=== PATIENT | male | born 1970 | race Caucasian/White ===

== ENCOUNTER 2016-10-05 13:47 | Inpatient (IN) | payer OTHER ==
[~2016-10-05] VITALS: Ht 182.9 cm; Wt 146.4 kg
[~2016-10-05 13:47] MED LIST: ALBU1AER9 INH; CYCL10TA6 PO; CYM/30 PO; CYM60 PO; GABA1CAP4 PO; NRN600 PO; ONDA4TAB46 PO; OXY/15 PO
[2016-10-05] MEDS ORDERED: LORAZEPAM 1 MG TAB SL STA (14:22)
--- NOTE | 2016-10-05 14:26 | EMERGENCY ROOM VISIT NOTE ---
History Report prepared by Aelk: Ashleigh Franco Under the Supervision of: Dr. Stanton Dyer D.O. First contact with patient: 14:08 Chief Complaint: MENTAL HEALTH EVALUATION Stated Complaint: SUICIDAL History of Present Illness The patient is a 46 year old male who presents to the Emergency Room with complaints of worsening feelings of suicidality. This past Wednesday, 2 days ago , he attempted suicide by drinking acetone and cutting his arm. He admits to recent thoughts of wanting to hurt himself and states he will wake up in the middle of the night "feeling like I'm dying". He went to [facility] to try and get help, but states they sent him home "and didn't do anything" for him. He notes he did experience some diarrhea the evening after he drank the acetone, but denies any vomiting. The patient has a history of anxiety and depression but states this is the first time he has ever attempted an overdose. He has not taken his regular medications yet today. He follows with Dr. Villalpando at [facility] for psychiatric care and states his called them this morning, but the phone call was dropped and she never heard back from them. The patient denies any ETOH or illegal drug use today. He has been treated inpatient at the [address] at [facility] and [place] in the past. Source of History: patient Onset: RN POSTPARTUM Position: other (global) Timing: worsening Associated Symptoms: + diarrhea Review of Systems See HPI for pertinent positives & negatives. A total of 10 systems reviewed and were otherwise negative. Past Medical & Surgical Medical Problems: (1) Anxiety and depression (2) Chronic pain syndrome (3) COPD, moderate (4) Narcotic dependence (5) Obesity (6) Positive blood culture (7) Pulmonary embolism (8) Suicidal ideation (9) Urinary retention Surgical Problems: (1) History of back surgery Family History Cancer Diabetes mellitus Heart disease Kidney disease Kidney stones Lung disease Social History Smoking Status: Current Every Day Smoker Alcohol Use: none Drug Use: none Marital Status: in relationship Housing Status: lives with family, alf Occupation Status: disabled Current/Historical Medications Scheduled Duloxetine HCl (Duloxetine HCl), 60 MG PO DAILY Duloxetine HCl (Cymbalta), 30 MG PO DAILY Finasteride (Proscar), 5 MG PO DAILY Gabapentin (Gabapentin), 600 MG PO HS Gabapentin (Gabapentin), 300 MG PO BID Hydroxyzine Pamoate (Vistaril), 50 MG PO BID Morphine Sulfate (Morphine Sulfate Er), 15 MG PO Q8 Omeprazole (Prilosec), 20 MG PO DAILY Oxycodone Hcl (Oxycodone Hcl), 15 MG PO 5XD Quetiapine Fumarate (Quetiapine Fumarate), 25 MG PO BID Topiramate (Topamax), 200 MG PO HS Trazodone Hcl (Desyrel), 100 MG PO HS Scheduled PRN Albuterol Sulfate (Proair Hfa), 2 PUFFS INH QID PRN for SOB/Wheezing Budesonide/Formoterol Fumarate (Symbicort 80/4.5 Inhaler), 1 PUFF INH BID PRN for COPD Cyclobenzaprine Hcl (Flexeril), 10 MG PO HS PRN for Muscle Spasm Lorazepam (Lorazepam), 1 MG PO BID PRN for Anxiety Ondansetron (Ondansetron HCl), 4 MG PO QID PRN for Nausea or Vomiting Polyethylene (Polyethylene Glycol 3350), 1 DOSE PO DAILY PRN for Constipation Sumatriptan Succinate (Sumatriptan Succinate), 6 MG SC UD PRN for Migraine Allergies Coded Allergies: Fentanyl (Verified Allergy, Intermediate, RASH/HIVES/SKIN REDNESS, 10/05/16 ) FROM PATCH ONLY Valproic Acid (Verified Adverse Reaction, Intermediate, PANCREATITIS, 10/05) Valproic Acid and Related (Verified Adverse Reaction, Intermediate, PANCREATITS, 10/05/16) Physical Exam Vital Signs Date Time Temp Pulse Resp B/P Pulse Ox O2 Delivery O2 Flow Rate FiO2 10/05/16 16:00 99 18 131/112 10/05/16 14:03 37.0 105 18 138/78 98 Room Air Physical Exam GENERAL: Patient is awake, alert, very anxious appearing and tearful, but does not appear to be in pain. EYES: The conjunctivae are clear. The pupils are round and reactive. EARS, NOSE, MOUTH AND THROAT: The nose is without any evidence of any deformity. Mucous membranes are moist tongue is midline NECK: The neck is nontender and supple. RESPIRATORY: Lung sounds are diminished throughout. Scattered rhonchi noted in all hendrickson, no tachypnea or dyspnea noted to auscultation. CARDIOVASCULAR: Regular rate and rhythm noted there no murmurs rubs or gallops normal S1 normal S2 GASTROINTESTINAL: The abdomen is soft. Bowel sounds are present in all quadrants. Abdomen is nontender MUSCULOSKELETAL/EXTREMITIES: There is no evidence of gross deformity full range of motion is noted in the hips and shoulders SKIN: Healing superficial laceration to left forearm. There is no obvious evidence of any rash. There are no petechiae, pallor or cyanosis noted. NEUROLOGIC: Patient is awake alert and oriented x3 strength is symmetric patellar reflexes are 2+ bilaterally PSYCHIATRIC: Tearful and anxious appearing, admits to SI and recounts the suicide gesture over the weekend. Medical Decision & Procedures ER Provider Diagnostic Interpretation: This X-Ray was reviewed and interpreted by myself and the radiologist. CHEST ONE VIEW PORTABLE IMPRESSION: 1. No acute findings. 2. Mild left basilar opacity suggestive of atelectasis. Electronically signed by: Evelio Corbin M.D. 10/05/2016 2:47 PM Laboratory Results 10/05/16 14:54 Red Blood Count 5.12, Mean Corpuscular Volume 82.0, Mean Corpuscular Hemoglobin 27.3, Mean Corpuscular Hemoglobin Concent 33.3, Mean Platelet Volume 10.6, Neutrophils (%) (Auto) 70.4, Lymphocytes (%) (Auto) 18.9, Monocytes (%) (Auto) 9.0, Eosinophils (%) (Auto) 1.1, Basophils (%) (Auto) 0.4, Neutrophils # (Auto) 7.46, Lymphocytes # (Auto) 2.00, Monocytes # (Auto) 0.95, Eosinophils # (Auto) 0.12, Basophils # (Auto) 0.04 10/05/16 14:54 Test 10/05/16 14:15 10/05/16 14:54 Urine Color YELLOW Urine Appearance CLEAR (CLEAR) Urine pH 6.5 (4.5-7.5) Urine Specific [place] 1.026 (1.000-1.030) Urine Protein NEG (NEG) Urine Glucose (UA) NEG (NEG) Urine Ketones NEG (NEG) Urine Occult Blood NEG (NEG) Urine Nitrite NEG (NEG) Urine Bilirubin NEG (NEG) Urine Urobilinogen NEG (NEG) Urine Leukocyte Esterase NEG (NEG) Urine Opiates Screen POS (NEG) Urine Methadone, Qualitative NEG (NEG) Urine Barbiturates NEG (NEG) Urine Phencyclidine (PCP) Level NEG (NEG) Ur Amphetamine/Methamphetamine NEG (NEG) MDMA (Ecstasy) Screen POS (NEG) Urine Benzodiazepines Screen NEG (NEG) Urine Cocaine Metabolite NEG (NEG) Urine Marijuana (THC) NEG (NEG) White Blood Count 10.59 K/uL (4.8-10.8) Red Blood Count 5.12 M/uL (4.7-6.1) Hemoglobin 14.0 g/dL (14.0-18.0) Hematocrit 42.0 % (42-52) Mean Corpuscular Volume 82.0 fL (80-100) Mean Corpuscular Hemoglobin 27.3 pg (25-34) Mean Corpuscular Hemoglobin Concent 33.3 g/dl (32-36) Platelet Count 204 K/uL (130-400) Mean Platelet Volume 10.6 fL (7.4-10.4) Neutrophils (%) (Auto) 70.4 % Lymphocytes (%) (Auto) 18.9 % Monocytes (%) (Auto) 9.0 % Eosinophils (%) (Auto) 1.1 % Basophils (%) (Auto) 0.4 % Neutrophils # (Auto) 7.46 K/uL (1.4-6.5) Lymphocytes # (Auto) 2.00 K/uL (1.2-3.4) Monocytes # (Auto) 0.95 K/uL (0.11-0.59) Eosinophils # (Auto) 0.12 K/uL (0-0.5) Basophils # (Auto) 0.04 K/uL (0-0.2) RDW Standard Deviation 50.4 fL (36.4-46.3) RDW Coefficient of Variation 16.7 % (11.5-14.5) Immature Granulocyte % (Auto) 0.2 % Immature Granulocyte # (Auto) 0.02 K/uL (0.00-0.02) Prothrombin Time 10.7 SECONDS (9.0-12.0) Prothromb Time International Ratio 1.0 (0.9-1.1) Activated Partial Thromboplast Time 26.4 SECONDS (21.0-31.0) Partial Thromboplastin Ratio 1.0 Anion Gap 9.0 mmol/L (3-11) Est Creatinine Clear Calc Drug Dose 152.5 ml/min Estimated GFR () 118.3 Estimated GFR (Non- 102.1 BUN/Creatinine Ratio 13.7 (10-20) Osmolality 297 mOsm/kg (280-300) Calcium Level 9.2 mg/dl (8.5-10.1) Total Bilirubin 0.3 mg/dl (0.2-1) Direct Bilirubin < 0.1 mg/dl (0-0.2) Aspartate Amino Transf (AST/SGOT) 14 U/L (15-37) Alanine Aminotransferase (ALT/SGPT) 20 U/L (12-78) Alkaline Phosphatase 88 U/L (45-117) Total Creatine Kinase 122 U/L (39-308) Creatine Kinase MB 0.5 ng/ml (0.5-3.6) Creatine Kinase MB Ratio 0.4 (0-3.0) Troponin I < 0.015 ng/ml (0-0.045) Total Protein 6.6 gm/dl (6.4-8.2) Albumin 3.1 gm/dl (3.4-5.0) Lipase 134 U/L (73-393) Salicylates Level < 1.7 mg/dl (2.8-20) Acetaminophen Level < 2 ug/ml (10-30) Ethyl Alcohol mg/dL < 3.0 mg/dl (0-3) Laboratory results per my review. Medications Administered Medications (Trade) Dose Ordered Sig/Amalia Route Start Time Stop Time Status Last Admin Dose Admin Lorazepam (Ativan Tab) 1 mg NOW STAT SL 10/05/16 14:22 10/05/16 14:23 DC 10/05/16 15:42 1 MG Ibuprofen (Motrin Tab) 600 mg NOW STAT PO 10/05/16 17:09 10/05/16 17:10 DC 10/05/16 17:40 600 MG ECG Indication: other (mental health evaluation) Rate (beats per minute): 87 Rhythm: normal sinus (normal sinus rhythm) Findings: no ectopy, other (no acute ST segment abnormalities) Change: no significant change (No change from September 15, 2016) ED Course 1419: The patient was evaluated in room A8. A complete history and physical examination were performed. 1422: Ativan 1 mg SL. 1709: Ibuprofen 600 mg PO. 1715: I discussed the patient's case with [facility]'s Psychiatric Care Floor. The patient will be further evaluated. Medical Decision Prior records/ancillary studies reviewed. Triage Nursing notes reviewed. The patient's history was concerning for possible psychiatric disturbance. Differential diagnosis: Etiologies such as mood disorder, infection, hypoglycemia, electrolyte abnormalities, cardiac sources, intracerebral event, toxicologic, neurologic, as well as others were entertained. The patient is a 46-year-old male who presented to the emergency department for an evaluation of mental health problems. The patient was treated with Ativan in the emergency department. He was reevaluated multiple times. He was medically cleared in the emergency department. He was felt to be a good candidate for inpatient management. He was evaluated by the mental health delegate in the emergency department and was admitted as a 201 voluntary mental health admission. The patient was evaluated at an outside facility and sent home a few days prior. He had suicidal ideation and also cut himself. Consults Time Called: 1710 Consulting Physician: [address] [place] [address]'s Psychiatric Care Floor Returned Call: [phone] I discussed the patient's case with [address] [place] [address]'s Psychiatric Care Floor. The patient will be further evaluated. Impression Primary Impression: Depression Additional Impressions: Suicidal ideation Suicide gesture Scribe Attestation The scribe's documentation has been prepared under my direction and personally reviewed by me in its entirety. I confirm that the note above accurately reflects all work, treatment, procedures, and medical decision making performed by me. Departure Information Dispostion Mental Health Acute Care (The patient will be further evaluated by [address] [place] [address] 's Psychiatric Care Floor ) Referrals Tesha Loredo M.D. (MEDICAL) (PCP) Patient Instructions My [facility] Problem Qualifiers
--- NOTE | 2016-10-05 14:49 | DIAGNOSTIC IMAGING REPORT ---
CHEST ONE VIEW PORTABLE CLINICAL HISTORY: Overdose. COMPARISON STUDY: Chest radiograph September 15, 2016. FINDINGS: Lung volumes are at the lower limits of normal. Mild left basilar opacity likely reflects atelectasis. There is no evidence of pulmonary edema. Cardiac size is normal. Mediastinal contours are normal. IMPRESSION: 1. No acute findings. 2. Mild left basilar opacity suggestive of atelectasis. Electronically signed by: Evelio Corbin M.D. 10/05/2016 2:47 PM Dictated Date/Time: 10/05/2016 2:46 PM
[2016-10-05 14:56] LABS: URINE APPEARANCE CLEAR (CLEAR); URINE BILIRUBIN NEG (NEG); URINE COLOR YELLOW; URINE NITRITE NEG (NEG); URINE PH 6.5 (4.5-7.5); URINE SPECIFIC GRAVITY 1.026 (1.000-1.030); UROBILINOGEN NEG (NEG)
[2016-10-05 15:08] LABS: MANUAL MICROSCOPIC REQUIRED? NO; REVIEW REQ? NO
[2016-10-05 15:14] LABS: BENZODIAZEPINE, URINE NEG (NEG); COCAINE,URINE NEG (NEG); PHENCYCLIDINE, URINE NEG (NEG)
[2016-10-05 15:14] LABS: BASO % 0.4 %; BASO ABS # 0.04 K/uL (0-0.2); COMPLETE YES; EOS % 1.1 %; IG% 0.2 %; LYMPH % 18.9 %; MEAN CORPUSCULAR HEMOGLOBIN 27.3 pg (25-34); MEAN CORPUSCULAR HGB CONC 33.3 g/dl (32-36); MEAN PLATELET VOLUME 10.6 fL (7.4-10.4); NEUT % 70.4 %; PLATELET COUNT 204 K/uL (130-400); RED BLOOD COUNT 5.12 M/uL (4.7-6.1); WHITE BLOOD COUNT 10.59 K/uL (4.8-10.8)
[2016-10-05 15:24] LABS: PROTHROMBIN TIME (PATIENT) 10.7 SECONDS (9.0-12.0)
[2016-10-05 15:33] LABS: ALT/SGPT 20 U/L (12-78); BLOOD UREA NITROGEN 12 mg/dl (7-18); BUN/CREATININE RATIO 13.7 (10-20); CALCIUM 9.2 mg/dl (8.5-10.1); CARBON DIOXIDE 24 mmol/L (21-32); CHLORIDE 111 mmol/L (98-107); GLUCOSE 91 mg/dl (70-99); POTASSIUM 4.1 mmol/L (3.5-5.1); SODIUM 144 mmol/L (136-145)
[2016-10-05 15:38] LABS: ALKALINE PHOSPHATASE 88 U/L (45-117); AST/SGOT 14 U/L (15-37); CKMB/CK RATIO 0.4 (0-3.0)
[2016-10-05] MEDS ORDERED: IBUPROFEN 600 MG TAB PO STA (17:09)
[2016-10-05] MEDS ORDERED: BISMUTH SUBSALICYLATE PER ML OMNICELL CHARGE PO PRN (17:30)
[2016-10-05] MEDS ORDERED: ACETAMINOPHEN 325 MG TAB PO PRN (17:30)
[2016-10-05] MEDS ORDERED: hydrOXYzine HCL 25 MG TAB PO PRN ×2 (17:30)
[2016-10-05] MEDS ORDERED: ONDANSETRON 4 MG TAB PO PRN (17:30)
[2016-10-05] MEDS ORDERED: SODIUM CHLORIDE 0.65% NA SOLN 45 ML (OCEAN) PRN (17:30)
[2016-10-05] MEDS ORDERED: ALUMINUM/MAGNESIUM SUSP 30 ML UDC PO PRN (17:30)
[2016-10-05 17:55] LABS: ACETAMINOPHEN < 2 ug/ml (10-30)
[2016-10-05 18:42] VITALS: O2SAT 99
[2016-10-05 19:42] VITALS: BP 132/85; PULSE 90; TEMP 37; Ht 182.9 cm; Wt 146.4 kg
[2016-10-05] MEDS ORDERED: GABAPENTIN 600 MG TAB PO SCH (21:00)
[2016-10-05] MEDS: TOPIRAMATE 100 MG TAB PO SCH (21:19)
[2016-10-05] MEDS: QUETIAPINE FUMARATE 25 MG TAB PO SCH (21:19)
[2016-10-05] MEDS: TRAZODONE HCL 100 MG TAB PO SCH (21:19)
[2016-10-05] MEDS: CYCLOBENZAPRINE HCL 10 MG TAB PO PRN (21:22)
[2016-10-05] MEDS ORDERED: NURSING VERBAL MED ORDER ONE ×2 (21:30→22:15)
[2016-10-05] MEDS ORDERED: NICOTINE POLACRILEX 2 MG GUM MT PRN (22:00)
[2016-10-06 06:45] VITALS: BP_SYST 106; BP_SYST 128; BP_DIAS 68; BP_DIAS 75; PULSE 77; PULSE 97; TEMP 36.5
[2016-10-06] MEDS ORDERED: GABAPENTIN 300 MG CAP PO SCH (07:00)
[2016-10-06] MEDS: NICOTINE 21 MG/24 HR TDSY EXT SCH (08:40)
[2016-10-06] MEDS: QUETIAPINE FUMARATE 25 MG TAB PO SCH ×2 (08:41→21:08)
[2016-10-06] MEDS: FINASTERIDE 5 MG TAB PO SCH (08:41)
[2016-10-06] MEDS: DULOXETINE HCL 60 MG CAP PO SCH (08:41)
[2016-10-06] MEDS: DULOXETINE (CYMBALTA) 30 MG CAP PO SCH (08:41)
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
[2016-10-06] MEDS: GABAPENTIN 600 MG TAB PO SCH ×2 (13:08→21:07)
[2016-10-06] MEDS: OXYCODONE HCL IR 5 MG TAB (IMMEDIATE RELEASE) PO PRN ×2 (13:10→19:12)
[2016-10-06] MEDS: MoRPHine SULFATE IR 15 MG TAB (IMMEDIATE RELEASE) PO SCH ×2 (14:09→21:07)
[2016-10-06] MEDS: SUMATRIPTAN SUCCINATE 6 MG/0.5 ML VIAL SQ PRN (15:19)
[2016-10-06] MEDS: TRAZODONE HCL 100 MG TAB PO SCH (21:06)
[2016-10-06] MEDS: TOPIRAMATE 100 MG TAB PO SCH (21:08)
[2016-10-07] MEDS: LORAZEPAM 1 MG TAB PO PRN ×2 (00:44→17:47)
[2016-10-07] MEDS: OXYCODONE HCL IR 5 MG TAB (IMMEDIATE RELEASE) PO PRN ×4 (01:24→20:35)
[2016-10-07] MEDS: MoRPHine SULFATE IR 15 MG TAB (IMMEDIATE RELEASE) PO SCH ×3 (06:20→21:04)
[2016-10-07 06:43] VITALS: BP_SYST 106; BP_SYST 117; BP_DIAS 69; BP_DIAS 72; PULSE 79; PULSE 86; TEMP 36.5
[2016-10-07 08:03] LABS: CHOLESTEROL/HDL RATIO 4.2; THYROID STIMULATING HORMONE 2.24 uIu/ml (0.300-4.500)
[2016-10-07] MEDS: DULOXETINE (CYMBALTA) 30 MG CAP PO SCH (08:54)
[2016-10-07] MEDS: NICOTINE 21 MG/24 HR TDSY EXT SCH (08:54)
[2016-10-07] MEDS: GABAPENTIN 600 MG TAB PO SCH ×3 (08:55→21:05)
[2016-10-07] MEDS: DULOXETINE HCL 60 MG CAP PO SCH (08:55)
[2016-10-07] MEDS: PANTOprazole SOD 40 MG TAB PO SCH (08:55)
[2016-10-07] MEDS: FINASTERIDE 5 MG TAB PO SCH (08:55)
[2016-10-07] MEDS: QUETIAPINE FUMARATE 25 MG TAB PO SCH ×2 (08:55→21:05)
[2016-10-07] MEDS: ALBUTEROL HFA 8 GM INHALER INH PRN (08:56)
[2016-10-07] MEDS: BUDESONIDE/FORMOTEROL FUMARATE 80/4.5 60 PUFFS/INHALER INH PRN (08:56)
--- NOTE | 2016-10-07 13:08 | Psychiatric Progress Notes ---
Progress Note Date of Service Oct 07, 2016. Interval History Stanton Milner is a 46-year-old male from [place], [place], who was admitted to our unit on a 201 voluntary commitment with severe depression, suicidality and anxiety. Information is gathered from the patient, the electronic medical record, and the [place] prescription drug monitoring program. Chief Complaint "Still feel like I'm dying at night, can't explain it". Subjective Patient continues to report waking up at night and "getting this weird feeling, feel like I'm dying, I can't explain it." He cannot be more specific, saying "I can't explain it" when asked. He is distraught by this, saying he "doesn't get it and don't know why I feel like that. I'm sick of it." During the day, he feels "anxious, but here you have people to talk to and stuff, keeps your mind from having a huge interference in it." He says he is "still suicidal," saying he is "embarrassed by it, I actually cut myself this time and drank acetone, never went that far...I used to be a strong person, don't think I am anymore." Sleep Information Total Hours of Sleep: 4.50 Meal Information Percent of Breakfast Consumed: 50 Percent of Lunch Consumed: 20 Percent of Dinner Consumed: 100 Mental Status Exam During interview pt is: alert and oriented, cooperative Appearance: appropriately dressed, disheveled Eye contact is: poor Motor behavior is: steady gait & station, no abnormal motor movements Speech: normal in rate, rhythm & volume Affect: depressed Mood is: depressed Thought process: goal directed Thought content: reality based without delusions Suicidal thought are: present Homicidal thoughts are: denied Hallucinations: denies auditory, denies visual Cognition: memory grossly intact, attention grossly intact, language grossly intact Intelligence estimated to be: average Insight: impaired Judgement: impaired Summary of Past History : A 46-year-old gentleman admitted voluntarily for treatment of depression and anxiety. He reports this has been increasing and claims not understand why, although in the same breath, he says he is being evicted from his home. Our goal will be to appropriately treat his pain, which will include confirming his outpatient prescriptions and providers. We are certainly concerned by what we see in the [place] prescription drug monitoring program and we will make sure that we are coordinating with his other outpatient providers. We will establish a family meeting with his fianceePriya as soon as possible. He has signed 2 contracts; one is a behavioral contract, requiring that he attend programming, participate positively in his treatment, etc. This second is a contract established by risk management here at the hospital, which includes the fact that he should not ambulate without assistance in view of history of frequent falls. So far, the patient is resistant to abiding by the assisted ambulation contracts, saying that he does not need it. We will coordinate care with his outpatient psychiatrist. He says that he has been on higher doses of Cymbalta in the past and does not remember that it was helpful in any way. He has never had an augmentation strategy with Abilify and is currently on low-dose Seroquel. We will further explore medication options, but at this time, will likely increase gabapentin to 600 mg t.i.d. to target chronic pain and anxiety/mood stabilization. At this time, the patient requires inpatient mental health treatment due to the severity of his condition and the risk for self-harm if discharged. DIAGNOSES: 1. Major depressive disorder, recurrent, severe, without psychotic features. 2. Narcissistic and antisocial personality disorder. 3. Opioid dependence. 4. Benzodiazepine dependence. 5. Obesity with a current BMI of 43.8. 6. Chronic pain, on chronic opioids. 7. Type 2 diabetes. 8. Benign prostatic hypertrophy. Plan (1) Suicide gesture - safety checks - participate in groups - work on healthy coping skills and safety plan - family meeting with girlfriend to review safety concerns (2) Depression 10/06 - Continue Cymbalta 90 mg daily. - Encourage participation in group and individual counseling. According to the contractor, he has signed, he will participate in every group. - Obtain records from and coordinate care with current outpatient providers. - Recommend a therapist. 10/07 - Pt agreeable to therapy referral. (3) Anxiety 10/06 - Continue home dose of Ativan, being prescribed by Urgent [facility] in [place]. - Increase gabapentin to 600 mg t.i.d. (4) Personality disorder Has both antisocial and narcissistic traits The patient has signed a behavioral contract that will guide his behavior here on the unit in view of his past behaviors, which were felt to be disruptive. Assist the patient to learn and utilize additional healthy coping strategies. As per the contract, encourage the patient to use his verbal skills to express his feelings rather than acting them out. (5) Narcotic dependence Long history of abusing pain pills. Signed ERNESTO for current opiate and benzo prescriber, who is in [place]. [place] drug database shows he is filling controlled substance prescriptions from multiple prescribers across the state. Coordinate with all outpatient prescribers regarding his medications. Encourage daily physical activity as tolerated. (6) Obesity Encourage healthy diet and weight loss (7) Diabetes 10/06 - Diabetic diet. - Consult dietitian. (8) BPH (benign prostatic hypertrophy) Continue home medications. Discharge / Aftercare Planning Primary Care Physician: Name: Dr Loredo Psychiatrist: Name: Dr Mata at [facility] Therapist: Name: pt is considering having a therapist thru [facility] Delivery Engineer: Name: declined Visit Code E&M Code: 99463 Risk Factors Assessment Male: Yes : Yes /single/: No Higher / Fall in social status: No Health problems: Yes Mental Health Diagnoses: Yes Substance use disorders: Yes Previous attempt: No Previous psychiatric stay: Yes Hopelessness: No Smoker: Yes Protective Factors Assessment : No Responsible for young children: No Employed: No Stable relationships: Yes Supportive family: Yes Data Vital Signs Last 24 Hrs: Date Time Temp Pulse Resp B/P Pulse Ox O2 Delivery O2 Flow Rate FiO2 10/07/16 06:43 36.5 79 16 117/72 86 106/69 Meds Administered Last 24 Hrs: Meds Administered (Past 24Hrs) Medications (Trade) Dose Ordered Sig/Amalia Route Start Time Stop Time Status Last Admin Dose Admin Lorazepam (Ativan Tab) 1 mg NOW STAT SL 10/05/16 14:22 10/05/16 14:23 DC 10/05/16 15:42 1 MG Ibuprofen (Motrin Tab) 600 mg NOW STAT PO 10/05/16 17:09 10/05/16 17:10 DC 10/05/16 17:40 600 MG Albuterol (Ventolin Hfa Inhaler) 2 puffs QID PRN INH 10/05/16 17:30 11/04/16 17:29 10/07/16 08:56 2 PUFFS Budesonide/ Formoterol Fumarate (Symbicort 80/ 4.5 Inh) 2 puffs BID PRN INH 10/05/16 17:30 11/04/16 17:29 10/07/16 08:56 2 PUFFS Cyclobenzaprine HCl (Flexeril Tab) 10 mg HS PRN PO 10/05/16 17:30 11/04/16 17:29 10/05/16 21:22 10 MG Duloxetine HCl (Cymbalta Cap) 60 mg DAILY PO 10/06/16 09:00 11/05/16 08:59 10/07/16 08:55 60 MG Duloxetine HCl (Cymbalta Cap) 30 mg DAILY PO 10/06/16 09:00 11/05/16 08:59 10/07/16 08:54 30 MG Finasteride (Proscar Tab) 5 mg DAILY PO 10/06/16 09:00 11/05/16 08:59 10/07/16 08:55 5 MG Gabapentin (Neurontin Cap) 300 mg [id number] PO 10/06/16 07:00 10/06/16 10:54 DC 10/06/16 06:46 300 MG Gabapentin (Neurontin Tab) 600 mg HS PO 10/05/16 21:00 10/06/16 10:54 DC 10/05/16 21:19 600 MG Quetiapine Fumarate (seroQUEL TAB) 25 mg BID PO 10/05/16 21:00 11/04/16 20:59 10/07/16 08:55 25 MG Topiramate (Topamax Tab) 200 mg HS PO 10/05/16 21:00 11/04/16 20:59 10/06/16 21:08 200 MG Trazodone HCl (Desyrel Tab) 100 mg HS PO 10/05/16 21:00 11/04/16 20:59 10/06/16 21:06 100 MG Nicotine (Nicoderm Cq 21MG Patch) 1 patch QAM EXT 10/06/16 09:00 11/05/16 08:59 10/07/16 08:54 1 PATCH Miscellaneous (Remove Nicoderm Patch) 1 ea QAM N/A 10/06/16 09:00 11/05/16 08:59 10/07/16 08:54 1 EA Gabapentin (Neurontin Tab) 600 mg TID PO 10/06/16 14:00 11/05/16 13:59 10/07/16 08:55 600 MG Pantoprazole Sodium (Protonix Tab) 40 mg QAM PO 10/07/16 09:00 11/06/16 08:59 10/07/16 08:55 40 MG Sumatriptan Succinate (Imitrex Sq Inj) 6 mg DAILY PRN SQ 10/06/16 10:45 11/05/16 10:44 10/06/16 15:19 6 MG Morphine Sulfate (MoRPHine SULFATE IR TAB) 15 mg Q8H PO 10/06/16 14:00 10/20/16 12:14 10/07/16 06:20 15 MG Lorazepam (Ativan Tab) 1 mg BID PRN PO 10/06/16 12:15 11/05/16 12:14 10/07/16 00:44 1 MG Oxycodone HCl (Roxicodone Immediate Rel Tab) 15 mg Q6H PRN PO 10/06/16 12:15 10/20/16 12:14 10/07/16 07:26 15 MG Lab Results Last 24 Hrs: Last 24 Hours Test 10/07/16 06:55 Fasting Glucose 99 mg/dl Triglycerides Level 95 mg/dl Cholesterol Level 171 mg/dl HDL Cholesterol 41 mg/dl LDL Cholesterol, Calculated 111 mg/dl VLDL Cholesterol, Calculated 19 mg/dl Cholesterol/HDL Ratio 4.2 Thyroid Stimulating Hormone (TSH) 2.240 uIu/ml Problem Qualifiers (1) Diabetes: Diabetes mellitus type: type 2
[2016-10-07] MEDS: POLYETHYLENE (MIRALAX) 17 GM PACK PO PRN (14:41)
[2016-10-07] MEDS: SUMATRIPTAN SUCCINATE 6 MG/0.5 ML VIAL SQ PRN (17:15)
[2016-10-07] MEDS: TRAZODONE HCL 100 MG TAB PO SCH (21:04)
[2016-10-07] MEDS: TOPIRAMATE 100 MG TAB PO SCH (21:05)
[2016-10-08] MEDS: LORAZEPAM 1 MG TAB PO PRN ×2 (00:15→16:18)
[2016-10-08] MEDS: MoRPHine SULFATE IR 15 MG TAB (IMMEDIATE RELEASE) PO SCH ×3 (06:06→22:05)
[2016-10-08 06:50] VITALS: BP_SYST 104; BP_SYST 110; BP_DIAS 72; BP_DIAS 73; PULSE 83; PULSE 90; TEMP 36.4
[2016-10-08] MEDS: OXYCODONE HCL IR 5 MG TAB (IMMEDIATE RELEASE) PO PRN ×3 (07:33→20:49)
[2016-10-08] MEDS: PANTOprazole SOD 40 MG TAB PO SCH (09:01)
[2016-10-08] MEDS: QUETIAPINE FUMARATE 25 MG TAB PO SCH ×2 (09:01→22:05)
[2016-10-08] MEDS: FINASTERIDE 5 MG TAB PO SCH (09:01)
[2016-10-08] MEDS: NICOTINE 21 MG/24 HR TDSY EXT SCH (09:01)
[2016-10-08] MEDS: DULOXETINE (CYMBALTA) 30 MG CAP PO SCH (09:01)
[2016-10-08] MEDS: DULOXETINE HCL 60 MG CAP PO SCH (09:01)
[2016-10-08] MEDS: GABAPENTIN 600 MG TAB PO SCH ×3 (09:01→22:05)
[2016-10-08] MEDS: POLYETHYLENE (MIRALAX) 17 GM PACK PO PRN (11:00)
--- NOTE | 2016-10-08 11:06 | Psychiatric Progress Notes ---
Progress Note Date of Service Oct 08, 2016. Interval History Stanton Milner is a 46-year-old male from [place], [place], who was admitted to our unit on a 201 voluntary commitment with severe depression, suicidality and anxiety. Information is gathered from the patient, the electronic medical record, and the [place] prescription drug monitoring program. Chief Complaint "I'm angry with myself.". Subjective Patient was seen & assessed interval progress reviewed with Treatment Team. the patient said that he was able to fall asleep, but still woke "with that dying feeling". He reports that his mood is "angry with myself" that he has allowed his condition to get to the point of suicidality, not being in control of himself, and worrying that he would make an attempt if at home. He agrees that "its time" to go to OP therapy to talk with someone about how he got to this place. Arrangements have not yet been made with Estrella for a family meeting but patient believes that she would be available for a phone meeting. He reports good appetite. Anxiety is "better during the day" when he can be with people and talk with his peers, but still highly anxious at night, He is asking about increasing his trazodone and cymbalta. Review of Systems Constitutional: + fatigue ENT: No dental problems, No hearing loss, No nasal symptoms, No problem reported, No sore throat, No tinnitus, No trouble swallowing, No unusual epistaxis Respiratory: No cough, No dyspnea at rest, No dyspnea on exertion, No hemoptysis, No problem reported, No shortness of breath, No sputum, No wheezing Cardiovascular: No PND, No chest pain, No claudication, No edema, No orthopnea , No palpitations, No problem reported Abdomen: No GI bleeding, No constipation, No diarrhea, No nausea, No pain, No problem reported, No vomiting Musculoskeletal: + problem reported (No reports of pain during the interview, and no evidence of painful movements) Neurologic: No balance problems, No memory loss, No numbness/tingling, No paralysis, No problem reported, No vertigo, No weakness Psychiatric: + anxiety, + depression symptoms, + insomnia Integumentary: No bleeding, No color change, No itch, No new/changing skin lesions, No problem reported, No rash Sleep Information Total Hours of Sleep: 3.00 Meal Information Percent of Breakfast Consumed: 100 Percent of Lunch Consumed: 20 Percent of Dinner Consumed: 100 Mental Status Exam During interview pt is: alert and oriented, cooperative Appearance: appropriately dressed, disheveled Eye contact is: poor Motor behavior is: steady gait & station, no abnormal motor movements Speech: normal in rate, rhythm & volume Affect: depressed Mood is: depressed Thought process: goal directed Thought content: reality based without delusions Suicidal thought are: present, Plan: denied, Intent: denied Homicidal thoughts are: denied Hallucinations: denies auditory, denies visual Cognition: memory grossly intact, attention grossly intact, language grossly intact Intelligence estimated to be: average Insight: impaired Judgement: impaired Summary of Past History : A 46-year-old gentleman admitted voluntarily for treatment of depression and anxiety. He reports this has been increasing and claims not understand why, although in the same breath, he says he is being evicted from his home. Our goal will be to appropriately treat his pain, which will include confirming his outpatient prescriptions and providers. We are certainly concerned by what we see in the [place] prescription drug monitoring program and we will make sure that we are coordinating with his other outpatient providers. We will establish a family meeting with his fianceePriya as soon as possible. He has signed 2 contracts; one is a behavioral contract, requiring that he attend programming, participate positively in his treatment, etc. This second is a contract established by risk management here at the hospital, which includes the fact that he should not ambulate without assistance in view of history of frequent falls. So far, the patient is resistant to abiding by the assisted ambulation contracts, saying that he does not need it. We will coordinate care with his outpatient psychiatrist. He says that he has been on higher doses of Cymbalta in the past and does not remember that it was helpful in any way. He has never had an augmentation strategy with Abilify and is currently on low-dose Seroquel. We will further explore medication options, but at this time, will likely increase gabapentin to 600 mg t.i.d. to target chronic pain and anxiety/mood stabilization. At this time, the patient requires inpatient mental health treatment due to the severity of his condition and the risk for self-harm if discharged. DIAGNOSES: 1. Major depressive disorder, recurrent, severe, without psychotic features. 2. Narcissistic and antisocial personality disorder. 3. Opioid dependence. 4. Benzodiazepine dependence. 5. Obesity with a current BMI of 43.8. 6. Chronic pain, on chronic opioids. 7. Type 2 diabetes. 8. Benign prostatic hypertrophy. Impression The patient is benefitting from the peer contact here, something that he doesn' t get at home. He continues to report poor sleep and suicidality, saying that he is not ready for discharge. He has been thwarting attempts to arrange a family meeting, putting himself between Nikke and attempts to contact her for a meeting. Today we will increase Cymbalta to 120 mg. daily and increase trazodone to 150 mg. for sleep. Continued Inpatient Care The patient requires inpatient care due to the severity of his condition and the risk for self harm if discharged. Plan (1) Suicide gesture - safety checks - participate in groups - work on healthy coping skills and safety plan - family meeting with girlfriend to review safety concerns (2) Depression 10/06 - Continue Cymbalta 90 mg daily. - Encourage participation in group and individual counseling. According to the contractor, he has signed, he will participate in every group. - Obtain records from and coordinate care with current outpatient providers. - Recommend a therapist. 10/07 - Pt agreeable to therapy referral. 10/08 - Increase Cymbalta to 120 mg daily - Increase Trazodone to 150 mg. for sleep - Arrange family meeting (3) Anxiety 10/06 - Continue home dose of Ativan, being prescribed by Urgent [facility] in [place]. - Increase gabapentin to 600 mg t.i.d. 10/08 - Assist the patient to learn and utilize healthy coping strategies (4) Personality disorder Has both antisocial and narcissistic traits The patient has signed a behavioral contract that will guide his behavior here on the unit in view of his past behaviors, which were felt to be disruptive. Assist the patient to learn and utilize additional healthy coping strategies. As per the contract, encourage the patient to use his verbal skills to express his feelings rather than acting them out. (5) Narcotic dependence Long history of abusing pain pills. Signed ERNESTO for current opiate and benzo prescriber, who is in [place]. [place] drug database shows he is filling controlled substance prescriptions from multiple prescribers across the state. Coordinate with all outpatient prescribers regarding his medications. Encourage daily physical activity as tolerated. (6) Obesity Encourage healthy diet and weight loss (7) Diabetes 10/06 - Diabetic diet. - Consult dietitian. 10/08 - Encourage exercise (8) BPH (benign prostatic hypertrophy) Continue home medications. Discharge / Aftercare Planning Primary Care Physician: Name: Dr Loredo Psychiatrist: Name: Dr Mata at [facility] Therapist: Name: pt is considering having a therapist thru [facility] Vascular Sonographer: Name: declined Visit Code E&M Code: 93774 Risk Factors Assessment Male: Yes : Yes /single/: No Higher / Fall in social status: No Health problems: Yes Mental Health Diagnoses: Yes Substance use disorders: Yes Previous attempt: No Previous psychiatric stay: Yes Hopelessness: No Smoker: Yes Protective Factors Assessment : No Responsible for young children: No Employed: No Stable relationships: Yes Supportive family: Yes Data Vital Signs Last 24 Hrs: Date Time Temp Pulse Resp B/P Pulse Ox O2 Delivery O2 Flow Rate FiO2 10/08/16 06:50 36.4 83 16 104/72 90 110/73 Meds Administered Last 24 Hrs: Meds Administered (Past 24Hrs) Medications (Trade) Dose Ordered Sig/Amalia Route Start Time Stop Time Status Last Admin Dose Admin Gabapentin (Neurontin Tab) 600 mg TID PO 10/06/16 14:00 11/05/16 13:59 10/08/16 09:01 600 MG Pantoprazole Sodium (Protonix Tab) 40 mg QAM PO 10/07/16 09:00 11/06/16 08:59 10/08/16 09:01 40 MG Morphine Sulfate (MoRPHine SULFATE IR TAB) 15 mg Q8H PO 10/06/16 14:00 10/20/16 12:14 10/08/16 06:06 15 MG Lorazepam (Ativan Tab) 1 mg BID PRN PO 10/06/16 12:15 11/05/16 12:14 10/08/16 00:15 1 MG Oxycodone HCl (Roxicodone Immediate Rel Tab) 15 mg Q6H PRN PO 10/06/16 12:15 10/20/16 12:14 10/08/16 07:33 15 MG Lab Results Last 24 Hrs: 10/05/16 14:54 Red Blood Count 5.12, Mean Corpuscular Volume 82.0, Mean Corpuscular Hemoglobin 27.3, Mean Corpuscular Hemoglobin Concent 33.3, Mean Platelet Volume 10.6, Neutrophils (%) (Auto) 70.4, Lymphocytes (%) (Auto) 18.9, Monocytes (%) (Auto) 9.0, Eosinophils (%) (Auto) 1.1, Basophils (%) (Auto) 0.4, Neutrophils # (Auto) 7.46, Lymphocytes # (Auto) 2.00, Monocytes # (Auto) 0.95, Eosinophils # (Auto) 0.12, Basophils # (Auto) 0.04 10/05/16 14:54 Test 10/05/16 14:15 10/05/16 14:54 10/07/16 06:55 Urine Color YELLOW Urine Appearance CLEAR (CLEAR) Urine pH 6.5 (4.5-7.5) Urine Specific [place] 1.026 (1.000-1.030) Urine Protein NEG (NEG) Urine Glucose (UA) NEG (NEG) Urine Ketones NEG (NEG) Urine Occult Blood NEG (NEG) Urine Nitrite NEG (NEG) Urine Bilirubin NEG (NEG) Urine Urobilinogen NEG (NEG) Urine Leukocyte Esterase NEG (NEG) Urine Opiates Screen POS (NEG) Urine Methadone, Qualitative NEG (NEG) Urine Barbiturates NEG (NEG) Urine Phencyclidine (PCP) Level NEG (NEG) Ur Amphetamine/Methamphetamine NEG (NEG) MDMA (Ecstasy) Screen POS (NEG) Urine Benzodiazepines Screen NEG (NEG) Urine Cocaine Metabolite NEG (NEG) Urine Marijuana (THC) NEG (NEG) White Blood Count 10.59 K/uL (4.8-10.8) Red Blood Count 5.12 M/uL (4.7-6.1) Hemoglobin 14.0 g/dL (14.0-18.0) Hematocrit 42.0 % (42-52) Mean Corpuscular Volume 82.0 fL (80-100) Mean Corpuscular Hemoglobin 27.3 pg (25-34) Mean Corpuscular Hemoglobin Concent 33.3 g/dl (32-36) Platelet Count 204 K/uL (130-400) Mean Platelet Volume 10.6 fL (7.4-10.4) Neutrophils (%) (Auto) 70.4 % Lymphocytes (%) (Auto) 18.9 % Monocytes (%) (Auto) 9.0 % Eosinophils (%) (Auto) 1.1 % Basophils (%) (Auto) 0.4 % Neutrophils # (Auto) 7.46 K/uL (1.4-6.5) Lymphocytes # (Auto) 2.00 K/uL (1.2-3.4) Monocytes # (Auto) 0.95 K/uL (0.11-0.59) Eosinophils # (Auto) 0.12 K/uL (0-0.5) Basophils # (Auto) 0.04 K/uL (0-0.2) RDW Standard Deviation 50.4 fL (36.4-46.3) RDW Coefficient of Variation 16.7 % (11.5-14.5) Immature Granulocyte % (Auto) 0.2 % Immature Granulocyte # (Auto) 0.02 K/uL (0.00-0.02) Prothrombin Time 10.7 SECONDS (9.0-12.0) Prothromb Time International Ratio 1.0 (0.9-1.1) Activated Partial Thromboplast Time 26.4 SECONDS (21.0-31.0) Partial Thromboplastin Ratio 1.0 Anion Gap 9.0 mmol/L (3-11) Est Creatinine Clear Calc Drug Dose 152.5 ml/min Estimated GFR () 118.3 Estimated GFR (Non- 102.1 BUN/Creatinine Ratio 13.7 (10-20) Osmolality 297 mOsm/kg (280-300) Calcium Level 9.2 mg/dl (8.5-10.1) Total Bilirubin 0.3 mg/dl (0.2-1) Direct Bilirubin < 0.1 mg/dl (0-0.2) Aspartate Amino Transf (AST/SGOT) 14 U/L (15-37) Alanine Aminotransferase (ALT/SGPT) 20 U/L (12-78) Alkaline Phosphatase 88 U/L (45-117) Total Creatine Kinase 122 U/L (39-308) Creatine Kinase MB 0.5 ng/ml (0.5-3.6) Creatine Kinase MB Ratio 0.4 (0-3.0) Troponin I < 0.015 ng/ml (0-0.045) Total Protein 6.6 gm/dl (6.4-8.2) Albumin 3.1 gm/dl (3.4-5.0) Lipase 134 U/L (73-393) Salicylates Level < 1.7 mg/dl (2.8-20) Acetaminophen Level < 2 ug/ml (10-30) Ethyl Alcohol mg/dL < 3.0 mg/dl (0-3) Fasting Glucose 99 mg/dl (70-99) Triglycerides Level 95 mg/dl (0-150) Cholesterol Level 171 mg/dl (0-200) HDL Cholesterol 41 mg/dl LDL Cholesterol, Calculated 111 mg/dl VLDL Cholesterol, Calculated 19 mg/dl Cholesterol/HDL Ratio 4.2 Thyroid Stimulating Hormone (TSH) 2.240 uIu/ml (0.300-4.500) Date/Time Source Procedure Growth Status 10/05/16 17:25 Nasal MRSA DNA Surveillance Screen - Final Specimen Negative for MRSA by DNA Probe Complete 10/07/16 09:35 Ulcer Leg Right Lower Gram Stain - Final Resulted 10/07/16 09:35 Ulcer Leg Right Lower Wound Culture Pending Resulted Problem Qualifiers (1) Depression: Depression Type: major depressive disorder Active/Remission status: currently active Major depression episode severity: severe Psychotic features : without psychotic features (2) Diabetes: Diabetes mellitus type: type 2 Diabetes mellitus complication status: without complication Diabetes mellitus penitentiary insulin use: without penitentiary use Qualified Codes: E11.9 - Type 2 diabetes mellitus without complications
[2016-10-08 14:28] LABS: COD UR NEGATIVE NG/ML (CUTOFF=50); HYDROCOD UR NEGATIVE NG/ML (CUTOFF=50); HYDROMOR UR NEGATIVE NG/ML (CUTOFF=50); MORPHINE UR NEGATIVE NG/ML (CUTOFF=50); NORHYDROCODONE CONF UR NEGATIVE NG/ML (CUTOFF=50); OXYMORPH UR 1510 NG/ML (CUTOFF=50)
[2016-10-08] MEDS ORDERED: TRAZODONE HCL 50 MG TAB PO SCH (22:00)
[2016-10-08] MEDS: CYCLOBENZAPRINE HCL 10 MG TAB PO PRN (22:04)
[2016-10-08] MEDS: TOPIRAMATE 100 MG TAB PO SCH (22:05)
[2016-10-09] MEDS: LORAZEPAM 1 MG TAB PO PRN ×2 (00:06→12:44)
[2016-10-09] MEDS: MoRPHine SULFATE IR 15 MG TAB (IMMEDIATE RELEASE) PO SCH ×3 (06:18→21:13)
[2016-10-09 07:01] VITALS: BP_SYST 115; BP_SYST 120; BP_DIAS 73; BP_DIAS 78; PULSE 80; PULSE 89; TEMP 36.4
[2016-10-09] MEDS: NICOTINE 21 MG/24 HR TDSY EXT SCH (09:00)
[2016-10-09] MEDS: FINASTERIDE 5 MG TAB PO SCH (09:01)
[2016-10-09] MEDS: DULOXETINE HCL 60 MG CAP PO SCH (09:01)
[2016-10-09] MEDS: PANTOprazole SOD 40 MG TAB PO SCH (09:01)
[2016-10-09] MEDS: QUETIAPINE FUMARATE 25 MG TAB PO SCH ×2 (09:01→21:12)
[2016-10-09] MEDS: GABAPENTIN 600 MG TAB PO SCH ×3 (09:01→21:12)
[2016-10-09] MEDS: OXYCODONE HCL IR 5 MG TAB (IMMEDIATE RELEASE) PO PRN ×3 (09:07→21:16)
--- NOTE | 2016-10-09 12:58 | Psychiatric Progress Notes ---
Progress Note Date of Service Oct 09, 2016. Interval History Satnton Milner is a 46-year-old male from [place], [place], who was admitted to our unit on a 201 voluntary commitment with severe depression, suicidality and anxiety. Information is gathered from the patient, the electronic medical record, and the [place] prescription drug monitoring program. Chief Complaint "Not very good.". Subjective Patient was seen & assessed interval progress reviewed with Treatment Team. The patient says that he is not doing well. He feels "terrified of dying" and continues to report panic attacks occurring both at night and during the day. He says that he puts up "a facade" here by laughing and joking with peers, but inside remains depressed with SI. He asks me to agree not to send him home too soon, feeling that the last 2 times we sent him home before he was ready. "If I 'm still suicidal, you won't send me home, right?". He says that he doesn't like himself very much and doesn't know how to change that. He says at home he is people avoidant, finding ways to get out of family events, and even waits to go to the grocery store until after midnight. He says that he "slept hard" last night, but has felt hung over all day today and is requesting a dosage reduction to trazodone. Nursing reports that he has been loud, laughing, joking and commanding attention for himself in groups and casual time. Review of Systems Constitutional: + fatigue ENT: No dental problems, No hearing loss, No nasal symptoms, No problem reported, No sore throat, No tinnitus, No trouble swallowing, No unusual epistaxis Respiratory: No cough, No dyspnea at rest, No dyspnea on exertion, No hemoptysis, No problem reported, No shortness of breath, No sputum, No wheezing Cardiovascular: No PND, No chest pain, No claudication, No edema, No orthopnea , No palpitations, No problem reported Abdomen: No GI bleeding, No constipation, No diarrhea, No nausea, No pain, No problem reported, No vomiting Musculoskeletal: + problem reported (back pain and requesting more frequent pain meds) Neurologic: No balance problems, No memory loss, No numbness/tingling, No paralysis, No problem reported, No vertigo, No weakness Psychiatric: + anxiety, + depression symptoms (with SI) Sleep Information Total Hours of Sleep: 5.75 Meal Information Percent of Breakfast Consumed: 100 Percent of Lunch Consumed: 100 Percent of Dinner Consumed: 100 Mental Status Exam During interview pt is: alert and oriented, cooperative Appearance: appropriately dressed, disheveled Eye contact is: poor Motor behavior is: steady gait & station, no abnormal motor movements Speech: normal in rate, rhythm & volume Affect: depressed Mood is: depressed Thought process: goal directed Thought content: reality based without delusions Suicidal thought are: present, Plan: denied, Intent: denied Homicidal thoughts are: denied Hallucinations: denies auditory, denies visual Cognition: memory grossly intact, attention grossly intact, language grossly intact Intelligence estimated to be: average Insight: impaired Judgement: impaired Summary of Past History : A 46-year-old gentleman admitted voluntarily for treatment of depression and anxiety. He reports this has been increasing and claims not understand why, although in the same breath, he says he is being evicted from his home. Our goal will be to appropriately treat his pain, which will include confirming his outpatient prescriptions and providers. We are certainly concerned by what we see in the [place] prescription drug monitoring program and we will make sure that we are coordinating with his other outpatient providers. We will establish a family meeting with his fiancee Priya as soon as possible. He has signed 2 contracts; one is a behavioral contract, requiring that he attend programming, participate positively in his treatment, etc. This second is a contract established by risk management here at the hospital, which includes the fact that he should not ambulate without assistance in view of history of frequent falls. So far, the patient is resistant to abiding by the assisted ambulation contracts, saying that he does not need it. We will coordinate care with his outpatient psychiatrist. He says that he has been on higher doses of Cymbalta in the past and does not remember that it was helpful in any way. He has never had an augmentation strategy with Abilify and is currently on low-dose Seroquel. We will further explore medication options, but at this time, will likely increase gabapentin to 600 mg t.i.d. to target chronic pain and anxiety/mood stabilization. At this time, the patient requires inpatient mental health treatment due to the severity of his condition and the risk for self-harm if discharged. DIAGNOSES: 1. Major depressive disorder, recurrent, severe, without psychotic features. 2. Narcissistic and antisocial personality disorder. 3. Opioid dependence. 4. Benzodiazepine dependence. 5. Obesity with a current BMI of 43.8. 6. Chronic pain, on chronic opioids. 7. Type 2 diabetes. 8. Benign prostatic hypertrophy. Impression The patient continues to report high anxiety and depression with SI, which is incongruent with objective observations of him laughing, joking and commanding attention. He clearly has an agenda to stay in the hospital beyond what we think will be profitable given his long standing personality disorders and manipulative behaviors. We will continue to evaluate daily for readiness. Will reduce trazodone to 125 mg in view of daytime hangover which we continue to help the patient learn healthy coping strategies for his stress. I have provided him with Panic Logs that he is to fill out this weekend in an attempt to identify patterns to his anxiety. Continued Inpatient Care The patient requires inpatient care due to the severity of his condition and the risk for self harm if discharged. Plan (1) Suicide gesture - safety checks - participate in groups - work on healthy coping skills and safety plan - family meeting with girlfriend to review safety concerns (2) Depression 10/06 - Continue Cymbalta 90 mg daily. - Encourage participation in group and individual counseling. According to the contractor, he has signed, he will participate in every group. - Obtain records from and coordinate care with current outpatient providers. - Recommend a therapist. 10/07 - Pt agreeable to therapy referral. 10/08 - Increase Cymbalta to 120 mg daily - Increase Trazodone to 150 mg. for sleep - Arrange family meeting 10/09 - FAmily meeting held yesterday with Estrella - Continue Cymbalta 120 mg. daily - Reduce Trazodone to 125 mg. due to AM hangover - Panic logs to identify pattern to his anxiety. (3) Anxiety 10/06 - Continue home dose of Ativan, being prescribed by Urgent [facility] in [place]. - Increase gabapentin to 600 mg t.i.d. 10/08 - Assist the patient to learn and utilize healthy coping strategies (4) Personality disorder Has both antisocial and narcissistic traits The patient has signed a behavioral contract that will guide his behavior here on the unit in view of his past behaviors, which were felt to be disruptive. Assist the patient to learn and utilize additional healthy coping strategies. As per the contract, encourage the patient to use his verbal skills to express his feelings rather than acting them out. 10/09 - Patient clearly wanting to be in the hospital longer than we feel is profittable. By all observations he is happy, laughing and joking with peers at all times and never demonstrates outward distress or anxiety. (5) Narcotic dependence Long history of abusing pain pills. Signed ERNESTO for current opiate and benzo prescriber, who is in [place]. [place] drug database shows he is filling controlled substance prescriptions from multiple prescribers across the state. Coordinate with all outpatient prescribers regarding his medications. Encourage daily physical activity as tolerated. (6) Obesity Encourage healthy diet and weight loss (7) Diabetes 10/06 - Diabetic diet. - Consult dietitian. 10/08 - Encourage exercise (8) BPH (benign prostatic hypertrophy) Continue home medications. Discharge / Aftercare Planning Primary Care Physician: Name: Dr Loredo Psychiatrist: Name: Dr Mata at [facility] Phone Number: Date of Appointment: Oct 15, 2016 Time of Appointment: 1:30 Therapist: Name: Antwan Pinzon at [facility] Phone Number: [phone] Date of Appointment: Dec 02, 2016 Time of Appointment: 10:00 Loom Fixer: Name: cachorro Visit Code E&M Code: 46595 Risk Factors Assessment Male: Yes : Yes /single/: No Higher / Fall in social status: No Health problems: Yes Mental Health Diagnoses: Yes Substance use disorders: Yes Previous attempt: No Previous psychiatric stay: Yes Hopelessness: No Smoker: Yes Protective Factors Assessment : No Responsible for young children: No Employed: No Stable relationships: Yes Supportive family: Yes Data Vital Signs Last 24 Hrs: Date Time Temp Pulse Resp B/P Pulse Ox O2 Delivery O2 Flow Rate FiO2 10/09/16 07:01 36.4 80 20 115/73 89 120/78 Meds Administered Last 24 Hrs: Meds Administered (Past 24Hrs) Medications (Trade) Dose Ordered Sig/Amalia Route Start Time Stop Time Status Last Admin Dose Admin Trazodone HCl (Desyrel Tab) 150 mg HS PO 10/08/16 22:00 11/07/16 21:59 10/08/16 22:04 150 MG Duloxetine HCl (Cymbalta Cap) 120 mg QAM PO 10/09/16 09:00 11/08/16 08:59 10/09/16 09:01 120 MG Lab Results Last 24 Hrs: 10/05/16 14:54 Red Blood Count 5.12, Mean Corpuscular Volume 82.0, Mean Corpuscular Hemoglobin 27.3, Mean Corpuscular Hemoglobin Concent 33.3, Mean Platelet Volume 10.6, Neutrophils (%) (Auto) 70.4, Lymphocytes (%) (Auto) 18.9, Monocytes (%) (Auto) 9.0, Eosinophils (%) (Auto) 1.1, Basophils (%) (Auto) 0.4, Neutrophils # (Auto) 7.46, Lymphocytes # (Auto) 2.00, Monocytes # (Auto) 0.95, Eosinophils # (Auto) 0.12, Basophils # (Auto) 0.04 10/05/16 14:54 Test 10/05/16 14:15 10/05/16 14:54 10/07/16 06:55 Urine Color YELLOW Urine Appearance CLEAR (CLEAR) Urine pH 6.5 (4.5-7.5) Urine Specific [place] 1.026 (1.000-1.030) Urine Protein NEG (NEG) Urine Glucose (UA) NEG (NEG) Urine Ketones NEG (NEG) Urine Occult Blood NEG (NEG) Urine Nitrite NEG (NEG) Urine Bilirubin NEG (NEG) Urine Urobilinogen NEG (NEG) Urine Leukocyte Esterase NEG (NEG) Urine Opiates Screen POS (NEG) Urine Codeine Confirmation (GC/MS) NEGATIVE NG/ML (CUTOFF=50) Urine Morphine Confirm (GC/MS) NEGATIVE NG/ML (CUTOFF=50) Urine Hydrocodone Confirm (GC/MS) NEGATIVE NG/ML (CUTOFF=50) Urine Norhydrocodone NEGATIVE NG/ML (CUTOFF=50) Urine Noroxycodone 4340 NG/ML (CUTOFF=50) Urine Oxycodone Confirm (GC/MS) 1140 NG/ML (CUTOFF=50) Urine Oxymorphone Confirm (GC/MS) 1510 NG/ML (CUTOFF=50) Urine Methadone, Qualitative NEG (NEG) Urine Hydromorphone Confirm (GC/MS) NEGATIVE NG/ML (CUTOFF=50) Urine Barbiturates NEG (NEG) Urine Phencyclidine (PCP) Level NEG (NEG) Ur Amphetamine/Methamphetamine NEG (NEG) Urine MDE-amphetamine (MDEA) negative ng/mL (<200) Ur Methylenedioxyamphetamine (MDA) negative ng/mL (<200) MDMA (Ecstasy) Screen POS (NEG) Methylenedioxymethamphetamine (MDMA negative ng/mL (<200) Urine Benzodiazepines Screen NEG (NEG) Urine Cocaine Metabolite NEG (NEG) Urine Marijuana (THC) NEG (NEG) White Blood Count 10.59 K/uL (4.8-10.8) Red Blood Count 5.12 M/uL (4.7-6.1) Hemoglobin 14.0 g/dL (14.0-18.0) Hematocrit 42.0 % (42-52) Mean Corpuscular Volume 82.0 fL (80-100) Mean Corpuscular Hemoglobin 27.3 pg (25-34) Mean Corpuscular Hemoglobin Concent 33.3 g/dl (32-36) Platelet Count 204 K/uL (130-400) Mean Platelet Volume 10.6 fL (7.4-10.4) Neutrophils (%) (Auto) 70.4 % Lymphocytes (%) (Auto) 18.9 % Monocytes (%) (Auto) 9.0 % Eosinophils (%) (Auto) 1.1 % Basophils (%) (Auto) 0.4 % Neutrophils # (Auto) 7.46 K/uL (1.4-6.5) Lymphocytes # (Auto) 2.00 K/uL (1.2-3.4) Monocytes # (Auto) 0.95 K/uL (0.11-0.59) Eosinophils # (Auto) 0.12 K/uL (0-0.5) Basophils # (Auto) 0.04 K/uL (0-0.2) RDW Standard Deviation 50.4 fL (36.4-46.3) RDW Coefficient of Variation 16.7 % (11.5-14.5) Immature Granulocyte % (Auto) 0.2 % Immature Granulocyte # (Auto) 0.02 K/uL (0.00-0.02) Prothrombin Time 10.7 SECONDS (9.0-12.0) Prothromb Time International Ratio 1.0 (0.9-1.1) Activated Partial Thromboplast Time 26.4 SECONDS (21.0-31.0) Partial Thromboplastin Ratio 1.0 Anion Gap 9.0 mmol/L (3-11) Est Creatinine Clear Calc Drug Dose 152.5 ml/min Estimated GFR () 118.3 Estimated GFR (Non- 102.1 BUN/Creatinine Ratio 13.7 (10-20) Osmolality 297 mOsm/kg (280-300) Calcium Level 9.2 mg/dl (8.5-10.1) Total Bilirubin 0.3 mg/dl (0.2-1) Direct Bilirubin < 0.1 mg/dl (0-0.2) Aspartate Amino Transf (AST/SGOT) 14 U/L (15-37) Alanine Aminotransferase (ALT/SGPT) 20 U/L (12-78) Alkaline Phosphatase 88 U/L (45-117) Total Creatine Kinase 122 U/L (39-308) Creatine Kinase MB 0.5 ng/ml (0.5-3.6) Creatine Kinase MB Ratio 0.4 (0-3.0) Troponin I < 0.015 ng/ml (0-0.045) Total Protein 6.6 gm/dl (6.4-8.2) Albumin 3.1 gm/dl (3.4-5.0) Lipase 134 U/L (73-393) Salicylates Level < 1.7 mg/dl (2.8-20) Acetaminophen Level < 2 ug/ml (10-30) Ethyl Alcohol mg/dL < 3.0 mg/dl (0-3) Fasting Glucose 99 mg/dl (70-99) Triglycerides Level 95 mg/dl (0-150) Cholesterol Level 171 mg/dl (0-200) HDL Cholesterol 41 mg/dl LDL Cholesterol, Calculated 111 mg/dl VLDL Cholesterol, Calculated 19 mg/dl Cholesterol/HDL Ratio 4.2 Thyroid Stimulating Hormone (TSH) 2.240 uIu/ml (0.300-4.500) Date/Time Source Procedure Growth Status 10/05/16 17:25 Nasal MRSA DNA Surveillance Screen - Final Specimen Negative for MRSA by DNA Probe Complete 10/07/16 09:35 Ulcer Leg Right Lower Gram Stain - Final Complete 10/07/16 09:35 Wound Culture - Final Corynebacterium Species Coag Neg Staphylococcus Gamma Strep Not Enterococcus Complete Problem Qualifiers (1) Depression: Depression Type: major depressive disorder Active/Remission status: currently active Major depression episode severity: severe Psychotic features : without psychotic features (2) Diabetes: Diabetes mellitus type: type 2 Diabetes mellitus complication status: without complication Diabetes mellitus long term care phlebotomist insulin use: without long term care phlebotomist use Qualified Codes: E11.9 - Type 2 diabetes mellitus without complications
[2016-10-09] MEDS: TOPIRAMATE 100 MG TAB PO SCH (21:12)
[2016-10-09] MEDS: TRAZODONE HCL 50 MG TAB PO SCH (21:12)
[2016-10-09] MEDS: MAGNESIUM HYDROXIDE SUSP 30 ML UDC PO PRN (21:14)
[2016-10-09] MEDS: CYCLOBENZAPRINE HCL 10 MG TAB PO PRN (21:17)
[2016-10-10] MEDS: LORAZEPAM 1 MG TAB PO PRN ×2 (00:01→23:47)
[2016-10-10] MEDS: MoRPHine SULFATE IR 15 MG TAB (IMMEDIATE RELEASE) PO SCH ×3 (06:24→21:26)
[2016-10-10 06:47] VITALS: BP_SYST 103; BP_SYST 120; BP_DIAS 64; BP_DIAS 77; PULSE 89; PULSE 93; TEMP 36.6
[2016-10-10] MEDS: NICOTINE 21 MG/24 HR TDSY EXT SCH (08:47)
[2016-10-10] MEDS: QUETIAPINE FUMARATE 25 MG TAB PO SCH ×2 (08:47→21:26)
[2016-10-10] MEDS: PANTOprazole SOD 40 MG TAB PO SCH (08:47)
[2016-10-10] MEDS: FINASTERIDE 5 MG TAB PO SCH (08:47)
[2016-10-10] MEDS: DULOXETINE HCL 60 MG CAP PO SCH (08:47)
[2016-10-10] MEDS: GABAPENTIN 600 MG TAB PO SCH ×3 (08:47→21:26)
[2016-10-10] MEDS: OXYCODONE HCL IR 5 MG TAB (IMMEDIATE RELEASE) PO PRN ×3 (08:57→21:26)
--- NOTE | 2016-10-10 10:00 | Psych Management Progress Note ---
Psychiatry Miscellaneous Date of Service: Oct 10, 2016. Patient seen, MS assessed. Rates mood as 3. Cooperative with care and treatment plan as outlined by PENSION ADMINISTRATOR. Willing to track his panic attacks. Somewhat attention seeking in group but able to verbalize feels that partner gave him an ultimatum about getting better as will tolerated "zero" further self harm at home for the safety of the grandchildren. Encouraged participation in therapeutic activities, plans to track his panic attacks.
[2016-10-10] MEDS: POLYETHYLENE (MIRALAX) 17 GM PACK PO PRN (10:01)
[2016-10-10] MEDS ORDERED: TAMSULOSIN HCL 0.4 MG CAP PO ONE (10:22)
--- NOTE | 2016-10-10 10:32 | Psychiatric Progress Notes ---
Progress Note Date of Service Oct 10, 2016. Interval History Stanton Milner is a 46-year-old male from [place], [place], who was admitted to our unit on a 201 voluntary commitment with severe depression, suicidality and anxiety. Information is gathered from the patient, the electronic medical record, and the [place] prescription drug monitoring program. Chief Complaint "I had a difficult talk with Estrella last night. ". Subjective Patient was seen & assessed interval progress reviewed with Treatment Team. The patient is upset today after talking with his girlfriend on the phone last night. She told him she will not let him move back in the house with them "unless I am better". Estrella was upset that he tried to hurt himself while the grandchildren were in the house (denies attempt was in front of them, and he was not responsible for their care) and does not want the children exposed to that again. He is upset, saying that he has been with her for 17 years, and doesn't know what he would do if they weren't together, and furthermore has no where to go if he can't return there. He says that the kids and grandkids have a new place to live, but have not for some reason moved. After this conversation, he says that his mood is worse, and with SI. Sleep was disturbed last night, waking multiple times with panic. He denies hangover today from trazodone and wants to continue this dose. Is saying that he has not been ordered his flomax here and is starting to have trouble initiating his stream. He continues to say that he is "happy when I'm around the others" because "no one wants to be around a sad sack". Staff continue to report that he is jovial and outgoing in the milieu without overt evidence of distress. Review of Systems Constitutional: + fatigue ENT: No dental problems, No hearing loss, No nasal symptoms, No problem reported, No sore throat, No tinnitus, No trouble swallowing, No unusual epistaxis Respiratory: No cough, No dyspnea at rest, No dyspnea on exertion, No hemoptysis, No problem reported, No shortness of breath, No sputum, No wheezing Cardiovascular: No PND, No chest pain, No claudication, No edema, No orthopnea , No palpitations, No problem reported Abdomen: + constipation (last BM 2 days ago) Musculoskeletal: + problem reported (back pain) Neurologic: No balance problems, No memory loss, No numbness/tingling, No paralysis, No problem reported, No vertigo, No weakness Psychiatric: + anxiety (with panic), + depression symptoms (with SI) Integumentary: + problem reported (rt shine open wound dressed with large bandaid) Sleep Information Total Hours of Sleep: 4.00 Meal Information Percent of Breakfast Consumed: 80 Percent of Lunch Consumed: 90 Percent of Dinner Consumed: 100 Mental Status Exam During interview pt is: alert and oriented, cooperative Appearance: appropriately dressed, disheveled Eye contact is: poor Motor behavior is: steady gait & station, no abnormal motor movements Speech: normal in rate, rhythm & volume Affect: depressed Mood is: depressed Thought process: goal directed Thought content: reality based without delusions Suicidal thought are: present, Plan: denied, Intent: denied Homicidal thoughts are: denied Hallucinations: denies auditory, denies visual Cognition: memory grossly intact, attention grossly intact, language grossly intact Intelligence estimated to be: average Insight: impaired Judgement: impaired Summary of Past History : A 46-year-old gentleman admitted voluntarily for treatment of depression and anxiety. He reports this has been increasing and claims not understand why, although in the same breath, he says he is being evicted from his home. Our goal will be to appropriately treat his pain, which will include confirming his outpatient prescriptions and providers. We are certainly concerned by what we see in the [place] prescription drug monitoring program and we will make sure that we are coordinating with his other outpatient providers. We will establish a family meeting with his fiheverePriya as soon as possible. He has signed 2 contracts; one is a behavioral contract, requiring that he attend programming, participate positively in his treatment, etc. This second is a contract established by risk management here at the hospital, which includes the fact that he should not ambulate without assistance in view of history of frequent falls. So far, the patient is resistant to abiding by the assisted ambulation contracts, saying that he does not need it. We will coordinate care with his outpatient psychiatrist. He says that he has been on higher doses of Cymbalta in the past and does not remember that it was helpful in any way. He has never had an augmentation strategy with Abilify and is currently on low-dose Seroquel. We will further explore medication options, but at this time, will likely increase gabapentin to 600 mg t.i.d. to target chronic pain and anxiety/mood stabilization. At this time, the patient requires inpatient mental health treatment due to the severity of his condition and the risk for self-harm if discharged. DIAGNOSES: 1. Major depressive disorder, recurrent, severe, without psychotic features. 2. Narcissistic and antisocial personality disorder. 3. Opioid dependence. 4. Benzodiazepine dependence. 5. Obesity with a current BMI of 43.8. 6. Chronic pain, on chronic opioids. 7. Type 2 diabetes. 8. Benign prostatic hypertrophy. Impression The patient continues to report high anxiety and depression with SI, which is incongruent with objective observations of him laughing, joking and commanding attention. He clearly has an agenda to stay in the hospital beyond what we think will be profitable given his long standing personality disorders and manipulative behaviors. Today he is saying that his girlfriend will not allow him to return to their home unless he is "better", and this will need to be further explored, as she said nothing about this during their family meeting this week. Will order Flomax 0.4 mg. daily that he says he was taking as an OP , and continue other meds. Continued Inpatient Care The patient requires inpatient care due to the severity of his condition and the risk for self harm if discharged. Plan (1) Suicide gesture - safety checks - participate in groups - work on healthy coping skills and safety plan - family meeting with girlfriend to review safety concerns (2) Depression 10/06 - Continue Cymbalta 90 mg daily. - Encourage participation in group and individual counseling. According to the contractor, he has signed, he will participate in every group. - Obtain records from and coordinate care with current outpatient providers. - Recommend a therapist. 10/07 - Pt agreeable to therapy referral. 10/08 - Increase Cymbalta to 120 mg daily - Increase Trazodone to 150 mg. for sleep - Arrange family meeting 10/09 - FAmily meeting held yesterday with Estrella - Continue Cymbalta 120 mg. daily - Reduce Trazodone to 125 mg. due to AM hangover - Panic logs to identify pattern to his anxiety. (3) Anxiety 10/06 - Continue home dose of Ativan, being prescribed by Urgent [facility] in [place]. - Increase gabapentin to 600 mg t.i.d. 10/08 - Assist the patient to learn and utilize healthy coping strategies (4) Personality disorder Has both antisocial and narcissistic traits The patient has signed a behavioral contract that will guide his behavior here on the unit in view of his past behaviors, which were felt to be disruptive. Assist the patient to learn and utilize additional healthy coping strategies. As per the contract, encourage the patient to use his verbal skills to express his feelings rather than acting them out. 10/09 - Patient clearly wanting to be in the hospital longer than we feel is profittable. By all observations he is happy, laughing and joking with peers at all times and never demonstrates outward distress or anxiety. (5) Narcotic dependence Long history of abusing pain pills. Signed ERNESTO for current opiate and benzo prescriber, who is in [place]. [place] drug database shows he is filling controlled substance prescriptions from multiple prescribers across the state. Coordinate with all outpatient prescribers regarding his medications. Encourage daily physical activity as tolerated. (6) Obesity Encourage healthy diet and weight loss (7) Diabetes 10/06 - Diabetic diet. - Consult dietitian. 10/08 - Encourage exercise (8) BPH (benign prostatic hypertrophy) Continue home medications. Discharge / Aftercare Planning Primary Care Physician: Name: Dr Loredo Psychiatrist: Name: Dr Mata at [facility] Phone Number: Date of Appointment: Oct 15, 2016 Time of Appointment: 1:30 Therapist: Name: Suzan Tovar at [facility] Phone Number: [phone] Date of Appointment: Oct 28, 2016 Time of Appointment: 11am Multifocal Lens Inspector: Name: [facility] Visit Code E&M Code: 22535 Risk Factors Assessment Male: Yes : Yes /single/: No Higher / Fall in social status: No Health problems: Yes Mental Health Diagnoses: Yes Substance use disorders: Yes Previous attempt: No Previous psychiatric stay: Yes Hopelessness: No Smoker: Yes Protective Factors Assessment : No Responsible for young children: No Employed: No Stable relationships: Yes Supportive family: Yes Data Vital Signs Last 24 Hrs: Date Time Temp Pulse Resp B/P Pulse Ox O2 Delivery O2 Flow Rate FiO2 10/10/16 06:47 36.6 89 16 120/77 93 103/64 Meds Administered Last 24 Hrs: Meds Administered (Past 24Hrs) Medications (Trade) Dose Ordered Sig/Amalia Route Start Time Stop Time Status Last Admin Dose Admin Trazodone HCl (Desyrel Tab) 150 mg HS PO 10/08/16 22:00 10/09/16 12:59 DC 10/08/16 22:04 150 MG Duloxetine HCl (Cymbalta Cap) 120 mg QAM PO 10/09/16 09:00 11/08/16 08:59 10/10/16 08:47 120 MG Trazodone HCl (Desyrel Tab) 125 mg HS PO 10/09/16 22:00 11/08/16 21:59 10/09/16 21:12 125 MG Lab Results Last 24 Hrs: 10/05/16 14:54 Red Blood Count 5.12, Mean Corpuscular Volume 82.0, Mean Corpuscular Hemoglobin 27.3, Mean Corpuscular Hemoglobin Concent 33.3, Mean Platelet Volume 10.6, Neutrophils (%) (Auto) 70.4, Lymphocytes (%) (Auto) 18.9, Monocytes (%) (Auto) 9.0, Eosinophils (%) (Auto) 1.1, Basophils (%) (Auto) 0.4, Neutrophils # (Auto) 7.46, Lymphocytes # (Auto) 2.00, Monocytes # (Auto) 0.95, Eosinophils # (Auto) 0.12, Basophils # (Auto) 0.04 10/05/16 14:54 Test 10/05/16 14:15 10/05/16 14:54 10/07/16 06:55 Urine Color YELLOW Urine Appearance CLEAR (CLEAR) Urine pH 6.5 (4.5-7.5) Urine Specific [place] 1.026 (1.000-1.030) Urine Protein NEG (NEG) Urine Glucose (UA) NEG (NEG) Urine Ketones NEG (NEG) Urine Occult Blood NEG (NEG) Urine Nitrite NEG (NEG) Urine Bilirubin NEG (NEG) Urine Urobilinogen NEG (NEG) Urine Leukocyte Esterase NEG (NEG) Urine Opiates Screen POS (NEG) Urine Codeine Confirmation (GC/MS) NEGATIVE NG/ML (CUTOFF=50) Urine Morphine Confirm (GC/MS) NEGATIVE NG/ML (CUTOFF=50) Urine Hydrocodone Confirm (GC/MS) NEGATIVE NG/ML (CUTOFF=50) Urine Norhydrocodone NEGATIVE NG/ML (CUTOFF=50) Urine Noroxycodone 4340 NG/ML (CUTOFF=50) Urine Oxycodone Confirm (GC/MS) 1140 NG/ML (CUTOFF=50) Urine Oxymorphone Confirm (GC/MS) 1510 NG/ML (CUTOFF=50) Urine Methadone, Qualitative NEG (NEG) Urine Hydromorphone Confirm (GC/MS) NEGATIVE NG/ML (CUTOFF=50) Urine Barbiturates NEG (NEG) Urine Phencyclidine (PCP) Level NEG (NEG) Ur Amphetamine/Methamphetamine NEG (NEG) Urine MDE-amphetamine (MDEA) negative ng/mL (<200) Ur Methylenedioxyamphetamine (MDA) negative ng/mL (<200) MDMA (Ecstasy) Screen POS (NEG) Methylenedioxymethamphetamine (MDMA negative ng/mL (<200) Urine Benzodiazepines Screen NEG (NEG) Urine Cocaine Metabolite NEG (NEG) Urine Marijuana (THC) NEG (NEG) White Blood Count 10.59 K/uL (4.8-10.8) Red Blood Count 5.12 M/uL (4.7-6.1) Hemoglobin 14.0 g/dL (14.0-18.0) Hematocrit 42.0 % (42-52) Mean Corpuscular Volume 82.0 fL (80-100) Mean Corpuscular Hemoglobin 27.3 pg (25-34) Mean Corpuscular Hemoglobin Concent 33.3 g/dl (32-36) Platelet Count 204 K/uL (130-400) Mean Platelet Volume 10.6 fL (7.4-10.4) Neutrophils (%) (Auto) 70.4 % Lymphocytes (%) (Auto) 18.9 % Monocytes (%) (Auto) 9.0 % Eosinophils (%) (Auto) 1.1 % Basophils (%) (Auto) 0.4 % Neutrophils # (Auto) 7.46 K/uL (1.4-6.5) Lymphocytes # (Auto) 2.00 K/uL (1.2-3.4) Monocytes # (Auto) 0.95 K/uL (0.11-0.59) Eosinophils # (Auto) 0.12 K/uL (0-0.5) Basophils # (Auto) 0.04 K/uL (0-0.2) RDW Standard Deviation 50.4 fL (36.4-46.3) RDW Coefficient of Variation 16.7 % (11.5-14.5) Immature Granulocyte % (Auto) 0.2 % Immature Granulocyte # (Auto) 0.02 K/uL (0.00-0.02) Prothrombin Time 10.7 SECONDS (9.0-12.0) Prothromb Time International Ratio 1.0 (0.9-1.1) Activated Partial Thromboplast Time 26.4 SECONDS (21.0-31.0) Partial Thromboplastin Ratio 1.0 Anion Gap 9.0 mmol/L (3-11) Est Creatinine Clear Calc Drug Dose 152.5 ml/min Estimated GFR () 118.3 Estimated GFR (Non- 102.1 BUN/Creatinine Ratio 13.7 (10-20) Osmolality 297 mOsm/kg (280-300) Calcium Level 9.2 mg/dl (8.5-10.1) Total Bilirubin 0.3 mg/dl (0.2-1) Direct Bilirubin < 0.1 mg/dl (0-0.2) Aspartate Amino Transf (AST/SGOT) 14 U/L (15-37) Alanine Aminotransferase (ALT/SGPT) 20 U/L (12-78) Alkaline Phosphatase 88 U/L (45-117) Total Creatine Kinase 122 U/L (39-308) Creatine Kinase MB 0.5 ng/ml (0.5-3.6) Creatine Kinase MB Ratio 0.4 (0-3.0) Troponin I < 0.015 ng/ml (0-0.045) Total Protein 6.6 gm/dl (6.4-8.2) Albumin 3.1 gm/dl (3.4-5.0) Lipase 134 U/L (73-393) Salicylates Level < 1.7 mg/dl (2.8-20) Acetaminophen Level < 2 ug/ml (10-30) Ethyl Alcohol mg/dL < 3.0 mg/dl (0-3) Fasting Glucose 99 mg/dl (70-99) Triglycerides Level 95 mg/dl (0-150) Cholesterol Level 171 mg/dl (0-200) HDL Cholesterol 41 mg/dl LDL Cholesterol, Calculated 111 mg/dl VLDL Cholesterol, Calculated 19 mg/dl Cholesterol/HDL Ratio 4.2 Thyroid Stimulating Hormone (TSH) 2.240 uIu/ml (0.300-4.500) Date/Time Source Procedure Growth Status 10/05/16 17:25 Nasal MRSA DNA Surveillance Screen - Final Specimen Negative for MRSA by DNA Probe Complete 10/07/16 09:35 Ulcer Leg Right Lower Gram Stain - Final Complete 10/07/16 09:35 Wound Culture - Final Corynebacterium Species Coag Neg Staphylococcus Gamma Strep Not Enterococcus Complete Problem Qualifiers (1) Depression: Depression Type: major depressive disorder Active/Remission status: currently active Major depression episode severity: severe Psychotic features : without psychotic features (2) Diabetes: Diabetes mellitus type: type 2 Diabetes mellitus complication status: without complication Diabetes mellitus longterm insulin use: without longterm use Qualified Codes: E11.9 - Type 2 diabetes mellitus without complications
[2016-10-10] MEDS ORDERED: POLYETHYLENE (MIRALAX) 17 GM PACK PO PRN (10:45)
[2016-10-10] MEDS: MAGNESIUM HYDROXIDE SUSP 30 ML UDC PO PRN (16:16)
[2016-10-10] MEDS ORDERED: NURSING VERBAL MED ORDER ONE (16:30)
[2016-10-10] MEDS: TRAZODONE HCL 50 MG TAB PO SCH (21:25)
[2016-10-10] MEDS: TOPIRAMATE 100 MG TAB PO SCH (21:26)
[2016-10-10] MEDS: DOCUSATE SODIUM 100 MG CAP PO SCH (21:26)
[2016-10-10] MEDS: CYCLOBENZAPRINE HCL 10 MG TAB PO PRN (23:47)
[2016-10-11] MEDS: MoRPHine SULFATE IR 15 MG TAB (IMMEDIATE RELEASE) PO SCH ×3 (05:24→22:05)
[2016-10-11 06:46] VITALS: BP 105/70; PULSE 71; PULSE 82; TEMP 36.4
[2016-10-11] MEDS: OXYCODONE HCL IR 5 MG TAB (IMMEDIATE RELEASE) PO PRN ×3 (08:51→21:02)
[2016-10-11] MEDS: TAMSULOSIN HCL 0.4 MG CAP PO SCH (09:18)
[2016-10-11] MEDS: NICOTINE 21 MG/24 HR TDSY EXT SCH (09:18)
[2016-10-11] MEDS: DULOXETINE HCL 60 MG CAP PO SCH (09:18)
[2016-10-11] MEDS: DOCUSATE SODIUM 100 MG CAP PO SCH ×2 (09:18→21:31)
[2016-10-11] MEDS: GABAPENTIN 600 MG TAB PO SCH ×3 (09:19→21:32)
[2016-10-11] MEDS: QUETIAPINE FUMARATE 25 MG TAB PO SCH ×2 (09:19→21:33)
[2016-10-11] MEDS: FINASTERIDE 5 MG TAB PO SCH (09:19)
[2016-10-11] MEDS: PANTOprazole SOD 40 MG TAB PO SCH (09:19)
[2016-10-11] MEDS: LORAZEPAM 1 MG TAB PO PRN ×2 (10:38→18:09)
--- NOTE | 2016-10-11 11:25 | Psychiatric Progress Notes ---
Progress Note Date of Service Oct 11, 2016. Interval History Stanton Milner is a 46-year-old male from [place], [place], who was admitted to our unit on a 201 voluntary commitment with severe depression, suicidality and anxiety. Information is gathered from the patient, the electronic medical record, and the [place] prescription drug monitoring program. Chief Complaint "I'm really down on myself.". Subjective Patient was seen & assessed interval progress reviewed with nursing. The patient says that he visited with Estrella last night, and she says that she wants him to be better, and not suicidal when he returns home. he rates his mood today /10 "but I really don't even think its that high". He is very dramatic as he says that he still has SI and doesn't know what to do about it. Also reports having panic attacks at night and during the day, having already taken ativan today. Staff report that he did not work on the panic log given to him yesterday despite multiple reminders and explanations. Today he says that he didn't know how to use it so it was explained again. Staff continue to describe that he is laughing, joking and very social with peers, without evidence of distress until he talks individually with a staff. He has also been noted to be manipulative in attempts to get meds given early. He also told his peers that he was on the toilet for 2 hours the night before, where he fell asleep sitting up and no one checked on him. He was reminded by staff that he is checked on every 15 min, and was on the toilet on only one check. He appeared to be trying to get sympathy from his peer group. He is not abiding by the hospital contract that he ring for assistance when up. Review of Systems Constitutional: No chills, No fatigue, No fever, No problem reported, No sweats , No weakness, No weight loss ENT: No dental problems, No hearing loss, No nasal symptoms, No problem reported, No sore throat, No tinnitus, No trouble swallowing, No unusual epistaxis Respiratory: No cough, No dyspnea at rest, No dyspnea on exertion, No hemoptysis, No problem reported, No shortness of breath, No sputum, No wheezing Cardiovascular: No PND, No chest pain, No claudication, No edema, No orthopnea , No palpitations, No problem reported Abdomen: + problem reported (moved bowels 10/10) Musculoskeletal: No calf pain, No joint pain, No muscle pain, No problem reported, No swelling Neurologic: No balance problems, No memory loss, No numbness/tingling, No paralysis, No problem reported, No vertigo, No weakness Psychiatric: + anxiety, + depression symptoms, + insomnia Integumentary: No bleeding, No color change, No itch, No new/changing skin lesions, No problem reported, No rash Sleep Information Total Hours of Sleep: 5.00 Meal Information Percent of Breakfast Consumed: 80 Percent of Lunch Consumed: 90 Percent of Dinner Consumed: 100 Mental Status Exam During interview pt is: alert and oriented, cooperative Appearance: appropriately dressed, disheveled Eye contact is: poor Motor behavior is: steady gait & station, no abnormal motor movements Speech: normal in rate, rhythm & volume Affect: depressed Mood is: depressed Thought process: goal directed Thought content: reality based without delusions Suicidal thought are: present, Plan: denied, Intent: denied Homicidal thoughts are: denied Hallucinations: denies auditory, denies visual Cognition: memory grossly intact, attention grossly intact, language grossly intact Intelligence estimated to be: average Insight: impaired Judgement: impaired Summary of Past History : A 46-year-old gentleman admitted voluntarily for treatment of depression and anxiety. He reports this has been increasing and claims not understand why, although in the same breath, he says he is being evicted from his home. Our goal will be to appropriately treat his pain, which will include confirming his outpatient prescriptions and providers. We are certainly concerned by what we see in the [place] prescription drug monitoring program and we will make sure that we are coordinating with his other outpatient providers. We will establish a family meeting with his sandraePriya as soon as possible. He has signed 2 contracts; one is a behavioral contract, requiring that he attend programming, participate positively in his treatment, etc. This second is a contract established by risk management here at the hospital, which includes the fact that he should not ambulate without assistance in view of history of frequent falls. So far, the patient is resistant to abiding by the assisted ambulation contracts, saying that he does not need it. We will coordinate care with his outpatient psychiatrist. He says that he has been on higher doses of Cymbalta in the past and does not remember that it was helpful in any way. He has never had an augmentation strategy with Abilify and is currently on low-dose Seroquel. We will further explore medication options, but at this time, will likely increase gabapentin to 600 mg t.i.d. to target chronic pain and anxiety/mood stabilization. At this time, the patient requires inpatient mental health treatment due to the severity of his condition and the risk for self-harm if discharged. DIAGNOSES: 1. Major depressive disorder, recurrent, severe, without psychotic features. 2. Narcissistic and antisocial personality disorder. 3. Opioid dependence. 4. Benzodiazepine dependence. 5. Obesity with a current BMI of 43.8. 6. Chronic pain, on chronic opioids. 7. Type 2 diabetes. 8. Benign prostatic hypertrophy. Impression The patient continues to report depression and anxiety, but his presentation is of one who is happy and jovial. He laughs loudly, and was noted to be singing in the halls as he walked. With the patients personality disorders it is clear that he is enjoying the company and audience of the other patients, and is then melodramatic in presenting his symptoms to the providers, in an effort to remain in the hospital. I am concerned that his problems are long standing and are not amenable to inpatient treatment, and may even make them worse. He is saying that his GF Estrella will not let him move back into their home "until I'm better" and so will try to arrange another phone meeting to discus that his problems are not likely going to be resolved by time of discharge, and will require senior care therapy. Continue current meds. Will encourage staff to administer meds consistently so that he does not try to split the staff. Continued Inpatient Care The patient requires inpatient care due to the severity of his condition and the risk for self harm if discharged. Plan (1) Suicide gesture - safety checks - participate in groups - work on healthy coping skills and safety plan - family meeting with girlfriend to review safety concerns (2) Depression 10/06 - Continue Cymbalta 90 mg daily. - Encourage participation in group and individual counseling. According to the contractor, he has signed, he will participate in every group. - Obtain records from and coordinate care with current outpatient providers. - Recommend a therapist. 10/07 - Pt agreeable to therapy referral. 10/08 - Increase Cymbalta to 120 mg daily - Increase Trazodone to 150 mg. for sleep - Arrange family meeting 10/09 - FAmily meeting held yesterday with Estrella - Continue Cymbalta 120 mg. daily - Reduce Trazodone to 125 mg. due to AM hangover - Panic logs to identify pattern to his anxiety. 10/11 - Arrange another family meeting with Estrella (3) Anxiety 10/06 - Continue home dose of Ativan, being prescribed by Urgent [facility] in [place]. - Increase gabapentin to 600 mg t.i.d. 10/08 - Assist the patient to learn and utilize healthy coping strategies (4) Personality disorder Has both antisocial and narcissistic traits The patient has signed a behavioral contract that will guide his behavior here on the unit in view of his past behaviors, which were felt to be disruptive. Assist the patient to learn and utilize additional healthy coping strategies. As per the contract, encourage the patient to use his verbal skills to express his feelings rather than acting them out. 10/09 - Patient clearly wanting to be in the hospital longer than we feel is profittable. By all observations he is happy, laughing and joking with peers at all times and never demonstrates outward distress or anxiety. (5) Narcotic dependence Long history of abusing pain pills. Signed ERNESTO for current opiate and benzo prescriber, who is in [place]. [place] drug database shows he is filling controlled substance prescriptions from multiple prescribers across the state. Coordinate with all outpatient prescribers regarding his medications. Encourage daily physical activity as tolerated. (6) Obesity Encourage healthy diet and weight loss (7) Diabetes 10/06 - Diabetic diet. - Consult dietitian. 10/08 - Encourage exercise (8) BPH (benign prostatic hypertrophy) Continue home medications. Discharge / Aftercare Planning Primary Care Physician: Name: Dr Loredo Psychiatrist: Name: Dr Mata at [facility] Phone Number: Date of Appointment: Oct 15, 2016 Time of Appointment: 1:30 Therapist: Name: Suzan Tovar at [facility] Phone Number: [phone] Date of Appointment: Oct 28, 2016 Time of Appointment: 11am Chief Librarian Extension Department: Name: [facility] [address] Risk Factors Assessment Male: Yes : Yes /single/: No Higher / Fall in social status: No Health problems: Yes Mental Health Diagnoses: Yes Substance use disorders: Yes Previous attempt: No Previous psychiatric stay: Yes Hopelessness: No Smoker: Yes Protective Factors Assessment : No Responsible for young children: No Employed: No Stable relationships: Yes Supportive family: Yes Data Vital Signs Last 24 Hrs: Date Time Temp Pulse Resp B/P Pulse Ox O2 Delivery O2 Flow Rate FiO2 10/11/16 06:46 36.4 71 16 105/70 82 105/70 Meds Administered Last 24 Hrs: Meds Administered (Past 24Hrs) Medications (Trade) Dose Ordered Sig/Amalia Route Start Time Stop Time Status Last Admin Dose Admin Trazodone HCl (Desyrel Tab) 125 mg HS PO 10/09/16 22:00 11/08/16 21:59 10/10/16 21:25 125 MG Tamsulosin HCl (Flomax Cap) 0.4 mg QAM PO 10/11/16 09:00 11/10/16 08:59 10/11/16 09:18 0.4 MG Tamsulosin HCl (Flomax Cap) 0.4 mg 1022 ONCE PO 10/10/16 10:22 10/10/16 10:26 DC 10/10/16 10:56 0.4 MG Docusate Sodium (coLACE CAP) 100 mg BID PO 10/10/16 22:00 11/09/16 21:59 10/11/16 09:18 100 MG Lab Results Last 24 Hrs: 10/05/16 14:54 Red Blood Count 5.12, Mean Corpuscular Volume 82.0, Mean Corpuscular Hemoglobin 27.3, Mean Corpuscular Hemoglobin Concent 33.3, Mean Platelet Volume 10.6, Neutrophils (%) (Auto) 70.4, Lymphocytes (%) (Auto) 18.9, Monocytes (%) (Auto) 9.0, Eosinophils (%) (Auto) 1.1, Basophils (%) (Auto) 0.4, Neutrophils # (Auto) 7.46, Lymphocytes # (Auto) 2.00, Monocytes # (Auto) 0.95, Eosinophils # (Auto) 0.12, Basophils # (Auto) 0.04 10/05/16 14:54 Test 1/16/17 14:15 10/05/16 14:54 10/07/16 06:55 Urine Color YELLOW Urine Appearance CLEAR (CLEAR) Urine pH 6.5 (4.5-7.5) Urine Specific Cameron 1.026 (1.000-1.030) Urine Protein NEG (NEG) Urine Glucose (UA) NEG (NEG) Urine Ketones NEG (NEG) Urine Occult Blood NEG (NEG) Urine Nitrite NEG (NEG) Urine Bilirubin NEG (NEG) Urine Urobilinogen NEG (NEG) Urine Leukocyte Esterase NEG (NEG) Urine Opiates Screen POS (NEG) Urine Codeine Confirmation (GC/MS) NEGATIVE NG/ML (CUTOFF=50) Urine Morphine Confirm (GC/MS) NEGATIVE NG/ML (CUTOFF=50) Urine Hydrocodone Confirm (GC/MS) NEGATIVE NG/ML (CUTOFF=50) Urine Norhydrocodone NEGATIVE NG/ML (CUTOFF=50) Urine Noroxycodone 4340 NG/ML (CUTOFF=50) Urine Oxycodone Confirm (GC/MS) 1140 NG/ML (CUTOFF=50) Urine Oxymorphone Confirm (GC/MS) 1510 NG/ML (CUTOFF=50) Urine Methadone, Qualitative NEG (NEG) Urine Hydromorphone Confirm (GC/MS) NEGATIVE NG/ML (CUTOFF=50) Urine Barbiturates NEG (NEG) Urine Phencyclidine (PCP) Level NEG (NEG) Ur Amphetamine/Methamphetamine NEG (NEG) Urine MDE-amphetamine (MDEA) negative ng/mL (<200) Ur Methylenedioxyamphetamine (MDA) negative ng/mL (<200) MDMA (Ecstasy) Screen POS (NEG) Methylenedioxymethamphetamine (MDMA negative ng/mL (<200) Urine Benzodiazepines Screen NEG (NEG) Urine Cocaine Metabolite NEG (NEG) Urine Marijuana (THC) NEG (NEG) White Blood Count 10.59 K/uL (4.8-10.8) Red Blood Count 5.12 M/uL (4.7-6.1) Hemoglobin 14.0 g/dL (14.0-18.0) Hematocrit 42.0 % (42-52) Mean Corpuscular Volume 82.0 fL (80-100) Mean Corpuscular Hemoglobin 27.3 pg (25-34) Mean Corpuscular Hemoglobin Concent 33.3 g/dl (32-36) Platelet Count 204 K/uL (130-400) Mean Platelet Volume 10.6 fL (7.4-10.4) Neutrophils (%) (Auto) 70.4 % Lymphocytes (%) (Auto) 18.9 % Monocytes (%) (Auto) 9.0 % Eosinophils (%) (Auto) 1.1 % Basophils (%) (Auto) 0.4 % Neutrophils # (Auto) 7.46 K/uL (1.4-6.5) Lymphocytes # (Auto) 2.00 K/uL (1.2-3.4) Monocytes # (Auto) 0.95 K/uL (0.11-0.59) Eosinophils # (Auto) 0.12 K/uL (0-0.5) Basophils # (Auto) 0.04 K/uL (0-0.2) RDW Standard Deviation 50.4 fL (36.4-46.3) RDW Coefficient of Variation 16.7 % (11.5-14.5) Immature Granulocyte % (Auto) 0.2 % Immature Granulocyte # (Auto) 0.02 K/uL (0.00-0.02) Prothrombin Time 10.7 SECONDS (9.0-12.0) Prothromb Time International Ratio 1.0 (0.9-1.1) Activated Partial Thromboplast Time 26.4 SECONDS (21.0-31.0) Partial Thromboplastin Ratio 1.0 Anion Gap 9.0 mmol/L (3-11) Est Creatinine Clear Calc Drug Dose 152.5 ml/min Estimated GFR () 118.3 Estimated GFR (Non- 102.1 BUN/Creatinine Ratio 13.7 (10-20) Osmolality 297 mOsm/kg (280-300) Calcium Level 9.2 mg/dl (8.5-10.1) Total Bilirubin 0.3 mg/dl (0.2-1) Direct Bilirubin < 0.1 mg/dl (0-0.2) Aspartate Amino Transf (AST/SGOT) 14 U/L (15-37) Alanine Aminotransferase (ALT/SGPT) 20 U/L (12-78) Alkaline Phosphatase 88 U/L (45-117) Total Creatine Kinase 122 U/L (39-308) Creatine Kinase MB 0.5 ng/ml (0.5-3.6) Creatine Kinase MB Ratio 0.4 (0-3.0) Troponin I < 0.015 ng/ml (0-0.045) Total Protein 6.6 gm/dl (6.4-8.2) Albumin 3.1 gm/dl (3.4-5.0) Lipase 134 U/L (73-393) Salicylates Level < 1.7 mg/dl (2.8-20) Acetaminophen Level < 2 ug/ml (10-30) Ethyl Alcohol mg/dL < 3.0 mg/dl (0-3) Fasting Glucose 99 mg/dl (70-99) Triglycerides Level 95 mg/dl (0-150) Cholesterol Level 171 mg/dl (0-200) HDL Cholesterol 41 mg/dl LDL Cholesterol, Calculated 111 mg/dl VLDL Cholesterol, Calculated 19 mg/dl Cholesterol/HDL Ratio 4.2 Thyroid Stimulating Hormone (TSH) 2.240 uIu/ml (0.300-4.500) Date/Time Source Procedure Growth Status 10/05/16 17:25 Nasal MRSA DNA Surveillance Screen - Final Specimen Negative for MRSA by DNA Probe Complete 10/07/16 09:35 Ulcer Leg Right Lower Gram Stain - Final Complete 10/07/16 09:35 Wound Culture - Final Corynebacterium Species Coag Neg Staphylococcus Gamma Strep Not Enterococcus Complete Problem Qualifiers (1) Depression: Depression Type: major depressive disorder Active/Remission status: currently active Major depression episode severity: severe Psychotic features : without psychotic features (2) Diabetes: Diabetes mellitus type: type 2 Diabetes mellitus complication status: without complication Diabetes mellitus superintendent terminal insulin use: without superintendent terminal use Qualified Codes: E11.9 - Type 2 diabetes mellitus without complications
[2016-10-11] MEDS: TRAZODONE HCL 50 MG TAB PO SCH (21:32)
[2016-10-11] MEDS: TOPIRAMATE 100 MG TAB PO SCH (21:33)
[2016-10-12] MEDS: LORAZEPAM 1 MG TAB PO PRN ×2 (00:14→12:15)
[2016-10-12] MEDS: CYCLOBENZAPRINE HCL 10 MG TAB PO PRN ×2 (00:14→22:20)
[2016-10-12] MEDS: OXYCODONE HCL IR 5 MG TAB (IMMEDIATE RELEASE) PO PRN ×3 (03:06→21:25)
[2016-10-12] MEDS: MoRPHine SULFATE IR 15 MG TAB (IMMEDIATE RELEASE) PO SCH ×3 (06:21→22:21)
[2016-10-12 06:44] VITALS: BP_SYST 108; BP_SYST 115; BP_DIAS 77; PULSE 88; PULSE 89; TEMP 36.9
[2016-10-12] MEDS: NICOTINE 21 MG/24 HR TDSY EXT SCH (09:13)
[2016-10-12] MEDS: DOCUSATE SODIUM 100 MG CAP PO SCH ×2 (09:13→22:15)
[2016-10-12] MEDS: DULOXETINE HCL 60 MG CAP PO SCH (09:16)
[2016-10-12] MEDS: FINASTERIDE 5 MG TAB PO SCH (09:16)
[2016-10-12] MEDS: GABAPENTIN 600 MG TAB PO SCH ×3 (09:16→22:18)
[2016-10-12] MEDS: TAMSULOSIN HCL 0.4 MG CAP PO SCH (09:16)
[2016-10-12] MEDS: QUETIAPINE FUMARATE 25 MG TAB PO SCH ×2 (09:17→22:19)
[2016-10-12] MEDS: PANTOprazole SOD 40 MG TAB PO SCH (09:17)
--- NOTE | 2016-10-12 10:11 | Psychiatric Progress Notes ---
Progress Note Date of Service Oct 12, 2016. Interval History Stanton Milner is a 46-year-old male from [place], [place], who was admitted to our unit on a 201 voluntary commitment with severe depression, suicidality and anxiety. Information is gathered from the patient, the electronic medical record, and the [place] prescription drug monitoring program. Chief Complaint "I've been better". Subjective Patient was seen & assessed interval progress reviewed with Treatment Team. Staff report he is not following his behavioral or fall contracts that he signed and agreed to abide by on admission. He was sexually inappropriate in group, making a collage with various inappropriate pictures and made lewd comments and gestures to female staff. He has been repeatedly noted to be bright and jovial with peers, laughing, singing and smiling, but when he talks with staff says he is very depressed. He has struggled to follow through on coping skills and assignments given to him to work on as part of his treatment plan. He was seen in his room today, where he was seated on his bed. He says his mood is "bad" because staff were not as attentive to him as he thinks they should have been. When redirected to look at what things he can do when he is feeling poorly, he says he did use his panic log and journaled. He continues to say that his girlfriend "won't let me come home until I'm better," and thinks that will be "not for a while, don't know if I'm ready." He says he continues to worry that he might do something to hurt himself if he has a panic attack, and again reviewed the concept of a safety plan and ongoing work on his coping skills. Also reviewed that he may not be 100% at the time of discharge, and that he will need to continue to work on these things as an outpatient, as they are chronic symptoms for him. Also gave positive feedback for progress he's made , including willingness to work with a therapist, which he has not done in the past. Also discussed expectations for appropriate behavior, not making sexual comments to staff or peers, and that he agreed to follow the behavioral contract , and is not honoring that. Initially he denied making sexual comments/gestures , then said "everyone else was doing it too, why do I get picked on?" He denied that staff had redirected him regarding his inappropriate behavior, although multiple staff have had to. Shortly after seeing him, was contacted by nursing staff who reported that he was caught cheeking his pain medications. He had lied to staff several times about the pills, repeatedly pretended to swallow them and had hidden them in his mouth 3 times. Again met with him and advised that this is a safety concern , that as he is again not following his treatment agreement and is not taking medications appropriately, the dose will be decreased, as I am concerned that if he has pills hidden and is taking them on his own, he is at risk for AMS and falls, which he has a significant history of during past hospitalizations. Sleep Information Total Hours of Sleep: 4.50 Meal Information Percent of Breakfast Consumed: 95 Percent of Lunch Consumed: 80 Percent of Dinner Consumed: 80 Mental Status Exam During interview pt is: alert and oriented Appearance: appropriately dressed Eye contact is: poor Motor behavior is: steady gait & station, no abnormal motor movements Speech: normal in rate, rhythm & volume Affect: depressed, other (restricted to depressed during interview, but observed eating breakfast with peers just prior, laughing and joking.) Mood is: depressed Thought process: goal directed Thought content: reality based without delusions Suicidal thought are: present ("I might do something if I have a panic attack") , Plan: denied, Intent: denied Homicidal thoughts are: denied Hallucinations: denies auditory, denies visual Cognition: memory grossly intact, attention grossly intact, language grossly intact Intelligence estimated to be: average Insight: impaired Judgement: impaired Summary of Past History 46-year-old gentleman admitted voluntarily for treatment of depression and anxiety. He reports this has been increasing and claims not understand why, although in the same breath, he says he is being evicted from his home. Our goal will be to appropriately treat his pain, which will include confirming his outpatient prescriptions and providers. We are certainly concerned by what we see in the [place] prescription drug monitoring program and we will make sure that we are coordinating with his other outpatient providers. We will establish a family meeting with his rosalindahevere Priya as soon as possible. Multiple medications have been increased at his request. He has signed 2 contracts; one is a behavioral contract, requiring that he attend programming, participate positively in his treatment, etc. This second is a contract established by risk management here at the hospital, which includes the fact that he should not ambulate without assistance in view of history of frequent falls. He has not been abiding by the assisted ambulation contract, saying that he does not need it, has been making sexually inappropriate comments/ gestures, and was caught cheeking opiate pain meds. He has been advised that he may be discharged if he is not complying with treatment, and a second meeting has been scheduled with his girlfriend whom he lives with to prepare for discharge. DIAGNOSES: 1. Major depressive disorder, recurrent, severe, without psychotic features. 2. Narcissistic and antisocial personality disorder. 3. Opioid dependence. 4. Benzodiazepine dependence. 5. Obesity with a current BMI of 43.8. 6. Chronic pain, on chronic opioids. 7. Type 2 diabetes. 8. Benign prostatic hypertrophy. 9. Suspect malingering (caught cheeking meds, not following treatment plans, med seeking) Impression The patient continues to report depression and anxiety, but his presentation is of one who is happy and jovial. He laughs loudly, and was noted to be singing in the halls as he walked. With the patients personality disorders it is clear that he is enjoying the company and audience of the other patients, and is then melodramatic in presenting his symptoms to the providers, in an effort to remain in the hospital. I am concerned that his problems are long standing and are not amenable to inpatient treatment, and may even make them worse. He is saying that his GF Estrella will not let him move back into their home "until I'm better" and so will try to arrange another phone meeting to discus that his problems are not likely going to be resolved by time of discharge, and will require long chain beamer therapy. Continue current meds. Will encourage staff to administer meds consistently so that he does not try to split the staff. Continued Inpatient Care The patient requires inpatient care due to the severity of his condition and the risk for self harm if discharged. Plan (1) Suicide gesture - safety checks - participate in groups - work on healthy coping skills and safety plan - family meeting with girlfriend to review safety concerns (2) Depression 10/06 - Continue Cymbalta 90 mg daily. - Encourage participation in group and individual counseling. According to the contractor, he has signed, he will participate in every group. - Obtain records from and coordinate care with current outpatient providers. - Recommend a therapist. 10/07 - Pt agreeable to therapy referral. 10/08 - Increase Cymbalta to 120 mg daily - Increase Trazodone to 150 mg. for sleep - Arrange family meeting 10/09 - Family meeting held yesterday with Estrella - Continue Cymbalta 120 mg. daily - Reduce Trazodone to 125 mg. due to AM hangover - Panic logs to identify pattern to his anxiety. 10/12 - Second family meeting with Estrella to review safety plan, coping skills he has been working on, and to proceed with discharge. (3) Anxiety 10/06 - Continue home dose of Ativan, being prescribed by Urgent Care in [place]. - Increase gabapentin to 600 mg t.i.d. 10/08 - Assist the patient to learn and utilize healthy coping strategies (4) Personality disorder Has both antisocial and narcissistic traits The patient has signed a behavioral contract that will guide his behavior here on the unit in view of his past behaviors, which were felt to be disruptive. Assist the patient to learn and utilize additional healthy coping strategies. As per the contract, encourage the patient to use his verbal skills to express his feelings rather than acting them out. 10/09 - Patient clearly wanting to be in the hospital longer than we feel is profittable. By all observations he is happy, laughing and joking with peers at all times and never demonstrates outward distress or anxiety. (5) Narcotic dependence Long history of abusing pain pills. Signed ERNESTO for current opiate and benzo prescriber, who is in [place]. [place] substance prescriptions from multiple prescribers across the state. Coordinate with all outpatient prescribers regarding his medications. Encourage daily physical activity as tolerated. 10/12 - patient caught cheeking Roxicodone, room searched, but no other pills found. Concerned that he has not been taking medications appropriately, may be saving them up or taking large quantities. To limit risk of this and try to maximize safety, advised him that the Roxicodone dose would be decreased (to q 12 hours). Staff to do mouth checks with each medication. Patient also advised that he is not following his behavioral contract, and that if he continues to refuse to do so, will be discharged. (6) Obesity Encourage healthy diet and weight loss (7) Diabetes 10/06 - Diabetic diet. - Consult dietitian. 10/08 - Encourage exercise (8) BPH (benign prostatic hypertrophy) Continue home medications. Discharge / Aftercare Planning Primary Care Physician: Name: Dr Loredo Psychiatrist: Name: Dr Mata at [facility] Phone Number: [phone] Date of Appointment: Oct 15, 2016 Time of Appointment: 1:30 Therapist: Name: Suzan Tovar at [facility] Phone Number: [phone] Date of Appointment: Oct 28, 2016 Time of Appointment: 11am Digital Advertising Analyst: Name: [facility] Visit Code E&M Code: 49595 Risk Factors Assessment Male: Yes : Yes /single/: No Higher / Fall in social status: No Health problems: Yes Mental Health Diagnoses: Yes Substance use disorders: Yes Previous attempt: No Previous psychiatric stay: Yes Hopelessness: No Smoker: Yes Protective Factors Assessment : No Responsible for young children: No Employed: No Stable relationships: Yes Supportive family: Yes Data Vital Signs Last 24 Hrs: Date Time Temp Pulse Resp B/P Pulse Ox O2 Delivery O2 Flow Rate FiO2 10/12/16 06:44 36.9 88 16 115/77 89 108/77 Meds Administered Last 24 Hrs: Meds Administered (Past 24Hrs) Medications (Trade) Dose Ordered Sig/Amalia Route Start Time Stop Time Status Last Admin Dose Admin Tamsulosin HCl (Flomax Cap) 0.4 mg QAM PO 10/11/16 09:00 11/10/16 08:59 10/12/16 09:16 0.4 MG Tamsulosin HCl (Flomax Cap) 0.4 mg 1022 ONCE PO 10/10/16 10:22 10/10/16 10:26 DC 10/10/16 10:56 0.4 MG Docusate Sodium (coLACE CAP) 100 mg BID PO 10/10/16 22:00 11/09/16 21:59 10/12/16 09:13 100 MG Problem Qualifiers (1) Depression: Depression Type: major depressive disorder Active/Remission status: currently active Major depression episode severity: severe Psychotic features : without psychotic features (2) Diabetes: Diabetes mellitus type: type 2 Diabetes mellitus complication status: without complication Diabetes mellitus long chain beamer insulin use: without longterm use Qualified Codes: E11.9 - Type 2 diabetes mellitus without complications
[2016-10-12] MEDS: TRAZODONE HCL 50 MG TAB PO SCH (22:17)
[2016-10-12] MEDS: TOPIRAMATE 100 MG TAB PO SCH (22:19)
[2016-10-13] MEDS: LORAZEPAM 1 MG TAB PO PRN (00:18)
[2016-10-13] MEDS: MoRPHine SULFATE IR 15 MG TAB (IMMEDIATE RELEASE) PO SCH ×3 (06:05→22:16)
[2016-10-13 06:50] VITALS: BP_SYST 101; BP_SYST 111; BP_DIAS 67; BP_DIAS 70; PULSE 81; PULSE 87; TEMP 36.4
[2016-10-13] MEDS: OXYCODONE HCL IR 5 MG TAB (IMMEDIATE RELEASE) PO PRN (09:14)
[2016-10-13] MEDS: DULOXETINE HCL 60 MG CAP PO SCH (09:22)
[2016-10-13] MEDS: NICOTINE 21 MG/24 HR TDSY EXT SCH (09:22)
[2016-10-13] MEDS: FINASTERIDE 5 MG TAB PO SCH (09:22)
[2016-10-13] MEDS: GABAPENTIN 600 MG TAB PO SCH ×3 (09:22→22:17)
[2016-10-13] MEDS: PANTOprazole SOD 40 MG TAB PO SCH (09:22)
[2016-10-13] MEDS: DOCUSATE SODIUM 100 MG CAP PO SCH ×2 (09:22→22:16)
[2016-10-13] MEDS: QUETIAPINE FUMARATE 25 MG TAB PO SCH ×2 (09:22→22:17)
[2016-10-13] MEDS: TAMSULOSIN HCL 0.4 MG CAP PO SCH (09:22)
--- NOTE | 2016-10-13 14:17 | Psychiatric Progress Notes ---
Progress Note Date of Service Oct 13, 2016. Interval History Stanton Milner is a 46-year-old male from [place], [place], who was admitted to our unit on a 201 voluntary commitment with severe depression, suicidality and anxiety. Information is gathered from the patient, the electronic medical record, and the [place] prescription drug monitoring program. Chief Complaint "I want to talk about my pain meds. ". Subjective Patient was seen & assessed interval progress reviewed with Treatment Team. The patient is upset and focused on his pain and pain meds. He is wanting his narcs scheduled and says that he was "sorry" for cheeking his meds the other day. He doesn't think that people here care about him, "I feel unimportant", and continues to say that his GF doesn't want him home if he is suicidal. He says "I don't understand this mental health stuff", and says that he is working hard on himself. He says that there is nowhere for him to go if he were discharged. He says that he doesn't want to , but makes conditional suicidal statements about being suicidal if he were discharged. when asked what he was doing to work on his issues he asked me what I meant, and after further explanation he said that he goes to groups. When asked what he does for his pain other than look to meds he says nothing and when I suggest hot/ cold application, gentle stretching, he says he does those things in his room Immediately after our discussion, he requested prn pain meds from the nurse. She then reported that the patient attempted to hide his narcotic pill in his pocket saying that he had taken it. When it was discovered he made excuses about not meaning to, he thought that he took it. Review of Systems Constitutional: + fatigue ENT: No dental problems, No hearing loss, No nasal symptoms, No problem reported, No sore throat, No tinnitus, No trouble swallowing, No unusual epistaxis Respiratory: No cough, No dyspnea at rest, No dyspnea on exertion, No hemoptysis, No problem reported, No shortness of breath, No sputum, No wheezing Cardiovascular: No PND, No chest pain, No claudication, No edema, No orthopnea , No palpitations, No problem reported Abdomen: No GI bleeding, No constipation, No diarrhea, No nausea, No pain, No problem reported, No vomiting Musculoskeletal: + problem reported (back pain) Neurologic: No balance problems, No memory loss, No numbness/tingling, No paralysis, No problem reported, No vertigo, No weakness Psychiatric: + anxiety, + depression symptoms Integumentary: + problem reported (rt sandhu wound) Sleep Information Total Hours of Sleep: 6.00 Meal Information Percent of Breakfast Consumed: 100 Percent of Lunch Consumed: 75 Percent of Dinner Consumed: 80 Mental Status Exam During interview pt is: alert and oriented Appearance: appropriately dressed Eye contact is: poor Motor behavior is: steady gait & station, no abnormal motor movements Speech: normal in rate, rhythm & volume Affect: depressed, other (restricted to depressed during interview, but observed eating breakfast with peers just prior, laughing and joking.) Mood is: depressed Thought process: goal directed Thought content: reality based without delusions Suicidal thought are: present ("I might do something if I have a panic attack") , Plan: denied, Intent: denied Homicidal thoughts are: denied Hallucinations: denies auditory, denies visual Cognition: memory grossly intact, attention grossly intact, language grossly intact Intelligence estimated to be: average Insight: impaired Judgement: impaired Summary of Past History 46-year-old gentleman admitted voluntarily for treatment of depression and anxiety. He reports this has been increasing and claims not understand why, although in the same breath, he says he is being evicted from his home. Our goal will be to appropriately treat his pain, which will include confirming his outpatient prescriptions and providers. We are certainly concerned by what we see in the [place] prescription drug monitoring program and we will make sure that we are coordinating with his other outpatient providers. We will establish a family meeting with his rosalindadanilo Priya as soon as possible. Multiple medications have been increased at his request. He has signed 2 contracts; one is a behavioral contract, requiring that he attend programming, participate positively in his treatment, etc. This second is a contract established by risk management here at the hospital, which includes the fact that he should not ambulate without assistance in view of history of frequent falls. He has not been abiding by the assisted ambulation contract, saying that he does not need it, has been making sexually inappropriate comments/ gestures, and was caught cheeking opiate pain meds. He has been advised that he may be discharged if he is not complying with treatment, and a second meeting has been scheduled with his girlfriend whom he lives with to prepare for discharge. DIAGNOSES: 1. Major depressive disorder, recurrent, severe, without psychotic features. 2. Narcissistic and antisocial personality disorder. 3. Opioid dependence. 4. Benzodiazepine dependence. 5. Obesity with a current BMI of 43.8. 6. Chronic pain, on chronic opioids. 7. Type 2 diabetes. 8. Benign prostatic hypertrophy. 9. Suspect malingering (caught cheeking meds, not following treatment plans, med seeking) Impression There continues to be disparity between his statements of severe depression and anxiety, and objective observations of the patient, laughing, singing, playing games. He cheeked his meds yesterday, and despite having a conversation about this and about working on his issues, he immediately attempted to divert another narcotic pill to his pocket. I spoke with the patient to inform him that he will be evaluated for administrative discharge based on his behaviors which he said was "unfair". Staff was present for this discussion. A staff member then came to tell me that he attempted to stab his arm with a pencil and so will be placed on Line of Vision supervision until he can be see by the Director of Psychiatric Services. Wounds examined. 6 small puncture wounds in left antecubital area made with a pencil. Bleeding has ceased, cleansed with saline by nursing and dry dressing applied. No impairment distally: fingers warm with good ROM. No evidence of hematoma at the site. Continued Inpatient Care The patient requires inpatient care due to the severity of his condition and the risk for self harm if discharged. Plan (1) Suicide gesture - safety checks - participate in groups - work on healthy coping skills and safety plan - family meeting with girlfriend to review safety concerns (2) Depression 10/06 - Continue Cymbalta 90 mg daily. - Encourage participation in group and individual counseling. According to the contractor, he has signed, he will participate in every group. - Obtain records from and coordinate care with current outpatient providers. - Recommend a therapist. 10/07 - Pt agreeable to therapy referral. 10/08 - Increase Cymbalta to 120 mg daily - Increase Trazodone to 150 mg. for sleep - Arrange family meeting 10/09 - Family meeting held yesterday with Estrella - Continue Cymbalta 120 mg. daily - Reduce Trazodone to 125 mg. due to AM hangover - Panic logs to identify pattern to his anxiety. 10/12 - Second family meeting with Estrella to review safety plan, coping skills he has been working on, and to proceed with discharge. (3) Anxiety 10/06 - Continue home dose of Ativan, being prescribed by Urgent Care in [place]. - Increase gabapentin to 600 mg t.i.d. 10/08 - Assist the patient to learn and utilize healthy coping strategies (4) Personality disorder Has both antisocial and narcissistic traits The patient has signed a behavioral contract that will guide his behavior here on the unit in view of his past behaviors, which were felt to be disruptive. Assist the patient to learn and utilize additional healthy coping strategies. As per the contract, encourage the patient to use his verbal skills to express his feelings rather than acting them out. 10/09 - Patient clearly wanting to be in the hospital longer than we feel is profittable. By all observations he is happy, laughing and joking with peers at all times and never demonstrates outward distress or anxiety. (5) Narcotic dependence Long history of abusing pain pills. Signed ERNESTO for current opiate and benzo prescriber, who is in [place]. [place] drug database shows he is filling controlled substance prescriptions from multiple prescribers across the state. Coordinate with all outpatient prescribers regarding his medications. Encourage daily physical activity as tolerated. 10/12 - patient caught cheeking Roxicodone, room searched, but no other pills found. Concerned that he has not been taking medications appropriately, may be saving them up or taking large quantities. To limit risk of this and try to maximize safety, advised him that the Roxicodone dose would be decreased (to q 12 hours). Staff to do mouth checks with each medication. Patient also advised that he is not following his behavioral contract, and that if he continues to refuse to do so, will be discharged. (6) Obesity Encourage healthy diet and weight loss (7) Diabetes 10/06 - Diabetic diet. - Consult dietitian. 10/08 - Encourage exercise (8) BPH (benign prostatic hypertrophy) Continue home medications. Discharge / Aftercare Planning Primary Care Physician: Name: Dr Loredo Appointment Notes: as needed Psychiatrist: Name: Dr Mata at [facility] Phone Number: [phone] Date of Appointment: Oct 15, 2016 Time of Appointment: 1:30 Therapist: Name: Suzan Tovar at [facility] Phone Number: [phone] Date of Appointment: Oct 28, 2016 Time of Appointment: 11am Insulation Extruder Operator: Name: Luke MAJOR Appointment Notes: THey will call pt after discharge to set up appointment Pain Clinic: Name: [facility] Phone Number: [phone] Date of Appointment: Oct 17, 2016 Time of Appointment: 10:15 Visit Code E&M Code: [id number] Risk Factors Assessment Male: Yes : Yes /single/: No Higher / Fall in social status: No Health problems: Yes Mental Health Diagnoses: Yes Substance use disorders: Yes Previous attempt: No Previous psychiatric stay: Yes Hopelessness: No Smoker: Yes Protective Factors Assessment : No Responsible for young children: No Employed: No Stable relationships: Yes Supportive family: Yes Data Vital Signs Last 24 Hrs: Date Time Temp Pulse Resp B/P Pulse Ox O2 Delivery O2 Flow Rate FiO2 10/13/16 06:50 36.4 81 18 111/70 87 101/67 Meds Administered Last 24 Hrs: Meds Administered (Past 24Hrs) Medications (Trade) Dose Ordered Sig/Amalia Route Start Time Stop Time Status Last Admin Dose Admin Oxycodone HCl (Roxicodone Immediate Rel Tab) 15 mg Q12 PRN PO 10/12/16 21:00 10/26/16 20:59 10/13/16 09:14 15 MG Lab Results Last 24 Hrs: 10/05/16 14:54 Red Blood Count 5.12, Mean Corpuscular Volume 82.0, Mean Corpuscular Hemoglobin 27.3, Mean Corpuscular Hemoglobin Concent 33.3, Mean Platelet Volume 10.6, Neutrophils (%) (Auto) 70.4, Lymphocytes (%) (Auto) 18.9, Monocytes (%) (Auto) 9.0, Eosinophils (%) (Auto) 1.1, Basophils (%) (Auto) 0.4, Neutrophils # (Auto) 7.46, Lymphocytes # (Auto) 2.00, Monocytes # (Auto) 0.95, Eosinophils # (Auto) 0.12, Basophils # (Auto) 0.04 10/05/16 14:54 Test 10/05/16 14:15 10/05/16 14:54 10/07/16 06:55 Urine Color YELLOW Urine Appearance CLEAR (CLEAR) Urine pH 6.5 (4.5-7.5) Urine Specific [place] 1.026 (1.000-1.030) Urine Protein NEG (NEG) Urine Glucose (UA) NEG (NEG) Urine Ketones NEG (NEG) Urine Occult Blood NEG (NEG) Urine Nitrite NEG (NEG) Urine Bilirubin NEG (NEG) Urine Urobilinogen NEG (NEG) Urine Leukocyte Esterase NEG (NEG) Urine Opiates Screen POS (NEG) Urine Codeine Confirmation (GC/MS) NEGATIVE NG/ML (CUTOFF=50) Urine Morphine Confirm (GC/MS) NEGATIVE NG/ML (CUTOFF=50) Urine Hydrocodone Confirm (GC/MS) NEGATIVE NG/ML (CUTOFF=50) Urine Norhydrocodone NEGATIVE NG/ML (CUTOFF=50) Urine Noroxycodone 4340 NG/ML (CUTOFF=50) Urine Oxycodone Confirm (GC/MS) 1140 NG/ML (CUTOFF=50) Urine Oxymorphone Confirm (GC/MS) 1510 NG/ML (CUTOFF=50) Urine Methadone, Qualitative NEG (NEG) Urine Hydromorphone Confirm (GC/MS) NEGATIVE NG/ML (CUTOFF=50) Urine Barbiturates NEG (NEG) Urine Phencyclidine (PCP) Level NEG (NEG) Ur Amphetamine/Methamphetamine NEG (NEG) Urine MDE-amphetamine (MDEA) negative ng/mL (<200) Ur Methylenedioxyamphetamine (MDA) negative ng/mL (<200) MDMA (Ecstasy) Screen POS (NEG) Methylenedioxymethamphetamine (MDMA negative ng/mL (<200) Urine Benzodiazepines Screen NEG (NEG) Urine Cocaine Metabolite NEG (NEG) Urine Marijuana (THC) NEG (NEG) White Blood Count 10.59 K/uL (4.8-10.8) Red Blood Count 5.12 M/uL (4.7-6.1) Hemoglobin 14.0 g/dL (14.0-18.0) Hematocrit 42.0 % (42-52) Mean Corpuscular Volume 82.0 fL (80-100) Mean Corpuscular Hemoglobin 27.3 pg (25-34) Mean Corpuscular Hemoglobin Concent 33.3 g/dl (32-36) Platelet Count 204 K/uL (130-400) Mean Platelet Volume 10.6 fL (7.4-10.4) Neutrophils (%) (Auto) 70.4 % Lymphocytes (%) (Auto) 18.9 % Monocytes (%) (Auto) 9.0 % Eosinophils (%) (Auto) 1.1 % Basophils (%) (Auto) 0.4 % Neutrophils # (Auto) 7.46 K/uL (1.4-6.5) Lymphocytes # (Auto) 2.00 K/uL (1.2-3.4) Monocytes # (Auto) 0.95 K/uL (0.11-0.59) Eosinophils # (Auto) 0.12 K/uL (0-0.5) Basophils # (Auto) 0.04 K/uL (0-0.2) RDW Standard Deviation 50.4 fL (36.4-46.3) RDW Coefficient of Variation 16.7 % (11.5-14.5) Immature Granulocyte % (Auto) 0.2 % Immature Granulocyte # (Auto) 0.02 K/uL (0.00-0.02) Prothrombin Time 10.7 SECONDS (9.0-12.0) Prothromb Time International Ratio 1.0 (0.9-1.1) Activated Partial Thromboplast Time 26.4 SECONDS (21.0-31.0) Partial Thromboplastin Ratio 1.0 Anion Gap 9.0 mmol/L (3-11) Est Creatinine Clear Calc Drug Dose 152.5 ml/min Estimated GFR () 118.3 Estimated GFR (Non- 102.1 BUN/Creatinine Ratio 13.7 (10-20) Osmolality 297 mOsm/kg (280-300) Calcium Level 9.2 mg/dl (8.5-10.1) Total Bilirubin 0.3 mg/dl (0.2-1) Direct Bilirubin < 0.1 mg/dl (0-0.2) Aspartate Amino Transf (AST/SGOT) 14 U/L (15-37) Alanine Aminotransferase (ALT/SGPT) 20 U/L (12-78) Alkaline Phosphatase 88 U/L (45-117) Total Creatine Kinase 122 U/L (39-308) Creatine Kinase MB 0.5 ng/ml (0.5-3.6) Creatine Kinase MB Ratio 0.4 (0-3.0) Troponin I < 0.015 ng/ml (0-0.045) Total Protein 6.6 gm/dl (6.4-8.2) Albumin 3.1 gm/dl (3.4-5.0) Lipase 134 U/L (73-393) Salicylates Level < 1.7 mg/dl (2.8-20) Acetaminophen Level < 2 ug/ml (10-30) Ethyl Alcohol mg/dL < 3.0 mg/dl (0-3) Fasting Glucose 99 mg/dl (70-99) Triglycerides Level 95 mg/dl (0-150) Cholesterol Level 171 mg/dl (0-200) HDL Cholesterol 41 mg/dl LDL Cholesterol, Calculated 111 mg/dl VLDL Cholesterol, Calculated 19 mg/dl Cholesterol/HDL Ratio 4.2 Thyroid Stimulating Hormone (TSH) 2.240 uIu/ml (0.300-4.500) Date/Time Source Procedure Growth Status 10/05/16 17:25 Nasal MRSA DNA Surveillance Screen - Final Specimen Negative for MRSA by DNA Probe Complete 10/07/16 09:35 Ulcer Leg Right Lower Gram Stain - Final Complete 10/07/16 09:35 Wound Culture - Final Corynebacterium Species Coag Neg Staphylococcus Gamma Strep Not Enterococcus Complete Problem Qualifiers (1) Depression: Depression Type: major depressive disorder Active/Remission status: currently active Major depression episode severity: severe Psychotic features : without psychotic features (2) Diabetes: Diabetes mellitus type: type 2 Diabetes mellitus complication status: without complication 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
[2016-10-13] MEDS ORDERED: CYM60 PO (14:24)
[2016-10-13] MEDS ORDERED: OXY/15 PO (14:24)
[2016-10-13] MEDS ORDERED: TRAZ1TAB5 PO (14:24)
[2016-10-13] MEDS ORDERED: NRN600 PO (14:24)
--- NOTE | 2016-10-13 14:26 | Discharge Instructions ---
Discharge Instructions Admission Reason for Admission: Depression (Evelin Watson,SHEREE) Discharge Discharge Diagnosis / Problem: Depression, anxiety, personality disorder, (Evelin Watson NP) Discharge Goals Goal(s): Decrease discomfort, Improve disease control, Prevent Disease Progression (Evelin Watson,SHEREE) Activity Recommendations Activity Limitations: resume your previous activity . (Evelin Watson NP) Instructions / Follow-Up Instructions / Follow-Up . SPECIAL CARE INSTRUCTIONS: 1. Follow through with your scheduled aftercare appointments. If unable to keep an appointment, please call to reschedule. 2. Take your medication only as prescribed. Medication should not be changed or stopped without the approval of your doctor. In the event of worsening symptoms or concerns about side effects, contact your doctor immediately. 3. Utilize new healthy coping skills, anger management skills, and stress management skills learned during your hospitalization. Journal feelings and process them with a support person. Identify stressors or situations that may result in relapse, deterioration or inappropriate behaviors and develop a plan to deal with those issues. 4. If your coping skills are ineffective and you are in crisis, contact your outpatient providers for direction. If unable to reach your providers, please call the CAN HELP LINE AT or go to the closest Emergency Room. 5. Avoid alcohol and un-prescribed drugs. 6. You have been provided with the Mental Health Advance Directives Pamphlet for your review. AFTERCARE APPOINTMENTS: * Please call your insurance company prior to your scheduled appointment to confirm your aftercare providers are covered. Take your insurance information to your appointments. . (Evelin Watson NP) Diet Recommendations Diet(s): Regular Diet, Diabetes Type 2 Diet (Evelin Watson NP) Laboratory Results Lipid Panel Test 10/07/16 06:55 Range/Units Triglycerides Level 95 0-150 mg/dl Cholesterol Level 171 0-200 mg/dl HDL Cholesterol 41 mg/dl Cholesterol/HDL Ratio 4.2 LDL Cholesterol, Calculated 111 mg/dl (Evelin Watson,SHEREE) Medical Emergencies . Who to Call and When: Medical Emergencies: If at any time you feel your situation is an emergency, please call 911 immediately. . (Evelin Watson,SHEREE) Non-Emergent Contact Non-Emergency issues call your: Primary Care Provider, Psychiatrist, Therapist (Watson, Evelin E.,BOX SEALING MACHINE FEEDER) . "Provider Documentation" section prepared by Evelin Watson. (Evelin Watson,BOX SEALING MACHINE FEEDER) [place] Drug Monitoring Program Search Results: patient reviewed within database (Evelin Watson,BOX SEALING MACHINE FEEDER)
--- NOTE | 2016-10-13 18:54 | Psych Management Progress Note ---
Psychiatry Second Opinion Date of Service: Oct 13, 2016. Case reviewed, patient known to me from previous hospital stay, history of severe personality disordered/attention seeking behavior both on the inpatient unit and medical floor. Patient signed a behavioral contract upon admission to the unit but team feels not complying and ongoing hospitalization is no longer therapeutic. He has engaged in manipulative behaviors around his pain medication, has attempted to chew/cheek/hide in pocket. When confronted about his behavior earlier today he engaged in self harm behavior of breaking skin on his left antecubital fossa with a pencil. He has reported suicidal thoughts to staff, mainly in context of not getting his way. He has a history of recurrent self harm behavior and reviewed that it is unlikely he will be fully free of self harm thoughts at discharge, our plan is focussing on coping skills. Given repeated failure to redirect to his treatment agreement, I recommend administrative discharge of this patient. He was informed of his patient rights and desires to file a medicare appeal. I did speak with his fiance to explain the situation and she expressed ongoing concerns about his ability to refrain from self injurious behavior at home given behavior today. Reviewed my concerns about his ability to engage in therapy here given dynamics with staff and manipulative and attention seeking nature of his behaviors. She did admit that she secures his medication but sometimes gives him an extra pain pill. She denies that he is out of pain medications at home (gave pill counts earlier to older adult social work specialist), next pain management appt is in [facility] this Wednesday. Reviewed importance of taking meds as prescribed and not chewing. Reviewed his behavioral agreement and he agreed that it should be revised for the remainder of his time in the hospital to reflect his commitment to refrain from misuse of pain medication. Miranda Molina RN was notified.
[2016-10-13] MEDS: TOPIRAMATE 100 MG TAB PO SCH (22:17)
[2016-10-13] MEDS: TRAZODONE HCL 50 MG TAB PO SCH (22:17)
[2016-10-14] MEDS: OXYCODONE HCL IR 5 MG TAB (IMMEDIATE RELEASE) PO PRN (00:05)
[2016-10-14] MEDS: LORAZEPAM 1 MG TAB PO PRN ×2 (00:07→16:01)
[2016-10-14] MEDS: MoRPHine SULFATE IR 15 MG TAB (IMMEDIATE RELEASE) PO SCH ×3 (06:31→21:43)
[2016-10-14 06:52] VITALS: BP_SYST 115; BP_SYST 122; BP_DIAS 69; BP_DIAS 76; PULSE 80; PULSE 87; TEMP 36.4
[2016-10-14] MEDS: NICOTINE 21 MG/24 HR TDSY EXT SCH (09:12)
[2016-10-14] MEDS: DOCUSATE SODIUM 100 MG CAP PO SCH ×2 (09:13→21:42)
[2016-10-14] MEDS: DULOXETINE HCL 60 MG CAP PO SCH (09:13)
[2016-10-14] MEDS: GABAPENTIN 600 MG TAB PO SCH ×3 (09:14→21:43)
[2016-10-14] MEDS: FINASTERIDE 5 MG TAB PO SCH (09:14)
[2016-10-14] MEDS: PANTOprazole SOD 40 MG TAB PO SCH (09:14)
[2016-10-14] MEDS: QUETIAPINE FUMARATE 25 MG TAB PO SCH ×2 (09:14→21:42)
[2016-10-14] MEDS: TAMSULOSIN HCL 0.4 MG CAP PO SCH (09:14)
--- NOTE | 2016-10-14 11:44 | Psychiatric Progress Notes ---
Progress Note Date of Service Oct 14, 2016. Interval History Stanton Milner is a 46-year-old male from [place], [place], who was admitted to our unit on a 201 voluntary commitment with severe depression, suicidality and anxiety. Information is gathered from the patient, the electronic medical record, and the [place] prescription drug monitoring program. Chief Complaint "Eh, half and half". Subjective Patient was seen & assessed interval progress reviewed with Treatment Team, Tool Maker Bench, and Roofing Technician, who saw the patient yesterday and recommended an administrative discharge due to ongoing manipulative behavior, refusal to follow his behavioral and fall contracts, and lack of progress with treatment. He appealed to Medicare as he did not want to be discharged. Today he reports mood is improved from yesterday, but "still depressed, still think about hurting myself." He is vague when asked to clarify these thoughts, saying "just different ways..." With further questioning, states he has thoughts of cutting his arm or wrist, but will not act on it here, as "I don't have a knife. " He is able to review the coping skills and safety plan he's been working on, including talking to his girlfriend, calling his psychiatrist, [facility], case assembler or therapist (new services that he is being referred for). He demands to be given more opiate pain medication, saying "medicare said you can't take those away." Again explained safety concerns and that as he has not been able to demonstrate ability to take the medications safely and as prescribed, we need to limit his access to them. He admits that he has saved pain meds and chewed them during this stay, and is angry that he got caught. Reviewed concerns about his long standing substance abuse problems, including reports that he was over-using the opiates at home and was going to run out early. He denied this initially, then said he was going to run out, but it was the PA's fault, as "she didn't prescribe enough." Advised him that I've reviewed her records and he was given enough to last a month, and has clearly used more than he was supposed to based on the numbers of pills left in the bottles. Reviewed recommendations for rehab and addressing his addictions issues, which fuel his mental health issues, and he became upset and said he doesn't have addiction problems. Encouraged him to work on an alternate plan as he has said if he is discharged imminently, he is not welcome to return to [facility]'s house, and indicated an unwillingness to work on an alternate plan. Sleep Information Total Hours of Sleep: 10.50 Meal Information Percent of Breakfast Consumed: 100 Percent of Lunch Consumed: 75 Percent of Dinner Consumed: 75 Mental Status Exam During interview pt is: alert and oriented Appearance: appropriately dressed Eye contact is: poor Motor behavior is: steady gait & station, no abnormal motor movements Speech: normal in rate, rhythm & volume Affect: depressed, other (appears restricted to depressed during interview, but observed multiple times on the unit, laughing and joking with peers, with bright affect) Mood is: other ("half and half, better") Thought process: goal directed Thought content: reality based without delusions Suicidal thought are: present ("I don't know what I might do," with prompting, says he might cut his arm, if he had a knife), Intent: denied Homicidal thoughts are: denied Hallucinations: denies auditory, denies visual Cognition: memory grossly intact, attention grossly intact, language grossly intact Intelligence estimated to be: average Insight: impaired Judgement: impaired Summary of Past History 46-year-old gentleman admitted voluntarily for treatment of depression and anxiety. He reports this has been increasing and claims not understand why, although in the same breath, he says he is being evicted from his home. Our goal will be to appropriately treat his pain, which will include confirming his outpatient prescriptions and providers. We are certainly concerned by what we see in the [place] prescription drug monitoring program and we will make sure that we are coordinating with his other outpatient providers. We will establish a family meeting with his rosalindadaniloPriya as soon as possible. Multiple medications have been increased at his request. He has signed 2 contracts; one is a behavioral contract, requiring that he attend programming, participate positively in his treatment, etc. This second is a contract established by risk management here at the hospital, which includes the fact that he should not ambulate without assistance in view of history of frequent falls. He has not been abiding by the assisted ambulation contract, saying that he does not need it, has been making sexually inappropriate comments/ gestures, and was caught cheeking opiate pain meds. He has been advised that he may be discharged if he is not complying with treatment, and a second meeting has been scheduled with his girlfriend whom he lives with to prepare for discharge. DIAGNOSES: 1. Major depressive disorder, recurrent, severe, without psychotic features. 2. Narcissistic and antisocial personality disorder. 3. Opioid dependence. 4. Benzodiazepine dependence. 5. Obesity with a current BMI of 43.8. 6. Chronic pain, on chronic opioids. 7. Type 2 diabetes. 8. Benign prostatic hypertrophy. 9. Suspect malingering (caught cheeking meds, not following treatment plans, med seeking) Impression There continues to be disparity between his statements of severe depression and anxiety and objective observations of the patient, laughing and singing. He has been caught cheeking his opiate pain medications twice, ans admits he has been saving them and then chewing them up. He has a history of opiate abuse and has been abusing his pain medications at home, taking more than prescribed, and would have run out early this month. In light on continued refusal to follow his treatment plan and behavioral contract, he was evaluated for administrative discharge 10/13, but he requested to appeal to Medicare and they are currently reviewing. He then engaged in self injury with a pencil, and had superficial injury to the skin of his forearm. He is now on Line of Vision supervision. Plan (1) Suicide gesture - safety checks - participate in groups - work on healthy coping skills and safety plan - family meeting with girlfriend to review safety concerns 10/13 - self inflicted superficial injury to forearm in context of being told administrative discharge was being recommended. Wounds cleaned and dressed by staff. Will continue to monitor, Patient places on line of sight of staff for safety. 10/14 - Agree with Dr. Alfaro's assessment that pt is voicing conditional SI, is not benefitting from treatment, is not compliant with treatment or following the fall and behavioral contracts he signed on admission, and is not likely to benefit from further inpatient treatment. Agree with administrative discharge. Patient has appealed to Medicare and we will await their determination. In the meantime he has agreed to attend every group and to continue working on healthy coping skills, safety plan, and arrangements in case of discharge. Continue in line of sight observation by staff. (2) Depression 10/06 - Continue Cymbalta 90 mg daily. - Encourage participation in group and individual counseling. According to the contractor, he has signed, he will participate in every group. - Obtain records from and coordinate care with current outpatient providers. - Recommend a therapist. 10/07 - Pt agreeable to therapy referral. 10/08 - Increase Cymbalta to 120 mg daily - Increase Trazodone to 150 mg. for sleep - Arrange family meeting 10/09 - Family meeting held yesterday with Estrella - Continue Cymbalta 120 mg. daily - Reduce Trazodone to 125 mg. due to AM hangover - Panic logs to identify pattern to his anxiety. 10/12 - Second family meeting with Estrella to review safety plan, coping skills he has been working on, and to proceed with discharge. (3) Anxiety 10/06 - Continue home dose of Ativan, being prescribed by [facility] in [place]. - Increase gabapentin to 600 mg t.i.d. 10/08 - Assist the patient to learn and utilize healthy coping strategies (4) Personality disorder Has both antisocial and narcissistic traits The patient has signed a behavioral contract that will guide his behavior here on the unit in view of his past behaviors, which were felt to be disruptive. Assist the patient to learn and utilize additional healthy coping strategies. As per the contract, encourage the patient to use his verbal skills to express his feelings rather than acting them out. 10/09 - Patient clearly wanting to be in the hospital longer than we feel is profitable. By all observations he is happy, laughing and joking with peers at all times and never demonstrates outward distress or anxiety. 10/14 - Continued disruptive and inappropriate behavior, caught cheeking opiate pain medications twice, agree wit administrative discharge, as primary issues are substance abuse and personality disorder, and are not likely to be mitigated by further inpatient treatment. (5) Narcotic dependence Long history of abusing pain pills. Signed ERNESTO for current opiate and benzo prescriber, who is in [place]. [place] drug database shows he is filling controlled substance prescriptions from multiple prescribers across the state. Coordinate with all outpatient prescribers regarding his medications. Encourage daily physical activity as tolerated. 10/12 - patient caught cheeking Roxicodone, room searched, but no other pills found. Concerned that he has not been taking medications appropriately, may be saving them up or taking large quantities. To limit risk of this and try to maximize safety, advised him that the Roxicodone dose would be decreased (to q 12 hours). Staff to do mouth checks with each medication. Patient also advised that he is not following his behavioral contract, and that if he continues to refuse to do so, will be discharged. 10/14 - Again caught trying to pocket pain medication yesterday, so prn opiates discontinued. Called [facility] in [place] where he has gotten his most recent narcotics, and spoke with prescriber Kenia Reynolds to update her on his medication abuse, over-using of prescribed narcotics, and misuse of medications here in the hospital. She stated her supervising physician would likely be seeing him if he followed up there, due to these behaviors. (6) Obesity Encourage healthy diet and weight loss (7) Diabetes 10/06 - Diabetic diet. - Consult dietitian. 10/08 - Encourage exercise (8) BPH (benign prostatic hypertrophy) Continue home medications. Discharge / Aftercare Planning Primary Care Physician: Name: Dr Loredo Appointment Notes: as needed Psychiatrist: Name: Dr Mata at [facility] Phone Number: [phone] Date of Appointment: Oct 15, 2016 Time of Appointment: 1:30 Therapist: Name: Suzan Tovar at [facility] Phone Number: [phone] Date of Appointment: Oct 28, 2016 Time of Appointment: 11am Configuration Management Manager: Name: [facility] Appointment Notes: THey will call pt after discharge to set up appointment Pain Clinic: Name: [facility] Phone Number: [phone] Date of Appointment: Oct 17, 2016 Time of Appointment: 10:15 Visit Code E&M Code: [id number] Risk Factors Assessment Male: Yes : Yes /single/: No Higher / Fall in social status: No Health problems: Yes Mental Health Diagnoses: Yes Substance use disorders: Yes Previous attempt: No Previous psychiatric stay: Yes Hopelessness: No Smoker: Yes Protective Factors Assessment : No Responsible for young children: No Employed: No Stable relationships: Yes Supportive family: Yes Data Vital Signs Last 24 Hrs: Date Time Temp Pulse Resp B/P Pulse Ox O2 Delivery O2 Flow Rate FiO2 10/14/16 06:52 36.4 80 16 115/69 87 122/76 Meds Administered Last 24 Hrs: Meds Administered (Past 24Hrs) Medications (Trade) Dose Ordered Sig/Amalia Route Start Time Stop Time Status Last Admin Dose Admin Oxycodone HCl (Roxicodone Immediate Rel Tab) 15 mg Q12 PRN PO 10/12/16 21:00 10/14/16 08:25 DC 10/14/16 00:05 15 MG Problem Qualifiers (1) Depression: Depression Type: major depressive disorder Active/Remission status: currently active Major depression episode severity: severe Psychotic features : without psychotic features (2) Diabetes: Diabetes mellitus type: type 2 Diabetes mellitus complication status: without complication Diabetes mellitus fci insulin use: without fci use Qualified Codes: E11.9 - Type 2 diabetes mellitus without complications
[2016-10-14] MEDS: SUMATRIPTAN SUCCINATE 6 MG/0.5 ML VIAL SQ PRN (14:34)
[2016-10-14] MEDS: ALBUTEROL HFA 8 GM INHALER INH PRN (21:42)
[2016-10-14] MEDS: TOPIRAMATE 100 MG TAB PO SCH (21:43)
[2016-10-14] MEDS: TRAZODONE HCL 50 MG TAB PO SCH (21:43)
[2016-10-14] MEDS: CYCLOBENZAPRINE HCL 10 MG TAB PO PRN (22:12)
[2016-10-15] MEDS: MoRPHine SULFATE IR 15 MG TAB (IMMEDIATE RELEASE) PO SCH ×3 (06:26→21:15)
[2016-10-15 06:49] VITALS: BP_SYST 123; BP_SYST 137; BP_DIAS 79; BP_DIAS 86; PULSE 111; PULSE 92; TEMP 37.1
[2016-10-15] MEDS: TAMSULOSIN HCL 0.4 MG CAP PO SCH (09:23)
[2016-10-15] MEDS: NICOTINE 21 MG/24 HR TDSY EXT SCH (09:23)
[2016-10-15] MEDS: DOCUSATE SODIUM 100 MG CAP PO SCH ×2 (09:23→21:13)
[2016-10-15] MEDS: DULOXETINE HCL 60 MG CAP PO SCH (09:23)
[2016-10-15] MEDS: QUETIAPINE FUMARATE 25 MG TAB PO SCH ×2 (09:24→21:16)
[2016-10-15] MEDS: PANTOprazole SOD 40 MG TAB PO SCH (09:24)
[2016-10-15] MEDS: FINASTERIDE 5 MG TAB PO SCH (09:24)
[2016-10-15] MEDS: GABAPENTIN 600 MG TAB PO SCH ×3 (09:24→21:16)
[2016-10-15] MEDS: ALBUTEROL HFA 8 GM INHALER INH PRN ×2 (10:27→17:18)
[2016-10-15] MEDS: BUDESONIDE/FORMOTEROL FUMARATE 80/4.5 60 PUFFS/INHALER INH PRN ×2 (10:27→18:53)
[2016-10-15 10:28] VITALS: BP 98/58; PULSE 114
--- NOTE | 2016-10-15 11:46 | Psychiatric Progress Notes ---
Progress Note Date of Service Oct 15, 2016. Interval History Stanton Milner is a 46-year-old male from [place], [place], who was admitted to our unit on a 201 voluntary commitment with severe depression, suicidality and anxiety. Information is gathered from the patient, the electronic medical record, and the [place] prescription drug monitoring program. Chief Complaint "Terrible". Subjective Patient was seen & assessed interval progress reviewed with Treatment Team. the patient continues to feel "terrible". He says that he is angry with us for not allowing him prn pain meds, and angry with himself for his behaviors. When asked what he could have done differently to get his needs met he says "I don't know.". Although his GF Estrella is still saying he cannot return to their home if he is suicidal, he feels sure that because she loves him, she will not allow him to be homeless. He says that he doesn't "understand why you are doing this" referring to the recommendations for administrative discharge, saying he didn't hurt anyone else in his acts. Encouraged to try to focus on his own behaviors, the consequences and the feelings of remorse afterward, and encouraged to put safety measures in place to prevent bad decisions and behaviors in the future. After initial meeting we received notice from Medicare that they support administrative discharge. Both Dr. Alfaro and I reviewed the ruling with him, which he said that he already knew about because they called his home and told Estrella. He says that he has had time to think and now believes that he's ready to go home. He denies being suicidal and states that he will talk with Estrella "before I do anything stupid". He says that he loves his family and will do nothing to jeopardize that. He says that he will attend his follow up appointments, is looking forward to therapy to have someone to talk to, and says the he is "a pretty outgoing maria l" and plans to make some new friends after discharge. He also reports that Estrella says he can return to their home. He thanked us for our work with him saying "I really appreciate you guys.". Review of Systems Constitutional: + fatigue ENT: No dental problems, No hearing loss, No nasal symptoms, No problem reported, No sore throat, No tinnitus, No trouble swallowing, No unusual epistaxis Respiratory: + cough, + wheezing Cardiovascular: No PND, No chest pain, No claudication, No edema, No orthopnea , No palpitations, No problem reported Abdomen: No GI bleeding, No constipation, No diarrhea, No nausea, No pain, No problem reported, No vomiting Musculoskeletal: + problem reported (Back pain) Neurologic: No balance problems, No memory loss, No numbness/tingling, No paralysis, No problem reported, No vertigo, No weakness Psychiatric: + depression symptoms (improving and denying SI) Integumentary: No bleeding, No color change, No itch, No new/changing skin lesions, No problem reported, No rash Sleep Information Total Hours of Sleep: 6.50 Meal Information Percent of Breakfast Consumed: 100 Percent of Lunch Consumed: 100 Percent of Dinner Consumed: 100 Mental Status Exam During interview pt is: alert and oriented Appearance: appropriately dressed, other (malodorous) Eye contact is: poor (stares at the floor) Motor behavior is: steady gait & station, no abnormal motor movements Speech: normal in rate, rhythm & volume Affect: depressed, other (appears restricted to depressed during interview, but observed multiple times on the unit, laughing and joking with peers, with bright affect) Mood is: other ("half and half, better") Thought process: goal directed Thought content: reality based without delusions Suicidal thought are: present ("I don't know what I might do," with prompting, says he might cut his arm, if he had a knife), Intent: denied Homicidal thoughts are: denied Hallucinations: denies auditory, denies visual Cognition: memory grossly intact, attention grossly intact, language grossly intact Intelligence estimated to be: average Insight: limited Judgement: limited Summary of Past History 46-year-old gentleman admitted voluntarily for treatment of depression and anxiety. He reports this has been increasing and claims not understand why, although in the same breath, he says he is being evicted from his home. Our goal will be to appropriately treat his pain, which will include confirming his outpatient prescriptions and providers. We are certainly concerned by what we see in the [place] prescription drug monitoring program and we will make sure that we are coordinating with his other outpatient providers. We will establish a family meeting with his Priya davies as soon as possible. Multiple medications have been increased at his request. He has signed 2 contracts; one is a behavioral contract, requiring that he attend programming, participate positively in his treatment, etc. This second is a contract established by risk management here at the hospital, which includes the fact that he should not ambulate without assistance in view of history of frequent falls. He has not been abiding by the assisted ambulation contract, saying that he does not need it, has been making sexually inappropriate comments/ gestures, and was caught cheeking opiate pain meds. He has been advised that he may be discharged if he is not complying with treatment, and a second meeting has been scheduled with his girlfriend whom he lives with to prepare for discharge. DIAGNOSES: 1. Major depressive disorder, recurrent, severe, without psychotic features. 2. Narcissistic and antisocial personality disorder. 3. Opioid dependence. 4. Benzodiazepine dependence. 5. Obesity with a current BMI of 43.8. 6. Chronic pain, on chronic opioids. 7. Type 2 diabetes. 8. Benign prostatic hypertrophy. 9. Suspect malingering (caught cheeking meds, not following treatment plans, med seeking) Impression Medicare has supported administrative discharge. Reviewed with patient who now says that he is not suicidal, can safety plan, and is ready for discharge tomorrow. We have reinforced with him the need to take all medications as prescribed. We will confirm OP appts and confirm that he will be returning home after discharge. Plan (1) Suicide gesture - safety checks - participate in groups - work on healthy coping skills and safety plan - family meeting with girlfriend to review safety concerns 10/13 - self inflicted superficial injury to forearm in context of being told administrative discharge was being recommended. Wounds cleaned and dressed by staff. Will continue to monitor, Patient places on line of sight of staff for safety. 10/14 - Agree with Dr. Alfaro's assessment that pt is voicing conditional SI, is not benefitting from treatment, is not compliant with treatment or following the fall and behavioral contracts he signed on admission, and is not likely to benefit from further inpatient treatment. Agree with administrative discharge. Patient has appealed to Medicare and we will await their determination. In the meantime he has agreed to attend every group and to continue working on healthy coping skills, safety plan, and arrangements in case of discharge. Continue in line of sight observation by staff. (2) Depression 10/06 - Continue Cymbalta 90 mg daily. - Encourage participation in group and individual counseling. According to the contractor, he has signed, he will participate in every group. - Obtain records from and coordinate care with current outpatient providers. - Recommend a therapist. 10/07 - Pt agreeable to therapy referral. 10/08 - Increase Cymbalta to 120 mg daily - Increase Trazodone to 150 mg. for sleep - Arrange family meeting 10/09 - Family meeting held yesterday with Estrella - Continue Cymbalta 120 mg. daily - Reduce Trazodone to 125 mg. due to AM hangover - Panic logs to identify pattern to his anxiety. 10/12 - Second family meeting with Estrella to review safety plan, coping skills he has been working on, and to proceed with discharge. 10/15 - Medicare supports administrative discharge secondary to manipulations of narcotics medications. Will plan on DC tomorrow AM - Patient will remain on [facility] supervision to reduce opportunity for pathological acting out. (3) Anxiety 10/06 - Continue home dose of Ativan, being prescribed by [facility] in [place]. - Increase gabapentin to 600 mg t.i.d. 10/08 - Assist the patient to learn and utilize healthy coping strategies (4) Personality disorder Has both antisocial and narcissistic traits The patient has signed a behavioral contract that will guide his behavior here on the unit in view of his past behaviors, which were felt to be disruptive. Assist the patient to learn and utilize additional healthy coping strategies. As per the contract, encourage the patient to use his verbal skills to express his feelings rather than acting them out. 10/09 - Patient clearly wanting to be in the hospital longer than we feel is profitable. By all observations he is happy, laughing and joking with peers at all times and never demonstrates outward distress or anxiety. 10/14 - Continued disruptive and inappropriate behavior, caught cheeking opiate pain medications twice, agree wit administrative discharge, as primary issues are substance abuse and personality disorder, and are not likely to be mitigated by further inpatient treatment. (5) Narcotic dependence Long history of abusing pain pills. Signed ERNESTO for current opiate and benzo prescriber, who is in [place]. [place] drug database shows he is filling controlled substance prescriptions from multiple prescribers across the state. Coordinate with all outpatient prescribers regarding his medications. Encourage daily physical activity as tolerated. 1/23 - patient caught cheeking Roxicodone, room searched, but no other pills found. Concerned that he has not been taking medications appropriately, may be saving them up or taking large quantities. To limit risk of this and try to maximize safety, advised him that the Roxicodone dose would be decreased (to q 12 hours). Staff to do mouth checks with each medication. Patient also advised that he is not following his behavioral contract, and that if he continues to refuse to do so, will be discharged. 10/14 - Again caught trying to pocket pain medication yesterday, so prn opiates discontinued. Called [facility] in [place] where he has gotten his most recent narcotics, and spoke with prescriber Kenia Reynolds to update her on his medication abuse, over-using of prescribed narcotics, and misuse of medications here in the hospital. She stated her supervising physician would likely be seeing him if he followed up there, due to these behaviors. (6) Obesity Encourage healthy diet and weight loss (7) Diabetes 10/06 - Diabetic diet. - Consult dietitian. 10/08 - Encourage exercise (8) BPH (benign prostatic hypertrophy) Continue home medications. Discharge / Aftercare Planning Primary Care Physician: Name: Dr Loredo Appointment Notes: as needed Psychiatrist: Name: Dr Mata at [facility] Phone Number: [phone] Date of Appointment: Oct 15, 2016 Time of Appointment: 1:30 Therapist: Name: Suzan Tovar at [facility] Phone Number: [phone] Date of Appointment: Oct 28, 2016 Time of Appointment: 11am Industrial Property Appraiser: Name: [facility] Appointment Notes: THey will call pt after discharge to set up appointment Pain Clinic: Name: [facility] Phone Number: [phone] Date of Appointment: Oct 17, 2016 Time of Appointment: 10:15 Visit Code E&M Code: 22687 Risk Factors Assessment Male: Yes : Yes /single/: No Higher / Fall in social status: No Health problems: Yes Mental Health Diagnoses: Yes Substance use disorders: Yes Previous attempt: No Previous psychiatric stay: Yes Hopelessness: No Smoker: Yes Protective Factors Assessment : No Responsible for young children: No Employed: No Stable relationships: Yes Supportive family: Yes Data Vital Signs Last 24 Hrs: Date Time Temp Pulse Resp B/P Pulse Ox O2 Delivery O2 Flow Rate FiO2 10/15/16 10:28 114 20 98/58 10/15/16 06:49 37.1 92 18 137/86 111 123/79 Meds Administered Last 24 Hrs: Current Inpatient Medications Medications (Trade) Dose Ordered Sig/Amalia Route Start Time Stop Time Status Last Admin Dose Admin Albuterol (Ventolin Hfa Inhaler) 2 puffs QID PRN INH 10/05/16 17:30 11/04/16 17:29 10/15/16 10:27 2 PUFFS Budesonide/ Formoterol Fumarate (Symbicort 80/ 4.5 Inh) 2 puffs BID PRN INH 10/05/16 17:30 11/04/16 17:29 10/15/16 10:27 2 PUFFS Cyclobenzaprine HCl (Flexeril Tab) 10 mg HS PRN PO 10/05/16 17:30 11/04/16 17:29 10/14/16 22:12 10 MG Finasteride (Proscar Tab) 5 mg DAILY PO 10/06/16 09:00 11/05/16 08:59 10/15/16 09:24 5 MG Ondansetron HCl (Zofran Tab) 4 mg QID PRN PO 10/05/16 17:30 11/04/16 17:29 Quetiapine Fumarate (seroQUEL TAB) 25 mg BID PO 10/05/16 21:00 11/04/16 20:59 10/15/16 09:24 25 MG Topiramate (Topamax Tab) 200 mg HS PO 10/05/16 21:00 11/04/16 20:59 10/14/16 21:43 200 MG Acetaminophen (Tylenol Tab) 650 mg Q4H PRN PO 10/05/16 17:30 11/04/16 17:29 Bismuth Subsalicylate (Kaopectate Liqd) 15 ml PRN PRN PO 10/05/16 17:30 11/04/16 17:29 Al Hydroxide/Mg Hydroxide (Maalox Susp) 30 ml Q4H PRN PO 10/05/16 17:30 2/15/17 17:29 Magnesium Hydroxide (Milk Of Magnesia Susp) 30 ml DAILY PRN PO 10/05/16 17:30 11/04/16 17:29 10/10/16 16:16 30 ML Sodium Chloride ([place] Nasal [place]) PRN PRN NA 10/05/16 17:30 11/04/16 17:29 Hydroxyzine HCl (Vistaril Tab) 50 mg HSZ PRN PO 10/05/16 17:30 11/04/16 17:29 Hydroxyzine HCl (Vistaril Tab) 25 mg Q4H PRN PO 10/05/16 17:30 11/04/16 17:29 Nicotine (Nicoderm Cq 21MG Patch) 1 patch QAM EXT 10/06/16 09:00 11/05/16 08:59 10/15/16 09:23 1 PATCH Miscellaneous (Remove Nicoderm Patch) 1 ea QAM N/A 10/06/16 09:00 11/05/16 08:59 10/15/16 09:23 1 EA Nicotine Polacrilex (Nicorette 2MG Gum) 1 piece Q1H PRN MT 10/05/16 22:00 11/04/16 21:59 Gabapentin (Neurontin Tab) 600 mg TID PO 10/06/16 14:00 11/05/16 13:59 10/15/16 09:24 600 MG Pantoprazole Sodium (Protonix Tab) 40 mg QAM PO 10/07/16 09:00 11/06/16 08:59 10/15/16 09:24 40 MG Polyethylene (Miralax Powder Packet) 17 gm DAILY PRN PO 10/06/16 10:45 11/05/16 10:44 10/10/16 10:01 17 GM Sumatriptan Succinate (Imitrex Sq Inj) 6 mg DAILY PRN SQ 10/06/16 10:45 11/05/16 10:44 10/14/16 14:34 6 MG Morphine Sulfate (MoRPHine SULFATE IR TAB) 15 mg Q8H PO 10/06/16 14:00 10/20/16 12:14 10/15/16 06:26 15 MG Lorazepam (Ativan Tab) 1 mg BID PRN PO 10/06/16 12:15 11/05/16 12:14 10/14/16 16:01 1 MG Duloxetine HCl (Cymbalta Cap) 120 mg QAM PO 10/09/16 09:00 11/08/16 08:59 10/15/16 09:23 120 MG Trazodone HCl (Desyrel Tab) 125 mg HS PO 10/09/16 22:00 11/08/16 21:59 10/14/16 21:43 125 MG Tamsulosin HCl (Flomax Cap) 0.4 mg QAM PO 10/11/16 09:00 11/10/16 08:59 10/15/16 09:23 0.4 MG Docusate Sodium (coLACE CAP) 100 mg BID PO 10/10/16 22:00 11/09/16 21:59 10/15/16 09:23 100 MG Lab Results Last 24 Hrs: 10/05/16 14:54 Red Blood Count 5.12, Mean Corpuscular Volume 82.0, Mean Corpuscular Hemoglobin 27.3, Mean Corpuscular Hemoglobin Concent 33.3, Mean Platelet Volume 10.6, Neutrophils (%) (Auto) 70.4, Lymphocytes (%) (Auto) 18.9, Monocytes (%) (Auto) 9.0, Eosinophils (%) (Auto) 1.1, Basophils (%) (Auto) 0.4, Neutrophils # (Auto) 7.46, Lymphocytes # (Auto) 2.00, Monocytes # (Auto) 0.95, Eosinophils # (Auto) 0.12, Basophils # (Auto) 0.04 10/05/16 14:54 Test 10/05/16 14:15 10/05/16 14:54 10/07/16 06:55 Urine Color YELLOW Urine Appearance CLEAR (CLEAR) Urine pH 6.5 (4.5-7.5) Urine Specific [place] 1.026 (1.000-1.030) Urine Protein NEG (NEG) Urine Glucose (UA) NEG (NEG) Urine Ketones NEG (NEG) Urine Occult Blood NEG (NEG) Urine Nitrite NEG (NEG) Urine Bilirubin NEG (NEG) Urine Urobilinogen NEG (NEG) Urine Leukocyte Esterase NEG (NEG) Urine Opiates Screen POS (NEG) Urine Codeine Confirmation (GC/MS) NEGATIVE NG/ML (CUTOFF=50) Urine Morphine Confirm (GC/MS) NEGATIVE NG/ML (CUTOFF=50) Urine Hydrocodone Confirm (GC/MS) NEGATIVE NG/ML (CUTOFF=50) Urine Norhydrocodone NEGATIVE NG/ML (CUTOFF=50) Urine Noroxycodone 4340 NG/ML (CUTOFF=50) Urine Oxycodone Confirm (GC/MS) 1140 NG/ML (CUTOFF=50) Urine Oxymorphone Confirm (GC/MS) 1510 NG/ML (CUTOFF=50) Urine Methadone, Qualitative NEG (NEG) Urine Hydromorphone Confirm (GC/MS) NEGATIVE NG/ML (CUTOFF=50) Urine Barbiturates NEG (NEG) Urine Phencyclidine (PCP) Level NEG (NEG) Ur Amphetamine/Methamphetamine NEG (NEG) Urine MDE-amphetamine (MDEA) negative ng/mL (<200) Ur Methylenedioxyamphetamine (MDA) negative ng/mL (<200) MDMA (Ecstasy) Screen POS (NEG) Methylenedioxymethamphetamine (MDMA negative ng/mL (<200) Urine Benzodiazepines Screen NEG (NEG) Urine Cocaine Metabolite NEG (NEG) Urine Marijuana (THC) NEG (NEG) White Blood Count 10.59 K/uL (4.8-10.8) Red Blood Count 5.12 M/uL (4.7-6.1) Hemoglobin 14.0 g/dL (14.0-18.0) Hematocrit 42.0 % (42-52) Mean Corpuscular Volume 82.0 fL (80-100) Mean Corpuscular Hemoglobin 27.3 pg (25-34) Mean Corpuscular Hemoglobin Concent 33.3 g/dl (32-36) Platelet Count 204 K/uL (130-400) Mean Platelet Volume 10.6 fL (7.4-10.4) Neutrophils (%) (Auto) 70.4 % Lymphocytes (%) (Auto) 18.9 % Monocytes (%) (Auto) 9.0 % Eosinophils (%) (Auto) 1.1 % Basophils (%) (Auto) 0.4 % Neutrophils # (Auto) 7.46 K/uL (1.4-6.5) Lymphocytes # (Auto) 2.00 K/uL (1.2-3.4) Monocytes # (Auto) 0.95 K/uL (0.11-0.59) Eosinophils # (Auto) 0.12 K/uL (0-0.5) Basophils # (Auto) 0.04 K/uL (0-0.2) RDW Standard Deviation 50.4 fL (36.4-46.3) RDW Coefficient of Variation 16.7 % (11.5-14.5) Immature Granulocyte % (Auto) 0.2 % Immature Granulocyte # (Auto) 0.02 K/uL (0.00-0.02) Prothrombin Time 10.7 SECONDS (9.0-12.0) Prothromb Time International Ratio 1.0 (0.9-1.1) Activated Partial Thromboplast Time 26.4 SECONDS (21.0-31.0) Partial Thromboplastin Ratio 1.0 Anion Gap 9.0 mmol/L (3-11) Est Creatinine Clear Calc Drug Dose 152.5 ml/min Estimated GFR () 118.3 Estimated GFR (Non- 102.1 BUN/Creatinine Ratio 13.7 (10-20) Osmolality 297 mOsm/kg (280-300) Calcium Level 9.2 mg/dl (8.5-10.1) Total Bilirubin 0.3 mg/dl (0.2-1) Direct Bilirubin < 0.1 mg/dl (0-0.2) Aspartate Amino Transf (AST/SGOT) 14 U/L (15-37) Alanine Aminotransferase (ALT/SGPT) 20 U/L (12-78) Alkaline Phosphatase 88 U/L (45-117) Total Creatine Kinase 122 U/L (39-308) Creatine Kinase MB 0.5 ng/ml (0.5-3.6) Creatine Kinase MB Ratio 0.4 (0-3.0) Troponin I < 0.015 ng/ml (0-0.045) Total Protein 6.6 gm/dl (6.4-8.2) Albumin 3.1 gm/dl (3.4-5.0) Lipase 134 U/L (73-393) Salicylates Level < 1.7 mg/dl (2.8-20) Acetaminophen Level < 2 ug/ml (10-30) Ethyl Alcohol mg/dL < 3.0 mg/dl (0-3) Fasting Glucose 99 mg/dl (70-99) Triglycerides Level 95 mg/dl (0-150) Cholesterol Level 171 mg/dl (0-200) HDL Cholesterol 41 mg/dl LDL Cholesterol, Calculated 111 mg/dl VLDL Cholesterol, Calculated 19 mg/dl Cholesterol/HDL Ratio 4.2 Thyroid Stimulating Hormone (TSH) 2.240 uIu/ml (0.300-4.500) Date/Time Source Procedure Growth Status 10/05/16 17:25 Nasal MRSA DNA Surveillance Screen - Final Specimen Negative for MRSA by DNA Probe Complete 10/07/16 09:35 Ulcer Leg Right Lower Gram Stain - Final Complete 10/07/16 09:35 Wound Culture - Final Corynebacterium Species Coag Neg Staphylococcus Gamma Strep Not Enterococcus Complete Problem Qualifiers (1) Depression: Depression Type: major depressive disorder Active/Remission status: currently active Major depression episode severity: severe Psychotic features : without psychotic features (2) Diabetes: Diabetes mellitus type: type 2 Diabetes mellitus complication status: without complication Diabetes mellitus correction insulin use: without correction use Qualified Codes: E11.9 - Type 2 diabetes mellitus without complications
[2016-10-15] MEDS: LORAZEPAM 1 MG TAB PO PRN ×2 (12:19→18:23)
[2016-10-15] MEDS: GUAIFENESIN 600 MG TABCR PO PRN ×2 (14:01→21:21)
[2016-10-15] MEDS: SUMATRIPTAN SUCCINATE 6 MG/0.5 ML VIAL SQ PRN ×2 (15:05→16:04)
[2016-10-15] MEDS: TRAZODONE HCL 50 MG TAB PO SCH (21:15)
[2016-10-15] MEDS: TOPIRAMATE 100 MG TAB PO SCH (21:16)
[2016-10-15] MEDS: CYCLOBENZAPRINE HCL 10 MG TAB PO PRN (21:21)
[2016-10-15 21:46] VITALS: BP 142/72; PULSE 118; TEMP 37.6
[2016-10-16] MEDS: LORAZEPAM 1 MG TAB PO PRN ×2 (03:24→09:33)
[2016-10-16] MEDS: ALBUTEROL HFA 8 GM INHALER INH PRN (03:28)
[2016-10-16] MEDS: MoRPHine SULFATE IR 15 MG TAB (IMMEDIATE RELEASE) PO SCH (06:22)
[2016-10-16 06:48] VITALS: BP_SYST 100; BP_SYST 113; BP_DIAS 54; BP_DIAS 61; PULSE 103; PULSE 12; TEMP 38.5
[2016-10-16] MEDS ORDERED: NRN600 PO (09:25)
[2016-10-16] MEDS ORDERED: CYM60 PO (09:25)
[2016-10-16] MEDS: DOCUSATE SODIUM 100 MG CAP PO SCH (09:30)
[2016-10-16] MEDS: TAMSULOSIN HCL 0.4 MG CAP PO SCH (09:30)
[2016-10-16] MEDS: NICOTINE 21 MG/24 HR TDSY EXT SCH (09:30)
[2016-10-16] MEDS: FINASTERIDE 5 MG TAB PO SCH (09:30)
[2016-10-16] MEDS: DULOXETINE HCL 60 MG CAP PO SCH (09:30)
[2016-10-16] MEDS: GABAPENTIN 600 MG TAB PO SCH (09:30)
[2016-10-16] MEDS ORDERED: NALO1SPR INTNAS (09:31)
[2016-10-16] MEDS: QUETIAPINE FUMARATE 25 MG TAB PO SCH (09:31)
[2016-10-16] MEDS: PANTOprazole SOD 40 MG TAB PO SCH (09:31)
--- NOTE | 2016-10-16 09:42 | Discharge Instructions ---
Discharge Information Report Includes Report will include the: Discharge Instructions & Summary Admission Admission Date / Time: Oct 05, 2016 at 17:24 Reason for Admission: Depression Discharge Discharge Diagnosis / Problem: major depressive disorder, opiate dependence Condition at Discharge: Fair Discharge Goals Goal(s): Improve function, Improve disease control Activity Recommendations Activity Limitations: resume your previous activity . Instructions / Follow-Up Instructions / Follow-Up . SPECIAL CARE INSTRUCTIONS: 1. Follow through with your scheduled aftercare appointments. If unable to keep an appointment, please call to reschedule. 2. Take your medication only as prescribed. Medication should not be changed or stopped without the approval of your doctor. In the event of worsening symptoms or concerns about side effects, contact your doctor immediately. 3. Utilize new healthy coping skills, anger management skills, and stress management skills learned during your hospitalization. Journal feelings and process them with a support person. Identify stressors or situations that may result in relapse, deterioration or inappropriate behaviors and develop a plan to deal with those issues. 4. If your coping skills are ineffective and you are in crisis, contact your outpatient providers for direction. If unable to reach your providers, please call the CAN HELP LINE AT or go to the closest Emergency Room. 5. Avoid alcohol and un-prescribed drugs. 6. You have been provided with the Mental Health Advance Directives Pamphlet for your review. AFTERCARE APPOINTMENTS: * Please call your insurance company prior to your scheduled appointment to confirm your aftercare providers are covered. Take your insurance information to your appointments. . Discharge / Aftercare Planning Primary Care Physician: Name: Dr Loredo Date of Appointment: Oct 19, 2016 Time of Appointment: 1:50 Appointment Notes: as needed Psychiatrist: Name: Dr Mata at [facility] Phone Number: [phone] Date of Appointment: Oct 20, 2016 Time of Appointment: 10:30 Appointment Notes: appt. made and confirmed by Estrella Therapist: Name Of Therapist: Suzan Tovar at [facility] Phone Number: [phone] Date of Appointment: Oct 28, 2016 Time of Appointment: 11am Blacksmith Assistant: Name: [facility] Appointment Notes: Tyree has called home number twice and will call again today Pain Clinic: Name: [facility] Phone Number: [phone] Date of Appointment: Oct 17, 2016 Time of Appointment: 10:15 please check with [facility] tomorrow on the frequency of your pain medications. Discharge med orders reflect meds as given here in hospital. . Follow-Up Care Plan for Follow-Up Care: keep appointments as listed above. Narcan was provided as discharge given risks associated with your medications, particularly given history of overdose. Written instructions provided to Estrella re: admin and she was accepting of the responsibility to administer in case of emergency. On 10/14/[address] Alfaro that meds are kept in lock box and she understands they should be administered as prescribed and not chewed as can affect absorption. Current Hospital Diet Patient's current hospital diet: Regular Diet Discharge Diet Recommended Diet: Regular Diet Procedures Procedures Performed: No Pending Studies Pending Studies at Discharge: No Medical Emergencies . Who to Call and When: Medical Emergencies: For questions or emergencies related to your hospital stay, please contact the Inpatient Behavioral Health Unit at [phone]. A power tool repairer is on-call 12/04 for the Behavioral Health Unit for emergencies At any time you feel your situation is an emergency, you may also call 911 immediately. . Non-Emergent Contact Non-Emergency issues call your: Primary Care Provider, Psychiatrist, Therapist Contact Number: as above Advance Directives Existing Advance Directive: No Do You Have an Existing Mental: No Existing Living Will: No Existing Power of Certified Paralegal: No Advance Directives Info Given: To Pt/S.O. Discharge Summary Admission HPI Per the Admitting provider: see H&P. Admission Exam Per the Admitting provider: see H&P. Hospital Course (1) Suicide gesture - safety checks - participate in groups - work on healthy coping skills and safety plan - family meeting with girlfriend to review safety concerns 10/13 - self inflicted superficial injury to forearm in context of being told administrative discharge was being recommended. Wounds cleaned and dressed by staff. Will continue to monitor, Patient places on line of sight of staff for safety. 10/14 - Agree with Dr. Alfaro's assessment that pt is voicing conditional SI, is not benefitting from treatment, is not compliant with treatment or following the fall and behavioral contracts he signed on admission, and is not likely to benefit from further inpatient treatment. Agree with administrative discharge. Patient has appealed to Medicare and we will await their determination. In the meantime he has agreed to attend every group and to continue working on healthy coping skills, safety plan, and arrangements in case of discharge. Continue in line of sight observation by staff. (2) Depression 10/06 - Continue Cymbalta 90 mg daily. - Encourage participation in group and individual counseling. According to the contractor, he has signed, he will participate in every group. - Obtain records from and coordinate care with current outpatient providers. - Recommend a therapist. 10/07 - Pt agreeable to therapy referral. 10/08 - Increase Cymbalta to 120 mg daily - Increase Trazodone to 150 mg. for sleep - Arrange family meeting 10/09 - Family meeting held yesterday with Estrella - Continue Cymbalta 120 mg. daily - Reduce Trazodone to 125 mg. due to AM hangover - Panic logs to identify pattern to his anxiety. 10/12 - Second family meeting with Estrella to review safety plan, coping skills he has been working on, and to proceed with discharge. 10/15 - Medicare supports administrative discharge secondary to manipulations of narcotics medications. Will plan on DC tomorrow AM - Patient will remain on [place] supervision to reduce opportunity for pathological acting out. (3) Anxiety 10/06 - Continue home dose of Ativan, being prescribed by [facility]gent [facility] in [place]. - Increase gabapentin to 600 mg t.i.d. 10/08 - Assist the patient to learn and utilize healthy coping strategies (4) Personality disorder Has both antisocial and narcissistic traits The patient has signed a behavioral contract that will guide his behavior here on the unit in view of his past behaviors, which were felt to be disruptive. Assist the patient to learn and utilize additional healthy coping strategies. As per the contract, encourage the patient to use his verbal skills to express his feelings rather than acting them out. 10/09 - Patient clearly wanting to be in the hospital longer than we feel is profitable. By all observations he is happy, laughing and joking with peers at all times and never demonstrates outward distress or anxiety. 10/14 - Continued disruptive and inappropriate behavior, caught cheeking opiate pain medications twice, agree wit administrative discharge, as primary issues are substance abuse and personality disorder, and are not likely to be mitigated by further inpatient treatment. (5) Narcotic dependence Long history of abusing pain pills. Signed ERNESTO for current opiate and benzo prescriber, who is in [place]. [place] drug database shows he is filling controlled substance prescriptions from multiple prescribers across the state. Coordinate with all outpatient prescribers regarding his medications. Encourage daily physical activity as tolerated. 10/12 - patient caught cheeking Roxicodone, room searched, but no other pills found. Concerned that he has not been taking medications appropriately, may be saving them up or taking large quantities. To limit risk of this and try to maximize safety, advised him that the Roxicodone dose would be decreased (to q 12 hours). Staff to do mouth checks with each medication. Patient also advised that he is not following his behavioral contract, and that if he continues to refuse to do so, will be discharged. 10/14 - Again caught trying to pocket pain medication yesterday, so prn opiates discontinued. Called [facility] in [place] where he has gotten his most recent narcotics, and spoke with prescriber Kenia Reynolds to update her on his medication abuse, over-using of prescribed narcotics, and misuse of medications here in the hospital. She stated her supervising physician would likely be seeing him if he followed up there, due to these behaviors. (6) Obesity Encourage healthy diet and weight loss (7) Diabetes 10/06 - Diabetic diet. - Consult dietitian. 10/08 - Encourage exercise (8) BPH (benign prostatic hypertrophy) Continue home medications. Risk Factors Assessment Male: Yes : Yes /single/: No Higher / Fall in social status: No Health problems: Yes Mental Health Diagnoses: Yes Substance use disorders: Yes Previous attempt: No Previous psychiatric stay: Yes Hopelessness: No Smoker: Yes Protective Factors Assessment : No Responsible for young children: No Employed: No Stable relationships: Yes Supportive family: Yes Day of Discharge Assessment The patient presented as alert and cooperative. The patient was casually dressed and groomed. Eye contact was fair. No psychomotor restlessness or agitation was noted. Speech was normal in rate, rhythm, and volume. Affect was mood congruent. The patients mood appeared euthymic. Thought processes were clear, coherent and goal directed without evidence of loose associations or flight of ideas. Thought content/perception was reality based without delusions. The patient denied suicidal and homicidal ideation. The patient denied hallucinations and did not appear to be responding to internal stimuli. Cognition was grossly intact with orientation to person, place and time. Fund of Knowledge/Intelligence were consistent with level of education. Insight and Judgement were improved. Please note that administrative discharge was ordered on 10/14/16 as documented. Patient appealed to Medicare and 10/15/16 received notice that Medicare review supported discharge. While patient was maintained on 1-on-1, more removed from copatients due to behavior he was able to focus on his treatment, suicidal thoughts subsided and he/staff continued to work with Estrella on his home safety plan. PM prior to discharge he was caught trying to hide his prn morphine in his drink. Given concerns about his history of self harm and AMS, risks of respiratory depression in combo with prn benzo (which were reviewed with patient ) and ongoing attempts to misuse prescribed pain meds, a prescription for Narcan was provided. Mr. Milner is stable for discharge to outpatient level of care and has a follow-up appointment with his pain specialist tomorrow. Total Time Total Time Spent (min): Greater than 30 minutes Total Time Included: examination of the patient, discharge planning, medication reconciliation Tobacco Cessation at Discharge FDA approved Prescription: patient refused Problem Qualifiers (1) Depression: Depression Type: major depressive disorder Active/Remission status: currently active Major depression episode severity: severe Psychotic features : without psychotic features (2) Diabetes: Diabetes mellitus type: type 2 Diabetes mellitus complication status: without complication Diabetes mellitus fci insulin use: without fci use Qualified Codes: E11.9 - Type 2 diabetes mellitus without complications
[2016-10-16] MEDS: GUAIFENESIN 600 MG TABCR PO PRN (09:54)
[2016-11-04] MEDS ORDERED: MORP1TAB11 PO (17:06)
[2016-11-07] MEDS ORDERED: SYN25 PO (16:16)
[2016-11-07] MEDS ORDERED: MORP1TAB11 PO (16:16)
[2016-11-07] MEDS ORDERED: LVQ750 PO (16:16)
[2016-11-07] MEDS ORDERED: PRD20 PO (16:16)
[2016-11-07] MEDS ORDERED: OXY/15 PO (16:16)
[2016-12-21] MEDS ORDERED: TAMS0.4C38 PO (10:33)
[2016-12-21] MEDS ORDERED: NAPR500T3 PO (11:14)
[2016-12-21] MEDS ORDERED: DOCU-94 PO (16:26)
[2016-12-21] MEDS ORDERED: TOPI200T20 PO (17:06)
[2016-12-21] MEDS ORDERED: HYDR50CA2 PO (17:06)
[2016-12-21] MEDS ORDERED: SRQ25 PO (17:06)
[2016-12-21] MEDS ORDERED: ATV1 PO (17:06)
[2016-12-21] MEDS ORDERED: TRAZ1TAB5 PO (17:06)
[2016-12-21] MEDS ORDERED: FINA5TAB4 PO (17:06)
[2016-12-21] MEDS ORDERED: OMEP20CA9 PO (17:09)
[2016-12-21] MEDS ORDERED: SUMA1INJ5 INJ (17:56)
[2016-12-21] MEDS ORDERED: DULO60CA44 PO (18:15)
[2016-12-21] MEDS ORDERED: VNTHFA/IN INH (18:15)
[2016-12-21] MEDS ORDERED: MRLP527 PO (19:55)
[2017-01-24] MEDS ORDERED: OXY/15 PO (13:33)
[2017-05-09] MEDS ORDERED: GABA1CAP4 PO (16:07)
== END 2016-10-16 10:47 | disposition home or self-care (01) | DRG 885 ==
LOC: C.EDB 13:48 → C.MHU 17:24
PROVIDERS: ADMIT Psychiatry & Neurology Psychiatry; ATTEND Psychiatry & Neurology Psychiatry
DX: F33.2 Major depressive disorder, recurrent severe without psychotic features (principal); F11.20 Opioid dependence, uncomplicated; R45.851 Suicidal ideations; Z68.41 Body mass index [BMI] 40.0-44.9, adult; F13.20 Sedative, hypnotic or anxiolytic dependence, uncomplicated; E11.9 Type 2 diabetes mellitus without complications; N40.0 Benign prostatic hyperplasia without lower urinary tract symptoms; F60.2 Antisocial personality disorder; J44.9 Chronic obstructive pulmonary disease, unspecified; E66.01 Morbid (severe) obesity due to excess calories; F17.210 Nicotine dependence, cigarettes, uncomplicated; S50.9 Unspecified superficial injury of elbow and forearm; X83.8XXA Intentional self-harm by other specified means, initial encounter; Y92.239 Unspecified place in hospital as the place of occurrence of the external cause; F41.9 Anxiety disorder, unspecified; G89.29 Other chronic pain; F60.81 Narcissistic personality disorder; G43.909 Migraine, unspecified, not intractable, without status migrainosus; Z76.5 Malingerer [conscious simulation]; M54.9 Dorsalgia, unspecified; Z91.19 Patient's noncompliance with other medical treatment and regimen; Z72.89 Other problems related to lifestyle; Z86.711 Personal history of pulmonary embolism; Z87.820 Personal history of traumatic brain injury; Z79.51 Long term (current) use of inhaled steroids; Z79.899 Other long term (current) drug therapy

== ENCOUNTER 2016-11-04 17:06 | Inpatient (IN) | payer OTHER ==
[~2016-11-04] VITALS: Ht 182.9 cm; Wt 148.9 kg
[~2016-11-04 17:06] MED LIST changes: -CYM/30 PO; -GABA1CAP4 PO; +MORP1TAB11 PO; +NALO1SPR INTNAS; -ONDA4TAB46 PO; -OXY/15 PO
[2016-11-04] MEDS ORDERED: ONDANSETRON INJ 2 MG/ML 2 ML VIAL IV STA (17:41)
[2016-11-04] MEDS ORDERED: SODIUM CHLORIDE 0.9% 1000ML 1,000 ML IV STA ×2 (17:41→20:08)
--- NOTE | 2016-11-04 17:59 | EMERGENCY ROOM VISIT NOTE ---
History Report prepared by Alek: Rachel Leyva Under the Supervision of: Dr. Stanton Dyer D.O. First contact with patient: 17:31 Chief Complaint: OVERDOSE (INTENTIONAL) Stated Complaint: SUICIDAL THOUGHTS, DRANK WINDEX HALF HR AGO History of Present Illness The patient is a 46 year old male who presents to the Emergency Room with complaints of a sudden intentional overdose that occurred one hour ago. The patient states that he has been increasingly suicidal over the past month. He states that he drank Windex one hour ago today because he does not want to be around anymore. The patient's states that the patient feels that no one cares if he is around or not. The patient states that he was last evaluated in [facility] one month ago. He states that his Cymbalta dosage was increased, but states that he does not feel that the medication is working. The patient states that he was initially compliant with his medication upon discharge from the hospital, but states that he has not been compliant with his medications recently. He states that one hour prior to arrival he drank Windex, but denies taking any alcohol or medications with it. The patient states that he is still having thoughts of wanting to hurt himself. He notes nausea since the incident , but denies any vomiting. The patient denies any auditory hallucinations. Source of History: patient Onset: one hour ago Position: other (global) Quality: other (intentional overdose) Timing: other (sudden) Associated Symptoms: + nausea, No vomiting Note: Associated symptoms: suicidal ideation Review of Systems See HPI for pertinent positives & negatives. A total of 10 systems reviewed and were otherwise negative. Past Medical & Surgical Medical Problems: (1) Anxiety (2) Anxiety and depression (3) BPH (benign prostatic hypertrophy) (4) Chronic pain syndrome (5) COPD, moderate (6) Diabetes (7) Narcotic dependence (8) Obesity (9) Personality disorder (10) Positive blood culture (11) Pulmonary embolism (12) Suicidal ideation (13) Urinary retention Surgical Problems: (1) History of back surgery Family History Cancer Diabetes mellitus Heart disease Kidney disease Kidney stones Lung disease Social History Smoking Status: Current Every Day Smoker Alcohol Use: none Drug Use: none Marital Status: in relationship Housing Status: lives with family, retirement Occupation Status: disabled Current/Historical Medications Scheduled Duloxetine Hcl (Cymbalta), 120 MG PO DAILY Finasteride (Proscar), 5 MG PO DAILY Gabapentin (Neurontin), 600 MG PO TID Hydroxyzine Pamoate (Vistaril), 50 MG PO BID Morphine Sulfate (Morphine Sulfate Er), 15 MG PO Q8 Omeprazole (Prilosec), 20 MG PO DAILY Oxycodone Hcl (Oxycodone Hcl), 15 MG PO 5XD Quetiapine Fumarate (Quetiapine Fumarate), 25 MG PO BID Tamsulosin Hcl (Flomax), 0.4 MG PO DAILY Topiramate (Topamax), 200 MG PO HS Trazodone Hcl (Desyrel), 100 MG PO HS Scheduled PRN Albuterol Hfa (Ventolin Hfa), 2 PUFFS INH QID PRN for SOB/Wheezing Budesonide/Formoterol Fumarate (Symbicort 80/4.5 Inhaler), 1 PUFF INH BID PRN for COPD Cyclobenzaprine HCl (Cyclobenzaprine HCl), 10 MG PO HS PRN for Muscle Spasm Docusate Sodium (Colace), 100 MG PO BID PRN for Constipation Lorazepam (Lorazepam), 1 MG PO BID PRN for Anxiety Ondansetron (Ondansetron HCl), 4 MG PO QID PRN for Nausea or Vomiting Polyethylene (Polyethylene Glycol 3350), 1 DOSE PO DAILY PRN for Constipation Sumatriptan Succinate (Sumatriptan Succinate), 6 MG INJ UD PRN for Migraine Allergies Coded Allergies: Fentanyl (Verified Allergy, Intermediate, RASH/HIVES/SKIN REDNESS, 10/05/16 ) FROM PATCH ONLY Valproic Acid (Verified Adverse Reaction, Intermediate, PANCREATITIS, 10/05) Valproic Acid and Related (Verified Adverse Reaction, Intermediate, PANCREATITS, 10/05/16) Physical Exam Vital Signs Date Time Temp Pulse Resp B/P Pulse Ox O2 Delivery O2 Flow Rate FiO2 11/04/16 20:21 79 18 107/70 95 Room Air 11/04/16 20:16 88 15 94 11/04/16 20:11 76 18 95 11/04/16 20:06 85 15 95 11/04/16 20:05 142/58 11/04/16 20:01 79 16 94 11/04/16 19:58 107/70 11/04/16 19:56 89 16 93 11/04/16 19:51 88 16 93 11/04/16 19:46 89 20 94 11/04/16 19:41 84 12 96 11/04/16 19:36 84 18 95 11/04/16 19:31 88 16 95 11/04/16 19:26 89 22 96 11/04/16 19:21 82 18 94 11/04/16 19:16 82 13 95 11/04/16 19:11 81 14 94 11/04/16 19:06 80 16 94 11/04/16 19:01 77 19 93 11/04/16 18:59 126/77 11/04/16 18:56 82 14 92 11/04/16 18:51 72 15 94 11/04/16 18:49 94 Room Air 11/04/16 18:46 78 12 95 11/04/16 18:41 80 20 94 11/04/16 18:36 72 17 96 11/04/16 18:31 82 17 94 11/04/16 18:26 80 16 94 11/04/16 18:21 85 19 95 11/04/16 18:16 86 15 95 11/04/16 18:11 89 15 94 11/04/16 18:07 76 11/04/16 18:06 73 19 94 11/04/16 17:59 76 17 129/78 92 Room Air 11/04/16 17:58 129/78 11/04/16 17:52 92 Room Air 11/04/16 17:15 36.9 91 20 147/87 99 Room Air Physical Exam GENERAL: Patient is awake, alert, anxious appearing, appears to be quiet and guarded. EYES: The conjunctivae are clear. The pupils are round and reactive. EARS, NOSE, MOUTH AND THROAT: The nose is without any evidence of any deformity. Mucous membranes are moist tongue is midline NECK: The neck is nontender and supple. RESPIRATORY: Normal respiratory effort is noted there is no evidence of wheezing rhonchi or rales CARDIOVASCULAR: Regular rate and rhythm noted there no murmurs rubs or gallops normal S1 normal S2 GASTROINTESTINAL: The abdomen is soft. Bowel sounds are present in all quadrants. Abdomen is nontender MUSCULOSKELETAL/EXTREMITIES: There is no evidence of gross deformity full range of motion is noted in the hips and shoulders SKIN: There is no obvious evidence of any rash. There are no petechiae, pallor or cyanosis noted. NEUROLOGIC: Patient is awake alert and oriented x3 strength is symmetric patellar reflexes are 2+ bilaterally PSYCH: Affect is flat. Patient makes poor eye contact and at times tearful. Currently admits to suicidal ideation. Medical Decision & Procedures ER Provider Diagnostic Interpretation: X-ray results as stated below per interpretation by me and the radiologist. CHEST ONE VIEW PORTABLE CLINICAL HISTORY: Overdose dyspnea COMPARISON STUDY: 10/05/2016 FINDINGS: Vague poorly defined parenchymal infiltrate right upper lung and to lesser extent left base. Lungs otherwise appear clear. No evidence for cardiac enlargement. IMPRESSION: Patchy parenchymal infiltrative change right upper lung and left base Electronically signed by: Owen Flowers M.D. 11/04/2016 6:14 PM Dictated Date/Time: 11/04/2016 6:13 PM Laboratory Results 11/04/16 18:05 Red Blood Count 4.78, Mean Corpuscular Volume 78.7, Mean Corpuscular Hemoglobin 27.0, Mean Corpuscular Hemoglobin Concent 34.3, Mean Platelet Volume 9.9, Neutrophils (%) (Auto) 72.8, Lymphocytes (%) (Auto) 17.9, Monocytes (%) (Auto) 7.2, Eosinophils (%) (Auto) 0.9, Basophils (%) (Auto) 0.3, Neutrophils # (Auto) 11.00, Lymphocytes # (Auto) 2.70, Monocytes # (Auto) 1.09, Eosinophils # (Auto) 0.14, Basophils # (Auto) 0.05 11/04/16 18:05 Test 11/04/16 18:00 11/04/16 18:05 Urine Color DK YELLOW Urine Appearance CLEAR (CLEAR) Urine pH 6.0 (4.5-7.5) Urine Specific [place] 1.025 (1.000-1.030) Urine Protein NEG (NEG) Urine Glucose (UA) NEG (NEG) Urine Ketones NEG (NEG) Urine Occult Blood NEG (NEG) Urine Nitrite NEG (NEG) Urine Bilirubin NEG (NEG) Urine Urobilinogen NEG (NEG) Urine Leukocyte Esterase NEG (NEG) Urine Opiates Screen POS (NEG) Urine Methadone, Qualitative NEG (NEG) Urine Barbiturates NEG (NEG) Urine Phencyclidine (PCP) Level NEG (NEG) Ur Amphetamine/Methamphetamine NEG (NEG) MDMA (Ecstasy) Screen POS (NEG) Urine Benzodiazepines Screen NEG (NEG) Urine Cocaine Metabolite NEG (NEG) Urine Marijuana (THC) NEG (NEG) Ethyl Alcohol mg/dL < 3.0 mg/dl (0-3) White Blood Count 15.11 K/uL (4.8-10.8) Red Blood Count 4.78 M/uL (4.7-6.1) Hemoglobin 12.9 g/dL (14.0-18.0) Hematocrit 37.6 % (42-52) Mean Corpuscular Volume 78.7 fL (80-100) Mean Corpuscular Hemoglobin 27.0 pg (25-34) Mean Corpuscular Hemoglobin Concent 34.3 g/dl (32-36) Platelet Count 364 K/uL (130-400) Mean Platelet Volume 9.9 fL (7.4-10.4) Neutrophils (%) (Auto) 72.8 % Lymphocytes (%) (Auto) 17.9 % Monocytes (%) (Auto) 7.2 % Eosinophils (%) (Auto) 0.9 % Basophils (%) (Auto) 0.3 % Neutrophils # (Auto) 11.00 K/uL (1.4-6.5) Lymphocytes # (Auto) 2.70 K/uL (1.2-3.4) Monocytes # (Auto) 1.09 K/uL (0.11-0.59) Eosinophils # (Auto) 0.14 K/uL (0-0.5) Basophils # (Auto) 0.05 K/uL (0-0.2) RDW Standard Deviation 45.6 fL (36.4-46.3) RDW Coefficient of Variation 15.9 % (11.5-14.5) Immature Granulocyte % (Auto) 0.9 % Immature Granulocyte # (Auto) 0.13 K/uL (0.00-0.02) Prothrombin Time 12.0 SECONDS (9.0-12.0) Prothromb Time International Ratio 1.1 (0.9-1.1) Activated Partial Thromboplast Time 28.5 SECONDS (21.0-31.0) Partial Thromboplastin Ratio 1.1 Anion Gap 10.0 mmol/L (3-11) Est Creatinine Clear Calc Drug Dose 154.7 ml/min Estimated GFR () 118.8 Estimated GFR (Non- 102.5 BUN/Creatinine Ratio 12.2 (10-20) Osmolality 294 mOsm/kg (280-300) Calcium Level 8.9 mg/dl (8.5-10.1) Magnesium Level 1.9 mg/dl (1.8-2.4) Total Bilirubin 0.5 mg/dl (0.2-1) Direct Bilirubin 0.1 mg/dl (0-0.2) Aspartate Amino Transf (AST/SGOT) 9 U/L (15-37) Alanine Aminotransferase (ALT/SGPT) 17 U/L (12-78) Alkaline Phosphatase 79 U/L (45-117) Total Creatine Kinase 74 U/L (39-308) Total Protein 6.9 gm/dl (6.4-8.2) Albumin 2.7 gm/dl (3.4-5.0) Lipase 123 U/L (73-393) Salicylates Level < 1.7 mg/dl (2.8-20) Acetaminophen Level < 2 ug/ml (10-30) Laboratory results per my review. Medications Administered Medications (Trade) Dose Ordered Sig/Amalia Route Start Time Stop Time Status Last Admin Dose Admin Sodium Chloride (Nss 1000ml) 1,000 ml @ 999 mls/hr Q1H1M STAT IV 11/04/16 17:41 11/04/16 18:41 DC 11/04/16 18:44 999 MLS/HR Ondansetron HCl (Zofran Inj) 4 mg NOW STAT IV 11/04/16 17:41 11/04/16 17:43 DC 11/04/16 18:42 4 MG Levofloxacin (Levaquin Tab) 750 mg NOW STAT PO 11/04/16 19:18 11/04/16 19:19 DC 11/04/16 19:24 750 MG Lorazepam (Ativan Tab) 1 mg NOW STAT SL 11/04/16 19:18 11/04/16 19:19 DC 11/04/16 19:24 1 MG Ketorolac Tromethamine 30 mg 30 mg NOW STAT IV 11/04/16 20:08 11/04/16 20:09 DC 11/04/16 20:28 30 MG Sodium Chloride (Nss 1000ml) 1,000 ml @ 250 mls/hr Q4H STAT IV 11/04/16 20:08 11/04/16 20:25 DC 11/04/16 20:24 250 MLS/HR ED Course 174: The patient was evaluated in room C6. A complete history and physical examination were performed. 1740: Ordered Zofran Inj 4 mg IV, Sodium Chloride 1000 ml @ 999 mls/hr IV. 1854: Per poison control, they note that normally after ingesting Windex, the patient will vomit immediately. They note that if the patient can drink water, then he probably did not ingest any of the Windex. 1917: Ordered Ativan Tab 1 mg SL, Levaquin Tab 750 mg PO. 2007: Ordered Sodium Chloride 1000 ml @ 250 mls/hr IV, Toradol inj 30 mg IV. 2009: I reevaluated the patient and he is resting comfortably. I discussed the exam findings with him and I discussed the treatment plan. He verbalized complete understanding and agreement. He is going to be evaluated for further treatment. 2019: I discussed the patient's case with Gilda Mancilla. He is going to evaluate the patient for further treatment. Medical Decision Differential diagnosis: Etiologies such as mood disorder, infection, hypoglycemia, electrolyte abnormalities, cardiac sources, intracerebral event, toxicologic, neurologic, as well as others were entertained. Nursing notes reviewed. The patient is a 46-year-old male who presented to the emergency department for an evaluation of cough as well as depression and suicidal ideation. The patient states that he drank windows 7 deployment lead in an attempt to hurt himself. He has done similar things in the past. The patient presented mostly for a mental evaluation but also complained of cough. He did not appear septic. His white blood cell count was elevated and he was found have signs of infiltrate on chest x-ray. The patient was unable to be medically cleared in the emergency department for formal mental health evaluation and possible admission. I did discuss his case with the emergency Department mental health nurse outreach case manager but given the patient's other medical findings I also discussed his case with the on -call [facility] hospitalist group. He has agreed to evaluate the patient in emergency apartment for further management and disposition. The patient was treated with IV fluids IV pain medication anxiety medication as well as antibiotics for pneumonia. On subsequent reevaluation was feeling much better. Consults Time Called: 1836 Consulting Physician: Poison Control Returned Call: 1854 Per poison control, they note that normally after ingesting Windex, the patient will vomit immediately. They note that if the patient can drink water, then he probably did not ingest any of the Windex. Additional Consults: Time Called: 2014 Consulted Physician: Gilda Mancilla Returned Call: 2019 Additional Comments: I discussed the patient's case with Gilda Mancilla. He is going to evaluate the patient for further treatment. Impression Primary Impression: Bilateral pneumonia Additional Impressions: Suicidal ideation Suicide gesture Depression Scribe Attestation The scribe's documentation has been prepared under my direction and personally reviewed by me in its entirety. I confirm that the note above accurately reflects all work, treatment, procedures, and medical decision making performed by me. Departure Information Dispostion Being Evaluated By Hospitalist Referrals Tesha Loredo M.D. (MEDICAL) (PCP) Problem Qualifiers
[2016-11-04] MEDS ORDERED: OXY/15 PO (18:15)
--- NOTE | 2016-11-04 18:15 | DIAGNOSTIC IMAGING REPORT ---
CHEST ONE VIEW PORTABLE CLINICAL HISTORY: Overdose dyspnea COMPARISON STUDY: 10/05/2016 FINDINGS: Vague poorly defined parenchymal infiltrate right upper lung and to lesser extent left base. Lungs otherwise appear clear. No evidence for cardiac enlargement. IMPRESSION: Patchy parenchymal infiltrative change right upper lung and left base Electronically signed by: Owen Flowers M.D. 11/04/2016 6:14 PM Dictated Date/Time: 11/04/2016 6:13 PM
[2016-11-04 18:25] LABS: URINE APPEARANCE CLEAR (CLEAR); URINE BILIRUBIN NEG (NEG); URINE COLOR DK YELLOW; URINE NITRITE NEG (NEG); URINE SPECIFIC GRAVITY 1.025 (1.000-1.030); UROBILINOGEN NEG (NEG)
[2016-11-04 18:34] LABS: MANUAL MICROSCOPIC REQUIRED? NO; REVIEW REQ? NO
[2016-11-04 18:35] LABS: BASO % 0.3 %; BASO ABS # 0.05 K/uL (0-0.2); COMPLETE YES; EOS % 0.9 %; HEMATOCRIT 37.6 % (42-52); IG% 0.9 %; LYMPH % 17.9 %; MEAN CELL VOLUME 78.7 fL (80-100); MEAN CORPUSCULAR HGB CONC 34.3 g/dl (32-36); MEAN PLATELET VOLUME 9.9 fL (7.4-10.4); MONO % 7.2 %; NEUT % 72.8 %; PLATELET COUNT 364 K/uL (130-400); RED BLOOD COUNT 4.78 M/uL (4.7-6.1); WHITE BLOOD COUNT 15.11 K/uL (4.8-10.8)
[2016-11-04 18:47] LABS: INR 1.1 (0.9-1.1); PARTIAL THROMBOPLASTIN RATIO 1.1
[2016-11-04 18:59] LABS: BUN/CREATININE RATIO 12.2 (10-20); CALCIUM 8.9 mg/dl (8.5-10.1); CREATININE 0.89 mg/dl (0.60-1.40); POTASSIUM 3.2 mmol/L (3.5-5.1)
[2016-11-04 19:02] LABS: BENZODIAZEPINE, URINE NEG (NEG); COCAINE,URINE NEG (NEG); PHENCYCLIDINE, URINE NEG (NEG)
[2016-11-04 19:13] LABS: ACETAMINOPHEN < 2 ug/ml (10-30)
[2016-11-04] MEDS ORDERED: LEVOFLOXACIN 250 MG TAB PO STA (19:18)
[2016-11-04] MEDS ORDERED: LORAZEPAM 1 MG TAB SL STA (19:18)
[2016-11-04] MEDS ORDERED: KETOROLAC TROMETHAMINE 30 MG/ML VIAL IV STA (20:08)
[2016-11-04] MEDS ORDERED: POTASSIUM CHLORIDE 10 MEQ TABCR PO STA (20:24)
[2016-11-04] MEDS ORDERED: LACTATED RINGER'S 1000ML 1,000 ML IV SCH (20:30)
[2016-11-04] MEDS ORDERED: OXYCODONE HCL IR 5 MG TAB (IMMEDIATE RELEASE) PO ONE (21:01)
[2016-11-04] MEDS ORDERED: ONDANSETRON 4 MG TAB PO PRN (21:15)
[2016-11-04] MEDS ORDERED: OPTIRAY 320 IV PRN (21:15)
[2016-11-04 21:24] VITALS: Ht 182.9 cm; Wt 148.9 kg
--- NOTE | 2016-11-04 21:39 | DIAGNOSTIC IMAGING REPORT ---
ABDOMEN AND PELVIS CT WITH IV CONTRAST CT DOSE: 1637.19 mGy.cm HISTORY: Pain R abd pain; hx toxic ingestion TECHNIQUE: Multiaxial CT images of the abdomen and pelvis were performed following the use of intravenous contrast. COMPARISON STUDY: 07/01/2016 FINDINGS: Mild bibasilar atelectatic change. Minimal right middle lobe infiltrative change. Liver is uniform. Gallbladder is contracted. Small hiatal hernia. Spleen is uniform. Pancreas shows partial fatty replacement. Kidneys negative for hydronephrosis or obstructive change. Nonobstructive 4 mm cortical calcification right kidney unchanged in the prior study. Bowel pattern is nonobstructive throughout. Bladder is midline. No evidence for mass or collection. IMPRESSION: 1. Minimal right middle lobe infiltrative process. 2. Mild bibasilar atelectasis. 3. Otherwise negative abdomen and pelvis Electronically signed by: Owen Flowers M.D. 11/04/2016 9:38 PM Dictated Date/Time: 11/04/2016 9:35 PM
[2016-11-04] MEDS ORDERED: OXYCODONE HCL IR 5 MG TAB (IMMEDIATE RELEASE) ONE (21:59)
[2016-11-04] MEDS ORDERED: LEVALBUTEROL/IPRATROPIUM NEB INH STA (22:24)
[2016-11-04] MEDS ORDERED: GLUCOSE 10 TABS/TUBE PO PRN (22:30)
[2016-11-04] MEDS ORDERED: LEVALBUTEROL/IPRATROPIUM NEB INH PRN (22:30)
[2016-11-04] MEDS ORDERED: GLUCAGON FOR INJ 1 MG VIAL SQ PRN (22:30)
[2016-11-04] MEDS ORDERED: GLUCOSE 40% GEL 15 GM TUBE PO PRN (22:30)
[2016-11-04] MEDS ORDERED: DEXTROSE 50% 50 ML SYR IV PRN (22:30)
[2016-11-04] MEDS ORDERED: ACETAMINOPHEN 325 MG TAB PO PRN (22:30)
[2016-11-04] MEDS ORDERED: ONDANSETRON INJ 2 MG/ML 2 ML VIAL IV PRN (22:45)
[2016-11-05] VITALS (11 sets, daily range): BP systolic 121–167; BP diastolic 80–91; PULSE 73–99; TEMP 36.3–37.6; O2SAT 91–98
[2016-11-05] MEDS ORDERED: LACTATED RINGER'S 1000ML 1,000 ML IV ONE (00:45)
[2016-11-05] MEDS ORDERED: LEVALBUTEROL 1.25MG/0.5ML NEB INH STA (00:46)
[2016-11-05] MEDS ORDERED: IPRATROPIUM BROMIDE NEB SOLN 0.02% 2.5 ML VIAL INH STA (00:46)
[2016-11-05] MEDS ORDERED: DOCUSATE SODIUM 100 MG CAP PO PRN (01:00)
[2016-11-05] MEDS ORDERED: LACTOBACILLUS ACIDOPHILUS (FLORANEX) TAB PO ONE (01:00)
[2016-11-05] MEDS ORDERED: LEVALBUTEROL 1.25MG/0.5ML NEB INH PRN (01:00)
[2016-11-05] MEDS ORDERED: POLYETHYLENE (MIRALAX) 17 GM PACK PO PRN (01:00)
[2016-11-05] MEDS ORDERED: IPRATROPIUM BROMIDE NEB SOLN 0.02% 2.5 ML VIAL INH PRN (01:00)
[2016-11-05] MEDS ORDERED: LEVOFLOXACIN CONSULT ACTIVE PRN (01:00)
--- NOTE | 2016-11-05 01:43 | HISTORY & PHYSICAL EXAMINATION ---
DATE OF ADMISSION: 11/04/2016 PRIMARY CARE DOCTOR: Dr. Facundo Mejia obtained from px and records. CHIEF COMPLAINT: Windex ingestion. HISTORY OF PRESENT ILLNESS: Medical history is significant for mood disorder, COPD, ongoing tobacco abuse, chronic pain on narcotics, history of PE status post anticoagulation, chronic anemia baseline hemoglobin 12-13, DM2, diet-controlled. hx recurrent cdif [facility] September 2016. In the last few days, patient noted increasing stress due to impending eviction from trailer home. Today, he drank about a cup of Windex cleaning solution. He denies chest pain, dysphagia, sore throat, shortness of breath. Px also noted achy right upper quadrant discomfort. no nausea, no vomiting. Junky cough symptoms in the last few days more than usual. No fever, no chills. He denies aspiration. possible sick contacts. Patient received Levaquin in the Emergency Room for pneumonia. [facility] unable to accept px for Psych admission as per ER MD. MEDICAL HISTORY: As above. SURGERIES: He has had foot toe surgery, nerve repair, tendon repair, hand repair. Scalp neck wound injury. HOME MEDICATIONS: Include; Ventolin, Symbicort, cyclobenzaprine, Colace, Cymbalta, Proscar, Zofran, Propylene glycol, quetiapine, sumatriptan, Flomax, Topamax, Desyrel, gabapentin, Desyrel, lorazepam, morphine sulfate ER, Prilosec and oxycodone. ALLERGIES: TO FENTANYL AND VALPROIC ACID. FAMILY HISTORY: Heart disease. PERSONAL AND SOCIAL HISTORY: One pack daily. No chronic intake of alcoholic beverages. Disabled. REVIEW OF SYSTEMS: As per HPI, all other ROS negative. PHYSICAL EXAMINATION: VITAL SIGNS: Blood pressure was noted to be130/80, pulse rate 91, RR 20, temperature 36.6 sats 98 on room air. GENERAL: Noted to be obese, looks older for stated age. No acute distress. SKIN: Pallor. HEENT: Partial alopecia. Pale palpebral conjunctivae, dry mucosa NECK: Short. LUNGS: Expiratory wheezes. HEART: Regular rate and rhythm. ABDOMEN: Some tenderness on the RUQ. EXTREMITIES: No edema, no tenderness. NEUROLOGIC: No gross focality. LABORATORY DATA: Hemoglobin was noted to be 12.9, hematocrit 37.6, white cell 15.11, platelets 254. Sodium 130, potassium 3.2, chloride 108, CO2 25, crea 1, glucose was noted to be 85. HgA1c 5.6 (02/2016) Chest x-ray showed patchy parenchymal infiltrative change right upper lung, left base. CT abdomen and pelvis showed minimal right middle lobe infiltrative process. no acute abd path ASSESSMENT AND PLAN: 1. Community-acquired pneumonia no sepsis. 2. Household chemical (Windex) ingestion 2 to suicidality px clinically well No need for inpx obs as per Toxicology. 3. mood disorder suboptimal state. [facility] unable to accept px as per ER MD/Case Management w/ concurrent pneumonia. Will need placement. 4. Chronic pain on narcotics. hx drug seeking behavior as per records 5. Chronic obstructive pulmonary disease, ongoing tobacco abuse. chronic wheezing on exam. The patient denies shortness of breath. 6. History of PE, status post anticoagulation. 7. Chronic anemia, hemoglobin at baseline. range of 12-14 the past year 8. hx recurrent cdif sp tx 9. hypokalemia 10. DM2 diet controlled, well controlled as of recent HgA1c GMF Levaquin course. Nebs. RTC p.r.n. Nicotine patch. Psych consult RE suicidality Suicide watch until further orders from Psych. Social Service RE dc planning replace K ISS BG goal 140-180 DVT prophylaxis, Lovenox subcu. Full code. MTDD
[2016-11-05] MEDS: MoRPHine SULFATE CR 15 MG TAB (MS CONTIN) PO SCH ×4 (01:46→22:42)
[2016-11-05] MEDS: IPRATROPIUM BROMIDE NEB SOLN 0.02% 2.5 ML VIAL INH SCH ×4 (03:00→20:53)
[2016-11-05] MEDS: LEVALBUTEROL 1.25MG/0.5ML NEB INH SCH ×4 (03:00→20:53)
[2016-11-05] MEDS ORDERED: LEVALBUTEROL/IPRATROPIUM NEB INH SCH (03:00)
[2016-11-05] MEDS: LACTOBACILLUS ACIDOPHILUS (FLORANEX) TAB PO SCH ×3 (07:43→17:19)
[2016-11-05] MEDS: OXYCODONE HCL IR 5 MG TAB (IMMEDIATE RELEASE) PO PRN ×5 (07:44→21:00)
[2016-11-05 08:36] LABS: BASO % 0.3 %; BASO ABS # 0.03 K/uL (0-0.2); COMPLETE YES; EOS % 1.2 %; HEMATOCRIT 34.3 % (42-52); LYMPH ABS # 2.27 K/uL (1.2-3.4); MEAN CORPUSCULAR HEMOGLOBIN 26.6 pg (25-34); MEAN CORPUSCULAR HGB CONC 34.1 g/dl (32-36); MEAN PLATELET VOLUME 9.4 fL (7.4-10.4); MONO % 7.9 %; NEUT % 70.6 %; PLATELET COUNT 308 K/uL (130-400); WHITE BLOOD COUNT 11.97 K/uL (4.8-10.8)
[2016-11-05 09:15] LABS: BUN/CREATININE RATIO 10.3 (10-20); CALCIUM 8.7 mg/dl (8.5-10.1); CREATININE 0.9 mg/dl (0.60-1.40); POTASSIUM 3.7 mmol/L (3.5-5.1)
[2016-11-05] MEDS: INSULIN ASPART 100 UNITS/ML 3 ML PEN SC SCH ×4 (09:26→21:00)
[2016-11-05] MEDS: DULOXETINE HCL 60 MG CAP PO SCH (09:29)
[2016-11-05] MEDS: FINASTERIDE 5 MG TAB PO SCH (09:30)
[2016-11-05] MEDS: QUETIAPINE FUMARATE 25 MG TAB PO SCH ×2 (09:30→22:43)
[2016-11-05] MEDS: GABAPENTIN 600 MG TAB PO SCH ×3 (09:30→22:41)
[2016-11-05] MEDS: TAMSULOSIN HCL 0.4 MG CAP PO SCH (09:30)
[2016-11-05] MEDS: NICOTINE 21 MG/24 HR TDSY TD SCH (09:31)
[2016-11-05] MEDS: ENOXAPARIN 40 MG/0.4 ML SYR SQ SCH (09:31)
[2016-11-05] MEDS: LORAZEPAM 1 MG TAB PO PRN ×2 (09:31→23:25)
--- NOTE | 2016-11-05 15:38 | CONSULTATION REPORT ---
DATE OF CONSULTATION: 11/05/2016 IDENTIFYING DATA: Stanton Milner is a 46-year-old gentleman from [place], [place], admitted to the medical floor with pneumonia after having presented to the Emergency Room with severe depression, suicidality and reports that he ingested Windex in a suicide attempt. We are consulted to evaluate overdose. Information is gathered from the patient, the patient's significant other Estrella, the electronic medical record and considered to be reliable. 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 Bill was last on our mental health unit in September of this year. He was admitted with depression after a toxic ingestion in a suicide attempt. Stressors included the fact that they were being evicted from their home, ongoing chronic pain and ongoing depression. During that hospitalization, the patient would not abide by the behavioral contract developed by the hospital, specifically he was not willing to ring his muhammad for assistance when up. He has a behavioral contract because of multiple falls, some perceived as intentional, over the last several hospitalizations while on the medical floor. Also, during his hospitalization, he was found multiple times to be sequestering his medications, either checking them or putting them in his pocket and was confronted. He has a history of abusing his narcotics. We sought administrative discharge due to his diverting medications and lack of compliance with the treatment program. He did appeal to Medicare. Medicare agreed to administrative discharge. Prior to his discharge, he was set up with aftercare appointments occurring within 1 week of discharge. The patient was able to get [facility] to make his pain management appointment on October 17 and I do see prescriptions for narcotics from that clinic on October 17. He did not, however, attend any of his appointments on October 19 or October 20 for mental health treatment. At the time I see the patient, he is lying in his bed, watching TV with a 1:1 sitter at the bedside. He indicates that they were served with papers from [place] yesterday indicating that they needed to be out immediately. The patient said that he could not take it and felt that others would be better off without him. He said after discharge he had done okay for a while, but then "I got thrown back into life." He is still living in the house with his significant other of 17 years, Estrella, Estrella's daughter and 2 children, ages 12 and 9 months. He says that he has not been feeling well physically, having trouble breathing and ongoing complaints of depression. When asked about followup appointments, he indicates that his Dr. Page appointment was not until Wednesday and he had not seen a therapist. I pull up the information from the computer to remind him that this appointments had been scheduled for the end of September and he has no answer for this. He indicates that he was feeling depressed, drank a cup or 2 of Windex and then called for Estrella to tell her what he had done. He indicates Estrella was screaming and yelling at him afterwards, with angry that he had made another attempt on his life. He admitted that he could not promise her that he would be safe and so, Estrella brought him to the Emergency Room. He indicates that since discharge from our unit, his sleep has been "off and on" and does routinely nap during the day. His appetite has been "pretty good." His energy is low. His anxiety is "terrible" and has panic attacks that generally happen at night. He reports chronic suicidal ideation, saying "it is always there." He denies hallucinations. I have spoken with his significant other, Estrella by phone at [phone]. She confirms that they were once again served notification that they needed to be out immediately. They were also received notice 1 week ago that they had to be out. She indicates that she got served the papers and went back to tell Bill and had asked him to please not overreact and not do anything rash. He told her that he did not want to live and that they would be better off without him. She checked on him later thinking something was wrong, he said that there was not. He later called her from the bathroom, telling her that he drank Windex. She admits that she "screamed and hollered" at him. She is under significant stress herself, was tearful throughout the interview, saying she cannot take it any longer. She says that she will not have him back in her home, not because she does not love him, but because she cannot watch him continue to try to commit suicide. She indicates that he drank the Windex at around 04:30 p.m. yesterday and that other children were home. She has been trying to find alternate housing arrangements for them, but cannot find one that will accept the animals and she is unwilling at this time to go without her animals. She does say that her daughter and children have found another place to live, had indicated that she can come and stay with them, but Bill cannot. She also indicates last night after the overdose, she called some of Bill's family members to request help and assistance; however, they would not. She also says that his family accused them of having problems because they both are narcotics. She became quite angry and tells me that when she went home, she flushed all of his narcotics and all of her narcotics down the toilet. She feels extremely upset, scared, not knowing where to turn as she has no support from her own family nor from his. The patient continues to endorse suicidal thinking at this time. He did not report that he would not be allowed to return to the home, which from Estrella's conversation, he knew prior to coming to the hospital. CURRENT MEDICATIONS: 1. Topamax 200 at bedtime. 2. Trazodone 100 at bedtime. 3. Levofloxacin. 4. Cymbalta 120 daily. 5. Proscar 5 mg daily. 6. Neurontin 600 mg t.i.d. 7. Seroquel 25 b.i.d. 8. Flomax 0.4 mg daily. 9. Lovenox 40 mg q. 24 hours. 10. Nicoderm patch 21 mg. 11. Floranex 4 tabs t.i.d. with meals. 12. Insulin sliding scale. 13. Atrovent and Xopenex nebulizers q. 6 hours. 14. Colace 100 mg b.i.d. p.r.n. constipation. 15. Oramorph 15 mg q. 8 hours. 16. MiraLax p.r.n. 17. Flexeril 10 mg at bedtime p.r.n. muscle spasms. 18. Ativan 1 mg b.i.d. p.r.n. anxiety. 19. Oxycodone 5 mg 5 times per day p.r.n. pain. PAST PSYCHIATRIC HISTORY: The patient is scheduled to see Dr. Page, but has not gone to appointments, he has not been seen there since perhaps early July of last year. He has had previous mental health hospitalizations on our mental health unit, the [facility] and at [facility]. He has made 2 suicide attempts in the past. He denies any evidence of violence to others in the last 6 months, only himself by way of suicide attempts and cutting his arm. PRIOR MEDICATION TRIALS: 1. Wellbutrin -- did not work. 2. Higher doses of Cymbalta, which did not work. 3. Effexor -- did not work. ACCESS TO GUNS: Denies. ALLERGIES: 1. FENTANYL PATCH -- RASH. 2. DEPAKOTE -- PANCREATITIS. PAST MEDICAL HISTORY: 1. Class 3 obesity with a current BMI of 43.8. 2. COPD. 3. Chronic back and neck pain. 4. BPH. 5. History of PE. 6. History of multiple falls in the hospital, which were felt in part to be volitional and therefore, has a contract with the hospital that he is not ambulate without an attendant. 7. Tobacco use disorder -- currently smoking 2 packs of cigarettes daily. 8. Migraines. 9. Type 2 diabetes. 10. Denies for personal history of cardiovascular disease, dyslipidemia or hypertension. FAMILY HISTORY: Denies for psychiatric issues, substance use or suicide. Medically, grandmother had diabetes, both grandfathers have had MIs, aunts and uncles are obese, no family history for hypertension or dyslipidemia. SUBSTANCE ABUSE HISTORY: In the last year, the patient denies the use of alcohol, street drugs, organic substances, inhalant, abuse of over the counter medicines or prescription medicines. This, however, is in contrast to what we know from my last hospitalization, in which his significant other Estrella, admits that he takes extra pain medications. He has never been in substance use treatment. He had a DUI many many years ago. He also endorses a very remote use of marijuana years ago. We have queried the [facility] site, which revealed that his most recent prescriptions include Ativan 1 mg tablets, quantity [address] Gonzalez on October 19, morphine sulfate ER 15 mg tablets #60 from same physician on October 17, oxycodone 50 mg tablet 140 quantity same physician on October 17. PERSONAL HISTORY: The patient grew up locally, he is a high school graduate. He has been with his significant other, Estrella for the last 17 years. He has no biological children. He denies legal issues. Psychological trauma history is denied. MENTAL STATUS EXAMINATION A 46-year-old gentleman, dressed in a hospital gown and scrub pants, lying on his back in his second floor bed. He is alert and cooperative with the interview. He makes good eye contact. Motor behavior is unremarkable, there is no evidence of pain. Speech is of normal rate, volume, and tone. Affect is flat to angry to tearful. Mood is depressed. Thought process is organized and goal directed. He denies thought disorder in the form of hallucinations or delusions. He endorses suicidal thinking and acknowledges an intentional toxic ingestion of 1-2 cups of Windex in a suicide attempt. Today, he is fully oriented. Memory functions are intact. Fund of knowledge is intact. Intelligence is estimated to be average. Insight and judgment are impaired. VITAL SIGNS: Temp 36.9, pulse 86, respirations 18, blood pressure 121/87, and pulse ox 91% on room air. LABORATORIES: 1. CBC -- notable for WBCs trending down to 11.97, RBCs low at 4.40, hemoglobin and hematocrit low at 11.7 and 34.3. 2. Chem profile -- notable only for elevated glucoses 112 and 122. 3. Toxicology -- positive for opiates, ecstasy, which is usually a false positive. 4. Urinalysis -- without evidence of infection. IMAGING STUDIES: 1. Chest x-ray -- patchy parenchymal infiltrative changes, right upper lung and left base. 2. Abdomen and pelvis CT -- minimal right middle lobe infiltrative process. Mild bibasilar atelectasis. Otherwise negative abdomen and pelvis. REVIEW OF SYSTEMS: Positive for complaints of fatigue, cough, depression, and suicidal ideation. PHYSICAL EXAMINATION: As per Dr. Galarza. IMPRESSION: A 46-year-old gentleman admitted to the hospital with pneumonia after presenting to the Emergency Room status post suicide attempt by ingesting Windex. It is notable that the poison control center indicates that if he was able to keep down fluids that he likely did not ingest Windex, calling into suspicion the reliability of his report. Stanton is certainly acted dramatically in the past in order to get his needs met. That having been said, the patient continues to feel acutely depressed with suicidal ideation. As per the HPI, the patient was just discharged administratively from our mental health unit because he was diverting narcotics and because of that, I would recommend nursing do mouth checks with every controlled substances and I have communicated this with his nurse Dana today. Because of his behaviors on the mental health unit, I believe that therapeutic alliance is damaged at this point and do not see that a hospitalization on our mental health unit would be therapeutic. Unfortunately, the patient has multiple medical conditions that makes him a difficult placement for any facility that is not within the hospital. I do recommend inpatient mental health hospitalization if one can be found. I have spoken with Dr. Silvestre about this and he agrees that he will clear him medically today for us to begin to find placement for him. Obviously, if no other facilities are available to take him in a reasonable period of time, then we will take him on our mental health unit bed if a bed is available. Also, as per the HPI, his significant other supposedly has lost all of his narcotic and her narcotics. I hold this with high suspicion and would recommend that we not provide him prescriptions for narcotics upon discharge. The patient is chronically noncompliant with outpatient recommendations for psychiatric care and is currently working on a crisis model, meaning that he waits until he is in crisis and then reports to the Emergency Room. I have asked him to get some serious plot as to what he believes the barriers are to him investing in outpatient treatment as I am not sure that anything is going to work until he participates in outpatient therapy and medication management. I recommend he remain on 1:1 as the patient's behaviors in the past had demonstrated that he will be less than forthcoming and has manipulated things in the past to get more attention or narcotics. We will follow along as we try to find placement for this gentleman in a mental health facility. DIAGNOSES: 1. Depression, not otherwise specified. 2. Anxiety disorder, not otherwise specified. 3. 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 4. Narcotic dependence, on chronic narcotics with a history of abusing and diverting. 5. Obesity. 6. Type 2 diabetes. 7. Benign prostatic hypertrophy. PLAN: Has been reviewed with Dr. Flory Alfaro. 1. Depression. a. Continue outpatient medications. b. Recommend inpatient mental health treatment and since he is cleared today, we will have the liaison nurse begin a bed search. Recommend he be placed elsewhere as he was just administratively discharged from our unit for diverting medications; however, if no beds are available, we will consider taking him on our mental health unit if we have a bed available. 2. Anxiety. a. Would continue Ativan on a t.i.d. schedule, but would not give him any p.r.n. as the patient has been known to be quite med seeking of controlled substances. 3. Opiate dependence. a. We have been in contact with his pain management clinic in [place] to alert them to the fact that he has been abusing medications and to his attempts to divert during last hospitalization. He was seen by them on the and they have continued to prescribe narcotics for him. Estrella indicates that she is flushed all of the narcotics at this point and this will be a problem for the patient moving forward. I would certainly recommend that we are in touch with his pain management clinic at some point simply to confirm their ongoing commitment to his treatment. 4. CYS report. a. I have made a phone report to CYS to [facility], ID #[id number], due to concerns that he has overdosed multiple times in his home in the presence of the 2 children. 5. Homelessness. a. I have spoken with social service to alert them of this. Estrella is saying that she will not allow him back in the home, although she has changed her mind during her last hospitalization about that. He is being evicted from his house and has no place to go. We will follow. Thank you for allowing us to participate in this man's care. [place]
[2016-11-05] MEDS: LEVOFLOXACIN 750 MG TAB PO SCH (15:54)
--- NOTE | 2016-11-05 18:26 | Progress Note ---
Medicine Progress Note Date & Time of Visit: Nov 05, 2016 at 17:38. Subjective Pt was seen and examined Sitting in chair very comfortable with no distress he is very calm and follow commands he has a 1:1 sitter with him in the room he denies any suicidal thought currently he said that he is under a lot of stress He said that he does not thing the Cymbalta is working for his depression denies any chest pain, palpitation, fever and sob Objective Last 8 Hrs Date Time Temp Pulse Resp B/P Pulse Ox O2 Delivery O2 Flow Rate FiO2 11/05/16 15:19 37.4 86 17 167/82 93 Room Air 11/05/16 14:56 37.6 99 20 127/81 94 11/05/16 14:20 Room Air 11/05/16 13:58 91 16 96 Room Air Physical Exam: General- No acute distress, calm Head- atraumatic Eyes- PERRL, EOMI ENT- oropharynx clear Neck- supple, no JVD Lungs- + mild wheezing Heart- regular rhythm; no murmur Abdomen- normal bowel sounds, soft, nontender Extremities- no calf tenderness Neuro- alert, oriented x 3; PERRL, EOMI; no facial palsy Skin- warm & dry Laboratory Results: Last 24 Hours Test 11/04/16 18:00 11/04/16 18:05 11/05/16 07:15 11/05/16 08:21 Urine Color DK YELLOW Urine Appearance CLEAR Urine pH 6.0 Urine Specific [place] 1.025 Urine Protein NEG Urine Glucose (UA) NEG Urine Ketones NEG Urine Occult Blood NEG Urine Nitrite NEG Urine Bilirubin NEG Urine Urobilinogen NEG Urine Leukocyte Esterase NEG Urine Opiates Screen POS Urine Methadone, Qualitative NEG Urine Barbiturates NEG Urine Phencyclidine (PCP) Level NEG Ur Amphetamine/Methamphetamine NEG MDMA (Ecstasy) Screen POS Urine Benzodiazepines Screen NEG Urine Cocaine Metabolite NEG Urine Marijuana (THC) NEG Ethyl Alcohol mg/dL < 3.0 mg/dl White Blood Count 15.11 K/uL 11.97 K/uL Red Blood Count 4.78 M/uL 4.40 M/uL Hemoglobin 12.9 g/dL 11.7 g/dL Hematocrit 37.6 % 34.3 % Mean Corpuscular Volume 78.7 fL 78.0 fL Mean Corpuscular Hemoglobin 27.0 pg 26.6 pg Mean Corpuscular Hemoglobin Concent 34.3 g/dl 34.1 g/dl Platelet Count 364 K/uL 308 K/uL Mean Platelet Volume 9.9 fL 9.4 fL Neutrophils (%) (Auto) 72.8 % 70.6 % Lymphocytes (%) (Auto) 17.9 % 19.0 % Monocytes (%) (Auto) 7.2 % 7.9 % Eosinophils (%) (Auto) 0.9 % 1.2 % Basophils (%) (Auto) 0.3 % 0.3 % Neutrophils # (Auto) 11.00 K/uL 8.46 K/uL Lymphocytes # (Auto) 2.70 K/uL 2.27 K/uL Monocytes # (Auto) 1.09 K/uL 0.95 K/uL Eosinophils # (Auto) 0.14 K/uL 0.14 K/uL Basophils # (Auto) 0.05 K/uL 0.03 K/uL RDW Standard Deviation 45.6 fL 46.2 fL RDW Coefficient of Variation 15.9 % 16.1 % Immature Granulocyte % (Auto) 0.9 % 1.0 % Immature Granulocyte # (Auto) 0.13 K/uL 0.12 K/uL Prothrombin Time 12.0 SECONDS Prothromb Time International Ratio 1.1 Activated Partial Thromboplast Time 28.5 SECONDS Partial Thromboplastin Ratio 1.1 Sodium Level 143 mmol/L 142 mmol/L Potassium Level 3.2 mmol/L 3.7 mmol/L Chloride Level 108 mmol/L 109 mmol/L Carbon Dioxide Level 25 mmol/L 22 mmol/L Anion Gap 10.0 mmol/L 11.0 mmol/L Blood Urea Nitrogen 11 mg/dl 9 mg/dl Creatinine 0.89 mg/dl 0.90 mg/dl Est Creatinine Clear Calc Drug Dose 154.7 ml/min 154.0 ml/min Estimated GFR () 118.8 118.3 Estimated GFR (Non- 102.5 102.1 BUN/Creatinine Ratio 12.2 10.3 Random Glucose 85 mg/dl 122 mg/dl Osmolality 294 mOsm/kg Calcium Level 8.9 mg/dl 8.7 mg/dl Magnesium Level 1.9 mg/dl Total Bilirubin 0.5 mg/dl Direct Bilirubin 0.1 mg/dl Aspartate Amino Transf (AST/SGOT) 9 U/L Alanine Aminotransferase (ALT/SGPT) 17 U/L Alkaline Phosphatase 79 U/L Total Creatine Kinase 74 U/L Total Protein 6.9 gm/dl Albumin 2.7 gm/dl Lipase 123 U/L Salicylates Level < 1.7 mg/dl Acetaminophen Level < 2 ug/ml Bedside Glucose 122 mg/dl Test 11/05/16 11:15 11/05/16 16:19 Bedside Glucose 112 mg/dl 105 mg/dl Assessment & Plan Community-acquired pneumonia WBC on admission was 175K Afebrile and wbc trending down 11K On PO Levaquin daily Continue Respiratory treatment Clinically stable Intentional Suicidal Ingested Windex Poison control contacted per admitting physician no need to continue monitor inpatient Clinically stable Continue 1 to 1 observation cannot sign AMA Psych consulted, will need in patient psych treatment as per psych, he was discharged administratively from our mental health unit because he was diverting narcotics Will consider placement to inpatient psych at another facility Chronic pain Follow with pain management in [facility] [address] prescription drug monitoring reviewed and his last refilled: lorazepam 1 mg was filled on 10/19 morphine 15mg and oxycodone 15mg were filled on 10/17 Pt just found out that his is very upset and flushed all the narcotics meds Continue med while inpatient COPD continue respiratory treatment Saturate well on RA Stable Tobacco abuse Counseling on smoking cessation Hx PE status post anticoagulation. stable Chronic Anemia Hgb stable Hx recurrent C-diff On abx for pneumonia If develops any diarrhea, please send stool for C-diff Hypokalemia K 3.7 Continue monitor BMP DM type 2 Recent Hba1C 5.6 on 03/05 Controlled with diet will check hba1c DVT px on Lovenox subQ CODE STATUS FULL CODE DISPOSITION Pt is medically stable to transfer to inpatient psych Current Inpatient Medications: Current Inpatient Medications Medications (Trade) Dose Ordered Sig/Aamlia Route Start Time Stop Time Status Last Admin Dose Admin Ioversol (Optiray 320) 125 ml UD PRN IV 11/04/16 21:15 11/08/16 21:14 Cyclobenzaprine HCl (Flexeril Tab) 10 mg HS PRN PO 11/04/16 21:15 12/04/16 21:14 Docusate Sodium (coLACE CAP) 100 mg BID PRN PO 11/05/16 01:00 12/05/16 00:59 Duloxetine HCl (Cymbalta Cap) 120 mg DAILY PO 11/05/16 09:00 12/05/16 08:59 11/05/16 09:29 120 MG Finasteride (Proscar Tab) 5 mg DAILY PO 11/05/16 09:00 12/05/16 08:59 11/05/16 09:30 5 MG Gabapentin (Neurontin Tab) 600 mg TID PO 11/05/16 09:00 12/05/16 08:59 11/05/16 13:46 600 MG Lorazepam (Ativan Tab) 1 mg BID PRN PO 11/04/16 21:15 12/04/16 21:14 11/05/16 09:31 1 MG Morphine Sulfate (Oramorph Sr Tab) 15 mg Q8 PO 11/05/16 01:00 11/19/16 00:59 11/05/16 13:47 15 MG Ondansetron HCl (Zofran Tab) 4 mg QID PRN PO 11/04/16 21:15 12/04/16 21:14 Quetiapine Fumarate (seroQUEL TAB) 25 mg BID PO 11/05/16 09:00 12/05/16 08:59 11/05/16 09:30 25 MG Tamsulosin HCl (Flomax Cap) 0.4 mg DAILY PO 11/05/16 09:00 12/05/16 08:59 11/05/16 09:30 0.4 MG Topiramate (Topamax Tab) 200 mg HS PO 11/05/16 21:00 12/05/16 20:59 Trazodone HCl (Desyrel Tab) 100 mg HS PO 11/05/16 21:00 12/05/16 20:59 Polyethylene (Miralax Powder Packet) 17 gm DAILY PRN PO 11/05/16 01:00 12/05/16 00:59 Oxycodone HCl (Roxicodone Immediate Rel Tab) 5 mg 5XDQ3H PRN PO 11/04/16 21:15 11/18/16 21:14 11/05/16 17:18 5 MG Enoxaparin Sodium (Lovenox Inj) 40 mg Q24H SQ 11/05/16 09:00 12/05/16 08:59 11/05/16 09:31 40 MG Acetaminophen (Tylenol Tab) 650 mg Q4H PRN PO 11/04/16 22:30 12/04/16 22:29 Insulin Aspart (novoLOG ASPART) SLIDING SCALE If C... ACHS SC 11/05/16 06:30 12/05/16 06:59 Glucose (Glucose 40% Gel) 15-30 GRAMS 15 GRAMS... UD PRN PO 11/04/16 22:30 12/04/16 22:29 Glucose (Glucose Chew Tab) 4-8 Tablets 4 Tabl... UD PRN PO 11/04/16 22:30 12/04/16 22:29 Dextrose (Dextrose 50% 50ML Syringe) 25-50ML OF 50% DW IV FOR... UD PRN IV 11/04/16 22:30 12/04/16 22:29 Glucagon (Glucagon Inj) 1 mg UD PRN SQ 11/04/16 22:30 12/04/16 22:29 Levofloxacin (Consult) 1 ea UD PRN N/A 11/05/16 01:00 12/05/16 00:59 Nicotine (Nicoderm Cq 21MG Patch) 1 patch QAM TD 11/05/16 09:00 12/05/16 08:59 11/05/16 09:31 1 PATCH Miscellaneous (Remove Nicoderm Patch) 1 ea HS N/A 11/05/16 21:00 12/05/16 20:59 Ondansetron HCl (Zofran Inj) 4 mg Q6H PRN IV 11/04/16 22:45 12/04/16 22:44 Lactobacillus Acidophilus (Floranex Tab) 4 tab TIDM PO 11/05/16 08:00 12/05/16 07:59 11/05/16 17:19 4 TAB Ipratropium [place] (Atrovent 0.02% 0.5MG/2.5ML Neb) 0.5 mg Q6R INH 11/05/16 03:00 12/05/16 02:59 11/05/16 13:58 0.5 MG Levalbuterol (Xopenex 1.25MG/ 0.5ML Neb) 1.25 mg Q6R INH 11/05/16 03:00 12/05/16 02:59 11/05/16 13:58 1.25 MG Ipratropium [place] (Atrovent 0.02% 0.5MG/2.5ML Neb) 0.5 mg Q4H PRN INH 11/05/16 01:00 12/05/16 00:59 Levalbuterol (Xopenex 1.25MG/ 0.5ML Neb) 1.25 mg Q4H PRN INH 11/05/16 01:00 12/05/16 00:59 Levofloxacin (Levaquin Tab) 750 mg DAILY@11 PO 11/05/16 16:00 11/10/16 11:01 11/05/16 15:54 750 MG
[2016-11-05] MEDS ORDERED: SUMATRIPTAN SUCCINATE 50 MG TAB PO PRN (20:45)
[2016-11-05] MEDS ORDERED: BUDESONIDE/FORMOTEROL FUMARATE 80/4.5 60 PUFFS/INHALER INH PRN (20:45)
[2016-11-05] MEDS: TRAZODONE HCL 50 MG TAB PO SCH (22:40)
[2016-11-05] MEDS: CYCLOBENZAPRINE HCL 10 MG TAB PO PRN (22:41)
[2016-11-05] MEDS: TOPIRAMATE 100 MG TAB PO SCH (22:41)
[2016-11-06] VITALS: O2SAT 93
[2016-11-06] MEDS: LEVALBUTEROL 1.25MG/0.5ML NEB INH SCH ×4 (03:00→19:44)
[2016-11-06] MEDS: IPRATROPIUM BROMIDE NEB SOLN 0.02% 2.5 ML VIAL INH SCH ×4 (03:00→19:44)
[2016-11-06] MEDS: MoRPHine SULFATE CR 15 MG TAB (MS CONTIN) PO SCH ×3 (05:40→21:25)
[2016-11-06 06:52] VITALS: PULSE 64; O2SAT 94
[2016-11-06 07:03] VITALS: BP 146/95; PULSE 58; TEMP 36.5; O2SAT 93
[2016-11-06 07:32] LABS: BASO % 0.7 %; BASO ABS # 0.06 K/uL (0-0.2); COMPLETE YES; EOS % 2.6 %; HEMATOCRIT 36.5 % (42-52); IG% 1.3 %; LYMPH % 24.8 %; LYMPH ABS # 2.25 K/uL (1.2-3.4); MEAN CELL VOLUME 80.6 fL (80-100); MEAN CORPUSCULAR HEMOGLOBIN 26.9 pg (25-34); MEAN CORPUSCULAR HGB CONC 33.4 g/dl (32-36); MEAN PLATELET VOLUME 9.6 fL (7.4-10.4); MONO % 7.3 %; NEUT % 63.3 %; PLATELET COUNT 264 K/uL (130-400); RED BLOOD COUNT 4.53 M/uL (4.7-6.1); WHITE BLOOD COUNT 9.07 K/uL (4.8-10.8)
[2016-11-06] MEDS: OXYCODONE HCL IR 5 MG TAB (IMMEDIATE RELEASE) PO PRN ×2 (07:58→11:13)
[2016-11-06] MEDS: TAMSULOSIN HCL 0.4 MG CAP PO SCH (07:59)
[2016-11-06] MEDS: NICOTINE 21 MG/24 HR TDSY TD SCH (07:59)
[2016-11-06] MEDS: QUETIAPINE FUMARATE 25 MG TAB PO SCH ×2 (08:00→21:23)
[2016-11-06] MEDS: LACTOBACILLUS ACIDOPHILUS (FLORANEX) TAB PO SCH ×3 (08:01→17:46)
[2016-11-06] MEDS: GABAPENTIN 600 MG TAB PO SCH ×3 (08:01→21:23)
[2016-11-06] MEDS: FINASTERIDE 5 MG TAB PO SCH (08:02)
[2016-11-06] MEDS: DULOXETINE HCL 60 MG CAP PO SCH (08:03)
[2016-11-06] MEDS: ENOXAPARIN 40 MG/0.4 ML SYR SQ SCH (08:03)
[2016-11-06] MEDS: INSULIN ASPART 100 UNITS/ML 3 ML PEN SC SCH ×4 (08:08→21:00)
[2016-11-06] MEDS: LEVOFLOXACIN 750 MG TAB PO SCH (11:12)
--- NOTE | 2016-11-06 12:00 | Psychiatric Progress Notes ---
Psychiatric Progress Note Date of Service Nov 06, 2016. Notes ID: Patient reviewed with liaison nurse. interim progress reviewed. Patient known to me from recent inpatient stay on [facility]. CC: "nolberto's here" HPI: girlfriend tearful and wouldn't make eye contact with provider, patient hugging her for support, maintains that he drank windex and remains suicidal. ROS: muscular chest discomfort and cough MSE: alert, cooperative, affect pleasant/calm, thoughts organized, SI as above, no lebron Imp: unspecified depression and anxiety disorder, opiate dependence, hx of malingering Plan: after meeting with patient, notified that nursing to catch patient trying to divert his pain medication, wouldn't take responsibility bed search for facilities that offer ECT ongoing
[2016-11-06] MEDS ORDERED: OXYCODONE HCL SOLN 5 MG/5 ML UDC PO PRN (12:45)
--- NOTE | 2016-11-06 13:00 | Progress Note ---
Medicine Progress Note Date & Time of Visit: Nov 06, 2016 at 12:36. Subjective Pt was seen and examined Sitting in bed comfortable with no distress with 1 to 1 sitter he has been walking in the hallway with the sitter He complaint of back pain and headache he said that he has some headache and requested his Imitrex injection to resume Nurse notified me that she caught him trying to divert his pain med. denies any chest pain, palpitation, dizziness and SOB Objective Last 8 Hrs Date Time Temp Pulse Resp B/P Pulse Ox O2 Delivery O2 Flow Rate FiO2 11/06/16 09:20 Room Air 11/06/16 07:03 36.5 58 18 146/95 93 Room Air 11/06/16 06:52 64 16 94 Room Air Physical Exam: General- No acute distress, calm Head- atraumatic Eyes- PERRL, EOMI ENT- oropharynx clear Neck- supple, no JVD Lungs- +wheezing Heart- regular rhythm; no murmur Abdomen- normal bowel sounds, soft, nontender Extremities- no calf tenderness Neuro- alert, oriented x 3; PERRL, EOMI; no facial palsy Skin- warm & dry Laboratory Results: Last 24 Hours Test 11/05/16 16:19 11/05/16 20:21 11/06/16 07:13 11/06/16 07:31 Bedside Glucose 105 mg/dl 94 mg/dl 97 mg/dl White Blood Count 9.07 K/uL Red Blood Count 4.53 M/uL Hemoglobin 12.2 g/dL Hematocrit 36.5 % Mean Corpuscular Volume 80.6 fL Mean Corpuscular Hemoglobin 26.9 pg Mean Corpuscular Hemoglobin Concent 33.4 g/dl Platelet Count 264 K/uL Mean Platelet Volume 9.6 fL Neutrophils (%) (Auto) 63.3 % Lymphocytes (%) (Auto) 24.8 % Monocytes (%) (Auto) 7.3 % Eosinophils (%) (Auto) 2.6 % Basophils (%) (Auto) 0.7 % Neutrophils # (Auto) 5.74 K/uL Lymphocytes # (Auto) 2.25 K/uL Monocytes # (Auto) 0.66 K/uL Eosinophils # (Auto) 0.24 K/uL Basophils # (Auto) 0.06 K/uL RDW Standard Deviation 48.9 fL RDW Coefficient of Variation 16.5 % Immature Granulocyte % (Auto) 1.3 % Immature Granulocyte # (Auto) 0.12 K/uL Test 11/06/16 11:31 Bedside Glucose 102 mg/dl Assessment & Plan Community-acquired pneumonia WBC on admission was 17K Afebrile and wbc trending down and now wnl Continue PO Levaquin daily Continue Respiratory treatment Saturated well on RA Will add prednisone 40 mg and taper for the wheezing Clinically stable Intentional Suicidal Ingested Windex Poison control contacted per admitting physician no need to continue monitor inpatient Clinically stable Continue 1 to 1 observation cannot sign AMA Psych consulted, will need in patient psych treatment as per psych, he was discharged administratively from our mental health unit because he was diverting narcotics Waiting for placement for inpatient psych Chronic pain Follow with pain management in [facility] prescription drug monitoring reviewed and his last refilled: lorazepam 1 mg was filled on 10/19 morphine 15mg and oxycodone 15mg were filled on 10/17 Pt just found out that his is very upset and flushed all the narcotics meds Nurse caught him try to divert his pain medication Will consider to change his narcotic to liquid to facilitate transfer to inpatient psych Stable HEADACHE On Imitrex prn stable COPD continue respiratory treatment Saturate well on RA started on prednisone taper Stable Tobacco abuse Counseling on smoking cessation Nicotine patch Hx PE status post anticoagulation. stable Chronic Anemia Hgb stable Hx recurrent C-diff On abx for pneumonia If develops any diarrhea, please send stool for C-diff Hypokalemia stable Continue monitor BMP DM type 2 Recent Hba1C 5.6 on 03/05 Controlled with diet check hba1c DVT px on Lovenox subQ CODE STATUS FULL CODE DISPOSITION Pt is medically stable to transfer to inpatient psych Current Inpatient Medications: Current Inpatient Medications Medications (Trade) Dose Ordered Sig/Amalia Route Start Time Stop Time Status Last Admin Dose Admin Ioversol (Optiray 320) 125 ml UD PRN IV 11/04/16 21:15 11/08/16 21:14 11/05/16 22:45 125 ML Cyclobenzaprine HCl (Flexeril Tab) 10 mg HS PRN PO 11/04/16 21:15 12/04/16 21:14 11/05/16 22:41 10 MG Docusate Sodium (coLACE CAP) 100 mg BID PRN PO 11/05/16 01:00 12/05/16 00:59 Duloxetine HCl (Cymbalta Cap) 120 mg DAILY PO 11/05/16 09:00 12/05/16 08:59 11/06/16 08:03 120 MG Finasteride (Proscar Tab) 5 mg DAILY PO 11/05/16 09:00 12/05/16 08:59 11/06/16 08:02 5 MG Gabapentin (Neurontin Tab) 600 mg TID PO 11/05/16 09:00 12/05/16 08:59 11/06/16 08:01 600 MG Lorazepam (Ativan Tab) 1 mg BID PRN PO 11/04/16 21:15 12/04/16 21:14 11/05/16 23:25 1 MG Morphine Sulfate (Oramorph Sr Tab) 15 mg Q8 PO 11/05/16 01:00 11/19/16 00:59 11/06/16 05:40 15 MG Ondansetron HCl (Zofran Tab) 4 mg QID PRN PO 11/04/16 21:15 12/04/16 21:14 Quetiapine Fumarate (seroQUEL TAB) 25 mg BID PO 11/05/16 09:00 12/05/16 08:59 11/06/16 08:00 25 MG Tamsulosin HCl (Flomax Cap) 0.4 mg DAILY PO 11/05/16 09:00 12/05/16 08:59 11/06/16 07:59 0.4 MG Topiramate (Topamax Tab) 200 mg HS PO 11/05/16 21:00 12/05/16 20:59 11/05/16 22:41 200 MG Trazodone HCl (Desyrel Tab) 100 mg HS PO 11/05/16 21:00 12/05/16 20:59 11/05/16 22:40 100 MG Polyethylene (Miralax Powder Packet) 17 gm DAILY PRN PO 11/05/16 01:00 12/05/16 00:59 Oxycodone HCl (Roxicodone Immediate Rel Tab) 5 mg 5XDQ3H PRN PO 11/04/16 21:15 11/18/16 21:14 11/06/16 11:13 5 MG Enoxaparin Sodium (Lovenox Inj) 40 mg Q24H SQ 11/05/16 09:00 12/05/16 08:59 11/06/16 08:03 40 MG Acetaminophen (Tylenol Tab) 650 mg Q4H PRN PO 11/04/16 22:30 12/04/16 22:29 Insulin Aspart (novoLOG ASPART) SLIDING SCALE If C... ACHS SC 11/05/16 06:30 12/05/16 06:59 Glucose (Glucose 40% Gel) 15-30 GRAMS 15 GRAMS... UD PRN PO 11/04/16 22:30 12/04/16 22:29 Glucose (Glucose Chew Tab) 4-8 Tablets 4 Tabl... UD PRN PO 11/04/16 22:30 12/04/16 22:29 Dextrose (Dextrose 50% 50ML Syringe) 25-50ML OF 50% DW IV FOR... UD PRN IV 11/04/16 22:30 12/04/16 22:29 Glucagon (Glucagon Inj) 1 mg UD PRN SQ 11/04/16 22:30 12/04/16 22:29 Levofloxacin (Consult) 1 ea UD PRN N/A 11/05/16 01:00 12/05/16 00:59 Nicotine (Nicoderm Cq 21MG Patch) 1 patch QAM TD 11/05/16 09:00 12/05/16 08:59 11/06/16 07:59 1 PATCH Miscellaneous (Remove Nicoderm Patch) 1 ea HS N/A 11/05/16 21:00 12/05/16 20:59 11/05/16 22:44 1 EA Ondansetron HCl (Zofran Inj) 4 mg Q6H PRN IV 11/04/16 22:45 12/04/16 22:44 Lactobacillus Acidophilus (Floranex Tab) 4 tab TIDM PO 11/05/16 08:00 12/05/16 07:59 11/06/16 08:01 4 TAB Ipratropium [place] (Atrovent 0.02% 0.5MG/2.5ML Neb) 0.5 mg Q6R INH 11/05/16 03:00 12/05/16 02:59 11/06/16 06:52 0.5 MG Levalbuterol (Xopenex 1.25MG/ 0.5ML Neb) 1.25 mg Q6R INH 11/05/16 03:00 12/05/16 02:59 11/06/16 06:52 1.25 MG Ipratropium [place] (Atrovent 0.02% 0.5MG/2.5ML Neb) 0.5 mg Q4H PRN INH 11/05/16 01:00 12/05/16 00:59 Levalbuterol (Xopenex 1.25MG/ 0.5ML Neb) 1.25 mg Q4H PRN INH 11/05/16 01:00 12/05/16 00:59 Levofloxacin (Levaquin Tab) 750 mg DAILY@11 PO 11/05/16 16:00 11/10/16 11:01 11/06/16 11:12 750 MG Budesonide/ Formoterol Fumarate (Symbicort 80/ 4.5 Inh) 2 puffs BID PRN INH 11/05/16 20:45 12/05/16 20:44 Sumatriptan Succinate (Imitrex Tab) 50 mg UD PRN PO 11/05/16 20:45 12/05/16 20:44 11/05/16 23:54 50 MG
[2016-11-06 13:34] LABS: ESTIMATED AVERAGE GLUCOSE 128 mg/dl; HA1C FLAG Normal (Normal)
[2016-11-06 14:56] VITALS: PULSE 94; O2SAT 94
[2016-11-06 15:22] VITALS: BP 161/94; PULSE 78; TEMP 36.9; O2SAT 92
[2016-11-06] MEDS: LORAZEPAM 1 MG TAB PO PRN (16:07)
[2016-11-06] MEDS ORDERED: SUMATRIPTAN SUCCINATE 6 MG/0.5 ML VIAL SQ PRN (19:15)
[2016-11-06] MEDS: OXYCODONE HCL SOLN 5 MG/5 ML UDC PO PRN (19:21)
[2016-11-06] MEDS ORDERED: NURSING VERBAL MED ORDER ONE (19:30)
[2016-11-06] MEDS ORDERED: OXYCODONE HCL SOLN 5 MG/5 ML UDC PO ONE (19:30)
[2016-11-06 19:44] VITALS: PULSE 110; O2SAT 96
[2016-11-06] MEDS: TOPIRAMATE 100 MG TAB PO SCH (21:23)
[2016-11-06] MEDS: TRAZODONE HCL 50 MG TAB PO SCH (21:23)
[2016-11-06] MEDS: CYCLOBENZAPRINE HCL 10 MG TAB PO PRN (21:27)
[2016-11-07] MEDS: LORAZEPAM 1 MG TAB PO PRN (02:13)
[2016-11-07] MEDS: OXYCODONE HCL SOLN 5 MG/5 ML UDC PO PRN ×3 (02:19→14:07)
[2016-11-07 02:23] VITALS: PULSE 86; O2SAT 95
[2016-11-07] MEDS: LEVALBUTEROL 1.25MG/0.5ML NEB INH SCH ×3 (02:23→14:21)
[2016-11-07] MEDS: IPRATROPIUM BROMIDE NEB SOLN 0.02% 2.5 ML VIAL INH SCH ×3 (02:23→14:20)
[2016-11-07] MEDS: MoRPHine SULFATE CR 15 MG TAB (MS CONTIN) PO SCH ×2 (06:11→14:07)
[2016-11-07] MEDS: INSULIN ASPART 100 UNITS/ML 3 ML PEN SC SCH ×2 (06:30→11:00)
[2016-11-07 07:02] LABS: HEMATOCRIT 36.3 % (42-52); MEAN CORPUSCULAR HEMOGLOBIN 26.9 pg (25-34); MEAN CORPUSCULAR HGB CONC 33.6 g/dl (32-36); MEAN PLATELET VOLUME 9.7 fL (7.4-10.4); PLATELET COUNT 350 K/uL (130-400); RED BLOOD COUNT 4.54 M/uL (4.7-6.1); WHITE BLOOD COUNT 14.47 K/uL (4.8-10.8)
[2016-11-07 07:06] VITALS: PULSE 77; O2SAT 95
[2016-11-07 07:22] VITALS: BP 139/88; PULSE 76; TEMP 36.6; O2SAT 92
[2016-11-07 07:42] LABS: BASO % 0.2 %; BASO ABS # 0.03 K/uL (0-0.2); COMPLETE YES; EOS % 0.3 %; IG% 0.6 %; LYMPH ABS # 2.17 K/uL (1.2-3.4); MONO % 5.8 %; NEUT % 78.1 %
[2016-11-07] MEDS: LACTOBACILLUS ACIDOPHILUS (FLORANEX) TAB PO SCH ×2 (08:02→12:39)
[2016-11-07] MEDS: QUETIAPINE FUMARATE 25 MG TAB PO SCH (08:02)
[2016-11-07] MEDS: DULOXETINE HCL 60 MG CAP PO SCH (08:03)
[2016-11-07] MEDS: TAMSULOSIN HCL 0.4 MG CAP PO SCH (08:03)
[2016-11-07] MEDS: FINASTERIDE 5 MG TAB PO SCH (08:04)
[2016-11-07] MEDS: GABAPENTIN 600 MG TAB PO SCH ×2 (08:04→14:04)
[2016-11-07] MEDS: NICOTINE 21 MG/24 HR TDSY TD SCH (08:05)
[2016-11-07] MEDS: ENOXAPARIN 40 MG/0.4 ML SYR SQ SCH (08:06)
[2016-11-07] MEDS ORDERED: QUETIAPINE FUMARATE 25 MG TAB PO PRN (09:45)
--- NOTE | 2016-11-07 09:52 | Psychiatric Progress Notes ---
Psychiatric Progress Note Date of Service Nov 07, 2016. Notes ID: Patient reviewed with liaison nurse. interim progress reviewed. Patient known to me from recent inpatient stay on [facility]. CC: "I'm feeling some better" HPI: Patient showing some increase in insight today. Still maintains that he drank windex but states he doesn't want to and admittedly was focussed on his pain meds. He appears bright and conversational and maintains that he and Estrella are still a couple. ROS: similar muscular chest discomfort and cough MSE: alert, cooperative, affect pleasant/calm, thoughts organized, states his thoughts about are chronic, denies active intent or plan. No evidence of psychosis. Imp: unspecified depression and anxiety disorder, opiate dependence, hx of malingering Plan: patient is aware that there are no anticipated male beds on [facility] this weekend and he maintains that it is not a therapeutic environment for him given just there last month will resume bed search for 2-3 more hospital based facilities I do not feel he currently meets criteria for involuntary commitment as circumstances around his OD are suspect and remains pain med seeking, he remains agreeable to voluntary treatment elsewhere reviewed his current medication regimen and patient agrees that prn Ativan can be tapered in favor of Seroquel augmentation for his depression. Will change prn to Seroquel and introduce a slightly higher dose of Seroquel at night. patient also is able to relate that he felt best when on low dose synthroid for antidepressant augmentation and will also resume after full discussion, Mr. Milner asked again to speak with liaison nurse Trey to state he was afraid to go to an outside facility as unsure of his access to pain meds there. will discuss case with Dr. Silvestre to determine what meds will be available to patient at discharge as very likely will need to safety plan on medical floor and discharge from there.
[2016-11-07] MEDS: LEVOFLOXACIN 750 MG TAB PO SCH (12:40)
[2016-11-07 14:23] VITALS: PULSE 102; O2SAT 94
--- NOTE | 2016-11-07 16:03 | Progress Note ---
Medicine Progress Note Date & Time of Visit: Nov 07, 2016 at 15:37. Subjective Pt was seen and examined Sitting in bed very comfortable with no distress with 1 to 1 sitter Pt has been walking in the hallway with the 1:1 sitter He does not show any signs of pain, but when asked he said that he is on alot of pain he refused inpatient psych to our facility because he said that they wants him to sign a paper with many rules that he has to follow denies any suicidal thought, palpitation, dizziness, chest pain and SOB Objective Last 8 Hrs Date Time Temp Pulse Resp B/P Pulse Ox O2 Delivery O2 Flow Rate FiO2 11/07/16 14:23 102 18 94 Room Air Physical Exam: General- No acute distress, calm Head- atraumatic Eyes- PERRL, EOMI ENT- oropharynx clear Neck- supple, no JVD Lungs- +wheezing Heart- regular rhythm; no murmur Abdomen- normal bowel sounds, soft, nontender Extremities- no calf tenderness Neuro- alert, oriented x 3; PERRL, EOMI; no facial palsy Skin- warm & dry Laboratory Results: Last 24 Hours Test 11/06/16 16:21 11/06/16 20:38 11/07/16 06:33 11/07/16 07:06 Bedside Glucose 110 mg/dl 112 mg/dl 122 mg/dl White Blood Count 14.47 K/uL Red Blood Count 4.54 M/uL Hemoglobin 12.2 g/dL Hematocrit 36.3 % Mean Corpuscular Volume 80.0 fL Mean Corpuscular Hemoglobin 26.9 pg Mean Corpuscular Hemoglobin Concent 33.6 g/dl Platelet Count 350 K/uL Mean Platelet Volume 9.7 fL Neutrophils (%) (Auto) 78.1 % Lymphocytes (%) (Auto) 15.0 % Monocytes (%) (Auto) 5.8 % Eosinophils (%) (Auto) 0.3 % Basophils (%) (Auto) 0.2 % Neutrophils # (Auto) 11.30 K/uL Lymphocytes # (Auto) 2.17 K/uL Monocytes # (Auto) 0.84 K/uL Eosinophils # (Auto) 0.04 K/uL Basophils # (Auto) 0.03 K/uL RDW Standard Deviation 48.5 fL RDW Coefficient of Variation 16.7 % Immature Granulocyte % (Auto) 0.6 % Immature Granulocyte # (Auto) 0.09 K/uL Test 11/07/16 11:24 Bedside Glucose 109 mg/dl Assessment & Plan Community-acquired pneumonia WBC on admission was 17K Afebrile count elevated today due to the steroid On PO Levaquin day 3 Continue Respiratory treatment Saturated well on RA On prednisone 40 mg and taper for the wheezing Clinically stable Intentional Suicidal Ingested Windex Poison control contacted per admitting physician no need to continue monitor inpatient Clinically stable On 1 to 1 observation Denies any suicidal ideation Psych consulted Levothyroxine 25mg was started by psych since pt said that it helps him with the depression as per psych, he was discharged administratively from our mental health unit because he was diverting narcotics yesterday he refused to sign for inpatient psych to our facility because he said that they wanted him to sign a paper with many rules that he had to follow Psych cannot find a facility to accept him for inpatient treatment Discussed case with Dr. Alfaro that would not recommending pursuing an inpatient involuntary commitment as the patient is not actively suicidal or psychotic. Pt is more concerned about his pain meds. He said that he can be discharge home if he got a script that can last him until is next appt with pain management next Sat. from Psych standpoint pt can be discharge home with a safety plan Chronic pain Follow with pain management in [facility] prescription drug monitoring reviewed and his last refilled: lorazepam 1 mg was filled on 10/19 morphine 15mg and oxycodone 15mg were filled on 10/17 his is very upset and flushed all the narcotics meds yesterday Nurse caught him try to divert his pain medication yesterday His narcotic Changed to liquid to facilitate transfer to inpatient psych Pt does not want to be discharged yet because he is out of pain med He said that his next appointment with pain management his next Wednesday I will give him a script to last him until Wednesday since he has an appointment with his PCP on 11/09/16 HEADACHE On Imitrex prn stable COPD continue respiratory treatment Saturate well on RA started on prednisone taper Stable Tobacco abuse Counseling on smoking cessation Nicotine patch Hx PE status post anticoagulation. stable Chronic Anemia Hgb stable Hx recurrent C-diff On abx for pneumonia If develops any diarrhea, please send stool for C-diff Hypokalemia stable Continue monitor BMP DM type 2 Recent Hba1C 5.6 on 03/05 Controlled with diet most recent hba1c 6.1 DVT px on Lovenox subQ CODE STATUS FULL CODE DISPOSITION Pt is medically stable to transfer to inpatient psych Consultants: Psych Current Inpatient Medications: Current Inpatient Medications Medications (Trade) Dose Ordered Sig/Amalia Route Start Time Stop Time Status Last Admin Dose Admin Ioversol (Optiray 320) 125 ml UD PRN IV 11/04/16 21:15 11/08/16 21:14 11/05/16 22:45 125 ML Cyclobenzaprine HCl (Flexeril Tab) 10 mg HS PRN PO 11/04/16 21:15 12/04/16 21:14 11/06/16 21:27 10 MG Docusate Sodium (coLACE CAP) 100 mg BID PRN PO 11/05/16 01:00 12/05/16 00:59 Duloxetine HCl (Cymbalta Cap) 120 mg DAILY PO 11/05/16 09:00 12/05/16 08:59 11/07/16 08:03 120 MG Finasteride (Proscar Tab) 5 mg DAILY PO 11/05/16 09:00 12/05/16 08:59 11/07/16 08:04 5 MG Gabapentin (Neurontin Tab) 600 mg TID PO 11/05/16 09:00 12/05/16 08:59 11/07/16 14:04 600 MG Morphine Sulfate (Oramorph Sr Tab) 15 mg Q8 PO 11/05/16 01:00 11/19/16 00:59 11/07/16 14:07 15 MG Ondansetron HCl (Zofran Tab) 4 mg QID PRN PO 11/04/16 21:15 12/04/16 21:14 Quetiapine Fumarate (seroQUEL TAB) 25 mg BID PO 11/05/16 09:00 11/07/16 21:00 11/07/16 08:02 25 MG Tamsulosin HCl (Flomax Cap) 0.4 mg DAILY PO 11/05/16 09:00 12/05/16 08:59 11/07/16 08:03 0.4 MG Topiramate (Topamax Tab) 200 mg HS PO 11/05/16 21:00 12/05/16 20:59 11/06/16 21:23 200 MG Trazodone HCl (Desyrel Tab) 100 mg HS PO 11/05/16 21:00 12/05/16 20:59 11/06/16 21:23 100 MG Polyethylene (Miralax Powder Packet) 17 gm DAILY PRN PO 11/05/16 01:00 12/05/16 00:59 Enoxaparin Sodium (Lovenox Inj) 40 mg Q24H SQ 11/05/16 09:00 12/05/16 08:59 11/07/16 08:06 40 MG Acetaminophen (Tylenol Tab) 650 mg Q4H PRN PO 11/04/16 22:30 12/04/16 22:29 Insulin Aspart (novoLOG ASPART) SLIDING SCALE If C... ACHS SC 11/05/16 06:30 12/05/16 06:59 Glucose (Glucose 40% Gel) 15-30 GRAMS 15 GRAMS... UD PRN PO 11/04/16 22:30 12/04/16 22:29 Glucose (Glucose Chew Tab) 4-8 Tablets 4 Tabl... UD PRN PO 11/04/16 22:30 12/04/16 22:29 Dextrose (Dextrose 50% 50ML Syringe) 25-50ML OF 50% DW IV FOR... UD PRN IV 11/04/16 22:30 12/04/16 22:29 Glucagon (Glucagon Inj) 1 mg UD PRN SQ 11/04/16 22:30 12/04/16 22:29 Levofloxacin (Consult) 1 ea UD PRN N/A 11/05/16 01:00 11/10/16 11:01 Nicotine (Nicoderm Cq 21MG Patch) 1 patch QAM TD 11/05/16 09:00 12/05/16 08:59 11/07/16 08:05 1 PATCH Miscellaneous (Remove Nicoderm Patch) 1 ea HS N/A 11/05/16 21:00 12/05/16 20:59 11/05/16 22:44 1 EA Ondansetron HCl (Zofran Inj) 4 mg Q6H PRN IV 11/04/16 22:45 12/04/16 22:44 Lactobacillus Acidophilus (Floranex Tab) 4 tab TIDM PO 11/05/16 08:00 12/05/16 07:59 11/07/16 12:39 4 TAB Levofloxacin (Levaquin Tab) 750 mg DAILY@11 PO 11/05/16 16:00 11/10/16 11:01 11/07/16 12:40 750 MG Budesonide/ Formoterol Fumarate (Symbicort 80/ 4.5 Inh) 2 puffs BID PRN INH 11/05/16 20:45 12/05/16 20:44 Sumatriptan Succinate (Imitrex Tab) 50 mg UD PRN PO 11/05/16 20:45 12/05/16 20:44 11/05/16 23:54 50 MG Prednisone (PredniSONE TAB) 40 mg DAILY PO 11/07/16 09:00 12/07/16 08:59 11/07/16 08:04 40 MG Oxycodone HCl (Roxicodone Soln) 15 mg Q6 PRN PO 11/06/16 20:00 11/20/16 19:59 11/07/16 14:07 15 MG Sumatriptan Succinate (Imitrex Sq Inj) 6 mg ONE PRN SQ 11/06/16 19:15 12/06/16 19:14 11/06/16 22:57 6 MG Lorazepam (Ativan Tab) 0.5 mg BID PRN PO 11/07/16 21:00 12/07/16 20:59 Quetiapine Fumarate (seroQUEL TAB) 50 mg Q8 PRN PO 11/07/16 09:45 12/07/16 09:44 Quetiapine Fumarate (seroQUEL TAB) 100 mg HS PO 11/07/16 21:00 12/07/16 20:59 Levothyroxine Sodium (Synthroid Tab) 25 mcg DAILYBB PO 11/08/16 06:30 12/08/16 06:29 Ipratropium [place] (Atrovent Hfa Inhaler) 2 puffs Q6 INH 11/07/16 20:00 12/07/16 19:59 Levalbuterol (Xopenex Hfa Inhaler) 2 puffs Q6 INH 11/07/16 20:00 12/07/16 19:59
[2016-11-07] MEDS ORDERED: OXY/15 PO (16:16)
[2016-11-07] MEDS ORDERED: MORP1TAB11 PO (16:16)
[2016-11-07] MEDS ORDERED: PRD20 PO (16:16)
[2016-11-07] MEDS ORDERED: LVQ750 PO (16:16)
[2016-11-07] MEDS ORDERED: SYN25 PO (16:16)
[2016-11-07 16:30] VITALS: BP 169/99; PULSE 95; TEMP 36.6; O2SAT 94
--- NOTE | 2016-11-07 16:37 | Discharge Instructions ---
Discharge Instructions Admission Reason for Admission: Community Acquired Bacterial Pneumonia, Ingestion Windex Discharge Discharge Diagnosis / Problem: Intentional Suicide, Community-acquired pneumonia, Chronic Pain, COPD Discharge Goals Goal(s): Decrease discomfort, Improve function, Improve disease control Activity Recommendations Activity Limitations: resume your previous activity (as tolerated ) . Instructions / Follow-Up Instructions / Follow-Up Follow up with your primary care provider Dr. Loredo on Nov 09 at 1:50pm Follow up with pain management Follow up with Psych (Appt arranged by liaison Nurse) Seek medical attention if you have any suicidal thought Please complete the antibiotic course Continue steroid for 5 days Current Hospital Diet Patient's current hospital diet: Diabetes Type 2 Diet Discharge Diet Recommended Diet: Diabetes Type 2 Diet Pending Studies Studies pending at discharge: no Laboratory Results Hemoglobin A1c Test 11/06/16 07:31 Range/Units Estimated Average Glucose 128 mg/dl Hemoglobin A1c 6.1 H 4.5-5.6 % Lipid Panel Test 10/07/16 06:55 Range/Units Triglycerides Level 95 0-150 mg/dl Cholesterol Level 171 0-200 mg/dl HDL Cholesterol 41 mg/dl Cholesterol/HDL Ratio 4.2 LDL Cholesterol, Calculated 111 mg/dl Medical Emergencies . Who to Call and When: Medical Emergencies: If at any time you feel your situation is an emergency, please call 911 immediately. . Non-Emergent Contact Non-Emergency issues call your: Primary Care Provider Call Non-Emergent contact if: you have any medication questions . . "Provider Documentation" section prepared by Xu Silvestre. VTE Core Measure Inpt VTE Proph given/why not?: Enoxaparin (Lovenox)[facility] Drug Monitoring Program Search Results: patient reviewed within database, see additional documentation (lorazepam 1 mg was filled on 10/19, his narcotic were refilled on 10/17, flushed his narcotic on the toilet)
[2016-11-07 17:01] VITALS: BP 169/99; PULSE 95; TEMP 36.6; O2SAT 94
[2016-11-07] MEDS ORDERED: LEValbuterol HFA 15GM INHALER INH SCH (20:00)
[2016-11-07] MEDS ORDERED: IPRATROPIUM BROMIDE HFA INHALER INH SCH (20:00)
[2016-11-07] MEDS ORDERED: LORAZEPAM 0.5 MG TAB PO PRN (21:00)
[2016-11-07] MEDS ORDERED: QUETIAPINE FUMARATE 100 MG TAB PO SCH (21:00)
[2016-11-08] MEDS ORDERED: LEVOTHYROXINE 25 MCG TAB PO SCH (06:30)
--- NOTE | 2016-11-09 00:14 | Discharge Summary ---
Discharge Summary Admission Date: Nov 04, 2016 at 22:00 Discharge Date: Nov 07, 2016 Discharge Disposition: Home Principal Diagnosis: INTENTION SUICIDE Secondary Diagnoses/Problems: Intentional Suicide Community-acquired pneumonia Chronic Pain COPD Procedures: ABDOMEN AND PELVIS CT WITH IV CONTRAST CT DOSE: 1637.19 mGy.cm HISTORY: Pain R abd pain; hx toxic ingestion TECHNIQUE: Multiaxial CT images of the abdomen and pelvis were performed following the use of intravenous contrast. COMPARISON STUDY: 07/01/2016 FINDINGS: Mild bibasilar atelectatic change. Minimal right middle lobe infiltrative change. Liver is uniform. Gallbladder is contracted. Small hiatal hernia. Spleen is uniform. Pancreas shows partial fatty replacement. Kidneys negative for hydronephrosis or obstructive change. Nonobstructive 4 mm cortical calcification right kidney unchanged in the prior study. Bowel pattern is nonobstructive throughout. Bladder is midline. No evidence for mass or collection. IMPRESSION: 1. Minimal right middle lobe infiltrative process. 2. Mild bibasilar atelectasis. 3. Otherwise negative abdomen and pelvis Electronically signed by: Owen Flowers M.D. 11/04/2016 9:38 PM Dictated Date/Time: 11/04/2016 9:35 PM CHEST ONE VIEW PORTABLE CLINICAL HISTORY: Overdose dyspnea COMPARISON STUDY: 10/05/2016 FINDINGS: Vague poorly defined parenchymal infiltrate right upper lung and to lesser extent left base. Lungs otherwise appear clear. No evidence for cardiac enlargement. IMPRESSION: Patchy parenchymal infiltrative change right upper lung and left base Electronically signed by: Owen Flowers M.D. 11/04/2016 6:14 PM Consultations: Psych Medication Reconciliation New Medications: Levofloxacin (Levofloxacin) 750 Mg Tab 750 MG PO DAILY@11 for 4 Days, #4 TAB Levothyroxine Sodium (Synthroid) 25 Mcg Tab 25 MCG PO DAILYBB for 30 Days, #30 TAB Prednisone (Prednisone) 20 Mg Tab 20 MG PO DAILY for 5 Days, #5 TAB Changed Medications: Morphine Sulfate (Morphine Sulfate Er) 15 Mg Tab 15 MG PO Q12 for 3 Days, #6 (Changed from: Q8) Oxycodone Hcl (Oxycodone Hcl) 15 Mg Tab 15 MG PO Q8 for 3 Days, #8 (Changed from: 5XD) Continued Medications: Albuterol Hfa (Ventolin Hfa) 200 Puffs/82480 Mcg Aers 2 PUFFS INH QID PRN for SOB/Wheezing Budesonide/Formoterol Fumarate (Symbicort 80/4.5 Inhaler) 120 Puffs/ Aero 1 PUFF INH BID PRN for COPD Cyclobenzaprine HCl (Cyclobenzaprine HCl) 10 Mg Tab 10 MG PO HS PRN for Muscle Spasm Docusate Sodium (Colace) 100 Mg Cap 100 MG PO BID PRN for Constipation, CAP Duloxetine Hcl (Cymbalta) 60 Mg Cap 120 MG PO DAILY, CAP Finasteride (Proscar) 5 Mg Tab 5 MG PO DAILY, TAB Gabapentin (Neurontin) 600 Mg Tab 600 MG PO TID, TAB Hydroxyzine Pamoate (Vistaril) 50 Mg Cap 50 MG PO BID Lorazepam (Lorazepam) 1 Mg Tab 1 MG PO BID PRN for Anxiety Omeprazole (Prilosec) 20 Mg Cap 20 MG PO DAILY Ondansetron (Ondansetron HCl) 4 Mg Tab 4 MG PO QID PRN for Nausea or Vomiting Polyethylene (Polyethylene Glycol 3350) 527 Gm Soln 1 DOSE PO DAILY PRN for Constipation Quetiapine Fumarate (Quetiapine Fumarate) 25 Mg Tab 25 MG PO BID Sumatriptan Succinate (Sumatriptan Succinate) 6 Mg/0.5 Ml Inj 6 MG INJ UD PRN for Migraine MAY REPEAT DOSE ONCE AFTER ONE HOUR IF MIGRAINE PERSISTS Tamsulosin Hcl (Flomax) 0.4 Mg Cap 0.4 MG PO DAILY, CAP Topiramate (Topamax) 200 Mg Tab 200 MG PO HS Trazodone Hcl (Desyrel) 50 Mg Tab 100 MG PO HS Admission Information HPI (per Admitting provider): CHIEF COMPLAINT: Windex ingestion. HISTORY OF PRESENT ILLNESS: Medical history is significant for mood disorder, COPD, ongoing tobacco abuse, chronic pain on narcotics, history of PE status post anticoagulation, chronic anemia baseline hemoglobin 12-13, DM2, diet-controlled. hx recurrent cdif [facility]. In the last few days, patient noted increasing stress due to impending eviction from trailer home. Today, he drank about a cup of Windex cleaning solution. He denies chest pain, dysphagia, sore throat, shortness of breath. Px also noted achy right upper quadrant discomfort. no nausea, no vomiting. Junky cough symptoms in the last few days more than usual. No fever, no chills. He denies aspiration. possible sick contacts. Patient received Levaquin in the Emergency Room for pneumonia. [facility] unable to accept px for Psych admission as per ER MD. Physical Exam (per Admitting): PHYSICAL EXAMINATION: VITAL SIGNS: Blood pressure was noted to be130/80, pulse rate 91, RR 20, temperature 36.6 sats 98 on room air. GENERAL: Noted to be obese, looks older for stated age. No acute distress. SKIN: Pallor. HEENT: Partial alopecia. Pale palpebral conjunctivae, dry mucosa NECK: Short. LUNGS: Expiratory wheezes. HEART: Regular rate and rhythm. ABDOMEN: Some tenderness on the RUQ. EXTREMITIES: No edema, no tenderness. NEUROLOGIC: No gross focality. Hospital Course Community-acquired pneumonia WBC on admission was 17K Afebrile count elevated today due to the steroid On PO Levaquin day 3 Continue Respiratory treatment Saturated well on RA On prednisone 40 mg and taper for the wheezing Clinically stable Intentional Suicidal Ingested Windex Poison control contacted per admitting physician no need to continue monitor inpatient Clinically stable On to observation Denies any suicidal ideation Psych consulted Levothyroxine 25mg was started by psych since pt said that it helps him with the depression as per psych, he was discharged administratively from our mental health unit because he was diverting narcotics yesterday he refused to sign for inpatient psych to our facility because he said that they wanted him to sign a paper with many rules that he had to follow Psych cannot find a facility to accept him for inpatient treatment Discussed case with Dr. Alfaro that would not recommending pursuing an inpatient involuntary commitment as the patient is not actively suicidal or psychotic. Pt is more concerned about his pain meds. He said that he can be discharge home if he got a script that can last him until is next appt with pain management next Sat. from Psych standpoint pt can be discharge home with a safety plan Chronic pain Follow with pain management in [facility] prescription drug monitoring reviewed and his last refilled: lorazepam 1 mg was filled on 10/19 morphine 15mg and oxycodone 15mg were filled on 10/17 his is very upset and flushed all the narcotics meds yesterday Nurse caught him try to divert his pain medication yesterday His narcotic Changed to liquid to facilitate transfer to inpatient psych Pt does not want to be discharged yet because he is out of pain med He said that his next appointment with pain management his next Wednesday I will give him a script to last him until Wednesday since he has an appointment with his PCP on 11/09/16 HEAD[place] On Imitrex prn stable COPD continue respiratory treatment Saturate well on RA started on prednisone taper Stable Tobacco abuse Counseling on smoking cessation Nicotine patch Hx PE status post anticoagulation. stable Chronic Anemia Hgb stable Hx recurrent C-diff On abx for pneumonia If develops any diarrhea, please send stool for C-diff Hypokalemia stable Continue monitor BMP DM type 2 Recent Hba1C 5.6 on 03/05 Controlled with diet most recent hba1c 6.1 DVT px on Lovenox subQ CODE STATUS FULL CODE DISPOSITION Pt is medically stable to transfer to inpatient [facility] Total time spent on discharge = 35 MINUTES This includes examination of the patient, discharge planning, medication reconciliation, and communication with other providers. Discharge Instructions Discharge Instructions Admission Reason for Admission: Community Acquired Bacterial Pneumonia, Ingestion Windex Discharge Discharge Diagnosis / Problem: Intentional Suicide, Community-acquired pneumonia, Chronic Pain, COPD Discharge Goals Goal(s): Decrease discomfort, Improve function, Improve disease control Activity Recommendations Activity Limitations: resume your previous activity (as tolerated ) . Instructions / Follow-Up Instructions / Follow-Up Follow up with your primary care provider Dr. Loredo on Nov 09 at 1:50pm Follow up with pain management Follow up with Psych (Appt arranged by liaison Nurse) Seek medical attention if you have any suicidal thought Please complete the antibiotic course Continue steroid for 5 days Current Hospital Diet Patient's current hospital diet: Diabetes Type 2 Diet Discharge Diet Recommended Diet: Diabetes Type 2 Diet Pending Studies Studies pending at discharge: no Laboratory Results Hemoglobin A1c Test 11/06/16 07:31 Range/Units Estimated Average Glucose 128 mg/dl Hemoglobin A1c 6.1 H 4.5-5.6 % Lipid Panel Test 10/07/16 06:55 Range/Units Triglycerides Level 95 0-150 mg/dl Cholesterol Level 171 0-200 mg/dl HDL Cholesterol 41 mg/dl Cholesterol/HDL Ratio 4.2 LDL Cholesterol, Calculated 111 mg/dl Medical Emergencies . Who to Call and When: Medical Emergencies: If at any time you feel your situation is an emergency, please call 911 immediately. . Non-Emergent Contact Non-Emergency issues call your: Primary Care Provider Call Non-Emergent contact if: you have any medication questions . . "Provider Documentation" section prepared by Xu Silvestre. VTE Core Measure Inpt VTE Proph given/why not?: Enoxaparin (Lovenox)SQ [place] Drug Monitoring Program Search Results: patient reviewed within database, see additional documentation (lorazepam 1 mg was filled on 10/19, his narcotic were refilled on 10/17, flushed his narcotic on the toilet) Additional Copies To Tesha Loredo M.D. (MEDICAL)
[2016-11-09 15:41] LABS: COD UR NEGATIVE NG/ML (CUTOFF=50); HYDROCOD UR NEGATIVE NG/ML (CUTOFF=50); HYDROMOR UR NEGATIVE NG/ML (CUTOFF=50); MORPHINE UR 56 NG/ML (CUTOFF=50); NORHYDROCODONE CONF UR NEGATIVE NG/ML (CUTOFF=50); OXYMORPH UR 2340 NG/ML (CUTOFF=50)
[2016-12-21] MEDS ORDERED: TAMS0.4C38 PO (10:33)
[2016-12-21] MEDS ORDERED: NAPR500T3 PO (11:14)
[2016-12-21] MEDS ORDERED: DOCU-94 PO (16:26)
[2016-12-21] MEDS ORDERED: HYDR50CA2 PO (17:06)
[2016-12-21] MEDS ORDERED: FINA5TAB4 PO (17:06)
[2016-12-21] MEDS ORDERED: TRAZ1TAB5 PO (17:06)
[2016-12-21] MEDS ORDERED: TOPI200T20 PO (17:06)
[2016-12-21] MEDS ORDERED: ATV1 PO (17:06)
[2016-12-21] MEDS ORDERED: SRQ25 PO (17:06)
[2016-12-21] MEDS ORDERED: OMEP20CA9 PO (17:09)
[2016-12-21] MEDS ORDERED: SUMA1INJ5 INJ (17:56)
[2016-12-21] MEDS ORDERED: VNTHFA/IN INH (18:15)
[2016-12-21] MEDS ORDERED: DULO60CA44 PO (18:15)
[2016-12-21] MEDS ORDERED: MRLP527 PO (19:55)
[2017-01-24] MEDS ORDERED: OXY/15 PO (13:33)
[2017-05-09] MEDS ORDERED: GABA1CAP4 PO (16:07)
== END 2016-11-07 17:20 | disposition home or self-care (01) | DRG 917 ==
LOC: ENRESERVDT → CANRESERV → ENRESERVTM → C.EDB 17:08 → C.MS2W 22:00 → EDBEDREQ 22:37 → C.MS2W 11-06 17:36
PROVIDERS: ADMIT Internal Medicine; ATTEND Internal Medicine
DX: T65.892A Toxic effect of other specified substances, intentional self-harm, initial encounter (principal); J18.9 Pneumonia, unspecified organism; F11.20 Opioid dependence, uncomplicated; R45.851 Suicidal ideations; Z68.43 Body mass index [BMI] 50.0-59.9, adult; J44.9 Chronic obstructive pulmonary disease, unspecified; E87.6 Hypokalemia; F32.9 Major depressive disorder, single episode, unspecified; D64.9 Anemia, unspecified; E66.9 Obesity, unspecified; F41.9 Anxiety disorder, unspecified; N40.0 Benign prostatic hyperplasia without lower urinary tract symptoms; F17.210 Nicotine dependence, cigarettes, uncomplicated; E11.9 Type 2 diabetes mellitus without complications; F60.9 Personality disorder, unspecified; G89.29 Other chronic pain; T38.0X5A Adverse effect of glucocorticoids and synthetic analogues, initial encounter; G43.909 Migraine, unspecified, not intractable, without status migrainosus; M54.2 Cervicalgia; Z86.19 Personal history of other infectious and parasitic diseases; Z59.0 Homelessness; Z79.52 Long term (current) use of systemic steroids; Z91.19 Patient's noncompliance with other medical treatment and regimen; Z86.711 Personal history of pulmonary embolism; Z76.5 Malingerer [conscious simulation]; Z79.899 Other long term (current) drug therapy

== ENCOUNTER 2016-11-09 13:07 | Emergency (ER) | payer OTHER ==
[~2016-11-09] VITALS: Ht 182.9 cm; Wt 144.6 kg
[~2016-11-09 13:07] MED LIST changes: -ALBU1AER9 INH; -CYCL10TA6 PO; -CYM60 PO; +LVQ750 PO; -NALO1SPR INTNAS; -NRN600 PO; +OXY/15 PO; +PRD20 PO; +SYN25 PO
[2016-11-09 13:21] VITALS: TEMP 37; Ht 182.9 cm; Wt 144.6 kg
[2016-11-09] MEDS ORDERED: LEVOFLOXACIN 250 MG TAB PO STA (13:40)
--- NOTE | 2016-11-09 13:57 | EMERGENCY ROOM VISIT NOTE ---
History Report prepared by Alek: Magnus Garnica Under the Supervision of: Dr. Stanton Dyer D.O. First contact with patient: 13:27 Chief Complaint: MENTAL HEALTH EVALUATION Stated Complaint: SUICIDAL DO NOT FEEL WELL History of Present Illness The patient is a 46 year old male who presents to the Emergency Room with complaints of persistent suicidal ideations since being discharged from the hospital two days ago. 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 The patient was admitted medically for pneumonia. He was evaluated in the hospital by [facility] but was not placed. The patient was prescribed antibiotics, which he has yet to fill. The patient currently complains of a low grade fever. The patient saw his therapist today, who recommended he come to the ED for his persistent suicidal thoughts. The patient has not attempted to overdose since being discharged from the hospital. The patient was admitted to [facility] in the past. Source of History: patient Onset: two days ago Position: other (psyche) Quality: other (suicidal ideations) Timing: other (persistent) Associated Symptoms: + fevers Review of Systems See HPI for pertinent positives & negatives. A total of 10 systems reviewed and were otherwise negative. Past Medical & Surgical Medical Problems: (1) Anxiety (2) Anxiety and depression (3) BPH (benign prostatic hypertrophy) (4) Chronic pain syndrome (5) Community acquired bacterial pneumonia (6) COPD, moderate (7) Diabetes (8) Drug ingestion (9) Ingestion of substance (10) Narcotic dependence (11) Obesity (12) Personality disorder (13) Positive blood culture (14) Pulmonary embolism (15) Suicidal ideation (16) Urinary retention Surgical Problems: (1) History of back surgery Family History Cancer Diabetes mellitus Heart disease Kidney disease Kidney stones Lung disease Social History Smoking Status: Current Every Day Smoker Alcohol Use: none Drug Use: none Marital Status: in relationship Housing Status: lives with family, [employer] Occupation Status: disabled Current/Historical Medications Scheduled Duloxetine Hcl (Cymbalta), 120 MG PO DAILY Finasteride (Proscar), 5 MG PO DAILY Gabapentin (Neurontin), 600 MG PO TID Hydroxyzine Pamoate (Vistaril), 50 MG PO BID Levofloxacin (Levofloxacin), 750 MG PO DAILY@11 Levothyroxine Sodium (Synthroid), 25 MCG PO DAILYBB Morphine Sulfate (Morphine Sulfate Er), 15 MG PO Q12 Omeprazole (Prilosec), 20 MG PO DAILY Oxycodone Hcl (Oxycodone Hcl), 15 MG PO Q8 Prednisone (Prednisone), 20 MG PO DAILY Quetiapine Fumarate (Quetiapine Fumarate), 25 MG PO BID Tamsulosin Hcl (Flomax), 0.4 MG PO DAILY Topiramate (Topamax), 200 MG PO HS Trazodone Hcl (Desyrel), 100 MG PO HS Scheduled PRN Albuterol Hfa (Ventolin Hfa), 2 PUFFS INH QID PRN for SOB/Wheezing Budesonide/Formoterol Fumarate (Symbicort 80/4.5 Inhaler), 1 PUFF INH BID PRN for COPD Cyclobenzaprine HCl (Cyclobenzaprine HCl), 10 MG PO HS PRN for Muscle Spasm Docusate Sodium (Colace), 100 MG PO BID PRN for Constipation Lorazepam (Lorazepam), 1 MG PO BID PRN for Anxiety Ondansetron (Ondansetron HCl), 4 MG PO QID PRN for Nausea or Vomiting Polyethylene (Polyethylene Glycol 3350), 1 DOSE PO DAILY PRN for Constipation Sumatriptan Succinate (Sumatriptan Succinate), 6 MG INJ UD PRN for Migraine Allergies Coded Allergies: Fentanyl (Verified Allergy, Intermediate, RASH/HIVES/SKIN REDNESS, 11/09/16 ) FROM PATCH ONLY Valproic Acid (Verified Adverse Reaction, Intermediate, PANCREATITIS, 11/09) Valproic Acid and Related (Verified Adverse Reaction, Intermediate, PANCREATITS, 11/09/16) Physical Exam Vital Signs Date Time Temp Pulse Resp B/P Pulse Ox O2 Delivery O2 Flow Rate FiO2 11/09/16 19:08 89 18 96 Room Air 11/09/16 15:51 91 18 152/90 98 Room Air 11/09/16 13:21 37.0 100 20 130/80 95 Room Air Physical Exam GENERAL: Patient is awake, alert, and in no acute distress. Patient is resting comfortably and showing no signs of anxiety EYES: The conjunctivae are clear. The pupils are round and reactive. EARS, NOSE, MOUTH AND THROAT: The nose is without any evidence of any deformity. Mucous membranes are moist tongue is midline NECK: The neck is nontender and supple. RESPIRATORY: Normal respiratory effort is noted there is no evidence of wheezing rhonchi or rales CARDIOVASCULAR: Regular rate and rhythm noted there no murmurs rubs or gallops normal S1 normal S2 GASTROINTESTINAL: The abdomen is soft. Bowel sounds are present in all quadrants. Abdomen is nontender MUSCULOSKELETAL/EXTREMITIES: There is no evidence of gross deformity full range of motion is noted in the hips and shoulders SKIN: There is no obvious evidence of any rash. There are no petechiae, pallor or cyanosis noted. Trace pedal edema noted bilaterally. 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 Medical Decision & Procedures Laboratory Results 11/09/16 14:55 Red Blood Count 4.96, Mean Corpuscular Volume 82.5, Mean Corpuscular Hemoglobin 26.4, Mean Corpuscular Hemoglobin Concent 32.0, Mean Platelet Volume 10.0, Neutrophils (%) (Auto) 64.6, Lymphocytes (%) (Auto) 26.8, Monocytes (%) (Auto) 5.5, Eosinophils (%) (Auto) 1.3, Basophils (%) (Auto) 0.8, Neutrophils # (Auto) 7.66, Lymphocytes # (Auto) 3.18, Monocytes # (Auto) 0.65, Eosinophils # (Auto) 0.15, Basophils # (Auto) 0.09 11/09/16 14:55 Test 11/09/16 14:55 11/09/16 15:15 White Blood Count 11.85 K/uL (4.8-10.8) Red Blood Count 4.96 M/uL (4.7-6.1) Hemoglobin 13.1 g/dL (14.0-18.0) Hematocrit 40.9 % (42-52) Mean Corpuscular Volume 82.5 fL (80-100) Mean Corpuscular Hemoglobin 26.4 pg (25-34) Mean Corpuscular Hemoglobin Concent 32.0 g/dl (32-36) Platelet Count 415 K/uL (130-400) Mean Platelet Volume 10.0 fL (7.4-10.4) Neutrophils (%) (Auto) 64.6 % Lymphocytes (%) (Auto) 26.8 % Monocytes (%) (Auto) 5.5 % Eosinophils (%) (Auto) 1.3 % Basophils (%) (Auto) 0.8 % Neutrophils # (Auto) 7.66 K/uL (1.4-6.5) Lymphocytes # (Auto) 3.18 K/uL (1.2-3.4) Monocytes # (Auto) 0.65 K/uL (0.11-0.59) Eosinophils # (Auto) 0.15 K/uL (0-0.5) Basophils # (Auto) 0.09 K/uL (0-0.2) RDW Standard Deviation 52.0 fL (36.4-46.3) RDW Coefficient of Variation 17.4 % (11.5-14.5) Immature Granulocyte % (Auto) 1.0 % Immature Granulocyte # (Auto) 0.12 K/uL (0.00-0.02) Anion Gap 7.0 mmol/L (3-11) Est Creatinine Clear Calc Drug Dose 136.3 ml/min Estimated GFR () 104.1 Estimated GFR (Non- 89.9 BUN/Creatinine Ratio 19.3 (10-20) Calcium Level 9.1 mg/dl (8.5-10.1) Total Bilirubin 0.3 mg/dl (0.2-1) Direct Bilirubin < 0.1 mg/dl (0-0.2) Aspartate Amino Transf (AST/SGOT) 16 U/L (15-37) Alanine Aminotransferase (ALT/SGPT) 32 U/L (12-78) Alkaline Phosphatase 67 U/L (45-117) Total Protein 6.7 gm/dl (6.4-8.2) Albumin 2.9 gm/dl (3.4-5.0) Globulin 3.8 gm/dl (2.5-4.0) Albumin/Globulin Ratio 0.8 (0.9-2) Thyroid Stimulating Hormone (TSH) 0.568 uIu/ml (0.300-4.500) Salicylates Level < 1.7 mg/dl (2.8-20) Acetaminophen Level < 2 ug/ml (10-30) Ethyl Alcohol mg/dL < 3.0 mg/dl (0-3) Urine Color YELLOW Urine Appearance CLEAR (CLEAR) Urine pH 5.5 (4.5-7.5) Urine Specific [place] 1.019 (1.000-1.030) Urine Protein NEG (NEG) Urine Glucose (UA) NEG (NEG) Urine Ketones NEG (NEG) Urine Occult Blood NEG (NEG) Urine Nitrite NEG (NEG) Urine Bilirubin NEG (NEG) Urine Urobilinogen NEG (NEG) Urine Leukocyte Esterase NEG (NEG) Urine Opiates Screen POS (NEG) Urine Methadone, Qualitative NEG (NEG) Urine Barbiturates NEG (NEG) Urine Phencyclidine (PCP) Level NEG (NEG) Ur Amphetamine/Methamphetamine NEG (NEG) MDMA (Ecstasy) Screen NEG (NEG) Urine Benzodiazepines Screen NEG (NEG) Urine Cocaine Metabolite NEG (NEG) Urine Marijuana (THC) NEG (NEG) Laboratory results per my review. Medications Administered Medications (Trade) Dose Ordered Sig/Amalia Route Start Time Stop Time Status Last Admin Dose Admin Levofloxacin (Levaquin Tab) 750 mg NOW STAT PO 11/09/16 13:40 11/09/16 13:42 DC 11/09/16 13:58 750 MG ED Course 1335: The patient was evaluated in room A8. A complete history and physical examination were performed. 1340: Levaquin 750 mg PO. 1800: The patient was denied by [facility], and refuses to go to the [facility]. 1940: Had a lengthy discussion with the patient. He will now be discharged. 2000: Ativan 1 mg PO homepack. Medical Decision Prior records/ancillary studies reviewed. Triage Nursing notes reviewed. Additional history obtained from . The patient's history was concerning for possible psychiatric disturbance. Differential diagnosis: Etiologies such as mood disorder, infection, hypoglycemia, electrolyte abnormalities, cardiac sources, intracerebral event, toxicologic, neurologic, as well as others were entertained. The patient is a 46-year-old male who presented to the emergency department for a mental evaluation. The patient has been seen in our facility multiple times for similar complaints. Most recently he was seen in our facility and was admitted to the medical floor because he also had pneumonia. The patient states that he did not get his prescription filled and was treated with Levaquin in the emergency department. The patient was medically cleared in the emergency department and evaluated by the emergency Department mental health delegate. He was also evaluated by the delegate from [address] [place] [id number]. Please see their notes for assessment. The patient does not wish to stay at [address] [place] [address] because they have many requirements of him especially given his issues with medication noncompliance. The patient was offered further evaluation and bed search but he does not wish to go outside of the area in unfortunately the mental health delegate in the emergency department has exhausted all the local and near mental health inpatient facilities. The patient feels that he is safe to be discharged but still has significant anxiety problems. He was treated with anxiety medication in the emergency department. I'm concerned that the patient does have significant underlying controlled substance issues. I do not feel comfortable giving him narcotics. I'm also not comfortable giving him a prescription for benzodiazepines. He was given a home pack in the emergency department which I felt may help him follow-up with his primary care physician and his primary therapist tomorrow but he was also encouraged to call crisis or return to the emergency department immediately if symptoms change worsen or the need arises. Impression Primary Impression: Anxiety Additional Impressions: Depression Suicidal ideation PNA (pneumonia) Medical non-compliance Scribe Attestation The scribe's documentation has been prepared under my direction and personally reviewed by me in its entirety. I confirm that the note above accurately reflects all work, treatment, procedures, and medical decision making performed by me. Departure Information Dispostion Home / Self-Care Referrals Tesha Loredo M.D. (MEDICAL) (PCP) Forms HOME CARE DOCUMENTATION FORM, IMPORTANT VISIT INFORMATION Patient Instructions Anxiety Disorder, Depression Counseling, My [facility] Additional Instructions Continue all medications as prescribed. Be sure to start the antibiotic the your started on over the weekend. Follow-up with your therapist as well as her primary physician as soon as possible. Call crisis or return to the emergency department immediately if symptoms change worsen or the need arises. Problem Qualifiers
[2016-11-09 15:11] LABS: BASO % 0.8 %; BASO ABS # 0.09 K/uL (0-0.2); COMPLETE YES; EOS % 1.3 %; HEMATOCRIT 40.9 % (42-52); LYMPH % 26.8 %; LYMPH ABS # 3.18 K/uL (1.2-3.4); MEAN CELL VOLUME 82.5 fL (80-100); MEAN CORPUSCULAR HEMOGLOBIN 26.4 pg (25-34); MONO % 5.5 %; NEUT % 64.6 %; PLATELET COUNT 415 K/uL (130-400); RED BLOOD COUNT 4.96 M/uL (4.7-6.1); WHITE BLOOD COUNT 11.85 K/uL (4.8-10.8)
[2016-11-09 15:30] LABS: URINE APPEARANCE CLEAR (CLEAR); URINE BILIRUBIN NEG (NEG); URINE COLOR YELLOW; URINE NITRITE NEG (NEG); URINE PH 5.5 (4.5-7.5); URINE SPECIFIC GRAVITY 1.019 (1.000-1.030); UROBILINOGEN NEG (NEG)
[2016-11-09 15:34] LABS: MANUAL MICROSCOPIC REQUIRED? NO; REVIEW REQ? NO
[2016-11-09 15:39] LABS: ALKALINE PHOSPHATASE 67 U/L (45-117); ALT/SGPT 32 U/L (12-78); AST/SGOT 16 U/L (15-37); BLOOD UREA NITROGEN 19 mg/dl (7-18); BUN/CREATININE RATIO 19.3 (10-20); CALCIUM 9.1 mg/dl (8.5-10.1); CARBON DIOXIDE 27 mmol/L (21-32); CHLORIDE 108 mmol/L (98-107); GLUCOSE 90 mg/dl (70-99); POTASSIUM 4.5 mmol/L (3.5-5.1); SODIUM 142 mmol/L (136-145)
[2016-11-09 15:46] LABS: ACETAMINOPHEN < 2 ug/ml (10-30)
[2016-11-09 15:50] LABS: ALB/GLOB RATIO 0.8 (0.9-2); THYROID STIMULATING HORMONE 0.568 uIu/ml (0.300-4.500)
[2016-11-09 16:11] LABS: BENZODIAZEPINE, URINE NEG (NEG); COCAINE,URINE NEG (NEG); PHENCYCLIDINE, URINE NEG (NEG)
[2016-11-09] MEDS ORDERED: ATIVAN 1MG HOMEPACK PO ONE (20:00)
[2016-11-09 20:14] VITALS: BP 152/106; PULSE 86; O2SAT 96
[2016-11-13 15:21] LABS: COD UR NEGATIVE NG/ML (CUTOFF=50); HYDROCOD UR NEGATIVE NG/ML (CUTOFF=50); HYDROMOR UR 59 NG/ML (CUTOFF=50); MORPHINE UR 4590 NG/ML (CUTOFF=50); NORHYDROCODONE CONF UR NEGATIVE NG/ML (CUTOFF=50); OXYMORPH UR 973 NG/ML (CUTOFF=50)
[2016-12-21] MEDS ORDERED: TAMS0.4C38 PO (10:33)
[2016-12-21] MEDS ORDERED: NAPR500T3 PO (11:14)
[2016-12-21] MEDS ORDERED: DOCU-94 PO (16:26)
[2016-12-21] MEDS ORDERED: FINA5TAB4 PO (17:06)
[2016-12-21] MEDS ORDERED: TOPI200T20 PO (17:06)
[2016-12-21] MEDS ORDERED: ATV1 PO (17:06)
[2016-12-21] MEDS ORDERED: TRAZ1TAB5 PO (17:06)
[2016-12-21] MEDS ORDERED: HYDR50CA2 PO (17:06)
[2016-12-21] MEDS ORDERED: SRQ25 PO (17:06)
[2016-12-21] MEDS ORDERED: OMEP20CA9 PO (17:09)
[2016-12-21] MEDS ORDERED: SUMA1INJ5 INJ (17:56)
[2016-12-21] MEDS ORDERED: DULO60CA44 PO (18:15)
[2016-12-21] MEDS ORDERED: VNTHFA/IN INH (18:15)
[2016-12-21] MEDS ORDERED: MRLP527 PO (19:55)
[2017-01-24] MEDS ORDERED: OXY/15 PO (13:33)
[2017-05-09] MEDS ORDERED: GABA1CAP4 PO (16:07)
== END 2016-11-09 20:17 | disposition home or self-care (01) ==
LOC: C.EDB 13:09 → C.EDA 20:17
DX: F41.9 Anxiety disorder, unspecified (principal); F33.8 Other recurrent depressive disorders; R45.851 Suicidal ideations; J18.9 Pneumonia, unspecified organism; N40.0 Benign prostatic hyperplasia without lower urinary tract symptoms; J44.9 Chronic obstructive pulmonary disease, unspecified; E11.9 Type 2 diabetes mellitus without complications; E66.9 Obesity, unspecified; Z83.3 Family history of diabetes mellitus; Z82.49 Family history of ischemic heart disease and other diseases of the circulatory system; F17.200 Nicotine dependence, unspecified, uncomplicated; Z79.899 Other long term (current) drug therapy

== ENCOUNTER 2016-12-21 10:33 | Emergency (ER) | payer OTHER ==
[~2016-12-21] VITALS: Ht 182.9 cm; Wt 150.3 kg
[2016-12-21 10:37] VITALS: TEMP 36.8
[2016-12-21] MEDS ORDERED: SODIUM CHLORIDE 0.9% 1000ML 1,000 ML IV SCH (10:50)
--- NOTE | 2016-12-21 10:56 | EMERGENCY ROOM VISIT NOTE ---
History Report prepared by Alek: Michael Burleson Under the Supervision of: Dr. Stanton Dyer D.O. First contact with patient: 10:41 Chief Complaint: WEAKNESS Stated Complaint: WEAKNESS IN RIGHT HAND History of Present Illness The patient is a 46 year old male who presents to the Emergency Room with complaints of persistent right hand numbness that started a few days ago. He says that the hand is paralyzed and he cannot use the hand at all. The patient has had some chest pain as well, along with a stiff neck, headache, left arm pain, weakness, and leg swelling. He says that he called his primary care physician's office this morning, and the patient was told to come here. He denies any recent head injuries. The patient has a history of a pulmonary embolism. He is not currently on any blood thinners. The patient does not drink any alcohol. Source of History: patient Onset: A few days ago Position: hand (right) Symptom Intensity: right hand is "paralyzed" Quality: numbness Timing: other (persistent) Associated Symptoms: + chest pain, + headache, + weakness Note: Associated symptoms: Stiff neck, left arm pain, leg swelling. Review of Systems See HPI for pertinent positives & negatives. A total of 10 systems reviewed and were otherwise negative. Past Medical & Surgical Medical Problems: (1) Anxiety (2) Anxiety and depression (3) BPH (benign prostatic hypertrophy) (4) Chronic pain syndrome (5) Community acquired bacterial pneumonia (6) COPD, moderate (7) Diabetes (8) Drug ingestion (9) Ingestion of substance (10) Narcotic dependence (11) Obesity (12) Personality disorder (13) Positive blood culture (14) Pulmonary embolism (15) Suicidal ideation (16) Urinary retention Surgical Problems: (1) History of back surgery Family History Cancer Diabetes mellitus Heart disease Kidney disease Kidney stones Lung disease Social History Smoking Status: Unknown if Ever Smoked Alcohol Use: none Drug Use: none Marital Status: in relationship Housing Status: lives with family, assisted Occupation Status: disabled Current/Historical Medications Scheduled Duloxetine Hcl (Cymbalta), 120 MG PO DAILY Finasteride (Proscar), 5 MG PO DAILY Gabapentin (Neurontin), 600 MG PO TID Hydroxyzine Pamoate (Vistaril), 50 MG PO BID Levothyroxine Sodium (Synthroid), 25 MCG PO DAILYBB Morphine Sulfate (Morphine Sulfate Er), 15 MG PO Q12 Naproxen (Naproxen), 500 MG PO BID Omeprazole (Prilosec), 20 MG PO DAILY Oxycodone Hcl (Oxycontin), 15 MG PO 5XD Quetiapine Fumarate (Quetiapine Fumarate), 25 MG PO BID Tamsulosin Hcl (Flomax), 0.4 MG PO DAILY Topiramate (Topamax), 200 MG PO HS Trazodone Hcl (Desyrel), 100 MG PO HS Scheduled PRN Albuterol Hfa (Ventolin Hfa), 2 PUFFS INH QID PRN for SOB/Wheezing Budesonide/Formoterol Fumarate (Symbicort 80/4.5 Inhaler), 1 PUFF INH BID PRN for COPD Cyclobenzaprine HCl (Cyclobenzaprine HCl), 10 MG PO HS PRN for Muscle Spasm Docusate Sodium (Colace), 100 MG PO BID PRN for Constipation Lorazepam (Lorazepam), 1 MG PO BID PRN for Anxiety Ondansetron (Ondansetron HCl), 4 MG PO QID PRN for Nausea or Vomiting Polyethylene (Polyethylene Glycol 3350), 1 DOSE PO DAILY PRN for Constipation Sumatriptan Succinate (Sumatriptan Succinate), 6 MG INJ UD PRN for Migraine Allergies Coded Allergies: Fentanyl (Verified Allergy, Intermediate, RASH/HIVES/SKIN REDNESS, 12/21/16) FROM PATCH ONLY Valproic Acid (Verified Adverse Reaction, Intermediate, PANCREATITIS, ) Valproic Acid and Related (Verified Adverse Reaction, Intermediate, PANCREATITS, 12/21/16) Physical Exam Vital Signs Date Time Temp Pulse Resp B/P Pulse Ox O2 Delivery O2 Flow Rate FiO2 12/21/16 13:02 88 16 122/77 99 12/21/16 12:16 96 12/21/16 11:51 93 18 122/88 95 Room Air 12/21/16 11:42 95 Room Air 12/21/16 10:37 36.8 100 20 124/83 95 Room Air Physical Exam GENERAL: Patient is awake, alert, and in no acute distress. Patient is resting comfortably and showing no signs of anxiety EYES: The conjunctivae are clear. The pupils are round and reactive. EARS, NOSE, MOUTH AND THROAT: The nose is without any evidence of any deformity. Mucous membranes are moist tongue is midline NECK: The neck is nontender and supple. RESPIRATORY: Normal respiratory effort is noted there is no evidence of wheezing rhonchi or rales CARDIOVASCULAR: Regular rate and rhythm noted there no murmurs rubs or gallops normal S1 normal S2 GASTROINTESTINAL: The abdomen is soft. Bowel sounds are present in all quadrants. Abdomen is nontender MUSCULOSKELETAL/EXTREMITIES: There is no evidence of gross deformity full range of motion is noted in the hips and shoulders SKIN: There is no obvious evidence of any rash. There are no petechiae, pallor or cyanosis noted. NEUROLOGIC: Patient is awake alert and oriented x3. Strength was symmetric in lower extremity. Patient holds right upper extremity with flexion at right wrist. Difficulty with extension of right wrist and extension of right thumb. Pulses were symmetric. Medical Decision & Procedures ER Provider Diagnostic Interpretation: Radiology results as stated below per my review and radiologist interpretation: HEAD CT NONCONTRAST CT DOSE: 1177.06 mGy.cm HISTORY: Mental status change Stroke TECHNIQUE: Multiaxial CT images of the head were performed without the use of intravenous contrast. Comparison: 07/01/2016 Findings: The paranasal sinuses and mastoid air cells are clear. The calvarium and skull base are intact. The ventricles and sulci are within normal limits. There is no mass, hematoma, midline shift, or acute infarct. Impression: No acute intracranial abnormality. Electronically signed by: Owen Flowers M.D. 12/21/2016 11:36 AM Dictated Date/Time: 12/21/2016 11:35 AM CHEST ONE VIEW PORTABLE HISTORY: Right hand weakness. Stroke COMPARISON: Chest 11/04/2016. FINDINGS: Right upper lobe airspace opacity appears to have resolved. The left lung remains clear. The heart is stable in size. Stable blunting of the right lateral costophrenic sulcus suggests a trace pleural effusion. No pneumothorax. IMPRESSION: Right upper lobe airspace opacity appears to have resolved. Trace right pleural effusion persists. Electronically signed by: Vidal Keller M.D. 12/21/2016 11:51 AM Dictated Date/Time: 12/21/2016 11:[address] DOSE: HISTORY: Right upper extremity weakness. TECHNIQUE: Multiaxial CT images of the cervical spine were performed and reformatted in the sagittal and coronal plane without the use of contrast. COMPARISON: Cervical spine CT 07/01/2016. FINDINGS: No fractures. No subluxation. Prevertebral soft tissues and the C1-C2 interval are intact. No pneumothorax. Mild reversal of the normal lordotic curvature. Mild facet degenerative changes within the lower cervical spine. Mild disc space narrowing at C5-C6 and C6-C7 with small endplate osteophytes. This remains unchanged. There is mild to moderate central canal narrowing at C5-C6 and C6-C7 which is also unchanged. IMPRESSION: No fractures within the cervical spine. Degenerative changes as described above. Electronically signed by: Vidal Keller M.D. 12/21/2016 11:47 AM Dictated Date/Time: 12/21/2016 11:41 AM Laboratory Results 12/21/16 11:40 Red Blood Count 4.36, Mean Corpuscular Volume 81.7, Mean Corpuscular Hemoglobin 27.8, Mean Corpuscular Hemoglobin Concent 34.0, Mean Platelet Volume 9.8, Neutrophils (%) (Auto) 58.3, Lymphocytes (%) (Auto) 26.1, Monocytes (%) (Auto) 8.5, Eosinophils (%) (Auto) 6.1, Basophils (%) (Auto) 0.6, Neutrophils # (Auto) 5.22, Lymphocytes # (Auto) 2.34, Monocytes # (Auto) 0.76, Eosinophils # (Auto) 0.55, Basophils # (Auto) 0.05 12/21/16 11:40 Test 12/21/16 11:10 12/21/16 11:40 Urine Color YELLOW Urine Appearance CLEAR (CLEAR) Urine pH 5.0 (4.5-7.5) Urine Specific Bradford 1.023 (1.000-1.030) Urine Protein NEG (NEG) Urine Glucose (UA) NEG (NEG) Urine Ketones NEG (NEG) Urine Occult Blood NEG (NEG) Urine Nitrite NEG (NEG) Urine Bilirubin NEG (NEG) Urine Urobilinogen NEG (NEG) Urine Leukocyte Esterase TRACE (NEG) Urine WBC (Auto) 5-10 /hpf (0-5) Urine RBC (Auto) 0-4 /hpf (0-4) Urine Hyaline Casts (Auto) 1-5 /lpf (0-5) Urine Epithelial Cells (Auto) 0-5 /lpf (0-5) Urine Bacteria (Auto) NEG (NEG) Urine Renal Epithelial Cells /lpf (0-5) Urine Pathogenic Casts /lpf (0) Urine Opiates Screen POS (NEG) Urine Methadone, Qualitative NEG (NEG) Urine Barbiturates NEG (NEG) Urine Phencyclidine (PCP) Level NEG (NEG) Ur Amphetamine/Methamphetamine NEG (NEG) MDMA (Ecstasy) Screen POS (NEG) Urine Benzodiazepines Screen NEG (NEG) Urine Cocaine Metabolite NEG (NEG) Urine Marijuana (THC) NEG (NEG) White Blood Count 8.96 K/uL (4.8-10.8) Red Blood Count 4.36 M/uL (4.7-6.1) Hemoglobin 12.1 g/dL (14.0-18.0) Hematocrit 35.6 % (42-52) Mean Corpuscular Volume 81.7 fL (80-100) Mean Corpuscular Hemoglobin 27.8 pg (25-34) Mean Corpuscular Hemoglobin Concent 34.0 g/dl (32-36) Platelet Count 236 K/uL (130-400) Mean Platelet Volume 9.8 fL (7.4-10.4) Neutrophils (%) (Auto) 58.3 % Lymphocytes (%) (Auto) 26.1 % Monocytes (%) (Auto) 8.5 % Eosinophils (%) (Auto) 6.1 % Basophils (%) (Auto) 0.6 % Neutrophils # (Auto) 5.22 K/uL (1.4-6.5) Lymphocytes # (Auto) 2.34 K/uL (1.2-3.4) Monocytes # (Auto) 0.76 K/uL (0.11-0.59) Eosinophils # (Auto) 0.55 K/uL (0-0.5) Basophils # (Auto) 0.05 K/uL (0-0.2) RDW Standard Deviation 51.8 fL (36.4-46.3) RDW Coefficient of Variation 17.3 % (11.5-14.5) Immature Granulocyte % (Auto) 0.4 % Immature Granulocyte # (Auto) 0.04 K/uL (0.00-0.02) Prothrombin Time 10.8 SECONDS (9.0-12.0) Prothromb Time International Ratio 1.0 (0.9-1.1) Activated Partial Thromboplast Time 28.6 SECONDS (21.0-31.0) Partial Thromboplastin Ratio 1.1 Anion Gap 6.0 mmol/L (3-11) Est Creatinine Clear Calc Drug Dose 99.5 ml/min Estimated GFR () 69.3 Estimated GFR (Non- 59.8 BUN/Creatinine Ratio 9.7 (10-20) Calcium Level 8.5 mg/dl (8.5-10.1) Magnesium Level 2.1 mg/dl (1.8-2.4) Total Creatine Kinase 127 U/L (39-308) Creatine Kinase MB 1.2 ng/ml (0.5-3.6) Creatine Kinase MB Ratio 0.9 (0-3.0) Troponin I < 0.015 ng/ml (0-0.045) Laboratory results per my review. Medications Administered Medications (Trade) Dose Ordered Sig/Amalia Route Start Time Stop Time Status Last Admin Dose Admin Sodium Chloride (Nss 1000ml) 1,000 ml @ 50 mls/hr Q20H IV 12/21/16 10:50 12/21/16 13:14 DC 12/21/16 11:51 50 MLS/HR ECG Indication: other (hand numbness) Rate (beats per minute): 100 Rhythm: normal sinus Findings: no ectopy, other (no acute ST segment abnormalities, incomplete RBBB pattern noted) Change: no significant change (compared to November 04 2016) ED Course 1048: The patient was evaluated in room C6. A complete history and physical examination were performed. 1050: Ordered NSS 1000 ml @ 50 mls/hr IV. 1216: I reevaluated the patient and he is feeling better. 1232: I reevaluated the patient and he is resting comfortably. The patient verbally expressed understanding and agreement of the treatment plan. The patient will be discharged. Medical Decision Differential diagnosis: Etiologies such as metabolic, infection, hypo/hyperglycemia, electrolyte abnormalities, cardiac sources, intracerebral event, toxicologic, neurologic, as well as others were entertained. Nursing notes reviewed. The patient is a 46-year-old male who presented to the emergency department for an evaluation of wrist tenderness and wrist drop. The patient states that over the weekend he started having wrist drop. He came to the emergency department at the request of his primary care physician for possible stroke evaluation. The patient did not have any focal neurologic deficits. The patient's exam appeared to be consistent with wrist drop. I discussed the patient's laboratory and radiographic studies with him. At this time I feel this is consistent with a nerve palsy. He was placed in a splint and encouraged to follow-up with orthopedics as soon as possible. He was also encouraged return to the emergency department immediately if symptoms change worsen or the need arises. Impression Primary Impression: Wrist drop, right wrist Additional Impression: Wrist weakness Scribe Attestation The scribe's documentation has been prepared under my direction and personally reviewed by me in its entirety. I confirm that the note above accurately reflects all work, treatment, procedures, and medical decision making performed by me. Departure Information Dispostion Home / Self-Care Referrals Tesha Loredo M.D. (MEDICAL) (PCP) Aric Amaro M.D. Forms HOME CARE DOCUMENTATION FORM, IMPORTANT VISIT INFORMATION Patient Instructions ED Drop Wrist, My [facility] Additional Instructions Continue all medications as prescribed. Call the orthopedic physician to schedule a follow-up appointment. Continue to use the splint until your cleared by orthopedic physician. Problem Qualifiers
[2016-12-21 11:00] VITALS: Ht 182.9 cm; Wt 150.3 kg
[2016-12-21] MEDS ORDERED: OXYC15TA89 PO (11:14)
[2016-12-21 11:31] LABS: URINE APPEARANCE CLEAR (CLEAR); URINE BILIRUBIN NEG (NEG); URINE COLOR YELLOW; URINE NITRITE NEG (NEG); URINE SPECIFIC GRAVITY 1.023 (1.000-1.030); UROBILINOGEN NEG (NEG)
[2016-12-21 11:34] LABS: MANUAL MICROSCOPIC REQUIRED? NO; REVIEW REQ? YES
--- NOTE | 2016-12-21 11:37 | DIAGNOSTIC IMAGING REPORT ---
HEAD CT NONCONTRAST CT DOSE: 1177.06 mGy.cm HISTORY: Mental status change Stroke TECHNIQUE: Multiaxial CT images of the head were performed without the use of intravenous contrast. Comparison: 07/01/2016 Findings: The paranasal sinuses and mastoid air cells are clear. The calvarium and skull base are intact. The ventricles and sulci are within normal limits. There is no mass, hematoma, midline shift, or acute infarct. Impression: No acute intracranial abnormality. Electronically signed by: Owen Flowers M.D. 12/21/2016 11:36 AM Dictated Date/Time: 12/21/2016 11:35 AM
[2016-12-21 11:42] VITALS: O2SAT 95
[2016-12-21 11:48] LABS: URINE EPITHELIAL CELL AUTO 0-5 /lpf (0-5)
--- NOTE | 2016-12-21 11:48 | DIAGNOSTIC IMAGING REPORT ---
CERVICAL SPINE CT CT DOSE: HISTORY: Right upper extremity weakness. TECHNIQUE: Multiaxial CT images of the cervical spine were performed and reformatted in the sagittal and coronal plane without the use of contrast. COMPARISON: Cervical spine CT 07/01/2016. FINDINGS: No fractures. No subluxation. Prevertebral soft tissues and the C1-C2 interval are intact. No pneumothorax. Mild reversal of the normal lordotic curvature. Mild facet degenerative changes within the lower cervical spine. Mild disc space narrowing at C5-C6 and C6-C7 with small endplate osteophytes. This remains unchanged. There is mild to moderate central canal narrowing at C5-C6 and C6-C7 which is also unchanged. IMPRESSION: No fractures within the cervical spine. Degenerative changes as described above. Electronically signed by: Vidal Keller M.D. 12/21/2016 11:47 AM Dictated Date/Time: 12/21/2016 11:41 AM
--- NOTE | 2016-12-21 11:53 | DIAGNOSTIC IMAGING REPORT ---
CHEST ONE VIEW PORTABLE HISTORY: Right hand weakness. Stroke COMPARISON: Chest 11/04/2016. FINDINGS: Right upper lobe airspace opacity appears to have resolved. The left lung remains clear. The heart is stable in size. Stable blunting of the right lateral costophrenic sulcus suggests a trace pleural effusion. No pneumothorax. IMPRESSION: Right upper lobe airspace opacity appears to have resolved. Trace right pleural effusion persists. Electronically signed by: Vidal Keller M.D. 12/21/2016 11:51 AM Dictated Date/Time: 12/21/2016 11:49 AM
[2016-12-21 11:55] LABS: BASO % 0.6 %; BASO ABS # 0.05 K/uL (0-0.2); COMPLETE YES; EOS % 6.1 %; HEMATOCRIT 35.6 % (42-52); IG% 0.4 %; LYMPH % 26.1 %; LYMPH ABS # 2.34 K/uL (1.2-3.4); MEAN CELL VOLUME 81.7 fL (80-100); MEAN CORPUSCULAR HEMOGLOBIN 27.8 pg (25-34); MEAN PLATELET VOLUME 9.8 fL (7.4-10.4); MONO % 8.5 %; NEUT % 58.3 %; PLATELET COUNT 236 K/uL (130-400); RED BLOOD COUNT 4.36 M/uL (4.7-6.1); WHITE BLOOD COUNT 8.96 K/uL (4.8-10.8)
[2016-12-21 12:04] LABS: BENZODIAZEPINE, URINE NEG (NEG); COCAINE,URINE NEG (NEG); PHENCYCLIDINE, URINE NEG (NEG)
[2016-12-21 12:09] LABS: PARTIAL THROMBOPLASTIN RATIO 1.1; PROTHROMBIN TIME (PATIENT) 10.8 SECONDS (9.0-12.0)
[2016-12-21 12:14] LABS: BLOOD UREA NITROGEN 14 mg/dl (7-18); BUN/CREATININE RATIO 9.7 (10-20); CALCIUM 8.5 mg/dl (8.5-10.1); CARBON DIOXIDE 26 mmol/L (21-32); CHLORIDE 107 mmol/L (98-107); GLUCOSE 130 mg/dl (70-99); MAGNESIUM 2.1 mg/dl (1.8-2.4); POTASSIUM 3.8 mmol/L (3.5-5.1); SODIUM 139 mmol/L (136-145)
[2016-12-21 12:19] LABS: CKMB/CK RATIO 0.9 (0-3.0)
[2016-12-21 13:02] VITALS: BP 122/77; PULSE 88; O2SAT 99
[2016-12-21] MEDS ORDERED: SYMIN/8045 INH (17:56)
[2016-12-21] MEDS ORDERED: NRN/600 PO (18:15)
[2016-12-21] MEDS ORDERED: CYCL10TA7 PO (18:18)
[2016-12-21] MEDS ORDERED: ONDA4TAB9 PO (21:15)
[2016-12-25 14:40] LABS: COD UR NEGATIVE NG/ML (CUTOFF=50); HYDROCOD UR NEGATIVE NG/ML (CUTOFF=50); HYDROMOR UR NEGATIVE NG/ML (CUTOFF=50); MORPHINE UR NEGATIVE NG/ML (CUTOFF=50); NORHYDROCODONE CONF UR NEGATIVE NG/ML (CUTOFF=50); OXYMORPH UR 11400 NG/ML (CUTOFF=50)
[2017-07-19] MEDS ORDERED: TAMS0.4C38 PO (10:33)
[2017-07-19] MEDS ORDERED: NAPR500T3 PO (11:14)
[2017-07-19] MEDS ORDERED: OXY/15 PO (13:33)
== END 2016-12-21 13:03 | disposition home or self-care (01) ==
LOC: C.EDB 10:35 → C.EDC 13:03
DX: M62.81 Muscle weakness (generalized) (principal); M21.331 Wrist drop, right wrist; M43.6 Torticollis; R51 Headache; F41.9 Anxiety disorder, unspecified; F32.9 Major depressive disorder, single episode, unspecified; N40.0 Benign prostatic hyperplasia without lower urinary tract symptoms; J44.9 Chronic obstructive pulmonary disease, unspecified; E11.9 Type 2 diabetes mellitus without complications; G89.4 Chronic pain syndrome; E66.9 Obesity, unspecified; Z86.711 Personal history of pulmonary embolism; Z83.3 Family history of diabetes mellitus; Z84.1 Family history of disorders of kidney and ureter; Z79.899 Other long term (current) drug therapy

== ENCOUNTER 2017-01-24 12:37 | Emergency (ER) | payer OTHER ==
[~2017-01-24] VITALS: Ht 182.9 cm; Wt 146.5 kg
[~2017-01-24 12:37] MED LIST changes: +CYCL10TA7 PO; -LVQ750 PO; +NRN/600 PO; +ONDA4TAB9 PO; -OXY/15 PO; +OXYC15TA89 PO; -PRD20 PO; +SYMIN/8045 INH
[2017-01-24] MEDS ORDERED: SODIUM CHLORIDE 0.9% 1000ML 1,000 ML IV SCH (12:42)
[2017-01-24] MEDS ORDERED: PATIENT'S HEIGHT AND/OR WEIGHT NEEDED SCH (12:45)
[2017-01-24 12:47] VITALS: TEMP 36.8; O2SAT 97; Ht 182.9 cm; Wt 146.5 kg
[2017-01-24] MEDS ORDERED: MAGNESIUM SULFATE 1GM / D5W 1 GM BAG IV STA (12:47)
[2017-01-24] MEDS ORDERED: SODIUM CHLORIDE 0.9% 1000ML 1,000 ML IV STA (12:47)
[2017-01-24] MEDS ORDERED: PROCHLORPERAZINE 5 MG/ML 2 ML VIAL IM STA (12:47)
[2017-01-24] MEDS ORDERED: KETOROLAC TROMETHAMINE 30 MG/ML VIAL IV STA (12:47)
[2017-01-24] MEDS ORDERED: ALBUT/IPRATROP 3MG/0.5MG NEB 3 ML VIAL INH STA (12:47)
[2017-01-24] MEDS ORDERED: DiphenhydrAMINE HCL 50 MG/ML VIAL IV STA (12:47)
--- NOTE | 2017-01-24 12:54 | EMERGENCY ROOM VISIT NOTE ---
History Report prepared by Alek: Jayesh Li Under the Supervision of: Dr. Luis Antonio Royal M.D. 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 The patient was getting up to get a drink of water when he began to feel "not right." He started to get a headache and his right side became numb. He feels like he is having difficulty speaking. He denies any abdominal pain. 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 A total of 10 systems reviewed and were otherwise negative. Past Medical & Surgical Medical Problems: (1) Anxiety (2) Anxiety and depression (3) BPH (benign prostatic hypertrophy) (4) Chronic pain syndrome (5) Community acquired bacterial pneumonia (6) COPD, moderate (7) Diabetes (8) Drug ingestion (9) Ingestion of substance (10) Narcotic dependence (11) Obesity (12) Personality disorder (13) Positive blood culture (14) Pulmonary embolism (15) Suicidal ideation (16) Urinary retention Surgical Problems: (1) History of back surgery Family History Cancer Diabetes mellitus Heart disease Kidney disease Kidney stones Lung disease Social History Smoking Status: Unknown if Ever Smoked Alcohol Use: none Drug Use: none Marital Status: in relationship Housing Status: lives with family, senior living Occupation Status: disabled Current/Historical Medications Scheduled Duloxetine Hcl (Cymbalta), 120 MG PO DAILY Finasteride (Proscar), 5 MG PO DAILY Gabapentin (Neurontin), 600 MG PO TID Hydroxyzine Pamoate (Vistaril), 50 MG PO BID Levothyroxine Sodium (Synthroid), 25 MCG PO DAILYBB Morphine Sulfate (Morphine Sulfate Er), 15 MG PO Q12 Naproxen (Naproxen), 500 MG PO BID Omeprazole (Prilosec), 20 MG PO DAILY Oxycodone Hcl (Oxycodone Hcl), 1 TAB PO 5XD Quetiapine Fumarate (Quetiapine Fumarate), 25 MG PO BID Tamsulosin Hcl (Flomax), 0.4 MG PO DAILY Topiramate (Topamax), 200 MG PO HS Trazodone Hcl (Desyrel), 100 MG PO HS Scheduled PRN Albuterol Hfa (Ventolin Hfa), 2 PUFFS INH QID PRN for SOB/Wheezing Budesonide/Formoterol Fumarate (Symbicort 80/4.5 Inhaler), 1 PUFF INH BID PRN for COPD Cyclobenzaprine HCl (Cyclobenzaprine HCl), 10 MG PO HS PRN for Muscle Spasm Docusate Sodium (Colace), 100 MG PO BID PRN for Constipation Lorazepam (Lorazepam), 1 MG PO BID PRN for Anxiety Ondansetron (Ondansetron HCl), 4 MG PO QID PRN for Nausea or Vomiting Polyethylene (Polyethylene Glycol 3350), 1 DOSE PO DAILY PRN for Constipation Sumatriptan Succinate (Sumatriptan Succinate), 6 MG INJ UD PRN for Migraine Allergies Coded Allergies: Fentanyl (Verified Allergy, Intermediate, RASH/HIVES/SKIN REDNESS, 01/24/17) FROM PATCH ONLY Valproic Acid (Verified Adverse Reaction, Intermediate, PANCREATITIS, ) Valproic Acid and Related (Verified Adverse Reaction, Intermediate, PANCREATITS, 01/24/17) Physical Exam Vital Signs Date Time Temp Pulse Resp B/P Pulse Ox O2 Delivery O2 Flow Rate FiO2 01/24/17 13:40 78 16 156/81 97 01/24/17 12:48 82 01/24/17 12:47 97 Room Air 01/24/17 12:47 36.8 84 16 160/77 97 Room Air Physical Exam GENERAL: Patient is a healthy-appearing well-nourished HEAD: Normocephalic atraumatic EYES: Ocular movements intact pupils equal and react to light OROPHARYNX mucous membranes are moist no exudates present no erythema or edema present NECK: Supple no nuchal rigidity CHEST: Good equal expansion LUNGS: Clear and equal to auscultation CARDIAC: Normal S1 and S2 ABDOMEN: Soft nontender no guarding BACK: No CVA tenderness EXTREMITIES: No pain upon palpation normal muscle strength in all groups no clubbing cyanosis or edema NEURO: Patient is following commands is answering questions appropriately. Alert and oriented x3 Cranial Nerves 2-12 grossly intact Medical Decision & Procedures ER Provider Diagnostic Interpretation: Radiology results as stated below per my review and radiologist interpretation: CHEST ONE VIEW PORTABLE CLINICAL HISTORY: Stroke COMPARISON STUDY: 12/21/2016 FINDINGS: The cardiac and mediastinal contours are normal. There is no evidence of focal pulmonary consolidation. There is no evidence of failure. No pleural effusions are visualized. IMPRESSION: No active disease in the chest. Electronically signed by: Luis Castro M.D. 01/24/2017 1:21 PM Dictated Date/Time: 01/24/2017 1:[address] ANGIOGRAPHY HEAD COMBO CT DOSE: 1020.60 mGy.cm CLINICAL HISTORY: Stroke. TECHNIQUE: Unenhanced images were obtained through the brain. CT angiography was then performed during intravenous administration 119 cc Optiray 320. MIP imaging was obtained. COMPARISON STUDY: 12/21/2016 FINDINGS: Unenhanced images reveal no CT evidence of acute cortical infarction. There is no midline shift. There is no acute hemorrhage. There is no hydrocephalus. Postcontrast images reveal no lesion suspicious for aneurysm. There is no evidence of intracranial branch occlusion or major intracranial stenosis. There is no evidence of dural venous sinus thrombosis. There are no pathologically enhancing masses. IMPRESSION: 1. No acute intracranial findings 2. No evidence of aneurysm. No evidence of major intracranial branch occlusion. Electronically signed by: Luis Castro M.D. 01/24/2017 1:10 PM Dictated Date/Time: 01/24/2017 1:06 PM Laboratory Results 01/24/17 12:38 Red Blood Count 5.13, Mean Corpuscular Volume 84.0, Mean Corpuscular Hemoglobin 27.9, Mean Corpuscular Hemoglobin Concent 33.2, Mean Platelet Volume 10.9, Neutrophils (%) (Auto) 69.8, Lymphocytes (%) (Auto) 21.1, Monocytes (%) (Auto) 6.6, Eosinophils (%) (Auto) 2.0, Basophils (%) (Auto) 0.4, Neutrophils # (Auto) 5.28, Lymphocytes # (Auto) 1.60, Monocytes # (Auto) 0.50, Eosinophils # (Auto) 0.15, Basophils # (Auto) 0.03 01/24/17 12:38 Test 01/24/17 12:38 01/24/17 12:49 01/24/17 12:50 White Blood Count 7.57 K/uL (4.8-10.8) Red Blood Count 5.13 M/uL (4.7-6.1) Hemoglobin 14.3 g/dL (14.0-18.0) Hematocrit 43.1 % (42-52) Mean Corpuscular Volume 84.0 fL (80-100) Mean Corpuscular Hemoglobin 27.9 pg (25-34) Mean Corpuscular Hemoglobin Concent 33.2 g/dl (32-36) Platelet Count 240 K/uL (130-400) Mean Platelet Volume 10.9 fL (7.4-10.4) Neutrophils (%) (Auto) 69.8 % Lymphocytes (%) (Auto) 21.1 % Monocytes (%) (Auto) 6.6 % Eosinophils (%) (Auto) 2.0 % Basophils (%) (Auto) 0.4 % Neutrophils # (Auto) 5.28 K/uL (1.4-6.5) Lymphocytes # (Auto) 1.60 K/uL (1.2-3.4) Monocytes # (Auto) 0.50 K/uL (0.11-0.59) Eosinophils # (Auto) 0.15 K/uL (0-0.5) Basophils # (Auto) 0.03 K/uL (0-0.2) RDW Standard Deviation 50.3 fL (36.4-46.3) RDW Coefficient of Variation 16.4 % (11.5-14.5) Immature Granulocyte % (Auto) 0.1 % Immature Granulocyte # (Auto) 0.01 K/uL (0.00-0.02) Prothrombin Time 10.7 SECONDS (9.0-12.0) Prothromb Time International Ratio 1.0 (0.9-1.1) Activated Partial Thromboplast Time 26.9 SECONDS (21.0-31.0) Partial Thromboplastin Ratio 1.0 Anion Gap 10.0 mmol/L (3-11) Est Creatinine Clear Calc Drug Dose 144.5 ml/min Estimated GFR () 110.8 Estimated GFR (Non- 95.6 BUN/Creatinine Ratio 11.0 (10-20) Calcium Level 8.3 mg/dl (8.5-10.1) Total Creatine Kinase 70 U/L (39-308) Creatine Kinase MB 1.0 ng/ml (0.5-3.6) Creatine Kinase MB Ratio 1.4 (0-3.0) Troponin I < 0.015 ng/ml (0-0.045) Bedside Glucose 145 mg/dl (70-99) Bedside Prothrombin Time INR 1.1 (0.9-1.1) Labs reviewed by ED physician. Medications Administered Medications (Trade) Dose Ordered Sig/Amalia Route Start Time Stop Time Status Last Admin Dose Admin Sodium Chloride (Nss 1000ml) 1,000 ml @ 999 mls/hr Q1H1M STAT IV 01/24/17 12:47 01/24/17 13:47 DC 01/24/17 13:09 999 MLS/HR Ketorolac Tromethamine (Toradol Inj) 30 mg NOW STAT IV 01/24/17 12:47 01/24/17 12:51 DC 01/24/17 13:07 30 MG Magnesium Sulfate (Magnesium Sulfate) 1 gm NOW STAT IV 01/24/17 12:47 01/24/17 12:51 DC 01/24/17 13:08 1 GM Prochlorperazine Edisylate (Compazine Inj) 10 mg NOW STAT IM 01/24/17 12:47 01/24/17 13:00 DC 01/24/17 13:07 10 MG Diphenhydramine HCl (Benadryl Inj) 50 mg NOW STAT IV 01/24/17 12:47 01/24/17 12:51 DC 01/24/17 13:06 50 MG Dexamethasone Sodium Phosphate (Decadron Inj) 10 mg NOW ONCE IV 01/24/17 13:00 01/24/17 13:01 DC 01/24/17 13:07 10 MG ECG Indication: weakness Rate (beats per minute): 76 Rhythm: normal sinus Findings: no acute ischemic change, no ectopy ED Course 1241: Past medical records reviewed. The patient was evaluated in room B1. A complete history and physical examination was performed. 1242: Sodium Chloride 1000 ml @ 50 mls/hr IV 1247: Ordered Duoneb 12 ml INH, Benadryl Inj 50 mg IV, Compazine Inj 10 mg IM, Magnesium Sulfate 1 gm IV, Toradol Inj 30 mg IV, Sodium Chloride 1000 ml @ 999 mls/hr IV 1249: Ordered Compazine Inj 10 mg IV 1300: Ordered Decadron Inj 10 mg IV 1350: Upon reexamination the patient is resting. I discussed results and treatment plan with the patient. He verbalizes agreement and understanding. The patient is ready for discharge. Also at this time, the patient's significant other has just checked into the ER. Medical Decision Differential diagnosis: Etiologies such as metabolic, infection, hypo/hyperglycemia, electrolyte abnormalities, cardiac sources, intracerebral event, toxicologic, neurologic, as well as others were entertained. This is a 46-year-old male who presents emergency department complaining of right-sided numbness as well as a headache. The patient is concerned he has a stroke however when distracted the patient actually has a normal physical exam. An IV was established, the patient was given normal saline bolus, Toradol, Compazine, Benadryl, magnesium, Decadron. The patient was sent for CTA of the head as well as CT of the head. Both these did not show any acute intracranial process. The patient has no evidence of meningitis or encephalitis on examination. His laboratory work does not show any evidence of an elevation in his white blood count cell count has a normal hemoglobin normal renal profile normal liver profile. I discussed my findings with the patient who is requesting to be admitted. 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 At this point it was noted that the patient was able to move his right arm as well as his right leg without any difficulty. The patient became animated and demanded to be admitted which I will not do as he does not meet any admission criteria. He was told he could either leave or be turned over to the police. He is going to follow-up with neurology. Impression Primary Impression: Migraine Scribe Attestation The scribe's documentation has been prepared under my direction and personally reviewed by me in its entirety. I confirm that the note above accurately reflects all work, treatment, procedures, and medical decision making performed by me. Departure Information Dispostion Home / Self-Care Referrals Tesha Loredo M.D. (MEDICAL) (PCP) Forms HOME CARE DOCUMENTATION FORM, IMPORTANT VISIT INFORMATION, School Instructions, Work Instructions Patient Instructions ED Headache Migraine, My [facility] Additional Instructions Follow up with DR Loredo's office You have been examined and treated today on an emergency basis only. This is not a substitute for, or an effort to provide, complete comprehensive medical care. It is impossible to recognize and treat all injuries or illnesses in a single emergency department visit. It is therefore important that you follow up closely with Dr Loredo. Call as soon as possible for an appointment. Thank you for your time and consideration. I look forward to speaking with you again soon. Please don't hesitate to call us if you have any questions. Problem Qualifiers Primary Impression: Migraine Migraine type: unspecified Status migrainosus presence: without status migrainosus Intractability: not intractable Qualified Codes: G43.909 - Migraine, unspecified, not intractable, without status migrainosus
[2017-01-24] MEDS ORDERED: PROCHLORPERAZINE 5 MG/ML 2 ML VIAL IV STA (12:59)
[2017-01-24] MEDS ORDERED: DEXAMETHASONE SOD INJ 10 MG/ML VIAL IV ONE (13:00)
[2017-01-24] MEDS ORDERED: OPTIRAY 320 IV PRN (13:00)
[2017-01-24 13:06] LABS: BASO % 0.4 %; BASO ABS # 0.03 K/uL (0-0.2); COMPLETE YES; HEMATOCRIT 43.1 % (42-52); IG% 0.1 %; LYMPH % 21.1 %; MEAN CORPUSCULAR HEMOGLOBIN 27.9 pg (25-34); MEAN CORPUSCULAR HGB CONC 33.2 g/dl (32-36); MEAN PLATELET VOLUME 10.9 fL (7.4-10.4); MONO % 6.6 %; NEUT % 69.8 %; PLATELET COUNT 240 K/uL (130-400); PROTHROMBIN TIME (PATIENT) 10.7 SECONDS (9.0-12.0); RED BLOOD COUNT 5.13 M/uL (4.7-6.1); WHITE BLOOD COUNT 7.57 K/uL (4.8-10.8)
--- NOTE | 2017-01-24 13:12 | DIAGNOSTIC IMAGING REPORT ---
CT ANGIOGRAPHY HEAD COMBO CT DOSE: 1020.60 mGy.cm CLINICAL HISTORY: Stroke. TECHNIQUE: Unenhanced images were obtained through the brain. CT angiography was then performed during intravenous administration 119 cc Optiray 320. MIP imaging was obtained. COMPARISON STUDY: 12/21/2016 FINDINGS: Unenhanced images reveal no CT evidence of acute cortical infarction. There is no midline shift. There is no acute hemorrhage. There is no hydrocephalus. Postcontrast images reveal no lesion suspicious for aneurysm. There is no evidence of intracranial branch occlusion or major intracranial stenosis. There is no evidence of dural venous sinus thrombosis. There are no pathologically enhancing masses. IMPRESSION: 1. No acute intracranial findings 2. No evidence of aneurysm. No evidence of major intracranial branch occlusion. Electronically signed by: Luis Castro M.D. 01/24/2017 1:10 PM Dictated Date/Time: 01/24/2017 1:06 PM
[2017-01-24 13:14] LABS: BLOOD UREA NITROGEN 10 mg/dl (7-18); CALCIUM 8.3 mg/dl (8.5-10.1); CARBON DIOXIDE 25 mmol/L (21-32); CHLORIDE 109 mmol/L (98-107); CREATININE 0.95 mg/dl (0.60-1.40); GLUCOSE 147 mg/dl (70-99); SODIUM 144 mmol/L (136-145)
[2017-01-24 13:19] LABS: CKMB/CK RATIO 1.4 (0-3.0)
--- NOTE | 2017-01-24 13:22 | DIAGNOSTIC IMAGING REPORT ---
CHEST ONE VIEW PORTABLE CLINICAL HISTORY: Stroke COMPARISON STUDY: 12/21/2016 FINDINGS: The cardiac and mediastinal contours are normal. There is no evidence of focal pulmonary consolidation. There is no evidence of failure. No pleural effusions are visualized.[ IMPRESSION: No active disease in the chest. Electronically signed by: Luis Castro M.D. 01/24/2017 1:21 PM Dictated Date/Time: 01/24/2017 1:20 PM
[2017-01-24 13:40] VITALS: BP 156/81; PULSE 78; O2SAT 97
[2017-07-19] MEDS ORDERED: TAMS0.4C38 PO (10:33)
[2017-07-19] MEDS ORDERED: NAPR500T3 PO (11:14)
[2017-07-19] MEDS ORDERED: OXY/15 PO (13:33)
== END 2017-01-24 14:16 | disposition home or self-care (01) ==
LOC: EDBD 12:37 → C.EDB 12:38
DX: G43.909 Migraine, unspecified, not intractable, without status migrainosus (principal); F41.9 Anxiety disorder, unspecified; F32.9 Major depressive disorder, single episode, unspecified; N40.0 Benign prostatic hyperplasia without lower urinary tract symptoms; G89.4 Chronic pain syndrome; J44.9 Chronic obstructive pulmonary disease, unspecified; E11.9 Type 2 diabetes mellitus without complications; F11.20 Opioid dependence, uncomplicated; E66.9 Obesity, unspecified; F60.9 Personality disorder, unspecified; Z86.711 Personal history of pulmonary embolism; Z83.3 Family history of diabetes mellitus; Z84.1 Family history of disorders of kidney and ureter

== ENCOUNTER 2017-02-15 15:59 | Emergency (ER) | payer OTHER ==
[~2017-02-15] VITALS: Ht 182.9 cm; Wt 151.3 kg
[~2017-02-15 15:59] MED LIST changes: -OXYC15TA89 PO
[2017-02-15 16:02] VITALS: Ht 182.9 cm; Wt 151.3 kg
[2017-02-15] MEDS ORDERED: ALBUT/IPRATROP 3MG/0.5MG NEB 3 ML VIAL INH STA (16:30)
[2017-02-15 16:40] LABS: URINE APPEARANCE CLEAR (CLEAR); URINE BILIRUBIN NEG (NEG); URINE COLOR YELLOW; URINE NITRITE NEG (NEG); URINE PH 6.5 (4.5-7.5); URINE SPECIFIC GRAVITY 1.024 (1.000-1.030); UROBILINOGEN NEG (NEG)
--- NOTE | 2017-02-15 16:42 | EMERGENCY ROOM VISIT NOTE ---
History Report prepared by Alek: Marcella Julian Under the Supervision of: Dr. Stanton Dyer D.O. First contact with patient: 16:06 Chief Complaint: MENTAL HEALTH EVALUATION Stated Complaint: NEED CLEARANCE TO GO TO [place], R/O SUICIDAL History of Present Illness The patient is a 46 year old male who presents to the Emergency Room for a mental health evaluation after worsening depression over the last few months. The patient states that he has been hallucinating since September and is seeing a man that he knows it not there. He reports that the hallucinations are making him feel crazy. The patient complains of panic attacks, suicidal ideation without a plan, visual and auditory hallucinations, and difficulty breathing. He denies any fever, new medications or changes in medications, drug use, and alcohol use. The patient notes that he spoke to [facility] today and has been accepted at [facility] pending medical clearance. He reports that he used an inhaler yesterday for his shortness of breath. Source of History: patient Onset: a few months ago Position: other (mental health) Quality: other (depression) Timing: worsening Associated Symptoms: + SOB, No fevers Note: The patient complains of panic attacks, suicidal ideation without a plan, visual and auditory hallucinations. He denies any new medications or changes in medications, drug use, and alcohol use. Review of Systems See HPI for pertinent positives & negatives. A total of 10 systems reviewed and were otherwise negative. Past Medical & Surgical Medical Problems: (1) Anxiety (2) Anxiety and depression (3) BPH (benign prostatic hypertrophy) (4) Chronic pain syndrome (5) Community acquired bacterial pneumonia (6) COPD, moderate (7) Diabetes (8) Drug ingestion (9) Ingestion of substance (10) Narcotic dependence (11) Obesity (12) Personality disorder (13) Positive blood culture (14) Pulmonary embolism (15) Suicidal ideation (16) Urinary retention Surgical Problems: (1) History of back surgery Family History Cancer Diabetes mellitus Heart disease Kidney disease Kidney stones Lung disease Social History Smoking Status: Current Every Day Smoker Alcohol Use: none Drug Use: none Marital Status: in relationship Housing Status: lives with family, residential Occupation Status: disabled Current/Historical Medications Scheduled Duloxetine Hcl (Cymbalta), 120 MG PO DAILY Finasteride (Proscar), 5 MG PO DAILY Gabapentin (Neurontin), 600 MG PO TID Hydroxyzine Pamoate (Vistaril), 50 MG PO BID Levothyroxine Sodium (Synthroid), 25 MCG PO DAILYBB Morphine Sulfate (Morphine Sulfate Er), 15 MG PO Q12 Naproxen (Naproxen), 500 MG PO BID Omeprazole (Prilosec), 20 MG PO DAILY Oxycodone Hcl (Oxycodone Hcl), 1 TAB PO 5XD Quetiapine Fumarate (Quetiapine Fumarate), 25 MG PO BID Tamsulosin Hcl (Flomax), 0.4 MG PO DAILY Topiramate (Topamax), 200 MG PO HS Trazodone Hcl (Desyrel), 100 MG PO HS Scheduled PRN Albuterol Hfa (Ventolin Hfa), 2 PUFFS INH QID PRN for SOB/Wheezing Budesonide/Formoterol Fumarate (Symbicort 80/4.5 Inhaler), 1 PUFF INH BID PRN for COPD Cyclobenzaprine HCl (Cyclobenzaprine HCl), 10 MG PO HS PRN for Muscle Spasm Docusate Sodium (Colace), 100 MG PO BID PRN for Constipation Lorazepam (Lorazepam), 1 MG PO BID PRN for Anxiety Ondansetron (Ondansetron HCl), 4 MG PO QID PRN for Nausea or Vomiting Polyethylene (Polyethylene Glycol 3350), 1 DOSE PO DAILY PRN for Constipation Sumatriptan Succinate (Sumatriptan Succinate), 6 MG INJ UD PRN for Migraine Allergies Coded Allergies: Fentanyl (Verified Allergy, Intermediate, RASH/HIVES/SKIN REDNESS, 02/15/17 ) FROM PATCH ONLY Valproic Acid (Verified Adverse Reaction, Intermediate, PANCREATITIS, 02/15) Valproic Acid and Related (Verified Adverse Reaction, Intermediate, PANCREATITS, 02/15/17) Physical Exam Vital Signs Date Time Temp Pulse Resp B/P Pulse Ox O2 Delivery O2 Flow Rate FiO2 02/15/17 20:25 84 20 154/94 98 02/15/17 18:29 79 18 161/93 95 Room Air 02/15/17 16:02 36.9 84 18 153/93 98 Room Air Physical Exam GENERAL: Patient is awake, alert, somewhat listless appearing, does not appear to be uncomfortable. EYES: The conjunctivae are clear. The pupils are round and reactive. EARS, NOSE, MOUTH AND THROAT: The nose is without any evidence of any deformity. Mucous membranes are moist tongue is midline NECK: The neck is nontender and supple. RESPIRATORY: Lung sounds diminished throughout, expiratory wheezing, no tachypnea or conversational dyspnea. CARDIOVASCULAR: Regular rate and rhythm noted there no murmurs rubs or gallops normal S1 normal S2 GASTROINTESTINAL: The abdomen is soft. Bowel sounds are present in all quadrants. Abdomen is nontender PELVIS: The Pelvis is stable. No tenderness to palpation is noted. BACK: No midline tenderness or or step-off noted range of motion in flexion extension as well as rotation no signs of muscle spasm noted MUSCULOSKELETAL/EXTREMITIES: There is no evidence of gross deformity full range of motion is noted in the hips and shoulders SKIN: There is no obvious evidence of any rash. There are no petechiae, pallor or cyanosis noted. Pedal edema bilaterally. NEUROLOGIC: Patient is awake alert and oriented x3 strength is symmetric patellar reflexes are 2+ bilaterally PSYCH: Affect was flat. Patient makes good eye contact, currently admitting to suicidal ideation and visual hallucination. No specific plan was voiced. Medical Decision & Procedures ER Provider Diagnostic Interpretation: X-ray results as stated below per interpretation by me and the radiologist. CHEST ONE VIEW PORTABLE FINDINGS: There is no pneumothorax or pleural effusion. There is no consolidation to suggest pneumonia. Cardiac size is normal. Mediastinal contours are normal. There is no evidence of pulmonary edema. Minimal right basilar opacity suggest atelectasis. IMPRESSION: No acute cardiopulmonary findings. Electronically signed by: Evelio Corbin M.D. 02/15/2017 4:54 PM Dictated Date/Time: 02/15/2017 4:52 PM Laboratory Results 02/15/17 16:45 Red Blood Count 4.66, Mean Corpuscular Volume 84.8, Mean Corpuscular Hemoglobin 26.8, Mean Corpuscular Hemoglobin Concent 31.6, Mean Platelet Volume 11.0, Neutrophils (%) (Auto) 53.4, Lymphocytes (%) (Auto) 32.4, Monocytes (%) (Auto) 7.8, Eosinophils (%) (Auto) 5.5, Basophils (%) (Auto) 0.7, Neutrophils # (Auto) 4.92, Lymphocytes # (Auto) 2.99, Monocytes # (Auto) 0.72, Eosinophils # (Auto) 0.51, Basophils # (Auto) 0.06 02/15/17 16:45 Test 02/15/17 16:25 02/15/17 16:45 Urine Color YELLOW Urine Appearance CLEAR (CLEAR) Urine pH 6.5 (4.5-7.5) Urine Specific [place] 1.024 (1.000-1.030) Urine Protein NEG (NEG) Urine Glucose (UA) NEG (NEG) Urine Ketones NEG (NEG) Urine Occult Blood NEG (NEG) Urine Nitrite NEG (NEG) Urine Bilirubin NEG (NEG) Urine Urobilinogen NEG (NEG) Urine Leukocyte Esterase NEG (NEG) Urine Opiates Screen POS (NEG) Urine Methadone, Qualitative NEG (NEG) Urine Barbiturates NEG (NEG) Urine Phencyclidine (PCP) Level NEG (NEG) Ur Amphetamine/Methamphetamine NEG (NEG) MDMA (Ecstasy) Screen NEG (NEG) Urine Benzodiazepines Screen NEG (NEG) Urine Cocaine Metabolite NEG (NEG) Urine Marijuana (THC) NEG (NEG) White Blood Count 9.22 K/uL (4.8-10.8) Red Blood Count 4.66 M/uL (4.7-6.1) Hemoglobin 12.5 g/dL (14.0-18.0) Hematocrit 39.5 % (42-52) Mean Corpuscular Volume 84.8 fL (80-100) Mean Corpuscular Hemoglobin 26.8 pg (25-34) Mean Corpuscular Hemoglobin Concent 31.6 g/dl (32-36) Platelet Count 212 K/uL (130-400) Mean Platelet Volume 11.0 fL (7.4-10.4) Neutrophils (%) (Auto) 53.4 % Lymphocytes (%) (Auto) 32.4 % Monocytes (%) (Auto) 7.8 % Eosinophils (%) (Auto) 5.5 % Basophils (%) (Auto) 0.7 % Neutrophils # (Auto) 4.92 K/uL (1.4-6.5) Lymphocytes # (Auto) 2.99 K/uL (1.2-3.4) Monocytes # (Auto) 0.72 K/uL (0.11-0.59) Eosinophils # (Auto) 0.51 K/uL (0-0.5) Basophils # (Auto) 0.06 K/uL (0-0.2) RDW Standard Deviation 47.8 fL (36.4-46.3) RDW Coefficient of Variation 15.5 % (11.5-14.5) Immature Granulocyte % (Auto) 0.2 % Immature Granulocyte # (Auto) 0.02 K/uL (0.00-0.02) Anion Gap 8.0 mmol/L (3-11) Est Creatinine Clear Calc Drug Dose 116.5 ml/min Estimated GFR () 83.5 Estimated GFR (Non- 72.1 BUN/Creatinine Ratio 11.7 (10-20) Calcium Level 7.7 mg/dl (8.5-10.1) Total Bilirubin 0.5 mg/dl (0.2-1) Direct Bilirubin < 0.1 mg/dl (0-0.2) Aspartate Amino Transf (AST/SGOT) 16 U/L (15-37) Alanine Aminotransferase (ALT/SGPT) 22 U/L (12-78) Alkaline Phosphatase 92 U/L (45-117) Total Protein 6.2 gm/dl (6.4-8.2) Albumin 3.6 gm/dl (3.4-5.0) Thyroid Stimulating Hormone (TSH) 1.360 uIu/ml (0.300-4.500) Ethyl Alcohol mg/dL < 3.0 mg/dl (0-3) Laboratory results per my review. Medications Administered Medications (Trade) Dose Ordered Sig/Amalia Route Start Time Stop Time Status Last Admin Dose Admin Albuterol/ Ipratropium (Duoneb) 3 ml NOW STAT INH 02/15/17 16:30 02/15/17 16:32 DC 02/15/17 16:51 3 ML ED Course 1606: The patient was evaluated in room A8. A complete history and physical examination were performed. 1630: Duoneb 3ml INH. Medical Decision Differential diagnosis: Etiologies such as mood disorder, infection, hypoglycemia, electrolyte abnormalities, cardiac sources, intracerebral event, toxicologic, neurologic, as well as others were entertained. Nursing notes reviewed. Patient's previous electronic medical records reviewed. The patient is a 46-year-old male who has a long mental health history who presented to the emergency department for an evaluation of depression and suicidal ideation and hallucinations. The patient was medically cleared in the emergency department. He was evaluated by the [facility] help delegate in the field and was sent to the emergency department for medical clearance. He was accepted at [facility] for inpatient psychiatric treatment. The patient was treated with a DuoNeb because of cough. Chest x-ray did not reveal any acute abnormality. The patient does have a history of bronchospasm in the past and feels that this is similar to his previous episodes. We received a phone call back from [facility] stating that they would not be able to write an inpatient treatment. He was reevaluated by the mental health delegate as well as the [facility] delegate in the emergency department. He was able to be contracted for safety. Other facilities were contacted in case the patient desired other inpatient treatment at a different facility. He was encouraged to follow-up with his primary therapist as soon as possible but call crisis or return to the emergency apartment immediately if symptoms change worsen or the need arises. Before the patient could be discharged he started voicing more significant suicidal ideation with a plan to cut his neck in bleed to . He was evaluated by the mental delegate as well as he [facility] delegate and he could still not contract for safety. For this reason a 302 petition was filled out. Bed search is underway at this time. The patient was signed out to Dr. Boyle at change of shift. Please see his note for continuation of care. Impression Primary Impression: Depression Additional Impressions: Suicidal ideation Hallucinations Scribe Attestation The scribe's documentation has been prepared under my direction and personally reviewed by me in its entirety. I confirm that the note above accurately reflects all work, treatment, procedures, and medical decision making performed by me. Departure Information Dispostion Still a Patient Referrals Tesha Loredo M.D. (MEDICAL) (PCP) Patient Instructions My [facility] Problem Qualifiers Primary Impression: Depression Depression Type: unspecified Qualified Codes: F32.9 - Major depressive disorder, single episode, unspecified
[2017-02-15 16:46] LABS: MANUAL MICROSCOPIC REQUIRED? NO; REVIEW REQ? NO
--- NOTE | 2017-02-15 16:55 | DIAGNOSTIC IMAGING REPORT ---
CHEST ONE VIEW PORTABLE CLINICAL HISTORY: Cough. COMPARISON STUDY: Chest radiograph January 24, 2017. FINDINGS: There is no pneumothorax or pleural effusion. There is no consolidation to suggest pneumonia. Cardiac size is normal. Mediastinal contours are normal. There is no evidence of pulmonary edema. Minimal right basilar opacity suggest atelectasis. IMPRESSION: No acute cardiopulmonary findings. Electronically signed by: Evelio Corbin M.D. 02/15/2017 4:54 PM Dictated Date/Time: 02/15/2017 4:52 PM
[2017-02-15 16:59] LABS: BASO % 0.7 %; BASO ABS # 0.06 K/uL (0-0.2); COMPLETE YES; EOS % 5.5 %; HEMATOCRIT 39.5 % (42-52); IG% 0.2 %; LYMPH % 32.4 %; LYMPH ABS # 2.99 K/uL (1.2-3.4); MEAN CELL VOLUME 84.8 fL (80-100); MEAN CORPUSCULAR HEMOGLOBIN 26.8 pg (25-34); MEAN CORPUSCULAR HGB CONC 31.6 g/dl (32-36); MONO % 7.8 %; NEUT % 53.4 %; PLATELET COUNT 212 K/uL (130-400); RED BLOOD COUNT 4.66 M/uL (4.7-6.1); WHITE BLOOD COUNT 9.22 K/uL (4.8-10.8)
[2017-02-15 17:03] LABS: BENZODIAZEPINE, URINE NEG (NEG); COCAINE,URINE NEG (NEG); PHENCYCLIDINE, URINE NEG (NEG)
[2017-02-15 17:17] LABS: ALT/SGPT 22 U/L (12-78); AST/SGOT 16 U/L (15-37); BLOOD UREA NITROGEN 14 mg/dl (7-18); BUN/CREATININE RATIO 11.7 (10-20); CALCIUM 7.7 mg/dl (8.5-10.1); CARBON DIOXIDE 26 mmol/L (21-32); CHLORIDE 110 mmol/L (98-107); GLUCOSE 105 mg/dl (70-99); POTASSIUM 3.5 mmol/L (3.5-5.1); SODIUM 144 mmol/L (136-145)
[2017-02-15 17:28] LABS: ALKALINE PHOSPHATASE 92 U/L (45-117)
--- NOTE | 2017-02-16 01:09 | EMERGENCY ROOM VISIT NOTE ---
ED Visit Note Patient resting in no distress at 1:15 AM. Patient is currently under a bed search for psychiatric evaluation under 302. Patient advised by case management that the patient likely will receive a bed later today
[2017-02-16] MEDS ORDERED: NAPROXEN 250 MG TAB PO STA (07:26)
[2017-02-16] MEDS ORDERED: hydrOXYzine HCL 25 MG TAB PO STA (07:26)
[2017-02-16] MEDS ORDERED: DULOXETINE HCL 60 MG CAP PO STA (07:26)
[2017-02-16] MEDS ORDERED: GABAPENTIN 300 MG CAP PO STA (07:26)
[2017-02-16] MEDS ORDERED: QUETIAPINE FUMARATE 25 MG TAB PO STA (07:26)
[2017-02-16] MEDS ORDERED: PANTOprazole SOD 40 MG TAB PO STA (07:26)
[2017-02-16] MEDS ORDERED: OXYCODONE HCL IR 5 MG TAB (IMMEDIATE RELEASE) PO STA (07:26)
[2017-02-16] MEDS ORDERED: LEVOTHYROXINE 25 MCG TAB PO STA (07:26)
[2017-02-16] MEDS ORDERED: TAMSULOSIN HCL 0.4 MG CAP PO ONE (07:30)
[2017-02-16 15:54] VITALS: BP 140/80; PULSE 76; TEMP 36.9; O2SAT 96
--- NOTE | 2017-02-17 15:37 | EMERGENCY ROOM VISIT NOTE ---
ED Visit Note First contact with patient: 07:26 I received this patient in signout the change of shift, pending mental health bed search. Patient was given his morning medications including his medication. The patient was accepted to the [facility] and secure transportation arrangements were made. Please refer to previous documentation for details of the patient's visit.
[2017-02-18 11:12] LABS: COD UR NEGATIVE NG/ML (CUTOFF=50); HYDROCOD UR NEGATIVE NG/ML (CUTOFF=50); HYDROMOR UR NEGATIVE NG/ML (CUTOFF=50); MORPHINE UR 445 NG/ML (CUTOFF=50); NORHYDROCODONE CONF UR NEGATIVE NG/ML (CUTOFF=50); OXYMORPH UR 1470 NG/ML (CUTOFF=50)
[2017-07-19] MEDS ORDERED: TAMS0.4C38 PO (10:33)
[2017-07-19] MEDS ORDERED: NAPR500T3 PO (11:14)
[2017-07-19] MEDS ORDERED: OXY/15 PO (13:33)
== END 2017-02-16 15:54 ==
LOC: C.EDB 16:00 → C.EDA 02-16 15:54
DX: F32.9 Major depressive disorder, single episode, unspecified (principal); R45.851 Suicidal ideations; R44.3 Hallucinations, unspecified; F41.9 Anxiety disorder, unspecified; N40.0 Benign prostatic hyperplasia without lower urinary tract symptoms; G89.4 Chronic pain syndrome; E11.9 Type 2 diabetes mellitus without complications; E66.9 Obesity, unspecified; F60.9 Personality disorder, unspecified; Z86.711 Personal history of pulmonary embolism; Z80.9 Family history of malignant neoplasm, unspecified; Z83.3 Family history of diabetes mellitus; Z82.49 Family history of ischemic heart disease and other diseases of the circulatory system; Z84.1 Family history of disorders of kidney and ureter; Z83.6 Family history of other diseases of the respiratory system; F17.210 Nicotine dependence, cigarettes, uncomplicated; Z79.899 Other long term (current) drug therapy

== ENCOUNTER 2017-04-11 19:30 | Emergency (ER) | payer OTHER ==
[~2017-04-11] VITALS: Ht 182.9 cm; Wt 138.9 kg
[~2017-04-11 19:30] MED LIST changes: +ATV1 PO; +DOCU-94 PO; +DULO60CA44 PO; +FINA5TAB4 PO; +HYDR50CA2 PO; +MRLP527 PO; +NAPR500T3 PO; +OMEP20CA9 PO; +OXY/15 PO; +SRQ25 PO; +SUMA1INJ5 INJ; +TAMS0.4C38 PO; +TOPI200T20 PO; +TRAZ1TAB5 PO; +VNTHFA/IN INH
[2017-04-11 19:33] VITALS: TEMP 36.9; Ht 182.9 cm; Wt 138.9 kg
[2017-04-11] MEDS ORDERED: SODIUM CHLORIDE 0.9% 1000ML 1,000 ML IV STA (19:47)
[2017-04-11] MEDS ORDERED: CEFTRIAXONE SOD INJ 2,000 MG in DEXTROSE 5% 50ML 50 ML IV STA (19:47)
[2017-04-11] MEDS ORDERED: DiphenhydrAMINE HCL 50 MG/ML VIAL IV STA (19:47)
--- NOTE | 2017-04-11 19:57 | EMERGENCY ROOM VISIT NOTE ---
History Report prepared by Alek: Dwayne Cespedes Under the Supervision of: Dr. Misael Marroquin M.D. First contact with patient: 19:41 Chief Complaint: SKIN PROBLEM Stated Complaint: OPEN SORES FACE/ARMS,RT SIDE OF NOSE SWOLLEN,FEVER History of Present Illness The patient is a 46 year old male who presents to the Emergency Room with concerns over small lesions that are spread diffusely across upper/lower extremities and face. The patient states that he first noticed the lesions yesterday. He claims that they are irritated and that he has been itching at them. He was specifically concerned with an area on the right side of his nose, which is tender. He also complains of a fever last night, and neck pain and stiffness. His temperature was 103.7 last night, and 102.3 earlier today. He denies that he has come in contact with any unusual insects. No other complaints or concerns today. Source of History: patient Onset: Yesterday Position: other (Global) Quality: other (Diffuse lesions) Associated Symptoms: + fevers, + neck pain Review of Systems See HPI for pertinent positives & negatives. A total of 10 systems reviewed and were otherwise negative. Past Medical & Surgical Medical Problems: (1) Anxiety (2) Anxiety and depression (3) BPH (benign prostatic hypertrophy) (4) Chronic pain syndrome (5) Community acquired bacterial pneumonia (6) COPD, moderate (7) Diabetes (8) Drug ingestion (9) Ingestion of substance (10) Narcotic dependence (11) Obesity (12) Personality disorder (13) Positive blood culture (14) Pulmonary embolism (15) Suicidal ideation (16) Urinary retention Surgical Problems: (1) History of back surgery Family History Cancer Diabetes mellitus Heart disease Kidney disease Kidney stones Lung disease Social History Smoking Status: Current Every Day Smoker Alcohol Use: none Drug Use: none Marital Status: in relationship Housing Status: lives with family, long-term Occupation Status: disabled Current/Historical Medications Scheduled Doxycycline Hyclate (Vibramycin), 100 MG PO BID Duloxetine Hcl (Cymbalta), 120 MG PO DAILY Finasteride (Proscar), 5 MG PO DAILY Gabapentin (Neurontin), 600 MG PO TID Hydroxyzine Pamoate (Vistaril), 50 MG PO BID Levothyroxine Sodium (Synthroid), 25 MCG PO DAILYBB Morphine Sulfate (Morphine Sulfate Er), 15 MG PO Q12 Naproxen (Naproxen), 500 MG PO BID Omeprazole (Prilosec), 20 MG PO DAILY Oxycodone Hcl (Oxycodone Hcl), 1 TAB PO 5XD Potassium Chloride (Potassium Chloride Er), 2 CAP PO DAILY Quetiapine Fumarate (Quetiapine Fumarate), 25 MG PO BID Tamsulosin Hcl (Flomax), 0.4 MG PO DAILY Topiramate (Topamax), 200 MG PO HS Trazodone Hcl (Desyrel), 100 MG PO HS Scheduled PRN Albuterol Hfa (Ventolin Hfa), 2 PUFFS INH QID PRN for SOB/Wheezing Budesonide/Formoterol Fumarate (Symbicort 80/4.5 Inhaler), 1 PUFF INH BID PRN for COPD Docusate Sodium (Colace), 100 MG PO BID PRN for Constipation Lorazepam (Lorazepam), 1 MG PO BID PRN for Anxiety Ondansetron (Ondansetron HCl), 4 MG PO QID PRN for Nausea or Vomiting Polyethylene (Polyethylene Glycol 3350), 1 DOSE PO DAILY PRN for Constipation Sumatriptan Succinate (Sumatriptan Succinate), 6 MG INJ UD PRN for Migraine Tizanidine (Tizanidine HCl), 4 MG PO BID PRN for Muscle Spasms Allergies Coded Allergies: Fentanyl (Verified Allergy, Intermediate, RASH/HIVES/SKIN REDNESS, 02/15/17 ) FROM PATCH ONLY Valproic Acid (Verified Adverse Reaction, Intermediate, PANCREATITIS, 02/15) Valproic Acid and Related (Verified Adverse Reaction, Intermediate, PANCREATITS, 02/15/17) Physical Exam Vital Signs Date Time Temp Pulse Resp B/P (MAP) Pulse Ox O2 Delivery O2 Flow Rate FiO2 04/11/17 22:03 78 16 117/77 98 Room Air 04/11/17 21:32 82 16 118/81 98 Room Air 04/11/17 21:15 82 04/11/17 21:00 81 16 115/68 98 Room Air 04/11/17 19:46 82 16 143/108 100 Room Air 04/11/17 19:33 36.9 104 18 82/47 94 Room Air Physical Exam GENERAL: Patient is in no acute distress. HEENT: No acute trauma, normocephalic atraumatic, mucous membranes dry, no nasal congestion, no scleral icterus. The inside of the nose appears patent, without discharge. There is no throat erythema or exudate. NECK: No stridor, no adenopathy, no meningismus, trachea is midline. LUNGS: Clear to auscultation bilaterally, no wheeze, no rhonchi, breath sounds equal. HEART: Slightly tachycardic with a very subtle systolic murmur. Regular rhythm. ABDOMEN: Soft, nontender, bowel sounds positive, no hernias, no peritonitis. EXTREMITIES: No cyanosis or edema, full range of motion of all the joints without pain or difficulty, no signs for acute trauma. NEUROLOGIC: Oriented x 3, no acute motor or sensory deficits, no focal weakness. SKIN: No jaundice, no diaphoresis. There are open lesions on the arms and legs, some also on the face. There is some occasional surrounding erythema, no drainage. They appear to be scratched open areas. None are present on the back, chest, or groin. Medical Decision & Procedures Laboratory Results 04/11/17 20:35 Red Blood Count 4.88, Mean Corpuscular Volume 81.8, Mean Corpuscular Hemoglobin 29.3, Mean Corpuscular Hemoglobin Concent 35.8, Mean Platelet Volume 11.8, Neutrophils (%) (Auto) 57.0, Lymphocytes (%) (Auto) 26.2, Monocytes (%) (Auto) 9.7, Eosinophils (%) (Auto) 6.2, Basophils (%) (Auto) 0.7, Neutrophils # (Auto) 4.67, Lymphocytes # (Auto) 2.15, Monocytes # (Auto) 0.80, Eosinophils # (Auto) 0.51, Basophils # (Auto) 0.06 04/11/17 20:35 Test 04/11/17 20:35 04/11/17 20:38 White Blood Count 8.21 K/uL (4.8-10.8) Red Blood Count 4.88 M/uL (4.7-6.1) Hemoglobin 14.3 g/dL (14.0-18.0) Hematocrit 39.9 % (42-52) Mean Corpuscular Volume 81.8 fL (80-100) Mean Corpuscular Hemoglobin 29.3 pg (25-34) Mean Corpuscular Hemoglobin Concent 35.8 g/dl (32-36) Platelet Count 200 K/uL (130-400) Mean Platelet Volume 11.8 fL (7.4-10.4) Neutrophils (%) (Auto) 57.0 % Lymphocytes (%) (Auto) 26.2 % Monocytes (%) (Auto) 9.7 % Eosinophils (%) (Auto) 6.2 % Basophils (%) (Auto) 0.7 % Neutrophils # (Auto) 4.67 K/uL (1.4-6.5) Lymphocytes # (Auto) 2.15 K/uL (1.2-3.4) Monocytes # (Auto) 0.80 K/uL (0.11-0.59) Eosinophils # (Auto) 0.51 K/uL (0-0.5) Basophils # (Auto) 0.06 K/uL (0-0.2) RDW Standard Deviation 43.0 fL (36.4-46.3) RDW Coefficient of Variation 14.4 % (11.5-14.5) Immature Granulocyte % (Auto) 0.2 % Immature Granulocyte # (Auto) 0.02 K/uL (0.00-0.02) Anion Gap 8.0 mmol/L (3-11) Est Creatinine Clear Calc Drug Dose 88.9 ml/min Estimated GFR () 63.8 Estimated GFR (Non- 55.0 BUN/Creatinine Ratio 17.7 (10-20) Calcium Level 9.3 mg/dl (8.5-10.1) Lactic Acid Level 1.3 mmol/L (0.4-2.0) Laboratory results reviewed by me. Medications Administered Medications (Trade) Dose Ordered Sig/Amalia Route Start Time Stop Time Status Last Admin Dose Admin Ceftriaxone Sodium 2000 mg/ Dextrose 70 ml @ 100 mls/hr ONE STAT IV 04/11/17 19:47 04/11/17 20:28 DC 04/11/17 19:47 100 MLS/HR Sodium Chloride 1,000 ml @ 999 mls/hr Q1H1M STAT IV 04/11/17 19:47 04/11/17 20:47 DC 04/11/17 19:47 999 MLS/HR Diphenhydramine HCl (Benadryl Inj) 50 mg NOW STAT IV 04/11/17 19:47 04/11/17 19:51 DC 04/11/17 19:47 50 MG Doxycycline Hyclate (Vibramycin Cap) 100 mg ONE ONCE PO 04/11/17 21:30 04/11/17 21:31 DC 04/11/17 21:30 100 MG Potassium Chloride (Klor-Con M10) 40 meq NOW STAT PO 04/11/17 21:25 04/11/17 21:26 DC 04/11/17 21:25 40 MEQ ED Course 1943: The patient was evaluated in room C6. A complete history and physical exam was performed. 1946: Ordered Benadryl 50 mg IV, Sodium Chloride 1000 mL @ 999 mL/hr IV, Ceftriaxone 70 mL @ 1000 mL/hr IV. 2124: Ordered Potassium Chloride 40 meq PO. 2129: Ordered Doxycycline 100 mg PO. 2200: Reevaluated the patient. Discussed results and discharge instructions: He verbalized understanding and agreement. The patient is ready for discharge. Medical Decision Differential Diagnosis includes; Cellulitis, bacteremia, sepsis, MRSA, scratched open areas/lesions, insect bites, dehydration, electrolyte imbalance, There is no leukocytosis or concerning anemia. Renal panel testing show some mild dehydration. Potassium is low at 2.6. Lactic acid level is not elevated making sepsis less likely. Blood cultures are pending. The patient was not febrile or toxic. The lesions on his skin appeared to be scratched open. There were no lesions in areas where he could not reach. The patient did receive IV ceftriaxone and IV saline. He was given oral potassium and oral doxycycline. The patient received IV Benadryl for itching. The patient has done well, he is in no distress. He is being discharged on doxycycline, he may have an early cellulitis to one of the lesions on his face just to the right of the nose. The patient will be discharged on 4 more days of oral potassium. He will see his doctor this week for a recheck of his potassium and his renal function. If he is worsening, he can return for reassessment. Impression Primary Impression: Open wounds involving multiple regions of upper and lower extremities Additional Impressions: Cellulitis Hypokalemia Scribe Attestation The scribe's documentation has been prepared under my direction and personally reviewed by me in its entirety. I confirm that the note above accurately reflects all work, treatment, procedures, and medical decision making performed by me. Departure Information Dispostion Home / Self-Care Prescriptions Potassium Chloride (POTASSIUM CHLORIDE ER) 10 Meq Cap 2 CAP PO DAILY for 4 Days, #8 CAP Prov: Misael Marroquin M.D. 04/11/17 Doxycycline Hyclate (VIBRAMYCIN) 100 Mg Cap 100 MG PO BID for 10 Days, #20 CAP Prov: Misael Marroquin M.D. 04/11/17 Referrals Tesha Loredo M.D. (MEDICAL) (PCP) Forms HOME CARE DOCUMENTATION FORM, IMPORTANT VISIT INFORMATION, WORK / SCHOOL INSTRUCTIONS Patient Instructions My [facility] Additional Instructions doxycycline 2x per day for 10 days benadryl for itching watch for fever, worsening symptoms potassium tab daily for the next 4 days see your doctor this week for a repeat potassium test and recheck of your skin stay well hydrated--more fluids keep the lesions clean Problem Qualifiers
[2017-04-11] MEDS ORDERED: ZNF/4 PO (19:59)
[2017-04-11 20:55] LABS: BASO % 0.7 %; BASO ABS # 0.06 K/uL (0-0.2); COMPLETE YES; EOS % 6.2 %; HEMATOCRIT 39.9 % (42-52); IG% 0.2 %; LYMPH % 26.2 %; LYMPH ABS # 2.15 K/uL (1.2-3.4); MEAN CELL VOLUME 81.8 fL (80-100); MEAN CORPUSCULAR HEMOGLOBIN 29.3 pg (25-34); MEAN CORPUSCULAR HGB CONC 35.8 g/dl (32-36); MEAN PLATELET VOLUME 11.8 fL (7.4-10.4); MONO % 9.7 %; PLATELET COUNT 200 K/uL (130-400); RED BLOOD COUNT 4.88 M/uL (4.7-6.1); WHITE BLOOD COUNT 8.21 K/uL (4.8-10.8)
[2017-04-11 21:19] LABS: BUN/CREATININE RATIO 17.7 (10-20); CALCIUM 9.3 mg/dl (8.5-10.1); CREATININE 1.5 mg/dl (0.60-1.40); POTASSIUM 2.6 mmol/L (3.5-5.1)
[2017-04-11] MEDS ORDERED: POTASSIUM CHLORIDE 10 MEQ TABCR PO STA (21:25)
[2017-04-11] MEDS ORDERED: DOXYCYCLINE HYCLATE 100 MG CAP PO ONE (21:30)
[2017-04-11 22:03] VITALS: BP 117/77; PULSE 78; O2SAT 98
[2017-04-11] MEDS ORDERED: DOXY100C PO (22:09)
[2017-04-11] MEDS ORDERED: POTA1CAP2 PO (22:09)
[2017-05-09] MEDS ORDERED: GABA1CAP4 PO (16:07)
== END 2017-04-11 22:25 | disposition home or self-care (01) ==
LOC: C.EDB 19:31 → C.EDC 22:25
DX: T14.8 Other injury of unspecified body region (principal); L03.90 Cellulitis, unspecified; E87.6 Hypokalemia; X58.XXXA Exposure to other specified factors, initial encounter; F41.9 Anxiety disorder, unspecified; F32.9 Major depressive disorder, single episode, unspecified; N40.0 Benign prostatic hyperplasia without lower urinary tract symptoms; J44.9 Chronic obstructive pulmonary disease, unspecified; E11.9 Type 2 diabetes mellitus without complications; E66.9 Obesity, unspecified; F60.9 Personality disorder, unspecified; I26.99 Other pulmonary embolism without acute cor pulmonale; Z83.3 Family history of diabetes mellitus; Z82.49 Family history of ischemic heart disease and other diseases of the circulatory system; F17.200 Nicotine dependence, unspecified, uncomplicated

== ENCOUNTER 2017-05-09 14:32 | Emergency (ER) | payer OTHER ==
[~2017-05-09] VITALS: Ht 182.9 cm; Wt 137.0 kg
[~2017-05-09 14:32] MED LIST changes: -ATV1 PO; -CYCL10TA7 PO; -DOCU-94 PO; -DULO60CA44 PO; -FINA5TAB4 PO; -HYDR50CA2 PO; -MRLP527 PO; -NAPR500T3 PO; -OMEP20CA9 PO; -SRQ25 PO; -SUMA1INJ5 INJ; -TAMS0.4C38 PO; -TOPI200T20 PO; -TRAZ1TAB5 PO; -VNTHFA/IN INH; +ZNF/4 PO
[2017-05-09 14:35] VITALS: TEMP 36.8; Ht 182.9 cm; Wt 137.0 kg
[2017-05-09] MEDS ORDERED: ALBUT/IPRATROP 3MG/0.5MG NEB 3 ML VIAL INH STA ×2 (15:22→17:19)
--- NOTE | 2017-05-09 15:44 | EMERGENCY ROOM VISIT NOTE ---
History Report prepared by Alek: Marcella Julian Under the Supervision of: Dr. Stanton Dyer D.O. First contact with patient: 15:15 Chief Complaint: RESPIRATORY PROBLEMS Stated Complaint: CANT BREATH, COUGH, SICK History of Present Illness The patient is a 46 year old male who presents to the Emergency Room with complaints of constant shortness of breath beginning 2 weeks ago. The patient states that he was seen here 2 weeks ago with an infection and was given antibiotics but it has continued to worsen. He complains of an intermittent fever and a productive cough. He notes that his fever has not been any higher than 103. The patient denies any hematochezia and leg swelling. He notes that he took Theraflu today without relief of his symptoms. The patient reports that he smoke cigarettes and he has been using inhalers without relief. Source of History: patient Onset: 2 weeks ago Position: other (respiratory) Quality: other (SOB) Timing: constant Associated Symptoms: + fevers, + cough Note: The patient denies any hematochezia and leg swelling. Review of Systems See HPI for pertinent positives & negatives. A total of 10 systems reviewed and were otherwise negative. Past Medical & Surgical Medical Problems: (1) Anxiety (2) Anxiety and depression (3) BPH (benign prostatic hypertrophy) (4) Chronic pain syndrome (5) Community acquired bacterial pneumonia (6) COPD, moderate (7) Diabetes (8) Drug ingestion (9) Ingestion of substance (10) Narcotic dependence (11) Obesity (12) Personality disorder (13) Positive blood culture (14) Pulmonary embolism (15) Suicidal ideation (16) Urinary retention Surgical Problems: (1) History of back surgery Family History Cancer Diabetes mellitus Heart disease Kidney disease Kidney stones Lung disease Social History Smoking Status: Current Every Day Smoker Alcohol Use: none Drug Use: none Marital Status: in relationship Housing Status: lives with family, intermediate Occupation Status: disabled Current/Historical Medications Scheduled Duloxetine Hcl (Cymbalta), 120 MG PO DAILY Finasteride (Proscar), 5 MG PO DAILY Gabapentin (Gabapentin), 300 MG PO TID Hydroxyzine Pamoate (Vistaril), 50 MG PO BID Levofloxacin (Levaquin), 750 MG PO DAILY Levothyroxine Sodium (Synthroid), 25 MCG PO DAILYBB Morphine Sulfate (Morphine Sulfate Er), 15 MG PO Q12 Naproxen (Naproxen), 500 MG PO BID Oxycodone Hcl (Oxycodone Hcl), 1 TAB PO 5XD Prednisone (Prednisone Tab), 40 MG PO DAILY Tamsulosin Hcl (Flomax), 0.4 MG PO DAILY Topiramate (Topamax), 200 MG PO HS Trazodone Hcl (Desyrel), 100 MG PO HS Scheduled PRN Albuterol Hfa (Ventolin Hfa), 2 PUFFS INH QID PRN for SOB/Wheezing Docusate Sodium (Colace), 100 MG PO BID PRN for Constipation Lorazepam (Lorazepam), 1 MG PO BID PRN for Anxiety Omeprazole (Prilosec), 20 MG PO DAILY PRN for GI Upset Ondansetron (Ondansetron HCl), 4 MG PO QID PRN for Nausea or Vomiting Polyethylene (Polyethylene Glycol 3350), 17 GM PO DAILY PRN for Constipation Quetiapine Fumarate (Quetiapine Fumarate), 25 MG PO BID PRN for Anxiety/ Agitation Sumatriptan Succinate (Sumatriptan Succinate), 6 MG INJ UD PRN for Migraine Tizanidine (Tizanidine HCl), 4 MG PO BID PRN for Muscle Spasms Allergies Coded Allergies: Fentanyl (Verified Allergy, Intermediate, RASH/HIVES/SKIN REDNESS, 05/09/17 ) FROM PATCH ONLY Valproic Acid (Verified Adverse Reaction, Intermediate, PANCREATITIS, 05/09) Valproic Acid and Related (Verified Adverse Reaction, Intermediate, PANCREATITS, 05/09/17) Physical Exam Vital Signs Date Time Temp Pulse Resp B/P (MAP) Pulse Ox O2 Delivery O2 Flow Rate FiO2 05/09/17 19:36 91 05/09/17 19:36 144/90 05/09/17 19:07 77 24 90 05/09/17 19:06 148/103 05/09/17 17:48 84 24 31/85 94 4.0 05/09/17 17:43 131/85 05/09/17 17:37 88 22 94 05/09/17 17:07 89 23 89 05/09/17 17:02 182 31 95 05/09/17 16:57 94 Nasal Cannula 2.0 05/09/17 16:57 94 Nasal Cannula 2.0 05/09/17 16:46 120/83 05/09/17 16:32 88 26 05/09/17 16:27 87 05/09/17 16:20 122/96 05/09/17 16:13 88 Room Air 05/09/17 14:35 36.8 104 20 124/78 88 Room Air Physical Exam GENERAL: Patient is awake, alert, and in no acute distress. Patient is resting comfortably and mildly anxious appearing EYES: The conjunctivae are clear. The pupils are round and reactive. EARS, NOSE, MOUTH AND THROAT: The nose is without any evidence of any deformity. Mucous membranes are moist tongue is midline NECK: The neck is nontender and supple. RESPIRATORY: Lung sounds diminished throughout, expiratory wheezing in all hendrickson, mild tachypnea and conversational dyspnea noted. CARDIOVASCULAR: Regular rate and rhythm noted there no murmurs rubs or gallops normal S1 normal S2 GASTROINTESTINAL: The abdomen is soft. Bowel sounds are present in all quadrants. Abdomen is nontender MUSCULOSKELETAL/EXTREMITIES: There is no evidence of gross deformity full range of motion is noted in the hips and shoulders SKIN: There is no obvious evidence of any rash. There are no petechiae, pallor or cyanosis noted. Pedal edema bilaterally. NEUROLOGIC: Patient is awake alert and oriented x3 Medical Decision & Procedures ER Provider Diagnostic Interpretation: Radiology results as stated below per my review and radiologist interpretation: SINGLE VIEW CHEST FINDINGS: An AP, portable, upright chest radiograph is compared to study dated 02/15/2017 and correlated with chest CT dated 08/04/2016. The examination is degraded by portable technique and patient rotation. The cardiomediastinal silhouette is unremarkable. The lungs and pleural spaces are clear. No pneumothorax is seen. The bony thorax is grossly intact. IMPRESSION: No active disease in the chest. Electronically signed by: Misael Lopez M.D. 05/09/2017 3:43 PM Dictated Date/Time: 05/09/2017 3:[address] ANGIOGRAM OF THE CHEST FINDINGS: Thyroid: Imaged portions of the thyroid gland are normal in size and attenuation. Thoracic aorta: The thoracic aorta is normal in caliber and demonstrates standard 3-vessel arch anatomy. No dissection is seen. Pulmonary vasculature: The pulmonary trunk is normal in caliber. There are no filling defects identified in main, lobar, or segmental pulmonary branches to suggest pulmonary embolus. Heart: The heart is normal in size and configuration, and without pericardial effusion. Lungs and pleural spaces: There is minimal patchy airspace consolidation at the medial right lung base. Tree-in-bud airspace opacities are scattered throughout both lungs, greatest on the right. Diffuse peribronchial thickening is noted. There is no pleural effusion. The trachea and central airways are clear. Mediastinum: Prominent mediastinal lymph nodes are not pathologically enlarged by size criteria. Rebekah: Prominent hilar lymph nodes measure up to 8 mm in short axis. Axillae: There is no axillary lymphadenopathy. Upper abdomen: There is a tiny hiatal hernia. Partially visualized upper abdominal viscera is otherwise within normal limits. Skeletal structures: No lytic or blastic bony lesions are seen. IMPRESSION: 1. There is no evidence of pulmonary embolus in the main, lobar, or segmental pulmonary arteries. 2. There are patchy opacities at the right lung base, mild diffuse tree-in-bud nodularity, and mild diffuse peribronchial thickening. These findings suggest a nonspecific infectious/inflammatory pneumonitis. Clinical correlation will be required. 3. No pleural effusion is seen. 4. Prominent mediastinal and hilar lymph nodes are likely on a reactive basis. Electronically signed by: Misael Lopez M.D. 05/09/2017 6:48 PM Dictated Date/Time: 05/09/2017 6:44 PM Laboratory Results 05/09/17 16:40 Red Blood Count 4.46, Mean Corpuscular Volume 84.1, Mean Corpuscular Hemoglobin 28.3, Mean Corpuscular Hemoglobin Concent 33.6, Mean Platelet Volume 11.4, Neutrophils (%) (Auto) 54.1, Lymphocytes (%) (Auto) 30.2, Monocytes (%) (Auto) 9.8, Eosinophils (%) (Auto) 5.4, Basophils (%) (Auto) 0.3, Neutrophils # (Auto) 5.05, Lymphocytes # (Auto) 2.81, Monocytes # (Auto) 0.91, Eosinophils # (Auto) 0.50, Basophils # (Auto) 0.03 05/09/17 16:40 Test 05/09/17 16:40 05/09/17 16:56 White Blood Count 9.32 K/uL (4.8-10.8) Red Blood Count 4.46 M/uL (4.7-6.1) Hemoglobin 12.6 g/dL (14.0-18.0) Hematocrit 37.5 % (42-52) Mean Corpuscular Volume 84.1 fL (80-100) Mean Corpuscular Hemoglobin 28.3 pg (25-34) Mean Corpuscular Hemoglobin Concent 33.6 g/dl (32-36) Platelet Count 217 K/uL (130-400) Mean Platelet Volume 11.4 fL (7.4-10.4) Neutrophils (%) (Auto) 54.1 % Lymphocytes (%) (Auto) 30.2 % Monocytes (%) (Auto) 9.8 % Eosinophils (%) (Auto) 5.4 % Basophils (%) (Auto) 0.3 % Neutrophils # (Auto) 5.05 K/uL (1.4-6.5) Lymphocytes # (Auto) 2.81 K/uL (1.2-3.4) Monocytes # (Auto) 0.91 K/uL (0.11-0.59) Eosinophils # (Auto) 0.50 K/uL (0-0.5) Basophils # (Auto) 0.03 K/uL (0-0.2) RDW Standard Deviation 47.1 fL (36.4-46.3) RDW Coefficient of Variation 15.3 % (11.5-14.5) Immature Granulocyte % (Auto) 0.2 % Immature Granulocyte # (Auto) 0.02 K/uL (0.00-0.02) Prothrombin Time 10.5 SECONDS (9.0-12.0) Prothromb Time International Ratio 1.0 (0.9-1.1) Activated Partial Thromboplast Time 23.8 SECONDS (21.0-31.0) Partial Thromboplastin Ratio 0.9 Anion Gap 6.0 mmol/L (3-11) Est Creatinine Clear Calc Drug Dose 153.9 ml/min Estimated GFR () 120.5 Estimated GFR (Non- 104.0 BUN/Creatinine Ratio 13.5 (10-20) Calcium Level 8.6 mg/dl (8.5-10.1) Total Bilirubin 0.4 mg/dl (0.2-1) Aspartate Amino Transf (AST/SGOT) 12 U/L (15-37) Alanine Aminotransferase (ALT/SGPT) 17 U/L (12-78) Alkaline Phosphatase 79 U/L (45-117) Total Creatine Kinase 98 U/L (39-308) Creatine Kinase MB < 0.5 ng/ml (0.5-3.6) Creatine Kinase MB Ratio (0-3.0) Troponin I < 0.015 ng/ml (0-0.045) Pro-B-Type Natriuretic Peptide 351 pg/ml (0-450) Total Protein 6.4 gm/dl (6.4-8.2) Albumin 2.9 gm/dl (3.4-5.0) Globulin 3.5 gm/dl (2.5-4.0) Albumin/Globulin Ratio 0.8 (0.9-2) Chemistry Specimen Hemolysis Bedside D-Dimer > 450 ng/mlFEU (0-450) Laboratory results per my review. Medications Administered Medications (Trade) Dose Ordered Sig/Amalia Route Start Time Stop Time Status Last Admin Dose Admin Albuterol/ Ipratropium (Duoneb) 3 ml NOW STAT INH 05/09/17 15:22 05/09/17 15:23 DC 05/09/17 16:13 3 ML Albuterol/ Ipratropium (Duoneb) 3 ml NOW STAT INH 05/09/17 17:19 05/09/17 17:21 DC 05/09/17 17:37 3 ML Methylprednisolone Sodium Succinate (Solu-Medrol IV) 125 mg NOW STAT IV 05/09/17 17:19 05/09/17 17:21 DC 05/09/17 17:37 125 MG Levofloxacin (Levaquin Tab) 750 mg NOW STAT PO 05/09/17 19:06 05/09/17 19:07 DC 05/09/17 19:54 750 MG ECG Indication: SOB/dyspnea Rate (beats per minute): 92 Rhythm: normal sinus Findings: no ectopy, other (no ST segment abnormaliteis ) Comparison ECG Date: 01/24/17 Change: no significant change ED Course 1515: The patient was evaluated in room B7. A complete history and physical examination were performed. 152: Duoneb 3ml INH. 1719: Solu-Medrol IV 125mg IV, Duoneb 3ml INH. 1902: I reevaluated and updated the patient. 1905: Levofloxacin 750mg PO. 1920: Upon reevaluation, the patient is doing well. I discussed the results and treatment plan with the patient. He verbalized agreement of the treatment plan. The patient was discharged home. Medical Decision Differential diagnosis: Etiologies such as infections, reactive airway disease, pneumonia, pneumothorax , COPD, CHF, cardiac ischemia, pulmonary embolism, musculoskeletal, gastrointestinal, as well as others were entertained. Nursing notes reviewed. The patient is a 46-year-old male who presented to emergency department for shortness of breath. The patient has had recent diagnosis of pneumonia but continues to smoke. His overall physical exam appears to be consistent with bronchospasm. The patient was treated with bronchodilator therapy and IV steroids in emergency department. He was found have an elevated d-dimer so CT the chest was obtained. No signs of venous thromboembolic disease were noted however he was noted to have an area of possible pulmonary infection. For this reason he was started on antibiotic. I discussed the patient's laboratory and radiographic studies with him. I also discussed his case with the emergency Department pillowcase maker. He was feeling much better on subsequent reevaluation and did not meet criteria for admission at this time. The patient was encouraged to rest and avoid any strenuous activity. He was encouraged to stop smoking and follow-up with his primary care physician as soon as possible. He was also encouraged to return the emergency Department immediately if symptoms change worsen or the need arises. Medication Reconcilliation Current Medication List: was personally reviewed by me Blood Pressure Screening Patient's blood pressure: Normal blood pressure Blood pressure disposition: Did not require urgent referral Impression Primary Impression: Pneumonia Additional Impressions: Chest pain SOB (shortness of breath) Scribe Attestation The scribe's documentation has been prepared under my direction and personally reviewed by me in its entirety. I confirm that the note above accurately reflects all work, treatment, procedures, and medical decision making performed by me. Departure Information Dispostion Home / Self-Care Prescriptions Levofloxacin (Levaquin) 750 Mg Tab 750 MG PO DAILY, #7 TAB Prov: Stanton Dyer, DO 05/09/17 Prednisone (Prednisone Tab) 20 Mg Tab 40 MG PO DAILY, #10 TAB Prov: Stanton Dyer, DO 05/09/17 Referrals Tesha Loredo M.D. (MEDICAL) (PCP) Forms HOME CARE DOCUMENTATION FORM, IMPORTANT VISIT INFORMATION, WORK / SCHOOL INSTRUCTIONS Patient Instructions ED Smoking Cessation, My [facility], Pneumonia Additional Instructions Call your family in the morning to schedule a follow-up appointment. Rest and continue all medications as prescribed. Stop smoking. Continue using her breathing treatments. Problem Qualifiers Primary Impression: Pneumonia Pneumonia type: due to unspecified organism Laterality: unspecified laterality Lung location: unspecified part of lung Qualified Codes: J18.9 - Pneumonia, unspecified organism Additional Impressions: Chest pain Chest pain type: unspecified Qualified Codes: R07.9 - Chest pain, unspecified
[2017-05-09 16:57] VITALS: O2SAT 94
[2017-05-09 17:05] LABS: BASO % 0.3 %; BASO ABS # 0.03 K/uL (0-0.2); COMPLETE YES; EOS % 5.4 %; HEMATOCRIT 37.5 % (42-52); IG% 0.2 %; LYMPH % 30.2 %; LYMPH ABS # 2.81 K/uL (1.2-3.4); MEAN CELL VOLUME 84.1 fL (80-100); MEAN CORPUSCULAR HEMOGLOBIN 28.3 pg (25-34); MEAN CORPUSCULAR HGB CONC 33.6 g/dl (32-36); MEAN PLATELET VOLUME 11.4 fL (7.4-10.4); MONO % 9.8 %; NEUT % 54.1 %; PLATELET COUNT 217 K/uL (130-400); RED BLOOD COUNT 4.46 M/uL (4.7-6.1); WHITE BLOOD COUNT 9.32 K/uL (4.8-10.8)
[2017-05-09] MEDS ORDERED: METHYLPREDNISOLONE 125 MG VIAL IV STA (17:19)
[2017-05-09 17:27] LABS: PARTIAL THROMBOPLASTIN RATIO 0.9; PROTHROMBIN TIME (PATIENT) 10.5 SECONDS (9.0-12.0)
[2017-05-09] MEDS ORDERED: OPTIRAY 320 IV PRN (17:30)
[2017-05-09 17:35] LABS: ALB/GLOB RATIO 0.8 (0.9-2); ALKALINE PHOSPHATASE 79 U/L (45-117); ALT/SGPT 17 U/L (12-78); AST/SGOT 12 U/L (15-37); BLOOD UREA NITROGEN 12 mg/dl (7-18); BUN/CREATININE RATIO 13.5 (10-20); CALCIUM 8.6 mg/dl (8.5-10.1); CARBON DIOXIDE 29 mmol/L (21-32); CHLORIDE 108 mmol/L (98-107); CREATININE 0.86 mg/dl (0.60-1.40); GLUCOSE 89 mg/dl (70-99); POTASSIUM 3.7 mmol/L (3.5-5.1); SODIUM 143 mmol/L (136-145)
--- NOTE | 2017-05-09 18:50 | DIAGNOSTIC IMAGING REPORT ---
CT ANGIOGRAM OF THE CHEST CLINICAL HISTORY: Dyspnea. COMPARISON STUDY: Chest CT scans dated 08/04/2016 and 10/24/2014. Chest x-ray dated 05/09/2017. TECHNIQUE: Following the IV administration of 93 cc of Optiray 320, CT angiogram of the chest was performed from the upper abdomen to the thoracic inlet utilizing the pulmonary embolus protocol. Images are reviewed in the axial, sagittal, and coronal planes. 3-D MIPS images are created and assessed. IV contrast was administered without complication. A dose lowering technique was utilized adhering to the principles of ALARA. CT DOSE: 787.67 mGy.cm FINDINGS: Thyroid: Imaged portions of the thyroid gland are normal in size and attenuation. Thoracic aorta: The thoracic aorta is normal in caliber and demonstrates standard 3-vessel arch anatomy. No dissection is seen. Pulmonary vasculature: The pulmonary trunk is normal in caliber. There are no filling defects identified in main, lobar, or segmental pulmonary branches to suggest pulmonary embolus. Heart: The heart is normal in size and configuration, and without pericardial effusion. Lungs and pleural spaces: There is minimal patchy airspace consolidation at the medial right lung base. Tree-in-bud airspace opacities are scattered throughout both lungs, greatest on the right. Diffuse peribronchial thickening is noted. There is no pleural effusion. The trachea and central airways are clear. Mediastinum: Prominent mediastinal lymph nodes are not pathologically enlarged by size criteria. Rebekah: Prominent hilar lymph nodes measure up to 8 mm in short axis. Axillae: There is no axillary lymphadenopathy. Upper abdomen: There is a tiny hiatal hernia. Partially visualized upper abdominal viscera is otherwise within normal limits. Skeletal structures: No lytic or blastic bony lesions are seen. IMPRESSION: 1. There is no evidence of pulmonary embolus in the main, lobar, or segmental pulmonary arteries. 2. There are patchy opacities at the right lung base, mild diffuse tree-in-bud nodularity, and mild diffuse peribronchial thickening. These findings suggest a nonspecific infectious/inflammatory pneumonitis. Clinical correlation will be required. 3. No pleural effusion is seen. 4. Prominent mediastinal and hilar lymph nodes are likely on a reactive basis. Electronically signed by: Misael Lopez M.D. 05/09/2017 6:48 PM Dictated Date/Time: 05/09/2017 6:44 PM
[2017-05-09] MEDS ORDERED: LEVOFLOXACIN 250 MG TAB PO STA (19:06)
[2017-05-09 19:07] VITALS: O2SAT 90
[2017-05-09] MEDS ORDERED: LEVO1TAB35 PO (19:14)
[2017-05-09] MEDS ORDERED: PRED20TA2 PO (19:14)
[2017-05-09 19:36] VITALS: BP 144/90; PULSE 91
[2017-07-03] MEDS ORDERED: TAMS0.4C38 PO (10:33)
[2017-07-03] MEDS ORDERED: NAPR500T3 PO (11:14)
[2017-07-03] MEDS ORDERED: GABA1CAP4 PO (16:07)
[2017-07-03] MEDS ORDERED: DOCU-94 PO (16:26)
[2017-07-03] MEDS ORDERED: ATV1 PO (17:06)
[2017-07-03] MEDS ORDERED: TRAZ1TAB5 PO (17:06)
[2017-07-03] MEDS ORDERED: HYDR50CA2 PO (17:06)
[2017-07-03] MEDS ORDERED: FINA5TAB4 PO (17:06)
[2017-07-03] MEDS ORDERED: SRQ25 PO (17:06)
[2017-07-03] MEDS ORDERED: TOPI200T20 PO (17:06)
[2017-07-03] MEDS ORDERED: OMEP20CA9 PO (17:09)
[2017-07-03] MEDS ORDERED: SUMA1INJ5 INJ (17:56)
[2017-07-03] MEDS ORDERED: VNTHFA/IN INH (18:15)
[2017-07-03] MEDS ORDERED: DULO60CA44 PO (18:15)
== END 2017-05-09 20:04 | disposition home or self-care (01) ==
LOC: C.EDB 14:33
DX: J18.9 Pneumonia, unspecified organism (principal); R07.9 Chest pain, unspecified; R06.02 Shortness of breath; F17.210 Nicotine dependence, cigarettes, uncomplicated; F41.9 Anxiety disorder, unspecified; F32.9 Major depressive disorder, single episode, unspecified; N40.0 Benign prostatic hyperplasia without lower urinary tract symptoms; J44.9 Chronic obstructive pulmonary disease, unspecified; G89.4 Chronic pain syndrome; E11.9 Type 2 diabetes mellitus without complications; E66.9 Obesity, unspecified; F60.7 Dependent personality disorder; F60.9 Personality disorder, unspecified; F11.20 Opioid dependence, uncomplicated; Z86.711 Personal history of pulmonary embolism; Z83.3 Family history of diabetes mellitus; Z84.1 Family history of disorders of kidney and ureter

== ENCOUNTER 2017-07-03 19:04 | Emergency (ER) | payer OTHER ==
[~2017-07-03] VITALS: Ht 182.9 cm; Wt 145.4 kg
[~2017-07-03 19:04] MED LIST changes: +ATV1 PO; +DOCU-94 PO; +DULO60CA44 PO; +FINA5TAB4 PO; +GABA1CAP4 PO; +HYDR50CA2 PO; +LEVO1TAB35 PO; +NAPR500T3 PO; -NRN/600 PO; +OMEP20CA9 PO; +PRED20TA2 PO; +SRQ25 PO; +SUMA1INJ5 INJ; -SYMIN/8045 INH; +TAMS0.4C38 PO; +TOPI200T20 PO; +TRAZ1TAB5 PO; +VNTHFA/IN INH
[2017-07-03 19:15] VITALS: TEMP 36.9; Ht 182.9 cm; Wt 145.4 kg
[2017-07-03] MEDS ORDERED: MORP-157 PO (19:48)
[2017-07-03] MEDS ORDERED: CYCL10TA7 PO (19:48)
[2017-07-03] MEDS ORDERED: LEVO25TA5 PO (19:48)
[2017-07-03] MEDS ORDERED: PROPARACAINE HCL 0.5% OP SOLN 15 ML BTL ONE (19:48)
[2017-07-03] MEDS ORDERED: MRLP527 PO (19:55)
[2017-07-03] MEDS ORDERED: IBUPROFEN 600 MG TAB PO STA (19:57)
--- NOTE | 2017-07-03 19:57 | DIAGNOSTIC IMAGING REPORT ---
LEFT ANKLE 3 VIEWS CLINICAL HISTORY: Left ankle twisting injury. FINDINGS: 3 views of left ankle are obtained. No prior studies are available for comparison at the time of dictation. The skeletal structures are well mineralized. No fracture is seen. The ankle mortise is intact. There is a dorsal calcaneal enthesophyte. No joint effusion is seen. The overlying soft tissues are within normal limits. Phleboliths are noted in the calf. IMPRESSION: There is no radiographic evidence of left ankle fracture. Electronically signed by: Misael Lopez M.D. 07/03/2017 7:56 PM Dictated Date/Time: 07/03/2017 7:54 PM
--- NOTE | 2017-07-03 20:20 | EMERGENCY ROOM VISIT NOTE ---
ED Visit Note First contact with patient: 19:20 Staff note: I have reviewed the Patients chart and have discussed this case with my PA. I generally agree with the ED note and findings.
--- NOTE | 2017-07-03 20:22 | EMERGENCY ROOM VISIT NOTE ---
ED Visit Note First contact with patient: 19:20 CHIEF COMPLAINT: Left ankle injury one hour ago HISTORY OF PRESENT ILLNESS: Patient is a 46-year-old white male who presents emergency department for evaluation of a left ankle injury. He states that it occurred about an hour ago, when he twisted his left ankle going down his concrete steps in his backyard. He also cut the ankle on the edge of the step and is concerned that he might need sutures. He complains of pain in the lateral aspect of the ankle. He is having difficulty weightbearing. His significant other cleansed his wound and applied a Band-Aid. He rates his discomfort and 8/10. REVIEW OF SYSTEMS: Review of systems as per HPI. All other systems reviewed were negative. At least 6 systems reviewed. PMH: Electronic medical records are reviewed and summarized as above/below. See Problem List. SOCIAL HISTORY: Patient lives at home. Smoker. PHYSICAL EXAM: Vital Signs: Reviewed Nurse's notes. MENTAL STATUS: Alert, oriented, and cooperative. The left ankle is not swollen, is slightly tender over the lateral aspect. There is a small, 1 cm, slightly gaping laceration over the lateral malleolus, with surrounding abrasion. No ligamentous instability. No pain over the 5th metatarsal or fibular head. Lisfranc joint is negative. There is no deformity. The foot and toes are warm and well- perfused. Sensation to pain and light touch is intact. EMERGENCY DEPARTMENT COURSE: X-ray reveals no fracture, only the soft tissue swelling. Wound care measures were discussed with the patient. He was offered Dermabond, Steri-Strips and sutures, and has elected suture closure. The wound was prepped with Betadine and draped sterilely. He was agreeable to foregoing local anesthesia. One, 4-0 nylon suture was placed across the wound. A light dressing was applied over the wounds, then a compression sleeve and gel splint were applied to the ankle under my direction and the position was satisfactory. Walker were issued and patient was instructed on a non weight bearing gait. He was medicated with ibuprofen 600 mg orally. He was also given an ice pack. Medication reconciliation: I attest that I have personally reviewed the patient' s current medication list. Blood pressure screening : Patient was found to have normal blood pressure on screening and does not require follow-up. Differential diagnosis include foot verses ankle sprain/fracture, contusion, dislocation. LEFT ANKLE 3 VIEWS CLINICAL HISTORY: Left ankle twisting injury. FINDINGS: 3 views of left ankle are obtained. No prior studies are available for comparison at the time of dictation. The skeletal structures are well mineralized. No fracture is seen. The ankle mortise is intact. There is a dorsal calcaneal enthesophyte. No joint effusion is seen. The overlying soft tissues are within normal limits. Phleboliths are noted in the calf. IMPRESSION: There is no radiographic evidence of left ankle fracture. Problem List Medical Problems: (1) Anxiety and depression Status: Chronic (2) Chronic pain syndrome Status: Chronic (3) COPD, moderate Status: Chronic (4) Narcotic dependence Status: Chronic (5) Obesity Status: Chronic (6) Pulmonary embolism Status: Chronic Surgical Problems: (1) History of back surgery Status: Chronic Current/Historical Medications Scheduled Duloxetine Hcl (Cymbalta), 120 MG PO DAILY Finasteride (Proscar), 5 MG PO DAILY Gabapentin (Gabapentin), 300 MG PO TID Hydroxyzine Pamoate (Vistaril), 50 MG PO BID Levothyroxine Sodium (Levothyroxine Sodium), 25 MCG PO DAILY Lorazepam (Lorazepam), 1 MG PO BID Morphine Cont Rel (Ms Contin), 15 MG PO Q12 Naproxen (Naproxen), 500 MG PO BID Oxycodone Hcl (Oxycodone Hcl), 1 TAB PO QID Tamsulosin Hcl (Flomax), 0.4 MG PO DAILY Topiramate (Topamax), 200 MG PO HS Trazodone Hcl (Desyrel), 100 MG PO HS Scheduled PRN Albuterol Hfa (Ventolin Hfa), 2 PUFFS INH QID PRN for SOB/Wheezing Cyclobenzaprine HCl (Cyclobenzaprine HCl), 10 MG PO BID PRN for Muscle Spasms Docusate Sodium (Colace), 100 MG PO HS PRN for Constipation Omeprazole (Prilosec), 20 MG PO DAILY PRN for GI Upset Polyethylene (Polyethylene Glycol 3350), 17 GM PO DAILY PRN for Constipation Quetiapine Fumarate (Quetiapine Fumarate), 25 MG PO BID PRN for Anxiety/ Agitation Sumatriptan Succinate (Sumatriptan Succinate), 6 MG INJ UD PRN for Migraine Allergies Coded Allergies: Fentanyl (Verified Allergy, Intermediate, RASH/HIVES/SKIN REDNESS, 05/09/17 ) FROM PATCH ONLY Valproic Acid (Verified Adverse Reaction, Intermediate, PANCREATITIS, 05/09) Valproic Acid and Related (Verified Adverse Reaction, Intermediate, PANCREATITS, 05/09/17) Vital Signs Date Time Temp Pulse Resp B/P (MAP) Pulse Ox O2 Delivery O2 Flow Rate FiO2 07/03/17 19:15 36.9 87 20 146/62 95 Room Air Medications Administered Medications (Trade) Dose Ordered Sig/Amalia Route Start Time Stop Time Status Last Admin Dose Admin Ibuprofen (Motrin Tab) 600 mg NOW STAT PO 07/03/17 19:57 07/03/17 19:58 DC 07/03/17 20:02 600 MG Departure Information Impression Primary Impression: Left ankle sprain Additional Impression: Laceration of ankle without complication Referrals Tesha Loredo M.D. (MEDICAL) (PCP) Patient Instructions [facility] Additional Instructions Ibuprofen(Motrin, Advil) may be used for fever or pain. Use 600mg every six hours as needed. Take with food. Avoid using more than 2400mg in a 24 hour period. Do not use 2400mg per day for more than three consecutive days without physician direction. Prolonged inappropriate use can lead to stomach upset or ulcers. This medication can be taken if you need to drive, work, or perform activities which may be dangerous when taking narcotic pain medication. (AND/OR) Acetaminophen(Tylenol) may be used for fever or pain. Use 1000mg every six hours as needed. Avoid using more than 3000mg in a 24 hour period. This medication can be taken if you need to drive, work, or perform activities which may be dangerous when taking narcotic pain medication. Ice compresses for 20 minutes at a time four times daily for 2-3 days. Use the gel splint and crutches as instructed. Rest and elevate your injury. Clean wound daily with mild soap and water. Use an antibiotic ointment for 3-4 days, then let wound dry. Suture removal in 12-14 days. Continue current medications. Return to the ER immediately for any numbness, tingling, severe pain, extreme swelling in the extremity, signs of infection (increasing redness, swelling, drainage). or as needed. Followup with your family doctor or orthopedic surgery if no improvement in 5-7 days. Problem Qualifiers
[2017-07-03 20:49] VITALS: BP 159/92; PULSE 91; O2SAT 96
== END 2017-07-03 20:50 | disposition home or self-care (01) ==
LOC: C.EDB 19:06 → C.EDD 20:50
DX: S93.402A Sprain of unspecified ligament of left ankle, initial encounter (principal); S91.012A Laceration without foreign body, left ankle, initial encounter; X50.9XXA Other and unspecified overexertion or strenuous movements or postures, initial encounter; F41.9 Anxiety disorder, unspecified; F32.9 Major depressive disorder, single episode, unspecified; J44.9 Chronic obstructive pulmonary disease, unspecified; E66.9 Obesity, unspecified; I26.99 Other pulmonary embolism without acute cor pulmonale

== ENCOUNTER 2017-07-16 10:42 | Emergency (ER) | payer OTHER ==
[~2017-07-16] VITALS: Ht 182.9 cm; Wt 137.1 kg
[~2017-07-16 10:42] MED LIST changes: -ATV1 PO; -DOCU-94 PO; -DULO60CA44 PO; -FINA5TAB4 PO; -GABA1CAP4 PO; -HYDR50CA2 PO; -LEVO1TAB35 PO; +MORP-157 PO; -MORP1TAB11 PO; -NAPR500T3 PO; -OMEP20CA9 PO; -ONDA4TAB9 PO; -OXY/15 PO; -PRED20TA2 PO; -SRQ25 PO; -SUMA1INJ5 INJ; -SYN25 PO; -TAMS0.4C38 PO; -TOPI200T20 PO; -TRAZ1TAB5 PO; -VNTHFA/IN INH; -ZNF/4 PO
[2017-07-16 10:46] VITALS: TEMP 37; Ht 182.9 cm; Wt 137.1 kg
[2017-07-16 11:39] VITALS: BP 132/79; PULSE 89; O2SAT 97
--- NOTE | 2017-07-16 14:55 | EMERGENCY ROOM VISIT NOTE ---
History First contact with patient: 11:05 Chief Complaint: SUTURE/STAPLE REMOVAL Stated Complaint: NEEDS STITCHES OUT AND CHECKED FOR INFECTION History of Present Illness The patient is a 46 year old male who presents to the Emergency Room with complaints of redness about a laceration of his left lateral ankle. The patient was here 13 days ago and received a single suture repair of a small flap laceration. The patient reports that he has been continuing to wear his ankle brace which may be irritating the wound. He denies any increasing redness about the site, and rates his discomfort a 6 out of 10. Review of Systems 6 system review was performed and was negative except for pertinent positives and negatives as indicated in history of present illness Past Medical/Surgical History Medical Problems: (1) Anxiety (2) Anxiety and depression (3) BPH (benign prostatic hypertrophy) (4) Chronic pain syndrome (5) Community acquired bacterial pneumonia (6) COPD, moderate (7) Diabetes (8) Drug ingestion (9) Ingestion of substance (10) Narcotic dependence (11) Obesity (12) Personality disorder (13) Positive blood culture (14) Pulmonary embolism (15) Suicidal ideation (16) Urinary retention Surgical Problems: (1) History of back surgery Family History Cancer Diabetes mellitus Heart disease Kidney disease Kidney stones Lung disease Social History Smoking Status: Current Every Day Smoker Alcohol Use: none Drug Use: none Marital Status: in relationship Housing Status: lives with family, longterm Occupation Status: disabled Current/Historical Medications Scheduled Duloxetine Hcl (Cymbalta), 120 MG PO DAILY Finasteride (Proscar), 5 MG PO DAILY Gabapentin (Gabapentin), 300 MG PO TID Hydroxyzine Pamoate (Vistaril), 50 MG PO BID Levothyroxine Sodium (Levothyroxine Sodium), 25 MCG PO DAILY Lorazepam (Lorazepam), 1 MG PO BID Morphine Cont Rel (Ms Contin), 15 MG PO Q12 Naproxen (Naproxen), 500 MG PO BID Oxycodone Hcl (Oxycodone Hcl), 1 TAB PO QID Tamsulosin Hcl (Flomax), 0.4 MG PO DAILY Topiramate (Topamax), 200 MG PO HS Trazodone Hcl (Desyrel), 100 MG PO HS Scheduled PRN Albuterol Hfa (Ventolin Hfa), 2 PUFFS INH QID PRN for SOB/Wheezing Cyclobenzaprine HCl (Cyclobenzaprine HCl), 10 MG PO BID PRN for Muscle Spasms Docusate Sodium (Colace), 100 MG PO HS PRN for Constipation Omeprazole (Prilosec), 20 MG PO DAILY PRN for GI Upset Polyethylene (Polyethylene Glycol 3350), 17 GM PO DAILY PRN for Constipation Quetiapine Fumarate (Quetiapine Fumarate), 25 MG PO BID PRN for Anxiety/ Agitation Sumatriptan Succinate (Sumatriptan Succinate), 6 MG INJ UD PRN for Migraine Physical Exam Vital Signs Date Time Temp Pulse Resp B/P (MAP) Pulse Ox O2 Delivery O2 Flow Rate FiO2 07/16/17 11:39 89 20 97 07/16/17 10:46 37.0 85 18 159/113 98 Room Air Pain Rating (0-10): 4.0 Physical Exam MUSCULOSKELETAL: Examination of the left lateral ankle shows a healed laceration with one single suture intact. There is overall generalized erythema , but certainly does not appear cellulitic. There is no purulent drainage, significant induration or fluctuance. The suture was removed without any complications. Medical Decision & Procedures ED Course Patient history and physical exam were performed. Nurse's notes were reviewed. Vital signs were reviewed, showing an elevated blood pressure of 159/113. A was removed. I explained to the patient that the appearance is that of a typical healing wound. At this point, I do not suspect an infection. I did offer a prescription for Keflex antibiotics, but the patient refused. He was encouraged to minimize irritation of the wound with his ankle brace, and in fact I recommended that he start applying weight to the foot. He may follow-up with his PCP as needed. The patient was happy with plan of care, voiced understanding of all discharge instructions, and denied any significant pain at the conclusion of my exam. Medical Decision Blood Pressure Screening Patient's blood pressure: Elevated blood pressure Impression Primary Impression: Laceration of left ankle Additional Impression: Encounter for removal of sutures Departure Information Dispostion Home / Self-Care Condition GOOD Forms HOME CARE DOCUMENTATION FORM, IMPORTANT VISIT INFORMATION Patient Instructions My [facility] Additional Instructions Continue to keep wound clean and covered with an antibiotic ointment and dressing. Try to avoid irritation of the wound with your ankle splint. Return to the emergency department or see your family doctor as needed for any progressively worsening redness, swelling, pain or drainage. Problem Qualifiers Primary Impression: Laceration of left ankle Encounter type: subsequent encounter Qualified Codes: S91.012D - Laceration without foreign body, left ankle, subsequent encounter
[2017-07-19] MEDS ORDERED: TAMS0.4C38 PO (10:33)
[2017-07-19] MEDS ORDERED: NAPR500T3 PO (11:14)
[2017-07-19] MEDS ORDERED: OXY/15 PO (13:33)
== END 2017-07-16 11:40 | disposition home or self-care (01) ==
LOC: C.EDB 10:44 → C.EDD 11:40
DX: Z48.02 Encounter for removal of sutures (principal); E11.9 Type 2 diabetes mellitus without complications; J44.9 Chronic obstructive pulmonary disease, unspecified; F41.8 Other specified anxiety disorders; F17.200 Nicotine dependence, unspecified, uncomplicated; Z86.711 Personal history of pulmonary embolism; Z86.19 Personal history of other infectious and parasitic diseases; Z98.890 Other specified postprocedural states; Z79.899 Other long term (current) drug therapy; Z80.9 Family history of malignant neoplasm, unspecified; Z83.3 Family history of diabetes mellitus; Z82.49 Family history of ischemic heart disease and other diseases of the circulatory system; Z84.1 Family history of disorders of kidney and ureter

== ENCOUNTER 2017-07-19 14:09 | Emergency (ER) | payer OTHER ==
[~2017-07-19] VITALS: Ht 182.9 cm; Wt 135.0 kg
[~2017-07-19 14:09] MED LIST changes: +NAPR500T3 PO; +OXY/15 PO; +TAMS0.4C38 PO
[2017-07-19 14:13] VITALS: TEMP 36.8; Ht 182.9 cm; Wt 135.0 kg
[2017-07-19 15:15] VITALS: O2SAT 96
[2017-07-19 15:23] LABS: POINT OF CARE TROPONIN I < 0.030 ng/ml (0-0.045)
--- NOTE | 2017-07-19 15:26 | DIAGNOSTIC IMAGING REPORT ---
CHEST ONE VIEW PORTABLE CLINICAL HISTORY: chest pain dyspnea COMPARISON STUDY: 05/09/2017 FINDINGS: Lungs are clear. Diaphragms smooth. No evidence for cardiac enlargement. IMPRESSION: No acute process. The above report was generated using voice recognition software. It may contain grammatical, syntax or spelling errors. Electronically signed by: Owen Flowers M.D. 07/19/2017 3:25 PM Dictated Date/Time: 07/19/2017 3:24 PM
--- NOTE | 2017-07-19 15:29 | DIAGNOSTIC IMAGING REPORT ---
CT SCAN OF THE BRAIN WITHOUT IV CONTRAST CLINICAL HISTORY: Left arm weakness. COMPARISON STUDY: CT of the brain dated 01/24/2017. TECHNIQUE: Unenhanced axial CT scan of the brain is performed from the vertex to the skull base. A dose lowering technique was utilized adhering to the principles of ALARA. CT DOSE: 623.48 mGy.cm FINDINGS: Brain parenchyma: The brain parenchyma is normal in appearance. There is no hemorrhage, mass effect, or evidence of acute territorial ischemia by CT criteria. [place]-white matter is preserved. No extra-axial fluid collection is seen. Ventricles, sulci, cisterns: Normal in configuration. Intracranial vasculature: The visualized intracranial vasculature at the skull base is normal in appearance. Calvarium: Unremarkable. Soft tissues: A lipoma is again seen in the right posterior parietal scalp. Sinuses and mastoids: The visualized paranasal sinuses are clear. The mastoid air cells are well pneumatized. Orbits: The bony orbits are grossly intact. IMPRESSION: There is no hemorrhage, mass effect, or evidence of acute territorial ischemia by CT criteria. Electronically signed by: Misael Lopez M.D. 07/19/2017 3:28 PM Dictated Date/Time: 07/19/2017 3:26 PM
[2017-07-19 15:32] LABS: BASO % 0.5 %; BASO ABS # 0.05 K/uL (0-0.2); COMPLETE YES; EOS % 1.2 %; HEMATOCRIT 44.8 % (42-52); IG% 0.2 %; LYMPH % 26.7 %; LYMPH ABS # 2.74 K/uL (1.2-3.4); MEAN CELL VOLUME 86.7 fL (80-100); MEAN CORPUSCULAR HEMOGLOBIN 29.4 pg (25-34); MEAN CORPUSCULAR HGB CONC 33.9 g/dl (32-36); MONO % 7.3 %; NEUT % 64.1 %; PLATELET COUNT 231 K/uL (130-400); RED BLOOD COUNT 5.17 M/uL (4.7-6.1); WHITE BLOOD COUNT 10.26 K/uL (4.8-10.8)
[2017-07-19] MEDS ORDERED: MORP1TAB11 PO (15:43)
[2017-07-19 15:50] LABS: BUN/CREATININE RATIO 7.4 (10-20); CALCIUM 9.3 mg/dl (8.5-10.1); CREATININE 1.02 mg/dl (0.60-1.40); MAGNESIUM 2.1 mg/dl (1.8-2.4)
[2017-07-19 16:00] LABS: ALB/GLOB RATIO 1.5 (0.9-2); CKMB/CK RATIO 1.6 (0-3.0); THYROID STIMULATING HORMONE 0.336 uIu/ml (0.300-4.500)
[2017-07-19] MEDS ORDERED: GABA1CAP4 PO (16:07)
[2017-07-19] MEDS ORDERED: DOCU-94 PO (16:26)
[2017-07-19] MEDS ORDERED: LIDOCAINE/EPINEPHRINE 1% 20 ML VIAL INFIL ONE (16:30)
[2017-07-19] MEDS ORDERED: OPTIRAY 320 IV PRN (16:30)
[2017-07-19] MEDS ORDERED: KETOROLAC TROMETHAMINE 30 MG/ML VIAL IV STA (16:36)
--- NOTE | 2017-07-19 16:37 | DIAGNOSTIC IMAGING REPORT ---
ABD/PELVIS IV CONTRAST ONLY CT DOSE: 2395.43 mGy.cm HISTORY: Trauma laceration to abdomen TECHNIQUE: Multiaxial CT images of the abdomen and pelvis were performed following the use of intravenous contrast. A dose lowering technique was utilized adhering to the principles of ALARA. COMPARISON STUDY: 11/04/2016 FINDINGS: Lung bases are clear. Liver is uniform throughout. Gallbladder is somewhat contracted. Pancreas is uniform. Kidneys negative for hydronephrosis. The enhance uniformly. The adrenal glands are unremarkable. Proximally 6 cm right lateral to the umbilicus is what appears be a linear stab wound. There are pockets of air within the laceration tract. Small amount of infiltrative change of the subcutaneous fat is present. Laceration extends to the anterior abdominal wall with the cervical slight involvement of the superficial bundles of the right rectus muscle. A small intramuscular hematoma is possible given the mild asymmetry compared to the left rectus musculature. There is no significant hematoma abscess or collection. There is no evidence for intra-abdominal involvement. Bowel pattern is nonobstructive. There is no evidence for free air or abscess or obstructive change. There is no significant free fluid within the pelvic cul-de-sac. Bladder is midline. There is slight rectal circumferential wall thickening. Osseous structures show mild degenerative change but are considered intact. IMPRESSION: 1. Linear soft tissue laceration lateral to the umbilicus on the right. 2. This appears to involve the subcutaneous fat primarily, and to a very limited extent the anterior margin or superficial margin of the right rectus musculature. No evidence for involvement of the mid to posterior rectus musculature 3. Possible small localized hematoma of the rectus, although no major collection abscess or foreign body is identified within the region of the tract. 4. No evidence for intra-abdominal penetration or extension the abdomen. 5.. All major abdominal and pelvic structures are unremarkable. The above report was generated using voice recognition software. It may contain grammatical, syntax or spelling errors. Electronically signed by: Owen Flowers M.D. 07/19/2017 4:35 PM Dictated Date/Time: 07/19/2017 4:29 PM
--- NOTE | 2017-07-19 16:38 | DIAGNOSTIC IMAGING REPORT ---
CT ANGIOGRAPHY OF THE CHEST, PULMONARY EMBOLUS PROTOCOL CLINICAL HISTORY: Syncope. Left-sided chest pain. COMPARISON STUDY: Chest CT May 09, 2017. TECHNIQUE: Following IV administration of 119 mL of Optiray-320, helical axial images of the chest were obtained utilizing the pulmonary embolus protocol. Maximal intensity projections and sagittal and coronal reformats were viewed on an independent 3D workstation. IV contrast was administered without complication. A dose lowering technique was utilized adhering to the principles of ALARA. FINDINGS: No pulmonary emboli are identified. The size of the heart is normal. There is no evidence for thoracic aortic dissection. There is no pericardial effusion or thoracic lymphadenopathy. There is mild bronchial wall thickening. Linear right middle lobe and right lower lobe opacities are suggestive of atelectasis. There is no consolidation to suggest pneumonia. No pneumothorax or pleural effusion is present. There is no acute rib or thoracic spine fracture. The abdomen and pelvis will be reported separately. IMPRESSION: 1. No pulmonary emboli identified. 2. No acute intrathoracic findings. Electronically signed by: Evelio Corbin M.D. 07/19/2017 4:37 PM Dictated Date/Time: 07/19/2017 4:29 PM
[2017-07-19] MEDS ORDERED: DIPHTHERIA/TETANUS/PERTUSSIS 0.5 ML SYR/VIAL IM. ONE (16:45)
[2017-07-19 16:58] VITALS: PULSE 63; O2SAT 99
[2017-07-19 17:00] VITALS: BP 150/109
--- NOTE | 2017-07-19 17:02 | EMERGENCY ROOM VISIT NOTE ---
ED Visit Note First contact with patient: 16:36 This Patient was discussed with the physician Molder Apprentice, Lin Martinez PA-C. The pertinent historical and physical exam findings were confirmed. I agree with the studies ordered and with the interpretations of these studies. I agree with the disposition and care plan.
[2017-07-19] MEDS ORDERED: HYDR50CA2 PO (17:06)
[2017-07-19] MEDS ORDERED: TOPI200T20 PO (17:06)
[2017-07-19] MEDS ORDERED: FINA5TAB4 PO (17:06)
[2017-07-19] MEDS ORDERED: SRQ25 PO (17:06)
[2017-07-19] MEDS ORDERED: TRAZ-120 PO (17:06)
[2017-07-19] MEDS ORDERED: ATV1 PO (17:06)
[2017-07-19] MEDS ORDERED: OMEP20CA9 PO (17:09)
[2017-07-19] MEDS ORDERED: LORAZEPAM 1 MG TAB SL STA (17:43)
[2017-07-19] MEDS ORDERED: SUMA1INJ5 IM (17:56)
--- NOTE | 2017-07-19 17:57 | EMERGENCY ROOM VISIT NOTE ---
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 The patient states that he was making a sandwich and passed out, falling onto a knife he had been holding. He reports there is a laceration to the lower abdomen. He does not remember the syncopal episode. He has had multiple syncopal episodes in the past and states he has been worked up by his primary care provider for this. He states that when he woke up, he noticed left-sided chest pain and a "weird" sensation in his left arm. He states that his left arm feels numb and more weak than usual. He reports a headache which is chronic for him. He states that he has a history of angina but no other cardiac history and does not take any medications for this. He has had a stress test in the past year which was negative. The patient denies any shortness of breath or palpitations. He rates his discomfort a 5/10. He states he has a history of TIA. His tetanus is not up-to-date. Review of Systems A complete 10 point review of systems was reviewed with the patient with pertinent positives and negatives as per history of present illness. All else were negative. Past Medical/Surgical History Medical Problems: (1) Anxiety (2) Anxiety and depression (3) BPH (benign prostatic hypertrophy) (4) Chronic pain syndrome (5) Community acquired bacterial pneumonia (6) COPD, moderate (7) Diabetes (8) Drug ingestion (9) Ingestion of substance (10) Narcotic dependence (11) Obesity (12) Personality disorder (13) Positive blood culture (14) Pulmonary embolism (15) Suicidal ideation (16) Urinary retention Surgical Problems: (1) History of back surgery Family History Cancer Diabetes mellitus Heart disease Kidney disease Kidney stones Lung disease Social History Smoking Status: Current Every Day Smoker Alcohol Use: none Drug Use: none Marital Status: in relationship Housing Status: lives with family, us[employer] Occupation Status: disabled Current/Historical Medications Scheduled Cephalexin Monohydrate (Keflex), 500 MG PO QID Duloxetine Hcl (Cymbalta), 120 MG PO DAILY Finasteride (Proscar), 5 MG PO DAILY Gabapentin (Gabapentin), 300 MG PO TID Hydroxyzine Pamoate (Vistaril), 50 MG PO BID Levothyroxine Sodium (Levothyroxine Sodium), 25 MCG PO DAILY Lorazepam (Lorazepam), 1 MG PO BID Morphine Sulfate (Morphine Sulfate Er), 15 MG PO Q12 Naproxen (Naproxen), 500 MG PO BID Oxycodone Hcl (Oxycodone Hcl), 15 MG PO QID Tamsulosin Hcl (Flomax), 0.4 MG PO DAILY Topiramate (Topamax), 200 MG PO HS Trazodone Hcl (Desyrel), 100 MG PO HS Scheduled PRN Albuterol Hfa (Ventolin Hfa), 2 PUFFS INH QID PRN for SOB/Wheezing Cyclobenzaprine HCl (Cyclobenzaprine HCl), 10 MG PO BID PRN for Muscle Spasm Docusate Sodium (Colace), 100 MG PO HS PRN for Constipation Omeprazole (Prilosec), 20 MG PO DAILY PRN for GI Upset Polyethylene (Polyethylene Glycol 3350), 17 GM PO DAILY PRN for Constipation Quetiapine Fumarate (Quetiapine Fumarate), 25 MG PO BID PRN for Anxiety/ Agitation Sumatriptan Succinate (Sumatriptan Succinate), 6 MG IM UD PRN for Migraine Physical Exam Vital Signs Date Time Temp Pulse Resp B/P (MAP) Pulse Ox O2 Delivery O2 Flow Rate FiO2 07/19/17 17:00 128/84 143/87 150/109 07/19/17 16:58 63 18 140/90 99 Room Air 07/19/17 15:15 96 Room Air 07/19/17 14:35 64 07/19/17 14:13 36.8 69 18 139/83 98 Room Air Physical Exam VITALS: Vitals are noted on the nurse's note and reviewed by myself. Vital signs stable. GENERAL: This is a 47-year-old male, in no acute distress, nondiaphoretic, well- developed well-nourished. SKIN: There is a 3 cm laceration to the right lower abdomen with no active bleeding. This appears superficial on exam. HEAD: Normocephalic atraumatic. EARS: External auditory canals clear, tympanic membranes pearly donald without erythema or effusion bilaterally. No hemotympanum. EYES: Pupils equal round and reactive to light and accommodation. Conjunctivae without injection, sclerae without icterus. Extraocular movements intact. MOUTH: Mucous membranes moist. NECK: Supple without nuchal rigidity. Cervical spine is nontender. HEART: Regular rate and rhythm without murmurs gallops or rubs. LUNGS: Clear to auscultation bilaterally without wheezes, rales or rhonchi. No retractions or accessory muscle use. ABDOMEN: Positive bowel sounds x 4. There is mild tenderness over the area of the laceration. Otherwise no tenderness to palpation. MUSCULOSKELETAL: No muscle atrophy, erythema, or edema noted. Full range of motion in all extremities. Strength 5/5 throughout. NEURO: Patient was alert and oriented to person place and time. Normal sensation to light and sharp touch. Deep tendon reflexes 2+ throughout. No focal neurological deficits. Medical Decision & Procedures ER Provider Diagnostic Interpretation: CHEST ONE VIEW PORTABLE FINDINGS: Lungs are clear. Diaphragms smooth. No evidence for cardiac enlargement. IMPRESSION: No acute process. CT SCAN OF THE BRAIN WITHOUT IV CONTRAST IMPRESSION: There is no hemorrhage, mass effect, or evidence of acute territorial ischemia by CT criteria. CT ANGIOGRAPHY OF THE CHEST, PULMONARY EMBOLUS PROTOCOL FINDINGS: No pulmonary emboli are identified. The size of the heart is normal. There is no evidence for thoracic aortic dissection. There is no pericardial effusion or thoracic lymphadenopathy. There is mild bronchial wall thickening. Linear right middle lobe and right lower lobe opacities are suggestive of atelectasis. There is no consolidation to suggest pneumonia. No pneumothorax or pleural effusion is present. There is no acute rib or thoracic spine fracture. The abdomen and pelvis will be reported separately. IMPRESSION: 1. No pulmonary emboli identified. 2. No acute intrathoracic findings. ABD/PELVIS IV CONTRAST ONLY FINDINGS: Lung bases are clear. Liver is uniform throughout. Gallbladder is somewhat contracted. Pancreas is uniform. Kidneys negative for hydronephrosis. The enhance uniformly. The adrenal glands are unremarkable. Proximally 6 cm right lateral to the umbilicus is what appears be a linear stab wound. There are pockets of air within the laceration tract. Small amount of infiltrative change of the subcutaneous fat is present. Laceration extends to the anterior abdominal wall with the cervical slight involvement of the superficial bundles of the right rectus muscle. A small intramuscular hematoma is possible given the mild asymmetry compared to the left rectus musculature. There is no significant hematoma abscess or collection. There is no evidence for intra-abdominal involvement. Bowel pattern is nonobstructive. There is no evidence for free air or abscess or obstructive change. There is no significant free fluid within the pelvic cul-de-sac. Bladder is midline. There is slight rectal circumferential wall thickening. Osseous structures show mild degenerative change but are considered intact. IMPRESSION: 1. Linear soft tissue laceration lateral to the umbilicus on the right. 2. This appears to involve the subcutaneous fat primarily, and to a very limited extent the anterior margin or superficial margin of the right rectus musculature. No evidence for involvement of the mid to posterior rectus musculature 3. Possible small localized hematoma of the rectus, although no major collection abscess or foreign body is identified within the region of the tract. 4. No evidence for intra-abdominal penetration or extension the abdomen. 5.. All major abdominal and pelvic structures are unremarkable. Laboratory Results 07/19/17 15:00 Red Blood Count 5.17, Mean Corpuscular Volume 86.7, Mean Corpuscular Hemoglobin 29.4, Mean Corpuscular Hemoglobin Concent 33.9, Mean Platelet Volume 12.0, Neutrophils (%) (Auto) 64.1, Lymphocytes (%) (Auto) 26.7, Monocytes (%) (Auto) 7.3, Eosinophils (%) (Auto) 1.2, Basophils (%) (Auto) 0.5, Neutrophils # (Auto) 6.58, Lymphocytes # (Auto) 2.74, Monocytes # (Auto) 0.75, Eosinophils # (Auto) 0.12, Basophils # (Auto) 0.05 07/19/17 15:00 Test 07/19/17 15:00 07/19/17 15:05 07/19/17 15:33 07/19/17 16:48 White Blood Count 10.26 K/uL (4.8-10.8) Red Blood Count 5.17 M/uL (4.7-6.1) Hemoglobin 15.2 g/dL (14.0-18.0) Hematocrit 44.8 % (42-52) Mean Corpuscular Volume 86.7 fL (80-100) Mean Corpuscular Hemoglobin 29.4 pg (25-34) Mean Corpuscular Hemoglobin Concent 33.9 g/dl (32-36) Platelet Count 231 K/uL (130-400) Mean Platelet Volume 12.0 fL (7.4-10.4) Neutrophils (%) (Auto) 64.1 % Lymphocytes (%) (Auto) 26.7 % Monocytes (%) (Auto) 7.3 % Eosinophils (%) (Auto) 1.2 % Basophils (%) (Auto) 0.5 % Neutrophils # (Auto) 6.58 K/uL (1.4-6.5) Lymphocytes # (Auto) 2.74 K/uL (1.2-3.4) Monocytes # (Auto) 0.75 K/uL (0.11-0.59) Eosinophils # (Auto) 0.12 K/uL (0-0.5) Basophils # (Auto) 0.05 K/uL (0-0.2) RDW Standard Deviation 52.0 fL (36.4-46.3) RDW Coefficient of Variation 16.3 % (11.5-14.5) Immature Granulocyte % (Auto) 0.2 % Immature Granulocyte # (Auto) 0.02 K/uL (0.00-0.02) Anion Gap 7.0 mmol/L (3-11) Est Creatinine Clear Calc Drug Dose 127.4 ml/min Estimated GFR () 101.0 Estimated GFR (Non- 87.1 BUN/Creatinine Ratio 7.4 (10-20) Calcium Level 9.3 mg/dl (8.5-10.1) Magnesium Level 2.1 mg/dl (1.8-2.4) Total Bilirubin 1.1 mg/dl (0.2-1) Aspartate Amino Transf (AST/SGOT) 8 U/L (15-37) Alanine Aminotransferase (ALT/SGPT) 17 U/L (12-78) Alkaline Phosphatase 88 U/L (45-117) Total Creatine Kinase 50 U/L (39-308) Creatine Kinase MB 0.8 ng/ml (0.5-3.6) Creatine Kinase MB Ratio 1.6 (0-3.0) Total Protein 6.9 gm/dl (6.4-8.2) Albumin 4.1 gm/dl (3.4-5.0) Globulin 2.8 gm/dl (2.5-4.0) Albumin/Globulin Ratio 1.5 (0.9-2) Thyroid Stimulating Hormone (TSH) 0.336 uIu/ml (0.300-4.500) Bedside D-Dimer 264 ng/mlFEU (0-450) Bedside Glucose 98 mg/dl (70-99) Bedside Troponin I < 0.030 ng/ml (0-0.045) Medications Administered Medications (Trade) Dose Ordered Sig/Amalia Route Start Time Stop Time Status Last Admin Dose Admin Diphtheria/ Pertussis/Tetanus Vacc (Adacel Inj) 0.5 ml ONCE ONCE IM. 07/19/17 16:45 07/19/17 16:46 DC 07/19/17 17:08 0.5 ML Ketorolac Tromethamine (Toradol Inj) 30 mg NOW STAT IV 07/19/17 16:36 07/19/17 16:38 DC 07/19/17 17:07 30 MG Lorazepam (Ativan Tab) 1 mg NOW STAT SL 07/19/17 17:43 07/19/17 17:45 DC 07/19/17 17:59 1 MG Cephalexin Monohydrate (Keflex 500MG Home Pack) 1 homepack NOW ONCE PO 07/19/17 18:00 07/19/17 18:01 DC 07/19/17 18:06 1 HOMEPACK Procedure Verbal consent was obtained to perform the procedure. Using sterile technique the wound was cleaned with Betadine. The area was sterilely draped. 4 ml of 1 % buffered lidocaine with epinephrine was used to anesthetize the abdominal laceration. Once the patient was anesthetized, the wound was copiously irrigated under pressure with sterile saline. The wound was explored. The laceration was repaired using 4 simple interrupted 4-0 nylon sutures with the wound edges being well approximated. The patient tolerated the procedure well. Hemostasis was achieved. The area was cleaned with sterile saline and dressed with bacitracin ointment and bandage. ECG Indication: syncope Rate (beats per minute): 63 Rhythm: normal sinus Findings: no acute ischemic change, no ectopy Change: no significant change ED Course The patient was evaluated as above. Labs were drawn and IV access was obtained. Multiple imaging studies were performed and read by radiology as above. Patient was reevaluated and laceration repair was performed at this time. Patient was given Toradol for pain. His Adacel was updated. Discharge instructions were reviewed with the patient. The patient verbalized understanding of my assessment and treatment plan and was discharged home in good condition. Medical Decision Differential diagnosis includes cardiac syncope, CVA, TIA, vasovagal syncope, hypoglycemia, infection, among others. The patient is a 47-year-old male who presents today complaining of a syncopal episode. The patient also complains of left-sided chest and arm pain. Troponin 2 was negative. CTA of the chest showed no evidence of PE. Labs were unremarkable. Orthostatic vital signs are negative. Patient's pain may be musculoskeletal. He has had a stress test in the past one year and I do not feel that further inpatient cardiac workup is warranted at this time. Patient has had multiple syncopal episodes in the past and has seen his PCP for this. CT of the abdomen and pelvis was performed due to the laceration and this does show that the laceration extends into the superficial margin of the rectus muscle. Fortunately there is no intra-abdominal extension. Patient will be placed on antibiotics to prevent any infection. He was encouraged to call his primary care provider to schedule follow-up within 48 hours. The patient was independently evaluated by Dr. Dyer, ED attending physician, who agreed with my assessment and treatment plan. Based on the patient's presentation and work up, I feel the patient is stable for outpatient treatment. The patient was educated to return to the emergency department for any worsening of their current condition or new/concerning symptoms. He will follow up with his PCP. Medication Reconcilliation Current Medication List: was personally reviewed by me Blood Pressure Screening Patient's blood pressure: Normal blood pressure Impression Primary Impression: Syncope Additional Impression: Laceration of abdomen Departure Information Dispostion Home / Self-Care Condition GOOD Prescriptions Cephalexin Monohydrate (Keflex) 500 Mg Cap 500 MG PO QID for 7 Days, #28 CAP Prov: Lin Martinez ., NUBIA 07/19/17 Referrals Tesha Loredo M.D. (MEDICAL) (PCP) Patient Instructions My [facility] new test company [facility] Additional Instructions You have received 4 sutures on your abdomen. These sutures are NOT dissolvable and WILL need to be removed by a health care provider in 10-12 days. You can return to the Emergency Department or contact your Primary Care Provider to have the sutures removed. Keflex as prescribed to prevent infection. Proper wound care is essential for adequate wound healing and infection prevention. You can shower and clean the wound with soap and water. Do not scour over the wound, pat dry with a towel. Do not submerse the wound (i.e. bathe or dish wash) until the sutures have been removed. You can use an antibiotic ointment with a dressing over the wound for the next 3-4 days. After this time you may leave the wound dry and open to the air. If crust develops over the wound you can use a Q-tip to apply a 1:1 peroxide:water solution to clean the wound. Look for signs of infection of the wound including: increased pain, swelling, foul discharge, streaking, or increased temperature. If any of these are noticed you should return to the Emergency Department for further assessment and treatment. As with any laceration you may have received nerve damage to the surrounding tissues. This damage may or may not be permanent. You should keep the area covered with sunscreen for the first 6 months to 1 year when at risk for exposure to help minimize scarring. You can also use scar reducing creams or Vitamin E oil to help minimize scarring. For pain control, you can use the following [id number] medicines (if >12 yo): - Regular strength (325mg/tab) Tylenol (acetaminophen) 2 tabs every 4-6 hours as needed. Do not exceed 12 tablets in a 24 hour period. Avoid taking more than 4 grams (4000 mg) of Tylenol per day. This includes any other sources of acetaminophen you may take on a regular basis. - Regular strength (200 mg/tab) Advil (ibuprofen) 1-2 tabs every 4-6 hours as needed. Do not exceed a dose of [address] mg [address] Loredo first thing in the morning to schedule a follow-up appointment regarding today's visit. Rest and stay well hydrated. Return to the emergency department if your symptoms worsen despite treatment course outlined above. Problem Qualifiers Primary Impression: Syncope
[2017-07-19] MEDS ORDERED: CEPH500C PO (18:00)
[2017-07-19] MEDS ORDERED: CEPHALEXIN 500MG HOME PACK 1 EA BTL PO ONE (18:00)
[2017-07-19] MEDS ORDERED: DULO60CA44 PO (18:15)
[2017-07-19] MEDS ORDERED: VNTHFA/IN INH (18:15)
[2017-07-19] MEDS ORDERED: CYCL10TA7 PO (19:48)
[2017-07-19] MEDS ORDERED: LEVO25TA5 PO (19:48)
[2017-07-19] MEDS ORDERED: MRLP527 PO (19:55)
== END 2017-07-19 18:14 | disposition home or self-care (01) ==
LOC: C.EDB 14:12 → C.EDA 18:14
DX: R55 Syncope and collapse (principal); S31.619A Laceration without foreign body of abdominal wall, unspecified quadrant with penetration into peritoneal cavity, initial encounter; W26.0XXA Contact with knife, initial encounter; F41.9 Anxiety disorder, unspecified; N40.0 Benign prostatic hyperplasia without lower urinary tract symptoms; F32.9 Major depressive disorder, single episode, unspecified; J44.9 Chronic obstructive pulmonary disease, unspecified; E11.9 Type 2 diabetes mellitus without complications; E66.9 Obesity, unspecified; F60.9 Personality disorder, unspecified; Z83.3 Family history of diabetes mellitus; Z82.49 Family history of ischemic heart disease and other diseases of the circulatory system; F17.200 Nicotine dependence, unspecified, uncomplicated

== ENCOUNTER 2017-08-16 14:17 | Emergency (ER) | payer OTHER ==
[~2017-08-16] VITALS: Ht 182.9 cm; Wt 141.5 kg
[~2017-08-16 14:17] MED LIST changes: +ATV1 PO; +CYCL10TA7 PO; +DOCU-94 PO; +DULO60CA44 PO; +FINA5TAB4 PO; +GABA1CAP4 PO; +HYDR50CA2 PO; +LEVO25TA5 PO; -MORP-157 PO; +MORP1TAB11 PO; +MRLP527 PO; +OMEP20CA9 PO; +SRQ25 PO; +SUMA1INJ5 IM; +TOPI200T20 PO; +TRAZ-120 PO; +VNTHFA/IN INH
[2017-08-16 14:29] VITALS: Ht 182.9 cm; Wt 141.5 kg
[2017-08-16] MEDS ORDERED: METHYLPREDNISOLONE 125 MG VIAL IV STA (14:35)
[2017-08-16] MEDS ORDERED: CHARCOAL, ACTIVATED LIQ 25 GM/120 ML TUBE PO STA (14:35)
--- NOTE | 2017-08-16 14:40 | EMERGENCY ROOM VISIT NOTE ---
History Report prepared by Alek: Marcella Julian Under the Supervision of: Dr. Nader Loomis M.D. 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 The patient states that he was seen recently for pneumonia and a TIA. He reports that he felt like he had another TIA recently and was seen here. He notes that today he still has leg numbness, arm numbness, shortness of breath, and chest pain. The patient states that today he took 120 pills of 81mg Aspirin and 40 Naproxen that were 500mg. He reports that his health is declining and he does not want to be alive anymore. The patient notes that he is a smoker. 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 A total of ten systems were reviewed and were otherwise negative. Past Medical & Surgical Medical Problems: (1) Anxiety (2) Anxiety and depression (3) BPH (benign prostatic hypertrophy) (4) Chronic pain syndrome (5) Community acquired bacterial pneumonia (6) COPD, moderate (7) Diabetes (8) Drug ingestion (9) Ingestion of substance (10) Narcotic dependence (11) Obesity (12) Personality disorder (13) Positive blood culture (14) Pulmonary embolism (15) Suicidal ideation (16) Urinary retention Surgical Problems: (1) History of back surgery Family History Cancer Diabetes mellitus Heart disease Kidney disease Kidney stones Lung disease Social History Smoking Status: Current Every Day Smoker Alcohol Use: none Drug Use: none Marital Status: in relationship Housing Status: lives with family, senior care Occupation Status: disabled Current/Historical Medications Scheduled Aspirin (Aspirin Ec), 81 MG PO DAILY Ergocalciferol (Vitamin D 66703 Unit), 50,000 UNIT PO WK Gabapentin (Gabapentin), 300 MG PO TID Lorazepam (Lorazepam), 1 MG PO BID Morphine Cont Rel (Ms Contin), 15 MG PO BID Naproxen (Naproxen), 500 MG PO BID Oxycodone HCl (Oxycontin), 15 MG PO QID Potassium Chloride (Micro-K Ext Rel), 20 MEQ PO DAILY Scheduled PRN Albuterol Hfa (Ventolin Hfa), 2 PUFFS INH QID PRN for SOB/Wheezing Cyclobenzaprine HCl (Cyclobenzaprine HCl), 10 MG PO BID PRN for Muscle Spasm Allergies Coded Allergies: Acetaminophen (Unverified Allergy, Intermediate, "THEY TOLD ME I GET KIDNEY DISEASE", 08/16/17) Fentanyl (Verified Allergy, Intermediate, RASH/HIVES/SKIN REDNESS, 05/09/17 ) FROM PATCH ONLY Valproic Acid (Verified Adverse Reaction, Intermediate, PANCREATITIS, ) Valproic Acid and Related (Verified Adverse Reaction, Intermediate, PANCREATITS, 08/16/17) Physical Exam Vital Signs Date Time Temp Pulse Resp B/P (MAP) Pulse Ox O2 Delivery O2 Flow Rate FiO2 08/16/17 22:34 92 08/16/17 20:52 87 20 129/83 93 Room Air 08/16/17 19:23 83 20 115/87 96 Room Air 08/16/17 18:33 87 08/16/17 18:23 88 18 121/84 93 Room Air 08/16/17 16:15 83 18 121/93 97 Room Air 08/16/17 14:30 87 08/16/17 14:29 36.9 93 16 118/80 90 Room Air Physical Exam GENERAL: Awake, alert, well-appearing, NAD HENT: Normocephalic, atraumatic. EYES: Normal conjunctiva. Sclera non-icteric. NECK: Supple. No nuchal rigidity. FROM. RESPIRATORY: Diffuse wheezing throughout, no rhonchi, crackles CARDIAC: RRR, no MRG ABDOMEN: Soft, NTND, BS+ MSK: No chest wall TTP, no LE edema. Decreased claim service representative strength and decreased LUE strength with flexion and extension. NEURO: GCS 15, CN 2-12 intact, moves all 4s on command. Complains of decreased sensation to upper and lower extremities. SKIN: No rash or jaundice noted. Medical Decision & Procedures ER Provider Diagnostic Interpretation: Radiology results as stated below per my review and radiologist interpretation: HEAD WITHOUT CONTRAST (CT) FINDINGS: Library Serials Assistant topogram: Unremarkable. Ventricles and sulci normal in size. Brain parenchyma normal in appearance with preserved donald-white differentiation. No mass effect or midline shift. No hemorrhage or acute territorial infarct. No extra-axial fluid collection. Minimal polypoid mucosal thickening in the right maxillary sinus. Calvarium intact. Incidental note made of a subcutaneous lipoma over the right occiput. IMPRESSION: 1. No acute intracranial abnormality. Electronically signed by: Joey Merida M.D. 08/16/2017 4:18 PM Dictated Date/Time: 08/16/2017 4:15 PM SINGLE VIEW CHEST FINDINGS: An AP, portable, upright chest radiograph is compared to chest x-ray and chest CT dated 07/19/2017. The examination is degraded by portable technique, large body habitus, and apical lordotic positioning. The cardiomediastinal silhouette is unremarkable. Linear atelectasis versus scarring is present at the lung bases. No airspace consolidation is seen typical for pneumonia and there is no large pleural effusion. No pneumothorax is seen. The bony thorax is grossly intact. IMPRESSION: No acute cardiopulmonary abnormality. Electronically signed by: Misael Lopez M.D. 08/16/2017 2:59 PM Dictated Date/Time: 08/16/2017 2:58 PM Laboratory Results 08/16/17 15:20 Red Blood Count 4.72, Mean Corpuscular Volume 89.6, Mean Corpuscular Hemoglobin 29.2, Mean Corpuscular Hemoglobin Concent 32.6, Mean Platelet Volume 11.5, Neutrophils (%) (Auto) 53.2, Lymphocytes (%) (Auto) 30.1, Monocytes (%) (Auto) 9.5, Eosinophils (%) (Auto) 5.8, Basophils (%) (Auto) 0.9, Neutrophils # (Auto) 4.61, Lymphocytes # (Auto) 2.61, Monocytes # (Auto) 0.82, Eosinophils # (Auto) 0.50, Basophils # (Auto) 0.08 08/16/17 15:20 Test 08/16/17 15:20 08/16/17 17:50 08/16/17 19:25 White Blood Count 8.66 K/uL (4.8-10.8) Red Blood Count 4.72 M/uL (4.7-6.1) Hemoglobin 13.8 g/dL (14.0-18.0) Hematocrit 42.3 % (42-52) Mean Corpuscular Volume 89.6 fL (80-100) Mean Corpuscular Hemoglobin 29.2 pg (25-34) Mean Corpuscular Hemoglobin Concent 32.6 g/dl (32-36) Platelet Count 187 K/uL (130-400) Mean Platelet Volume 11.5 fL (7.4-10.4) Neutrophils (%) (Auto) 53.2 % Lymphocytes (%) (Auto) 30.1 % Monocytes (%) (Auto) 9.5 % Eosinophils (%) (Auto) 5.8 % Basophils (%) (Auto) 0.9 % Neutrophils # (Auto) 4.61 K/uL (1.4-6.5) Lymphocytes # (Auto) 2.61 K/uL (1.2-3.4) Monocytes # (Auto) 0.82 K/uL (0.11-0.59) Eosinophils # (Auto) 0.50 K/uL (0-0.5) Basophils # (Auto) 0.08 K/uL (0-0.2) RDW Standard Deviation 50.8 fL (36.4-46.3) RDW Coefficient of Variation 15.3 % (11.5-14.5) Immature Granulocyte % (Auto) 0.5 % Immature Granulocyte # (Auto) 0.04 K/uL (0.00-0.02) Venous Blood pH 7.36 (7.36-7.41) Venous Blood Partial Pressure CO2 48 mmHg (38.0-50.0) Venous Blood Partial Pressure O2 58 mmHg Venous Blood HCO3 27 mmol/L Venous Blood Oxygen Saturation 88.4 % Venous Blood Base Excess 0.9 mEq/L Anion Gap 5.0 mmol/L (3-11) Est Creatinine Clear Calc Drug Dose 122.3 ml/min Estimated GFR () 93.2 Estimated GFR (Non- 80.4 BUN/Creatinine Ratio 15.1 (10-20) Lactic Acid Level 1.2 mmol/L (0.4-2.0) Calcium Level 8.5 mg/dl (8.5-10.1) Total Bilirubin 1.4 mg/dl (0.2-1) Direct Bilirubin < 0.1 mg/dl (0-0.2) Aspartate Amino Transf (AST/SGOT) 15 U/L (15-37) Alanine Aminotransferase (ALT/SGPT) 17 U/L (12-78) Alkaline Phosphatase 90 U/L (45-117) Total Protein 6.4 gm/dl (6.4-8.2) Albumin 3.8 gm/dl (3.4-5.0) Thyroid Stimulating Hormone (TSH) 0.798 uIu/ml (0.300-4.500) Acetaminophen Level < 2 ug/ml (10-30) Ethyl Alcohol mg/dL < 3.0 mg/dl (0-3) Salicylates Level 4.8 mg/dl (2.8-20) Urine Color YELLOW Urine Appearance CLEAR (CLEAR) Urine pH 5.0 (4.5-7.5) Urine Specific [place] 1.013 (1.000-1.030) Urine Protein NEG (NEG) Urine Glucose (UA) NEG (NEG) Urine Ketones NEG (NEG) Urine Occult Blood NEG (NEG) Urine Nitrite NEG (NEG) Urine Bilirubin NEG (NEG) Urine Urobilinogen NEG (NEG) Urine Leukocyte Esterase NEG (NEG) Urine Opiates Screen POS (NEG) Urine Methadone, Qualitative NEG (NEG) Urine Barbiturates NEG (NEG) Urine Phencyclidine (PCP) Level NEG (NEG) Ur Amphetamine/Methamphetamine NEG (NEG) MDMA (Ecstasy) Screen NEG (NEG) Urine Benzodiazepines Screen NEG (NEG) Urine Cocaine Metabolite NEG (NEG) Urine Marijuana (THC) NEG (NEG) Laboratory results reviewed by me Medications Administered Medications (Trade) Dose Ordered Sig/[place] Route Start Time Stop Time Status Last Admin Dose Admin Methylprednisolone Sodium Succinate (Solu-Medrol IV) 125 mg NOW STAT IV 08/16/17 14:35 08/16/17 14:40 DC 08/16/17 16:33 125 MG Azithromycin 500 mg/Dextrose 255 ml @ 125 mls/hr ONE ONCE IV 08/16/17 14:45 08/16/17 16:47 DC 08/16/17 16:34 125 MLS/HR Albuterol/ Ipratropium (Duoneb) 3 ml ONE STAT INH 08/16/17 15:56 08/16/17 15:58 DC 08/16/17 16:33 3 ML ECG Indication: toxicologic Rate (beats per minute): 88 Rhythm: normal sinus Findings: no ectopy, other (normal intervals, normal axis) ED Course 1421: The patient was evaluated in room C9. A complete history and physical exam was performed. 1446: I spoke to poison control and they recommend to check levels and if aspirin >30 give D5W with 3amps bicarb and 30meq KCl at 250cc an hour. 2229: I reevaluated and updated the patient. 2229: The patient was signed out to Dr. Box at change of shift. Medical Decision Differential diagnosis: Etiologies such as mood disorder, infection, hypoglycemia, electrolyte abnormalities, cardiac sources, intracerebral event, toxicologic, neurologic, as well as others were entertained. Patient was seen and evaluated the bedside. Patient does have a history of psych issues. Patient states that he took 9.7 g of aspirin and approximately 20 g of naproxen less than 1 hour ago. Patient is also concerned as he feels like he has chest pains the nasion some left-sided weakness and numbness. This is been ongoing for some time. Patient been seen several times for possible TIAs. Patient does have some decreased claim service representative strength in his left upper extremity and weakness there. He is well outside the window for any sort of TPA. Ct brain non con ordered. I did talk to poison control recommended that if his salicylate level rises above 30 he should be given D5W with 3 A of bicarbonate and 30 meqs of KCl at 2 50 mL per hour. Patient did have blood work that was completed. Patient did have diffuse wheezing and thus was given steroids and as a through. He also did have chest x-ray and EKG. Patient's vital signs are currently stable. Patient's blood work was fairly unremarkable. Patient had a normal white blood cell count. Patient kidney function normal. Patient bicarbonate was normal patient did not have a respiratory alkalosis. Patient's salicylate levels were normal patient did have undetectable Tylenol as well as F ethanol levels. I did speak with the poison center again and stated that we will be drawing a repeat salicylate level about our 5 hours post ingestion. Patient did not receive any activated charcoal. Patient's chest x-ray is clear. Patient CT of the brain is also negative. I did speak with psych who will evaluate the patient once the patient is medically clear which will be after the salicylate level if it is normal. I did look at the controlled substance database and the patient had been receiving a fair amount of oxycodone and Ativan and morphine ER last month. Furthermore, he has had many controlled substance prescriptions event him within the last year. I discussed this with the mental health specialist who were going to reevaluate the patient. I did sign out the patient to the late physician. Patient's salicylate level at 5 hours post ingestion was normal. Patient was cleared from a medical perspective. I do believe that given the patient's history a fabrication and his multiple recent visits for possible TIAs that this is unlikely to be a worsening of symptoms. Patient is started taking an aspirin. Patient was seen and evaluated by the mental health specialist. Medication Reconcilliation Current Medication List: was personally reviewed by me Blood Pressure Screening Patient's blood pressure: Normal blood pressure Blood pressure disposition: Did not require urgent referral Consults Time Called: 1445 Consulting Physician: Poison Control Returned Call: [phone]: I spoke to poison control and they recommend to check levels and if aspirin >30 give D5W with 3amps bicarb and 30meq KCl at 250cc an hour. Impression Primary Impression: Overdose Additional Impression: Left arm weakness Scribe Attestation The scribe's documentation has been prepared under my direction and personally reviewed by me in its entirety. I confirm that the note above accurately reflects all work, treatment, procedures, and medical decision making performed by me. Departure Information Dispostion Still a Patient Referrals Tesha Loredo M.D. (MEDICAL) (PCP) Patient Instructions My [facility] Problem Qualifiers Primary Impression: Overdose Encounter type: initial encounter Injury intent: intentional self-harm Qualified Codes: T50.902A - Poisoning by unspecified drugs, medicaments and biological substances, intentional self-harm, initial encounter
[2017-08-16] MEDS ORDERED: AZITHROMYCIN IV 500 MG in DEXTROSE 5% 250ML 250 ML IV ONE (14:45)
[2017-08-16] MEDS ORDERED: MORP-157 PO (14:53)
[2017-08-16] MEDS ORDERED: OXYSR15 PO (14:53)
[2017-08-16] MEDS ORDERED: POTA10CA28 PO (14:53)
[2017-08-16] MEDS ORDERED: ASPI81TA28 PO (14:53)
[2017-08-16] MEDS ORDERED: ERGO500037 PO (14:53)
--- NOTE | 2017-08-16 15:01 | DIAGNOSTIC IMAGING REPORT ---
SINGLE VIEW CHEST CLINICAL HISTORY: Mood disorder. Overdose. FINDINGS: An AP, portable, upright chest radiograph is compared to chest x-ray and chest CT dated 07/19/2017. The examination is degraded by portable technique, large body habitus, and apical lordotic positioning. The cardiomediastinal silhouette is unremarkable. Linear atelectasis versus scarring is present at the lung bases. No airspace consolidation is seen typical for pneumonia and there is no large pleural effusion. No pneumothorax is seen. The bony thorax is grossly intact. IMPRESSION: No acute cardiopulmonary abnormality. Electronically signed by: Misael Lopez M.D. 08/16/2017 2:59 PM Dictated Date/Time: 08/16/2017 2:58 PM
[2017-08-16 15:38] LABS: VEN BLD GAS O2 SATURATION 88.4 %; VEN BLOOD GAS BASE EXCESS 0.9 mEq/L
[2017-08-16 15:45] LABS: BASO % 0.9 %; BASO ABS # 0.08 K/uL (0-0.2); COMPLETE YES; EOS % 5.8 %; HEMATOCRIT 42.3 % (42-52); IG% 0.5 %; LYMPH % 30.1 %; LYMPH ABS # 2.61 K/uL (1.2-3.4); MEAN CELL VOLUME 89.6 fL (80-100); MEAN CORPUSCULAR HEMOGLOBIN 29.2 pg (25-34); MEAN CORPUSCULAR HGB CONC 32.6 g/dl (32-36); MEAN PLATELET VOLUME 11.5 fL (7.4-10.4); MONO % 9.5 %; NEUT % 53.2 %; PLATELET COUNT 187 K/uL (130-400); RED BLOOD COUNT 4.72 M/uL (4.7-6.1); WHITE BLOOD COUNT 8.66 K/uL (4.8-10.8)
[2017-08-16] MEDS ORDERED: ALBUT/IPRATROP 3MG/0.5MG NEB 3 ML VIAL INH STA (15:56)
[2017-08-16 16:01] LABS: ALT/SGPT 17 U/L (12-78); AST/SGOT 15 U/L (15-37); BLOOD UREA NITROGEN 16 mg/dl (7-18); BUN/CREATININE RATIO 15.1 (10-20); CALCIUM 8.5 mg/dl (8.5-10.1); CARBON DIOXIDE 25 mmol/L (21-32); CHLORIDE 107 mmol/L (98-107); CREATININE 1.09 mg/dl (0.60-1.40); GLUCOSE 101 mg/dl (70-99); POTASSIUM 4.7 mmol/L (3.5-5.1); SODIUM 137 mmol/L (136-145)
[2017-08-16 16:13] LABS: ALKALINE PHOSPHATASE 90 U/L (45-117); THYROID STIMULATING HORMONE 0.798 uIu/ml (0.300-4.500)
[2017-08-16 16:19] LABS: ACETAMINOPHEN < 2 ug/ml (10-30)
--- NOTE | 2017-08-16 16:20 | DIAGNOSTIC IMAGING REPORT ---
HEAD WITHOUT CONTRAST (CT) CLINICAL HISTORY: 47 years-old Male presenting with EVALUATE FOR PSYCH CLEARANCE, overdose. TECHNIQUE: Multidetector CT imaging of the head was performed without the use of intravenous contrast. IV contrast: None. A dose lowering technique was used consistent with the principles of ALARA (as low as reasonably achievable). COMPARISON: 07/19/2017. CT DOSE (mGy.cm): The estimated cumulative dose is 1200.60 mGycm. FINDINGS: Procedure Tech topogram: Unremarkable. Ventricles and sulci normal in size. Brain parenchyma normal in appearance with preserved donald-white differentiation. No mass effect or midline shift. No hemorrhage or acute territorial infarct. No extra-axial fluid collection. Minimal polypoid mucosal thickening in the right maxillary sinus. Calvarium intact. Incidental note made of a subcutaneous lipoma over the right occiput. IMPRESSION: 1. No acute intracranial abnormality. Electronically signed by: Joey Merida M.D. 08/16/2017 4:18 PM Dictated Date/Time: 08/16/2017 4:15 PM
[2017-08-16 19:36] LABS: URINE APPEARANCE CLEAR (CLEAR); URINE BILIRUBIN NEG (NEG); URINE COLOR YELLOW; URINE NITRITE NEG (NEG); URINE SPECIFIC GRAVITY 1.013 (1.000-1.030); UROBILINOGEN NEG (NEG)
[2017-08-16 19:38] LABS: MANUAL MICROSCOPIC REQUIRED? NO; REVIEW REQ? NO
[2017-08-16 19:56] LABS: BENZODIAZEPINE, URINE NEG (NEG); COCAINE,URINE NEG (NEG); PHENCYCLIDINE, URINE NEG (NEG)
[2017-08-17] MEDS ORDERED: GABAPENTIN 600 MG TAB PO STA (00:29)
[2017-08-17] MEDS ORDERED: MoRPHine SULFATE CR 15 MG TAB (MS CONTIN) PO STA (00:29)
--- NOTE | 2017-08-17 00:34 | EMERGENCY ROOM VISIT NOTE ---
ED Visit Note First contact with patient: 00:29 s/o from Dr. Loomis. Medically cleared after having IB/ASA overdose. ASA level check x 2. Psych placement pending. Voluntary at this time but 302 if patient attempts to leave. Placement confirmed and patient transferred.
[2017-08-17 03:26] VITALS: BP 129/105; PULSE 79; TEMP 36.5; O2SAT 98
[2017-08-20 00:14] LABS: COD UR NEGATIVE NG/ML (CUTOFF=50); HYDROCOD UR NEGATIVE NG/ML (CUTOFF=50); HYDROMOR UR NEGATIVE NG/ML (CUTOFF=50); MORPHINE UR NEGATIVE NG/ML (CUTOFF=50); NORHYDROCODONE CONF UR NEGATIVE NG/ML (CUTOFF=50); OXYMORPH UR 1280 NG/ML (CUTOFF=50)
== END 2017-08-17 03:27 | disposition short-term general hospital (02) ==
LOC: EDBD 14:17 → C.EDC 14:18 → CANBEDREQ 20:41 → C.EDA 08-17 03:27
DX: T39.011A Poisoning by aspirin, accidental (unintentional), initial encounter (principal); T39.311A Poisoning by propionic acid derivatives, accidental (unintentional), initial encounter; R29.898 Other symptoms and signs involving the musculoskeletal system; F41.9 Anxiety disorder, unspecified; E11.9 Type 2 diabetes mellitus without complications; J44.9 Chronic obstructive pulmonary disease, unspecified; F17.200 Nicotine dependence, unspecified, uncomplicated; Z86.711 Personal history of pulmonary embolism; Z86.73 Personal history of transient ischemic attack (TIA), and cerebral infarction without residual deficits; Z87.01 Personal history of pneumonia (recurrent); Z98.890 Other specified postprocedural states; Z83.3 Family history of diabetes mellitus; Z84.1 Family history of disorders of kidney and ureter; Z79.82 Long term (current) use of aspirin; Z79.899 Other long term (current) drug therapy

== ENCOUNTER → 2017-09-05 | Outpatient (CLI) | payer OTHER ==
[~2017-09-05] MED LIST changes: +ASPI81TA28 PO; -DOCU-94 PO; -DULO60CA44 PO; +ERGO500037 PO; -FINA5TAB4 PO; -HYDR50CA2 PO; -LEVO25TA5 PO; +MORP-157 PO; -MORP1TAB11 PO; -MRLP527 PO; -OMEP20CA9 PO; -OXY/15 PO; +OXYSR15 PO; +POTA10CA28 PO; -SRQ25 PO; -SUMA1INJ5 IM; -TAMS0.4C38 PO; -TOPI200T20 PO; -TRAZ-120 PO
[2017-09-05 16:05] LABS: ALT/SGPT 21 U/L (12-78); AST/SGOT 11 U/L (15-37); BLOOD UREA NITROGEN 10 mg/dl (7-18); BUN/CREATININE RATIO 10.9 (10-20); CALCIUM 8.9 mg/dl (8.5-10.1); CARBON DIOXIDE 25 mmol/L (21-32); CHLORIDE 111 mmol/L (98-107); CREATININE 0.95 mg/dl (0.60-1.40); GLUCOSE 112 mg/dl (70-99); POTASSIUM 4.1 mmol/L (3.5-5.1); SODIUM 139 mmol/L (136-145)
[2017-09-05 16:08] LABS: ALKALINE PHOSPHATASE 90 U/L (45-117)
== END | disposition home or self-care (01) ==
LOC: C.LAB 14:56
PROVIDERS: ATTEND Family Medicine
DX: F11.20 Opioid dependence, uncomplicated (principal)

== ENCOUNTER → 2017-12-08 | Outpatient (CLI) | payer OTHER ==
[~2017-12-08] MED LIST changes: +GABA-1219 PO; -GABA1CAP4 PO; +NAPR-1231 PO; -NAPR500T3 PO
[2017-12-08 16:54] LABS: BLOOD UREA NITROGEN 13 mg/dl (7-18); CREATININE 1.05 mg/dl (0.60-1.40)
== END | disposition home or self-care (01) ==
LOC: C.LAB 15:19
PROVIDERS: ATTEND Physician Assistant
DX: E11.9 Type 2 diabetes mellitus without complications (principal)

== ENCOUNTER → 2017-12-16 | Outpatient (CLI) | payer OTHER ==
[~2017-12-16] MED LIST changes: +GADAVIST IV PRN
--- NOTE | 2017-12-16 13:29 | DIAGNOSTIC IMAGING REPORT ---
MRI LUMBAR SPINE COMBINATION CLINICAL HISTORY: Low back pain with left leg radiculopathy. TECHNIQUE: Sagittal and axial T1, T2 and STIR images were obtained. Images were acquired before and after the administration of 15.5 cc of intravenous Gadavist. COMPARISON STUDY: 03/02/2016 OBSERVATIONS: The vertebral bodies and posterior elements appear intact. There is no abnormal bony signal present to suggest a marrow replacement process. L1-2: No disc protrusions or extrusions. No evidence of spinal canal or neural foraminal compromise. L2-3: No disc protrusions or extrusions. No evidence of spinal canal or neural foraminal compromise. L3-4: There is a minor circumferential disc bulge. There is disc desiccation. There is no significant spinal or foraminal stenosis. L4-5: There is left anterior extradural soft tissue which mildly deforms the thecal sac. This also abuts the left L5 nerve root. There is post gadolinium enhancement. As this was not present on the prior 2015 study, despite postsurgical changes at this level at that time. This suggests interval development of a small disc extrusion with surrounding enhancement.. L5-S1: The disc is desiccated. There is a mild circumferential disc bulge. There is no significant spinal or foraminal stenosis. The conus medullaris and cauda equina appear normal. IMPRESSION: 1. Interval development of a small left anterior extradural soft tissue lesion at the L4-5 level. There is mild thecal sac distortion. This abuts the left L5 nerve root. There is surrounding post gadolinium enhancement. The findings likely indicate interval development of a small disc extrusion with surrounding inflammatory enhancement. Electronically signed by: Luis Castro M.D. 12/16/2017 1:27 PM Dictated Date/Time: 12/16/2017 1:18 PM
== END | disposition home or self-care (01) ==
LOC: C.MRI 11:44
PROVIDERS: ATTEND Physician Assistant
DX: M54.16 Radiculopathy, lumbar region (principal)

== ENCOUNTER 2017-12-29 07:34 | Inpatient (IN) | payer OTHER ==
[~2017-12-29] VITALS: Ht 177.8 cm; Wt 152.9 kg
[2017-12-29] VITALS (9 sets, daily range): BP systolic 115–162; BP diastolic 72–97; PULSE 68–87; TEMP 36.3–36.6; O2SAT 92–97; Ht 177.8 cm; Wt 152.9 kg
[~2017-12-29 07:34] MED LIST changes: -GADAVIST IV PRN
[2017-12-29] MEDS ORDERED: SODIUM CHLORIDE 0.9% 1000ML 1,000 ML IV STA (07:51)
[2017-12-29 08:03] LABS: BASO % 0.3 %; BASO ABS # 0.03 K/uL (0-0.2); EOS % 1.8 %; EOS ABS # 0.18 K/uL (0-0.5); HEMATOCRIT 45.7 % (42-52); HEMOGLOBIN 15.5 g/dL (14.0-18.0); IG# 0.02 K/uL (0.00-0.02); LYMPH % 14.9 %; LYMPH ABS # 1.46 K/uL (1.2-3.4); MEAN CELL VOLUME 86.6 fL (80-100); MEAN CORPUSCULAR HEMOGLOBIN 29.4 pg (25-34); MEAN CORPUSCULAR HGB CONC 33.9 g/dl (32-36); MEAN PLATELET VOLUME 10.4 fL (7.4-10.4); MONO % 6.2 %; MONO ABS # 0.61 K/uL (0.11-0.59); NEUT % 76.6 %; PLATELET COUNT 191 K/uL (130-400); RED CELL DISTRIBUTION WIDTH CV 14.6 % (11.5-14.5); RED CELL DISTRIBUTION WIDTH SD 46.4 fL (36.4-46.3)
[2017-12-29 08:12] LABS: PTT PATIENT 25.1 SECONDS (21.0-31.0)
[2017-12-29 08:23] LABS: ALBUMIN 3.8 gm/dl (3.4-5.0); ALT/SGPT 24 U/L (12-78); BLOOD UREA NITROGEN 11 mg/dl (7-18); CALCIUM 9.6 mg/dl (8.5-10.1); CARBON DIOXIDE 30 mmol/L (21-32); CREATININE 1.12 mg/dl (0.60-1.40); GLUCOSE 131 mg/dl (70-99); SODIUM 143 mmol/L (136-145)
[2017-12-29 08:28] LABS: ALKALINE PHOSPHATASE 112 U/L (45-117); AST/SGOT 19 U/L (15-37); TOTAL PROTEIN 7.6 gm/dl (6.4-8.2)
--- NOTE | 2017-12-29 08:33 | DIAGNOSTIC IMAGING REPORT ---
CHEST ONE VIEW PORTABLE CLINICAL HISTORY: 47 years-old Male presenting with AMS. TECHNIQUE: Portable upright AP view of the chest was obtained. COMPARISON: 08/16/2017. FINDINGS: Mild cardiac silhouette enlargement, unchanged. Pulmonary vascular prominence. Mildly low lung volumes with hypoventilatory changes. No focal opacity. No large effusion or pneumothorax. Osseous structures normal. Upper abdomen normal. IMPRESSION: 1. Suggestion of mild cardiomegaly with volume overload. No yeimi pulmonary edema or other evidence of acute cardiopulmonary disease. 2. Mildly low lung volumes with hypoventilatory changes. Electronically signed by: Joey Merida M.D. 12/29/2017 8:32 AM Dictated Date/Time: 12/29/2017 8:31 AM
[2017-12-29] MEDS ORDERED: LRS10 PO (08:52)
[2017-12-29] MEDS ORDERED: CTP1 PO (08:52)
[2017-12-29] MEDS ORDERED: ATR25 PO (08:52)
[2017-12-29] MEDS ORDERED: BUPR1SUB23 PO (08:52)
--- NOTE | 2017-12-29 09:27 | DIAGNOSTIC IMAGING REPORT ---
CT SCAN OF THE BRAIN WITHOUT IV CONTRAST CLINICAL HISTORY: Change in mental status. COMPARISON STUDY: CT of the brain dated 08/16/2017. TECHNIQUE: Unenhanced axial CT scan of the brain is performed from the vertex to the skull base. A dose lowering technique was utilized adhering to the principles of ALARA. CT DOSE: 558.98 mGy.cm FINDINGS: Brain parenchyma: The brain parenchyma is normal in appearance. There is no hemorrhage, mass effect, or evidence of acute territorial ischemia by CT criteria. [place]-white matter is preserved. No extra-axial fluid collection is seen. Ventricles, sulci, cisterns: Normal in configuration. Intracranial vasculature: The visualized intracranial vasculature at the skull base is normal in appearance. Calvarium: Unremarkable. Sinuses and mastoids: Mild mucosal thickening is noted within the partially imaged right maxillary antrum. Moderate mucosal thickening is seen in the right ethmoid sinuses. Trace mucosal thickening is seen in the right frontal sinus. The mastoid air cells are well pneumatized. Orbits: The bony orbits are grossly intact. Soft tissues: A 5 cm lipoma is noted in the right occipital scalp. IMPRESSION: 1. There is no hemorrhage, mass effect, or evidence of acute territorial ischemia by CT criteria. 2. Paranasal sinus disease as above. Electronically signed by: Misael Lopez M.D. 12/29/2017 9:26 AM Dictated Date/Time: 12/29/2017 9:23 AM
[2017-12-29] MEDS ORDERED: ONDANSETRON INJ 2 MG/ML 2 ML VIAL IV PRN (10:45)
[2017-12-29] MEDS ORDERED: MAGNESIUM HYDROXIDE SUSP 30 ML UDC PO PRN (10:45)
[2017-12-29] MEDS ORDERED: OMEP20CA9 PO (11:23)
[2017-12-29] MEDS ORDERED: CYM/30 PO (11:23)
[2017-12-29] MEDS ORDERED: NRN800 PO (11:23)
[2017-12-29] MEDS ORDERED: CYCL10TA6 PO (11:23)
[2017-12-29] MEDS ORDERED: KETO10TA PO (11:23)
[2017-12-29] MEDS ORDERED: DEXTROSE 50% 50 ML SYR IV PRN (12:00)
[2017-12-29] MEDS: ALBUT/IPRATROP 3MG/0.5MG NEB 3 ML VIAL INH SCH ×4 (12:00→18:57)
[2017-12-29] MEDS ORDERED: GLUCOSE 40% GEL 15 GM TUBE PO PRN (12:00)
[2017-12-29] MEDS ORDERED: GLUCOSE 10 TABS/TUBE PO PRN (12:00)
[2017-12-29] MEDS ORDERED: GLUCAGON FOR INJ 1 MG VIAL SQ PRN (12:00)
--- NOTE | 2017-12-29 12:09 | History and Physical ---
History & Physical Date & Time of Service: Dec 29, 2017 at 10:53 Chief Complaint: AMS Primary Care Physician: Tesha Loredo M.D. (MEDICAL) History of Present Illness Source: partner, clinic records, hospital records Pt is 47 y/o M with PMH mood disorder, depression/anxiety, COPD, DM II-diet controlled, chronic back pain, chronic headaches, tobacco use presented to ER via EMS for altered mental status. History obtained from patient's girlfriend as patient somnolent and not speaking. Patient's girlfriend states patient was in usual health yesterday. She states patient got up this morning and stated that he had to go to the bathroom. She reports he was in the bathroom for a long time so she went to check on him and he was sitting there and looked confused. He then got up and was walking around in circles in the house acting confused. Girlfriend reports patient was speaking at that time and was telling her to "stop it" as she was asking him to sit down. EMS was called and patient transported to ER. In ER patient nonverbal, awakens to painful stimuli. Patient's girlfriend reports has not seen him consuming any alcohol. She did not see him consuming medications last night or this morning. She reports that he has been "doing well" for the past couple of months and his moods have been stable. She reports patient complains of chronic back pain which she did state he had yesterday however reports this is not unusual for patient. Also reported yesterday as having some nausea and girlfriend reports patient with chronic intermittent nausea and abdominal pains in the past.Girlfriend reports follows with Dr. Cook for his Suboxone. And had appointment with Dr. Cook yesterday. Patient gets Suboxone Rx in 1 week supplies. Girlfriend states has not noticed any vomiting or diarrhea or noted recent illnesses. This provider called [facility]'s pharmacy in [place] as PDMP is not working currently. Patient had once a week supply of Suboxone filled yesterday. Had Flexeril prescription last filled 12/09/17. Has not had Cymbalta Rx filled for couple months. Gabapentin Rx filled 12/15/17 for 30 day supply. Hydroxyzine Rx filled on 11/19/17 for 40 pills. Ketorolac Rx filled on 12/27/17. Meloxicam Rx. . Patient used to be on Ativan has not had that Rx filled since July 2017. Used to be on trazodone at bedtime, Rx has not been filled since 09/2017. Topamax 50 mg twice daily Rx has not been filled since 10/2017. Past Medical/Surgical History Medical Problems: (1) Anxiety and depression Status: Chronic (2) Atypical chest pain Status: Resolved (3) BPH (benign prostatic hypertrophy) Status: Chronic (4) Cellulitis Status: Resolved (5) Chronic pain syndrome Status: Chronic (6) Community acquired bacterial pneumonia Status: Resolved (7) COPD, moderate Status: Chronic (8) Diabetes Status: Chronic (9) Drug ingestion Status: Resolved (10) Encounter for removal of sutures Status: Resolved (11) Hypokalemia Status: Resolved (12) Laceration of abdomen Status: Resolved (13) Laceration of left ankle Status: Resolved (14) Narcotic dependence Status: Chronic (15) Obesity Status: Chronic (16) Open wounds involving multiple regions of upper and lower extremities Status: Resolved (17) Personality disorder Status: Chronic (18) Pulmonary embolism Status: Chronic (19) Shortness of breath Status: Resolved (20) Suicidal ideation Status: Resolved (21) Syncope Status: Resolved (22) Vomiting and diarrhea Status: Resolved Surgical Problems: (1) History of back surgery Status: Chronic Family History Cancer Diabetes mellitus Heart disease Kidney disease Kidney stones Lung disease Social History Smoking Status: Current Every Day Smoker Marital Status: in relationship Housing status: lives with significant other, other Occupational Status: disabled Immunizations History of Influenza Vaccine: No History of Tetanus Vaccine?: utd Tetanus Immunization Date: Mar 23, 2005 History of Pneumococcal: Yes Pneumococcal Date: Mar 21, 2005 History of Hepatitis B Vaccine: No Allergies Coded Allergies: Acetaminophen (Unverified Allergy, Intermediate, "THEY TOLD ME I GET KIDNEY DISEASE", 12/29/17) Fentanyl (Verified Allergy, Intermediate, RASH/HIVES/SKIN REDNESS, 12/29/17 ) FROM PATCH ONLY Valproic Acid (Verified Adverse Reaction, Intermediate, PANCREATITIS, 12/29) Valproic Acid and Related (Verified Adverse Reaction, Intermediate, PANCREATITS, 12/29/17) Home Medications Scheduled Baclofen (Baclofen), 10 MG PO DAILY Buprenorphine Hcl-Naloxone Hcl (Suboxone 8-2 Mg), 1 TAB PO BID Clonidine HCl (Clonidine HCl), 0.1 MG PO BID Cyclobenzaprine Hcl (Flexeril), 10 MG PO HS Duloxetine Hcl (Cymbalta), 30 MG PO DAILY Gabapentin (Gabapentin), 1 TAB PO TID Omeprazole (Prilosec), 20 MG PO DAILY Potassium Chloride (Micro-K Ext Rel), 20 MEQ PO DAILY Scheduled PRN Albuterol Hfa (Ventolin Hfa), 2 PUFFS INH QID PRN for SOB/Wheezing Hydroxyzine HCl (Hydroxyzine HCl), 25 MG PO Q6 PRN for Itching Ketorolac (Toradol), 10 MG PO TID PRN for Pain Review of Systems Further ROS cannot be obtained secondary to patient's altered mental status. Physical Exam Vital Signs Date Time Temp Pulse Resp B/P (MAP) Pulse Ox O2 Delivery O2 Flow Rate FiO2 12/29/17 10:45 70 12/29/17 10:24 69 16 137/76 96 Room Air 12/29/17 09:42 67 16 127/78 99 Room Air 12/29/17 08:58 70 16 138/80 95 Room Air 12/29/17 07:47 36.3 72 20 140/84 96 Room Air 12/29/17 07:42 66 General Appearance: no apparent distress, + obese, + pertinent finding (Lying supine in bed with eyes closed. Maintaining own airway. Patient coughs and sits up in bed and opens eyes and looks at his provider then returned to supine position with eyes closed. Patient opens eyes with firm tactile stimuli. Patient not talking and not otherwise interacting.) Head: normocephalic, atraumatic Eyes: normal inspection, PERRL, sclerae normal, + pertinent finding (No pupil dilation or restriction noted) ENT: + pertinent finding (Mucous membranes moist) Neck: supple, no JVD, trachea midline Respiratory/Chest: no respiratory distress, no accessory muscle use, + decreased breath sounds, + wheezing (Scattered throughout, no rales or rhonchi noted) Cardiovascular: regular rate, rhythm, no murmur, normal peripheral pulses Abdomen/GI: normal bowel sounds, non tender, soft Extremities/Musculoskelatal: + pertinent finding (No pitting edema noted, no significant erythema.) Neurologic/Psych: + pertinent finding (Lying supine in bed with eyes closed. Maintaining own airway. Patient coughs and sits up in bed and opens eyes and looks at his provider then returned to supine position with eyes closed. Patient opens eyes with firm tactile stimuli. Patient not talking and not otherwise interacting.) Skin: normal color, warm/dry Diagnostics Laboratory Results Results Past 24 Hours Test 12/29/17 07:50 12/29/17 08:39 12/29/17 08:50 Range/Units White Blood Count 9.80 4.8-10.8 K/uL Red Blood Count 5.28 4.7-6.1 M/uL Hemoglobin 15.5 14.0-18.0 g/dL Hematocrit 45.7 42-52 % Mean Corpuscular Volume 86.6 80-100 fL Mean Corpuscular Hemoglobin 29.4 25-34 pg Mean Corpuscular Hemoglobin Concent 33.9 32-36 g/dl Platelet Count 191 130-400 K/uL Mean Platelet Volume 10.4 7.4-10.4 fL Neutrophils (%) (Auto) 76.6 % Lymphocytes (%) (Auto) 14.9 % Monocytes (%) (Auto) 6.2 % Eosinophils (%) (Auto) 1.8 % Basophils (%) (Auto) 0.3 % Neutrophils # (Auto) 7.50 1.4-6.5 K/uL Lymphocytes # (Auto) 1.46 1.2-3.4 K/uL Monocytes # (Auto) 0.61 0.11-0.59 K/uL Eosinophils # (Auto) 0.18 0-0.5 K/uL Basophils # (Auto) 0.03 0-0.2 K/uL RDW Standard Deviation 46.4 36.4-46.3 fL RDW Coefficient of Variation 14.6 11.5-14.5 % Immature Granulocyte % (Auto) 0.2 % Immature Granulocyte # (Auto) 0.02 0.00-0.02 K/uL Prothrombin Time 10.0 9.0-12.0 SECONDS Prothromb Time International Ratio 1.0 0.9-1.1 Activated Partial Thromboplast Time 25.1 21.0-31.0 SECONDS Partial Thromboplastin Ratio 1.0 Sodium Level 143 136-145 mmol/L Potassium Level 4.0 3.5-5.1 mmol/L Chloride Level 106 98-107 mmol/L Carbon Dioxide Level 30 21-32 mmol/L Anion Gap 7.0 3-11 mmol/L Blood Urea Nitrogen 11 7-18 mg/dl Creatinine 1.12 0.60-1.40 mg/dl Est Creatinine Clear Calc Drug Dose 119.2 ml/min Estimated GFR () 90.2 Estimated GFR (Non- 77.8 BUN/Creatinine Ratio 9.4 10-20 Random Glucose 131 70-99 mg/dl Calcium Level 9.6 8.5-10.1 mg/dl Total Bilirubin 0.6 0.2-1 mg/dl Direct Bilirubin 0.1 0-0.2 mg/dl Aspartate Amino Transf (AST/SGOT) 19 15-37 U/L Alanine Aminotransferase (ALT/SGPT) 24 12-78 U/L Alkaline Phosphatase 112 45-117 U/L Troponin I < 0.015 0-0.045 ng/ml Total Protein 7.6 6.4-8.2 gm/dl Albumin 3.8 3.4-5.0 gm/dl Salicylates Level < 1.7 2.8-20 mg/dl Acetaminophen Level < 2 10-30 ug/ml Ethyl Alcohol mg/dL < 3.0 0-3 mg/dl Urine Color YELLOW Urine Appearance CLEAR CLEAR Urine pH 8.0 4.5-7.5 Urine Specific [place] 1.020 1.000-1.030 Urine Protein NEG NEG Urine Glucose (UA) NEG NEG Urine Ketones NEG NEG Urine Occult Blood NEG NEG Urine Nitrite NEG NEG Urine Bilirubin NEG NEG Urine Urobilinogen NEG NEG Urine Leukocyte Esterase NEG NEG Urine WBC (Auto) 0 0-5 /hpf Urine RBC (Auto) 0-4 0-4 /hpf Urine Hyaline Casts (Auto) 0 0-5 /lpf Urine Epithelial Cells (Auto) 0-5 0-5 /lpf Urine Bacteria (Auto) NEG NEG Urine Opiates Screen NEG NEG Urine Methadone, Qualitative NEG NEG Urine Barbiturates NEG NEG Urine Phencyclidine (PCP) Level NEG NEG Ur Amphetamine/Methamphetamine NEG NEG MDMA (Ecstasy) Screen NEG NEG Urine Benzodiazepines Screen NEG NEG Urine Cocaine Metabolite NEG NEG Urine Marijuana (THC) NEG NEG Diagnostic Radiology CT HEAD: IMPRESSION: 1. There is no hemorrhage, mass effect, or evidence of acute territorial ischemia by CT criteria. 2. Paranasal sinus disease as above. CXR: IMPRESSION: 1. Suggestion of mild cardiomegaly with volume overload. No yeimi pulmonary edema or other evidence of acute cardiopulmonary disease. 2. Mildly low lung volumes with hypoventilatory changes. EKG EKG: NSR, [address] elevation noted Impression Assessment and Plan ALTERED MENTAL STATUS Patient is 47-year-old male with history of mood disorder, depression anxiety, chronic pain, history of opioid drug abuse in the past, currently on Suboxone. Patient with confusion and repeated walking around house this morning reported by girlfriend. Girlfriend does not think patient overdosed. upon arrival to ER patient is nonverbal and opening eyes to painful stimuli only. Patient is afebrile and vitals stable and maintaining his own airway. No electrolyte abnormalities, negative troponin, UA negative, urine tox screen negative, negative EtOH, negative acetaminophen level, negative salicylate level, EKG normal sinus rhythm no acute changes. CT head no acute changes. CXR: Suggestion of mild cardiomegaly with volume overload. No yeimi pulmonary edema or other evidence of acute cardiopulmonary disease. -PDMP currently is not working, I contacted patient pharmacy-[facility] in [place] to confirm patient's med list. See HPI for medications and fill dates. -Admit telemetry for further observation -ABG and ammonia level added -Patient given Lasix 40 mg IV, monitor I&O's -holding patient's home meds currently secondary to altered mental status -Repeat CBC, PRP -May need psychiatry consult COPD Patient on albuterol inhaler as needed. No leukocytosis, afebrile, chest x-ray without infiltrate. Patient with wheezing on exam -Duonebs -Continue to monitor DM II Diet-controlled. Glucose 131 -H A1c in a.m -Patient n.p.o. currently and will continue NovoLog sliding scale per protocol CHRONIC PAIN Patient with history of chronic back pain and headaches. On Suboxone and Flexeril. Has been taking ketorolac. -Holding oral meds secondary to altered mental status ANXIETY/DEPRESSION/MOOD DISORDER Patient with history of being on Cymbalta refilled for a couple of months. Patient's girlfriend thought patient was continuing to take Cymbalta. TOBACCO USE DVT Prophylaxis -heparin SQ Disposition admit tele Full Code Follows with Dr Loredo for routine care Pt was seen with Dr Vasquez. See addendum Attending addendum: The patient was seen and examined in emergency room. He was admitted with the altered mental status. His saw him wondering about the home at around 4:30 AM, he was not talking at this time on asking any questions. At around 6 AM he was in a coma for about half an hour but it still was not answering any question. He did not have any acute symptoms but the called 911 and the patient was brought into emergency room. On examination: He is hemodynamically stable with normal O2 saturation. He opens eyes at times and coughs but does not respond to any question Chest bilateral wheezing but no crackles Heart-S1-S2 regular no murmur Abdomen-normal, nontender, no organomegaly, bowel sounds present Extremities-no edema [employer]-no neck stiffness, no pupillary abnormality. Otherwise as above. His labs and imaging studies were reviewed-no significant abnormalities found. AMS-likely Metabolic and Polysubstance use eg Gabapentin,Ultram,Trazodone and Suboxone. ABG and ammonia level will be checked. He will be admitted to telemetry and agree with assessment and plan as outlined above. Dr. Abdulaziz Vasquez Resuscitation Status Full code VTE Prophylaxis Will order VTE Prophylaxis: Yes Additional Copies To Tesha Loredo M.D. (MEDICAL)
[2017-12-29] MEDS ORDERED: FUROSEMIDE INJ 40 MG in SYRINGE 0 ML IV ONE (12:30)
[2017-12-29] MEDS ORDERED: NURSING VERBAL MED ORDER ONE (13:15)
[2017-12-29] MEDS: HEPARIN SOD 5000 UNIT/0.5 ML CARP SQ SCH ×3 (13:49→21:44)
--- NOTE | 2017-12-29 14:25 | EMERGENCY ROOM VISIT NOTE ---
History Report prepared by Alek: Anthony Ramos Under the Supervision of: Dr. Bladimir Portillo D.O. First contact with patient: 07:45 Stated Complaint: AMS History of Present Illness The patient is a 47 year old male who presents to the Emergency Room by EMS with complaints of a constant altered mental status beginning today. Per nursing staff, the patient's girlfriend noted the patient to be confused today and called EMS. She states that the patient is reported to have been wandering around his room. She states that the patient briefly fell asleep for about five minutes while EMS was on scene. EMS notes that the patient's pupils appear very dilated. They also note that the patient is on chronic oxycodone and lorazepam. HPI limited secondary to altered mental status. Source of History: EMS, nursing staff History Limited By: AMS Onset: Today Quality: other (altered mental status) Timing: constant Review of Systems ROS limited secondary to altered mental status. Past Medical & Surgical Medical Problems: (1) Altered mental status (2) Anxiety and depression (3) Atypical chest pain (4) BPH (benign prostatic hypertrophy) (5) Cellulitis (6) Chronic pain syndrome (7) Community acquired bacterial pneumonia (8) COPD, moderate (9) Diabetes (10) Drug ingestion (11) Encounter for removal of sutures (12) Hypokalemia (13) Laceration of abdomen (14) Laceration of left ankle (15) Narcotic dependence (16) Obesity (17) Open wounds involving multiple regions of upper and lower extremities (18) Personality disorder (19) Positive blood culture (20) Pulmonary embolism (21) Shortness of breath (22) Suicidal ideation (23) Syncope (24) Urinary retention (25) Vomiting and diarrhea Surgical Problems: (1) History of back surgery Family History Cancer Diabetes mellitus Heart disease Kidney disease Kidney stones Lung disease Social History Smoking Status: Current Every Day Smoker Alcohol Use: none Drug Use: none Marital Status: in relationship Housing Status: lives with family, senior living Occupation Status: disabled Current/Historical Medications Scheduled Baclofen (Baclofen), 10 MG PO DAILY Buprenorphine Hcl-Naloxone Hcl (Suboxone 8-2 Mg), 1 TAB PO BID Clonidine HCl (Clonidine HCl), 0.1 MG PO BID Cyclobenzaprine Hcl (Flexeril), 10 MG PO HS Duloxetine Hcl (Cymbalta), 30 MG PO DAILY Gabapentin (Gabapentin), 1 TAB PO TID Omeprazole (Prilosec), 20 MG PO DAILY Potassium Chloride (Micro-K Ext Rel), 20 MEQ PO DAILY Scheduled PRN Albuterol Hfa (Ventolin Hfa), 2 PUFFS INH QID PRN for SOB/Wheezing Hydroxyzine HCl (Hydroxyzine HCl), 25 MG PO Q6 PRN for Itching Ketorolac (Toradol), 10 MG PO TID PRN for Pain Allergies Coded Allergies: Acetaminophen (Unverified Allergy, Intermediate, "THEY TOLD ME I GET KIDNEY DISEASE", 12/29/17) Fentanyl (Verified Allergy, Intermediate, RASH/HIVES/SKIN REDNESS, 12/29/17 ) FROM PATCH ONLY Valproic Acid (Verified Adverse Reaction, Intermediate, PANCREATITIS, 12/29) Valproic Acid and Related (Verified Adverse Reaction, Intermediate, PANCREATITS, 12/29/17) Physical Exam Vital Signs Date Time Temp Pulse Resp B/P (MAP) Pulse Ox O2 Delivery O2 Flow Rate FiO2 12/29/17 10:24 69 16 137/76 96 Room Air 12/29/17 09:42 67 16 127/78 99 Room Air 12/29/17 08:58 70 16 138/80 95 Room Air 12/29/17 07:47 36.3 72 20 140/84 96 Room Air 12/29/17 07:42 66 Physical Exam GENERAL: Sitting up in bed, eyes closed, no acute distress, non-toxic. EYE EXAM: normal conjunctiva. Pupils are dilated but reactive bilaterally. OROPHARYNX: no exudate, no erythema, lips, buccal mucosa, and tongue normal and mucous membranes are moist NECK: supple, no nuchal rigidity, no adenopathy, non-tender LUNGS: Clear to auscultation. Normal chest wall mechanics HEART: no murmurs, S1 normal and S2 normal ABDOMEN: abdomen soft, non-tender, normo-active bowel sounds, no masses, no rebound or guarding. BACK: Back is symmetrical on inspection and there is no deformity, no midline tenderness, no CVA tenderness. SKIN: no rashes and no bruising UPPER EXTREMITIES: upper extremities are grossly normal. LOWER EXTREMITIES: No pitting edema. NEURO EXAM: Sleeping. Awakens to painful stimuli and moves extremities. Does not follow commands or answer questions appropriately. Medical Decision & Procedures ER Provider Diagnostic Interpretation: Radiology results as stated below per my review and the radiologist's interpretation: CT SCAN OF THE BRAIN WITHOUT IV CONTRAST FINDINGS: Brain parenchyma: The brain parenchyma is normal in appearance. There is no hemorrhage, mass effect, or evidence of acute territorial ischemia by CT criteria. [place]-white matter is preserved. No extra-axial fluid collection is seen. Ventricles, sulci, cisterns: Normal in configuration. Intracranial vasculature: The visualized intracranial vasculature at the skull base is normal in appearance. Calvarium: Unremarkable. Sinuses and mastoids: Mild mucosal thickening is noted within the partially imaged right maxillary antrum. Moderate mucosal thickening is seen in the right ethmoid sinuses. Trace mucosal thickening is seen in the right frontal sinus. The mastoid air cells are well pneumatized. Orbits: The bony orbits are grossly intact. Soft tissues: A 5 cm lipoma is noted in the right occipital scalp. IMPRESSION: 1. There is no hemorrhage, mass effect, or evidence of acute territorial ischemia by CT criteria. 2. Paranasal sinus disease as above. Electronically signed by: Misael Lopez M.D. 12/29/2017 9:26 AM CHEST ONE VIEW PORTABLE FINDINGS: Mild cardiac silhouette enlargement, unchanged. Pulmonary vascular prominence. Mildly low lung volumes with hypoventilatory changes. No focal opacity. No large effusion or pneumothorax. Osseous structures normal. Upper abdomen normal. IMPRESSION: 1. Suggestion of mild cardiomegaly with volume overload. No yeimi pulmonary edema or other evidence of acute cardiopulmonary disease. 2. Mildly low lung volumes with hypoventilatory changes. Electronically signed by: Joey Merida M.D. 12/29/2017 8:32 AM Laboratory Results 12/29/17 07:50 Red Blood Count 5.28, Mean Corpuscular Volume 86.6, Mean Corpuscular Hemoglobin 29.4, Mean Corpuscular Hemoglobin Concent 33.9, Mean Platelet Volume 10.4, Neutrophils (%) (Auto) 76.6, Lymphocytes (%) (Auto) 14.9, Monocytes (%) (Auto) 6.2, Eosinophils (%) (Auto) 1.8, Basophils (%) (Auto) 0.3, Neutrophils # (Auto) 7.50, Lymphocytes # (Auto) 1.46, Monocytes # (Auto) 0.61, Eosinophils # (Auto) 0.18, Basophils # (Auto) 0.03 12/29/17 07:50 Test 12/29/17 07:50 12/29/17 08:39 12/29/17 08:50 White Blood Count 9.80 K/uL (4.8-10.8) Red Blood Count 5.28 M/uL (4.7-6.1) Hemoglobin 15.5 g/dL (14.0-18.0) Hematocrit 45.7 % (42-52) Mean Corpuscular Volume 86.6 fL (80-100) Mean Corpuscular Hemoglobin 29.4 pg (25-34) Mean Corpuscular Hemoglobin Concent 33.9 g/dl (32-36) Platelet Count 191 K/uL (130-400) Mean Platelet Volume 10.4 fL (7.4-10.4) Neutrophils (%) (Auto) 76.6 % Lymphocytes (%) (Auto) 14.9 % Monocytes (%) (Auto) 6.2 % Eosinophils (%) (Auto) 1.8 % Basophils (%) (Auto) 0.3 % Neutrophils # (Auto) 7.50 K/uL (1.4-6.5) Lymphocytes # (Auto) 1.46 K/uL (1.2-3.4) Monocytes # (Auto) 0.61 K/uL (0.11-0.59) Eosinophils # (Auto) 0.18 K/uL (0-0.5) Basophils # (Auto) 0.03 K/uL (0-0.2) RDW Standard Deviation 46.4 fL (36.4-46.3) RDW Coefficient of Variation 14.6 % (11.5-14.5) Immature Granulocyte % (Auto) 0.2 % Immature Granulocyte # (Auto) 0.02 K/uL (0.00-0.02) Prothrombin Time 10.0 SECONDS (9.0-12.0) Prothromb Time International Ratio 1.0 (0.9-1.1) Activated Partial Thromboplast Time 25.1 SECONDS (21.0-31.0) Partial Thromboplastin Ratio 1.0 Anion Gap 7.0 mmol/L (3-11) Est Creatinine Clear Calc Drug Dose 119.2 ml/min Estimated GFR () 90.2 Estimated GFR (Non- 77.8 BUN/Creatinine Ratio 9.4 (10-20) Calcium Level 9.6 mg/dl (8.5-10.1) Total Bilirubin 0.6 mg/dl (0.2-1) Direct Bilirubin 0.1 mg/dl (0-0.2) Aspartate Amino Transf (AST/SGOT) 19 U/L (15-37) Alanine Aminotransferase (ALT/SGPT) 24 U/L (12-78) Alkaline Phosphatase 112 U/L (45-117) Troponin I < 0.015 ng/ml (0-0.045) Total Protein 7.6 gm/dl (6.4-8.2) Albumin 3.8 gm/dl (3.4-5.0) Thyroid Stimulating Hormone (TSH) 1.970 uIu/ml (0.300-4.500) Salicylates Level < 1.7 mg/dl (2.8-20) Acetaminophen Level < 2 ug/ml (10-30) Ethyl Alcohol mg/dL < 3.0 mg/dl (0-3) Urine Color YELLOW Urine Appearance CLEAR (CLEAR) Urine pH 8.0 (4.5-7.5) Urine Specific [place] 1.020 (1.000-1.030) Urine Protein NEG (NEG) Urine Glucose (UA) NEG (NEG) Urine Ketones NEG (NEG) Urine Occult Blood NEG (NEG) Urine Nitrite NEG (NEG) Urine Bilirubin NEG (NEG) Urine Urobilinogen NEG (NEG) Urine Leukocyte Esterase NEG (NEG) Urine WBC (Auto) 0 /hpf (0-5) Urine RBC (Auto) 0-4 /hpf (0-4) Urine Hyaline Casts (Auto) 0 /lpf (0-5) Urine Epithelial Cells (Auto) 0-5 /lpf (0-5) Urine Bacteria (Auto) NEG (NEG) Urine Opiates Screen NEG (NEG) Urine Methadone, Qualitative NEG (NEG) Urine Barbiturates NEG (NEG) Urine Phencyclidine (PCP) Level NEG (NEG) Ur Amphetamine/Methamphetamine NEG (NEG) MDMA (Ecstasy) Screen NEG (NEG) Urine Benzodiazepines Screen NEG (NEG) Urine Cocaine Metabolite NEG (NEG) Urine Marijuana (THC) NEG (NEG) Laboratory results per my review. Medications Administered Medications (Trade) Dose Ordered Sig/Amalia Route Start Time Stop Time Status Last Admin Dose Admin Sodium Chloride 1,000 ml @ 999 mls/hr Q1H1M STAT IV 12/29/17 07:51 12/29/17 08:51 DC 12/29/17 08:45 999 MLS/HR ECG Per My Interpretation Indication: altered mental status Rate (beats per minute): 64 Rhythm: sinus rhythm Findings: no ectopy, other (Normal axis. ) ED Course ED COURSE: Vital signs were reviewed and appear normal. The patients medical record was reviewed The above diagnostic studies were performed and reviewed. ED treatments and interventions as stated above. 0746: The patient was evaluated in room B12B. A complete history and physical examination was performed. 0751: Ordered Sodium Chloride 1000 ml @ 999 mls/hr IV. 0902: I spoke with the patient's family. They state that the patient was walking around confused today, but was acting completely normal yesterday. They note that the patient fell once two days ago. 0940: Upon reevaluation, the patient is resting comfortably. I discussed my findings with the patient's family and they understand and agree with the treatment plan. Based on the patients age, coexisting illnesses, exam and lab findings the decision to treat as an inpatient was made. The patient remained stable while under my care. The patient will be evaluated for further management. Medical Decision Differential diagnoses includes but is not limited to toxic, metabolic, infectious, traumatic, cardiac, neurologic, hematologic, psychiatric and inflammatory etiologies. Patient is a 47-year-old male that presents to ER for altered mental status brought in by EMS. Patient awakens to verbal stimuli but does not follow commands or hold a conversation. He is nonfocal. CBC along with BMP, LFTs, bilirubin and troponin was negative. UA was negative. Tox is negative. CT head was negative. Chest x-ray unremarkable. Uncertain of the clear etiology of the altered mentation. There is nothing to suggest nuchal rigidity. Afebrile. Not tachycardic. Do not believe meningitis. At this time unclear the source although question tox. Significant other was updated at bedside patient was admitted to internal medicine. Medication Reconcilliation Current Medication List: was personally reviewed by me Blood Pressure Screening Patient's blood pressure: Elevated blood pressure Blood pressure disposition: Referred to PCP Consults Time Called: [phone] Consulting Physician: Krista [facility] Hospitalist Returned Call: [phone] I reviewed the patient's case with Krista Vo will evaluate the patient for further management. Impression Primary Impression: Altered mental status Additional Impression: Hypokalemia Scribe Attestation The scribe's documentation has been prepared under my direction and personally reviewed by me in its entirety. I confirm that the note above accurately reflects all work, treatment, procedures, and medical decision making performed by me. Departure Information Dispostion Being Evaluated By Hospitalist Referrals Tesha Loredo M.D. (MEDICAL) (PCP) Problem Qualifiers Primary Impression: Altered mental status Altered mental status type: unspecified Qualified Codes: R41.82 - Altered mental status, unspecified
[2017-12-29] MEDS ORDERED: INSULIN ASPART 100 UNITS/ML 3 ML PEN SC SCH (16:30)
[2017-12-29] MEDS: INSULIN ASPART 100 UNITS/ML 3 ML PEN SC SCH ×2 (18:00→23:32)
[2017-12-30] VITALS (10 sets, daily range): BP systolic 140–184; BP diastolic 63–127; PULSE 67–100; TEMP 36.4–37.2; O2SAT 94–99
[2017-12-30] MEDS: HEPARIN SOD 5000 UNIT/0.5 ML CARP SQ SCH ×3 (05:24→22:15)
[2017-12-30] MEDS: INSULIN ASPART 100 UNITS/ML 3 ML PEN SC SCH ×4 (06:00→20:29)
[2017-12-30 06:24] LABS: HEMATOCRIT 44.3 % (42-52); HEMOGLOBIN 14.8 g/dL (14.0-18.0); MEAN CELL VOLUME 85.9 fL (80-100); MEAN CORPUSCULAR HEMOGLOBIN 28.7 pg (25-34); MEAN CORPUSCULAR HGB CONC 33.4 g/dl (32-36); PLATELET COUNT 179 K/uL (130-400); RED CELL DISTRIBUTION WIDTH SD 47.2 fL (36.4-46.3); WHITE BLOOD COUNT 8.76 K/uL (4.8-10.8)
[2017-12-30] MEDS: ALBUT/IPRATROP 3MG/0.5MG NEB 3 ML VIAL INH SCH ×4 (06:51→19:23)
[2017-12-30 06:54] LABS: CALCIUM 9.4 mg/dl (8.5-10.1); CREATININE 1.05 mg/dl (0.60-1.40)
--- NOTE | 2017-12-30 09:08 | Clinical Documentation Query ---
AG Shirley : CLINICAL DOCUMENTATION QUERY In your clinical opinion is this patient being managed for: ( ) (Possible/Suspected/Likely) Accidental overdose by Gabapentin,Ultram,Trazodone and Suboxone with associated toxic- metabolic encephalopathy ( ) (Possible/Suspected/Likely) Adverse effects of Gabapentin,Ultram,Trazodone and Suboxone with associated toxic- metabolic encephalopathy ( ) Not Agree ( ) Other explanation of clinical findings (Please Explain) ( x ) Unable to determine (Please Define) ( ) Need to Discuss The medical record reflects the following clinical findings, treatment, and risk factors. Clinical Indicators: AMS in the setting of polysubstance use with improved mental status with holding of meds. Treatment: Toxicology studies, ABG, ammonia level, holding of these meds. Risk Factors: Multiple psychoactive medications. Please clarify and document your clinical opinion in the progress notes and discharge summary. Terms such as "probable", "suspected", "likely", "questionable", "possible", or "still to be ruled out" are acceptable. IF IN AGREEMENT, YOU MUST DOCUMENT ABOVE DIAGNOSTIC STATEMENT IN DAILY PROGRESS NOTES AND DISCHARGE SUMMARY. This document is not part of the patient's record. Thank You, Siva Jorgensen, ALEXANDER [phone]
--- NOTE | 2017-12-30 12:38 | Psychiatric Consultation ---
Consultation Date of Consultation Dec 30, 2017. Identifying Data 47-year-old man with multiple medical conditions including diabetes, obesity, migraines, history of multiple falls, COPD, chronic neck and back pain, depression, anxiety, personality disorder and narcotic dependence, presented to the emergency department with altered mental status. He is admitted medically. We are requested to evaluate depression, altered mental status. Information is gathered from the patient, his significant other Estrella. Both are considered to be reliable. Chief Complaint "I do not know. ". History of Present Illness The patient is a 47-year-old gentleman well-known to our hospital for multiple ER visits and hospitalizations for the above-mentioned diagnoses. He was last seen by the undersigned in October 2016 after having come to the emergency room reporting suicidality and overdose on Windex which did not seem apparent at the time. He has had chronic struggles with opiate abuse and diversion and we have had him administratively discharged from our mental health unit for these reasons in the past. Per the patient's significant other Estrella who is at the bedside, the patient has been in his usual state of health, denying that he has been depressed or otherwise mood altered. At about 4:30 in the morning 2 mornings ago, he got out of bed to go to the bathroom. He was there for a long period of time and so she checked on him. He appeared confused. He then got up and was walking circles around the bedroom and not making sense and so she summoned 911. He says that he did not appear to be under the influence of an overdose. She reports that the ambulance crew counted the Suboxone pills and there were the appropriate number there. She does not have any idea what might have contributed to this episode. She does say they are having a period of increased stress with her daughter who lives with them and her 2 children. At the time I see the patient, he is lying on his back in bed. He is alert and cooperative. When I ask him what he remembers of the events leading to hospitalization, he talks about a TV show, and outdoor show in which somebody was being "cranked" and "I thought I knew what was going on". I explained that this made no sense to me and Estrella confirmed that made no sense to her either. We proceeded to orientation questions. He is oriented to person, place, and day of the week but thought it was 1917 and October. He denies taking an overdose of any kind of medications and actually has an honest conversation about now being on Suboxone for his opiate dependence and feels that his has been "a life changing event". Spencer confirms that he has been "a different person" since going on Suboxone. Query of the [place] PDM P site reveals no other prescriptions for narcotics beyond the Suboxone that he gets from Dr. Cameron sanchez. Just says that his mood lately has been "really good". He has some trouble with sleep, specifically difficulty falling asleep but denies that he is napping during the day. His appetite is "really good", and anxiety is "pretty good". He denies any self-injurious behaviors, denies suicidal thinking. Past Psychiatric History Current OP Treatment: no current treatment Prior OP Treatment: psychiatrist (Dr. Calvo) Prior Psych Hospitalizations: [facility], other ( [facility]) Suicide Attempts: Yes Past Medication Trials Wellbutrin, Cymbalta, Effexor Past Medical/Surgical History (1) Obesity (2) Chronic pain syndrome (3) COPD, moderate (4) Narcotic dependence (5) Diabetes (6) BPH (benign prostatic hypertrophy) Allergies Allergies: Coded Allergies: Acetaminophen (Unverified Allergy, Intermediate, "THEY TOLD ME I GET KIDNEY DISEASE", 12/29/17) Fentanyl (Verified Allergy, Intermediate, RASH/HIVES/SKIN REDNESS, 12/29/17 ) FROM PATCH ONLY Valproic Acid (Verified Adverse Reaction, Intermediate, PANCREATITIS, 12/29) Valproic Acid and Related (Verified Adverse Reaction, Intermediate, PANCREATITS, 12/29/17) Home Medications Scheduled Baclofen (Baclofen), 10 MG PO DAILY Buprenorphine Hcl-Naloxone Hcl (Suboxone 8-2 Mg), 1 TAB PO BID Clonidine HCl (Clonidine HCl), 0.1 MG PO BID Cyclobenzaprine Hcl (Flexeril), 10 MG PO HS Duloxetine Hcl (Cymbalta), 30 MG PO DAILY Gabapentin (Gabapentin), 1 TAB PO TID Omeprazole (Prilosec), 20 MG PO DAILY Potassium Chloride (Micro-K Ext Rel), 20 MEQ PO DAILY Scheduled PRN Albuterol Hfa (Ventolin Hfa), 2 PUFFS INH QID PRN for SOB/Wheezing Hydroxyzine HCl (Hydroxyzine HCl), 25 MG PO Q6 PRN for Itching Ketorolac (Toradol), 10 MG PO TID PRN for Pain Family History Cancer Diabetes mellitus Heart disease Kidney disease Kidney stones Lung disease History of Suicide: No History of Substance Abuse: No Psychiatric History: No Alcohol Use Alcohol Use In Past 12 Months: No Smoking Use Smoking Status: Current Every Day Smoker Substance History On Suboxone. Denies the use of other opiates, cannabis or illegal substances Personal History Lives in: [place] with [place], her daughter and daughters 2 children Childhood: Raised by both parents Education: graduated from high school Work History: on disability Relationship History: other (Has been with Estrella for 18 years) Spiritual Affiliation: Episcopal Legal History: none Psychological Trauma History: Denies Hx Traumatic Event Review of Systems Constitutional: other (confusion) Eyes: denies: no symptoms, as stated in HPI, eye pain, tearing, itching, redness, discharge, double vision, visual changes, blurred vision, photophobia, other ENT: denies: no symptoms reported, see HPI, ear pain, ear discharge, loss of hearing, tinnitus, nasal pain, nasal congestion, rhinorrhea, epistaxis, sore throat, stidor, throat swelling, mouth pain, mouth swelling, dental pain, gum swelling, other Cardiovascular: denies: no symptoms reported, see HPI, chest pain, chest tightness, chest pressure, diaphoresis, palpitations, syncope, other Respiratory: denies: no symptoms reported, see HPI, cough, orthopnea, short of breath, stridor, wheezing, sputum production, cyanosis, MAXWELL, PND, other Gastrointestinal: denies no symptoms reported, denies see HPI, denies abdominal pain, denies constipation, denies diarrhea, denies nausea, denies vomiting, denies other Genitourinary - Male: denies: no symptoms, see HPI, rash, amenorrhea, penile itching, penile discharge, testicular pain, testicular swelling, impotence, other Musculoskeletal: back pain (recently diagnoses "pinched nerve") Integumentary: denies no symptoms reported, denies see HPI, denies change in color, denies change in hair/nails, denies dryness, denies lesions, denies lumps , denies rash, denies other Neurologic: reports: other (disorientation) Endocrine: denies: no symptoms, as stated in HPI, cold intolerance, heat intolerance, hair changes, goiter, polydipsia, polyuria, skin changes, other Hematologic / Lymphatic: denies: no symptoms, as stated in HPI, abnormal clotting, adenopathy, anemia, easy bleeding, easy bruising, gums bleeding, petechiae, other Examination Vital Signs Vital Signs Past 12 Hours Date Time Temp Pulse Resp B/P (MAP) Pulse Ox O2 Delivery O2 Flow Rate FiO2 12/30/17 11:42 36.8 74 18 155/85 (108) 95 Room Air 12/30/17 08:00 Room Air 12/30/17 07:29 36.6 67 18 184/63 (103) 94 Room Air 12/30/17 04:00 Room Air Laboratory Results Last 24 Hours Test 12/29/17 12:59 12/29/17 13:05 12/29/17 13:12 12/29/17 18:21 Ammonia 14.8 umol/L Arterial Blood pH 7.41 Arterial Blood Partial Pressure CO2 45 mmHg Arterial Blood Partial Pressure O2 67 mm/Hg Arterial Blood HCO3 28 mmol/L Arterial Blood Oxygen Saturation 92.7 % Arterial Blood Base Excess 2.6 mEq/L Arterial Blood Gas Delivery RA Mariano Test POS Bedside Glucose 115 mg/dl 117 mg/dl Test 12/29/17 23:28 12/30/17 05:44 12/30/17 06:12 Bedside Glucose 119 mg/dl 122 mg/dl White Blood Count 8.76 K/uL Red Blood Count 5.16 M/uL Hemoglobin 14.8 g/dL Hematocrit 44.3 % Mean Corpuscular Volume 85.9 fL Mean Corpuscular Hemoglobin 28.7 pg Mean Corpuscular Hemoglobin Concent 33.4 g/dl RDW Standard Deviation 47.2 fL RDW Coefficient of Variation 15.0 % Platelet Count 179 K/uL Mean Platelet Volume 10.0 fL Sodium Level 143 mmol/L Potassium Level 4.0 mmol/L Chloride Level 109 mmol/L Carbon Dioxide Level 29 mmol/L Anion Gap 6.0 mmol/L Blood Urea Nitrogen 13 mg/dl Creatinine 1.05 mg/dl Est Creatinine Clear Calc Drug Dose 127.2 ml/min Estimated GFR () 97.5 Estimated GFR (Non- 84.1 BUN/Creatinine Ratio 12.4 Random Glucose 119 mg/dl Estimated Average Glucose 126 mg/dl Hemoglobin A1c 6.0 % Calcium Level 9.4 mg/dl Mental Examination During interview pt is: cooperative, other (disoriented to year and month) Appearance: appropriately groomed Eye contact is: good Motor behavior is: no abnormal motor movements Speech: normal in rate, rhythm & volume Affect: irritable Mood is: irritable Thought process: goal directed Thought content: other (mild disorientation) Suicidal thought are: denied Homicidal thoughts are: denied Hallucinations: denies auditory, denies visual Cognition: language grossly intact Intelligence estimated to be: average Insight: poor Judgement: poor Impression / Recommendations Impression 47 yo male with the previously mentioned medical and psychiatric conditions, admitted medically with AMS. He and SO Estrella report that he has not been depressed or making SI and that he has been doing well since getting on Suboxone. Drug screen negative for opiates (suboxone would not show up), BZDs, cannabis. It would not show a toxic ingestion of flexeril that he has an rx for. Estrella says that his Suboxone is accounted for and she did not think that he looked under the influence of an overdose at home. Whatever was going on, I highly doubt that it was related to depression or anxiety, but in view of his long history of abusing meds, cannot rule out that he took extra flexeril or other meds from home that would not show up on drug screen. He remains mildly disoriented and confused this AM and I do believe that it is genuine, and not put on. Estrella thinks that he about at his baseline and so have no reason to keep him in the hospital psychiatrically. I would encourage the primary team to send a discharge summary to Dr[facility] so that they are aware of this episode. Recommendations (1) Altered mental status 12/30 - No indication that he is suicidal or intentionally overdosed - Drug screen neg, but it is possible he took meds that don't show on our UDS - Psychiatrically stable for discharge - Recommend that [facility] receive a copy of the discharge summary. Dr. Flory Alfaro has personally been involved in the review of this case and development of recommendations.
--- NOTE | 2017-12-30 14:09 | Progress Note ---
Medicine Progress Note Date & Time of Visit: Dec 30, 2017 at ~ 13:30 . Subjective Admitted yesterday with altered mental status. More alert today. Doesn't have much recollection of yesterday's events. No recent changes in medications. Patient states that he has been taking meds as instructed. No fever. Chronic cough; no SOB. No chest pain. No nausea or vomiting. . Objective Last 8 Hrs Date Time Temp Pulse Resp B/P (MAP) Pulse Ox O2 Delivery O2 Flow Rate FiO2 12/30/17 12:00 Room Air 12/30/17 11:42 36.8 74 18 155/85 (108) 95 Room Air 12/30/17 08:00 Room Air 12/30/17 07:29 36.6 67 18 184/63 (103) 94 Room Air Physical Exam: General- lying in bed; no distress Lungs- cdiffuse mild wheezing; no respiratory distress Cardiovascular- RRR; no gallop appreciated; no JVD; no pretibial edema Abdomen- + bowel sounds, soft, nontender Extremities- no cyanosis; no calf tenderness Neuro- alert, mild confusion Skin- warm & dry . Laboratory Results: Last 24 Hours Test 12/29/17 18:21 12/29/17 23:28 12/30/17 05:44 12/30/17 06:12 Bedside Glucose 117 mg/dl 119 mg/dl 122 mg/dl White Blood Count 8.76 K/uL Red Blood Count 5.16 M/uL Hemoglobin 14.8 g/dL Hematocrit 44.3 % Mean Corpuscular Volume 85.9 fL Mean Corpuscular Hemoglobin 28.7 pg Mean Corpuscular Hemoglobin Concent 33.4 g/dl RDW Standard Deviation 47.2 fL RDW Coefficient of Variation 15.0 % Platelet Count 179 K/uL Mean Platelet Volume 10.0 fL Sodium Level 143 mmol/L Potassium Level 4.0 mmol/L Chloride Level 109 mmol/L Carbon Dioxide Level 29 mmol/L Anion Gap 6.0 mmol/L Blood Urea Nitrogen 13 mg/dl Creatinine 1.05 mg/dl Est Creatinine Clear Calc Drug Dose 127.2 ml/min Estimated GFR () 97.5 Estimated GFR (Non- 84.1 BUN/Creatinine Ratio 12.4 Random Glucose 119 mg/dl Estimated Average Glucose 126 mg/dl Hemoglobin A1c 6.0 % Calcium Level 9.4 mg/dl Test 12/30/17 12:49 Bedside Glucose 104 mg/dl Assessment & Plan ALTERED MENTAL STATUS Etiology uncertain. CT head negative. Patient is prescribed Suboxone and gabapentin for chronic pain. He indicates that the is taking medications as instructed. DM TYPE 2 Diet-controlled. Hgb A1C = 6. FBS = 122. CHRONIC PAIN Resume usual medications. VTE PROPHYLAXIS SQ heparin ordered. Ambulate. DISPOSITION Expected discharge to home. Family Medicine follow-up with Dr. Loredo. Suboxone management per Dr. Main. . Current Inpatient Medications: Current Inpatient Medications Medications (Trade) Dose Ordered Sig/Amalia Route Start Time Stop Time Status Last Admin Dose Admin Heparin Sodium (Porcine) (Heparin Sq 5000 Unit/0.5ml) 5,000 unit Q8 SQ 12/29/17 14:00 01/28/18 13:59 12/29/17 13:49 5,000 UNIT Magnesium Hydroxide (Milk Of Magnesia Susp) 30 ml Q12H PRN PO 12/29/17 10:45 01/28/18 10:44 Ondansetron HCl (Zofran Inj) 4 mg Q6H PRN IV 12/29/17 10:45 01/28/18 10:44 Albuterol/ Ipratropium (Duoneb) 3 ml QIDR INH 12/29/17 12:00 01/28/18 11:59 12/29/17 18:57 3 ML Glucose (Glucose 40% Gel) 15-30 GRAMS 15 GRAMS... UD PRN PO 12/29/17 12:00 01/28/18 11:59 Glucose (Glucose Chew Tab) 4-8 Tablets 4 Tabl... UD PRN PO 12/29/17 12:00 01/28/18 11:59 Dextrose (Dextrose 50% 50ML Syringe) 25-50ML OF 50% DW IV FOR... UD PRN IV 12/29/17 12:00 01/28/18 11:59 Glucagon (Glucagon Inj) 1 mg UD PRN SQ 12/29/17 12:00 01/28/18 11:59 Insulin Aspart (novoLOG ASPART) SLIDING SCALE If C... Q6 SC 12/29/17 18:00 01/28/18 16:29
[2017-12-30] MEDS ORDERED: BUPRENORPHINE/NALOXONE 8/2 MG TAB PO ONE (14:20)
[2017-12-30] MEDS ORDERED: NURSING DECISION MEDICATION ORDER SCH (15:30)
[2017-12-30] MEDS: KETOROLAC TROMETHAMINE 10 MG TAB PO PRN (19:32)
[2017-12-30] MEDS: CLONIDINE HCL 0.1 MG TAB PO SCH (20:10)
[2017-12-30] MEDS: BUPRENORPHINE/NALOXONE 8/2 MG TAB PO SCH (20:10)
[2017-12-30] MEDS: GABAPENTIN 800 MG TAB PO SCH (20:10)
[2017-12-30] MEDS: CYCLOBENZAPRINE HCL 10 MG TAB PO SCH (20:10)
[2017-12-30] MEDS: hydrOXYzine HCL 25 MG TAB PO PRN (22:48)
[2017-12-30] MEDS ORDERED: LORAZEPAM 0.5 MG TAB PO ONE (23:45)
[2017-12-31] VITALS (13 sets, daily range): BP systolic 116–137; BP diastolic 69–86; PULSE 78–95; TEMP 36.3–37; O2SAT 95–100
[2017-12-31] MEDS ORDERED: NURSING VERBAL MED ORDER ONE (02:00)
[2017-12-31] MEDS ORDERED: LORAZEPAM 0.5 MG TAB ONE (02:03)
[2017-12-31] MEDS ORDERED: LORAZEPAM 0.5 MG TAB PO ONE (02:15)
[2017-12-31] MEDS: ALBUTEROL HFA 8 GM INHALER INH PRN ×2 (03:57→12:32)
[2017-12-31] MEDS: HEPARIN SOD 5000 UNIT/0.5 ML CARP SQ SCH ×3 (05:52→21:31)
[2017-12-31] MEDS: ALBUT/IPRATROP 3MG/0.5MG NEB 3 ML VIAL INH SCH ×4 (07:37→18:49)
[2017-12-31] MEDS: INSULIN ASPART 100 UNITS/ML 3 ML PEN SC SCH ×4 (08:10→20:58)
[2017-12-31] MEDS: NICOTINE 14 MG/24 HR TDSY TD SCH (08:16)
[2017-12-31] MEDS: BUPRENORPHINE/NALOXONE 8/2 MG TAB PO SCH ×2 (08:16→20:29)
[2017-12-31] MEDS: hydrOXYzine HCL 25 MG TAB PO PRN ×2 (08:17→20:31)
[2017-12-31] MEDS: GABAPENTIN 800 MG TAB PO SCH ×3 (08:17→20:29)
[2017-12-31] MEDS: POTASSIUM CHLORIDE 10 MEQ TABCR PO SCH (08:17)
[2017-12-31] MEDS: PANTOprazole SOD 40 MG TAB PO SCH (08:17)
[2017-12-31] MEDS: KETOROLAC TROMETHAMINE 10 MG TAB PO PRN ×3 (08:18→19:52)
[2017-12-31] MEDS: CLONIDINE HCL 0.1 MG TAB PO SCH ×2 (08:18→20:29)
[2017-12-31] MEDS: BACLOFEN 10 MG TAB PO SCH (08:45)
[2017-12-31] MEDS: DULOXETINE (CYMBALTA) 30 MG CAP PO SCH (08:45)
--- NOTE | 2017-12-31 18:45 | DIAGNOSTIC IMAGING REPORT ---
CHEST 2 VIEWS ROUTINE CLINICAL HISTORY: 47 years-old Male presenting with cough, SOB. TECHNIQUE: PA and lateral views of the chest were obtained. COMPARISON: 12/29/2017. FINDINGS: Cardiac silhouette top normal in size. Lungs and pleural spaces clear. Osseous structures normal. Upper abdomen normal. IMPRESSION: 1. No acute cardiopulmonary disease. Electronically signed by: Joey Merida M.D. 12/31/2017 6:44 PM Dictated Date/Time: 12/31/2017 6:43 PM
[2017-12-31] MEDS: CYCLOBENZAPRINE HCL 10 MG TAB PO SCH (20:29)
--- NOTE | 2017-12-31 20:49 | Progress Note ---
Medicine Progress Note Date & Time of Visit: Dec 31, 2017 . Subjective Confusion improved. Experiencing intermittent blurred vision when ambulating. Congested cough, nonproductive. No fever. No chest pain. No nausea or vomiting. Wondering why he did have any labs drawn this morning. Requesting lorazepam for panic attacks. Requesting increased analgesics for chronic back pain. . Objective Last 8 Hrs Date Time Temp Pulse Resp B/P (MAP) Pulse Ox O2 Delivery O2 Flow Rate FiO2 12/31/17 19:34 37.0 90 20 137/69 (91) 95 Room Air 12/31/17 18:52 89 16 96 Room Air 12/31/17 16:03 36.9 95 16 121/71 (88) 95 Room Air 12/31/17 16:00 95 Room Air 12/31/17 15:22 92 18 95 Room Air Physical Exam: General- lying in bed; no distress Lungs-few scattered rhonchi, diffuse mild wheezing; no respiratory distress Cardiovascular- RRR; no gallop appreciated; no JVD; no pretibial edema Abdomen- + bowel sounds, soft, nontender Extremities- no cyanosis; no calf tenderness Neuro- alert, oriented Skin- warm & dry . Laboratory Results: Last 24 Hours Test 12/31/17 08:01 12/31/17 11:17 12/31/17 16:52 12/31/17 19:45 Bedside Glucose 102 mg/dl 141 mg/dl 123 mg/dl Test 12/31/17 20:37 Bedside Glucose 95 mg/dl Assessment & Plan ALTERED MENTAL STATUS Etiology uncertain. CT head negative. Patient is prescribed Suboxone and gabapentin for chronic pain. He indicates that the is taking medications as instructed. DM TYPE 2 Diet-controlled. Hgb A1C = 6. FBS = 102. CHRONIC PAIN Resumed usual medications. Best to avoid narcotic analgesics. Toradol as needed for severe pain. ANXIETY Patient has chronic anxiety. Requesting lorazepam for panic attacks. Best to avoid benzodiazepines. Describes panic attacks when sleeping. Consider sleep apnea; outpatient sleep study recommended if not recently done. COUGH Patient is a smoker and has a chronic cough, but feels that his cough is worse than baseline. Check chest x-ray and nasopharyngeal swab for influenza A/B. VTE PROPHYLAXIS SQ heparin ordered. Ambulate. DISPOSITION Expected discharge to home. Family Medicine follow-up with Dr. Loredo. Suboxone management per Dr. Main. . Current Inpatient Medications: Current Inpatient Medications Medications (Trade) Dose Ordered Sig/Amalia Route Start Time Stop Time Status Last Admin Dose Admin Heparin Sodium (Porcine) (Heparin Sq 5000 Unit/0.5ml) 5,000 unit Q8 SQ 12/29/17 14:00 01/28/18 13:59 12/31/17 12:38 5,000 UNIT Magnesium Hydroxide (Milk Of Magnesia Susp) 30 ml Q12H PRN PO 12/29/17 10:45 01/28/18 10:44 Ondansetron HCl (Zofran Inj) 4 mg Q6H PRN IV 12/29/17 10:45 01/28/18 10:44 Albuterol/ Ipratropium (Duoneb) 3 ml QIDR INH 12/29/17 12:00 01/28/18 11:59 12/31/17 18:49 3 ML Glucose (Glucose 40% Gel) 15-30 GRAMS 15 GRAMS... UD PRN PO 12/29/17 12:00 01/28/18 11:59 Glucose (Glucose Chew Tab) 4-8 Tablets 4 Tabl... UD PRN PO 12/29/17 12:00 01/28/18 11:59 Dextrose (Dextrose 50% 50ML Syringe) 25-50ML OF 50% DW IV FOR... UD PRN IV 12/29/17 12:00 01/28/18 11:59 Glucagon (Glucagon Inj) 1 mg UD PRN SQ 12/29/17 12:00 01/28/18 11:59 Albuterol (Ventolin Hfa Inhaler) 2 puffs QID PRN INH 12/30/17 14:15 01/29/18 14:14 12/31/17 12:32 2 PUFFS Baclofen (Lioresal Tab) 10 mg DAILY PO 12/31/17 09:00 01/30/18 08:59 12/31/17 08:45 10 MG Clonidine HCl (Catapres Tab) 0.1 mg BID PO 12/30/17 21:00 01/29/18 20:59 12/31/17 20:29 0.1 MG Cyclobenzaprine HCl (Flexeril Tab) 10 mg HS PO 12/30/17 21:00 01/29/18 20:59 12/31/17 20:29 10 MG Duloxetine HCl (Cymbalta Cap) 30 mg DAILY PO 12/31/17 09:00 01/30/18 08:59 12/31/17 08:45 30 MG Gabapentin (Neurontin Tab) 800 mg TID PO 12/30/17 21:00 01/29/18 20:59 12/31/17 20:29 800 MG Hydroxyzine HCl (Vistaril Tab) 25 mg Q6 PRN PO 12/30/17 14:15 01/29/18 14:14 12/31/17 20:31 25 MG Potassium Chloride (Klor-Con M10) 20 meq DAILY PO 12/31/17 09:00 01/30/18 08:59 12/31/17 08:17 20 MEQ Buprenorphine/ Naloxone (Suboxone 8/2MG Tab) 1 tab BID PO 12/30/17 21:00 01/29/18 20:59 12/31/17 20:29 1 TAB Pantoprazole Sodium (Protonix Tab) 40 mg QAM PO 12/31/17 09:00 01/30/18 08:59 12/31/17 08:17 40 MG Insulin Aspart (novoLOG ASPART) SLIDING SCALE If C... ACHS SC 12/30/17 16:30 01/28/18 17:59 12/31/17 17:36 4 UNITS Nicotine (Nicoderm Cq 14MG Patch) 1 patch QAM TD 12/31/17 09:00 01/30/18 08:59 12/31/17 08:16 1 PATCH Miscellaneous (Remove Nicoderm Patch) 1 ea HS N/A 12/31/17 21:00 01/30/18 20:59 Ketorolac Tromethamine (Toradol Tab) 10 mg Q6H PRN PO 12/31/17 19:00 01/04/18 14:14 12/31/17 19:52 10 MG
[2017-12-31 20:54] LABS: INFLUENZA A PCR Neg for Influ A (NEG); INFLUENZA B PCR Neg for Influ B (NEG)
[2018-01-01] VITALS (8 sets, daily range): BP systolic 121–148; BP diastolic 62–86; PULSE 66–88; TEMP 36.4–36.8; O2SAT 93–97
[2018-01-01] MEDS: KETOROLAC TROMETHAMINE 10 MG TAB PO PRN ×3 (02:01→14:32)
[2018-01-01] MEDS: ALBUT/IPRATROP 3MG/0.5MG NEB 3 ML VIAL INH SCH ×4 (02:54→14:41)
[2018-01-01] MEDS: hydrOXYzine HCL 25 MG TAB PO PRN (03:15)
[2018-01-01] MEDS ORDERED: KETOROLAC TROMETHAMINE 10 MG TAB PO STA (03:44)
[2018-01-01] MEDS: HEPARIN SOD 5000 UNIT/0.5 ML CARP SQ SCH ×3 (05:12→13:39)
[2018-01-01] MEDS: BUPRENORPHINE/NALOXONE 8/2 MG TAB PO SCH (07:51)
[2018-01-01] MEDS: POTASSIUM CHLORIDE 10 MEQ TABCR PO SCH (07:52)
[2018-01-01] MEDS: CLONIDINE HCL 0.1 MG TAB PO SCH (07:52)
[2018-01-01] MEDS: BACLOFEN 10 MG TAB PO SCH (07:52)
[2018-01-01] MEDS: PANTOprazole SOD 40 MG TAB PO SCH (07:52)
[2018-01-01] MEDS: NICOTINE 14 MG/24 HR TDSY TD SCH (07:52)
[2018-01-01] MEDS: GABAPENTIN 800 MG TAB PO SCH ×2 (07:52→13:38)
[2018-01-01] MEDS: DULOXETINE (CYMBALTA) 30 MG CAP PO SCH (07:53)
[2018-01-01] MEDS: INSULIN ASPART 100 UNITS/ML 3 ML PEN SC SCH ×3 (08:19→17:13)
[2018-01-01] MEDS ORDERED: SUMATRIPTAN SUCCINATE 50 MG TAB PO PRN (12:00)
[2018-01-01] MEDS ORDERED: LORAZEPAM 2 MG TAB PO PRN (14:15)
[2018-01-01] MEDS ORDERED: LORAZEPAM 2 MG TAB ONE (14:28)
--- NOTE | 2018-01-01 15:39 | DIAGNOSTIC IMAGING REPORT ---
Brain MRI WITHOUT CONTRAST HISTORY: confusion, headache, visual changes TECHNIQUE: Multiplanar multisequence MRI of the brain was performed without the use of contrast. COMPARISON STUDY: Head CT 12/29/2017. Brain MRI 02/26/2016 FINDINGS: There are no areas of restricted diffusion to suggest acute infarction. The midline structures are intact. Mild mucosal thickening within the paranasal sinuses. Slight increase in size in the 4.8 x 1.6 cm right occipital scalp fat-containing lesion. This previously measured 3.6 x 1.4 cm. The mastoid air cells are clear. The ventricles and sulci are within normal limits for age. There is no mass, hematoma, midline shift. The major vascular flow-voids at the skull base are well maintained. IMPRESSION: No acute intracranial abnormality. Increase in size in the 4.8 X 1.6 cm right occipital scalp fat-containing lesion. This favors a lipoma. Electronically signed by: Vidal Keller M.D. 01/01/2018 3:37 PM Dictated Date/Time: 01/01/2018 3:32 PM
--- NOTE | 2018-01-01 17:38 | Progress Note ---
Medicine Progress Note Date & Time of Visit: Jan 01, 2018 at 14:00 . Subjective Generally doing better. Experiencing headache like his typical migraines; requested a dose of Imitrex. Concerned about intermittent blurred vision. Persistent nonproductive cough. No fever. Ambulating. Chronic neck/back pain. . Objective Last 8 Hrs Date Time Temp Pulse Resp B/P (MAP) Pulse Ox O2 Delivery O2 Flow Rate FiO2 01/01/18 16:00 Room Air 01/01/18 15:44 36.8 82 18 121/62 (81) 97 Room Air 01/01/18 11:13 73 18 97 Room Air Physical Exam: General- lying in bed; no distress Lungs- diffuse mild wheezing; no respiratory distress Cardiovascular- RRR; no gallop appreciated; no JVD; no pretibial edema Abdomen- + bowel sounds, soft, nontender Extremities- no cyanosis; no calf tenderness Neuro- alert, oriented; PERRL, EOMI; no facial palsy; no dysarthria; motor strength upper and lower extremities grossly intact Skin- warm & dry . Laboratory Results: Last 24 Hours Test 12/31/17 19:45 12/31/17 20:37 01/01/18 07:24 01/01/18 11:19 Influenza Type A (RT-PCR) Neg for Influ A Influenza Type B (RT-PCR) Neg for Influ B Bedside Glucose 95 mg/dl 96 mg/dl 92 mg/dl Test 01/01/18 16:23 Bedside Glucose 111 mg/dl Assessment & Plan ALTERED MENTAL STATUS Etiology uncertain. CT head negative. Urine tox screen negative. Patient is prescribed Suboxone and gabapentin for chronic pain. He indicates that he is taking medications as instructed. Intermittent blurred vision. Check MRI scan. BRONCHITIS Experiencing nonproductive cough and wheezing. No infiltrates on chest x-ray. Nasopharyngeal swab for influenza negative. Probable bronchitis-treat with course of steroids and doxycycline. DM TYPE 2 Diet-controlled. Hgb A1C = 6. FBS = 96. CHRONIC PAIN Resumed usual medications once mental status improved. Best to avoid narcotic analgesics. Toradol as needed for severe pain. ANXIETY Patient has chronic anxiety. Requesting lorazepam for panic attacks. Psychiatry consult. Best to avoid benzodiazepines. Describes panic attacks when sleeping. Consider sleep apnea; outpatient sleep study recommended if not recently done. SMOKING Importance of smoking cessation discussed. Patient asked to discuss further with PCP. VTE PROPHYLAXIS SQ heparin ordered. Ambulate. DISPOSITION Expected discharge to home. Family Medicine follow-up with Dr. Loredo. Suboxone management per Dr. Main. ADDENDUM: MRI of brain negative. Patient requested to be discharged to home. [place] quer[place]. With one exception, recent prescriptions for Suboxone have been prescribed by Dr. Main. Discharged on usual regimen for chronic pain. . Current Inpatient Medications: Current Inpatient Medications Medications (Trade) Dose Ordered Sig/Amalia Route Start Time Stop Time Status Last Admin Dose Admin Heparin Sodium (Porcine) (Heparin Sq 5000 Unit/0.5ml) 5,000 unit Q8 SQ 12/29/17 14:00 01/28/18 13:59 01/01/18 13:39 5,000 UNIT Magnesium Hydroxide (Milk Of Magnesia Susp) 30 ml Q12H PRN PO 12/29/17 10:45 01/28/18 10:44 Ondansetron HCl (Zofran Inj) 4 mg Q6H PRN IV 12/29/17 10:45 01/28/18 10:44 Albuterol/ Ipratropium (Duoneb) 3 ml QIDR INH 12/29/17 12:00 01/28/18 11:59 01/01/18 11:12 3 ML Glucose (Glucose 40% Gel) 15-30 GRAMS 15 GRAMS... UD PRN PO 12/29/17 12:00 01/28/18 11:59 Glucose (Glucose Chew Tab) 4-8 Tablets 4 Tabl... UD PRN PO 12/29/17 12:00 01/28/18 11:59 Dextrose (Dextrose 50% 50ML Syringe) 25-50ML OF 50% DW IV FOR... UD PRN IV 12/29/17 12:00 01/28/18 11:59 Glucagon (Glucagon Inj) 1 mg UD PRN SQ 12/29/17 12:00 01/28/18 11:59 Albuterol (Ventolin Hfa Inhaler) 2 puffs QID PRN INH 12/30/17 14:15 01/29/18 14:14 12/31/17 12:32 2 PUFFS Baclofen (Lioresal Tab) 10 mg DAILY PO 12/31/17 09:00 01/30/18 08:59 01/01/18 07:52 10 MG Clonidine HCl (Catapres Tab) 0.1 mg BID PO 12/30/17 21:00 01/29/18 20:59 01/01/18 07:52 0.1 MG Cyclobenzaprine HCl (Flexeril Tab) 10 mg HS PO 12/30/17 21:00 01/29/18 20:59 12/31/17 20:29 10 MG Duloxetine HCl (Cymbalta Cap) 30 mg DAILY PO 12/31/17 09:00 01/30/18 08:59 01/01/18 07:53 30 MG Gabapentin (Neurontin Tab) 800 mg TID PO 12/30/17 21:00 01/29/18 20:59 01/01/18 13:38 800 MG Hydroxyzine HCl (Vistaril Tab) 25 mg Q6 PRN PO 12/30/17 14:15 01/29/18 14:14 01/01/18 03:15 25 MG Potassium Chloride (Klor-Con M10) 20 meq DAILY PO 12/31/17 09:00 01/30/18 08:59 01/01/18 07:52 20 MEQ Buprenorphine/ Naloxone (Suboxone 8/2MG Tab) 1 tab BID PO 12/30/17 21:00 01/29/18 20:59 01/01/18 07:51 1 TAB Pantoprazole Sodium (Protonix Tab) 40 mg QAM PO 12/31/17 09:00 01/30/18 08:59 01/01/18 07:52 40 MG Insulin Aspart (novoLOG ASPART) SLIDING SCALE If C... ACHS SC 12/30/17 16:30 01/28/18 17:59 01/01/18 17:13 5 UNITS Nicotine (Nicoderm Cq 14MG Patch) 1 patch QAM TD 12/31/17 09:00 01/30/18 08:59 01/01/18 07:52 1 PATCH Miscellaneous (Remove Nicoderm Patch) 1 ea HS N/A 12/31/17 21:00 01/30/18 20:59 Ketorolac Tromethamine (Toradol Tab) 10 mg Q6H PRN PO 12/31/17 19:00 01/04/18 14:14 01/01/18 14:32 10 MG Prednisone (PredniSONE TAB) 40 mg DAILY PO 01/02/18 09:00 02/01/18 08:59 Doxycycline Hyclate (Vibramycin Cap) 100 mg BID PO 01/01/18 21:00 01/08/18 20:59
--- NOTE | 2018-01-01 17:49 | Discharge Instructions ---
Discharge Instructions Date of Service Jan 01, 2018. Admission Reason for Admission: confusion . Discharge Discharge Diagnosis / Problem: confusion, bronchitis Discharge Goals Goal(s): Improve function, Improve disease control Activity Recommendations Activity Limitations: resume your previous activity . Instructions / Follow-Up Instructions / Follow-Up APPOINTMENTS: FAMILY MEDICINE 01/04/2018 10:00 AM Tesha Loredo MD [employer] MANAG[employer] Dr. Main. OTHER INSTRUCTIONS: You appear to have a bronchitis. No sign of pneumonia on chest x-ray. Test for flu was negative. Take Medrol Dosepack as instructed. Take doxycycline 100 mg twice a day for 7 days. (prescriptions sent to your pharmacy) It would be great if you could quit smoking. Please discuss further with Dr. Loredo. Last sleep study that I could find was in 2004. Might be a good idea to check again. Please discuss with Dr. Loredo. Seek medical attention if you have: * temperature above 101 * chest pain or trouble breathing * abdominal pain, nausea, vomiting * diarrhea, dark stools or bloody stools * any unanswered questions or concerns Call 911 if symptoms are severe. Call if you have any questions or problems. You can reach a [facility] hospitalist on duty at [facility] 24 hours a day by calling [phone]. Please take good care of yourself. Lit Blanco . Current Hospital Diet Patient's current hospital diet: AHA Diet (Heart Healthy), Diabetes Type 2 Diet Discharge Diet Recommended Diet: AHA Diet (Heart Healthy), Diabetes Type 2 Diet Procedures Procedures Performed: CT and MRI brain- no sign of stroke chest x-ray- no sign of pneumonia flu test- negative Pending Studies Studies pending at discharge: no Laboratory Results Hemoglobin A1c Test 12/30/17 06:12 Range/Units Estimated Average Glucose 126 mg/dl Hemoglobin A1c 6.0 H 4.5-5.6 % Medical Emergencies . Who to Call and When: Medical Emergencies: If at any time you feel your situation is an emergency, please call 911 immediately. . Non-Emergent Contact Non-Emergency issues call your: Primary Care Provider, Hospital Doctor . . "Provider Documentation" section prepared by iLt Blanco. . [place] Drug Monitoring Program Search Results: patient reviewed within database, see additional documentation
[2018-01-01] MEDS ORDERED: DOXY-300 PO (17:51)
[2018-01-01] MEDS ORDERED: METH4PAK PO (17:51)
[2018-01-01] MEDS ORDERED: DOXYCYCLINE HYCLATE 100 MG CAP PO SCH (21:00)
--- NOTE | 2018-01-03 02:20 | Discharge Summary ---
Discharge Summary Date of Service Jan 03, 2018. Discharge Summary Admission Date: Dec 29, 2017 at 10:30 Discharge Date: Jan 01, 2018 Discharge Disposition: Home Principal Diagnosis: altered mental status OTHER ACUTE / SECONDARY DIAGNOSES: bronchitis . Secondary Diagnoses/Problems: Chronic and Resolved Medical Problems: (1) Anxiety and depression Status: Chronic (2) Atypical chest pain Status: Resolved (3) BPH (benign prostatic hypertrophy) Status: Chronic (5) Chronic pain syndrome Status: Chronic (7) COPD, moderate Status: Chronic (8) Diabetes type 2 Status: Chronic (14) Narcotic dependence Status: Chronic (15) Obesity Status: Chronic (17) Personality disorder Status: Chronic (18) Pulmonary embolism, history of Status: Chronic Surgical Problems: (1) History of back surgery Status: Chronic . Procedures: CT head MRI brain . Pending Studies/Follow-Up: Please arrange for outpatient sleep study re: possible sleep apnea. . Medication Reconciliation New Medications: Doxycycline (Monohydrate) (Doxycycline) 100 Mg Cap 100 MG PO BID, #14 CAP Methylprednisolone (Medrol Dosepak) 4 Mg Hector 0 PO DAILY, #1 PKT Continued Medications: Albuterol Hfa (Ventolin Hfa) 200 Puffs/61700 Mcg Aers 2 PUFFS INH QID PRN for SOB/Wheezing Baclofen (Baclofen) 10 Mg Tab 10 MG PO DAILY Buprenorphine Hcl-Naloxone Hcl (Suboxone 8-2 Mg) 1 Sub Sub 1 TAB PO BID Clonidine HCl (Clonidine HCl) 0.1 Mg Tab 0.1 MG PO BID Cyclobenzaprine Hcl (Flexeril) 10 Mg Tab 10 MG PO HS, #21 TAB Duloxetine Hcl (Cymbalta) 30 Mg Cap 30 MG PO DAILY, CAP Pt hasn't been taking. Gabapentin (Gabapentin) 800 Mg Tab 1 TAB PO TID Hydroxyzine HCl (Hydroxyzine HCl) 25 Mg Tab 25 MG PO Q6 PRN for Itching Ketorolac (Toradol) 10 Mg Tab 10 MG PO TID PRN for Pain, TAB Omeprazole (Prilosec) 20 Mg Cap 20 MG PO DAILY for Heartburn, CAP Potassium Chloride (Micro-K Ext Rel) 10 Meq Capcr 20 MEQ PO DAILY TWO 10 MEQ TABLETS DAILY Admission Information HPI (per Admitting provider): Pt is 47 y/o M with PMH mood disorder, depression/anxiety, COPD, DM II-diet controlled, chronic back pain, chronic headaches, tobacco use presented to ER via EMS for altered mental status. History obtained from patient's girlfriend as patient somnolent and not speaking. Patient's girlfriend states patient was in usual health yesterday. She states patient got up this morning and stated that he had to go to the bathroom. She reports he was in the bathroom for a long time so she went to check on him and he was sitting there and looked confused. He then got up and was walking around in circles in the house acting confused. Girlfriend reports patient was speaking at that time and was telling her to "stop it" as she was asking him to sit down. EMS was called and patient transported to ER. In ER patient nonverbal, awakens to painful stimuli. Patient's girlfriend reports has not seen him consuming any alcohol. She did not see him consuming medications last night or this morning. She reports that he has been "doing well" for the past couple of months and his moods have been stable. She reports patient complains of chronic back pain which she did state he had yesterday however reports this is not unusual for patient. Also reported yesterday as having some nausea and girlfriend reports patient with chronic intermittent nausea and abdominal pains in the past.Girlfriend reports follows with Dr. Cook for his Suboxone. And had appointment with Dr. Cook yesterday. Patient gets Suboxone Rx in 1 week supplies. Girlfriend states has not noticed any vomiting or diarrhea or noted recent illnesses. This provider called [facility] pharmacy in [place] as PDMP is not working currently. Patient had once a week supply of Suboxone filled yesterday. Had Flexeril prescription last filled 12/09/17. Has not had Cymbalta Rx filled for couple months. Gabapentin Rx filled 12/15/17 for 30 day supply. Hydroxyzine Rx filled on 11/19/17 for 40 pills. Ketorolac Rx filled on 12/27/17. Meloxicam Rx. . Patient used to be on Ativan has not had that Rx filled since July 2017. Used to be on trazodone at bedtime, Rx has not been filled since 09/2017. Topamax 50 mg twice daily Rx has not been filled since 10/2017. Physical Exam (per Admitting): General Appearance: no apparent distress, + obese, + pertinent finding ( Lying supine in bed with eyes closed. Maintaining own airway. Patient coughs and sits up in bed and opens eyes and looks at his provider then returned to supine position with eyes closed. Patient opens eyes with firm tactile stimuli. Patient not talking and not otherwise interacting.) Head: normocephalic, atraumatic Eyes: normal inspection, PERRL, sclerae normal, + pertinent finding (No pupil dilation or restriction noted) ENT: + pertinent finding (Mucous membranes moist) Neck: supple, no JVD, trachea midline Respiratory/Chest: no respiratory distress, no accessory muscle use, + decreased breath sounds, + wheezing (Scattered throughout, no rales or rhonchi noted) Cardiovascular: regular rate, rhythm, no murmur, normal peripheral pulses Abdomen/GI: normal bowel sounds, non tender, soft Extremities/Musculoskelatal: + pertinent finding (No pitting edema noted, no significant erythema.) Neurologic/Psych: + pertinent finding (Lying supine in bed with eyes closed. Maintaining own airway. Patient coughs and sits up in bed and opens eyes and looks at his provider then returned to supine position with eyes closed. Patient opens eyes with firm tactile stimuli. Patient not talking and not otherwise interacting.) Skin: normal color, warm/dry Hospital Course ALTERED MENTAL STATUS Presented with lethargy and confusion. Etiology uncertain. CT head negative. Urine tox screen negative. Patient is prescribed Suboxone and gabapentin for chronic pain. He indicates that he is taking medications as instructed. Intermittent blurred vision. Check MRI scan. BRONCHITIS Experiencing nonproductive cough and wheezing. No infiltrates on chest x-ray. Nasopharyngeal swab for influenza negative. Probable bronchitis-treat with course of steroids and doxycycline. DM TYPE 2 Diet-controlled. Hgb A1C = 6. FBS = 96. CHRONIC PAIN Resumed usual medications once mental status improved. Best to avoid narcotic analgesics. Toradol as needed for severe pain. ANXIETY Patient has chronic anxiety. Requesting lorazepam for panic attacks. Psychiatry consult. Best to avoid benzodiazepines. Describes panic attacks when sleeping. Consider sleep apnea; outpatient sleep study recommended if not recently done. SMOKING Importance of smoking cessation discussed. Patient asked to discuss further with PCP. VTE PROPHYLAXIS SQ heparin ordered. Ambulate. DISPOSITION Expected discharge to home. Family Medicine follow-up with Dr. Loredo. Suboxone management per Dr. Main. ADDENDUM: MRI of brain negative. Patient requested to be discharged to home. [place] PDMP queried. With one exception, recent prescriptions for Suboxone have been prescribed by Dr. Main. Discharged on usual regimen for chronic pain. . Total time spent on discharge = 35 min. This includes examination of the patient, discharge planning, medication reconciliation, and communication with other providers. . Discharge Instructions Date of Service Jan 01, 2018. Admission Reason for Admission: confusion . Discharge Discharge Diagnosis / Problem: confusion, bronchitis Discharge Goals Goal(s): Improve function, Improve disease control Activity Recommendations Activity Limitations: resume your previous activity . Instructions / Follow-Up Instructions / Follow-Up APPOINTMENTS: FAMILY MEDICINE 01/04/2018 10:00 AM Tesha Loredo MD [employer] MANAGEMENT Dr. Main. OTHER INSTRUCTIONS: You appear to have a bronchitis. No sign of pneumonia on chest x-ray. Test for flu was negative. Take Medrol Dosepack as instructed. Take doxycycline 100 mg twice a day for 7 days. (prescriptions sent to your pharmacy) It would be great if you could quit smoking. Please discuss further with Dr. Loredo. Last sleep study that I could find was in 2004. Might be a good idea to check again. Please discuss with Dr. Loredo. Seek medical attention if you have: * temperature above 101 * chest pain or trouble breathing * abdominal pain, nausea, vomiting * diarrhea, dark stools or bloody stools * any unanswered questions or concerns Call 911 if symptoms are severe. Call if you have any questions or problems. You can reach a [facility] hospitalist on duty at [facility] 24 hours a day by calling [phone]. Please take good care of yourself. Lit Blanco . Current Hospital Diet Patient's current hospital diet: AHA Diet (Heart Healthy), Diabetes Type 2 Diet Discharge Diet Recommended Diet: AHA Diet (Heart Healthy), Diabetes Type 2 Diet Procedures Procedures Performed: CT and MRI brain- no sign of stroke chest x-ray- no sign of pneumonia flu test- negative Pending Studies Studies pending at discharge: no Laboratory Results Hemoglobin A1c Test 12/30/17 06:12 Range/Units Estimated Average Glucose 126 mg/dl Hemoglobin A1c 6.0 H 4.5-5.6 % Medical Emergencies . Who to Call and When: Medical Emergencies: If at any time you feel your situation is an emergency, please call 911 immediately. . Non-Emergent Contact Non-Emergency issues call your: Primary Care Provider, Hospital Doctor . . "Provider Documentation" section prepared by Lit Blanco. . [place] Drug Monitoring Program Search Results: patient reviewed within database, see additional documentation Additional Copies To Tesha Loredo M.D. (MEDICAL)
== END 2018-01-01 18:10 | disposition home or self-care (01) | DRG 948 ==
LOC: EDBD 07:34 → C.EDB 07:36 → C.MED 10:30 → ENRESERV 10:58 → C.MS2W 01-01 08:58
PROVIDERS: ADMIT Internal Medicine; ATTEND Hospitalist
DX: R41.82 Altered mental status, unspecified (principal); J44.0 Chronic obstructive pulmonary disease with (acute) lower respiratory infection; J40 Bronchitis, not specified as acute or chronic; H53.8 Other visual disturbances; F41.9 Anxiety disorder, unspecified; R51 Headache; G89.29 Other chronic pain; E11.9 Type 2 diabetes mellitus without complications; F32.9 Major depressive disorder, single episode, unspecified; E66.9 Obesity, unspecified; F17.200 Nicotine dependence, unspecified, uncomplicated; Z79.891 Long term (current) use of opiate analgesic; Z79.899 Other long term (current) drug therapy; Z83.3 Family history of diabetes mellitus; Z88.8 Allergy status to other drugs, medicaments and biological substances

== ENCOUNTER 2018-09-15 17:01 | Inpatient (IN) ==
[2018-09-15] MEDS ORDERED: ALBUT/IPRATROP 3MG/0.5MG NEB 3 ML VIAL INH STA (17:24)
[2018-09-15] MEDS ORDERED: methylPREDNISolone 125 MG/2 ML VIAL IV STA (17:24)
--- NOTE | 2018-09-15 17:51 | XRay Report ---
XR chest 1V portable CLINICAL HISTORY: 48 years-old Male presenting with Dyspnea. TECHNIQUE: Portable upright AP view of the chest was obtained. COMPARISON: 07/05/2018. FINDINGS: Cardiac silhouette top normal in size. Mild pulmonary vascular prominence. No focal opacity. No large effusion or pneumothorax. Osseous structures normal. Upper abdomen normal. IMPRESSION: 1. No acute cardiopulmonary disease. Electronically signed by: Joey Merida M.D. 09/15/2018 5:50 PM
[2018-09-15 19:28] LABS: Basophils # (auto) 0.08 K/uL (0-0.2); Basophils % (auto) 0.6 %; Eosinophils % (auto) 0.7 %; Hematocrit (blood only) 41.8 % (42-52); Hemoglobin 13.5 g/dL (14.0-18.0); Immature Granulocytes # (auto) 0.14 K/uL (0.00-0.02); Lymphocytes # (auto) 2.15 K/uL (1.2-3.4); Lymphocytes % (auto) 14.8 %; Mean Corpuscular Hgb Conc 32.3 g/dL (32-36); Mean Corpuscular Volume 86.7 fL (80-100); Mean Platelet Volume 11.2 fL (7.4-10.4); Monocytes # (auto) 1.17 K/uL (0.11-0.59); Monocytes % (auto) 8.1 %; Neutrophils # (auto) 10.86 K/uL (1.4-6.5); Neutrophils % (auto) 74.8 %; Platelet Count 208 K/uL (130-400); RDW Coefficient of Variation 15.4 % (11.5-14.5); RDW Standard Deviation 49.4 fL (36.4-46.3); Red Blood Count 4.82 M/uL (4.7-6.1)
[2018-09-15 19:40] LABS: Influenza A virus by PCR Neg for Influ A (Neg); Influenza B virus by PCR Neg for Influ B (Neg)
[2018-09-15 20:03] LABS: Partial Thromboplastin Ratio 0.9; Partial Thromboplastin Time 23.3 Seconds (21.0-31.0); Prothrombin Time 10.1 Seconds (9.0-12.0)
[2018-09-15 20:08] LABS: Alanine Aminotransferase 24 U/L (12-78); Albumin Level 3.3 gm/dl (3.4-5.0); Aspartate Aminotransferase 12 U/L (15-37); BUN Creatinine Ratio 22.5 (10-20); Blood Urea Nitrogen 24 mg/dl (7-18); Calcium 9.5 mg/dl (8.5-10.1); Carbon Dioxide 36 mmol/L (21-32); Chloride 101 mmol/L (98-107); Creatinine Clr Calc Pharmacy 144.9 ml/min; Est GFR (African American) 94.6; Est GFR (Non-African American) 81.7; Glucose 111 mg/dl (70-99); Potassium 3.5 mmol/L (3.5-5.1); Sodium 140 mmol/L (136-145)
[2018-09-15 20:13] LABS: Albumin Globulin Ratio 0.8 (0.9-2); Alkaline Phosphatase 111 U/L (45-117); Bilirubin,Total 0.5 mg/dl (0.1-1); Globulin 4.2 gm/dl (2.5-4.0); Total Protein 7.5 gm/dl (6.4-8.2); Troponin I < 0.015 ng/ml (0-0.045)
[2018-09-15] MEDS ORDERED: TRAMADOL HCL 50 MG TABLET PO STA (20:19)
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
[2018-09-15] MEDS ORDERED: ONDANSETRON INJ 2 MG/ML 2 ML VIAL IV PRN (22:34)
[2018-09-15] MEDS ORDERED: NITROGLYCERIN SL 0.4 MG/TAB TAB SL PRN (22:34)
[2018-09-15] MEDS ORDERED: TRAZODONE HCL 50 MG TAB PO PRN (22:34)
[2018-09-15] MEDS ORDERED: POLYETHYLENE (MIRALAX) 17 GM PACK PO PRN (22:34)
[2018-09-15] MEDS ORDERED: ALBUTEROL HFA 8 GM INHALER INH PRN (22:34)
[2018-09-15] MEDS: ALBUT/IPRATROP 3MG/0.5MG NEB 3 ML VIAL NEB PRN (23:31)
[2018-09-15] MEDS: cloNIDine HCl 0.1 MG TAB PO SCH (23:37)
[2018-09-15] MEDS: GABAPENTIN 600 MG TAB PO SCH (23:39)
[2018-09-15] MEDS: GABAPENTIN 400 MG CAP PO SCH (23:39)
[2018-09-15] MEDS: DOXYCYCLINE HYCLATE 100 MG CAP PO SCH (23:39)
[2018-09-15] MEDS: DULOXETINE HCL 30 MG CAP PO SCH (23:40)
[2018-09-15] MEDS: NICOTINE 21 MG/24 HR TDSY TD SCH (23:40)
[2018-09-15] MEDS ORDERED: BUPRENORPHINE/NALOXONE 8/2 MG TAB SL STA (23:53)
[2018-09-16] MEDS: TRAMADOL HCL 50 MG TABLET PO PRN ×5 (00:06→22:07)
--- NOTE | 2018-09-16 00:14 | History and Physical Report ---
DATE OF ADMISSION: 09/15/2018 CHIEF COMPLAINT: Shortness of breath. HISTORY OF PRESENT ILLNESS: This is a 48-year-old male with past medical history significant for chronic pain syndrome, obstipation, history of gallbladder stones, moderate COPD, depression with anxiety, tobacco disorder, hypothyroidism, history of pulmonary embolism, history of drug overdose, morbid obesity, opiate dependence and on maintenance therapy, presents with shortness of breath. The patient recently had couple of admissions for COPD exacerbation, lower extremity cellulitis, and last admission he was discharged to [facility]. Currently at home and was recently seen by [facility] PCP and was planned to arrange for outpatient pulmonary. The patient says he always has some shortness of breath but in the last few days this was getting worse. He is having dry cough, feeling chills, has chronic headaches. No blurred vision, no runny nose, no sore throat, no difficulty swallowing. Appetite is not great. Says has some chest pain from his cough, has some nausea, no abdominal pain. Normal bowel and bladder movements. No blood in the stools, no blood in the urine, no burning micturition. His lower extremity edema which is getting better. Currently, sitting in chair comfortably and hemodynamically stable. ALLERGIES: DEPAKOTE, FENTANYL, TYLENOL. PAST MEDICAL HISTORY: As mentioned above. PAST SURGICAL HISTORY: Colonoscopy, EGDs, endoscopic ultrasound, foot surgery, repair of the finger tendon. MEDICATIONS: The patient currently on albuterol 2 puffs every 4 hours p.r.n., DuoNebs 4 times a day, Neurontin 1000 mg t.i.d., hydroxyzine 25 mg p.o. q. 6 hours p.r.n., ketorolac 10 mg 4 times daily as needed and does not use more than 5 days, Medrol Dosepak, prednisone tapering dose, Flonase 2 sprays to each nostril daily, Lasix 40 mg p.o. daily, MiraLax 17 g daily, baclofen 10 mg p.o. daily, clonidine 0.1 mg p.o. b.i.d., Flexeril 10 mg p.o. at bedtime, omeprazole 20 mg p.o. daily, trazodone 50 mg p.o. at bedtime p.r.n., Cymbalta 30 mg p.o. daily, Suboxone as directed. FAMILY HISTORY: Significant for sister has breast cancer. Mother has back disorder. Father has aneurysm. SOCIAL HISTORY: History of smoking, says he still smokes here and there. No alcohol. Opiate dependence. . REVIEW OF SYMPTOMS: As per HPI. Rest of review of symptoms negative. PHYSICAL EXAMINATION: GENERAL: The patient is morbidly obese, not in acute distress. VITAL SIGNS: Temperature 36.6, pulse 78, respiratory rate 18, blood pressure 145/73, oxygen 95% on 2 L. HEENT: No pallor, no icterus. Pupils equal, round, and reactive to light. NECK: No JVD, no neck masses, no carotid bruits. CARDIOVASCULAR: S1, S2 heard, regular rate and rhythm, no murmur, no gallop. RESPIRATORY SYSTEM: Normal AP diameter. No accessory muscle use. Mild occasional wheezing, no crackles. ABDOMEN: Soft. Bowel sounds present. Nontender. CENTRAL NERVOUS SYSTEM: Cranial nerves II through XII grossly intact. Nonfocal. EXTREMITIES: Chronic lower extremity edema present better than previous. Mild erythema seen, lower extremity superficial wounds healing. Right foot is in the boot. ASSESSMENT AND PLAN: This is a 48-year-old male who presents with shortness of breath and mild chronic obstructive pulmonary disease exacerbation. 1. Mild chronic obstructive pulmonary disease exacerbation. The patient is still smoking. We will place him on DuoNebs around the clock and as needed, oral doxycycline. Received IV Solu-Medrol in the Emergency Room. We will place him on prednisone orally. Consider Pulmonary consult. Family doctor is trying to get an outpatient pulmonary consult. He may need long acting B agonist , also 2-study prior to discharge. 2. Morbid obesity. May need sleep study outpatient. We will do nocturnal pulse ox study when patient is more stable. 3. Lower extremity edema,on Lasix daily. Monitor for any volume overload. 4. Right third metatarsal fracture Placed on special boot. He is supposed to follow with ortho but did not. We will consult Ortho 4. Tobacco disorder. Needs counselling. 5. Mood disorder on Cymbalta. 6. Chronic pain syndrome. History of opiate dependence on Suboxone, Neurontin. 7. Prediabetes. HbA1c 6.3 last admission. Monitor blood sugars while on steroids 7. History of pulmonary embolism. Not on any anticoagulation at this time. The patient is on heparin subcutaneously for prophylaxis. 8. Hypertension. On clonidine, diuretics. We will monitor the blood pressure. 9. History of bilateral lower extremity cellulitis seems improved. 10. Deep vein thrombosis prophylaxis heparin subcutaneously. DISPOSITION: Admit to med tele. PT and OT prior to discharge. director of tax services to help with discharge planning. May need 2-steps prior to discharge and nocturnal pulse ox study. Level I full code. MTDD
[2018-09-16] MEDS: KETOROLAC 30 MG/ML VIAL IV PRN ×4 (01:12→20:31)
[2018-09-16 05:36] LABS: Basophils # (auto) 0.02 K/uL (0-0.2); Basophils % (auto) 0.2 %; Hemoglobin 13.2 g/dL (14.0-18.0); Immature Granulocytes # (auto) 0.03 K/uL (0.00-0.02); Immature Granulocytes % (auto) 0.2 %; Lymphocytes # (auto) 1.19 K/uL (1.2-3.4); Lymphocytes % (auto) 9.2 %; Mean Corpuscular Hgb Conc 32.2 g/dL (32-36); Mean Corpuscular Volume 87.2 fL (80-100); Mean Platelet Volume 10.5 fL (7.4-10.4); Monocytes # (auto) 0.52 K/uL (0.11-0.59); Neutrophils # (auto) 11.12 K/uL (1.4-6.5); Neutrophils % (auto) 86.4 %; Platelet Count 217 K/uL (130-400); RDW Coefficient of Variation 15.2 % (11.5-14.5); RDW Standard Deviation 48.7 fL (36.4-46.3); White Blood Count 12.88 K/uL (4.8-10.8)
[2018-09-16 06:14] LABS: BUN Creatinine Ratio 21.8 (10-20); Calcium 9.5 mg/dl (8.5-10.1); Creatinine Clr Calc Pharmacy 135.3 ml/min; Est GFR (African American) 86.7; Est GFR (Non-African American) 74.8; Magnesium 2.3 mg/dl (1.8-2.4); Potassium 3.7 mmol/L (3.5-5.1)
[2018-09-16] MEDS: HEPARIN SOD 5,000 UNIT/0.5 ML VIAL SQ SCH ×3 (06:25→21:32)
[2018-09-16] MEDS: ALBUT/IPRATROP 3MG/0.5MG NEB 3 ML VIAL NEB SCH ×4 (07:27→19:16)
[2018-09-16] MEDS: PANTOprazole 40 MG TAB PO SCH (08:28)
[2018-09-16] MEDS: DOXYCYCLINE HYCLATE 100 MG CAP PO SCH ×2 (08:28→20:23)
[2018-09-16] MEDS: FUROSEMIDE 20 MG TAB PO SCH (08:28)
[2018-09-16] MEDS: GABAPENTIN 600 MG TAB PO SCH ×3 (08:28→20:22)
[2018-09-16] MEDS: FLUTICASONE PROPIONATE NA SPR 16 GM BTL SCH (08:28)
[2018-09-16] MEDS: NICOTINE 21 MG/24 HR TDSY TD SCH (08:28)
[2018-09-16] MEDS: predniSONE 20 MG TAB PO SCH (08:28)
[2018-09-16] MEDS: cloNIDine HCl 0.1 MG TAB PO SCH ×2 (08:28→20:22)
[2018-09-16] MEDS: GABAPENTIN 400 MG CAP PO SCH ×3 (08:28→20:22)
[2018-09-16] MEDS: BACLOFEN 10 MG TAB PO SCH (08:28)
[2018-09-16] MEDS: BUPRENORPHINE/NALOXONE 8/2 MG TAB SL SCH ×3 (08:32→21:23)
[2018-09-16] MEDS ORDERED: DULOXETINE HCL 30 MG CAP PO SCH (09:00)
--- NOTE | 2018-09-16 15:01 | Hospitalist Progress Note ---
Date of Service September 16, 2018 Assessment & Plan (1) COPD exacerbation: Admitted with increasing shortness of breath with cough and wheezing Started 1 intravenous steroid and now on oral Continue nebulized bronchodilators Clinically little bit better today Doxycycline for probable bronchitis, no pneumonia in chest x-ray (2) CHF (congestive heart failure): History of congestive heart failure Likely contributing to shortness of breath Continue with current dose of diuretic (3) Chronic pain disorder: Complaints of nonspecific pain We will continue with current home pain medications No additional narcotics will be given (4) Bilateral lower leg cellulitis: Has bilateral leg swelling Cellulitis seems to be healed at this time (5) HTN (hypertension): BP remains stable Continue current medication Subjective Is a 48-year-old obese male with significant past medical history of COPD, congestive heart failure, bilateral leg swelling with cellulitis, and history of atypical chest pain was admitted with exacerbation of COPD last night. 09/16 Patient was examined and seen in medical floor Complains to have some shortness of breath with wheezing Complains to have more pain,very nonspecific Denies any chest pain, palpitation or shortness of breath at rest Physical Exam 2 Vital Signs (Past 24 Hours): Last Vital Signs Temp 36.9 C 09/16/18 11:44 Pulse 90 09/16/18 11:44 Resp 22 09/16/18 11:44 BP 148/80 H 09/16/18 11:44 Pulse Ox 97 09/16/18 11:44 Physical Exam: Lying in bed with minimal shortness of breath Constitutional: WD/WN, vitals as above No apparent distress Eyes: PERRL, conjunctivae normal, anicteric sclerae ENMT: external ear and nose normal, oropharynx normal Neck: trachea midline, no thyromegaly Respiratory: + respiratory distress (Minimal lateral) Auscultation: + diminished lung sounds, + crackles (Minimal crackles at the bases) and + wheezes (Bilateral wheezing) Cardiovascular: Rate/Rhythm: regular rate and regular rhythm Heart Sounds: normal S1 and normal S2 Gastrointestinal (Abdomen): Inspection/Auscultation: abdomen normal to inspection and normal bowel sounds Percussion/Palpation: abdomen soft; abdomen nontender Neurologic: normal touch/pain/proprioception and awake Results & Data Laboratory Results Short CBC 09/15/18 09/16/18 Range/Units 18:33 05:24 WBC 14.50 H 12.88 H (4.8-10.8) K/uL Hgb 13.5 L 13.2 L (14.0-18.0) g/dL Hct 41.8 L 41.0 L (42-52) % Plt Count 208 217 (130-400) K/uL BMP 09/15/18 09/15/18 09/16/18 18:32 19:28 05:24 Sodium Cancelled 140 139 Potassium Cancelled 3.5 3.7 Chloride Cancelled 101 101 Carbon Dioxide Cancelled 36 H 30 BUN Cancelled 24 H 25 H Creatinine Cancelled 1.07 1.15 Glucose Cancelled 111 H 201 H Calcium Cancelled 9.5 9.5 Cardiac Enzymes 09/15/18 Range/Units 19:28 Troponin I < 0.015 (0-0.045) ng/ml Liver Function 09/15/18 09/15/18 Range/Units 18:32 19:28 Total Bilirubin Cancelled 0.5 AST Cancelled 12 L ALT Cancelled 24 Alkaline Phosphatase Cancelled 111 Albumin Cancelled 3.3 L Medications Administered Current Inpatient Medications Albuterol (Duoneb) 3 ml NEB QIDR [facility] Stop: 10/16/18 07:59 Last Admin: 09/16/18 11:02 Dose: 3 ml Albuterol (Ventolin Hfa) 2 puffs INH Q4H PRN PRN Reason: Wheezing Stop: 10/15/18 22:33 Albuterol (Duoneb) 3 ml NEB Q2H PRN PRN Reason: Shortness Of Breath Or Wheezing Stop: 10/15/18 22:33 Last Admin: 09/15/18 23:31 Dose: 3 ml Baclofen (Lioresal) 10 mg PO DAILY [facility] Stop: 10/16/18 08:59 Last Admin: 09/16/18 08:28 Dose: 10 mg Buprenorphine/Naloxone (Suboxone 8 Mg/2 Mg) 1 tab SL BID [facility] Stop: 10/16/18 08:59 Last Admin: 09/16/18 08:32 Dose: 1 tab Buprenorphine/Naloxone (Suboxone 8 Mg/2 Mg) 0.5 tab SL DAILY@1200 [facility] Stop: 10/16/18 11:59 Last Admin: 09/16/18 12:26 Dose: 0.5 tab Clonidine HCl (Catapres) 0.1 mg PO BID [facility] Stop: 10/15/18 22:33 Last Admin: 09/16/18 08:28 Dose: 0.1 mg Doxycycline Hyclate (Vibramycin) 100 mg PO BID [facility] Stop: 09/22/18 22:33 Last Admin: 09/16/18 08:28 Dose: 100 mg Duloxetine HCl (Cymbalta) 30 mg PO QPM [facility] Stop: 10/15/18 23:14 Last Admin: 09/15/18 23:40 Dose: 30 mg Fluticasone Propionate (Flonase) 2 sprays NA DAILY [facility] Stop: 10/16/18 08:59 Last Admin: 09/16/18 08:28 Dose: 2 sprays Furosemide (Lasix) 20 mg PO DAILY [facility] Stop: 10/16/18 08:59 Last Admin: 09/16/18 08:28 Dose: 20 mg Gabapentin (Neurontin) 400 mg PO TID [facility] Stop: 10/15/18 22:33 Last Admin: 09/16/18 13:58 Dose: 400 mg Gabapentin (Neurontin) 600 mg PO TID [facility] Stop: 10/15/18 22:33 Last Admin: 09/16/18 13:58 Dose: 600 mg Heparin Sodium (Porcine) (Heparin Sodium (Porcine)) 5,000 units SQ Q8 [facility] Stop: 10/16/18 05:59 Last Admin: 09/16/18 13:58 Dose: 5,000 units Hydroxyzine HCl (Vistaril) 25 mg PO Q6H PRN PRN Reason: Itching Stop: 10/15/18 22:33 Last Admin: 09/16/18 00:29 Dose: 25 mg Ketorolac Tromethamine (Toradol) 30 mg IV Q6H PRN PRN Reason: Pain Stop: 09/20/18 23:12 Last Admin: 09/16/18 14:02 Dose: 30 mg Miscellaneous (Remove Nicoderm Patch) 1 ea N/A HS [facility] Stop: 10/16/18 20:59 Nicotine (Nicoderm Cq) 21 mg TD QAM [facility] Stop: 10/15/18 23:14 Last Admin: 09/16/18 08:28 Dose: 21 mg Nitroglycerin (Nitrostat) 0.4 mg SL UD PRN PRN Reason: Chest Pain Stop: 10/15/18 22:33 Ondansetron HCl (Zofran) 4 mg IV Q6H PRN PRN Reason: Nausea Stop: 10/15/18 22:33 Pantoprazole Sodium (Protonix) 40 mg PO DAILY [facility] Stop: 10/16/18 08:59 Last Admin: 09/16/18 08:28 Dose: 40 mg Polyethylene Glycol (Miralax Powder Packet) 17 gm PO DAILY PRN PRN Reason: Constipation Stop: 10/15/18 22:33 Prednisone (Prednisone) 40 mg PO DAILY [facility] Stop: 10/16/18 08:59 Last Admin: 09/16/18 08:28 Dose: 40 mg Tramadol HCl (Ultram) 50 mg PO Q4H PRN PRN Reason: Pain Stop: 10/15/18 23:52 Last Admin: 09/16/18 13:05 Dose: 50 mg Trazodone HCl (Desyrel) 50 mg PO QPM PRN PRN Reason: Insomnia Stop: 10/15/18 22:33
[2018-09-16] MEDS: DULOXETINE HCL 30 MG CAP PO SCH (20:22)
--- NOTE | 2018-09-16 22:19 | XRay Report ---
XR foot RT min 3V routine HISTORY: 48 years-old Male nonunion metatarsal follow-up study in a patient with history of subacute injury to the right forefoot. COMPARISON: Right foot radiographs 07/02/2018 TECHNIQUE: 3 views of the right foot FINDINGS: Transverse fracture forming about the mid diaphyseal aspect of the third metatarsal is noted with per ipheral cortication of the fracture fragments. No bony bridging of the fracture fragments. Surroundin g metallic shrapnel from prior penetrating trauma. Mild soft tissue prominence about the forefoot. Ty pe I accessory navicular. No acute fracture or dislocation. IMPRESSION: No significant bony healing of the subacute to chronic appearing fracture of the mid diaphyseal third metatarsal. The above report was generated using voice recognition software. It may contain grammatical, syntax o r spelling errors. Electronically signed by: Kem Apodaca M.D. 09/16/2018 10:16 PM
[2018-09-17] MEDS: ALBUT/IPRATROP 3MG/0.5MG NEB 3 ML VIAL NEB PRN (00:01)
[2018-09-17] MEDS: TRAMADOL HCL 50 MG TABLET PO PRN ×3 (02:05→10:22)
[2018-09-17] MEDS: KETOROLAC 30 MG/ML VIAL IV PRN ×3 (03:13→19:13)
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
[2018-09-17] MEDS: HEPARIN SOD 5,000 UNIT/0.5 ML VIAL SQ SCH ×3 (06:13→20:35)
[2018-09-17] MEDS: ALBUT/IPRATROP 3MG/0.5MG NEB 3 ML VIAL NEB SCH ×4 (07:00→19:27)
[2018-09-17] MEDS: BUPRENORPHINE/NALOXONE 8/2 MG TAB SL SCH ×3 (10:23→20:31)
[2018-09-17] MEDS: FLUTICASONE PROPIONATE NA SPR 16 GM BTL SCH (10:23)
[2018-09-17] MEDS: GABAPENTIN 600 MG TAB PO SCH ×3 (10:24→20:32)
[2018-09-17] MEDS: PANTOprazole 40 MG TAB PO SCH (10:24)
[2018-09-17] MEDS: predniSONE 20 MG TAB PO SCH (10:25)
[2018-09-17] MEDS: GABAPENTIN 400 MG CAP PO SCH ×3 (10:26→20:32)
[2018-09-17] MEDS: DOXYCYCLINE HYCLATE 100 MG CAP PO SCH ×2 (10:26→20:33)
[2018-09-17] MEDS: BACLOFEN 10 MG TAB PO SCH (10:27)
[2018-09-17] MEDS: NICOTINE 21 MG/24 HR TDSY TD SCH (10:27)
[2018-09-17] MEDS: cloNIDine HCl 0.1 MG TAB PO SCH ×2 (10:27→20:31)
[2018-09-17] MEDS: FUROSEMIDE 20 MG TAB PO SCH (10:28)
--- NOTE | 2018-09-17 13:12 | Hospitalist Progress Note ---
Date of Service September 17, 2018 Assessment & Plan (1) COPD exacerbation: Admitted with increasing shortness of breath with cough and wheezing Started 1 intravenous steroid and now on oral Continue nebulized bronchodilators Clinically little bit better today Doxycycline for probable bronchitis, no pneumonia in chest x-ray Little improvement with shortness of Continue with current medication (2) CHF (congestive heart failure): History of congestive heart failure Likely contributing to shortness of breath Continue with current dose of diuretic Will give 1 dose of intravenous Lasix today (3) Chronic pain disorder: Complaints of nonspecific pain We will continue with current home pain medications No additional narcotics will be given Wanted to have home dose of Ultram regularly He mentioned that he has been taking 100 mg of Ultram every 4 hourly No documentation in the epic about this medical We will discuss with the patient and manage accordingly (4) Bilateral lower leg cellulitis: Has bilateral leg swelling Cellulitis seems to be healed at this time No evidence of cellulitis at this (5) HTN (hypertension): BP remains stable Continue current medication Blood pressure is controlled Subjective Is a 48-year-old obese male with significant past medical history of COPD, congestive heart failure, bilateral leg swelling with cellulitis, and history of atypical chest pain was admitted with exacerbation of COPD last night. 09/16 Patient was examined and seen in medical floor Complains to have some shortness of breath with wheezing Complains to have more pain,very nonspecific Denies any chest pain, palpitation or shortness of breath at rest 07/18 The patient was seen and examined the medical floor Complains to have ongoing nonspecific pain He wants to have his usual home pain medications restarted He mentioned that he has been taking 100 mg of Ultram every 4 hours around-the- clock And he wants to have it put in that way His breathing has been reasonably stable Physical Exam 2 Vital Signs (Past 24 Hours): Last Vital Signs Temp 37.0 C 09/17/18 11:46 Pulse 75 09/17/18 11:46 Resp 20 09/17/18 11:46 BP 98/62 L 09/17/18 11:46 Pulse Ox 92 09/17/18 11:46 Constitutional: WD/WN, vitals as above Eyes: PERRL, conjunctivae normal, anicteric sclerae ENMT: external ear and nose normal, oropharynx normal Neck: trachea midline, no thyromegaly Respiratory: + respiratory distress (Minimal lateral) Auscultation: + diminished lung sounds, + crackles (Minimal crackles at the bases) and + wheezes (Bilateral wheezing) Cardiovascular: Rate/Rhythm: regular rate and regular rhythm Heart Sounds: normal S1 and normal S2 Gastrointestinal (Abdomen): Inspection/Auscultation: abdomen normal to inspection and normal bowel sounds Percussion/Palpation: abdomen soft; abdomen nontender Neurologic: normal touch/pain/proprioception and awake Results & Data Medications Administered Current Inpatient Medications Albuterol (Duoneb) 3 ml NEB QIDR [facility] Stop: 10/16/18 07:59 Last Admin: 09/17/18 11:19 Dose: 3 ml Albuterol (Ventolin Hfa) 2 puffs INH Q4H PRN PRN Reason: Wheezing Stop: 10/15/18 22:33 Albuterol (Duoneb) 3 ml NEB Q2H PRN PRN Reason: Shortness Of Breath Or Wheezing Stop: 10/15/18 22:33 Last Admin: 09/17/18 00:01 Dose: 3 ml Baclofen (Lioresal) 10 mg PO DAILY [facility] Stop: 10/16/18 08:59 Last Admin: 09/17/18 10:27 Dose: 10 mg Buprenorphine/Naloxone (Suboxone 8 Mg/2 Mg) 1 tab SL BID [facility] Stop: 10/16/18 08:59 Last Admin: 09/17/18 10:23 Dose: 1 tab Buprenorphine/Naloxone (Suboxone 8 Mg/2 Mg) 0.5 tab SL DAILY@1200 [facility] Stop: 10/16/18 11:59 Last Admin: 09/17/18 13:03 Dose: 0.5 tab Clonidine HCl (Catapres) 0.1 mg PO BID [facility] Stop: 10/15/18 22:33 Last Admin: 09/17/18 10:27 Dose: 0.1 mg Doxycycline Hyclate (Vibramycin) 100 mg PO BID [facility] Stop: 09/22/18 22:33 Last Admin: 09/17/18 10:26 Dose: 100 mg Duloxetine HCl (Cymbalta) 30 mg PO QPM [facility] Stop: 10/15/18 23:14 Last Admin: 09/16/18 20:22 Dose: 30 mg Fluticasone Propionate (Flonase) 2 sprays NA DAILY [facility] Stop: 10/16/18 08:59 Last Admin: 09/17/18 10:23 Dose: 2 sprays Furosemide (Lasix) 20 mg PO DAILY [facility] Stop: 10/16/18 08:59 Last Admin: 09/17/18 10:28 Dose: 20 mg Gabapentin (Neurontin) 400 mg PO TID [facility] Stop: 10/15/18 22:33 Last Admin: 09/17/18 13:04 Dose: 400 mg Gabapentin (Neurontin) 600 mg PO TID [facility] Stop: 10/15/18 22:33 Last Admin: 09/17/18 13:04 Dose: 600 mg Heparin Sodium (Porcine) (Heparin Sodium (Porcine)) 5,000 units SQ Q8 [facility] Stop: 10/16/18 05:59 Last Admin: 09/17/18 13:05 Dose: 5,000 units Hydroxyzine HCl (Vistaril) 25 mg PO Q6H PRN PRN Reason: Itching Stop: 10/15/18 22:33 Last Admin: 09/17/18 11:43 Dose: 25 mg Ketorolac Tromethamine (Toradol) 30 mg IV Q6H PRN PRN Reason: Pain Stop: 09/20/18 23:12 Last Admin: 09/17/18 11:43 Dose: 30 mg Miscellaneous (Remove Nicoderm Patch) 1 ea N/A HS [facility] Stop: 10/16/18 20:59 Last Admin: 09/16/18 21:50 Dose: Not Given Nicotine (Nicoderm Cq) 21 mg TD QAM [facility] Stop: 10/15/18 23:14 Last Admin: 09/17/18 10:27 Dose: 21 mg Nitroglycerin (Nitrostat) 0.4 mg SL UD PRN PRN Reason: Chest Pain Stop: 10/15/18 22:33 Ondansetron HCl (Zofran) 4 mg IV Q6H PRN PRN Reason: Nausea Stop: 10/15/18 22:33 Pantoprazole Sodium (Protonix) 40 mg PO DAILY [facility] Stop: 10/16/18 08:59 Last Admin: 09/17/18 10:24 Dose: 40 mg Polyethylene Glycol (Miralax Powder Packet) 17 gm PO DAILY PRN PRN Reason: Constipation Stop: 10/15/18 22:33 Prednisone (Prednisone) 40 mg PO DAILY [facility] Stop: 10/16/18 08:59 Last Admin: 09/17/18 10:25 Dose: 40 mg Tramadol HCl (Ultram) 100 mg PO Q4H [facility] Stop: 10/17/18 13:14 Trazodone HCl (Desyrel) 50 mg PO QPM PRN PRN Reason: Insomnia Stop: 10/15/18 22:33
[2018-09-17] MEDS: TRAMADOL HCL 50 MG TABLET PO SCH ×3 (13:37→22:18)
[2018-09-17] MEDS: DULOXETINE HCL 30 MG CAP PO SCH (20:32)
[2018-09-18] MEDS: KETOROLAC 30 MG/ML VIAL IV PRN ×3 (01:02→15:06)
[2018-09-18] MEDS: TRAMADOL HCL 50 MG TABLET PO SCH ×6 (02:34→22:05)
[2018-09-18] MEDS: HEPARIN SOD 5,000 UNIT/0.5 ML VIAL SQ SCH ×3 (05:37→20:47)
[2018-09-18] MEDS: ALBUT/IPRATROP 3MG/0.5MG NEB 3 ML VIAL NEB SCH ×4 (07:13→19:09)
[2018-09-18] MEDS: BUPRENORPHINE/NALOXONE 8/2 MG TAB SL SCH ×3 (08:41→20:56)
[2018-09-18] MEDS: FLUTICASONE PROPIONATE NA SPR 16 GM BTL SCH (08:42)
[2018-09-18] MEDS: predniSONE 20 MG TAB PO SCH (08:42)
[2018-09-18] MEDS: BACLOFEN 10 MG TAB PO SCH (08:42)
[2018-09-18] MEDS: PANTOprazole 40 MG TAB PO SCH (08:43)
[2018-09-18] MEDS: FUROSEMIDE 20 MG TAB PO SCH (08:43)
[2018-09-18] MEDS: cloNIDine HCl 0.1 MG TAB PO SCH ×2 (08:43→20:45)
[2018-09-18] MEDS: GABAPENTIN 600 MG TAB PO SCH ×3 (08:43→20:45)
[2018-09-18] MEDS: NICOTINE 21 MG/24 HR TDSY TD SCH (08:43)
[2018-09-18] MEDS: GABAPENTIN 400 MG CAP PO SCH ×3 (08:43→20:45)
[2018-09-18] MEDS ORDERED: FUROSEMIDE 80 MG in SYRINGE 0 ML IV ONE (09:00)
[2018-09-18] MEDS: DOXYCYCLINE HYCLATE 100 MG CAP PO SCH ×2 (10:02→20:46)
--- NOTE | 2018-09-18 10:40 | Hospitalist Progress Note ---
Date of Service September 18, 2018 Assessment & Plan (1) COPD exacerbation: Admitted with increasing shortness of breath with cough and wheezing Started 1 intravenous steroid and now on oral Continue nebulized bronchodilators Clinically little bit better today Doxycycline for probable bronchitis, no pneumonia in chest x-ray Little improvement with shortness of Continue with current medication Still has significant wheezing We will discontinue oral prednisone and if intravenous Solu-Medrol for a day or 2 (2) CHF (congestive heart failure): History of congestive heart failure Likely contributing to shortness of breath Continue with current dose of diuretic Will give 1 dose of intravenous Lasix today and monitor kidney function If normal renal function is adequate we will repeat the dose of intravenous Lasix tomorrow (3) Chronic pain disorder: Complaints of nonspecific pain We will continue with current home pain medications No additional narcotics will be given Wanted to have home dose of Ultram regularly He mentioned that he has been taking 100 mg of Ultram every 4 hourly No documentation in the epic about this medical We will discuss with the patient and manage accordingly Both the and the patient to mention to me yesterday that the patient has been taking 100 of Ultram every 4 hourly regularly This was prescribed by his pain therapist I discussed the side effect of Ultram with the patient and he wanted to continue with that dose He has been getting Ultram 100 mg q. 4 hourly for pain control (4) Bilateral lower leg cellulitis: Has bilateral leg swelling Cellulitis seems to be healed at this time No evidence of cellulitis at this (5) HTN (hypertension): BP remains stable Continue current medication Blood pressure is controlled Subjective Is a 48-year-old obese male with significant past medical history of COPD, congestive heart failure, bilateral leg swelling with cellulitis, and history of atypical chest pain was admitted with exacerbation of COPD last night. 09/16 Patient was examined and seen in medical floor Complains to have some shortness of breath with wheezing Complains to have more pain,very nonspecific Denies any chest pain, palpitation or shortness of breath at rest 07/18 The patient was seen and examined the medical floor Complains to have ongoing nonspecific pain He wants to have his usual home pain medications restarted He mentioned that he has been taking 100 mg of Ultram every 4 hours around-the- clock And he wants to have it put in that way His breathing has been reasonably stable 09/18 The patient was seen and examined in medical floor He complains to have ongoing wheezing and feels bloated Pain seems to be reasonably controlled Physical Exam 2 Vital Signs (Past 24 Hours): Last Vital Signs Temp 36.6 C 09/18/18 07:26 Pulse 68 09/18/18 07:26 Resp 18 09/18/18 07:26 BP 115/72 09/18/18 07:26 Pulse Ox 98 09/18/18 07:26 Constitutional: WD/WN, vitals as above Eyes: PERRL, conjunctivae normal, anicteric sclerae ENMT: external ear and nose normal, oropharynx normal Neck: trachea midline, no thyromegaly Respiratory: + respiratory distress (Minimal lateral) Auscultation: + diminished lung sounds, + crackles (Minimal crackles at the bases) and + wheezes (Bilateral wheezing) Cardiovascular: Rate/Rhythm: regular rate and regular rhythm Heart Sounds: normal S1 and normal S2 Gastrointestinal (Abdomen): Inspection/Auscultation: abdomen normal to inspection and normal bowel sounds Percussion/Palpation: abdomen soft; abdomen nontender Neurologic: normal touch/pain/proprioception and awake Results & Data Medications Administered Current Inpatient Medications Albuterol (Duoneb) 3 ml NEB QIDR [facility] Stop: 10/16/18 07:59 Last Admin: 09/18/18 07:13 Dose: 3 ml Albuterol (Ventolin Hfa) 2 puffs INH Q4H PRN PRN Reason: Wheezing Stop: 10/15/18 22:33 Albuterol (Duoneb) 3 ml NEB Q2H PRN PRN Reason: Shortness Of Breath Or Wheezing Stop: 10/15/18 22:33 Last Admin: 09/17/18 00:01 Dose: 3 ml Baclofen (Lioresal) 10 mg PO DAILY [facility] Stop: 10/16/18 08:59 Last Admin: 09/18/18 08:42 Dose: 10 mg Buprenorphine/Naloxone (Suboxone 8 Mg/2 Mg) 1 tab SL BID [facility] Stop: 10/16/18 08:59 Last Admin: 09/18/18 08:41 Dose: 1 tab Buprenorphine/Naloxone (Suboxone 8 Mg/2 Mg) 0.5 tab SL DAILY@1200 [facility] Stop: 10/16/18 11:59 Last Admin: 09/17/18 13:03 Dose: 0.5 tab Clonidine HCl (Catapres) 0.1 mg PO BID [facility] Stop: 10/15/18 22:33 Last Admin: 09/18/18 08:43 Dose: 0.1 mg Doxycycline Hyclate (Vibramycin) 100 mg PO BID [facility] Stop: 09/22/18 22:33 Last Admin: 09/18/18 10:02 Dose: 100 mg Duloxetine HCl (Cymbalta) 30 mg PO QPM [facility] Stop: 10/15/18 23:14 Last Admin: 09/17/18 20:32 Dose: 30 mg Fluticasone Propionate (Flonase) 2 sprays NA DAILY [facility] Stop: 10/16/18 08:59 Last Admin: 09/18/18 08:42 Dose: 2 sprays Furosemide (Lasix) 20 mg PO DAILY [facility] Stop: 10/16/18 08:59 Last Admin: 09/18/18 08:43 Dose: 20 mg Gabapentin (Neurontin) 400 mg PO TID [facility] Stop: 10/15/18 22:33 Last Admin: 09/18/18 08:43 Dose: 400 mg Gabapentin (Neurontin) 600 mg PO TID [facility] Stop: 10/15/18 22:33 Last Admin: 09/18/18 08:43 Dose: 600 mg Heparin Sodium (Porcine) (Heparin Sodium (Porcine)) 5,000 units SQ Q8 [facility] Stop: 10/16/18 05:59 Last Admin: 09/18/18 05:37 Dose: 5,000 units Hydroxyzine HCl (Vistaril) 25 mg PO Q6H PRN PRN Reason: Itching Stop: 10/15/18 22:33 Last Admin: 09/18/18 08:44 Dose: 25 mg Methylprednisolone 40 mg/ (Syringe) 0.64 mls @ 1.5 mls/min IV Q8 [facility] Stop: 10/18/18 13:59 Ketorolac Tromethamine (Toradol) 30 mg IV Q6H PRN PRN Reason: Pain Stop: 09/20/18 23:12 Last Admin: 09/18/18 08:41 Dose: 30 mg Miscellaneous (Remove Nicoderm Patch) 1 ea N/A HS [facility] Stop: 10/16/18 20:59 Last Admin: 09/17/18 20:38 Dose: Not Given Nicotine (Nicoderm Cq) 21 mg TD QAM [facility] Stop: 10/15/18 23:14 Last Admin: 09/18/18 08:43 Dose: 21 mg Nitroglycerin (Nitrostat) 0.4 mg SL UD PRN PRN Reason: Chest Pain Stop: 10/15/18 22:33 Ondansetron HCl (Zofran) 4 mg IV Q6H PRN PRN Reason: Nausea Stop: 10/15/18 22:33 Pantoprazole Sodium (Protonix) 40 mg PO DAILY [facility] Stop: 10/16/18 08:59 Last Admin: 09/18/18 08:43 Dose: 40 mg Polyethylene Glycol (Miralax Powder Packet) 17 gm PO DAILY PRN PRN Reason: Constipation Stop: 10/15/18 22:33 Tramadol HCl (Ultram) 100 mg PO Q4H [facility] Stop: 10/17/18 13:59 Last Admin: 09/18/18 10:02 Dose: 100 mg Trazodone HCl (Desyrel) 50 mg PO QPM PRN PRN Reason: Insomnia Stop: 10/15/18 22:33 Last Admin: 09/17/18 22:37 Dose: 50 mg
[2018-09-18] MEDS: methylPREDNISolone 40 MG in SYRINGE 0 ML IV SCH ×2 (13:51→20:57)
[2018-09-18] MEDS: DULOXETINE HCL 30 MG CAP PO SCH (20:45)
[2018-09-18] MEDS: DOCUSATE SODIUM 100 MG CAP PO SCH (20:56)
[2018-09-18] MEDS ORDERED: POLYETHYLENE (MIRALAX) 17 GM PACK PO SCH (21:00)
[2018-09-19] MEDS: TRAMADOL HCL 50 MG TABLET PO SCH ×4 (02:25→13:55)
[2018-09-19] MEDS: KETOROLAC 30 MG/ML VIAL IV PRN ×2 (03:20→09:35)
[2018-09-19] MEDS: HEPARIN SOD 5,000 UNIT/0.5 ML VIAL SQ SCH ×2 (06:19→14:13)
[2018-09-19] MEDS: methylPREDNISolone 40 MG in SYRINGE 0 ML IV SCH ×2 (06:19→13:55)
[2018-09-19] MEDS: ALBUT/IPRATROP 3MG/0.5MG NEB 3 ML VIAL NEB SCH ×2 (06:57→11:22)
[2018-09-19] MEDS: BUPRENORPHINE/NALOXONE 8/2 MG TAB SL SCH ×2 (08:01→13:55)
[2018-09-19] MEDS: GABAPENTIN 400 MG CAP PO SCH ×2 (08:02→13:55)
[2018-09-19] MEDS: FLUTICASONE PROPIONATE NA SPR 16 GM BTL SCH (08:02)
[2018-09-19] MEDS: NICOTINE 21 MG/24 HR TDSY TD SCH (08:02)
[2018-09-19] MEDS: DOXYCYCLINE HYCLATE 100 MG CAP PO SCH (08:03)
[2018-09-19] MEDS: PANTOprazole 40 MG TAB PO SCH (08:03)
[2018-09-19] MEDS: BACLOFEN 10 MG TAB PO SCH (08:03)
[2018-09-19 08:35] LABS: Basophils # (auto) 0.01 K/uL (0-0.2); Basophils % (auto) 0.1 %; Hematocrit (blood only) 39.4 % (42-52); Hemoglobin 12.6 g/dL (14.0-18.0); Immature Granulocytes # (auto) 0.16 K/uL (0.00-0.02); Immature Granulocytes % (auto) 1.1 %; Lymphocytes % (auto) 9.9 %; Mean Corpuscular Volume 86.6 fL (80-100); Mean Platelet Volume 10.2 fL (7.4-10.4); Monocytes # (auto) 0.64 K/uL (0.11-0.59); Monocytes % (auto) 4.2 %; Neutrophils # (auto) 12.78 K/uL (1.4-6.5); Neutrophils % (auto) 84.7 %; Platelet Count 185 K/uL (130-400); RDW Coefficient of Variation 15.3 % (11.5-14.5); RDW Standard Deviation 49.2 fL (36.4-46.3); Red Blood Count 4.55 M/uL (4.7-6.1); White Blood Count 15.09 K/uL (4.8-10.8)
[2018-09-19 09:07] LABS: BUN Creatinine Ratio 21.9 (10-20); Calcium 9.3 mg/dl (8.5-10.1); Creatinine Clr Calc Pharmacy 134.1 ml/min; Est GFR (African American) 84.1; Est GFR (Non-African American) 72.5; Magnesium 2.2 mg/dl (1.8-2.4); Potassium 4.5 mmol/L (3.5-5.1)
[2018-09-19] MEDS: cloNIDine HCl 0.1 MG TAB PO SCH (09:36)
[2018-09-19] MEDS: DOCUSATE SODIUM 100 MG CAP PO SCH (09:36)
[2018-09-19] MEDS: FUROSEMIDE 20 MG TAB PO SCH (09:36)
[2018-09-19] MEDS: GABAPENTIN 600 MG TAB PO SCH ×2 (09:37→14:13)
[2018-09-19] MEDS ORDERED: FUROSEMIDE 60 MG in SYRINGE 0 ML IV ONE (10:00)
--- NOTE | 2018-09-19 11:29 | Hospitalist Progress Note ---
Date of Service September 19, 2018 Assessment & Plan (1) COPD exacerbation: Admitted with increasing shortness of breath with cough and wheezing Started 1 intravenous steroid and now on oral Continue nebulized bronchodilators Clinically little bit better today Doxycycline for probable bronchitis, no pneumonia in chest x-ray Little improvement with shortness of Continue with current medication Still has significant wheezing We will discontinue oral prednisone and if intravenous Solu-Medrol for a day or 2 Clinically a lot better Will get 2 steps saturation test before possible discharge this afternoon (2) CHF (congestive heart failure): History of congestive heart failure Likely contributing to shortness of breath Continue with current dose of diuretic Will give 1 dose of intravenous Lasix today and monitor kidney function If normal renal function is adequate we will repeat the dose of intravenous Lasix tomorrow Creatinine remains stable Will give 60 mg IV Lasix today (3) Chronic pain disorder: Complaints of nonspecific pain We will continue with current home pain medications No additional narcotics will be given Wanted to have home dose of Ultram regularly He mentioned that he has been taking 100 mg of Ultram every 4 hourly No documentation in the epic about this medical We will discuss with the patient and manage accordingly Both the and the patient to mention to me yesterday that the patient has been taking 100 of Ultram every 4 hourly regularly This was prescribed by his pain therapist I discussed the side effect of Ultram with the patient and he wanted to continue with that dose He has been getting Ultram 100 mg q. 4 hourly for pain control (4) Bilateral lower leg cellulitis: Has bilateral leg swelling Cellulitis seems to be healed at this time No evidence of cellulitis at this Level or 3 evaluation today before going home (5) HTN (hypertension): BP remains stable Continue current medication Blood pressure is controlled Possible discharge this afternoon Subjective Is a 48-year-old obese male with significant past medical history of COPD, congestive heart failure, bilateral leg swelling with cellulitis, and history of atypical chest pain was admitted with exacerbation of COPD last night. 09/16 Patient was examined and seen in medical floor Complains to have some shortness of breath with wheezing Complains to have more pain,very nonspecific Denies any chest pain, palpitation or shortness of breath at rest 07/18 The patient was seen and examined the medical floor Complains to have ongoing nonspecific pain He wants to have his usual home pain medications restarted He mentioned that he has been taking 100 mg of Ultram every 4 hours around-the- clock And he wants to have it put in that way His breathing has been reasonably stable 09/18 The patient was seen and examined in medical floor He complains to have ongoing wheezing and feels bloated Pain seems to be reasonably controlled 09/19 The patient was seen and examined the medical floor He has been feeling a lot better allowing intravenous Solu-Medrol Still has some wheezing Nocturnal pulse oximetry has been negative Get 2 steps saturation test before sending home this afternoon Physical Exam 2 Vital Signs (Past 24 Hours): Last Vital Signs Temp 37.1 C 09/19/18 11:07 Pulse 117 H 09/19/18 11:22 Resp 18 09/19/18 11:22 BP 153/78 H 09/19/18 11:07 Pulse Ox 93 09/19/18 11:22 Constitutional: WD/WN, vitals as above Eyes: PERRL, conjunctivae normal, anicteric sclerae ENMT: external ear and nose normal, oropharynx normal Neck: trachea midline, no thyromegaly Respiratory: normal respiratory effort Auscultation: + diminished lung sounds and + wheezes (Bilateral wheezing) Cardiovascular: Rate/Rhythm: regular rate and regular rhythm Heart Sounds: normal S1 and normal S2 Gastrointestinal (Abdomen): Inspection/Auscultation: abdomen normal to inspection and normal bowel sounds Percussion/Palpation: abdomen soft; abdomen nontender Neurologic: normal touch/pain/proprioception and awake Results & Data Laboratory Results Short CBC 09/19/18 Range/Units 08:21 WBC 15.09 H (4.8-10.8) K/uL Hgb 12.6 L (14.0-18.0) g/dL Hct 39.4 L (42-52) % Plt Count 185 (130-400) K/uL BMP 09/19/18 08:21 Sodium 137 Potassium 4.5 Chloride 102 Carbon Dioxide 29 BUN 26 H Creatinine 1.18 Glucose 133 H Calcium 9.3 Medications Administered Current Inpatient Medications Albuterol (Duoneb) 3 ml NEB QIDR EMPERATRIZ Stop: 10/16/18 07:59 Last Admin: 09/19/18 11:22 Dose: 3 ml Albuterol (Ventolin Hfa) 2 puffs INH Q4H PRN PRN Reason: Wheezing Stop: 10/15/18 22:33 Albuterol (Duoneb) 3 ml NEB Q2H PRN PRN Reason: Shortness Of Breath Or Wheezing Stop: 10/15/18 22:33 Last Admin: 09/17/18 00:01 Dose: 3 ml Baclofen (Lioresal) 10 mg PO DAILY [facility] Stop: 10/16/18 08:59 Last Admin: 09/19/18 08:03 Dose: 10 mg Buprenorphine/Naloxone (Suboxone 8 Mg/2 Mg) 1 tab SL BID EMPERATRIZ Stop: 10/16/18 08:59 Last Admin: 09/19/18 08:01 Dose: 1 tab Buprenorphine/Naloxone (Suboxone 8 Mg/2 Mg) 0.5 tab SL DAILY@1200 [facility] Stop: 10/16/18 11:59 Last Admin: 09/18/18 13:06 Dose: 0.5 tab Clonidine HCl (Catapres) 0.1 mg PO BID [facility] Stop: 10/15/18 22:33 Last Admin: 09/19/18 09:36 Dose: 0.1 mg Docusate Sodium (Colace) 100 mg PO BID [facility] Stop: 10/18/18 20:59 Last Admin: 09/19/18 09:36 Dose: 100 mg Doxycycline Hyclate (Vibramycin) 100 mg PO BID [facility] Stop: 09/22/18 22:33 Last Admin: 09/19/18 08:03 Dose: 100 mg Duloxetine HCl (Cymbalta) 30 mg PO QPM [facility] Stop: 10/15/18 23:14 Last Admin: 09/18/18 20:45 Dose: 30 mg Fluticasone Propionate (Flonase) 2 sprays NA DAILY [facility] Stop: 10/16/18 08:59 Last Admin: 09/19/18 08:02 Dose: 2 sprays Furosemide (Lasix) 20 mg PO DAILY [facility] Stop: 10/16/18 08:59 Last Admin: 09/19/18 09:36 Dose: 20 mg Gabapentin (Neurontin) 400 mg PO TID [facility] Stop: 10/15/18 22:33 Last Admin: 09/19/18 08:02 Dose: 400 mg Gabapentin (Neurontin) 600 mg PO TID [facility] Stop: 10/15/18 22:33 Last Admin: 09/19/18 09:37 Dose: 600 mg Heparin Sodium (Porcine) (Heparin Sodium (Porcine)) 5,000 units SQ Q8 EMPERATRIZ Stop: 10/16/18 05:59 Last Admin: 09/19/18 06:19 Dose: 5,000 units Hydroxyzine HCl (Vistaril) 25 mg PO Q6H PRN PRN Reason: Itching Stop: 10/15/18 22:33 Last Admin: 09/19/18 09:35 Dose: 25 mg Methylprednisolone 40 mg/ (Syringe) 0.64 mls @ 1.5 mls/min IV Q8 EMPERATRIZ Stop: 10/18/18 13:59 Last Admin: 09/19/18 06:19 Dose: 1.5 mls/min Ketorolac Tromethamine (Toradol) 30 mg IV Q6H PRN PRN Reason: Pain Stop: 09/20/18 23:12 Last Admin: 09/19/18 09:35 Dose: 30 mg Miscellaneous (Remove Nicoderm Patch) 1 ea N/A HS [facility] Stop: 10/16/18 20:59 Last Admin: 09/18/18 21:28 Dose: Not Given Nicotine (Nicoderm Cq) 21 mg TD QAM [facility] Stop: 10/15/18 23:14 Last Admin: 09/19/18 08:02 Dose: 21 mg Nitroglycerin (Nitrostat) 0.4 mg SL UD PRN PRN Reason: Chest Pain Stop: 10/15/18 22:33 Ondansetron HCl (Zofran) 4 mg IV Q6H PRN PRN Reason: Nausea Stop: 10/15/18 22:33 Pantoprazole Sodium (Protonix) 40 mg PO DAILY [facility] Stop: 10/16/18 08:59 Last Admin: 09/19/18 08:03 Dose: 40 mg Polyethylene Glycol (Miralax Powder Packet) 17 gm PO DAILY PRN PRN Reason: Constipation Stop: 10/15/18 22:33 Last Admin: 09/19/18 08:02 Dose: 17 gm Polyethylene Glycol (Miralax Powder Packet) 17 gm PO HS [facility] Stop: 10/18/18 20:59 Last Admin: 09/18/18 20:56 Dose: 17 gm Tramadol HCl (Ultram) 100 mg PO Q4H EMPERATRIZ Stop: 10/17/18 13:59 Last Admin: 09/19/18 10:27 Dose: 100 mg Trazodone HCl (Desyrel) 50 mg PO QPM PRN PRN Reason: Insomnia Stop: 10/15/18 22:33 Last Admin: 09/17/18 22:37 Dose: 50 mg
--- NOTE | 2018-09-20 08:10 | Discharge Summary ---
Date of Service September 20, 2018 Admission HPI Per Admitting Provider DICTATED BY: Everardo Ibarra MD DATE OF ADMISSION: 09/15/2018 CHIEF COMPLAINT: Shortness of breath. HISTORY OF PRESENT ILLNESS: This is a 48-year-old male with past medical history significant for chronic pain syndrome, obstipation, history of gallbladder stones, moderate COPD, depression with anxiety, tobacco disorder, hypothyroidism, history of pulmonary embolism, history of drug overdose, morbid obesity, opiate dependence and on maintenance therapy, presents with shortness of breath. The patient recently had couple of admissions for COPD exacerbation, lower extremity cellulitis, and last admission he was discharged to [facility]. Currently at home and was recently seen by [facility] PCP and was planned to arrange for outpatient pulmonary. The patient says he always has some shortness of breath but in the last few days this was getting worse. He is having dry cough, feeling chills, has chronic headaches. No blurred vision, no runny nose, no sore throat, no difficulty swallowing. Appetite is not great. Says has some chest pain from his cough, has some nausea, no abdominal pain. Normal bowel and bladder movements. No blood in the stools, no blood in the urine, no burning micturition. His lower extremity edema which is getting better. Currently, sitting in chair comfortably and hemodynamically stable. Admission Exam Per Admitting Provider PHYSICAL EXAMINATION: GENERAL: The patient is morbidly obese, not in acute distress. VITAL SIGNS: Temperature 36.6, pulse 78, respiratory rate 18, blood pressure 145/73, oxygen 95% on 2 L. HEENT: No pallor, no icterus. Pupils equal, round, and reactive to light. NECK: No JVD, no neck masses, no carotid bruits. CARDIOVASCULAR: S1, S2 heard, regular rate and rhythm, no murmur, no gallop. RESPIRATORY SYSTEM: Normal AP diameter. No accessory muscle use. Mild occasional wheezing, no crackles. ABDOMEN: Soft. Bowel sounds present. Nontender. CENTRAL NERVOUS SYSTEM: Cranial nerves II through XII grossly intact. Nonfocal. EXTREMITIES: Chronic lower extremity edema present better than previous. Mild erythema seen, lower extremity superficial wounds healing. Right foot is in the boot. Principal Diagnosis COPD exacerbation Discharge Exam Constitutional WD/WN, vitals as above Eyes PERRL, conjunctivae normal, anicteric sclerae ENMT external ear and nose normal, oropharynx normal Neck trachea midline, no thyromegaly Respiratory normal respiratory effort and + respiratory distress (Minimal lateral) Auscultation: + diminished lung sounds, + crackles (Minimal crackles at the bases) and + wheezes (Bilateral wheezing) Cardiovascular Rate/Rhythm: regular rate and regular rhythm Heart Sounds: normal S1 and normal S2 Gastrointestinal (Abdomen) Inspection/Auscultation: abdomen normal to inspection and normal bowel sounds Percussion/Palpation: abdomen soft; abdomen nontender Neurologic normal touch/pain/proprioception and awake Discharge Data Allergies Allergy/AdvReac Type Severity Reaction Status Date / Time acetaminophen Allergy Intermediate "THEY TOLD Verified 08/02/18 20:00 ME I GET KIDNEY DISEASE" fentanyl Allergy Intermediate RASH/HIVES/SKIN Verified 08/02/18 20:00 REDNESS valproic acid AdvReac Intermediate PANCREATITS Verified 08/02/18 20:00 Consultations 09/15/18 20:19 ED Decision to Admit Stat 09/16/18 08:00 Consult Orthopedic Surgery Routine Hospital Course (1) COPD exacerbation: Admitted with increasing shortness of breath with cough and wheezing Started 1 intravenous steroid and now on oral Continue nebulized bronchodilators Clinically little bit better today Doxycycline for probable bronchitis, no pneumonia in chest x-ray Little improvement with shortness of Continue with current medication Still has significant wheezing We will discontinue oral prednisone and if intravenous Solu-Medrol for a day or 2 Clinically a lot better Will get 2 steps saturation test before possible discharge this afternoon (2) CHF (congestive heart failure): History of congestive heart failure Likely contributing to shortness of breath Continue with current dose of diuretic Will give 1 dose of intravenous Lasix today and monitor kidney function If normal renal function is adequate we will repeat the dose of intravenous Lasix tomorrow Creatinine remains stable Will give 60 mg IV Lasix today (3) Chronic pain disorder: Complaints of nonspecific pain We will continue with current home pain medications No additional narcotics will be given Wanted to have home dose of Ultram regularly He mentioned that he has been taking 100 mg of Ultram every 4 hourly No documentation in the [facility] about this medical We will discuss with the patient and manage accordingly Both the and the patient to mention to me yesterday that the patient has been taking 100 of Ultram every 4 hourly regularly This was prescribed by his pain therapist I discussed the side effect of Ultram with the patient and he wanted to continue with that dose He has been getting Ultram 100 mg q. 4 hourly for pain control (4) Bilateral lower leg cellulitis: Has bilateral leg swelling Cellulitis seems to be healed at this time No evidence of cellulitis at this Level or 3 evaluation today before going home (5) HTN (hypertension): BP remains stable Continue current medication Blood pressure is controlled Possible discharge this afternoon Total Time Total Time Spent Total Time Spent (In Minutes): 35 minutes Total Time Includes: Examination of the Patient, Discharge Planning, Medication Reconciliation and Communication With Other Providers Discharge Plan Discharge Items Patient Disposition: Home - Home Health Services Reason For Visit: SOB Discharge Diagnosis: COPD exacerbation Condition: Fair Discharge Goals: Decrease discomfort, Improve disease control and Improve function Activity: Resume your previous activity Activity Comment: Please take precaution to avoid falls Non-emergency contact: Primary Care Provider Call non-emergency contact if: you have any medication questions and your symptoms worsen Follow-up/Referrals: Walker Gilmore DO [Surgeon] - 09/29/18 3:00 pm Owen Hogan [Physician] - 09/26/18 2:55 pm Diet: Heart Healthy and Low Sodium (2gm) Fluids: 2000ml (8 cups) Addtl Provider Instructions: Call your Primary Care doctor if any of the following symptoms or problems start or get worse: * Shortness of breath or difficulty breathing * Wake up at night short of breath * Chest pain * Cough * Swelling of your hands, feet, or legs * More fatigued or tired with your normal activity * Palpitations - sudden fast heart beats WEIGHT * Weigh yourself every morning after using the bathroom. * Use the same scale. * Wear the same amount of clothing. * Write your weight down on a chart. * Call your Primary Care doctor if you gain more than 2-3 pounds in 1-2 days. MEDICATIONS * Use this discharge instruction sheet for medication instructions. * Take your medications at the time your doctor ordered. * Do not skip a dose of your medicines. * If you miss a dose of medicine, take it as soon as possible, but DO NOT DOUBLE A DOSE. * Read your medicine information when you get home. * Know all of the side effects of your medicine. If in doubt, ask your pharmacist * Call your Primary Care doctor's office if you have any side effects. * Be sure all of your doctors know what medicine and herbs you take (including cold, flu, and herbal medicine). Take the following with you to your follow-up doctor appointments: * Weight Chart * Medication List * List of questions Do not drink excessive alcohol, beer or wine. Prescriptions: New doxycycline hyclate 100 mg Capsule 100 mg PO BID 6 Days Qty: 12 RF: 0 tramadol 50 mg Tablet 100 mg PO Q6H 4 Days Qty: 32 RF: 0 nicotine [Nicoderm CQ] 21 mg/24 hr Patch 24 Hour 21 mg Transdermal QAM 30 Days Qty: 30 RF: 0 docusate sodium 100 mg Capsule 100 mg PO BID 30 Days Qty: 60 RF: 0 albuterol sulfate [Ventolin HFA] 90 mcg/actuation Hfa Aerosol Inhaler 2 puff Inhalation Q4H PRN (Reason: shortness of breath) 30 Days Qty: 1 RF: 0 prednisone 20 mg tablet 20 mg PO UD Qty: 24 RF: 0 Continue clonidine HCl 0.1 mg tablet 0.1 mg PO BID RF: 0 omeprazole 20 mg capsule,delayed release(DR/EC) 20 mg PO DAILY RF: 0 hydroxyzine HCl 25 mg tablet 25 mg PO Q6H PRN (Reason: Itching) RF: 0 fluticasone 50 mcg/actuation spray,suspension 2 spray Intranasal DAILY RF: 0 buprenorphine-naloxone 8-2 mg tablet, sublingual 0.5 tab Sublingual DAILY@1200 RF: 0 buprenorphine-naloxone 8-2 mg tablet, sublingual 1 tab Sublingual AMPM RF: 0 gabapentin 600 mg tablet 600 mg PO TID RF: 0 gabapentin 400 mg capsule 400 mg PO TID RF: 0 albuterol sulfate 90 mcg/actuation HFA aerosol inhaler 2 puff Inhalation Q4H PRN (Reason: Wheezing) RF: 0 ipratropium-albuterol 0.5 mg-3 mg(2.5 mg base)/3 mL Solution For Nebulization 3 ml INHALATION QID PRN (Reason: Shortness Of Breath Or Wheezing) RF: 0 trazodone 50 mg Tablet 50 mg PO QPM PRN (Reason: Insomnia) RF: 0 baclofen 10 mg Tablet 10 mg PO DAILY RF: 0 furosemide [Lasix] 20 mg Tablet 20 mg PO DAILY RF: 0 duloxetine [Cymbalta] 30 mg Capsule,Delayed Release(Dr/Ec) 30 mg PO DAILY RF: 0 Discontinued prednisone 10 mg tablet See Label Instructions .ROUTE .COMPLEX RF: 0 methylprednisolone 4 mg tablets,dose pack 4 mg PO DIRECTED RF: 0 Visit Report Forms: [facility] Portal Stand-Alone Forms: [facility] Discharge Orders: Discharge Order (Routine); Ordered 09/19/18 Ordered By: Augustus Vasquez Admission Data Admit Date/Time: 09/15/18 21:02 Attending Provider: Augustus Vasquez Admit Provider: Everardo Ibarra Primary Care Provider: PCP,NO Other Providers: Everardo Ibarra ; Walker Gilmore Service: Telemetry Other Interventions: Discharge Summary Assessment (RN) Last Done: 09/19/18 13:47 DC Date/Time DO NOT enter until pt leaves facility: 09/19/18 14:27
--- NOTE | 2018-09-22 06:01 | Coding Query ---
CONGESTIVE HEART FAILURE To Promote full compliance with coding requirements relating to patient care, physician participation is requested in all cases of line walker uncertainty. Please assist us with the following questions. A diagnosis of Congestive Heart Failure is documented in the patient's medical record. To accurately code this diagnosis and to compare patient severity, we ask that you specify the type of heart failure by placing an X within the parenthesis (x). SYSTOLIC HEART FAILURE ( ) Acute ( ) Chronic ( ) Acute on Chronic ( ) Rheumatic ( ) Unknown DIASTOLIC HEART FAILURE ( ) Acute ( ) Chronic ( ) Acute on Chronic ( ) Rheumatic ( ) Unknown COMBINED SYSTOLIC AND DIASTOLIC HEART FAILURE ( ) Acute ( ) Chronic ( ) Acute on Chronic ( ) Rheumatic ( ) Unknown Was the CHF Present On Admission? Please check the appropriate box: ( +) Present on Admission ( ) Not Present On Admission ( ) Clinically undetermined Thank you! Cee ALONZO
== END 2018-09-19 14:27 | disposition home health service (06) | DRG 191 ==
LOC: ED 17:01 → 2W 21:02

== ENCOUNTER 2018-10-10 13:52 | Inpatient (IN) ==
[2018-10-10] MEDS ORDERED: ALBUT/IPRATROP 3MG/0.5MG NEB 3 ML VIAL INH STA (14:02)
[2018-10-10] MEDS ORDERED: methylPREDNISolone 125 MG/2 ML VIAL IV STA (14:02)
[2018-10-10] MEDS ORDERED: LEVOFLOXACIN/D5W 750 MG/150 ML BAG IV STA (14:02)
[2018-10-10] MEDS ORDERED: SODIUM CHLORIDE 0.9% 1000ML 1,000 ML IV SCH (14:15)
[2018-10-10 14:32] LABS: Basophils # (auto) 0.03 K/uL (0-0.2); Basophils % (auto) 0.3 %; Eosinophils # (auto) 0.15 K/uL (0-0.5); Eosinophils % (auto) 1.4 %; Hematocrit (blood only) 42.8 % (42-52); Hemoglobin 13.5 g/dL (14.0-18.0); Immature Granulocytes # (auto) 0.45 K/uL (0.00-0.02); Immature Granulocytes % (auto) 4.3 %; Lymphocytes # (auto) 1.89 K/uL (1.2-3.4); Mean Corpuscular Hgb Conc 31.5 g/dL (32-36); Mean Corpuscular Volume 88.4 fL (80-100); Mean Platelet Volume 10.9 fL (7.4-10.4); Monocytes # (auto) 0.89 K/uL (0.11-0.59); Monocytes % (auto) 8.5 %; Neutrophils # (auto) 7.09 K/uL (1.4-6.5); Neutrophils % (auto) 67.5 %; Platelet Count 124 K/uL (130-400); RDW Coefficient of Variation 16.9 % (11.5-14.5); RDW Standard Deviation 54.6 fL (36.4-46.3); Red Blood Count 4.84 M/uL (4.7-6.1)
[2018-10-10 14:45] LABS: Alanine Aminotransferase 39 U/L (12-78); Albumin Level 3.3 gm/dl (3.4-5.0); Aspartate Aminotransferase 18 U/L (15-37); BUN Creatinine Ratio 18.7 (10-20); Blood Urea Nitrogen 24 mg/dl (7-18); Calcium 8.7 mg/dl (8.5-10.1); Carbon Dioxide 37 mmol/L (21-32); Chloride 97 mmol/L (98-107); Est GFR (African American) 76.2; Est GFR (Non-African American) 65.7; Glucose 114 mg/dl (70-99); Potassium 3.9 mmol/L (3.5-5.1); Sodium 137 mmol/L (136-145)
[2018-10-10 14:49] LABS: Albumin Globulin Ratio 0.9 (0.9-2); Alkaline Phosphatase 77 U/L (45-117); Bilirubin,Total 0.7 mg/dl (0.2-1); Globulin 3.6 gm/dl (2.5-4.0); Total Protein 6.9 gm/dl (6.4-8.2); Troponin I < 0.015 ng/ml (0-0.045)
[2018-10-10 15:03] LABS: Influenza A virus by PCR Neg for Influ A (Neg); Influenza B virus by PCR Neg for Influ B (Neg)
--- NOTE | 2018-10-10 15:07 | XRay Report ---
XR chest 1V portable HISTORY: 48 years-old Male Dyspnea acute shortness of breath COMPARISON: Chest radiograph 09/15/2018 TECHNIQUE: Portable AP view of the chest FINDINGS: Cardiac silhouette is enlarged, unchanged. Mild pulmonary vascular congestion without overt pulmonary edema. There is no pneumothorax, large pleural effusion or lobar airspace consolidation. Subsegmenta l bibasilar opacities are suggestive of atelectasis. Bones of the chest appear grossly intact. IMPRESSION: 1. Cardiomegaly with pulmonary vascular congestion. 2. Subsegmental bibasilar opacities favor atelectasis. The above report was generated using voice recognition software. It may contain grammatical, syntax o r spelling errors. Electronically signed by: Kem Apodaca M.D. 10/10/2018 3:05 PM
[2018-10-10] MEDS ORDERED: KETOROLAC (**for OR use only**) 30 MG/ML VIAL IV STA (15:24)
[2018-10-10] MEDS ORDERED: KETOROLAC 30 MG/ML VIAL ONE (15:35)
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
[2018-10-10 16:16] LABS: NT Pro B Type Natriuretic Pept 135 pg/ml (0-450)
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
[2018-10-10] MEDS ORDERED: FUROSEMIDE 40 MG/4 ML VIAL IV SCH ×3 (16:50→17:45)
[2018-10-10] MEDS ORDERED: POLYETHYLENE (MIRALAX) 17 GM PACK PO PRN (18:19)
[2018-10-10] MEDS ORDERED: MAGNESIUM HYDROXIDE SUSP 30 ML UDC PO PRN (18:19)
[2018-10-10] MEDS ORDERED: ALUMINUM/MAGNESIUM SUSP 30 ML UDC PO PRN (18:19)
[2018-10-10] MEDS ORDERED: BUPRENORPHINE NALOXONE SL SCH (18:19)
[2018-10-10] MEDS ORDERED: TRAZODONE HCL 50 MG TAB PO PRN (18:19)
[2018-10-10 19:41] LABS: Prothrombin Time 9.9 Seconds (9.0-12.0)
[2018-10-10] MEDS: TRAMADOL HCL 50 MG TABLET PO PRN ×2 (19:46→23:33)
[2018-10-10] MEDS: FUROSEMIDE 40 MG in SYRINGE 0 ML IV SCH (19:47)
[2018-10-10] MEDS: cloNIDine HCl 0.1 MG TAB PO SCH (19:48)
[2018-10-10] MEDS: CYCLOBENZAPRINE HCL 10 MG TAB PO SCH (19:49)
[2018-10-10] MEDS: DOCUSATE SODIUM 100 MG CAP PO SCH (19:49)
[2018-10-10] MEDS: GABAPENTIN 600 MG TAB PO SCH (19:50)
[2018-10-10] MEDS: GABAPENTIN 400 MG CAP PO SCH (19:50)
[2018-10-10] MEDS: ALBUT/IPRATROP 3MG/0.5MG NEB 3 ML VIAL NEB SCH ×2 (20:04→23:25)
[2018-10-10] MEDS: BUPRENORPHINE/NALOXONE 8/2 MG TAB SL SCH (20:12)
[2018-10-10] MEDS: POLYETHYLENE (MIRALAX) 17 GM PACK PO SCH (20:13)
[2018-10-10] MEDS: methylPREDNISolone 40 MG in SYRINGE 0 ML IV SCH (20:13)
[2018-10-10] MEDS ORDERED: ACETAMINOPHEN 325 MG TAB PO PRN (21:54)
[2018-10-10 21:55] LABS: Appearance Urine Clear (Clear); Bilirubin Urine Negative (Negative); Blood Urine Negative (Negative); Color Urine Yellow; Glucose Urine UA Negative (Negative); Ketones Urine Negative (Negative); Leukocyte Esterase Urine Negative (Negative); Nitrite Urine Negative (Negative); Protein Urine Negative (Negative); Urobilinogen Urine Negative (Negative)
[2018-10-10] MEDS: HEPARIN SOD 5,000 UNIT/0.5 ML VIAL SQ SCH (22:07)
[2018-10-11] MEDS: methylPREDNISolone 40 MG in SYRINGE 0 ML IV SCH ×4 (01:40→19:31)
[2018-10-11] MEDS: ALBUT/IPRATROP 3MG/0.5MG NEB 3 ML VIAL NEB SCH ×6 (03:36→22:59)
[2018-10-11] MEDS: TRAMADOL HCL 50 MG TABLET PO PRN ×5 (04:01→19:30)
[2018-10-11] MEDS: HEPARIN SOD 5,000 UNIT/0.5 ML VIAL SQ SCH ×3 (05:29→21:59)
[2018-10-11 06:29] LABS: Basophils # (auto) 0.01 K/uL (0-0.2); Basophils % (auto) 0.1 %; Hematocrit (blood only) 39.3 % (42-52); Hemoglobin 12.6 g/dL (14.0-18.0); Immature Granulocytes # (auto) 0.18 K/uL (0.00-0.02); Immature Granulocytes % (auto) 1.6 %; Lymphocytes # (auto) 0.83 K/uL (1.2-3.4); Lymphocytes % (auto) 7.4 %; Mean Corpuscular Hgb Conc 32.1 g/dL (32-36); Mean Corpuscular Volume 87.7 fL (80-100); Mean Platelet Volume 10.7 fL (7.4-10.4); Monocytes # (auto) 0.39 K/uL (0.11-0.59); Monocytes % (auto) 3.5 %; Neutrophils # (auto) 9.75 K/uL (1.4-6.5); Neutrophils % (auto) 87.4 %; Platelet Count 128 K/uL (130-400); RDW Coefficient of Variation 16.7 % (11.5-14.5); RDW Standard Deviation 53.2 fL (36.4-46.3); Red Blood Count 4.48 M/uL (4.7-6.1); White Blood Count 11.16 K/uL (4.8-10.8)
[2018-10-11 07:05] LABS: BUN Creatinine Ratio 16.6 (10-20); Calcium 8.7 mg/dl (8.5-10.1); Est GFR (Non-African American) 56.1; Magnesium 2.5 mg/dl (1.8-2.4); Potassium 3.8 mmol/L (3.5-5.1)
[2018-10-11] MEDS ORDERED: INFLUENZA VIRUS QUAD VACCINE 0.5 ML SYR IM ONE (08:00)
[2018-10-11] MEDS ORDERED: INFLUENZA ADMINISTRATION CHARGE ONE (08:00)
[2018-10-11] MEDS: POLYETHYLENE (MIRALAX) 17 GM PACK PO SCH (09:31)
[2018-10-11] MEDS: BUPRENORPHINE/NALOXONE 8/2 MG TAB SL SCH ×3 (09:33→19:30)
[2018-10-11] MEDS: cloNIDine HCl 0.1 MG TAB PO SCH ×2 (09:33→19:26)
[2018-10-11] MEDS: DOCUSATE SODIUM 100 MG CAP PO SCH ×2 (09:33→19:26)
[2018-10-11] MEDS: FLUTICASONE PROPIONATE NA SPR 16 GM BTL NAE SCH (09:33)
[2018-10-11] MEDS: GABAPENTIN 600 MG TAB PO SCH ×3 (09:34→19:27)
[2018-10-11] MEDS: DULOXETINE HCL 60 MG CAP PO SCH (09:34)
[2018-10-11] MEDS: CYCLOBENZAPRINE HCL 10 MG TAB PO SCH ×3 (09:34→19:26)
[2018-10-11] MEDS: GABAPENTIN 400 MG CAP PO SCH ×3 (09:34→19:25)
[2018-10-11] MEDS: PANTOprazole 40 MG TAB PO SCH (09:35)
[2018-10-11] MEDS: ASPIRIN 81 MG ECTAB PO SCH (09:35)
[2018-10-11] MEDS: POTASSIUM CHLORIDE 10 MEQ TABCR PO SCH (09:35)
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
[2018-10-11] MEDS ORDERED: BUPRENORPHINE NALOXONE SL SCH (12:00)
--- NOTE | 2018-10-11 14:50 | Hospitalist Progress Note ---
Date of Service October 11, 2018 Assessment & Plan (1) Hypoxia: 2/2 COPD +/- acute diastolic CHF exacerbation. Cont steroids, neb treatments, and Levaquin daily. FLu negative. Cont Lasix per Cardiology. (2) Diastolic CHF, acute: last echocardiogram done 06/2018, EF WNL, stress echo done as well negative for inducible ischemia -recent weight gain, may be exacerbated in setting of recent steroid use -daily standing weights -lasix 40mg daily -heart healthy, low NA diet -Strict I and O with Lloyd in place. -ASA daily (3) COPD exacerbation: -plan as above -levaquin 750mg IV daily -IV Solumedrol 40mg QID -pulmonary toilet with incentive spirometry, duoneb routine -patient would most likely benefit from inhaled corticosteroid, but states he can't afford -Consult pulmonary (4) Chronic pain disorder: -continue current regimen of suboxone, tramadol, flexeril, gabapentin -Oxycodone added PRN for added breakthrough pain in his foot. (5) HTN (hypertension): at goal, cont current regimen (6) Depression with anxiety: -continue cymbalta and hydroxizine -trazodone prn for insomnia (7) Obstipation: -daily colace, miralax for bowel regularity (8) Tobacco abuse disorder: -encourage smoking cessation (9) DVT prophylaxis: -heparin 5,000units SQ, monitor PLT, 124 today Disposition: D/C to home Follow up: with PCP Dr. Hogan upon discharge Patient was seen in collaboration with Dr. Grace, please see addendum Subjective doing well ROS is negative. Physical Exam 2 Vital Signs (Past 24 Hours): Last Vital Signs Temp 36.8 C 10/11/18 11:54 Pulse 93 H 10/11/18 11:54 Resp 18 10/11/18 11:54 BP 148/81 H 10/11/18 11:54 Pulse Ox 97 10/11/18 11:54 GEN: obese HEENT: MMM CV: reg rate LUNGS: CTAB ABD: soft, NTND EXT: trace edema. Results & Data Laboratory Results Short CBC 10/11/18 Range/Units 06:14 WBC 11.16 H (4.8-10.8) K/uL Hgb 12.6 L (14.0-18.0) g/dL Hct 39.3 L (42-52) % Plt Count 128 L (130-400) K/uL BMP 10/10/18 10/11/18 14:10 06:14 Sodium 137 135 L Potassium 3.9 3.8 Chloride 97 L 98 Carbon Dioxide 37 H 28 BUN 24 H 24 H Creatinine 1.28 1.46 H Glucose 114 H 230 H Calcium 8.7 8.7 Cardiac Enzymes 10/10/18 10/10/18 10/11/18 Range/Units 14:10 19:01 00:57 Troponin I < 0.015 < 0.015 < 0.015 (0-0.045) ng/ml Liver Function 10/10/18 Range/Units 14:10 Total Bilirubin 0.7 (0.2-1) mg/dl AST 18 (15-37) U/L ALT 39 (12-78) U/L Alkaline Phosphatase 77 (45-117) U/L Albumin 3.3 L (3.4-5.0) gm/dl Urine 10/10/18 Range/Units 21:01 Urine Color Yellow Urine Appearance Clear (Clear) Urine pH 7.0 (4.5-7.5) Ur Specific [place] 1.010 (1.000-1.030) Urine Protein Negative (Negative) Urine Glucose (UA) Negative (Negative) Medications Administered Current Inpatient Medications Acetaminophen (Tylenol) 325 mg PO Q4H PRN PRN Reason: Mild Pain Stop: 11/09/18 21:53 Al Hydrox/Mg Hydrox/Simethicone (Maalox) 15 ml PO Q4H PRN PRN Reason: Dyspepsia Stop: 11/09/18 18:18 Albuterol (Duoneb) 3 ml NEB Q4R EMPERATRIZ Stop: 11/09/18 19:59 Last Admin: 10/11/18 11:09 Dose: 3 ml Aspirin (Ecotrin Ectab) 81 mg PO DAILY EMPERATRIZ Stop: 11/10/18 08:59 Last Admin: 10/11/18 09:35 Dose: 81 mg Buprenorphine/Naloxone (Suboxone 8 Mg/2 Mg) 1 tab SL DAILY@0900,1200,2100 EMPERATRIZ Stop: 11/09/18 20:59 Last Admin: 10/11/18 11:41 Dose: 1 tab Clonidine HCl (Catapres) 0.1 mg PO BID EMPERATRIZ Stop: 11/09/18 20:59 Last Admin: 10/11/18 09:33 Dose: 0.1 mg Cyclobenzaprine HCl (Flexeril) 10 mg PO TID [facility] Stop: 11/09/18 20:59 Last Admin: 10/11/18 09:34 Dose: 10 mg Docusate Sodium (Colace) 100 mg PO BID EMPERATRIZ Stop: 11/09/18 20:59 Last Admin: 10/11/18 09:33 Dose: 100 mg Duloxetine HCl (Cymbalta) 60 mg PO DAILY EMPERATRIZ Stop: 11/10/18 08:59 Last Admin: 10/11/18 09:34 Dose: 60 mg Fluticasone Propionate (Flonase) 2 sprays HANSA DAILY [facility] Stop: 11/10/18 08:59 Last Admin: 10/11/18 09:33 Dose: 2 sprays Gabapentin (Neurontin) 400 mg PO TID [facility] Stop: 11/09/18 20:59 Last Admin: 10/11/18 09:34 Dose: 400 mg Gabapentin (Neurontin) 600 mg PO TID [facility] Stop: 11/09/18 20:59 Last Admin: 10/11/18 09:34 Dose: 600 mg Heparin Sodium (Porcine) (Heparin Sodium (Porcine)) 5,000 units SQ Q8 [facility] Stop: 11/09/18 21:59 Last Admin: 10/11/18 05:29 Dose: 5,000 units Hydroxyzine HCl (Vistaril) 25 mg PO Q6H PRN PRN Reason: Anxiety Stop: 11/09/18 18:18 Last Admin: 10/11/18 09:33 Dose: 25 mg Levofloxacin/Dextrose (Levaquin/D5w) 750 mg in 150 mls @ 100 mls/hr IV Q24H [facility] ; Protocol Stop: 10/18/18 14:59 Furosemide 40 mg/ Syringe 4 mls @ 4 mls/min IV DAILY [facility] Stop: 11/09/18 18:44 Last Admin: 10/10/18 19:47 Dose: 4 mls/min Methylprednisolone 40 mg/ (Syringe) 0.64 mls @ 1.5 mls/min IV Q6H [facility] Stop: 11/09/18 19:59 Last Admin: 10/11/18 09:39 Dose: 1.5 mls/min Magnesium Hydroxide (Milk Of Magnesia) 30 ml PO Q12H PRN PRN Reason: Constipation Stop: 11/09/18 18:18 Ondansetron HCl (Zofran) 4 mg IV Q6H PRN PRN Reason: Nausea Stop: 11/09/18 18:18 Pantoprazole Sodium (Protonix) 40 mg PO DAILY EMPERATRIZ Stop: 11/10/18 08:59 Last Admin: 10/11/18 09:35 Dose: 40 mg Polyethylene Glycol (Miralax Powder Packet) 17 gm PO DAILY PRN PRN Reason: Constipation Stop: 11/09/18 18:18 Polyethylene Glycol (Miralax Powder Packet) 17 gm PO DAILY EMPERATRIZ Stop: 11/09/18 18:59 Last Admin: 10/11/18 09:31 Dose: 17 gm Potassium Chloride (Klor-Con M10) 10 meq PO DAILY EMPERATRIZ Stop: 11/10/18 08:59 Last Admin: 10/11/18 09:35 Dose: 10 meq Tramadol HCl (Ultram) 100 mg PO Q4H PRN PRN Reason: Pain Stop: 11/09/18 18:18 Last Admin: 10/11/18 12:35 Dose: 100 mg Trazodone HCl (Desyrel) 50 mg PO QPM PRN PRN Reason: Insomnia Stop: 11/09/18 18:18
--- NOTE | 2018-10-11 14:55 | Ultrasound Report ---
US venous doppler LE BI CLINICAL HISTORY: Bilateral lower extremity swelling. History of prior pulmonary embolism. COMPARISON STUDY: 06/30/2018 FINDINGS: Real-time and color flow Doppler imaging were performed. Flow was seen within the femoral, popliteal and calf veins with no intraluminal thrombus demonstrated. The saphenous vein is patent. Th e study was difficult from a technical standpoint due to the patient's body habitus. There is limited visualization of the calf vessels due to edema. IMPRESSION: No evidence of lower extremity DVT. Electronically signed by: Lius Castro M.D. 10/11/2018 2:54 PM
[2018-10-11] MEDS: LEVOFLOXACIN/D5W 750 MG/150 ML BAG IV SCH (15:18)
[2018-10-11] MEDS: NICOTINE 21 MG/24 HR TDSY TD SCH (17:26)
[2018-10-11] MEDS: OXYCODONE HCL IR 5 MG TAB (IMMEDIATE RELEASE) PO PRN (18:05)
[2018-10-12] MEDS: TRAMADOL HCL 50 MG TABLET PO PRN ×5 (00:01→22:07)
[2018-10-12] MEDS: OXYCODONE HCL IR 5 MG TAB (IMMEDIATE RELEASE) PO PRN ×4 (00:02→19:08)
[2018-10-12] MEDS: ALBUT/IPRATROP 3MG/0.5MG NEB 3 ML VIAL NEB SCH ×6 (03:00→23:14)
[2018-10-12] MEDS: methylPREDNISolone 40 MG in SYRINGE 0 ML IV SCH ×4 (03:20→20:17)
[2018-10-12] MEDS: HEPARIN SOD 5,000 UNIT/0.5 ML VIAL SQ SCH ×3 (05:26→21:30)
[2018-10-12 05:53] LABS: Hematocrit (blood only) 38.4 % (42-52); Hemoglobin 12.9 g/dL (14.0-18.0); Mean Corpuscular Hgb Conc 33.6 g/dL (32-36); Mean Corpuscular Volume 87.3 fL (80-100); Mean Platelet Volume 10.2 fL (7.4-10.4); Platelet Count 130 K/uL (130-400); RDW Coefficient of Variation 16.7 % (11.5-14.5); RDW Standard Deviation 53.8 fL (36.4-46.3)
[2018-10-12 06:32] LABS: BUN Creatinine Ratio 22.5 (10-20); Calcium 9.3 mg/dl (8.5-10.1); Creatinine Clr Calc Pharmacy 154.9 ml/min; Est GFR (African American) 96.8; Est GFR (Non-African American) 83.5; Potassium 4.4 mmol/L (3.5-5.1)
[2018-10-12] MEDS: POLYETHYLENE (MIRALAX) 17 GM PACK PO SCH (08:09)
[2018-10-12] MEDS: TAMSULOSIN HCL 0.4 MG CAP PO SCH (08:09)
[2018-10-12] MEDS: DOCUSATE SODIUM 100 MG CAP PO SCH ×2 (08:09→21:29)
[2018-10-12] MEDS: POTASSIUM CHLORIDE 10 MEQ TABCR PO SCH (08:09)
[2018-10-12] MEDS: DULOXETINE HCL 60 MG CAP PO SCH (08:09)
[2018-10-12] MEDS: ASPIRIN 81 MG ECTAB PO SCH (08:09)
[2018-10-12] MEDS: PANTOprazole 40 MG TAB PO SCH (08:09)
[2018-10-12] MEDS: GABAPENTIN 400 MG CAP PO SCH ×3 (08:09→21:29)
[2018-10-12] MEDS: FLUTICASONE PROPIONATE NA SPR 16 GM BTL NAE SCH (08:10)
[2018-10-12] MEDS: FUROSEMIDE 40 MG in SYRINGE 0 ML IV SCH (08:10)
[2018-10-12] MEDS: cloNIDine HCl 0.1 MG TAB PO SCH ×2 (08:10→21:29)
[2018-10-12] MEDS: GABAPENTIN 600 MG TAB PO SCH ×3 (08:11→21:29)
[2018-10-12] MEDS: BUPRENORPHINE/NALOXONE 8/2 MG TAB SL SCH ×3 (09:12→21:35)
[2018-10-12] MEDS: CYCLOBENZAPRINE HCL 10 MG TAB PO SCH ×3 (09:25→21:29)
--- NOTE | 2018-10-12 09:51 | Cardiology Progress Note ---
Date of Service October 12, 2018 Supervising Physician Attestation: I have personally performed a history and physical examination on the patient. I agree with the physician field administrative assistant's findings and plan as documented with the following additions. Subjective: Patient comfortable in bed. Lloyd catheter in place. 4.1 L of urine output noted yesterday, 1.7 L of urine output noted thus far today Exam: 1-2+ bilateral lower extremity edema Data: Renal function improved, creatinine 1.05 today down from 1.46 yesterday Assessment and Plan: Multifactorial volume overload -Given additional p.m. dose of furosemide now 10/12/18 3:37 PM, then 40 mg IV daily in the morning again tomorrow. -add potassium sparing diuretic eplerenone 25 mg daily. -He describes Chronic urinary hesitancy consistent with underlying prostatism and therefore Flomax added until patient diuretic effect looking forward for when we withdraw his Lloyd catheter -DVT prophylaxis: Continue subcutaneous heparin 5000 units subcu every 8 hours Dick Cardoza, Assessment & Plan (1) Hypoventilation associated with obesity: (2) Diastolic CHF, acute: Patient with evidence of progressive volume overload, multifactorial with recent high dose steroid use for COPD exacerbation and diastolic HF on the basis of hypertensive heart disease, morbid obesity. Also on high dose gapabentin, likely contributing Furosemide 40 mg IV daily. Titrate as tolerated. Monitor renal function/electrolytes Monitor I+O's. Fluid restriction of 1500 ml Low salt/sodium diet Venous duplex ordered - negative for DVT Prior echo/dobutamine in June with normal biventricular function, no inducible ischemia. No significant valvular disease noted but quality was limited due to body habitus. Cardiac enzymes negative. EKG without ischemic changes. (3) COPD exacerbation: Treatment per hospitalist with antibiotics, steroids, nebs (4) Morbid obesity: Patient reports he did not qualify for O2 on discharge previously. Needs sleep study. (5) History of pulmonary embolism: (6) HTN (hypertension): Consider transitioning to JUMANA/ARB pending renal function with diuresis. Not on beta nasim due to underlying pulmonary disease/wheezing. Subjective Patient seen/examined. Reports cough and wheeze slowly improving. Still reports ongoing chest "pressure ", likely due to congestion. SOB improving. Edema remains stable. Good diuresis overnight. Telemetry reviewed: NSR/Sinus tachycardia Review of Systems All systems reviewed & are unremarkable except as noted in HPI & below Physical Exam 2 Vital Signs (Past 24 Hours): Last Vital Signs Temp 37.0 C 10/12/18 03:53 Pulse 98 H 10/12/18 08:00 Resp 18 10/12/18 06:53 BP 143/86 H 10/12/18 03:53 Pulse Ox 97 10/12/18 06:53 Constitutional: + morbidly obese; no acute distress Neck: + thick neck Respiratory: Auscultation: + diminished lung sounds, + rales and + wheezes Cardiovascular: Rate/Rhythm: regular rate Heart Sounds: no murmur (distant heart sounds) Extremities: + edema (2-3+ b/l) Gastrointestinal (Abdomen): Inspection/Auscultation: + abdomen distended Psychiatric: Orientation: alert, oriented x 3 and cooperative Results & Data Laboratory Results 10/12/18 10/12/18 Range/Units 05:34 05:34 WBC 15.30 H (4.8-10.8) K/uL RBC 4.40 L (4.7-6.1) M/uL Hgb 12.9 L (14.0-18.0) g/dL Hct 38.4 L (42-52) % MCV 87.3 (80-100) fL MCH 29.3 (25-34) pg MCHC 33.6 (32-36) g/dL RDW Std Deviation 53.8 H (36.4-46.3) fL RDW Coeff of Megan 16.7 H (11.5-14.5) % Plt Count 130 (130-400) K/uL MPV 10.2 (7.4-10.4) fL Sodium 136 (136-145) mmol/L Potassium 4.4 D (3.5-5.1) mmol/L Chloride 103 (98-107) mmol/L Carbon Dioxide 31 (21-32) mmol/L Anion Gap 2.0 L (3-11) BUN 24 H (7-18) mg/dl Creatinine 1.05 (0.6-1.4) mg/dl Est Cr Clr Drug Dosing 154.9 ml/min Est GFR ( Amer) 96.8 Est GFR (Non-Af Amer) 83.5 BUN/Creatinine Ratio 22.5 H (10-20) Glucose 182 H (70-99) mg/dl Calcium 9.3 (8.5-10.1) mg/dl Diagnostic Findings Venous duplex - negative for DVT b/l.
[2018-10-12] MEDS ORDERED: FUROSEMIDE 40 MG in SYRINGE 0 ML IV ONE (15:31)
[2018-10-12] MEDS: LEVOFLOXACIN/D5W 750 MG/150 ML BAG IV SCH (15:57)
[2018-10-12] MEDS: NICOTINE 21 MG/24 HR TDSY TD SCH (16:45)
--- NOTE | 2018-10-12 22:07 | Hospitalist Progress Note ---
Date of Service October 12, 2018 Assessment & Plan (1) Hypoxia: Presented with hypoxia, probably due to combination of CHF and COPD. Specific problems as noted below. (2) Diastolic CHF, acute: Probable acute on chronic left ventricular diastolic heart failure. Continue diuretics. (3) COPD exacerbation: Exacerbation of COPD. Respiratory status improved. Continue levofloxacin, steroids, bronchodilators. (4) Chronic pain disorder: Chronic pain syndrome. Experiencing sciatica and right foot pain secondary to fracture. Receiving Suboxone, tramadol, gabapentin, oxycodone. Patient requesting addition of hydromorphone which does not seem to be necessary or appropriate at this time. (5) HTN (hypertension): Continue clonidine. (6) Depression with anxiety: Continue duloxetine and hydroxyzine. (7) Obstipation: Bowel regimen is ordered. (8) Tobacco abuse disorder: Smoking cessation counseling. (9) DVT prophylaxis: SQ heparin. Ambulate. (10) Discharge planning issues: Anticipated discharge to home. Family Medicine follow-up with Dr. Hogan. Subjective Recheck for multiple problems. Patient was seen in his room around 2100. No fever. Less short of breath. No anginal symptoms. No nausea or vomiting. Constipated. Still has Lloyd cath. Having pain secondary to sciatica and right foot fracture; requesting hydromorphone. Physical Exam 2 Vital Signs (Past 24 Hours): Last Vital Signs Temp 36.7 C 10/12/18 19:11 Pulse 78 10/12/18 19:30 Resp 20 10/12/18 19:30 BP 166/50 H 10/12/18 19:11 Pulse Ox 97 10/12/18 19:30 Constitutional: no acute distress Respiratory: no respiratory distress Auscultation: + wheezes Cardiovascular: Rate/Rhythm: regular rate and regular rhythm Heart Sounds: no gallop, no murmur and no cardiac rub Vessels: + JVD Extremities: + edema (1+ pretibial); no calf tenderness Gastrointestinal (Abdomen): normal bowel sounds, soft, nontender, no hepatosplenomegaly Skin: no rashes, warm and dry Psychiatric: Orientation: alert and oriented x 3 Results & Data Laboratory Results Laboratory Results - last 24 hr 10/12/18 10/12/18 05:34 05:34 WBC 15.30 H RBC 4.40 L Hgb 12.9 L Hct 38.4 L MCV 87.3 MCH 29.3 MCHC 33.6 RDW Std Deviation 53.8 H RDW Coeff of Megan 16.7 H Plt Count 130 MPV 10.2 Sodium 136 Potassium 4.4 D Chloride 103 Carbon Dioxide 31 Anion Gap 2.0 L BUN 24 H Creatinine 1.05 Est Cr Clr Drug Dosing 154.9 Est GFR ( Amer) 96.8 Est GFR (Non-Af Amer) 83.5 BUN/Creatinine Ratio 22.5 H Glucose 182 H Calcium 9.3
[2018-10-13] MEDS: OXYCODONE HCL IR 5 MG TAB (IMMEDIATE RELEASE) PO PRN ×4 (01:07→20:11)
[2018-10-13] MEDS: methylPREDNISolone 40 MG in SYRINGE 0 ML IV SCH ×4 (01:07→20:15)
[2018-10-13] MEDS: TRAMADOL HCL 50 MG TABLET PO PRN (03:00)
[2018-10-13] MEDS: ALBUT/IPRATROP 3MG/0.5MG NEB 3 ML VIAL NEB SCH ×6 (03:59→23:30)
[2018-10-13] MEDS: HEPARIN SOD 5,000 UNIT/0.5 ML VIAL SQ SCH ×3 (05:46→21:55)
[2018-10-13 05:52] LABS: Hematocrit (blood only) 38.8 % (42-52); Hemoglobin 12.4 g/dL (14.0-18.0); Mean Corpuscular Volume 87.6 fL (80-100); Mean Platelet Volume 10.6 fL (7.4-10.4); Platelet Count 135 K/uL (130-400); Red Blood Count 4.43 M/uL (4.7-6.1); White Blood Count 12.63 K/uL (4.8-10.8)
[2018-10-13 06:24] LABS: BUN Creatinine Ratio 26.6 (10-20); Calcium 9.5 mg/dl (8.5-10.1); Est GFR (African American) 94.6; Est GFR (Non-African American) 81.7; Potassium 4.6 mmol/L (3.5-5.1)
[2018-10-13] MEDS: POTASSIUM CHLORIDE 10 MEQ TABCR PO SCH (08:10)
[2018-10-13] MEDS: ASPIRIN 81 MG ECTAB PO SCH (08:10)
[2018-10-13] MEDS: GABAPENTIN 400 MG CAP PO SCH ×3 (08:10→20:16)
[2018-10-13] MEDS: TRAMADOL HCL 50 MG TABLET PO SCH ×3 (08:10→21:52)
[2018-10-13] MEDS: DOCUSATE SODIUM 100 MG CAP PO SCH ×2 (08:10→20:15)
[2018-10-13] MEDS: DULOXETINE HCL 60 MG CAP PO SCH (08:10)
[2018-10-13] MEDS: SPIRONOLACTONE 25 MG TAB PO SCH (08:10)
[2018-10-13] MEDS: cloNIDine HCl 0.1 MG TAB PO SCH ×2 (08:10→20:15)
[2018-10-13] MEDS: TAMSULOSIN HCL 0.4 MG CAP PO SCH (08:10)
[2018-10-13] MEDS: FLUTICASONE PROPIONATE NA SPR 16 GM BTL NAE SCH (08:11)
[2018-10-13] MEDS: POLYETHYLENE (MIRALAX) 17 GM PACK PO SCH (08:11)
[2018-10-13] MEDS: CYCLOBENZAPRINE HCL 10 MG TAB PO SCH ×3 (08:11→20:16)
[2018-10-13] MEDS: BUPRENORPHINE/NALOXONE 8/2 MG TAB SL SCH ×3 (08:16→21:52)
--- NOTE | 2018-10-13 08:42 | Cardiology Progress Note ---
Date of Service October 13, 2018 Supervising Physician Attestation: I have personally performed a history and physical examination on the patient. I agree with the physician faculty research assistant's findings and plan as documented with the following additions. Subjective: Patient with progressive interval improvement. Net fluid loss 3.6 L in 24 Hr. Exam: Edema mildly improved, Lloyd catheter in place draining clear yellow urine Data: Kidney function stable. Assessment and Plan: Multifactorial volume overload. -Keep Lloyd catheter in today, consider DC of Lloyd catheter 10/14/18. -Has had furosemide 40 mg IV this morning. -He is still volume overloaded, I think we should continue the IV for the time being. Rather than transitioning to oral for tomorrow. -Continue spironolactone and Flomax. We will give an additional dose of furosemide this afternoon while Lloyd catheter is in place. DVT prophylaxis: Subcutaneous heparin 5000 units every 8 hours. [] Dick Cardoza, DO Assessment & Plan (1) Diastolic CHF, acute: Multifactorial volume overload (steroids, gabapentin, and perhaps diastolic heart failure secondary to obesity and HTN). Continue IV furosemide today then transition to oral torsemide in the morning of 10/14/2018 Continue spironolactone Discontinue supplemental potassium Monitor renal function/electrolytes Continue sodium and fluild restrictions. Consider reduction in gabapentin dosing. (2) COPD exacerbation: Treatment per hospitalist with antibiotics, steroids, nebs (3) Morbid obesity: Recommend sleep evaluation (4) HTN (hypertension): Consider JUMANA/ARB pending renal function with diuresis. Not on beta nasim due to underlying pulmonary disease/wheezing. Subjective Patient seen and examined. Chart, medications, and telemetry reviewed. Telemetry: Normal sinus rhythm/sinus tachycardia. Improving dyspnea, typically becoming dyspneic with ADL's. No new or worsening chest pain. No palpitations. Fluid retention has improved but not resolved with note made of recent steroid use as well as high dose gabapentin therapy. I/O's from 10/10/2018 to 10/13/2018: - 6,842 mL's overall. Physical Exam 2 Vital Signs (Past 24 Hours): Last Vital Signs Temp 36.6 C 10/13/18 07:16 Pulse 84 10/13/18 07:16 Resp 20 10/13/18 07:16 BP 146/77 H 10/13/18 07:16 Pulse Ox 96 10/13/18 07:16 Physical Exam: General: A&Ox3. NAD. Elevated BMI. HEENT: Normocephalic. Atraumatic. PER. Conjunctiva pink, sclera clear. Neck: No carotid bruits. No overt JVD. Heart: Distant heart sounds. Appears regular at 90 bpm. I could not appreciate any murmurs. Lungs: Diminished. Decreased. No wheezes. Abdomen: +BS. Soft. Nontender. No masses or organomegaly. Lloyd catheter draining mildly concentrated urine. Extremities: Trace to 1+ edema. No clubbing. No cyanosis. Limited neurological examination is without focal deficits. Results & Data Laboratory Results Laboratory Results - last 48 hr 10/12/18 10/12/18 10/13/18 05:34 05:34 05:36 WBC 15.30 H 12.63 H RBC 4.40 L 4.43 L Hgb 12.9 L 12.4 L Hct 38.4 L 38.8 L MCV 87.3 87.6 MCH 29.3 28.0 MCHC 33.6 32.0 RDW Std Deviation 53.8 H 54.0 H RDW Coeff of Megan 16.7 H 17.0 H Plt Count 130 135 MPV 10.2 10.6 H Sodium 136 Potassium 4.4 D Chloride 103 Carbon Dioxide 31 Anion Gap 2.0 L BUN 24 H Creatinine 1.05 Est Cr Clr Drug Dosing 154.9 Est GFR ( Amer) 96.8 Est GFR (Non-Af Amer) 83.5 BUN/Creatinine Ratio 22.5 H Glucose 182 H Calcium 9.3 10/13/18 05:36 WBC RBC Hgb Hct MCV MCH MCHC RDW Std Deviation RDW Coeff of Megan Plt Count MPV Sodium 134 L Potassium 4.6 Chloride 100 Carbon Dioxide 32 Anion Gap 2.0 L BUN 28 H Creatinine 1.07 Est Cr Clr Drug Dosing 152.0 Est GFR ( Amer) 94.6 Est GFR (Non-Af Amer) 81.7 BUN/Creatinine Ratio 26.6 H Glucose 206 H Calcium 9.5 Diagnostic Findings July 01, 2018 TTE Interpretation Summary ([facility]): EF 60-65%. No regional WMA' s. RV not well visualized. RV grossly normal in size and function. July 06, 2018 DSE Interpretation Summary ([facility]): No echocardiographic evidence of myocardial ischemia having achieved heart rate adequate for diagnostic purposes.
[2018-10-13] MEDS ORDERED: FUROSEMIDE 40 MG in SYRINGE 0 ML IV SCH (09:00)
[2018-10-13] MEDS ORDERED: [UNRECOGNIZED DRUG - OTHER] PO SCH (09:00)
[2018-10-13] MEDS ORDERED: INSULIN GLARGINE SOLOSTAR 100 UNITS/ML 3 ML PEN SC ONE (09:57)
[2018-10-13] MEDS ORDERED: GLUCOSE 40% GEL 15 GM TUBE PO PRN (10:04)
[2018-10-13] MEDS ORDERED: CARBOHYDRATES FOR HYPOGLYCEMIA PO PRN (10:04)
[2018-10-13] MEDS ORDERED: DEXTROSE 50% 50 ML SYRINGE IV PRN (10:04)
[2018-10-13] MEDS ORDERED: GLUCOSE 10 TABS/TUBE PO PRN (10:04)
[2018-10-13] MEDS ORDERED: GLUCAGON FOR INJ 1 MG VIAL IM PRN (10:04)
[2018-10-13] MEDS: GABAPENTIN 600 MG TAB PO SCH ×3 (10:20→20:16)
[2018-10-13] MEDS: PANTOprazole 40 MG TAB PO SCH (10:20)
[2018-10-13] MEDS: levoFLOXacin 750 MG TAB PO SCH (12:03)
[2018-10-13] MEDS: INSULIN ASPART 100 UNITS/ML 3 ML PEN SC SCH ×3 (12:04→21:51)
[2018-10-13] MEDS: NICOTINE 21 MG/24 HR TDSY TD SCH (16:47)
[2018-10-13] MEDS ORDERED: FUROSEMIDE 40 MG in SYRINGE 0 ML IV ONE (17:00)
--- NOTE | 2018-10-13 20:36 | Hospitalist Progress Note ---
Date of Service October 13, 2018 Assessment & Plan (1) Hypoxia: Presented with hypoxia, probably due to combination of CHF and COPD. May also have sleep apnea and / or obesity hypoventilation syndrome. Specific problems as noted below. Check nocturnal oximetry and 2-step exercise oximetry prior to discharge. Outpatient sleep study recommended. (2) Diastolic CHF, acute: Probable acute on chronic left ventricular diastolic heart failure. Continue IV diuretics. (3) COPD exacerbation: Exacerbation of COPD. Respiratory status improved. Continue levofloxacin, steroids, bronchodilators. (4) Chronic pain disorder: Chronic pain syndrome. Experiencing sciatica and right foot pain secondary to fracture. Receiving Suboxone, tramadol, gabapentin, oxycodone. Patient requesting addition of hydromorphone which does not seem to be necessary or appropriate at this time. Concerns about tramadol - SSRI interaction discussed with patient. (5) HTN (hypertension): Continue clonidine. (6) Hyperglycemia: Hyperglycemia secondary to steroids. Check hemoglobin A1C. FBS today = 206. Lantus / NovoLog per protocol. Taper steroids. (7) Depression with anxiety: Continue duloxetine and hydroxyzine. (8) Obstipation: Bowel regimen is ordered. (9) Tobacco abuse disorder: Smoking cessation counseling. (10) DVT prophylaxis: SQ heparin. Ambulate. (11) Discharge planning issues: Anticipated discharge to home. Family Medicine follow-up with Dr. Hogan. Subjective Recheck for multiple problems. Patient was seen in his room around 1999. No fever. Less short of breath. No anginal symptoms. No nausea or vomiting. Still has Lloyd cath. Ongoing concerns about pain management; not happy about receiving only TID dosing of tramadol- usually takes it more often at home. Finds it difficulty to follow low sodium diet. Physical Exam 2 Vital Signs (Past 24 Hours): Last Vital Signs Temp 36.7 C 10/13/18 19:57 Pulse 105 H 10/13/18 19:57 Resp 18 10/13/18 19:57 BP 134/72 10/13/18 19:57 Pulse Ox 18 L 10/13/18 19:57 Constitutional: no acute distress Respiratory: no respiratory distress Auscultation: + wheezes (diffuse,mild ) Cardiovascular: Rate/Rhythm: regular rate and regular rhythm Heart Sounds: no gallop, no murmur and no cardiac rub Extremities: + edema (1-2+ pretibial) ; no calf tenderness Gastrointestinal (Abdomen): normal bowel sounds, soft, nontender, no hepatosplenomegaly Skin: no rashes, warm and dry Psychiatric: Orientation: alert and oriented x 3 Results & Data Laboratory Results Short CBC 10/13/18 Range/Units 05:36 WBC 12.63 H (4.8-10.8) K/uL Hgb 12.4 L (14.0-18.0) g/dL Hct 38.8 L (42-52) % Plt Count 135 (130-400) K/uL BMP 10/13/18 05:36 Sodium 134 L Potassium 4.6 Chloride 100 Carbon Dioxide 32 BUN 28 H Creatinine 1.07 Glucose 206 H Calcium 9.5
[2018-10-13] MEDS: INSULIN GLARGINE SOLOSTAR 100 UNITS/ML 3 ML PEN SC SCH (21:48)
[2018-10-14] MEDS: KETOROLAC 30 MG/ML VIAL IV PRN ×3 (00:38→23:49)
[2018-10-14] MEDS: OXYCODONE HCL IR 5 MG TAB (IMMEDIATE RELEASE) PO PRN ×4 (02:11→21:23)
[2018-10-14] MEDS: ALBUT/IPRATROP 3MG/0.5MG NEB 3 ML VIAL NEB SCH ×6 (03:38→22:52)
[2018-10-14] MEDS: HEPARIN SOD 5,000 UNIT/0.5 ML VIAL SQ SCH ×3 (05:21→21:47)
[2018-10-14 06:02] LABS: Estimated Average Glucose 154 mg/dl
[2018-10-14 06:21] LABS: BUN Creatinine Ratio 26.7 (10-20); Calcium 9.7 mg/dl (8.5-10.1); Creatinine Clr Calc Pharmacy 131.9 ml/min; Magnesium 2.8 mg/dl (1.8-2.4); Potassium 4.5 mmol/L (3.5-5.1)
[2018-10-14] MEDS: SPIRONOLACTONE 25 MG TAB PO SCH (08:46)
[2018-10-14] MEDS: PANTOprazole 40 MG TAB PO SCH (08:46)
[2018-10-14] MEDS: predniSONE 20 MG TAB PO SCH (08:46)
[2018-10-14] MEDS: GABAPENTIN 600 MG TAB PO SCH ×3 (08:46→21:11)
[2018-10-14] MEDS: CYCLOBENZAPRINE HCL 10 MG TAB PO SCH ×3 (08:46→21:10)
[2018-10-14] MEDS: DULOXETINE HCL 60 MG CAP PO SCH (08:46)
[2018-10-14] MEDS: POLYETHYLENE (MIRALAX) 17 GM PACK PO SCH (08:46)
[2018-10-14] MEDS: ASPIRIN 81 MG ECTAB PO SCH (08:46)
[2018-10-14] MEDS: DOCUSATE SODIUM 100 MG CAP PO SCH ×2 (08:46→21:10)
[2018-10-14] MEDS: TAMSULOSIN HCL 0.4 MG CAP PO SCH (08:46)
[2018-10-14] MEDS: GABAPENTIN 400 MG CAP PO SCH ×3 (08:46→21:12)
[2018-10-14] MEDS: INSULIN GLARGINE SOLOSTAR 100 UNITS/ML 3 ML PEN SC SCH ×2 (08:47→21:10)
[2018-10-14] MEDS: INSULIN ASPART 100 UNITS/ML 3 ML PEN SC SCH ×4 (08:50→21:11)
[2018-10-14] MEDS: cloNIDine HCl 0.1 MG TAB PO SCH ×2 (08:53→21:10)
[2018-10-14] MEDS: FLUTICASONE PROPIONATE NA SPR 16 GM BTL NAE SCH (08:53)
[2018-10-14] MEDS ORDERED: FUROSEMIDE 40 MG in SYRINGE 0 ML IV SCH (09:00)
[2018-10-14] MEDS ORDERED: TORSEMIDE 20 MG TAB PO SCH (09:00)
[2018-10-14] MEDS: BUPRENORPHINE/NALOXONE 8/2 MG TAB SL SCH ×3 (09:28→21:23)
--- NOTE | 2018-10-14 09:54 | Cardiology Progress Note ---
Date of Service October 14, 2018 Supervising Physician Attestation: I have personally performed a history and physical examination on the patient. I agree with the physician specimen preparation assistant's findings and plan as documented with the following additions. Subjective: Patient still feels a little bit swollen, but overall he is trending toward improvement. Significant urine output noted on his intake and output summary. Lloyd catheter remains in place Exam: Mild lower extremity Assessment and Plan: Multifactorial volume overloaded as noted below -Transition to oral torsemide. Leave Lloyd catheter in for today DVT prophylaxis: Subcutaneous heparin 5000 units every 8 hours Dick Cardoza, DO Assessment & Plan (1) Diastolic CHF, acute: Multifactorial volume overload (steroids, gabapentin, and perhaps diastolic heart failure secondary to obesity and HTN). Continue IV furosemide today then transition to oral torsemide in the morning of 10/15/2018 Continue spironolactone Monitor renal function/electrolytes Continue sodium and fluild restrictions. Consider reduction in gabapentin dosing. (2) COPD exacerbation: Treatment per hospitalist with antibiotics, steroids, nebs (3) Morbid obesity: Recommend sleep evaluation (4) HTN (hypertension): He is not on beta nasim therapy secondary to his underlying pulmonary disease/wheezing. Consider JUMANA/ARB if needed down the road (BP currently well controlled). Subjective Patient seen and examined. Chart, medications, and telemetry reviewed. Stable dyspnea. + Abdominal bloating/distension. Ongoing peripheral edema. I/O's - 11,822 mL's overall. Weight is down 8.6 pounds since admission Telemetry: Normal sinus rhythm in the 90's. Physical Exam 2 Vital Signs (Past 24 Hours): Last Vital Signs Temp 36.7 C 10/14/18 07:17 Pulse 99 H 10/14/18 08:55 Resp 16 10/14/18 07:17 BP 123/77 10/14/18 08:55 Pulse Ox 93 10/14/18 07:17 Physical Exam: General: A&Ox3. NAD. Elevated BMI. HEENT: Normocephalic. Atraumatic. PER. Conjunctiva pink, sclera clear. Neck: No carotid bruits. No overt JVD. Heart: Distant heart sounds. Appears regular at 90 bpm. I could not appreciate any murmurs. Lungs: Diminished. Decreased. Expiratory wheeze. Abdomen: +BS. Soft. Nontender. No masses or organomegaly. Lloyd catheter draining mildly concentrated urine. Extremities: Trace to 1+ edema, left greater than right. No clubbing. No cyanosis. Limited neurological examination is without focal deficits. Results & Data Laboratory Results Laboratory Results - last 24 hr 10/13/18 10/13/18 10/13/18 11:11 16:45 20:18 Sodium Potassium Chloride Carbon Dioxide Anion Gap BUN Creatinine Est Cr Clr Drug Dosing Est GFR ( Amer) Est GFR (Non-Af Amer) BUN/Creatinine Ratio Glucose POC Glucose 283 H 144 H 173 H Estimat Average Glucose Hemoglobin A1c Calcium Magnesium TSH 10/14/18 10/14/18 10/14/18 05:25 05:25 07:48 Sodium 134 L Potassium 4.5 Chloride 96 L Carbon Dioxide 32 Anion Gap 6.0 BUN 33 H Creatinine 1.23 Est Cr Clr Drug Dosing 131.9 Est GFR ( Amer) 80.0 Est GFR (Non-Af Amer) 69.0 BUN/Creatinine Ratio 26.7 H Glucose 196 H POC Glucose 163 H Estimat Average Glucose 154 Hemoglobin A1c 7.0 H Calcium 9.7 Magnesium 2.8 H TSH 0.450
[2018-10-14] MEDS: TRAMADOL HCL 50 MG TABLET PO SCH ×4 (10:34→23:44)
[2018-10-14] MEDS: levoFLOXacin 750 MG TAB PO SCH (12:22)
--- NOTE | 2018-10-14 13:30 | XRay Report ---
XR chest 1V portable CLINICAL HISTORY: Shortness of breath. COMPARISON STUDY: Chest radiograph October 10, 2018. FINDINGS: There is no pneumothorax. No definite pleural effusion is noted. Cardiomegaly is unchanged. There is pulmonary vascular congestion. No lobar consolidation. IMPRESSION: Pulmonary vascular congestion. Electronically signed by: Evelio Corbin M.D. 10/14/2018 1:29 PM
[2018-10-14] MEDS ORDERED: FUROSEMIDE 20 MG in SYRINGE 0 ML IV ONE (17:00)
[2018-10-14] MEDS ORDERED: COUGH DROP (SUGAR FREE) LOZ 24 LOZ/1 BOX BUCCAL PRN (17:15)
[2018-10-14] MEDS: NICOTINE 21 MG/24 HR TDSY TD SCH (17:16)
--- NOTE | 2018-10-14 20:52 | Hospitalist Progress Note ---
Date of Service October 14, 2018 Assessment & Plan (1) Hypoxia: Presented with hypoxia, probably due to combination of CHF and COPD. May also have sleep apnea and / or obesity hypoventilation syndrome. Specific problems as noted below. Nocturnal oximetry night of 10/13 demonstrated O2 sats as low as 75%; will need nocturnal O2 at home. Check 2-step exercise oximetry prior to discharge. Outpatient sleep study recommended. (2) Diastolic CHF, acute: Probable acute on chronic left ventricular diastolic heart failure +/- right- sided heart failure. Continue IV diuretics. (3) COPD exacerbation: Exacerbation of COPD. Respiratory status improved. Received levofloxacin x 5 days- will DC. Taper steroids, continue bronchodilators. (4) Chronic pain disorder: Chronic pain syndrome. Experiencing sciatica and right foot pain secondary to fracture. Receiving Suboxone, tramadol, gabapentin, oxycodone. Patient requesting addition of hydromorphone which does not seem to be necessary or appropriate at this time. Concerns about tramadol - SSRI interaction discussed with patient. (5) HTN (hypertension): Continue clonidine. (6) Hyperglycemia: Hyperglycemia secondary to steroids. Check hemoglobin A1C. FBS today = 163. Lantus / NovoLog per protocol. Tapering steroids. (7) Depression with anxiety: Continue duloxetine and hydroxyzine. (8) Obstipation: Bowel regimen as ordered. (9) Tobacco abuse disorder: Smoking cessation counseling. (10) DVT prophylaxis: SQ heparin. Ambulate. (11) Discharge planning issues: Anticipated discharge to home. Family Medicine follow-up with Dr. Hogan. Subjective Recheck for multiple problems. Patient was seen in his room around 2029. visiting. No fever. [place] more SOB earlier today, better now. No anginal symptoms. No nausea or vomiting. Still has Lloyd cath. Trying to follow low sodium diet. Tires easily. Physical Exam 2 Vital Signs (Past 24 Hours): Last Vital Signs Temp 37.0 C 10/14/18 19:52 Pulse 108 H 10/14/18 20:03 Resp 16 10/14/18 20:03 BP 138/58 L 10/14/18 19:52 Pulse Ox 93 10/14/18 20:03 Constitutional: no acute distress Respiratory: no respiratory distress Auscultation: + wheezes (diffuse,mild ) Cardiovascular: Rate/Rhythm: regular rate and regular rhythm Heart Sounds: no gallop, no murmur and no cardiac rub Vessels: + JVD Extremities: + edema (1-2+ pretibial); no calf tenderness Gastrointestinal (Abdomen): normal bowel sounds, soft, nontender, no hepatosplenomegaly Skin: no rashes, warm and dry Psychiatric: Orientation: alert and oriented x 3
[2018-10-14] MEDS: SODIUM CHLORIDE 0.65% NA SOLN 45 ML (OCEAN) SCH (21:46)
[2018-10-15] MEDS: ALBUT/IPRATROP 3MG/0.5MG NEB 3 ML VIAL NEB SCH ×6 (02:56→23:03)
[2018-10-15] MEDS: OXYCODONE HCL IR 5 MG TAB (IMMEDIATE RELEASE) PO PRN ×3 (05:00→17:46)
[2018-10-15] MEDS: HEPARIN SOD 5,000 UNIT/0.5 ML VIAL SQ SCH ×3 (06:00→21:27)
[2018-10-15] MEDS: TRAMADOL HCL 50 MG TABLET PO SCH ×3 (06:00→17:46)
[2018-10-15 06:59] LABS: Calcium 9.2 mg/dl (8.5-10.1); Creatinine Clr Calc Pharmacy 110.6 ml/min; Est GFR (African American) 64.5; Est GFR (Non-African American) 55.6; Potassium 3.9 mmol/L (3.5-5.1)
[2018-10-15] MEDS: POLYETHYLENE (MIRALAX) 17 GM PACK PO SCH (08:59)
[2018-10-15] MEDS ORDERED: TORSEMIDE 20 MG TAB PO SCH (09:00)
[2018-10-15] MEDS: GABAPENTIN 400 MG CAP PO SCH ×3 (09:00→21:23)
[2018-10-15] MEDS: TAMSULOSIN HCL 0.4 MG CAP PO SCH (09:02)
[2018-10-15] MEDS: POTASSIUM CHLORIDE 20 MEQ TABCR PO SCH ×2 (09:02→21:23)
[2018-10-15] MEDS: CYCLOBENZAPRINE HCL 10 MG TAB PO SCH ×3 (09:02→21:25)
[2018-10-15] MEDS: SPIRONOLACTONE 25 MG TAB PO SCH (09:02)
[2018-10-15] MEDS: predniSONE 20 MG TAB PO SCH (09:03)
[2018-10-15] MEDS: PANTOprazole 40 MG TAB PO SCH (09:03)
[2018-10-15] MEDS: FLUTICASONE PROPIONATE NA SPR 16 GM BTL NAE SCH (09:04)
[2018-10-15] MEDS: GABAPENTIN 600 MG TAB PO SCH ×3 (09:04→21:23)
[2018-10-15] MEDS: ASPIRIN 81 MG ECTAB PO SCH (09:04)
[2018-10-15] MEDS: FUROSEMIDE 40 MG in SYRINGE 0 ML IV SCH ×2 (09:04→14:52)
[2018-10-15] MEDS: DULOXETINE HCL 60 MG CAP PO SCH (09:05)
[2018-10-15] MEDS: DOCUSATE SODIUM 100 MG CAP PO SCH ×2 (09:05→21:25)
[2018-10-15] MEDS: SODIUM CHLORIDE 0.65% NA SOLN 45 ML (OCEAN) SCH ×3 (09:05→21:34)
[2018-10-15] MEDS: cloNIDine HCl 0.1 MG TAB PO SCH ×2 (09:05→21:25)
[2018-10-15] MEDS: INSULIN ASPART 100 UNITS/ML 3 ML PEN SC SCH ×4 (09:07→21:28)
[2018-10-15] MEDS: INSULIN GLARGINE SOLOSTAR 100 UNITS/ML 3 ML PEN SC SCH ×2 (09:08→21:28)
[2018-10-15] MEDS: BUPRENORPHINE/NALOXONE 8/2 MG TAB SL SCH ×3 (09:10→22:08)
[2018-10-15] MEDS: levoFLOXacin 750 MG TAB PO SCH (11:29)
[2018-10-15] MEDS: KETOROLAC 30 MG/ML VIAL IV PRN (14:50)
--- NOTE | 2018-10-15 16:47 | Cardiology Progress Note ---
Date of Service October 15, 2018 Assessment & Plan (1) Diastolic CHF, acute: Multifactorial volume overload secondary to steroids, excessive doses of gabapentin, morbid obesity with suspected DARIA, venous insufficiency, and perhaps diastolic heart failure. Normal biventricular function per echocardiogram May, and June. Creatinine trending upward with significant diuresis per chart review. Recommend transition to oral torsemide. Continue Aldactone. Repeat basic metabolic panel in the a.m. IV diuretics will be placed on hold at this time pending review of a.m. labs. Recommend discontinuation/reduction of high dose gabapentin. This issue has been problematic due to chronic pain. (2) COPD exacerbation: Treatment per hospitalist with antibiotics, steroids, nebs (3) Morbid obesity: Recommend sleep evaluation (4) HTN (hypertension): Blood pressure is controlled. Subjective Patient seen and examined at the bedside. Fluid balance remains significantly negative per review of chart, however, weight has not significantly declined. Patient continues to note edema and dyspnea at rest. Taking high-dose gabapentin. Creatinine trending upward on IV diuretic therapy. Denies chest pain or shortness of breath. Notes intermittent issues with anxiety. Telemetry demonstrates sinus rhythm and sinus tachycardia. Review of Systems All systems reviewed & are unremarkable except as noted in HPI & below Physical Exam 2 Vital Signs (Past 24 Hours): Last Vital Signs Temp 36.6 C 10/15/18 15:05 Pulse 99 H 10/15/18 15:18 Resp 16 10/15/18 15:18 BP 134/78 10/15/18 15:05 Pulse Ox 93 10/15/18 15:18 Physical Exam: General: NAD, AAO x3, obese. HEENT: Normocephalic. Atraumatic. Conjunctiva pink, no scleral icterus. Neck: No carotid bruits, the carotid upstrokes are brisk. No JVD. No HJR Heart: Regular normal S-1 and S-2 no S-3 or S-4 gallop. No murmurs or rub appreciated. PMI is not displaced. No RV heave. Lungs: Clear bilateral without rales , rhonchi, or wheeze. Abdomen: Normal bowel sounds. Soft. Nontender. No masses or organomegaly. No abdominal bruits. Extremities: 1+ bilateral nonpitting pretibial ankle edema. No clubbing , cyanosis. Pulses: radial=2/4, Dorsalis pedis =2/4, posterior tibial=2/4. Neuro: Cranial nerves grossly intact. No focal motor deficit.
--- NOTE | 2018-10-15 16:53 | Hospitalist Progress Note ---
Date of Service October 15, 2018 Assessment & Plan (1) Hypoxia: Presented with hypoxia, probably due to combination of CHF and COPD. May also have sleep apnea and / or obesity hypoventilation syndrome. Specific problems as noted below. Nocturnal oximetry night of 10/13 demonstrated O2 sats as low as 75%; will need nocturnal O2 at home. Check 2-step exercise oximetry prior to discharge. Outpatient sleep study recommended. (2) Diastolic CHF, acute: Probable acute on chronic left ventricular diastolic heart failure +/- right- sided heart failure. Brisk diuresis on IV diuretics, but weights remain about the same. Patient advised to reduce fluid intake; may need formal fluid restriction. Continue IV diuretics. (3) COPD exacerbation: Exacerbation of COPD. Respiratory status improved. Received levofloxacin x 5 days- will DC. Taper steroids, continue bronchodilators. (4) Chronic pain disorder: Chronic pain syndrome. Experiencing sciatica and right foot pain secondary to fracture. Receiving Suboxone, tramadol, gabapentin, oxycodone. Patient requested addition of hydromorphone which does not seem to be necessary or appropriate at this time. Concerns about tramadol - SSRI interaction discussed with patient. (5) HTN (hypertension): Continue clonidine. (6) Hyperglycemia: Hyperglycemia secondary to steroids. Check hemoglobin A1C. FBS today = 163. Lantus / NovoLog per protocol. Tapering steroids. (7) Depression with anxiety: Continue duloxetine and hydroxyzine. (8) Obstipation: Bowel regimen as ordered. (9) Tobacco abuse disorder: Smoking cessation counseling. (10) DVT prophylaxis: SQ heparin. Ambulate. (11) Discharge planning issues: Anticipated discharge to home. Family Medicine follow-up with Dr. Hogan. Subjective Recheck for multiple problems. Patient was seen in his room around 1630. No fever. Feels anxious today. Occasional cough. No anginal symptoms. No nausea or vomiting. No diarrhea. Still has Lloyd cath and is reluctant to have it removed. Trying to follow low sodium diet. Tires easily. Chronic pain + acute pain due to sciatica and foot fx; asking for oxycodone to be increased. Physical Exam 2 Vital Signs (Past 24 Hours): Last Vital Signs Temp 36.6 C 10/15/18 15:05 Pulse 99 H 10/15/18 15:18 Resp 16 10/15/18 15:18 BP 134/78 10/15/18 15:05 Pulse Ox 93 10/15/18 15:18 Constitutional: no acute distress Respiratory: no respiratory distress Auscultation: + wheezes (diffuse,mild ) Cardiovascular: Rate/Rhythm: regular rate and regular rhythm Heart Sounds: no gallop, no murmur and no cardiac rub Vessels: + JVD Extremities: + edema (1-2+ pretibial); no calf tenderness Gastrointestinal (Abdomen): normal bowel sounds, soft, nontender, no hepatosplenomegaly Skin: no rashes, warm and dry Psychiatric: Orientation: alert and oriented x 3 Results & Data Laboratory Results [facility] 10/15/18 05:33 Sodium 134 L Potassium 3.9 Chloride 97 L Carbon Dioxide 32 BUN 38 H Creatinine 1.47 H Glucose 147 H Calcium 9.2
[2018-10-15] MEDS: NICOTINE 21 MG/24 HR TDSY TD SCH (17:45)
[2018-10-16] MEDS: TRAMADOL HCL 50 MG TABLET PO SCH ×4 (00:06→18:26)
[2018-10-16] MEDS: OXYCODONE HCL IR 5 MG TAB (IMMEDIATE RELEASE) PO PRN ×4 (00:06→18:26)
[2018-10-16] MEDS: ALBUT/IPRATROP 3MG/0.5MG NEB 3 ML VIAL NEB SCH ×6 (03:27→23:07)
[2018-10-16] MEDS: KETOROLAC 30 MG/ML VIAL IV PRN ×2 (03:56→16:09)
[2018-10-16 06:05] LABS: Hematocrit (blood only) 40.4 % (42-52); Hemoglobin 12.9 g/dL (14.0-18.0); Mean Corpuscular Hgb Conc 31.9 g/dL (32-36); Mean Corpuscular Volume 87.1 fL (80-100); Mean Platelet Volume 10.5 fL (7.4-10.4); Platelet Count 136 K/uL (130-400); RDW Coefficient of Variation 17.1 % (11.5-14.5); RDW Standard Deviation 54.2 fL (36.4-46.3); Red Blood Count 4.64 M/uL (4.7-6.1); White Blood Count 13.79 K/uL (4.8-10.8)
[2018-10-16] MEDS: HEPARIN SOD 5,000 UNIT/0.5 ML VIAL SQ SCH ×2 (06:08→14:56)
[2018-10-16 06:45] LABS: BUN Creatinine Ratio 32.9 (10-20); Calcium 9.3 mg/dl (8.5-10.1); Creatinine Clr Calc Pharmacy 131.7 ml/min; Potassium 3.9 mmol/L (3.5-5.1)
[2018-10-16] MEDS: DULOXETINE HCL 60 MG CAP PO SCH (08:25)
[2018-10-16] MEDS: FUROSEMIDE 40 MG in SYRINGE 0 ML IV SCH ×2 (08:25→14:52)
[2018-10-16] MEDS: CYCLOBENZAPRINE HCL 10 MG TAB PO SCH ×3 (08:26→20:51)
[2018-10-16] MEDS: GABAPENTIN 600 MG TAB PO SCH ×3 (08:26→20:49)
[2018-10-16] MEDS: PANTOprazole 40 MG TAB PO SCH (08:26)
[2018-10-16] MEDS: TAMSULOSIN HCL 0.4 MG CAP PO SCH (08:26)
[2018-10-16] MEDS: DOCUSATE SODIUM 100 MG CAP PO SCH ×2 (08:27→20:49)
[2018-10-16] MEDS: ASPIRIN 81 MG ECTAB PO SCH (08:27)
[2018-10-16] MEDS: cloNIDine HCl 0.1 MG TAB PO SCH ×2 (08:28→20:48)
[2018-10-16] MEDS: POLYETHYLENE (MIRALAX) 17 GM PACK PO SCH (08:28)
[2018-10-16] MEDS: POTASSIUM CHLORIDE 20 MEQ TABCR PO SCH ×2 (08:29→20:50)
[2018-10-16] MEDS: GABAPENTIN 400 MG CAP PO SCH ×3 (08:29→20:49)
[2018-10-16] MEDS: FLUTICASONE PROPIONATE NA SPR 16 GM BTL NAE SCH (08:30)
[2018-10-16] MEDS: SPIRONOLACTONE 25 MG TAB PO SCH (08:30)
[2018-10-16] MEDS: SODIUM CHLORIDE 0.65% NA SOLN 45 ML (OCEAN) SCH ×3 (08:30→21:15)
[2018-10-16] MEDS: INSULIN ASPART 100 UNITS/ML 3 ML PEN SC SCH ×4 (08:36→21:15)
[2018-10-16] MEDS: INSULIN GLARGINE SOLOSTAR 100 UNITS/ML 3 ML PEN SC SCH ×2 (08:37→21:14)
[2018-10-16] MEDS: BUPRENORPHINE/NALOXONE 8/2 MG TAB SL SCH ×3 (08:43→20:48)
[2018-10-16] MEDS: predniSONE 50 MG TAB PO SCH (08:49)
--- NOTE | 2018-10-16 15:52 | Hospitalist Progress Note ---
Date of Service October 16, 2018 Assessment & Plan (1) Hypoxia: Presented with hypoxia, probably due to combination of CHF and COPD. May also have sleep apnea and / or obesity hypoventilation syndrome. Now with pulmonary embolism. Specific problems as noted below. Nocturnal oximetry night of 10/13 demonstrated O2 sats as low as 75%; will need nocturnal O2 at home. Check 2-step exercise oximetry prior to discharge. Outpatient sleep study recommended. (2) Diastolic CHF, acute: Probable acute on chronic left ventricular diastolic heart failure +/- right- sided heart failure. Brisk diuresis on IV diuretics, but weights remain about the same. Patient advised to reduce fluid intake; try fluid restriction of 3000 mls / day. Continue IV diuretics. (3) COPD exacerbation: Exacerbation of COPD. Respiratory status improved. Received levofloxacin x 5 days- will DC. Taper prednisone to 50 mg daily. Continue bronchodilators. (4) Pulmonary embolism: Venous duplex of lower extremities negative on 10/11/18. Received SQ heparin for VTE prophylaxis Patient complained of anxiety and chest tightness. No pleuritic chest pain or hemoptysis. O2 sats improved since admission. CTA today demonstrated bilateral segmental and subsegmental PE's; no apparent RV strain per CT criteria. Prior history of PE. At chronic risk due to morbid obesity and relative inactivity. Will probably need long-term anticoagulation. Not candidate for enoxaparin or DOAC's because of BMI. Start IV heparin; transition to warfarin. Recheck venous duplex of lower extremities. (5) Chronic pain disorder: Chronic pain syndrome. Experiencing sciatica and right foot pain secondary to fracture. Receiving Suboxone, tramadol, gabapentin, oxycodone. Concerns about tramadol - SSRI interaction discussed with patient. Patient takes gabapentin which may be contributing to edema, but best to continue it to minimize use of narcotics. Toradol had been ordered PRN, but best to stop in light of PE and full anticoagulation. Patient requested addition of hydromorphone again, but it does not seem to be necessary or appropriate at this time. (6) HTN (hypertension): Continue clonidine. (7) Hyperglycemia: Hyperglycemia secondary to steroids. Check hemoglobin A1C. FBS today = 130. Lantus / NovoLog per protocol. Tapering steroids. (8) Depression with anxiety: Continue duloxetine and hydroxyzine. (9) Obstipation: Bowel regimen as ordered. (10) Morbid obesity: Wt 200 kg. BMI 60. AHA diet. (11) Tobacco abuse disorder: Smoking cessation counseling. (12) DVT prophylaxis: Received SQ heparin. Full anticoagulation with IV heparin --> warfarin initiated. Ambulate. (13) Discharge planning issues: Anticipated discharge to home. Family Medicine follow-up with Dr. Hogan. Subjective Recheck for multiple problems. Patient was seen in his room around 1540. No fever. Feels anxious. Occasional cough. Chest feels tight; no pleuritic chest pain. No anginal symptoms. No nausea or vomiting. No diarrhea. Still has Lloyd cath and is reluctant to have it removed. Chronic pain + acute pain due to sciatica and foot fracture. Physical Exam 2 Vital Signs (Past 24 Hours): Last Vital Signs Temp 36.9 C 10/16/18 14:58 Pulse 105 H 10/16/18 15:18 Resp 18 10/16/18 15:18 BP 107/62 10/16/18 14:58 Pulse Ox 94 10/16/18 15:18 Constitutional: no acute distress Respiratory: no respiratory distress Auscultation: + wheezes (diffuse,mild ) Cardiovascular: Rate/Rhythm: regular rate, regular rhythm and + tachycardic Heart Sounds: no gallop, no murmur and no cardiac rub Vessels: + JVD Extremities: + edema (2+ pretibial); no calf tenderness Gastrointestinal (Abdomen): normal bowel sounds, soft, nontender, no hepatosplenomegaly Skin: no rashes, warm and dry Psychiatric: Orientation: alert and oriented x 3 Results & Data Laboratory Results Short CBC 10/16/18 Range/Units 05:24 WBC 13.79 H (4.8-10.8) K/uL Hgb 12.9 L (14.0-18.0) g/dL Hct 40.4 L (42-52) % Plt Count 136 (130-400) K/uL BMP 10/16/18 05:24 Sodium 133 L Potassium 3.9 Chloride 96 L Carbon Dioxide 32 BUN 40 H Creatinine 1.23 Glucose 171 H Calcium 9.3 Diagnostic Findings CTA CHEST: IMPRESSION: 1. Bilateral acute segmental and subsegmental pulmonary emboli with a greater embolus burden on the right. No CT evidence of right heart strain. 2. Peripheral groundglass opacity in the left upper lobe/lingula may represent pulmonary hemorrhage or early infarct though the appearance is nonspecific. 3. Bibasilar atelectasis or scarring. The report will be called/faxed according to standard departmental protocol. Electronically signed by: Joey Merida M.D. 10/16/2018 5:25 PM Dictated: 10/16/18 1719 Transcribed: 10/16/18 1719
[2018-10-16] MEDS ORDERED: OPTIRAY 320 125ml IV PRN (17:16)
--- NOTE | 2018-10-16 17:26 | CT Scan Report ---
CT angio chest PE protocol CLINICAL HISTORY: 48 years-old Male presenting with chest pain and shortness of breath, clinical conc nigel for pulmonary embolus. TECHNIQUE: Multidetector CT angiography of the chest was performed after administration of intravenou s contrast. 3-D volumetric and/or maximum intensity projection (MIP) images were subsequently reconst ructed for review. IV contrast: 119 mL of Optiray 320. A dose lowering technique was used consistent with the principles of ALARA (as low as reasonably achievable). COMPARISON: 07/19/2017. CT DOSE (mGy.cm): The estimated cumulative dose is 796.22 mGy.cm. FINDINGS: Station Tender topogram: Unremarkable. Pulmonary vasculature: The study is adequate for assessment of the pulmonary vascular tree. Bilateral segmental and subsegme ntal pulmonary emboli with a greater embolus burden on the right in the right upper lobe. Main pulmon uziel artery top normal in size. No flattening of the interventricular septum. No intracardiac filling defect. No reflux of contrast into the hepatic veins. Remaining chest: On soft tissue windows, normal thyroid and thoracic inlet. No axillary, supraclavicular, hilar, or me diastinal lymphadenopathy. Normal aorta. Normal heart size. No pericardial or pleural effusion. Upper abdomen normal. On lung windows, no pneumothorax. Central airways patent. Bandlike opacities in the lung bases primar shmuel. Peripheral groundglass opacity in the anterior segment of the right upper lobe/superior segment of the lingula. On bone windows, normal osseous structures. IMPRESSION: 1. Bilateral acute segmental and subsegmental pulmonary emboli with a greater embolus burden on the right. No CT evidence of right heart strain. 2. Peripheral groundglass opacity in the left upper lobe/lingula may represent pulmonary hemorrhage or early infarct though the appearance is nonspecific. 3. Bibasilar atelectasis or scarring. The report will be called/faxed according to standard departmental protocol. Electronically signed by: Joey Merida M.D. 10/16/2018 5:25 PM
[2018-10-16] MEDS: NICOTINE 21 MG/24 HR TDSY TD SCH (18:32)
[2018-10-16] MEDS ORDERED: HEPARIN IV BOLUS 10,000 UNITS in SYRINGE 0 ML IV ONE (20:00)
[2018-10-16] MEDS: HEPARIN STANDARD DEXTROSE 25,000 UNITS/500 ML IV SCH (20:45)
[2018-10-17] MEDS: TRAMADOL HCL 50 MG TABLET PO SCH ×5 (00:15→23:41)
[2018-10-17] MEDS: OXYCODONE HCL IR 5 MG TAB (IMMEDIATE RELEASE) PO PRN ×5 (00:15→23:51)
[2018-10-17 03:03] LABS: Hematocrit (blood only) 38.8 % (42-52); Hemoglobin 12.8 g/dL (14.0-18.0); Mean Corpuscular Volume 85.7 fL (80-100); Mean Platelet Volume 10.1 fL (7.4-10.4); Nucleated RBC # (auto) 0.03 K/uL (0-0); Nucleated RBC % (auto) 0.2 %; Platelet Count 143 K/uL (130-400); RDW Coefficient of Variation 17.2 % (11.5-14.5); RDW Standard Deviation 53.7 fL (36.4-46.3); Red Blood Count 4.53 M/uL (4.7-6.1); White Blood Count 17.49 K/uL (4.8-10.8)
[2018-10-17] MEDS: ALBUT/IPRATROP 3MG/0.5MG NEB 3 ML VIAL NEB SCH ×6 (03:04→23:19)
[2018-10-17 03:21] LABS: BUN Creatinine Ratio 29.3 (10-20); Calcium 9.1 mg/dl (8.5-10.1); Creatinine Clr Calc Pharmacy 112.5 ml/min; Est GFR (African American) 66.1; Potassium 3.8 mmol/L (3.5-5.1)
[2018-10-17 03:39] LABS: INR 1.1 (0.9-1.1); Partial Thromboplastin Ratio 5.6; Prothrombin Time 10.7 Seconds (9.0-12.0)
[2018-10-17 03:43] LABS: Partial Thromboplastin Time 145.9 Seconds (21.0-31.0)
[2018-10-17 05:44] LABS: Partial Thromboplastin Ratio 3.2
[2018-10-17 05:48] LABS: Partial Thromboplastin Time 84.2 Seconds (21.0-31.0)
[2018-10-17] MEDS: FLUTICASONE PROPIONATE NA SPR 16 GM BTL NAE SCH (09:03)
[2018-10-17] MEDS: CYCLOBENZAPRINE HCL 10 MG TAB PO SCH ×3 (09:03→20:24)
[2018-10-17] MEDS: SPIRONOLACTONE 25 MG TAB PO SCH (09:04)
[2018-10-17] MEDS: cloNIDine HCl 0.1 MG TAB PO SCH ×2 (09:04→20:25)
[2018-10-17] MEDS: DOCUSATE SODIUM 100 MG CAP PO SCH ×2 (09:05→20:25)
[2018-10-17] MEDS: DULOXETINE HCL 60 MG CAP PO SCH (09:05)
[2018-10-17] MEDS: TAMSULOSIN HCL 0.4 MG CAP PO SCH (09:05)
[2018-10-17] MEDS: ASPIRIN 81 MG ECTAB PO SCH (09:06)
[2018-10-17] MEDS: FUROSEMIDE 40 MG in SYRINGE 0 ML IV SCH ×2 (09:06→16:52)
[2018-10-17] MEDS: POTASSIUM CHLORIDE 20 MEQ TABCR PO SCH ×2 (09:06→20:25)
[2018-10-17] MEDS: GABAPENTIN 400 MG CAP PO SCH ×3 (09:07→20:23)
[2018-10-17] MEDS: SODIUM CHLORIDE 0.65% NA SOLN 45 ML (OCEAN) SCH ×3 (09:07→20:23)
[2018-10-17] MEDS: GABAPENTIN 600 MG TAB PO SCH ×3 (09:07→20:23)
[2018-10-17] MEDS: PANTOprazole 40 MG TAB PO SCH (09:08)
[2018-10-17] MEDS: POLYETHYLENE (MIRALAX) 17 GM PACK PO SCH (09:09)
[2018-10-17] MEDS: predniSONE 50 MG TAB PO SCH (09:09)
[2018-10-17] MEDS: INSULIN GLARGINE SOLOSTAR 100 UNITS/ML 3 ML PEN SC SCH ×2 (09:09→20:31)
[2018-10-17] MEDS: INSULIN ASPART 100 UNITS/ML 3 ML PEN SC SCH ×4 (09:11→20:23)
[2018-10-17] MEDS: HEPARIN STANDARD DEXTROSE 25,000 UNITS/500 ML IV SCH ×2 (09:15→23:40)
[2018-10-17] MEDS: BUPRENORPHINE/NALOXONE 8/2 MG TAB SL SCH ×3 (09:17→20:30)
[2018-10-17 13:28] LABS: Partial Thromboplastin Ratio 2.1
--- NOTE | 2018-10-17 13:35 | Cardiology Progress Note ---
Date of Service October 17, 2018 Assessment & Plan (1) Pulmonary embolism: Continue intravenous heparin as a bridge to Coumadin. Goal INR of 2.0- 3.0. Preliminary review of resting 2D transthoracic echocardiogram demonstrates preserved left ventricular systolic function. The right ventricle was not well visualized, however, grossly normal size and function appreciated with evidence of perhaps mild pulmonary hypertension. (2) Diastolic CHF, acute: Multifactorial volume overload secondary to steroids, excessive doses of gabapentin, morbid obesity with suspected DARIA, venous insufficiency, and diastolic heart failure. Continue Lasix twice daily intravenous. Repeat basic metabolic panel in a.m. Recommend discontinuation/reduction of high dose gabapentin. (3) COPD exacerbation: Treatment per hospitalist with antibiotics, steroids, nebs (4) Morbid obesity: Recommend sleep evaluation (5) HTN (hypertension): Blood pressure controlled. Subjective Patient seen and examined at the bedside. Diagnosed with pulmonary embolus. Intravenous heparin infusing. Edema unchanged. Notes feeling mildly anxious and short of breath. No orthopnea. Denies palpitations, lightheadedness, dizziness, syncope, or near syncope. No dysrhythmias on telemetry.Telemetry demonstrates sinus rhythm and sinus tachycardia. Heart rate improved today. Review of Systems All systems reviewed & are unremarkable except as noted in HPI & below Physical Exam 2 Vital Signs (Past 24 Hours): Last Vital Signs Temp 36.8 C 10/17/18 07:26 Pulse 86 10/17/18 07:26 Resp 16 10/17/18 07:26 BP 112/85 10/17/18 07:26 Pulse Ox 98 10/17/18 07:26 Physical Exam: General: NAD, AAO x3, obese. HEENT: Normocephalic. Atraumatic. Conjunctiva pink, no scleral icterus. Neck: No carotid bruits, the carotid upstrokes are brisk. No JVD. No HJR Heart: Regular normal S-1 and S-2 no S-3 or S-4 gallop. No murmurs or rub appreciated. PMI is not displaced. No RV heave. Lungs: Clear bilateral without rales , rhonchi, or wheeze. Abdomen: Normal bowel sounds. Soft. Nontender. No masses or organomegaly. No abdominal bruits. Extremities: 1-2+ bilateral pretibial ankle edema. No clubbing, cyanosis. Pulses: radial=2/4, Dorsalis pedis =2/4, posterior tibial=2/4. Neuro : Cranial nerves grossly intact. No focal motor deficit. Results & Data Diagnostic Findings CTA chest result: 1. Bilateral acute segmental and subsegmental pulmonary emboli with a greater embolus burden on the right. No CT evidence of right heart strain. 2. Peripheral groundglass opacity in the left upper lobe/lingula may represent pulmonary hemorrhage or early infarct though the appearance is nonspecific. 3. Bibasilar atelectasis or scarring.
[2018-10-17] MEDS: KETOROLAC 30 MG/ML VIAL IV PRN (13:50)
[2018-10-17 14:02] LABS: Partial Thromboplastin Time 53.9 Seconds (21.0-31.0)
--- NOTE | 2018-10-17 16:40 | Hospitalist Progress Note ---
Date of Service October 17, 2018 Assessment & Plan (1) Hypoxia: Presented with hypoxia, probably due to combination of CHF and COPD at time of admission. May also have sleep apnea and / or obesity hypoventilation syndrome. Now with pulmonary embolism. Specific problems as noted below. Nocturnal oximetry night of 10/13 demonstrated O2 sats as low as 75%; will need nocturnal O2 at home. Check 2-step exercise oximetry prior to discharge. Outpatient sleep study recommended. Now with acute pulmonary emboli, but O2 sats stable / improved. (2) Diastolic CHF, acute: Probable acute on chronic left ventricular diastolic heart failure +/- right- sided heart failure. Brisk diuresis on IV diuretics, but weights remain about the same. Patient advised to reduce fluid intake; try fluid restriction of 3000 mls / day. Continue IV diuretics. (3) COPD exacerbation: Exacerbation of COPD. Respiratory status improved. Received levofloxacin x 5 days- will DC. Taper prednisone to 50 mg daily. Continue bronchodilators. (4) Pulmonary embolism: Venous duplex of lower extremities negative on 10/11/18. Received SQ heparin for VTE prophylaxis Patient complained of anxiety and chest tightness. No pleuritic chest pain or hemoptysis. O2 sats improved since admission. CTA today demonstrated bilateral segmental and subsegmental PE's; no apparent RV strain per CT criteria. Prior history of PE. At chronic risk due to morbid obesity and relative inactivity. Will probably need long-term anticoagulation. Not candidate for enoxaparin or DOAC's because of BMI. Started IV heparin; transition to warfarin. Recheck venous duplex of lower extremities. (5) Chronic pain disorder: Chronic pain syndrome. Experiencing sciatica and right foot pain secondary to fracture. Receiving Suboxone, tramadol, gabapentin, oxycodone. Concerns about tramadol - SSRI interaction discussed with patient. Patient takes gabapentin which may be contributing to edema, but best to continue it to minimize use of narcotics. Toradol had been ordered PRN, but stopped in light of PE and full anticoagulation. Patient again requesting addition of hydromorphone, but it does not seem to be necessary or appropriate at this time. (6) HTN (hypertension): Continue clonidine. (7) Hyperglycemia: Hyperglycemia secondary to steroids. Hemoglobin A1C was 7.0. FBS today = 138. Lantus / NovoLog per protocol. Tapering steroids. (8) Depression with anxiety: Continue duloxetine and hydroxyzine. (9) Obstipation: Bowel regimen as ordered. (10) Morbid obesity: Wt 200 kg. BMI 60. AHA diet. (11) Tobacco abuse disorder: Smoking cessation counseling. (12) DVT prophylaxis: Received SQ heparin. Full anticoagulation with IV heparin --> warfarin initiated. Ambulate. (13) Discharge planning issues: Anticipated discharge to home. Family Medicine follow-up with Dr. Hogan. Subjective Recheck for multiple problems. Patient was seen in his room around 1630. No fever. Occasional cough. No pleuritic chest pain. No anginal symptoms. No nausea or vomiting. No diarrhea. Still has Lloyd cath and is reluctant to have it removed. Chronic pain + acute pain due to sciatica and foot fracture. Requesting additional analgesics. Physical Exam 2 Vital Signs (Past 24 Hours): Last Vital Signs Temp 36.8 C 10/17/18 15:57 Pulse 99 H 10/17/18 15:57 Resp 24 10/17/18 15:57 BP 149/83 H 10/17/18 15:57 Pulse Ox 93 10/17/18 15:57 Constitutional: no acute distress Respiratory: no respiratory distress Auscultation: + wheezes (diffuse,mild ) Cardiovascular: Rate/Rhythm: regular rate and regular rhythm Heart Sounds: no gallop, no murmur and no cardiac rub Vessels: + JVD Extremities: + edema (2+ pretibial); no calf tenderness Gastrointestinal (Abdomen): normal bowel sounds, soft, nontender, no hepatosplenomegaly Skin: no rashes, warm and dry Psychiatric: Orientation: alert and oriented x 3 Results & Data Laboratory Results INR 1.1 PTT 145, 84
[2018-10-17] MEDS: WARFARIN SOD 10 MG TAB PO SCH (16:52)
[2018-10-17] MEDS: NICOTINE 21 MG/24 HR TDSY TD SCH (19:11)
[2018-10-18] MEDS: KETOROLAC 30 MG/ML VIAL IV PRN ×2 (02:51→14:51)
[2018-10-18] MEDS: ALBUT/IPRATROP 3MG/0.5MG NEB 3 ML VIAL NEB SCH ×6 (04:19→23:00)
[2018-10-18] MEDS: TRAMADOL HCL 50 MG TABLET PO SCH ×3 (06:08→18:07)
[2018-10-18] MEDS: OXYCODONE HCL IR 5 MG TAB (IMMEDIATE RELEASE) PO PRN ×3 (06:08→18:07)
[2018-10-18] MEDS: INSULIN ASPART 100 UNITS/ML 3 ML PEN SC SCH ×4 (08:52→20:45)
[2018-10-18] MEDS: BUPRENORPHINE/NALOXONE 8/2 MG TAB SL SCH ×3 (08:53→20:42)
[2018-10-18] MEDS: FUROSEMIDE 40 MG in SYRINGE 0 ML IV SCH ×2 (08:53→16:03)
[2018-10-18] MEDS: ASPIRIN 81 MG ECTAB PO SCH (08:54)
[2018-10-18] MEDS: GABAPENTIN 600 MG TAB PO SCH ×3 (08:54→20:31)
[2018-10-18] MEDS: cloNIDine HCl 0.1 MG TAB PO SCH ×2 (08:54→20:53)
[2018-10-18] MEDS: PANTOprazole 40 MG TAB PO SCH (08:54)
[2018-10-18] MEDS: CYCLOBENZAPRINE HCL 10 MG TAB PO SCH ×3 (08:55→20:28)
[2018-10-18] MEDS: DOCUSATE SODIUM 100 MG CAP PO SCH ×2 (08:55→20:42)
[2018-10-18] MEDS: SPIRONOLACTONE 25 MG TAB PO SCH (08:55)
[2018-10-18] MEDS: TAMSULOSIN HCL 0.4 MG CAP PO SCH (08:55)
[2018-10-18] MEDS: INSULIN GLARGINE SOLOSTAR 100 UNITS/ML 3 ML PEN SC SCH ×2 (08:56→20:44)
[2018-10-18] MEDS: DULOXETINE HCL 60 MG CAP PO SCH (08:56)
[2018-10-18] MEDS: POTASSIUM CHLORIDE 20 MEQ TABCR PO SCH ×2 (08:57→20:30)
[2018-10-18] MEDS: FLUTICASONE PROPIONATE NA SPR 16 GM BTL NAE SCH (08:57)
[2018-10-18] MEDS: predniSONE 50 MG TAB PO SCH (08:58)
[2018-10-18] MEDS: GABAPENTIN 400 MG CAP PO SCH ×3 (08:58→20:29)
[2018-10-18] MEDS: SODIUM CHLORIDE 0.65% NA SOLN 45 ML (OCEAN) SCH ×3 (08:58→20:42)
[2018-10-18] MEDS: POLYETHYLENE (MIRALAX) 17 GM PACK PO SCH (08:58)
[2018-10-18 08:59] LABS: INR 1.1 (0.9-1.1); Partial Thromboplastin Ratio 3.2; Prothrombin Time 11.1 Seconds (9.0-12.0)
[2018-10-18 09:03] LABS: Partial Thromboplastin Time 84.3 Seconds (21.0-31.0)
[2018-10-18 09:25] LABS: BUN Creatinine Ratio 32.9 (10-20); Calcium 9.8 mg/dl (8.5-10.1); Creatinine Clr Calc Pharmacy 124.8 ml/min; Est GFR (African American) 74.8; Est GFR (Non-African American) 64.5; Potassium 3.6 mmol/L (3.5-5.1)
--- NOTE | 2018-10-18 12:44 | Cardiology Progress Note ---
Date of Service October 18, 2018 Assessment & Plan (1) Pulmonary embolism: Continue intravenous heparin as a bridge to Coumadin. Goal INR of 2.0- 3.0. Patient will likely require long-term anticoagulation at this time. (2) Diastolic CHF, acute: Multifactorial volume overload secondary to steroids, excessive doses of gabapentin, morbid obesity with suspected DARIA, venous insufficiency, and perhaps diastolic heart failure. Creatinine trending down today. Continue IV diuresis. (3) COPD exacerbation: Treatment per hospitalist with antibiotics, steroids, nebs (4) Morbid obesity: (5) HTN (hypertension): Labile blood pressure noted. Continue to monitor. No medication changes at this time. Subjective Patient seen and examined at the bedside. He continues to feel sluggish and short of breath with exertion. Edema unchanged. Intravenous heparin infusing. No chest discomfort. Telemetry damage rate sinus rhythm and sinus tachycardia. No orthopnea or PND. Tolerating medication and diet. Offers no additional concerns/complaints at this time. Review of Systems All systems reviewed & are unremarkable except as noted in HPI & below Physical Exam 2 Vital Signs (Past 24 Hours): Last Vital Signs Temp 36.6 C 10/18/18 11:47 Pulse 106 H 10/18/18 11:47 Resp 18 10/18/18 11:47 BP 159/67 H 10/18/18 11:47 Pulse Ox 95 10/18/18 11:47 Physical Exam: General: NAD, AAO x3, obese. HEENT: Normocephalic. Atraumatic. Conjunctiva pink, no scleral icterus. Neck: No carotid bruits, the carotid upstrokes are brisk. No JVD. No HJR Heart: Regular normal S-1 and S-2 no S-3 or S-4 gallop. No murmurs or rub appreciated. PMI is not displaced. No RV heave. Lungs: Clear bilateral without rales , rhonchi, or wheeze. Abdomen: Normal bowel sounds. Soft. Nontender. No masses or organomegaly. No abdominal bruits. Extremities: 1-2+ bilateral pretibial ankle edema. No clubbing, cyanosis. Pulses: radial=2/4, Dorsalis pedis =2/4, posterior tibial=2/4. Neuro : Cranial nerves grossly intact. No focal motor deficit.
[2018-10-18] MEDS: HEPARIN STANDARD DEXTROSE 25,000 UNITS/500 ML IV SCH (14:15)
--- NOTE | 2018-10-18 15:59 | Ultrasound Report ---
US venous doppler LE CLINICAL HISTORY: 48 years-old Male presenting with pulmonary embolism. TECHNIQUE: Real-time grayscale and color and spectral Doppler ultrasound imaging of the veins of the bilateral lower extremities was performed. Compression and augmentation were also utilized. COMPARISON: 10/11/2018. FINDINGS: RIGHT: Common femoral vein: Patent. Greater saphenous vein (superficial): Patent. Deep femoral vein: Patent. Femoral vein: Patent. Popliteal vein: Patent. Calf veins: Limited visualization. LEFT: Common femoral vein: Patent. Greater saphenous vein (superficial): Patent. Deep femoral vein: Patent. Femoral vein: Patent. Popliteal vein: Patent. Calf veins: Limited visualization. Other: None. IMPRESSION: No evidence of deep venous thrombosis. Electronically signed by: Joey Merida M.D. 10/18/2018 3:58 PM
[2018-10-18] MEDS: WARFARIN SOD 10 MG TAB PO SCH (16:04)
[2018-10-18 16:22] LABS: Partial Thromboplastin Ratio 2.4
[2018-10-18 16:25] LABS: Partial Thromboplastin Time 62.1 Seconds (21.0-31.0)
--- NOTE | 2018-10-18 16:29 | Hospitalist Progress Note ---
Date of Service October 18, 2018 Assessment & Plan (1) Hypoxia: Presented with hypoxia, probably due to combination of CHF and COPD at time of admission. May also have sleep apnea and / or obesity hypoventilation syndrome. Now with pulmonary embolism. Specific problems as noted below. Nocturnal oximetry night of 10/13 demonstrated O2 sats as low as 75%; will need nocturnal O2 at home. Check 2-step exercise oximetry prior to discharge. Outpatient sleep study recommended. Subsequently diagnosed with acute pulmonary emboli, but O2 sats stable / improved. (2) Diastolic CHF, acute: Probable acute on chronic left ventricular diastolic heart failure +/- right- sided heart failure. Brisk diuresis on IV diuretics, but weights remain about the same. Patient advised to reduce fluid intake; try fluid restriction of 3000 mls / day. Continue IV diuretics. (3) COPD exacerbation: Exacerbation of COPD. Respiratory status improved. Received levofloxacin x 5 days- will DC. Taper prednisone to 50 mg daily. Continue bronchodilators. (4) Pulmonary embolism: Venous duplex of lower extremities negative on 10/11/18. Received SQ heparin for VTE prophylaxis Patient complained of anxiety and chest tightness. No pleuritic chest pain or hemoptysis. O2 sats improved since admission. CTA today demonstrated bilateral segmental and subsegmental PE's; no apparent RV strain per CT criteria. Prior history of PE. At chronic risk due to morbid obesity and relative inactivity. Will probably need long-term anticoagulation. Not candidate for enoxaparin or DOAC's because of BMI. Started IV heparin; transition to warfarin. Venous duplex of lower extremities negative for DVT. Skin lesions as noted above; warfarin necrosis unlikely, but will need to monitor closely. (5) Chronic pain disorder: Chronic pain syndrome. Experiencing sciatica and right foot pain secondary to fracture. Receiving Suboxone, tramadol, gabapentin, oxycodone. Concerns about tramadol - SSRI interaction discussed with patient. Patient takes gabapentin which may be contributing to edema, but best to continue it to minimize use of narcotics. Toradol had been ordered PRN, but stopped in light of PE and full anticoagulation. Patient requesting additional analgesics on a daily basis, but it does not seem to be necessary or appropriate at this time. (6) HTN (hypertension): Continue clonidine. (7) Hyperglycemia: Hyperglycemia secondary to steroids. Hemoglobin A1C was 7.0. FBS today = 120. Lantus / NovoLog per protocol. Tapering steroids. (8) Depression with anxiety: Continue duloxetine and hydroxyzine. (9) Obstipation: Bowel regimen as ordered. (10) Morbid obesity: Wt 200 kg. BMI 60. AHA diet. (11) Tobacco abuse disorder: Smoking cessation counseling. (12) DVT prophylaxis: Received SQ heparin. Full anticoagulation with IV heparin --> warfarin initiated. Ambulate. (13) Discharge planning issues: Anticipated discharge to home. Family Medicine follow-up with Dr. Hogan. Subjective Recheck for multiple problems. Patient was seen in his room around 1605. Doesn't feel well. Tired. No fever. Occasional cough. No pleuritic chest pain. No anginal symptoms. No nausea or vomiting. No diarrhea. Still has Lloyd cath; still reluctant to have it removed. Chronic pain + acute pain due to sciatica and foot fracture. Requesting additional analgesics again today. Physical Exam 2 Vital Signs (Past 24 Hours): Last Vital Signs Temp 36.7 C 10/18/18 14:53 Pulse 100 H 10/18/18 14:53 Resp 18 10/18/18 14:53 BP 119/63 10/18/18 14:53 Pulse Ox 94 10/18/18 14:53 Constitutional: no acute distress Respiratory: no respiratory distress Auscultation: + wheezes (diffuse,mild ) Cardiovascular: Rate/Rhythm: regular rate and regular rhythm Heart Sounds: no gallop, no murmur and no cardiac rub Vessels: + JVD Extremities: + edema (2+ pretibial); no calf tenderness Gastrointestinal (Abdomen): normal bowel sounds, soft, nontender, no hepatosplenomegaly Skin: no rashes, warm and dry few small hemorrhagic bullae bilateral anterior thighs lesions on right appear to be linear Psychiatric: Orientation: alert and oriented x 3
[2018-10-18] MEDS: NICOTINE 21 MG/24 HR TDSY TD SCH (19:29)
[2018-10-18] MEDS ORDERED: LORazepam 1 MG TAB PO ONE (23:27)
[2018-10-19] MEDS: OXYCODONE HCL IR 5 MG TAB (IMMEDIATE RELEASE) PO PRN ×4 (00:04→18:09)
[2018-10-19] MEDS: TRAMADOL HCL 50 MG TABLET PO SCH ×4 (00:04→18:09)
[2018-10-19] MEDS: ALBUT/IPRATROP 3MG/0.5MG NEB 3 ML VIAL NEB SCH ×4 (02:53→15:29)
[2018-10-19] MEDS: HEPARIN STANDARD DEXTROSE 25,000 UNITS/500 ML IV SCH ×2 (05:39→21:23)
[2018-10-19 08:26] LABS: Hematocrit (blood only) 39.3 % (42-52); Hemoglobin 12.7 g/dL (14.0-18.0); Mean Corpuscular Hgb Conc 32.3 g/dL (32-36); Mean Corpuscular Volume 86.9 fL (80-100); Mean Platelet Volume 10.4 fL (7.4-10.4); Platelet Count 155 K/uL (130-400); RDW Coefficient of Variation 17.4 % (11.5-14.5); RDW Standard Deviation 54.6 fL (36.4-46.3); Red Blood Count 4.52 M/uL (4.7-6.1); White Blood Count 16.66 K/uL (4.8-10.8)
[2018-10-19 08:47] LABS: INR 1.9 (0.9-1.1); Partial Thromboplastin Ratio 2.7; Partial Thromboplastin Time 69.6 Seconds (21.0-31.0); Prothrombin Time 18.6 Seconds (9.0-12.0)
[2018-10-19] MEDS: DULOXETINE HCL 60 MG CAP PO SCH (08:50)
[2018-10-19] MEDS: FUROSEMIDE 40 MG in SYRINGE 0 ML IV SCH ×2 (08:50→15:19)
[2018-10-19] MEDS: BUPRENORPHINE/NALOXONE 8/2 MG TAB SL SCH ×2 (08:50→12:02)
[2018-10-19] MEDS: GABAPENTIN 600 MG TAB PO SCH ×3 (08:50→21:26)
[2018-10-19] MEDS: cloNIDine HCl 0.1 MG TAB PO SCH ×2 (08:50→21:38)
[2018-10-19] MEDS: CYCLOBENZAPRINE HCL 10 MG TAB PO SCH ×3 (08:50→21:25)
[2018-10-19] MEDS: GABAPENTIN 400 MG CAP PO SCH ×3 (08:50→21:27)
[2018-10-19] MEDS: PANTOprazole 40 MG TAB PO SCH (08:50)
[2018-10-19] MEDS: INSULIN ASPART 100 UNITS/ML 3 ML PEN SC SCH ×4 (08:51→21:30)
[2018-10-19] MEDS: SPIRONOLACTONE 25 MG TAB PO SCH (08:52)
[2018-10-19] MEDS: ASPIRIN 81 MG ECTAB PO SCH (08:52)
[2018-10-19] MEDS: predniSONE 50 MG TAB PO SCH (08:52)
[2018-10-19] MEDS: TAMSULOSIN HCL 0.4 MG CAP PO SCH (08:52)
[2018-10-19] MEDS: SODIUM CHLORIDE 0.65% NA SOLN 45 ML (OCEAN) SCH ×3 (08:52→21:27)
[2018-10-19] MEDS: FLUTICASONE PROPIONATE NA SPR 16 GM BTL NAE SCH (08:53)
[2018-10-19] MEDS: POTASSIUM CHLORIDE 20 MEQ TABCR PO SCH ×2 (08:53→21:26)
[2018-10-19] MEDS: POLYETHYLENE (MIRALAX) 17 GM PACK PO SCH (08:53)
[2018-10-19] MEDS: INSULIN GLARGINE SOLOSTAR 100 UNITS/ML 3 ML PEN SC SCH ×2 (08:55→21:29)
[2018-10-19] MEDS: DOCUSATE SODIUM 100 MG CAP PO SCH ×2 (08:57→21:38)
[2018-10-19 08:59] LABS: BUN Creatinine Ratio 23.2 (10-20); Calcium 9.7 mg/dl (8.5-10.1); Creatinine Clr Calc Pharmacy 106.5 ml/min; Est GFR (African American) 61.4; Potassium 3.9 mmol/L (3.5-5.1)
[2018-10-19] MEDS: ONDANSETRON INJ 2 MG/ML 2 ML VIAL IV PRN (15:22)
[2018-10-19] MEDS: NICOTINE 21 MG/24 HR TDSY TD SCH (18:13)
--- NOTE | 2018-10-19 20:19 | Hospitalist Progress Note ---
Date of Service October 19, 2018 Assessment & Plan (1) Hypoxia: Presented with hypoxia, probably due to combination of CHF and COPD at time of admission. May also have sleep apnea and / or obesity hypoventilation syndrome. Now with pulmonary embolism. Specific problems as noted below. Nocturnal oximetry night of 10/13 demonstrated O2 sats as low as 75%; will need nocturnal O2 at home. Check 2-step exercise oximetry prior to discharge. Outpatient sleep study recommended. Subsequently diagnosed with acute pulmonary emboli, but O2 sats stable / improved. (2) Diastolic CHF, acute: Probable acute on chronic left ventricular diastolic heart failure +/- right- sided heart failure. Brisk diuresis on IV diuretics, but weights remain about the same. Patient advised to reduce fluid intake; try fluid restriction of 3000 mls / day. Continue IV diuretics. (3) COPD exacerbation: Exacerbation of COPD. Respiratory status improved. Received levofloxacin x 5 days- will DC. Taper prednisone to 40 mg daily. Continue bronchodilators. (4) Pulmonary embolism: Venous duplex of lower extremities negative on 10/11/18. Received SQ heparin for VTE prophylaxis Patient complained of anxiety and chest tightness. No pleuritic chest pain or hemoptysis. O2 sats improved since admission. CTA today demonstrated bilateral segmental and subsegmental PE's; no apparent RV strain per CT criteria. Prior history of PE. At chronic risk due to morbid obesity and relative inactivity. Will probably need long-term anticoagulation. Not candidate for enoxaparin or DOAC's because of BMI. Started IV heparin; transition to warfarin. Venous duplex of lower extremities negative for DVT. Skin lesions as noted above; warfarin necrosis unlikely. (5) Chronic pain disorder: Chronic pain syndrome. Experiencing sciatica and right foot pain secondary to fracture. Receiving Suboxone, tramadol, gabapentin, oxycodone. Concerns about tramadol - SSRI interaction discussed with patient. Patient takes gabapentin which may be contributing to edema, but best to continue it to minimize use of narcotics. Toradol had been ordered PRN, but stopped in light of PE and full anticoagulation. Patient requesting additional analgesics on a daily basis. Will hold Suboxone and order additional analgesics in the hope that it will assist in increasing activity and mobilizing pt. He understands that analgesic changes will be temporary. (6) HTN (hypertension): Continue clonidine. (7) Hyperglycemia: Hyperglycemia secondary to steroids. Hemoglobin A1C was 7.0. FBS today = 178. Lantus / NovoLog per protocol. Tapering steroids. (8) Depression with anxiety: Continue duloxetine and hydroxyzine. (9) Obstipation: Bowel regimen as ordered. (10) Morbid obesity: Wt 200 kg. BMI 60. AHA diet. (11) Tobacco abuse disorder: Smoking cessation counseling. (12) DVT prophylaxis: Received SQ heparin. Full anticoagulation with IV heparin --> warfarin initiated. Ambulate. (13) Discharge planning issues: May need rehab. Family Medicine follow-up with Dr. Hogan. Subjective Recheck for multiple problems. Patient was seen in his room around 1100. No fever. Occasional cough. Ongoing SOB. No pleuritic chest pain. No anginal symptoms. No nausea or vomiting. No diarrhea. Still has Lloyd cath. Chronic pain + acute pain due to sciatica and foot fracture. Requesting additional analgesics. Physical Exam 2 Vital Signs (Past 24 Hours): Last Vital Signs Temp 36.9 C 10/19/18 18:51 Pulse 109 H 10/19/18 18:51 Resp 20 10/19/18 18:51 BP 135/80 10/19/18 18:51 Pulse Ox 93 10/19/18 18:51 Constitutional: no acute distress Respiratory: no respiratory distress Auscultation: + wheezes (diffuse,mild ) Cardiovascular: Rate/Rhythm: regular rate and regular rhythm Heart Sounds: no gallop, no murmur and no cardiac rub Vessels: + JVD Extremities: + edema (2+ pretibial); no calf tenderness Gastrointestinal (Abdomen): normal bowel sounds, soft, nontender, no hepatosplenomegaly Skin: + lesion (small hemorrhagic bullae bilateral thighs unchanged) Psychiatric: Orientation: alert and oriented x 3 Results & Data Laboratory Results Laboratory Results - last 24 hr 10/19/18 10/19/18 10/19/18 07:12 08:13 08:13 WBC RBC Hgb Hct MCV MCH MCHC RDW Std Deviation RDW Coeff of Megan Plt Count MPV PT 18.6 H INR 1.9 H APTT 69.6 H* PTT Ratio 2.7 Sodium 133 L Potassium 3.9 Chloride 95 L Carbon Dioxide 29 Anion Gap 9.0 BUN 36 H Creatinine 1.53 H Est Cr Clr Drug Dosing 106.5 Est GFR ( Amer) 61.4 Est GFR (Non-Af Amer) 53.0 BUN/Creatinine Ratio 23.2 H Glucose 186 H POC Glucose 178 H Calcium 9.7 Specimen Hemolysis 10/19/18 10/19/18 10/19/18 08:13 11:29 16:13 WBC 16.66 H RBC 4.52 L Hgb 12.7 L Hct 39.3 L MCV 86.9 MCH 28.1 MCHC 32.3 RDW Std Deviation 54.6 H RDW Coeff of Megan 17.4 H Plt Count 155 MPV 10.4 PT INR APTT PTT Ratio Sodium Potassium Chloride Carbon Dioxide Anion Gap BUN Creatinine Est Cr Clr Drug Dosing Est GFR ( Amer) Est GFR (Non-Af Amer) BUN/Creatinine Ratio Glucose POC Glucose 290 H 219 H Calcium Specimen Hemolysis 10/19/18 20:45 WBC RBC Hgb Hct MCV MCH MCHC RDW Std Deviation RDW Coeff of Megan Plt Count MPV PT INR APTT PTT Ratio Sodium Potassium Chloride Carbon Dioxide Anion Gap BUN Creatinine Est Cr Clr Drug Dosing Est GFR ( Amer) Est GFR (Non-Af Amer) BUN/Creatinine Ratio Glucose POC Glucose 94 Calcium Specimen Hemolysis
[2018-10-19] MEDS: OXYCODONE HCL 40 MG TABCR (OXYCONTIN) PO SCH (21:27)
[2018-10-20] MEDS: TRAMADOL HCL 50 MG TABLET PO SCH ×5 (00:13→23:48)
[2018-10-20] MEDS: OXYCODONE HCL IR 5 MG TAB (IMMEDIATE RELEASE) PO PRN ×4 (00:13→18:44)
[2018-10-20 07:27] LABS: INR 2.2 (0.9-1.1); Partial Thromboplastin Ratio 2.3; Prothrombin Time 20.9 Seconds (9.0-12.0)
[2018-10-20 07:33] LABS: Partial Thromboplastin Time 59.2 Seconds (21.0-31.0)
[2018-10-20 07:40] LABS: BUN Creatinine Ratio 27.4 (10-20); Calcium 9.8 mg/dl (8.5-10.1); Creatinine Clr Calc Pharmacy 128.6 ml/min; Est GFR (African American) 77.7; Potassium 4.1 mmol/L (3.5-5.1)
[2018-10-20] MEDS: INSULIN ASPART 100 UNITS/ML 3 ML PEN SC SCH ×4 (08:59→21:42)
[2018-10-20] MEDS: INSULIN GLARGINE SOLOSTAR 100 UNITS/ML 3 ML PEN SC SCH ×2 (09:03→21:42)
[2018-10-20] MEDS: OXYCODONE HCL 40 MG TABCR (OXYCONTIN) PO SCH ×2 (09:03→21:40)
[2018-10-20] MEDS: DULOXETINE HCL 60 MG CAP PO SCH (09:05)
[2018-10-20] MEDS: CYCLOBENZAPRINE HCL 10 MG TAB PO SCH ×3 (09:05→21:29)
[2018-10-20] MEDS: POTASSIUM CHLORIDE 20 MEQ TABCR PO SCH ×2 (09:05→21:30)
[2018-10-20] MEDS: predniSONE 20 MG TAB PO SCH (09:05)
[2018-10-20] MEDS: ASPIRIN 81 MG ECTAB PO SCH (09:06)
[2018-10-20] MEDS: TAMSULOSIN HCL 0.4 MG CAP PO SCH (09:06)
[2018-10-20] MEDS: SPIRONOLACTONE 25 MG TAB PO SCH (09:06)
[2018-10-20] MEDS: GABAPENTIN 600 MG TAB PO SCH ×3 (09:07→21:30)
[2018-10-20] MEDS: FLUTICASONE PROPIONATE NA SPR 16 GM BTL NAE SCH (09:07)
[2018-10-20] MEDS: PANTOprazole 40 MG TAB PO SCH (09:07)
[2018-10-20] MEDS: FUROSEMIDE 40 MG in SYRINGE 0 ML IV SCH ×2 (09:07→15:23)
[2018-10-20] MEDS: GABAPENTIN 400 MG CAP PO SCH ×3 (09:07→21:31)
[2018-10-20] MEDS: cloNIDine HCl 0.1 MG TAB PO SCH ×2 (09:09→21:40)
[2018-10-20] MEDS: DOCUSATE SODIUM 100 MG CAP PO SCH ×2 (09:09→21:40)
[2018-10-20] MEDS: POLYETHYLENE (MIRALAX) 17 GM PACK PO SCH (09:09)
[2018-10-20] MEDS: SODIUM CHLORIDE 0.65% NA SOLN 45 ML (OCEAN) SCH ×3 (09:10→21:32)
[2018-10-20] MEDS: ONDANSETRON INJ 2 MG/ML 2 ML VIAL IV PRN ×2 (09:17→15:23)
--- NOTE | 2018-10-20 11:11 | Hospitalist Progress Note ---
Date of Service October 20, 2018 Assessment & Plan (1) Hypoxia: Presented with hypoxia, probably due to combination of CHF and COPD at time of admission. May also have sleep apnea and / or obesity hypoventilation syndrome. Now with pulmonary embolism. Specific problems as noted below. Nocturnal oximetry night of 10/13 demonstrated O2 sats as low as 75%; will need nocturnal O2 at home. Check 2-step exercise oximetry prior to discharge. Outpatient sleep study recommended. Subsequently diagnosed with acute pulmonary emboli, but O2 sats stable / improved. (2) Diastolic CHF, acute: Probable acute on chronic left ventricular diastolic heart failure +/- right- sided heart failure. Brisk diuresis on IV diuretics, but weights remain about the same (200.7 kg today). Patient advised to reduce fluid intake; trying fluid restriction of 3000 mls / day. Continue IV diuretics. (3) COPD exacerbation: Exacerbation of COPD. Respiratory status improved. Received levofloxacin x 5 days- will DC. Tapered prednisone to 40 mg daily. Continue bronchodilators. (4) Pulmonary embolism: Venous duplex of lower extremities negative on 10/11/18. Received SQ heparin for VTE prophylaxis Patient complained of anxiety and chest tightness. No pleuritic chest pain or hemoptysis. O2 sats improved since admission. CTA today demonstrated bilateral segmental and subsegmental PE's; no apparent RV strain per CT criteria. Prior history of PE. At chronic risk due to morbid obesity and relative inactivity. Niece reportedly has history of Factor V Leiden mutation. Pt was tested in the past and was negative. Will probably need long-term anticoagulation. Not candidate for enoxaparin or DOAC's because of BMI. Started IV heparin; transition to warfarin. Venous duplex of lower extremities negative for DVT. Skin lesions as noted, no new lesions; warfarin necrosis unlikely. Today is day # 4 IV heparin. Will continue for 7 days. INR today = 2.2. Titrate warfarin. (5) Chronic pain disorder: Chronic pain syndrome. Experiencing sciatica and right foot pain secondary to fracture. Receiving Suboxone, tramadol, gabapentin, oxycodone. Concerns about tramadol - SSRI interaction discussed with patient. Patient takes gabapentin which may be contributing to edema, but best to continue it to minimize use of narcotics. Toradol had been ordered PRN, but stopped in light of PE and full anticoagulation. Patient requesting additional analgesics on almost a daily basis. Holding Suboxone; ordered additional analgesics in the hope that it will assist in increasing activity and mobilizing pt. He understands that analgesic changes will be temporary. (6) HTN (hypertension): Continue clonidine. (7) Hyperglycemia: Hyperglycemia secondary to steroids. Hemoglobin A1C was 7.0. FBS today = 151. Lantus / NovoLog per protocol. Tapering steroids. (8) Depression with anxiety: Continue duloxetine and hydroxyzine. (9) Obstipation: Bowel regimen as ordered. (10) Morbid obesity: Wt 200 kg. BMI 60. AHA diet. (11) Tobacco abuse disorder: Smoking cessation counseling. (12) DVT prophylaxis: Received SQ heparin. Full anticoagulation with IV heparin --> warfarin initiated. Ambulate. (13) Discharge planning issues: May need rehab. Family Medicine follow-up with Dr. Hogan. Subjective Recheck for multiple problems. Patient was seen in his room around 1055. Fatigued. No fever. Congested cough. Ongoing SOB. No pleuritic chest pain. No anginal symptoms. No nausea or vomiting. No diarrhea. Still has Lloyd cath, but willing to have it removed today. Chronic pain + acute pain due to sciatica and foot fracture. Pain improved. Physical Exam 2 Vital Signs (Past 24 Hours): Last Vital Signs Temp 36.5 C 10/20/18 07:33 Pulse 92 H 10/20/18 07:33 Resp 18 10/20/18 07:33 BP 157/91 H 10/20/18 07:33 Pulse Ox 95 10/20/18 07:33 Constitutional: no acute distress Respiratory: no respiratory distress Auscultation: + rhonchi and + wheezes (diffuse,mild) Cardiovascular: Rate/Rhythm: regular rate and regular rhythm Heart Sounds: no gallop, no murmur and no cardiac rub Vessels: + JVD Extremities: + edema (2+ pretibial); no calf tenderness Gastrointestinal (Abdomen): normal bowel sounds, soft, nontender, no hepatosplenomegaly Skin: no rashes, warm and dry + lesion (no new hemorrhagic bullae bilateral thighs) Psychiatric: Orientation: alert and oriented x 3 Results & Data Laboratory Results Laboratory Results - last 24 hr 10/19/18 10/20/18 10/20/18 20:45 06:47 06:47 PT 20.9 H INR 2.2 H APTT 59.2 H* PTT Ratio 2.3 Sodium 134 L Potassium 4.1 Chloride 96 L Carbon Dioxide 32 Anion Gap 6.0 BUN 35 H Creatinine 1.26 Est Cr Clr Drug Dosing 128.6 Est GFR ( Amer) 77.7 Est GFR (Non-Af Amer) 67.0 BUN/Creatinine Ratio 27.4 H Glucose 128 H POC Glucose 94 Calcium 9.8 10/20/18 10/20/18 10/20/18 07:39 11:36 16:17 PT INR APTT PTT Ratio Sodium Potassium Chloride Carbon Dioxide Anion Gap BUN Creatinine Est Cr Clr Drug Dosing Est GFR ( Amer) Est GFR (Non-Af Amer) BUN/Creatinine Ratio Glucose POC Glucose 151 H 141 H 109 H Calcium
--- NOTE | 2018-10-20 12:40 | XRay Report ---
XR chest 2V routine HISTORY: 48 years-old Male SOB acute shortness of breath COMPARISON: CTA of the chest 10/16/2018, chest radiograph 10/14/2018 TECHNIQUE: 2 views of the chest FINDINGS: Cardiomediastinal and hilar silhouettes appear unchanged. No pneumothorax, or overt pulmonary edema. Linear subsegmental bibasilar opacities redemonstrated suggestive of atelectasis. Mild blunting of th e costophrenic angles suggests trace bilateral pleural effusions. Bones of the chest appear grossly i ntact. IMPRESSION: 1. Mild subsegmental bibasilar atelectasis. 2. Mild blunting of the costophrenic angles may be secondary to atelectasis or trace effusions. The above report was generated using voice recognition software. It may contain grammatical, syntax o r spelling errors. Electronically signed by: Kem Apodaca M.D. 10/20/2018 12:39 PM
[2018-10-20] MEDS: HEPARIN STANDARD DEXTROSE 25,000 UNITS/500 ML IV SCH (13:24)
[2018-10-20] MEDS: NICOTINE 21 MG/24 HR TDSY TD SCH (17:06)
[2018-10-20] MEDS ORDERED: WARFARIN SOD 5 MG TAB PO ONE (20:15)
[2018-10-20] MEDS: BUDESONIDE/FORMOTEROL FUMARATE 160/4.5 60 PUFFS/INHALER INH SCH (21:32)
[2018-10-21] MEDS: OXYCODONE HCL IR 5 MG TAB (IMMEDIATE RELEASE) PO PRN ×4 (00:48→19:39)
[2018-10-21] MEDS: HEPARIN STANDARD DEXTROSE 25,000 UNITS/500 ML IV SCH ×3 (02:57→20:24)
[2018-10-21] MEDS: TRAMADOL HCL 50 MG TABLET PO SCH ×3 (06:00→18:11)
[2018-10-21 07:52] LABS: Hematocrit (blood only) 38.6 % (42-52); Hemoglobin 12.5 g/dL (14.0-18.0); Mean Corpuscular Hgb Conc 32.4 g/dL (32-36); Mean Corpuscular Volume 86.7 fL (80-100); Mean Platelet Volume 9.7 fL (7.4-10.4); Nucleated RBC # (auto) 0.03 K/uL (0-0); Nucleated RBC % (auto) 0.2 %; Platelet Count 152 K/uL (130-400); RDW Coefficient of Variation 17.4 % (11.5-14.5); RDW Standard Deviation 54.6 fL (36.4-46.3); Red Blood Count 4.45 M/uL (4.7-6.1); White Blood Count 17.87 K/uL (4.8-10.8)
[2018-10-21] MEDS: DULOXETINE HCL 60 MG CAP PO SCH (08:04)
[2018-10-21] MEDS: CYCLOBENZAPRINE HCL 10 MG TAB PO SCH ×3 (08:04→21:04)
[2018-10-21] MEDS: SPIRONOLACTONE 25 MG TAB PO SCH (08:04)
[2018-10-21] MEDS: FUROSEMIDE 40 MG in SYRINGE 0 ML IV SCH ×2 (08:04→16:00)
[2018-10-21] MEDS: GABAPENTIN 400 MG CAP PO SCH ×3 (08:04→21:05)
[2018-10-21] MEDS: predniSONE 20 MG TAB PO SCH (08:05)
[2018-10-21] MEDS: PANTOprazole 40 MG TAB PO SCH (08:05)
[2018-10-21] MEDS: ASPIRIN 81 MG ECTAB PO SCH (08:05)
[2018-10-21] MEDS: BUDESONIDE/FORMOTEROL FUMARATE 160/4.5 60 PUFFS/INHALER INH SCH ×2 (08:05→21:06)
[2018-10-21] MEDS: TAMSULOSIN HCL 0.4 MG CAP PO SCH (08:05)
[2018-10-21] MEDS: TIOTROPIUM BROMIDE 5 PUFF/90 MCG INH INH SCH (08:06)
[2018-10-21] MEDS: GABAPENTIN 600 MG TAB PO SCH ×3 (08:08→21:05)
[2018-10-21] MEDS: SODIUM CHLORIDE 0.65% NA SOLN 45 ML (OCEAN) SCH ×3 (08:08→21:04)
[2018-10-21] MEDS: FLUTICASONE PROPIONATE NA SPR 16 GM BTL NAE SCH (08:09)
[2018-10-21] MEDS: POTASSIUM CHLORIDE 20 MEQ TABCR PO SCH ×2 (08:09→21:03)
[2018-10-21] MEDS: cloNIDine HCl 0.1 MG TAB PO SCH ×2 (08:13→21:06)
[2018-10-21] MEDS: OXYCODONE HCL 40 MG TABCR (OXYCONTIN) PO SCH ×2 (08:13→21:04)
[2018-10-21] MEDS: POLYETHYLENE (MIRALAX) 17 GM PACK PO SCH (08:14)
[2018-10-21 08:15] LABS: INR 1.6 (0.9-1.1); Partial Thromboplastin Ratio 2.9
[2018-10-21 08:16] LABS: Partial Thromboplastin Time 76.5 Seconds (21.0-31.0)
[2018-10-21] MEDS: INSULIN GLARGINE SOLOSTAR 100 UNITS/ML 3 ML PEN SC SCH ×2 (08:19→21:07)
[2018-10-21] MEDS: INSULIN ASPART 100 UNITS/ML 3 ML PEN SC SCH ×4 (08:20→21:07)
[2018-10-21 08:22] LABS: BUN Creatinine Ratio 22.8 (10-20); Calcium 9.6 mg/dl (8.5-10.1); Creatinine Clr Calc Pharmacy 108.7 ml/min; Est GFR (African American) 63.4; Est GFR (Non-African American) 54.7; Potassium 4.2 mmol/L (3.5-5.1)
[2018-10-21] MEDS: DOCUSATE SODIUM 100 MG CAP PO SCH ×2 (08:24→21:06)
[2018-10-21] MEDS: ONDANSETRON INJ 2 MG/ML 2 ML VIAL IV PRN ×2 (13:28→21:09)
[2018-10-21 15:25] LABS: Partial Thromboplastin Ratio 2.1
[2018-10-21 15:26] LABS: Partial Thromboplastin Time 55.2 Seconds (21.0-31.0)
[2018-10-21] MEDS: NICOTINE 21 MG/24 HR TDSY TD SCH (16:01)
[2018-10-21] MEDS ORDERED: WARFARIN SOD 5 MG TAB PO ONE (20:07)
--- NOTE | 2018-10-21 20:24 | Hospitalist Progress Note ---
Date of Service October 21, 2018 Assessment & Plan (1) Hypoxia: Presented with hypoxia, probably due to combination of CHF and COPD at time of admission. May also have sleep apnea and / or obesity hypoventilation syndrome. Now with pulmonary embolism. Specific problems as noted below. Nocturnal oximetry night of 10/13 demonstrated O2 sats as low as 75%; will need nocturnal O2 at home. Check 2-step exercise oximetry prior to discharge. Outpatient sleep study recommended. Subsequently diagnosed with acute pulmonary emboli, but O2 sats stable / improved. (2) Diastolic CHF, acute: Probable acute on chronic left ventricular diastolic heart failure +/- right- sided heart failure. Brisk diuresis on IV diuretics, but weights remain about the same (200.7 kg today). Patient advised to reduce fluid intake; trying fluid restriction of 3000 mls / day. Has been receiving IV diuretics with good urine output. Weights remaining stable. Persistent edema. Chest x-ray 10/20 showed improved pulmonary edema. Importance of restricting sodium and fluid intake discussed. (3) COPD exacerbation: Exacerbation of COPD. Respiratory status improved. Received levofloxacin x 5 days- will DC. Tapered prednisone to 40 mg daily. Continue bronchodilators. (4) Pulmonary embolism: Venous duplex of lower extremities negative on 10/11/18. Received SQ heparin for VTE prophylaxis Patient complained of anxiety and chest tightness. No pleuritic chest pain or hemoptysis. O2 sats improved since admission. CTA today demonstrated bilateral segmental and subsegmental PE's; no apparent RV strain per CT criteria. Prior history of PE. At chronic risk due to morbid obesity and relative inactivity. Niece reportedly has history of Factor V Leiden mutation. Pt was tested in the past and was negative. Will probably need long-term anticoagulation. Not candidate for enoxaparin or DOAC's because of BMI. Started IV heparin; transition to warfarin. Venous duplex of lower extremities negative for DVT. Skin lesions as noted, no new lesions; warfarin necrosis unlikely. Today is day # 4 IV heparin. Will continue for at least 7 days. INR today = 1.6. Titrate warfarin. (5) Chronic pain disorder: Chronic pain syndrome. Experiencing sciatica and right foot pain secondary to fracture. Receiving Suboxone, tramadol, gabapentin, oxycodone. Concerns about tramadol - SSRI interaction discussed with patient. Patient takes gabapentin which may be contributing to edema, but best to continue it to minimize use of narcotics. Toradol had been ordered PRN, but stopped in light of PE and full anticoagulation. Patient requesting additional analgesics on almost a daily basis. Holding Suboxone; ordered additional analgesics in the hope that it will assist in increasing activity and mobilizing pt. He understands that analgesic changes will be temporary. (6) HTN (hypertension): Continue clonidine. (7) Hyperglycemia: Hyperglycemia secondary to steroids. Hemoglobin A1C was 7.0. FBS today = 145. Lantus / NovoLog per protocol. Tapering steroids. (8) Depression with anxiety: Continue duloxetine and hydroxyzine. (9) Obstipation: Bowel regimen as ordered. (10) Morbid obesity: Wt 200 kg. BMI 60. AHA diet. (11) Tobacco abuse disorder: Smoking cessation counseling. (12) DVT prophylaxis: Received SQ heparin. Full anticoagulation with IV heparin --> warfarin initiated. Ambulate. (13) Discharge planning issues: May need rehab. Family Medicine follow-up with Dr. Hogan. Subjective Recheck for multiple problems. Patient was seen in his room around 1999. His was visiting. Ongoing fatigue and SOB. No fever. Occasional cough. No pleuritic chest pain. No anginal symptoms. No nausea or vomiting. No diarrhea. Lloyd cath removed yesterday. Physical Exam 2 Vital Signs (Past 24 Hours): Last Vital Signs Temp 36.7 C 10/21/18 19:12 Pulse 107 H 10/21/18 19:12 Resp 20 10/21/18 19:12 BP 157/96 H 10/21/18 19:12 Pulse Ox 95 10/21/18 19:12 Constitutional: no acute distress Respiratory: no respiratory distress Auscultation: + rhonchi and + wheezes (diffuse,mild) Cardiovascular: Rate/Rhythm: regular rate, regular rhythm and + tachycardic Heart Sounds: no gallop, no murmur and no cardiac rub Vessels: + JVD Extremities: + edema (2+ pretibial); no calf tenderness Gastrointestinal (Abdomen): normal bowel sounds, soft, nontender, no hepatosplenomegaly Skin: no rashes, warm and dry + lesion (no new hemorrhagic bullae bilateral thighs) edema of abdominal wall / flanks Psychiatric: Orientation: alert and oriented x 3 Results & Data Laboratory Results Laboratory Results - last 24 hr 10/21/18 10/21/18 10/21/18 07:37 07:37 07:37 WBC 17.87 H RBC 4.45 L Hgb 12.5 L Hct 38.6 L MCV 86.7 MCH 28.1 MCHC 32.4 RDW Std Deviation 54.6 H RDW Coeff of Megan 17.4 H Plt Count 152 MPV 9.7 Absolute Nucleated RBC 0.03 H Nucleated RBC % (auto) 0.2 PT 16.0 H INR 1.6 H APTT 76.5 H* PTT Ratio 2.9 Sodium 131 L Potassium 4.2 Chloride 96 L Carbon Dioxide 28 Anion Gap 8.0 BUN 34 H Creatinine 1.49 H Est Cr Clr Drug Dosing 108.7 Est GFR ( Amer) 63.4 Est GFR (Non-Af Amer) 54.7 BUN/Creatinine Ratio 22.8 H Glucose 150 H POC Glucose Calcium 9.6 10/21/18 10/21/18 10/21/18 07:56 11:23 14:17 WBC RBC Hgb Hct MCV MCH MCHC RDW Std Deviation RDW Coeff of Megan Plt Count MPV Absolute Nucleated RBC Nucleated RBC % (auto) PT INR APTT 55.2 H* PTT Ratio 2.1 Sodium Potassium Chloride Carbon Dioxide Anion Gap BUN Creatinine Est Cr Clr Drug Dosing Est GFR ( Amer) Est GFR (Non-Af Amer) BUN/Creatinine Ratio Glucose POC Glucose 145 H 130 H Calcium 10/21/18 10/21/18 16:04 20:25 WBC RBC Hgb Hct MCV MCH MCHC RDW Std Deviation RDW Coeff of Megan Plt Count MPV Absolute Nucleated RBC Nucleated RBC % (auto) PT INR APTT PTT Ratio Sodium Potassium Chloride Carbon Dioxide Anion Gap BUN Creatinine Est Cr Clr Drug Dosing Est GFR ( Amer) Est GFR (Non-Af Amer) BUN/Creatinine Ratio Glucose POC Glucose 149 H 112 H Calcium
[2018-10-22] MEDS: TRAMADOL HCL 50 MG TABLET PO SCH ×4 (00:25→18:23)
[2018-10-22] MEDS: OXYCODONE HCL IR 5 MG TAB (IMMEDIATE RELEASE) PO PRN ×4 (03:06→22:12)
[2018-10-22 06:37] LABS: BUN Creatinine Ratio 27.1 (10-20); Creatinine Clr Calc Pharmacy 134.1 ml/min; Est GFR (African American) 82.4; Est GFR (Non-African American) 71.1; Potassium 4.2 mmol/L (3.5-5.1)
[2018-10-22 06:52] LABS: INR 1.7 (0.9-1.1)
[2018-10-22] MEDS ORDERED: WARFARIN SOD 10 MG TAB PO ONE (08:15)
[2018-10-22] MEDS: DOCUSATE SODIUM 100 MG CAP PO SCH ×2 (08:58→21:06)
[2018-10-22] MEDS: OXYCODONE HCL 40 MG TABCR (OXYCONTIN) PO SCH ×2 (08:58→20:56)
[2018-10-22] MEDS: FLUTICASONE PROPIONATE NA SPR 16 GM BTL NAE SCH (08:58)
[2018-10-22] MEDS: cloNIDine HCl 0.1 MG TAB PO SCH ×2 (08:58→21:06)
[2018-10-22] MEDS: POLYETHYLENE (MIRALAX) 17 GM PACK PO SCH (08:58)
[2018-10-22] MEDS: BUDESONIDE/FORMOTEROL FUMARATE 160/4.5 60 PUFFS/INHALER INH SCH ×2 (08:59→21:01)
[2018-10-22] MEDS: PANTOprazole 40 MG TAB PO SCH (09:02)
[2018-10-22] MEDS: GABAPENTIN 600 MG TAB PO SCH (09:02)
[2018-10-22] MEDS: TAMSULOSIN HCL 0.4 MG CAP PO SCH (09:02)
[2018-10-22] MEDS: predniSONE 20 MG TAB PO SCH (09:02)
[2018-10-22] MEDS: CYCLOBENZAPRINE HCL 10 MG TAB PO SCH ×3 (09:03→21:00)
[2018-10-22] MEDS: ASPIRIN 81 MG ECTAB PO SCH (09:03)
[2018-10-22] MEDS: FUROSEMIDE 40 MG in SYRINGE 0 ML IV SCH ×2 (09:03→14:29)
[2018-10-22] MEDS: SPIRONOLACTONE 25 MG TAB PO SCH (09:03)
[2018-10-22] MEDS: POTASSIUM CHLORIDE 20 MEQ TABCR PO SCH ×2 (09:04→20:59)
[2018-10-22] MEDS: GABAPENTIN 400 MG CAP PO SCH (09:04)
[2018-10-22] MEDS: DULOXETINE HCL 60 MG CAP PO SCH (09:04)
[2018-10-22] MEDS: SODIUM CHLORIDE 0.65% NA SOLN 45 ML (OCEAN) SCH ×3 (09:05→20:56)
[2018-10-22] MEDS: TIOTROPIUM BROMIDE 5 PUFF/90 MCG INH INH SCH (09:06)
[2018-10-22] MEDS: INSULIN ASPART 100 UNITS/ML 3 ML PEN SC SCH ×4 (09:07→21:01)
[2018-10-22] MEDS: INSULIN GLARGINE SOLOSTAR 100 UNITS/ML 3 ML PEN SC SCH ×2 (09:10→20:58)
--- NOTE | 2018-10-22 10:00 | Hospitalist Progress Note ---
Date of Service October 22, 2018 Assessment & Plan (1) Hypoxia: Presented with hypoxia, probably due to combination of CHF and COPD at time of admission. May also have sleep apnea and / or obesity hypoventilation syndrome. Now with pulmonary embolism. Specific problems as noted below. Nocturnal oximetry night of 10/13 demonstrated O2 sats as low as 75%; will need nocturnal O2 at home. Check 2-step exercise oximetry prior to discharge. Outpatient sleep study recommended. Subsequently diagnosed with acute pulmonary emboli, but O2 sats stable / improved. (2) Diastolic CHF, acute: Probable acute on chronic left ventricular diastolic heart failure +/- right- sided heart failure. Brisk diuresis on IV diuretics, but weights remain about the same (200.7 kg today). Patient advised to reduce fluid intake; trying fluid restriction of 3000 mls / day. Has been receiving IV diuretics with good urine output. Weights remaining stable. Persistent edema. Chest x-ray 10/20 showed improved pulmonary edema. Pt is finding fluid restriction of 3 L / day challenging. Importance of restricting sodium and fluid intake discussed. Continue IV furosemide for now. Increase spironolactone to 50 mg daily. (3) COPD exacerbation: Exacerbation of COPD. Respiratory status improved. Received levofloxacin x 5 days- will DC. Tapered prednisone to 40 mg daily; continue taper as tolerated. Continue bronchodilators. (4) Pulmonary embolism: Venous duplex of lower extremities negative on 10/11/18. Received SQ heparin for VTE prophylaxis Patient complained of anxiety and chest tightness. No pleuritic chest pain or hemoptysis. O2 sats improved since admission. CTA 10/16 demonstrated bilateral segmental and subsegmental PE's; no apparent RV strain per CT criteria. Prior history of PE. At chronic risk due to morbid obesity and relative inactivity. Niece reportedly has history of Factor V Leiden mutation. Pt was tested in the past and was negative. Will probably need long-term anticoagulation. Not candidate for enoxaparin or DOAC's because of BMI. Started IV heparin; transition to warfarin. Venous duplex of lower extremities negative for DVT. Skin lesions as noted, no new lesions; warfarin necrosis unlikely. Today is day # 5 IV heparin. Will continue for at least 7 days with at least 2 consecutive days of therapeutic INR. INR today = 1.7. Titrate warfarin. (5) Chronic pain disorder: Chronic pain syndrome. Experiencing sciatica and right foot pain secondary to fracture. Receiving Suboxone, tramadol, gabapentin, as outpatient. Concerns about tramadol - SSRI interaction discussed with patient. Patient takes gabapentin which may be contributing to edema. Toradol had been ordered PRN, but stopped in light of PE and full anticoagulation. Patient insisting on additional analgesics on almost a daily basis. Holding Suboxone; ordered additional analgesics in the hope that it will assist in increasing activity and mobilizing pt. He understands that analgesic changes will be temporary. I am concerned about polypharmacology, escalating narcotics, and potential for side effects and drug interactions. Pt unwilling to decrease oxycodone or tramadol at this time. Gabapentin may be contributing to fluid retention- try to gradually decrease dose. (6) HTN (hypertension): Continue clonidine. (7) Hyperglycemia: Hyperglycemia secondary to steroids. Hemoglobin A1C was 7.0. FBS today = 173 Lantus / NovoLog per protocol. Tapering steroids. (8) Depression with anxiety: Continue duloxetine and hydroxyzine. (9) Obstipation: Bowel regimen as ordered. (10) Morbid obesity: Wt 200 kg. BMI 60. AHA diet. (11) Tobacco abuse disorder: Smoking cessation counseling. (12) DVT prophylaxis: Received SQ heparin. Full anticoagulation with IV heparin --> warfarin initiated. Ambulate. (13) Discharge planning issues: May need rehab. Family Medicine follow-up with Dr. Hogan. Subjective Recheck for multiple problems. Patient was seen in his room around 0950. Ongoing fatigue and SOB. No fever. Occasional cough. No pleuritic chest pain. No anginal symptoms. No nausea or vomiting. No diarrhea. Voiding without difficulty. Having difficulty with 3 L fluid restriction. Ongoing concerns about pain / pain meds. Physical Exam 2 Vital Signs (Past 24 Hours): Last Vital Signs Temp 36.8 C 10/22/18 04:00 Pulse 93 H 10/22/18 04:00 Resp 16 10/22/18 04:00 BP 136/94 10/22/18 04:00 Pulse Ox 94 10/22/18 04:00 Constitutional: no acute distress Respiratory: no respiratory distress Auscultation: + rhonchi (few) and + wheezes (diffuse,mild) Cardiovascular: Rate/Rhythm: regular rate and regular rhythm Heart Sounds: no gallop, no murmur and no cardiac rub Vessels: + JVD Extremities: + edema (2+ pretibial); no calf tenderness Gastrointestinal (Abdomen): normal bowel sounds, soft, nontender, no hepatosplenomegaly Musculoskeletal: flank edema Skin: no rashes, warm and dry + lesion (healing ulcers from hemorrhagic bullae bilateral thighs) Psychiatric: Orientation: alert and oriented x 3 Results & Data Laboratory Results Laboratory Results - last 24 hr 10/21/18 10/22/18 10/22/18 20:25 05:35 05:35 PT 17.0 H INR 1.7 H APTT 53.0 H* PTT Ratio 2.0 Sodium 132 L Potassium 4.2 Chloride 96 L Carbon Dioxide 30 Anion Gap 6.0 BUN 33 H Creatinine 1.20 Est Cr Clr Drug Dosing 134.1 Est GFR ( Amer) 82.4 Est GFR (Non-Af Amer) 71.1 BUN/Creatinine Ratio 27.1 H Glucose 156 H POC Glucose 112 H Calcium 10.0 10/22/18 10/22/18 10/22/18 07:33 11:42 16:28 PT INR APTT PTT Ratio Sodium Potassium Chloride Carbon Dioxide Anion Gap BUN Creatinine Est Cr Clr Drug Dosing Est GFR ( Amer) Est GFR (Non-Af Amer) BUN/Creatinine Ratio Glucose POC Glucose 173 H 98 214 H Calcium
[2018-10-22] MEDS: ONDANSETRON INJ 2 MG/ML 2 ML VIAL IV PRN ×2 (12:22→18:23)
[2018-10-22] MEDS: GABAPENTIN 300 MG CAP PO SCH ×2 (14:28→20:57)
[2018-10-22] MEDS: HEPARIN STANDARD DEXTROSE 25,000 UNITS/500 ML IV SCH (14:30)
[2018-10-22] MEDS: ALBUT/IPRATROP 3MG/0.5MG NEB 3 ML VIAL NEB PRN (15:38)
[2018-10-22] MEDS: NICOTINE 21 MG/24 HR TDSY TD SCH (17:27)
[2018-10-23] MEDS: TRAMADOL HCL 50 MG TABLET PO SCH ×5 (00:06→23:39)
[2018-10-23] MEDS: ONDANSETRON INJ 2 MG/ML 2 ML VIAL IV PRN ×3 (02:20→18:45)
[2018-10-23] MEDS: OXYCODONE HCL IR 5 MG TAB (IMMEDIATE RELEASE) PO PRN ×3 (04:21→17:35)
[2018-10-23 07:18] LABS: Hemoglobin 13.2 g/dL (14.0-18.0); Mean Corpuscular Volume 87.5 fL (80-100); Nucleated RBC # (auto) 0.07 K/uL (0-0); Nucleated RBC % (auto) 0.4 %; Platelet Count 155 K/uL (130-400); RDW Coefficient of Variation 17.9 % (11.5-14.5); RDW Standard Deviation 56.4 fL (36.4-46.3); Red Blood Count 4.57 M/uL (4.7-6.1); White Blood Count 20.29 K/uL (4.8-10.8)
[2018-10-23 07:42] LABS: BUN Creatinine Ratio 28.5 (10-20); Creatinine Clr Calc Pharmacy 121.3 ml/min; Est GFR (African American) 74.8; Est GFR (Non-African American) 64.5; Potassium 4.1 mmol/L (3.5-5.1)
[2018-10-23 07:49] LABS: INR 2.9 (0.9-1.1); Partial Thromboplastin Ratio 2.1; Prothrombin Time 27.8 Seconds (9.0-12.0)
[2018-10-23 07:53] LABS: Partial Thromboplastin Time 54.7 Seconds (21.0-31.0)
[2018-10-23] MEDS: HEPARIN STANDARD DEXTROSE 25,000 UNITS/500 ML IV SCH (08:38)
[2018-10-23] MEDS: INSULIN ASPART 100 UNITS/ML 3 ML PEN SC SCH ×4 (08:40→21:04)
[2018-10-23] MEDS: INSULIN GLARGINE SOLOSTAR 100 UNITS/ML 3 ML PEN SC SCH ×2 (08:41→21:05)
[2018-10-23] MEDS: SPIRONOLACTONE 25 MG TAB PO SCH ×2 (08:44→14:29)
[2018-10-23] MEDS: DOCUSATE SODIUM 100 MG CAP PO SCH ×2 (08:44→21:02)
[2018-10-23] MEDS: BUDESONIDE/FORMOTEROL FUMARATE 160/4.5 60 PUFFS/INHALER INH SCH ×2 (08:44→21:05)
[2018-10-23] MEDS: cloNIDine HCl 0.1 MG TAB PO SCH ×2 (08:44→21:02)
[2018-10-23] MEDS: OXYCODONE HCL 40 MG TABCR (OXYCONTIN) PO SCH ×2 (08:44→21:03)
[2018-10-23] MEDS: PANTOprazole 40 MG TAB PO SCH (08:45)
[2018-10-23] MEDS: ASPIRIN 81 MG ECTAB PO SCH (08:45)
[2018-10-23] MEDS: DULOXETINE HCL 60 MG CAP PO SCH (08:45)
[2018-10-23] MEDS: TAMSULOSIN HCL 0.4 MG CAP PO SCH (08:45)
[2018-10-23] MEDS: GABAPENTIN 300 MG CAP PO SCH ×3 (08:45→21:04)
[2018-10-23] MEDS: predniSONE 20 MG TAB PO SCH (08:45)
[2018-10-23] MEDS: POTASSIUM CHLORIDE 20 MEQ TABCR PO SCH ×2 (08:46→21:08)
[2018-10-23] MEDS: CYCLOBENZAPRINE HCL 10 MG TAB PO SCH ×3 (08:47→21:03)
[2018-10-23] MEDS: TIOTROPIUM BROMIDE 5 PUFF/90 MCG INH INH SCH (08:47)
[2018-10-23] MEDS: SODIUM CHLORIDE 0.65% NA SOLN 45 ML (OCEAN) SCH ×3 (08:47→21:03)
[2018-10-23] MEDS: POLYETHYLENE (MIRALAX) 17 GM PACK PO SCH (08:48)
[2018-10-23] MEDS: FLUTICASONE PROPIONATE NA SPR 16 GM BTL NAE SCH (08:49)
[2018-10-23] MEDS: FUROSEMIDE 40 MG in SYRINGE 0 ML IV SCH ×2 (09:18→14:28)
--- NOTE | 2018-10-23 15:47 | Hospitalist Progress Note ---
Date of Service October 23, 2018 Assessment & Plan (1) Hypoxia: Presented with hypoxia, probably due to combination of CHF and COPD at time of admission. May also have sleep apnea and / or obesity hypoventilation syndrome. Subsequently diagnosed with acute pulmonary emboli, but O2 sats stable / improved. Specific problems as noted below. Nocturnal oximetry night of 10/13 demonstrated O2 sats as low as 75%; will need nocturnal O2 at home. Check 2-step exercise oximetry prior to discharge. Outpatient sleep study recommended. (2) Diastolic CHF, acute: Probable acute on chronic left ventricular diastolic heart failure +/- right- sided heart failure. Brisk diuresis on IV diuretics, but weights remained about the same. Patient advised to reduce fluid intake; trying fluid restriction of 3000 mls / day. Has been receiving IV diuretics with good urine output. Weights remaining stable. Persistent edema. Chest x-ray 10/20 showed improved pulmonary edema. Pt is finding fluid restriction of 3 L / day challenging. Importance of restricting sodium and fluid intake again discussed. Continue IV furosemide for now. Increased spironolactone to 25 mg BID. (3) COPD exacerbation: Exacerbation of COPD. Respiratory status improved. Received levofloxacin x 5 days- will DC. Tapered prednisone to 40 mg daily; continue taper as tolerated. Try tapering to 30 mg daily tomorrow. Continue bronchodilators. (4) Pulmonary embolism: Venous duplex of lower extremities negative on 10/11/18. Received SQ heparin for VTE prophylaxis Patient complained of anxiety and chest tightness. No pleuritic chest pain or hemoptysis. O2 sats improved since admission. CTA 10/16 demonstrated bilateral segmental and subsegmental PE's; no apparent RV strain per CT criteria. Prior history of PE. At chronic risk due to morbid obesity and relative inactivity. Niece reportedly has history of Factor V Leiden mutation. Pt was tested in the past and was negative. Will probably need long-term anticoagulation. Not candidate for enoxaparin or DOAC's because of BMI. Started IV heparin; transition to warfarin. Venous duplex of lower extremities negative for DVT. Skin lesions as noted, no new lesions; warfarin necrosis unlikely. Today is day # 5 IV heparin. Will continue for at least 7 days with at least 2 consecutive days of therapeutic INR. INR today = 2.9. Titrate warfarin. (5) Chronic pain disorder: Chronic pain syndrome. Experiencing sciatica and right foot pain secondary to fracture. Receiving Suboxone, tramadol, gabapentin, as outpatient. Concerns about tramadol - SSRI interaction discussed with patient. Patient takes gabapentin which may be contributing to edema. Toradol had been ordered PRN, but stopped in light of PE and full anticoagulation. Patient insisting on additional analgesics on almost a daily basis. Holding Suboxone; ordered additional analgesics in the hope that it will assist in increasing activity and mobilizing pt. He understands that analgesic changes will be temporary. I am concerned about polypharmacology, escalating narcotics, and potential for side effects and drug interactions. Pt unwilling to decrease oxycodone or tramadol at this time. Gabapentin may be contributing to fluid retention- try to gradually decrease dose. Dose decreased to 900 mg TID. (6) HTN (hypertension): Continue clonidine. (7) Hyperglycemia: Hyperglycemia secondary to steroids. Hemoglobin A1C was 7.0. FBS today = 113 Lantus / NovoLog per protocol. Tapering steroids. (8) Depression with anxiety: Continue duloxetine and hydroxyzine. (9) Obstipation: Bowel regimen as ordered. (10) Morbid obesity: Wt 200 kg. BMI 60. AHA diet. Pt eating double portions of meals and large amounts of snacks between meals. Importance of limiting caloric intake again emphasized. (11) Tobacco abuse disorder: Smoking cessation counseling. (12) DVT prophylaxis: Received SQ heparin. Full anticoagulation with IV heparin --> warfarin initiated. Ambulate. (13) Discharge planning issues: May need rehab. Family Medicine follow-up with Dr. Hogan. Subjective Recheck for multiple problems. Patient was seen in his room around 1520. Doesn't feel well. Ongoing fatigue. No fever. Occasional cough. SOB. No pleuritic chest pain. No anginal symptoms. Nausea without vomiting. No diarrhea. Voiding without difficulty. Having difficulty with 3 L fluid restriction. Ongoing concerns about pain / pain meds. Staff reports that patient requests double portions of meals as well as snacks between meals. He is also requesting about 8 servings of pudding / shift. Physical Exam 2 Vital Signs (Past 24 Hours): Last Vital Signs Temp 36.9 C 10/23/18 07:34 Pulse 110 H 10/23/18 07:34 Resp 20 10/23/18 07:34 BP 162/81 H 10/23/18 07:34 Pulse Ox 92 10/23/18 07:34 Constitutional: no acute distress Respiratory: no respiratory distress Auscultation: + rhonchi (few) and + wheezes (diffuse,mild) Cardiovascular: Rate/Rhythm: regular rate, regular rhythm and + tachycardic Heart Sounds: no gallop, no murmur and no cardiac rub Vessels: + JVD Extremities: + edema (2+ pretibial); no calf tenderness Gastrointestinal (Abdomen): normal bowel sounds, soft, nontender, no hepatosplenomegaly Skin: no rashes, warm and dry + lesion (healing ulcers from hemorrhagic bullae bilateral thighs) Psychiatric: Orientation: alert and oriented x 3 Results & Data Laboratory Results Laboratory Results - last 24 hr 10/23/18 10/23/18 10/23/18 06:41 06:41 06:41 WBC 20.29 H RBC 4.57 L Hgb 13.2 L Hct 40.0 L MCV 87.5 MCH 28.9 MCHC 33.0 RDW Std Deviation 56.4 H RDW Coeff of Megan 17.9 H Plt Count 155 MPV 10.0 Absolute Nucleated RBC 0.07 H Nucleated RBC % (auto) 0.4 PT 27.8 H INR 2.9 H APTT 54.7 H* PTT Ratio 2.1 Sodium 133 L Potassium 4.1 Chloride 96 L Carbon Dioxide 30 Anion Gap 7.0 BUN 37 H Creatinine 1.30 Est Cr Clr Drug Dosing 121.3 Est GFR ( Amer) 74.8 Est GFR (Non-Af Amer) 64.5 BUN/Creatinine Ratio 28.5 H Glucose 128 H POC Glucose Calcium 10.0 Procalcitonin 10/23/18 10/23/18 10/23/18 07:32 07:40 11:40 WBC RBC Hgb Hct MCV MCH MCHC RDW Std Deviation RDW Coeff of Megan Plt Count MPV Absolute Nucleated RBC Nucleated RBC % (auto) PT INR APTT PTT Ratio Sodium Potassium Chloride Carbon Dioxide Anion Gap BUN Creatinine Est Cr Clr Drug Dosing Est GFR ( Amer) Est GFR (Non-Af Amer) BUN/Creatinine Ratio Glucose POC Glucose 113 H 143 H Calcium Procalcitonin 0.12 10/23/18 10/23/18 16:15 19:57 WBC RBC Hgb Hct MCV MCH MCHC RDW Std Deviation RDW Coeff of Megan Plt Count MPV Absolute Nucleated RBC Nucleated RBC % (auto) PT INR APTT PTT Ratio Sodium Potassium Chloride Carbon Dioxide Anion Gap BUN Creatinine Est Cr Clr Drug Dosing Est GFR ( Amer) Est GFR (Non-Af Amer) BUN/Creatinine Ratio Glucose POC Glucose 200 H 145 H Calcium Procalcitonin
[2018-10-23] MEDS: NICOTINE 21 MG/24 HR TDSY TD SCH (17:39)
[2018-10-23] MEDS: ALBUT/IPRATROP 3MG/0.5MG NEB 3 ML VIAL NEB PRN (21:21)
[2018-10-24] MEDS: ONDANSETRON INJ 2 MG/ML 2 ML VIAL IV PRN ×2 (00:37→09:22)
[2018-10-24] MEDS: OXYCODONE HCL IR 5 MG TAB (IMMEDIATE RELEASE) PO PRN ×3 (00:37→16:11)
[2018-10-24] MEDS: HEPARIN STANDARD DEXTROSE 25,000 UNITS/500 ML IV SCH ×2 (03:05→10:40)
[2018-10-24] MEDS: TRAMADOL HCL 50 MG TABLET PO SCH ×4 (05:56→23:53)
[2018-10-24 07:45] LABS: INR 2.3 (0.9-1.1); Partial Thromboplastin Ratio 2.2; Prothrombin Time 22.2 Seconds (9.0-12.0)
[2018-10-24 07:46] LABS: Partial Thromboplastin Time 56.1 Seconds (21.0-31.0)
[2018-10-24 07:53] LABS: BUN Creatinine Ratio 28.8 (10-20); Creatinine Clr Calc Pharmacy 132.1 ml/min; Est GFR (African American) 81.6; Est GFR (Non-African American) 70.4; Potassium 3.9 mmol/L (3.5-5.1)
[2018-10-24] MEDS: FLUTICASONE PROPIONATE NA SPR 16 GM BTL NAE SCH (09:04)
[2018-10-24] MEDS: FUROSEMIDE 40 MG in SYRINGE 0 ML IV SCH ×2 (09:04→14:35)
[2018-10-24] MEDS: TIOTROPIUM BROMIDE 5 PUFF/90 MCG INH INH SCH (09:04)
[2018-10-24] MEDS: BUDESONIDE/FORMOTEROL FUMARATE 160/4.5 60 PUFFS/INHALER INH SCH ×2 (09:04→22:04)
[2018-10-24] MEDS: POTASSIUM CHLORIDE 20 MEQ TABCR PO SCH ×2 (09:05→22:06)
[2018-10-24] MEDS: PANTOprazole 40 MG TAB PO SCH (09:06)
[2018-10-24] MEDS: ASPIRIN 81 MG ECTAB PO SCH (09:06)
[2018-10-24] MEDS: TAMSULOSIN HCL 0.4 MG CAP PO SCH (09:06)
[2018-10-24] MEDS: SPIRONOLACTONE 25 MG TAB PO SCH ×2 (09:06→16:11)
[2018-10-24] MEDS: predniSONE 20 MG TAB PO SCH (09:06)
[2018-10-24] MEDS: GABAPENTIN 300 MG CAP PO SCH ×3 (09:06→22:06)
[2018-10-24] MEDS: INSULIN ASPART 100 UNITS/ML 3 ML PEN SC SCH ×4 (09:07→22:09)
[2018-10-24] MEDS: DOCUSATE SODIUM 100 MG CAP PO SCH ×2 (09:07→22:14)
[2018-10-24] MEDS: DULOXETINE HCL 60 MG CAP PO SCH (09:07)
[2018-10-24] MEDS: CYCLOBENZAPRINE HCL 10 MG TAB PO SCH ×3 (09:08→21:58)
[2018-10-24] MEDS: INSULIN GLARGINE SOLOSTAR 100 UNITS/ML 3 ML PEN SC SCH ×2 (09:09→22:08)
[2018-10-24] MEDS: POLYETHYLENE (MIRALAX) 17 GM PACK PO SCH (09:10)
[2018-10-24] MEDS: SODIUM CHLORIDE 0.65% NA SOLN 45 ML (OCEAN) SCH ×3 (09:10→22:04)
[2018-10-24] MEDS: cloNIDine HCl 0.1 MG TAB PO SCH ×2 (09:19→22:02)
[2018-10-24] MEDS: OXYCODONE HCL 40 MG TABCR (OXYCONTIN) PO SCH ×2 (09:19→22:02)
[2018-10-24 13:12] LABS: Influenza A virus by PCR Neg for Influ A (Neg); Influenza B virus by PCR Neg for Influ B (Neg)
[2018-10-24] MEDS: WARFARIN SOD 6 MG TAB PO SCH (16:13)
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
[2018-10-24] MEDS: NICOTINE 21 MG/24 HR TDSY TD SCH (17:36)
[2018-10-24] MEDS: SUCRALFATE 1 GM/10 ML UDC PO SCH ×2 (17:45→21:59)
--- NOTE | 2018-10-24 20:16 | Hospitalist Progress Note ---
Date of Service October 24, 2018 Assessment & Plan (1) Hypoxia: Presented with hypoxia, probably due to combination of CHF and COPD at time of admission. May also have sleep apnea and / or obesity hypoventilation syndrome. Subsequently diagnosed with acute pulmonary emboli, but O2 sats stable / improved. Specific problems as noted below. Nocturnal oximetry night of 10/13 demonstrated O2 sats as low as 75%; will need nocturnal O2 at home. Check 2-step exercise oximetry prior to discharge. Outpatient sleep study recommended. (2) Diastolic CHF, acute: Probable acute on chronic left ventricular diastolic heart failure +/- right- sided heart failure. Patient advised to reduce fluid intake; trying fluid restriction of 3000 mls / day. Has been receiving IV diuretics with good urine output. Weights trending downward slowly. Persistent edema. Chest x-ray 10/20 showed improved pulmonary edema. Pt is finding fluid restriction of 3 L / day challenging. Importance of restricting sodium and fluid intake again discussed. Continue IV furosemide for now. Increased spironolactone to 25 mg BID. (3) COPD exacerbation: Exacerbation of COPD. Respiratory status improved. Received levofloxacin x 5 days- will DC. Tapered prednisone to 30 mg daily; continue taper as tolerated. Continue bronchodilators. (4) Pulmonary embolism: Venous duplex of lower extremities negative on 10/11/18. Received SQ heparin for VTE prophylaxis Patient complained of anxiety and chest tightness. No pleuritic chest pain or hemoptysis. O2 sats improved since admission. CTA 10/16 demonstrated bilateral segmental and subsegmental PE's; no apparent RV strain per CT criteria. Prior history of PE. At chronic risk due to morbid obesity and relative inactivity. Niece reportedly has history of Factor V Leiden mutation. Pt was tested in the past and was negative. Will probably need long-term anticoagulation. Not candidate for enoxaparin or DOAC's because of BMI. Started IV heparin; transition to warfarin. Venous duplex of lower extremities negative for DVT. Skin lesions as noted, no new lesions; warfarin necrosis unlikely. INR today = 2.3. INR therapeutic x 2 days, overlapping with IV heparin. DC heparin. Titrate warfarin. (5) Chronic pain disorder: Chronic pain syndrome. Experiencing sciatica and right foot pain secondary to fracture. Receiving Suboxone, tramadol, gabapentin, as outpatient. Concerns about tramadol - SSRI interaction discussed with patient. Patient takes gabapentin which may be contributing to edema. Toradol had been ordered PRN, but stopped in light of PE and full anticoagulation. Patient insisting on additional analgesics on almost a daily basis. Holding Suboxone; ordered additional analgesics in the hope that it will assist in increasing activity and mobilizing pt. He understands that analgesic changes will be temporary. I am concerned about polypharmacology, escalating narcotics, and potential for side effects and drug interactions. Pt unwilling to decrease oxycodone or tramadol at this time. Gabapentin may be contributing to fluid retention- try to gradually decrease dose. Dose decreased to 900 mg TID. Ongoing efforts to decrease meds. (6) HTN (hypertension): Continue clonidine. (7) Hyperglycemia: Hyperglycemia secondary to steroids. Hemoglobin A1C was 7.0. FBS today = 119. Lantus / NovoLog per protocol. Tapering steroids. (8) Depression with anxiety: Continue duloxetine and hydroxyzine. (9) Obstipation: Bowel regimen as ordered. (10) Morbid obesity: Wt 200 kg. BMI 60. AHA diet. Pt eating double portions of meals and large amounts of snacks between meals. Importance of limiting caloric intake again emphasized. (11) Tobacco abuse disorder: Smoking cessation counseling. (12) Hand cramps: K normal. Recheck Mg. Consider hyperventilation; try rebreathing in bag if symptoms recur. (13) DVT prophylaxis: Received SQ heparin. Full anticoagulation with IV heparin --> warfarin initiated. Ambulate. (14) Discharge planning issues: Anticipate need for rehab. Family Medicine follow-up with Dr. Hogan. Subjective Recheck for multiple problems. Patient was seen in his room around 1949. Doesn't feel well. Tired. Nausea, no emesis, no diarrhea. Complains of bilateral hand tremors and cramping. No fever. Occasional cough. SOB. No pleuritic chest pain. No anginal symptoms. Voiding without difficulty. Physical Exam 2 Vital Signs (Past 24 Hours): Last Vital Signs Temp 36.8 C 10/24/18 15:54 Pulse 96 H 10/24/18 15:54 Resp 20 10/24/18 15:54 BP 188/79 H 10/24/18 15:54 Pulse Ox 93 10/24/18 15:54 Constitutional: no acute distress Respiratory: no respiratory distress Auscultation: + rhonchi (few) and + wheezes (diffuse,mild) Cardiovascular: Rate/Rhythm: regular rate, regular rhythm and + tachycardic Heart Sounds: no gallop, no murmur and no cardiac rub Vessels: + JVD Extremities: + edema (2+ pretibial); no calf tenderness Gastrointestinal (Abdomen): normal bowel sounds, soft, nontender, no hepatosplenomegaly Skin: no rashes, warm and dry + lesion (healing ulcers from hemorrhagic bullae bilateral thighs) Psychiatric: Orientation: alert and oriented x 3 Results & Data Laboratory Results Laboratory Results - last 24 hr 10/24/18 10/24/18 10/24/18 07:08 07:09 07:34 PT 22.2 H INR 2.3 H APTT 56.1 H* PTT Ratio 2.2 Sodium 132 L Potassium 3.9 Chloride 95 L Carbon Dioxide 29 Anion Gap 8.0 BUN 35 H Creatinine 1.21 Est Cr Clr Drug Dosing 132.1 Est GFR ( Amer) 81.6 Est GFR (Non-Af Amer) 70.4 BUN/Creatinine Ratio 28.8 H Glucose 125 H POC Glucose 119 H Calcium 10.0 Influenza Type A (PCR) Influenza Type B (PCR) 10/24/18 10/24/18 10/24/18 11:49 12:18 16:36 PT INR APTT PTT Ratio Sodium Potassium Chloride Carbon Dioxide Anion Gap BUN Creatinine Est Cr Clr Drug Dosing Est GFR ( Amer) Est GFR (Non-Af Amer) BUN/Creatinine Ratio Glucose POC Glucose 165 H 147 H Calcium Influenza Type A (PCR) Neg for Influ A Influenza Type B (PCR) Neg for Influ B 10/24/18 20:01 PT INR APTT PTT Ratio Sodium Potassium Chloride Carbon Dioxide Anion Gap BUN Creatinine Est Cr Clr Drug Dosing Est GFR ( Amer) Est GFR (Non-Af Amer) BUN/Creatinine Ratio Glucose POC Glucose 129 H Calcium Influenza Type A (PCR) Influenza Type B (PCR)
[2018-10-25] MEDS: ONDANSETRON INJ 2 MG/ML 2 ML VIAL IV PRN ×3 (02:14→21:14)
[2018-10-25] MEDS: TRAMADOL HCL 50 MG TABLET PO SCH ×4 (06:00→23:29)
[2018-10-25 07:54] LABS: Hematocrit (blood only) 40.1 % (42-52); Hemoglobin 13.2 g/dL (14.0-18.0); Mean Corpuscular Hgb Conc 32.9 g/dL (32-36); Mean Corpuscular Volume 86.4 fL (80-100); Mean Platelet Volume 10.2 fL (7.4-10.4); Nucleated RBC # (auto) 0.03 K/uL (0-0); Nucleated RBC % (auto) 0.2 %; Platelet Count 152 K/uL (130-400); RDW Coefficient of Variation 17.6 % (11.5-14.5); RDW Standard Deviation 55.2 fL (36.4-46.3); Red Blood Count 4.64 M/uL (4.7-6.1); White Blood Count 14.81 K/uL (4.8-10.8)
[2018-10-25] MEDS: OXYCODONE HCL 40 MG TABCR (OXYCONTIN) PO SCH ×2 (08:01→21:05)
[2018-10-25] MEDS: SPIRONOLACTONE 25 MG TAB PO SCH ×2 (08:01→14:31)
[2018-10-25 08:02] LABS: INR 2.2 (0.9-1.1); Prothrombin Time 20.9 Seconds (9.0-12.0)
[2018-10-25] MEDS: DULOXETINE HCL 60 MG CAP PO SCH (08:02)
[2018-10-25] MEDS: CYCLOBENZAPRINE HCL 10 MG TAB PO SCH ×3 (08:02→21:06)
[2018-10-25] MEDS: GABAPENTIN 300 MG CAP PO SCH ×3 (08:02→21:05)
[2018-10-25] MEDS: PANTOprazole 40 MG TAB PO SCH (08:02)
[2018-10-25] MEDS: FUROSEMIDE 40 MG in SYRINGE 0 ML IV SCH ×2 (08:03→14:32)
[2018-10-25] MEDS: ASPIRIN 81 MG ECTAB PO SCH (08:03)
[2018-10-25] MEDS: FLUTICASONE PROPIONATE NA SPR 16 GM BTL NAE SCH (08:04)
[2018-10-25] MEDS: TIOTROPIUM BROMIDE 5 PUFF/90 MCG INH INH SCH (08:04)
[2018-10-25] MEDS: SUCRALFATE 1 GM/10 ML UDC PO SCH ×4 (08:05→21:05)
[2018-10-25] MEDS: BUDESONIDE/FORMOTEROL FUMARATE 160/4.5 60 PUFFS/INHALER INH SCH ×2 (08:06→21:04)
[2018-10-25] MEDS: SODIUM CHLORIDE 0.65% NA SOLN 45 ML (OCEAN) SCH ×3 (08:07→21:07)
[2018-10-25] MEDS: INSULIN GLARGINE SOLOSTAR 100 UNITS/ML 3 ML PEN SC SCH ×2 (08:07→21:08)
[2018-10-25 08:22] LABS: BUN Creatinine Ratio 21.4 (10-20); Calcium 9.7 mg/dl (8.5-10.1); Creatinine Clr Calc Pharmacy 116.7 ml/min; Est GFR (African American) 70.2; Est GFR (Non-African American) 60.6; Potassium 3.9 mmol/L (3.5-5.1)
[2018-10-25] MEDS: predniSONE 10 MG TABLET PO SCH (08:22)
[2018-10-25] MEDS: POLYETHYLENE (MIRALAX) 17 GM PACK PO SCH (08:22)
[2018-10-25] MEDS: DOCUSATE SODIUM 100 MG CAP PO SCH ×2 (08:22→21:14)
[2018-10-25] MEDS: TAMSULOSIN HCL 0.4 MG CAP PO SCH (08:32)
[2018-10-25] MEDS: INSULIN ASPART 100 UNITS/ML 3 ML PEN SC SCH ×4 (08:33→21:06)
[2018-10-25] MEDS: cloNIDine HCl 0.1 MG TAB PO SCH ×2 (08:42→21:05)
[2018-10-25] MEDS: OXYCODONE HCL IR 5 MG TAB (IMMEDIATE RELEASE) PO PRN ×2 (10:08→16:48)
[2018-10-25] MEDS: POTASSIUM CHLORIDE 20 MEQ TABCR PO SCH ×2 (10:08→21:04)
[2018-10-25] MEDS: WARFARIN SOD 6 MG TAB PO SCH (16:42)
[2018-10-25] MEDS: NICOTINE 21 MG/24 HR TDSY TD SCH (16:44)
--- NOTE | 2018-10-25 21:35 | Hospitalist Progress Note ---
Date of Service October 25, 2018 Assessment & Plan (1) Hypoxia: Presented with hypoxia, probably due to combination of CHF and COPD at time of admission. May also have sleep apnea and / or obesity hypoventilation syndrome. Subsequently diagnosed with acute pulmonary emboli, but O2 sats stable / improved. Specific problems as noted below. Nocturnal oximetry night of 10/13 demonstrated O2 sats as low as 75%; will need nocturnal O2 at home. Check 2-step exercise oximetry prior to discharge. Outpatient sleep study recommended. (2) Diastolic CHF, acute: Probable acute on chronic left ventricular diastolic heart failure +/- right- sided heart failure. Patient advised to reduce fluid intake; trying fluid restriction of 3000 mls / day which patient finds to be very challenging. Has been receiving IV diuretics with good urine output. Weights trending downward slowly. Persistent edema. Chest x-ray 10/20 showed improved pulmonary edema. Importance of restricting sodium and fluid intake repeatedly discussed. Has been receiving IV furosemide for several days; transition to oral loop diuretic therapy with torsemide 20 mg BID. Increased spironolactone to 50 mg BID. Continue KCl 20 mEq BID- monitor K closely with increased spironolactone dosing. (3) COPD exacerbation: Exacerbation of COPD. Respiratory status improved. Received levofloxacin x 5 days- will DC. Tapered prednisone to 30 mg daily; continue taper as tolerated. Continue bronchodilators. (4) Pulmonary embolism: Venous duplex of lower extremities negative on 10/11/18. Received SQ heparin for VTE prophylaxis Patient complained of anxiety and chest tightness. No pleuritic chest pain or hemoptysis. O2 sats improved since admission. CTA 10/16 demonstrated bilateral segmental and subsegmental PE's; no apparent RV strain per CT criteria. Venous duplex of lower extremities negative for DVT. Prior history of PE. At chronic risk due to morbid obesity and relative inactivity. Niece reportedly has history of Factor V Leiden mutation. Pt was tested for Factor V Leiden mutaiton in the past and was negative. Homocysteine level was elevated. He was also tested for prothrombin gene mutation and anticardiolipin antibodies which were negative. Not appropriate to check protein C, protein S, or AT III levels at this time. Check MTHFR mutation and homocysteine level. Will probably need long-term anticoagulation. Not candidate for enoxaparin or DOAC's because of BMI. Started IV heparin; transition to warfarin. Skin lesions as noted, no new lesions; warfarin necrosis unlikely. Received IV heparin for about 8 days, overlapping with therapeutic INR x 2 days. INR today = 2.2. Continue warfarin 6 mg daily. (5) Chronic pain disorder: Chronic pain syndrome. Experiencing severe sciatica and right foot pain secondary to fracture. Receiving Suboxone, tramadol, gabapentin, as outpatient. Concerns about tramadol - duloxetine interaction discussed with patient. Patient takes gabapentin which may be contributing to edema. Toradol had been ordered PRN, but stopped in light of PE and full anticoagulation. Patient insisted on additional analgesics because of severe sciatica and inability to mobilize. Holding Suboxone; ordered additional analgesics in the hope that it will assist in increasing activity and mobilizing pt. He understands that analgesic changes will be temporary. Will need to taper oxycodone as tolerated and get patient back on Suboxone regimen as soon as possible. I am concerned about polypharmacology, escalating narcotics, and potential for side effects and drug interactions. Pt unwilling to decrease oxycodone or tramadol at this time. Gabapentin may be contributing to fluid retention- try to gradually decrease dose. Dose decreased to 900 mg TID. Ongoing efforts to decrease meds. (6) HTN (hypertension): Continue clonidine. (7) Hyperglycemia: Hyperglycemia secondary to steroids. Hemoglobin A1C was 7.0. FBS today = 179. Lantus / NovoLog per protocol. Tapering steroids. (8) Depression with anxiety: Continue duloxetine and hydroxyzine. (9) Obstipation: Bowel regimen as ordered. (10) Morbid obesity: Wt 200 kg. BMI 60. AHA diet. Pt eating double portions of meals and large amounts of snacks between meals. Importance of limiting caloric intake repeatedly emphasized by undersigned, nursing staff, and Nutrition. (11) Tobacco abuse disorder: Smoking cessation counseling. (12) Hand cramps: Patient complaining of hand tremors / cramps for past few days. K, Mg, ionized calcium normal. Hyperventilation considered, but pH only moderately elevated (7.46) on ABG. ? adverse effect from meds. As discussed again, polypharmacology has been an ongoing concern but patient has been very resistant to cutting back on meds. Tapering prednisone. Symbicort was started about the same time as onset of symptoms- DC. Only using nebs now occasionally, but will change from DuoNeb to levalbuterol. Decrease nicotine patch to 14 mcg. Gabapentin can cause tremors and fluid retention- continue to taper dose as tolerated. Concerned about tramadol-duloxetine interaction- encourage patient to decrease utilization of tramadol. Concerned about narcotics- taper as tolerated. (13) DVT prophylaxis: Received SQ heparin for DVT prophylaxis. Diagnosed with pulmonary embolism. Treated with full anticoagulation with IV heparin --> warfarin. Ambulate. (14) Discharge planning issues: Anticipate need for rehab. Family Medicine follow-up with Dr. Hogan. Subjective Recheck for multiple problems. Patient was seen in his room around 2100. Doesn't feel well. Tired. Complains of ongoing bilateral hand tremors and cramping. Nausea somewhat better. No emesis or diarrhea. No fever. Cough / SOB improved. Voiding without difficulty. Physical Exam 2 Vital Signs (Past 24 Hours): Last Vital Signs Temp 36.9 C 10/25/18 19:18 Pulse 108 H 10/25/18 19:18 Resp 20 10/25/18 19:18 BP 125/81 10/25/18 19:18 Pulse Ox 95 10/25/18 19:18 Constitutional: no acute distress Respiratory: no respiratory distress Auscultation: + wheezes (diffuse,mild ) Cardiovascular: Rate/Rhythm: regular rate and regular rhythm Heart Sounds: no gallop, no murmur and no cardiac rub Vessels: + JVD Extremities: + edema (2+ pretibial); no calf tenderness Gastrointestinal (Abdomen): normal bowel sounds, soft, nontender, no hepatosplenomegaly Skin: no rashes, warm and dry + lesion (healing ulcers from hemorrhagic bullae bilateral thighs) Neurologic: tremor of hands Psychiatric: Orientation: alert and oriented x 3 Results & Data Laboratory Results Laboratory Results - last 24 hr 10/25/18 10/25/18 10/25/18 07:23 07:30 07:30 WBC RBC Hgb Hct MCV MCH MCHC RDW Std Deviation RDW Coeff of Megan Plt Count MPV Absolute Nucleated RBC Nucleated RBC % (auto) PT 20.9 H INR 2.2 H ABG pH ABG pCO2 ABG pO2 ABG HCO3 ABG O2 Saturation ABG Base Excess Mariano Test Barometric Pressure Oxygen Given Sodium 132 L Potassium 3.9 Chloride 94 L Carbon Dioxide 32 Anion Gap 6.0 BUN 29 H Creatinine 1.37 Est Cr Clr Drug Dosing 116.7 Est GFR ( Amer) 70.2 Est GFR (Non-Af Amer) 60.6 BUN/Creatinine Ratio 21.4 H Glucose 140 H POC Glucose 179 H Calcium 9.7 Ionized Calcium Magnesium 10/25/18 10/25/18 10/25/18 07:30 11:26 16:31 WBC 14.81 H RBC 4.64 L Hgb 13.2 L Hct 40.1 L MCV 86.4 MCH 28.4 MCHC 32.9 RDW Std Deviation 55.2 H RDW Coeff of Megan 17.6 H Plt Count 152 MPV 10.2 Absolute Nucleated RBC 0.03 H Nucleated RBC % (auto) 0.2 PT INR ABG pH ABG pCO2 ABG pO2 ABG HCO3 ABG O2 Saturation ABG Base Excess Mariano Test Barometric Pressure Oxygen Given Sodium Potassium Chloride Carbon Dioxide Anion Gap BUN Creatinine Est Cr Clr Drug Dosing Est GFR ( Amer) Est GFR (Non-Af Amer) BUN/Creatinine Ratio Glucose POC Glucose 180 H 140 H Calcium Ionized Calcium Magnesium 10/25/18 10/25/18 10/25/18 20:51 22:01 22:01 WBC RBC Hgb Hct MCV MCH MCHC RDW Std Deviation RDW Coeff of Megan Plt Count MPV Absolute Nucleated RBC Nucleated RBC % (auto) PT INR ABG pH 7.46 H ABG pCO2 45 ABG pO2 76 L ABG HCO3 32 H ABG O2 Saturation 95.5 H ABG Base Excess 6.9 H Mariano Test Pos Barometric Pressure 734.8 Oxygen Given ROOM AIR Sodium Potassium Chloride Carbon Dioxide Anion Gap BUN Creatinine Est Cr Clr Drug Dosing Est GFR ( Amer) Est GFR (Non-Af Amer) BUN/Creatinine Ratio Glucose POC Glucose 126 H Calcium Ionized Calcium Magnesium 2.2 10/25/18 22:01 WBC RBC Hgb Hct MCV MCH MCHC RDW Std Deviation RDW Coeff of Megan Plt Count MPV Absolute Nucleated RBC Nucleated RBC % (auto) PT INR ABG pH ABG pCO2 ABG pO2 ABG HCO3 ABG O2 Saturation ABG Base Excess Mariano Test Barometric Pressure Oxygen Given Sodium Potassium Chloride Carbon Dioxide Anion Gap BUN Creatinine Est Cr Clr Drug Dosing Est GFR ( Amer) Est GFR (Non-Af Amer) BUN/Creatinine Ratio Glucose POC Glucose Calcium Ionized Calcium 1.18 Magnesium
[2018-10-25 22:15] LABS: HCO3 ABG 32 mmol/L (19-24); Oxygen Saturation ABG 95.5 % (90-95); PCO2 ABG 45 mmHg (35-46); PO2 ABG 76 mm/Hg (80-95); pH ABG 7.46 (7.35-7.45)
[2018-10-25 22:22] LABS: Allen Test Pos (Pos)
[2018-10-26] MEDS ORDERED: LEVALBUTEROL 1.25MG/0.5ML NEB NEB PRN (00:37)
[2018-10-26] MEDS: OXYCODONE HCL IR 5 MG TAB (IMMEDIATE RELEASE) PO PRN ×4 (03:29→23:38)
[2018-10-26] MEDS: TRAMADOL HCL 50 MG TABLET PO SCH ×3 (06:14→18:18)
[2018-10-26 07:52] LABS: INR 2.5 (0.9-1.1); Prothrombin Time 23.6 Seconds (9.0-12.0)
[2018-10-26 08:10] LABS: BUN Creatinine Ratio 21.8 (10-20); Calcium 9.5 mg/dl (8.5-10.1); Creatinine Clr Calc Pharmacy 109.6 ml/min; Est GFR (African American) 65.5; Est GFR (Non-African American) 56.5; Potassium 3.6 mmol/L (3.5-5.1)
[2018-10-26] MEDS: CYCLOBENZAPRINE HCL 10 MG TAB PO SCH ×3 (08:49→21:05)
[2018-10-26] MEDS: TAMSULOSIN HCL 0.4 MG CAP PO SCH (08:49)
[2018-10-26] MEDS: GABAPENTIN 300 MG CAP PO SCH ×3 (08:49→21:05)
[2018-10-26] MEDS: ASPIRIN 81 MG ECTAB PO SCH (08:49)
[2018-10-26] MEDS: DULOXETINE HCL 60 MG CAP PO SCH (08:49)
[2018-10-26] MEDS: PANTOprazole 40 MG TAB PO SCH (08:49)
[2018-10-26] MEDS: predniSONE 10 MG TABLET PO SCH (08:50)
[2018-10-26] MEDS: TORSEMIDE 20 MG TAB PO SCH ×2 (08:50→21:07)
[2018-10-26] MEDS: INSULIN GLARGINE SOLOSTAR 100 UNITS/ML 3 ML PEN SC SCH ×2 (08:52→21:09)
[2018-10-26] MEDS: SPIRONOLACTONE 25 MG TAB PO SCH ×3 (08:52→17:07)
[2018-10-26] MEDS: INSULIN ASPART 100 UNITS/ML 3 ML PEN SC SCH ×4 (08:55→21:06)
[2018-10-26] MEDS: POTASSIUM CHLORIDE 20 MEQ TABCR PO SCH ×2 (08:56→21:06)
[2018-10-26] MEDS: FLUTICASONE PROPIONATE NA SPR 16 GM BTL NAE SCH (08:56)
[2018-10-26] MEDS: SODIUM CHLORIDE 0.65% NA SOLN 45 ML (OCEAN) SCH ×3 (08:57→21:05)
[2018-10-26] MEDS: SUCRALFATE 1 GM/10 ML UDC PO SCH ×4 (08:57→21:04)
[2018-10-26] MEDS: DOCUSATE SODIUM 100 MG CAP PO SCH ×2 (09:24→21:04)
[2018-10-26] MEDS: OXYCODONE HCL 40 MG TABCR (OXYCONTIN) PO SCH ×2 (09:24→21:04)
[2018-10-26] MEDS: ONDANSETRON INJ 2 MG/ML 2 ML VIAL IV PRN ×2 (09:24→18:30)
[2018-10-26] MEDS: POLYETHYLENE (MIRALAX) 17 GM PACK PO SCH (10:26)
[2018-10-26] MEDS: cloNIDine HCl 0.1 MG TAB PO SCH ×2 (10:35→21:04)
[2018-10-26] MEDS: NICOTINE 14 MG/24 HR PATCH TD SCH ×2 (12:59→18:18)
[2018-10-26] MEDS: TIOTROPIUM BROMIDE 5 PUFF/90 MCG INH INH SCH (13:00)
[2018-10-26] MEDS: WARFARIN SOD 6 MG TAB PO SCH (17:07)
--- NOTE | 2018-10-26 17:48 | Hospitalist Progress Note ---
Date of Service October 26, 2018 Assessment & Plan (1) Hypoxia: Presented with hypoxia, probably due to combination of CHF and COPD at time of admission. May also have sleep apnea and / or obesity hypoventilation syndrome. symptom has resolved on room air CTA of chest acute pulmonary emboli, but O2 sats stable / improved. Nocturnal oximetry night of 10/13 demonstrated O2 sats as low as 75%; will need nocturnal O2 at home. Outpatient sleep study recommended. (2) Diastolic CHF, acute: Probable acute on chronic left ventricular diastolic heart failure +/- right- sided heart failure. Patient advised to reduce fluid intake; trying fluid restriction of 3000 mls / day which patient finds to be very challenging. Has been receiving IV diuretics with good urine output. Weights trending downward slowly. improvement of lower ext edema. Chest x-ray 10/20 showed improved pulmonary edema. Importance of restricting sodium and fluid intake repeatedly discussed. oral loop diuretic therapy with torsemide 20 mg BID. Increased spironolactone to 50 mg BID. Continue KCl 20 mEq BID- monitor K closely with increased spironolactone dosing. (3) COPD exacerbation: resolved no wheeze or SOB Exacerbation of COPD. Respiratory status improved. completed levofloxacin x 5 days- discontinued cont to Tapered prednisone Continue bronchodilators. (4) Pulmonary embolism: Venous duplex of lower extremities negative on 10/11/18. CTA 10/16 demonstrated bilateral segmental and subsegmental PE's; no apparent RV strain per CT criteria. Venous duplex of lower extremities negative for DVT. Prior history of PE. At chronic risk due to morbid obesity and relative inactivity. Pt was tested for Factor V Leiden mutaiton in the past and was negative. Homocysteine level was elevated. started on folic wna prothrombin gene mutation and anticardiolipin antibodies which were negative. Not appropriate to check protein C, protein S, or AT III levels at this time on anticoagulation MTHFR mutation and homocysteine level ordered Will probably need long-term anticoagulation. Not candidate for enoxaparin or DOAC's because of BMI. on coumaidn INR theraputic Continue warfarin 6 mg daily. (5) Chronic pain disorder: Chronic pain syndrome. difficult to treat symptom was on Suboxone, tramadol, gabapentin, as outpatient. Concerns about tramadol - duloxetine interaction discussed with patient. Holding Suboxone; ordered additional analgesics in the hope that it will assist in increasing activity and mobilizing pt. He understands that analgesic changes will be temporary. Will need to taper oxycodone as tolerated and get patient back on Suboxone regimen as soon as possible. I am concerned about polypharmacology, escalating narcotics, and potential for side effects and drug interactions. Pt unwilling to decrease oxycodone or tramadol at this time. Gabapentin may be contributing to fluid retention- try to gradually decrease dose. Dose decreased to 900 mg TID. Ongoing efforts to decrease meds. pt was seen by pain management team multiple times in past -non compliant (6) HTN (hypertension): Continue clonidine. (7) Hyperglycemia: Hyperglycemia secondary to steroids. Hemoglobin A1C was 7.0. FBS today = 179. Lantus / NovoLog per protocol. Tapering steroids. (8) Depression with anxiety: Continue duloxetine and hydroxyzine. (9) Obstipation: Bowel regimen as ordered. (10) Morbid obesity: Wt 200 kg. BMI 60. AHA diet. Pt eating double portions of meals and large amounts of snacks between meals. Importance of limiting caloric intake repeatedly emphasized by undersigned, nursing staff, and Nutrition. (11) Tobacco abuse disorder: Smoking cessation counseling. (12) Hand cramps: Patient complaining of hand tremors / cramps for past few days. K, Mg, ionized calcium normal. Hyperventilation considered, but pH only moderately elevated (7.46) on ABG. ? adverse effect from meds. As discussed again, polypharmacology has been an ongoing concern but patient has been very resistant to cutting back on meds. Tapering prednisone. Symbicort was started about the same time as onset of symptoms- DC. Only using nebs now occasionally, but will change from DuoNeb to levalbuterol. Decrease nicotine patch to 14 mcg. Gabapentin can cause tremors and fluid retention- continue to taper dose as tolerated. Concerned about tramadol-duloxetine interaction- encourage patient to decrease utilization of tramadol. Concerned about narcotics- taper as tolerated. (13) DVT prophylaxis: on coumadin Ambulate. (14) Discharge planning issues: Anticipate need for rehab. referral made to [facility] Medicine follow-up with Dr. Hogan. Subjective having tremors in both hand and cramps pain is controlled with current pain med regimen no SOB or hypoxia ,in RA Physical Exam 2 Vital Signs (Past 24 Hours): Last Vital Signs Temp 37.0 C 10/26/18 14:23 Pulse 104 H 10/26/18 14:23 Resp 20 10/26/18 14:23 BP 119/82 10/26/18 14:23 Pulse Ox 95 10/26/18 14:23 Constitutional: WD/WN, vitals as above (obese ) no acute distress Eyes: PERRL, conjunctivae normal, anicteric sclerae Neck: trachea midline, no thyromegaly Cardiovascular: Rate/Rhythm: regular rate and regular rhythm Gastrointestinal (Abdomen): Percussion/Palpation: abdomen soft; abdomen nontender Musculoskeletal: fine resting tremors on both hands Neurologic: PERRL, EOMI, accommodation nl, no face palsy, no dysarthria Psychiatric: A+Ox3, euthymic affect
[2018-10-27] MEDS: OXYCODONE HCL IR 5 MG TAB (IMMEDIATE RELEASE) PO PRN ×2 (06:00→12:05)
[2018-10-27] MEDS: TRAMADOL HCL 50 MG TABLET PO SCH ×3 (06:00→12:36)
[2018-10-27 06:39] LABS: Hematocrit (blood only) 39.9 % (42-52); Hemoglobin 13.5 g/dL (14.0-18.0); Mean Corpuscular Hgb Conc 33.8 g/dL (32-36); Mean Corpuscular Volume 85.4 fL (80-100); Mean Platelet Volume 10.8 fL (7.4-10.4); Platelet Count 147 K/uL (130-400); RDW Coefficient of Variation 17.5 % (11.5-14.5); RDW Standard Deviation 53.8 fL (36.4-46.3); Red Blood Count 4.67 M/uL (4.7-6.1); White Blood Count 11.72 K/uL (4.8-10.8)
[2018-10-27 07:08] LABS: BUN Creatinine Ratio 21.4 (10-20); Calcium 9.4 mg/dl (8.5-10.1); Creatinine Clr Calc Pharmacy 98.7 ml/min; Est GFR (African American) 57.7; Est GFR (Non-African American) 49.8; Potassium 3.7 mmol/L (3.5-5.1)
[2018-10-27 07:16] LABS: INR 2.5 (0.9-1.1); Prothrombin Time 23.7 Seconds (9.0-12.0)
[2018-10-27] MEDS: DOCUSATE SODIUM 100 MG CAP PO SCH (08:52)
[2018-10-27] MEDS: OXYCODONE HCL 40 MG TABCR (OXYCONTIN) PO SCH (08:52)
[2018-10-27] MEDS: TORSEMIDE 20 MG TAB PO SCH (08:52)
[2018-10-27] MEDS: POLYETHYLENE (MIRALAX) 17 GM PACK PO SCH (08:52)
[2018-10-27] MEDS: SUCRALFATE 1 GM/10 ML UDC PO SCH ×2 (08:52→12:36)
[2018-10-27] MEDS: POTASSIUM CHLORIDE 20 MEQ TABCR PO SCH (08:53)
[2018-10-27] MEDS: ASPIRIN 81 MG ECTAB PO SCH (08:53)
[2018-10-27] MEDS: TAMSULOSIN HCL 0.4 MG CAP PO SCH (08:53)
[2018-10-27] MEDS: FLUTICASONE PROPIONATE NA SPR 16 GM BTL NAE SCH (08:53)
[2018-10-27] MEDS: CYCLOBENZAPRINE HCL 10 MG TAB PO SCH (08:54)
[2018-10-27] MEDS: SPIRONOLACTONE 25 MG TAB PO SCH (08:54)
[2018-10-27] MEDS: GABAPENTIN 300 MG CAP PO SCH (08:54)
[2018-10-27] MEDS: DULOXETINE HCL 60 MG CAP PO SCH (08:54)
[2018-10-27] MEDS: PANTOprazole 40 MG TAB PO SCH (08:55)
[2018-10-27] MEDS: predniSONE 10 MG TABLET PO SCH (08:55)
[2018-10-27] MEDS: SODIUM CHLORIDE 0.65% NA SOLN 45 ML (OCEAN) SCH (08:56)
[2018-10-27] MEDS: cloNIDine HCl 0.1 MG TAB PO SCH (08:58)
[2018-10-27] MEDS: INSULIN ASPART 100 UNITS/ML 3 ML PEN SC SCH ×2 (09:12→12:37)
[2018-10-27] MEDS: TIOTROPIUM BROMIDE 5 PUFF/90 MCG INH INH SCH (09:39)
[2018-10-27] MEDS: INSULIN GLARGINE SOLOSTAR 100 UNITS/ML 3 ML PEN SC SCH (09:40)
[2018-10-27] MEDS: ONDANSETRON INJ 2 MG/ML 2 ML VIAL IV PRN (11:20)
--- NOTE | 2018-10-27 12:50 | Discharge Summary ---
Date of Service October 27, 2018 Admission HPI Per Admitting Provider This is a 48 year old male with significant PMH of moderate COPD, Tobacco abuse , chronic pain syndrome on chronic narcotic, depression & anxiety, hx of PE, hx of drug overdose, GERD, morbid obesity who presents to [facility] ED secondary to 25lb weight gain, MAXWELL and ill feeling x 10 days. Pt recently confined 09/15/18- 09/20/18 secondary to COPD outpatient. Had been doing well outpt with home health nursing who had been monitoring weight and O2 sat. Over past 2 weeks has noticed increase weight gain, 18lb approx 3 days ago and was recommended to seek ED, but he states he felt fine at time. This morning was noted to have further increase in weight gain to 25lbs. Further notes MAXWELL, chest heaviness throughout precordium, orthopnea, sleeps in recliner, chronic productive cough with purulent sputum. Given increased sob patient started a Zpack, and recently finished course yesterday. Denies f/c/s, dizziness, lightheaded, SOB at rest, hemoptysis, n/v/d, abdominal pain. Has increase freq with urination given lasix, but denies hematuria, increased urgency, melena, hematochezia. Complains of increased swelling in legs and abdomen. Unsure if he has been compliant with fluid restriction. Appetite has been normal. Continues to smoke but trying to quit, down to 1ppd. Principal Diagnosis COPD exacerbation/pulmonary embolism/acute CHF with diastolic heart failure Discharge Exam Constitutional WD/WN, vitals as above (obese ) no acute distress Eyes PERRL, conjunctivae normal, anicteric sclerae Neck trachea midline, no thyromegaly Cardiovascular Rate/Rhythm: regular rate and regular rhythm Gastrointestinal (Abdomen) Percussion/Palpation: abdomen soft; abdomen nontender Neurologic PERRL, EOMI, accommodation nl, no face palsy, no dysarthria Psychiatric A+Ox3, euthymic affect Discharge Data Allergies Allergy/AdvReac Type Severity Reaction Status Date / Time fentanyl Allergy Intermediate RASH/HIVES/SKIN Verified 10/10/18 15:42 REDNESS acetaminophen AdvReac Intermediate "THEY TOLD Verified 10/18/18 22:30 ME I GET KIDNEY DISEASE" valproic acid AdvReac Intermediate PANCREATITS Verified 10/10/18 15:42 Consultations 10/10/18 15:25 ED Decision to Admit Stat 10/10/18 18:19 Consult Cardiology Routine Consult Nephrology Routine 10/24/18 12:34 Consult Gastroenterology Routine Ordered Studies 10/11/18 11:02 US venous doppler LE BI Routine 10/16/18 15:52 CT angio chest PE protocol Urgent 10/18/18 13:47 US venous doppler LE Routine Hospital Course (1) Hypoxia: Resolved, no complaint of shortness of breath, no orthopnea, no dyspnea on exertion In room air, with adequate saturation Presented with hypoxia, probably due to combination of CHF and COPD at time of admission. May also have sleep apnea and / or obesity hypoventilation syndrome. symptom has resolved CTA of chest acute pulmonary emboli, but O2 sats stable / improved. Nocturnal oximetry night of 10/13 demonstrated O2 sats as low as 75%; will need nocturnal O2 at home. Recommendation ordered for nighttime oxygen Outpatient sleep study recommended. (2) Diastolic CHF, acute: Presented with hypoxia, volume overload Probable acute on chronic left ventricular diastolic heart failure +/- right- sided heart failure. Patient advised to reduce fluid intake; trying fluid restriction of 3000 mls / day which patient finds to be very challenging. Received diuresis with IV Lasix Weights trending downward slowly. improvement of lower ext edema. Chest x-ray 10/20 showed improved pulmonary edema. Importance of restricting sodium and fluid intake repeatedly discussed. Vision will be discharged with oral loop diuretic therapy with torsemide 20 mg BID. Increased spironolactone to 50 mg BID. (3) COPD exacerbation: resolved no wheeze or SOB Exacerbation of COPD. Respiratory status improved. completed levofloxacin x 5 days- discontinued cont to Tapered prednisone Continue bronchodilators. (4) Pulmonary embolism: Venous duplex of lower extremities negative on 10/11/18. CTA 10/16 demonstrated bilateral segmental and subsegmental PE's; no apparent RV strain per CT criteria. Venous duplex of lower extremities negative for DVT. Prior history of PE. At chronic risk due to morbid obesity and relative inactivity. Pt was tested for Factor V Leiden mutaiton in the past and was negative. Homocysteine level was elevated. started on folic wan prothrombin gene mutation and anticardiolipin antibodies which were negative. Not appropriate to check protein C, protein S, or AT III levels at this time on anticoagulation MTHFR mutation and homocysteine level ordered Will probably need long-term anticoagulation. Not candidate for enoxaparin or DOAC's because of BMI. on coumaidn INR theraputic Continue warfarin 6 mg daily. (5) Chronic pain disorder: Chronic pain syndrome. difficult to treat symptom was on Suboxone, tramadol, gabapentin, as outpatient. Concerns about tramadol - duloxetine interaction discussed with patient. Gabapentin may be contributing to fluid retention- try to gradually decrease dose. Dose decreased to 900 mg TID. pt was seen by pain management team multiple times in past -non compliant Will discontinue tramadol for drug reaction with Cymbalta Patient will be discharged with OxyContin twice daily, as needed OxyIR for breakthrough pain (6) HTN (hypertension): Continue clonidine. (7) Hyperglycemia: Hemoglobin A1C was 7.0. Lantus / NovoLog per protocol. (8) Depression with anxiety: Continue duloxetine and hydroxyzine. (9) Obstipation: Bowel regimen as ordered. (10) Morbid obesity: Wt 200 kg. BMI 60. AHA diet. Pt eating double portions of meals and large amounts of snacks between meals. Importance of limiting caloric intake repeatedly emphasized by undersigned, nursing staff, and Nutrition. (11) Tobacco abuse disorder: Smoking cessation counseling. (12) Hand cramps: Symptom has resolved Patient complaining of hand tremors / cramps for past few days. K, Mg, ionized calcium normal. Only using nebs now occasionally,changed from DuoNeb to levalbuterol. Gabapentin dose reduced for possible side effect Concerned about tramadol-duloxetine interaction-tramadol disc (13) DVT prophylaxis: on coumadin Ambulate. (14) Discharge planning issues: Patient is accepted at [facility] for continued rehab Medically stable to be transferred to [facility] today Family Medicine follow-up with Dr. Hogan. Total Time Total Time Spent Total Time Spent (In Minutes): Approximate 40 minutes Discharge Plan Discharge Items Patient Disposition: Transfer Inpatient Rehab Fac Reason For Visit: DIASTOLIC CHF/ANASARCA Discharge Diagnosis: DIASTOLIC CHF /PULMONARY EMBOLISM Discharge Goals: Decrease discomfort, Increase independence and Therapeutic intervention Activity: Resume your previous activity Activity Comment: CONTINUE PHYSICAL THERAPY /OCCUPATIONAL THERAPY AT [facility] Non-emergency contact: Primary Care Provider Call non-emergency contact if: you have any medication questions Diet: Heart Healthy Fluids: 1800ml (7 cups) Addtl Provider Instructions: PLEASE CONTINUE TO FOLLOW FLUID AND SALT RESTRICTIONS TO PREVENT VOLUME OVERLOAD /DECOMPENSATION OF CHF PT/INR CHECK ON Wednesday10/31/18 THEN CONTINUE TO MONITOR PER PROTOCOL Prescriptions: New torsemide 20 mg Tablet 20 mg PO BID 30 Days Qty: 60 RF: 0 sucralfate 100 mg/mL Suspension 10 ml PO QID 30 Days Qty: 1200 RF: 0 aspirin [Ecotrin Low Strength] 81 mg Tablet,Delayed Release (Dr/Ec) 81 mg PO DAILY 30 Days Qty: 30 RF: 0 spironolactone 25 mg Tablet 50 mg PO BID 30 Days Qty: 120 RF: 0 warfarin [Coumadin] 6 mg Tablet 6 mg PO DAILY 30 Days Qty: 30 RF: 0 tamsulosin 0.4 mg Capsule 0.4 mg PO QAM 30 Days Qty: 30 RF: 0 gabapentin 300 mg Capsule 900 mg PO TID 30 Days Qty: 270 RF: 0 oxycodone 5 mg Tablet 10 mg PO Q8 PRN (Reason: pain) Qty: 10 RF: 0 tiotropium bromide [Spiriva with HandiHaler] 18 mcg Capsule, W/Inhalation Device 1 puff Inhalation QAM 30 Days Qty: 30 RF: 0 duloxetine 60 mg Capsule,Delayed Release(Dr/Ec) 60 mg PO DAILY 30 Days Qty: 30 RF: 0 oxycodone [OxyContin] 40 mg Tablet,Oral Only,Ext.Rel.12 Hr 40 mg PO Q12 3 Days Qty: 6 RF: 0 Continue clonidine HCl 0.1 mg tablet 0.1 mg PO BID RF: 0 omeprazole 20 mg capsule,delayed release(DR/EC) 20 mg PO DAILY RF: 0 hydroxyzine HCl 25 mg tablet 25 mg PO Q6H RF: 0 fluticasone 50 mcg/actuation spray,suspension 2 spray Intranasal DAILY RF: 0 ipratropium-albuterol 0.5 mg-3 mg(2.5 mg base)/3 mL Solution For Nebulization 3 ml INHALATION QID PRN (Reason: Shortness Of Breath Or Wheezing) RF: 0 trazodone 50 mg Tablet 50 mg PO QPM PRN (Reason: Insomnia) RF: 0 prednisone 10 mg tablet 10 mg PO DIRECTED RF: 0 potassium chloride 10 mEq tablet,ER particles/crystals 10 meq PO DAILY RF: 0 albuterol sulfate [Ventolin HFA] 90 mcg/actuation HFA aerosol inhaler 2 puff Inhalation Q4H PRN (Reason: Shortness Of Breath Or Wheezing) RF: 0 cyclobenzaprine 10 mg Tablet 10 mg PO TID RF: 0 tramadol 50 mg Tablet 100 mg PO Q4H RF: 0 polyethylene glycol 3350 [Miralax] 17 gram Powder In Packet 17 g PO DAILY RF: 0 Discontinued gabapentin 600 mg tablet 600 mg PO TID RF: 0 gabapentin 400 mg capsule 400 mg PO TID RF: 0 torsemide 5 mg tablet 5 mg PO BID PRN (Reason: Weight of 2# or more) RF: 0 ketorolac 10 mg Tablet 10 mg PO Q6H PRN (Reason: Pain) RF: 0 duloxetine 60 mg Capsule,Delayed Release(Dr/Ec) 60 mg PO DAILY RF: 0 No Action buprenorphine-naloxone 8-2 mg tablet, sublingual 0.5 tab Sublingual DAILY@1200 RF: 0 buprenorphine-naloxone 8-2 mg tablet, sublingual 1 tab Sublingual AMPM RF: 0 Stand-Alone Forms: [facility] Discharge Orders: Discharge Order (Routine); Ordered 10/27/18 Ordered By: Roxy Bradshaw Skilled Items Patient informed of condition?: Yes DNR: No Discharge Level of Care: Acute rehab Communicable Disease: No Discharge Prognosis: Stable Admission Data Admit Date/Time: 10/10/18 16:50 Attending Provider: Roxy Bradshaw Admit Provider: Mala Grace Primary Care Provider: Owen Hogan Other Providers: Mala Grace ; Yvon Del Valle ; Portia Mcpherson ; Eduardo Chapman ; Lit Blanco Service: Telemetry Other Interventions: Discharge Summary Assessment (RN) Last Done: 10/27/18 12:30
== END 2018-10-27 13:05 ==
LOC: ED 13:52 → 2N 16:50 → SUATTDRO 16:50 → 2N 17:49 → 2W 10-17 23:13

== ENCOUNTER 2018-11-17 16:26 | Inpatient (IN) ==
[2018-11-17] MEDS ORDERED: FUROSEMIDE 40 MG/4 ML VIAL IV STA (16:51)
[2018-11-17] MEDS ORDERED: ALBUT/IPRATROP 3MG/0.5MG NEB 3 ML VIAL INH STA (16:51)
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
--- NOTE | 2018-11-17 17:05 | XRay Report ---
XR chest 1V portable CLINICAL HISTORY: 48 years-old Male presenting with sob and chest pain for 2 days. TECHNIQUE: Portable upright AP view of the chest was obtained. COMPARISON: 10/20/2018. FINDINGS: Cardiac silhouette moderately enlarged. Mild pulmonary vessel prominence. Mildly low lung volumes. Mi nimal basilar opacities. No pleural effusion or pneumothorax. Osseous structures grossly normal. IMPRESSION: 1. Mildly low lung volumes with minimal bibasilar atelectasis suspected. 2. Cardiomegaly. No yeimi pulmonary edema. Electronically signed by: Joey Merida M.D. 11/17/2018 5:03 PM
[2018-11-17] MEDS: MoRPHine SULFATE 4 MG/ML 1 ML CARP\\VIAL IV PRN ×2 (17:18→19:14)
[2018-11-17 17:23] LABS: Basophils # (auto) 0.11 K/uL (0-0.2); Basophils % (auto) 0.8 %; Eosinophils # (auto) 0.27 K/uL (0-0.5); Hematocrit (blood only) 35.7 % (42-52); Hemoglobin 11.8 g/dL (14.0-18.0); Immature Granulocytes # (auto) 0.53 K/uL (0.00-0.02); Lymphocytes % (auto) 18.1 %; Mean Corpuscular Hgb Conc 33.1 g/dL (32-36); Mean Corpuscular Volume 84.6 fL (80-100); Mean Platelet Volume 9.6 fL (7.4-10.4); Monocytes # (auto) 0.89 K/uL (0.11-0.59); Monocytes % (auto) 6.7 %; Neutrophils # (auto) 9.09 K/uL (1.4-6.5); Neutrophils % (auto) 68.4 %; Nucleated RBC # (auto) 0.02 K/uL (0-0); Nucleated RBC % (auto) 0.2 %; Platelet Count 229 K/uL (130-400); RDW Coefficient of Variation 16.5 % (11.5-14.5); RDW Standard Deviation 50.5 fL (36.4-46.3); Red Blood Count 4.22 M/uL (4.7-6.1); White Blood Count 13.29 K/uL (4.8-10.8)
[2018-11-17 17:45] LABS: Partial Thromboplastin Ratio 2.5; Prothrombin Time > 90.0 Seconds (9.0-12.0)
[2018-11-17 17:46] LABS: Alanine Aminotransferase 34 U/L (12-78); Albumin Level 2.9 gm/dl (3.4-5.0); Aspartate Aminotransferase 15 U/L (15-37); BUN Creatinine Ratio 16.2 (10-20); Blood Urea Nitrogen 18 mg/dl (7-18); Calcium 8.6 mg/dl (8.5-10.1); Carbon Dioxide 28 mmol/L (21-32); Chloride 103 mmol/L (98-107); Creatinine Clr Calc Pharmacy 144.9 ml/min; Est GFR (African American) 88.6; Est GFR (Non-African American) 76.4; Glucose 135 mg/dl (70-99); Magnesium 1.8 mg/dl (1.8-2.4); Potassium 3.6 mmol/L (3.5-5.1); Sodium 138 mmol/L (136-145)
[2018-11-17 17:50] LABS: INR > 10.4 (0.9-1.1)
[2018-11-17 17:51] LABS: Albumin Globulin Ratio 0.7 (0.9-2); Alkaline Phosphatase 112 U/L (45-117); Bilirubin,Total 0.3 mg/dl (0.2-1); Globulin 3.9 gm/dl (2.5-4.0); NT Pro B Type Natriuretic Pept 34 pg/ml (0-450); Partial Thromboplastin Time 68.4 Seconds (21.0-31.0); Total Protein 6.8 gm/dl (6.4-8.2); Troponin I < 0.015 ng/ml (0-0.045)
--- NOTE | 2018-11-17 17:52 | CT Scan Report ---
CT head/brain wo con CLINICAL HISTORY: 48 years-old Male presenting with fall, coumadin. TECHNIQUE: Multidetector CT imaging of the head was performed without the use of intravenous contrast . IV contrast: None. One or more dose lowering techniques were used consistent with the principles of ALARA (as low as reasonably achievable), including automatic exposure control, mA or kV adjustment t o individual patient size, and/or use of iterative reconstruction. COMPARISON: 07/09/2018. CT DOSE (mGy.cm): The estimated cumulative dose is 1812.68 mGycm. 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 Ventricles and sulci normal in size. No hemorrhage. Brain parenchyma normal in appearance with preser nani donald-white differentiation. No acute territorial infarct. No mass effect or midline shift. No ext ra-axial fluid collection. Paranasal sinuses and mastoid air cells clear. Calvarium intact. IMPRESSION: 1. No acute intracranial abnormality. Electronically signed by: Joey Merida M.D. 11/17/2018 5:51 PM
[2018-11-17] MEDS ORDERED: cefTRIAXone SODIUM 1,000 MG/50 ML BAG IV STA (17:55)
[2018-11-17] MEDS ORDERED: PHYTONADIONE 5 MG TAB PO STA (17:56)
[2018-11-17] MEDS ORDERED: TRAMADOL HCL 50 MG TABLET PO STA (18:20)
[2018-11-17] MEDS ORDERED: PHYTONADIONE 5 MG in SODIUM CHLORIDE 0.9% 50 ML IV ONE (18:30)
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
[2018-11-17] MEDS ORDERED: GLUCAGON FOR INJ 1 MG VIAL SQ PRN (20:06)
[2018-11-17] MEDS ORDERED: GLUCOSE 10 TABS/TUBE PO PRN (20:06)
[2018-11-17] MEDS ORDERED: GLUCOSE 40% GEL 15 GM TUBE PO PRN (20:06)
[2018-11-17] MEDS ORDERED: DEXTROSE 50% 50 ML SYRINGE IV PRN (20:06)
[2018-11-17] MEDS ORDERED: TRAZODONE HCL 50 MG TAB PO PRN (20:06)
[2018-11-17] MEDS ORDERED: CARBOHYDRATES FOR HYPOGLYCEMIA PO PRN (20:06)
[2018-11-17] MEDS ORDERED: FUROSEMIDE 40 MG/4 ML VIAL IV SCH (21:00)
[2018-11-17] MEDS: NICOTINE 7 MG/24 HR TDSY TD SCH (21:49)
[2018-11-17] MEDS: SPIRONOLACTONE 25 MG TAB PO SCH (21:49)
[2018-11-17] MEDS: SUCRALFATE 1 GM/10 ML UDC PO SCH (21:49)
[2018-11-17] MEDS: FUROSEMIDE 40 MG in SYRINGE 0 ML IV SCH (21:50)
[2018-11-17] MEDS: MAGNESIUM OXIDE 400 MG TAB PO SCH (21:50)
[2018-11-17] MEDS: INSULIN ASPART 100 UNITS/ML 3 ML PEN SC SCH (21:51)
[2018-11-17] MEDS: cloNIDine HCl 0.1 MG TAB PO SCH (22:39)
[2018-11-17] MEDS: OXYCODONE HCL IR 5 MG TAB (IMMEDIATE RELEASE) PO PRN (22:39)
[2018-11-17] MEDS: MoRPHine SULFATE CR 15 MG TABCR PO SCH (22:40)
[2018-11-17 22:42] LABS: INR 5.1 (0.9-1.1); Partial Thromboplastin Ratio 2.2; Prothrombin Time 46.3 Seconds (9.0-12.0)
[2018-11-17] MEDS: GABAPENTIN 300 MG CAP PO SCH (22:48)
[2018-11-17 23:41] LABS: Partial Thromboplastin Time 60.3 Seconds (21.0-31.0)
[2018-11-18] MEDS: TRAMADOL HCL 50 MG TABLET PO PRN ×4 (01:12→21:05)
[2018-11-18] MEDS: OXYCODONE HCL IR 5 MG TAB (IMMEDIATE RELEASE) PO PRN ×4 (05:36→23:13)
[2018-11-18 05:59] LABS: Hematocrit (blood only) 35.8 % (42-52); Hemoglobin 11.9 g/dL (14.0-18.0); Mean Corpuscular Hgb Conc 33.2 g/dL (32-36); Mean Corpuscular Volume 83.8 fL (80-100); Mean Platelet Volume 9.9 fL (7.4-10.4); Nucleated RBC # (auto) 0.04 K/uL (0-0); Nucleated RBC % (auto) 0.3 %; Platelet Count 234 K/uL (130-400); RDW Coefficient of Variation 16.8 % (11.5-14.5); RDW Standard Deviation 51.6 fL (36.4-46.3); Red Blood Count 4.27 M/uL (4.7-6.1); White Blood Count 12.71 K/uL (4.8-10.8)
[2018-11-18 06:23] LABS: INR 2.7 (0.9-1.1); Partial Thromboplastin Ratio 1.9; Prothrombin Time 25.6 Seconds (9.0-12.0)
[2018-11-18 06:24] LABS: Basophils # (auto) 0.11 K/uL (0-0.2); Basophils % (auto) 0.9 %; Eosinophils # (auto) 0.25 K/uL (0-0.5); Immature Granulocytes # (auto) 0.65 K/uL (0.00-0.02); Immature Granulocytes % (auto) 5.1 %; Lymphocytes # (auto) 2.33 K/uL (1.2-3.4); Lymphocytes % (auto) 18.3 %; Monocytes # (auto) 1.12 K/uL (0.11-0.59); Monocytes % (auto) 8.8 %; Neutrophils # (auto) 8.25 K/uL (1.4-6.5); Neutrophils % (auto) 64.9 %
[2018-11-18 06:27] LABS: Partial Thromboplastin Time 50.4 Seconds (21.0-31.0)
[2018-11-18 07:19] LABS: Estimated Average Glucose 160 mg/dl; Hemoglobin A1C 7.2 % (4.5-5.6)
[2018-11-18] MEDS: FUROSEMIDE 40 MG in SYRINGE 0 ML IV SCH ×3 (08:13→20:38)
[2018-11-18] MEDS: SUCRALFATE 1 GM/10 ML UDC PO SCH ×4 (08:14→20:38)
[2018-11-18] MEDS: TIOTROPIUM BROMIDE 5 PUFF/90 MCG INH INH SCH (08:14)
[2018-11-18] MEDS: SPIRONOLACTONE 25 MG TAB PO SCH ×2 (08:14→16:57)
[2018-11-18] MEDS: cloNIDine HCl 0.1 MG TAB PO SCH ×2 (08:15→20:37)
[2018-11-18] MEDS: PANTOprazole 40 MG TAB PO SCH (08:15)
[2018-11-18] MEDS: POTASSIUM CHLORIDE 10 MEQ TABCR PO SCH (08:15)
[2018-11-18] MEDS: GABAPENTIN 300 MG CAP PO SCH ×3 (08:16→20:37)
[2018-11-18] MEDS: TAMSULOSIN HCL 0.4 MG CAP PO SCH (08:16)
[2018-11-18] MEDS: DULOXETINE HCL 60 MG CAP PO SCH (08:16)
[2018-11-18] MEDS: MoRPHine SULFATE CR 15 MG TABCR PO SCH ×2 (08:21→20:51)
[2018-11-18] MEDS: INSULIN ASPART 100 UNITS/ML 3 ML PEN SC SCH ×5 (08:22→21:05)
[2018-11-18] MEDS: MAGNESIUM OXIDE 400 MG TAB PO SCH (10:48)
--- NOTE | 2018-11-18 15:17 | Hospitalist Progress Note ---
Date of Service November 18, 2018 Assessment & Plan (1) CHF exacerbation: Acute Diastolic CHF exacerbation Mostly due to non compliant from fluid intake (Already drank 5 cans of soda before noon) Weight on discharge on 10/27 was 194kg, weight on admission was 204 kg CXR on admission showed mild low lung volumes with minimal bibasilar atelectasis suspected. Was starting on IV lasix 40mg TID, continue lasix Monitor I/O Strict fluid restriction with 1.5L Monitor electrolytes Lower extremities edema/redness Possible cellulitis Elevated Leukocytosis Continue rocephin IV for now blood cx pending Pulmonary embolism INR on admission supratherapeutic above 10 Received Vit K yesterday INR 2.7 today Will resume coumadin a 5 mg daily Monitor PT/INR Chronic pain disorder Continue Morphine 15mg BID and oxycodone 10mg On gabapentin 900mg TID stable HTN Continue clonidine BID BP stable Depression with anxiety: On Duloxetine and hydroxyzine Type 2 diabetes mellitus Most recent HbA1c of 7.2 low carbohydrate diabetic diet On sliding scale insulin Monitor BS Consult diabetic education Morbid obesity BMI 61 Counseling on weight loss and diet Right foot injury Xray on 09/16/18 showed Transverse fracture forming about the mid diaphyseal aspect of the third metatarsal is noted with peripheral cortication of the fracture fragments. No bony bridging of the fracture fragments. Surrounding metallic shrapnel from prior penetrating trauma. Mild soft tissue prominence about the forefoot. Type I accessory navicular. No acute fracture or dislocation); No surgical intervention as per ortho Pt was advised to walk with right orthotic shoe PT/OT evaluations while minimizing right leg weight bearing Tobacco Abuse Counseling on smoking cessation On nicotine patch CODE STATUS Full Code Disposition Continue monitor in tele Contacts Estrella Escobarard [phone] Subjective Pt was seen and examined Lying in bed with no distress Pt said that he was discharged on 12/05 from rehab He said that he gained significant weight in the last few days This morning before noon pt already drank 5 small cans of soda He said that his mouth feels dry and constantly drinking He asked for a second plate of chicken He said that the redness in his lower extremities much better Denies any chest pain, palpitation, SOB and fever Physical Exam Vital Signs (Past 24 Hours): Last Vital Signs Temp 36.9 C 11/18/18 11:42 Pulse 98 H 11/18/18 11:42 Resp 22 11/18/18 11:42 BP 128/88 11/18/18 11:42 Pulse Ox 94 11/18/18 11:42 Physical Exam: General- No acute distress Head- atraumatic Eyes- PERRL, EOMI, ENT- oropharynx clear Neck- supple, no JVD Lungs- clear to auscultation Heart- regular rhythm; no murmur Abdomen- normal bowel sounds, soft, nontender, obese Extremities- no calf tenderness, +edema in Lower extremities Neuro- alert, oriented x 3; PERRL, EOMI; no facial palsy; no dysarthria Skin- warm & dry (1) CHF exacerbation Heart failure type: unspecified Qualified Code(s): I50.9 - Heart failure, unspecified
[2018-11-18] MEDS ORDERED: POLYETHYLENE (MIRALAX) 17 GM PACK ONE (15:37)
[2018-11-18] MEDS ORDERED: SODIUM CHLORIDE 0.65% NA SOLN 45 ML (OCEAN) NAE PRN (16:23)
[2018-11-18] MEDS: ALBUTEROL HFA 8 GM INHALER INH PRN ×2 (16:49→19:45)
[2018-11-18] MEDS: DOCUSATE SODIUM 100 MG CAP PO PRN (16:49)
[2018-11-18] MEDS: WARFARIN SOD 5 MG TAB PO SCH (16:55)
[2018-11-18] MEDS: cefTRIAXone SODIUM 1,000 MG in DEXTROSE 5% 50 ML IV SCH (18:46)
[2018-11-18] MEDS: CYCLOBENZAPRINE HCL 10 MG TAB PO PRN (18:50)
[2018-11-19] MEDS: TRAMADOL HCL 50 MG TABLET PO PRN ×5 (02:32→23:28)
[2018-11-19] MEDS: CYCLOBENZAPRINE HCL 10 MG TAB PO PRN ×3 (02:33→21:44)
[2018-11-19] MEDS: OXYCODONE HCL IR 5 MG TAB (IMMEDIATE RELEASE) PO PRN ×4 (05:40→23:28)
[2018-11-19 07:10] LABS: Hemoglobin 11.9 g/dL (14.0-18.0); Mean Corpuscular Hgb Conc 33.1 g/dL (32-36); Mean Corpuscular Volume 84.1 fL (80-100); Mean Platelet Volume 10.2 fL (7.4-10.4); Nucleated RBC # (auto) 0.03 K/uL (0-0); Nucleated RBC % (auto) 0.3 %; Platelet Count 240 K/uL (130-400); RDW Coefficient of Variation 16.8 % (11.5-14.5); RDW Standard Deviation 50.8 fL (36.4-46.3); Red Blood Count 4.28 M/uL (4.7-6.1); White Blood Count 9.92 K/uL (4.8-10.8)
[2018-11-19 07:23] LABS: INR 1.8 (0.9-1.1); Prothrombin Time 17.9 Seconds (9.0-12.0)
[2018-11-19 07:45] LABS: BUN Creatinine Ratio 18.1 (10-20); Creatinine Clr Calc Pharmacy 143.7 ml/min; Est GFR (African American) 88.6; Est GFR (Non-African American) 76.4; Potassium 3.3 mmol/L (3.5-5.1)
[2018-11-19] MEDS: SUCRALFATE 1 GM/10 ML UDC PO SCH ×4 (08:39→20:22)
[2018-11-19] MEDS ORDERED: POTASSIUM CHLORIDE 10 MEQ TABCR PO ONE (08:45)
[2018-11-19] MEDS: SPIRONOLACTONE 25 MG TAB PO SCH ×2 (08:46→17:16)
[2018-11-19] MEDS: TAMSULOSIN HCL 0.4 MG CAP PO SCH (08:47)
[2018-11-19] MEDS: GABAPENTIN 300 MG CAP PO SCH ×3 (08:47→20:22)
[2018-11-19] MEDS: PANTOprazole 40 MG TAB PO SCH (08:47)
[2018-11-19] MEDS: MAGNESIUM OXIDE 400 MG TAB PO SCH (08:47)
[2018-11-19] MEDS: MoRPHine SULFATE CR 15 MG TABCR PO SCH ×2 (08:47→20:37)
[2018-11-19] MEDS: POTASSIUM CHLORIDE 10 MEQ TABCR PO SCH (08:47)
[2018-11-19] MEDS: DULOXETINE HCL 60 MG CAP PO SCH (08:48)
[2018-11-19] MEDS: FUROSEMIDE 40 MG in SYRINGE 0 ML IV SCH ×3 (08:48→20:22)
[2018-11-19] MEDS: cloNIDine HCl 0.1 MG TAB PO SCH ×2 (08:48→20:22)
[2018-11-19] MEDS: TIOTROPIUM BROMIDE 5 PUFF/90 MCG INH INH SCH (08:48)
[2018-11-19] MEDS: ALBUTEROL HFA 8 GM INHALER INH PRN (08:54)
[2018-11-19] MEDS: INSULIN ASPART 100 UNITS/ML 3 ML PEN SC SCH ×4 (08:57→21:33)
[2018-11-19] MEDS: Heparin IV Standard *NO* Bolus IV SCH ×2 (09:03→11:19)
[2018-11-19 10:06] LABS: Partial Thromboplastin Ratio 1.4
[2018-11-19] MEDS: NICOTINE 7 MG/24 HR TDSY TD SCH (11:01)
[2018-11-19] MEDS: HEPARIN STANDARD DEXTROSE 25,000 UNITS/500 ML IV SCH ×2 (12:04→22:50)
--- NOTE | 2018-11-19 16:59 | Hospitalist Progress Note ---
Date of Service November 19, 2018 Assessment & Plan (1) CHF exacerbation: Acute Diastolic CHF exacerbation Mostly due to non compliant from fluid intake (Already drank 5 cans of soda before noon) Weight on discharge on 10/27 was 194kg, weight on admission was 204 kg CXR on admission showed mild low lung volumes with minimal bibasilar atelectasis suspected. Was starting on IV lasix 40mg TID, continue lasix Total output 3.5L so far Strict fluid restriction with 1.5L Monitor electrolytes Lower extremities edema/redness Possible cellulitis Elevated Leukocytosis on admission WBC wnl today Continue rocephin IV for now blood cx no growth Pulmonary embolism INR on admission supratherapeutic above 10 Received Vit K yesterday INR 1.8 today Continue coumadin 5 mg daily Starting on heparin drip bridging with coumadin Monitor PT/INR Chronic pain disorder Continue Morphine 15mg BID and oxycodone 10mg On gabapentin 900mg TID stable HTN Continue clonidine BID BP stable Depression with anxiety: On Duloxetine and hydroxyzine Type 2 diabetes mellitus Most recent HbA1c of 7.2 low carbohydrate diabetic diet On sliding scale insulin Monitor BS Consult diabetic education Morbid obesity BMI 61 Counseling on weight loss and diet Right foot injury Xray on 09/16/18 showed Transverse fracture forming about the mid diaphyseal aspect of the third metatarsal is noted with peripheral cortication of the fracture fragments. No bony bridging of the fracture fragments. Surrounding metallic shrapnel from prior penetrating trauma. Mild soft tissue prominence about the forefoot. Type I accessory navicular. No acute fracture or dislocation); No surgical intervention as per ortho Pt was advised to walk with right orthotic shoe PT/OT evaluations while minimizing right leg weight bearing Tobacco Abuse Counseling on smoking cessation On nicotine patch DVT px on heparin drip/Coumadin INR 1.8 CODE STATUS Full Code Disposition Continue monitor in tele Contacts Estrella Seth [phone] Subjective Pt was seen and examined Sitting in chair with no distress Pt said that his breathing feels much better Denies any chest pain, palpitation and fever Physical Exam Vital Signs (Past 24 Hours): Last Vital Signs Temp 36.7 C 11/19/18 15:08 Pulse 110 H 11/19/18 16:00 Resp 18 11/19/18 15:08 BP 125/78 11/19/18 15:08 Pulse Ox 95 11/19/18 15:08 Physical Exam: General- No acute distress Head- atraumatic Eyes- PERRL, EOMI, ENT- oropharynx clear Neck- supple, no JVD Lungs- mild wheezing Heart- regular rhythm; no murmur Abdomen- normal bowel sounds, soft, nontender, obese Extremities- no calf tenderness, +edema in Lower extremities Neuro- alert, oriented x 3; PERRL, EOMI; no facial palsy; no dysarthria Skin- warm & dry (1) CHF exacerbation Heart failure type: unspecified Qualified Code(s): I50.9 - Heart failure, unspecified
[2018-11-19] MEDS: WARFARIN SOD 5 MG TAB PO SCH (17:15)
[2018-11-19] MEDS: cefTRIAXone SODIUM 1,000 MG in DEXTROSE 5% 50 ML IV SCH (17:16)
[2018-11-19] MEDS ORDERED: methylPREDNISolone 20 MG in SYRINGE 0 ML IV ONE (18:00)
[2018-11-19 18:40] LABS: Partial Thromboplastin Ratio 2.2
[2018-11-19 19:01] LABS: Partial Thromboplastin Time 59.2 Seconds (21.0-31.0)
[2018-11-19] MEDS: POLYETHYLENE (MIRALAX) 17 GM PACK PO PRN (21:30)
[2018-11-20] MEDS: OXYCODONE HCL IR 5 MG TAB (IMMEDIATE RELEASE) PO PRN ×3 (06:14→21:48)
[2018-11-20] MEDS: SUCRALFATE 1 GM/10 ML UDC PO SCH ×4 (07:23→20:19)
[2018-11-20] MEDS: ALBUTEROL HFA 8 GM INHALER INH PRN (07:23)
[2018-11-20 07:33] LABS: Hemoglobin 12.4 g/dL (14.0-18.0); Mean Corpuscular Hgb Conc 33.5 g/dL (32-36); Mean Platelet Volume 9.9 fL (7.4-10.4); Nucleated RBC # (auto) 0.04 K/uL (0-0); Nucleated RBC % (auto) 0.2 %; Platelet Count 245 K/uL (130-400); RDW Coefficient of Variation 16.3 % (11.5-14.5); Red Blood Count 4.46 M/uL (4.7-6.1); White Blood Count 14.63 K/uL (4.8-10.8)
[2018-11-20 08:02] LABS: Calcium 9.6 mg/dl (8.5-10.1); Creatinine Clr Calc Pharmacy 160.9 ml/min; Est GFR (African American) 101.5; Est GFR (Non-African American) 87.5; Potassium 3.9 mmol/L (3.5-5.1)
[2018-11-20 08:12] LABS: Partial Thromboplastin Ratio 2.6; Prothrombin Time 19.7 Seconds (9.0-12.0)
[2018-11-20 08:18] LABS: Partial Thromboplastin Time 70.2 Seconds (21.0-31.0)
[2018-11-20] MEDS: TRAMADOL HCL 50 MG TABLET PO PRN ×4 (08:23→23:15)
[2018-11-20] MEDS: POLYETHYLENE (MIRALAX) 17 GM PACK PO PRN (08:23)
[2018-11-20] MEDS: MoRPHine SULFATE CR 15 MG TABCR PO SCH ×2 (08:24→20:19)
[2018-11-20] MEDS: TAMSULOSIN HCL 0.4 MG CAP PO SCH (08:27)
[2018-11-20] MEDS: PANTOprazole 40 MG TAB PO SCH (08:27)
[2018-11-20] MEDS: POTASSIUM CHLORIDE 10 MEQ TABCR PO SCH (08:27)
[2018-11-20] MEDS: TIOTROPIUM BROMIDE 5 PUFF/90 MCG INH INH SCH (08:27)
[2018-11-20] MEDS: MAGNESIUM OXIDE 400 MG TAB PO SCH (08:27)
[2018-11-20] MEDS: NICOTINE 7 MG/24 HR TDSY TD SCH (08:27)
[2018-11-20] MEDS: SPIRONOLACTONE 25 MG TAB PO SCH ×2 (08:27→17:09)
[2018-11-20] MEDS: DULOXETINE HCL 60 MG CAP PO SCH (08:28)
[2018-11-20] MEDS: cloNIDine HCl 0.1 MG TAB PO SCH ×2 (08:28→20:19)
[2018-11-20] MEDS: GABAPENTIN 300 MG CAP PO SCH ×3 (08:28→20:19)
[2018-11-20] MEDS: FUROSEMIDE 40 MG in SYRINGE 0 ML IV SCH ×3 (08:28→20:19)
[2018-11-20] MEDS: INSULIN ASPART 100 UNITS/ML 3 ML PEN SC SCH ×4 (08:34→20:21)
[2018-11-20] MEDS: HEPARIN STANDARD DEXTROSE 25,000 UNITS/500 ML IV SCH (09:56)
[2018-11-20] MEDS: CYCLOBENZAPRINE HCL 10 MG TAB PO PRN ×2 (13:51→21:45)
[2018-11-20] MEDS: WARFARIN SOD 5 MG TAB PO SCH (15:29)
--- NOTE | 2018-11-20 16:47 | Hospitalist Progress Note ---
Date of Service November 20, 2018 Assessment & Plan (1) CHF exacerbation: Acute Diastolic CHF exacerbation Mostly due to non compliant from fluid intake (Already drank 5 cans of soda before noon) Weight on discharge on 10/27 was 194kg, weight on admission was 204 kg CXR on admission showed mild low lung volumes with minimal bibasilar atelectasis suspected. Was starting on IV lasix 40mg TID, continue lasix Diurese about 6L Comntinue strict fluid restriction with 1.5L Monitor electrolytes Lower extremities edema/redness Possible cellulitis Elevated Leukocytosis on admission WBC wnl today Continue rocephin IV for now blood cx no growth Chronic Migraine Headache Pt said that he was told by his neurology to come to the ER to get 1 shot dilaudid when his headache is so bad I explained to him that opiod can cause rebound headache Advised pt to start a maintenance med for the headache such as Riboflavin daily Follow up with neurology as an outpatient Pulmonary embolism INR on admission supratherapeutic above 10 Received Vit K yesterday INR 2 today Continue coumadin 5 mg daily Heparin drip d/c Monitor PT/INR Chronic pain disorder Continue Morphine 15mg BID and oxycodone 10mg On gabapentin 900mg TID stable HTN Continue clonidine BID BP stable Depression with anxiety: On Duloxetine and hydroxyzine Type 2 diabetes mellitus Most recent HbA1c of 7.2 low carbohydrate diabetic diet On sliding scale insulin Monitor BS Consult diabetic education Morbid obesity BMI 61 Counseling on weight loss and diet Right foot injury Xray on 09/16/18 showed Transverse fracture forming about the mid diaphyseal aspect of the third metatarsal is noted with peripheral cortication of the fracture fragments. No bony bridging of the fracture fragments. Surrounding metallic shrapnel from prior penetrating trauma. Mild soft tissue prominence about the forefoot. Type I accessory navicular. No acute fracture or dislocation); No surgical intervention as per ortho Pt was advised to walk with right orthotic shoe PT/OT evaluations while minimizing right leg weight bearing Tobacco Abuse Counseling on smoking cessation On nicotine patch DVT px on heparin drip/Coumadin INR 2 CODE STATUS Full Code Disposition Continue monitor in tele Contacts Estrella Seth [phone] Subjective Pt was seen and examined Lying in bed comfortable with no distress Pt said that he is having severe headache He said that he usually had 1 bad headache once awhile that usually resolves with dilaudid He said that he continues to have SOB Denies any chest pain, palpitation, dizziness and fever Physical Exam Vital Signs (Past 24 Hours): Last Vital Signs Temp 36.7 C 11/20/18 15:23 Pulse 106 H 11/20/18 16:00 Resp 22 11/20/18 15:23 BP 122/82 11/20/18 15:23 Pulse Ox 96 11/20/18 15:23 Physical Exam: General- No acute distress Head- atraumatic Eyes- PERRL, EOMI, ENT- oropharynx clear Neck- supple, no JVD Lungs- No wheezing Heart- regular rhythm; no murmur Abdomen- normal bowel sounds, soft, nontender, obese Extremities- no calf tenderness, +edema in Lower extremities Neuro- alert, oriented x 3; PERRL, EOMI; no facial palsy; no dysarthria Skin- warm & dry (1) CHF exacerbation Heart failure type: unspecified Qualified Code(s): I50.9 - Heart failure, unspecified
[2018-11-20] MEDS ORDERED: HYDROmorphone INJ 1 MG/ML SYRINGE IV ONE (16:53)
[2018-11-20] MEDS ORDERED: ALBUT/IPRATROP 3MG/0.5MG NEB 3 ML VIAL NEB PRN (16:54)
[2018-11-21] MEDS: TRAMADOL HCL 50 MG TABLET PO PRN ×4 (03:12→18:10)
[2018-11-21] MEDS: OXYCODONE HCL IR 5 MG TAB (IMMEDIATE RELEASE) PO PRN ×4 (03:59→22:39)
[2018-11-21 07:22] LABS: Hematocrit (blood only) 36.3 % (42-52); Mean Corpuscular Hgb Conc 33.1 g/dL (32-36); Mean Corpuscular Volume 83.6 fL (80-100); Mean Platelet Volume 9.9 fL (7.4-10.4); Nucleated RBC # (auto) 0.04 K/uL (0-0); Nucleated RBC % (auto) 0.3 %; Platelet Count 230 K/uL (130-400); RDW Coefficient of Variation 16.8 % (11.5-14.5); Red Blood Count 4.34 M/uL (4.7-6.1)
[2018-11-21 07:40] LABS: INR 2.1 (0.9-1.1); Prothrombin Time 20.5 Seconds (9.0-12.0)
[2018-11-21 08:04] LABS: BUN Creatinine Ratio 17.9 (10-20); Calcium 9.4 mg/dl (8.5-10.1); Creatinine Clr Calc Pharmacy 134.5 ml/min; Est GFR (African American) 81.6; Est GFR (Non-African American) 70.4; Potassium 3.4 mmol/L (3.5-5.1)
[2018-11-21] MEDS: MoRPHine SULFATE CR 15 MG TABCR PO SCH ×2 (08:05→20:36)
[2018-11-21] MEDS: FUROSEMIDE 40 MG in SYRINGE 0 ML IV SCH ×2 (08:06→14:53)
[2018-11-21] MEDS: SUCRALFATE 1 GM/10 ML UDC PO SCH ×4 (08:07→20:39)
[2018-11-21] MEDS: INSULIN ASPART 100 UNITS/ML 3 ML PEN SC SCH ×4 (08:07→20:51)
[2018-11-21] MEDS: DULOXETINE HCL 60 MG CAP PO SCH (08:09)
[2018-11-21] MEDS: GABAPENTIN 300 MG CAP PO SCH ×3 (08:09→20:40)
[2018-11-21] MEDS: TAMSULOSIN HCL 0.4 MG CAP PO SCH (08:09)
[2018-11-21] MEDS: NICOTINE 7 MG/24 HR TDSY TD SCH (08:10)
[2018-11-21] MEDS: POTASSIUM CHLORIDE 10 MEQ TABCR PO SCH (08:11)
[2018-11-21] MEDS: cloNIDine HCl 0.1 MG TAB PO SCH ×2 (08:11→20:40)
[2018-11-21] MEDS: PANTOprazole 40 MG TAB PO SCH (08:12)
[2018-11-21] MEDS: SPIRONOLACTONE 25 MG TAB PO SCH ×2 (08:13→16:18)
[2018-11-21] MEDS: MAGNESIUM OXIDE 400 MG TAB PO SCH (08:14)
[2018-11-21] MEDS: ALBUTEROL HFA 8 GM INHALER INH PRN (08:14)
[2018-11-21] MEDS: TIOTROPIUM BROMIDE 5 PUFF/90 MCG INH INH SCH (08:15)
[2018-11-21] MEDS: DOCUSATE SODIUM 100 MG CAP PO PRN (09:56)
[2018-11-21] MEDS: CYCLOBENZAPRINE HCL 10 MG TAB PO PRN ×2 (09:56→21:33)
[2018-11-21] MEDS: WARFARIN SOD 5 MG TAB PO SCH (16:16)
[2018-11-21] MEDS ORDERED: POTASSIUM CHLORIDE 10 MEQ TABCR PO STA (16:23)
--- NOTE | 2018-11-21 17:50 | Hospitalist Progress Note ---
Date of Service November 21, 2018 Assessment & Plan (1) CHF exacerbation: Acute Diastolic CHF exacerbation Mostly due to non compliant from fluid intake (Already drank 5 cans of soda before noon) Weight on discharge on 10/27 was 194kg, weight on admission was 204 kg CXR on admission showed mild low lung volumes with minimal bibasilar atelectasis suspected. Was starting on IV lasix 40mg TID, continue lasix Diurese about 8.5 liter, but his weight still the same Continue strict fluid restriction with 1.8L Continue spironolactone 50mg BID Will consider to increase lasix to 60mg TID Will consult cardiology to help with diuretic management Monitor electrolytes Lower extremities edema/redness Possible cellulitis Elevated Leukocytosis on admission WBC wnl today Continue rocephin IV for now blood cx no growth Chronic Migraine Headache Pt said that he was told by his neurology to come to the ER to get 1 shot dilaudid when his headache is so bad I explained to him that opiod can cause rebound headache Advised pt to start a maintenance med for the headache such as Riboflavin daily Follow up with neurology as an outpatient Pulmonary embolism INR on admission supratherapeutic above 10 Received Vit K yesterday INR 2.1 today Continue coumadin 5 mg daily Monitor PT/INR Chronic pain disorder Continue Morphine 15mg BID and oxycodone 10mg On gabapentin 900mg TID stable HTN BP elevated Continue clonidine BID Will resume spironolactone BP stable Depression with anxiety: On Duloxetine and hydroxyzine Type 2 diabetes mellitus Most recent HbA1c of 7.2 low carbohydrate diabetic diet On sliding scale insulin Monitor BS Consult diabetic education Morbid obesity BMI 61 Counseling on weight loss and diet Right foot injury Xray on 09/16/18 showed Transverse fracture forming about the mid diaphyseal aspect of the third metatarsal is noted with peripheral cortication of the f racture fragments. No bony bridging of the fracture fragments. Surrounding metallic shrapnel from prior penetrating trauma. Mild soft tissue prominence about the forefoot. Type I accessory navicular. No acute fracture or dislocation); No surgical intervention as per ortho Pt was advised to walk with right orthotic shoe PT/OT evaluations while minimizing right leg weight bearing Tobacco Abuse Counseling on smoking cessation On nicotine patch Hypokalemia K replaced monitor BMP DVT px on Coumadin INR 2.1 CODE STATUS Full Code Disposition Continue monitor in tele Contacts Estrella Seth [phone] Subjective Pt was seen and examined Lying in bed with no distress Pt said that we are too strict with the fluid restriction He said that he feels very thirsty He said that he does not get any drink with his food He said that he continues to feel SOB He has been diuresed well, but his weight has not changed Denies any chest pain, palpitation, dizziness and fever Physical Exam Vital Signs (Past 24 Hours): Last Vital Signs Temp 36.5 C 11/21/18 15:29 Pulse 109 H 11/21/18 15:57 Resp 18 11/21/18 15:29 BP 168/77 H 11/21/18 15:29 Pulse Ox 94 11/21/18 15:29 Physical Exam: General- No acute distress Head- atraumatic Eyes- PERRL, EOMI, ENT- oropharynx clear Neck- supple, no JVD Lungs- No wheezing Heart- regular rhythm; no murmur Abdomen- normal bowel sounds, soft, nontender, obese Extremities- no calf tenderness, +edema in Lower extremities Neuro- alert, oriented x 3; PERRL, EOMI; no facial palsy; no dysarthria Skin- warm & dry (1) CHF exacerbation Heart failure type: unspecified Qualified Code(s): I50.9 - Heart failure, unspecified
[2018-11-21] MEDS: FUROSEMIDE 60 MG in SYRINGE 0 ML IV SCH (20:55)
[2018-11-22] MEDS: TRAMADOL HCL 50 MG TABLET PO PRN ×5 (00:42→21:03)
[2018-11-22] MEDS: OXYCODONE HCL IR 5 MG TAB (IMMEDIATE RELEASE) PO PRN ×3 (04:33→18:03)
[2018-11-22 07:58] LABS: Hematocrit (blood only) 37.6 % (42-52); Hemoglobin 12.2 g/dL (14.0-18.0); Mean Corpuscular Hgb Conc 32.4 g/dL (32-36); Mean Corpuscular Volume 85.1 fL (80-100); Mean Platelet Volume 9.5 fL (7.4-10.4); Nucleated RBC # (auto) 0.07 K/uL (0-0); Nucleated RBC % (auto) 0.5 %; Platelet Count 232 K/uL (130-400); RDW Standard Deviation 52.1 fL (36.4-46.3); Red Blood Count 4.42 M/uL (4.7-6.1); White Blood Count 13.19 K/uL (4.8-10.8)
[2018-11-22 08:07] LABS: INR 1.6 (0.9-1.1); Prothrombin Time 16.2 Seconds (9.0-12.0)
[2018-11-22] MEDS: GABAPENTIN 300 MG CAP PO SCH ×3 (08:19→20:57)
[2018-11-22] MEDS: TIOTROPIUM BROMIDE 5 PUFF/90 MCG INH INH SCH (08:19)
[2018-11-22] MEDS: DULOXETINE HCL 60 MG CAP PO SCH (08:19)
[2018-11-22] MEDS: MAGNESIUM OXIDE 400 MG TAB PO SCH (08:19)
[2018-11-22] MEDS: cloNIDine HCl 0.1 MG TAB PO SCH ×2 (08:19→20:56)
[2018-11-22] MEDS: SUCRALFATE 1 GM/10 ML UDC PO SCH ×4 (08:19→20:57)
[2018-11-22] MEDS: POTASSIUM CHLORIDE 10 MEQ TABCR PO SCH (08:19)
[2018-11-22] MEDS: SPIRONOLACTONE 25 MG TAB PO SCH ×2 (08:20→15:53)
[2018-11-22] MEDS: FUROSEMIDE 60 MG in SYRINGE 0 ML IV SCH ×3 (08:20→20:58)
[2018-11-22] MEDS: PANTOprazole 40 MG TAB PO SCH (08:20)
[2018-11-22] MEDS: INSULIN ASPART 100 UNITS/ML 3 ML PEN SC SCH ×4 (08:20→20:59)
[2018-11-22] MEDS: NICOTINE 7 MG/24 HR TDSY TD SCH (08:20)
[2018-11-22] MEDS: CYCLOBENZAPRINE HCL 10 MG TAB PO PRN ×2 (08:23→19:06)
[2018-11-22] MEDS: POLYETHYLENE (MIRALAX) 17 GM PACK PO PRN (08:28)
[2018-11-22] MEDS: MoRPHine SULFATE CR 15 MG TABCR PO SCH ×2 (08:28→20:56)
[2018-11-22] MEDS: DOCUSATE SODIUM 100 MG CAP PO PRN (08:28)
[2018-11-22 08:33] LABS: BUN Creatinine Ratio 21.4 (10-20); Calcium 9.5 mg/dl (8.5-10.1); Creatinine Clr Calc Pharmacy 115.7 ml/min; Est GFR (African American) 68.4; Potassium 3.7 mmol/L (3.5-5.1)
[2018-11-22] MEDS: TAMSULOSIN HCL 0.4 MG CAP PO SCH (10:20)
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
[2018-11-22] MEDS: WARFARIN SOD 5 MG TAB PO SCH (15:54)
--- NOTE | 2018-11-22 18:40 | Hospitalist Progress Note ---
Date of Service November 22, 2018 Assessment & Plan (1) CHF exacerbation: Acute Diastolic CHF exacerbation Mostly due to non compliant from fluid intake (Already drank 5 cans of soda before noon) Weight on discharge on 10/27 was 194kg, weight on admission was 204 kg CXR on admission showed mild low lung volumes with minimal bibasilar atelectasis suspected. Was starting on IV lasix 40mg TID, continue lasix Diurese about 12.7 liter, lost about 4kg Continue strict fluid restriction with 1.8L Continue spironolactone 50mg BID Cardiology on board Continue lasix 60mg TID for now Check BMP in am Lower extremities edema/redness Possible cellulitis Elevated Leukocytosis on admission WBC wnl today Continue rocephin IV for now blood cx no growth Chronic Migraine Headache Pt said that he was told by his neurology to come to the ER to get 1 shot dilaudid when his headache is so bad I explained to him that opiod can cause rebound headache Advised pt to start a maintenance med for the headache such as Riboflavin daily Follow up with neurology as an outpatient Pulmonary embolism INR on admission supratherapeutic above 10 Received Vit K yesterday INR 1.6 today Continue coumadin 5 mg daily Monitor PT/INR Chronic pain disorder Continue Morphine 15mg BID and oxycodone 10mg On gabapentin 900mg TID stable HTN BP elevated Continue clonidine BID Continue spironolactone BP stable Depression with anxiety: On Duloxetine and hydroxyzine Type 2 diabetes mellitus Most recent HbA1c of 7.2 low carbohydrate diabetic diet On sliding scale insulin Monitor BS Consult diabetic education Morbid obesity BMI 61 Counseling on weight loss and diet Right foot injury Xray on 09/16/18 showed Transverse fracture forming about the mid diaphyseal aspect of the third metatarsal is noted with peripheral cortication of the fracture fragments. No bony bridging of the fracture fragments. Surrounding metallic shrapnel from prior penetrating trauma. Mild soft tissue prominence about the forefoot. Type I accessory navicular. No acute fracture or dislocation); No surgical intervention as per ortho Pt was advised to walk with right orthotic shoe PT/OT evaluations while minimizing right leg weight bearing Tobacco Abuse Counseling on smoking cessation On nicotine patch Hypokalemia K replaced monitor BMP DVT px on Coumadin INR 1.6 today Will add on heparin subq until INR therapeutic CODE STATUS Full Code Disposition Continue monitor in tele Contacts Estrella Seth [phone] Subjective Pt was seen seen and examined Lying in bed with no distress Pt continues to complaint about fluid restriction He said that he feels thirsty Denies any chest pain, palpitation, dizziness and SOB Physical Exam Vital Signs (Past 24 Hours): Last Vital Signs Temp 37.0 C 11/22/18 15:41 Pulse 107 H 11/22/18 15:41 Resp 18 11/22/18 15:41 BP 138/84 11/22/18 15:41 Pulse Ox 92 11/22/18 15:41 Physical Exam: General- No acute distress Head- atraumatic Eyes- PERRL, EOMI, ENT- oropharynx clear Neck- supple, no JVD Lungs- No wheezing Heart- regular rhythm; no murmur Abdomen- normal bowel sounds, soft, nontender, obese Extremities- no calf tenderness, +edema in Lower extremities Neuro- alert, oriented x 3; PERRL, EOMI; no facial palsy; no dysarthria Skin- warm & dry (1) CHF exacerbation Heart failure type: unspecified Qualified Code(s): I50.9 - Heart failure, unspecified
[2018-11-22] MEDS: HEPARIN SOD 5,000 UNIT/0.5 ML VIAL SQ SCH (21:42)
[2018-11-23] MEDS: OXYCODONE HCL IR 5 MG TAB (IMMEDIATE RELEASE) PO PRN ×4 (00:21→20:41)
[2018-11-23] MEDS: TRAMADOL HCL 50 MG TABLET PO PRN ×5 (03:40→22:23)
[2018-11-23] MEDS: HEPARIN SOD 5,000 UNIT/0.5 ML VIAL SQ SCH ×2 (05:48→14:09)
[2018-11-23 07:07] LABS: BUN Creatinine Ratio 24.6 (10-20); Calcium 9.3 mg/dl (8.5-10.1); Creatinine Clr Calc Pharmacy 123.8 ml/min; Est GFR (African American) 74.8; Est GFR (Non-African American) 64.5; Potassium 3.4 mmol/L (3.5-5.1)
[2018-11-23] MEDS: MoRPHine SULFATE CR 15 MG TABCR PO SCH ×2 (07:28→21:39)
[2018-11-23] MEDS: POTASSIUM CHLORIDE 10 MEQ TABCR PO SCH (07:29)
[2018-11-23] MEDS: MAGNESIUM OXIDE 400 MG TAB PO SCH (07:30)
[2018-11-23] MEDS: SPIRONOLACTONE 25 MG TAB PO SCH ×2 (07:31→16:40)
[2018-11-23] MEDS: NICOTINE 7 MG/24 HR TDSY TD SCH (07:32)
[2018-11-23] MEDS: DULOXETINE HCL 60 MG CAP PO SCH (07:32)
[2018-11-23] MEDS: cloNIDine HCl 0.1 MG TAB PO SCH ×2 (07:32→21:59)
[2018-11-23] MEDS: TAMSULOSIN HCL 0.4 MG CAP PO SCH (07:32)
[2018-11-23] MEDS: SUCRALFATE 1 GM/10 ML UDC PO SCH ×4 (07:32→21:40)
[2018-11-23] MEDS: PANTOprazole 40 MG TAB PO SCH (07:33)
[2018-11-23] MEDS: GABAPENTIN 300 MG CAP PO SCH ×3 (07:33→21:39)
[2018-11-23] MEDS ORDERED: POTASSIUM CHLORIDE 10 MEQ TABCR PO STA (07:37)
[2018-11-23 08:05] LABS: Magnesium 2.3 mg/dl (1.8-2.4)
[2018-11-23] MEDS: FUROSEMIDE 60 MG in SYRINGE 0 ML IV SCH ×3 (08:29→21:40)
[2018-11-23] MEDS: INSULIN ASPART 100 UNITS/ML 3 ML PEN SC SCH ×4 (08:31→21:42)
[2018-11-23] MEDS: DOCUSATE SODIUM 100 MG CAP PO PRN (10:07)
[2018-11-23] MEDS: POLYETHYLENE (MIRALAX) 17 GM PACK PO PRN (10:08)
[2018-11-23] MEDS: CYCLOBENZAPRINE HCL 10 MG TAB PO PRN ×2 (11:14→18:57)
[2018-11-23] MEDS: TIOTROPIUM BROMIDE 5 PUFF/90 MCG INH INH SCH (11:15)
[2018-11-23] MEDS ORDERED: POTASSIUM CHLORIDE 20 MEQ TABCR PO STA (11:36)
[2018-11-23 13:24] LABS: INR 1.3 (0.9-1.1); Prothrombin Time 12.9 Seconds (9.0-12.0)
--- NOTE | 2018-11-23 13:33 | Cardiology Progress Note ---
Date of Service November 23, 2018 Assessment & Plan (1) Acute diastolic CHF (congestive heart failure), NYHA class 4: Weight is down 12 pounds. Continue IV Lasix twice daily in addition to Aldactone. Follow fluid balance, GFR, electrolytes, daily weights. Sodium (<1.5gm) and fluid restriction advised (1.5 L). (2) Pulmonary embolism: INR subtherapeutic. Recommend intravenous heparin infusion bridging therapy. Continue Coumadin for goal INR of 2.0-3.0 (3) Supratherapeutic INR: INR subtherapeutic today. Coumadin restarted. Dose Coumadin for goal INR of 2.0-3.0. (4) Morbid obesity: (5) HTN (hypertension): Labile with borderline control. Monitor. (6) Atypical chest pain: Subjective Patient seen and examined at the bedside. Continues to diuresis significantly. Fluid balance negative over 3 L over the past 24 hours. Weight is down 12 pounds since admission. Creatinine remains stable. Reports an episode of atypical sharp left upper chest and shoulder discomfort this a.m. ECG unchanged. Review of Systems All systems reviewed & are unremarkable except as noted in HPI & below Physical Exam Vital Signs (Past 24 Hours): Last Vital Signs Temp 36.8 C 11/23/18 11:52 Pulse 107 H 11/23/18 11:52 Resp 18 11/23/18 11:52 BP 160/82 H 11/23/18 11:52 Pulse Ox 93 11/23/18 11:52 Physical Exam: General: NAD, AAO x3, well nourished. obesity. HEENT: Normocephalic. Atraumatic. Conjunctiva pink, no scleral icterus. Neck: No carotid bruits, the carotid upstrokes are brisk. No JVD. No HJR Heart: Regular normal S-1 and S-2 no S-3 or S-4 gallop. No murmurs or rub appreciated. PMI is not displaced. No RV heave. Lungs: Clear bilateral without rales , rhonchi, or wheeze. Abdomen: Normal bowel sounds. Soft. Nontender. No masses or organomegaly. No abdominal bruits. Extremities: 2+ pitting pretibial edema bilateral. No clubbing, or cyanosis. Pulses: radial=2/4, posterior tibial=2/4. Neuro: Cranial nerves grossly intact. No focal motor deficit.
[2018-11-23] MEDS ORDERED: HEPARIN IV BOLUS 10,000 UNITS in SYRINGE 0 ML IV ONE ×2 (14:30→22:15)
[2018-11-23] MEDS: HEPARIN STANDARD DEXTROSE 25,000 UNITS/500 ML IV SCH (14:40)
[2018-11-23] MEDS: WARFARIN SOD 5 MG TAB PO SCH (16:40)
[2018-11-23] MEDS ORDERED: XOPENEX/ATROVENT 0.63mg/0.5MG NEB COMBO NEB SCH (17:15)
--- NOTE | 2018-11-23 17:21 | Hospitalist Progress Note ---
Date of Service November 23, 2018 Assessment & Plan (1) CHF exacerbation: Acute Diastolic CHF exacerbation Mostly due to non compliance from fluid intake (Already drank 5 cans of soda before noon) Weight on discharge on 10/27 was 194kg, weight on admission was 204 kg CXR on admission showed mild low lung volumes with minimal bibasilar atelectasis suspected. Still has significant volume overload continued on Lasix IV TID monitor diuresis Wheezing possible mild COPD exacerbation Prednisone 40mg , then taper Nebs q6h monitor Left Sided Chest pain Atypical EKG non ischemic no hypoxia possible musculosketal etiology Heparin drip started to bridge coumadin given history of PE/DVT Lower extremities edema/redness blood cx no growth likely from CHF no signs of infection at this time Chronic Migraine Headache denies headache Pulmonary embolism INR 1.3 heparin bridge coumadin monitor INR Chronic pain disorder Continue Morphine 15mg BID and oxycodone 10mg On gabapentin 900mg TID appears stable today requesting to increase MS contin to 30mg BID but does not appear to be in pain, not in distress also, will need to avoid increasing narcotics in light of wheezing, may cause respiratory depression HTN BP stable overall Continue clonidine BID Depression with anxiety: On Duloxetine and hydroxyzine Type 2 diabetes mellitus Most recent HbA1c of 7.2 low carbohydrate diabetic diet On sliding scale insulin Morbid obesity BMI 61 Counseling on weight loss and diet Right foot injury Xray on 09/16/18 showed Transverse fracture forming about the mid diaphyseal aspect of the third metatarsal is noted with peripheral cortication of the fracture fragments. No bony bridging of the fracture fragments. Surrounding metallic shrapnel from prior penetrating trauma. Mild soft tissue prominence about the forefoot. Type I accessory navicular. No acute fracture or dislocation); No surgical intervention as per ortho Tobacco Abuse Counseling on smoking cessation On nicotine patch Hypokalemia K replaced monitor BMP DVT px on Coumadin and Heparin drip CODE STATUS Full Code Disposition pending Subjective Follow-up for CHF diastolic type exacerbation Seen resting in bed, comfortable, on 2 L of nasal cannula States atypical left-sided chest pain has resolved Reports mild dyspnea Has occasional dry cough No other symptoms Physical Exam Vital Signs (Past 24 Hours): Last Vital Signs Temp 37.0 C 11/23/18 15:58 Pulse 106 H 11/23/18 15:58 Resp 18 11/23/18 15:58 BP 131/82 11/23/18 15:58 Pulse Ox 92 11/23/18 15:58 Physical Exam: General- oriented x 3, not in distress, speaks in sentences with no effort or accessory muscle use Morbidly obese Eyes- anicteric Neck- no JVD Lungs-positive faint wheeze right side, good bilateral air entry No crackles Heart- normal rate, regular rhythm; no murmurs Abdomen- normal bowel sounds, nondistended, soft, nontender Extremities-grade 2 lower extremity edema, no erythema, no warmth, no calf tenderness Neuro- alert, oriented x 3; no gross focal neurologic deficits Skin- warm & dry Results & Data Laboratory Results Laboratory Results - last 24 hr 11/22/18 11/23/18 11/23/18 20:48 05:54 05:54 PT Cancelled INR Cancelled Sodium 135 L Potassium 3.4 L Chloride 95 L Carbon Dioxide 36 H Anion Gap 4.0 BUN 32 H Creatinine 1.30 Est Cr Clr Drug Dosing 123.8 Est GFR ( Amer) 74.8 Est GFR (Non-Af Amer) 64.5 BUN/Creatinine Ratio 24.6 H Glucose 150 H POC Glucose 159 H Calcium 9.3 Magnesium 2.3 Troponin I 11/23/18 11/23/18 11/23/18 05:54 07:52 11:20 PT INR Sodium Potassium Chloride Carbon Dioxide Anion Gap BUN Creatinine Est Cr Clr Drug Dosing Est GFR ( Amer) Est GFR (Non-Af Amer) BUN/Creatinine Ratio Glucose POC Glucose 145 H 202 H Calcium Magnesium Cancelled Troponin I 11/23/18 11/23/18 11/23/18 13:04 14:04 14:05 PT 12.9 H INR 1.3 H Sodium Potassium Chloride Carbon Dioxide Anion Gap BUN Creatinine Est Cr Clr Drug Dosing Est GFR ( Amer) Est GFR (Non-Af Amer) BUN/Creatinine Ratio Glucose POC Glucose 122 H Calcium Magnesium Troponin I < 0.015 11/23/18 16:33 PT INR Sodium Potassium Chloride Carbon Dioxide Anion Gap BUN Creatinine Est Cr Clr Drug Dosing Est GFR ( Amer) Est GFR (Non-Af Amer) BUN/Creatinine Ratio Glucose POC Glucose 141 H Calcium Magnesium Troponin I (1) CHF exacerbation Heart failure type: unspecified Qualified Code(s): I50.9 - Heart failure, unspecified
[2018-11-23] MEDS: predniSONE 20 MG TAB PO SCH (18:13)
[2018-11-23] MEDS: LEVALBUTEROL HCL 0.63 MG/3 ML NEB NEB SCH (19:58)
[2018-11-23] MEDS: IPRATROPIUM BROMIDE NEB SOLN 0.02% 2.5 ML VIAL INH SCH (19:58)
[2018-11-23 21:13] LABS: Partial Thromboplastin Ratio 1.4; Partial Thromboplastin Time 38.2 Seconds (21.0-31.0)
[2018-11-24] MEDS: CYCLOBENZAPRINE HCL 10 MG TAB PO PRN ×2 (00:57→23:40)
[2018-11-24] MEDS: HEPARIN STANDARD DEXTROSE 25,000 UNITS/500 ML IV SCH ×2 (01:16→13:19)
[2018-11-24] MEDS: IPRATROPIUM BROMIDE NEB SOLN 0.02% 2.5 ML VIAL INH SCH ×4 (02:02→19:23)
[2018-11-24] MEDS: LEVALBUTEROL HCL 0.63 MG/3 ML NEB NEB SCH ×4 (02:02→19:23)
[2018-11-24] MEDS: OXYCODONE HCL IR 5 MG TAB (IMMEDIATE RELEASE) PO PRN ×4 (03:49→22:38)
[2018-11-24 04:40] LABS: Partial Thromboplastin Ratio 3.2
[2018-11-24 04:53] LABS: Partial Thromboplastin Time 86.2 Seconds (21.0-31.0)
[2018-11-24] MEDS: TRAMADOL HCL 50 MG TABLET PO PRN ×5 (05:32→23:40)
[2018-11-24] MEDS: MoRPHine SULFATE CR 15 MG TABCR PO SCH ×2 (08:53→21:06)
[2018-11-24] MEDS: SUCRALFATE 1 GM/10 ML UDC PO SCH ×4 (08:54→21:07)
[2018-11-24] MEDS: FUROSEMIDE 60 MG in SYRINGE 0 ML IV SCH ×3 (08:54→21:06)
[2018-11-24] MEDS: DULOXETINE HCL 60 MG CAP PO SCH (08:55)
[2018-11-24] MEDS: PANTOprazole 40 MG TAB PO SCH (08:56)
[2018-11-24] MEDS: GABAPENTIN 300 MG CAP PO SCH ×3 (08:57→21:07)
[2018-11-24] MEDS: NICOTINE 7 MG/24 HR TDSY TD SCH (08:58)
[2018-11-24] MEDS: predniSONE 20 MG TAB PO SCH (08:59)
[2018-11-24] MEDS: TIOTROPIUM BROMIDE 5 PUFF/90 MCG INH INH SCH (08:59)
[2018-11-24] MEDS: POTASSIUM CHLORIDE 10 MEQ TABCR PO SCH (09:00)
[2018-11-24] MEDS: SPIRONOLACTONE 25 MG TAB PO SCH ×2 (09:01→16:19)
[2018-11-24] MEDS: TAMSULOSIN HCL 0.4 MG CAP PO SCH (09:01)
[2018-11-24] MEDS: MAGNESIUM OXIDE 400 MG TAB PO SCH (09:03)
[2018-11-24] MEDS: INSULIN ASPART 100 UNITS/ML 3 ML PEN SC SCH ×4 (09:16→21:07)
[2018-11-24] MEDS: cloNIDine HCl 0.1 MG TAB PO SCH ×2 (10:13→21:06)
[2018-11-24] MEDS: DOCUSATE SODIUM 100 MG CAP PO PRN (10:13)
[2018-11-24 11:39] LABS: Partial Thromboplastin Ratio 4.6
[2018-11-24 12:06] LABS: Partial Thromboplastin Time 124.3 Seconds (21.0-31.0)
--- NOTE | 2018-11-24 13:29 | Psychiatric Consultation ---
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 Admin: 11/23/18 18:13 Dose: 40 mg Documented by: [id number] Sodium Chloride (Crane Nasal) 1 sprays HANSA PRN PRN PRN Reason: Dryness Stop: 12/18/18 16:22 Last Admin: 11/18/18 16:49 Dose: 1 sprays Documented by: [id number] Spironolactone (Aldactone) 50 mg PO [id number] [facility] Stop: 12/17/18 20:59 Last Admin: 11/24/18 09:01 Dose: 50 mg Documented by: [id number] Admin: 11/23/18 16:40 Dose: 50 mg Documented by: [id number] Admin: 11/23/18 07:31 Dose: 50 mg Documented by: [id number] Admin: 11/22/18 15:53 Dose: 50 mg Documented by: [id number] Admin: 11/22/18 08:20 Dose: 50 mg Documented by: [id number] Admin: 11/21/18 16:18 Dose: 50 mg Documented by: [id number] Admin: 11/21/18 08:13 Dose: 50 mg Documented by: [id number] Admin: 11/20/18 17:09 Dose: 50 mg Documented by: [id number] Admin: 11/20/18 08:27 Dose: 50 mg Documented by: [id number] Admin: 11/19/18 17:16 Dose: 50 mg Documented by: [id number] Admin: 11/19/18 08:46 Dose: 50 mg Documented by: [id number] Admin: 11/18/18 16:57 Dose: 50 mg Documented by: [id number] Admin: 11/18/18 08:14 Dose: 50 mg Documented by: [id number] Admin: 11/17/18 21:49 Dose: 50 mg Documented by: [id number] Sucralfate (Carafate) 1 gm PO ACHS EMPERATRIZ Stop: 12/17/18 20:59 Last Admin: 11/24/18 12:11 Dose: 1 gm Documented by: [id number] Admin: 11/24/18 08:54 Dose: 1 gm Documented by: [id number] Admin: 11/23/18 21:40 Dose: 1 gm Documented by: [id number] Admin: 11/23/18 16:40 Dose: 1 gm Documented by: [id number] Admin: 11/23/18 14:03 Dose: 1 gm Documented by: [id number] Admin: 11/23/18 07:32 Dose: 1 gm Documented by: [id number] Admin: 11/22/18 20:57 Dose: 1 gm Documented by: [id number] Admin: 11/22/18 15:53 Dose: 1 gm Documented by: [id number] Admin: 11/22/18 12:16 Dose: 1 gm Documented by: [id number] Admin: 11/22/18 08:19 Dose: 1 gm Documented by: [id number] Admin: 11/21/18 20:39 Dose: 1 gm Documented by: [id number] Admin: 11/21/18 16:17 Dose: 1 gm Documented by: [id number] Admin: 11/21/18 12:13 Dose: 1 gm Documented by: [id number] Admin: 11/21/18 08:07 Dose: 1 gm Documented by: [id number] Admin: 11/20/18 20:19 Dose: 1 gm Documented by: [id number] Admin: 11/20/18 17:09 Dose: 1 gm Documented by: [id number] Admin: 11/20/18 11:06 Dose: 1 gm Documented by: [id number] Admin: 11/20/18 07:23 Dose: 1 gm Documented by: [id number] Admin: 11/19/18 20:22 Dose: 1 gm Documented by: [id number] Admin: 11/19/18 17:14 Dose: 1 gm Documented by: [id number] Admin: 11/19/18 11:03 Dose: 1 gm Documented by: [id number] Admin: 11/19/18 08:39 Dose: 1 gm Documented by: [id number] Admin: 11/18/18 20:38 Dose: 1 gm Documented by: [id number] Admin: 11/18/18 15:40 Dose: 1 gm Documented by: [id number] Admin: 11/18/18 11:37 Dose: 1 gm Documented by: [id number] Admin: 11/18/18 08:14 Dose: 1 gm Documented by: [id number] Admin: 11/17/18 21:49 Dose: 1 gm Documented by: [id number] Tamsulosin HCl (Flomax) [facility] [place] Stop: 12/18/18 08:59 Last Admin: 11/24/18 09:01 Dose: 0.4 mg Documented by: [id number] Admin: 11/23/18 07:32 Dose: 0.4 mg Documented by: [id number] Admin: 11/22/18 10:20 Dose: 0.4 mg Documented by: [id number] Admin: 11/21/18 08:09 Dose: 0.4 mg Documented by: [id number] Admin: 11/20/18 08:27 Dose: 0.4 mg Documented by: [id number] Admin: 11/19/18 08:47 Dose: 0.4 mg Documented by: [id number] Admin: 11/18/18 08:16 Dose: 0.4 mg Documented by: [id number] Tiotropium [place] (Spiriva) 1 puffs [facility] [place] Stop: 12/18/18 08:59 Last Admin: 11/24/18 08:59 Dose: 1 puffs Documented by: [id number] Admin: 11/23/18 11:15 Dose: 1 puffs Documented by: [id number] Admin: 11/22/18 08:19 Dose: 1 puffs Documented by: [id number] Admin: 11/21/18 08:15 Dose: 1 puffs Documented by: [id number] Admin: 11/20/18 08:27 Dose: 1 puffs Documented by: [id number] Admin: 11/19/18 08:48 Dose: 1 puffs Documented by: [id number] Admin: 11/18/18 08:14 Dose: 1 puffs Documented by: [id number] Tramadol HCl (Ultram) 50 mg PO Q4H PRN PRN Reason: Pain Stop: 12/17/18 20:05 Last Admin: 11/24/18 10:12 Dose: 50 mg Documented by: [id number] Admin: 11/24/18 05:32 Dose: 50 mg Documented by: [id number] Admin: 11/23/18 22:23 Dose: 50 mg Documented by: [id number] Admin: 11/23/18 18:13 Dose: 50 mg Documented by: [id number] Admin: 11/23/18 14:08 Dose: 50 mg Documented by: [id number] Admin: 11/23/18 10:06 Dose: 50 mg Documented by: [id number] Admin: 11/23/18 03:40 Dose: 50 mg Documented by: [id number] Admin: 11/22/18 21:03 Dose: 50 mg Documented by: [id number] Admin: 11/22/18 15:58 Dose: 50 mg Documented by: [id number] Admin: 11/22/18 11:59 Dose: 50 mg Documented by: [id number] Admin: 11/22/18 06:42 Dose: 50 mg Documented by: [id number] Admin: 11/22/18 00:42 Dose: 50 mg Documented by: [id number] Admin: 11/21/18 18:10 Dose: 50 mg Documented by: [id number] Admin: 11/21/18 12:25 Dose: 50 mg Documented by: [id number] Admin: 11/21/18 08:05 Dose: 50 mg Documented by: [id number] Admin: 11/21/18 03:12 Dose: 50 mg Documented by: [id number] Admin: 11/20/18 23:15 Dose: 50 mg Documented by: [id number] Admin: 11/20/18 18:29 Dose: 50 mg Documented by: [id number] Admin: 11/20/18 13:51 Dose: 50 mg Documented by: [id number] Admin: 11/20/18 08:23 Dose: 50 mg Documented by: [id number] Admin: 11/19/18 23:28 Dose: 50 mg Documented by: [id number] Admin: 11/19/18 19:17 Dose: 50 mg Documented by: [id number] Admin: 11/19/18 14:37 Dose: 50 mg Documented by: [id number] Admin: 11/19/18 07:48 Dose: 50 mg Documented by: [id number] Admin: 11/19/18 02:32 Dose: 50 mg Documented by: [id number] Admin: 11/18/18 21:05 Dose: 50 mg Documented by: [id number] Admin: 11/18/18 16:48 Dose: 50 mg Documented by: [id number] Admin: 11/18/18 12:45 Dose: 50 mg Documented by: [id number] Admin: 11/18/18 01:12 Dose: 50 mg Documented by: [id number] Warfarin Sodium (Coumadin) 5 mg PO DAILY@1600 EMPERATRIZ Stop: 12/18/18 15:59 Last Admin: 11/23/18 16:40 Dose: 5 mg Documented by: [id number] Admin: 11/22/18 15:54 Dose: 5 mg Documented by: [id number] Admin: 11/21/18 16:16 Dose: 5 mg Documented by: [id number] Admin: 11/20/18 15:29 Dose: 5 mg Documented by: [id number] Admin: 11/19/18 17:15 Dose: 5 mg Documented by: [id number] Admin: 11/18/18 16:55 Dose: 5 mg Documented by: [id number]
--- NOTE | 2018-11-24 13:39 | Hospitalist Progress Note ---
Date of Service November 24, 2018 delayed entry date jah service as noted above Assessment & Plan (1) CHF exacerbation: Acute Diastolic CHF exacerbation Mostly due to non compliance from fluid intake (Already drank 5 cans of soda before noon) Weight on discharge on 10/27 was 194kg, weight on admission was 204 kg CXR on admission showed mild low lung volumes with minimal bibasilar atelectasis suspected. still has volume overload continued on Lasix IV TID monitor diuresis Wheezing possible mild COPD exacerbation Prednisone 40mg , then taper Nebs q6h improving Left Sided Chest pain Atypical EKG non ischemic no hypoxia possible musculosketal etiology Heparin drip started to bridge coumadin given history of PE/DVT chest pain resolved Lower extremities edema/redness blood cx no growth from CHF, Diastolic type no signs of infection at this time Chronic Migraine Headache denies headache Pulmonary embolism INR 1.2 heparin bridge coumadin monitor INR Chronic pain disorder Continue Morphine 15mg BID and oxycodone 10mg On gabapentin 900mg TID requesting to increase MS contin to 30mg BID but does not appear to be in pain, not in distress also, will need to avoid increasing narcotics in light of wheezing, may cause respiratory depression HTN BP stable overall Continue clonidine BID Depression with anxiety: On Duloxetine and hydroxyzine patient reports increased anxiety Psych consulted recommends increase Vistaril to 50mg PRN Type 2 diabetes mellitus Most recent HbA1c of 7.2 low carbohydrate diabetic diet On sliding scale insulin Morbid obesity BMI 61 Counseling on weight loss and diet Right foot injury Xray on 09/16/18 showed Transverse fracture forming about the mid diaphyseal aspect of the third metatarsal is noted with peripheral cortication of the fracture fragments. No bony bridging of the fracture fragments. Surrounding metallic shrapnel from prior penetrating trauma. Mild soft tissue prominence about the forefoot. Type I accessory navicular. No acute fracture or dislocation); No surgical intervention as per ortho Tobacco Abuse Counseling on smoking cessation On nicotine patch Hypokalemia K replaced monitor BMP DVT px on Coumadin and Heparin drip CODE STATUS Full Code Disposition pending Subjective ff up for CHF exacerbation seen resting in bed, comfortable RN Gera at bedside throughout whole interview states breathing is improving, occasional cough no chest pain was having increased anxiety, Psych consulted no signs of severer anxiety when examined denies other symptoms Physical Exam Vital Signs (Past 24 Hours): Last Vital Signs Temp 36.3 C L 11/24/18 11:23 Pulse 88 11/24/18 11:23 Resp 20 11/24/18 11:23 BP 150/85 H 11/24/18 11:23 Pulse Ox 96 11/24/18 11:23 (1) CHF exacerbation Heart failure type: unspecified Qualified Code(s): I50.9 - Heart failure, unspecified
[2018-11-24 14:26] LABS: Basophils # (auto) 0.04 K/uL (0-0.2); Basophils % (auto) 0.2 %; Eosinophils # (auto) 0.03 K/uL (0-0.5); Eosinophils % (auto) 0.1 %; Hematocrit (blood only) 39.8 % (42-52); Hemoglobin 13.2 g/dL (14.0-18.0); Immature Granulocytes # (auto) 0.47 K/uL (0.00-0.02); Immature Granulocytes % (auto) 2.1 %; Lymphocytes % (auto) 7.6 %; Mean Corpuscular Hgb Conc 33.2 g/dL (32-36); Mean Corpuscular Volume 83.8 fL (80-100); Mean Platelet Volume 10.7 fL (7.4-10.4); Monocytes # (auto) 0.83 K/uL (0.11-0.59); Monocytes % (auto) 3.7 %; Neutrophils # (auto) 19.34 K/uL (1.4-6.5); Neutrophils % (auto) 86.3 %; Platelet Count 255 K/uL (130-400); RDW Coefficient of Variation 16.6 % (11.5-14.5); RDW Standard Deviation 49.7 fL (36.4-46.3); Red Blood Count 4.75 M/uL (4.7-6.1); White Blood Count 22.41 K/uL (4.8-10.8)
[2018-11-24 14:35] LABS: BUN Creatinine Ratio 16.6 (10-20); Calcium 9.3 mg/dl (8.5-10.1); Creatinine Clr Calc Pharmacy 110.5 ml/min; Est GFR (Non-African American) 56.1; Magnesium 2.2 mg/dl (1.8-2.4); Potassium 4.2 mmol/L (3.5-5.1)
[2018-11-24 15:41] LABS: INR 1.2 (0.9-1.1); Prothrombin Time 11.9 Seconds (9.0-12.0)
--- NOTE | 2018-11-24 15:45 | Cardiology Progress Note ---
Date of Service November 24, 2018 Assessment & Plan (1) Acute diastolic CHF (congestive heart failure), NYHA class 4: . Continue IV Lasix twice daily in addition to Aldactone. Follow fluid balance, GFR, electrolytes, daily weights. Sodium (<1.5gm) and fluid restriction advised (1.5 L). (2) Pulmonary embolism: INR subtherapeutic. Recommend intravenous heparin infusion bridging therapy. Continue Coumadin for goal INR of 2.0-3.0 Consider nocturnal oximetry versus formal sleep study in this patient recurrent signs of right heart failure (3) Supratherapeutic INR: INR subtherapeutic today. Coumadin restarted. Dose Coumadin for goal INR of 2.0-3.0. (4) Morbid obesity: (5) HTN (hypertension): Labile with borderline control. Monitor. (6) Atypical chest pain: Subjective Patient seen and examined at the bedside, chart, laboratory studies reviewed. Continues to diuresis significantly. Patient is frustrated regarding recurrence of edema. Notes no other focal complaints Physical Exam Vital Signs (Past 24 Hours): Last Vital Signs Temp 36.8 C 11/24/18 15:00 Pulse 101 H 11/24/18 15:00 Resp 22 11/24/18 15:00 BP 112/77 11/24/18 15:00 Pulse Ox 91 11/24/18 15:00 Constitutional: WD/WN, vitals as above + morbidly obese Eyes: PERRL, conjunctivae normal, anicteric sclerae Neck: + thick neck Respiratory: no audible wheezes Auscultation: + diminished lung sounds Cardiovascular: Rate/Rhythm: regular rate and regular rhythm Extremities: + edema (2-3+) Gastrointestinal (Abdomen): Percussion/Palpation: + abdomen firm (Obese with large panniculus) Results & Data Laboratory Results Laboratory Results - last 24 hr 11/23/18 11/23/18 11/23/18 16:33 18:13 20:14 WBC RBC Hgb Hct MCV MCH MCHC RDW Std Deviation RDW Coeff of Megan Plt Count MPV Immature Gran % (Auto) Neut % (Auto) Lymph % (Auto) [place] % (Auto) Eos % (Auto) Baso % (Auto) Immature Gran # (Auto) Neut # (Auto) Lymph # (Auto) [place] # (Auto) Eos # (Auto) Baso # (Auto) PT INR APTT PTT Ratio Sodium Potassium Chloride Carbon Dioxide Anion Gap BUN Creatinine Est Cr Clr Drug Dosing Est GFR ( Amer) Est GFR (Non-Af Amer) BUN/Creatinine Ratio Glucose POC Glucose 141 H 170 H Calcium Magnesium Troponin I < 0.015 11/23/18 11/24/18 11/24/18 20:38 04:06 07:25 WBC RBC Hgb Hct MCV MCH MCHC RDW Std Deviation RDW Coeff of Megan Plt Count MPV Immature Gran % (Auto) Neut % (Auto) Lymph % (Auto) [place] % (Auto) Eos % (Auto) Baso % (Auto) Immature Gran # (Auto) Neut # (Auto) Lymph # (Auto) [place] # (Auto) Eos # (Auto) Baso # (Auto) PT INR APTT 38.2 H 86.2 H* PTT Ratio 1.4 3.2 Sodium Potassium Chloride Carbon Dioxide Anion Gap BUN Creatinine Est Cr Clr Drug Dosing Est GFR ( Amer) Est GFR (Non-Af Amer) BUN/Creatinine Ratio Glucose POC Glucose 185 H Calcium Magnesium Troponin I 11/24/18 11/24/18 11/24/18 11:01 11:28 13:46 WBC 22.41 H RBC 4.75 Hgb 13.2 L Hct 39.8 L MCV 83.8 MCH 27.8 MCHC 33.2 RDW Std Deviation 49.7 H RDW Coeff of Megan 16.6 H Plt Count 255 MPV 10.7 H Immature Gran % (Auto) 2.1 Neut % (Auto) 86.3 Lymph % (Auto) 7.6 [place] % (Auto) 3.7 Eos % (Auto) 0.1 Baso % (Auto) 0.2 Immature Gran # (Auto) 0.47 H Neut # (Auto) 19.34 H Lymph # (Auto) 1.70 [place] # (Auto) 0.83 H Eos # (Auto) 0.03 Baso # (Auto) 0.04 PT INR APTT 124.3 H* PTT Ratio 4.6 Sodium Potassium Chloride Carbon Dioxide Anion Gap BUN Creatinine Est Cr Clr Drug Dosing Est GFR ( Amer) Est GFR (Non-Af Amer) BUN/Creatinine Ratio Glucose POC Glucose 207 H Calcium Magnesium Troponin I 11/24/18 11/24/18 13:46 15:00 WBC RBC Hgb Hct MCV MCH MCHC RDW Std Deviation RDW Coeff of Megan Plt Count MPV Immature Gran % (Auto) Neut % (Auto) Lymph % (Auto) [place] % (Auto) Eos % (Auto) Baso % (Auto) Immature Gran # (Auto) Neut # (Auto) Lymph # (Auto) [place] # (Auto) Eos # (Auto) Baso # (Auto) PT 11.9 INR 1.2 H APTT PTT Ratio Sodium 133 L Potassium 4.2 D Chloride 95 L Carbon Dioxide 32 Anion Gap 6.0 BUN 24 H Creatinine 1.46 H Est Cr Clr Drug Dosing 110.5 Est GFR ( Amer) 65.0 Est GFR (Non-Af Amer) 56.1 BUN/Creatinine Ratio 16.6 Glucose 171 H POC Glucose Calcium 9.3 Magnesium 2.2 Troponin I
[2018-11-24] MEDS: WARFARIN SOD 5 MG TAB PO SCH (16:18)
[2018-11-24] MEDS ORDERED: WARFARIN SOD 2.5 MG TAB PO SCH (17:00)
[2018-11-24 20:21] LABS: Partial Thromboplastin Ratio 2.4
[2018-11-24 21:45] LABS: Partial Thromboplastin Time 63.9 Seconds (21.0-31.0)
[2018-11-25] MEDS ORDERED: NITROGLYCERIN SL 0.4 MG/TAB TAB SL PRN (00:54)
[2018-11-25] MEDS: ONDANSETRON INJ 2 MG/ML 2 ML VIAL IV PRN ×3 (01:11→21:49)
[2018-11-25] MEDS: IPRATROPIUM BROMIDE NEB SOLN 0.02% 2.5 ML VIAL INH SCH ×4 (02:25→19:28)
[2018-11-25] MEDS: LEVALBUTEROL HCL 0.63 MG/3 ML NEB NEB SCH ×4 (02:26→19:28)
[2018-11-25] MEDS: HEPARIN STANDARD DEXTROSE 25,000 UNITS/500 ML IV SCH ×2 (02:36→12:19)
[2018-11-25] MEDS: OXYCODONE HCL IR 5 MG TAB (IMMEDIATE RELEASE) PO PRN ×3 (06:11→19:38)
[2018-11-25 07:20] LABS: Partial Thromboplastin Ratio 2.2
[2018-11-25 07:30] LABS: Partial Thromboplastin Time 58.7 Seconds (21.0-31.0)
[2018-11-25] MEDS: DULOXETINE HCL 60 MG CAP PO SCH (07:45)
[2018-11-25] MEDS: PANTOprazole 40 MG TAB PO SCH (07:45)
[2018-11-25] MEDS: SUCRALFATE 1 GM/10 ML UDC PO SCH ×4 (07:45→21:14)
[2018-11-25] MEDS: MAGNESIUM OXIDE 400 MG TAB PO SCH (07:45)
[2018-11-25] MEDS: GABAPENTIN 300 MG CAP PO SCH ×3 (07:45→21:14)
[2018-11-25] MEDS: SPIRONOLACTONE 25 MG TAB PO SCH ×2 (07:45→17:34)
[2018-11-25] MEDS: POTASSIUM CHLORIDE 10 MEQ TABCR PO SCH (07:45)
[2018-11-25] MEDS: TAMSULOSIN HCL 0.4 MG CAP PO SCH (07:45)
[2018-11-25] MEDS: predniSONE 20 MG TAB PO SCH (07:45)
[2018-11-25] MEDS: NICOTINE 7 MG/24 HR TDSY TD SCH (07:46)
[2018-11-25] MEDS: INSULIN ASPART 100 UNITS/ML 3 ML PEN SC SCH ×4 (07:46→21:13)
[2018-11-25] MEDS: TIOTROPIUM BROMIDE 5 PUFF/90 MCG INH INH SCH (07:47)
[2018-11-25] MEDS: MoRPHine SULFATE CR 15 MG TABCR PO SCH ×2 (07:57→21:12)
[2018-11-25] MEDS: cloNIDine HCl 0.1 MG TAB PO SCH ×2 (07:57→21:14)
[2018-11-25] MEDS: FUROSEMIDE 60 MG in SYRINGE 0 ML IV SCH ×3 (08:00→21:14)
[2018-11-25 08:05] LABS: BUN Creatinine Ratio 21.1 (10-20); Calcium 9.9 mg/dl (8.5-10.1); Creatinine Clr Calc Pharmacy 114.4 ml/min; Est GFR (African American) 67.8; Est GFR (Non-African American) 58.5; Potassium 3.7 mmol/L (3.5-5.1)
[2018-11-25 14:01] LABS: INR 1.2 (0.9-1.1); Prothrombin Time 11.7 Seconds (9.0-12.0)
--- NOTE | 2018-11-25 15:24 | Cardiology Progress Note ---
Date of Service November 25, 2018 Assessment & Plan (1) Acute diastolic CHF (congestive heart failure), NYHA class 4: Continue IV Lasix twice daily in addition to Aldactone. Follow fluid balance, GFR, electrolytes, daily weights. Sodium (<1.5gm) and fluid restriction advised (1.5 L). (2) Pulmonary embolism: Transitioning heparin to Coumadin (3) Supratherapeutic INR: (4) Morbid obesity: (5) HTN (hypertension): Labile with borderline control. We will increase therapies adding hydralazine 10 mg twice daily and Isordil 10 mill grams p.o. daily help with blood pressure and hopefully afterload reduction (6) Atypical chest pain: Subjective Patient seen and examined at the bedside, chart, laboratory studies reviewed. Continues to diuresis significantly. Notes no other focal complaints. Despite diuresis has continued significant abdominal bloating and lower extremity edema. Blood pressure is elevated Physical Exam Vital Signs (Past 24 Hours): Last Vital Signs Temp 36.8 C 11/25/18 12:00 Pulse 99 H 11/25/18 12:00 Resp 20 11/25/18 12:00 BP 159/100 H 11/25/18 12:00 Pulse Ox 93 11/25/18 12:00 Constitutional: WD/WN, vitals as above + morbidly obese Eyes: PERRL, conjunctivae normal, anicteric sclerae Neck: + thick neck Respiratory: no audible wheezes Auscultation: + diminished lung sounds Cardiovascular: Rate/Rhythm: regular rate and regular rhythm Extremities: + edema (2-3+) Gastrointestinal (Abdomen): Percussion/Palpation: + abdomen firm (Obese with large panniculus)
[2018-11-25] MEDS: WARFARIN SOD 5 MG TAB PO SCH (15:26)
[2018-11-25] MEDS: TRAMADOL HCL 50 MG TABLET PO PRN ×2 (15:33→19:37)
[2018-11-25] MEDS: DOCUSATE SODIUM 100 MG CAP PO PRN ×2 (15:34→21:14)
[2018-11-25] MEDS: CYCLOBENZAPRINE HCL 10 MG TAB PO PRN (18:52)
[2018-11-25] MEDS: HydrALAZINE 10 MG TAB PO SCH (21:14)
[2018-11-25] MEDS: ISOSORBIDE DINITRATE 10 MG TAB PO SCH (21:14)
--- NOTE | 2018-11-25 22:29 | Hospitalist Progress Note ---
Date of Service November 25, 2018 delayed entry date of service as noted above Assessment & Plan (1) CHF exacerbation: Acute Diastolic CHF exacerbation Mostly due to non compliance from fluid intake (Already drank 5 cans of soda before noon) Weight on discharge on 10/27 was 194kg, weight on admission was 204 kg CXR on admission showed mild low lung volumes with minimal bibasilar atelectasis suspected. negative fluid balance, but Still has significant volume overload continued on Lasix IV TID monitor diuresis Wheezing resolved possible mild COPD exacerbation Prednisone 40mg , then taper Nebs q6h monitor Left Sided Chest pain Atypical EKG non ischemic no hypoxia possible musculosketal etiology Heparin drip started to bridge coumadin given history of PE/DVT resolved Lower extremities edema/redness blood cx no growth likely from CHF no signs of infection at this time Chronic Migraine Headache denies headache Pulmonary embolism INR 1.3 heparin bridge + coumadin monitor INR Chronic pain disorder Continue Morphine 15mg BID and oxycodone 10mg On gabapentin 900mg TID stable , no signs of distress from pain requesting to increase MS contin to 30mg BID but does not appear to be in pain, not in distress also, will need to avoid increasing narcotics in light of wheezing, may cause respiratory depression HTN BP stable overall Continue clonidine BID Depression with anxiety: On Duloxetine and hydroxyzine Psych increased Hydroxyzine as patient reporting increased anxiety stable now Type 2 diabetes mellitus Most recent HbA1c of 7.2 low carbohydrate diabetic diet On sliding scale insulin Morbid obesity BMI 61 Counseling on weight loss and diet Right foot injury Xray on 09/16/18 showed Transverse fracture forming about the mid diaphyseal aspect of the third metatarsal is noted with peripheral cortication of the fracture fragments. No bony bridging of the fracture fragments. Surrounding metallic shrapnel from prior penetrating trauma. Mild soft tissue prominence about the forefoot. Type I accessory navicular. No acute fracture or dislocation); No surgical intervention as per ortho Tobacco Abuse Counseling on smoking cessation On nicotine patch Hypokalemia K replaced monitor BMP DVT px on Coumadin and Heparin drip CODE STATUS Full Code Disposition pending Subjective Follow-up for CHF diastolic type exacerbation Seen resting in bed, comfortable ALEXANDER Shipman at the bedside states he feels improved breathing and cough improved no chest pain requesting to drink Coke 3x a day no other symptoms Physical Exam Vital Signs (Past 24 Hours): Last Vital Signs Temp 36.6 C 11/25/18 19:30 Pulse 99 H 11/25/18 19:30 Resp 22 11/25/18 19:30 BP 163/92 H 11/25/18 19:30 Pulse Ox 93 11/25/18 19:30 Physical Exam: General- oriented x 3, not in distress, speaks in sentences with no effort or accessory muscle use Eyes- anicteric Neck- no JVD Lungs-mid rales at the bases, no wheezing Heart- normal rate, regular rhythm; no murmurs Abdomen- normal bowel sounds, nondistended, soft, nontender Extremities- grade 1-2 lower leg edema, no calf tenderness Neuro- alert, oriented x 3; no gross focal neurologic deficits Skin- warm & dry Results & Data Laboratory Results all noted and reviewed (1) CHF exacerbation Heart failure type: unspecified Qualified Code(s): I50.9 - Heart failure, unspecified
[2018-11-26] MEDS: TRAMADOL HCL 50 MG TABLET PO PRN ×5 (00:03→19:50)
[2018-11-26] MEDS: HEPARIN STANDARD DEXTROSE 25,000 UNITS/500 ML IV SCH ×3 (00:10→21:38)
[2018-11-26] MEDS: LEVALBUTEROL HCL 0.63 MG/3 ML NEB NEB SCH ×2 (01:12→07:13)
[2018-11-26] MEDS: IPRATROPIUM BROMIDE NEB SOLN 0.02% 2.5 ML VIAL INH SCH ×2 (01:12→07:13)
[2018-11-26] MEDS: OXYCODONE HCL IR 5 MG TAB (IMMEDIATE RELEASE) PO PRN ×4 (02:01→21:37)
[2018-11-26 08:15] LABS: Partial Thromboplastin Ratio 1.4; Partial Thromboplastin Time 37.9 Seconds (21.0-31.0)
[2018-11-26] MEDS: TIOTROPIUM BROMIDE 5 PUFF/90 MCG INH INH SCH (08:25)
[2018-11-26] MEDS: ISOSORBIDE DINITRATE 10 MG TAB PO SCH ×2 (08:25→21:16)
[2018-11-26] MEDS: GABAPENTIN 300 MG CAP PO SCH ×3 (08:25→21:17)
[2018-11-26] MEDS: MAGNESIUM OXIDE 400 MG TAB PO SCH (08:25)
[2018-11-26] MEDS: DULOXETINE HCL 60 MG CAP PO SCH (08:25)
[2018-11-26] MEDS: TAMSULOSIN HCL 0.4 MG CAP PO SCH (08:25)
[2018-11-26] MEDS: POTASSIUM CHLORIDE 10 MEQ TABCR PO SCH (08:25)
[2018-11-26] MEDS: INSULIN ASPART 100 UNITS/ML 3 ML PEN SC SCH ×4 (08:26→21:25)
[2018-11-26] MEDS: PANTOprazole 40 MG TAB PO SCH (08:26)
[2018-11-26] MEDS: SUCRALFATE 1 GM/10 ML UDC PO SCH ×4 (08:26→21:16)
[2018-11-26] MEDS: HydrALAZINE 10 MG TAB PO SCH ×2 (08:26→21:15)
[2018-11-26] MEDS: predniSONE 20 MG TAB PO SCH (08:26)
[2018-11-26] MEDS: FUROSEMIDE 60 MG in SYRINGE 0 ML IV SCH ×3 (08:26→21:17)
[2018-11-26] MEDS: NICOTINE 7 MG/24 HR TDSY TD SCH (08:26)
[2018-11-26] MEDS: SPIRONOLACTONE 25 MG TAB PO SCH ×2 (08:26→17:13)
[2018-11-26] MEDS: MoRPHine SULFATE CR 15 MG TABCR PO SCH ×2 (08:33→21:19)
[2018-11-26] MEDS: cloNIDine HCl 0.1 MG TAB PO SCH ×2 (08:33→21:37)
[2018-11-26] MEDS ORDERED: IPRATROPIUM BROMIDE NEB SOLN 0.02% 2.5 ML VIAL INH PRN (09:19)
[2018-11-26] MEDS ORDERED: LEVALBUTEROL HCL 0.63 MG/3 ML NEB NEB PRN (09:19)
[2018-11-26 09:56] LABS: BUN Creatinine Ratio 24.5 (10-20); Calcium 10.2 mg/dl (8.5-10.1); Creatinine Clr Calc Pharmacy 120.8 ml/min; Est GFR (African American) 74.1; Est GFR (Non-African American) 63.9; Potassium 3.8 mmol/L (3.5-5.1)
[2018-11-26] MEDS ORDERED: HEPARIN IV BOLUS 10,000 UNITS in SYRINGE 0 ML IV ONE (10:15)
[2018-11-26] MEDS: ONDANSETRON INJ 2 MG/ML 2 ML VIAL IV PRN ×2 (11:17→19:51)
--- NOTE | 2018-11-26 12:24 | Cardiology Progress Note ---
Date of Service November 26, 2018 Assessment & Plan (1) Acute diastolic CHF (congestive heart failure), NYHA class 4: Continue IV Lasix twice daily in addition to Aldactone. Follow fluid balance, GFR, electrolytes, daily weights. Sodium (<1.5gm) and fluid restriction advised Patient continues to have brisk diuresis (2) Pulmonary embolism: Transitioning heparin to Coumadin (3) Supratherapeutic INR: INR subtherapeutic today. Coumadin restarted. Dose Coumadin for goal INR of 2.0-3.0. (4) Morbid obesity: (5) HTN (hypertension): Labile with borderline control. We will increase therapies adding hydralazine 10 mg twice daily and Isordil 10 mill grams p.o. daily help with blood pressure and hopefully afterload reduction Add low-dose Toprol 12.5 g twice per day for further heart rate and blood pressure control (6) Atypical chest pain: Serial EKGs without abnormality past negative stress testing for similar complaint, possible GI in origin. Recommend tapering of prednisone Subjective Patient seen and examined at the bedside, chart, laboratory studies reviewed. Continues to diuresis significantly. Complains of occasional sharp substernal chest discomfort possible relation to 2 meals. No shortness of breath orthopnea above baseline Blood pressure is better controlled Physical Exam Vital Signs (Past 24 Hours): Last Vital Signs Temp 36.8 C 11/26/18 12:14 Pulse 97 H 11/26/18 12:14 Resp 20 11/26/18 12:14 BP 157/82 H 11/26/18 12:14 Pulse Ox 92 11/26/18 12:14 Constitutional: WD/WN, vitals as above + morbidly obese Eyes: PERRL, conjunctivae normal, anicteric sclerae Neck: + thick neck Respiratory: no audible wheezes Auscultation: + diminished lung sounds Cardiovascular: Rate/Rhythm: regular rate and regular rhythm Extremities: + edema (2+ persistent edema though with mild contraction) Gastrointestinal (Abdomen): Percussion/Palpation: + abdomen firm (Obese with large panniculus) Results & Data Laboratory Results Laboratory Results - last 24 hr 11/25/18 11/25/18 11/25/18 06:52 16:31 20:02 PT 11.7 INR 1.2 H APTT PTT Ratio Sodium Potassium Chloride Carbon Dioxide Anion Gap BUN Creatinine Est Cr Clr Drug Dosing Est GFR ( Amer) Est GFR (Non-Af Amer) BUN/Creatinine Ratio Glucose POC Glucose 184 H 187 H Calcium 11/26/18 11/26/18 11/26/18 07:38 07:45 07:45 PT INR APTT 37.9 H PTT Ratio 1.4 Sodium 134 L Potassium 3.8 Chloride 92 L Carbon Dioxide 36 H Anion Gap 5.0 BUN 32 H Creatinine 1.31 Est Cr Clr Drug Dosing 120.8 Est GFR ( Amer) 74.1 Est GFR (Non-Af Amer) 63.9 BUN/Creatinine Ratio 24.5 H Glucose 137 H POC Glucose 153 H Calcium 10.2 H 11/26/18 11:45 PT INR APTT PTT Ratio Sodium Potassium Chloride Carbon Dioxide Anion Gap BUN Creatinine Est Cr Clr Drug Dosing Est GFR ( Amer) Est GFR (Non-Af Amer) BUN/Creatinine Ratio Glucose POC Glucose 166 H Calcium Diagnostic Findings EKG 26-NOV-2018 08:08:55 [facility] Normal sinus rhythm Nonspecific ST abnormality Abnormal ECG When compared with ECG of 25-NOV-2018 00:37, No significant change was found
[2018-11-26] MEDS: CYCLOBENZAPRINE HCL 10 MG TAB PO PRN (13:12)
--- NOTE | 2018-11-26 13:52 | Hospitalist Progress Note ---
Date of Service November 26, 2018 Assessment & Plan (1) CHF exacerbation: Acute Diastolic CHF exacerbation Mostly due to non compliance from fluid intake (Already drank 5 cans of soda before noon) Weight on discharge on 10/27 was 194kg, weight on admission was 204 kg CXR on admission showed mild low lung volumes with minimal bibasilar atelectasis suspected. clinically imporved on Aldactatone appreciate input form cardiology pt will be continued with low Na diet /fluid restriction (2) Acute diastolic CHF (congestive heart failure), NYHA class 4: (3) Shortness of breath: resolved possible mild COPD exacerbation with CHF decompensation Prednisone 40mg , then taper Nebs q6h monitor (4) Supratherapeutic INR: (5) Pulmonary embolism: coumadin was on hold for elevated INR on IV heparin bridge /coumadin for INR < 2 (6) Hypoventilation associated with obesity: 02 at night (7) Tobacco abuse disorder: ordered for Nicotine patch (8) Diastolic CHF, acute: presented with vol overload management as outlined above (9) Morbid obesity: BMI 58.6 very poorly compliant counselling provided for wt reduction and diet /exercise (10) HTN (hypertension): Labile with borderline control. per cardiology ordered : hydralazine 10 mg twice daily and Isordil 10 mill grams p.o. daily help with blood pressure and hopefully afterload reduction Added low-dose Toprol 12.5 g twice per day for further heart rate and blood pressure control (11) Chronic pain disorder: hx of narcotic pain medication dependency /abuse Continue Morphine 15mg BID and oxycodone 10mg PRN On gabapentin 900mg TID stable , no signs of distress from pain requesting to increase pain medications but does not appear to be in pain, not in distress also, will need to avoid increasing narcotics in light of wheezing, may cause respiratory depression complains of Left Sided Chest pain Atypical EKG non ischemic no hypoxia will limit ordering additional pain meds FULL CODE DVT PROPHYLASIX : iv heparin /Coumadin DIPSOTION : Rererral made to rehab Subjective Complains of chest heaviness earlier this morning EKG is negative, evaluated by cardiology, possible secondary to acid reflux Patient continues to report of chest heaviness, later says that he thinks he is getting an Anxiety attack Got Vistaril earlier, feels no benefit, requesting for Ativan pt does not appear to be anxious , talking calmly , stable vitals Patient is counseled multiple times, is already on multiple narcotic medication including MS Contin/OxyIR, tramadol Addition of Ativan could lead to sedative effect will try PRN benadryl Physical Exam Vital Signs (Past 24 Hours): Last Vital Signs Temp 36.8 C 11/26/18 12:14 Pulse 97 H 11/26/18 12:14 Resp 20 11/26/18 12:14 BP 157/82 H 11/26/18 12:14 Pulse Ox 92 11/26/18 12:14 Constitutional: Obese Eyes: PERRL, conjunctivae normal, anicteric sclerae ENMT: external ear and nose normal, oropharynx normal Neck: trachea midline, no thyromegaly Respiratory: no respiratory distress and no cough Auscultation: + diminished lung sounds; no crackles, no rales and no wheezes Cardiovascular: Rate/Rhythm: regular rate and regular rhythm Trace pedal edema Gastrointestinal (Abdomen): Percussion/Palpation: abdomen soft; abdomen nontender Distended Neurologic: PERRL, EOMI, accommodation nl, no face palsy, no dysarthria Psychiatric: A+Ox3, euthymic affect (1) CHF exacerbation Heart failure type: unspecified Qualified Code(s): I50.9 - Heart failure, unspecified
[2018-11-26] MEDS: WARFARIN SOD 5 MG TAB PO SCH (15:39)
[2018-11-26] MEDS ORDERED: WARFARIN SOD 5 MG TAB PO ONE (17:30)
[2018-11-26 18:34] LABS: Partial Thromboplastin Ratio 2.3
[2018-11-26] MEDS ORDERED: LORazepam 0.5 MG TAB PO STA (19:57)
[2018-11-26] MEDS ORDERED: LORazepam 0.5 MG/1 ML VIAL IV STA (20:14)
[2018-11-26] MEDS: DOCUSATE SODIUM 100 MG CAP PO PRN (21:09)
[2018-11-26] MEDS: POLYETHYLENE (MIRALAX) 17 GM PACK PO PRN (21:10)
[2018-11-26] MEDS: METOPROLOL SUCC 25MG EXT REL TAB PO SCH (21:15)
[2018-11-27] MEDS: TRAMADOL HCL 50 MG TABLET PO PRN ×4 (01:05→21:32)
[2018-11-27] MEDS: CYCLOBENZAPRINE HCL 10 MG TAB PO PRN ×3 (01:51→23:40)
[2018-11-27] MEDS: OXYCODONE HCL IR 5 MG TAB (IMMEDIATE RELEASE) PO PRN ×3 (06:41→19:53)
[2018-11-27 08:00] LABS: BUN Creatinine Ratio 23.2 (10-20); Calcium 10.4 mg/dl (8.5-10.1); Creatinine Clr Calc Pharmacy 110.6 ml/min; Est GFR (African American) 68.4; Potassium 3.7 mmol/L (3.5-5.1)
[2018-11-27] MEDS: HEPARIN STANDARD DEXTROSE 25,000 UNITS/500 ML IV SCH ×2 (08:03→16:33)
[2018-11-27] MEDS: INSULIN ASPART 100 UNITS/ML 3 ML PEN SC SCH ×4 (08:03→21:46)
[2018-11-27] MEDS: SUCRALFATE 1 GM/10 ML UDC PO SCH ×4 (08:04→21:30)
[2018-11-27] MEDS: MoRPHine SULFATE CR 15 MG TABCR PO SCH ×2 (08:04→21:31)
[2018-11-27] MEDS: cloNIDine HCl 0.1 MG TAB PO SCH ×2 (08:04→21:30)
[2018-11-27] MEDS: HydrALAZINE 10 MG TAB PO SCH ×2 (08:05→21:30)
[2018-11-27] MEDS: FUROSEMIDE 60 MG in SYRINGE 0 ML IV SCH ×3 (08:05→21:30)
[2018-11-27] MEDS: predniSONE 20 MG TAB PO SCH (08:06)
[2018-11-27] MEDS: MAGNESIUM OXIDE 400 MG TAB PO SCH (08:06)
[2018-11-27] MEDS: TAMSULOSIN HCL 0.4 MG CAP PO SCH (08:06)
[2018-11-27] MEDS: ISOSORBIDE DINITRATE 10 MG TAB PO SCH ×2 (08:06→21:29)
[2018-11-27] MEDS: METOPROLOL SUCC 25MG EXT REL TAB PO SCH ×2 (08:06→21:30)
[2018-11-27] MEDS: SPIRONOLACTONE 25 MG TAB PO SCH ×2 (08:06→16:30)
[2018-11-27] MEDS: PANTOprazole 40 MG TAB PO SCH (08:07)
[2018-11-27] MEDS: POTASSIUM CHLORIDE 10 MEQ TABCR PO SCH (08:07)
[2018-11-27] MEDS: NICOTINE 7 MG/24 HR TDSY TD SCH (08:07)
[2018-11-27] MEDS: GABAPENTIN 300 MG CAP PO SCH ×3 (08:08→21:29)
[2018-11-27] MEDS: DULOXETINE HCL 60 MG CAP PO SCH (08:08)
[2018-11-27] MEDS: TIOTROPIUM BROMIDE 5 PUFF/90 MCG INH INH SCH (08:08)
[2018-11-27] MEDS: ONDANSETRON INJ 2 MG/ML 2 ML VIAL IV PRN ×2 (08:13→16:27)
[2018-11-27 08:18] LABS: Partial Thromboplastin Ratio 1.3; Partial Thromboplastin Time 34.2 Seconds (21.0-31.0); Prothrombin Time 10.7 Seconds (9.0-12.0)
[2018-11-27] MEDS ORDERED: HEPARIN IV BOLUS 10,000 UNITS in SYRINGE 0 ML IV ONE (09:00)
[2018-11-27 15:51] LABS: Partial Thromboplastin Ratio 1.6; Partial Thromboplastin Time 44.6 Seconds (21.0-31.0)
[2018-11-27] MEDS ORDERED: WARFARIN SOD 5 MG TAB PO SCH (16:00)
[2018-11-27] MEDS ORDERED: HEPARIN IV BOLUS 5,000 UNITS in SYRINGE 0 ML IV ONE (16:17)
--- NOTE | 2018-11-27 16:56 | Hospitalist Progress Note ---
Date of Service November 27, 2018 Assessment & Plan (1) CHF exacerbation: Acute Diastolic CHF exacerbation Mostly due to non compliance from fluid intake (Already drank 5 cans of soda before noon) Weight on discharge on 10/27 was 194kg, weight on admission was 204 kg CXR on admission showed mild low lung volumes with minimal bibasilar atelectasis suspected. clinically imporved on Lasix 60 mg IV TID on Aldactatone appreciate input form cardiology pt will be continued with low Na diet /fluid restriction (2) Acute diastolic CHF (congestive heart failure), NYHA class 4: (3) Shortness of breath: resolved possible mild COPD exacerbation with CHF decompensation Prednisone 40mg , then taper Nebs q6h PRN monitor (4) Supratherapeutic INR: presented on INR > 10 Coumadin was kept on hold INR became 1.2 coumadin resumed with IV heparin bridge (5) Pulmonary embolism: coumadin was on hold for elevated INR on IV heparin bridge /coumadin for INR < 2 (6) Hypoventilation associated with obesity: 02 at night (7) Tobacco abuse disorder: ordered for Nicotine patch (8) Diastolic CHF, acute: presented with vol overload management as outlined above (9) Morbid obesity: BMI 58.6 very poorly compliant counselling provided for wt reduction and diet /exercise (10) HTN (hypertension): Labile with borderline control. per cardiology ordered : hydralazine 10 mg twice daily and Isordil 10 mill grams p.o. daily help with blood pressure and hopefully afterload reduction Added low-dose Toprol 12.5 g twice per day for further heart rate and blood pressure control (11) Chronic pain disorder: hx of narcotic pain medication dependency /abuse Continue Morphine 15mg BID and oxycodone 10mg PRN On gabapentin 900mg TID stable , no signs of distress from pain requesting to increase pain medications but does not appear to be in pain, not in distress also, will need to avoid increasing narcotics in light of wheezing, may cause respiratory depression complains of Left Sided Chest pain Atypical EKG non ischemic no hypoxia will limit ordering additional pain meds FULL CODE DVT PROPHYLASIX : iv heparin /Coumadin DIPSOTION : Rererral made to rehab possible tx to [facility] tomorrow Subjective pt continues to request for Ativan as he feels having an anxiety attack no sign of anxiety or distress noted pt is counselled repeatedly as he is already on 3 nactotic pain medications pt wants to know about going to rehab /[facility] feels he will do better there and wants to go there on wednesday if possible Physical Exam Vital Signs (Past 24 Hours): Last Vital Signs Temp 36.6 C 11/27/18 15:19 Pulse 88 11/27/18 15:19 Resp 18 11/27/18 15:19 BP 114/76 11/27/18 15:19 Pulse Ox 97 11/27/18 15:19 Eyes: PERRL, conjunctivae normal, anicteric sclerae ENMT: external ear and nose normal, oropharynx normal Neck: trachea midline, no thyromegaly Respiratory: no respiratory distress and no cough Auscultation: + diminished lung sounds; no crackles, no rales and no wheezes Cardiovascular: Rate/Rhythm: regular rate and regular rhythm Gastrointestinal (Abdomen): Percussion/Palpation: abdomen soft; abdomen nontender Neurologic: PERRL, EOMI, accommodation nl, no face palsy, no dysarthria Psychiatric: A+Ox3, euthymic affect (1) CHF exacerbation Heart failure type: unspecified Qualified Code(s): I50.9 - Heart failure, unspecified
[2018-11-27] MEDS ORDERED: LORazepam 0.5 MG TAB PO STA (21:17)
[2018-11-27] MEDS ORDERED: DOCUSATE SODIUM/SENNA 50/8.6MG TAB PO STA (21:17)
[2018-11-27] MEDS ORDERED: BISACODYL 5 MG TABEC PO ONE (21:29)
[2018-11-27] MEDS: DOCUSATE SODIUM 100 MG CAP PO PRN (21:45)
[2018-11-27] MEDS: POLYETHYLENE (MIRALAX) 17 GM PACK PO PRN (21:48)
[2018-11-27 23:15] LABS: Partial Thromboplastin Ratio 3.6
[2018-11-27 23:37] LABS: Partial Thromboplastin Time 98.9 Seconds (21.0-31.0)
[2018-11-28] MEDS: HEPARIN STANDARD DEXTROSE 25,000 UNITS/500 ML IV SCH ×2 (00:39→09:23)
[2018-11-28] MEDS: TRAMADOL HCL 50 MG TABLET PO PRN ×5 (01:18→19:35)
[2018-11-28] MEDS: ONDANSETRON INJ 2 MG/ML 2 ML VIAL IV PRN ×3 (02:30→20:54)
[2018-11-28] MEDS: OXYCODONE HCL IR 5 MG TAB (IMMEDIATE RELEASE) PO PRN ×4 (02:30→22:00)
[2018-11-28 07:01] LABS: INR 1.1 (0.9-1.1); Partial Thromboplastin Ratio 2.9; Prothrombin Time 11.5 Seconds (9.0-12.0)
[2018-11-28 07:11] LABS: Partial Thromboplastin Time 77.9 Seconds (21.0-31.0)
[2018-11-28] MEDS: SUCRALFATE 1 GM/10 ML UDC PO SCH ×4 (09:14→20:42)
[2018-11-28] MEDS: FUROSEMIDE 60 MG in SYRINGE 0 ML IV SCH (09:14)
[2018-11-28] MEDS: MoRPHine SULFATE CR 15 MG TABCR PO SCH ×2 (09:14→20:42)
[2018-11-28] MEDS: cloNIDine HCl 0.1 MG TAB PO SCH ×2 (09:14→20:44)
[2018-11-28] MEDS: SPIRONOLACTONE 25 MG TAB PO SCH ×2 (09:15→17:06)
[2018-11-28] MEDS: POTASSIUM CHLORIDE 10 MEQ TABCR PO SCH (09:15)
[2018-11-28] MEDS: MAGNESIUM OXIDE 400 MG TAB PO SCH (09:15)
[2018-11-28] MEDS: TAMSULOSIN HCL 0.4 MG CAP PO SCH (09:15)
[2018-11-28] MEDS: HydrALAZINE 10 MG TAB PO SCH ×2 (09:15→20:42)
[2018-11-28] MEDS: ISOSORBIDE DINITRATE 10 MG TAB PO SCH ×2 (09:15→20:43)
[2018-11-28] MEDS: predniSONE 20 MG TAB PO SCH (09:16)
[2018-11-28] MEDS: DULOXETINE HCL 60 MG CAP PO SCH (09:16)
[2018-11-28] MEDS: PANTOprazole 40 MG TAB PO SCH (09:16)
[2018-11-28] MEDS: NICOTINE 7 MG/24 HR TDSY TD SCH (09:16)
[2018-11-28] MEDS: GABAPENTIN 300 MG CAP PO SCH ×3 (09:16→20:44)
[2018-11-28] MEDS: INSULIN ASPART 100 UNITS/ML 3 ML PEN SC SCH ×4 (09:22→20:53)
[2018-11-28] MEDS: METOPROLOL SUCC 25MG EXT REL TAB PO SCH ×2 (09:56→20:45)
[2018-11-28] MEDS: ALBUTEROL HFA 8 GM INHALER INH PRN (09:56)
[2018-11-28] MEDS: TIOTROPIUM BROMIDE 5 PUFF/90 MCG INH INH SCH (09:56)
[2018-11-28] MEDS: CYCLOBENZAPRINE HCL 10 MG TAB PO PRN ×2 (13:19→22:00)
[2018-11-28] MEDS: FUROSEMIDE 20 MG TAB PO SCH ×2 (13:27→20:43)
[2018-11-28 14:34] LABS: Partial Thromboplastin Time 107.6 Seconds (21.0-31.0)
--- NOTE | 2018-11-28 15:26 | Hospitalist Progress Note ---
Date of Service November 28, 2018 Assessment & Plan (1) CHF exacerbation: Acute Diastolic CHF exacerbation Mostly due to non compliance from fluid intake (Already drank 5 cans of soda before noon) Weight on discharge on 10/27 was 194kg, weight on admission was 204 kg CXR on admission showed mild low lung volumes with minimal bibasilar atelectasis suspected. clinically imporved on Lasix 60 mg IV TID on Aldactatone appreciate input form cardiology pt will be continued with low Na diet /fluid restriction (2) Acute diastolic CHF (congestive heart failure), NYHA class 4: (3) Shortness of breath: resolved possible mild COPD exacerbation with CHF decompensation Prednisone 40mg , then taper Nebs q6h PRN monitor (4) Supratherapeutic INR: presented on INR > 10 Coumadin was kept on hold INR became 1.2 coumadin resumed with IV heparin bridge (5) Pulmonary embolism: coumadin was on hold for elevated INR on IV heparin bridge /coumadin for INR < 2 (6) Hypoventilation associated with obesity: 02 at night (7) Tobacco abuse disorder: ordered for Nicotine patch (8) Diastolic CHF, acute: presented with vol overload management as outlined above (9) Morbid obesity: BMI 58.6 very poorly compliant counselling provided for wt reduction and diet /exercise (10) HTN (hypertension): Labile with borderline control. per cardiology ordered : hydralazine 10 mg twice daily and Isordil 10 mill grams p.o. daily help with blood pressure and hopefully afterload reduction Added low-dose Toprol 12.5 g twice per day for further heart rate and blood pressure control (11) Chronic pain disorder: hx of narcotic pain medication dependency /abuse Continue Morphine 15mg BID and oxycodone 10mg PRN On gabapentin 900mg TID stable , no signs of distress from pain requesting to increase pain medications but does not appear to be in pain, not in distress also, will need to avoid increasing narcotics in light of wheezing, may cause respiratory depression complains of Left Sided Chest pain Atypical EKG non ischemic no hypoxia will limit ordering additional pain meds FULL CODE DVT PROPHYLASIX : iv heparin /Coumadin DIPSOTION : Rererral made to rehab possible tx to [facility] tomorrow Subjective very angry that he is asked to be discharged to [facility] wants to have one more day to get settled down Physical Exam Vital Signs (Past 24 Hours): Last Vital Signs Temp 36.8 C 11/28/18 15:10 Pulse 100 H 11/28/18 15:10 Resp 22 11/28/18 15:10 BP 126/75 11/28/18 15:10 Pulse Ox 93 11/28/18 15:10 Eyes: PERRL, conjunctivae normal, anicteric sclerae ENMT: external ear and nose normal, oropharynx normal Neck: trachea midline, no thyromegaly Respiratory: no respiratory distress and no cough Auscultation: + diminished lung sounds; no crackles, no rales and no wheezes Cardiovascular: Rate/Rhythm: regular rate and regular rhythm Gastrointestinal (Abdomen): Percussion/Palpation: abdomen soft; abdomen nontender Neurologic: PERRL, EOMI, accommodation nl, no face palsy, no dysarthria Psychiatric: A+Ox3, euthymic affect (1) CHF exacerbation Heart failure type: unspecified Qualified Code(s): I50.9 - Heart failure, unspecified
[2018-11-28] MEDS ORDERED: ENOXAPARIN 1 MG/KG SQ SCH (15:30)
[2018-11-28] MEDS: WARFARIN SOD 6 MG TAB PO SCH (17:05)
[2018-11-28] MEDS: ENOXAPARIN INJ 40 MG/0.4 ML SYR SQ SCH (17:07)
[2018-11-28] MEDS: ENOXAPARIN 150 MG/ML SYR SQ SCH (17:08)
[2018-11-28] MEDS: POLYETHYLENE (MIRALAX) 17 GM PACK PO PRN (19:36)
[2018-11-28] MEDS: DOCUSATE SODIUM 100 MG CAP PO PRN (20:42)
[2018-11-29] MEDS: TRAMADOL HCL 50 MG TABLET PO PRN ×5 (01:56→20:33)
[2018-11-29] MEDS: OXYCODONE HCL IR 5 MG TAB (IMMEDIATE RELEASE) PO PRN ×4 (04:03→23:32)
[2018-11-29] MEDS: ONDANSETRON INJ 2 MG/ML 2 ML VIAL IV PRN ×4 (04:04→23:35)
[2018-11-29] MEDS: ENOXAPARIN 150 MG/ML SYR SQ SCH ×2 (05:42→17:32)
[2018-11-29] MEDS: ENOXAPARIN INJ 40 MG/0.4 ML SYR SQ SCH ×2 (05:43→17:31)
[2018-11-29 08:10] LABS: Mean Corpuscular Hgb Conc 33.5 g/dL (32-36); Mean Platelet Volume 10.3 fL (7.4-10.4); Platelet Count 223 K/uL (130-400)
[2018-11-29] MEDS: SUCRALFATE 1 GM/10 ML UDC PO SCH ×4 (08:10→20:35)
[2018-11-29] MEDS ORDERED: SOD PHOSPHATE/SOD BIPHOSPHATE ENEMA 132 ML BTL PR STA (08:11)
[2018-11-29] MEDS ORDERED: BISACODYL 10 MG SUPP PR STA (08:11)
[2018-11-29] MEDS: GABAPENTIN 300 MG CAP PO SCH ×3 (08:11→20:35)
[2018-11-29] MEDS: METOPROLOL SUCC 25MG EXT REL TAB PO SCH ×2 (08:14→20:36)
[2018-11-29] MEDS: PANTOprazole 40 MG TAB PO SCH (08:14)
[2018-11-29] MEDS: ISOSORBIDE DINITRATE 10 MG TAB PO SCH ×2 (08:15→20:36)
[2018-11-29] MEDS: POTASSIUM CHLORIDE 10 MEQ TABCR PO SCH (08:15)
[2018-11-29] MEDS: DULOXETINE HCL 60 MG CAP PO SCH (08:16)
[2018-11-29] MEDS: MAGNESIUM OXIDE 400 MG TAB PO SCH (08:16)
[2018-11-29] MEDS: TAMSULOSIN HCL 0.4 MG CAP PO SCH (08:16)
[2018-11-29] MEDS: SPIRONOLACTONE 25 MG TAB PO SCH ×2 (08:17→16:15)
[2018-11-29] MEDS: TIOTROPIUM BROMIDE 5 PUFF/90 MCG INH INH SCH (08:18)
[2018-11-29] MEDS: NICOTINE 7 MG/24 HR TDSY TD SCH (08:18)
[2018-11-29 08:19] LABS: INR 1.1 (0.9-1.1); Prothrombin Time 11.4 Seconds (9.0-12.0)
[2018-11-29] MEDS: MoRPHine SULFATE CR 15 MG TABCR PO SCH ×2 (08:22→20:54)
[2018-11-29] MEDS: FUROSEMIDE 20 MG TAB PO SCH ×3 (08:23→20:34)
[2018-11-29] MEDS: HydrALAZINE 10 MG TAB PO SCH ×2 (08:23→20:36)
[2018-11-29] MEDS: cloNIDine HCl 0.1 MG TAB PO SCH ×2 (08:24→20:37)
[2018-11-29] MEDS: INSULIN ASPART 100 UNITS/ML 3 ML PEN SC SCH ×4 (08:25→22:31)
[2018-11-29 08:37] LABS: BUN Creatinine Ratio 22.1 (10-20); Calcium 10.7 mg/dl (8.5-10.1); Creatinine Clr Calc Pharmacy 108.7 ml/min; Est GFR (African American) 64.5; Est GFR (Non-African American) 55.6; Magnesium 2.4 mg/dl (1.8-2.4)
[2018-11-29 08:43] LABS: Basophils # (auto) 0.09 K/uL (0-0.2); Basophils % (auto) 0.4 %; Eosinophils # (auto) 0.12 K/uL (0-0.5); Eosinophils % (auto) 0.5 %; Hematocrit (blood only) 38.8 % (42-52); Immature Granulocytes # (auto) 1.05 K/uL (0.00-0.02); Immature Granulocytes % (auto) 4.3 %; Lymphocytes % (auto) 17.9 %; Mean Corpuscular Volume 83.8 fL (80-100); Monocytes # (auto) 1.74 K/uL (0.11-0.59); Monocytes % (auto) 7.1 %; Neutrophils # (auto) 17.22 K/uL (1.4-6.5); Neutrophils % (auto) 69.8 %; RDW Coefficient of Variation 17.3 % (11.5-14.5); RDW Standard Deviation 52.5 fL (36.4-46.3); Red Blood Count 4.63 M/uL (4.7-6.1); White Blood Count 24.62 K/uL (4.8-10.8)
--- NOTE | 2018-11-29 10:10 | XRay Report ---
TWO VIEW CHEST CLINICAL HISTORY: Dyspnea.. FINDINGS: AP and lateral chest radiographs are compared to study dated 10/20/2018. Correlation is made with chest CT dated 10/16/2018. The examination is degraded by large body habitus. The heart is top n ormal for projection. The pulmonary vasculature is noncongested. Bibasilar atelectasis is observed. N o airspace consolidation or pleural effusion is identified. There is no pneumothorax. Chronic posttra umatic deformity is noted in the left clavicle. IMPRESSION: No active disease in the chest. Electronically signed by: Misael Lopez M.D. 11/29/2018 10:08 AM
[2018-11-29] MEDS ORDERED: LORazepam 0.5 MG TAB PO STA (11:02)
[2018-11-29] MEDS ORDERED: BISACODYL 10 MG SUPP PR ONE (11:47)
[2018-11-29] MEDS ORDERED: LORazepam 0.25 MG/0.5 ML VIAL IV ONE (11:55)
[2018-11-29] MEDS: predniSONE 10 MG TABLET PO SCH (12:29)
[2018-11-29] MEDS ORDERED: SOD PHOSPHATE/SOD BIPHOSPHATE ENEMA 132 ML BTL PR ONE (13:58)
[2018-11-29] MEDS: WARFARIN SOD 6 MG TAB PO SCH (16:17)
--- NOTE | 2018-11-29 17:34 | Hospitalist Progress Note ---
Date of Service November 29, 2018 Assessment & Plan (1) Shortness of breath: Possible mild COPD exacerbation with CHF decompensation Prednisone 40mg , then taper Nebs q6h PRN No shortness of breath at rest Will taper steroid by 10 mg every 3 days (2) Acute diastolic CHF (congestive heart failure), NYHA class 4: (3) CHF exacerbation: Acute Diastolic CHF exacerbation Mostly due to non compliance from fluid intake (Already drank 5 cans of soda before noon) Weight on discharge on 10/27 was 194kg, weight on admission was 204 kg CXR on admission showed mild low lung volumes with minimal bibasilar atelectasis suspected. clinically imporved on Lasix 60 mg IV TID on Aldactatone appreciate input form cardiology pt will be continued with low Na diet /fluid restriction No symptoms of fluid overload at rest Chest x-ray did not show any congestive changes We will continue current dose of diuretic (4) Episode of shaking: Has had episodes of shaking with feeling of fainting episode during physical therapy He is worried about any stroke and/or seizures Wanted to see Dr. Cisneros as his neurologist Discussed with Dr. Cisneros who will see the patient tomorrow EEG has been ordered (5) Supratherapeutic INR: presented on INR > 10 Coumadin was kept on hold INR became 1.2 coumadin resumed with IV heparin bridge INR is 1.1 today Continue Lovenox and Coumadin and discontinue Lovenox when INR is therapeutic (6) Pulmonary embolism: coumadin was on hold for elevated INR on IV heparin bridge /coumadin for INR < 2 As above (7) Hypoventilation associated with obesity: 02 at night (8) Tobacco abuse disorder: ordered for Nicotine patch (9) Diastolic CHF, acute: presented with vol overload management as outlined above (10) Morbid obesity: BMI 58.6 very poorly compliant counselling provided for wt reduction and diet /exercise (11) HTN (hypertension): Labile with borderline control. per cardiology ordered : hydralazine 10 mg twice daily and Isordil 10 mill grams p.o. daily help with blood pressure and hopefully afterload reduction Added low-dose Toprol 12.5 g twice per day for further heart rate and blood pressure control (12) Chronic pain disorder: hx of narcotic pain medication dependency /abuse Continue Morphine 15mg BID and oxycodone 10mg PRN On gabapentin 900mg TID stable , no signs of distress from pain requesting to increase pain medications but does not appear to be in pain, not in distress also, will need to avoid increasing narcotics in light of wheezing, may cause respiratory depression complains of Left Sided Chest pain Atypical EKG non ischemic no hypoxia will limit ordering additional pain meds Constipation Bowel has not moved for the last 6 or 7 days We will try Dulcolax suppository and Fleet enema if no action with Dulcolax FULL CODE DVT PROPHYLASIX : iv heparin /Coumadin DIPSOTION : Rererral made to rehab possible tx to [facility] tomorrow Subjective 11/29 The patient was seen and examined in the medical floor He complains to have nonspecific symptoms like nausea without vomiting, bloated feeling without any significant distention of abdomen and/or swelling of legs He wanted to have his catheter out before he is discharged He has not had any bowel movement for the last 6 or 7 days Noted to have nonspecific shaking and presyncopal symptoms during physical therapy Physical Exam Vital Signs (Past 24 Hours): Last Vital Signs Temp 37.0 C 11/29/18 15:56 Pulse 90 11/29/18 15:56 Resp 22 11/29/18 15:56 BP 146/87 H 11/29/18 15:56 Pulse Ox 93 11/29/18 15:56 Physical Exam: No apparent distress at rest Constitutional: WD/WN, vitals as above + obese (Morbidly obese) Eyes: PERRL, conjunctivae normal, anicteric sclerae EOM intact bilaterally ENMT: external ear and nose normal, oropharynx normal Neck: trachea midline, no thyromegaly normal visual inspection and trachea midline Respiratory: normal respiratory effort, lungs clear to auscultation no respiratory distress and no cough Auscultation: + diminished lung sounds; no crackles, no rales and no wheezes Cardiovascular: Rate/Rhythm: regular rate and regular rhythm Extremities: + edema (Bilateral chronic leg edema) Gastrointestinal (Abdomen): normal bowel sounds, soft, nontender, no hepatosplenomegaly Percussion/Palpation: abdomen soft; abdomen nontender Musculoskeletal: Head/Neck/Chest: normocephalic and head atraumatic Neurologic: PERRL, EOMI, accommodation nl, no face palsy, no dysarthria Psychiatric: A+Ox3, euthymic affect Results & Data Laboratory Results Short CBC 11/29/18 Range/Units 07:55 WBC 24.62 H (4.8-10.8) K/uL Hgb 13.0 L (14.0-18.0) g/dL Hct 38.8 L (42-52) % Plt Count 223 (130-400) K/uL BMP 11/29/18 07:55 Sodium 133 L Potassium 4.0 Chloride 94 L Carbon Dioxide 31 BUN 33 H Creatinine 1.47 H Glucose 116 H Calcium 10.7 H Medications Administered Current Inpatient Medications Albuterol (Ventolin Hfa) 2 puffs INH Q4H PRN PRN Reason: Shortness Of Breath Or Wheezing Stop: 12/17/18 20:05 Last Admin: 11/28/18 09:56 Dose: 2 puffs Documented by: Albuterol (Duoneb) 3 ml NEB Q4R PRN PRN Reason: sob/wheezing Stop: 12/20/18 19:59 Clonidine HCl (Catapres) 0.1 mg PO BID [facility] Stop: 12/17/18 22:29 Last Admin: 11/29/18 08:24 Dose: 0.1 mg Documented by: Cyclobenzaprine HCl (Flexeril) 10 mg PO TID PRN PRN Reason: Muscle Spasm Stop: 12/17/18 20:05 Last Admin: 11/28/18 22:00 Dose: 10 mg Documented by: Dextrose (Dextrose 50%) 25 - 50 ml IV UD PRN; Protocol PRN Reason: Hypoglycemia Protocol Stop: 12/17/18 20:05 Docusate Sodium (Colace) 100 mg PO BID PRN PRN Reason: constipation Stop: 12/18/18 20:59 Last Admin: 11/28/18 20:42 Dose: 100 mg Documented by: Duloxetine HCl (Cymbalta) 60 mg PO QAM [facility] Stop: 12/18/18 08:59 Last Admin: 11/29/18 08:16 Dose: 60 mg Documented by: Enoxaparin Sodium (Lovenox) 150 mg SQ DAILY@0600,1800 [facility] Stop: 12/28/18 17:59 Last Admin: 11/29/18 05:42 Dose: 150 mg Documented by: Enoxaparin Sodium (Lovenox) 40 mg SQ DAILY@0600,1800 [facility] Stop: 12/28/18 17:59 Last Admin: 11/29/18 05:43 Dose: 40 mg Documented by: Furosemide (Lasix) 60 mg PO TID [facility] Stop: 12/28/18 12:59 Last Admin: 11/29/18 14:30 Dose: 60 mg Documented by: Gabapentin (Neurontin) 900 mg PO TID [facility] Stop: 12/18/18 08:59 Last Admin: 11/29/18 14:31 Dose: 900 mg Documented by: Glucagon (Glucagen) 1 mg SQ UD PRN; Protocol PRN Reason: Hypoglycemia Protocol Stop: 12/17/18 20:05 Glucose (Glucose 40%) 15 - 30 gm PO UD PRN; Protocol PRN Reason: Hypoglycemia Protocol Stop: 12/17/18 20:05 Glucose (Dex4 Glucose) 4 - 8 tabs PO UD PRN; Protocol PRN Reason: Hypoglycemia Protocol Stop: 12/17/18 20:05 Hydralazine HCl (Apresoline) 10 mg PO BID [facility] Stop: 12/25/18 20:59 Last Admin: 11/29/18 08:23 Dose: 10 mg Documented by: Hydroxyzine HCl (Vistaril) 50 mg PO Q6H PRN PRN Reason: Itching Stop: 12/17/18 20:05 Last Admin: 11/29/18 14:31 Dose: 50 mg Documented by: Insulin Aspart (Novolog Flexpen) 0 units SC ACHS [facility] Stop: 12/17/18 20:59 Last Admin: 11/29/18 12:26 Dose: 8 units Documented by: Ipratropium Roche[place] (Atrovent 0.02% 0.5mg/2.5ml) 0.5 mg INH Q6R PRN PRN Reason: wheeze Stop: 12/23/18 19:59 Isosorbide Dinitrate (Isordil) 10 mg PO BID [facility] Stop: 12/25/18 20:59 Last Admin: 11/29/18 08:15 Dose: 10 mg Documented by: Levalbuterol HCl (Xopenex 0.63 Mg/3 Ml Neb) 0.63 mg NEB Q6R PRN PRN Reason: wheeze Stop: 12/23/18 19:59 Magnesium Oxide (Mag-Ox) 400 mg PO QAM [facility] Stop: 12/17/18 20:05 Last Admin: 11/29/18 08:16 Dose: 400 mg Documented by: Metoprolol Succinate (Toprol Xl) 12.5 mg PO BID [facility] Stop: 12/26/18 20:59 Last Admin: 11/29/18 08:14 Dose: 12.5 mg Documented by: Miscellaneous (Remove Nicoderm Patch) 1 ea N/A HS [facility] Stop: 12/18/18 20:59 Last Admin: 11/28/18 20:44 Dose: Not Given Documented by: Miscellaneous (Carbohydrates For Hypoglycemia) 15 - 30 gm PO UD PRN PRN Reason: Hypoglycemia Treatment Stop: 12/17/18 20:05 Miscellaneous Information (Consult) 1 ea N/A UD PRN PRN Reason: Consult Stop: 12/28/18 15:55 Morphine Sulfate (Ms Contin) 15 mg PO BID [facility] Stop: 12/01/18 22:29 Last Admin: 11/29/18 08:22 Dose: 15 mg Documented by: Nicotine (Nicoderm Cq) 7 mg TD QAM [facility] Stop: 12/17/18 21:44 Last Admin: 11/29/18 08:18 Dose: 7 mg Documented by: Nitroglycerin (Nitrostat) 0.4 mg SL PRN PRN PRN Reason: Chest Pain Stop: 12/25/18 00:53 Last Admin: 11/25/18 01:11 Dose: 0.4 mg Documented by: Ondansetron HCl (Zofran) 4 mg IV Q6H PRN PRN Reason: Nausea Stop: 12/25/18 00:52 Last Admin: 11/29/18 10:57 Dose: 4 mg Documented by: Oxycodone HCl (Roxicodone Immediate Rel) 10 mg PO Q6 PRN PRN Reason: pain Stop: 12/01/18 22:12 Last Admin: 11/29/18 10:56 Dose: 10 mg Documented by: Pantoprazole Sodium (Protonix) 40 mg PO DAILY [facility] Stop: 12/18/18 08:59 Last Admin: 11/29/18 08:14 Dose: 40 mg Documented by: Polyethylene Glycol (Miralax Powder Packet) 17 gm PO DAILY PRN PRN Reason: Constipation Stop: 12/18/18 15:37 Last Admin: 11/28/18 19:36 Dose: 17 gm Documented by: Potassium Chloride (Klor-Con M10) 10 meq PO QAM [facility] Stop: 12/18/18 08:59 Last Admin: 11/29/18 08:15 Dose: 10 meq Documented by: Prednisone (Prednisone) 30 mg PO DAILY [facility] Stop: 12/29/18 11:14 Last Admin: 11/29/18 12:29 Dose: 30 mg Documented by: Sodium Chloride (Bee Nasal) 1 sprays HANSA PRN PRN PRN Reason: Dryness Stop: 12/18/18 16:22 Last Admin: 11/18/18 16:49 Dose: 1 sprays Documented by: Spironolactone (Aldactone) 50 mg PO BID17 [facility] Stop: 12/17/18 20:59 Last Admin: 11/29/18 16:15 Dose: 50 mg Documented by: Sucralfate (Carafate) 1 gm PO ACHS [facility] Stop: 12/17/18 20:59 Last Admin: 11/29/18 16:16 Dose: 1 gm Documented by: Tamsulosin HCl (Flomax) 0.4 mg PO QAM [facility] Stop: 12/18/18 08:59 Last Admin: 11/29/18 08:16 Dose: 0.4 mg Documented by: Tiotropium Roche[place] (Spiriva) 1 puffs INH QAM [facility] Stop: 12/18/18 08:59 Last Admin: 11/29/18 08:18 Dose: 1 puffs Documented by: Tramadol HCl (Ultram) 50 mg PO Q4H PRN PRN Reason: Pain Stop: 12/17/18 20:05 Last Admin: 11/29/18 16:15 Dose: 50 mg Documented by: Trazodone HCl (Desyrel) 50 mg PO HS PRN PRN Reason: Insomnia Stop: 12/17/18 20:05 Warfarin Sodium (Coumadin) 12 mg PO DAILY@1600 [facility] Stop: 12/28/18 15:59 Last Admin: 11/29/18 16:17 Dose: 12 mg Documented by: (1) CHF exacerbation Heart failure type: unspecified Qualified Code(s): I50.9 - Heart failure, unspecified
[2018-11-29] MEDS: CYCLOBENZAPRINE HCL 10 MG TAB PO PRN (20:39)
[2018-11-29] MEDS: DOCUSATE SODIUM 100 MG CAP PO PRN (20:54)
[2018-11-29] MEDS ORDERED: INSULIN GLARGINE SOLOSTAR 100 UNITS/ML 3 ML PEN SQ ONE (21:45)
[2018-11-30] MEDS: TRAMADOL HCL 50 MG TABLET PO PRN ×5 (02:45→22:26)
[2018-11-30] MEDS: OXYCODONE HCL IR 5 MG TAB (IMMEDIATE RELEASE) PO PRN ×3 (05:33→18:00)
[2018-11-30] MEDS: ENOXAPARIN INJ 40 MG/0.4 ML SYR SQ SCH (05:33)
[2018-11-30] MEDS: ENOXAPARIN 150 MG/ML SYR SQ SCH (05:34)
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
[2018-11-30] MEDS: GABAPENTIN 300 MG CAP PO SCH ×3 (08:10→20:33)
[2018-11-30] MEDS: MoRPHine SULFATE CR 15 MG TABCR PO SCH ×2 (08:11→20:32)
[2018-11-30] MEDS: SPIRONOLACTONE 25 MG TAB PO SCH ×2 (08:11→17:08)
[2018-11-30] MEDS: TIOTROPIUM BROMIDE 5 PUFF/90 MCG INH INH SCH (08:11)
[2018-11-30] MEDS: MAGNESIUM OXIDE 400 MG TAB PO SCH (08:11)
[2018-11-30] MEDS: PANTOprazole 40 MG TAB PO SCH (08:11)
[2018-11-30] MEDS: METOPROLOL SUCC 25MG EXT REL TAB PO SCH ×2 (08:11→22:25)
[2018-11-30] MEDS: POTASSIUM CHLORIDE 10 MEQ TABCR PO SCH (08:11)
[2018-11-30] MEDS: TAMSULOSIN HCL 0.4 MG CAP PO SCH (08:11)
[2018-11-30] MEDS: DULOXETINE HCL 60 MG CAP PO SCH (08:11)
[2018-11-30] MEDS: FUROSEMIDE 20 MG TAB PO SCH ×3 (08:11→20:31)
[2018-11-30] MEDS: HydrALAZINE 10 MG TAB PO SCH ×2 (08:12→22:26)
[2018-11-30] MEDS: ISOSORBIDE DINITRATE 10 MG TAB PO SCH ×2 (08:12→20:33)
[2018-11-30] MEDS: cloNIDine HCl 0.1 MG TAB PO SCH ×2 (08:12→20:33)
[2018-11-30] MEDS: ONDANSETRON INJ 2 MG/ML 2 ML VIAL IV PRN ×2 (08:12→18:00)
[2018-11-30] MEDS: predniSONE 10 MG TABLET PO SCH (08:12)
[2018-11-30] MEDS: SUCRALFATE 1 GM/10 ML UDC PO SCH ×4 (08:12→20:31)
[2018-11-30] MEDS: INSULIN ASPART 100 UNITS/ML 3 ML PEN SC SCH ×5 (08:13→20:36)
[2018-11-30] MEDS: NICOTINE 7 MG/24 HR TDSY TD SCH (08:13)
--- NOTE | 2018-11-30 09:51 | Hospitalist Progress Note ---
Date of Service November 30, 2018 Assessment & Plan (1) Shortness of breath: Possible mild COPD exacerbation with CHF decompensation Prednisone 40mg , then taper Nebs q6h PRN No shortness of breath at rest Will taper steroid by 10 mg every 3 days Denies any respiratory symptoms at rest (2) Acute diastolic CHF (congestive heart failure), NYHA class 4: Management as follows (3) CHF exacerbation: Acute Diastolic CHF exacerbation Mostly due to non compliance from fluid intake (Already drank 5 cans of soda before noon) Weight on discharge on 10/27 was 194kg, weight on admission was 204 kg CXR on admission showed mild low lung volumes with minimal bibasilar atelectasis suspected. 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 Cisneros as his neurologist Discussed with Dr. Cisneros who will see the patient tomorrow EEG has been ordered-final report is pending Appreciate evaluation by neurologist and recommendation (5) Supratherapeutic INR: presented on INR > 10 Coumadin was kept on hold INR became 1.2 coumadin resumed with IV heparin bridge INR is 1.1 today Continue Lovenox and Coumadin and discontinue Lovenox when INR is therapeutic We will get an INR today (6) Pulmonary embolism: coumadin was on hold for elevated INR on IV heparin bridge /coumadin for INR < 2 As above Continue Lovenox until INR is therapeutic (7) Hypoventilation associated with obesity: 02 at night Continue oxygen administration at night as before (8) Tobacco abuse disorder: ordered for Nicotine patch (9) Diastolic CHF, acute: presented with vol overload management as outlined above (10) Morbid obesity: BMI 58.6 very poorly compliant counselling provided for wt reduction and diet /exercise (11) HTN (hypertension): Labile with borderline control. per cardiology ordered : hydralazine 10 mg twice daily and Isordil 10 mill grams p.o. daily help with blood pressure and hopefully afterload reduction Added low-dose Toprol 12.5 g twice per day for further heart rate and blood pressure control (12) Chronic pain disorder: hx of narcotic pain medication dependency /abuse Continue Morphine 15mg BID and oxycodone 10mg PRN On gabapentin 900mg TID stable , no signs of distress from pain requesting to increase pain medications but does not appear to be in pain, not in distress also, will need to avoid increasing narcotics in light of wheezing, may cause respiratory depression complains of Left Sided Chest pain Atypical EKG non ischemic no hypoxia will limit ordering additional pain meds Constipation Bowel has not moved for the last 6 or 7 days We will try Dulcolax suppository and Fleet enema if no action with Dulcolax FULL CODE DVT PROPHYLASIX : iv heparin /Coumadin DIPSOTION : Rererral made to rehab possible tx to [facility] today. Subjective 11/29 The patient was seen and examined in the medical floor He complains to have nonspecific symptoms like nausea without vomiting, bloated feeling without any significant distention of abdomen and/or swelling of legs He wanted to have his catheter out before he is discharged He has not had any bowel movement for the last 6 or 7 days Noted to have nonspecific shaking and presyncopal symptoms during physical therapy 11/30 The patient was seen and examined the medical floor He is very anxious today otherwise denied any other symptoms He did not have any more shaking episode He has had a bowel movement and has been making urine normally He was evaluated by neurologist and advised that he can be discharged Physical Exam Vital Signs (Past 24 Hours): Last Vital Signs Temp 36.8 C 11/30/18 08:08 Pulse 83 11/30/18 08:08 Resp 16 11/30/18 08:08 BP 135/85 11/30/18 08:08 Pulse Ox 93 11/30/18 08:08 Physical Exam: No apparent distress at rest Constitutional: WD/WN, vitals as above + obese (Morbidly obese) Eyes: PERRL, conjunctivae normal, anicteric sclerae EOM intact bilaterally ENMT: external ear and nose normal, oropharynx normal Neck: trachea midline, no thyromegaly normal visual inspection and trachea midline Respiratory: normal respiratory effort, lungs clear to auscultation no respiratory distress and no cough Auscultation: + diminished lung sounds; no crackles, no rales and no wheezes Cardiovascular: Rate/Rhythm: regular rate and regular rhythm Extremities: + edema (Bilateral chronic leg edema) Gastrointestinal (Abdomen): normal bowel sounds, soft, nontender, no hepatosplenomegaly Percussion/Palpation: abdomen soft; abdomen nontender Musculoskeletal: Head/Neck/Chest: normocephalic and head atraumatic Neurologic: PERRL, EOMI, accommodation nl, no face palsy, no dysarthria Psychiatric: A+Ox3, euthymic affect Results & Data Medications Administered Current Inpatient Medications Albuterol (Ventolin Hfa) 2 puffs INH Q4H PRN PRN Reason: Shortness Of Breath Or Wheezing Stop: 12/17/18 20:05 Last Admin: 11/28/18 09:56 Dose: 2 puffs Documented by: Albuterol (Duoneb) 3 ml NEB Q4R PRN PRN Reason: sob/wheezing Stop: 12/20/18 19:59 Clonidine HCl (Catapres) 0.1 mg PO BID [facility] Stop: 12/17/18 22:29 Last Admin: 11/30/18 08:12 Dose: 0.1 mg Documented by: Cyclobenzaprine HCl (Flexeril) 10 mg PO TID PRN PRN Reason: Muscle Spasm Stop: 12/17/18 20:05 Last Admin: 11/29/18 20:39 Dose: 10 mg Documented by: Dextrose (Dextrose 50%) 25 - 50 ml IV UD PRN; Protocol PRN Reason: Hypoglycemia Protocol Stop: 12/17/18 20:05 Docusate Sodium (Colace) 100 mg PO BID PRN PRN Reason: constipation Stop: 12/18/18 20:59 Last Admin: 11/29/18 20:54 Dose: 100 mg Documented by: Duloxetine HCl (Cymbalta) 60 mg PO QAM [facility] Stop: 12/18/18 08:59 Last Admin: 11/30/18 08:11 Dose: 60 mg Documented by: Enoxaparin Sodium (Lovenox) 150 mg SQ DAILY@0600,1800 [facility] Stop: 12/28/18 17:59 Last Admin: 11/30/18 05:34 Dose: 150 mg Documented by: Enoxaparin Sodium (Lovenox) 40 mg SQ DAILY@0600,1800 [facility] Stop: 12/28/18 17:59 Last Admin: 11/30/18 05:33 Dose: 40 mg Documented by: Furosemide (Lasix) 60 mg PO TID [facility] Stop: 12/28/18 12:59 Last Admin: 11/30/18 08:11 Dose: 60 mg Documented by: Gabapentin (Neurontin) 900 mg PO TID [facility] Stop: 12/18/18 08:59 Last Admin: 11/30/18 08:10 Dose: 900 mg Documented by: Glucagon (Glucagen) 1 mg SQ UD PRN; Protocol PRN Reason: Hypoglycemia Protocol Stop: 12/17/18 20:05 Glucose (Glucose 40%) 15 - 30 gm PO UD PRN; Protocol PRN Reason: Hypoglycemia Protocol Stop: 12/17/18 20:05 Glucose (Dex4 Glucose) 4 - 8 tabs PO UD PRN; Protocol PRN Reason: Hypoglycemia Protocol Stop: 12/17/18 20:05 Hydralazine HCl (Apresoline) 10 mg PO BID [facility] Stop: 12/25/18 20:59 Last Admin: 11/30/18 08:12 Dose: 10 mg Documented by: Hydroxyzine HCl (Vistaril) 50 mg PO Q6H PRN PRN Reason: Itching Stop: 12/17/18 20:05 Last Admin: 11/29/18 22:09 Dose: 50 mg Documented by: Insulin Aspart (Novolog Flexpen) 0 units SC ACHS [facility] Stop: 12/29/18 21:44 Last Admin: 11/30/18 08:13 Dose: 8 units Documented by: Insulin Glargine (Lantus Solostar Pen) 10 units SQ HS [facility] Stop: 12/30/18 20:59 Ipratropium Leon (Atrovent 0.02% 0.5mg/2.5ml) 0.5 mg INH Q6R PRN PRN Reason: wheeze Stop: 12/23/18 19:59 Isosorbide Dinitrate (Isordil) 10 mg PO BID [facility] Stop: 12/25/18 20:59 Last Admin: 11/30/18 08:12 Dose: 10 mg Documented by: Levalbuterol HCl (Xopenex 0.63 Mg/3 Ml Neb) 0.63 mg NEB Q6R PRN PRN Reason: wheeze Stop: 12/23/18 19:59 Magnesium Oxide (Mag-Ox) 400 mg PO QAM [facility] Stop: 12/17/18 20:05 Last Admin: 11/30/18 08:11 Dose: 400 mg Documented by: Metoprolol Succinate (Toprol Xl) 12.5 mg PO BID [facility] Stop: 12/26/18 20:59 Last Admin: 11/30/18 08:11 Dose: 12.5 mg Documented by: Miscellaneous (Remove Nicoderm Patch) 1 ea N/A HS [facility] Stop: 12/18/18 20:59 Last Admin: 11/29/18 20:35 Dose: Not Given Documented by: Miscellaneous (Carbohydrates For Hypoglycemia) 15 - 30 gm PO UD PRN PRN Reason: Hypoglycemia Treatment Stop: 12/17/18 20:05 Miscellaneous Information (Consult) 1 ea N/A UD PRN PRN Reason: Consult Stop: 12/28/18 15:55 Morphine Sulfate (Ms Contin) 15 mg PO BID [facility] Stop: 12/01/18 22:29 Last Admin: 11/30/18 08:11 Dose: 15 mg Documented by: Nicotine (Nicoderm Cq) 7 mg TD QAM [facility] Stop: 12/17/18 21:44 Last Admin: 11/30/18 08:13 Dose: 7 mg Documented by: Nitroglycerin (Nitrostat) 0.4 mg SL PRN PRN PRN Reason: Chest Pain Stop: 12/25/18 00:53 Last Admin: 11/25/18 01:11 Dose: 0.4 mg Documented by: Ondansetron HCl (Zofran) 4 mg IV Q6H PRN PRN Reason: Nausea Stop: 12/25/18 00:52 Last Admin: 11/30/18 08:12 Dose: 4 mg Documented by: Oxycodone HCl (Roxicodone Immediate Rel) 10 mg PO Q6 PRN PRN Reason: pain Stop: 12/01/18 22:12 Last Admin: 11/30/18 05:33 Dose: 10 mg Documented by: Pantoprazole Sodium (Protonix) 40 mg PO DAILY [facility] Stop: 12/18/18 08:59 Last Admin: 11/30/18 08:11 Dose: 40 mg Documented by: Polyethylene Glycol (Miralax Powder Packet) 17 gm PO DAILY PRN PRN Reason: Constipation Stop: 12/18/18 15:37 Last Admin: 11/28/18 19:36 Dose: 17 gm Documented by: Potassium Chloride (Klor-Con M10) 10 meq PO QAM [facility] Stop: 12/18/18 08:59 Last Admin: 11/30/18 08:11 Dose: 10 meq Documented by: Prednisone (Prednisone) 30 mg PO DAILY [facility] Stop: 12/29/18 11:14 Last Admin: 11/30/18 08:12 Dose: 30 mg Documented by: Sodium Chloride ([place] Nasal) 1 sprays HANSA PRN PRN PRN Reason: Dryness Stop: 12/18/18 16:22 Last Admin: 11/18/18 16:49 Dose: 1 sprays Documented by: Spironolactone (Aldactone) 50 mg PO BID17 [facility] Stop: 12/17/18 20:59 Last Admin: 11/30/18 08:11 Dose: 50 mg Documented by: Sucralfate (Carafate) 1 gm PO ACHS [facility] Stop: 12/17/18 20:59 Last Admin: 11/30/18 08:12 Dose: 1 gm Documented by: Tamsulosin HCl (Flomax) 0.4 mg PO QAM [facility] Stop: 12/18/18 08:59 Last Admin: 11/30/18 08:11 Dose: 0.4 mg Documented by: Tiotropium Leon (Spiriva) 1 puffs INH QAM [facility] Stop: 12/18/18 08:59 Last Admin: 11/30/18 08:11 Dose: 1 puffs Documented by: Tramadol HCl (Ultram) 50 mg PO Q4H PRN PRN Reason: Pain Stop: 12/17/18 20:05 Last Admin: 11/30/18 08:11 Dose: 50 mg Documented by: Trazodone HCl (Desyrel) 50 mg PO HS PRN PRN Reason: Insomnia Stop: 12/17/18 20:05 Warfarin Sodium (Coumadin) 12 mg PO DAILY@1600 [facility] Stop: 12/28/18 15:59 Last Admin: 11/29/18 16:17 Dose: 12 mg Documented by: (1) CHF exacerbation Heart failure type: unspecified Qualified Code(s): I50.9 - Heart failure, unspecified
[2018-11-30 10:54] LABS: INR 1.1 (0.9-1.1); Prothrombin Time 11.4 Seconds (9.0-12.0)
--- NOTE | 2018-11-30 11:08 | Procedure Note ---
EEG Procedure Note Date of Service November 30, 2018 Start / End Times Start Time: 6:38 AM End Time: 6:[address] Cisneros History This is a 48-year-old male with syncope and collapse. EEG for further evaluation of possible seizure etiology. Home Medication List Home Medications Medication Instructions Recorded Confirmed Type clonidine HCl 0.1 mg PO BID 06/01/18 11/17/18 History fluticasone 2 spray INTRANASAL QAM 06/01/18 11/17/18 History hydroxyzine HCl 25 mg PO Q6H PRN 06/01/18 11/17/18 History omeprazole 20 mg PO QAM 06/01/18 11/17/18 History trazodone 50 mg PO HS PRN 09/15/18 11/17/18 History albuterol sulfate [Ventolin HFA] 2 puff INHALATION Q4H PRN 10/10/18 11/17/18 History cyclobenzaprine 10 mg PO TID PRN 10/10/18 11/17/18 History potassium chloride 10 meq PO QAM 10/10/18 11/17/18 History tramadol 100 mg PO Q6 PRN 10/10/18 11/17/18 History aspirin [Ecotrin Low Strength] 81 mg PO QAM 11/17/18 11/17/18 History duloxetine 60 mg PO QAM 11/17/18 11/17/18 History morphine 15 mg PO BID 11/17/18 11/17/18 History oxycodone 10 mg PO Q6 PRN 11/17/18 11/17/18 History docusate sodium 100 mg PO BID PRN #60 cap 11/28/18 Rx furosemide [Lasix] 60 mg PO TID 30 Days #135 tab 11/28/18 Rx hydralazine 10 mg PO BID #60 tab 11/28/18 Rx ipratropium-albuterol 3 ml NEB Q4R PRN 30 Days #30 ml 11/28/18 Rx isosorbide dinitrate 10 mg PO BID 30 Days #60 tab 11/28/18 Rx magnesium oxide 400 mg PO QAM 30 Days #30 tab 11/28/18 Rx metoprolol succinate 12.5 mg PO BID 30 Days #30 tab 11/28/18 Rx nicotine [Nicoderm CQ] 7 mg TRANSDERMAL QAM 30 Days #30 ea 11/28/18 Rx nitroglycerin [Nitrostat] 0.4 mg SUBLINGUAL PRN PRN #30 tab 11/28/18 Rx polyethylene glycol 3350 [Miralax] 17 g PO DAILY PRN #30 ea 11/28/18 Rx spironolactone 50 mg PO BID17 30 Days #60 tab 11/28/18 Rx tamsulosin 0.4 mg PO QAM 30 Days #30 cap 11/28/18 Rx tiotropium bromide [Spiriva with 1 puff INHALATION QAM 30 Days #30 11/28/18 Rx HandiHaler] inha warfarin [Coumadin] 10 mg PO DAILY #30 tab 11/28/18 Rx enoxaparin 40 mg SUBCUT DAILY@0600,1800 2 11/30/18 Rx Days #4 ml enoxaparin [Lovenox] 150 mg SUBCUT DAILY@0600,1800 2 11/30/18 Rx Days #4 ml insulin glargine [Lantus Solostar 10 unit SUBCUT HS 30 Days #1 ml 11/30/18 Rx U-100 Insulin] morphine 15 mg PO BID 5 Days #10 tab 11/30/18 Rx oxycodone 10 mg PO Q6 PRN 5 Days #30 tab 11/30/18 Rx prednisone 30 mg PO UD 9 Days #27 tab 11/30/18 Rx tramadol 50 mg PO Q4H PRN 5 Days #20 tab 11/30/18 Rx Inpatient Medication List Albuterol (Ventolin Hfa) 2 puffs INH Q4H PRN PRN Reason: Shortness Of Breath Or Wheezing Stop: 12/17/18 20:05 Last Admin: 11/28/18 09:56 Dose: 2 puffs Documented by: [id number] Admin: 11/21/18 08:14 Dose: 2 puffs Documented by: [id number] Admin: 11/20/18 07:23 Dose: 2 puffs Documented by: [id number] Admin: 11/19/18 08:54 Dose: 2 puffs Documented by: [id number] Admin: 11/18/18 19:45 Dose: 2 puffs Documented by: [id number] Admin: 11/18/18 16:49 Dose: 2 puffs Documented by: [id number] Clonidine HCl (Catapres) 0.1 mg PO BID EMPERATRIZ Stop: 12/17/18 22:29 Last Admin: 11/30/18 08:12 Dose: 0.1 mg Documented by: [id number] Admin: 11/29/18 20:37 Dose: 0.1 mg Documented by: [id number] Admin: 11/29/18 08:24 Dose: 0.1 mg Documented by: [id number] Admin: 11/28/18 20:44 Dose: 0.1 mg Documented by: [id number] Admin: 11/28/18 09:14 Dose: 0.1 mg Documented by: [id number] Admin: 11/27/18 21:30 Dose: 0.1 mg Documented by: [id number] Admin: 11/27/18 08:04 Dose: 0.1 mg Documented by: [id number] Admin: 11/26/18 21:37 Dose: 0.1 mg Documented by: [id number] Admin: 11/26/18 08:33 Dose: 0.1 mg Documented by: [id number] Admin: 11/25/18 21:14 Dose: 0.1 mg Documented by: [id number] Admin: 11/25/18 07:57 Dose: 0.1 mg Documented by: [id number] Admin: 11/24/18 21:06 Dose: 0.1 mg Documented by: [id number] Admin: 11/24/18 10:13 Dose: 0.1 mg Documented by: [id number] Admin: 11/23/18 21:59 Dose: 0.1 mg Documented by: [id number] Admin: 11/23/18 07:32 Dose: 0.1 mg Documented by: [id number] Admin: 11/22/18 20:56 Dose: 0.1 mg Documented by: [id number] Admin: 11/22/18 08:19 Dose: 0.1 mg Documented by: [id number] Admin: 11/21/18 20:40 Dose: 0.1 mg Documented by: [id number] Admin: 11/21/18 08:11 Dose: 0.1 mg Documented by: [id number] Admin: 11/20/18 20:19 Dose: 0.1 mg Documented by: [id number] Admin: 11/20/18 08:28 Dose: 0.1 mg Documented by: [id number] Admin: 11/19/18 20:22 Dose: 0.1 mg Documented by: [id number] Admin: 11/19/18 08:48 Dose: 0.1 mg Documented by: [id number] Admin: 11/18/18 20:37 Dose: 0.1 mg Documented by: [id number] Admin: 11/18/18 08:15 Dose: 0.1 mg Documented by: [id number] Admin: 11/17/18 22:39 Dose: 0.1 mg Documented by: [id number] Cyclobenzaprine HCl (Flexeril) 10 mg PO TID PRN PRN Reason: Muscle Spasm Stop: 12/17/18 20:05 Last Admin: 11/29/18 20:39 Dose: 10 mg Documented by: [id number] Admin: 11/28/18 22:00 Dose: 10 mg Documented by: [id number] Admin: 11/28/18 13:19 Dose: 10 mg Documented by: [id number] Admin: 11/27/18 23:40 Dose: 10 mg Documented by: [id number] Admin: 11/27/18 16:37 Dose: 10 mg Documented by: [id number] Admin: 11/27/18 01:51 Dose: 10 mg Documented by: [id number] Admin: 11/26/18 13:12 Dose: 10 mg Documented by: [id number] Admin: 11/25/18 18:52 Dose: 10 mg Documented by: [id number] Admin: 11/24/18 23:40 Dose: 10 mg Documented by: [id number] Admin: 11/24/18 00:57 Dose: 10 mg Documented by: [id number] Admin: 11/23/18 18:57 Dose: 10 mg Documented by: [id number] Admin: 11/23/18 11:14 Dose: 10 mg Documented by: [id number] Admin: 11/22/18 19:06 Dose: 10 mg Documented by: [id number] Admin: 11/22/18 08:23 Dose: 10 mg Documented by: [id number] Admin: 11/21/18 21:33 Dose: 10 mg Documented by: [id number] Admin: 11/21/18 09:56 Dose: 10 mg Documented by: [id number] Admin: 11/20/18 21:45 Dose: 10 mg Documented by: [id number] Admin: 11/20/18 13:51 Dose: 10 mg Documented by: [id number] Admin: 11/19/18 21:44 Dose: 10 mg Documented by: [id number] Admin: 11/19/18 12:12 Dose: 10 mg Documented by: [id number] Admin: 11/19/18 02:33 Dose: 10 mg Documented by: [id number] Admin: 11/18/18 18:50 Dose: 10 mg Documented by: [id number] Docusate Sodium (Colace) 100 mg PO BID PRN PRN Reason: constipation Stop: 12/18/18 20:59 Last Admin: 11/29/18 20:54 Dose: 100 mg Documented by: [id number] Admin: 11/28/18 20:42 Dose: 100 mg Documented by: [id number] Admin: 11/27/18 21:45 Dose: 100 mg Documented by: [id number] Admin: 11/26/18 21:09 Dose: 100 mg Documented by: [id number] Admin: 11/25/18 21:14 Dose: 100 mg Documented by: [id number] Admin: 11/25/18 15:34 Dose: 100 mg Documented by: [id number] Admin: 11/24/18 10:13 Dose: 100 mg Documented by: [id number] Admin: 11/23/18 10:07 Dose: 100 mg Documented by: [id number] Admin: 11/22/18 08:28 Dose: 100 mg Documented by: [id number] Admin: 11/21/18 09:56 Dose: 100 mg Documented by: [id number] Admin: 11/18/18 16:49 Dose: 100 mg Documented by: [id number] Duloxetine HCl (Cymbalta) 60 mg PO QAM EMPERATRIZ Stop: 12/18/18 08:59 Last Admin: 11/30/18 08:11 Dose: 60 mg Documented by: [id number] Admin: 11/29/18 08:16 Dose: 60 mg Documented by: [id number] Admin: 11/28/18 09:16 Dose: 60 mg Documented by: [id number] Admin: 11/27/18 08:08 Dose: 60 mg Documented by: [id number] Admin: 11/26/18 08:25 Dose: 60 mg Documented by: [id number] Admin: 11/25/18 07:45 Dose: 60 mg Documented by: [id number] Admin: 11/24/18 08:55 Dose: 60 mg Documented by: [id number] Admin: 11/23/18 07:32 Dose: 60 mg Documented by: [id number] Admin: 11/22/18 08:19 Dose: 60 mg Documented by: [id number] Admin: 11/21/18 08:09 Dose: 60 mg Documented by: [id number] Admin: 11/20/18 08:28 Dose: 60 mg Documented by: [id number] Admin: 11/19/18 08:48 Dose: 60 mg Documented by: [id number] Admin: 11/18/18 08:16 Dose: 60 mg Documented by: [id number] Enoxaparin Sodium (Lovenox) 150 mg SQ DAILY@0600,1800 [facility] Stop: 12/28/18 17:59 Last Admin: 11/30/18 05:34 Dose: 150 mg Documented by: [id number] Admin: 11/29/18 17:32 Dose: 150 mg Documented by: [id number] Admin: 11/29/18 05:42 Dose: 150 mg Documented by: [id number] Admin: 11/28/18 17:08 Dose: 150 mg Documented by: [id number] Enoxaparin Sodium (Lovenox) 40 mg SQ DAILY@0600,1800 [facility] Stop: 12/28/18 17:59 Last Admin: 11/30/18 05:33 Dose: 40 mg Documented by: [id number] Admin: 11/29/18 17:31 Dose: 40 mg Documented by: [id number] Admin: 11/29/18 05:43 Dose: 40 mg Documented by: [id number] Admin: 11/28/18 17:07 Dose: 40 mg Documented by: [id number] Furosemide (Lasix) 60 mg PO TID [facility] Stop: 12/28/18 12:59 Last Admin: 11/30/18 08:11 Dose: 60 mg Documented by: [id number] Admin: 11/29/18 20:34 Dose: 60 mg Documented by: [id number] Admin: 11/29/18 14:30 Dose: 60 mg Documented by: [id number] Admin: 11/29/18 08:23 Dose: 60 mg Documented by: [id number] Admin: 11/28/18 20:43 Dose: 60 mg Documented by: [id number] Admin: 11/28/18 13:27 Dose: Not Given Documented by: [id number] Gabapentin (Neurontin) 900 mg PO TID [facility] Stop: 12/18/18 08:59 Last Admin: 11/30/18 08:10 Dose: 900 mg Documented by: [id number] Admin: 11/29/18 20:35 Dose: 900 mg Documented by: [id number] Admin: 11/29/18 14:31 Dose: 900 mg Documented by: [id number] Admin: 11/29/18 08:11 Dose: 900 mg Documented by: [id number] Admin: 11/28/18 20:44 Dose: 900 mg Documented by: [id number] Admin: 11/28/18 13:18 Dose: 900 mg Documented by: [id number] Admin: 11/28/18 09:16 Dose: 900 mg Documented by: [id number] Admin: 11/27/18 21:29 Dose: 900 mg Documented by: [id number] Admin: 11/27/18 14:19 Dose: 900 mg Documented by: [id number] Admin: 11/27/18 08:08 Dose: 900 mg Documented by: [id number] Admin: 11/26/18 21:17 Dose: 900 mg Documented by: [id number] Admin: 11/26/18 13:12 Dose: 900 mg Documented by: [id number] Admin: 11/26/18 08:25 Dose: 900 mg Documented by: [id number] Admin: 11/25/18 21:14 Dose: 900 mg Documented by: [id number] Admin: 11/25/18 13:45 Dose: 900 mg Documented by: [id number] Admin: 11/25/18 07:45 Dose: 900 mg Documented by: [id number] Admin: 11/24/18 21:07 Dose: 900 mg Documented by: [id number] Admin: 11/24/18 14:09 Dose: 900 mg Documented by: [id number] Admin: 11/24/18 08:57 Dose: 900 mg Documented by: [id number] Admin: 11/23/18 21:39 Dose: 900 mg Documented by: [id number] Admin: 11/23/18 14:10 Dose: 900 mg Documented by: [id number] Admin: 11/23/18 07:33 Dose: 900 mg Documented by: [id number] Admin: 11/22/18 20:57 Dose: 900 mg Documented by: [id number] Admin: 11/22/18 13:47 Dose: 900 mg Documented by: [id number] Admin: 11/22/18 08:19 Dose: 900 mg Documented by: [id number] Admin: 11/21/18 20:40 Dose: 900 mg Documented by: [id number] Admin: 11/21/18 14:39 Dose: 900 mg Documented by: [id number] Admin: 11/21/18 08:09 Dose: 900 mg Documented by: [id number] Admin: 11/20/18 20:19 Dose: 900 mg Documented by: [id number] Admin: 11/20/18 15:26 Dose: 900 mg Documented by: [id number] Admin: 11/20/18 08:28 Dose: 900 mg Documented by: [id number] Admin: 11/19/18 20:22 Dose: 900 mg Documented by: [id number] Admin: 11/19/18 14:37 Dose: 900 mg Documented by: [id number] Admin: 11/19/18 08:47 Dose: 900 mg Documented by: [id number] Admin: 11/18/18 20:37 Dose: 900 mg Documented by: [id number] Admin: 11/18/18 14:40 Dose: 900 mg Documented by: [id number] Admin: 11/18/18 08:16 Dose: 900 mg Documented by: [id number] Admin: 11/17/18 22:48 Dose: 900 mg Documented by: [id number] Hydralazine HCl (Apresoline) 10 mg PO BID EMPERATRIZ Stop: 12/25/18 20:59 Last Admin: 11/30/18 08:12 Dose: 10 mg Documented by: [id number] Admin: 11/29/18 20:36 Dose: 10 mg Documented by: [id number] Admin: 11/29/18 08:23 Dose: 10 mg Documented by: [id number] Admin: 11/28/18 20:42 Dose: 10 mg Documented by: [id number] Admin: 11/28/18 09:15 Dose: 10 mg Documented by: [id number] Admin: 11/27/18 21:30 Dose: 10 mg Documented by: [id number] Admin: 11/27/18 08:05 Dose: 10 mg Documented by: [id number] Admin: 11/26/18 21:15 Dose: 10 mg Documented by: [id number] Admin: 11/26/18 08:26 Dose: 10 mg Documented by: [id number] Admin: 11/25/18 21:14 Dose: 10 mg Documented by: [id number] Hydroxyzine HCl (Vistaril) 50 mg PO Q6H PRN PRN Reason: Itching Stop: 12/17/18 20:05 Last Admin: 11/29/18 22:09 Dose: 50 mg Documented by: [id number] Admin: 11/29/18 14:31 Dose: 50 mg Documented by: [id number] Admin: 11/28/18 22:01 Dose: 50 mg Documented by: [id number] Admin: 11/28/18 13:19 Dose: 50 mg Documented by: [id number] Admin: 11/27/18 23:41 Dose: 50 mg Documented by: [id number] Admin: 11/27/18 16:09 Dose: 50 mg Documented by: [id number] Admin: 11/27/18 01:51 Dose: 50 mg Documented by: [id number] Admin: 11/26/18 15:49 Dose: 50 mg Documented by: [id number] Admin: 11/26/18 02:08 Dose: 50 mg Documented by: [id number] Admin: 11/25/18 17:46 Dose: 50 mg Documented by: [id number] Admin: 11/25/18 07:47 Dose: 50 mg Documented by: [id number] Admin: 11/24/18 22:38 Dose: 50 mg Documented by: [id number] Insulin Aspart (Novolog Flexpen) 0 units SC ACHS EMPERATRIZ Stop: 12/29/18 21:44 Last Admin: 11/30/18 08:13 Dose: 8 units Documented by: [id number] Cosigned by: [id number] Admin: 11/29/18 22:31 Dose: 10 units Documented by: [id number] Cosigned by: [id number] Isosorbide Dinitrate (Isordil) 10 mg PO BID EMPERATRIZ Stop: 12/25/18 20:59 Last Admin: 11/30/18 08:12 Dose: 10 mg Documented by: [id number] Admin: 11/29/18 20:36 Dose: 10 mg Documented by: [id number] Admin: 11/29/18 08:15 Dose: 10 mg Documented by: [id number] Admin: 11/28/18 20:43 Dose: 10 mg Documented by: [id number] Admin: 11/28/18 09:15 Dose: 10 mg Documented by: [id number] Admin: 11/27/18 21:29 Dose: 10 mg Documented by: [id number] Admin: 11/27/18 08:06 Dose: 10 mg Documented by: [id number] Admin: 11/26/18 21:16 Dose: 10 mg Documented by: [id number] Admin: 11/26/18 08:25 Dose: 10 mg Documented by: [id number] Admin: 11/25/18 21:14 Dose: 10 mg Documented by: [id number] Magnesium Oxide (Mag-Ox) 400 mg PO QAM EMPERATRIZ Stop: 12/17/18 20:05 Last Admin: 11/30/18 08:11 Dose: 400 mg Documented by: [id number] Admin: 11/29/18 08:16 Dose: 400 mg Documented by: [id number] Admin: 11/28/18 09:15 Dose: 400 mg Documented by: [id number] Admin: 11/27/18 08:06 Dose: 400 mg Documented by: [id number] Admin: 11/26/18 08:25 Dose: 400 mg Documented by: [id number] Admin: 11/25/18 07:45 Dose: 400 mg Documented by: [id number] Admin: 11/24/18 09:03 Dose: 400 mg Documented by: [id number] Admin: 11/23/18 07:30 Dose: 400 mg Documented by: [id number] Admin: 11/22/18 08:19 Dose: 400 mg Documented by: [id number] Admin: 11/21/18 08:14 Dose: 400 mg Documented by: [id number] Admin: 11/20/18 08:27 Dose: 400 mg Documented by: [id number] Admin: 11/19/18 08:47 Dose: 400 mg Documented by: [id number] Admin: 11/18/18 10:48 Dose: 400 mg Documented by: [id number] Admin: 11/17/18 21:50 Dose: 400 mg Documented by: [id number] Metoprolol Succinate (Toprol Xl) 12.5 mg PO BID EMPERATRIZ Stop: 12/26/18 20:59 Last Admin: 11/30/18 08:11 Dose: 12.5 mg Documented by: [id number] Admin: 11/29/18 20:36 Dose: 12.5 mg Documented by: [id number] Admin: 11/29/18 08:14 Dose: 12.5 mg Documented by: [id number] Admin: 11/28/18 20:45 Dose: 12.5 mg Documented by: [id number] Admin: 11/28/18 09:56 Dose: 12.5 mg Documented by: [id number] Admin: 11/27/18 21:30 Dose: 12.5 mg Documented by: [id number] Admin: 11/27/18 08:06 Dose: 12.5 mg Documented by: [id number] Admin: 11/26/18 21:15 Dose: 12.5 mg Documented by: [id number] Miscellaneous (Remove Nicoderm Patch) 1 ea N/A HS EMPERATRIZ Stop: 12/18/18 20:59 Last Admin: 11/29/18 20:35 Dose: Not Given Documented by: [id number] Admin: 11/28/18 20:44 Dose: Not Given Documented by: [id number] Admin: 11/27/18 21:26 Dose: Not Given Documented by: [id number] Admin: 11/26/18 21:19 Dose: Not Given Documented by: [id number] Admin: 11/25/18 21:15 Dose: Not Given Documented by: [id number] Admin: 11/24/18 21:07 Dose: Not Given Documented by: [id number] Admin: 11/23/18 21:41 Dose: Not Given Documented by: [id number] Admin: 11/22/18 20:58 Dose: Not Given Documented by: [id number] Admin: 11/21/18 20:41 Dose: Not Given Documented by: [id number] Admin: 11/20/18 20:21 Dose: 1 ea Documented by: [id number] Admin: 11/19/18 20:23 Dose: Not Given Documented by: [id number] Admin: 11/18/18 20:38 Dose: 1 ea Documented by: [id number] Morphine Sulfate (Ms Contin) 15 mg PO BID EMPERATRIZ Stop: 12/01/18 22:29 Last Admin: 11/30/18 08:11 Dose: 15 mg Documented by: [id number] Admin: 11/29/18 20:54 Dose: 15 mg Documented by: [id number] Admin: 11/29/18 08:22 Dose: 15 mg Documented by: [id number] Admin: 11/28/18 20:42 Dose: 15 mg Documented by: [id number] Admin: 11/28/18 09:14 Dose: 15 mg Documented by: [id number] Admin: 11/27/18 21:31 Dose: 15 mg Documented by: [id number] Admin: 11/27/18 08:04 Dose: 15 mg Documented by: [id number] Admin: 11/26/18 21:19 Dose: 15 mg Documented by: [id number] Admin: 11/26/18 08:33 Dose: 15 mg Documented by: [id number] Admin: 11/25/18 21:12 Dose: 15 mg Documented by: [id number] Admin: 11/25/18 07:57 Dose: 15 mg Documented by: [id number] Admin: 11/24/18 21:06 Dose: 15 mg Documented by: [id number] Admin: 11/24/18 08:53 Dose: 15 mg Documented by: [id number] Admin: 11/23/18 21:39 Dose: 15 mg Documented by: [id number] Admin: 11/23/18 07:28 Dose: 15 mg Documented by: [id number] Admin: 11/22/18 20:56 Dose: 15 mg Documented by: [id number] Admin: 11/22/18 08:28 Dose: 15 mg Documented by: [id number] Admin: 11/21/18 20:36 Dose: 15 mg Documented by: [id number] Admin: 11/21/18 08:05 Dose: 15 mg Documented by: [id number] Admin: 11/20/18 20:19 Dose: 15 mg Documented by: [id number] Admin: 11/20/18 08:24 Dose: 15 mg Documented by: [id number] Admin: 11/19/18 20:37 Dose: 15 mg Documented by: [id number] Admin: 11/19/18 08:47 Dose: 15 mg Documented by: [id number] Admin: 11/18/18 20:51 Dose: 15 mg Documented by: [id number] Admin: 11/18/18 08:21 Dose: 15 mg Documented by: [id number] Admin: 11/17/18 22:40 Dose: 15 mg Documented by: [id number] Nicotine (Nicoderm Cq) 7 mg TD [facility] Stop: 12/17/18 21:44 Last Admin: 11/30/18 08:13 Dose: 7 mg Documented by: [id number] Admin: 11/29/18 08:18 Dose: 7 mg Documented by: [id number] Admin: 11/28/18 09:16 Dose: 7 mg Documented by: [id number] Admin: 11/27/18 08:07 Dose: 7 mg Documented by: [id number] Admin: 11/26/18 08:26 Dose: 7 mg Documented by: [id number] Admin: 11/25/18 07:46 Dose: 7 mg Documented by: [id number] Admin: 11/24/18 08:58 Dose: 7 mg Documented by: [id number] Admin: 11/23/18 07:32 Dose: 7 mg Documented by: [id number] Admin: 11/22/18 08:20 Dose: 7 mg Documented by: [id number] Admin: 11/21/18 08:10 Dose: 7 mg Documented by: [id number] Admin: 11/20/18 08:27 Dose: 7 mg Documented by: [id number] Admin: 11/19/18 11:01 Dose: 7 mg Documented by: [id number] Admin: 11/17/18 21:49 Dose: 7 mg Documented by: [id number] Nitroglycerin (Nitrostat) 0.4 mg SL PRN PRN PRN Reason: Chest Pain Stop: 12/25/18 00:53 Last Admin: 11/25/18 01:11 Dose: 0.4 mg Documented by: [id number] Ondansetron HCl (Zofran) 4 mg IV Q6H PRN PRN Reason: Nausea Stop: 12/25/18 00:52 Last Admin: 11/30/18 08:12 Dose: 4 mg Documented by: [id number] Admin: 11/29/18 23:35 Dose: 4 mg Documented by: [id number] Admin: 11/29/18 17:40 Dose: 4 mg Documented by: [id number] Admin: 11/29/18 10:57 Dose: 4 mg Documented by: [id number] Admin: 11/29/18 04:04 Dose: 4 mg Documented by: [id number] Admin: 11/28/18 20:54 Dose: 4 mg Documented by: [id number] Admin: 11/28/18 13:18 Dose: 4 mg Documented by: [id number] Admin: 11/28/18 02:30 Dose: 4 mg Documented by: [id number] Admin: 11/27/18 16:27 Dose: 4 mg Documented by: [id number] Admin: 11/27/18 08:13 Dose: 4 mg Documented by: [id number] Admin: 11/26/18 19:51 Dose: 4 mg Documented by: [id number] Admin: 11/26/18 11:17 Dose: 4 mg Documented by: [id number] Admin: 11/25/18 21:49 Dose: 4 mg Documented by: [id number] Admin: 11/25/18 15:34 Dose: 4 mg Documented by: [id number] Admin: 11/25/18 01:11 Dose: 4 mg Documented by: [id number] Oxycodone HCl (Roxicodone Immediate Rel) 10 mg PO Q6 PRN PRN Reason: pain Stop: 12/01/18 22:12 Last Admin: 11/30/18 05:33 Dose: 10 mg Documented by: [id number] Admin: 11/29/18 23:32 Dose: 10 mg Documented by: [id number] Admin: 11/29/18 17:31 Dose: 10 mg Documented by: [id number] Admin: 11/29/18 10:56 Dose: 10 mg Documented by: [id number] Admin: 11/29/18 04:03 Dose: 10 mg Documented by: [id number] Admin: 11/28/18 22:00 Dose: 10 mg Documented by: [id number] Admin: 11/28/18 15:27 Dose: 10 mg Documented by: [id number] Admin: 11/28/18 09:21 Dose: 10 mg Documented by: [id number] Admin: 11/28/18 02:30 Dose: 10 mg Documented by: [id number] Admin: 11/27/18 19:53 Dose: 10 mg Documented by: [id number] Admin: 11/27/18 13:44 Dose: 10 mg Documented by: [id number] Admin: 11/27/18 06:41 Dose: 10 mg Documented by: [id number] Admin: 11/26/18 21:37 Dose: 10 mg Documented by: [id number] Admin: 11/26/18 15:40 Dose: 10 mg Documented by: [id number] Admin: 11/26/18 08:33 Dose: 10 mg Documented by: [id number] Admin: 11/26/18 02:01 Dose: 10 mg Documented by: [id number] Admin: 11/25/18 19:38 Dose: 10 mg Documented by: [id number] Admin: 11/25/18 12:45 Dose: 10 mg Documented by: [id number] Admin: 11/25/18 06:11 Dose: 10 mg Documented by: [id number] Admin: 11/24/18 22:38 Dose: 10 mg Documented by: [id number] Admin: 11/24/18 16:23 Dose: 10 mg Documented by: [id number] Admin: 11/24/18 10:13 Dose: 10 mg Documented by: [id number] Admin: 11/24/18 03:49 Dose: 10 mg Documented by: [id number] Admin: 11/23/18 20:41 Dose: 10 mg Documented by: [id number] Admin: 11/23/18 14:08 Dose: 10 mg Documented by: [id number] Admin: 11/23/18 07:27 Dose: 10 mg Documented by: [id number] Admin: 11/23/18 00:21 Dose: 10 mg Documented by: [id number] Admin: 11/22/18 18:03 Dose: 10 mg Documented by: [id number] Admin: 11/22/18 11:59 Dose: 10 mg Documented by: [id number] Admin: 11/22/18 04:33 Dose: 10 mg Documented by: [id number] Admin: 11/21/18 22:39 Dose: 10 mg Documented by: [id number] Admin: 11/21/18 16:15 Dose: 10 mg Documented by: [id number] Admin: 11/21/18 10:01 Dose: 10 mg Documented by: [id number] Admin: 11/21/18 03:59 Dose: 10 mg Documented by: [id number] Admin: 11/20/18 21:48 Dose: 10 mg Documented by: [id number] Admin: 11/20/18 12:42 Dose: 10 mg Documented by: [id number] Admin: 11/20/18 06:14 Dose: 10 mg Documented by: [id number] Admin: 11/19/18 23:28 Dose: 10 mg Documented by: [id number] Admin: 11/19/18 17:29 Dose: 10 mg Documented by: [id number] Admin: 11/19/18 12:02 Dose: 10 mg Documented by: [id number] Admin: 11/19/18 05:40 Dose: 10 mg Documented by: [id number] Admin: 11/18/18 23:13 Dose: 10 mg Documented by: [id number] Admin: 11/18/18 17:58 Dose: 10 mg Documented by: [id number] Admin: 11/18/18 11:36 Dose: 10 mg Documented by: [id number] Admin: 11/18/18 05:36 Dose: 10 mg Documented by: [id number] Admin: 11/17/18 22:39 Dose: 10 mg Documented by: [id number] Pantoprazole Sodium (Protonix) 40 mg PO DAILY EMPERATRIZ Stop: 12/18/18 08:59 Last Admin: 11/30/18 08:11 Dose: 40 mg Documented by: [id number] Admin: 11/29/18 08:14 Dose: 40 mg Documented by: [id number] Admin: 11/28/18 09:16 Dose: 40 mg Documented by: [id number] Admin: 11/27/18 08:07 Dose: 40 mg Documented by: [id number] Admin: 11/26/18 08:26 Dose: 40 mg Documented by: [id number] Admin: 11/25/18 07:45 Dose: 40 mg Documented by: [id number] Admin: 11/24/18 08:56 Dose: 40 mg Documented by: [id number] Admin: 11/23/18 07:33 Dose: 40 mg Documented by: [id number] Admin: 11/22/18 08:20 Dose: 40 mg Documented by: [id number] Admin: 11/21/18 08:12 Dose: 40 mg Documented by: [id number] Admin: 11/20/18 08:27 Dose: 40 mg Documented by: [id number] Admin: 11/19/18 08:47 Dose: 40 mg Documented by: [id number] Admin: 11/18/18 08:15 Dose: 40 mg Documented by: [id number] Polyethylene Glycol (Miralax Powder Packet) 17 gm PO DAILY PRN PRN Reason: Constipation Stop: 12/18/18 15:37 Last Admin: 11/28/18 19:36 Dose: 17 gm Documented by: [id number] Admin: 11/27/18 21:48 Dose: 17 gm Documented by: [id number] Admin: 11/26/18 21:10 Dose: 17 gm Documented by: [id number] Admin: 11/23/18 10:08 Dose: 17 gm Documented by: [id number] Admin: 11/22/18 08:28 Dose: 17 gm Documented by: [id number] Admin: 11/20/18 08:23 Dose: 17 gm Documented by: [id number] Admin: 11/19/18 21:30 Dose: 17 gm Documented by: [id number] Potassium Chloride (Klor-Con M10) 10 meq PO QAM EMPERATRIZ Stop: 12/18/18 08:59 Last Admin: 11/30/18 08:11 Dose: 10 meq Documented by: [id number] Admin: 11/29/18 08:15 Dose: 10 meq Documented by: [id number] Admin: 11/28/18 09:15 Dose: 10 meq Documented by: [id number] Admin: 11/27/18 08:07 Dose: 10 meq Documented by: [id number] Admin: 11/26/18 08:25 Dose: 10 meq Documented by: [id number] Admin: 11/25/18 07:45 Dose: 10 meq Documented by: [id number] Admin: 11/24/18 09:00 Dose: 10 meq Documented by: [id number] Admin: 11/23/18 07:29 Dose: 10 meq Documented by: [id number] Admin: 11/22/18 08:19 Dose: 10 meq Documented by: [id number] Admin: 11/21/18 08:11 Dose: 10 meq Documented by: [id number] Admin: 11/20/18 08:27 Dose: 10 meq Documented by: [id number] Admin: 11/19/18 08:47 Dose: 10 meq Documented by: [id number] Admin: 11/18/18 08:15 Dose: 10 meq Documented by: [id number] Prednisone (Prednisone) 30 mg PO DAILY EMPERATRIZ Stop: 12/29/18 11:14 Last Admin: 11/30/18 08:12 Dose: 30 mg Documented by: [id number] Admin: 11/29/18 12:29 Dose: 30 mg Documented by: [id number] Sodium Chloride ([place] Nasal) 1 sprays HANSA PRN PRN PRN Reason: Dryness Stop: 12/18/18 16:22 Last Admin: 11/18/18 16:49 Dose: 1 sprays Documented by: [id number] Spironolactone (Aldactone) 50 mg PO BID17 EMPERATRIZ Stop: 12/17/18 20:59 Last Admin: 11/30/18 08:11 Dose: 50 mg Documented by: [id number] Admin: 11/29/18 16:15 Dose: 50 mg Documented by: [id number] Admin: 11/29/18 08:17 Dose: 50 mg Documented by: [id number] Admin: 11/28/18 17:06 Dose: 50 mg Documented by: [id number] Admin: 11/28/18 09:15 Dose: 50 mg Documented by: [id number] Admin: 11/27/18 16:30 Dose: 50 mg Documented by: [id number] Admin: 11/27/18 08:06 Dose: 50 mg Documented by: [id number] Admin: 11/26/18 17:13 Dose: 50 mg Documented by: [id number] Admin: 11/26/18 08:26 Dose: 50 mg Documented by: [id number] Admin: 11/25/18 17:34 Dose: 50 mg Documented by: [id number] Admin: 11/25/18 07:45 Dose: 50 mg Documented by: [id number] Admin: 11/24/18 16:19 Dose: 50 mg Documented by: [id number] Admin: 11/24/18 09:01 Dose: 50 mg Documented by: [id number] Admin: 11/23/18 16:40 Dose: 50 mg Documented by: [id number] Admin: 11/23/18 07:31 Dose: 50 mg Documented by: [id number] Admin: 11/22/18 15:53 Dose: 50 mg Documented by: [id number] Admin: 11/22/18 08:20 Dose: 50 mg Documented by: [id number] Admin: 11/21/18 16:18 Dose: 50 mg Documented by: [id number] Admin: 11/21/18 08:13 Dose: 50 mg Documented by: [id number] Admin: 11/20/18 17:09 Dose: 50 mg Documented by: [id number] Admin: 11/20/18 08:27 Dose: 50 mg Documented by: [id number] Admin: 11/19/18 17:16 Dose: 50 mg Documented by: [id number] Admin: 11/19/18 08:46 Dose: 50 mg Documented by: [id number] Admin: 11/18/18 16:57 Dose: 50 mg Documented by: [id number] Admin: 11/18/18 08:14 Dose: 50 mg Documented by: [id number] Admin: 11/17/18 21:49 Dose: 50 mg Documented by: [id number] Sucralfate (Carafate) 1 gm PO ACHS EMPERATRIZ Stop: 12/17/18 20:59 Last Admin: 11/30/18 08:12 Dose: 1 gm Documented by: [id number] Admin: 11/29/18 20:35 Dose: 1 gm Documented by: [id number] Admin: 11/29/18 16:16 Dose: 1 gm Documented by: [id number] Admin: 11/29/18 12:19 Dose: 1 gm Documented by: [id number] Admin: 11/29/18 08:10 Dose: 1 gm Documented by: [id number] Admin: 11/28/18 20:42 Dose: 1 gm Documented by: [id number] Admin: 11/28/18 15:26 Dose: 1 gm Documented by: [id number] Admin: 11/28/18 13:18 Dose: 1 gm Documented by: [id number] Admin: 11/28/18 09:14 Dose: 1 gm Documented by: [id number] Admin: 11/27/18 21:30 Dose: 1 gm Documented by: [id number] Admin: 11/27/18 16:30 Dose: 1 gm Documented by: [id number] Admin: 11/27/18 12:27 Dose: 1 gm Documented by: [id number] Admin: 11/27/18 08:04 Dose: 1 gm Documented by: [id number] Admin: 11/26/18 21:16 Dose: 1 gm Documented by: [id number] Admin: 11/26/18 17:13 Dose: 1 gm Documented by: [id number] Admin: 11/26/18 13:12 Dose: 1 gm Documented by: [id number] Admin: 11/26/18 08:26 Dose: 1 gm Documented by: [id number] Admin: 11/25/18 21:14 Dose: 1 gm Documented by: [id number] Admin: 11/25/18 15:26 Dose: 1 gm Documented by: [id number] Admin: 11/25/18 12:16 Dose: 1 gm Documented by: [id number] Admin: 11/25/18 07:45 Dose: 1 gm Documented by: [id number] Admin: 11/24/18 21:07 Dose: 1 gm Documented by: [id number] Admin: 11/24/18 16:18 Dose: 1 gm Documented by: [id number] Admin: 11/24/18 12:11 Dose: 1 gm Documented by: [id number] Admin: 11/24/18 08:54 Dose: 1 gm Documented by: [id number] Admin: 11/23/18 21:40 Dose: 1 gm Documented by: [id number] Admin: 11/23/18 16:40 Dose: 1 gm Documented by: [id number] Admin: 11/23/18 14:03 Dose: 1 gm Documented by: [id number] Admin: 11/23/18 07:32 Dose: 1 gm Documented by: [id number] Admin: 11/22/18 20:57 Dose: 1 gm Documented by: [id number] Admin: 11/22/18 15:53 Dose: 1 gm Documented by: [id number] Admin: 11/22/18 12:16 Dose: 1 gm Documented by: [id number] Admin: 11/22/18 08:19 Dose: 1 gm Documented by: [id number] Admin: 11/21/18 20:39 Dose: 1 gm Documented by: [id number] Admin: 11/21/18 16:17 Dose: 1 gm Documented by: [id number] Admin: 11/21/18 12:13 Dose: 1 gm Documented by: [id number] Admin: 11/21/18 08:07 Dose: 1 gm Documented by: [id number] Admin: 11/20/18 20:19 Dose: 1 gm Documented by: [id number] Admin: 11/20/18 17:09 Dose: 1 gm Documented by: [id number] Admin: 11/20/18 11:06 Dose: 1 gm Documented by: [id number] Admin: 11/20/18 07:23 Dose: 1 gm Documented by: [id number] Admin: 11/19/18 20:22 Dose: 1 gm Documented by: [id number] Admin: 11/19/18 17:14 Dose: 1 gm Documented by: [id number] Admin: 11/19/18 11:03 Dose: 1 gm Documented by: [id number] Admin: 11/19/18 08:39 Dose: 1 gm Documented by: [id number] Admin: 11/18/18 20:38 Dose: 1 gm Documented by: [id number] Admin: 11/18/18 15:40 Dose: 1 gm Documented by: [id number] Admin: 11/18/18 11:37 Dose: 1 gm Documented by: [id number] Admin: 11/18/18 08:14 Dose: 1 gm Documented by: [id number] Admin: 11/17/18 21:49 Dose: 1 gm Documented by: [id number] Tamsulosin HCl (Flomax) 0.4 mg PO QAM EMPERATRIZ Stop: 12/18/18 08:59 Last Admin: 11/30/18 08:11 Dose: 0.4 mg Documented by: [id number] Admin: 11/29/18 08:16 Dose: 0.4 mg Documented by: [id number] Admin: 11/28/18 09:15 Dose: 0.4 mg Documented by: [id number] Admin: 11/27/18 08:06 Dose: 0.4 mg Documented by: [id number] Admin: 11/26/18 08:25 Dose: 0.4 mg Documented by: [id number] Admin: 11/25/18 07:45 Dose: 0.4 mg Documented by: [id number] Admin: 11/24/18 09:01 Dose: 0.4 mg Documented by: [id number] Admin: 11/23/18 07:32 Dose: 0.4 mg Documented by: [id number] Admin: 11/22/18 10:20 Dose: 0.4 mg Documented by: [id number] Admin: 11/21/18 08:09 Dose: 0.4 mg Documented by: [id number] Admin: 11/20/18 08:27 Dose: 0.4 mg Documented by: [id number] Admin: 11/19/18 08:47 Dose: 0.4 mg Documented by: [id number] Admin: 11/18/18 08:16 Dose: 0.4 mg Documented by: [id number] Tiotropium [place] (Spiriva) 1 puffs INH QA EMPERATRIZ Stop: 12/18/18 08:59 Last Admin: 11/30/18 08:11 Dose: 1 puffs Documented by: [id number] Admin: 11/29/18 08:18 Dose: 1 puffs Documented by: [id number] Admin: 11/28/18 09:56 Dose: 1 puffs Documented by: [id number] Admin: 11/27/18 08:08 Dose: 1 puffs Documented by: [id number] Admin: 11/26/18 08:25 Dose: 1 puffs Documented by: [id number] Admin: 11/25/18 07:47 Dose: 1 puffs Documented by: [id number] Admin: 11/24/18 08:59 Dose: 1 puffs Documented by: [id number] Admin: 11/23/18 11:15 Dose: 1 puffs Documented by: [id number] Admin: 11/22/18 08:19 Dose: 1 puffs Documented by: [id number] Admin: 11/21/18 08:15 Dose: 1 puffs Documented by: [id number] Admin: 11/20/18 08:27 Dose: 1 puffs Documented by: [id number] Admin: 11/19/18 08:48 Dose: 1 puffs Documented by: [id number] Admin: 11/18/18 08:14 Dose: 1 puffs Documented by: [id number] Tramadol HCl (Ultram) 50 mg PO Q4H PRN PRN Reason: Pain Stop: 12/17/18 20:05 Last Admin: 11/30/18 08:11 Dose: 50 mg Documented by: [id number] Admin: 11/30/18 02:45 Dose: 50 mg Documented by: [id number] Admin: 11/29/18 20:33 Dose: 50 mg Documented by: [id number] Admin: 11/29/18 16:15 Dose: 50 mg Documented by: [id number] Admin: 11/29/18 10:46 Dose: 50 mg Documented by: [id number] Admin: 11/29/18 05:59 Dose: 50 mg Documented by: [id number] Admin: 11/29/18 01:56 Dose: 50 mg Documented by: [id number] Admin: 11/28/18 19:35 Dose: 50 mg Documented by: [id number] Admin: 11/28/18 15:27 Dose: 50 mg Documented by: [id number] Admin: 11/28/18 10:55 Dose: 50 mg Documented by: [id number] Admin: 11/28/18 05:56 Dose: 50 mg Documented by: [id number] Admin: 11/28/18 01:18 Dose: 50 mg Documented by: [id number] Admin: 11/27/18 21:32 Dose: 50 mg Documented by: [id number] Admin: 11/27/18 16:09 Dose: 50 mg Documented by: [id number] Admin: 11/27/18 12:27 Dose: 50 mg Documented by: [id number] Admin: 11/27/18 01:05 Dose: 50 mg Documented by: [id number] Admin: 11/26/18 19:50 Dose: 50 mg Documented by: [id number] Admin: 11/26/18 15:48 Dose: 50 mg Documented by: [id number] Admin: 11/26/18 11:17 Dose: 50 mg Documented by: [id number] Admin: 11/26/18 03:59 Dose: 50 mg Documented by: [id number] Admin: 11/26/18 00:03 Dose: 50 mg Documented by: [id number] Admin: 11/25/18 19:37 Dose: 50 mg Documented by: [id number] Admin: 11/25/18 15:33 Dose: 50 mg Documented by: [id number] Admin: 11/24/18 23:40 Dose: 50 mg Documented by: [id number] Admin: 11/24/18 19:26 Dose: 50 mg Documented by: [id number] Admin: 11/24/18 15:05 Dose: 50 mg Documented by: [id number] Admin: 11/24/18 10:12 Dose: 50 mg Documented by: [id number] Admin: 11/24/18 05:32 Dose: 50 mg Documented by: [id number] Admin: 11/23/18 22:23 Dose: 50 mg Documented by: [id number] Admin: 11/23/18 18:13 Dose: 50 mg Documented by: [id number] Admin: 11/23/18 14:08 Dose: 50 mg Documented by: [id number] Admin: 11/23/18 10:06 Dose: 50 mg Documented by: [id number] Admin: 11/23/18 03:40 Dose: 50 mg Documented by: [id number] Admin: 11/22/18 21:03 Dose: 50 mg Documented by: [id number] Admin: 11/22/18 15:58 Dose: 50 mg Documented by: [id number] Admin: 11/22/18 11:59 Dose: 50 mg Documented by: [id number] Admin: 11/22/18 06:42 Dose: 50 mg Documented by: [id number] Admin: 11/22/18 00:42 Dose: 50 mg Documented by: [id number] Admin: 11/21/18 18:10 Dose: 50 mg Documented by: [id number] Admin: 11/21/18 12:25 Dose: 50 mg Documented by: [id number] Admin: 11/21/18 08:05 Dose: 50 mg Documented by: [id number] Admin: 11/21/18 03:12 Dose: 50 mg Documented by: [id number] Admin: 11/20/18 23:15 Dose: 50 mg Documented by: [id number] Admin: 11/20/18 18:29 Dose: 50 mg Documented by: [id number] Admin: 11/20/18 13:51 Dose: 50 mg Documented by: [id number] Admin: 11/20/18 08:23 Dose: 50 mg Documented by: [id number] Admin: 11/19/18 23:28 Dose: 50 mg Documented by: [id number] Admin: 11/19/18 19:17 Dose: 50 mg Documented by: [id number] Admin: 11/19/18 14:37 Dose: 50 mg Documented by: [id number] Admin: 11/19/18 07:48 Dose: 50 mg Documented by: [id number] Admin: 11/19/18 02:32 Dose: 50 mg Documented by: [id number] Admin: 11/18/18 21:05 Dose: 50 mg Documented by: [id number] Admin: 11/18/18 16:48 Dose: 50 mg Documented by: [id number] Admin: 11/18/18 12:45 Dose: 50 mg Documented by: [id number] Admin: 11/18/18 01:12 Dose: 50 mg Documented by: [id number] Warfarin Sodium (Coumadin) 12 mg PO DAILY@1600 EMPERATRIZ Stop: 12/28/18 15:59 Last Admin: 11/29/18 16:17 Dose: 12 mg Documented by: [id number] Admin: 11/28/18 17:05 Dose: 12 mg Documented by: [id number] Discontinued Medications Albuterol (Duoneb) 3 ml INH NOW STA Stop: 11/17/18 16:52 Last Admin: 11/17/18 17:21 Dose: 3 ml Documented by: [id number] Bisacodyl (Dulcolax) 10 mg PO NOW ONE Stop: 11/27/18 21:30 Last Admin: 11/27/18 21:44 Dose: 10 mg Documented by: [id number] Bisacodyl (Dulcolax) 10 mg SD NOW STA Stop: 11/29/18 08:12 Last Admin: 11/29/18 12:37 Dose: Not Given Documented by: [id number] Bisacodyl (Dulcolax) Confirm Administered Dose 10 mg SD .STK-MED ONE Stop: 11/29/18 11:48 Last Admin: 11/29/18 12:14 Dose: Not Given Documented by: [id number] Diphenhydramine HCl (Benadryl Capsule) 25 mg PO NOW ONE Stop: 11/26/18 18:03 Last Admin: 11/26/18 18:14 Dose: 25 mg Documented by: [id number] Furosemide (Lasix) 40 mg IV NOW STA Stop: 11/17/18 16:52 Last Admin: 11/17/18 17:18 Dose: 40 mg Documented by: [id number] Heparin Sodium (Porcine) (Heparin Sodium (Porcine)) 5,000 units SQ Q8 EMPERATRIZ Stop: 12/22/18 21:59 Last Admin: 11/23/18 14:09 Dose: Not Given Documented by: [id number] Admin: 11/23/18 05:48 Dose: 5,000 units Documented by: [id number] Cosigned by: [id number] Admin: 11/22/18 21:42 Dose: 5,000 units Documented by: [id number] Cosigned by: [id number] Heparin Sodium/Dextrose () 1 ea IV Q20M EMPERATRIZ; Protocol Stop: 12/19/18 08:19 Last Admin: 11/19/18 11:19 Dose: 1 ea Documented by: [id number] Admin: 11/19/18 09:03 Dose: 1 ea Documented by: [id number] Hydromorphone HCl (Dilaudid) 1 mg IV NOW ONE Stop: 11/20/18 16:54 Last Admin: 11/20/18 17:10 Dose: 1 mg Documented by: [id number] Hydroxyzine HCl (Vistaril) 25 mg PO Q6H PRN PRN Reason: Itching Stop: 12/17/18 20:05 Last Admin: 11/24/18 13:04 Dose: 25 mg Documented by: [id number] Admin: 11/23/18 22:23 Dose: 25 mg Documented by: [id number] Admin: 11/23/18 11:14 Dose: 25 mg Documented by: [id number] Admin: 11/22/18 19:06 Dose: 25 mg Documented by: [id number] Admin: 11/21/18 21:33 Dose: 25 mg Documented by: [id number] Admin: 11/20/18 22:01 Dose: 25 mg Documented by: [id number] Admin: 11/19/18 21:43 Dose: 25 mg Documented by: [id number] Admin: 11/18/18 22:38 Dose: 25 mg Documented by: [id number] Admin: 11/17/18 22:48 Dose: 25 mg Documented by: [id number] Ceftriaxone Sodium (Rocephin) 1,000 mg in 50 mls @ 100 mls/hr IV NOW STA Stop: 11/17/18 18:24 Last Infusion: 11/17/18 19:35 Dose: 0 mls/hr Documented by: [id number] Admin: 11/17/18 19:05 Dose: 100 mls/hr Documented by: [id number] Phytonadione 5 mg/ Sodium (Chloride) 50.5 mls @ 101 mls/hr IV ONE ONE Stop: 11/17/18 18:59 Last Infusion: 11/17/18 19:45 Dose: 0 mls/hr Documented by: [id number] Admin: 11/17/18 19:14 Dose: 101 mls/hr Documented by: [id number] Furosemide 40 mg/ Syringe 4 mls @ 4 mls/min IV TID EMPERATRIZ Stop: 12/17/18 20:59 Last Admin: 11/21/18 14:53 Dose: 4 mls/min Documented by: [id number] Admin: 11/21/18 08:06 Dose: 4 mls/min Documented by: [id number] Admin: 11/20/18 20:19 Dose: 4 mls/min Documented by: [id number] Admin: 11/20/18 15:26 Dose: 4 mls/min Documented by: [id number] Admin: 11/20/18 08:28 Dose: 4 mls/min Documented by: [id number] Admin: 11/19/18 20:22 Dose: 4 mls/min Documented by: [id number] Admin: 11/19/18 14:37 Dose: 4 mls/min Documented by: [id number] Admin: 11/19/18 08:48 Dose: 4 mls/min Documented by: [id number] Admin: 11/18/18 20:38 Dose: 4 mls/min Documented by: [id number] Admin: 11/18/18 13:50 Dose: 4 mls/min Documented by: [id number] Admin: 11/18/18 08:13 Dose: 4 mls/min Documented by: [id number] Admin: 11/17/18 21:50 Dose: 4 mls/min Documented by: [id number] Ceftriaxone Sodium 1,000 mg/ (Dextrose) 50 mls @ 100 mls/hr IV Q24H [facility] Stop: 11/20/18 17:59 Last Infusion: 11/19/18 18:02 Dose: 0 mls/hr Documented by: [id number] Admin: 11/19/18 17:16 Dose: 100 mls/hr Documented by: [id number] Infusion: 11/18/18 19:33 Dose: 0 mls/hr Documented by: [id number] Admin: 11/18/18 18:46 Dose: 100 mls/hr Documented by: [id number] Heparin Sodium/Dextrose (Heparin Sodium/Dextrose) 25,000 units in 500 mls @ 43 mls/hr IV .[id number] [facility]; Protocol Stop: 12/19/18 11:29 Last Titration: 11/20/18 11:43 Dose: 0 units/hr, 0 mls/hr Documented by: [id number] Cosigned by: [id number] Admin: 11/20/18 09:56 Dose: 2,150 units/hr, 43 mls/hr Documented by: [id number] Cosigned by: [id number] Titration: 11/20/18 09:46 Dose: 2,150 units/hr, 43 mls/hr Documented by: [id number] Cosigned by: [id number] Titration: 11/20/18 08:58 Dose: 2,150 units/hr, 43 mls/hr Documented by: [id number] Cosigned by: [id number] Admin: 11/19/18 22:50 Dose: 2,300 units/hr, 46 mls/hr Documented by: [id number] Cosigned by: [id number] Titration: 11/19/18 22:50 Dose: 2,300 units/hr, 46 mls/hr Documented by: [id number] Cosigned by: [id number] Admin: 11/19/18 12:04 Dose: 2,300 units/hr, 46 mls/hr Documented by: [id number] Cosigned by: [id number] Methylprednisolone 20 mg/ (Syringe) 0.32 mls @ 1.5 mls/min IV ONE ONE Stop: 11/19/18 18:01 Last Admin: 11/19/18 18:22 Dose: 1.5 mls/min Documented by: [id number] Furosemide 60 mg/ Syringe 6 mls @ 4 mls/min IV TID EMPERATRIZ Stop: 12/21/18 20:59 Last Admin: 11/28/18 09:14 Dose: 4 mls/min Documented by: [id number] Admin: 11/27/18 21:30 Dose: 4 mls/min Documented by: [id number] Admin: 11/27/18 14:19 Dose: 4 mls/min Documented by: [id number] Admin: 11/27/18 08:05 Dose: 4 mls/min Documented by: [id number] Admin: 11/26/18 21:17 Dose: 4 mls/min Documented by: [id number] Admin: 11/26/18 13:12 Dose: 4 mls/min Documented by: [id number] Admin: 11/26/18 08:26 Dose: 4 mls/min Documented by: [id number] Admin: 11/25/18 21:14 Dose: 4 mls/min Documented by: [id number] Admin: 11/25/18 13:45 Dose: 4 mls/min Documented by: [id number] Admin: 11/25/18 08:00 Dose: 4 mls/min Documented by: [id number] Admin: 11/24/18 21:06 Dose: 4 mls/min Documented by: [id number] Admin: 11/24/18 14:10 Dose: 4 mls/min Documented by: [id number] Admin: 11/24/18 08:54 Dose: 4 mls/min Documented by: [id number] Admin: 11/23/18 21:40 Dose: 4 mls/min Documented by: [id number] Admin: 11/23/18 14:00 Dose: 4 mls/min Documented by: [id number] Admin: 11/23/18 08:29 Dose: 4 mls/min Documented by: [id number] Admin: 11/22/18 20:58 Dose: 4 mls/min Documented by: [id number] Admin: 11/22/18 13:47 Dose: 4 mls/min Documented by: [id number] Admin: 11/22/18 08:20 Dose: 4 mls/min Documented by: [id number] Admin: 11/21/18 20:55 Dose: 4 mls/min Documented by: [id number] Heparin Sodium (Porcine) 10, (000 units/ Syringe) 10 mls @ 10 mls/min IV NOW ONE Stop: 11/23/18 14:31 Last Admin: 11/23/18 14:42 Dose: 10 mls/min Documented by: [id number] Cosigned by: [id number] Heparin Sodium/Dextrose (Heparin Sodium/Dextrose) 25,000 units in 500 mls @ 57 mls/hr IV .[id number] [facility]; Protocol Stop: 12/23/18 14:29 Last Admin: 11/28/18 09:23 Dose: 2,850 units/hr, 57 mls/hr Documented by: [id number] Cosigned by: [id number] Titration: 11/28/18 08:51 Dose: 2,850 units/hr, 57 mls/hr Documented by: [id number] Cosigned by: [id number] Titration: 11/28/18 07:15 Dose: 2,850 units/hr, 57 mls/hr Documented by: [id number] Cosigned by: [id number] Admin: 11/28/18 00:39 Dose: 3,100 units/hr, 62 mls/hr Documented by: [id number] Cosigned by: [id number] Titration: 11/28/18 00:39 Dose: 0 units/hr, 0 mls/hr Documented by: [id number] Cosigned by: [id number] Titration: 11/27/18 23:37 Dose: 0 units/hr, 0 mls/hr Documented by: [id number] Cosigned by: [id number] Titration: 11/27/18 23:36 Dose: 3,350 units/hr, 67 mls/hr Documented by: [id number] Cosigned by: [id number] Admin: 11/27/18 16:33 Dose: 3,350 units/hr, 67 mls/hr Documented by: [id number] Cosigned by: [id number] Titration: 11/27/18 16:12 Dose: 3,100 units/hr, 62 mls/hr Documented by: [id number] Cosigned by: [id number] Titration: 11/27/18 08:29 Dose: 3,100 units/hr, 62 mls/hr Documented by: [id number] Cosigned by: [id number] Admin: 11/27/18 08:03 Dose: 2,600 units/hr, 52 mls/hr Documented by: [id number] Cosigned by: [id number] Titration: 11/27/18 08:03 Dose: 2,600 units/hr, 52 mls/hr Documented by: [id number] Cosigned by: [id number] Titration: 11/27/18 07:02 Dose: 2,600 units/hr, 52 mls/hr Documented by: [id number] Cosigned by: [id number] Titration: 11/26/18 23:25 Dose: 2,600 units/hr, 52 mls/hr Documented by: [id number] Cosigned by: [id number] Admin: 11/26/18 21:38 Dose: 2,600 units/hr, 52 mls/hr Documented by: [id number] Cosigned by: [id number] Titration: 11/26/18 20:40 Dose: 2,600 units/hr, 52 mls/hr Documented by: [id number] Cosigned by: [id number] Titration: 11/26/18 19:57 Dose: 2,600 units/hr, 52 mls/hr Documented by: [id number] Cosigned by: [id number] Admin: 11/26/18 11:03 Dose: 2,600 units/hr, 52 mls/hr Documented by: [id number] Cosigned by: [id number] Titration: 11/26/18 11:03 Dose: 2,600 units/hr, 52 mls/hr Documented by: [id number] Cosigned by: [id number] Titration: 11/26/18 09:58 Dose: 2,600 units/hr, 52 mls/hr Documented by: [id number] Cosigned by: [id number] Titration: 11/26/18 07:15 Dose: 2,100 units/hr, 42 mls/hr Documented by: [id number] Cosigned by: [id number] Admin: 11/26/18 00:10 Dose: 2,100 units/hr, 42 mls/hr Documented by: [id number] Cosigned by: [id number] Titration: 11/26/18 00:10 Dose: 2,100 units/hr, 42 mls/hr Documented by: [id number] Cosigned by: [id number] Titration: 11/25/18 23:06 Dose: 2,100 units/hr, 42 mls/hr Documented by: [id number] Cosigned by: [id number] Admin: 11/25/18 12:19 Dose: 2,100 units/hr, 42 mls/hr Documented by: [id number] Cosigned by: [id number] Titration: 11/25/18 12:19 Dose: 2,100 units/hr, 42 mls/hr Documented by: [id number] Cosigned by: [id number] Titration: 11/25/18 07:40 Dose: 2,100 units/hr, 42 mls/hr Documented by: [id number] Cosigned by: [id number] Titration: 11/25/18 07:01 Dose: 2,100 units/hr, 42 mls/hr Documented by: [id number] Cosigned by: [id number] Admin: 11/25/18 02:36 Dose: 2,100 units/hr, 42 mls/hr Documented by: [id number] Cosigned by: [id number] Titration: 11/25/18 01:14 Dose: 2,100 units/hr, 42 mls/hr Documented by: [id number] Cosigned by: [id number] Titration: 11/24/18 23:41 Dose: 2,100 units/hr, 42 mls/hr Documented by: [id number] Cosigned by: [id number] Titration: 11/24/18 21:45 Dose: 2,100 units/hr, 42 mls/hr Documented by: [id number] Cosigned by: [id number] Admin: 11/24/18 13:19 Dose: 2,100 units/hr, 42 mls/hr Documented by: [id number] Cosigned by: [id number] Titration: 11/24/18 12:15 Dose: 0 units/hr, 0 mls/hr Documented by: [id number] Cosigned by: [id number] Titration: 11/24/18 07:01 Dose: 2,500 units/hr, 50 mls/hr Documented by: [id number] Cosigned by: [id number] Titration: 11/24/18 05:33 Dose: 2,500 units/hr, 50 mls/hr Documented by: [id number] Cosigned by: [id number] Titration: 11/24/18 04:59 Dose: 0 units/hr, 0 mls/hr Documented by: [id number] Cosigned by: [id number] Titration: 11/24/18 01:19 Dose: 2,750 units/hr, 55 mls/hr Documented by: [id number] Cosigned by: [id number] Admin: 11/24/18 01:16 Dose: 2,750 units/hr, 55 mls/hr Documented by: [id number] Cosigned by: [id number] Titration: 11/24/18 01:05 Dose: 2,750 units/hr, 55 mls/hr Documented by: [id number] Cosigned by: [id number] Titration: 11/23/18 23:11 Dose: 2,750 units/hr, 55 mls/hr Documented by: [id number] Cosigned by: [id number] Titration: 11/23/18 21:56 Dose: 2,750 units/hr, 55 mls/hr Documented by: [id number] Cosigned by: [id number] Admin: 11/23/18 14:40 Dose: 2,250 units/hr, 45 mls/hr Documented by: [id number] Cosigned by: [id number] Heparin Sodium (Porcine) 10, (000 units/ Syringe) 10 mls @ 1 mls/min IV NOW ONE Stop: 11/23/18 22:24 Last Admin: 11/23/18 22:23 Dose: 1 mls/min Documented by: [id number] Cosigned by: [id number] Heparin Sodium (Porcine) 10, (000 units/ Syringe) 10 mls @ 1 mls/min IV 1015 ONE Stop: 11/26/18 10:24 Last Admin: 11/26/18 11:03 Dose: 1 mls/min Documented by: [id number] Cosigned by: [id number] Lorazepam (Ativan) 0.5 mg in 1 mls @ 1 mls/min IV NOW STA Stop: 11/26/18 20:15 Last Admin: 11/26/18 21:12 Dose: 1 mls/min Documented by: [id number] Heparin Sodium (Porcine) 10, (000 units/ Syringe) 10 mls @ 1 mls/min IV 0900 ONE Stop: 11/27/18 09:09 Last Admin: 11/27/18 09:06 Dose: 1 mls/min Documented by: [id number] Cosigned by: [id number] Heparin Sodium (Porcine) 5,000 (units/ Syringe) 5 mls @ 1 mls/min IV ONE ONE Stop: 11/27/18 16:18 Last Admin: 11/27/18 16:54 Dose: 1 mls/min Documented by: [id number] Cosigned by: [id number] Lorazepam (Ativan) 0.25 mg in 0.5 mls @ 0.5 mls/min IV NOW ONE Stop: 11/29/18 11:56 Last Admin: 11/29/18 12:20 Dose: 0.5 mls/min Documented by: [id number] Insulin Aspart (Novolog Flexpen) 0 units SC ACHS EMPERATRIZ Stop: 12/17/18 20:59 Last Admin: 11/29/18 17:35 Dose: 9 units Documented by: [id number] Cosigned by: [id number] Admin: 11/29/18 12:26 Dose: 8 units Documented by: [id number] Cosigned by: [id number] Admin: 11/29/18 08:25 Dose: 6 units Documented by: [id number] Cosigned by: [id number] Admin: 11/28/18 20:53 Dose: 3 units Documented by: [id number] Cosigned by: [id number] Admin: 11/28/18 17:19 Dose: 9 units Documented by: [id number] Cosigned by: [id number] Admin: 11/28/18 13:19 Dose: 11 units Documented by: [id number] Cosigned by: [id number] Admin: 11/28/18 09:22 Dose: 12 units Documented by: [id number] Cosigned by: [id number] Admin: 11/27/18 21:46 Dose: 14 units Documented by: [id number] Cosigned by: [id number] Admin: 11/27/18 17:36 Dose: 13 units Documented by: [id number] Cosigned by: [id number] Admin: 11/27/18 12:27 Dose: 9 units Documented by: [id number] Cosigned by: [id number] Admin: 11/27/18 08:03 Dose: 10 units Documented by: [id number] Cosigned by: [id number] Admin: 11/26/18 21:25 Dose: 2 units Documented by: [id number] Cosigned by: [id number] Admin: 11/26/18 17:17 Dose: 10 units Documented by: [id number] Cosigned by: [id number] Admin: 11/26/18 13:12 Dose: 10 units Documented by: [id number] Cosigned by: [id number] Admin: 11/26/18 08:26 Dose: 8 units Documented by: [id number] Cosigned by: [id number] Admin: 11/25/18 21:13 Dose: 4 units Documented by: [id number] Cosigned by: [id number] Admin: 11/25/18 17:35 Dose: 15 units Documented by: [id number] Cosigned by: [id number] Admin: 11/25/18 12:17 Dose: 8 units Documented by: [id number] Cosigned by: [id number] Admin: 11/25/18 07:46 Dose: 10 units Documented by: [id number] Cosigned by: [id number] Admin: 11/24/18 21:07 Dose: 5 units Documented by: [id number] Cosigned by: [id number] Admin: 11/24/18 17:12 Dose: 13 units Documented by: [id number] Cosigned by: [id number] Admin: 11/24/18 12:14 Dose: 9 units Documented by: [id number] Cosigned by: [id number] Admin: 11/24/18 09:16 Dose: 10 units Documented by: [id number] Cosigned by: [id number] Admin: 11/23/18 21:42 Dose: 6 units Documented by: [id number] Cosigned by: [id number] Admin: 11/23/18 17:34 Dose: 11 units Documented by: [id number] Cosigned by: [id number] Admin: 11/23/18 14:09 Dose: Not Given Documented by: [id number] Cosigned by: [id number] Admin: 11/23/18 08:31 Dose: 9 units Documented by: [id number] Cosigned by: [id number] Admin: 11/22/18 20:59 Dose: 1 units Documented by: [id number] Cosigned by: [id number] Admin: 11/22/18 18:00 Dose: 4 units Documented by: [id number] Cosigned by: [id number] Admin: 11/22/18 12:16 Dose: 5 units Documented by: [id number] Cosigned by: [id number] Admin: 11/22/18 08:20 Dose: 8 units Documented by: [id number] Cosigned by: [id number] Admin: 11/21/18 20:51 Dose: 300 units Documented by: [id number] Cosigned by: [id number] Admin: 11/21/18 18:06 Dose: 5 units Documented by: [id number] Cosigned by: [id number] Admin: 11/21/18 12:16 Dose: 5 units Documented by: [id number] Cosigned by: [id number] Admin: 11/21/18 08:07 Dose: 6 units Documented by: [id number] Cosigned by: [id number] Admin: 11/20/18 20:21 Dose: Not Given Documented by: [id number] Cosigned by: [id number] Admin: 11/20/18 17:13 Dose: 11 units Documented by: [id number] Cosigned by: [id number] Admin: 11/20/18 12:09 Dose: 12 units Documented by: [id number] Cosigned by: [id number] Admin: 11/20/18 08:34 Dose: 8 units Documented by: [id number] Cosigned by: [id number] Admin: 11/19/18 21:33 Dose: 3 units Documented by: [id number] Cosigned by: [id number] Admin: 11/19/18 17:32 Dose: 8 units Documented by: [id number] Cosigned by: [id number] Admin: 11/19/18 12:08 Dose: 8 units Documented by: [id number] Cosigned by: [id number] Admin: 11/19/18 08:57 Dose: 6 units Documented by: [id number] Cosigned by: [id number] Admin: 11/18/18 21:05 Dose: Not Given Documented by: [id number] Cosigned by: [id number] Admin: 11/18/18 16:53 Dose: 6 units Documented by: [id number] Cosigned by: [id number] Admin: 11/18/18 11:58 Dose: 12 units Documented by: [id number] Cosigned by: [id number] Admin: 11/18/18 08:22 Dose: 9 units Documented by: [id number] Cosigned by: [id number] Admin: 11/17/18 21:51 Dose: 7 units Documented by: [id number] Cosigned by: [id number] Insulin Glargine (Lantus Solostar Pen) 10 units SQ ONE ONE Stop: 11/29/18 21:46 Last Admin: 11/29/18 22:32 Dose: 10 units Documented by: [id number] Cosigned by: [id number] Ipratropium [place] (Atrovent 0.02% 0.5mg/2.5ml) 0.5 mg INH Q6R EMPERATRIZ Stop: 12/23/18 19:59 Last Admin: 11/26/18 07:13 Dose: Not Given Documented by: [id number] Admin: 11/26/18 01:12 Dose: Not Given Documented by: [id number] Admin: 11/25/18 19:28 Dose: Not Given Documented by: [id number] Admin: 11/25/18 14:12 Dose: Not Given Documented by: [id number] Admin: 11/25/18 07:18 Dose: 0.5 mg Documented by: [id number] Admin: 11/25/18 02:25 Dose: Not Given Documented by: [id number] Admin: 11/24/18 19:23 Dose: 0.5 mg Documented by: [id number] Admin: 11/24/18 13:46 Dose: 0.5 mg Documented by: [id number] Admin: 11/24/18 07:10 Dose: 0.5 mg Documented by: [id number] Admin: 11/24/18 02:02 Dose: Not Given Documented by: [id number] Admin: 11/23/18 19:58 Dose: 0.5 mg Documented by: [id number] Levalbuterol HCl (Xopenex 0.63 Mg/3 Ml Neb) 0.63 mg NEB Q6R EMPERATRIZ Stop: 12/23/18 19:59 Last Admin: 11/26/18 07:13 Dose: Not Given Documented by: [id number] Admin: 11/26/18 01:12 Dose: Not Given Documented by: [id number] Admin: 11/25/18 19:28 Dose: Not Given Documented by: [id number] Admin: 11/25/18 14:12 Dose: Not Given Documented by: [id number] Admin: 11/25/18 07:18 Dose: 0.63 mg Documented by: [id number] Admin: 11/25/18 02:26 Dose: Not Given Documented by: [id number] Admin: 11/24/18 19:23 Dose: 0.63 mg Documented by: [id number] Admin: 11/24/18 13:46 Dose: 0.63 mg Documented by: [id number] Admin: 11/24/18 07:10 Dose: 0.63 mg Documented by: [id number] Admin: 11/24/18 02:02 Dose: Not Given Documented by: [id number] Admin: 11/23/18 19:58 Dose: 0.63 mg Documented by: [id number] Lorazepam (Ativan) 0.5 mg PO NOW STA Stop: 11/26/18 19:58 Last Admin: 11/26/18 20:40 Dose: Not Given Documented by: [id number] Lorazepam (Ativan) 0.5 mg PO NOW STA Stop: 11/27/18 21:18 Last Admin: 11/27/18 21:43 Dose: 0.5 mg Documented by: [id number] Lorazepam (Ativan) 0.5 mg PO NOW STA Stop: 11/29/18 11:03 Last Admin: 11/29/18 12:59 Dose: Not Given Documented by: [id number] Miscellaneous (Levalbuterol/Ipratropium 0.63mg) 1 ea NEB Q6R [facility] Stop: 12/23/18 17:14 Last Admin: 11/23/18 17:21 Dose: Not Given Documented by: [id number] Morphine Sulfate (Morphine Sulfate) 4 mg IV Q30M PRN PRN Reason: Pain Stop: 12/01/18 16:50 Last Admin: 11/17/18 19:14 Dose: 4 mg Documented by: [id number] Admin: 11/17/18 17:18 Dose: 4 mg Documented by: [id number] Phytonadione (Mephyton) 5 mg PO NOW STA Stop: 11/17/18 17:57 Last Admin: 11/17/18 19:51 Dose: Not Given Documented by: [id number] Polyethylene Glycol (Miralax Powder Packet) Confirm Administered Dose 17 gm .ROUTE .STK-MED ONE Stop: 11/18/18 15:38 Last Admin: 11/18/18 15:40 Dose: 17 gm Documented by: [id number] Potassium Chloride (Klor-Con M10) 30 meq PO 0845 ONE Stop: 11/19/18 08:46 Last Admin: 11/19/18 09:59 Dose: 30 meq Documented by: [id number] Potassium Chloride (Klor-Con M10) 30 meq PO NOW STA Stop: 11/21/18 16:24 Last Admin: 11/21/18 19:09 Dose: 30 meq Documented by: [id number] Potassium Chloride (Klor-Con M10) 20 meq PO NOW STA Stop: 11/23/18 07:38 Last Admin: 11/23/18 08:29 Dose: 20 meq Documented by: [id number] Potassium Chloride (Klor-Con M20) 20 meq PO NOW STA; Protocol Stop: 11/23/18 11:37 Last Admin: 11/23/18 14:02 Dose: 20 meq Documented by: [id number] Prednisone (Prednisone) 40 mg PO DAILY [facility] Stop: 12/23/18 17:44 Last Admin: 11/28/18 09:16 Dose: 40 mg Documented by: [id number] Admin: 11/27/18 08:06 Dose: 40 mg Documented by: [id number] Admin: 11/26/18 08:26 Dose: 40 mg Documented by: [id number] Admin: 11/25/18 07:45 Dose: 40 mg Documented by: [id number] Admin: 11/24/18 08:59 Dose: 40 mg Documented by: [id number] Admin: 11/23/18 18:13 Dose: 40 mg Documented by: [id number] Senna/Docusate Sodium (Senokot S) 2 tab PO NOW STA Stop: 11/27/18 21:18 Last Admin: 11/27/18 22:44 Dose: Not Given Documented by: [id number] Sodium Biphosphate/Sodium Phosphate (Fleet Enema) 132 ml SD NOW STA Stop: 11/29/18 08:12 Last Admin: 11/29/18 14:29 Dose: 132 ml Documented by: [id number] Sodium Biphosphate/Sodium Phosphate (Fleet Enema) Confirm Administered Dose 132 ml SD .STK-MED ONE Stop: 11/29/18 13:59 Last Admin: 11/29/18 14:28 Dose: Not Given Documented by: [id number] Tramadol HCl (Ultram) 25 mg PO NOW STA Stop: 11/17/18 18:21 Last Admin: 11/17/18 18:53 Dose: Not Given Documented by: [id number] Warfarin Sodium (Coumadin) 5 mg PO DAILY@1600 EMPERATRIZ Stop: 12/18/18 15:59 Last Admin: 11/26/18 15:39 Dose: 5 mg Documented by: [id number] Admin: 11/25/18 15:26 Dose: 5 mg Documented by: [id number] Admin: 11/24/18 16:18 Dose: 5 mg Documented by: [id number] Admin: 11/23/18 16:40 Dose: 5 mg Documented by: [id number] Admin: 11/22/18 15:54 Dose: 5 mg Documented by: [id number] Admin: 11/21/18 16:16 Dose: 5 mg Documented by: [id number] Admin: 11/20/18 15:29 Dose: 5 mg Documented by: [id number] Admin: 11/19/18 17:15 Dose: 5 mg Documented by: [id number] Admin: 11/18/18 16:55 Dose: 5 mg Documented by: [id number] Warfarin Sodium (Coumadin) 2.5 mg PO TODAY@1700 [facility] Stop: 11/24/18 17:01 Last Admin: 11/24/18 17:13 Dose: 2.5 mg Documented by: [id number] Warfarin Sodium (Coumadin) 5 mg PO NOW ONE Stop: 11/26/18 17:31 Last Admin: 11/26/18 18:14 Dose: 5 mg Documented by: [id number] Warfarin Sodium (Coumadin) 10 mg PO DAILY@1600 [facility] Stop: 12/27/18 15:59 Last Admin: 11/27/18 16:29 Dose: 10 mg Documented by: [id number] Description This is a 21 electrode EEG with a single channel dedicated to limited EKG. The electrodes were placed in accordance with the International 10-20 system. There was moderate technical limitations due to diffuse muscle artifact (tech reported patient was tense) At the start of the recording the patient was in an awake state. Background was well organized and composed of symmetric mixed alpha and beta frequencies. There was a symmetric moderate amplitude 8-9 Hz posterior dominant rhythm that was reactive to eye opening and closure. Hyperventilation was not done. Intermittent photic stimulation at various frequencies produced no abnormalities. There was no state changes or sleep transients. Interpretation This is a normal awake only routine EEG. There was no electrographic seizures or epileptiform discharges. Clinical Correlation A normal EEG does not rule out epilepsy if there is a strong clinical suspicion. There was moderate technical limitations to this EEG secondary to diffuse muscle artifact.
[2018-11-30] MEDS: CYCLOBENZAPRINE HCL 10 MG TAB PO PRN (17:06)
[2018-11-30] MEDS: WARFARIN SOD 6 MG TAB PO SCH (17:07)
[2018-11-30] MEDS ORDERED: LORazepam 0.5 MG/1 ML VIAL IV ONE (17:09)
--- NOTE | 2018-11-30 19:24 | Cardiology Progress Note ---
Date of Service November 30, 2018 Assessment & Plan (1) Acute diastolic CHF (congestive heart failure), NYHA class 4: (2) Morbid obesity: (3) HTN (hypertension): Improving will optimize medical regimen. Increase Toprol-XL to 25 mill grams twice per day increase hydralazine to 12.5 mg twice daily Patient anticipates transfer to rehab in a.m. Subjective Patient seen and examined at the bedside, chart, laboratory studies reviewed. Blood pressures trending towards better control patient's had good progress with diuresis Physical Exam Vital Signs (Past 24 Hours): Last Vital Signs Temp 36.6 C 11/30/18 14:43 Pulse 92 H 11/30/18 14:43 Resp 16 11/30/18 14:43 BP 134/73 11/30/18 14:43 Pulse Ox 86 L 11/30/18 15:19
[2018-11-30] MEDS: ENOXAPARIN INJ 120 MG/0.8 ML SYR SQ SCH (20:34)
[2018-11-30] MEDS ORDERED: INSULIN GLARGINE SOLOSTAR 100 UNITS/ML 3 ML PEN SQ SCH (21:00)
[2018-12-01] MEDS: OXYCODONE HCL IR 5 MG TAB (IMMEDIATE RELEASE) PO PRN ×2 (00:01→06:02)
[2018-12-01] MEDS: TRAMADOL HCL 50 MG TABLET PO PRN ×2 (02:37→08:30)
[2018-12-01] MEDS ORDERED: MICONAZOLE NITRATE POWDER 43 GM EXT PRN (03:14)
[2018-12-01 07:58] VITALS: PULSE 77; TEMP 98.1; O2SAT 98
[2018-12-01] MEDS: ONDANSETRON INJ 2 MG/ML 2 ML VIAL IV PRN (08:30)
[2018-12-01] MEDS: MoRPHine SULFATE CR 15 MG TABCR PO SCH (08:30)
[2018-12-01] MEDS: SUCRALFATE 1 GM/10 ML UDC PO SCH (08:31)
[2018-12-01] MEDS: TAMSULOSIN HCL 0.4 MG CAP PO SCH (08:32)
[2018-12-01] MEDS: CYCLOBENZAPRINE HCL 10 MG TAB PO PRN (08:32)
[2018-12-01] MEDS: MAGNESIUM OXIDE 400 MG TAB PO SCH (08:32)
[2018-12-01] MEDS: POTASSIUM CHLORIDE 10 MEQ TABCR PO SCH (08:32)
[2018-12-01] MEDS: DULOXETINE HCL 60 MG CAP PO SCH (08:32)
[2018-12-01] MEDS: SPIRONOLACTONE 25 MG TAB PO SCH (08:33)
[2018-12-01] MEDS: FUROSEMIDE 20 MG TAB PO SCH (08:33)
[2018-12-01] MEDS: HydrALAZINE 10 MG TAB PO SCH (08:33)
[2018-12-01] MEDS: cloNIDine HCl 0.1 MG TAB PO SCH (08:34)
[2018-12-01] MEDS: GABAPENTIN 300 MG CAP PO SCH (08:34)
[2018-12-01] MEDS: predniSONE 10 MG TABLET PO SCH (08:35)
[2018-12-01] MEDS: PANTOprazole 40 MG TAB PO SCH (08:35)
[2018-12-01] MEDS: TIOTROPIUM BROMIDE 5 PUFF/90 MCG INH INH SCH (08:35)
[2018-12-01] MEDS: METOPROLOL SUCC 25MG EXT REL TAB PO SCH (08:35)
[2018-12-01] MEDS: ENOXAPARIN INJ 120 MG/0.8 ML SYR SQ SCH (08:36)
[2018-12-01] MEDS: NICOTINE 7 MG/24 HR TDSY TD SCH (08:36)
[2018-12-01] MEDS: ISOSORBIDE DINITRATE 10 MG TAB PO SCH (08:38)
--- NOTE | 2018-12-01 09:13 | Hospitalist Progress Note ---
Date of Service December 01, 2018 Assessment & Plan (1) Shortness of breath: Possible mild COPD exacerbation with CHF decompensation Continue Prednisone Taper Continue Nebs q6h PRN Continue home inhalers (2) Acute diastolic CHF (congestive heart failure), NYHA class 4: Management as below (3) CHF exacerbation: Acute Diastolic CHF exacerbation Likely due to non compliance from fluid restriction CXR:Mildly low lung volumes with minimal bibasilar atelectasis suspected. Cardiomegaly. No yeimi pulmonary edema. on admission showed mild low lung volumes with minimal bibasilar atelectasis suspected. Continue diuretics as per Cardiology Monitor I/Os, daily weight, fluid and salt restriction Appreciate cardiology Input (4) Episode of shaking: Patient had an episode of shaking with feeling of fainting episode during physical therapy EEG:normal awake only routine EEG Appreciate Neurology--Dr. Cisneros Input No recurrence of symptoms Recommended CTA head and neck as outpatient Needs follow up with Neurology upon discharge (5) Supratherapeutic INR: presented on INR > 10 Coumadin was kept on hold INR 1.3 today Continue Coumadin and Lovenox bridge till INR is therapeutic (6) Pulmonary embolism: Continue coumadin Monitor INR (7) Hypoventilation associated with obesity: On Supplemental Oxygen at bedtime Continue Oxygen (8) Tobacco abuse disorder: Nicotine patch [employer] to quit smoking (9) Diastolic CHF, acute: Volume status improved (10) Morbid obesity: BMI 58.6 Non compliant [employer] healthy lifestyle changes (11) HTN (hypertension): Stable Increase Toprol-XL to 25 mg BID Increase hydralazine to 12.5 mg BID (12) Chronic pain disorder: H/O Narcotic pain medication dependency /abuse Continue home meds Also on gabapentin 900mg TID Constipation Continue Bowel regimen Code Status Full Code DVT Px: on Coumadin Disposition: Discharged to Acute Rehab Facility Today Subjective Patient is seen and examined at bedside States feeling anxious about getting discharged Denies chest pain, SOB, dizziness, abd pain Has chronic back pain No other complaints Physical Exam Vital Signs (Past 24 Hours): Last Vital Signs Temp 36.7 C 12/01/18 07:00 Pulse 77 12/01/18 07:00 Resp 20 12/01/18 07:00 BP 144/84 H 12/01/18 07:00 Pulse Ox 98 12/01/18 07:00 Physical Exam: Physical Exam: Vitals signs as noted above General Appearance:Morbidly Obese, no apparent distress Head: normocephalic, Atraumatic Eyes: normal inspection, EOMI Neck: supple, Trachea midline Respiratory/Chest: Decreased breath sounds, CTA Cardiovascular: S1, S2, No murmur Abdomen/GI:Soft, Non tender, Bowel sounds present Extremities/Musculoskelatal:normal inspection, chronic B/L LE edema Neurologic/Psych:AAOX3, grossly no focal neurological deficits Skin: normal color, warm (1) CHF exacerbation Heart failure type: unspecified Qualified Code(s): I50.9 - Heart failure, unspecified
--- NOTE | 2018-12-01 09:13 | Discharge Summary ---
Date of Service December 01, 2018 Admission HPI Per Admitting Provider The patient is a 48 yo male, known to us from previous hospitalization on , and consultations on the medical floor. He has multiple chronic medical conditions listed below. He was recently hospitalized here in late September to early October for similar complaints of weight gain in the setting of heart failure, and was sent to [facility] for rehab on 10/27/18. He says that he did well there and felt great when he went home, but after only a few days had put on excessive weight, was having SOB, and so represented to the ED, and found again to be in heart failure and admitted medically. During this stay he has been complaining of anxiety, and so a consult was placed. At the time of my assessment, the patient is sitting up in bed watching TV in a darkened room. His nurse tells me he just received a prn Vistaril for anxiety. Bill tells me that he has been doing "really well" from a psychiatric standpoint, describing good mood and anxiety prior to this string of hospitalizations starting in September. He says that over the last year he has put on 130 lbs and at home is having trouble doing the simplest of tasks such as getting up out of his chair. He admits to anxiety about his health, but has found support and reassurance through his home health nurse who comes three days per week. He denies any problems at home, saying that his relationship with Estrella is good, as are his kids and grandkids. Here in the hospital he describes feeling anxious "like a panic attack" with symptoms of racing heart, shaking and shortness of breath. He says that he frequently experiences this with his PE's and can't really differentiate what is true anxiety and what is PE. I ask if he has used any behavioral strategies to manage his symptoms ie grounding exercising, breathing exercises, distraction, but he says no. He is not currently in any psychiatric treatment and has his meds managed by his PCP. He has been on Naltrexone from Dr. Del Cid, then Dr. Lucia for several years now, but stopped during his hospitalizations due to the need for narcotic. He says that Naltrexone "has really turned me around" and says that "I'm not doing those things I was before". He wants to get back on Naltrexone, but is scheduled to have foot surgery perhaps next month and will likely be on opiates. He denies that he is having any SI/HI, any aud/vis hallucinations, and believes that he is dealing with both his mental health and his physical ailments "better than I used to". Admission Exam Per Admitting Provider Constitutional: WD/WN, vitals as above + obese Eyes: PERRL, conjunctivae normal, anicteric sclerae EOM intact bilaterally ENMT: external ear and nose normal, oropharynx normal Neck: normal visual inspection and trachea midline Respiratory: normal respiratory effort, lungs clear to auscultation Cardiovascular: Rate/Rhythm: regular rate and regular rhythm Gastrointestinal (Abdomen): normal bowel sounds, soft, nontender, no hepatosplenomegaly Musculoskeletal: Head/Neck/Chest: normocephalic and head atraumatic Back has bruise or medial to right scapula, bilateral lower extremity with some leg edema and some redness, some mild skin excoriations, has right ankle deformity that was secondary to fracture in the past Neurologic: PERRL, EOMI, accommodation nl, no face palsy, no dysarthria Psychiatric: A+Ox3, euthymic affect Principal Diagnosis Discharge Information Discharge Diagnosis DECOMPENSATED CHF WITH DIASTOLIC DYSFUNCTION , HX OF PE Discharge Goals Decrease discomfort,Therapeutic intervention, Improve disease control Discharge Activity Limitations As commented below Discharge Data Allergies Allergy/AdvReac Type Severity Reaction Status Date / Time fentanyl Allergy Intermediate RASH/HIVES/SKIN Verified 11/17/18 17:38 REDNESS acetaminophen AdvReac Intermediate "THEY TOLD Verified 11/17/18 17:38 ME I GET KIDNEY DISEASE" valproic acid AdvReac Intermediate PANCREATITS Verified 11/17/18 17:38 Consultations 11/17/18 17:56 ED Decision to Admit Stat 11/22/18 08:00 Consult Cardiology Routine 11/24/18 12:12 Consult Psychiatry Routine 11/29/18 11:04 Consult Neurology Routine Procedures Performed Head CT: No acute intracranial abnormality. CXR: 1. Mildly low lung volumes with minimal bibasilar atelectasis suspected. 2. Cardiomegaly. No yeimi pulmonary edema. Ordered Studies 11/17/18 16:51 CT head/brain wo con Stat Hospital Course (1) Shortness of breath: Possible mild COPD exacerbation with CHF decompensation Continue Prednisone Taper Continue Nebs q6h PRN Continue home inhalers (2) Acute diastolic CHF (congestive heart failure), NYHA class 4: Management as below (3) CHF exacerbation: Acute Diastolic CHF exacerbation Likely due to non compliance from fluid restriction CXR:Mildly low lung volumes with minimal bibasilar atelectasis suspected. Cardiomegaly. No yeimi pulmonary edema. on admission showed mild low lung volumes with minimal bibasilar atelectasis suspected. Continue diuretics as per Cardiology Monitor I/Os, daily weight, fluid and salt restriction Appreciate cardiology Input (4) Episode of shaking: Patient had an episode of shaking with feeling of fainting episode during physical therapy EEG:normal awake only routine EEG Appreciate Neurology--Dr. Cisneros Input No recurrence of symptoms Recommended CTA head and neck as outpatient Needs follow up with Neurology upon discharge (5) Supratherapeutic INR: presented on INR > 10 Coumadin was kept on hold INR 1.3 today Continue Coumadin and Lovenox bridge till INR is therapeutic (6) Pulmonary embolism: Continue coumadin Monitor INR (7) Hypoventilation associated with obesity: On Supplemental Oxygen at bedtime Continue Oxygen (8) Tobacco abuse disorder: Nicotine patch [employer] to quit smoking (9) Diastolic CHF, acute: Volume status improved (10) Morbid obesity: BMI 58.6 Non compliant [employer] healthy lifestyle changes (11) HTN (hypertension): Stable Increase Toprol-XL to 25 mg BID Increase hydralazine to 12.5 mg BID Chronic pain disorder: H/O Narcotic pain medication dependency /abuse Continue home meds Also on gabapentin 900mg TID Constipation Continue Bowel regimen Code Status Full Code DVT Px: on Coumadin Disposition: Discharged to Acute Rehab Facility Today (12) Chronic pain disorder: Total Time Total Time Spent Total Time Spent (In Minutes): 42 minutes Total Time Includes: Examination of the Patient, Discharge Planning, Medication Reconciliation, Communication With Other Providers and Other Discharge Plan Discharge Items Patient Disposition: Transfer Inpatient Rehab Fac Reason For Visit: SOB,FLUID OVERLAOD,SUPRATHERAPEUTIC INR,CHRONIC PE Discharge Diagnosis: DECOMPENSATED CHF WITH DIASTOLIC DYSFUNCTION , HX OF PE Condition: Good Discharge Goals: Decrease discomfort, Improve disease control and Therapeutic intervention Activity: As commented below Activity Comment: CONTINUE PHYSICAL THERAPY /OCCUPATIONAL THERAPY AT [facility] Exercise/Sports: Gradually increase as tolerated Non-emergency contact: Primary Care Provider, [employer] Manufacturing Supervisor and Neurologist Call non-emergency contact if: you have any medication questions, your symptoms worsen, your pain is not controlled, your pain is worsening, your pain is unusual for you and you have a fever Follow-up/Referrals: Owen Hogan [Primary Care Provider] - (Please make an appointment with your primary care physician within 7 days following discharge from Rehab) Diet: Heart Healthy and Low Sodium (2gm) Fluids: 1800ml (7 cups) Addtl Provider Instructions: Follow up with your PCP in 1 week after being discharged from rehab facility Follow up with your Hydrochloric Manufacturing Supervisor in 2-4 weeks Follow up with your Neurologist as outpatient as advised Get CT Angiography of head and Neck as outpatient as advised by your neurologist Please Check INR and Factor 10A level in 1-2 days .Dose Coumadin accordingly Call your Primary Care doctor if any of the following symptoms or problems start or get worse: * Shortness of breath or difficulty breathing * Wake up at night short of breath * Chest pain * Cough * Swelling of your hands, feet, or legs * More fatigued or tired with your normal activity * Palpitations - sudden fast heart beats WEIGHT * Weigh yourself every morning after using the bathroom. * Use the same scale. * Wear the same amount of clothing. * Write your weight down on a chart. * Call your Primary Care doctor if you gain more than 2-3 pounds in 1-2 days. MEDICATIONS * Use this discharge instruction sheet for medication instructions. * Take your medications at the time your doctor ordered. * Do not skip a dose of your medicines. * If you miss a dose of medicine, take it as soon as possible, but DO NOT DOUBLE A DOSE. * Read your medicine information when you get home. * Know all of the side effects of your medicine. If in doubt, ask your pharmacist * Call your Primary Care doctor's office if you have any side effects. * Be sure all of your doctors know what medicine and herbs you take (including cold, flu, and herbal medicine). Take the following with you to your follow-up doctor appointments: * Weight Chart * Medication List * List of questions Do not drink excessive alcohol, beer or wine. Prescriptions: New isosorbide dinitrate 10 mg Tablet 10 mg PO BID 30 Days Qty: 60 RF: 0 ipratropium-albuterol 0.5 mg-3 mg(2.5 mg base)/3 mL Solution For Nebulization 3 ml NEB Q4R PRN (Reason: WHEEZE) 30 Days Qty: 30 RF: 0 polyethylene glycol 3350 [Miralax] 17 gram Powder In Packet 17 g PO DAILY PRN (Reason: CONSTIPATION) Qty: 30 RF: 0 spironolactone 25 mg Tablet 50 mg PO BID17 30 Days Qty: 60 RF: 0 magnesium oxide 400 mg (241.3 mg magnesium) Tablet 400 mg PO QAM 30 Days Qty: 30 RF: 0 tamsulosin 0.4 mg Capsule 0.4 mg PO QAM 30 Days Qty: 30 RF: 0 nitroglycerin [Nitrostat] 0.4 mg Tablet, Sublingual 0.4 mg Sublingual PRN PRN (Reason: CHEST PAIN) Qty: 30 RF: 0 docusate sodium 100 mg Capsule 100 mg PO BID PRN (Reason: CONSTIPATION) Qty: 60 RF: 0 nicotine [Nicoderm CQ] 7 mg/24 hr Patch 24 Hour 7 mg Transdermal QAM 30 Days Qty: 30 RF: 0 Spiriva with HandiHaler 18 mcg Capsule, W/Inhalation Device 1 puff Inhalation QAM 30 Days Qty: 30 RF: 0 furosemide [Lasix] 40 mg tablet 60 mg PO TID 30 Days Qty: 135 RF: 0 morphine 15 mg Tablet Extended Release 15 mg PO BID 5 Days Qty: 10 RF: 0 oxycodone 5 mg Tablet 10 mg PO Q6 PRN (Reason: pain) 5 Days Qty: 30 RF: 0 prednisone 10 mg Tablet 30 mg PO UD 9 Days Qty: 27 RF: 0 Lantus Solostar U-100 Insulin 100 unit/mL (3 mL) Insulin Pen 10 unit subcut HS 30 Days Qty: 1 RF: 0 tramadol 50 mg Tablet 50 mg PO Q4H PRN (Reason: pain) 5 Days Qty: 20 RF: 0 warfarin 5 mg tablet 15 mg PO DAILY@1600 15 Days Qty: 45 RF: 0 enoxaparin [Lovenox] 120 mg/0.8 mL Syringe 120 mg subcut Q12H 3 Days Qty: 4.8 RF: 0 metoprolol succinate 25 mg Tablet Extended Release 24 Hr 25 mg PO BID 30 Days Qty: 60 RF: 0 hydralazine 10 mg Tablet 12.5 mg PO BID 30 Days Qty: 75 RF: 0 Continued clonidine HCl 0.1 mg tablet 0.1 mg PO BID RF: 0 omeprazole 20 mg capsule,delayed release(DR/EC) 20 mg PO QAM RF: 0 hydroxyzine HCl 25 mg tablet 25 mg PO Q6H PRN (Reason: Itching) RF: 0 fluticasone 50 mcg/actuation spray,suspension 2 spray Intranasal QAM RF: 0 trazodone 50 mg Tablet 50 mg PO HS PRN (Reason: Insomnia) RF: 0 potassium chloride 10 mEq tablet,ER particles/crystals 10 meq PO QAM RF: 0 albuterol sulfate [Ventolin HFA] 90 mcg/actuation HFA aerosol inhaler 2 puff Inhalation Q4H PRN (Reason: Shortness Of Breath Or Wheezing) RF: 0 cyclobenzaprine 10 mg Tablet 10 mg PO TID PRN (Reason: Muscle Spasm) RF: 0 morphine 15 mg tablet extended release 15 mg PO BID RF: 0 aspirin [Ecotrin Low Strength] 81 mg tablet,delayed release (DR/EC) 81 mg PO QAM RF: 0 oxycodone 5 mg tablet 10 mg PO Q6 PRN (Reason: pain) RF: 0 duloxetine 60 mg capsule,delayed release(DR/EC) 60 mg PO QAM RF: 0 Changed tramadol 50 mg Tablet 50 mg PO Q6 PRN (Reason: Pain) Qty: 0 RF: 0 Stand-Alone Forms: [facility] Discharge Orders: Discharge Order (Routine); Ordered 12/01/18 Ordered By: Dipesh Wright Skilled Items Patient informed of condition?: Yes DNR: No Discharge Level of Care: Acute rehab Communicable Disease: No Discharge Prognosis: Stable Admission Data Admit Date/Time: 11/17/18 18:35 Attending Provider: Dipesh Wright Admit Provider: Aram Gillette Primary Care Provider: Owen Hogan Other Providers: Romulo Clark ; Aram Gillette ; Jacob Penn ; Roberto Gregorio ; [place] ; Vesna Lawson ; Demetri Bone ; Dwayne Moore. ; Brianne Alfaro ; Yvon Harris ; Evelin Watson ; Flory Alfaro ; Siva Ambrosio ; Camille Espinoza ; Manuel Catalan I ; Laurie Mahmood ; Sully Swanson. ; Kylah Poon ; Isauro Mays ; Roxy Bradshaw ; Brayan Cisneros III ; Augustus Vasquez Service: Medical Other Interventions: Discharge Summary Assessment (RN) Last Done: 12/01/18 10:53 Pending Studies at Discharge: No DC Date/Time DO NOT enter until pt leaves facility: 12/01/18 11:23
[2018-12-01 10:02] LABS: INR 1.3 (0.9-1.1); Prothrombin Time 13.5 Seconds (9.0-12.0)
[2018-12-01] MEDS ORDERED: MoRPHine SULFATE 2 MG/ML CARP IV ONE (10:30)
[2018-12-01] MEDS: INSULIN ASPART 100 UNITS/ML 3 ML PEN SC SCH (10:40)
[2018-12-01 10:55] VITALS: BP 130/81
== END 2018-12-01 11:23 | DRG 292 ==
LOC: ED 16:26 → SUATTDRO 18:35 → 2S 18:35 → 2W 11-22 19:39 → 4W 11-30 21:25

== ENCOUNTER 2018-12-09 21:16 | Observation (INO) ==
[2018-12-09] MEDS ORDERED: fentaNYL citrate 100 MCG/2 ML VIAL IV STA (21:58)
[2018-12-09] MEDS ORDERED: SODIUM CHLORIDE 0.9% 500 ML IV SCH (22:00)
[2018-12-09 22:25] LABS: Basophils # (auto) 0.04 K/uL (0-0.2); Basophils % (auto) 0.3 %; Eosinophils # (auto) 0.33 K/uL (0-0.5); Eosinophils % (auto) 2.3 %; Hematocrit (blood only) 34.1 % (42-52); Hemoglobin 11.3 g/dL (14.0-18.0); Immature Granulocytes % (auto) 2.1 %; Lymphocytes # (auto) 2.48 K/uL (1.2-3.4); Lymphocytes % (auto) 17.3 %; Mean Corpuscular Hgb Conc 33.1 g/dL (32-36); Mean Corpuscular Volume 83.4 fL (80-100); Mean Platelet Volume 10.1 fL (7.4-10.4); Monocytes % (auto) 8.4 %; Neutrophils # (auto) 9.96 K/uL (1.4-6.5); Neutrophils % (auto) 69.6 %; Platelet Count 213 K/uL (130-400); RDW Coefficient of Variation 17.8 % (11.5-14.5); RDW Standard Deviation 54.1 fL (36.4-46.3); Red Blood Count 4.09 M/uL (4.7-6.1); White Blood Count 14.31 K/uL (4.8-10.8)
[2018-12-09 22:37] LABS: Partial Thromboplastin Ratio 1.6; Partial Thromboplastin Time 43.3 Seconds (21.0-31.0); Prothrombin Time 28.5 Seconds (9.0-12.0)
--- NOTE | 2018-12-09 22:37 | XRay Report ---
XR knee LT 3V, XR tibia fibula LT 2V CLINICAL HISTORY: Fall. Left knee and lower leg pain. COMPARISON STUDY: None. FINDINGS: Mild anterolateral soft tissue swelling within the knee and left lower leg. No significant knee effusion. No fracture or dislocation. IMPRESSION: No fracture or dislocation within the left knee or left lower leg. Electronically signed by: Vidal Keller M.D. 12/09/2018 10:35 PM
--- NOTE | 2018-12-09 22:46 | XRay Report ---
XR chest 1V portable HISTORY: fall, hypotension COMPARISON: Chest 12/02/2018. FINDINGS: No pneumothorax. No pleural effusions. The heart remains mildly enlarged. A few left basila r linear densities suggesting subsegmental atelectasis or scarring. This remains unchanged. Otherwise , the lungs are clear. Old, healed left clavicle fracture. IMPRESSION: No significant change compared to the prior study. No acute process. Electronically signed by: Vidal Keller M.D. 12/09/2018 10:45 PM
[2018-12-09 22:55] LABS: Alanine Aminotransferase 34 U/L (12-78); Albumin Level 3.1 gm/dl (3.4-5.0); Aspartate Aminotransferase 15 U/L (15-37); BUN Creatinine Ratio 25.9 (10-20); Blood Urea Nitrogen 44 mg/dl (7-18); Carbon Dioxide 26 mmol/L (21-32); Chloride 100 mmol/L (98-107); Creatinine Clr Calc Pharmacy 97.5 ml/min; Est GFR (African American) 54.8; Est GFR (Non-African American) 47.3; Glucose 129 mg/dl (70-99); Magnesium 2.3 mg/dl (1.8-2.4); Potassium 5.2 mmol/L (3.5-5.1); Sodium 133 mmol/L (136-145)
[2018-12-09 23:05] LABS: Albumin Globulin Ratio 0.9 (0.9-2); Alkaline Phosphatase 85 U/L (45-117); Bilirubin,Total 0.3 mg/dl (0.2-1); Creatine Kinase 63 U/L (39-308); Globulin 3.4 gm/dl (2.5-4.0); Total Protein 6.5 gm/dl (6.4-8.2); Troponin I < 0.015 ng/ml (0-0.045)
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
[2018-12-10 00:02] LABS: Appearance Urine Clear (Clear); Bilirubin Urine Negative (Negative); Blood Urine Negative (Negative); Color Urine Yellow; Glucose Urine UA Negative (Negative); Ketones Urine Negative (Negative); Leukocyte Esterase Urine Negative (Negative); Nitrite Urine Negative (Negative); Protein Urine Negative (Negative); Specific Gravity Urine 1.014 (1.000-1.030); Urobilinogen Urine Negative (Negative)
[2018-12-10] MEDS ORDERED: HYDROmorphone INJ 0.5 MG/0.5 ML SYR ONE (02:21)
--- NOTE | 2018-12-10 02:44 | History and Physical Report ---
DATE OF ADMISSION: 12/10/2018 CHIEF COMPLAINT: Status post fall and hypotension. HISTORY OF PRESENT ILLNESS: This is a 48-year-old male with past medical history significant for Diastolic chf,moderate COPD, tobacco abuse, chronic pain syndrome on chronic narcotics, depression, anxiety, history of pulmonary embolism, on Coumadin, history of drug overdose, GERD, morbid obesity, hypertension. He was recently in the hospital for COPD exacerbation, CHF exacerbation, and was discharged to rehab. He says nurse applied cream to his leg and it was kept on the floor and he tried to go to the bathroom and stepped on the cream and fell on his back and was not able to get up. He had to be lifted up and brought in the ambulance. Complains of severe pain in the right foot, left knee, and back. Imaging studies are unremarkable. The patient was hypotensive, blood pressure in the 80s. He received a fluid bolus in the ER. He currently has systolic blood pressure in the 90s. He complains of his usual headaches, his usual chest pains, his usual shortness of breath and cough here and there. Denies any fever or chills. No nausea, no abdominal pain. Appetite is okay. Normal bowel and bladder movements. No hematuria or hematochezia or burning micturition. Currently resting comfortably, however complains of pain and asks for extra pain medications. ALLERGIES: FENTANYL, ACETAMINOPHEN, VALPROIC ACID. PAST MEDICAL HISTORY: As mentioned above. PAST SURGICAL HISTORY: History of foot surgery, colonoscopy, EGD, lumbar laminectomy. FAMILY HISTORY: Father at age of 88 of heart issues. SOCIAL HISTORY: Currently living in rehab. Lives with significant other and grandchildren. Smokes tobacco, 25 cigarettes per day. No alcohol use. Uses prescription drugs. MEDICATIONS: The patient is on albuterol 2 puffs every 4 hours p.r.n., aspirin 81 mg p.o. daily, bisacodyl 10 mL daily p.r.n., clonidine 0.1 mg p.o. b.i.d., Colace 100 mg p.o. b.i.d., duloxetine 60 mg p.o. a.m., Flonase 2 sprays intranasal daily, Lasix 60 mg p.o. daily, gabapentin 300 mg p.o. t.i.d., hydralazine 12.5 mg p.o. b.i.d., hydroxyzine 25 mg p.o. q.i.d. p.r.n., Lantus 10 units at bedtime, DuoNebs every 4 hours p.r.n., Imdur 10 mg p.o. q. 2 hours, lidocaine patch daily, lisinopril 10 mg p.o. daily, Ativan 1 mg p.o. t.i.d. p.r.n., milk of magnesia daily p.r.n., magnesium oxide 400 mg p.o. daily, metoprolol succinate 25 mg p.o. b.i.d., morphine 15 mg p.o. q. 12 hours, Nicotine patch 7 mg transdermal daily, nitroglycerin 0.4 mg sublingual p.r.n., nystatin application topically b.i.d., Zofran 4 mg p.o. q. 4 hours p.r.n., oxycodone 10 mg p.o. q. 4 hours p.r.n., Protonix 40 mg p.o. q.a.m., MiraLax 17 g p.o. daily, potassium chloride 10 mEq p.o. daily, Senokot-S 1 tablet p.o. daily p.r.n., spironolactone 50 mg p.o. b.i.d., Flomax 0.4 mg p.o. daily, Spiriva 1 capsule inhalation daily, tramadol 50 mg p.o. q. 4 hours p.r.n., Incruse 1 inhalation daily, Coumadin as directed. REVIEW OF SYSTEMS: As per HPI, rest of review of systems negative. PHYSICAL EXAMINATION: GENERAL: The patient is morbidly obese, not in acute distress. VITAL SIGNS: Temperature 36.6, pulse 90, respiratory rate 18, blood pressure when he came in was 89/55, currently 92/67, oxygen 97% on room air. HEENT: No pallor, no icterus. Pupils equal, round, and reactive to light. NECK: No JVD, no neck masses, no carotid bruits. CARDIOVASCULAR: S1, S2 heard, regular rate and rhythm, no murmur, no gallop. RESPIRATORY SYSTEM: Normal AP diameter. No accessory muscle use. No wheezing, no crackles. ABDOMEN: Soft, bowel sounds present. Nontender. No distention. CENTRAL NERVOUS SYSTEM: Cranial nerves II-XII grossly intact, nonfocal. EXTREMITIES: Lower extremity edema present and no erythema seen. LABORATORY DATA: WBC 14, hemoglobin 11.3, hematocrit 34, platelets 213. PT 28.5, INR 3, APTT 43.3. Sodium 133, potassium 5.2, chloride 100, bicarbonate 26, BUN 44, creatinine 1.6, serum glucose 129, calcium 9, magnesium 2.3, total bilirubin 0.3, AST 15, ALT 34, alkaline phosphatase 85, total creatinine kinase 63, troponin I less than 0.015. TSH 1.22. Urinalysis negative. IMAGING DATA: Chest x-ray, no acute findings seen. Tibia, fibula x-ray of the left lower extremity, no acute findings. Left knee, no fracture seen. Await lumbar CT spine and head CT findings. EKG: Normal sinus rhythm with a rate of 90, no significant changes seen. ASSESSMENT AND PLAN: This is a 48-year-old male who presents with fall. 1. Mechanical fall, currently at rehabilitation. While going to bathroom, slipped and fell on his back side. Complains of pain in his back, left knee, and right foot. Imaging studies are unremarkable. The patient also has chronic pain on chronic pain medications. We will place him on IV Dilaudid p.r.n. for today and stop in the morning and monitor in the medical floor. PT and OT when stable and discharge back to rehab when stable. 2. Hypotension. The patient's blood pressure was borderline low on presentation. We will hold his lisinopril and hydralazine, nitrate and Aldactone. Toprol-XL and clonidine with holding parameters. Got a 500 mL bolus in the ER. Will continue with 50 mL per hour until morning and stop and monitor his blood pressure. 3. Acute kidney injury on chronic kidney disease stage III. Baseline creatinine around 1.3 to 1.4, currently with a creatinine of 1.68. Holding lisinopril and Aldactone , on gentle fluids. We will follow labs in the a.m. 4. Hyponatremia, fluids as above. Follow the labs. 5. Hyperkalemia. Holding the lisinopril and potassium supplement and Aldactone . We will give 15gm Kayexalate. Follow the labs in the a.m. 6. History of diabetes, Lantus, insulin sliding scale. Follow blood sugars. 7. History of diastolic congestive heart failure. Continue his home Lasix 60mg po tid for now.Holding Aldactone. On gentle fluids. Monitor for volume overload. 8. History of pulmonary embolism, on Coumadin. INR is 3. We will follow the PT/INR. 9. Hypoventilation associated with obesity, on supplemental oxygen at bedtime. 10. Tobacco use disorder, on nicotine patch. 11. Morbid obesity, needs counseling. 12. Hypertension, currently hypotensive. Toprol and clonidine withholding parameters. On lasix. Hold hydralazine, Imdur, and lisinopril and Aldactone. Monitor the blood pressure. 13. Chronic pain disorder. Continue his home pain medications. 14. Constipation. Bowel regimen. 15. Copd. Home inhlaers and nebs prn. stable currently 16. Deep venous thrombosis prophylaxis, on Coumadin. 17. Disposition: Observation in med/surg tele. Level 1 full code. PT/OT. Discharge back to acute rehab when stable. MTDD
[2018-12-10] MEDS ORDERED: HYDROmorphone INJ 0.5 MG/0.5 ML SYR IV STA ×3 (02:53→11:12)
[2018-12-10] MEDS: OXYCODONE HCL IR 5 MG TAB (IMMEDIATE RELEASE) PO PRN ×3 (02:54→12:18)
[2018-12-10] MEDS ORDERED: NITROGLYCERIN SL 0.4 MG/TAB TAB SL PRN ×2 (03:14)
[2018-12-10] MEDS ORDERED: ONDANSETRON 4 MG OD TAB PO PRN (03:14)
[2018-12-10] MEDS ORDERED: LORazepam 1 MG TAB PO PRN (03:14)
[2018-12-10] MEDS ORDERED: TRAMADOL HCL 50 MG TABLET PO PRN (03:14)
[2018-12-10] MEDS ORDERED: OXYCODONE HCL IR 5 MG TAB (IMMEDIATE RELEASE) PO PRN (03:14)
[2018-12-10] MEDS ORDERED: MAGNESIUM HYDROXIDE SUSP 30 ML UDC PO PRN (03:14)
[2018-12-10] MEDS ORDERED: ISOSORBIDE DINITRATE 10 MG TAB PO SCH ×2 (03:14→07:00)
[2018-12-10] MEDS ORDERED: SODIUM CHLORIDE 0.9% 1000ML 1,000 ML IV SCH (03:14)
[2018-12-10] MEDS ORDERED: DOCUSATE SODIUM/SENNA 50/8.6MG TAB PO PRN (03:14)
[2018-12-10] MEDS ORDERED: SOD PHOSPHATE/SOD BIPHOSPHATE ENEMA 132 ML BTL PR PRN (03:14)
[2018-12-10] MEDS ORDERED: CYCLOBENZAPRINE HCL 10 MG TAB PO PRN (03:14)
[2018-12-10] MEDS ORDERED: HYDROmorphone INJ 0.5 MG/0.5 ML SYR IV PRN (03:14)
[2018-12-10] MEDS ORDERED: WARFARIN SOD 5 MG TAB PO SCH (03:14)
[2018-12-10] MEDS ORDERED: ACETAMINOPHEN 325 MG TAB PO PRN (03:14)
[2018-12-10] MEDS ORDERED: SODIUM POLYSTYRENE SULFONATE 15G/60ML SUSP PO STA (03:14)
[2018-12-10] MEDS ORDERED: ALBUT/IPRATROP 3MG/0.5MG NEB 3 ML VIAL INH PRN (03:14)
[2018-12-10] MEDS ORDERED: ALBUTEROL HFA 8 GM INHALER INH PRN (03:14)
[2018-12-10] MEDS ORDERED: BISACODYL 10 MG SUPP PR PRN (03:14)
[2018-12-10] MEDS ORDERED: POLYETHYLENE (MIRALAX) 17 GM PACK PO PRN (03:14)
[2018-12-10] MEDS ORDERED: ONDANSETRON INJ 2 MG/ML 2 ML VIAL IV PRN (03:14)
[2018-12-10] MEDS ORDERED: CARBOHYDRATES FOR HYPOGLYCEMIA PO PRN (04:00)
[2018-12-10] MEDS ORDERED: GLUCOSE 10 TABS/TUBE PO PRN (04:00)
[2018-12-10] MEDS ORDERED: DEXTROSE 50% 50 ML SYRINGE IV PRN (04:00)
[2018-12-10] MEDS ORDERED: GLUCAGON FOR INJ 1 MG VIAL SQ PRN (04:00)
[2018-12-10] MEDS ORDERED: GLUCOSE 40% GEL 15 GM TUBE PO PRN (04:00)
[2018-12-10 05:50] LABS: Basophils # (auto) 0.03 K/uL (0-0.2); Basophils % (auto) 0.2 %; Eosinophils # (auto) 0.39 K/uL (0-0.5); Eosinophils % (auto) 3.1 %; Hematocrit (blood only) 32.4 % (42-52); Immature Granulocytes # (auto) 0.23 K/uL (0.00-0.02); Immature Granulocytes % (auto) 1.8 %; Lymphocytes # (auto) 2.93 K/uL (1.2-3.4); Lymphocytes % (auto) 23.2 %; Mean Corpuscular Volume 83.5 fL (80-100); Mean Platelet Volume 10.1 fL (7.4-10.4); Monocytes % (auto) 8.7 %; Neutrophils # (auto) 7.96 K/uL (1.4-6.5); Platelet Count 199 K/uL (130-400); RDW Coefficient of Variation 17.8 % (11.5-14.5); RDW Standard Deviation 54.5 fL (36.4-46.3); Red Blood Count 3.88 M/uL (4.7-6.1); White Blood Count 12.64 K/uL (4.8-10.8)
[2018-12-10 05:58] LABS: INR 3.2 (0.9-1.1); Prothrombin Time 29.8 Seconds (9.0-12.0)
--- NOTE | 2018-12-10 06:21 | CT Scan Report ---
HEAD CT NONCONTRAST CT DOSE: 614.27 mGy.cm HISTORY: fall TECHNIQUE: Multiaxial CT images of the head were performed without the use of intravenous contrast. A utomated exposure control was utilized for this study. A dose lowering technique was utilized adheri ng to the principles of ALARA. Comparison: None. Findings: The paranasal sinuses and mastoid air cells are clear. The calvarium and skull base are int act. The ventricles and sulci are within normal limits. There is no mass, hematoma, midline shift, or acute infarct. Impression: No acute intracranial abnormality. Electronically signed by: Vidal Keller M.D. 12/10/2018 6:20 AM
[2018-12-10 06:24] LABS: Calcium 8.6 mg/dl (8.5-10.1); Creatinine Clr Calc Pharmacy 106.8 ml/min; Est GFR (African American) 61.9; Est GFR (Non-African American) 53.4; Magnesium 2.2 mg/dl (1.8-2.4); Potassium 4.6 mmol/L (3.5-5.1)
--- NOTE | 2018-12-10 06:32 | CT Scan Report ---
LUMBAR SPINE CT CT DOSE: 1245.11 mGy.cm HISTORY: fall, pain TECHNIQUE: Multiaxial CT images of the lumbar spine were performed and reformatted in the sagittal an d coronal plane without the use of contrast. A dose lowering technique was utilized adhering to the principles of ALARA. COMPARISON: Lumbar spine CT 07/01/2016. FINDINGS: No change in the old mild superior endplate compression deformity at L1. No acute fracture or subluxation. Mild disc space narrowing at L4-L5 and L5-S1. Paraspinal soft tissues are unremarkabl e. IMPRESSION: No acute fracture or subluxation within the lumbar spine. Electronically signed by: Vidal Keller M.D. 12/10/2018 6:31 AM
[2018-12-10] MEDS ORDERED: INCRUSE ELLIPTA~ORDER AWAITING ACTION SCH (08:00)
[2018-12-10] MEDS: GABAPENTIN 300 MG CAP PO SCH ×2 (08:17→15:04)
[2018-12-10] MEDS: INSULIN ASPART 100 UNITS/ML 3 ML PEN SC SCH ×2 (08:22→12:20)
[2018-12-10] MEDS ORDERED: PANTOprazole 40 MG TAB PO SCH (09:00)
[2018-12-10] MEDS ORDERED: ASPIRIN 81 MG ECTAB PO SCH (09:00)
[2018-12-10] MEDS ORDERED: cloNIDine HCl 0.1 MG TAB PO SCH (09:00)
[2018-12-10] MEDS ORDERED: TIOTROPIUM BROMIDE 5 PUFF/90 MCG INH INH SCH (09:00)
[2018-12-10] MEDS ORDERED: FLUTICASONE PROPIONATE NA SPR 16 GM BTL SCH (09:00)
[2018-12-10] MEDS ORDERED: NYSTATIN POWDER 15GM BTL EXT SCH (09:00)
[2018-12-10] MEDS ORDERED: SPIRONOLACTONE 25 MG TAB PO SCH ×2 (09:00→21:00)
[2018-12-10] MEDS ORDERED: TAMSULOSIN HCL 0.4 MG CAP PO SCH (09:00)
[2018-12-10] MEDS ORDERED: predniSONE 10 MG TABLET PO SCH (09:00)
[2018-12-10] MEDS ORDERED: NICOTINE 7 MG/24 HR TDSY TD SCH (09:00)
[2018-12-10] MEDS ORDERED: MoRPHine SULFATE CR 15 MG TABCR PO SCH (09:00)
[2018-12-10] MEDS ORDERED: MAGNESIUM OXIDE 400 MG TAB PO SCH (09:00)
[2018-12-10] MEDS ORDERED: DOCUSATE SODIUM 100 MG CAP PO SCH (09:00)
[2018-12-10] MEDS ORDERED: FUROSEMIDE 20 MG TAB PO SCH ×3 (09:00→14:00)
[2018-12-10] MEDS ORDERED: METOPROLOL SUCC 25MG EXT REL TAB PO SCH (09:00)
[2018-12-10] MEDS ORDERED: DULOXETINE HCL 60 MG CAP PO SCH (09:00)
[2018-12-10] MEDS ORDERED: POTASSIUM CHLORIDE 10 MEQ TABCR PO SCH (09:00)
[2018-12-10] MEDS ORDERED: LIDOCAINE 5% 1 PATCH TD SCH (09:00)
[2018-12-10] MEDS ORDERED: POLYETHYLENE (MIRALAX) 17 GM PACK PO SCH (09:00)
[2018-12-10] MEDS ORDERED: KETOROLAC TROMETHAMINE 15 MG/ML VIAL IV ONE (09:47)
[2018-12-10] MEDS ORDERED: KETOROLAC TROMETHAMINE 15 MG/ML VIAL IV PRN (09:59)
[2018-12-10] MEDS ORDERED: HYDROmorphone INJ 0.5 MG/0.5 ML SYR IV ONE ×2 (12:39→15:15)
--- NOTE | 2018-12-10 12:44 | Hospitalist Progress Note ---
Date of Service December 10, 2018 Assessment & Plan (1) Fall: This is a 48-year-old male who presents with fall. Mechanical fall, currently at rehabilitation -as per patient, no syncope as he had simply slipped and fell down -no fractures found on imaging -Pain appears controlled -Patient is to be discharged for return to [facility] for the physical therapy Chronic pain disorder -patient does have tendency to ask for narcotics when in the hospital -Continue his home pain medications on discharge Hypotension -low on presentation but normalized after IV fluids -Patient should stop lisinopril for now to avoid hypotension and hyperkalemia -patient may continue susan dose of hydralazine, nitrate, spirolactone, metoprolol, and clonidine Acute kidney injury on chronic kidney disease stage III. -Baseline creatinine around 1.3 to 1.4, -admission creatinine of 1.68 -after IV fluids the creatinine is 1.52 which means MAHAMED has been resolving and because patient is on chronic diuretics this number is acceptable Mild Hyponatremia -from chronic diuretic use, currently 133 and this is within patient's general baseline mild Hyperkalemia. -admission potassium 5.2, after holding the lisinopril and potassium supplement and Aldactone and after 15gm Kayexalate, the serum potassium is 4.6 -Patient should stop lisinopril for now to avoid hypotension and hyperkalemia chronic diastolic heart failure -resume spirolactone and Lasix Type 2 diabtes mellitus on dba current use of insulin -continue insulin Hypoventilation associated with obesity, on supplemental oxygen at bedtime. Copd. Home inhlaers and nebs prn breathing on room air and stable Tobacco use disorder, on nicotine patch. Morbid obesity with BMI 60 history of pulmonary embolism, anticoagulated on coumadin with mildly supratherapeutic INR Patient should stop warfarin for 12/10/18 and resume on 12/11/18 as 5 mg daily because INR was mildly supratherapeutic on admission as 3 to 3.2. The goal is for the INR to be between 2 to 3. 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 The goal is for the INR to be between 2 to 3. Patient should have INR rechecked by 12/12/18 Patient should resume home medications Subjective Patient reports back and leg pain but sitting up and in no acute distress. Patient does not have shortness of breath. No chest pain. No dizziness. Physical Exam Vital Signs (Past 24 Hours): Last Vital Signs Temp 36.7 C 12/10/18 08:10 Pulse 89 12/10/18 08:10 Resp 20 12/10/18 08:10 BP 137/83 12/10/18 08:10 Pulse Ox 92 12/10/18 08:10 Constitutional: + obese Eyes: PERRL, conjunctivae normal, anicteric sclerae EOM intact bilaterally ENMT: external ear and nose normal, oropharynx normal Respiratory: normal respiratory effort, lungs clear to auscultation Cardiovascular: Rate/Rhythm: regular rate and regular rhythm Gastrointestinal (Abdomen): normal bowel sounds, soft, nontender, no hepatosplenomegaly Musculoskeletal: Head/Neck/Chest: normocephalic and head atraumatic Neurologic: PERRL, EOMI, accommodation nl, no face palsy, no dysarthria CN's II-XI intact bilaterally Psychiatric: A+Ox3, euthymic affect
--- NOTE | 2018-12-10 13:00 | Discharge Summary ---
Date of Service December 10, 2018 Admission HPI Per Admitting Provider HISTORY OF PRESENT ILLNESS: This is a 48-year-old male with past medical history significant for Diastolic chf,moderate COPD, tobacco abuse, chronic pain syndrome on chronic narcotics, depression, anxiety, history of pulmonary embolism, on Coumadin, history of drug overdose, GERD, morbid obesity, hypertension. He was recently in the hospital for COPD exacerbation, CHF exacerbation, and was discharged to rehab. He says nurse applied cream to his leg and it was kept on the floor and he tried to go to the bathroom and stepped on the cream and fell on his back and was not able to get up. He had to be lifted up and brought in the ambulance. Complains of severe pain in the right foot, left knee, and back. Imaging studies are unremarkable. The patient was hypotensive, blood pressure in the 80s. He received a fluid bolus in the ER. He currently has systolic blood pressure in the 90s. He complains of his usual headaches, his usual chest pains, his usual shortness of breath and cough here and there. Denies any fever or chills. No nausea, no abdominal pain. Appetite is okay. Normal bowel and bladder movements. No hematuria or hematochezia or burning micturition. Currently resting comfortably, however complains of pain and asks for extra pain medications. ALLERGIES: FENTANYL, ACETAMINOPHEN, VALPROIC ACID. PAST MEDICAL HISTORY: As mentioned above. PAST SURGICAL HISTORY: History of foot surgery, colonoscopy, EGD, lumbar laminectomy. FAMILY HISTORY: Father at age of 88 of heart issues. SOCIAL HISTORY: Currently living in rehab. Lives with significant other and grandchildren. Smokes tobacco, 25 cigarettes per day. No alcohol use. Uses prescription drugs. MEDICATIONS: The patient is on albuterol 2 puffs every 4 hours p.r.n., aspirin 81 mg p.o. daily, bisacodyl 10 mL daily p.r.n., clonidine 0.1 mg p.o. b.i.d., Colace 100 mg p.o. b.i.d., duloxetine 60 mg p.o. a.m., Flonase 2 sprays intranasal daily, Lasix 60 mg p.o. daily, gabapentin 300 mg p.o. t.i.d., hydralazine 12.5 mg p.o. b.i.d., hydroxyzine 25 mg p.o. q.i.d. p.r.n., Lantus 10 units at bedtime, DuoNebs every 4 hours p.r.n., Imdur 10 mg p.o. q. 2 hours, lidocaine patch daily, lisinopril 10 mg p.o. daily, Ativan 1 mg p.o. t.i.d. p.r.n., milk of magnesia daily p.r.n., magnesium oxide 400 mg p.o. daily, metoprolol succinate 25 mg p.o. b.i.d., morphine 15 mg p.o. q. 12 hours, Nicotine patch 7 mg transdermal daily, nitroglycerin 0.4 mg sublingual p.r.n., nystatin application topically b.i.d., Zofran 4 mg p.o. q. 4 hours p.r.n., oxycodone 10 mg p.o. q. 4 hours p.r.n., Protonix 40 mg p.o. q.a.m., MiraLax 17 g p.o. daily, potassium chloride 10 mEq p.o. daily, Senokot-S 1 tablet p.o. daily p.r.n., spironolactone 50 mg p.o. b.i.d., Flomax 0.4 mg p.o. daily, Spiriva 1 capsule inhalation daily, tramadol 50 mg p.o. q. 4 hours p.r.n., Incruse 1 inhalation daily, Coumadin as directed. REVIEW OF SYSTEMS: As per HPI, rest of review of systems negative. Admission Exam Per Admitting Provider PHYSICAL EXAMINATION: GENERAL: The patient is morbidly obese, not in acute distress. VITAL SIGNS: Temperature 36.6, pulse 90, respiratory rate 18, blood pressure when he came in was 89/55, currently 92/67, oxygen 97% on room air. HEENT: No pallor, no icterus. Pupils equal, round, and reactive to light. NECK: No JVD, no neck masses, no carotid bruits. CARDIOVASCULAR: S1, S2 heard, regular rate and rhythm, no murmur, no gallop. RESPIRATORY SYSTEM: Normal AP diameter. No accessory muscle use. No wheezing, no crackles. ABDOMEN: Soft, bowel sounds present. Nontender. No distention. CENTRAL NERVOUS SYSTEM: Cranial nerves II-XII grossly intact, nonfocal. EXTREMITIES: Lower extremity edema present and no erythema seen. Principal Diagnosis Mechanical Fall, Hypotension, Hyperkalemia (resolved), acute kidney injury (resolved), history of pulmonary embolism, anticoagulated on coumadin with mildly supratherapeutic INR, chronic diastolic heart failure, morbid obesity with BMI 69, chronic pain syndrome, Type 2 diabetes mellitus with custodial current use of insulin Discharge Exam Constitutional + obese Eyes PERRL, conjunctivae normal, anicteric sclerae EOM intact bilaterally ENMT external ear and nose normal, oropharynx normal Respiratory normal respiratory effort, lungs clear to auscultation Cardiovascular Rate/Rhythm: regular rate and regular rhythm Gastrointestinal (Abdomen) normal bowel sounds, soft, nontender, no hepatosplenomegaly Musculoskeletal Head/Neck/Chest: normocephalic and head atraumatic Neurologic PERRL, EOMI, accommodation nl, no face palsy, no dysarthria CN's II-XI intact bilaterally Psychiatric A+Ox3, euthymic affect Discharge Data Allergies Allergy/AdvReac Type Severity Reaction Status Date / Time fentanyl Allergy Intermediate RASH/HIVES/SKIN Verified 12/02/18 08:53 REDNESS acetaminophen AdvReac Intermediate "THEY TOLD Verified 12/02/18 08:53 ME I GET KIDNEY DISEASE" valproic acid AdvReac Intermediate PANCREATITS Verified 12/02/18 08:53 Consultations 12/10/18 00:16 ED Decision to Admit Stat 12/10/18 03:14 Consult Case Management - Discharge Planning Routine Ordered Studies 12/09/18 21:50 CT head/brain wo con Urgent CT lumbar spine wo con Urgent Hospital Course (1) Fall: This is a 48-year-old male who presents with fall. Mechanical fall, currently at rehabilitation -as per patient, no syncope as he had simply slipped and fell down -no fractures found on imaging -Pain appears controlled -Patient is to be discharged for return to [facility] for the physical therapy Chronic pain disorder -patient does have tendency to ask for narcotics when in the hospital -Continue his home pain medications on discharge Hypotension -low on presentation but normalized after IV fluids -Patient should stop lisinopril for now to avoid hypotension and hyperkalemia -patient may continue susan dose of hydralazine, nitrate, spirolactone, metoprolol, and clonidine Acute kidney injury on chronic kidney disease stage III. -Baseline creatinine around 1.3 to 1.4, -admission creatinine of 1.68 -after IV fluids the creatinine is 1.52 which means MAHAMED has been resolving and because patient is on chronic diuretics this number is acceptable Mild Hyponatremia -from chronic diuretic use, currently 133 and this is within patient's general baseline mild Hyperkalemia. -admission potassium 5.2, after holding the lisinopril and potassium supplement and Aldactone and after 15gm Kayexalate, the serum potassium is 4.6 -Patient should stop lisinopril for now to avoid hypotension and hyperkalemia chronic diastolic heart failure -resume spirolactone and Lasix Type 2 diabtes mellitus on MCFP current use of insulin -continue insulin Hypoventilation associated with obesity, on supplemental oxygen at bedtime. Copd. Home inhlaers and nebs prn breathing on room air and stable Tobacco use disorder, on nicotine patch. Morbid obesity with BMI 60 history of pulmonary embolism, anticoagulated on coumadin with mildly supratherapeutic INR Patient should stop warfarin for 12/10/18 and resume on 12/11/18 as 5 mg daily because INR was mildly supratherapeutic on admission as 3 to 3.2. The goal is for the INR to be between 2 to 3. Patient should have INR rechecked by 12/12/18 Deep venous thrombosis prophylaxis: INR 3.2 Main Discharge Diagnosis: Mechanical Fall, Hypotension, Hyperkalemia (resolved), acute kidney injury (resolved), history of pulmonary embolism, anticoagulated on coumadin with mildl y supratherapeutic INR, chronic diastolic heart failure, morbid obesity with BMI 69, chronic pain syndrome, Type 2 diabetes mellitus with custodial current use of insulin Discharge Instructions: Patient is to be discharged for return to [facility] for the physical therapy Patient should stop lisinopril for now to avoid hypotension and hyperkalemia Patient should stop warfarin for 12/10/18 and resume on 12/11/18 as 5 mg daily because INR was mildly supratherapeutic on admission as 3 to 3.2. The goal is for the INR to be between 2 to 3. Patient should have INR rechecked by 12/12/18 Patient should resume home medications Total Time Total Time Spent Total Time Spent (In Minutes): 40 minutes Total Time Includes: Examination of the Patient, Discharge Planning and Medication Reconciliation Discharge Plan Discharge Items Patient Disposition: Transfer Inpatient Rehab Fac Reason For Visit: FALL Discharge Diagnosis: Mechanical Fall, Hypotension, Hyperkalemia (resolved), acute kidney injury (resolved), history of pulmonary embolism, anticoagulated on coumadin with mildly supratherapeutic INR, chronic diastolic heart failure, morbid obesity with BMI 69, chronic pain syndrome, Type 2 diabetes mellitus with custodial current use of insulin Condition: Fair Discharge Goals: Improve disease control Activity: Per 'Additional Instructions' section Non-emergency contact: Primary Care Provider Call non-emergency contact if: you have any medication questions Follow-up/Referrals: Owen Hogan [Primary Care Provider] - Diet: Carb Consistent or DM2 and Heart Healthy Fluids: 1800ml (7 cups) Addtl Provider Instructions: Patient is to be discharged for return to [facility] for the physical therapy Patient should stop lisinopril for now to avoid hypotension and hyperkalemia Patient should stop warfarin for 12/10/18 and resume on 12/11/18 as 5 mg daily because INR was mildly supratherapeutic on admission as 3 to 3.2. The goal is for the INR to be between 2 to 3. Patient should have INR rechecked by 12/12/18 Patient should resume home medications Prescriptions: Continued sennosides-docusate sodium [Senokot-S] 8.6-50 mg Tablet 1 tab PO DAILY PRN (Reason: Constipation) RF: 0 pantoprazole 40 mg Tablet,Delayed Release (Dr/Ec) 40 mg PO QAM RF: 0 gabapentin 300 mg Capsule 300 mg PO TID RF: 0 morphine 15 mg Tablet Extended Release 15 mg PO Q12H RF: 0 furosemide 20 mg tablet 60 mg PO TID RF: 0 lorazepam 1 mg Tablet 1 mg PO TID PRN (Reason: Anxiety) RF: 0 albuterol sulfate [ProAir HFA] 90 mcg/actuation Hfa Aerosol Inhaler 2 puff INHALATION Q4H PRN (Reason: Wheezing) RF: 0 ondansetron 4 mg Tablet,Disintegrating 4 mg PO Q4H PRN (Reason: Nausea And Vomiting) RF: 0 Incruse Ellipta 62.5 mcg/actuation Blister With Device 1 inh INHALATION DAILY RF: 0 isosorbide dinitrate 10 mg tablet 10 mg PO Q12H RF: 0 polyethylene glycol 3350 [Miralax] 17 gram powder in packet 17 g PO DAILY RF: 0 tramadol 50 mg tablet 50 mg PO Q4H PRN (Reason: Pain) RF: 0 spironolactone 25 mg tablet 50 mg PO BID RF: 0 nitroglycerin [Nitrostat] 0.4 mg tablet, sublingual 0.4 mg Sublingual DIRECTED PRN (Reason: CHEST PAIN) RF: 0 docusate sodium 100 mg capsule 100 mg PO BID RF: 0 metoprolol succinate 25 mg tablet extended release 24 hr 25 mg PO Q12H RF: 0 Lantus Solostar U-100 Insulin 100 unit/mL (3 mL) insulin pen 10 units subcut HS RF: 0 prednisone 10 mg Tablet 10 mg PO DIRECTED RF: 0 bisacodyl 10 mg Suppository 10 mg DC DAILY PRN (Reason: Constipation) RF: 0 lidocaine [Lidoderm] 5 % Adhesive Patch,Medicated 3 patch TOPICAL DAILY RF: 0 Fleet Enema 19-7 gram/118 mL Enema 133 ml DC DAILY PRN (Reason: Constipation) RF: 0 nystatin 100,000 unit/gram Powder 1 applic TOPICAL BID RF: 0 oxycodone 5 mg Tablet 10 mg PO Q4H PRN (Reason: Pain) RF: 0 Milk Of Magnesia Concentrated 2,400 mg/10 mL Suspension 30 ml PO DAILY PRN (Reason: Constipation) RF: 0 ipratropium-albuterol 0.5 mg-3 mg(2.5 mg base)/3 mL Solution For Nebulization 3 ml INHALATION Q4H PRN (Reason: Shortness Of Breath Or Wheezing) RF: 0 Spiriva with HandiHaler 18 mcg Capsule, W/Inhalation Device 1 cap INHALATION DAILY RF: 0 hydralazine 12.5 mg 12.5 mg PO BID RF: 0 clonidine HCl 0.1 mg tablet 0.1 mg PO Q12H RF: 0 hydroxyzine HCl 25 mg tablet 25 mg PO QID PRN (Reason: Anxiety) RF: 0 fluticasone propionate 50 mcg/actuation spray,suspension 2 spray Intranasal QAM RF: 0 cyclobenzaprine 10 mg Tablet 10 mg PO TID PRN (Reason: Muscle Spasm) RF: 0 aspirin [Ecotrin Low Strength] 81 mg tablet,delayed release (DR/EC) 81 mg PO QAM RF: 0 duloxetine 60 mg capsule,delayed release(DR/EC) 60 mg PO QAM RF: 0 magnesium oxide 400 mg (241.3 mg magnesium) Tablet 400 mg PO QAM 30 Days Qty: 30 RF: 0 tamsulosin 0.4 mg Capsule 0.4 mg PO QAM 30 Days Qty: 30 RF: 0 nicotine [Nicoderm CQ] 7 mg/24 hr Patch 24 Hour 7 mg Transdermal QAM 30 Days Qty: 30 RF: 0 Discontinued lisinopril 10 mg Tablet 10 mg PO DAILY RF: 0 warfarin 5 mg tablet See Rx Instructions .ROUTE .COMPLEX RF: 0 potassium chloride 10 mEq tablet,ER particles/crystals 10 meq PO QAM RF: 0 Stand-Alone Forms: [facility] Discharge Orders: Discharge Order (Routine); Ordered 12/10/18 Ordered By: Aram Gillette Skilled Items Patient informed of condition?: Yes DNR: No Discharge Level of Care: Acute rehab Communicable Disease: No Discharge Prognosis: Stable Admission Data Admit Date/Time: 12/10/18 01:05 Attending Provider: Aram Gillette Admit Provider: Everardo Ibarra Primary Care Provider: Owen Hogan Other Providers: Everardo Ibarra Service: Telemetry Medical
[2018-12-10] MEDS ORDERED: INSULIN GLARGINE SOLOSTAR 100 UNITS/ML 3 ML PEN SQ SCH (21:00)
== END 2018-12-10 15:30 ==
LOC: ED 21:16 → 2N 21:16

== ENCOUNTER 2018-12-18 13:19 | Inpatient (IN) ==
[2018-12-18] MEDS ORDERED: ALBUTEROL 0.083% NEBU SOLN 3 ML VIAL NEB STA (14:04)
--- NOTE | 2018-12-18 14:22 | XRay Report ---
XR chest 1V portable HISTORY: 48 years-old Male Sepsis acute sepsis COMPARISON: Chest radiograph 12/09/2018 TECHNIQUE: Portable AP view of the chest FINDINGS: Cardiac silhouette is mildly enlarged, unchanged. Scarring/atelectasis about the left lung base is un changed. There is no pneumothorax, pleural effusion or new focal airspace consolidation. Chronic blun ting of the right costophrenic angle. Remote healed left clavicular fracture. IMPRESSION: No acute process. The above report was generated using voice recognition software. It may contain grammatical, syntax o r spelling errors. Electronically signed by: Kem Apodaca M.D. 12/18/2018 2:20 PM
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
[2018-12-18 14:40] LABS: Basophils # (auto) 0.02 K/uL (0-0.2); Basophils % (auto) 0.2 %; Eosinophils # (auto) 0.29 K/uL (0-0.5); Eosinophils % (auto) 2.4 %; Hematocrit (blood only) 29.6 % (42-52); Hemoglobin 9.7 g/dL (14.0-18.0); Immature Granulocytes # (auto) 0.04 K/uL (0.00-0.02); Immature Granulocytes % (auto) 0.3 %; Lymphocytes # (auto) 1.43 K/uL (1.2-3.4); Lymphocytes % (auto) 11.7 %; Mean Corpuscular Hgb Conc 32.8 g/dL (32-36); Mean Corpuscular Volume 83.1 fL (80-100); Mean Platelet Volume 9.4 fL (7.4-10.4); Monocytes # (auto) 0.94 K/uL (0.11-0.59); Monocytes % (auto) 7.7 %; Neutrophils # (auto) 9.54 K/uL (1.4-6.5); Neutrophils % (auto) 77.7 %; Nucleated RBC # (auto) 0.02 K/uL (0-0); Nucleated RBC % (auto) 0.2 %; Platelet Count 176 K/uL (130-400); RDW Coefficient of Variation 17.5 % (11.5-14.5); RDW Standard Deviation 53.3 fL (36.4-46.3); Red Blood Count 3.56 M/uL (4.7-6.1); White Blood Count 12.26 K/uL (4.8-10.8)
[2018-12-18] MEDS ORDERED: SODIUM CHLORIDE 0.9% 1000ML 250 ML IV ONE (14:45)
[2018-12-18 14:59] LABS: Alanine Aminotransferase 31 U/L (12-78); Albumin Level 2.6 gm/dl (3.4-5.0); Aspartate Aminotransferase 13 U/L (15-37); BUN Creatinine Ratio 10.1 (10-20); Blood Urea Nitrogen 13 mg/dl (7-18); Calcium 8.4 mg/dl (8.5-10.1); Carbon Dioxide 25 mmol/L (21-32); Chloride 102 mmol/L (98-107); Creatinine Clr Calc Pharmacy 133.3 ml/min; Est GFR (African American) 77.7; Glucose 125 mg/dl (70-99); Potassium 4.4 mmol/L (3.5-5.1); Sodium 134 mmol/L (136-145)
[2018-12-18 15:04] LABS: Albumin Globulin Ratio 0.8 (0.9-2); Alkaline Phosphatase 97 U/L (45-117); Bilirubin,Total 0.6 mg/dl (0.2-1); Globulin 3.4 gm/dl (2.5-4.0); Troponin I < 0.015 ng/ml (0-0.045)
[2018-12-18 15:08] LABS: Partial Thromboplastin Ratio 2.7; Prothrombin Time > 90.0 Seconds (9.0-12.0)
[2018-12-18 15:20] LABS: INR > 10.4 (0.9-1.1)
[2018-12-18] MEDS ORDERED: VANCOMYCIN HCL 2,750 MG in SODIUM CHLORIDE 0.9% 500 ML IV ONE (15:30)
[2018-12-18] MEDS ORDERED: PIPERACILLIN/TAZOBACTAM 4.5 GM/120 ML BAG IV ONE (15:30)
[2018-12-18] MEDS ORDERED: PHYTONADIONE 5 MG TAB PO STA (15:51)
[2018-12-18] MEDS ORDERED: MoRPHine SULFATE 2 MG/ML CARP IV STA (16:35)
[2018-12-18 18:27] LABS: Influenza A virus by PCR Neg for Influ A (Neg); Influenza B virus by PCR Neg for Influ B (Neg)
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
[2018-12-18] MEDS ORDERED: DEXTROSE 50% 50 ML SYRINGE IV PRN (19:54)
[2018-12-18] MEDS ORDERED: BISACODYL 10 MG SUPP PR PRN (19:54)
[2018-12-18] MEDS ORDERED: GLUCOSE 10 TABS/TUBE PO PRN (19:54)
[2018-12-18] MEDS ORDERED: CARBOHYDRATES FOR HYPOGLYCEMIA PO PRN (19:54)
[2018-12-18] MEDS ORDERED: GLUCOSE 40% GEL 15 GM TUBE PO PRN (19:54)
[2018-12-18] MEDS ORDERED: DOCUSATE SODIUM/SENNA 50/8.6MG TAB PO PRN (19:54)
[2018-12-18] MEDS ORDERED: MAGNESIUM HYDROXIDE SUSP 30 ML UDC PO PRN (19:54)
[2018-12-18] MEDS ORDERED: ACETAMINOPHEN 325 MG TAB PO PRN (19:54)
[2018-12-18] MEDS ORDERED: GLUCAGON FOR INJ 1 MG VIAL SQ PRN (19:54)
[2018-12-18] MEDS ORDERED: XOPENEX/ATROVENT 1.25mg/0.5MG NEB COMBO NEB SCH (20:00)
[2018-12-18] MEDS: LEVALBUTEROL 1.25MG/0.5ML NEB INH SCH (20:52)
[2018-12-18] MEDS: IPRATROPIUM BROMIDE NEB SOLN 0.02% 2.5 ML VIAL INH SCH (20:52)
[2018-12-18] MEDS: MoRPHine SULFATE CR 15 MG TABCR PO SCH (20:58)
[2018-12-18] MEDS: FUROSEMIDE 60 MG in SYRINGE 0 ML IV SCH (20:58)
[2018-12-18] MEDS: OXYCODONE HCL IR 5 MG TAB (IMMEDIATE RELEASE) PO PRN (21:32)
[2018-12-18] MEDS: NYSTATIN POWDER 15GM BTL EXT SCH (21:38)
[2018-12-18] MEDS: DOCUSATE SODIUM 100 MG CAP PO SCH (21:38)
[2018-12-18] MEDS: GABAPENTIN 300 MG CAP PO SCH (21:38)
[2018-12-18] MEDS: INSULIN ASPART 100 UNITS/ML 3 ML PEN SC SCH (21:39)
[2018-12-18] MEDS: NICOTINE 7 MG/24 HR TDSY TD SCH (21:39)
[2018-12-18] MEDS: LORazepam 1 MG TAB PO PRN (22:06)
[2018-12-19] MEDS: FUROSEMIDE 60 MG in SYRINGE 0 ML IV SCH ×4 (00:25→20:32)
[2018-12-19] MEDS: LEVALBUTEROL 1.25MG/0.5ML NEB INH SCH ×4 (01:02→19:59)
[2018-12-19] MEDS: IPRATROPIUM BROMIDE NEB SOLN 0.02% 2.5 ML VIAL INH SCH ×4 (01:02→19:59)
[2018-12-19] MEDS: OXYCODONE HCL IR 5 MG TAB (IMMEDIATE RELEASE) PO PRN ×5 (03:01→20:24)
[2018-12-19 07:14] LABS: Hematocrit (blood only) 31.3 % (42-52); Hemoglobin 10.3 g/dL (14.0-18.0); Mean Corpuscular Hgb Conc 32.9 g/dL (32-36); Mean Corpuscular Volume 82.6 fL (80-100); Mean Platelet Volume 9.3 fL (7.4-10.4); Platelet Count 177 K/uL (130-400); RDW Coefficient of Variation 17.6 % (11.5-14.5); RDW Standard Deviation 53.1 fL (36.4-46.3); Red Blood Count 3.79 M/uL (4.7-6.1); White Blood Count 6.94 K/uL (4.8-10.8)
[2018-12-19 07:36] LABS: Prothrombin Time 67.6 Seconds (9.0-12.0)
[2018-12-19] MEDS: ASPIRIN 81 MG ECTAB PO SCH (07:44)
[2018-12-19] MEDS: TAMSULOSIN HCL 0.4 MG CAP PO SCH (07:44)
[2018-12-19] MEDS: LIDOCAINE 5% 1 PATCH TD SCH (07:44)
[2018-12-19] MEDS: MoRPHine SULFATE CR 15 MG TABCR PO SCH ×2 (07:44→20:32)
[2018-12-19] MEDS: GABAPENTIN 300 MG CAP PO SCH ×3 (07:44→20:33)
[2018-12-19] MEDS: DULOXETINE HCL 60 MG CAP PO SCH (07:45)
[2018-12-19] MEDS: PANTOprazole 40 MG TAB PO SCH (07:45)
[2018-12-19] MEDS: MAGNESIUM OXIDE 400 MG TAB PO SCH (07:45)
[2018-12-19] MEDS: DOCUSATE SODIUM 100 MG CAP PO SCH ×2 (07:45→20:32)
[2018-12-19] MEDS: NYSTATIN POWDER 15GM BTL EXT SCH ×2 (07:46→20:34)
[2018-12-19] MEDS: INSULIN ASPART 100 UNITS/ML 3 ML PEN SC SCH ×4 (07:46→20:48)
[2018-12-19 07:48] LABS: BUN Creatinine Ratio 11.1 (10-20); Calcium 8.9 mg/dl (8.5-10.1); Creatinine Clr Calc Pharmacy 166.7 ml/min; Est GFR (African American) 103.9; Est GFR (Non-African American) 89.7; Potassium 3.7 mmol/L (3.5-5.1)
[2018-12-19 07:53] LABS: INR 7.6 (0.9-1.1)
[2018-12-19] MEDS: POLYETHYLENE (MIRALAX) 17 GM PACK PO SCH (12:03)
[2018-12-19] MEDS: TRAMADOL HCL 50 MG TABLET PO PRN ×3 (12:32→21:42)
[2018-12-19] MEDS: LORazepam 1 MG TAB PO PRN ×2 (13:39→21:42)
--- NOTE | 2018-12-19 18:21 | Hospitalist Progress Note ---
Date of Service December 19, 2018 Assessment & Plan (1) Acute on chronic diastolic CHF (congestive heart failure): Present on admission from home with reports of increasing shortness of breath, weight gain, lower extremity edema Has been having recurrent admission for fluid overload (3 admissions in the month of November) Gained about 11lbs since discharge from the hospital on 12/10 Noncompliant with fluid restriction, low-sodium diet in the past Continue Lasix 60mg IV TID, might consider to increase to 80mg TID on discharge Will put on 1.5 L fluid restriction Monitor I/O (2) Hypotension: BP stable Will resume metoprolol and clonidine and spironolactone for now Monitor BP (3) Pulmonary embolism: (4) Supratherapeutic INR: INR > 10.4 on admssion Pt said that he had been taking his coumadin accordingly No signs of bleeding Received Vit K 2.5 mg in the ER INR 7 today Will hold coumadin for today (5) Anemia: Hgb 9.7 on admission, improved o 10.3 today Stable (6) COPD (chronic obstructive pulmonary disease): CXR showed no acute process Influenza testing negative Continue neb treatment Saturated well on RA (7) Erythema: Chronic - Moslty due to edema and obesity No sign of infection Procalcitonin negative Afebrile and WBC back to normal Blood cx pending Will hold for abx for now (8) BPH (benign prostatic hyperplasia): Continue tamsulosin (9) Chronic pain disorder: Continue routine home pain medications (10) Depression with anxiety: Continue duloxetine (11) DVT prophylaxis: Coumadin on hold due to supratherapeutic INR INR 7 today CODE STATUS FULL CODE Disposition will discharge once medically stable Subjective Pt was seen and examined Lying in bed with no distress He has been asking for a fontaine cath I explained to him that he does not need a fontaine cath He needs to get up with assistance to urinate Pt is upset because of the bed alarm He said that the staff said that he had 11 falls in the past few years Pt said that he did not recall that he had any fall in the hospital Denies any chest pain, palpitation, dizziness and SOB Physical Exam Vital Signs (Past 24 Hours): Last Vital Signs Temp 36.7 C 12/19/18 15:00 Pulse 102 H 12/19/18 17:02 Resp 22 12/19/18 15:00 BP 130/88 12/19/18 15:00 Pulse Ox 96 12/19/18 15:00 Physical Exam: General- No acute distress Head- atraumatic Eyes- PERRL, EOMI, ENT- oropharynx clear Neck- supple, no JVD Lungs- No wheezing Heart- regular rhythm; no murmur Abdomen- normal bowel sounds, soft, nontender, obese Extremities- no calf tenderness, +edema in Lower extremities Neuro- alert, oriented x 3; PERRL, EOMI; no facial palsy; no dysarthria Skin- warm & dry
[2018-12-20] MEDS: OXYCODONE HCL IR 5 MG TAB (IMMEDIATE RELEASE) PO PRN ×6 (00:31→20:29)
[2018-12-20] MEDS: TRAMADOL HCL 50 MG TABLET PO PRN ×6 (01:48→22:23)
[2018-12-20] MEDS: LEVALBUTEROL 1.25MG/0.5ML NEB INH SCH ×4 (01:53→20:18)
[2018-12-20] MEDS: IPRATROPIUM BROMIDE NEB SOLN 0.02% 2.5 ML VIAL INH SCH ×4 (01:53→20:18)
[2018-12-20 07:47] LABS: INR 3.7 (0.9-1.1); Prothrombin Time 34.5 Seconds (9.0-12.0)
[2018-12-20] MEDS: MoRPHine SULFATE CR 15 MG TABCR PO SCH ×2 (08:17→20:30)
[2018-12-20] MEDS: FUROSEMIDE 60 MG in SYRINGE 0 ML IV SCH ×3 (08:17→20:29)
[2018-12-20] MEDS: ASPIRIN 81 MG ECTAB PO SCH (08:18)
[2018-12-20] MEDS: NYSTATIN POWDER 15GM BTL EXT SCH ×2 (08:18→20:32)
[2018-12-20] MEDS: NICOTINE 7 MG/24 HR TDSY TD SCH (08:18)
[2018-12-20] MEDS: TAMSULOSIN HCL 0.4 MG CAP PO SCH (08:18)
[2018-12-20] MEDS: GABAPENTIN 300 MG CAP PO SCH ×3 (08:18→20:32)
[2018-12-20] MEDS: MAGNESIUM OXIDE 400 MG TAB PO SCH (08:19)
[2018-12-20] MEDS: LIDOCAINE 5% 1 PATCH TD SCH (08:19)
[2018-12-20] MEDS: INSULIN ASPART 100 UNITS/ML 3 ML PEN SC SCH ×4 (08:20→22:23)
[2018-12-20] MEDS: DOCUSATE SODIUM 100 MG CAP PO SCH ×2 (08:23→20:31)
[2018-12-20 08:41] LABS: BUN Creatinine Ratio 11.5 (10-20); Calcium 8.9 mg/dl (8.5-10.1); Creatinine Clr Calc Pharmacy 131.2 ml/min; Est GFR (African American) 77.7; Potassium 3.5 mmol/L (3.5-5.1)
[2018-12-20] MEDS: DULOXETINE HCL 60 MG CAP PO SCH (09:16)
[2018-12-20] MEDS: SPIRONOLACTONE 25 MG TAB PO SCH ×2 (09:16→16:32)
[2018-12-20] MEDS: LORazepam 1 MG TAB PO PRN ×2 (09:16→20:29)
[2018-12-20] MEDS: PANTOprazole 40 MG TAB PO SCH (09:16)
[2018-12-20] MEDS: POLYETHYLENE (MIRALAX) 17 GM PACK PO SCH (12:02)
[2018-12-20] MEDS ORDERED: WARFARIN SOD 5 MG TAB PO SCH ×2 (16:00→16:45)
[2018-12-20] MEDS: CYCLOBENZAPRINE HCL 10 MG TAB PO PRN (16:04)
--- NOTE | 2018-12-20 17:57 | Hospitalist Progress Note ---
Date of Service December 20, 2018 Assessment & Plan (1) Acute on chronic diastolic CHF (congestive heart failure): Present on admission from home with reports of increasing shortness of breath, weight gain, lower extremity edema Has been having recurrent admission for fluid overload (3 admissions in the month of November) Gained about 11lbs since discharge from the hospital on 12/10 Noncompliant with fluid restriction, low-sodium diet in the past Continue Lasix 60mg IV TID, might consider to increase to 80mg TID on discharge Resumed Spironolactone 50mg BID on 1.5 L fluid restriction Monitor I/O (2) Hypotension: BP stable Will resume metoprolol and clonidine and spironolactone for now Monitor BP Resolved (3) Pulmonary embolism: (4) Supratherapeutic INR: INR > 10.4 on admssion Pt said that he had been taking his coumadin accordingly No signs of bleeding Received Vit K 2.5 mg in the ER INR 3.7 today Resumed coumadin today Monitor PT/INR (5) Anemia: Hgb 9.7 on admission, improved to 10.3 Stable (6) COPD (chronic obstructive pulmonary disease): CXR showed no acute process Influenza testing negative Continue neb treatment Saturated well on RA (7) Erythema: Chronic - Moslty due to edema and obesity No sign of infection Procalcitonin negative Afebrile and WBC back to normal Blood cx no growth Will hold on abx for now (8) BPH (benign prostatic hyperplasia): Continue tamsulosin (9) Chronic pain disorder: Continue routine home pain medications (10) Depression with anxiety: Continue duloxetine (11) DVT prophylaxis: Coumadin resumes INR 3.7 today CODE STATUS FULL CODE Disposition will discharge once medically stable Subjective Pt was seen and examined Sitting at the edge of the bed with no distress He continues asking for a fontaine cath He did not use the urinal for the last 2 days so no urinary output noted in the chart Nurse placed a toilet hat to collect his urinate He said that he has not had a BM since admitted Denies any chest pain, palpitation, dizziness and SOB Physical Exam Vital Signs (Past 24 Hours): Last Vital Signs Temp 36.5 C 12/20/18 14:56 Pulse 108 H 12/20/18 16:00 Resp 21 12/20/18 14:56 BP 136/83 12/20/18 14:56 Pulse Ox 93 12/20/18 14:56 Physical Exam: General- No acute distress Head- atraumatic Eyes- PERRL, EOMI, ENT- oropharynx clear Neck- supple, no JVD Lungs- No wheezing Heart- regular rhythm; no murmur Abdomen- normal bowel sounds, soft, nontender, obese Extremities- no calf tenderness, +edema in Lower extremities Neuro- alert, oriented x 3; PERRL, EOMI; no facial palsy; no dysarthria Skin- warm & dry
[2018-12-20] MEDS: cloNIDine HCl 0.1 MG TAB PO SCH (20:31)
[2018-12-20] MEDS: METOPROLOL SUCC 25MG EXT REL TAB PO SCH (20:32)
[2018-12-21] MEDS: OXYCODONE HCL IR 5 MG TAB (IMMEDIATE RELEASE) PO PRN ×6 (00:34→23:21)
[2018-12-21] MEDS: CYCLOBENZAPRINE HCL 10 MG TAB PO PRN ×3 (00:35→23:26)
[2018-12-21] MEDS: LEVALBUTEROL 1.25MG/0.5ML NEB INH SCH ×3 (01:24→13:53)
[2018-12-21] MEDS: IPRATROPIUM BROMIDE NEB SOLN 0.02% 2.5 ML VIAL INH SCH ×3 (01:24→13:53)
[2018-12-21] MEDS: ONDANSETRON INJ 2 MG/ML 2 ML VIAL IV PRN ×3 (03:30→18:36)
[2018-12-21] MEDS: TRAMADOL HCL 50 MG TABLET PO PRN ×5 (05:22→22:01)
[2018-12-21 06:24] LABS: INR 2.6 (0.9-1.1); Prothrombin Time 25.3 Seconds (9.0-12.0)
[2018-12-21 06:32] LABS: Calcium 8.6 mg/dl (8.5-10.1); Est GFR (African American) 77.7; Potassium 3.5 mmol/L (3.5-5.1)
[2018-12-21] MEDS ORDERED: POTASSIUM CHLORIDE 20 MEQ TABCR PO STA (07:54)
[2018-12-21] MEDS: MAGNESIUM OXIDE 400 MG TAB PO SCH (09:16)
[2018-12-21] MEDS: NICOTINE 7 MG/24 HR TDSY TD SCH (09:18)
[2018-12-21] MEDS: LIDOCAINE 5% 1 PATCH TD SCH (09:18)
[2018-12-21] MEDS: FUROSEMIDE 60 MG in SYRINGE 0 ML IV SCH ×3 (09:18→20:06)
[2018-12-21] MEDS: TAMSULOSIN HCL 0.4 MG CAP PO SCH (09:18)
[2018-12-21] MEDS: DULOXETINE HCL 60 MG CAP PO SCH (09:19)
[2018-12-21] MEDS: METOPROLOL SUCC 25MG EXT REL TAB PO SCH ×2 (09:19→20:10)
[2018-12-21] MEDS: NYSTATIN POWDER 15GM BTL EXT SCH ×2 (09:19→20:09)
[2018-12-21] MEDS: GABAPENTIN 300 MG CAP PO SCH ×3 (09:19→20:09)
[2018-12-21] MEDS: PANTOprazole 40 MG TAB PO SCH (09:19)
[2018-12-21] MEDS: ASPIRIN 81 MG ECTAB PO SCH (09:20)
[2018-12-21] MEDS: SPIRONOLACTONE 25 MG TAB PO SCH ×2 (09:20→17:43)
[2018-12-21] MEDS: cloNIDine HCl 0.1 MG TAB PO SCH ×2 (09:21→20:09)
[2018-12-21] MEDS: MoRPHine SULFATE CR 15 MG TABCR PO SCH ×2 (09:23→20:27)
[2018-12-21] MEDS: DOCUSATE SODIUM 100 MG CAP PO SCH ×2 (09:23→22:02)
[2018-12-21] MEDS: INSULIN ASPART 100 UNITS/ML 3 ML PEN SC SCH ×4 (09:24→21:27)
[2018-12-21] MEDS: LORazepam 1 MG TAB PO PRN ×2 (09:34→22:01)
[2018-12-21] MEDS: POLYETHYLENE (MIRALAX) 17 GM PACK PO SCH (11:20)
[2018-12-21] MEDS ORDERED: LACTULOSE SYRUP 30 GM/45 ML UDP PO STA (14:26)
[2018-12-21] MEDS ORDERED: LEVALBUTEROL 1.25MG/0.5ML NEB INH PRN (14:31)
[2018-12-21] MEDS ORDERED: IPRATROPIUM BROMIDE NEB SOLN 0.02% 2.5 ML VIAL INH PRN (14:31)
[2018-12-21] MEDS ORDERED: LIDOCAINE 5% 1 PATCH TD ONE (15:00)
--- NOTE | 2018-12-21 18:15 | Hospitalist Progress Note ---
Date of Service December 21, 2018 Assessment & Plan (1) Acute on chronic diastolic CHF (congestive heart failure): weight gain on admission from water weight Continue Lasix 60mg IV TID continue Spironolactone 50mg BID on 1.8 L fluid restriction add Metolazone starting tomorrow chronic kidney disease stage II to III monitor renal function while on IV diuretic (2) Hypotension: blood pressure now stable continue metoprolol and clonidine and spironolactone for now (3) Pulmonary embolism: history of pulmonary embolism in the past, anticoagulated on coumadin current presence of pulmonary embolism is unknown continue coumadin 5 mg daily for now (4) Supratherapeutic INR: INR > 10.4 on admission Received Vit K 2.5 mg in the ER INR on 12/21/18 is 2.6 which is at goal of target between 2 to 3 continue coumadin 5 mg daily for now (5) Anemia: stable (6) COPD (chronic obstructive pulmonary disease): CXR showed no acute process Influenza testing negative patient is a chronic tobacco user despite being encouraged to quit in the past Saturated well on room air no evidence of acute exacerbation of COPD Tobacco use disorder have encouraged smoking cessation Hypoventilation associated with obesity, on supplemental oxygen at bedtime. 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 Discussed about hospital course and future outpatient plans. patient denies chest pain. breathing on room air. no vomiting. he has some chronic pain complaints that are musculoskeletal in nature. Physical Exam Vital Signs (Past 24 Hours): Last Vital Signs Temp 36.7 C 12/21/18 14:50 Pulse 100 H 12/21/18 16:59 Resp 20 12/21/18 14:50 BP 138/76 12/21/18 14:50 Pulse Ox 92 12/21/18 14:50 Constitutional: WD/WN, vitals as above Eyes: PERRL, conjunctivae normal, anicteric sclerae EOM intact bilaterally ENMT: external ear and nose normal, oropharynx normal Neck: trachea midline, no thyromegaly normal visual inspection Respiratory: normal respiratory effort, lungs clear to auscultation Cardiovascular: Rate/Rhythm: regular rate and regular rhythm Gastrointestinal (Abdomen): normal bowel sounds, soft, nontender, no hepatosplenomegaly Musculoskeletal: Head/Neck/Chest: normocephalic and head atraumatic Neurologic: PERRL, EOMI, accommodation nl, no face palsy, no dysarthria Psychiatric: Orientation: alert and oriented x 3
[2018-12-22] MEDS: OXYCODONE HCL IR 5 MG TAB (IMMEDIATE RELEASE) PO PRN ×5 (05:46→22:24)
[2018-12-22 06:57] LABS: Prothrombin Time 19.5 Seconds (9.0-12.0)
[2018-12-22 07:00] LABS: Albumin Level 2.8 gm/dl (3.4-5.0); BUN Creatinine Ratio 14.5 (10-20); Calcium 9.1 mg/dl (8.5-10.1); Creatinine Clr Calc Pharmacy 126.6 ml/min; Est GFR (African American) 74.1; Est GFR (Non-African American) 63.9; Potassium 3.8 mmol/L (3.5-5.1)
[2018-12-22] MEDS: TRAMADOL HCL 50 MG TABLET PO PRN ×5 (07:01→23:28)
[2018-12-22 07:03] LABS: Albumin Globulin Ratio 0.8 (0.9-2); Bilirubin,Total 0.4 mg/dl (0.2-1); Globulin 3.7 gm/dl (2.5-4.0); Total Protein 6.5 gm/dl (6.4-8.2)
[2018-12-22] MEDS ORDERED: metOLazone 2.5 MG TABLET PO SCH (09:00)
[2018-12-22] MEDS: INSULIN ASPART 100 UNITS/ML 3 ML PEN SC SCH ×4 (09:02→21:11)
[2018-12-22] MEDS: SPIRONOLACTONE 25 MG TAB PO SCH ×2 (09:03→17:22)
[2018-12-22] MEDS: cloNIDine HCl 0.1 MG TAB PO SCH ×2 (09:05→20:15)
[2018-12-22] MEDS: DOCUSATE SODIUM 100 MG CAP PO SCH ×2 (09:06→09:10)
[2018-12-22] MEDS: DULOXETINE HCL 60 MG CAP PO SCH (09:06)
[2018-12-22] MEDS: TAMSULOSIN HCL 0.4 MG CAP PO SCH (09:07)
[2018-12-22] MEDS: ASPIRIN 81 MG ECTAB PO SCH (09:07)
[2018-12-22] MEDS: GABAPENTIN 300 MG CAP PO SCH ×3 (09:08→20:16)
[2018-12-22] MEDS: MAGNESIUM OXIDE 400 MG TAB PO SCH (09:08)
[2018-12-22] MEDS: PANTOprazole 40 MG TAB PO SCH (09:09)
[2018-12-22] MEDS: METOPROLOL SUCC 25MG EXT REL TAB PO SCH ×2 (09:09→20:18)
[2018-12-22] MEDS: NYSTATIN POWDER 15GM BTL EXT SCH ×2 (09:10→20:17)
[2018-12-22] MEDS: LIDOCAINE 5% 1 PATCH TD SCH (09:13)
[2018-12-22] MEDS: FUROSEMIDE 60 MG in SYRINGE 0 ML IV SCH ×3 (09:16→20:14)
[2018-12-22] MEDS: MoRPHine SULFATE CR 15 MG TABCR PO SCH ×2 (09:25→20:12)
[2018-12-22] MEDS: NICOTINE 7 MG/24 HR TDSY TD SCH (09:25)
[2018-12-22] MEDS: POLYETHYLENE (MIRALAX) 17 GM PACK PO SCH (11:35)
[2018-12-22] MEDS: LORazepam 1 MG TAB PO PRN ×2 (12:38→20:30)
[2018-12-22] MEDS: CYCLOBENZAPRINE HCL 10 MG TAB PO PRN ×2 (13:18→21:56)
--- NOTE | 2018-12-22 14:57 | XRay Report ---
LEFT ANKLE 3 VIEWS CLINICAL HISTORY: Left ankle pain. FINDINGS: 3 views of the left ankle are compared to study dated 07/03/2017 and correlated with radiog raphs of the left tibia and fibula dated 12/09/2018. The skeletal structures are well mineralized. No fracture is identified. The ankle mortise is intact. There is a tiny dorsal calcaneal enthesophyte. Soft tissue edema is present around the foot and ankle. No joint effusion is identified. IMPRESSION: Soft tissue swelling with no radiographic evidence of acute fracture. Electronically signed by: Misael Lopez M.D. 12/22/2018 2:55 PM
[2018-12-22] MEDS: WARFARIN PO SCH (15:43)
[2018-12-22] MEDS ORDERED: WARFARIN SOD 5 MG TAB PO SCH (16:00)
--- NOTE | 2018-12-22 17:00 | Hospitalist Progress Note ---
Date of Service December 22, 2018 Assessment & Plan (1) Acute on chronic diastolic CHF (congestive heart failure): weight gain on admission from water weight Continue Lasix 60mg IV TID continue Spironolactone 50mg BID on 1.8 L fluid restriction because patient with with net positive input on 12/21/18 and on 12/22/18 the patient likely to benefit from Metolazone chronic kidney disease stage II to III monitor renal function while on IV diuretic (2) Hypotension: blood pressure now stable continue metoprolol and clonidine and spironolactone (3) Pulmonary embolism: history of pulmonary embolism in the past, anticoagulated on coumadin current presence of pulmonary embolism is unknown continue coumadin 5 mg daily for now (4) Supratherapeutic INR: INR > 10.4 on admission Received Vit K 2.5 mg in the ER INR on 12/21/18 is 2.6 which is at goal of target between 2 to 3 and was continued coumadin 5 mg INR on 12/22/18 is 2 and so have increased coumadin to 7 mg (5) Anemia: stable (6) COPD (chronic obstructive pulmonary disease): CXR showed no acute process Influenza testing negative patient is a chronic tobacco user despite being encouraged to quit in the past Saturate well on room air no evidence of acute exacerbation of COPD Tobacco use disorder have encouraged smoking cessation Hypoventilation associated with obesity on supplemental oxygen at bedtime. 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 patient was seen earlier patient denies chest pain. breathing on room air. no vomiting. he has some chronic pain of left ankle which physician has assured him is not broken if he is ambulatory with physical therapy and that pain is from soft tissue swelling. has lidocaine patch on left ankle left ankle X ray without fracture Physical Exam Vital Signs (Past 24 Hours): Last Vital Signs Temp 36.7 C 12/22/18 15:26 Pulse 77 12/22/18 15:33 Resp 18 12/22/18 15:26 BP 112/75 12/22/18 15:26 Pulse Ox 92 12/22/18 15:26 Constitutional: + obese Eyes: PERRL, conjunctivae normal, anicteric sclerae EOM intact bilaterally ENMT: external ear and nose normal, oropharynx normal Neck: trachea midline, no thyromegaly normal visual inspection Respiratory: normal respiratory effort, lungs clear to auscultation Cardiovascular: Rate/Rhythm: regular rate and regular rhythm Gastrointestinal (Abdomen): normal bowel sounds, soft, nontender, no hepatosplenomegaly Musculoskeletal: Head/Neck/Chest: normocephalic and head atraumatic Skin: mild eyrethma of bilateral leg , pedal edema and , left ankle has lidocaine patch Neurologic: PERRL, EOMI, accommodation nl, no face palsy, no dysarthria Psychiatric: Orientation: alert and oriented x 3
[2018-12-22 17:05] LABS: Appearance Urine Clear (Clear); Bilirubin Urine Negative (Negative); Blood Urine Negative (Negative); Color Urine Yellow; Glucose Urine UA Negative (Negative); Ketones Urine Negative (Negative); Leukocyte Esterase Urine Negative (Negative); Nitrite Urine Negative (Negative); Protein Urine Negative (Negative); Specific Gravity Urine 1.008 (1.000-1.030); Urobilinogen Urine Negative (Negative)
[2018-12-22] MEDS: metOLazone 2.5 MG TABLET PO SCH (20:12)
[2018-12-22] MEDS: ONDANSETRON INJ 2 MG/ML 2 ML VIAL IV PRN (22:24)
[2018-12-23] MEDS: OXYCODONE HCL IR 5 MG TAB (IMMEDIATE RELEASE) PO PRN ×4 (06:05→19:53)
[2018-12-23 07:24] LABS: INR 1.8 (0.9-1.1)
[2018-12-23 07:46] LABS: BUN Creatinine Ratio 15.7 (10-20); Calcium 9.4 mg/dl (8.5-10.1); Creatinine Clr Calc Pharmacy 106.4 ml/min; Est GFR (African American) 60.5; Est GFR (Non-African American) 52.2
[2018-12-23] MEDS: TAMSULOSIN HCL 0.4 MG CAP PO SCH (08:35)
[2018-12-23] MEDS: FUROSEMIDE 60 MG in SYRINGE 0 ML IV SCH (08:35)
[2018-12-23] MEDS: DULOXETINE HCL 60 MG CAP PO SCH (08:35)
[2018-12-23] MEDS: SPIRONOLACTONE 25 MG TAB PO SCH ×2 (08:35→17:23)
[2018-12-23] MEDS: ASPIRIN 81 MG ECTAB PO SCH (08:35)
[2018-12-23] MEDS: cloNIDine HCl 0.1 MG TAB PO SCH ×2 (08:35→21:11)
[2018-12-23] MEDS: DOCUSATE SODIUM 100 MG CAP PO SCH ×2 (08:35→21:12)
[2018-12-23] MEDS: MoRPHine SULFATE CR 15 MG TABCR PO SCH ×2 (08:36→21:22)
[2018-12-23] MEDS: LIDOCAINE 5% 1 PATCH TD SCH (08:36)
[2018-12-23] MEDS: GABAPENTIN 300 MG CAP PO SCH ×3 (08:36→21:13)
[2018-12-23] MEDS: MAGNESIUM OXIDE 400 MG TAB PO SCH (08:36)
[2018-12-23] MEDS: NYSTATIN POWDER 15GM BTL EXT SCH ×2 (08:36→21:12)
[2018-12-23] MEDS: LORazepam 1 MG TAB PO PRN ×2 (08:37→21:23)
[2018-12-23] MEDS: METOPROLOL SUCC 25MG EXT REL TAB PO SCH ×2 (08:37→21:15)
[2018-12-23] MEDS: metOLazone 2.5 MG TABLET PO SCH (08:37)
[2018-12-23] MEDS: TRAMADOL HCL 50 MG TABLET PO PRN ×4 (08:37→21:22)
[2018-12-23] MEDS: NICOTINE 7 MG/24 HR TDSY TD SCH (08:37)
[2018-12-23] MEDS: PANTOprazole 40 MG TAB PO SCH (08:37)
[2018-12-23] MEDS: INSULIN ASPART 100 UNITS/ML 3 ML PEN SC SCH ×4 (08:38→21:45)
[2018-12-23] MEDS ORDERED: POTASSIUM CHLORIDE 20 MEQ TABCR PO STA ×2 (08:47→15:06)
[2018-12-23] MEDS: POTASSIUM CHLORIDE 10 MEQ TABCR PO SCH (10:14)
[2018-12-23] MEDS: LISINOPRIL 5 MG TAB PO SCH (10:14)
[2018-12-23] MEDS: ONDANSETRON INJ 2 MG/ML 2 ML VIAL IV PRN ×2 (10:40→21:47)
[2018-12-23] MEDS: POLYETHYLENE (MIRALAX) 17 GM PACK PO SCH (12:42)
[2018-12-23 14:19] LABS: Calcium 9.4 mg/dl (8.5-10.1); Creatinine Clr Calc Pharmacy 109.3 ml/min; Est GFR (African American) 62.4; Est GFR (Non-African American) 53.8; Potassium 3.3 mmol/L (3.5-5.1)
[2018-12-23] MEDS: WARFARIN PO SCH (15:35)
--- NOTE | 2018-12-23 15:38 | Hospitalist Progress Note ---
Date of Service December 23, 2018 Assessment & Plan (1) Acute on chronic diastolic CHF (congestive heart failure): weight gain on admission from water weight Continue Lasix 60mg IV TID continue Spironolactone 50mg BID on 1.8 L fluid restriction further review of input/output that patient making net negative outputs on 12/21/18 and 12/22/18 currently on Lasix with metalozone, because of hypokalemia of 3 on 12/23/18 the afternoon dose was held, after oral and IV repletions, the potassium levels is 3 .3 and will give more oral potassium and resume night dose of diuresis chronic kidney disease stage II to III monitor renal function while on IV diuretic (2) Hypotension: blood pressure now stable continue metoprolol and clonidine and spironolactone (3) Pulmonary embolism: history of pulmonary embolism in the past, anticoagulated on coumadin current presence of pulmonary embolism is unknown continue coumadin daily INR on 12/23/18 is 1.8, and will continue coumadin 7 mg daily and give heparin subcutanous for now for DVT prophylaxis, if INR continues to trend down then may consider heparin drip in near future (4) Supratherapeutic INR: INR > 10.4 on admission Received Vit K 2.5 mg in the ER INR on 12/21/18 is 2.6 which is at goal of target between 2 to 3 and was continued coumadin 5 mg INR on 12/22/18 is 2 and so have increased coumadin to 7 mg INR on 12/23/18 is 1.8, and will continue coumadin 7 mg daily and give heparin subcutanous for now for DVT prophylaxis (5) Anemia: stable (6) COPD (chronic obstructive pulmonary disease): CXR showed no acute process Influenza testing negative patient is a chronic tobacco user despite being encouraged to quit in the past Saturate well on room air no evidence of acute exacerbation of COPD Tobacco use disorder have encouraged smoking cessation Hypoventilation associated with obesity on supplemental oxygen at bedtime. 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 breathing on room air. no vomiting. serum potassium low today as 3 and AM diuretic given but the afternoon dose was held while potassium supplements were given Physical Exam Vital Signs (Past 24 Hours): Last Vital Signs Temp 36.8 C 12/23/18 07:19 Pulse 87 12/23/18 08:00 Resp 19 12/23/18 07:19 BP 118/75 12/23/18 07:19 Pulse Ox 94 12/23/18 07:19 Constitutional: WD/WN, vitals as above + obese Eyes: PERRL, conjunctivae normal, anicteric sclerae EOM intact bilaterally ENMT: external ear and nose normal, oropharynx normal Neck: trachea midline, no thyromegaly normal visual inspection Respiratory: normal respiratory effort, lungs clear to auscultation Cardiovascular: Rate/Rhythm: regular rate and regular rhythm Gastrointestinal (Abdomen): normal bowel sounds, soft, nontender, no hepatosplenomegaly Musculoskeletal: Head/Neck/Chest: normocephalic and head atraumatic Neurologic: PERRL, EOMI, accommodation nl, no face palsy, no dysarthria Psychiatric: Orientation: alert and oriented x 3
[2018-12-23] MEDS ORDERED: HEPARIN SOD 5,000 UNIT/0.5 ML VIAL SQ ONE (16:00)
[2018-12-23] MEDS: HEPARIN SOD 5,000 UNIT/0.5 ML VIAL SQ SCH (21:12)
[2018-12-24] MEDS: OXYCODONE HCL IR 5 MG TAB (IMMEDIATE RELEASE) PO PRN ×6 (01:12→22:21)
[2018-12-24] MEDS: TRAMADOL HCL 50 MG TABLET PO PRN ×5 (02:59→20:24)
[2018-12-24 06:15] LABS: INR 1.9 (0.9-1.1); Prothrombin Time 18.6 Seconds (9.0-12.0)
[2018-12-24 06:25] LABS: BUN Creatinine Ratio 16.6 (10-20); Est GFR (Non-African American) 56.1; Magnesium 2.1 mg/dl (1.8-2.4); Potassium 3.2 mmol/L (3.5-5.1)
[2018-12-24] MEDS ORDERED: POTASSIUM CHLORIDE 20 MEQ TABCR PO STA (07:26)
[2018-12-24] MEDS: POTASSIUM CHLORIDE 10 MEQ TABCR PO SCH (08:11)
[2018-12-24] MEDS: SPIRONOLACTONE 25 MG TAB PO SCH ×2 (08:11→17:13)
[2018-12-24] MEDS: TAMSULOSIN HCL 0.4 MG CAP PO SCH (08:11)
[2018-12-24] MEDS: GABAPENTIN 300 MG CAP PO SCH ×3 (08:11→21:14)
[2018-12-24] MEDS: MAGNESIUM OXIDE 400 MG TAB PO SCH (08:11)
[2018-12-24] MEDS: cloNIDine HCl 0.1 MG TAB PO SCH ×2 (08:12→21:15)
[2018-12-24] MEDS: ASPIRIN 81 MG ECTAB PO SCH (08:12)
[2018-12-24] MEDS: PANTOprazole 40 MG TAB PO SCH (08:12)
[2018-12-24] MEDS: LIDOCAINE 5% 1 PATCH TD SCH (08:12)
[2018-12-24] MEDS: NYSTATIN POWDER 15GM BTL EXT SCH ×2 (08:12→21:16)
[2018-12-24] MEDS: LISINOPRIL 5 MG TAB PO SCH (08:12)
[2018-12-24] MEDS: DOCUSATE SODIUM 100 MG CAP PO SCH ×2 (08:12→21:15)
[2018-12-24] MEDS: NICOTINE 7 MG/24 HR TDSY TD SCH (08:12)
[2018-12-24] MEDS: HEPARIN SOD 5,000 UNIT/0.5 ML VIAL SQ SCH ×2 (08:13→21:21)
[2018-12-24] MEDS: DULOXETINE HCL 60 MG CAP PO SCH (08:13)
[2018-12-24] MEDS: METOPROLOL SUCC 25MG EXT REL TAB PO SCH ×2 (08:14→21:14)
[2018-12-24] MEDS: INSULIN ASPART 100 UNITS/ML 3 ML PEN SC SCH ×4 (08:14→21:19)
[2018-12-24] MEDS: MoRPHine SULFATE CR 15 MG TABCR PO SCH ×2 (08:15→21:11)
[2018-12-24] MEDS: LORazepam 1 MG TAB PO PRN ×3 (08:28→23:51)
[2018-12-24] MEDS: CYCLOBENZAPRINE HCL 10 MG TAB PO PRN ×3 (08:58→23:52)
[2018-12-24] MEDS: POLYETHYLENE (MIRALAX) 17 GM PACK PO SCH (12:13)
--- NOTE | 2018-12-24 14:08 | Hospitalist Progress Note ---
Date of Service December 24, 2018 Assessment & Plan (1) Acute on chronic diastolic CHF (congestive heart failure): weight gain on admission from water weight -on the hospital stay since arriving to ED on 12/18/18 the strategy of diuresis was to have patient on Lasix 60mg IV TID which was considered to be a more potent increase from home oral dosing of 60 mg PO TID and the continue home dose Spironolactone 50mg BID with a strict fluid restriction -the diuresis appears to be with adding metolazone 2.5 mg TID with the Lasix dosing which was started as of 12/19/18 -however the addition of metolazone with IV Lasix has exacerbated hypokalemia form diuretic use - serum potassium of 3 on 12/23/18 -have given additional oral potassium supplements and most recent potassium levels on 12/24/18 is 3.2. additional potassium supplements being given -a chart review if accurate shows a weight of 194 kg on 12/01/18. this admission weight on 12/18/18 with 212.3 kg but unclear as to that day's accuracy weight. Generally the weight during this hospital stay has been below 210 kg. Current weight on 12/24/18 as 206.5 kg. -Given patient's frequent hospitalizations and difficulties with compliance to medication, have proposed to the patient that the goal is not to get down to a target weight but to find an oral regimen that can be seen to give overall daily negative urine outputs -will transition to oral Furosemide 60 mg TID with metolazone 2.5 mg TID starting on 12/24/18 to avoid hypokalemia and to seek a stable oral regimen chronic kidney disease stage II to III monitor renal function will anticipate mild acute kidney injury with diuresis (2) Hypotension: blood pressure now stable continue metoprolol and clonidine and spironolactone (3) Pulmonary embolism: history of pulmonary embolism in the past, anticoagulated on coumadin current presence of pulmonary embolism is unknown continue coumadin daily INR on 12/23/18 is 1.8, and will continue coumadin 7 mg daily and give heparin subcutanous for now for DVT prophylaxis INR on 12/24/18 is 1.9, continue coumadin and heparin subcutaneous (4) Supratherapeutic INR: INR > 10.4 on admission Received Vit K 2.5 mg in the ER INR on 12/21/18 is 2.6 which is at goal of target between 2 to 3 and was continued coumadin 5 mg INR on 12/22/18 is 2 and so have increased coumadin to 7 mg INR on 12/23/18 is 1.8, and will continue coumadin 7 mg daily and give heparin subcutanous for now for DVT prophylaxis INR on 12/24/18 is 1.9, continue coumadin and heparin subcutaneous (5) Anemia: stable (6) COPD (chronic obstructive pulmonary disease): CXR showed no acute process Influenza testing negative patient is a chronic tobacco user despite being encouraged to quit in the past Saturate well on room air no evidence of acute exacerbation of COPD Tobacco use disorder have encouraged smoking cessation Hypoventilation associated with obesity on supplemental oxygen at bedtime. Morbid obesity with BMI greater than 60 (7) Erythema: erythema of lower extremities is generally chronic No sign of infection Procalcitonin negative Afebrile and WBC normal Blood cx no growth NO antibiotics at this time left ankle pain left ankle X ray without fracture, soft tissue swelling likely from heavy body weight left ankle has lidocaine patch (8) BPH (benign prostatic hyperplasia): Continue tamsulosin Type 2 diabetes mellitus on correction current use of insulin -continue insulin (9) Chronic pain disorder: Continue routine home pain medications (10) Depression with anxiety: Continue duloxetine (11) DVT prophylaxis: INR on 12/24/18 is 1.9, continue coumadin and heparin subcutaneous CODE STATUS FULL CODE Subjective Patient's potassium has been low as 3.2 and Lasix had been held since yesterday AM. Have discussed with patient that he has been recently making net negative urine output. And the plan is to transition to oral diuretic with metolazone to see if he can continue to be daily net negative. Have also discussed with patient that the target goal for discharge may not be a target weight but to ensure that he can be daily net negative on an oral diuretic regimen. Patient denies chest pain or abdominal pain. He reports of feeling flu like symptoms but no respiratory changes in the vital signs or fever Physical Exam Vital Signs (Past 24 Hours): Last Vital Signs Temp 36.7 C 12/24/18 11:17 Pulse 84 12/24/18 11:17 Resp 19 12/24/18 11:17 BP 112/64 12/24/18 11:17 Pulse Ox 93 12/24/18 11:17 Constitutional: WD/WN, vitals as above + obese Eyes: PERRL, conjunctivae normal, anicteric sclerae EOM intact bilaterally ENMT: external ear and nose normal, oropharynx normal Neck: trachea midline, no thyromegaly normal visual inspection Respiratory: normal respiratory effort, lungs clear to auscultation Cardiovascular: Rate/Rhythm: regular rate and regular rhythm Gastrointestinal (Abdomen): normal bowel sounds, soft, nontender, no hepatosplenomegaly Musculoskeletal: Head/Neck/Chest: normocephalic and head atraumatic Neurologic: PERRL, EOMI, accommodation nl, no face palsy, no dysarthria Psychiatric: Orientation: alert and oriented x 3
[2018-12-24] MEDS: metOLazone 2.5 MG TABLET PO SCH ×2 (14:29→22:18)
[2018-12-24] MEDS: WARFARIN PO SCH (16:12)
[2018-12-24] MEDS: FUROSEMIDE 20 MG TAB PO SCH ×2 (16:13→21:12)
[2018-12-24] MEDS: ONDANSETRON INJ 2 MG/ML 2 ML VIAL IV PRN ×2 (16:30→17:24)
[2018-12-24] MEDS: TIOTROPIUM BROMIDE 5 PUFF/90 MCG INH INH SCH (18:30)
[2018-12-25] MEDS: OXYCODONE HCL IR 5 MG TAB (IMMEDIATE RELEASE) PO PRN ×5 (02:34→22:03)
[2018-12-25] MEDS: TRAMADOL HCL 50 MG TABLET PO PRN ×4 (04:21→19:33)
[2018-12-25 07:46] LABS: Basophils # (auto) 0.03 K/uL (0-0.2); Basophils % (auto) 0.3 %; Eosinophils # (auto) 0.34 K/uL (0-0.5); Eosinophils % (auto) 3.9 %; Hematocrit (blood only) 33.2 % (42-52); Hemoglobin 10.8 g/dL (14.0-18.0); Immature Granulocytes # (auto) 0.13 K/uL (0.00-0.02); Immature Granulocytes % (auto) 1.5 %; Lymphocytes # (auto) 1.85 K/uL (1.2-3.4); Lymphocytes % (auto) 21.3 %; Mean Corpuscular Hgb Conc 32.5 g/dL (32-36); Mean Corpuscular Volume 83.8 fL (80-100); Mean Platelet Volume 9.5 fL (7.4-10.4); Monocytes % (auto) 9.2 %; Neutrophils # (auto) 5.52 K/uL (1.4-6.5); Neutrophils % (auto) 63.8 %; Nucleated RBC # (auto) 0.03 K/uL (0-0); Nucleated RBC % (auto) 0.4 %; Platelet Count 232 K/uL (130-400); RDW Coefficient of Variation 17.2 % (11.5-14.5); RDW Standard Deviation 52.7 fL (36.4-46.3); Red Blood Count 3.96 M/uL (4.7-6.1); White Blood Count 8.67 K/uL (4.8-10.8)
[2018-12-25 07:55] LABS: INR 1.8 (0.9-1.1); Prothrombin Time 17.3 Seconds (9.0-12.0)
[2018-12-25 08:04] LABS: Albumin Level 2.9 gm/dl (3.4-5.0); Calcium 9.2 mg/dl (8.5-10.1); Creatinine Clr Calc Pharmacy 113.6 ml/min; Est GFR (Non-African American) 56.1; Potassium 3.3 mmol/L (3.5-5.1)
[2018-12-25 08:07] LABS: Albumin Globulin Ratio 0.8 (0.9-2); Bilirubin,Total 0.6 mg/dl (0.2-1); Globulin 3.7 gm/dl (2.5-4.0); Total Protein 6.6 gm/dl (6.4-8.2)
[2018-12-25] MEDS: ONDANSETRON INJ 2 MG/ML 2 ML VIAL IV PRN ×2 (08:47→18:01)
[2018-12-25] MEDS: GABAPENTIN 300 MG CAP PO SCH ×3 (08:47→21:09)
[2018-12-25] MEDS: MoRPHine SULFATE CR 15 MG TABCR PO SCH ×2 (08:47→21:17)
[2018-12-25] MEDS: DULOXETINE HCL 60 MG CAP PO SCH (08:47)
[2018-12-25] MEDS: PANTOprazole 40 MG TAB PO SCH (08:47)
[2018-12-25] MEDS: DOCUSATE SODIUM 100 MG CAP PO SCH ×2 (08:47→21:09)
[2018-12-25] MEDS: METOPROLOL SUCC 25MG EXT REL TAB PO SCH ×2 (08:47→21:10)
[2018-12-25] MEDS: LORazepam 1 MG TAB PO PRN ×2 (08:48→18:46)
[2018-12-25] MEDS: SPIRONOLACTONE 25 MG TAB PO SCH ×2 (08:48→17:59)
[2018-12-25] MEDS: MAGNESIUM OXIDE 400 MG TAB PO SCH (08:48)
[2018-12-25] MEDS: NICOTINE 7 MG/24 HR TDSY TD SCH (08:48)
[2018-12-25] MEDS: NYSTATIN POWDER 15GM BTL EXT SCH ×2 (08:48→21:15)
[2018-12-25] MEDS: TIOTROPIUM BROMIDE 5 PUFF/90 MCG INH INH SCH (08:48)
[2018-12-25] MEDS: TAMSULOSIN HCL 0.4 MG CAP PO SCH (08:48)
[2018-12-25] MEDS: metOLazone 2.5 MG TABLET PO SCH ×3 (08:48→21:11)
[2018-12-25] MEDS: CYCLOBENZAPRINE HCL 10 MG TAB PO PRN ×2 (08:48→19:13)
[2018-12-25] MEDS: HEPARIN SOD 5,000 UNIT/0.5 ML VIAL SQ SCH ×2 (08:48→21:13)
[2018-12-25] MEDS: ASPIRIN 81 MG ECTAB PO SCH (08:48)
[2018-12-25] MEDS: POTASSIUM CHLORIDE 10 MEQ TABCR PO SCH (08:48)
[2018-12-25] MEDS: cloNIDine HCl 0.1 MG TAB PO SCH ×2 (08:49→21:08)
[2018-12-25] MEDS: FUROSEMIDE 20 MG TAB PO SCH ×3 (08:49→22:03)
[2018-12-25] MEDS: LIDOCAINE 5% 1 PATCH TD SCH (08:49)
[2018-12-25] MEDS: INSULIN ASPART 100 UNITS/ML 3 ML PEN SC SCH ×4 (08:49→21:18)
[2018-12-25] MEDS: LISINOPRIL 5 MG TAB PO SCH (08:49)
[2018-12-25] MEDS: POLYETHYLENE (MIRALAX) 17 GM PACK PO SCH (12:00)
--- NOTE | 2018-12-25 15:26 | Hospitalist Progress Note ---
Date of Service December 25, 2018 Assessment & Plan (1) Acute on chronic diastolic CHF (congestive heart failure): weight gain on admission from water weight -on the hospital stay since arriving to ED on 12/18/18 the strategy of diuresis was to have patient on Lasix 60mg IV TID which was considered to be a more potent increase from home oral dosing of 60 mg PO TID and the continue home dose Spironolactone 50mg BID with a strict fluid restriction -the diuresis appears to be with adding metolazone 2.5 mg TID with the Lasix dosing which was started as of 12/19/18 -however the addition of metolazone with IV Lasix has exacerbated hypokalemia form diuretic use - serum potassium of 3 on 12/23/18 -have given additional oral potassium supplements and most recent potassium levels on 12/24/18 is 3.2. additional potassium supplements being given -a chart review if accurate shows a weight of 194 kg on 12/01/18. this admission weight on 12/18/18 with 212.3 kg but unclear as to that day's accuracy weight. Generally the weight during this hospital stay has been below 210 kg. Current weight on 12/24/18 as 206.5 kg. -Given patient's frequent hospitalizations and difficulties with compliance to medication, have proposed to the patient that the goal is not to get down to a target weight but to find an oral regimen that can be seen to give overall daily negative urine outputs -will transition to oral Furosemide 60 mg TID with metolazone 2.5 mg TID starting on 12/24/18 to avoid hypokalemia and to seek a stable oral regimen -continue oral diuretics and monitor the urine outputs chronic kidney disease stage II to III monitor renal function (2) Hypotension: blood pressure stable continue metoprolol and clonidine and spironolactone (3) Pulmonary embolism: history of pulmonary embolism in the past, anticoagulated on coumadin current presence of pulmonary embolism is unknown continue coumadin daily INR on 12/23/18 is 1.8, and will continue coumadin 7 mg daily and give heparin subcutanous for now for DVT prophylaxis INR on 12/24/18 is 1.9, continue coumadin and heparin subcutaneous (4) Supratherapeutic INR: INR > 10.4 on admission Received Vit K 2.5 mg in the ER INR on 12/21/18 is 2.6 which is at goal of target between 2 to 3 and was continued coumadin 5 mg INR on 12/22/18 is 2 and so have increased coumadin to 7 mg INR on 12/23/18 is 1.8, and will continue coumadin 7 mg daily and give heparin subcutanous for now for DVT prophylaxis INR on 12/24/18 is 1.9, continue coumadin and heparin subcutaneous INR on 12/25/18 is 1.8, increase coumadin to 7.5 mg and continue heparin subcut aneous (5) Anemia: stable (6) COPD (chronic obstructive pulmonary disease): CXR showed no acute process Influenza testing negative patient is a chronic tobacco user despite being encouraged to quit in the past inhaler with Spiriva Tobacco use disorder have encouraged smoking cessation Hypoventilation associated with obesity on supplemental oxygen at bedtime. Morbid obesity with BMI greater than 60 (7) Erythema: erythema of lower extremities is generally chronic No sign of infection Procalcitonin negative Afebrile and WBC normal Blood cx no growth NO antibiotics at this time left ankle pain left ankle X ray without fracture, soft tissue swelling likely from heavy body weight left ankle has lidocaine patch (8) BPH (benign prostatic hyperplasia): Continue tamsulosin Type 2 diabetes mellitus on intermediate current use of insulin -continue insulin (9) Chronic pain disorder: Continue routine home pain medications (10) Depression with anxiety: Continue duloxetine (11) DVT prophylaxis: INR on 12/24/18 is 1.8, continue coumadin as 7.5 mg and heparin subcutaneous CODE STATUS FULL CODE Subjective Patient denies chest pain or abdominal pain. He reports he is not urinating as much. Hospitalist doctor advised further time and assessment with oral diuretic regimen of Lasix with metolazone. Physical Exam Vital Signs (Past 24 Hours): Last Vital Signs Temp 36.6 C 12/25/18 11:31 Pulse 88 12/25/18 11:31 Resp 20 12/25/18 11:31 BP 128/66 12/25/18 11:31 Pulse Ox 95 12/25/18 11:31 Constitutional: WD/WN, vitals as above + obese Eyes: PERRL, conjunctivae normal, anicteric sclerae EOM intact bilaterally ENMT: external ear and nose normal, oropharynx normal Neck: trachea midline, no thyromegaly normal visual inspection Respiratory: normal respiratory effort, lungs clear to auscultation Cardiovascular: Rate/Rhythm: regular rate and regular rhythm Gastrointestinal (Abdomen): normal bowel sounds, soft, nontender, no hepatosplenomegaly Musculoskeletal: Head/Neck/Chest: normocephalic and head atraumatic Neurologic: PERRL, EOMI, accommodation nl, no face palsy, no dysarthria Psychiatric: Orientation: alert and oriented x 3
[2018-12-25] MEDS ORDERED: WARFARIN SOD 7.5 MG TAB PO SCH (16:00)
[2018-12-26] MEDS: OXYCODONE HCL IR 5 MG TAB (IMMEDIATE RELEASE) PO PRN ×5 (02:18→18:59)
[2018-12-26] MEDS: TRAMADOL HCL 50 MG TABLET PO PRN ×5 (04:01→22:32)
[2018-12-26] MEDS: ONDANSETRON INJ 2 MG/ML 2 ML VIAL IV PRN ×3 (04:03→23:25)
[2018-12-26] MEDS ORDERED: POTASSIUM CHLORIDE 20 MEQ TABCR PO ONE (07:45)
[2018-12-26] MEDS: SPIRONOLACTONE 25 MG TAB PO SCH ×2 (08:46→16:31)
[2018-12-26] MEDS: DULOXETINE HCL 60 MG CAP PO SCH (08:47)
[2018-12-26] MEDS: DOCUSATE SODIUM 100 MG CAP PO SCH ×2 (08:47→21:00)
[2018-12-26] MEDS: POTASSIUM CHLORIDE 10 MEQ TABCR PO SCH (08:47)
[2018-12-26] MEDS: TAMSULOSIN HCL 0.4 MG CAP PO SCH (08:47)
[2018-12-26] MEDS: NYSTATIN POWDER 15GM BTL EXT SCH ×2 (08:47→21:00)
[2018-12-26] MEDS: cloNIDine HCl 0.1 MG TAB PO SCH (08:47)
[2018-12-26] MEDS: ASPIRIN 81 MG ECTAB PO SCH (08:47)
[2018-12-26] MEDS: MoRPHine SULFATE CR 15 MG TABCR PO SCH ×2 (08:47→20:59)
[2018-12-26] MEDS: TORSEMIDE 20 MG TAB PO SCH ×3 (08:47→20:59)
[2018-12-26] MEDS: HEPARIN SOD 5,000 UNIT/0.5 ML VIAL SQ SCH (08:47)
[2018-12-26] MEDS: LIDOCAINE 5% 1 PATCH TD SCH (08:48)
[2018-12-26] MEDS: GABAPENTIN 300 MG CAP PO SCH ×3 (08:48→20:59)
[2018-12-26] MEDS: MAGNESIUM OXIDE 400 MG TAB PO SCH (08:48)
[2018-12-26] MEDS: PANTOprazole 40 MG TAB PO SCH (08:48)
[2018-12-26] MEDS: TIOTROPIUM BROMIDE 5 PUFF/90 MCG INH INH SCH (08:48)
[2018-12-26] MEDS: NICOTINE 7 MG/24 HR TDSY TD SCH (08:48)
[2018-12-26] MEDS: metOLazone 2.5 MG TABLET PO SCH ×2 (08:49→12:41)
[2018-12-26] MEDS: INSULIN ASPART 100 UNITS/ML 3 ML PEN SC SCH ×4 (08:49→21:01)
[2018-12-26] MEDS: LISINOPRIL 5 MG TAB PO SCH (08:49)
[2018-12-26] MEDS: LORazepam 1 MG TAB PO PRN ×2 (08:49→16:25)
[2018-12-26] MEDS: METOPROLOL SUCC 25MG EXT REL TAB PO SCH ×2 (08:49→20:59)
[2018-12-26] MEDS: CYCLOBENZAPRINE HCL 10 MG TAB PO PRN ×2 (08:49→16:09)
[2018-12-26] MEDS: POLYETHYLENE (MIRALAX) 17 GM PACK PO SCH (12:45)
--- NOTE | 2018-12-26 14:11 | Hospitalist Progress Note ---
Date of Service December 26, 2018 Assessment & Plan (1) Acute on chronic diastolic CHF (congestive heart failure): weight gain on admission from water weight -on the hospital stay since arriving to ED on 12/18/18 the strategy of diuresis was to have patient on Lasix 60mg IV TID which was considered to be a more potent increase from home oral dosing of 60 mg PO TID and the continue home dose Spironolactone 50mg BID with a strict fluid restriction -the diuresis appears to be with adding metolazone 2.5 mg TID with the Lasix dosing which was started as of 12/19/18 -however the addition of metolazone with IV Lasix has exacerbated hypokalemia form diuretic use - serum potassium of 3 on 12/23/18 -have given additional oral potassium supplements and most recent potassium levels on 12/24/18 is 3.2. additional potassium supplements being given -a chart review if accurate shows a weight of 194 kg on 12/01/18. this admission weight on 12/18/18 with 212.3 kg but unclear as to that day's accuracy weight. Generally the weight during this hospital stay has been below 210 kg. Current weight on 12/24/18 as 206.5 kg. -Given patient's frequent hospitalizations and difficulties with compliance to medication, have proposed to the patient that the goal is not to get down to a target weight but to find an oral regimen that can be seen to give overall daily negative urine outputs -will transition to oral Furosemide 60 mg TID with metolazone 2.5 mg TID starting on 12/24/18 to avoid hypokalemia and to seek a stable oral regimen -continue oral diuretics and monitor the urine outputs chronic kidney disease stage II to III monitor renal function (2) Hypotension: blood pressure stable continue metoprolol and clonidine and spironolactone (3) Pulmonary embolism: history of pulmonary embolism in the past, anticoagulated on coumadin current presence of pulmonary embolism is unknown continue coumadin daily INR on 12/23/18 is 1.8, and will continue coumadin 7 mg daily and give heparin subcutanous for now for DVT prophylaxis INR on 12/24/18 is 1.9, continue coumadin and heparin subcutaneous (4) Supratherapeutic INR: INR > 10.4 on admission Received Vit K 2.5 mg in the ER INR on 12/21/18 is 2.6 which is at goal of target between 2 to 3 and was continued coumadin 5 mg INR on 12/22/18 is 2 and so have increased coumadin to 7 mg INR on 12/23/18 is 1.8, and will continue coumadin 7 mg daily and give heparin subcutanous for now for DVT prophylaxis INR on 12/24/18 is 1.9, continue coumadin and heparin subcutaneous INR on 12/25/18 is 1.8, increase coumadin to 7.5 mg and continue heparin subcut aneous (5) Anemia: stable (6) COPD (chronic obstructive pulmonary disease): CXR showed no acute process Influenza testing negative patient is a chronic tobacco user despite being encouraged to quit in the past inhaler with Spiriva Tobacco use disorder have encouraged smoking cessation Hypoventilation associated with obesity on supplemental oxygen at bedtime. Morbid obesity with BMI greater than 60 (7) Erythema: erythema of lower extremities is generally chronic No sign of infection Procalcitonin negative Afebrile and WBC normal Blood cx no growth NO antibiotics at this time left ankle pain left ankle X ray without fracture, soft tissue swelling likely from heavy body weight left ankle has lidocaine patch (8) BPH (benign prostatic hyperplasia): Continue tamsulosin Type 2 diabetes mellitus on longterm current use of insulin -continue insulin (9) Chronic pain disorder: Continue routine home pain medications (10) Depression with anxiety: Continue duloxetine (11) DVT prophylaxis: INR on 12/24/18 is 1.8, continue coumadin as 7.5 mg and heparin subcutaneous CODE STATUS FULL CODE Physical Exam Vital Signs (Past 24 Hours): Last Vital Signs Temp 36.7 C 12/26/18 11:26 Pulse 89 12/26/18 11:26 Resp 20 12/26/18 11:26 BP 136/80 12/26/18 11:26 Pulse Ox 91 12/26/18 11:26 Constitutional: WD/WN, vitals as above + obese Eyes: PERRL, conjunctivae normal, anicteric sclerae EOM intact bilaterally ENMT: external ear and nose normal, oropharynx normal Neck: trachea midline, no thyromegaly normal visual inspection Respiratory: normal respiratory effort, lungs clear to auscultation Cardiovascular: Rate/Rhythm: regular rate and regular rhythm Gastrointestinal (Abdomen): normal bowel sounds, soft, nontender, no hepatosplenomegaly Musculoskeletal: Head/Neck/Chest: normocephalic and head atraumatic Neurologic: PERRL, EOMI, accommodation nl, no face palsy, no dysarthria Psychiatric: Orientation: alert and oriented x 3
[2018-12-26 14:47] LABS: INR 1.7 (0.9-1.1); Prothrombin Time 16.7 Seconds (9.0-12.0)
[2018-12-26 14:54] LABS: BUN Creatinine Ratio 18.9 (10-20); Calcium 9.2 mg/dl (8.5-10.1); Creatinine Clr Calc Pharmacy 79.3 ml/min; Est GFR (African American) 41.9; Est GFR (Non-African American) 36.1; Potassium 3.7 mmol/L (3.5-5.1)
[2018-12-26] MEDS ORDERED: Heparin IV Standard *NO* Bolus IV ONE (15:09)
--- NOTE | 2018-12-26 15:11 | XRay Report ---
XR chest 2V routine HISTORY: 48 years-old Male shortness of breath acute shortness of breath COMPARISON: Chest radiograph 12/18/2018 TECHNIQUE: PA and lateral views of the chest FINDINGS: Cardiomediastinal and hilar silhouettes are unchanged. Minimal linear subsegmental left basilar opaci ties are noted. Mild blunting of the right costophrenic angle is unchanged suggestive of scarring. No pneumothorax, large pleural effusion or overt pulmonary edema. IMPRESSION: 1. No acute process. 2. Chronic blunting of the right costophrenic angle. 3. Subsegmental left basilar opacities suggest probable atelectasis. The above report was generated using voice recognition software. It may contain grammatical, syntax o r spelling errors. Electronically signed by: Kem Apodaca M.D. 12/26/2018 3:10 PM
[2018-12-26] MEDS ORDERED: WARFARIN SOD 4 MG TAB PO SCH (16:00)
[2018-12-26] MEDS: Heparin Adult STANDARD Wt-Based Dextrose 5% 25,000 units/500 mL IV SCH ×2 (16:08→16:25)
--- NOTE | 2018-12-26 17:17 | Hospitalist Progress Note ---
Date of Service December 26, 2018 Assessment & Plan (1) Acute on chronic diastolic CHF (congestive heart failure): weight gain on admission from water weight -on the hospital stay since arriving to ED on 12/18/18 the strategy of diuresis was to have patient on Lasix 60mg IV TID which was considered to be a more potent increase from home oral dosing of 60 mg PO TID and the continue home dose Spironolactone 50mg BID with a strict fluid restriction -the diuresis appeared to be working with adding metolazone 2.5 mg TID with the IV Lasix dosing which was started as of 12/19/18 -however the addition of metolazone with IV Lasix has exacerbated hypokalemia -a chart review if accurate shows a weight of 194 kg on 12/01/18. this admission weight on 12/18/18 with 212.3 kg but unclear as to that day's accuracy weight. Generally the weight during this hospital stay has been below 210 kg. Current weight on 12/24/18 as 206.5 kg; Given patient's frequent hospitalizations and difficulties with compliance to medication, have proposed to the patient that the goal is not to get down to a target weight but to find an oral regimen that can be seen to give overall daily negative urine outputs -was transitioned from IV Furosemide 60 mg TID to oral Furosemide 60 mg TID with metolazone 2.5 mg TID starting on 12/24/18 to avoid hypokalemia and to seek a stable oral regimen -however weight tyler and as of 12/26/18 weight was 209.6 kg, am transitioning to torsemide 40 mg TID with metolzone chronic kidney disease stage II to III monitor acute kidney injury with diuretics creatinine tyler to 2.1 on 12/26/18 hold off metolazone for now monitor renal function (2) Hypotension: blood pressure stable continue metoprolol and spironolactone 50 mg BID (3) Pulmonary embolism: history of pulmonary embolism in the past, anticoagulated on coumadin current presence of pulmonary embolism is unknown continue coumadin daily INR on 12/23/18 is 1.8, and will continue coumadin 7 mg daily and give heparin subcutanous for now for DVT prophylaxis INR on 12/24/18 is 1.9, continue coumadin and heparin subcutaneous INR on 12/25/18 is 1.8, increase coumadin to 7.5 mg and continue heparin subcutaneous INR on 12/26/18 is 1.7, increase coumadin to 8 mg daily, given hypoxia with oxygenation of 88% with no lung infiltrates, will protect from pulmonary embolism by starting heparin drip as coumadin level has been subtherapeutic INR on 12/26/18 is 1.7, increase coumadin to 8 mg daily, given hypoxia with oxygenation of 88% with no lung infiltrates, will protect from pulmonary embolism by starting heparin drip instead of subcutaneous heparin as coumadin level has been subtherapeutic for several days (4) Supratherapeutic INR: INR > 10.4 on admission Received Vit K 2.5 mg in the ER INR on 12/21/18 is 2.6 which is at goal of target between 2 to 3 and was continued coumadin 5 mg INR on 12/22/18 is 2 and so have increased coumadin to 7 mg INR on 12/23/18 is 1.8, and will continue coumadin 7 mg daily and give heparin subcutanous for now for DVT prophylaxis INR on 12/24/18 is 1.9, continue coumadin and heparin subcutaneous INR on 12/25/18 is 1.8, increase coumadin to 7.5 mg and continue heparin subcutaneous INR on 12/26/18 is 1.7, increase coumadin to 8 mg daily, given hypoxia with oxygenation of 88% with no lung infiltrates, will protect from pulmonary embolism by starting heparin drip instead of subcutaneous heparin as coumadin level has been subtherapeutic for several days (5) Anemia: stable (6) COPD (chronic obstructive pulmonary disease): CXR showed no acute process Influenza testing negative patient is a chronic tobacco user despite being encouraged to quit in the past inhaler with Spiriva will start nebulizer treatments as scheduled because, on nasal cannula during the daytime on 12/26/18 because oxygen level 88% Tobacco use disorder have encouraged smoking cessation Hypoventilation associated with obesity -on supplemental oxygen at bedtime. -on nasal cannula during the daytime on 12/26/18 because oxygen level 88% Morbid obesity with BMI greater than 60 -have expressed concerns to patient that excess eating is causing coumadin levels to be low when in the hospital despite increasing the coumadin dosing (7) Erythema: erythema of lower extremities is generally chronic No sign of infection Procalcitonin negative Afebrile and WBC normal Blood cx no growth NO antibiotics at this time left ankle pain left ankle X ray without fracture, soft tissue swelling likely from heavy body weight (8) BPH (benign prostatic hyperplasia): Continue tamsulosin Type 2 diabetes mellitus on long-term current use of insulin -continue insulin (9) Chronic pain disorder: Continue routine home pain medications (10) Depression with anxiety: Continue duloxetine (11) DVT prophylaxis: heparin drip and bridge to INR 2 to 3 with coumadin CODE STATUS FULL CODE Subjective Patient with cough. Chest Xray with lungs clear. Patient on nasal cannula as oxygen level on pulse oximetry 88%. Patient denies chest pain. no abdominal pain. no vomiting. eats extra portions of meals as per patient's nurse Physical Exam Vital Signs (Past 24 Hours): Last Vital Signs Temp 36.8 C 12/26/18 15:00 Pulse 102 H 12/26/18 15:00 Resp 20 12/26/18 15:00 BP 116/69 12/26/18 15:00 Pulse Ox 88 L 12/26/18 15:00 Constitutional: + obese Eyes: PERRL, conjunctivae normal, anicteric sclerae EOM intact bilaterally ENMT: external ear and nose normal, oropharynx normal Neck: normal visual inspection Respiratory: normal respiratory effort, lungs clear to auscultation Cardiovascular: Rate/Rhythm: regular rate and regular rhythm Gastrointestinal (Abdomen): normal bowel sounds, soft, nontender, no hepatosplenomegaly Musculoskeletal: Head/Neck/Chest: normocephalic and head atraumatic Neurologic: PERRL, EOMI, accommodation nl, no face palsy, no dysarthria Psychiatric: Orientation: alert, oriented x 3, oriented to person and oriented to place
[2018-12-26] MEDS: ALBUT/IPRATROP 3MG/0.5MG NEB 3 ML VIAL NEB SCH (19:33)
[2018-12-26 22:45] LABS: Partial Thromboplastin Ratio 2.5
[2018-12-27] MEDS: OXYCODONE HCL IR 5 MG TAB (IMMEDIATE RELEASE) PO PRN (00:02)
[2018-12-27] MEDS: Heparin Adult STANDARD Wt-Based Dextrose 5% 25,000 units/500 mL IV SCH (03:30)
[2018-12-27] MEDS ORDERED: PROMETHAZINE HCL 12.5 MG in SODIUM CHLORIDE 0.9% 50 ML IV ONE (04:00)
[2018-12-27 06:48] LABS: BUN Creatinine Ratio 16.9 (10-20); Calcium 9.8 mg/dl (8.5-10.1); Creatinine Clr Calc Pharmacy 58.7 ml/min; Est GFR (African American) 29.1; Est GFR (Non-African American) 25.1; Potassium 3.9 mmol/L (3.5-5.1)
[2018-12-27 06:56] LABS: INR 1.6 (0.9-1.1); Partial Thromboplastin Ratio 2.7; Prothrombin Time 15.9 Seconds (9.0-12.0)
[2018-12-27 06:59] LABS: Partial Thromboplastin Time 72.9 Seconds (21.0-31.0)
[2018-12-27] MEDS: ALBUT/IPRATROP 3MG/0.5MG NEB 3 ML VIAL NEB SCH ×2 (07:06→19:22)
[2018-12-27] MEDS: ONDANSETRON INJ 2 MG/ML 2 ML VIAL IV PRN ×3 (07:40→20:36)
[2018-12-27] MEDS ORDERED: POLYETHYLENE (MIRALAX) 17 GM PACK PO PRN (08:42)
[2018-12-27] MEDS ORDERED: MAGNESIUM HYDROXIDE SUSP 30 ML UDC PO PRN (08:42)
[2018-12-27] MEDS ORDERED: LACTULOSE SYRUP 30 GM/45 ML UDP PO STA (08:43)
--- NOTE | 2018-12-27 09:36 | XRay Report ---
XR abdomen 2V w PA chest CLINICAL HISTORY: check for stool burden pain COMPARISON STUDY: 12/26/2018 FINDINGS: Mild stable cardiomegaly. Unchanging bibasilar atelectatic change. Mid and upper lungs are clear. Nonobstructive bowel pattern. Increased fecal load throughout the colon. No evidence for fecal impact ion. Metallic pellet within the right lower quadrant IMPRESSION: 1. Increased colonic fecal load consistent with a component of fecal stasis.. 2. No evidence for fecal impaction. 3. Chronic bibasilar lung change The above report was generated using voice recognition software. It may contain grammatical, syntax or spelling errors. Electronically signed by: Owen Flowers M.D. 12/27/2018 9:35 AM
[2018-12-27] MEDS: INSULIN ASPART 100 UNITS/ML 3 ML PEN SC SCH ×4 (09:43→20:42)
[2018-12-27] MEDS: SPIRONOLACTONE 25 MG TAB PO SCH ×2 (10:29→17:37)
[2018-12-27] MEDS: ASPIRIN 81 MG ECTAB PO SCH (10:30)
[2018-12-27] MEDS: NYSTATIN POWDER 15GM BTL EXT SCH ×2 (10:30→20:45)
[2018-12-27] MEDS: TAMSULOSIN HCL 0.4 MG CAP PO SCH (10:30)
[2018-12-27] MEDS: MAGNESIUM OXIDE 400 MG TAB PO SCH (10:30)
[2018-12-27] MEDS: POTASSIUM CHLORIDE 10 MEQ TABCR PO SCH (10:30)
[2018-12-27] MEDS: DOCUSATE SODIUM 100 MG CAP PO SCH ×2 (10:30→20:45)
[2018-12-27] MEDS: DULOXETINE HCL 60 MG CAP PO SCH (10:30)
[2018-12-27] MEDS: LIDOCAINE 5% 1 PATCH TD SCH (10:30)
[2018-12-27] MEDS: PANTOprazole 40 MG TAB PO SCH (10:31)
[2018-12-27] MEDS: NICOTINE 7 MG/24 HR TDSY TD SCH (10:31)
[2018-12-27] MEDS: TIOTROPIUM BROMIDE 5 PUFF/90 MCG INH INH SCH (10:31)
[2018-12-27] MEDS: GABAPENTIN 300 MG CAP PO SCH ×3 (10:31→20:45)
[2018-12-27] MEDS: METOPROLOL SUCC 25MG EXT REL TAB PO SCH ×2 (10:32→20:46)
[2018-12-27] MEDS: POLYETHYLENE (MIRALAX) 17 GM PACK PO SCH (12:03)
[2018-12-27 13:13] LABS: Basophils # (auto) 0.03 K/uL (0-0.2); Basophils % (auto) 0.2 %; Eosinophils % (auto) 0.6 %; Hematocrit (blood only) 36.1 % (42-52); Immature Granulocytes # (auto) 0.15 K/uL (0.00-0.02); Immature Granulocytes % (auto) 0.8 %; Lymphocytes % (auto) 10.7 %; Mean Corpuscular Hgb Conc 33.2 g/dL (32-36); Mean Corpuscular Volume 81.9 fL (80-100); Mean Platelet Volume 9.8 fL (7.4-10.4); Monocytes # (auto) 0.85 K/uL (0.11-0.59); Monocytes % (auto) 4.8 %; Neutrophils # (auto) 14.77 K/uL (1.4-6.5); Neutrophils % (auto) 82.9 %; Platelet Count 264 K/uL (130-400); RDW Coefficient of Variation 17.5 % (11.5-14.5); RDW Standard Deviation 52.5 fL (36.4-46.3); Red Blood Count 4.41 M/uL (4.7-6.1)
[2018-12-27 13:34] LABS: Partial Thromboplastin Ratio 2.8
[2018-12-27 14:13] LABS: Partial Thromboplastin Time 76.6 Seconds (21.0-31.0)
[2018-12-27] MEDS ORDERED: PANTOprazole 40 MG in SYRINGE 0 ML IV ONE (14:30)
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
--- NOTE | 2018-12-27 15:53 | Hospitalist Progress Note ---
Date of Service December 27, 2018 Assessment & Plan (1) Acute on chronic diastolic CHF (congestive heart failure): weight gain on admission from water weight -on the hospital stay since arriving to ED on 12/18/18 the strategy of diuresis was to have patient on Lasix 60mg IV TID which was considered to be a more potent increase from home oral dosing of 60 mg PO TID and the continue home dose Spironolactone 50mg BID with a strict fluid restriction -the diuresis appeared to be working with adding metolazone 2.5 mg TID with the IV Lasix dosing which was started as of 12/19/18 -however the addition of metolazone with IV Lasix has exacerbated hypokalemia -a chart review if accurate shows a weight of 194 kg on 12/01/18. this admission weight on 12/18/18 with 212.3 kg but unclear as to that day's accuracy weight. Generally the weight during this hospital stay has been below 210 kg. Current weight on 12/24/18 as 206.5 kg; Given patient's frequent hospitalizations and difficulties with compliance to medication, have proposed to the patient that the goal is not to get down to a target weight but to find an oral regimen that can be seen to give overall daily negative urine outputs -was transitioned from IV Furosemide 60 mg TID to oral Furosemide 60 mg TID with metolazone 2.5 mg TID starting on 12/24/18 to avoid hypokalemia and to seek a stable oral regimen -however weight tyler and as of 12/26/18 weight was 209.6 kg, and attempt to transitioning to torsemide 40 mg TID with metolazone -diuretics held on 12/27/18 as MAHAMED continues to rise to 2.84; patient also increased weight to 210.5 kg, trend renal function before restarting diuretics chronic kidney disease stage II to III acute kidney injury with diuretics hold diuretics for now (2) Hypotension: blood pressure stable continue metoprolol and spironolactone 50 mg BID (3) Pulmonary embolism: history of pulmonary embolism in the past, anticoagulated on coumadin current presence of pulmonary embolism is unknown continue coumadin daily INR on 12/23/18 is 1.8, and will continue coumadin 7 mg daily and give heparin subcutanous for now for DVT prophylaxis INR on 12/24/18 is 1.9, continue coumadin and heparin subcutaneous INR on 12/25/18 is 1.8, increase coumadin to 7.5 mg and continue heparin subcutaneous INR on 12/26/18 is 1.7, increase coumadin to 8 mg daily, given hypoxia with oxygenation of 88% with no lung infiltrates, will protect from pulmonary embol ism by starting heparin drip as coumadin level has been subtherapeutic INR on 12/26/18 is 1.7, increase coumadin to 8 mg daily, given hypoxia with oxygenation of 88% with no lung infiltrates, will protect from pulmonary embolism by starting heparin drip instead of subcutaneous heparin as coumadin level has been subtherapeutic for several days (4) Supratherapeutic INR: INR > 10.4 on admission Received Vit K 2.5 mg in the ER INR on 12/21/18 is 2.6 which is at goal of target between 2 to 3 and was continued coumadin 5 mg INR on 12/22/18 is 2 and so have increased coumadin to 7 mg INR on 12/23/18 is 1.8, and will continue coumadin 7 mg daily and give heparin subcutanous for now for DVT prophylaxis INR on 12/24/18 is 1.9, continue coumadin and heparin subcutaneous INR on 12/25/18 is 1.8, increase coumadin to 7.5 mg and continue heparin subcutaneous INR on 12/26/18 is 1.7, increase coumadin to 8 mg daily, given hypoxia with oxygenation of 88% with no lung infiltrates, will protect from pulmonary embolism by starting heparin drip instead of subcutaneous heparin as coumadin level has been subtherapeutic for several days -Patient had been on heparin drip since 12/26/18 afternoon because of continued decrease in INR and history of thromboembolism of pulmonary embolism in the past. INR on 12/27/18 is even lower at 1.6 despite recent days of increased coumadin. Patient more nauseated today. Then reported to doctor that he has not had bowel movements since Wednesday12/21/18. He declined the bowel regimen medications or enema. Patient had abdominal X ray with stool burden but no fecal impaction. Then around 1PM when CBC and PTT were drawn because of the heparin drip patient had episode of dark black color vomit. Heparin drip stopped. Coumadin to be held. GI consult requested. Patient continues to be awake and alert and agreeable to enema. (5) Anemia: monitor CBC (6) COPD (chronic obstructive pulmonary disease): CXR showed no acute process Influenza testing negative patient is a chronic tobacco user despite being encouraged to quit in the past inhaler with Spiriva start nebulizer treatments as scheduled because, on nasal cannula during the daytime on 12/26/18 because oxygen level 88%, continue Tobacco use disorder have encouraged smoking cessation Hypoventilation associated with obesity -on supplemental oxygen at bedtime. -on nasal cannula during the daytime on 12/26/18 because oxygen level 88% Morbid obesity with BMI greater than 60 -have expressed concerns to patient that excess eating is causing coumadin levels to be low when in the hospital despite increasing the coumadin dosing (7) Erythema: erythema of lower extremities is generally chronic left ankle X ray without fracture, soft tissue swelling likely from heavy body weight (8) BPH (benign prostatic hyperplasia): Continue tamsulosin Type 2 diabetes mellitus on detention current use of insulin -continue insulin (9) Chronic pain disorder: Continue routine home pain medications; hold narcotics until bowel movements (10) Depression with anxiety: Continue duloxetine (11) DVT prophylaxis: hold off systemic anticoagulation for now while monitoring for possible GI bleed CODE STATUS FULL CODE Subjective Today, torsemide and metolazone held because of acute kidney injury with creatinine rising to 2.84. patient also increased weight to 210.5 kg. Patient had been on heparin drip since 12/26/18 afternoon because of continued decrease in INR and history of thromboembolism of pulmonary embolism in the past. INR on 12/27/18 is even lower at 1.6 despite recent days of increased coumadin. Patient more nauseated today. Then reported to doctor that he has not had bowel movements since Wednesday12/21/18. He declined the bowel regimen medications or enema. Patient had abdominal X ray with stool burden but no fecal impaction. Then around 1PM when CBC and PTT were drawn because of the heparin drip patient had episode of dark black color vomit. Heparin drip stopped. Coumadin to be held. GI consult requested. Patient continues to be awake and alert and agreeable to enema. Physical Exam Vital Signs (Past 24 Hours): Last Vital Signs Temp 36.8 C 12/27/18 11:32 Pulse 92 H 12/27/18 11:32 Resp 20 12/27/18 11:32 BP 151/81 H 12/27/18 11:32 Pulse Ox 98 12/27/18 11:32 Constitutional: + obese Eyes: PERRL, conjunctivae normal, anicteric sclerae EOM intact bilaterally ENMT: external ear and nose normal, oropharynx normal Neck: normal visual inspection Respiratory: normal respiratory effort, lungs clear to auscultation Cardiovascular: Rate/Rhythm: regular rate and regular rhythm Gastrointestinal (Abdomen): normal bowel sounds, soft, nontender, no hepatosplenomegaly Musculoskeletal: Head/Neck/Chest: normocephalic and head atraumatic Neurologic: PERRL, EOMI, accommodation nl, no face palsy, no dysarthria Psychiatric: Orientation: alert, oriented x 3, oriented to person and oriented to place
[2018-12-27] MEDS ORDERED: TAP WATER ENEMA PR ONE (16:00)
[2018-12-27] MEDS: LORazepam 1 MG TAB PO PRN (16:15)
[2018-12-27] MEDS: PANTOprazole 40 MG in SYRINGE 0 ML IV SCH (20:38)
[2018-12-27] MEDS: TRAMADOL HCL 50 MG TABLET PO PRN (21:03)
[2018-12-27 21:17] LABS: Basophils # (auto) 0.02 K/uL (0-0.2); Basophils % (auto) 0.1 %; Eosinophils # (auto) 0.05 K/uL (0-0.5); Eosinophils % (auto) 0.2 %; Hematocrit (blood only) 35.5 % (42-52); Hemoglobin 11.7 g/dL (14.0-18.0); Immature Granulocytes # (auto) 0.08 K/uL (0.00-0.02); Immature Granulocytes % (auto) 0.4 %; Lymphocytes % (auto) 9.6 %; Mean Corpuscular Volume 83.5 fL (80-100); Monocytes # (auto) 0.96 K/uL (0.11-0.59); Monocytes % (auto) 4.6 %; Neutrophils # (auto) 17.68 K/uL (1.4-6.5); Neutrophils % (auto) 85.1 %; Nucleated RBC # (auto) 0.02 K/uL (0-0); Nucleated RBC % (auto) 0.1 %; Platelet Count 274 K/uL (130-400); RDW Coefficient of Variation 17.5 % (11.5-14.5); Red Blood Count 4.25 M/uL (4.7-6.1); White Blood Count 20.79 K/uL (4.8-10.8)
[2018-12-28] MEDS: ALBUT/IPRATROP 3MG/0.5MG NEB 3 ML VIAL NEB SCH ×4 (02:12→15:52)
[2018-12-28] MEDS: ONDANSETRON INJ 2 MG/ML 2 ML VIAL IV PRN ×2 (05:15→15:31)
[2018-12-28] MEDS: LORazepam 1 MG TAB PO PRN ×3 (05:15→20:43)
[2018-12-28 06:05] LABS: Mean Corpuscular Hgb Conc 32.6 g/dL (32-36); Mean Platelet Volume 10.2 fL (7.4-10.4); Platelet Count 255 K/uL (130-400)
[2018-12-28 06:15] LABS: INR 1.3 (0.9-1.1); Partial Thromboplastin Ratio 1.1; Partial Thromboplastin Time 29.1 Seconds (21.0-31.0); Prothrombin Time 13.5 Seconds (9.0-12.0)
[2018-12-28 06:32] LABS: Albumin Globulin Ratio 0.7 (0.9-2); Albumin Level 2.9 gm/dl (3.4-5.0); BUN Creatinine Ratio 25.2 (10-20); Bilirubin,Total 0.9 mg/dl (0.2-1); Calcium 9.7 mg/dl (8.5-10.1); Creatinine Clr Calc Pharmacy 99.5 ml/min; Est GFR (African American) 54.8; Est GFR (Non-African American) 47.3; Globulin 3.9 gm/dl (2.5-4.0); Potassium 3.5 mmol/L (3.5-5.1); Total Protein 6.8 gm/dl (6.4-8.2)
[2018-12-28 06:36] LABS: Hemoglobin 11.4 g/dL (14.0-18.0); Mean Corpuscular Volume 82.5 fL (80-100); RDW Coefficient of Variation 17.5 % (11.5-14.5); RDW Standard Deviation 52.7 fL (36.4-46.3); Red Blood Count 4.24 M/uL (4.7-6.1); White Blood Count 18.02 K/uL (4.8-10.8)
[2018-12-28 06:37] LABS: Basophils # (auto) 0.03 K/uL (0-0.2); Basophils % (auto) 0.2 %; Eosinophils # (auto) 0.13 K/uL (0-0.5); Eosinophils % (auto) 0.7 %; Immature Granulocytes % (auto) 0.6 %; Lymphocytes # (auto) 2.09 K/uL (1.2-3.4); Lymphocytes % (auto) 11.6 %; Monocytes # (auto) 1.13 K/uL (0.11-0.59); Monocytes % (auto) 6.3 %; Neutrophils # (auto) 14.54 K/uL (1.4-6.5); Neutrophils % (auto) 80.6 %
[2018-12-28] MEDS: INSULIN ASPART 100 UNITS/ML 3 ML PEN SC SCH ×4 (08:06→20:43)
[2018-12-28] MEDS: DOCUSATE SODIUM 100 MG CAP PO SCH (08:08)
[2018-12-28] MEDS: DULOXETINE HCL 60 MG CAP PO SCH (08:08)
[2018-12-28] MEDS: GABAPENTIN 300 MG CAP PO SCH ×3 (08:09→20:35)
[2018-12-28] MEDS: METOPROLOL SUCC 25MG EXT REL TAB PO SCH ×2 (08:10→20:36)
[2018-12-28] MEDS: MAGNESIUM OXIDE 400 MG TAB PO SCH (08:10)
[2018-12-28] MEDS: SPIRONOLACTONE 25 MG TAB PO SCH ×2 (08:10→20:33)
[2018-12-28] MEDS: POTASSIUM CHLORIDE 10 MEQ TABCR PO SCH (08:11)
[2018-12-28] MEDS: TAMSULOSIN HCL 0.4 MG CAP PO SCH (08:11)
[2018-12-28] MEDS: ASPIRIN 81 MG ECTAB PO SCH (08:11)
[2018-12-28] MEDS: TIOTROPIUM BROMIDE 5 PUFF/90 MCG INH INH SCH (08:12)
[2018-12-28] MEDS: NYSTATIN POWDER 15GM BTL EXT SCH ×2 (08:13→20:35)
[2018-12-28] MEDS: PANTOprazole 40 MG in SYRINGE 0 ML IV SCH ×2 (08:13→20:33)
[2018-12-28] MEDS: NICOTINE 7 MG/24 HR TDSY TD SCH (08:16)
[2018-12-28] MEDS: LIDOCAINE 5% 1 PATCH TD SCH (08:17)
[2018-12-28] MEDS ORDERED: TAP WATER ENEMA PR SCH (09:00)
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
[2018-12-28 12:05] LABS: Appearance Urine Clear (Clear); Bilirubin Urine Negative (Negative); Blood Urine Negative (Negative); Color Urine Yellow; Glucose Urine UA Negative (Negative); Ketones Urine Negative (Negative); Leukocyte Esterase Urine Negative (Negative); Nitrite Urine Negative (Negative); Protein Urine Negative (Negative); Specific Gravity Urine 1.016 (1.000-1.030); Urobilinogen Urine Negative (Negative)
[2018-12-28] MEDS: SUCRALFATE 1 GM/10 ML UDC PO SCH ×3 (12:41→20:34)
[2018-12-28] MEDS: POLYETHYLENE (MIRALAX) 17 GM PACK PO SCH (12:48)
[2018-12-28] MEDS: TRAMADOL HCL 50 MG TABLET PO PRN ×2 (12:54→20:42)
[2018-12-28] MEDS: OXYCODONE HCL IR 5 MG TAB (IMMEDIATE RELEASE) PO PRN (15:31)
[2018-12-28] MEDS ORDERED: TAP WATER ENEMA PR PRN (16:25)
--- NOTE | 2018-12-28 16:33 | Hospitalist Progress Note ---
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 Due to diuretics Lisinopril held Monitor renal function (2) Hypotension: Hypotension resolved BP stable continue metoprolol Monitor (3) Pulmonary embolism: H/O PE On chronic anticoagulation--on coumadin Coumadin currently held in setting of possible GI bleed Monitor INR Leukocytosis: No obvious source of infection Check Procalcitonin/Lactate in AM Monitor Consider Blood Cx if develops fever (4) Supratherapeutic INR: INR > 10.4 on admission Received Vit K 2.5 mg while in ED Resolved Monitor INR Possible Hematemesis: IV Heparin discontinued Coumadin held Continue PPI BID, Carafate Hb Stable No acute bleeding today Appreciate GI Input Possible EGD as able Monitor CBC Constipation: Continue bowel regimen minimize pain Narcotic meds as able (5) Anemia: monitor CBC (6) COPD (chronic obstructive pulmonary disease): CXR showed no acute process Influenza screen: negative Ongoing Tobacco use Continue Nebs Supplemental Oxygen as needed 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 (8) BPH (benign prostatic hyperplasia): Continue tamsulosin DM II: Last A1C:7.2 Continue ISS (9) Chronic pain disorder: On Chronic pain meds (10) Depression with anxiety: Continue duloxetine (11) DVT prophylaxis: SCDs for now Plan to resume coumadin as able Code Status Full Code Subjective Patient is seen and examined at bedside Complains of generalized pain Had BM today Denies chest pain, SOB Cr levels improving No vomiting or bleeding problems today Leukocytosis but no obvious source of infection Physical Exam Vital Signs (Past 24 Hours): Last Vital Signs Temp 36.4 C L 12/28/18 15:56 Pulse 112 H 12/28/18 16:00 Resp 22 12/28/18 15:56 BP 129/78 12/28/18 15:56 Pulse Ox 91 12/28/18 15:56 Physical Exam: Physical Exam: Vitals signs as noted above General Appearance:Morbid Obese, no apparent distress Head: normocephalic, Atraumatic Eyes: normal inspection, EOMI Neck: supple, Trachea midline Respiratory/Chest: Normal breath sounds, CTA Cardiovascular: S1, S2, No murmur Abdomen/GI:Soft, Non tender, Bowel sounds present Extremities/Musculoskelatal:normal inspection, B/L LE edema Neurologic/Psych:AAOX3, grossly no focal neurological deficits Skin: normal color, warm Results & Data Laboratory Results Short CBC 12/27/18 12/28/18 Range/Units 20:57 05:47 WBC 20.79 H 18.02 H (4.8-10.8) K/uL Hgb 11.7 L 11.4 L (14.0-18.0) g/dL Hct 35.5 L 35.0 L (42-52) % Plt Count 274 255 (130-400) K/uL BMP 12/28/18 05:47 Sodium 131 L Potassium 3.5 Chloride 90 L Carbon Dioxide 34 H BUN 42 H Creatinine 1.68 H D Glucose 158 H Calcium 9.7 Liver Function 12/28/18 Range/Units 05:47 Total Bilirubin 0.9 (0.2-1) mg/dl AST 16 (15-37) U/L ALT 20 (12-78) U/L Alkaline Phosphatase 108 (45-117) U/L Albumin 2.9 L (3.4-5.0) gm/dl Urine 12/28/18 Range/Units 11:04 Urine Color Yellow Urine Appearance Clear (Clear) Urine pH 7.0 (4.5-7.5) Ur Specific Powers 1.016 (1.000-1.030) Urine Protein Negative (Negative) Urine Glucose (UA) Negative (Negative)
[2018-12-28] MEDS: DOCUSATE SODIUM/SENNA 50/8.6MG TAB PO SCH (20:34)
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
[2018-12-29] MEDS: OXYCODONE HCL IR 5 MG TAB (IMMEDIATE RELEASE) PO PRN ×3 (00:58→21:44)
[2018-12-29] MEDS: ALBUT/IPRATROP 3MG/0.5MG NEB 3 ML VIAL NEB SCH ×2 (07:13→07:22)
[2018-12-29 07:42] LABS: Basophils # (auto) 0.05 K/uL (0-0.2); Basophils % (auto) 0.4 %; Eosinophils # (auto) 0.21 K/uL (0-0.5); Eosinophils % (auto) 1.6 %; Hematocrit (blood only) 33.8 % (42-52); Hemoglobin 10.9 g/dL (14.0-18.0); Immature Granulocytes # (auto) 0.14 K/uL (0.00-0.02); Lymphocytes # (auto) 1.89 K/uL (1.2-3.4); Mean Corpuscular Hgb Conc 32.2 g/dL (32-36); Mean Corpuscular Volume 84.5 fL (80-100); Mean Platelet Volume 9.7 fL (7.4-10.4); Monocytes # (auto) 1.18 K/uL (0.11-0.59); Monocytes % (auto) 8.7 %; Neutrophils # (auto) 10.03 K/uL (1.4-6.5); Neutrophils % (auto) 74.3 %; Nucleated RBC # (auto) 0.02 K/uL (0-0); Nucleated RBC % (auto) 0.1 %; Platelet Count 238 K/uL (130-400); RDW Coefficient of Variation 17.6 % (11.5-14.5); RDW Standard Deviation 54.3 fL (36.4-46.3)
[2018-12-29 07:50] LABS: INR 1.1 (0.9-1.1); Prothrombin Time 11.2 Seconds (9.0-12.0)
[2018-12-29 08:15] LABS: BUN Creatinine Ratio 21.1 (10-20); Creatinine Clr Calc Pharmacy 130.5 ml/min; Est GFR (African American) 77.7; Magnesium 2.1 mg/dl (1.8-2.4); Potassium 3.7 mmol/L (3.5-5.1)
[2018-12-29] MEDS: TRAMADOL HCL 50 MG TABLET PO PRN ×2 (08:15→20:09)
[2018-12-29] MEDS: FUROSEMIDE 40 MG in SYRINGE 0 ML IV SCH ×2 (08:16→20:09)
[2018-12-29] MEDS: PANTOprazole 40 MG in SYRINGE 0 ML IV SCH ×2 (08:16→21:43)
[2018-12-29] MEDS: SUCRALFATE 1 GM/10 ML UDC PO SCH ×4 (08:16→20:11)
[2018-12-29] MEDS: METOPROLOL SUCC 25MG EXT REL TAB PO SCH ×2 (08:16→20:11)
[2018-12-29] MEDS: NICOTINE 7 MG/24 HR TDSY TD SCH (08:17)
[2018-12-29] MEDS: LIDOCAINE 5% 1 PATCH TD SCH (08:17)
[2018-12-29] MEDS: GABAPENTIN 300 MG CAP PO SCH ×3 (08:17→20:10)
[2018-12-29] MEDS: MAGNESIUM OXIDE 400 MG TAB PO SCH (08:17)
[2018-12-29] MEDS: TAMSULOSIN HCL 0.4 MG CAP PO SCH (08:17)
[2018-12-29] MEDS: DULOXETINE HCL 60 MG CAP PO SCH (08:17)
[2018-12-29] MEDS: ASPIRIN 81 MG ECTAB PO SCH (08:17)
[2018-12-29] MEDS: DOCUSATE SODIUM/SENNA 50/8.6MG TAB PO SCH ×2 (08:18→20:11)
[2018-12-29] MEDS: NYSTATIN POWDER 15GM BTL EXT SCH ×2 (08:19→21:43)
[2018-12-29] MEDS: INSULIN ASPART 100 UNITS/ML 3 ML PEN SC SCH ×4 (08:20→21:42)
[2018-12-29] MEDS: POTASSIUM CHLORIDE 10 MEQ TABCR PO SCH (08:43)
--- NOTE | 2018-12-29 09:05 | History & Physical Bridge Note ---
Date of Service December 29, 2018 History & Physical Bridge Note I have examined the patient, reviewed the History & Physical and in the interval since the performance of the History & Physical I have noted the following changes of clinical significance: no changes noted. Patient had meds this AM, but has not eaten. He will remain NPO now for an EGD this afternoon. Supervising Physician Co-Signing Physician Notes Agree with ALBERT Barrientos Abd: Soft, NT, ND, +BS Proceed with EGD today Continue current therapy
[2018-12-29] MEDS ORDERED: ALBUTEROL HFA 8 GM INHALER INH PRN (09:13)
[2018-12-29] MEDS ORDERED: ALBUT/IPRATROP 3MG/0.5MG NEB 3 ML VIAL NEB PRN ×2 (09:15→09:16)
[2018-12-29] MEDS: POLYETHYLENE (MIRALAX) 17 GM PACK PO SCH (11:00)
[2018-12-29] MEDS: ONDANSETRON INJ 2 MG/ML 2 ML VIAL IV PRN (11:16)
[2018-12-29] MEDS: TIOTROPIUM BROMIDE 5 PUFF/90 MCG INH INH SCH (11:16)
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
[2018-12-29] MEDS ORDERED: ePHEDrine sulfate 50 MG/ML AMP IV PRN (15:26)
[2018-12-29] MEDS ORDERED: ATROPINE SULFATE 0.1 MG/ML 10ML SYR IV PRN (15:26)
[2018-12-29] MEDS ORDERED: LIDOCAINE HCL 2% 2 ML VIAL/AMP(20MG/ML) INFIL ONE (16:04)
[2018-12-29] MEDS ORDERED: KETAMINE HCL INJ 50 MG/ML 10 ML VIAL ONE (16:04)
[2018-12-29] MEDS ORDERED: PROPOFOL IV EMULSION 10 MG/ML 20 ML VIAL IV ONE (16:04)
[2018-12-29] MEDS ORDERED: BENZOCAIN/TETRACA/BUTAM SPRAY 200 APPLN/20 GM SPRY EXT ONE (16:05)
--- NOTE | 2018-12-29 16:29 | Anesthesiology Progress Note ---
Date of Service December 29, 2018 Anesthesia Post Procedure Vital Signs Vital Signs: Temp Pulse Pulse Resp BP BP Pulse Ox 12/29/18 15:08 36.7 C 96 H 22 108/59 L 94 12/29/18 15:00 36.7 C 95 H 96 H 18 118/73 94 12/29/18 13:43 36.8 C 97 H 18 114/71 93 12/29/18 08:13 86 123/71 12/29/18 08:00 95 H 12/29/18 07:09 37.2 C 86 18 117/65 90 12/29/18 04:23 36.6 C 89 20 140/74 94 12/28/18 23:59 95 H 12/28/18 23:41 37 C 95 H 20 117/75 93 12/28/18 19:41 36.5 C 105 H 21 115/78 94 Pain Intensity Back: Pain Intensity: 8 Left Knee: Pain Intensity: 8 Right Foot: Pain Intensity: 8 Bilateral Neck: Pain Intensity: 8 Generalized: Pain Intensity: 10 Left Ankle: Pain Intensity: 8 Abdomen: Pain Intensity: 4 Notes Mental Status: alert / awake / arousable Patient Amnestic to Procedure: Yes Nausea / Vomiting: adequately controlled Pain: adequately controlled Airway Patency, RR, SpO2: stable & adequate BP & HR: stable & adequate Hydration State: stable & adequate Anesthetic Complications: no major complications apparent
--- NOTE | 2018-12-29 16:50 | GI REPORT ---
Patient Name: Stanton Milner Procedure Date: 12/29/2018 3:56 PM Date of : 1970 Admit Type: Inpatient Age: 48 Gender: Male Attending MD: Eduardo Chapman DO Procedure: Upper GI endoscopy Providers: Eduardo Chapman DO Referring MD: Owen Hogan Indications: Hematemesis Medicines: Monitored Anesthesia Care Complications: No immediate complications. Estimated Blood Loss: Estimated blood loss: none. Procedure: Pre-Anesthesia Assessment: - Prior to the procedure, a History and Physical was performed, and patient medications and allergies were reviewed. The patient's tolerance of previous anesthesia was also reviewed. The risks and benefits of the procedure and the sedation options and risks were discussed with the patient. All questions were answered, and informed consent was obtained. Prior Anticoagulants: The patient last took aspirin 10 days, Coumadin (warfarin) 3 days and heparin 2 days prior to the procedure. ASA Grade Assessment: IV - A patient with severe systemic disease that is a constant threat to life. After reviewing the risks and benefits, the patient was deemed in satisfactory condition to undergo the procedure. After obtaining informed consent, the endoscope was passed under direct vision. Throughout the procedure, the patient's blood pressure, pulse, and oxygen saturations were monitored continuously. The Endoscope was introduced through the mouth, and advanced to the second part of duodenum. The upper GI endoscopy was accomplished without difficulty. The patient tolerated the procedure well. Findings: The esophagus was normal. A small hiatal hernia was present. Diffuse severe inflammation characterized by congestion (edema), erosions, erythema and shallow ulcerations was found in the gastric fundus, on the greater curvature of the stomach and in the gastric antrum. Biopsies were taken with a cold forceps for histology. The examined duodenum was normal. Impression: - Normal esophagus. - Small hiatal hernia. - Gastritis. Biopsied. - Normal examined duodenum. Recommendation: - [facility]. - Advance diet as tolerated. - Continue present medications. - Await pathology results. Eduardo Chapman DO 12/29/2018 4:50:37 PM This report has been signed electronically. Note Initiated On: 12/29/2018 3:56 PM Number of Addenda: 0 I attest to the content of the Intraoperative Record and orders documented therein, exceptions below {[id number]}
--- NOTE | 2018-12-29 17:42 | Nephrology Progress Note ---
Date of Service December 29, 2018 Assessment & Plan (1) MAHAMED (acute kidney injury): Patient with MAHAMED likely hemodynamically mediated in setting of diuresis and hypotension. He also had some urinary retention. Cr peaked at 2.8 from a baseline of 1.2. He is morbidly obese and volume status is difficult to assess. UA was bland Continue lasix iv 40mg bid. Place fontaine catheter monitor BMP daily. If renal function worsens, will obtain renal ultrasound. (2) Acute on chronic diastolic CHF (congestive heart failure): Improving with diuresis. Continue IV lasix 40mg iv bid and fluid restriction of 1200ml Daily weight if possible. (3) BPH (benign prostatic hyperplasia): Place fontaine today as patient was found to be retaining. Start flomax 0.4mg daily Subjective Morbidly obese man admitted with SOB. He developed MAHAMED in setting of aggressive diuresis. Patient seen in f/u. He feels about the same. Mild SOB. No vomiting or diarrhoea. He had urinary retention last night and needed straight cath. cr is down trending. Legs are swollen. Review of Systems All systems reviewed & are unremarkable except as noted in HPI & below Physical Exam Vital Signs (Past 24 Hours): Last Vital Signs Temp 36.5 C 12/29/18 17:23 Pulse 92 H 12/29/18 17:23 Resp 20 12/29/18 17:23 BP 125/78 12/29/18 17:23 Pulse Ox 95 12/29/18 17:23 Physical Exam: General exam: Obese, Appears comfortable on oxygen, no acute distress HEENT: Pupils are equal and reactive to light Neck: No JVD, neck is supple trachea is midline Respiratory system: Clear breath sounds bilaterally. Gastrointestinal: Abdomen is soft, non distended, non tender, bowel sounds are present CVS: Regular rate and rhythm. No murmurs, rubs or gallops Musculoskeletal: No joint or muscle tenderness Extremities: Non tender, 1+ edema, peripheral pulses are present Neuro: Oriented, no tremors, no focal neurological deficits Skin: No rashes Results & Data Laboratory Results k 3.7, cr 1.26
[2018-12-29] MEDS: LORazepam 1 MG TAB PO PRN (20:09)
--- NOTE | 2018-12-29 21:00 | Hospitalist Progress Note ---
Date of Service December 29, 2018 Assessment & Plan (1) Acute on chronic diastolic CHF (congestive heart failure): Acute on Chronic Diastolic CHF IV/PO Diuretics currently held due to MAHAMED Continue Fluid restriction Continue Metoprolol Monitor daily weight Appreciate Nephrology Input Continue IV lasix Lloyd catheter for close monitoring and urinary retention Urinary Retention Continue flomax Voiding trial prior to discharge MAHAMED on CKD II-III Due to diuretics Cr levels improved Lisinopril held Monitor renal function Appreciate Nephrology input (2) Hypotension: Hypotension resolved BP stable continue metoprolol Monitor (3) Pulmonary embolism: H/O PE On chronic anticoagulation--on coumadin Coumadin currently held for now Monitor INR Leukocytosis: No obvious source of infection Normal Procalcitonin/Lactate Consider Blood Cx if develops fever WBC count improving (4) Supratherapeutic INR: INR > 10.4 on admission Received Vit K 2.5 mg while in ED Resolved Monitor INR Possible Hematemesis: IV Heparin discontinued Coumadin held Continue PPI BID, Carafate Hb Stable S/P EGD: Normal esophagus, small hiatal hernia, gastritis, normal duodenum Wait for pathology report Appreciate GI Input Monitor CBC Constipation: Resolved Continue bowel regimen minimize pain Narcotic meds as able (5) Anemia: monitor CBC (6) COPD (chronic obstructive pulmonary disease): CXR showed no acute process Influenza screen: negative Ongoing Tobacco use Continue Nebs Supplemental Oxygen as needed Tobacco use disorder 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 to quit Hypoventilation associated with obesity On supplemental oxygen at bedtime at baseline Oxygen PRN Morbid obesity BMI:61 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 lifestyle changes (7) Erythema: Erythema of lower extremities is generally chronic left ankle X ray:Soft tissue swelling with no radiographic evidence of acute fracture. (8) BPH (benign prostatic hyperplasia): Continue tamsulosin DM II: Last A1C:7.2 Continue ISS (9) Chronic pain disorder: On Chronic pain meds (10) Depression with anxiety: Continue duloxetine (11) DVT prophylaxis: SCDs for now Plan to resume coumadin as able Code Status Full Code Subjective Patient is seen and examined at bedside Had EGD today Complains of generalized pain and nausea Had BM Denies chest pain, SOB Leukocytosis trending down Physical Exam 2 Vital Signs (Past 24 Hours): Last Vital Signs Temp 36.5 C 12/29/18 17:55 Pulse 93 H 12/29/18 17:55 Resp 21 12/29/18 17:55 BP 126/77 12/29/18 17:55 Pulse Ox 94 12/29/18 17:55 Physical Exam: Physical Exam: Vitals signs as noted above General Appearance:Morbid Obese, no apparent distress Head: normocephalic, Atraumatic Eyes: normal inspection, EOMI Neck: supple, Trachea midline Respiratory/Chest: Normal breath sounds, CTA Cardiovascular: S1, S2, No murmur Abdomen/GI:Soft, Non tender, Bowel sounds present Extremities/Musculoskelatal:normal inspection, B/L LE edema Neurologic/Psych:AAOX3, grossly no focal neurological deficits Skin: normal color, warm Results & Data Laboratory Results Short CBC 12/29/18 Range/Units 07:32 WBC 13.50 H (4.8-10.8) K/uL Hgb 10.9 L (14.0-18.0) g/dL Hct 33.8 L (42-52) % Plt Count 238 (130-400) K/uL BMP 12/29/18 07:32 Sodium 136 Potassium 3.7 Chloride 95 L Carbon Dioxide 35 H BUN 27 H Creatinine 1.26 D Glucose 131 H Calcium 10.0
[2018-12-30] MEDS: OXYCODONE HCL IR 5 MG TAB (IMMEDIATE RELEASE) PO PRN ×5 (04:45→22:29)
[2018-12-30 07:58] LABS: Basophils # (auto) 0.06 K/uL (0-0.2); Basophils % (auto) 0.5 %; Eosinophils # (auto) 0.24 K/uL (0-0.5); Eosinophils % (auto) 1.9 %; Hemoglobin 10.8 g/dL (14.0-18.0); Immature Granulocytes # (auto) 0.13 K/uL (0.00-0.02); Lymphocytes # (auto) 2.07 K/uL (1.2-3.4); Lymphocytes % (auto) 16.6 %; Mean Corpuscular Hgb Conc 31.8 g/dL (32-36); Mean Corpuscular Volume 84.8 fL (80-100); Mean Platelet Volume 10.1 fL (7.4-10.4); Monocytes # (auto) 1.04 K/uL (0.11-0.59); Monocytes % (auto) 8.3 %; Neutrophils # (auto) 8.92 K/uL (1.4-6.5); Neutrophils % (auto) 71.7 %; Nucleated RBC # (auto) 0.04 K/uL (0-0); Nucleated RBC % (auto) 0.3 %; Platelet Count 255 K/uL (130-400); RDW Coefficient of Variation 17.5 % (11.5-14.5); RDW Standard Deviation 53.4 fL (36.4-46.3); Red Blood Count 4.01 M/uL (4.7-6.1); White Blood Count 12.46 K/uL (4.8-10.8)
[2018-12-30] MEDS: SUCRALFATE 1 GM/10 ML UDC PO SCH ×2 (08:00→12:56)
[2018-12-30 08:09] LABS: Prothrombin Time 10.7 Seconds (9.0-12.0)
[2018-12-30 08:28] LABS: BUN Creatinine Ratio 18.7 (10-20); Calcium 9.7 mg/dl (8.5-10.1); Creatinine Clr Calc Pharmacy 113.5 ml/min; Est GFR (African American) 66.6; Est GFR (Non-African American) 57.5; Potassium 3.6 mmol/L (3.5-5.1)
[2018-12-30] MEDS: MAGNESIUM OXIDE 400 MG TAB PO SCH (09:29)
[2018-12-30] MEDS: NICOTINE 7 MG/24 HR TDSY TD SCH (09:29)
[2018-12-30] MEDS: TAMSULOSIN HCL 0.4 MG CAP PO SCH (09:29)
[2018-12-30] MEDS: ASPIRIN 81 MG ECTAB PO SCH (09:29)
[2018-12-30] MEDS: TIOTROPIUM BROMIDE 5 PUFF/90 MCG INH INH SCH (09:30)
[2018-12-30] MEDS: GABAPENTIN 300 MG CAP PO SCH ×3 (09:30→20:19)
[2018-12-30] MEDS: METOPROLOL SUCC 25MG EXT REL TAB PO SCH ×2 (09:30→20:19)
[2018-12-30] MEDS: DULOXETINE HCL 60 MG CAP PO SCH (09:30)
[2018-12-30] MEDS: PANTOprazole 40 MG in SYRINGE 0 ML IV SCH ×2 (09:31→20:22)
[2018-12-30] MEDS: DOCUSATE SODIUM/SENNA 50/8.6MG TAB PO SCH ×2 (09:31→20:19)
[2018-12-30] MEDS: LIDOCAINE 5% 1 PATCH TD SCH (09:31)
[2018-12-30] MEDS: NYSTATIN POWDER 15GM BTL EXT SCH ×2 (09:31→20:20)
[2018-12-30] MEDS: POTASSIUM CHLORIDE 10 MEQ TABCR PO SCH (09:32)
[2018-12-30] MEDS: INSULIN ASPART 100 UNITS/ML 3 ML PEN SC SCH ×4 (09:33→20:32)
[2018-12-30] MEDS: FUROSEMIDE 40 MG in SYRINGE 0 ML IV SCH (09:33)
[2018-12-30] MEDS: LORazepam 1 MG TAB PO PRN ×2 (09:36→17:17)
--- NOTE | 2018-12-30 09:58 | Gastroenterology Progress Note ---
Date of Service December 30, 2018 Assessment & Plan (1) Hematemesis: Patient is a 48 yo male with dark emesis on a single occasion while on a heparin gtt. He underwent an EGD on 12/29/2018 that indicated significant gastritis. 1) Protonix IV 40 mg BID 2) Carafate 1 gm four times daily before meals and at bedtime x 10 days. 3) Continue to monitor H/H and would avoid resuming anticoagulants for 7 days as patient is at high risk to re-bleed. 4) Supportive care per primary team. Thank you for allowing us to participate in the care of this patient. If you should have any further questions or concerns, do not hesitate to contact us at extension [phone] or [phone]. Supervising Physician Co-Signing Physician Notes Agree with ALBERT Barrientos as above Abd: Soft, NT, ND, +BS Continue current therapy with twice daily PPI and Carafate PO QID for 10 days Anticoagulation should be held for 1 week Continue supportive care Subjective Patient is a 48 yo male with hematemesis. He underwent an EGD that indicated significant gastritis. The patient is on Protonix 40 mg IV BID and Carafate 1 gm four times daily before meals and at bedtime. The patient denies further hematemesis. He denies epigastric pain or heartburn. He offers no further complaints today. Constitutional: no fever and no chills Respiratory: no cough Cardiovascular: no chest pain Gastrointestinal: no abdominal pain, no heartburn, no nausea, no coffee ground emesis and no hematemesis Physical Exam Vital Signs (Past 24 Hours): Last Vital Signs Temp 37.0 C 12/30/18 07:49 Pulse 83 12/30/18 07:49 Resp 20 12/30/18 07:49 BP 147/75 H 12/30/18 07:49 Pulse Ox 93 12/30/18 07:49 Constitutional: WD/WN, vitals as above Eyes: PERRL, conjunctivae normal, anicteric sclerae Cardiovascular: Rate/Rhythm: regular rate Gastrointestinal (Abdomen): normal bowel sounds, soft, nontender, no hepatosplenomegaly Skin: + rash Neurologic: Speech / Cognition: normal speech Psychiatric: Orientation: alert (1) Hematemesis Nausea presence: without nausea Qualified Code(s): K92.0 - Hematemesis
[2018-12-30] MEDS: TRAMADOL HCL 50 MG TABLET PO PRN ×3 (12:31→21:50)
[2018-12-30] MEDS: POLYETHYLENE (MIRALAX) 17 GM PACK PO SCH (12:56)
[2018-12-30] MEDS: SUCRALFATE 1 GM TAB PO SCH ×3 (13:36→20:19)
[2018-12-30] MEDS: ONDANSETRON INJ 2 MG/ML 2 ML VIAL IV PRN (14:34)
--- NOTE | 2018-12-30 17:32 | Nephrology Progress Note ---
Date of Service December 30, 2018 Assessment & Plan (1) MAHAMED (acute kidney injury): Patient with MAHAMED likely hemodynamically mediated in setting of diuresis and hypotension. He also had some urinary retention. Cr peaked at 2.8 from a baseline of 1.2. Creatinine is slightly up trending to 1.4 today. He is diuresing well with neck -2.4 L yesterday. We will reduce Lasix to 40 mg IV daily. monitor BMP daily. If renal function worsens, will obtain renal ultrasound. (2) Acute on chronic diastolic CHF (congestive heart failure): Improving with diuresis. Reduce IV lasix 40mg iv daily and continue fluid restriction of 1200ml Daily weight if possible. (3) BPH (benign prostatic hyperplasia): Place fontaine today as patient was found to be retaining. Start flomax 0.4mg daily Subjective Morbidly obese man admitted with SOB. He developed MAHAMED in setting of aggressive diuresis. Patient seen in f/u. His breathing is slightly better. He is diuresing well with Lasix. Still has leg swelling. Review of Systems All systems reviewed & are unremarkable except as noted in HPI & below Physical Exam Vital Signs (Past 24 Hours): Last Vital Signs Temp 36.9 C 12/30/18 15:47 Pulse 87 12/30/18 15:47 Resp 18 12/30/18 15:47 BP 105/63 12/30/18 15:47 Pulse Ox 93 12/30/18 15:47 Physical Exam: General exam: Obese male, appears comfortable, no acute distress HEENT: Pupils are equal and reactive to light Neck: No JVD, neck is supple trachea is midline Respiratory system: Clear breath sounds bilaterally. Gastrointestinal: Abdomen is soft, non distended, non tender, bowel sounds are present CVS: Regular rate and rhythm. No murmurs, rubs or gallops Musculoskeletal: No joint or muscle tenderness Extremities: Non tender, 1+ edema, peripheral pulses are present Neuro: Oriented, no tremors, no focal neurological deficits Skin: Open areas on the legs. Results & Data Laboratory Results Creatinine 1.4 from 1.2 yesterday
--- NOTE | 2018-12-30 19:15 | Hospitalist Progress Note ---
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 Due to diuretics/Urinary retention Cr: 1.43 today Lisinopril held Monitor renal function Appreciate Nephrology input (2) Hypotension: Hypotension resolved BP stable continue metoprolol Monitor (3) Pulmonary embolism: H/O PE On chronic anticoagulation--coumadin Coumadin currently held for 1 week Monitor INR Leukocytosis: No obvious source of infection Normal Procalcitonin/Lactate Consider Blood Cx if develops fever WBC count improving (4) Supratherapeutic INR: INR > 10.4 on admission Received Vit K 2.5 mg while in ED Resolved Monitor INR Possible Hematemesis: IV Heparin discontinued Coumadin/Aspirin held for 1 week Continue PPI BID Continue Carafate for 10 days Hb Stable S/P EGD: Normal esophagus, small hiatal hernia, Significant gastritis/Ulcerations, normal duodenum Wait for pathology report Appreciate GI Input Monitor CBC Constipation: Resolved Continue bowel regimen minimize pain Narcotic meds as able (5) Anemia: monitor CBC (6) COPD (chronic obstructive pulmonary disease): CXR showed no acute process Influenza screen: negative Ongoing Tobacco use Continue Nebs Supplemental Oxygen as needed 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 (8) BPH (benign prostatic hyperplasia): Continue tamsulosin DM II: Last A1C:7.2 Continue ISS (9) Chronic pain disorder: On Chronic pain meds (10) Depression with anxiety: Continue duloxetine (11) DVT prophylaxis: SCDs for now Plan to resume coumadin as able Code Status Full Code Subjective Patient is seen and examined at bedside Pain is controlled No new comaplaints Discussed with GI today Denies chest pain, SOB Leukocytosis trending down Physical Exam Vital Signs (Past 24 Hours): Last Vital Signs Temp 36.9 C 12/30/18 15:47 Pulse 87 12/30/18 15:47 Resp 18 12/30/18 15:47 BP 105/63 12/30/18 15:47 Pulse Ox 93 12/30/18 15:47 Physical Exam: Physical Exam: Vitals signs as noted above General Appearance:Morbid Obese, no apparent distress Head: normocephalic, Atraumatic Eyes: normal inspection, EOMI Neck: supple, Trachea midline Respiratory/Chest: Normal breath sounds, CTA Cardiovascular: S1, S2, No murmur Abdomen/GI:Soft, Non tender, Bowel sounds present Extremities/Musculoskelatal:normal inspection, B/L LE edema Neurologic/Psych:AAOX3, grossly no focal neurological deficits Skin: normal color, warm Results & Data Laboratory Results Short CBC 12/30/18 Range/Units 07:38 WBC 12.46 H (4.8-10.8) K/uL Hgb 10.8 L (14.0-18.0) g/dL Hct 34.0 L (42-52) % Plt Count 255 (130-400) K/uL BMP 12/30/18 07:38 Sodium 137 Potassium 3.6 Chloride 95 L Carbon Dioxide 37 H BUN 27 H Creatinine 1.43 H Glucose 127 H Calcium 9.7
[2018-12-30] MEDS: CYCLOBENZAPRINE HCL 10 MG TAB PO PRN (20:14)
[2018-12-30] MEDS ORDERED: TAMSULOSIN HCL 0.4 MG CAP PO SCH (21:00)
[2018-12-31] MEDS: LORazepam 1 MG TAB PO PRN ×3 (01:20→21:32)
[2018-12-31] MEDS: TRAMADOL HCL 50 MG TABLET PO PRN ×4 (02:41→20:04)
[2018-12-31] MEDS: ONDANSETRON INJ 2 MG/ML 2 ML VIAL IV PRN ×3 (02:42→18:14)
[2018-12-31] MEDS: OXYCODONE HCL IR 5 MG TAB (IMMEDIATE RELEASE) PO PRN ×5 (02:53→22:25)
[2018-12-31 06:45] LABS: Hematocrit (blood only) 33.3 % (42-52); Hemoglobin 10.5 g/dL (14.0-18.0); Mean Corpuscular Hgb Conc 31.5 g/dL (32-36); Mean Corpuscular Volume 86.3 fL (80-100); Mean Platelet Volume 10.1 fL (7.4-10.4); Nucleated RBC # (auto) 0.04 K/uL (0-0); Nucleated RBC % (auto) 0.3 %; Platelet Count 291 K/uL (130-400); RDW Coefficient of Variation 17.2 % (11.5-14.5); Red Blood Count 3.86 M/uL (4.7-6.1); White Blood Count 12.24 K/uL (4.8-10.8)
[2018-12-31 06:54] LABS: Prothrombin Time 10.6 Seconds (9.0-12.0)
[2018-12-31 07:00] LABS: BUN Creatinine Ratio 16.3 (10-20); Calcium 9.3 mg/dl (8.5-10.1); Creatinine Clr Calc Pharmacy 108.4 ml/min; Est GFR (African American) 62.9; Est GFR (Non-African American) 54.3; Potassium 3.4 mmol/L (3.5-5.1)
[2018-12-31] MEDS: MAGNESIUM OXIDE 400 MG TAB PO SCH (09:09)
[2018-12-31] MEDS: NICOTINE 7 MG/24 HR TDSY TD SCH (09:09)
[2018-12-31] MEDS: POTASSIUM CHLORIDE 10 MEQ TABCR PO SCH (09:09)
[2018-12-31] MEDS: SUCRALFATE 1 GM TAB PO SCH ×4 (09:09→21:34)
[2018-12-31] MEDS: DULOXETINE HCL 60 MG CAP PO SCH (09:09)
[2018-12-31] MEDS: LIDOCAINE 5% 1 PATCH TD SCH (09:09)
[2018-12-31] MEDS: DOCUSATE SODIUM/SENNA 50/8.6MG TAB PO SCH ×2 (09:10→21:35)
[2018-12-31] MEDS: METOPROLOL SUCC 25MG EXT REL TAB PO SCH ×2 (09:10→21:35)
[2018-12-31] MEDS: FUROSEMIDE 40 MG in SYRINGE 0 ML IV SCH (09:10)
[2018-12-31] MEDS: GABAPENTIN 300 MG CAP PO SCH ×3 (09:10→21:32)
[2018-12-31] MEDS: PANTOprazole 40 MG in SYRINGE 0 ML IV SCH ×2 (09:10→21:35)
[2018-12-31] MEDS: NYSTATIN POWDER 15GM BTL EXT SCH ×2 (09:11→21:38)
[2018-12-31] MEDS: TAMSULOSIN HCL 0.4 MG CAP PO SCH (09:11)
[2018-12-31] MEDS: TIOTROPIUM BROMIDE 5 PUFF/90 MCG INH INH SCH (09:11)
[2018-12-31] MEDS ORDERED: POTASSIUM CHLORIDE 10 MEQ TABCR PO STA (09:13)
[2018-12-31] MEDS: INSULIN ASPART 100 UNITS/ML 3 ML PEN SC SCH ×4 (09:13→21:36)
[2018-12-31] MEDS: MoRPHine SULFATE CR 15 MG TABCR PO SCH ×2 (12:53→21:32)
[2018-12-31] MEDS: POLYETHYLENE (MIRALAX) 17 GM PACK PO SCH (12:53)
--- NOTE | 2018-12-31 14:21 | Nephrology Progress Note ---
Date of Service December 31, 2018 Assessment & Plan (1) MAHAMED (acute kidney injury): Patient with MAHAMED likely hemodynamically mediated in setting of diuresis and hypotension. He also had some urinary retention. Cr peaked at 2.8 from a baseline of 1.2. Creatinine is slightly up trending to 1.5 today. He is diuresing well with 1.7 L off yesterday. -cont reduced Lasix to 40 mg IV daily. monitor BMP daily -may soon be ok to change to po diuretics 80 mg daily torsemide or 80 mg bid lasix; and aldactone 50 mg bid (2) Acute on chronic diastolic CHF (congestive heart failure): Improving with diuresis. cont lower IV lasix 40mg iv daily consider tighter FR at 1.5L for example Daily weight if possible. (3) BPH (benign prostatic hyperplasia): fontaine placed 12/30; cont flomax 0.4mg daily Subjective seen onrounds this am 0915> feels a bit better but still sob; still some musculoskeletal pain. 1.7 L negative on the day; wt trending down. on 1.8L FR pt states he has less nausea but still feels "sick," hard to pull out further details on that Physical Exam Vital Signs (Past 24 Hours): Last Vital Signs Temp 36.9 C 12/31/18 07:49 Pulse 83 12/31/18 07:49 Resp 18 12/31/18 07:49 BP 132/80 12/31/18 07:49 Pulse Ox 96 12/31/18 07:49 Constitutional: well developed, well nourished and + morbidly obese on 4L 02nc Eyes: EOM intact bilaterally ENMT: Ears: no external ear abnormality Nose: no external nose abnormality Mouth: + dry oral mucous membranes Neck: no nuchal rigidity Respiratory: normal respiratory effort Auscultation: + diminished lung sounds Cardiovascular: Rate/Rhythm: regular rate and regular rhythm Extremities: + edema (2+) Gastrointestinal (Abdomen): Inspection/Auscultation: normal bowel sounds Percussion/Palpation: abdomen soft; abdomen nontender Musculoskeletal: Extremities: strength 5/5 throughout Skin: no rashes, warm and dry Neurologic: bolivar, fluent speech, no tremor Results & Data Laboratory Results Abnormal lab results 12/30/18 12/30/18 12/31/18 Range/Units 16:42 19:59 05:54 WBC (4.8-10.8) K/uL RBC (4.7-6.1) M/uL Hgb (14.0-18.0) g/dL Hct (42-52) % MCHC (32-36) g/dL RDW Std Deviation (36.4-46.3) fL RDW Coeff of Megan (11.5-14.5) % Absolute Nucleated RBC (0-0) K/uL Sodium 135 L (136-145) mmol/L Potassium 3.4 L (3.5-5.1) mmol/L Chloride 93 L (98-107) mmol/L Carbon Dioxide 36 H (21-32) mmol/L BUN 24 H (7-18) mg/dl Creatinine 1.50 H (0.6-1.4) mg/dl Glucose 118 H (70-99) mg/dl POC Glucose 107 H 123 H (70-99) 12/31/18 12/31/18 12/31/18 Range/Units 05:54 07:50 12:18 WBC 12.24 H (4.8-10.8) K/uL RBC 3.86 L (4.7-6.1) M/uL Hgb 10.5 L (14.0-18.0) g/dL Hct 33.3 L (42-52) % MCHC 31.5 L (32-36) g/dL RDW Std Deviation 54.0 H (36.4-46.3) fL RDW Coeff of Megan 17.2 H (11.5-14.5) % Absolute Nucleated RBC 0.04 H (0-0) K/uL Sodium (136-145) mmol/L Potassium (3.5-5.1) mmol/L Chloride (98-107) mmol/L Carbon Dioxide (21-32) mmol/L BUN (7-18) mg/dl Creatinine (0.6-1.4) mg/dl Glucose (70-99) mg/dl POC Glucose 133 H 142 H (70-99)
[2018-12-31] MEDS: CYCLOBENZAPRINE HCL 10 MG TAB PO PRN (16:41)
--- NOTE | 2018-12-31 17:15 | Hospitalist Progress Note ---
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 Due to diuretics/Urinary retention Cr: 1.5 today Lisinopril held Monitor renal function Appreciate Nephrology input (2) Hypotension: Hypotension resolved BP stable continue metoprolol Monitor (3) Pulmonary embolism: H/O PE On chronic anticoagulation--coumadin Coumadin currently held for 1 week Monitor INR Leukocytosis: No obvious source of infection Normal Procalcitonin/Lactate Consider Blood Cx if develops fever WBC count stable (4) Supratherapeutic INR: INR > 10.4 on admission Received Vit K 2.5 mg while in ED Resolved Monitor INR Possible Hematemesis: IV Heparin discontinued Coumadin/Aspirin held for 1 week Continue PPI BID Continue Carafate for 10 days Hb Stable S/P EGD: Normal esophagus, small hiatal hernia, Significant gastritis/Ulcerations, normal duodenum Wait for pathology report Appreciate GI Input Monitor CBC Constipation: Resolved Continue bowel regimen minimize pain Narcotic meds use as able (5) Anemia: monitor CBC (6) COPD (chronic obstructive pulmonary disease): CXR showed no acute process Influenza screen: negative Ongoing Tobacco use Continue Nebs Supplemental Oxygen as needed Tobacco use disorder 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 (8) BPH (benign prostatic hyperplasia): Continue tamsulosin DM II: Last A1C:7.2 Continue ISS (9) Chronic pain disorder: On Chronic pain meds (10) Depression with anxiety: Continue duloxetine (11) DVT prophylaxis: SCDs for now Plan to resume coumadin as able Code Status Full Code Subjective Patient is seen and examined at bedside Feels better today Complains of generalized pain Requests to restart his home pain meds Cr slightly up Denies chest pain, SOB Leukocytosis stable Physical Exam Vital Signs (Past 24 Hours): Last Vital Signs Temp 37.1 C 12/31/18 15:15 Pulse 96 H 12/31/18 15:15 Resp 18 12/31/18 15:15 BP 111/72 12/31/18 15:15 Pulse Ox 91 12/31/18 15:15 Physical Exam: Physical Exam: Vitals signs as noted above General Appearance:Morbid Obese, no apparent distress Head: normocephalic, Atraumatic Eyes: normal inspection, EOMI Neck: supple, Trachea midline Respiratory/Chest: Normal breath sounds, CTA Cardiovascular: S1, S2, No murmur Abdomen/GI:Soft, Non tender, Bowel sounds present Extremities/Musculoskelatal:normal inspection, B/L LE edema Neurologic/Psych:AAOX3, grossly no focal neurological deficits Skin: normal color, warm Results & Data Laboratory Results Short CBC 12/31/18 Range/Units 05:54 WBC 12.24 H (4.8-10.8) K/uL Hgb 10.5 L (14.0-18.0) g/dL Hct 33.3 L (42-52) % Plt Count 291 (130-400) K/uL [facility] 12/31/18 05:54 Sodium 135 L Potassium 3.4 L Chloride 93 L Carbon Dioxide 36 H BUN 24 H Creatinine 1.50 H Glucose 118 H Calcium 9.3
--- NOTE | 2018-12-31 22:58 | CT Scan Report ---
CT SCAN OF THE ABDOMEN AND PELVIS WITHOUT IV CONTRAST CLINICAL HISTORY: Generalized abdominal pain. COMPARISON STUDY: Multiple prior abdominal CT scans, most recently dated 06/04/2018. TECHNIQUE: CT scan of the abdomen and pelvis is performed from the lung bases to the proximal femora. Images are reviewed in the axial, sagittal, and coronal planes. IV contrast was not administered for this examination as per the referring clinician. Note that the examination was performed in signific antly suboptimal fashion without oral and IV contrast. A dose lowering technique was utilized adherin g to the principles of ALARA. The examination is degraded by large body habitus, and by streak artifa ct from the body wall abutting the CT gantry. CT DOSE: 2272.25 mGy.cm FINDINGS: Lung bases: The heart is normal in size and without pericardial effusion. There is bibasilar atelecta sis, left greater than right. No airspace consolidation is seen typical for pneumonia and there is no pleural effusion. There is a small hiatal hernia. Liver: The unenhanced liver is normal in size, contour, and attenuation. There is no intrahepatic tomás iary ductal dilatation. Gallbladder: Contracted and grossly unremarkable. Spleen: Normal in size and attenuation. Pancreas: The unenhanced pancreas is atrophic and grossly unremarkable. Adrenal glands: Unremarkable. Kidneys: The unenhanced kidneys demonstrate cortical atrophy and are without hydronephrosis. There is a 5 mm nonobstructing right renal calculus. No left renal calculi are identified. There is no eviden ce of contour deforming renal mass lesion. Abdominal vasculature: The abdominal aorta is normal in course and caliber. Bowel: There is moderate constipation. No bowel obstruction is seen. The appendix is normal as image d. A metallic foreign body is present within the appendiceal lumen as seen on image #[id number]. This is new from previous. Peritoneum: There is no intraperitoneal free air or abdominal ascites. The appendix is otherwise norm al in appearance. 6. Additional findings as above. There is a fat-containing umbilical hernia. Foci of induration withi n the ventral abdominal wall are likely related subcutaneous injections. Lymphadenopathy: None. Pelvic viscera: The bladder is decompressed around a Lloyd catheter and not well evaluated. The prost ate gland is diminutive. The seminal vesicles are normal as imaged. Skeletal structures: The skeletal structures are osteopenic. There is a mild chronic superior endplat e compression deformity of L1. No lytic or blastic lesions are seen. IMPRESSION: 1. Significantly suboptimal examination without oral and IV contrast. 2. There are no acute infectious or inflammatory findings in the abdomen or pelvis 3. Right-sided nephrolithiasis. 4. Moderate constipation. No bowel obstruction is identified. 5. A metallic foreign body is present within the appendiceal lumen. This is new from previous. 6. Additional findings as above. Electronically signed by: Misael Lopez M.D. 12/31/2018 10:57 PM
[2018-12-31] MEDS ORDERED: MoRPHine SULFATE 2 MG/ML CARP IV STA (23:23)
--- NOTE | 2018-12-31 23:25 | Hospitalist Progress Note ---
Date of Service December 31, 2018 Subjective Patient complaining of worsening RLQ pain. (Patient has had intermittent RLQ pain for about 6 months.) No fever, no chills. BM yesterday CT abdomen pelvis showed metallic foreign body appendiceal lumen. AP RLQ pain, abn CT NPO for now Surgery consult Hold diuretics while patient n.p.o. Case discussed with Dr. Branch (surgeon operations assistant). Will evaluate patient in a.m. Will relay to AM provider. Physical Exam 2 Vital Signs (Past 24 Hours): Last Vital Signs Temp 36.9 C 12/31/18 19:51 Pulse 89 12/31/18 21:29 Resp 20 12/31/18 19:51 BP 124/72 12/31/18 21:29 Pulse Ox 90 12/31/18 19:51
[2019-01-01] MEDS: TRAMADOL HCL 50 MG TABLET PO PRN (00:52)
[2019-01-01] MEDS: OXYCODONE HCL IR 5 MG TAB (IMMEDIATE RELEASE) PO PRN ×3 (04:43→20:11)
[2019-01-01] MEDS ORDERED: MoRPHine SULFATE 2 MG/ML CARP IV STA ×2 (05:17→20:58)
[2019-01-01 06:30] LABS: Hematocrit (blood only) 33.5 % (42-52); Hemoglobin 10.5 g/dL (14.0-18.0); Mean Corpuscular Hgb Conc 31.3 g/dL (32-36); Mean Corpuscular Volume 85.9 fL (80-100); Mean Platelet Volume 10.1 fL (7.4-10.4); Platelet Count 273 K/uL (130-400); RDW Standard Deviation 53.5 fL (36.4-46.3); White Blood Count 11.08 K/uL (4.8-10.8)
[2019-01-01 06:37] LABS: Prothrombin Time 10.5 Seconds (9.0-12.0)
[2019-01-01 07:00] LABS: Albumin Level 2.9 gm/dl (3.4-5.0); BUN Creatinine Ratio 17.4 (10-20); Bilirubin Direct 0.2 mg/dl (0-0.2); Calcium 9.3 mg/dl (8.5-10.1); Creatinine Clr Calc Pharmacy 111.6 ml/min; Est GFR (Non-African American) 56.1; Potassium 3.3 mmol/L (3.5-5.1)
[2019-01-01 07:03] LABS: Bilirubin,Total 0.6 mg/dl (0.2-1); Total Protein 6.7 gm/dl (6.4-8.2)
[2019-01-01] MEDS: GABAPENTIN 300 MG CAP PO SCH ×3 (08:02→20:49)
[2019-01-01] MEDS: METOPROLOL SUCC 25MG EXT REL TAB PO SCH ×2 (08:02→20:53)
[2019-01-01] MEDS: MAGNESIUM OXIDE 400 MG TAB PO SCH (08:03)
[2019-01-01] MEDS: DOCUSATE SODIUM/SENNA 50/8.6MG TAB PO SCH ×2 (08:03→20:52)
[2019-01-01] MEDS: PANTOprazole 40 MG in SYRINGE 0 ML IV SCH (08:03)
[2019-01-01] MEDS: TAMSULOSIN HCL 0.4 MG CAP PO SCH (08:03)
[2019-01-01] MEDS: SUCRALFATE 1 GM TAB PO SCH ×4 (08:03→20:49)
[2019-01-01] MEDS: NICOTINE 7 MG/24 HR TDSY TD SCH (08:04)
[2019-01-01] MEDS: LIDOCAINE 5% 1 PATCH TD SCH (08:04)
[2019-01-01] MEDS: POTASSIUM CHLORIDE 10 MEQ TABCR PO SCH ×2 (08:04→12:35)
[2019-01-01] MEDS: NYSTATIN POWDER 15GM BTL EXT SCH ×2 (08:04→21:42)
[2019-01-01] MEDS: CYCLOBENZAPRINE HCL 10 MG TAB PO PRN (08:04)
[2019-01-01] MEDS: DULOXETINE HCL 60 MG CAP PO SCH (08:05)
[2019-01-01] MEDS: INSULIN ASPART 100 UNITS/ML 3 ML PEN SC SCH ×4 (08:06→22:02)
[2019-01-01] MEDS: TIOTROPIUM BROMIDE 5 PUFF/90 MCG INH INH SCH (08:07)
[2019-01-01] MEDS: MoRPHine SULFATE CR 15 MG TABCR PO SCH ×2 (08:10→20:50)
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
[2019-01-01] MEDS ORDERED: MoRPHine SULFATE 4 MG/ML 1 ML CARP\\VIAL IV STA (09:13)
[2019-01-01] MEDS: POTASSIUM CHLORIDE / WTR 10 MEQ/100 ML PLCT IV SCH ×2 (10:23→13:19)
[2019-01-01] MEDS: POLYETHYLENE (MIRALAX) 17 GM PACK PO SCH (12:36)
[2019-01-01] MEDS ORDERED: GLYCOPYRROLATE 0.2 MG/ML VIAL ONE (14:33)
[2019-01-01] MEDS ORDERED: LIDOCAINE HCL 2% 2 ML VIAL/AMP(20MG/ML) INFIL ONE (14:33)
[2019-01-01] MEDS ORDERED: ONDANSETRON INJ 2 MG/ML 2 ML VIAL ONE ×2 (14:33→16:17)
[2019-01-01] MEDS ORDERED: SUCCINYLCHOLINE CHLORIDE 20 MG/ML 10 ML VIAL ONE (14:33)
[2019-01-01] MEDS ORDERED: ePHEDrine sulfate 50 MG/ML AMP ONE (14:33)
[2019-01-01] MEDS ORDERED: MIDAZOLAM HCL 1 MG/ML 2ML VIAL ONE (14:33)
[2019-01-01] MEDS ORDERED: NEOSTIGMINE METHYLSULFATE 5 MG/5 ML SYR ONE (14:33)
[2019-01-01] MEDS ORDERED: PROPOFOL IV EMULSION 10 MG/ML 20 ML VIAL IV ONE (14:33)
[2019-01-01] MEDS ORDERED: PHENYLEPHRINE HCL 10 MG/ML VIAL ONE (14:33)
[2019-01-01] MEDS ORDERED: DEXAMETHASONE SOD INJ 4 MG/ML VIAL ONE (14:33)
[2019-01-01] MEDS ORDERED: HYDROmorphone INJ 2 MG/ML SYR/VIAL ONE (14:35)
[2019-01-01] MEDS ORDERED: ATROPINE SULFATE 0.1 MG/ML 10ML SYR IV PRN ×2 (14:36→17:18)
[2019-01-01] MEDS ORDERED: ePHEDrine sulfate 50 MG/ML AMP IV PRN ×2 (14:36→17:18)
[2019-01-01] MEDS ORDERED: BUPIVACAINE 0.5 % 5 MG/1 ML MPF 30ML VIAL ONE (15:29)
--- NOTE | 2019-01-01 15:58 | Hospitalist Progress Note ---
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 Right-sided nephrolithiasis. Moderate constipation. No bowel obstruction is identified. A metallic foreign body is present within the appendiceal lumen. NPO for now Plan for laparoscopic appendectomy Surgery on board (2) Hypotension: Hypotension resolved BP stable continue metoprolol Monitor (3) Pulmonary embolism: H/O PE On chronic anticoagulation--coumadin Coumadin currently held for 1 week Monitor INR Leukocytosis: Normal Procalcitonin/Lactate Consider Blood Cx if develops fever WBC count stable (4) Supratherapeutic INR: INR > 10.4 on admission Received Vit K 2.5 mg while in ED Resolved Monitor INR Gastritis Hematemesis IV Heparin discontinued Coumadin/Aspirin held for 1 week Continue PPI BID Continue Carafate for 10 days Hb Stable S/P EGD: Normal esophagus, small hiatal hernia, Significant gastritis/Ulcerations, normal duodenum Wait for pathology report Appreciate GI Input Monitor CBC Constipation: Resolved Continue bowel regimen minimize pain Narcotic meds use as able (5) Anemia: monitor CBC (6) COPD (chronic obstructive pulmonary disease): CXR showed no acute process Influenza screen: negative Ongoing Tobacco use Continue Nebs Supplemental Oxygen as needed 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 (8) BPH (benign prostatic hyperplasia): Continue tamsulosin DM II: Last A1C:7.2 Continue ISS (9) Chronic pain disorder: On Chronic pain meds (10) Depression with anxiety: Continue duloxetine (11) DVT prophylaxis: SCDs for now Plan to resume coumadin as able Code Status Full Code Subjective Patient is seen and examined at bedside Complains of RLQ abd pain Planned for laparoscopic appendectomy today Hold diuretics today Denies chest pain, SOB Physical Exam Vital Signs (Past 24 Hours): Last Vital Signs Temp 36.6 C 01/01/19 13:56 Pulse 75 01/01/19 13:56 Resp 20 01/01/19 13:56 BP 125/79 01/01/19 13:56 Pulse Ox 92 01/01/19 13:56 Physical Exam: Physical Exam: Vitals signs as noted above General Appearance:Morbid Obese, no apparent distress Head: normocephalic, Atraumatic Eyes: normal inspection, EOMI Neck: supple, Trachea midline Respiratory/Chest: Normal breath sounds, CTA Cardiovascular: S1, S2, No murmur Abdomen/GI:Soft, RLQ tender, Bowel sounds present Extremities/Musculoskelatal:normal inspection, B/L LE edema Neurologic/Psych:AAOX3, grossly no focal neurological deficits Skin: normal color, warm Results & Data Laboratory Results Short CBC 01/01/19 Range/Units 06:12 WBC 11.08 H (4.8-10.8) K/uL Hgb 10.5 L (14.0-18.0) g/dL Hct 33.5 L (42-52) % Plt Count 273 (130-400) K/uL BMP 01/01/19 06:12 Sodium 135 L Potassium 3.3 L Chloride 96 L Carbon Dioxide 35 H BUN 25 H Creatinine 1.46 H Glucose 130 H Calcium 9.3 Liver Function 01/01/19 Range/Units 06:12 Total Bilirubin 0.6 (0.2-1) mg/dl Direct Bilirubin 0.2 (0-0.2) mg/dl AST 12 L (15-37) U/L ALT 17 (12-78) U/L Alkaline Phosphatase 102 (45-117) U/L Albumin 2.9 L (3.4-5.0) gm/dl
[2019-01-01] MEDS ORDERED: cefOXitin 3,000 MG in DEXTROSE 5% 50 ML IV STA (16:06)
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
[2019-01-01] MEDS ORDERED: HYDROmorphone INJ 1 MG/ML SYRINGE IV PRN (17:18)
--- NOTE | 2019-01-01 17:22 | Anesthesiology Progress Note ---
Date of Service January 01, 2019 The patient was discharged to the floor on 4 liters nasal cannula with orders for bedside pulse oximeter. Anesthesia Post Procedure Vital Signs Vital Signs: Temp Pulse Pulse Pulse Pulse Resp BP 01/01/19 17:10 85 12 132/86 01/01/19 17:00 36.3 C L 89 14 150/82 H 01/01/19 16:50 36.3 C L 92 H 15 145/77 H 01/01/19 13:56 36.6 C 75 20 125/79 01/01/19 12:00 36.9 C 76 16 148/81 H 01/01/19 07:30 36.8 C 75 18 147/78 H 01/01/19 04:01 36.8 C 84 20 111/72 01/01/19 00:03 36.8 C 88 20 117/67 12/31/18 21:29 89 12/31/18 19:51 36.9 C 95 H 20 109/72 BP Pulse Ox 01/01/19 17:10 92 01/01/19 17:00 91 01/01/19 16:50 92 01/01/19 13:56 92 01/01/19 12:00 94 01/01/19 07:30 96 01/01/19 04:01 96 01/01/19 00:03 97 12/31/18 21:29 124/72 12/31/18 19:51 90 Pain Intensity Back: Pain Intensity: 8 Left Knee: Pain Intensity: 8 Right Foot: Pain Intensity: 8 Bilateral Neck: Pain Intensity: 8 Generalized: Pain Intensity: 5 Left Ankle: Pain Intensity: 8 Abdomen: Pain Intensity: 8 Notes Mental Status: alert / awake / arousable and participated in evaluation Nausea / Vomiting: adequately controlled Pain: adequately controlled Airway Patency, RR, SpO2: stable & adequate BP & HR: stable & adequate Hydration State: stable & adequate
[2019-01-01] MEDS: PANTOprazole 40 MG TAB PO SCH (20:49)
[2019-01-02] MEDS: OXYCODONE HCL IR 5 MG TAB (IMMEDIATE RELEASE) PO PRN ×5 (05:39→22:16)
[2019-01-02 06:12] LABS: Hematocrit (blood only) 33.8 % (42-52); Hemoglobin 10.9 g/dL (14.0-18.0); Mean Corpuscular Hgb Conc 32.2 g/dL (32-36); Mean Corpuscular Volume 84.5 fL (80-100); Nucleated RBC # (auto) 0.02 K/uL (0-0); Nucleated RBC % (auto) 0.2 %; Platelet Count 306 K/uL (130-400); RDW Coefficient of Variation 16.8 % (11.5-14.5); RDW Standard Deviation 51.1 fL (36.4-46.3)
[2019-01-02 06:34] LABS: BUN Creatinine Ratio 14.9 (10-20); Creatinine Clr Calc Pharmacy 139.3 ml/min; Est GFR (African American) 84.1; Est GFR (Non-African American) 72.5; Potassium 3.7 mmol/L (3.5-5.1)
--- NOTE | 2019-01-02 07:42 | Nephrology Progress Note ---
Date of Service January 02, 2019 Assessment & Plan (1) MAHAMED (acute kidney injury): renal function back to baseline after hemodynamically mediated MAHAMED in setting of diuresis and hypotension. He also had some urinary retention. Cr peaked at 2.8 from a baseline of 1.2. s/p lap appy yesterday. diuretics all on hold currently -recommend starting this PM or tomorrow AM po diuretics >> 80 mg daily torsemide or 80 mg bid lasix; and aldactone 50 mg bid; could continue these at d/c -would hold off on lisinopril for now > could start as OP once stable renal function established -given volume challenges, would d/c on 1.8LFR , < 2 gm daily Na diet, and w/ instructions to log daily wts >>recommend at d/c check bmp weekly x 4; will schedule OP CKD clinic in 6-8 wks<< we will arrange appt; defer to hospitalist to order labs -recommend considering urology f/u given urinary retention will sign off; pls call if ? Subjective had lap appendectomy yesterday d/t foreign body noted in appendix/RLQ pain; c/o significant abd pain this afternoon. no sob, edema stable/slightly improved; tolerating fontaine Physical Exam Vital Signs (Past 24 Hours): Last Vital Signs Temp 36.7 C 01/02/19 04:18 Pulse 83 01/02/19 04:18 Resp 20 01/02/19 04:18 BP 144/76 H 01/02/19 04:18 Pulse Ox 96 01/02/19 04:18 Constitutional: well developed, well nourished and + morbidly obese on 02nc Eyes: EOM intact bilaterally ENMT: Ears: no external ear abnormality Nose: no external nose abnormality Mouth: + dry oral mucous membranes Neck: no nuchal rigidity Respiratory: normal respiratory effort Auscultation: + diminished lung sounds Cardiovascular: Rate/Rhythm: regular rate and regular rhythm Extremities: + edema (1+) Gastrointestinal (Abdomen): Inspection/Auscultation: normal bowel sounds Percussion/Palpation: abdomen soft; abdomen nontender Musculoskeletal: Extremities: strength 5/5 throughout Skin: no rashes, warm and dry Genitourinary: fontaine present Results & Data Laboratory Results Abnormal lab results 01/01/19 01/01/19 01/01/19 Range/Units 07:46 11:49 16:56 WBC (4.8-10.8) K/uL RBC (4.7-6.1) M/uL Hgb (14.0-18.0) g/dL Hct (42-52) % RDW Std Deviation (36.4-46.3) fL RDW Coeff of Megan (11.5-14.5) % Absolute Nucleated RBC (0-0) K/uL Carbon Dioxide (21-32) mmol/L Glucose (70-99) mg/dl POC Glucose 130 H 132 H 149 H (70-99) 01/01/19 01/02/19 01/02/19 Range/Units 20:24 05:49 05:49 WBC 11.00 H (4.8-10.8) K/uL RBC 4.00 L (4.7-6.1) M/uL Hgb 10.9 L (14.0-18.0) g/dL Hct 33.8 L (42-52) % RDW Std Deviation 51.1 H (36.4-46.3) fL RDW Coeff of Megan 16.8 H (11.5-14.5) % Absolute Nucleated RBC 0.02 H (0-0) K/uL Carbon Dioxide 34 H (21-32) mmol/L Glucose 120 H (70-99) mg/dl POC Glucose 114 H (70-99)
[2019-01-02] MEDS: TRAMADOL HCL 50 MG TABLET PO PRN ×3 (07:59→16:55)
[2019-01-02] MEDS: MoRPHine SULFATE CR 15 MG TABCR PO SCH ×3 (07:59→21:26)
[2019-01-02] MEDS: DULOXETINE HCL 60 MG CAP PO SCH (08:00)
[2019-01-02] MEDS: METOPROLOL SUCC 25MG EXT REL TAB PO SCH ×2 (08:00→22:15)
[2019-01-02] MEDS: POTASSIUM CHLORIDE 10 MEQ TABCR PO SCH (08:02)
[2019-01-02] MEDS: TAMSULOSIN HCL 0.4 MG CAP PO SCH (08:02)
[2019-01-02] MEDS: GABAPENTIN 300 MG CAP PO SCH ×3 (08:02→21:27)
[2019-01-02] MEDS: DOCUSATE SODIUM/SENNA 50/8.6MG TAB PO SCH ×2 (08:03→21:30)
[2019-01-02] MEDS: PANTOprazole 40 MG TAB PO SCH ×2 (08:03→21:27)
[2019-01-02] MEDS: SUCRALFATE 1 GM TAB PO SCH ×4 (08:03→21:29)
[2019-01-02] MEDS: TIOTROPIUM BROMIDE 5 PUFF/90 MCG INH INH SCH (08:04)
[2019-01-02] MEDS: LIDOCAINE 5% 1 PATCH TD SCH (08:05)
--- NOTE | 2019-01-02 08:47 | Surgery Progress Note ---
Date of Service January 02, 2019 Assessment & Plan (1) Foreign body alimentary tract: 01/02/2019 POD #1 s/p Laparoscopic Appendectomy, foreign body in appendix. Patient seen and examined with Dr. Branch. Patient doing well from surgical standpoint. Incisions clean, dry, intact, well-approximated, no signs of infection. Pain management per primary service. H and H stable, WBC 11.00 01/01/2019 48 y/o male with foreign body of appendix and some RLQ pain, discussed options, patient elects for surgery plan for laparoscopic appendectomy, possible open today in OR risks discussed to include bleeding, infection, normal appendix, failure to treat pain, damage to surrounding structures, need for future surgery, open surgery, and risks of anesthesia cefoxitin pre op medicine can manage post op pain given history of narcotic use (2) Chronic diastolic CHF (congestive heart failure): (3) Morbid obesity: Supervising Physician Co-Signing Physician Notes pnt s&e, agree with above. 48 y/o [place] male w/ mult med problems, POD#1 lap appy for incidental foreign body in appendix with low grade appendicitis. Overall doing well, some nausea with clears. He was mostly concerned about outpatient pain management. H/o drug seeking behavior, sees pain management. Advance diet as tolerated, pain control per primary. dispo per primary team Subjective Patient resting comfortably bed, very sleepy this AM, but awakes easily with saying name. Per nursing, patient repeatedly asking for pain medications. Tolerating clear liquid diet. Abdominal pain the patient was experiencing prior to surgery has resolved, now pain located at incision sites. Physical Exam Vital Signs (Past 24 Hours): Last Vital Signs Temp 37.0 C 01/02/19 08:06 Pulse 81 01/02/19 08:06 Resp 20 01/02/19 08:06 BP 155/85 H 01/02/19 08:06 Pulse Ox 98 01/02/19 08:06 Gastrointestinal (Abdomen): Inspection/Auscultation: + abdominal surgical incision (dermabond in place, well-approximated, clean, dry, intact. ) Percussion/Palpation: + abdomen tender (as expected as incision sites. ) and abdomen soft
[2019-01-02] MEDS: NICOTINE 7 MG/24 HR TDSY TD SCH (09:54)
[2019-01-02] MEDS: MAGNESIUM OXIDE 400 MG TAB PO SCH (09:54)
[2019-01-02] MEDS: LORazepam 1 MG TAB PO PRN ×2 (10:02→18:19)
[2019-01-02] MEDS: NYSTATIN POWDER 15GM BTL EXT SCH ×2 (10:03→21:30)
[2019-01-02] MEDS: INSULIN ASPART 100 UNITS/ML 3 ML PEN SC SCH ×4 (10:06→21:39)
[2019-01-02] MEDS: CYCLOBENZAPRINE HCL 10 MG TAB PO PRN (11:50)
[2019-01-02] MEDS: POLYETHYLENE (MIRALAX) 17 GM PACK PO SCH (11:54)
[2019-01-02] MEDS: ONDANSETRON INJ 2 MG/ML 2 ML VIAL IV PRN ×2 (11:54→22:15)
--- NOTE | 2019-01-02 16:20 | Hospitalist Progress Note ---
Date of Service January 02, 2019 Assessment & Plan (1) Acute on chronic diastolic CHF (congestive heart failure): Acute on Chronic Diastolic CHF Continue Fluid restriction Continue Metoprolol Monitor daily weight Appreciate Nephrology Input Lloyd catheter for close monitoring and urinary retention Plan to start on Lasix 80mg BID and Aldactone 50mg BID today IV Lasix discontinued Urinary Retention Continue flomax Voiding trial prior to discharge MAHAMED on CKD II-III Due to diuretics/Urinary retention Cr: 1.18 today Contineu to hold Lisinopril Monitor renal function Appreciate Nephrology input Foreign body of appendix CT ABD: There are no acute infectious or inflammatory findings in the abdomen or pelvis. Right-sided nephrolithiasis. Moderate constipation. No bowel obstruction is identified. A metallic foreign body is present within the appendiceal lumen. S/P Laparoscopic Appendectomy POD #1 Pathology pending Appreciate Surgery help (2) Hypotension: Hypotension resolved BP stable continue metoprolol Monitor (3) Pulmonary embolism: H/O PE On chronic anticoagulation--coumadin Coumadin currently held for 1 week-- Plan to restart on 01/05/19 Monitor INR Leukocytosis: Normal Procalcitonin/Lactate Consider Blood Cx if develops fever WBC count stable (4) Supratherapeutic INR: INR > 10.4 on admission Received Vit K 2.5 mg while in ED Resolved Monitor INR Gastritis Hematemesis IV Heparin discontinued Coumadin/Aspirin held for 1 week--Plan to restart on 01/05/19 Continue PPI BID Continue Carafate for 10 days Hb Stable S/P EGD: Normal esophagus, small hiatal hernia, Significant gastritis/Ulcerations, normal duodenum Wait for pathology report Appreciate GI Input Monitor CBC Constipation: Resolved Continue bowel regimen minimize pain Narcotic meds use as able (5) Anemia: monitor CBC (6) COPD (chronic obstructive pulmonary disease): CXR showed no acute process Influenza screen: negative Ongoing Tobacco use Continue Nebs Supplemental Oxygen as needed Tobacco use 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 (8) BPH (benign prostatic hyperplasia): Continue tamsulosin DM II: Last A1C:7.2 Continue ISS (9) Chronic pain disorder: On Chronic pain meds (10) Depression with anxiety: Continue duloxetine (11) DVT prophylaxis: SCDs for now Plan to resume coumadin as able Code Status Full Code Subjective Patient is seen and examined at bedside Complains of abd pain at surgical site Denies chest pain, SOB Tolerating diet No other complaints Physical Exam Vital Signs (Past 24 Hours): Last Vital Signs Temp 36.6 C 01/02/19 11:44 Pulse 84 01/02/19 11:44 Resp 20 01/02/19 11:44 BP 128/71 01/02/19 11:44 Pulse Ox 97 01/02/19 14:13 Physical Exam: Physical Exam: Vitals signs as noted above General Appearance:Morbid Obese, no apparent distress Head: normocephalic, Atraumatic Eyes: normal inspection, EOMI Neck: supple, Trachea midline Respiratory/Chest: Normal breath sounds, CTA Cardiovascular: S1, S2, No murmur Abdomen/GI:Soft, mild tenderat surgical site , Bowel sounds present Extremities/Musculoskelatal:normal inspection, B/L LE edema Neurologic/Psych:AAOX3, grossly no focal neurological deficits Skin: normal color, warm Results & Data Laboratory Results Short CBC 01/02/19 Range/Units 05:49 WBC 11.00 H (4.8-10.8) K/uL Hgb 10.9 L (14.0-18.0) g/dL Hct 33.8 L (42-52) % Plt Count 306 (130-400) K/uL BMP 01/02/19 05:49 Sodium 136 Potassium 3.7 Chloride 98 Carbon Dioxide 34 H BUN 18 Creatinine 1.18 Glucose 120 H Calcium 10.0
[2019-01-02] MEDS: FUROSEMIDE 80 MG TAB PO SCH (18:19)
[2019-01-02] MEDS: SPIRONOLACTONE 25 MG TAB PO SCH (18:20)
[2019-01-02] MEDS ORDERED: TRAMADOL HCL 50 MG TABLET PO STA (20:39)
[2019-01-02] MEDS ORDERED: SODIUM CHLORIDE 0.65% NA SOLN 45 ML (OCEAN) PRN (23:22)
[2019-01-03] MEDS: TRAMADOL HCL 50 MG TABLET PO PRN ×2 (01:16→11:39)
[2019-01-03] MEDS: OXYCODONE HCL IR 5 MG TAB (IMMEDIATE RELEASE) PO PRN ×3 (02:36→13:08)
[2019-01-03] MEDS: LORazepam 1 MG TAB PO PRN ×2 (02:36→11:38)
--- NOTE | 2019-01-03 08:14 | Surgery Progress Note ---
Date of Service January 03, 2019 Assessment & Plan (1) Foreign body alimentary tract: 01/03/2019 POD #2 s/p Laparoscopic Appendectomy, foreign body in appendix. Patient seen and examined with Dr. Branch. Patient doing well from surgical standpoint. Tolerating low fiber diet. 01/02/2019 POD #1 s/p Laparoscopic Appendectomy, foreign body in appendix. Patient seen and examined with Dr. Branch. Patient doing well from surgical standpoint. Incisions clean, dry, intact, well-approximated, no signs of infection. Pain management per primary service. H and H stable, WBC 11.00 01/01/2019 48 y/o male with foreign body of appendix and some RLQ pain, discussed options, patient elects for surgery plan for laparoscopic appendectomy, possible open today in OR risks discussed to include bleeding, infection, normal appendix, failure to treat pain, damage to surrounding structures, need for future surgery, open surgery, and risks of anesthesia cefoxitin pre op medicine can manage post op pain given history of narcotic use (2) Chronic diastolic CHF (congestive heart failure): (3) Morbid obesity: Subjective Patient resting comfortably bed, very sleepy this AM, but awakes easily with saying name. Per nursing, patient repeatedly asking for pain medications. Tolerating low fiber diet. Abdominal pain the patient was experiencing prior to surgery has resolved, now pain located at incision sites. Physical Exam Vital Signs (Past 24 Hours): Last Vital Signs Temp 36.6 C 01/03/19 04:00 Pulse 80 01/03/19 07:00 Resp 18 01/03/19 04:00 BP 131/76 01/03/19 04:00 Pulse Ox 96 01/03/19 04:00 Gastrointestinal (Abdomen): Inspection/Auscultation: + abdominal surgical incision (dermabond in place, well-approximated, clean, dry, intact. ) Percussion/Palpation: + abdomen tender (as expected as incision sites. ) and abdomen soft
[2019-01-03] MEDS: POTASSIUM CHLORIDE 10 MEQ TABCR PO SCH (08:42)
[2019-01-03] MEDS: DULOXETINE HCL 60 MG CAP PO SCH (08:43)
[2019-01-03] MEDS: GABAPENTIN 300 MG CAP PO SCH ×2 (08:43→15:38)
[2019-01-03] MEDS: FUROSEMIDE 80 MG TAB PO SCH (08:43)
[2019-01-03] MEDS: SPIRONOLACTONE 25 MG TAB PO SCH (08:43)
[2019-01-03 08:44] LABS: Hematocrit (blood only) 33.7 % (42-52); Hemoglobin 10.7 g/dL (14.0-18.0); Mean Corpuscular Hgb Conc 31.8 g/dL (32-36); Mean Corpuscular Volume 84.7 fL (80-100); Mean Platelet Volume 10.4 fL (7.4-10.4); Platelet Count 241 K/uL (130-400); RDW Coefficient of Variation 16.8 % (11.5-14.5); Red Blood Count 3.98 M/uL (4.7-6.1); White Blood Count 10.68 K/uL (4.8-10.8)
[2019-01-03] MEDS: SUCRALFATE 1 GM TAB PO SCH ×2 (08:44→13:09)
[2019-01-03] MEDS: DOCUSATE SODIUM/SENNA 50/8.6MG TAB PO SCH (08:44)
[2019-01-03] MEDS: PANTOprazole 40 MG TAB PO SCH (08:44)
[2019-01-03] MEDS: TAMSULOSIN HCL 0.4 MG CAP PO SCH (08:46)
[2019-01-03] MEDS: METOPROLOL SUCC 25MG EXT REL TAB PO SCH (08:46)
[2019-01-03] MEDS: TIOTROPIUM BROMIDE 5 PUFF/90 MCG INH INH SCH (08:46)
[2019-01-03] MEDS: MAGNESIUM OXIDE 400 MG TAB PO SCH (08:47)
[2019-01-03] MEDS: NYSTATIN POWDER 15GM BTL EXT SCH (08:47)
[2019-01-03] MEDS: NICOTINE 7 MG/24 HR TDSY TD SCH (08:48)
[2019-01-03] MEDS: ONDANSETRON INJ 2 MG/ML 2 ML VIAL IV PRN (08:49)
[2019-01-03] MEDS: MoRPHine SULFATE CR 15 MG TABCR PO SCH (08:55)
[2019-01-03] MEDS: LIDOCAINE 5% 1 PATCH TD SCH (08:55)
[2019-01-03] MEDS: INSULIN ASPART 100 UNITS/ML 3 ML PEN SC SCH ×2 (08:57→13:12)
[2019-01-03 09:06] LABS: Prothrombin Time 10.5 Seconds (9.0-12.0)
[2019-01-03 09:22] LABS: BUN Creatinine Ratio 14.7 (10-20); Calcium 9.6 mg/dl (8.5-10.1); Creatinine Clr Calc Pharmacy 139.3 ml/min; Est GFR (African American) 84.1; Est GFR (Non-African American) 72.5; Potassium 3.3 mmol/L (3.5-5.1)
[2019-01-03] MEDS ORDERED: POTASSIUM CHLORIDE 10 MEQ TABCR PO ONE (10:00)
[2019-01-03] MEDS: POLYETHYLENE (MIRALAX) 17 GM PACK PO SCH (11:41)
[2019-01-03] MEDS ORDERED: MoRPHine SULFATE 2 MG/ML CARP IV PRN (12:28)
--- NOTE | 2019-01-03 15:04 | Hospitalist Progress Note ---
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 Right-sided nephrolithiasis. Moderate constipation. No bowel obstruction is identified. A metallic foreign body is present within the appendiceal lumen. S/P Laparoscopic Appendectomy POD #2 Pathology pending Appreciate Surgery help Needs Follow up with Surgery as outpatient (2) Hypotension: Hypotension resolved BP stable continue metoprolol Monitor (3) Pulmonary embolism: H/O PE On chronic anticoagulation--coumadin Coumadin currently held for 1 week-- Plan to restart on 01/05/19 Monitor INR Leukocytosis: Normal Procalcitonin/Lactate Consider Blood Cx if develops fever WBC count stable (4) Supratherapeutic INR: INR > 10.4 on admission Received Vit K 2.5 mg while in ED Resolved Monitor INR Gastritis Hematemesis IV Heparin discontinued Coumadin/Aspirin held for 1 week--Plan to restart on 01/05/19 Continue PPI BID Continue Carafate for 10 days Pathology: Positive for H.Pylori Hb Stable S/P EGD: Normal esophagus, small hiatal hernia, Significant gastritis/Ulcerations, normal duodenum Start him on Abx for H.Pylori--needs 2 weeks of therapy (Off note: Patient would like to start Abx while at home) Appreciate GI Input Monitor CBC Constipation: Resolved Continue bowel regimen minimize pain Narcotic meds use as able (5) Anemia: monitor CBC (6) COPD (chronic obstructive pulmonary disease): CXR showed no acute process Influenza screen: negative Ongoing Tobacco use Continue Nebs Supplemental Oxygen as needed Tobacco use disorder Ceo Na to quit Hypoventilation associated with obesity On supplemental oxygen at bedtime at baseline Oxygen PRN Morbid obesity BMI:61 Ceo Na lifestyle changes (7) Erythema: Erythema of lower extremities is generally chronic left ankle X ray:Soft tissue swelling with no radiographic evidence of acute fracture. (8) BPH (benign prostatic hyperplasia): Continue tamsulosin DM II: Last A1C:7.2 Continue ISS (9) Chronic pain disorder: On Chronic pain meds (10) Depression with anxiety: Continue duloxetine (11) DVT prophylaxis: SCDs for now Plan to resume coumadin as able Code Status Full Code Subjective Patient is seen and examined at bedside Doing much better today Minimal pain at surgical site no new complaints Denies chest pain, SOB, nausea, dizziness Tolerated diet Physical Exam Vital Signs (Past 24 Hours): Last Vital Signs Temp 36.8 C 01/03/19 13:52 Pulse 86 01/03/19 13:52 Resp 20 01/03/19 13:52 BP 120/73 01/03/19 13:52 Pulse Ox 93 01/03/19 13:52 Physical Exam: Physical Exam: Vitals signs as noted above General Appearance:Morbid Obese, no apparent distress Head: normocephalic, Atraumatic Eyes: normal inspection, EOMI Neck: supple, Trachea midline Respiratory/Chest: Normal breath sounds, CTA Cardiovascular: S1, S2, No murmur Abdomen/GI:Soft, non tender, Bowel sounds present Extremities/Musculoskelatal:normal inspection, B/L LE edema Neurologic/Psych:AAOX3, grossly no focal neurological deficits Skin: normal color, warm Results & Data Laboratory Results Short CBC 01/03/19 Range/Units 08:20 WBC 10.68 (4.8-10.8) K/uL Hgb 10.7 L (14.0-18.0) g/dL Hct 33.7 L (42-52) % Plt Count 241 (130-400) K/uL BMP 01/03/19 08:20 Sodium 137 Potassium 3.3 L Chloride 100 Carbon Dioxide 32 BUN 17 Creatinine 1.18 Glucose 130 H Calcium 9.6
[2019-01-03] MEDS ORDERED: BISMUTH SUBSALICYLATE 262 MG CHEW PO SCH (15:45)
[2019-01-03] MEDS ORDERED: metroNIDAZOLE 250 MG TAB PO SCH (15:45)
[2019-01-03] MEDS ORDERED: DOXYCYCLINE HYCLATE 100 MG CAP PO SCH (15:45)
--- NOTE | 2019-01-03 16:13 | Discharge Summary ---
Date of Service January 03, 2019 Admission HPI Per Admitting Provider 40-year-old male who presents the ED with a chief complaint of shortness of breath, leg swelling, weight gain. Patient is very well-known to our service. He was recently admitted to [facility] 12/10 after having a fall at [facility]. During that admission, patient was found to be mildly hypotensive. Lisinopril was discontinued and patient was discharged back to [facility]. Patient reports he only remained there for 1 additional day and was then discharged home. Patient reports that since returning home, he has had increasing weight gain, shortness of breath, lower extremity edema. Patient claims he is adhering to a low-salt diet, fluid restriction, and medication compliance. Patient reports a 14 pound weight gain since arriving home from [facility]. This morning, patient reports he woke up feeling nauseous and had a few episodes of vomiting. He denies hematemesis or coffee-ground emesis. He notes a fever of 102. He reports a mild nonproductive cough. No abdominal pain. He reports chronic constipation. No chest pain. He denies lightheadedness, dizziness, diaphoresis, syncopal events. He reports chronic difficulty emptying his bladder. In the ED, patient is found to have a low-grade temp at 37.9. WBC 12.2 K, INR > 10.4, Hgb 9.7, influenza testing negative. CXR does not show any acute cardio pulmonary findings. Blood pressures intermittently low with systolics in the low 100s. Patient was given IVF, IV Vanco, IV Zosyn, vitamin K 2.5 p.o., morphine 2 mg IV, nebulizer treatment. Admission Exam Per Admitting Provider Constitutional: WD/WN, vitals as above + obese Eyes: PERRL, conjunctivae normal, anicteric sclerae ENMT: external ear and nose normal, oropharynx normal Respiratory: normal respiratory effort; no respiratory distress Some mild expiratory wheezing and coarse breath sounds noted in the upper anterior lung hendrickson Cardiovascular: Rate/Rhythm: regular rate and regular rhythm Vessels: normal peripheral pulses Extremities: + edema (+2-3 edema BLE) Gastrointestinal (Abdomen): normal bowel sounds, soft, nontender, no hepatosplenomegaly Musculoskeletal: no cyanosis or clubbing, extremities motor strength 5/5 Skin: no rashes, warm and dry Mild erythema noted to BLE, no open areas with significant drainage noted Neurologic: PERRL, EOMI, accommodation nl, no face palsy, no dysarthria Psychiatric: A+Ox3, euthymic affect Principal Diagnosis Discharge Information Discharge Diagnosis Acute on chronic diastolic CHF Helicobacter Pylori Gastritis MAHAMED Appendicitis S/P Laparoscopic Appendectomy Urinary Retention Discharge Goals Decrease discomfort,Improve disease control, Improve function Discharge Activity Limitations As commented below Discharge Data Allergies Allergy/AdvReac Type Severity Reaction Status Date / Time fentanyl Allergy Intermediate RASH/HIVES/SKIN Verified 12/18/18 14:09 REDNESS acetaminophen AdvReac Intermediate "THEY TOLD Verified 12/18/18 14:09 ME I GET KIDNEY DISEASE" valproic acid AdvReac Intermediate PANCREATITS Verified 12/18/18 14:09 Consultations 12/18/18 18:53 Consult Case Management - Discharge Planning Routine 12/18/18 19:54 Consult Case Management - Discharge Planning Routine 12/27/18 13:39 Consult Gastroenterology Routine 12/28/18 08:00 Consult Nephrology Routine 12/31/18 23:32 Consult General Surgery Routine Procedures Performed Operation Date: 12/29/18 08:30 Actual Procedures p EGD Biopsy Cytology - Eduardo Chapman DO Operation Date: 01/01/19 12:00 Actual Procedures p Laparoscopic Appendectomy - Yvon Branch, , FACS CT ABD: 1. Significantly suboptimal examination without oral and IV contrast. 2. There are no acute infectious or inflammatory findings in the abdomen or pelvis 3. Right-sided nephrolithiasis. 4. Moderate constipation. No bowel obstruction is identified. 5. A metallic foreign body is present within the appendiceal lumen. This is new from previous. 6. Additional findings as above. CXR: 1. No acute process. 2. Chronic blunting of the right costophrenic angle. 3. Subsegmental left basilar opacities suggest probable atelectasis. 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 Right-sided nephrolithiasis. Moderate constipation. No bowel obstruction is identified. A metallic foreign body is present within the appendiceal lumen. S/P Laparoscopic Appendectomy POD #2 Pathology pending Appreciate Surgery help Needs Follow up with Surgery as outpatient (2) Hypotension: Hypotension resolved BP stable continue metoprolol Monitor (3) Pulmonary embolism: H/O PE On chronic anticoagulation--coumadin Coumadin currently held for 1 week-- Plan to restart on 01/05/19 Monitor INR Leukocytosis: Normal Procalcitonin/Lactate Consider Blood Cx if develops fever WBC count stable (4) Supratherapeutic INR: INR > 10.4 on admission Received Vit K 2.5 mg while in ED Resolved Monitor INR Gastritis Hematemesis IV Heparin discontinued Coumadin/Aspirin held for 1 week--Plan to restart on 01/05/19 Continue PPI BID Continue Carafate for 10 days Pathology: Positive for H.Pylori Hb Stable S/P EGD: Normal esophagus, small hiatal hernia, Significant gastritis/Ulceratio ns, normal duodenum Start him on Abx for H.Pylori--needs 2 weeks of therapy (Off note: Patient would like to start Abx while at home) Appreciate GI Input Monitor CBC Constipation: Resolved Continue bowel regimen minimize pain Narcotic meds use as able (5) Anemia: monitor CBC (6) COPD (chronic obstructive pulmonary disease): CXR showed no acute process Influenza screen: negative Ongoing Tobacco use Continue Nebs Supplemental Oxygen as needed Tobacco use disorder 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 (8) BPH (benign prostatic hyperplasia): Continue tamsulosin DM II: Last A1C:7.2 Continue ISS (9) Chronic pain disorder: On Chronic pain meds (10) Depression with anxiety: Continue duloxetine (11) DVT prophylaxis: SCDs for now Plan to resume coumadin as able Code Status Full Code Total Time Total Time Spent Total Time Spent (In Minutes): 45 minutes Total Time Includes: Examination of the Patient, Discharge Planning, Medication Reconciliation, Communication With Other Providers and Other Discharge Plan Discharge Items Patient Disposition: Home - Home Health Services Reason For Visit: SOB Discharge Diagnosis: Acute on chronic diastolic CHF Helicobacter Pylori Gastritis MAHAMED Appendicitis S/P Laparoscopic Appendectomy Urinary Retention Discharge Goals: Decrease discomfort, Improve disease control and Improve function Activity: As commented below Lifting: Wait until after follow-up appointment Bathing: No limitations Exercise/Sports: Wait until after follow-up appointment Non-emergency contact: Primary Care Provider, Surgeon, Vice President Pharmacy and Gasoline Engine Inspector Call non-emergency contact if: you have any medication questions, your symptoms worsen, your pain is not controlled, your pain is worsening, your pain is unusual for you, your pain is concerning for you, you have a fever, your wound has increased redness, your wound has increased drainage and your wound pain has increased Follow-up/Referrals: Yvon Branch DO, FACS [Physician] - (Please follow-up with Dr. Branch in the General Surgery clinic in 1-2 weeks. Please call the clinic at [phone] to schedule a follow-up appointment. Please call the clinic with any questions or concerns. ) Owen Hogan MD [Primary Care Provider] - Diet: Carb Consistent or DM2, Heart Healthy, Low Fiber and Low Sodium (2gm) Fluids: 1800ml (7 cups) Other Ambulatory Orders: Basic Metabolic Panel (Routine) Timeframe: 1 Week Location: Determined by Patient Ordered By: Dipesh Freedman Provider Instructions: Follow up with for Primary Care on January 05, 2019 at 2:25pm Follow up with your Surgeon Dr.David Branch in 1 week Follow up with your Gasoline Engine Inspector on February 28, 2019 at 11:20AM Follow up with your Pain medicine physician on January 06, 2019 as scheduled Follow up with your Vice President Pharmacy in 2-4 weeks Complete the antibiotics as prescribed Restart taking your Aspirin, Coumadin on January 05, 2019 Do not take lisinopril until further recommendations from your Gasoline Engine Inspector Get Blood test (Basic Metabolic Panel) weekly for 4 weeks and follow up with your Physician with results Follow up with your Coumadin clinic for management of coumadin Your Clonidine and Hydralazine are discontinued due to your low blood pressure. Discuss with your doctor for further recommendations Seek immediate medical attention if your symptoms reoccur or worsen Call your Primary Care doctor if any of the following symptoms or problems start or get worse: * Shortness of breath or difficulty breathing * Wake up at night short of breath * Chest pain * Cough * Swelling of your hands, feet, or legs * More fatigued or tired with your normal activity * Palpitations - sudden fast heart beats WEIGHT * Weigh yourself every morning after using the bathroom. * Use the same scale. * Wear the same amount of clothing. * Write your weight down on a chart. * Call your Primary Care doctor if you gain more than 2-3 pounds in 1-2 days. MEDICATIONS * Use this discharge instruction sheet for medication instructions. * Take your medications at the time your doctor ordered. * Do not skip a dose of your medicines. * If you miss a dose of medicine, take it as soon as possible, but DO NOT DOUBLE A DOSE. * Read your medicine information when you get home. * Know all of the side effects of your medicine. If in doubt, ask your pharmacist * Call your Primary Care doctor's office if you have any side effects. * Be sure all of your doctors know what medicine and herbs you take (including cold, flu, and herbal medicine). Take the following with you to your follow-up doctor appointments: * Weight Chart * Medication List * List of questions Do not drink excessive alcohol, beer or wine. Prescriptions: New doxycycline hyclate 100 mg Capsule 100 mg PO DAILY 14 Days Qty: 14 RF: 0 metronidazole 250 mg Tablet 250 mg PO QID 14 Days Qty: 56 RF: 0 tamsulosin 0.4 mg Capsule 0.4 mg PO QAM 30 Days Qty: 30 RF: 0 furosemide 80 mg Tablet 80 mg PO BID17 30 Days Qty: 30 RF: 0 nicotine [Nicoderm CQ] 7 mg/24 hr Patch 24 Hour 7 mg transdermal QAM Qty: 0 RF: 0 potassium chloride [Klor-Con M10] 10 mEq Tablet,Er Particles/Crystals 20 meq PO DAILY 30 Days Qty: 60 RF: 0 sucralfate 1 gram Tablet 1 g PO QID 5 Days Qty: 20 RF: 0 magnesium oxide 400 mg (241.3 mg magnesium) Tablet 400 mg PO QAM Qty: 0 RF: 0 bismuth subsalicylate [Stomach Relief] 262 mg Tablet,Chewable 2 tab PO QID 14 Days Qty: 112 RF: 0 Continued sennosides-docusate sodium [Senokot-S] 8.6-50 mg Tablet 1 tab PO DAILY PRN (Reason: Constipation) RF: 0 gabapentin 300 mg Capsule 300 mg PO TID RF: 0 lorazepam 1 mg Tablet 1 mg PO TID PRN (Reason: Anxiety) RF: 0 albuterol sulfate [ProAir HFA] 90 mcg/actuation Hfa Aerosol Inhaler 2 puff INHALATION Q4H PRN (Reason: Wheezing) RF: 0 ondansetron 4 mg Tablet,Disintegrating 4 mg PO Q4H PRN (Reason: Nausea And Vomiting) RF: 0 Incruse Ellipta 62.5 mcg/actuation Blister With Device 1 inh INHALATION DAILY RF: 0 isosorbide dinitrate 10 mg tablet 10 mg PO Q12H RF: 0 polyethylene glycol 3350 [Miralax] 17 gram powder in packet 17 g PO DAILY RF: 0 tramadol 50 mg tablet 50 mg PO Q4H PRN (Reason: Pain) RF: 0 spironolactone 25 mg tablet 50 mg PO BID RF: 0 nitroglycerin [Nitrostat] 0.4 mg tablet, sublingual 0.4 mg Sublingual DIRECTED PRN (Reason: CHEST PAIN) RF: 0 docusate sodium 100 mg capsule 100 mg PO BID RF: 0 metoprolol succinate 25 mg tablet extended release 24 hr 25 mg PO Q12H RF: 0 bisacodyl 10 mg Suppository 10 mg MD DAILY PRN (Reason: Constipation) RF: 0 lidocaine [Lidoderm] 5 % Adhesive Patch,Medicated 3 patch TOPICAL DAILY RF: 0 Fleet Enema 19-7 gram/118 mL Enema 133 ml MD DAILY PRN (Reason: Constipation) RF: 0 nystatin 100,000 unit/gram Powder 1 applic TOPICAL BID RF: 0 Milk Of Magnesia Concentrated 2,400 mg/10 mL Suspension 30 ml PO DAILY PRN (Reason: Constipation) RF: 0 ipratropium-albuterol 0.5 mg-3 mg(2.5 mg base)/3 mL Solution For Nebulization 3 ml INHALATION Q4H PRN (Reason: Shortness Of Breath Or Wheezing) RF: 0 Spiriva with HandiHaler 18 mcg Capsule, W/Inhalation Device 1 cap INHALATION DAILY RF: 0 warfarin 5 mg Tablet 5 mg PO SUTUWETHSA RF: 0 warfarin 5 mg Tablet 10 mg PO MOFR RF: 0 morphine 15 mg Tablet Extended Release 15 mg PO Q12H 3 Days Qty: 6 RF: 0 oxycodone 5 mg Tablet 15 mg PO Q4H PRN (Reason: Pain) 3 Days Qty: 10 RF: 0 hydroxyzine HCl 25 mg tablet 25 mg PO QID PRN (Reason: Anxiety) RF: 0 fluticasone propionate 50 mcg/actuation spray,suspension 2 spray Intranasal QAM RF: 0 cyclobenzaprine 10 mg Tablet 10 mg PO TID PRN (Reason: Muscle Spasm) RF: 0 aspirin [Ecotrin Low Strength] 81 mg tablet,delayed release (DR/EC) 81 mg PO QAM RF: 0 duloxetine 60 mg capsule,delayed release(DR/EC) 60 mg PO QAM RF: 0 Changed pantoprazole 40 mg Tablet,Delayed Release (Dr/Ec) 40 mg PO BID 30 Days Qty: 60 RF: 0 Discontinued furosemide 20 mg tablet 60 mg PO TID RF: 0 hydralazine 12.5 mg 12.5 mg PO BID RF: 0 clonidine HCl 0.1 mg tablet 0.1 mg PO Q12H RF: 0 Stand-Alone Forms: [facility] Discharge Orders: Discharge Order (Routine); Ordered 01/03/19 Ordered By: Dipesh Wright Admission Data Admit Date/Time: 12/20/18 07:38 Attending Provider: Dipesh Wright Admit Provider: Xu Silvestre Primary Care Provider: Owen Hogan Other Providers: Aram Gillette ; Yvon Branch ; Eduardo Chapman ; Demetria Arizmendi Service: Telemetry Medical Other Interventions: Discharge Summary Assessment (RN) Last Done: 01/03/19 13:52 Pending Studies at Discharge: Yes Studies:: Pathology report DC Date/Time DO NOT enter until pt leaves facility: 01/03/19 17:13
== END 2019-01-03 17:13 | disposition home health service (06) | DRG 981 ==
LOC: ED 13:19 → 2S 13:19 → 2W 17:56 → SUATTDRO 12-20 07:38

== ENCOUNTER 2019-01-07 17:22 | Inpatient (IN) ==
[2019-01-07] MEDS ORDERED: ONDANSETRON INJ 2 MG/ML 2 ML VIAL IV STA (17:42)
[2019-01-07 18:12] LABS: Basophils # (auto) 0.04 K/uL (0-0.2); Basophils % (auto) 0.3 %; Eosinophils # (auto) 0.38 K/uL (0-0.5); Eosinophils % (auto) 2.7 %; Hematocrit (blood only) 34.3 % (42-52); Hemoglobin 10.9 g/dL (14.0-18.0); Immature Granulocytes # (auto) 0.07 K/uL (0.00-0.02); Immature Granulocytes % (auto) 0.5 %; Lymphocytes # (auto) 2.03 K/uL (1.2-3.4); Lymphocytes % (auto) 14.5 %; Mean Corpuscular Hgb Conc 31.8 g/dL (32-36); Mean Corpuscular Volume 85.8 fL (80-100); Monocytes # (auto) 1.03 K/uL (0.11-0.59); Monocytes % (auto) 7.4 %; Neutrophils # (auto) 10.41 K/uL (1.4-6.5); Neutrophils % (auto) 74.6 %; Nucleated RBC # (auto) 0.11 K/uL (0-0); Nucleated RBC % (auto) 0.8 %; Platelet Count 242 K/uL (130-400); RDW Coefficient of Variation 17.1 % (11.5-14.5); White Blood Count 13.96 K/uL (4.8-10.8)
[2019-01-07 18:33] LABS: Alanine Aminotransferase 25 U/L (12-78); Albumin Level 2.9 gm/dl (3.4-5.0); Aspartate Aminotransferase 26 U/L (15-37); Blood Urea Nitrogen 6 mg/dl (7-18); Calcium 9.6 mg/dl (8.5-10.1); Carbon Dioxide 30 mmol/L (21-32); Chloride 100 mmol/L (98-107); Creatinine Clr Calc Pharmacy 134.6 ml/min; Est GFR (African American) 80.8; Est GFR (Non-African American) 69.7; Glucose 126 mg/dl (70-99); Magnesium 1.7 mg/dl (1.8-2.4); Potassium 3.6 mmol/L (3.5-5.1); Sodium 138 mmol/L (136-145)
[2019-01-07 18:36] LABS: Albumin Globulin Ratio 0.7 (0.9-2); Alkaline Phosphatase 111 U/L (45-117); Bilirubin,Total 0.6 mg/dl (0.2-1); Globulin 3.9 gm/dl (2.5-4.0); Total Protein 6.8 gm/dl (6.4-8.2); Troponin I < 0.015 ng/ml (0-0.045)
--- NOTE | 2019-01-07 18:58 | XRay Report ---
XR chest 1V portable CLINICAL HISTORY: Dyspnea COMPARISON STUDY: 12/27/2018 FINDINGS: The heart is borderline enlarged. There is no lobar consolidation. Slight interstitial prom inence likely relates to technical factors given the patient's large body habitus. There is minor bas ilar atelectatic change. There is slight blunting of the right lateral costophrenic angle.[ IMPRESSION: 1. Diffuse interstitial prominence, a finding likely related to technical factors given the patient's large body habitus 2. No evidence of focal pulmonary consolidation 3. Minor basilar atelectasis 4. Slight blunting of the right lateral costophrenic angle. A small effusion cannot be excluded Electronically signed by: Luis Castro M.D. 01/07/2019 6:56 PM
[2019-01-07 19:00] LABS: INR 1.1 (0.9-1.1); Partial Thromboplastin Ratio 0.9; Partial Thromboplastin Time 23.6 Seconds (21.0-31.0); Prothrombin Time 11.1 Seconds (9.0-12.0)
[2019-01-07 19:02] LABS: D Dimer 4570 ug/L FEU (0-500)
[2019-01-07] MEDS ORDERED: ACETAMINOPHEN 500 MG TAB PO STA (19:20)
--- NOTE | 2019-01-07 19:30 | Emergency Department Note ---
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 (4.7-6.1) M/uL Hgb 10.4 L (14.0-18.0) g/dL Hct 32.8 L (42-52) % MCV 84.3 (80-100) fL MCH 26.7 (25-34) pg MCHC 31.7 L (32-36) g/dL RDW Std Deviation 52.8 H (36.4-46.3) fL RDW Coeff of Megan 17.3 H (11.5-14.5) % Plt Count 245 (130-400) K/uL MPV 9.6 (7.4-10.4) fL Immature Gran % (Auto) 0.6 % Neut % (Auto) 69.3 % Lymph % (Auto) 19.1 % [place] % (Auto) 7.8 % Eos % (Auto) 2.9 % Baso % (Auto) 0.3 % Immature Gran # (Auto) 0.08 H (0.00-0.02) K/uL Neut # (Auto) 9.67 H (1.4-6.5) K/uL Lymph # (Auto) 2.66 (1.2-3.4) K/uL [place] # (Auto) 1.09 H (0.11-0.59) K/uL Eos # (Auto) 0.40 (0-0.5) K/uL Baso # (Auto) 0.04 (0-0.2) K/uL Absolute Nucleated RBC 0.11 H (0-0) K/uL Nucleated RBC % (auto) 0.8 % PT 11.6 (9.0-12.0) Seconds INR 1.1 (0.9-1.1) APTT (21.0-31.0) Seconds PTT Ratio D-Dimer (0-500) ug/L FEU Sodium 136 (136-145) mmol/L Potassium 3.1 L (3.5-5.1) mmol/L Chloride 100 (98-107) mmol/L Carbon Dioxide 33 H (21-32) mmol/L Anion Gap 3.0 (3-11) BUN 7 (7-18) mg/dl Creatinine 1.23 (0.6-1.4) mg/dl Est Cr Clr Drug Dosing 133.0 ml/min Est GFR ( Amer) 80.0 Est GFR (Non-Af Amer) 69.0 BUN/Creatinine Ratio 6.0 L (10-20) Glucose 140 H (70-99) mg/dl POC Glucose (70-99) Calcium 8.9 (8.5-10.1) mg/dl Magnesium 1.7 L (1.8-2.4) mg/dl Total Bilirubin (0.2-1) mg/dl AST (15-37) U/L ALT (12-78) U/L Alkaline Phosphatase (45-117) U/L Troponin I (0-0.045) ng/ml Total Protein (6.4-8.2) gm/dl Albumin (3.4-5.0) gm/dl Globulin (2.5-4.0) gm/dl Albumin/Globulin Ratio (0.9-2) Specimen Hemolysis 01/08/19 01/08/19 Range/Units 07:38 11:51 WBC (4.8-10.8) K/uL RBC (4.7-6.1) M/uL Hgb (14.0-18.0) g/dL Hct (42-52) % MCV (80-100) fL MCH (25-34) pg MCHC (32-36) g/dL RDW Std Deviation (36.4-46.3) fL RDW Coeff of Megan (11.5-14.5) % Plt Count (130-400) K/uL MPV (7.4-10.4) fL Immature Gran % (Auto) % Neut % (Auto) % Lymph % (Auto) % [place] % (Auto) % Eos % (Auto) % Baso % (Auto) % Immature Gran # (Auto) (0.00-0.02) K/uL Neut # (Auto) (1.4-6.5) K/uL Lymph # (Auto) (1.2-3.4) K/uL [place] # (Auto) (0.11-0.59) K/uL Eos # (Auto) (0-0.5) K/uL Baso # (Auto) (0-0.2) K/uL Absolute Nucleated RBC (0-0) K/uL Nucleated RBC % (auto) % PT (9.0-12.0) Seconds INR (0.9-1.1) APTT (21.0-31.0) Seconds PTT Ratio D-Dimer (0-500) ug/L FEU Sodium (136-145) mmol/L Potassium (3.5-5.1) mmol/L Chloride (98-107) mmol/L Carbon Dioxide (21-32) mmol/L Anion Gap (3-11) BUN (7-18) mg/dl Creatinine (0.6-1.4) mg/dl Est Cr Clr Drug Dosing ml/min Est GFR ( Amer) Est GFR (Non-Af Amer) BUN/Creatinine Ratio (10-20) Glucose (70-99) mg/dl POC Glucose 151 H 137 H (70-99) Calcium (8.5-10.1) mg/dl Magnesium (1.8-2.4) mg/dl Total Bilirubin (0.2-1) mg/dl AST (15-37) U/L ALT (12-78) U/L Alkaline Phosphatase (45-117) U/L Troponin I (0-0.045) ng/ml Total Protein (6.4-8.2) gm/dl Albumin (3.4-5.0) gm/dl Globulin (2.5-4.0) gm/dl Albumin/Globulin Ratio (0.9-2) Specimen Hemolysis Imaging Data Radiologist's Impression: Radiology results as stated below per my review and the radiologist's interpretation: US venous doppler LE BI CLINICAL HISTORY: Shortness of breath. Possible pulmonary embolism. COMPARISON STUDY: No previous studies for comparison. FINDINGS: Real-time and color flow Doppler imaging were performed. Flow was seen within the femoral, popliteal and calf veins with no intraluminal thrombus dem onstrated. The saphenous vein is patent. The study was limited from a technical standpoint secondary to the patient's large body habitus (BMI 61) IMPRESSION: No evidence of lower extremity DVT. Electronically signed by: Luis Castro M.D. 01/07/2019 8:54 PM XR chest 1V portable CLINICAL HISTORY: Dyspnea COMPARISON STUDY: 12/27/2018 FINDINGS: The heart is borderline enlarged. There is no lobar consolidation. Slight interstitial prominence likely relates to technical factors given the patient's large body habitus. There is minor basilar atelectatic change. There is slight blunting of the right lateral costophrenic angle.[ IMPRESSION: 1. Diffuse interstitial prominence, a finding likely related to technical factors given the patient's large body habitus 2. No evidence of focal pulmonary consolidation 3. Minor basilar atelectasis 4. Slight blunting of the right lateral costophrenic angle. A small effusion cannot be excluded Electronically signed by: Luis Castro M.D. 01/07/2019 6:56 PM ECG Data Attestation: I personally reviewed and interpreted this ECG as follows: Indication: SOB/dyspnea Rate (beats per minute): 102 Rhythm: sinus tachycardia Findings: + RBBB (Incomplete) and + ST depression (Inferiorly and laterally); no ectopy Comparison ECG Date: from (12/18/18) Change: no significant change Blood Pressure Blood Pressure Findings: Elevated blood pressure Blood Pressure Disposition: further management by hospitalist SUNNY Narrative The patient is a 48-year-old male who presented to the emergency department for evaluation of chest pain shortness of breath. The patient has had multiple admissions to our facility for similar complaints. On his most recent visit he had his appendix out but also was admitted for his breathing difficulty. The patient presents today with significant peripheral edema hypoxia as well as chest discomfort. He recently restarted his Coumadin but his INR is subtherapeutic. He was treated with Lovenox in the emergency department. He was placed on supplement oxygen with good resolution of his hypoxia. I discussed patient's laboratory and radiographic studies with him. Ultrasound did not show any signs of DVT and we were unable to obtain an IV for CT angiography of the chest. This is why the patient was started on Lovenox. I discussed the patient's condition with the on-call [facility] hospitalist. They have agreed to evaluate the patient in the emergency department for further ma nagement and disposition. Impression & Plan SOB (shortness of breath), Hypoxia, Edema, Subtherapeutic international normalized ratio (INR), Chest pain Discharge Plan Visit Data *Final* Discharge Date/Time: 01/07/19 23:33 Chief Complaint: Shortness of Breath/Dyspnea Stated Complaint: SOB ED Provider: Stanton Dyer Discharge Problem: SOB (shortness of breath), Hypoxia, Edema, Subtherapeutic international normalized ratio (INR), Chest pain Patient Disposition: Admitted As Inpatient Discharge Instructions Interventions: ED Discharge Assessment Last Done: 01/07/19 23:33 Discharge Problem: Edema Qualifiers: Edema type: unspecified Qualified Code(s): R60.9 - Edema, unspecified Chest pain Qualifiers: Chest pain type: unspecified Qualified Code(s): R07.9 - Chest pain, unspecified The scribe's documentation has been prepared under my direction and personally reviewed by me in its entirety. I confirm that the note above accurately reflects all work, treatment, procedures, and medical decision making performed by me.
--- NOTE | 2019-01-07 20:56 | Ultrasound Report ---
US venous doppler LE BI CLINICAL HISTORY: Shortness of breath. Possible pulmonary embolism. COMPARISON STUDY: No previous studies for comparison. FINDINGS: Real-time and color flow Doppler imaging were performed. Flow was seen within the femoral, popliteal and calf veins with no intraluminal thrombus demonstrated. The saphenous vein is patent. The study was limited from a technical standpoint secondary to the patient's large body habitus (BMI 61) IMPRESSION: No evidence of lower extremity DVT. Electronically signed by: Luis Castro M.D. 01/07/2019 8:54 PM
[2019-01-07] MEDS ORDERED: ENOXAPARIN 150 MG/ML SYR SQ ONE (21:17)
[2019-01-07] MEDS ORDERED: WARFARIN SOD 5 MG TAB PO ONE (21:40)
[2019-01-08] MEDS ORDERED: NITROGLYCERIN SL 0.4 MG/TAB TAB SL PRN ×2 (00:15)
[2019-01-08] MEDS ORDERED: ALBUT/IPRATROP 3MG/0.5MG NEB 3 ML VIAL INH PRN (00:15)
[2019-01-08] MEDS ORDERED: DOCUSATE SODIUM/SENNA 50/8.6MG TAB PO PRN (00:15)
[2019-01-08] MEDS ORDERED: ACETAMINOPHEN 325 MG TAB PO PRN (00:15)
[2019-01-08] MEDS ORDERED: SOD PHOSPHATE/SOD BIPHOSPHATE ENEMA 132 ML BTL PR PRN (00:15)
[2019-01-08] MEDS ORDERED: BISACODYL 10 MG SUPP PR PRN (00:15)
[2019-01-08] MEDS ORDERED: ALBUTEROL HFA 8 GM INHALER INH PRN (00:15)
[2019-01-08] MEDS ORDERED: FUROSEMIDE 80 MG in SYRINGE 0 ML IV ONE (00:45)
[2019-01-08] MEDS ORDERED: DEXTROSE 50% 50 ML SYRINGE IV PRN (01:30)
[2019-01-08] MEDS ORDERED: GLUCAGON FOR INJ 1 MG VIAL SQ PRN (01:30)
[2019-01-08] MEDS ORDERED: GLUCOSE 10 TABS/TUBE PO PRN (01:30)
[2019-01-08] MEDS ORDERED: GLUCOSE 40% GEL 15 GM TUBE PO PRN (01:30)
[2019-01-08] MEDS ORDERED: CARBOHYDRATES FOR HYPOGLYCEMIA PO PRN (01:30)
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
[2019-01-08 01:47] LABS: Basophils # (auto) 0.04 K/uL (0-0.2); Basophils % (auto) 0.3 %; Eosinophils % (auto) 2.9 %; Hematocrit (blood only) 32.8 % (42-52); Hemoglobin 10.4 g/dL (14.0-18.0); Immature Granulocytes # (auto) 0.08 K/uL (0.00-0.02); Immature Granulocytes % (auto) 0.6 %; Lymphocytes # (auto) 2.66 K/uL (1.2-3.4); Lymphocytes % (auto) 19.1 %; Mean Corpuscular Hgb Conc 31.7 g/dL (32-36); Mean Corpuscular Volume 84.3 fL (80-100); Mean Platelet Volume 9.6 fL (7.4-10.4); Monocytes # (auto) 1.09 K/uL (0.11-0.59); Monocytes % (auto) 7.8 %; Neutrophils # (auto) 9.67 K/uL (1.4-6.5); Neutrophils % (auto) 69.3 %; Nucleated RBC # (auto) 0.11 K/uL (0-0); Nucleated RBC % (auto) 0.8 %; Platelet Count 245 K/uL (130-400); RDW Coefficient of Variation 17.3 % (11.5-14.5); RDW Standard Deviation 52.8 fL (36.4-46.3); Red Blood Count 3.89 M/uL (4.7-6.1); White Blood Count 13.94 K/uL (4.8-10.8)
[2019-01-08] MEDS: SPIRONOLACTONE 25 MG TAB PO SCH ×3 (01:50→17:13)
[2019-01-08] MEDS: ISOSORBIDE DINITRATE 10 MG TAB PO SCH ×3 (01:50→12:12)
[2019-01-08] MEDS: METOPROLOL SUCC 25MG EXT REL TAB PO SCH ×3 (01:50→20:13)
[2019-01-08] MEDS: MoRPHine SULFATE CR 15 MG TABCR PO SCH ×3 (01:54→20:15)
[2019-01-08] MEDS: LORazepam 1 MG TAB PO PRN ×2 (01:56→21:14)
[2019-01-08] MEDS: OXYCODONE HCL IR 5 MG TAB (IMMEDIATE RELEASE) PO PRN ×4 (01:56→20:05)
[2019-01-08 01:57] LABS: INR 1.1 (0.9-1.1); Prothrombin Time 11.6 Seconds (9.0-12.0)
[2019-01-08 02:15] LABS: Calcium 8.9 mg/dl (8.5-10.1); Magnesium 1.7 mg/dl (1.8-2.4); Potassium 3.1 mmol/L (3.5-5.1)
[2019-01-08] MEDS: INSULIN ASPART 100 UNITS/ML 3 ML PEN SC SCH ×4 (09:40→21:21)
[2019-01-08] MEDS: DOXYCYCLINE HYCLATE 100 MG CAP PO SCH (09:41)
[2019-01-08] MEDS: DULOXETINE HCL 60 MG CAP PO SCH (09:42)
[2019-01-08] MEDS: SUCRALFATE 1 GM TAB PO SCH ×4 (09:42→20:07)
[2019-01-08] MEDS: BISMUTH SUBSALICYLATE 262 MG CHEW PO SCH ×4 (09:43→20:11)
[2019-01-08] MEDS: POTASSIUM CHLORIDE 10 MEQ TABCR PO SCH (09:43)
[2019-01-08] MEDS: PANTOprazole 40 MG TAB PO SCH ×2 (09:44→20:10)
[2019-01-08] MEDS: TAMSULOSIN HCL 0.4 MG CAP PO SCH (09:44)
[2019-01-08] MEDS: ASPIRIN 81 MG ECTAB PO SCH (09:44)
[2019-01-08] MEDS: GABAPENTIN 300 MG CAP PO SCH ×3 (09:44→20:08)
[2019-01-08] MEDS: NICOTINE 7 MG/24 HR TDSY TD SCH (09:45)
[2019-01-08] MEDS: metroNIDAZOLE 250 MG TAB PO SCH ×4 (09:45→20:08)
[2019-01-08] MEDS: FUROSEMIDE 80 MG in SYRINGE 0 ML IV SCH ×2 (09:46→17:14)
[2019-01-08] MEDS: LIDOCAINE 5% 1 PATCH TD SCH (09:46)
[2019-01-08] MEDS: TIOTROPIUM BROMIDE 5 PUFF/90 MCG INH INH SCH (09:46)
[2019-01-08] MEDS: FLUTICASONE PROPIONATE NA SPR 16 GM BTL SCH (09:47)
[2019-01-08] MEDS: POLYETHYLENE (MIRALAX) 17 GM PACK PO SCH (09:48)
[2019-01-08] MEDS: NYSTATIN POWDER 15GM BTL EXT SCH ×2 (09:48→20:09)
[2019-01-08] MEDS: DOCUSATE SODIUM 100 MG CAP PO SCH ×2 (09:55→20:07)
[2019-01-08] MEDS: MAGNESIUM OXIDE 400 MG TAB PO SCH ×2 (09:55→20:10)
[2019-01-08] MEDS: INCRUSE ELLIPTA~ORDER AWAITING ACTION SCH ×3 (10:02→15:51)
[2019-01-08] MEDS: Heparin IV Standard *NO* Bolus IV SCH ×4 (11:15→15:35)
[2019-01-08] MEDS: Heparin Adult STANDARD Wt-Based Dextrose 5% 25,000 units/500 mL IV SCH ×2 (11:40→23:17)
[2019-01-08] MEDS: ONDANSETRON 4 MG OD TAB PO PRN ×2 (12:11→17:21)
[2019-01-08] MEDS: WARFARIN SOD 5 MG TAB PO SCH (15:50)
--- NOTE | 2019-01-08 17:00 | Consultation Report ---
DATE OF CONSULTATION: 01/08/2019 REASON FOR CONSULT: Severe fluid overload, CKD and recent acute renal failure. HISTORY OF PRESENT ILLNESS: The patient is a 48-year-old male with super morbid obesity who weighs around 450 pounds, chronic diastolic CHF, hypertension, pulmonary embolism, obesity hypoventilation syndrome as well as COPD, obstructive sleep apnea and many other medical problems. He presented to the hospital yesterday with shortness of breath. He was discharged from the hospital on 01/03/2019, which would be just 4 days prior to this admission. He was prescribed Lasix 80 mg twice daily as well as spironolactone 50 daily to be taken as an outpatient. He did have slight acute renal failure during the previous admission with diuresis, but yesterday at the time of presentation, he has near normal kidney function and her BUN is only 6. During the last admission, creatinine at the peak was 2.84, but by the time he was discharged, it was down to 1.18 and his creatinine is still about the same. It is hard to assess fluid status given his super morbid obesity. He was hypoxic in the Emergency Department with oxygen level down to 85%. He is supposed to be taking oxygen, but he does claim he does not have any. ALLERGIES: Reviewed. PAST MEDICAL HISTORY: As reviewed in the HPI. PAST SURGICAL HISTORY: Foot surgery, colonoscopy, EGD, lumbar laminectomy, recent appendicectomy. FAMILY HISTORY: No significant renal disease. SOCIAL HISTORY: Lives at home with his . He has custody of 2 grandchildren. He smokes every day. No alcohol. REVIEW OF SYSTEMS: As detailed in HPI unless stated otherwise, 12 systems reviewed and negative. PHYSICAL EXAMINATION: GENERAL: Super morbidly obese patient who weighs about 450 pounds. VITAL SIGNS: Temperature 36.8, respiratory rate 22 per minute, pulse rate 85 per minute, blood pressure is 169/70, 93% on room air, 98% on 2 liter nasal cannula. CHEST: Bilateral decreased breath sounds, so hard to examine given morbid obesity. CARDIOVASCULAR: S1 and S2 very distant. ABDOMEN: Morbidly obese, nontender. EXTREMITIES: Shows 2+ edema. LABORATORY TESTS: From this morning shows BUN 6, creatinine is 1.23, potassium 3.1, sodium 136, calcium 8.9, magnesium 1.7, albumin 2.9. Hemoglobin 10.4, platelet count 245, WBC 14,000. Chest x-ray shows diffuse interstitial prominence, poor quality exam given morbid obesity. Venous Doppler was also done and was negative for DVT. ASSESSMENT AND PLAN: Shortness of breath. It appears the patient's shortness of breath etiology is mainly chronic with multifactorial causes including diastolic congestive heart failure, obesity hypoventilation syndrome, possible obstructive sleep apnea. He appears to be in fluid overload and I agree with using IV Lasix. Continue to monitor his renal panel at this time. His BUN is 6, so he is clearly not in any volume depleted state. It is very hard to assess the fluid status with this degree of obesity. He will probably benefit with using oxygen at least at nighttime as he almost certainly has sleep apnea and he already has obesity hypoventilation syndrome. Given his multiple clinical issues, he is at risk of intermittent acute renal failure. No further workup is needed from the renal standpoint. He is currently written to get Lasix 80 mg IV twice daily, which I will continue. Thank you very much for the consult.
--- NOTE | 2019-01-08 17:52 | Hospitalist Progress Note ---
Date of Service January 08, 2019 Assessment & Plan (1) Acute respiratory failure with hypoxia: This is a 48-year-old male who presents with shortness of breath and found to be hypoxic. 1. Hypoxia. Patient presented with hypoxia, was 85% on room air. The patient is morbidly obese, not on any oxygen at home. Likely secondary to acute on chronic diastolic heart failure --Lasix 80 mg IV ordered Spironolactone continue Nephrology consulted for further recommendations Possible recurrence of pulmonary embolism --D-dimer 4000s CT angiogram cannot be performed to lack of necessary IV line INR subtherapeutic Currently on Coumadin bridging with heparin Monitor INR daily --Loading negative for DVTs 2. Shortness of breath, also could be possible pulmonary embolism because patient is supposed to be on Coumadin for history of pulmonary embolism, but it was held because of recent surgery and also gastritis. H --Management as noted above 3. Recent history of foreign body of appendix, status post surgery. Pathology was not significant. 4. History of hypertension, . He is on Toprol-XL and diuretics. Will monitor blood pressure. Last admission, his hydralazine and clonidine was stopped. --Continue blood pressure trend 5. History of anemia. Will monitor CBC. 6. History of chronic obstructive pulmonary disease, ongoing tobacco abuse. Continue his nebs and oxygen as needed. May need 2-step at the time of discharge. 7. Tobacco use disorder. Needs counselling to quit. 8. Hypoventilation associated with obesity. May need to do ABG to see if he qualifies for any home Trilogy or BiPAP.Sleep study. 9. Morbid obesity. Needs constant lifestyle changes. 10. Benign prostatic hyperplasia. Continue his Flomax. He is supposed to see urology. 11. Diabetes, seems to be not on any medications at home. We will put him on diabetic diet. --Repeat A1c pending 12. Gastritis, he had hematemesis last admission. -- He is on Protonix b.i.d. and Carafate for 10 days. Pathology was positive for H. pylori and he needs to be on 2 weeks of antibiotics. Continue his doxycycline and metronidazole x2 weeks 13. Constipation. Continue his bowel regimen. 14. Chronic pain, continue his home pain medications. 15. Depression with anxiety. Continue his duloxetine. 16. Deep venous thrombosis prophylaxis, on Lovenox. Currently, got Lovenox. On Coumadin. Follow INR. 17. Code status. Full code. ALEXANDER López at bedside throughout whole encounter Case discussed with patient in detail, he is comfortable and agree with plan of care Subjective Follow-up for shortness of breath, hypoxia Seen resting in bed, comfortable, appears tired, not in distress States breathing is slightly improved, denies cough, denies chest pain Denies abdominal pain, nausea vomiting No other symptoms Review of Systems Review of Systems: All systems reviewed & are unremarkable except as noted in HPI & below Physical Exam Physical Exam: General- oriented x 3, not in distress, speaks in sentences with no effort or accessory muscle use Morbidly obese Head- atraumatic Eyes- PERRL, EOMI, anicteric ENT- oropharynx clear Neck- supple, no JVD, no adenopathy, no thyromegaly; carotids +2/2, no bruits appreciated Lungs-mild rales bilateral bases, no wheezing Heart- normal rate, regular rhythm; no murmur, no gallop, no rub appreciated Abdomen- normal bowel sounds, nondistended, soft, nontender, no masses or hepatosplenomegaly Extremities- no pretibial edema, no calf tenderness; peripheral pulses intact Neuro- alert, oriented x 3; CN 2-12 grossly intact; motor 5/5 bilaterally;sensation 100% on all extremities; no other gross focal neurologic deficits Skin- warm & dry Results & Data Vital Signs (Past 12 Hours) Vital Signs Temp Pulse Pulse Resp BP Pulse Ox 01/08/19 15:27 36.7 C 20 122/73 92 01/08/19 12:00 36.5 C 89 18 169/70 H 93 01/08/19 08:00 36.7 C 93 H 22 114/78 91 01/08/19 07:19 98 H 01/08/19 06:37 95 H 104/71 92 01/08/19 06:34 73 L Laboratory Results Laboratory Results - last 24 hr 01/07/19 01/07/19 01/07/19 18:01 18:05 18:05 WBC 13.96 H RBC 4.00 L Hgb 10.9 L Hct 34.3 L MCV 85.8 MCH 27.3 MCHC 31.8 L RDW Std Deviation 53.0 H RDW Coeff of Megan 17.1 H Plt Count 242 MPV 10.0 Immature Gran % (Auto) 0.5 Neut % (Auto) 74.6 Lymph % (Auto) 14.5 [place] % (Auto) 7.4 Eos % (Auto) 2.7 Baso % (Auto) 0.3 Immature Gran # (Auto) 0.07 H Neut # (Auto) 10.41 H Lymph # (Auto) 2.03 [place] # (Auto) 1.03 H Eos # (Auto) 0.38 Baso # (Auto) 0.04 Absolute Nucleated RBC 0.11 H Nucleated RBC % (auto) 0.8 PT 11.1 INR 1.1 APTT 23.6 PTT Ratio 0.9 D-Dimer 4570 H* Sodium 138 Potassium 3.6 Chloride 100 Carbon Dioxide 30 Anion Gap 8.0 BUN 6 L Creatinine 1.22 Est Cr Clr Drug Dosing 134.6 Est GFR ( Amer) 80.8 Est GFR (Non-Af Amer) 69.7 BUN/Creatinine Ratio 5.0 L Glucose 126 H POC Glucose Calcium 9.6 Magnesium 1.7 L Total Bilirubin 0.6 AST 26 ALT 25 Alkaline Phosphatase 111 Troponin I < 0.015 Total Protein 6.8 Albumin 2.9 L Globulin 3.9 Albumin/Globulin Ratio 0.7 L Specimen Hemolysis 01/08/19 01/08/19 01/08/19 01:23 01:23 01:23 WBC 13.94 H RBC 3.89 L Hgb 10.4 L Hct 32.8 L MCV 84.3 MCH 26.7 MCHC 31.7 L RDW Std Deviation 52.8 H RDW Coeff of Megan 17.3 H Plt Count 245 MPV 9.6 Immature Gran % (Auto) 0.6 Neut % (Auto) 69.3 Lymph % (Auto) 19.1 [place] % (Auto) 7.8 Eos % (Auto) 2.9 Baso % (Auto) 0.3 Immature Gran # (Auto) 0.08 H Neut # (Auto) 9.67 H Lymph # (Auto) 2.66 [place] # (Auto) 1.09 H Eos # (Auto) 0.40 Baso # (Auto) 0.04 Absolute Nucleated RBC 0.11 H Nucleated RBC % (auto) 0.8 PT 11.6 INR 1.1 APTT PTT Ratio D-Dimer Sodium 136 Potassium 3.1 L Chloride 100 Carbon Dioxide 33 H Anion Gap 3.0 BUN 7 Creatinine 1.23 Est Cr Clr Drug Dosing 133.0 Est GFR ( Amer) 80.0 Est GFR (Non-Af Amer) 69.0 BUN/Creatinine Ratio 6.0 L Glucose 140 H POC Glucose Calcium 8.9 Magnesium 1.7 L Total Bilirubin AST ALT Alkaline Phosphatase Troponin I Total Protein Albumin Globulin Albumin/Globulin Ratio Specimen Hemolysis 01/08/19 01/08/19 01/08/19 07:38 11:51 16:47 WBC RBC Hgb Hct MCV MCH MCHC RDW Std Deviation RDW Coeff of Megan Plt Count MPV Immature Gran % (Auto) Neut % (Auto) Lymph % (Auto) [place] % (Auto) Eos % (Auto) Baso % (Auto) Immature Gran # (Auto) Neut # (Auto) Lymph # (Auto) [place] # (Auto) Eos # (Auto) Baso # (Auto) Absolute Nucleated RBC Nucleated RBC % (auto) PT INR APTT PTT Ratio D-Dimer Sodium Potassium Chloride Carbon Dioxide Anion Gap BUN Creatinine Est Cr Clr Drug Dosing Est GFR ( Amer) Est GFR (Non-Af Amer) BUN/Creatinine Ratio Glucose POC Glucose 151 H 137 H 138 H Calcium Magnesium Total Bilirubin AST ALT Alkaline Phosphatase Troponin I Total Protein Albumin Globulin Albumin/Globulin Ratio Specimen Hemolysis
[2019-01-08 20:06] LABS: Partial Thromboplastin Ratio 1.7
[2019-01-08 20:36] LABS: Partial Thromboplastin Time 46.7 Seconds (21.0-31.0)
[2019-01-09] MEDS: INCRUSE ELLIPTA~ORDER AWAITING ACTION SCH ×3 (01:00→16:09)
[2019-01-09] MEDS: OXYCODONE HCL IR 5 MG TAB (IMMEDIATE RELEASE) PO PRN ×5 (04:31→21:04)
[2019-01-09] MEDS: ISOSORBIDE DINITRATE 10 MG TAB PO SCH ×2 (06:43→13:24)
[2019-01-09 06:45] LABS: Estimated Average Glucose 143 mg/dl; Hemoglobin A1C 6.6 % (4.5-5.6)
[2019-01-09 07:37] LABS: Basophils # (auto) 0.03 K/uL (0-0.2); Basophils % (auto) 0.3 %; Eosinophils # (auto) 0.47 K/uL (0-0.5); Eosinophils % (auto) 4.1 %; Hematocrit (blood only) 31.4 % (42-52); Immature Granulocytes # (auto) 0.06 K/uL (0.00-0.02); Immature Granulocytes % (auto) 0.5 %; Lymphocytes # (auto) 2.22 K/uL (1.2-3.4); Lymphocytes % (auto) 19.2 %; Mean Corpuscular Hgb Conc 31.8 g/dL (32-36); Mean Corpuscular Volume 84.6 fL (80-100); Mean Platelet Volume 10.1 fL (7.4-10.4); Monocytes # (auto) 0.83 K/uL (0.11-0.59); Monocytes % (auto) 7.2 %; Neutrophils # (auto) 7.96 K/uL (1.4-6.5); Neutrophils % (auto) 68.7 %; Platelet Count 230 K/uL (130-400); RDW Standard Deviation 51.6 fL (36.4-46.3); Red Blood Count 3.71 M/uL (4.7-6.1); White Blood Count 11.57 K/uL (4.8-10.8)
[2019-01-09 07:45] LABS: INR 1.4 (0.9-1.1); Prothrombin Time 13.8 Seconds (9.0-12.0)
[2019-01-09 08:13] LABS: BUN Creatinine Ratio 10.2 (10-20); Calcium 9.2 mg/dl (8.5-10.1); Creatinine Clr Calc Pharmacy 107.6 ml/min; Est GFR (African American) 61.9; Est GFR (Non-African American) 53.4; Potassium 3.1 mmol/L (3.5-5.1)
[2019-01-09] MEDS: ONDANSETRON INJ 2 MG/ML 2 ML VIAL IV PRN ×2 (08:17→16:05)
[2019-01-09] MEDS: MoRPHine SULFATE CR 15 MG TABCR PO SCH ×2 (08:17→21:04)
[2019-01-09] MEDS: GABAPENTIN 300 MG CAP PO SCH ×3 (08:22→21:08)
[2019-01-09] MEDS: FUROSEMIDE 80 MG in SYRINGE 0 ML IV SCH ×2 (08:22→16:11)
[2019-01-09] MEDS: SPIRONOLACTONE 25 MG TAB PO SCH ×2 (08:23→16:11)
[2019-01-09] MEDS: SUCRALFATE 1 GM TAB PO SCH ×4 (08:23→21:04)
[2019-01-09] MEDS: TAMSULOSIN HCL 0.4 MG CAP PO SCH (08:23)
[2019-01-09] MEDS: metroNIDAZOLE 250 MG TAB PO SCH (08:23)
[2019-01-09] MEDS: MAGNESIUM OXIDE 400 MG TAB PO SCH ×2 (08:23→21:07)
[2019-01-09] MEDS: DOCUSATE SODIUM 100 MG CAP PO SCH ×2 (08:23→21:05)
[2019-01-09] MEDS: DULOXETINE HCL 60 MG CAP PO SCH (08:23)
[2019-01-09] MEDS: PANTOprazole 40 MG TAB PO SCH ×2 (08:23→21:04)
[2019-01-09] MEDS: POTASSIUM CHLORIDE 10 MEQ TABCR PO SCH ×2 (08:23→13:22)
[2019-01-09] MEDS: METOPROLOL SUCC 25MG EXT REL TAB PO SCH ×2 (08:24→21:05)
[2019-01-09] MEDS: FLUTICASONE PROPIONATE NA SPR 16 GM BTL SCH (08:24)
[2019-01-09] MEDS: ASPIRIN 81 MG ECTAB PO SCH (08:24)
[2019-01-09] MEDS: DOXYCYCLINE HYCLATE 100 MG CAP PO SCH (08:25)
[2019-01-09] MEDS: NYSTATIN POWDER 15GM BTL EXT SCH ×2 (08:25→21:07)
[2019-01-09] MEDS: NICOTINE 7 MG/24 HR TDSY TD SCH (08:25)
[2019-01-09] MEDS: TIOTROPIUM BROMIDE 5 PUFF/90 MCG INH INH SCH (08:25)
[2019-01-09] MEDS: BISMUTH SUBSALICYLATE 262 MG CHEW PO SCH ×3 (08:26→17:10)
[2019-01-09] MEDS: LIDOCAINE 5% 1 PATCH TD SCH (08:26)
[2019-01-09] MEDS: POLYETHYLENE (MIRALAX) 17 GM PACK PO SCH (08:26)
[2019-01-09] MEDS: INSULIN ASPART 100 UNITS/ML 3 ML PEN SC SCH ×4 (08:28→21:12)
[2019-01-09] MEDS ORDERED: POTASSIUM CHLORIDE 10 MEQ TABCR PO ONE (10:16)
[2019-01-09 10:30] LABS: Partial Thromboplastin Time 54.7 Seconds (21.0-31.0)
--- NOTE | 2019-01-09 10:36 | Nephrology Progress Note ---
Date of Service January 09, 2019 Assessment & Plan (1) MAHAMED (acute kidney injury): Patient with acute kidney injury likely in setting of diuresis. Creatinine up to 1.5 from baseline of 1.1-1.2. Patient recently admitted with acute kidney injury with creatinine peak at 2.8 in setting of diuresis. He still has hypervolemia. Agree with continuing diuresis. Monitor with daily BMP. Patient needs strict input output. Would restrict fluid intake to 1.2 L daily (2) Acute respiratory failure with hypoxia: Due to volume overload. Continue IV Lasix 80 mg twice daily. Patient will likely need to be discharged on high dose of torsemide. Monitor daily weight and low-salt diet. (3) Hypokalemia: In setting of diuresis. Increase potassium chloride 40 mEq daily. He will get a total of 60 mEq today. No need to restrict potassium in his diet. Subjective Patient seen in follow-up for acute kidney injury and volume overload. He reports shortness of breath and feeling lousy. He reports some nausea but no vomiting. He has lower extremity edema. No diarrhea. Creatinine is up to 1.5 today. Review of Systems Review of Systems: All systems reviewed & are unremarkable except as noted in HPI & below Physical Exam Physical Exam: General exam: Morbidly obese male, appears comfortable, no acute distress HEENT: Pupils are equal and reactive to light Neck: No JVD, neck is supple trachea is midline Respiratory system: Reduced breath sounds bilaterally. Gastrointestinal: Abdomen is soft, non distended, non tender, bowel sounds are present CVS: Regular rate and rhythm. No murmurs, rubs or gallops Musculoskeletal: No joint or muscle tenderness Extremities: Non tender, 1+ edema, peripheral pulses are present Neuro: Oriented, no tremors, no focal neurological deficits Skin: No rashes Results & Data Vital Signs (Past 12 Hours) Vital Signs Temp Pulse Pulse Resp BP Pulse Ox 01/09/19 07:00 36.8 C 84 20 132/78 88 L 01/09/19 04:17 37 C 84 20 119/79 90 01/09/19 02:58 87 01/08/19 22:45 94 01/08/19 22:35 36.8 C 87 18 98/65 L 88 L Laboratory Results Creatinine 1.5, potassium 3.1, sodium of 138
[2019-01-09] MEDS: Heparin Adult STANDARD Wt-Based Dextrose 5% 25,000 units/500 mL IV SCH ×2 (11:02→22:16)
[2019-01-09] MEDS ORDERED: WARFARIN SOD 10 MG TAB PO SCH (16:00)
[2019-01-09] MEDS ORDERED: XOPENEX/ATROVENT 1.25mg/0.5MG NEB COMBO NEB SCH (16:45)
[2019-01-09] MEDS ORDERED: methylPREDNISolone 60 MG in SYRINGE 0 ML IV STA (16:46)
[2019-01-09] MEDS ORDERED: PHARMACY GLYCEMIC MGMT CONSULT PRN (16:57)
[2019-01-09] MEDS: IPRATROPIUM BROMIDE NEB SOLN 0.02% 2.5 ML VIAL INH SCH ×3 (17:31→23:23)
[2019-01-09] MEDS: LEVALBUTEROL 1.25MG/0.5ML NEB INH SCH ×3 (17:31→23:23)
--- NOTE | 2019-01-09 18:03 | XRay Report ---
XR chest 1V portable CLINICAL HISTORY: 48 years-old Male presenting with wheezing, r/o pneumonia. TECHNIQUE: Portable upright AP view of the chest was obtained. COMPARISON: 01/07/2019. FINDINGS: Cardiac silhouette moderately enlarged, unchanged. Pulmonary vascular prominence with bronchial wall cuffing similar prior. No focal opacity. No large effusion or pneumothorax. Osseous structures normal . Multiple external leads overlie the lower thorax degrading evaluation. IMPRESSION: 1. Allowing for patient body habitus and portable technique, findings suggest volume overload with c ongestive change or reactive airways. However, this appearance may be in part due to AP technique. If symptoms persist, PA and lateral views would be helpful for better characterization. Electronically signed by: Joey Merida M.D. 01/09/2019 6:02 PM
[2019-01-09] MEDS: BISMUTH SUBSALICYLATE SUSP PO SCH (21:12)
[2019-01-09] MEDS: LORazepam 1 MG TAB PO PRN (22:17)
[2019-01-09] MEDS: methylPREDNISolone 60 MG in SYRINGE 0 ML IV SCH (22:18)
[2019-01-09] MEDS ORDERED: methylPREDNISolone 125 MG/2 ML VIAL IV SCH (23:00)
[2019-01-10] MEDS: OXYCODONE HCL IR 5 MG TAB (IMMEDIATE RELEASE) PO PRN ×5 (01:11→17:57)
[2019-01-10] MEDS: ONDANSETRON INJ 2 MG/ML 2 ML VIAL IV PRN ×3 (01:17→18:03)
[2019-01-10] MEDS: INCRUSE ELLIPTA~ORDER AWAITING ACTION SCH ×4 (04:06→23:30)
[2019-01-10] MEDS: IPRATROPIUM BROMIDE NEB SOLN 0.02% 2.5 ML VIAL INH SCH ×5 (04:08→19:22)
[2019-01-10] MEDS: LEVALBUTEROL 1.25MG/0.5ML NEB INH SCH ×5 (04:09→19:22)
[2019-01-10 06:36] LABS: INR 2.1 (0.9-1.1); Partial Thromboplastin Ratio 2.6; Prothrombin Time 20.3 Seconds (9.0-12.0)
[2019-01-10 06:52] LABS: BUN Creatinine Ratio 13.2 (10-20); Calcium 9.4 mg/dl (8.5-10.1); Est GFR (Non-African American) 59.5; Potassium 3.8 mmol/L (3.5-5.1)
[2019-01-10 06:59] LABS: Partial Thromboplastin Time 71.5 Seconds (21.0-31.0)
[2019-01-10] MEDS: Heparin Adult STANDARD Wt-Based Dextrose 5% 25,000 units/500 mL IV SCH (07:06)
[2019-01-10] MEDS: ISOSORBIDE DINITRATE 10 MG TAB PO SCH ×2 (07:24→12:29)
[2019-01-10] MEDS: methylPREDNISolone 60 MG in SYRINGE 0 ML IV SCH ×3 (07:24→21:28)
--- NOTE | 2019-01-10 07:40 | Hospitalist Progress Note ---
Date of Service delayed entry date of service 01/09January 10, 2019 Assessment & Plan (1) Acute respiratory failure with hypoxia: This is a 48-year-old male who presents with shortness of breath and found to be hypoxic. 1. Hypoxia. Patient presented with hypoxia, was 85% on room air. The patient is morbidly obese, not on any oxygen at home. Likely secondary to acute on chronic diastolic heart failure --Lasix 80 mg IV ordered Spironolactone continued Nephrology consulted for further recommendations -- IV solumedrol ordered Nebs ordered Possible recurrence of pulmonary embolism --D-dimer 4000s CT angiogram cannot be performed to lack of necessary IV line INR subtherapeutic Currently on Coumadin bridging with heparin Monitor INR daily --Doppler US negative for DVTs 2. Shortness of breath, also could be possible pulmonary embolism because patient is supposed to be on Coumadin for history of pulmonary embolism, but it was held because of recent surgery and also gastritis. H --Management as noted above 3. Recent history of foreign body of appendix, status post surgery. Pathology was not significant. 4. History of hypertension, . He is on Toprol-XL and diuretics. Will monitor blood pressure. Last admission, his hydralazine and clonidine was stopped. --Continue blood pressure trending 5. History of anemia. Will monitor CBC. 6. History of chronic obstructive pulmonary disease, ongoing tobacco abuse. Continue his nebs and oxygen as needed. May need 2-step at the time of discharge. 7. Tobacco use disorder. Needs counselling to quit. 8. Hypoventilation associated with obesity. May need to do ABG to see if he qualifies for any home Trilogy or BiPAP.Sleep study. 9. Morbid obesity. Needs constant lifestyle changes. 10. Benign prostatic hyperplasia. Continue his Flomax. He is supposed to see urology. 11. Diabetes, seems to be not on any medications at home. We will put him on diabetic diet. --Repeat A1c 6.6 12. Gastritis, he had hematemesis last admission. -- He is on Protonix b.i.d. and Carafate for 10 days. Pathology was positive for H. pylori and he needs to be on 2 weeks of antibiotics. -- patient has nausea with doxycycline 13. Constipation. Continue his bowel regimen. 14. Chronic pain, continue his home pain medications. 15. Depression with anxiety. Continue his duloxetine. 16. Deep venous thrombosis prophylaxis,heparin + coumadin 17. Code status. Full code. ALEXANDER López at bedside throughout whole encounter Case discussed with patient in detail, he is comfortable and agree with plan of care Subjective ff up for hypoxia, CHF acute on chronic seen resting in bed, not in distress appears weak reports increased shortness of breath no cough no chest pain denies other symptoms Review of Systems Review of Systems: All systems reviewed & are unremarkable except as noted in HPI & below Physical Exam Physical Exam: General- oriented x 3, not in distress, speaks in sentences with no effort or accessory muscle use Eyes- anicteric Neck- no JVD Lungs- (+) mild wheeze bilaterally no rhonchi Heart- normal rate, regular rhythm; no murmurs Abdomen- normal bowel sounds, nondistended, soft, nontender Extremities- (+) grade 2 lower leg edema, no calf tenderness Neuro- alert, oriented x 3; no gross focal neurologic deficits Skin- warm & dry Results & Data Vital Signs (Past 12 Hours) Vital Signs Temp Pulse Pulse Resp BP Pulse Ox 01/10/19 07:31 86 18 92 01/10/19 07:00 36.6 C 85 22 134/79 90 01/10/19 00:03 90 01/10/19 00:00 87 01/09/19 23:41 37 C 89 20 111/67 90 01/09/19 19:43 92 H 16 90
[2019-01-10] MEDS: TAMSULOSIN HCL 0.4 MG CAP PO SCH (08:02)
[2019-01-10] MEDS: MAGNESIUM OXIDE 400 MG TAB PO SCH ×2 (08:02→21:19)
[2019-01-10] MEDS: SPIRONOLACTONE 25 MG TAB PO SCH ×2 (08:02→17:58)
[2019-01-10] MEDS: PANTOprazole 40 MG TAB PO SCH ×2 (08:02→21:26)
[2019-01-10] MEDS: SUCRALFATE 1 GM TAB PO SCH ×4 (08:02→21:27)
[2019-01-10] MEDS: DULOXETINE HCL 60 MG CAP PO SCH (08:02)
[2019-01-10] MEDS: ASPIRIN 81 MG ECTAB PO SCH (08:02)
[2019-01-10] MEDS: DOCUSATE SODIUM 100 MG CAP PO SCH ×2 (08:02→21:20)
[2019-01-10] MEDS: METOPROLOL SUCC 25MG EXT REL TAB PO SCH ×2 (08:02→21:27)
[2019-01-10] MEDS: POTASSIUM CHLORIDE 10 MEQ TABCR PO SCH (08:03)
[2019-01-10] MEDS: FLUTICASONE PROPIONATE NA SPR 16 GM BTL SCH (08:03)
[2019-01-10] MEDS: FUROSEMIDE 80 MG in SYRINGE 0 ML IV SCH ×2 (08:03→18:00)
[2019-01-10] MEDS: NICOTINE 7 MG/24 HR TDSY TD SCH (08:04)
[2019-01-10] MEDS: BISMUTH SUBSALICYLATE SUSP PO SCH ×3 (08:04→19:47)
[2019-01-10] MEDS: TIOTROPIUM BROMIDE 5 PUFF/90 MCG INH INH SCH (08:05)
[2019-01-10] MEDS: GABAPENTIN 300 MG CAP PO SCH ×2 (08:05→13:43)
[2019-01-10] MEDS: LORazepam 1 MG TAB PO PRN (08:11)
[2019-01-10] MEDS: MoRPHine SULFATE CR 15 MG TABCR PO SCH ×2 (08:11→21:18)
[2019-01-10] MEDS: POLYETHYLENE (MIRALAX) 17 GM PACK PO SCH (08:11)
[2019-01-10] MEDS: INSULIN ASPART 100 UNITS/ML 3 ML PEN SC SCH ×4 (08:13→21:29)
[2019-01-10] MEDS: LIDOCAINE 5% 1 PATCH TD SCH (08:16)
[2019-01-10] MEDS: NYSTATIN POWDER 15GM BTL EXT SCH ×2 (08:16→21:26)
[2019-01-10] MEDS ORDERED: INSULIN GLARGINE SOLOSTAR 100 UNITS/ML 3 ML PEN SC SCH ×2 (09:00→21:00)
--- NOTE | 2019-01-10 15:21 | Pharmacy Report ---
Glycemic Control Consultation - Date of Service January 10, 2019 - Scope Scope: Glycemic Pharmacist consulted by Dr Clark on 01/09/19 for glycemic control and to write orders per [facility] inpatient glycemic control protocol - Objective Weight: 204.4 kg Accuchecks BSG (last 24hrs): 01/09/19 01/09/19 01/10/19 16:20 20:17 05:26 Glucose 185 H POC Glucose 137 H 145 H 01/10/19 01/10/19 07:41 11:42 Glucose POC Glucose 171 H 242 H Laboratory Data (last 24hrs): 01/10/19 05:26 Potassium 3.8 D Carbon Dioxide 30 Anion Gap 7.0 Creatinine 1.39 Est Cr Clr Drug Dosing 118.0 HbA1c: Hemoglobin A1c 6.6 % (4.5-5.6) H 01/08/19 01:23 - Recent Pertinent Medications Outpatient Anti-diabetic Regimen: * Patient reports he does not take anti-diabetic medications as an outpatient * A1c = 6.6 % 01/08/19 Risk Factors for Insulin Resistance: * Steroids: Solumedrol 60mg q8h, received first dose last evening * Diet: T2DM - Assessment & Plan Assessment & Plan: ASSESSMENT: * Pt is a 48 M with PMH significant for COPD and CHF who presented to [facility] on 01/08 with acute resp failure * A1c = 6.6%, collected 01/08 * Pt reports he does not take any anti-diabetic medications at home * Pharmacy consulted on 01/09. Goal range of 120-160 mg/dl/unit and CF of 30 mg/dl initiated. * Pt received first dose Solumedrol 60mg q8h on the evening of 01/09. Lantus was added and CF/CR was tightened today as BSGs are expected to rise in response to IV steroids. PLAN FOR INPATIENT GLYCEMIC CONTROL: * Basal insulin per scale: * 5 units if BSG less than 120 mg/dl * 10 units if BSG 120-180 mg/dl * 15 units if BSG greater than 180 mg/dl * Bolus insulin - tightened * NovoLog per scale ACHS or Q6hrs while NPO * Goal Range: Low 120 mg/dL - High 160 mg/dL * Correction Factor: 20 mg/dL/unit * Nutritional / Prandial insulin per carb ratio of 1 unit per 7 grams CHO consumed * Please note that the plan above was derived based on current level of insulin resistance and hospital stress. These recommendations are appropriate for inpatient admission only. Plan of care upon discharge will need to be reassessed to avoid potential outpatient hypo/hyperglycemia. Thank you.
--- NOTE | 2019-01-10 17:06 | Nephrology Progress Note ---
Date of Service January 10, 2019 Assessment & Plan (1) MAHAMED (acute kidney injury): Patient with acute kidney injury likely in setting of diuresis. Creatinine at 1.39 from baseline of 1.1-1.2. Patient recently admitted with acute kidney injury with creatinine peak at 2.8 in setting of diuresis. He still has hypervolemia. he is getting a lot of fluids from heparin. Heparin will be stopped today Agree with continuing diuresis. Monitor with daily BMP. Patient needs strict input output. Would restrict fluid intake to 1.2 L daily (2) Acute respiratory failure with hypoxia: Due to volume overload. Continue IV Lasix 80 mg twice daily. Patient wi ll likely need to be discharged on high dose of torsemide. Monitor daily weight and low-salt diet. (3) Hypokalemia: In setting of diuresis. k 3.8 today. Continue potassium chloride 40 mEq daily. No need to restrict potassium in his diet. Subjective Patient seen in f/u for MAHAMED and volume overload. He complains of SOB. He is getting a lot of fluids in the heparin and drinking 1.8 litres as well. Has leg swelling. He is quite sedentary.Cr uptrending. Review of Systems Review of Systems: All systems reviewed & are unremarkable except as noted in HPI & below Physical Exam Physical Exam: General exam: Obese male, Appears comfortable, no acute distress HEENT: Pupils are equal and reactive to light Neck: No JVD, neck is supple trachea is midline Respiratory system: Reduced breath sounds bilaterally. Gastrointestinal: Abdomen is soft, non distended, non tender, bowel sounds are present CVS: Regular rate and rhythm. No murmurs, rubs or gallops Musculoskeletal: No joint or muscle tenderness Extremities: Non tender, 1+ edema, peripheral pulses are present Neuro: Oriented, no tremors, no focal neurological deficits Skin: No rashes Results & Data Vital Signs (Past 12 Hours) Vital Signs Temp Pulse Pulse Resp BP BP Pulse Ox 01/10/19 15:52 36.7 C 93 H 18 106/61 93 01/10/19 15:05 90 16 92 01/10/19 13:07 36.5 C 85 24 101/60 87 L 01/10/19 07:44 84 01/10/19 07:31 86 18 92 01/10/19 07:00 36.6 C 85 22 134/79 90
[2019-01-10] MEDS: WARFARIN SOD 5 MG TAB PO SCH (17:59)
[2019-01-10] MEDS ORDERED: HYDROmorphone INJ 1 MG/ML SYRINGE IV STA (19:17)
[2019-01-10] MEDS: TRAMADOL HCL 50 MG TABLET PO PRN (21:17)
[2019-01-10] MEDS: GABAPENTIN 600 MG TAB PO SCH (21:26)
[2019-01-10] MEDS ORDERED: SODIUM CHLORIDE 0.65% NA SOLN 45 ML (OCEAN) PRN (22:00)
[2019-01-11] MEDS: OXYCODONE HCL IR 5 MG TAB (IMMEDIATE RELEASE) PO PRN ×6 (00:38→23:35)
[2019-01-11] MEDS: TRAMADOL HCL 50 MG TABLET PO PRN ×4 (01:21→21:38)
[2019-01-11] MEDS: LORazepam 1 MG TAB PO PRN ×2 (01:22→21:10)
[2019-01-11] MEDS: ISOSORBIDE DINITRATE 10 MG TAB PO SCH ×2 (06:04→12:46)
[2019-01-11] MEDS: methylPREDNISolone 60 MG in SYRINGE 0 ML IV SCH ×2 (06:04→17:08)
[2019-01-11] MEDS: ONDANSETRON INJ 2 MG/ML 2 ML VIAL IV PRN ×3 (06:08→17:07)
--- NOTE | 2019-01-11 06:25 | Hospitalist Progress Note ---
Date of Service delayed entry date of service 01/10/19 January 11, 2019 Assessment & Plan (1) Acute respiratory failure with hypoxia: This is a 48-year-old male who presents with shortness of breath and found to be hypoxic. 1. Hypoxia. Patient presented with hypoxia, was 85% on room air. The patient is morbidly obese, not on any oxygen at home. Likely secondary to acute on chronic diastolic heart failure --Lasix 80 mg IV ordered Spironolactone continued still (+) balance Nephrology consulted Possible recurrence of pulmonary embolism --D-dimer 4000s CT angiogram cannot be performed to lack of necessary IV line INR 2.1 Currently on Coumadin Monitor INR daily --LE Doppler: negative for DVTs 2. Shortness of breath, also could be possible pulmonary embolism because patient is supposed to be on Coumadin for history of pulmonary embolism, but it was held because of recent surgery and also gastritis. H --Management as noted above 3. Recent history of foreign body of appendix, status post surgery. Pathology was not significant. 4. History of hypertension, . He is on Toprol-XL and diuretics. Will monitor blood pressure. Last admission, his hydralazine and clonidine was stopped. --Continue blood pressure trend 5. History of anemia. Will monitor CBC. 6. History of chronic obstructive pulmonary disease, ongoing tobacco abuse. Continue his nebs and oxygen as needed. May need 2-step at the time of discharge. -- (+) exacerbation SOlumedrol, Nebs wheezing resolved 7. Tobacco use disorder. Needs counselling to quit. 8. Hypoventilation associated with obesity. May need to do ABG to see if he qualifies for any home Trilogy or BiPAP.Sleep study. 9. Morbid obesity. Needs constant lifestyle changes. 10. Benign prostatic hyperplasia. Continue his Flomax. He is supposed to see urology. 11. Diabetes, seems to be not on any medications at home. We will put him on diabetic diet. --Repeat A1c pending 12. Gastritis, he had hematemesis last admission. -- He is on Protonix b.i.d. and Carafate for 10 days. Pathology was positive for H. pylori and he needs to be on 2 weeks of antibiotics. Continue his doxycycline and metronidazole x2 weeks 13. Constipation. Continue his bowel regimen. 14. Chronic pain, continue his home pain medications. 15. Depression with anxiety. Continue his duloxetine. 16. Deep venous thrombosis prophylaxis, on Lovenox. Currently, got Lovenox. On Coumadin. Follow INR. 17. Code status. Full code. ALEXANDER López at bedside throughout whole encounter Case discussed with patient in detail, he is comfortable and agree with plan of care Subjective ff up CHF exacerbation seen resting in bed, tearful states he has severe low back pain radiating to the left after moving no numbness dyspnea improving denies depression, anxiety no other symptoms Review of Systems Review of Systems: All systems reviewed & are unremarkable except as noted in HPI & below Physical Exam Physical Exam: General- oriented x 3, not in distress, speaks in sentences with no effort or accessory muscle use Eyes- anicteric Neck- no JVD Lungs- mild rales bl bases, no wheezing Heart- normal rate, regular rhythm; no murmurs Abdomen- normal bowel sounds, nondistended, soft, nontender Extremities- grade 2 lower leg edema, no calf tenderness Neuro- alert, oriented x 3; no gross focal neurologic deficits Skin- warm & dry Results & Data Vital Signs (Past 12 Hours) Vital Signs Temp Pulse Resp BP Pulse Ox 01/11/19 04:04 36.8 C 81 18 101/65 91 01/10/19 22:45 36.8 C 90 20 113/67 92 01/10/19 20:00 36.5 C 98 H 20 116/62 93 01/10/19 19:22 90 16 94 Laboratory Results noted and reviewed
[2019-01-11] MEDS: IPRATROPIUM BROMIDE NEB SOLN 0.02% 2.5 ML VIAL INH SCH ×4 (07:13→19:07)
[2019-01-11] MEDS: LEVALBUTEROL 1.25MG/0.5ML NEB INH SCH ×4 (07:13→19:07)
[2019-01-11] MEDS: SPIRONOLACTONE 25 MG TAB PO SCH ×2 (07:48→17:54)
[2019-01-11] MEDS: DULOXETINE HCL 60 MG CAP PO SCH (07:49)
[2019-01-11] MEDS: FLUTICASONE PROPIONATE NA SPR 16 GM BTL SCH (07:49)
[2019-01-11] MEDS: TAMSULOSIN HCL 0.4 MG CAP PO SCH (07:49)
[2019-01-11] MEDS: ASPIRIN 81 MG ECTAB PO SCH (07:49)
[2019-01-11] MEDS: DOCUSATE SODIUM 100 MG CAP PO SCH ×2 (07:49→21:10)
[2019-01-11] MEDS: POTASSIUM CHLORIDE 10 MEQ TABCR PO SCH (07:50)
[2019-01-11] MEDS: LIDOCAINE 5% 1 PATCH TD SCH (07:50)
[2019-01-11] MEDS: FUROSEMIDE 80 MG in SYRINGE 0 ML IV SCH ×2 (07:50→17:07)
[2019-01-11] MEDS: POLYETHYLENE (MIRALAX) 17 GM PACK PO SCH (07:51)
[2019-01-11] MEDS: MAGNESIUM OXIDE 400 MG TAB PO SCH ×2 (07:51→20:59)
[2019-01-11] MEDS: MoRPHine SULFATE CR 15 MG TABCR PO SCH ×2 (07:51→20:58)
[2019-01-11] MEDS: NYSTATIN POWDER 15GM BTL EXT SCH ×2 (07:51→20:58)
[2019-01-11] MEDS: GABAPENTIN 600 MG TAB PO SCH ×3 (07:52→20:59)
[2019-01-11] MEDS: NICOTINE 7 MG/24 HR TDSY TD SCH (07:52)
[2019-01-11] MEDS: TIOTROPIUM BROMIDE 5 PUFF/90 MCG INH INH SCH (07:53)
[2019-01-11] MEDS: METOPROLOL SUCC 25MG EXT REL TAB PO SCH ×2 (07:53→20:59)
[2019-01-11] MEDS: PANTOprazole 40 MG TAB PO SCH ×2 (07:53→21:00)
[2019-01-11] MEDS: INCRUSE ELLIPTA~ORDER AWAITING ACTION SCH ×3 (07:54→23:11)
[2019-01-11] MEDS: SUCRALFATE 1 GM TAB PO SCH ×4 (07:55→21:00)
[2019-01-11] MEDS: BISMUTH SUBSALICYLATE SUSP PO SCH ×5 (08:30→21:01)
[2019-01-11] MEDS: INSULIN GLARGINE SOLOSTAR 100 UNITS/ML 3 ML PEN SC SCH ×2 (08:33→21:05)
[2019-01-11] MEDS: INSULIN ASPART 100 UNITS/ML 3 ML PEN SC SCH ×4 (08:33→21:03)
[2019-01-11 08:36] LABS: INR 3.6 (0.9-1.1); Prothrombin Time 33.6 Seconds (9.0-12.0)
[2019-01-11 08:44] LABS: BUN Creatinine Ratio 19.1 (10-20); Calcium 9.6 mg/dl (8.5-10.1); Creatinine Clr Calc Pharmacy 127.1 ml/min; Est GFR (African American) 75.5; Est GFR (Non-African American) 65.1
--- NOTE | 2019-01-11 10:49 | Pharmacy Report ---
Pharmacy Glycemic Short Note 2 - Date of Service January 11, 2019 - Glycemic Short BSG Results (Last 24 hours): 01/10/19 01/10/19 01/11/19 11:42 21:27 07:41 Glucose POC Glucose 242 H 225 H 180 H 01/11/19 07:58 Glucose 165 H POC Glucose OUTPATIENT ANTIDIABETIC REGIMEN: * None per patient. ASSESSMENT: * Patient received total of 64 units of insulins; 30 units of which was basal and 34 units correctional + prandial. * Fasting BSG = 180; Lantus dosing increased to 20 units this AM; continue HS Lantus based on scale. * Post-prandial BSGs were high and > 200 yesterday. Therefore CF and CR with Novolog tightened based on weight and stress of 2. * Patient continues to be on Solu-medrol but dosing decreased to 60 mg IV q12h starting this evening. Expect steroids to continue to affect post-prandial BSG. PLAN FOR INPATIENT GLYCEMIC CONTROL: * Basal insulin: * Lantus SQ BID based on scale: - BSG less than 160: give 15 units - BSG 160 - 200: give 20 units - BSG greater than 200: give 25 units * Bolus insulin: tightened * NovoLog per scale ACHS or Q6hrs while NPO * Goal Range: Low 110 mg/dL - High 140 mg/dL * Correction Factor: 10 mg/dL/unit * Nutritional / Prandial insulin per carb ratio of 1 unit per 4 grams CHO consumed PLAN FOR DISCHARGE: * HbA1c = 6.6% on 01/08/19 indicates that patient is diabetic but very close to being in control. Recommend life-style modifications as first line therapy for diabetes management. Another option is possibly starting Metformin in addition to life-style changes.
--- NOTE | 2019-01-11 10:49 | Hospitalist Progress Note ---
Date of Service delayed entry date of service 01/10.pef January 11, 2019 Assessment & Plan (1) Acute respiratory failure with hypoxia: This is a 48-year-old male who presents with shortness of breath and found to be hypoxic. 1. Hypoxia. Patient presented with hypoxia, was 85% on room air. The patient is morbidly obese, not on any oxygen at home. Likely secondary to acute on chronic diastolic heart failure --Lasix 80 mg IV ordered Spironolactone continued continue to monitor diuresis Nephrology consulted -- continue Solumedrol , nebs Possible recurrence of pulmonary embolism --D-dimer 4000s CT angiogram cannot be performed to lack of necessary IV line INR 2.1 Currently on Coumadin Monitor INR daily --LE Doppler: negative for DVTs 2. Shortness of breath, also could be possible pulmonary embolism because patient is supposed to be on Coumadin for history of pulmonary embolism, but it was held because of recent surgery and also gastritis. H --Management as noted above 3. Recent history of foreign body of appendix, status post surgery. Pathology was not significant. 4. History of hypertension, . He is on Toprol-XL and diuretics. Will monitor blood pressure. Last admission, his hydralazine and clonidine was stopped. --Continue blood pressure trend 5. History of anemia. Will monitor CBC. 6. History of chronic obstructive pulmonary disease, ongoing tobacco abuse. Continue his nebs and oxygen as needed. May need 2-step at the time of discharge. -- (+) exacerbation SOlumedrol, Nebs 7. Tobacco use disorder. Needs counselling to quit. 8. Hypoventilation associated with obesity. May need to do ABG to see if he qualifies for any home Trilogy or BiPAP.Sleep study. 9. Morbid obesity. Needs constant lifestyle changes. 10. Benign prostatic hyperplasia. Continue his Flomax. He is supposed to see urology. 11. Diabetes, seems to be not on any medications at home. We will put him on diabetic diet. --Repeat A1c 6.6 12. Gastritis, he had hematemesis last admission. -- He is on Protonix b.i.d. and Carafate for 10 days. -- nausea with DOxycycline 13. Constipation. Continue his bowel regimen. 14. Chronic pain, continue his home pain medications. -- requesting 1 dose of dilaudid will monitor respiratory status closely 15. Depression with anxiety. Continue his duloxetine. 16. Deep venous thrombosis prophylaxis, coumadin 17. Code status. Full code. Case discussed with patient and in detail, he is comfortable and agree with plan of care Subjective ff up for hypoxia, acute on chronic CHF seen resting in bed, tearful states back pain worsened after being moved, radiated to left leg no numbness breathing improving no other symptoms Review of Systems Review of Systems: All systems reviewed & are unremarkable except as noted in HPI & below Physical Exam Physical Exam: General- oriented x 3, tearful, speaks in sentences with no effort or accessory muscle use Eyes- anicteric Neck- no JVD Lungs- mild wheeze b/l Heart- normal rate, regular rhythm; no murmurs Abdomen- normal bowel sounds, nondistended, soft, nontender Extremities- grade 2 lower leg edema, no calf tenderness Neuro- alert, oriented x 3; no gross focal neurologic deficits Skin- warm & dry Results & Data Vital Signs (Past 12 Hours) Vital Signs Temp Pulse Pulse Resp BP BP Pulse Ox 01/11/19 07:15 36.4 C L 72 79 18 101/62 91 01/11/19 04:04 36.8 C 81 18 101/65 91 Laboratory Results noted reviewed
[2019-01-11] MEDS ORDERED: HYDROmorphone INJ 1 MG/ML SYRINGE IV ONE (10:50)
--- NOTE | 2019-01-11 11:03 | Nephrology Progress Note ---
Date of Service January 11, 2019 Assessment & Plan (1) MAHAMED (acute kidney injury): Patient with acute kidney injury likely in setting of diuresis. Creatinine at 1.29 from baseline of 1.1-1.2. Patient recently admitted with acute kidney injury with creatinine peak at 2.8 in setting of diuresis. He still has hypervolemia. Agree with continuing diuresis. Monitor with daily BMP. Patient needs strict input output. Continue torestrict fluid intake to 1.2 L daily (2) Acute respiratory failure with hypoxia: Due to volume overload. Continue IV Lasix 80 mg twice daily. Patient will likely need to be discharged on high dose of torsemide. Monitor daily weight and low-salt diet. (3) Hypokalemia: In setting of diuresis. k 4 today. Continue potassium chloride 40 mEq daily. No need to restrict potassium in his diet. Subjective Patient seen in follow-up for acute kidney injury and volume overload. He is complaining of shortness of breath and back pain. He injured his back while changing rooms. Urine output has increased and was net -1.5 L yesterday. Still has massive edema. Creatinine Stable at 1.29 Review of Systems Review of Systems: All systems reviewed & are unremarkable except as noted in HPI & below Physical Exam Physical Exam: General exam: Morbidly obese male, appears comfortable, no acute distress HEENT: Pupils are equal and reactive to light Neck: No JVD, neck is supple trachea is midline Respiratory system: Reduced breath sounds bilaterally. Gastrointestinal: Abdomen is soft, non distended, non tender, bowel sounds are present CVS: Regular rate and rhythm. No murmurs, rubs or gallops Musculoskeletal: No joint or muscle tenderness Extremities: Non tender, 1+ edema, peripheral pulses are present Neuro: Oriented, no tremors, no focal neurological deficits Skin: Dry skin and scratch herrera Results & Data Vital Signs (Past 12 Hours) Vital Signs Temp Pulse Pulse Resp BP BP Pulse Ox 01/11/19 07:15 36.4 C L 72 79 18 101/62 91 01/11/19 04:04 36.8 C 81 18 101/65 91 Laboratory Results Laboratory Results - last 24 hr 01/10/19 01/10/19 01/11/19 11:42 21:27 07:41 PT INR Sodium Potassium Chloride Carbon Dioxide Anion Gap BUN Creatinine Est Cr Clr Drug Dosing Est GFR ( Amer) Est GFR (Non-Af Amer) BUN/Creatinine Ratio Glucose POC Glucose 242 H 225 H 180 H Calcium 01/11/19 01/11/19 07:58 07:58 PT 33.6 H INR 3.6 H Sodium 139 Potassium 4.0 Chloride 102 Carbon Dioxide 32 Anion Gap 5.0 BUN 25 H Creatinine 1.29 Est Cr Clr Drug Dosing 127.1 Est GFR ( Amer) 75.5 Est GFR (Non-Af Amer) 65.1 BUN/Creatinine Ratio 19.1 Glucose 165 H POC Glucose Calcium 9.6
[2019-01-11] MEDS: CYCLOBENZAPRINE HCL 10 MG TAB PO PRN (21:38)
[2019-01-11] MEDS ORDERED: Nursing to Pharmacy Communication ONE (22:11)
[2019-01-12] MEDS: TRAMADOL HCL 50 MG TABLET PO PRN ×4 (01:40→20:47)
[2019-01-12] MEDS: OXYCODONE HCL IR 5 MG TAB (IMMEDIATE RELEASE) PO PRN ×4 (06:09→20:04)
[2019-01-12] MEDS: methylPREDNISolone 60 MG in SYRINGE 0 ML IV SCH ×2 (06:10→17:47)
[2019-01-12] MEDS: ISOSORBIDE DINITRATE 10 MG TAB PO SCH ×2 (06:14→12:02)
[2019-01-12 07:25] LABS: INR 3.2 (0.9-1.1); Prothrombin Time 29.9 Seconds (9.0-12.0)
[2019-01-12] MEDS: LEVALBUTEROL 1.25MG/0.5ML NEB INH SCH ×4 (07:34→19:31)
[2019-01-12] MEDS: IPRATROPIUM BROMIDE NEB SOLN 0.02% 2.5 ML VIAL INH SCH ×4 (07:34→19:31)
[2019-01-12 07:50] LABS: BUN Creatinine Ratio 22.2 (10-20); Calcium 9.2 mg/dl (8.5-10.1); Creatinine Clr Calc Pharmacy 122.4 ml/min; Est GFR (African American) 72.1; Est GFR (Non-African American) 62.2; Potassium 4.1 mmol/L (3.5-5.1)
[2019-01-12] MEDS: SPIRONOLACTONE 25 MG TAB PO SCH ×2 (08:51→16:35)
[2019-01-12] MEDS: SUCRALFATE 1 GM TAB PO SCH ×4 (08:51→20:03)
[2019-01-12] MEDS: POTASSIUM CHLORIDE 10 MEQ TABCR PO SCH (08:53)
[2019-01-12] MEDS: TAMSULOSIN HCL 0.4 MG CAP PO SCH (08:53)
[2019-01-12] MEDS: FLUTICASONE PROPIONATE NA SPR 16 GM BTL SCH (08:53)
[2019-01-12] MEDS: ASPIRIN 81 MG ECTAB PO SCH (08:53)
[2019-01-12] MEDS: FUROSEMIDE 80 MG in SYRINGE 0 ML IV SCH ×2 (08:53→17:47)
[2019-01-12] MEDS: DULOXETINE HCL 60 MG CAP PO SCH (08:53)
[2019-01-12] MEDS: LIDOCAINE 5% 1 PATCH TD SCH (08:54)
[2019-01-12] MEDS: GABAPENTIN 600 MG TAB PO SCH ×3 (08:54→20:03)
[2019-01-12] MEDS: NICOTINE 7 MG/24 HR TDSY TD SCH (08:54)
[2019-01-12] MEDS: MoRPHine SULFATE CR 15 MG TABCR PO SCH ×2 (08:54→20:05)
[2019-01-12] MEDS: MAGNESIUM OXIDE 400 MG TAB PO SCH ×2 (08:54→20:04)
[2019-01-12] MEDS: NYSTATIN POWDER 15GM BTL EXT SCH ×2 (08:54→19:59)
[2019-01-12] MEDS: TIOTROPIUM BROMIDE 5 PUFF/90 MCG INH INH SCH (08:56)
[2019-01-12] MEDS: PANTOprazole 40 MG TAB PO SCH ×2 (08:56→20:54)
[2019-01-12] MEDS: METOPROLOL SUCC 25MG EXT REL TAB PO SCH ×2 (08:57→20:03)
[2019-01-12] MEDS: INCRUSE ELLIPTA~ORDER AWAITING ACTION SCH ×3 (08:57→23:49)
[2019-01-12] MEDS: ONDANSETRON INJ 2 MG/ML 2 ML VIAL IV PRN ×2 (08:57→20:54)
[2019-01-12] MEDS: BISMUTH SUBSALICYLATE SUSP PO SCH ×4 (08:58→20:48)
[2019-01-12] MEDS: INSULIN ASPART 100 UNITS/ML 3 ML PEN SC SCH ×4 (09:00→21:08)
[2019-01-12] MEDS: INSULIN GLARGINE SOLOSTAR 100 UNITS/ML 3 ML PEN SC SCH ×2 (09:01→21:08)
[2019-01-12] MEDS: POLYETHYLENE (MIRALAX) 17 GM PACK PO SCH (09:03)
[2019-01-12] MEDS: CYCLOBENZAPRINE HCL 10 MG TAB PO PRN ×2 (09:05→18:12)
--- NOTE | 2019-01-12 10:19 | Nephrology Progress Note ---
Date of Service January 12, 2019 Assessment & Plan (1) MAHAMED (acute kidney injury): Patient with acute kidney injury likely in setting of diuresis. Creatinine at 1.3 from baseline of 1.1-1.2. Patient recently admitted with acute kidney injury with creatinine peak at 2.8 in setting of diuresis. He still has hypervolemia. Agree with continuing diuresis. Monitor with daily BMP. Patient needs strict input output. Continue to restrict fluid intake at 1.6 L daily (2) Acute respiratory failure with hypoxia: Due to volume overload. Continue IV Lasix 80 mg twice daily. Patient will likely need to be discharged on high dose of torsemide. Monitor daily weight and low-salt diet. (3) Hypokalemia: In setting of diuresis. k 4.1 today. Continue potassium chloride 40 mEq daily. No need to restrict potassium in his diet. Subjective Patient seen in follow-up for acute kidney event were removed followed. He reports feeling like crap this morning. He is complaining of back pain and shortness of breath. He is diuresing well and was net -2.6 L yesterday. He is requesting increase of the fluid restriction. Review of Systems Review of Systems: All systems reviewed & are unremarkable except as noted in HPI & below Physical Exam Physical Exam: General exam: Obese male, appears comfortable on oxygen, no acute distress HEENT: Pupils are equal and reactive to light Neck: No JVD, neck is supple trachea is midline Respiratory system: Reduced breath sounds bilaterally. Gastrointestinal: Abdomen is soft, non distended, non tender, bowel sounds are present CVS: Regular rate and rhythm. No murmurs, rubs or gallops Musculoskeletal: No joint or muscle tenderness Extremities: Non tender, 1+ edema, peripheral pulses are present Neuro: Oriented, no tremors, no focal neurological deficits Skin: No rashes Results & Data Vital Signs (Past 12 Hours) Vital Signs Temp Pulse Pulse Pulse Resp BP Pulse Ox 01/12/19 08:18 36.4 C L 64 20 120/70 93 01/12/19 07:34 18 L 62 18 95 01/12/19 06:11 70 150/71 H Laboratory Results Laboratory Results - last 24 hr 01/11/19 01/11/19 01/11/19 11:48 16:55 20:04 PT INR Sodium Potassium Chloride Carbon Dioxide Anion Gap BUN Creatinine Est Cr Clr Drug Dosing Est GFR ( Amer) Est GFR (Non-Af Amer) BUN/Creatinine Ratio Glucose POC Glucose 222 H 101 H 178 H Calcium 01/12/19 01/12/19 06:51 06:51 PT 29.9 H INR 3.2 H Sodium 140 Potassium 4.1 Chloride 103 Carbon Dioxide 33 H Anion Gap 4.0 BUN 30 H Creatinine 1.34 Est Cr Clr Drug Dosing 122.4 Est GFR ( Amer) 72.1 Est GFR (Non-Af Amer) 62.2 BUN/Creatinine Ratio 22.2 H Glucose 165 H POC Glucose Calcium 9.2
[2019-01-12] MEDS: DOCUSATE SODIUM 100 MG CAP PO SCH ×2 (12:02→20:47)
[2019-01-12] MEDS: WARFARIN SOD 5 MG TAB PO SCH (16:00)
[2019-01-12] MEDS: LORazepam 1 MG TAB PO PRN (17:51)
[2019-01-13] MEDS: TRAMADOL HCL 50 MG TABLET PO PRN ×6 (00:55→22:05)
[2019-01-13] MEDS: CYCLOBENZAPRINE HCL 10 MG TAB PO PRN ×3 (02:17→23:36)
[2019-01-13] MEDS: LORazepam 1 MG TAB PO PRN ×2 (02:19→20:10)
[2019-01-13] MEDS: OXYCODONE HCL IR 5 MG TAB (IMMEDIATE RELEASE) PO PRN ×6 (04:01→19:58)
--- NOTE | 2019-01-13 05:51 | Hospitalist Progress Note ---
Date of Service delayed entry date of service 01/12January 13, 2019 Assessment & Plan (1) Acute respiratory failure with hypoxia: This is a 48-year-old male who presents with shortness of breath and found to be hypoxic. 1. Hypoxia. Patient presented with hypoxia, was 85% on room air. The patient is morbidly obese, not on any oxygen at home. Likely secondary to acute on chronic diastolic heart failure --Lasix 80 mg IV ordered Spironolactone continued diuresing Nephrology consulted -- continue Solumedrol , nebs Possible recurrence of pulmonary embolism --D-dimer 4000s CT angiogram cannot be performed to lack of necessary IV line INR 2.1 Currently on Coumadin Monitor INR daily --LE Doppler: negative for DVTs 2. Shortness of breath, also could be possible pulmonary embolism because patient is supposed to be on Coumadin for history of pulmonary embolism, but it was held because of recent surgery and also gastritis. H --Management as noted above 3. Recent history of foreign body of appendix, status post surgery. Pathology was not significant. 4. History of hypertension, . He is on Toprol-XL and diuretics. Will monitor blood pressure. Last admission, his hydralazine and clonidine was stopped. --Continue blood pressure trend 5. History of anemia. --monitor CBC. 6. History of chronic obstructive pulmonary disease, ongoing tobacco abuse. Continue his nebs and oxygen as needed. May need 2-step at the time of discharge. -- (+) exacerbation SOlumedrol, Nebs 7. Tobacco use disorder. Needs counselling to quit. 8. Hypoventilation associated with obesity. May need to do ABG to see if he qualifies for any home Trilogy or BiPAP.Sleep study. 9. Morbid obesity. Needs constant lifestyle changes. 10. Benign prostatic hyperplasia. Continue his Flomax. He is supposed to see urology. 11. Diabetes, seems to be not on any medications at home. We will put him on diabetic diet. --Repeat A1c 6.6 12. Gastritis, he had hematemesis last admission. -- He is on Protonix b.i.d. and Carafate for 10 days. -- nausea with DOxycycline 13. Constipation. Continue his bowel regimen. 14. Chronic pain, continue his home pain medications. -- monitor respiratory status closely 15. Depression with anxiety. Continue his duloxetine. 16. Deep venous thrombosis prophylaxis, coumadin 17. Code status. Full code. Case discussed with patient and in detail, he is comfortable and agree with plan of care Subjective ff up for CHF exacerbation seen resting in bed, comfortable states breathing is somewhat improved back pain slightly improved denies numbness denies other symptoms Review of Systems Review of Systems: All systems reviewed & are unremarkable except as noted in HPI & below Physical Exam Physical Exam: General- oriented x 3, not in distress, speaks in sentences with no effort or accessory muscle use Eyes- anicteric Neck- no JVD Lungs- mild wheeze, no rhonchi Heart- normal rate, regular rhythm; no murmurs Abdomen- normal bowel sounds, nondistended, soft, nontender Extremities-grade 2 lower leg edema, no calf tenderness Neuro- alert, oriented x 3; no gross focal neurologic deficits Skin- warm & dry Results & Data Vital Signs (Past 12 Hours) Vital Signs Temp Pulse Pulse Resp BP BP Pulse Ox 01/12/19 22:35 36.8 C 74 20 133/65 96 01/12/19 19:40 75 121/76 Laboratory Results all noted and reviewed
--- NOTE | 2019-01-13 05:57 | Hospitalist Progress Note ---
Date of Service delayed entry date of service 01/12January 13, 2019 Assessment & Plan (1) Acute respiratory failure with hypoxia: This is a 48-year-old male who presents with shortness of breath and found to be hypoxic. 1. Hypoxia. Patient presented with hypoxia, was 85% on room air. The patient is morbidly obese, not on any oxygen at home. Likely secondary to acute on chronic diastolic heart failure --Lasix 80 mg IV ordered Spironolactone continued diuresing Nephrology consulted -- continue Solumedrol , nebs -- wean off o2 Possible recurrence of pulmonary embolism --D-dimer 4000s CT angiogram cannot be performed to lack of necessary IV line INR 3.2 Currently on Coumadin Monitor INR daily --LE Doppler: negative for DVTs 2. Shortness of breath, also could be possible pulmonary embolism because patient is supposed to be on Coumadin for history of pulmonary embolism, but it was held because of recent surgery and also gastritis. H --Management as noted above 3. Recent history of foreign body of appendix, status post surgery. Pathology was not significant. 4. History of hypertension, . He is on Toprol-XL and diuretics. Will monitor blood pressure. Last admission, his hydralazine and clonidine was stopped. --Continue blood pressure trend 5. History of anemia. --monitor CBC. 6. History of chronic obstructive pulmonary disease, ongoing tobacco abuse. Continue his nebs and oxygen as needed. May need 2-step at the time of discharge. -- (+) exacerbation SOlumedrol, Nebs 7. Tobacco use disorder. Needs counselling to quit. 8. Hypoventilation associated with obesity. May need to do ABG to see if he qualifies for any home Trilogy or BiPAP.Sleep study. 9. Morbid obesity. Needs constant lifestyle changes. 10. Benign prostatic hyperplasia. Continue his Flomax. -- patient reports retention at home Urology consulted 11. Diabetes, seems to be not on any medications at home. We will put him on diabetic diet. --Repeat A1c 6.6 12. Gastritis, he had hematemesis last admission. -- He is on Protonix b.i.d. and Carafate for 10 days. -- nausea with DOxycycline 13. Constipation. Continue his bowel regimen. 14. Chronic pain, continue his home pain medications. -- monitor respiratory status closely 15. Depression with anxiety. Continue his duloxetine. 16. Deep venous thrombosis prophylaxis, coumadin 17. Code status. Full code. Case discussed with patient and in detail, he is comfortable and agree with plan of care Subjective ff up for acute chf seen resting in bed comfortable at bedside not in distress states breathing is about the same pain improving no other symptoms Review of Systems Review of Systems: All systems reviewed & are unremarkable except as noted in HPI & below Physical Exam Physical Exam: General- oriented x 3, not in distress, speaks in sentences with no effort or accessory muscle use Eyes- anicteric Neck- no JVD Lungs- mild rales at the bases b/l Heart- normal rate, regular rhythm; no murmurs Abdomen- normal bowel sounds, nondistended, soft, nontender Extremities- grade 2 lower leg edema, no calf tenderness Neuro- alert, oriented x 3; no gross focal neurologic deficits Skin- warm & dry Results & Data Vital Signs (Past 12 Hours) Vital Signs Temp Pulse Pulse Resp BP BP Pulse Ox 01/12/19 22:35 36.8 C 74 20 133/65 96 01/12/19 19:40 75 121/76 Laboratory Results noted reviewed
[2019-01-13] MEDS: methylPREDNISolone 60 MG in SYRINGE 0 ML IV SCH ×2 (06:05→17:53)
[2019-01-13 06:27] LABS: INR 2.1 (0.9-1.1); Prothrombin Time 20.3 Seconds (9.0-12.0)
[2019-01-13] MEDS: ISOSORBIDE DINITRATE 10 MG TAB PO SCH ×2 (06:44→14:10)
[2019-01-13 06:45] LABS: BUN Creatinine Ratio 25.1 (10-20); Calcium 9.3 mg/dl (8.5-10.1); Est GFR (Non-African American) 59.5; Potassium 4.4 mmol/L (3.5-5.1)
[2019-01-13] MEDS: IPRATROPIUM BROMIDE NEB SOLN 0.02% 2.5 ML VIAL INH SCH ×4 (07:16→19:08)
[2019-01-13] MEDS: LEVALBUTEROL 1.25MG/0.5ML NEB INH SCH ×4 (07:17→19:08)
--- NOTE | 2019-01-13 09:46 | Nephrology Progress Note ---
Date of Service January 13, 2019 Assessment & Plan (1) MAHAMED (acute kidney injury): Patient with acute kidney injury likely in setting of diuresis. Creatinine at 1.39 from baseline of 1.1-1.2. Patient recently admitted with acute kidney injury with creatinine peak at 2.8 in setting of diuresis. He still has hypervolemia. Agree with continuing diuresis. Monitor with daily BMP. Patient needs strict input output. Increase fluid restriction to 1.8 L daily per patient request (2) Acute respiratory failure with hypoxia: Due to volume overload. Reduce IV Lasix to 40 mg twice daily. Patient will likely need to be discharged on torsemide as he did not respond to p.o. Lasix. Monitor daily weight and low-salt diet. (3) Hypokalemia: In setting of diuresis. k 4.1 today. Continue potassium chloride 40 mEq daily. No need to restrict potassium in his diet. Subjective Patient seen in follow-up for volume management. Still complaining of shortness of breath. He has chronic back pain. He is quite sedentary. He was notable times increased he was net -5.9 L yesterday. Creatinine up to 1.39 today. Review of Systems Review of Systems: All systems reviewed & are unremarkable except as noted in HPI & below Physical Exam Physical Exam: General exam: Morbidly obese male, appears comfortable, no acute distress. Oxygen saturation of 88 to 90% on room air HEENT: Pupils are equal and reactive to light Neck: No JVD, neck is supple trachea is midline Respiratory system: Reduced breath sounds bilaterally. Gastrointestinal: Abdomen is soft, non distended, non tender, bowel sounds are present CVS: Regular rate and rhythm. No murmurs, rubs or gallops Musculoskeletal: No joint or muscle tenderness Extremities: Non tender, 1+ edema, peripheral pulses are present Neuro: Oriented, no tremors, no focal neurological deficits Skin: No rashes Results & Data Vital Signs (Past 12 Hours) Vital Signs Temp Pulse Pulse Resp BP BP Pulse Ox 01/13/19 07:13 36.8 C 65 20 101/58 L 93 01/13/19 06:43 69 128/67 01/12/19 22:35 36.8 C 74 20 133/65 96 Laboratory Results Laboratory Results - last 24 hr 01/12/19 01/12/19 01/12/19 11:49 16:31 16:32 PT INR Sodium Potassium Chloride Carbon Dioxide Anion Gap BUN Creatinine Est Cr Clr Drug Dosing Est GFR ( Amer) Est GFR (Non-Af Amer) BUN/Creatinine Ratio Glucose POC Glucose 205 H 344 H* 178 H Calcium 01/12/19 01/12/19 01/13/19 16:33 19:49 05:57 PT 20.3 H INR 2.1 H Sodium Potassium Chloride Carbon Dioxide Anion Gap BUN Creatinine Est Cr Clr Drug Dosing Est GFR ( Amer) Est GFR (Non-Af Amer) BUN/Creatinine Ratio Glucose POC Glucose 164 H 164 H Calcium 01/13/19 01/13/19 05:57 07:46 PT INR Sodium 138 Potassium 4.4 Chloride 99 Carbon Dioxide 34 H Anion Gap 5.0 BUN 35 H Creatinine 1.39 Est Cr Clr Drug Dosing 118.0 Est GFR ( Amer) 69.0 Est GFR (Non-Af Amer) 59.5 BUN/Creatinine Ratio 25.1 H Glucose 178 H POC Glucose 184 H Calcium 9.3
[2019-01-13] MEDS: ONDANSETRON INJ 2 MG/ML 2 ML VIAL IV PRN ×2 (10:17→20:10)
[2019-01-13] MEDS: SPIRONOLACTONE 25 MG TAB PO SCH ×2 (10:24→17:52)
[2019-01-13] MEDS: SUCRALFATE 1 GM TAB PO SCH ×4 (10:25→21:22)
[2019-01-13] MEDS: DULOXETINE HCL 60 MG CAP PO SCH (10:26)
[2019-01-13] MEDS: FLUTICASONE PROPIONATE NA SPR 16 GM BTL SCH (10:27)
[2019-01-13] MEDS: ASPIRIN 81 MG ECTAB PO SCH (10:27)
[2019-01-13] MEDS: TAMSULOSIN HCL 0.4 MG CAP PO SCH (10:27)
[2019-01-13] MEDS: POTASSIUM CHLORIDE 10 MEQ TABCR PO SCH (10:28)
[2019-01-13] MEDS: INSULIN GLARGINE SOLOSTAR 100 UNITS/ML 3 ML PEN SC SCH ×2 (10:30→21:26)
[2019-01-13] MEDS: MAGNESIUM OXIDE 400 MG TAB PO SCH ×2 (10:31→21:20)
[2019-01-13] MEDS: LIDOCAINE 5% 1 PATCH TD SCH (10:32)
[2019-01-13] MEDS: GABAPENTIN 600 MG TAB PO SCH ×3 (10:33→21:21)
[2019-01-13] MEDS: NYSTATIN POWDER 15GM BTL EXT SCH ×2 (10:33→21:27)
[2019-01-13] MEDS: NICOTINE 7 MG/24 HR TDSY TD SCH (10:34)
[2019-01-13] MEDS: BISMUTH SUBSALICYLATE SUSP PO SCH ×4 (10:36→21:24)
[2019-01-13] MEDS: PANTOprazole 40 MG TAB PO SCH ×2 (10:37→21:22)
[2019-01-13] MEDS: METOPROLOL SUCC 25MG EXT REL TAB PO SCH ×2 (10:39→21:22)
[2019-01-13] MEDS: INSULIN ASPART 100 UNITS/ML 3 ML PEN SC SCH ×4 (10:42→21:28)
[2019-01-13] MEDS: INCRUSE ELLIPTA~ORDER AWAITING ACTION SCH ×3 (10:45→23:38)
[2019-01-13] MEDS: FUROSEMIDE 40 MG in SYRINGE 0 ML IV SCH ×2 (10:46→17:53)
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
[2019-01-13] MEDS: POLYETHYLENE (MIRALAX) 17 GM PACK PO SCH (11:19)
[2019-01-13] MEDS: DOCUSATE SODIUM 100 MG CAP PO SCH ×2 (11:19→21:28)
[2019-01-13] MEDS: MoRPHine SULFATE CR 15 MG TABCR PO SCH ×2 (11:19→21:19)
[2019-01-13] MEDS: TIOTROPIUM BROMIDE 5 PUFF/90 MCG INH INH SCH (12:20)
--- NOTE | 2019-01-13 14:49 | Pharmacy Report ---
Pharmacy Glycemic Short Note 2 - Date of Service January 13, 2019 - Glycemic Short BSG Results (Last 24 hours): 01/12/19 01/12/19 01/12/19 16:31 16:32 16:33 Glucose POC Glucose 344 H* 178 H 164 H 01/12/19 01/13/19 01/13/19 19:49 05:57 07:46 Glucose 178 H POC Glucose 164 H 184 H 01/13/19 01/13/19 11:57 11:58 Glucose POC Glucose 288 H 276 H OUTPATIENT ANTIDIABETIC REGIMEN: * None per patient. ASSESSMENT: 01/13/19: * Patient received a total of 99 units yesterday. * Patient has not had blood sugars within his goal range, so lantus scale was changed and CF:CR was tightened to 10:3 * Patient received 25 units of lantus this AM and 28 units of Novolog. The novolog was not administered until 1042, so the patient's blood sugar at lunch was falsely elevated at 276. Did not make any changes to patient's regimen regarding his lunch blood sugar. Will adjust accordingly if sugars continue to run high throughout the evening. * Patient is still receiving Solu-medrol 60mg IV Q12. 01/11/19: * Patient received total of 64 units of insulins; 30 units of which was basal and 34 units correctional + prandial. * Fasting BSG = 180; Lantus dosing increased to 20 units this AM; continue HS Lantus based on scale. * Post-prandial BSGs were high and > 200 yesterday. Therefore CF and CR with Novolog tightened based on weight and stress of 2. * Patient continues to be on Solu-medrol but dosing decreased to 60 mg IV q12h starting this evening. Expect steroids to continue to affect post-prandial BSG. PLAN FOR INPATIENT GLYCEMIC CONTROL: * Basal insulin: * Lantus SQ BID based on scale: - BSG less than 160: give 15 units - BSG 160 - 180: give 20 units - BSG greater than 180: give 25 units * Bolus insulin: tightened * NovoLog per scale ACHS or Q6hrs while NPO * Goal Range: Low 110 mg/dL - High 140 mg/dL * Correction Factor: 10 mg/dL/unit * Nutritional / Prandial insulin per carb ratio of 1 unit per 3 grams CHO consumed PLAN FOR DISCHARGE: * HbA1c = 6.6% on 01/08/19 indicates that patient is diabetic but very close to being in control. Recommend life-style modifications as first line therapy for diabetes management. Another option is possibly starting Metformin in addition to life-style changes.
[2019-01-13] MEDS: WARFARIN SOD 5 MG TAB PO SCH (16:00)
[2019-01-13] MEDS ORDERED: OXYCODONE HCL IR 5 MG TAB (IMMEDIATE RELEASE) PO PRN (18:08)
--- NOTE | 2019-01-13 21:53 | Hospitalist Progress Note ---
Date of Service January 13, 2019 Assessment & Plan (1) Acute respiratory failure with hypoxia: This is a 48-year-old male who presents with shortness of breath and found to be hypoxic. 1. Hypoxia. Patient presented with hypoxia, was 85% on room air. The patient is morbidly obese, not on any oxygen at home. Likely secondary to acute on chronic diastolic heart failure --Lasix 80 mg IV ordered--> transitioned to 40mg BID Spironolactone continued diuresing well, but still overloaded Nephrology consulted -- continue Solumedrol , nebs -- wean off o2 Possible recurrence of pulmonary embolism --D-dimer 4000s CT angiogram cannot be performed to lack of necessary IV line INR 2.1 Currently on Coumadin Monitor INR daily --LE Doppler: negative for DVTs 2. Shortness of breath, also could be possible pulmonary embolism because patient is supposed to be on Coumadin for history of pulmonary embolism, but it was held because of recent surgery and also gastritis. H --Management as noted above 3. Recent history of foreign body of appendix, status post surgery. Pathology was not significant. 4. History of hypertension, . He is on Toprol-XL and diuretics. Will monitor blood pressure. Last admission, his hydralazine and clonidine was stopped. --Continue blood pressure trend 5. History of anemia. --monitor CBC. 6. History of chronic obstructive pulmonary disease, ongoing tobacco abuse. Continue his nebs and oxygen as needed. May need 2-step at the time of discharge. -- (+) mild exacerbation SOlumedrol, Nebs 7. Tobacco use disorder. Needs counselling to quit. 8. Hypoventilation associated with obesity. May need to do ABG to see if he qualifies for any home Trilogy or BiPAP.Sleep study. 9. Morbid obesity. Needs constant lifestyle changes. 10. Benign prostatic hyperplasia. Continue his Flomax. -- patient reports retention at home Urology consulted 11. Diabetes, seems to be not on any medications at home. We will put him on diabetic diet. --Repeat A1c 6.6 12. Gastritis, he had hematemesis last admission. -- He is on Protonix b.i.d. and Carafate for 10 days. -- nausea with DOxycycline 13. Constipation. Continue his bowel regimen. 14. Chronic pain, continue his home pain medications. -- monitor respiratory status closely 15. Depression with anxiety. Continue his duloxetine. 16. Deep venous thrombosis prophylaxis, coumadin 17. Code status. Full code. Case discussed with patient and in detail, he is comfortable and agree with plan of care Subjective ff up for Acute CHF seen resting in bed, not in distress states breathing is about the same has chronic pain- "all over" no other symptoms Review of Systems Review of Systems: All systems reviewed & are unremarkable except as noted in HPI & below Physical Exam Physical Exam: General- oriented x 3, not in distress, speaks in sentences with no effort or accessory muscle use Eyes- anicteric Neck- no JVD Lungs- mild wheeze bilaterally, no rales/wheezes Heart- normal rate, regular rhythm; no murmurs Abdomen- normal bowel sounds, nondistended, soft, nontender Extremities- grade 2 leg edema-, no calf tenderness Neuro- alert, oriented x 3; no gross focal neurologic deficits Skin- warm & dry Results & Data Vital Signs (Past 12 Hours) Vital Signs Temp Pulse Resp BP Pulse Ox 01/13/19 14:59 36.6 C 93 H 20 114/68 92 Laboratory Results Laboratory Results - last 24 hr 01/13/19 01/13/19 01/13/19 05:57 05:57 07:46 PT 20.3 H INR 2.1 H Sodium 138 Potassium 4.4 Chloride 99 Carbon Dioxide 34 H Anion Gap 5.0 BUN 35 H Creatinine 1.39 Est Cr Clr Drug Dosing 118.0 Est GFR ( Amer) 69.0 Est GFR (Non-Af Amer) 59.5 BUN/Creatinine Ratio 25.1 H Glucose 178 H POC Glucose 184 H Calcium 9.3 01/13/19 01/13/19 01/13/19 11:57 11:58 16:23 PT INR Sodium Potassium Chloride Carbon Dioxide Anion Gap BUN Creatinine Est Cr Clr Drug Dosing Est GFR ( Amer) Est GFR (Non-Af Amer) BUN/Creatinine Ratio Glucose POC Glucose 288 H 276 H 174 H Calcium 01/13/19 20:10 PT INR Sodium Potassium Chloride Carbon Dioxide Anion Gap BUN Creatinine Est Cr Clr Drug Dosing Est GFR ( Amer) Est GFR (Non-Af Amer) BUN/Creatinine Ratio Glucose POC Glucose 130 H Calcium
[2019-01-14] MEDS: OXYCODONE HCL IR 5 MG TAB (IMMEDIATE RELEASE) PO PRN ×6 (00:12→22:31)
[2019-01-14] MEDS: TRAMADOL HCL 50 MG TABLET PO PRN ×6 (02:55→23:44)
[2019-01-14] MEDS: methylPREDNISolone 60 MG in SYRINGE 0 ML IV SCH ×2 (05:28→17:56)
[2019-01-14 05:47] LABS: INR 1.8 (0.9-1.1); Prothrombin Time 17.7 Seconds (9.0-12.0)
[2019-01-14 05:49] LABS: BUN Creatinine Ratio 25.9 (10-20); Calcium 9.2 mg/dl (8.5-10.1); Creatinine Clr Calc Pharmacy 112.3 ml/min; Est GFR (Non-African American) 56.1; Potassium 4.5 mmol/L (3.5-5.1)
[2019-01-14] MEDS: IPRATROPIUM BROMIDE NEB SOLN 0.02% 2.5 ML VIAL INH SCH ×3 (07:00→14:29)
[2019-01-14] MEDS: LEVALBUTEROL 1.25MG/0.5ML NEB INH SCH ×3 (07:00→14:30)
[2019-01-14] MEDS: ISOSORBIDE DINITRATE 10 MG TAB PO SCH ×2 (07:47→12:32)
[2019-01-14] MEDS: SUCRALFATE 1 GM TAB PO SCH ×4 (07:48→21:08)
[2019-01-14] MEDS: TAMSULOSIN HCL 0.4 MG CAP PO SCH (07:48)
[2019-01-14] MEDS: SPIRONOLACTONE 25 MG TAB PO SCH ×2 (07:48→17:57)
[2019-01-14] MEDS: DULOXETINE HCL 60 MG CAP PO SCH (07:48)
[2019-01-14] MEDS: ASPIRIN 81 MG ECTAB PO SCH (07:48)
[2019-01-14] MEDS: FLUTICASONE PROPIONATE NA SPR 16 GM BTL SCH (07:48)
[2019-01-14] MEDS: POLYETHYLENE (MIRALAX) 17 GM PACK PO SCH (07:49)
[2019-01-14] MEDS: MAGNESIUM OXIDE 400 MG TAB PO SCH ×2 (07:49→21:08)
[2019-01-14] MEDS: POTASSIUM CHLORIDE 10 MEQ TABCR PO SCH (07:49)
[2019-01-14] MEDS: FUROSEMIDE 40 MG in SYRINGE 0 ML IV SCH ×2 (07:49→08:52)
[2019-01-14] MEDS: GABAPENTIN 600 MG TAB PO SCH ×3 (07:50→21:09)
[2019-01-14] MEDS: METOPROLOL SUCC 25MG EXT REL TAB PO SCH ×2 (07:50→21:09)
[2019-01-14] MEDS: PANTOprazole 40 MG TAB PO SCH ×2 (07:50→21:09)
[2019-01-14] MEDS: TIOTROPIUM BROMIDE 5 PUFF/90 MCG INH INH SCH (07:50)
[2019-01-14] MEDS: NICOTINE 7 MG/24 HR TDSY TD SCH (07:50)
[2019-01-14] MEDS: MoRPHine SULFATE CR 15 MG TABCR PO SCH ×2 (07:50→21:21)
[2019-01-14] MEDS: NYSTATIN POWDER 15GM BTL EXT SCH ×2 (07:58→21:18)
[2019-01-14] MEDS: INCRUSE ELLIPTA~ORDER AWAITING ACTION SCH ×3 (07:58→23:39)
[2019-01-14] MEDS: LIDOCAINE 5% 1 PATCH TD SCH (07:58)
[2019-01-14] MEDS: BISMUTH SUBSALICYLATE SUSP PO SCH ×4 (07:59→21:06)
[2019-01-14] MEDS: INSULIN ASPART 100 UNITS/ML 3 ML PEN SC SCH ×4 (08:43→21:16)
[2019-01-14] MEDS: INSULIN GLARGINE SOLOSTAR 100 UNITS/ML 3 ML PEN SC SCH ×2 (08:43→21:13)
--- NOTE | 2019-01-14 08:51 | Hospitalist Progress Note ---
Date of Service January 14, 2019 Assessment & Plan (1) Acute respiratory failure with hypoxia: This is a 48-year-old male who presents with shortness of breath and found to be hypoxic. 1. Hypoxia. Patient presented with hypoxia, was 85% on room air. The patient is morbidly obese, not on any oxygen at home. Likely secondary to acute on chronic diastolic heart failure --Lasix 80 mg IV ordered--> transitioned to 40mg BID Spironolactone continued Continues to diurese but still has significant overload creatinine slightly up today at 1.4 Continue to monitor Nephrology consulted -- continue Solumedrol , nebs -- wean off o2 Possible recurrence of pulmonary embolism --D-dimer 4000s CT angiogram cannot be performed to lack of necessary IV line INR 1.8 Currently on Coumadin Monitor INR daily --LE Doppler: negative for DVTs 2. Shortness of breath, also could be possible pulmonary embolism because patient is supposed to be on Coumadin for history of pulmonary embolism, but it was held because of recent surgery and also gastritis. H --Management as noted above --Now on room air 94% 3. Recent history of foreign body of appendix, status post surgery. Pathology was not significant. 4. History of hypertension, . He is on Toprol-XL and diuretics. Will monitor blood pressure. Last admission, his hydralazine and clonidine was stopped. --Blood pressure on the low side today, monitor 5. History of anemia. --Stable around 10 6. History of chronic obstructive pulmonary disease, ongoing tobacco abuse. Continue his nebs and oxygen as needed. May need 2-step at the time of discharge. -- (+) mild exacerbation SOlumedrol, Nebs 7. Tobacco use disorder. Needs counselling to quit. 8. Hypoventilation associated with obesity. --Outpatient sleep study Nocturnal pulse ox when respiratory status improved 9. Morbid obesity. Needs constant lifestyle changes. 10. Benign prostatic hyperplasia. Continue his Flomax. -- patient reports retention at home Urology consulted Trial of voiding prior to discharge 11. Diabetes, seems to be not on any medications at home. We will put him on diabetic diet. --Repeat A1c 6.6 12. Gastritis, he had hematemesis last admission. -- He is on Protonix b.i.d. and Carafate for 10 days. --Positive H. pylori on last EGD Reported nausea with doxycycline Discussed with GI, recommend amoxicillin 1000 twice a day and Flagyl 500 twice a day monitor, PPI twice a day 13. Constipation. Continue his bowel regimen. 14. Chronic pain, continue his home pain medications. --Patient reports increased pain in his lower back today, severe, states he twisted his back after he got up from bed will give IV Dilaudid for breakthrough pain today We will consult pain management Discussed case with patient in detail, patient agreeable understanding the plan of care 15. Depression with anxiety. Continue his duloxetine. 16. Deep venous thrombosis prophylaxis, coumadin 17. Code status. Full code. Subjective Acute CHF exacerbation Seen resting in bed, nondistresse States he feels the same as yesterday Dyspnea is slightly improved compared to yesterday Reports "pain all over", mostly his back Denies other symptoms Review of Systems Review of Systems: All systems reviewed & are unremarkable except as noted in HPI & below Physical Exam Physical Exam: General- oriented x 3, not in distress, speaks in sentences with no effort or accessory muscle use Eyes- anicteric Neck- no JVD Lungs-mild wheeze bilaterally, no crackles or wheezing Heart- normal rate, regular rhythm; no murmurs Abdomen- normal bowel sounds, nondistended, soft, nontender Extremities-grade 2 bilateral leg edema, no calf tenderness Neuro- alert, oriented x 3; no gross focal neurologic deficits Skin- warm & dry Results & Data Vital Signs (Past 12 Hours) Vital Signs Temp Pulse Resp BP Pulse Ox 01/14/19 06:59 36.7 C 69 20 130/70 99 01/13/19 22:26 36.9 C 79 19 113/67 90 Laboratory Results Laboratory Results - last 24 hr 01/13/19 01/14/19 01/14/19 20:10 05:09 05:09 PT 17.7 H INR 1.8 H Sodium 134 L Potassium 4.5 Chloride 98 Carbon Dioxide 34 H Anion Gap 2.0 L BUN 38 H Creatinine 1.46 H Est Cr Clr Drug Dosing 112.3 Est GFR ( Amer) 65.0 Est GFR (Non-Af Amer) 56.1 BUN/Creatinine Ratio 25.9 H Glucose 171 H POC Glucose 130 H Calcium 9.2 01/14/19 01/14/19 01/14/19 07:28 11:45 16:33 PT INR Sodium Potassium Chloride Carbon Dioxide Anion Gap BUN Creatinine Est Cr Clr Drug Dosing Est GFR ( Amer) Est GFR (Non-Af Amer) BUN/Creatinine Ratio Glucose POC Glucose 153 H 197 H 83 Calcium
[2019-01-14] MEDS: DOCUSATE SODIUM 100 MG CAP PO SCH ×2 (11:07→21:11)
[2019-01-14] MEDS: CYCLOBENZAPRINE HCL 10 MG TAB PO PRN ×2 (12:32→21:10)
[2019-01-14] MEDS: ONDANSETRON INJ 2 MG/ML 2 ML VIAL IV PRN (13:50)
[2019-01-14] MEDS ORDERED: HYDROmorphone INJ 1 MG/ML SYRINGE IV STA (14:28)
[2019-01-14] MEDS: WARFARIN SOD 5 MG TAB PO SCH (15:39)
--- NOTE | 2019-01-14 16:01 | Nephrology Progress Note ---
Date of Service January 14, 2019 Assessment & Plan (1) MAHAMED (acute kidney injury): Patient with acute kidney injury likely in setting of diuresis. Creatinine at 1.46 from baseline of 1.1-1.2. Patient recently admitted with acute kidney injury with creatinine peak at 2.8 in setting of diuresis. He still has hypervolemia. Agree with continuing diuresis. Monitor with daily BMP. Patient needs strict input output. Continue fluid restriction to 1.8 L daily (2) Acute respiratory failure with hypoxia: Due to volume overload. Reduce IV Lasix to 40 mg daily. Patient will likely need to be discharged on torsemide as he did not respond to p.o. Lasix. Monitor daily weight and low-salt diet. (3) Hypokalemia: In setting of diuresis. k 4.5 today. Stop kcl supplements. No need to restrict potassium in his diet. Subjective Patient seen in f/u for MAHAMED and volume overload. His breathing is slightly better. Still leg swelling. Fluid restriction now at 1800 and he says it works for him. Cr up trending Review of Systems Review of Systems: All systems reviewed & are unremarkable except as noted in HPI & below Physical Exam Physical Exam: General exam: Obese male, Appears comfortable, no acute distress HEENT: Pupils are equal and reactive to light Neck: No JVD, neck is supple trachea is midline Respiratory system: reduced breath sounds bilaterally. Gastrointestinal: Abdomen is soft, non distended, non tender, bowel sounds are present CVS: Regular rate and rhythm. No murmurs, rubs or gallops Musculoskeletal: No joint or muscle tenderness Extremities: Non tender, 1+ edema, peripheral pulses are present Neuro: Oriented, no tremors, no focal neurological deficits Skin: No rashes Results & Data Vital Signs (Past 12 Hours) Vital Signs Temp Pulse Resp BP BP Pulse Ox 01/14/19 15:13 36.6 C 85 18 106/58 L 94 01/14/19 11:25 36.9 C 71 18 104/55 L 98 01/14/19 06:59 36.7 C 69 20 130/70 99 Laboratory Results Laboratory Results - last 24 hr 01/13/19 01/13/19 01/14/19 16:23 20:10 05:09 PT 17.7 H INR 1.8 H Sodium Potassium Chloride Carbon Dioxide Anion Gap BUN Creatinine Est Cr Clr Drug Dosing Est GFR ( Amer) Est GFR (Non-Af Amer) BUN/Creatinine Ratio Glucose POC Glucose 174 H 130 H Calcium 01/14/19 01/14/19 01/14/19 05:09 07:28 11:45 PT INR Sodium 134 L Potassium 4.5 Chloride 98 Carbon Dioxide 34 H Anion Gap 2.0 L BUN 38 H Creatinine 1.46 H Est Cr Clr Drug Dosing 112.3 Est GFR ( Amer) 65.0 Est GFR (Non-Af Amer) 56.1 BUN/Creatinine Ratio 25.9 H Glucose 171 H POC Glucose 153 H 197 H Calcium 9.2
[2019-01-14] MEDS ORDERED: HYDROmorphone INJ 1 MG/ML SYRINGE IV PRN (16:39)
[2019-01-14] MEDS ORDERED: WARFARIN SOD 5 MG TAB PO ONE (17:00)
[2019-01-14 17:42] LABS: INR 1.5 (0.9-1.1); Prothrombin Time 15.3 Seconds (9.0-12.0)
[2019-01-14] MEDS: metroNIDAZOLE 500 MG TAB PO SCH (21:07)
[2019-01-14] MEDS: AMOXICILLIN 500 MG CAP PO SCH (21:08)
[2019-01-14] MEDS: LORazepam 1 MG TAB PO PRN (21:21)
[2019-01-15] MEDS: OXYCODONE HCL IR 5 MG TAB (IMMEDIATE RELEASE) PO PRN ×6 (02:20→22:59)
[2019-01-15] MEDS: TRAMADOL HCL 50 MG TABLET PO PRN ×5 (04:16→20:30)
[2019-01-15] MEDS: ONDANSETRON INJ 2 MG/ML 2 ML VIAL IV PRN ×3 (06:20→18:09)
[2019-01-15] MEDS: methylPREDNISolone 60 MG in SYRINGE 0 ML IV SCH (06:22)
[2019-01-15 07:07] LABS: BUN Creatinine Ratio 29.5 (10-20); Calcium 9.2 mg/dl (8.5-10.1); Creatinine Clr Calc Pharmacy 134.4 ml/min; Est GFR (African American) 80.8; Est GFR (Non-African American) 69.7; Potassium 4.7 mmol/L (3.5-5.1)
[2019-01-15] MEDS: ISOSORBIDE DINITRATE 10 MG TAB PO SCH ×2 (07:14→12:53)
[2019-01-15] MEDS: AMOXICILLIN 500 MG CAP PO SCH ×2 (08:28→20:46)
[2019-01-15] MEDS: SPIRONOLACTONE 25 MG TAB PO SCH ×2 (08:28→18:04)
[2019-01-15] MEDS: DULOXETINE HCL 60 MG CAP PO SCH (08:29)
[2019-01-15] MEDS: SUCRALFATE 1 GM TAB PO SCH ×4 (08:29→20:45)
[2019-01-15] MEDS: TAMSULOSIN HCL 0.4 MG CAP PO SCH (08:29)
[2019-01-15] MEDS: metroNIDAZOLE 500 MG TAB PO SCH ×2 (08:29→20:45)
[2019-01-15] MEDS: ASPIRIN 81 MG ECTAB PO SCH (08:29)
[2019-01-15] MEDS: FLUTICASONE PROPIONATE NA SPR 16 GM BTL SCH (08:30)
[2019-01-15] MEDS: POLYETHYLENE (MIRALAX) 17 GM PACK PO SCH (08:30)
[2019-01-15] MEDS: FUROSEMIDE 40 MG in SYRINGE 0 ML IV SCH (08:30)
[2019-01-15] MEDS: MAGNESIUM OXIDE 400 MG TAB PO SCH ×2 (08:30→20:46)
[2019-01-15] MEDS: LIDOCAINE 5% 1 PATCH TD SCH (08:30)
[2019-01-15] MEDS: GABAPENTIN 600 MG TAB PO SCH ×3 (08:31→20:45)
[2019-01-15] MEDS: MoRPHine SULFATE CR 15 MG TABCR PO SCH ×2 (08:31→20:46)
[2019-01-15] MEDS: NICOTINE 7 MG/24 HR TDSY TD SCH (08:31)
[2019-01-15] MEDS: TIOTROPIUM BROMIDE 5 PUFF/90 MCG INH INH SCH (08:31)
[2019-01-15] MEDS: PANTOprazole 40 MG TAB PO SCH ×2 (08:31→20:46)
[2019-01-15] MEDS: METOPROLOL SUCC 25MG EXT REL TAB PO SCH ×2 (08:32→20:46)
[2019-01-15] MEDS: INCRUSE ELLIPTA~ORDER AWAITING ACTION SCH ×2 (08:38→15:50)
[2019-01-15] MEDS: INSULIN GLARGINE SOLOSTAR 100 UNITS/ML 3 ML PEN SC SCH ×2 (08:45→20:46)
[2019-01-15] MEDS: INSULIN ASPART 100 UNITS/ML 3 ML PEN SC SCH ×4 (08:46→20:47)
[2019-01-15] MEDS: NYSTATIN POWDER 15GM BTL EXT SCH ×2 (08:48→20:45)
[2019-01-15] MEDS: BISMUTH SUBSALICYLATE SUSP PO SCH ×4 (08:53→20:45)
[2019-01-15] MEDS: DOCUSATE SODIUM 100 MG CAP PO SCH ×2 (11:03→20:45)
[2019-01-15] MEDS ORDERED: HYDROmorphone INJ 1 MG/ML SYRINGE IV STA (11:19)
--- NOTE | 2019-01-15 15:26 | Pharmacy Report ---
Pharmacy Glycemic Short Note 2 - Date of Service January 15, 2019 - Glycemic Short BSG Results (Last 24 hours): 01/14/19 01/14/19 01/15/19 16:33 20:05 06:18 Glucose 194 H POC Glucose 83 237 H 01/15/19 01/15/19 01/15/19 08:04 11:35 11:36 Glucose POC Glucose 152 H 352 H* 287 H OUTPATIENT ANTIDIABETIC REGIMEN: * None per patient. ASSESSMENT: 01/15/19: * Patient continues to require large doses of insulin due to solu medrol 60 mg IV q12h. Per conversation with provider, the patient will transition to once daily prednisone on 01/16 AM. * Fasting BSG is near goal. Continue current Lantus scale. May need to decrease tomorrow. * Post prandial BSGs are fluctuating with majority of values above goal. Lunch BSG severely elevated today, 352 mg/dL. RN reported that patient has been snacking between meals. Because of this, I did not react to elevation. I anticipate improvement over the next 24 hours as steroid dose is decreased. I will back off Novolog CF/CR starting tomorrow AM. 01/13/19: * Patient received a total of 99 units yesterday. * Patient has not had blood sugars within his goal range, so lantus scale was changed and CF:CR was tightened to 10:3 * Patient received 25 units of lantus this AM and 28 units of Novolog. The novolog was not administered until 1042, so the patient's blood sugar at lunch was falsely elevated at 276. Did not make any changes to patient's regimen regarding his lunch blood sugar. Will adjust accordingly if sugars continue to run high throughout the evening. * Patient is still receiving Solu-medrol 60mg IV Q12. 01/11/19: * Patient received total of 64 units of insulins; 30 units of which was basal and 34 units correctional + prandial. * Fasting BSG = 180; Lantus dosing increased to 20 units this AM; continue HS Lantus based on scale. * Post-prandial BSGs were high and > 200 yesterday. Therefore CF and CR with Novolog tightened based on weight and stress of 2. * Patient continues to be on Solu-medrol but dosing decreased to 60 mg IV q12h starting this evening. Expect steroids to continue to affect post-prandial BSG. PLAN FOR INPATIENT GLYCEMIC CONTROL: * Basal insulin: * Lantus SQ BID based on scale: - BSG less than 140: give 15 units - BSG 140 - 180: give 20 units - BSG greater than 180: give 25 units * Bolus insulin: * NovoLog per scale ACHS or Q6hrs while NPO * Goal Range: Low 110 mg/dL - High 140 mg/dL * Correction Factor: 10 mg/dL/unit * Nutritional / Prandial insulin per carb ratio of 1 unit per 3 grams CHO consumed Starting 01/16: * Correction Factor: 12 mg/dL/unit * Nutritional / Prandial insulin per carb ratio of 1 unit per 4 grams CHO consumed PLAN FOR DISCHARGE: * HbA1c = 6.6% on 01/08/19 indicates that patient is diabetic but very close to being in control. Recommend life-style modifications as first line therapy for diabetes management. Another option is possibly starting Metformin in addition to life-style changes.
[2019-01-15] MEDS: WARFARIN SOD 10 MG TAB PO SCH (15:51)
[2019-01-15] MEDS: LORazepam 1 MG TAB PO PRN (15:52)
--- NOTE | 2019-01-15 15:56 | Hospitalist Progress Note ---
Date of Service January 15, 2019 Assessment & Plan (1) Acute respiratory failure with hypoxia: This is a 48-year-old male who presents with shortness of breath and found to be hypoxic. 1. Hypoxia. Patient presented with hypoxia, was 85% on room air. The patient is morbidly obese, not on any oxygen at home. Likely secondary to acute on chronic diastolic heart failure --Lasix 80 mg IV ordered--> transitioned to 40mg IV BID--> now 40mg IV daily Spironolactone continued Continues to diurese creatinine back to baseline again today Continue to monitor Nephrology consulted -- wean off o2 Possible recurrence of pulmonary embolism --D-dimer 4000s CT angiogram cannot be performed to lack of necessary IV line INR 1.5 coumadin 10mg po daily, add heparin drip today usually on coumadin 10mg mon and fri, 5mg other days Monitor INR daily --LE Doppler: negative for DVTs 2. Shortness of breath, also could be possible pulmonary embolism because patient is supposed to be on Coumadin for history of pulmonary embolism, but it was held because of recent surgery and also gastritis. -- also has mild COPD exacerbation -- transition from Solumedrol to Prednisone PRN nebs --off O2 supplementation 3. Recent history of foreign body of appendix, status post surgery. Pathology was not significant. 4. History of hypertension, . He is on Toprol-XL and diuretics. Will monitor blood pressure. Last admission, his hydralazine and clonidine was stopped. --Blood pressure on the lower side monitor 5. History of anemia. --Stable around 10 6. History of chronic obstructive pulmonary disease, ongoing tobacco abuse. Continue his nebs and oxygen as needed. May need 2-step at the time of discharge. -- (+) mild exacerbation -- wheezing resolved SOlumedrol--> transition to prednisone, Nebs 7. Tobacco use disorder. Needs counselling to quit. 8. Hypoventilation associated with obesity. -- Outpatient sleep study Nocturnal pulse ox when respiratory status stable 9. Morbid obesity. Needs constant lifestyle changes. 10. Benign prostatic hyperplasia. Continue his Flomax. -- patient reports retention at home Urology consulted Trial of voiding prior to discharge 11. Diabetes, seems to be not on any medications at home. We will put him on diabetic diet. --Repeat A1c 6.6 12. Gastritis, he had hematemesis last admission. -- He is on Protonix b.i.d. and Carafate for 10 days. --Positive H. pylori on last EGD Reported nausea with doxycycline Discussed with GI Dr. Lopez over the phone, recommend amoxicillin 1000 twice a day and Flagyl 500 twice a day monitor, PPI twice a day 13. Constipation. Continue his bowel regimen. 14. Chronic pain, continue his home pain medications. --Patient reports increased pain in his lower back will give one dose of IV Dilaudid for breakthrough pain today We will consult pain management 15. Depression with anxiety. Continue his duloxetine. 16. Deep venous thrombosis prophylaxis, coumadin 17. Code status. Full code. Discussed case with patient in detail, patient agreeable understanding the plan of care Subjective ff up for acute on chronic CHF seen resting in bed, not in distress states breathing continues to improve no cough still reports pain, mostly lower back no other symptoms Review of Systems Review of Systems: All systems reviewed & are unremarkable except as noted in HPI & below Physical Exam Physical Exam: General- oriented x 3, not in distress, speaks in sentences with no effort or accessory muscle use Eyes- anicteric Neck- no JVD Lungs- mild rales at the bases, no wheezing Heart- normal rate, regular rhythm; no murmurs Abdomen- normal bowel sounds, nondistended, soft, nontender Extremities-grade 1-2 lower leg edema, no calf tenderness Neuro- alert, oriented x 3; no gross focal neurologic deficits Skin- warm & dry Results & Data Vital Signs (Past 12 Hours) Vital Signs Temp Pulse Pulse Resp BP BP Pulse Ox 01/15/19 15:22 36.7 C 74 20 149/78 H 93 01/15/19 07:15 36.7 C 61 16 103/64 95 Laboratory Results Laboratory Results - last 24 hr 01/14/19 01/14/19 01/14/19 16:33 17:00 20:05 PT 15.3 H INR 1.5 H Sodium Potassium Chloride Carbon Dioxide Anion Gap BUN Creatinine Est Cr Clr Drug Dosing Est GFR ( Amer) Est GFR (Non-Af Amer) BUN/Creatinine Ratio Glucose POC Glucose 83 237 H Calcium 01/15/19 01/15/19 01/15/19 06:18 08:04 11:35 PT INR Sodium 134 L Potassium 4.7 Chloride 101 Carbon Dioxide 30 Anion Gap 3.0 BUN 36 H Creatinine 1.22 Est Cr Clr Drug Dosing 134.4 Est GFR ( Amer) 80.8 Est GFR (Non-Af Amer) 69.7 BUN/Creatinine Ratio 29.5 H Glucose 194 H POC Glucose 152 H 352 H* Calcium 9.2 01/15/19 11:36 PT INR Sodium Potassium Chloride Carbon Dioxide Anion Gap BUN Creatinine Est Cr Clr Drug Dosing Est GFR ( Amer) Est GFR (Non-Af Amer) BUN/Creatinine Ratio Glucose POC Glucose 287 H Calcium
[2019-01-15] MEDS ORDERED: ENOXAPARIN INJ 40 MG/0.4 ML SYR SQ ONE (16:03)
[2019-01-15] MEDS ORDERED: Heparin IV Standard *NO* Bolus IV SCH (16:08)
[2019-01-15] MEDS: Heparin Adult STANDARD Wt-Based Dextrose 5% 25,000 units/500 mL IV SCH (18:18)
--- NOTE | 2019-01-15 19:33 | Nephrology Progress Note ---
Date of Service January 15, 2019 Assessment & Plan (1) MAHAMED (acute kidney injury): Patient with acute kidney injury likely in setting of diuresis. Creatinine at 1.22 from baseline of 1.1-1.2. Patient recently admitted with acute kidney injury with creatinine peak at 2.8 in setting of diuresis. He still has hypervolemia. Agree with continuing diuresis. Monitor with daily BMP. Patient needs strict input output. Continue fluid restriction to 1.8 L daily (2) Acute respiratory failure with hypoxia: Due to volume overload. Continue IV Lasix to 40 mg daily. Patient will likely need to be discharged on torsemide as he did not respond to p.o. Lasix. Monitor daily weight and low-salt diet. (3) Hypokalemia: In setting of diuresis. k 4.7 today. Off kcl supplements. No need to restrict potassium in his diet. Subjective Seen in f/u for MAHAMED and volume overload. He reports mild improvement in breathing. Legs still swollen. he has back pain. Quite sedentary. He is requesting more pain meds. Review of Systems Review of Systems: All systems reviewed & are unremarkable except as noted in HPI & below Physical Exam Physical Exam: General exam: Obese male, Appears comfortable, no acute distress HEENT: Pupils are equal and reactive to light Neck: No JVD, neck is supple trachea is midline Respiratory system: Reduced breath sounds bilaterally. Gastrointestinal: Abdomen is soft, non distended, non tender, bowel sounds are present CVS: Regular rate and rhythm. No murmurs, rubs or gallops Musculoskeletal: No joint or muscle tenderness Extremities: Non tender, 1+ edema, peripheral pulses are present Neuro: Oriented, no tremors, no focal neurological deficits Skin: No rashes Results & Data Vital Signs (Past 12 Hours) Vital Signs Temp Pulse Resp BP Pulse Ox 01/15/19 15:22 36.7 C 74 20 149/78 H 93 Laboratory Results Laboratory Results - last 24 hr 01/14/19 01/15/19 01/15/19 20:05 06:18 08:04 Sodium 134 L Potassium 4.7 Chloride 101 Carbon Dioxide 30 Anion Gap 3.0 BUN 36 H Creatinine 1.22 Est Cr Clr Drug Dosing 134.4 Est GFR ( Amer) 80.8 Est GFR (Non-Af Amer) 69.7 BUN/Creatinine Ratio 29.5 H Glucose 194 H POC Glucose 237 H 152 H Calcium 9.2 01/15/19 01/15/19 01/15/19 11:35 11:36 16:31 Sodium Potassium Chloride Carbon Dioxide Anion Gap BUN Creatinine Est Cr Clr Drug Dosing Est GFR ( Amer) Est GFR (Non-Af Amer) BUN/Creatinine Ratio Glucose POC Glucose 352 H* 287 H 69 L* Calcium 01/15/19 01/15/19 16:32 16:56 Sodium Potassium Chloride Carbon Dioxide Anion Gap BUN Creatinine Est Cr Clr Drug Dosing Est GFR ( Amer) Est GFR (Non-Af Amer) BUN/Creatinine Ratio Glucose POC Glucose 69 L* 88 Calcium
[2019-01-15] MEDS: CYCLOBENZAPRINE HCL 10 MG TAB PO PRN (20:45)
[2019-01-16] MEDS: TRAMADOL HCL 50 MG TABLET PO PRN ×2 (00:32→05:16)
[2019-01-16] MEDS: INCRUSE ELLIPTA~ORDER AWAITING ACTION SCH ×4 (00:33→23:21)
[2019-01-16] MEDS: LORazepam 1 MG TAB PO PRN (00:37)
[2019-01-16 00:42] LABS: Partial Thromboplastin Ratio 2.9
[2019-01-16 00:56] LABS: Partial Thromboplastin Time 79.7 Seconds (21.0-31.0)
[2019-01-16] MEDS: OXYCODONE HCL IR 5 MG TAB (IMMEDIATE RELEASE) PO PRN ×5 (03:26→20:12)
[2019-01-16] MEDS: ISOSORBIDE DINITRATE 10 MG TAB PO SCH ×2 (05:18→12:03)
[2019-01-16] MEDS: Heparin Adult STANDARD Wt-Based Dextrose 5% 25,000 units/500 mL IV SCH (05:22)
[2019-01-16 07:40] LABS: INR 2.2 (0.9-1.1); Partial Thromboplastin Ratio 3.6
[2019-01-16 07:48] LABS: Partial Thromboplastin Time 97.6 Seconds (21.0-31.0)
[2019-01-16 07:55] LABS: BUN Creatinine Ratio 25.8 (10-20); Calcium 9.4 mg/dl (8.5-10.1); Creatinine Clr Calc Pharmacy 125.4 ml/min; Est GFR (African American) 75.5; Est GFR (Non-African American) 65.1; Potassium 4.2 mmol/L (3.5-5.1)
[2019-01-16] MEDS: DULOXETINE HCL 60 MG CAP PO SCH (08:33)
[2019-01-16] MEDS: SPIRONOLACTONE 25 MG TAB PO SCH ×2 (08:33→17:57)
[2019-01-16] MEDS: AMOXICILLIN 500 MG CAP PO SCH ×2 (08:33→21:35)
[2019-01-16] MEDS: SUCRALFATE 1 GM TAB PO SCH ×4 (08:33→21:35)
[2019-01-16] MEDS: DOCUSATE SODIUM 100 MG CAP PO SCH ×2 (08:33→21:38)
[2019-01-16] MEDS: ASPIRIN 81 MG ECTAB PO SCH (08:34)
[2019-01-16] MEDS: FLUTICASONE PROPIONATE NA SPR 16 GM BTL SCH (08:34)
[2019-01-16] MEDS: FUROSEMIDE 40 MG in SYRINGE 0 ML IV SCH (08:34)
[2019-01-16] MEDS: metroNIDAZOLE 500 MG TAB PO SCH ×2 (08:34→21:35)
[2019-01-16] MEDS: TAMSULOSIN HCL 0.4 MG CAP PO SCH (08:34)
[2019-01-16] MEDS: GABAPENTIN 600 MG TAB PO SCH ×3 (08:35→21:35)
[2019-01-16] MEDS: NICOTINE 7 MG/24 HR TDSY TD SCH (08:35)
[2019-01-16] MEDS: POLYETHYLENE (MIRALAX) 17 GM PACK PO SCH (08:35)
[2019-01-16] MEDS: MAGNESIUM OXIDE 400 MG TAB PO SCH ×2 (08:35→21:35)
[2019-01-16] MEDS: MoRPHine SULFATE CR 15 MG TABCR PO SCH ×2 (08:35→20:12)
[2019-01-16] MEDS: LIDOCAINE 5% 1 PATCH TD SCH (08:35)
[2019-01-16] MEDS: predniSONE 20 MG TAB PO SCH (08:36)
[2019-01-16] MEDS: PANTOprazole 40 MG TAB PO SCH ×2 (08:36→21:37)
[2019-01-16] MEDS: TIOTROPIUM BROMIDE 5 PUFF/90 MCG INH INH SCH (08:36)
[2019-01-16] MEDS: METOPROLOL SUCC 25MG EXT REL TAB PO SCH ×2 (08:37→21:37)
[2019-01-16] MEDS ORDERED: INSULIN GLARGINE SOLOSTAR 100 UNITS/ML 3 ML PEN SC STA (08:37)
[2019-01-16] MEDS: ONDANSETRON INJ 2 MG/ML 2 ML VIAL IV PRN ×2 (08:38→16:30)
[2019-01-16] MEDS: INSULIN ASPART 100 UNITS/ML 3 ML PEN SC SCH ×4 (08:49→21:35)
[2019-01-16] MEDS: NYSTATIN POWDER 15GM BTL EXT SCH ×2 (08:50→21:38)
[2019-01-16] MEDS: BISMUTH SUBSALICYLATE SUSP PO SCH ×4 (08:50→21:38)
[2019-01-16] MEDS ORDERED: ENOXAPARIN INJ 40 MG/0.4 ML SYR SQ SCH (09:00)
--- NOTE | 2019-01-16 09:22 | Nephrology Progress Note ---
Date of Service January 16, 2019 Assessment & Plan (1) MAHAMED (acute kidney injury): Patient with acute kidney injury likely in setting of diuresis. Creatinine at 1.29 from baseline of 1.1-1.2. Patient recently admitted with acute kidney injury with creatinine peak at 2.8 in setting of diuresis. He still has hypervolemia. Agree with continuing diuresis. Monitor with daily BMP. Patient needs strict input output. Continue fluid restriction to 1.8 L daily (2) Acute respiratory failure with hypoxia: Due to volume overload. Continue IV Lasix to 40 mg daily. Patient will likely need to be discharged on torsemide as he did not respond to p.o. Lasix. Monitor daily weight and low-salt diet. (3) Hypokalemia: In setting of diuresis. k 4.2 today. Off kcl supplements. No need to restrict potassium in his diet. Subjective Patient seen in follow-up for acute kidney injury and volume overload. He reports slight improvement in breathing. He is complaining of back pain and requesting Dilaudid. He is here to be seen by pain medicine. No vomiting or diarrhea. He was net -2 L yesterday. Creatinine stable at 1.29. Review of Systems Review of Systems: All systems reviewed & are unremarkable except as noted in HPI & below Physical Exam Physical Exam: General exam: Morbidly obese male, appears comfortable, no acute distress HEENT: Pupils are equal and reactive to light Neck: No JVD, neck is supple trachea is midline Respiratory system: Clear breath sounds bilaterally. Gastrointestinal: Abdomen is soft, non distended, non tender, bowel sounds are present CVS: Regular rate and rhythm. No murmurs, rubs or gallops Musculoskeletal: No joint or muscle tenderness Extremities: Non tender, 1+ edema, peripheral pulses are present Neuro: Oriented, no tremors, no focal neurological deficits Skin: No rashes Results & Data Vital Signs (Past 12 Hours) Vital Signs Temp Pulse Resp BP Pulse Ox 01/16/19 07:27 36.8 C 83 19 122/60 96 Laboratory Results Laboratory Results - last 24 hr 01/15/19 01/15/19 01/15/19 11:35 11:36 16:31 PT INR APTT PTT Ratio Sodium Potassium Chloride Carbon Dioxide Anion Gap BUN Creatinine Est Cr Clr Drug Dosing Est GFR ( Amer) Est GFR (Non-Af Amer) BUN/Creatinine Ratio Glucose POC Glucose 352 H* 287 H 69 L* Calcium 01/15/19 01/15/19 01/15/19 16:32 16:56 19:58 PT INR APTT PTT Ratio Sodium Potassium Chloride Carbon Dioxide Anion Gap BUN Creatinine Est Cr Clr Drug Dosing Est GFR ( Amer) Est GFR (Non-Af Amer) BUN/Creatinine Ratio Glucose POC Glucose 69 L* 88 143 H Calcium 01/16/19 01/16/19 01/16/19 00:12 07:04 07:04 PT 21.0 H INR 2.2 H APTT 79.7 H* 97.6 H* PTT Ratio 2.9 3.6 Sodium 138 Potassium 4.2 Chloride 102 Carbon Dioxide 29 Anion Gap 7.0 BUN 33 H Creatinine 1.29 Est Cr Clr Drug Dosing 125.4 Est GFR ( Amer) 75.5 Est GFR (Non-Af Amer) 65.1 BUN/Creatinine Ratio 25.8 H Glucose 135 H POC Glucose Calcium 9.4 01/16/19 07:38 PT INR APTT PTT Ratio Sodium Potassium Chloride Carbon Dioxide Anion Gap BUN Creatinine Est Cr Clr Drug Dosing Est GFR ( Amer) Est GFR (Non-Af Amer) BUN/Creatinine Ratio Glucose POC Glucose 122 H Calcium
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
[2019-01-16] MEDS: HYDROmorphone INJ 0.5 MG/0.5 ML SYR IV PRN ×2 (10:00→16:18)
[2019-01-16] MEDS ORDERED: NovoLIN-N (NPH) PER UNIT CHARGE SQ ONE (10:00)
--- NOTE | 2019-01-16 15:41 | Hospitalist Progress Note ---
Date of Service January 16, 2019 Assessment & Plan (1) Acute respiratory failure with hypoxia: This is a 48-year-old male with significant past medical history as mentioned in H&P who presents with shortness of breath and found to be hypoxic. Hypoxia. Likely secondary to acute on chronic diastolic heart failure, fluid overload and complicated by COPD Received Lasix 80 mg IV > transitioned to 40mg IV BID--> now 40mg IV daily Spironolactone continued Continues to diurese Appreciate nephrology input and recommendation Creatinine seems to be at baseline Possible recurrence of pulmonary embolism D-dimer 4000s CT angiogram cannot be performed to lack of necessary IV line LE Doppler: negative for DVTs Has been on intravenous heparin and oral Coumadin INR 2.2 today We will discontinue intravenous heparin Shortness of breath; continues to smoke Likely secondary to COPD exacerbation and possible recurrent pulmonary embolism Ultrasound of the legs negative for any DVT it was held because of recent surgery and also gastritis. Has been on Solu-Medrol and nebs S OB has been improving Advised to quit his smoking Recent history of foreign body of appendix, status post surgery. Pathology was not significant. History of hypertension, . He is on Toprol-XL and diuretics. Will monitor blood pressure. Last admission, his hydralazine and clonidine was stopped. Blood pressure on the lower side History of anemia. Stable around 10 Hypoventilation associated with obesity. Outpatient sleep study Nocturnal pulse ox when respiratory status stable Morbid obesity. Needs constant lifestyle changes. Benign prostatic hyperplasia. Continue his Flomax. -- patient reports retention at home Urology consulted Trial of voiding prior to discharge Diabetes, seems to be not on any medications at home. We will put him on diabetic diet. --Repeat A1c 6.6 Gastritis, he had hematemesis last admission. Continue Protonix b.i.d. and Carafate for 10 days. Positive H. pylori on last EGD Reported nausea with doxycycline Discussed with GI Dr. Lopez over the phone by the outgoing hospitalist, recommend amoxicillin 1000 twice a day and Flagyl 500 twice a day monitor, PPI twice a day Constipation. Continue his bowel regimen. Chronic pain, continue his home pain medications. Patient reports increased pain in his lower back Will give one dose of IV Dilaudid for breakthrough pain today Appreciate pain management input and recommendation Will not provide any extra pain medications outside the recommendation from pain therapist Depression with anxiety. Continue his duloxetine. Deep venous thrombosis prophylaxis, coumadin Code status. Full code. Subjective 01/16 Patient is seen and examined medical floor He complains to have ongoing pain at the lower back and. Just seen by pain therapist this morning He has requested me to talk to the pain therapist to increase his pain medication Complaint history of shortness of breath on exertion Diabetes has been Review of Systems 2 Review of Systems: All systems reviewed and are unremarkable except as noted below Constitutional: + fatigue Musculoskeletal: + back pain and + muscle weakness Physical Exam Physical Exam: Lying in bed comfortably Constitutional: well developed, well nourished and + morbidly obese Eyes: PERRL, conjunctivae normal, anicteric sclerae ENMT: external ear and nose normal, oropharynx normal Neck: trachea midline, no thyromegaly Respiratory: normal respiratory effort; no respiratory distress Auscultation: + diminished lung sounds and + crackles (Minimal crackles at the bases) Cardiovascular: Rate/Rhythm: regular rate and regular rhythm Heart Sounds: normal S1 and normal S2 Extremities: + edema (1-2+ bilaterally) Gastrointestinal (Abdomen): Inspection/Auscultation: + abdomen distended and normal bowel sounds Percussion/Palpation: abdomen soft; abdomen nontender Neurologic: Alert, 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. Generally weak Results & Data Vital Signs (Past 12 Hours) Vital Signs Temp Pulse Resp BP Pulse Ox 01/16/19 07:27 36.8 C 83 19 122/60 96 Laboratory Results [facility] 01/16/19 07:04 Sodium 138 Potassium 4.2 Chloride 102 Carbon Dioxide 29 BUN 33 H Creatinine 1.29 Glucose 135 H Calcium 9.4 Medications Administered Current Inpatient Medications Acetaminophen (Tylenol) 650 mg PO Q4H PRN PRN Reason: Pain or Fever Stop: 02/07/19 00:14 Albuterol (Ventolin Hfa) 2 puffs INH Q4H PRN PRN Reason: Wheezing Albuterol (Duoneb) 3 ml INH Q4H PRN PRN Reason: Shortness Of Breath Or Wheezing Stop: 02/07/19 00:14 Amoxicillin (Amoxil) 1,000 mg PO BID [facility] Stop: 01/24/19 20:59 Last Admin: 01/16/19 08:33 Dose: 1,000 mg Documented by: Aspirin (Ecotrin Ectab) 81 mg PO QAM [facility] Stop: 02/07/19 08:59 Last Admin: 01/16/19 08:34 Dose: 81 mg Documented by: Bisacodyl (Dulcolax) 10 mg AR DAILY PRN PRN Reason: Constipation Stop: 02/07/19 00:14 Bismuth Subsalicylate (Pepto-Bismol) 524 mg PO QID [facility] Stop: 02/08/19 20:59 Last Admin: 01/16/19 12:04 Dose: Not Given Documented by: Cyclobenzaprine HCl (Flexeril) 10 mg PO TID PRN PRN Reason: Muscle Spasm Stop: 02/07/19 00:14 Last Admin: 01/15/19 20:45 Dose: 10 mg Documented by: Dextrose (Dextrose 50%) 25 - 50 ml IV UD PRN; Protocol PRN Reason: Hypoglycemia Protocol Stop: 02/07/19 01:29 Docusate Sodium (Colace) 100 mg PO BID [facility] Stop: 02/07/19 08:59 Last Admin: 01/16/19 08:33 Dose: 100 mg Documented by: Duloxetine HCl (Cymbalta) 60 mg PO QAM [facility] Stop: 02/07/19 08:59 Last Admin: 01/16/19 08:33 Dose: 60 mg Documented by: Fluticasone Propionate (Flonase) 2 sprays NA QAM [facility] Stop: 02/07/19 08:59 Last Admin: 01/16/19 08:34 Dose: 2 sprays Documented by: Gabapentin (Neurontin) 600 mg PO TID [facility] Stop: 02/09/19 20:59 Last Admin: 01/16/19 12:03 Dose: 600 mg Documented by: Glucagon (Glucagen) 1 mg SQ UD PRN; Protocol PRN Reason: Hypoglycemia Protocol Stop: 02/07/19 01:29 Glucose (Glucose 40%) 15 - 30 gm PO UD PRN; Protocol PRN Reason: Hypoglycemia Protocol Stop: 02/07/19 01:29 Glucose (Dex4 Glucose) 4 - 8 tabs PO UD PRN; Protocol PRN Reason: Hypoglycemia Protocol Stop: 02/07/19 01:29 Hydromorphone HCl (Dilaudid) 0.5 mg IV BID PRN PRN Reason: Pain Stop: 01/30/19 09:01 Last Admin: 01/16/19 10:00 Dose: 0.5 mg Documented by: Hydroxyzine HCl (Vistaril) 25 mg PO QID PRN PRN Reason: Anxiety Stop: 02/07/19 00:14 Last Admin: 01/15/19 21:36 Dose: 25 mg Documented by: Furosemide 40 mg/ Syringe 4 mls @ 4 mls/min IV DAILY [facility] Stop: 02/13/19 08:59 Last Admin: 01/16/19 08:34 Dose: 4 mls/min Documented by: Insulin Aspart (Novolog Flexpen) 0 units SC ACHS [facility] Stop: 02/15/19 07:29 Last Admin: 01/16/19 12:36 Dose: 19 units Documented by: Insulin Glargine (Lantus Solostar Pen) 0 units SC 2100 ONE; Protocol Stop: 01/16/19 21:01 Isosorbide Dinitrate (Isordil) 10 mg PO BID@0700,1200 [facility] Stop: 02/07/19 00:14 Last Admin: 01/16/19 12:03 Dose: 10 mg Documented by: Lidocaine (Lidoderm 5%) 3 patch TD DAILY [facility] Stop: 02/07/19 08:59 Last Admin: 01/16/19 08:35 Dose: Not Given Documented by: Lorazepam (Ativan) 1 mg PO TID PRN PRN Reason: Anxiety Stop: 02/07/19 00:14 Last Admin: 01/16/19 00:37 Dose: 1 mg Documented by: Magnesium Oxide (Mag-Ox) 400 mg PO BID [facility] Stop: 02/07/19 08:59 Last Admin: 01/16/19 08:35 Dose: 400 mg Documented by: Metoprolol Succinate (Toprol Xl) 25 mg PO Q12 [facility] Stop: 02/07/19 00:14 Last Admin: 01/16/19 08:37 Dose: 25 mg Documented by: Metronidazole (Flagyl) 500 mg PO BID [facility] Stop: 01/24/19 20:59 Last Admin: 01/16/19 08:34 Dose: 500 mg Documented by: Miscellaneous (Order Awaiting Action) 1 ea N/A QS [facility] Stop: 02/07/19 07:59 Last Admin: 01/16/19 10:02 Dose: Not Given Documented by: Miscellaneous (Carbohydrates For Hypoglycemia) 15 - 30 gm PO UD PRN PRN Reason: Hypoglycemia Treatment Stop: 02/07/19 01:29 Miscellaneous (Remove Nicoderm Patch) 1 ea N/A QAM [facility] Stop: 02/11/19 08:59 Last Admin: 01/16/19 08:51 Dose: 1 ea Documented by: Miscellaneous Information (Consult Glycemic Management Pharmacy) 1 ea N/A UD PRN PRN Reason: Consult Stop: 02/08/19 16:56 Morphine Sulfate (Ms Contin) 15 mg PO Q12 [facility] Stop: 01/22/19 00:14 Last Admin: 01/16/19 08:35 Dose: 15 mg Documented by: Nicotine (Nicoderm Cq) 7 mg TD QAM [facility] Stop: 02/07/19 08:59 Last Admin: 01/16/19 08:35 Dose: 7 mg Documented by: Nitroglycerin (Nitrostat) 0.4 mg SL UD PRN PRN Reason: Chest Pain Stop: 02/07/19 00:14 Nystatin (Mycostatin) 1 appln EXT BID [facility] Stop: 02/07/19 08:59 Last Admin: 01/16/19 08:50 Dose: Not Given Documented by: Ondansetron HCl (Zofran) 4 mg IV Q6H PRN PRN Reason: Nausea Stop: 02/07/19 00:14 Last Admin: 01/16/19 08:38 Dose: 4 mg Documented by: Ondansetron HCl (Zofran Odt) 4 mg PO Q4H PRN PRN Reason: Nausea And Vomiting Stop: 02/07/19 00:14 Last Admin: 01/08/19 17:21 Dose: 4 mg Documented by: Oxycodone HCl (Roxicodone Immediate Rel) 15 mg PO Q4H PRN PRN Reason: Pain Last Admin: 01/16/19 12:36 Dose: 15 mg Documented by: Pantoprazole Sodium (Protonix) 40 mg PO BID [facility] Stop: 02/07/19 08:59 Last Admin: 01/16/19 08:36 Dose: 40 mg Documented by: Polyethylene Glycol (Miralax Powder Packet) 17 gm PO DAILY [facility] Stop: 02/07/19 08:59 Last Admin: 01/16/19 08:35 Dose: 17 gm Documented by: Potassium Chloride (Klor-Con M10) 40 meq PO DAILY [facility] Stop: 02/08/19 10:29 Last Admin: 01/14/19 07:49 Dose: 40 meq Documented by: Prednisone (Prednisone) 60 mg PO DAILY [facility] Stop: 02/15/19 08:59 Last Admin: 01/16/19 08:36 Dose: 60 mg Documented by: Senna/Docusate Sodium (Senokot S) 1 tab PO DAILY PRN PRN Reason: Constipation Stop: 02/07/19 00:14 Sodium Biphosphate/Sodium Phosphate (Fleet Enema) 132 ml AR DAILY PRN PRN Reason: Constipation Stop: 02/07/19 00:14 Sodium Chloride ([place] Nasal) 1 sprays NA PRN PRN PRN Reason: Dryness Stop: 02/09/19 21:59 Spironolactone (Aldactone) 50 mg PO BID17 [facility] Stop: 02/07/19 00:14 Last Admin: 01/16/19 08:33 Dose: 50 mg Documented by: Sucralfate (Carafate Tab) 1 gm PO QID [facility] Stop: 02/07/19 08:59 Last Admin: 01/16/19 12:03 Dose: 1 gm Documented by: Tamsulosin HCl (Flomax) 0.4 mg PO QAM [facility] Stop: 02/07/19 08:59 Last Admin: 01/16/19 08:34 Dose: 0.4 mg Documented by: Tiotropium [place] (Spiriva) 1 puffs INH DAILY [facility] Stop: 02/07/19 08:59 Last Admin: 01/16/19 08:36 Dose: 1 puffs Documented by: Warfarin Sodium (Coumadin) 10 mg PO Q24H [facility] Stop: 02/14/19 15:59 Last Admin: 01/15/19 15:51 Dose: 10 mg Documented by:
[2019-01-16] MEDS: WARFARIN SOD 10 MG TAB PO SCH (16:19)
[2019-01-16] MEDS ORDERED: HYDROmorphone INJ 1 MG/ML SYRINGE IV STA (18:46)
[2019-01-16] MEDS ORDERED: INSULIN GLARGINE SOLOSTAR 100 UNITS/ML 3 ML PEN SC ONE (21:00)
[2019-01-16] MEDS: CYCLOBENZAPRINE HCL 10 MG TAB PO PRN (22:03)
[2019-01-17] MEDS: OXYCODONE HCL IR 5 MG TAB (IMMEDIATE RELEASE) PO PRN ×5 (01:40→21:09)
[2019-01-17] MEDS: ISOSORBIDE DINITRATE 10 MG TAB PO SCH ×2 (07:01→12:17)
[2019-01-17 07:18] LABS: INR 1.5 (0.9-1.1); Prothrombin Time 15.2 Seconds (9.0-12.0)
[2019-01-17 07:34] LABS: BUN Creatinine Ratio 27.4 (10-20); Calcium 9.2 mg/dl (8.5-10.1); Creatinine Clr Calc Pharmacy 135.9 ml/min; Est GFR (African American) 83.2; Est GFR (Non-African American) 71.8; Potassium 4.7 mmol/L (3.5-5.1)
[2019-01-17] MEDS: SPIRONOLACTONE 25 MG TAB PO SCH ×2 (08:24→16:54)
[2019-01-17] MEDS: DULOXETINE HCL 60 MG CAP PO SCH (08:24)
[2019-01-17] MEDS: SUCRALFATE 1 GM TAB PO SCH ×4 (08:24→20:30)
[2019-01-17] MEDS: DOCUSATE SODIUM 100 MG CAP PO SCH ×2 (08:24→20:26)
[2019-01-17] MEDS: AMOXICILLIN 500 MG CAP PO SCH ×2 (08:24→20:29)
[2019-01-17] MEDS: ASPIRIN 81 MG ECTAB PO SCH (08:25)
[2019-01-17] MEDS: LIDOCAINE 5% 1 PATCH TD SCH (08:25)
[2019-01-17] MEDS: TAMSULOSIN HCL 0.4 MG CAP PO SCH (08:25)
[2019-01-17] MEDS: FUROSEMIDE 40 MG in SYRINGE 0 ML IV SCH (08:25)
[2019-01-17] MEDS: MAGNESIUM OXIDE 400 MG TAB PO SCH ×2 (08:25→20:28)
[2019-01-17] MEDS: FLUTICASONE PROPIONATE NA SPR 16 GM BTL SCH (08:25)
[2019-01-17] MEDS: metroNIDAZOLE 500 MG TAB PO SCH ×2 (08:25→20:28)
[2019-01-17] MEDS: BISMUTH SUBSALICYLATE SUSP PO SCH ×4 (08:26→20:27)
[2019-01-17] MEDS: predniSONE 20 MG TAB PO SCH (08:26)
[2019-01-17] MEDS: NICOTINE 7 MG/24 HR TDSY TD SCH (08:26)
[2019-01-17] MEDS: MoRPHine SULFATE CR 15 MG TABCR PO SCH ×2 (08:26→20:34)
[2019-01-17] MEDS: GABAPENTIN 600 MG TAB PO SCH ×3 (08:26→20:27)
[2019-01-17] MEDS: POLYETHYLENE (MIRALAX) 17 GM PACK PO SCH (08:26)
[2019-01-17] MEDS: METOPROLOL SUCC 25MG EXT REL TAB PO SCH ×2 (08:27→20:27)
[2019-01-17] MEDS: TIOTROPIUM BROMIDE 5 PUFF/90 MCG INH INH SCH (08:27)
[2019-01-17] MEDS: PANTOprazole 40 MG TAB PO SCH ×2 (08:27→20:27)
[2019-01-17] MEDS: INSULIN ASPART 100 UNITS/ML 3 ML PEN SC SCH ×4 (08:28→21:05)
[2019-01-17] MEDS: INSULIN GLARGINE SOLOSTAR 100 UNITS/ML 3 ML PEN SC SCH (08:29)
[2019-01-17] MEDS: INCRUSE ELLIPTA~ORDER AWAITING ACTION SCH ×3 (08:54→23:07)
[2019-01-17] MEDS: NYSTATIN POWDER 15GM BTL EXT SCH ×2 (08:55→20:26)
[2019-01-17] MEDS ORDERED: NovoLIN-N (NPH) PER UNIT CHARGE SQ ONE (10:00)
--- NOTE | 2019-01-17 10:33 | Nephrology Progress Note ---
Date of Service January 17, 2019 Assessment & Plan (1) MAHAMED (acute kidney injury): Patient with acute kidney injury likely in setting of diuresis. Creatinine at 1.19 from baseline of 1.1-1.2. Patient recently admitted with acute kidney injury with creatinine peak at 2.8 in setting of diuresis. He still has hypervolemia. Agree with continuing diuresis. Monitor with daily BMP. Patient needs strict input output. Continue fluid restriction to 1.8 L daily. Okay to give patient ice chips (2) Acute respiratory failure with hypoxia: Due to volume overload. Continue IV Lasix to 40 mg daily. Patient will likely need to be discharged on p.o. torsemide 40 mg as he did not respond to p.o. Lasix. Monitor daily weight and low-salt diet. (3) Hypokalemia: In setting of diuresis. k 4.7 today. Off kcl supplements. No need to restrict potassium in his diet. Subjective Patient seen in follow-up for volume overload and respiratory distress. He continues to respond well to Lasix with net -3.9 L yesterday. He reports mild improvement in breathing. Still has leg edema. He is also complaining of back pain and is being seen by pain medicine. Review of Systems Review of Systems: All systems reviewed & are unremarkable except as noted in HPI & below Physical Exam Physical Exam: General exam: Morbidly obese male, appears comfortable, no acute distress HEENT: Pupils are equal and reactive to light Neck: No JVD, neck is supple trachea is midline Respiratory system: Reduced breath sounds in the bases bilaterally. Gastrointestinal: Abdomen is soft, non distended, non tender, bowel sounds are present CVS: Regular rate and rhythm. No murmurs, rubs or gallops Musculoskeletal: No joint or muscle tenderness Extremities: Non tender, 1+ edema, peripheral pulses are present Neuro: Oriented, no tremors, no focal neurological deficits Skin: No rashes Results & Data Vital Signs (Past 12 Hours) Vital Signs Temp Pulse Resp BP BP Pulse Ox 01/17/19 09:42 97 01/17/19 09:28 36.4 C L 63 20 115/61 97 01/16/19 23:51 37 C 76 20 115/71 97 Laboratory Results Laboratory Results - last 24 hr 01/16/19 01/16/19 01/16/19 11:48 16:40 20:07 PT INR Sodium Potassium Chloride Carbon Dioxide Anion Gap BUN Creatinine Est Cr Clr Drug Dosing Est GFR ( Amer) Est GFR (Non-Af Amer) BUN/Creatinine Ratio Glucose POC Glucose 102 H 100 H 107 H Calcium 01/17/19 01/17/19 01/17/19 06:48 06:48 07:41 PT 15.2 H INR 1.5 H Sodium 136 Potassium 4.7 Chloride 104 Carbon Dioxide 30 Anion Gap 2.0 L BUN 33 H Creatinine 1.19 Est Cr Clr Drug Dosing 135.9 Est GFR ( Amer) 83.2 Est GFR (Non-Af Amer) 71.8 BUN/Creatinine Ratio 27.4 H Glucose 109 H POC Glucose 129 H Calcium 9.2
[2019-01-17] MEDS: ONDANSETRON INJ 2 MG/ML 2 ML VIAL IV PRN ×2 (12:17→18:06)
[2019-01-17] MEDS: HYDROmorphone INJ 0.5 MG/0.5 ML SYR IV PRN ×2 (12:39→14:48)
--- NOTE | 2019-01-17 12:55 | Pharmacy Report ---
Pharmacy Glycemic Short Note 2 - Date of Service January 17, 2019 - Glycemic Short BSG Results (Last 24 hours): 01/16/19 01/16/19 01/17/19 16:40 20:07 06:48 Glucose 109 H POC Glucose 100 H 107 H 01/17/19 01/17/19 07:41 11:52 Glucose POC Glucose 129 H 102 H OUTPATIENT ANTIDIABETIC REGIMEN: * None per patient. ASSESSMENT: BSGs over the previous 36hrs have been in fine order. Mr. Milner required 127 units of of insulin yesterday. He is roughly 50/50 basal/bolus. His meals are carb heavy. PLAN FOR INPATIENT GLYCEMIC CONTROL: * Basal insulin: * Lantus SQ 20 units QAM * NPH 35 units @1000 to cover prednisone's hyperglycemic effects on BSGs * Bolus insulin: * NovoLog per scale ACHS or Q6hrs while NPO * Goal Range: Low 110 mg/dL - High 140 mg/dL * Correction Factor: 12 mg/dL/unit * Nutritional / Prandial insulin per carb ratio of 1 unit per 43 grams CHO consumed PLAN FOR DISCHARGE: * HbA1c = 6.6% on 01/08/19 indicates that patient is diabetic but very close to being in control. Recommend life-style modifications as first line therapy for diabetes management. Another option is possibly starting Metformin 500mg QDB in addition to life-style changes.
--- NOTE | 2019-01-17 15:21 | Hospitalist Progress Note ---
Date of Service January 17, 2019 Assessment & Plan (1) Acute respiratory failure with hypoxia: This is a 48-year-old male with significant past medical history as mentioned in H&P who presents with shortness of breath and found to be hypoxic. Hypoxia. Likely secondary to acute on chronic diastolic heart failure, fluid overload and complicated by COPD Received Lasix 80 mg IV > transitioned to 40mg IV BID--> now 40mg IV daily Spironolactone continued Appreciate nephrology input and recommendation Creatinine seems to be at baseline Will DC intravenous Lasix and start torsemide 40 mg daily from tomorrow Possible recurrence of pulmonary embolism D-dimer 4000s CT angiogram cannot be performed to lack of necessary IV line LE Doppler: negative for DVTs Has been on intravenous heparin and oral Coumadin INR 2.2 today 01/16 INR was 1.5 today We will give 12.5 mg Coumadin today Shortness of breath; continues to smoke Likely secondary to COPD exacerbation and possible recurrent pulmonary embolism Ultrasound of the legs negative for any DVT it was held because of recent surgery and also gastritis. Has been on Solu-Medrol and nebs S OB has been improving Advised to quit his smoking Recent history of foreign body of appendix, status post surgery. Pathology was not significant. History of hypertension, . He is on Toprol-XL and diuretics. Will monitor blood pressure. Last admission, his hydralazine and clonidine was stopped. Blood pressure on the lower side History of anemia. Stable around 10 Hypoventilation associated with obesity. Outpatient sleep study Nocturnal pulse ox when respiratory status stable Morbid obesity. Needs constant lifestyle changes. Benign prostatic hyperplasia. Continue his Flomax. -- patient reports retention at home Urology consulted Trial of voiding prior to discharge Diabetes, seems to be not on any medications at home. We will put him on diabetic diet. --Repeat A1c 6.6 Gastritis, he had hematemesis last admission. Continue Protonix b.i.d. and Carafate for 10 days. Positive H. pylori on last EGD Reported nausea with doxycycline Discussed with GI Dr. Lopez over the phone by the outgoing hospitalist, recommend amoxicillin 1000 twice a day and Flagyl 500 twice a day monitor, PPI twice a day Constipation. Continue his bowel regimen. Chronic pain, continue his home pain medications. Patient reports increased pain in his lower back Will give one dose of IV Dilaudid for breakthrough pain today Appreciate pain management input and recommendation Will not provide any extra pain medications outside the recommendation from pain therapist Discussed with pain therapist and they will evaluate the patient tomorrow morning Depression with anxiety. Continue his duloxetine. Deep venous thrombosis prophylaxis, coumadin Code status. Full code. Likely discharge in a day or 2 for short-term rehab Subjective 01/16 Patient is seen and examined medical floor He complains to have ongoing pain at the lower back and. Just seen by pain therapist this morning He has requested me to talk to the pain therapist to increase his pain medication Complaint history of shortness of breath on exertion Diabetes has been 01/17 Patient was seen and examined in the medical floor. He complains to have ongoing back pain and wants to have more food He denies any acute shortness of breath Review of Systems Review of Systems: All systems reviewed and are unremarkable except as notedbelow Constitutional: + fatigue and + weakness Respiratory: + dyspnea on exertion Neurologic: Alert, 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. Generally Physical Exam Physical Exam: No apparent distress at rest Constitutional: well developed, well nourished and + morbidly obese Eyes: PERRL, conjunctivae normal, anicteric sclerae ENMT: external ear and nose normal, oropharynx normal Neck: trachea midline, no thyromegaly Respiratory: normal respiratory effort; no respiratory distress Auscultation: + diminished lung sounds and + crackles (Minimal crackles at the bases) Cardiovascular: Rate/Rhythm: regular rate and regular rhythm Heart Sounds: normal S1 and normal S2 Extremities: + edema (1-2+ bilaterally) Gastrointestinal (Abdomen): Inspection/Auscultation: + abdomen distended and normal bowel sounds Percussion/Palpation: abdomen soft; abdomen nontender Results & Data Vital Signs (Past 12 Hours) Vital Signs Temp Pulse Resp BP Pulse Ox 01/17/19 09:42 97 01/17/19 09:28 36.4 C L 63 20 115/61 97
[2019-01-17] MEDS ORDERED: LORazepam 0.5 MG/1 ML VIAL IV STA ×2 (16:02→22:20)
[2019-01-17] MEDS: WARFARIN SOD 5 MG TAB PO SCH (16:30)
[2019-01-17] MEDS ORDERED: HYDROmorphone INJ 1 MG/ML SYRINGE IV STA (18:33)
[2019-01-17] MEDS: CYCLOBENZAPRINE HCL 10 MG TAB PO PRN (21:03)
[2019-01-18] MEDS: OXYCODONE HCL IR 5 MG TAB (IMMEDIATE RELEASE) PO PRN ×6 (01:17→23:31)
[2019-01-18] MEDS: CYCLOBENZAPRINE HCL 10 MG TAB PO PRN ×2 (03:14→21:08)
[2019-01-18] MEDS: ONDANSETRON INJ 2 MG/ML 2 ML VIAL IV PRN ×3 (03:14→19:29)
[2019-01-18] MEDS: ISOSORBIDE DINITRATE 10 MG TAB PO SCH ×2 (06:29→12:22)
[2019-01-18 07:03] LABS: INR 1.3 (0.9-1.1); Prothrombin Time 13.2 Seconds (9.0-12.0)
[2019-01-18 07:18] LABS: Calcium 9.6 mg/dl (8.5-10.1); Creatinine Clr Calc Pharmacy 143.4 ml/min; Est GFR (African American) 88.6; Est GFR (Non-African American) 76.4; Potassium 4.3 mmol/L (3.5-5.1)
[2019-01-18] MEDS ORDERED: HYDROmorphone INJ 1 MG/ML SYRINGE IV PRN (08:09)
--- NOTE | 2019-01-18 08:44 | Pain Management Progress Note ---
Date of Service January 18, 2019 Assessment & Plan (1) Morbid obesity: Present on Admission?: Yes (2) Lumbar postlaminectomy syndrome: Present on Admission?: Yes (3) Lumbar radicular pain: Present on Admission?: Yes (4) Right foot pain: Present on Admission?: Yes (5) Opioid dependence: 1. We spent a great deal of time discussing his chronic opiate therapy and his request for utilization of IV hydromorphone upon this admission. We discussed that he will be unable to utilize IV opiate therapy upon discharge to rehab facility and that determine his functional status prior to discharge is important. The patient did report improved pain control last evening and was out of bed after utilization of hydromorphone 1 mg. We discussed that utilization of IV hydromorphone is not a long-term treatment option and he did verbalize understanding. Will be agreeable to utilizing hydromorphone 1 mg twice daily as needed to facilitate out of bed activities over the next few days prior to his discharge to rehab facility. 2. The patient remains a poor candidate for any interventional treatment due to his comorbid medical conditions at this time 3. Consider titration of gabapentin to improve radicular pain complaint. Will leave to discretion of hospitalist team as the patient reported a recent decrease in his gabapentin therapy due to peripheral edema/CHF. 4. Patient will continue with his chronic utilization of MS Contin and oxycodone without change in recommendations Present on Admission?: Yes Subjective Mr. Milner is a 48-year-old white male who was admitted due to a predominant complaint of shortness of breath with oxygen desaturations with significant comorbid medical conditions of morbid obesity, shortness of breath, congestive heart failure, hypertension, tobacco abuse disorder, chronic opiate dependency, PE on chronic anticoagulation therapy and history of lumbar laminectomy. Patient also has a chronic right foot pain with history of nonhealing fracture. Patient has been on chronic opiate therapy in the outpatient setting most recently was Suboxone recently transition to MS Contin and oxycodone for his low back, left lower extremity pain and right foot pain complaints. Patient is reporting increased in low back and left lower extremity radicular pain upon this admission. His pain is 50% axial and 50% radicular in the left lower extremity in an L4 versus L5 distribution. The patient has also reported persisting right-sided foot pain upon his admission. He has been minimally out of bed and mobile due to the pain and discomfort. Patient was out of bed last evening after use of hydromorphone 1 mg IV in which his pain diminished to a 5/10. He reported improved tolerability of out of bed activities. He is finding his chronic opiate therapy to be with minimal benefit in pain control and was reporting inadequate pain control with hydromorphone 0.5 mg IV. Patient will be reportedly plan to discharge to rehab facility within the next 24-48 hours. Patient denies any bowel or bladder incontinence. He has chronic neuropathy affecting the feet bilaterally and denies any lower extremity paresthesias. Patient has no further constitutional complaints. Plan of care discussed with Dr. Ching. Pain Assessment Pain Assessment Full Body Front + Back: 1. Axial lumbosacral spine 2. Left lower extremity radicular pain L4 versus L5 distribution 3. Right foot Pain scale - at its best (0-10): 5 Pain scale - at its worst (0-10): 9 Physical Exam Physical Exam: General: Mr. Milner is a morbidly obese 48-year-old white male who appears to be in no acute distress upon entering the room. The patient is sitting up. Speech and thought process appropriate. Mood and affect appropriate. Cognition intact. Back/Spine: Patient was able to lean forward for examination with no obvious discomfort. Patient has complete loss of lumbar lordosis. Nontender over the midline, facet joints or SI joints provocative testing. Patient nontender in the paravertebral, quadratus and warm gluteal musculature. Lower extremities: Trace ankle and pretibial edema. SLR increased radicular pain on the left side, SLR negative on the right. Slightly diminished sensation distally to light touch in a nondermatomal pattern. Strength 4/5 on the right with EHL and dorsiflexion 5/5 on the left. Patient reporting right-sided foot pain with any resisted movement with dorsi/plantar flexion. Neurologic: Cranial nerves grossly intact. Ambulatory function not witnessed.
[2019-01-18] MEDS: INCRUSE ELLIPTA~ORDER AWAITING ACTION SCH ×3 (08:49→23:16)
[2019-01-18] MEDS: METOPROLOL SUCC 25MG EXT REL TAB PO SCH ×2 (08:49→21:08)
[2019-01-18] MEDS: SUCRALFATE 1 GM TAB PO SCH ×4 (08:50→21:06)
[2019-01-18] MEDS: SPIRONOLACTONE 25 MG TAB PO SCH ×2 (08:50→16:35)
[2019-01-18] MEDS: DULOXETINE HCL 60 MG CAP PO SCH (08:50)
[2019-01-18] MEDS: POLYETHYLENE (MIRALAX) 17 GM PACK PO SCH (08:51)
[2019-01-18] MEDS: DOCUSATE SODIUM 100 MG CAP PO SCH ×2 (08:51→21:05)
[2019-01-18] MEDS: ASPIRIN 81 MG ECTAB PO SCH (08:51)
[2019-01-18] MEDS: FLUTICASONE PROPIONATE NA SPR 16 GM BTL SCH (08:51)
[2019-01-18] MEDS: AMOXICILLIN 500 MG CAP PO SCH ×2 (08:52→21:03)
[2019-01-18] MEDS: GABAPENTIN 600 MG TAB PO SCH ×3 (08:52→21:06)
[2019-01-18] MEDS: TAMSULOSIN HCL 0.4 MG CAP PO SCH (08:53)
[2019-01-18] MEDS: metroNIDAZOLE 500 MG TAB PO SCH ×2 (08:53→21:06)
[2019-01-18] MEDS: LIDOCAINE 5% 1 PATCH TD SCH (08:54)
[2019-01-18] MEDS: PANTOprazole 40 MG TAB PO SCH ×2 (08:54→21:09)
[2019-01-18] MEDS: predniSONE 20 MG TAB PO SCH (08:54)
[2019-01-18] MEDS: MAGNESIUM OXIDE 400 MG TAB PO SCH ×2 (08:54→21:04)
[2019-01-18] MEDS: NICOTINE 7 MG/24 HR TDSY TD SCH (08:56)
[2019-01-18] MEDS: BISMUTH SUBSALICYLATE SUSP PO SCH ×4 (08:56→21:10)
[2019-01-18] MEDS: NYSTATIN POWDER 15GM BTL EXT SCH ×2 (08:59→21:07)
[2019-01-18] MEDS ORDERED: TORSEMIDE 10 MG TAB PO SCH (09:00)
[2019-01-18] MEDS: MoRPHine SULFATE CR 15 MG TABCR PO SCH ×2 (09:04→21:16)
[2019-01-18] MEDS: INSULIN GLARGINE SOLOSTAR 100 UNITS/ML 3 ML PEN SC SCH (09:09)
[2019-01-18] MEDS: INSULIN ASPART 100 UNITS/ML 3 ML PEN SC SCH ×4 (09:13→21:19)
[2019-01-18] MEDS: TIOTROPIUM BROMIDE 5 PUFF/90 MCG INH INH SCH (09:40)
[2019-01-18] MEDS ORDERED: NovoLIN-N (NPH) PER UNIT CHARGE SQ ONE (10:00)
[2019-01-18] MEDS: LORazepam 0.5 MG/1 ML VIAL IV PRN ×2 (11:36→21:31)
--- NOTE | 2019-01-18 12:54 | Hospitalist Progress Note ---
Date of Service January 18, 2019 Assessment & Plan (1) Acute respiratory failure with hypoxia: This is a 48-year-old male with significant past medical history as mentioned in H&P who presents with shortness of breath and found to be hypoxic. Hypoxia. Likely secondary to acute on chronic diastolic heart failure, fluid overload and complicated by COPD Received Lasix 80 mg IV > transitioned to 40mg IV BID--> now 40mg IV daily Spironolactone continued Appreciate nephrology input and recommendation Creatinine seems to be at baseline Will DC intravenous Lasix and start torsemide 40 mg daily from 01/18 No symptoms of hypervolemia Chronic pain, continue his home pain medications. Patient reports increased pain in his lower back Will give one dose of IV Dilaudid for breakthrough pain today Appreciate pain management input and recommendation Will not provide any extra pain medications outside the recommendation from pain therapist Discussed with pain therapist and they will evaluate the patient tomorrow morning Possible recurrence of pulmonary embolism D-dimer 4000s CT angiogram cannot be performed to lack of necessary IV line LE Doppler: negative for DVTs Has been on intravenous heparin and oral Coumadin INR 2.2 today 01/16 INR was 1.5 today We will give 12.5 mg Coumadin today 01/17 INR is 1.3 today We will continue with current dose of Coumadin Shortness of breath; continues to smoke Likely secondary to COPD exacerbation and possible recurrent pulmonary embolism Ultrasound of the legs negative for any DVT it was held because of recent surgery and also gastritis. Has been on Solu-Medrol and nebs S OB has been improving Advised to quit his smoking Recent history of foreign body of appendix, status post surgery. Pathology was not significant. History of hypertension, . He is on Toprol-XL and diuretics. Will monitor blood pressure. Last admission, his hydralazine and clonidine was stopped. Blood pressure on the lower side History of anemia. Stable around 10 Hypoventilation associated with obesity. Outpatient sleep study Nocturnal pulse ox when respiratory status stable Morbid obesity. Needs constant lifestyle changes. Benign prostatic hyperplasia. Continue his Flomax. -- patient reports retention at home Urology consulted Trial of voiding prior to discharge Diabetes, seems to be not on any medications at home. We will put him on diabetic diet. --Repeat A1c 6.6 Gastritis, he had hematemesis last admission. Continue Protonix b.i.d. and Carafate for 10 days. Positive H. pylori on last EGD Reported nausea with doxycycline Discussed with GI Dr. Lopez over the phone by the outgoing hospitalist, recommend amoxicillin 1000 twice a day and Flagyl 500 twice a day monitor, PPI twice a day Constipation. Continue his bowel regimen. Depression with anxiety. Continue his duloxetine. Deep venous thrombosis prophylaxis, coumadin Code status. Full code. Likely discharge in a day or 2 for short-term rehab Awaiting placement Subjective 01/16 Patient is seen and examined medical floor He complains to have ongoing pain at the lower back and. Just seen by pain therapist this morning He has requested me to talk to the pain therapist to increase his pain medication Complaint history of shortness of breath on exertion Diabetes has been 01/17 Patient was seen and examined in the medical floor. 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 Review of Systems Review of Systems: All systems reviewed and is unremarkable except as noted below Constitutional: + fatigue Musculoskeletal: + back pain and + radicular pain Physical Exam Physical Exam: Lying in bed comfortably Constitutional: well developed, well nourished and + morbidly obese Eyes: PERRL, conjunctivae normal, anicteric sclerae ENMT: external ear and nose normal, oropharynx normal Neck: trachea midline, no thyromegaly Respiratory: normal respiratory effort; no respiratory distress Auscultation: + diminished lung sounds and + crackles (Minimal crackles at the bases) Cardiovascular: Rate/Rhythm: regular rate and regular rhythm Heart Sounds: normal S1 and normal S2 Extremities: + edema (1-2+ bilaterally) Gastrointestinal (Abdomen): Inspection/Auscultation: + abdomen distended and normal bowel sounds Percussion/Palpation: abdomen soft; abdomen nontender Musculoskeletal: Spine: + lumbar spinal tenderness Lymphatic: no cervical or axillary lymphadenopathy Results & Data Vital Signs (Past 12 Hours) Vital Signs Temp Pulse Resp BP Pulse Ox 01/18/19 07:29 36.5 C 64 16 119/68 96 01/18/19 06:28 67 123/77 Laboratory Results [facility] 01/18/19 06:17 Sodium 139 Potassium 4.3 Chloride 104 Carbon Dioxide 31 BUN 31 H Creatinine 1.13 Glucose 86 Calcium 9.6 Medications Administered Current Inpatient Medications Acetaminophen (Tylenol) 650 mg PO Q4H PRN PRN Reason: Pain or Fever Stop: 02/07/19 00:14 Albuterol (Ventolin Hfa) 2 puffs INH Q4H PRN PRN Reason: Wheezing Albuterol (Duoneb) 3 ml INH Q4H PRN PRN Reason: Shortness Of Breath Or Wheezing Stop: 02/07/19 00:14 Amoxicillin (Amoxil) 1,000 mg PO BID COUNT INCLUDES THE [facility] Stop: 01/24/19 20:59 Last Admin: 01/18/19 08:52 Dose: 1,000 mg Documented by: Aspirin (Ecotrin Ectab) 81 mg PO QAM COUNT INCLUDES THE [facility] Stop: 02/07/19 08:59 Last Admin: 01/18/19 08:51 Dose: 81 mg Documented by: Bisacodyl (Dulcolax) 10 mg [place] DAILY PRN PRN Reason: Constipation Stop: 02/07/19 00:14 Bismuth Subsalicylate (Pepto-Bismol) 524 mg PO QID COUNT INCLUDES THE [facility] Stop: 02/08/19 20:59 Last Admin: 01/18/19 12:25 Dose: 524 mg Documented by: Cyclobenzaprine HCl (Flexeril) 10 mg PO TID PRN PRN Reason: Muscle Spasm Stop: 02/07/19 00:14 Last Admin: 01/18/19 03:14 Dose: 10 mg Documented by: Dextrose (Dextrose 50%) 25 - 50 ml IV UD PRN; Protocol PRN Reason: Hypoglycemia Protocol Stop: 02/07/19 01:29 Docusate Sodium (Colace) 100 mg PO BID COUNT INCLUDES THE [facility] Stop: 02/07/19 08:59 Last Admin: 01/18/19 08:51 Dose: Not Given Documented by: Duloxetine HCl (Cymbalta) [facility] [place] Stop: 02/07/19 08:59 Last Admin: 01/18/19 08:50 Dose: 60 mg Documented by: Fluticasone Propionate (Flonase) 2 sprays NA QAM COUNT INCLUDES THE [facility] Stop: 02/07/19 08:59 Last Admin: 01/18/19 08:51 Dose: 2 sprays Documented by: Gabapentin (Neurontin) 600 mg PO TID COUNT INCLUDES THE [facility] Stop: 02/09/19 20:59 Last Admin: 01/18/19 12:25 Dose: 600 mg Documented by: Glucagon (Glucagen) 1 mg SQ UD PRN; Protocol PRN Reason: Hypoglycemia Protocol Stop: 02/07/19 01:29 Glucose (Glucose 40%) 15 - 30 gm PO UD PRN; Protocol PRN Reason: Hypoglycemia Protocol Stop: 02/07/19 01:29 Glucose (Dex4 Glucose) 4 - 8 tabs PO UD PRN; Protocol PRN Reason: Hypoglycemia Protocol Stop: 02/07/19 01:29 Hydromorphone HCl (Dilaudid) 1 mg IV BID PRN PRN Reason: Pain Stop: 01/30/19 09:01 Last Admin: 01/18/19 09:26 Dose: 1 mg Documented by: Hydroxyzine HCl (Vistaril) 25 mg PO QID PRN PRN Reason: Anxiety Stop: 02/07/19 00:14 Last Admin: 01/16/19 22:04 Dose: 25 mg Documented by: Lorazepam (Ativan) 0.5 mg in 1 mls @ 1 mls/min IV Q8H PRN PRN Reason: Anxiety/Agitation Stop: 02/17/19 09:41 Last Admin: 01/18/19 11:36 Dose: 1 mls/min Documented by: Insulin Aspart (Novolog Flexpen) 0 units SC ACHS COUNT INCLUDES THE [facility] Stop: 02/15/19 07:29 Last Admin: 01/18/19 12:23 Dose: 32 units Documented by: Insulin Glargine (Lantus Solostar Pen) 20 units SC QAM COUNT INCLUDES THE [facility] Stop: 02/16/19 08:59 Last Admin: 01/18/19 09:09 Dose: 20 units Documented by: Isosorbide Dinitrate (Isordil) 10 mg PO BID@0700,1200 COUNT INCLUDES THE [facility] Stop: 02/07/19 00:14 Last Admin: 01/18/19 12:22 Dose: 10 mg Documented by: Lidocaine (Lidoderm 5%) 3 patch TD DAILY COUNT INCLUDES THE [facility] Stop: 02/07/19 08:59 Last Admin: 01/18/19 08:54 Dose: Not Given Documented by: Magnesium Oxide (Mag-Ox) 400 mg PO BID COUNT INCLUDES THE [facility] Stop: 02/07/19 08:59 Last Admin: 01/18/19 08:54 Dose: 400 mg Documented by: Metoprolol Succinate (Toprol Xl) 25 mg PO Q12 COUNT INCLUDES THE [facility] Stop: 02/07/19 00:14 Last Admin: 01/18/19 08:49 Dose: 25 mg Documented by: Metronidazole (Flagyl) 500 mg PO BID COUNT INCLUDES THE [facility] Stop: 01/24/19 20:59 Last Admin: 01/18/19 08:53 Dose: 500 mg Documented by: Miscellaneous (Order Awaiting Action) 1 ea N/A QS COUNT INCLUDES THE [facility] Stop: 02/07/19 07:59 Last Admin: 01/18/19 08:49 Dose: Not Given Documented by: Miscellaneous (Carbohydrates For Hypoglycemia) 15 - 30 gm PO UD PRN PRN Reason: Hypoglycemia Treatment Stop: 02/07/19 01:29 Miscellaneous (Remove Nicoderm Patch) 1 ea N/A QAM COUNT INCLUDES THE [facility] Stop: 02/11/19 08:59 Last Admin: 01/18/19 08:56 Dose: 1 ea Documented by: Miscellaneous Information (Consult Glycemic Management Pharmacy) 1 ea N/A UD PRN PRN Reason: Consult Stop: 02/08/19 16:56 Morphine Sulfate (Ms Contin) 15 mg PO Q12 COUNT INCLUDES THE [facility] Stop: 01/22/19 00:14 Last Admin: 01/18/19 09:04 Dose: 15 mg Documented by: Nicotine (Nicoderm Cq) [facility] [place] Stop: 02/07/19 08:59 Last Admin: 01/18/19 08:56 Dose: 7 mg Documented by: Nitroglycerin (Nitrostat) 0.4 mg SL UD PRN PRN Reason: Chest Pain Stop: 02/07/19 00:14 Nystatin (Mycostatin) 1 appln EXT BID COUNT INCLUDES THE [facility] Stop: 02/07/19 08:59 Last Admin: 01/18/19 08:59 Dose: Not Given Documented by: Ondansetron HCl (Zofran) 4 mg IV Q6H PRN PRN Reason: Nausea Stop: 02/07/19 00:14 Last Admin: 01/18/19 09:05 Dose: 4 mg Documented by: Ondansetron HCl (Zofran Odt) 4 mg PO Q4H PRN PRN Reason: Nausea And Vomiting Stop: 02/07/19 00:14 Last Admin: 01/08/19 17:21 Dose: 4 mg Documented by: Oxycodone HCl (Roxicodone Immediate Rel) 15 mg PO Q4H PRN PRN Reason: Pain Last Admin: 01/18/19 10:30 Dose: 15 mg Documented by: Pantoprazole Sodium (Protonix) 40 mg PO BID COUNT INCLUDES THE [facility] Stop: 02/07/19 08:59 Last Admin: 01/18/19 08:54 Dose: 40 mg Documented by: Polyethylene Glycol (Miralax Powder Packet) 17 gm PO DAILY EMPERATRIZ Stop: 02/07/19 08:59 Last Admin: 01/18/19 08:51 Dose: Not Given Documented by: Potassium Chloride (Klor-Con M10) 40 meq PO DAILY COUNT INCLUDES THE [facility] Stop: 02/08/19 10:29 Last Admin: 01/14/19 07:49 Dose: 40 meq Documented by: Prednisone (Prednisone) 60 mg PO DAILY COUNT INCLUDES THE [facility] Stop: 02/15/19 08:59 Last Admin: 01/18/19 08:54 Dose: 60 mg Documented by: Senna/Docusate Sodium (Senokot S) 1 tab PO DAILY PRN PRN Reason: Constipation Stop: 02/07/19 00:14 Sodium Biphosphate/Sodium Phosphate (Fleet Enema) 132 ml TX DAILY PRN PRN Reason: Constipation Stop: 02/07/19 00:14 Sodium Chloride ([place] Nasal) 1 sprays NA PRN PRN PRN Reason: Dryness Stop: 02/09/19 21:59 Spironolactone (Aldactone) 50 mg PO BID17 COUNT INCLUDES THE [facility] Stop: 02/07/19 00:14 Last Admin: 01/18/19 08:50 Dose: 50 mg Documented by: Sucralfate (Carafate Tab) 1 gm PO QID COUNT INCLUDES THE [facility] Stop: 02/07/19 08:59 Last Admin: 01/18/19 12:21 Dose: 1 gm Documented by: Tamsulosin HCl (Flomax) 0.4 mg PO QAM COUNT INCLUDES THE [facility] Stop: 02/07/19 08:59 Last Admin: 01/18/19 08:53 Dose: 0.4 mg Documented by: Tiotropium [place] (Spiriva) 1 puffs INH DAILY COUNT INCLUDES THE [facility] Stop: 02/07/19 08:59 Last Admin: 01/18/19 09:40 Dose: 1 puffs Documented by: Torsemide (Demadex) 40 mg PO QAM COUNT INCLUDES THE [facility] Stop: 02/17/19 08:59 Last Admin: 01/18/19 08:49 Dose: 40 mg Documented by: Warfarin Sodium (Coumadin) 12.5 mg PO DAILY@1600 EMPERATRIZ Stop: 02/16/19 15:59 Last Admin: 01/17/19 16:30 Dose: 12.5 mg Documented by:
[2019-01-18] MEDS: WARFARIN SOD 5 MG TAB PO SCH (16:34)
[2019-01-18] MEDS: HYDROmorphone INJ 1 MG/ML SYRINGE IV PRN (18:08)
--- NOTE | 2019-01-18 19:59 | Nephrology Progress Note ---
Date of Service January 18, 2019 Assessment & Plan (1) MAHAMED (acute kidney injury): Patient with acute kidney injury likely in setting of diuresis. Creatinine at 1.1 from baseline of 1.1-1.2. Patient recently admitted with acute kidney injury with creatinine peak at 2.8 in setting of diuresis. He still has hypervolemia. Agree with continuing diuresis. Monitor with daily BMP. Patient needs strict input output. Continue fluid restriction to 1.8 L daily. Okay to give patient ice chips (2) Acute respiratory failure with hypoxia: Due to volume overload. Continue IV Lasix to 40 mg daily. Patient will likely need to be discharged on p.o. torsemide 40 mg as he did not respond to p.o. Lasix. Monitor daily weight and low-salt diet. (3) Hypokalemia: In setting of diuresis. k 4.3 today. Off kcl supplements. No need to restrict potassium in his diet. Subjective Patient reports some improvement in breathing. Still has back pain. he is also concerned about urinary retention when they remove fontaine Review of Systems Review of Systems: All systems reviewed & are unremarkable except as noted in HPI & below Physical Exam Physical Exam: General exam: Obese male, Appears comfortable, no acute distress HEENT: Pupils are equal and reactive to light Neck: No JVD, neck is supple trachea is midline Respiratory system: Clear breath sounds bilaterally. Gastrointestinal: Abdomen is soft, non distended, non tender, bowel sounds are present CVS: Regular rate and rhythm. No murmurs, rubs or gallops Musculoskeletal: No joint or muscle tenderness Extremities: Non tender, 1+ edema, peripheral pulses are present Neuro: Oriented, no tremors, no focal neurological deficits Skin: No rashes Results & Data Vital Signs (Past 12 Hours) Vital Signs Temp Pulse Resp BP Pulse Ox 01/18/19 15:42 36.7 C 97 H 20 110/75 95 Laboratory Results Laboratory Results - last 24 hr 01/17/19 01/18/19 01/18/19 20:03 06:17 06:17 PT 13.2 H INR 1.3 H Sodium 139 Potassium 4.3 Chloride 104 Carbon Dioxide 31 Anion Gap 5.0 BUN 31 H Creatinine 1.13 Est Cr Clr Drug Dosing 143.4 Est GFR ( Amer) 88.6 Est GFR (Non-Af Amer) 76.4 BUN/Creatinine Ratio 27.0 H Glucose 86 POC Glucose 196 H Calcium 9.6 01/18/19 01/18/19 01/18/19 07:49 12:00 16:15 PT INR Sodium Potassium Chloride Carbon Dioxide Anion Gap BUN Creatinine Est Cr Clr Drug Dosing Est GFR ( Amer) Est GFR (Non-Af Amer) BUN/Creatinine Ratio Glucose POC Glucose 106 H 80 82 Calcium
[2019-01-18] MEDS ORDERED: LORazepam 0.5 MG TAB PO STA (23:55)
[2019-01-19] MEDS: ISOSORBIDE DINITRATE 10 MG TAB PO SCH ×2 (05:47→12:40)
[2019-01-19] MEDS: OXYCODONE HCL IR 5 MG TAB (IMMEDIATE RELEASE) PO PRN ×5 (05:48→23:46)
[2019-01-19] MEDS: LORazepam 0.5 MG/1 ML VIAL IV PRN (06:05)
[2019-01-19 07:06] LABS: BUN Creatinine Ratio 27.8 (10-20); Calcium 9.5 mg/dl (8.5-10.1); Creatinine Clr Calc Pharmacy 130.7 ml/min; Est GFR (African American) 79.2; Est GFR (Non-African American) 68.3; Potassium 4.1 mmol/L (3.5-5.1)
[2019-01-19] MEDS: MoRPHine SULFATE CR 15 MG TABCR PO SCH ×2 (08:55→21:37)
[2019-01-19] MEDS: predniSONE 20 MG TAB PO SCH (08:55)
[2019-01-19] MEDS: GABAPENTIN 600 MG TAB PO SCH ×3 (08:56→21:10)
[2019-01-19] MEDS: DULOXETINE HCL 60 MG CAP PO SCH (08:56)
[2019-01-19] MEDS: SPIRONOLACTONE 25 MG TAB PO SCH ×2 (08:57→18:36)
[2019-01-19] MEDS: METOPROLOL SUCC 25MG EXT REL TAB PO SCH ×2 (08:57→21:14)
[2019-01-19] MEDS: ASPIRIN 81 MG ECTAB PO SCH (08:57)
[2019-01-19] MEDS: DOCUSATE SODIUM 100 MG CAP PO SCH ×2 (08:57→21:09)
[2019-01-19] MEDS: POLYETHYLENE (MIRALAX) 17 GM PACK PO SCH (08:57)
[2019-01-19] MEDS: TAMSULOSIN HCL 0.4 MG CAP PO SCH (08:58)
[2019-01-19] MEDS: SUCRALFATE 1 GM TAB PO SCH ×4 (08:58→21:08)
[2019-01-19] MEDS: PANTOprazole 40 MG TAB PO SCH ×2 (08:58→21:10)
[2019-01-19] MEDS: MAGNESIUM OXIDE 400 MG TAB PO SCH ×2 (08:58→21:09)
[2019-01-19] MEDS: TIOTROPIUM BROMIDE 5 PUFF/90 MCG INH INH SCH (08:59)
[2019-01-19] MEDS: AMOXICILLIN 500 MG CAP PO SCH ×2 (08:59→21:09)
[2019-01-19] MEDS: FLUTICASONE PROPIONATE NA SPR 16 GM BTL SCH (09:00)
[2019-01-19] MEDS ORDERED: TORSEMIDE 10 MG TAB PO SCH (09:00)
[2019-01-19] MEDS: LIDOCAINE 5% 1 PATCH TD SCH (09:00)
[2019-01-19 09:01] LABS: INR 1.7 (0.9-1.1); Prothrombin Time 17.1 Seconds (9.0-12.0)
[2019-01-19] MEDS: NICOTINE 7 MG/24 HR TDSY TD SCH (09:01)
[2019-01-19] MEDS: NYSTATIN POWDER 15GM BTL EXT SCH ×2 (09:04→21:38)
[2019-01-19] MEDS: BISMUTH SUBSALICYLATE SUSP PO SCH ×4 (09:04→21:14)
[2019-01-19] MEDS: INSULIN GLARGINE SOLOSTAR 100 UNITS/ML 3 ML PEN SC SCH (09:05)
[2019-01-19] MEDS: INCRUSE ELLIPTA~ORDER AWAITING ACTION SCH ×3 (09:07→23:46)
[2019-01-19] MEDS: INSULIN ASPART 100 UNITS/ML 3 ML PEN SC SCH ×4 (09:07→21:39)
[2019-01-19] MEDS: metroNIDAZOLE 500 MG TAB PO SCH ×2 (09:19→21:08)
[2019-01-19] MEDS ORDERED: NovoLIN-N (NPH) PER UNIT CHARGE SQ ONE (09:30)
--- NOTE | 2019-01-19 09:48 | Nephrology Progress Note ---
Date of Service January 19, 2019 Assessment & Plan (1) MAHAMED (acute kidney injury): Patient with acute kidney injury likely in setting of diuresis. Creatinine at 1.2 from baseline of 1.1-1.2. Patient recently admitted with acute kidney injury with creatinine peak at 2.8 in setting of diuresis. He still has hypervolemia. Agree with continuing diuresis. Monitor with daily BMP. Patient needs strict input output. Continue fluid restriction to 1.8 L daily. Okay to give patient ice chips (2) Acute respiratory failure with hypoxia: Due to volume overload. Reduce torsemide to 20 mg daily. Continue Aldactone 50 mg twice daily. Monitor daily weight and low-salt diet. (3) Hypokalemia: In setting of diuresis. k 4.1 today. Off kcl supplements. No need to restrict potassium in his diet. Subjective Patient seen in f/u. he continues to diurese well. He is only using oxygen at night. No SOB now. Still has fontaine. He would like Fontaine removed before going home Review of Systems Review of Systems: All systems reviewed & are unremarkable except as noted in HPI & below Physical Exam Physical Exam: General exam: Morbidly obese male, appears comfortable, no acute distress HEENT: Pupils are equal and reactive to light Neck: No JVD, neck is supple trachea is midline Respiratory system: Clear breath sounds bilaterally. Gastrointestinal: Abdomen is soft, non distended, non tender, bowel sounds are present CVS: Regular rate and rhythm. No murmurs, rubs or gallops Musculoskeletal: No joint or muscle tenderness Extremities: Non tender, 1+ edema, peripheral pulses are present Neuro: Oriented, no tremors, no focal neurological deficits Skin: No rashes Results & Data Vital Signs (Past 12 Hours) Vital Signs Temp Pulse Resp BP Pulse Ox 01/19/19 07:00 36.6 C 77 22 108/65 95 01/18/19 23:10 36.7 C 82 21 104/63 93 Laboratory Results Laboratory Results - last 24 hr 01/18/19 01/18/19 01/18/19 12:00 16:15 20:01 PT INR Sodium Potassium Chloride Carbon Dioxide Anion Gap BUN Creatinine Est Cr Clr Drug Dosing Est GFR ( Amer) Est GFR (Non-Af Amer) BUN/Creatinine Ratio Glucose POC Glucose 80 82 137 H Calcium 01/19/19 01/19/19 01/19/19 06:13 06:14 07:48 PT 17.1 H INR 1.7 H Sodium 137 Potassium 4.1 Chloride 102 Carbon Dioxide 31 Anion Gap 4.0 BUN 34 H Creatinine 1.24 Est Cr Clr Drug Dosing 130.7 Est GFR ( Amer) 79.2 Est GFR (Non-Af Amer) 68.3 BUN/Creatinine Ratio 27.8 H Glucose 143 H POC Glucose 175 H Calcium 9.5
[2019-01-19] MEDS: HYDROmorphone INJ 1 MG/ML SYRINGE IV PRN ×2 (10:29→19:59)
--- NOTE | 2019-01-19 11:04 | Urology Progress Note ---
Date of Service January 19, 2019 Assessment & Plan (1) Urinary retention: 48yo M with multiple comorbidities, urinary retention. Fontaine catheter d/c'd this AM. Pt has not voided yet. If unable to void in 8 hours, okay to replace catheter and please make our office aware as this will change outpatient f/u schedule. Discussed addition of finasteride for BPH management. Discussed side effects, pt agreeable to add. Continue tamsulosin. Pt verbalizes understanding and importance of followup. Unfortunately it appears he has been noncompliant with followup with multiple providers. Thank you for allowing us to participate in the care of Mr. Milner. Please reconsult with additional questions, concerns or changes in patient status. Subjective 48yo M with CHF, HTN, DM, COPD, constipation, BPH was admitted with shortness of breath and hypoxia on 01/07. We were consulted for assistance with fontaine catheter management. Fontaine was placed without difficulty due to slow stream and need for accurate I&Os. I was contacted by the primary service today for re-evaluation and recommendation for BPH medications upon discharge. Fontaine catheter was d/c'd per our recommendations. He is generally feeling better, pleasant and conversive. Pt has not voided yet. He has been taking tamsulosin, the question is whether finasteride would be beneficial to add to regimen. Review of Systems Review of Systems: All systems reviewed & are unremarkable except as noted in HPI & below Physical Exam Physical Exam: A&Ox3 RRR Abd large, round, soft Results & Data Vital Signs (Past 12 Hours) Vital Signs Temp Pulse Resp BP Pulse Ox 01/19/19 07:00 36.6 C 77 22 108/65 95 01/18/19 23:10 36.7 C 82 21 104/63 93 Laboratory Results Laboratory Results - last 48 hr 01/17/19 01/17/19 01/18/19 16:39 20:03 06:17 PT INR Sodium 139 Potassium 4.3 Chloride 104 Carbon Dioxide 31 Anion Gap 5.0 BUN 31 H Creatinine 1.13 Est Cr Clr Drug Dosing 143.4 Est GFR ( Amer) 88.6 Est GFR (Non-Af Amer) 76.4 BUN/Creatinine Ratio 27.0 H Glucose 86 POC Glucose 145 H 196 H Calcium 9.6 01/18/19 01/18/19 01/18/19 06:17 07:49 12:00 PT 13.2 H INR 1.3 H Sodium Potassium Chloride Carbon Dioxide Anion Gap BUN Creatinine Est Cr Clr Drug Dosing Est GFR ( Amer) Est GFR (Non-Af Amer) BUN/Creatinine Ratio Glucose POC Glucose 106 H 80 Calcium 01/18/19 01/18/19 01/19/19 16:15 20:01 06:13 PT INR Sodium 137 Potassium 4.1 Chloride 102 Carbon Dioxide 31 Anion Gap 4.0 BUN 34 H Creatinine 1.24 Est Cr Clr Drug Dosing 130.7 Est GFR ( Amer) 79.2 Est GFR (Non-Af Amer) 68.3 BUN/Creatinine Ratio 27.8 H Glucose 143 H POC Glucose 82 137 H Calcium 9.5 01/19/19 01/19/19 01/19/19 06:14 07:48 11:41 PT 17.1 H INR 1.7 H Sodium Potassium Chloride Carbon Dioxide Anion Gap BUN Creatinine Est Cr Clr Drug Dosing Est GFR ( Amer) Est GFR (Non-Af Amer) BUN/Creatinine Ratio Glucose POC Glucose 175 H 129 H Calcium
[2019-01-19] MEDS: ONDANSETRON INJ 2 MG/ML 2 ML VIAL IV PRN (12:39)
[2019-01-19] MEDS ORDERED: LORazepam 0.5 MG/1 ML VIAL IV PRN (12:45)
[2019-01-19] MEDS: CYCLOBENZAPRINE HCL 10 MG TAB PO PRN ×2 (13:49→21:38)
--- NOTE | 2019-01-19 15:21 | Pharmacy Report ---
Pharmacy Glycemic Short Note 2 - Date of Service January 19, 2019 - Glycemic Short BSG Results (Last 24 hours): 01/18/19 01/18/19 01/19/19 16:15 20:01 06:13 Glucose 143 H POC Glucose 82 137 H 01/19/19 01/19/19 07:48 11:41 Glucose POC Glucose 175 H 129 H OUTPATIENT ANTIDIABETIC REGIMEN: * None per patient. ASSESSMENT: * Patient received total of 141 units of insulin yesterday 55 units of which were basal (Lantus + NPH insulin). * Fasting BSG and post-prandial BSGs have at goal or close to goal- continued current Novolog parameters. * Prednisone dose decreased from 60 mg to 20 mg daily- so NPH dose was also decreased by a third today. * Patient's meals have been carb heavy. PLAN FOR INPATIENT GLYCEMIC CONTROL: * Basal insulin: * Lantus SQ 20 units QAM * NPH 20 units this AM to cover prednisone's hyperglycemic effects on BSGs * Bolus insulin: * NovoLog per scale ACHS or Q6hrs while NPO * Goal Range: Low 110 mg/dL - High 140 mg/dL * Correction Factor: 15 mg/dL/unit * Nutritional / Prandial insulin per carb ratio of 1 unit per 5 grams CHO consumed PLAN FOR DISCHARGE: * HbA1c = 6.6% on 01/08/19 indicates that patient is diabetic but very close to being in control. Recommend life-style modifications as first line therapy for diabetes management. Another option is possibly starting Metformin 500mg once daily with meal in addition to life-style changes.
[2019-01-19] MEDS: LORazepam 1 MG/2 ML VIAL IV PRN (15:28)
[2019-01-19] MEDS: WARFARIN SOD 5 MG TAB PO SCH (15:29)
--- NOTE | 2019-01-19 15:37 | Hospitalist Progress Note ---
Date of Service January 19, 2019 Assessment & Plan (1) Acute respiratory failure with hypoxia: This is a 48-year-old male with significant past medical history as mentioned in H&P who presents with shortness of breath and found to be hypoxic. Hypoxia. Likely secondary to acute on chronic diastolic heart failure, fluid overload and complicated by COPD Received Lasix 80 mg IV > transitioned to 40mg IV BID--> now 40mg IV daily Spironolactone continued Appreciate nephrology input and recommendation Creatinine seems to be at baseline Will DC intravenous Lasix and start torsemide 40 mg daily from 01/18 No symptoms of hypervolemia No shortness of breath at rest and saturating normally on room air Chronic pain, continue his home pain medications. Patient reports increased pain in his lower back Will give one dose of IV Dilaudid for breakthrough pain today Appreciate pain management input and recommendation Will not provide any extra pain medications outside the recommendation from pain therapist Discussed with pain therapist and they will evaluate the patient tomorrow morning After she had pain therapist input and recommendation Has been getting IV Dilaudid for now 2 times daily-will not be given any IV pain medications on discharge Possible recurrence of pulmonary embolism D-dimer 4000s CT angiogram cannot be performed to lack of necessary IV line LE Doppler: negative for DVTs Has been on intravenous heparin and oral Coumadin INR 2.2 today 01/16 INR was 1.5 today We will give 12.5 mg Coumadin today 01/17 INR is 1.3 today We will continue with current dose of Coumadin INR remains low at 1.7 We will continue with Coumadin 12.5 mg today Repeat INR in a.m. if therapeutic ,the patient will be discharged to [facility] Shortness of breath; continues to smoke Likely secondary to COPD exacerbation and possible recurrent pulmonary embolism Ultrasound of the legs negative for any DVT it was held because of recent surgery and also gastritis. Has been on Solu-Medrol and nebs S OB has been improving Advised to quit his smoking Recent history of foreign body of appendix, status post surgery. Pathology was not significant. History of hypertension, . He is on Toprol-XL and diuretics. Will monitor blood pressure. Last admission, his hydralazine and clonidine was stopped. Blood pressure on the lower side History of anemia. Stable around 10 Hypoventilation associated with obesity. Outpatient sleep study Nocturnal pulse ox when respiratory status stable Morbid obesity. Needs constant lifestyle changes. Benign prostatic hyperplasia. Continue his Flomax. -- patient reports retention at home Urology consulted Trial of voiding prior to discharge Lloyd has been discontinued may need to be reintroduced Additional medicine has been added for BPH Diabetes, seems to be not on any medications at home. We will put him on diabetic diet. --Repeat A1c 6.6 Gastritis, he had hematemesis last admission. Continue Protonix b.i.d. and Carafate for 10 days. Positive H. pylori on last EGD Reported nausea with doxycycline Discussed with GI Dr. Lopez over the phone by the outgoing hospitalist, recommend amoxicillin 1000 twice a day and Flagyl 500 twice a day monitor, PPI twice a day Continue with current treatment for H. pylori Constipation. Continue his bowel regimen. Depression with anxiety. Continue his duloxetine. Deep venous thrombosis prophylaxis, coumadin Code status. Full code. Likely discharge in a day or 2 for short-term rehab Awaiting placement Has been accepted to skilled care facility Likely be discharged tomorrow Subjective 01/16 Patient is seen and examined medical floor He complains to have ongoing pain at the lower back and. Just seen by pain therapist this morning He has requested me to talk to the pain therapist to increase his pain medication Complaint history of shortness of breath on exertion Diabetes has been 01/17 Patient was seen and examined in the medical floor. He complains to have ongoing back pain and wants to have more food He denies any acute shortness of breath 01/18 Patient was seen and examined the medical floor He has been feeling better today and denies any significant symptoms He was seen by the pain therapist and also parasitology teacher and dietitian 01/19 Patient was seen and examined in the medical unit He remains stable for the last 2 days He has been asking for more antianxiety medications He has been getting his meals as per his choice Denies any significant pain Review of Systems Review of Systems: All systems reviewed and are unremarkable except as noted below Constitutional: + malaise and + weakness Respiratory: + cough; no dyspnea and no wheezing Musculoskeletal: + back pain and + radicular pain Neurologic: + generalized weakness Physical Exam Physical Exam: No apparent distress at rest Constitutional: well developed, well nourished and + morbidly obese Eyes: PERRL, conjunctivae normal, anicteric sclerae ENMT: external ear and nose normal, oropharynx normal Neck: trachea midline, no thyromegaly Respiratory: normal respiratory effort; no respiratory distress Auscultation: + diminished lung sounds and + crackles (Minimal crackles at the bases) Cardiovascular: Rate/Rhythm: regular rate and regular rhythm Heart Sounds: normal S1 and normal S2 Extremities: + edema (1-2+ bilaterally) Gastrointestinal (Abdomen): Inspection/Auscultation: + abdomen distended and normal bowel sounds Percussion/Palpation: abdomen soft; abdomen nontender Musculoskeletal: Spine: + lumbar spinal tenderness Lymphatic: no cervical or axillary lymphadenopathy Results & Data Vital Signs (Past 12 Hours) Vital Signs Temp Pulse Resp BP Pulse Ox 01/19/19 15:00 36.3 C L 92 H 22 107/70 95 01/19/19 13:38 118/76 01/19/19 07:00 36.6 C 77 22 108/65 95 Laboratory Results [facility] 01/19/19 06:13 Sodium 137 Potassium 4.1 Chloride 102 Carbon Dioxide 31 BUN 34 H Creatinine 1.24 Glucose 143 H Calcium 9.5 Medications Administered Current Inpatient Medications Acetaminophen (Tylenol) 650 mg PO Q4H PRN PRN Reason: Pain or Fever Stop: 02/07/19 00:14 Albuterol (Ventolin Hfa) 2 puffs INH Q4H PRN PRN Reason: Wheezing Albuterol (Duoneb) 3 ml INH Q4H PRN PRN Reason: Shortness Of Breath Or Wheezing Stop: 02/07/19 00:14 Amoxicillin (Amoxil) 1,000 mg PO BID [facility] Stop: 01/24/19 20:59 Last Admin: 01/19/19 08:59 Dose: 1,000 mg Documented by: Aspirin (Ecotrin Ectab) 81 mg PO QAM [facility] Stop: 02/07/19 08:59 Last Admin: 01/19/19 08:57 Dose: 81 mg Documented by: Bisacodyl (Dulcolax) 10 mg AK DAILY PRN PRN Reason: Constipation Stop: 02/07/19 00:14 Bismuth Subsalicylate (Pepto-Bismol) 524 mg PO QID [facility] Stop: 02/08/19 20:59 Last Admin: 01/19/19 12:43 Dose: 524 mg Documented by: Cyclobenzaprine HCl (Flexeril) 10 mg PO TID PRN PRN Reason: Muscle Spasm Stop: 02/07/19 00:14 Last Admin: 01/19/19 13:49 Dose: 10 mg Documented by: Dextrose (Dextrose 50%) 25 - 50 ml IV UD PRN; Protocol PRN Reason: Hypoglycemia Protocol Stop: 02/07/19 01:29 Docusate Sodium (Colace) 100 mg PO BID [facility] Stop: 02/07/19 08:59 Last Admin: 01/19/19 08:57 Dose: Not Given Documented by: Dul[facility]etine [facility] (Cymbalta) [facility] Stop: 02/07/19 08:59 Last Admin: 01/19/19 08:56 Dose: 60 mg Documented by: Finasteride (Proscar) [facility] Stop: 02/19/19 08:59 Fluticasone Propionate (Flonase) 2 sprays NA [facility] Stop: 02/07/19 08:59 Last Admin: 01/19/19 09:00 Dose: 2 sprays Documented by: Gabapentin (Neurontin) 600 mg PO TID [facility] Stop: 02/09/19 20:59 Last Admin: 01/19/19 12:40 Dose: 600 mg Documented by: Glucagon (Glucagen) 1 mg SQ UD PRN; Protocol PRN Reason: Hypoglycemia Protocol Stop: 02/07/19 01:29 Glucose (Glucose 40%) 15 - 30 gm PO UD PRN; Protocol PRN Reason: Hypoglycemia Protocol Stop: 02/07/19 01:29 Glucose (Dex4 Glucose) 4 - 8 tabs PO UD PRN; Protocol PRN Reason: Hypoglycemia Protocol Stop: 02/07/19 01:29 Hydromorphone HCl (Dilaudid) 1 mg IV BID PRN PRN Reason: Pain Stop: 02/01/19 08:08 Last Admin: 01/19/19 10:29 Dose: 1 mg Documented by: Hydroxyzine HCl (Vistaril) 25 mg PO QID PRN PRN Reason: Anxiety Stop: 02/07/19 00:14 Last Admin: 01/16/19 22:04 Dose: 25 mg Documented by: Lorazepam (Ativan) 1 mg in 2 mls @ 0.5 mls/min IV Q8H PRN PRN Reason: Anxiety/Agitation Stop: 02/18/19 14:21 Last Admin: 01/19/19 15:28 Dose: 0.5 mls/min Documented by: Insulin Aspart (Novolog Flexpen) 0 units SC ACHS [facility] Stop: 02/15/19 07:29 Last Admin: 01/19/19 12:38 Dose: 31 units Documented by: Insulin Glargine (Lantus Solostar Pen) 20 units SC QAM [facility] Stop: 02/16/19 08:59 Last Admin: 01/19/19 09:05 Dose: 20 units Documented by: Isosorbide Dinitrate (Isordil) 10 mg PO BID@0700,1200 [facility] Stop: 02/07/19 00:14 Last Admin: 01/19/19 12:40 Dose: 10 mg Documented by: Lidocaine (Lidoderm 5%) 3 patch TD DAILY [facility] Stop: 02/07/19 08:59 Last Admin: 01/19/19 09:00 Dose: Not Given Documented by: Magnesium Oxide (Mag-Ox) 400 mg PO BID [facility] Stop: 02/07/19 08:59 Last Admin: 01/19/19 08:58 Dose: 400 mg Documented by: Metoprolol Succinate (Toprol Xl) 25 mg PO Q12 [facility] Stop: 02/07/19 00:14 Last Admin: 01/19/19 08:57 Dose: 25 mg Documented by: Metronidazole (Flagyl) 500 mg PO BID [facility] Stop: 01/24/19 20:59 Last Admin: 01/19/19 09:19 Dose: 500 mg Documented by: Miscellaneous (Order Awaiting Action) 1 ea N/A QS [facility] Stop: 02/07/19 07:59 Last Admin: 01/19/19 15:33 Dose: Not Given Documented by: Miscellaneous (Carbohydrates For Hypoglycemia) 15 - 30 gm PO UD PRN PRN Reason: Hypoglycemia Treatment Stop: 02/07/19 01:29 Miscellaneous (Remove Nicoderm Patch) 1 ea N/A QAM [facility] Stop: 02/11/19 08:59 Last Admin: 01/19/19 09:04 Dose: 1 ea Documented by: Miscellaneous Information (Consult Glycemic Management Pharmacy) 1 ea N/A UD PRN PRN Reason: Consult Stop: 02/08/19 16:56 Morphine Sulfate (Ms Contin) 15 mg PO Q12 [facility] Stop: 01/22/19 00:14 Last Admin: 01/19/19 08:55 Dose: 15 mg Documented by: Nicotine (Nicoderm Cq) 7 mg TD QAM [facility] Stop: 02/07/19 08:59 Last Admin: 01/19/19 09:01 Dose: 7 mg Documented by: Nitroglycerin (Nitrostat) 0.4 mg SL UD PRN PRN Reason: Chest Pain Stop: 02/07/19 00:14 Nystatin (Mycostatin) 1 appln EXT BID [facility] Stop: 02/07/19 08:59 Last Admin: 01/19/19 09:04 Dose: Not Given Documented by: Ondansetron HCl (Zofran) 4 mg IV Q6H PRN PRN Reason: Nausea Stop: 02/07/19 00:14 Last Admin: 01/19/19 12:39 Dose: 4 mg Documented by: Ondansetron HCl (Zofran Odt) 4 mg PO Q4H PRN PRN Reason: Nausea And Vomiting Stop: 02/07/19 00:14 Last Admin: 01/08/19 17:21 Dose: 4 mg Documented by: Oxycodone HCl (Roxicodone Immediate Rel) 15 mg PO Q4H PRN PRN Reason: Pain Last Admin: 01/19/19 14:40 Dose: 15 mg Documented by: Pantoprazole Sodium (Protonix) 40 mg PO BID [facility] Stop: 02/07/19 08:59 Last Admin: 01/19/19 08:58 Dose: 40 mg Documented by: Polyethylene Glycol (Miralax Powder Packet) 17 gm PO DAILY [facility] Stop: 02/07/19 08:59 Last Admin: 01/19/19 08:57 Dose: Not Given Documented by: Potassium Chloride (Klor-Con M10) 40 meq PO DAILY [facility] Stop: 02/08/19 10:29 Last Admin: 01/14/19 07:49 Dose: 40 meq Documented by: Prednisone (Prednisone) 40 mg PO DAILY [facility] Stop: 02/18/19 08:59 Last Admin: 01/19/19 08:55 Dose: 40 mg Documented by: Senna/Docusate Sodium (Senokot S) 1 tab PO DAILY PRN PRN Reason: Constipation Stop: 02/07/19 00:14 Sodium Biphosphate/Sodium Phosphate (Fleet Enema) 132 ml AK DAILY PRN PRN Reason: Constipation Stop: 02/07/19 00:14 Sodium Chloride (Otoe Nasal) 1 sprays NA PRN PRN PRN Reason: Dryness Stop: 02/09/19 21:59 Spironolactone (Aldactone) 50 mg PO BID17 [facility] Stop: 02/07/19 00:14 Last Admin: 01/19/19 08:57 Dose: 50 mg Documented by: Sucralfate (Carafate Tab) 1 gm PO QID [facility] Stop: 02/07/19 08:59 Last Admin: 01/19/19 12:40 Dose: 1 gm Documented by: Tamsulosin HCl (Flomax) 0.4 mg PO QAM [facility] Stop: 02/07/19 08:59 Last Admin: 01/19/19 08:58 Dose: 0.4 mg Documented by: Tiotropium [place] (Spiriva) 1 puffs INH DAILY [facility] Stop: 02/07/19 08:59 Last Admin: 01/19/19 08:59 Dose: 1 puffs Documented by: Torsemide (Demadex) 20 mg PO QAM [facility] Stop: 02/18/19 08:59 Warfarin Sodium (Coumadin) 12.5 mg PO DAILY@1600 [facility] Stop: 02/16/19 15:59 Last Admin: 01/19/19 15:29 Dose: 12.5 mg Documented by:
[2019-01-20] MEDS: LORazepam 1 MG/2 ML VIAL IV PRN ×3 (00:38→14:10)
[2019-01-20] MEDS ORDERED: HYDROmorphone INJ 0.5 MG/0.5 ML SYR IV STA (01:37)
[2019-01-20] MEDS ORDERED: HYDROmorphone INJ 1 MG/ML SYRINGE IV STA ×4 (03:33→15:47)
[2019-01-20] MEDS: OXYCODONE HCL IR 5 MG TAB (IMMEDIATE RELEASE) PO PRN ×5 (04:24→18:14)
[2019-01-20 06:33] LABS: Eosinophils # (auto) 0.05 K/uL (0-0.5); Eosinophils % (auto) 0.3 %; Hematocrit (blood only) 34.8 % (42-52); Hemoglobin 11.2 g/dL (14.0-18.0); Immature Granulocytes # (auto) 0.21 K/uL (0.00-0.02); Immature Granulocytes % (auto) 1.2 %; Lymphocytes # (auto) 3.52 K/uL (1.2-3.4); Lymphocytes % (auto) 19.8 %; Mean Corpuscular Hgb Conc 32.2 g/dL (32-36); Mean Corpuscular Volume 82.1 fL (80-100); Mean Platelet Volume 9.6 fL (7.4-10.4); Monocytes # (auto) 1.33 K/uL (0.11-0.59); Monocytes % (auto) 7.5 %; Neutrophils # (auto) 12.69 K/uL (1.4-6.5); Neutrophils % (auto) 71.2 %; Platelet Count 368 K/uL (130-400); RDW Coefficient of Variation 16.9 % (11.5-14.5); Red Blood Count 4.24 M/uL (4.7-6.1)
[2019-01-20] MEDS: ISOSORBIDE DINITRATE 10 MG TAB PO SCH ×2 (06:35→12:16)
[2019-01-20 06:44] LABS: INR 1.8 (0.9-1.1)
[2019-01-20 07:10] LABS: BUN Creatinine Ratio 25.7 (10-20); Creatinine Clr Calc Pharmacy 138.7 ml/min; Est GFR (African American) 84.9; Est GFR (Non-African American) 73.3; Potassium 4.3 mmol/L (3.5-5.1)
[2019-01-20] MEDS: INCRUSE ELLIPTA~ORDER AWAITING ACTION SCH ×2 (08:18→15:06)
[2019-01-20] MEDS: GABAPENTIN 600 MG TAB PO SCH ×2 (08:19→13:43)
[2019-01-20] MEDS: SUCRALFATE 1 GM TAB PO SCH ×3 (08:19→16:12)
[2019-01-20] MEDS: MAGNESIUM OXIDE 400 MG TAB PO SCH (08:19)
[2019-01-20] MEDS: DOCUSATE SODIUM 100 MG CAP PO SCH (08:19)
[2019-01-20] MEDS: AMOXICILLIN 500 MG CAP PO SCH (08:20)
[2019-01-20] MEDS: predniSONE 20 MG TAB PO SCH (08:20)
[2019-01-20] MEDS: METOPROLOL SUCC 25MG EXT REL TAB PO SCH (08:20)
[2019-01-20] MEDS: PANTOprazole 40 MG TAB PO SCH (08:20)
[2019-01-20] MEDS: metroNIDAZOLE 500 MG TAB PO SCH (08:21)
[2019-01-20] MEDS: SPIRONOLACTONE 25 MG TAB PO SCH ×2 (08:21→16:12)
[2019-01-20] MEDS: DULOXETINE HCL 60 MG CAP PO SCH (08:21)
[2019-01-20] MEDS: ASPIRIN 81 MG ECTAB PO SCH (08:22)
[2019-01-20] MEDS: TAMSULOSIN HCL 0.4 MG CAP PO SCH (08:22)
[2019-01-20] MEDS: LIDOCAINE 5% 1 PATCH TD SCH (08:24)
[2019-01-20] MEDS: MoRPHine SULFATE CR 15 MG TABCR PO SCH (08:24)
[2019-01-20] MEDS: NICOTINE 7 MG/24 HR TDSY TD SCH (08:26)
[2019-01-20] MEDS: TIOTROPIUM BROMIDE 5 PUFF/90 MCG INH INH SCH (08:27)
[2019-01-20] MEDS: POLYETHYLENE (MIRALAX) 17 GM PACK PO SCH (08:28)
[2019-01-20] MEDS: ONDANSETRON INJ 2 MG/ML 2 ML VIAL IV PRN (08:31)
[2019-01-20] MEDS: INSULIN ASPART 100 UNITS/ML 3 ML PEN SC SCH ×3 (08:35→18:15)
[2019-01-20] MEDS: FLUTICASONE PROPIONATE NA SPR 16 GM BTL SCH (08:36)
[2019-01-20] MEDS: INSULIN GLARGINE SOLOSTAR 100 UNITS/ML 3 ML PEN SC SCH (08:36)
[2019-01-20] MEDS: NYSTATIN POWDER 15GM BTL EXT SCH (08:36)
[2019-01-20] MEDS: BISMUTH SUBSALICYLATE SUSP PO SCH ×3 (08:46→16:14)
[2019-01-20] MEDS ORDERED: FINASTERIDE 5 MG TAB PO SCH (09:00)
[2019-01-20] MEDS ORDERED: TORSEMIDE 20 MG TAB PO SCH (09:00)
[2019-01-20] MEDS ORDERED: NovoLIN-N (NPH) PER UNIT CHARGE SQ ONE (09:00)
[2019-01-20] MEDS ORDERED: TORSEMIDE 10 MG TAB PO ONE (09:15)
--- NOTE | 2019-01-20 10:02 | Nephrology Progress Note ---
Date of Service January 20, 2019 Assessment & Plan (1) MAHAMED (acute kidney injury): Patient with acute kidney injury likely in setting of diuresis. He also has urinary retention and failed voiding trial 5/2. Creatinine at 1.1 from baseline of 1.1-1.2. Patient recently admitted with acute kidney injury with creatinine peak at 2.8 in setting of diuresis. He still has hypervolemia. Agree with continuing diuresis. Monitor with daily BMP. Patient needs strict input output. Continue fluid restriction to 1.8 L daily. Okay to give patient ice chips Continue fontaine catheter till urology follow up in the office. (2) Acute respiratory failure with hypoxia: Due to volume overload. he did not respond well to the reduced dose of torsemide. Will give 40mg today and change to 30mg daily from tomorrow. I think he can be discharged on the 30mg torsemide. Continue Aldactone 50 mg twice daily. Monitor daily weight and low-salt diet. (3) Hypokalemia: In setting of diuresis. k 4.3 today. Off kcl supplements. No need to restrict potassium in his diet. Subjective Patient seen in f/u for volume overload. has mild SOB. Not using oxygen during the day.Fontaine catheter was removed yesterday but patient had urinary retention and catheter had to be reinserted. He was net -1500 mL on 20 mg of torsemide. He is complaining of pain in the back. No vomiting or diarrhoea. Review of Systems Review of Systems: All systems reviewed & are unremarkable except as noted in HPI & below Physical Exam Physical Exam: General exam: Obese male, Appears comfortable, no acute distress HEENT: Pupils are equal and reactive to light Neck: No JVD, neck is supple trachea is midline Respiratory system: Clear breath sounds bilaterally. Gastrointestinal: Abdomen is soft, non distended, non tender, bowel sounds are present CVS: Regular rate and rhythm. No murmurs, rubs or gallops Musculoskeletal: No joint or muscle tenderness Extremities: Non tender, 1+ edema, peripheral pulses are present Neuro: Oriented, no tremors, no focal neurological deficits Skin: No rashes Results & Data Vital Signs (Past 12 Hours) Vital Signs Temp Pulse Resp BP Pulse Ox 01/20/19 07:49 36.8 C 73 16 122/74 95 01/19/19 23:00 36.9 C 81 18 128/77 96 Laboratory Results Laboratory Results - last 24 hr 01/19/19 01/19/19 01/19/19 11:41 16:48 20:02 WBC RBC Hgb Hct MCV MCH MCHC RDW Std Deviation RDW Coeff of Megan Plt Count MPV Immature Gran % (Auto) Neut % (Auto) Lymph % (Auto) [place] % (Auto) Eos % (Auto) Baso % (Auto) Immature Gran # (Auto) Neut # (Auto) Lymph # (Auto) [place] # (Auto) Eos # (Auto) Baso # (Auto) PT INR Sodium Potassium Chloride Carbon Dioxide Anion Gap BUN Creatinine Est Cr Clr Drug Dosing Est GFR ( Amer) Est GFR (Non-Af Amer) BUN/Creatinine Ratio Glucose POC Glucose 129 H 75 125 H Calcium 01/20/19 01/20/19 01/20/19 06:13 06:13 06:13 WBC 17.80 H RBC 4.24 L Hgb 11.2 L Hct 34.8 L MCV 82.1 MCH 26.4 MCHC 32.2 RDW Std Deviation 51.0 H RDW Coeff of Megan 16.9 H Plt Count 368 MPV 9.6 Immature Gran % (Auto) 1.2 Neut % (Auto) 71.2 Lymph % (Auto) 19.8 [place] % (Auto) 7.5 Eos % (Auto) 0.3 Baso % (Auto) 0.0 Immature Gran # (Auto) 0.21 H Neut # (Auto) 12.69 H Lymph # (Auto) 3.52 H [place] # (Auto) 1.33 H Eos # (Auto) 0.05 Baso # (Auto) 0.00 PT 18.0 H INR 1.8 H Sodium 134 L Potassium 4.3 Chloride 101 Carbon Dioxide 29 Anion Gap 4.0 BUN 30 H Creatinine 1.17 Est Cr Clr Drug Dosing 138.7 Est GFR ( Amer) 84.9 Est GFR (Non-Af Amer) 73.3 BUN/Creatinine Ratio 25.7 H Glucose 97 POC Glucose Calcium 9.0 01/20/19 07:44 WBC RBC Hgb Hct MCV MCH MCHC RDW Std Deviation RDW Coeff of Megan Plt Count MPV Immature Gran % (Auto) Neut % (Auto) Lymph % (Auto) [place] % (Auto) Eos % (Auto) Baso % (Auto) Immature Gran # (Auto) Neut # (Auto) Lymph # (Auto) [place] # (Auto) Eos # (Auto) Baso # (Auto) PT INR Sodium Potassium Chloride Carbon Dioxide Anion Gap BUN Creatinine Est Cr Clr Drug Dosing Est GFR ( Amer) Est GFR (Non-Af Amer) BUN/Creatinine Ratio Glucose POC Glucose 98 Calcium
--- NOTE | 2019-01-20 11:23 | Hospitalist Progress Note ---
Date of Service January 20, 2019 Assessment & Plan (1) Acute respiratory failure with hypoxia: This is a 48-year-old male with significant past medical history as mentioned in H&P who presents with shortness of breath and found to be hypoxic. Hypoxia. Likely secondary to acute on chronic diastolic heart failure, fluid overload and complicated by COPD Received Lasix 80 mg IV > transitioned to 40mg IV BID--> now 40mg IV daily Spironolactone continued Appreciate nephrology input and recommendation Creatinine seems to be at baseline Will DC intravenous Lasix and start torsemide 40 mg daily from 01/18 No symptoms of hypervolemia Discussed with bee farmer Advised to send him on 30 mg torsemide daily Chronic pain, continue his home pain medications. Patient reports increased pain in his lower back Will give one dose of IV Dilaudid for breakthrough pain today Appreciate pain management input and recommendation Will not provide any extra pain medications outside the recommendation from pain therapist Discussed with pain therapist and they will evaluate the patient tomorrow morning After she had pain therapist input and recommendation Has been getting IV Dilaudid for now 2 times daily-will not be given any IV pain medications on discharge Will continue with outpatient pain medications on discharge as prescribed Possible recurrence of pulmonary embolism D-dimer 4000s CT angiogram cannot be performed to lack of necessary IV line LE Doppler: negative for DVTs Has been on intravenous heparin and oral Coumadin INR 2.2 today 01/16 He has been getting 12.5 mg Coumadin daily INR is 1.8 today which has been increasing Will transfer the patient to heart site and recheck INR tomorrow Shortness of breath; continues to smoke Likely secondary to COPD exacerbation and possible recurrent pulmonary embolism Ultrasound of the legs negative for any DVT it was held because of recent surgery and also gastritis. Has been on Solu-Medrol and nebs S OB has been improving Advised to quit his smoking Recent history of foreign body of appendix, status post surgery. Pathology was not significant. History of hypertension, . He is on Toprol-XL and diuretics. Will monitor blood pressure. Last admission, his hydralazine and clonidine was stopped. Blood pressure on the lower side History of anemia. Stable around 10 Hypoventilation associated with obesity. Outpatient sleep study Nocturnal pulse ox when respiratory status stable Morbid obesity. Needs constant lifestyle changes. Benign prostatic hyperplasia. Continue his Flomax. -- patient reports retention at home Urology consulted Trial of voiding prior to discharge Lloyd has been discontinued may need to be reintroduced Additional medicine has been added for BPH Patient was seen and reevaluated by urologist Lloyd has been reinserted due to retention of the urine He will be followed up as an outpatient by urologist Diabetes, seems to be not on any medications at home. We will put him on diabetic diet. --Repeat A1c 6.6 Gastritis, he had hematemesis last admission. Continue Protonix b.i.d. and Carafate for 10 days. Positive H. pylori on last EGD Reported nausea with doxycycline Discussed with GI Dr. Lopez over the phone by the outgoing hospitalist, recommend amoxicillin 1000 twice a day and Flagyl 500 twice a day monitor, PPI twice a day Continue with current treatment for H. pylori Constipation. Continue his bowel regimen. Depression with anxiety. Continue his duloxetine. Deep venous thrombosis prophylaxis, coumadin Code status. Full code. Medically stable Discussed with the patient and the providers involved in the care He will be transferred to [facility] this afternoon Subjective 01/16 Patient is seen and examined medical floor He complains to have ongoing pain at the lower back and. Just seen by pain therapist this morning He has requested me to talk to the pain therapist to increase his pain medication Complaint history of shortness of breath on exertion Diabetes has been 01/17 Patient was seen and examined in the medical floor. He complains to have ongoing back pain and wants to have more food He denies any acute shortness of breath 01/18 Patient was seen and examined the medical floor He has been feeling better today and denies any significant symptoms He was seen by the pain therapist and also bee farmer and dietitian 01/19 Patient was seen and examined in the medical unit He remains stable for the last 2 days He has been asking for more antianxiety medications He has been getting his meals as per his choice Denies any significant pain 01/20 The patient was seen and examined in the medical floor He has had retention of urine last night and required 2 Times Straight cath Electronically required Lloyd catheter insertion He has been complaining of a lot of pain locally and also back pain this more He denies any increasing shortness of breath and/or swelling of the legs He will be going to heart side this afternoon Review of Systems Constitutional: + malaise and + weakness Respiratory: + cough; no dyspnea and no wheezing Genitourinary: + genital pain and + problem reported (Increasing pain in the urethra) Musculoskeletal: + back pain and + radicular pain Neurologic: + generalized weakness Physical Exam Physical Exam: In moderate distress Constitutional: well developed, well nourished and + morbidly obese Eyes: PERRL, conjunctivae normal, anicteric sclerae ENMT: external ear and nose normal, oropharynx normal Neck: trachea midline, no thyromegaly Respiratory: normal respiratory effort; no respiratory distress Auscultation: + diminished lung sounds and + crackles (Minimal crackles at the bases) Cardiovascular: Rate/Rhythm: regular rate and regular rhythm Heart Sounds: normal S1 and normal S2 Extremities: + edema (1-2+ bilaterally) Gastrointestinal (Abdomen): Inspection/Auscultation: + abdomen distended and normal bowel sounds Percussion/Palpation: abdomen soft; abdomen nontender Musculoskeletal: Spine: + lumbar spinal tenderness Lymphatic: no cervical or axillary lymphadenopathy Results & Data Vital Signs (Past 12 Hours) Vital Signs Temp Pulse Pulse Resp BP Pulse Ox 01/20/19 10:58 36.8 C 92 H 73 16 122/74 95 01/20/19 07:49 36.8 C 73 16 122/74 95 Laboratory Results Short CBC 01/20/19 Range/Units 06:13 WBC 17.80 H (4.8-10.8) K/uL Hgb 11.2 L (14.0-18.0) g/dL Hct 34.8 L (42-52) % Plt Count 368 (130-400) K/uL BMP 01/20/19 06:13 Sodium 134 L Potassium 4.3 Chloride 101 Carbon Dioxide 29 BUN 30 H Creatinine 1.17 Glucose 97 Calcium 9.0 Medications Administered Current Inpatient Medications Acetaminophen (Tylenol) 650 mg PO Q4H PRN PRN Reason: Pain or Fever Stop: 02/07/19 00:14 Albuterol (Ventolin Hfa) 2 puffs INH Q4H PRN PRN Reason: Wheezing Albuterol (Duoneb) 3 ml INH Q4H PRN PRN Reason: Shortness Of Breath Or Wheezing Stop: 02/07/19 00:14 Amoxicillin (Amoxil) 1,000 mg PO BID EMPERATRIZ Stop: 01/24/19 20:59 Last Admin: 01/20/19 08:20 Dose: 1,000 mg Documented by: Aspirin (Ecotrin Ectab) 81 mg PO QAM [facility] Stop: 02/07/19 08:59 Last Admin: 01/20/19 08:22 Dose: 81 mg Documented by: Bisacodyl (Dulcolax) 10 mg CA DAILY PRN PRN Reason: Constipation Stop: 02/07/19 00:14 Bismuth Subsalicylate (Pepto-Bismol) 524 mg PO QID [facility] Stop: 02/08/19 20:59 Last Admin: 01/20/19 08:46 Dose: 524 mg Documented by: Cyclobenzaprine HCl (Flexeril) 10 mg PO TID PRN PRN Reason: Muscle Spasm Stop: 02/07/19 00:14 Last Admin: 01/19/19 21:38 Dose: 10 mg Documented by: Dextrose (Dextrose 50%) 25 - 50 ml IV UD PRN; Protocol PRN Reason: Hypoglycemia Protocol Stop: 02/07/19 01:29 Docusate Sodium (Colace) 100 mg PO BID [facility] Stop: 02/07/19 08:59 Last Admin: 01/20/19 08:19 Dose: 100 mg Documented by: Duloxetine HCl (Cymbalta) 60 mg PO [facility] Stop: 02/07/19 08:59 Last Admin: 01/20/19 08:21 Dose: 60 mg Documented by: [facility]aster[facility] ([facility]) [facility] [place]: 02/19/19 08:59 Last Admin: 01/20/19 08:22 Dose: 5 mg Documented by: Fluticasone Propionate (Flonase) 2 sprays NA [facility] Stop: 02/07/19 08:59 Last Admin: 01/20/19 08:36 Dose: 2 sprays Documented by: Gabapentin (Neurontin) 600 mg PO TID [facility] Stop: 02/09/19 20:59 Last Admin: 01/20/19 08:19 Dose: 600 mg Documented by: Glucagon (Glucagen) 1 mg SQ UD PRN; Protocol PRN Reason: Hypoglycemia Protocol Stop: 02/07/19 01:29 Glucose (Glucose 40%) 15 - 30 gm PO UD PRN; Protocol PRN Reason: Hypoglycemia Protocol Stop: 02/07/19 01:29 Glucose (Dex4 Glucose) 4 - 8 tabs PO UD PRN; Protocol PRN Reason: Hypoglycemia Protocol Stop: 02/07/19 01:29 Hydroxyzine HCl (Vistaril) 25 mg PO QID PRN PRN Reason: Anxiety Stop: 02/07/19 00:14 Last Admin: 01/16/19 22:04 Dose: 25 mg Documented by: Lorazepam (Ativan) 1 mg in 2 mls @ 0.5 mls/min IV Q8H PRN PRN Reason: Anxiety/Agitation Stop: 02/18/19 14:21 Last Admin: 01/20/19 09:46 Dose: 0.5 mls/min Documented by: Insulin Aspart (Novolog Flexpen) 0 units SC ACHS [facility] Stop: 02/15/19 07:29 Last Admin: 01/20/19 08:35 Dose: 22 units Documented by: Insulin Glargine (Lantus Solostar Pen) 20 units SC QAM [facility] Stop: 02/16/19 08:59 Last Admin: 01/20/19 08:36 Dose: 20 units Documented by: Isosorbide Dinitrate (Isordil) 10 mg PO BID@0700,1200 [facility] Stop: 02/07/19 00:14 Last Admin: 01/20/19 06:35 Dose: 10 mg Documented by: Lidocaine (Lidoderm 5%) 3 patch TD DAILY [facility] Stop: 02/07/19 08:59 Last Admin: 01/20/19 08:24 Dose: Not Given Documented by: Magnesium Oxide (Mag-Ox) 400 mg PO BID [facility] Stop: 02/07/19 08:59 Last Admin: 01/20/19 08:19 Dose: 400 mg Documented by: Metoprolol Succinate (Toprol Xl) 25 mg PO Q12 [facility] Stop: 02/07/19 00:14 Last Admin: 01/20/19 08:20 Dose: 25 mg Documented by: Metronidazole (Flagyl) 500 mg PO BID [facility] Stop: 01/24/19 20:59 Last Admin: 01/20/19 08:21 Dose: 500 mg Documented by: Miscellaneous (Order Awaiting Action) 1 ea N/A QS [facility] Stop: 02/07/19 07:59 Last Admin: 01/20/19 08:18 Dose: Not Given Documented by: Miscellaneous (Carbohydrates For Hypoglycemia) 15 - 30 gm PO UD PRN PRN Reason: Hypoglycemia Treatment Stop: 02/07/19 01:29 Miscellaneous (Remove Nicoderm Patch) 1 ea N/A QAM [facility] Stop: 02/11/19 08:59 Last Admin: 01/20/19 08:26 Dose: 1 ea Documented by: Miscellaneous Information (Consult Glycemic Management Pharmacy) 1 ea N/A UD PRN PRN Reason: Consult Stop: 02/08/19 16:56 Morphine Sulfate (Ms Contin) 15 mg PO Q12 [facility] Stop: 01/22/19 00:14 Last Admin: 01/20/19 08:24 Dose: 15 mg Documented by: Nicotine (Nicoderm Cq) 7 mg TD QAM [facility] Stop: 02/07/19 08:59 Last Admin: 01/20/19 08:26 Dose: 7 mg Documented by: Nitroglycerin (Nitrostat) 0.4 mg SL UD PRN PRN Reason: Chest Pain Stop: 02/07/19 00:14 Nystatin (Mycostatin) 1 appln EXT BID [facility] Stop: 02/07/19 08:59 Last Admin: 01/20/19 08:36 Dose: Not Given Documented by: Ondansetron HCl (Zofran) 4 mg IV Q6H PRN PRN Reason: Nausea Stop: 02/07/19 00:14 Last Admin: 01/20/19 08:31 Dose: 4 mg Documented by: Ondansetron HCl (Zofran Odt) 4 mg PO Q4H PRN PRN Reason: Nausea And Vomiting Stop: 02/07/19 00:14 Last Admin: 01/08/19 17:21 Dose: 4 mg Documented by: Oxycodone HCl (Roxicodone Immediate Rel) 15 mg PO Q4H PRN PRN Reason: Pain Last Admin: 01/20/19 09:48 Dose: 15 mg Documented by: Pantoprazole Sodium (Protonix) 40 mg PO BID [facility] Stop: 02/07/19 08:59 Last Admin: 01/20/19 08:20 Dose: 40 mg Documented by: Polyethylene Glycol (Miralax Powder Packet) 17 gm PO DAILY [facility] Stop: 02/07/19 08:59 Last Admin: 01/20/19 08:28 Dose: Not Given Documented by: Potassium Chloride (Klor-Con M10) 40 meq PO DAILY [facility] Stop: 02/08/19 10:29 Last Admin: 01/14/19 07:49 Dose: 40 meq Documented by: Prednisone (Prednisone) 40 mg PO DAILY [facility] Stop: 02/18/19 08:59 Last Admin: 01/20/19 08:20 Dose: 40 mg Documented by: Senna/Docusate Sodium (Senokot S) 1 tab PO DAILY PRN PRN Reason: Constipation Stop: 02/07/19 00:14 Sodium Biphosphate/Sodium Phosphate (Fleet Enema) 132 ml CA DAILY PRN PRN Reason: Constipation Stop: 02/07/19 00:14 Sodium Chloride ([place] Nasal) 1 sprays NA PRN PRN PRN Reason: Dryness Stop: 02/09/19 21:59 Spironolactone (Aldactone) 50 mg PO BID17 [facility] Stop: 02/07/19 00:14 Last Admin: 01/20/19 08:21 Dose: 50 mg Documented by: Sucralfate (Carafate Tab) 1 gm PO QID [facility] Stop: 02/07/19 08:59 Last Admin: 01/20/19 08:19 Dose: 1 gm Documented by: Tamsulosin HCl (Flomax) 0.4 mg PO QAM [facility] Stop: 02/07/19 08:59 Last Admin: 01/20/19 08:22 Dose: 0.4 mg Documented by: Tiotropium [employer] (Spiriva) 1 puffs INH DAILY [facility] Stop: 02/07/19 08:59 Last Admin: 01/20/19 08:27 Dose: 1 puffs Documented by: Torsemide (Demadex) 30 mg PO QAM [facility] Stop: 02/20/19 08:59 Warfarin Sodium (Coumadin) 12.5 mg PO DAILY@1600 [facility] Stop: 02/16/19 15:59 Last Admin: 01/19/19 15:29 Dose: 12.5 mg Documented by:
[2019-01-20] MEDS: CYCLOBENZAPRINE HCL 10 MG TAB PO PRN (13:43)
[2019-01-20] MEDS ORDERED: WARFARIN SOD 2.5 MG TAB PO SCH (16:00)
[2019-01-20] MEDS ORDERED: WARFARIN SOD 10 MG TAB PO SCH (16:00)
[2019-01-20] MEDS ORDERED: HYDROmorphone INJ 2 MG/ML SYR/VIAL IV ONE (18:30)
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
[2019-01-21] MEDS ORDERED: TORSEMIDE 10 MG TAB PO SCH (09:00)
== END 2019-01-20 20:25 | DRG 291 ==
LOC: ED 17:22 → 2W 17:22 → SUATTDRO 01-08 19:08 → 4E 01-10 12:56

== ENCOUNTER 2019-01-22 20:11 | Inpatient (IN) ==
--- OUTSIDE RECORDS SUMMARY | 2019-01-22 20:15 | External Medical Summary | Continuity of Care Document ---
:1970 Author Name Nicole Lynn, Provider Address Unavailable Unavailable , Care Team Providers Name Role Phone Sandra Valencia Unavailable [email or web address] [email or web address] LEON M.D., Allen Barr Unavailable [email or web address] ROWE Unavailable [email or web address] Tyrell DELACRUZ Unavailable [email or web address] Ronan MURRELL Unavailable Unavailable Unavailable Unavailable Unavailable Problems Abdominal cramping (789.00) (R10.9) Lipoma (214.9) (D17.9) Belching (787.3) (R14.2) Nausea and vomiting in adult (787.01) (R11.2) Arthritis (716.90) (M19.90) Bronchitis (490) (J40) Diarrhea (787.91) (R19.7) Abdominal pain (789.00) (R10.9) Morbid obesity (278.01) (E66.01) Syncope and collapse (780.2) (R55) Constipation (564.00) (K59.00) Myalgia and myositis (729.1) Allergic rhinitis (477.9) (J30.9) Gallbladder sludge (575.8) (K82.8) Persistent insomnia (307.42) (G47.00) Chronic airway obstruction, mixed type (496) (J44.9) Current tobacco use (305.1) (Z72.0) Low back pain (724.2) (M54.5) Pain in extremity (729.5) (M79.609) Headache (784.0) (R51) Gross hematuria (599.71) (R31.0) Nephrolithiasis (592.0) (N20.0) Urinary retention (788.20) (R33.9) Right upper quadrant pain (789.01) (R10.11) Chronic migraine (346.70) (G43.709) Diabetes (250.00) (E11.9) Muscle spasm (728.85) (M62.838) Sacral radiculopathy (724.4) (M54.18) Idiopathic peripheral neuropathy (356.9) (G60.9) Extrusion of intervertebral disc (722.2) Chronic pain syndrome (338.4) (G89.4) Depression (311) (F32.9) Transient ischemic attack (435.9) (G45.9) H. pylori infection (041.86) (A04.8) Allergies and Adverse Reactions Depakote ER TB24 (Allergy) fentaNYL Citrate Powder (Allergy) Reacti on: Rash Medications Levalbuterol HCl - 1.25 MG/0.5ML Inhalat ion Nebulization Solution; BY INHALATION, Q6H NEEDED FOR SOB/ WHEEZING Refills: 0 Albuterol Sulfate HFA 108 MCG/ACT AERS; INHALE 2 PUFFS FOUR TIMES DAILY DIRECTED. Refills: 0 Polyethylene Glycol 3350 Oral Powder Refills: 0 Fluticasone Propionate 50 MCG/ACT Nasal Suspension; USE 2 SPRAYS IN EACH NOSTRIL TWICE DAILY. Refills: 0 Zofran 4 MG Oral Tablet; TAKE 4 TIMES DAILY NEEDED FOR NA USEA OR VOMITING. Refills: 0 Pantoprazole Sodium 40 MG Oral Tablet De layed Release; TAKE 1 TABLET Daily Take 30 minutes prior to breakfast. SOLEDAD Mcdonald Start: 07-Sep-2014 Quantity: 30 Refills: 5 Suboxone 8-2 MG SUBL; PLACE 2 TABLETS UNDER THE TONGUE ONCE DAILY. Refills: 0 Topiramate 50 MG Oral Tablet; Take 1 tablet daily for one week, then one bid Case, NUBIA Santillan Start: 08-Nov-2017 Quantity: 60 Refills: 1 Diclofenac Sodium 75 MG Oral Tablet Kira yed Release; one BID with food prn pain, as needed for headache, no more than 2-3 days a week Case, NUBIA Santillan Start: 08-Nov-2017 Quantity: 30 Refills: 1 Cyclobenzaprine HCl - 10 MG Oral Tablet; TAKE 1 TABLET BY MOUTH TWICE A DAY NEEDED FOR SPASM Shane Cisneros III Start: 09-Dec-2017 Quantity: 60 Refills: 3 DULoxetine HCl - 30 MG Oral Capsule Kira yed Release Particles; TAKE 1 CAPSULE DAILY IN THE EVENING Shane Cisneros III PEboni Start: 11-Jan-2018 Quantity: 30 Refills: 3 cloNIDine HCl - 0.1 MG Oral Tablet; Take 1 tablet twice kel y Refills: 0 oxyCODONE HCl - 10 MG Oral Tablet; TAKE 1 TABLET Every 6 toy rs PRN Start: 17-Nov-2018 Refills: 0 Morphine Sulfate 15 MG Oral Tablet; Take 1 tablet twice kel y Start: 17-Nov-2018 Refills: 0 Tamsulosin HCl - 0.4 MG Oral Capsule; TAKE 1 CAPSULE Daily Start: 27-Oct-2018 Quantity: 90 Refills: 3 Spiriva HandiHaler 18 MCG Inhalation Capsule; INHALE 1 CAPSU LE Daily Start: 27-Oct-2018 Refills: 0 Warfarin Sodium 6 MG Oral Tablet; TAKE 1 TABLET DAILY DIR ECTED. Start: 27-Oct-2018 Refills: 0 Aspirin 81 MG TABS; TAKE 1 TABLET DAILY. Start: 17-Nov-2018 Refills: 0 Spironolactone 50 MG Oral Tablet; TAKE 1 TABLET TWICE DAILY. Refills: 0 Sucralfate TABS; TAKE TABLET Refills: 0 diazePAM 5 MG Oral Tablet; TAKE 1 TAB 1 HOUR PRIOR TO PROCEDURE. JANUARY REPEAT DOSE PRN. 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 Shane Cisneros III PEboni Start: 06-Jan-2016 Refills: 0 Procedures H. Pylori Stool Antigen Date: 05-Jan-2019 History of Foot Surgery Status: Complete d History of Back Surgery Status: Complete d History of Colonoscopy (Fiberoptic) Stat us: Completed Immunizations Influenza Comments:denied Family History Grandmother Family history of diabetes mellitus (V18.0) (Z83.3) Status: Active Family history of hypertension (V17.49) (Z82.49) Status: Act anjel Family history of malignant neoplasm (V16.9) (Z80.9) Status: Active Family history of cardiac disorder (V17.49) (Z82.49) Status: Active Sister Family history of malignant neoplasm of breast (V16.3) (Z80. 3) Status: Active Grandfather Family history of cardiac disorder (V17.49) (Z82.49) Status: Active Father Family history of Aneurysm (442.9) (I72.9) Status: Active Mother Family history of Muscular aches (729.1) (M79.10) Status: Ac tive Social History - Smoking Status Current every day smoker Plan of Treatment Planned Observations Planned Goals not documented Results No Known Results Results not documented Encounters Appointment; Maribel Da Silva CRNP 05-Aug-2018 13:30 Encounter Diagnosis: Problem not documented Appointment; Reji Flor M.D. 25-Jul-2018 9:00 Encounter Diagnosis: Problem not documented Appointment; Juancarlos Boland PA-C 24-Jun-2018 9:00 Encounter Diagnosis: Problem not documented Appointment; Allen Cisneros III, M.D. 11-Jan-2018 11:30 Encounter Diagnosis: Problem not documented Appointment; Allen Cisneros III, M.D. 08-Dec-2017 14:00 Encounter Diagnosis: Problem not documented Appointment; Aarti Chapman PA-C 08-Nov-2017 13:30 Encounter Diagnosis: Problem not documented
[2019-01-22 20:41] LABS: Eosinophils # (auto) 0.24 K/uL (0-0.5); Eosinophils % (auto) 1.5 %; Hematocrit (blood only) 35.1 % (42-52); Immature Granulocytes # (auto) 0.18 K/uL (0.00-0.02); Immature Granulocytes % (auto) 1.2 %; Lymphocytes # (auto) 3.33 K/uL (1.2-3.4); Lymphocytes % (auto) 21.4 %; Mean Corpuscular Hgb Conc 31.3 g/dL (32-36); Mean Corpuscular Volume 84.6 fL (80-100); Monocytes # (auto) 1.26 K/uL (0.11-0.59); Monocytes % (auto) 8.1 %; Neutrophils # (auto) 10.56 K/uL (1.4-6.5); Neutrophils % (auto) 67.8 %; Platelet Count 355 K/uL (130-400); RDW Coefficient of Variation 17.3 % (11.5-14.5); RDW Standard Deviation 54.2 fL (36.4-46.3); Red Blood Count 4.15 M/uL (4.7-6.1); White Blood Count 15.57 K/uL (4.8-10.8)
[2019-01-22 20:53] LABS: Alanine Aminotransferase 39 U/L (12-78); Albumin Level 2.7 gm/dl (3.4-5.0); Aspartate Aminotransferase 16 U/L (15-37); BUN Creatinine Ratio 18.1 (10-20); Bilirubin Direct < 0.1 mg/dl (0-0.2); Blood Urea Nitrogen 20 mg/dl (7-18); Calcium 8.8 mg/dl (8.5-10.1); Carbon Dioxide 29 mmol/L (21-32); Chloride 106 mmol/L (98-107); Est GFR (African American) 90.5; Est GFR (Non-African American) 78.1; Glucose 114 mg/dl (70-99); Magnesium 2.1 mg/dl (1.8-2.4); Potassium 4.3 mmol/L (3.5-5.1); Sodium 140 mmol/L (136-145)
[2019-01-22 20:56] LABS: Albumin Globulin Ratio 0.9 (0.9-2); Alkaline Phosphatase 89 U/L (45-117); Bilirubin,Total 0.4 mg/dl (0.2-1); NT Pro B Type Natriuretic Pept 92 pg/ml (0-450); Phosphorus 4.1 mg/dl (2.5-4.9); Total Protein 5.7 gm/dl (6.4-8.2); Troponin I < 0.015 ng/ml (0-0.045)
[2019-01-22] MEDS ORDERED: ALBUT/IPRATROP 3MG/0.5MG NEB 3 ML VIAL NEB STA (20:56)
[2019-01-22] MEDS ORDERED: DEXAMETHASONE SOD PHOSPHATE 10 MG in SYRINGE 0 ML IV STA (20:56)
[2019-01-22] MEDS ORDERED: DEXAMETHASONE **PF** INJ 10 MG/ML VIAL ONE (21:01)
[2019-01-22 21:20] LABS: Base Excess VBG 4.5 mEq/L; Oxygen Saturation VBG 97.1 %; pH VBG 7.46 (7.36-7.41)
[2019-01-22 21:31] LABS: INR 1.2 (0.9-1.1); Prothrombin Time 12.6 Seconds (9.0-12.0)
[2019-01-22] MEDS ORDERED: OPTIRAY 320 125ml IV PRN (21:51)
--- NOTE | 2019-01-22 22:02 | CT Scan Report ---
CT ANGIOGRAM OF THE CHEST CLINICAL HISTORY: Atypical chest pain. COMPARISON STUDY: Chest CT scans dated 10/16/2018 and 12/29/2015. TECHNIQUE: Following the IV administration of 120 cc of Optiray 320, CT angiogram of the chest was pe rformed from the upper abdomen to the thoracic inlet utilizing the pulmonary embolus protocol. Images are reviewed in the axial, sagittal, and coronal planes. 3-D MIPS images are created and assessed. I V contrast was administered without complication. A dose lowering technique was utilized adhering to the principles of ALARA. The examination is degraded by large body habitus, and by streak artifact f rom the body wall abutting the CT gantry. CT DOSE: 970.86 mGy.cm FINDINGS: Thyroid: Imaged portions of the thyroid gland are normal in size and attenuation. Thoracic aorta: The thoracic aorta is normal in caliber and demonstrates standard 3-vessel arch anato my. No dissection is seen. Pulmonary vasculature: The pulmonary trunk is normal in caliber. There are nonocclusive segmental and subsegmental pulmonary emboli within branches of the right and left lower lobe pulmonary arteries. T hese were also seen on 10/16/2018. The volume of thrombus has somewhat decreased from previous. Right upper lobe pulmonary emboli seen previously have resolved. Heart: The heart is mildly enlarged and without pericardial effusion. Lungs and pleural spaces: There is bibasilar scarring/atelectasis. No airspace consolidation or pleur al effusion is identified. The trachea and central airways are clear. Mediastinum: There is no mediastinal lymphadenopathy. Rebekah: Clear. Axillae: There is no axillary lymphadenopathy. Upper abdomen: There is a small hiatal hernia. The liver is enlarged and steatotic. Skeletal structures: No lytic or blastic bony lesions are seen. IMPRESSION: 1. There are nonocclusive segmental and subsegmental pulmonary emboli within branches of the right an d left lower lobe pulmonary arteries. These were also seen on 10/16/2018. The volume of thrombus has d ecreased from previous. 2. There are foci of bibasilar scarring. No airspace consolidation or pleural effusion is identified. 3. Mild cardiac enlargement. 4. Hepatomegaly and hepatic steatosis. 5. Additional findings as above. Electronically signed by: Misael Lopez M.D. 01/22/2019 9:59 PM
--- NOTE | 2019-01-22 22:06 | XRay Report ---
SINGLE VIEW CHEST CLINICAL HISTORY: Atypical chest pain. FINDINGS: An AP, portable, upright chest radiograph is compared to study dated 01/09/2019 and correlat ed with chest CT performed the same day 01/22/2019. The examination is degraded by portable technique, large body habitus, and apical lordotic positioning. The heart is mildly enlarged. The pulmonary vas culature is noncongested. There is mild bibasilar scarring/atelectasis. The lungs and pleural spaces are otherwise clear. No pneumothorax is seen. The bony thorax is grossly intact. IMPRESSION: Mild cardiac enlargement with no acute cardiopulmonary abnormality. Electronically signed by: Misael Lopez M.D. 01/22/2019 10:04 PM
[2019-01-22] MEDS ORDERED: OXYCODONE HCL IR 5 MG TAB (IMMEDIATE RELEASE) PO STA ×2 (22:18→22:39)
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
[2019-01-23] MEDS ORDERED: POLYETHYLENE (MIRALAX) 17 GM PACK PO PRN (00:35)
[2019-01-23] MEDS ORDERED: ONDANSETRON 4 MG OD TAB PO PRN (00:35)
[2019-01-23] MEDS ORDERED: DOCUSATE SODIUM/SENNA 50/8.6MG TAB PO PRN (00:35)
[2019-01-23] MEDS ORDERED: MAGNESIUM HYDROXIDE PO PRN (00:35)
[2019-01-23] MEDS ORDERED: SOD PHOSPHATE/SOD BIPHOSPHATE ENEMA 132 ML BTL PR PRN (00:35)
[2019-01-23] MEDS ORDERED: ALBUT/IPRATROP 3MG/0.5MG NEB 3 ML VIAL INH PRN (00:35)
[2019-01-23] MEDS ORDERED: ALBUTEROL HFA 8 GM INHALER INH PRN (00:35)
[2019-01-23] MEDS ORDERED: ACETAMINOPHEN 325 MG TAB PO PRN (00:35)
[2019-01-23] MEDS ORDERED: NITROGLYCERIN SL 0.4 MG/TAB TAB SL PRN ×2 (00:35)
[2019-01-23] MEDS ORDERED: BISACODYL 10 MG SUPP PR PRN (00:35)
[2019-01-23] MEDS ORDERED: HYDROmorphone INJ 1 MG/ML SYRINGE IV STA ×2 (00:35→04:12)
[2019-01-23] MEDS: MoRPHine SULFATE CR 15 MG TABCR PO SCH ×3 (01:21→20:45)
[2019-01-23] MEDS: Heparin Adult LOW DOSE Wt-Based Dextrose 5% 25,000 units/500 mL IV SCH ×2 (02:01→20:51)
[2019-01-23 02:14] LABS: Basophils # (auto) 0.01 K/uL (0-0.2); Basophils % (auto) 0.1 %; Eosinophils # (auto) 0.02 K/uL (0-0.5); Eosinophils % (auto) 0.1 %; Hematocrit (blood only) 36.9 % (42-52); Immature Granulocytes # (auto) 0.15 K/uL (0.00-0.02); Lymphocytes # (auto) 1.01 K/uL (1.2-3.4); Lymphocytes % (auto) 6.6 %; Mean Corpuscular Volume 83.9 fL (80-100); Mean Platelet Volume 9.5 fL (7.4-10.4); Monocytes # (auto) 0.29 K/uL (0.11-0.59); Monocytes % (auto) 1.9 %; Neutrophils # (auto) 13.86 K/uL (1.4-6.5); Neutrophils % (auto) 90.3 %; Platelet Count 299 K/uL (130-400); RDW Coefficient of Variation 17.2 % (11.5-14.5); RDW Standard Deviation 53.1 fL (36.4-46.3); White Blood Count 15.34 K/uL (4.8-10.8)
[2019-01-23 02:16] LABS: Mean Corpuscular Hgb Conc 32.5 g/dL (32-36)
[2019-01-23 02:25] LABS: INR 1.4 (0.9-1.1); Partial Thromboplastin Ratio 0.9; Partial Thromboplastin Time 24.2 Seconds (21.0-31.0); Prothrombin Time 14.1 Seconds (9.0-12.0)
[2019-01-23] MEDS: OXYCODONE HCL IR 5 MG TAB (IMMEDIATE RELEASE) PO PRN ×5 (02:53→20:45)
[2019-01-23] MEDS: ONDANSETRON INJ 2 MG/ML 2 ML VIAL IV PRN ×3 (03:13→18:24)
[2019-01-23] MEDS: TRAMADOL HCL 50 MG TABLET PO PRN ×4 (03:45→22:13)
[2019-01-23] MEDS: LORazepam 1 MG TAB PO PRN ×3 (04:29→22:15)
[2019-01-23] MEDS: ISOSORBIDE DINITRATE 10 MG TAB PO SCH ×2 (06:18→11:46)
[2019-01-23] MEDS: Heparin IV Low Dose *NO* Bolus IV SCH ×2 (06:47→06:48)
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
[2019-01-23 07:11] LABS: Basophils # (auto) 0.01 K/uL (0-0.2); Basophils % (auto) 0.1 %; Hematocrit (blood only) 35.8 % (42-52); Hemoglobin 11.4 g/dL (14.0-18.0); Immature Granulocytes # (auto) 0.13 K/uL (0.00-0.02); Immature Granulocytes % (auto) 0.8 %; Lymphocytes # (auto) 1.03 K/uL (1.2-3.4); Lymphocytes % (auto) 6.5 %; Mean Corpuscular Hgb Conc 31.8 g/dL (32-36); Mean Corpuscular Volume 83.8 fL (80-100); Mean Platelet Volume 9.7 fL (7.4-10.4); Monocytes # (auto) 0.41 K/uL (0.11-0.59); Monocytes % (auto) 2.6 %; Platelet Count 304 K/uL (130-400); Red Blood Count 4.27 M/uL (4.7-6.1); White Blood Count 15.78 K/uL (4.8-10.8)
[2019-01-23 07:27] LABS: INR 1.5 (0.9-1.1); Prothrombin Time 14.6 Seconds (9.0-12.0)
[2019-01-23 07:39] LABS: BUN Creatinine Ratio 19.4 (10-20); Blood Urea Nitrogen 20 mg/dl (7-18); Calcium 9.4 mg/dl (8.5-10.1); Carbon Dioxide 29 mmol/L (21-32); Chloride 104 mmol/L (98-107); Creatinine Clr Calc Pharmacy 160.4 ml/min; Est GFR (African American) 101.5; Est GFR (Non-African American) 87.5; Glucose 149 mg/dl (70-99); Magnesium 2.3 mg/dl (1.8-2.4); Potassium 5.1 mmol/L (3.5-5.1); Sodium 136 mmol/L (136-145); Troponin I < 0.015 ng/ml (0-0.045)
[2019-01-23] MEDS: TORSEMIDE 10 MG TAB PO SCH (08:15)
[2019-01-23] MEDS: POTASSIUM CHLORIDE 20 MEQ TABCR PO SCH (08:15)
[2019-01-23] MEDS: DULOXETINE HCL 60 MG CAP PO SCH (08:15)
[2019-01-23] MEDS: GABAPENTIN 300 MG CAP PO SCH ×3 (08:15→20:44)
[2019-01-23] MEDS: MAGNESIUM OXIDE 400 MG TAB PO SCH (08:15)
[2019-01-23] MEDS: ASPIRIN 81 MG ECTAB PO SCH (08:15)
[2019-01-23] MEDS: LIDOCAINE 5% 1 PATCH TD SCH (08:15)
[2019-01-23] MEDS: METOPROLOL SUCC 25MG EXT REL TAB PO SCH ×2 (08:15→20:45)
[2019-01-23] MEDS: TAMSULOSIN HCL 0.4 MG CAP PO SCH (08:15)
[2019-01-23] MEDS: FINASTERIDE 5 MG TAB PO SCH (08:16)
[2019-01-23] MEDS: POLYETHYLENE (MIRALAX) 17 GM PACK PO SCH (08:16)
[2019-01-23] MEDS: NICOTINE 7 MG/24 HR TDSY TD SCH (08:16)
[2019-01-23] MEDS: DOCUSATE SODIUM 100 MG CAP PO SCH ×2 (08:16→20:46)
[2019-01-23] MEDS: PANTOprazole 40 MG TAB PO SCH ×2 (08:16→20:47)
[2019-01-23] MEDS: NYSTATIN POWDER 15GM BTL EXT SCH ×2 (08:17→20:47)
[2019-01-23] MEDS: FLUTICASONE PROPIONATE NA SPR 16 GM BTL SCH (08:17)
[2019-01-23] MEDS: SPIRONOLACTONE 25 MG TAB PO SCH ×2 (08:18→15:52)
[2019-01-23] MEDS: predniSONE 10 MG TABLET PO SCH (08:20)
[2019-01-23 08:23] LABS: Partial Thromboplastin Time 28.1 Seconds (21.0-31.0)
[2019-01-23] MEDS ORDERED: GLUCOSE 40% GEL 15 GM TUBE PO PRN (08:45)
[2019-01-23] MEDS ORDERED: CARBOHYDRATES FOR HYPOGLYCEMIA PO PRN (08:45)
[2019-01-23] MEDS ORDERED: GLUCOSE 10 TABS/TUBE PO PRN (08:45)
[2019-01-23] MEDS ORDERED: GLUCAGON FOR INJ 1 MG VIAL IM PRN (08:45)
[2019-01-23] MEDS ORDERED: DEXTROSE 50% 50 ML SYRINGE IV PRN (08:45)
[2019-01-23] MEDS ORDERED: HEPARIN IV BOLUS 4,500 UNITS in SYRINGE 0 ML IV ONE ×3 (08:45→22:45)
[2019-01-23] MEDS: INSULIN ASPART 100 UNITS/ML 3 ML PEN SC SCH ×4 (08:46→20:50)
[2019-01-23] MEDS ORDERED: BISMUTH SUBSALICYLATE 262 MG CHEW PO SCH (09:00)
[2019-01-23] MEDS ORDERED: HYDROmorphone INJ 2 MG/ML SYR/VIAL ONE (11:01)
[2019-01-23] MEDS: CYCLOBENZAPRINE HCL 10 MG TAB PO PRN ×2 (13:08→22:15)
[2019-01-23 14:16] LABS: Partial Thromboplastin Ratio 1.4
--- NOTE | 2019-01-23 15:48 | Hospitalist Progress Note ---
Date of Service January 23, 2019 Assessment & Plan (1) Chest pain: Admitted with chest pain without any associated symptoms Serial cardiac enzymes have been negative No significant EKG change We will continue with current medications for heart Present on Admission?: Yes (2) Chronic pain: Has chronic back pain with radiculopathy as mentioned below He has been on MS Contin, Roxicodone, Ultram regularly as per the pain therapist He was getting Dilaudid IV twice daily during recent admission and will continue that for now Like to go back to skilled care facility when accepted (3) Chronic pulmonary embolism: Has history of pulmonary embolism on Coumadin INR is subtherapeutic to 1.2 Has been started on intravenous heparin and Coumadin will be given Monitor INR (4) Lumbar radicular pain: (5) Urinary retention: Continue Lloyd catheter Continue Flomax (6) Chronic diastolic CHF (congestive heart failure): No evidence of acute CHF at this time We will continue with oral torsemide and splenectomy (7) Subtherapeutic international normalized ratio (INR): As above Other significant medical conditions remained stable We will continue his usual medication as an outpatient DVT prophylaxis with heparin and Coumadin CODE STATUS-full Subjective 01/23 Patient was seen and examined in medical telemetry unit He was discharged one Wednesday evening and back last night with chest pain and back pain with radiculopathy Apparently he did not get his usual medication [place] [facility] [place] was crying with pain during examination but remained hemodynamically stable with unremarkable labs for ACS Review of Systems Review of Systems: All systems reviewed and are unremarkable except as noted below Constitutional: + fatigue, + weakness and + problem reported (Increasing pain at the back with radiculopathy) Cardiovascular: Additional Comments: Denies any chest pain during examination Physical Exam 2 Physical Exam: Crying with pain Constitutional: well developed, + morbidly obese and + obese Eyes: PERRL, conjunctivae normal, anicteric sclerae ENMT: external ear and nose normal, oropharynx normal Neck: trachea midline, no thyromegaly Respiratory: normal respiratory effort; no respiratory distress and no labored breathing Auscultation: + diminished lung sounds and + crackles (Minimal crackles at the bases) Cardiovascular: Rate/Rhythm: regular rate and regular rhythm Heart Sounds: normal S1 and normal S2; no murmur Gastrointestinal (Abdomen): Inspection/Auscultation: + abdomen distended Percussion/Palpation: abdomen soft; abdomen nontender Musculoskeletal: Spine: + lumbar spinal tenderness Neurologic: Alert, 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 Results & Data Vital Signs (Past 12 Hours) Vital Signs Temp Pulse Pulse Pulse Resp BP Pulse Ox 01/23/19 15:15 37.0 C 99 H 16 157/74 H 94 01/23/19 11:32 36.8 C 90 19 169/76 H 96 01/23/19 08:07 36.5 C 73 20 143/62 H 92 01/23/19 06:29 80 01/23/19 04:26 37.1 C 87 17 163/78 H 94 Laboratory Results Short CBC 01/22/19 01/23/19 01/23/19 Range/Units 20:18 02:05 06:45 WBC 15.57 H 15.34 H 15.78 H (4.8-10.8) K/uL Hgb 11.0 L 12.0 L 11.4 L (14.0-18.0) g/dL Hct 35.1 L 36.9 L 35.8 L (42-52) % Plt Count 355 299 304 (130-400) K/uL BMP 01/22/19 01/23/19 20:18 06:45 Sodium 140 136 Potassium 4.3 5.1 D Chloride 106 104 Carbon Dioxide 29 29 BUN 20 H 20 H Creatinine 1.11 1.01 Glucose 114 H 149 H Calcium 8.8 9.4 Cardiac Enzymes 01/22/19 01/23/19 01/23/19 Range/Units 20:18 01:03 06:45 Troponin I < 0.015 < 0.015 < 0.015 (0-0.045) ng/ml 01/23/19 Range/Units 12:59 Troponin I < 0.015 (0-0.045) ng/ml Liver Function 01/22/19 01/22/19 Range/Units 20:18 20:18 Total Bilirubin 0.4 (0.2-1) mg/dl Direct Bilirubin < 0.1 Cancelled (0-0.2) mg/dl AST 16 (15-37) U/L ALT 39 (12-78) U/L Alkaline Phosphatase 89 (45-117) U/L Albumin 2.7 L (3.4-5.0) gm/dl Medications Administered Current Inpatient Medications Acetaminophen (Tylenol) 650 mg PO Q4H PRN PRN Reason: Pain or Fever Stop: 02/22/19 00:34 Albuterol (Ventolin Hfa) 2 puffs INH Q4H PRN PRN Reason: Wheezing Albuterol (Duoneb) 3 ml INH Q4H PRN PRN Reason: Shortness Of Breath Or Wheezing Stop: 02/22/19 00:34 [facility]irin ([facility]) [facility] Stop: 02/22/19 08:59 Last Admin: 01/23/19 08:15 Dose: 81 mg Documented by: Bisacodyl (Dulcolax) 10 mg NV UD PRN PRN Reason: Constipation Stop: 02/22/19 00:34 Cyclobenzaprine HCl (Flexeril) 10 mg PO TID PRN PRN Reason: Muscle Spasm Stop: 02/22/19 00:34 Last Admin: 01/23/19 13:08 Dose: 10 mg Documented by: Dextrose (Dextrose 50%) 25 - 50 ml IV UD PRN; Protocol PRN Reason: Hypoglycemia Protocol Stop: 02/22/19 08:44 Docusate Sodium (Colace) 100 mg PO BID [facility] Stop: 02/22/19 08:59 Last Admin: 01/23/19 08:16 Dose: 100 mg Documented by: Duloxetine HCl (Cymbalta) [facility] [place] Stop: 02/22/19 08:59 Last Admin: 01/23/19 08:15 Dose: 60 mg Documented by: Finasteride (Proscar) 5 mg PO QAM [facility] Stop: 02/22/19 08:59 Last Admin: 01/23/19 08:16 Dose: 5 mg Documented by: Fluticasone Propionate (Flonase) 1 sprays NA QAM [facility] Stop: 02/22/19 08:59 Last Admin: 01/23/19 08:17 Dose: 1 sprays Documented by: Gabapentin (Neurontin) 300 mg PO TID [facility] Stop: 02/22/19 08:59 Last Admin: 01/23/19 13:35 Dose: 300 mg Documented by: Glucagon (Glucagen) 1 mg IM UD PRN; Protocol PRN Reason: Hypoglycemia Protocol Stop: 02/22/19 08:44 Glucose (Glucose 40%) 15 - 30 gm PO UD PRN; Protocol PRN Reason: Hypoglycemia Protocol Stop: 02/22/19 08:44 Glucose (Dex4 Glucose) 4 - 8 tabs PO UD PRN; Protocol PRN Reason: Hypoglycemia Protocol Stop: 02/22/19 08:44 Hydromorphone HCl (Dilaudid) 1.5 mg IV 1000,1900 [facility] Stop: 02/06/19 18:59 Hydroxyzine HCl (Vistaril) 25 mg PO QID PRN PRN Reason: Anxiety Stop: 02/22/19 00:34 Heparin Sodium/Dextrose (Heparin Sodium/Dextrose) 25,000 units in 500 mls @ 30 mls/hr IV .[id number] [facility]; Protocol Stop: 02/22/19 01:29 Last Titration: 01/23/19 14:57 Dose: 1,500 units/hr, 30 mls/hr Documented by: Insulin Aspart (Novolog Flexpen) 0 units SC ACHS [facility] Stop: 02/22/19 11:29 Last Admin: 01/23/19 13:03 Dose: 9 units Documented by: Isosorbide Dinitrate (Isordil) 10 mg PO BID@0700,1200 [facility] Stop: 02/22/19 06:59 Last Admin: 01/23/19 11:46 Dose: 10 mg Documented by: Lidocaine (Lidoderm 5%) 3 patch TD DAILY [facility] Stop: 02/22/19 08:59 Last Admin: 01/23/19 08:15 Dose: Not Given Documented by: Lorazepam (Ativan) 1 mg PO Q8H PRN PRN Reason: Anxiety Stop: 02/22/19 00:34 Last Admin: 01/23/19 13:11 Dose: 1 mg Documented by: Magnesium Oxide (Mag-Ox) 400 mg PO QAM [facility] Stop: 02/22/19 08:59 Last Admin: 01/23/19 08:15 Dose: 400 mg Documented by: Metoprolol Succinate (Toprol Xl) 25 mg PO BID [facility] Stop: 02/22/19 08:59 Last Admin: 01/23/19 08:15 Dose: 25 mg Documented by: Miscellaneous (Remove Lidoderm Patch) 1 ea N/A DAILY@2100 [facility] Stop: 02/22/19 00:34 Last Admin: 01/23/19 01:18 Dose: Not Given Documented by: Miscellaneous (Order Awaiting Action) 1 ea N/A QS [facility] Stop: 02/22/19 07:59 Last Admin: 01/23/19 06:49 Dose: Not Given Documented by: Miscellaneous (Remove Nicoderm Patch) 1 ea N/A HS [facility] Stop: 02/22/19 00:34 Last Admin: 01/23/19 01:18 Dose: Not Given Documented by: Miscellaneous (Carbohydrates For Hypoglycemia) 15 - 30 gm PO UD PRN PRN Reason: Hypoglycemia Treatment Stop: 02/22/19 08:44 Morphine Sulfate (Ms Contin) 15 mg PO Q12 [facility] Stop: 02/06/19 00:34 Last Admin: 01/23/19 08:14 Dose: 15 mg Documented by: Nicotine (Nicoderm Cq) 7 mg TD QAM [facility] Stop: 02/22/19 08:59 Last Admin: 01/23/19 08:16 Dose: 7 mg Documented by: Nitroglycerin (Nitrostat) 0.4 mg SL UD PRN PRN Reason: Chest Pain Stop: 02/22/19 00:34 Non-Formulary Medication (Magnesium Hydroxide [Milk Of Magnesia Concentrated]) 30 ml PO Q12H PRN PRN Reason: Constipation Stop: 02/22/19 00:34 Nystatin (Mycostatin) 1 appln EXT BID [facility] Stop: 02/22/19 08:59 Last Admin: 01/23/19 08:17 Dose: 1 appln Documented by: Ondansetron HCl (Zofran Odt) 4 mg PO Q4H PRN PRN Reason: Nausea And Vomiting Stop: 02/22/19 00:34 Ondansetron HCl (Zofran) 4 mg IV Q6H PRN PRN Reason: Nausea Stop: 02/22/19 00:34 Last Admin: 01/23/19 13:11 Dose: 4 mg Documented by: Oxycodone HCl (Roxicodone Immediate Rel) 15 mg PO Q4H PRN PRN Reason: Pain Stop: 02/06/19 00:34 Last Admin: 01/23/19 11:45 Dose: 15 mg Documented by: Pantoprazole Sodium (Protonix) 40 mg PO BID [facility] Stop: 02/22/19 08:59 Last Admin: 01/23/19 08:16 Dose: 40 mg Documented by: Polyethylene Glycol (Miralax Powder Packet) 17 gm PO DAILY PRN PRN Reason: Constipation Stop: 02/22/19 00:34 Polyethylene Glycol (Miralax Powder Packet) 17 gm PO Q24H [facility] Stop: 02/22/19 08:59 Last Admin: 01/23/19 08:16 Dose: Not Given Documented by: Potassium Chloride (Klor-Con M20) 20 meq PO DAILY [facility] Stop: 02/22/19 08:59 Last Admin: 01/23/19 08:15 Dose: 20 meq Documented by: Prednisone (Prednisone) 30 mg PO DAILY [facility]; Taper Stop: 02/05/19 08:59 Last Admin: 01/23/19 08:20 Dose: 30 mg Documented by: Senna/Docusate Sodium (Senokot S) 1 tab PO .Q24H PRN PRN Reason: Constipation Stop: 02/22/19 00:34 Sodium Biphosphate/Sodium Phosphate (Fleet Enema) 133 ml NV UD PRN PRN Reason: Constipation Stop: 02/22/19 00:34 Spironolactone (Aldactone) 50 mg PO BID17 [facility] Stop: 02/22/19 08:59 Last Admin: 01/23/19 08:18 Dose: 50 mg Documented by: Tamsulosin HCl (Flomax) 0.4 mg PO QAM [facility] Stop: 02/22/19 08:59 Last Admin: 01/23/19 08:15 Dose: 0.4 mg Documented by: Torsemide (Demadex) 30 mg PO QAM [facility] Stop: 02/22/19 08:59 Last Admin: 01/23/19 08:15 Dose: 30 mg Documented by: Tramadol HCl (Ultram) 50 mg PO Q6H PRN PRN Reason: Pain Stop: 02/22/19 00:34 Last Admin: 01/23/19 10:28 Dose: 50 mg Documented by: Warfarin Sodium (Coumadin) 10 mg PO DAILY@1600 [facility] Stop: 02/22/19 15:59 Warfarin Sodium (Coumadin) 15 mg PO DAILY@1600 [facility] Stop: 01/23/19 16:01 (1) Chest pain Chest pain type: unspecified Qualified Code(s): R07.9 - Chest pain, unspecified (2) Chronic pain Chronic pain type: other chronic pain Qualified Code(s): G89.29 - Other chronic pain (3) Chronic pulmonary embolism Acute cor pulmonale presence: without acute cor pulmonale Pulmonary embolism type: unspecified Qualified Code(s): I27.82 - Chronic pulmonary embolism
[2019-01-23] MEDS ORDERED: WARFARIN SOD 10 MG TAB PO SCH (16:00)
[2019-01-23] MEDS ORDERED: WARFARIN SOD 10 MG TAB PO ONE (16:00)
[2019-01-23] MEDS: HYDROmorphone INJ 2 MG/ML SYR/VIAL IV SCH (19:13)
[2019-01-23] MEDS ORDERED: HYDROmorphone INJ 0.5 MG/0.5 ML SYR IV STA (22:03)
[2019-01-23 22:25] LABS: Partial Thromboplastin Ratio 1.6; Partial Thromboplastin Time 42.7 Seconds (21.0-31.0)
[2019-01-24] MEDS: OXYCODONE HCL IR 5 MG TAB (IMMEDIATE RELEASE) PO PRN ×5 (00:46→15:50)
[2019-01-24] MEDS: TRAMADOL HCL 50 MG TABLET PO PRN ×2 (04:22→10:31)
[2019-01-24 06:25] LABS: Partial Thromboplastin Ratio 2.4; Prothrombin Time 19.3 Seconds (9.0-12.0)
[2019-01-24 06:31] LABS: Partial Thromboplastin Time 64.2 Seconds (21.0-31.0)
[2019-01-24] MEDS: ISOSORBIDE DINITRATE 10 MG TAB PO SCH ×2 (06:31→08:51)
[2019-01-24] MEDS: CYCLOBENZAPRINE HCL 10 MG TAB PO PRN (06:32)
[2019-01-24 07:58] VITALS: TEMP 98.1
[2019-01-24] MEDS: MoRPHine SULFATE CR 15 MG TABCR PO SCH ×2 (08:36→17:07)
[2019-01-24] MEDS: INSULIN ASPART 100 UNITS/ML 3 ML PEN SC SCH ×2 (08:38→12:25)
[2019-01-24] MEDS: LIDOCAINE 5% 1 PATCH TD SCH (08:38)
[2019-01-24] MEDS: FLUTICASONE PROPIONATE NA SPR 16 GM BTL SCH (08:41)
[2019-01-24] MEDS: NICOTINE 7 MG/24 HR TDSY TD SCH (08:42)
[2019-01-24] MEDS: NYSTATIN POWDER 15GM BTL EXT SCH (08:42)
[2019-01-24] MEDS: POLYETHYLENE (MIRALAX) 17 GM PACK PO SCH (08:42)
[2019-01-24] MEDS: SPIRONOLACTONE 25 MG TAB PO SCH ×2 (08:49→17:09)
[2019-01-24] MEDS: POTASSIUM CHLORIDE 20 MEQ TABCR PO SCH (08:49)
[2019-01-24] MEDS: predniSONE 10 MG TABLET PO SCH (08:50)
[2019-01-24] MEDS: TORSEMIDE 10 MG TAB PO SCH (08:50)
[2019-01-24] MEDS: MAGNESIUM OXIDE 400 MG TAB PO SCH (08:50)
[2019-01-24] MEDS: FINASTERIDE 5 MG TAB PO SCH (08:50)
[2019-01-24] MEDS: TAMSULOSIN HCL 0.4 MG CAP PO SCH (08:50)
[2019-01-24] MEDS: ASPIRIN 81 MG ECTAB PO SCH (08:50)
[2019-01-24] MEDS: DOCUSATE SODIUM 100 MG CAP PO SCH (08:51)
[2019-01-24] MEDS: METOPROLOL SUCC 25MG EXT REL TAB PO SCH (08:51)
[2019-01-24] MEDS: DULOXETINE HCL 60 MG CAP PO SCH (08:51)
[2019-01-24] MEDS: GABAPENTIN 300 MG CAP PO SCH ×2 (08:51→14:20)
[2019-01-24] MEDS: PANTOprazole 40 MG TAB PO SCH (08:51)
[2019-01-24] MEDS: HYDROmorphone INJ 2 MG/ML SYR/VIAL IV SCH (08:56)
[2019-01-24] MEDS: ONDANSETRON INJ 2 MG/ML 2 ML VIAL IV PRN (08:56)
[2019-01-24] MEDS ORDERED: HYDROmorphone INJ 1 MG/ML SYRINGE IV ONE (12:19)
--- NOTE | 2019-01-24 13:02 | Hospitalist Progress Note ---
Date of Service January 24, 2019 Assessment & Plan (1) Chest pain: Admitted with chest pain without any associated symptoms Serial cardiac enzymes have been negative No significant EKG change We will continue with current medications for heart No more chest pain and ACS has been ruled out (2) Chronic pain: Exacerbation of chronic pain in setting of missed medication Has chronic back pain with radiculopathy as mentioned below He has been on MS Contin, Roxicodone, Ultram regularly as per the pain therapist He was getting Dilaudid IV twice daily during recent admission and will continue that for now Has been complaining of more pain in the hospital and requiring intravenous Dilaudid which was initially recommended by pain therapist Seems to be reasonably stable as of today Discussed with Dr. Cisneros who wanted to see him as an outpatient for his back pain and radiculopathy for possible further testing if needed Will increase his Roxicodone 1 more dose over 24 hours for better pain control on discharge (3) Chronic pulmonary embolism: Has history of pulmonary embolism on Coumadin INR is subtherapeutic to 1.2 Has been started on intravenous heparin and Coumadin will be given Monitor INR-2.0 today 01/24 (4) Lumbar radicular pain: (5) Urinary retention: Continue Lloyd catheter Continue Flomax (6) Chronic diastolic CHF (congestive heart failure): No evidence of acute CHF at this time We will continue with oral torsemide and Spironolactone (7) Subtherapeutic international normalized ratio (INR): As above Received additional dose of Coumadin on 01/23 INR has been therapeutic at 2.0 today Other significant medical conditions remained stable We will continue his usual medication as an outpatient DVT prophylaxis with heparin and Coumadin CODE STATUS-full Discussed with the patient in detail If LFTs are normal will arrange ultrasound as an outpatient as per PCP rec ommendation If physical therapy recommends that he can go home he will be discharged home this afternoon His pain medication will be increased 1 more dose of oral oxycodone on discharge if he goes today. He will be discharged home under [facility] medical home team. Subjective 01/23 Patient was seen and examined in medical telemetry unit He was discharged one Wednesday evening and back last night with chest pain and back pain with radiculopathy Apparently he did not get his usual medication while at the [facility] He was crying with pain during examination but remained hemodynamically stable with unremarkable labs for ACS 01/24 The patient was seen and examined the medical telemetry unit He seems to be stable in bed but complains to have increasing pain at the back w ith radiculopathy, no new abdominal pain right upper quadrant, shortness of breath and chest tightness Denies any more chest pain and increased cardiac enzymes and EKG unremarkable for any ACS We will get physical therapy today and if recommended to go home he will be discharged this afternoon He will have LFTs and if elevated will ask for ultrasound of the gallbladder before he goes home He remains medically stable Review of Systems Review of Systems: All systems reviewed and are unremarkable except as noted below Respiratory: no dyspnea Gastrointestinal: + abdominal pain (Right upper quadrant) and + bloating Physical Exam Physical Exam: No apparent distress at rest Constitutional: well developed, + morbidly obese and + obese Eyes: PERRL, conjunctivae normal, anicteric sclerae ENMT: external ear and nose normal, oropharynx normal Neck: trachea midline, no thyromegaly Respiratory: normal respiratory effort; no respiratory distress and no labored breathing Auscultation: + diminished lung sounds and + crackles (Minimal crackles at the bases) Cardiovascular: Rate/Rhythm: regular rate and regular rhythm Heart Sounds: normal S1 and normal S2; no murmur Gastrointestinal (Abdomen): Inspection/Auscultation: + abdomen distended Percussion/Palpation: abdomen soft; abdomen nontender Musculoskeletal: Spine: + lumbar spinal tenderness Neurologic: Alert, 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. Lymphatic: no cervical or axillary lymphadenopathy Results & Data Vital Signs (Past 12 Hours) Vital Signs Temp Pulse Resp BP BP Pulse Ox 01/24/19 07:57 36.7 C 76 20 142/80 H 100 01/24/19 04:41 36.5 C 84 20 152/94 H 98 Laboratory Results Cardiac Enzymes 01/23/19 Range/Units 12:59 Troponin I < 0.015 (0-0.045) ng/ml Medications Administered Current Inpatient Medications Acetaminophen (Tylenol) 650 mg PO Q4H PRN PRN Reason: Pain or Fever Stop: 02/22/19 00:34 Albuterol (Ventolin Hfa) 2 puffs INH Q4H PRN PRN Reason: Wheezing Albuterol (Duoneb) 3 ml INH Q4H PRN PRN Reason: Shortness Of Breath Or Wheezing Stop: 02/22/19 00:34 Aspirin (Ecotrin Ectab) 81 mg PO QAM [facility] Stop: 02/22/19 08:59 Last Admin: 01/24/19 08:50 Dose: 81 mg Documented by: Bisacodyl (Dulcolax) 10 mg RI UD PRN PRN Reason: Constipation Stop: 02/22/19 00:34 Cyclobenzaprine HCl (Flexeril) 10 mg PO TID PRN PRN Reason: Muscle Spasm Stop: 02/22/19 00:34 Last Admin: 01/24/19 06:32 Dose: 10 mg Documented by: Dextrose (Dextrose 50%) 25 - 50 ml IV UD PRN; Protocol PRN Reason: Hypoglycemia Protocol Stop: 02/22/19 08:44 Docusate Sodium (Colace) 100 mg PO BID [facility] Stop: 02/22/19 08:59 Last Admin: 01/24/19 08:51 Dose: 100 mg Documented by: Duloxetine HCl (Cymbalta) 60 [facility] [place] Stop: 02/22/19 08:59 Last Admin: 01/24/19 08:51 Dose: 60 mg Documented by: Finasteride (Proscar) 5 mg PO QAM [facility] Stop: 02/22/19 08:59 Last Admin: 01/24/19 08:50 Dose: 5 mg Documented by: Fluticasone Propionate (Flonase) 1 sprays NA QAM [facility] Stop: 02/22/19 08:59 Last Admin: 01/24/19 08:41 Dose: 1 sprays Documented by: Gabapentin (Neurontin) 300 mg PO TID [facility] Stop: 02/22/19 08:59 Last Admin: 01/24/19 08:51 Dose: 300 mg Documented by: Glucagon (Glucagen) 1 mg IM UD PRN; Protocol PRN Reason: Hypoglycemia Protocol Stop: 02/22/19 08:44 Glucose (Glucose 40%) 15 - 30 gm PO UD PRN; Protocol PRN Reason: Hypoglycemia Protocol Stop: 02/22/19 08:44 Glucose (Dex4 Glucose) 4 - 8 tabs PO UD PRN; Protocol PRN Reason: Hypoglycemia Protocol Stop: 02/22/19 08:44 Hydromorphone HCl (Dilaudid) 1.5 mg IV 1000,1900 [facility] Stop: 02/06/19 18:59 Last Admin: 01/24/19 08:56 Dose: 1.5 mg Documented by: Hydroxyzine HCl (Vistaril) 25 mg PO QID PRN PRN Reason: Anxiety Stop: 02/22/19 00:34 Insulin Aspart (Novolog Flexpen) 0 units SC ACHS [facility] Stop: 02/22/19 11:29 Last Admin: 01/24/19 12:25 Dose: 12 units Documented by: Isosorbide Dinitrate (Isordil) 10 mg PO BID@0700,1200 [facility] Stop: 02/22/19 06:59 Last Admin: 01/24/19 08:51 Dose: 10 mg Documented by: Lidocaine (Lidoderm 5%) 3 patch TD DAILY [facility] Stop: 02/22/19 08:59 Last Admin: 01/24/19 08:38 Dose: Not Given Documented by: Lorazepam (Ativan) 1 mg PO Q8H PRN PRN Reason: Anxiety Stop: 02/22/19 00:34 Last Admin: 01/23/19 22:15 Dose: 1 mg Documented by: Magnesium Oxide (Mag-Ox) 400 mg PO QAM [facility] Stop: 02/22/19 08:59 Last Admin: 01/24/19 08:50 Dose: 400 mg Documented by: Metoprolol Succinate (Toprol Xl) 25 mg PO BID [facility] Stop: 02/22/19 08:59 Last Admin: 01/24/19 08:51 Dose: 25 mg Documented by: Miscellaneous (Remove Lidoderm Patch) 1 ea N/A DAILY@2100 [facility] Stop: 02/22/19 00:34 Last Admin: 01/23/19 20:47 Dose: Not Given Documented by: Miscellaneous (Order Awaiting Action) 1 ea N/A QS [facility] Stop: 02/22/19 07:59 Last Admin: 01/24/19 08:09 Dose: Not Given Documented by: Miscellaneous (Remove Nicoderm Patch) 1 ea N/A HS [facility] Stop: 02/22/19 00:34 Last Admin: 01/23/19 20:47 Dose: Not Given Documented by: Miscellaneous (Carbohydrates For Hypoglycemia) 15 - 30 gm PO UD PRN PRN Reason: Hypoglycemia Treatment Stop: 02/22/19 08:44 Morphine Sulfate (Ms Contin) 15 mg PO Q12 [facility] Stop: 02/06/19 00:34 Last Admin: 01/24/19 08:36 Dose: 15 mg Documented by: Nicotine (Nicoderm Cq) 7 mg TD QAM [facility] Stop: 02/22/19 08:59 Last Admin: 01/24/19 08:42 Dose: 7 mg Documented by: Nitroglycerin (Nitrostat) 0.4 mg SL UD PRN PRN Reason: Chest Pain Stop: 02/22/19 00:34 Non-Formulary Medication (Magnesium Hydroxide [Milk Of Magnesia Concentrated]) 30 ml PO Q12H PRN PRN Reason: Constipation Stop: 02/22/19 00:34 Nystatin (Mycostatin) 1 appln EXT BID [facility] Stop: 02/22/19 08:59 Last Admin: 01/24/19 08:42 Dose: 1 appln Documented by: Ondansetron HCl (Zofran Odt) 4 mg PO Q4H PRN PRN Reason: Nausea And Vomiting Stop: 02/22/19 00:34 Ondansetron HCl (Zofran) 4 mg IV Q6H PRN PRN Reason: Nausea Stop: 02/22/19 00:34 Last Admin: 01/24/19 08:56 Dose: 4 mg Documented by: Oxycodone HCl (Roxicodone Immediate Rel) 15 mg PO Q4H PRN PRN Reason: Pain Stop: 02/06/19 00:34 Last Admin: 01/24/19 12:36 Dose: 15 mg Documented by: Pantoprazole Sodium (Protonix) 40 mg PO BID [facility] Stop: 02/22/19 08:59 Last Admin: 01/24/19 08:51 Dose: 40 mg Documented by: Polyethylene Glycol (Miralax Powder Packet) 17 gm PO DAILY PRN PRN Reason: Constipation Stop: 02/22/19 00:34 Polyethylene Glycol (Miralax Powder Packet) 17 gm PO Q24H [facility] Stop: 02/22/19 08:59 Last Admin: 01/24/19 08:42 Dose: 17 gm Documented by: Potassium Chloride (Klor-Con M20) 20 meq PO DAILY [facility] Stop: 02/22/19 08:59 Last Admin: 01/24/19 08:49 Dose: 20 meq Documented by: Prednisone (Prednisone) 30 mg PO DAILY [facility]; Taper Stop: 02/05/19 08:59 Last Admin: 01/24/19 08:50 Dose: 30 mg Documented by: Senna/Docusate Sodium (Senokot S) 1 tab PO .Q24H PRN PRN Reason: Constipation Stop: 02/22/19 00:34 Sodium Biphosphate/Sodium Phosphate (Fleet Enema) 133 ml RI UD PRN PRN Reason: Constipation Stop: 02/22/19 00:34 Spironolactone (Aldactone) 50 mg PO BID17 [facility] Stop: 02/22/19 08:59 Last Admin: 01/24/19 08:49 Dose: 50 mg Documented by: Tamsulosin HCl (Flomax) 0.4 mg PO QAM [facility] Stop: 02/22/19 08:59 Last Admin: 01/24/19 08:50 Dose: 0.4 mg Documented by: Torsemide (Demadex) 30 mg PO QAM [facility] Stop: 02/22/19 08:59 Last Admin: 01/24/19 08:50 Dose: 30 mg Documented by: Tramadol HCl (Ultram) 50 mg PO Q6H PRN PRN Reason: Pain Stop: 02/22/19 00:34 Last Admin: 01/24/19 10:31 Dose: 50 mg Documented by: Warfarin Sodium (Coumadin) 10 mg PO DAILY@1600 [facility] Stop: 02/22/19 15:59 (1) Chest pain Chest pain type: unspecified Qualified Code(s): R07.9 - Chest pain, unspecified (2) Chronic pain Chronic pain type: other chronic pain Qualified Code(s): G89.29 - Other chronic pain (3) Chronic pulmonary embolism Acute cor pulmonale presence: without acute cor pulmonale Pulmonary embolism type: unspecified Qualified Code(s): I27.82 - Chronic pulmonary embolism
[2019-01-24 13:07] LABS: Alanine Aminotransferase 34 U/L (12-78); Alkaline Phosphatase 92 U/L (45-117); Aspartate Aminotransferase 13 U/L (15-37); Bilirubin Direct < 0.1 mg/dl (0-0.2); Bilirubin,Total 0.4 mg/dl (0.2-1); Total Protein 6.4 gm/dl (6.4-8.2)
[2019-01-24] MEDS ORDERED: HYDROmorphone INJ 2 MG/ML SYR/VIAL IV STA (16:33)
[2019-01-24 17:28] VITALS: BP 152/94; PULSE 90; O2SAT 98
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
== END 2019-01-24 18:48 | disposition home health service (06) | DRG 92 ==
LOC: 2N 20:11 → ED 20:11 → 2N 01-23 00:18

== ENCOUNTER 2019-01-31 16:17 | Inpatient (IN) ==
[2019-01-31] MEDS ORDERED: ERTAPENEM SODIUM 1,000 MG in SYRINGE 0 ML IV STA (16:38)
[2019-01-31] MEDS ORDERED: ALBUT/IPRATROP 3MG/0.5MG NEB 3 ML VIAL NEB ONE (16:39)
[2019-01-31] MEDS ORDERED: PROCHLORPERAZINE 2 ML IV ONE (16:54)
[2019-01-31] MEDS ORDERED: MAGNESIUM SULFATE / D5W 1 GM/100 ML BAG IV ONE (16:54)
--- NOTE | 2019-01-31 16:54 | XRay Report ---
XR chest 1V portable CLINICAL HISTORY: 48 years-old Male presenting with Chest Pain. TECHNIQUE: Portable upright AP view of the chest was obtained. COMPARISON: 01/29/2019. FINDINGS: Cardiac silhouette borderline enlarged. No focal opacity. No large effusion or pneumothorax. Osseous structures normal. Upper abdomen normal. IMPRESSION: 1. Borderline cardiomegaly. Otherwise no acute cardiopulmonary disease. The appearance is unchanged from prior exam. Electronically signed by: Joey Merida M.D. 01/31/2019 4:53 PM
[2019-01-31 17:38] LABS: Basophils # (auto) 0.04 K/uL (0-0.2); Basophils % (auto) 0.3 %; Eosinophils # (auto) 0.14 K/uL (0-0.5); Eosinophils % (auto) 1.1 %; Hematocrit (blood only) 40.6 % (42-52); Hemoglobin 13.2 g/dL (14.0-18.0); Immature Granulocytes # (auto) 0.08 K/uL (0.00-0.02); Immature Granulocytes % (auto) 0.6 %; Lymphocytes # (auto) 2.94 K/uL (1.2-3.4); Lymphocytes % (auto) 22.8 %; Mean Corpuscular Hgb Conc 32.5 g/dL (32-36); Mean Corpuscular Volume 81.5 fL (80-100); Mean Platelet Volume 9.8 fL (7.4-10.4); Monocytes # (auto) 0.95 K/uL (0.11-0.59); Monocytes % (auto) 7.4 %; Neutrophils # (auto) 8.72 K/uL (1.4-6.5); Neutrophils % (auto) 67.8 %; Platelet Count 202 K/uL (130-400); RDW Coefficient of Variation 17.1 % (11.5-14.5); RDW Standard Deviation 51.2 fL (36.4-46.3); Red Blood Count 4.98 M/uL (4.7-6.1); White Blood Count 12.87 K/uL (4.8-10.8)
[2019-01-31] MEDS ORDERED: HYDROmorphone INJ 1 MG/ML SYRINGE IV STA (17:53)
[2019-01-31 18:06] LABS: Alanine Aminotransferase 42 U/L (12-78); Albumin Level 3.4 gm/dl (3.4-5.0); Aspartate Aminotransferase 18 U/L (15-37); BUN Creatinine Ratio 17.3 (10-20); Blood Urea Nitrogen 17 mg/dl (7-18); Calcium 9.8 mg/dl (8.5-10.1); Carbon Dioxide 29 mmol/L (21-32); Chloride 103 mmol/L (98-107); Creatinine Clr Calc Pharmacy 162.7 ml/min; Est GFR (African American) 105.2; Est GFR (Non-African American) 90.8; Glucose 92 mg/dl (70-99); Potassium 4.1 mmol/L (3.5-5.1); Sodium 138 mmol/L (136-145)
[2019-01-31 18:15] LABS: Alkaline Phosphatase 108 U/L (45-117); Bilirubin,Total 0.6 mg/dl (0.2-1); Creatine Kinase 44 U/L (39-308); Creatine Kinase MB < 1.0 ng/ml (0.5-3.6); Globulin 3.4 gm/dl (2.5-4.0); Total Protein 6.8 gm/dl (6.4-8.2); Troponin I < 0.015 ng/ml (0-0.045)
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
[2019-01-31] MEDS ORDERED: ACETAMINOPHEN 325 MG TAB PO PRN (19:19)
[2019-01-31] MEDS ORDERED: ALBUT/IPRATROP 3MG/0.5MG NEB 3 ML VIAL INH PRN (19:19)
[2019-01-31] MEDS ORDERED: DOCUSATE SODIUM/SENNA 50/8.6MG TAB PO PRN (19:19)
[2019-01-31] MEDS ORDERED: ONDANSETRON 4 MG OD TAB PO PRN (19:19)
[2019-01-31] MEDS ORDERED: BISACODYL 10 MG SUPP PR PRN (19:19)
[2019-01-31] MEDS ORDERED: SOD PHOSPHATE/SOD BIPHOSPHATE ENEMA 132 ML BTL PR PRN (19:19)
[2019-01-31] MEDS ORDERED: ALUMINUM/MAGNESIUM SUSP 30 ML UDC PO PRN (19:19)
[2019-01-31] MEDS ORDERED: MAGNESIUM HYDROXIDE SUSP 30 ML UDC PO PRN (19:19)
[2019-01-31] MEDS ORDERED: POLYETHYLENE (MIRALAX) 17 GM PACK PO PRN (19:19)
[2019-01-31] MEDS ORDERED: NITROGLYCERIN SL 0.4 MG/TAB TAB SL PRN (19:19)
[2019-01-31] MEDS: MoRPHine SULFATE CR 15 MG TABCR PO SCH (19:38)
[2019-01-31] MEDS: POLYETHYLENE (MIRALAX) 17 GM PACK PO SCH (19:39)
[2019-01-31] MEDS ORDERED: ALBUTEROL HFA 8 GM INHALER INH PRN (19:45)
[2019-01-31] MEDS: ONDANSETRON INJ 2 MG/ML 2 ML VIAL IV PRN (19:48)
[2019-01-31 20:11] LABS: iSTAT Creatinine 0.8 mg/dl (0.6-1.3); iSTAT Hemoglobin 13.9 g/dl (14.0-18.0); iSTAT Ionized Calcium 1.3 mmol/l (1.12-1.32)
[2019-01-31] MEDS: OXYCODONE HCL IR 5 MG TAB (IMMEDIATE RELEASE) PO PRN (20:26)
[2019-01-31] MEDS ORDERED: FUROSEMIDE 80 MG TAB PO SCH (21:00)
[2019-01-31 21:13] LABS: INR 1.1 (0.9-1.1); Prothrombin Time 10.9 Seconds (9.0-12.0)
[2019-01-31] MEDS: NICOTINE 7 MG/24 HR TDSY TD SCH (21:31)
[2019-01-31] MEDS: SPIRONOLACTONE 25 MG TAB PO SCH (21:32)
[2019-01-31] MEDS: DOCUSATE SODIUM 100 MG CAP PO SCH (21:32)
[2019-01-31] MEDS: METOPROLOL SUCC 25MG EXT REL TAB PO SCH (21:32)
[2019-01-31] MEDS: NYSTATIN POWDER 15GM BTL EXT SCH (21:32)
[2019-01-31] MEDS: PANTOprazole 40 MG TAB PO SCH (21:32)
[2019-01-31] MEDS: GABAPENTIN 300 MG CAP PO SCH (21:32)
[2019-01-31] MEDS: WARFARIN SOD 2.5 MG TAB PO SCH (22:03)
[2019-01-31] MEDS: WARFARIN SOD 10 MG TAB PO SCH (22:04)
[2019-01-31] MEDS: HYDROmorphone INJ 1 MG/ML SYRINGE IV PRN (22:37)
[2019-02-01 00:10] LABS: Influenza A virus by PCR Neg for Influ A (Neg); Influenza B virus by PCR Neg for Influ B (Neg)
[2019-02-01] MEDS: OXYCODONE HCL IR 5 MG TAB (IMMEDIATE RELEASE) PO PRN ×6 (00:43→20:44)
[2019-02-01] MEDS: HYDROmorphone INJ 1 MG/ML SYRINGE IV PRN ×6 (02:38→23:46)
[2019-02-01] MEDS: ISOSORBIDE DINITRATE 10 MG TAB PO SCH ×2 (06:42→12:34)
[2019-02-01] MEDS: NICOTINE 7 MG/24 HR TDSY TD SCH (07:13)
[2019-02-01] MEDS: TIOTROPIUM BROMIDE 5 PUFF/90 MCG INH INH SCH (07:13)
[2019-02-01] MEDS: METOPROLOL SUCC 25MG EXT REL TAB PO SCH ×2 (07:14→19:54)
[2019-02-01] MEDS: GABAPENTIN 300 MG CAP PO SCH ×3 (07:14→19:54)
[2019-02-01] MEDS: PANTOprazole 40 MG TAB PO SCH ×2 (07:14→19:55)
[2019-02-01] MEDS: FINASTERIDE 5 MG TAB PO SCH (07:14)
[2019-02-01] MEDS: FLUTICASONE PROPIONATE NA SPR 16 GM BTL NAE SCH (07:14)
[2019-02-01] MEDS: NYSTATIN POWDER 15GM BTL EXT SCH ×2 (07:14→19:49)
[2019-02-01] MEDS: ASPIRIN 81 MG ECTAB PO SCH (07:15)
[2019-02-01] MEDS: SPIRONOLACTONE 25 MG TAB PO SCH ×2 (07:15→19:55)
[2019-02-01] MEDS: POTASSIUM CHLORIDE 20 MEQ TABCR PO SCH (07:15)
[2019-02-01] MEDS: TORSEMIDE 10 MG TAB PO SCH (07:15)
[2019-02-01] MEDS: TAMSULOSIN HCL 0.4 MG CAP PO SCH (07:15)
[2019-02-01] MEDS: DULOXETINE HCL 60 MG CAP PO SCH (07:15)
[2019-02-01] MEDS: DOCUSATE SODIUM 100 MG CAP PO SCH ×2 (07:15→19:54)
[2019-02-01] MEDS: MAGNESIUM OXIDE 400 MG TAB PO SCH (07:15)
[2019-02-01 08:05] LABS: Hematocrit (blood only) 37.6 % (42-52); Hemoglobin 12.5 g/dL (14.0-18.0); Mean Corpuscular Hgb Conc 33.2 g/dL (32-36); Mean Corpuscular Volume 80.9 fL (80-100); Mean Platelet Volume 10.1 fL (7.4-10.4); Platelet Count 171 K/uL (130-400); RDW Coefficient of Variation 17.1 % (11.5-14.5); RDW Standard Deviation 50.5 fL (36.4-46.3); Red Blood Count 4.65 M/uL (4.7-6.1); White Blood Count 11.21 K/uL (4.8-10.8)
[2019-02-01 08:13] LABS: INR 1.1 (0.9-1.1); Prothrombin Time 10.9 Seconds (9.0-12.0)
[2019-02-01 08:30] LABS: BUN Creatinine Ratio 16.6 (10-20); Calcium 9.3 mg/dl (8.5-10.1); Creatinine Clr Calc Pharmacy 164.4 ml/min; Est GFR (African American) 106.6; Est GFR (Non-African American) 91.9; Magnesium 2.3 mg/dl (1.8-2.4); Potassium 4.2 mmol/L (3.5-5.1)
[2019-02-01] MEDS: MoRPHine SULFATE CR 15 MG TABCR PO SCH ×2 (08:46→19:53)
[2019-02-01] MEDS: TRAMADOL HCL 50 MG TABLET PO PRN ×2 (10:11→18:02)
[2019-02-01] MEDS: LORazepam 1 MG TAB PO PRN (10:12)
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
[2019-02-01] MEDS: ONDANSETRON INJ 2 MG/ML 2 ML VIAL IV PRN (12:35)
[2019-02-01] MEDS: WARFARIN SOD 10 MG TAB PO SCH (15:27)
[2019-02-01] MEDS: WARFARIN SOD 2.5 MG TAB PO SCH (15:28)
[2019-02-01] MEDS: ERTAPENEM SODIUM 1,000 MG in SODIUM CHLORIDE 0.9% 50 ML IV SCH (16:29)
--- NOTE | 2019-02-01 18:08 | Hospitalist Progress Note ---
Date of Service February 01, 2019 Assessment & Plan (1) UTI (urinary tract infection) due to urinary indwelling Lloyd catheter: History of chronic urinary retention, has chronic Lloyd catheter Urine culture: Growing ESBL E. coli Sensitive to Invanz Patient is now started with IV Invanz 1 g every 24 hours ID anujal appreciated, will need total 10 days of treatment Ordered for PICC line, Social service involved to arrange home antibiotic treatment Patient will need referral to home health (2) UTI (urinary tract infection): Patient with urinary tract infection with ESBL producing E. coli in the setting of urinary retention and Lloyd catheter. Agree with use of ertapenem, will likely need in the range of 10 days total of therapy. (3) Urinary retention: Chronic, on Flomax, history of BPH Appreciate input from urology, patient is known to the service from prior visits, Lloyd catheter reinserted Outpatient follow-up at Dr. Barth's office appointment scheduled for 02/14/2019 for voiding trial Patient is counseled repeated time to keep the scheduled appointment, history of noncompliance, not showing up for appointments in the past (4) Chronic diastolic CHF (congestive heart failure): Volume status stable, no lower extremity edema, no shortness of breath or orthopnea patient is counseled repeatedly if To take medication as instructed, also low-salt diet CXR: no volume overload -continue torsemide, spironolactone (5) Pulmonary embolism: Hx PE on coumadin INR remains therapeutic, continue Coumadin as outpatient dose (6) Chronic pain disorder: Chronic lumbar back pain -continue oxycodone, morphine po, tramadol -History of narcotic pain abuse, patient request constantly for IV Dilaudid, as needed, insists on getting prescription for pain medication on discharge -On his last discharge from hospital on 01/27/2019, patient was given 5 days prescription of MS Contin, oxycodone and tramadol Follows with pain clinic, scheduled to have appointment next week Wednesday (7) HTN (hypertension): -continue metoprolol, isosorbide Blood pressure remains stable (8) Hypoventilation associated with obesity: (9) COPD (chronic obstructive pulmonary disease): Chronic SOB No respiratory distress, 98% on RA. -continue home inhalers (10) Tobacco abuse disorder: -nicotine patch -would recommend tobacco cessation DVT Prophylaxis -On coumadin (11) Infection due to ESBL-producing Escherichia coli: Management outlined already Disposition: Plan to discharge home tomorrow with home antibiotic Subjective Patient remains afebrile, Offers no complaints, managed to walk with physical therapy on the hallway, no loss of balance noted Hemodynamically stable, Lloyd catheter reinserted by urology today, draining clear yellow urine Appreciate input from ID, patient will need total 10 days of IV Invanz, Ordered for PICC line placement, Social service consulted for arrangement of home IV antibiotic Physical Exam Constitutional: + morbidly obese; no acute distress Eyes: PERRL, conjunctivae normal, anicteric sclerae ENMT: external ear and nose normal, oropharynx normal Neck: normal visual inspection Respiratory: normal respiratory effort Cardiovascular: RRR, no murmur, no edema Vessels: no JVD Gastrointestinal (Abdomen): Percussion/Palpation: abdomen soft; abdomen nontender Musculoskeletal: no cyanosis or clubbing, extremities motor strength 5/5 Neurologic: PERRL, EOMI, accommodation nl, no face palsy, no dysarthria Psychiatric: A+Ox3, euthymic affect Results & Data Vital Signs (Past 12 Hours) Vital Signs Temp Pulse Pulse Resp BP Pulse Ox Pulse Ox 02/01/19 15:06 37.1 C 104 H 18 126/85 94 02/01/19 10:55 96 02/01/19 07:11 36.5 C 88 20 127/84 95 (1) UTI (urinary tract infection) Urinary tract infection type: catheter-associated UTI Indwelling urinary catheter type: indwelling urethral catheter Encounter type: initial encounter Qualified Code(s): T83.511A - Infection and inflammatory reaction due to indwelling urethral catheter, initial encounter; N39.0 - Urinary tract infection, site not specified (2) COPD (chronic obstructive pulmonary disease) COPD type: emphysema Emphysema type: unspecified Qualified Code(s): J43.9 - Emphysema, unspecified (3) Pulmonary embolism Pulmonary embolism type: unspecified Chronicity: chronic Acute cor pulmonale presence: without acute cor pulmonale Qualified Code(s): I27.82 - Chronic pulmonary embolism (4) HTN (hypertension) Hypertension type: essential hypertension Qualified Code(s): I10 - Essential (primary) hypertension (5) UTI (urinary tract infection) due to urinary indwelling Lloyd catheter Indwelling urinary catheter type: indwelling urethral catheter Encounter type: initial encounter Qualified Code(s): T83.511A - Infection and inflammatory reaction due to indwelling urethral catheter, initial encounter; N39.0 - Urinary tract infection, site not specified
[2019-02-01] MEDS: POLYETHYLENE (MIRALAX) 17 GM PACK PO SCH (19:48)
[2019-02-01] MEDS ORDERED: ERTAPENEM SODIUM 1,000 MG in SODIUM CHLORIDE 0.9% 50 ML IV SCH (20:00)
--- NOTE | 2019-02-01 23:57 | Emergency Department Note ---
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 Imaging Data Radiologist's Impression: Radiology results as stated below per my review and the radiologist's interpretation: XR chest 1V portable CLINICAL HISTORY: 48 years-old Male presenting with Chest Pain. TECHNIQUE: Portable upright AP view of the chest was obtained. COMPARISON: 01/29/2019. FINDINGS: Cardiac silhouette borderline enlarged. No focal opacity. No large effusion or pneumothorax. Osseous structures normal. Upper abdomen normal. IMPRESSION: 1. Borderline cardiomegaly. Otherwise no acute cardiopulmonary disease. The appearance is unchanged from prior exam. Electronically signed by: Joey Merida M.D. 01/31/2019 4:53 PM ECG Data Attestation: I personally reviewed and interpreted this ECG as follows: Indication: chest pain Rate (beats per minute): 91 Rhythm: normal sinus Findings: no ST depression and no ST elevation Comparison ECG Date: from (01/29/2019) Change: no significant change Blood Pressure Blood Pressure Findings: Elevated blood pressure Blood Pressure Disposition: further management by hospitalist MDM Narrative This is a 48-year-old male who presents emergency department with concerns that he has a difficult to treat urinary tract infection. Patient had Lloyd catheter placed in the emergency department approximately 2 weeks ago. He was seen by urology at that time however has not had a follow-up appointment with them. I am concerned with this patient's tendency to use his health problems for secondary gain. For this reason and because he has poor follow-up with his primary care physicians as well as urology I had the Lloyd catheter pulled in the emergency department. His urinary tract infection is susceptible to ertapenem. I attempted to get this patient set up on outpatient IV antibiotics however the hospitalist is unable to provide this. They are going to admit the patient. In the meantime the patient was ordered DuoNeb breathing treatments because he is wheezing on physical examination. He was noncompliant with the treatments and insisted on pain medication instead. He was given Compazine as well as Toradol here in the emergency department. Impression & Plan UTI (urinary tract infection) Discharge Plan Visit Data *Final* Discharge Date/Time: 01/31/19 18:45 Chief Complaint: Chest Pain Stated Complaint: CHEST PAIN, SOB, POSSIBLE URINE INFECTION ED Provider: Luis Antonio Royal Discharge Problem: UTI (urinary tract infection) Patient Disposition: Admitted As Inpatient Discharge Instructions Interventions: ED Discharge Assessment Last Done: 01/31/19 18:45 The scribe's documentation has been prepared under my direction and personally reviewed by me in its entirety. I confirm that the note above accurately reflects all work, treatment, procedures, and medical decision making performed by me.
[2019-02-02] MEDS: OXYCODONE HCL IR 5 MG TAB (IMMEDIATE RELEASE) PO PRN ×4 (00:50→13:17)
[2019-02-02] MEDS: LORazepam 1 MG TAB PO PRN (00:53)
[2019-02-02] MEDS: TRAMADOL HCL 50 MG TABLET PO PRN ×3 (02:02→14:40)
[2019-02-02] MEDS: HYDROmorphone INJ 1 MG/ML SYRINGE IV PRN ×4 (04:04→15:53)
[2019-02-02] MEDS: ONDANSETRON INJ 2 MG/ML 2 ML VIAL IV PRN ×2 (05:15→12:50)
[2019-02-02] MEDS: ISOSORBIDE DINITRATE 10 MG TAB PO SCH ×2 (06:09→11:42)
[2019-02-02] MEDS: FLUTICASONE PROPIONATE NA SPR 16 GM BTL NAE SCH (07:48)
[2019-02-02] MEDS: TIOTROPIUM BROMIDE 5 PUFF/90 MCG INH INH SCH (07:48)
[2019-02-02] MEDS: NYSTATIN POWDER 15GM BTL EXT SCH (07:49)
[2019-02-02] MEDS: MAGNESIUM OXIDE 400 MG TAB PO SCH (07:50)
[2019-02-02] MEDS: GABAPENTIN 300 MG CAP PO SCH ×2 (07:50→14:05)
[2019-02-02] MEDS: PANTOprazole 40 MG TAB PO SCH (07:50)
[2019-02-02] MEDS: FINASTERIDE 5 MG TAB PO SCH (07:50)
[2019-02-02] MEDS: METOPROLOL SUCC 25MG EXT REL TAB PO SCH (07:50)
[2019-02-02] MEDS: TAMSULOSIN HCL 0.4 MG CAP PO SCH (07:50)
[2019-02-02] MEDS: DOCUSATE SODIUM 100 MG CAP PO SCH (07:51)
[2019-02-02] MEDS: NICOTINE 7 MG/24 HR TDSY TD SCH (07:51)
[2019-02-02] MEDS: SPIRONOLACTONE 25 MG TAB PO SCH (07:51)
[2019-02-02] MEDS: TORSEMIDE 10 MG TAB PO SCH (07:51)
[2019-02-02] MEDS: DULOXETINE HCL 60 MG CAP PO SCH (07:51)
[2019-02-02] MEDS: ASPIRIN 81 MG ECTAB PO SCH (07:51)
[2019-02-02] MEDS: POTASSIUM CHLORIDE 20 MEQ TABCR PO SCH (08:38)
[2019-02-02] MEDS: MoRPHine SULFATE CR 15 MG TABCR PO SCH (08:40)
[2019-02-02 09:02] LABS: INR 2.1 (0.9-1.1); Prothrombin Time 20.3 Seconds (9.0-12.0)
[2019-02-02] MEDS: ERTAPENEM SODIUM 1,000 MG in SODIUM CHLORIDE 0.9% 50 ML IV SCH (15:37)
[2019-02-02] MEDS: WARFARIN SOD 2.5 MG TAB PO SCH (15:37)
[2019-02-02] MEDS: WARFARIN SOD 10 MG TAB PO SCH (15:38)
[2019-02-02] MEDS ORDERED: HYDROmorphone INJ 0.5 MG/0.5 ML SYR IV STA (16:48)
--- NOTE | 2019-02-02 17:39 | Infectious Disease Progress Nt ---
Date of Service February 02, 2019 Assessment & Plan (1) UTI (urinary tract infection): Patient with urinary tract infection with ESBL producing E. coli in the setting of urinary retention and Lloyd catheter. Agree with use of ertapenem, will likely need in the range of 10 days total of therapy. Will follow. (2) Infection due to ESBL-producing Escherichia coli: Subjective Patient seen in follow-up for E. coli urinary tract infection. Better today, less pain, no fever or flank pain. Was positive for ESBL E. coli. No new complaints. Review of Systems Review of Systems: All systems reviewed & are unremarkable except as noted in HPI & below Physical Exam Constitutional: WD/WN, vitals as above comfortable; no acute distress Eyes: PERRL, conjunctivae normal, anicteric sclerae ENMT: external ear and nose normal, oropharynx normal Neck: trachea midline, no thyromegaly neck nontender Respiratory: normal respiratory effort, lungs clear to auscultation normal percussion; no respiratory distress Cardiovascular: Rate/Rhythm: regular rate and regular rhythm Heart Sounds: normal S1 and normal S2; no gallop, no murmur and no cardiac rub Gastrointestinal (Abdomen): normal bowel sounds, soft, nontender, no hepatosplenomegaly Musculoskeletal: no cyanosis or clubbing, extremities motor strength 5/5 No spinal tenderness, no joint swelling or erythema Skin: no rashes, warm and dry no lesions Neurologic: moves all extremities and awake; no focal motor deficits Motor/Sensory: no sensory deficit Psychiatric: A+Ox3, euthymic affect Lymphatic: no cervical or axillary lymphadenopathy no inguinal lymphadenopathy Results & Data Vital Signs (Past 12 Hours) Vital Signs Temp Pulse Pulse Resp BP BP Pulse Ox 02/02/19 16:21 36.5 C 118 H 88 18 133/74 108/72 97 02/02/19 15:10 36.5 C 118 H 18 133/74 97 02/02/19 07:54 36.4 C L 89 18 121/83 97 Laboratory Results Laboratory Results - last 48 hr 01/31/19 01/31/19 01/31/19 17:28 17:28 17:37 WBC RBC Hgb POC Hgb 13.9 L Hct POC Hct 41 L MCV MCH MCHC RDW Std Deviation RDW Coeff of Megan Plt Count MPV PT Cancelled INR Cancelled POC Sodium 139 Sodium 138 POC Potassium 4.0 Potassium 4.1 POC Chloride 100 L Chloride 103 Carbon Dioxide 29 POC Total CO2 29 Anion Gap 6.0 POC Anion Gap 15.0 L POC BUN 17 BUN 17 Creatinine 0.98 POC Creatinine 0.8 Est Cr Clr Drug Dosing 162.7 Est GFR ( Amer) 105.2 Est GFR (Non-Af Amer) 90.8 BUN/Creatinine Ratio 17.3 Glucose 92 POC Glucose POC Glucose (other) 96 Calcium 9.8 POC Ioniz Calcium Vera 1.30 Magnesium Total Bilirubin 0.6 AST 18 ALT 42 Alkaline Phosphatase 108 Total Creatine Kinase 44 CK-MB (CK-2) < 1.0 CK/CKMB % Calc TNP Troponin I < 0.015 Total Protein 6.8 Albumin 3.4 Globulin 3.4 Albumin/Globulin Ratio 1.0 Lipase 128 Influenza Type A (PCR) Influenza Type B (PCR) 01/31/19 01/31/19 01/31/19 19:33 19:49 20:55 WBC RBC Hgb POC Hgb Hct POC Hct MCV MCH MCHC RDW Std Deviation RDW Coeff of Megan Plt Count MPV PT Cancelled 10.9 INR Cancelled 1.1 POC Sodium Sodium POC Potassium Potassium POC Chloride Chloride Carbon Dioxide POC Total CO2 Anion Gap POC Anion Gap POC BUN BUN Creatinine POC Creatinine Est Cr Clr Drug Dosing Est GFR ( Amer) Est GFR (Non-Af Amer) BUN/Creatinine Ratio Glucose POC Glucose 96 POC Glucose (other) Calcium POC Ioniz Calcium Vera Magnesium Total Bilirubin AST ALT Alkaline Phosphatase Total Creatine Kinase CK-MB (CK-2) CK/CKMB % Calc Troponin I Total Protein Albumin Globulin Albumin/Globulin Ratio Lipase Influenza Type A (PCR) Influenza Type B (PCR) 01/31/19 02/01/19 02/01/19 23:05 07:48 07:50 WBC 11.21 H RBC 4.65 L Hgb 12.5 L POC Hgb Hct 37.6 L POC Hct MCV 80.9 MCH 26.9 MCHC 33.2 RDW Std Deviation 50.5 H RDW Coeff of Megan 17.1 H Plt Count 171 MPV 10.1 PT INR POC Sodium Sodium POC Potassium Potassium POC Chloride Chloride Carbon Dioxide POC Total CO2 Anion Gap POC Anion Gap POC BUN BUN Creatinine POC Creatinine Est Cr Clr Drug Dosing Est GFR ( Amer) Est GFR (Non-Af Amer) BUN/Creatinine Ratio Glucose POC Glucose 119 H POC Glucose (other) Calcium POC Ioniz Calcium Vera Magnesium Total Bilirubin AST ALT Alkaline Phosphatase Total Creatine Kinase CK-MB (CK-2) CK/CKMB % Calc Troponin I Total Protein Albumin Globulin Albumin/Globulin Ratio Lipase Influenza Type A (PCR) Neg for Influ A Influenza Type B (PCR) Neg for Influ B 02/01/19 02/01/19 02/01/19 07:50 07:50 11:39 WBC RBC Hgb POC Hgb Hct POC Hct MCV MCH MCHC RDW Std Deviation RDW Coeff of Emgan Plt Count MPV PT 10.9 INR 1.1 POC Sodium Sodium 140 POC Potassium Potassium 4.2 POC Chloride Chloride 107 Carbon Dioxide 25 POC Total CO2 Anion Gap 8.0 POC Anion Gap POC BUN BUN 16 Creatinine 0.97 POC Creatinine Est Cr Clr Drug Dosing 164.4 Est GFR ( Amer) 106.6 Est GFR (Non-Af Amer) 91.9 BUN/Creatinine Ratio 16.6 Glucose 111 H POC Glucose 153 H POC Glucose (other) Calcium 9.3 POC Ioniz Calcium Vera Magnesium 2.3 Total Bilirubin AST ALT Alkaline Phosphatase Total Creatine Kinase CK-MB (CK-2) CK/CKMB % Calc Troponin I Total Protein Albumin Globulin Albumin/Globulin Ratio Lipase Influenza Type A (PCR) Influenza Type B (PCR) 02/01/19 02/01/19 02/02/19 16:51 20:06 07:51 WBC RBC Hgb POC Hgb Hct POC Hct MCV MCH MCHC RDW Std Deviation RDW Coeff of Megan Plt Count MPV PT INR POC Sodium Sodium POC Potassium Potassium POC Chloride Chloride Carbon Dioxide POC Total CO2 Anion Gap POC Anion Gap POC BUN BUN Creatinine POC Creatinine Est Cr Clr Drug Dosing Est GFR ( Amer) Est GFR (Non-Af Amer) BUN/Creatinine Ratio Glucose POC Glucose 113 H 121 H 119 H POC Glucose (other) Calcium POC Ioniz Calcium Vera Magnesium Total Bilirubin AST ALT Alkaline Phosphatase Total Creatine Kinase CK-MB (CK-2) CK/CKMB % Calc Troponin I Total Protein Albumin Globulin Albumin/Globulin Ratio Lipase Influenza Type A (PCR) Influenza Type B (PCR) 02/02/19 02/02/19 02/02/19 08:21 11:44 16:31 WBC RBC Hgb POC Hgb Hct POC Hct MCV MCH MCHC RDW Std Deviation RDW Coeff of Megan Plt Count MPV PT 20.3 H INR 2.1 H POC Sodium Sodium POC Potassium Potassium POC Chloride Chloride Carbon Dioxide POC Total CO2 Anion Gap POC Anion Gap POC BUN BUN Creatinine POC Creatinine Est Cr Clr Drug Dosing Est GFR ( Amer) Est GFR (Non-Af Amer) BUN/Creatinine Ratio Glucose POC Glucose 108 H 152 H POC Glucose (other) Calcium POC Ioniz Calcium Vera Magnesium Total Bilirubin AST ALT Alkaline Phosphatase Total Creatine Kinase CK-MB (CK-2) CK/CKMB % Calc Troponin I Total Protein Albumin Globulin Albumin/Globulin Ratio Lipase Influenza Type A (PCR) Influenza Type B (PCR) Diagnostic Findings Microbiology 01/31/19 18:17 Urine,Straight Cath Urine Culture - Final Escherichia coli ESBL Escherichia coli ESBL#2 01/31/19 18:52 Blood Aerobic Blood Culture - Preliminary No growth in Aerobic bottle after 24 hours. 01/31/19 18:52 Blood Anaerobic Blood Culture - Final 01/31/19 18:48 Blood Aerobic Blood Culture - Preliminary No growth in Aerobic bottle after 24 hours. 01/31/19 18:48 Blood Anaerobic Blood Culture - Final
--- NOTE | 2019-02-02 18:43 | Discharge Summary ---
Date of Service February 02, 2019 Admission HPI Per Admitting Provider Chief Complaint: Pt is 48 y/o M with PMH chronic CHF, pulmonary embolism on Coumadin, HTN, obesity hypoventilation, COPD, tobacco use, morbid obesity, depression, anxiety, migraines, chronic pain, h/o recurrent hospitalizations for decompensated CHF presented to ER as reports was called with abnormal lab results. Pt with hx chronic SOB and CP. Hx hospitalization [facility] 01/07 through 01/24/19 for evaluation of chest pain and management of his chronic pain. He was discharged home. Pt states has continued SOB and intermittent CP. Pt with hx urinary retention and has Mayer cath in place from a prior admission. Seen in ER 01/29/19 and was placed on Bactrim for suspected UTI on initial UA and had urine culture at that time. Pt was also evaluated by hospitalist team and it was found that pt was down 2.2 kg from discharge on 01/24. At that time had BNP that was WNL and CXR without evidence of pulmonary congestion, normal sats on room air, INR was 2.2 and had EKG demonstrates nonspecific T wave changes in leads V1 and V2, troponins were negative x2. Pt with hx past multiple cardiac evaluations that have been unrevealing. Pt followed with Coumadin clinic 01/30/19 and INR: 2.2. Was instructed to give Coumadin 2.5mg daily since he is also on Bactrim Pt states today he vomited 3 times and had 2 loose BMs. He reports chronic intermittent abdominal pain, sometimes to right upper abdomen, sometimes to left side of abdomen. Also with chronic back pain. He denies any changes in his abdomen or back pain, CP or SOB then usual. States still has cough that has been present for several weeks. Hx intermittent migraines, reports had migraine BURNETTE today. Denies fever/chills, diaphoresis, hematemesis, hematochezia, melena, hemoptysis, dizziness, syncope, vision changes, neck pain, palpitations, sore throat, choking, otalgia, rhinorrhea, extremity weakness, increased extremity edema, rashes. Primary Care Provider: Owen Hogan MD Principal Diagnosis ESBL E. coli associated with chronic indwelling Mayer catheter/chronic urinary tract infection/chronic pain medication abuse Discharge Exam Constitutional + morbidly obese; no acute distress Eyes PERRL, conjunctivae normal, anicteric sclerae ENMT external ear and nose normal, oropharynx normal Neck normal visual inspection Respiratory normal respiratory effort Cardiovascular RRR, no murmur, no edema Vessels: no JVD Gastrointestinal (Abdomen) Percussion/Palpation: abdomen soft; abdomen nontender Musculoskeletal no cyanosis or clubbing, extremities motor strength 5/5 Neurologic PERRL, EOMI, accommodation nl, no face palsy, no dysarthria Psychiatric A+Ox3, euthymic affect Discharge Data Allergies Allergy/AdvReac Type Severity Reaction Status Date / Time fentanyl Allergy Intermediate RASH/HIVES/SKIN Verified 01/31/19 16:49 REDNESS acetaminophen AdvReac Intermediate Unknown Verified 01/31/19 16:49 valproic acid AdvReac Intermediate PANCREATITS Verified 01/31/19 16:49 Consultations 01/31/19 17:13 ED Decision to Admit Stat 01/31/19 19:19 Consult Case Management - Discharge Planning Routine Consult Infectious Diseases Routine 02/01/19 09:35 Consult Urology Routine Hospital Course (1) UTI (urinary tract infection) due to urinary indwelling Mayer catheter: History of chronic urinary retention, has chronic Mayer catheter Urine culture: Growing ESBL E. coli Sensitive to Invanz ID eval appreciated, will need total 10 days of treatment PICC line placed, Social service help appreciated arrange made for home antibiotic treatment Patient got third dose of IV Invanz today at 4 PM, will be discharged afterwards referral made to home health visiting nurse PT OT evaluation appreciated, patient is back to baseline functional status, stable to be returned home (2) UTI (urinary tract infection): Patient with urinary tract infection with ESBL producing E. coli in the setting of urinary retention and Mayre catheter. Management as outlined above (3) Urinary retention: Chronic, on Flomax, history of BPH Appreciate input from urology, patient is known to the service from prior visi ts, Mayer catheter reinserted Outpatient follow-up at Dr. Sharma's office appointment scheduled for 02/14/2019 for voiding trial Patient is counseled repeated time to keep the scheduled appointment, history of noncompliance, not showing up for appointments in the past (4) Chronic diastolic CHF (congestive heart failure): Volume status stable, no lower extremity edema, no shortness of breath or orthopnea patient is counseled repeatedly if To take medication as instructed, also low-salt diet CXR: no volume overload -continue torsemide, spironolactone (5) Pulmonary embolism: Hx PE on coumadin INR remains therapeutic, continue Coumadin as outpatient dose (6) Chronic pain disorder: Chronic lumbar back pain -continue oxycodone, morphine po, tramadol -History of narcotic pain abuse, patient request constantly for IV Dilaudid, as needed, insists on getting prescription for pain medication on discharge -On his last discharge from hospital on 01/27/2019, patient was given 5 days prescription of MS Contin, oxycodone and tramadol Follows with pain clinic, scheduled to have appointment next week Wednesday Patient insist of getting prescription for pain medication before discharge, says he is ran out of his all pain meds PDMP reviewed: Patient received 5 days prescription for MS Contin/oxycodone/Ativan on 01/27/2019 Admitted to hospital on 01/31/2019 Patient should have 1 to 2 days worth of pain medication remaining at home, Given 3 days prescription of MS Contin/oxycodone/Ativan: Good enough to last over the weekend, Patient is asked to follow-up with either pain clinic or family physician on Wednesday for further pain medications if needed PDMP: Since September 2018 to January 2019 : Patient filled 17 prescriptions of narcotics( MS contin/Oxycodon/tramadol) and Ativan Patient was given maximum 5 days worth of prescription by providers each time Reviewing PDMP looks like patient will fill up new prescription before running out of previous supply Also there are 23 incidences: Where patient paid out of pocket for MS Contin 5 days supplies of 10 tablets: $135 On 01/19/2019: Oxycodone hydrochloride 15 mg =5 days supply of 30 tablets patient paid out of pocket $135 On 01/21/2019: Oxycodone HCL 15 m days supply of 18 tablets Patient paid out of pocket 135 $ Patient appears to be stashing narcotic prescriptions and have them filled out of pocket when it is too soon to be covered by insurance High likelihood of narcotic prescription medication abuse, versus selling them illegally. Patient's been admitted almost every other week at [facility]- with different medical complications most of them are secondary to noncompliance issues Most of his hospital admission leads to lengthy stay Patient refuses to be discharged/leave hospital each time without getting prescription for narcotic pain medications /each time received scripts for chronic pain meds for short duration of 3-5 days patient has been very difficult -causing a lot of time involvement for discharge planning by physicians, nursing staff, case management (7) HTN (hypertension): -continue metoprolol, isosorbide Blood pressure remains stable (8) Hypoventilation associated with obesity: (9) COPD (chronic obstructive pulmonary disease): Chronic SOB No respiratory distress, 98% on RA. -continue home inhalers (10) Tobacco abuse disorder: -nicotine patch -would recommend tobacco cessation DVT Prophylaxis -On coumadin (11) Infection due to ESBL-producing Escherichia coli: Management outlined already Disposition: Discharge home today Has IV PICC line, home health visiting nurse services arranged Management meant arrangement made for 10 days of IV Invanz PICC line will be discontinued by home health visiting nurse after completion of IV antibiotic Total Time Total Time Spent Total Time Spent (In Minutes): Approximately 40 minutes Total Time Includes: Examination of the Patient, Discharge Planning and Medication Reconciliation Discharge Plan Discharge Items Patient Disposition: Home - Home Health Services Reason For Visit: COMPLICATED UTI Discharge Diagnosis: ESBL UTI WITH INDWELLING MAYER CATHETER /URINARY RETENTION Discharge Goals: Decrease discomfort and Therapeutic intervention Activity: Resume your previous activity Non-emergency contact: Primary Care Provider Call non-emergency contact if: you have any medication questions Follow-up/Referrals: Frakn Sharma MD [Physician] - 02/14/19 1:30 pm (follow up appointment with urology ) Owen Hogan MD [Primary Care Provider] - 02/07/19 11:05 am Diet: Carb Consistent or DM2 and Heart Healthy Addtl Provider Instructions: UROLOGY FOLLOW UP WITH DR SHARMA ON 02/14/2019 @1: 30 PM HOSPITAL FOLLOW UP WITH DR HOGAN ON 02/07/2019 @ 11: 05 AM Prescriptions: New ertapenem [Invanz] 1 gram recon soln 1 gm IV DAILY 10 Days Qty: 10 RF: 0 Continued sennosides-docusate sodium [Senokot-S] 8.6-50 mg Tablet 1 tab PO .Q24H PRN (Reason: Constipation) RF: 0 gabapentin 300 mg Capsule 300 mg PO TID RF: 0 albuterol sulfate [ProAir HFA] 90 mcg/actuation Hfa Aerosol Inhaler 2 puff INHALATION Q4H PRN (Reason: Wheezing) RF: 0 ondansetron 4 mg Tablet,Disintegrating 4 mg PO Q4H PRN (Reason: Nausea And Vomiting) RF: 0 polyethylene glycol 3350 [Miralax] 17 gram powder in packet 17 g PO Q24H RF: 0 nitroglycerin [Nitrostat] 0.4 mg tablet, sublingual 0.4 mg Sublingual DIRECTED PRN (Reason: CHEST PAIN) RF: 0 docusate sodium 100 mg capsule 100 mg PO BID RF: 0 metoprolol succinate 25 mg tablet extended release 24 hr 25 mg PO BID RF: 0 bisacodyl 10 mg Suppository 10 mg AK DIRECTED PRN (Reason: Constipation) RF: 0 Fleet Enema 19-7 gram/118 mL Enema 133 ml AK DIRECTED PRN (Reason: Constipation) RF: 0 nystatin 100,000 unit/gram Powder 1 applic TOPICAL BID RF: 0 ipratropium-albuterol 0.5 mg-3 mg(2.5 mg base)/3 mL Solution For Nebulization 3 ml INHALATION Q4H PRN (Reason: Shortness Of Breath Or Wheezing) RF: 0 nicotine [Nicoderm CQ] 7 mg/24 hr Patch 24 Hour 7 mg transdermal QAM Qty: 0 RF: 0 magnesium oxide 400 mg (241.3 mg magnesium) Tablet 400 mg PO QAM Qty: 0 RF: 0 spironolactone 50 mg tablet 50 mg PO BID RF: 0 torsemide 10 mg Tablet 30 mg PO QAM 30 Days Qty: 90 RF: 0 finasteride [Proscar] 5 mg Tablet 5 mg PO QAM 30 Days Qty: 30 RF: 0 pantoprazole 40 mg Tablet,Delayed Release (Dr/Ec) 40 mg PO BID 30 Days Qty: 60 RF: 0 warfarin 2.5 mg Tablet 2.5 mg PO DAILY RF: 0 tramadol 50 mg tablet 50 mg PO Q6H PRN (Reason: Pain) 3 Days Qty: 12 RF: 0 lorazepam 1 mg Tablet 1 mg PO Q8H PRN (Reason: Anxiety) 3 Days Qty: 9 RF: 0 morphine [MS Contin] 15 mg Tablet Extended Release 15 mg PO Q12H 3 Days Qty: 6 RF: 0 oxycodone 15 mg Tablet 15 mg PO Q4H PRN (Reason: Pain) 3 Days Qty: 12 RF: 0 hydroxyzine HCl 25 mg tablet 25 mg PO QID PRN (Reason: Anxiety) RF: 0 fluticasone propionate 50 mcg/actuation spray,suspension 1 spray Intranasal QAM RF: 0 aspirin [Ecotrin Low Strength] 81 mg tablet,delayed release (DR/EC) 81 mg PO QAM RF: 0 duloxetine 60 mg capsule,delayed release(DR/EC) 60 mg PO QAM RF: 0 isosorbide dinitrate 10 mg tablet 10 mg PO BID RF: 0 potassium chloride [Klor-Con M20] 20 mEq Tablet,Er Particles/Crystals PO DAILY RF: 0 prednisone 20 mg Tablet See Rx Instructions .ROUTE .COMPLEX RF: 0 warfarin [Coumadin] 10 mg Tablet 10 mg PO DAILY@1600 30 Days Qty: 30 RF: 0 Spiriva with HandiHaler 18 mcg capsule, w/inhalation device 2 puff inhalation Q4H PRN (Reason: Shortness Of Breath) RF: 0 Discontinued morphine [MS Contin] 15 mg Tablet Extended Release 15 mg PO Q12H RF: 0 oxycodone 15 mg Tablet 15 mg PO Q4H PRN (Reason: Pain) RF: 0 sulfamethoxazole-trimethoprim [Bactrim DS] 800-160 mg tablet 160 mg PO Q12H Qty: 20 RF: 0 Stand-Alone Forms: Call Back Authorization, [facility] Discharge Orders: Discharge Order (Routine); Ordered 02/02/19 Ordered By: Roxy Bradshaw Admission Data Admit Date/Time: 02/01/19 12:28 Attending Provider: Roxy Bradshaw Admit Provider: Roxy Bradshaw Primary Care Provider: Owen Hogan Other Providers: Dipesh Wright ; Aleksandr Jaimes ; Christian Burrows ; Yvon Oconnell ; Arron Kenney I. ; Frank Sharma ; Lisa Curiel ; Franklin Oakley II ; Vania Reeder Service: Medical Other Interventions: Discharge Summary Assessment (RN) Last Done: 02/02/19 16:21 DC Date/Time DO NOT enter until pt leaves facility: 02/02/19 17:48
== END 2019-02-02 17:48 | disposition home health service (06) | DRG 699 ==
LOC: 4W 16:17 → ED 16:17 → 4W 18:45

== ENCOUNTER 2019-02-05 15:30 | Observation (INO) ==
[2019-02-05] MEDS ORDERED: ONDANSETRON INJ 2 MG/ML 2 ML VIAL IV STA (16:29)
[2019-02-05 16:52] LABS: Basophils # (auto) 0.03 K/uL (0-0.2); Basophils % (auto) 0.3 %; Eosinophils # (auto) 0.28 K/uL (0-0.5); Hematocrit (blood only) 40.6 % (42-52); Immature Granulocytes # (auto) 0.07 K/uL (0.00-0.02); Immature Granulocytes % (auto) 0.8 %; Lymphocytes # (auto) 2.25 K/uL (1.2-3.4); Lymphocytes % (auto) 24.2 %; Mean Corpuscular Volume 81.5 fL (80-100); Mean Platelet Volume 10.1 fL (7.4-10.4); Monocytes % (auto) 8.6 %; Neutrophils # (auto) 5.88 K/uL (1.4-6.5); Neutrophils % (auto) 63.1 %; Platelet Count 212 K/uL (130-400); RDW Coefficient of Variation 16.8 % (11.5-14.5); RDW Standard Deviation 50.1 fL (36.4-46.3); Red Blood Count 4.98 M/uL (4.7-6.1); White Blood Count 9.31 K/uL (4.8-10.8)
[2019-02-05 17:08] LABS: Blood Urea Nitrogen 11 mg/dl (7-18); Carbon Dioxide 29 mmol/L (21-32); Chloride 104 mmol/L (98-107); Est GFR (African American) 86.7; Est GFR (Non-African American) 74.8; Potassium 3.9 mmol/L (3.5-5.1); Sodium 140 mmol/L (136-145)
[2019-02-05 17:09] LABS: Alanine Aminotransferase 36 U/L (12-78); Albumin Level 3.2 gm/dl (3.4-5.0); Aspartate Aminotransferase 14 U/L (15-37); BUN Creatinine Ratio 9.6 (10-20); Creatinine Clr Calc Pharmacy 137.5 ml/min; Glucose 124 mg/dl (70-99)
[2019-02-05 17:14] LABS: Albumin Globulin Ratio 0.9 (0.9-2); Alkaline Phosphatase 116 U/L (45-117); Bilirubin,Total 0.4 mg/dl (0.2-1); Creatine Kinase 43 U/L (39-308); Creatine Kinase MB < 1.0 ng/ml (0.5-3.6); Globulin 3.7 gm/dl (2.5-4.0); Total Protein 6.9 gm/dl (6.4-8.2); Troponin I < 0.015 ng/ml (0-0.045)
--- NOTE | 2019-02-05 17:27 | Emergency Department Note ---
Entered by Lorena Bernal acting as a scribe for Lit Box MD ED Provider Note CHIEF COMPLAINT: Chest Pain HISTORY OF PRESENT ILLNESS: The patient is a 48 year old male who presents to the Emergency Room with complaints of chest pain that began 2 days prior to arrival. The patient states that his chest pain in across his left-upper side and states that it radiates into his neck. The patient states that he has shortness of breath, nausea, and numbness/tingling in his left arm. The patient denies any numbness/tingling in any other parts of his body. The patient denies any black or bloody stools, hives, itching, rash, visual changes, or flushing in face. The patient states that he was receiving vancomycin injections and states that during this his chest pain worsened. The patient states that he is receiving vancomycin for a UTI. The patient states that he was at the ED 1 day prior to arrival and states that his symptoms have not gone away.The patient states that he gained 12 pounds overnight. The patient denies any problems with his catheter. The patient states that he received Nitro in the ambulance on the way to the ED and stated that this did relieve some of his chest pain. Pt denies LOC, headache, fevers, chills, diaphoresis, visual changes, vomiting, abdominal pain, back pain, melena, hematochezia, urinary symptoms, weakness, lymphadenopathy, rash, or other complaints. REVIEW OF SYSTEMS: See HPI for pertinent positives and negatives. A total of ten systems were reviewed and were otherwise negative. PMHx/PSHx: UTI (urinary tract infection) due to urinary indwelling Lloyd catheter Opioid dependence Hypertension Pulmonary embolism COPD SOCIAL HISTORY: Patient lives at home. PHYSICAL EXAM: GENERAL: Awake, alert, uncomfortable-appearing, in no distress. HENT: Normocephalic, atraumatic. Oropharynx unremarkable. EYES: PERRL. Normal conjunctiva. Sclera non-icteric. NECK: Inspection normal. Non-tender. Supple. No nuchal rigidity. FROM. No mass es. RESPIRATORY: Clear to auscultation. No wheezes. No rales. Normal respiratory effort. CARDIAC: Normal rate. Tachycardic rhythm. No murmurs. No rubs. Extremities warm and well perfused. Pulses equal. No JVD. GI: Soft, non-distended. No tenderness to palpation. No rebound or guarding. No masses. : Lloyd catheter in place. RECTAL: Deferred. MUSCULOSKELETAL: Atraumatic. Chest examination reveals no tenderness. The back is symmetrical on inspection without obvious abnormality. There is no CVA tenderness to palpation. No joint edema. LOWER EXTREMITIES: Calves are equal size bilaterally and non-tender. 1+ edema. Chronic venous discoloration. NEURO: Normal sensorium. No sensory or motor deficits noted. SKIN: No rash or jaundice noted. EMERGENCY DEPARTMENT COURSE: 161: Past medical records reviewed. The patient was evaluated in room B9, and a complete history and physical examination were performed. 165: I discussed the patient's case with the pharmacist immersion metal cleaner, and the pat steff is taking Invanz and not vancomycin. The pharmacist stated that chest pain was not an adverse reaction to Invanz. 183: I reviewed the patient's case with Angela Person Hospitalist and the patient will be admitted to Dr. Mcbride Erisa Attorney and evaluated for further hospitalization. MEDICAL DECISION MAKING: Prior records/ancillary studies reviewed. Patient has ESBL UTI with E. coli. His work-up yesterday only revealed an elevated INR. Triage Nursing notes reviewed. The patient's history was concerning for chest pain. Differential diagnosis: Etiologies such as medication side effect, cardiac ischemia, aortic dissection, pulmonary embolism, pneumonia, pneumothorax, musculoskeletal, infections, pericarditis, myocarditis, esophageal rupture, gastrointestinal, as well as others were entertained. Physical examination: As above. Mild tachycardia. No hypotension. No hypoxia. ER treatment provided: Cardiac monitoring IV Zofran On reassessment the patient felt better with regards to his nausea. He request pain medication. IV Tylenol was ordered however the patient noted an allergy.. IV Zosyn IV morphine Diagnostic interpretation by me: The electrocardiogram was negative for ST elevation. Nonspecific ST present. The labs revealed an unremarkable CBC and chemistry panel. Troponin negative. INR supratherapeutic. Imaging studies: CT PE study was performed to further evaluate his chest. Patient was found to have old pulmonary emboli but also an acute upper left PE. The patient was having a reaction to Invanz for his ESBL. His only other option was Zosyn. He was also found to have a supratherapeutic INR and a new pulmonary emboli on imaging. Further management in the hospital will be necessary. The patient was educated. He was in agreement. Consultation: A consultation was placed with the hospitalist. The case was discussed and diagnostics were reviewed. The patient was evaluated in the ER for further treatment. IMPRESSION: Left-sided chest pain Supratherapeutic INR Acute pulmonary embolism UTI due to extended-spectrum beta lactamase (ESBL) producing Esdherichia coli Tachycardia Shortness of breath PLAN: Admit The scribe's documentation has been prepared under my direction and personally reviewed by me in its entirety. I confirm that the note above accurately reflects all work, treatment, procedures, and medical decision making performed by me. 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 Feels Safe at Home: Yes Smoking Status: Light tobacco smoker Tobacco Type: cigarettes Cigarettes Per Day: 20 Second Hand Exposure: No Hx Alcohol Use: No Hx Substance Use: No Results & Data Vital Signs Vital Signs - 24 hr 02/05/19 15:19 02/05/19 15:40 02/05/19 16:29 Temperature 36.5 C Temperature Source Oral Oral Sepsis Recent Fever Within 48 Hours No Sepsis Action Taken by Nursing No Action Required Pulse Rate 123 H Pulse Rate [Right Finger] Pulse Rhythm Regular Pulse Strength Normal Respiratory Rate 16 Respiratory Effort / Characteristics Non-Labored Respiratory Pattern Regular Blood Pressure 125/70 Blood Pressure [Left Arm] Blood Pressure Mean 88 Blood Pressure Mean [Left Arm] Blood Pressure Position Lying Blood Pressure Position [Left Arm] Pulse Oximetry 95 95 95 Oxygen Delivery Method Room Air Room Air Room Air 02/05/19 17:40 Temperature Temperature Source Sepsis Recent Fever Within 48 Hours Sepsis Action Taken by Nursing Pulse Rate Pulse Rate [Right Finger] 107 H Pulse Rhythm Pulse Strength Respiratory Rate 24 Respiratory Effort / Characteristics Respiratory Pattern Blood Pressure Blood Pressure [Left Arm] 121/93 Blood Pressure Mean Blood Pressure Mean [Left Arm] 102 Blood Pressure Position Blood Pressure Position [Left Arm] Sitting Pulse Oximetry 96 Oxygen Delivery Method Room Air Home Medications Current Medication List: was personally reviewed by me Laboratory Data Attestation: I reviewed the patient's lab results. Result diagrams: 02/05/19 16:45 02/05/19 16:45 Lab Results 02/05/19 02/05/19 02/05/19 Range/Units 16:45 16:45 16:45 WBC 9.31 (4.8-10.8) K/uL RBC 4.98 (4.7-6.1) M/uL Hgb 13.0 L (14.0-18.0) g/dL Hct 40.6 L (42-52) % MCV 81.5 (80-100) fL MCH 26.1 (25-34) pg MCHC 32.0 (32-36) g/dL RDW Std Deviation 50.1 H (36.4-46.3) fL RDW Coeff of Megan 16.8 H (11.5-14.5) % Plt Count 212 (130-400) K/uL MPV 10.1 (7.4-10.4) fL Immature Gran % (Auto) 0.8 % Neut % (Auto) 63.1 % Lymph % (Auto) 24.2 % [place] % (Auto) 8.6 % Eos % (Auto) 3.0 % Baso % (Auto) 0.3 % Immature Gran # (Auto) 0.07 H (0.00-0.02) K/uL Neut # (Auto) 5.88 (1.4-6.5) K/uL Lymph # (Auto) 2.25 (1.2-3.4) K/uL [place] # (Auto) 0.80 H (0.11-0.59) K/uL Eos # (Auto) 0.28 (0-0.5) K/uL Baso # (Auto) 0.03 (0-0.2) K/uL PT Cancelled INR Cancelled APTT Cancelled PTT Ratio Cancelled Sodium 140 (136-145) mmol/L Potassium 3.9 (3.5-5.1) mmol/L Chloride 104 (98-107) mmol/L Carbon Dioxide 29 (21-32) mmol/L Anion Gap 8.0 (3-11) BUN 11 (7-18) mg/dl Creatinine 1.15 (0.6-1.4) mg/dl Est Cr Clr Drug Dosing 137.5 ml/min Est GFR ( Amer) 86.7 Est GFR (Non-Af Amer) 74.8 BUN/Creatinine Ratio 9.6 L (10-20) Glucose 124 H (70-99) mg/dl Calcium 9.0 (8.5-10.1) mg/dl Total Bilirubin 0.4 (0.2-1) mg/dl AST 14 L (15-37) U/L ALT 36 (12-78) U/L Alkaline Phosphatase 116 (45-117) U/L Total Creatine Kinase 43 (39-308) U/L CK-MB (CK-2) < 1.0 (0.5-3.6) ng/ml CK/CKMB % Calc TNP Troponin I < 0.015 (0-0.045) ng/ml Total Protein 6.9 (6.4-8.2) gm/dl Albumin 3.2 L (3.4-5.0) gm/dl Globulin 3.7 (2.5-4.0) gm/dl Albumin/Globulin Ratio 0.9 (0.9-2) Lipase 80 (73-393) U/L 02/05/19 Range/Units 17:21 WBC (4.8-10.8) K/uL RBC (4.7-6.1) M/uL Hgb (14.0-18.0) g/dL Hct (42-52) % MCV (80-100) fL MCH (25-34) pg MCHC (32-36) g/dL RDW Std Deviation (36.4-46.3) fL RDW Coeff of Megan (11.5-14.5) % Plt Count (130-400) K/uL MPV (7.4-10.4) fL Immature Gran % (Auto) % Neut % (Auto) % Lymph % (Auto) % [place] % (Auto) % Eos % (Auto) % Baso % (Auto) % Immature Gran # (Auto) (0.00-0.02) K/uL Neut # (Auto) (1.4-6.5) K/uL Lymph # (Auto) (1.2-3.4) K/uL [place] # (Auto) (0.11-0.59) K/uL Eos # (Auto) (0-0.5) K/uL Baso # (Auto) (0-0.2) K/uL PT 56.6 H INR 6.3 H* APTT 44.9 H PTT Ratio 1.7 Sodium (136-145) mmol/L Potassium (3.5-5.1) mmol/L Chloride (98-107) mmol/L Carbon Dioxide (21-32) mmol/L Anion Gap (3-11) BUN (7-18) mg/dl Creatinine (0.6-1.4) mg/dl Est Cr Clr Drug Dosing ml/min Est GFR ( Amer) Est GFR (Non-Af Amer) BUN/Creatinine Ratio (10-20) Glucose (70-99) mg/dl Calcium (8.5-10.1) mg/dl Total Bilirubin (0.2-1) mg/dl AST (15-37) U/L ALT (12-78) U/L Alkaline Phosphatase (45-117) U/L Total Creatine Kinase (39-308) U/L CK-MB (CK-2) (0.5-3.6) ng/ml CK/CKMB % Calc Troponin I (0-0.045) ng/ml Total Protein (6.4-8.2) gm/dl Albumin (3.4-5.0) gm/dl Globulin (2.5-4.0) gm/dl Albumin/Globulin Ratio (0.9-2) Lipase (73-393) U/L Administered Medications Ioversol (Optiray 320 125ml) 99 ml IV ONCE PRN PRN Reason: Interaction Checking Stop: 02/09/19 18:12 Last Admin: 02/05/19 18:13 Dose: 99 ml Documented by: [id number] Discontinued Medications Acetaminophen (Ofirmev) 1,000 mg in 100 mls @ 400 mls/hr IV NOW STA Stop: 02/05/19 18:17 Last Admin: 02/05/19 18:50 Dose: Not Given Documented by: [id number] Piperacillin Sod/Tazobactam Sod (Zosyn) 4.5 gm in 120 mls @ 240 mls/hr IV NOW ONE Stop: 02/05/19 18:59 Last Admin: 02/05/19 18:42 Dose: 240 mls/hr Documented by: [id number] Morphine Sulfate (Morphine Sulfate) 4 mg IV NOW STA Stop: 02/05/19 18:31 Last Admin: 02/05/19 18:42 Dose: 4 mg Documented by: [id number] Ondansetron HCl (Zofran) 4 mg IV NOW STA Stop: 02/05/19 16:30 Last Admin: 02/05/19 16:48 Dose: 4 mg Documented by: [id number] Imaging Data Radiologist's Impression: Radiology results as stated below per my review and the radiologist's interpretation: CHEST CTA for PULMONARY ARTERIES CT DOSE: 1205.71 mGy.cm HISTORY: Atypical Chest Pain, eval for PE-has power picc TECHNIQUE: Multiaxial CT images of the chest were performed following the in travenous administration of contrast to evaluate the pulmonary arteries. Maximal intensity projection images were also obtained. A dose lowering technique was utilized adhering to the principles of ALARA. COMPARISON STUDY: Chest CTA 01/22/2019. FINDINGS: Normal caliber thoracic aorta with no evidence for dissection. The heart is normal in size. No pleural or pericardial effusions. Slight improvement in the previous identified bilateral lower lobe segmental/subsegmental pulmonary emboli. There is a single new pulmonary embolus seen within a left upper lobe subsegmental branch vessels seen on image 204. The visualized liver and spleen are unremarkable. No mediastinal or hilar lymphadenopathy. No fractures within the visualized osseous structures. Trace mucoid material within the trachea. No pneumothorax. A few bibasilar linear densities consistent with subsegmental atelectasis are scarring. No new focal lung consolidations to suggest pneumonia or pulmonary infarcts. Punctate calcified granuloma within the right lower lobe. IMPRESSION: 1. A single new subsegmental pulmonary embolus within the left upper lobe. 2. Slight improvement in the bilateral lower lobe pulmonary emboli seen on the prior study. 3. No new focal lung consolidations. Electronically signed by: Vidal Keller M.D. 02/05/2019 6:24 PM ECG Data Attestation: I personally reviewed and interpreted this ECG as follows: Indication: chest pain Rate (beats per minute): 117 Rhythm: sinus rhythm Findings: + nonspecific-ST abn; no PAC, no PVC, no ST depression and no ST elevation Comparison ECG Date: from (January 31, 2014) Change: the following changes noted (The nonspecific-ST abnormalities is more evident in the anterior leads) Blood Pressure Blood Pressure Findings: Normal blood pressure Discharge Plan Visit Data Chief Complaint: Chest Pain Stated Complaint: CHEST PAIN ED Provider: Lit Box Discharge Problem: Left-sided chest pain, Supratherapeutic INR, Acute pulmonary embolism, UTI due to extended-spectrum beta lactamase (ESBL) producing Escherichia coli, Shortness of breath, Tachycardia Patient Disposition: Being Evaluated by Hospitalist Forms Stand Alone Forms: Call Back Authorization, [facility] Prescriptions Prescriptions: No Action sennosides-docusate sodium [Senokot-S] 8.6-50 mg Tablet 1 tab PO .Q24H PRN (Reason: Constipation) RF: 0 gabapentin 300 mg Capsule 300 mg PO TID RF: 0 albuterol sulfate [ProAir HFA] 90 mcg/actuation Hfa Aerosol Inhaler 2 puff INHALATION Q4H PRN (Reason: Wheezing) RF: 0 ondansetron 4 mg Tablet,Disintegrating 4 mg PO Q4H PRN (Reason: Nausea And Vomiting) RF: 0 polyethylene glycol 3350 [Miralax] 17 gram powder in packet 17 g PO Q24H RF: 0 nitroglycerin [Nitrostat] 0.4 mg tablet, sublingual 0.4 mg Sublingual DIRECTED PRN (Reason: CHEST PAIN) RF: 0 docusate sodium 100 mg capsule 100 mg PO BID RF: 0 metoprolol succinate 25 mg tablet extended release 24 hr 25 mg PO BID RF: 0 bisacodyl 10 mg Suppository 10 mg ND DIRECTED PRN (Reason: Constipation) RF: 0 Fleet Enema 19-7 gram/118 mL Enema 133 ml ND DIRECTED PRN (Reason: Constipation) RF: 0 nystatin 100,000 unit/gram Powder 1 applic TOPICAL BID RF: 0 ipratropium-albuterol 0.5 mg-3 mg(2.5 mg base)/3 mL Solution For Nebulization 3 ml INHALATION Q4H PRN (Reason: Shortness Of Breath Or Wheezing) RF: 0 nicotine [Nicoderm CQ] 7 mg/24 hr Patch 24 Hour 7 mg transdermal QAM Qty: 0 RF: 0 magnesium oxide 400 mg (241.3 mg magnesium) Tablet 400 mg PO QAM Qty: 0 RF: 0 spironolactone 50 mg tablet 50 mg PO BID RF: 0 torsemide 10 mg Tablet 30 mg PO QAM 30 Days Qty: 90 RF: 0 finasteride [Proscar] 5 mg Tablet 5 mg PO QAM 30 Days Qty: 30 RF: 0 pantoprazole 40 mg Tablet,Delayed Release (Dr/Ec) 40 mg PO BID 30 Days Qty: 60 RF: 0 warfarin 2.5 mg Tablet 2.5 mg PO DAILY RF: 0 ertapenem [Invanz] 1 gram recon soln 1 gm IV DAILY 10 Days Qty: 10 RF: 0 hydroxyzine HCl 25 mg tablet 25 mg PO QID PRN (Reason: Anxiety) RF: 0 fluticasone propionate 50 mcg/actuation spray,suspension 1 spray Intranasal QAM RF: 0 aspirin [Ecotrin Low Strength] 81 mg tablet,delayed release (DR/EC) 81 mg PO QAM RF: 0 duloxetine 60 mg capsule,delayed release(DR/EC) 60 mg PO QAM RF: 0 isosorbide dinitrate 10 mg tablet 10 mg PO BID RF: 0 potassium chloride [Klor-Con M20] 20 mEq Tablet,Er Particles/Crystals PO DAILY RF: 0 prednisone 20 mg Tablet See Rx Instructions .ROUTE .COMPLEX RF: 0 warfarin [Coumadin] 10 mg Tablet 10 mg PO DAILY@1600 30 Days Qty: 30 RF: 0 Spiriva with HandiHaler 18 mcg capsule, w/inhalation device 2 puff inhalation Q4H PRN (Reason: Shortness Of Breath) RF: 0 Referrals Referrals: Owen Hogan MD [Primary Care Provider] - Discharge Problem: Acute pulmonary embolism Qualifiers: Pulmonary embolism type: unspecified Acute cor pulmonale presence: without acute cor pulmonale Qualified Code(s): I26.99 - Other pulmonary embolism without acute cor pulmonale The scribe's documentation has been prepared under my direction and personally reviewed by me in its entirety. I confirm that the note above accurately reflects all work, treatment, procedures, and medical decision making performed by me.
[2019-02-05 17:48] LABS: Partial Thromboplastin Ratio 1.7; Partial Thromboplastin Time 44.9 Seconds (21.0-31.0); Prothrombin Time 56.6 Seconds (9.0-12.0)
[2019-02-05 17:55] LABS: INR 6.3 (0.9-1.1)
[2019-02-05] MEDS ORDERED: ACETAMINOPHEN 1,000 MG/100 ML VIAL IV STA (18:03)
[2019-02-05] MEDS ORDERED: OPTIRAY 320 125ml IV PRN (18:13)
--- NOTE | 2019-02-05 18:26 | CT Scan Report ---
CHEST CTA for PULMONARY ARTERIES CT DOSE: 1205.71 mGy.cm HISTORY: Atypical Chest Pain, eval for PE-has power picc TECHNIQUE: Multiaxial CT images of the chest were performed following the intravenous administration of contrast to evaluate the pulmonary arteries. Maximal intensity projection images were also obtaine d. A dose lowering technique was utilized adhering to the principles of ALARA. COMPARISON STUDY: Chest CTA 01/22/2019. FINDINGS: Normal caliber thoracic aorta with no evidence for dissection. The heart is normal in size. No pleural or pericardial effusions. Slight improvement in the previous identified bilateral lower l obe segmental/subsegmental pulmonary emboli. There is a single new pulmonary embolus seen within a le ft upper lobe subsegmental branch vessels seen on image 204. The visualized liver and spleen are unre markable. No mediastinal or hilar lymphadenopathy. No fractures within the visualized osseous structu res. Trace mucoid material within the trachea. No pneumothorax. A few bibasilar linear densities cons istent with subsegmental atelectasis are scarring. No new focal lung consolidations to suggest pneumo liliana or pulmonary infarcts. Punctate calcified granuloma within the right lower lobe. IMPRESSION: 1. A single new subsegmental pulmonary embolus within the left upper lobe. 2. Slight improvement in the bilateral lower lobe pulmonary emboli seen on the prior study. 3. No new focal lung consolidations. Electronically signed by: Vidal Keller M.D. 02/05/2019 6:24 PM
[2019-02-05] MEDS ORDERED: MoRPHine SULFATE 4 MG/ML 1 ML CARP\\VIAL IV STA (18:30)
[2019-02-05] MEDS ORDERED: PIPERACILL/TAZOBAC CONSULT ACTIVE PRN (18:30)
[2019-02-05] MEDS ORDERED: PIPERACILLIN/TAZOBACTAM 4.5 GM/120 ML BAG IV ONE (18:30)
[2019-02-05] MEDS ORDERED: HYDROmorphone INJ 1 MG/ML SYRINGE IV STA (20:07)
[2019-02-05] MEDS ORDERED: NYSTATIN POWDER 15GM BTL EXT PRN (21:15)
[2019-02-05] MEDS ORDERED: ACETAMINOPHEN 325 MG TAB PO PRN (21:15)
[2019-02-05] MEDS ORDERED: ALBUT/IPRATROP 3MG/0.5MG NEB 3 ML VIAL INH PRN (21:15)
[2019-02-05] MEDS ORDERED: NITROGLYCERIN SL 0.4 MG/TAB TAB SL PRN ×2 (21:15)
[2019-02-05] MEDS ORDERED: ALBUTEROL HFA 8 GM INHALER INH PRN (21:15)
[2019-02-05] MEDS ORDERED: ONDANSETRON INJ 2 MG/ML 2 ML VIAL IV PRN (21:15)
[2019-02-05] MEDS ORDERED: SOD PHOSPHATE/SOD BIPHOSPHATE ENEMA 132 ML BTL PR PRN (21:15)
[2019-02-05] MEDS ORDERED: POLYETHYLENE (MIRALAX) 17 GM PACK PO PRN (21:15)
[2019-02-05] MEDS: OXYCODONE HCL IR 5 MG TAB (IMMEDIATE RELEASE) PO PRN (21:55)
[2019-02-05] MEDS: POTASSIUM CHLORIDE 10 MEQ TABCR PO SCH (22:31)
[2019-02-05] MEDS: DOCUSATE SODIUM 100 MG CAP PO SCH (22:31)
[2019-02-05] MEDS: SPIRONOLACTONE 25 MG TAB PO SCH (22:32)
[2019-02-05] MEDS: METOPROLOL SUCC 25MG EXT REL TAB PO SCH (22:32)
[2019-02-05] MEDS: GABAPENTIN 300 MG CAP PO SCH (22:34)
[2019-02-05] MEDS: MoRPHine SULFATE CR 15 MG TABCR PO SCH (22:52)
[2019-02-05] MEDS: LORazepam 1 MG TAB PO PRN (22:52)
--- NOTE | 2019-02-06 00:55 | History and Physical Report ---
DATE OF ADMISSION: 02/05/2019 CHIEF COMPLAINT: Chest pain, shortness of breath. HISTORY OF PRESENT ILLNESS: This is a 48-year-old male with past medical history significant for chronic diastolic congestive heart failure, pulmonary embolism, on Coumadin, hypertension, obesity hypoventilation, chronic obstructive pulmonary disease, tobacco use, morbid obesity, depression, anxiety, migraines, chronic pain with a history of recurrent hospitalizations for decompensated congestive heart failure and chronic pain who was recently in the hospital and got discharged on 02/02/2019. During the hospitalization, he was found to have urinary tract infection with extended spectrum beta-lactamase. He is on I.V. Invanz. He also had urinary retention. He has a history of benign prostatic hypertrophy. He is on Lloyd. He is supposed to follow with Dr. Barth office on 02/14/2019 who presents with chest pain, shortness of breath and in the Emergency Room, CTA of the chest done showed new subsegmental pulmonary embolus in the left upper lobe. His INR is 6.3. Actually, he was in the Emergency Room yesterday evening with the same chest pain and INR was 3.9 at that time and he was discharged home. The patient stated he just took his regular 2.5 mg of Coumadin, but in the previous recent admission, his INR was subtherapeutic at 1.3 and he has to be put on heparin bridge and he has been subtherapeutic few times previously and also a question of compliance with the medications. Cannot say at this time whether it is Coumadin failure or his noncompliance. As per patient he has been on Pradaxa before. It was stopped because no studies on obese patients as per patient.. He complains of chest pain and shortness of breath. He was resting comfortably, saturating fine on room air. He complains of chronic back pain, chest painand nausea. Denies any blurred vision. No sore throat. No difficulty swallowing. Appetite is okay. The urine is clear in the Lloyd bag. He had a small bowel movement today. Denies any blood in the stools or black stools. ALLERGIES: FENTANYL, ACETAMINOPHEN AND VALPROIC ACID. PAST MEDICAL HISTORY: As mentioned above. PAST SURGICAL HISTORY: History of appendectomy, history of foot surgery, history of colonoscopy; history of esophagogastroduodenoscopy and history of lumbar laminectomy. FAMILY HISTORY: Father of heart disease. SOCIAL HISTORY: Lives with his spouse. He has custody of 2 grandchildren, unemployed and disabled. No alcohol use. He takes prescription medications. Smokes as per records. MEDICATIONS: Invanz 1 g I.V. daily for a total of 10 days, Senokot-S 1 tablet daily p.r.n., gabapentin 300 mg p.o. t.i.d., albuterol 2 puffs inhalation q. 4 hours p.r.n., Zofran 4 mg p.o. q. 4 hours p.r.n., MiraLax 17 g p.o. daily, Nitrostat 0.4 mg sublingual p.r.n., Colace 100 mg p.o. b.i.d., Toprol-XL 25 mg p.o. b.i.d., bisacodyl 10 mg [place] as directed, Fleet enema as directed, nystatin 1 application topically b.i.d., DuoNebs 3 mL inhalation q. 4 hours p.r.n., nicotine 7 mg transdermal q.a.m., magnesium oxide 400 mg p.o. q.a.m., spironolactone 50 mg p.o. b.i.d., torsemide 30 mg p.o. q.a.m., Proscar 5 mg p.o. q.a.m., Protonix 40 mg p.o. b.i.d., Coumadin 2.5 mg p.o. daily, Demerol 50 mg p.o. q. 6 hours p.r.n., Ativan 1 mg p.o. q. 8 hours p.r.n., MS Contin 50 mg p.o. q. 12 hours, oxycodone 15 mg p.o. q. 4 hours p.r.n., hydroxyzine 25 mg p.o. q.i.d. p.r.n., Flonase 1 spray intranasally a.m., aspirin 81 mg p.o. a.m., duloxetine 60 mg p.o. q.a.m., isosorbide dinitrate 10 mg p.o. b.i.d., potassium chloride 20 mEq p.o. daily and Spiriva 2 inhalations q. 4 hours p.r.n. REVIEW OF SYMPTOMS: As per HPI. Rest of review of symptoms negative. PHYSICAL EXAMINATION: GENERAL: The patient is morbidly obese, not in acute distress. VITAL SIGNS: Temperature 36.5, pulse 104, respiratory rate 24, blood pressure 116/87 and oxygen 97% on room air. HEENT: No pallor. No icterus. Pupils are equal, round and reactive to light. NECK: No JVD. No neck mass. No carotid bruit. Supple. CARDIOVASCULAR: S1, S2 heard. Regular rate and rhythm. No murmur. No gallop. RESPIRATORY SYSTEM: Normal AP diameter. No accessory muscle use. No wheezing. No crackles. ABDOMEN: Soft. Bowel sounds present. No distention. No guarding. CENTRAL NERVOUS SYSTEM: Cranial nerves II through XII grossly intact. Nonfocal. EXTREMITIES: Mild pedal edema present. No erythema seen. LABORATORY DATA: WBC 9.3, hemoglobin 13, hematocrit 40.6 and platelets 212. PT 56.6. INR 6.3. APTT 44.9. Sodium 140, potassium 3.9, chloride 104, bicarbonate 29, BUN 11, creatinine 1.1, serum glucose 124, calcium 9, total bilirubin 0.4, AST 14, ALT 36, alkaline phosphatase 116 and total creatinine kinase 43. Troponin I less than 0.015. Lipase 18. CT of the chest shows a single new subsegmental pulmonary embolus in the left upper lobe, slight improvement in the bilateral lower lobe pulmonary emboli seen on the prior study. No focal lung consolidation seen. Electrocardiogram, sinus tachycardia at a rate of 170, nonspecific T wave abnormalities. ASSESSMENT AND PLAN: This is a 48-year-old male who presents with chest pains with complaints of shortness of breath and found to have acute left upper lobe subsegmental pulmonary embolism. 1. Pulmonary embolism, left new subsegmental pulmonary embolus in the left upper lobe. The patient is on Coumadin. INR is 6.3. Recently, his INR had been subtherapeutic. He has been apparently bridged on last admission. Possible question of compliance or question of Coumadin failure. As his INR is supratherapeutic currently , we will hold Coumadin for now and may need to discuss with Hematology Oncology or Pulmonary regarding change the anticoagulation or continuing Coumadin. The patient is not a good candidate for Lovenox because of his obesity. Monitor on Med/Surg Tele. Pain control. 2. History of chronic pain, continue home pain medications. 3. History of diastolic congestive heart failure, continue his home diuretics, seems to be stable. 4. History of diabetes, not on medications. We will follow HbA1c levels. 5. History of urinary tract infection with extended spectrum beta-lactamase, history of chronic urinary retention and has chronic Lloyd catheter, on I.V. Invanz to complete a 10-day course. 6. Chronic urinary retention, on Flomax. 7. History of benign prostatic hypertrophy, follow up with Dr. Barth's office. Has appointment on 02/14/2019. 8. Hypertension, on metoprolol, isosorbide and monitor blood pressure. 9.. Chronic obstructive pulmonary disease, hypoventilation with obesity, continue home inhalers. 10. Tobacco use disorder, recommend cessation. 11. Deep venous thrombosis prophylaxis, INR is supratherapeutic. DISPOSITION: Observation at Med/Surg Tele. Level 1 full code. Physical therapy and occupational therapy prior to discharge. Social Service to help with discharge planning. MTDD
[2019-02-06] MEDS: OXYCODONE HCL IR 5 MG TAB (IMMEDIATE RELEASE) PO PRN ×4 (02:37→14:04)
[2019-02-06] MEDS: TRAMADOL HCL 50 MG TABLET PO PRN ×3 (04:13→11:57)
[2019-02-06] MEDS: ISOSORBIDE DINITRATE 10 MG TAB PO SCH ×2 (06:15→11:58)
[2019-02-06 07:39] LABS: Basophils # (auto) 0.03 K/uL (0-0.2); Basophils % (auto) 0.4 %; Eosinophils # (auto) 0.38 K/uL (0-0.5); Eosinophils % (auto) 5.5 %; Hematocrit (blood only) 38.9 % (42-52); Hemoglobin 12.5 g/dL (14.0-18.0); Immature Granulocytes # (auto) 0.06 K/uL (0.00-0.02); Immature Granulocytes % (auto) 0.9 %; Lymphocytes # (auto) 1.73 K/uL (1.2-3.4); Mean Corpuscular Hgb Conc 32.1 g/dL (32-36); Mean Corpuscular Volume 82.2 fL (80-100); Mean Platelet Volume 9.5 fL (7.4-10.4); Monocytes # (auto) 0.79 K/uL (0.11-0.59); Monocytes % (auto) 11.4 %; Neutrophils # (auto) 3.92 K/uL (1.4-6.5); Neutrophils % (auto) 56.8 %; Platelet Count 184 K/uL (130-400); RDW Coefficient of Variation 16.8 % (11.5-14.5); RDW Standard Deviation 50.9 fL (36.4-46.3); Red Blood Count 4.73 M/uL (4.7-6.1); White Blood Count 6.91 K/uL (4.8-10.8)
[2019-02-06 08:00] LABS: Prothrombin Time 54.3 Seconds (9.0-12.0)
[2019-02-06 08:06] LABS: BUN Creatinine Ratio 11.6 (10-20); Creatinine Clr Calc Pharmacy 135.2 ml/min; Est GFR (African American) 84.9; Est GFR (Non-African American) 73.3; Potassium 3.7 mmol/L (3.5-5.1)
[2019-02-06] MEDS: MoRPHine SULFATE CR 15 MG TABCR PO SCH (08:12)
[2019-02-06] MEDS: GABAPENTIN 300 MG CAP PO SCH ×2 (08:13→13:57)
[2019-02-06] MEDS: SPIRONOLACTONE 25 MG TAB PO SCH (08:14)
[2019-02-06] MEDS: POTASSIUM CHLORIDE 10 MEQ TABCR PO SCH (08:14)
[2019-02-06] MEDS: METOPROLOL SUCC 25MG EXT REL TAB PO SCH (08:14)
[2019-02-06] MEDS: DOCUSATE SODIUM 100 MG CAP PO SCH (08:15)
[2019-02-06] MEDS ORDERED: TIOTROPIUM BROMIDE 5 PUFF/90 MCG INH INH SCH (09:00)
[2019-02-06] MEDS ORDERED: FINASTERIDE 5 MG TAB PO SCH (09:00)
[2019-02-06] MEDS ORDERED: ERTAPENEM SODIUM 1,000 MG in SODIUM CHLORIDE 0.9% 50 ML IV SCH (09:00)
[2019-02-06] MEDS ORDERED: ASPIRIN 81 MG ECTAB PO SCH (09:00)
[2019-02-06] MEDS ORDERED: FLUTICASONE PROPIONATE NA SPR 16 GM BTL SCH (09:00)
[2019-02-06] MEDS ORDERED: PANTOprazole 40 MG TAB PO SCH (09:00)
[2019-02-06] MEDS ORDERED: DULOXETINE HCL 60 MG CAP PO SCH (09:00)
[2019-02-06] MEDS ORDERED: MAGNESIUM OXIDE 400 MG TAB PO SCH (09:00)
[2019-02-06] MEDS ORDERED: TORSEMIDE 10 MG TAB PO SCH (09:00)
[2019-02-06] MEDS ORDERED: NICOTINE 21 MG/24 HR TDSY TD SCH (11:45)
[2019-02-06] MEDS: LORazepam 1 MG TAB PO PRN (12:02)
--- NOTE | 2019-02-06 13:59 | Hospitalist Progress Note ---
Date of Service February 06, 2019 Assessment & Plan (1) Chest pain: Noncardiac, Has chronic pain syndrome, says his chest pain is coming right after getting the infusion with IV Invanz Patient had 3 days infusion of Invanz in his last admission from Had no symptoms of complication then No rash Patient is updated his symptoms is not related to IV antibiotics CT chest with contrast shows left upper lobe subsegmental PE, Spoke with radiology, compared to previous CT chest with contrast: Done in September 2018, 01/22/2019, and yesterday 02/05/2019 Patient had bilateral PE on September, size of the pulmonary embolism continues to decrease, yesterday scan shows only small left-sided subsegmental clot Per radiology patient's clot burden continues to improve, showing smaller size/patient is getting adequate treatment/anticoagulation with Coumadin Has been at therapeutic for at least the last 1 week, Patient is counseled, does not appear to be chest pain secondary to blood clot, As it continues to improve over time Patient shifts his pain to back, Which is his chronic pain due to "pinched nerve Wants to know if he will be discharged with prescription for pain medications Patient has pain management appointment scheduled at 8:00 tomorrow 02/07/2019, then the hospital follow-up scheduled with family physician Dr. Hogan at 11:20 AM Patient is updated he is hemodynamically stable, no further treatment needed, he is on adequate treatment for pulmonary embolism, getting treatment for his E. 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 Hogan All his narcotic prescription should be controlled by his pain clinic Social service updated, discharge instruction discharge order placed, Patient is discharged home today (2) Supratherapeutic INR: INR elevated to 6, no evidence of bleed Had ER visit on Wednesday: INR was 3, patient said nobody asked him to hold Coumadin he continue to take it , Patient is instructed not to take any Coumadin today and tomorrow, has hospital follow-up scheduled at [facility] Will have PT/INR checked Prescription/order for PT/INR check given to the patient [place] [facility] notified (3) Chronic pain disorder: Patient complains of chest pain on the right side, Feels "something is not right," Was just discharged 3 days ago 02/02/2019, Dc DX ESBL UTI, Patient requested prescription for pain medication, as he ran out of his chronic pain meds His next pain management clinic appointment is on 02/07/2019: Had pain medication filled on 01/27/[address] Joseph Finch, requested pain scripts for 5 days to last over the weekend pt gave hand written list of no of narcotics needed : refuses to leave hospital with out narcotic script Patient was given 3-day supply of morphine sulfate/oxycodone per PDMP ; filled it on 02/02/19 , paid out of pocket Patient called [facility] next day 02/03/19 Requesting 5 more days of narcotic prescription ( as he was not given enough supply with hospital discharge ) Patient was given 2 more days of supply of oxycodone/morphine/tramadol by Dr Hogan to last till his appointment on 02/07/2019 Patient filled up the medication on 02/03/2019 Was in the ER on 02/04/2019 with chest pain, I called down the ER, updated veterinary practitioner ER attending regarding his pain medication issues, patient should not be discharged with any prescription for narcotic pain meds Was discharged home from ER 02/04/2019 Came to ER on Wednesday night 02/05/2019 with same complaint of chest pain INR was found to be elevated 6: ( Was 3 one day before ) Patient reports of taking the medication as instructed but reports of denies of taking any extra tablets CT chest with contrast shows small PE on the left subsegmental area, patient was admitted,:to floor discharged home today with out any narcotic pain medication script. (4) Pulmonary embolism: Chronic, Serial comparison of CT chest with contrast shows improvement of clot burden, gradual resolution, On Coumadin for chronic anticoagulation- very difficult to control INR Was tried on Pradaxa, which was discontinued as not much evidence/study done on obese population Subcu Lovenox is not appropriate secondary to morbid obesity, BMI more than 55 Patient has history of noncompliance, Multiple admissions in past with subtherapeutic INR Has been within therapeutic range in the last 1 week, ER visit, on 02/04/2019: INR was 3 ]\\ Presents with INR 6, without any bleeding complication Patient is asked to hold Coumadin\\ PT/INR check tomorrow 02/07/2019, will be followed -up closely by Coumadin clinic (5) Infection due to ESBL-producing Escherichia coli: Due to chronic indwelling catheter, chronic urinary retention Has PICC line, getting home antibiotic with IV Invanz Was discharged on total 10 days of treatment, PICC line will be discontinued after completion of IV antibiotic (6) UTI (urinary tract infection) due to urinary indwelling Lloyd catheter: On home IV Invanz per sensitivity, complete total 10 days of antibiotic CODE STATUS: Full code DVT prophylaxis: INR elevated Disposition: Patient is discharged home today Subjective Complaints of chest pain, back pain, request for all narcotics pain medications, Patient is updated regarding improvement of his pulmonary embolism/clot burden No evidence of any sepsis, Should complete his IV Invanz for ESBL E. coli, No active medical issue noted, stable to be discharged home Patient requested to have narcotic pain medication prescription on discharge, - request was declined no narcotic prescription will be given to patient on discharge Physical Exam Constitutional: no acute distress and not morbidly obese Eyes: PERRL, conjunctivae normal, anicteric sclerae ENMT: external ear and nose normal, oropharynx normal Neck: trachea midline, no thyromegaly Respiratory: normal respiratory effort, lungs clear to auscultation Cardiovascular: RRR, no murmur, no edema Gastrointestinal (Abdomen): Inspection/Auscultation: + abdomen distended and normal bowel sounds Percussion/Palpation: abdomen nontender Musculoskeletal: no cyanosis or clubbing, extremities motor strength 5/5 Right upper arm PICC line intact Neurologic: PERRL, EOMI, accommodation nl, no face palsy, no dysarthria Psychiatric: A+Ox3, euthymic affect Results & Data Vital Signs (Past 12 Hours) Vital Signs Temp Pulse Resp BP Pulse Ox 02/06/19 13:34 36.9 C 101 H 18 134/81 93 02/06/19 11:51 36.9 C 101 H 18 134/81 93 02/06/19 07:55 36.6 C 91 H 18 149/87 H 97 02/06/19 04:31 36.6 C 90 18 129/86 96 (1) Chest pain Chest pain type: unspecified Qualified Code(s): R07.9 - Chest pain, unspecified (2) Pulmonary embolism Pulmonary embolism type: unspecified Chronicity: chronic Acute cor pulmonale presence: without acute cor pulmonale Qualified Code(s): I27.82 - Chronic pulmonary embolism (3) UTI (urinary tract infection) due to urinary indwelling Lloyd catheter Indwelling urinary catheter type: indwelling urethral catheter Encounter type: initial encounter Qualified Code(s): T83.511A - Infection and inflammatory reaction due to indwelling urethral catheter, initial encounter; N39.0 - Urinary tract infection, site not specified
--- NOTE | 2019-02-06 15:01 | Discharge Summary ---
Date of Service February 06, 2019 Admission HPI Per Admitting Provider [facility], MD History and Physical Report Signed Patient: REJI AMAYA AAdmit Date: 02/05/19 MR#: [id number] Phy: Roxy Bradshaw M.D. Acct ID:[id number] Phy: Maci Hogan MD Date: 1970Fam Phy: Age: 48Location: 2N Sex: M Room/Bed: [facility] cc: Everardo Ibarra MD~ DICTATED BY: Everardo Ibarra MD DATE OF ADMISSION: 02/05/2019 CHIEF COMPLAINT: Chest pain, shortness of breath. HISTORY OF PRESENT ILLNESS: This is a 48-year-old male with past medical history significant for chronic diastolic congestive heart failure, pulmonary embolism, on Coumadin, hypertension, obesity hypoventilation, chronic obstructive pulmonary disease, tobacco use, morbid obesity, depression, anxiety, migraines, chronic pain with a history of recurrent hospitalizations for decompensated congestive heart failure and chronic pain who was recently in the hospital and got discharged on 02/02/2019. During the hospitalization, he was found to have urinary tract infection with extended spectrum beta-lactamase. He is on I.V. Invanz. He also had urinary retention. He has a history of benign prostatic hypertrophy. He is on Lloyd. He is supposed to follow with Dr. Barth office on 02/14/2019 who presents with chest pain, shortness of breath and in the Emergency Room, CTA of the chest done showed new subsegmental pulmonary embolus in the left upper lobe. His INR is 6.3. Actually, he was in the Emergency Room yesterday evening with the same chest pain and INR was 3.9 at that time and he was discharged home. The patient stated he just took his regular 2.5 mg of Coumadin, but in the previous recent admission, his INR was subtherapeutic at 1.3 and he has to be put on heparin bridge and he has been subtherapeutic few times previously and also a question of compliance with the medications. Cannot say at this time whether it is Coumadin failure or his noncompliance. As per patient he has been on Pradaxa before. It was stopped because no studies on obese patients as per patient.. He complains of chest pain and shortness of breath. He was resting comfortably, saturating fine on room air. He complains of chronic back pain, chest painand nausea. Denies any blurred vision. No sore throat. No difficulty swallowing. Appetite is okay. The urine is clear in the Lloyd bag. He had a small bowel movement today. Denies any blood in the stools or black stools. Principal Diagnosis NARCOTIC PAIN MEDICATION ABUSE/CHRONIC CHEST PAIN/ESBL UTI/HISTORY OF PULMONARY EMBOLISM ON CHRONIC ANTICOAGULATION Discharge Exam Constitutional no acute distress and not morbidly obese Eyes PERRL, conjunctivae normal, anicteric sclerae ENMT external ear and nose normal, oropharynx normal Neck trachea midline, no thyromegaly Respiratory normal respiratory effort, lungs clear to auscultation Cardiovascular RRR, no murmur, no edema Gastrointestinal (Abdomen) Inspection/Auscultation: + abdomen distended and normal bowel sounds Percussion/Palpation: abdomen nontender Musculoskeletal no cyanosis or clubbing, extremities motor strength 5/5 Neurologic PERRL, EOMI, accommodation nl, no face palsy, no dysarthria Psychiatric A+Ox3, euthymic affect Discharge Data Allergies Allergy/AdvReac Type Severity Reaction Status Date / Time fentanyl Allergy Intermediate RASH/HIVES/SKIN Verified 01/31/19 16:49 REDNESS acetaminophen AdvReac Intermediate Unknown Verified 01/31/19 16:49 valproic acid AdvReac Intermediate PANCREATITS Verified 01/31/19 16:49 Consultations 02/05/19 19:06 ED Decision to Admit Stat 02/05/19 21:15 Consult Case Management - Discharge Planning Routine Ordered Studies 02/05/19 16:29 CT angio chest PE protocol Stat Hospital Course (1) Chest pain: Noncardiac, Has chronic pain syndrome, says his chest pain is coming right after getting the infusion with IV Invanz Patient had 3 days infusion of Invanz in his last admission from Had no symptoms of complication then No rash Patient is updated his symptoms is not related to IV antibiotics CT chest with contrast shows left upper lobe subsegmental PE, Spoke with radiology, compared to previous CT chest with contrast: Done in September 2018, 01/22/2019, and yesterday 02/05/2019 Patient had bilateral PE on September, size of the pulmonary embolism continues to decrease, yesterday scan shows only small left-sided subsegmental clot Per radiology patient's clot burden continues to improve, showing smaller size/patient is getting adequate treatment/anticoagulation with Coumadin Has been at therapeutic for at least the last 1 week, Patient is counseled, does not appear to be chest pain secondary to blood clot, As it continues to improve over time Patient shifts his pain to back, Which is his chronic pain due to "pinched nerve Wants to know if he will be discharged with prescription for pain medications Patient has pain management appointment scheduled at 8:00 tomorrow 02/07/2019, then the hospital follow-up scheduled with family physician Dr. Hogan at 11:20 AM Patient is updated he is hemodynamically stable, no further treatment needed, he is on adequate treatment for pulmonary embolism, getting treatment for his E. 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 Hogna All his narcotic prescription should be controlled by his pain clinic Social service updated, discharge instruction discharge order placed, Patient is discharged home today (2) Supratherapeutic INR: INR elevated to 6, no evidence of bleed Had ER visit on Wednesday: INR was 3, patient said nobody asked him to hold Coumadin he continue to take it , Patient is instructed not to take any Coumadin today and tomorrow, has hospital follow-up scheduled at [facility] Will have PT/INR checked Prescription/order for PT/INR check given to the patient [facility] [facility] notified (3) Chronic pain disorder: Patient complains of chest pain on the right side, Feels "something is not right," Was just discharged 3 days ago 02/02/2019, Dc DX ESBL UTI, Patient requested prescription for pain medication, as he ran out of his chronic pain meds His next pain management clinic appointment is on 02/07/2019: Had pain medication filled on 01/27/[address] Joseph Finch, requested pain scripts for 5 days to last over the weekend pt gave hand written list of no of narcotics needed : refuses to leave hospital with out narcotic script Patient was given 3-day supply of morphine sulfate/oxycodone per PDMP ; filled it on 02/02/19 , paid out of pocket Patient called [facility] next day 02/03/19 Requesting 5 more days of narcotic prescription ( as he was not given enough supply with hospital discharge ) Patient was given 2 more days of supply of oxycodone/morphine/tramadol by Dr Hogan to last till his appointment on 02/07/2019 Patient filled up the medication on 02/03/2019 Was in the ER on 02/04/2019 with chest pain, I called down the ER, 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 (4) Pulmonary embolism: Chronic, Serial comparison of CT chest with contrast shows improvement of clot burden, gradual resolution, On Coumadin for chronic anticoagulation- very difficult to control INR Was tried on Pradaxa, which was discontinued as not much evidence/study done on obese population Subcu Lovenox is not appropriate secondary to morbid obesity, BMI more than 55 Patient has history of noncompliance, Multiple admissions in past with subtherapeutic INR Has been within therapeutic range in the last 1 week, ER visit, on 02/04/2019: INR was 3 ]\\ Presents with INR 6, without any bleeding complication Patient is asked to hold Coumadin\\ PT/INR check tomorrow 02/07/2019, will be followed -up closely by Coumadin clinic (5) Infection due to ESBL-producing Escherichia coli: Due to chronic indwelling catheter, chronic urinary retention Has PICC line, getting home antibiotic with IV Invanz Was discharged on total 10 days of treatment, PICC line will be discontinued after completion of IV antibiotic (6) UTI (urinary tract infection) due to urinary indwelling Lloyd catheter: On home IV Invanz per sensitivity, complete total 10 days of antibiotic CODE STATUS: Full code DVT prophylaxis: INR elevated Disposition: Patient is discharged home today Total Time Total Time Spent Total Time Spent (In Minutes): Approximately 50 minutes Total Time Includes: Examination of the Patient, Discharge Planning and Medication Reconciliation Discharge Plan Discharge Items Patient Disposition: Home - Home Health Services Reason For Visit: CHEST PAIN Discharge Diagnosis: CHEST PAIN /NON CARDIAC /PULMONARY EMBOLISM CHRONIC Discharge Goals: Decrease discomfort and Diagnostic testing Activity: Resume your previous activity Non-emergency contact: Primary Care Provider Call non-emergency contact if: you have any medication questions Follow-up/Referrals: Maci Hogan MD [Primary Care Provider] - 02/07/19 11:20 am Diet: Heart Healthy Other Ambulatory Orders: Prothrombin Time INR (Routine) Timeframe: [id number] Facility: [facility] - Location: Administration / Operations Ordered By: Roxy Arntet Provider Instructions: HOSPITAL FOLLOW UP WITH DR MACI HOGAN TOMORROW 02/07/2019 @ 11: 20 AM DO NOT TAKE COUMADIN TODAY AND TOMORROW PT /INR CHECK TOMORROW 02/07/19 DR KENDRICK OFFICE AWARE OF YOUR INR CHECK AND HOSPITAL FOLLOW UP Prescriptions: Continued gabapentin 300 mg Capsule 300 mg PO TID RF: 0 albuterol sulfate [ProAir HFA] 90 mcg/actuation Hfa Aerosol Inhaler 2 puff INHALATION Q4H PRN (Reason: Wheezing) RF: 0 ondansetron 4 mg Tablet,Disintegrating 4 mg PO Q4H PRN (Reason: Nausea And Vomiting) RF: 0 polyethylene glycol 3350 [Miralax] 17 gram powder in packet 17 g PO Q24H PRN (Reason: Constipation) RF: 0 nitroglycerin [Nitrostat] 0.4 mg tablet, sublingual 0.4 mg Sublingual DIRECTED PRN (Reason: CHEST PAIN) RF: 0 docusate sodium 100 mg capsule 100 mg PO BID RF: 0 metoprolol succinate 25 mg tablet extended release 24 hr 25 mg PO BID RF: 0 Fleet Enema 19-7 gram/118 mL Enema 133 ml HI DIRECTED PRN (Reason: Constipation) RF: 0 nystatin 100,000 unit/gram Powder 1 applic TOPICAL BID PRN (Reason: Skin Irritation) RF: 0 ipratropium-albuterol 0.5 mg-3 mg(2.5 mg base)/3 mL Solution For Nebulization 3 ml INHALATION Q4H PRN (Reason: Shortness Of Breath Or Wheezing) RF: 0 magnesium oxide 400 mg (241.3 mg magnesium) Tablet 400 mg PO QAM Qty: 0 RF: 0 spironolactone 50 mg tablet 50 mg PO BID RF: 0 torsemide 10 mg Tablet 30 mg PO QAM 30 Days Qty: 90 RF: 0 finasteride [Proscar] 5 mg Tablet 5 mg PO QAM 30 Days Qty: 30 RF: 0 warfarin 2.5 mg Tablet 2.5 mg PO DAILY RF: 0 ertapenem [Invanz] 1 gram recon soln 1 gm IV DAILY 10 Days Qty: 10 RF: 0 tramadol 50 mg tablet 50 mg PO Q4H PRN (Reason: Pain) RF: 0 oxycodone 15 mg tablet 15 mg PO Q4H PRN (Reason: Pain) RF: 0 morphine [MS Contin] 15 mg tablet extended release 15 mg PO Q12H RF: 0 lorazepam 1 mg tablet 1 mg PO TID PRN (Reason: Anxiety) RF: 0 potassium chloride 10 mEq tablet,ER particles/crystals 10 meq PO BID RF: 0 omeprazole 20 mg capsule,delayed release(DR/EC) 20 mg PO QAM RF: 0 hydroxyzine HCl 25 mg tablet 25 mg PO QID PRN (Reason: Anxiety) RF: 0 fluticasone propionate 50 mcg/actuation spray,suspension 2 spray Intranasal QAM RF: 0 aspirin [Ecotrin Low Strength] 81 mg tablet,delayed release (DR/EC) 81 mg PO QAM RF: 0 duloxetine 60 mg capsule,delayed release(DR/EC) 60 mg PO QAM RF: 0 isosorbide dinitrate 10 mg tablet 10 mg PO BID RF: 0 prednisone 20 mg Tablet See Rx Instructions .ROUTE .COMPLEX RF: 0 Spiriva with HandiHaler 18 mcg capsule, w/inhalation device 2 puff inhalation Q4H PRN (Reason: Shortness Of Breath) RF: 0 Stand-Alone Forms: Call Back Authorization, [facility] Discharge Orders: Discharge Order (Routine); Ordered 02/06/19 Ordered By: Roxy Bradshaw Admission Data Admit Date/Time: 02/05/19 20:15 Attending Provider: Roxy Bradshaw Admit Provider: Everardo Ibarra Primary Care Provider: Maci Hogan Other Providers: Everardo Ibarra Service: Telemetry Medical Other Interventions: Discharge Summary Assessment (RN) Last Done: 02/06/19 13:34 DC Date/Time DO NOT enter until pt leaves facility: 02/06/19 14:41
== END 2019-02-06 14:41 | disposition home health service (06) ==
LOC: ED 15:30 → 2N 15:30

== ENCOUNTER 2019-03-03 19:24 | Observation (INO) ==
[2019-03-03] MEDS ORDERED: ALBUT/IPRATROP 3MG/0.5MG NEB 3 ML VIAL NEB STA ×2 (19:56→21:41)
[2019-03-03 20:32] LABS: Basophils # (auto) 0.05 K/uL (0-0.2); Basophils % (auto) 0.4 %; Eosinophils % (auto) 2.6 %; Hematocrit (blood only) 34.3 % (42-52); Hemoglobin 11.1 g/dL (14.0-18.0); Immature Granulocytes # (auto) 0.06 K/uL (0.00-0.02); Immature Granulocytes % (auto) 0.5 %; Lymphocytes # (auto) 2.34 K/uL (1.2-3.4); Lymphocytes % (auto) 20.3 %; Mean Corpuscular Hgb Conc 32.4 g/dL (32-36); Mean Corpuscular Volume 79.6 fL (80-100); Mean Platelet Volume 9.4 fL (7.4-10.4); Monocytes % (auto) 6.1 %; Neutrophils # (auto) 8.09 K/uL (1.4-6.5); Neutrophils % (auto) 70.1 %; Platelet Count 342 K/uL (130-400); RDW Coefficient of Variation 16.8 % (11.5-14.5); RDW Standard Deviation 48.9 fL (36.4-46.3); Red Blood Count 4.31 M/uL (4.7-6.1); White Blood Count 11.54 K/uL (4.8-10.8)
--- NOTE | 2019-03-03 20:32 | XRay Report ---
XR chest 1V portable CLINICAL HISTORY: Shortness of breath and chest pain. COMPARISON STUDY: Chest radiograph and chest CT February 11, 2019. FINDINGS: Lung volumes are normal. There is no pneumothorax or pleural effusion. There is no consolid ation or evidence for pulmonary edema. Cardiomediastinal silhouette is stable. Appearance of the ches t is unchanged. IMPRESSION: No acute cardiopulmonary findings. Electronically signed by: Evelio Corbin M.D. 03/03/2019 8:31 PM
[2019-03-03 20:54] LABS: Prothrombin Time 54.9 Seconds (9.0-12.0)
[2019-03-03 20:55] LABS: Alanine Aminotransferase 32 U/L (12-78); Albumin Globulin Ratio 0.7 (0.9-2); Albumin Level 2.7 gm/dl (3.4-5.0); Alkaline Phosphatase 102 U/L (45-117); Aspartate Aminotransferase 28 U/L (15-37); BUN Creatinine Ratio 4.4 (10-20); Bilirubin,Total 0.3 mg/dl (0.2-1); Blood Urea Nitrogen 4 mg/dl (7-18); Calcium 9.2 mg/dl (8.5-10.1); Carbon Dioxide 29 mmol/L (21-32); Chloride 110 mmol/L (98-107); Creatinine Clr Calc Pharmacy 176.1 ml/min; Est GFR (African American) 109.3; Est GFR (Non-African American) 94.3; Globulin 3.6 gm/dl (2.5-4.0); Glucose 102 mg/dl (70-99); Magnesium 1.9 mg/dl (1.8-2.4); Potassium 4.1 mmol/L (3.5-5.1); Sodium 144 mmol/L (136-145); Total Protein 6.3 gm/dl (6.4-8.2); Troponin I < 0.015 ng/ml (0-0.045)
[2019-03-03 21:10] LABS: INR 6.1 (0.9-1.1)
[2019-03-03 22:19] LABS: NT Pro B Type Natriuretic Pept 183 pg/ml (0-450)
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
[2019-03-03] MEDS ORDERED: HYDROmorphone INJ 1 MG/ML SYRINGE IV STA (23:46)
[2019-03-04] MEDS ORDERED: ALBUT/IPRATROP 3MG/0.5MG NEB 3 ML VIAL INH PRN (00:37)
[2019-03-04] MEDS ORDERED: NITROGLYCERIN SL 0.4 MG/TAB TAB SL PRN (00:37)
[2019-03-04] MEDS ORDERED: SOD PHOSPHATE/SOD BIPHOSPHATE ENEMA 132 ML BTL PR PRN (00:37)
[2019-03-04] MEDS ORDERED: ONDANSETRON 4 MG OD TAB PO PRN (00:37)
[2019-03-04] MEDS ORDERED: NYSTATIN POWDER 15GM BTL EXT PRN (00:37)
[2019-03-04] MEDS ORDERED: ALBUTEROL HFA 8 GM INHALER INH PRN (00:37)
[2019-03-04] MEDS ORDERED: methylPREDNISolone 125 MG/2 ML VIAL IV STA (00:37)
[2019-03-04] MEDS ORDERED: ACETAMINOPHEN 325 MG TAB PO PRN (00:37)
[2019-03-04] MEDS ORDERED: methylPREDNISolone 60 MG in SYRINGE 0 ML IV SCH (01:00)
--- NOTE | 2019-03-04 01:04 | History and Physical Report ---
DATE OF ADMISSION: 03/03/2019 CHIEF COMPLAINT: Chest pain, syncope and shortness of breath. HISTORY OF PRESENT ILLNESS: This is a 48-year-old male with past medical history significant for chronic diastolic congestive heart failure, pulmonary embolism, on Coumadin, hypertension, morbid obesity, chronic obstructive pulmonary disease, ongoing tobacco use, depression, anxiety, migraines, chronic pain, history of recurrent hospitalizations for decompensated congestive heart failure and chronic pain and also recently had extended spectrum beta-lactamase urinary tract infection treated with I.V. Invanz for 4-5 days, history of benign prostatic hypertrophy, on Lloyd, he has an appointment with urology next week, comes in because of chest pain which is chronic for him and also he is stating that whenever he stands up, he is passing out for a few seconds and also he is gaining weight. He was discharged on 02/11/2019, saw primary care physician a couple of times on 02/14/2019 and also on 02/27/2019. Because he was complaining of increasing lower extremity edema, primary care physician increased TORSEMIDE TO 100MG DAILY on 02/27/2019 as his weight was increased from 453 to 457 pounds on February 27 and today it is 461 pounds. He states he is getting short of breath, he barely can walk at home because of his increasing weight. He states he is compliant with taking his medications regularly. He is restrictive with salt intake and seems compliant with fluid intake He has chronic headaches. No blurred vision. No earache. No sore throat. No difficulty swallowing. Appetite is okay. No cough. Complains of some right upper quadrant abdominal discomfort. He has his chronic back pain. He is still on Lloyd. Urine looks clear. Denies any blood in stools or black stools. Lower extremity edema present. Hemodynamically stable in the Emergency Room. ALLERGIES: DEPAKOTE, FENTANYL AND TYLENOL. PAST MEDICAL HISTORY: As mentioned above. PAST SURGICAL HISTORY: Colonoscopy with biposy, EGD with EUS,repair of left extensor tendons finger. MEDICATIONS: The patient is on Flexeril 10 mg p.o. b.i.d., gabapentin 300 mg p.o. t.i.d., Torsemide 100 mg p.o. daily, Proscar 5 mg p.o. daily, magnesium oxide 400 mg p.o. daily, Coumadin 5 mg as directed, Ativan 1 mg p.o. t.i.d. p.r.n., Cymbalta 60 mg p.o. daily, Zofran 4 mg p.o. t.i.d. p.r.n., hydroxyzine p.r.n., oxycodone IR 15 mg p.o. q. 4 hours p.r.n., aspirin 81 mg p.o. daily, Colace 100 mg p.o. b.i.d., Isordil 10 mg p.o. b.i.d., metoprolol succinate 25 mg p.o. b.i.d., nicotine patch, nitroglycerin 0.4 mg sublingual p.r.n., omeprazole 20 mg daily, potassium chloride 20 mEq daily, spironolactone 50 mg p.o. b.i.d., Flomax 0.4 mg p.o. daily, Spiriva 18 mcg inhalation daily, MS Contin 50 mg p.o. b.i.d., tramadol 50 mg p.o. q. 6 hours p.r.n., MiraLax 17 g p.o. daily p.r.n., DuoNebs, nebs q. 4 hours p.r.n. and Flonase daily. FAMILY HISTORY: Significant for father had aneurysm. Mother had musculoskeletal disorder. Sister has breast cancer. Maternal grandfather has myocardial infarction in 50s. Maternal grandmother has myocardial infarction in 80s. Paternal grandfather has chronic obstructive pulmonary disease. SOCIAL HISTORY: Lives with his and grandkids, smokes about a pack a day. No alcohol history. On prescription pain medications. REVIEW OF SYMPTOMS: As per HPI. Rest of review of systems negative. PHYSICAL EXAMINATION: GENERAL: The patient is alert and oriented, not in acute distress, morbidly obese. VITAL SIGNS: Temperature 36.6, pulse 109, respiratory rate 22, blood pressure 130/80 and oxygen 94% on room air. HEENT: No pallor. No icterus. Pupils are equal, round and reactive to light. NECK: No JVD. No neck masses. Supple. CARDIOVASCULAR: S1, S2 heard. Regular rate and rhythm. No murmurs. RESPIRATORY SYSTEM: Normal AP diameter. No accessory muscle use. Mild bilateral wheezing. No crackles. ABDOMEN: Soft. Bowel sounds present. RUQ tenderness No guarding. No rigidity. CENTRAL NERVOUS SYSTEM: Cranial nerves II through XII grossly intact. Nonfocal. EXTREMITIES: Lower extremity gross edema present with mild erythema. LABORATORY DATA: WBC 11.5, hemoglobin 11.1, hematocrit 34.3 and platelets 342. PT 54.9. INR 6.1. Sodium 144, potassium 4.1, chloride 110, bicarbonate 29, BUN 4, creatinine 0.9, serum glucose 102, calcium 9.2, magnesium 1.9, total bilirubin 0.3, AST 28 and ALT 32. Alkaline phosphatase is 102. Troponin I less than 0.015. Chest x-ray, no acute cardiopulmonary findings. Electrocardiogram, sinus tachycardia at a rate of 109, no change from previous electrocardiogram. ASSESSMENT AND PLAN: This is a 48-year-old male who presents with chest pain and syncope. 1. Chest pain and syncope. The patient has chronic history of chest pains says lately passing out for few seconds when he stands up. We will monitor in the tele floor. We will follow serial cardiac enzymes, echocardiogram and consult cardiology for further recommendations. 2. Shortness of breath and acute diastolic congestive heart failure. The patient is increasing in weight . Says he is compliant ? taking his medications and following dietary restrictions. We will place him on I.V. Lasix 40 t.i.d. Follow daily weights, I's and O's, consult cardiology for further recommendations 3. History of pulmonary embolism, on Coumadin. Holding as INR is supratherapeutic. 4. Chronic pain syndrome, continue his home pain medications . 5. History of extended spectrum beta-lactamase recently treated with I.V. Invanz. 6. Diabetes, not on medications. We will follow his blood sugars. 7. Possible mild chronic obstructive pulmonary disease exacerbation. The patient is wheezing and still smoking about a pack a day. trying to quit with Nicotine patch, short course of prednisone, nebs around the clock and p.r.n. 8. Benign prostatic hypertrophy, urinary retention, on Lloyd catheter. Continue Proscar and Flomax, has appointment next week with Urology 9. Depression. Continue Cymbalta. 10. Right upper quadrant abdominal pain and a history of gallbladder sludge. We will get a gallbladder ultrasound. 11. Hypertension, on metoprolol, isosorbide. We will monitor blood pressure. 12. Supratheurapeutic INR . INR 6.1. Holding Coumadin follow repeat labs. 13. Deep venous thrombosis prophylaxis, INR is supratherapeutic. DISPOSITION: Admit to tele. Level 1 full code. Physical therapy and occupational therapy prior to discharge. Social Service to help with discharge planning. [place]
[2019-03-04] MEDS: FUROSEMIDE 40 MG in SYRINGE 0 ML IV SCH ×4 (01:08→19:59)
[2019-03-04] MEDS: OXYCODONE HCL IR 5 MG TAB (IMMEDIATE RELEASE) PO PRN ×6 (01:12→22:55)
[2019-03-04] MEDS: MoRPHine SULFATE CR 15 MG TABCR PO SCH ×3 (01:13→20:07)
[2019-03-04] MEDS: LORazepam 1 MG TAB PO PRN ×3 (01:13→23:48)
[2019-03-04] MEDS: NICOTINE 21 MG/24 HR TDSY TD SCH (01:46)
[2019-03-04] MEDS: TRAMADOL HCL 50 MG TABLET PO PRN ×4 (03:51→22:55)
[2019-03-04 06:51] LABS: Basophils # (auto) 0.02 K/uL (0-0.2); Basophils % (auto) 0.2 %; Eosinophils # (auto) 0.01 K/uL (0-0.5); Eosinophils % (auto) 0.1 %; Hematocrit (blood only) 34.9 % (42-52); Hemoglobin 11.1 g/dL (14.0-18.0); Immature Granulocytes # (auto) 0.05 K/uL (0.00-0.02); Immature Granulocytes % (auto) 0.5 %; Lymphocytes # (auto) 0.96 K/uL (1.2-3.4); Lymphocytes % (auto) 8.8 %; Mean Corpuscular Hgb Conc 31.8 g/dL (32-36); Mean Corpuscular Volume 78.6 fL (80-100); Mean Platelet Volume 9.6 fL (7.4-10.4); Monocytes # (auto) 0.14 K/uL (0.11-0.59); Monocytes % (auto) 1.3 %; Neutrophils # (auto) 9.79 K/uL (1.4-6.5); Neutrophils % (auto) 89.1 %; Platelet Count 338 K/uL (130-400); RDW Coefficient of Variation 16.7 % (11.5-14.5); Red Blood Count 4.44 M/uL (4.7-6.1); White Blood Count 10.97 K/uL (4.8-10.8)
[2019-03-04 07:09] LABS: BUN Creatinine Ratio 6.4 (10-20); Calcium 8.9 mg/dl (8.5-10.1); Creatinine Clr Calc Pharmacy 175.9 ml/min; Est GFR (African American) 109.3; Est GFR (Non-African American) 94.3; Magnesium 1.8 mg/dl (1.8-2.4); Potassium 4.1 mmol/L (3.5-5.1)
[2019-03-04] MEDS: ALBUT/IPRATROP 3MG/0.5MG NEB 3 ML VIAL NEB SCH ×3 (07:11→19:18)
[2019-03-04 07:14] LABS: Prothrombin Time 84.9 Seconds (9.0-12.0)
[2019-03-04 07:16] LABS: INR 9.8 (0.9-1.1)
--- NOTE | 2019-03-04 09:28 | Ultrasound Report ---
US gallbladder CLINICAL HISTORY: 48 years-old Male presenting with ruq abdominal pain. TECHNIQUE: Real-time grayscale and limited color Doppler ultrasound imaging of the abdomen limited to the right upper quadrant was performed. COMPARISON: 01/29/2019. FINDINGS: Pancreas: Largely obscured due to overlying bowel gas. Liver: Markedly hyperechogenic parenchyma with obscuration of the right hemidiaphragm, likely indicat ing marked hepatic steatosis. The liver measures 24.0 cm in maximal sagittal dimension. No sonographi c evidence of hepatic mass. Main portal vein patent with normal directional flow. Biliary: No intrahepatic biliary ductal dilatation. Common bile duct measures up to 5 mm in diameter. Gallbladder: No evidence of gallstones, gallbladder wall thickening, gallbladder distention, or peric holecystic fluid or inflammatory change. Right kidney: Normal in appearance without evidence of hydronephrosis. Ascites: None. Other: None. IMPRESSION: 1. No cholelithiasis or biliary ductal dilatation. 2. Hepatic steatosis and hepatomegaly. Correlate with liver function tests to exclude steatohepatiti s as a cause for abdominal pain. Electronically signed by: Joey Merida M.D. 03/04/2019 9:27 AM
[2019-03-04] MEDS ORDERED: PHYTONADIONE 5 MG TAB PO STA (09:35)
[2019-03-04] MEDS: ISOSORBIDE DINITRATE 10 MG TAB PO SCH ×2 (09:36→12:12)
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
[2019-03-04] MEDS: SPIRONOLACTONE 25 MG TAB PO SCH ×2 (09:37→18:19)
[2019-03-04] MEDS: ASPIRIN 81 MG ECTAB PO SCH (09:47)
[2019-03-04] MEDS: DOCUSATE SODIUM 100 MG CAP PO SCH ×2 (09:47→19:58)
[2019-03-04] MEDS: DULOXETINE HCL 60 MG CAP PO SCH (09:47)
[2019-03-04] MEDS: CYCLOBENZAPRINE HCL 10 MG TAB PO SCH ×2 (09:47→19:58)
[2019-03-04] MEDS: FLUTICASONE PROPIONATE NA SPR 16 GM BTL SCH (09:48)
[2019-03-04] MEDS: TAMSULOSIN HCL 0.4 MG CAP PO SCH (09:48)
[2019-03-04] MEDS: GABAPENTIN 300 MG CAP PO SCH ×3 (09:49→20:04)
[2019-03-04] MEDS: POTASSIUM CHLORIDE 10 MEQ TABCR PO SCH ×2 (09:49→19:59)
[2019-03-04] MEDS: MAGNESIUM OXIDE 400 MG TAB PO SCH (09:49)
[2019-03-04] MEDS: predniSONE 20 MG TAB PO SCH (09:50)
[2019-03-04] MEDS: PANTOprazole 40 MG TAB PO SCH (09:50)
[2019-03-04] MEDS: FINASTERIDE 5 MG TAB PO SCH (09:50)
[2019-03-04] MEDS: TIOTROPIUM BROMIDE 5 PUFF/90 MCG INH INH SCH (09:51)
[2019-03-04] MEDS: METOPROLOL SUCC 25MG EXT REL TAB PO SCH ×2 (09:52→20:05)
[2019-03-04] MEDS ORDERED: HYDROmorphone INJ 1 MG/ML SYRINGE IV STA ×2 (10:37→20:27)
--- NOTE | 2019-03-04 13:17 | Hospitalist Progress Note ---
Date of Service March 04, 2019 Assessment & Plan (1) Acute on chronic diastolic congestive heart failure, NYHA class 3: Admitted with symptomatic fluid overload About 40 pounds weight gain last 1 month he Failed outpatient therapy with increasing dose of diuretics Chest x-ray no acute CHF and proBNP is normal Appreciate cardiology input and recommendation Has been on Lasix 40 mg IV 3 times daily and Aldactone 50 mg twice daily Fluid restriction and monitor intake output and electrolyte Present on Admission?: Yes (2) Chest pain: Chest pain seems to be noncardiac Serial troponin were not elevated and EKG did not show any acute change Doubt any ACS Await echo Present on Admission?: Yes (3) Indwelling Lloyd catheter present: Management as per urology (4) Infection due to ESBL-producing Escherichia coli: History of ESBL UTI but did not finish the course of Augmentin recently UA suggestive of infection without any symptoms Await culture before starting antibiotic (5) Opioid dependence: Has chronic back pain under care of pain therapist No prescription of narcotics will be given on discharge Will not change any doses and/or frequency of narcotics while in the hospital He may get extra doses of intravenous pain medications while in the hospital to increase his mobility (6) Pulmonary embolism: History of pulmonary embolism on oral Coumadin INR level supratherapeutic Received 5 mg of vitamin K this morning We will monitor INR in the hospital (7) Depression with anxiety: We will continue current medications (8) Chronic back pain: As above No prescriptions of narcotics will be given on discharge Increasing back pain this morning-received 1 dose of Dilaudid of 1 mg IV Other medical conditions remained stable We will get PT and OT evaluation when appropriate Possible discharge in 2 to 3 days Subjective 03/04 Patient was seen and examined in telemetry unit He is a 48-year-old male obese with significant complicated past medical history as mentioned in H&P was admitted with symptoms of fluid overload He gained about 40 pounds over the last 1 month Failed outpatient treatment with increasing dose of torsemide and Aldactone Admitted with chest pain and shortness of breath Complains to have severe back pain this morning with radiation of pain along the lower extremities Review of Systems Review of Systems: All systems reviewed and are unremarkable except as noted below Constitutional: + body aches, + weakness and + weight gain Respiratory: no dyspnea Musculoskeletal: Localized tenderness lumbar spine Physical Exam Physical Exam: Morbidly obese lying in bed with discomfort secondary to back pain and pain in the legs Constitutional: + acute distress (Increasing back pain and leg pain) and + ill appearing Eyes: PERRL, conjunctivae normal, anicteric sclerae ENMT: external ear and nose normal, oropharynx normal Neck: trachea midline, no thyromegaly Respiratory: normal respiratory effort Auscultation: + diminished lung sounds (Both bases with minimal crackles) and + crackles (Minimal at the bases) Cardiovascular: Rate/Rhythm: regular rate Heart Sounds: no murmur Gastrointestinal (Abdomen): Inspection/Auscultation: + abdomen distended and normal bowel sounds Percussion/Palpation: abdomen soft; abdomen nontender Musculoskeletal: Localized tenderness lower lumbar spine. Movement of the legs produced increasing pain Neurologic: Alert, 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. Generally weak and left Lymphatic: no cervical or axillary lymphadenopathy Results & Data Vital Signs (Past 12 Hours) Vital Signs Temp Pulse Resp BP Pulse Ox 03/04/19 11:48 36.8 C 108 H 20 122/70 91 03/04/19 07:11 98 H 16 92 03/04/19 03:56 36.7 C 98 H 18 148/82 H 92 Laboratory Results Short CBC 03/03/19 03/04/19 Range/Units 20:25 05:44 WBC 11.54 H 10.97 H (4.8-10.8) K/uL Hgb 11.1 L 11.1 L (14.0-18.0) g/dL Hct 34.3 L 34.9 L (42-52) % Plt Count 342 338 (130-400) K/uL BMP 03/03/19 03/04/19 20:25 06:44 Sodium 144 142 Potassium 4.1 4.1 Chloride 110 H 108 H Carbon Dioxide 29 27 BUN 4 L 6 L Creatinine 0.95 0.95 Glucose 102 H 182 H Calcium 9.2 8.9 Cardiac Enzymes 03/03/19 03/04/19 03/04/19 Range/Units 20:25 06:44 10:51 Troponin I < 0.015 < 0.015 < 0.015 (0-0.045) ng/ml Liver Function 03/03/19 Range/Units 20:25 Total Bilirubin 0.3 (0.2-1) mg/dl AST 28 (15-37) U/L ALT 32 (12-78) U/L Alkaline Phosphatase 102 (45-117) U/L Albumin 2.7 L (3.4-5.0) gm/dl Medications Administered Current Inpatient Medications Acetaminophen (Tylenol) 650 mg PO Q4H PRN PRN Reason: Pain or Fever Stop: 04/03/19 00:36 Albuterol (Ventolin Hfa) 2 puffs INH Q4H PRN PRN Reason: Wheezing Albuterol (Duoneb) 3 ml NEB TIDR [facility] Stop: 04/03/19 08:59 Last Admin: 03/04/19 07:11 Dose: 3 ml Documented by: Albuterol (Duoneb) 3 ml INH Q4H PRN PRN Reason: Shortness Of Breath Or Wheezing Stop: 04/03/19 00:36 Aspirin (Ecotrin Ectab) [facility] [place] Stop: 04/03/19 08:59 Last Admin: 03/04/19 09:47 Dose: 81 mg Documented by: Cyclobenzaprine HCl (Flexeril) 10 mg PO BID [facility] Stop: 04/03/19 08:59 Last Admin: 03/04/19 09:47 Dose: 10 mg Documented by: Docusate Sodium (Colace) 100 mg PO BID [facility] Stop: 04/03/19 08:59 Last Admin: 03/04/19 09:47 Dose: 100 mg Documented by: Duloxetine HCl (Cymbalta) 60 [facility] [place] Stop: 04/03/19 08:59 Last Admin: 03/04/19 09:47 Dose: 60 mg Documented by: Finasteride (Proscar) 5 mg PO [facility] Stop: 04/03/19 08:59 Last Admin: 03/04/19 09:50 Dose: 5 mg Documented by: Fluticasone Propionate (Flonase) 2 sprays NA QAM [facility] Stop: 04/03/19 08:59 Last Admin: 03/04/19 09:48 Dose: 2 sprays Documented by: Gabapentin (Neurontin) 300 mg PO TID [facility] Stop: 04/03/19 08:59 Last Admin: 03/04/19 09:49 Dose: 300 mg Documented by: Hydroxyzine HCl (Vistaril) 25 mg PO QID PRN PRN Reason: Anxiety Stop: 04/03/19 00:36 Furosemide 40 mg/ Syringe 4 mls @ 4 mls/min IV TID [facility] Stop: 04/03/19 00:36 Last Admin: 03/04/19 09:35 Dose: 4 mls/min Documented by: Isosorbide Dinitrate (Isordil) 10 mg PO BID@0700,1200 [facility] Stop: 04/03/19 06:59 Last Admin: 03/04/19 12:12 Dose: 10 mg Documented by: Lorazepam (Ativan) 1 mg PO TID PRN PRN Reason: Anxiety Stop: 04/03/19 00:36 Last Admin: 03/04/19 01:13 Dose: 1 mg Documented by: Magnesium Oxide (Mag-Ox) 400 mg PO QAM [facility] Stop: 04/03/19 08:59 Last Admin: 03/04/19 09:49 Dose: 400 mg Documented by: Metoprolol Succinate (Toprol Xl) 25 mg PO BID [facility] Stop: 04/03/19 08:59 Last Admin: 03/04/19 09:52 Dose: 25 mg Documented by: Miscellaneous (Remove Nicoderm Patch) 1 ea N/A HS [facility] Stop: 04/03/19 00:36 Last Admin: 03/04/19 01:07 Dose: Not Given Documented by: Morphine Sulfate (Ms Contin) 15 mg PO Q12 [facility] Stop: 03/18/19 00:36 Last Admin: 03/04/19 09:42 Dose: 15 mg Documented by: Nicotine (Nicoderm Cq) 21 mg TD DAILY [facility] Stop: 04/03/19 00:36 Last Admin: 03/04/19 01:46 Dose: 21 mg Documented by: Nitroglycerin (Nitrostat) 0.4 mg SL UD PRN PRN Reason: Chest Pain Stop: 04/03/19 00:36 Nystatin (Mycostatin) 1 appln EXT BID PRN PRN Reason: Skin Irritation Stop: 04/03/19 00:36 Ondansetron HCl (Zofran Odt) 4 mg PO Q4H PRN PRN Reason: Nausea And Vomiting Stop: 04/03/19 00:36 Ondansetron HCl (Zofran) 4 mg IV Q6H PRN PRN Reason: Nausea Stop: 04/03/19 00:36 Oxycodone HCl (Roxicodone Immediate Rel) 15 mg PO Q4H PRN PRN Reason: Pain Stop: 03/18/19 00:36 Last Admin: 03/04/19 09:42 Dose: 15 mg Documented by: Pantoprazole Sodium (Protonix) 40 mg PO QAM [facility] Stop: 04/03/19 08:59 Last Admin: 03/04/19 09:50 Dose: 40 mg Documented by: Polyethylene Glycol (Miralax Powder Packet) 17 gm PO Q24H PRN PRN Reason: Constipation Stop: 04/03/19 00:36 Potassium Chloride (Klor-Con M10) 10 meq PO BID [facility] Stop: 04/03/19 08:59 Last Admin: 03/04/19 09:49 Dose: 10 meq Documented by: Prednisone (Prednisone) 40 mg PO DAILY [facility] Stop: 04/03/19 08:59 Last Admin: 03/04/19 09:50 Dose: 40 mg Documented by: Sodium Biphosphate/Sodium Phosphate (Fleet Enema) 133 ml [place] UD PRN PRN Reason: Constipation Stop: 04/03/19 00:36 Spironolactone (Aldactone) 50 mg PO BID17 [facility] Stop: 04/03/19 08:59 Last Admin: 03/04/19 09:37 Dose: 50 mg Documented by: Tamsulosin HCl (Flomax) 0.4 mg PO DAILY [facility] Stop: 04/03/19 08:59 Last Admin: 03/04/19 09:48 Dose: 0.4 mg Documented by: Tiotropium [place] (Spiriva) 1 puffs INH DAILY [facility] Stop: 04/03/19 08:59 Last Admin: 03/04/19 09:51 Dose: 1 puffs Documented by: Tramadol HCl (Ultram) 50 mg PO Q4H PRN PRN Reason: Pain Stop: 04/03/19 00:36 Last Admin: 03/04/19 12:16 Dose: 50 mg Documented by: (1) Chest pain Chest pain type: unspecified Qualified Code(s): R07.9 - Chest pain, unspecified (2) Pulmonary embolism Pulmonary embolism type: unspecified Chronicity: chronic Acute cor pulmonale presence: without acute cor pulmonale Qualified Code(s): I27.82 - Chronic pulmonary embolism
--- NOTE | 2019-03-04 21:28 | CT Scan Report ---
CT lumbar spine wo con CLINICAL HISTORY: 48 years-old Male presenting with severe back pain. TECHNIQUE: Multidetector CT of the lumbar spine was performed without the use of intravenous contrast . IV contrast: None. One or more dose lowering techniques were used consistent with the principles of ALARA (as low as reasonably achievable), including automatic exposure control, mA or kV adjustment t o individual patient size, and/or use of iterative reconstruction. COMPARISON: 12/09/2018. CT DOSE (mGy.cm): The estimated cumulative dose is 1048.25 mGy.cm. FINDINGS: [employer] topogram: Unremarkable. Normal lumbar lordosis. Mild anterior vertebral body height loss of L1. This is unchanged from prior exam. Remaining vertebral bodies demonstrate normal height and alignment. Vacuum disc phenomenon and mild disc height loss at L4-5 and L5-S1. Disc bulges may be present at these levels. Mild facet arthr opathy in the lower lumbar spine. Osseous neural foraminal narrowing suggested at L4-5 and L5-S1 grea ter on the left. Visualized portion of the sacrum grossly intact. Paraspinal soft tissues within norm al limits apart from subcutaneous edema. IMPRESSION: 1. No acute osseous injury of the lumbar spine allowing for image quality, which is degraded by body habitus. This limits diagnostic sensitivity of the exam to a mild to moderate degree. 2. Degenerative changes of the lower lumbar spine. Electronically signed by: Joey Merida M.D. 03/04/2019 9:27 PM
[2019-03-05] MEDS: TRAMADOL HCL 50 MG TABLET PO PRN ×5 (03:13→20:12)
[2019-03-05] MEDS: OXYCODONE HCL IR 5 MG TAB (IMMEDIATE RELEASE) PO PRN ×4 (03:14→16:03)
[2019-03-05] MEDS: ALBUT/IPRATROP 3MG/0.5MG NEB 3 ML VIAL NEB SCH ×3 (07:05→19:11)
[2019-03-05 07:29] LABS: Basophils # (auto) 0.03 K/uL (0-0.2); Basophils % (auto) 0.2 %; Eosinophils # (auto) 0.02 K/uL (0-0.5); Eosinophils % (auto) 0.1 %; Hematocrit (blood only) 33.1 % (42-52); Hemoglobin 10.4 g/dL (14.0-18.0); Immature Granulocytes # (auto) 0.08 K/uL (0.00-0.02); Immature Granulocytes % (auto) 0.4 %; Lymphocytes # (auto) 2.91 K/uL (1.2-3.4); Lymphocytes % (auto) 16.1 %; Mean Corpuscular Hgb Conc 31.4 g/dL (32-36); Mean Corpuscular Volume 78.6 fL (80-100); Mean Platelet Volume 9.6 fL (7.4-10.4); Monocytes % (auto) 6.6 %; Neutrophils # (auto) 13.84 K/uL (1.4-6.5); Neutrophils % (auto) 76.6 %; Platelet Count 347 K/uL (130-400); RDW Coefficient of Variation 16.8 % (11.5-14.5); RDW Standard Deviation 48.4 fL (36.4-46.3); Red Blood Count 4.21 M/uL (4.7-6.1); White Blood Count 18.08 K/uL (4.8-10.8)
[2019-03-05 07:49] LABS: Prothrombin Time 56.8 Seconds (9.0-12.0)
[2019-03-05 07:55] LABS: INR 6.3 (0.9-1.1)
[2019-03-05 08:04] LABS: BUN Creatinine Ratio 14.4 (10-20); Calcium 8.8 mg/dl (8.5-10.1); Creatinine Clr Calc Pharmacy 168.9 ml/min; Est GFR (African American) 105.2; Est GFR (Non-African American) 90.8; Magnesium 2.1 mg/dl (1.8-2.4); Phosphorus 3.1 mg/dl (2.5-4.9); Potassium 3.8 mmol/L (3.5-5.1)
[2019-03-05] MEDS: POTASSIUM CHLORIDE 10 MEQ TABCR PO SCH ×2 (08:11→21:10)
[2019-03-05] MEDS: ASPIRIN 81 MG ECTAB PO SCH (08:11)
[2019-03-05] MEDS: SPIRONOLACTONE 25 MG TAB PO SCH ×2 (08:12→17:31)
[2019-03-05] MEDS: ISOSORBIDE DINITRATE 10 MG TAB PO SCH ×3 (08:12→21:12)
[2019-03-05] MEDS: NICOTINE 21 MG/24 HR TDSY TD SCH (08:12)
[2019-03-05] MEDS: MAGNESIUM OXIDE 400 MG TAB PO SCH (08:12)
[2019-03-05] MEDS: PANTOprazole 40 MG TAB PO SCH (08:12)
[2019-03-05] MEDS: TIOTROPIUM BROMIDE 5 PUFF/90 MCG INH INH SCH (08:12)
[2019-03-05] MEDS: TAMSULOSIN HCL 0.4 MG CAP PO SCH (08:12)
[2019-03-05] MEDS: predniSONE 20 MG TAB PO SCH (08:12)
[2019-03-05] MEDS: GABAPENTIN 300 MG CAP PO SCH ×3 (08:14→21:11)
[2019-03-05] MEDS: FINASTERIDE 5 MG TAB PO SCH (08:14)
[2019-03-05] MEDS: DOCUSATE SODIUM 100 MG CAP PO SCH ×2 (08:14→21:09)
[2019-03-05] MEDS: CYCLOBENZAPRINE HCL 10 MG TAB PO SCH ×2 (08:14→21:09)
[2019-03-05] MEDS: FLUTICASONE PROPIONATE NA SPR 16 GM BTL SCH (08:14)
[2019-03-05] MEDS: METOPROLOL SUCC 25MG EXT REL TAB PO SCH ×2 (08:14→21:12)
[2019-03-05] MEDS: DULOXETINE HCL 60 MG CAP PO SCH (08:14)
[2019-03-05] MEDS: FUROSEMIDE 40 MG in SYRINGE 0 ML IV SCH ×3 (08:15→21:11)
[2019-03-05] MEDS: MoRPHine SULFATE CR 15 MG TABCR PO SCH ×2 (08:27→21:14)
[2019-03-05] MEDS ORDERED: ERTAPENEM SODIUM 1,000 MG in SODIUM CHLORIDE 0.9% 50 ML IV SCH (09:00)
[2019-03-05] MEDS ORDERED: HYDROmorphone INJ 1 MG/ML SYRINGE IV ONE (09:12)
--- NOTE | 2019-03-05 10:19 | Cardiology Progress Note ---
Date of Service March 05, 2019 Assessment & Plan (1) Acute on chronic diastolic congestive heart failure, NYHA class 3: Maintain negative fluid balance. Continue Lasix 40 mg IV 3 times daily. Repeat BMP in a.m. Review of repeat resting 2D transthoracic echocardiogram demonstrates preserved LV systolic function. No significant valvular pathology. (2) Chest pain: Secondary to acute decompensated diastolic heart failure. (3) Supratherapeutic INR: Patient received 5 mg vitamin K. INR trending downward. No signs/symptoms of GI/ blood loss. Repeat INR in a.m. (4) UTI (urinary tract infection) due to urinary indwelling Lloyd catheter: Recently treated for resistant urinary tract infection and with Invanz. Repeat urine culture with Streptococcus. Sensitivities pending at this time. Antibiotics per internal medicine. (5) Pulmonary embolism: (6) Hypoventilation associated with obesity: (7) Tobacco abuse disorder: (8) Morbid obesity: Subjective Patient seen and examined at the bedside. Fluid balance -2700 cc overnight. Renal function remains stable. Reports back pain. Denies chest pain or tightness. No palpitations, lightheadedness, dizziness. No dysrhythmias on telemetry. Offers no new complaints this time. Review of Systems Review of Systems: All systems reviewed & are unremarkable except as noted in HPI & below Physical Exam Physical Exam: General: NAD, morbid obesity, awake alert and oriented x3. HEENT: Normocephalic. Atraumatic. Conjunctiva pink, no scleral icterus. Neck: No carotid bruits, the carotid upstrokes are brisk. Unable to accurately assess JVD and/or HJR due to body habitus. Heart: Regular, borderline tachycardic, heart sounds are distant, normal S-1 and S-2 no S-3 or S-4 gallop. No murmurs or rub appreciated. PMI is not displaced. No RV heave. Lungs: Diminished breath sounds bilaterally with mild end expiratory wheezing. Right basilar crackles. No rhonchi. abdomen: Normal bowel sounds. Soft. Nontender. No masses or organomegaly. No abdominal bruits. Extremities: 2+ bilateral pitting lower extremity edema up to to the mid quadriceps. Pulses: radial=2/4. Neuro: Cranial nerves grossly intact. No focal motor deficit. Results & Data Vital Signs (Past 12 Hours) Vital Signs Temp Pulse Resp BP Pulse Ox 03/05/19 07:05 90 16 95 03/05/19 06:50 36.6 C 86 18 156/69 H 95 03/05/19 03:39 36.7 C 92 H 16 167/68 H 95 03/05/19 00:18 36.7 C 93 H 18 131/74 94 (1) UTI (urinary tract infection) due to urinary indwelling Lloyd catheter Encounter type: initial encounter Indwelling urinary catheter type: indwelling urethral catheter Qualified Code(s): T83.511A - Infection and inflammatory reaction due to indwelling urethral catheter, initial encounter; N39.0 - Urinary tract infection, site not specified (2) Pulmonary embolism Acute cor pulmonale presence: without acute cor pulmonale Chronicity: chronic Pulmonary embolism type: unspecified Qualified Code(s): I27.82 - Chronic pulmonary embolism (3) Chest pain Chest pain type: unspecified Qualified Code(s): R07.9 - Chest pain, unspecified
[2019-03-05] MEDS: AMOXICILLIN 500 MG CAP PO SCH ×3 (12:05→21:08)
[2019-03-05] MEDS: ONDANSETRON INJ 2 MG/ML 2 ML VIAL IV PRN (12:11)
--- NOTE | 2019-03-05 12:47 | Hospitalist Progress Note ---
Date of Service March 05, 2019 Assessment & Plan (1) Acute on chronic diastolic congestive heart failure, NYHA class 3: Admitted with symptomatic fluid overload About 40 pounds weight gain last 1 month he Failed outpatient therapy with increasing dose of diuretics Chest x-ray no acute CHF and proBNP is normal Appreciate cardiology input and recommendation Has been on Lasix 40 mg IV 3 times daily and Aldactone 50 mg twice daily Fluid restriction and monitor intake output and electrolyte Echocardiogram on 03/04; the study was technically limited, compared to prior study no significant change. EF 55 to 60%, grade 1 diastolic dysfunction, right ventricular systolic function is with apical right ventricle hypokinesis. Clinically better and lost about 4 kg since admission (2) Chest pain: Chest pain seems to be noncardiac Serial troponin were not elevated and EKG did not show any acute change Doubt any ACS Await echo-as above and has right apical hypokinesis (3) Indwelling Lloyd catheter present: Management as per urology Urine culture is growing Streptococcus species Started on amoxicillin pending ID evaluation and recommendation (4) Infection due to ESBL-producing Escherichia coli: History of ESBL UTI but did not finish the course of Augmentin recently UA suggestive of infection without any symptoms Await culture before starting antibiotic As above (5) Opioid dependence: Has chronic back pain under care of pain therapist No prescription of narcotics will be given on discharge Will not change any doses and/or frequency of narcotics while in the hospital He may get extra doses of intravenous pain medications while in the hospital to increase his mobility Has had acute pain last night-CT scan of the lumbar spine was unremarkable May need intravenous pain medications, if given the corresponding dose of oral OxyIR will not be administered Discussed with the patient in detail (6) Pulmonary embolism: History of pulmonary embolism on oral Coumadin INR level supratherapeutic Received 5 mg of vitamin K this morning We will monitor INR in the hospital INR has been improving (7) Depression with anxiety: We will continue current medications (8) Chronic back pain: As above No prescriptions of narcotics will be given on discharge Increasing back pain this morning-received 1 dose of Dilaudid of 1 mg IV Dilaudid 1 mg IV twice daily can be given with with holding the corresponding doses of short-acting morphine sulfate Other medical conditions remained stable We will get PT and OT evaluation when appropriate Possible discharge in 2 to 3 days Subjective 03/04 Patient was seen and examined in telemetry unit He is a 48-year-old male obese with significant complicated past medical history as mentioned in H&P was admitted with symptoms of fluid overload He gained about 40 pounds over the last 1 month Failed outpatient treatment with increasing dose of torsemide and Aldactone Admitted with chest pain and shortness of breath Complains to have severe back pain this morning with radiation of pain along the lower extremities 03/05 Patient was seen and examined in telemetry unit Has had acute back pain last evening and CT scan of the lumbar spine did not show any significant findings Denies any chest pain and/or shortness of breath at rest Lost about 4 kg since admission Review of Systems Review of Systems: All systems reviewed and are unremarkable except as noted below Constitutional: + body aches, + weakness and + weight gain Musculoskeletal: Localized tenderness lumbar spine. Ongoing chronic back pain Physical Exam Physical Exam: Lying in bed comfortably Constitutional: + ill appearing and + morbidly obese; no acute distress (At rest) Eyes: PERRL, conjunctivae normal, anicteric sclerae ENMT: external ear and nose normal, oropharynx normal Neck: trachea midline, no thyromegaly Respiratory: normal respiratory effort Auscultation: + diminished lung sounds (Both bases with minimal crackles) and + crackles (Minimal at the bases) Cardiovascular: Rate/Rhythm: regular rate Heart Sounds: no murmur Gastrointestinal (Abdomen): Inspection/Auscultation: + abdomen distended and normal bowel sounds Percussion/Palpation: abdomen soft; abdomen nontender Lymphatic: no cervical or axillary lymphadenopathy Results & Data Vital Signs (Past 12 Hours) Vital Signs Temp Pulse Resp BP Pulse Ox 03/05/19 11:25 36.7 C 94 H 20 130/73 96 03/05/19 07:05 90 16 95 03/05/19 06:50 36.6 C 86 18 156/69 H 95 03/05/19 03:39 36.7 C 92 H 16 167/68 H 95 Laboratory Results Short CBC 03/05/19 Range/Units 07:15 WBC 18.08 H (4.8-10.8) K/uL Hgb 10.4 L (14.0-18.0) g/dL Hct 33.1 L (42-52) % Plt Count 347 (130-400) K/uL BMP 03/05/19 07:15 Sodium 144 Potassium 3.8 Chloride 106 Carbon Dioxide 29 BUN 14 D Creatinine 0.98 Glucose 151 H Calcium 8.8 Medications Administered Current Inpatient Medications Acetaminophen (Tylenol) 650 mg PO Q4H PRN PRN Reason: Pain or Fever Stop: 04/03/19 00:36 Albuterol (Ventolin Hfa) 2 puffs INH Q4H PRN PRN Reason: Wheezing Albuterol (Duoneb) 3 ml NEB TIDR [facility] Stop: 04/03/19 08:59 Last Admin: 03/05/19 07:05 Dose: 3 ml Documented by: Albuterol (Duoneb) 3 ml INH Q4H PRN PRN Reason: Shortness Of Breath Or Wheezing Stop: 04/03/19 00:36 Amoxicillin (Amoxil) 500 mg PO TID [facility] Stop: 03/15/19 10:59 Last Admin: 03/05/19 12:05 Dose: 500 mg Documented by: Aspirin (Ecotrin Ectab) 81 mg PO [facility] Stop: 04/03/19 08:59 Last Admin: 03/05/19 08:11 Dose: 81 mg Documented by: Cyclobenzaprine HCl (Flexeril) 10 mg PO BID [facility] Stop: 04/03/19 08:59 Last Admin: 03/05/19 08:14 Dose: 10 mg Documented by: Docusate Sodium (Colace) 100 mg PO BID [facility] Stop: 04/03/19 08:59 Last Admin: 03/05/19 08:14 Dose: 100 mg Documented by: Duloxetine HCl (Cymbalta) 60 mg PO [facility] Stop: 04/03/19 08:59 Last Admin: 03/05/19 08:14 Dose: 60 mg Documented by: Finasteride (Proscar) 5 mg PO [facility] Stop: 04/03/19 08:59 Last Admin: 03/05/19 08:14 Dose: 5 mg Documented by: Fluticasone Propionate (Flonase) 2 sprays NA [facility] Stop: 04/03/19 08:59 Last Admin: 03/05/19 08:14 Dose: 2 sprays Documented by: Gabapentin (Neurontin) 300 mg PO TID [facility] Stop: 04/03/19 08:59 Last Admin: 03/05/19 08:14 Dose: 300 mg Documented by: Hydroxyzine HCl (Vistaril) 25 mg PO QID PRN PRN Reason: Anxiety Stop: 04/03/19 00:36 Furosemide 40 mg/ Syringe 4 mls @ 4 mls/min IV TID [facility] Stop: 04/03/19 00:36 Last Admin: 03/05/19 08:15 Dose: 4 mls/min Documented by: Isosorbide Dinitrate (Isordil) 10 mg PO BID@0700,1200 [facility] Stop: 04/03/19 06:59 Last Admin: 03/05/19 08:12 Dose: 10 mg Documented by: Lorazepam (Ativan) 1 mg PO TID PRN PRN Reason: Anxiety Stop: 04/03/19 00:36 Last Admin: 03/04/19 23:48 Dose: 1 mg Documented by: Magnesium Oxide (Mag-Ox) 400 mg PO QAM [facility] Stop: 04/03/19 08:59 Last Admin: 03/05/19 08:12 Dose: 400 mg Documented by: Metoprolol Succinate (Toprol Xl) 25 mg PO BID [facility] Stop: 04/03/19 08:59 Last Admin: 03/05/19 08:14 Dose: 25 mg Documented by: Miscellaneous (Remove Nicoderm Patch) 1 ea N/A HS [facility] Stop: 04/03/19 00:36 Last Admin: 03/04/19 20:07 Dose: 1 ea Documented by: Morphine Sulfate (Ms Contin) 15 mg PO Q12 [facility] Stop: 03/18/19 00:36 Last Admin: 03/05/19 08:27 Dose: 15 mg Documented by: Nicotine (Nicoderm Cq) 21 mg TD DAILY [facility] Stop: 04/03/19 00:36 Last Admin: 03/05/19 08:12 Dose: 21 mg Documented by: Nitroglycerin (Nitrostat) 0.4 mg SL UD PRN PRN Reason: Chest Pain Stop: 04/03/19 00:36 Nystatin (Mycostatin) 1 appln EXT BID PRN PRN Reason: Skin Irritation Stop: 04/03/19 00:36 Ondansetron HCl (Zofran Odt) 4 mg PO Q4H PRN PRN Reason: Nausea And Vomiting Stop: 04/03/19 00:36 Ondansetron HCl (Zofran) 4 mg IV Q6H PRN PRN Reason: Nausea Stop: 04/03/19 00:36 Last Admin: 03/05/19 12:11 Dose: 4 mg Documented by: Oxycodone HCl (Roxicodone Immediate Rel) 15 mg PO Q4H PRN PRN Reason: Pain Stop: 03/18/19 00:36 Last Admin: 03/05/19 12:04 Dose: 15 mg Documented by: Pantoprazole Sodium (Protonix) 40 mg PO QAM [facility] Stop: 04/03/19 08:59 Last Admin: 03/05/19 08:12 Dose: 40 mg Documented by: Polyethylene Glycol (Miralax Powder Packet) 17 gm PO Q24H PRN PRN Reason: Constipation Stop: 04/03/19 00:36 Potassium Chloride (Klor-Con M10) 10 meq PO BID [facility] Stop: 04/03/19 08:59 Last Admin: 03/05/19 08:11 Dose: 10 meq Documented by: Prednisone (Prednisone) 40 mg PO DAILY [facility] Stop: 04/03/19 08:59 Last Admin: 03/05/19 08:12 Dose: 40 mg Documented by: Sodium Biphosphate/Sodium Phosphate (Fleet Enema) 133 ml [place] UD PRN PRN Reason: Constipation Stop: 04/03/19 00:36 Spironolactone (Aldactone) 50 mg PO BID17 [facility] Stop: 04/03/19 08:59 Last Admin: 03/05/19 08:12 Dose: 50 mg Documented by: Tamsulosin HCl (Flomax) 0.4 mg PO DAILY [facility] Stop: 04/03/19 08:59 Last Admin: 03/05/19 08:12 Dose: 0.4 mg Documented by: Tiotropium [place] (Spiriva) 1 puffs INH DAILY [facility] Stop: 04/03/19 08:59 Last Admin: 03/05/19 08:12 Dose: 1 puffs Documented by: Tramadol HCl (Ultram) 50 mg PO Q4H PRN PRN Reason: Pain Stop: 04/03/19 00:36 Last Admin: 03/05/19 12:04 Dose: 50 mg Documented by: (1) Chest pain Chest pain type: unspecified Qualified Code(s): R07.9 - Chest pain, unspecified (2) Pulmonary embolism Pulmonary embolism type: unspecified Chronicity: chronic Acute cor pulmonale presence: without acute cor pulmonale Qualified Code(s): I27.82 - Chronic pulmonary embolism
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
[2019-03-05] MEDS: HYDROmorphone INJ 1 MG/ML SYRINGE IV PRN (20:12)
[2019-03-05] MEDS: LORazepam 1 MG TAB PO PRN (21:21)
[2019-03-06] MEDS: OXYCODONE HCL IR 5 MG TAB (IMMEDIATE RELEASE) PO PRN ×6 (00:02→22:17)
[2019-03-06] MEDS: TRAMADOL HCL 50 MG TABLET PO PRN ×6 (00:05→20:04)
[2019-03-06] MEDS: ALBUT/IPRATROP 3MG/0.5MG NEB 3 ML VIAL NEB SCH ×3 (07:14→18:50)
[2019-03-06 07:29] LABS: Basophils # (auto) 0.03 K/uL (0-0.2); Basophils % (auto) 0.2 %; Eosinophils # (auto) 0.04 K/uL (0-0.5); Eosinophils % (auto) 0.2 %; Hemoglobin 10.8 g/dL (14.0-18.0); Immature Granulocytes # (auto) 0.12 K/uL (0.00-0.02); Immature Granulocytes % (auto) 0.7 %; Lymphocytes # (auto) 3.27 K/uL (1.2-3.4); Lymphocytes % (auto) 18.6 %; Mean Corpuscular Hgb Conc 31.8 g/dL (32-36); Mean Corpuscular Volume 79.8 fL (80-100); Mean Platelet Volume 9.9 fL (7.4-10.4); Monocytes # (auto) 1.26 K/uL (0.11-0.59); Monocytes % (auto) 7.2 %; Neutrophils % (auto) 73.1 %; Platelet Count 349 K/uL (130-400); RDW Coefficient of Variation 17.1 % (11.5-14.5); RDW Standard Deviation 49.2 fL (36.4-46.3); Red Blood Count 4.26 M/uL (4.7-6.1); White Blood Count 17.62 K/uL (4.8-10.8)
[2019-03-06 07:40] LABS: INR 3.1 (0.9-1.1); Prothrombin Time 29.4 Seconds (9.0-12.0)
[2019-03-06 07:54] LABS: BUN Creatinine Ratio 16.9 (10-20); Calcium 8.6 mg/dl (8.5-10.1); Creatinine Clr Calc Pharmacy 163.9 ml/min; Est GFR (African American) 101.5; Est GFR (Non-African American) 87.5; Magnesium 2.2 mg/dl (1.8-2.4); Potassium 3.6 mmol/L (3.5-5.1)
[2019-03-06] MEDS: MoRPHine SULFATE CR 15 MG TABCR PO SCH ×2 (08:27→20:59)
[2019-03-06] MEDS: MAGNESIUM OXIDE 400 MG TAB PO SCH (09:09)
[2019-03-06] MEDS: FUROSEMIDE 40 MG in SYRINGE 0 ML IV SCH ×2 (09:09→20:57)
[2019-03-06] MEDS: predniSONE 20 MG TAB PO SCH (09:10)
[2019-03-06] MEDS: NICOTINE 21 MG/24 HR TDSY TD SCH (09:10)
[2019-03-06] MEDS: ASPIRIN 81 MG ECTAB PO SCH (09:10)
[2019-03-06] MEDS: POTASSIUM CHLORIDE 10 MEQ TABCR PO SCH ×2 (09:10→20:58)
[2019-03-06] MEDS: PANTOprazole 40 MG TAB PO SCH (09:11)
[2019-03-06] MEDS: DULOXETINE HCL 60 MG CAP PO SCH (09:11)
[2019-03-06] MEDS: CYCLOBENZAPRINE HCL 10 MG TAB PO SCH ×2 (09:11→20:58)
[2019-03-06] MEDS: DOCUSATE SODIUM 100 MG CAP PO SCH ×2 (09:11→20:58)
[2019-03-06] MEDS: METOPROLOL SUCC 25MG EXT REL TAB PO SCH ×2 (09:11→20:58)
[2019-03-06] MEDS: SPIRONOLACTONE 25 MG TAB PO SCH ×2 (09:11→16:34)
[2019-03-06] MEDS: AMOXICILLIN 500 MG CAP PO SCH ×3 (09:11→22:29)
[2019-03-06] MEDS: GABAPENTIN 300 MG CAP PO SCH ×3 (09:11→20:58)
[2019-03-06] MEDS: FLUTICASONE PROPIONATE NA SPR 16 GM BTL SCH (09:12)
[2019-03-06] MEDS: TIOTROPIUM BROMIDE 5 PUFF/90 MCG INH INH SCH (09:12)
[2019-03-06] MEDS: FINASTERIDE 5 MG TAB PO SCH (09:12)
[2019-03-06] MEDS: TAMSULOSIN HCL 0.4 MG CAP PO SCH (09:13)
[2019-03-06] MEDS: HYDROmorphone INJ 1 MG/ML SYRINGE IV PRN ×2 (09:48→20:04)
[2019-03-06] MEDS: POLYETHYLENE (MIRALAX) 17 GM PACK PO PRN (09:48)
[2019-03-06] MEDS: ONDANSETRON INJ 2 MG/ML 2 ML VIAL IV PRN (11:30)
--- NOTE | 2019-03-06 11:41 | Cardiology Progress Note ---
Date of Service March 06, 2019 Assessment & Plan (1) Acute on chronic diastolic congestive heart failure, NYHA class 3: Fluid balance negative 4.7 L overnight. Reduce Lasix to 40 mg IV twice daily. Repeat BMP in a.m. follow daily weight, and fluid balance. Tentative plan for transition to oral diuretic therapy in 48 to 72 hours pending review of a.m. labs. (2) Chest pain: Resolved. Secondary to acute decompensated diastolic heart failure. (3) Supratherapeutic INR: Patient received 5 mg vitamin K. INR 3.1 today. No signs/symptoms of GI/ blood loss. Repeat INR in a.m. Restart Coumadin tomorrow, 03/07/2019. (4) UTI (urinary tract infection) due to urinary indwelling Lloyd catheter: Recently treated for resistant urinary tract infection and with Invanz. Repeat urine culture with Enterococcus faecalis. Antibiotics per internal medicine. (5) Pulmonary embolism: (6) Hypoventilation associated with obesity: (7) Tobacco abuse disorder: (8) Morbid obesity: Subjective Patient seen and examined the bedside. Denies chest pain or palpitations. Dyspnea and wheezing mildly improved. Edema improving as well. No dysrhythmias on telemetry. Fluid balance negative 4.7 L overnight. Renal function remains stable. INR has trended down to 3.1. Review of Systems Review of Systems: All systems reviewed & are unremarkable except as noted in HPI & below Physical Exam Physical Exam: General: NAD, morbid obesity, awake alert and oriented x3. HEENT: Normocephalic. Atraumatic. Conjunctiva pink, no scleral icterus. Neck: No carotid bruits, the carotid upstrokes are brisk. Unable to accurately assess JVD and/or HJR due to body habitus. Heart: Regular, borderline tachycardic, heart sounds are distant, normal S-1 and S-2 no S-3 or S-4 gallop. No murmurs or rub appreciated. PMI is not displaced. No RV heave. Lungs: Diminished breath sounds bilaterally with mild end expiratory wheezing. No rales or rhonchi. abdomen: Normal bowel sounds. Soft. Nontender. No masses or organomegaly. No abdominal bruits. Extremities: 2+ bilateral pitting lower extremity edema up to to the knees (improved). Pulses: radial=2/4. Neuro: Cranial nerves grossly intact. No focal motor deficit. Results & Data Vital Signs (Past 12 Hours) Vital Signs Temp Pulse Pulse Resp BP Pulse Ox 03/06/19 11:33 36.7 C 82 19 125/80 96 03/06/19 08:00 86 03/06/19 07:14 77 18 95 03/06/19 04:05 37.0 C 84 16 116/69 94 03/06/19 00:00 36.6 C 90 18 143/67 H 96 Laboratory Results Laboratory Results - last 24 hr 03/06/19 03/06/19 03/06/19 06:57 06:57 06:57 WBC 17.62 H RBC 4.26 L Hgb 10.8 L Hct 34.0 L MCV 79.8 L MCH 25.4 MCHC 31.8 L RDW Std Deviation 49.2 H RDW Coeff of Megan 17.1 H Plt Count 349 MPV 9.9 Immature Gran % (Auto) 0.7 Neut % (Auto) 73.1 Lymph % (Auto) 18.6 Bradley % (Auto) 7.2 Eos % (Auto) 0.2 Baso % (Auto) 0.2 Immature Gran # (Auto) 0.12 H Neut # (Auto) 12.90 H Lymph # (Auto) 3.27 Bradley # (Auto) 1.26 H Eos # (Auto) 0.04 Baso # (Auto) 0.03 PT 29.4 H INR 3.1 H Sodium 140 Potassium 3.6 Chloride 102 Carbon Dioxide 34 H Anion Gap 4.0 BUN 17 Creatinine 1.01 Est Cr Clr Drug Dosing 163.9 Est GFR ( Amer) 101.5 Est GFR (Non-Af Amer) 87.5 BUN/Creatinine Ratio 16.9 Glucose 123 H Calcium 8.6 Magnesium 2.2 (1) UTI (urinary tract infection) due to urinary indwelling Lloyd catheter Encounter type: initial encounter Indwelling urinary catheter type: indwelling urethral catheter Qualified Code(s): T83.511A - Infection and inflammatory reaction due to indwelling urethral catheter, initial encounter; N39.0 - Urinary tract infection, site not specified (2) Pulmonary embolism Acute cor pulmonale presence: without acute cor pulmonale Chronicity: chronic Pulmonary embolism type: unspecified Qualified Code(s): I27.82 - Chronic pulmonary embolism (3) Chest pain Chest pain type: unspecified Qualified Code(s): R07.9 - Chest pain, unspecified
--- NOTE | 2019-03-06 12:18 | Hospitalist Progress Note ---
Date of Service March 06, 2019 Assessment & Plan (1) Acute on chronic diastolic congestive heart failure, NYHA class 3: Admitted with symptomatic fluid overload About 40 pounds weight gain last 1 month he Failed outpatient therapy with increasing dose of diuretics Chest x-ray no acute CHF and proBNP is normal Appreciate cardiology input and recommendation Has been on Lasix 40 mg IV 3 times daily and Aldactone 50 mg twice daily Fluid restriction and monitor intake output and electrolyte Echocardiogram on 03/04; the study was technically limited, compared to prior study no significant change. EF 55 to 60%, grade 1 diastolic dysfunction, right ventricular systolic function is with apical right ventricle hypokinesis. Clinically better and lost about 4 kg since admission Has been diuresing well, continue current dose of diuretics as per cardiology Monitor electrolytes and kidney function (2) Chest pain: Chest pain seems to be noncardiac Serial troponin were not elevated and EKG did not show any acute change Doubt any ACS Await echo-as above and has right apical hypokinesis No more chest pain (3) Indwelling Lloyd catheter present: Management as per urology Urine culture is growing Streptococcus species Started on amoxicillin pending ID evaluation and recommendation Appreciate ID input and recommendation Will ask for urology consult (4) Infection due to ESBL-producing Escherichia coli: History of ESBL UTI but did not finish the course of Augmentin recently UA suggestive of infection without any symptoms Await culture before starting antibiotic As above (5) Opioid dependence: Has chronic back pain under care of pain therapist No prescription of narcotics will be given on discharge Will not change any doses and/or frequency of narcotics while in the hospital He may get extra doses of intravenous pain medications while in the hospital to increase his mobility Has had acute pain last night-CT scan of the lumbar spine was unremarkable May need intravenous pain medications, if given the corresponding dose of oral OxyIR will not be administered Discussed with the patient in detail His narcotic prescriptions, number of narcotics given by shown him from from PDMP record (no copies were given to him) He will not be prescribed any narcotics on discharge (6) Pulmonary embolism: History of pulmonary embolism on oral Coumadin INR level supratherapeutic Received 5 mg of vitamin K this morning We will monitor INR in the hospital INR has been improving INR is down to 3.1 today (7) Depression with anxiety: We will continue current medications (8) Chronic back pain: As above No prescriptions of narcotics will be given on discharge Increasing back pain this morning-received 1 dose of Dilaudid of 1 mg IV Dilaudid 1 mg IV twice daily can be given with with holding the corresponding doses of short-acting morphine sulfate Other medical conditions remained stable We will get PT and OT evaluation when appropriate Possible discharge in 2 to 3 days Subjective 03/04 Patient was seen and examined in telemetry unit He is a 48-year-old male obese with significant complicated past medical history as mentioned in H&P was admitted with symptoms of fluid overload He gained about 40 pounds over the last 1 month Failed outpatient treatment with increasing dose of torsemide and Aldactone Admitted with chest pain and shortness of breath Complains to have severe back pain this morning with radiation of pain along the lower extremities 03/05 Patient was seen and examined in telemetry unit Has had acute back pain last evening and CT scan of the lumbar spine did not show any significant findings Denies any chest pain and/or shortness of breath at rest Lost about 4 kg since admission 03/06 Patient was seen and examined in telemetry unit He is lying in bed comfortably Morbidly obese without any shortness of breath In for more pain medications Review of Systems Review of Systems: All systems reviewed and are unremarkable except as noted below Constitutional: + body aches, + weakness and + weight gain Musculoskeletal: Localized tenderness lumbar spine. Ongoing chronic back pain Physical Exam Physical Exam: Is lying in bed without any significant symptoms Constitutional: + morbidly obese; no acute distress Eyes: PERRL, conjunctivae normal, anicteric sclerae ENMT: external ear and nose normal, oropharynx normal Neck: trachea midline, no thyromegaly Respiratory: normal respiratory effort Auscultation: + diminished lung sounds (Both bases with minimal crackles) and + crackles (Minimal at the bases) Cardiovascular: Rate/Rhythm: regular rate Heart Sounds: no murmur Gastrointestinal (Abdomen): Inspection/Auscultation: + abdomen distended and normal bowel sounds Percussion/Palpation: abdomen soft; abdomen nontender Musculoskeletal: No acute arthritis in any joints. Does have chronic back pain Lymphatic: no cervical or axillary lymphadenopathy Results & Data Vital Signs (Past 12 Hours) Vital Signs Temp Pulse Pulse Resp BP Pulse Ox 03/06/19 11:33 36.7 C 82 19 125/80 96 03/06/19 08:00 86 03/06/19 07:14 77 18 95 03/06/19 04:05 37.0 C 84 16 116/69 94 Laboratory Results Short CBC 03/06/19 Range/Units 06:57 WBC 17.62 H (4.8-10.8) K/uL Hgb 10.8 L (14.0-18.0) g/dL Hct 34.0 L (42-52) % Plt Count 349 (130-400) K/uL BMP 03/06/19 06:57 Sodium 140 Potassium 3.6 Chloride 102 Carbon Dioxide 34 H BUN 17 Creatinine 1.01 Glucose 123 H Calcium 8.6 Medications Administered Current Inpatient Medications Acetaminophen (Tylenol) 650 mg PO Q4H PRN PRN Reason: Pain or Fever Stop: 04/03/19 00:36 Albuterol (Ventolin Hfa) 2 puffs INH Q4H PRN PRN Reason: Wheezing Albuterol (Duoneb) 3 ml NEB TIDR [facility] Stop: 04/03/19 08:59 Last Admin: 03/06/19 07:14 Dose: 3 ml Documented by: Albuterol (Duoneb) 3 ml INH Q4H PRN PRN Reason: Shortness Of Breath Or Wheezing Stop: 04/03/19 00:36 Amoxicillin (Amoxil) 500 mg PO TID [facility] Stop: 03/15/19 10:59 Last Admin: 03/06/19 09:11 Dose: 500 mg Documented by: Aspirin (Ecotrin Ectab) 81 mg PO QAM [facility] Stop: 04/03/19 08:59 Last Admin: 03/06/19 09:10 Dose: 81 mg Documented by: Cyclobenzaprine HCl (Flexeril) 10 mg PO BID [facility] Stop: 04/03/19 08:59 Last Admin: 03/06/19 09:11 Dose: 10 mg Documented by: Docusate Sodium (Colace) 100 mg PO BID [facility] Stop: 04/03/19 08:59 Last Admin: 03/06/19 09:11 Dose: 100 mg Documented by: Duloxetine HCl (Cymbalta) 60 mg PO QAM [facility] Stop: 04/03/19 08:59 Last Admin: 03/06/19 09:11 Dose: 60 mg Documented by: Finasteride (Proscar) 5 mg PO QAM [facility] Stop: 04/03/19 08:59 Last Admin: 03/06/19 09:12 Dose: 5 mg Documented by: Fluticasone Propionate (Flonase) 2 sprays NA QAM [facility] Stop: 04/03/19 08:59 Last Admin: 03/06/19 09:12 Dose: 2 sprays Documented by: Gabapentin (Neurontin) 300 mg PO TID [facility] Stop: 04/03/19 08:59 Last Admin: 03/06/19 09:11 Dose: 300 mg Documented by: Hydromorphone HCl (Dilaudid) 1 mg IV 1000,2100 PRN PRN Reason: Pain Stop: 03/19/19 12:48 Last Admin: 03/06/19 09:48 Dose: 1 mg Documented by: Hydroxyzine HCl (Vistaril) 25 mg PO QID PRN PRN Reason: Anxiety Stop: 04/03/19 00:36 Last Admin: 03/05/19 21:35 Dose: 25 mg Documented by: Furosemide 40 mg/ Syringe 4 mls @ 4 mls/min IV BID [facility] Stop: 04/05/19 20:59 Isosorbide Dinitrate (Isordil) 10 mg PO BID@0700,1200 [facility] Stop: 04/03/19 06:59 Last Admin: 03/05/19 21:12 Dose: 10 mg Documented by: Lorazepam (Ativan) 1 mg PO TID PRN PRN Reason: Anxiety Stop: 04/03/19 00:36 Last Admin: 03/05/19 21:21 Dose: 1 mg Documented by: Magnesium Oxide (Mag-Ox) 400 mg PO QAM [facility] Stop: 04/03/19 08:59 Last Admin: 03/06/19 09:09 Dose: 400 mg Documented by: Metoprolol Succinate (Toprol Xl) 25 mg PO BID [facility] Stop: 04/03/19 08:59 Last Admin: 03/06/19 09:11 Dose: 25 mg Documented by: Miscellaneous (Remove Nicoderm Patch) 1 ea N/A HS [facility] Stop: 04/03/19 00:36 Last Admin: 03/05/19 21:36 Dose: Not Given Documented by: Morphine Sulfate (Ms Contin) 15 mg PO Q12 [facility] Stop: 03/18/19 00:36 Last Admin: 03/06/19 08:27 Dose: 15 mg Documented by: Nicotine (Nicoderm Cq) 21 mg TD DAILY [facility] Stop: 04/03/19 00:36 Last Admin: 03/06/19 09:10 Dose: 21 mg Documented by: Nitroglycerin (Nitrostat) 0.4 mg SL UD PRN PRN Reason: Chest Pain Stop: 04/03/19 00:36 Nystatin (Mycostatin) 1 appln EXT BID PRN PRN Reason: Skin Irritation Stop: 04/03/19 00:36 Ondansetron HCl (Zofran Odt) 4 mg PO Q4H PRN PRN Reason: Nausea And Vomiting Stop: 04/03/19 00:36 Ondansetron HCl (Zofran) 4 mg IV Q6H PRN PRN Reason: Nausea Stop: 04/03/19 00:36 Last Admin: 03/06/19 11:30 Dose: 4 mg Documented by: Oxycodone HCl (Roxicodone Immediate Rel) 15 mg PO Q4H PRN PRN Reason: Pain Stop: 03/18/19 00:36 Last Admin: 03/06/19 08:27 Dose: 15 mg Documented by: Pantoprazole Sodium (Protonix) 40 mg PO QAM [facility] Stop: 04/03/19 08:59 Last Admin: 03/06/19 09:11 Dose: 40 mg Documented by: Polyethylene Glycol (Miralax Powder Packet) 17 gm PO Q24H PRN PRN Reason: Constipation Stop: 04/03/19 00:36 Last Admin: 03/06/19 09:48 Dose: 17 gm Documented by: Potassium Chloride (Klor-Con M10) 10 meq PO BID [facility] Stop: 04/03/19 08:59 Last Admin: 03/06/19 09:10 Dose: 10 meq Documented by: Prednisone (Prednisone) 40 mg PO DAILY [facility] Stop: 04/03/19 08:59 Last Admin: 03/06/19 09:10 Dose: 40 mg Documented by: Sodium Biphosphate/Sodium Phosphate (Fleet Enema) 133 ml CO UD PRN PRN Reason: Constipation Stop: 04/03/19 00:36 Spironolactone (Aldactone) 50 mg PO BID17 [facility] Stop: 04/03/19 08:59 Last Admin: 03/06/19 09:11 Dose: 50 mg Documented by: Tamsulosin HCl (Flomax) 0.4 mg PO DAILY [facility] Stop: 04/03/19 08:59 Last Admin: 03/06/19 09:13 Dose: 0.4 mg Documented by: Tiotropium [place] (Spiriva) 1 puffs INH DAILY [facility] Stop: 04/03/19 08:59 Last Admin: 03/06/19 09:12 Dose: 1 puffs Documented by: Tramadol HCl (Ultram) 50 mg PO Q4H PRN PRN Reason: Pain Stop: 04/03/19 00:36 Last Admin: 03/06/19 08:28 Dose: 50 mg Documented by: (1) Chest pain Chest pain type: unspecified Qualified Code(s): R07.9 - Chest pain, unspecified (2) Pulmonary embolism Pulmonary embolism type: unspecified Chronicity: chronic Acute cor pulmonale presence: without acute cor pulmonale Qualified Code(s): I27.82 - Chronic pulmonary embolism
[2019-03-06] MEDS: ISOSORBIDE DINITRATE 10 MG TAB PO SCH (12:31)
[2019-03-06] MEDS: LORazepam 1 MG TAB PO PRN ×2 (14:31→21:15)
--- NOTE | 2019-03-06 14:39 | Infectious Disease Progress Nt ---
Date of Service March 06, 2019 Assessment & Plan (1) UTI (urinary tract infection) due to urinary indwelling Lloyd catheter: Patient with possible urinary tract infection in the selling of indwelling Lloyd catheter with enterococcus and coagulase-negative staph. Recommend treating patient with Augmentin 875 mg twice daily for 10-day course. Would consider urology consult for change of Lloyd catheter. Will follow. (2) Enterococcal infection: Subjective Patient seen for follow-up for urinary tract infection. Fatigue, less short of breath today. Remains afebrile. Tolerating Augmentin without apparent difficulty. Review of Systems Review of Systems: All systems reviewed & are unremarkable except as noted in HPI & below Physical Exam Constitutional: WD/WN, vitals as above + obese Eyes: PERRL, conjunctivae normal, anicteric sclerae ENMT: external ear and nose normal, oropharynx normal Neck: trachea midline, no thyromegaly normal visual inspection Respiratory: normal respiratory effort and normal percussion; no respiratory distress Auscultation: + rales Cardiovascular: RRR, no murmur, no edema Heart Sounds: no gallop and no cardiac rub Gastrointestinal (Abdomen): normal bowel sounds, soft, nontender, no hepatosplenomegaly Percussion/Palpation: no abdominal mass Musculoskeletal: Head/Neck/Chest: normocephalic, head atraumatic and neck supple Extremities: strength 5/5 throughout; no cyanosis and no clubbing Skin: no rashes, warm and dry no lesions Neurologic: moves all extremities; no focal motor deficits Speech / Cognition: + abnormal speech Psychiatric: A+Ox3, euthymic affect Lymphatic: no cervical or axillary lymphadenopathy no inguinal lymphadenopathy Results & Data Vital Signs (Past 12 Hours) Vital Signs Temp Pulse Pulse Resp BP Pulse Ox 03/06/19 14:09 84 18 96 03/06/19 11:33 36.7 C 82 19 125/80 96 03/06/19 08:00 86 03/06/19 07:14 77 18 95 03/06/19 04:05 37.0 C 84 16 116/69 94 Laboratory Results Short CBC 03/06/19 Range/Units 06:57 WBC 17.62 H (4.8-10.8) K/uL Hgb 10.8 L (14.0-18.0) g/dL Hct 34.0 L (42-52) % Plt Count 349 (130-400) K/uL BMP 03/06/19 06:57 Sodium 140 Potassium 3.6 Chloride 102 Carbon Dioxide 34 H BUN 17 Creatinine 1.01 Glucose 123 H Calcium 8.6 Diagnostic Findings Microbiology 03/03/19 20:30 Urine,Indwelling Cath Urine Culture - Final Enterococcus faecalis Coag negative Staphylococcus (1) UTI (urinary tract infection) due to urinary indwelling Lloyd catheter Encounter type: initial encounter Indwelling urinary catheter type: indwelling urethral catheter Qualified Code(s): T83.511A - Infection and inflammatory reaction due to indwelling urethral catheter, initial encounter; N39.0 - Urinary tract infection, site not specified
[2019-03-07] MEDS: TRAMADOL HCL 50 MG TABLET PO PRN ×5 (01:13→23:25)
[2019-03-07] MEDS: OXYCODONE HCL IR 5 MG TAB (IMMEDIATE RELEASE) PO PRN ×5 (02:20→23:25)
[2019-03-07 06:03] LABS: INR 1.8 (0.9-1.1); Prothrombin Time 17.7 Seconds (9.0-12.0)
[2019-03-07] MEDS: ISOSORBIDE DINITRATE 10 MG TAB PO SCH ×2 (06:25→10:10)
[2019-03-07 06:29] LABS: BUN Creatinine Ratio 16.7 (10-20); Calcium 8.8 mg/dl (8.5-10.1); Creatinine Clr Calc Pharmacy 153.5 ml/min; Est GFR (African American) 94.6; Est GFR (Non-African American) 81.7; Magnesium 2.3 mg/dl (1.8-2.4); Potassium 3.7 mmol/L (3.5-5.1)
[2019-03-07] MEDS: ALBUT/IPRATROP 3MG/0.5MG NEB 3 ML VIAL NEB SCH ×3 (06:57→19:29)
[2019-03-07] MEDS: CYCLOBENZAPRINE HCL 10 MG TAB PO SCH ×2 (10:09→21:15)
[2019-03-07] MEDS: DOCUSATE SODIUM 100 MG CAP PO SCH ×2 (10:09→21:15)
[2019-03-07] MEDS: METOPROLOL SUCC 25MG EXT REL TAB PO SCH ×2 (10:10→21:14)
[2019-03-07] MEDS: TAMSULOSIN HCL 0.4 MG CAP PO SCH (10:10)
[2019-03-07] MEDS: GABAPENTIN 300 MG CAP PO SCH ×3 (10:10→21:15)
[2019-03-07] MEDS: PANTOprazole 40 MG TAB PO SCH (10:10)
[2019-03-07] MEDS: FINASTERIDE 5 MG TAB PO SCH (10:11)
[2019-03-07] MEDS: MAGNESIUM OXIDE 400 MG TAB PO SCH (10:11)
[2019-03-07] MEDS: POTASSIUM CHLORIDE 10 MEQ TABCR PO SCH ×2 (10:11→21:15)
[2019-03-07] MEDS: SPIRONOLACTONE 25 MG TAB PO SCH ×2 (10:11→16:58)
[2019-03-07] MEDS: FUROSEMIDE 40 MG in SYRINGE 0 ML IV SCH ×2 (10:12→21:15)
[2019-03-07] MEDS: FLUTICASONE PROPIONATE NA SPR 16 GM BTL SCH (10:12)
[2019-03-07] MEDS: predniSONE 20 MG TAB PO SCH (10:12)
[2019-03-07] MEDS: ASPIRIN 81 MG ECTAB PO SCH (10:12)
[2019-03-07] MEDS: DULOXETINE HCL 60 MG CAP PO SCH (10:12)
[2019-03-07] MEDS: TIOTROPIUM BROMIDE 5 PUFF/90 MCG INH INH SCH (10:13)
[2019-03-07] MEDS: NICOTINE 21 MG/24 HR TDSY TD SCH (10:13)
[2019-03-07] MEDS: MoRPHine SULFATE CR 15 MG TABCR PO SCH ×2 (10:13→22:34)
[2019-03-07] MEDS: HYDROmorphone INJ 1 MG/ML SYRINGE IV PRN ×2 (10:22→21:15)
[2019-03-07] MEDS: AMOXICILLIN 500 MG CAP PO SCH (10:26)
--- NOTE | 2019-03-07 10:38 | Cardiology Progress Note ---
Date of Service March 07, 2019 Assessment & Plan (1) Acute on chronic diastolic congestive heart failure, NYHA class 3: Fluid balance negative 3 L overnight. Continue Lasix to 40 mg IV twice daily. Repeat BMP in a.m. follow daily weight, and fluid balance. Tentative plan for transition to oral diuretic therapy in 24 to 48 hours pending review of a.m. labs. Recommend 1500 cc fluid restriction. (2) Chest pain: Resolved. Secondary to acute decompensated diastolic heart failure. (3) Supratherapeutic INR: Patient received 5 mg vitamin K on admission. INR 1.8 today. No signs/symptoms of GI/ blood loss. Restart Coumadin today. Repeat INR in a.m. (4) UTI (urinary tract infection) due to urinary indwelling Lloyd catheter: Recently treated for resistant urinary tract infection and with Invanz. Repeat urine culture with Enterococcus faecalis. Antibiotics per internal medicine. (5) Pulmonary embolism: (6) Hypoventilation associated with obesity: (7) Tobacco abuse disorder: (8) Morbid obesity: Subjective Patient seen and examined the bedside. Fluid balance negative 3 L overnight. Weight is down 14 pounds since admission. Patient reports feeling fatigued this morning. Back pain unchanged. No orthopnea. Edema improving. Denies palpitations, lightheadedness, dizziness, syncope, or near syncope. Review of Systems Review of Systems: All systems reviewed & are unremarkable except as noted in HPI & below Physical Exam Physical Exam: General: NAD, morbid obesity, awake alert and oriented x3. HEENT: Normocephalic. Atraumatic. Conjunctiva pink, no scleral icterus. Neck: No carotid bruits, the carotid upstrokes are brisk. Unable to accurately assess JVD and/or HJR due to body habitus. Heart: Regular, borderline tachycardic, heart sounds are distant, normal S-1 and S-2 no S-3 or S-4 gallop. No murmurs or rub appreciated. PMI is not displaced. No RV heave. Lungs: Diminished breath sounds bilaterally with mild end expiratory wheezing. No rales or rhonchi. abdomen: Normal bowel sounds. Soft. Nontender. No masses or organomegaly. No abdominal bruits. Extremities: 2+ bilateral pitting pretibial edema with stasis changes. (improved) Pulses: radial=2/4. Neuro: Cranial nerves grossly intact. No focal motor deficit. Results & Data Vital Signs (Past 12 Hours) Vital Signs Temp Pulse Pulse Resp BP Pulse Ox 03/07/19 07:26 36.7 C 78 18 114/65 92 03/07/19 06:59 80 20 92 03/07/19 05:30 87 18 126/72 94 03/07/19 00:22 85 03/06/19 23:31 36.7 C 93 H 18 129/71 93 Laboratory Results Laboratory Results - last 24 hr 03/07/19 03/07/19 05:44 05:44 PT 17.7 H INR 1.8 H Sodium 138 Potassium 3.7 Chloride 102 Carbon Dioxide 32 Anion Gap 4.0 BUN 18 Creatinine 1.07 Est Cr Clr Drug Dosing 153.5 Est GFR ( Amer) 94.6 Est GFR (Non-Af Amer) 81.7 BUN/Creatinine Ratio 16.7 Glucose 145 H Calcium 8.8 Magnesium 2.3 (1) Chest pain Chest pain type: unspecified Qualified Code(s): R07.9 - Chest pain, unspecified (2) UTI (urinary tract infection) due to urinary indwelling Lloyd catheter Indwelling urinary catheter type: indwelling urethral catheter Encounter type: initial encounter Qualified Code(s): T83.511A - Infection and inflammatory reaction due to indwelling urethral catheter, initial encounter; N39.0 - Urinary tract infection, site not specified (3) Pulmonary embolism Pulmonary embolism type: unspecified Chronicity: chronic Acute cor pulmonale presence: without acute cor pulmonale Qualified Code(s): I27.82 - Chronic pulmonary embolism
[2019-03-07] MEDS: AMOXICILLIN/CLAVULANATE 875 MG TAB PO SCH ×2 (11:47→16:57)
[2019-03-07] MEDS: LORazepam 1 MG TAB PO PRN ×2 (12:47→22:34)
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
--- NOTE | 2019-03-07 19:23 | Infectious Disease Progress Nt ---
Date of Service March 07, 2019 Assessment & Plan (1) UTI (urinary tract infection) due to urinary indwelling Lloyd catheter: Patient with possible urinary tract infection in the selling of indwelling Lloyd catheter with enterococcus and coagulase-negative staph. To continue with Augmentin 875 mg twice daily for 10-day course. Await change of Lloyd catheter by urology. Will follow. (2) Enterococcal infection: Subjective Patient seen for follow-up for urinary tract infection. Fatigue, less short of breath today. Remains afebrile. Tolerating Augmentin without apparent difficulty. Review of Systems Review of Systems: All systems reviewed & are unremarkable except as noted in HPI & below Physical Exam Constitutional: WD/WN, vitals as above + obese Eyes: PERRL, conjunctivae normal, anicteric sclerae ENMT: external ear and nose normal, oropharynx normal Neck: trachea midline, no thyromegaly normal visual inspection Respiratory: normal respiratory effort and normal percussion; no respiratory distress Auscultation: + rales Cardiovascular: RRR, no murmur, no edema Heart Sounds: no gallop and no cardiac rub Gastrointestinal (Abdomen): normal bowel sounds, soft, nontender, no hepatosplenomegaly Percussion/Palpation: no abdominal mass Musculoskeletal: Head/Neck/Chest: normocephalic, head atraumatic and neck supple Extremities: strength 5/5 throughout; no cyanosis and no clubbing Skin: no rashes, warm and dry no lesions Neurologic: moves all extremities; no focal motor deficits Speech / Cognition: + abnormal speech Psychiatric: A+Ox3, euthymic affect Lymphatic: no cervical or axillary lymphadenopathy no inguinal lymphadenopathy Results & Data Vital Signs (Past 12 Hours) Vital Signs Temp Pulse Resp BP Pulse Ox 03/07/19 15:40 36.7 C 79 19 147/68 H 91 03/07/19 14:10 87 20 94 03/07/19 11:37 36.4 C L 87 20 102/64 96 03/07/19 07:26 36.7 C 78 18 114/65 92 Laboratory Results [facility] 03/07/19 05:44 Sodium 138 Potassium 3.7 Chloride 102 Carbon Dioxide 32 BUN 18 Creatinine 1.07 Glucose 145 H Calcium 8.8 Diagnostic Findings Microbiology 03/03/19 20:30 Urine,Indwelling Cath Urine Culture - Final Enterococcus faecalis Coag negative Staphylococcus (1) UTI (urinary tract infection) due to urinary indwelling Lloyd catheter Encounter type: initial encounter Indwelling urinary catheter type: indwelling urethral catheter Qualified Code(s): T83.511A - Infection and inflammatory reaction due to indwelling urethral catheter, initial encounter; N39.0 - Urinary tract infection, site not specified
[2019-03-07] MEDS ORDERED: HYDROmorphone INJ 0.5 MG/0.5 ML SYR IV STA (21:55)
[2019-03-08] MEDS: TRAMADOL HCL 50 MG TABLET PO PRN ×5 (04:06→23:40)
[2019-03-08] MEDS: OXYCODONE HCL IR 5 MG TAB (IMMEDIATE RELEASE) PO PRN ×5 (04:07→22:20)
[2019-03-08 05:55] LABS: INR 1.3 (0.9-1.1); Prothrombin Time 12.8 Seconds (9.0-12.0)
[2019-03-08] MEDS: ALBUT/IPRATROP 3MG/0.5MG NEB 3 ML VIAL NEB SCH ×3 (06:54→18:56)
[2019-03-08] MEDS: DULOXETINE HCL 60 MG CAP PO SCH (08:09)
[2019-03-08] MEDS: DOCUSATE SODIUM 100 MG CAP PO SCH (08:09)
[2019-03-08] MEDS: CYCLOBENZAPRINE HCL 10 MG TAB PO SCH ×2 (08:09→21:22)
[2019-03-08] MEDS: SPIRONOLACTONE 25 MG TAB PO SCH ×2 (08:10→16:23)
[2019-03-08] MEDS: POTASSIUM CHLORIDE 10 MEQ TABCR PO SCH ×2 (08:10→21:23)
[2019-03-08] MEDS: MAGNESIUM OXIDE 400 MG TAB PO SCH (08:11)
[2019-03-08] MEDS: ISOSORBIDE DINITRATE 10 MG TAB PO SCH ×2 (08:11→11:47)
[2019-03-08] MEDS: GABAPENTIN 300 MG CAP PO SCH ×3 (08:11→21:24)
[2019-03-08] MEDS: TAMSULOSIN HCL 0.4 MG CAP PO SCH (08:11)
[2019-03-08] MEDS: PANTOprazole 40 MG TAB PO SCH (08:12)
[2019-03-08] MEDS: AMOXICILLIN/CLAVULANATE 875 MG TAB PO SCH ×2 (08:12→16:25)
[2019-03-08] MEDS: FUROSEMIDE 40 MG in SYRINGE 0 ML IV SCH (08:12)
[2019-03-08] MEDS: METOPROLOL SUCC 25MG EXT REL TAB PO SCH ×2 (08:12→21:24)
[2019-03-08] MEDS: POLYETHYLENE (MIRALAX) 17 GM PACK PO PRN (08:17)
[2019-03-08] MEDS: predniSONE 20 MG TAB PO SCH (08:18)
[2019-03-08] MEDS: FINASTERIDE 5 MG TAB PO SCH (08:18)
[2019-03-08] MEDS: MoRPHine SULFATE CR 15 MG TABCR PO SCH ×2 (08:19→21:27)
[2019-03-08] MEDS: NICOTINE 21 MG/24 HR TDSY TD SCH (08:19)
[2019-03-08] MEDS: ASPIRIN 81 MG ECTAB PO SCH (08:21)
[2019-03-08] MEDS: TIOTROPIUM BROMIDE 5 PUFF/90 MCG INH INH SCH (08:21)
[2019-03-08] MEDS: FLUTICASONE PROPIONATE NA SPR 16 GM BTL SCH (08:21)
[2019-03-08] MEDS: HYDROmorphone INJ 1 MG/ML SYRINGE IV PRN ×2 (10:17→21:25)
--- NOTE | 2019-03-08 12:58 | Cardiology Progress Note ---
Date of Service March 08, 2019 Assessment & Plan (1) Acute on chronic diastolic congestive heart failure, NYHA class 3: Repeat basic metabolic panel. Fluid balance negative 3.7 L overnight. Continue Lasix to 40 mg IV twice daily pending review of repeat BMP. Follow daily weight, and fluid balance. Recommend 1500 cc fluid restriction. (2) Chest pain: Resolved. Secondary to acute decompensated diastolic heart failure. (3) Supratherapeutic INR: Patient received 5 mg vitamin K on admission. INR 1.3 today. No signs/symptoms of GI/ blood loss. Restart Coumadin today. 5 mg ordered. Repeat INR in a.m. (4) UTI (urinary tract infection) due to urinary indwelling Lloyd catheter: Recently treated for resistant urinary tract infection and with Invanz. Repeat urine culture with Enterococcus faecalis. Antibiotics per internal medicine. (5) Pulmonary embolism: (6) Hypoventilation associated with obesity: (7) Tobacco abuse disorder: (8) Morbid obesity: Subjective Patient seen and examined at the bedside. Fluid balance -3.7 L overnight. Repeat BMP not drawn today. INR subtherapeutic. Wheezing has improved significantly. Denies orthopnea or PND. Lower extremity edema improving. Heart rate trending down into the 70s and 80s on telemetry. No dysrhythmias. Review of Systems Review of Systems: All systems reviewed & are unremarkable except as noted in HPI & below Physical Exam Physical Exam: General: NAD, morbid obesity, awake alert and oriented x3. HEENT: Normocephalic. Atraumatic. Conjunctiva pink, no scleral icterus. Neck: No carotid bruits, the carotid upstrokes are brisk. Unable to accurately assess JVD and/or HJR due to body habitus. Heart: Regular, borderline tachycardic, heart sounds are distant, normal S-1 and S-2 no S-3 or S-4 gallop. No murmurs or rub appreciated. PMI is not displaced. No RV heave. Lungs: Diminished breath sounds bilaterally with mild end expiratory wheezing. No rales or rhonchi. abdomen: Normal bowel sounds. Soft. Nontender. No masses or organomegaly. No abdominal bruits. Extremities: 2+ bilateral pitting pretibial edema with stasis changes. (improved) Pulses: radial=2/4. Neuro: Cranial nerves grossly intact. No focal motor deficit. Results & Data Vital Signs (Past 12 Hours) Vital Signs Temp Pulse Pulse Resp BP Pulse Ox 03/08/19 10:59 36.5 C 78 18 149/78 H 96 03/08/19 07:15 70 03/08/19 07:00 36.6 C 71 18 124/76 94 03/08/19 06:55 79 18 95 03/08/19 04:09 36.5 C 75 18 120/75 94 Laboratory Results Laboratory Results - last 24 hr 03/08/19 05:11 PT 12.8 H INR 1.3 H (1) UTI (urinary tract infection) due to urinary indwelling Lloyd catheter Encounter type: initial encounter Indwelling urinary catheter type: indwelling urethral catheter Qualified Code(s): T83.511A - Infection and inflammatory reaction due to indwelling urethral catheter, initial encounter; N39.0 - Urinary tract infection, site not specified (2) Pulmonary embolism Acute cor pulmonale presence: without acute cor pulmonale Chronicity: chronic Pulmonary embolism type: unspecified Qualified Code(s): I27.82 - Chronic pulmonary embolism (3) Chest pain Chest pain type: unspecified Qualified Code(s): R07.9 - Chest pain, unspecified
[2019-03-08] MEDS ORDERED: HYDROmorphone INJ 0.5 MG/0.5 ML SYR IV ONE (13:26)
[2019-03-08] MEDS ORDERED: DOCUSATE SODIUM/SENNA 50/8.6MG TAB PO ONE (13:43)
[2019-03-08 13:51] LABS: BUN Creatinine Ratio 20.1 (10-20); Creatinine Clr Calc Pharmacy 132.5 ml/min; Est GFR (African American) 79.2; Est GFR (Non-African American) 68.3; Potassium 3.7 mmol/L (3.5-5.1)
--- NOTE | 2019-03-08 15:38 | Hospitalist Progress Note ---
Date of Service March 08, 2019 Assessment & Plan (1) Acute on chronic diastolic congestive heart failure, NYHA class 3: Failed outpatient therapy with increasing dose of diuretics Chest x-ray no acute CHF Appreciate cardiology input and recommendation Continue Lasix 40 mg IV BID and Aldactone Continue Fluid restriction Monitor I/Os, daily weigh ECHO: compared to prior study no significant change. EF 55 to 60%, grade 1 diastolic dysfunction, right ventricular systolic function is with apical right ventricle appears hypokinetic Monitor electrolytes and kidney function Clinically improving (2) Chest pain: Chest pain likely due to CHF Serial troponin: Negative EKG did not show any acute change Monitor (3) Indwelling Lloyd catheter present: UTI due to Urinary indwelling Lloyd catheter Management as per urology Urine culture: Enterococcus faecalis, Coag negative Staph Continue Augmentin as per ID Appreciate ID/Urology recommendations Needs follow up with Urology upon discharge Continue Tamsulosin and Finasteride (4) Infection due to ESBL-producing Escherichia coli: History of ESBL UTI but did not finish the course of Augmentin recently UA suggestive of infection without any symptoms Management As above (5) Opioid dependence: Has chronic back pain under care of pain therapist No prescription of narcotics will be given on discharge Will not change any doses and/or frequency of narcotics while in the hospital Will give extra doses of intravenous pain medications while in the hospital to increase his mobility Discussed with the patient in detail (6) Pulmonary embolism: History of pulmonary embolism on oral Coumadin INR level supratherapeutic Received 5 mg of vitamin K INR now subtherapeutic Coumadin restarted (7) Depression with anxiety: continue current medications (8) Chronic back pain: As above Dilaudid 1 mg IV twice daily can be given with with holding the corresponding doses of short-acting morphine sulfate DVT Px: Coumadin Disposition: PT/OT prior to discharge Subjective Patient seen and examined at the bedside. Patient had transient chest pain this morning which resolved LE edema improving Denies SOB, dizziness, abd pain No other complaints Lloyd catheter changed Review of Systems Review of Systems: All systems reviewed & are unremarkable except as noted in HPI & below Physical Exam Physical Exam: Physical Exam: Vitals signs as noted above General Appearance:Morbidly Obese, no apparent distress Head: normocephalic, Atraumatic Eyes: normal inspection, EOMI Neck: supple, Trachea midline Respiratory/Chest: Decreased breath sounds, scattered wheezes Cardiovascular: S1, S2, No murmur Abdomen/GI:Soft, Non tender, Bowel sounds present Extremities/Musculoskelatal:normal inspection, B/L LE edema Neurologic/Psych:AAOX3, grossly no focal neurological deficits Skin: normal color, warm Results & Data Vital Signs (Past 12 Hours) Vital Signs Temp Pulse Pulse Resp BP Pulse Ox 03/08/19 10:59 36.5 C 78 18 149/78 H 96 03/08/19 07:15 70 03/08/19 07:00 36.6 C 71 18 124/76 94 03/08/19 06:55 79 18 95 03/08/19 04:09 36.5 C 75 18 120/75 94 Laboratory Results BMP 03/08/19 13:07 Sodium 140 Potassium 3.7 Chloride 103 Carbon Dioxide 31 BUN 25 H Creatinine 1.24 Glucose 153 H Calcium 9.0 (1) Chest pain Chest pain type: unspecified Qualified Code(s): R07.9 - Chest pain, unspecified (2) Pulmonary embolism Pulmonary embolism type: unspecified Chronicity: chronic Acute cor pulmonale presence: without acute cor pulmonale Qualified Code(s): I27.82 - Chronic pulmonary embolism
[2019-03-08] MEDS ORDERED: WARFARIN SOD 5 MG TAB PO SCH (16:00)
[2019-03-08] MEDS ORDERED: HYDROmorphone INJ 1 MG/ML SYRINGE IV STA (16:13)
[2019-03-08] MEDS: FUROSEMIDE 40 MG TAB PO SCH (16:58)
[2019-03-09] MEDS: LORazepam 1 MG TAB PO PRN (01:09)
[2019-03-09] MEDS: OXYCODONE HCL IR 5 MG TAB (IMMEDIATE RELEASE) PO PRN ×2 (02:48→09:15)
[2019-03-09] MEDS: TRAMADOL HCL 50 MG TABLET PO PRN ×2 (03:31→07:50)
[2019-03-09] MEDS: ALBUT/IPRATROP 3MG/0.5MG NEB 3 ML VIAL NEB SCH (07:15)
[2019-03-09] MEDS: ISOSORBIDE DINITRATE 10 MG TAB PO SCH (07:43)
[2019-03-09] MEDS: MoRPHine SULFATE CR 15 MG TABCR PO SCH (07:50)
[2019-03-09] MEDS: TAMSULOSIN HCL 0.4 MG CAP PO SCH (07:50)
[2019-03-09] MEDS: ASPIRIN 81 MG ECTAB PO SCH (07:50)
[2019-03-09] MEDS: SPIRONOLACTONE 25 MG TAB PO SCH (07:51)
[2019-03-09] MEDS: FINASTERIDE 5 MG TAB PO SCH (07:51)
[2019-03-09] MEDS: predniSONE 20 MG TAB PO SCH (07:51)
[2019-03-09] MEDS: MAGNESIUM OXIDE 400 MG TAB PO SCH (07:51)
[2019-03-09] MEDS: NICOTINE 21 MG/24 HR TDSY TD SCH (07:52)
[2019-03-09] MEDS: AMOXICILLIN/CLAVULANATE 875 MG TAB PO SCH (07:52)
[2019-03-09] MEDS: POTASSIUM CHLORIDE 10 MEQ TABCR PO SCH (07:52)
[2019-03-09] MEDS: TIOTROPIUM BROMIDE 5 PUFF/90 MCG INH INH SCH (07:53)
[2019-03-09] MEDS: FLUTICASONE PROPIONATE NA SPR 16 GM BTL SCH (07:53)
[2019-03-09] MEDS: CYCLOBENZAPRINE HCL 10 MG TAB PO SCH (07:54)
[2019-03-09] MEDS: METOPROLOL SUCC 25MG EXT REL TAB PO SCH (07:54)
[2019-03-09] MEDS: GABAPENTIN 300 MG CAP PO SCH (07:54)
[2019-03-09] MEDS: DULOXETINE HCL 60 MG CAP PO SCH (07:55)
[2019-03-09] MEDS: PANTOprazole 40 MG TAB PO SCH (07:56)
[2019-03-09] MEDS: FUROSEMIDE 40 MG TAB PO SCH (07:56)
[2019-03-09 08:02] LABS: Hematocrit (blood only) 34.5 % (42-52); Hemoglobin 10.9 g/dL (14.0-18.0); Mean Corpuscular Hgb Conc 31.6 g/dL (32-36); Mean Corpuscular Volume 79.3 fL (80-100); Mean Platelet Volume 10.1 fL (7.4-10.4); Nucleated RBC # (auto) 0.02 K/uL (0-0); Nucleated RBC % (auto) 0.1 %; Platelet Count 358 K/uL (130-400); RDW Coefficient of Variation 16.8 % (11.5-14.5); RDW Standard Deviation 48.4 fL (36.4-46.3); Red Blood Count 4.35 M/uL (4.7-6.1); White Blood Count 20.09 K/uL (4.8-10.8)
[2019-03-09 08:10] LABS: INR 1.1 (0.9-1.1); Prothrombin Time 10.9 Seconds (9.0-12.0)
--- NOTE | 2019-03-09 08:26 | Cardiology Progress Note ---
Date of Service March 09, 2019 Assessment & Plan (1) Acute on chronic diastolic congestive heart failure, NYHA class 3: Intravenous diuretics discontinued. Recommend torsemide 20 mg twice daily. Will schedule close outpatient cardiology follow-up in 1 week with the heart failure clinic. Maintain 1500 cc fluid restriction. Discussed importance of limiting sodium intake. Plan for discharge pending review of a.m. labs. (2) Chest pain: Resolved. Secondary to acute decompensated diastolic heart failure. (3) Supratherapeutic INR: Patient received 5 mg vitamin K on admission. INR 1.1 today. Received 5 mg of Coumadin yesterday. Per review of outpatient chart, most recent dose of Coumadin range between 10 mg and 7.5 mg daily. Will give 10 mg p.o. x1 now. Patient is not a good candidate for Lovenox due to morbid obesity. Pulmonary embolus diagnosed in September 2018. Clot burden improving per most recent CTA of chest 02/11/2019 as per chart review. (4) UTI (urinary tract infection) due to urinary indwelling Lloyd catheter: Chronic indwelling Lloyd catheter. Recently treated for resistant urinary tract infection and with Invanz. Repeat urine culture with Enterococcus faecalis. Antibiotics per internal medicine. (5) Pulmonary embolism: (6) Hypoventilation associated with obesity: (7) Tobacco abuse disorder: (8) Morbid obesity: Subjective Patient seen and examined at the bedside. Fluid balance negative approximately 700 cc overnight. A.m. labs pending. Patient states most recent dose of torsemide was 100mg daily. Feeling better from a cardiovascular standpoint. Wheezing has resolved. No orthopnea or PND. Lower extremity edema markedly improved. Weight is down 16 pounds since admission. Transition to oral diuretic therapy yesterday. Offers no new concerns/complaints. Review of Systems Review of Systems: All systems reviewed & are unremarkable except as noted in HPI & below Physical Exam Physical Exam: General: NAD, morbid obesity, awake alert and oriented x3. HEENT: Normocephalic. Atraumatic. Conjunctiva pink, no scleral icterus. Neck: No carotid bruits, the carotid upstrokes are brisk. Unable to accurately assess JVD and/or HJR due to body habitus. Heart: Regular, borderline tachycardic, heart sounds are distant, normal S-1 and S-2 no S-3 or S-4 gallop. No murmurs or rub appreciated. PMI is not displaced. No RV heave. Lungs: Diminished breath sounds bilaterally with mild end expiratory wheezing. No rales or rhonchi. abdomen: Normal bowel sounds. Soft. Nontender. No masses or organomegaly. No abdominal bruits. Extremities: 1+ bilateral pitting pretibial edema with stasis changes. (improved) Pulses: radial=2/4. Neuro: Cranial nerves grossly intact. No focal motor deficit. Results & Data Vital Signs (Past 12 Hours) Vital Signs Temp Pulse Pulse Resp BP Pulse Ox 03/09/19 07:14 36.6 C 71 18 129/73 92 03/09/19 03:44 36.6 C 79 22 131/71 95 03/09/19 00:23 86 03/08/19 23:00 36.7 C 80 19 142/69 H 92 03/08/19 20:50 36.7 C 82 21 136/70 93 (1) UTI (urinary tract infection) due to urinary indwelling Lloyd catheter Encounter type: initial encounter Indwelling urinary catheter type: indwelling urethral catheter Qualified Code(s): T83.511A - Infection and inflammatory reaction due to indwelling urethral catheter, initial encounter; N39.0 - Urinary tract infection, site not specified (2) Pulmonary embolism Acute cor pulmonale presence: without acute cor pulmonale Chronicity: chronic Pulmonary embolism type: unspecified Qualified Code(s): I27.82 - Chronic pulmonary embolism (3) Chest pain Chest pain type: unspecified Qualified Code(s): R07.9 - Chest pain, unspecified
[2019-03-09 08:34] LABS: BUN Creatinine Ratio 25.4 (10-20); Calcium 9.5 mg/dl (8.5-10.1); Creatinine Clr Calc Pharmacy 155.9 ml/min; Est GFR (African American) 96.8; Est GFR (Non-African American) 83.5; Potassium 3.9 mmol/L (3.5-5.1)
[2019-03-09] MEDS ORDERED: WARFARIN SOD 10 MG TAB PO ONE (08:51)
[2019-03-09] MEDS: DOCUSATE SODIUM 100 MG CAP PO SCH (09:16)
--- NOTE | 2019-03-09 11:06 | Hospitalist Progress Note ---
Date of Service March 09, 2019 Assessment & Plan (1) Acute on chronic diastolic congestive heart failure, NYHA class 3: Failed outpatient therapy with increasing dose of diuretics Chest x-ray no acute CHF Appreciate cardiology input and recommendation Continue Lasix 40 mg IV BID>>Transitioned to Torsemide 20mg BID Also on Aldactone 50mg BID Continue Fluid restriction 1.5 L per day Monitor I/Os, daily weigh ECHO: compared to prior study no significant change. EF 55 to 60%, grade 1 d iastolic dysfunction, right ventricular systolic function is with apical right ventricle appears hypokinetic Monitor electrolytes and kidney function Clinically improved Needs follow up with Cardiology upon discharge (2) Chest pain: Chest pain likely due to CHF Serial troponin: Negative EKG did not show any acute change Chest pain resolved (3) Indwelling Lloyd catheter present: UTI due to Urinary indwelling Lloyd catheter Management as per urology Urine culture: Enterococcus faecalis, Coag negative Staph Continue Augmentin as per ID Day #3/10 Appreciate ID/Urology recommendations Needs follow up with Urology upon discharge Continue Tamsulosin and Finasteride (4) Infection due to ESBL-producing Escherichia coli: History of ESBL UTI but did not finish the course of Augmentin recently UA suggestive of infection without any symptoms Management As above (5) Opioid dependence: Has chronic back pain under care of pain therapist No prescription of narcotics will be given on discharge Will not change any doses and/or frequency of narcotics while in the hospital Will give extra doses of intravenous pain medications while in the hospital to increase his mobility Discussed with the patient in detail (6) Pulmonary embolism: History of pulmonary embolism on oral Coumadin INR level supratherapeutic Received 5 mg of vitamin K during hospitalization INR now subtherapeutic Give 10mg Coumadin today (7) Depression with anxiety: continue current medications (8) Chronic back pain: As above DVT Px: Coumadin Disposition: Plan to discharge home today Subjective Patient seen and examined at the bedside. Doing much better today No new complaints LE edema improved Wheezing resolved Denies chest pain, SOB, dizziness, abd pain Planned to be discharged home today Review of Systems Review of Systems: All systems reviewed & are unremarkable except as noted in HPI & below Physical Exam Physical Exam: Physical Exam: Vitals signs as noted above General Appearance:Morbidly Obese, no apparent distress Head: normocephalic, Atraumatic Eyes: normal inspection, EOMI Neck: supple, Trachea midline Respiratory/Chest: Decreased breath sounds, CTA Cardiovascular: S1, S2, No murmur Abdomen/GI:Soft, Non tender, Bowel sounds present Extremities/Musculoskelatal:normal inspection, B/L LE edema imprvoed Neurologic/Psych:AAOX3, grossly no focal neurological deficits Skin: normal color, warm Results & Data Vital Signs (Past 12 Hours) Vital Signs Temp Pulse Pulse Resp BP Pulse Ox 03/09/19 07:14 36.6 C 71 18 129/73 92 03/09/19 03:44 36.6 C 79 22 131/71 95 03/09/19 00:23 86 Laboratory Results Short CBC 03/09/19 Range/Units 07:19 WBC 20.09 H (4.8-10.8) K/uL Hgb 10.9 L (14.0-18.0) g/dL Hct 34.5 L (42-52) % Plt Count 358 (130-400) K/uL BMP 03/08/19 03/09/19 13:07 07:19 Sodium 140 139 Potassium 3.7 3.9 Chloride 103 103 Carbon Dioxide 31 31 BUN 25 H 27 H Creatinine 1.24 1.05 Glucose 153 H 168 H Calcium 9.0 9.5 (1) Pulmonary embolism Acute cor pulmonale presence: without acute cor pulmonale Chronicity: chronic Pulmonary embolism type: unspecified Qualified Code(s): I27.82 - Chronic pulmonary embolism (2) Chest pain Chest pain type: unspecified Qualified Code(s): R07.9 - Chest pain, unspe cified
--- NOTE | 2019-03-09 11:49 | Discharge Summary ---
Date of Service March 09, 2019 Admission HPI Per Admitting Provider CHIEF COMPLAINT: Chest pain, syncope and shortness of breath. HISTORY OF PRESENT ILLNESS: This is a 48-year-old male with past medical history significant for chronic diastolic congestive heart failure, pulmonary embolism, on Coumadin, hypertension, morbid obesity, chronic obstructive pulmonary disease, ongoing tobacco use, depression, anxiety, migraines, chronic pain, history of recurrent hospitalizations for decompensated congestive heart failure and chronic pain and also recently had extended spectrum beta-lactamase urinary tract infection treated with I.V. Invanz for 4-5 days, history of benign prostatic hypertrophy, on Lloyd, he has an appointment with urology next week, comes in because of chest pain which is chronic for him and also he is stating that whenever he stands up, he is passing out for a few seconds and also he is gaining weight. He was discharged on 02/11/2019, saw primary care physician a couple of times on 02/14/2019 and also on 02/27/2019. Because he was complaining of increasing lower extremity edema, primary care physician increased TORSEMIDE TO 100MG DAILY on 02/27/2019 as his weight was increased from 453 to 457 pounds on February 27 and today it is 461 pounds. He states he is getting short of breath, he barely can walk at home because of his increasing weight. He states he is compliant with taking his medications regularly. He is restrictive with salt intake and seems compliant with fluid intake He has chronic headaches. No blurred vision. No earache. No sore throat. No difficulty swallowing. Appetite is okay. No cough. Complains of some right upper quadrant abdominal discomfort. He has his chronic back pain. He is still on Lloyd. Urine looks clear. Denies any blood in stools or black stools. Lower extremity edema present. Hemodynamically stable in the Emergency Room. Admission Exam Per Admitting Provider PHYSICAL EXAMINATION: GENERAL: The patient is alert and oriented, not in acute distress, morbidly obese. VITAL SIGNS: Temperature 36.6, pulse 109, respiratory rate 22, blood pressure 130/80 and oxygen 94% on room air. HEENT: No pallor. No icterus. Pupils are equal, round and reactive to light. NECK: No JVD. No neck masses. Supple. CARDIOVASCULAR: S1, S2 heard. Regular rate and rhythm. No murmurs. RESPIRATORY SYSTEM: Normal AP diameter. No accessory muscle use. Mild bilateral wheezing. No crackles. ABDOMEN: Soft. Bowel sounds present. RUQ tenderness No guarding. No rigidity. CENTRAL NERVOUS SYSTEM: Cranial nerves II through XII grossly intact. Nonfocal. EXTREMITIES: Lower extremity gross edema present with mild erythema. Principal Diagnosis Discharge Information Discharge Diagnosis Acute on chronic diastolic congestive heart failure UTI due to Urinary indwelling Lloyd catheter Discharge Goals Decrease discomfort,Diagnostic testing,Improve function Discharge Activity Limitations Resume your previous activity Discharge Data Allergies Allergy/AdvReac Type Severity Reaction Status Date / Time fentanyl Allergy Intermediate RASH/HIVES/SKIN Verified 03/03/19 21:30 REDNESS acetaminophen AdvReac Intermediate Unknown Verified 03/03/19 21:30 valproic acid AdvReac Intermediate PANCREATITS Verified 03/03/19 21:30 Consultations 03/03/19 23:25 ED Decision to Admit Stat 03/04/19 00:37 Consult Case Management - Discharge Planning Routine 03/04/19 08:00 Consult Cardiology Routine 03/05/19 08:08 Consult Infectious Diseases Routine 03/07/19 10:09 Consult Urology Routine Procedures Performed Lumbar CT: 1. No acute osseous injury of the lumbar spine allowing for image quality, which is degraded by body habitus. This limits diagnostic sensitivity of the exam to a mild to moderate degree. 2. Degenerative changes of the lower lumbar spine. Gall Bladder USD: 1. No cholelithiasis or biliary ductal dilatation. 2. Hepatic steatosis and hepatomegaly. Correlate with liver function tests to exclude steatohepatitis as a cause for abdominal pain. CXR: No acute cardiopulmonary findings. Ordered Studies 03/04/19 00:37 US gallbladder Urgent 03/04/19 20:15 CT lumbar spine wo con Urgent Hospital Course (1) Acute on chronic diastolic congestive heart failure, NYHA class 3: Failed outpatient therapy with increasing dose of diuretics Chest x-ray no acute CHF Appreciate cardiology input and recommendation Continue Lasix 40 mg IV BID>>Transitioned to Torsemide 20mg BID Also on Aldactone 50mg BID Continue Fluid restriction 1.5 L per day Monitor I/Os, daily weigh ECHO: compared to prior study no significant change. EF 55 to 60%, grade 1 adan stolic dysfunction, right ventricular systolic function is with apical right ventricle appears hypokinetic Monitor electrolytes and kidney function Clinically improved Needs follow up with Cardiology upon discharge (2) Chest pain: Chest pain likely due to CHF Serial troponin: Negative EKG did not show any acute change Chest pain resolved (3) Indwelling Lloyd catheter present: UTI due to Urinary indwelling Lloyd catheter Management as per urology Urine culture: Enterococcus faecalis, Coag negative Staph Continue Augmentin as per ID Day #/ Appreciate ID/Urology recommendations Needs follow up with Urology upon discharge Continue Tamsulosin and Finasteride (4) Infection due to ESBL-producing Escherichia coli: History of ESBL UTI but did not finish the course of Augmentin recently UA suggestive of infection without any symptoms Management As above (5) Opioid dependence: Has chronic back pain under care of pain therapist No prescription of narcotics will be given on discharge Will not change any doses and/or frequency of narcotics while in the hospital Will give extra doses of intravenous pain medications while in the hospital to increase his mobility Discussed with the patient in detail (6) Pulmonary embolism: History of pulmonary embolism on oral Coumadin INR level supratherapeutic Received 5 mg of vitamin K during hospitalization INR now subtherapeutic Give 10mg Coumadin today (7) Depression with anxiety: continue current medications (8) Chronic back pain: As above DVT Px: Coumadin Disposition: Plan to discharge home today Total Time Total Time Spent Total Time Spent (In Minutes): 43 minutes Total Time Includes: Examination of the Patient, Discharge Planning, Medication Reconciliation, Communication With Other Providers and Other Discharge Plan Discharge Items Patient Disposition: Home - Home Health Services Reason For Visit: CHEST PAIN, SOB, SYNCOPE Discharge Diagnosis: Acute on chronic diastolic congestive heart failure UTI due to Urinary indwelling Lloyd catheter Condition: Good Discharge Goals: Decrease discomfort, Diagnostic testing and Improve function Activity: Resume your previous activity Exercise/Sports: Gradually increase as tolerated Non-emergency contact: Primary Care Provider, Splitting Machine Feeder and Urologist Call non-emergency contact if: you have any medication questions, your symptoms worsen, your pain is not controlled, your pain is worsening, your pain is unusual for you, your pain is concerning for you and you have a fever Follow-up/Referrals: Owen Hogan MD [Primary Care Provider] - Diet: Carb Consistent or DM2, Heart Healthy and Low Sodium (2gm) Fluids: 1500ml (6 cups) Addtl Provider Instructions: Follow up with your PCP on March 16, 2019 at 9:00AM Follow up with Cardiology on March 13, 2019 at 3:15PM Follow up with your Urologist as recommended by your Urologist Follow up with Coumadin clinic for management of Coumadin dosing and INR monitoring Complete the antibiotic course as prescribed Seek immediate medical attention if your symptoms reoccur or worsen Call your Primary Care doctor if any of the following symptoms or problems start or get worse: * Shortness of breath or difficulty breathing * Wake up at night short of breath * Chest pain * Cough * Swelling of your hands, feet, or legs * More fatigued or tired with your normal activity * Palpitations - sudden fast heart beats WEIGHT * Weigh yourself every morning after using the bathroom. * Use the same scale. * Wear the same amount of clothing. * Write your weight down on a chart. * Call your Primary Care doctor if you gain more than 2-3 pounds in 1-2 days. MEDICATIONS * Use this discharge instruction sheet for medication instructions. * Take your medications at the time your doctor ordered. * Do not skip a dose of your medicines. * If you miss a dose of medicine, take it as soon as possible, but DO NOT DOUBLE A DOSE. * Read your medicine information when you get home. * Know all of the side effects of your medicine. If in doubt, ask your pharmacist * Call your Primary Care doctor's office if you have any side effects. * Be sure all of your doctors know what medicine and herbs you take (including cold, flu, and herbal medicine). Take the following with you to your follow-up doctor appointments: * Weight Chart * Medication List * List of questions Do not drink excessive alcohol, beer or wine. Prescriptions: New torsemide 10 mg Tablet 20 mg PO BID17 30 Days Qty: 60 RF: 1 amoxicillin-pot clavulanate 875-125 mg Tablet 1 tab PO BIDM 7 Days Qty: 14 RF: 0 Continued gabapentin 300 mg Capsule 300 mg PO TID RF: 0 albuterol sulfate [ProAir HFA] 90 mcg/actuation Hfa Aerosol Inhaler 2 puff INHALATION Q4H PRN (Reason: Wheezing) RF: 0 ondansetron 4 mg Tablet,Disintegrating 4 mg PO Q4H PRN (Reason: Nausea And Vomiting) RF: 0 polyethylene glycol 3350 [Miralax] 17 gram powder in packet 17 g PO Q24H PRN (Reason: Constipation) RF: 0 nitroglycerin [Nitrostat] 0.4 mg tablet, sublingual 0.4 mg Sublingual DIRECTED PRN (Reason: CHEST PAIN) RF: 0 docusate sodium 100 mg capsule 100 mg PO BID RF: 0 metoprolol succinate 25 mg tablet extended release 24 hr 25 mg PO BID RF: 0 Fleet Enema 19-7 gram/118 mL Enema 133 ml NE DIRECTED PRN (Reason: Constipation) RF: 0 nystatin 100,000 unit/gram Powder 1 applic TOPICAL BID PRN (Reason: Skin Irritation) RF: 0 ipratropium-albuterol 0.5 mg-3 mg(2.5 mg base)/3 mL Solution For Nebulization 3 ml INHALATION Q4H PRN (Reason: Shortness Of Breath Or Wheezing) RF: 0 magnesium oxide 400 mg (241.3 mg magnesium) Tablet 400 mg PO QAM Qty: 0 RF: 0 spironolactone 50 mg tablet 50 mg PO BID RF: 0 warfarin 2.5 mg Tablet 5 mg PO DAILY RF: 0 tramadol 50 mg tablet 50 mg PO Q4H PRN (Reason: Pain) RF: 0 oxycodone 15 mg tablet 15 mg PO Q4H RF: 0 morphine [MS Contin] 15 mg tablet extended release 15 mg PO Q12H RF: 0 lorazepam 1 mg tablet 1 mg PO TID PRN (Reason: Anxiety) RF: 0 potassium chloride 10 mEq tablet,ER particles/crystals 10 meq PO BID RF: 0 omeprazole 20 mg capsule,delayed release(DR/EC) 20 mg PO QAM RF: 0 hydroxyzine HCl 25 mg tablet 25 mg PO QID PRN (Reason: Anxiety) RF: 0 fluticasone propionate 50 mcg/actuation spray,suspension 2 spray Intranasal QAM RF: 0 aspirin [Ecotrin Low Strength] 81 mg tablet,delayed release (DR/EC) 81 mg PO QAM RF: 0 duloxetine 60 mg capsule,delayed release(DR/EC) 60 mg PO QAM RF: 0 isosorbide dinitrate 10 mg tablet 10 mg PO BID RF: 0 Spiriva with HandiHaler 18 mcg capsule, w/inhalation device 1 puff inhalation DAILY RF: 0 finasteride 5 mg tablet 5 mg PO QAM RF: 0 tamsulosin [Flomax] 0.4 mg Capsule 0.4 mg PO DAILY RF: 0 cyclobenzaprine 10 mg 10 mg PO BID RF: 0 Stand-Alone Forms: Call Back Authorization, [facility] Discharge Orders: Discharge Order (Routine); Ordered 03/09/19 Ordered By: Dipesh Wright Admission Data Admit Date/Time: 03/04/19 00:02 Attending Provider: Dipesh Wright Admit Provider: Everardo Ibarra Primary Care Provider: Owen Hogan Other Providers: Everardo Ibarra ; Yvon Del Valle ; Dick Cardoza ; Miguel Angel Lee ; Jacob Penn ; Manuel English ; Owen Saavedra ; Berna Richardson ; Josefina Chavez ; Aleksandr Jaimes. ; [place] ; Arron Kenney I. ; Augustus Vasquez Service: Telemetry Other Interventions: Discharge Summary Assessment (RN) Last Done: 03/09/19 11:49 Pending Studies at Discharge: No DC Date/Time DO NOT enter until pt leaves facility: 03/09/19 12:05
[2019-03-09] MEDS ORDERED: TORSEMIDE 10 MG TAB PO SCH (17:00)
== END 2019-03-09 12:05 | disposition home health service (06) ==
LOC: ED 19:24 → INTOOBSV 23:26 → 2S 23:26 → SUATTDRO 03-04 00:02 → 2S 03-04 00:04

== ENCOUNTER 2019-03-19 21:45 | Inpatient (IN) ==
[2019-03-19 23:49] LABS: Appearance Urine Cloudy (Clear); Bilirubin Urine Negative (Negative); Blood Urine 3+ (Negative); Color Urine Red; Glucose Urine UA Trace (Negative); Ketones Urine 1+ (Negative); Leukocyte Esterase Urine Negative (Negative); Nitrite Urine Negative (Negative); Protein Urine 2+ (Negative); RBC Urine Automated >30 /hpf (0-4); Specific Gravity Urine 1.029 (1.000-1.030); Urobilinogen Urine Negative (Negative); pH Urine 5.5 (4.5-7.5)
[2019-03-19 23:54] LABS: Amphetamines+Metham, Urine Neg (Neg); Barbiturates, Urine Neg (Neg); Benzodiazepine, Urine Neg (Neg); Cocaine, Urine Neg (Neg); MDMA (Ecstacy), Urine Neg (Neg); Methadone, Urine Neg (Neg); Opiate, Urine Pos (Neg); Phencyclidine, Urine Neg (Neg)
[2019-03-20 00:12] LABS: WBC Urine Automated >30 /hpf (0-5)
[2019-03-20 00:13] LABS: Bacteria Urine Automated 1+ (Negative); Cast Urine Automated 0 /lpf (0-5)
[2019-03-20 00:19] LABS: Basophils # (auto) 0.01 K/uL (0-0.2); Basophils % (auto) 0.1 %; Hematocrit (blood only) 33.6 % (42-52); Hemoglobin 10.5 g/dL (14.0-18.0); Immature Granulocytes # (auto) 0.02 K/uL (0.00-0.02); Immature Granulocytes % (auto) 0.2 %; Lymphocytes # (auto) 0.69 K/uL (1.2-3.4); Lymphocytes % (auto) 6.8 %; Mean Corpuscular Hgb Conc 31.3 g/dL (32-36); Mean Corpuscular Volume 76.5 fL (80-100); Mean Platelet Volume 10.4 fL (7.4-10.4); Monocytes # (auto) 0.15 K/uL (0.11-0.59); Monocytes % (auto) 1.5 %; Neutrophils # (auto) 9.28 K/uL (1.4-6.5); Neutrophils % (auto) 91.4 %; Platelet Count 246 K/uL (130-400); RDW Coefficient of Variation 17.3 % (11.5-14.5); RDW Standard Deviation 48.8 fL (36.4-46.3); Red Blood Count 4.39 M/uL (4.7-6.1); White Blood Count 10.15 K/uL (4.8-10.8)
[2019-03-20 00:42] LABS: Alanine Aminotransferase 26 U/L (12-78); Albumin Level 2.8 gm/dl (3.4-5.0); BUN Creatinine Ratio 9.4 (10-20); Blood Urea Nitrogen 10 mg/dl (7-18); Calcium 9.3 mg/dl (8.5-10.1); Carbon Dioxide 24 mmol/L (21-32); Chloride 106 mmol/L (98-107); Est GFR (African American) 96.8; Est GFR (Non-African American) 83.5; Glucose 221 mg/dl (70-99); Sodium 137 mmol/L (136-145)
[2019-03-20 00:47] LABS: Albumin Globulin Ratio 0.7 (0.9-2); Alkaline Phosphatase 107 U/L (45-117); Bilirubin,Total 0.4 mg/dl (0.2-1); Globulin 3.9 gm/dl (2.5-4.0); NT Pro B Type Natriuretic Pept 66 pg/ml (0-450); Total Protein 6.7 gm/dl (6.4-8.2); Troponin I < 0.015 ng/ml (0-0.045)
[2019-03-20 01:02] LABS: T4 Free Thyroxine 1.02 ng/dl (0.8-1.6)
[2019-03-20] MEDS ORDERED: PIPERACILL/TAZOBAC CONSULT ACTIVE PRN ×2 (01:03→03:16)
[2019-03-20] MEDS ORDERED: PIPERACILLIN/TAZOBACTAM 4.5 GM/120 ML BAG IV ONE (01:03)
[2019-03-20 01:45] LABS: Potassium 4.4 mmol/L (3.5-5.1)
[2019-03-20 01:51] LABS: Magnesium 1.8 mg/dl (1.8-2.4)
[2019-03-20 02:00] LABS: Partial Thromboplastin Ratio 1.8; Prothrombin Time > 90.0 Seconds (9.0-12.0)
[2019-03-20 02:06] LABS: INR > 10.4 (0.9-1.1)
[2019-03-20 02:07] LABS: Partial Thromboplastin Time 47.8 Seconds (21.0-31.0)
[2019-03-20] MEDS ORDERED: PHYTONADIONE 5 MG in SODIUM CHLORIDE 0.9% 50 ML IV ONE (02:08)
[2019-03-20] MEDS ORDERED: HYDROmorphone INJ 1 MG/ML SYRINGE IV STA ×2 (02:13→21:43)
[2019-03-20] MEDS ORDERED: POLYETHYLENE (MIRALAX) 17 GM PACK PO PRN (03:16)
[2019-03-20] MEDS ORDERED: NYSTATIN POWDER 15GM BTL EXT PRN (03:16)
[2019-03-20] MEDS ORDERED: ONDANSETRON 4 MG OD TAB PO PRN (03:16)
[2019-03-20] MEDS ORDERED: NITROGLYCERIN SL 0.4 MG/TAB TAB SL PRN ×2 (03:16)
[2019-03-20] MEDS ORDERED: SOD PHOSPHATE/SOD BIPHOSPHATE ENEMA 132 ML BTL PR PRN (03:16)
[2019-03-20] MEDS ORDERED: ALBUT/IPRATROP 3MG/0.5MG NEB 3 ML VIAL INH PRN (03:16)
[2019-03-20] MEDS ORDERED: ACETAMINOPHEN 325 MG TAB PO PRN (03:16)
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
[2019-03-20] MEDS: OXYCODONE HCL IR 5 MG TAB (IMMEDIATE RELEASE) PO PRN ×2 (04:15→12:51)
--- NOTE | 2019-03-20 05:24 | History and Physical Report ---
DATE OF ADMISSION: 03/20/2019 CHIEF COMPLAINT: Hematuria, weight gain. HISTORY OF PRESENT ILLNESS: This is a 48-year-old male with past medical history significant for chronic diastolic CHF; pulmonary embolism, on Coumadin; hypertension; morbid obesity; COPD; ongoing tobacco abuse; depression; anxiety; migraines; history of recurrent admissions for CHF; and chronic pain. Recently also had ESBL UTI treated with Invanz for 4-5 days, history of BPH on Lloyd. Supposed to see urology for voiding trial. Recently was in the hospital for diastolic CHF treated with IV Lasix and discharged on torsemide 20 mg p.o. b.i.d. on 03/09/2019. Next day, he was in the ER with hematuria that resolved in the ER and discharged home. Comes back because he started having hematuria on Wednesday evening 6:00 p.m. and he is also having this chronic abdominal pain but says this worse today and chronic chest pain. Also has this chronic back pain, having headaches. He is getting short of breath. He said he gained 13 pounds in the last 1 day, so he came to the ER. He says he is taking his Coumadin regularly. His recent Coumadin level on 03/09/2019 was 5. He is taking 7.5 mg of Coumadin currently. Denies any blood in stools or black stools. Appetite is okay. No dysphagia. Has cough, no phlegm. Gets short of breath easily, not ambulating much because of shortness of breath and chronic back pain. No blurred visions. No sore throat. Currently, the patient is somewhat tachycardic. Lactic acid level of 2.8. He said he has low-grade fevers the last couple of days. He is agreeing to go to rehabilitation. ALLERGIES: DEPAKOTE, FENTANYL, AND TYLENOL. PAST MEDICAL HISTORY: As mentioned above. PAST SURGICAL HISTORY: Colonoscopy with biopsy, EUS, repair of left extensor tendons, simple repair of the scalp and neck, etc. MEDICATIONS: The patient is on albuterol 2 puffs every 4 hours p.r.n., aspirin 81 mg p.o. daily, cyclobenzaprine 10 mg p.o. b.i.d., Colace 100 mg p.o. b.i.d., duloxetine 60 mg p.o. a.m., finasteride 5 mg p.o. a.m., Fleet's enema p.r.n., Flonase 2 sprays intranasally a.m., gabapentin 300 mg p.o. t.i.d., hydroxyzine 25 mg p.o. q.i.d. p.r.n., DuoNebs every 4 hours p.r.n., isosorbide dinitrate 10 mg p.o. b.i.d., Ativan 1 mg p.o. t.i.d. p.r.n., magnesium oxide 400 mg p.o. a.m., metoprolol succinate 25 mg p.o. b.i.d., MS Contin 50 mg p.o. q. 12 hours, nitroglycerin 0.4 mg sublingual p.r.n., nystatin 1 application topically b.i.d. p.r.n., omeprazole 20 mg p.o. q.a.m., Zofran 4 mg p.o. q. 4 hours p.r.n., oxycodone 15 mg p.o. q. 4 hours p.r.n., MiraLax 17 grams p.o. 24 hours p.r.n., potassium chloride 10 mEq p.o. b.i.d., Spiriva inhaler 1 puff inhalation daily, spironolactone 50 mg p.o. b.i.d., Flomax 0.4 mg p.o. daily, torsemide 20 mg p.o. b.i.d., tramadol 50 mg p.o. q. 4 hours p.r.n., Coumadin 7.5 mg p.o. q.p.m. FAMILY HISTORY: Significant for sister has breast cancer. Mother has musculoskeletal disorder. Maternal grandfather has heart disorder. Paternal grandfather has lung disorder. Maternal grandmother has heart disorder. SOCIAL HISTORY: Lives with his grandkids and . Smoking about a pack a day. No alcohol history. Prescription narcotic pain medication dependence. REVIEW OF SYMPTOMS: As per HPI. Rest of the review of systems negative. PHYSICAL EXAMINATION: GENERAL: The patient is morbidly obese, not in acute distress. VITAL SIGNS: Temperature 36.5, pulse 113, respiratory rate 17, blood pressure 118/75, oxygen 98% on room air. HEENT: No pallor, no icterus. Pupils equal, round, and reactive to light. NECK: No JVD, no neck masses, no carotid bruits. CARDIOVASCULAR: S1, S2 heard. Tachycardia. No murmurs. RESPIRATORY SYSTEM: Normal AP diameter. No accessory muscle use. Mild expiratory wheezing present. No crackles heard. ABDOMEN: Soft, bowel sounds present. Tenderness in the right lower quadrant. No guarding, no rigidity, no distention. CENTRAL NERVOUS SYSTEM: Cranial nerves II-XII grossly intact, nonfocal. EXTREMITIES: Bilateral lower extremity gross edema present . B/l lower extremity mild erythema. LABORATORY DATA: WBC 10.15, hemoglobin 10.5, hematocrit 33.6, platelets 246. PT greater than 90, INR greater than 10.4. Sodium 137, potassium 4.4, chloride 106, bicarb 24, BUN 10, creatinine 1.05. Serum glucose 221. Lactate 2.8, calcium 9.3, magnesium 1.8, total bilirubin 0.4, AST 10, ALT 26, alkaline phosphatase 107, troponin I less than 0.015. BNP 66. Lipase 54. Procalcitonin less than 0.015. TSH 0.2, free T4 1.02. Urinalysis cloudy, negative for nitrate or leukocyte esterase. Urine drug screen positive for opiates. IMAGING DATA: Chest x-ray: No acute findings.(my reading) EKG: Sinus tachycardia at a rate of 128, nonspecific ST abnormalities, no significant change was found. ASSESSMENT AND PLAN: This is a 48-year-old male who presents with hematuria and found to have supratherapeutic INR and also congestive heart failure. 1. Hematuria. Has benign prostatic hyperplasia, chronic indwelling catheter. Supposed to see urology for voiding trial. His hematuria could be mostly from supratherapeutic INR, INR is greater than 10.4. We will give IV vitamin K 5 mg. Hemoglobin is 10.5. We will follow the labs in a.m. Consult urology for further recommendations. 2. [id number] diastolic congestive heart failure. Recently was treated with IV Lasix 40 b.i.d. Discharged him on torsemide 20 mg p.o. b.i.d. Will continue his Aldactone 50 mg b.i.d. Holding the torsemide and potassium supplements for now because of mild elevation of lactic acid. When lactic acid improves, we will place him on IV Lasix 40 b.i.d. Closely monitor on tele floor. Currently hemodynamically stable. Consult cardiology for further recommendations. 3. Elevated lactic acid. Urinalysis, no obvious source of infection. We will follow the blood culture, urine cultures.Has cough. Empirically start on IV Zosyn. Follow the repeat lactic acid. 4. Chronic obstructive pulmonary disease. The patient has some mild expiratory wheezing, probably chronic wheezing, still smokes. We will hold on steroids for now. Continue home inhalers and nebs and monitor. 5. History of pulmonary embolism. INR is supratherapeutic. Given vitamin K. If he still continues to have hematuria, may need IVC filter. Had PE within the last 6 months. 6. Chest pain is chronic, we will monitor. 7. has chronic back pain. Follows with pain management. Continue home narcotic prescriptions, will monitor. 8. Depression and anxiety. Continue current home medications. 9. Benign prostatic hypertrophy, on Flomax and Proscar and Lloyd catheter. Consult urology for his hematuria. 10. Abdominal pain. Patient's last month CAT scan showed some kidney stone. Having hematuria. We will get a CT scan of the abdomen and pelvis. 11. History of hypertension, On metoprolol and isosorbide. We will monitor the blood pressure. 12. Deep venous thrombosis prophylaxis, INR is supratherapeutic. DISPOSITION: Admit to tele. Level 1 full code. PT/OT prior to discharge. The patient is to go to rehabilitation. Social service to help with discharge planning. [place]
--- NOTE | 2019-03-20 06:21 | XRay Report ---
XR chest 1V portable CLINICAL HISTORY: SOB is him COMPARISON STUDY: 03/03/2019 FINDINGS: Mild cardiomegaly. Lungs are considered generally clear. Small parenchymal infiltrate right upper lobe. This was followed to complete resolution. IMPRESSION: 1. Small parenchymal infiltrate right upper lobe 2. Mild cardiomegaly. 3. This study should be repeated later date to ensure complete resolution. The above report was generated using voice recognition software. It may contain grammatical, syntax or spelling errors. Electronically signed by: Owen Flowers M.D. 03/20/2019 6:19 AM
[2019-03-20] MEDS: TRAMADOL HCL 50 MG TABLET PO PRN ×2 (06:59→11:03)
[2019-03-20] MEDS: ISOSORBIDE DINITRATE 10 MG TAB PO SCH ×2 (07:00→12:48)
[2019-03-20 07:02] LABS: Basophils # (auto) 0.01 K/uL (0-0.2); Basophils % (auto) 0.1 %; Hematocrit (blood only) 32.3 % (42-52); Hemoglobin 10.2 g/dL (14.0-18.0); Immature Granulocytes # (auto) 0.01 K/uL (0.00-0.02); Immature Granulocytes % (auto) 0.1 %; Lymphocytes # (auto) 1.08 K/uL (1.2-3.4); Lymphocytes % (auto) 10.6 %; Mean Corpuscular Hgb Conc 31.6 g/dL (32-36); Mean Corpuscular Volume 76.7 fL (80-100); Mean Platelet Volume 9.9 fL (7.4-10.4); Monocytes # (auto) 1.02 K/uL (0.11-0.59); Neutrophils # (auto) 8.03 K/uL (1.4-6.5); Neutrophils % (auto) 79.2 %; Platelet Count 226 K/uL (130-400); RDW Coefficient of Variation 17.4 % (11.5-14.5); Red Blood Count 4.21 M/uL (4.7-6.1); White Blood Count 10.15 K/uL (4.8-10.8)
[2019-03-20 07:20] LABS: Prothrombin Time 62.8 Seconds (9.0-12.0)
[2019-03-20] MEDS: ONDANSETRON INJ 2 MG/ML 2 ML VIAL IV PRN ×2 (07:24→13:10)
[2019-03-20 07:29] LABS: BUN Creatinine Ratio 12.1 (10-20); Calcium 9.3 mg/dl (8.5-10.1); Creatinine Clr Calc Pharmacy 166.1 ml/min; Est GFR (African American) 102.7; Est GFR (Non-African American) 88.6; Potassium 4.3 mmol/L (3.5-5.1)
--- NOTE | 2019-03-20 08:01 | CT Scan Report ---
ABDOMEN AND PELVIS CT WITHOUT CONTRAST CT DOSE: 2282.66 mGy.cm HISTORY: abdominal pain RLQ. hx of kidney stones TECHNIQUE: Multiaxial CT images of the abdomen and pelvis were performed without contrast. A dose lo wering technique was utilized adhering to the principles of ALARA. COMPARISON STUDY: Abdomen and pelvis CT 01/29/2019. FINDINGS: A few small bibasilar linear densities favor scarring or atelectasis. No pneumoperitoneum. No pneumatosis. Old mild superior endplate compression deformity at L1. Mild hepatic steatosis. The u nenhanced spleen, adrenal glands, and pancreas are unremarkable. No ureteral stones. No hydronephrosi s. The bladder is decompressed by a Lloyd catheter. Lower anterior abdominal wall skin thickening and subcutaneous fat stranding. Tiny fat-containing umbilical hernia. There is a 4 mm calcification with in the right kidney, unchanged. No left renal calculi. No retroperitoneal lymphadenopathy. Suboptimal evaluation for bowel pathology due to the lack of intravenous and oral contrast. However, there is n o definite bowel wall thickening or obstruction. The appendix is surgically absent. A few colonic div erticula. No evidence for diverticulitis. The gallbladder is decompressed. IMPRESSION: 1. Stable right-sided nephrolithiasis. No ureteral stones. No hydronephrosis. 2. No definite bowel wall thickening or obstruction. 3. Additional stable findings as described above. Electronically signed by: Vidal Keller M.D. 03/20/2019 8:00 AM
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
[2019-03-20 08:19] LABS: INR 7.1 (0.9-1.1)
[2019-03-20] MEDS: MoRPHine SULFATE CR 15 MG TABCR PO SCH ×2 (08:52→21:08)
[2019-03-20] MEDS: METOPROLOL SUCC 25MG EXT REL TAB PO SCH ×2 (08:53→22:28)
[2019-03-20] MEDS: DOCUSATE SODIUM 100 MG CAP PO SCH ×2 (08:53→21:10)
[2019-03-20] MEDS: SPIRONOLACTONE 25 MG TAB PO SCH ×2 (08:53→21:09)
[2019-03-20] MEDS: TAMSULOSIN HCL 0.4 MG CAP PO SCH (08:54)
[2019-03-20] MEDS: FINASTERIDE 5 MG TAB PO SCH (08:54)
[2019-03-20] MEDS: MAGNESIUM OXIDE 400 MG TAB PO SCH (08:54)
[2019-03-20] MEDS: CYCLOBENZAPRINE HCL 10 MG TAB PO SCH ×2 (08:54→21:09)
[2019-03-20] MEDS: GABAPENTIN 300 MG CAP PO SCH ×3 (08:55→22:28)
[2019-03-20] MEDS: DULOXETINE HCL 60 MG CAP PO SCH (08:55)
[2019-03-20] MEDS: FLUTICASONE PROPIONATE NA SPR 16 GM BTL SCH (08:56)
[2019-03-20] MEDS: PIPERACILLIN/TAZOBACTAM 4.5 GM in DEXTROSE 5% 100 ML IV SCH ×2 (08:58→16:24)
[2019-03-20] MEDS: TIOTROPIUM BROMIDE 5 PUFF/90 MCG INH INH SCH (08:58)
[2019-03-20] MEDS ORDERED: PANTOprazole 40 MG TAB PO SCH (09:00)
[2019-03-20] MEDS: HYDROmorphone INJ 1 MG/ML SYRINGE IV PRN ×2 (09:32→19:17)
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
[2019-03-20] MEDS: FUROSEMIDE 40 MG in SYRINGE 0 ML IV SCH ×2 (10:52→16:54)
--- NOTE | 2019-03-20 11:13 | Hospitalist Progress Note ---
Date of Service March 20, 2019 Assessment & Plan (1) Acute on chronic diastolic congestive heart failure, NYHA class 3: Volume overload felt to be secondary to right heart failure, obesity hypoventilation syndrome, noncompliance. We will continue IV furosemide at 40 mg BID to start with. Restrict sodium and fluids, restricting sodium to 1500 mg/day and fluids to less than 2000 mL/day Strict I's and O's Appreciate cardiology input and recommendation Monitor PRP Present on Admission?: Yes (2) Hematuria: Has had hematuria today after he was discharged from the hospital last time Has indwelling Lloyd catheter due to prostatic hypertrophy Came back again yesterday with ongoing hematuria Likely secondary to trauma and is complicated by supratherapeutic INR Appreciate urology input and recommendation Hematuria seems to be clearing up Present on Admission?: Yes (3) Indwelling Lloyd catheter present: As above History of ESBL UTI Will await urine culture and sensitivity (4) Chronic back pain: Has been on chronic pain medications with MS contin and oxycodone He will not be given any prescription of narcotics on discharge He has been getting Dilaudid 1 mg twice daily for increasing back pain He will not be given corresponding dose of oxycodone when he receives IV Dilaudi d (5) Atypical chest pain: Complains to have chest pain Has had chest pain before without any evidence of ACS Serial cardiac enzymes have been negative Doubt any ACS this time (6) Elevated lactic acid level: His lactic acid was mildly elevated on admission UA did not look like an infection and chest x-ray did show possible right upper lobe infiltration Urine and blood cultures have been sent Started on Zosyn and will continue for now Doubt any sepsis for now (7) Pulmonary embolism: History of pulmonary embolism on Coumadin Recurrent admission with supratherapeutic INR INR was more than 10 on admission Received vitamin K and the INR is down to around 7 this morning We will monitor INR (8) Morbid obesity: Limited physical activity due to obesity We will continue PT and OT evaluation and follow the recommendation (9) COPD (chronic obstructive pulmonary disease): Has more shortness of breath Does not have any COPD exacerbation (10) Depression with anxiety: Seems to be stable Continue current medications Subjective 03/20 Patient was seen and examined in the telemetry unit This is a 48-year-old male with past medical history significant for chronic diastolic CHF; pulmonary embolism, on Coumadin; hypertension; morbid obesity; COPD; ongoing tobacco abuse; depression; anxiety; migraines; history of recurrent admissions for CHF; and chronic pain. Recently also had ESBL UTI treated with Invanz for 4-5 days, history of BPH on Lloyd.admitted with hematuria and fluid overload with associated shortness of breath. He complains to have increasing back pain since manipulation of his right lower extremity last night Complaint shortness of breath without any desaturation Hematuria seems to be improving Review of Systems Review of Systems: All systems reviewed and are unremarkable except as noted below Constitutional: + weakness, + weight gain and + problem reported (Increasing pain the lower back) Respiratory: + dyspnea (At rest without any desaturation) Cardiovascular: no chest pain Gastrointestinal: Complains right lower quadrant pain. CT of the abdomen&pelvis have been negative except nephrolithiasis as before Genitourinary: + hematuria Musculoskeletal: Increasing pain in the lower back with radiation to right leg Neurologic: + generalized weakness Physical Exam Physical Exam: No apparent distress at rest Constitutional: well developed, well nourished, + ill appearing and + morbidly obese Eyes: PERRL, conjunctivae normal, anicteric sclerae ENMT: external ear and nose normal, oropharynx normal Neck: trachea midline, no thyromegaly Respiratory: + respiratory distress (Minimal distress at rest) Auscultation: + diminished lung sounds and + crackles (Bibasilar crackles) Cardiovascular: Rate/Rhythm: regular rate and regular rhythm Extremities: + edema (1-2+ bilaterally and chronic) Gastrointestinal (Abdomen): Inspection/Auscultation: + abdomen distended Percussion/Palpation: abdomen soft; abdomen nontender Musculoskeletal: No acute arthritis in any of the joints Neurologic: moves all extremities Psychiatric: A+Ox3, euthymic affect Genitourinary: no CVA tenderness Has indwelling Lloyd catheter Lymphatic: no cervical or axillary lymphadenopathy Results & Data Vital Signs (Past 12 Hours) Vital Signs Temp Pulse Pulse Resp BP BP Pulse Ox 03/20/19 07:34 36.6 C 106 H 18 104/70 92 03/20/19 03:15 117 H 03/20/19 03:08 36.8 C 117 H 22 152/79 H 94 03/20/19 02:34 113 H 17 118/75 90 03/20/19 02:05 113 H 17 118/75 90 03/20/19 00:22 120 H 25 H 127/91 90 03/19/19 23:28 91 Laboratory Results Short CBC 03/19/19 03/20/19 Range/Units 23:59 06:51 WBC 10.15 10.15 (4.8-10.8) K/uL Hgb 10.5 L 10.2 L (14.0-18.0) g/dL Hct 33.6 L 32.3 L (42-52) % Plt Count 246 226 (130-400) K/uL BMP 03/19/19 03/20/19 03/20/19 23:59 01:04 06:51 Sodium 137 137 Potassium 4.4 4.3 Chloride 106 106 Carbon Dioxide 24 27 BUN 10 12 Creatinine 1.05 1.00 Glucose 221 H 244 H Calcium 9.3 9.3 Cardiac Enzymes 03/19/19 Range/Units 23:59 Troponin I < 0.015 (0-0.045) ng/ml Liver Function 03/19/19 03/20/19 Range/Units 23:59 01:04 Total Bilirubin 0.4 (0.2-1) mg/dl AST 10 L (15-37) U/L ALT 26 (12-78) U/L Alkaline Phosphatase 107 (45-117) U/L Albumin 2.8 L (3.4-5.0) gm/dl Urine 03/19/19 Range/Units 23:26 Urine Color Red Urine Appearance Cloudy A (Clear) Urine pH 5.5 (4.5-7.5) Ur Specific [place] 1.029 (1.000-1.030) Urine Protein 2+ H (Negative) Urine Glucose (UA) Trace H (Negative) Diagnostic Findings CT of the abdomen&pelvis have been negative except nephrolithiasis as before Medications Administered Current Inpatient Medications Acetaminophen (Tylenol) 650 mg PO Q4H PRN PRN Reason: Pain or Fever Stop: 04/19/19 03:15 Albuterol (Duoneb) 3 ml INH Q4H PRN PRN Reason: Shortness Of Breath Or Wheezing Stop: 04/19/19 03:15 Albuterol (Ventolin Hfa) 2 puffs INH Q4H PRN PRN Reason: Wheezing Stop: 04/19/19 03:15 Cyclobenzaprine HCl (Flexeril) 10 mg PO BID EMPERATRIZ Stop: 04/19/19 08:59 Last Admin: 03/20/19 08:54 Dose: 10 mg Documented by: Docusate Sodium (Colace) 100 mg PO BID [facility] Stop: 04/19/19 08:59 Last Admin: 03/20/19 08:53 Dose: 100 mg Documented by: [facility]ox[facility] ([facility]ymbalta) [facility] Stop: 04/19/19 08:59 Last Admin: 03/20/19 08:55 Dose: 60 mg Documented by: Finasteride (Proscar) 5 mg PO QAM [facility] Stop: 04/19/19 08:59 Last Admin: 03/20/19 08:54 Dose: 5 mg Documented by: Fluticasone Propionate (Flonase) 2 sprays NA [facility] Stop: 04/19/19 08:59 Last Admin: 03/20/19 08:56 Dose: 2 sprays Documented by: Gabapentin (Neurontin) 300 mg PO TID [facility] Stop: 04/19/19 08:59 Last Admin: 03/20/19 08:55 Dose: 300 mg Documented by: Hydromorphone HCl (Dilaudid) 1 mg IV UD PRN PRN Reason: Pain Stop: 04/03/19 09:13 Last Admin: 03/20/19 09:32 Dose: 1 mg Documented by: Hydroxyzine HCl (Vistaril) 25 mg PO QID PRN PRN Reason: Anxiety Stop: 04/19/19 03:15 Piperacillin Sod/Tazobactam (Sod 4.5 gm/ Dextrose) 120 mls @ 30 mls/hr IV Q8H [facility]; Protocol Stop: 03/30/19 07:59 Last Admin: 03/20/19 08:58 Dose: 30 mls/hr Documented by: Furosemide 40 mg/ Syringe 4 mls @ 4 mls/min IV BID17 [facility] Stop: 04/19/19 10:44 Last Admin: 03/20/19 10:52 Dose: 4 mls/min Documented by: Isosorbide Dinitrate (Isordil) 10 mg PO BID@0700,1200 [facility] Stop: 04/19/19 06:59 Last Admin: 03/20/19 07:00 Dose: 10 mg Documented by: Lorazepam (Ativan) 1 mg PO TID PRN PRN Reason: Anxiety Stop: 04/19/19 03:15 Magnesium Oxide (Mag-Ox) 400 mg PO QAM [facility] Stop: 04/19/19 08:59 Last Admin: 03/20/19 08:54 Dose: 400 mg Documented by: Metoprolol Succinate (Toprol Xl) 25 mg PO BID [facility] Stop: 04/19/19 08:59 Last Admin: 03/20/19 08:53 Dose: 25 mg Documented by: Miscellaneous Information (Consult) 1 ea N/A UD PRN PRN Reason: Consult Stop: 04/19/19 03:15 Morphine Sulfate (Ms Contin) 15 mg PO Q12H [facility] Stop: 04/03/19 08:59 Last Admin: 03/20/19 08:52 Dose: 15 mg Documented by: Nitroglycerin (Nitrostat) 0.4 mg SL UD PRN PRN Reason: Chest Pain Stop: 04/19/19 03:15 Nystatin (Mycostatin) 1 appln EXT BID PRN PRN Reason: Rash Stop: 04/19/19 03:15 Ondansetron HCl (Zofran) 4 mg IV Q6H PRN PRN Reason: Nausea Stop: 04/19/19 03:15 Last Admin: 03/20/19 07:24 Dose: 4 mg Documented by: Ondansetron HCl (Zofran Odt) 4 mg PO Q4H PRN PRN Reason: Nausea And Vomiting Stop: 04/19/19 03:15 Oxycodone HCl (Roxicodone Immediate Rel) 15 mg PO Q4H PRN PRN Reason: Breakthrough Pain Stop: 04/03/19 03:15 Last Admin: 03/20/19 04:15 Dose: 15 mg Documented by: Pantoprazole Sodium (Protonix) 40 mg PO QAM [facility] Stop: 04/19/19 08:59 Last Admin: 03/20/19 08:55 Dose: 40 mg Documented by: Polyethylene Glycol (Miralax Powder Packet) 17 gm PO DAILY PRN PRN Reason: Constipation Stop: 04/19/19 03:15 Sodium Biphosphate/Sodium Phosphate (Fleet Enema) 133 ml TN DAILY PRN PRN Reason: Constipation Stop: 04/19/19 03:15 Spironolactone (Aldactone) 50 mg PO BID [facility] Stop: 04/19/19 08:59 Last Admin: 03/20/19 08:53 Dose: 50 mg Documented by: Tamsulosin HCl (Flomax) 0.4 mg PO DAILY EMPERATRIZ Stop: 04/19/19 08:59 Last Admin: 03/20/19 08:54 Dose: 0.4 mg Documented by: Tiotropium [place] (Spiriva) 1 puffs INH DAILY EMPERATRIZ Stop: 04/19/19 08:59 Last Admin: 03/20/19 08:58 Dose: 1 puffs Documented by: Tramadol HCl (Ultram) 50 mg PO Q4H PRN PRN Reason: Pain Stop: 04/19/19 03:15 Last Admin: 03/20/19 06:59 Dose: 50 mg Documented by: (1) Hematuria Hematuria type: unspecified type Qualified Code(s): R31.9 - Hematuria, unspecified (2) Pulmonary embolism Pulmonary embolism type: unspecified Chronicity: chronic Acute cor pulmonale presence: without acute cor pulmonale Qualified Code(s): I27.82 - Chronic pulmonary embolism (3) COPD (chronic obstructive pulmonary disease) COPD type: emphysema Emphysema type: unspecified Qualified Code(s): J43.9 - Emphysema, unspecified
[2019-03-20] MEDS: POLYETHYLENE (MIRALAX) 17 GM PACK PO PRN (12:48)
[2019-03-20 13:21] LABS: Hematocrit (blood only) 34.1 % (42-52)
[2019-03-20] MEDS: PROMETHAZINE HCL 25 MG in SODIUM CHLORIDE 0.9% 50 ML IV PRN (16:53)
[2019-03-20] MEDS: INSULIN ASPART 100 UNITS/ML 3 ML PEN SC SCH ×2 (17:31→21:37)
[2019-03-20] MEDS ORDERED: ALUMINUM/MAGNESIUM/SIMETH (MAALOX MAX) 30 ML UDC PO STA (17:34)
[2019-03-20 19:02] LABS: Hematocrit (blood only) 34.8 % (42-52); Hemoglobin 11.1 g/dL (14.0-18.0)
[2019-03-20] MEDS: PANTOprazole 40 MG TAB PO SCH (22:28)
--- NOTE | 2019-03-20 23:31 | XRay Report ---
KUB CLINICAL HISTORY: Nausea and vomiting. COMPARISON STUDY: CT of the abdomen and pelvis performed earlier today. FINDINGS: A 3 mm right renal calculus is noted. There are few loops of mildly dilated small bowel wit hin the left mid abdomen. A moderate amount of stool within the colon is noted. IMPRESSION: 1. Interval development of mild small bowel dilatation which may reflect an ileus or partial small tereso wel obstruction. 2. 3 mm right renal calculus. Electronically signed by: Evelio Corbin M.D. 03/20/2019 11:30 PM
[2019-03-21] MEDS: PIPERACILLIN/TAZOBACTAM 4.5 GM in DEXTROSE 5% 100 ML IV SCH ×3 (00:19→16:37)
[2019-03-21] MEDS ORDERED: HYDROmorphone INJ 0.5 MG/0.5 ML SYR IV STA ×2 (00:26→04:18)
[2019-03-21] MEDS: ISOSORBIDE DINITRATE 10 MG TAB PO SCH ×2 (05:33→12:07)
[2019-03-21] MEDS: OXYCODONE HCL IR 5 MG TAB (IMMEDIATE RELEASE) PO PRN ×3 (05:33→19:10)
[2019-03-21 06:04] LABS: INR 4.3 (0.9-1.1); Prothrombin Time 39.5 Seconds (9.0-12.0)
[2019-03-21 06:19] LABS: BUN Creatinine Ratio 12.9 (10-20); Calcium 8.8 mg/dl (8.5-10.1); Creatinine Clr Calc Pharmacy 149.6 ml/min; Est GFR (African American) 90.5; Est GFR (Non-African American) 78.1; Potassium 3.6 mmol/L (3.5-5.1)
[2019-03-21] MEDS: INSULIN ASPART 100 UNITS/ML 3 ML PEN SC SCH ×4 (08:18→21:00)
[2019-03-21] MEDS: FUROSEMIDE 40 MG in SYRINGE 0 ML IV SCH ×2 (08:33→18:06)
[2019-03-21] MEDS: MoRPHine SULFATE CR 15 MG TABCR PO SCH ×2 (08:33→20:55)
[2019-03-21] MEDS: GABAPENTIN 300 MG CAP PO SCH ×3 (08:34→20:56)
[2019-03-21] MEDS: DOCUSATE SODIUM 100 MG CAP PO SCH ×2 (08:34→20:55)
[2019-03-21] MEDS: CYCLOBENZAPRINE HCL 10 MG TAB PO SCH ×2 (08:34→20:57)
[2019-03-21] MEDS: DULOXETINE HCL 60 MG CAP PO SCH (08:34)
[2019-03-21] MEDS: TAMSULOSIN HCL 0.4 MG CAP PO SCH (08:35)
[2019-03-21] MEDS: PANTOprazole 40 MG TAB PO SCH ×2 (08:35→20:57)
[2019-03-21] MEDS: METOPROLOL SUCC 25MG EXT REL TAB PO SCH ×2 (08:35→20:56)
[2019-03-21] MEDS: FINASTERIDE 5 MG TAB PO SCH (08:36)
[2019-03-21] MEDS: SPIRONOLACTONE 25 MG TAB PO SCH ×2 (08:36→20:58)
[2019-03-21] MEDS: MAGNESIUM OXIDE 400 MG TAB PO SCH (08:36)
[2019-03-21] MEDS: HYDROmorphone INJ 1 MG/ML SYRINGE IV PRN ×2 (08:37→16:42)
[2019-03-21] MEDS: ONDANSETRON INJ 2 MG/ML 2 ML VIAL IV PRN ×2 (08:37→16:42)
[2019-03-21] MEDS: TIOTROPIUM BROMIDE 5 PUFF/90 MCG INH INH SCH (08:46)
[2019-03-21] MEDS: FLUTICASONE PROPIONATE NA SPR 16 GM BTL SCH (08:46)
--- NOTE | 2019-03-21 09:03 | Cardiology Progress Note ---
Date of Service March 21, 2019 Assessment & Plan (1) Right heart failure: Volume overload felt to be secondary to right heart failure, obesity hypoventilation syndrome, noncompliance. Continue IV furosemide at 40 mg BID Continue spironolactone Supplement potassium today. Continue to restrict sodium and fluids, restricting sodium to 1500 mg/day and fluids to less than 2000 mL/day Strict I's and O's Lloyd catheter in place Daily metabolic panels. (2) Atypical chest pain: Stable Troponin negative EKG without acute change (3) Supratherapeutic INR: Anticoagulation prescribed due to a PE in September 2018. INR greater than 10.4 on presentation, receiving 5 mg vitamin K on admission. INR 4.3 today. H&H stable Continue to hold Coumadin. Note: He is not a good candidate for Lovenox due to morbid obesity. As per Hospitalist Service (4) Tachycardia: Sinus/sinus tachycardia on continuous telemetry. No atrial or ventricular arrhythmias observed. (5) Tobacco abuse: Cessation advised Supervising Physician Co-Signing Physician Notes Patient seen and examined with Owen Saavedra PA-C. Agree with findings and assessment as above. Pt remains profoundly volume overloaded, will cont with IV diuresis. Subjective Patient seen and examined. Chart, medications, and telemetry reviewed. + Diffuse pain, chronic. + Wheezing. + Abdominal bloating. + Peripheral edema. + Nausea and vomiting yesterday. No emesis today. Last bowel movement was on Wednesday. + Lloyd catheter. No new or worsening chest pain. No palpitations. Stable dyspnea with any activity. I/O's are negative 5,512.5 mL's overall. Weight was not obtained today. Patient remains hypervolemic. Review of Systems Review of Systems: All systems reviewed & are unremarkable except as noted in HPI & below Physical Exam Physical Exam: General: A&Ox3. NAD. Obese HEENT: Normocephalic. Atraumatic. PER. Conjunctiva pink, sclera clear. Neck: No carotid bruits. No overt JVD. Neck is quite thick. Heart: Distant heart sounds. RRR, 88 bpm. I could not appreciate a murmur. No rub heard. Lungs: Diffuse expiratory wheezing. Abdomen: +BS. Soft. Nontender. No masses or organomegaly. Extremities: 2+ edema. No clubbing. No cyanosis. Limited neurological examination is without focal deficits. Pulses: radial=2/4, posterior tibial=0/4. Results & Data Vital Signs (Past 12 Hours) Vital Signs Temp Pulse Pulse Resp BP Pulse Ox 03/21/19 07:35 36.6 C 90 16 124/81 92 03/21/19 03:44 36.9 C 93 H 23 113/58 L 92 03/21/19 00:00 98 H 03/20/19 23:30 36.4 C L 100 H 22 124/69 95 Laboratory Results - last 24 hr 03/20/19 03/20/19 03/20/19 13:07 16:46 18:45 Hgb 11.0 L 11.1 L Hct 34.1 L 34.8 L PT INR Sodium Potassium Chloride Carbon Dioxide Anion Gap BUN Creatinine Est Cr Clr Drug Dosing Est GFR ( Amer) Est GFR (Non-Af Amer) BUN/Creatinine Ratio Glucose POC Glucose 140 H Calcium 03/20/19 03/21/19 03/21/19 20:45 05:27 05:27 Hgb Hct PT 39.5 H INR 4.3 H Sodium 140 Potassium 3.6 D Chloride 101 Carbon Dioxide 35 H Anion Gap 5.0 BUN 14 Creatinine 1.11 Est Cr Clr Drug Dosing 149.6 Est GFR ( Amer) 90.5 Est GFR (Non-Af Amer) 78.1 BUN/Creatinine Ratio 12.9 Glucose 138 H POC Glucose 142 H Calcium 8.8 03/21/19 07:33 Hgb Hct PT INR Sodium Potassium Chloride Carbon Dioxide Anion Gap BUN Creatinine Est Cr Clr Drug Dosing Est GFR ( Amer) Est GFR (Non-Af Amer) BUN/Creatinine Ratio Glucose POC Glucose 134 H Calcium
[2019-03-21] MEDS: TRAMADOL HCL 50 MG TABLET PO PRN ×2 (10:04→14:05)
--- NOTE | 2019-03-21 10:07 | Urology Progress Note ---
Date of Service March 21, 2019 Assessment & Plan (1) Hematuria: (2) Indwelling Fontaine catheter present: 48yo M with multiple comorbidities, admitted with CHF exacerbation, gross hematuria. Enterococcus UTI. Possible Ileus. UC&S prelim growing enterococcus, currently on IV zosyn. Recommend treating based upon sensitivities for 10-14 days for complicated UTI. Recommend changing fontaine catheter towards end of abx, course, with 3-4 days left of course. We briefly discussed option for suppressive antibiotics while fontaine catheter in place. He is hesitant to do this given his hx of C.Diff, reasonable. Continue flomax and finasteride. No plans for TOV. Pt does not feel he is able to perform CIC due to body habitus. He plans to transfer to [facility] for rehabilitation, he is hopeful this will improve his compliance with outpatient follow-up. Will arrange for close followup as outpatient. I emphasized importance for keeping followup. Subjective 48yo M with multiple comorbidities, admitted with CHF exacerbation, gross hematuria. Pt states he had a terrible night with nausea and vomiting. States "i threw everything up". Primary service treating for possible ileus, currently NPO status. He states he feels slightly better this AM but still very ill. Abd distended, slightly firm. Mild suprapubic discomfort. Denies chest pain/shortness of breath Fontaine continues to drain yellow, improved clarity from yesterday. UC&S prelim positive for enterococcus - currently on Zosyn IV. INR down to 4.3 today. Review of Systems Review of Systems: All systems reviewed & are unremarkable except as noted in HPI & below Physical Exam Physical Exam: A&Ox3 RRR abd slightly distended, semi firm Fontaine draining clear yellow Results & Data Vital Signs (Past 12 Hours) Vital Signs Temp Pulse Pulse Resp BP Pulse Ox 03/21/19 07:35 36.6 C 90 16 124/81 92 03/21/19 03:44 36.9 C 93 H 23 113/58 L 92 03/21/19 00:00 98 H 03/20/19 23:30 36.4 C L 100 H 22 124/69 95 Laboratory Results Laboratory Results - last 48 hr 03/19/19 03/19/19 03/19/19 23:26 23:26 23:59 WBC 10.15 RBC 4.39 L Hgb 10.5 L Hct 33.6 L MCV 76.5 L MCH 23.9 L MCHC 31.3 L RDW Std Deviation 48.8 H RDW Coeff of Megan 17.3 H Plt Count 246 MPV 10.4 Immature Gran % (Auto) 0.2 Neut % (Auto) 91.4 Lymph % (Auto) 6.8 [place] % (Auto) 1.5 Eos % (Auto) 0.0 Baso % (Auto) 0.1 Immature Gran # (Auto) 0.02 Neut # (Auto) 9.28 H Lymph # (Auto) 0.69 L [place] # (Auto) 0.15 Eos # (Auto) 0.00 Baso # (Auto) 0.01 PT INR APTT PTT Ratio Sodium Potassium Chloride Carbon Dioxide Anion Gap BUN Creatinine Est Cr Clr Drug Dosing Est GFR ( Amer) Est GFR (Non-Af Amer) BUN/Creatinine Ratio Glucose POC Glucose Lactate Calcium Magnesium Total Bilirubin AST ALT Alkaline Phosphatase Troponin I NT-Pro-B Natriuret Pep Total Protein Albumin Globulin Albumin/Globulin Ratio Lipase Procalcitonin TSH Free T4 Urine Color Red Urine Appearance Cloudy A Urine pH 5.5 Ur Specific [place] 1.029 Urine Protein 2+ H Urine Glucose (UA) Trace H Urine Ketones 1+ H Urine Blood 3+ H Urine Nitrite Negative Urine Bilirubin Negative Urine Urobilinogen Negative Ur Leukocyte Esterase Negative Urine WBC (Auto) >30 H Urine RBC (Auto) >30 H U Hyaline Cast (Auto) 0 U Epithel Cells (Auto) 5-10 H Urine Bacteria (Auto) 1+ H Urine Opiates Screen Pos H Ur Methadone, Qual Neg Urine Barbiturates Neg Ur Phencyclidine (PCP) Neg U Amphetamin/Meth Scrn Neg MDMA (Ecstasy) Screen Neg U Benzodiazepines Scrn Neg Ur Cocaine Metabolite Neg U Marijuana (THC) Screen Neg 03/19/19 03/19/19 03/19/19 23:59 23:59 23:59 WBC RBC Hgb Hct MCV MCH MCHC RDW Std Deviation RDW Coeff of Megan Plt Count MPV Immature Gran % (Auto) Neut % (Auto) Lymph % (Auto) [place] % (Auto) Eos % (Auto) Baso % (Auto) Immature Gran # (Auto) Neut # (Auto) Lymph # (Auto) [place] # (Auto) Eos # (Auto) Baso # (Auto) PT Cancelled INR Cancelled APTT Cancelled PTT Ratio Cancelled Sodium 137 Potassium Chloride 106 Carbon Dioxide 24 Anion Gap 7.0 BUN 10 Creatinine 1.05 Est Cr Clr Drug Dosing Not Reportable Est GFR ( Amer) 96.8 Est GFR (Non-Af Amer) 83.5 BUN/Creatinine Ratio 9.4 L Glucose 221 H POC Glucose Lactate Calcium 9.3 Magnesium Total Bilirubin 0.4 AST ALT 26 Alkaline Phosphatase 107 Troponin I < 0.015 NT-Pro-B Natriuret Pep 66 Total Protein 6.7 Albumin 2.8 L Globulin 3.9 Albumin/Globulin Ratio 0.7 L Lipase 54 L Procalcitonin Cancelled TSH 0.290 L Free T4 1.02 Urine Color Urine Appearance Urine pH Ur Specific [place] Urine Protein Urine Glucose (UA) Urine Ketones Urine Blood Urine Nitrite Urine Bilirubin Urine Urobilinogen Ur Leukocyte Esterase Urine WBC (Auto) Urine RBC (Auto) U Hyaline Cast (Auto) U Epithel Cells (Auto) Urine Bacteria (Auto) Urine Opiates Screen Ur Methadone, Qual Urine Barbiturates Ur Phencyclidine (PCP) U Amphetamin/Meth Scrn MDMA (Ecstasy) Screen U Benzodiazepines Scrn Ur Cocaine Metabolite U Marijuana (THC) Screen 03/20/19 03/20/19 03/20/19 00:15 01:04 01:04 WBC RBC Hgb Hct MCV MCH MCHC RDW Std Deviation RDW Coeff of Megan Plt Count MPV Immature Gran % (Auto) Neut % (Auto) Lymph % (Auto) [place] % (Auto) Eos % (Auto) Baso % (Auto) Immature Gran # (Auto) Neut # (Auto) Lymph # (Auto) [place] # (Auto) Eos # (Auto) Baso # (Auto) PT > 90.0 H INR > 10.4 H* APTT 47.8 H* PTT Ratio 1.8 Sodium Potassium 4.4 Chloride Carbon Dioxide Anion Gap BUN Creatinine Est Cr Clr Drug Dosing Est GFR ( Amer) Est GFR (Non-Af Amer) BUN/Creatinine Ratio Glucose POC Glucose Lactate 2.8 H* Calcium Magnesium 1.8 Total Bilirubin AST 10 L ALT Alkaline Phosphatase Troponin I NT-Pro-B Natriuret Pep Total Protein Albumin Globulin Albumin/Globulin Ratio Lipase Procalcitonin TSH Free T4 Urine Color Urine Appearance Urine pH Ur Specific [place] Urine Protein Urine Glucose (UA) Urine Ketones Urine Blood Urine Nitrite Urine Bilirubin Urine Urobilinogen Ur Leukocyte Esterase Urine WBC (Auto) Urine RBC (Auto) U Hyaline Cast (Auto) U Epithel Cells (Auto) Urine Bacteria (Auto) Urine Opiates Screen Ur Methadone, Qual Urine Barbiturates Ur Phencyclidine (PCP) U Amphetamin/Meth Scrn MDMA (Ecstasy) Screen U Benzodiazepines Scrn Ur Cocaine Metabolite U Marijuana (THC) Screen 03/20/19 03/20/19 03/20/19 01:04 06:51 06:51 WBC 10.15 RBC 4.21 L Hgb 10.2 L Hct 32.3 L MCV 76.7 L MCH 24.2 L MCHC 31.6 L RDW Std Deviation 49.0 H RDW Coeff of Megan 17.4 H Plt Count 226 MPV 9.9 Immature Gran % (Auto) 0.1 Neut % (Auto) 79.2 Lymph % (Auto) 10.6 [place] % (Auto) 10.0 Eos % (Auto) 0.0 Baso % (Auto) 0.1 Immature Gran # (Auto) 0.01 Neut # (Auto) 8.03 H Lymph # (Auto) 1.08 L [place] # (Auto) 1.02 H Eos # (Auto) 0.00 Baso # (Auto) 0.01 PT INR APTT PTT Ratio Sodium 137 Potassium 4.3 Chloride 106 Carbon Dioxide 27 Anion Gap 4.0 BUN 12 Creatinine 1.00 Est Cr Clr Drug Dosing 166.1 Est GFR ( Amer) 102.7 Est GFR (Non-Af Amer) 88.6 BUN/Creatinine Ratio 12.1 Glucose 244 H POC Glucose Lactate Calcium 9.3 Magnesium 2.0 Total Bilirubin AST ALT Alkaline Phosphatase Troponin I NT-Pro-B Natriuret Pep Total Protein Albumin Globulin Albumin/Globulin Ratio Lipase Procalcitonin < 0.05 TSH Free T4 Urine Color Urine Appearance Urine pH Ur Specific [place] Urine Protein Urine Glucose (UA) Urine Ketones Urine Blood Urine Nitrite Urine Bilirubin Urine Urobilinogen Ur Leukocyte Esterase Urine WBC (Auto) Urine RBC (Auto) U Hyaline Cast (Auto) U Epithel Cells (Auto) Urine Bacteria (Auto) Urine Opiates Screen Ur Methadone, Qual Urine Barbiturates Ur Phencyclidine (PCP) U Amphetamin/Meth Scrn MDMA (Ecstasy) Screen U Benzodiazepines Scrn Ur Cocaine Metabolite U Marijuana (THC) Screen 03/20/19 03/20/19 03/20/19 06:51 06:51 13:07 WBC RBC Hgb 11.0 L Hct 34.1 L MCV MCH MCHC RDW Std Deviation RDW Coeff of Megan Plt Count MPV Immature Gran % (Auto) Neut % (Auto) Lymph % (Auto) [place] % (Auto) Eos % (Auto) Baso % (Auto) Immature Gran # (Auto) Neut # (Auto) Lymph # (Auto) [place] # (Auto) Eos # (Auto) Baso # (Auto) PT 62.8 H INR 7.1 H* APTT PTT Ratio Sodium Potassium Chloride Carbon Dioxide Anion Gap BUN Creatinine Est Cr Clr Drug Dosing Est GFR ( Amer) Est GFR (Non-Af Amer) BUN/Creatinine Ratio Glucose POC Glucose Lactate 1.8 Calcium Magnesium Total Bilirubin AST ALT Alkaline Phosphatase Troponin I NT-Pro-B Natriuret Pep Total Protein Albumin Globulin Albumin/Globulin Ratio Lipase Procalcitonin TSH Free T4 Urine Color Urine Appearance Urine pH Ur Specific [place] Urine Protein Urine Glucose (UA) Urine Ketones Urine Blood Urine Nitrite Urine Bilirubin Urine Urobilinogen Ur Leukocyte Esterase Urine WBC (Auto) Urine RBC (Auto) U Hyaline Cast (Auto) U Epithel Cells (Auto) Urine Bacteria (Auto) Urine Opiates Screen Ur Methadone, Qual Urine Barbiturates Ur Phencyclidine (PCP) U Amphetamin/Meth Scrn MDMA (Ecstasy) Screen U Benzodiazepines Scrn Ur Cocaine Metabolite U Marijuana (THC) Screen 03/20/19 03/20/19 03/20/19 16:46 18:45 20:45 WBC RBC Hgb 11.1 L Hct 34.8 L MCV MCH MCHC RDW Std Deviation RDW Coeff of Megan Plt Count MPV Immature Gran % (Auto) Neut % (Auto) Lymph % (Auto) [place] % (Auto) Eos % (Auto) Baso % (Auto) Immature Gran # (Auto) Neut # (Auto) Lymph # (Auto) [place] # (Auto) Eos # (Auto) Baso # (Auto) PT INR APTT PTT Ratio Sodium Potassium Chloride Carbon Dioxide Anion Gap BUN Creatinine Est Cr Clr Drug Dosing Est GFR ( Amer) Est GFR (Non-Af Amer) BUN/Creatinine Ratio Glucose POC Glucose 140 H 142 H Lactate Calcium Magnesium Total Bilirubin AST ALT Alkaline Phosphatase Troponin I NT-Pro-B Natriuret Pep Total Protein Albumin Globulin Albumin/Globulin Ratio Lipase Procalcitonin TSH Free T4 Urine Color Urine Appearance Urine pH Ur Specific [place] Urine Protein Urine Glucose (UA) Urine Ketones Urine Blood Urine Nitrite Urine Bilirubin Urine Urobilinogen Ur Leukocyte Esterase Urine WBC (Auto) Urine RBC (Auto) U Hyaline Cast (Auto) U Epithel Cells (Auto) Urine Bacteria (Auto) Urine Opiates Screen Ur Methadone, Qual Urine Barbiturates Ur Phencyclidine (PCP) U Amphetamin/Meth Scrn MDMA (Ecstasy) Screen U Benzodiazepines Scrn Ur Cocaine Metabolite U Marijuana (THC) Screen 03/21/19 03/21/19 03/21/19 05:27 05:27 07:33 WBC RBC Hgb Hct MCV MCH MCHC RDW Std Deviation RDW Coeff of Megan Plt Count MPV Immature Gran % (Auto) Neut % (Auto) Lymph % (Auto) [place] % (Auto) Eos % (Auto) Baso % (Auto) Immature Gran # (Auto) Neut # (Auto) Lymph # (Auto) [place] # (Auto) Eos # (Auto) Baso # (Auto) PT 39.5 H INR 4.3 H APTT PTT Ratio Sodium 140 Potassium 3.6 D Chloride 101 Carbon Dioxide 35 H Anion Gap 5.0 BUN 14 Creatinine 1.11 Est Cr Clr Drug Dosing 149.6 Est GFR ( Amer) 90.5 Est GFR (Non-Af Amer) 78.1 BUN/Creatinine Ratio 12.9 Glucose 138 H POC Glucose 134 H Lactate Calcium 8.8 Magnesium Total Bilirubin AST ALT Alkaline Phosphatase Troponin I NT-Pro-B Natriuret Pep Total Protein Albumin Globulin Albumin/Globulin Ratio Lipase Procalcitonin TSH Free T4 Urine Color Urine Appearance Urine pH Ur Specific [place] Urine Protein Urine Glucose (UA) Urine Ketones Urine Blood Urine Nitrite Urine Bilirubin Urine Urobilinogen Ur Leukocyte Esterase Urine WBC (Auto) Urine RBC (Auto) U Hyaline Cast (Auto) U Epithel Cells (Auto) Urine Bacteria (Auto) Urine Opiates Screen Ur Methadone, Qual Urine Barbiturates Ur Phencyclidine (PCP) U Amphetamin/Meth Scrn MDMA (Ecstasy) Screen U Benzodiazepines Scrn Ur Cocaine Metabolite U Marijuana (THC) Screen (1) Hematuria Hematuria type: unspecified type Qualified Code(s): R31.9 - Hematuria, unspecified
[2019-03-21] MEDS ORDERED: POTASSIUM CHLORIDE 20 MEQ TABCR PO STA (10:26)
--- NOTE | 2019-03-21 14:47 | Hospitalist Progress Note ---
Date of Service March 21, 2019 Assessment & Plan (1) Acute on chronic diastolic congestive heart failure, NYHA class 3: Volume overload felt to be secondary to right heart failure, obesity hypoventilation syndrome, noncompliance. We will continue IV furosemide at 40 mg BID to start with. Restrict sodium and fluids, restricting sodium to 1500 mg/day and fluids to less than 2000 mL/day Strict I's and O's Appreciate cardiology input and recommendation Clinically improved with less swelling of the legs no shortness of breath at rest Continue to diurese but weight remains unchanged since admission We will continue current dose of diuretics Ileus As per KUB Presented with nausea, vomiting and abdominal distention Has been on n.p.o., getting sips of water and oral medication Surgery consulted Clinically improving (2) Hematuria: Has had hematuria today after he was discharged from the hospital last time Has indwelling Lloyd catheter due to prostatic hypertrophy Came back again yesterday with ongoing hematuria Likely secondary to trauma and is complicated by supratherapeutic INR Appreciate urology input and recommendation Hematuria seems to be clearing up and cleared UTI Has been on Zosyn Urine culture growing enterococcus, sensitivities pending (3) Indwelling Lloyd catheter present: As above History of ESBL UTI Will await urine culture and sensitivity-growing enterococcus Will require total 10 to 14 days of antibiotic Management as per urologist-change Lloyd about 2 to 3 days prior to finishing the course of antibiotic (4) Chronic back pain: Has been on chronic pain medications with MS contin and oxycodone He will not be given any prescription of narcotics on discharge He has been getting Dilaudid 1 mg twice daily for increasing back pain He will not be given corresponding dose of oxycodone when he receives IV Dilaudid (5) Atypical chest pain: Complains to have chest pain Has had chest pain before without any evidence of ACS Serial cardiac enzymes have been negative Doubt any ACS this time (6) Elevated lactic acid level: His lactic acid was mildly elevated on admission UA did not look like an infection and chest x-ray did show possible right upper lobe infiltration Urine and blood cultures have been sent Started on Zosyn and will continue for now Doubt any sepsis for now (7) Pulmonary embolism: History of pulmonary embolism on Coumadin Recurrent admission with supratherapeutic INR INR was more than 10 on admission Received vitamin K and the INR is down to around 7 this morning We will monitor INR-INR is down to 4.3 on 03/21 Coumadin is still on hold (8) Morbid obesity: Limited physical activity due to obesity We will continue PT and OT evaluation and follow the recommendation (9) COPD (chronic obstructive pulmonary disease): Has more shortness of breath Does not have any COPD exacerbation (10) Depression with anxiety: Seems to be stable Continue current medications Subjective 03/20 Patient was seen and examined in the telemetry unit This is a 48-year-old male with past medical history significant for chronic diastolic CHF; pulmonary embolism, on Coumadin; hypertension; morbid obesity; COPD; ongoing tobacco abuse; depression; anxiety; migraines; history of recurrent admissions for CHF; and chronic pain. Recently also had ESBL UTI treated with Invanz for 4-5 days, history of BPH on Lloyd.admitted with hematuria and fluid overload with associated shortness of breath. He complains to have increasing back pain since manipulation of his right lower extremity last night Complaint shortness of breath without any desaturation Hematuria seems to be improving 03/21 Patient was seen and examined in telemetry unit He continues to have epigastric discomfort with nausea and vomiting KUB showed Ileus without any obstruction Has been n.p.o. with oral medications with sips of water Denies any other significant symptoms this morning Review of Systems Review of Systems: All systems reviewed and are unremarkable except as noted below Constitutional: + weakness, + weight gain and + problem reported (Increasing pain the lower back) Respiratory: + dyspnea (At rest without any desaturation) Gastrointestinal: + abdominal pain and + bloating Complains right lower quadrant pain. CT of the abdomen&pelvis have been negative except nephrolithiasis as before Genitourinary: no hematuria Musculoskeletal: Increasing pain in the lower back with radiation to right leg Neurologic: + generalized weakness Physical Exam Physical Exam: Lying in bed comfortably Constitutional: well developed, well nourished, + ill appearing and + morbidly obese Eyes: PERRL, conjunctivae normal, anicteric sclerae ENMT: external ear and nose normal, oropharynx normal Neck: trachea midline, no thyromegaly Respiratory: + respiratory distress (Minimal distress at rest) Auscultation: + diminished lung sounds and + crackles (Bibasilar crackles) Cardiovascular: Rate/Rhythm: regular rate and regular rhythm Extremities: + edema (1-2+ bilaterally and chronic) Gastrointestinal (Abdomen): Inspection/Auscultation: + abdomen distended and normal bowel sounds Percussion/Palpation: abdomen soft; abdomen nontender Musculoskeletal: Chronic back pain Neurologic: moves all extremities Psychiatric: A+Ox3, euthymic affect Genitourinary: no CVA tenderness Has indwelling Lloyd catheter Lymphatic: no cervical or axillary lymphadenopathy Results & Data Vital Signs (Past 12 Hours) Vital Signs Temp Pulse Pulse Resp BP Pulse Ox 03/21/19 10:28 36.5 C 92 H 18 132/38 L 90 03/21/19 07:35 36.6 C 89 90 16 124/81 92 03/21/19 03:44 36.9 C 93 H 23 113/58 L 92 Laboratory Results Short CBC 03/20/19 Range/Units 18:45 Hgb 11.1 L (14.0-18.0) g/dL Hct 34.8 L (42-52) % BMP 03/21/19 05:27 Sodium 140 Potassium 3.6 D Chloride 101 Carbon Dioxide 35 H BUN 14 Creatinine 1.11 Glucose 138 H Calcium 8.8 Diagnostic Findings KUB showed Ileus without any obstruction Medications Administered Current Inpatient Medications Acetaminophen (Tylenol) 650 mg PO Q4H PRN PRN Reason: Pain or Fever Stop: 04/19/19 03:15 Albuterol (Duoneb) 3 ml INH Q4H PRN PRN Reason: Shortness Of Breath Or Wheezing Stop: 04/19/19 03:15 Albuterol (Ventolin Hfa) 2 puffs INH Q4H PRN PRN Reason: Wheezing Stop: 04/19/19 03:15 Cyclobenzaprine HCl (Flexeril) 10 mg PO BID [facility] Stop: 04/19/19 08:59 Last Admin: 03/21/19 08:34 Dose: 10 mg Documented by: Docusate Sodium (Colace) 100 mg PO BID [facility] Stop: 04/19/19 08:59 Last Admin: 03/21/19 08:34 Dose: 100 mg Documented by: Duloxetine HCl (Cymbalta) 60 mg PO QAM [facility] Stop: 04/19/19 08:59 Last Admin: 03/21/19 08:34 Dose: 60 mg Documented by: Finasteride (Proscar) 5 mg PO QAM [facility] Stop: 04/19/19 08:59 Last Admin: 03/21/19 08:36 Dose: 5 mg Documented by: Fluticasone Propionate (Flonase) 2 sprays NA QAM [facility] Stop: 04/19/19 08:59 Last Admin: 03/21/19 08:46 Dose: 2 sprays Documented by: Gabapentin (Neurontin) 300 mg PO TID [facility] Stop: 04/19/19 08:59 Last Admin: 03/21/19 14:05 Dose: 300 mg Documented by: Hydromorphone HCl (Dilaudid) 1 mg IV UD PRN PRN Reason: Pain Stop: 04/03/19 09:13 Last Admin: 03/21/19 08:37 Dose: 1 mg Documented by: Hydroxyzine HCl (Vistaril) 25 mg PO QID PRN PRN Reason: Anxiety Stop: 04/19/19 03:15 Piperacillin Sod/Tazobactam (Sod 4.5 gm/ Dextrose) 120 mls @ 30 mls/hr IV Q8H [facility]; Protocol Stop: 03/30/19 07:59 Last Infusion: 03/21/19 12:40 Dose: Infused Documented by: Furosemide 40 mg/ Syringe 4 mls @ 4 mls/min IV BID17 [facility] Stop: 04/19/19 10:44 Last Admin: 03/21/19 08:33 Dose: 4 mls/min Documented by: Promethazine HCl 25 mg/ Sodium (Chloride) 51 mls @ 204 mls/hr IV Q6H PRN PRN Reason: Nausea And Vomiting Stop: 04/19/19 16:04 Last Infusion: 03/20/19 17:20 Dose: Infused Documented by: Insulin Aspart (Novolog Flexpen) 0 units SC ACHS [facility] Stop: 04/19/19 16:29 Last Admin: 03/21/19 11:41 Dose: Not Given Documented by: Isosorbide Dinitrate (Isordil) 10 mg PO BID@0700,1200 [facility] Stop: 04/19/19 06:59 Last Admin: 03/21/19 12:07 Dose: 10 mg Documented by: Lorazepam (Ativan) 1 mg PO TID PRN PRN Reason: Anxiety Stop: 04/19/19 03:15 Magnesium Oxide (Mag-Ox) 400 mg PO QAM [facility] Stop: 04/19/19 08:59 Last Admin: 03/21/19 08:36 Dose: 400 mg Documented by: Metoprolol Succinate (Toprol Xl) 25 mg PO BID [facility] Stop: 04/19/19 08:59 Last Admin: 03/21/19 08:35 Dose: 25 mg Documented by: Miscellaneous Information (Consult) 1 ea N/A UD PRN PRN Reason: Consult Stop: 04/19/19 03:15 Morphine Sulfate (Ms Contin) 15 mg PO Q12H [facility] Stop: 04/03/19 08:59 Last Admin: 03/21/19 08:33 Dose: 15 mg Documented by: Nitroglycerin (Nitrostat) 0.4 mg SL UD PRN PRN Reason: Chest Pain Stop: 04/19/19 03:15 Nystatin (Mycostatin) 1 appln EXT BID PRN PRN Reason: Rash Stop: 04/19/19 03:15 Ondansetron HCl (Zofran) 4 mg IV Q6H PRN PRN Reason: Nausea Stop: 04/19/19 03:15 Last Admin: 03/21/19 08:37 Dose: 4 mg Documented by: Oxycodone HCl (Roxicodone Immediate Rel) 15 mg PO Q4H PRN PRN Reason: Breakthrough Pain Stop: 04/03/19 03:15 Last Admin: 03/21/19 11:56 Dose: 15 mg Documented by: Pantoprazole Sodium (Protonix) 40 mg PO BID [facility] Stop: 04/19/19 20:59 Last Admin: 03/21/19 08:35 Dose: 40 mg Documented by: Polyethylene Glycol (Miralax Powder Packet) 17 gm PO DAILY PRN PRN Reason: Constipation Stop: 04/19/19 03:15 Last Admin: 03/20/19 12:48 Dose: 17 gm Documented by: Sodium Biphosphate/Sodium Phosphate (Fleet Enema) 133 ml MA DAILY PRN PRN Reason: Constipation Stop: 04/19/19 03:15 Spironolactone (Aldactone) 50 mg PO BID [facility] Stop: 04/19/19 08:59 Last Admin: 03/21/19 08:36 Dose: 50 mg Documented by: Tamsulosin HCl (Flomax) 0.4 mg PO DAILY [facility] Stop: 04/19/19 08:59 Last Admin: 03/21/19 08:35 Dose: 0.4 mg Documented by: Tiotropium [place] (Spiriva) 1 puffs INH DAILY [facility] Stop: 04/19/19 08:59 Last Admin: 03/21/19 08:46 Dose: 1 puffs Documented by: Tramadol HCl (Ultram) 50 mg PO Q4H PRN PRN Reason: Pain Stop: 04/19/19 03:15 Last Admin: 03/21/19 14:05 Dose: 50 mg Documented by: (1) Hematuria Hematuria type: unspecified type Qualified Code(s): R31.9 - Hematuria, unspecified (2) Pulmonary embolism Pulmonary embolism type: unspecified Chronicity: chronic Acute cor pulmonale presence: without acute cor pulmonale Qualified Code(s): I27.82 - Chronic pulmonary embolism (3) COPD (chronic obstructive pulmonary disease) COPD type: emphysema Emphysema type: unspecified Qualified Code(s): J43.9 - Emphysema, unspecified
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
[2019-03-21] MEDS: PROMETHAZINE HCL 25 MG in SODIUM CHLORIDE 0.9% 50 ML IV PRN (18:06)
[2019-03-21] MEDS ORDERED: SOD PHOSPHATE/SOD BIPHOSPHATE ENEMA 132 ML BTL PR STA (18:10)
[2019-03-21] MEDS ORDERED: POLYETHYLENE (MIRALAX) 17 GM PACK PO ONE (18:11)
[2019-03-21] MEDS ORDERED: HYDROmorphone INJ 1 MG/ML SYRINGE IV STA (20:26)
[2019-03-22] MEDS ORDERED: HYDROmorphone INJ 1 MG/ML SYRINGE IV STA (00:43)
[2019-03-22] MEDS: PIPERACILLIN/TAZOBACTAM 4.5 GM in DEXTROSE 5% 100 ML IV SCH ×2 (00:59→08:15)
[2019-03-22] MEDS: ONDANSETRON INJ 2 MG/ML 2 ML VIAL IV PRN ×3 (01:00→13:44)
[2019-03-22] MEDS: OXYCODONE HCL IR 5 MG TAB (IMMEDIATE RELEASE) PO PRN ×4 (06:39→22:32)
[2019-03-22] MEDS: ISOSORBIDE DINITRATE 10 MG TAB PO SCH ×2 (06:39→11:22)
[2019-03-22 07:48] LABS: INR 3.7 (0.9-1.1); Prothrombin Time 34.5 Seconds (9.0-12.0)
[2019-03-22] MEDS: FUROSEMIDE 40 MG in SYRINGE 0 ML IV SCH (07:55)
[2019-03-22] MEDS: GABAPENTIN 300 MG CAP PO SCH ×3 (07:56→20:09)
[2019-03-22] MEDS: DULOXETINE HCL 60 MG CAP PO SCH (07:57)
[2019-03-22] MEDS: SPIRONOLACTONE 25 MG TAB PO SCH ×2 (07:58→20:08)
[2019-03-22] MEDS: FINASTERIDE 5 MG TAB PO SCH (07:58)
[2019-03-22] MEDS: TAMSULOSIN HCL 0.4 MG CAP PO SCH (07:58)
[2019-03-22] MEDS: MAGNESIUM OXIDE 400 MG TAB PO SCH (07:58)
[2019-03-22] MEDS: DOCUSATE SODIUM 100 MG CAP PO SCH ×2 (07:58→20:09)
[2019-03-22] MEDS: MoRPHine SULFATE CR 15 MG TABCR PO SCH ×2 (07:59→20:18)
[2019-03-22] MEDS: METOPROLOL SUCC 25MG EXT REL TAB PO SCH ×2 (07:59→20:09)
[2019-03-22] MEDS: FLUTICASONE PROPIONATE NA SPR 16 GM BTL SCH (07:59)
[2019-03-22] MEDS: TIOTROPIUM BROMIDE 5 PUFF/90 MCG INH INH SCH (07:59)
[2019-03-22] MEDS: CYCLOBENZAPRINE HCL 10 MG TAB PO SCH ×2 (07:59→20:08)
[2019-03-22] MEDS: PANTOprazole 40 MG TAB PO SCH ×2 (07:59→20:10)
[2019-03-22] MEDS: INSULIN ASPART 100 UNITS/ML 3 ML PEN SC SCH ×4 (08:05→20:20)
[2019-03-22] MEDS: PROMETHAZINE HCL 25 MG in SODIUM CHLORIDE 0.9% 50 ML IV PRN (08:07)
[2019-03-22] MEDS: HYDROmorphone INJ 1 MG/ML SYRINGE IV PRN ×2 (09:54→20:07)
[2019-03-22] MEDS ORDERED: POTASSIUM CHLORIDE 20 MEQ TABCR PO STA (10:29)
--- NOTE | 2019-03-22 10:31 | Cardiology Progress Note ---
Date of Service March 22, 2019 Assessment & Plan (1) Right heart failure: Volume overload felt to be secondary to right heart failure, obesity hypoventilation syndrome, noncompliance. Increase IV furosemide to 60 mg BID Continue spironolactone Supplement potassium orally. Sodium (1,500 mg/day) and fluid restriction (<2,000 mL/day). Strict I's and O's Lloyd catheter Daily metabolic panels. (2) Atypical chest pain: Stable Troponin negative EKG without acute change (3) Supratherapeutic INR: Anticoagulation prescribed due to a PE in September 2018. INR greater than 10.4 on presentation, receiving 5 mg vitamin K on admission. INR 3.7 today. H&H stable He is not a good candidate for Lovenox due to morbid obesity. As per Hospitalist Service, likely resuming Coumadin tonight or tomorrow. (4) Tachycardia: Sinus/sinus tachycardia on continuous telemetry. No atrial or ventricular arrhythmias observed. (5) Tobacco abuse: Cessation advised Supervising Physician Co-Signing Physician Notes Patient seen and examined with Owen Saavedra PA-C. Agree with findings and assessment as above. Pt continues to diurese well, down 3.5 #'s overnight. Clinical evaluation of volume status difficult due to morbid obesity, however, believe we should cont with IV diuresis. Subjective Patient seen and examined. Chart, medications, and telemetry reviewed. Ongoing volume overload reported. Stable dyspnea, orthopnea, and peripheral edema. Stable chest pain. No new chest pain. No palpitations. + Nausea without emesis. I/O's negative 7,371 mL's overall Weight is down 1.6 kg (3.5 pounds) Telemetry: Sinus in the 80's INR 3.7 Review of Systems Review of Systems: All systems reviewed & are unremarkable except as noted in HPI & below Physical Exam Physical Exam: General: A&Ox3. NAD. Obese HEENT: Normocephalic. Atraumatic. PER. Conjunctiva pink, sclera clear. Neck: No carotid bruits. No overt JVD. Neck is quite thick. Heart: Distant heart sounds. RRR, 80 bpm. I could not appreciate a murmur. No rub heard. Lungs: Diffuse expiratory wheezing. Abdomen: +BS. Somewhat firm, nontender. No masses or organomegaly. Extremities: 1-2+ edema. No clubbing. No cyanosis. Limited neurological examination is without focal deficits. Pulses: radial=2/4, posterior tibial=0/4. Results & Data Vital Signs (Past 12 Hours) Vital Signs Temp Pulse Pulse Resp BP BP Pulse Ox 03/22/19 07:43 36.5 C 94 H 18 109/56 L 90 03/22/19 00:30 36.7 C 91 H 20 138/74 93 Laboratory Results - last 24 hr 03/21/19 03/21/19 03/21/19 11:08 16:28 20:23 PT INR POC Glucose 137 H 133 H 143 H 03/22/19 03/22/19 06:52 08:00 PT 34.5 H INR 3.7 H POC Glucose 194 H
[2019-03-22 11:05] LABS: BUN Creatinine Ratio 12.8 (10-20); Calcium 8.8 mg/dl (8.5-10.1); Creatinine Clr Calc Pharmacy 143.7 ml/min; Est GFR (African American) 86.7; Est GFR (Non-African American) 74.8; Potassium 3.7 mmol/L (3.5-5.1)
--- NOTE | 2019-03-22 11:44 | Surgery Progress Note ---
Date of Service doing better, no nausea, no vomiting today, less abdominal pain, no BM yet, March 22, 2019 Assessment & Plan (1) Ileus: pt is a 48 year -old male is consult chronic abdominal pain, KUB 03/20/2019-IMPRESSION: 1. Interval development of mild small bowel dilatation which may reflect an ileus or partial small bowel obstruction. 2. 3 mm right renal calculus. CT scan 03/20/2019-IMPRESSION: 1. Stable right-sided nephrolithiasis. No ureteral stones. No hydronephrosis. 2. No definite bowel wall thickening or obstruction. 3. Additional stable findings as described above. IMP: chronic abdominal pain, fleet enema, stool softner, repeat KUB in am, clear diet today, will F/U 03/22/2019 11:42am doing fine, miralax today on-call surgeon will cover for tomorrow Subjective Patient seen and examined. Chart, medications, and telemetry reviewed. Ongoing volume overload reported. Stable dyspnea, orthopnea, and peripheral edema. Stable chest pain. No new chest pain. No palpitations. + Nausea without emesis. I/O's negative 7,371 mL's overall Weight is down 1.6 kg (3.5 pounds) Telemetry: Sinus in the 80's INR 3.7 Physical Exam Constitutional: WD/WN, vitals as above well developed and well nourished Neck: trachea midline, no thyromegaly Respiratory: normal respiratory effort, lungs clear to auscultation Cardiovascular: RRR, no murmur, no edema Gastrointestinal (Abdomen): Percussion/Palpation: abdomen soft slightly tendenrness at lower abdomen, no rebound pain, BS +, no distend Results & Data Vital Signs (Past 12 Hours) Vital Signs Temp Pulse Pulse Resp BP BP Pulse Ox 03/22/19 11:16 37.1 C 92 H 20 101/83 98 03/22/19 07:43 36.5 C 94 H 18 109/56 L 90 03/22/19 00:30 36.7 C 91 H 20 138/74 93
[2019-03-22] MEDS ORDERED: POLYETHYLENE (MIRALAX) 17 GM PACK PO SCH (11:45)
[2019-03-22] MEDS: TRAMADOL HCL 50 MG TABLET PO PRN ×3 (12:39→23:51)
[2019-03-22] MEDS: POLYETHYLENE (MIRALAX) 17 GM PACK PO PRN (12:39)
[2019-03-22 13:15] LABS: Codeine Urine NEGATIVE NG/ML (CUTOFF=50); Hydrocodone Urine NEGATIVE NG/ML (CUTOFF=50); Hydromor Urine NEGATIVE NG/ML (CUTOFF=50); Morphine Urine 83 NG/ML (CUTOFF=50); Norhydrocodone Conf Ur NEGATIVE NG/ML (CUTOFF=50); Noroxycodone Urine NEGATIVE NG/ML (CUTOFF=50); Oxycodone Urine NEGATIVE NG/ML (CUTOFF=50); Oxymorph Urine 73 NG/ML (CUTOFF=50)
[2019-03-22] MEDS: NICOTINE 21 MG/24 HR TDSY TD SCH (13:43)
--- NOTE | 2019-03-22 14:19 | XRay Report ---
KUB HISTORY: Bowel obstruction. Follow-up. COMPARISON: KUB 03/20/2019. FINDINGS: Stable 3 mm stone within the right kidney. Large amount of well-formed stool seen throughou t the colon, unchanged. Mildly dilated gas-filled loops of small bowel within the left upper quadrant is similar to the prior study. No pneumoperitoneum or pneumatosis. IMPRESSION: 1. No change in mildly dilated gas-filled loops of small bowel within the left upper quadrant. This m ay represent an ileus or partial small bowel obstruction. 2. Stable right-sided nephrolithiasis. Electronically signed by: Vidal Keller M.D. 03/22/2019 2:18 PM
[2019-03-22] MEDS: FUROSEMIDE 60 MG in SYRINGE 0 ML IV SCH (17:02)
[2019-03-22] MEDS: AMOXICILLIN/CLAVULANATE 875 MG TAB PO SCH (17:03)
--- NOTE | 2019-03-22 18:45 | Hospitalist Progress Note ---
Date of Service March 22, 2019 Assessment & Plan (1) Acute on chronic diastolic congestive heart failure, NYHA class 3: Volume overload felt to be secondary to right heart failure, obesity hypoventilation syndrome, noncompliance. Restrict sodium and fluids, restricting sodium to 1500 mg/day and fluids to less than 2000 mL/day Lasix increased to 60mg IV BID Continue Strict I's and O's Cardiology on board Continue to diurese but weight has not been changing much Monitor BMP while on diuretic Ileus Repeat KUB showed no change in mildly dilated gas-filled loops of small bowel within the left upper quadrant. On Clear liquid diet Surgery on board recommended to continue clear liquid diet/stool softtener Stable (2) Hematuria: Possible secondary to trauma and complicated by supratherapeutic INR Has indwelling Fontaine catheter due to prostatic hypertrophy Hematuria improves Coumadin on hold Urology on board recommending to changing fontaine catheter towards end of abx, course, with 3-4 days left of course. Continue flamx and finasteride (3) Indwelling Fontaine catheter present: UTI Urine cx grew enterococcus faecalis IV Zosyn changed to Augmentin Will require total 10 to 14 days of antibiotic Management as per urologist-change Fontaine about 2 to 3 days prior to finishing the course of antibiotic Stable (4) Chronic back pain: Has been on chronic pain medications with MS contin and oxycodone He will not be given any prescription of narcotics on discharge He has been getting Dilaudid 1 mg twice daily for increasing back pain Continue monitor (5) Atypical chest pain: Complains to have chest pain Has had chest pain before without any evidence of ACS Serial cardiac enzymes have been negative EKG showed no ST changes Stable (6) Elevated lactic acid level: His lactic acid was mildly elevated on admission Possible related to infection UA positive for enterococcus faecalis Blood cx no growth Zosyn changed to Augmentin Resolved (7) Pulmonary embolism: History of pulmonary embolism on Coumadin Recurrent admission with supratherapeutic INR INR was more than 10 on admission Received vitamin K and the INR is down to around 7 this morning We will monitor INR-INR is down to 3.7 on 03/22 Will give INR 2 mg today (8) Morbid obesity: Limited physical activity due to obesity Continue PT and OT evaluation and follow the recommendation (9) COPD (chronic obstructive pulmonary disease): Has more shortness of breath Does not have any COPD exacerbation (10) Depression with anxiety: Seems to be stable Continue current medications DVT px Coumadin on hold INR 3.7 today CODE Status Full code Subjective Pt was seen and examined Lying on the recliner with no distress Pt said that he continues to have pain He said that he feels nauseated Pt said that he feels constipated Denies any chest pain, palpitation, dizziness and SOB Physical Exam Physical Exam: General- No acute distress Head- atraumatic Eyes- PERRL, EOMI, ENT- oropharynx clear Neck- supple, no JVD Lungs- Coarse BS Heart- regular rhythm; no murmur Abdomen- normal bowel sounds, +tender Extremities- no calf tenderness, +edema Neuro- alert, oriented x 3; PERRL, EOMI; no facial palsy; no dysarthria Skin- warm & dry Results & Data Vital Signs (Past 12 Hours) Vital Signs Temp Pulse Pulse Resp BP Pulse Ox 03/22/19 16:00 83 03/22/19 15:43 36.6 C 86 18 100/65 96 03/22/19 11:16 37.1 C 92 H 20 101/83 98 03/22/19 07:43 36.5 C 94 H 18 109/56 L 90 (1) Hematuria Hematuria type: unspecified type Qualified Code(s): R31.9 - Hematuria, unspecified (2) COPD (chronic obstructive pulmonary disease) COPD type: emphysema Emphysema type: unspecified Qualified Code(s): J43.9 - Emphysema, unspecified (3) Pulmonary embolism Acute cor pulmonale presence: without acute cor pulmonale Chronicity: chronic Pulmonary embolism type: unspecified Qualified Code(s): I27.82 - Chronic pulmonary embolism
[2019-03-22] MEDS ORDERED: WARFARIN SOD 2.5 MG TAB PO ONE (19:45)
[2019-03-22] MEDS: LORazepam 1 MG TAB PO PRN (22:34)
[2019-03-23] MEDS: OXYCODONE HCL IR 5 MG TAB (IMMEDIATE RELEASE) PO PRN ×5 (02:35→21:34)
[2019-03-23] MEDS: PROMETHAZINE HCL 25 MG in SODIUM CHLORIDE 0.9% 50 ML IV PRN ×3 (02:45→21:14)
[2019-03-23] MEDS: TRAMADOL HCL 50 MG TABLET PO PRN ×5 (04:27→22:45)
[2019-03-23] MEDS: ISOSORBIDE DINITRATE 10 MG TAB PO SCH ×2 (06:00→11:15)
[2019-03-23 07:28] LABS: INR 2.9 (0.9-1.1); Prothrombin Time 27.6 Seconds (9.0-12.0)
--- NOTE | 2019-03-23 07:38 | Progress Note ---
Date of Service March 23, 2019 Assessment & Plan (1) Ileus: says he is hungry- wants more food flatus, no bm yet, good ur output has active bowel sounds on colace, miralax, ? enema will try full liquids, add addnl Miralax consider mag citrate depending on progress Subjective see a/p Results & Data Vital Signs (Past 12 Hours) Vital Signs Temp Pulse Pulse Resp BP BP Pulse Ox 03/23/19 07:28 36.6 C 82 18 111/64 94 03/23/19 04:00 36.4 C L 85 16 115/72 95 03/23/19 00:00 83 03/22/19 23:15 36.7 C 85 16 103/64 95
[2019-03-23 07:41] LABS: BUN Creatinine Ratio 8.7 (10-20); Calcium 8.4 mg/dl (8.5-10.1); Creatinine Clr Calc Pharmacy 145.1 ml/min; Est GFR (African American) 88.6; Est GFR (Non-African American) 76.4; Potassium 3.4 mmol/L (3.5-5.1)
[2019-03-23] MEDS ORDERED: POTASSIUM CHLORIDE 20 MEQ TABCR PO STA (07:46)
[2019-03-23] MEDS: SPIRONOLACTONE 25 MG TAB PO SCH ×2 (07:49→20:12)
[2019-03-23] MEDS: MoRPHine SULFATE CR 15 MG TABCR PO SCH ×2 (07:49→20:23)
[2019-03-23] MEDS: FLUTICASONE PROPIONATE NA SPR 16 GM BTL SCH (07:49)
[2019-03-23] MEDS: FINASTERIDE 5 MG TAB PO SCH (07:50)
[2019-03-23] MEDS: MAGNESIUM OXIDE 400 MG TAB PO SCH (07:50)
[2019-03-23] MEDS: CYCLOBENZAPRINE HCL 10 MG TAB PO SCH ×2 (07:50→20:13)
[2019-03-23] MEDS: POLYETHYLENE (MIRALAX) 17 GM PACK PO SCH ×2 (07:50→20:15)
[2019-03-23] MEDS: DULOXETINE HCL 60 MG CAP PO SCH (07:50)
[2019-03-23] MEDS: GABAPENTIN 300 MG CAP PO SCH ×3 (07:50→20:14)
[2019-03-23] MEDS: TAMSULOSIN HCL 0.4 MG CAP PO SCH (07:50)
[2019-03-23] MEDS: AMOXICILLIN/CLAVULANATE 875 MG TAB PO SCH ×2 (07:50→17:18)
[2019-03-23] MEDS: FUROSEMIDE 60 MG in SYRINGE 0 ML IV SCH ×2 (07:51→17:19)
[2019-03-23] MEDS: NICOTINE 21 MG/24 HR TDSY TD SCH (07:51)
[2019-03-23] MEDS: PANTOprazole 40 MG TAB PO SCH ×2 (07:51→20:16)
[2019-03-23] MEDS: METOPROLOL SUCC 25MG EXT REL TAB PO SCH ×2 (07:51→20:16)
[2019-03-23] MEDS: TIOTROPIUM BROMIDE 5 PUFF/90 MCG INH INH SCH (07:52)
[2019-03-23] MEDS: HYDROmorphone INJ 1 MG/ML SYRINGE IV PRN ×2 (07:58→20:12)
[2019-03-23] MEDS: DOCUSATE SODIUM 100 MG CAP PO SCH ×2 (07:58→20:13)
[2019-03-23] MEDS: INSULIN ASPART 100 UNITS/ML 3 ML PEN SC SCH ×4 (07:59→21:43)
[2019-03-23] MEDS: LORazepam 1 MG TAB PO PRN ×2 (10:02→23:36)
--- NOTE | 2019-03-23 10:02 | Cardiology Progress Note ---
Date of Service March 23, 2019 Assessment & Plan (1) Right heart failure: Volume overload felt to be secondary to right heart failure, obesity hypoventilation syndrome, noncompliance. on IV furosemide to 60 mg BID Continue spironolactone Supplement potassium orally. Sodium (1,500 mg/day) and fluid restriction (<2,000 mL/day). Strict I's and O's Lloyd catheter Daily metabolic panels. continues to diurese well with stable renal function body habitus makes clinical evaluation of volume difficult will cont to diurese (2) Atypical chest pain: Stable Troponin negative EKG without acute change (3) Supratherapeutic INR: Anticoagulation prescribed due to a PE in September 2018. INR greater than 10.4 on presentation, receiving 5 mg vitamin K on admission. INR 2.9 today. H&H stable He is not a good candidate for Lovenox due to morbid obesity. cont coumadin (4) Tachycardia: Sinus/sinus tachycardia on continuous telemetry. No atrial or ventricular arrhythmias observed. (5) Tobacco abuse: Cessation advised Subjective Pt seen and examined, oob in chair. States, "I still feel crappy". But admits that breathing is somewhat improved as is peripheral edema. Denies cp, palpitations, lightheadedness or dizziness. tele reviewed: sinus rhythm without arrhythmia or significant ectopy. Review of Systems Review of Systems: All systems reviewed & are unremarkable except as noted in HPI & below Physical Exam Physical Exam: General: Awake, alert and oriented x 3. No acute distress. morbidly obese HEENT: Normocephalic, atraumatic. Pupils equal, round and reactive to light and accommodation. Extraocular muscles are intact. Anicteric sclera. Moist mucous membranes. Neck: No JVD. No bruit. Cardiovascular: Regular but distant, unable to appreciate murmur, rub or gallops. Pulmonary: Clear to auscultation B/L. No rales, rhonchi or wheezing Abdomen: Bowel sounds x 4, soft. No rebound, guarding or tenderness. No organomegaly. Extremities: No clubbing, cyanosis. +2 B/L LE pitting edema. +2 pedal pulses bilaterally. Skin: Warm and dry. chronic venous stasis changes. Results & Data Vital Signs (Past 12 Hours) Vital Signs Temp Pulse Pulse Resp BP BP Pulse Ox 03/23/19 07:28 36.6 C 82 18 111/64 94 03/23/19 04:00 36.4 C L 85 16 115/72 95 03/23/19 00:00 83 03/22/19 23:15 36.7 C 85 16 103/64 95
[2019-03-23] MEDS: POTASSIUM CHLORIDE 20 MEQ TABCR PO SCH ×2 (11:14→20:14)
--- NOTE | 2019-03-23 14:56 | Hospitalist Progress Note ---
Date of Service March 23, 2019 Assessment & Plan (1) Acute on chronic diastolic congestive heart failure, NYHA class 3: Volume overload felt to be secondary to right heart failure, obesity hypoventilation syndrome, noncompliance. Restrict sodium and fluids, restricting sodium to 1500 mg/day and fluids to less than 2000 mL/day Continue IV lasix 60mg BID Lost 3kg today Continue Strict I's and O's Cardiology on board recommended to continue diuresing Monitor BMP while on diuretic Ileus Repeat KUB showed no change in mildly dilated gas-filled loops of small bowel within the left upper quadrant. Surgery on board recommended to advance diet to full liquid and stool softener Continue pain control Stable (2) Hematuria: Possible secondary to trauma and complicated by supratherapeutic INR Has indwelling Fontaine catheter due to prostatic hypertrophy Hematuria occurs today (seems to be related to trauma from the fontaine) Coumadin given yesterday Urology on board recommending to changing fontaine catheter towards end of abx, course, with 3-4 days left of course. Continue flomax and finasteride Monitor CBC (3) Indwelling Fontaine catheter present: UTI Urine cx grew enterococcus faecalis IV Zosyn changed to Augmentin Continue augmentin to complete a total 10 to 14 days of antibiotic Management as per urologist-change Fontaine about 2 to 3 days prior to finishing the course of antibiotic Stable (4) Chronic back pain: Has been on chronic pain medications with MS contin and oxycodone He will not be given any prescription of narcotics on discharge He has been getting Dilaudid 1 mg twice daily for increasing back pain Will d/c dilaudid IV in am Continue monitor (5) Atypical chest pain: Complains to have chest pain Has had chest pain before without any evidence of ACS Serial cardiac enzymes have been negative EKG showed no ST changes Stable (6) Elevated lactic acid level: His lactic acid was mildly elevated on admission Possible related to infection UA positive for enterococcus faecalis Blood cx no growth Zosyn changed to Augmentin Resolved (7) Pulmonary embolism: History of pulmonary embolism on Coumadin Recurrent admission with supratherapeutic INR INR was more than 10 on admission and received Vit K INR 2.9 today Coumadin resumed Will monitor for hematuria, if worsening will hold coumadin (8) Morbid obesity: Limited physical activity due to obesity Continue PT and OT evaluation and follow the recommendation (9) COPD (chronic obstructive pulmonary disease): Has more shortness of breath Does not have any COPD exacerbation (10) Depression with anxiety: Seems to be stable Continue current medications DVT px on coumadin INR 2.9 today CODE Status Full code Subjective Pt was seen and examined Sitting in the recliner chair with no distress Pt said that he continues to have have pain from his chronic problem He wants his diet to advance where he can eat sandwich I went to his room watching him sleeping for about 3 to 5 minutes before i woke him up When he got up, he said that he is in pain He asked for IV pain med I asked him that how could he fall asleep while he was in pain He said that whenever he is in pain, the pain causes him to sleep He is having hematuria with light blood coming from the fontaine catheter He said that he has not had a BM today Physical Exam Physical Exam: General- No acute distress Head- atraumatic Eyes- PERRL, EOMI, ENT- oropharynx clear Neck- supple, no JVD Lungs- diminished BS Heart- regular rhythm; no murmur Abdomen- normal bowel sounds, +tender Extremities- no calf tenderness, +edema Neuro- alert, oriented x 3; PERRL, EOMI; no facial palsy; no dysarthria Skin- warm & dry Results & Data Vital Signs (Past 12 Hours) Vital Signs Temp Pulse Resp BP BP Pulse Ox 03/23/19 11:14 36.9 C 89 20 129/85 92 03/23/19 08:15 94 03/23/19 07:28 36.6 C 82 18 111/64 94 03/23/19 04:00 36.4 C L 85 16 115/72 95 (1) Hematuria Hematuria type: unspecified type Qualified Code(s): R31.9 - Hematuria, unspecified (2) COPD (chronic obstructive pulmonary disease) COPD type: emphysema Emphysema type: unspecified Qualified Code(s): J43.9 - Emphysema, unspecified (3) Pulmonary embolism Acute cor pulmonale presence: without acute cor pulmonale Chronicity: chronic Pulmonary embolism type: unspecified Qualified Code(s): I27.82 - Chronic pulmonary embolism
[2019-03-23] MEDS: WARFARIN SOD 5 MG TAB PO SCH (16:31)
[2019-03-23 18:38] LABS: Hematocrit (blood only) 33.7 % (42-52); Hemoglobin 10.4 g/dL (14.0-18.0)
[2019-03-24] MEDS: OXYCODONE HCL IR 5 MG TAB (IMMEDIATE RELEASE) PO PRN ×6 (01:37→22:29)
[2019-03-24] MEDS: TRAMADOL HCL 50 MG TABLET PO PRN ×5 (02:51→23:31)
[2019-03-24 06:49] LABS: Hematocrit (blood only) 34.3 % (42-52); Hemoglobin 10.7 g/dL (14.0-18.0); Mean Corpuscular Hgb Conc 31.2 g/dL (32-36); Mean Corpuscular Volume 79.6 fL (80-100); Platelet Count 234 K/uL (130-400); RDW Standard Deviation 49.3 fL (36.4-46.3); Red Blood Count 4.31 M/uL (4.7-6.1); White Blood Count 9.62 K/uL (4.8-10.8)
[2019-03-24 07:26] LABS: INR 2.1 (0.9-1.1); Prothrombin Time 20.5 Seconds (9.0-12.0)
[2019-03-24 07:28] LABS: BUN Creatinine Ratio 8.4 (10-20); Calcium 8.8 mg/dl (8.5-10.1); Creatinine Clr Calc Pharmacy 138.4 ml/min; Est GFR (African American) 83.2; Est GFR (Non-African American) 71.8; Potassium 3.8 mmol/L (3.5-5.1)
--- NOTE | 2019-03-24 07:39 | Progress Note ---
Date of Service March 24, 2019 Assessment & Plan (1) Ileus: no bm yet- no emesis or significant nausea will try mag citrate- ask GI to see IF he were to require surgery on his abd we would consider transfer- doubt this will be the case Subjective a/p Results & Data Vital Signs (Past 12 Hours) Vital Signs Temp Pulse Resp BP BP Pulse Ox 03/24/19 04:00 36.9 C 88 22 126/55 L 91 03/23/19 23:23 36.4 C L 90 20 119/67 91 03/23/19 19:46 37.1 C 97 H 22 129/95 92
[2019-03-24] MEDS: MoRPHine SULFATE CR 15 MG TABCR PO SCH ×2 (07:58→20:24)
[2019-03-24] MEDS: HYDROmorphone INJ 1 MG/ML SYRINGE IV PRN ×2 (07:58→20:15)
[2019-03-24] MEDS: DOCUSATE SODIUM 100 MG CAP PO SCH ×2 (07:58→20:13)
[2019-03-24] MEDS: DULOXETINE HCL 60 MG CAP PO SCH (07:58)
[2019-03-24] MEDS: ISOSORBIDE DINITRATE 10 MG TAB PO SCH ×2 (07:58→11:35)
[2019-03-24] MEDS: CYCLOBENZAPRINE HCL 10 MG TAB PO SCH ×2 (07:59→20:12)
[2019-03-24] MEDS: METOPROLOL SUCC 25MG EXT REL TAB PO SCH ×2 (07:59→20:32)
[2019-03-24] MEDS: PANTOprazole 40 MG TAB PO SCH ×2 (07:59→20:30)
[2019-03-24] MEDS: AMOXICILLIN/CLAVULANATE 875 MG TAB PO SCH ×2 (08:00→16:31)
[2019-03-24] MEDS: TAMSULOSIN HCL 0.4 MG CAP PO SCH (08:00)
[2019-03-24] MEDS: NICOTINE 21 MG/24 HR TDSY TD SCH (08:00)
[2019-03-24] MEDS: MAGNESIUM OXIDE 400 MG TAB PO SCH (08:00)
[2019-03-24] MEDS: GABAPENTIN 300 MG CAP PO SCH ×3 (08:00→20:14)
[2019-03-24] MEDS: POLYETHYLENE (MIRALAX) 17 GM PACK PO SCH ×2 (08:00→20:14)
[2019-03-24] MEDS: SPIRONOLACTONE 25 MG TAB PO SCH ×2 (08:00→20:16)
[2019-03-24] MEDS: POTASSIUM CHLORIDE 20 MEQ TABCR PO SCH ×2 (08:00→20:13)
[2019-03-24] MEDS: TIOTROPIUM BROMIDE 5 PUFF/90 MCG INH INH SCH (08:01)
[2019-03-24] MEDS: FINASTERIDE 5 MG TAB PO SCH (08:01)
[2019-03-24] MEDS: FUROSEMIDE 60 MG in SYRINGE 0 ML IV SCH ×2 (08:01→16:31)
[2019-03-24] MEDS: FLUTICASONE PROPIONATE NA SPR 16 GM BTL SCH (08:01)
[2019-03-24] MEDS: INSULIN ASPART 100 UNITS/ML 3 ML PEN SC SCH ×4 (08:03→20:29)
[2019-03-24] MEDS: PROMETHAZINE HCL 25 MG in SODIUM CHLORIDE 0.9% 50 ML IV PRN ×3 (08:17→22:38)
[2019-03-24] MEDS ORDERED: MAGNESIUM CITRATE 296 ML/BTL PO ONE (08:34)
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
--- NOTE | 2019-03-24 08:52 | Cardiology Progress Note ---
Date of Service March 24, 2019 Assessment & Plan (1) Right heart failure: Volume overload felt to be secondary to right heart failure, obesity hypoventilation syndrome, noncompliance. Patient continues to diurese well with stable renal function on IV furosemide to 60 mg BID Continue IV furosemide and spironolactone Continue Sodium (1,500 mg/day) and fluid (<2,000 mL/day) restrictions. Strict I's and O's Lloyd catheter Daily metabolic panels. (2) Atypical chest pain: Stable Troponin negative EKG's without acute change (3) Supratherapeutic INR: Anticoagulation prescribed due to a PE in September 2018. INR greater than 10.4 on presentation, receiving 5 mg vitamin K on admission. INR 2.1 today. H&H stable Continue Coumadin anticoagulation (4) Tachycardia: Sinus/sinus tachycardia on continuous telemetry earlier. No significant atrial or ventricular arrhythmias observed. (5) Tobacco abuse: Cessation advised Supervising Physician Co-Signing Physician Notes Patient seen and examined with Owen Saavedra PA-C. Agree with findings and assessment as above. Pt continues to diurese well with stable renal function. Clinically states that he remains volume overloaded. Will cont with current dose/frequency of lasix and follow strict I/O's. Fluid restriction to be started, given noncompliance, doubt he will follow. Subjective Patient seen and examined. Chart, medications, and telemetry reviewed. Ongoing volume overload reported, dyspnea, orthopnea, peripheral edema. Stable chest pain. No new chest pain. No palpitations. + Nausea. No BM reported x 8 days I/O's negative 12,340 mL's overall Weight is down 2.7 kg (5.9 pounds) Telemetry: Sinus in the 70 to 90 range predominately. Physical Exam Physical Exam: General: A&Ox3. NAD. Obese HEENT: Normocephalic. Atraumatic. PER. Conjunctiva pink, sclera clear. Neck: No carotid bruits. No overt JVD. Neck is quite thick. Heart: Distant heart sounds. RRR, 80 bpm. I could not appreciate a murmur. No rub heard. Lungs: Diminished but clear. Abdomen: +BS. Somewhat firm. No masses or organomegaly. Extremities: 1-2+ edema. No clubbing. No cyanosis. Limited neurological examination is without focal deficits. Pulses: radial=2/4, posterior tibial=0/4. Results & Data Vital Signs (Past 12 Hours) Vital Signs Temp Pulse Resp BP BP Pulse Ox 03/24/19 07:55 36.6 C 85 18 120/76 97 03/24/19 04:00 36.9 C 88 22 126/55 L 91 03/23/19 23:23 36.4 C L 90 20 119/67 91 Laboratory Results - last 24 hr 03/23/19 03/23/19 03/23/19 11:31 16:15 18:29 WBC RBC Hgb 10.4 L Hct 33.7 L MCV MCH MCHC RDW Std Deviation RDW Coeff of Megan Plt Count MPV PT INR Sodium Potassium Chloride Carbon Dioxide Anion Gap BUN Creatinine Est Cr Clr Drug Dosing Est GFR ( Amer) Est GFR (Non-Af Amer) BUN/Creatinine Ratio Glucose POC Glucose 137 H 102 H Calcium 03/23/19 03/24/19 03/24/19 20:18 06:40 06:40 WBC RBC Hgb Hct MCV MCH MCHC RDW Std Deviation RDW Coeff of Megan Plt Count MPV PT 20.5 H INR 2.1 H Sodium 139 Potassium 3.8 Chloride 99 Carbon Dioxide 34 H Anion Gap 6.0 BUN 10 Creatinine 1.19 Est Cr Clr Drug Dosing 138.4 Est GFR ( Amer) 83.2 Est GFR (Non-Af Amer) 71.8 BUN/Creatinine Ratio 8.4 L Glucose 138 H POC Glucose 88 Calcium 8.8 03/24/19 03/24/19 06:40 07:10 WBC 9.62 RBC 4.31 L Hgb 10.7 L Hct 34.3 L MCV 79.6 L MCH 24.8 L MCHC 31.2 L RDW Std Deviation 49.3 H RDW Coeff of Megan 17.0 H Plt Count 234 MPV 10.0 PT INR Sodium Potassium Chloride Carbon Dioxide Anion Gap BUN Creatinine Est Cr Clr Drug Dosing Est GFR ( Amer) Est GFR (Non-Af Amer) BUN/Creatinine Ratio Glucose POC Glucose 180 H Calcium
[2019-03-24] MEDS ORDERED: BISACODYL 10 MG SUPP PR ONE (09:20)
--- NOTE | 2019-03-24 09:53 | Surgery Progress Note ---
Date of Service March 24, 2019 Assessment & Plan (1) Ileus: Likely secondary to chronic narcotic use Abdomen is soft, nonrigid , mildy tender in RUQ KUB showing stool burden throughout colon GI recommending Relistor injection along with Miralax 34 mg BID Plan: No surgical intervention Continue recommendations from GI for bowel regimen and Relistor Advised OOB and ambulation when possible Try to limit narcotics continue medical management Dr. Peacock has seen and examined pt, agrees with above Subjective still no bowel movements, passing some gas but not a lot + nausea but no vomiting abdominal pain about the same, but not worse has been out of bed sitting in chair and walking in room but not hallways. States he is unable to walk long distances due to his back pain and his broken right foot. Physical Exam Constitutional: WD/WN, vitals as above + morbidly obese; no acute distress Respiratory: normal respiratory effort; no respiratory distress Gastrointestinal (Abdomen): Percussion/Palpation: + abdomen tender (mild in the RUQ) and abdomen soft; no guarding and abdomen not rigid Skin: no rashes, warm and dry Psychiatric: A+Ox3, euthymic affect Results & Data Vital Signs (Past 12 Hours) Vital Signs Temp Pulse Resp BP BP Pulse Ox 03/24/19 07:55 36.6 C 85 18 120/76 97 03/24/19 04:00 36.9 C 88 22 126/55 L 91 03/23/19 23:23 36.4 C L 90 20 119/67 91 Laboratory Results 03/24/19 03/24/19 03/24/19 Range/Units 07:10 06:40 06:40 WBC 9.62 (4.8-10.8) K/uL RBC 4.31 L (4.7-6.1) M/uL Hgb 10.7 L (14.0-18.0) g/dL Hct 34.3 L (42-52) % MCV 79.6 L (80-100) fL MCH 24.8 L (25-34) pg MCHC 31.2 L (32-36) g/dL RDW Std Deviation 49.3 H (36.4-46.3) fL RDW Coeff of Megan 17.0 H (11.5-14.5) % Plt Count 234 (130-400) K/uL MPV 10.0 (7.4-10.4) fL PT (9.0-12.0) Seconds INR (0.9-1.1) Sodium 139 (136-145) mmol/L Potassium 3.8 (3.5-5.1) mmol/L Chloride 99 (98-107) mmol/L Carbon Dioxide 34 H (21-32) mmol/L Anion Gap 6.0 (3-11) BUN 10 (7-18) mg/dl Creatinine 1.19 (0.6-1.4) mg/dl Est Cr Clr Drug Dosing 138.4 ml/min Est GFR ( Amer) 83.2 Est GFR (Non-Af Amer) 71.8 BUN/Creatinine Ratio 8.4 L (10-20) Glucose 138 H (70-99) mg/dl POC Glucose 180 H (70-99) Calcium 8.8 (8.5-10.1) mg/dl 03/24/19 03/23/19 03/23/19 Range/Units 06:40 20:18 18:29 WBC (4.8-10.8) K/uL RBC (4.7-6.1) M/uL Hgb 10.4 L (14.0-18.0) g/dL Hct 33.7 L (42-52) % MCV (80-100) fL MCH (25-34) pg MCHC (32-36) g/dL RDW Std Deviation (36.4-46.3) fL RDW Coeff of Megan (11.5-14.5) % Plt Count (130-400) K/uL MPV (7.4-10.4) fL PT 20.5 H (9.0-12.0) Seconds INR 2.1 H (0.9-1.1) Sodium (136-145) mmol/L Potassium (3.5-5.1) mmol/L Chloride (98-107) mmol/L Carbon Dioxide (21-32) mmol/L Anion Gap (3-11) BUN (7-18) mg/dl Creatinine (0.6-1.4) mg/dl Est Cr Clr Drug Dosing ml/min Est GFR ( Amer) Est GFR (Non-Af Amer) BUN/Creatinine Ratio (10-20) Glucose (70-99) mg/dl POC Glucose 88 (70-99) Calcium (8.5-10.1) mg/dl 03/23/19 03/23/19 Range/Units 16:15 11:31 WBC (4.8-10.8) K/uL RBC (4.7-6.1) M/uL Hgb (14.0-18.0) g/dL Hct (42-52) % MCV (80-100) fL MCH (25-34) pg MCHC (32-36) g/dL RDW Std Deviation (36.4-46.3) fL RDW Coeff of Megan (11.5-14.5) % Plt Count (130-400) K/uL MPV (7.4-10.4) fL PT (9.0-12.0) Seconds INR (0.9-1.1) Sodium (136-145) mmol/L Potassium (3.5-5.1) mmol/L Chloride (98-107) mmol/L Carbon Dioxide (21-32) mmol/L Anion Gap (3-11) BUN (7-18) mg/dl Creatinine (0.6-1.4) mg/dl Est Cr Clr Drug Dosing ml/min Est GFR ( Amer) Est GFR (Non-Af Amer) BUN/Creatinine Ratio (10-20) Glucose (70-99) mg/dl POC Glucose 102 H 137 H (70-99) Calcium (8.5-10.1) mg/dl
[2019-03-24] MEDS: WARFARIN SOD 5 MG TAB PO SCH (16:11)
[2019-03-24] MEDS: ALBUTEROL HFA 8 GM INHALER INH PRN (17:47)
--- NOTE | 2019-03-24 18:04 | Hospitalist Progress Note ---
Date of Service March 24, 2019 Assessment & Plan (1) Acute on chronic diastolic congestive heart failure, NYHA class 3: Volume overload felt to be secondary to right heart failure, obesity hypoventilation syndrome, noncompliance. Restrict sodium and fluids, restricting sodium to 1500 mg/day and fluids to less than 2000 mL/day Continue IV lasix 60mg BID Continue Strict I's and O's Cardiology on board recommended to continue diuresing Monitor BMP while on diuretic Ileus Repeat KUB showed no change in mildly dilated gas-filled loops of small bowel within the left upper quadrant. Surgery on board Tolerated diet well Had a large BM today Continue pain control Stable (2) Hematuria: Possible secondary to trauma and complicated by supratherapeutic INR Has indwelling Fontaine catheter due to prostatic hypertrophy Urology on board recommending to changing fontaine catheter towards end of abx, course, with 3-4 days left of course. Urine is cleared Continue flomax and finasteride Monitor CBC (3) Indwelling Fontaine catheter present: UTI Urine cx grew enterococcus faecalis IV Zosyn changed to Augmentin Continue augmentin to complete a total 10 to 14 days of antibiotic Management as per urologist-change Fontaine about 2 to 3 days prior to finishing the course of antibiotic Stable (4) Chronic back pain: Has been on chronic pain medications with MS contin and oxycodone He will not be given any prescription of narcotics on discharge He has been getting Dilaudid 1 mg twice daily for increasing back pain Will d/c dilaudid IV in am Continue monitor (5) Atypical chest pain: Complains to have chest pain Has had chest pain before without any evidence of ACS Serial cardiac enzymes have been negative EKG showed no ST changes Stable (6) Elevated lactic acid level: His lactic acid was mildly elevated on admission Possible related to infection UA positive for enterococcus faecalis Blood cx no growth Zosyn changed to Augmentin Resolved (7) Pulmonary embolism: History of pulmonary embolism on Coumadin Recurrent admission with supratherapeutic INR INR was more than 10 on admission and received Vit K INR 2.1 today Continue Coumadin Will monitor for hematuria, if worsening will hold coumadin (8) Morbid obesity: Limited physical activity due to obesity Continue PT and OT evaluation and follow the recommendation (9) COPD (chronic obstructive pulmonary disease): Has more shortness of breath Does not have any COPD exacerbation (10) Depression with anxiety: Seems to be stable Continue current medications DVT px on coumadin INR 2.1 today CODE Status Full code Disposition Once stable from cardiology standpoint Subjective Pt was seen and examined Lying on the recliner chair with no distress Pt tolerated diet well Urine has been cleared He had a large BM today Denies any chest pain, palpitation, dizziness and SOB Physical Exam Physical Exam: General- No acute distress Head- atraumatic Eyes- PERRL, EOMI, ENT- oropharynx clear Neck- supple, no JVD Lungs- diminished BS Heart- regular rhythm; no murmur Abdomen- normal bowel sounds, +tender Extremities- no calf tenderness, +edema Neuro- alert, oriented x 3; PERRL, EOMI; no facial palsy; no dysarthria Skin- warm & dry Results & Data Vital Signs (Past 12 Hours) Vital Signs Temp Pulse Pulse Resp BP BP Pulse Ox 03/24/19 16:00 36.7 C 87 88 19 102/66 93 03/24/19 11:30 36.7 C 82 22 128/82 93 03/24/19 07:55 36.6 C 85 18 120/76 97 (1) Hematuria Hematuria type: unspecified type Qualified Code(s): R31.9 - Hematuria, unspecified (2) COPD (chronic obstructive pulmonary disease) COPD type: emphysema Emphysema type: unspecified Qualified Code(s): J43.9 - Emphysema, unspecified (3) Pulmonary embolism Acute cor pulmonale presence: without acute cor pulmonale Chronicity: chronic Pulmonary embolism type: unspecified Qualified Code(s): I27.82 - Chronic pulmonary embolism
[2019-03-24] MEDS: LORazepam 1 MG TAB PO PRN (23:32)
[2019-03-25] MEDS: OXYCODONE HCL IR 5 MG TAB (IMMEDIATE RELEASE) PO PRN ×5 (04:36→22:00)
[2019-03-25] MEDS: PROMETHAZINE HCL 25 MG in SODIUM CHLORIDE 0.9% 50 ML IV PRN ×3 (05:35→19:33)
[2019-03-25] MEDS: TRAMADOL HCL 50 MG TABLET PO PRN ×4 (05:35→23:21)
[2019-03-25] MEDS: ISOSORBIDE DINITRATE 10 MG TAB PO SCH ×2 (05:57→12:23)
[2019-03-25 06:15] LABS: INR 1.5 (0.9-1.1); Prothrombin Time 15.1 Seconds (9.0-12.0)
[2019-03-25 06:24] LABS: BUN Creatinine Ratio 11.4 (10-20); Calcium 9.2 mg/dl (8.5-10.1); Creatinine Clr Calc Pharmacy 143.2 ml/min; Est GFR (African American) 86.7; Est GFR (Non-African American) 74.8; Potassium 3.9 mmol/L (3.5-5.1)
[2019-03-25] MEDS: MoRPHine SULFATE CR 15 MG TABCR PO SCH ×2 (08:09→21:41)
[2019-03-25] MEDS: FUROSEMIDE 60 MG in SYRINGE 0 ML IV SCH ×2 (08:09→17:09)
[2019-03-25] MEDS: METOPROLOL SUCC 25MG EXT REL TAB PO SCH ×2 (08:10→21:47)
[2019-03-25] MEDS: DULOXETINE HCL 60 MG CAP PO SCH (08:11)
[2019-03-25] MEDS: PANTOprazole 40 MG TAB PO SCH ×2 (08:11→21:43)
[2019-03-25] MEDS: CYCLOBENZAPRINE HCL 10 MG TAB PO SCH ×2 (08:11→21:42)
[2019-03-25] MEDS: GABAPENTIN 300 MG CAP PO SCH ×3 (08:11→21:43)
[2019-03-25] MEDS: AMOXICILLIN/CLAVULANATE 875 MG TAB PO SCH ×2 (08:11→17:07)
[2019-03-25] MEDS: DOCUSATE SODIUM 100 MG CAP PO SCH ×2 (08:11→21:43)
[2019-03-25] MEDS: MAGNESIUM OXIDE 400 MG TAB PO SCH (08:11)
[2019-03-25] MEDS: FINASTERIDE 5 MG TAB PO SCH (08:12)
[2019-03-25] MEDS: POTASSIUM CHLORIDE 20 MEQ TABCR PO SCH ×2 (08:12→21:41)
[2019-03-25] MEDS: SPIRONOLACTONE 25 MG TAB PO SCH ×2 (08:12→21:42)
[2019-03-25] MEDS: NICOTINE 21 MG/24 HR TDSY TD SCH (08:12)
[2019-03-25] MEDS: TAMSULOSIN HCL 0.4 MG CAP PO SCH (08:12)
[2019-03-25] MEDS: POLYETHYLENE (MIRALAX) 17 GM PACK PO SCH ×2 (08:13→21:45)
[2019-03-25] MEDS: TIOTROPIUM BROMIDE 5 PUFF/90 MCG INH INH SCH (08:13)
[2019-03-25] MEDS: FLUTICASONE PROPIONATE NA SPR 16 GM BTL SCH (08:13)
[2019-03-25] MEDS: INSULIN ASPART 100 UNITS/ML 3 ML PEN SC SCH ×4 (08:14→22:03)
[2019-03-25] MEDS: METHYLNALTREXONE BROMIDE 12 MG/0.6 ML VIAL SQ SCH (08:20)
[2019-03-25] MEDS: HYDROmorphone INJ 1 MG/ML SYRINGE IV PRN ×2 (09:32→18:55)
--- NOTE | 2019-03-25 10:45 | Cardiology Progress Note ---
Date of Service March 25, 2019 Assessment & Plan (1) Right heart failure: Fluid balance -2.9 L in last 24 hours. Continue furosemide 60 mg IV twice daily. Kidney function electrolytes are stable. (2) Pulmonary embolism: Patient anticoagulated Coumadin due to history of some in September 2018. INR had been above goal earlier this day, and is now below goal. Continue Coumadin 7.5 mg daily, repeat INR tomorrow. Given his history of anemia, holding off on heparin bridge at present. (3) Ileus: General surgery input noted and appreciated. Subjective Chief complaint: Follow-up shortness of breath lower extremity edema Subjective: Patient sitting with his legs dangling from the bed. He is comfortable. Continues to urinate significantly, but he feels like he still has fluid. Telemetry reveals stable sinus rhythm and sinus tachycardia in the range of 85 to 110 bpm. Review of Systems Review of Systems: All systems reviewed & are unremarkable except as noted in HPI & below Physical Exam Constitutional: WD/WN, vitals as above Respiratory: Auscultation: + diminished lung sounds (Mildly decreased breath sounds at the bases); no crackles, no rales and no rhonchi Cardiovascular: RRR, no murmur, no edema Extremities: + edema (2+ bilateral lower extremity edema, however I am not sure with the patient's baseline is) Gastrointestinal (Abdomen): normal bowel sounds, soft, nontender, no hepatosplenomegaly Neurologic: PERRL, EOMI, accommodation nl, no face palsy, no dysarthria Results & Data Vital Signs (Past 12 Hours) Vital Signs Temp Pulse Pulse Resp BP Pulse Ox 03/25/19 10:05 85 18 130/73 92 03/25/19 08:30 83 03/25/19 04:00 36.8 C 87 19 113/80 91 03/25/19 00:00 36.8 C 101 H 20 130/101 H 95 03/24/19 23:16 88 Laboratory Results Coagulation 03/25/19 Range/Units 05:31 PT 15.1 H (9.0-12.0) Seconds Comprehensive Metabolic Panel 03/25/19 Range/Units 05:31 Sodium 137 (136-145) mmol/L Potassium 3.9 (3.5-5.1) mmol/L Chloride 100 (98-107) mmol/L Carbon Dioxide 32 (21-32) mmol/L BUN 13 (7-18) mg/dl Creatinine 1.15 (0.6-1.4) mg/dl Glucose 160 H (70-99) mg/dl Calcium 9.2 (8.5-10.1) mg/dl Intake and Output 03/24/19 03/25/19 03/25/19 22:59 06:59 14:59 Intake Total 546 / 1428 351 / 1428 Output Total 1952 / 4403 350 / 4403 Balance -1406 / -2975 Intake: IV / Phenergan 25 mg In Nss 50 ml @ 102 / 204 204 204 mls/hr IV Q6H PRN Rx#: [id number] Oral 444 / 1224 300 / 1224 Output: Urine/Stool Mix Urine Amount (Catheter) 1950 / 4400 350 / 4400 Lloyd/Indwelling 1950 / 4400 350 / 4400 # Bowel Movements Other: Weight 205.8 kg Most recent INR on 03/25/2019 was 1.5 Medications Administered Current Inpatient Medications Acetaminophen (Tylenol) 650 mg PO Q4H PRN PRN Reason: Pain or Fever Stop: 04/19/19 03:15 Albuterol (Duoneb) 3 ml INH Q4H PRN PRN Reason: Shortness Of Breath Or Wheezing Stop: 04/19/19 03:15 Albuterol (Ventolin Hfa) 2 puffs INH Q4H PRN PRN Reason: Wheezing Stop: 04/19/19 03:15 Last Admin: 03/24/19 17:47 Dose: 2 puffs Documented by: Amoxicillin/Clavulanate Potassium (Augmentin 875mg) 1 tab PO BIDM [facility] Stop: 04/01/19 16:59 Last Admin: 03/25/19 08:11 Dose: 1 tab Documented by: Cyclobenzaprine HCl (Flexeril) 10 mg PO BID [facility] Stop: 04/19/19 08:59 Last Admin: 03/25/19 08:11 Dose: 10 mg Documented by: Docusate Sodium (Colace) 100 mg PO BID [facility] Stop: 04/19/19 08:59 Last Admin: 03/25/19 08:11 Dose: 100 mg Documented by: Duloxetine HCl (Cymbalta) 60 mg PO QAM [facility] Stop: 04/19/19 08:59 Last Admin: 03/25/19 08:11 Dose: 60 mg Documented by: Finasteride (Proscar) 5 mg PO QAM [facility] Stop: 04/19/19 08:59 Last Admin: 03/25/19 08:12 Dose: 5 mg Documented by: Fluticasone Propionate (Flonase) 2 sprays NA QAM [facility] Stop: 04/19/19 08:59 Last Admin: 03/25/19 08:13 Dose: 2 sprays Documented by: Gabapentin (Neurontin) 300 mg PO TID [facility] Stop: 04/19/19 08:59 Last Admin: 03/25/19 08:11 Dose: 300 mg Documented by: Hydromorphone HCl (Dilaudid) 1 mg IV UD PRN PRN Reason: Pain Stop: 04/08/19 08:56 Last Admin: 03/25/19 09:32 Dose: 1 mg Documented by: Hydroxyzine HCl (Vistaril) 25 mg PO QID PRN PRN Reason: Anxiety Stop: 04/19/19 03:15 Promethazine HCl 25 mg/ Sodium (Chloride) 51 mls @ 204 mls/hr IV Q6H PRN PRN Reason: Nausea And Vomiting Stop: 04/19/19 16:04 Last Infusion: 03/25/19 06:00 Dose: Infused Documented by: Furosemide 60 mg/ Syringe 6 mls @ 4 mls/min IV BID17 [facility] Stop: 04/21/19 16:59 Last Admin: 03/25/19 08:09 Dose: 4 mls/min Documented by: Insulin Aspart (Novolog Flexpen) 0 units SC ACHS [facility] Stop: 04/19/19 16:29 Last Admin: 03/25/19 08:14 Dose: 22 units Documented by: Isosorbide Dinitrate (Isordil) 10 mg PO BID@0700,1200 [facility] Stop: 04/19/19 06:59 Last Admin: 03/25/19 05:57 Dose: 10 mg Documented by: Lorazepam (Ativan) 1 mg PO TID PRN PRN Reason: Anxiety Stop: 04/19/19 03:15 Last Admin: 03/24/19 23:32 Dose: 1 mg Documented by: Magnesium Oxide (Mag-Ox) [facility] [place] Stop: 04/19/19 08:59 Last Admin: 03/25/19 08:11 Dose: 400 mg Documented by: Methylnaltrexone [place] (Relistor) 12 mg SQ QDB [facility] Stop: 04/24/19 07:29 Last Admin: 03/25/19 08:20 Dose: Not Given Documented by: Metoprolol Succinate (Toprol Xl) 25 mg PO BID [facility] Stop: 04/19/19 08:59 Last Admin: 03/25/19 08:10 Dose: 25 mg Documented by: Miscellaneous (Remove Nicoderm Patch) 1 ea N/A HS [facility] Stop: 04/21/19 20:59 Last Admin: 03/24/19 20:31 Dose: Not Given Documented by: Morphine Sulfate (Ms Contin) 15 mg PO Q12H [facility] Stop: 04/03/19 08:59 Last Admin: 03/25/19 08:09 Dose: 15 mg Documented by: Nicotine (Nicoderm Cq) 21 mg TD QAM [facility] Stop: 04/21/19 12:44 Last Admin: 03/25/19 08:12 Dose: 21 mg Documented by: Nitroglycerin (Nitrostat) 0.4 mg SL UD PRN PRN Reason: Chest Pain Stop: 04/19/19 03:15 Nystatin (Mycostatin) 1 appln EXT BID PRN PRN Reason: Rash Stop: 04/19/19 03:15 Ondansetron HCl (Zofran) 4 mg IV Q6H PRN PRN Reason: Nausea Stop: 04/19/19 03:15 Last Admin: 03/22/19 13:44 Dose: 4 mg Documented by: Oxycodone HCl (Roxicodone Immediate Rel) 15 mg PO Q4H PRN PRN Reason: Breakthrough Pain Stop: 04/03/19 03:15 Last Admin: 03/25/19 08:28 Dose: 15 mg Documented by: Pantoprazole Sodium (Protonix) 40 mg PO BID [facility] Stop: 04/19/19 20:59 Last Admin: 03/25/19 08:11 Dose: 40 mg Documented by: Polyethylene Glycol (Miralax Powder Packet) 34 gm PO BID [facility] Stop: 04/22/19 08:59 Last Admin: 03/25/19 08:13 Dose: 34 gm Documented by: Polyethylene Glycol (Miralax Powder Packet) 17 gm PO DAILY PRN PRN Reason: Constipation Stop: 04/19/19 03:15 Last Admin: 03/22/19 12:39 Dose: 17 gm Documented by: Potassium Chloride (Klor-Con M20) 40 meq PO BID [facility] Stop: 04/22/19 09:59 Last Admin: 03/25/19 08:12 Dose: 40 meq Documented by: Sodium Biphosphate/Sodium Phosphate (Fleet Enema) 133 ml NE DAILY PRN PRN Reason: Constipation Stop: 04/19/19 03:15 Last Admin: 03/22/19 20:07 Dose: 132 ml Documented by: Spironolactone (Aldactone) 50 mg PO BID [facility] Stop: 04/19/19 08:59 Last Admin: 03/25/19 08:12 Dose: 50 mg Documented by: Tamsulosin HCl (Flomax) 0.4 mg PO DAILY [facility] Stop: 04/19/19 08:59 Last Admin: 03/25/19 08:12 Dose: 0.4 mg Documented by: Tiotropium [place] (Spiriva) 1 puffs INH DAILY [facility] Stop: 04/19/19 08:59 Last Admin: 03/25/19 08:13 Dose: 1 puffs Documented by: Tramadol HCl (Ultram) 50 mg PO Q4H PRN PRN Reason: Pain Stop: 04/19/19 03:15 Last Admin: 03/25/19 10:35 Dose: 50 mg Documented by: Warfarin Sodium (Coumadin) 7.5 mg PO DAILY@1600 [facility] Stop: 04/24/19 15:59 (1) Pulmonary embolism Pulmonary embolism type: unspecified Chronicity: chronic Acute cor pulmonale presence: without acute cor pulmonale Qualified Code(s): I27.82 - Chronic pulmonary embolism
--- NOTE | 2019-03-25 10:47 | Hospitalist Progress Note ---
Date of Service March 25, 2019 Assessment & Plan (1) Acute on chronic diastolic congestive heart failure, NYHA class 3: Volume overload felt to be secondary to right heart failure, obesity hypoventilation syndrome, noncompliance. Restrict sodium and fluids, restricting sodium to 1500 mg/day and fluids to less than 2000 mL/day Continue IV lasix 60mg BID Continue Strict I's and O's Cardiology on board recommended to continue diuresing Reasonable diuresis Monitor BMP while on diuretic -stable Ileus Repeat KUB showed no change in mildly dilated gas-filled loops of small bowel within the left upper quadrant. Surgery on board -appreciate input Tolerated diet well Appreciate GI recommendation Resolved Ileus (2) Hematuria: Possible secondary to trauma and complicated by supratherapeutic INR Has indwelling Fontaine catheter due to prostatic hypertrophy Urology on board recommending to changing fontaine catheter towards end of abx, course, with 3-4 days left of course. Urine is cleared Continue flomax and finasteride Monitor CBC-Hb remains stable (3) Indwelling Fontaine catheter present: UTI Urine cx grew enterococcus faecalis IV Zosyn changed to Augmentin Continue augmentin to complete a total 10 to 14 days of antibiotic Management as per urologist-change Fontaine about 2 to 3 days prior to finishing the course of antibiotic Draing clear urine (4) Chronic back pain: Has been on chronic pain medications with MS contin and oxycodone He will not be given any prescription of narcotics on discharge He has been getting Dilaudid 1 mg twice daily for increasing back pain Patient has been worse since this morning Dilaudid has been restarted as before Will not be given any pain medications on discharge except the pain medication that he has been getting before (5) Atypical chest pain: Complains to have chest pain Has had chest pain before without any evidence of ACS Serial cardiac enzymes have been negative EKG showed no ST changes Stable (6) Elevated lactic acid level: His lactic acid was mildly elevated on admission Possible related to infection UA positive for enterococcus faecalis Blood cx no growth Zosyn changed to Augmentin Resolved (7) Pulmonary embolism: History of pulmonary embolism on Coumadin Recurrent admission with supratherapeutic INR INR was more than 10 on admission and received Vit K INR 2.1 today Continue Coumadin Will monitor for hematuria, if worsening will hold coumadin INR is subtherapeutic we will increase Coumadin to 7.5 mg daily (8) Morbid obesity: Limited physical activity due to obesity Continue PT and OT evaluation and follow the recommendation (9) COPD (chronic obstructive pulmonary disease): Has more shortness of breath Does not have any COPD exacerbation (10) Depression with anxiety: Seems to be stable Continue current medications DVT px on coumadin INR 2.1 today CODE Status Full code Disposition Once stable from cardiology standpoint Not yet stable to be discharged Subjective 03/20 Patient was seen and examined in the telemetry unit This is a 48-year-old male with past medical history significant for chronic diastolic CHF; pulmonary embolism, on Coumadin; hypertension; morbid obesity; COPD; ongoing tobacco abuse; depression; anxiety; migraines; history of recurrent admissions for CHF; and chronic pain. Recently also had ESBL UTI treated with Invanz for 4-5 days, history of BPH on Fontaine.admitted with hematuria and fluid overload with associated shortness of breath. He complains to have increasing back pain since manipulation of his right lower extremity last night Complaint shortness of breath without any desaturation Hematuria seems to be improving 03/21 Patient was seen and examined in telemetry unit He continues to have epigastric discomfort with nausea and vomiting KUB showed Ileus without any obstruction Has been n.p.o. with oral medications with sips of water Denies any other significant symptoms this morning 03/25 The patient was seen and examined in telemetry unit He has been out of bed on a chair Complains to have more pain with movement Denies any shortness of breath or chest pain His bowel has been moving Review of Systems Review of Systems: All systems reviewed and are unremarkable except as noted below Constitutional: + weakness, + weight gain and + problem reported (Increasing pain the lower back) Respiratory: no dyspnea Cardiovascular: no chest pain Gastrointestinal: Complains right lower quadrant pain. CT of the abdomen&pelvis have been negative except nephrolithiasis as before Musculoskeletal: Increasing pain in the lower back with radiation to right leg Neurologic: + generalized weakness Physical Exam Physical Exam: Minimal distress at rest and sitting on a chair outside bed Constitutional: well developed, well nourished and + morbidly obese Eyes: PERRL, conjunctivae normal, anicteric sclerae ENMT: external ear and nose normal, oropharynx normal Neck: trachea midline, no thyromegaly Respiratory: + respiratory distress (Minimal distress at rest) Auscultation: + diminished lung sounds and + crackles (Bibasilar and minimal) Cardiovascular: Rate/Rhythm: regular rate and regular rhythm Extremities: + edema (Decreased to 1+ edema bilaterally) Gastrointestinal (Abdomen): Inspection/Auscultation: + abdomen distended and normal bowel sounds Percussion/Palpation: abdomen soft; abdomen nontender Musculoskeletal: Chronic back pain Neurologic: moves all extremities Psychiatric: A+Ox3, euthymic affect Genitourinary: no CVA tenderness Lymphatic: no cervical or axillary lymphadenopathy Results & Data Vital Signs (Past 12 Hours) Vital Signs Temp Pulse Pulse Resp BP Pulse Ox 03/25/19 10:05 85 18 130/73 92 03/25/19 08:30 83 03/25/19 04:00 36.8 C 87 19 113/80 91 03/25/19 00:00 36.8 C 101 H 20 130/101 H 95 03/24/19 23:16 88 Laboratory Results [facility] [place] 03/25/19 05:31 Sodium 137 Potassium 3.9 Chloride 100 Carbon Dioxide 32 BUN 13 Creatinine 1.15 Glucose 160 H Calcium 9.2 Medications Administered Current Inpatient Medications Acetaminophen (Tylenol) 650 mg PO Q4H PRN PRN Reason: Pain or Fever Stop: 04/19/19 03:15 Albuterol (Duoneb) 3 ml INH Q4H PRN PRN Reason: Shortness Of Breath Or Wheezing Stop: 04/19/19 03:15 Albuterol (Ventolin Hfa) 2 puffs INH Q4H PRN PRN Reason: Wheezing Stop: 04/19/19 03:15 Last Admin: 03/24/19 17:47 Dose: 2 puffs Documented by: Amoxicillin/Clavulanate Potassium (Augmentin 875mg) 1 tab PO BIDM [facility] Stop: 04/01/19 16:59 Last Admin: 03/25/19 08:11 Dose: 1 tab Documented by: Cyclobenzaprine HCl (Flexeril) 10 mg PO BID [facility] Stop: 04/19/19 08:59 Last Admin: 03/25/19 08:11 Dose: 10 mg Documented by: Docusate Sodium (Colace) 100 mg PO BID [facility] Stop: 04/19/19 08:59 Last Admin: 03/25/19 08:11 Dose: 100 mg Documented by: Duloxetine HCl (Cymbalta) 60 mg PO QAM [facility] Stop: 04/19/19 08:59 Last Admin: 03/25/19 08:11 Dose: 60 mg Documented by: [facility]) [facility] [place] Stop: 04/19/19 08:59 Last Admin: 03/25/19 08:12 Dose: 5 mg Documented by: Fluticasone Propionate (Flonase) 2 sprays NA QAM [facility] Stop: 04/19/19 08:59 Last Admin: 03/25/19 08:13 Dose: 2 sprays Documented by: Gabapentin (Neurontin) 300 mg PO TID [facility] Stop: 04/19/19 08:59 Last Admin: 03/25/19 08:11 Dose: 300 mg Documented by: Hydromorphone HCl (Dilaudid) 1 mg IV UD PRN PRN Reason: Pain Stop: 04/08/19 08:56 Last Admin: 03/25/19 09:32 Dose: 1 mg Documented by: Hydroxyzine HCl (Vistaril) 25 mg PO QID PRN PRN Reason: Anxiety Stop: 04/19/19 03:15 Promethazine HCl 25 mg/ Sodium (Chloride) 51 mls @ 204 mls/hr IV Q6H PRN PRN Reason: Nausea And Vomiting Stop: 04/19/19 16:04 Last Infusion: 03/25/19 06:00 Dose: Infused Documented by: Furosemide 60 mg/ Syringe 6 mls @ 4 mls/min IV BID17 [facility] Stop: 04/21/19 16:59 Last Admin: 03/25/19 08:09 Dose: 4 mls/min Documented by: Insulin Aspart (Novolog Flexpen) 0 units SC ACHS [facility] Stop: 04/19/19 16:29 Last Admin: 03/25/19 08:14 Dose: 22 units Documented by: Isosorbide Dinitrate (Isordil) 10 mg PO BID@0700,1200 [facility] Stop: 04/19/19 06:59 Last Admin: 03/25/19 05:57 Dose: 10 mg Documented by: Lorazepam (Ativan) 1 mg PO TID PRN PRN Reason: Anxiety Stop: 04/19/19 03:15 Last Admin: 03/24/19 23:32 Dose: 1 mg Documented by: Magnesium Oxide (Mag-Ox) 400 mg PO [facility] Stop: 04/19/19 08:59 Last Admin: 03/25/19 08:11 Dose: 400 mg Documented by: Methylnaltrexone [place] (Relistor) 12 mg SQ QDB [facility] Stop: 04/24/19 07:29 Last Admin: 03/25/19 08:20 Dose: Not Given Documented by: Metoprolol Succinate (Toprol Xl) 25 mg PO BID [facility] Stop: 04/19/19 08:59 Last Admin: 03/25/19 08:10 Dose: 25 mg Documented by: Miscellaneous (Remove Nicoderm Patch) 1 ea N/A HS [facility] Stop: 04/21/19 20:59 Last Admin: 03/24/19 20:31 Dose: Not Given Documented by: Morphine Sulfate (Ms Contin) 15 mg PO Q12H [facility] Stop: 04/03/19 08:59 Last Admin: 03/25/19 08:09 Dose: 15 mg Documented by: Nicotine (Nicoderm Cq) 21 mg TD QAM [facility] Stop: 04/21/19 12:44 Last Admin: 03/25/19 08:12 Dose: 21 mg Documented by: Nitroglycerin (Nitrostat) 0.4 mg SL UD PRN PRN Reason: Chest Pain Stop: 04/19/19 03:15 Nystatin (Mycostatin) 1 appln EXT BID PRN PRN Reason: Rash Stop: 04/19/19 03:15 Ondansetron HCl (Zofran) 4 mg IV Q6H PRN PRN Reason: Nausea Stop: 04/19/19 03:15 Last Admin: 03/22/19 13:44 Dose: 4 mg Documented by: Oxycodone HCl (Roxicodone Immediate Rel) 15 mg PO Q4H PRN PRN Reason: Breakthrough Pain Stop: 04/03/19 03:15 Last Admin: 03/25/19 08:28 Dose: 15 mg Documented by: Pantoprazole Sodium (Protonix) 40 mg PO BID [facility] Stop: 04/19/19 20:59 Last Admin: 03/25/19 08:11 Dose: 40 mg Documented by: Polyethylene Glycol (Miralax Powder Packet) 34 gm PO BID [facility] Stop: 04/22/19 08:59 Last Admin: 03/25/19 08:13 Dose: 34 gm Documented by: Polyethylene Glycol (Miralax Powder Packet) 17 gm PO DAILY PRN PRN Reason: Constipation Stop: 04/19/19 03:15 Last Admin: 03/22/19 12:39 Dose: 17 gm Documented by: Potassium Chloride (Klor-Con M20) 40 meq PO BID [facility] Stop: 04/22/19 09:59 Last Admin: 03/25/19 08:12 Dose: 40 meq Documented by: Sodium Biphosphate/Sodium Phosphate (Fleet Enema) 133 ml DC DAILY PRN PRN Reason: Constipation Stop: 04/19/19 03:15 Last Admin: 03/22/19 20:07 Dose: 132 ml Documented by: Spironolactone (Aldactone) 50 mg PO BID [facility] Stop: 04/19/19 08:59 Last Admin: 03/25/19 08:12 Dose: 50 mg Documented by: Tamsulosin HCl (Flomax) 0.4 mg PO DAILY [facility] Stop: 04/19/19 08:59 Last Admin: 03/25/19 08:12 Dose: 0.4 mg Documented by: Tiotropium [place] (Spiriva) 1 puffs INH DAILY [facility] Stop: 04/19/19 08:59 Last Admin: 03/25/19 08:13 Dose: 1 puffs Documented by: Tramadol HCl (Ultram) 50 mg PO Q4H PRN PRN Reason: Pain Stop: 04/19/19 03:15 Last Admin: 03/25/19 10:35 Dose: 50 mg Documented by: Warfarin Sodium (Coumadin) 7.5 mg PO DAILY@1600 [facility] Stop: 04/24/19 15:59 (1) Hematuria Hematuria type: unspecified type Qualified Code(s): R31.9 - Hematuria, unspecified (2) Pulmonary embolism Pulmonary embolism type: unspecified Chronicity: chronic Acute cor pulmonale presence: without acute cor pulmonale Qualified Code(s): I27.82 - Chronic pulmonary embolism (3) COPD (chronic obstructive pulmonary disease) COPD type: emphysema Emphysema type: unspecified Qualified Code(s): J43.9 - Emphysema, unspecified
--- NOTE | 2019-03-25 11:42 | Progress Note ---
Date of Service March 25, 2019 Assessment & Plan (1) Ileus: had bowel movements yesterday, last pm- ileus/ constipation from narcotic use likely does not appear to have mechanical obstr- on Relistor, Miralax, colace Subjective see a/p Results & Data Vital Signs (Past 12 Hours) Vital Signs Temp Pulse Pulse Resp BP Pulse Ox 03/25/19 10:05 85 18 130/73 92 03/25/19 08:30 83 03/25/19 04:00 36.8 C 87 19 113/80 91 03/25/19 00:00 36.8 C 101 H 20 130/101 H 95
[2019-03-25] MEDS ORDERED: WARFARIN SOD 7.5 MG TAB PO SCH (16:00)
[2019-03-25] MEDS: LORazepam 1 MG TAB PO PRN (22:10)
[2019-03-26] MEDS: OXYCODONE HCL IR 5 MG TAB (IMMEDIATE RELEASE) PO PRN ×5 (01:54→19:38)
[2019-03-26] MEDS: PROMETHAZINE HCL 25 MG in SODIUM CHLORIDE 0.9% 50 ML IV PRN ×4 (01:55→21:54)
[2019-03-26 07:06] LABS: INR 1.2 (0.9-1.1); Prothrombin Time 12.5 Seconds (9.0-12.0)
[2019-03-26] MEDS: TRAMADOL HCL 50 MG TABLET PO PRN ×4 (07:22→22:36)
[2019-03-26] MEDS: ISOSORBIDE DINITRATE 10 MG TAB PO SCH ×2 (07:22→11:04)
[2019-03-26] MEDS: FUROSEMIDE 60 MG in SYRINGE 0 ML IV SCH (08:19)
[2019-03-26] MEDS: FLUTICASONE PROPIONATE NA SPR 16 GM BTL SCH (08:19)
[2019-03-26] MEDS: GABAPENTIN 300 MG CAP PO SCH ×3 (08:20→21:52)
[2019-03-26] MEDS: FINASTERIDE 5 MG TAB PO SCH (08:20)
[2019-03-26] MEDS: METOPROLOL SUCC 25MG EXT REL TAB PO SCH ×2 (08:20→21:52)
[2019-03-26] MEDS: MAGNESIUM OXIDE 400 MG TAB PO SCH (08:20)
[2019-03-26] MEDS: PANTOprazole 40 MG TAB PO SCH ×2 (08:20→21:53)
[2019-03-26] MEDS: DULOXETINE HCL 60 MG CAP PO SCH (08:20)
[2019-03-26] MEDS: AMOXICILLIN/CLAVULANATE 875 MG TAB PO SCH ×2 (08:20→17:04)
[2019-03-26] MEDS: DOCUSATE SODIUM 100 MG CAP PO SCH ×2 (08:20→21:52)
[2019-03-26] MEDS: TAMSULOSIN HCL 0.4 MG CAP PO SCH (08:21)
[2019-03-26] MEDS: SPIRONOLACTONE 25 MG TAB PO SCH ×2 (08:21→21:53)
[2019-03-26] MEDS: CYCLOBENZAPRINE HCL 10 MG TAB PO SCH ×2 (08:21→21:52)
[2019-03-26] MEDS: POTASSIUM CHLORIDE 20 MEQ TABCR PO SCH ×2 (08:21→21:51)
[2019-03-26] MEDS: NICOTINE 21 MG/24 HR TDSY TD SCH (08:22)
[2019-03-26] MEDS: POLYETHYLENE (MIRALAX) 17 GM PACK PO SCH ×2 (08:22→21:51)
[2019-03-26] MEDS: METHYLNALTREXONE BROMIDE 12 MG/0.6 ML VIAL SQ SCH (08:23)
[2019-03-26] MEDS: MoRPHine SULFATE CR 15 MG TABCR PO SCH ×2 (08:29→21:47)
[2019-03-26] MEDS: INSULIN ASPART 100 UNITS/ML 3 ML PEN SC SCH ×4 (08:36→21:27)
--- NOTE | 2019-03-26 09:35 | Progress Note ---
Date of Service March 26, 2019 Assessment & Plan (1) Constipated: bowels moving refusing Relistor tolerating diet does not require surgical intervention Results & Data Vital Signs (Past 12 Hours) Vital Signs Temp Pulse Pulse Resp BP Pulse Ox 03/26/19 08:22 36.6 C 88 21 104/63 90 03/26/19 04:00 37.0 C 61 20 112/90 93 03/25/19 23:20 36.9 C 88 18 96/66 L 90
[2019-03-26] MEDS: TIOTROPIUM BROMIDE 5 PUFF/90 MCG INH INH SCH (10:01)
[2019-03-26] MEDS: HYDROmorphone INJ 1 MG/ML SYRINGE IV PRN ×2 (10:02→20:30)
--- NOTE | 2019-03-26 10:51 | XRay Report ---
XR chest 2V routine HISTORY: 48 years-old Male chf acute shortness of breath COMPARISON: Chest radiograph 03/19/2019 TECHNIQUE: PA and lateral views of the chest FINDINGS: Cardiac silhouette is enlarged, unchanged. Mild pulmonary vascular congestion without overt pulmonary edema. Suggestion of trace pleural effusions. No pneumothorax. Previously noted ill-defined right up per lung lesion is not definitively seen. Degenerative changes of the shoulders and spine. IMPRESSION: 1. Cardiomegaly with pulmonary vascular congestion. 2. Trace pleural effusions. 3. Previously noted ill-defined opacity of the right upper lung is not identified on today's study. The above report was generated using voice recognition software. It may contain grammatical, syntax o r spelling errors. Electronically signed by: Kem Apodaca M.D. 03/26/2019 10:50 AM
--- NOTE | 2019-03-26 12:13 | Cardiology Progress Note ---
Date of Service March 26, 2019 Assessment & Plan (1) Right heart failure: Patient still with significant lower extremity edema, upper extremity edema. He has been hospitalized on multiple occasions with deferring complaints, but volume overload has been a persistent problem despite multiple regimens of oral and IV diuretic therapy. He received 60 mg of IV furosemide this morning. 3.9 L of urine output noted over last 24 hours with net loss of -2.2 L. At present, will transition to a furosemide drip, starting with 10 mg/h. Update chemistry panel now and in a.m. Continue spironolactone 50 mg twice daily. Continue Lloyd catheter. Discussed with . (2) Pulmonary embolism: Patient diagnosed with pulmonary embolism September,. INR is below goal 1.2. Continue Coumadin reloading 10 mg today. Repeat INR tomorrow. If INR remains below goal, will need to consider heparin infusion as a bridge. Subjective Chief complaint: Follow-up edema and shortness of breath Subjective: Patient states that he feels poorly. He feels swollen in his legs, and still feels short of breath. Abdominal discomfort does not appear to be a current complaint. Telemetry reveals stable sinus rhythm in the 80 to 90 bpm range. Review of Systems Review of Systems: All systems reviewed & are unremarkable except as noted in HPI & below Physical Exam Physical Exam: Temp Pulse Resp BP Pulse Ox 36.7 C 88 19 111/77 94 03/26/19 11:47 03/26/19 11:47 03/26/19 11:47 03/26/19 11:47 03/26/19 11:47 Constitutional: + obese; no acute distress Chronically ill in appearance without acute distress Respiratory: Auscultation: + diminished lung sounds (Mildly decreased breath sounds bilaterally at the bases); no crackles, no rales, no rhonchi and no wheezes Cardiovascular: RRR, no murmur, no edema Extremities: + edema (2+ bilateral lower extremity edema) Gastrointestinal (Abdomen): Abdomen nontender Neurologic: PERRL, EOMI, accommodation nl, no face palsy, no dysarthria Results & Data Vital Signs (Past 12 Hours) Vital Signs Temp Pulse Pulse Resp BP Pulse Ox 03/26/19 11:47 36.7 C 88 19 111/77 94 03/26/19 08:22 36.6 C 88 21 104/63 90 03/26/19 08:00 85 03/26/19 04:00 37.0 C 61 20 112/90 93 (1) Pulmonary embolism Pulmonary embolism type: unspecified Chronicity: chronic Acute cor pulmonale presence: without acute cor pulmonale Qualified Code(s): I27.82 - Chronic pulmonary embolism
[2019-03-26] MEDS: FUROSEMIDE 100 MG in DEXTROSE 5% 90 ML IV SCH ×2 (12:27→21:46)
[2019-03-26 12:54] LABS: Calcium 9.6 mg/dl (8.5-10.1); Est GFR (African American) 77.7; Potassium 4.4 mmol/L (3.5-5.1)
--- NOTE | 2019-03-26 13:46 | Hospitalist Progress Note ---
Date of Service March 26, 2019 Assessment & Plan (1) Acute on chronic diastolic congestive heart failure, NYHA class 3: Volume overload felt to be secondary to right heart failure, obesity hypoventilation syndrome, noncompliance. Restrict sodium and fluids, restricting sodium to 1500 mg/day and fluids to less than 2000 mL/day Continue IV lasix 60mg BID Continue Strict I's and O's Cardiology on board recommended to continue diuresing Edema of the legs and fluid overload have not been any better since admission Discussed with associate programmer and will be started 1 intravenous Lasix drip Likely to stay in the hospital for a few more days Monitor PRP and electrolytes Ileus Repeat KUB showed no change in mildly dilated gas-filled loops of small bowel within the left upper quadrant. Surgery on board -appreciate input Tolerated diet well Appreciate GI recommendation Resolved Ileus (2) Hematuria: Possible secondary to trauma and complicated by supratherapeutic INR Has indwelling Fontaine catheter due to prostatic hypertrophy Urology on board recommending to changing fontanie catheter towards end of abx, course, with 3-4 days left of course. Urine is cleared Continue flomax and finasteride Monitor CBC-Hb remains stable No more hematuria (3) Indwelling Fontaine catheter present: UTI Urine cx grew enterococcus faecalis IV Zosyn changed to Augmentin Continue augmentin to complete a total 10 to 14 days of antibiotic Management as per urologist-change Fontaine about 2 to 3 days prior to finishing the course of antibiotic Draining clear urine (4) Chronic back pain: Has been on chronic pain medications with MS contin and oxycodone He will not be given any prescription of narcotics on discharge He has been getting Dilaudid 1 mg twice daily for increasing back pain Patient has been worse since this morning Dilaudid has been restarted as before Will not be given any pain medications on discharge except the pain medication that he has been getting before Current regimen of narcotics and pain medications seems to be controlling his pain (5) Atypical chest pain: Complains to have chest pain Has had chest pain before without any evidence of ACS Serial cardiac enzymes have been negative EKG showed no ST changes Stable (6) Elevated lactic acid level: His lactic acid was mildly elevated on admission Possible related to infection UA positive for enterococcus faecalis Blood cx no growth Zosyn changed to Augmentin Resolved (7) Pulmonary embolism: History of pulmonary embolism on Coumadin Recurrent admission with supratherapeutic INR INR was more than 10 on admission and received Vit K INR 2.1 today Continue Coumadin Will monitor for hematuria, if worsening will hold coumadin INR is subtherapeutic we will increase Coumadin to 7.5 mg daily INR went down to 1.2 today and the Coumadin dose has been increased to 10 mg Augmentin will not decrease the INR rather it will increase Monitor INR closely (8) Morbid obesity: Limited physical activity due to obesity Continue PT and OT evaluation and follow the recommendation (9) COPD (chronic obstructive pulmonary disease): Has more shortness of breath Does not have any COPD exacerbation (10) Depression with anxiety: Seems to be stable Continue current medications DVT px on coumadin INR 2.1 today CODE Status Full code Disposition Has been on intravenous Lasix infusion now Not yet stable to be discharged Subjective 03/20 Patient was seen and examined in the telemetry unit This is a 48-year-old male with past medical history significant for chronic diastolic CHF; pulmonary embolism, on Coumadin; hypertension; morbid obesity; COPD; ongoing tobacco abuse; depression; anxiety; migraines; history of recurrent admissions for CHF; and chronic pain. Recently also had ESBL UTI treated with Invanz for 4-5 days, history of BPH on Fontaine.admitted with hematuria and fluid overload with associ ated shortness of breath. He complains to have increasing back pain since manipulation of his right lower extremity last night Complaint shortness of breath without any desaturation Hematuria seems to be improving 03/21 Patient was seen and examined in telemetry unit He continues to have epigastric discomfort with nausea and vomiting KUB showed Ileus without any obstruction Has been n.p.o. with oral medications with sips of water Denies any other significant symptoms this morning 03/25 The patient was seen and examined in telemetry unit He has been out of bed on a chair Complains to have more pain with movement Denies any shortness of breath or chest pain His bowel has been moving 03/26 The patient was seen and examined in telemetry unit He has been complaining of ongoing bloating due to fluid overload His pain seems to be under control Review of Systems Review of Systems: All systems reviewed and are unremarkable except as noted below Constitutional: + weakness, + weight gain and + problem reported (Increasing pain the lower back) Respiratory: no cough and no dyspnea Cardiovascular: + edema (Bilateral lower extremity edema 1-2+) Gastrointestinal: Complains right lower quadrant pain. CT of the abdomen&pelvis have been negative except nephrolithiasis as before Musculoskeletal: Increasing pain in the lower back with radiation to right leg Neurologic: + generalized weakness Physical Exam Physical Exam: No distress at rest Constitutional: well developed, well nourished and + morbidly obese Eyes: PERRL, conjunctivae normal, anicteric sclerae ENMT: external ear and nose normal, oropharynx normal Neck: trachea midline, no thyromegaly Respiratory: + respiratory distress (Minimal distress at rest) Auscultation: + diminished lung sounds and + crackles (Bibasilar and minimal) Cardiovascular: Rate/Rhythm: regular rate and regular rhythm Extremities: + edema (Decreased to 1+ edema bilaterally) Gastrointestinal (Abdomen): Inspection/Auscultation: + abdomen distended and normal bowel sounds Percussion/Palpation: abdomen soft; abdomen nontender Musculoskeletal: No acute arthritis in any of the joints Neurologic: moves all extremities Psychiatric: A+Ox3, euthymic affect Genitourinary: no CVA tenderness Has been doing Fontaine catheter Lymphatic: no cervical or axillary lymphadenopathy Results & Data Vital Signs (Past 12 Hours) Vital Signs Temp Pulse Pulse Resp BP Pulse Ox 03/26/19 11:47 36.7 C 88 19 111/77 94 03/26/19 08:22 36.6 C 88 21 104/63 90 03/26/19 08:00 85 03/26/19 04:00 37.0 C 61 20 112/90 93 Laboratory Results [facility] 03/26/19 12:17 Sodium 138 Potassium 4.4 Chloride 101 Carbon Dioxide 32 BUN 14 Creatinine 1.26 Glucose 110 H Calcium 9.6 Medications Administered Current Inpatient Medications Acetaminophen (Tylenol) 650 mg PO Q4H PRN PRN Reason: Pain or Fever Stop: 04/19/19 03:15 Albuterol (Duoneb) 3 ml INH Q4H PRN PRN Reason: Shortness Of Breath Or Wheezing Stop: 04/19/19 03:15 Albuterol (Ventolin Hfa) 2 puffs INH Q4H PRN PRN Reason: Wheezing Stop: 04/19/19 03:15 Last Admin: 03/24/19 17:47 Dose: 2 puffs Documented by: Amoxicillin/Clavulanate Potassium (Augmentin 875mg) 1 tab PO BIDM [facility] Stop: 04/01/19 16:59 Last Admin: 03/26/19 08:20 Dose: 1 tab Documented by: Cyclobenzaprine HCl (Flexeril) 10 mg PO BID [facility] Stop: 04/19/19 08:59 Last Admin: 03/26/19 08:21 Dose: 10 mg Documented by: Docusate Sodium (Colace) 100 mg PO BID [facility] Stop: 04/19/19 08:59 Last Admin: 03/26/19 08:20 Dose: 100 mg Documented by: Duloxetine HCl (Cymbalta) 60 mg PO [facility] Stop: 04/19/19 08:59 Last Admin: 03/26/19 08:20 Dose: 60 mg Documented by: [facility]) [facility] [place]: 04/19/19 08:59 Last Admin: 03/26/19 08:20 Dose: 5 mg Documented by: Fluticasone Propionate (Flonase) 2 sprays NA [facility] Stop: 04/19/19 08:59 Last Admin: 03/26/19 08:19 Dose: 2 sprays Documented by: Gabapentin (Neurontin) 300 mg PO TID [facility] Stop: 04/19/19 08:59 Last Admin: 03/26/19 08:20 Dose: 300 mg Documented by: Hydromorphone HCl (Dilaudid) 1 mg IV UD PRN PRN Reason: Pain Stop: 04/08/19 08:56 Last Admin: 03/26/19 10:02 Dose: 1 mg Documented by: Hydroxyzine HCl (Vistaril) 25 mg PO QID PRN PRN Reason: Anxiety Stop: 04/19/19 03:15 Furosemide 100 mg/ Dextrose 100 mls @ 10 mls/hr IV .Q10H [facility] Stop: 04/25/19 12:14 Last Admin: 03/26/19 12:27 Dose: 10 mg/hr, 10 mls/hr Documented by: Promethazine HCl 25 mg/ Sodium (Chloride) 51 mls @ 204 mls/hr IV Q6H PRN PRN Reason: Nausea And Vomiting Stop: 04/19/19 16:04 Last Infusion: 03/26/19 08:33 Dose: Infused Documented by: Insulin Aspart (Novolog Flexpen) 0 units SC ACHS [facility] Stop: 04/19/19 16:29 Last Admin: 03/26/19 12:29 Dose: 8 units Documented by: Isosorbide Dinitrate (Isordil) 10 mg PO BID@0700,1200 [facility] Stop: 04/19/19 06:59 Last Admin: 03/26/19 11:04 Dose: 10 mg Documented by: Lorazepam (Ativan) 1 mg PO TID PRN PRN Reason: Anxiety Stop: 04/19/19 03:15 Last Admin: 03/25/19 22:10 Dose: 1 mg Documented by: Magnesium Oxide (Mag-Ox) 400 mg PO QAM [facility] Stop: 04/19/19 08:59 Last Admin: 03/26/19 08:20 Dose: 400 mg Documented by: Methylnaltrexone [place] (Relistor) 12 mg SQ QDB [facility] Stop: 04/24/19 07:29 Last Admin: 03/26/19 08:23 Dose: Not Given Documented by: Metoprolol Succinate (Toprol Xl) 25 mg PO BID [facility] Stop: 04/19/19 08:59 Last Admin: 03/26/19 08:20 Dose: 25 mg Documented by: Miscellaneous (Remove Nicoderm Patch) 1 ea N/A HS [facility] Stop: 04/21/19 20:59 Last Admin: 03/25/19 21:46 Dose: Not Given Documented by: Morphine Sulfate (Ms Contin) 15 mg PO Q12H [facility] Stop: 04/03/19 08:59 Last Admin: 03/26/19 08:29 Dose: 15 mg Documented by: Nicotine ([place]oderm Cq) [facility] [place] [facility] [place]: 04/21/19 12:44 Last Admin: 03/26/19 08:22 Dose: 21 mg Documented by: Nitroglycerin (Nitrostat) 0.4 mg SL UD PRN PRN Reason: Chest Pain Stop: 04/19/19 03:15 Nystatin (Mycostatin) 1 appln EXT BID PRN PRN Reason: Rash Stop: 04/19/19 03:15 Ondansetron HCl (Zofran) 4 mg IV Q6H PRN PRN Reason: Nausea Stop: 04/19/19 03:15 Last Admin: 03/22/19 13:44 Dose: 4 mg Documented by: Oxycodone HCl (Roxicodone Immediate Rel) 15 mg PO Q4H PRN PRN Reason: Breakthrough Pain Stop: 04/03/19 03:15 Last Admin: 03/26/19 11:05 Dose: 15 mg Documented by: Pantoprazole Sodium (Protonix) 40 mg PO BID [facility] Stop: 04/19/19 20:59 Last Admin: 03/26/19 08:20 Dose: 40 mg Documented by: Polyethylene Glycol (Miralax Powder Packet) 34 gm PO BID [facility] Stop: 04/22/19 08:59 Last Admin: 03/26/19 08:22 Dose: 34 gm Documented by: Polyethylene Glycol (Miralax Powder Packet) 17 gm PO DAILY PRN PRN Reason: Constipation Stop: 04/19/19 03:15 Last Admin: 03/22/19 12:39 Dose: 17 gm Documented by: Potassium Chloride (Klor-Con M20) 40 meq PO BID [facility] Stop: 04/22/19 09:59 Last Admin: 03/26/19 08:21 Dose: 40 meq Documented by: Sodium Biphosphate/Sodium Phosphate (Fleet Enema) 133 ml CO DAILY PRN PRN Reason: Constipation Stop: 04/19/19 03:15 Last Admin: 03/22/19 20:07 Dose: 132 ml Documented by: Spironolactone (Aldactone) 50 mg PO BID [facility] Stop: 04/19/19 08:59 Last Admin: 03/26/19 08:21 Dose: 50 mg Documented by: Tamsulosin HCl (Flomax) 0.4 mg PO DAILY [facility] Stop: 04/19/19 08:59 Last Admin: 03/26/19 08:21 Dose: 0.4 mg Documented by: Tiotropium [place] (Spiriva) 1 puffs INH DAILY [facility] Stop: 04/19/19 08:59 Last Admin: 03/26/19 10:01 Dose: 1 puffs Documented by: Tramadol HCl (Ultram) 50 mg PO Q4H PRN PRN Reason: Pain Stop: 04/19/19 03:15 Last Admin: 03/26/19 12:27 Dose: 50 mg Documented by: Warfarin Sodium (Coumadin) 10 mg PO DAILY@1600 [facility] Stop: 04/25/19 15:59 (1) Hematuria Hematuria type: unspecified type Qualified Code(s): R31.9 - Hematuria, unspecified (2) Pulmonary embolism Pulmonary embolism type: unspecified Chronicity: chronic Acute cor pulmonale presence: without acute cor pulmonale Qualified Code(s): I27.82 - Chronic pulmonary embolism (3) COPD (chronic obstructive pulmonary disease) COPD type: emphysema Emphysema type: unspecified Qualified Code(s): J43.9 - Emphysema, unspecified
[2019-03-26] MEDS: WARFARIN SOD 10 MG TAB PO SCH (15:20)
[2019-03-26] MEDS: LORazepam 1 MG TAB PO PRN (21:50)
[2019-03-27] MEDS: OXYCODONE HCL IR 5 MG TAB (IMMEDIATE RELEASE) PO PRN ×5 (01:06→23:45)
[2019-03-27] MEDS: TRAMADOL HCL 50 MG TABLET PO PRN ×3 (04:08→19:44)
[2019-03-27 06:10] LABS: Basophils # (auto) 0.02 K/uL (0-0.2); Basophils % (auto) 0.2 %; Eosinophils # (auto) 0.61 K/uL (0-0.5); Eosinophils % (auto) 5.6 %; Hematocrit (blood only) 34.2 % (42-52); Hemoglobin 10.5 g/dL (14.0-18.0); Immature Granulocytes # (auto) 0.05 K/uL (0.00-0.02); Immature Granulocytes % (auto) 0.5 %; Lymphocytes # (auto) 2.08 K/uL (1.2-3.4); Lymphocytes % (auto) 19.3 %; Mean Corpuscular Hgb Conc 30.7 g/dL (32-36); Mean Corpuscular Volume 77.4 fL (80-100); Mean Platelet Volume 9.9 fL (7.4-10.4); Monocytes # (auto) 0.88 K/uL (0.11-0.59); Monocytes % (auto) 8.1 %; Neutrophils # (auto) 7.16 K/uL (1.4-6.5); Neutrophils % (auto) 66.3 %; Platelet Count 284 K/uL (130-400); RDW Coefficient of Variation 17.5 % (11.5-14.5); RDW Standard Deviation 50.1 fL (36.4-46.3); Red Blood Count 4.42 M/uL (4.7-6.1)
[2019-03-27 06:24] LABS: INR 1.2 (0.9-1.1); Prothrombin Time 11.9 Seconds (9.0-12.0)
[2019-03-27 06:41] LABS: BUN Creatinine Ratio 13.7 (10-20); Calcium 9.2 mg/dl (8.5-10.1); Creatinine Clr Calc Pharmacy 124.4 ml/min; Est GFR (African American) 73.4; Est GFR (Non-African American) 63.3; Magnesium 2.1 mg/dl (1.8-2.4); Phosphorus 3.9 mg/dl (2.5-4.9); Potassium 3.7 mmol/L (3.5-5.1)
[2019-03-27] MEDS: PROMETHAZINE HCL 25 MG in SODIUM CHLORIDE 0.9% 50 ML IV PRN ×2 (08:33→16:10)
[2019-03-27] MEDS: HYDROmorphone INJ 1 MG/ML SYRINGE IV PRN ×2 (08:34→15:40)
[2019-03-27] MEDS: ISOSORBIDE DINITRATE 10 MG TAB PO SCH ×2 (08:49→13:18)
[2019-03-27] MEDS: MoRPHine SULFATE CR 15 MG TABCR PO SCH ×2 (08:49→20:42)
[2019-03-27] MEDS: TIOTROPIUM BROMIDE 5 PUFF/90 MCG INH INH SCH (08:49)
[2019-03-27] MEDS: DOCUSATE SODIUM 100 MG CAP PO SCH ×2 (08:49→20:38)
[2019-03-27] MEDS: SPIRONOLACTONE 25 MG TAB PO SCH ×2 (08:49→20:37)
[2019-03-27] MEDS: PANTOprazole 40 MG TAB PO SCH ×2 (08:49→20:38)
[2019-03-27] MEDS: TAMSULOSIN HCL 0.4 MG CAP PO SCH (08:49)
[2019-03-27] MEDS: AMOXICILLIN/CLAVULANATE 875 MG TAB PO SCH ×2 (08:49→16:10)
[2019-03-27] MEDS: FLUTICASONE PROPIONATE NA SPR 16 GM BTL SCH (08:50)
[2019-03-27] MEDS: MAGNESIUM OXIDE 400 MG TAB PO SCH (08:50)
[2019-03-27] MEDS: POTASSIUM CHLORIDE 20 MEQ TABCR PO SCH ×3 (08:50→20:37)
[2019-03-27] MEDS: FINASTERIDE 5 MG TAB PO SCH (08:50)
[2019-03-27] MEDS: GABAPENTIN 300 MG CAP PO SCH ×3 (08:50→20:38)
[2019-03-27] MEDS: CYCLOBENZAPRINE HCL 10 MG TAB PO SCH ×2 (08:51→20:37)
[2019-03-27] MEDS: FUROSEMIDE 100 MG in DEXTROSE 5% 90 ML IV SCH ×3 (08:51→22:24)
[2019-03-27] MEDS: DULOXETINE HCL 60 MG CAP PO SCH (08:51)
[2019-03-27] MEDS: NICOTINE 21 MG/24 HR TDSY TD SCH (08:52)
[2019-03-27] MEDS: METOPROLOL SUCC 25MG EXT REL TAB PO SCH ×2 (08:53→20:38)
[2019-03-27] MEDS: POLYETHYLENE (MIRALAX) 17 GM PACK PO SCH ×2 (08:54→20:36)
[2019-03-27] MEDS: INSULIN ASPART 100 UNITS/ML 3 ML PEN SC SCH ×4 (08:57→20:39)
[2019-03-27] MEDS ORDERED: Heparin IV Standard *NO* Bolus IV SCH (10:48)
--- NOTE | 2019-03-27 10:54 | Cardiology Progress Note ---
Date of Service March 27, 2019 Assessment & Plan (1) Right heart failure: Patient transition to furosemide infusion at 10 mg/h on 03/27/2019 with 6.7 L of urine output noted in the next 24 hours, net loss 4.5 L. Creatinine remains stable, potassium 3.7 despite spironolactone and potassium chloride 40 mg twice daily. Increase furosemide infusion to 50 mg/h. Continues prolactin. Increase potassium chloride to 40 mg 3 times daily. Electrolytes. (2) Indwelling Lloyd catheter present: Tolerating Lloyd catheter. (3) Pulmonary embolism: Patient has history of pulmonary embolism diagnosed in September 2018 after he had been hospitalized on multiple occasions. He certainly is at risk for repeat venous thromboembolic event due to hospitalization, stasis. His INR is subtherapeutic, and has remained subtherapeutic for the last few days. Continue Coumadin, dose increased to 10 mg daily yesterday. Start heparin infusion. He does have a low MCV, and mild anemia, but I think it is critical to proceed with maneuvers to prevent recurrent pulmonary embolism. Subjective Chief complaint: Lower extremity edema, generalized fatigue Subjective: Patient still complains of generalized tiredness. Telemetry reveals sinus rhythm 80 bpm range. Review of Systems Review of Systems: All systems reviewed & are unremarkable except as noted in HPI & below Physical Exam Physical Exam: Temp Pulse Resp BP Pulse Ox 37 C 89 18 101/61 92 03/27/19 07:59 03/27/19 07:59 03/27/19 07:59 03/27/19 07:59 03/27/19 07:59 Constitutional: + morbidly obese; no acute distress Respiratory: normal respiratory effort, lungs clear to auscultation Cardiovascular: RRR, no murmur, no edema Extremities: + edema (2+ lower extremity edema) Gastrointestinal (Abdomen): normal bowel sounds, soft, nontender, no hepatosplenomegaly Skin: + skin tightening Mild erythema noted over the anterior tibia Neurologic: PERRL, EOMI, accommodation nl, no face palsy, no dysarthria Results & Data Laboratory Results Hemoglobin 10.5 MCV 77.4 Blood count 284 Sodium 138 Potassium 3.7 Chloride 99 CO2 33 BUN 18 Creatinine 1.32 Medications Administered Current Inpatient Medications Acetaminophen (Tylenol) 650 mg PO Q4H PRN PRN Reason: Pain or Fever Stop: 04/19/19 03:15 Albuterol (Duoneb) 3 ml INH Q4H PRN PRN Reason: Shortness Of Breath Or Wheezing Stop: 04/19/19 03:15 Albuterol (Ventolin Hfa) 2 puffs INH Q4H PRN PRN Reason: Wheezing Stop: 04/19/19 03:15 Last Admin: 03/24/19 17:47 Dose: 2 puffs Documented by: Amoxicillin/Clavulanate Potassium (Augmentin 875mg) 1 tab PO BIDM [facility] Stop: 04/01/19 16:59 Last Admin: 03/27/19 08:49 Dose: 1 tab Documented by: Cyclobenzaprine HCl (Flexeril) 10 mg PO BID [facility] Stop: 04/19/19 08:59 Last Admin: 03/27/19 08:51 Dose: 10 mg Documented by: Docusate Sodium (Colace) 100 mg PO BID [facility] Stop: 04/19/19 08:59 Last Admin: 03/27/19 08:49 Dose: 100 mg Documented by: Duloxetine HCl (Cymbalta) 60 mg PO QAM [facility] Stop: 04/19/19 08:59 Last Admin: 03/27/19 08:51 Dose: 60 mg Documented by: Finasteride (Proscar) 5 mg PO QAM [facility] Stop: 04/19/19 08:59 Last Admin: 03/27/19 08:50 Dose: 5 mg Documented by: Fluticasone Propionate (Flonase) 2 sprays NA QAM [facility] Stop: 04/19/19 08:59 Last Admin: 03/27/19 08:50 Dose: 2 sprays Documented by: Gabapentin (Neurontin) 300 mg PO TID [facility] Stop: 04/19/19 08:59 Last Admin: 03/27/19 08:50 Dose: 300 mg Documented by: Heparin Sodium/Dextrose () 1 ea IV ONE ONE; Protocol Stop: 03/27/19 10:49 Hydromorphone HCl (Dilaudid) 1 mg IV UD PRN PRN Reason: Pain Stop: 04/08/19 08:56 Last Admin: 03/27/19 08:34 Dose: 1 mg Documented by: Hydroxyzine HCl (Vistaril) 25 mg PO QID PRN PRN Reason: Anxiety Stop: 04/19/19 03:15 Furosemide 100 mg/ Dextrose 100 mls @ 15 mls/hr IV .Q6H40M [facility] Stop: 04/25/19 12:14 Last Admin: 03/27/19 08:51 Dose: 10 mg/hr, 10 mls/hr Documented by: Promethazine HCl 25 mg/ Sodium (Chloride) 51 mls @ 204 mls/hr IV Q6H PRN PRN Reason: Nausea And Vomiting Stop: 04/19/19 16:04 Last Infusion: 03/27/19 09:17 Dose: Infused Documented by: Insulin Aspart (Novolog Flexpen) 0 units SC ACHS [facility] Stop: 04/19/19 16:29 Last Admin: 03/27/19 08:57 Dose: 8 units Documented by: Isosorbide Dinitrate (Isordil) 10 mg PO BID@0700,1200 [facility] Stop: 04/19/19 06:59 Last Admin: 03/27/19 08:49 Dose: 10 mg Documented by: Lorazepam (Ativan) 1 mg PO TID PRN PRN Reason: Anxiety Stop: 04/19/19 03:15 Last Admin: 03/26/19 21:50 Dose: 1 mg Documented by: Magnesium Oxide (Mag-Ox) 400 mg PO QAM [facility] Stop: 04/19/19 08:59 Last Admin: 03/27/19 08:50 Dose: 400 mg Documented by: Methylnaltrexone [place] (Relistor) 12 mg SQ QDB [facility] Stop: 04/24/19 07:29 Last Admin: 03/26/19 08:23 Dose: Not Given Documented by: Metoprolol Succinate (Toprol Xl) 25 mg PO BID [facility] Stop: 04/19/19 08:59 Last Admin: 03/27/19 08:53 Dose: 25 mg Documented by: Miscellaneous (Remove Nicoderm Patch) 1 ea N/A HS [facility] Stop: 04/21/19 20:59 Last Admin: 03/26/19 21:28 Dose: Not Given Documented by: Morphine Sulfate (Ms Contin) 15 mg PO Q12H [facility] Stop: 04/03/19 08:59 Last Admin: 03/27/19 08:49 Dose: 15 mg Documented by: Nicotine (Nicoderm Cq) 21 mg TD QAM [facility] Stop: 04/21/19 12:44 Last Admin: 03/27/19 08:52 Dose: 21 mg Documented by: Nitroglycerin (Nitrostat) 0.4 mg SL UD PRN PRN Reason: Chest Pain Stop: 04/19/19 03:15 Nystatin (Mycostatin) 1 appln EXT BID PRN PRN Reason: Rash Stop: 04/19/19 03:15 Ondansetron HCl (Zofran) 4 mg IV Q6H PRN PRN Reason: Nausea Stop: 04/19/19 03:15 Last Admin: 03/22/19 13:44 Dose: 4 mg Documented by: Oxycodone HCl (Roxicodone Immediate Rel) 15 mg PO Q4H PRN PRN Reason: Breakthrough Pain Stop: 04/03/19 03:15 Last Admin: 03/27/19 05:36 Dose: 15 mg Documented by: Pantoprazole Sodium (Protonix) 40 mg PO BID [facility] Stop: 04/19/19 20:59 Last Admin: 03/27/19 08:49 Dose: 40 mg Documented by: Polyethylene Glycol (Miralax Powder Packet) 34 gm PO BID [facility] Stop: 04/22/19 08:59 Last Admin: 03/27/19 08:54 Dose: 34 gm Documented by: Polyethylene Glycol (Miralax Powder Packet) 17 gm PO DAILY PRN PRN Reason: Constipation Stop: 04/19/19 03:15 Last Admin: 03/22/19 12:39 Dose: 17 gm Documented by: Potassium Chloride (Klor-Con M20) 40 meq PO TID [facility] Stop: 04/26/19 13:59 Sodium Biphosphate/Sodium Phosphate (Fleet Enema) 133 ml ID DAILY PRN PRN Reason: Constipation Stop: 04/19/19 03:15 Last Admin: 03/22/19 20:07 Dose: 132 ml Documented by: Spironolactone (Aldactone) 50 mg PO BID [facility] Stop: 04/19/19 08:59 Last Admin: 03/27/19 08:49 Dose: 50 mg Documented by: Tamsulosin HCl (Flomax) 0.4 mg PO DAILY [facility] Stop: 04/19/19 08:59 Last Admin: 03/27/19 08:49 Dose: 0.4 mg Documented by: Tiotropium [place] (Spiriva) 1 puffs INH DAILY [facility] Stop: 04/19/19 08:59 Last Admin: 03/27/19 08:49 Dose: 1 puffs Documented by: Tramadol HCl (Ultram) 50 mg PO Q4H PRN PRN Reason: Pain Stop: 04/19/19 03:15 Last Admin: 03/27/19 04:08 Dose: 50 mg Documented by: Warfarin Sodium (Coumadin) 10 mg PO DAILY@1600 [facility] Stop: 04/25/19 15:59 Last Admin: 03/26/19 15:20 Dose: 10 mg Documented by: (1) Pulmonary embolism Pulmonary embolism type: unspecified Chronicity: chronic Acute cor pulmonale presence: without acute cor pulmonale Qualified Code(s): I27.82 - Chronic pulmonary embolism
[2019-03-27] MEDS: Heparin Adult STANDARD Wt-Based Dextrose 5% 25,000 units/500 mL IV SCH ×2 (11:40→22:23)
[2019-03-27] MEDS: METHYLNALTREXONE BROMIDE 12 MG/0.6 ML VIAL SQ SCH (12:14)
[2019-03-27] MEDS: WARFARIN SOD 10 MG TAB PO SCH (15:32)
[2019-03-27 19:08] LABS: Partial Thromboplastin Ratio 1.5; Partial Thromboplastin Time 41.9 Seconds (21.0-31.0)
[2019-03-27] MEDS ORDERED: HEPARIN IV BOLUS 5,000 UNITS in SYRINGE 0 ML IV ONE (19:15)
--- NOTE | 2019-03-27 19:54 | Hospitalist Progress Note ---
Date of Service March 27, 2019 Assessment & Plan (1) Acute on chronic diastolic congestive heart failure, NYHA class 3: Volume overload felt to be secondary to right heart failure, obesity hypoventilation syndrome, noncompliance. Restrict sodium and fluids, restricting sodium to 1500 mg/day and fluids to less than 2000 mL/day Continue Strict I's and O's Continue IV lasix drip Cardiology on board recommended to continue diuresing Edema of the legs and fluid overload have not been any better since admission Likely to stay in the hospital for a few more days Monitor PRP and electrolytes Ileus Repeat KUB showed no change in mildly dilated gas-filled loops of small bowel within the left upper quadrant. Surgery on board recommended no surgical intervention GI on board Tolerated diet well Continue laxative Had Normal BM Resolved Ileus (2) Hematuria: Possible secondary to trauma and complicated by supratherapeutic INR Has indwelling Fontaine catheter due to prostatic hypertrophy Urology on board recommending to changing fontaine catheter towards end of abx, course, with 3-4 days left of course. Urine is cleared Continue flomax and finasteride Hemoglobin has been stable No more hematuria (3) Indwelling Fontaine catheter present: UTI Urine cx grew enterococcus faecalis IV Zosyn changed to Augmentin Continue Augmentin to complete a total 10 to 14 days of antibiotic Management as per urologist-change Fontaine about 2 to 3 days prior to finishing the course of antibiotic Draining clear urine (4) Chronic back pain: Has been on chronic pain medications with MS contin and oxycodone He will not be given any prescription of narcotics on discharge He has been getting Dilaudid 1 mg twice daily for increasing back pain Patient has been worse since this morning On Dilaudid prn for pain Will not be given any pain medications on discharge except the pain medication that he has been getting before Current regimen of narcotics and pain medications seems to be controlling his pain (5) Atypical chest pain: Complains to have chest pain Has had chest pain before without any evidence of ACS Serial cardiac enzymes have been negative EKG showed no ST changes Stable (6) Elevated lactic acid level: His lactic acid was mildly elevated on admission Possible related to infection UA positive for enterococcus faecalis Blood cx no growth Zosyn changed to Augmentin Resolved (7) Pulmonary embolism: History of pulmonary embolism on Coumadin Recurrent admission with supratherapeutic INR INR was more than 10 on admission and received Vit K INR is subtherapeutic, starting on heparin drip until INR therapeutic Continue coumadin 10mg today Monitor INR closely (8) Morbid obesity: Limited physical activity due to obesity Continue PT and OT evaluation and follow the recommendation (9) COPD (chronic obstructive pulmonary disease): Has more shortness of breath Does not have any COPD exacerbation (10) Depression with anxiety: Seems to be stable Continue current medications DVT px on heparin drip Continue INR until INR therapeutic CODE Status Full code Disposition Has been on intravenous Lasix infusion now Will discharge once medicallty stable Subjective Pt was seen and examined Sitting in chair with no distress Pt has been diuresis very well He said that he feels a bit better He had a large BM today Denies any chest pain, palpitation, dizziness and SOB Physical Exam Physical Exam: General- No acute distress Head- atraumatic Eyes- PERRL, EOMI, ENT- oropharynx clear Neck- supple, no JVD Lungs- diminished BS Heart- regular rhythm; no murmur Abdomen- normal bowel sounds, +tender Extremities- no calf tenderness, +edema Neuro- alert, oriented x 3; PERRL, EOMI; no facial palsy; no dysarthria Skin- warm & dry Results & Data Vital Signs (Past 12 Hours) Vital Signs Temp Pulse Pulse Resp BP Pulse Ox 03/27/19 19:46 36.7 C 102 H 23 123/77 92 03/27/19 17:32 88 03/27/19 15:19 36.8 C 91 H 22 112/66 91 03/27/19 12:09 36.8 C 84 18 114/75 91 03/27/19 08:00 79 03/27/19 07:59 37 C 89 18 101/61 92 (1) Hematuria Hematuria type: unspecified type Qualified Code(s): R31.9 - Hematuria, unspecified (2) COPD (chronic obstructive pulmonary disease) COPD type: emphysema Emphysema type: unspecified Qualified Code(s): J43.9 - Emphysema, unspecified (3) Pulmonary embolism Acute cor pulmonale presence: without acute cor pulmonale Chronicity: chronic Pulmonary embolism type: unspecified Qualified Code(s): I27.82 - Chronic pulmonary embolism
[2019-03-27] MEDS: LORazepam 1 MG TAB PO PRN (20:42)
[2019-03-28] MEDS: PROMETHAZINE HCL 25 MG in SODIUM CHLORIDE 0.9% 50 ML IV PRN ×2 (00:18→08:14)
[2019-03-28 01:53] LABS: BUN Creatinine Ratio 12.7 (10-20); Calcium 9.2 mg/dl (8.5-10.1); Creatinine Clr Calc Pharmacy 116.4 ml/min; Est GFR (African American) 67.8; Est GFR (Non-African American) 58.5; Potassium 3.7 mmol/L (3.5-5.1)
[2019-03-28 02:04] LABS: INR 1.2 (0.9-1.1); Partial Thromboplastin Ratio 2.5; Prothrombin Time 11.8 Seconds (9.0-12.0)
[2019-03-28 02:06] LABS: Partial Thromboplastin Time 67.2 Seconds (21.0-31.0)
[2019-03-28] MEDS: OXYCODONE HCL IR 5 MG TAB (IMMEDIATE RELEASE) PO PRN ×5 (03:52→23:38)
[2019-03-28] MEDS: TRAMADOL HCL 50 MG TABLET PO PRN ×3 (04:50→20:44)
[2019-03-28] MEDS: ISOSORBIDE DINITRATE 10 MG TAB PO SCH ×2 (06:23→11:36)
[2019-03-28] MEDS: FUROSEMIDE 100 MG in DEXTROSE 5% 90 ML IV SCH ×3 (06:26→19:48)
[2019-03-28] MEDS: POLYETHYLENE (MIRALAX) 17 GM PACK PO SCH ×2 (08:06→19:53)
[2019-03-28] MEDS: MoRPHine SULFATE CR 15 MG TABCR PO SCH ×2 (08:07→19:56)
[2019-03-28] MEDS: DOCUSATE SODIUM 100 MG CAP PO SCH ×2 (08:07→19:49)
[2019-03-28] MEDS: HYDROmorphone INJ 1 MG/ML SYRINGE IV PRN (08:07)
[2019-03-28] MEDS: METOPROLOL SUCC 25MG EXT REL TAB PO SCH ×2 (08:08→19:52)
[2019-03-28] MEDS: GABAPENTIN 300 MG CAP PO SCH ×3 (08:08→19:50)
[2019-03-28] MEDS: SPIRONOLACTONE 25 MG TAB PO SCH ×2 (08:08→19:52)
[2019-03-28] MEDS: CYCLOBENZAPRINE HCL 10 MG TAB PO SCH ×2 (08:09→19:50)
[2019-03-28] MEDS: DULOXETINE HCL 60 MG CAP PO SCH (08:09)
[2019-03-28] MEDS: POTASSIUM CHLORIDE 20 MEQ TABCR PO SCH ×3 (08:09→19:51)
[2019-03-28] MEDS: FINASTERIDE 5 MG TAB PO SCH (08:09)
[2019-03-28] MEDS: NICOTINE 21 MG/24 HR TDSY TD SCH (08:10)
[2019-03-28] MEDS: AMOXICILLIN/CLAVULANATE 875 MG TAB PO SCH ×2 (08:10→18:06)
[2019-03-28] MEDS: TIOTROPIUM BROMIDE 5 PUFF/90 MCG INH INH SCH (08:10)
[2019-03-28] MEDS: MAGNESIUM OXIDE 400 MG TAB PO SCH (08:10)
[2019-03-28] MEDS: PANTOprazole 40 MG TAB PO SCH ×2 (08:10→19:49)
[2019-03-28] MEDS: FLUTICASONE PROPIONATE NA SPR 16 GM BTL SCH (08:11)
[2019-03-28] MEDS: TAMSULOSIN HCL 0.4 MG CAP PO SCH (08:11)
[2019-03-28] MEDS: INSULIN ASPART 100 UNITS/ML 3 ML PEN SC SCH ×4 (08:14→19:53)
[2019-03-28] MEDS: METHYLNALTREXONE BROMIDE 12 MG/0.6 ML VIAL SQ SCH (08:15)
[2019-03-28] MEDS: Heparin Adult STANDARD Wt-Based Dextrose 5% 25,000 units/500 mL IV SCH ×2 (08:16→19:47)
[2019-03-28 08:34] LABS: Partial Thromboplastin Ratio 2.7
[2019-03-28 08:58] LABS: Partial Thromboplastin Time 74.4 Seconds (21.0-31.0)
--- NOTE | 2019-03-28 11:20 | Cardiology Progress Note ---
Date of Service March 28, 2019 Assessment & Plan (1) Right heart failure: Patient with ongoing diuresis over the last 24 hours. -2.6 L and 4.4 lbs Continue furosemide infusion to 15 mg/h. Mild increase in creatinine noted this AM. Will not increase diuretics further. Continue current dose and monitor. Continue potassium. (2) Indwelling Lloyd catheter present: Tolerating Lloyd catheter. (3) Pulmonary embolism: Patient has history of pulmonary embolism diagnosed in September 2018 after he had been hospitalized on multiple occasions. He certainly is at risk for repeat venous thromboembolic event due to hospitalization, stasis. His INR remains subtherapeutic. continue heparin infusion and coumadin. Supervising Physician Co-Signing Physician Notes I have reviewed the chart, discussed the case with Anneliese, interviewed and examined the patient. I agree with the diuretic management. I do not believe any additional cardiac testing is indicated. Subjective Pt was seen and examined in chair. Reports mild improvement overnight with higher dose diuretics initiated yesterday. SOB improving. Edema remains, but slightly improved per patient. No dizziness, chest pain. weight down 4.4 lbs since yesterday AM. -2.6 L Review of Systems Review of Systems: All systems reviewed & are unremarkable except as noted in HPI & below Physical Exam Constitutional: WD/WN, vitals as above + morbidly obese Respiratory: normal respiratory effort Auscultation: + diminished lung sounds; no crackles, no rales and no wheezes Cardiovascular: Rate/Rhythm: regular rate and regular rhythm Heart Sounds: no murmur (distant heart sounds) Extremities: + edema (2+ LE edema to knees. Chronic stasis changes) Gastrointestinal (Abdomen): normal bowel sounds, soft, nontender, no hepatosplenomegaly Neurologic: PERRL, EOMI, accommodation nl, no face palsy, no dysarthria Psychiatric: A+Ox3, euthymic affect Results & Data Vital Signs (Past 12 Hours) Vital Signs Temp Pulse Pulse Resp BP Pulse Ox 03/28/19 10:54 89 03/28/19 07:32 36.9 C 86 20 105/68 90 03/28/19 03:50 37.1 C 86 24 136/82 93 03/28/19 01:41 89 03/28/19 01:10 26 H 03/27/19 23:54 37.4 C 86 49 H 106/81 93 Laboratory Results 03/28/19 03/28/19 03/28/19 Range/Units 07:54 07:30 01:24 PT (9.0-12.0) Seconds INR (0.9-1.1) APTT 74.4 H* (21.0-31.0) Seconds PTT Ratio 2.7 Sodium 138 (136-145) mmol/L Potassium 3.7 (3.5-5.1) mmol/L Chloride 97 L (98-107) mmol/L Carbon Dioxide 31 (21-32) mmol/L Anion Gap 10.0 (3-11) BUN 18 (7-18) mg/dl Creatinine 1.41 H (0.6-1.4) mg/dl Est Cr Clr Drug Dosing 116.4 ml/min Est GFR ( Amer) 67.8 Est GFR (Non-Af Amer) 58.5 BUN/Creatinine Ratio 12.7 (10-20) Glucose 149 H (70-99) mg/dl POC Glucose 173 H (70-99) Calcium 9.2 (8.5-10.1) mg/dl 03/28/19 03/27/19 03/27/19 Range/Units 01:20 20:04 18:44 PT 11.8 (9.0-12.0) Seconds INR 1.2 H (0.9-1.1) APTT 67.2 H* 41.9 H (21.0-31.0) Seconds PTT Ratio 2.5 1.5 Sodium (136-145) mmol/L Potassium (3.5-5.1) mmol/L Chloride (98-107) mmol/L Carbon Dioxide (21-32) mmol/L Anion Gap (3-11) BUN (7-18) mg/dl Creatinine (0.6-1.4) mg/dl Est Cr Clr Drug Dosing ml/min Est GFR ( Amer) Est GFR (Non-Af Amer) BUN/Creatinine Ratio (10-20) Glucose (70-99) mg/dl POC Glucose 180 H (70-99) Calcium (8.5-10.1) mg/dl 03/27/19 03/27/19 03/27/19 Range/Units 16:18 16:14 11:25 PT (9.0-12.0) Seconds INR (0.9-1.1) APTT (21.0-31.0) Seconds PTT Ratio Sodium (136-145) mmol/L Potassium (3.5-5.1) mmol/L Chloride (98-107) mmol/L Carbon Dioxide (21-32) mmol/L Anion Gap (3-11) BUN (7-18) mg/dl Creatinine (0.6-1.4) mg/dl Est Cr Clr Drug Dosing ml/min Est GFR ( Amer) Est GFR (Non-Af Amer) BUN/Creatinine Ratio (10-20) Glucose (70-99) mg/dl POC Glucose 162 H 214 H 163 H (70-99) Calcium (8.5-10.1) mg/dl Medications Administered Current Inpatient Medications Acetaminophen (Tylenol) 650 mg PO Q4H PRN PRN Reason: Pain or Fever Stop: 04/19/19 03:15 Albuterol (Duoneb) 3 ml INH Q4H PRN PRN Reason: Shortness Of Breath Or Wheezing Stop: 04/19/19 03:15 Albuterol (Ventolin Hfa) 2 puffs INH Q4H PRN PRN Reason: Wheezing Stop: 04/19/19 03:15 Last Admin: 03/24/19 17:47 Dose: 2 puffs Documented by: Amoxicillin/Clavulanate Potassium (Augmentin 875mg) 1 tab PO BIDM [facility] Stop: 04/01/19 16:59 Last Admin: 03/28/19 08:10 Dose: 1 tab Documented by: Cyclobenzaprine HCl (Flexeril) 10 mg PO BID [facility] Stop: 04/19/19 08:59 Last Admin: 03/28/19 08:09 Dose: 10 mg Documented by: Docusate Sodium (Colace) 100 mg PO BID [facility] Stop: 04/19/19 08:59 Last Admin: 03/28/19 08:07 Dose: 100 mg Documented by: Duloxetine HCl (Cymbalta) 60 mg PO QAM [facility] Stop: 04/19/19 08:59 Last Admin: 03/28/19 08:09 Dose: 60 mg Documented by: Finasteride (Proscar) 5 mg PO QAM [facility] Stop: 04/19/19 08:59 Last Admin: 03/28/19 08:09 Dose: 5 mg Documented by: Fluticasone Propionate (Flonase) 2 sprays NA QAM [facility] Stop: 04/19/19 08:59 Last Admin: 03/28/19 08:11 Dose: 2 sprays Documented by: Gabapentin (Neurontin) 300 mg PO TID [facility] Stop: 04/19/19 08:59 Last Admin: 03/28/19 08:08 Dose: 300 mg Documented by: Hydromorphone HCl (Dilaudid) 1 mg IV UD PRN PRN Reason: Pain Stop: 04/08/19 08:56 Last Admin: 03/28/19 08:07 Dose: 1 mg Documented by: Hydroxyzine HCl (Vistaril) 25 mg PO QID PRN PRN Reason: Anxiety Stop: 04/19/19 03:15 Furosemide 100 mg/ Dextrose 100 mls @ 15 mls/hr IV .Q6H40M [facility] Stop: 04/25/19 12:14 Last Infusion: 03/28/19 06:44 Dose: 15 mg/hr, 15 mls/hr Documented by: Heparin Sodium/Dextrose (Heparin Sodium/Dextrose) 25,000 units in 500 mls @ 43 mls/hr IV .[id number] [facility]; Protocol Stop: 04/26/19 11:29 Last Titration: 03/28/19 09:10 Dose: 2,150 units/hr, 43 mls/hr Documented by: Promethazine HCl 25 mg/ Sodium (Chloride) 51 mls @ 204 mls/hr IV Q6H PRN PRN Reason: Nausea And Vomiting Stop: 04/19/19 16:04 Last Infusion: 03/28/19 09:15 Dose: Infused Documented by: Insulin Aspart (Novolog Flexpen) 0 units SC ACHS [facility] Stop: 04/19/19 16:29 Last Admin: 03/28/19 08:14 Dose: 17 units Documented by: Isosorbide Dinitrate (Isordil) 10 mg PO BID@0700,1200 [facility] Stop: 04/19/19 06:59 Last Admin: 03/28/19 06:23 Dose: 10 mg Documented by: Lorazepam (Ativan) 1 mg PO TID PRN PRN Reason: Anxiety Stop: 04/19/19 03:15 Last Admin: 03/27/19 20:42 Dose: 1 mg Documented by: Magnesium Oxide (Mag-Ox) 400 mg PO [facility] Stop: 04/19/19 08:59 Last Admin: 03/28/19 08:10 Dose: 400 mg Documented by: Methylnaltrexone [place] (Relistor) 12 mg SQ QDB [facility] Stop: 04/24/19 07:29 Last Admin: 03/28/19 08:15 Dose: Not Given Documented by: Metoprolol Succinate (Toprol Xl) 25 mg PO BID [facility] Stop: 04/19/19 08:59 Last Admin: 03/28/19 08:08 Dose: 25 mg Documented by: Miscellaneous (Remove Nicoderm Patch) 1 ea N/A HS [facility] Stop: 04/21/19 20:59 Last Admin: 03/27/19 20:36 Dose: Not Given Documented by: Morphine Sulfate (Ms Contin) 15 mg PO Q12H [facility] Stop: 04/03/19 08:59 Last Admin: 03/28/19 08:07 Dose: 15 mg Documented by: Nicotine (Nicoderm Cq) 21 mg TD QAM [facility] Stop: 04/21/19 12:44 Last Admin: 03/28/19 08:10 Dose: 21 mg Documented by: Nitroglycerin (Nitrostat) 0.4 mg SL UD PRN PRN Reason: Chest Pain Stop: 04/19/19 03:15 Nystatin (Mycostatin) 1 appln EXT BID PRN PRN Reason: Rash Stop: 04/19/19 03:15 Ondansetron HCl (Zofran) 4 mg IV Q6H PRN PRN Reason: Nausea Stop: 04/19/19 03:15 Last Admin: 03/22/19 13:44 Dose: 4 mg Documented by: Oxycodone HCl (Roxicodone Immediate Rel) 15 mg PO Q4H PRN PRN Reason: Breakthrough Pain Stop: 04/03/19 03:15 Last Admin: 03/28/19 03:52 Dose: 15 mg Documented by: Pantoprazole Sodium (Protonix) 40 mg PO BID [facility] Stop: 04/19/19 20:59 Last Admin: 03/28/19 08:10 Dose: 40 mg Documented by: Polyethylene Glycol (Miralax Powder Packet) 34 gm PO BID [facility] Stop: 04/22/19 08:59 Last Admin: 03/28/19 08:06 Dose: 34 gm Documented by: Polyethylene Glycol (Miralax Powder Packet) 17 gm PO DAILY PRN PRN Reason: Constipation Stop: 04/19/19 03:15 Last Admin: 03/22/19 12:39 Dose: 17 gm Documented by: Potassium Chloride (Klor-Con M20) 40 meq PO TID [facility] Stop: 04/26/19 13:59 Last Admin: 03/28/19 08:09 Dose: 40 meq Documented by: Sodium Biphosphate/Sodium Phosphate (Fleet Enema) 133 ml NE DAILY PRN PRN Reason: Constipation Stop: 04/19/19 03:15 Last Admin: 03/22/19 20:07 Dose: 132 ml Documented by: Spironolactone (Aldactone) 50 mg PO BID [facility] Stop: 04/19/19 08:59 Last Admin: 03/28/19 08:08 Dose: 50 mg Documented by: Tamsulosin HCl (Flomax) 0.4 mg PO DAILY [facility] Stop: 04/19/19 08:59 Last Admin: 03/28/19 08:11 Dose: 0.4 mg Documented by: Tiotropium [place] (Spiriva) 1 puffs INH DAILY [facility] Stop: 04/19/19 08:59 Last Admin: 03/28/19 08:10 Dose: 1 puffs Documented by: Tramadol HCl (Ultram) 50 mg PO Q4H PRN PRN Reason: Pain Stop: 04/19/19 03:15 Last Admin: 03/28/19 04:50 Dose: 50 mg Documented by: Warfarin Sodium (Coumadin) 10 mg PO DAILY@1600 [facility] Stop: 04/25/19 15:59 Last Admin: 03/27/19 15:32 Dose: 10 mg Documented by: (1) Pulmonary embolism Acute cor pulmonale presence: without acute cor pulmonale Chronicity: chronic Pulmonary embolism type: unspecified Qualified Code(s): I27.82 - Chronic pulmonary embolism
--- NOTE | 2019-03-28 14:24 | Hospitalist Progress Note ---
Date of Service March 28, 2019 Assessment & Plan (1) Acute on chronic diastolic congestive heart failure, NYHA class 3: Volume overload felt to be secondary to right heart failure, obesity hypoventilation syndrome, noncompliance. Restrict sodium and fluids, restricting sodium to 1500 mg/day and fluids to less than 2000 mL/day Continue Strict I's and O's Continue IV lasix drip Creatinine mildly elevated Cardiology on board recommended to continue diuresing Wait dropped to 202kg Continue 1.8L fluid restriction Edema of the legs and fluid overload have not been any better since admission Will consider to transition to oral diuretic Tomorrow if creatinine continue to bump Continue monitor BMP Ileus Repeat KUB showed no change in mildly dilated gas-filled loops of small bowel within the left upper quadrant. Surgery on board recommended no surgical intervention GI on board Tolerated diet well Continue laxative Had Normal BM Resolved Ileus (2) Hematuria: Possible secondary to trauma and complicated by supratherapeutic INR Has indwelling Fontaine catheter due to prostatic hypertrophy Urology on board recommending to changing fontaine catheter towards end of abx, course, with 3-4 days left of course. Continue flomax and finasteride Hemoglobin has been stable No more hematuria (3) Indwelling Fontaine catheter present: UTI Urine cx grew enterococcus faecalis IV Zosyn changed to Augmentin Continue Augmentin to complete a total 10 to 14 days of antibiotic Will change Fontaine about 2 to 3 days prior to finishing the course of antibiotic as per urology recommendation (4) Chronic back pain: Has been on chronic pain medications with MS contin and oxycodone He will not be given any prescription of narcotics on discharge He has been getting Dilaudid 1 mg twice daily for increasing back pain Patient has been worse since this morning On Dilaudid prn for pain Will not be given any pain medications on discharge except the pain medication that he has been getting before Current regimen of narcotics and pain medications seems to be controlling his pain (5) Atypical chest pain: Complains to have chest pain Has had chest pain before without any evidence of ACS Serial cardiac enzymes have been negative EKG showed no ST changes Stable (6) Elevated lactic acid level: His lactic acid was mildly elevated on admission Possible related to infection UA positive for enterococcus faecalis Blood cx no growth Zosyn changed to Augmentin Resolved (7) Pulmonary embolism: History of pulmonary embolism on Coumadin Recurrent admission with supratherapeutic INR INR was more than 10 on admission and received Vit K INR is subtherapeutic, starting on heparin drip until INR therapeutic Continue coumadin 10mg today Monitor INR closely (8) Morbid obesity: Limited physical activity due to obesity Continue PT and OT evaluation and follow the recommendation (9) COPD (chronic obstructive pulmonary disease): Has more shortness of breath Does not have any COPD exacerbation (10) Depression with anxiety: Seems to be stable Continue current medications DVT px on heparin drip Continue INR until INR therapeutic CODE Status Full code Disposition Has been on intravenous Lasix infusion now Will discharge once medically stable Subjective Pt was seen and examined Sitting in chair with no distress watching TV Continue complaint with chronic back pain Denies any chest pain, palpitation, dizziness and SOB Physical Exam Physical Exam: General- No acute distress Head- atraumatic Eyes- PERRL, EOMI, ENT- oropharynx clear Neck- supple, no JVD Lungs- diminished BS Heart- regular rhythm; no murmur Abdomen- normal bowel sounds, +tender Extremities- no calf tenderness, +edema Neuro- alert, oriented x 3; PERRL, EOMI; no facial palsy; no dysarthria Skin- warm & dry Results & Data Vital Signs (Past 12 Hours) Vital Signs Temp Pulse Pulse Resp BP BP Pulse Ox 03/28/19 11:55 37.1 C 110 H 20 112/77 95 03/28/19 10:54 89 03/28/19 07:32 36.9 C 86 20 105/68 90 03/28/19 03:50 37.1 C 86 24 136/82 93 (1) Hematuria Hematuria type: unspecified type Qualified Code(s): R31.9 - Hematuria, u nspecified (2) COPD (chronic obstructive pulmonary disease) COPD type: emphysema Emphysema type: unspecified Qualified Code(s): J43.9 - Emphysema, unspecified (3) Pulmonary embolism Acute cor pulmonale presence: without acute cor pulmonale Chronicity: chronic Pulmonary embolism type: unspecified Qualified Code(s): I27.82 - Chronic pulmonary embolism
[2019-03-28] MEDS: WARFARIN SOD 10 MG TAB PO SCH (15:48)
[2019-03-28] MEDS: ONDANSETRON INJ 2 MG/ML 2 ML VIAL IV PRN (15:50)
[2019-03-28 15:51] LABS: Partial Thromboplastin Ratio 2.3
[2019-03-28 15:59] LABS: Partial Thromboplastin Time 63.6 Seconds (21.0-31.0)
[2019-03-28] MEDS ORDERED: PROMETHAZINE HCL 25 MG in SODIUM CHLORIDE 0.9% 50 ML IV STA (17:54)
[2019-03-28] MEDS ORDERED: PROMETHAZINE HCL 25 MG/20 ML UDP PO PRN (18:42)
[2019-03-28] MEDS: LORazepam 1 MG TAB PO PRN (19:56)
[2019-03-28 22:56] LABS: INR 1.3 (0.9-1.1)
[2019-03-29] MEDS: FUROSEMIDE 100 MG in DEXTROSE 5% 90 ML IV SCH ×4 (01:47→23:12)
[2019-03-29] MEDS: OXYCODONE HCL IR 5 MG TAB (IMMEDIATE RELEASE) PO PRN ×4 (06:13→22:45)
[2019-03-29 06:45] LABS: INR 1.4 (0.9-1.1); Prothrombin Time 13.9 Seconds (9.0-12.0)
[2019-03-29 07:06] LABS: BUN Creatinine Ratio 13.6 (10-20); Calcium 10.1 mg/dl (8.5-10.1); Est GFR (African American) 69.6
[2019-03-29] MEDS: TRAMADOL HCL 50 MG TABLET PO PRN ×4 (07:39→23:32)
[2019-03-29] MEDS: Heparin Adult STANDARD Wt-Based Dextrose 5% 25,000 units/500 mL IV SCH ×2 (07:40→18:29)
[2019-03-29 07:41] LABS: Partial Thromboplastin Ratio 1.7; Partial Thromboplastin Time 44.9 Seconds (21.0-31.0)
[2019-03-29] MEDS: AMOXICILLIN/CLAVULANATE 875 MG TAB PO SCH ×2 (07:42→17:15)
[2019-03-29] MEDS: ISOSORBIDE DINITRATE 10 MG TAB PO SCH ×2 (07:42→12:38)
[2019-03-29] MEDS: INSULIN ASPART 100 UNITS/ML 3 ML PEN SC SCH ×4 (07:44→20:30)
[2019-03-29] MEDS ORDERED: guaiFENesin 200 MG TAB PO PRN (08:03)
[2019-03-29] MEDS: METHYLNALTREXONE BROMIDE 12 MG/0.6 ML VIAL SQ SCH (08:06)
[2019-03-29] MEDS ORDERED: HEPARIN IV BOLUS 5,000 UNITS in SYRINGE 0 ML IV ONE (08:15)
[2019-03-29] MEDS: LORazepam 1 MG TAB PO PRN ×2 (08:38→20:29)
[2019-03-29] MEDS: DOCUSATE SODIUM 100 MG CAP PO SCH ×2 (08:39→20:27)
[2019-03-29] MEDS: MoRPHine SULFATE CR 15 MG TABCR PO SCH ×2 (08:39→20:24)
[2019-03-29] MEDS: PANTOprazole 40 MG TAB PO SCH ×2 (08:40→20:27)
[2019-03-29] MEDS: FLUTICASONE PROPIONATE NA SPR 16 GM BTL SCH (08:40)
[2019-03-29] MEDS: GABAPENTIN 300 MG CAP PO SCH ×3 (08:40→20:25)
[2019-03-29] MEDS: CYCLOBENZAPRINE HCL 10 MG TAB PO SCH ×2 (08:41→20:26)
[2019-03-29] MEDS: TIOTROPIUM BROMIDE 5 PUFF/90 MCG INH INH SCH (08:41)
[2019-03-29] MEDS: DULOXETINE HCL 60 MG CAP PO SCH (08:41)
[2019-03-29] MEDS: SPIRONOLACTONE 25 MG TAB PO SCH ×2 (08:42→20:25)
[2019-03-29] MEDS: METOPROLOL SUCC 25MG EXT REL TAB PO SCH ×2 (08:42→20:27)
[2019-03-29] MEDS: POTASSIUM CHLORIDE 20 MEQ TABCR PO SCH ×3 (08:42→20:25)
[2019-03-29] MEDS: MAGNESIUM OXIDE 400 MG TAB PO SCH (08:43)
[2019-03-29] MEDS: NICOTINE 21 MG/24 HR TDSY TD SCH (08:43)
[2019-03-29] MEDS: FINASTERIDE 5 MG TAB PO SCH (08:43)
[2019-03-29] MEDS: TAMSULOSIN HCL 0.4 MG CAP PO SCH (08:43)
[2019-03-29] MEDS: POLYETHYLENE (MIRALAX) 17 GM PACK PO SCH ×2 (08:43→20:22)
--- NOTE | 2019-03-29 11:56 | Cardiology Progress Note ---
Date of Service March 29, 2019 Assessment & Plan (1) Right heart failure: Patient with ongoing diuresis. Negative 3 L over the last 24 hours. weight trending down. Continue furosemide infusion Stable creatinine this AM. Continue current dose and monitor. Continue potassium. (2) Indwelling Lloyd catheter present: Tolerating Lloyd catheter. (3) Pulmonary embolism: Patient has history of pulmonary embolism diagnosed in September 2018 after he had been hospitalized on multiple occasions. He certainly is at risk for repeat venous thromboembolic event due to hospitalization, stasis. His INR remains subtherapeutic. continue heparin infusion and coumadin. Supervising Physician Co-Signing Physician Notes I have reviewed the chart, discussed the case with Ms. Coy, interviewed and examined the patient. He has chronic right heart failure with volume overload and needs additional diuretics. I believe he could be moved to [facility] telemetry floor. Subjective Pt was seen and examined in chair. No chest pain or SOB. Reports ongoing edema. No dizziness. Diuresing well. Review of Systems Review of Systems: All systems reviewed & are unremarkable except as noted in HPI & below Physical Exam Constitutional: WD/WN, vitals as above + morbidly obese Respiratory: normal respiratory effort Auscultation: + diminished lung sounds; no crackles, no rales and no wheezes Cardiovascular: Rate/Rhythm: regular rate and regular rhythm Heart Sounds: no murmur (distant heart sounds) Extremities: + edema (2+ LE edema to knees. Chronic stasis changes) Gastrointestinal (Abdomen): normal bowel sounds, soft, nontender, no hepatosplenomegaly Neurologic: PERRL, EOMI, accommodation nl, no face palsy, no dysarthria Psychiatric: A+Ox3, euthymic affect Results & Data Vital Signs (Past 12 Hours) Vital Signs Temp Pulse Pulse Resp BP Pulse Ox 03/29/19 11:18 36.7 C 87 20 109/76 90 03/29/19 07:57 36.9 C 91 H 20 109/67 95 03/29/19 01:07 95 H Laboratory Results 03/29/19 03/29/19 03/29/19 Range/Units 11:22 07:26 06:06 PT (9.0-12.0) Seconds INR (0.9-1.1) APTT (21.0-31.0) Seconds PTT Ratio Sodium 135 L (136-145) mmol/L Potassium 4.0 (3.5-5.1) mmol/L Chloride 96 L (98-107) mmol/L Carbon Dioxide 33 H (21-32) mmol/L Anion Gap 6.0 (3-11) BUN 19 H (7-18) mg/dl Creatinine 1.38 (0.6-1.4) mg/dl Est Cr Clr Drug Dosing 118.0 ml/min Est GFR ( Amer) 69.6 Est GFR (Non-Af Amer) 60.0 BUN/Creatinine Ratio 13.6 (10-20) Glucose 144 H (70-99) mg/dl POC Glucose 204 H 188 H (70-99) Calcium 10.1 (8.5-10.1) mg/dl 03/29/19 03/28/19 03/28/19 Range/Units 06:06 19:44 16:18 PT 13.9 H (9.0-12.0) Seconds INR 1.4 H (0.9-1.1) APTT 44.9 H (21.0-31.0) Seconds PTT Ratio 1.7 Sodium (136-145) mmol/L Potassium (3.5-5.1) mmol/L Chloride (98-107) mmol/L Carbon Dioxide (21-32) mmol/L Anion Gap (3-11) BUN (7-18) mg/dl Creatinine (0.6-1.4) mg/dl Est Cr Clr Drug Dosing ml/min Est GFR ( Amer) Est GFR (Non-Af Amer) BUN/Creatinine Ratio (10-20) Glucose (70-99) mg/dl POC Glucose 142 H 126 H (70-99) Calcium (8.5-10.1) mg/dl 03/28/19 03/28/19 Range/Units 15:10 15:10 PT 13.0 H (9.0-12.0) Seconds INR 1.3 H (0.9-1.1) APTT 63.6 H* (21.0-31.0) Seconds PTT Ratio 2.3 Sodium (136-145) mmol/L Potassium (3.5-5.1) mmol/L Chloride (98-107) mmol/L Carbon Dioxide (21-32) mmol/L Anion Gap (3-11) BUN (7-18) mg/dl Creatinine (0.6-1.4) mg/dl Est Cr Clr Drug Dosing ml/min Est GFR ( Amer) Est GFR (Non-Af Amer) BUN/Creatinine Ratio (10-20) Glucose (70-99) mg/dl POC Glucose (70-99) Calcium (8.5-10.1) mg/dl (1) Pulmonary embolism Acute cor pulmonale presence: without acute cor pulmonale Chronicity: chronic Pulmonary embolism type: unspecified Qualified Code(s): I27.82 - Chronic pulmonary embolism
[2019-03-29 14:39] LABS: Partial Thromboplastin Ratio 2.6
[2019-03-29 14:46] LABS: Partial Thromboplastin Time 69.3 Seconds (21.0-31.0)
--- NOTE | 2019-03-29 14:54 | Hospitalist Progress Note ---
Date of Service March 29, 2019 Assessment & Plan (1) Acute on chronic diastolic congestive heart failure, NYHA class 3: Volume overload felt to be secondary to right heart failure, obesity hypoventilation syndrome, noncompliance. Restrict sodium and fluids, restricting sodium to 1500 mg/day and fluids to less than 2000 mL/day Continue Strict I's and O's Continue IV lasix drip Creatinine mildly elevated Cardiology on board recommended to continue diuresing Wait dropped to 202kg Continue 1.8L fluid restriction Edema of the legs and fluid overload have not been any better since admission Will consider to transition to oral diuretic Tomorrow if creatinine continue to bump Continue monitor BMP Ileus Repeat KUB showed no change in mildly dilated gas-filled loops of small bowel within the left upper quadrant. Surgery on board recommended no surgical intervention GI on board Tolerated diet well Continue laxative Had Normal BM Resolved Ileus (2) Hematuria: Possible secondary to trauma and complicated by supratherapeutic INR Has indwelling Fontaine catheter due to prostatic hypertrophy Urology on board recommending to changing fontaine catheter towards end of abx, course, with 3-4 days left of course. Continue flomax and finasteride Will change fontaine cath tomorrow Hemoglobin has been stable No more hematuria (3) Indwelling Fontaine catheter present: UTI Urine cx grew enterococcus faecalis IV Zosyn changed to Augmentin Continue Augmentin to complete a total 10 to 14 days of antibiotic Will change Fontaine about 2 to 3 days prior to finishing the course of antibiotic as per urology recommendation Will change fontaine cath tomorrow (4) Chronic back pain: Has been on chronic pain medications with MS contin and oxycodone He will not be given any prescription of narcotics on discharge He has been getting Dilaudid 1 mg twice daily for increasing back pain Patient has been worse since this mornin Will not be given any pain medications on discharge except the pain medication that he has been getting before Current regimen of narcotics and pain medications seems to be controlling his pain Dilaudid discontinued (5) Atypical chest pain: Complains to have chest pain Has had chest pain before without any evidence of ACS Serial cardiac enzymes have been negative EKG showed no ST changes Stable (6) Elevated lactic acid level: His lactic acid was mildly elevated on admission Possible related to infection UA positive for enterococcus faecalis Blood cx no growth Zosyn changed to Augmentin Resolved (7) Pulmonary embolism: History of pulmonary embolism on Coumadin Recurrent admission with supratherapeutic INR INR was more than 10 on admission and received Vit K INR is subtherapeutic, starting on heparin drip until INR therapeutic Continue coumadin 10mg today INR 1.4 today Monitor INR closely (8) Morbid obesity: Limited physical activity due to obesity Continue PT and OT evaluation and follow the recommendation (9) COPD (chronic obstructive pulmonary disease): Has more shortness of breath Does not have any COPD exacerbation (10) Depression with anxiety: Seems to be stable Continue current medications DVT px on heparin drip Continue INR until INR therapeutic CODE Status Full code Disposition Has been on intravenous Lasix infusion now Will transfer to med/surg with tele Subjective Pt was seen and examined Lying in bed with no distress Pt said that he is in so much pain He said that he vomited last night He continue to ask for IV pain med Denies any chest pain, palpitation, dizziness and SOB Physical Exam Physical Exam: General- No acute distress Head- atraumatic Eyes- PERRL, EOMI, ENT- oropharynx clear Neck- supple, no JVD Lungs- diminished BS Heart- regular rhythm; no murmur Abdomen- normal bowel sounds, +tender Extremities- no calf tenderness, +edema Neuro- alert, oriented x 3; PERRL, EOMI; no facial palsy; no dysarthria Skin- warm & dry Results & Data Vital Signs (Past 12 Hours) Vital Signs Temp Pulse Pulse Resp BP Pulse Ox 03/29/19 11:18 36.7 C 87 20 109/76 90 03/29/19 08:15 82 03/29/19 07:57 36.9 C 91 H 20 109/67 95 (1) Hematuria Hematuria type: unspecified type Qualified Code(s): R31.9 - Hematuria, unspecified (2) COPD (chronic obstructive pulmonary disease) COPD type: emphysema Emphysema type: unspecified Qualified Code(s): J43.9 - Emphysema, unspecified (3) Pulmonary embolism Acute cor pulmonale presence: without acute cor pulmonale Chronicity: chronic Pulmonary embolism type: unspecified Qualified Code(s): I27.82 - Chronic pulmonary embolism
[2019-03-29] MEDS ORDERED: HYDROmorphone INJ 1 MG/ML SYRINGE IV ONE (15:00)
[2019-03-29] MEDS: WARFARIN SOD 10 MG TAB PO SCH (16:12)
[2019-03-29] MEDS: PROMETHAZINE HCL 25 MG TAB PO PRN (20:29)
[2019-03-29 21:32] LABS: Partial Thromboplastin Ratio 2.2
[2019-03-29 21:39] LABS: Partial Thromboplastin Time 60.4 Seconds (21.0-31.0)
[2019-03-30] MEDS: OXYCODONE HCL IR 5 MG TAB (IMMEDIATE RELEASE) PO PRN ×5 (03:34→22:33)
[2019-03-30] MEDS: Heparin Adult STANDARD Wt-Based Dextrose 5% 25,000 units/500 mL IV SCH ×2 (05:24→16:20)
[2019-03-30] MEDS: TRAMADOL HCL 50 MG TABLET PO PRN ×4 (05:39→23:27)
[2019-03-30] MEDS: FUROSEMIDE 100 MG in DEXTROSE 5% 90 ML IV SCH ×3 (05:40→19:23)
[2019-03-30 06:27] LABS: INR 1.7 (0.9-1.1); Prothrombin Time 16.5 Seconds (9.0-12.0)
[2019-03-30 06:28] LABS: BUN Creatinine Ratio 12.6 (10-20); Calcium 9.5 mg/dl (8.5-10.1); Creatinine Clr Calc Pharmacy 111.6 ml/min; Est GFR (Non-African American) 56.1; Potassium 3.7 mmol/L (3.5-5.1)
[2019-03-30] MEDS: ISOSORBIDE DINITRATE 10 MG TAB PO SCH ×2 (06:38→11:37)
[2019-03-30 07:02] LABS: Partial Thromboplastin Ratio 2.4
[2019-03-30 07:05] LABS: Partial Thromboplastin Time 64.6 Seconds (21.0-31.0)
[2019-03-30] MEDS: POLYETHYLENE (MIRALAX) 17 GM PACK PO SCH ×2 (07:29→21:14)
[2019-03-30] MEDS: TIOTROPIUM BROMIDE 5 PUFF/90 MCG INH INH SCH (07:30)
[2019-03-30] MEDS: FLUTICASONE PROPIONATE NA SPR 16 GM BTL SCH (07:31)
[2019-03-30] MEDS: NICOTINE 21 MG/24 HR TDSY TD SCH (07:31)
[2019-03-30] MEDS: SPIRONOLACTONE 25 MG TAB PO SCH ×2 (07:32→21:13)
[2019-03-30] MEDS: METOPROLOL SUCC 25MG EXT REL TAB PO SCH ×2 (07:32→21:12)
[2019-03-30] MEDS: MAGNESIUM OXIDE 400 MG TAB PO SCH (07:32)
[2019-03-30] MEDS: PANTOprazole 40 MG TAB PO SCH ×2 (07:32→21:12)
[2019-03-30] MEDS: AMOXICILLIN/CLAVULANATE 875 MG TAB PO SCH ×2 (07:32→16:22)
[2019-03-30] MEDS: FINASTERIDE 5 MG TAB PO SCH (07:32)
[2019-03-30] MEDS: DULOXETINE HCL 60 MG CAP PO SCH (07:33)
[2019-03-30] MEDS: PROMETHAZINE HCL 25 MG TAB PO PRN ×3 (07:33→22:34)
[2019-03-30] MEDS: CYCLOBENZAPRINE HCL 10 MG TAB PO SCH ×2 (07:33→21:11)
[2019-03-30] MEDS: DOCUSATE SODIUM 100 MG CAP PO SCH ×2 (07:33→21:14)
[2019-03-30] MEDS: TAMSULOSIN HCL 0.4 MG CAP PO SCH (07:33)
[2019-03-30] MEDS: GABAPENTIN 300 MG CAP PO SCH ×3 (07:33→21:12)
[2019-03-30] MEDS: POTASSIUM CHLORIDE 20 MEQ TABCR PO SCH ×3 (07:33→21:13)
[2019-03-30] MEDS: MoRPHine SULFATE CR 15 MG TABCR PO SCH ×2 (08:23→21:18)
[2019-03-30] MEDS: INSULIN ASPART 100 UNITS/ML 3 ML PEN SC SCH ×4 (08:24→21:14)
--- NOTE | 2019-03-30 11:06 | Cardiology Progress Note ---
Date of Service March 30, 2019 Assessment & Plan (1) Right heart failure: Patient with ongoing diuresis. Negative 3 L over the last 24 hours. weight trending down. Continue furosemide infusion Mild increase in creatinine this AM. Continue current dose and monitor. Continue potassium. consider transition to oral diuretics tomorrow. (2) Indwelling Lloyd catheter present: Tolerating Lloyd catheter. (3) Pulmonary embolism: Patient has history of pulmonary embolism diagnosed in September 2018 after he had been hospitalized on multiple occasions. He certainly is at risk for repeat venous thromboembolic event due to hospitalization, stasis. His INR remains subtherapeutic. continue heparin infusion and coumadin. Supervising Physician Co-Signing Physician Notes I have reviewed the chart, discussed the case with Eboni Anneliese, interviewed and examined the patient. He has chronic right heart failure with volume overload and needs additional diuretics. I believe he could be moved to the [facility] telemetry floor. I anticipate discharge soon. Subjective Pt was seen and examined Lying in bed with no distress Feels his volume status has improved since admission. Reporting mild SOB today and hand edema. He reports the need for ongoing diuresis before discharge. Denies chest pain. Review of Systems Review of Systems: All systems reviewed & are unremarkable except as noted in HPI & below Physical Exam Constitutional: WD/WN, vitals as above + morbidly obese Respiratory: normal respiratory effort Auscultation: + diminished lung sounds; no crackles, no rales and no wheezes Cardiovascular: Rate/Rhythm: regular rate and regular rhythm Heart Sounds: no murmur (distant heart sounds) Extremities: + edema (2+ LE edema to knees. Chronic stasis changes) Gastrointestinal (Abdomen): normal bowel sounds, soft, nontender, no hepatosplenomegaly Neurologic: PERRL, EOMI, accommodation nl, no face palsy, no dysarthria Psychiatric: A+Ox3, euthymic affect Results & Data Vital Signs (Past 12 Hours) Vital Signs Temp Pulse Pulse Resp BP Pulse Ox 03/30/19 06:34 37.0 C 86 18 138/74 90 03/30/19 03:27 36.8 C 87 22 127/81 91 03/30/19 00:00 93 H 03/29/19 23:24 37.1 C 63 22 104/69 96 Laboratory Results 03/30/19 03/30/19 03/30/19 Range/Units 07:36 05:47 05:47 PT (9.0-12.0) Seconds INR (0.9-1.1) APTT 64.6 H* (21.0-31.0) Seconds PTT Ratio 2.4 Sodium 134 L (136-145) mmol/L Potassium 3.7 (3.5-5.1) mmol/L Chloride 95 L (98-107) mmol/L Carbon Dioxide 33 H (21-32) mmol/L Anion Gap 6.0 (3-11) BUN 18 (7-18) mg/dl Creatinine 1.46 H (0.6-1.4) mg/dl Est Cr Clr Drug Dosing 111.6 ml/min Est GFR ( Amer) 65.0 Est GFR (Non-Af Amer) 56.1 BUN/Creatinine Ratio 12.6 (10-20) Glucose 169 H (70-99) mg/dl POC Glucose 169 H (70-99) Calcium 9.5 (8.5-10.1) mg/dl 03/30/19 03/29/19 03/29/19 Range/Units 05:47 20:50 20:15 PT 16.5 H (9.0-12.0) Seconds INR 1.7 H (0.9-1.1) APTT 60.4 H* (21.0-31.0) Seconds PTT Ratio 2.2 Sodium (136-145) mmol/L Potassium (3.5-5.1) mmol/L Chloride (98-107) mmol/L Carbon Dioxide (21-32) mmol/L Anion Gap (3-11) BUN (7-18) mg/dl Creatinine (0.6-1.4) mg/dl Est Cr Clr Drug Dosing ml/min Est GFR ( Amer) Est GFR (Non-Af Amer) BUN/Creatinine Ratio (10-20) Glucose (70-99) mg/dl POC Glucose 182 H (70-99) Calcium (8.5-10.1) mg/dl 03/29/19 03/29/19 03/29/19 Range/Units 16:29 13:58 11:22 PT (9.0-12.0) Seconds INR (0.9-1.1) APTT 69.3 H* (21.0-31.0) Seconds PTT Ratio 2.6 Sodium (136-145) mmol/L Potassium (3.5-5.1) mmol/L Chloride (98-107) mmol/L Carbon Dioxide (21-32) mmol/L Anion Gap (3-11) BUN (7-18) mg/dl Creatinine (0.6-1.4) mg/dl Est Cr Clr Drug Dosing ml/min Est GFR ( Amer) Est GFR (Non-Af Amer) BUN/Creatinine Ratio (10-20) Glucose (70-99) mg/dl POC Glucose 151 H 204 H (70-99) Calcium (8.5-10.1) mg/dl Medications Administered Current Inpatient Medications Acetaminophen (Tylenol) 650 mg PO Q4H PRN PRN Reason: Pain or Fever Stop: 04/19/19 03:15 Albuterol (Duoneb) 3 ml INH Q4H PRN PRN Reason: Shortness Of Breath Or Wheezing Stop: 04/19/19 03:15 Albuterol (Ventolin Hfa) 2 puffs INH Q4H PRN PRN Reason: Wheezing Stop: 04/19/19 03:15 Last Admin: 03/24/19 17:47 Dose: 2 puffs Documented by: Amoxicillin/Clavulanate Potassium (Augmentin 875mg) [facility] Stop: 04/01/19 16:59 Last Admin: 03/30/19 07:32 Dose: 1 tab Documented by: Cyclobenzaprine HCl (Flexeril) 10 mg PO BID [facility] Stop: 04/19/19 08:59 Last Admin: 03/30/19 07:33 Dose: 10 mg Documented by: Docusate Sodium (Colace) 100 mg PO BID [facility] Stop: 04/19/19 08:59 Last Admin: 03/30/19 07:33 Dose: 100 mg Documented by: Duloxetine HCl (Cymbalta) 60 [facility] Stop: 04/19/19 08:59 Last Admin: 03/30/19 07:33 Dose: 60 mg Documented by: Finasteride (Proscar) 5 mg PO QAM [facility] Stop: 04/19/19 08:59 Last Admin: 03/30/19 07:32 Dose: 5 mg Documented by: Fluticasone Propionate (Flonase) 2 sprays NA QAM [facility] Stop: 04/19/19 08:59 Last Admin: 03/30/19 07:31 Dose: 2 sprays Documented by: Gabapentin (Neurontin) 300 mg PO TID [facility] Stop: 04/19/19 08:59 Last Admin: 03/30/19 07:33 Dose: 300 mg Documented by: Guaifenesin (Organidin Nr) 200 mg PO Q6H PRN PRN Reason: cough Stop: 04/28/19 08:14 Last Admin: 03/29/19 08:37 Dose: 200 mg Documented by: Hydroxyzine HCl (Vistaril) 25 mg PO QID PRN PRN Reason: Anxiety Stop: 04/19/19 03:15 Furosemide 100 mg/ Dextrose 100 mls @ 15 mls/hr IV .Q6H40M [facility] Stop: 04/25/19 12:14 Last Admin: 03/30/19 05:40 Dose: 15 mg/hr, 15 mls/hr Documented by: Heparin Sodium/Dextrose (Heparin Sodium/Dextrose) 25,000 units in 500 mls @ 45 mls/hr IV .Q11H7M [facility]; Protocol Stop: 04/26/19 11:29 Last Titration: 03/30/19 07:07 Dose: 2,250 units/hr, 45 mls/hr Documented by: Insulin Aspart (Novolog Flexpen) 0 units SC ACHS [facility] Stop: 04/19/19 16:29 Last Admin: 03/30/19 08:24 Dose: 4 units Documented by: Isosorbide Dinitrate (Isordil) 10 mg PO BID@0700,1200 [facility] Stop: 04/19/19 06:59 Last Admin: 03/30/19 06:38 Dose: 10 mg Documented by: Lorazepam (Ativan) 1 mg PO TID PRN PRN Reason: Anxiety Stop: 04/19/19 03:15 Last Admin: 03/29/19 20:29 Dose: 1 mg Documented by: Magnesium Oxide (Mag-Ox) 400 mg PO QAM [facility] Stop: 04/19/19 08:59 Last Admin: 03/30/19 07:32 Dose: 400 mg Documented by: Metoprolol Succinate (Toprol Xl) 25 mg PO BID [facility] Stop: 04/19/19 08:59 Last Admin: 03/30/19 07:32 Dose: 25 mg Documented by: Miscellaneous (Remove Nicoderm Patch) 1 ea N/A HS [facility] Stop: 04/21/19 20:59 Last Admin: 03/29/19 20:35 Dose: Not Given Documented by: Morphine Sulfate (Ms Contin) 15 mg PO Q12H [facility] Stop: 04/03/19 08:59 Last Admin: 03/30/19 08:23 Dose: 15 mg Documented by: Nicotine (Nicoderm Cq) 21 mg TD QAM [facility] Stop: 04/21/19 12:44 Last Admin: 03/30/19 07:31 Dose: 21 mg Documented by: Nitroglycerin (Nitrostat) 0.4 mg SL UD PRN PRN Reason: Chest Pain Stop: 04/19/19 03:15 Nystatin (Mycostatin) 1 appln EXT BID PRN PRN Reason: Rash Stop: 04/19/19 03:15 Ondansetron HCl (Zofran) 4 mg IV Q6H PRN PRN Reason: Nausea Stop: 04/19/19 03:15 Last Admin: 03/28/19 15:50 Dose: 4 mg Documented by: Oxycodone HCl (Roxicodone Immediate Rel) 15 mg PO Q4H PRN PRN Reason: Breakthrough Pain Stop: 04/03/19 03:15 Last Admin: 03/30/19 08:23 Dose: 15 mg Documented by: Pantoprazole Sodium (Protonix) 40 mg PO BID [facility] Stop: 04/19/19 20:59 Last Admin: 03/30/19 07:32 Dose: 40 mg Documented by: Polyethylene Glycol (Miralax Powder Packet) 34 gm PO BID [facility] Stop: 04/22/19 08:59 Last Admin: 03/30/19 07:29 Dose: 34 gm Documented by: Polyethylene Glycol (Miralax Powder Packet) 17 gm PO DAILY PRN PRN Reason: Constipation Stop: 04/19/19 03:15 Last Admin: 03/22/19 12:39 Dose: 17 gm Documented by: Potassium Chloride (Klor-Con M20) 40 meq PO TID [facility] Stop: 04/26/19 13:59 Last Admin: 03/30/19 07:33 Dose: 40 meq Documented by: Promethazine HCl (Phenergan) 25 mg PO Q6H PRN PRN Reason: Nausea And Vomiting Stop: 04/28/19 17:40 Last Admin: 03/30/19 07:33 Dose: 25 mg Documented by: Sodium Biphosphate/Sodium Phosphate (Fleet Enema) 133 ml LA DAILY PRN PRN Reason: Constipation Stop: 04/19/19 03:15 Last Admin: 03/22/19 20:07 Dose: 132 ml Documented by: Spironolactone (Aldactone) 50 mg PO BID [facility] Stop: 04/19/19 08:59 Last Admin: 03/30/19 07:32 Dose: 50 mg Documented by: Tamsulosin HCl (Flomax) 0.4 mg PO DAILY EMPERATRIZ Stop: 04/19/19 08:59 Last Admin: 03/30/19 07:33 Dose: 0.4 mg Documented by: Tiotropium [place] (Spiriva) 1 puffs INH DAILY [facility] Stop: 04/19/19 08:59 Last Admin: 03/30/19 07:30 Dose: 1 puffs Documented by: Tramadol HCl (Ultram) 50 mg PO Q4H PRN PRN Reason: Pain Stop: 04/19/19 03:15 Last Admin: 03/30/19 05:39 Dose: 50 mg Documented by: Warfarin Sodium (Coumadin) 10 mg PO DAILY@1600 [facility] Stop: 04/25/19 15:59 Last Admin: 03/29/19 16:12 Dose: 10 mg Documented by: (1) Pulmonary embolism Acute cor pulmonale presence: without acute cor pulmonale Chronicity: chronic Pulmonary embolism type: unspecified Qualified Code(s): I27.82 - Chronic pulmonary embolism
[2019-03-30] MEDS: WARFARIN SOD 10 MG TAB PO SCH (16:21)
--- NOTE | 2019-03-30 16:47 | Hospitalist Progress Note ---
Date of Service March 30, 2019 Assessment & Plan (1) Acute on chronic diastolic congestive heart failure, NYHA class 3: Volume overload felt to be secondary to right heart failure, obesity hypoventilation syndrome, noncompliance. Restrict sodium and fluids, restricting sodium to 1500 mg/day and fluids to less than 2000 mL/day Continue Strict I's and O's Continue IV lasix drip Creatinine mildly elevated Cardiology on board recommended to continue diuresing Wait dropped to 201 kg today Continue 1.8L fluid restriction Edema of the legs and fluid overload have not been any better since admission Will consider to transition to oral diuretic Tomorrow if creatinine continue to bump Continue monitor BMP Ileus Repeat KUB showed no change in mildly dilated gas-filled loops of small bowel within the left upper quadrant. Surgery on board recommended no surgical intervention GI on board Tolerated diet well Continue laxative Had Normal BM Resolved Ileus (2) Hematuria: Possible secondary to trauma and complicated by supratherapeutic INR Has indwelling Fontaine catheter due to prostatic hypertrophy Urology on board recommending to changing fontaine catheter towards 3 to 4 days before completed course of abx Continue flomax and finasteride Hemoglobin has been stable No more hematuria Resolved (3) Indwelling Fontaine catheter present: UTI Urine cx grew enterococcus faecalis IV Zosyn changed to Augmentin Continue Augmentin to complete a total 10 to 14 days of antibiotic (on day 11 ) Will change fontaine cath today as per urology recommendation (4) Chronic back pain: Has been on chronic pain medications with MS contin and oxycodone He will not be given any prescription of narcotics on discharge He has been getting Dilaudid 1 mg twice daily for increasing back pain Will not be given any pain medications on discharge except the pain medication that he has been getting before Current regimen of narcotics and pain medications seems to be controlling his pain Dilaudid discontinued (5) Atypical chest pain: Complains to have chest pain Has had chest pain before without any evidence of ACS Serial cardiac enzymes have been negative EKG showed no ST changes Stable (6) Elevated lactic acid level: His lactic acid was mildly elevated on admission Possible related to infection UA positive for enterococcus faecalis Blood cx no growth Zosyn changed to Augmentin Resolved (7) Pulmonary embolism: History of pulmonary embolism on Coumadin Recurrent admission with supratherapeutic INR INR was more than 10 on admission and received Vit K INR is subtherapeutic, starting on heparin drip until INR therapeutic Continue coumadin 10mg today INR 1.7 today Monitor INR closely (8) Morbid obesity: Limited physical activity due to obesity Continue PT and OT evaluation and follow the recommendation (9) COPD (chronic obstructive pulmonary disease): Has more shortness of breath Does not have any COPD exacerbation (10) Depression with anxiety: Seems to be stable Continue current medications DVT px on heparin drip Continue INR until INR therapeutic CODE Status Full code Disposition Has been on intravenous Lasix infusion now Will transfer to [facility] once stable from cardiac standpoint Subjective Pt was seen and examined Sitting on the recliner with no distress Pt said that he can feel that he still retains a lot of fluid He said that he had therapy today He said that he gets tired too easy He is asking for IV pain med before changing his fontaine due to the pain Denies any chest pain, palpitation, dizziness and SOB Physical Exam Physical Exam: General- No acute distress Head- atraumatic Eyes- PERRL, EOMI, ENT- oropharynx clear Neck- supple, no JVD Lungs- diminished BS Heart- regular rhythm; no murmur Abdomen- normal bowel sounds, obese Extremities- no calf tenderness, +edema Neuro- alert, oriented x 3; PERRL, EOMI; no facial palsy; no dysarthria Skin- warm & dry Results & Data Vital Signs (Past 12 Hours) Vital Signs Temp Pulse Pulse Resp BP BP Pulse Ox 03/30/19 16:09 96 H 03/30/19 15:36 37.1 C 86 17 104/72 91 03/30/19 12:20 37.0 C 87 22 104/69 90 03/30/19 06:34 37.0 C 86 18 138/74 90 (1) Hematuria Hematuria type: unspecified type Qualified Code(s): R31.9 - Hematuria, unspecified (2) COPD (chronic obstructive pulmonary disease) COPD type: emphysema Emphysema type: unspecified Qualified Code(s): J43.9 - Emphysema, unspecified (3) Pulmonary embolism Acute cor pulmonale presence: without acute cor pulmonale Chronicity: chronic Pulmonary embolism type: unspecified Qualified Code(s): I27.82 - Chronic pulmonary embolism
[2019-03-30] MEDS ORDERED: HYDROmorphone INJ 1 MG/ML SYRINGE IV ONE (18:15)
[2019-03-30] MEDS: LORazepam 1 MG TAB PO PRN (21:19)
[2019-03-31] MEDS: FUROSEMIDE 100 MG in DEXTROSE 5% 90 ML IV SCH ×2 (01:53→09:01)
[2019-03-31] MEDS: Heparin Adult STANDARD Wt-Based Dextrose 5% 25,000 units/500 mL IV SCH (03:14)
[2019-03-31] MEDS: OXYCODONE HCL IR 5 MG TAB (IMMEDIATE RELEASE) PO PRN ×5 (03:30→22:58)
[2019-03-31] MEDS: TRAMADOL HCL 50 MG TABLET PO PRN ×4 (06:07→22:36)
[2019-03-31] MEDS: ISOSORBIDE DINITRATE 10 MG TAB PO SCH ×2 (06:07→11:47)
[2019-03-31 07:16] LABS: INR 2.3 (0.9-1.1); Partial Thromboplastin Ratio 2.7
[2019-03-31 07:23] LABS: Partial Thromboplastin Time 73.5 Seconds (21.0-31.0)
[2019-03-31 07:28] LABS: BUN Creatinine Ratio 14.2 (10-20); Calcium 9.6 mg/dl (8.5-10.1); Creatinine Clr Calc Pharmacy 109.9 ml/min; Est GFR (African American) 64.5; Est GFR (Non-African American) 55.6; Potassium 3.7 mmol/L (3.5-5.1)
[2019-03-31] MEDS: FLUTICASONE PROPIONATE NA SPR 16 GM BTL SCH (07:52)
[2019-03-31] MEDS: POLYETHYLENE (MIRALAX) 17 GM PACK PO SCH ×2 (07:52→21:08)
[2019-03-31] MEDS: NICOTINE 21 MG/24 HR TDSY TD SCH (07:52)
[2019-03-31] MEDS: DOCUSATE SODIUM 100 MG CAP PO SCH ×2 (07:52→21:08)
[2019-03-31] MEDS: METOPROLOL SUCC 25MG EXT REL TAB PO SCH ×2 (07:52→21:09)
[2019-03-31] MEDS: CYCLOBENZAPRINE HCL 10 MG TAB PO SCH ×2 (07:53→21:08)
[2019-03-31] MEDS: TAMSULOSIN HCL 0.4 MG CAP PO SCH (07:53)
[2019-03-31] MEDS: FINASTERIDE 5 MG TAB PO SCH (07:53)
[2019-03-31] MEDS: MAGNESIUM OXIDE 400 MG TAB PO SCH (07:53)
[2019-03-31] MEDS: POTASSIUM CHLORIDE 20 MEQ TABCR PO SCH ×3 (07:53→21:10)
[2019-03-31] MEDS: GABAPENTIN 300 MG CAP PO SCH ×3 (07:53→21:08)
[2019-03-31] MEDS: AMOXICILLIN/CLAVULANATE 875 MG TAB PO SCH ×2 (07:53→17:37)
[2019-03-31] MEDS: SPIRONOLACTONE 25 MG TAB PO SCH ×2 (07:53→21:11)
[2019-03-31] MEDS: PANTOprazole 40 MG TAB PO SCH ×2 (07:53→21:09)
[2019-03-31] MEDS: DULOXETINE HCL 60 MG CAP PO SCH (07:53)
[2019-03-31] MEDS: INSULIN ASPART 100 UNITS/ML 3 ML PEN SC SCH ×4 (07:55→21:11)
[2019-03-31] MEDS: MoRPHine SULFATE CR 15 MG TABCR PO SCH ×2 (09:01→21:09)
[2019-03-31] MEDS: TIOTROPIUM BROMIDE 5 PUFF/90 MCG INH INH SCH (09:01)
--- NOTE | 2019-03-31 09:50 | Cardiology Progress Note ---
Date of Service March 31, 2019 Assessment & Plan (1) Right heart failure: Patient with ongoing diuresis. Negative 3 L over the last 24 hours. weight trending down. Continue furosemide infusion Mild increase in creatinine this AM. Stop lasix gtt. Transition back to oral torsemide and spironolactone. Continue potassium. Anticipate discharge later today or tomorrow AM. Recommend therapy/PT. Case discussed with Dr. English. Will sign off. Please notify investigator narcotics emergency response officer with additional questions or concerns. (2) Indwelling Lloyd catheter present: Tolerating Lloyd catheter. (3) Pulmonary embolism: Patient has history of pulmonary embolism diagnosed in September 2018 after he had been hospitalized on multiple occasions. He certainly is at risk for repeat venous thromboembolic event due to hospitalization, stasis. His INR is therapeutic today. Stop heparin. Continue coumadin. Monitor INR Supervising Physician Co-Signing Physician Notes I have reviewed the chart and discussed the case with Ms. Richardson. I have interviewed the patient and examined him I agree that the patient can be transferred to [facility] per internal medicine. Cardiology signs off the case. Subjective Pt was seen and examined Sitting in bed, no acute distress. Reports he has ongoing SOB, fatigue. Does not feel he is ready for discharge today. Creatinine trending up. Denies any worsening chest pain, palpitation, dizziness Review of Systems Review of Systems: All systems reviewed & are unremarkable except as noted in HPI & below Physical Exam Constitutional: WD/WN, vitals as above + morbidly obese Respiratory: normal respiratory effort Auscultation: + diminished lung sounds; no crackles, no rales and no wheezes Cardiovascular: Rate/Rhythm: regular rate and regular rhythm Heart Sounds: no murmur (distant heart sounds) Extremities: + edema (2+ LE edema to knees. Chronic stasis changes) Gastrointestinal (Abdomen): normal bowel sounds, soft, nontender, no hepatosplenomegaly Neurologic: PERRL, EOMI, accommodation nl, no face palsy, no dysarthria Psychiatric: A+Ox3, euthymic affect Results & Data Vital Signs (Past 12 Hours) Vital Signs Temp Pulse Pulse Resp BP Pulse Ox 03/31/19 07:12 36.8 C 91 H 18 157/73 H 91 03/31/19 03:36 36.7 C 79 18 129/78 92 03/30/19 23:17 36.9 C 88 20 138/74 91 03/30/19 23:01 89 Laboratory Results 03/31/19 03/31/19 03/31/19 Range/Units 07:38 06:41 06:41 PT 22.0 H (9.0-12.0) Seconds INR 2.3 H (0.9-1.1) APTT 73.5 H* (21.0-31.0) Seconds PTT Ratio 2.7 Sodium 132 L (136-145) mmol/L Potassium 3.7 (3.5-5.1) mmol/L Chloride 95 L (98-107) mmol/L Carbon Dioxide 32 (21-32) mmol/L Anion Gap 5.0 (3-11) BUN 21 H (7-18) mg/dl Creatinine 1.47 H (0.6-1.4) mg/dl Est Cr Clr Drug Dosing 109.9 ml/min Est GFR ( Amer) 64.5 Est GFR (Non-Af Amer) 55.6 BUN/Creatinine Ratio 14.2 (10-20) Glucose 168 H (70-99) mg/dl POC Glucose 178 H (70-99) Calcium 9.6 (8.5-10.1) mg/dl 03/30/19 03/30/19 03/30/19 Range/Units 20:27 16:54 11:38 PT (9.0-12.0) Seconds INR (0.9-1.1) APTT (21.0-31.0) Seconds PTT Ratio Sodium (136-145) mmol/L Potassium (3.5-5.1) mmol/L Chloride (98-107) mmol/L Carbon Dioxide (21-32) mmol/L Anion Gap (3-11) BUN (7-18) mg/dl Creatinine (0.6-1.4) mg/dl Est Cr Clr Drug Dosing ml/min Est GFR ( Amer) Est GFR (Non-Af Amer) BUN/Creatinine Ratio (10-20) Glucose (70-99) mg/dl POC Glucose 194 H 178 H 153 H (70-99) Calcium (8.5-10.1) mg/dl Medications Administered Current Inpatient Medications Acetaminophen (Tylenol) 650 mg PO Q4H PRN PRN Reason: Pain or Fever Stop: 04/19/19 03:15 Albuterol (Duoneb) 3 ml INH Q4H PRN PRN Reason: Shortness Of Breath Or Wheezing Stop: 04/19/19 03:15 Albuterol (Ventolin Hfa) 2 puffs INH Q4H PRN PRN Reason: Wheezing Stop: 04/19/19 03:15 Last Admin: 03/24/19 17:47 Dose: 2 puffs Documented by: Amoxicillin/Clavulanate Potassium (Augmentin 875mg) 1 tab PO BIDM [facility] Stop: 04/01/19 16:59 Last Admin: 03/31/19 07:53 Dose: 1 tab Documented by: Cyclobenzaprine HCl (Flexeril) 10 mg PO BID [facility] Stop: 04/19/19 08:59 Last Admin: 03/31/19 07:53 Dose: 10 mg Documented by: Docusate Sodium (Colace) 100 mg PO BID [facility] Stop: 04/19/19 08:59 Last Admin: 03/31/19 07:52 Dose: 100 mg Documented by: Duloxetine HCl (Cymbalta) 60 mg PO QAM [facility] Stop: 04/19/19 08:59 Last Admin: 03/31/19 07:53 Dose: 60 mg Documented by: Finasteride (Proscar) 5 mg PO QAM [facility] Stop: 04/19/19 08:59 Last Admin: 03/31/19 07:53 Dose: 5 mg Documented by: Fluticasone Propionate (Flonase) 2 sprays NA QAM [facility] Stop: 04/19/19 08:59 Last Admin: 03/31/19 07:52 Dose: 2 sprays Documented by: Gabapentin (Neurontin) 300 mg PO TID [facility] Stop: 04/19/19 08:59 Last Admin: 03/31/19 07:53 Dose: 300 mg Documented by: Guaifenesin (Organidin Nr) 200 mg PO Q6H PRN PRN Reason: cough Stop: 04/28/19 08:14 Last Admin: 03/29/19 08:37 Dose: 200 mg Documented by: Hydroxyzine HCl (Vistaril) 25 mg PO QID PRN PRN Reason: Anxiety Stop: 04/19/19 03:15 Insulin Aspart (Novolog Flexpen) 0 units SC [facility] Stop: 04/19/19 16:29 Last Admin: 03/31/19 07:55 Dose: 11 units Documented by: Isosorbide Dinitrate (Isordil) 10 mg PO BID@0700,1200 [facility] Stop: 04/19/19 06:59 Last Admin: 03/31/19 06:07 Dose: 10 mg Documented by: Lorazepam (Ativan) 1 mg PO TID PRN PRN Reason: Anxiety Stop: 04/19/19 03:15 Last Admin: 03/30/19 21:19 Dose: 1 mg Documented by: Magnesium Oxide (Mag-Ox) 400 mg PO QAM [facility] Stop: 04/19/19 08:59 Last Admin: 03/31/19 07:53 Dose: 400 mg Documented by: Metoprolol Succinate (Toprol Xl) 25 mg PO BID [facility] Stop: 04/19/19 08:59 Last Admin: 03/31/19 07:52 Dose: 25 mg Documented by: Miscellaneous (Remove Nicoderm Patch) 1 ea N/A HS [facility] Stop: 04/21/19 20:59 Last Admin: 03/30/19 21:11 Dose: Not Given Documented by: Morphine Sulfate (Ms Contin) 15 mg PO Q12H [facility] Stop: 04/03/19 08:59 Last Admin: 03/31/19 09:01 Dose: 15 mg Documented by: Nicotine (Nicoderm Cq) 21 mg TD [facility] Stop: 04/21/19 12:44 Last Admin: 03/31/19 07:52 Dose: 21 mg Documented by: Nitroglycerin (Nitrostat) 0.4 mg SL UD PRN PRN Reason: Chest Pain Stop: 04/19/19 03:15 Nystatin (Mycostatin) 1 appln EXT BID PRN PRN Reason: Rash Stop: 04/19/19 03:15 Ondansetron HCl (Zofran) 4 mg IV Q6H PRN PRN Reason: Nausea Stop: 04/19/19 03:15 Last Admin: 03/28/19 15:50 Dose: 4 mg Documented by: Oxycodone HCl (Roxicodone Immediate Rel) 15 mg PO Q4H PRN PRN Reason: Breakthrough Pain Stop: 04/03/19 03:15 Last Admin: 03/31/19 09:01 Dose: 15 mg Documented by: Pantoprazole Sodium (Protonix) 40 mg PO BID [facility] Stop: 04/19/19 20:59 Last Admin: 03/31/19 07:53 Dose: 40 mg Documented by: Polyethylene Glycol (Miralax Powder Packet) 34 gm PO BID [facility] Stop: 04/22/19 08:59 Last Admin: 03/31/19 07:52 Dose: 34 gm Documented by: Polyethylene Glycol (Miralax Powder Packet) 17 gm PO DAILY PRN PRN Reason: Constipation Stop: 04/19/19 03:15 Last Admin: 03/22/19 12:39 Dose: 17 gm Documented by: Potassium Chloride (Klor-Con M20) 40 meq PO TID [facility] Stop: 04/26/19 13:59 Last Admin: 03/31/19 07:53 Dose: 40 meq Documented by: Promethazine HCl (Phenergan) 25 mg PO Q6H PRN PRN Reason: Nausea And Vomiting Stop: 04/28/19 17:40 Last Admin: 03/30/19 22:34 Dose: 25 mg Documented by: Sodium Biphosphate/Sodium Phosphate (Fleet Enema) 133 ml [place] DAILY PRN PRN Reason: Constipation Stop: 04/19/19 03:15 Last Admin: 03/22/19 20:07 Dose: 132 ml Documented by: Spironolactone (Aldactone) 50 mg PO BID [facility] Stop: 04/19/19 08:59 Last Admin: 03/31/19 07:53 Dose: 50 mg Documented by: Tamsulosin HCl (Flomax) 0.4 mg PO DAILY [facility] Stop: 04/19/19 08:59 Last Admin: 03/31/19 07:53 Dose: 0.4 mg Documented by: Tiotropium [place] (Spiriva) 1 puffs INH DAILY [facility] Stop: 04/19/19 08:59 Last Admin: 03/31/19 09:01 Dose: 1 puffs Documented by: Torsemide (Demadex) 20 mg PO BID17 [facility] Stop: 04/30/19 16:59 Tramadol HCl (Ultram) 50 mg PO Q4H PRN PRN Reason: Pain Stop: 04/19/19 03:15 Last Admin: 03/31/19 06:07 Dose: 50 mg Documented by: Warfarin Sodium (Coumadin) 10 mg PO DAILY@1600 [facility] Stop: 04/25/19 15:59 Last Admin: 03/30/19 16:21 Dose: 10 mg Documented by: (1) Pulmonary embolism Acute cor pulmonale presence: without acute cor pulmonale Chronicity: chronic Pulmonary embolism type: unspecified Qualified Code(s): I27.82 - Chronic pulmonary embolism
[2019-03-31] MEDS ORDERED: HYDROmorphone INJ 1 MG/ML SYRINGE IV STA ×2 (10:06→18:35)
[2019-03-31] MEDS: WARFARIN SOD 10 MG TAB PO SCH (15:53)
[2019-03-31] MEDS ORDERED: SODIUM CHLORIDE 0.9% 1000ML 1,000 ML IV SCH (16:45)
--- NOTE | 2019-03-31 16:45 | Hospitalist Progress Note ---
Date of Service March 31, 2019 Assessment & Plan (1) Acute on chronic diastolic congestive heart failure, NYHA class 3: Volume overload felt to be secondary to right heart failure, obesity hypoventilation syndrome, noncompliance. Restrict sodium and fluids, restricting sodium to 1500 mg/day and fluids to less than 2000 mL/day Continue Strict I's and O's Continue IV lasix drip Creatinine mildly elevated Cardiology on board recommended to continue diuresing Wait dropped to 201 kg today Continue 1.8L fluid restriction Has been feeling better clinically Leg swelling is better We will change Lasix drip to torsemide 20 mg twice daily Likely discharge tomorrow Ileus Repeat KUB showed no change in mildly dilated gas-filled loops of small bowel within the left upper quadrant. Surgery on board recommended no surgical intervention GI on board Tolerated diet well Continue laxative Had Normal BM Resolved Ileus (2) Hematuria: Possible secondary to trauma and complicated by supratherapeutic INR Has indwelling Fontaine catheter due to prostatic hypertrophy Urology on board recommending to changing fontaine catheter towards 3 to 4 days before completed course of abx Continue flomax and finasteride Hemoglobin has been stable No more hematuria Resolved and catheter change Increasing pain in the penile area-we will give 1 mg of Dilaudid today (3) Indwelling Fontaine catheter present: UTI Urine cx grew enterococcus faecalis IV Zosyn changed to Augmentin Continue Augmentin to complete a total 10 to 14 days of antibiotic (on day 12 ) Will change fontaine cath today as per urology recommendation Need to have outpatient urology appointment on discharge (4) Chronic back pain: Has been on chronic pain medications with MS contin and oxycodone He will not be given any prescription of narcotics on discharge He has been getting Dilaudid 1 mg twice daily for increasing back pain Will not be given any pain medications on discharge except the pain medication that he has been getting before Current regimen of narcotics and pain medications seems to be controlling his pain Dilaudid discontinued and is being given as needed (5) Atypical chest pain: Complains to have chest pain Has had chest pain before without any evidence of ACS Serial cardiac enzymes have been negative EKG showed no ST changes Stable (6) Elevated lactic acid level: His lactic acid was mildly elevated on admission Possible related to infection UA positive for enterococcus faecalis Blood cx no growth Zosyn changed to Augmentin Resolved (7) Pulmonary embolism: History of pulmonary embolism on Coumadin Recurrent admission with supratherapeutic INR INR was more than 10 on admission and received Vit K INR is subtherapeutic, starting on heparin drip until INR therapeutic Continue coumadin 10mg today INR 1.7 today Monitor INR closely INR therapeutic we will continue Coumadin (8) Morbid obesity: Limited physical activity due to obesity Continue PT and OT evaluation and follow the recommendation (9) COPD (chronic obstructive pulmonary disease): Has more shortness of breath Does not have any COPD exacerbation (10) Depression with anxiety: Seems to be stable Continue current medications DVT px on heparin drip Continue INR until INR therapeutic CODE Status Full code Disposition Has been on intravenous Lasix infusion now Will transfer to [facility] once stable from cardiac standpoint We will transfer the patient to [facility] tomorrow at 2 PM Subjective 03/31 The patient was seen and examined medical floor He is Fontaine catheter changed yesterday and he has been complaining of a lot of pain at the insertion site Otherwise he remains stable Review of Systems Review of Systems: All systems reviewed and are unremarkable except as noted below Constitutional: + weakness, + weight gain and + problem reported (Increasing pain the lower back) Cardiovascular: + edema (Bilateral lower extremity edema 1+-improved a lot since admission) Gastrointestinal: Complains right lower quadrant pain. CT of the abdomen&pelvis have been negative except nephrolithiasis as before Musculoskeletal: Increasing pain in the lower back with radiation to right leg Neurologic: + generalized weakness Physical Exam Physical Exam: Lying in bed comfortably Constitutional: well developed, well nourished and + morbidly obese; no acute distress and not ill appearing Eyes: PERRL, conjunctivae normal, anicteric sclerae ENMT: external ear and nose normal, oropharynx normal Neck: trachea midline, no thyromegaly Respiratory: + respiratory distress (Minimal distress at rest) Auscultation: + diminished lung sounds and + crackles (Bibasilar and minimal) Cardiovascular: Rate/Rhythm: regular rate and regular rhythm Extremities: + edema (Decreased to 1+ edema bilaterally) Gastrointestinal (Abdomen): Inspection/Auscultation: + abdomen distended and normal bowel sounds Percussion/Palpation: abdomen soft; abdomen nontender Neurologic: moves all extremities Psychiatric: A+Ox3, euthymic affect Genitourinary: no CVA tenderness Lymphatic: no cervical or axillary lymphadenopathy Results & Data Vital Signs (Past 12 Hours) Vital Signs Temp Pulse Pulse Resp BP Pulse Ox 03/31/19 15:44 93 H 03/31/19 14:34 36.9 C 92 H 18 116/77 92 03/31/19 11:22 36.9 C 86 18 131/81 93 03/31/19 07:12 36.8 C 91 H 18 157/73 H 91 Laboratory Results BMP 03/31/19 06:41 Sodium 132 L Potassium 3.7 Chloride 95 L Carbon Dioxide 32 BUN 21 H Creatinine 1.47 H Glucose 168 H Calcium 9.6 Medications Administered Current Inpatient Medications Acetaminophen (Tylenol) 650 mg PO Q4H PRN PRN Reason: Pain or Fever Stop: 04/19/19 03:15 Albuterol (Duoneb) 3 ml INH Q4H PRN PRN Reason: Shortness Of Breath Or Wheezing Stop: 04/19/19 03:15 Albuterol (Ventolin Hfa) 2 puffs INH Q4H PRN PRN Reason: Wheezing Stop: 04/19/19 03:15 Last Admin: 03/24/19 17:47 Dose: 2 puffs Documented by: Amoxicillin/Clavulanate Potassium (Augmentin 875mg) 1 tab PO BIDM [facility] Stop: 04/01/19 16:59 Last Admin: 03/31/19 07:53 Dose: 1 tab Documented by: Cyclobenzaprine HCl (Flexeril) 10 mg PO BID [facility] Stop: 04/19/19 08:59 Last Admin: 03/31/19 07:53 Dose: 10 mg Documented by: Docusate Sodium (Colace) 100 mg PO BID [facility] Stop: 04/19/19 08:59 Last Admin: 03/31/19 07:52 Dose: 100 mg Documented by: Duloxetine HCl (Cymbalta) 60 mg PO QAM [facility] Stop: 04/19/19 08:59 Last Admin: 03/31/19 07:53 Dose: 60 mg Documented by: Finasteride (Proscar) 5 mg PO QAM [facility] Stop: 04/19/19 08:59 Last Admin: 03/31/19 07:53 Dose: 5 mg Documented by: Fluticasone Propionate (Flonase) 2 sprays NA QAM [facility] Stop: 04/19/19 08:59 Last Admin: 03/31/19 07:52 Dose: 2 sprays Documented by: Gabapentin (Neurontin) 300 mg PO TID [facility] Stop: 04/19/19 08:59 Last Admin: 03/31/19 13:15 Dose: 300 mg Documented by: Guaifenesin (Organidin Nr) 200 mg PO Q6H PRN PRN Reason: cough Stop: 04/28/19 08:14 Last Admin: 03/29/19 08:37 Dose: 200 mg Documented by: Hydroxyzine HCl (Vistaril) 25 mg PO QID PRN PRN Reason: Anxiety Stop: 04/19/19 03:15 Insulin Aspart (Novolog Flexpen) 0 units SC ACHS [facility] Stop: 04/19/19 16:29 Last Admin: 03/31/19 11:47 Dose: 11 units Documented by: Isosorbide Dinitrate (Isordil) 10 mg PO BID@0700,1200 [facility] Stop: 04/19/19 06:59 Last Admin: 03/31/19 11:47 Dose: 10 mg Documented by: Lorazepam (Ativan) 1 mg PO TID PRN PRN Reason: Anxiety Stop: 04/19/19 03:15 Last Admin: 03/30/19 21:19 Dose: 1 mg Documented by: Magnesium Oxide (Mag-Ox) 400 mg PO QAM [facility] Stop: 04/19/19 08:59 Last Admin: 03/31/19 07:53 Dose: 400 mg Documented by: Metoprolol Succinate (Toprol Xl) 25 mg PO BID [facility] Stop: 04/19/19 08:59 Last Admin: 03/31/19 07:52 Dose: 25 mg Documented by: Miscellaneous (Remove Nicoderm Patch) 1 ea N/A HS [facility] Stop: 04/21/19 20:59 Last Admin: 03/30/19 21:11 Dose: Not Given Documented by: Morphine Sulfate (Ms Contin) 15 mg PO Q12H [facility] Stop: 04/03/19 08:59 Last Admin: 03/31/19 09:01 Dose: 15 mg Documented by: Nicotine (Nicoderm Cq) 21 mg TD QAM [facility] Stop: 04/21/19 12:44 Last Admin: 03/31/19 07:52 Dose: 21 mg Documented by: Nitroglycerin (Nitrostat) 0.4 mg SL UD PRN PRN Reason: Chest Pain Stop: 04/19/19 03:15 Nystatin (Mycostatin) 1 appln EXT BID PRN PRN Reason: Rash Stop: 04/19/19 03:15 Ondansetron HCl (Zofran) 4 mg IV Q6H PRN PRN Reason: Nausea Stop: 04/19/19 03:15 Last Admin: 03/28/19 15:50 Dose: 4 mg Documented by: Oxycodone HCl (Roxicodone Immediate Rel) 15 mg PO Q4H PRN PRN Reason: Breakthrough Pain Stop: 04/03/19 03:15 Last Admin: 03/31/19 13:13 Dose: 15 mg Documented by: Pantoprazole Sodium (Protonix) 40 mg PO BID [facility] Stop: 04/19/19 20:59 Last Admin: 03/31/19 07:53 Dose: 40 mg Documented by: Polyethylene Glycol (Miralax Powder Packet) 34 gm PO BID [facility] Stop: 04/22/19 08:59 Last Admin: 03/31/19 07:52 Dose: 34 gm Documented by: Polyethylene Glycol (Miralax Powder Packet) 17 gm PO DAILY PRN PRN Reason: Constipation Stop: 04/19/19 03:15 Last Admin: 03/22/19 12:39 Dose: 17 gm Documented by: Potassium Chloride (Klor-Con M20) 40 meq PO TID [facility] Stop: 04/26/19 13:59 Last Admin: 03/31/19 13:15 Dose: 40 meq Documented by: Promethazine HCl (Phenergan) 25 mg PO Q6H PRN PRN Reason: Nausea And Vomiting Stop: 04/28/19 17:40 Last Admin: 03/30/19 22:34 Dose: 25 mg Documented by: Sodium Biphosphate/Sodium Phosphate (Fleet Enema) 133 ml [place] DAILY PRN PRN Reason: Constipation Stop: 04/19/19 03:15 Last Admin: 03/22/19 20:07 Dose: 132 ml Documented by: Spironolactone (Aldactone) 50 mg PO BID [facility] Stop: 04/19/19 08:59 Last Admin: 03/31/19 07:53 Dose: 50 mg Documented by: Tamsulosin HCl (Flomax) 0.4 mg PO DAILY [facility] Stop: 04/19/19 08:59 Last Admin: 03/31/19 07:53 Dose: 0.4 mg Documented by: Tiotropium [place] (Spiriva) 1 puffs INH DAILY [facility] Stop: 04/19/19 08:59 Last Admin: 03/31/19 09:01 Dose: 1 puffs Documented by: Torsemide (Demadex) 20 mg PO BID17 [facility] Stop: 04/30/19 16:59 Tramadol HCl (Ultram) 50 mg PO Q4H PRN PRN Reason: Pain Stop: 04/19/19 03:15 Last Admin: 03/31/19 11:47 Dose: 50 mg Documented by: Warfarin Sodium (Coumadin) 10 mg PO DAILY@1600 [facility] Stop: 04/25/19 15:59 Last Admin: 03/31/19 15:53 Dose: 10 mg Documented by: (1) Hematuria Hematuria type: unspecified type Qualified Code(s): R31.9 - Hematuria, unspecified (2) Pulmonary embolism Pulmonary embolism type: unspecified Chronicity: chronic Acute cor pulmonale presence: without acute cor pulmonale Qualified Code(s): I27.82 - Chronic pulmonary embolism (3) COPD (chronic obstructive pulmonary disease) COPD type: emphysema Emphysema type: unspecified Qualified Code(s): J43.9 - Emphysema, unspecified
--- NOTE | 2019-03-31 16:54 | Cardiac Catheterization ---
Date of Service March 31, 2019 Cardiac Cath Report Cardiac Cath Report Procedure: 1. Coronary angiography 2. Aortography History: This is a 48-year-old male patient with a previous history of coronary interventions and coronary artery bypass surgery. His previous cardiac catheterization revealed an occluded right coronary artery as well as the LAD and circumflex arteries proximally. His YUN graft to the LAD was patent and the saphenous vein graft to the left circumflex artery was patent. He presented with atrial fibrillation with RVR converting spontaneously to sinus rhythm. He had an elevation in his cardiac troponins to 7. Procedure summary: After informed consent was obtained the patient was taken to the cardiac catheterization lab where he was prepped and draped in the usual manner for a transfemoral approach. An attempt was made to access the right femoral artery however, the wire would not advance and therefore the site was abandoned. [place] was then obtained from the left femoral artery with success. Preformed 5 [place] diagnostic catheters were utilized for the coronary angiograms. A pigtail catheter was utilized for the aortogram. The arterial site was closed using the Mynx device. The patient was returned to his room in stable condition. Coronary angiography: Selective injections of the right coronary artery revealed to be occluded in its mid segment. Selective injections of the left coronary artery reveal occlusion of the LAD proximally as well as the left circumflex artery. The saphenous vein graft to the left circumflex artery is occluded. The YUN graft to the LAD is patent with a 60% stenosis just distal to the anastomosis site. The YUN graft supplies good antegrade and retrograde flow to the LAD as well as the distal right coronary artery and left circumflex arteries by collaterals. Aortography: Selective injections into the a sending aorta fails to reveal any evidence of the prior saphenous vein graft. Summary: The patient has severe [place] vessel coronary artery disease with total occlusions of the proximal LAD and left circumflex artery as well as occlusion of the mid right coronary artery. The saphenous vein graft to the left circumflex artery is occluded. The YUN graft to the LAD is patent with a 60% stenosis just after the anastomotic site. The YUN graft supplies both the LAD as well as right coronary and left circumflex arteries by collaterals. Recommendations: Recommendations at this time are for continued medical management of the patient's coronary artery disease.
[2019-03-31] MEDS: TORSEMIDE 10 MG TAB PO SCH (17:38)
[2019-03-31] MEDS: LORazepam 1 MG TAB PO PRN (21:07)
[2019-03-31] MEDS: PROMETHAZINE HCL 25 MG TAB PO PRN (21:08)
[2019-04-01] MEDS: OXYCODONE HCL IR 5 MG TAB (IMMEDIATE RELEASE) PO PRN ×5 (03:25→22:46)
[2019-04-01 06:23] LABS: INR 3.5 (0.9-1.1); Prothrombin Time 32.4 Seconds (9.0-12.0)
[2019-04-01 06:39] LABS: BUN Creatinine Ratio 18.1 (10-20); Creatinine Clr Calc Pharmacy 124.3 ml/min; Est GFR (African American) 74.8; Est GFR (Non-African American) 64.5; Magnesium 2.7 mg/dl (1.8-2.4); Potassium 4.3 mmol/L (3.5-5.1)
[2019-04-01] MEDS: ISOSORBIDE DINITRATE 10 MG TAB PO SCH ×2 (06:41→12:16)
[2019-04-01] MEDS ORDERED: HYDROmorphone INJ 1 MG/ML SYRINGE IV STA (08:04)
[2019-04-01] MEDS: POLYETHYLENE (MIRALAX) 17 GM PACK PO SCH ×2 (08:09→20:32)
[2019-04-01] MEDS ORDERED: HYDROmorphone INJ 1 MG/ML SYRINGE ONE (08:14)
[2019-04-01] MEDS: DOCUSATE SODIUM 100 MG CAP PO SCH ×2 (08:15→20:33)
[2019-04-01] MEDS: ALBUTEROL HFA 8 GM INHALER INH PRN (08:17)
[2019-04-01] MEDS: MoRPHine SULFATE CR 15 MG TABCR PO SCH ×2 (08:17→20:31)
[2019-04-01] MEDS: TIOTROPIUM BROMIDE 5 PUFF/90 MCG INH INH SCH (08:18)
[2019-04-01] MEDS: FLUTICASONE PROPIONATE NA SPR 16 GM BTL SCH (08:18)
[2019-04-01] MEDS: TORSEMIDE 10 MG TAB PO SCH ×2 (08:19→17:52)
[2019-04-01] MEDS: METOPROLOL SUCC 25MG EXT REL TAB PO SCH ×2 (08:19→20:34)
[2019-04-01] MEDS: GABAPENTIN 300 MG CAP PO SCH ×3 (08:19→20:33)
[2019-04-01] MEDS: POTASSIUM CHLORIDE 20 MEQ TABCR PO SCH ×3 (08:20→20:32)
[2019-04-01] MEDS: AMOXICILLIN/CLAVULANATE 875 MG TAB PO SCH (08:20)
[2019-04-01] MEDS: DULOXETINE HCL 60 MG CAP PO SCH (08:20)
[2019-04-01] MEDS: CYCLOBENZAPRINE HCL 10 MG TAB PO SCH ×2 (08:20→20:33)
[2019-04-01] MEDS: PANTOprazole 40 MG TAB PO SCH ×2 (08:21→20:33)
[2019-04-01] MEDS: TAMSULOSIN HCL 0.4 MG CAP PO SCH (08:21)
[2019-04-01] MEDS: SPIRONOLACTONE 25 MG TAB PO SCH ×2 (08:21→20:31)
[2019-04-01] MEDS: FINASTERIDE 5 MG TAB PO SCH (08:21)
[2019-04-01] MEDS: MAGNESIUM OXIDE 400 MG TAB PO SCH (08:22)
[2019-04-01] MEDS: NICOTINE 21 MG/24 HR TDSY TD SCH (08:22)
[2019-04-01] MEDS: INSULIN ASPART 100 UNITS/ML 3 ML PEN SC SCH ×4 (08:35→20:42)
[2019-04-01 08:56] LABS: Basophils # (auto) 0.05 K/uL (0-0.2); Basophils % (auto) 0.3 %; Eosinophils # (auto) 0.49 K/uL (0-0.5); Eosinophils % (auto) 3.2 %; Hematocrit (blood only) 36.8 % (42-52); Hemoglobin 11.4 g/dL (14.0-18.0); Immature Granulocytes # (auto) 0.28 K/uL (0.00-0.02); Immature Granulocytes % (auto) 1.8 %; Lymphocytes % (auto) 16.8 %; Mean Corpuscular Volume 77.1 fL (80-100); Mean Platelet Volume 10.1 fL (7.4-10.4); Monocytes % (auto) 10.3 %; Neutrophils # (auto) 10.48 K/uL (1.4-6.5); Neutrophils % (auto) 67.6 %; Nucleated RBC # (auto) 0.03 K/uL (0-0); Nucleated RBC % (auto) 0.2 %; Platelet Count 313 K/uL (130-400); RDW Coefficient of Variation 17.3 % (11.5-14.5); RDW Standard Deviation 48.8 fL (36.4-46.3); Red Blood Count 4.77 M/uL (4.7-6.1)
[2019-04-01] MEDS: TRAMADOL HCL 50 MG TABLET PO PRN ×2 (11:26→15:42)
[2019-04-01] MEDS: ONDANSETRON INJ 2 MG/ML 2 ML VIAL IV PRN (11:27)
--- NOTE | 2019-04-01 12:00 | Hospitalist Progress Note ---
Date of Service April 01, 2019 Assessment & Plan (1) Acute on chronic diastolic congestive heart failure, NYHA class 3: Volume overload felt to be secondary to right heart failure, obesity hypoventilation syndrome, noncompliance. Restrict sodium and fluids, restricting sodium to 1500 mg/day and fluids to less than 2000 mL/day Continue Strict I's and O's Continue IV lasix drip -changed to oral Lasix from 03/31 Creatinine mildly elevated Cardiology on board recommended to continue diuresing Weight dropped to 201 kg today Continue 1.8L fluid restriction We will change Lasix drip to torsemide 20 mg twice daily Clinically much better with decreasing bilateral leg swelling Kidney function shows improvement with oral torsemide He will be discharged to [facility] this afternoon Ileus Repeat KUB showed no change in mildly dilated gas-filled loops of small bowel within the left upper quadrant. Surgery on board recommended no surgical intervention GI on board Tolerated diet well Continue laxative Had Normal BM Resolved Ileus (2) Hematuria: Possible secondary to trauma and complicated by supratherapeutic INR Has indwelling Fontaine catheter due to prostatic hypertrophy Urology on board recommending to changing fontaine catheter towards 3 to 4 days before completed course of abx Continue flomax and finasteride Hemoglobin has been stable No more hematuria Resolved and catheter change Increasing pain in the penile area-we will give 1 mg of Dilaudid today No more complaints from the catheter He will have an outpatient appointment with urologist (3) Indwelling Fontaine catheter present: UTI Urine cx grew enterococcus faecalis IV Zosyn changed to Augmentin Continue Augmentin to complete a total 10 to 14 days of antibiotic (on day 12 ) Will change fontaine cath today as per urology recommendation Need to have outpatient urology appointment on discharge (4) Chronic back pain: Has been on chronic pain medications with MS contin and oxycodone He will not be given any prescription of narcotics on discharge He has been getting Dilaudid 1 mg twice daily for increasing back pain Will not be given any pain medications on discharge except the pain medication that he has been getting before Current regimen of narcotics and pain medications seems to be controlling his pain Dilaudid discontinued and is being given as needed We will continue his usual pain medications he will not be given any prescriptions of narcotics on discharge (5) Atypical chest pain: Complains to have chest pain Has had chest pain before without any evidence of ACS Serial cardiac enzymes have been negative EKG showed no ST changes Stable (6) Elevated lactic acid level: His lactic acid was mildly elevated on admission Possible related to infection UA positive for enterococcus faecalis Blood cx no growth Zosyn changed to Augmentin Resolved (7) Pulmonary embolism: History of pulmonary embolism on Coumadin Recurrent admission with supratherapeutic INR INR was more than 10 on admission and received Vit K INR is subtherapeutic, starting on heparin drip until INR therapeutic Continue coumadin 10mg today INR 1.7 today Monitor INR closely INR therapeutic we will continue Coumadin Coumadin will be continued (8) Morbid obesity: Limited physical activity due to obesity Continue PT and OT evaluation and follow the recommendation (9) COPD (chronic obstructive pulmonary disease): Has more shortness of breath Does not have any COPD exacerbation (10) Depression with anxiety: Seems to be stable Continue current medications DVT px on heparin drip Continue INR until INR therapeutic CODE Status Full code Disposition Has been on intravenous Lasix infusion now Will transfer to [facility] once stable from cardiac standpoint We will transfer the patient to [facility] today at 2 PM Subjective 03/31 The patient was seen and examined medical floor He is Fontaine catheter changed yesterday and he has been complaining of a lot of pain at the insertion site Otherwise he remains stable 04/01 The patient was seen and examined in medical floor He has been stable for the last 2 days and does not have any significant symptoms He will be transferred to [facility] at 2 PM today Review of Systems Review of Systems: All systems reviewed and are unremarkable except as noted below Constitutional: + weakness and + weight gain Respiratory: no cough and no dyspnea Cardiovascular: + edema (Bilateral lower extremity edema 1+-improved a lot since admission); no chest pain Gastrointestinal: no abdominal pain, no bloating, no nausea and no vomiting Complains right lower quadrant pain. CT of the abdomen&pelvis have been negative except nephrolithiasis as before Musculoskeletal: + back pain (Chronic back pain without any exacerbation); no radicular pain Increasing pain in the lower back with radiation to right leg Neurologic: + generalized weakness Physical Exam Physical Exam: Sitting on a chair outside bed without any acute symptoms Constitutional: well developed, well nourished and + morbidly obese; no acute distress and not ill appearing Eyes: PERRL, conjunctivae normal, anicteric sclerae ENMT: external ear and nose normal, oropharynx normal Neck: trachea midline, no thyromegaly Respiratory: normal respiratory effort Auscultation: + diminished lung sounds and + crackles (Bibasilar and minimal) Cardiovascular: Rate/Rhythm: regular rate and regular rhythm Extremities: + edema (Decreased to 1+ edema bilaterally) Gastrointestinal (Abdomen): Inspection/Auscultation: + abdomen distended and normal bowel sounds Percussion/Palpation: abdomen soft; abdomen nontender Musculoskeletal: Chronic back pain without radiation and no acute arthritis in any of the joints Neurologic: moves all extremities Psychiatric: A+Ox3, euthymic affect Genitourinary: no CVA tenderness Lymphatic: no cervical or axillary lymphadenopathy Results & Data Vital Signs (Past 12 Hours) Vital Signs Temp Pulse Pulse Resp BP Pulse Ox 04/01/19 11:30 36.3 C L 81 18 103/71 93 04/01/19 07:43 36.3 C L 66 20 146/90 H 90 04/01/19 04:58 82 04/01/19 03:52 36.8 C 75 18 113/77 94 Laboratory Results Short CBC 04/01/19 Range/Units 08:42 WBC 15.50 H (4.8-10.8) K/uL Hgb 11.4 L (14.0-18.0) g/dL Hct 36.8 L (42-52) % Plt Count 313 (130-400) K/uL BMP 04/01/19 05:38 Sodium 138 Potassium 4.3 D Chloride 102 Carbon Dioxide 31 BUN 24 H Creatinine 1.30 Glucose 137 H Calcium 10.0 Medications Administered Current Inpatient Medications Acetaminophen (Tylenol) 650 mg PO Q4H PRN PRN Reason: Pain or Fever Stop: 04/19/19 03:15 Albuterol (Duoneb) 3 ml INH Q4H PRN PRN Reason: Shortness Of Breath Or Wheezing Stop: 04/19/19 03:15 Albuterol (Ventolin Hfa) 2 puffs INH Q4H PRN PRN Reason: Wheezing Stop: 04/19/19 03:15 Last Admin: 04/01/19 08:17 Dose: 2 puffs Documented by: Amoxicillin/Clavulanate Potassium (Augmentin 875mg) 1 tab PO BIDM EMPERATRIZ Stop: 04/01/19 16:59 Last Admin: 04/01/19 08:20 Dose: 1 tab Documented by: Cyclobenzaprine HCl (Flexeril) 10 mg PO BID [facility] Stop: 04/19/19 08:59 Last Admin: 04/01/19 08:20 Dose: 10 mg Documented by: Docusate Sodium (Colace) 100 mg PO BID [facility] Stop: 04/19/19 08:59 Last Admin: 04/01/19 08:15 Dose: Not Given Documented by: Duloxetine [facility] (Cymbalta) [facility] [place] Stop: 04/19/19 08:59 Last Admin: 04/01/19 08:20 Dose: 60 mg Documented by: Finasteride (Proscar) 5 mg PO QAM [facility] Stop: 04/19/19 08:59 Last Admin: 04/01/19 08:21 Dose: 5 mg Documented by: Fluticasone Propionate (Flonase) 2 sprays NA [facility] Stop: 04/19/19 08:59 Last Admin: 04/01/19 08:18 Dose: 2 sprays Documented by: Gabapentin (Neurontin) 300 mg PO TID [facility] Stop: 04/19/19 08:59 Last Admin: 04/01/19 08:19 Dose: 300 mg Documented by: Guaifenesin (Organidin Nr) 200 mg PO Q6H PRN PRN Reason: cough Stop: 04/28/19 08:14 Last Admin: 03/29/19 08:37 Dose: 200 mg Documented by: Hydroxyzine HCl (Vistaril) 25 mg PO QID PRN PRN Reason: Anxiety Stop: 04/19/19 03:15 Insulin Aspart (Novolog Flexpen) 0 units SC [facility] Stop: 04/19/19 16:29 Last Admin: 04/01/19 08:35 Dose: 5 units Documented by: Isosorbide Dinitrate (Isordil) 10 mg PO BID@0700,1200 [facility] Stop: 04/19/19 06:59 Last Admin: 04/01/19 06:41 Dose: 10 mg Documented by: Lorazepam (Ativan) 1 mg PO TID PRN PRN Reason: Anxiety Stop: 04/19/19 03:15 Last Admin: 03/31/19 21:07 Dose: 1 mg Documented by: Magnesium Oxide (Mag-Ox) 400 [facility] [place] Stop: 04/19/19 08:59 Last Admin: 04/01/19 08:22 Dose: 400 mg Documented by: Metoprolol Succinate (Toprol Xl) 25 mg PO BID [facility] Stop: 04/19/19 08:59 Last Admin: 04/01/19 08:19 Dose: 25 mg Documented by: Miscellaneous (Remove Nicoderm Patch) 1 ea N/A HS [facility] Stop: 04/21/19 20:59 Last Admin: 03/31/19 21:09 Dose: Not Given Documented by: Morphine Sulfate (Ms Contin) 15 mg PO Q12H [facility] Stop: 04/03/19 08:59 Last Admin: 04/01/19 08:17 Dose: 15 mg Documented by: Nicotine (Nicoderm Cq) 21 mg TD QAM [facility] Stop: 04/21/19 12:44 Last Admin: 04/01/19 08:22 Dose: 21 mg Documented by: Nitroglycerin (Nitrostat) 0.4 mg SL UD PRN PRN Reason: Chest Pain Stop: 04/19/19 03:15 Nystatin (Mycostatin) 1 appln EXT BID PRN PRN Reason: Rash Stop: 04/19/19 03:15 Ondansetron HCl (Zofran) 4 mg IV Q6H PRN PRN Reason: Nausea Stop: 04/19/19 03:15 Last Admin: 04/01/19 11:27 Dose: 4 mg Documented by: Oxycodone HCl (Roxicodone Immediate Rel) 15 mg PO Q4H PRN PRN Reason: Breakthrough Pain Stop: 04/03/19 03:15 Last Admin: 04/01/19 10:07 Dose: 15 mg Documented by: Pantoprazole Sodium (Protonix) 40 mg PO BID [facility] Stop: 04/19/19 20:59 Last Admin: 04/01/19 08:21 Dose: 40 mg Documented by: Polyethylene Glycol (Miralax Powder Packet) 34 gm PO BID [facility] Stop: 04/22/19 08:59 Last Admin: 04/01/19 08:09 Dose: Not Given Documented by: Polyethylene Glycol (Miralax Powder Packet) 17 gm PO DAILY PRN PRN Reason: Constipation Stop: 04/19/19 03:15 Last Admin: 03/22/19 12:39 Dose: 17 gm Documented by: Potassium Chloride (Klor-Con M20) 40 meq PO TID [facility] Stop: 04/26/19 13:59 Last Admin: 04/01/19 08:20 Dose: 40 meq Documented by: Promethazine HCl (Phenergan) 25 mg PO Q6H PRN PRN Reason: Nausea And Vomiting Stop: 04/28/19 17:40 Last Admin: 03/31/19 21:08 Dose: 25 mg Documented by: Sodium Biphosphate/Sodium Phosphate (Fleet Enema) 133 ml MI DAILY PRN PRN Reason: Constipation Stop: 04/19/19 03:15 Last Admin: 03/22/19 20:07 Dose: 132 ml Documented by: Spironolactone (Aldactone) 50 mg PO BID [facility] Stop: 04/19/19 08:59 Last Admin: 04/01/19 08:21 Dose: 50 mg Documented by: Tamsulosin HCl (Flomax) 0.4 mg PO DAILY [facility] Stop: 04/19/19 08:59 Last Admin: 04/01/19 08:21 Dose: 0.4 mg Documented by: Tiotropium Broaddus (Spiriva) 1 puffs INH DAILY [facility] Stop: 04/19/19 08:59 Last Admin: 04/01/19 08:18 Dose: 1 puffs Documented by: Torsemide (Demadex) 20 mg PO BID17 [facility] Stop: 04/30/19 16:59 Last Admin: 04/01/19 08:19 Dose: 20 mg Documented by: Tramadol HCl (Ultram) 50 mg PO Q4H PRN PRN Reason: Pain Stop: 04/19/19 03:15 Last Admin: 04/01/19 11:26 Dose: 50 mg Documented by: Warfarin Sodium (Coumadin) 10 mg PO DAILY@1600 [facility] Stop: 04/25/19 15:59 Last Admin: 03/31/19 15:53 Dose: 10 mg Documented by: (1) Hematuria Hematuria type: unspecified type Qualified Code(s): R31.9 - Hematuria, unspecified (2) Pulmonary embolism Pulmonary embolism type: unspecified Chronicity: chronic Acute cor pulmonale presence: without acute cor pulmonale Qualified Code(s): I27.82 - Chronic pulmonary embolism (3) COPD (chronic obstructive pulmonary disease) COPD type: emphysema Emphysema type: unspecified Qualified Code(s): J43.9 - Emphysema, unspecified
[2019-04-01] MEDS ORDERED: HYDROmorphone INJ 1 MG/ML SYRINGE IV SCH (12:30)
[2019-04-01] MEDS: LORazepam 1 MG TAB PO PRN (23:03)
[2019-04-01] MEDS: PROMETHAZINE HCL 25 MG TAB PO PRN (23:04)
[2019-04-02] MEDS: TRAMADOL HCL 50 MG TABLET PO PRN ×3 (01:40→17:26)
[2019-04-02] MEDS: OXYCODONE HCL IR 5 MG TAB (IMMEDIATE RELEASE) PO PRN ×4 (03:39→23:40)
[2019-04-02] MEDS: POLYETHYLENE (MIRALAX) 17 GM PACK PO SCH ×2 (07:42→20:55)
[2019-04-02] MEDS: DOCUSATE SODIUM 100 MG CAP PO SCH ×2 (07:42→20:55)
[2019-04-02] MEDS: ISOSORBIDE DINITRATE 10 MG TAB PO SCH ×2 (07:45→12:00)
[2019-04-02] MEDS: FLUTICASONE PROPIONATE NA SPR 16 GM BTL SCH (07:45)
[2019-04-02] MEDS: MoRPHine SULFATE CR 15 MG TABCR PO SCH ×2 (07:45→20:51)
[2019-04-02] MEDS: FINASTERIDE 5 MG TAB PO SCH (07:46)
[2019-04-02] MEDS: METOPROLOL SUCC 25MG EXT REL TAB PO SCH ×2 (07:46→20:52)
[2019-04-02] MEDS: PANTOprazole 40 MG TAB PO SCH ×2 (07:46→20:52)
[2019-04-02] MEDS: MAGNESIUM OXIDE 400 MG TAB PO SCH (07:47)
[2019-04-02] MEDS: TAMSULOSIN HCL 0.4 MG CAP PO SCH (07:47)
[2019-04-02] MEDS: GABAPENTIN 300 MG CAP PO SCH ×3 (07:47→20:53)
[2019-04-02] MEDS: TORSEMIDE 10 MG TAB PO SCH ×2 (07:48→17:02)
[2019-04-02] MEDS: POTASSIUM CHLORIDE 20 MEQ TABCR PO SCH ×3 (07:48→20:54)
[2019-04-02] MEDS: TIOTROPIUM BROMIDE 5 PUFF/90 MCG INH INH SCH (07:49)
[2019-04-02] MEDS: CYCLOBENZAPRINE HCL 10 MG TAB PO SCH ×2 (07:49→20:53)
[2019-04-02] MEDS: NICOTINE 21 MG/24 HR TDSY TD SCH (07:50)
[2019-04-02] MEDS: SPIRONOLACTONE 25 MG TAB PO SCH ×2 (07:50→20:53)
[2019-04-02] MEDS: DULOXETINE HCL 60 MG CAP PO SCH (07:51)
[2019-04-02] MEDS: INSULIN ASPART 100 UNITS/ML 3 ML PEN SC SCH ×4 (07:53→20:54)
[2019-04-02] MEDS ORDERED: HYDROmorphone INJ 2 MG/ML SYR/VIAL IV STA (14:14)
[2019-04-02] MEDS ORDERED: WARFARIN SOD 7.5 MG TAB PO SCH (16:00)
--- NOTE | 2019-04-02 16:05 | Hospitalist Progress Note ---
Date of Service April 02, 2019 Assessment & Plan (1) Acute on chronic diastolic congestive heart failure, NYHA class 3: Volume overload felt to be secondary to right heart failure, obesity hypoventilation syndrome, noncompliance. Restrict sodium and fluids, restricting sodium to 1500 mg/day and fluids to less than 2000 mL/day Continue Strict I's and O's Continue IV lasix drip -changed to oral Lasix from 03/31 Creatinine mildly elevated Cardiology on board recommended to continue diuresing Weight dropped to 201 kg today Continue 1.8L fluid restriction We will change Lasix drip to torsemide 20 mg twice daily Clinically much better with decreasing bilateral leg swelling Kidney function shows improvement with oral torsemide He will be discharged to [facility] on Wednesday Ileus Repeat KUB showed no change in mildly dilated gas-filled loops of small bowel within the left upper quadrant. Surgery on board recommended no surgical intervention GI on board Tolerated diet well Continue laxative Had Normal BM Resolved Ileus (2) Hematuria: Possible secondary to trauma and complicated by supratherapeutic INR Has indwelling Fontaine catheter due to prostatic hypertrophy Urology on board recommending to changing fontaine catheter towards 3 to 4 days before completed course of abx Continue flomax and finasteride Hemoglobin has been stable No more hematuria Resolved and catheter change Increasing pain in the penile area-we will give 1 mg of Dilaudid today No more complaints from the catheter He will have an outpatient appointment with urologist (3) Indwelling Fontaine catheter present: UTI Urine cx grew enterococcus faecalis IV Zosyn changed to Augmentin Continue Augmentin to complete a total 10 to 14 days of antibiotic (on day 12 ) Will change fontaine cath today as per urology recommendation Need to have outpatient urology appointment on discharge (4) Chronic back pain: Has been on chronic pain medications with MS contin and oxycodone He will not be given any prescription of narcotics on discharge He has been getting Dilaudid 1 mg twice daily for increasing back pain Will not be given any pain medications on discharge except the pain medication that he has been getting before Current regimen of narcotics and pain medications seems to be controlling his pain Dilaudid discontinued and is being given as needed We will continue his usual pain medications He will not get any more intravenous Dilaudid in the hospital until clearly indicated (5) Atypical chest pain: Complains to have chest pain Has had chest pain before without any evidence of ACS Serial cardiac enzymes have been negative EKG showed no ST changes Stable (6) Elevated lactic acid level: His lactic acid was mildly elevated on admission Possible related to infection UA positive for enterococcus faecalis Blood cx no growth Zosyn changed to Augmentin Resolved (7) Pulmonary embolism: History of pulmonary embolism on Coumadin Recurrent admission with supratherapeutic INR INR was more than 10 on admission and received Vit K INR is subtherapeutic, starting on heparin drip until INR therapeutic Continue coumadin 10mg today INR 1.7 today Monitor INR closely INR therapeutic we will continue Coumadin Coumadin will be continued Check INR tomorrow (8) Morbid obesity: Limited physical activity due to obesity Continue PT and OT evaluation and follow the recommendation (9) COPD (chronic obstructive pulmonary disease): Has more shortness of breath Does not have any COPD exacerbation (10) Depression with anxiety: Seems to be stable Continue current medications DVT px on heparin drip Continue INR until INR therapeutic CODE Status Full code Disposition Has been on intravenous Lasix infusion now He will be going to [facility] tomorrow Subjective 03/29 the patient was seen and examined in ICU in the presence of the She is an 81-year-old female with significant past medical history of atrial fibrillation, hypertension, hyperlipidemia and peripheral vascular disease was admitted with abdominal pain, fever and chills with weakness She has been feeling better as of today Denies any acute symptoms of abdominal pain, nausea no vomiting, any fever and chills 03/30 The patient was seen and examined in telemetry unit She has been feeling off today Complains to have abdominal discomfort without any significant pain Has any fever and looks very anxious 03/31 Patient was seen and examined in telemetry unit He has been feeling a little bit better but remains weak He denies any other significant symptoms 04/01 The patient is seen and examined in telemetry unit She has been feeling a lot better and out of bed on a chair Her only complaint is weakness 04/02 The patient was seen and examined in medical floor He has been out of bed and complaining of more pain at the catheter insertion site today He denies any chest pain no palpitation Review of Systems Review of Systems: All systems reviewed and are unremarkable except as noted below Constitutional: + weakness and + weight gain Cardiovascular: + edema (Bilateral lower extremity edema 1+-improved a lot since admission); no chest pain Gastrointestinal: Complains right lower quadrant pain. CT of the abdomen& pelvis have been negative except nephrolithiasis as before Musculoskeletal: + back pain (Chronic back pain without any exacerbation); no radicular pain Increasing pain in the lower back with radiation to right leg Neurologic: + generalized weakness Physical Exam Physical Exam: Sitting on a chair out of bed without any acute symptoms except some pain at the Fontaine catheter insertion site Constitutional: well developed, well nourished and + morbidly obese; no acute distress and not ill appearing Eyes: PERRL, conjunctivae normal, anicteric sclerae ENMT: external ear and nose normal, oropharynx normal Neck: trachea midline, no thyromegaly Respiratory: normal respiratory effort Auscultation: + diminished lung so unds and + crackles (Bibasilar and minimal) Cardiovascular: Rate/Rhythm: regular rate and regular rhythm Extremities: + edema (Decreased to 1+ edema bilaterally) Gastrointestinal (Abdomen): Inspection/Auscultation: + abdomen distended and normal bowel sounds Percussion/Palpation: abdomen soft; abdomen nontender Neurologic: moves all extremities Alert , 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 .no focal neuro deficit Psychiatric: A+Ox3, euthymic affect Genitourinary: no CVA tenderness Lymphatic: no cervical or axillary lymphadenopathy Results & Data Vital Signs (Past 12 Hours) Vital Signs Temp Pulse Resp BP BP Pulse Ox 04/02/19 15:04 37.0 C 86 20 132/74 91 04/02/19 07:24 36.7 C 80 16 144/78 H 92 (1) Hematuria Hematuria type: unspecified type Qualified Code(s): R31.9 - Hematuria, unspecified (2) Pulmonary embolism Pulmonary embolism type: unspecified Chronicity: chronic Acute cor pulmonale presence: without acute cor pulmonale Qualified Code(s): I27.82 - Chronic pulmonary embolism (3) COPD (chronic obstructive pulmonary disease) COPD type: emphysema Emphysema type: unspecified Qualified Code(s): J43.9 - Emphysema, unspecified
[2019-04-02 16:42] LABS: INR 3.6 (0.9-1.1)
[2019-04-02] MEDS ORDERED: HYDROmorphone INJ 1 MG/ML SYRINGE IV STA (19:02)
[2019-04-03] MEDS: ISOSORBIDE DINITRATE 10 MG TAB PO SCH ×2 (06:38→12:45)
[2019-04-03 07:42] LABS: Basophils # (auto) 0.04 K/uL (0-0.2); Basophils % (auto) 0.3 %; Eosinophils # (auto) 0.46 K/uL (0-0.5); Eosinophils % (auto) 3.7 %; Hematocrit (blood only) 35.2 % (42-52); Hemoglobin 10.9 g/dL (14.0-18.0); Immature Granulocytes # (auto) 0.17 K/uL (0.00-0.02); Immature Granulocytes % (auto) 1.4 %; Lymphocytes # (auto) 1.93 K/uL (1.2-3.4); Lymphocytes % (auto) 15.4 %; Mean Platelet Volume 10.2 fL (7.4-10.4); Monocytes # (auto) 0.95 K/uL (0.11-0.59); Monocytes % (auto) 7.6 %; Neutrophils # (auto) 8.98 K/uL (1.4-6.5); Neutrophils % (auto) 71.6 %; Platelet Count 313 K/uL (130-400); RDW Coefficient of Variation 17.4 % (11.5-14.5); RDW Standard Deviation 49.8 fL (36.4-46.3); Red Blood Count 4.51 M/uL (4.7-6.1); White Blood Count 12.53 K/uL (4.8-10.8)
[2019-04-03 07:51] LABS: INR 2.7 (0.9-1.1); Prothrombin Time 25.7 Seconds (9.0-12.0)
[2019-04-03 08:19] LABS: BUN Creatinine Ratio 19.9 (10-20); Calcium 10.1 mg/dl (8.5-10.1); Creatinine Clr Calc Pharmacy 130.3 ml/min; Est GFR (African American) 79.2; Est GFR (Non-African American) 68.3; Potassium 4.6 mmol/L (3.5-5.1)
[2019-04-03] MEDS: POLYETHYLENE (MIRALAX) 17 GM PACK PO SCH ×2 (08:50→22:00)
[2019-04-03] MEDS: DOCUSATE SODIUM 100 MG CAP PO SCH ×2 (08:51→22:00)
[2019-04-03] MEDS: TAMSULOSIN HCL 0.4 MG CAP PO SCH (08:51)
[2019-04-03] MEDS: FINASTERIDE 5 MG TAB PO SCH (08:52)
[2019-04-03] MEDS: MAGNESIUM OXIDE 400 MG TAB PO SCH (08:52)
[2019-04-03] MEDS: DULOXETINE HCL 60 MG CAP PO SCH (08:53)
[2019-04-03] MEDS: NICOTINE 21 MG/24 HR TDSY TD SCH (08:53)
[2019-04-03] MEDS: CYCLOBENZAPRINE HCL 10 MG TAB PO SCH ×2 (08:53→22:05)
[2019-04-03] MEDS: GABAPENTIN 300 MG CAP PO SCH ×3 (08:54→22:05)
[2019-04-03] MEDS: METOPROLOL SUCC 25MG EXT REL TAB PO SCH ×2 (08:54→22:05)
[2019-04-03] MEDS: PANTOprazole 40 MG TAB PO SCH ×2 (08:55→22:05)
[2019-04-03] MEDS: TIOTROPIUM BROMIDE 5 PUFF/90 MCG INH INH SCH (08:55)
[2019-04-03] MEDS: FLUTICASONE PROPIONATE NA SPR 16 GM BTL SCH (08:56)
[2019-04-03] MEDS: POTASSIUM CHLORIDE 20 MEQ TABCR PO SCH ×3 (08:57→22:05)
[2019-04-03] MEDS: TORSEMIDE 10 MG TAB PO SCH ×2 (08:57→18:26)
[2019-04-03] MEDS: SPIRONOLACTONE 25 MG TAB PO SCH ×2 (08:58→22:04)
[2019-04-03] MEDS: INSULIN ASPART 100 UNITS/ML 3 ML PEN SC SCH ×4 (09:00→22:01)
--- NOTE | 2019-04-03 11:53 | CT Scan Report ---
CT cervical spine wo con CT DOSE: 1424.56 mGy.cm HISTORY: Pain. Trauma. neck pain, s/p fall TECHNIQUE: Multiaxial CT images of the cervical spine were performed and reformatted in the sagittal and coronal plane without the use of contrast. A dose lowering technique was utilized adhering to e principles of ALARA. COMPARISON: None. FINDINGS: Trace amount of fluid within the left and to a lesser extent right maxillary sinus. Moderat e hypertrophic and/or edematous changes of the ethmoid sinuses as well as posterior inferior left mas toid sinus. Vertebral body stature is unremarkable. No evidence for compression deformity. Moderate generalized d egenerative change. Muscle spasm with moderate reversal of the normal cervical curvature. IMPRESSION: 1. Muscular spasm of the cervical spine. 2. No acute bony abnormality. 3. Moderate diffuse sinusitis. The above report was generated using voice recognition software. It may contain grammatical, syntax or spelling errors. Electronically signed by: Owen Flowers M.D. 04/03/2019 11:52 AM
--- NOTE | 2019-04-03 11:55 | CT Scan Report ---
CT head/brain wo con CLINICAL HISTORY: 48 years-old Male presenting with s/p fall, neck pain, r/o hemorrhage. TECHNIQUE: Multidetector CT imaging of the head was performed without the use of intravenous contrast . IV contrast: None. One or more dose lowering techniques were used consistent with the principles of ALARA (as low as reasonably achievable), including automatic exposure control, mA or kV adjustment t o individual patient size, and/or use of iterative reconstruction. COMPARISON: 02/04/2019. CT DOSE (mGy.cm): The estimated cumulative dose is 1424.56. FINDINGS: [employer] topogram: The patient is edentulous. Posttraumatic deformity of the left clavicle. Ventricles and sulci normal in size. No hemorrhage. Brain parenchyma normal in appearance with preser nani donald-white differentiation. No acute territorial infarct. No mass effect or midline shift. No ext ra-axial fluid collection. Extensive mucosal thickening in the paranasal sinuses. Fluid in the left m astoid air cells. Calvarium intact. IMPRESSION: 1. No acute intracranial abnormality. 2. Nonspecific extensive paranasal sinus mucosal thickening. Electronically signed by: Joey Merida M.D. 04/03/2019 11:54 AM
--- NOTE | 2019-04-03 12:10 | XRay Report ---
XR ribs LT min 3V w [id number] CLINICAL HISTORY: Left rib pain status post trauma COMPARISON STUDY: Chest x-ray dated 03/26/2019 FINDINGS: Direct chest reveals borderline cardiac enlargement. There is no pneumothorax. There is an old left clavicular fracture. There are trace pleural effusions. No left-sided rib fractures are visualized. IMPRESSION: No evidence of pneumothorax. No left-sided rib fractures are visualized. Electronically signed by: Luis Castro M.D. 04/03/2019 12:09 PM
[2019-04-03] MEDS: MoRPHine SULFATE CR 15 MG TABCR PO SCH ×2 (12:41→22:08)
[2019-04-03] MEDS: OXYCODONE HCL IR 5 MG TAB (IMMEDIATE RELEASE) PO PRN ×3 (12:44→20:48)
--- NOTE | 2019-04-03 13:14 | Discharge Summary ---
Date of Service April 03, 2019 Admission HPI Per Admitting Provider DATE OF ADMISSION: 03/20/2019 CHIEF COMPLAINT: Hematuria, weight gain. HISTORY OF PRESENT ILLNESS: This is a 48-year-old male with past medical history significant for chronic diastolic CHF; pulmonary embolism, on Coumadin; hypertension; morbid obesity; COPD; ongoing tobacco abuse; depression; anxiety; migraines; history of recurrent admissions for CHF; and chronic pain. Recently also had ESBL UTI treated with Invanz for 4-5 days, history of BPH on Fontaine. Supposed to see urology for voiding trial. Recently was in the hospital for diastolic CHF treated with IV Lasix and discharged on torsemide 20 mg p.o. b.i.d. on 03/09/2019. Next day, he was in the ER with hematuria that resolved in the ER and discharged home. Comes back because he started having hematuria on Wednesday evening 6:00 p.m. and he is also having this chronic abdominal pain but says this worse today and chronic chest pain. Also has this chronic back pain, having headaches. He is getting short of breath. He said he gained 13 pounds in the last 1 day, so he came to the ER. He says he is taking his Coumadin regularly. His recent Coumadin level on 03/09/2019 was 5. He is taking 7.5 mg of Coumadin currently. Denies any blood in stools or black stools. Appetite is okay. No dysphagia. Has cough, no phlegm. Gets short of breath easily, not ambulating much because of shortness of breath and chronic back pain. No blurred visions. No sore throat. Currently, the patient is somewhat tachycardic. Lactic acid level of 2.8. He said he has low-grade fevers the last couple of days. He is agreeing to go to rehabilitation. ALLERGIES: DEPAKOTE, FENTANYL, AND TYLENOL. PAST MEDICAL HISTORY: As mentioned above. PAST SURGICAL HISTORY: Colonoscopy with biopsy, EUS, repair of left extensor tendons, simple repair of the scalp and neck, etc. MEDICATIONS: The patient is on albuterol 2 puffs every 4 hours p.r.n., aspirin 81 mg p.o. daily, cyclobenzaprine 10 mg p.o. b.i.d., Colace 100 mg p.o. b.i.d., duloxetine 60 mg p.o. a.m., finasteride 5 mg p.o. a.m., Fleet's enema p.r.n., Flonase 2 sprays intranasally a.m., gabapentin 300 mg p.o. t.i.d., hydroxyzine 25 mg p.o. q.i.d. p.r.n., DuoNebs every 4 hours p.r.n., isosorbide dinitrate 10 mg p.o. b.i.d., Ativan 1 mg p.o. t.i.d. p.r.n., magnesium oxide 400 mg p.o. a.m., metoprolol succinate 25 mg p.o. b.i.d., MS Contin 50 mg p.o. q. 12 hours, nitroglycerin 0.4 mg sublingual p.r.n., nystatin 1 application topically b.i.d. p.r.n., omeprazole 20 mg p.o. q.a.m., Zofran 4 mg p.o. q. 4 hours p.r.n., oxycodone 15 mg p.o. q. 4 hours p.r.n., MiraLax 17 grams p.o. 24 hours p.r.n., potassium chloride 10 mEq p.o. b.i.d., Spiriva inhaler 1 puff inhalation daily, spironolactone 50 mg p.o. b.i.d., Flomax 0.4 mg p.o. daily, torsemide 20 mg p.o. b.i.d., tramadol 50 mg p.o. q. 4 hours p.r.n., Coumadin 7.5 mg p.o. q.p.m. FAMILY HISTORY: Significant for sister has breast cancer. Mother has musculoskeletal disorder. Maternal grandfather has heart disorder. Paternal grandfather has lung disorder. Maternal grandmother has heart disorder. SOCIAL HISTORY: Lives with his grandkids and . Smoking about a pack a day. No alcohol history. Prescription narcotic pain medication dependence. REVIEW OF SYMPTOMS: As per HPI. Rest of the review of systems negative. Admission Exam Per Admitting Provider PHYSICAL EXAMINATION: GENERAL: The patient is morbidly obese, not in acute distress. VITAL SIGNS: Temperature 36.5, pulse 113, respiratory rate 17, blood pressure 118/75, oxygen 98% on room air. HEENT: No pallor, no icterus. Pupils equal, round, and reactive to light. NECK: No JVD, no neck masses, no carotid bruits. CARDIOVASCULAR: S1, S2 heard. Tachycardia. No murmurs. RESPIRATORY SYSTEM: Normal AP diameter. No accessory muscle use. Mild expiratory wheezing present. No crackles heard. ABDOMEN: Soft, bowel sounds present. Tenderness in the right lower quadrant. No guarding, no rigidity, no distention. CENTRAL NERVOUS SYSTEM: Cranial nerves II-XII grossly intact, nonfocal. EXTREMITIES: Bilateral lower extremity gross edema present . B/l lower extremity mild erythema. LABORATORY DATA: WBC 10.15, hemoglobin 10.5, hematocrit 33.6, platelets 246. Principal Diagnosis ACUTE ON CHRONIC CONGESTIVE HEART FAILURE EXACERBATION Discharge Exam General- oriented x 3, not in distress, speaks in sentences with no effort or accessory muscle use Eyes- anicteric Head- (+) Neck- no JVD Lungs- clear breath sounds bilaterally, no rales/wheezes Heart- normal rate, regular rhythm; no murmurs Abdomen- normal bowel sounds, nondistended, soft, nontender Extremities- no pretibial edema, no calf tenderness Neuro- alert, oriented x 3; no gross focal neurologic deficits Skin- warm & dry Discharge Data Allergies Allergy/AdvReac Type Severity Reaction Status Date / Time fentanyl Allergy Intermediate RASH/HIVES/SKIN Verified 03/19/19 22:10 REDNESS acetaminophen AdvReac Intermediate Unknown Verified 03/19/19 22:10 valproic acid AdvReac Intermediate PANCREATITS Verified 03/19/19 22:10 Consultations 03/20/19 01:11 ED Decision to Admit Stat 03/20/19 03:16 Consult Case Management - Discharge Planning Routine 03/20/19 08:00 Consult Cardiology Routine Consult Urology Routine 03/21/19 08:00 Consult General Surgery Routine 03/24/19 07:33 Consult Gastroenterology Routine Ordered Studies 03/20/19 02:14 CT abd pelvis wo con Urgent 04/03/19 11:05 CT cervical spine wo con Stat CT head/brain wo con Stat Hospital Course (1) Acute on chronic diastolic congestive heart failure, NYHA class 3: per Dr. Vasquez's notes: Acute on Chronic Diastolic CHF NYHA Class 3 Volume overload felt to be secondary to right heart failure, obesity hypoventilation syndrome, noncompliance. Plodding Operator consulted required IV Lasix Weight dropped to 201 kg placed on 1.8L fluid restriction changed Lasix drip to torsemide 20 mg twice daily Clinically much better with decreasing bilateral leg swelling Kidney function shows improvement with oral torsemide monitor volume status closely Ileus Repeat KUB showed no change in mildly dilated gas-filled loops of small bowel wi thin the left upper quadrant. Surgery and GI consulted no surgical intervention Continue laxative Had Normal BM Resolved Ileus (2) Hematuria: Possible secondary to trauma and complicated by supratherapeutic INR Has indwelling Fontaine catheter due to prostatic hypertrophy Continue flomax and finasteride Hemoglobin has been stable No more hematuria He will have an outpatient appointment with urologist (3) Indwelling Fontaine catheter present: UTI Urine cx grew enterococcus faecalis IV Zosyn changed to Augmentin completed Augmentin course changed fontaine cathas per urology recommendation Need to have outpatient urology appointment on discharge (4) Chronic back pain: Has been on chronic pain medications with MS contin and oxycodone Current regimen of narcotics and pain medications seems to be controlling his pain continue his usual pain medications (5) Atypical chest pain: Complains to have chest pain Has had chest pain before without any evidence of ACS Serial cardiac enzymes have been negative EKG showed no ST changes Stable (6) Elevated lactic acid level: His lactic acid was mildly elevated on admission Possible related to infection UA positive for enterococcus faecalis Blood cx no growth Zosyn changed to Augmentin Resolved (7) Pulmonary embolism: History of pulmonary embolism on Coumadin Recurrent admission with supratherapeutic INR INR was more than 10 on admission and received Vit K INR is subtherapeutic, starting on heparin drip until INR therapeutic coumadin held for INR > 3 INR today 2.7 reduce coumadin to 5mg po daily check INR daily and adjust coumadin accordingly (8) Morbid obesity: Limited physical activity due to obesity Continue PT and OT evaluation and follow the recommendation (9) COPD (chronic obstructive pulmonary disease): respiratory status stable Does not have any COPD exacerbation (10) Depression with anxiety: Seems to be stable Continue current medications (11) Fall: patient reports passing out while brushing teeth- unwitnessed no prodome, no confusion after was able to get up and return to chair CT head: no hemorrhage CT cervical spine: no acute fractures Rib Xray: no fractures EKG: unremarkable Orthostatic Vitals: negative advised not to get up too quickly monitor Orthostatic VS and ambulate with assistance while at [place] [facility] monitor forehead contusion Total Time Total Time Spent Total Time Spent (In Minutes): 60 minutes Discharge Plan Discharge Items Patient Disposition: Transfer Inpatient Rehab Fac Reason For Visit: HEMATURIA, WEIGHT GAIN Discharge Diagnosis: Acute on chronic diastolic congestive heart failure, NYHA class III-improved with intravenous Lasix drip and now on oral torsemide, hematuria-stopped, has indwelling Fontaine catheter, chronic back pain on narcotics pain medications, history of pulmonary embolism on Coumadin, morbid obesity Condition: Fair Discharge Goals: Decrease discomfort, Improve function and Increase independence Activity: Resume your previous activity Exercise Comment: Assistance with all ambulation when at [place] [facility] Non-emergency contact: Primary Care Provider Call non-emergency contact if: you have any medication questions Follow-up/Referrals: Owen Hogan MD [Primary Care Provider] - (Please make an appointment with your primary care physician within 7 days. 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 Take precautions to avoid fall No new medications or change in medications were done at discharge. Orthostatic Vital Signs should be checked three times per day Please check daily and dose Coumadin accordingly. Monitor BP. He will need to have regular follow-up with PCP, his pain therapist, cupola operator insulation and urologist. Prescriptions: New warfarin [Coumadin] 7.5 mg Tablet 5 mg PO DAILY@1600 30 Days Qty: 30 RF: 0 Continued gabapentin 300 mg Capsule 300 mg PO TID RF: 0 ondansetron 4 mg Tablet,Disintegrating 4 mg PO Q4H PRN (Reason: Nausea And Vomiting) RF: 0 polyethylene glycol 3350 [Miralax] 17 gram powder in packet 17 g PO Q24H PRN (Reason: Constipation) RF: 0 nitroglycerin [Nitrostat] 0.4 mg tablet, sublingual 0.4 mg Sublingual DIRECTED PRN (Reason: CHEST PAIN) RF: 0 docusate sodium 100 mg capsule 100 mg PO BID RF: 0 metoprolol succinate 25 mg tablet extended release 24 hr 25 mg PO BID RF: 0 Fleet Enema 19-7 gram/118 mL Enema 133 ml IN DIRECTED PRN (Reason: Constipation) RF: 0 nystatin 100,000 unit/gram Powder 1 applic TOPICAL BID PRN (Reason: Skin Irritation) RF: 0 ipratropium-albuterol 0.5 mg-3 mg(2.5 mg base)/3 mL Solution For Nebulization 3 ml INHALATION Q4H PRN (Reason: Shortness Of Breath Or Wheezing) RF: 0 magnesium oxide 400 mg (241.3 mg magnesium) Tablet 400 mg PO QAM Qty: 0 RF: 0 spironolactone 50 mg tablet 50 mg PO BID RF: 0 tramadol 50 mg tablet 50 mg PO Q4H PRN (Reason: Pain) RF: 0 oxycodone 15 mg tablet 15 mg PO Q4H PRN (Reason: Breakthrough Pain) RF: 0 morphine [MS Contin] 15 mg tablet extended release 15 mg PO Q12H RF: 0 lorazepam 1 mg tablet 1 mg PO TID PRN (Reason: Anxiety) RF: 0 potassium chloride 10 mEq tablet,ER particles/crystals 10 meq PO BID RF: 0 omeprazole 20 mg capsule,delayed release(DR/EC) 20 mg PO QAM RF: 0 cyclobenzaprine 10 mg Tablet 10 mg PO BID RF: 0 torsemide 10 mg tablet 20 mg PO BID RF: 0 hydroxyzine HCl 25 mg tablet 25 mg PO QID PRN (Reason: Anxiety) RF: 0 fluticasone propionate 50 mcg/actuation spray,suspension 2 spray Intranasal QAM RF: 0 aspirin [Ecotrin Low Strength] 81 mg tablet,delayed release (DR/EC) 81 mg PO QAM RF: 0 duloxetine 60 mg capsule,delayed release(DR/EC) 60 mg PO QAM RF: 0 isosorbide dinitrate 10 mg tablet 10 mg PO BID RF: 0 Spiriva with HandiHaler 18 mcg capsule, w/inhalation device 1 puff inhalation DAILY RF: 0 finasteride 5 mg tablet 5 mg PO QAM RF: 0 tamsulosin [Flomax] 0.4 mg Capsule 0.4 mg PO DAILY RF: 0 albuterol sulfate [Ventolin HFA] 90 mcg/actuation HFA aerosol inhaler 2 puff inhalation Q4H PRN (Reason: Wheezing) RF: 0 Discontinued warfarin [Coumadin] 5 mg tablet 7.5 mg PO QPM RF: 0 Stand-Alone Forms: [facility] Discharge Orders: Discharge Order (Routine); Ordered 04/01/19 Ordered By: Augustus Vasquez Skilled Items Patient informed of condition?: Yes DNR: No Discharge Level of Care: Skilled Communicable Disease: No Discharge Prognosis: Stable Admission Data Admit Date/Time: 03/20/19 02:05 Attending Provider: Augustus Vasquez Admit Provider: Everardo Ibarra Primary Care Provider: Owen Hogan Other Providers: Xu Silvestre ; Augustus Vasquez ; [facility] ; Everardo Ibarra ; Yvon Del Valle ; Dick Cardoza ; Miguel Angel Lee ; Jacob Penn ; Manuel English ; Owen Saavedra ; Berna Richardson ; Josefina Chavez ; Frank Barth ; Owen Barrera ; Eduardo Chapman ; Sandra Mcdonald ; Ramonita Conway Service: Telemetry Medical Other Interventions: Discharge Summary Assessment (RN) Last Done: 04/01/19 12:26
[2019-04-03] MEDS: TRAMADOL HCL 50 MG TABLET PO PRN ×3 (14:09→23:35)
[2019-04-03] MEDS ORDERED: WARFARIN SOD 5 MG TAB PO SCH (16:00)
--- NOTE | 2019-04-03 17:36 | Discharge Summary ---
Date of Service April 03, 2019 Admission HPI Per Admitting Provider DATE OF ADMISSION: 03/20/2019 CHIEF COMPLAINT: Hematuria, weight gain. HISTORY OF PRESENT ILLNESS: This is a 48-year-old male with past medical history significant for chronic diastolic CHF; pulmonary embolism, on Coumadin; hypertension; morbid obesity; COPD; ongoing tobacco abuse; depression; anxiety; migraines; history of recurrent admissions for CHF; and chronic pain. Recently also had ESBL UTI treated with Invanz for 4-5 days, history of BPH on Fontaine. Supposed to see urology for voiding trial. Recently was in the hospital for diastolic CHF treated with IV Lasix and discharged on torsemide 20 mg p.o. b.i.d. on 03/09/2019. Next day, he was in the ER with hematuria that resolved in the ER and discharged home. Comes back because he started having hematuria on Wednesday evening 6:00 p.m. and he is also having this chronic abdominal pain but says this worse today and chronic chest pain. Also has this chronic back pain, having headaches. He is getting short of breath. He said he gained 13 pounds in the last 1 day, so he came to the ER. He says he is taking his Coumadin regularly. His recent Coumadin level on 03/09/2019 was 5. He is taking 7.5 mg of Coumadin currently. Denies any blood in stools or black stools. Appetite is okay. No dysphagia. Has cough, no phlegm. Gets short of breath easily, not ambulating much because of shortness of breath and chronic back pain. No blurred visions. No sore throat. Currently, the patient is somewhat tachycardic. Lactic acid level of 2.8. He said he has low-grade fevers the last couple of days. He is agreeing to go to rehabilitation. ALLERGIES: DEPAKOTE, FENTANYL, AND TYLENOL. PAST MEDICAL HISTORY: As mentioned above. PAST SURGICAL HISTORY: Colonoscopy with biopsy, EUS, repair of left extensor tendons, simple repair of the scalp and neck, etc. MEDICATIONS: The patient is on albuterol 2 puffs every 4 hours p.r.n., aspirin 81 mg p.o. daily, cyclobenzaprine 10 mg p.o. b.i.d., Colace 100 mg p.o. b.i.d., duloxetine 60 mg p.o. a.m., finasteride 5 mg p.o. a.m., Fleet's enema p.r.n., Flonase 2 sprays intranasally a.m., gabapentin 300 mg p.o. t.i.d., hydroxyzine 25 mg p.o. q.i.d. p.r.n., DuoNebs every 4 hours p.r.n., isosorbide dinitrate 10 mg p.o. b.i.d., Ativan 1 mg p.o. t.i.d. p.r.n., magnesium oxide 400 mg p.o. a.m., metoprolol succinate 25 mg p.o. b.i.d., MS Contin 50 mg p.o. q. 12 hours, nitroglycerin 0.4 mg sublingual p.r.n., nystatin 1 application topically b.i.d. p.r.n., omeprazole 20 mg p.o. q.a.m., Zofran 4 mg p.o. q. 4 hours p.r.n., oxycodone 15 mg p.o. q. 4 hours p.r.n., MiraLax 17 grams p.o. 24 hours p.r.n., potassium chloride 10 mEq p.o. b.i.d., Spiriva inhaler 1 puff inhalation daily, spironolactone 50 mg p.o. b.i.d., Flomax 0.4 mg p.o. daily, torsemide 20 mg p.o. b.i.d., tramadol 50 mg p.o. q. 4 hours p.r.n., Coumadin 7.5 mg p.o. q.p.m. FAMILY HISTORY: Significant for sister has breast cancer. Mother has musculoskeletal disorder. Maternal grandfather has heart disorder. Paternal grandfather has lung disorder. Maternal grandmother has heart disorder. SOCIAL HISTORY: Lives with his grandkids and . Smoking about a pack a day. No alcohol history. Prescription narcotic pain medication dependence. REVIEW OF SYMPTOMS: As per HPI. Rest of the review of systems negative. Discharge Data Allergies Allergy/AdvReac Type Severity Reaction Status Date / Time fentanyl Allergy Intermediate RASH/HIVES/SKIN Verified 03/19/19 22:10 REDNESS acetaminophen AdvReac Intermediate Unknown Verified 03/19/19 22:10 valproic acid AdvReac Intermediate PANCREATITS Verified 03/19/19 22:10 Consultations 03/20/19 01:11 ED Decision to Admit Stat 03/20/19 03:16 Consult Case Management - Discharge Planning Routine 03/20/19 08:00 Consult Cardiology Routine Consult Urology Routine 03/21/19 08:00 Consult General Surgery Routine 03/24/19 07:33 Consult Gastroenterology Routine Ordered Studies 03/20/19 02:14 CT abd pelvis wo con Urgent 04/03/19 11:05 CT cervical spine wo con Stat CT head/brain wo con Stat Hospital Course (1) Acute on chronic diastolic congestive heart failure, NYHA class 3: per Dr. Vasquez's notes: Acute on Chronic Diastolic CHF NYHA Class 3 Volume overload felt to be secondary to right heart failure, obesity hypoventilation syndrome, noncompliance. Med Aide consulted required IV Lasix Weight dropped to 201 kg placed on 1.8L fluid restriction changed Lasix drip to torsemide 20 mg twice daily Clinically much better with decreasing bilateral leg swelling Kidney function shows improvement with oral torsemide monitor volume status closely Ileus Repeat KUB showed no change in mildly dilated gas-filled loops of small bowel within the left upper quadrant. Surgery and GI consulted no surgical intervention Continue laxative Had Normal BM Resolved Ileus (2) Hematuria: Possible secondary to trauma and complicated by supratherapeutic INR Has indwelling Fontaine catheter due to prostatic hypertrophy Continue flomax and finasteride Hemoglobin has been stable No more hematuria He will have an outpatient appointment with urologist (3) Indwelling Fontaine catheter present: UTI Urine cx grew enterococcus faecalis IV Zosyn changed to Augmentin completed Augmentin course changed fontaine cathas per urology recommendation Need to have outpatient urology appointment on discharge (4) Chronic back pain: Has been on chronic pain medications with MS contin and oxycodone Current regimen of narcotics and pain medications seems to be controlling his pain continue his usual pain medications (5) Atypical chest pain: Complains to have chest pain Has had chest pain before without any evidence of ACS Serial cardiac enzymes have been negative EKG showed no ST changes Stable (6) Elevated lactic acid level: His lactic acid was mildly elevated on admission Possible related to infection UA positive for enterococcus faecalis Blood cx no growth Zosyn changed to Augmentin Resolved (7) Pulmonary embolism: History of pulmonary embolism on Coumadin Recurrent admission with supratherapeutic INR INR was more than 10 on admission and received Vit K INR is subtherapeutic, starting on heparin drip until INR therapeutic coumadin held for INR > 3 INR today 2.7 reduce coumadin to 5mg po daily check INR daily and adjust coumadin accordingly (8) Morbid obesity: Limited physical activity due to obesity Continue PT and OT evaluation and follow the recommendation (9) COPD (chronic obstructive pulmonary disease): respiratory status stable Does not have any COPD exacerbation (10) Depression with anxiety: Seems to be stable Continue current medications (11) Fall: patient reports passing out while brushing teeth- unwitnessed no prodome, no confusion after was able to get up and return to chair CT head: no hemorrhage CT cervical spine: no acute fractures Rib Xray: no fractures EKG: unremarkable Orthostatic Vitals: negative advised not to get up too quickly monitor Orthostatic VS and ambulate with assistance while at [facility] monitor forehead contusion Discharge Plan Discharge Items Patient Disposition: Transfer Inpatient Rehab Fac Reason For Visit: HEMATURIA, WEIGHT GAIN Discharge Diagnosis: Acute on chronic diastolic congestive heart failure, NYHA class III-improved with intravenous Lasix drip and now on oral torsemide, hematuria-stopped, has indwelling Fontaine catheter, chronic back pain on narcotics pain medications, history of pulmonary embolism on Coumadin, morbid obesity Condition: Fair Discharge Goals: Decrease discomfort, Improve function and Increase independence Activity: Resume your previous activity Exercise Comment: Assistance with all ambulation when at [facility] Non-emergency contact: Primary Care Provider Call non-emergency contact if: you have any medication questions Follow-up/Referrals: Owen Hogan MD [Primary Care Provider] - (Please make an appointment with your primary care physician within 7 days. Have regular follow-up with medical assistant secretary and urologist.) Diet: Carb Consistent or DM2 and Heart Healthy Fluids: 1800ml (7 cups) Addtl Provider Instructions: Please continue PT and OT. Take precautions to avoid fall No new medications or change in medications were done at discharge. Orthostatic Vital Signs should be checked three times per day Please check daily and dose Coumadin accordingly. monitor Orthostatic VS and ambulate with assistance while at [facility] monitor forehead contusion He will need to have regular follow-up with PCP, his pain therapist, medical assistant secretary and urologist. Please refer to accompanying hospital discharge summary for further details. Prescriptions: New warfarin [Coumadin] 7.5 mg Tablet 5 mg PO DAILY@1600 30 Days Qty: 30 RF: 0 Continued gabapentin 300 mg Capsule 300 mg PO TID RF: 0 ondansetron 4 mg Tablet,Disintegrating 4 mg PO Q4H PRN (Reason: Nausea And Vomiting) RF: 0 polyethylene glycol 3350 [Miralax] 17 gram powder in packet 17 g PO Q24H PRN (Reason: Constipation) RF: 0 nitroglycerin [Nitrostat] 0.4 mg tablet, sublingual 0.4 mg Sublingual DIRECTED PRN (Reason: CHEST PAIN) RF: 0 docusate sodium 100 mg capsule 100 mg PO BID RF: 0 metoprolol succinate 25 mg tablet extended release 24 hr 25 mg PO BID RF: 0 Fleet Enema 19-7 gram/118 mL Enema 133 ml SC DIRECTED PRN (Reason: Constipation) RF: 0 nystatin 100,000 unit/gram Powder 1 applic TOPICAL BID PRN (Reason: Skin Irritation) RF: 0 ipratropium-albuterol 0.5 mg-3 mg(2.5 mg base)/3 mL Solution For Nebulization 3 ml INHALATION Q4H PRN (Reason: Shortness Of Breath Or Wheezing) RF: 0 magnesium oxide 400 mg (241.3 mg magnesium) Tablet 400 mg PO QAM Qty: 0 RF: 0 spironolactone 50 mg tablet 50 mg PO BID RF: 0 tramadol 50 mg tablet 50 mg PO Q4H PRN (Reason: Pain) RF: 0 oxycodone 15 mg tablet 15 mg PO Q4H PRN (Reason: Breakthrough Pain) RF: 0 morphine [MS Contin] 15 mg tablet extended release 15 mg PO Q12H RF: 0 lorazepam 1 mg tablet 1 mg PO TID PRN (Reason: Anxiety) RF: 0 potassium chloride 10 mEq tablet,ER particles/crystals 10 meq PO BID RF: 0 omeprazole 20 mg capsule,delayed release(DR/EC) 20 mg PO QAM RF: 0 cyclobenzaprine 10 mg Tablet 10 mg PO BID RF: 0 torsemide 10 mg tablet 20 mg PO BID RF: 0 hydroxyzine HCl 25 mg tablet 25 mg PO QID PRN (Reason: Anxiety) RF: 0 fluticasone propionate 50 mcg/actuation spray,suspension 2 spray Intranasal QAM RF: 0 aspirin [Ecotrin Low Strength] 81 mg tablet,delayed release (DR/EC) 81 mg PO QAM RF: 0 duloxetine 60 mg capsule,delayed release(DR/EC) 60 mg PO QAM RF: 0 isosorbide dinitrate 10 mg tablet 10 mg PO BID RF: 0 Spiriva with HandiHaler 18 mcg capsule, w/inhalation device 1 puff inhalation DAILY RF: 0 finasteride 5 mg tablet 5 mg PO QAM RF: 0 tamsulosin [Flomax] 0.4 mg Capsule 0.4 mg PO DAILY RF: 0 albuterol sulfate [Ventolin HFA] 90 mcg/actuation HFA aerosol inhaler 2 puff inhalation Q4H PRN (Reason: Wheezing) RF: 0 Discontinued warfarin [Coumadin] 5 mg tablet 7.5 mg PO QPM RF: 0 Stand-Alone Forms: [facility] Discharge Orders: Discharge Order (Routine); Ordered 04/01/19 Ordered By: Augustus Vasquez Skilled Items Patient informed of condition?: Yes DNR: No Discharge Level of Care: Skilled Communicable Disease: No Discharge Prognosis: Stable Admission Data Admit Date/Time: 03/20/19 02:05 Attending Provider: Augustus Vasquez Admit Provider: Everardo Ibarra Primary Care Provider: Owen Hogan Other Providers: Xu Silvestre ; Augustus Vasquez ; Home[facility]ursing Agency ; Everardo Ibarra ; Yvon Del Valle ; Dick Cardoza ; Miguel Angel Lee ; Jacob Penn ; Manuel English ; Owen Saavedra ; Berna Richardson ; Josefina Chavez ; Frank Barth ; Owen Barrera ; Eduardo Chapman ; Sandra Mcdonald ; Ramonita Conway Service: Telemetry Medical Other Interventions: Discharge Summary Assessment (RN) Last Done: 04/01/19 12:26
[2019-04-03] MEDS: PROMETHAZINE HCL 25 MG TAB PO PRN (20:48)
[2019-04-04] MEDS: OXYCODONE HCL IR 5 MG TAB (IMMEDIATE RELEASE) PO PRN ×3 (01:59→10:14)
[2019-04-04] MEDS: ISOSORBIDE DINITRATE 10 MG TAB PO SCH ×2 (05:51→11:43)
[2019-04-04] MEDS: DULOXETINE HCL 60 MG CAP PO SCH (08:22)
[2019-04-04] MEDS: METOPROLOL SUCC 25MG EXT REL TAB PO SCH (08:22)
[2019-04-04] MEDS: TAMSULOSIN HCL 0.4 MG CAP PO SCH (08:22)
[2019-04-04] MEDS: GABAPENTIN 300 MG CAP PO SCH (08:22)
[2019-04-04] MEDS: CYCLOBENZAPRINE HCL 10 MG TAB PO SCH (08:22)
[2019-04-04] MEDS: POTASSIUM CHLORIDE 20 MEQ TABCR PO SCH (08:23)
[2019-04-04] MEDS: MAGNESIUM OXIDE 400 MG TAB PO SCH (08:23)
[2019-04-04] MEDS: INSULIN ASPART 100 UNITS/ML 3 ML PEN SC SCH (08:24)
[2019-04-04] MEDS: FINASTERIDE 5 MG TAB PO SCH (08:24)
[2019-04-04] MEDS: SPIRONOLACTONE 25 MG TAB PO SCH (08:24)
[2019-04-04] MEDS: POLYETHYLENE (MIRALAX) 17 GM PACK PO SCH (08:25)
[2019-04-04] MEDS: TORSEMIDE 10 MG TAB PO SCH (08:26)
[2019-04-04] MEDS: NICOTINE 21 MG/24 HR TDSY TD SCH (08:26)
[2019-04-04 08:33] LABS: Basophils # (auto) 0.05 K/uL (0-0.2); Basophils % (auto) 0.4 %; Eosinophils # (auto) 0.36 K/uL (0-0.5); Eosinophils % (auto) 2.6 %; Hemoglobin 11.3 g/dL (14.0-18.0); Immature Granulocytes % (auto) 1.4 %; Lymphocytes # (auto) 2.71 K/uL (1.2-3.4); Lymphocytes % (auto) 19.4 %; Mean Corpuscular Hgb Conc 30.5 g/dL (32-36); Mean Corpuscular Volume 76.9 fL (80-100); Mean Platelet Volume 9.8 fL (7.4-10.4); Monocytes # (auto) 1.16 K/uL (0.11-0.59); Monocytes % (auto) 8.3 %; Neutrophils # (auto) 9.46 K/uL (1.4-6.5); Neutrophils % (auto) 67.9 %; Platelet Count 295 K/uL (130-400); RDW Coefficient of Variation 17.4 % (11.5-14.5); RDW Standard Deviation 49.6 fL (36.4-46.3); Red Blood Count 4.81 M/uL (4.7-6.1); White Blood Count 13.94 K/uL (4.8-10.8)
[2019-04-04] MEDS: DOCUSATE SODIUM 100 MG CAP PO SCH (08:34)
[2019-04-04 09:15] LABS: BUN Creatinine Ratio 21.3 (10-20); Creatinine Clr Calc Pharmacy 119.2 ml/min; Est GFR (African American) 70.2; Est GFR (Non-African American) 60.6; Potassium 4.3 mmol/L (3.5-5.1)
[2019-04-04] MEDS: PANTOprazole 40 MG TAB PO SCH (09:58)
[2019-04-04] MEDS: TIOTROPIUM BROMIDE 5 PUFF/90 MCG INH INH SCH (09:58)
[2019-04-04] MEDS: MoRPHine SULFATE CR 15 MG TABCR PO SCH (09:58)
[2019-04-04 10:30] LABS: INR 2.2 (0.9-1.1); Prothrombin Time 21.5 Seconds (9.0-12.0)
[2019-04-04] MEDS: FLUTICASONE PROPIONATE NA SPR 16 GM BTL SCH (10:33)
[2019-04-04] MEDS: LORazepam 1 MG TAB PO PRN (10:45)
--- NOTE | 2019-04-04 19:39 | Hospitalist Progress Note ---
Date of Service Complaint service Date of service April 03, 2019 April 04, 2019 Results & Data Vital Signs (Past 12 Hours) Vital Signs Temp Pulse Pulse Resp BP BP Pulse Ox 04/04/19 12:16 36.8 C 87 20 120/69 95 04/04/19 10:27 36.7 C 82 74 22 121/68 113/65 97
--- NOTE | 2019-04-04 19:41 | Hospitalist Progress Note ---
Date of Service April 04, 2019 Assessment & Plan (1) Acute on chronic diastolic congestive heart failure, NYHA class 3: per Dr. Vasquez's notes: Acute on Chronic Diastolic CHF NYHA Class 3 Volume overload felt to be secondary to right heart failure, obesity hypoventilation syndrome, noncompliance. Director Of Automation consulted required IV Lasix Weight dropped to 201 kg placed on 1.8L fluid restriction changed Lasix drip to torsemide 20 mg twice daily Clinically much better with decreasing bilateral leg swelling Kidney function shows improvement with oral torsemide monitor volume status closely Ileus Repeat KUB showed no change in mildly dilated gas-filled loops of small bowel within the left upper quadrant. Surgery and GI consulted no surgical intervention Continue laxative Had Normal BM Resolved Ileus (2) Hematuria: Possible secondary to trauma and complicated by supratherapeutic INR Has indwelling Fontaine catheter due to prostatic hypertrophy Continue flomax and finasteride Hemoglobin has been stable No more hematuria He will have an outpatient appointment with urologist (3) Indwelling Fontaine catheter present: UTI Urine cx grew enterococcus faecalis IV Zosyn changed to Augmentin completed Augmentin course changed fontaine cathas per urology recommendation Need to have outpatient urology appointment on discharge (4) Chronic back pain: Has been on chronic pain medications with MS contin and oxycodone Current regimen of narcotics and pain medications seems to be controlling his pain continue his usual pain medications (5) Atypical chest pain: Complains to have chest pain Has had chest pain before without any evidence of ACS Serial cardiac enzymes have been negative EKG showed no ST changes Stable (6) Elevated lactic acid level: His lactic acid was mildly elevated on admission Possible related to infection UA positive for enterococcus faecalis Blood cx no growth Zosyn changed to Augmentin Resolved (7) Pulmonary embolism: History of pulmonary embolism on Coumadin Recurrent admission with supratherapeutic INR INR was more than 10 on admission and received Vit K INR is subtherapeutic, starting on heparin drip until INR therapeutic coumadin held for INR > 3 INR today 2.7 reduce coumadin to 5mg po daily check INR daily and adjust coumadin accordingly (8) Morbid obesity: Limited physical activity due to obesity Continue PT and OT evaluation and follow the recommendation (9) COPD (chronic obstructive pulmonary disease): respiratory status stable Does not have any COPD exacerbation (10) Depression with anxiety: Seems to be stable Continue current medications (11) Fall: patient reports passing out while brushing teeth- unwitnessed no prodome, no confusion after was able to get up and return to chair CT head: no hemorrhage CT cervical spine: no acute fractures Rib Xray: no fractures EKG: unremarkable Orthostatic Vitals: negative advised not to get up too quickly monitor Orthostatic VS and ambulate with assistance while at [facility] monitor forehead contusion CHEST PAIN Acute Coronary Syndrome ruled out reported on 04/03/19 around 5 pm sharp, associated with left arm numbness EKG no signs of ischemia Troponins x 3 negative resolved Subjective Follow-up for CHF Seen resting in bed, comfortable, not in distress No complaints with clinical staff anesthesiologist in the morning No chest pain, arm numbness, dizziness, palpitations, dizziness No other symptoms Patient informed he is being discharged, he is agreeable Review of Systems Review of Systems: All systems reviewed & are unremarkable except as noted in HPI & below Physical Exam Physical Exam: General- oriented x 3, not in distress, speaks in sentences with no effort or accessory muscle use Eyes- anicteric Neck- no JVD Lungs- clear breath sounds bilaterally Heart- normal rate, regular rhythm; no murmurs Abdomen- normal bowel sounds, nondistended, soft, nontender Extremities- no pretibial edema, no calf tenderness Neuro- alert, oriented x 3; no gross focal neurologic deficits Skin- warm & dry Results & Data Vital Signs (Past 12 Hours) Vital Signs Temp Pulse Pulse Resp BP BP Pulse Ox 04/04/19 12:16 36.8 C 87 20 120/69 95 04/04/19 10:27 36.7 C 82 74 22 121/68 113/65 97 Laboratory Results Laboratory Results - last 24 hr 04/04/19 04/04/19 04/04/19 01:50 07:55 08:06 WBC 13.94 H RBC 4.81 Hgb 11.3 L Hct 37.0 L MCV 76.9 L MCH 23.5 L MCHC 30.5 L RDW Std Deviation 49.6 H RDW Coeff of Megan 17.4 H Plt Count 295 MPV 9.8 Immature Gran % (Auto) 1.4 Neut % (Auto) 67.9 Lymph % (Auto) 19.4 [place] % (Auto) 8.3 Eos % (Auto) 2.6 Baso % (Auto) 0.4 Immature Gran # (Auto) 0.20 H Neut # (Auto) 9.46 H Lymph # (Auto) 2.71 [place] # (Auto) 1.16 H Eos # (Auto) 0.36 Baso # (Auto) 0.05 PT INR Sodium Potassium Chloride Carbon Dioxide Anion Gap BUN Creatinine Est Cr Clr Drug Dosing Est GFR ( Amer) Est GFR (Non-Af Amer) BUN/Creatinine Ratio Glucose POC Glucose 134 H Calcium Troponin I < 0.015 04/04/19 04/04/19 04/04/19 08:06 10:07 11:17 WBC RBC Hgb Hct MCV MCH MCHC RDW Std Deviation RDW Coeff of Megan Plt Count MPV Immature Gran % (Auto) Neut % (Auto) Lymph % (Auto) [place] % (Auto) Eos % (Auto) Baso % (Auto) Immature Gran # (Auto) Neut # (Auto) Lymph # (Auto) [place] # (Auto) Eos # (Auto) Baso # (Auto) PT 21.5 H INR 2.2 H Sodium 138 Potassium 4.3 Chloride 102 Carbon Dioxide 30 Anion Gap 6.0 BUN 29 H Creatinine 1.37 Est Cr Clr Drug Dosing 119.2 Est GFR ( Amer) 70.2 Est GFR (Non-Af Amer) 60.6 BUN/Creatinine Ratio 21.3 H Glucose 124 H POC Glucose 139 H Calcium 10.0 Troponin I (1) Hematuria Hematuria type: unspecified type Qualified Code(s): R31.9 - Hematuria, unspecified (2) Pulmonary embolism Pulmonary embolism type: unspecified Chronicity: chronic Acute cor pulmonale presence: without acute cor pulmonale Qualified Code(s): I27.82 - Chronic pulmonary embolism (3) COPD (chronic obstructive pulmonary disease) COPD type: emphysema Emphysema type: unspecified Qualified Code(s): J43.9 - Emphysema, unspecified
--- NOTE | 2019-04-05 08:25 | Coding Query ---
CODING QUERY To promote full compliance with coding requirements relating to patient care, provider participation is requested in all cases of home service director uncertainty. Please assist us with the question(s) below: In the record, it states that the patient has an UTI. Please clarify below the cause of the UTI if applicable. Thank you. ( ) The chronic indwelling fontaine was the cause of the UTI. ( ) UTI, unspecified cause. ( ) Other (Specify): Please forward query to Dr. Oneil Vasquez or Dr. Slick Silvestre who took care of the patient longer and are more familiar with the case. I was the attending of the patient for two days- the day before and day of discharge. Thank you very much. Romulo Clark MD Principal Diagnosis: "that condition established after study, to be chiefly responsible for occasioning the admission of the patient to the hospital for care." Co-Existing Principal Diagnosis: "when two or more diagnoses equally meet the criteria for principal diagnosis as determined by the circumstances of admission, diagnostic work up, and/or therapy provided, and the Alphabetic Index, Tabular List, or another coding guideline does not provide sequencing direction, any one of the diagnoses may be sequenced first." "When the physician has documented what appears to be a current diagnosis in the body of the record, but has not included the diagnosis in the final diagnostic statement, the physician should be asked whether the diagnosis should be added." (Source [facility]oding [facility] 2 QTR90. p3-4) [place]
--- NOTE | 2019-04-05 08:36 | Coding Query ---
To promote full compliance with coding requirements relating to patient care, provider participation is requested in all cases of proof operator uncertainty. Please assist us with the question(s) below: Coding Question(s): 1. The diagnosis(es) below was documented in the ER and mentioned in PN 03/20 and 03/21, then subsequently fell off all further documentation. Please indicate if it is still a possible diagnosis or ruled out. Physician's Response(s): SEPSIS - (SEPSIS IS DOCUMENTED ON ER, THEN PN'S 03/20 & 03/21 SAY "DOUBT ANY SEPSIS FOR NOW" AND FURTHER PN'S AND DS DOCUMENT, "HIS LACTIC ACID WAS ELEVATED ON ADMISSION POSSIBLE RELATED TO INFECTION". IT IS UNCLEAR IF SEPSIS WAS PRESENT AND THE LIKELY SOURCE, IF SO. ( ) Diagnosed and POA ( ) Diagnosed and not POA ( ) Ruled out ( ) Other (please specify) 2. If Sepsis is diagnosed in the query above, Please specify the likely source. ( ) UTI ( ) Other: Please Specify ( ) Unknown *Please forward to Dr. Oneil Vasquez or Dr. Slick Silvestre, attendings who took care of the patient longer. I only had the patient for 2 days- day before and day of discharge. Thank you very much. Romulo ALONZO
--- NOTE | 2019-04-20 08:36 | Coding Query ---
CODING QUERY To promote full compliance with coding requirements relating to patient care, provider participation is requested in all cases of program production specialist uncertainty. Please assist us with the question(s) below: Coding Question(s): 1. The diagnosis(es) below was documented in the ER and mentioned in PN 03/20 and 03/21, then subsequently fell off all further documentation. Please indicate if it is still a possible diagnosis or ruled out. Physician's Response(s): SEPSIS - (SEPSIS IS DOCUMENTED ON ER, THEN PN'S 03/20 & 03/21 SAY "DOUBT ANY SEPSIS FOR NOW" AND FURTHER PN'S AND DS DOCUMENT, "HIS LACTIC ACID WAS ELEVATED ON ADMISSION POSSIBLE RELATED TO INFECTION". IT IS UNCLEAR IF SEPSIS WAS PRESENT AND THE LIKELY SOURCE, IF SO. ( + ) Diagnosed and POA ( ) Diagnosed and not POA ( ) Ruled out ( ) Other (please specify) 2. If Sepsis is diagnosed in the query above, Please specify the likely source. ( + ) UTI ( ) Other: Please Specify ( ) Unknown Physician's Response(s): Thank you Cailin Lechuga Principal Diagnosis: "that condition established after study, to be chiefly responsible for occasioning the admission of the patient to the hospital for care." Co-Existing Principal Diagnosis: "when two or more diagnoses equally meet the criteria for principal diagnosis as determined by the circumstances of admission, diagnostic work up, and/or therapy provided, and the Alphabetic Index, Tabular List, or another coding guideline does not provide sequencing direction, any one of the diagnoses may be sequenced first." "When the physician has documented what appears to be a current diagnosis in the body of the record, but has not included the diagnosis in the final diagnostic statement, the physician should be asked whether the diagnosis should be added." (Source [facility]oding [facility] 2 QTR90. p3-4) [place]
--- NOTE | 2019-04-20 08:38 | Coding Query ---
CODING QUERY To promote full compliance with coding requirements relating to patient care, provider participation is requested in all cases of printing estimator uncertainty. Please assist us with the question(s) below: In the record, it states that the patient has an UTI. Please clarify below the cause of the UTI if applicable. Thank you. (+ ) The chronic indwelling fontaine was the cause of the UTI. ( ) UTI, unspecified cause. ( ) Other (Specify): Principal Diagnosis: "that condition established after study, to be chiefly responsible for occasioning the admission of the patient to the hospital for care." Co-Existing Principal Diagnosis: "when two or more diagnoses equally meet the criteria for principal diagnosis as determined by the circumstances of admission, diagnostic work up, and/or therapy provided, and the Alphabetic Index, Tabular List, or another coding guideline does not provide sequencing direction, any one of the diagnoses may be sequenced first." "When the physician has documented what appears to be a current diagnosis in the body of the record, but has not included the diagnosis in the final diagnostic statement, the physician should be asked whether the diagnosis should be added." ([facility] 2 QTR90. p3-4) [place]
== END 2019-04-04 12:00 | DRG 291 ==
LOC: ED 21:45 → SUATTDRO 03-20 02:05 → 2E 03-20 02:05 → 2W 03-29 14:58

== ENCOUNTER 2019-04-25 18:27 | Inpatient (IN) ==
[2019-04-25] MEDS ORDERED: SODIUM CHLORIDE 0.9% 1000ML 2,000 ML IV ONE (19:07)
[2019-04-25] MEDS ORDERED: cefTRIAXone SODIUM 1,000 MG/50 ML BAG IV STA (19:13)
--- NOTE | 2019-04-25 19:25 | XRay Report ---
XR chest 1V portable CLINICAL HISTORY: Sepsis COMPARISON STUDY: Chest radiograph and left rib series April 03, 2019. FINDINGS: Lung volumes are normal. Lungs are clear. There is no pneumothorax or pleural effusion. Car diac size is normal. Mediastinal contours are normal. There is no evidence for pulmonary edema. Hazy opacity along the left heart border is due to epicardial fat pad or atelectasis. IMPRESSION: No acute cardiopulmonary findings. Electronically signed by: Evelio Corbin M.D. 04/25/2019 7:24 PM
[2019-04-25 19:57] LABS: Hematocrit (blood only) 32.6 % (42-52); Hemoglobin 10.6 g/dL (14.0-18.0); Mean Corpuscular Hgb Conc 32.5 g/dL (32-36); Mean Corpuscular Volume 74.4 fL (80-100); Mean Platelet Volume 10.3 fL (7.4-10.4); Nucleated RBC # (auto) 0.02 K/uL (0-0); Nucleated RBC % (auto) 0.1 %; Platelet Count 172 K/uL (130-400); RDW Coefficient of Variation 18.7 % (11.5-14.5); RDW Standard Deviation 50.5 fL (36.4-46.3); Red Blood Count 4.38 M/uL (4.7-6.1)
[2019-04-25] MEDS ORDERED: IMIPENEM/CILASTATIN SODIUM 500 MG in DEXTROSE 5% 100 ML IV STA (20:04)
[2019-04-25 20:07] LABS: Appearance Urine Turbid (Clear); Bacteria Urine Automated 3+ (Negative); Bilirubin Urine Negative (Negative); Blood Urine 3+ (Negative); Color Urine Orange; Epithelial Cell Urine Auto >30 /lpf (0-5); Glucose Urine UA Negative (Negative); Ketones Urine Negative (Negative); Leukocyte Esterase Urine 3+ (Negative); Nitrite Urine Negative (Negative); Protein Urine 2+ (Negative); Specific Gravity Urine 1.019 (1.000-1.030); Urobilinogen Urine Negative (Negative); WBC Urine Automated >30 /hpf (0-5)
[2019-04-25 20:08] LABS: INR 1.1 (0.9-1.1); Partial Thromboplastin Time 27.1 Seconds (21.0-31.0); Prothrombin Time 11.4 Seconds (9.0-12.0)
[2019-04-25 20:17] LABS: Albumin Level 2.6 gm/dl (3.4-5.0); BUN Creatinine Ratio 13.4 (10-20); Calcium 9.4 mg/dl (8.5-10.1); Creatinine Clr Calc Pharmacy 70.6 ml/min; Est GFR (African American) 37.7; Est GFR (Non-African American) 32.5; Potassium 3.9 mmol/L (3.5-5.1)
[2019-04-25 20:17] LABS: RBC Urine Automated >30 /hpf (0-4)
[2019-04-25 20:20] LABS: Albumin Globulin Ratio 0.6 (0.9-2); Globulin 4.7 gm/dl (2.5-4.0); Total Protein 7.3 gm/dl (6.4-8.2)
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
[2019-04-25] MEDS ORDERED: POTASSIUM CHLORIDE 20 MEQ TABCR PO STA (20:47)
--- NOTE | 2019-04-25 20:48 | XRay Report ---
XR abdomen min 2V CLINICAL HISTORY: Vomiting. COMPARISON STUDY: Abdominal series March 22, 2019. CT of the abdomen and pelvis March 20, 2019. FINDINGS: There is no free air. A catheter projects over the pelvis. Moderate colonic distention is noted without convincing evidence for a bowel obstruction. There are no dilated loops of small bowel. A moderate amount stool within the colon is noted. IMPRESSION: 1. No free air. 2. Moderate colonic distention, a nonspecific finding although not highly suggestive of a bowel obstr uction. 3. Moderate amount of stool within the colon. Electronically signed by: Evelio Corbin M.D. 04/25/2019 8:47 PM
[2019-04-25] MEDS: ACETAMINOPHEN 65 ML IV STA ×2 (20:51→21:37)
[2019-04-25 20:54] LABS: Basophils # (auto) 0.01 K/uL (0-0.2); Immature Granulocytes # (auto) 0.24 K/uL (0.00-0.02); Lymphocytes # (auto) 0.88 K/uL (1.2-3.4); Lymphocytes % (auto) 3.7 %; Monocytes # (auto) 1.25 K/uL (0.11-0.59); Monocytes % (auto) 5.2 %; Neutrophils # (auto) 21.62 K/uL (1.4-6.5); Neutrophils % (auto) 90.1 %
[2019-04-25] MEDS ORDERED: POLYETHYLENE (MIRALAX) 17 GM PACK PO STA (21:16)
[2019-04-25 21:22] LABS: Magnesium 1.7 mg/dl (1.8-2.4); Troponin I < 0.015 ng/ml (0-0.045)
[2019-04-25] MEDS: OXYCODONE HCL IR 5 MG TAB (IMMEDIATE RELEASE) PO PRN (21:27)
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
[2019-04-25] MEDS ORDERED: CARBOHYDRATES FOR HYPOGLYCEMIA PO PRN (22:28)
[2019-04-25] MEDS ORDERED: ACETAMINOPHEN 325 MG TAB PO PRN (22:28)
[2019-04-25] MEDS ORDERED: GLUCOSE 10 TABS/TUBE PO PRN (22:28)
[2019-04-25] MEDS ORDERED: XOPENEX/ATROVENT 1.25mg/0.5MG NEB COMBO NEB PRN (22:28)
[2019-04-25] MEDS ORDERED: NITROGLYCERIN SL 0.4 MG/TAB TAB SL PRN (22:28)
[2019-04-25] MEDS ORDERED: LORazepam 1 MG TAB PO PRN (22:28)
[2019-04-25] MEDS ORDERED: GLUCOSE 40% GEL 15 GM TUBE PO PRN (22:28)
[2019-04-25] MEDS ORDERED: DEXTROSE 50% 50 ML SYRINGE IV PRN (22:28)
[2019-04-25] MEDS ORDERED: LEVALBUTEROL 1.25MG/0.5ML NEB INH PRN (22:28)
[2019-04-25] MEDS ORDERED: IPRATROPIUM BROMIDE NEB SOLN 0.02% 2.5 ML VIAL INH PRN (22:28)
[2019-04-25] MEDS ORDERED: GLUCAGON FOR INJ 1 MG VIAL SQ PRN (22:28)
--- NOTE | 2019-04-25 22:38 | CT Scan Report ---
CT OF THE ABDOMEN AND PELVIS WITHOUT CONTRAST CLINICAL HISTORY: Abdominal pain. Hematuria. COMPARISON STUDY: CT of the abdomen and pelvis March 20, 2019. Abdominal series April 25, 2019. TECHNIQUE: Axial images of the abdomen and pelvis were obtained without IV contrast. Images were revi ewed in the axial, sagittal, and coronal planes. Automated exposure control was utilized for the nena dy. A dose lowering technique was utilized adhering to the principles of ALARA. FINDINGS: Linear bibasilar opacities represent atelectasis. Note is made of a 4 mm right renal calcul us. There are no ureteral calculi. No hydronephrosis or hydroureter. There is mild left perinephric i nfiltration which extends into the pelvis. There is suspected mild enlargement of the left kidney. Ev aluation is suboptimal on this unenhanced exam. Fatty infiltration of the liver is noted. The spleen, adrenal glands and pancreas are unremarkable. There is no evidence for a bowel obstruction. No pneum atosis, free air or portal venous gas is present. The appendix is surgically absent. A Lloyd balloon and gas are present within the bladder which is collapsed. Old L1 compression deformity is noted. Lindsey pected avascular necrosis of the left femoral head is noted. IMPRESSION: 1. Mild left perinephric infiltration. No hydronephrosis or ureteral calculi. The findings raise the possibility of pyelonephritis. A recently passed calculus could appear similar although is considered less likely. 2. 4 mm right renal calculus. 3. Fatty infiltration of the liver. 4. 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 Electronically signed by: Evelio Corbin M.D. 04/25/2019 10:36 PM
--- NOTE | 2019-04-25 22:40 | CT Scan Report ---
CT lumbar spine wo con CLINICAL HISTORY: back pain, L leg weakness COMPARISON STUDY: Lumbar spine CT March 04, 2019. TECHNIQUE: Axial images of the lumbar spine were obtained without IV contrast. Sagittal and coronal r econstructions were viewed. Automated exposure control was utilized for the study. A dose lowering t echnique was utilized adhering to the principles of ALARA. FINDINGS: Mild loss of height of the superior plate of L1 is chronic. No acute lumbar spine fracture is noted. Central canal and neural foramen are suboptimally assessed given CT technique. Disc space n arrowing with osteophytosis and vacuum disc phenomenon at L4-L5 and L5-S1 are unchanged. Alignment of the lumbar spine is anatomic. The sacroiliac joints are intact. The appearance of the lumbar spine i s unchanged since CT of March 04, 2019. This exam is compromised by quantum mottle artifact. IMPRESSION: 1. No acute lumbar spine fracture or subluxation. 2. No change in an old mild L1 compression fracture. 3. No change in disc space narrowing, osteophytosis and vacuum disc phenomenon at L4-L5 and L5-S1. Mo derate multilevel facet arthrosis. Electronically signed by: Evelio Corbin M.D. 04/25/2019 10:39 PM
[2019-04-25] MEDS ORDERED: NSS + 20MEQ KCL 20 MEQ/1,000 ML BAG IV ONE (23:00)
[2019-04-25] MEDS ORDERED: METOPROLOL SUCC 25MG EXT REL TAB PO SCH (23:00)
[2019-04-25] MEDS ORDERED: IMIPENEM/CILASTATIN CONSULT ACTIVE PRN (23:08)
[2019-04-25] MEDS: MoRPHine SULFATE CR 15 MG TABCR PO SCH ×3 (23:30→23:57)
[2019-04-25] MEDS: INSULIN ASPART 100 UNITS/ML 3 ML PEN SC SCH (23:47)
[2019-04-25] MEDS: DOCUSATE SODIUM/SENNA 50/8.6MG TAB PO SCH (23:50)
[2019-04-25] MEDS: NICOTINE 21 MG/24 HR TDSY TD SCH (23:51)
[2019-04-26] MEDS ORDERED: Heparin IV Standard *NO* Bolus IV ONE (00:30)
[2019-04-26] MEDS ORDERED: WARFARIN SOD 7.5 MG TAB PO STA (00:33)
[2019-04-26] MEDS: HEPARIN SODIUM/DEXTROSE 25,000 UNITS/500 ML BAG IV SCH ×3 (00:51→19:50)
[2019-04-26] MEDS: IMIPENEM/CILASTATIN SODIUM 400 MG in DEXTROSE 5% 100 ML IV SCH ×4 (00:56→19:49)
[2019-04-26] MEDS: OXYCODONE HCL IR 5 MG TAB (IMMEDIATE RELEASE) PO PRN ×6 (01:50→22:00)
[2019-04-26] MEDS ORDERED: ACETAMINOPHEN 65 ML IV ONE (04:10)
[2019-04-26] MEDS: METOPROLOL SUCC 25MG EXT REL TAB PO SCH ×2 (05:12→20:09)
[2019-04-26 06:05] LABS: Estimated Average Glucose 166 mg/dl; Hemoglobin A1C 7.4 % (4.5-5.6)
[2019-04-26 07:34] LABS: Basophils # (auto) 0.01 K/uL (0-0.2); Basophils % (auto) 0.1 %; Eosinophils # (auto) 0.02 K/uL (0-0.5); Eosinophils % (auto) 0.1 %; Hemoglobin 9.8 g/dL (14.0-18.0); Immature Granulocytes % (auto) 0.5 %; Lymphocytes # (auto) 0.99 K/uL (1.2-3.4); Lymphocytes % (auto) 5.2 %; Mean Corpuscular Hgb Conc 32.7 g/dL (32-36); Mean Corpuscular Volume 71.6 fL (80-100); Mean Platelet Volume 10.2 fL (7.4-10.4); Monocytes # (auto) 1.53 K/uL (0.11-0.59); Monocytes % (auto) 8.1 %; Neutrophils # (auto) 16.31 K/uL (1.4-6.5); Nucleated RBC # (auto) 0.02 K/uL (0-0); Nucleated RBC % (auto) 0.1 %; Platelet Count 131 K/uL (130-400); RDW Coefficient of Variation 18.6 % (11.5-14.5); RDW Standard Deviation 48.3 fL (36.4-46.3); Red Blood Count 4.19 M/uL (4.7-6.1); White Blood Count 18.96 K/uL (4.8-10.8)
[2019-04-26 07:44] LABS: INR 1.1 (0.9-1.1); Partial Thromboplastin Ratio 1.4; Partial Thromboplastin Time 36.6 Seconds (21.0-31.0); Prothrombin Time 11.4 Seconds (9.0-12.0)
[2019-04-26 08:05] LABS: BUN Creatinine Ratio 15.6 (10-20); Calcium 8.8 mg/dl (8.5-10.1); Creatinine Clr Calc Pharmacy 77.2 ml/min; Est GFR (African American) 42.1; Est GFR (Non-African American) 36.3; Potassium 3.9 mmol/L (3.5-5.1)
[2019-04-26] MEDS: ISOSORBIDE DINITRATE 10 MG TAB PO SCH ×2 (08:39→12:27)
[2019-04-26] MEDS: INSULIN ASPART 100 UNITS/ML 3 ML PEN SC SCH ×4 (08:45→21:22)
[2019-04-26] MEDS: INSULIN GLARGINE SOLOSTAR 100 UNITS/ML 3 ML PEN SQ SCH (08:46)
[2019-04-26] MEDS ORDERED: HEPARIN IV BOLUS 10,000 UNITS in SYRINGE 0 ML IV STA (08:57)
[2019-04-26] MEDS ORDERED: CONSULT PHARMACY SCH (09:00)
[2019-04-26] MEDS ORDERED: POLYETHYLENE (MIRALAX) 17 GM PACK PO SCH (09:00)
[2019-04-26] MEDS: DOCUSATE SODIUM/SENNA 50/8.6MG TAB PO SCH ×2 (09:04→20:10)
[2019-04-26] MEDS: MoRPHine SULFATE CR 15 MG TABCR PO SCH ×2 (09:04→20:09)
[2019-04-26] MEDS: TAMSULOSIN HCL 0.4 MG CAP PO SCH (09:06)
[2019-04-26] MEDS: ASPIRIN 81 MG ECTAB PO SCH (09:06)
[2019-04-26] MEDS: FINASTERIDE 5 MG TAB PO SCH (09:07)
[2019-04-26] MEDS: FLUTICASONE PROPIONATE NA SPR 16 GM BTL SCH (09:07)
[2019-04-26] MEDS: NICOTINE 21 MG/24 HR TDSY TD SCH (09:07)
[2019-04-26] MEDS: GABAPENTIN 100 MG CAP PO SCH ×3 (09:07→20:10)
[2019-04-26] MEDS: PANTOprazole 40 MG TAB PO SCH (09:08)
[2019-04-26] MEDS: TIOTROPIUM BROMIDE 5 PUFF/90 MCG INH INH SCH (09:08)
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
[2019-04-26] MEDS ORDERED: PHENAZOPYRIDINE HCL 100 MG TAB PO PRN (10:38)
[2019-04-26] MEDS: ACETAMINOPHEN 65 ML IV PRN ×2 (10:41→17:17)
[2019-04-26] MEDS: POLYETHYLENE (MIRALAX) 17 GM PACK PO SCH (12:27)
[2019-04-26] MEDS: TRAMADOL HCL 50 MG TABLET PO PRN ×3 (12:32→20:49)
--- NOTE | 2019-04-26 15:31 | Hospitalist Progress Note ---
Date of Service April 26, 2019 Assessment & Plan (1) Sepsis: Secondary to UTI due to chronic Lloyd catheter Management as below Present on Admission?: Yes (2) UTI (urinary tract infection): This is a 48yo M with a PMH of chronic diastolic heart failure, history of PE on Coumadin, HTN, COPD, chronic pain with opioid dependence, mood disorder and recent ESBL UTI who presents with catheter malfunction beginning earlier today and was found to have sepsis in setting of urinary tract infection. -Meets sepsis criteria per CMS guidelines with fever of 38C, tachycardia at 130 and leukocytosis of 24K. Lactic within normal limits at 1.7 -Urinary symptoms and abnormal urinalysis in setting of chronic indwelling Lloyd, urinary retention and history of UTIs -Grew ESBL producing E. coli UTI a few months ago, treated with Invanz for 4-5 days -Started on Rocephin and imipenem in the ED. Also given 2 L NSS -Urine and blood cultures are positive for gram-negative bacilli, identification and sensitivity are pending -Clinically a little bit better today (3) MAHAMED (acute kidney injury): Likely secondary to dehydration and may be complicated by overuse of diuretics Will not provide any intravenous fluid and advised to drink more orally Hold diuretics including torsemide and Spironolactone We will monitor PRP-creatinine has been improving Hyponatremia Likely secondary to use of diuretics We will monitor sodium levels while in the hospital (4) Chronic diastolic CHF (congestive heart failure): No evidence of failure at this time Diuretics are on hold (5) HTN (hypertension): BP seems to be controlled (6) Pulmonary embolism: Has been on Coumadin Subtherapeutic at this time Continue heparin and Coumadin (7) Chronic pain disorder: Continue MS Contin and MSIR If additional pain medications are needed we will consult pain therapist (8) Opioid dependence: Will not provide any extra Dilaudid may need to have pain therapy evaluation To provide increasing pain medications (9) Depression with anxiety: (10) COPD (chronic obstructive pulmonary disease): No exacerbation Subjective 04/26 The patient was seen and examined in medical floor Recently he was in [facility] from the hospital and then went home about 4 or 5 days before coming to the ER He was admitted with another attack of UTI and acute on chronic renal failure He has been feeling a little bit better since admission Complains to have nonspecific pain Review of Systems Review of Systems: All systems reviewed and are unremarkable except as noted below Constitutional: + fatigue and + weakness; no fever and no chills Respiratory: no cough and no dyspnea Cardiovascular: no chest pain Gastrointestinal: no abdominal pain Genitourinary: + dysuria and + problem reported (Hypogastric pain) Physical Exam Physical Exam: Lying in bed comfortably Constitutional: well developed, well nourished, + obese and comfortable; no acute distress Eyes: PERRL, conjunctivae normal, anicteric sclerae ENMT: external ear and nose normal, oropharynx normal Neck: trachea midline, no thyromegaly neck nontender Respiratory: normal respiratory effort, lungs clear to auscultation normal percussion; does not use accessory muscles Cardiovascular: Rate/Rhythm: regular rate and regular rhythm Heart Sounds: normal S1 and normal S2; no gallop, no murmur and no cardiac rub Vessels: normal peripheral pulses; no JVD Gastrointestinal (Abdomen): Inspection/Auscultation: abdomen normal to inspection and normal bowel sounds Percussion/Palpation: + abdomen tender (Mild left flank); no hepatosplenomegaly and no abdominal mass Musculoskeletal: Spine: thoracic spine normal to inspection and lumbar spine normal to inspection; no cervical spinal tenderness Extremities: strength 5/5 throughout Skin: no rashes, warm and dry normal turgor; no lesions Neurologic: moves all extremities; no focal motor deficits Psychiatric: A+Ox3, euthymic affect Orientation: cooperative Genitourinary: Has Lloyd catheter in situ Lymphatic: no cervical or axillary lymphadenopathy no inguinal lymphadenopathy Results & Data Vital Signs (Past 12 Hours) Vital Signs Temp Pulse Pulse Resp BP Pulse Ox 04/26/19 14:45 37.9 C H 97 H 16 114/71 96 04/26/19 12:38 37.5 C 04/26/19 11:17 38.3 C H 104 H 18 105/71 96 04/26/19 10:26 38.1 C H 04/26/19 09:42 102 H 04/26/19 07:07 38.1 C H 100 H 16 108/69 96 04/26/19 04:00 39.3 C H 112 H 19 132/72 95 Laboratory Results Short CBC 04/25/19 04/26/19 Range/Units 19:46 07:18 WBC 24.00 H 18.96 H (4.8-10.8) K/uL Hgb 10.6 L 9.8 L (14.0-18.0) g/dL Hct 32.6 L 30.0 L (42-52) % Plt Count 172 131 (130-400) K/uL BMP 04/25/19 04/26/19 19:46 07:18 Sodium 129 L 129 L Potassium 3.9 3.9 Chloride 93 L 97 L Carbon Dioxide 28 24 BUN 31 H 33 H Creatinine 2.29 H 2.09 H Glucose 143 H 161 H Calcium 9.4 8.8 Cardiac Enzymes 04/25/19 Range/Units 19:46 Troponin I < 0.015 (0-0.045) ng/ml Liver Function 04/25/19 Range/Units 19:46 Total Bilirubin 1.0 (0.2-1) mg/dl AST 18 (15-37) U/L ALT 23 (12-78) U/L Alkaline Phosphatase 131 H (45-117) U/L Albumin 2.6 L (3.4-5.0) gm/dl Urine 04/25/19 Range/Units 19:50 Urine Color [place] Urine Appearance Turbid A (Clear) Urine pH 5.0 (4.5-7.5) Ur Specific [place] 1.019 (1.000-1.030) Urine Protein 2+ H (Negative) Urine Glucose (UA) Negative (Negative) Medications Administered Current Inpatient Medications Acetaminophen (Tylenol) 325 mg PO Q6H PRN PRN Reason: Pain or Fever Stop: 05/25/19 22:27 Aspirin (Ecotrin Ectab) 81 mg PO [facility] Stop: 05/26/19 08:59 Last Admin: 04/26/19 09:06 Dose: 81 mg Documented by: Dextrose (Dextrose 50%) 25 - 50 ml IV UD PRN; Protocol PRN Reason: Hypoglycemia Protocol Stop: 05/25/19 22:27 Finasteride (Proscar) 5 mg PO [facility] Stop: 05/26/19 08:59 Last Admin: 04/26/19 09:07 Dose: 5 mg Documented by: Fluticasone Propionate ([facility]ase) [facility] Stop: 05/26/19 08:59 Last Admin: 04/26/19 09:07 Dose: 2 sprays Documented by: Gabapentin (Neurontin) 200 mg PO TID [facility] Stop: 05/26/19 08:59 Last Admin: 04/26/19 13:59 Dose: 200 mg Documented by: Glucagon (Glucagen) 1 mg SQ UD PRN; Protocol PRN Reason: Hypoglycemia Protocol Stop: 05/25/19 22:27 Glucose (Glucose 40%) 15 - 30 gm PO UD PRN; Protocol PRN Reason: Hypoglycemia Protocol Stop: 05/25/19 22:27 Glucose (Dex4 Glucose) 4 - 8 tabs PO UD PRN; Protocol PRN Reason: Hypoglycemia Protocol Stop: 05/25/19 22:27 Potassium Chloride/Sodium Chloride (Normal Saline W/20 Meq Kcl) 20 meq in 1,000 mls @ 60 mls/hr IV .[id number] ONE Stop: 04/26/19 15:39 Last Admin: 04/25/19 23:50 Dose: 60 mls/hr Documented by: Promethazine HCl 12.5 mg/ (Sodium Chloride) 50.5 mls @ 202 mls/hr IV Q6H PRN PRN Reason: Nausea And Vomiting Stop: 05/25/19 22:27 Imipenem/Cilastatin Sodium 400 (mg/ Dextrose) 108 mls @ 108 mls/hr IV Q6H EMPERATRIZ; Protocol Stop: 05/06/19 01:59 Last Admin: 04/26/19 14:00 Dose: 108 mls/hr Documented by: Heparin Sodium/Dextrose (Heparin Sodium/Dextrose) 25,000 units in 500 mls @ 56 mls/hr IV .[id number] EMPERATRIZ; Protocol Stop: 05/26/19 00:59 Last Titration: 04/26/19 14:51 Dose: 2,800 units/hr, 56 mls/hr Documented by: Acetaminophen (Ofirmev) 65 mls @ 200 mls/hr IV Q6H PRN PRN Reason: fever Stop: 05/26/19 05:14 Last Infusion: 04/26/19 11:24 Dose: Infused Documented by: Insulin Aspart (Novolog Flexpen) 0 units SC ACHS [facility] Stop: 05/25/19 22:27 Last Admin: 04/26/19 12:28 Dose: 4 units Documented by: Insulin Glargine (Lantus Solostar Pen) 5 units SQ DAILY EMPERATRIZ Stop: 05/26/19 08:59 Last Admin: 04/26/19 08:46 Dose: 5 units Documented by: Ipratropium [place] (Atrovent 0.02% 0.5mg/2.5ml) 0.5 mg INH Q4R PRN PRN Reason: SHORTNESS OF BREATH OR WHEEZIN Stop: 05/25/19 22:27 Isosorbide Dinitrate (Isordil) 10 mg PO DAILY@0700,1200 [facility] Stop: 05/26/19 06:59 Last Admin: 04/26/19 12:27 Dose: 10 mg Documented by: Levalbuterol HCl (Xopenex 1.25mg/0.5ml Neb) 1.25 mg INH Q4R PRN PRN Reason: SHORTNESS OF BREATH OR WHEEZIN Stop: 05/25/19 22:27 Lorazepam (Ativan) 1 mg PO TID PRN PRN Reason: Anxiety Stop: 05/25/19 22:27 Metoprolol Succinate (Toprol Xl) 25 mg PO BID [facility] Stop: 05/26/19 04:14 Last Admin: 04/26/19 05:12 Dose: 25 mg Documented by: Miscellaneous (Carbohydrates For Hypoglycemia) 15 - 30 gm PO UD PRN PRN Reason: Hypoglycemia Treatment Stop: 05/25/19 22:27 Miscellaneous (Remove Nicoderm Patch) 1 ea N/A HS [facility] Stop: 05/26/19 08:58 Last Admin: 04/26/19 09:05 Dose: 1 ea Documented by: Miscellaneous Information (Consult) 1 ea N/A UD PRN PRN Reason: Consult Stop: 05/25/19 23:07 Morphine Sulfate (Ms Contin) 15 mg PO Q12 [facility] Stop: 05/10/19 20:59 Nicotine (Nicoderm Cq) 21 mg TD QAM [facility] Stop: 05/25/19 22:27 Last Admin: 04/26/19 09:07 Dose: 21 mg Documented by: Nitroglycerin (Nitrostat) 0.4 mg SL UD PRN PRN Reason: Chest Pain Stop: 05/25/19 22:27 Oxycodone HCl (Roxicodone Immediate Rel) 15 mg PO Q4H PRN PRN Reason: pain not relieved by tylenol Stop: 05/09/19 20:44 Last Admin: 04/26/19 13:59 Dose: 15 mg Documented by: Pantoprazole Sodium (Protonix) 40 mg PO QAM [facility] Stop: 05/26/19 08:59 Last Admin: 04/26/19 09:08 Dose: 40 mg Documented by: Phenazopyridine HCl (Pyridium) 100 mg PO TID PRN PRN Reason: Bladder pain Stop: 05/26/19 10:37 Last Admin: 04/26/19 12:26 Dose: 100 mg Documented by: Polyethylene Glycol (Miralax Powder Packet) 17 gm PO DAILY EMPERATRIZ Stop: 05/26/19 11:59 Last Admin: 04/26/19 12:27 Dose: 17 gm Documented by: Senna/Docusate Sodium (Senokot S) 1 tab PO BID EMPERATRIZ Stop: 05/25/19 22:27 Last Admin: 04/26/19 09:04 Dose: 1 tab Documented by: Tamsulosin HCl (Flomax) 0.4 mg PO DAILY [facility] Stop: 05/26/19 08:59 Last Admin: 04/26/19 09:06 Dose: 0.4 mg Documented by: Tiotropium [place] (Spiriva) 1 puffs INH DAILY EMPERATRIZ Stop: 05/26/19 08:59 Last Admin: 04/26/19 09:08 Dose: 1 puffs Documented by: Tramadol HCl (Ultram) 50 mg PO Q4H PRN PRN Reason: Pain Stop: 05/25/19 22:27 Last Admin: 04/26/19 12:32 Dose: 50 mg Documented by: Warfarin Sodium (Coumadin) 7.5 mg PO DAILY@1600 [facility] Stop: 05/26/19 15:59 (1) Sepsis Sepsis acute organ dysfunction status: unspecified Sepsis type: sepsis due to unspecified organism Qualified Code(s): A41.9 - Sepsis, unspecified organism (2) UTI (urinary tract infection) Hematuria presence: with hematuria Urinary tract infection type: site unspecified Qualified Code(s): N39.0 - Urinary tract infection, site not specified; R31.9 - Hematuria, unspecified (3) HTN (hypertension) Hypertension type: essential hypertension Qualified Code(s): I10 - Essential (primary) hypertension (4) Pulmonary embolism Pulmonary embolism type: unspecified Chronicity: chronic Acute cor pulmonale presence: without acute cor pulmonale Qualified Code(s): I27.82 - Chronic pulmonary embolism (5) COPD (chronic obstructive pulmonary disease) COPD type: emphysema Emphysema type: unspecified Qualified Code(s): J43.9 - Emphysema, unspecified
[2019-04-26] MEDS: WARFARIN SOD 7.5 MG TAB PO SCH (16:22)
[2019-04-26 17:32] LABS: Partial Thromboplastin Ratio 1.6; Partial Thromboplastin Time 44.1 Seconds (21.0-31.0)
[2019-04-26] MEDS: PROMETHAZINE HCL 12.5 MG in SODIUM CHLORIDE 0.9% 50 ML IV PRN (17:48)
[2019-04-26] MEDS ORDERED: HEPARIN IV BOLUS 5,000 UNITS in SYRINGE 0 ML IV ONE (19:30)
[2019-04-27] MEDS: PROMETHAZINE HCL 12.5 MG in SODIUM CHLORIDE 0.9% 50 ML IV PRN ×3 (00:40→21:11)
[2019-04-27] MEDS: TRAMADOL HCL 50 MG TABLET PO PRN ×5 (01:01→18:06)
[2019-04-27 01:27] LABS: Partial Thromboplastin Time 53.8 Seconds (21.0-31.0)
[2019-04-27] MEDS: IMIPENEM/CILASTATIN SODIUM 400 MG in DEXTROSE 5% 100 ML IV SCH ×2 (02:24→08:49)
[2019-04-27] MEDS: OXYCODONE HCL IR 5 MG TAB (IMMEDIATE RELEASE) PO PRN ×5 (02:29→20:09)
[2019-04-27] MEDS: HEPARIN SODIUM/DEXTROSE 25,000 UNITS/500 ML BAG IV SCH ×3 (03:32→19:47)
[2019-04-27] MEDS: ACETAMINOPHEN 65 ML IV PRN ×2 (04:33→15:26)
[2019-04-27] MEDS: ISOSORBIDE DINITRATE 10 MG TAB PO SCH ×2 (06:26→13:14)
[2019-04-27 08:07] LABS: Mean Corpuscular Hgb Conc 32.6 g/dL (32-36)
[2019-04-27 08:14] LABS: Hematocrit (blood only) 29.1 % (42-52); Hemoglobin 9.5 g/dL (14.0-18.0); Mean Corpuscular Volume 71.3 fL (80-100); RDW Coefficient of Variation 18.6 % (11.5-14.5); RDW Standard Deviation 48.5 fL (36.4-46.3); Red Blood Count 4.08 M/uL (4.7-6.1); White Blood Count 11.61 K/uL (4.8-10.8)
[2019-04-27 08:29] LABS: Mean Platelet Volume 10.3 fL (7.4-10.4); Platelet Count 142 K/uL (130-400)
[2019-04-27 08:30] LABS: Basophils # (auto) 0.02 K/uL (0-0.2); Basophils % (auto) 0.2 %; Eosinophils % (auto) 0.9 %; INR 1.6 (0.9-1.1); Immature Granulocytes # (auto) 0.05 K/uL (0.00-0.02); Immature Granulocytes % (auto) 0.4 %; Lymphocytes # (auto) 1.37 K/uL (1.2-3.4); Lymphocytes % (auto) 11.8 %; Monocytes # (auto) 1.16 K/uL (0.11-0.59); Neutrophils # (auto) 8.91 K/uL (1.4-6.5); Neutrophils % (auto) 76.7 %; Partial Thromboplastin Ratio 2.1; Platelet Estimate Normal (Normal); Prothrombin Time 16.1 Seconds (9.0-12.0)
[2019-04-27 08:37] LABS: Partial Thromboplastin Time 57.5 Seconds (21.0-31.0)
[2019-04-27 08:42] LABS: BUN Creatinine Ratio 15.7 (10-20); Calcium 8.8 mg/dl (8.5-10.1); Creatinine Clr Calc Pharmacy 96.6 ml/min; Est GFR (African American) 54.8; Est GFR (Non-African American) 47.3; Magnesium 2.3 mg/dl (1.8-2.4); Potassium 3.7 mmol/L (3.5-5.1)
[2019-04-27] MEDS: INSULIN ASPART 100 UNITS/ML 3 ML PEN SC SCH ×4 (08:52→20:45)
[2019-04-27] MEDS: DOCUSATE SODIUM/SENNA 50/8.6MG TAB PO SCH ×2 (08:52→20:01)
[2019-04-27] MEDS: METOPROLOL SUCC 25MG EXT REL TAB PO SCH ×2 (08:53→20:01)
[2019-04-27] MEDS: TAMSULOSIN HCL 0.4 MG CAP PO SCH (08:53)
[2019-04-27] MEDS: ASPIRIN 81 MG ECTAB PO SCH (08:53)
[2019-04-27] MEDS: INSULIN GLARGINE SOLOSTAR 100 UNITS/ML 3 ML PEN SQ SCH (08:53)
[2019-04-27] MEDS: FINASTERIDE 5 MG TAB PO SCH (08:53)
[2019-04-27] MEDS: PANTOprazole 40 MG TAB PO SCH (08:53)
[2019-04-27] MEDS: POLYETHYLENE (MIRALAX) 17 GM PACK PO SCH (08:54)
[2019-04-27] MEDS: NICOTINE 21 MG/24 HR TDSY TD SCH (08:54)
[2019-04-27] MEDS: TIOTROPIUM BROMIDE 5 PUFF/90 MCG INH INH SCH (08:55)
[2019-04-27] MEDS: FLUTICASONE PROPIONATE NA SPR 16 GM BTL SCH (08:58)
[2019-04-27] MEDS: MoRPHine SULFATE CR 15 MG TABCR PO SCH ×2 (09:05→20:01)
[2019-04-27] MEDS: GABAPENTIN 100 MG CAP PO SCH ×3 (09:53→20:00)
--- NOTE | 2019-04-27 12:11 | Hospitalist Progress Note ---
Date of Service April 27, 2019 Assessment & Plan (1) Sepsis: Secondary to UTI due to chronic Lloyd catheter Management as below Clinically better and blood counts are improving Urology consulted for further management of Lloyd catheter to prevent recurrent infection (2) UTI (urinary tract infection): This is a 48yo M with a PMH of chronic diastolic heart failure, history of PE on Coumadin, HTN, COPD, chronic pain with opioid dependence, mood disorder and recent ESBL UTI who presents with catheter malfunction beginning earlier today and was found to have sepsis in setting of urinary tract infection. -Meets sepsis criteria per CMS guidelines with fever of 38C, tachycardia at 130 and leukocytosis of 24K. Lactic within normal limits at 1.7 -Urinary symptoms and abnormal urinalysis in setting of chronic indwelling Lloyd, urinary retention and history of UTIs -Grew ESBL producing E. coli UTI a few months ago, treated with Invanz for 4-5 days -Started on Rocephin and imipenem in the ED. Also given 2 L NSS -Urine and blood cultures are positive for gram-negative bacilli, identification and sensitivity are pending -Blood cultures are positive for gram-negative bacilli, further identification and sensitivity pending -Urine culture grew E. coli resistant to fluoroquinolones -Clinically better we will continue intravenous ertapenem for now (3) Chronic pain disorder: Continue MS Contin and MSIR If additional pain medications are needed we will consult pain therapist Complains to have increasing pain since admission Will ask for evaluation by pain therapist before giving any more narcotics (4) Opioid dependence: Will not provide any extra Dilaudid may need to have pain therapy evaluation to provide increasing pain medications (5) MAHAMED (acute kidney injury): Likely secondary to dehydration and may be complicated by overuse of diuretics Will not provide any intravenous fluid and advised to drink more orally Hold diuretics including torsemide and Spironolactone We will monitor PRP-creatinine has been improving Creatinine has been improving We will restart diuretics in a day or 2 Hyponatremia Likely secondary to use of diuretics We will monitor sodium levels while in the hospital Sodium is 130 today (6) Chronic diastolic CHF (congestive heart failure): No evidence of failure at this time Diuretics are on hold No evidence of fluid overload for now (7) HTN (hypertension): BP seems to be controlled (8) Pulmonary embolism: Has been on Coumadin Subtherapeutic at this time Continue heparin and Coumadin (9) Depression with anxiety: (10) COPD (chronic obstructive pulmonary disease): No exacerbation DVT prophylaxis Intravenous heparin and oral Coumadin until INR is therapeutic Subjective 04/26 The patient was seen and examined in medical floor Recently [facility] and then went home about 4 or 5 days before coming to the ER He was admitted with another attack of UTI and acute on chronic renal failure He has been feeling a little bit better since admission Complains to have nonspecific pain 04/27 Patient was seen and examined in medical floor He continues to complain pain which is worse at the back with radiation to the legs He has been on MS Contin, MSIR and Ultram for pain control He denies any chest pain and/or shortness of breath, any abdominal pain and no nausea or vomiting Review of Systems Review of Systems: All systems reviewed and are unremarkable except as noted below Constitutional: + fatigue and + weakness; no fever and no chills Cardiovascular: no chest pain Gastrointestinal: + abdominal pain (Minimal right quadrant pain without any nausea and/or vomiting or distention of the abdomen) Genitourinary: + dysuria, + genital pain (Secondary to catheter placement) and + problem reported (Hypogastric pain) Physical Exam Physical Exam: Lying in bed with distress due to nonspecific back pain and illness Constitutional: well developed, well nourished, + acute distress (Minimal distress at rest), + ill appearing, + obese and comfortable Eyes: PERRL, conjunctivae normal, anicteric sclerae ENMT: external ear and nose normal, oropharynx normal Neck: trachea midline, no thyromegaly neck nontender Respiratory: normal respiratory effort, lungs clear to auscultation normal percussion; does not use accessory muscles Auscultation: + diminished lung sounds; no crackles, no rhonchi and no wheezes Cardiovascular: Rate/Rhythm: regular rate and regular rhythm Heart Sounds: normal S1 and normal S2; no gallop, no murmur and no cardiac rub Vessels: normal peripheral pulses; no JVD Extremities: + pedal edema (1+ edema bilaterally-chronic in nature) Gastrointestinal (Abdomen): Inspection/Auscultation: + abdomen distended and normal bowel sounds Percussion/Palpation: + abdomen tender (Mild left flank) and abdomen soft; no abdominal mass Musculoskeletal: Spine: thoracic spine normal to inspection and lumbar spine normal to inspection; no cervical spinal tenderness Extremities: strength 5/5 throughout Skin: no rashes, warm and dry normal turgor; no lesions Neurologic: moves all extremities; no focal motor deficits Psychiatric: A+Ox3, euthymic affect Orientation: cooperative Genitourinary: Has Lloyd catheter in situ Lymphatic: no cervical or axillary lymphadenopathy no inguinal lymphadenopathy Results & Data Vital Signs (Past 12 Hours) Vital Signs Temp Pulse Pulse Pulse Resp BP Pulse Ox 04/27/19 11:32 37.2 C 96 H 22 114/69 97 04/27/19 06:56 37.5 C 91 H 18 111/70 95 04/27/19 06:32 37.4 C 04/27/19 03:43 38.7 C H 108 H 20 133/87 96 04/27/19 01:18 105 H Laboratory Results Short CBC 04/27/19 Range/Units 07:49 WBC 11.61 H (4.8-10.8) K/uL Hgb 9.5 L (14.0-18.0) g/dL Hct 29.1 L (42-52) % Plt Count 142 (130-400) K/uL BMP 04/27/19 07:49 Sodium 130 L Potassium 3.7 Chloride 97 L Carbon Dioxide 25 BUN 26 H Creatinine 1.68 H D Glucose 126 H Calcium 8.8 Medications Administered Current Inpatient Medications Acetaminophen (Tylenol) 325 mg PO Q6H PRN PRN Reason: Pain or Fever Stop: 05/25/19 22:27 Aspirin (Ecotrin Ectab) [address] [facility] Stop: 05/26/19 08:59 Last Admin: 04/27/19 08:53 Dose: 81 mg Documented by: Dextrose (Dextrose 50%) 25 - 50 ml IV UD PRN; Protocol PRN Reason: Hypoglycemia Protocol Stop: 05/25/19 22:27 Finasteride (Proscar) 5 mg PO QAM [facility] Stop: 05/26/19 08:59 Last Admin: 04/27/19 08:53 Dose: 5 mg Documented by: Fluticasone Propionate (Flonase) 2 sprays NA QAM [facility] Stop: 05/26/19 08:59 Last Admin: 04/27/19 08:58 Dose: 2 sprays Documented by: Gabapentin (Neurontin) 200 mg PO TID [facility] Stop: 05/26/19 08:59 Last Admin: 04/27/19 09:53 Dose: 200 mg Documented by: Glucagon (Glucagen) 1 mg SQ UD PRN; Protocol PRN Reason: Hypoglycemia Protocol Stop: 05/25/19 22:27 Glucose (Glucose 40%) 15 - 30 gm PO UD PRN; Protocol PRN Reason: Hypoglycemia Protocol Stop: 05/25/19 22:27 Glucose (Dex4 Glucose) 4 - 8 tabs PO UD PRN; Protocol PRN Reason: Hypoglycemia Protocol Stop: 05/25/19 22:27 Promethazine HCl 12.5 mg/ (Sodium Chloride) 50.5 mls @ 202 mls/hr IV Q6H PRN PRN Reason: Nausea And Vomiting Stop: 05/25/19 22:27 Last Infusion: 04/27/19 10:16 Dose: Infused Documented by: Heparin Sodium/Dextrose (Heparin Sodium/Dextrose) 25,000 units in 500 mls @ 61 mls/hr IV .Q8H12M [facility]; Protocol Stop: 05/26/19 00:59 Last Admin: 04/27/19 11:22 Dose: 3,050 units/hr, 61 mls/hr Documented by: Acetaminophen (Ofirmev) 65 mls @ 200 mls/hr IV Q6H PRN PRN Reason: fever Stop: 05/26/19 05:14 Last Infusion: 04/27/19 04:53 Dose: Infused Documented by: Imipenem/Cilastatin Sodium 500 (mg/ Dextrose) 110 mls @ 108 mls/hr IV Q6H [facility]; Protocol Stop: 05/05/19 15:02 Insulin Aspart (Novolog Flexpen) 0 units SC ACHS [facility] Stop: 05/25/19 22:27 Last Admin: 04/27/19 08:52 Dose: 2 units Documented by: Insulin Glargine (Lantus Solostar Pen) 5 units SQ DAILY [facility] Stop: 05/26/19 08:59 Last Admin: 04/27/19 08:53 Dose: 5 units Documented by: Ipratropium Drummond (Atrovent 0.02% 0.5mg/2.5ml) 0.5 mg INH Q4R PRN PRN Reason: SHORTNESS OF BREATH OR WHEEZIN Stop: 05/25/19 22:27 Isosorbide Dinitrate (Isordil) 10 mg PO DAILY@0700,1200 [facility] Stop: 05/26/19 06:59 Last Admin: 04/27/19 06:26 Dose: 10 mg Documented by: Levalbuterol HCl (Xopenex 1.25mg/0.5ml Neb) 1.25 mg INH Q4R PRN PRN Reason: SHORTNESS OF BREATH OR WHEEZIN Stop: 05/25/19 22:27 Lorazepam (Ativan) 1 mg PO TID PRN PRN Reason: Anxiety Stop: 05/25/19 22:27 Metoprolol Succinate (Toprol Xl) 25 mg PO BID [facility] Stop: 05/26/19 04:14 Last Admin: 04/27/19 08:53 Dose: 25 mg Documented by: Miscellaneous (Carbohydrates For Hypoglycemia) 15 - 30 gm PO UD PRN PRN Reason: Hypoglycemia Treatment Stop: 05/25/19 22:27 Miscellaneous (Remove Nicoderm Patch) 1 ea N/A HS [facility] Stop: 05/26/19 08:58 Last Admin: 04/26/19 20:11 Dose: Not Given Documented by: Miscellaneous Information (Consult) 1 ea N/A UD PRN PRN Reason: Consult Stop: 05/25/19 23:07 Morphine Sulfate (Ms Contin) 15 mg PO Q12 [facility] Stop: 05/10/19 20:59 Last Admin: 04/27/19 09:05 Dose: 15 mg Documented by: Nicotine (Nicoderm Cq) 21 mg TD QAM [facility] Stop: 05/25/19 22:27 Last Admin: 04/27/19 08:54 Dose: 21 mg Documented by: Nitroglycerin (Nitrostat) 0.4 mg SL UD PRN PRN Reason: Chest Pain Stop: 05/25/19 22:27 Oxycodone HCl (Roxicodone Immediate Rel) 15 mg PO Q4H PRN PRN Reason: pain not relieved by tylenol Stop: 05/09/19 20:44 Last Admin: 04/27/19 11:43 Dose: 15 mg Documented by: Pantoprazole Sodium (Protonix) 40 mg PO QAM [facility] Stop: 05/26/19 08:59 Last Admin: 04/27/19 08:53 Dose: 40 mg Documented by: Phenazopyridine HCl (Pyridium) 100 mg PO TID PRN PRN Reason: Bladder pain Stop: 05/26/19 10:37 Last Admin: 04/26/19 12:26 Dose: 100 mg Documented by: Polyethylene Glycol (Miralax Powder Packet) 17 gm PO DAILY [facility] Stop: 05/26/19 11:59 Last Admin: 04/27/19 08:54 Dose: 17 gm Documented by: Senna/Docusate Sodium (Senokot S) 1 tab PO BID EMPERATRIZ Stop: 05/25/19 22:27 Last Admin: 04/27/19 08:52 Dose: 1 tab Documented by: Tamsulosin HCl (Flomax) 0.4 mg PO DAILY EMPERATRIZ Stop: 05/26/19 08:59 Last Admin: 04/27/19 08:53 Dose: 0.4 mg Documented by: Tiotropium Drummond (Spiriva) 1 puffs INH DAILY EMPERATRIZ Stop: 05/26/19 08:59 Last Admin: 04/27/19 08:55 Dose: 1 puffs Documented by: Tramadol HCl (Ultram) 50 mg PO Q4H PRN PRN Reason: Pain Stop: 05/25/19 22:27 Last Admin: 04/27/19 09:05 Dose: 50 mg Documented by: Warfarin Sodium (Coumadin) 7.5 mg PO DAILY@1600 [facility] Stop: 05/26/19 15:59 Last Admin: 04/26/19 16:22 Dose: 7.5 mg Documented by: (1) Sepsis Sepsis acute organ dysfunction status: unspecified Sepsis type: sepsis due to unspecified organism Qualified Code(s): A41.9 - Sepsis, unspecified organism (2) UTI (urinary tract infection) Hematuria presence: with hematuria Urinary tract infection type: site unspecified Qualified Code(s): N39.0 - Urinary tract infection, site not specified; R31.9 - Hematuria, unspecified (3) HTN (hypertension) Hypertension type: essential hypertension Qualified Code(s): I10 - Essential (primary) hypertension (4) Pulmonary embolism Pulmonary embolism type: unspecified Chronicity: chronic Acute cor pulmonale presence: without acute cor pulmonale Qualified Code(s): I27.82 - Chronic pulmonary embolism (5) COPD (chronic obstructive pulmonary disease) COPD type: emphysema Emphysema type: unspecified Qualified Code(s): J43.9 - Emphysema, unspecified
[2019-04-27] MEDS: WARFARIN SOD 7.5 MG TAB PO SCH (15:25)
[2019-04-27] MEDS: IMIPENEM/CILASTATIN SODIUM 500 MG in DEXTROSE 5% 100 ML IV SCH ×2 (15:49→19:58)
[2019-04-27] MEDS ORDERED: BISACODYL 5 MG TABEC PO PRN (18:15)
--- NOTE | 2019-04-27 21:53 | Infectious Disease Progress Nt ---
Date of Service April 27, 2019 Assessment & Plan (1) Gram negative septicemia: Patient with gram-negative sepsis with likely left pyelonephritis in the setting of chronic indwelling Lloyd catheter with recent difficulty with catheter changes. Given history of ESBL producing E. coli, choice of imipenem appropriate for now pending final identification and sensitivities. Will adjust if necessary once these are available. Length of IV antibiotics yet to be determined. Will follow. (2) Pyelonephritis of left kidney: (3) Indwelling Lloyd catheter present: Subjective Patient seen in follow-up for sepsis and urinary tract infection. Cultures growing E. coli, sensitivities pending. Patient improving on IV antibiotics. No new complaints. Review of Systems Review of Systems: All systems reviewed & are unremarkable except as noted in HPI & below Physical Exam Constitutional: WD/WN, vitals as above comfortable; no acute distress Eyes: PERRL, conjunctivae normal, anicteric sclerae ENMT: external ear and nose normal, oropharynx normal Neck: trachea midline, no thyromegaly neck nontender Respiratory: normal respiratory effort, lungs clear to auscultation normal percussion; does not use accessory muscles Cardiovascular: Rate/Rhythm: regular rate and regular rhythm Heart Sounds: normal S1 and normal S2; no gallop, no murmur and no cardiac rub Vessels: normal peripheral pulses; no JVD Gastrointestinal (Abdomen): Inspection/Auscultation: abdomen normal to inspection and normal bowel sounds Percussion/Palpation: + abdomen tender (Mild left flank); no hepatosplenomegaly and no abdominal mass Musculoskeletal: no cyanosis or clubbing, extremities motor strength 5/5 S pine: thoracic spine normal to inspection and lumbar spine normal to inspection; no cervical spinal tenderness Skin: no rashes, warm and dry normal turgor; no lesions Neurologic: patellar DTR's 2+ bilat, sensation intact no focal motor deficits Psychiatric: A+Ox3, euthymic affect Orientation: cooperative Lymphatic: no cervical or axillary lymphadenopathy no inguinal lymphadenopathy Results & Data Vital Signs (Past 12 Hours) Vital Signs Temp Pulse Pulse Resp BP Pulse Ox 04/27/19 19:00 37.9 C H 91 H 18 142/72 H 96 04/27/19 14:49 38.7 C H 97 H 18 110/69 94 04/27/19 11:32 37.2 C 96 H 22 114/69 97 Laboratory Results Short CBC 04/27/19 Range/Units 07:49 WBC 11.61 H (4.8-10.8) K/uL Hgb 9.5 L (14.0-18.0) g/dL Hct 29.1 L (42-52) % Plt Count 142 (130-400) K/uL BMP 04/27/19 07:49 Sodium 130 L Potassium 3.7 Chloride 97 L Carbon Dioxide 25 BUN 26 H Creatinine 1.68 H D Glucose 126 H Calcium 8.8 Diagnostic Findings Microbiology 04/25/19 19:50 Urine,Straight Cath Urine Culture - Final Escherichia coli 04/25/19 19:46 Blood Aerobic Blood Culture - Preliminary Gram negative bacilli 04/25/19 19:46 Blood Anaerobic Blood Culture - Preliminary Gram negative bacilli 04/25/19 19:46 Blood Aerobic Blood Culture - Preliminary Gram negative bacilli 04/25/19 19:46 Blood Anaerobic Blood Culture - Preliminary Gram negative bacilli PG Care Time/CCT Total # of Minutes Spent Total Time Spent with Patient: Total time spent is greater than 50% in special services coordinator rdination of care (as documented) at patient's floor/unit and/or counseling patient:
[2019-04-28] MEDS: OXYCODONE HCL IR 5 MG TAB (IMMEDIATE RELEASE) PO PRN ×4 (00:08→22:05)
[2019-04-28] MEDS: ACETAMINOPHEN 65 ML IV PRN (00:27)
[2019-04-28] MEDS: TRAMADOL HCL 50 MG TABLET PO PRN ×2 (02:14→06:18)
[2019-04-28] MEDS: IMIPENEM/CILASTATIN SODIUM 500 MG in DEXTROSE 5% 100 ML IV SCH ×3 (02:16→17:53)
[2019-04-28] MEDS: HEPARIN SODIUM/DEXTROSE 25,000 UNITS/500 ML BAG IV SCH ×3 (03:31→20:39)
[2019-04-28] MEDS: ISOSORBIDE DINITRATE 10 MG TAB PO SCH ×2 (06:19→11:28)
[2019-04-28 07:39] LABS: INR 1.7 (0.9-1.1); Partial Thromboplastin Ratio 2.6; Prothrombin Time 17.2 Seconds (9.0-12.0)
[2019-04-28 07:44] LABS: Partial Thromboplastin Time 69.4 Seconds (21.0-31.0)
[2019-04-28 07:47] LABS: Creatinine Clr Calc Pharmacy 107.6 ml/min; Est GFR (African American) 62.4; Est GFR (Non-African American) 53.8
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
[2019-04-28] MEDS: INSULIN ASPART 100 UNITS/ML 3 ML PEN SC SCH ×5 (09:54→21:30)
[2019-04-28] MEDS: POLYETHYLENE (MIRALAX) 17 GM PACK PO SCH (11:27)
[2019-04-28] MEDS: TAMSULOSIN HCL 0.4 MG CAP PO SCH (11:27)
[2019-04-28] MEDS: METOPROLOL SUCC 25MG EXT REL TAB PO SCH ×2 (11:27→21:26)
[2019-04-28] MEDS: DOCUSATE SODIUM/SENNA 50/8.6MG TAB PO SCH ×2 (11:28→21:25)
[2019-04-28] MEDS: PANTOprazole 40 MG TAB PO SCH (11:28)
[2019-04-28] MEDS: ASPIRIN 81 MG ECTAB PO SCH (11:28)
[2019-04-28] MEDS: FLUTICASONE PROPIONATE NA SPR 16 GM BTL SCH (11:29)
[2019-04-28] MEDS: NICOTINE 21 MG/24 HR TDSY TD SCH (11:29)
[2019-04-28] MEDS: TIOTROPIUM BROMIDE 5 PUFF/90 MCG INH INH SCH (11:29)
[2019-04-28] MEDS: FINASTERIDE 5 MG TAB PO SCH (11:29)
[2019-04-28] MEDS: GABAPENTIN 100 MG CAP PO SCH ×3 (11:30→21:25)
[2019-04-28] MEDS: INSULIN GLARGINE SOLOSTAR 100 UNITS/ML 3 ML PEN SQ SCH (11:30)
[2019-04-28] MEDS: MoRPHine SULFATE CR 15 MG TABCR PO SCH ×2 (11:46→21:25)
[2019-04-28 14:27] LABS: Partial Thromboplastin Ratio 2.7
[2019-04-28 14:47] LABS: Partial Thromboplastin Time 72.2 Seconds (21.0-31.0)
[2019-04-28] MEDS: HYDROmorphone INJ 1 MG/ML SYRINGE IV PRN (16:12)
--- NOTE | 2019-04-28 17:05 | Hospitalist Progress Note ---
Date of Service April 28, 2019 Assessment & Plan (1) Sepsis: Secondary to UTI due to chronic Lloyd catheter Management as below Clinically better and blood counts are improving Urology consulted for further management of Lloyd catheter to prevent recurrent infection Await urology evaluation and recommendation (2) UTI (urinary tract infection): This is a 48yo M with a PMH of chronic diastolic heart failure, history of PE on Coumadin, HTN, COPD, chronic pain with opioid dependence, mood disorder and recent ESBL UTI who presents with catheter malfunction beginning earlier today and was found to have sepsis in setting of urinary tract infection. -Meets sepsis criteria per CMS guidelines with fever of 38C, tachycardia at 130 and leukocytosis of 24K. Lactic within normal limits at 1.7 -Urinary symptoms and abnormal urinalysis in setting of chronic indwelling Lloyd, urinary retention and history of UTIs -Grew ESBL producing E. coli UTI a few months ago, treated with Invanz for 4-5 days -Started on Rocephin and imipenem in the ED. Also given 2 L NSS -Urine and blood cultures are positive for gram-negative bacilli, identification and sensitivity are pending -Blood cultures are positive for gram-negative bacilli, further identification and sensitivity pending -Urine culture grew E. coli resistant to fluoroquinolones -Clinically better we will continue intravenous ertapenem for now -Urine culture grew E. coli and the blood culture grew E. coli as well- pansensitive -We will discuss with ID for possible oral antibiotic on discharge (3) Chronic pain disorder: Continue MS Contin and MSIR If additional pain medications are needed we will consult pain therapist Complains to have increasing pain since admission Will ask for evaluation by pain therapist before giving any more narcotics Appreciate pain therapy input and recommendation Has been getting Dilaudid 1 mg twice daily as needed on top of current pain medication (4) Opioid dependence: Will not provide any extra Dilaudid may need to have pain therapy evaluation to provide increasing pain medications (5) MAHAMED (acute kidney injury): Likely secondary to dehydration and may be complicated by overuse of diuretics Will not provide any intravenous fluid and advised to drink more orally Hold diuretics including torsemide and Spironolactone We will monitor PRP-creatinine has been improving Creatinine has been improving We will restart diuretics in a day or 2 Renal function has been improving Hyponatremia Likely secondary to use of diuretics We will monitor sodium levels while in the hospital Sodium is 130 today (6) Chronic diastolic CHF (congestive heart failure): No evidence of failure at this time Diuretics are on hold No evidence of fluid overload for now (7) HTN (hypertension): BP seems to be controlled (8) Pulmonary embolism: Has been on Coumadin Subtherapeutic at this time Continue heparin and Coumadin (9) Depression with anxiety: (10) COPD (chronic obstructive pulmonary disease): No exacerbation DVT prophylaxis Intravenous heparin and oral Coumadin until INR is therapeutic INR is 1.7 on 04/28 We will recheck tomorrow Subjective 04/26 The patient was seen and examined in medical floor Recently he was in [facility] from the hospital and then went home about 4 or 5 days before coming to the ER He was admitted with another attack of UTI and acute on chronic renal failure He has been feeling a little bit better since admission Complains to have nonspecific pain 04/27 Patient was seen and examined in medical floor He continues to complain pain which is worse at the back with radiation to the legs He has been on MS Contin, MSIR and Ultram for pain control He denies any chest pain and/or shortness of breath, any abdominal pain and no nausea or vomiting 04/28 The patient was seen and examined in medical floor He has been feeling a lot better but complains to have extreme weakness The pain seems to be under control Denies any significant symptoms Review of Systems Review of Systems: All systems reviewed and are unremarkable except as noted below Constitutional: + fatigue and + weakness Musculoskeletal: Has back pain with radiation to the legs Physical Exam Physical Exam: Lying in bed comfortably Constitutional: well developed, well nourished, + ill appearing, + obese and comfortable; no acute distress Eyes: PERRL, conjunctivae normal, anicteric sclerae ENMT: external ear and nose normal, oropharynx normal Neck: trachea midline, no thyromegaly neck nontender Respiratory: normal respiratory effort and normal percussion; no respiratory distress and does not use accessory muscles Auscultation: + diminished lung sounds; no crackles, no rhonchi and no wheezes Cardiovascular: Rate/Rhythm: regular rate and regular rhythm Heart Sounds: normal S1 and normal S2; no gallop, no murmur and no cardiac rub Extremities: + pedal edema (1+ edema bilaterally-chronic in nature) Gastrointestinal (Abdomen): Inspection/Auscultation: + abdomen distended and normal bowel sounds Percussion/Palpation: + abdomen tender (Mild left flank) and abdomen soft; no abdominal mass Musculoskeletal: Spine: thoracic spine normal to inspection and lumbar spine normal to inspection; no cervical spinal tenderness Extremities: strength 5/5 throughout Skin: no rashes, warm and dry normal turgor; no lesions Neurologic: moves all extremities; no focal motor deficits Psychiatric: A+Ox3, euthymic affect Orientation: cooperative Lymphatic: no cervical or axillary lymphadenopathy no inguinal lymphadenopathy Results & Data Vital Signs (Past 12 Hours) Vital Signs Temp Pulse Pulse Resp BP Pulse Ox 04/28/19 14:53 36.7 C 86 17 143/80 H 95 04/28/19 11:19 37.1 C 91 H 17 135/79 95 04/28/19 09:54 37.6 C H 91 H 17 122/79 93 Laboratory Results [facility] 04/28/19 06:54 Creatinine 1.51 H Medications Administered Current Inpatient Medications Acetaminophen (Tylenol) 325 mg PO Q6H PRN PRN Reason: Pain or Fever Stop: 05/25/19 22:27 Aspirin (Ecotrin Ectab) 81 mg PO [facility] Stop: 05/26/19 08:59 Last Admin: 04/28/19 11:28 Dose: 81 mg Documented by: Bisacodyl (Dulcolax) 10 mg PO DAILY PRN PRN Reason: Constipation Stop: 05/27/19 18:14 Last Admin: 04/27/19 19:47 Dose: 10 mg Documented by: Dextrose (Dextrose 50%) 25 - 50 ml IV UD PRN; Protocol PRN Reason: Hypoglycemia Protocol Stop: 05/25/19 22:27 [facility]aster[facility] ([facility]) [facility] [place] Stop: 05/26/19 08:59 Last Admin: 04/28/19 11:29 Dose: 5 mg Documented by: Fluticasone Propionate (Flonase) 2 sprays NA QAM [facility] Stop: 05/26/19 08:59 Last Admin: 04/28/19 11:29 Dose: 2 sprays Documented by: Gabapentin (Neurontin) 200 mg PO TID [facility] Stop: 05/26/19 08:59 Last Admin: 04/28/19 16:14 Dose: 200 mg Documented by: Glucagon (Glucagen) 1 mg SQ UD PRN; Protocol PRN Reason: Hypoglycemia Protocol Stop: 05/25/19 22:27 Glucose (Glucose 40%) 15 - 30 gm PO UD PRN; Protocol PRN Reason: Hypoglycemia Protocol Stop: 05/25/19 22:27 Glucose (Dex4 Glucose) 4 - 8 tabs PO UD PRN; Protocol PRN Reason: Hypoglycemia Protocol Stop: 05/25/19 22:27 Hydromorphone HCl (Dilaudid) 1 mg IV BID PRN PRN Reason: Pain Stop: 05/12/19 08:44 Last Admin: 04/28/19 16:12 Dose: 1 mg Documented by: Promethazine HCl 12.5 mg/ (Sodium Chloride) 50.5 mls @ 202 mls/hr IV Q6H PRN PRN Reason: Nausea And Vomiting Stop: 05/25/19 22:27 Last Infusion: 04/27/19 21:39 Dose: Infused Documented by: Heparin Sodium/Dextrose (Heparin Sodium/Dextrose) 25,000 units in 500 mls @ 55 mls/hr IV .Q9H6M EMPERATRIZ; Protocol Stop: 05/26/19 00:59 Last Titration: 04/28/19 15:11 Dose: 2,750 units/hr, 55 mls/hr Documented by: Acetaminophen (Ofirmev) 65 mls @ 200 mls/hr IV Q6H PRN PRN Reason: fever Stop: 05/26/19 05:14 Last Infusion: 04/28/19 00:47 Dose: Infused Documented by: Imipenem/Cilastatin Sodium 500 (mg/ Dextrose) 110 mls @ 108 mls/hr IV Q6H EMPERATRIZ; Protocol Stop: 05/05/19 19:02 Last Infusion: 04/28/19 13:07 Dose: Infused Documented by: Insulin Aspart (Novolog Flexpen) 0 units SC ACHS [facility] Stop: 05/25/19 22:27 Last Admin: 04/28/19 12:35 Dose: Not Given Documented by: Insulin Glargine (Lantus Solostar Pen) 5 units SQ DAILY [facility] Stop: 05/26/19 08:59 Last Admin: 04/28/19 11:30 Dose: 5 units Documented by: Ipratropium Norcatur (Atrovent 0.02% 0.5mg/2.5ml) 0.5 mg INH Q4R PRN PRN Reason: SHORTNESS OF BREATH OR WHEEZIN Stop: 05/25/19 22:27 Isosorbide Dinitrate (Isordil) 10 mg PO DAILY@0700,1200 [facility] Stop: 05/26/19 06:59 Last Admin: 04/28/19 11:28 Dose: 10 mg Documented by: Levalbuterol HCl (Xopenex 1.25mg/0.5ml Neb) 1.25 mg INH Q4R PRN PRN Reason: SHORTNESS OF BREATH OR WHEEZIN Stop: 05/25/19 22:27 Lorazepam (Ativan) 1 mg PO TID PRN PRN Reason: Anxiety Stop: 05/25/19 22:27 Metoprolol Succinate (Toprol Xl) 25 mg PO BID [facility] Stop: 05/26/19 04:14 Last Admin: 04/28/19 11:27 Dose: 25 mg Documented by: Miscellaneous (Carbohydrates For Hypoglycemia) 15 - 30 gm PO UD PRN PRN Reason: Hypoglycemia Treatment Stop: 05/25/19 22:27 Miscellaneous (Remove Nicoderm Patch) 1 ea N/A HS [facility] Stop: 05/26/19 08:58 Last Admin: 04/27/19 20:01 Dose: Not Given Documented by: Miscellaneous Information (Consult) 1 ea N/A UD PRN PRN Reason: Consult Stop: 05/25/19 23:07 Morphine Sulfate (Ms Contin) 15 mg PO Q12 [facility] Stop: 05/10/19 20:59 Last Admin: 04/28/19 11:46 Dose: 15 mg Documented by: Nicotine (Nicoderm Cq) 21 mg TD QAM [facility] Stop: 05/25/19 22:27 Last Admin: 04/28/19 11:29 Dose: 21 mg Documented by: Nitroglycerin (Nitrostat) 0.4 mg SL UD PRN PRN Reason: Chest Pain Stop: 05/25/19 22:27 Oxycodone HCl (Roxicodone Immediate Rel) 15 mg PO Q4H PRN PRN Reason: pain not relieved by tylenol Stop: 05/09/19 20:44 Last Admin: 04/28/19 04:15 Dose: 15 mg Documented by: Pantoprazole Sodium (Protonix) 40 mg PO QAM [facility] Stop: 05/26/19 08:59 Last Admin: 04/28/19 11:28 Dose: 40 mg Documented by: Phenazopyridine HCl (Pyridium) 100 mg PO TID PRN PRN Reason: Bladder pain Stop: 05/26/19 10:37 Last Admin: 04/26/19 12:26 Dose: 100 mg Documented by: Polyethylene Glycol (Miralax Powder Packet) 17 gm PO DAILY [facility] Stop: 05/26/19 11:59 Last Admin: 04/28/19 11:27 Dose: 17 gm Documented by: Senna/Docusate Sodium (Senokot S) 1 tab PO BID [facility] Stop: 05/25/19 22:27 Last Admin: 04/28/19 11:28 Dose: 1 tab Documented by: Tamsulosin HCl (Flomax) 0.4 mg PO DAILY [facility] Stop: 05/26/19 08:59 Last Admin: 04/28/19 11:27 Dose: 0.4 mg Documented by: Tiotropium Norcatur (Spiriva) 1 puffs INH DAILY [facility] Stop: 05/26/19 08:59 Last Admin: 04/28/19 11:29 Dose: 1 puffs Documented by: Warfarin Sodium (Coumadin) 7.5 mg PO DAILY@1600 [facility] Stop: 05/26/19 15:59 Last Admin: 04/27/19 15:25 Dose: 7.5 mg Documented by: (1) Sepsis Sepsis acute organ dysfunction status: unspecified Sepsis type: sepsis due to unspecified organism Qualified Code(s): A41.9 - Sepsis, unspecified organism (2) UTI (urinary tract infection) Hematuria presence: with hematuria Urinary tract infection type: site unspecified Qualified Code(s): N39.0 - Urinary tract infection, site not specified; R31.9 - Hematuria, unspecified (3) HTN (hypertension) Hypertension type: essential hypertension Qualified Code(s): I10 - Essential (primary) hypertension (4) Pulmonary embolism Pulmonary embolism type: unspecified Chronicity: chronic Acute cor pulmonale presence: without acute cor pulmonale Qualified Code(s): I27.82 - Chronic pulmonary embolism (5) COPD (chronic obstructive pulmonary disease) COPD type: emphysema Emphysema type: unspecified Qualified Code(s): J43.9 - Emphysema, unspecified
[2019-04-28] MEDS: WARFARIN SOD 7.5 MG TAB PO SCH (17:53)
[2019-04-28] MEDS ORDERED: HYDROmorphone INJ 0.5 MG/0.5 ML SYR IV STA (19:38)
--- NOTE | 2019-04-28 20:11 | Infectious Disease Progress Nt ---
Date of Service April 28, 2019 Assessment & Plan (1) Escherichia coli sepsis: 48-year-old male with E. coli sepsis and urinary tract infection in the setting of indwelling Lloyd catheter with clinical response to current antibiotics. Await final sensitivity results, will likely be able to transition to oral antibiotics in the next day or 2 if follow-up blood cultures negative. Will follow. (2) Pyelonephritis of left kidney: Results & Data Vital Signs (Past 12 Hours) Vital Signs Temp Pulse Pulse Resp BP Pulse Ox 04/28/19 18:57 36.7 C 99 H 20 136/82 96 04/28/19 14:53 36.7 C 86 17 143/80 H 95 04/28/19 11:19 37.1 C 91 H 17 135/79 95 04/28/19 09:54 37.6 C H 91 H 17 122/79 93 Laboratory Results [facility] 04/28/19 06:54 Creatinine 1.51 H Diagnostic Findings Microbiology 04/25/19 19:46 Blood Aerobic Blood Culture - Final Escherichia coli 04/25/19 19:46 Blood Anaerobic Blood Culture - Final Escherichia coli 04/25/19 19:46 Blood Aerobic Blood Culture - Final Escherichia coli 04/25/19 19:46 Blood Anaerobic Blood Culture - Final Escherichia coli 04/25/19 19:50 Urine,Straight Cath Urine Culture - Final Escherichia coli PG Care Time/CCT Total # of Minutes Spent Total Time Spent with Patient: Total time spent is greater than 50% in coordination of care (as documented) at patient's floor/unit and/or counseling patient:
[2019-04-28 21:45] LABS: Partial Thromboplastin Ratio 2.3; Partial Thromboplastin Time 61.9 Seconds (21.0-31.0)
[2019-04-28] MEDS: PROMETHAZINE HCL 12.5 MG in SODIUM CHLORIDE 0.9% 50 ML IV PRN (22:05)
[2019-04-29] MEDS: IMIPENEM/CILASTATIN SODIUM 500 MG in DEXTROSE 5% 100 ML IV SCH ×4 (00:32→18:23)
[2019-04-29] MEDS: OXYCODONE HCL IR 5 MG TAB (IMMEDIATE RELEASE) PO PRN ×6 (02:04→23:16)
[2019-04-29] MEDS ORDERED: SOD PHOSPHATE/SOD BIPHOSPHATE ENEMA 132 ML BTL PR ONE ×2 (02:28→06:27)
[2019-04-29] MEDS: HEPARIN SODIUM/DEXTROSE 25,000 UNITS/500 ML BAG IV SCH (06:30)
[2019-04-29 08:30] LABS: INR 2.3 (0.9-1.1); Prothrombin Time 22.4 Seconds (9.0-12.0)
[2019-04-29 08:33] LABS: Hematocrit (blood only) 31.1 % (42-52); Mean Corpuscular Hgb Conc 32.2 g/dL (32-36); Mean Corpuscular Volume 72.3 fL (80-100); Mean Platelet Volume 10.4 fL (7.4-10.4); Platelet Count 221 K/uL (130-400); RDW Coefficient of Variation 19.2 % (11.5-14.5); RDW Standard Deviation 50.3 fL (36.4-46.3); White Blood Count 11.11 K/uL (4.8-10.8)
[2019-04-29] MEDS: ISOSORBIDE DINITRATE 10 MG TAB PO SCH ×2 (08:43→12:45)
[2019-04-29] MEDS: MoRPHine SULFATE CR 15 MG TABCR PO SCH ×2 (08:43→20:59)
[2019-04-29] MEDS: TAMSULOSIN HCL 0.4 MG CAP PO SCH (08:43)
[2019-04-29] MEDS: NICOTINE 21 MG/24 HR TDSY TD SCH (08:43)
[2019-04-29] MEDS: POLYETHYLENE (MIRALAX) 17 GM PACK PO SCH (08:43)
[2019-04-29] MEDS: FLUTICASONE PROPIONATE NA SPR 16 GM BTL SCH (08:43)
[2019-04-29] MEDS: GABAPENTIN 100 MG CAP PO SCH ×3 (08:43→21:00)
[2019-04-29] MEDS: ASPIRIN 81 MG ECTAB PO SCH (08:43)
[2019-04-29 08:44] LABS: ALC (manual) 1.44 K/uL (1.2-3.4); Eosinophils # (manual) 0.39 K/uL (0-0.5); Eosinophils % (manual) 3.5 %; Lymphocytes # (manual) 1.44 K/uL (1.2-3.4); Monocytes # (manual) 0.68 K/uL (0.11-0.59); Monocytes % (manual) 6.1 %; Neutrophils % (manual) 77.4 %
[2019-04-29] MEDS: HYDROmorphone INJ 1 MG/ML SYRINGE IV PRN ×2 (08:44→20:19)
[2019-04-29] MEDS: PANTOprazole 40 MG TAB PO SCH (08:44)
[2019-04-29] MEDS: INSULIN GLARGINE SOLOSTAR 100 UNITS/ML 3 ML PEN SQ SCH (08:44)
[2019-04-29] MEDS: DOCUSATE SODIUM/SENNA 50/8.6MG TAB PO SCH ×2 (08:44→21:00)
[2019-04-29] MEDS: TIOTROPIUM BROMIDE 5 PUFF/90 MCG INH INH SCH (08:44)
[2019-04-29] MEDS: FINASTERIDE 5 MG TAB PO SCH (08:44)
[2019-04-29] MEDS: METOPROLOL SUCC 25MG EXT REL TAB PO SCH ×2 (08:44→20:59)
[2019-04-29] MEDS: INSULIN ASPART 100 UNITS/ML 3 ML PEN SC SCH ×4 (08:45→21:49)
[2019-04-29 08:49] LABS: BUN Creatinine Ratio 12.6 (10-20); Calcium 9.1 mg/dl (8.5-10.1); Creatinine Clr Calc Pharmacy 115.3 ml/min; Est GFR (African American) 67.8; Est GFR (Non-African American) 58.5; Potassium 3.5 mmol/L (3.5-5.1)
[2019-04-29 09:27] LABS: Partial Thromboplastin Ratio 2.6
[2019-04-29 09:29] LABS: Partial Thromboplastin Time 70.6 Seconds (21.0-31.0)
[2019-04-29] MEDS ORDERED: SOD PHOSPHATE/SOD BIPHOSPHATE ENEMA 132 ML BTL PR STA (12:43)
[2019-04-29] MEDS ORDERED: POLYETHYLENE (MIRALAX) 17 GM PACK PO STA (12:43)
--- NOTE | 2019-04-29 16:01 | Hospitalist Progress Note ---
Date of Service April 29, 2019 Assessment & Plan (1) Sepsis: Secondary to UTI due to chronic Lloyd catheter Management as below Clinically better and blood counts are improving Urology consulted for further management of Lloyd catheter to prevent recurrent infection Await urology evaluation and recommendation (2) UTI (urinary tract infection): This is a 48yo M with a PMH of chronic diastolic heart failure, history of PE on Coumadin, HTN, COPD, chronic pain with opioid dependence, mood disorder and recent ESBL UTI who presents with catheter malfunction beginning earlier today and was found to have sepsis in setting of urinary tract infection. -Meets sepsis criteria per CMS guidelines with fever of 38C, tachycardia at 130 and leukocytosis of 24K. Lactic within normal limits at 1.7 -Urinary symptoms and abnormal urinalysis in setting of chronic indwelling Lloyd, urinary retention and history of UTIs -Grew ESBL producing E. coli UTI a few months ago, treated with Invanz for 4-5 days -Started on Rocephin and imipenem in the ED. Also given 2 L NSS -Urine and blood cultures are positive for gram-negative bacilli, identification and sensitivity are pending -Blood cultures are positive for gram-negative bacilli, further identification and sensitivity pending -Urine culture grew E. coli resistant to fluoroquinolones -Clinically better we will continue intravenous ertapenem for now -Urine culture grew E. coli and the blood culture grew E. coli as well- pansensitive -We will discuss with ID for possible oral antibiotic on discharge -Repeat blood cultures have been ordered -Likely to go 1 oral antibiotic 1 Wednesday and discharge from the hospital (3) Chronic pain disorder: Continue MS Contin and MSIR If additional pain medications are needed we will consult pain therapist Complains to have increasing pain since admission Will ask for evaluation by pain therapist before giving any more narcotics Appreciate pain therapy input and recommendation Has been getting Dilaudid 1 mg twice daily as needed on top of current pain medication Not give any pain medications without the knowledge of pain therapist (4) Opioid dependence: Will not provide any extra Dilaudid may need to have pain therapy evaluation to provide increasing pain medications (5) MAHAMED (acute kidney injury): Likely secondary to dehydration and may be complicated by overuse of diuretics Will not provide any intravenous fluid and advised to drink more orally Hold diuretics including torsemide and Spironolactone We will monitor PRP-creatinine has been improving Creatinine has been improving We will restart diuretics in a day or 2 Renal function has been improving-creatinine has been improved to 1.4 on as of one 04/29 Hyponatremia Likely secondary to use of diuretics We will monitor sodium levels while in the hospital Sodium is 130 today (6) Chronic diastolic CHF (congestive heart failure): No evidence of failure at this time Diuretics are on hold No evidence of fluid overload for now Will start a small dose of oral diuretics after normalization of kidney function (7) HTN (hypertension): BP seems to be controlled (8) Pulmonary embolism: Has been on Coumadin Subtherapeutic at this time Continue heparin and Coumadin (9) Depression with anxiety: (10) COPD (chronic obstructive pulmonary disease): No exacerbation DVT prophylaxis Intravenous heparin and oral Coumadin until INR is therapeutic INR is 1.7 on 04/28 INR is therapeutic to more than 2 on 04/29. Heparin discontinued Subjective 04/26 The patient was seen and examined in medical floor Recently he was in [facility] from the hospital and then went home about 4 or 5 days before coming to the ER He was admitted with another attack of UTI and acute on chronic renal failure He has been feeling a little bit better since admission Complains to have nonspecific pain 04/27 Patient was seen and examined in medical floor He continues to complain pain which is worse at the back with radiation to the legs He has been on MS Contin, MSIR and Ultram for pain control He denies any chest pain and/or shortness of breath, any abdominal pain and no nausea or vomiting 04/28 The patient was seen and examined in medical floor He has been feeling a lot better but complains to have extreme weakness The pain seems to be under control Denies any significant symptoms 04/29 The patient was seen and examined in medical floor He has been out of bed on a chair He has complaints preseason nonmedical denies any significant symptoms except ongoing pain Review of Systems Review of Systems: All systems reviewed and are unremarkable except as noted below Constitutional: + fatigue and + weakness Gastrointestinal: + abdominal pain (Minimal right quadrant pain without any nausea and/or vomiting or distention of the abdomen) Genitourinary: + dysuria, + genital pain (Secondary to catheter placement) and + problem reported (Hypogastric pain) Musculoskeletal: Has back pain with radiation to the legs Physical Exam Physical Exam: No apparent distress at rest out of bed when a chair. Constitutional: well developed, well nourished, + ill appearing, + obese and comfortable; no acute distress Eyes: PERRL, conjunctivae normal, anicteric sclerae ENMT: external ear and nose normal, oropharynx normal Neck: trachea midline, no thyromegaly neck nontender Respiratory: normal respiratory effort and normal percussion; no respiratory distress and does not use accessory muscles Auscultation: + diminished lung sounds and + crackles Cardiovascular: Rate/Rhythm: regular rate and regular rhythm Heart Sounds: normal S1 and normal S2 Extremities: + pedal edema (1+ edema bilaterally- chronic in nature) Gastrointestinal (Abdomen): Inspection/Auscultation: + abdomen distended and normal bowel sounds Percussion/Palpation: + abdomen tender (Mild left flank) and abdomen soft; no abdominal mass Musculoskeletal: Spine: thoracic spine normal to inspection and lumbar spine normal to inspection; no cervical spinal tenderness Extremities: strength 5/5 throughout Skin: no rashes, warm and dry normal turgor; no lesions Neurologic: moves all extremities; no focal motor deficits Psychiatric: A+Ox3, euthymic affect Orientation: cooperative Lymphatic: no cervical or axillary lymphadenopathy no inguinal lymphadenopathy Results & Data Vital Signs (Past 12 Hours) Vital Signs Temp Pulse Pulse Pulse Resp BP BP 04/29/19 15:06 36.7 C 94 H 19 111/73 04/29/19 11:47 36.7 C 85 21 123/69 04/29/19 09:54 80 04/29/19 07:10 36.9 C 83 19 110/72 Pulse Ox 04/29/19 15:06 96 04/29/19 11:47 96 04/29/19 09:54 04/29/19 07:10 95 Laboratory Results Short CBC 04/29/19 Range/Units 08:08 WBC 11.11 H (4.8-10.8) K/uL Hgb 10.0 L (14.0-18.0) g/dL Hct 31.1 L (42-52) % Plt Count 221 (130-400) K/uL BMP 04/29/19 08:08 Sodium 135 L Potassium 3.5 Chloride 100 Carbon Dioxide 25 BUN 18 Creatinine 1.41 H Glucose 120 H Calcium 9.1 Medications Administered Current Inpatient Medications Acetaminophen (Tylenol) 325 mg PO Q6H PRN PRN Reason: Pain or Fever Stop: 05/25/19 22:27 Aspirin (Ecotrin Ectab) 81 mg PO [facility] Stop: 05/26/19 08:59 Last Admin: 04/29/19 08:43 Dose: 81 mg Documented by: Bisacodyl (Dulcolax) 10 mg PO DAILY PRN PRN Reason: Constipation Stop: 05/27/19 18:14 Last Admin: 04/27/19 19:47 Dose: 10 mg Documented by: Dextrose (Dextrose 50%) 25 - 50 ml IV UD PRN; Protocol PRN Reason: Hypoglycemia Protocol Stop: 05/25/19 22:27 Finasteride (Proscar) 5 mg PO [facility] Stop: 05/26/19 08:59 Last Admin: 04/29/19 08:44 Dose: 5 mg Documented by: Fluticasone Propionate (Flonase) 2 sprays NA [facility] Stop: 05/26/19 08:59 Last Admin: 04/29/19 08:43 Dose: 2 sprays Documented by: Gabapentin (Neurontin) 200 mg PO TID [facility] Stop: 05/26/19 08:59 Last Admin: 04/29/19 13:41 Dose: 200 mg Documented by: Glucagon (Glucagen) 1 mg SQ UD PRN; Protocol PRN Reason: Hypoglycemia Protocol Stop: 05/25/19 22:27 Glucose (Glucose 40%) 15 - 30 gm PO UD PRN; Protocol PRN Reason: Hypoglycemia Protocol Stop: 05/25/19 22:27 Glucose (Dex4 Glucose) 4 - 8 tabs PO UD PRN; Protocol PRN Reason: Hypoglycemia Protocol Stop: 05/25/19 22:27 Hydromorphone HCl (Dilaudid) 1 mg IV BID PRN PRN Reason: Pain Stop: 05/12/19 08:44 Last Admin: 04/29/19 08:44 Dose: 1 mg Documented by: Promethazine HCl 12.5 mg/ (Sodium Chloride) 50.5 mls @ 202 mls/hr IV Q6H PRN PRN Reason: Nausea And Vomiting Stop: 05/25/19 22:27 Last Infusion: 04/28/19 22:41 Dose: Infused Documented by: Acetaminophen (Ofirmev) 65 mls @ 200 mls/hr IV Q6H PRN PRN Reason: fever Stop: 05/26/19 05:14 Last Infusion: 04/28/19 00:47 Dose: Infused Documented by: Imipenem/Cilastatin Sodium 500 (mg/ Dextrose) 110 mls @ 108 mls/hr IV Q6H [facility]; Protocol Stop: 05/05/19 19:02 Last Infusion: 04/29/19 13:51 Dose: Infused Documented by: Insulin Aspart (Novolog Flexpen) 0 units SC ACHS [facility] Stop: 05/25/19 22:27 Last Admin: 04/29/19 12:46 Dose: 4 units Documented by: Insulin Glargine (Lantus Solostar Pen) 5 units SQ DAILY [facility] Stop: 05/26/19 08:59 Last Admin: 04/29/19 08:44 Dose: 5 units Documented by: Ipratropium [place] (Atrovent 0.02% 0.5mg/2.5ml) 0.5 mg INH Q4R PRN PRN Reason: SHORTNESS OF BREATH OR WHEEZIN Stop: 05/25/19 22:27 Isosorbide Dinitrate (Isordil) 10 mg PO DAILY@0700,1200 [facility] Stop: 05/26/19 06:59 Last Admin: 04/29/19 12:45 Dose: 10 mg Documented by: Levalbuterol HCl (Xopenex 1.25mg/0.5ml Neb) 1.25 mg INH Q4R PRN PRN Reason: SHORTNESS OF BREATH OR WHEEZIN Stop: 05/25/19 22:27 Lorazepam (Ativan) 1 mg PO TID PRN PRN Reason: Anxiety Stop: 05/25/19 22:27 Metoprolol Succinate (Toprol Xl) 25 mg PO BID [facility] Stop: 05/26/19 04:14 Last Admin: 04/29/19 08:44 Dose: 25 mg Documented by: Miscellaneous (Carbohydrates For Hypoglycemia) 15 - 30 gm PO UD PRN PRN Reason: Hypoglycemia Treatment Stop: 05/25/19 22:27 Miscellaneous (Remove Nicoderm Patch) 1 ea N/A HS [facility] Stop: 05/26/19 08:58 Last Admin: 04/28/19 21:25 Dose: Not Given Documented by: Miscellaneous Information (Consult) 1 ea N/A UD PRN PRN Reason: Consult Stop: 05/25/19 23:07 Morphine Sulfate (Ms Contin) 15 mg PO Q12 [facility] Stop: 05/10/19 20:59 Last Admin: 04/29/19 08:43 Dose: 15 mg Documented by: Nicotine (Nicoderm Cq) 21 mg TD QAM EMPERATRIZ Stop: 05/25/19 22:27 Last Admin: 04/29/19 08:43 Dose: 21 mg Documented by: Nitroglycerin (Nitrostat) 0.4 mg SL UD PRN PRN Reason: Chest Pain Stop: 05/25/19 22:27 Oxycodone HCl (Roxicodone Immediate Rel) 15 mg PO Q4H PRN PRN Reason: pain not relieved by tylenol Stop: 05/09/19 20:44 Last Admin: 04/29/19 15:05 Dose: 15 mg Documented by: Pantoprazole Sodium (Protonix) 40 mg PO QAM EMPERATRIZ Stop: 05/26/19 08:59 Last Admin: 04/29/19 08:44 Dose: 40 mg Documented by: Phenazopyridine HCl (Pyridium) 100 mg PO TID PRN PRN Reason: Bladder pain Stop: 05/26/19 10:37 Last Admin: 04/26/19 12:26 Dose: 100 mg Documented by: Polyethylene Glycol (Miralax Powder Packet) 17 gm PO DAILY [facility] Stop: 05/26/19 11:59 Last Admin: 04/29/19 08:43 Dose: 17 gm Documented by: Senna/Docusate Sodium (Senokot S) 1 tab PO BID [facility] Stop: 05/25/19 22:27 Last Admin: 04/29/19 08:44 Dose: 1 tab Documented by: Tamsulosin HCl (Flomax) 0.4 mg PO DAILY EMPERATRIZ Stop: 05/26/19 08:59 Last Admin: 04/29/19 08:43 Dose: 0.4 mg Documented by: Tiotropium [place] (Spiriva) 1 puffs INH DAILY [facility] Stop: 05/26/19 08:59 Last Admin: 04/29/19 08:44 Dose: 1 puffs Documented by: Warfarin Sodium (Coumadin) 7.5 mg PO DAILY@1600 [facility] Stop: 05/26/19 15:59 Last Admin: 04/28/19 17:53 Dose: 7.5 mg Documented by: (1) Sepsis Sepsis acute organ dysfunction status: unspecified Sepsis type: sepsis due to unspecified organism Qualified Code(s): A41.9 - Sepsis, unspecified organism (2) UTI (urinary tract infection) Hematuria presence: with hematuria Urinary tract infection type: site unspecified Qualified Code(s): N39.0 - Urinary tract infection, site not specified; R31.9 - Hematuria, unspecified (3) HTN (hypertension) Hypertension type: essential hypertension Qualified Code(s): I10 - Essential (primary) hypertension (4) Pulmonary embolism Pulmonary embolism type: unspecified Chronicity: chronic Acute cor pulmonale presence: without acute cor pulmonale Qualified Code(s): I27.82 - Chronic pulmonary embolism (5) COPD (chronic obstructive pulmonary disease) COPD type: emphysema Emphysema type: unspecified Qualified Code(s): J43.9 - Emphysema, unspecified
[2019-04-29] MEDS: WARFARIN SOD 7.5 MG TAB PO SCH (16:13)
[2019-04-29] MEDS ORDERED: HYDROmorphone INJ 1 MG/ML SYRINGE IV STA (21:49)
[2019-04-30] MEDS: IMIPENEM/CILASTATIN SODIUM 500 MG in DEXTROSE 5% 100 ML IV SCH ×4 (00:02→17:52)
[2019-04-30] MEDS: OXYCODONE HCL IR 5 MG TAB (IMMEDIATE RELEASE) PO PRN ×5 (03:13→22:26)
[2019-04-30] MEDS: ISOSORBIDE DINITRATE 10 MG TAB PO SCH ×2 (06:22→13:03)
[2019-04-30] MEDS: ASPIRIN 81 MG ECTAB PO SCH (08:46)
[2019-04-30] MEDS: GABAPENTIN 100 MG CAP PO SCH ×3 (08:47→20:26)
[2019-04-30] MEDS: POLYETHYLENE (MIRALAX) 17 GM PACK PO SCH (08:47)
[2019-04-30] MEDS: PANTOprazole 40 MG TAB PO SCH (08:47)
[2019-04-30] MEDS: FINASTERIDE 5 MG TAB PO SCH (08:47)
[2019-04-30] MEDS: MoRPHine SULFATE CR 15 MG TABCR PO SCH ×2 (08:47→21:35)
[2019-04-30] MEDS: TAMSULOSIN HCL 0.4 MG CAP PO SCH (08:47)
[2019-04-30] MEDS: TIOTROPIUM BROMIDE 5 PUFF/90 MCG INH INH SCH (08:47)
[2019-04-30] MEDS: FLUTICASONE PROPIONATE NA SPR 16 GM BTL SCH (08:47)
[2019-04-30] MEDS: NICOTINE 21 MG/24 HR TDSY TD SCH (08:47)
[2019-04-30] MEDS: DOCUSATE SODIUM/SENNA 50/8.6MG TAB PO SCH ×2 (08:47→20:25)
[2019-04-30] MEDS: INSULIN GLARGINE SOLOSTAR 100 UNITS/ML 3 ML PEN SQ SCH (08:47)
[2019-04-30] MEDS: INSULIN ASPART 100 UNITS/ML 3 ML PEN SC SCH ×4 (08:48→20:28)
[2019-04-30] MEDS: METOPROLOL SUCC 25MG EXT REL TAB PO SCH ×2 (08:48→20:25)
[2019-04-30] MEDS: HYDROmorphone INJ 1 MG/ML SYRINGE IV PRN ×2 (08:52→17:52)
[2019-04-30 10:14] LABS: Prothrombin Time 28.4 Seconds (9.0-12.0)
[2019-04-30 10:33] LABS: BUN Creatinine Ratio 12.7 (10-20); Calcium 9.1 mg/dl (8.5-10.1); Creatinine Clr Calc Pharmacy 136.6 ml/min; Est GFR (African American) 83.2; Est GFR (Non-African American) 71.8
--- NOTE | 2019-04-30 12:55 | Hospitalist Progress Note ---
Date of Service April 30, 2019 Assessment & Plan (1) Sepsis: Secondary to UTI due to chronic Lloyd catheter Management as below Clinically better and blood counts are improving Urology consulted for further management of Lloyd catheter to prevent recurrent infection Await urology evaluation and recommendation (2) UTI (urinary tract infection): This is a 48yo M with a PMH of chronic diastolic heart failure, history of PE on Coumadin, HTN, COPD, chronic pain with opioid dependence, mood disorder and recent ESBL UTI who presents with catheter malfunction beginning earlier today and was found to have sepsis in setting of urinary tract infection. -Meets sepsis criteria per CMS guidelines with fever of 38C, tachycardia at 130 and leukocytosis of 24K. Lactic within normal limits at 1.7 -Urinary symptoms and abnormal urinalysis in setting of chronic indwelling Lloyd, urinary retention and history of UTIs -Grew ESBL producing E. coli UTI a few months ago, treated with Invanz for 4-5 days -Started on Rocephin and imipenem in the ED. Also given 2 L NSS -Urine and blood cultures are positive for gram-negative bacilli, identification and sensitivity are pending -Blood cultures are positive for gram-negative bacilli, further identification and sensitivity pending -Urine culture grew E. coli resistant to fluoroquinolones -Clinically better we will continue intravenous ertapenem for now -Urine culture grew E. coli and the blood culture grew E. coli as well- pansensitive -We will discuss with ID for possible oral antibiotic on discharge -Repeat blood cultures have been ordered -Likely to go on oral antibiotic on Wednesday and discharge from the hospital -Denies any neurological symptoms -No fever no chills -Repeat blood culture has been pending (3) Chronic pain disorder: Continue MS Contin and MSIR If additional pain medications are needed we will consult pain therapist Complains to have increasing pain since admission Will ask for evaluation by pain therapist before giving any more narcotics Appreciate pain therapy input and recommendation Has been getting Dilaudid 1 mg twice daily as needed on top of current pain medication Not give any pain medications without the knowledge of pain therapist Pain seems to be under control (4) Opioid dependence: Will not provide any extra Dilaudid may need to have pain therapy evaluation to provide increasing pain medications (5) MAHAMED (acute kidney injury): Likely secondary to dehydration and may be complicated by overuse of d iuretics Will not provide any intravenous fluid and advised to drink more orally Hold diuretics including torsemide and Spironolactone We will monitor PRP-creatinine has been improving Creatinine has been improving We will restart diuretics in a day or 2 Renal function has been improving-creatinine has been improved to 1.4 on as of one 04/29 Kidney function has reverted to baseline We will restart his usual oral diuretics as an outpatient Hyponatremia Likely secondary to use of diuretics We will monitor sodium levels while in the hospital Sodium is 130 today (6) Chronic diastolic CHF (congestive heart failure): No evidence of failure at this time Diuretics are on hold No evidence of fluid overload for now Will start a small dose of oral diuretics after normalization of kidney function Retaining fluid Kidney function is normalized and will start his usual outpatient diuretics (7) HTN (hypertension): BP seems to be controlled (8) Pulmonary embolism: Has been on Coumadin Subtherapeutic at this time Continue heparin and Coumadin INR has been therapeutic and heparin discontinued one 04/29 (9) Depression with anxiety: (10) COPD (chronic obstructive pulmonary disease): No exacerbation DVT prophylaxis Intravenous heparin and oral Coumadin until INR is therapeutic INR is 1.7 on 04/28 INR is therapeutic to more than 2 on 04/29. Heparin discontinued Medically stable to be transferred to medical floor Continue physical therapy and current medications Likely discharge in a day or 2 Subjective 04/26 The patient was seen and examined in medical floor Recently he was in [facility] from the hospital and then went home about 4 or 5 days before coming to the ER He was admitted with another attack of UTI and acute on chronic renal failure He has been feeling a little bit better since admission Complains to have nonspecific pain 04/27 Patient was seen and examined in medical floor He continues to complain pain which is worse at the back with radiation to the legs He has been on MS Contin, MSIR and Ultram for pain control He denies any chest pain and/or shortness of breath, any abdominal pain and no nausea or vomiting 04/28 The patient was seen and examined in medical floor He has been feeling a lot better but complains to have extreme weakness The pain seems to be under control Denies any significant symptoms 04/29 The patient was seen and examined in medical floor He has been out of bed on a chair He has complaints preseason nonmedical denies any significant symptoms except ongoing pain 04/30 The patient was seen and examined in medical telemetry unit He has been feeling much better and denies any significant symptoms He will be transferred to medical floor for continuation of care Likely discharge in a day or 2 Review of Systems Review of Systems: All systems reviewed and are unremarkable except as noted below Constitutional: + weakness Gastrointestinal: + abdominal pain (Minimal right quadrant pain without any nausea and/or vomiting or distention of the abdomen) Genitourinary: + dysuria, + genital pain (Secondary to catheter placement) and + problem reported (Hypogastric pain) Musculoskeletal: + back pain (Is reasonably controlled with current medications) Physical Exam Physical Exam: No apparent distress at rest Constitutional: well developed, well nourished, + obese and comfortable; no acute distress Eyes: PERRL, conjunctivae normal, anicteric sclerae ENMT: external ear and nose normal, oropharynx normal Neck: trachea midline, no thyromegaly neck nontender Respiratory: normal respiratory effort and normal percussion; no respiratory distress and does not use accessory muscles Auscultation: + diminished lung sounds and + crackles Cardiovascular: Rate/Rhythm: regular rate and regular rhythm Heart Sounds: normal S1 and normal S2 Vessels: normal peripheral pulses; no JVD Extremities: + pedal edema (1+ edema bilaterally-chronic in nature and seems to be getting worse now) Gastrointestinal (Abdomen): Inspection/Auscultation: + abdomen distended and normal bowel sounds Percussion/Palpation: + abdomen tender (Mild left flank) and abdomen soft; no abdominal mass Musculoskeletal: Spine: thoracic spine normal to inspection and lumbar spine normal to inspection; no cervical spinal tenderness Extremities: strength 5/5 throughout Skin: no rashes, warm and dry normal turgor; no lesions Neurologic: moves all extremities; no focal motor deficits Generally weak Psychiatric: A+Ox3, euthymic affect Orientation: cooperative Lymphatic: no cervical or axillary lymphadenopathy no inguinal lymphadenopathy Results & Data Vital Signs (Past 12 Hours) Vital Signs Temp Pulse Pulse Resp BP Pulse Ox 04/30/19 09:00 79 04/30/19 04:23 37.0 C 78 20 113/73 99 Laboratory Results BMP 04/30/19 09:46 Sodium 140 Potassium 4.0 Chloride 104 Carbon Dioxide 29 BUN 15 Creatinine 1.19 Glucose 155 H Calcium 9.1 Medications Administered Current Inpatient Medications Acetaminophen (Tylenol) 325 mg PO Q6H PRN PRN Reason: Pain or Fever Stop: 05/25/19 22:27 Aspirin (Ecotrin Ectab) 81 mg PO [facility] Stop: 05/26/19 08:59 Last Admin: 04/30/19 08:46 Dose: 81 mg Documented by: Bisacodyl (Dulcolax) 10 mg PO DAILY PRN PRN Reason: Constipation Stop: 05/27/19 18:14 Last Admin: 04/27/19 19:47 Dose: 10 mg Documented by: Dextrose (Dextrose 50%) 25 - 50 ml IV UD PRN; Protocol PRN Reason: Hypoglycemia Protocol Stop: 05/25/19 22:27 Finasteride (Proscar) 5 mg PO [facility] Stop: 05/26/19 08:59 Last Admin: 04/30/19 08:47 Dose: 5 mg Documented by: Fluticasone Propionate (Flonase) 2 sprays NA [facility] Stop: 05/26/19 08:59 Last Admin: 04/30/19 08:47 Dose: 2 sprays Documented by: Gabapentin (Neurontin) 200 mg PO TID [facility] Stop: 05/26/19 08:59 Last Admin: 04/30/19 08:47 Dose: 200 mg Documented by: Glucagon (Glucagen) 1 mg SQ UD PRN; Protocol PRN Reason: Hypoglycemia Protocol Stop: 05/25/19 22:27 Glucose (Glucose 40%) 15 - 30 gm PO UD PRN; Protocol PRN Reason: Hypoglycemia Protocol Stop: 05/25/19 22:27 Glucose (Dex4 Glucose) 4 - 8 tabs PO UD PRN; Protocol PRN Reason: Hypoglycemia Protocol Stop: 05/25/19 22:27 Hydromorphone HCl (Dilaudid) 1 mg IV BID PRN PRN Reason: Pain Stop: 05/12/19 08:44 Last Admin: 04/30/19 08:52 Dose: 1 mg Documented by: Promethazine HCl 12.5 mg/ (Sodium Chloride) 50.5 mls @ 202 mls/hr IV Q6H PRN PRN Reason: Nausea And Vomiting Stop: 05/25/19 22:27 Last Infusion: 04/28/19 22:41 Dose: Infused Documented by: Acetaminophen (Ofirmev) 65 mls @ 200 mls/hr IV Q6H PRN PRN Reason: fever Stop: 05/26/19 05:14 Last Infusion: 04/28/19 00:47 Dose: Infused Documented by: Imipenem/Cilastatin Sodium 500 (mg/ Dextrose) 110 mls @ 108 mls/hr IV Q6H [facility]; Protocol Stop: 05/05/19 19:02 Last Infusion: 04/30/19 07:46 Dose: Infused Documented by: Insulin Aspart (Novolog Flexpen) 0 units SC ACHS [facility] Stop: 05/25/19 22:27 Last Admin: 04/30/19 08:48 Dose: 3 units Documented by: Insulin Glargine (Lantus Solostar Pen) 5 units SQ DAILY [facility] Stop: 05/26/19 08:59 Last Admin: 04/30/19 08:47 Dose: 5 units Documented by: Ipratropium [place] (Atrovent 0.02% 0.5mg/2.5ml) 0.5 mg INH Q4R PRN PRN Reason: SHORTNESS OF BREATH OR WHEEZIN Stop: 05/25/19 22:27 Isosorbide Dinitrate (Isordil) 10 mg PO DAILY@0700,1200 [facility] Stop: 05/26/19 06:59 Last Admin: 04/30/19 06:22 Dose: 10 mg Documented by: Levalbuterol HCl (Xopenex 1.25mg/0.5ml Neb) 1.25 mg INH Q4R PRN PRN Reason: SHORTNESS OF BREATH OR WHEEZIN Stop: 05/25/19 22:27 Lorazepam (Ativan) 1 mg PO TID PRN PRN Reason: Anxiety Stop: 05/25/19 22:27 Metoprolol Succinate (Toprol Xl) 25 mg PO BID [facility] Stop: 05/26/19 04:14 Last Admin: 04/30/19 08:48 Dose: 25 mg Documented by: Miscellaneous (Carbohydrates For Hypoglycemia) 15 - 30 gm PO UD PRN PRN Reason: Hypoglycemia Treatment Stop: 05/25/19 22:27 Miscellaneous (Remove Nicoderm Patch) 1 ea N/A HS [facility] Stop: 05/26/19 08:58 Last Admin: 04/29/19 21:00 Dose: Not Given Documented by: Miscellaneous Information (Consult) 1 ea N/A UD PRN PRN Reason: Consult Stop: 05/25/19 23:07 Morphine Sulfate (Ms Contin) 15 mg PO Q12 [facility] Stop: 05/10/19 20:59 Last Admin: 04/30/19 08:47 Dose: 15 mg Documented by: Nicotine (Nicoderm Cq) 21 mg TD QAM [facility] Stop: 05/25/19 22:27 Last Admin: 04/30/19 08:47 Dose: 21 mg Documented by: Nitroglycerin (Nitrostat) 0.4 mg SL UD PRN PRN Reason: Chest Pain Stop: 05/25/19 22:27 Oxycodone HCl (Roxicodone Immediate Rel) 15 mg PO Q4H PRN PRN Reason: pain not relieved by tylenol Stop: 05/09/19 20:44 Last Admin: 04/30/19 10:24 Dose: 15 mg Documented by: Pantoprazole Sodium (Protonix) 40 mg PO QAM [facility] Stop: 05/26/19 08:59 Last Admin: 04/30/19 08:47 Dose: 40 mg Documented by: Phenazopyridine HCl (Pyridium) 100 mg PO TID PRN PRN Reason: Bladder pain Stop: 05/26/19 10:37 Last Admin: 04/26/19 12:26 Dose: 100 mg Documented by: Polyethylene Glycol (Miralax Powder Packet) 17 gm PO DAILY [facility] Stop: 05/26/19 11:59 Last Admin: 04/30/19 08:47 Dose: 17 gm Documented by: Senna/Docusate Sodium (Senokot S) 1 tab PO BID [facility] Stop: 05/25/19 22:27 Last Admin: 04/30/19 08:47 Dose: 1 tab Documented by: Spironolactone (Aldactone) 50 mg PO BID [facility] Stop: 05/30/19 20:59 Tamsulosin HCl (Flomax) 0.4 mg PO DAILY [facility] Stop: 05/26/19 08:59 Last Admin: 04/30/19 08:47 Dose: 0.4 mg Documented by: Tiotropium [place] (Spiriva) 1 puffs INH DAILY [facility] Stop: 05/26/19 08:59 Last Admin: 04/30/19 08:47 Dose: 1 puffs Documented by: Torsemide (Demadex) 20 mg PO BID [facility] Stop: 05/30/19 20:59 Warfarin Sodium (Coumadin) 7.5 mg PO DAILY@1600 [facility] Stop: 05/26/19 15:59 Last Admin: 04/29/19 16:13 Dose: 7.5 mg Documented by: (1) Sepsis Sepsis acute organ dysfunction status: unspecified Sepsis type: sepsis due to unspecified organism Qualified Code(s): A41.9 - Sepsis, unspecified organism (2) UTI (urinary tract infection) Hematuria presence: with hematuria Urinary tract infection type: site unspecified Qualified Code(s): N39.0 - Urinary tract infection, site not specified; R31.9 - Hematuria, unspecified (3) HTN (hypertension) Hypertension type: essential hypertension Qualified Code(s): I10 - Essential (primary) hypertension (4) Pulmonary embolism Pulmonary embolism type: unspecified Chronicity: chronic Acute cor pulmonale presence: without acute cor pulmonale Qualified Code(s): I27.82 - Chronic pulmonary embolism (5) COPD (chronic obstructive pulmonary disease) COPD type: emphysema Emphysema type: unspecified Qualified Code(s): J43.9 - Emphysema, unspecified
[2019-04-30] MEDS: WARFARIN SOD 7.5 MG TAB PO SCH (17:43)
[2019-04-30] MEDS ORDERED: HYDROmorphone INJ 1 MG/ML SYRINGE IV STA (19:57)
[2019-04-30] MEDS: TORSEMIDE 10 MG TAB PO SCH (20:25)
[2019-04-30] MEDS: SPIRONOLACTONE 25 MG TAB PO SCH (20:26)
[2019-05-01] MEDS: IMIPENEM/CILASTATIN SODIUM 500 MG in DEXTROSE 5% 100 ML IV SCH ×3 (00:18→13:14)
[2019-05-01] MEDS: OXYCODONE HCL IR 5 MG TAB (IMMEDIATE RELEASE) PO PRN ×4 (05:25→19:58)
[2019-05-01] MEDS: HYDROmorphone INJ 1 MG/ML SYRINGE IV PRN ×2 (06:11→18:16)
[2019-05-01] MEDS: ISOSORBIDE DINITRATE 10 MG TAB PO SCH ×2 (06:16→12:59)
[2019-05-01 06:45] LABS: Hematocrit (blood only) 31.8 % (42-52); Mean Corpuscular Hgb Conc 31.4 g/dL (32-36); Mean Corpuscular Volume 73.8 fL (80-100); Mean Platelet Volume 10.3 fL (7.4-10.4); Platelet Count 364 K/uL (130-400); RDW Coefficient of Variation 19.5 % (11.5-14.5); RDW Standard Deviation 52.1 fL (36.4-46.3); Red Blood Count 4.31 M/uL (4.7-6.1); White Blood Count 13.82 K/uL (4.8-10.8)
[2019-05-01 06:53] LABS: INR 3.1 (0.9-1.1); Prothrombin Time 29.4 Seconds (9.0-12.0)
[2019-05-01 07:10] LABS: BUN Creatinine Ratio 10.8 (10-20); Calcium 8.9 mg/dl (8.5-10.1); Creatinine Clr Calc Pharmacy 123.1 ml/min; Est GFR (African American) 73.4; Est GFR (Non-African American) 63.3; Magnesium 1.7 mg/dl (1.8-2.4)
[2019-05-01 07:14] LABS: Basophils # (auto) 0.05 K/uL (0-0.2); Basophils % (auto) 0.4 %; Eosinophils # (auto) 0.43 K/uL (0-0.5); Eosinophils % (auto) 3.1 %; Immature Granulocytes % (auto) 3.6 %; Lymphocytes # (auto) 2.71 K/uL (1.2-3.4); Lymphocytes % (auto) 19.6 %; Monocytes # (auto) 0.88 K/uL (0.11-0.59); Monocytes % (auto) 6.4 %; Neutrophils # (auto) 9.25 K/uL (1.4-6.5); Neutrophils % (auto) 66.9 %
[2019-05-01] MEDS: DOCUSATE SODIUM/SENNA 50/8.6MG TAB PO SCH ×2 (08:23→20:54)
[2019-05-01] MEDS: PANTOprazole 40 MG TAB PO SCH (08:23)
[2019-05-01] MEDS: MoRPHine SULFATE CR 15 MG TABCR PO SCH ×2 (08:23→20:52)
[2019-05-01] MEDS: TORSEMIDE 10 MG TAB PO SCH ×2 (08:24→20:52)
[2019-05-01] MEDS: SPIRONOLACTONE 25 MG TAB PO SCH ×2 (08:25→20:55)
[2019-05-01] MEDS: METOPROLOL SUCC 25MG EXT REL TAB PO SCH ×2 (08:25→20:58)
[2019-05-01] MEDS: ASPIRIN 81 MG ECTAB PO SCH (08:25)
[2019-05-01] MEDS: TAMSULOSIN HCL 0.4 MG CAP PO SCH (08:25)
[2019-05-01] MEDS: FINASTERIDE 5 MG TAB PO SCH (08:25)
[2019-05-01] MEDS: GABAPENTIN 100 MG CAP PO SCH ×3 (08:25→20:53)
[2019-05-01] MEDS: FLUTICASONE PROPIONATE NA SPR 16 GM BTL SCH (08:26)
[2019-05-01] MEDS: INSULIN GLARGINE SOLOSTAR 100 UNITS/ML 3 ML PEN SQ SCH (08:27)
[2019-05-01] MEDS: INSULIN ASPART 100 UNITS/ML 3 ML PEN SC SCH ×4 (08:32→20:58)
[2019-05-01] MEDS: NICOTINE 21 MG/24 HR TDSY TD SCH (08:34)
[2019-05-01] MEDS: POLYETHYLENE (MIRALAX) 17 GM PACK PO SCH (08:36)
--- NOTE | 2019-05-01 08:48 | Communication Note ---
Date of Service: May 01, 2019 Pt will be evaluated by our service as an outpatient. Follow-up has been scheduled for 05/17 at 4:30PM with Dr. Oconnell, at [address] [place] [address]. Primary service has been made aware and agreeable to this plan of care. Acute consultation to be cancelled. Thank you.
[2019-05-01] MEDS: TIOTROPIUM BROMIDE 5 PUFF/90 MCG INH INH SCH (10:50)
--- NOTE | 2019-05-01 11:34 | Infectious Disease Progress Nt ---
Date of Service May 01, 2019 Assessment & Plan (1) Gram negative septicemia: Patient with gram-negative sepsis with likely left pyelonephritis in the setting of chronic indwelling Lloyd catheter with recent difficulty with catheter changes. Will change to ertapenem as once daily dosing. would prefer to continue with IV abx as likely pyelo as well. Po alternative would be keflex. will need 14 days total abx. (2) Pyelonephritis of left kidney: (3) Indwelling Lloyd catheter present: Subjective pt afebrile. remains on Imipenem, tolerating well. wbc improved to 13. 8/ 10 blood cultures remain negative, initial blood and urine culture grew E. coli, resistant to quinolone. creat 1.3 Results & Data Vital Signs (Past 12 Hours) Vital Signs Temp Pulse Resp BP Pulse Ox 05/01/19 07:07 37.1 C 84 18 103/66 92 Laboratory Results Microbiology 04/29/19 12:59 Blood Aerobic Blood Culture - Preliminary No growth in Aerobic bottle after 24 hours. 04/29/19 12:59 Blood Anaerobic Blood Culture - Preliminary No growth in Anaerobic bottle after 24 hours. 04/29/19 13:13 Blood Aerobic Blood Culture - Preliminary No growth in Aerobic bottle after 24 hours. 04/29/19 13:13 Blood Anaerobic Blood Culture - Preliminary No growth in Anaerobic bottle after 24 hours. 04/25/19 19:46 Blood Aerobic Blood Culture - Final Escherichia coli 04/25/19 19:46 Blood Anaerobic Blood Culture - Final Escherichia coli 04/25/19 19:46 Blood Aerobic Blood Culture - Final Escherichia coli 04/25/19 19:46 Blood Anaerobic Blood Culture - Final Escherichia coli 04/25/19 19:50 Urine,Straight Cath Urine Culture - Final Escherichia coli PG Care Time/CCT Total # of Minutes Spent Total Time Spent with Patient: Total time spent is greater than 50% in coordination of care (as documented) at patient's floor/unit and/or counseling patient:
[2019-05-01] MEDS ORDERED: HYDROmorphone INJ 1 MG/ML SYRINGE IV STA (12:20)
[2019-05-01] MEDS: ERTAPENEM SODIUM 1,000 MG in SODIUM CHLORIDE 0.9% 50 ML IV SCH (12:59)
[2019-05-01] MEDS: WARFARIN SOD 7.5 MG TAB PO SCH (15:39)
--- NOTE | 2019-05-01 16:02 | Hospitalist Progress Note ---
Date of Service May 01, 2019 Assessment & Plan (1) Sepsis: Secondary to UTI due to chronic Lloyd catheter Management as below Clinically better and blood counts are improving Urology consulted for further management of Lloyd catheter to prevent recurrent infection Await urology evaluation and recommendation Discussed with urology-he is going to have an outpatient evaluation as distended Will cancel the consult (2) UTI (urinary tract infection): This is a 48yo M with a PMH of chronic diastolic heart failure, history of PE on Coumadin, HTN, COPD, chronic pain with opioid dependence, mood disorder and recent ESBL UTI who presents with catheter malfunction beginning earlier today and was found to have sepsis in setting of urinary tract infection. -Meets sepsis criteria per CMS guidelines with fever of 38C, tachycardia at 130 and leukocytosis of 24K. Lactic within normal limits at 1.7 -Urinary symptoms and abnormal urinalysis in setting of chronic indwelling Lloyd, urinary retention and history of UTIs -Grew ESBL producing E. coli UTI a few months ago, treated with Invanz for 4-5 days -Started on Rocephin and imipenem in the ED. Also given 2 L NSS -Urine and blood cultures are positive for gram-negative bacilli, identification and sensitivity are pending -Blood cultures are positive for gram-negative bacilli, further identification and sensitivity pending -Urine culture grew E. coli resistant to fluoroquinolones -Clinically better we will continue intravenous ertapenem for now -Urine culture grew E. coli and the blood culture grew E. coli as well- pansensitive -We will discuss with ID for possible oral antibiotic on discharge -Repeat blood cultures have been ordered -Likely to go on oral antibiotic on Wednesday and discharge from the hospital -Denies any neurological symptoms -No fever no chills -Repeat blood cultures have been negative -Can be discharged on oral Keflex for 14 days in total (3) Chronic pain disorder: Continue MS Contin and MSIR If additional pain medications are needed we will consult pain therapist Complains to have increasing pain since admission Will ask for evaluation by pain therapist before giving any more narcotics Appreciate pain therapy input and recommendation Has been getting Dilaudid 1 mg twice daily as needed on top of current pain medication Not give any pain medications without the knowledge of pain therapist Pain seems to be under control Complaint severe pain this afternoon-received additional dose of Dilaudid 1 mg IV Likely be discharged tomorrow (4) Opioid dependence: Will not provide any extra Dilaudid may need to have pain therapy evaluation to provide increasing pain medications (5) MAHAMED (acute kidney injury): Likely secondary to dehydration and may be complicated by overuse of diuretics Will not provide any intravenous fluid and advised to drink more orally Hold diuretics including torsemide and Spironolactone We will monitor PRP-creatinine has been improving Creatinine has been improving We will restart diuretics in a day or 2 Renal function has been improving-creatinine has been improved to 1.4 on as of one 04/29 Kidney function has reverted to baseline We will restart his usual oral diuretics as an outpatient Creatinine kidney function remains stable Hyponatremia Likely secondary to use of diuretics We will monitor sodium levels while in the hospital Sodium is 130 today (6) Chronic diastolic CHF (congestive heart failure): No evidence of failure at this time Diuretics are on hold No evidence of fluid overload for now Will start a small dose of oral diuretics after normalization of kidney function Retaining fluid Kidney function is normalized and will start his usual outpatient diuretics Has been tolerating oral diuretics (7) HTN (hypertension): BP seems to be controlled (8) Pulmonary embolism: Has been on Coumadin Subtherapeutic at this time Continue heparin and Coumadin INR has been therapeutic and heparin discontinued one 04/29 INR is therapeutic (9) Depression with anxiety: (10) COPD (chronic obstructive pulmonary disease): No exacerbation DVT prophylaxis Intravenous heparin and oral Coumadin until INR is therapeutic INR is 1.7 on 04/28 INR is therapeutic to more than 2 on 04/29. Heparin discontinued Medically stable to be transferred to medical floor Continue physical therapy and current medications Likely discharge tomorrow Subjective 04/26 The patient was seen and examined in medical floor Recently he was in [facility] from the hospital and then went home about 4 or 5 days before coming to the ER He was admitted with another attack of UTI and acute on chronic renal failure He has been feeling a little bit better since admission Complains to have nonspecific pain 04/27 Patient was seen and examined in medical floor He continues to complain pain which is worse at the back with radiation to the legs He has been on MS Contin, MSIR and Ultram for pain control He denies any chest pain and/or shortness of breath, any abdominal pain and no nausea or vomiting 04/28 The patient was seen and examined in medical floor He has been feeling a lot better but complains to have extreme weakness The pain seems to be under control Denies any significant symptoms 04/29 The patient was seen and examined in medical floor He has been out of bed on a chair He has complaints preseason nonmedical denies any significant symptoms except ongoing pain 04/30 The patient was seen and examined in medical telemetry unit He has been feeling much better and denies any significant symptoms He will be transferred to medical floor for continuation of care Likely discharge in a day or 2 05/01 The patient was seen and examined in medical floor With complaints to have severe pain at the back today otherwise denies any other symptoms He has been feeling better otherwise Review of Systems Review of Systems: All systems reviewed and are unremarkable except as noted below Gastrointestinal: Bowel movement Genitourinary: + dysuria, + genital pain (Secondary to catheter placement) and + problem reported (Hypogastric pain) Musculoskeletal: + back pain (Is reasonably controlled with current medications) Physical Exam Physical Exam: Lying in bed with some pain at the back Constitutional: well developed, well nourished, + obese and comfortable; no acute distress Eyes: PERRL, conjunctivae normal, anicteric sclerae ENMT: external ear and nose normal, oropharynx normal Neck: trachea midline, no thyromegaly neck nontender Respiratory: normal respiratory effort and normal percussion; no respiratory distress and does not use accessory muscles Auscultation: + diminished lung sounds and + crackles Cardiovascular: Rate/Rhythm: regular rate and regular rhythm Heart Sounds: normal S1 and normal S2 Vessels: normal peripheral pulses; no JVD Extremities: + pedal edema (1+ edema bilaterally-chronic in nature and seems to be getting worse now) Gastrointestinal (Abdomen): Inspection/Auscultation: + abdomen distended and normal bowel sounds Percussion/Palpation: + abdomen tender (Mild left flank) and abdomen soft; no abdominal mass Musculoskeletal: Spine: thoracic spine normal to inspection and lumbar spine normal to inspection; no cervical spinal tenderness Extremities: strength 5/5 throughout Skin: no rashes, warm and dry normal turgor; no lesions Neurologic: moves all extremities; no focal motor deficits Psychiatric: A+Ox3, euthymic affect Orientation: cooperative Lymphatic: no cervical or axillary lymphadenopathy no inguinal lymphadenopathy Results & Data Vital Signs (Past 12 Hours) Vital Signs Temp Pulse Resp BP Pulse Ox 05/01/19 14:57 36.6 C 95 H 18 133/69 97 05/01/19 07:07 37.1 C 84 18 103/66 92 Laboratory Results Short CBC 05/01/19 Range/Units 05:58 WBC 13.82 H (4.8-10.8) K/uL Hgb 10.0 L (14.0-18.0) g/dL Hct 31.8 L (42-52) % Plt Count 364 D (130-400) K/uL BMP 05/01/19 05:58 Sodium 140 Potassium 4.0 Chloride 103 Carbon Dioxide 29 BUN 14 Creatinine 1.32 Glucose 113 H Calcium 8.9 Medications Administered Current Inpatient Medications Acetaminophen (Tylenol) 325 mg PO Q6H PRN PRN Reason: Pain or Fever Stop: 05/25/19 22:27 Aspirin (Ecotrin Ectab) 81 mg PO [facility] Stop: 05/26/19 08:59 Last Admin: 05/01/19 08:25 Dose: 81 mg Documented by: Bisacodyl (Dulcolax) 10 mg PO DAILY PRN PRN Reason: Constipation Stop: 05/27/19 18:14 Last Admin: 04/27/19 19:47 Dose: 10 mg Documented by: Dextrose (Dextrose 50%) 25 - 50 ml IV UD PRN; Protocol PRN Reason: Hypoglycemia Protocol Stop: 05/25/19 22:27 Finasteride (Proscar) 5 mg PO [facility] Stop: 05/26/19 08:59 Last Admin: 05/01/19 08:25 Dose: 5 mg Documented by: Fluticasone Propionate (Flonase) 2 sprays NA [facility] Stop: 05/26/19 08:59 Last Admin: 05/01/19 08:26 Dose: 2 sprays Documented by: Gabapentin (Neurontin) 200 mg PO TID [facility] Stop: 05/26/19 08:59 Last Admin: 05/01/19 13:02 Dose: 200 mg Documented by: Glucagon (Glucagen) 1 mg SQ UD PRN; Protocol PRN Reason: Hypoglycemia Protocol Stop: 05/25/19 22:27 Glucose (Glucose 40%) 15 - 30 gm PO UD PRN; Protocol PRN Reason: Hypoglycemia Protocol Stop: 05/25/19 22:27 Glucose (Dex4 Glucose) 4 - 8 tabs PO UD PRN; Protocol PRN Reason: Hypoglycemia Protocol Stop: 05/25/19 22:27 Hydromorphone HCl (Dilaudid) 1 mg IV BID PRN PRN Reason: Pain Stop: 05/12/19 08:44 Last Admin: 05/01/19 06:11 Dose: 1 mg Documented by: Promethazine HCl 12.5 mg/ (Sodium Chloride) 50.5 mls @ 202 mls/hr IV Q6H PRN PRN Reason: Nausea And Vomiting Stop: 05/25/19 22:27 Last Infusion: 04/28/19 22:41 Dose: Infused Documented by: Acetaminophen (Ofirmev) 65 mls @ 200 mls/hr IV Q6H PRN PRN Reason: fever Stop: 05/26/19 05:14 Last Infusion: 04/28/19 00:47 Dose: Infused Documented by: Ertapenem 1,000 mg/ Sodium (Chloride) 60 mls @ 100 mls/hr IV Q24H [facility] Stop: 05/15/19 11:59 Last Infusion: 05/01/19 13:42 Dose: Infused Documented by: Insulin Aspart (Novolog Flexpen) 0 units SC ACHS [facility] Stop: 05/25/19 22:27 Last Admin: 05/01/19 13:01 Dose: 5 units Documented by: Insulin Glargine (Lantus Solostar Pen) 5 units SQ DAILY [facility] Stop: 05/26/19 08:59 Last Admin: 05/01/19 08:27 Dose: 5 units Documented by: Ipratropium [place] (Atrovent 0.02% 0.5mg/2.5ml) 0.5 mg INH Q4R PRN PRN Reason: SHORTNESS OF BREATH OR WHEEZIN Stop: 05/25/19 22:27 Isosorbide Dinitrate (Isordil) 10 mg PO DAILY@0700,1200 [facility] Stop: 05/26/19 06:59 Last Admin: 05/01/19 12:59 Dose: 10 mg Documented by: Levalbuterol HCl (Xopenex 1.25mg/0.5ml Neb) 1.25 mg INH Q4R PRN PRN Reason: SHORTNESS OF BREATH OR WHEEZIN Stop: 05/25/19 22:27 Lorazepam (Ativan) 1 mg PO TID PRN PRN Reason: Anxiety Stop: 05/25/19 22:27 Metoprolol Succinate (Toprol Xl) 25 mg PO BID [facility] Stop: 05/26/19 04:14 Last Admin: 05/01/19 08:25 Dose: 25 mg Documented by: Miscellaneous (Carbohydrates For Hypoglycemia) 15 - 30 gm PO UD PRN PRN Reason: Hypoglycemia Treatment Stop: 05/25/19 22:27 Miscellaneous (Remove Nicoderm Patch) 1 ea N/A HS [facility] Stop: 05/26/19 08:58 Last Admin: 04/30/19 20:28 Dose: Not Given Documented by: Morphine Sulfate (Ms Contin) 15 mg PO Q12 [facility] Stop: 05/10/19 20:59 Last Admin: 05/01/19 08:23 Dose: 15 mg Documented by: Nicotine (Nicoderm Cq) 21 mg TD QAM [facility] Stop: 05/25/19 22:27 Last Admin: 05/01/19 08:34 Dose: 21 mg Documented by: Nitroglycerin (Nitrostat) 0.4 mg SL UD PRN PRN Reason: Chest Pain Stop: 05/25/19 22:27 Oxycodone HCl (Roxicodone Immediate Rel) 15 mg PO Q4H PRN PRN Reason: pain not relieved by tylenol Stop: 05/09/19 20:44 Last Admin: 05/01/19 15:38 Dose: 15 mg Documented by: Pantoprazole Sodium (Protonix) 40 mg PO QAM [facility] Stop: 05/26/19 08:59 Last Admin: 05/01/19 08:23 Dose: 40 mg Documented by: Phenazopyridine HCl (Pyridium) 100 mg PO TID PRN PRN Reason: Bladder pain Stop: 05/26/19 10:37 Last Admin: 04/26/19 12:26 Dose: 100 mg Documented by: Polyethylene Glycol (Miralax Powder Packet) 17 gm PO DAILY [facility] Stop: 05/26/19 11:59 Last Admin: 05/01/19 08:36 Dose: 17 gm Documented by: Senna/Docusate Sodium (Senokot S) 1 tab PO BID [facility] Stop: 05/25/19 22:27 Last Admin: 05/01/19 08:23 Dose: 1 tab Documented by: Spironolactone (Aldactone) 50 mg PO BID [facility] Stop: 05/30/19 20:59 Last Admin: 05/01/19 08:25 Dose: 50 mg Documented by: Tamsulosin HCl (Flomax) 0.4 mg PO DAILY [facility] Stop: 05/26/19 08:59 Last Admin: 05/01/19 08:25 Dose: 0.4 mg Documented by: Tiotropium [place] (Spiriva) 1 puffs INH DAILY [facility] Stop: 05/26/19 08:59 Last Admin: 05/01/19 10:50 Dose: 1 puffs Documented by: Torsemide (Demadex) 20 mg PO BID [facility] Stop: 05/30/19 20:59 Last Admin: 05/01/19 08:24 Dose: 20 mg Documented by: Warfarin Sodium (Coumadin) 7.5 mg PO DAILY@1600 [facility] Stop: 05/26/19 15:59 Last Admin: 05/01/19 15:39 Dose: 7.5 mg Documented by: (1) Sepsis Sepsis acute organ dysfunction status: unspecified Sepsis type: sepsis due to unspecified organism Qualified Code(s): A41.9 - Sepsis, unspecified organism (2) UTI (urinary tract infection) Hematuria presence: with hematuria Urinary tract infection type: site unspecified Qualified Code(s): N39.0 - Urinary tract infection, site not specified; R31.9 - Hematuria, unspecified (3) HTN (hypertension) Hypertension type: essential hypertension Qualified Code(s): I10 - Essential (primary) hypertension (4) Pulmonary embolism Pulmonary embolism type: unspecified Chronicity: chronic Acute cor pulmonale presence: without acute cor pulmonale Qualified Code(s): I27.82 - Chronic pulmonary embolism (5) COPD (chronic obstructive pulmonary disease) COPD type: emphysema Emphysema type: unspecified Qualified Code(s): J43.9 - Emphysema, unspecified
[2019-05-01] MEDS: PROMETHAZINE HCL 12.5 MG in SODIUM CHLORIDE 0.9% 50 ML IV PRN (20:52)
[2019-05-02] MEDS: OXYCODONE HCL IR 5 MG TAB (IMMEDIATE RELEASE) PO PRN ×5 (00:28→19:28)
[2019-05-02] MEDS: HYDROmorphone INJ 1 MG/ML SYRINGE IV PRN ×2 (06:21→18:27)
[2019-05-02 06:23] LABS: Basophils # (auto) 0.04 K/uL (0-0.2); Basophils % (auto) 0.3 %; Eosinophils # (auto) 0.33 K/uL (0-0.5); Eosinophils % (auto) 2.1 %; Hematocrit (blood only) 31.7 % (42-52); Hemoglobin 10.1 g/dL (14.0-18.0); Immature Granulocytes % (auto) 3.9 %; Lymphocytes # (auto) 2.41 K/uL (1.2-3.4); Lymphocytes % (auto) 15.6 %; Mean Corpuscular Hgb Conc 31.9 g/dL (32-36); Mean Corpuscular Volume 72.5 fL (80-100); Mean Platelet Volume 9.8 fL (7.4-10.4); Monocytes # (auto) 0.67 K/uL (0.11-0.59); Monocytes % (auto) 4.3 %; Neutrophils # (auto) 11.41 K/uL (1.4-6.5); Neutrophils % (auto) 73.8 %; Platelet Count 446 K/uL (130-400); RDW Coefficient of Variation 19.4 % (11.5-14.5); RDW Standard Deviation 51.1 fL (36.4-46.3); Red Blood Count 4.37 M/uL (4.7-6.1); White Blood Count 15.46 K/uL (4.8-10.8)
[2019-05-02] MEDS: ISOSORBIDE DINITRATE 10 MG TAB PO SCH ×2 (06:26→12:16)
[2019-05-02 06:43] LABS: Prothrombin Time 37.1 Seconds (9.0-12.0)
[2019-05-02 06:51] LABS: Potassium 3.8 mmol/L (3.5-5.1)
[2019-05-02 06:52] LABS: BUN Creatinine Ratio 13.6 (10-20); Calcium 8.6 mg/dl (8.5-10.1); Creatinine Clr Calc Pharmacy 117.8 ml/min; Est GFR (African American) 69.6; Magnesium 1.4 mg/dl (1.8-2.4)
[2019-05-02] MEDS: TIOTROPIUM BROMIDE 5 PUFF/90 MCG INH INH SCH (08:44)
[2019-05-02] MEDS: FINASTERIDE 5 MG TAB PO SCH (08:45)
[2019-05-02] MEDS: POLYETHYLENE (MIRALAX) 17 GM PACK PO SCH (08:45)
[2019-05-02] MEDS: PANTOprazole 40 MG TAB PO SCH (08:46)
[2019-05-02] MEDS: ASPIRIN 81 MG ECTAB PO SCH (08:46)
[2019-05-02] MEDS: NICOTINE 21 MG/24 HR TDSY TD SCH (08:46)
[2019-05-02] MEDS: GABAPENTIN 100 MG CAP PO SCH ×3 (08:46→20:46)
[2019-05-02] MEDS: METOPROLOL SUCC 25MG EXT REL TAB PO SCH ×3 (08:46→20:48)
[2019-05-02] MEDS: TAMSULOSIN HCL 0.4 MG CAP PO SCH (08:47)
[2019-05-02] MEDS: TORSEMIDE 10 MG TAB PO SCH ×2 (08:47→20:47)
[2019-05-02] MEDS: FLUTICASONE PROPIONATE NA SPR 16 GM BTL SCH (08:47)
[2019-05-02] MEDS: SPIRONOLACTONE 25 MG TAB PO SCH ×2 (08:47→20:47)
[2019-05-02] MEDS: DOCUSATE SODIUM/SENNA 50/8.6MG TAB PO SCH ×2 (08:47→20:46)
[2019-05-02] MEDS: INSULIN GLARGINE SOLOSTAR 100 UNITS/ML 3 ML PEN SQ SCH (08:48)
[2019-05-02] MEDS: INSULIN ASPART 100 UNITS/ML 3 ML PEN SC SCH ×4 (08:50→20:44)
[2019-05-02] MEDS: MoRPHine SULFATE CR 15 MG TABCR PO SCH ×2 (08:53→20:45)
[2019-05-02] MEDS ORDERED: MAGNESIUM SULFATE / D5W 1 GM/100 ML BAG IV ONE (09:30)
[2019-05-02] MEDS: MAGNESIUM OXIDE 400 MG TAB PO SCH ×2 (10:19→20:47)
[2019-05-02] MEDS: ERTAPENEM SODIUM 1,000 MG in SODIUM CHLORIDE 0.9% 50 ML IV SCH (11:29)
[2019-05-02] MEDS ORDERED: HYDROmorphone INJ 1 MG/ML SYRINGE IV STA (11:50)
--- NOTE | 2019-05-02 13:08 | Hospitalist Progress Note ---
Date of Service May 02, 2019 Assessment & Plan (1) Chest pain: Complaining of chest pain since this morning On and off precordial without any chest compression or shortness of breath No radiation, no other associated symptoms EKG-no significant change Received small dose of Dilaudid and will give Ativan as the pain is continue Troponin has been ordered If negative will be discharged home this afternoon (2) Sepsis: Secondary to UTI due to chronic Lloyd catheter Management as below Clinically better and blood counts are improving Urology consulted for further management of Lloyd catheter to prevent recurrent infection Await urology evaluation and recommendation Discussed with urology-he is going to have an outpatient evaluation as distended Will cancel the consult (3) UTI (urinary tract infection): This is a 48yo M with a PMH of chronic diastolic heart failure, history of PE on Coumadin, HTN, COPD, chronic pain with opioid dependence, mood disorder and recent ESBL UTI who presents with catheter malfunction beginning earlier today and was found to have sepsis in setting of urinary tract infection. -Meets sepsis criteria per CMS guidelines with fever of 38C, tachycardia at 130 and leukocytosis of 24K. Lactic within normal limits at 1.7 -Urinary symptoms and abnormal urinalysis in setting of chronic indwelling Lloyd, urinary retention and history of UTIs -Grew ESBL producing E. coli UTI a few months ago, treated with Invanz for 4-5 days -Started on Rocephin and imipenem in the ED. Also given 2 L NSS -Urine and blood cultures are positive for gram-negative bacilli, identification and sensitivity are pending -Blood cultures are positive for gram-negative bacilli, further identification and sensitivity pending -Urine culture grew E. coli resistant to fluoroquinolones -Clinically better we will continue intravenous ertapenem for now -Urine culture grew E. coli and the blood culture grew E. coli as well- pansensitive -We will discuss with ID for possible oral antibiotic on discharge -Repeat blood cultures have been ordered -Likely to go on oral antibiotic on Wednesday and discharge from the hospital -Denies any neurological symptoms -No fever no chills -Repeat blood cultures have been negative -Can be discharged on oral Keflex for 14 days in total -No more urinary symptoms (4) Chronic pain disorder: Continue MS Contin and MSIR If additional pain medications are needed we will consult pain therapist Complains to have increasing pain since admission Will ask for evaluation by pain therapist before giving any more narcotics Appreciate pain therapy input and recommendation Has been getting Dilaudid 1 mg twice daily as needed on top of current pain medication Not give any pain medications without the knowledge of pain therapist Pain seems to be under control Complaint severe pain this afternoon-received additional dose of Dilaudid 1 mg IV Likely be discharged tomorrow (5) Opioid dependence: Will not provide any extra Dilaudid may need to have pain therapy evaluation to provide increasing pain medications (6) MAHAMED (acute kidney injury): Likely secondary to dehydration and may be complicated by overuse of diuretics Will not provide any intravenous fluid and advised to drink more orally Hold diuretics including torsemide and Spironolactone We will monitor PRP-creatinine has been improving Creatinine has been improving We will restart diuretics in a day or 2 Renal function has been improving-creatinine has been improved to 1.4 on as of one 04/29 Kidney function has reverted to baseline We will restart his usual oral diuretics as an outpatient Creatinine kidney function remains stable Kidney function has been normal with oral diuretics Hyponatremia Likely secondary to use of diuretics We will monitor sodium levels while in the hospital Sodium is 130 today (7) Chronic diastolic CHF (congestive heart failure): No evidence of failure at this time Diuretics are on hold No evidence of fluid overload for now Will start a small dose of oral diuretics after normalization of kidney function Retaining fluid Kidney function is normalized and will start his usual outpatient diuretics Has been tolerating oral diuretics No signs of fluid overload (8) HTN (hypertension): BP seems to be controlled (9) Pulmonary embolism: Has been on Coumadin Subtherapeutic at this time Continue heparin and Coumadin INR has been therapeutic and heparin discontinued one 04/29 INR is therapeutic INR is 4.0 today, we will hold it for today (10) Depression with anxiety: (11) COPD (chronic obstructive pulmonary disease): No exacerbation DVT prophylaxis Intravenous heparin and oral Coumadin until INR is therapeutic INR is 1.7 on 04/28 INR is therapeutic to more than 2 on 04/29. Heparin discontinued Medically stable to be transferred to medical floor Continue physical therapy and current medications Likely discharge tomorrow Subjective 04/26 The patient was seen and examined in medical floor Recently he was in [facility] from the hospital and then went home about 4 or 5 days before coming to the ER He was admitted with another attack of UTI and acute on chronic renal failure He has been feeling a little bit better since admission Complains to have nonspecific pain 04/27 Patient was seen and examined in medical floor He continues to complain pain which is worse at the back with radiation to the legs He has been on MS Contin, MSIR and Ultram for pain control He denies any chest pain and/or shortness of breath, any abdominal pain and no nausea or vomiting 04/28 The patient was seen and examined in medical floor He has been feeling a lot better but complains to have extreme weakness The pain seems to be under control Denies any significant symptoms 04/29 The patient was seen and examined in medical floor He has been out of bed on a chair He has complaints preseason nonmedical denies any significant symptoms except ongoing pain 04/30 The patient was seen and examined in medical telemetry unit He has been feeling much better and denies any significant symptoms He will be transferred to medical floor for continuation of care Likely discharge in a day or 2 05/01 The patient was seen and examined in medical floor With complaints to have severe pain at the back today otherwise denies any other symptoms He has been feeling better otherwise 05/02 The patient was seen and examined in medical unit He has been complaining of chest pain on and off since this morning without any other associated symptoms He feels generally weak but denies any shortness of breath, palpitation, any abdominal pain, nausea and/or vomiting He is supposed to go home this afternoon Review of Systems Review of Systems: All systems reviewed and are unremarkable except as noted below Constitutional: + weakness Cardiovascular: + chest pain Gastrointestinal: no abdominal pain, no nausea and no vomiting Bowel movement Genitourinary: + dysuria, + genital pain (Secondary to catheter placement) and + problem reported (Hypogastric pain) Musculoskeletal: + back pain (Is reasonably controlled with current medications) Physical Exam Physical Exam: Lying in bed complaining of precordial pain but no other symptoms Constitutional: well developed, well nourished, + acute distress (Minimal precordial pain), + obese and comfortable; not ill appearing Eyes: PERRL, conjunctivae normal, anicteric sclerae ENMT: external ear and nose normal, oropharynx normal Neck: trachea midline, no thyromegaly neck nontender Respiratory: normal respiratory effort and normal percussion; no respiratory distress and does not use accessory muscles Auscultation: + diminished lung sounds and + crackles Cardiovascular: Rate/Rhythm: regular rate and regular rhythm Heart Sounds: normal S1 and normal S2 Vessels: normal peripheral pulses; no JVD Extremities: + pedal edema (1+ edema bilaterally-chronic in nature and seems to be getting worse now) Gastrointestinal (Abdomen): Inspection/Auscultation: + abdomen distended and normal bowel sounds Percussion/Palpation: + abdomen tender (Mild left flank) and abdomen soft; no abdominal mass Musculoskeletal: Spine: thoracic spine normal to inspection and lumbar spine normal to inspection; no cervical spinal tenderness Extremities: strength 5/5 throughout No acute arthritis involving any joints Skin: no rashes, warm and dry normal turgor; no lesions Neurologic: moves all extremities; no focal motor deficits Psychiatric: A+Ox3, euthymic affect Orientation: cooperative Lymphatic: no cervical or axillary lymphadenopathy no inguinal lymphadenopathy Results & Data Vital Signs (Past 12 Hours) Vital Signs Temp Pulse Resp BP Pulse Ox 05/02/19 11:24 36.9 C 104 H 18 114/72 96 05/02/19 07:18 36.6 C 52 L 16 118/67 93 05/02/19 06:00 92 H 123/78 Laboratory Results Short CBC 05/02/19 Range/Units 05:50 WBC 15.46 H (4.8-10.8) K/uL Hgb 10.1 L (14.0-18.0) g/dL Hct 31.7 L (42-52) % Plt Count 446 H (130-400) K/uL BMP 05/02/19 05:50 Sodium 138 Potassium 3.8 Chloride 101 Carbon Dioxide 31 BUN 19 H Creatinine 1.38 Glucose 163 H Calcium 8.6 Medications Administered Current Inpatient Medications Acetaminophen (Tylenol) 325 mg PO Q6H PRN PRN Reason: Pain or Fever Stop: 05/25/19 22:27 Aspirin (Ecotrin Ectab) 81 mg PO QAM [facility] Stop: 05/26/19 08:59 Last Admin: 05/02/19 08:46 Dose: 81 mg Documented by: Bisacodyl (Dulcolax) 10 mg PO DAILY PRN PRN Reason: Constipation Stop: 05/27/19 18:14 Last Admin: 04/27/19 19:47 Dose: 10 mg Documented by: Dextrose (Dextrose 50%) 25 - 50 ml IV UD PRN; Protocol PRN Reason: Hypoglycemia Protocol Stop: 05/25/19 22:27 Finasteride (Proscar) 5 mg PO QAM [facility] Stop: 05/26/19 08:59 Last Admin: 05/02/19 08:45 Dose: 5 mg Documented by: Fluticasone Propionate (Flonase) 2 sprays NA QAM [facility] Stop: 05/26/19 08:59 Last Admin: 05/02/19 08:47 Dose: 2 sprays Documented by: Gabapentin (Neurontin) 200 mg PO TID [facility] Stop: 05/26/19 08:59 Last Admin: 05/02/19 13:02 Dose: 200 mg Documented by: Glucagon (Glucagen) 1 mg SQ UD PRN; Protocol PRN Reason: Hypoglycemia Protocol Stop: 05/25/19 22:27 Glucose (Glucose 40%) 15 - 30 gm PO UD PRN; Protocol PRN Reason: Hypoglycemia Protocol Stop: 05/25/19 22:27 Glucose (Dex4 Glucose) 4 - 8 tabs PO UD PRN; Protocol PRN Reason: Hypoglycemia Protocol Stop: 05/25/19 22:27 Hydromorphone HCl (Dilaudid) 1 mg IV BID PRN PRN Reason: Pain Stop: 05/12/19 08:44 Last Admin: 05/02/19 06:21 Dose: 1 mg Documented by: Promethazine HCl 12.5 mg/ (Sodium Chloride) 50.5 mls @ 202 mls/hr IV Q6H PRN PRN Reason: Nausea And Vomiting Stop: 05/25/19 22:27 Last Infusion: 05/01/19 22:17 Dose: Infused Documented by: Acetaminophen (Ofirmev) 65 mls @ 200 mls/hr IV Q6H PRN PRN Reason: fever Stop: 05/26/19 05:14 Last Infusion: 04/28/19 00:47 Dose: Infused Documented by: Ertapenem 1,000 mg/ Sodium (Chloride) 60 mls @ 100 mls/hr IV Q24H [facility] Stop: 05/15/19 11:59 Last Infusion: 05/02/19 12:17 Dose: Infused Documented by: Insulin Aspart (Novolog Flexpen) 0 units SC ACHS [facility] Stop: 05/25/19 22:27 Last Admin: 05/02/19 12:44 Dose: 7 units Documented by: Insulin Glargine (Lantus Solostar Pen) 5 units SQ DAILY [facility] Stop: 05/26/19 08:59 Last Admin: 05/02/19 08:48 Dose: 5 units Documented by: Ipratropium Hamilton (Atrovent 0.02% 0.5mg/2.5ml) 0.5 mg INH Q4R PRN PRN Reason: SHORTNESS OF BREATH OR WHEEZIN Stop: 05/25/19 22:27 Isosorbide Dinitrate (Isordil) 10 mg PO DAILY@0700,1200 [facility] Stop: 05/26/19 06:59 Last Admin: 05/02/19 12:16 Dose: 10 mg Documented by: Levalbuterol HCl (Xopenex 1.25mg/0.5ml Neb) 1.25 mg INH Q4R PRN PRN Reason: SHORTNESS OF BREATH OR WHEEZIN Stop: 05/25/19 22:27 Lorazepam (Ativan) 1 mg PO TID PRN PRN Reason: Anxiety Stop: 05/25/19 22:27 Magnesium Oxide (Mag-Ox) 400 mg PO BID [facility] Stop: 06/01/19 09:29 Last Admin: 05/02/19 10:19 Dose: 400 mg Documented by: Metoprolol Succinate (Toprol Xl) 25 mg PO BID [facility] Stop: 05/26/19 04:14 Last Admin: 05/02/19 08:46 Dose: Not Given Documented by: Miscellaneous (Carbohydrates For Hypoglycemia) 15 - 30 gm PO UD PRN PRN Reason: Hypoglycemia Treatment Stop: 05/25/19 22:27 Miscellaneous (Remove Nicoderm Patch) 1 ea N/A HS [facility] Stop: 05/26/19 08:58 Last Admin: 05/01/19 20:55 Dose: Not Given Documented by: Morphine Sulfate (Ms Contin) 15 mg PO Q12 [facility] Stop: 05/10/19 20:59 Last Admin: 05/02/19 08:53 Dose: 15 mg Documented by: Nicotine (Nicoderm Cq) 21 mg TD QAM [facility] Stop: 05/25/19 22:27 Last Admin: 05/02/19 08:46 Dose: 21 mg Documented by: Nitroglycerin (Nitrostat) 0.4 mg SL UD PRN PRN Reason: Chest Pain Stop: 05/25/19 22:27 Oxycodone HCl (Roxicodone Immediate Rel) 15 mg PO Q4H PRN PRN Reason: pain not relieved by tylenol Stop: 05/09/19 20:44 Last Admin: 05/02/19 10:19 Dose: 15 mg Documented by: Pantoprazole Sodium (Protonix) 40 mg PO QAM [facility] Stop: 05/26/19 08:59 Last Admin: 05/02/19 08:46 Dose: 40 mg Documented by: Phenazopyridine HCl (Pyridium) 100 mg PO TID PRN PRN Reason: Bladder pain Stop: 05/26/19 10:37 Last Admin: 04/26/19 12:26 Dose: 100 mg Documented by: Polyethylene Glycol (Miralax Powder Packet) 17 gm PO DAILY [facility] Stop: 05/26/19 11:59 Last Admin: 05/02/19 08:45 Dose: Not Given Documented by: Senna/Docusate Sodium (Senokot S) 1 tab PO BID [facility] Stop: 05/25/19 22:27 Last Admin: 05/02/19 08:47 Dose: 1 tab Documented by: Spironolactone (Aldactone) 50 mg PO BID [facility] Stop: 05/30/19 20:59 Last Admin: 05/02/19 08:47 Dose: 50 mg Documented by: Tamsulosin HCl (Flomax) 0.4 mg PO DAILY [facility] Stop: 05/26/19 08:59 Last Admin: 05/02/19 08:47 Dose: 0.4 mg Documented by: Tiotropium Hamilton (Spiriva) 1 puffs INH DAILY [facility] Stop: 05/26/19 08:59 Last Admin: 05/02/19 08:44 Dose: 1 puffs Documented by: Torsemide (Demadex) 20 mg PO BID [facility] Stop: 05/30/19 20:59 Last Admin: 05/02/19 08:47 Dose: 20 mg Documented by: Warfarin Sodium (Coumadin) 7.5 mg PO DAILY@1600 [facility] Stop: 05/26/19 15:59 Last Admin: 05/01/19 15:39 Dose: 7.5 mg Documented by: (1) Sepsis Sepsis acute organ dysfunction status: unspecified Sepsis type: sepsis due to unspecified organism Qualified Code(s): A41.9 - Sepsis, unspecified organism (2) UTI (urinary tract infection) Hematuria presence: with hematuria Urinary tract infection type: site unspecified Qualified Code(s): N39.0 - Urinary tract infection, site not specified; R31.9 - Hematuria, unspecified (3) HTN (hypertension) Hypertension type: essential hypertension Qualified Code(s): I10 - Essential (primary) hypertension (4) Pulmonary embolism Pulmonary embolism type: unspecified Chronicity: chronic Acute cor pulmonale presence: without acute cor pulmonale Qualified Code(s): I27.82 - Chronic pulmonary embolism (5) COPD (chronic obstructive pulmonary disease) COPD type: emphysema Emphysema type: unspecified Qualified Code(s): J43.9 - Emphysema, unspecified
[2019-05-02] MEDS ORDERED: LORazepam 0.5 MG/1 ML VIAL IV STA ×2 (14:02→21:19)
[2019-05-02 14:51] LABS: Basophils # (auto) 0.03 K/uL (0-0.2); Basophils % (auto) 0.2 %; Eosinophils # (auto) 0.26 K/uL (0-0.5); Eosinophils % (auto) 1.6 %; Hematocrit (blood only) 33.1 % (42-52); Hemoglobin 10.9 g/dL (14.0-18.0); Immature Granulocytes # (auto) 0.31 K/uL (0.00-0.02); Immature Granulocytes % (auto) 1.9 %; Lymphocytes % (auto) 16.5 %; Mean Corpuscular Hgb Conc 32.9 g/dL (32-36); Mean Corpuscular Volume 72.4 fL (80-100); Mean Platelet Volume 9.6 fL (7.4-10.4); Monocytes # (auto) 0.55 K/uL (0.11-0.59); Monocytes % (auto) 3.4 %; Neutrophils # (auto) 12.51 K/uL (1.4-6.5); Neutrophils % (auto) 76.4 %; Platelet Count 491 K/uL (130-400); RDW Coefficient of Variation 19.6 % (11.5-14.5); RDW Standard Deviation 51.1 fL (36.4-46.3); Red Blood Count 4.57 M/uL (4.7-6.1); White Blood Count 16.36 K/uL (4.8-10.8)
[2019-05-02 15:18] LABS: Magnesium 1.7 mg/dl (1.8-2.4); Troponin I < 0.015 ng/ml (0-0.045)
[2019-05-02] MEDS: cephALEXin 500 MG CAP PO SCH (20:45)
[2019-05-02] MEDS: PROMETHAZINE HCL 12.5 MG in SODIUM CHLORIDE 0.9% 50 ML IV PRN (21:47)
[2019-05-03] MEDS: OXYCODONE HCL IR 5 MG TAB (IMMEDIATE RELEASE) PO PRN ×3 (01:22→10:17)
[2019-05-03 06:53] LABS: Basophils # (auto) 0.03 K/uL (0-0.2); Basophils % (auto) 0.2 %; Eosinophils # (auto) 0.23 K/uL (0-0.5); Eosinophils % (auto) 1.7 %; Hematocrit (blood only) 32.6 % (42-52); Hemoglobin 10.3 g/dL (14.0-18.0); Immature Granulocytes # (auto) 0.21 K/uL (0.00-0.02); Immature Granulocytes % (auto) 1.5 %; Lymphocytes # (auto) 2.04 K/uL (1.2-3.4); Mean Corpuscular Hgb Conc 31.6 g/dL (32-36); Mean Corpuscular Volume 73.9 fL (80-100); Mean Platelet Volume 9.7 fL (7.4-10.4); Monocytes # (auto) 0.63 K/uL (0.11-0.59); Monocytes % (auto) 4.6 %; Neutrophils # (auto) 10.47 K/uL (1.4-6.5); Platelet Count 445 K/uL (130-400); RDW Coefficient of Variation 19.8 % (11.5-14.5); RDW Standard Deviation 52.7 fL (36.4-46.3); Red Blood Count 4.41 M/uL (4.7-6.1); White Blood Count 13.61 K/uL (4.8-10.8)
[2019-05-03 07:28] LABS: BUN Creatinine Ratio 15.8 (10-20); Calcium 9.1 mg/dl (8.5-10.1); Creatinine Clr Calc Pharmacy 111.3 ml/min; Est GFR (Non-African American) 56.1; Magnesium 1.9 mg/dl (1.8-2.4)
[2019-05-03] MEDS: PANTOprazole 40 MG TAB PO SCH (08:22)
[2019-05-03] MEDS: MoRPHine SULFATE CR 15 MG TABCR PO SCH (08:22)
[2019-05-03] MEDS: METOPROLOL SUCC 25MG EXT REL TAB PO SCH (08:22)
[2019-05-03] MEDS: GABAPENTIN 100 MG CAP PO SCH (08:22)
[2019-05-03] MEDS: TORSEMIDE 10 MG TAB PO SCH (08:23)
[2019-05-03] MEDS: FINASTERIDE 5 MG TAB PO SCH (08:24)
[2019-05-03] MEDS: ASPIRIN 81 MG ECTAB PO SCH (08:24)
[2019-05-03] MEDS: POLYETHYLENE (MIRALAX) 17 GM PACK PO SCH (08:24)
[2019-05-03] MEDS: TAMSULOSIN HCL 0.4 MG CAP PO SCH (08:24)
[2019-05-03] MEDS: FLUTICASONE PROPIONATE NA SPR 16 GM BTL SCH (08:25)
[2019-05-03] MEDS: TIOTROPIUM BROMIDE 5 PUFF/90 MCG INH INH SCH (08:25)
[2019-05-03] MEDS: MAGNESIUM OXIDE 400 MG TAB PO SCH (08:25)
[2019-05-03] MEDS: DOCUSATE SODIUM/SENNA 50/8.6MG TAB PO SCH (08:26)
[2019-05-03] MEDS: SPIRONOLACTONE 25 MG TAB PO SCH (08:26)
[2019-05-03] MEDS: cephALEXin 500 MG CAP PO SCH (08:26)
[2019-05-03] MEDS: NICOTINE 21 MG/24 HR TDSY TD SCH (08:27)
[2019-05-03] MEDS: INSULIN GLARGINE SOLOSTAR 100 UNITS/ML 3 ML PEN SQ SCH (08:28)
[2019-05-03] MEDS: INSULIN ASPART 100 UNITS/ML 3 ML PEN SC SCH ×2 (08:29→12:38)
[2019-05-03] MEDS: PROMETHAZINE HCL 12.5 MG in SODIUM CHLORIDE 0.9% 50 ML IV PRN (08:58)
[2019-05-03] MEDS: ISOSORBIDE DINITRATE 10 MG TAB PO SCH ×2 (09:32→12:37)
[2019-05-03] MEDS ORDERED: HYDROmorphone INJ 1 MG/ML SYRINGE IV STA ×2 (09:39→13:40)
--- NOTE | 2019-05-03 09:45 | Hospitalist Progress Note ---
Date of Service May 03, 2019 Assessment & Plan (1) Chest pain: Complaining of chest pain since this morning On and off precordial without any chest compression or shortness of breath No radiation, no other associated symptoms EKG-no significant change Received small dose of Dilaudid and will give Ativan as the pain is continue Troponin has been ordered If negative will be discharged home this afternoon Complaint chest pain this morning-sublingual nitro helped a little bit and required intravenous Dilaudid to control pain EKG normal sinus rhythm without any-acute ST-T wave changes, troponin negative this morning and also negative last evening Chest x-ray-no pneumothorax, no CHF We will discuss with the patient and likely discharge this evening (2) Sepsis: Secondary to UTI due to chronic Lloyd catheter Management as below Clinically better and blood counts are improving Urology consulted for further management of Lloyd catheter to prevent recurrent infection Await urology evaluation and recommendation Discussed with urology-he is going to have an outpatient evaluation as distended Will cancel the consult with urology And appointment with urologist as an outpatient (3) UTI (urinary tract infection): This is a 48yo M with a PMH of chronic diastolic heart failure, history of PE on Coumadin, HTN, COPD, chronic pain with opioid dependence, mood disorder and recent ESBL UTI who presents with catheter malfunction beginning earlier today and was found to have sepsis in setting of urinary tract infection. -Meets sepsis criteria per CMS guidelines with fever of 38C, tachycardia at 130 and leukocytosis of 24K. Lactic within normal limits at 1.7 -Urinary symptoms and abnormal urinalysis in setting of chronic indwelling Lloyd, urinary retention and history of UTIs -Grew ESBL producing E. coli UTI a few months ago, treated with Invanz for 4-5 days -Started on Rocephin and imipenem in the ED. Also given 2 L NSS -Urine and blood cultures are positive for gram-negative bacilli, identification and sensitivity are pending -Blood cultures are positive for gram-negative bacilli, further identification and sensitivity pending -Urine culture grew E. coli resistant to fluoroquinolones -Clinically better we will continue intravenous ertapenem for now -Urine culture grew E. coli and the blood culture grew E. coli as well- pansensitive -We will discuss with ID for possible oral antibiotic on discharge -Repeat blood cultures have been ordered -Likely to go on oral antibiotic on Wednesday and discharge from the hospital -Denies any neurological symptoms -No fever no chills -Repeat blood cultures have been negative -Can be discharged on oral Keflex for 14 days in total -No more urinary symptoms -Oral antibiotic as prescribed and IV discontinued -White count has been improving (4) Chronic pain disorder: Continue MS Contin and MSIR If additional pain medications are needed we will consult pain therapist Complains to have increasing pain since admission Will ask for evaluation by pain therapist before giving any more narcotics Appreciate pain therapy input and recommendation Has been getting Dilaudid 1 mg twice daily as needed on top of current pain medication Not give any pain medications without the knowledge of pain therapist Pain seems to be under control Complaint severe pain this afternoon-received additional dose of Dilaudid 1 mg IV Plan to discharge this evening (5) Opioid dependence: Will not provide any extra Dilaudid may need to have pain therapy evaluation to provide increasing pain medications (6) MAHAMED (acute kidney injury): Likely secondary to dehydration and may be complicated by overuse of diuretics Will not provide any intravenous fluid and advised to drink more orally Hold diuretics including torsemide and Spironolactone We will monitor PRP-creatinine has been improving Creatinine has been improving We will restart diuretics in a day or 2 Renal function has been improving-creatinine has been improved to 1.4 on as of one 04/29 Kidney function has reverted to baseline We will restart his usual oral diuretics as an outpatient Creatinine kidney function remains stable Kidney function has been normal with oral diuretics Hyponatremia Likely secondary to use of diuretics We will monitor sodium levels while in the hospital Sodium is 130 today (7) Chronic diastolic CHF (congestive heart failure): No evidence of failure at this time Diuretics are on hold No evidence of fluid overload for now Will start a small dose of oral diuretics after normalization of kidney function Retaining fluid Kidney function is normalized and will start his usual outpatient diuretics Has been tolerating oral diuretics No signs of fluid overload (8) HTN (hypertension): BP seems to be controlled (9) Pulmonary embolism: Has been on Coumadin Subtherapeutic at this time Continue heparin and Coumadin INR has been therapeutic and heparin discontinued one 04/29 INR is therapeutic INR is 4.0 today, we will hold it for today (10) Depression with anxiety: (11) COPD (chronic obstructive pulmonary disease): No exacerbation DVT prophylaxis Intravenous heparin and oral Coumadin until INR is therapeutic INR is 1.7 on 04/28 INR is therapeutic to more than 2 on 04/29. Heparin discontinued-INR therapeutic as of today Medically stable to be transferred to medical floor Continue physical therapy and current medications Likely discharge this evening Subjective 04/26 The patient was seen and examined in medical floor Recently he was in [facility] from the hospital and then went home about 4 or 5 days before coming to the ER He was admitted with another attack of UTI and acute on chronic renal failure He has been feeling a little bit better since admission Complains to have nonspecific pain 04/27 Patient was seen and examined in medical floor He continues to complain pain which is worse at the back with radiation to the legs He has been on MS Contin, MSIR and Ultram for pain control He denies any chest pain and/or shortness of breath, any abdominal pain and no nausea or vomiting 04/28 The patient was seen and examined in medical floor He has been feeling a lot better but complains to have extreme weakness The pain seems to be under control Denies any significant symptoms 04/29 The patient was seen and examined in medical floor He has been out of bed on a chair He has complaints preseason nonmedical denies any significant symptoms except ongoing pain 04/30 The patient was seen and examined in medical telemetry unit He has been feeling much better and denies any significant symptoms He will be transferred to medical floor for continuation of care Likely discharge in a day or 2 05/01 The patient was seen and examined in medical floor With complaints to have severe pain at the back today otherwise denies any other symptoms He has been feeling better otherwise 05/02 The patient was seen and examined in medical unit He has been complaining of chest pain on and off since this morning without any other associated symptoms He feels generally weak but denies any shortness of breath, palpitation, any abdominal pain, nausea and/or vomiting He is supposed to go home this afternoon 05/03 The patient was seen and examined in the medical telemetry unit He has been complaining of chest pain since last evening EKG and troponin last evening were unremarkable Started to have severe pain this morning without any other associated symptoms Denies any shortness breath, any abdominal pain, nausea and/or vomiting Review of Systems Review of Systems: All systems reviewed and are unremarkable except as noted below Constitutional: + weakness Cardiovascular: + chest pain (This morning without any associated symptoms of shortness of breath, palpitation, nausea and or vomiting) Gastrointestinal: Bowel movement Genitourinary: + dysuria, + genital pain (Secondary to catheter placement) and + problem reported (Hypogastric pain) Musculoskeletal: + back pain (Is reasonably controlled with current medications) Physical Exam Physical Exam: No apparent distress at rest but anxious Constitutional: well developed, well nourished, + obese and comfortable; not ill appearing Eyes: PERRL, conjunctivae normal, anicteric sclerae ENMT: external ear and nose normal, oropharynx normal Neck: trachea midline, no thyromegaly neck nontender Respiratory: normal respiratory effort; no respiratory distress Auscultation: + diminished lung sounds Cardiovascular: Rate/Rhythm: regular rate and regular rhythm Heart Sounds: normal S1 and normal S2 Vessels: normal peripheral pulses; no JVD Extremities: + pedal edema (1+ edema bilaterally-chronic in nature and seems to be getting worse now) Gastrointestinal (Abdomen): Inspection/Auscultation: + abdomen distended and normal bowel sounds Percussion/Palpation: + abdomen tender (Mild left flank) and abdomen soft; no abdominal mass Musculoskeletal: Spine: thoracic spine normal to inspection and lumbar spine normal to inspection; no cervical spinal tenderness Extremities: strength 5/5 throughout Skin: no rashes, warm and dry normal turgor; no lesions Neurologic: moves all extremities; no focal motor deficits Psychiatric: A+Ox3, euthymic affect Orientation: cooperative Lymphatic: no cervical or axillary lymphadenopathy no inguinal lymphadenopathy Results & Data Vital Signs (Past 12 Hours) Vital Signs Temp Pulse Resp BP Pulse Ox 05/03/19 09:00 36.4 C 93 H 14 103/66 98 05/02/19 23:00 36.6 C 91 H 18 112/65 93 Laboratory Results Short CBC 05/02/19 05/03/19 Range/Units 14:32 06:18 WBC 16.36 H 13.61 H (4.8-10.8) K/uL Hgb 10.9 L 10.3 L (14.0-18.0) g/dL Hct 33.1 L 32.6 L (42-52) % Plt Count 491 H 445 H (130-400) K/uL BMP 05/03/19 06:18 Sodium 139 Potassium 4.0 Chloride 102 Carbon Dioxide 31 BUN 23 H Creatinine 1.46 H Glucose 142 H Calcium 9.1 Cardiac Enzymes 05/02/19 05/03/19 Range/Units 14:32 09:02 Troponin I < 0.015 < 0.015 (0-0.045) ng/ml Medications Administered Current Inpatient Medications Acetaminophen (Tylenol) 325 mg PO Q6H PRN PRN Reason: Pain or Fever Stop: 05/25/19 22:27 Aspirin (Ecotrin Ectab) 81 mg PO [facility] Stop: 05/26/19 08:59 Last Admin: 05/03/19 08:24 Dose: 81 mg Documented by: Bisacodyl (Dulcolax) 10 mg PO DAILY PRN PRN Reason: Constipation Stop: 05/27/19 18:14 Last Admin: 04/27/19 19:47 Dose: 10 mg Documented by: Cephalexin HCl (Keflex) 500 mg PO TID [facility] Stop: 05/12/19 20:59 Last Admin: 05/03/19 08:26 Dose: 500 mg Documented by: Dextrose (Dextrose 50%) 25 - 50 ml IV UD PRN; Protocol PRN Reason: Hypoglycemia Protocol Stop: 05/25/19 22:27 Finasteride (Proscar) 5 mg PO [facility] Stop: 05/26/19 08:59 Last Admin: 05/03/19 08:24 Dose: 5 mg Documented by: Fluticasone Propionate (Flonase) 2 sprays NA [facility] Stop: 05/26/19 08:59 Last Admin: 05/03/19 08:25 Dose: 2 sprays Documented by: Gabapentin (Neurontin) 200 mg PO TID [facility] Stop: 05/26/19 08:59 Last Admin: 05/03/19 08:22 Dose: 200 mg Documented by: Glucagon (Glucagen) 1 mg SQ UD PRN; Protocol PRN Reason: Hypoglycemia Protocol Stop: 05/25/19 22:27 Glucose (Glucose 40%) 15 - 30 gm PO UD PRN; Protocol PRN Reason: Hypoglycemia Protocol Stop: 05/25/19 22:27 Glucose (Dex4 Glucose) 4 - 8 tabs PO UD PRN; Protocol PRN Reason: Hypoglycemia Protocol Stop: 05/25/19 22:27 Hydromorphone HCl (Dilaudid) 1 mg IV BID PRN PRN Reason: Pain Stop: 05/12/19 08:44 Last Admin: 05/02/19 18:27 Dose: 1 mg Documented by: Promethazine HCl 12.5 mg/ (Sodium Chloride) 50.5 mls @ 202 mls/hr IV Q6H PRN PRN Reason: Nausea And Vomiting Stop: 05/25/19 22:27 Last Infusion: 05/03/19 09:33 Dose: Infused Documented by: Acetaminophen (Ofirmev) 65 mls @ 200 mls/hr IV Q6H PRN PRN Reason: fever Stop: 05/26/19 05:14 Last Infusion: 04/28/19 00:47 Dose: Infused Documented by: Insulin Aspart (Novolog Flexpen) 0 units SC ACHS [facility] Stop: 05/25/19 22:27 Last Admin: 05/03/19 08:29 Dose: Not Given Documented by: Insulin Glargine (Lantus Solostar Pen) 5 units SQ DAILY [facility] Stop: 05/26/19 08:59 Last Admin: 05/03/19 08:28 Dose: 5 units Documented by: Ipratropium [place] (Atrovent 0.02% 0.5mg/2.5ml) 0.5 mg INH Q4R PRN PRN Reason: SHORTNESS OF BREATH OR WHEEZIN Stop: 05/25/19 22:27 Isosorbide Dinitrate (Isordil) 10 mg PO DAILY@0700,1200 [facility] Stop: 05/26/19 06:59 Last Admin: 05/03/19 09:32 Dose: Not Given Documented by: Levalbuterol HCl (Xopenex 1.25mg/0.5ml Neb) 1.25 mg INH Q4R PRN PRN Reason: SHORTNESS OF BREATH OR WHEEZIN Stop: 05/25/19 22:27 Lorazepam (Ativan) 1 mg PO TID PRN PRN Reason: Anxiety Stop: 05/25/19 22:27 Magnesium Oxide (Mag-Ox) 400 mg PO BID [facility] Stop: 06/01/19 09:29 Last Admin: 05/03/19 08:25 Dose: 400 mg Documented by: Metoprolol Succinate (Toprol Xl) 25 mg PO BID [facility] Stop: 05/26/19 04:14 Last Admin: 05/03/19 08:22 Dose: 25 mg Documented by: Miscellaneous (Carbohydrates For Hypoglycemia) 15 - 30 gm PO UD PRN PRN Reason: Hypoglycemia Treatment Stop: 05/25/19 22:27 Miscellaneous (Remove Nicoderm Patch) 1 ea N/A HS [facility] Stop: 05/26/19 08:58 Last Admin: 05/02/19 20:46 Dose: Not Given Documented by: Morphine Sulfate (Ms Contin) 15 mg PO Q12 [facility] Stop: 05/10/19 20:59 Last Admin: 05/03/19 08:22 Dose: 15 mg Documented by: Nicotine (Nicoderm Cq) 21 mg TD QAM [facility] Stop: 05/25/19 22:27 Last Admin: 05/03/19 08:27 Dose: 21 mg Documented by: Nitroglycerin (Nitrostat) 0.4 mg SL UD PRN PRN Reason: Chest Pain Stop: 05/25/19 22:27 Last Admin: 05/03/19 08:57 Dose: 0.4 mg Documented by: Oxycodone HCl (Roxicodone Immediate Rel) 15 mg PO Q4H PRN PRN Reason: pain not relieved by tylenol Stop: 05/09/19 20:44 Last Admin: 05/03/19 10:17 Dose: 15 mg Documented by: Pantoprazole Sodium (Protonix) 40 mg PO QAM [facility] Stop: 05/26/19 08:59 Last Admin: 05/03/19 08:22 Dose: 40 mg Documented by: Phenazopyridine HCl (Pyridium) 100 mg PO TID PRN PRN Reason: Bladder pain Stop: 05/26/19 10:37 Last Admin: 04/26/19 12:26 Dose: 100 mg Documented by: Polyethylene Glycol (Miralax Powder Packet) 17 gm PO DAILY [facility] Stop: 05/26/19 11:59 Last Admin: 05/03/19 08:24 Dose: 17 gm Documented by: Senna/Docusate Sodium (Senokot S) 1 tab PO BID [facility] Stop: 05/25/19 22:27 Last Admin: 05/03/19 08:26 Dose: 1 tab Documented by: Spironolactone (Aldactone) 50 mg PO BID [facility] Stop: 05/30/19 20:59 Last Admin: 05/03/19 08:26 Dose: 50 mg Documented by: Tamsulosin HCl (Flomax) 0.4 mg PO DAILY [facility] Stop: 05/26/19 08:59 Last Admin: 05/03/19 08:24 Dose: 0.4 mg Documented by: Tiotropium [place] (Spiriva) 1 puffs INH DAILY [facility] Stop: 05/26/19 08:59 Last Admin: 05/03/19 08:25 Dose: 1 puffs Documented by: Torsemide (Demadex) 20 mg PO BID [facility] Stop: 05/30/19 20:59 Last Admin: 05/03/19 08:23 Dose: 20 mg Documented by: Warfarin Sodium (Coumadin) 7.5 mg PO DAILY@1600 [facility] Stop: 05/26/19 15:59 Last Admin: 05/01/19 15:39 Dose: 7.5 mg Documented by: (1) UTI (urinary tract infection) Hematuria presence: with hematuria Urinary tract infection type: site unspecified Qualified Code(s): N39.0 - Urinary tract infection, site not speci fied; R31.9 - Hematuria, unspecified (2) Sepsis Sepsis acute organ dysfunction status: unspecified Sepsis type: sepsis due to unspecified organism Qualified Code(s): A41.9 - Sepsis, unspecified organism (3) COPD (chronic obstructive pulmonary disease) COPD type: emphysema Emphysema type: unspecified Qualified Code(s): J43.9 - Emphysema, unspecified (4) Pulmonary embolism Acute cor pulmonale presence: without acute cor pulmonale Chronicity: chronic Pulmonary embolism type: unspecified Qualified Code(s): I27.82 - Chronic pulmonary embolism (5) HTN (hypertension) Hypertension type: essential hypertension Qualified Code(s): I10 - Essential (primary) hypertension
[2019-05-03] MEDS: HYDROmorphone INJ 1 MG/ML SYRINGE IV PRN (09:51)
--- NOTE | 2019-05-03 09:56 | XRay Report ---
XR chest 1V portable CLINICAL HISTORY: Congestive failure COMPARISON STUDY: April 25, 2019 FINDINGS: The heart is at the upper limits of normal in size. There is no focal pulmonary consolidati on. There is a stable opacity at the level of the left cardiophrenic angle, likely secondary to a fat pad. There are no pleural effusions. Slight interstitial prominence is felt to be secondary to techn ical factors given the patient's body habitus. There is no overt failure. IMPRESSION: No active disease in the chest. Electronically signed by: Luis Castro M.D. 05/03/2019 9:54 AM
[2019-05-03 10:04] LABS: INR 3.3 (0.9-1.1); Prothrombin Time 30.9 Seconds (9.0-12.0)
[2019-05-03] MEDS ORDERED: LORazepam 0.5 MG/1 ML VIAL IV STA (11:09)
--- NOTE | 2019-05-03 19:57 | Discharge Summary ---
Date of Service May 03, 2019 Admission HPI Per Admitting Provider This is a 48yo M with a PMH of chronic diastolic heart failure, history of PE on Coumadin, HTN, COPD, chronic pain with opioid dependence, mood disorder and recent ESBL UTI who presents with catheter malfunction beginning earlier today. Patient states that home health changed his catheter on Wednesday but since then, he has had dysuria and increased frequency. Today, noted that catheter did not seem to be draining correctly and he felt pressure. Also has had chills, nausea and dry heaves for the past few days since returning from [facility]. Has been eating and drinking less than usual. Denies any fever, lightheadedness, visual changes, palpitations, hematuria, diarrhea or constipation. Has some chronic abdominal pain. States that his weight has been stable and he has not had much swelling in his legs. States he has been taking all medications regularly, including Coumadin but that his INR level has not been checked in a while. In ED, found to be febrile at 38 C and tachycardic at 130. Leukocytosis of 24K, lactic within normal limits at 1.7. INR is subtherapeutic at 1.1. Patient states he has been taking regular Coumadin dose daily, which he believes is 5 mg at bedtime. Admission Exam Per Admitting Provider Physical Exam: General Appearance: WD/WN, no apparent distress, morbidly obese sitting in wheelchair Head: normocephalic, atraumatic Eyes: normal inspection, PERRL, EOMI ENT: hearing grossly normal, poor dentition, pharynx normal (dry mucous membranes) Neck: supple, no JVD, no adenopathy Respiratory/Chest: lungs clear to auscultation. No wheezes, rales or rhonci. No respiratory distress or accessory muscle use Cardiovascular: regular rate, rhythm, no murmur appreciated, normal peripheral pulses, 1+ BLE edema Abdomen/GI: normal bowel sounds, soft, mildly tender to palpation in LLQ and RLQ : Lloyd catheter draining dark yellow/orange urine Extremities/Musculoskelatal: normal inspection, hyperpigmentation of BLE, no calf tenderness, normal capillary refill Neurologic/Psych: alert, normal mood/affect, oriented x 3 Skin: normal color, warm/dry Principal Diagnosis Sepsis secondary to complicated UTI, MAHAMED secondary to dehydration, chronic diastolic CHF, chronic pain history of pulmonary embolism on Coumadin Discharge Exam Constitutional well developed, well nourished, + obese and comfortable; not ill appearing Eyes PERRL, conjunctivae normal, anicteric sclerae ENMT external ear and nose normal, oropharynx normal Neck trachea midline, no thyromegaly neck nontender Respiratory normal respiratory effort, lungs clear to auscultation normal respiratory effort; no respiratory distress Auscultation: + diminished lung sounds Cardiovascular Rate/Rhythm: regular rate and regular rhythm Heart Sounds: normal S1 and normal S2 Vessels: normal peripheral pulses; no JVD Extremities: + pedal edema (1+ edema bilaterally-chronic in nature and seems to be getting worse now) Gastrointestinal (Abdomen) Inspection/Auscultation: + abdomen distended and normal bowel sounds Percussion/Palpation: + abdomen tender (Mild left flank) and abdomen soft; no abdominal mass Musculoskeletal Spine: thoracic spine normal to inspection and lumbar spine normal to inspection; no cervical spinal tenderness Extremities: strength 5/5 throughout Skin no rashes, warm and dry normal turgor; no lesions Neurologic moves all extremities; no focal motor deficits Psychiatric A+Ox3, euthymic affect Orientation: cooperative Lymphatic no cervical or axillary lymphadenopathy no inguinal lymphadenopathy Discharge Data Allergies Allergy/AdvReac Type Severity Reaction Status Date / Time fentanyl Allergy Intermediate RASH/HIVES/SKIN Verified 04/25/19 19:04 REDNESS acetaminophen AdvReac Intermediate Unknown Verified 04/25/19 19:04 valproic acid AdvReac Intermediate PANCREATITS Verified 04/25/19 19:04 Consultations 04/25/19 20:22 ED Decision to Admit Stat 04/25/19 22:59 Consult Infectious Diseases Routine 04/27/19 10:24 Consult Pain Management Routine 04/29/19 16:01 Consult Case Management - Discharge Planning Routine Ordered Studies 04/25/19 21:16 CT abd pelvis wo con Urgent CT lumbar spine wo con Urgent Hospital Course (1) Chest pain: Complaining of chest pain since this morning On and off precordial without any chest compression or shortness of breath No radiation, no other associated symptoms EKG-no significant change Received small dose of Dilaudid and will give Ativan as the pain is continue Troponin has been ordered If negative will be discharged home this afternoon Complaint chest pain this morning-sublingual nitro helped a little bit and required intravenous Dilaudid to control pain EKG normal sinus rhythm without any-acute ST-T wave changes, troponin negative this morning and also negative last evening Chest x-ray-no pneumothorax, no CHF We will discuss with the patient and likely discharge this evening (2) Sepsis: Secondary to UTI due to chronic Lloyd catheter Management as below Clinically better and blood counts are improving Urology consulted for further management of Lloyd catheter to prevent recurrent infection Await urology evaluation and recommendation Discussed with urology-he is going to have an outpatient evaluation as distended Will cancel the consult with urology And appointment with urologist as an outpatient (3) UTI (urinary tract infection): This is a 48yo M with a PMH of chronic diastolic heart failure, history of PE on Coumadin, HTN, COPD, chronic pain with opioid dependence, mood disorder and recent ESBL UTI who presents with catheter malfunction beginning earlier today and was found to have sepsis in setting of urinary tract infection. -Meets sepsis criteria per CMS guidelines with fever of 38C, tachycardia at 130 and leukocytosis of 24K. Lactic within normal limits at 1.7 -Urinary symptoms and abnormal urinalysis in setting of chronic indwelling Lloyd, urinary retention and history of UTIs -Grew ESBL producing E. coli UTI a few months ago, treated with Invanz for 4-5 days -Started on Rocephin and imipenem in the ED. Also given 2 L NSS -Urine and blood cultures are positive for gram-negative bacilli, identification and sensitivity are pending -Blood cultures are positive for gram-negative bacilli, further identification and sensitivity pending -Urine culture grew E. coli resistant to fluoroquinolones -Clinically better we will continue intravenous ertapenem for now -Urine culture grew E. coli and the blood culture grew E. coli as well- pansensitive -We will discuss with ID for possible oral antibiotic on discharge -Repeat blood cultures have been ordered -Likely to go on oral antibiotic on Wednesday and discharge from the hospital -Denies any neurological symptoms -No fever no chills -Repeat blood cultures have been negative -Can be discharged on oral Keflex for 14 days in total -No more urinary symptoms -Oral antibiotic as prescribed and IV discontinued -White count has been improving (4) Chronic pain disorder: Continue MS Contin and MSIR If additional pain medications are needed we will consult pain therapist Complains to have increasing pain since admission Will ask for evaluation by pain therapist before giving any more narcotics Appreciate pain therapy input and recommendation Has been getting Dilaudid 1 mg twice daily as needed on top of current pain medication Not give any pain medications without the knowledge of pain therapist Pain seems to be under control Complaint severe pain this afternoon-received additional dose of Dilaudid 1 mg IV Plan to discharge this evening (5) Opioid dependence: Will not provide any extra Dilaudid may need to have pain therapy evaluation to provide increasing pain medications (6) MAHAMED (acute kidney injury): Likely secondary to dehydration and may be complicated by overuse of diuretics Will not provide any intravenous fluid and advised to drink more orally Hold diuretics including torsemide and Spironolactone We will monitor PRP-creatinine has been improving Creatinine has been improving We will restart diuretics in a day or 2 Renal function has been improving-creatinine has been improved to 1.4 on as of one 04/29 Kidney function has reverted to baseline We will restart his usual oral diuretics as an outpatient Creatinine kidney function remains stable Kidney function has been normal with oral diuretics Hyponatremia Likely secondary to use of diuretics We will monitor sodium levels while in the hospital Sodium is 130 today (7) Chronic diastolic CHF (congestive heart failure): No evidence of failure at this time Diuretics are on hold No evidence of fluid overload for now Will start a small dose of oral diuretics after normalization of kidney function Retaining fluid Kidney function is normalized and will start his usual outpatient diuretics Has been tolerating oral diuretics No signs of fluid overload (8) HTN (hypertension): BP seems to be controlled (9) Pulmonary embolism: Has been on Coumadin Subtherapeutic at this time Continue heparin and Coumadin INR has been therapeutic and heparin discontinued one 04/29 INR is therapeutic INR is 4.0 today, we will hold it for today (10) Depression with anxiety: (11) COPD (chronic obstructive pulmonary disease): No exacerbation DVT prophylaxis Intravenous heparin and oral Coumadin until INR is therapeutic INR is 1.7 on 04/28 INR is therapeutic to more than 2 on 04/29. Heparin discontinued-INR therapeutic as of today Medically stable to be transferred to medical floor Continue physical therapy and current medications Likely discharge this evening Total Time Total Time Spent Total Time Spent (In Minutes): 40 minutes Total Time Includes: Examination of the Patient, Discharge Planning, Medication Reconciliation and Communication With Other Providers Discharge Plan Discharge Items Patient Disposition: Home - Home Health Services Reason For Visit: SEPSIS Discharge Diagnosis: Sepsis secondary to complicated UTI, MAHAMED secondary to dehydration, chronic diastolic CHF, chronic pain history of pulmonary embolism on Coumadin Condition: Good Discharge Goals: Decrease discomfort, Increase independence and Improve nutritional status Activity: Resume your previous activity Non-emergency contact: Primary Care Provider Call non-emergency contact if: you have any medication questions Follow-up/Referrals: Yvon Oconnell MD [Physician] - 05/17/19 4:30 pm PCPINNA [Primary Care Provider] - 05/09/19 11:00 am (Your appointment is with Dr. Pickard in [facility]) Diet: Carb Consistent or DM2 and Heart Healthy Fluids: 1800ml (7 cups) Addtl Provider Instructions: New medications: Cephalexin 503 times daily Magnesium oxide 400 mg twice daily Nicotine patch 21 mg once daily Coumadin 7.5 mg daily. Check your INR one Wednesday and get further recommendation from the coagulation clinic. Diuretics as prescribed with fluid restriction to prevent CHF and fluid overload Keep regular appointment with the enrollment specialist. Take precaution to avoid falls Prescriptions: New magnesium oxide 400 mg (241.3 mg magnesium) Tablet 400 mg PO BID 30 Days Qty: 60 RF: 0 cephalexin 500 mg Capsule 500 mg PO TID 10 Days Qty: 30 RF: 0 nicotine [Nicoderm CQ] 21 mg/24 hr Patch 24 Hour 21 mg transdermal QAM 30 Days Qty: 30 RF: 0 phenazopyridine [Pyridium] 100 mg Tablet 100 mg PO TID PRN (Reason: pain) 3 Days Qty: 10 RF: 0 docusate sodium [Colace] 100 mg capsule 100 mg PO BID Qty: 60 RF: 0 lorazepam [Ativan] 1 mg tablet 1 mg PO Q12H PRN (Reason: anxiety) Qty: 7 RF: 0 Continued gabapentin 300 mg Capsule 300 mg PO TID RF: 0 ondansetron 4 mg Tablet,Disintegrating 4 mg PO Q4H PRN (Reason: Nausea And Vomiting) RF: 0 polyethylene glycol 3350 [Miralax] 17 gram powder in packet 17 g PO Q24H PRN (Reason: Constipation) RF: 0 nitroglycerin [Nitrostat] 0.4 mg tablet, sublingual 0.4 mg Sublingual DIRECTED PRN (Reason: CHEST PAIN) RF: 0 docusate sodium 100 mg capsule 100 mg PO BID RF: 0 metoprolol succinate 25 mg tablet extended release 24 hr 25 mg PO BID RF: 0 Fleet Enema 19-7 gram/118 mL Enema 133 ml MI DIRECTED PRN (Reason: Constipation) RF: 0 nystatin 100,000 unit/gram Powder 1 applic TOPICAL BID PRN (Reason: Skin Irritation) RF: 0 ipratropium-albuterol 0.5 mg-3 mg(2.5 mg base)/3 mL Solution For Nebulization 3 ml INHALATION Q4H PRN (Reason: Shortness Of Breath Or Wheezing) RF: 0 magnesium oxide 400 mg (241.3 mg magnesium) Tablet 400 mg PO QAM Qty: 0 RF: 0 spironolactone 50 mg tablet 50 mg PO BID RF: 0 potassium chloride 10 mEq tablet,ER particles/crystals 10 meq PO BID RF: 0 omeprazole 20 mg capsule,delayed release(DR/EC) 20 mg PO QAM RF: 0 cyclobenzaprine 10 mg Tablet 10 mg PO BID RF: 0 torsemide 10 mg tablet 20 mg PO BID RF: 0 morphine [MS Contin] 15 mg tablet extended release 15 mg PO Q12 RF: 0 oxycodone 15 mg tablet 15 mg PO Q4H RF: 0 hydroxyzine HCl 25 mg tablet 25 mg PO QID PRN (Reason: Anxiety) RF: 0 fluticasone propionate 50 mcg/actuation spray,suspension 2 spray Intranasal QAM RF: 0 aspirin [Ecotrin Low Strength] 81 mg tablet,delayed release (DR/EC) 81 mg PO QAM RF: 0 duloxetine 60 mg capsule,delayed release(DR/EC) 60 mg PO QAM RF: 0 isosorbide dinitrate 10 mg tablet 10 mg PO BID RF: 0 Spiriva with HandiHaler 18 mcg capsule, w/inhalation device 1 puff inhalation DAILY RF: 0 finasteride 5 mg tablet 5 mg PO QAM RF: 0 tamsulosin [Flomax] 0.4 mg Capsule 0.4 mg PO DAILY RF: 0 albuterol sulfate [Ventolin HFA] 90 mcg/actuation HFA aerosol inhaler 2 puff inhalation Q4H PRN (Reason: Wheezing) RF: 0 tramadol 50 mg tablet 50 mg PO Q4H PRN (Reason: Pain) Qty: 10 RF: 0 lorazepam 1 mg tablet 1 mg PO TID PRN (Reason: Anxiety) Qty: 10 RF: 0 Changed warfarin [Coumadin] 5 mg tablet 7.5 mg PO DAILY Qty: 0 RF: 0 Stand-Alone Forms: [facility]charge Orders: Discharge Order (Routine); Ordered 05/03/19 Ordered By: Augustus Vasquez Admission Data Admit Date/Time: 04/25/19 21:23 Attending Provider: Augustus Vasquez Admit Provider: Waldemar Galarza Primary Care Provider: PCP,NO Other Providers: Waldemar Galarza ; Aleksandr Jaimes ; Keren Cao Service: Telemetry Medical Other Interventions: Discharge Summary Assessment (RN) Last Done: 05/03/19 12:19 DC Date/Time DO NOT enter until pt leaves facility: 05/03/19 14:15
== END 2019-05-03 14:15 | disposition home health service (06) | DRG 698 ==
LOC: ED 18:27 → 2W 21:23

== ENCOUNTER 2019-05-10 14:23 | Inpatient (IN) ==
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
--- NOTE | 2019-05-10 15:03 | XRay Report ---
XR chest 1V portable HISTORY: 48 years-old Male Chest Pain acute atypical chest pain COMPARISON: Chest radiograph 05/03/2019 TECHNIQUE: Portable AP view of the chest FINDINGS: Cardiac silhouette is enlarged, unchanged. Lateral left costophrenic angle is excluded from the field -of-view. Unchanged left basilar opacity, likely secondary to prominent epicardial fat pad. No pneumo thorax, pleural effusion, focal airspace consolidation or overt pulmonary edema. Bones of the chest a ppear grossly intact. IMPRESSION: No acute process. The above report was generated using voice recognition software. It may contain grammatical, syntax o r spelling errors. Electronically signed by: Kem Apodaca M.D. 05/10/2019 3:02 PM
[2019-05-10 15:18] LABS: Basophils # (auto) 0.08 K/uL (0-0.2); Basophils % (auto) 0.6 %; Eosinophils # (auto) 0.19 K/uL (0-0.5); Eosinophils % (auto) 1.4 %; Hematocrit (blood only) 35.5 % (42-52); Hemoglobin 11.4 g/dL (14.0-18.0); Immature Granulocytes # (auto) 0.05 K/uL (0.00-0.02); Immature Granulocytes % (auto) 0.4 %; Lymphocytes % (auto) 20.1 %; Mean Corpuscular Hemoglobin 23.9 pg (25-34); Mean Corpuscular Hgb Conc 32.1 g/dL (32-36); Mean Corpuscular Volume 74.6 fL (80-100); Mean Platelet Volume 9.1 fL (7.4-10.4); Monocytes # (auto) 0.72 K/uL (0.11-0.59); Monocytes % (auto) 5.4 %; Neutrophils # (auto) 9.71 K/uL (1.4-6.5); Neutrophils % (auto) 72.1 %; Platelet Count 450 K/uL (130-400); RDW Coefficient of Variation 19.7 % (11.5-14.5); RDW Standard Deviation 53.8 fL (36.4-46.3); Red Blood Count 4.76 M/uL (4.7-6.1); White Blood Count 13.45 K/uL (4.8-10.8)
[2019-05-10] MEDS ORDERED: MoRPHine SULFATE 4 MG/ML 1 ML CARP\\VIAL IV STA ×2 (15:30→16:35)
[2019-05-10] MEDS ORDERED: ONDANSETRON INJ 2 MG/ML 2 ML VIAL IV STA (15:30)
[2019-05-10 15:32] LABS: INR 1.5 (0.9-1.1); Partial Thromboplastin Ratio 1.2; Partial Thromboplastin Time 32.6 Seconds (21.0-31.0); Prothrombin Time 15.3 Seconds (9.0-12.0)
[2019-05-10 15:37] LABS: Alanine Aminotransferase 22 U/L (12-78); Albumin Level 2.9 gm/dl (3.4-5.0); Aspartate Aminotransferase 10 U/L (15-37); BUN Creatinine Ratio 10.2 (10-20); Blood Urea Nitrogen 13 mg/dl (7-18); Calcium 9.5 mg/dl (8.5-10.1); Carbon Dioxide 26 mmol/L (21-32); Chloride 105 mmol/L (98-107); Creatinine Clr Calc Pharmacy 124.9 ml/min; Est GFR (African American) 76.9; Est GFR (Non-African American) 66.4; Glucose 112 mg/dl (70-99); Lipase 106 U/L (73-393); Potassium 4.6 mmol/L (3.5-5.1); Sodium 138 mmol/L (136-145)
[2019-05-10 15:42] LABS: Albumin Globulin Ratio 0.6 (0.9-2); Alkaline Phosphatase 148 U/L (45-117); Bilirubin,Total 0.4 mg/dl (0.2-1); Globulin 4.8 gm/dl (2.5-4.0); Total Protein 7.7 gm/dl (6.4-8.2); Troponin I < 0.015 ng/ml (0-0.045)
[2019-05-10] MEDS ORDERED: Heparin IV Standard *NO* Bolus IV ONE (16:52)
[2019-05-10 17:14] LABS: Appearance Urine Cloudy (Clear); Bilirubin Urine Negative (Negative); Blood Urine 1+ (Negative); Color Urine Yellow; Glucose Urine UA Negative (Negative); Ketones Urine Negative (Negative); Leukocyte Esterase Urine 2+ (Negative); Nitrite Urine Negative (Negative); Protein Urine Negative (Negative); Urobilinogen Urine Negative (Negative)
[2019-05-10 17:38] LABS: Bacteria Urine 1+ (Negative); Epithelial Cell Urine 0-5 /lpf (0-5)
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
[2019-05-10] MEDS ORDERED: HEPARIN 25000 UNIT/500 ML D5W IV ONE (18:09)
[2019-05-10] MEDS: HEPARIN SODIUM/DEXTROSE 25,000 UNITS/500 ML BAG IV SCH (18:20)
[2019-05-10] MEDS: HYDROmorphone INJ 1 MG/ML SYRINGE IV PRN (18:55)
[2019-05-10] MEDS ORDERED: ALBUT/IPRATROP 3MG/0.5MG NEB 3 ML VIAL INH PRN (19:08)
[2019-05-10] MEDS ORDERED: SOD PHOSPHATE/SOD BIPHOSPHATE ENEMA 132 ML BTL PR PRN (19:08)
[2019-05-10] MEDS: OXYCODONE HCL IR 5 MG TAB (IMMEDIATE RELEASE) PO SCH (19:59)
[2019-05-10] MEDS ORDERED: GLUCOSE 40% GEL 15 GM TUBE PO PRN (21:00)
[2019-05-10] MEDS ORDERED: GLUCOSE 10 TABS/TUBE PO PRN (21:00)
[2019-05-10] MEDS ORDERED: DEXTROSE 50% 50 ML SYRINGE IV PRN (21:00)
[2019-05-10] MEDS ORDERED: CARBOHYDRATES FOR HYPOGLYCEMIA PO PRN (21:00)
[2019-05-10] MEDS ORDERED: GLUCAGON FOR INJ 1 MG VIAL SQ PRN (21:00)
[2019-05-10] MEDS: TORSEMIDE 10 MG TAB PO SCH (21:08)
[2019-05-10] MEDS: METOPROLOL SUCC 25MG EXT REL TAB PO SCH (21:09)
[2019-05-10] MEDS: WARFARIN SOD 7.5 MG TAB PO SCH (21:09)
[2019-05-10] MEDS: GABAPENTIN 300 MG CAP PO SCH (21:09)
[2019-05-10] MEDS: CYCLOBENZAPRINE HCL 10 MG TAB PO SCH (21:09)
[2019-05-10] MEDS: DOCUSATE SODIUM 100 MG CAP PO SCH (21:09)
[2019-05-10] MEDS: MoRPHine SULFATE CR 15 MG TABCR PO SCH (21:09)
[2019-05-10] MEDS: MAGNESIUM OXIDE 400 MG TAB PO SCH (21:09)
[2019-05-10] MEDS: SPIRONOLACTONE 25 MG TAB PO SCH (21:10)
[2019-05-10] MEDS: PROMETHAZINE HCL 12.5 MG in SODIUM CHLORIDE 0.9% 50 ML IV PRN (21:23)
[2019-05-10] MEDS: INSULIN ASPART 100 UNITS/ML 3 ML PEN SC SCH (21:23)
[2019-05-10] MEDS: TRAMADOL HCL 50 MG TABLET PO PRN (21:25)
[2019-05-10] MEDS: NITROGLYCERIN 2% OINTMENT 30GM TUBE EXT SCH (21:26)
[2019-05-11] MEDS: OXYCODONE HCL IR 5 MG TAB (IMMEDIATE RELEASE) PO SCH ×6 (00:08→20:55)
[2019-05-11] MEDS ORDERED: HYDROmorphone INJ 1 MG/ML SYRINGE IV STA (01:40)
[2019-05-11] MEDS: NITROGLYCERIN 2% OINTMENT 30GM TUBE EXT SCH ×3 (01:56→14:06)
[2019-05-11] MEDS: TRAMADOL HCL 50 MG TABLET PO PRN ×5 (01:57→22:19)
[2019-05-11] MEDS: HEPARIN SODIUM/DEXTROSE 25,000 UNITS/500 ML BAG IV SCH ×2 (04:54→15:40)
[2019-05-11 05:05] LABS: Basophils # (auto) 0.06 K/uL (0-0.2); Basophils % (auto) 0.4 %; Eosinophils # (auto) 0.37 K/uL (0-0.5); Eosinophils % (auto) 2.7 %; Hemoglobin 11.2 g/dL (14.0-18.0); Immature Granulocytes # (auto) 0.05 K/uL (0.00-0.02); Immature Granulocytes % (auto) 0.4 %; Lymphocytes # (auto) 3.72 K/uL (1.2-3.4); Mean Corpuscular Volume 75.1 fL (80-100); Mean Platelet Volume 9.5 fL (7.4-10.4); Monocytes # (auto) 0.71 K/uL (0.11-0.59); Monocytes % (auto) 5.1 %; Neutrophils # (auto) 8.88 K/uL (1.4-6.5); Neutrophils % (auto) 64.4 %; Platelet Count 398 K/uL (130-400); RDW Coefficient of Variation 19.8 % (11.5-14.5); RDW Standard Deviation 53.9 fL (36.4-46.3); Red Blood Count 4.66 M/uL (4.7-6.1); White Blood Count 13.79 K/uL (4.8-10.8)
[2019-05-11 05:20] LABS: BUN Creatinine Ratio 10.2 (10-20); Blood Urea Nitrogen 15 mg/dl (7-18); Calcium 9.4 mg/dl (8.5-10.1); Carbon Dioxide 30 mmol/L (21-32); Chloride 102 mmol/L (98-107); Creatinine Clr Calc Pharmacy 107.9 ml/min; Est GFR (African American) 64.5; Est GFR (Non-African American) 55.6; Glucose 127 mg/dl (70-99); Magnesium 2.1 mg/dl (1.8-2.4); Potassium 4.1 mmol/L (3.5-5.1); Sodium 138 mmol/L (136-145)
[2019-05-11 05:25] LABS: INR 1.7 (0.9-1.1); Partial Thromboplastin Ratio 2.4; Prothrombin Time 16.8 Seconds (9.0-12.0); Troponin I < 0.015 ng/ml (0-0.045)
[2019-05-11 05:26] LABS: Partial Thromboplastin Time 64.2 Seconds (21.0-31.0)
[2019-05-11] MEDS: PROMETHAZINE HCL 12.5 MG in SODIUM CHLORIDE 0.9% 50 ML IV PRN (05:31)
[2019-05-11] MEDS: ISOSORBIDE DINITRATE 10 MG TAB PO SCH ×2 (07:43→13:23)
[2019-05-11] MEDS: INSULIN ASPART 100 UNITS/ML 3 ML PEN SC SCH ×4 (07:43→20:51)
[2019-05-11] MEDS: HYDROmorphone INJ 1 MG/ML SYRINGE IV PRN ×2 (07:47→19:57)
[2019-05-11] MEDS: PANTOprazole 40 MG TAB PO SCH (10:20)
[2019-05-11] MEDS: FLUTICASONE PROPIONATE NA SPR 16 GM BTL SCH (10:20)
[2019-05-11] MEDS: SPIRONOLACTONE 25 MG TAB PO SCH ×2 (10:21→16:40)
[2019-05-11] MEDS: MAGNESIUM OXIDE 400 MG TAB PO SCH ×2 (10:21→20:47)
[2019-05-11] MEDS: DULOXETINE HCL 60 MG CAP PO SCH (10:21)
[2019-05-11] MEDS: TAMSULOSIN HCL 0.4 MG CAP PO SCH (10:22)
[2019-05-11] MEDS: FINASTERIDE 5 MG TAB PO SCH (10:22)
[2019-05-11] MEDS: DOCUSATE SODIUM 100 MG CAP PO SCH ×2 (10:22→20:47)
[2019-05-11] MEDS: ASPIRIN 81 MG ECTAB PO SCH (10:22)
[2019-05-11] MEDS: NICOTINE 21 MG/24 HR TDSY TD SCH (10:23)
[2019-05-11] MEDS: GABAPENTIN 300 MG CAP PO SCH ×3 (10:23→20:47)
[2019-05-11] MEDS: MoRPHine SULFATE CR 15 MG TABCR PO SCH ×2 (10:25→20:54)
[2019-05-11] MEDS: TIOTROPIUM BROMIDE 5 PUFF/90 MCG INH INH SCH (10:25)
[2019-05-11] MEDS: METOPROLOL SUCC 25MG EXT REL TAB PO SCH (12:22)
[2019-05-11] MEDS: CYCLOBENZAPRINE HCL 10 MG TAB PO SCH ×2 (12:22→20:47)
[2019-05-11] MEDS: PROMETHAZINE HCL 25 MG TAB PO PRN ×2 (12:47→20:55)
[2019-05-11] MEDS ORDERED: METOPROLOL SUCC 50MG EXT REL TAB PO STA (16:10)
[2019-05-11] MEDS: WARFARIN SOD 7.5 MG TAB PO SCH (16:39)
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
--- NOTE | 2019-05-11 17:51 | Hospitalist Progress Note ---
Date of Service May 11, 2019 Assessment & Plan (1) Chest pain: Has been complaining of follow-up chest pain for the last few days Initial EKG and troponins unremarkable Will admit to telemetry observation with observation Serial cardiac enzymes and EKG to rule out ACS Add Nitropaste to control chest pain If ruled out, DSE tomorrow morning-canceled due to potential risk of inducing arrhythmias Cardiology consulted-appreciate input and recommendation Serial cardiac enzymes and EKG remain unremarkable ISMO has been changed to IMDUR 30 mg once a day and beta-nasim has been increased (2) Palpitations: Has been complaining of palpitation since this morning Noted to have heart rate as high as 180 at home and also during transportation to the hospital No documentation of the heart rate and/or any tracings May have paroxysmal atrial tachycardia/fibrillation We will monitor in the telemetry unit-no tachycardia or tachyarrhythmias noted on monitor (3) Chronic diastolic CHF (congestive heart failure): Seems to be euvolemic Negative chest x-ray for any CHF We will continue current medications Remains controlled (4) Indwelling Lloyd catheter present: History of recurrent urinary tract infection Has chronic Lloyd catheter in situ (5) Pulmonary embolism: History of pulmonary embolism Has been on Coumadin INR is 1.5 We will put him on heparin intravenously without any bolus Monitor INR-1.7 on 05/09 We will continue heparin and Coumadin for today (6) COPD (chronic obstructive pulmonary disease): No acute exacerbation We will continue current medications (7) Depression with anxiety: No acute anxiety under confusion DVT prophylaxis Heparin plus Coumadin CODE STATUS Full (8) Chronic pain disorder: Has been under the care of pain therapist as an outpatient We will continue current dose of narcotics which includes MS Contin and MSIR and Ultram Need additional dose of intravenous Dilaudid while he starts physical therapy Subjective 05/11 Patient was seen and examined in telemetry unit He has been complaining of left ankle pain as he tripped over 1 of the toys of his grandson Denies any more chest pain Chronic pain seems to be controlled Review of Systems Review of Systems: All systems reviewed and are unremarkable except as noted below Musculoskeletal: + joint pain (Left ankle pain) Chronic right ankle pain and complaints to have more left ankle pain Physical Exam Physical Exam: Lying in bed comfortably Constitutional: well developed, well nourished and + morbidly obese; no acute distress Eyes: PERRL, conjunctivae normal, anicteric sclerae ENMT: external ear and nose normal, oropharynx normal Neck: trachea midline, no thyromegaly Respiratory: normal respiratory effort; no respiratory distress Auscultation: + diminished lung sounds and + crackles (Minimal crackles at the bases) Cardiovascular: Rate/Rhythm: regular rate and regular rhythm Heart Sounds: no murmur Extremities: + edema (1+ bilateral) Gastrointestinal (Abdomen): Inspection/Auscultation: abdomen normal to inspection, + abdomen distended and normal bowel sounds Percussion/Palpation: abdomen soft Neurologic: moves all extremities; no focal motor deficits Lymphatic: no cervical or axillary lymphadenopathy Results & Data Vital Signs (Past 12 Hours) Vital Signs Temp Pulse Pulse Resp BP Pulse Ox 05/11/19 15:29 36.7 C 96 H 20 131/91 92 05/11/19 09:30 84 05/11/19 07:07 37.0 C 82 19 137/72 94 Laboratory Results Short CBC 05/11/19 Range/Units 04:39 WBC 13.79 H (4.8-10.8) K/uL Hgb 11.2 L (14.0-18.0) g/dL Hct 35.0 L (42-52) % Plt Count 398 (130-400) K/uL BMP 05/11/19 04:39 Sodium 138 Potassium 4.1 Chloride 102 Carbon Dioxide 30 BUN 15 Creatinine 1.47 H Glucose 127 H Calcium 9.4 Cardiac Enzymes 05/10/19 05/11/19 Range/Units 21:06 04:39 Troponin I < 0.015 < 0.015 (0-0.045) ng/ml Medications Administered Current Inpatient Medications Albuterol (Duoneb) 3 ml INH Q4H PRN PRN Reason: Shortness Of Breath Or Wheezing Stop: 06/09/19 19:07 Albuterol (Ventolin Hfa) 2 puffs INH Q4H PRN; Protocol PRN Reason: Wheezing Stop: 06/09/19 19:07 Aspirin (Ecotrin Ectab) 81 mg PO QAM [facility] Stop: 06/10/19 08:59 Last Admin: 05/11/19 10:22 Dose: 81 mg Documented by: Cyclobenzaprine HCl (Flexeril) 10 mg PO BID [facility] Stop: 06/09/19 20:59 Last Admin: 08/22/19 12:22 Dose: 10 mg Documented by: Dextrose (Dextrose 50%) 25 - 50 ml IV UD PRN; Protocol PRN Reason: Hypoglycemia Protocol Stop: 06/09/19 20:59 Docusate Sodium (Colace) 100 mg PO BID [facility] Stop: 06/09/19 20:59 Last Admin: 05/11/19 10:22 Dose: 100 mg Documented by: Duloxetine HCl (Cymbalta) 60 mg PO [facility] Stop: 06/10/19 08:59 Last Admin: 05/11/19 10:21 Dose: 60 mg Documented by: Finasteride (Proscar) 5 mg PO [facility] Stop: 06/10/19 08:59 Last Admin: 05/11/19 10:22 Dose: 5 mg Documented by: Fluticasone Propionate (Flonase) 2 sprays NA [facility] Stop: 06/10/19 08:59 Last Admin: 05/11/19 10:20 Dose: 2 sprays Documented by: Gabapentin (Neurontin) 300 mg PO TID [facility] Stop: 06/09/19 20:59 Last Admin: 05/11/19 14:05 Dose: 300 mg Documented by: Glucagon (Glucagen) 1 mg SQ UD PRN; Protocol PRN Reason: Hypoglycemia Protocol Stop: 06/09/19 20:59 Glucose (Glucose 40%) 15 - 30 gm PO UD PRN; Protocol PRN Reason: Hypoglycemia Protocol Stop: 06/09/19 20:59 Glucose (Dex4 Glucose) 4 - 8 tabs PO UD PRN; Protocol PRN Reason: Hypoglycemia Protocol Stop: 06/09/19 20:59 Hydromorphone HCl (Dilaudid) 1 mg IV Q12H PRN PRN Reason: SEVERE Pain Stop: 05/24/19 17:53 Last Admin: 05/11/19 07:47 Dose: 1 mg Documented by: Hydroxyzine HCl (Vistaril) 25 mg PO QID PRN PRN Reason: Anxiety Stop: 06/09/19 19:07 Heparin Sodium/Dextrose (Heparin Sodium/Dextrose) 25,000 units in 500 mls @ 45 mls/hr IV .Q11H7M [facility]; Protocol Stop: 06/09/19 16:59 Last Admin: 05/11/19 15:40 Dose: 2,250 units/hr, 45 mls/hr Documented by: Insulin Aspart (Novolog Flexpen) 0 units SC ACHS [facility] Stop: 06/09/19 20:59 Last Admin: 05/11/19 17:16 Dose: 6 units Documented by: Isosorbide Mononitrate (Imdur Extended Rel) 30 mg PO QAM [facility] Stop: 06/11/19 08:59 Lorazepam (Ativan) 1 mg PO Q12H PRN PRN Reason: anxiety Stop: 06/09/19 19:07 Magnesium Oxide (Mag-Ox) 400 mg PO BID [facility] Stop: 06/09/19 20:59 Last Admin: 05/11/19 10:21 Dose: 400 mg Documented by: Metoprolol Succinate (Toprol Xl) 50 mg PO BID [facility] Stop: 06/11/19 08:59 Miscellaneous (Remove Nicoderm Patch) 1 ea N/A HS [facility] Stop: 06/10/19 20:59 Miscellaneous (Carbohydrates For Hypoglycemia) 15 - 30 gm PO PRN PRN PRN Reason: Hypoglycemia Treatment Stop: 06/09/19 20:59 Morphine Sulfate (Ms Contin) 15 mg PO Q12 [facility] Stop: 05/24/19 20:59 Last Admin: 05/11/19 10:25 Dose: 15 mg Documented by: Nicotine (Nicoderm Cq) 21 mg TD QAM [facility] Stop: 06/10/19 08:59 Last Admin: 05/11/19 10:23 Dose: 21 mg Documented by: Nitroglycerin (Nitrostat) 0.4 mg SL UD PRN PRN Reason: CHEST PAIN Stop: 06/09/19 19:07 Oxycodone HCl (Roxicodone Immediate Rel) 15 mg PO Q4H [facility] Stop: 05/24/19 19:59 Last Admin: 05/11/19 14:05 Dose: 15 mg Documented by: Pantoprazole Sodium (Protonix) 40 mg PO DAILY [facility]; Protocol Stop: 06/10/19 08:59 Last Admin: 05/11/19 10:20 Dose: 40 mg Documented by: Polyethylene Glycol (Miralax Powder Packet) 17 gm PO Q24H PRN PRN Reason: Constipation Stop: 06/09/19 19:07 Promethazine HCl (Phenergan) 25 mg PO Q6H PRN PRN Reason: Nausea And Vomiting Stop: 06/10/19 12:35 Last Admin: 05/11/19 12:47 Dose: 25 mg Documented by: Sodium Biphosphate/Sodium Phosphate (Fleet Enema) 133 ml [place] UD PRN PRN Reason: Constipation Stop: 06/09/19 19:07 Spironolactone (Aldactone) 50 mg PO BID17 [facility] Stop: 06/09/19 19:59 Last Admin: 05/11/19 16:40 Dose: 50 mg Documented by: Tamsulosin HCl (Flomax) 0.4 mg PO DAILY [facility] Stop: 06/10/19 08:59 Last Admin: 05/11/19 10:22 Dose: 0.4 mg Documented by: Tiotropium [place] (Spiriva) 1 puffs INH DAILY [facility] Stop: 06/10/19 08:59 Last Admin: 05/11/19 10:25 Dose: 1 puffs Documented by: Torsemide (Demadex) 20 mg PO BID17 [facility] Stop: 06/09/19 19:59 Last Admin: 05/10/19 21:08 Dose: 20 mg Documented by: Tramadol HCl (Ultram) 50 mg PO Q4H PRN PRN Reason: Pain Stop: 06/09/19 19:07 Last Admin: 05/11/19 16:38 Dose: 50 mg Documented by: Warfarin Sodium (Coumadin) 7.5 mg PO DAILY@1600 [facility] Stop: 06/09/19 19:59 Last Admin: 05/11/19 16:39 Dose: 7.5 mg Documented by: (1) Chest pain Chest pain type: precordial pain Qualified Code(s): R07.2 - Precordial pain (2) Pulmonary embolism Pulmonary embolism type: unspecified Chronicity: chronic Acute cor pulmonale presence: without acute cor pulmonale Qualified Code(s): I27.82 - Chronic pulmonary embolism (3) COPD (chronic obstructive pulmonary disease) COPD type: emphysema Emphysema type: unspecified Qualified Code(s): J43.9 - Emphysema, unspecified
--- NOTE | 2019-05-11 19:28 | XRay Report ---
XR ankle LT min 3V routine HISTORY: 48 years-old Male r/o fracture acute left ankle pain COMPARISON: Left ankle radiographs 12/22/2018 TECHNIQUE: 3 views of the left ankle FINDINGS: Soft tissue prominence about the lower leg and ankle redemonstrated. Soft tissue calcifications of th e lower leg redemonstrated. Mild tibiotalar degenerative change. Small enthesophyte about the Yolette s insertion site of the calcaneus. No acute fracture, or dislocation. No osteochondral defect. IMPRESSION: Soft tissue swelling without acute fracture or dislocation. The above report was generated using voice recognition software. It may contain grammatical, syntax o r spelling errors. Electronically signed by: Kem Apodaca M.D. 05/11/2019 7:27 PM
[2019-05-12] MEDS: OXYCODONE HCL IR 5 MG TAB (IMMEDIATE RELEASE) PO SCH ×6 (01:03→21:57)
[2019-05-12] MEDS: TRAMADOL HCL 50 MG TABLET PO PRN ×4 (02:55→23:17)
[2019-05-12] MEDS: HEPARIN SODIUM/DEXTROSE 25,000 UNITS/500 ML BAG IV SCH (03:57)
[2019-05-12] MEDS ORDERED: HYDROmorphone INJ 0.5 MG/0.5 ML SYR IV STA (04:59)
[2019-05-12 07:36] LABS: Basophils # (auto) 0.05 K/uL (0-0.2); Basophils % (auto) 0.4 %; Eosinophils # (auto) 0.27 K/uL (0-0.5); Eosinophils % (auto) 2.3 %; Hematocrit (blood only) 33.8 % (42-52); Hemoglobin 10.7 g/dL (14.0-18.0); Immature Granulocytes # (auto) 0.04 K/uL (0.00-0.02); Immature Granulocytes % (auto) 0.3 %; Lymphocytes # (auto) 2.69 K/uL (1.2-3.4); Lymphocytes % (auto) 22.9 %; Mean Corpuscular Hemoglobin 23.8 pg (25-34); Mean Corpuscular Hgb Conc 31.7 g/dL (32-36); Mean Corpuscular Volume 75.3 fL (80-100); Mean Platelet Volume 9.9 fL (7.4-10.4); Monocytes # (auto) 0.91 K/uL (0.11-0.59); Monocytes % (auto) 7.7 %; Neutrophils # (auto) 7.79 K/uL (1.4-6.5); Neutrophils % (auto) 66.4 %; Platelet Count 359 K/uL (130-400); RDW Coefficient of Variation 19.5 % (11.5-14.5); RDW Standard Deviation 53.5 fL (36.4-46.3); Red Blood Count 4.49 M/uL (4.7-6.1); White Blood Count 11.75 K/uL (4.8-10.8)
[2019-05-12 07:58] LABS: INR 2.4 (0.9-1.1); Prothrombin Time 23.2 Seconds (9.0-12.0)
[2019-05-12] MEDS: SPIRONOLACTONE 25 MG TAB PO SCH ×2 (07:59→17:24)
[2019-05-12] MEDS: MoRPHine SULFATE CR 15 MG TABCR PO SCH ×2 (07:59→21:57)
[2019-05-12] MEDS: DOCUSATE SODIUM 100 MG CAP PO SCH ×2 (08:00→21:57)
[2019-05-12] MEDS: GABAPENTIN 300 MG CAP PO SCH ×3 (08:00→21:57)
[2019-05-12] MEDS: PANTOprazole 40 MG TAB PO SCH (08:00)
[2019-05-12] MEDS: DULOXETINE HCL 60 MG CAP PO SCH (08:00)
[2019-05-12] MEDS: TAMSULOSIN HCL 0.4 MG CAP PO SCH (08:01)
[2019-05-12] MEDS: ASPIRIN 81 MG ECTAB PO SCH (08:01)
[2019-05-12] MEDS: MAGNESIUM OXIDE 400 MG TAB PO SCH ×2 (08:01→21:57)
[2019-05-12] MEDS: ISOSORBIDE MONO EXTENDED REL 30 MG TABCR PO SCH (08:01)
[2019-05-12] MEDS: METOPROLOL SUCC 50MG EXT REL TAB PO SCH ×2 (08:01→21:57)
[2019-05-12] MEDS: CYCLOBENZAPRINE HCL 10 MG TAB PO SCH ×2 (08:01→21:57)
[2019-05-12] MEDS: FINASTERIDE 5 MG TAB PO SCH (08:01)
[2019-05-12] MEDS: TIOTROPIUM BROMIDE 5 PUFF/90 MCG INH INH SCH (08:02)
[2019-05-12] MEDS: NICOTINE 21 MG/24 HR TDSY TD SCH (08:02)
[2019-05-12] MEDS: FLUTICASONE PROPIONATE NA SPR 16 GM BTL SCH (08:05)
[2019-05-12] MEDS: INSULIN ASPART 100 UNITS/ML 3 ML PEN SC SCH ×4 (08:05→20:13)
[2019-05-12] MEDS: POLYETHYLENE (MIRALAX) 17 GM PACK PO PRN (08:07)
[2019-05-12 08:14] LABS: BUN Creatinine Ratio 10.7 (10-20); Calcium 9.4 mg/dl (8.5-10.1); Creatinine Clr Calc Pharmacy 106.4 ml/min; Est GFR (African American) 62.9; Est GFR (Non-African American) 54.3; Magnesium 2.1 mg/dl (1.8-2.4); Potassium 4.2 mmol/L (3.5-5.1)
[2019-05-12] MEDS: HYDROmorphone INJ 1 MG/ML SYRINGE IV PRN ×2 (08:34→13:49)
--- NOTE | 2019-05-12 12:31 | Cardiology Progress Note ---
Date of Service May 12, 2019 Assessment & Plan (1) Chest pain: Atypical in character for angina. Serial troponin measurements negative over the last few months, nonischemic DSE June 2018. Difficult to distinguish his chest pain episodes from his other chronic pain issues. Repeat EKG without ischemic findings. Continue metoprolol, long-acting nitrate, conservative therapy. (2) Palpitations: Metoprolol dose increased to 50 mg twice daily, heart rates improved, no subjective palpitations overnight (3) Chronic diastolic CHF (congestive heart failure): Diuretics have been held today due to mild elevation his creatinine to 1.5. Will administer a one-time dose of furosemide 60 mg daily, and resume torsemide 20 mg twice daily later this afternoon. Continue spironolactone. Recheck chemistry panel tomorrow. (4) Tobacco abuse: Still smoking at home. Has nicotine patch. (5) Indwelling Lloyd catheter present: Draining clear yellow urine, recent UTI/urosepsis, doing well from the standpoint now. (6) Pulmonary embolism: INR was subtherapeutic yesterday 1.7. Not 2.4. Discontinue heparin. Subjective Chief complaint: Follow-up chest pain, palpitations, history of chronic right heart failure Subjective: Patient was out of bed when I arrived for my assessment working with occupational therapy. He walked a distance of approximately 6 feet with great difficulty utilizing a cane. His gait was unsteady. He had no chest discomfort with walking, but did have a shortness of breath. He complained of chest discomfort overnight last night prompting an EKG which was [id number] at 4:28 AM which revealed normal sinus rhythm 80 bpm, normal EKG. Telemetry reveals improved heart rates for the most part in the 80 bpm range. Review of Systems Review of Systems: All systems reviewed & are unremarkable except as noted in HPI & below Physical Exam Physical Exam: Temp Pulse Resp BP Pulse Ox 36.5 C 87 20 188/74 H 97 05/12/19 11:27 05/12/19 11:27 05/12/19 11:27 05/12/19 11:27 05/12/19 11:27 Constitutional: + obese; no acute distress Respiratory: normal respiratory effort, lungs clear to auscultation Cardiovascular: RRR, no murmur, no edema Neurologic: PERRL, EOMI, accommodation nl, no face palsy, no dysarthria Genitourinary: Lloyd catheter in place, draining clear yellow urine Results & Data Vital Signs (Past 12 Hours) Vital Signs Temp Pulse Resp BP Pulse Ox 05/12/19 11:27 36.5 C 87 20 188/74 H 97 05/12/19 07:42 36.6 C 73 20 147/79 H 95 05/12/19 04:00 36.8 C 77 18 114/80 97 Laboratory Results Coagulation 05/12/19 Range/Units 06:56 PT 23.2 H (9.0-12.0) Seconds CBC 05/12/19 Range/Units 06:56 WBC 11.75 H (4.8-10.8) K/uL RBC 4.49 L (4.7-6.1) M/uL Hgb 10.7 L (14.0-18.0) g/dL Hct 33.8 L (42-52) % Plt Count 359 (130-400) K/uL Neut # (Auto) 7.79 H (1.4-6.5) K/uL Lymph # (Auto) 2.69 (1.2-3.4) K/uL [place] # (Auto) 0.91 H (0.11-0.59) K/uL Eos # (Auto) 0.27 (0-0.5) K/uL Baso # (Auto) 0.05 (0-0.2) K/uL Comprehensive Metabolic Panel 05/12/19 Range/Units 06:56 Sodium 138 (136-145) mmol/L Potassium 4.2 (3.5-5.1) mmol/L Chloride 103 (98-107) mmol/L Carbon Dioxide 28 (21-32) mmol/L BUN 16 (7-18) mg/dl Creatinine 1.50 H (0.6-1.4) mg/dl Glucose 134 H (70-99) mg/dl Calcium 9.4 (8.5-10.1) mg/dl Intake and Output 05/11/19 05/12/19 05/12/19 22:59 06:59 14:59 Intake Total 942.25 / 2287.25 1000 / 2287.25 204.00 / 204.00 Output Total 850 / 2950 1250 / 2950 Balance 92.25 / -662.75 -250 / -662.75 204.00 / 204.00 Intake: IV 392.25 / 892.25 500 / 892.25 204.00 / 204.00 HEPARIN SODIUM/DEXTROSE 25,000 392.25 / 892.25 500 / 892.25 204.00 / 204.00 units In 500 ml @ 2,250 UNITS/ HR 45 mls/hr IV .[id number] [facility] Rx# :[id number] Oral 550 / 1395 500 / 1395 Output: Urine Amount (Catheter) 2099 Lloyd/Indwelling 2099 Other: Weight 195.9 kg Medications Administered Current Inpatient Medications Albuterol (Duoneb) 3 ml INH Q4H PRN PRN Reason: Shortness Of Breath Or Wheezing Stop: 06/09/19 19:07 Albuterol (Ventolin Hfa) 2 puffs INH Q4H PRN; Protocol PRN Reason: Wheezing Stop: 06/09/19 19:07 Aspirin (Ecotrin Ectab) 81 mg PO [facility] Stop: 06/10/19 08:59 Last Admin: 05/12/19 08:01 Dose: 81 mg Documented by: Cyclobenzaprine HCl (Flexeril) 10 mg PO BID [facility] Stop: 06/09/19 20:59 Last Admin: 05/12/19 08:01 Dose: 10 mg Documented by: Dextrose (Dextrose 50%) 25 - 50 ml IV UD PRN; Protocol PRN Reason: Hypoglycemia Protocol Stop: 06/09/19 20:59 Docusate Sodium (Colace) 100 mg PO BID [facility] Stop: 06/09/19 20:59 Last Admin: 05/12/19 08:00 Dose: 100 mg Documented by: Duloxetine HCl (Cymbalta) 60 mg PO [facility] Stop: 06/10/19 08:59 Last Admin: 05/12/19 08:00 Dose: 60 mg Documented by: [facility]aster[facility] ([facility]) [facility] [place]: 06/10/19 08:59 Last Admin: 05/12/19 08:01 Dose: 5 mg Documented by: Fluticasone Propionate (Flonase) 2 sprays NA [facility] Stop: 06/10/19 08:59 Last Admin: 05/12/19 08:05 Dose: 2 sprays Documented by: Gabapentin (Neurontin) 300 mg PO TID [facility] Stop: 06/09/19 20:59 Last Admin: 05/12/19 08:00 Dose: 300 mg Documented by: Glucagon (Glucagen) 1 mg SQ UD PRN; Protocol PRN Reason: Hypoglycemia Protocol Stop: 06/09/19 20:59 Glucose (Glucose 40%) 15 - 30 gm PO UD PRN; Protocol PRN Reason: Hypoglycemia Protocol Stop: 06/09/19 20:59 Glucose (Dex4 Glucose) 4 - 8 tabs PO UD PRN; Protocol PRN Reason: Hypoglycemia Protocol Stop: 06/09/19 20:59 Hydromorphone HCl (Dilaudid) 1 mg IV UD PRN PRN Reason: SEVERE Pain Stop: 05/24/19 17:53 Hydroxyzine HCl (Vistaril) 25 mg PO QID PRN PRN Reason: Anxiety Stop: 06/09/19 19:07 Furosemide 60 mg/ Syringe 6 mls @ 4 mls/min IV ONE ONE Stop: 05/12/19 13:01 Insulin Aspart (Novolog Flexpen) 0 units SC ACHS [facility] Stop: 06/09/19 20:59 Last Admin: 05/12/19 08:05 Dose: 5 units Documented by: Isosorbide Mononitrate (Imdur Extended Rel) 30 mg PO QAM [facility] Stop: 06/11/19 08:59 Last Admin: 05/12/19 08:01 Dose: 30 mg Documented by: Lorazepam (Ativan) 1 mg PO Q12H PRN PRN Reason: anxiety Stop: 06/09/19 19:07 Magnesium Oxide (Mag-Ox) 400 mg PO BID [facility] Stop: 06/09/19 20:59 Last Admin: 05/12/19 08:01 Dose: 400 mg Documented by: Metoprolol Succinate (Toprol Xl) 50 mg PO BID [facility] Stop: 06/11/19 08:59 Last Admin: 05/12/19 08:01 Dose: 50 mg Documented by: Miscellaneous (Remove Nicoderm Patch) 1 ea N/A HS [facility] Stop: 06/10/19 20:59 Last Admin: 05/11/19 20:42 Dose: 1 ea Documented by: Miscellaneous (Carbohydrates For Hypoglycemia) 15 - 30 gm PO PRN PRN PRN Reason: Hypoglycemia Treatment Stop: 06/09/19 20:59 Morphine Sulfate (Ms Contin) 15 mg PO Q12 [facility] Stop: 05/24/19 20:59 Last Admin: 05/12/19 07:59 Dose: 15 mg Documented by: Nicotine (Nicoderm Cq) 21 mg TD QAM [facility] Stop: 06/10/19 08:59 Last Admin: 05/12/19 08:02 Dose: 21 mg Documented by: Nitroglycerin (Nitrostat) 0.4 mg SL UD PRN PRN Reason: CHEST PAIN Stop: 06/09/19 19:07 Oxycodone HCl (Roxicodone Immediate Rel) 15 mg PO Q4H [facility] Stop: 05/24/19 19:59 Last Admin: 05/12/19 10:25 Dose: 15 mg Documented by: Pantoprazole Sodium (Protonix) 40 mg PO DAILY [facility]; Protocol Stop: 06/10/19 08:59 Last Admin: 05/12/19 08:00 Dose: 40 mg Documented by: Polyethylene Glycol (Miralax Powder Packet) 17 gm PO Q24H PRN PRN Reason: Constipation Stop: 06/09/19 19:07 Last Admin: 05/12/19 08:07 Dose: 17 gm Documented by: Promethazine HCl (Phenergan) 25 mg PO Q6H PRN PRN Reason: Nausea And Vomiting Stop: 06/10/19 12:35 Last Admin: 05/11/19 20:55 Dose: 25 mg Documented by: Sodium Biphosphate/Sodium Phosphate (Fleet Enema) 133 ml [place] UD PRN PRN Reason: Constipation Stop: 06/09/19 19:07 Spironolactone (Aldactone) 50 mg PO BID17 [facility] Stop: 06/09/19 19:59 Last Admin: 05/12/19 07:59 Dose: 50 mg Documented by: Tamsulosin HCl (Flomax) 0.4 mg PO DAILY [facility] Stop: 06/10/19 08:59 Last Admin: 05/12/19 08:01 Dose: 0.4 mg Documented by: Tiotropium [place] (Spiriva) 1 puffs INH DAILY [facility] Stop: 06/10/19 08:59 Last Admin: 05/12/19 08:02 Dose: 1 puffs Documented by: Torsemide (Demadex) 20 mg PO BID17 [facility] Stop: 06/09/19 19:59 Last Admin: 05/10/19 21:08 Dose: 20 mg Documented by: Torsemide (Demadex) 20 mg PO BID17 [facility] Stop: 06/11/19 16:59 Tramadol HCl (Ultram) 50 mg PO Q4H PRN PRN Reason: Pain Stop: 06/09/19 19:07 Last Admin: 05/12/19 02:55 Dose: 50 mg Documented by: Warfarin Sodium (Coumadin) 7.5 mg PO DAILY@1600 [facility] Stop: 06/09/19 19:59 Last Admin: 05/11/19 16:39 Dose: 7.5 mg Documented by: (1) Chest pain Chest pain type: precordial pain Qualified Code(s): R07.2 - Precordial pain (2) Pulmonary embolism Pulmonary embolism type: unspecified Chronicity: chronic Acute cor pulmonale presence: without acute cor pulmonale Qualified Code(s): I27.82 - Chronic pulmonary embolism
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
[2019-05-12] MEDS ORDERED: FUROSEMIDE 60 MG in SYRINGE 0 ML IV ONE (13:00)
--- NOTE | 2019-05-12 15:08 | Hospitalist Progress Note ---
Date of Service May 12, 2019 Assessment & Plan (1) Chest pain: Has been complaining of follow-up chest pain for the last few days Initial EKG and troponins unremarkable Will admit to telemetry observation with observation Serial cardiac enzymes and EKG to rule out ACS Add Nitropaste to control chest pain If ruled out, DSE tomorrow morning-canceled due to potential risk of inducing arrhythmias Cardiology consulted-appreciate input and recommendation Serial cardiac enzymes and EKG remain unremarkable ISMO has been changed to IMDUR 30 mg once a day and beta-nasim has been increased Continues to have chest pain without any EKG and/or troponin changes Appreciate cardiology input and recommendation (2) Palpitations: Has been complaining of palpitation since this morning Noted to have heart rate as high as 180 at home and also during transportation to the hospital No documentation of the heart rate and/or any tracings May have paroxysmal atrial tachycardia/fibrillation We will monitor in the telemetry unit-no tachycardia or tachyarrhythmias noted on monitor (3) Chronic diastolic CHF (congestive heart failure): Seems to be euvolemic Negative chest x-ray for any CHF We will continue current medications Remains controlled Has gained about 5 pounds since admission Creatinine has been elevated at 1.[address] Cardoza Monitor PRP and electrolytes (4) Indwelling Lloyd catheter present: History of recurrent urinary tract infection Has chronic Lloyd catheter in situ (5) Pulmonary embolism: History of pulmonary embolism Has been on Coumadin INR is 1.5 We will put him on heparin intravenously without any bolus Monitor INR-1.7 on 05/09 We will continue heparin and Coumadin for today INR has been more than 2 today and will discontinue heparin drip (6) COPD (chronic obstructive pulmonary disease): No acute exacerbation We will continue current medications (7) Depression with anxiety: No acute anxiety under confusion DVT prophylaxis Heparin plus Coumadin CODE STATUS Full (8) Chronic pain disorder: Has been under the care of pain therapist as an outpatient We will continue current dose of narcotics which includes MS Contin and MSIR and Ultram Need additional dose of intravenous Dilaudid while he starts physical therapy Pain therapy consulted-appreciate input and recommendation No increasing pain medications as per the instruction Subjective 05/11 Patient was seen and examined in telemetry unit He has been complaining of left ankle pain as he tripped over 1 of the toys of his grandson Denies any more chest pain Chronic pain seems to be controlled 05/12 Patient seen and examined in telemetry unit He continues to have chest pain and infected throughout the last night he has had chest pain He has been nitro and received a small dose of Dilaudid early this morning EKG and troponins remain unremarkable Complaints to have more pain at the back and the pain radiates to the legs and more ankle pain following recent trauma-without any x-ray abnormality Review of Systems Review of Systems: All systems reviewed and are unremarkable except as noted below Constitutional: + body aches Cardiovascular: + chest pain (7 out of 10 most of the time without any associated symptoms), + chest pain at rest and + radiating jaw, neck or arm pain Gastrointestinal: + bloating and + nausea; no abdominal pain Musculoskeletal: + back pain and + joint pain (Left ankle pain) Chronic right ankle pain and complaints to have more left ankle pain Physical Exam Physical Exam: Lying in bed comfortably Constitutional: well developed, well nourished and + morbidly obese; no acute distress Eyes: PERRL, conjunctivae normal, anicteric sclerae ENMT: external ear and nose normal, oropharynx normal Neck: trachea midline, no thyromegaly Respiratory: normal respiratory effort; no respiratory distress Auscultation: + diminished lung sounds and + crackles (Minimal crackles at the bases) Cardiovascular: Rate/Rhythm: regular rate and regular rhythm Heart Sounds: no murmur Extremities: + edema (1+ bilateral) Gastrointestinal (Abdomen): Inspection/Auscultation: abdomen normal to inspection, + abdomen distended and normal bowel sounds Percussion/Palpation: abdomen soft Neurologic: moves all extremities; no focal motor deficits Alert, 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 Lymphatic: no cervical or axillary lymphadenopathy Results & Data Vital Signs (Past 12 Hours) Vital Signs Temp Pulse Resp BP Pulse Ox 05/12/19 11:27 36.5 C 87 20 188/74 H 97 05/12/19 07:42 36.6 C 73 20 147/79 H 95 05/12/19 04:00 36.8 C 77 18 114/80 97 Laboratory Results Short CBC 05/12/19 Range/Units 06:56 WBC 11.75 H (4.8-10.8) K/uL Hgb 10.7 L (14.0-18.0) g/dL Hct 33.8 L (42-52) % Plt Count 359 (130-400) K/uL BMP 05/12/19 06:56 Sodium 138 Potassium 4.2 Chloride 103 Carbon Dioxide 28 BUN 16 Creatinine 1.50 H Glucose 134 H Calcium 9.4 Medications Administered Current Inpatient Medications Albuterol (Duoneb) 3 ml INH Q4H PRN PRN Reason: Shortness Of Breath Or Wheezing Stop: 06/09/19 19:07 Albuterol (Ventolin Hfa) 2 puffs INH Q4H PRN; Protocol PRN Reason: Wheezing Stop: 06/09/19 19:07 Aspirin ([facility]rin [facility]) [facility] [place]: 06/10/19 08:59 Last Admin: 05/12/19 08:01 Dose: 81 mg Documented by: Cyclobenzaprine HCl (Flexeril) 10 mg PO BID [facility] Stop: 06/09/19 20:59 Last Admin: 05/12/19 08:01 Dose: 10 mg Documented by: Dextrose (Dextrose 50%) 25 - 50 ml IV UD PRN; Protocol PRN Reason: Hypoglycemia Protocol Stop: 06/09/19 20:59 Docusate Sodium (Colace) 100 mg PO BID [facility] Stop: 06/09/19 20:59 Last Admin: 05/12/19 08:00 Dose: 100 mg Documented by: Duloxetine HCl (Cymbalta) 60 mg PO QAM [facility] Stop: 06/10/19 08:59 Last Admin: 05/12/19 08:00 Dose: 60 mg Documented by: Finasteride (Proscar) 5 mg PO QAM [facility] Stop: 06/10/19 08:59 Last Admin: 05/12/19 08:01 Dose: 5 mg Documented by: Fluticasone Propionate (Flonase) 2 sprays NA QAM [facility] Stop: 06/10/19 08:59 Last Admin: 05/12/19 08:05 Dose: 2 sprays Documented by: Gabapentin (Neurontin) 300 mg PO TID [facility] Stop: 06/09/19 20:59 Last Admin: 05/12/19 13:50 Dose: 300 mg Documented by: Glucagon (Glucagen) 1 mg SQ UD PRN; Protocol PRN Reason: Hypoglycemia Protocol Stop: 06/09/19 20:59 Glucose (Glucose 40%) 15 - 30 gm PO UD PRN; Protocol PRN Reason: Hypoglycemia Protocol Stop: 06/09/19 20:59 Glucose (Dex4 Glucose) 4 - 8 tabs PO UD PRN; Protocol PRN Reason: Hypoglycemia Protocol Stop: 06/09/19 20:59 Hydromorphone HCl (Dilaudid) 1 mg IV UD PRN PRN Reason: SEVERE Pain Stop: 05/24/19 17:53 Last Admin: 05/12/19 13:49 Dose: 1 mg Documented by: Hydroxyzine HCl (Vistaril) 25 mg PO QID PRN PRN Reason: Anxiety Stop: 06/09/19 19:07 Promethazine HCl 12.5 mg/ (Sodium Chloride) 50.5 mls @ 202 mls/hr IV Q6H PRN PRN Reason: Nausea And Vomiting Stop: 06/11/19 14:28 Insulin Aspart (Novolog Flexpen) 0 units SC ACHS [facility] Stop: 06/09/19 20:59 Last Admin: 05/12/19 12:46 Dose: 2 units Documented by: Isosorbide Mononitrate (Imdur Extended Rel) 30 mg PO QAM [facility] Stop: 06/11/19 08:59 Last Admin: 05/12/19 08:01 Dose: 30 mg Documented by: Lorazepam (Ativan) 1 mg PO Q12H PRN PRN Reason: anxiety Stop: 06/09/19 19:07 Magnesium Oxide (Mag-Ox) 400 mg PO BID [facility] Stop: 06/09/19 20:59 Last Admin: 05/12/19 08:01 Dose: 400 mg Documented by: Metoprolol Succinate (Toprol Xl) 50 mg PO BID [facility] Stop: 06/11/19 08:59 Last Admin: 05/12/19 08:01 Dose: 50 mg Documented by: Miscellaneous (Remove Nicoderm Patch) 1 ea N/A HS [facility] Stop: 06/10/19 20:59 Last Admin: 05/11/19 20:42 Dose: 1 ea Documented by: Miscellaneous (Carbohydrates For Hypoglycemia) 15 - 30 gm PO PRN PRN PRN Reason: Hypoglycemia Treatment Stop: 06/09/19 20:59 Morphine Sulfate (Ms Contin) 15 mg PO Q12 [facility] Stop: 05/24/19 20:59 Last Admin: 05/12/19 07:59 Dose: 15 mg Documented by: Nicotine (Nicoderm Cq) 21 mg TD QAM [facility] Stop: 06/10/19 08:59 Last Admin: 05/12/19 08:02 Dose: 21 mg Documented by: Nitroglycerin (Nitrostat) 0.4 mg SL UD PRN PRN Reason: CHEST PAIN Stop: 06/09/19 19:07 Oxycodone HCl (Roxicodone Immediate Rel) 15 mg PO Q4H [facility] Stop: 05/24/19 19:59 Last Admin: 05/12/19 13:49 Dose: 15 mg Documented by: Pantoprazole Sodium (Protonix) 40 mg PO DAILY [facility]; Protocol Stop: 06/10/19 08:59 Last Admin: 05/12/19 08:00 Dose: 40 mg Documented by: Polyethylene Glycol (Miralax Powder Packet) 17 gm PO Q24H PRN PRN Reason: Constipation Stop: 06/09/19 19:07 Last Admin: 05/12/19 08:07 Dose: 17 gm Documented by: Sodium Biphosphate/Sodium Phosphate (Fleet Enema) 133 ml [place] UD PRN PRN Reason: Constipation Stop: 06/09/19 19:07 Spironolactone (Aldactone) 50 mg PO BID17 [facility] Stop: 06/09/19 19:59 Last Admin: 05/12/19 07:59 Dose: 50 mg Documented by: Tamsulosin HCl (Flomax) 0.4 mg PO DAILY [facility] Stop: 06/10/19 08:59 Last Admin: 05/12/19 08:01 Dose: 0.4 mg Documented by: Tiotropium [place] (Spiriva) 1 puffs INH DAILY [facility] Stop: 06/10/19 08:59 Last Admin: 05/12/19 08:02 Dose: 1 puffs Documented by: Torsemide (Demadex) 20 mg PO BID17 [facility] Stop: 06/09/19 19:59 Last Admin: 05/10/19 21:08 Dose: 20 mg Documented by: Torsemide (Demadex) 20 mg PO BID17 [facility] Stop: 06/11/19 16:59 Tramadol HCl (Ultram) 50 mg PO Q4H PRN PRN Reason: Pain Stop: 06/09/19 19:07 Last Admin: 05/12/19 02:55 Dose: 50 mg Documented by: Warfarin Sodium (Coumadin) 7.5 mg PO DAILY@1600 [facility] Stop: 06/09/19 19:59 Last Admin: 05/11/19 16:39 Dose: 7.5 mg Documented by: (1) Chest pain Chest pain type: precordial pain Qualified Code(s): R07.2 - Precordial pain (2) Pulmonary embolism Pulmonary embolism type: unspecified Chronicity: chronic Acute cor pulmonale presence: without acute cor pulmonale Qualified Code(s): I27.82 - Chronic pulmonary embolism (3) COPD (chronic obstructive pulmonary disease) COPD type: emphysema Emphysema type: unspecified Qualified Code(s): J43.9 - Emphysema, unspecified
[2019-05-12] MEDS ORDERED: SODIUM CHLORIDE 0.65% NA SOLN 45 ML (OCEAN) ONE (15:31)
[2019-05-12] MEDS: WARFARIN SOD 7.5 MG TAB PO SCH (17:24)
[2019-05-12] MEDS: TORSEMIDE 10 MG TAB PO SCH (17:26)
[2019-05-12] MEDS: PROMETHAZINE HCL 12.5 MG in SODIUM CHLORIDE 0.9% 50 ML IV PRN (20:13)
[2019-05-13] MEDS: OXYCODONE HCL IR 5 MG TAB (IMMEDIATE RELEASE) PO SCH ×6 (02:41→21:10)
[2019-05-13] MEDS: NITROGLYCERIN SL 0.4 MG/TAB TAB SL PRN (03:46)
[2019-05-13] MEDS ORDERED: HYDROmorphone INJ 1 MG/ML SYRINGE IV STA (03:49)
[2019-05-13] MEDS: TRAMADOL HCL 50 MG TABLET PO PRN ×5 (03:56→22:08)
[2019-05-13 06:35] LABS: INR 1.8 (0.9-1.1); Prothrombin Time 17.9 Seconds (9.0-12.0)
[2019-05-13 07:02] LABS: BUN Creatinine Ratio 12.2 (10-20); Calcium 9.7 mg/dl (8.5-10.1); Creatinine Clr Calc Pharmacy 96.8 ml/min; Est GFR (African American) 56.5; Est GFR (Non-African American) 48.7; Magnesium 1.9 mg/dl (1.8-2.4)
[2019-05-13] MEDS: MoRPHine SULFATE CR 15 MG TABCR PO SCH ×2 (08:01→21:10)
[2019-05-13] MEDS: HYDROmorphone INJ 1 MG/ML SYRINGE IV PRN ×2 (08:01→13:20)
[2019-05-13] MEDS: POLYETHYLENE (MIRALAX) 17 GM PACK PO PRN (08:01)
[2019-05-13] MEDS: CYCLOBENZAPRINE HCL 10 MG TAB PO SCH ×2 (08:02→21:10)
[2019-05-13] MEDS: TAMSULOSIN HCL 0.4 MG CAP PO SCH (08:03)
[2019-05-13] MEDS: SPIRONOLACTONE 25 MG TAB PO SCH ×2 (08:03→17:39)
[2019-05-13] MEDS: TORSEMIDE 10 MG TAB PO SCH ×2 (08:03→17:40)
[2019-05-13] MEDS: DULOXETINE HCL 60 MG CAP PO SCH (08:04)
[2019-05-13] MEDS: FINASTERIDE 5 MG TAB PO SCH (08:04)
[2019-05-13] MEDS: ASPIRIN 81 MG ECTAB PO SCH (08:04)
[2019-05-13] MEDS: METOPROLOL SUCC 50MG EXT REL TAB PO SCH ×2 (08:04→21:10)
[2019-05-13] MEDS: MAGNESIUM OXIDE 400 MG TAB PO SCH ×2 (08:05→21:10)
[2019-05-13] MEDS: ISOSORBIDE MONO EXTENDED REL 30 MG TABCR PO SCH (08:05)
[2019-05-13] MEDS: TIOTROPIUM BROMIDE 5 PUFF/90 MCG INH INH SCH (08:05)
[2019-05-13] MEDS: NICOTINE 21 MG/24 HR TDSY TD SCH (08:05)
[2019-05-13] MEDS: PANTOprazole 40 MG TAB PO SCH (08:05)
[2019-05-13] MEDS: DOCUSATE SODIUM 100 MG CAP PO SCH ×2 (08:05→21:10)
[2019-05-13] MEDS: GABAPENTIN 300 MG CAP PO SCH ×3 (08:05→21:10)
[2019-05-13] MEDS: FLUTICASONE PROPIONATE NA SPR 16 GM BTL SCH (08:06)
[2019-05-13] MEDS: INSULIN ASPART 100 UNITS/ML 3 ML PEN SC SCH ×4 (08:09→21:11)
--- NOTE | 2019-05-13 13:12 | Cardiology Progress Note ---
Date of Service May 13, 2019 Assessment & Plan (1) Chest pain: Atypical in character for angina. Serial troponin measurements negative over the last few months, nonischemic DSE June 2018. Difficult to distinguish his chest pain episodes from his other chronic pain issues. Repeat EKG without ischemic findings. Continue metoprolol, long-acting nitrate, conservative therapy. do not see any cardiac component to chest pain ok to d/c tele (2) Palpitations: Metoprolol dose increased to 50 mg twice daily cont very high likelihood of DARIA, recommend outpatient eval (3) Chronic diastolic CHF (congestive heart failure): does not examine as volume overloaded, however, patient states that he feels "puffy" and would like a dose of IV lasix, will give cont po torsemide (4) Tobacco abuse: Still smoking at home. Has nicotine patch. (5) Indwelling Lloyd catheter present: Draining clear yellow urine, recent UTI/urosepsis, doing well from the standpoint now. (6) Pulmonary embolism: cont coumadin Subjective Pt seen and examined, states he continues to have have chest pain that has not changed despite ongoing treatments. Also, concerned that HR went up to 100bpm while bp was being taken on dynamap, otherwise, HR has been in 80's on monitor. Also, he noted that he's had apnic episodes while sleeping. tele reviewed: sinus rhythm without arrhythmia or significant ectopy. Review of Systems Review of Systems: All systems reviewed & are unremarkable except as noted in HPI & below Physical Exam Physical Exam: General: Awake, alert and oriented x 3. No acute distress. HEENT: Normocephalic, atraumatic. Pupils equal, round and reactive to light and accommodation. Extraocular muscles are intact. Anicteric sclera. Moist mucous membranes. Neck: No JVD. No bruit. Cardiovascular: Regular but distant Pulmonary: Clear to auscultation B/L. No rales, rhonchi or wheezing Abdomen: Bowel sounds x 4, soft. No rebound, guarding or tenderness. No organomegaly. Extremities: No clubbing, cyanosis or edema. +2 pedal pulses bilaterally. Skin: Warm and dry. Results & Data Vital Signs (Past 12 Hours) Vital Signs Temp Pulse Resp BP BP Pulse Ox 05/13/19 11:55 37.1 C 98 H 18 135/80 93 05/13/19 07:06 36.7 C 85 18 106/75 92 05/13/19 03:24 36.4 C L 93 H 22 117/82 93 (1) Chest pain Chest pain type: precordial pain Qualified Code(s): R07.2 - Precordial pain (2) Pulmonary embolism Pulmonary embolism type: unspecified Chronicity: chronic Acute cor pulmonale presence: without acute cor pulmonale Qualified Code(s): I27.82 - Chronic pulmonary embolism
--- NOTE | 2019-05-13 13:43 | Hospitalist Progress Note ---
Date of Service May 13, 2019 Assessment & Plan (1) Chest pain: Has been complaining of follow-up chest pain for the last few days Initial EKG and troponins unremarkable Will admit to telemetry observation with observation Serial cardiac enzymes and EKG to rule out ACS Add Nitropaste to control chest pain If ruled out, DSE tomorrow morning-canceled due to potential risk of inducing arrhythmias Cardiology consulted-appreciate input and recommendation Continues to have chest pain ISMO has been changed to IMDUR 30 mg once a day and beta-nasim has been increased Continues to have chest pain without any EKG and/or troponin changes We will not give any narcotics for chest pain, may use sublingual nitro as needed (2) Palpitations: Has been complaining of palpitation since this morning Noted to have heart rate as high as 180 at home and also during transportation to the hospital No documentation of the heart rate and/or any tracings May have paroxysmal atrial tachycardia/fibrillation We will monitor in the telemetry unit-no tachycardia or tachyarrhythmias noted on monitor Complains to have transient palpitation without any evidence of tachyarrhythmias on monitor (3) Chronic diastolic CHF (congestive heart failure): Seems to be euvolemic Negative chest x-ray for any CHF We will continue current medications Remains controlled Has gained about 5 pounds since admission Creatinine has been elevated at 1.[address] Cardoza Monitor PRP and electrolytes MAHAMED Likely secondary to use of diuretics Will need to continue diuretics for chronic CHF with fluid overload Monitor PRP and electrolytes (4) Indwelling Lloyd catheter present: History of recurrent urinary tract infection Has chronic Lloyd catheter in situ (5) Pulmonary embolism: History of pulmonary embolism Has been on Coumadin INR is 1.5 We will put him on heparin intravenously without any bolus Monitor INR-1.7 on 05/09 We will continue heparin and Coumadin for today INR has been more than 2 today and will discontinue heparin drip And it is 1.8 today, heparin has been discontinued (6) COPD (chronic obstructive pulmonary disease): No acute exacerbation We will continue current medications (7) Depression with anxiety: No acute anxiety under confusion DVT prophylaxis Heparin plus Coumadin CODE STATUS Full (8) Chronic pain disorder: Has been under the care of pain therapist as an outpatient We will continue current dose of narcotics which includes MS Contin and MSIR and Ultram Need additional dose of intravenous Dilaudid while he starts physical therapy Pain therapy consulted-appreciate input and recommendation No increasing pain medications as per the instruction Subjective 05/11 Patient was seen and examined in telemetry unit He has been complaining of left ankle pain as he tripped over 1 of the toys of his grandson Denies any more chest pain Chronic pain seems to be controlled 05/12 Patient seen and examined in telemetry unit He continues to have chest pain and infected throughout the last night he has had chest pain He has been nitro and received a small dose of Dilaudid early this morning EKG and troponins remain unremarkable Complaints to have more pain at the back and the pain radiates to the legs and more ankle pain following recent trauma-without any x-ray abnormality 05/13 Patient was seen and examined in telemetry unit He has been complaining of ongoing chest pain with radiation to left upper extremity Repeated EKGs and cardiac enzymes have been negative so far Complaints to have bloating without any shortness of breath and/or desaturation Review of Systems Review of Systems: All systems reviewed and are unremarkable except as noted below Constitutional: + body aches and + fatigue Cardiovascular: + chest pain (Ongoing without any EKG and/or troponin change), + chest pain at rest and + radiating jaw, neck or arm pain Gastrointestinal: + bloating and + nausea; no abdominal pain Musculoskeletal: + back pain and + joint pain (Left ankle pain) Chronic right ankle pain and complaints to have more left ankle pain Physical Exam Physical Exam: Lying in bed comfortably Constitutional: well developed, well nourished and + morbidly obese; no acute distress Eyes: PERRL, conjunctivae normal, anicteric sclerae ENMT: external ear and nose normal, oropharynx normal Neck: trachea midline, no thyromegaly Respiratory: normal respiratory effort; no respiratory distress Auscultation: + diminished lung sounds and + crackles (Minimal crackles at the bases) Cardiovascular: Rate/Rhythm: regular rate and regular rhythm Heart Sounds: no murmur Extremities: + edema (1+ bilateral which is much improved compared with prior admission) Gastrointestinal (Abdomen): Inspection/Auscultation: abdomen normal to inspection, + abdomen distended and normal bowel sounds Percussion/Palpation: abdomen soft Musculoskeletal: No acute arthritis in any joints Neurologic: moves all extremities; no focal motor deficits Lymphatic: no cervical or axillary lymphadenopathy Results & Data Vital Signs (Past 12 Hours) Vital Signs Temp Pulse Resp BP BP Pulse Ox 05/13/19 11:55 37.1 C 98 H 18 135/80 93 05/13/19 07:06 36.7 C 85 18 106/75 92 05/13/19 03:24 36.4 C L 93 H 22 117/82 93 Laboratory Results BMP 05/13/19 06:02 Sodium 137 Potassium 4.0 Chloride 99 Carbon Dioxide 32 BUN 20 H Creatinine 1.64 H Glucose 134 H Calcium 9.7 Medications Administered Current Inpatient Medications Albuterol (Duoneb) 3 ml INH Q4H PRN PRN Reason: Shortness Of Breath Or Wheezing Stop: 06/09/19 19:07 Albuterol (Ventolin Hfa) 2 puffs INH Q4H PRN; Protocol PRN Reason: Wheezing Stop: 06/09/19 19:07 Aspirin (Ecotrin Ectab) 81 mg PO [facility] Stop: 06/10/19 08:59 Last Admin: 05/13/19 08:04 Dose: 81 mg Documented by: Cyclobenzaprine HCl (Flexeril) 10 mg PO BID [facility] Stop: 06/09/19 20:59 Last Admin: 05/13/19 08:02 Dose: 10 mg Documented by: Dextrose (Dextrose 50%) 25 - 50 ml IV UD PRN; Protocol PRN Reason: Hypoglycemia Protocol Stop: 06/09/19 20:59 Docusate Sodium (Colace) 100 mg PO BID [facility] Stop: 06/09/19 20:59 Last Admin: 05/13/19 08:05 Dose: 100 mg Documented by: Duloxetine HCl (Cymbalta) 60 mg PO [facility] Stop: 06/10/19 08:59 Last Admin: 05/13/19 08:04 Dose: 60 mg Documented by: Finasteride (Proscar) 5 mg PO [facility] Stop: 06/10/19 08:59 Last Admin: 05/13/19 08:04 Dose: 5 mg Documented by: Fluticasone Propionate (Flonase) 2 sprays NA QAM [facility] Stop: 06/10/19 08:59 Last Admin: 05/13/19 08:06 Dose: 2 sprays Documented by: Gabapentin (Neurontin) 300 mg PO TID [facility] Stop: 06/09/19 20:59 Last Admin: 05/13/19 13:21 Dose: 300 mg Documented by: Glucagon (Glucagen) 1 mg SQ UD PRN; Protocol PRN Reason: Hypoglycemia Protocol Stop: 06/09/19 20:59 Glucose (Glucose 40%) 15 - 30 gm PO UD PRN; Protocol PRN Reason: Hypoglycemia Protocol Stop: 06/09/19 20:59 Glucose (Dex4 Glucose) 4 - 8 tabs PO UD PRN; Protocol PRN Reason: Hypoglycemia Protocol Stop: 06/09/19 20:59 Hydromorphone HCl (Dilaudid) 1 mg IV UD PRN PRN Reason: SEVERE Pain Stop: 05/24/19 17:53 Last Admin: 05/13/19 13:20 Dose: 1 mg Documented by: Hydroxyzine HCl (Vistaril) 25 mg PO QID PRN PRN Reason: Anxiety Stop: 06/09/19 19:07 Promethazine HCl 12.5 mg/ (Sodium Chloride) 50.5 mls @ 202 mls/hr IV Q6H PRN PRN Reason: Nausea And Vomiting Stop: 06/11/19 14:28 Last Infusion: 05/12/19 20:28 Dose: Infused Documented by: Insulin Aspart (Novolog Flexpen) 0 units SC ACHS [facility] Stop: 06/09/19 20:59 Last Admin: 05/13/19 12:42 Dose: 5 units Documented by: Isosorbide Mononitrate (Imdur Extended Rel) 30 mg PO QAM [facility] Stop: 06/11/19 08:59 Last Admin: 05/13/19 08:05 Dose: 30 mg Documented by: Lorazepam (Ativan) 1 mg PO Q12H PRN PRN Reason: anxiety Stop: 06/09/19 19:07 Magnesium Oxide (Mag-Ox) 400 mg PO BID [facility] Stop: 06/09/19 20:59 Last Admin: 05/13/19 08:05 Dose: 400 mg Documented by: Metoprolol Succinate (Toprol Xl) 50 mg PO BID [facility] Stop: 06/11/19 08:59 Last Admin: 05/13/19 08:04 Dose: 50 mg Documented by: Miscellaneous (Remove Nicoderm Patch) 1 ea N/A HS [facility] Stop: 06/10/19 20:59 Last Admin: 05/12/19 21:58 Dose: 1 ea Documented by: Miscellaneous (Carbohydrates For Hypoglycemia) 15 - 30 gm PO PRN PRN PRN Reason: Hypoglycemia Treatment Stop: 06/09/19 20:59 Morphine Sulfate (Ms Contin) 15 mg PO Q12 [facility] Stop: 05/24/19 20:59 Last Admin: 05/13/19 08:01 Dose: 15 mg Documented by: Nicotine (Nicoderm Cq) 21 mg TD QAM [facility] Stop: 06/10/19 08:59 Last Admin: 05/13/19 08:05 Dose: 21 mg Documented by: Nitroglycerin (Nitrostat) 0.4 mg SL UD PRN PRN Reason: CHEST PAIN Stop: 06/09/19 19:07 Last Admin: 05/13/19 03:46 Dose: 0.4 mg Documented by: Oxycodone HCl (Roxicodone Immediate Rel) 15 mg PO Q4H [facility] Stop: 05/24/19 19:59 Last Admin: 05/13/19 13:29 Dose: 15 mg Documented by: Pantoprazole Sodium (Protonix) 40 mg PO DAILY [facility]; Protocol Stop: 06/10/19 08:59 Last Admin: 05/13/19 08:05 Dose: 40 mg Documented by: Polyethylene Glycol (Miralax Powder Packet) 17 gm PO Q24H PRN PRN Reason: Constipation Stop: 06/09/19 19:07 Last Admin: 05/13/19 08:01 Dose: 17 gm Documented by: Sodium Biphosphate/Sodium Phosphate (Fleet Enema) 133 ml [place] UD PRN PRN Reason: Constipation Stop: 06/09/19 19:07 Spironolactone (Aldactone) 50 mg PO BID17 [facility] Stop: 06/09/19 19:59 Last Admin: 05/13/19 08:03 Dose: 50 mg Documented by: Tamsulosin HCl (Flomax) 0.4 mg PO DAILY [facility] Stop: 06/10/19 08:59 Last Admin: 05/13/19 08:03 Dose: 0.4 mg Documented by: Tiotropium [place] (Spiriva) 1 puffs INH DAILY [facility] Stop: 06/10/19 08:59 Last Admin: 05/13/19 08:05 Dose: 1 puffs Documented by: Torsemide (Demadex) 20 mg PO BID17 [facility] Stop: 06/09/19 19:59 Last Admin: 05/10/19 21:08 Dose: 20 mg Documented by: Torsemide (Demadex) 20 mg PO BID17 [facility] Stop: 06/11/19 16:59 Last Admin: 05/13/19 08:03 Dose: 20 mg Documented by: Tramadol HCl (Ultram) 50 mg PO Q4H PRN PRN Reason: Pain Stop: 06/09/19 19:07 Last Admin: 05/13/19 13:20 Dose: 50 mg Documented by: Warfarin Sodium (Coumadin) 7.5 mg PO DAILY@1600 [facility] Stop: 06/09/19 19:59 Last Admin: 05/12/19 17:24 Dose: 7.5 mg Documented by: (1) Chest pain Chest pain type: precordial pain Qualified Code(s): R07.2 - Precordial pain (2) Pulmonary embolism Pulmonary embolism type: unspecified Chronicity: chronic Acute cor pulmonale presence: without acute cor pulmonale Qualified Code(s): I27.82 - Chronic pulmonary embolism (3) COPD (chronic obstructive pulmonary disease) COPD type: emphysema Emphysema type: unspecified Qualified Code(s): J43.9 - Emphysema, unspecified
[2019-05-13] MEDS: PROMETHAZINE HCL 12.5 MG in SODIUM CHLORIDE 0.9% 50 ML IV PRN ×2 (13:55→22:09)
[2019-05-13] MEDS: WARFARIN SOD 7.5 MG TAB PO SCH (17:38)
[2019-05-13] MEDS: LORazepam 1 MG TAB PO PRN (21:10)
[2019-05-14] MEDS: OXYCODONE HCL IR 5 MG TAB (IMMEDIATE RELEASE) PO SCH ×6 (02:00→21:02)
[2019-05-14] MEDS: PROMETHAZINE HCL 12.5 MG in SODIUM CHLORIDE 0.9% 50 ML IV PRN ×3 (04:18→21:02)
[2019-05-14] MEDS: TRAMADOL HCL 50 MG TABLET PO PRN ×5 (04:18→21:30)
[2019-05-14 06:18] LABS: Basophils # (auto) 0.04 K/uL (0-0.2); Basophils % (auto) 0.4 %; Eosinophils # (auto) 0.36 K/uL (0-0.5); Eosinophils % (auto) 3.4 %; Hematocrit (blood only) 34.3 % (42-52); Hemoglobin 10.6 g/dL (14.0-18.0); Immature Granulocytes # (auto) 0.03 K/uL (0.00-0.02); Immature Granulocytes % (auto) 0.3 %; Lymphocytes # (auto) 1.85 K/uL (1.2-3.4); Lymphocytes % (auto) 17.7 %; Mean Corpuscular Hemoglobin 23.2 pg (25-34); Mean Corpuscular Hgb Conc 30.9 g/dL (32-36); Mean Corpuscular Volume 75.1 fL (80-100); Mean Platelet Volume 9.6 fL (7.4-10.4); Monocytes # (auto) 0.88 K/uL (0.11-0.59); Monocytes % (auto) 8.4 %; Neutrophils # (auto) 7.28 K/uL (1.4-6.5); Neutrophils % (auto) 69.8 %; Platelet Count 288 K/uL (130-400); RDW Coefficient of Variation 19.4 % (11.5-14.5); RDW Standard Deviation 52.7 fL (36.4-46.3); Red Blood Count 4.57 M/uL (4.7-6.1); White Blood Count 10.44 K/uL (4.8-10.8)
[2019-05-14 06:30] LABS: INR 1.5 (0.9-1.1); Prothrombin Time 15.4 Seconds (9.0-12.0)
[2019-05-14 06:51] LABS: BUN Creatinine Ratio 14.5 (10-20); Calcium 9.1 mg/dl (8.5-10.1); Creatinine Clr Calc Pharmacy 93.2 ml/min; Est GFR (African American) 53.7; Est GFR (Non-African American) 46.3; Magnesium 1.9 mg/dl (1.8-2.4); Potassium 3.8 mmol/L (3.5-5.1)
[2019-05-14] MEDS: MoRPHine SULFATE CR 15 MG TABCR PO SCH ×2 (08:43→21:02)
[2019-05-14] MEDS: HYDROmorphone INJ 1 MG/ML SYRINGE IV PRN ×2 (08:43→12:58)
[2019-05-14] MEDS: POLYETHYLENE (MIRALAX) 17 GM PACK PO PRN ×2 (08:44→21:31)
[2019-05-14] MEDS: TORSEMIDE 10 MG TAB PO SCH ×2 (08:44→18:07)
[2019-05-14] MEDS: ASPIRIN 81 MG ECTAB PO SCH (08:45)
[2019-05-14] MEDS: TAMSULOSIN HCL 0.4 MG CAP PO SCH (08:45)
[2019-05-14] MEDS: SPIRONOLACTONE 25 MG TAB PO SCH ×2 (08:45→18:07)
[2019-05-14] MEDS: METOPROLOL SUCC 50MG EXT REL TAB PO SCH ×2 (08:45→21:02)
[2019-05-14] MEDS: PANTOprazole 40 MG TAB PO SCH (08:45)
[2019-05-14] MEDS: ISOSORBIDE MONO EXTENDED REL 30 MG TABCR PO SCH (08:45)
[2019-05-14] MEDS: FINASTERIDE 5 MG TAB PO SCH (08:45)
[2019-05-14] MEDS: DULOXETINE HCL 60 MG CAP PO SCH (08:46)
[2019-05-14] MEDS: CYCLOBENZAPRINE HCL 10 MG TAB PO SCH ×2 (08:46→21:02)
[2019-05-14] MEDS: GABAPENTIN 300 MG CAP PO SCH ×3 (08:46→21:02)
[2019-05-14] MEDS: TIOTROPIUM BROMIDE 5 PUFF/90 MCG INH INH SCH (08:46)
[2019-05-14] MEDS: MAGNESIUM OXIDE 400 MG TAB PO SCH ×2 (08:46→21:02)
[2019-05-14] MEDS: DOCUSATE SODIUM 100 MG CAP PO SCH ×2 (08:46→21:02)
[2019-05-14] MEDS: FLUTICASONE PROPIONATE NA SPR 16 GM BTL SCH (08:46)
[2019-05-14] MEDS: NICOTINE 21 MG/24 HR TDSY TD SCH (08:47)
[2019-05-14] MEDS: INSULIN ASPART 100 UNITS/ML 3 ML PEN SC SCH ×4 (08:49→21:03)
--- NOTE | 2019-05-14 12:34 | Hospitalist Progress Note ---
Date of Service May 14, 2019 Assessment & Plan (1) Chest pain: Has been complaining of follow-up chest pain for the last few days Initial EKG and troponins unremarkable Will admit to telemetry observation with observation Serial cardiac enzymes and EKG to rule out ACS Add Nitropaste to control chest pain If ruled out, DSE tomorrow morning-canceled due to potential risk of inducing arrhythmias Cardiology consulted-appreciate input and recommendation Continues to have chest pain ISMO has been changed to IMDUR 30 mg once a day and beta-nasim has been increased Continues to have chest pain without any EKG and/or troponin changes We will not give any narcotics for chest pain, may use sublingual nitro as needed Chest pain is controlled (2) Palpitations: Has been complaining of palpitation since this morning Noted to have heart rate as high as 180 at home and also during transportation to the hospital No documentation of the heart rate and/or any tracings May have paroxysmal atrial tachycardia/fibrillation We will monitor in the telemetry unit-no tachycardia or tachyarrhythmias noted on monitor Complains to have transient palpitation without any evidence of tachyarrhythmias on monitor No documentation of rapid arrhythmias and monitor (3) Chronic diastolic CHF (congestive heart failure): Seems to be euvolemic Negative chest x-ray for any CHF We will continue current medications Remains controlled Has gained about 5 pounds since admission Creatinine has been elevated at 1.[address] Cardoza Monitor PRP and electrolytes Renal function is worsened and will be checked tomorrow MAHAMED Likely secondary to use of diuretics Will need to continue diuretics for chronic CHF with fluid overload Monitor PRP and electrolytes Creatinine is a little worse today (4) Indwelling Lloyd catheter present: History of recurrent urinary tract infection Has chronic Lloyd catheter in situ (5) Pulmonary embolism: History of pulmonary embolism Has been on Coumadin INR is 1.5 We will put him on heparin intravenously without any bolus Monitor INR-1.7 on 05/09 We will continue heparin and Coumadin for today INR has been more than 2 today and will discontinue heparin drip And it is 1.8 today, heparin has been discontinued INR decreased to 1.5 We will add 10 mg Coumadin tonight (6) COPD (chronic obstructive pulmonary disease): No acute exacerbation We will continue current medications (7) Depression with anxiety: No acute anxiety under confusion DVT prophylaxis Heparin plus Coumadin CODE STATUS Full (8) Chronic pain disorder: Has been under the care of pain therapist as an outpatient We will continue current dose of narcotics which includes MS Contin and MSIR and Ultram Need additional dose of intravenous Dilaudid while he starts physical therapy Pain therapy consulted-appreciate input and recommendation No increasing pain medications as per the instruction History of possible sleep apnea in past We will get nocturnal pulse oximetry Will need to have outpatient sleep study on discharge Subjective 05/11 Patient was seen and examined in telemetry unit He has been complaining of left ankle pain as he tripped over 1 of the toys of his grandson Denies any more chest pain Chronic pain seems to be controlled 05/12 Patient seen and examined in telemetry unit He continues to have chest pain and infected throughout the last night he has had chest pain He has been nitro and received a small dose of Dilaudid early this morning EKG and troponins remain unremarkable Complaints to have more pain at the back and the pain radiates to the legs and more ankle pain following recent trauma-without any x-ray abnormality 05/13 Patient was seen and examined in telemetry unit He has been complaining of ongoing chest pain with radiation to left upper extremity Repeated EKGs and cardiac enzymes have been negative so far Complaints to have bloating without any shortness of breath and/or desaturation 05/14 Patient is seen and examined in telemetry unit He has been complaining of bloated feeling but denies any increasing shortness of breath Still complains of chronic pain that has been increasing Denies any chest pain today Review of Systems Review of Systems: All systems reviewed and are unremarkable except as noted below Constitutional: + body aches and + fatigue Cardiovascular: + chest pain (Ongoing without any EKG and/or troponin change), + chest pain at rest and + radiating jaw, neck or arm pain Gastrointestinal: + bloating and + nausea; no abdominal pain Musculoskeletal: + back pain and + joint pain (Left ankle pain) Chronic right ankle pain and complaints to have more left ankle pain Physical Exam Physical Exam: Lying in bed comfortably Constitutional: well developed, well nourished and + morbidly obese; no acute distress Eyes: PERRL, conjunctivae normal, anicteric sclerae ENMT: external ear and nose normal, oropharynx normal Neck: trachea midline, no thyromegaly Respiratory: normal respiratory effort; no respiratory distress Auscultation: + diminished lung sounds and + crackles (Minimal crackles at the bases) Cardiovascular: Rate/Rhythm: regular rate and regular rhythm Heart Sounds: no murmur Extremities: + edema (1+ bilateral which is much improved compared with prior admission) Gastrointestinal (Abdomen): Inspection/Auscultation: + abdomen distended and normal bowel sounds Percussion/Palpation: abdomen soft; abdomen nontender Musculoskeletal: Left ankle pain on movement Neurologic: moves all extremities; no focal motor deficits Lymphatic: no cervical or axillary lymphadenopathy Results & Data Vital Signs (Past 12 Hours) Vital Signs Temp Pulse Resp BP BP Pulse Ox 05/14/19 11:27 37.2 C 81 22 129/76 93 05/14/19 07:41 36.6 C 74 18 124/80 94 05/14/19 03:05 36.6 C 75 20 108/74 91 Laboratory Results Short CBC 05/14/19 Range/Units 06:02 WBC 10.44 (4.8-10.8) K/uL Hgb 10.6 L (14.0-18.0) g/dL Hct 34.3 L (42-52) % Plt Count 288 (130-400) K/uL BMP 05/14/19 06:02 Sodium 136 Potassium 3.8 Chloride 99 Carbon Dioxide 31 BUN 25 H Creatinine 1.71 H Glucose 163 H Calcium 9.1 Medications Administered Current Inpatient Medications Albuterol (Duoneb) 3 ml INH Q4H PRN PRN Reason: Shortness Of Breath Or Wheezing Stop: 06/09/19 19:07 Albuterol (Ventolin Hfa) 2 puffs INH Q4H PRN; Protocol PRN Reason: Wheezing Stop: 06/09/19 19:07 Aspirin (Ecotrin Ectab) 81 mg PO QAM [facility] Stop: 06/10/19 08:59 Last Admin: 05/14/19 08:45 Dose: 81 mg Documented by: Cyclobenzaprine HCl (Flexeril) 10 mg PO BID [facility] Stop: 06/09/19 20:59 Last Admin: 05/14/19 08:46 Dose: 10 mg Documented by: Dextrose (Dextrose 50%) 25 - 50 ml IV UD PRN; Protocol PRN Reason: Hypoglycemia Protocol Stop: 06/09/19 20:59 Docusate Sodium (Colace) 100 mg PO BID [facility] Stop: 06/09/19 20:59 Last Admin: 05/14/19 08:46 Dose: 100 mg Documented by: Duloxetine HCl (Cymbalta) 60 mg PO [facility] Stop: 06/10/19 08:59 Last Admin: 05/14/19 08:46 Dose: 60 mg Documented by: Finasteride (Proscar) 5 mg PO QAM [facility] Stop: 06/10/19 08:59 Last Admin: 05/14/19 08:45 Dose: 5 mg Documented by: Fluticasone Propionate (Flonase) 2 sprays NA [facility] Stop: 06/10/19 08:59 Last Admin: 05/14/19 08:46 Dose: 2 sprays Documented by: Gabapentin (Neurontin) 300 mg PO TID [facility] Stop: 06/09/19 20:59 Last Admin: 05/14/19 08:46 Dose: 300 mg Documented by: Glucagon (Glucagen) 1 mg SQ UD PRN; Protocol PRN Reason: Hypoglycemia Protocol Stop: 06/09/19 20:59 Glucose (Glucose 40%) 15 - 30 gm PO UD PRN; Protocol PRN Reason: Hypoglycemia Protocol Stop: 06/09/19 20:59 Glucose (Dex4 Glucose) 4 - 8 tabs PO UD PRN; Protocol PRN Reason: Hypoglycemia Protocol Stop: 06/09/19 20:59 Hydromorphone HCl (Dilaudid) 1 mg IV UD PRN PRN Reason: SEVERE Pain Stop: 05/24/19 17:53 Last Admin: 05/14/19 08:43 Dose: 1 mg Documented by: Hydroxyzine HCl (Vistaril) 25 mg PO QID PRN PRN Reason: Anxiety Stop: 06/09/19 19:07 Promethazine HCl 12.5 mg/ (Sodium Chloride) 50.5 mls @ 202 mls/hr IV Q6H PRN PRN Reason: Nausea And Vomiting Stop: 06/11/19 14:28 Last Infusion: 05/14/19 11:48 Dose: Infused Documented by: Insulin Aspart (Novolog Flexpen) 0 units [facility] Stop: 06/09/19 20:59 Last Admin: 05/14/19 08:49 Dose: 6 units Documented by: Isosorbide Mononitrate (Imdur Extended Rel) 30 mg PO [facility] Stop: 06/11/19 08:59 Last Admin: 05/14/19 08:45 Dose: 30 mg Documented by: Lorazepam (Ativan) 1 mg PO Q12H PRN PRN Reason: anxiety Stop: 06/09/19 19:07 Last Admin: 05/13/19 21:10 Dose: 1 mg Documented by: Magnesium Oxide (Mag-Ox) 400 mg PO BID [facility] Stop: 06/09/19 20:59 Last Admin: 05/14/19 08:46 Dose: 400 mg Documented by: Metoprolol Succinate (Toprol Xl) 50 mg PO BID [facility] Stop: 06/11/19 08:59 Last Admin: 05/14/19 08:45 Dose: 50 mg Documented by: Miscellaneous (Remove Nicoderm Patch) 1 ea N/A HS [facility] Stop: 06/10/19 20:59 Last Admin: 05/13/19 21:11 Dose: Not Given Documented by: Miscellaneous (Carbohydrates For Hypoglycemia) 15 - 30 gm PO PRN PRN PRN Reason: Hypoglycemia Treatment Stop: 06/09/19 20:59 Morphine Sulfate (Ms Contin) 15 mg PO Q12 [facility] Stop: 05/24/19 20:59 Last Admin: 05/14/19 08:43 Dose: 15 mg Documented by: Nicotine (Nicoderm Cq) 21 mg TD QAM [facility] Stop: 06/10/19 08:59 Last Admin: 05/14/19 08:47 Dose: 21 mg Documented by: Nitroglycerin (Nitrostat) 0.4 mg SL UD PRN PRN Reason: CHEST PAIN Stop: 06/09/19 19:07 Last Admin: 05/13/19 03:46 Dose: 0.4 mg Documented by: Oxycodone HCl (Roxicodone Immediate Rel) 15 mg PO Q4H [facility] Stop: 05/24/19 19:59 Last Admin: 05/14/19 10:26 Dose: 15 mg Documented by: Pantoprazole Sodium (Protonix) 40 mg PO DAILY [facility]; Protocol Stop: 06/10/19 08:59 Last Admin: 05/14/19 08:45 Dose: 40 mg Documented by: Polyethylene Glycol (Miralax Powder Packet) 17 gm PO Q24H PRN PRN Reason: Constipation Stop: 06/09/19 19:07 Last Admin: 05/14/19 08:44 Dose: 17 gm Documented by: Sodium Biphosphate/Sodium Phosphate (Fleet Enema) 133 ml [place] UD PRN PRN Reason: Constipation Stop: 06/09/19 19:07 Spironolactone (Aldactone) 50 mg PO BID17 [facility] Stop: 06/09/19 19:59 Last Admin: 05/14/19 08:45 Dose: 50 mg Documented by: Tamsulosin HCl (Flomax) 0.4 mg PO DAILY [facility] Stop: 06/10/19 08:59 Last Admin: 05/14/19 08:45 Dose: 0.4 mg Documented by: Tiotropium [place] (Spiriva) 1 puffs INH DAILY [facility] Stop: 06/10/19 08:59 Last Admin: 05/14/19 08:46 Dose: 1 puffs Documented by: Torsemide (Demadex) 20 mg PO BID17 [facility] Stop: 06/09/19 19:59 Last Admin: 05/10/19 21:08 Dose: 20 mg Documented by: Torsemide (Demadex) 20 mg PO BID17 [facility] Stop: 06/11/19 16:59 Last Admin: 05/14/19 08:44 Dose: 20 mg Documented by: Tramadol HCl (Ultram) 50 mg PO Q4H PRN PRN Reason: Pain Stop: 06/09/19 19:07 Last Admin: 05/14/19 10:26 Dose: 50 mg Documented by: Warfarin Sodium (Coumadin) 10 mg PO DAILY@1600 [facility] Stop: 06/13/19 15:59 (1) Chest pain Chest pain type: precordial pain Qualified Code(s): R07.2 - Precordial pain (2) Pulmonary embolism Pulmonary embolism type: unspecified Chronicity: chronic Acute cor pulmonale presence: without acute cor pulmonale Qualified Code(s): I27.82 - Chronic pulmonary embolism (3) COPD (chronic obstructive pulmonary disease) COPD type: emphysema Emphysema type: unspecified Qualified Code(s): J43.9 - Emphysema, unspecified
[2019-05-14] MEDS ORDERED: LORazepam 0.5 MG/1 ML VIAL IV STA (15:58)
[2019-05-14] MEDS: LIDOCAINE 5% 1 PATCH TD SCH (16:35)
[2019-05-14] MEDS ORDERED: HYDROmorphone INJ 1 MG/ML SYRINGE IV STA (17:26)
[2019-05-14] MEDS: WARFARIN SOD 10 MG TAB PO SCH (18:06)
[2019-05-14] MEDS ORDERED: LORazepam 1 MG/2 ML VIAL IV STA (20:46)
[2019-05-15] MEDS: OXYCODONE HCL IR 5 MG TAB (IMMEDIATE RELEASE) PO SCH ×6 (03:07→21:44)
[2019-05-15] MEDS: TRAMADOL HCL 50 MG TABLET PO PRN ×5 (03:37→23:09)
[2019-05-15 06:28] LABS: INR 1.5 (0.9-1.1); Prothrombin Time 14.5 Seconds (9.0-12.0)
[2019-05-15 06:48] LABS: BUN Creatinine Ratio 14.7 (10-20); Calcium 9.2 mg/dl (8.5-10.1); Creatinine Clr Calc Pharmacy 89.1 ml/min; Est GFR (African American) 50.8; Est GFR (Non-African American) 43.8; Magnesium 2.1 mg/dl (1.8-2.4); Potassium 3.7 mmol/L (3.5-5.1)
[2019-05-15] MEDS: HYDROmorphone INJ 1 MG/ML SYRINGE IV PRN ×2 (08:15→13:12)
[2019-05-15] MEDS: ASPIRIN 81 MG ECTAB PO SCH (08:17)
[2019-05-15] MEDS: GABAPENTIN 300 MG CAP PO SCH ×3 (08:18→21:44)
[2019-05-15] MEDS: DOCUSATE SODIUM 100 MG CAP PO SCH ×2 (08:18→21:44)
[2019-05-15] MEDS: FINASTERIDE 5 MG TAB PO SCH (08:18)
[2019-05-15] MEDS: SPIRONOLACTONE 25 MG TAB PO SCH ×2 (08:18→16:30)
[2019-05-15] MEDS: PANTOprazole 40 MG TAB PO SCH (08:18)
[2019-05-15] MEDS: DULOXETINE HCL 60 MG CAP PO SCH (08:18)
[2019-05-15] MEDS: ISOSORBIDE MONO EXTENDED REL 30 MG TABCR PO SCH (08:18)
[2019-05-15] MEDS: MAGNESIUM OXIDE 400 MG TAB PO SCH ×2 (08:18→21:46)
[2019-05-15] MEDS: METOPROLOL SUCC 50MG EXT REL TAB PO SCH ×2 (08:18→21:44)
[2019-05-15] MEDS: LIDOCAINE 5% 1 PATCH TD SCH (08:19)
[2019-05-15] MEDS: TORSEMIDE 10 MG TAB PO SCH ×2 (08:19→16:31)
[2019-05-15] MEDS: CYCLOBENZAPRINE HCL 10 MG TAB PO SCH ×2 (08:19→21:44)
[2019-05-15] MEDS: FLUTICASONE PROPIONATE NA SPR 16 GM BTL SCH (08:20)
[2019-05-15] MEDS: NICOTINE 21 MG/24 HR TDSY TD SCH (08:20)
[2019-05-15] MEDS: TIOTROPIUM BROMIDE 5 PUFF/90 MCG INH INH SCH (08:21)
[2019-05-15] MEDS: MoRPHine SULFATE CR 15 MG TABCR PO SCH ×2 (08:31→21:45)
[2019-05-15] MEDS: INSULIN ASPART 100 UNITS/ML 3 ML PEN SC SCH ×4 (08:33→21:44)
[2019-05-15] MEDS: POLYETHYLENE (MIRALAX) 17 GM PACK PO PRN ×2 (08:37→21:45)
--- NOTE | 2019-05-15 09:12 | Cardiology Progress Note ---
Date of Service May 15, 2019 Assessment & Plan (1) Chest pain: No further recurrence with noncardiac chest discomfort by description. Patient on appropriate medical therapies (2) Palpitations: Metoprolol dose increased to 50 mg twice daily cont very high likelihood of DARIA, recommend outpatient eval (3) Chronic diastolic CHF (congestive heart failure): does not examine as volume overloaded, however, patient states that he feels "puffy" and would like a dose of IV lasix, will give cont po torsemide Renal function slightly higher than on admission., Single dose IV furosemide to be given. Dietary and fluid noncompliance once again an issue (4) Tobacco abuse: Still smoking at home. Has nicotine patch. Lungs with scattered wheezes notes uses an inhaler at home intermittently (5) Indwelling Lloyd catheter present: Draining clear yellow urine, recent UTI/urosepsis, doing well from the standpoint now. (6) Pulmonary embolism: cont coumadin Subjective Patient examined, chart medications, telemetry reviewed. Physical Exam Constitutional: + morbidly obese; no acute distress Neck: Neck thick no distinct jugular venous distention Respiratory: Auscultation: + diminished lung sounds Patient has scattered wheezes all lung hendrickson worse with forced cough Cardiovascular: Extremities: + edema (Chronic stasis changes and 1-2+ edema present) Regular rate and rhythm with distant heart sounds no audible murmur gallop Gastrointestinal (Abdomen): Obese, soft with large panniculus no palpable paraspinal megaly Genitourinary: Indwelling Lloyd catheter in place Results & Data Vital Signs (Past 12 Hours) Vital Signs Temp Pulse Pulse Resp BP Pulse Ox Pulse Ox 05/15/19 07:01 36.8 C 84 19 130/83 94 05/15/19 06:16 96 05/15/19 03:28 36.6 C 85 19 133/81 96 05/14/19 23:21 37.3 C 94 H 20 115/77 91 05/14/19 23:14 103 H Laboratory Results Laboratory Results - last 24 hr 05/14/19 05/14/19 05/14/19 11:52 16:18 20:23 PT INR Sodium Potassium Chloride Carbon Dioxide Anion Gap BUN Creatinine Est Cr Clr Drug Dosing Est GFR ( Amer) Est GFR (Non-Af Amer) BUN/Creatinine Ratio Glucose POC Glucose 169 H 138 H 152 H Calcium Magnesium 05/15/19 05/15/19 05/15/19 05:57 05:57 07:35 PT 14.5 H INR 1.5 H Sodium 137 Potassium 3.7 Chloride 97 L Carbon Dioxide 33 H Anion Gap 7.0 BUN 26 H Creatinine 1.79 H Est Cr Clr Drug Dosing 89.1 Est GFR ( Amer) 50.8 Est GFR (Non-Af Amer) 43.8 BUN/Creatinine Ratio 14.7 Glucose 132 H POC Glucose 136 H Calcium 9.2 Magnesium 2.1 Diagnostic Findings Telemetry without arrhythmia (1) Chest pain Chest pain type: precordial pain Qualified Code(s): R07.2 - Precordial pain (2) Pulmonary embolism Pulmonary embolism type: unspecified Chronicity: chronic Acute cor pulmonale presence: without acute cor pulmonale Qualified Code(s): I27.82 - Chronic pulmonary embolism
[2019-05-15] MEDS ORDERED: FUROSEMIDE 20 MG in SYRINGE 0 ML IV SCH (09:30)
[2019-05-15] MEDS: PROMETHAZINE HCL 12.5 MG in SODIUM CHLORIDE 0.9% 50 ML IV PRN ×2 (09:51→21:45)
[2019-05-15] MEDS ORDERED: BISACODYL 10 MG SUPP PR STA (10:03)
[2019-05-15] MEDS: TAMSULOSIN HCL 0.4 MG CAP PO SCH (10:37)
[2019-05-15] MEDS: ALBUTEROL HFA 8 GM INHALER INH PRN (11:24)
--- NOTE | 2019-05-15 15:52 | Hospitalist Progress Note ---
Date of Service May 15, 2019 Assessment & Plan (1) Chest pain: Has been complaining of follow-up chest pain for the last few days Initial EKG and troponins unremarkable Will admit to telemetry observation with observation Serial cardiac enzymes and EKG to rule out ACS Add Nitropaste to control chest pain If ruled out, DSE tomorrow morning-canceled due to potential risk of inducing arrhythmias Cardiology consulted-appreciate input and recommendation Continues to have chest pain ISMO has been changed to IMDUR 30 mg once a day and beta-nasim has been increased Continues to have chest pain without any EKG and/or troponin changes We will not give any narcotics for chest pain, may use sublingual nitro as needed Chest pain is controlled Chest pain is not cardiac and seems to be controlled now (2) Palpitations: Has been complaining of palpitation since this morning Noted to have heart rate as high as 180 at home and also during transportation to the hospital No documentation of the heart rate and/or any tracings May have paroxysmal atrial tachycardia/fibrillation We will monitor in the telemetry unit-no tachycardia or tachyarrhythmias noted on monitor Complains to have transient palpitation without any evidence of tachyarrhythmias on monitor No documentation of rapid arrhythmias and monitor (3) Chronic diastolic CHF (congestive heart failure): Seems to be euvolemic Negative chest x-ray for any CHF We will continue current medications Remains controlled Has gained about 5 pounds since admission Creatinine has been elevated at 1.[address] Cardoza Monitor PRP and electrolytes Renal function is worsened and will be checked tomorrow He received a dose of intravenous Lasix today MAHAMED Likely secondary to use of diuretics He has fluid overload at the same time kidney impairment We will give a small dose of Lasix intravenously today and monitor kidney function If improving and are stable he can be discharged home Will need to continue diuretics for chronic CHF with fluid overload Monitor PRP and electrolytes Creatinine is a little worse today (4) Indwelling Lloyd catheter present: History of recurrent urinary tract infection Has chronic Lloyd catheter in situ (5) Pulmonary embolism: History of pulmonary embolism Has been on Coumadin INR is 1.5 We will put him on heparin intravenously without any bolus Monitor INR-1.7 on 05/09 We will continue heparin and Coumadin for today INR has been more than 2 today and will discontinue heparin drip And it is 1.8 today, heparin has been discontinued INR decreased to 1.5 and remains at 1.5 on 05/15 We will add 10 mg Coumadin tonight again (6) COPD (chronic obstructive pulmonary disease): No acute exacerbation We will continue current medications (7) Depression with anxiety: No acute anxiety under confusion DVT prophylaxis Heparin plus Coumadin CODE STATUS Full (8) Chronic pain disorder: Has been under the care of pain therapist as an outpatient We will continue current dose of narcotics which includes MS Contin and MSIR and Ultram Need additional dose of intravenous Dilaudid while he starts physical therapy Pain therapy consulted-appreciate input and recommendation No increasing pain medications as per the instruction Discussed with pain therapist Dr. Cao will come and evaluate him tomorrow History of possible sleep apnea in past We will get nocturnal pulse oximetry Will need to have outpatient sleep study on discharge Subjective 05/11 Patient was seen and examined in telemetry unit He has been complaining of left ankle pain as he tripped over 1 of the toys of his grandson Denies any more chest pain Chronic pain seems to be controlled 05/12 Patient seen and examined in telemetry unit He continues to have chest pain and infected throughout the last night he has had chest pain He has been nitro and received a small dose of Dilaudid early this morning EKG and troponins remain unremarkable Complaints to have more pain at the back and the pain radiates to the legs and more ankle pain following recent trauma-without any x-ray abnormality 05/13 Patient was seen and examined in telemetry unit He has been complaining of ongoing chest pain with radiation to left upper extremity Repeated EKGs and cardiac enzymes have been negative so far Complaints to have bloating without any shortness of breath and/or desaturation 05/14 Patient is seen and examined in telemetry unit He has been complaining of bloated feeling but denies any increasing shortness of breath Still complains of chronic pain that has been increasing Denies any chest pain today 05/15 The patient was seen and examined in telemetry unit He has been complaining of nonspecific pain involving the back and bilateral lower posterior chest wall Feels otherwise weak and tired Review of Systems Review of Systems: All systems reviewed and are unremarkable except as noted below Constitutional: + body aches and + fatigue Respiratory: + cough and + wheezing Cardiovascular: + chest pain (Ongoing without any EKG and/or troponin change), + chest pain at rest and + radiating jaw, neck or arm pain Gastrointestinal: + bloating and + nausea; no abdominal pain Musculoskeletal: + back pain and + joint pain (Left ankle pain) Chronic right ankle pain and complaints to have more left ankle pain Physical Exam Physical Exam: Lying in bed comfortably and complains of pain at the back Constitutional: well developed, well nourished and + morbidly obese; no acute distress Eyes: PERRL, conjunctivae normal, anicteric sclerae ENMT: external ear and nose normal, oropharynx normal Neck: trachea midline, no thyromegaly Respiratory: normal respiratory effort; no respiratory distress Auscultation: + diminished lung sounds, + crackles (Minimal crackles at the bases) and + wheezes (Minimal wheezing bilaterally) Cardiovascular: Rate/Rhythm: regular rate and regular rhythm Heart Sounds: no murmur Extremities: + edema (1+ bilateral which is much improved compared with prior admission) Gastrointestinal (Abdomen): Inspection/Auscultation: + abdomen distended and normal bowel sounds Percussion/Palpation: abdomen soft; abdomen nontender Musculoskeletal: Has pain in the left ankle but no acute arthritis involving any joint Neurologic: moves all extremities; no focal motor deficits Lymphatic: no cervical or axillary lymphadenopathy Results & Data Vital Signs (Past 12 Hours) Vital Signs Temp Pulse Pulse Resp BP Pulse Ox Pulse Ox 05/15/19 15:29 36.9 C 83 19 115/78 93 05/15/19 11:31 36.7 C 88 18 118/80 92 05/15/19 09:22 79 05/15/19 07:01 36.8 C 84 19 130/83 94 05/15/19 06:16 96 Laboratory Results [facility] 05/15/19 05:57 Sodium 137 Potassium 3.7 Chloride 97 L Carbon Dioxide 33 H BUN 26 H Creatinine 1.79 H Glucose 132 H Calcium 9.2 Medications Administered Current Inpatient Medications Albuterol (Duoneb) 3 ml INH Q4H PRN PRN Reason: Shortness Of Breath Or Wheezing Stop: 06/09/19 19:07 Albuterol (Ventolin Hfa) 2 puffs INH Q4H PRN; Protocol PRN Reason: Wheezing Stop: 06/09/19 19:07 Last Admin: 05/15/19 11:24 Dose: 2 puffs Documented by: Aspirin (Ecotrin Ectab) 81 mg PO QAM EMPERATRIZ Stop: 06/10/19 08:59 Last Admin: 05/15/19 08:17 Dose: 81 mg Documented by: Cyclobenzaprine HCl (Flexeril) 10 mg PO BID [facility] Stop: 06/09/19 20:59 Last Admin: 05/15/19 08:19 Dose: 10 mg Documented by: Dextrose (Dextrose 50%) 25 - 50 ml IV UD PRN; Protocol PRN Reason: Hypoglycemia Protocol Stop: 06/09/19 20:59 Docusate Sodium (Colace) 100 mg PO BID [facility] Stop: 06/09/19 20:59 Last Admin: 05/15/19 08:18 Dose: 100 mg Documented by: Duloxetine HCl (Cymbalta) 60 mg PO QAM [facility] Stop: 06/10/19 08:59 Last Admin: 05/15/19 08:18 Dose: 60 mg Documented by: Finasteride (Proscar) 5 mg PO QAM [facility] Stop: 06/10/19 08:59 Last Admin: 05/15/19 08:18 Dose: 5 mg Documented by: Fluticasone Propionate (Flonase) 2 sprays NA QAM [facility] Stop: 06/10/19 08:59 Last Admin: 05/15/19 08:20 Dose: 2 sprays Documented by: Gabapentin (Neurontin) 300 mg PO TID [facility] Stop: 06/09/19 20:59 Last Admin: 05/15/19 14:11 Dose: 300 mg Documented by: Glucagon (Glucagen) 1 mg SQ UD PRN; Protocol PRN Reason: Hypoglycemia Protocol Stop: 06/09/19 20:59 Glucose (Glucose 40%) 15 - 30 gm PO UD PRN; Protocol PRN Reason: Hypoglycemia Protocol Stop: 06/09/19 20:59 Glucose (Dex4 Glucose) 4 - 8 tabs PO UD PRN; Protocol PRN Reason: Hypoglycemia Protocol Stop: 06/09/19 20:59 Hydromorphone HCl (Dilaudid) 1 mg IV UD PRN PRN Reason: SEVERE Pain Stop: 05/24/19 17:53 Last Admin: 05/15/19 13:12 Dose: 1 mg Documented by: Hydroxyzine HCl (Vistaril) 25 mg PO QID PRN PRN Reason: Anxiety Stop: 06/09/19 19:07 Promethazine HCl 12.5 mg/ (Sodium Chloride) 50.5 mls @ 202 mls/hr IV Q6H PRN PRN Reason: Nausea And Vomiting Stop: 06/11/19 14:28 Last Infusion: 05/15/19 10:11 Dose: Infused Documented by: Insulin Aspart (Novolog Flexpen) 0 units SC ACHS [facility] Stop: 06/09/19 20:59 Last Admin: 05/15/19 12:56 Dose: 7 units Documented by: Isosorbide Mononitrate (Imdur Extended Rel) 30 mg PO QAM [facility] Stop: 06/11/19 08:59 Last Admin: 05/15/19 08:18 Dose: 30 mg Documented by: Lidocaine (Lidoderm 5%) 1 patch TD QAM [facility] Stop: 06/13/19 15:44 Last Admin: 05/15/19 08:19 Dose: 1 patch Documented by: Lorazepam (Ativan) 1 mg PO Q12H PRN PRN Reason: anxiety Stop: 06/09/19 19:07 Last Admin: 05/13/19 21:10 Dose: 1 mg Documented by: Magnesium Oxide (Mag-Ox) 400 mg PO BID [facility] Stop: 06/09/19 20:59 Last Admin: 05/15/19 08:18 Dose: 400 mg Documented by: Metoprolol Succinate (Toprol Xl) 50 mg PO BID [facility] Stop: 06/11/19 08:59 Last Admin: 05/15/19 08:18 Dose: 50 mg Documented by: Miscellaneous (Remove Nicoderm Patch) 1 ea N/A HS [facility] Stop: 06/10/19 20:59 Last Admin: 05/14/19 21:14 Dose: Not Given Documented by: Miscellaneous (Carbohydrates For Hypoglycemia) 15 - 30 gm PO PRN PRN PRN Reason: Hypoglycemia Treatment Stop: 06/09/19 20:59 Miscellaneous (Remove Lidoderm Patch) 1 ea N/A DAILY@2100 [facility] Stop: 06/13/19 20:59 Last Admin: 05/14/19 21:14 Dose: 1 ea Documented by: Morphine Sulfate (Ms Contin) 15 mg PO Q12 [facility] Stop: 05/24/19 20:59 Last Admin: 05/15/19 08:31 Dose: 15 mg Documented by: Nicotine (Nicoderm Cq) 21 mg TD QAM [facility] Stop: 06/10/19 08:59 Last Admin: 05/15/19 08:20 Dose: 21 mg Documented by: Nitroglycerin (Nitrostat) 0.4 mg SL UD PRN PRN Reason: CHEST PAIN Stop: 06/09/19 19:07 Last Admin: 05/13/19 03:46 Dose: 0.4 mg Documented by: Oxycodone HCl (Roxicodone Immediate Rel) 15 mg PO Q4H [facility] Stop: 05/24/19 19:59 Last Admin: 05/15/19 14:11 Dose: 15 mg Documented by: Pantoprazole Sodium (Protonix) 40 mg PO DAILY [facility]; Protocol Stop: 06/10/19 08:59 Last Admin: 05/15/19 08:18 Dose: 40 mg Documented by: Polyethylene Glycol (Miralax Powder Packet) 17 gm PO Q24H PRN PRN Reason: Constipation Stop: 06/09/19 19:07 Last Admin: 05/15/19 08:37 Dose: 17 gm Documented by: Sodium Biphosphate/Sodium Phosphate (Fleet Enema) 133 ml MO UD PRN PRN Reason: Constipation Stop: 06/09/19 19:07 Spironolactone (Aldactone) 50 mg PO BID17 [facility] Stop: 06/09/19 19:59 Last Admin: 05/15/19 08:18 Dose: 50 mg Documented by: Tamsulosin HCl (Flomax) 0.4 mg PO DAILY [facility] Stop: 06/10/19 08:59 Last Admin: 05/15/19 10:37 Dose: 0.4 mg Documented by: Tiotropium Dovray (Spiriva) 1 puffs INH DAILY [facility] Stop: 06/10/19 08:59 Last Admin: 05/15/19 08:21 Dose: 1 puffs Documented by: Torsemide (Demadex) 20 mg PO BID17 [facility] Stop: 06/09/19 19:59 Last Admin: 05/10/19 21:08 Dose: 20 mg Documented by: Torsemide (Demadex) 20 mg PO BID17 [facility] Stop: 06/11/19 16:59 Last Admin: 05/15/19 08:19 Dose: 20 mg Documented by: Tramadol HCl (Ultram) 50 mg PO Q4H PRN PRN Reason: Pain Stop: 06/09/19 19:07 Last Admin: 05/15/19 14:11 Dose: 50 mg Documented by: Warfarin Sodium (Coumadin) 10 mg PO DAILY@1600 EMPERATRIZ Stop: 06/13/19 15:59 Last Admin: 05/14/19 18:06 Dose: 10 mg Documented by: (1) Chest pain Chest pain type: precordial pain Qualified Code(s): R07.2 - Precordial pain (2) Pulmonary embolism Pulmonary embolism type: unspecified Chronicity: chronic Acute cor pulmonale presence: without acute cor pulmonale Qualified Code(s): I27.82 - Chronic pulmonary embolism (3) COPD (chronic obstructive pulmonary disease) COPD type: emphysema Emphysema type: unspecified Qualified Code(s): J43.9 - Emphysema, unspecified
[2019-05-15] MEDS: WARFARIN SOD 10 MG TAB PO SCH (16:30)
[2019-05-15] MEDS ORDERED: LORazepam 0.5 MG/1 ML VIAL IV STA (19:56)
[2019-05-15] MEDS ORDERED: HYDROmorphone INJ 0.5 MG/0.5 ML SYR IV STA (21:53)
[2019-05-15] MEDS ORDERED: HYDROmorphone INJ 0.5 MG/0.5 ML SYR IV PRN (22:12)
[2019-05-16] MEDS: OXYCODONE HCL IR 5 MG TAB (IMMEDIATE RELEASE) PO SCH ×6 (03:11→22:07)
[2019-05-16] MEDS: TRAMADOL HCL 50 MG TABLET PO PRN ×4 (03:35→19:49)
[2019-05-16 07:04] LABS: INR 3.1 (0.9-1.1); Prothrombin Time 29.1 Seconds (9.0-12.0)
[2019-05-16 07:17] LABS: BUN Creatinine Ratio 14.5 (10-20); Calcium 9.1 mg/dl (8.5-10.1); Creatinine Clr Calc Pharmacy 93.2 ml/min; Est GFR (African American) 53.3; Magnesium 2.2 mg/dl (1.8-2.4); Potassium 3.6 mmol/L (3.5-5.1)
[2019-05-16] MEDS: MoRPHine SULFATE CR 15 MG TABCR PO SCH ×2 (08:38→21:06)
[2019-05-16] MEDS: HYDROmorphone INJ 1 MG/ML SYRINGE IV PRN ×2 (08:40→13:08)
[2019-05-16] MEDS: INSULIN ASPART 100 UNITS/ML 3 ML PEN SC SCH ×4 (08:48→21:11)
[2019-05-16] MEDS: METOPROLOL SUCC 50MG EXT REL TAB PO SCH ×2 (08:50→21:08)
[2019-05-16] MEDS: TAMSULOSIN HCL 0.4 MG CAP PO SCH (08:50)
[2019-05-16] MEDS: PANTOprazole 40 MG TAB PO SCH (08:50)
[2019-05-16] MEDS: FINASTERIDE 5 MG TAB PO SCH (08:51)
[2019-05-16] MEDS: NICOTINE 21 MG/24 HR TDSY TD SCH (08:51)
[2019-05-16] MEDS: GABAPENTIN 300 MG CAP PO SCH ×2 (08:53→15:38)
[2019-05-16] MEDS: DULOXETINE HCL 60 MG CAP PO SCH (08:53)
[2019-05-16] MEDS: DOCUSATE SODIUM 100 MG CAP PO SCH ×2 (08:53→21:04)
[2019-05-16] MEDS: CYCLOBENZAPRINE HCL 10 MG TAB PO SCH ×2 (08:54→21:04)
[2019-05-16] MEDS: ISOSORBIDE MONO EXTENDED REL 30 MG TABCR PO SCH (08:54)
[2019-05-16] MEDS: MAGNESIUM OXIDE 400 MG TAB PO SCH ×2 (08:55→21:06)
[2019-05-16] MEDS: FLUTICASONE PROPIONATE NA SPR 16 GM BTL SCH (08:55)
[2019-05-16] MEDS: ALBUTEROL HFA 8 GM INHALER INH PRN (08:55)
[2019-05-16] MEDS: SPIRONOLACTONE 25 MG TAB PO SCH ×2 (08:56→18:24)
[2019-05-16] MEDS: ASPIRIN 81 MG ECTAB PO SCH (08:56)
[2019-05-16] MEDS: TORSEMIDE 10 MG TAB PO SCH ×2 (08:56→18:25)
[2019-05-16] MEDS: LIDOCAINE 5% 1 PATCH TD SCH (08:57)
--- NOTE | 2019-05-16 09:28 | Pain Management Progress Note ---
Date of Service May 16, 2019 Subjective Mr. Milner is a 48 year old morbidly obese white male with chronic pain syndrome which is typically controlled with his current at home regimen of MS Contin 15mg BID, Oxycodone
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
[2019-05-16] MEDS: PROMETHAZINE HCL 12.5 MG in SODIUM CHLORIDE 0.9% 50 ML IV PRN ×2 (10:17→22:07)
[2019-05-16] MEDS: TIOTROPIUM BROMIDE 5 PUFF/90 MCG INH INH SCH (10:44)
--- NOTE | 2019-05-16 10:45 | Hospitalist Progress Note ---
Date of Service May 16, 2019 Assessment & Plan (1) Chest pain: Has been complaining of follow-up chest pain for the last few days Initial EKG and troponins unremarkable Will admit to telemetry observation with observation Serial cardiac enzymes and EKG to rule out ACS Add Nitropaste to control chest pain If ruled out, DSE tomorrow morning-canceled due to potential risk of inducing arrhythmias Cardiology consulted-appreciate input and recommendation Continues to have chest pain ISMO has been changed to IMDUR 30 mg once a day and beta-nasim has been increased Continues to have chest pain without any EKG and/or troponin changes We will not give any narcotics for chest pain, may use sublingual nitro as needed Chest pain is controlled Chest pain is not cardiac and seems to be controlled now (2) Palpitations: Has been complaining of palpitation since this morning Noted to have heart rate as high as 180 at home and also during transportation to the hospital No documentation of the heart rate and/or any tracings May have paroxysmal atrial tachycardia/fibrillation We will monitor in the telemetry unit-no tachycardia or tachyarrhythmias noted on monitor Complains to have transient palpitation without any evidence of tachyarrhythmias on monitor No documentation of rapid arrhythmias and monitor (3) Chronic diastolic CHF (congestive heart failure): Seems to be euvolemic Negative chest x-ray for any CHF We will continue current medications Remains controlled Has gained about 5 pounds since admission Creatinine has been elevated at 1.[address] Cardoza Monitor PRP and electrolytes Renal function is worsened and will be checked tomorrow He received a dose of intravenous Lasix today We will continue his usual doses of Lasix and spironolactone as an outpatient MAHAMED Likely secondary to use of diuretics He has fluid overload at the same time kidney impairment We will give a small dose of Lasix intravenously today and monitor kidney function If improving and are stable he can be discharged home Will need to continue diuretics for chronic CHF with fluid overload Monitor PRP and electrolytes Creatinine is a little worse today (4) Indwelling Lloyd catheter present: History of recurrent urinary tract infection Has chronic Lloyd catheter in situ (5) Pulmonary embolism: History of pulmonary embolism Has been on Coumadin INR is 1.5 We will put him on heparin intravenously without any bolus Monitor INR-1.7 on 05/09 We will continue heparin and Coumadin for today INR has been more than 2 today and will discontinue heparin drip And it is 1.8 today, heparin has been discontinued INR decreased to 1.5 and remains at 1.5 on 05/15 We will add 10 mg Coumadin tonight again INR is 3.1 today We will continue with the 7.5 mg Coumadin from this afternoon (6) COPD (chronic obstructive pulmonary disease): No acute exacerbation We will continue current medications Has some wheezing (7) Depression with anxiety: No acute anxiety under confusion DVT prophylaxis Heparin plus Coumadin CODE STATUS Full (8) Chronic pain disorder: Has been under the care of pain therapist as an outpatient We will continue current dose of narcotics which includes MS Contin and MSIR and Ultram Need additional dose of intravenous Dilaudid while he starts physical therapy Pain therapy consulted-appreciate input and recommendation No increasing pain medications as per the instruction Discussed with pain therapist Dr. Cao will come and evaluate him tomorrow Appreciate pain therapy input and recommendation More lidocaine patches were prescribed but additional narcotics when not advised History of possible sleep apnea in past We will get nocturnal pulse oximetry Will need to have outpatient sleep study on discharge Subjective 05/11 Patient was seen and examined in telemetry unit He has been complaining of left ankle pain as he tripped over 1 of the toys of his grandson Denies any more chest pain Chronic pain seems to be controlled 05/12 Patient seen and examined in telemetry unit He continues to have chest pain and infected throughout the last night he has had chest pain He has been nitro and received a small dose of Dilaudid early this morning EKG and troponins remain unremarkable Complaints to have more pain at the back and the pain radiates to the legs and more ankle pain following recent trauma-without any x-ray abnormality 05/13 Patient was seen and examined in telemetry unit He has been complaining of ongoing chest pain with radiation to left upper extremity Repeated EKGs and cardiac enzymes have been negative so far Complaints to have bloating without any shortness of breath and/or desaturation 05/14 Patient is seen and examined in telemetry unit He has been complaining of bloated feeling but denies any increasing shortness of breath Still complains of chronic pain that has been increasing Denies any chest pain today 05/15 The patient was seen and examined in telemetry unit He has been complaining of nonspecific pain involving the back and bilateral lower posterior chest wall Feels otherwise weak and tired 05/16 The patient was seen and examined in telemetry unit He complains to have increasing pain at the back and also bilaterally lower chest wall at the back He was seen by pain therapist and no additional narcotics were advised His shortness of breath has been decreased and denies any chest pain as of this morning Likely to be discharged tomorrow after lunch Review of Systems Review of Systems: All systems reviewed and are unremarkable except as noted below Constitutional: + body aches and + fatigue Respiratory: + cough and + wheezing Cardiovascular: + chest pain (Ongoing without any EKG and/or troponin change), + chest pain at rest and + radiating jaw, neck or arm pain Gastrointestinal: + bloating; no abdominal pain Musculoskeletal: + back pain and + joint pain (Left ankle pain) Chronic right ankle pain and complaints to have more left ankle pain Physical Exam Physical Exam: Lying in bed comfortably Constitutional: well developed, well nourished and + morbidly obese; no acute distress and not ill appearing Eyes: PERRL, conjunctivae normal, anicteric sclerae ENMT: external ear and nose normal, oropharynx normal Neck: trachea midline, no thyromegaly Respiratory: normal respiratory effort; no respiratory distress Auscultation: + diminished lung sounds, + crackles (Minimal crackles at the bases) and + wheezes (Almost gone) Cardiovascular: Rate/Rhythm: regular rate and regular rhythm Heart Sounds: no murmur Extremities: + edema (1+ bilateral which is much improved compared with prior admission) Gastrointestinal (Abdomen): Inspection/Auscultation: + abdomen distended and normal bowel sounds Percussion/Palpation: abdomen soft; abdomen nontender Neurologic: moves all extremities; no focal motor deficits Lymphatic: no cervical or axillary lymphadenopathy Results & Data Vital Signs (Past 12 Hours) Vital Signs Temp Pulse Pulse Resp BP Pulse Ox 05/16/19 07:20 77 05/16/19 06:38 36.7 C 80 19 107/69 93 05/16/19 03:16 36.5 C 80 19 135/81 95 05/15/19 23:37 37.3 C 90 20 121/72 93 Laboratory Results [facility] 05/16/19 06:06 Sodium 138 Potassium 3.6 Chloride 98 Carbon Dioxide 33 H BUN 25 H Creatinine 1.72 H Glucose 154 H Calcium 9.1 Medications Administered Current Inpatient Medications Albuterol (Duoneb) 3 ml INH Q4H PRN PRN Reason: Shortness Of Breath Or Wheezing Stop: 06/09/19 19:07 Albuterol (Ventolin Hfa) 2 puffs INH Q4H PRN; Protocol PRN Reason: Wheezing Stop: 06/09/19 19:07 Last Admin: 05/16/19 08:55 Dose: 2 puffs Documented by: Aspirin (Ecotrin Ectab) 81 mg PO QAM [facility] Stop: 06/10/19 08:59 Last Admin: 05/16/19 08:56 Dose: 81 mg Documented by: Cyclobenzaprine HCl (Flexeril) 10 mg PO BID [facility] Stop: 06/09/19 20:59 Last Admin: 05/16/19 08:54 Dose: 10 mg Documented by: Dextrose (Dextrose 50%) 25 - 50 ml IV UD PRN; Protocol PRN Reason: Hypoglycemia Protocol Stop: 06/09/19 20:59 Docusate Sodium (Colace) 100 mg PO BID [facility] Stop: 06/09/19 20:59 Last Admin: 05/16/19 08:53 Dose: 100 mg Documented by: [facility]ox[place] [facility] ([facility]ymbalta) [facility] [place]: 06/10/19 08:59 Last Admin: 05/16/19 08:53 Dose: 60 mg Documented by: Finasteride (Proscar) 5 mg PO QAM [facility] Stop: 06/10/19 08:59 Last Admin: 05/16/19 08:51 Dose: 5 mg Documented by: Fluticasone Propionate (Flonase) 2 [place]ays [place] [facility] [place]: 06/10/19 08:59 Last Admin: 05/16/19 08:55 Dose: 2 sprays Documented by: Gabapentin (Neurontin) 300 mg PO TID [facility] Stop: 06/09/19 20:59 Last Admin: 05/16/19 08:53 Dose: 300 mg Documented by: Glucagon (Glucagen) 1 mg SQ UD PRN; Protocol PRN Reason: Hypoglycemia Protocol Stop: 06/09/19 20:59 Glucose (Glucose 40%) 15 - 30 gm PO UD PRN; Protocol PRN Reason: Hypoglycemia Protocol Stop: 06/09/19 20:59 Glucose (Dex4 Glucose) 4 - 8 tabs PO UD PRN; Protocol PRN Reason: Hypoglycemia Protocol Stop: 06/09/19 20:59 Hydromorphone HCl (Dilaudid) 1 mg IV UD PRN PRN Reason: SEVERE Pain Stop: 05/24/19 17:53 Last Admin: 05/16/19 08:40 Dose: 1 mg Documented by: Hydroxyzine HCl (Vistaril) 25 mg PO QID PRN PRN Reason: Anxiety Stop: 06/09/19 19:07 Promethazine HCl 12.5 mg/ (Sodium Chloride) 50.5 mls @ 202 mls/hr IV Q6H PRN PRN Reason: Nausea And Vomiting Stop: 06/11/19 14:28 Last Infusion: 05/15/19 22:00 Dose: Infused Documented by: Insulin Aspart (Novolog Flexpen) 0 units SC ACHS [facility] Stop: 06/09/19 20:59 Last Admin: 05/16/19 08:48 Dose: 11 units Documented by: Isosorbide Mononitrate (Imdur Extended Rel) 30 mg PO QAM [facility] Stop: 06/11/19 08:59 Last Admin: 05/16/19 08:54 Dose: 30 mg Documented by: Lidocaine (Lidoderm 5%) 1 patch TD QAM [facility] Stop: 06/13/19 15:44 Last Admin: 05/16/19 08:57 Dose: 1 patch Documented by: Lorazepam (Ativan) 1 mg PO Q12H PRN PRN Reason: anxiety Stop: 06/09/19 19:07 Last Admin: 05/13/19 21:10 Dose: 1 mg Documented by: Magnesium Oxide (Mag-Ox) 400 mg PO BID [facility] Stop: 06/09/19 20:59 Last Admin: 05/16/19 08:55 Dose: 400 mg Documented by: Metoprolol Succinate (Toprol Xl) 50 mg PO BID [facility] Stop: 06/11/19 08:59 Last Admin: 05/16/19 08:50 Dose: 50 mg Documented by: Miscellaneous (Remove Nicoderm Patch) 1 ea N/A HS [facility] Stop: 06/10/19 20:59 Last Admin: 05/15/19 21:47 Dose: Not Given Documented by: Miscellaneous (Carbohydrates For Hypoglycemia) 15 - 30 gm PO PRN PRN PRN Reason: Hypoglycemia Treatment Stop: 06/09/19 20:59 Miscellaneous (Remove Lidoderm Patch) 1 ea N/A DAILY@2100 [facility] Stop: 06/13/19 20:59 Last Admin: 05/15/19 21:46 Dose: 1 ea Documented by: Morphine Sulfate (Ms Contin) 15 mg PO Q12 [facility] Stop: 05/24/19 20:59 Last Admin: 05/16/19 08:38 Dose: 15 mg Documented by: Nicotine (Nicoderm Cq) 21 mg TD QAM [facility] Stop: 06/10/19 08:59 Last Admin: 05/16/19 08:51 Dose: 21 mg Documented by: Nitroglycerin (Nitrostat) 0.4 mg SL UD PRN PRN Reason: CHEST PAIN Stop: 06/09/19 19:07 Last Admin: 05/13/19 03:46 Dose: 0.4 mg Documented by: Oxycodone HCl (Roxicodone Immediate Rel) 15 mg PO Q4H [facility] Stop: 05/24/19 19:59 Last Admin: 05/16/19 08:38 Dose: 15 mg Documented by: Pantoprazole Sodium (Protonix) 40 mg PO DAILY [facility]; Protocol Stop: 06/10/19 08:59 Last Admin: 05/16/19 08:50 Dose: 40 mg Documented by: Polyethylene Glycol (Miralax Powder Packet) 17 gm PO BID PRN PRN Reason: Constipation Stop: 06/09/19 19:07 Last Admin: 05/15/19 21:45 Dose: 17 gm Documented by: Sodium Biphosphate/Sodium Phosphate (Fleet Enema) 133 ml OH UD PRN PRN Reason: Constipation Stop: 06/09/19 19:07 Spironolactone (Aldactone) 50 mg PO BID17 [facility] Stop: 06/09/19 19:59 Last Admin: 05/16/19 08:56 Dose: 50 mg Documented by: Tamsulosin HCl (Flomax) 0.4 mg PO DAILY [facility] Stop: 06/10/19 08:59 Last Admin: 05/16/19 08:50 Dose: 0.4 mg Documented by: Tiotropium Isom (Spiriva) 1 puffs INH DAILY [facility] Stop: 06/10/19 08:59 Last Admin: 05/15/19 08:21 Dose: 1 puffs Documented by: Torsemide (Demadex) 20 mg PO BID17 [facility] Stop: 06/09/19 19:59 Last Admin: 05/10/19 21:08 Dose: 20 mg Documented by: Torsemide (Demadex) 20 mg PO BID17 [facility] Stop: 06/11/19 16:59 Last Admin: 05/16/19 08:56 Dose: 20 mg Documented by: Tramadol HCl (Ultram) 50 mg PO Q4H PRN PRN Reason: Pain Stop: 06/09/19 19:07 Last Admin: 05/16/19 03:35 Dose: 50 mg Documented by: Warfarin Sodium (Coumadin) 10 mg PO DAILY@1600 [facility] Stop: 06/13/19 15:59 Last Admin: 05/15/19 16:30 Dose: 10 mg Documented by: (1) Chest pain Chest pain type: precordial pain Qualified Code(s): R07.2 - Precordial pain (2) Pulmonary embolism Pulmonary embolism type: unspecified Chronicity: chronic Acute cor pulmonale presence: without acute cor pulmonale Qualified Code(s): I27.82 - Chronic pulmonary embolism (3) COPD (chronic obstructive pulmonary disease) COPD type: emphysema Emphysema type: unspecified Qualified Code(s): J43.9 - Emphysema, unspecified
[2019-05-16] MEDS: WARFARIN SOD 7.5 MG TAB PO SCH (16:40)
[2019-05-16] MEDS ORDERED: LORazepam 0.5 MG/1 ML VIAL IV STA (18:02)
[2019-05-16] MEDS ORDERED: MAGNESIUM HYDROXIDE SUSP 30 ML UDC PO ONE (18:05)
[2019-05-16] MEDS ORDERED: HYDROmorphone INJ 0.5 MG/0.5 ML SYR IV STA (21:01)
[2019-05-16] MEDS: GABAPENTIN 600 MG TAB PO SCH (21:06)
[2019-05-17] MEDS: OXYCODONE HCL IR 5 MG TAB (IMMEDIATE RELEASE) PO SCH ×6 (01:49→20:23)
[2019-05-17] MEDS: TRAMADOL HCL 50 MG TABLET PO PRN ×6 (02:11→21:27)
[2019-05-17 06:29] LABS: INR 4.7 (0.9-1.1); Prothrombin Time 42.9 Seconds (9.0-12.0)
[2019-05-17 06:46] LABS: BUN Creatinine Ratio 15.1 (10-20); Creatinine Clr Calc Pharmacy 104.8 ml/min; Est GFR (African American) 60.9; Est GFR (Non-African American) 52.6; Potassium 3.7 mmol/L (3.5-5.1)
[2019-05-17] MEDS: INSULIN ASPART 100 UNITS/ML 3 ML PEN SC SCH ×4 (08:31→20:28)
[2019-05-17] MEDS: FLUTICASONE PROPIONATE NA SPR 16 GM BTL SCH (08:35)
[2019-05-17] MEDS: TIOTROPIUM BROMIDE 5 PUFF/90 MCG INH INH SCH (08:36)
[2019-05-17] MEDS: ALBUTEROL HFA 8 GM INHALER INH PRN (08:36)
[2019-05-17] MEDS: ASPIRIN 81 MG ECTAB PO SCH (08:38)
[2019-05-17] MEDS: ISOSORBIDE MONO EXTENDED REL 30 MG TABCR PO SCH (08:38)
[2019-05-17] MEDS: FINASTERIDE 5 MG TAB PO SCH (08:38)
[2019-05-17] MEDS: PANTOprazole 40 MG TAB PO SCH (08:38)
[2019-05-17] MEDS: DULOXETINE HCL 60 MG CAP PO SCH (08:39)
[2019-05-17] MEDS: TORSEMIDE 10 MG TAB PO SCH (08:39)
[2019-05-17] MEDS: LIDOCAINE 5% 1 PATCH TD SCH (08:39)
[2019-05-17] MEDS: MAGNESIUM OXIDE 400 MG TAB PO SCH ×2 (08:39→20:24)
[2019-05-17] MEDS: SPIRONOLACTONE 25 MG TAB PO SCH ×2 (08:39→17:22)
[2019-05-17] MEDS: GABAPENTIN 300 MG CAP PO SCH ×2 (08:39→14:23)
[2019-05-17] MEDS: CYCLOBENZAPRINE HCL 10 MG TAB PO SCH ×2 (08:39→20:23)
[2019-05-17] MEDS: DOCUSATE SODIUM 100 MG CAP PO SCH ×2 (08:39→20:23)
[2019-05-17] MEDS: TAMSULOSIN HCL 0.4 MG CAP PO SCH (08:39)
[2019-05-17] MEDS: POLYETHYLENE (MIRALAX) 17 GM PACK PO PRN ×2 (08:41→19:53)
[2019-05-17] MEDS: MoRPHine SULFATE CR 15 MG TABCR PO SCH ×2 (08:41→20:23)
[2019-05-17] MEDS: NICOTINE 21 MG/24 HR TDSY TD SCH (08:41)
[2019-05-17] MEDS: METOPROLOL SUCC 50MG EXT REL TAB PO SCH ×2 (08:42→20:22)
[2019-05-17] MEDS: HYDROmorphone INJ 1 MG/ML SYRINGE IV PRN ×2 (08:42→13:03)
[2019-05-17] MEDS ORDERED: LORazepam 0.5 MG/1 ML VIAL IV STA (10:42)
[2019-05-17] MEDS ORDERED: FUROSEMIDE 80 MG in SYRINGE 0 ML IV ONE (11:15)
--- NOTE | 2019-05-17 15:19 | Hospitalist Progress Note ---
Date of Service May 17, 2019 Assessment & Plan (1) Chest pain: Has been complaining of follow-up chest pain for the last few days Initial EKG and troponins unremarkable Will admit to telemetry observation with observation Serial cardiac enzymes and EKG to rule out ACS Add Nitropaste to control chest pain If ruled out, DSE tomorrow morning-canceled due to potential risk of inducing arrhythmias Cardiology consulted-appreciate input and recommendation Continues to have chest pain ISMO has been changed to IMDUR 30 mg once a day and beta-nasim has been increased Continues to have chest pain without any EKG and/or troponin changes We will not give any narcotics for chest pain, may use sublingual nitro as needed Chest pain is controlled Chest pain is not cardiac and seems to be controlled now (2) Palpitations: Has been complaining of palpitation since this morning Noted to have heart rate as high as 180 at home and also during transportation to the hospital No documentation of the heart rate and/or any tracings May have paroxysmal atrial tachycardia/fibrillation We will monitor in the telemetry unit-no tachycardia or tachyarrhythmias noted on monitor Complains to have transient palpitation without any evidence of tachyarrhythmias on monitor No documentation of rapid arrhythmias and monitor (3) Chronic diastolic CHF (congestive heart failure): Seems to be euvolemic Negative chest x-ray for any CHF We will continue current medications Remains controlled Has gained about 5 pounds since admission Creatinine has been elevated at 1.[address] Cardoza Monitor PRP and electrolytes Renal function is worsened and will be checked tomorrow He received a dose of intravenous Lasix today We will continue his usual doses of Lasix and spironolactone as an outpatient More shortness of breath today with wheezing Gained 2.3 kg since yesterday We will give intravenous Lasix today Check PRP tomorrow and if stable he will be discharged home tomorrow MAHAMED Likely secondary to use of diuretics He has fluid overload at the same time kidney impairment We will give a small dose of Lasix intravenously today and monitor kidney function If improving and are stable he can be discharged home Will need to continue diuretics for chronic CHF with fluid overload Monitor PRP and electrolytes Creatinine is a little worse today (4) Indwelling Lloyd catheter present: History of recurrent urinary tract infection Has chronic Lloyd catheter in situ (5) Pulmonary embolism: History of pulmonary embolism Has been on Coumadin INR is 1.5 We will put him on heparin intravenously without any bolus Monitor INR-1.7 on 05/09 We will continue heparin and Coumadin for today INR has been more than 2 today and will discontinue heparin drip And it is 1.8 today, heparin has been discontinued INR decreased to 1.5 and remains at 1.5 on 05/15 We will add 10 mg Coumadin tonight again INR is 3.1 today We will continue with the 7.5 mg Coumadin from this afternoon INR is more than 4 today We will hold Coumadin this afternoon (6) COPD (chronic obstructive pulmonary disease): No acute exacerbation We will continue current medications Has some wheezing (7) Depression with anxiety: No acute anxiety under confusion DVT prophylaxis Heparin plus Coumadin CODE STATUS Full (8) Chronic pain disorder: Has been under the care of pain therapist as an outpatient We will continue current dose of narcotics which includes MS Contin and MSIR and Ultram Need additional dose of intravenous Dilaudid while he starts physical therapy Pain therapy consulted-appreciate input and recommendation No increasing pain medications as per the instruction Discussed with pain therapist Dr. Cao will come and evaluate him tomorrow Appreciate pain therapy input and recommendation More lidocaine patches were prescribed but additional narcotics when not advised History of possible sleep apnea in past We will get nocturnal pulse oximetry Will need to have outpatient sleep study on discharge Subjective 05/11 Patient was seen and examined in telemetry unit He has been complaining of left ankle pain as he tripped over 1 of the toys of his grandson Denies any more chest pain Chronic pain seems to be controlled 05/12 Patient seen and examined in telemetry unit He continues to have chest pain and infected throughout the last night he has had chest pain He has been nitro and received a small dose of Dilaudid early this morning EKG and troponins remain unremarkable Complaints to have more pain at the back and the pain radiates to the legs and more ankle pain following recent trauma-without any x-ray abnormality 05/13 Patient was seen and examined in telemetry unit He has been complaining of ongoing chest pain with radiation to left upper extremity Repeated EKGs and cardiac enzymes have been negative so far Complaints to have bloating without any shortness of breath and/or desaturation 05/14 Patient is seen and examined in telemetry unit He has been complaining of bloated feeling but denies any increasing shortness of breath Still complains of chronic pain that has been increasing Denies any chest pain today 05/15 The patient was seen and examined in telemetry unit He has been complaining of nonspecific pain involving the back and bilateral lower posterior chest wall Feels otherwise weak and tired 05/16 The patient was seen and examined in telemetry unit He complains to have increasing pain at the back and also bilaterally lower chest wall at the back He was seen by pain therapist and no additional narcotics were advised His shortness of breath has been decreased and denies any chest pain as of this morning Likely to be discharged tomorrow after lunch 05/17 The patient was seen and examined in telemetry unit He complains to have more shortness of breath with wheezing He has gained about 2.2 kg since since yesterday Also complains to have increasing pain Review of Systems Review of Systems: All systems reviewed and are unremarkable except as noted below Constitutional: + body aches and + fatigue Respiratory: + cough and + wheezing Cardiovascular: + chest pain (Ongoing without any EKG and/or troponin change), + chest pain at rest and + radiating jaw, neck or arm pain Gastrointestinal: + bloating; no abdominal pain Musculoskeletal: + back pain and + joint pain (Left ankle pain) Chronic right ankle pain and complaints to have more left ankle pain Physical Exam Physical Exam: Lying in bed with minimal shortness of breath and wheezing Constitutional: well developed, well nourished and + morbidly obese; no acute distress and not ill appearing Eyes: PERRL, conjunctivae normal, anicteric sclerae ENMT: external ear and nose normal, oropharynx normal Neck: trachea midline, no thyromegaly Respiratory: + respiratory distress (Minimal shortness of breath at rest) Auscultation: + diminished lung sounds, + crackles (Minimal crackles at the bases) and + wheezes (Almost gone) Cardiovascular: Rate/Rhythm: regular rate and regular rhythm Heart Sounds: no murmur Extremities: + edema (1+ bilateral which is much improved compared with prior admission) Gastrointestinal (Abdomen): Inspection/Auscultation: + abdomen distended and normal bowel sounds Percussion/Palpation: abdomen soft; abdomen nontender Neurologic: moves all extremities; no focal motor deficits Lymphatic: no cervical or axillary lymphadenopathy Results & Data Vital Signs (Past 12 Hours) Vital Signs Temp Pulse Pulse Resp BP BP Pulse Ox 05/17/19 12:20 36.5 C 81 16 122/81 93 05/17/19 07:26 81 05/17/19 07:15 36.5 C 82 18 107/65 93 05/17/19 03:36 36.5 C 82 20 122/79 91 Laboratory Results [facility] 05/17/19 05:49 Sodium 139 Potassium 3.7 Chloride 101 Carbon Dioxide 32 BUN 23 H Creatinine 1.54 H Glucose 142 H Calcium 9.0 Medications Administered Current Inpatient Medications Albuterol (Duoneb) 3 ml INH Q4H PRN PRN Reason: Shortness Of Breath Or Wheezing Stop: 06/09/19 19:07 Albuterol (Ventolin Hfa) 2 puffs INH Q4H PRN; Protocol PRN Reason: Wheezing Stop: 06/09/19 19:07 Last Admin: 05/17/19 08:36 Dose: 2 puffs Documented by: [facility]ir[facility] (Ecotrin Ectab) [facility] [place] Stop: 06/10/19 08:59 Last Admin: 05/17/19 08:38 Dose: 81 mg Documented by: Cyclobenzaprine HCl (Flexeril) 10 mg PO BID [facility] Stop: 06/09/19 20:59 Last Admin: 05/17/19 08:39 Dose: 10 mg Documented by: Dextrose (Dextrose 50%) 25 - 50 ml IV UD PRN; Protocol PRN Reason: Hypoglycemia Protocol Stop: 06/09/19 20:59 Docusate Sodium (Colace) 100 mg PO BID [facility] Stop: 06/09/19 20:59 Last Admin: 05/17/19 08:39 Dose: 100 mg Documented by: Duloxetine HCl (Cymbalta) 60 [facility] [place] Stop: 06/10/19 08:59 Last Admin: 05/17/19 08:39 Dose: 60 mg Documented by: Finasteride (Proscar) 5 mg PO QAM [facility] Stop: 06/10/19 08:59 Last Admin: 05/17/19 08:38 Dose: 5 mg Documented by: Fluticasone Propionate (Flonase) 2 sprays NA QAM [facility] Stop: 06/10/19 08:59 Last Admin: 05/17/19 08:35 Dose: 2 sprays Documented by: Gabapentin (Neurontin) 600 mg PO [facility] Stop: 06/15/19 20:59 Last Admin: 05/16/19 21:06 Dose: 600 mg Documented by: Gabapentin (Neurontin) 300 mg PO BID@0900,1400 [facility] Stop: 06/15/19 13:59 Last Admin: 05/17/19 14:23 Dose: 300 mg Documented by: Glucagon (Glucagen) 1 mg SQ UD PRN; Protocol PRN Reason: Hypoglycemia Protocol Stop: 06/09/19 20:59 Glucose (Glucose 40%) 15 - 30 gm PO UD PRN; Protocol PRN Reason: Hypoglycemia Protocol Stop: 06/09/19 20:59 Glucose (Dex4 Glucose) 4 - 8 tabs PO UD PRN; Protocol PRN Reason: Hypoglycemia Protocol Stop: 06/09/19 20:59 Hydromorphone HCl (Dilaudid) 1 mg IV UD PRN PRN Reason: SEVERE Pain Stop: 05/24/19 17:53 Last Admin: 05/17/19 13:03 Dose: 1 mg Documented by: Hydroxyzine HCl (Vistaril) 25 mg PO QID PRN PRN Reason: Anxiety Stop: 06/09/19 19:07 Promethazine HCl 12.5 mg/ (Sodium Chloride) 50.5 mls @ 202 mls/hr IV Q6H PRN PRN Reason: Nausea And Vomiting Stop: 06/11/19 14:28 Last Infusion: 05/16/19 22:38 Dose: Infused Documented by: Insulin Aspart (Novolog Flexpen) 0 units SC ACHS [facility] Stop: 06/09/19 20:59 Last Admin: 05/17/19 12:03 Dose: 11 units Documented by: Isosorbide Mononitrate (Imdur Extended Rel) 30 mg PO QAM [facility] Stop: 06/11/19 08:59 Last Admin: 05/17/19 08:38 Dose: 30 mg Documented by: Lidocaine (Lidoderm 5%) 1 patch TD QAM [facility] Stop: 06/13/19 15:44 Last Admin: 05/17/19 08:39 Dose: 1 patch Documented by: Lorazepam (Ativan) 1 mg PO Q12H PRN PRN Reason: anxiety Stop: 06/09/19 19:07 Last Admin: 05/13/19 21:10 Dose: 1 mg Documented by: Magnesium Oxide (Mag-Ox) 400 mg PO BID [facility] Stop: 06/09/19 20:59 Last Admin: 05/17/19 08:39 Dose: 400 mg Documented by: Metoprolol Succinate (Toprol Xl) 50 mg PO BID [facility] Stop: 06/11/19 08:59 Last Admin: 05/17/19 08:42 Dose: 50 mg Documented by: Miscellaneous (Remove Nicoderm Patch) 1 ea N/A HS [facility] Stop: 06/10/19 20:59 Last Admin: 05/16/19 21:08 Dose: Not Given Documented by: Miscellaneous (Carbohydrates For Hypoglycemia) 15 - 30 gm PO PRN PRN PRN Reason: Hypoglycemia Treatment Stop: 06/09/19 20:59 Miscellaneous (Remove Lidoderm Patch) 1 ea N/A DAILY@2100 [facility] Stop: 06/13/19 20:59 Last Admin: 05/16/19 21:07 Dose: 1 ea Documented by: Morphine Sulfate (Ms Contin) 15 mg PO Q12 [facility] Stop: 05/24/19 20:59 Last Admin: 05/17/19 08:41 Dose: 15 mg Documented by: Nicotine (Nicoderm Cq) 21 mg TD QAM [facility] Stop: 06/10/19 08:59 Last Admin: 05/17/19 08:41 Dose: 21 mg Documented by: Nitroglycerin (Nitrostat) 0.4 mg SL UD PRN PRN Reason: CHEST PAIN Stop: 06/09/19 19:07 Last Admin: 05/13/19 03:46 Dose: 0.4 mg Documented by: Oxycodone HCl (Roxicodone Immediate Rel) 15 mg PO Q4H [facility] Stop: 05/24/19 19:59 Last Admin: 05/17/19 14:23 Dose: 15 mg Documented by: Pantoprazole Sodium (Protonix) 40 mg PO DAILY [facility]; Protocol Stop: 06/10/19 08:59 Last Admin: 05/17/19 08:38 Dose: 40 mg Documented by: Polyethylene Glycol (Miralax Powder Packet) 17 gm PO BID PRN PRN Reason: Constipation Stop: 06/09/19 19:07 Last Admin: 05/17/19 08:41 Dose: 17 gm Documented by: Sodium Biphosphate/Sodium Phosphate (Fleet Enema) 133 ml UT UD PRN PRN Reason: Constipation Stop: 06/09/19 19:07 Spironolactone (Aldactone) 50 mg PO BID17 [facility] Stop: 06/09/19 19:59 Last Admin: 05/17/19 08:39 Dose: 50 mg Documented by: Tamsulosin HCl (Flomax) 0.4 mg PO DAILY [facility] Stop: 06/10/19 08:59 Last Admin: 05/17/19 08:39 Dose: 0.4 mg Documented by: Tiotropium [place] (Spiriva) 1 puffs INH DAILY [facility] Stop: 06/10/19 08:59 Last Admin: 05/17/19 08:36 Dose: 1 puffs Documented by: Torsemide (Demadex) 20 mg PO BID17 [facility] Stop: 06/09/19 19:59 Last Admin: 05/10/19 21:08 Dose: 20 mg Documented by: Torsemide (Demadex) 20 mg PO BID17 [facility] Stop: 06/11/19 16:59 Last Admin: 05/17/19 08:39 Dose: 20 mg Documented by: Tramadol HCl (Ultram) 50 mg PO Q4H PRN PRN Reason: Pain Stop: 06/09/19 19:07 Last Admin: 05/17/19 13:13 Dose: 50 mg Documented by: Warfarin Sodium (Coumadin) 7.5 mg PO DAILY@1600 [facility] Stop: 06/15/19 15:59 Last Admin: 05/16/19 16:40 Dose: 7.5 mg Documented by: (1) Chest pain Chest pain type: precordial pain Qualified Code(s): R07.2 - Precordial pain (2) Pulmonary embolism Pulmonary embolism type: unspecified Chronicity: chronic Acute cor pulmonale presence: without acute cor pulmonale Qualified Code(s): I27.82 - Chronic pulmonary embolism (3) COPD (chronic obstructive pulmonary disease) COPD type: emphysema Emphysema type: unspecified Qualified Code(s): J43.9 - Emphysema, unspecified
[2019-05-17] MEDS: PROMETHAZINE HCL 12.5 MG in SODIUM CHLORIDE 0.9% 50 ML IV PRN (15:45)
[2019-05-17] MEDS ORDERED: LORazepam 1 MG/2 ML VIAL IV STA (19:35)
[2019-05-17] MEDS: GABAPENTIN 600 MG TAB PO SCH (20:23)
[2019-05-18] MEDS: OXYCODONE HCL IR 5 MG TAB (IMMEDIATE RELEASE) PO SCH ×6 (00:35→21:55)
[2019-05-18] MEDS: DOCUSATE SODIUM/SENNA 50/8.6MG TAB PO SCH ×3 (00:45→20:45)
[2019-05-18] MEDS: PROMETHAZINE HCL 12.5 MG in SODIUM CHLORIDE 0.9% 50 ML IV PRN ×2 (01:14→22:23)
[2019-05-18] MEDS: TRAMADOL HCL 50 MG TABLET PO PRN ×6 (01:39→22:07)
[2019-05-18 06:19] LABS: INR 3.8 (0.9-1.1); Prothrombin Time 35.2 Seconds (9.0-12.0)
[2019-05-18 06:35] LABS: BUN Creatinine Ratio 13.6 (10-20); Calcium 9.6 mg/dl (8.5-10.1); Creatinine Clr Calc Pharmacy 108.3 ml/min; Est GFR (African American) 63.4; Est GFR (Non-African American) 54.7; Magnesium 2.4 mg/dl (1.8-2.4); Potassium 3.8 mmol/L (3.5-5.1)
[2019-05-18] MEDS: HYDROmorphone INJ 1 MG/ML SYRINGE IV PRN ×2 (08:00→13:11)
[2019-05-18] MEDS: INSULIN ASPART 100 UNITS/ML 3 ML PEN SC SCH ×4 (08:03→20:48)
[2019-05-18] MEDS: CYCLOBENZAPRINE HCL 10 MG TAB PO SCH ×2 (08:48→20:46)
[2019-05-18] MEDS: MoRPHine SULFATE CR 15 MG TABCR PO SCH ×2 (08:48→20:44)
[2019-05-18] MEDS: FINASTERIDE 5 MG TAB PO SCH (08:49)
[2019-05-18] MEDS: TAMSULOSIN HCL 0.4 MG CAP PO SCH (08:49)
[2019-05-18] MEDS: ASPIRIN 81 MG ECTAB PO SCH (08:49)
[2019-05-18] MEDS: SPIRONOLACTONE 25 MG TAB PO SCH ×2 (08:49→18:02)
[2019-05-18] MEDS: GABAPENTIN 300 MG CAP PO SCH ×2 (08:49→14:09)
[2019-05-18] MEDS: ISOSORBIDE MONO EXTENDED REL 30 MG TABCR PO SCH (08:49)
[2019-05-18] MEDS: MAGNESIUM OXIDE 400 MG TAB PO SCH ×2 (08:50→20:45)
[2019-05-18] MEDS: NICOTINE 21 MG/24 HR TDSY TD SCH (08:50)
[2019-05-18] MEDS: METOPROLOL SUCC 50MG EXT REL TAB PO SCH ×2 (08:50→20:47)
[2019-05-18] MEDS: DULOXETINE HCL 60 MG CAP PO SCH (08:50)
[2019-05-18] MEDS: PANTOprazole 40 MG TAB PO SCH (08:50)
[2019-05-18] MEDS: TIOTROPIUM BROMIDE 5 PUFF/90 MCG INH INH SCH (08:52)
[2019-05-18] MEDS: FLUTICASONE PROPIONATE NA SPR 16 GM BTL SCH (08:52)
[2019-05-18] MEDS: POLYETHYLENE (MIRALAX) 17 GM PACK PO PRN ×2 (08:58→20:56)
[2019-05-18] MEDS: LIDOCAINE 5% 1 PATCH TD SCH (08:59)
[2019-05-18] MEDS ORDERED: ALBUTEROL 0.083% NEBU SOLN 3 ML VIAL NEB STA (10:39)
--- NOTE | 2019-05-18 13:26 | XRay Report ---
XR chest 1V portable HISTORY: 48 years-old Male r/o CHF acute shortness of breath with concern for congestive heart failu re COMPARISON: Chest radiograph 05/10/2019 TECHNIQUE: Portable AP view of the chest FINDINGS: Cardiac silhouette is mildly enlarged, unchanged. Ill-defined left basilar opacities are unchanged márquez ggestive of probable atelectasis/prominent epicardial fat pad. No pneumothorax, pleural effusion or o vert pulmonary edema. Bones appear grossly intact. IMPRESSION: Cardiomegaly without acute process. The above report was generated using voice recognition software. It may contain grammatical, syntax o r spelling errors. Electronically signed by: Kem Apodaca M.D. 05/18/2019 1:25 PM
[2019-05-18] MEDS ORDERED: LORazepam 1 MG/2 ML VIAL IV STA (13:28)
--- NOTE | 2019-05-18 15:19 | Hospitalist Progress Note ---
Date of Service May 18, 2019 Assessment & Plan (1) Chest pain: Has been complaining of follow-up chest pain for the last few days Initial EKG and troponins unremarkable Will admit to telemetry observation with observation Serial cardiac enzymes and EKG to rule out ACS Add Nitropaste to control chest pain If ruled out, DSE tomorrow morning-canceled due to potential risk of inducing arrhythmias Cardiology consulted-appreciate input and recommendation Continues to have chest pain ISMO has been changed to IMDUR 30 mg once a day and beta-nasim has been increased Continues to have chest pain without any EKG and/or troponin changes We will not give any narcotics for chest pain, may use sublingual nitro as needed Chest pain is controlled Chest pain is not cardiac and seems to be controlled now No further cardiology work-up (2) Palpitations: Has been complaining of palpitation since this morning Noted to have heart rate as high as 180 at home and also during transportation to the hospital No documentation of the heart rate and/or any tracings May have paroxysmal atrial tachycardia/fibrillation We will monitor in the telemetry unit-no tachycardia or tachyarrhythmias noted on monitor Complains to have transient palpitation without any evidence of tachyarrhythmias on monitor No documentation of rapid arrhythmias and monitor No tachyarrhythmias on monitor (3) Chronic diastolic CHF (congestive heart failure): Seems to be euvolemic Negative chest x-ray for any CHF We will continue current medications Remains controlled Has gained about 5 pounds since admission Creatinine has been elevated at 1.[address] Cardoza Monitor PRP and electrolytes Renal function is worsened and will be checked tomorrow He received a dose of intravenous Lasix today We will continue his usual doses of Lasix and spironolactone as an outpatient More shortness of breath today with wheezing Gained 2.3 kg since yesterday We will give intravenous Lasix today Check PRP tomorrow and if stable he will be discharged home tomorrow Says gained a few pounds since yesterday Chest x-ray is negative for any acute CHF We will continue with his usual oral dose of diuretics Medically stable to go home MAHAMED Likely secondary to use of diuretics He has fluid overload at the same time kidney impairment We will give a small dose of Lasix intravenously today and monitor kidney function If improving and are stable he can be discharged home Will need to continue diuretics for chronic CHF with fluid overload Monitor PRP and electrolytes Creatinine is a little worse today (4) Indwelling Lloyd catheter present: History of recurrent urinary tract infection Has chronic Lloyd catheter in situ (5) Pulmonary embolism: History of pulmonary embolism Has been on Coumadin INR is 1.5 We will put him on heparin intravenously without any bolus Monitor INR-1.7 on 05/09 We will continue heparin and Coumadin for today INR has been more than 2 today and will discontinue heparin drip And it is 1.8 today, heparin has been discontinued INR decreased to 1.5 and remains at 1.5 on 05/15 We will add 10 mg Coumadin tonight again INR is 3.1 today We will continue with the 7.5 mg Coumadin from this afternoon INR is more than 4 today We will hold Coumadin this afternoon INR is more than 3 We will continue current dose of Coumadin (6) COPD (chronic obstructive pulmonary disease): No acute exacerbation We will continue current medications Has some wheezing (7) Depression with anxiety: No acute anxiety under confusion DVT prophylaxis Heparin plus Coumadin CODE STATUS Full (8) Chronic pain disorder: Has been under the care of pain therapist as an outpatient We will continue current dose of narcotics which includes MS Contin and MSIR and Ultram Need additional dose of intravenous Dilaudid while he starts physical therapy Pain therapy consulted-appreciate input and recommendation No increasing pain medications as per the instruction Discussed with pain therapist Dr. Cao will come and evaluate him tomorrow Appreciate pain therapy input and recommendation More lidocaine patches were prescribed but additional narcotics when not advised History of possible sleep apnea in past We will get nocturnal pulse oximetry Will need to have outpatient sleep study on discharge We will transfer the patient to medical floor Subjective 05/11 Patient was seen and examined in telemetry unit He has been complaining of left ankle pain as he tripped over 1 of the toys of his grandson Denies any more chest pain Chronic pain seems to be controlled 05/12 Patient seen and examined in telemetry unit He continues to have chest pain and infected throughout the last night he has had chest pain He has been nitro and received a small dose of Dilaudid early this morning EKG and troponins remain unremarkable Complaints to have more pain at the back and the pain radiates to the legs and more ankle pain following recent trauma-without any x-ray abnormality 05/13 Patient was seen and examined in telemetry unit He has been complaining of ongoing chest pain with radiation to left upper extremity Repeated EKGs and cardiac enzymes have been negative so far Complaints to have bloating without any shortness of breath and/or desaturation 05/14 Patient is seen and examined in telemetry unit He has been complaining of bloated feeling but denies any increasing shortness of breath Still complains of chronic pain that has been increasing Denies any chest pain today 05/15 The patient was seen and examined in telemetry unit He has been complaining of nonspecific pain involving the back and bilateral lower posterior chest wall Feels otherwise weak and tired 05/16 The patient was seen and examined in telemetry unit He complains to have increasing pain at the back and also bilaterally lower chest wall at the back He was seen by pain therapist and no additional narcotics were advised His shortness of breath has been decreased and denies any chest pain as of this morning Likely to be discharged tomorrow after lunch 05/17 The patient was seen and examined in telemetry unit He complains to have more shortness of breath with wheezing He has gained about 2.2 kg since since yesterday Also complains to have increasing pain 05/18 The patient was seen and examined in telemetry unit He has been complaining of generalized weakness, bloating, wheezing shortness of breath, and pain Says that he does not feel well to go home today He looks very anxious to Review of Systems Review of Systems: All systems reviewed and are unremarkable except as noted below Constitutional: + body aches and + fatigue Respiratory: + cough and + wheezing; no dyspnea Cardiovascular: + chest pain at rest and + radiating jaw, neck or arm pain Gastrointestinal: + bloating; no abdominal pain, no nausea and no vomiting Musculoskeletal: + back pain and + joint pain (Left ankle pain) Chronic right ankle pain and complaints to have more left ankle pain Physical Exam Physical Exam: Lying in bed comfortably with some audible wheezing Constitutional: well developed, well nourished and + morbidly obese; no acute distress and not ill appearing Eyes: PERRL, conjunctivae normal, anicteric sclerae ENMT: external ear and nose normal, oropharynx normal Neck: trachea midline, no thyromegaly Respiratory: + respiratory distress (Minimal wheezing at rest with cough) Auscultation: + diminished lung sounds, + crackles (Minimal crackles at the bases) and + wheezes (Almost gone) Cardiovascular: Rate/Rhythm: regular rate and regular rhythm Heart Sounds: no murmur Extremities: + edema (1+ bilateral which is much improved compared with prior admission) Gastrointestinal (Abdomen): Inspection/Auscultation: + abdomen distended and normal bowel sounds Percussion/Palpation: abdomen soft; abdomen nontender Musculoskeletal: Some pain involving both ankles right more than the left Neurologic: moves all extremities; no focal motor deficits Lymphatic: no cervical or axillary lymphadenopathy Results & Data Vital Signs (Past 12 Hours) Vital Signs Temp Pulse Resp BP BP Pulse Ox 05/18/19 11:38 36.9 C 88 20 114/76 92 05/18/19 11:13 86 18 93 05/18/19 07:08 37.1 C 87 20 102/66 91 05/18/19 04:55 36.9 C 89 22 134/71 92 Laboratory Results BMP 05/18/19 05:43 Sodium 137 Potassium 3.8 Chloride 99 Carbon Dioxide 33 H BUN 20 H Creatinine 1.49 H Glucose 138 H Calcium 9.6 Medications Administered Current Inpatient Medications Albuterol (Duoneb) 3 ml INH Q4H PRN PRN Reason: Shortness Of Breath Or Wheezing Stop: 06/09/19 19:07 Albuterol (Ventolin Hfa) 2 puffs INH Q4H PRN; Protocol PRN Reason: Wheezing Stop: 06/09/19 19:07 Last Admin: 05/17/19 08:36 Dose: 2 puffs Documented by: Aspirin (Ecotrin Ectab) 81 mg PO QAM [facility] Stop: 06/10/19 08:59 Last Admin: 05/18/19 08:49 Dose: 81 mg Documented by: Cyclobenzaprine HCl (Flexeril) 10 mg PO BID [facility] Stop: 06/09/19 20:59 Last Admin: 05/18/19 08:48 Dose: 10 mg Documented by: Dextrose (Dextrose 50%) 25 - 50 ml IV UD PRN; Protocol PRN Reason: Hypoglycemia Protocol Stop: 06/09/19 20:59 Duloxetine HCl (Cymbalta) 60 mg PO QAM [facility] Stop: 06/10/19 08:59 Last Admin: 05/18/19 08:50 Dose: 60 mg Documented by: Finasteride (Proscar) 5 mg PO QAM [facility] Stop: 06/10/19 08:59 Last Admin: 05/18/19 08:49 Dose: 5 mg Documented by: Fluticasone Propionate (Flonase) 2 sprays NA QAM [facility] Stop: 06/10/19 08:59 Last Admin: 05/18/19 08:52 Dose: 2 sprays Documented by: Gabapentin (Neurontin) 600 mg PO HS EMPERATRIZ Stop: 06/15/19 20:59 Last Admin: 05/17/19 20:23 Dose: 600 mg Documented by: Gabapentin (Neurontin) 300 mg PO BID@0900,1400 EMPERATRIZ Stop: 06/15/19 13:59 Last Admin: 05/18/19 14:09 Dose: 300 mg Documented by: Glucagon (Glucagen) 1 mg SQ UD PRN; Protocol PRN Reason: Hypoglycemia Protocol Stop: 06/09/19 20:59 Glucose (Glucose 40%) 15 - 30 gm PO UD PRN; Protocol PRN Reason: Hypoglycemia Protocol Stop: 06/09/19 20:59 Glucose (Dex4 Glucose) 4 - 8 tabs PO UD PRN; Protocol PRN Reason: Hypoglycemia Protocol Stop: 06/09/19 20:59 Hydromorphone HCl (Dilaudid) 1 mg IV UD PRN PRN Reason: SEVERE Pain Stop: 05/24/19 17:53 Last Admin: 05/18/19 13:11 Dose: 1 mg Documented by: Hydroxyzine HCl (Vistaril) 25 mg PO QID PRN PRN Reason: Anxiety Stop: 06/09/19 19:07 Promethazine HCl 12.5 mg/ (Sodium Chloride) 50.5 mls @ 202 mls/hr IV Q6H PRN PRN Reason: Nausea And Vomiting Stop: 06/11/19 14:28 Last Infusion: 05/18/19 01:30 Dose: Infused Documented by: Insulin Aspart (Novolog Flexpen) 0 units SC ACHS [facility] Stop: 06/09/19 20:59 Last Admin: 05/18/19 14:34 Dose: Not Given Documented by: Isosorbide Mononitrate (Imdur Extended Rel) 30 mg PO QAM [facility] Stop: 06/11/19 08:59 Last Admin: 05/18/19 08:49 Dose: 30 mg Documented by: Lidocaine (Lidoderm 5%) [facility] [place] [facility] [place]: 06/13/19 15:44 Last Admin: 05/18/19 08:59 Dose: Not Given Documented by: Lorazepam (Ativan) 1 mg PO Q12H PRN PRN Reason: anxiety Stop: 06/09/19 19:07 Last Admin: 05/13/19 21:10 Dose: 1 mg Documented by: Magnesium Oxide (Mag-Ox) 400 mg PO BID [facility] Stop: 06/09/19 20:59 Last Admin: 05/18/19 08:50 Dose: 400 mg Documented by: Metoprolol Succinate (Toprol Xl) 50 mg PO BID [facility] Stop: 06/11/19 08:59 Last Admin: 05/18/19 08:50 Dose: 50 mg Documented by: Miscellaneous (Remove Nicoderm Patch) 1 ea N/A HS [facility] Stop: 06/10/19 20:59 Last Admin: 05/17/19 20:25 Dose: Not Given Documented by: Miscellaneous (Carbohydrates For Hypoglycemia) 15 - 30 gm PO PRN PRN PRN Reason: Hypoglycemia Treatment Stop: 06/09/19 20:59 Miscellaneous (Remove Lidoderm Patch) 1 ea N/A DAILY@2100 [facility] Stop: 06/13/19 20:59 Last Admin: 05/17/19 20:24 Dose: 1 ea Documented by: Morphine Sulfate (Ms Contin) 15 mg PO Q12 [facility] Stop: 05/24/19 20:59 Last Admin: 05/18/19 08:48 Dose: 15 mg Documented by: Nicotine (Nicoderm Cq) 21 mg TD QAM [facility] Stop: 06/10/19 08:59 Last Admin: 05/18/19 08:50 Dose: 21 mg Documented by: Nitroglycerin (Nitrostat) 0.4 mg SL UD PRN PRN Reason: CHEST PAIN Stop: 06/09/19 19:07 Last Admin: 05/13/19 03:46 Dose: 0.4 mg Documented by: Oxycodone HCl (Roxicodone Immediate Rel) 15 mg PO Q4H [facility] Stop: 05/24/19 19:59 Last Admin: 05/18/19 14:07 Dose: 15 mg Documented by: Pantoprazole Sodium (Protonix) 40 mg PO DAILY [facility]; Protocol Stop: 06/10/19 08:59 Last Admin: 05/18/19 08:50 Dose: 40 mg Documented by: Polyethylene Glycol (Miralax Powder Packet) 17 gm PO BID PRN PRN Reason: Constipation Stop: 06/09/19 19:07 Last Admin: 05/18/19 08:58 Dose: 17 gm Documented by: Senna/Docusate Sodium (Senokot S) 1 tab PO BID [facility] Stop: 06/17/19 00:44 Last Admin: 05/18/19 08:50 Dose: 1 tab Documented by: Sodium Biphosphate/Sodium Phosphate (Fleet Enema) 133 ml TX UD PRN PRN Reason: Constipation Stop: 06/09/19 19:07 Spironolactone (Aldactone) 50 mg PO BID17 [facility] Stop: 06/09/19 19:59 Last Admin: 05/18/19 08:49 Dose: 50 mg Documented by: Tamsulosin HCl (Flomax) 0.4 mg PO DAILY [facility] Stop: 06/10/19 08:59 Last Admin: 05/18/19 08:49 Dose: 0.4 mg Documented by: Tiotropium [place] (Spiriva) 1 puffs INH DAILY [facility] Stop: 06/10/19 08:59 Last Admin: 05/18/19 08:52 Dose: 1 puffs Documented by: Torsemide (Demadex) 20 mg PO BID17 [facility] Stop: 06/09/19 19:59 Last Admin: 05/10/19 21:08 Dose: 20 mg Documented by: Torsemide (Demadex) 20 mg PO BID17 [facility] Stop: 06/11/19 16:59 Last Admin: 05/17/19 08:39 Dose: 20 mg Documented by: Tramadol HCl (Ultram) 50 mg PO Q4H PRN PRN Reason: Pain Stop: 06/09/19 19:07 Last Admin: 05/18/19 14:40 Dose: 50 mg Documented by: Warfarin Sodium (Coumadin) 7.5 mg PO DAILY@1600 [facility] Stop: 06/15/19 15:59 Last Admin: 05/16/19 16:40 Dose: 7.5 mg Documented by: (1) Chest pain Chest pain type: precordial pain Qualified Code(s): R07.2 - Precordial pain (2) Pulmonary embolism Pulmonary embolism type: unspecified Chronicity: chronic Acute cor pulmonale presence: without acute cor pulmonale Qualified Code(s): I27.82 - Chronic pulmonary embolism (3) COPD (chronic obstructive pulmonary disease) COPD type: emphysema Emphysema type: unspecified Qualified Code(s): J43.9 - Emphysema, unspecified
[2019-05-18] MEDS: WARFARIN SOD 7.5 MG TAB PO SCH (16:01)
[2019-05-18] MEDS: TORSEMIDE 10 MG TAB PO SCH ×2 (17:34→18:02)
[2019-05-18] MEDS: GABAPENTIN 600 MG TAB PO SCH (20:46)
[2019-05-18] MEDS: LORazepam 1 MG TAB PO PRN (21:20)
[2019-05-19] MEDS: OXYCODONE HCL IR 5 MG TAB (IMMEDIATE RELEASE) PO SCH ×6 (01:58→21:31)
[2019-05-19] MEDS: TRAMADOL HCL 50 MG TABLET PO PRN ×5 (02:23→21:31)
[2019-05-19] MEDS: PROMETHAZINE HCL 12.5 MG in SODIUM CHLORIDE 0.9% 50 ML IV PRN ×3 (04:59→18:34)
[2019-05-19 06:25] LABS: INR 2.5 (0.9-1.1); Prothrombin Time 23.7 Seconds (9.0-12.0)
[2019-05-19 06:49] LABS: BUN Creatinine Ratio 13.5 (10-20); Calcium 9.2 mg/dl (8.5-10.1); Creatinine Clr Calc Pharmacy 93.6 ml/min; Est GFR (African American) 52.9; Est GFR (Non-African American) 45.7
[2019-05-19] MEDS: TORSEMIDE 10 MG TAB PO SCH ×3 (08:37→15:54)
[2019-05-19] MEDS: SPIRONOLACTONE 25 MG TAB PO SCH ×2 (08:48→15:53)
[2019-05-19] MEDS: DULOXETINE HCL 60 MG CAP PO SCH (08:49)
[2019-05-19] MEDS: CYCLOBENZAPRINE HCL 10 MG TAB PO SCH ×2 (08:49→21:16)
[2019-05-19] MEDS: MAGNESIUM OXIDE 400 MG TAB PO SCH ×2 (08:49→21:16)
[2019-05-19] MEDS: TAMSULOSIN HCL 0.4 MG CAP PO SCH (08:49)
[2019-05-19] MEDS: FINASTERIDE 5 MG TAB PO SCH (08:50)
[2019-05-19] MEDS: ASPIRIN 81 MG ECTAB PO SCH (08:50)
[2019-05-19] MEDS: ISOSORBIDE MONO EXTENDED REL 30 MG TABCR PO SCH (08:50)
[2019-05-19] MEDS: TIOTROPIUM BROMIDE 5 PUFF/90 MCG INH INH SCH (08:50)
[2019-05-19] MEDS: DOCUSATE SODIUM/SENNA 50/8.6MG TAB PO SCH ×2 (08:50→21:17)
[2019-05-19] MEDS: PANTOprazole 40 MG TAB PO SCH (08:50)
[2019-05-19] MEDS: GABAPENTIN 300 MG CAP PO SCH ×2 (08:50→14:08)
[2019-05-19] MEDS: METOPROLOL SUCC 50MG EXT REL TAB PO SCH ×2 (08:51→19:44)
[2019-05-19] MEDS: LIDOCAINE 5% 1 PATCH TD SCH (08:52)
[2019-05-19] MEDS: NICOTINE 21 MG/24 HR TDSY TD SCH (08:52)
[2019-05-19] MEDS: HYDROmorphone INJ 1 MG/ML SYRINGE IV PRN ×2 (08:53→12:59)
[2019-05-19] MEDS: MoRPHine SULFATE CR 15 MG TABCR PO SCH ×2 (08:53→21:16)
[2019-05-19] MEDS: FLUTICASONE PROPIONATE NA SPR 16 GM BTL SCH (08:53)
[2019-05-19] MEDS: INSULIN ASPART 100 UNITS/ML 3 ML PEN SC SCH ×4 (08:53→21:19)
[2019-05-19] MEDS: POLYETHYLENE (MIRALAX) 17 GM PACK PO PRN (08:53)
--- NOTE | 2019-05-19 09:49 | Hospitalist Progress Note ---
Date of Service May 19, 2019 Assessment & Plan (1) Chest pain: (1) Chest pain: ACS ruled out Supervisor [employer] consulted ISMO has been changed to IMDUR 30 mg once a day and beta-nasim has been increased No further cardiology work-up (2) Palpitations: no tachycardia or tachyarrhythmias noted on monitor may benefit from outpatient cardiac monitoring (3) Chronic diastolic CHF (congestive heart failure) Possible Acute on Chronic Diastolic CHF weight trending up crea also increased to 1.7 Worm Grower consulted MAHAMED W[employer] Grower consulted (4) Indwelling Lloyd catheter present: History of recurrent urinary tract infection Has chronic Lloyd catheter in situ (5) Pulmonary embolism: INR 2.5 continue coumadin INR daily (6) COPD (chronic obstructive pulmonary disease): with mild exacerbation, from CHF? CXR: no pneumonia start Solumedrol 60mg q8h continue Nebs q4h monitor (7) Depression with anxiety: No acute anxiety under confusion (8) Chronic pain disorder: pain management consulted continue analgesics at this time DVT prophylaxis Heparin plus Coumadin CODE STATUS Full Disposition pending Subjective ff up for chest pain seen sitting up in bed, comfortable, not in distress states he has wheezing today, associated with dry cough has mild chest discomfort on the anterior chest wall no dizziness, nausea/vomiting, palpitations no other symptoms Review of Systems Review of Systems: All systems reviewed & are unremarkable except as noted in HPI & below Physical Exam Physical Exam: General- oriented x 3, not in distress, speaks in sentences with no effort or accessory muscle use Head- atraumatic Eyes- PERRL, EOMI, anicteric ENT- oropharynx clear Neck- supple, no JVD, no adenopathy, no thyromegaly; carotids +2/2, no bruits appreciated Lungs- (+) scattered wheezing bilaterally Heart- normal rate, regular rhythm; no murmur, no gallop, no rub appreciated Abdomen- normal bowel sounds, nondistended, soft, nontender, no masses or hepatosplenomegaly Extremities- mild lower leg edema, no calf tenderness; peripheral pulses intact Neuro- alert, oriented x 3; CN 2-12 grossly intact; motor 5/5 bilaterally;sensation 100% on all extremities; no other gross focal neurologic deficits Skin- warm & dry Results & Data Vital Signs (Past 12 Hours) Vital Signs Temp Pulse Resp BP BP Pulse Ox 05/19/19 07:43 36.8 C 61 16 126/81 95 05/18/19 23:27 36.8 C 88 18 100/66 93 Laboratory Results Laboratory Results - last 24 hr 05/18/19 05/19/19 05/19/19 20:16 05:04 05:48 PT 23.7 H INR 2.5 H Sodium Potassium Chloride Carbon Dioxide Anion Gap BUN Creatinine Est Cr Clr Drug Dosing Est GFR ( Amer) Est GFR (Non-Af Amer) BUN/Creatinine Ratio Glucose POC Glucose 126 H 130 H Calcium 05/19/19 05/19/19 05:48 08:03 PT INR Sodium 136 Potassium 4.0 Chloride 99 Carbon Dioxide 31 Anion Gap 6.0 BUN 23 H Creatinine 1.73 H Est Cr Clr Drug Dosing 93.6 Est GFR ( Amer) 52.9 Est GFR (Non-Af Amer) 45.7 BUN/Creatinine Ratio 13.5 Glucose 158 H POC Glucose 157 H Calcium 9.2 (1) Chest pain Chest pain type: precordial pain Qualified Code(s): R07.2 - Precordial pain
[2019-05-19] MEDS ORDERED: methylPREDNISolone 60 MG in SYRINGE 0 ML IV ONE (10:00)
[2019-05-19] MEDS: LEVALBUTEROL 1.25MG/0.5ML NEB INH SCH ×3 (10:00→19:26)
[2019-05-19] MEDS ORDERED: XOPENEX/ATROVENT 1.25mg/0.5MG NEB COMBO NEB SCH (10:00)
[2019-05-19] MEDS: IPRATROPIUM BROMIDE NEB SOLN 0.02% 2.5 ML VIAL INH SCH ×3 (10:00→22:33)
--- NOTE | 2019-05-19 10:02 | XRay Report ---
XR chest 1V portable CLINICAL HISTORY: wheezing dyspnea COMPARISON STUDY: 05/18/2019 FINDINGS: Mild stable cardiomegaly. Unchanged pleural reactive change lateral aspect left base. Lungs otherwise appear clear. IMPRESSION: Chronic change. No acute process. Unchanging atelectasis/pleural thickening left base la terally The above report was generated using voice recognition software. It may contain grammatical, syntax or spelling errors. Electronically signed by: Owen Flowers M.D. 05/19/2019 10:01 AM
[2019-05-19] MEDS: WARFARIN SOD 7.5 MG TAB PO SCH (15:52)
[2019-05-19] MEDS ORDERED: SODIUM CHLORIDE 0.65% NA SOLN 45 ML (OCEAN) ONE (17:00)
[2019-05-19] MEDS ORDERED: PHARMACY GLYCEMIC MGMT CONSULT PRN (17:08)
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
[2019-05-19] MEDS ORDERED: INSULIN GLARGINE SOLOSTAR 100 UNITS/ML 3 ML PEN SC ONE (17:30)
[2019-05-19] MEDS: methylPREDNISolone 60 MG in SYRINGE 0 ML IV SCH (17:50)
[2019-05-19] MEDS: FUROSEMIDE 40 MG in SYRINGE 0 ML IV SCH (18:33)
[2019-05-19 20:24] LABS: Base Excess ABG 3.2 mEq/L (-9-1.8); HCO3 ABG 28 mmol/L (19-24); PCO2 ABG 43 mmHg (35-46); PO2 ABG 58 mm/Hg (80-95); pH ABG 7.43 (7.35-7.45)
[2019-05-19 20:25] LABS: Allen Test Pos (Pos)
[2019-05-19 20:56] LABS: BUN Creatinine Ratio 12.8 (10-20); Calcium 10.1 mg/dl (8.5-10.1); Creatinine Clr Calc Pharmacy 81.5 ml/min; Est GFR (African American) 44.4; Est GFR (Non-African American) 38.3; Magnesium 1.8 mg/dl (1.8-2.4); Potassium 4.1 mmol/L (3.5-5.1)
[2019-05-19] MEDS ORDERED: MAGNESIUM SULFATE / D5W 1 GM/100 ML BAG IV ONE (21:15)
[2019-05-19 21:45] LABS: Beta-Hydroxybutyrate 0.95 mg/dl (0.2-2.81)
[2019-05-19] MEDS: GABAPENTIN 600 MG TAB PO SCH (21:45)
[2019-05-19 21:55] LABS: Appearance Urine Turbid (Clear); Bacteria Urine Automated 4+ (Negative); Bilirubin Urine Negative (Negative); Blood Urine 1+ (Negative); Color Urine Yellow; Epithelial Cell Urine Auto >30 /lpf (0-5); Glucose Urine UA Negative (Negative); Ketones Urine Negative (Negative); Leukocyte Esterase Urine 3+ (Negative); Nitrite Urine Positive (Negative); Protein Urine Negative (Negative); Specific Gravity Urine 1.015 (1.000-1.030); Urobilinogen Urine Negative (Negative); WBC Urine Automated >30 /hpf (0-5)
[2019-05-20] MEDS: methylPREDNISolone 60 MG in SYRINGE 0 ML IV SCH ×4 (00:38→21:36)
[2019-05-20] MEDS: LEVALBUTEROL 1.25MG/0.5ML NEB INH SCH ×7 (00:54→22:33)
[2019-05-20] MEDS ORDERED: INSULIN ASPART 100 UNITS/ML 3 ML PEN SC SCH ×2 (02:00→16:30)
[2019-05-20] MEDS: OXYCODONE HCL IR 5 MG TAB (IMMEDIATE RELEASE) PO SCH ×6 (02:05→21:45)
[2019-05-20] MEDS: TRAMADOL HCL 50 MG TABLET PO PRN ×5 (02:31→18:30)
[2019-05-20] MEDS: IPRATROPIUM BROMIDE NEB SOLN 0.02% 2.5 ML VIAL INH SCH ×7 (03:20→22:33)
[2019-05-20] MEDS ORDERED: methylPREDNISolone 60 MG in SYRINGE 0 ML IV SCH (05:15)
[2019-05-20] MEDS: FUROSEMIDE 40 MG in SYRINGE 0 ML IV SCH (05:55)
[2019-05-20] MEDS: PROMETHAZINE HCL 12.5 MG in SODIUM CHLORIDE 0.9% 50 ML IV PRN ×2 (06:30→13:37)
[2019-05-20 07:44] LABS: BUN Creatinine Ratio 17.1 (10-20); Calcium 9.5 mg/dl (8.5-10.1); Creatinine Clr Calc Pharmacy 100.7 ml/min; Est GFR (African American) 57.3; Est GFR (Non-African American) 49.4; Potassium 4.3 mmol/L (3.5-5.1)
[2019-05-20] MEDS ORDERED: INSULIN GLARGINE SOLOSTAR 100 UNITS/ML 3 ML PEN SC ONE (09:00)
[2019-05-20] MEDS: INSULIN ASPART 100 UNITS/ML 3 ML PEN SC SCH ×4 (09:15→21:39)
[2019-05-20] MEDS: MoRPHine SULFATE CR 15 MG TABCR PO SCH ×2 (09:15→21:36)
[2019-05-20] MEDS: FINASTERIDE 5 MG TAB PO SCH (09:16)
[2019-05-20] MEDS: CYCLOBENZAPRINE HCL 10 MG TAB PO SCH ×2 (09:17→21:36)
[2019-05-20] MEDS: LIDOCAINE 5% 1 PATCH TD SCH (09:18)
[2019-05-20] MEDS: DULOXETINE HCL 60 MG CAP PO SCH (09:19)
[2019-05-20] MEDS: ISOSORBIDE MONO EXTENDED REL 30 MG TABCR PO SCH (09:20)
[2019-05-20] MEDS: ASPIRIN 81 MG ECTAB PO SCH (09:20)
[2019-05-20] MEDS: SPIRONOLACTONE 25 MG TAB PO SCH ×2 (09:20→16:37)
[2019-05-20] MEDS: NICOTINE 21 MG/24 HR TDSY TD SCH (09:21)
[2019-05-20] MEDS: MAGNESIUM OXIDE 400 MG TAB PO SCH ×2 (09:22→21:34)
[2019-05-20] MEDS: METOPROLOL SUCC 50MG EXT REL TAB PO SCH ×2 (09:23→21:37)
[2019-05-20] MEDS: TAMSULOSIN HCL 0.4 MG CAP PO SCH (09:23)
[2019-05-20] MEDS: TIOTROPIUM BROMIDE 5 PUFF/90 MCG INH INH SCH (09:24)
[2019-05-20] MEDS: FLUTICASONE PROPIONATE NA SPR 16 GM BTL SCH (09:25)
[2019-05-20] MEDS: GABAPENTIN 100 MG CAP PO SCH ×3 (09:25→21:35)
[2019-05-20] MEDS: PANTOprazole 40 MG TAB PO SCH (09:26)
[2019-05-20] MEDS: DOCUSATE SODIUM/SENNA 50/8.6MG TAB PO SCH ×2 (09:27→09:43)
[2019-05-20] MEDS: POLYETHYLENE (MIRALAX) 17 GM PACK PO PRN (09:44)
--- NOTE | 2019-05-20 11:09 | Pharmacy Report ---
Glycemic Control Consultation - Date of Service May 20, 2019 - Scope Scope: Glycemic Pharmacist consulted by Dr Clark on 05/19/19 for glycemic control and to write orders per [facility] inpatient glycemic control protocol - Objective Weight: 202.7 kg Accuchecks BSG (last 24hrs): 05/19/19 05/19/19 05/19/19 16:48 16:49 19:56 Glucose 305 H* POC Glucose 306 H* 281 H 05/19/19 05/20/19 05/20/19 20:19 01:54 06:20 Glucose 244 H POC Glucose 289 H 256 H 05/20/19 07:43 Glucose POC Glucose 281 H Laboratory Data (last 24hrs): 05/19/19 05/20/19 19:56 06:20 Potassium 4.1 4.3 Carbon Dioxide 28 29 Anion Gap 7.0 6.0 Creatinine 2.00 H 1.62 H D Est Cr Clr Drug Dosing 81.5 100.7 Beta-Hydroxybutyric Acd 0.95 - Recent Pertinent Medications Outpatient Anti-diabetic Regimen: * none * A1c = 7.4 % 04/25/19 The patient is currently receiving: * Basal insulin: Lantus 30 units every 12 hours * Correctional Insulin: Novolog Correction per scale ACHS Goal Range: Low 110 mg/dL - High 140 mg/dL Correction Factor: 15 mg/dL/unit * Prandial insulin: Per carb ratio of 1 unit per 4 grams CHO consumed Risk Factors for Insulin Resistance: * Steroids: solu medrol 60 mg IV q8h * Diet: T2DM - Assessment & Plan Assessment & Plan: ASSESSMENT: * 48 yr old male admitted on 05/10/19 with chest pain and acute kidney injury. He developed severe hyperglycemia on 05/19 due to addition of IV steroids for ongoing wheezing/respiratory issues. There is no mention of h/o DM in H&P and patient does not report any anti-diabetic medications on home med list, however A1c of 7.2% meets diagnosis for diabetes. * Pt will be started on weight based dosing of basal + bolus insulin. Aggressive dosing (AdjBW + stress 3) has been selected due to high dose IV steroids. PLAN FOR INPATIENT GLYCEMIC CONTROL: * Basal insulin * Lantus 30 units SQ this morning, then per scale: * 12 units for BSG less than 140 mg/dL * 20 units for BSG 140 - 200 mg/dL * 30 units for BSG greater than 200 mg/dL * Bolus insulin - tighten carb coverage * NovoLog per scale ACHS or Q6hrs while NPO * Goal Range: Low 110 mg/dL - High 140 mg/dL * Correction Factor: 15 mg/dL/unit * Nutritional / Prandial insulin per carb ratio of 1 unit per 4 grams CHO consumed * Please note that the plan above was derived based on current level of insulin resistance and hospital stress. These recommendations are appropriate for inpatient admission only. Plan of care upon discharge will need to be reassessed to avoid potential outpatient hypo/hyperglycemia. Thank you.
[2019-05-20] MEDS: HYDROmorphone INJ 1 MG/ML SYRINGE IV PRN ×2 (12:58→17:10)
[2019-05-20] MEDS ORDERED: PIPERACILL/TAZOBAC CONSULT ACTIVE PRN (14:56)
[2019-05-20] MEDS ORDERED: PIPERACILLIN/TAZOBACTAM 4.5 GM in DEXTROSE 5% 100 ML IV ONE (15:00)
[2019-05-20] MEDS ORDERED: cefTRIAXone SODIUM 2,000 MG in DEXTROSE 5% 50 ML IV SCH (15:00)
[2019-05-20 15:39] LABS: Prothrombin Time 28.2 Seconds (9.0-12.0)
--- NOTE | 2019-05-20 15:39 | Hospitalist Progress Note ---
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 ISMO has been changed to IMDUR 30 mg once a day and beta-nasim has been increased No further cardiology work-up (2) Palpitations: no tachycardia or tachyarrhythmias noted on monitor may benefit from outpatient cardiac monitoring (3) Chronic diastolic CHF (congestive heart failure) Possible Acute on Chronic Diastolic CHF weight trending up crea also increased to 1.7 Manager Heavy Duty consulted - Lasix IV started decreased to 20mg q12h today crea improved to 1.6 monitor MAHAMED Manager Heavy Duty consulted (4) Indwelling Lloyd catheter present: History of recurrent urinary tract infection Has chronic Lloyd catheter in situ -- Urine culture: gram negative bacilli will start empiric Zosyn given past Enterococcus, E coli ff up final urine culture (5) Pulmonary embolism: INR 3.0 hold coumadin for today INR daily (6) COPD (chronic obstructive pulmonary disease): with mild exacerbation, from CHF? CXR: no pneumonia improving Solumedrol 60mg q8h continue Nebs q4h monitor Zosyn started for UTI (7) Depression with anxiety: No acute anxiety under confusion (8) Chronic pain disorder: pain management consulted continue analgesics at this time DVT prophylaxis inr 3.0 coumadin being titrated CODE STATUS Full Disposition pending Subjective ff up for chest pain, volume overload seen with RN Moriah at the bedside resting in bed, not n distress reports severe b/l flank pain, constant denies nausea/vomiting, suprapubic pain still has cough, intermittently productive, scant sputum no dyspnea no chest pain no other symptoms Review of Systems Review of Systems: All systems reviewed & are unremarkable except as noted in HPI & below Physical Exam Physical Exam: General- oriented x 3, not in distress, speaks in sentences with no effort or accessory muscle use Eyes- anicteric Neck- no JVD Lungs- mild rales b/l bases no wheezing good air entry bilaterally Heart- normal rate, regular rhythm; no murmurs Abdomen- normal bowel sounds, nondistended, soft, nontender (+) possible cva tenderness Extremities- mild lower leg edema, no calf tenderness Neuro- alert, oriented x 3; no gross focal neurologic deficits Skin- warm & dry Results & Data Vital Signs (Past 12 Hours) Vital Signs Temp Pulse Resp BP Pulse Ox 05/20/19 14:53 36.6 C 93 H 20 125/71 93 05/20/19 11:29 36.6 C 89 16 123/68 92 05/20/19 07:09 36.4 C L 94 H 20 142/77 H 92 05/20/19 07:01 84 18 91 05/20/19 04:30 92 05/20/19 04:18 36.4 C L 85 18 124/81 89 L (1) Chest pain Chest pain type: precordial pain Qualified Code(s): R07.2 - Precordial pain
--- NOTE | 2019-05-20 15:45 | CT Scan Report ---
CT abd pelvis wo con CLINICAL HISTORY: 48 years-old Male presenting with bilateral flank pain, UTI. TECHNIQUE: Multidetector CT of the abdomen and pelvis was performed without the use of intravenous co ntrast. IV contrast: None. One or more dose lowering techniques were used consistent with the princip les of ALARA (as low as reasonably achievable), including automatic exposure control, mA or kV adjust ment to individual patient size, and/or use of iterative reconstruction. COMPARISON: 04/25/2019. CT DOSE (mGy.cm): The estimated cumulative dose is 2179.55 mGy.cm. FINDINGS: Cylinder Tester topogram: Unremarkable. Lung bases: Normal heart size. No pericardial or pleural effusion. Minimal dependent changes likely a telectasis. Liver: Normal morphology. Density consistent with hepatic steatosis. Biliary: No gross biliary ductal dilatation allowing for noncontrast technique. Gallbladder decompres sed. Pancreas: Moderate parenchymal atrophy. Spleen: Normal noncontrast appearance. Adrenal glands: Normal noncontrast appearance. Kidneys and ureters: Resolution of prior infiltrative changes asymmetrically at the left kidney. Norm al noncontrast appearance of the renal parenchyma. Nonobstructing calculus in the right kidney as on prior exam. No hydronephrosis. Ureters nondistended. Bladder: Decompressed with a Lloyd catheter. Pelvic organs: Normal noncontrast appearance. Bowel: Moderate stool burden throughout normal caliber colon. Post surgical changes of appendectomy. No bowel obstruction. Peritoneal cavity: No free fluid or intraperitoneal gas. Lymph nodes: No gross lymphadenopathy allowing for noncontrast technique. Vasculature: Normal noncontrast appearance. Abdominal wall: Normal. Musculoskeletal: Possible avascular necrosis of the bilateral femoral heads without evidence of corti shelbi collapse. IMPRESSION: 1. Allowing for noncontrast technique, no acute intra-abdominal pathology. 2. Resolution of prior inflammatory changes surrounding the left kidney likely indicating resolved p rior pyelonephritis. 3. Nonobstructing right nephrolithiasis. No ureteral calculus or hydronephrosis. 4. Hepatic steatosis. 5. Bilateral osteonecrosis of the femoral heads without cortical collapse similar to prior exam. Electronically signed by: Joey Merida M.D. 05/20/2019 3:43 PM
[2019-05-20] MEDS: LACTOBACILLUS ACIDOPHILUS (FLORANEX) TAB PO SCH ×2 (16:36→21:33)
[2019-05-20] MEDS: FUROSEMIDE 20 MG in SYRINGE 0 ML IV SCH (17:10)
--- NOTE | 2019-05-20 19:24 | Nephrology Progress Note ---
Date of Service May 20, 2019 Assessment & Plan (1) MAHAMED (acute kidney injury): Patient with acute kidney injury on CKD. Baseline creatinine of 1.2. Creatinine peaked 05/19 at 2.0, then down to 1.6 today. Fluctuation renal function likely hemodynamically mediated in setting of diuresis. Patient w/ mild volume overload and acute on chronic hypoxic resp failure. Will stop torsemide and give IV Lasix 20 mg twice daily. Monitor input output. Monitor daily standing weight. Daily BMP and avoid nephrotoxins unless lifesaving. (2) Chronic diastolic CHF (congestive heart failure): Patient with chronic diastolic CHF. He is followed closely by cardiology. No acute coronary events and chest pain is resolved. We will continue diuresis with IV Lasix as above. Should be on a 2 g sodium diet and fluid restriction of 1.2 L daily. (3) HTN (hypertension): Blood pressure is controlled on current regimen. No changes Subjective sundar on rounds this am at 0910; few complaints-denies pain, tolerating po, tolerating cbi, no sob, no n, no rash c/o BL flank pain worse than chronic; c/o sob ; had abg ON; seen on rounds 0930 Review of Systems Review of Systems: All systems reviewed & are unremarkable except as noted in HPI & below Physical Exam Constitutional: well developed and well nourished on 02NC, a& 0 x 3 Eyes: EOM intact bilaterally ENMT: Ears: no external ear abnormality Nose: no external nose abnormality Mouth: + dry oral mucous membranes Neck: no nuchal rigidity Respiratory: normal respiratory effort and + prolonged expiratory phase Auscultation: + diminished lung sounds and + wheezes Cardiovascular: Rate/Rhythm: regular rate and regular rhythm Extremities: + edema (trace BLE) Gastrointestinal (Abdomen): Inspection/Auscultation: normal bowel sounds Percussion/Palpation: abdomen soft; abdomen nontender Musculoskeletal: Extremities: strength 5/5 throughout Skin: no rashes, warm and dry Neurologic: bolivar, fluent speech, no tremor Psychiatric: A+Ox3, euthymic affect Genitourinary: fontaine present Results & Data Vital Signs (Past 12 Hours) Vital Signs Temp Pulse Resp BP Pulse Ox 05/20/19 18:42 83 16 91 05/20/19 14:53 36.6 C 93 H 20 125/71 93 05/20/19 11:29 36.6 C 89 16 123/68 92 Laboratory Results Abnormal lab results 05/19/19 05/19/19 05/19/19 Range/Units 19:56 19:56 20:19 PT (9.0-12.0) Seconds INR (0.9-1.1) ABG pO2 58 L (80-95) mm/Hg ABG HCO3 28 H (19-24) mmol/L ABG O2 Saturation 88.0 L (90-95) % ABG Base Excess 3.2 H (-9-1.8) mEq/L Sodium 134 L (136-145) mmol/L BUN 26 H (7-18) mg/dl Creatinine 2.00 H (0.6-1.4) mg/dl Glucose 305 H* (70-99) mg/dl POC Glucose 289 H (70-99) Urine Appearance (Clear) Urine Blood (Negative) Urine Nitrite (Negative) Ur Leukocyte Esterase (Negative) Urine WBC (Auto) (0-5) /hpf Urine RBC (Auto) (0-4) /hpf U Epithel Cells (Auto) (0-5) /lpf Urine Bacteria (Auto) (Negative) 05/19/19 05/20/19 05/20/19 Range/Units 21:45 01:54 06:20 PT (9.0-12.0) Seconds INR (0.9-1.1) ABG pO2 (80-95) mm/Hg ABG HCO3 (19-24) mmol/L ABG O2 Saturation (90-95) % ABG Base Excess (-9-1.8) mEq/L Sodium 134 L (136-145) mmol/L BUN 28 H (7-18) mg/dl Creatinine 1.62 H D (0.6-1.4) mg/dl Glucose 244 H (70-99) mg/dl POC Glucose 256 H (70-99) Urine Appearance Turbid A (Clear) Urine Blood 1+ H (Negative) Urine Nitrite Positive A (Negative) Ur Leukocyte Esterase 3+ H (Negative) Urine WBC (Auto) >30 H (0-5) /hpf Urine RBC (Auto) 5-10 H (0-4) /hpf U Epithel Cells (Auto) >30 H (0-5) /lpf Urine Bacteria (Auto) 4+ H (Negative) 05/20/19 05/20/19 05/20/19 Range/Units 07:43 11:56 15:15 PT 28.2 H (9.0-12.0) Seconds INR 3.0 H (0.9-1.1) ABG pO2 (80-95) mm/Hg ABG HCO3 (19-24) mmol/L ABG O2 Saturation (90-95) % ABG Base Excess (-9-1.8) mEq/L Sodium (136-145) mmol/L BUN (7-18) mg/dl Creatinine (0.6-1.4) mg/dl Glucose (70-99) mg/dl POC Glucose 281 H 288 H (70-99) Urine Appearance (Clear) Urine Blood (Negative) Urine Nitrite (Negative) Ur Leukocyte Esterase (Negative) Urine WBC (Auto) (0-5) /hpf Urine RBC (Auto) (0-4) /hpf U Epithel Cells (Auto) (0-5) /lpf Urine Bacteria (Auto) (Negative) 05/20/19 Range/Units 16:50 PT (9.0-12.0) Seconds INR (0.9-1.1) ABG pO2 (80-95) mm/Hg ABG HCO3 (19-24) mmol/L ABG O2 Saturation (90-95) % ABG Base Excess (-9-1.8) mEq/L Sodium (136-145) mmol/L BUN (7-18) mg/dl Creatinine (0.6-1.4) mg/dl Glucose (70-99) mg/dl POC Glucose 230 H (70-99) Urine Appearance (Clear) Urine Blood (Negative) Urine Nitrite (Negative) Ur Leukocyte Esterase (Negative) Urine WBC (Auto) (0-5) /hpf Urine RBC (Auto) (0-4) /hpf U Epithel Cells (Auto) (0-5) /lpf Urine Bacteria (Auto) (Negative) (1) HTN (hypertension) Hypertension type: essential hypertension Qualified Code(s): I10 - Essential (primary) hypertension
[2019-05-20] MEDS: INSULIN GLARGINE SOLOSTAR 100 UNITS/ML 3 ML PEN SC SCH (21:37)
[2019-05-20] MEDS: PIPERACILLIN/TAZOBACTAM 4.5 GM in DEXTROSE 5% 100 ML IV SCH (21:46)
[2019-05-21] MEDS: INSULIN ASPART 100 UNITS/ML 3 ML PEN SC SCH ×6 (00:34→20:45)
[2019-05-21] MEDS: OXYCODONE HCL IR 5 MG TAB (IMMEDIATE RELEASE) PO SCH ×6 (02:24→21:58)
[2019-05-21] MEDS: IPRATROPIUM BROMIDE NEB SOLN 0.02% 2.5 ML VIAL INH SCH ×6 (03:08→22:06)
[2019-05-21] MEDS: LEVALBUTEROL 1.25MG/0.5ML NEB INH SCH ×6 (03:08→22:06)
[2019-05-21] MEDS: methylPREDNISolone 60 MG in SYRINGE 0 ML IV SCH ×2 (06:10→13:47)
[2019-05-21 06:11] LABS: INR 3.4 (0.9-1.1); Prothrombin Time 31.7 Seconds (9.0-12.0)
[2019-05-21] MEDS: PIPERACILLIN/TAZOBACTAM 4.5 GM in DEXTROSE 5% 100 ML IV SCH (06:11)
[2019-05-21] MEDS: FUROSEMIDE 20 MG in SYRINGE 0 ML IV SCH ×2 (06:11→18:05)
[2019-05-21 06:41] LABS: BUN Creatinine Ratio 22.7 (10-20); Calcium 9.2 mg/dl (8.5-10.1); Creatinine Clr Calc Pharmacy 115.7 ml/min; Est GFR (African American) 67.8; Est GFR (Non-African American) 58.5; Potassium 4.1 mmol/L (3.5-5.1)
[2019-05-21] MEDS ORDERED: INSULIN HUMAN REGULAR BOLUS IV ONE (08:45)
[2019-05-21] MEDS ORDERED: INSULIN REGULAR 250 UNITS in SODIUM CHLORIDE 0.9% 247.5 ML IV SCH (08:46)
[2019-05-21] MEDS: DULOXETINE HCL 60 MG CAP PO SCH (09:25)
[2019-05-21] MEDS: CYCLOBENZAPRINE HCL 10 MG TAB PO SCH ×2 (09:25→20:42)
[2019-05-21] MEDS: PANTOprazole 40 MG TAB PO SCH (09:25)
[2019-05-21] MEDS: METOPROLOL SUCC 50MG EXT REL TAB PO SCH ×2 (09:26→20:53)
[2019-05-21] MEDS: SPIRONOLACTONE 25 MG TAB PO SCH ×2 (09:27→17:30)
[2019-05-21] MEDS: TAMSULOSIN HCL 0.4 MG CAP PO SCH (09:28)
[2019-05-21] MEDS: GABAPENTIN 100 MG CAP PO SCH ×3 (09:28→20:54)
[2019-05-21] MEDS: ISOSORBIDE MONO EXTENDED REL 30 MG TABCR PO SCH (09:29)
[2019-05-21] MEDS: ASPIRIN 81 MG ECTAB PO SCH (09:29)
[2019-05-21] MEDS: FINASTERIDE 5 MG TAB PO SCH (09:29)
[2019-05-21] MEDS: NICOTINE 21 MG/24 HR TDSY TD SCH (09:30)
[2019-05-21] MEDS: MAGNESIUM OXIDE 400 MG TAB PO SCH ×2 (09:30→20:54)
[2019-05-21] MEDS: FLUTICASONE PROPIONATE NA SPR 16 GM BTL SCH (09:32)
[2019-05-21] MEDS: INSULIN GLARGINE SOLOSTAR 100 UNITS/ML 3 ML PEN SC SCH ×2 (09:49→20:49)
[2019-05-21] MEDS: HYDROmorphone INJ 1 MG/ML SYRINGE IV PRN ×3 (09:54→18:05)
[2019-05-21] MEDS: MoRPHine SULFATE CR 15 MG TABCR PO SCH ×2 (09:54→20:41)
[2019-05-21] MEDS: DOCUSATE SODIUM/SENNA 50/8.6MG TAB PO SCH ×2 (10:02→20:55)
[2019-05-21] MEDS: LIDOCAINE 5% 1 PATCH TD SCH (10:02)
[2019-05-21] MEDS: LACTOBACILLUS ACIDOPHILUS (FLORANEX) TAB PO SCH ×4 (10:19→20:52)
[2019-05-21] MEDS: TIOTROPIUM BROMIDE 5 PUFF/90 MCG INH INH SCH (10:20)
--- NOTE | 2019-05-21 10:25 | Pharmacy Report ---
Pharmacy Glycemic Short Note 2 - Date of Service May 21, 2019 - Glycemic Short BSG Results (Last 24 hours): 05/20/19 05/20/19 05/20/19 11:56 16:50 19:53 Glucose POC Glucose 288 H 230 H 254 H 05/21/19 05/21/19 05/21/19 00:22 00:24 04:26 Glucose POC Glucose 352 H* 284 H 258 H 05/21/19 05/21/19 05:20 07:54 Glucose 244 H POC Glucose 269 H Outpatient Anti-diabetic Regimen: * none * A1c = 7.4 % 04/25/19 The patient is currently receiving: * Basal insulin: Lantus 30 units every 12 hours * Correctional Insulin: Novolog Correction per scale ACHS Goal Range: Low 110 mg/dL - High 140 mg/dL Correction Factor: 12 mg/dL/unit * Prandial insulin: Per carb ratio of 1 unit per 4 grams CHO consumed Risk Factors for Insulin Resistance: * Steroids: solu medrol 60 mg IV q8h * Diet: T2DM ASSESSMENT: * 48 yr old male admitted on 05/10/19 with chest pain and acute kidney injury. He developed severe hyperglycemia on 05/19 due to addition of IV steroids for ongoing wheezing/respiratory issues. There is no mention of h/o DM in H&P and patient does not report any anti-diabetic medications on home med list, however A1c of 7.2% meets diagnosis for diabetes. * Despite aggressive dosing of basal + bolus insulin (pt received 173 units), severe hyperglycemia persists with majority of BSGs > 250 mg/dL over the past 24 hours. I have discussed case with hospitalist. He plans to continue high dose IV steroids, therefore we both agree that the patient should be started on an IV insulin infusion. I will overlap the infusion with SQ basal insulin in an attempt to ease transitioning off the infusion. PLAN FOR INPATIENT GLYCEMIC CONTROL: * Initiate IV insulin infusion protocol per severe stress * Goal range: 110 - 180 mg/dL * Basal insulin * Lantus 30 units SQ this morning, then per scale: * 12 units for BSG less than 140 mg/dL * 20 units for BSG 140 - 200 mg/dL * 30 units for BSG greater than 200 mg/dL * Bolus insulin * NovoLog per scale ACHS or Q6hrs while NPO * Correction Factor: -- mg/dL/unit * Nutritional / Prandial insulin per insulin infusion adjustment calculator * Please note that the plan above was derived based on current level of insulin resistance and hospital stress. These recommendations are appropriate for inpatient admission only. Plan of care upon discharge will need to be reassessed to avoid potential outpatient hypo/hyperglycemia. PLAN FOR DISCHARGE: A1c of 7.4% from 04/25/19 indicates diagnosis of diabetes. Goal A1c < 7% based on age and comorbidities Metformin should be started at the time type 2 diabetes is diagnosed unless there are contraindications. Metformin is effective and safe, is inexpensive, and may reduce risk of cardiovascular events and . * Recommend starting: Metformin XR 500mg PO daily with evening meal. Typically the XR formulation of metformin is better tolerated than the immediate release formulation. Continue to titrate metformin dosing upwards as recommended. Dosage increases should be made in increments of 500 mg weekly, up to 2,000 mg/day PO, given in divided doses. Doses above 2000 mg/day may be better tolerated if divided and given 3 times per day with meals. Max: 2,550 mg/day PO, in divided doses * B12 supplementation may be necessary with extermination inspector metformin use Support Patient Self-Management * Healthy Lifestyle (diet, exercise, and smoking cessation) * Disease self-management (SMBG) * Prevention of complications (BP, Lipid goals, Immunizations) * Consider outpatient Diabetes Self-Management Education & Support
[2019-05-21] MEDS: cefTRIAXone SODIUM 2,000 MG in DEXTROSE 5% 50 ML IV SCH (12:59)
--- NOTE | 2019-05-21 13:26 | Hospitalist Progress Note ---
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 CXR: no pneumonia improving reduce Solumedrol to 40mg q8h continue Nebs q4h monitor on Ceftri for UTI (7) Depression with anxiety: No acute anxiety under confusion (8) Chronic pain disorder: pain management consulted continue analgesics at this time DVT prophylaxis inr 3.4 coumadin being titrated CODE STATUS Full Disposition pending plan of care discussed with patient at length and in detail All questions answered Is understanding, comfortable, agreeable with the plan of care Subjective Follow-up for chest pain, acute renal failure, volume overload Seen sitting up in bed, comfortable States his breathing seems to be improved compared to yesterday, less cough No abdominal pain, fevers or chills, flank pain bilateral is improving Pain syndrome improving overall with current management Patient reports some mild pain on the Lloyd catheter insertion site No other symptoms Review of Systems Review of Systems: All systems reviewed & are unremarkable except as noted in HPI & below Physical Exam Physical Exam: General- oriented x 3, not in distress, speaks in sentences with no effort or accessory muscle use Eyes- anicteric Neck- no JVD Lungs-faint wheeze/crackles scattered bilaterally, good air entry bilaterally Heart- normal rate, regular rhythm; no murmurs Abdomen- normal bowel sounds, nondistended, soft, nontender No signs of erythema, edema, discharge on the penis-examined with ALEXANDER Elias at the bedside Extremities- mild lower leg edema, no calf tenderness Neuro- alert, oriented x 3; no gross focal neurologic deficits Skin- warm & dry Results & Data Vital Signs (Past 12 Hours) Vital Signs Temp Pulse Resp BP Pulse Ox 05/21/19 12:21 36.6 C 81 20 137/61 95 05/21/19 08:00 36.5 C 73 20 120/78 90 05/21/19 04:00 36.7 C 74 20 146/75 H 93 (1) Chest pain Chest pain type: precordial pain Qualified Code(s): R07.2 - Precordial pain
[2019-05-21] MEDS: TRAMADOL HCL 50 MG TABLET PO PRN ×3 (14:19→22:21)
[2019-05-21] MEDS: methylPREDNISolone 40 MG in SYRINGE 0 ML IV SCH (22:00)
[2019-05-22] MEDS: OXYCODONE HCL IR 5 MG TAB (IMMEDIATE RELEASE) PO SCH ×6 (02:16→22:12)
[2019-05-22] MEDS: IPRATROPIUM BROMIDE NEB SOLN 0.02% 2.5 ML VIAL INH SCH ×6 (03:00→22:31)
[2019-05-22] MEDS: LEVALBUTEROL 1.25MG/0.5ML NEB INH SCH ×6 (03:00→22:31)
[2019-05-22 06:24] LABS: INR 2.5 (0.9-1.1); Prothrombin Time 24.1 Seconds (9.0-12.0)
[2019-05-22] MEDS: FUROSEMIDE 20 MG in SYRINGE 0 ML IV SCH ×2 (06:25→18:06)
[2019-05-22] MEDS: methylPREDNISolone 40 MG in SYRINGE 0 ML IV SCH (06:25)
[2019-05-22 06:37] LABS: BUN Creatinine Ratio 23.4 (10-20); Calcium 8.9 mg/dl (8.5-10.1); Creatinine Clr Calc Pharmacy 132.6 ml/min; Potassium 4.4 mmol/L (3.5-5.1)
[2019-05-22] MEDS: MoRPHine SULFATE CR 15 MG TABCR PO SCH ×2 (08:29→20:51)
[2019-05-22] MEDS: GABAPENTIN 100 MG CAP PO SCH ×3 (08:29→20:53)
[2019-05-22] MEDS: TAMSULOSIN HCL 0.4 MG CAP PO SCH (08:29)
[2019-05-22] MEDS: PANTOprazole 40 MG TAB PO SCH (08:29)
[2019-05-22] MEDS: TIOTROPIUM BROMIDE 5 PUFF/90 MCG INH INH SCH (08:30)
[2019-05-22] MEDS: LIDOCAINE 5% 1 PATCH TD SCH (08:30)
[2019-05-22] MEDS: FINASTERIDE 5 MG TAB PO SCH (08:31)
[2019-05-22] MEDS: ASPIRIN 81 MG ECTAB PO SCH (08:31)
[2019-05-22] MEDS: SPIRONOLACTONE 25 MG TAB PO SCH ×2 (08:31→18:04)
[2019-05-22] MEDS: MAGNESIUM OXIDE 400 MG TAB PO SCH ×2 (08:31→20:54)
[2019-05-22] MEDS: DULOXETINE HCL 60 MG CAP PO SCH (08:32)
[2019-05-22] MEDS: NICOTINE 21 MG/24 HR TDSY TD SCH (08:32)
[2019-05-22] MEDS: LACTOBACILLUS ACIDOPHILUS (FLORANEX) TAB PO SCH ×4 (08:33→20:54)
[2019-05-22] MEDS: METOPROLOL SUCC 50MG EXT REL TAB PO SCH ×2 (08:34→21:04)
[2019-05-22] MEDS: ISOSORBIDE MONO EXTENDED REL 30 MG TABCR PO SCH (08:34)
[2019-05-22] MEDS: CYCLOBENZAPRINE HCL 10 MG TAB PO SCH ×2 (08:34→20:55)
[2019-05-22] MEDS: FLUTICASONE PROPIONATE NA SPR 16 GM BTL SCH (08:35)
[2019-05-22] MEDS: DOCUSATE SODIUM/SENNA 50/8.6MG TAB PO SCH ×2 (08:36→20:52)
[2019-05-22] MEDS: INSULIN GLARGINE SOLOSTAR 100 UNITS/ML 3 ML PEN SC SCH ×2 (08:39→21:00)
[2019-05-22] MEDS: INSULIN ASPART 100 UNITS/ML 3 ML PEN SC SCH ×4 (08:41→21:00)
[2019-05-22] MEDS: HYDROmorphone INJ 1 MG/ML SYRINGE IV PRN ×3 (08:47→17:59)
--- NOTE | 2019-05-22 09:33 | Hospitalist Progress Note ---
Date of Service May 22, 2019 Assessment & Plan (1) Chest pain: (1) Chest pain: ACS ruled out Hatch Tender consulted ISMO has been changed to IMDUR 30 mg once a day and beta-nasim has been increased No further cardiology work-up (2) Palpitations: no tachycardia or tachyarrhythmias noted on monitor may benefit from outpatient cardiac monitoring (3) Chronic diastolic CHF (congestive heart failure) Possible Acute on Chronic Diastolic CHF weight trending up crea also increased to 1.7 Tavern Keeper consulted - Lasix IV started decreased to 20mg q12h today crea improved to 1.2 - negative fluid balance wheezing improving continue Lasix MAHAMED Tavern Keeper consulted (4) Indwelling Lloyd catheter present: History of recurrent urinary tract infection Has chronic Lloyd catheter in situ -- Urine culture: E Coli changed Zosyn to Ceftriaxone consult Urologist re: possible removal of Lloyd Catheter (5) Pulmonary embolism: INR 2.5 resume coumadin INR daily (6) COPD (chronic obstructive pulmonary disease): with mild exacerbation, from CHF? CXR: no pneumonia improving reduce Solumedrol to 40mg q8h--> transition to Prednisone continue Nebs monitor on Ceftri for UTI (7) Depression with anxiety: stable (8) Chronic pain disorder: pain management consulted continue analgesics at this time discussed with patient, pain better controlled, will wean off/ discontinue IV Dilaudid DVT prophylaxis inr 2.5 coumadin CODE STATUS Full Disposition pending plan of care discussed with patient at length and in detail All questions answered Is understanding, comfortable, agreeable with the plan of care Subjective ff up for chest pain, volume overload, COPD exacerbation seen with ALEXANDER Mosley at bedside states breathing is improving, less cough/sputum denies chest pain no abdominal pain, nausea/vomiting, urinary symptoms no other symptoms Review of Systems Review of Systems: All systems reviewed & are unremarkable except as noted in HPI & below Physical Exam Physical Exam: General- oriented x 3, not in distress, speaks in sentences with no effort or accessory muscle use Eyes- anicteric Neck- no JVD Lungs- faint wheeze bilaterally no rales good air entry bilaterally Heart- normal rate, regular rhythm; no murmurs Abdomen- normal bowel sounds, nondistended, soft, nontender Extremities- mild lower leg edema, no calf tenderness Neuro- alert, oriented x 3; no gross focal neurologic deficits Skin- warm & dry Results & Data Vital Signs (Past 12 Hours) Vital Signs Temp Pulse Resp BP Pulse Ox 05/22/19 07:31 36.6 C 64 16 149/77 H 97 05/21/19 23:00 36.9 C 72 20 103/59 L 94 Laboratory Results Laboratory Results - last 24 hr 05/21/19 05/21/19 05/22/19 22:30 23:33 01:16 PT INR Sodium Potassium Chloride Carbon Dioxide Anion Gap BUN Creatinine Est Cr Clr Drug Dosing Est GFR ( Amer) Est GFR (Non-Af Amer) BUN/Creatinine Ratio Glucose POC Glucose 242 H 170 H 137 H Calcium 05/22/19 05/22/19 05/22/19 02:16 03:24 03:40 PT INR Sodium Potassium Chloride Carbon Dioxide Anion Gap BUN Creatinine Est Cr Clr Drug Dosing Est GFR ( Amer) Est GFR (Non-Af Amer) BUN/Creatinine Ratio Glucose POC Glucose 176 H 108 H 89 Calcium 05/22/19 05/22/19 05/22/19 04:03 04:34 05:04 PT INR Sodium Potassium Chloride Carbon Dioxide Anion Gap BUN Creatinine Est Cr Clr Drug Dosing Est GFR ( Amer) Est GFR (Non-Af Amer) BUN/Creatinine Ratio Glucose POC Glucose 106 H 135 H 123 H Calcium 05/22/19 05/22/19 05/22/19 05:40 05:40 06:03 PT 24.1 H INR 2.5 H Sodium 141 Potassium 4.4 Chloride 106 Carbon Dioxide 28 Anion Gap 7.0 BUN 29 H Creatinine 1.23 Est Cr Clr Drug Dosing 132.6 Est GFR ( Amer) 80.0 Est GFR (Non-Af Amer) 69.0 BUN/Creatinine Ratio 23.4 H Glucose 135 H POC Glucose 127 H Calcium 8.9 05/22/19 05/22/19 05/22/19 07:24 08:31 09:30 PT INR Sodium Potassium Chloride Carbon Dioxide Anion Gap BUN Creatinine Est Cr Clr Drug Dosing Est GFR ( Amer) Est GFR (Non-Af Amer) BUN/Creatinine Ratio Glucose POC Glucose 138 H 187 H 210 H Calcium 05/22/19 05/22/19 05/22/19 11:37 16:48 20:33 PT INR Sodium Potassium Chloride Carbon Dioxide Anion Gap BUN Creatinine Est Cr Clr Drug Dosing Est GFR ( Amer) Est GFR (Non-Af Amer) BUN/Creatinine Ratio Glucose POC Glucose 230 H 193 H 160 H Calcium (1) Chest pain Chest pain type: precordial pain Qualified Code(s): R07.2 - Precordial pain
[2019-05-22] MEDS: TRAMADOL HCL 50 MG TABLET PO PRN ×3 (10:09→18:40)
[2019-05-22] MEDS ORDERED: MICONAZOLE NITRATE POWDER 43 GM ONE (11:19)
[2019-05-22] MEDS ORDERED: Nursing to Pharmacy Communication ONE (11:32)
[2019-05-22] MEDS ORDERED: MICONAZOLE NITRATE POWDER 43 GM EXT PRN (11:35)
[2019-05-22] MEDS: cefTRIAXone SODIUM 2,000 MG in DEXTROSE 5% 50 ML IV SCH (13:55)
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
--- NOTE | 2019-05-22 16:54 | Pharmacy Report ---
Pharmacy Glycemic Short Note 2 - Date of Service May 22, 2019 - Glycemic Short BSG Results (Last 24 hours): 05/21/19 05/21/19 05/21/19 17:39 18:32 19:32 Glucose POC Glucose 281 H 243 H 249 H 05/21/19 05/21/19 05/21/19 20:34 21:29 22:30 Glucose POC Glucose 207 H 284 H 242 H 05/21/19 05/22/19 05/22/19 23:33 01:16 02:16 Glucose POC Glucose 170 H 137 H 176 H 05/22/19 05/22/19 05/22/19 03:24 03:40 04:03 Glucose POC Glucose 108 H 89 106 H 05/22/19 05/22/19 05/22/19 04:34 05:04 05:40 Glucose 135 H POC Glucose 135 H 123 H 05/22/19 05/22/19 05/22/19 06:03 07:24 08:31 Glucose POC Glucose 127 H 138 H 187 H 05/22/19 05/22/19 09:30 11:37 Glucose POC Glucose 210 H 230 H Outpatient Anti-diabetic Regimen: * none * A1c = 7.4 % 04/25/19 ASSESSMENT: 05/22/19: * Insulin gtt was held beginning at ~0300 this morning. * Steroids were reduced from SoluMedrol 60mg IV q8h --> Prednisone 40mg PO BID. * Suspect that with reduction in steroid dose and continued aggressive SQ insulin, patient may not need to resume IV insulin infusion. * If patient has sustained hyperglycemia, will likely require more IV insulin. 05/21/19 * 48 yr old male admitted on 05/10/19 with chest pain and acute kidney injury. He developed severe hyperglycemia on 05/19 due to addition of IV steroids for ongoing wheezing/respiratory issues. There is no mention of h/o DM in H&P and patient does not report any anti-diabetic medications on home med list, however A1c of 7.2% meets diagnosis for diabetes. * Despite aggressive dosing of basal + bolus insulin (pt received 173 units), severe hyperglycemia persists with majority of BSGs > 250 mg/dL over the past 24 hours. I have discussed case with hospitalist. He plans to continue high dose IV steroids, therefore we both agree that the patient should be started on an IV insulin infusion. I will overlap the infusion with SQ basal insulin in an attempt to ease transitioning off the infusion. PLAN FOR INPATIENT GLYCEMIC CONTROL: * Okay to hold insulin infusion -- will resume if BSGs remain >200mg/dL * Basal insulin * Lantus 30 units SQ BID * Bolus insulin * NovoLog per scale ACHS plus 0000 and 0400 * Correction Factor: 12 mg/dL/unit * Nutritional / Prandial insulin: 1 unit per 4 gm CHO consumed * Please note that the plan above was derived based on current level of insulin resistance and hospital stress. These recommendations are appropriate for inpatient admission only. Plan of care upon discharge will need to be reassessed to avoid potential outpatient hypo/hyperglycemia. PLAN FOR DISCHARGE: A1c of 7.4% from 04/25/19 indicates diagnosis of diabetes. Goal A1c < 7% based on age and comorbidities Metformin should be started at the time type 2 diabetes is diagnosed unless there are contraindications. Metformin is effective and safe, is inexpensive, and may reduce risk of cardiovascular events and . * Recommend starting: Metformin XR 500mg PO daily with evening meal. Typically the XR formulation of metformin is better tolerated than the immediate release formulation. Continue to titrate metformin dosing upwards as recommended. Dosage increases should be made in increments of 500 mg weekly, up to 2,000 mg/day PO, given in divided doses. Doses above 2000 mg/day may be better tolerated if divided and given 3 times per day with meals. Max: 2,550 mg/day PO, in divided doses * B12 supplementation may be necessary with nursing home metformin use Support Patient Self-Management * Healthy Lifestyle (diet, exercise, and smoking cessation) * Disease self-management (SMBG) * Prevention of complications (BP, Lipid goals, Immunizations) * Consider outpatient Diabetes Self-Management Education & Support
[2019-05-22] MEDS: PROMETHAZINE HCL 12.5 MG in SODIUM CHLORIDE 0.9% 50 ML IV PRN (18:13)
[2019-05-22] MEDS: predniSONE 20 MG TAB PO SCH (20:53)
[2019-05-22] MEDS ORDERED: WARFARIN SOD 5 MG TAB PO ONE (21:57)
[2019-05-23] MEDS: INSULIN ASPART 100 UNITS/ML 3 ML PEN SC SCH ×6 (00:13→20:28)
[2019-05-23] MEDS: OXYCODONE HCL IR 5 MG TAB (IMMEDIATE RELEASE) PO SCH ×6 (01:42→22:10)
[2019-05-23] MEDS: LEVALBUTEROL 1.25MG/0.5ML NEB INH SCH ×6 (03:05→23:25)
[2019-05-23] MEDS: IPRATROPIUM BROMIDE NEB SOLN 0.02% 2.5 ML VIAL INH SCH ×6 (03:05→23:25)
[2019-05-23] MEDS: FUROSEMIDE 20 MG in SYRINGE 0 ML IV SCH (05:29)
[2019-05-23] MEDS: TRAMADOL HCL 50 MG TABLET PO PRN ×3 (06:05→15:00)
[2019-05-23 06:45] LABS: INR 1.5 (0.9-1.1)
[2019-05-23 06:57] LABS: BUN Creatinine Ratio 26.3 (10-20); Calcium 8.8 mg/dl (8.5-10.1); Creatinine Clr Calc Pharmacy 124.5 ml/min; Est GFR (African American) 74.1; Est GFR (Non-African American) 63.9; Potassium 4.4 mmol/L (3.5-5.1)
[2019-05-23] MEDS: LACTOBACILLUS ACIDOPHILUS (FLORANEX) TAB PO SCH ×4 (08:28→20:22)
[2019-05-23] MEDS: MoRPHine SULFATE CR 15 MG TABCR PO SCH ×2 (08:28→20:25)
[2019-05-23] MEDS: NICOTINE 21 MG/24 HR TDSY TD SCH (08:29)
[2019-05-23] MEDS: METOPROLOL SUCC 50MG EXT REL TAB PO SCH ×2 (08:29→20:31)
[2019-05-23] MEDS: predniSONE 20 MG TAB PO SCH (08:29)
[2019-05-23] MEDS: PANTOprazole 40 MG TAB PO SCH (08:29)
[2019-05-23] MEDS: FINASTERIDE 5 MG TAB PO SCH (08:29)
[2019-05-23] MEDS: TAMSULOSIN HCL 0.4 MG CAP PO SCH (08:29)
[2019-05-23] MEDS: MAGNESIUM OXIDE 400 MG TAB PO SCH ×2 (08:29→20:25)
[2019-05-23] MEDS: GABAPENTIN 100 MG CAP PO SCH ×3 (08:29→20:25)
[2019-05-23] MEDS: SPIRONOLACTONE 25 MG TAB PO SCH ×2 (08:30→17:49)
[2019-05-23] MEDS: ASPIRIN 81 MG ECTAB PO SCH (08:30)
[2019-05-23] MEDS: CYCLOBENZAPRINE HCL 10 MG TAB PO SCH ×2 (08:30→20:22)
[2019-05-23] MEDS: FLUTICASONE PROPIONATE NA SPR 16 GM BTL SCH (08:30)
[2019-05-23] MEDS: ISOSORBIDE MONO EXTENDED REL 30 MG TABCR PO SCH (08:30)
[2019-05-23] MEDS: DULOXETINE HCL 60 MG CAP PO SCH (08:30)
[2019-05-23] MEDS: DOCUSATE SODIUM/SENNA 50/8.6MG TAB PO SCH ×2 (08:31→20:31)
[2019-05-23] MEDS: TIOTROPIUM BROMIDE 5 PUFF/90 MCG INH INH SCH (08:31)
[2019-05-23] MEDS: LIDOCAINE 5% 1 PATCH TD SCH (08:31)
[2019-05-23] MEDS: HYDROmorphone INJ 1 MG/ML SYRINGE IV PRN ×2 (08:39→12:31)
[2019-05-23] MEDS: INSULIN GLARGINE SOLOSTAR 100 UNITS/ML 3 ML PEN SC SCH (08:46)
[2019-05-23] MEDS: PROMETHAZINE HCL 12.5 MG in SODIUM CHLORIDE 0.9% 50 ML IV PRN ×2 (12:23→22:47)
--- NOTE | 2019-05-23 13:48 | Hospitalist Progress Note ---
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 CT angio ordered INR 1.5 coumadin 10mg po ordered if CT angio negative for recurrent PE, will order Lovenox 40mg SC until INR therapeutic if positive, will need Heparin/Lovenox bridge from COPD Exacerbation? 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 - Lasix IV started decreased to 20mg q12h today crea improved to 1.2 - negative fluid balance weight down from 202 to 199kg - discussed with Nephro SVC will resume usual Torsemide 20mg BID for now monitor MAHAMED Oil Burner Mechanic consulted (4) Indwelling Lloyd catheter present: History of recurrent urinary tract infection Has chronic Lloyd catheter in situ -- Urine culture: E Coli changed Zosyn to Ceftriaxone consulted Urologist -- recommend to maintain Lloyd Cath for now (5) Pulmonary embolism: INR 1.5 coumadin 10mg po ordered if CT angio negative for recurrent PE, will order Lovenox 40mg SC until INR therapeutic if positive, will need Heparin/Lovenox bridge monitor INR (6) COPD (chronic obstructive pulmonary disease): with mild exacerbation, from CHF? management per #1 (7) Depression with anxiety: stable (8) Chronic pain disorder: pain management consulted discussed with patient, pain better controlled, will wean off/ discontinue IV Dilaudid-- Dilaudid IV x1 tomorrow, then STOP DVT prophylaxis inr 1.5 on coumadin CODE STATUS Full Disposition pending plan of care discussed with patient at length and in detail All questions answered He is understanding, comfortable, agreeable with the plan of care Subjective ff up for chest pain, acute renal failure, COPD exacerbation seen with ALEXANDER Martin at the bedside resting, comfortable reports mild dyspnea today, still with cough, non productive no other symptoms around 6pm, patient reported left sided chest pain ekg done: No acute ischemia given Nitro x 2 with some relief on exam, patient reports left sided chest pain pressure/sharp- radiating to left arm worse with inspiration associated with some dyspnea no other symptoms Review of Systems Review of Systems: All systems reviewed & are unremarkable except as noted in HPI & below Physical Exam Physical Exam: General- oriented x 3, not in distress, speaks in sentences with no effort or accessory muscle use Eyes- anicteric Neck- no JVD Lungs- (+) scattered rhonchi b/l good air entry BL Heart- normal rate, regular rhythm; no murmurs Abdomen- normal bowel sounds, nondistended, soft, nontender Extremities-grade 1 lower leg edema, no calf tenderness Neuro- alert, oriented x 3; no gross focal neurologic deficits Skin- warm & dry Results & Data Vital Signs (Past 12 Hours) Vital Signs Temp Pulse Pulse Resp BP Pulse Ox 05/23/19 11:14 74 18 93 05/23/19 07:00 36.8 C 64 20 110/72 94 Laboratory Results Laboratory Results - last 24 hr 05/22/19 05/23/19 05/23/19 23:57 04:04 05:56 PT 15.0 H INR 1.5 H Sodium Potassium Chloride Carbon Dioxide Anion Gap BUN Creatinine Est Cr Clr Drug Dosing Est GFR ( Amer) Est GFR (Non-Af Amer) BUN/Creatinine Ratio Glucose POC Glucose 128 H 160 H Calcium Troponin I 05/23/19 05/23/19 05/23/19 05:56 08:02 11:57 PT INR Sodium 139 Potassium 4.4 Chloride 106 Carbon Dioxide 27 Anion Gap 6.0 BUN 34 H Creatinine 1.31 Est Cr Clr Drug Dosing 124.5 Est GFR ( Amer) 74.1 Est GFR (Non-Af Amer) 63.9 BUN/Creatinine Ratio 26.3 H Glucose 157 H POC Glucose 159 H 152 H Calcium 8.8 Troponin I 05/23/19 05/23/19 05/23/19 16:46 19:22 20:23 PT INR Sodium Potassium Chloride Carbon Dioxide Anion Gap BUN Creatinine Est Cr Clr Drug Dosing Est GFR ( Amer) Est GFR (Non-Af Amer) BUN/Creatinine Ratio Glucose POC Glucose 201 H 181 H Calcium Troponin I < 0.015 (1) Chest pain Chest pain type: precordial pain Qualified Code(s): R07.2 - Precordial pain
[2019-05-23] MEDS: cefTRIAXone SODIUM 2,000 MG in DEXTROSE 5% 50 ML IV SCH (14:10)
--- NOTE | 2019-05-23 14:25 | XRay Report ---
XR chest 1V portable HISTORY: Shortness of breath. r/o pulmonary edema COMPARISON: Chest 05/19/2019. FINDINGS: No pneumothorax. The heart remains mildly enlarged. Diffuse interstitial thickening persist s. Stable blunting of the costophrenic sulci with a left basilar density. The left basilar densities favor subsegmental atelectasis as seen on the recent abdomen and pelvis CT. No new focal lung consoli dations. No evidence for pulmonary edema. IMPRESSION: No significant change compared to the prior study. No acute process. Electronically signed by: Vidal Keller M.D. 05/23/2019 2:24 PM
[2019-05-23] MEDS ORDERED: FUROSEMIDE 20 MG in SYRINGE 0 ML IV ONE (14:30)
--- NOTE | 2019-05-23 14:52 | Pharmacy Report ---
Pharmacy Glycemic Short Note 2 - Date of Service May 23, 2019 - Glycemic Short BSG Results (Last 24 hours): 05/22/19 05/22/19 05/22/19 16:48 20:33 23:57 Glucose POC Glucose 193 H 160 H 128 H 05/23/19 05/23/19 05/23/19 04:04 05:56 08:02 Glucose 157 H POC Glucose 160 H 159 H 05/23/19 11:57 Glucose POC Glucose 152 H Outpatient Anti-diabetic Regimen: * none * A1c = 7.4 % 04/25/19 ASSESSMENT: 05/23/19: * Patient received total of 107 units of insulin yesterday, of which 60 units were basal insulin * Steroids changed yesterday from Solm 40 (received on dose in AM to prednisone 40 BID starting last night) * Fasting BSG this am improving from days prior 157 mg/dL - will continue Lantus 30 this AM, feel that BSGs will improve with steroids being tapered, therefore will add scale for Lantus tonight PLAN FOR INPATIENT GLYCEMIC CONTROL: * Basal insulin * Lantus 30 Qam * Lantus HS per scale : for BSG 160 or less - give 20 units, for BSG greater than 160 - give 30 units * Bolus insulin - no change * NovoLog per scale ACHS plus 0000 and 0400 * Correction Factor: 12 mg/dL/unit * Nutritional / Prandial insulin: 1 unit per 4 gm CHO consumed * Please note that the plan above was derived based on current level of insulin resistance and hospital stress. These recommendations are appropriate for inpatient admission only. Plan of care upon discharge will need to be reassessed to avoid potential outpatient hypo/hyperglycemia.
[2019-05-23] MEDS ORDERED: WARFARIN SOD 7.5 MG TAB PO STA (18:08)
[2019-05-23] MEDS: NITROGLYCERIN SL 0.4 MG/TAB TAB SL PRN ×2 (18:28→18:37)
--- NOTE | 2019-05-23 18:31 | Nephrology Progress Note ---
Date of Service May 23, 2019 Assessment & Plan (1) Chronic diastolic CHF (congestive heart failure): pt takes torsemide 20 mg bid and K 10 mEq po bid and spironolactone 50 mg bid from prior to admission; not floridly overloaded on exam though he is very concerned about this. he is 11 liters negative since 05/20 by I/O; wt is labile but not climbing -currently w/ active chest pain w/ ACS ruled out yesterday; ECG being repeated currently -assuming no active ACS, w/ clear CXR recommend stopping IV lasix and transitioning to torsemide 20 mg bid and spironolactone home dose -recommend < 2 gm daily Na diet and FR 1.5 L daily -daily bmp while in house ; bmp w/ in a week of d/c -appreciate consult; will sign off Present on Admission?: Yes (2) Urinary retention: per urology Present on Admission?: Yes (3) Chest pain: Dr Clark aware; ECG in process; hospitalist considering cT angio Present on Admission?: Yes Subjective pt c/o L sided chest pain radiating down L arm and ECG being done. c/o worsening edema; anxiety. urology following for urinary retention, chronic issue>> urology recommendations on chart, including bid hand irrigation and OP cystoscopy Review of Systems Review of Systems: All systems reviewed & are unremarkable except as noted in HPI & below Cardiovascular: + chest pain, + palpitations and + edema Physical Exam Constitutional: well developed and + morbidly obese on RA, anxious Eyes: EOM intact bilaterally ENMT: Ears: no external ear abnormality Nose: no external nose abnormality Mouth: + dry oral mucous membranes Neck: no nuchal rigidity Respiratory: normal respiratory effort Auscultation: + diminished lung sounds and + wheezes (very occasional; better than prior lung exam) Cardiovascular: Rate/Rhythm: regular rate and regular rhythm Extremities: + edema (at most trace BLE edema) Gastrointestinal (Abdomen): Inspection/Auscultation: normal bowel sounds Percussion/Palpation: abdomen soft; abdomen nontender Musculoskeletal: Extremities: strength 5/5 throughout Skin: no rashes, warm and dry Neurologic: bolivar, fluent speech, no tremor Psychiatric: Orientation: alert and oriented x 3 Speech: normal rate/ rhythm/volume of speech Affect: + anxious affect Genitourinary: fontaine w/ ample urine Results & Data Vital Signs (Past 12 Hours) Vital Signs Temp Pulse Pulse Resp BP Pulse Ox 05/23/19 16:03 76 16 92 05/23/19 15:19 36.7 C 86 18 161/75 H 96 05/23/19 11:14 74 18 93 05/23/19 07:00 36.8 C 64 20 110/72 94 Laboratory Results Abnormal lab results 05/22/19 05/22/19 05/23/19 Range/Units 20:33 23:57 04:04 PT (9.0-12.0) Seconds INR (0.9-1.1) BUN (7-18) mg/dl BUN/Creatinine Ratio (10-20) Glucose (70-99) mg/dl POC Glucose 160 H 128 H 160 H (70-99) 05/23/19 05/23/19 05/23/19 Range/Units 05:56 05:56 08:02 PT 15.0 H (9.0-12.0) Seconds INR 1.5 H (0.9-1.1) BUN 34 H (7-18) mg/dl BUN/Creatinine Ratio 26.3 H (10-20) Glucose 157 H (70-99) mg/dl POC Glucose 159 H (70-99) 05/23/19 05/23/19 Range/Units 11:57 16:46 PT (9.0-12.0) Seconds INR (0.9-1.1) BUN (7-18) mg/dl BUN/Creatinine Ratio (10-20) Glucose (70-99) mg/dl POC Glucose 152 H 201 H (70-99) Diagnostic Findings cxr today > no acute process; no plm edema or consolidation
[2019-05-23] MEDS ORDERED: WARFARIN SOD 10 MG TAB PO ONE (18:33)
[2019-05-23] MEDS ORDERED: methylPREDNISolone 60 MG in SYRINGE 0 ML IV ONE (19:15)
[2019-05-23] MEDS ORDERED: FUROSEMIDE 40 MG in SYRINGE 0 ML IV SCH (20:00)
[2019-05-23] MEDS ORDERED: INSULIN GLARGINE SOLOSTAR 100 UNITS/ML 3 ML PEN SC ONE (21:00)
[2019-05-23] MEDS ORDERED: INSULIN GLARGINE SOLOSTAR 100 UNITS/ML 3 ML PEN SC SCH (21:00)
[2019-05-23] MEDS ORDERED: TORSEMIDE 10 MG TAB PO SCH (21:00)
[2019-05-23] MEDS ORDERED: Heparin IV Standard *NO* Bolus IV SCH (22:55)
[2019-05-23 23:47] LABS: Partial Thromboplastin Time 26.2 Seconds (21.0-31.0)
[2019-05-23] MEDS: HEPARIN SODIUM/DEXTROSE 25,000 UNITS/500 ML BAG IV SCH (23:58)
[2019-05-24] MEDS: INSULIN ASPART 100 UNITS/ML 3 ML PEN SC SCH ×6 (00:03→21:30)
[2019-05-24] MEDS: OXYCODONE HCL IR 5 MG TAB (IMMEDIATE RELEASE) PO SCH ×6 (02:30→22:08)
[2019-05-24] MEDS: IPRATROPIUM BROMIDE NEB SOLN 0.02% 2.5 ML VIAL INH SCH ×3 (03:24→11:12)
[2019-05-24] MEDS: LEVALBUTEROL 1.25MG/0.5ML NEB INH SCH ×3 (03:24→11:12)
[2019-05-24] MEDS: methylPREDNISolone 40 MG in SYRINGE 0 ML IV SCH ×3 (04:10→21:33)
[2019-05-24 06:47] LABS: INR 1.5 (0.9-1.1); Prothrombin Time 14.5 Seconds (9.0-12.0)
[2019-05-24 06:57] LABS: BUN Creatinine Ratio 23.9 (10-20); Blood Urea Nitrogen 37 mg/dl (7-18); Calcium 8.7 mg/dl (8.5-10.1); Carbon Dioxide 28 mmol/L (21-32); Chloride 104 mmol/L (98-107); Creatinine Clr Calc Pharmacy 104.6 ml/min; Est GFR (African American) 60.5; Est GFR (Non-African American) 52.2; Glucose 179 mg/dl (70-99); Potassium 4.6 mmol/L (3.5-5.1); Sodium 138 mmol/L (136-145)
[2019-05-24 07:01] LABS: Troponin I < 0.015 ng/ml (0-0.045)
--- NOTE | 2019-05-24 07:56 | Nephrology Progress Note ---
Date of Service May 24, 2019 Assessment & Plan (1) MAHAMED (acute kidney injury): baseline creatinine is 1.2-1.3. overnight w/ aggressive diuresis, his renal function has gone from 1.0>1.6. he is 13.6 L negative by I/O over the past 5 days, though I suspect some intake missed b/c weight has not changed as drastically as these #I/O suggest. has not had iv contrast ; is also getting ceftriaxone for catheter associated UTI which could in theory cause ATN; diuretics likelier cause -stopped torsemide, spironolactone -IV lasix 20 mg prn sob only for now -daily bmp Present on Admission?: Yes (2) Chronic diastolic CHF (congestive heart failure): pt takes torsemide 20 mg bid and K 10 mEq po bid and spironolactone 50 mg bid from prior to admission; not floridly overloaded on exam generally. he is 14 liters negative since 05/20 by I/O; wt is labile but not climbing -currently w/ active chest pain w/ ACS ruled out yesterday; ECG being repeated currently; note he is on heparin gtt -assuming no active ACS, w/ clear CXR and worsening renal function hold diuretics -recommend < 2 gm daily Na diet and FR 1.5 L daily -needs daily STANDING wts pls -daily bmp while in house ; bmp w/ in a week of d/c -ordered recheck cbc for am given abtx for UTI and chronic anemia Present on Admission?: Yes (3) Urinary retention: per urology (4) Chest pain: Dr Clark aware; ECG in process; hospitalist considering cT angio Subjective c/o ongoing sob, chest pain; states "I feel like crap." on heparin gtt currently Review of Systems Review of Systems: All systems reviewed & are unremarkable except as noted in HPI & below Cardiovascular: + chest pain, + palpitations and + edema Genitourinary: + problem reported (tolerating fontaine) Physical Exam Constitutional: well developed and + morbidly obese on RA, NAD Eyes: EOM intact bilaterally ENMT: Ears: no external ear abnormality Nose: no external nose abnormality Mouth: + dry oral mucous membranes Neck: no nuchal rigidity Respiratory: normal respiratory effort and + prolonged expiratory phase Auscultation: + diminished lung sounds and + wheezes (diffuse) Cardiovascular: Rate/Rhythm: regular rate and regular rhythm Extremities: + edema (trace BLE edema) Gastrointestinal (Abdomen): Inspection/Auscultation: normal bowel sounds Percussion/Palpation: abdomen soft; abdomen nontender Musculoskeletal: Extremities: strength 5/5 throughout Skin: no rashes, warm and dry Neurologic: bolivar fluent speech no tremor Psychiatric: A+Ox3, euthymic affect Orientation: alert and oriented x 3 Speech: normal rate/rhythm/volume of speech Affect: + anxious affect Genitourinary: fontaine w/ ample urine Results & Data Vital Signs (Past 12 Hours) Vital Signs Temp Pulse Resp BP Pulse Ox 05/24/19 07:25 36.7 C 71 18 151/66 H 95 05/23/19 20:00 36.5 C 77 20 124/80 98 Laboratory Results Abnormal lab results 05/23/19 05/23/19 05/24/19 Range/Units 16:46 20:23 00:01 PT (9.0-12.0) Seconds INR (0.9-1.1) APTT (21.0-31.0) Seconds BUN (7-18) mg/dl Creatinine (0.6-1.4) mg/dl BUN/Creatinine Ratio (10-20) Glucose (70-99) mg/dl POC Glucose 201 H 181 H 157 H (70-99) 05/24/19 05/24/19 05/24/19 Range/Units 04:02 06:00 06:07 PT 14.5 H (9.0-12.0) Seconds INR 1.5 H (0.9-1.1) APTT 54.0 H* (21.0-31.0) Seconds BUN 37 H (7-18) mg/dl Creatinine 1.55 H (0.6-1.4) mg/dl BUN/Creatinine Ratio 23.9 H (10-20) Glucose 179 H (70-99) mg/dl POC Glucose 207 H (70-99) 05/24/19 05/24/19 Range/Units 07:56 11:55 PT (9.0-12.0) Seconds INR (0.9-1.1) APTT (21.0-31.0) Seconds BUN (7-18) mg/dl Creatinine (0.6-1.4) mg/dl BUN/Creatinine Ratio (10-20) Glucose (70-99) mg/dl POC Glucose 152 H 121 H (70-99)
[2019-05-24] MEDS ORDERED: HYDROmorphone INJ 1 MG/ML SYRINGE IV PRN (08:00)
[2019-05-24] MEDS: TIOTROPIUM BROMIDE 5 PUFF/90 MCG INH INH SCH (08:58)
[2019-05-24] MEDS: MoRPHine SULFATE CR 15 MG TABCR PO SCH ×2 (08:58→21:26)
[2019-05-24] MEDS: FLUTICASONE PROPIONATE NA SPR 16 GM BTL SCH (08:58)
[2019-05-24] MEDS: METOPROLOL SUCC 50MG EXT REL TAB PO SCH ×2 (08:59→21:36)
[2019-05-24] MEDS: PANTOprazole 40 MG TAB PO SCH (08:59)
[2019-05-24] MEDS ORDERED: INSULIN GLARGINE SOLOSTAR 100 UNITS/ML 3 ML PEN SC SCH ×2 (09:00)
[2019-05-24] MEDS: CYCLOBENZAPRINE HCL 10 MG TAB PO SCH ×2 (09:00→21:33)
[2019-05-24] MEDS: ISOSORBIDE MONO EXTENDED REL 30 MG TABCR PO SCH (09:00)
[2019-05-24] MEDS: DULOXETINE HCL 60 MG CAP PO SCH (09:00)
[2019-05-24] MEDS: GABAPENTIN 100 MG CAP PO SCH ×3 (09:01→21:29)
[2019-05-24] MEDS: LACTOBACILLUS ACIDOPHILUS (FLORANEX) TAB PO SCH ×4 (09:01→21:32)
[2019-05-24] MEDS: MAGNESIUM OXIDE 400 MG TAB PO SCH ×2 (09:01→21:31)
[2019-05-24] MEDS: ASPIRIN 81 MG ECTAB PO SCH (09:02)
[2019-05-24] MEDS: FINASTERIDE 5 MG TAB PO SCH (09:02)
[2019-05-24] MEDS: LIDOCAINE 5% 1 PATCH TD SCH (09:02)
[2019-05-24] MEDS: DOCUSATE SODIUM/SENNA 50/8.6MG TAB PO SCH ×2 (09:02→21:30)
[2019-05-24] MEDS: TAMSULOSIN HCL 0.4 MG CAP PO SCH (09:03)
[2019-05-24] MEDS: NICOTINE 21 MG/24 HR TDSY TD SCH (09:03)
[2019-05-24] MEDS: INSULIN GLARGINE SOLOSTAR 100 UNITS/ML 3 ML PEN SC SCH ×2 (09:33→21:32)
[2019-05-24] MEDS: HEPARIN SODIUM/DEXTROSE 25,000 UNITS/500 ML BAG IV SCH ×2 (10:53→22:07)
[2019-05-24] MEDS: TRAMADOL HCL 50 MG TABLET PO PRN ×2 (12:20→17:18)
[2019-05-24] MEDS ORDERED: HYDROmorphone INJ 1 MG/ML SYRINGE IV SCH (12:30)
--- NOTE | 2019-05-24 14:08 | Pharmacy Report ---
Pharmacy Glycemic Short Note 2 - Date of Service May 24, 2019 - Glycemic Short BSG Results (Last 24 hours): 05/23/19 05/23/19 05/24/19 16:46 20:23 00:01 Glucose POC Glucose 201 H 181 H 157 H 05/24/19 05/24/19 05/24/19 04:02 06:07 07:56 Glucose 179 H POC Glucose 207 H 152 H 05/24/19 11:55 Glucose POC Glucose 121 H Outpatient Anti-diabetic Regimen: * none * A1c = 7.4 % 04/25/19 ASSESSMENT: 05/24/19: * Patient received total of 141 units of insulin yesterday, of which 60 were basal insulin * Patient changed from prednisone to solumedrol 40 iv q 8 hrs - provider had notified pharmacy of change and therefore CF/CR had been tightened last evening * Fasting BSG elevated at 179 mg/dL - will increase to 40 units of Lantus this AM with scale for tonight * Continue same CF/CR. Will also continue overnight checks as patient's BSGs tend to be affected greatly when steroids are on board 05/23/19: * Patient received total of 107 units of insulin yesterday, of which 60 units were basal insulin * Steroids changed yesterday from Solm 40 (received on dose in AM to prednisone 40 BID starting last night) * Fasting BSG this am improving from days prior 157 mg/dL - will continue Lantus 30 this AM, feel that BSGs will improve with steroids being tapered, therefore will add scale for Lantus tonight PLAN FOR INPATIENT GLYCEMIC CONTROL: * Basal insulin * Lantus 40 Qam * Lantus HS per scale : for BSG 180 or less - give 30 units, for BSG greater than 180 - give 35 units * Bolus insulin - tighten * NovoLog per scale ACHS plus 0000 and 0400 * Correction Factor: 10 mg/dL/unit * Nutritional / Prandial insulin: 1 unit per 3 gm CHO consumed * Please note that the plan above was derived based on current level of insulin resistance and hospital stress. These recommendations are appropriate for inpatient admission only. Plan of care upon discharge will need to be reassessed to avoid potential outpatient hypo/hyperglycemia.
--- NOTE | 2019-05-24 14:29 | Ultrasound Report ---
BILATERAL LOWER EXTREMITY VENOUS DOPPLER HISTORY: Leg swelling. COMPARISON STUDY: None. FINDINGS: There is normal compressibility, flow, and augmentation within the right lower extremity de ep venous systems. Only the left posterior tibial, peroneal, and anterior tibial veins were visualize d and are likely patent. The patient was unable to tolerate the remaining examination to evaluate the left common femoral, superficial, or popliteal veins. Therefore, these were not visualized. IMPRESSION: No DVT within the right lower extremity. No DVT within the left calf. The patient was unable to tatyana ate the remaining examination to evaluate the venous structures within the left thigh/popliteal fossa . Electronically signed by: Vidal Keller M.D. 05/24/2019 2:27 PM
[2019-05-24] MEDS ORDERED: IPRATROPIUM BROMIDE NEB SOLN 0.02% 2.5 ML VIAL INH PRN (14:42)
[2019-05-24] MEDS ORDERED: LEVALBUTEROL 1.25MG/0.5ML NEB INH PRN (14:43)
[2019-05-24] MEDS: cefTRIAXone SODIUM 2,000 MG in DEXTROSE 5% 50 ML IV SCH (14:45)
--- NOTE | 2019-05-24 16:01 | Hospitalist Progress Note ---
Date of Service May 24, 2019 Assessment & Plan (1) Chest pain: (1) Chest pain: ACS ruled out Manager Medical Writing consulted ISMO has been changed to IMDUR 30 mg once a day and beta-nasim has been increased No further cardiology work-up (+) recurrence on 05/23/19 at around 6pm EKG: no signs of acute infarct troponins x3 ordered-remained negative minimal relief with nitro Recurrent PE? CTA could not be done due to increasing creatinine INR 1.5 and started on intravenous heparin coumadin 10mg po ordered and will continue current INR is therapeutic Ultrasound of the legs-negative for any DVT CTA has been canceled COPD Exacerbation? d/c Prednisone and resume Solumedrol 40mg q8h (monitor BSG, Pharmacy consulted for Glycemic control) Nebs q4h Clinically improved (2) Palpitations: no tachycardia or tachyarrhythmias noted on monitor may benefit from outpatient cardiac monitoring (3) Chronic diastolic CHF (congestive heart failure) Possible Acute on Chronic Diastolic CHF weight trending up crea also increased to 1.7 Beef Skinner consulted - Lasix IV started -decreased to 20mg q12h today -crea improved to 1.2 - negative fluid balance -weight down from 202 to 199kg - discussed with Nephro SVC - will resume usual Torsemide 20mg BID for now -We will monitor PRP MAHAMED Beef Skinner consulted Creatinine has been improving (4) Indwelling Lloyd catheter present: History of recurrent urinary tract infection Has chronic Lloyd catheter in situ -- Urine culture: E Coli changed Zosyn to Ceftriaxone consulted Urologist -- recommend to maintain Lloyd Cath for now (5) COPD (chronic obstructive pulmonary disease): with mild exacerbation, from CHF? management per #1 (6) Depression with anxiety: stable (7) Chronic pain disorder: pain management consulted discussed with patient, pain better controlled, will wean off/ discontinue IV Dilaudid-- Dilaudid IV x1 tomorrow, then STOP Increasing pain at the back and bilateral inflamed Has been difficult to move around Will give additional dose of 1 medial Dilaudid in the afternoon DVT prophylaxis On intravenous heparin and oral Coumadin Monitor INR CODE STATUS Full Disposition pending Likely discharge in a day or 2 Subjective 05/24 The patient was seen and examined in medical floor He has been complaining of ongoing cough and wheezing Started to have diarrhea from today Feels worse as usual with increasing pain on movement Review of Systems Review of Systems: All systems reviewed and are unremarkable except as noted below Constitutional: + body aches and + fatigue Respiratory: + cough and + wheezing; no dyspnea Cardiovascular: no chest pain Gastrointestinal: + bloating; no abdominal pain, no nausea and no vomiting Musculoskeletal: + back pain (Increasing back pain) Chronic right ankle pain and complaints to have more left ankle pain Neurologic: + generalized weakness Physical Exam Physical Exam: Lying in bed comfortably Constitutional: well developed, well nourished and + morbidly obese; no acute distress and not ill appearing Eyes: PERRL, conjunctivae normal, anicteric sclerae ENMT: external ear and nose normal, oropharynx normal Neck: trachea midline, no thyromegaly Respiratory: + respiratory distress (Minimal wheezing at rest with cough) Auscultation: + diminished lung sounds and + wheezes (Almost gone) Cardiovascular: Rate/Rhythm: regular rate and regular rhythm Heart Sounds: no murmur Extremities: + edema (1+ bilateral which is much improved compared with prior admission) Gastrointestinal (Abdomen): Inspection/Auscultation: + abdomen distended and normal bowel sounds Percussion/Palpation: abdomen soft; abdomen nontender Neurologic: moves all extremities; no focal motor deficits Lymphatic: no cervical or axillary lymphadenopathy Results & Data Vital Signs (Past 12 Hours) Vital Signs Temp Pulse Resp BP Pulse Ox 05/24/19 15:02 36.4 C L 82 20 114/56 L 95 05/24/19 11:14 115 H 16 91 05/24/19 07:25 36.7 C 71 18 151/66 H 95 Laboratory Results [facility] 05/24/19 06:07 Sodium 138 Potassium 4.6 Chloride 104 Carbon Dioxide 28 BUN 37 H Creatinine 1.55 H Glucose 179 H Calcium 8.7 Cardiac Enzymes 05/23/19 05/23/19 05/24/19 Range/Units 19:22 23:31 06:07 Troponin I < 0.015 < 0.015 < 0.015 (0-0.045) ng/ml Medications Administered Current Inpatient Medications Aspirin (Ecotrin Ectab) 81 mg PO QAM [facility] Stop: 06/10/19 08:59 Last Admin: 05/24/19 09:02 Dose: 81 mg Documented by: Cyclobenzaprine HCl (Flexeril) 10 mg PO BID [facility] Stop: 06/09/19 20:59 Last Admin: 05/24/19 09:00 Dose: 10 mg Documented by: Dextrose (Dextrose 50%) 25 - 50 ml IV UD PRN; Protocol PRN Reason: Hypoglycemia Protocol Stop: 06/09/19 20:59 Duloxetine HCl (Cymbalta) 60 mg PO QAM [facility] Stop: 06/10/19 08:59 Last Admin: 05/24/19 09:00 Dose: 60 mg Documented by: Finasteride (Proscar) 5 mg PO QAM [facility] Stop: 06/10/19 08:59 Last Admin: 05/24/19 09:02 Dose: 5 mg Documented by: Fluticasone Propionate (Flonase) 2 sprays NA QAM [facility] Stop: 06/10/19 08:59 Last Admin: 05/24/19 08:58 Dose: 2 sprays Documented by: Gabapentin (Neurontin) 200 mg PO HS [facility] Stop: 06/19/19 20:59 Last Admin: 05/23/19 20:25 Dose: 200 mg Documented by: Gabapentin (Neurontin) 200 mg PO BID@0900,1400 [facility] Stop: 06/19/19 08:59 Last Admin: 05/24/19 14:45 Dose: 200 mg Documented by: Glucagon (Glucagen) 1 mg SQ UD PRN; Protocol PRN Reason: Hypoglycemia Protocol Stop: 06/09/19 20:59 Glucose (Glucose 40%) 15 - 30 gm PO UD PRN; Protocol PRN Reason: Hypoglycemia Protocol Stop: 06/09/19 20:59 Glucose (Dex4 Glucose) 4 - 8 tabs PO UD PRN; Protocol PRN Reason: Hypoglycemia Protocol Stop: 06/09/19 20:59 Hydromorphone HCl (Dilaudid) 1 mg IV DAILY PRN PRN Reason: Severe Pain Stop: 05/25/19 07:59 Last Admin: 05/24/19 09:04 Dose: 1 mg Documented by: Hydroxyzine HCl (Vistaril) 25 mg PO QID PRN PRN Reason: Anxiety Stop: 06/09/19 19:07 Promethazine HCl 12.5 mg/ (Sodium Chloride) 50.5 mls @ 202 mls/hr IV Q6H PRN PRN Reason: Nausea And Vomiting Stop: 06/11/19 14:28 Last Infusion: 05/23/19 23:26 Dose: Infused Documented by: Insulin Human Regular 250 (units/ Sodium Chloride) 250 mls @ 0 mls/hr IV .Q0M [facility]; Protocol Stop: 06/20/19 08:45 Last Titration: 05/22/19 03:25 Dose: 0 units/hr, 0 mls/hr Documented by: Ceftriaxone Sodium 2,000 mg/ (Dextrose) 70 mls @ 100 mls/hr IV Q24H [facility]; Protocol Stop: 05/31/19 13:59 Last Admin: 05/24/19 14:45 Dose: 100 mls/hr Documented by: Methylprednisolone 40 mg/ (Syringe) 0.64 mls @ 1.5 mls/min IV Q8H [facility] Stop: 06/23/19 03:59 Last Admin: 05/24/19 12:14 Dose: 1.5 mls/min Documented by: Heparin Sodium/Dextrose (Heparin Sodium/Dextrose) 25,000 units in 500 mls @ 45 mls/hr IV .Q11H7M [facility]; Protocol Stop: 06/22/19 22:59 Last Admin: 05/24/19 10:53 Dose: 2,250 units/hr, 45 mls/hr Documented by: Insulin Aspart (Novolog Flexpen) 0 units SC ACHS [facility] Stop: 06/20/19 11:29 Last Admin: 05/24/19 13:16 Dose: 22 units Documented by: Insulin Aspart (Novolog Flexpen) 0 units SC 0000,0400 [facility] Stop: 06/22/19 00:00 Last Admin: 05/24/19 04:10 Dose: 7 units Documented by: Insulin Glargine (Lantus Solostar Pen) 0 units SC [facility]; Protocol Stop: 06/22/19 20:59 Insulin Glargine (Lantus Solostar Pen) [facility] Stop: 06/23/19 08:59 Last Admin: 05/24/19 09:33 Dose: 40 units Documented by: Ipratropium [place] (Atrovent 0.02% 0.5mg/2.5ml) 0.5 mg INH Q4R PRN PRN Reason: Shortness Of Breath Or Wheezing Stop: 06/18/19 10:59 Isosorbide Mononitrate (Imdur Extended Rel) 30 mg PO QAM [facility] Stop: 06/11/19 08:59 Last Admin: 05/24/19 09:00 Dose: 30 mg Documented by: Lactobacillus Acidophilus (Floranex) 4 tab PO QIDM [facility] Stop: 06/19/19 16:59 Last Admin: 05/24/19 12:15 Dose: 4 tab Documented by: Levalbuterol HCl (Xopenex 1.25mg/0.5ml Neb) 1.25 mg INH Q4R PRN PRN Reason: Shortness Of Breath Or Wheezin Stop: 06/18/19 10:59 Lidocaine (Lidoderm 5%) 1 patch TD QAM [facility] Stop: 06/13/19 15:44 Last Admin: 05/24/19 09:02 Dose: Not Given Documented by: Lorazepam (Ativan) 1 mg PO Q12H PRN PRN Reason: anxiety Stop: 06/09/19 19:07 Last Admin: 05/18/19 21:20 Dose: 1 mg Documented by: Magnesium Oxide (Mag-Ox) 400 mg PO BID [facility] Stop: 06/09/19 20:59 Last Admin: 05/24/19 09:01 Dose: 400 mg Documented by: Metoprolol Succinate (Toprol Xl) 50 mg PO BID [facility] Stop: 06/18/19 19:44 Last Admin: 05/24/19 08:59 Dose: 50 mg Documented by: Miconazole Nitrate (Desenex) 1 appln EXT PRN PRN PRN Reason: TO RED SKIN FOLDS Stop: 06/21/19 11:34 Miscellaneous (Remove Nicoderm Patch) 1 ea N/A HS [facility] Stop: 06/10/19 20:59 Last Admin: 05/23/19 20:30 Dose: Not Given Documented by: Miscellaneous (Carbohydrates For Hypoglycemia) 15 - 30 gm PO PRN PRN PRN Reason: Hypoglycemia Treatment Stop: 06/09/19 20:59 Miscellaneous (Remove Lidoderm Patch) 1 ea N/A DAILY@2100 [facility] Stop: 06/13/19 20:59 Last Admin: 05/23/19 20:29 Dose: Not Given Documented by: Miscellaneous Information (Consult Glycemic Management Pharmacy) 1 ea N/A UD PRN PRN Reason: Consult Stop: 06/18/19 17:07 Morphine Sulfate (Ms Contin) 15 mg PO Q12 [facility] Stop: 06/06/19 20:59 Last Admin: 05/24/19 08:58 Dose: 15 mg Documented by: Nicotine (Nicoderm Cq) 21 mg TD QAM [facility] Stop: 06/10/19 08:59 Last Admin: 05/24/19 09:03 Dose: 21 mg Documented by: Nitroglycerin (Nitrostat) 0.4 mg SL UD PRN PRN Reason: CHEST PAIN Stop: 06/09/19 19:07 Last Admin: 05/23/19 18:37 Dose: 0.4 mg Documented by: Oxycodone HCl (Roxicodone Immediate Rel) 15 mg PO Q4H [facility] Stop: 06/06/19 19:59 Last Admin: 05/24/19 14:49 Dose: 15 mg Documented by: Pantoprazole Sodium (Protonix) 40 mg PO DAILY [facility]; Protocol Stop: 06/10/19 08:59 Last Admin: 05/24/19 08:59 Dose: 40 mg Documented by: Polyethylene Glycol (Miralax Powder Packet) 17 gm PO BID PRN PRN Reason: Constipation Stop: 06/09/19 19:07 Last Admin: 05/20/19 09:44 Dose: 17 gm Documented by: Senna/Docusate Sodium (Senokot S) 1 tab PO BID [facility] Stop: 06/17/19 00:44 Last Admin: 05/24/19 09:02 Dose: Not Given Documented by: Sodium Biphosphate/Sodium Phosphate (Fleet Enema) 133 ml [place] UD PRN PRN Reason: Constipation Stop: 06/09/19 19:07 Tamsulosin HCl (Flomax) 0.4 mg PO DAILY [facility] Stop: 06/10/19 08:59 Last Admin: 05/24/19 09:03 Dose: 0.4 mg Documented by: Tiotropium [place] (Spiriva) 1 puffs INH DAILY [facility] Stop: 06/10/19 08:59 Last Admin: 05/24/19 08:58 Dose: 1 puffs Documented by: Tramadol HCl (Ultram) 50 mg PO Q4H PRN PRN Reason: Pain Stop: 06/09/19 19:07 Last Admin: 05/24/19 12:20 Dose: 50 mg Documented by: Warfarin Sodium (Coumadin) 7.5 mg PO DAILY@1600 [facility] Stop: 06/15/19 15:59 Last Admin: 05/19/19 15:52 Dose: 7.5 mg Documented by: Warfarin Sodium (Coumadin) 10 mg PO DAILY@1600 [facility] Stop: 06/23/19 15:59 (1) Chest pain Chest pain type: precordial pain Qualified Code(s): R07.2 - Precordial pain
[2019-05-24] MEDS: WARFARIN SOD 10 MG TAB PO SCH (16:22)
[2019-05-24] MEDS: PROMETHAZINE HCL 12.5 MG in SODIUM CHLORIDE 0.9% 50 ML IV PRN (16:23)
[2019-05-25] MEDS: TRAMADOL HCL 50 MG TABLET PO PRN ×5 (00:01→18:40)
[2019-05-25] MEDS: INSULIN ASPART 100 UNITS/ML 3 ML PEN SC SCH ×4 (00:03→12:53)
[2019-05-25] MEDS: OXYCODONE HCL IR 5 MG TAB (IMMEDIATE RELEASE) PO SCH ×6 (02:45→21:54)
[2019-05-25] MEDS: methylPREDNISolone 40 MG in SYRINGE 0 ML IV SCH ×3 (04:09→20:59)
[2019-05-25 06:53] LABS: Basophils # (auto) 0.02 K/uL (0-0.2); Basophils % (auto) 0.1 %; Hematocrit (blood only) 36.3 % (42-52); Hemoglobin 11.5 g/dL (14.0-18.0); Immature Granulocytes # (auto) 0.73 K/uL (0.00-0.02); Immature Granulocytes % (auto) 3.1 %; Lymphocytes # (auto) 1.88 K/uL (1.2-3.4); Mean Corpuscular Hemoglobin 23.5 pg (25-34); Mean Corpuscular Hgb Conc 31.7 g/dL (32-36); Mean Corpuscular Volume 74.2 fL (80-100); Monocytes # (auto) 0.92 K/uL (0.11-0.59); Monocytes % (auto) 3.9 %; Neutrophils # (auto) 19.84 K/uL (1.4-6.5); Neutrophils % (auto) 84.9 %; Platelet Count 296 K/uL (130-400); RDW Coefficient of Variation 20.4 % (11.5-14.5); RDW Standard Deviation 54.8 fL (36.4-46.3); Red Blood Count 4.89 M/uL (4.7-6.1); White Blood Count 23.39 K/uL (4.8-10.8)
[2019-05-25 07:06] LABS: INR 1.3 (0.9-1.1); Prothrombin Time 12.7 Seconds (9.0-12.0)
[2019-05-25 07:19] LABS: Anisocytosis Present; Echinocytes 1+; Microcytosis Present
[2019-05-25 07:25] LABS: BUN Creatinine Ratio 23.8 (10-20); Calcium 9.1 mg/dl (8.5-10.1); Creatinine Clr Calc Pharmacy 125.8 ml/min; Est GFR (African American) 76.9; Est GFR (Non-African American) 66.4
[2019-05-25 08:04] LABS: Partial Thromboplastin Ratio 2.6
[2019-05-25 08:07] LABS: Partial Thromboplastin Time 69.7 Seconds (21.0-31.0)
[2019-05-25] MEDS: HYDROmorphone INJ 1 MG/ML SYRINGE IV SCH ×2 (08:47→12:52)
[2019-05-25] MEDS: MoRPHine SULFATE CR 15 MG TABCR PO SCH ×2 (08:47→21:02)
[2019-05-25] MEDS: NICOTINE 21 MG/24 HR TDSY TD SCH (08:48)
[2019-05-25] MEDS: LACTOBACILLUS ACIDOPHILUS (FLORANEX) TAB PO SCH ×4 (08:48→21:01)
[2019-05-25] MEDS: FINASTERIDE 5 MG TAB PO SCH (08:48)
[2019-05-25] MEDS: CYCLOBENZAPRINE HCL 10 MG TAB PO SCH ×2 (08:48→21:00)
[2019-05-25] MEDS: GABAPENTIN 100 MG CAP PO SCH ×3 (08:49→21:03)
[2019-05-25] MEDS: LIDOCAINE 5% 1 PATCH TD SCH (08:49)
[2019-05-25] MEDS: MAGNESIUM OXIDE 400 MG TAB PO SCH ×2 (08:49→21:02)
[2019-05-25] MEDS: FLUTICASONE PROPIONATE NA SPR 16 GM BTL SCH (08:50)
[2019-05-25] MEDS: METOPROLOL SUCC 50MG EXT REL TAB PO SCH ×2 (08:50→21:01)
[2019-05-25] MEDS: ISOSORBIDE MONO EXTENDED REL 30 MG TABCR PO SCH (08:50)
[2019-05-25] MEDS: DULOXETINE HCL 60 MG CAP PO SCH (08:50)
[2019-05-25] MEDS: ASPIRIN 81 MG ECTAB PO SCH (08:50)
[2019-05-25] MEDS: TAMSULOSIN HCL 0.4 MG CAP PO SCH (08:50)
[2019-05-25] MEDS: DOCUSATE SODIUM/SENNA 50/8.6MG TAB PO SCH ×2 (08:51→21:02)
[2019-05-25] MEDS: PANTOprazole 40 MG TAB PO SCH (08:51)
[2019-05-25] MEDS: TIOTROPIUM BROMIDE 5 PUFF/90 MCG INH INH SCH (08:51)
[2019-05-25] MEDS: INSULIN GLARGINE SOLOSTAR 100 UNITS/ML 3 ML PEN SC SCH ×2 (08:52→21:35)
[2019-05-25] MEDS: HEPARIN SODIUM/DEXTROSE 25,000 UNITS/500 ML BAG IV SCH ×2 (09:10→21:07)
[2019-05-25] MEDS: PROMETHAZINE HCL 12.5 MG in SODIUM CHLORIDE 0.9% 50 ML IV PRN ×2 (10:33→21:31)
[2019-05-25] MEDS: cefTRIAXone SODIUM 2,000 MG in DEXTROSE 5% 50 ML IV SCH (14:11)
--- NOTE | 2019-05-25 14:47 | Nephrology Progress Note ---
Date of Service May 25, 2019 Assessment & Plan (1) MAHAMED (acute kidney injury): baseline creatinine is 1.2-1.3. w/ aggressive diuresis, his renal function went overnight from 1.0>1.6, improved to 1.3 today. he is 14.2 L negative by I/O over the past 6 days, though I suspect some intake missed b/c weight has not changed as drastically as these #I/O suggest. has not had iv contrast ; is also getting ceftriaxone for catheter associated UTI which could in theory cause ATN; diuretics likelier cause -stopped torsemide, spironolactone yesterday and would cont to hold; consider restart tomorrow if labs stable -IV lasix 20 mg prn sob only for now -daily bmp (2) Chronic diastolic CHF (congestive heart failure): pt takes torsemide 20 mg bid and K 10 mEq po bid and spironolactone 50 mg bid from prior to admission; not floridly overloaded on exam generally. he is 14 liters negative since 05/20 by I/O; wt is labile but not climbing -currently w/ active chest pain w/ ACS ruled out yesterday; ECG being repeated currently; note he is on heparin gtt -assuming no active ACS, w/ clear CXR and worsening renal function hold diuretics -recommend < 2 gm daily Na diet and FR 1.5 L daily -needs daily STANDING wts pls -daily bmp while in house ; bmp w/ in a week of d/c -ordered recheck cbc for am given abtx for UTI and chronic anemia (3) Urinary retention: per urology Subjective seen on rounds [id number]; states "I feel like crap" from chest pain, hand/leg swelling Review of Systems Review of Systems: All systems reviewed & are unremarkable except as noted in HPI & below Physical Exam Constitutional: well developed and + morbidly obese sitting in bed on ra Eyes: EOM intact bilaterally ENMT: Ears: no external ear abnormality Nose: no external nose abnormality Mouth: + dry oral mucous membranes Neck: no nuchal rigidity Respiratory: normal respiratory effort and + prolonged expiratory phase Auscultation: + diminished lung sounds and + wheezes (diffuse and less today) Cardiovascular: Rate/Rhythm: regular rate and regular rhythm Extremities: + edema (trace BLE edema) Gastrointestinal (Abdomen): Inspection/Auscultation: normal bowel sounds Percussion/Palpation: abdomen soft; abdomen nontender Musculoskeletal: Extremities: strength 5/5 throughout Skin: no rashes, warm and dry Neurologic: bolivar, fluent speech, no tremor Psychiatric: A+Ox3, euthymic affect Orientation: alert and oriented x 3 Speech: normal rate/rhythm/volume of speech Affect: + anxious affect Genitourinary: fontaine Results & Data Vital Signs (Past 12 Hours) Vital Signs Temp Pulse Resp BP Pulse Ox 05/25/19 07:29 36.8 C 86 18 107/68 99 Laboratory Results Abnormal lab results 05/24/19 05/24/19 05/24/19 Range/Units 16:49 20:21 23:43 WBC (4.8-10.8) K/uL Hgb (14.0-18.0) g/dL Hct (42-52) % MCV (80-100) fL MCH (25-34) pg MCHC (32-36) g/dL RDW Std Deviation (36.4-46.3) fL RDW Coeff of Megan (11.5-14.5) % Immature Gran # (Auto) (0.00-0.02) K/uL Neut # (Auto) (1.4-6.5) K/uL Blanco # (Auto) (0.11-0.59) K/uL PT (9.0-12.0) Seconds INR (0.9-1.1) APTT (21.0-31.0) Seconds BUN (7-18) mg/dl BUN/Creatinine Ratio (10-20) Glucose (70-99) mg/dl POC Glucose 144 H 210 H 150 H (70-99) 05/25/19 05/25/19 05/25/19 Range/Units 04:01 04:03 06:27 WBC (4.8-10.8) K/uL Hgb (14.0-18.0) g/dL Hct (42-52) % MCV (80-100) fL MCH (25-34) pg MCHC (32-36) g/dL RDW Std Deviation (36.4-46.3) fL RDW Coeff of Megan (11.5-14.5) % Immature Gran # (Auto) (0.00-0.02) K/uL Neut # (Auto) (1.4-6.5) K/uL Blanco # (Auto) (0.11-0.59) K/uL PT 12.7 H (9.0-12.0) Seconds INR 1.3 H (0.9-1.1) APTT (21.0-31.0) Seconds BUN (7-18) mg/dl BUN/Creatinine Ratio (10-20) Glucose (70-99) mg/dl POC Glucose 311 H* 166 H (70-99) 05/25/19 05/25/19 05/25/19 Range/Units 06:27 06:27 06:27 WBC 23.39 H (4.8-10.8) K/uL Hgb 11.5 L (14.0-18.0) g/dL Hct 36.3 L (42-52) % MCV 74.2 L (80-100) fL MCH 23.5 L (25-34) pg MCHC 31.7 L (32-36) g/dL RDW Std Deviation 54.8 H (36.4-46.3) fL RDW Coeff of Megan 20.4 H (11.5-14.5) % Immature Gran # (Auto) 0.73 H (0.00-0.02) K/uL Neut # (Auto) 19.84 H (1.4-6.5) K/uL Blanco # (Auto) 0.92 H (0.11-0.59) K/uL PT (9.0-12.0) Seconds INR (0.9-1.1) APTT 69.7 H* (21.0-31.0) Seconds BUN 30 H (7-18) mg/dl BUN/Creatinine Ratio 23.8 H (10-20) Glucose 180 H (70-99) mg/dl POC Glucose (70-99) 05/25/19 05/25/19 Range/Units 08:11 11:57 WBC (4.8-10.8) K/uL Hgb (14.0-18.0) g/dL Hct (42-52) % MCV (80-100) fL MCH (25-34) pg MCHC (32-36) g/dL RDW Std Deviation (36.4-46.3) fL RDW Coeff of Megan (11.5-14.5) % Immature Gran # (Auto) (0.00-0.02) K/uL Neut # (Auto) (1.4-6.5) K/uL Blanco # (Auto) (0.11-0.59) K/uL PT (9.0-12.0) Seconds INR (0.9-1.1) APTT (21.0-31.0) Seconds BUN (7-18) mg/dl BUN/Creatinine Ratio (10-20) Glucose (70-99) mg/dl POC Glucose 167 H 199 H (70-99)
[2019-05-25 14:48] LABS: Partial Thromboplastin Ratio 2.3
[2019-05-25 14:52] LABS: Partial Thromboplastin Time 62.3 Seconds (21.0-31.0)
[2019-05-25] MEDS: NITROGLYCERIN SL 0.4 MG/TAB TAB SL PRN ×2 (15:36→15:55)
[2019-05-25] MEDS: WARFARIN SOD 10 MG TAB PO SCH (15:54)
--- NOTE | 2019-05-25 16:15 | Hospitalist Progress Note ---
Date of Service May 25, 2019 Assessment & Plan (1) Chest pain: (1) Chest pain: ACS ruled out Steel Plate Printer consulted ISMO has been changed to IMDUR 30 mg once a day and beta-nasim has been increased No further cardiology work-up (+) recurrence on 05/23/19 at around 6pm EKG: no signs of acute infarct troponins x3 ordered-remained negative minimal relief with nitro Chest pain seems to be noncardiac Recurrent PE? CTA could not be done due to increasing creatinine INR 1.5 and started on intravenous heparin coumadin 10mg po ordered and will continue current INR is therapeutic Ultrasound of the legs-negative for any DVT CTA has been canceled Denies any increasing shortness of breath or chest pain COPD Exacerbation d/c Prednisone and resume Solumedrol 40mg q8h (monitor BSG, Pharmacy consulted for Glycemic control) Nebs q4h Clinically improved (2) Palpitations: no tachycardia or tachyarrhythmias noted on monitor may benefit from outpatient cardiac monitoring Did not have any episode of tachycardia while his heart was monitored in the hospital (3) Chronic diastolic CHF (congestive heart failure) Possible Acute on Chronic Diastolic CHF weight trending up crea also increased to 1.7 Watchguard consulted - Lasix IV started -decreased to 20mg q12h today -crea improved to 1.2 - negative fluid balance -weight down from 202 to 199kg - discussed with Nephro SVC - will resume usual Torsemide 20mg BID for now -Creatinine has been normalized -We will start his usual doses of diuretics MAHAMED Watchguard consulted Creatinine has been improving Creatinine is normal (4) Indwelling Lloyd catheter present: History of recurrent urinary tract infection Has chronic Lloyd catheter in situ -- Urine culture: E Coli changed Zosyn to Ceftriaxone consulted Urologist -- recommend to maintain Lloyd Cath for now (5) COPD (chronic obstructive pulmonary disease): with mild exacerbation, from CHF? management per #1 (6) Depression with anxiety: stable (7) Chronic pain disorder: pain management consulted discussed with patient, pain better controlled, will wean off/ discontinue IV Dilaudid-- Dilaudid IV x1 tomorrow, then STOP Increasing pain at the back and bilateral inflamed Has been difficult to move around Will give additional dose of 1 medial Dilaudid in the afternoon Requiring 2 doses of Dilaudid in the morning and in the afternoon for increasing pain with movement DVT prophylaxis On intravenous heparin and oral Coumadin Monitor INR-INR is subtherapeutic at 1.3 We will supervise the dose of Coumadin 10 mg daily Continue heparin and oral Coumadin CODE STATUS Full Disposition pending Likely discharge in a day or 2 (2) Leukocytosis: White cell count noted to be more than 23,000 We will get chest x-ray and rule out C. difficile diarrhea Subjective 05/24 The patient was seen and examined in medical floor He has been complaining of ongoing cough and wheezing Started to have diarrhea from today Feels worse as usual with increasing pain on movement 05/25 The patient was seen and examined in medical floor He has been complaining of more back pain especially with movement His shortness of breath is minimal Still complains of diarrhea without any abdominal pain He denies any chest pain and/or palpitation Review of Systems Review of Systems: All systems reviewed and are unremarkable except as noted below Constitutional: + body aches, + fatigue and + weakness Respiratory: + wheezing Gastrointestinal: + bloating; no abdominal pain, no nausea and no vomiting Musculoskeletal: + back pain (Increasing back pain) Chronic right ankle pain and complaints to have more left ankle pain Neurologic: + generalized weakness Physical Exam Physical Exam: Lying in bed with minimal discomfort secondary to pain Constitutional: well developed, well nourished and + morbidly obese; no acute distress and not ill appearing Eyes: PERRL, conjunctivae normal, anicteric sclerae ENMT: external ear and nose normal, oropharynx normal Neck: trachea midline, no thyromegaly Respiratory: + respiratory distress (Minimal wheezing at rest with cough) Auscultation: + diminished lung sounds and + wheezes (Almost gone) Cardiovascular: Rate/Rhythm: regular rate and regular rhythm Heart Sounds: no murmur Extremities: + edema (1+ bilateral which is much improved compared with prior admission) Gastrointestinal (Abdomen): Inspection/Auscultation: + abdomen distended and normal bowel sounds Percussion/Palpation: abdomen soft; abdomen nontender Musculoskeletal: No acute arthritis in any joints Neurologic: moves all extremities; no focal motor deficits Lymphatic: no cervical or axillary lymphadenopathy Results & Data Vital Signs (Past 12 Hours) Vital Signs Temp Pulse Resp BP Pulse Ox 05/25/19 15:53 67 106/67 95 05/25/19 15:28 68 108/72 94 05/25/19 14:52 36.7 C 71 20 105/69 96 05/25/19 07:29 36.8 C 86 18 107/68 99 (1) Chest pain Chest pain type: precordial pain Qualified Code(s): R07.2 - Precordial pain (2) Leukocytosis Leukocytosis type: unspecified Qualified Code(s): D72.829 - Elevated white blood cell count, unspecified
[2019-05-25] MEDS: INSULIN ASPART 100 UNITS/ML VIAL SC SCH ×2 (17:40→21:02)
--- NOTE | 2019-05-25 19:12 | XRay Report ---
XR chest 2V routine CLINICAL HISTORY: Shortness of breath. Suspected pneumonia. COMPARISON STUDY: 05/23/2019 FINDINGS: The heart is borderline enlarged. There is no focal pulmonary consolidation. There is basil ar atelectasis. There is minor blunting of the left posterior costophrenic angle.[ IMPRESSION: 1. Minimal blunting of the left posterior costophrenic angle 2. Minor basilar atelectasis 3. No evidence for failure. No evidence for lobar consolidation Electronically signed by: Luis Castro M.D. 05/25/2019 7:11 PM
[2019-05-25] MEDS: LORazepam 1 MG TAB PO PRN (20:59)
[2019-05-26] MEDS: OXYCODONE HCL IR 5 MG TAB (IMMEDIATE RELEASE) PO SCH ×6 (02:03→21:59)
[2019-05-26] MEDS: methylPREDNISolone 40 MG in SYRINGE 0 ML IV SCH ×3 (04:04→20:44)
[2019-05-26 07:30] LABS: Hematocrit (blood only) 36.6 % (42-52); Hemoglobin 11.6 g/dL (14.0-18.0); Mean Corpuscular Hemoglobin 23.6 pg (25-34); Mean Corpuscular Hgb Conc 31.7 g/dL (32-36); Mean Corpuscular Volume 74.5 fL (80-100); Mean Platelet Volume 10.3 fL (7.4-10.4); Platelet Count 294 K/uL (130-400); RDW Coefficient of Variation 20.4 % (11.5-14.5); RDW Standard Deviation 54.5 fL (36.4-46.3); Red Blood Count 4.91 M/uL (4.7-6.1); White Blood Count 24.18 K/uL (4.8-10.8)
[2019-05-26 07:50] LABS: INR 1.2 (0.9-1.1); Partial Thromboplastin Ratio 2.6; Prothrombin Time 12.6 Seconds (9.0-12.0)
[2019-05-26 07:53] LABS: Partial Thromboplastin Time 70.5 Seconds (21.0-31.0)
[2019-05-26 07:55] LABS: Anisocytosis Present; Basophils # (auto) 0.02 K/uL (0-0.2); Basophils % (auto) 0.1 %; Immature Granulocytes # (auto) 0.64 K/uL (0.00-0.02); Immature Granulocytes % (auto) 2.6 %; Lymphocytes # (auto) 1.85 K/uL (1.2-3.4); Lymphocytes % (auto) 7.7 %; Monocytes # (auto) 0.96 K/uL (0.11-0.59); Neutrophils # (auto) 20.71 K/uL (1.4-6.5); Neutrophils % (auto) 85.6 %
[2019-05-26 07:59] LABS: BUN Creatinine Ratio 24.7 (10-20); Calcium 9.2 mg/dl (8.5-10.1); Creatinine Clr Calc Pharmacy 122.6 ml/min; Est GFR (African American) 74.8; Est GFR (Non-African American) 64.5; Potassium 5.2 mmol/L (3.5-5.1)
--- NOTE | 2019-05-26 08:25 | Pharmacy Report ---
Pharmacy Glycemic Short Note 2 - Date of Service May 26, 2019 - Glycemic Short BSG Results (Last 24 hours): 05/25/19 05/25/19 05/25/19 08:11 11:57 17:04 Glucose POC Glucose 167 H 199 H 132 H 05/25/19 05/26/19 05/26/19 20:28 07:14 08:01 Glucose 163 H POC Glucose 104 H 150 H Outpatient Anti-diabetic Regimen: * none * A1c = 7.4 % 04/25/19 ASSESSMENT: 05/26/19: * Blood sugars mostly at goal, pt remains on Solu-medrol 40mg IV Q8H for COPD exacerbation. I tightened CR slightly to 2.5 yesterday, which has been helpful for blood sugar control. * No further changes at this time, will need to decrease insulin doses as steroids taper. * Patient will need DM outpatient regimen on discharge. 05/24/19: * Patient received total of 141 units of insulin yesterday, of which 60 were basal insulin * Patient changed from prednisone to solumedrol 40 iv q 8 hrs - provider had notified pharmacy of change and therefore CF/CR had been tightened last evening * Fasting BSG elevated at 179 mg/dL - will increase to 40 units of Lantus this AM with scale for tonight * Continue same CF/CR. Will also continue overnight checks as patient's BSGs tend to be affected greatly when steroids are on board 05/23/19: * Patient received total of 107 units of insulin yesterday, of which 60 units were basal insulin * Steroids changed yesterday from Solm 40 (received on dose in AM to prednisone 40 BID starting last night) * Fasting BSG this am improving from days prior 157 mg/dL - will continue Lantus 30 this AM, feel that BSGs will improve with steroids being tapered, therefore will add scale for Lantus tonight PLAN FOR INPATIENT GLYCEMIC CONTROL: * Basal insulin * Lantus 40 Qam * Lantus HS per scale : for BSG 180 or less - give 30 units, for BSG greater than 180 - give 35 units * Bolus insulin - tighten * NovoLog per scale ACHS * Correction Factor: 10 mg/dL/unit * Nutritional / Prandial insulin: 1 unit per 2.5 gm CHO consumed DISCHARGE RECOMMENDATIONS: * Patient on no antidiabetic mediations at home, A1c 7.4% * Patient with MAHAMED as inpatient and on IV steroids at this time, patient will need some kind of DM treatment, to be determined prior to discharge * Please note that the plan above was derived based on current level of insulin resistance and hospital stress. These recommendations are appropriate for inpatient admission only. Plan of care upon discharge will need to be reassessed to avoid potential outpatient hypo/hyperglycemia.
[2019-05-26] MEDS: LIDOCAINE 5% 1 PATCH TD SCH (08:43)
[2019-05-26] MEDS: HEPARIN SODIUM/DEXTROSE 25,000 UNITS/500 ML BAG IV SCH ×2 (08:47→21:15)
[2019-05-26] MEDS: LACTOBACILLUS ACIDOPHILUS (FLORANEX) TAB PO SCH ×4 (08:47→20:53)
[2019-05-26] MEDS: DULOXETINE HCL 60 MG CAP PO SCH (08:48)
[2019-05-26] MEDS: ASPIRIN 81 MG ECTAB PO SCH (08:48)
[2019-05-26] MEDS: HYDROmorphone INJ 1 MG/ML SYRINGE IV SCH ×2 (08:48→12:53)
[2019-05-26] MEDS: CYCLOBENZAPRINE HCL 10 MG TAB PO SCH ×2 (08:48→20:52)
[2019-05-26] MEDS: ISOSORBIDE MONO EXTENDED REL 30 MG TABCR PO SCH (08:49)
[2019-05-26] MEDS: FLUTICASONE PROPIONATE NA SPR 16 GM BTL SCH (08:49)
[2019-05-26] MEDS: TAMSULOSIN HCL 0.4 MG CAP PO SCH (08:49)
[2019-05-26] MEDS: MoRPHine SULFATE CR 15 MG TABCR PO SCH ×2 (08:50→20:45)
[2019-05-26] MEDS: GABAPENTIN 100 MG CAP PO SCH ×3 (08:50→20:50)
[2019-05-26] MEDS: NICOTINE 21 MG/24 HR TDSY TD SCH (08:50)
[2019-05-26] MEDS: DOCUSATE SODIUM/SENNA 50/8.6MG TAB PO SCH ×2 (08:50→20:55)
[2019-05-26] MEDS: MAGNESIUM OXIDE 400 MG TAB PO SCH ×2 (08:50→20:51)
[2019-05-26] MEDS: FINASTERIDE 5 MG TAB PO SCH (08:51)
[2019-05-26] MEDS: INSULIN ASPART 100 UNITS/ML VIAL SC SCH ×4 (08:51→20:48)
[2019-05-26] MEDS: PANTOprazole 40 MG TAB PO SCH (08:51)
[2019-05-26] MEDS: METOPROLOL SUCC 50MG EXT REL TAB PO SCH ×2 (08:51→20:55)
[2019-05-26] MEDS: INSULIN GLARGINE SOLOSTAR 100 UNITS/ML 3 ML PEN SC SCH ×2 (08:53→21:18)
[2019-05-26] MEDS: PROMETHAZINE HCL 12.5 MG in SODIUM CHLORIDE 0.9% 50 ML IV PRN ×2 (09:02→21:15)
[2019-05-26] MEDS: TIOTROPIUM BROMIDE 5 PUFF/90 MCG INH INH SCH (09:02)
[2019-05-26] MEDS: TRAMADOL HCL 50 MG TABLET PO PRN ×4 (10:03→22:37)
[2019-05-26] MEDS: DOXYCYCLINE HYCLATE 100 MG in DEXTROSE 5% 100 ML IV SCH ×2 (12:53→23:55)
[2019-05-26] MEDS: cefTRIAXone SODIUM 2,000 MG in DEXTROSE 5% 50 ML IV SCH (14:13)
[2019-05-26 14:22] LABS: Partial Thromboplastin Ratio 2.5
[2019-05-26 14:47] LABS: Partial Thromboplastin Time 66.6 Seconds (21.0-31.0)
--- NOTE | 2019-05-26 15:38 | Hospitalist Progress Note ---
Date of Service May 26, 2019 Assessment & Plan (1) Chest pain: (1) Chest pain: ACS ruled out Cooker Mechanic consulted ISMO has been changed to IMDUR 30 mg once a day and beta-nasim has been increased No further cardiology work-up (+) recurrence on 05/23/19 at around 6pm EKG: no signs of acute infarct troponins x3 ordered-remained negative minimal relief with nitro Chest pain seems to be noncardiac Recurrent PE? CTA could not be done due to increasing creatinine INR 1.5 and started on intravenous heparin coumadin 10mg po ordered and will continue current INR is therapeutic Ultrasound of the legs-negative for any DVT CTA has been canceled Denies any increasing shortness of breath or chest pain COPD Exacerbation d/c Prednisone and resume Solumedrol 40mg q8h (monitor BSG, Pharmacy consulted for Glycemic control) Nebs q4h Clinically improved (2) Palpitations: no tachycardia or tachyarrhythmias noted on monitor may benefit from outpatient cardiac monitoring Did not have any episode of tachycardia while his heart was monitored in the hospital (3) Chronic diastolic CHF (congestive heart failure) Possible Acute on Chronic Diastolic CHF weight trending up crea also increased to 1.7 Arranger Assembler consulted - Lasix IV started -decreased to 20mg q12h today -crea improved to 1.2 - negative fluid balance -weight down from 202 to 199kg - discussed with Nephro SVC - will resume usual Torsemide 20mg BID for now -Creatinine has been normalized -We will start his usual doses of diuretics MAHAMED Arranger Assembler consulted Creatinine has been improving Creatinine is normal (4) Indwelling Lloyd catheter present: History of recurrent urinary tract infection Has chronic Lloyd catheter in situ -- Urine culture: E Coli changed Zosyn to Ceftriaxone consulted Urologist -- recommend to maintain Lloyd Cath for now (5) COPD (chronic obstructive pulmonary disease): with mild exacerbation, from CHF? management per #1 (6) Depression with anxiety: stable (7) Chronic pain disorder: pain management consulted discussed with patient, pain better controlled, will wean off/ discontinue IV Dilaudid-- Dilaudid IV x1 tomorrow, then STOP Increasing pain at the back and bilateral inflamed Has been difficult to move around Will give additional dose of 1 medial Dilaudid in the afternoon Requiring 2 doses of Dilaudid in the morning and in the afternoon for increasing pain with movement DVT prophylaxis On intravenous heparin and oral Coumadin Monitor INR-INR is subtherapeutic at 1.3 We will supervise the dose of Coumadin 10 mg daily Continue heparin and oral Coumadin Remains subtherapeutic Continue oral Coumadin 10 mg daily with intravenous heparin for now CODE STATUS Full Disposition pending Likely discharge in a day or 2 (2) Leukocytosis: White cell count noted to be more than 23,000 Has been getting ceftriaxone for UTI We will get chest x-ray and rule out C. difficile diarrhea Chest x-ray shows possible retrocardiac shadow Will start intravenous doxycycline Subjective 05/24 The patient was seen and examined in medical floor He has been complaining of ongoing cough and wheezing Started to have diarrhea from today Feels worse as usual with increasing pain on movement 05/25 The patient was seen and examined in medical floor He has been complaining of more back pain especially with movement His shortness of breath is minimal Still complains of diarrhea without any abdominal pain He denies any chest pain and/or palpitation 05/26 The patient was seen and examined in medical floor He does not have any new complaints except ongoing pain No fever and chills but white count seems to be elevated to 24,000 His INR remains low at 1.2 in spite of 10 mg Coumadin daily Review of Systems Review of Systems: All systems reviewed and are unremarkable except as noted below Constitutional: + body aches, + fatigue and + weakness Respiratory: + wheezing Gastrointestinal: + bloating; no abdominal pain, no nausea and no vomiting Musculoskeletal: + back pain (Increasing back pain) Chronic right ankle pain and complaints to have more left ankle pain Neurologic: + generalized weakness Physical Exam Physical Exam: Lying in bed comfortably Constitutional: well developed, well nourished and + morbidly obese; no acute distress and not ill appearing Eyes: PERRL, conjunctivae normal, anicteric sclerae ENMT: external ear and nose normal, oropharynx normal Neck: trachea midline, no thyromegaly Respiratory: + respiratory distress (Minimal wheezing at rest with cough) Auscultation: + diminished lung sounds, + crackles (Minimal crackles left base) and + wheezes (Almost gone) Cardiovascular: Rate/Rhythm: regular rate and regular rhythm Heart Sounds: no murmur Extremities: + edema (1+ bilateral which is much improved compared with prior admission) Gastrointestinal (Abdomen): Inspection/Auscultation: + abdomen distended and normal bowel sounds Percussion/Palpation: abdomen soft; abdomen nontender Neurologic: moves all extremities; no focal motor deficits Lymphatic: no cervical or axillary lymphadenopathy Results & Data Vital Signs (Past 12 Hours) Vital Signs Temp Pulse Resp BP Pulse Ox 05/26/19 07:06 36.7 C 61 20 112/72 94 Laboratory Results Short CBC 05/26/19 Range/Units 07:14 WBC 24.18 H (4.8-10.8) K/uL Hgb 11.6 L (14.0-18.0) g/dL Hct 36.6 L (42-52) % Plt Count 294 (130-400) K/uL BMP 05/26/19 07:14 Sodium 136 Potassium 5.2 H Chloride 106 Carbon Dioxide 26 BUN 32 H Creatinine 1.30 Glucose 163 H Calcium 9.2 Cardiac Enzymes 05/25/19 Range/Units 18:32 Troponin I < 0.015 (0-0.045) ng/ml Medications Administered Current Inpatient Medications Aspirin (Ecotrin Ectab) 81 mg PO QA EMPERATRIZ Stop: 06/10/19 08:59 Last Admin: 05/26/19 08:48 Dose: 81 mg Documented by: Cyclobenzaprine HCl (Flexeril) 10 mg PO BID [facility] Stop: 06/09/19 20:59 Last Admin: 05/26/19 08:48 Dose: 10 mg Documented by: Dextrose (Dextrose 50%) 25 - 50 ml IV UD PRN; Protocol PRN Reason: Hypoglycemia Protocol Stop: 06/09/19 20:59 Duloxetine HCl (Cymbalta) 60 mg PO QA EMPERATRIZ Stop: 06/10/19 08:59 Last Admin: 05/26/19 08:48 Dose: 60 mg Documented by: Finasteride (Proscar) 5 mg PO QAM [facility]RI[facility] Stop: 06/10/19 08:59 Last Admin: 05/26/19 08:51 Dose: 5 mg Documented by: Fluticasone Propionate (Flonase) 2 sprays NA QAM [facility]ERATRI[facility] Stop: 06/10/19 08:59 Last Admin: 05/26/19 08:49 Dose: 2 sprays Documented by: Gabapentin (Neurontin) 200 mg PO [facility] Stop: 06/19/19 20:59 Last Admin: 05/25/19 21:03 Dose: 200 mg Documented by: Gabapentin (Neurontin) 200 mg PO BID@0900,1400 [facility] Stop: 06/19/19 08:59 Last Admin: 05/26/19 14:12 Dose: 200 mg Documented by: Glucagon (Glucagen) 1 mg SQ UD PRN; Protocol PRN Reason: Hypoglycemia Protocol Stop: 06/09/19 20:59 Glucose (Glucose 40%) 15 - 30 gm PO UD PRN; Protocol PRN Reason: Hypoglycemia Protocol Stop: 06/09/19 20:59 Glucose (Dex4 Glucose) 4 - 8 tabs PO UD PRN; Protocol PRN Reason: Hypoglycemia Protocol Stop: 06/09/19 20:59 Hydromorphone HCl (Dilaudid) 1 mg IV BID@0900,1300 [facility] Stop: 06/08/19 08:59 Last Admin: 05/26/19 12:53 Dose: 1 mg Documented by: Hydroxyzine HCl (Vistaril) 25 mg PO QID PRN PRN Reason: Anxiety Stop: 06/09/19 19:07 Promethazine HCl 12.5 mg/ (Sodium Chloride) 50.5 mls @ 202 mls/hr IV Q6H PRN PRN Reason: Nausea And Vomiting Stop: 06/11/19 14:28 Last Infusion: 05/26/19 09:21 Dose: Infused Documented by: Ceftriaxone Sodium 2,000 mg/ (Dextrose) 70 mls @ 100 mls/hr IV Q24H [facility]; Protocol Stop: 05/31/19 13:59 Last Infusion: 05/26/19 15:18 Dose: Infused Documented by: Methylprednisolone 40 mg/ (Syringe) 0.64 mls @ 1.5 mls/min IV Q8H [facility] Stop: 06/23/19 03:59 Last Admin: 05/26/19 12:52 Dose: 1.5 mls/min Documented by: Heparin Sodium/Dextrose (Heparin Sodium/Dextrose) 25,000 units in 500 mls @ 39 mls/hr IV .[id number] [facility]; Protocol Stop: 06/22/19 22:59 Last Titration: 05/26/19 15:04 Dose: 1,950 units/hr, 39 mls/hr Documented by: Doxycycline Hyclate 100 mg/ (Dextrose) 110 mls @ 50 mls/hr IV Q12H [facility] Stop: 06/02/19 11:59 Last Infusion: 05/26/19 15:18 Dose: Infused Documented by: Insulin Aspart (Novolog Aspart) 0 units SC ACHS [facility] Stop: 06/24/19 16:29 Last Admin: 05/26/19 12:53 Dose: 36 units Documented by: Insulin Glargine (Lantus Solostar Pen) 0 units SC HS [facility]; Protocol Stop: 06/22/19 20:59 Last Admin: 05/25/19 21:35 Dose: 30 units Documented by: Insulin Glargine (Lantus Solostar Pen) 40 units SC QAM [facility] Stop: 06/23/19 08:59 Last Admin: 05/26/19 08:53 Dose: 40 units Documented by: Ipratropium [place] (Atrovent 0.02% 0.5mg/2.5ml) 0.5 mg INH Q4R PRN PRN Reason: Shortness Of Breath Or Wheezing Stop: 06/18/19 10:59 Isosorbide Mononitrate (Imdur Extended Rel) [facility] Stop: 06/11/19 08:59 Last Admin: 05/26/19 08:49 Dose: 30 mg Documented by: Lactobacillus Acidophilus (Floranex) 4 tab PO QIDM [facility] Stop: 06/19/19 16:59 Last Admin: 05/26/19 12:52 Dose: 4 tab Documented by: Levalbuterol HCl (Xopenex 1.25mg/0.5ml Neb) 1.25 mg INH Q4R PRN PRN Reason: Shortness Of Breath Or Wheezin Stop: 06/18/19 10:59 Lidocaine (Lidoderm 5%) 1 [facility] TD [facility] Stop: 06/13/19 15:44 Last Admin: 05/26/19 08:43 Dose: Not Given Documented by: Lorazepam (Ativan) 1 mg PO Q12H PRN PRN Reason: anxiety Stop: 06/09/19 19:07 Last Admin: 05/25/19 20:59 Dose: 1 mg Documented by: Magnesium Oxide (Mag-Ox) 400 mg PO BID [facility] Stop: 06/09/19 20:59 Last Admin: 05/26/19 08:50 Dose: 400 mg Documented by: Metoprolol Succinate (Toprol Xl) 50 mg PO BID [facility] Stop: 06/18/19 19:44 Last Admin: 05/26/19 08:51 Dose: 50 mg Documented by: Miconazole Nitrate (Desenex) 1 appln EXT PRN PRN PRN Reason: TO RED SKIN FOLDS Stop: 06/21/19 11:34 Miscellaneous (Remove Nicoderm Patch) 1 ea N/A HS [facility] Stop: 06/10/19 20:59 Last Admin: 05/25/19 21:02 Dose: Not Given Documented by: Miscellaneous (Carbohydrates For Hypoglycemia) 15 - 30 gm PO PRN PRN PRN Reason: Hypoglycemia Treatment Stop: 06/09/19 20:59 Miscellaneous (Remove Lidoderm Patch) 1 ea N/A DAILY@2100 [facility] Stop: 06/13/19 20:59 Last Admin: 05/25/19 21:02 Dose: Not Given Documented by: Miscellaneous Information (Consult Glycemic Management Pharmacy) 1 ea N/A UD PRN PRN Reason: Consult Stop: 06/18/19 17:07 Morphine Sulfate (Ms Contin) 15 mg PO Q12 [facility] Stop: 06/06/19 20:59 Last Admin: 05/26/19 08:50 Dose: 15 mg Documented by: Nicotine (Nicoderm Cq) 21 mg TD QAM [facility] Stop: 06/10/19 08:59 Last Admin: 05/26/19 08:50 Dose: 21 mg Documented by: Nitroglycerin (Nitrostat) 0.4 mg SL UD PRN PRN Reason: CHEST PAIN Stop: 06/09/19 19:07 Last Admin: 05/25/19 15:55 Dose: 0.4 mg Documented by: Oxycodone HCl (Roxicodone Immediate Rel) 15 mg PO Q4H [facility] Stop: 06/06/19 19:59 Last Admin: 05/26/19 14:13 Dose: 15 mg Documented by: Pantoprazole Sodium (Protonix) 40 mg PO DAILY [facility]; Protocol Stop: 06/10/19 08:59 Last Admin: 05/26/19 08:51 Dose: 40 mg Documented by: Polyethylene Glycol (Miralax Powder Packet) 17 gm PO BID PRN PRN Reason: Constipation Stop: 06/09/19 19:07 Last Admin: 05/20/19 09:44 Dose: 17 gm Documented by: Senna/Docusate Sodium (Senokot S) 1 tab PO BID [facility] Stop: 06/17/19 00:44 Last Admin: 05/26/19 08:50 Dose: 1 tab Documented by: Sodium Biphosphate/Sodium Phosphate (Fleet Enema) 133 ml WI UD PRN PRN Reason: Constipation Stop: 06/09/19 19:07 Tamsulosin HCl (Flomax) 0.4 mg PO DAILY [facility] Stop: 06/10/19 08:59 Last Admin: 05/26/19 08:49 Dose: 0.4 mg Documented by: Tiotropium [place] (Spiriva) 1 puffs INH DAILY [facility] Stop: 06/10/19 08:59 Last Admin: 05/26/19 09:02 Dose: 1 puffs Documented by: Tramadol HCl (Ultram) 50 mg PO Q4H PRN PRN Reason: Pain Stop: 06/09/19 19:07 Last Admin: 05/26/19 14:13 Dose: 50 mg Documented by: Warfarin Sodium (Coumadin) 7.5 mg PO DAILY@1600 [facility] Stop: 06/15/19 15:59 Last Admin: 05/19/19 15:52 Dose: 7.5 mg Documented by: Warfarin Sodium (Coumadin) 10 mg PO DAILY@1600 [facility] Stop: 06/23/19 15:59 Last Admin: 05/25/19 15:54 Dose: 10 mg Documented by: (1) Chest pain Chest pain type: precordial pain Qualified Code(s): R07.2 - Precordial pain (2) Leukocytosis Leukocytosis type: unspecified Qualified Code(s): D72.829 - Elevated white blood cell count, unspecified
[2019-05-26] MEDS: WARFARIN SOD 10 MG TAB PO SCH (15:41)
[2019-05-26] MEDS: LORazepam 1 MG TAB PO PRN (15:43)
--- NOTE | 2019-05-26 16:41 | Nephrology Progress Note ---
Date of Service May 26, 2019 Assessment & Plan (1) MAHAMED (acute kidney injury): baseline creatinine is 1.2-1.3. w/ aggressive diuresis, his renal function went overnight from 1.0>1.6 earlier this week, remains plateau'd at 1.3 today. he is markedly negative on I/O and is losing weight on standing scale w/o rx'd diuretics. has not had iv contrast ; is also getting ceftriaxone for catheter associated UTI which could in theory cause ATN; diuretics likelier cause of worsened function earlier this week -cont to hold torsemide, spironolactone; consider restart tomorrow if labs stable -IV lasix 20 mg prn sob only for now -daily bmp (2) Chronic diastolic CHF (congestive heart failure): pt takes torsemide 20 mg bid and K 10 mEq po bid and spironolactone 50 mg bid from prior to admission; not floridly overloaded on exam generally. he is 14 liters negative since 05/20 by I/O to 05/25; wt is labile and going down w/o diuretics -CXR 05/25 clear >> little evidence of fluid overload; nursing reports he declines breathing txs/inhalers at times >> recommend focus on adherence w/ that if SOB -recommend < 2 gm daily Na diet and FR 1.5 L daily -needs daily STANDING wts pls -daily bmp while in house (3) Urinary retention: per urology Subjective seen on rounds at 1440; still c/o sob exertional and chest pain, cont to state feels "awful;" cont to c/o edema; no N, no GI c/o Review of Systems Review of Systems: All systems reviewed & are unremarkable except as noted in HPI & below Physical Exam Constitutional: well developed and + morbidly obese on RA Eyes: EOM intact bilaterally ENMT: Ears: no external ear abnormality Nose: no external nose abnormality Mouth: + dry oral mucous membranes Neck: no nuchal rigidity Respiratory: normal respiratory effort Auscultation: + diminished lung sounds and + wheezes (diffuse and less today) Cardiovascular: Rate/Rhythm: regular rate and regular rhythm Extremities: + edema (minimal to no BLE edema; trace BL hand dorsi edema) Gastrointestinal (Abdomen): Inspection/Auscultation: normal bowel sounds Percussion/Palpation: abdomen soft; abdomen nontender Musculoskeletal: Extremities: strength 5/5 throughout Skin: no rashes, warm and dry Neurologic: bolivar fluent speech, no tremor Psychiatric: A+Ox3, euthymic affect Orientation: alert and oriented x 3 Speech: normal rate/rhythm/volume of speech Affect: + anxious affect Genitourinary: fontaine w/ clear urine Results & Data Vital Signs (Past 12 Hours) Vital Signs Temp Pulse Resp BP Pulse Ox 05/26/19 16:07 37.0 C 75 20 125/74 96 05/26/19 07:06 36.7 C 61 20 112/72 94 Laboratory Results Abnormal lab results 05/25/19 05/25/19 05/26/19 Range/Units 17:04 20:28 07:14 WBC (4.8-10.8) K/uL Hgb (14.0-18.0) g/dL Hct (42-52) % MCV (80-100) fL MCH (25-34) pg MCHC (32-36) g/dL RDW Std Deviation (36.4-46.3) fL RDW Coeff of Megan (11.5-14.5) % Immature Gran # (Auto) (0.00-0.02) K/uL Neut # (Auto) (1.4-6.5) K/uL Vance # (Auto) (0.11-0.59) K/uL PT 12.6 H (9.0-12.0) Seconds INR 1.2 H (0.9-1.1) APTT 70.5 H* (21.0-31.0) Seconds Potassium (3.5-5.1) mmol/L BUN (7-18) mg/dl BUN/Creatinine Ratio (10-20) Glucose (70-99) mg/dl POC Glucose 132 H 104 H (70-99) 05/26/19 05/26/19 05/26/19 Range/Units 07:14 07:14 08:01 WBC 24.18 H (4.8-10.8) K/uL Hgb 11.6 L (14.0-18.0) g/dL Hct 36.6 L (42-52) % MCV 74.5 L (80-100) fL MCH 23.6 L (25-34) pg MCHC 31.7 L (32-36) g/dL RDW Std Deviation 54.5 H (36.4-46.3) fL RDW Coeff of Megan 20.4 H (11.5-14.5) % Immature Gran # (Auto) 0.64 H (0.00-0.02) K/uL Neut # (Auto) 20.71 H (1.4-6.5) K/uL Vance # (Auto) 0.96 H (0.11-0.59) K/uL PT (9.0-12.0) Seconds INR (0.9-1.1) APTT (21.0-31.0) Seconds Potassium 5.2 H (3.5-5.1) mmol/L BUN 32 H (7-18) mg/dl BUN/Creatinine Ratio 24.7 H (10-20) Glucose 163 H (70-99) mg/dl POC Glucose 150 H (70-99) 05/26/19 05/26/19 05/26/19 Range/Units 11:42 13:55 16:26 WBC (4.8-10.8) K/uL Hgb (14.0-18.0) g/dL Hct (42-52) % MCV (80-100) fL MCH (25-34) pg MCHC (32-36) g/dL RDW Std Deviation (36.4-46.3) fL RDW Coeff of Megan (11.5-14.5) % Immature Gran # (Auto) (0.00-0.02) K/uL Neut # (Auto) (1.4-6.5) K/uL Vance # (Auto) (0.11-0.59) K/uL PT (9.0-12.0) Seconds INR (0.9-1.1) APTT 66.6 H* (21.0-31.0) Seconds Potassium (3.5-5.1) mmol/L BUN (7-18) mg/dl BUN/Creatinine Ratio (10-20) Glucose (70-99) mg/dl POC Glucose 206 H 209 H (70-99)
[2019-05-26 22:29] LABS: Partial Thromboplastin Ratio 2.1
[2019-05-26 22:44] LABS: Partial Thromboplastin Time 56.9 Seconds (21.0-31.0)
[2019-05-27] MEDS: OXYCODONE HCL IR 5 MG TAB (IMMEDIATE RELEASE) PO SCH ×6 (02:06→22:04)
[2019-05-27] MEDS: TRAMADOL HCL 50 MG TABLET PO PRN ×5 (02:30→22:07)
[2019-05-27] MEDS: methylPREDNISolone 40 MG in SYRINGE 0 ML IV SCH (04:06)
[2019-05-27 07:34] LABS: Hematocrit (blood only) 36.5 % (42-52); Hemoglobin 11.7 g/dL (14.0-18.0); Mean Corpuscular Hemoglobin 23.9 pg (25-34); Mean Corpuscular Hgb Conc 32.1 g/dL (32-36); Mean Corpuscular Volume 74.5 fL (80-100); Mean Platelet Volume 10.7 fL (7.4-10.4); Nucleated RBC # (auto) 0.03 K/uL (0-0); Nucleated RBC % (auto) 0.1 %; Platelet Count 308 K/uL (130-400); RDW Coefficient of Variation 20.5 % (11.5-14.5); RDW Standard Deviation 55.2 fL (36.4-46.3); White Blood Count 29.13 K/uL (4.8-10.8)
[2019-05-27 07:56] LABS: INR 2.5 (0.9-1.1); Partial Thromboplastin Ratio 1.9; Prothrombin Time 23.9 Seconds (9.0-12.0)
[2019-05-27 07:57] LABS: Partial Thromboplastin Time 52.4 Seconds (21.0-31.0)
[2019-05-27] MEDS: LACTOBACILLUS ACIDOPHILUS (FLORANEX) TAB PO SCH ×4 (08:55→20:51)
[2019-05-27] MEDS: DULOXETINE HCL 60 MG CAP PO SCH (08:56)
[2019-05-27] MEDS: HYDROmorphone INJ 1 MG/ML SYRINGE IV SCH ×2 (08:57→13:03)
[2019-05-27] MEDS: ASPIRIN 81 MG ECTAB PO SCH (08:58)
[2019-05-27] MEDS: TAMSULOSIN HCL 0.4 MG CAP PO SCH (08:58)
[2019-05-27] MEDS: CYCLOBENZAPRINE HCL 10 MG TAB PO SCH ×2 (08:58→20:51)
[2019-05-27] MEDS: FLUTICASONE PROPIONATE NA SPR 16 GM BTL SCH (08:59)
[2019-05-27] MEDS: ISOSORBIDE MONO EXTENDED REL 30 MG TABCR PO SCH (08:59)
[2019-05-27] MEDS: MoRPHine SULFATE CR 15 MG TABCR PO SCH ×2 (09:00→20:49)
[2019-05-27] MEDS: MAGNESIUM OXIDE 400 MG TAB PO SCH ×2 (09:00→20:52)
[2019-05-27] MEDS: LIDOCAINE 5% 1 PATCH TD SCH (09:00)
[2019-05-27] MEDS: GABAPENTIN 100 MG CAP PO SCH ×3 (09:01→20:53)
[2019-05-27] MEDS: PANTOprazole 40 MG TAB PO SCH (09:02)
[2019-05-27] MEDS: NICOTINE 21 MG/24 HR TDSY TD SCH (09:02)
[2019-05-27] MEDS: FINASTERIDE 5 MG TAB PO SCH (09:02)
[2019-05-27] MEDS: DOCUSATE SODIUM/SENNA 50/8.6MG TAB PO SCH ×2 (09:03→21:01)
[2019-05-27] MEDS: TIOTROPIUM BROMIDE 5 PUFF/90 MCG INH INH SCH (09:04)
[2019-05-27] MEDS: METOPROLOL SUCC 50MG EXT REL TAB PO SCH ×2 (09:04→20:55)
[2019-05-27] MEDS: INSULIN ASPART 100 UNITS/ML VIAL SC SCH ×4 (09:05→21:14)
[2019-05-27] MEDS: INSULIN GLARGINE SOLOSTAR 100 UNITS/ML 3 ML PEN SC SCH (09:07)
[2019-05-27 09:40] LABS: Anisocytosis Present; Basophils # (auto) 0.04 K/uL (0-0.2); Basophils % (auto) 0.1 %; Immature Granulocytes # (auto) 1.18 K/uL (0.00-0.02); Immature Granulocytes % (auto) 4.1 %; Lymphocytes % (auto) 6.5 %; Monocytes % (auto) 4.5 %; Neutrophils # (auto) 24.71 K/uL (1.4-6.5); Neutrophils % (auto) 84.8 %
[2019-05-27] MEDS: TORSEMIDE 10 MG TAB PO SCH ×2 (10:07→18:05)
[2019-05-27] MEDS: PROMETHAZINE HCL 12.5 MG in SODIUM CHLORIDE 0.9% 50 ML IV PRN ×2 (10:08→16:13)
--- NOTE | 2019-05-27 10:45 | Pharmacy Report ---
Pharmacy Glycemic Short Note 2 - Date of Service May 27, 2019 - Glycemic Short BSG Results (Last 24 hours): 05/26/19 05/26/19 05/26/19 11:42 16:26 20:35 POC Glucose 206 H 209 H 145 H 05/27/19 07:44 POC Glucose 169 H Outpatient Anti-diabetic Regimen: * none * A1c = 7.4 % 04/25/19 ASSESSMENT: * Solumedrol DC this morning. Will need significant reduction in insulin dosing. * Lantus 40 units given this morning. Pt received one dose of Solumedrol 40mg this morning. Will DC PM dose of Lantus * CF/CR need empirically reduced for DC steroids. * Patient will need DM outpatient regimen on based on A1c PLAN FOR INPATIENT GLYCEMIC CONTROL: * Basal insulin: decrease * Lantus 40 Qam today (already given) * DC PM dose of Lantus * Decrease Lantus to 30 units SQ AM starting tomorrow AM * Bolus insulin - loosen * NovoLog per scale ACHS * Correction Factor: 15 mg/dL/unit * Nutritional / Prandial insulin: 1 unit per 4 gm CHO consumed DISCHARGE RECOMMENDATIONS: * Patient on no antidiabetic mediations at home, A1c 7.4% * HbA1c of 6.5% or greater indicates "diagnosis of diabetes" --> ADA recommendation is to "Treat Diabetes" * Recommend first line therapy per ADA guidelines: * First line therapy is Metformin and comprehensive lifestyle changes (weight management, physical activity) * Recommend starting: Metformin XR 500mg PO daily with evening meal. Continue to titrate metformin dosing upwards as recommended. Dosage increases should be made in increments of 500 mg weekly, up to 2,000 mg/day PO, given in divided doses. Doses above 2000 mg/day may be better tolerated if divided and given 3 times per day with meals. Max: 2,550 mg/day PO, in divided doses * Please note that the plan above was derived based on current level of insulin resistance and hospital stress. These recommendations are appropriate for inpatient admission only. Plan of care upon discharge will need to be reassessed to avoid potential outpatient hypo/hyperglycemia.
[2019-05-27] MEDS: DOXYCYCLINE HYCLATE 100 MG in DEXTROSE 5% 100 ML IV SCH (13:03)
[2019-05-27] MEDS ORDERED: LORazepam 0.5 MG/1 ML VIAL IV STA ×2 (13:18→13:40)
[2019-05-27] MEDS ORDERED: Nursing to Pharmacy Communication ONE (13:26)
[2019-05-27] MEDS: cefTRIAXone SODIUM 2,000 MG in DEXTROSE 5% 50 ML IV SCH (14:09)
--- NOTE | 2019-05-27 15:46 | Hospitalist Progress Note ---
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 CTA could not be done due to increasing creatinine INR 1.5 and started on intravenous heparin coumadin 10mg po ordered and will continue current INR is therapeutic Ultrasound of the legs-negative for any DVT CTA has been canceled Denies any increasing shortness of breath or chest pain COPD Exacerbation d/c Prednisone and resume Solumedrol 40mg q8h (monitor BSG, Pharmacy consulted for Glycemic control) Nebs q4h Clinically improved (2) Palpitations: no tachycardia or tachyarrhythmias noted on monitor may benefit from outpatient cardiac monitoring Did not have any episode of tachycardia while his heart was monitored in the hospital (3) Chronic diastolic CHF (congestive heart failure) Possible Acute on Chronic Diastolic CHF weight trending up crea also increased to 1.7 Liquor Rectifier consulted - Lasix IV started -decreased to 20mg q12h today -crea improved to 1.2 - negative fluid balance -weight down from 202 to 199kg - discussed with Nephro SVC - will resume usual Torsemide 20mg BID for now -Creatinine has been normalized -We will start his usual doses of diuretics MAHAMED Liquor Rectifier consulted Creatinine has been improving Creatinine is normal (4) Indwelling Lloyd catheter present: History of recurrent urinary tract infection Has chronic Lloyd catheter in situ -- Urine culture: E Coli changed Zosyn to Ceftriaxone consulted Urologist -- recommend to maintain Lloyd Cath for now (5) COPD (chronic obstructive pulmonary disease): with mild exacerbation, from CHF? management per #1 (6) Depression with anxiety: stable (7) Chronic pain disorder: pain management consulted discussed with patient, pain better controlled, will wean off/ discontinue IV Dilaudid-- Dilaudid IV x1 tomorrow, then STOP Increasing pain at the back and bilateral inflamed Has been difficult to move around Will give additional dose of 1 medial Dilaudid in the afternoon Requiring 2 doses of Dilaudid in the morning and in the afternoon for increasing pain with movement DVT prophylaxis On intravenous heparin and oral Coumadin Monitor INR-INR is subtherapeutic at 1.3 We will supervise the dose of Coumadin 10 mg daily Continue heparin and oral Coumadin Remains subtherapeutic Continue oral Coumadin 10 mg daily with intravenous heparin for now INR is 2.5 today We will continue Coumadin 7.5mg daily CODE STATUS Full Disposition pending Likely discharge in a day or 2 (2) Leukocytosis: White cell count noted to be more than 23,000 Has been getting ceftriaxone for UTI We will get chest x-ray and rule out C. difficile diarrhea Chest x-ray shows possible retrocardiac shadow Will start intravenous doxycycline Leukocytosis he seems to be secondary to use of steroid Will DC IV Solu-Medrol Start oral prednisone from tomorrow 40 mg daily for a total of 5 days Generalized anxiety disorder Has been having more anxiety symptoms We will try to give intravenous Ativan 0.5 mg twice daily as needed Disposition Likely be discharged on Wednesday Subjective 05/24 The patient was seen and examined in medical floor He has been complaining of ongoing cough and wheezing Started to have diarrhea from today Feels worse as usual with increasing pain on movement 05/25 The patient was seen and examined in medical floor He has been complaining of more back pain especially with movement His shortness of breath is minimal Still complains of diarrhea without any abdominal pain He denies any chest pain and/or palpitation 05/26 The patient was seen and examined in medical floor He does not have any new complaints except ongoing pain No fever and chills but white count seems to be elevated to 24,000 His INR remains low at 1.2 in spite of 10 mg Coumadin daily 05/27 The patient was seen and examined in medical floor He has been very anxious and complains to have increasing pain at the back and lower extremities He remains shortness of breath with wheezing Denies any more diarrhea, nausea or vomiting Review of Systems Review of Systems: All systems reviewed and are unremarkable except as noted below Constitutional: + body aches, + fatigue and + weakness Respiratory: + wheezing Gastrointestinal: + bloating; no abdominal pain, no nausea and no vomiting Musculoskeletal: + back pain (Increasing back pain) Chronic right ankle pain and complaints to have more left ankle pain Neurologic: + generalized weakness Physical Exam Physical Exam: Lying in bed with minimal shortness of breath and wheezing Constitutional: well developed, well nourished, + ill appearing and + morbidly obese; no acute distress Eyes: PERRL, conjunctivae normal, anicteric sclerae ENMT: external ear and nose normal, oropharynx normal Neck: trachea midline, no thyromegaly Respiratory: no respiratory distress Auscultation: + diminished lung sounds, + crackles (Minimal crackles left base) and + wheezes (Almost gone) Cardiovascular: Rate/Rhythm: regular rate and regular rhythm Heart Sounds: no murmur Extremities: + edema (1+ bilateral which is much improved compared with prior admission) Gastrointestinal (Abdomen): Inspection/Auscultation: + abdomen distended and normal bowel sounds Percussion/Palpation: abdomen soft; abdomen nontender Neurologic: moves all extremities; no focal motor deficits Lymphatic: no cervical or axillary lymphadenopathy Results & Data Vital Signs (Past 12 Hours) Vital Signs Temp Pulse Resp BP Pulse Ox 05/27/19 07:19 36.8 C 67 18 168/72 H 96 Laboratory Results Short CBC 05/27/19 Range/Units 06:49 WBC 29.13 H (4.8-10.8) K/uL Hgb 11.7 L (14.0-18.0) g/dL Hct 36.5 L (42-52) % Plt Count 308 (130-400) K/uL Medications Administered Current Inpatient Medications [facility] [place] 06/10/19 08:59 Last Admin: 05/27/19 08:58 Dose: 81 mg Documented by: Cyclobenzaprine HCl (Flexeril) 10 mg PO BID [facility] Stop: 06/09/19 20:59 Last Admin: 05/27/19 08:58 Dose: 10 mg Documented by: Dextrose (Dextrose 50%) 25 - 50 ml IV UD PRN; Protocol PRN Reason: Hypoglycemia Protocol Stop: 06/09/19 20:59 Duloxetine HCl (Cymbalta) 60 mg PO QAM [facility] Stop: 06/10/19 08:59 Last Admin: 05/27/19 08:56 Dose: 60 mg Documented by: Finasteride (Proscar) 5 mg PO QAM [facility] Stop: 06/10/19 08:59 Last Admin: 05/27/19 09:02 Dose: 5 mg Documented by: Fluticasone Propionate (Flonase) 2 sprays NA QAM [facility] Stop: 06/10/19 08:59 Last Admin: 05/27/19 08:59 Dose: 2 sprays Documented by: Gabapentin (Neurontin) 200 mg PO HS [facility] Stop: 06/19/19 20:59 Last Admin: 05/26/19 20:50 Dose: 200 mg Documented by: Gabapentin (Neurontin) 200 mg PO BID@0900,1400 [facility] Stop: 06/19/19 08:59 Last Admin: 05/27/19 14:09 Dose: 200 mg Documented by: Glucagon (Glucagen) 1 mg SQ UD PRN; Protocol PRN Reason: Hypoglycemia Protocol Stop: 06/09/19 20:59 Glucose (Glucose 40%) 15 - 30 gm PO UD PRN; Protocol PRN Reason: Hypoglycemia Protocol Stop: 06/09/19 20:59 Glucose (Dex4 Glucose) 4 - 8 tabs PO UD PRN; Protocol PRN Reason: Hypoglycemia Protocol Stop: 06/09/19 20:59 Hydromorphone HCl (Dilaudid) 1 mg IV BID@0900,1300 [facility] Stop: 06/08/19 08:59 Last Admin: 05/27/19 13:03 Dose: 1 mg Documented by: Hydroxyzine HCl (Vistaril) 25 mg PO QID PRN PRN Reason: Anxiety Stop: 06/09/19 19:07 Promethazine HCl 12.5 mg/ (Sodium Chloride) 50.5 mls @ 202 mls/hr IV Q6H PRN PRN Reason: Nausea And Vomiting Stop: 06/11/19 14:28 Last Infusion: 05/27/19 10:29 Dose: Infused Documented by: Ceftriaxone Sodium 2,000 mg/ (Dextrose) 70 mls @ 100 mls/hr IV Q24H [facility]; Protocol Stop: 05/31/19 13:59 Last Infusion: 05/27/19 15:01 Dose: Infused Documented by: Doxycycline Hyclate 100 mg/ (Dextrose) 110 mls @ 50 mls/hr IV Q12H [facility] Stop: 06/02/19 11:59 Last Infusion: 05/27/19 15:19 Dose: Infused Documented by: Lorazepam (Ativan) 0.5 mg in 1 mls @ 0.5 mls/min IV BID@0900,1800 [facility] Stop: 05/28/19 09:01 Insulin Aspart (Novolog Aspart) 0 units SC ACHS [facility] Stop: 06/24/19 16:29 Last Admin: 05/27/19 13:03 Dose: 23 units Documented by: Insulin Glargine (Lantus Solostar Pen) 30 units SC QAM [facility] Stop: 06/27/19 08:59 Ipratropium [place] (Atrovent 0.02% 0.5mg/2.5ml) 0.5 mg INH Q4R PRN PRN Reason: Shortness Of Breath Or Wheezing Stop: 06/18/19 10:59 Isosorbide Mononitrate (Imdur Extended Rel) 30 mg PO QAM [facility] Stop: 06/11/19 08:59 Last Admin: 05/27/19 08:59 Dose: 30 mg Documented by: Lactobacillus Acidophilus (Floranex) 4 tab PO QIDM [facility] Stop: 06/19/19 16:59 Last Admin: 05/27/19 13:05 Dose: 4 tab Documented by: Levalbuterol HCl (Xopenex 1.25mg/0.5ml Neb) 1.25 mg INH Q4R PRN PRN Reason: Shortness Of Breath Or Wheezin Stop: 06/18/19 10:59 Lidocaine (Lidoderm 5%) 1 patch TD [facility] Stop: 06/13/19 15:44 Last Admin: 05/27/19 09:00 Dose: Not Given Documented by: Magnesium Oxide (Mag-Ox) 400 mg PO BID [facility] Stop: 06/09/19 20:59 Last Admin: 05/27/19 09:00 Dose: 400 mg Documented by: Metoprolol Succinate (Toprol Xl) 50 mg PO BID [facility] Stop: 06/18/19 19:44 Last Admin: 05/27/19 09:04 Dose: 50 mg Documented by: Miconazole Nitrate (Desenex) 1 appln EXT PRN PRN PRN Reason: TO RED SKIN FOLDS Stop: 06/21/19 11:34 Miscellaneous (Remove Nicoderm Patch) 1 ea N/A HS [facility] Stop: 06/10/19 20:59 Last Admin: 05/26/19 20:51 Dose: Not Given Documented by: Miscellaneous (Carbohydrates For Hypoglycemia) 15 - 30 gm PO PRN PRN PRN Reason: Hypoglycemia Treatment Stop: 06/09/19 20:59 Miscellaneous (Remove Lidoderm Patch) 1 ea N/A DAILY@2100 [facility] Stop: 06/13/19 20:59 Last Admin: 05/26/19 20:54 Dose: Not Given Documented by: Miscellaneous Information (Consult Glycemic Management Pharmacy) 1 ea N/A UD PRN PRN Reason: Consult Stop: 06/18/19 17:07 Morphine Sulfate (Ms Contin) 15 mg PO Q12 [facility] Stop: 06/06/19 20:59 Last Admin: 05/27/19 09:00 Dose: 15 mg Documented by: Nicotine (Nicoderm Cq) 21 mg TD QAM [facility] Stop: 06/10/19 08:59 Last Admin: 05/27/19 09:02 Dose: 21 mg Documented by: Nitroglycerin (Nitrostat) 0.4 mg SL UD PRN PRN Reason: CHEST PAIN Stop: 06/09/19 19:07 Last Admin: 05/25/19 15:55 Dose: 0.4 mg Documented by: Oxycodone HCl (Roxicodone Immediate Rel) 15 mg PO Q4H [facility] Stop: 06/06/19 19:59 Last Admin: 05/27/19 14:08 Dose: 15 mg Documented by: Pantoprazole Sodium (Protonix) 40 mg PO DAILY [facility]; Protocol Stop: 06/10/19 08:59 Last Admin: 05/27/19 09:02 Dose: 40 mg Documented by: Polyethylene Glycol (Miralax Powder Packet) 17 gm PO BID PRN PRN Reason: Constipation Stop: 06/09/19 19:07 Last Admin: 05/20/19 09:44 Dose: 17 gm Documented by: Senna/Docusate Sodium (Senokot S) 1 tab PO BID [facility] Stop: 06/17/19 00:44 Last Admin: 05/27/19 09:03 Dose: Not Given Documented by: Sodium Biphosphate/Sodium Phosphate (Fleet Enema) 133 ml MO UD PRN PRN Reason: Constipation Stop: 06/09/19 19:07 Tamsulosin HCl (Flomax) 0.4 mg PO DAILY [facility] Stop: 06/10/19 08:59 Last Admin: 05/27/19 08:58 Dose: 0.4 mg Documented by: Tiotropium [place] (Spiriva) 1 puffs INH DAILY [facility] Stop: 06/10/19 08:59 Last Admin: 05/27/19 09:04 Dose: 1 puffs Documented by: Torsemide (Demadex) 20 mg PO BID@0900,1800 [facility] Stop: 06/26/19 08:59 Last Admin: 05/27/19 10:07 Dose: 20 mg Documented by: Tramadol HCl (Ultram) 50 mg PO Q4H PRN PRN Reason: Pain Stop: 06/09/19 19:07 Last Admin: 05/27/19 14:10 Dose: 50 mg Documented by: Warfarin Sodium (Coumadin) 7.5 mg PO DAILY@1600 [facility] Stop: 06/26/19 15:59 (1) Chest pain Chest pain type: precordial pain Qualified Code(s): R07.2 - Precordial pain (2) Leukocytosis Leukocytosis type: unspecified Qualified Code(s): D72.829 - Elevated white blood cell count, unspecified
[2019-05-27] MEDS ORDERED: WARFARIN SOD 7.5 MG TAB PO SCH (16:00)
[2019-05-27] MEDS ORDERED: HYDROmorphone INJ 1 MG/ML SYRINGE IV STA (17:25)
[2019-05-27] MEDS: LORazepam 0.5 MG/1 ML VIAL IV SCH (18:00)
[2019-05-27] MEDS ORDERED: LORazepam 0.5 MG/1 ML VIAL IV SCH (19:00)
[2019-05-28] MEDS: DOXYCYCLINE HYCLATE 100 MG in DEXTROSE 5% 100 ML IV SCH ×2 (00:08→11:55)
[2019-05-28] MEDS: TRAMADOL HCL 50 MG TABLET PO PRN ×6 (02:07→22:10)
[2019-05-28] MEDS: OXYCODONE HCL IR 5 MG TAB (IMMEDIATE RELEASE) PO SCH ×6 (02:08→22:10)
[2019-05-28 08:09] LABS: Basophils # (auto) 0.07 K/uL (0-0.2); Basophils % (auto) 0.3 %; Eosinophils # (auto) 0.05 K/uL (0-0.5); Eosinophils % (auto) 0.2 %; Hematocrit (blood only) 39.8 % (42-52); Hemoglobin 12.3 g/dL (14.0-18.0); Immature Granulocytes # (auto) 0.97 K/uL (0.00-0.02); Immature Granulocytes % (auto) 4.3 %; Lymphocytes # (auto) 4.15 K/uL (1.2-3.4); Lymphocytes % (auto) 18.6 %; Mean Corpuscular Hemoglobin 23.6 pg (25-34); Mean Corpuscular Hgb Conc 30.9 g/dL (32-36); Mean Corpuscular Volume 76.2 fL (80-100); Mean Platelet Volume 10.2 fL (7.4-10.4); Monocytes # (auto) 1.94 K/uL (0.11-0.59); Monocytes % (auto) 8.7 %; Neutrophils # (auto) 15.16 K/uL (1.4-6.5); Neutrophils % (auto) 67.9 %; Nucleated RBC # (auto) 0.08 K/uL (0-0); Nucleated RBC % (auto) 0.4 %; Platelet Count 318 K/uL (130-400); RDW Coefficient of Variation 21.1 % (11.5-14.5); RDW Standard Deviation 57.5 fL (36.4-46.3); Red Blood Count 5.22 M/uL (4.7-6.1); White Blood Count 22.34 K/uL (4.8-10.8)
[2019-05-28 08:15] LABS: INR 3.8 (0.9-1.1); Prothrombin Time 35.4 Seconds (9.0-12.0)
[2019-05-28] MEDS: MoRPHine SULFATE CR 15 MG TABCR PO SCH ×2 (08:22→21:09)
[2019-05-28] MEDS: HYDROmorphone INJ 1 MG/ML SYRINGE IV SCH ×2 (08:23→13:18)
[2019-05-28] MEDS: LORazepam 0.5 MG/1 ML VIAL IV SCH (08:23)
[2019-05-28] MEDS: FLUTICASONE PROPIONATE NA SPR 16 GM BTL SCH (08:24)
[2019-05-28] MEDS: METOPROLOL SUCC 50MG EXT REL TAB PO SCH ×2 (08:24→21:12)
[2019-05-28] MEDS: FINASTERIDE 5 MG TAB PO SCH (08:24)
[2019-05-28] MEDS: PANTOprazole 40 MG TAB PO SCH (08:24)
[2019-05-28] MEDS: ISOSORBIDE MONO EXTENDED REL 30 MG TABCR PO SCH (08:25)
[2019-05-28] MEDS: DULOXETINE HCL 60 MG CAP PO SCH (08:25)
[2019-05-28] MEDS: TAMSULOSIN HCL 0.4 MG CAP PO SCH (08:25)
[2019-05-28] MEDS: MAGNESIUM OXIDE 400 MG TAB PO SCH ×2 (08:25→21:11)
[2019-05-28] MEDS: GABAPENTIN 100 MG CAP PO SCH ×3 (08:25→21:09)
[2019-05-28] MEDS: CYCLOBENZAPRINE HCL 10 MG TAB PO SCH ×2 (08:25→21:12)
[2019-05-28] MEDS: ASPIRIN 81 MG ECTAB PO SCH (08:25)
[2019-05-28] MEDS: TORSEMIDE 10 MG TAB PO SCH (08:26)
[2019-05-28] MEDS: LIDOCAINE 5% 1 PATCH TD SCH (08:26)
[2019-05-28] MEDS: LACTOBACILLUS ACIDOPHILUS (FLORANEX) TAB PO SCH ×4 (08:26→21:11)
[2019-05-28] MEDS: NICOTINE 21 MG/24 HR TDSY TD SCH (08:27)
[2019-05-28 08:34] LABS: Anisocytosis Present; Hypochromasia Present; Microcytosis Present
[2019-05-28 08:38] LABS: BUN Creatinine Ratio 26.8 (10-20); Calcium 9.3 mg/dl (8.5-10.1); Creatinine Clr Calc Pharmacy 97.4 ml/min; Est GFR (African American) 59.5; Est GFR (Non-African American) 51.4
[2019-05-28] MEDS ORDERED: INSULIN GLARGINE SOLOSTAR 100 UNITS/ML 3 ML PEN SC SCH (09:00)
--- NOTE | 2019-05-28 09:20 | Pharmacy Report ---
Pharmacy Glycemic Short Note 2 - Date of Service May 28, 2019 - Glycemic Short BSG Results (Last 24 hours): 05/27/19 05/27/19 05/27/19 11:29 17:05 19:47 Glucose POC Glucose 156 H 135 H 152 H 05/28/19 05/28/19 07:40 08:01 Glucose 95 POC Glucose 106 H Outpatient Anti-diabetic Regimen: * none * A1c = 7.4 % 04/25/19 ASSESSMENT: * Solumedrol DC yesterday. Insulin regimen significantly reduced to prevent hypo. * Pt had been requiring ~ 1 unit/kg insulin per day while on high dose steroids. Expect dosing to drop to ~0.4 units/kg w/o steroids. * SQ basal bolus insulin regimen still needed inhouse based on A1c - but patient can likely dc on oral agents (vs GLIP-1). PLAN FOR INPATIENT GLYCEMIC CONTROL: * Basal insulin: decrease * Decrease Lantus to 20 units (~0.2 units/kg adj bw) SQ AM * Bolus insulin - loosen * NovoLog per scale ACHS * Correction Factor: 20 mg/dL/unit * Nutritional / Prandial insulin: 1 unit per 7 gm CHO consumed DISCHARGE RECOMMENDATIONS: * Patient on no antidiabetic mediations at home, A1c 7.4% * HbA1c of 6.5% or greater indicates "diagnosis of diabetes" --> ADA recommendation is to "Treat Diabetes" * Recommend first line therapy per ADA guidelines: * First line therapy is Metformin and comprehensive lifestyle changes (weight management, physical activity) * It is appropriate to initiate metformin with eGRF >45 ml/min * Recommend starting: Metformin XR 500mg PO daily with evening meal. Continue to titrate metformin dosing upwards as recommended. Dosage increases should be made in increments of 500 mg weekly, up to 2,000 mg/day PO, given in divided doses. Doses above 2000 mg/day may be better tolerated if divided and given 3 times per day with meals. Max: 2,550 mg/day PO, in divided doses * If metformin is not preferred, may consider GLP1, DPP4 (not saxagliptin), or CATES * Based on co-morbidities of CVD, HF, recurrent UTI's, MAHAMED? * Please note that the plan above was derived based on current level of insulin resistance and hospital stress. These recommendations are appropriate for inpatient admission only. Plan of care upon discharge will need to be reassessed to avoid potential outpatient hypo/hyperglycemia.
[2019-05-28] MEDS: DOCUSATE SODIUM/SENNA 50/8.6MG TAB PO SCH ×2 (09:36→21:30)
[2019-05-28] MEDS: INSULIN ASPART 100 UNITS/ML VIAL SC SCH ×4 (09:37→21:30)
[2019-05-28] MEDS: INSULIN GLARGINE SOLOSTAR 100 UNITS/ML 3 ML PEN SC SCH (09:38)
[2019-05-28] MEDS: TIOTROPIUM BROMIDE 5 PUFF/90 MCG INH INH SCH (09:39)
--- NOTE | 2019-05-28 13:04 | Hospitalist Progress Note ---
Date of Service May 28, 2019 Assessment & Plan (1) Chest pain: (1) Chest pain: ACS ruled out [place] [place] [employer] consulted ISMO has been changed to IMDUR 30 mg once a day and beta-nasim has been increased No further cardiology work-up (+) recurrence on 05/23/19 at around 6pm EKG: no signs of acute infarct troponins x3 ordered-remained negative minimal relief with nitro Chest pain seems to be noncardiac Has had chest pain last evening with normal EKG and negative troponin Recurrent PE? CTA could not be done due to increasing creatinine INR 1.5 and started on intravenous heparin coumadin 10mg po ordered and will continue current INR is therapeutic Ultrasound of the legs-negative for any DVT CTA has been canceled Denies any increasing shortness of breath or chest pain INR is 3. 8 today We will hold Coumadin COPD Exacerbation d/c Prednisone and resume Solumedrol 40mg q8h (monitor BSG, Pharmacy consulted for Glycemic control) Nebs q4h Clinically improved Sleep more than 5 days of steroid and will not give any more (2) Palpitations: no tachycardia or tachyarrhythmias noted on monitor may benefit from outpatient cardiac monitoring Did not have any episode of tachycardia while his heart was monitored in the hospital (3) Chronic diastolic CHF (congestive heart failure) Possible Acute on Chronic Diastolic CHF weight trending up crea also increased to 1.7 [employer] consulted - Lasix IV started -decreased to 20mg q12h today -crea improved to 1.2 - negative fluid balance -weight down from 202 to 199kg - discussed with Nephro SVC - will resume usual Torsemide 20mg BID for now -Creatinine has been normalized -We will start his usual doses of diuretics-on hold now due to increasing creatinine MAHAMED [employer] We[employer] Operator consulted Creatinine has been improving Creatinine is normal Creatinine has been up today We will hold torsemide and spironolactone (4) Indwelling Lloyd catheter present: History of recurrent urinary tract infection Has chronic Lloyd catheter in situ -- Urine culture: E Coli changed Zosyn to Ceftriaxone consulted Urologist -- recommend to maintain Lloyd Cath for now (5) COPD (chronic obstructive pulmonary disease): with mild exacerbation, from CHF? management per #1 (6) Depression with anxiety: stable (7) Chronic pain disorder: pain management consulted discussed with patient, pain better controlled, will wean off/ discontinue IV Dilaudid-- Dilaudid IV x1 tomorrow, then STOP Increasing pain at the back and bilateral inflamed Has been difficult to move around Will give additional dose of 1 medial Dilaudid in the afternoon Requiring 2 doses of Dilaudid in the morning and in the afternoon for increasing pain with movement Complaints to have increasing pain at the back with radiation to the legs No more additional narcotics as per recommendation from the pain therapist in the hospital Will make an appointment with his outpatient pain therapist on the day of discharge DVT prophylaxis On intravenous heparin and oral Coumadin Monitor INR-INR is subtherapeutic at 1.3 We will supervise the dose of Coumadin 10 mg daily Continue heparin and oral Coumadin Remains subtherapeutic Continue oral Coumadin 10 mg daily with intravenous heparin for now INR is 2.5 today We will continue Coumadin 7.5mg daily CODE STATUS Full Disposition pending Likely discharge in a day or 2 (2) Leukocytosis: White cell count noted to be more than 23,000 Has been getting ceftriaxone for UTI We will get chest x-ray and rule out C. difficile diarrhea Chest x-ray shows possible retrocardiac shadow Will start intravenous doxycycline Leukocytosis he seems to be secondary to use of steroid Will DC IV Solu-Medrol Start oral prednisone from tomorrow 40 mg daily for a total of 5 days Generalized anxiety disorder Has been having more anxiety symptoms We will try to give intravenous Ativan 0.5 mg twice daily as needed Disposition Likely be discharged on Wednesday Subjective 05/24 The patient was seen and examined in medical floor He has been complaining of ongoing cough and wheezing Started to have diarrhea from today Feels worse as usual with increasing pain on movement 05/25 The patient was seen and examined in medical floor He has been complaining of more back pain especially with movement His shortness of breath is minimal Still complains of diarrhea without any abdominal pain He denies any chest pain and/or palpitation 05/26 The patient was seen and examined in medical floor He does not have any new complaints except ongoing pain No fever and chills but white count seems to be elevated to 24,000 His INR remains low at 1.2 in spite of 10 mg Coumadin daily 05/27 The patient was seen and examined in medical floor He has been very anxious and complains to have increasing pain at the back and lower extremities He remains shortness of breath with wheezing Denies any more diarrhea, nausea or vomiting 05/28 The patient was seen and examined in the medical floor He continues to complain to have increasing pain and weakness Shortness of breath has been better and wheezing has been better to No fever and/or chills and no diarrhea Review of Systems Review of Systems: All systems reviewed and are unremarkable except as noted below Constitutional: + body aches, + fatigue and + weakness Respiratory: + wheezing Gastrointestinal: + bloating; no abdominal pain, no nausea and no vomiting Musculoskeletal: + back pain (Increasing back pain) Chronic right ankle pain and complaints to have more left ankle pain Neurologic: + generalized weakness Physical Exam Physical Exam: Lying in bed without any acute symptoms Constitutional: well developed, well nourished, + ill appearing and + morbidly obese; no acute distress Eyes: PERRL, conjunctivae normal, anicteric sclerae ENMT: external ear and nose normal, oropharynx normal Neck: trachea midline, no thyromegaly Respiratory: no respiratory distress Auscultation: + diminished lung sounds, + crackles (Minimal crackles left base) and + wheezes (Almost gone) Cardiovascular: Rate/Rhythm: regular rate and regular rhythm Heart Sounds: no murmur Extremities: + edema (1+ bilateral which is much improved compared with prior admission) Gastrointestinal (Abdomen): Inspection/Auscultation: + abdomen distended and normal bowel sounds Percussion/Palpation: abdomen soft; abdomen nontender Neurologic: moves all extremities; no focal motor deficits Lymphatic: no cervical or axillary lymphadenopathy Results & Data Vital Signs (Past 12 Hours) Vital Signs Temp Pulse Resp BP Pulse Ox 05/28/19 07:19 36.5 C 66 18 133/76 96 Laboratory Results Short CBC 05/28/19 Range/Units 07:40 WBC 22.34 H (4.8-10.8) K/uL Hgb 12.3 L (14.0-18.0) g/dL Hct 39.8 L (42-52) % Plt Count 318 (130-400) K/uL BMP 05/28/19 07:40 Sodium 137 Potassium 4.0 Chloride 101 Carbon Dioxide 29 BUN 42 H Creatinine 1.57 H Glucose 95 Calcium 9.3 Medications Administered Current Inpatient Medications Aspirin (Ecotrin Ectab) 81 mg PO QAM EMPERATRIZ Stop: 06/10/19 08:59 Last Admin: 05/28/19 08:25 Dose: 81 mg Documented by: Cyclobenzaprine HCl (Flexeril) 10 mg PO BID [facility] Stop: 06/09/19 20:59 Last Admin: 05/28/19 08:25 Dose: 10 mg Documented by: Dextrose (Dextrose 50%) 25 - 50 ml IV UD PRN; Protocol PRN Reason: Hypoglycemia Protocol Stop: 06/09/19 20:59 Duloxetine [facility] (Cymbalta) [facility] [place] Stop: 06/10/19 08:59 Last Admin: 05/28/19 08:25 Dose: 60 mg Documented by: Finasteride (Proscar) 5 [facility] [place] Stop: 06/10/19 08:59 Last Admin: 05/28/19 08:24 Dose: 5 mg Documented by: Fluticasone Propionate (Flonase) 2 sprays NA QAM [facility] Stop: 06/10/19 08:59 Last Admin: 05/28/19 08:24 Dose: 2 sprays Documented by: Gabapentin (Neurontin) 200 mg PO HS [facility] Stop: 06/19/19 20:59 Last Admin: 05/27/19 20:53 Dose: 200 mg Documented by: Gabapentin (Neurontin) 200 mg PO BID@0900,1400 [facility] Stop: 06/19/19 08:59 Last Admin: 05/28/19 08:25 Dose: 200 mg Documented by: Glucagon (Glucagen) 1 mg SQ UD PRN; Protocol PRN Reason: Hypoglycemia Protocol Stop: 06/09/19 20:59 Glucose (Glucose 40%) 15 - 30 gm PO UD PRN; Protocol PRN Reason: Hypoglycemia Protocol Stop: 06/09/19 20:59 Glucose (Dex4 Glucose) 4 - 8 tabs PO UD PRN; Protocol PRN Reason: Hypoglycemia Protocol Stop: 06/09/19 20:59 Hydromorphone HCl (Dilaudid) 1 mg IV BID@0900,1300 [facility] Stop: 06/08/19 08:59 Last Admin: 05/28/19 08:23 Dose: 1 mg Documented by: Hydroxyzine HCl (Vistaril) 25 mg PO QID PRN PRN Reason: Anxiety Stop: 06/09/19 19:07 Promethazine HCl 12.5 mg/ (Sodium Chloride) 50.5 mls @ 202 mls/hr IV Q6H PRN PRN Reason: Nausea And Vomiting Stop: 06/11/19 14:28 Last Infusion: 05/27/19 17:00 Dose: Infused Documented by: Ceftriaxone Sodium 2,000 mg/ (Dextrose) 70 mls @ 100 mls/hr IV Q24H [facility]; Protocol Stop: 05/31/19 13:59 Last Infusion: 05/27/19 15:01 Dose: Infused Documented by: Doxycycline Hyclate 100 mg/ (Dextrose) 110 mls @ 50 mls/hr IV Q12H [facility] Stop: 06/02/19 11:59 Last Admin: 05/28/19 11:55 Dose: 50 mls/hr Documented by: Insulin Aspart (Novolog Aspart) 0 units SC ACHS [facility] Stop: 06/24/19 16:29 Last Admin: 05/28/19 09:37 Dose: 5 units Documented by: Insulin Glargine (Lantus Solostar Pen) 20 units SC QAM [facility] Stop: 06/27/19 08:59 Last Admin: 05/28/19 09:38 Dose: 20 units Documented by: Ipratropium [place] (Atrovent 0.02% 0.5mg/2.5ml) 0.5 mg INH Q4R PRN PRN Reason: Shortness Of Breath Or Wheezing Stop: 06/18/19 10:59 Isosorbide Mononitrate (Imdur Extended Rel) 30 mg PO QAM [facility] Stop: 06/11/19 08:59 Last Admin: 05/28/19 08:25 Dose: 30 mg Documented by: Lactobacillus Acidophilus (Floranex) 4 tab PO QIDM [facility] Stop: 06/19/19 16:59 Last Admin: 05/28/19 11:56 Dose: 4 tab Documented by: Levalbuterol HCl (Xopenex 1.25mg/0.5ml Neb) 1.25 mg INH Q4R PRN PRN Reason: Shortness Of Breath Or Wheezin Stop: 06/18/19 10:59 Lidocaine (Lidoderm 5%) 1 patch TD QAM [facility] Stop: 06/13/19 15:44 Last Admin: 05/28/19 08:26 Dose: Not Given Documented by: Magnesium Oxide (Mag-Ox) 400 mg PO BID [facility] Stop: 06/09/19 20:59 Last Admin: 05/28/19 08:25 Dose: 400 mg Documented by: Metoprolol Succinate (Toprol Xl) 50 mg PO BID [facility] Stop: 06/18/19 19:44 Last Admin: 05/28/19 08:24 Dose: 50 mg Documented by: Miconazole Nitrate (Desenex) 1 appln EXT PRN PRN PRN Reason: TO RED SKIN FOLDS Stop: 06/21/19 11:34 Miscellaneous (Remove Nicoderm Patch) 1 ea N/A HS [facility] Stop: 06/10/19 20:59 Last Admin: 05/27/19 20:54 Dose: Not Given Documented by: Miscellaneous (Carbohydrates For Hypoglycemia) 15 - 30 gm PO PRN PRN PRN Reason: Hypoglycemia Treatment Stop: 06/09/19 20:59 Miscellaneous (Remove Lidoderm Patch) 1 ea N/A DAILY@2100 [facility] Stop: 06/13/19 20:59 Last Admin: 05/27/19 20:54 Dose: Not Given Documented by: Miscellaneous Information (Consult Glycemic Management Pharmacy) 1 ea N/A UD PRN PRN Reason: Consult Stop: 06/18/19 17:07 Morphine Sulfate (Ms Contin) 15 mg PO Q12 [facility] Stop: 06/06/19 20:59 Last Admin: 05/28/19 08:22 Dose: 15 mg Documented by: Nicotine (Nicoderm Cq) 21 mg TD QAM [facility] Stop: 06/10/19 08:59 Last Admin: 05/28/19 08:27 Dose: 21 mg Documented by: Nitroglycerin (Nitrostat) 0.4 mg SL UD PRN PRN Reason: CHEST PAIN Stop: 06/09/19 19:07 Last Admin: 05/25/19 15:55 Dose: 0.4 mg Documented by: Oxycodone HCl (Roxicodone Immediate Rel) 15 mg PO Q4H [facility] Stop: 06/06/19 19:59 Last Admin: 05/28/19 10:16 Dose: 15 mg Documented by: Pantoprazole Sodium (Protonix) 40 mg PO DAILY [facility]; Protocol Stop: 06/10/19 08:59 Last Admin: 05/28/19 08:24 Dose: 40 mg Documented by: Polyethylene Glycol (Miralax Powder Packet) 17 gm PO BID PRN PRN Reason: Constipation Stop: 06/09/19 19:07 Last Admin: 05/20/19 09:44 Dose: 17 gm Documented by: Senna/Docusate Sodium (Senokot S) 1 tab PO BID [facility] Stop: 06/17/19 00:44 Last Admin: 05/28/19 09:36 Dose: 1 tab Documented by: Sodium Biphosphate/Sodium Phosphate (Fleet Enema) 133 ml [place] UD PRN PRN Reason: Constipation Stop: 06/09/19 19:07 Tamsulosin HCl (Flomax) 0.4 mg PO DAILY EMPERATRIZ Stop: 06/10/19 08:59 Last Admin: 05/28/19 08:25 Dose: 0.4 mg Documented by: Tiotropium [place] (Spiriva) 1 puffs INH DAILY [facility] Stop: 06/10/19 08:59 Last Admin: 05/28/19 09:39 Dose: 1 puffs Documented by: Torsemide (Demadex) 20 mg PO BID@0900,1800 [facility] Stop: 06/26/19 08:59 Last Admin: 05/28/19 08:26 Dose: 20 mg Documented by: Tramadol HCl (Ultram) 50 mg PO Q4H PRN PRN Reason: Pain Stop: 06/09/19 19:07 Last Admin: 05/28/19 10:16 Dose: 50 mg Documented by: Warfarin Sodium (Coumadin) 5 mg PO DAILY@1600 [facility] Stop: 06/28/19 15:59 (1) Chest pain Chest pain type: precordial pain Qualified Code(s): R07.2 - Precordial pain (2) Leukocytosis Leukocytosis type: unspecified Qualified Code(s): D72.829 - Elevated white blood cell count, unspecified
[2019-05-28] MEDS: cefTRIAXone SODIUM 2,000 MG in DEXTROSE 5% 50 ML IV SCH (13:54)
[2019-05-28] MEDS: PROMETHAZINE HCL 12.5 MG in SODIUM CHLORIDE 0.9% 50 ML IV PRN (16:48)
[2019-05-28] MEDS: LORazepam 0.5 MG/1 ML VIAL IV PRN (18:24)
[2019-05-29] MEDS: DOXYCYCLINE HYCLATE 100 MG in DEXTROSE 5% 100 ML IV SCH (00:17)
[2019-05-29] MEDS: TRAMADOL HCL 50 MG TABLET PO PRN ×6 (02:09→21:44)
[2019-05-29] MEDS: OXYCODONE HCL IR 5 MG TAB (IMMEDIATE RELEASE) PO SCH ×6 (02:10→21:43)
[2019-05-29] MEDS: PROMETHAZINE HCL 12.5 MG in SODIUM CHLORIDE 0.9% 50 ML IV PRN ×2 (04:26→15:51)
[2019-05-29 07:59] LABS: Basophils # (auto) 0.03 K/uL (0-0.2); Basophils % (auto) 0.1 %; Eosinophils # (auto) 0.23 K/uL (0-0.5); Eosinophils % (auto) 1.1 %; Hematocrit (blood only) 40.5 % (42-52); Hemoglobin 12.9 g/dL (14.0-18.0); Immature Granulocytes # (auto) 0.76 K/uL (0.00-0.02); Immature Granulocytes % (auto) 3.7 %; Lymphocytes # (auto) 3.68 K/uL (1.2-3.4); Lymphocytes % (auto) 17.9 %; Mean Corpuscular Hemoglobin 23.9 pg (25-34); Mean Corpuscular Hgb Conc 31.9 g/dL (32-36); Mean Platelet Volume 10.4 fL (7.4-10.4); Monocytes # (auto) 1.62 K/uL (0.11-0.59); Monocytes % (auto) 7.9 %; Neutrophils # (auto) 14.21 K/uL (1.4-6.5); Neutrophils % (auto) 69.3 %; Nucleated RBC # (auto) 0.02 K/uL (0-0); Nucleated RBC % (auto) 0.1 %; Platelet Count 315 K/uL (130-400); RDW Coefficient of Variation 21.1 % (11.5-14.5); RDW Standard Deviation 56.4 fL (36.4-46.3); White Blood Count 20.53 K/uL (4.8-10.8)
[2019-05-29 08:07] LABS: INR 2.6 (0.9-1.1); Prothrombin Time 25.2 Seconds (9.0-12.0)
[2019-05-29 08:45] LABS: Anisocytosis Present
[2019-05-29] MEDS: HYDROmorphone INJ 1 MG/ML SYRINGE IV SCH ×2 (08:50→13:06)
[2019-05-29] MEDS: MoRPHine SULFATE CR 15 MG TABCR PO SCH ×2 (08:50→21:05)
[2019-05-29] MEDS: FINASTERIDE 5 MG TAB PO SCH (08:51)
[2019-05-29] MEDS: TAMSULOSIN HCL 0.4 MG CAP PO SCH (08:51)
[2019-05-29] MEDS: GABAPENTIN 100 MG CAP PO SCH ×3 (08:51→21:05)
[2019-05-29] MEDS: MAGNESIUM OXIDE 400 MG TAB PO SCH ×2 (08:51→21:05)
[2019-05-29] MEDS: ASPIRIN 81 MG ECTAB PO SCH (08:51)
[2019-05-29] MEDS: NICOTINE 21 MG/24 HR TDSY TD SCH (08:51)
[2019-05-29] MEDS: LACTOBACILLUS ACIDOPHILUS (FLORANEX) TAB PO SCH ×4 (08:51→21:04)
[2019-05-29] MEDS: FLUTICASONE PROPIONATE NA SPR 16 GM BTL SCH (08:52)
[2019-05-29] MEDS: CYCLOBENZAPRINE HCL 10 MG TAB PO SCH ×2 (08:53→21:05)
[2019-05-29] MEDS: TIOTROPIUM BROMIDE 5 PUFF/90 MCG INH INH SCH (08:53)
[2019-05-29] MEDS: PANTOprazole 40 MG TAB PO SCH (08:53)
[2019-05-29] MEDS: METOPROLOL SUCC 50MG EXT REL TAB PO SCH ×2 (08:53→21:05)
[2019-05-29] MEDS: ISOSORBIDE MONO EXTENDED REL 30 MG TABCR PO SCH (08:53)
[2019-05-29] MEDS: LIDOCAINE 5% 1 PATCH TD SCH (08:54)
[2019-05-29] MEDS: DULOXETINE HCL 60 MG CAP PO SCH (08:54)
[2019-05-29] MEDS: INSULIN GLARGINE SOLOSTAR 100 UNITS/ML 3 ML PEN SC SCH (08:55)
[2019-05-29] MEDS: INSULIN ASPART 100 UNITS/ML VIAL SC SCH ×4 (08:57→21:09)
[2019-05-29 08:59] LABS: BUN Creatinine Ratio 28.6 (10-20); Creatinine Clr Calc Pharmacy 101.3 ml/min; Est GFR (African American) 62.4; Est GFR (Non-African American) 53.8
[2019-05-29] MEDS: DOCUSATE SODIUM/SENNA 50/8.6MG TAB PO SCH ×2 (09:04→21:06)
[2019-05-29] MEDS: LORazepam 0.5 MG/1 ML VIAL IV PRN ×2 (09:49→17:37)
[2019-05-29] MEDS: cefTRIAXone SODIUM 2,000 MG in DEXTROSE 5% 50 ML IV SCH (13:07)
[2019-05-29] MEDS ORDERED: SODIUM CHLORIDE 0.65% NA SOLN 45 ML (OCEAN) ONE (15:17)
[2019-05-29] MEDS ORDERED: WARFARIN SOD 5 MG TAB PO SCH (16:00)
--- NOTE | 2019-05-29 17:27 | Nephrology Progress Note ---
Date of Service May 29, 2019 Assessment & Plan (1) MAHAMED (acute kidney injury): baseline creatinine is 1.2-1.5. w/ aggressive diuresis, his renal function went overnight from 1.0>1.6 earlier this week, slight improvement at 1.5 today. he is markedly negative on I/O and is losing weight on standing scale >> do not believe he has need for large amounts of diuretics which have to date only worsened renal function; minimal edema which is in any event difficult to evaluate meaningfully in person w/ his body habitus; standing wts have have been trending down. has not had iv contrast ; is also getting ceftriaxone for catheter associated UTI which could in theory cause ATN; diuretics likelier cause of worsened function earlier this week -every time we have reintroduced diuretics, renal function worsened; believe his breathing issues have been more of copd/obesity hypoventilation than diastolic HF issue -cont to hold torsemide, spironolactone; consider restart tomorrow if labs imp roving > would however start only torsemide 20 mg daily and not bid; would not resume spironolactone just yet if at all -daily bmp -continue FR and sodium limit (2) Chronic diastolic CHF (congestive heart failure): pt takes torsemide 20 mg bid and K 10 mEq po bid and spironolactone 50 mg bid from prior to admission; not floridly overloaded on exam generally. he is 14 liters negative since 05/20 by I/O to 05/25; wt is labile and going down w/o diuretics -CXR 05/25 clear >> little evidence of fluid overload; nursing reports he declines breathing txs/inhalers at times >> recommend focus on adherence w/ that if SOB -recommend < 2 gm daily Na diet and FR 1.5 L daily -needs daily STANDING wts pls -daily bmp while in house (3) Urinary retention: per urology Subjective states he feels "crappy" d/t sob, d/t chest pain. denies constipation; does not mention edema. sats ok on RA as they have been; heparin gtt off now Review of Systems Review of Systems: All systems reviewed & are unremarkable except as noted in HPI & below Physical Exam Constitutional: well developed and + morbidly obese; no acute distress on RA A& 0 x 3 Eyes: EOM intact bilaterally ENMT: Ears: no external ear abnormality Nose: no external nose abnormality Mouth: + dry oral mucous membranes Neck: no nuchal rigidity Respiratory: normal respiratory effort Auscultation: + diminished lung sounds and + wheezes (minimal today) Cardiovascular: Rate/Rhythm: regular rate and regular rhythm Extremities: + edema (minimal to no BLE edema) Gastrointestinal (Abdomen): Inspection/Auscultation: normal bowel sounds Percussion/Palpation: abdomen soft; abdomen nontender Musculoskeletal: Extremities: strength 5/5 throughout Skin: no rashes, warm and dry Neurologic: bolivar, fluent speech, no tremor Psychiatric: A+Ox3, euthymic affect Orientation: alert and oriented x 3 Speech: normal rate/rhythm/volume of speech Affect: + anxious affect Genitourinary: fontaine w/ ample urine Results & Data Vital Signs (Past 12 Hours) Vital Signs Temp Pulse Resp BP Pulse Ox 05/29/19 15:29 36.9 C 87 20 149/82 H 96 05/29/19 07:14 36.8 C 72 18 163/79 H 96 Laboratory Results 05/29/19 07:37 05/29/19 07:37
--- NOTE | 2019-05-29 18:00 | Hospitalist Progress Note ---
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 CTA could not be done due to increasing creatinine INR 1.5 and started on intravenous heparin coumadin 10mg po ordered and will continue current INR is therapeutic Ultrasound of the legs-negative for any DVT CTA has been canceled Denies any increasing shortness of breath or chest pain INR is 3. 8 today We will hold Coumadin INR is therapeutic today, will continue Coumadin COPD Exacerbation d/c Prednisone and resume Solumedrol 40mg q8h (monitor BSG, Pharmacy consulted for Glycemic control) Nebs q4h Clinically improved Sleep more than 5 days of steroid and will not give any more (2) Palpitations: no tachycardia or tachyarrhythmias noted on monitor may benefit from outpatient cardiac monitoring Did not have any episode of tachycardia while his heart was monitored in the hospital (3) Chronic diastolic CHF (congestive heart failure) Possible Acute on Chronic Diastolic CHF weight trending up crea also increased to 1.7 Journeyman Painter consulted - Lasix IV started -decreased to 20mg q12h today -crea improved to 1.2 - negative fluid balance -weight down from 202 to 199kg - discussed with Nephro SVC - will resume usual Torsemide 20mg BID for now -Creatinine has been normalized -We will start his usual doses of diuretics-on hold now due to increasing creatinine MAHAMED Journeyman Painter consulted Creatinine has been improving Creatinine is normal Creatinine has been up today We will hold torsemide and spironolactone (4) Indwelling Lloyd catheter present: History of recurrent urinary tract infection Has chronic Lloyd catheter in situ -- Urine culture: E Coli changed Zosyn to Ceftriaxone consulted Urologist -- recommend to maintain Lloyd Cath for now (5) COPD (chronic obstructive pulmonary disease): with mild exacerbation, from CHF? management per #1 (6) Depression with anxiety: stable (7) Chronic pain disorder: pain management consulted discussed with patient, pain better controlled, will wean off/ discontinue IV Dilaudid-- Dilaudid IV x1 tomorrow, then STOP Increasing pain at the back and bilateral inflamed Has been difficult to move around Will give additional dose of 1 medial Dilaudid in the afternoon Requiring 2 doses of Dilaudid in the morning and in the afternoon for increasing pain with movement Complaints to have increasing pain at the back with radiation to the legs No more additional narcotics as per recommendation from the pain therapist in the hospital Will make an appointment with his outpatient pain therapist on the day of discharge DVT prophylaxis On intravenous heparin and oral Coumadin Monitor INR-INR is subtherapeutic at 1.3 We will supervise the dose of Coumadin 10 mg daily Continue heparin and oral Coumadin Remains subtherapeutic Continue oral Coumadin 10 mg daily with intravenous heparin for now INR is 2.5 today We will continue Coumadin 7.5mg daily CODE STATUS Full Disposition pending Likely discharge in a day or 2 (2) Leukocytosis: White cell count noted to be more than 23,000 Has been getting ceftriaxone for UTI We will get chest x-ray and rule out C. difficile diarrhea Chest x-ray shows possible retrocardiac shadow Will start intravenous doxycycline Leukocytosis he seems to be secondary to use of steroid Will DC IV Solu-Medrol We will start 40 mg oral prednisone from today Generalized anxiety disorder Has been having more anxiety symptoms We will try to give intravenous Ativan 0.5 mg twice daily as needed Disposition Medically stable to be discharged The patient does not have any pain medications at home He has been on high-dose of narcotics We cannot give any prescription of narcotics and that has to come from the pain therapist He has an appointment with the pain therapist on Will be discharged from the hospital on Subjective 05/24 The patient was seen and examined in medical floor He has been complaining of ongoing cough and wheezing Started to have diarrhea from today Feels worse as usual with increasing pain on movement 05/25 The patient was seen and examined in medical floor He has been complaining of more back pain especially with movement His shortness of breath is minimal Still complains of diarrhea without any abdominal pain He denies any chest pain and/or palpitation 05/26 The patient was seen and examined in medical floor He does not have any new complaints except ongoing pain No fever and chills but white count seems to be elevated to 24,000 His INR remains low at 1.2 in spite of 10 mg Coumadin daily 05/27 The patient was seen and examined in medical floor He has been very anxious and complains to have increasing pain at the back and lower extremities He remains shortness of breath with wheezing Denies any more diarrhea, nausea or vomiting 05/28 The patient was seen and examined in the medical floor He continues to complain to have increasing pain and weakness Shortness of breath has been better and wheezing has been better to No fever and/or chills and no diarrhea 05/29 Patient was seen and examined in medical floor He has been stable and complains to have multiple issues which has been ongoing for the last few days but nothing significant He denies any fever and/or chills any chest pain or palpitation, any abdominal pain nausea no vomiting, Review of Systems Review of Systems: All systems reviewed and are unremarkable except as noted below Constitutional: + body aches, + fatigue and + weakness Respiratory: + wheezing Gastrointestinal: + bloating; no abdominal pain, no nausea and no vomiting Musculoskeletal: + back pain (Increasing back pain) Chronic right ankle pain and complaints to have more left ankle pain Neurologic: + generalized weakness Physical Exam Physical Exam: Lying in bed comfortably Constitutional: well developed, well nourished and + morbidly obese; no acute distress and not ill appearing Eyes: PERRL, conjunctivae normal, anicteric sclerae ENMT: external ear and nose normal, oropharynx normal Neck: trachea midline, no thyromegaly Respiratory: no respiratory distress Auscultation: + diminished lung sounds, + crackles (Minimal crackles left base) and + wheezes (Almost gone) Cardiovascular: Rate/Rhythm: regular rate and regular rhythm Heart Sounds: no murmur Extremities: + edema (1+ bilateral which is much improved compared with prior admission) Gastrointestinal (Abdomen): Inspection/Auscultation: + abdomen distended and normal bowel sounds Percussion/Palpation: abdomen soft; abdomen nontender Neurologic: moves all extremities; no focal motor deficits Lymphatic: no cervical or axillary lymphadenopathy Results & Data Vital Signs (Past 12 Hours) Vital Signs Temp Pulse Resp BP Pulse Ox 05/29/19 15:29 36.9 C 87 20 149/82 H 96 05/29/19 07:14 36.8 C 72 18 163/79 H 96 Laboratory Results Short CBC 05/29/19 Range/Units 07:37 WBC 20.53 H (4.8-10.8) K/uL Hgb 12.9 L (14.0-18.0) g/dL Hct 40.5 L (42-52) % Plt Count 315 (130-400) K/uL BMP 05/29/19 07:37 Sodium 135 L Potassium 4.0 Chloride 98 Carbon Dioxide 31 BUN 43 H Creatinine 1.51 H Glucose 115 H Calcium 9.0 Medications Administered Current Inpatient Medications Aspirin (Ecotrin Ectab) 81 mg PO QAM [facility] Stop: 06/10/19 08:59 Last Admin: 05/29/19 08:51 Dose: 81 mg Documented by: Cyclobenzaprine HCl (Flexeril) 10 mg PO BID [facility] Stop: 06/09/19 20:59 Last Admin: 05/29/19 08:53 Dose: 10 mg Documented by: Dextrose (Dextrose 50%) 25 - 50 ml IV UD PRN; Protocol PRN Reason: Hypoglycemia Protocol Stop: 06/09/19 20:59 Doxycycline Hyclate (Vibramycin) 100 mg PO BID@0700,1900 [facility] Stop: 06/02/19 23:59 [facility]) [facility] Stop: 06/10/19 08:59 Last Admin: 05/29/19 08:54 Dose: 60 mg Documented by: Finasteride (Proscar) 5 mg PO QAM [facility] Stop: 06/10/19 08:59 Last Admin: 05/29/19 08:51 Dose: 5 mg Documented by: Fluticasone Propionate (Flonase) 2 sprays NA QAM [facility] Stop: 06/10/19 08:59 Last Admin: 05/29/19 08:52 Dose: 2 sprays Documented by: Gabapentin (Neurontin) 200 mg PO [facility] Stop: 06/19/19 20:59 Last Admin: 05/28/19 21:09 Dose: 200 mg Documented by: Gabapentin (Neurontin) 200 mg PO BID@0900,1400 [facility] Stop: 06/19/19 08:59 Last Admin: 05/29/19 13:07 Dose: 200 mg Documented by: Glucagon (Glucagen) 1 mg SQ UD PRN; Protocol PRN Reason: Hypoglycemia Protocol Stop: 06/09/19 20:59 Glucose (Glucose 40%) 15 - 30 gm PO UD PRN; Protocol PRN Reason: Hypoglycemia Protocol Stop: 06/09/19 20:59 Glucose (Dex4 Glucose) 4 - 8 tabs PO UD PRN; Protocol PRN Reason: Hypoglycemia Protocol Stop: 06/09/19 20:59 Hydromorphone HCl (Dilaudid) 1 mg IV BID@0900,1300 [facility] Stop: 06/08/19 08:59 Last Admin: 05/29/19 13:06 Dose: 1 mg Documented by: Hydroxyzine HCl (Vistaril) 25 mg PO QID PRN PRN Reason: Anxiety Stop: 06/09/19 19:07 Promethazine HCl 12.5 mg/ (Sodium Chloride) 50.5 mls @ 202 mls/hr IV Q6H PRN PRN Reason: Nausea And Vomiting Stop: 06/11/19 14:28 Last Infusion: 05/29/19 16:16 Dose: Infused Documented by: Ceftriaxone Sodium 2,000 mg/ (Dextrose) 70 mls @ 100 mls/hr IV Q24H [facility]; Protocol Stop: 05/31/19 13:59 Last Infusion: 05/29/19 13:50 Dose: Infused Documented by: Lorazepam (Ativan) 0.5 mg in 1 mls @ 0.5 mls/min IV BID PRN PRN Reason: Anxiety/Agitation Stop: 06/27/19 17:52 Last Admin: 05/29/19 17:37 Dose: 0.5 mls/min Documented by: Insulin Aspart (Novolog Aspart) 0 units SC ACHS [facility] Stop: 06/24/19 16:29 Last Admin: 05/29/19 17:30 Dose: 12 units Documented by: Insulin Glargine (Lantus Solostar Pen) 20 units SC QAM [facility] Stop: 06/27/19 08:59 Last Admin: 05/29/19 08:55 Dose: 20 units Documented by: Ipratropium [place] (Atrovent 0.02% 0.5mg/2.5ml) 0.5 mg INH Q4R PRN PRN Reason: Shortness Of Breath Or Wheezing Stop: 06/18/19 10:59 Isosorbide Mononitrate (Imdur Extended Rel) 30 mg PO QAM [facility] Stop: 06/11/19 08:59 Last Admin: 05/29/19 08:53 Dose: 30 mg Documented by: Lactobacillus Acidophilus (Floranex) 4 tab PO QIDM [facility] Stop: 06/19/19 16:59 Last Admin: 05/29/19 17:30 Dose: 4 tab Documented by: Levalbuterol HCl (Xopenex 1.25mg/0.5ml Neb) 1.25 mg INH Q4R PRN PRN Reason: Shortness Of Breath Or Wheezin Stop: 06/18/19 10:59 Lidocaine (Lidoderm 5%) 1 patch TD QAM [facility] Stop: 06/13/19 15:44 Last Admin: 05/29/19 08:54 Dose: Not Given Documented by: Magnesium Oxide (Mag-Ox) 400 mg PO BID [facility] Stop: 06/09/19 20:59 Last Admin: 05/29/19 08:51 Dose: 400 mg Documented by: Metoprolol Succinate (Toprol Xl) 50 mg PO BID [facility] Stop: 06/18/19 19:44 Last Admin: 05/29/19 08:53 Dose: 50 mg Documented by: Miconazole Nitrate (Desenex) 1 appln EXT PRN PRN PRN Reason: TO RED SKIN FOLDS Stop: 06/21/19 11:34 Miscellaneous (Remove Nicoderm Patch) 1 ea N/A HS [facility] Stop: 06/10/19 20:59 Last Admin: 05/28/19 21:12 Dose: 1 ea Documented by: Miscellaneous (Carbohydrates For Hypoglycemia) 15 - 30 gm PO PRN PRN PRN Reason: Hypoglycemia Treatment Stop: 06/09/19 20:59 Miscellaneous (Remove Lidoderm Patch) 1 ea N/A DAILY@2100 [facility] Stop: 06/13/19 20:59 Last Admin: 05/28/19 21:16 Dose: Not Given Documented by: Miscellaneous Information (Consult Glycemic Management Pharmacy) 1 ea N/A UD PRN PRN Reason: Consult Stop: 06/18/19 17:07 Morphine Sulfate (Ms Contin) 15 mg PO Q12 [facility] Stop: 06/06/19 20:59 Last Admin: 05/29/19 08:50 Dose: 15 mg Documented by: Nicotine (Nicoderm Cq) 21 mg TD QAM [facility] Stop: 06/10/19 08:59 Last Admin: 05/29/19 08:51 Dose: 21 mg Documented by: Nitroglycerin (Nitrostat) 0.4 mg SL UD PRN PRN Reason: CHEST PAIN Stop: 06/09/19 19:07 Last Admin: 05/25/19 15:55 Dose: 0.4 mg Documented by: Oxycodone HCl (Roxicodone Immediate Rel) 15 mg PO Q4H [facility] Stop: 06/06/19 19:59 Last Admin: 05/29/19 17:36 Dose: 15 mg Documented by: Pantoprazole Sodium (Protonix) 40 mg PO DAILY [facility]; Protocol Stop: 06/10/19 08:59 Last Admin: 05/29/19 08:53 Dose: 40 mg Documented by: Polyethylene Glycol (Miralax Powder Packet) 17 gm PO BID PRN PRN Reason: Constipation Stop: 06/09/19 19:07 Last Admin: 05/20/19 09:44 Dose: 17 gm Documented by: Senna/Docusate Sodium (Senokot S) 1 tab PO BID [facility] Stop: 06/17/19 00:44 Last Admin: 05/29/19 09:04 Dose: 1 tab Documented by: Sodium Biphosphate/Sodium Phosphate (Fleet Enema) 133 ml [place] UD PRN PRN Reason: Constipation Stop: 06/09/19 19:07 Tamsulosin HCl (Flomax) 0.4 mg PO DAILY [facility] Stop: 06/10/19 08:59 Last Admin: 05/29/19 08:51 Dose: 0.4 mg Documented by: Tiotropium [place] (Spiriva) 1 puffs INH DAILY [facility] Stop: 06/10/19 08:59 Last Admin: 05/29/19 08:53 Dose: 1 puffs Documented by: Torsemide (Demadex) 20 mg PO BID@0900,1800 [facility] Stop: 06/26/19 08:59 Last Admin: 05/28/19 08:26 Dose: 20 mg Documented by: Tramadol HCl (Ultram) 50 mg PO Q4H PRN PRN Reason: Pain Stop: 06/09/19 19:07 Last Admin: 05/29/19 17:36 Dose: 50 mg Documented by: Warfarin Sodium (Coumadin) 5 mg PO DAILY@1600 [facility] Stop: 06/28/19 15:59 Last Admin: 05/29/19 15:52 Dose: 5 mg Documented by: (1) Chest pain Chest pain type: precordial pain Qualified Code(s): R07.2 - Precordial pain (2) Leukocytosis Leukocytosis type: unspecified Qualified Code(s): D72.829 - Elevated white blood cell count, unspecified
[2019-05-29] MEDS: DOXYCYCLINE HYCLATE 100 MG CAP PO SCH (21:05)
[2019-05-29] MEDS: predniSONE 20 MG TAB PO SCH (21:44)
[2019-05-29] MEDS ORDERED: HYDROmorphone INJ 0.5 MG/0.5 ML SYR IV STA (23:00)
[2019-05-30] MEDS: OXYCODONE HCL IR 5 MG TAB (IMMEDIATE RELEASE) PO SCH ×6 (02:31→22:08)
[2019-05-30] MEDS: TRAMADOL HCL 50 MG TABLET PO PRN ×5 (02:51→21:44)
[2019-05-30 06:18] LABS: INR 1.8 (0.9-1.1); Prothrombin Time 17.8 Seconds (9.0-12.0)
[2019-05-30] MEDS ORDERED: HYDROmorphone INJ 0.5 MG/0.5 ML SYR IV STA (06:25)
[2019-05-30 06:46] LABS: BUN Creatinine Ratio 24.9 (10-20); Calcium 9.3 mg/dl (8.5-10.1); Creatinine Clr Calc Pharmacy 117.6 ml/min; Est GFR (African American) 71.4; Est GFR (Non-African American) 61.6; Potassium 4.8 mmol/L (3.5-5.1)
--- NOTE | 2019-05-30 07:06 | Ultrasound Report ---
US scrotum/testicle CLINICAL HISTORY: 48 years-old Male presenting with left testicular pain. TECHNIQUE: Real-time grayscale and color and spectral Doppler ultrasound imaging of the scrotum was p erformed. COMPARISON: 03/10/2019. FINDINGS: Right testis: Normal echogenicity and echotexture. Testis measures 4.2 x 1.7 x 2.9 cm. Normal color D oppler flow and arterial and venous waveforms in the testicular parenchyma. Epididymal head normal. N o hydrocele. No varicocele. Left testis: Normal echogenicity and echotexture. Testis measures 3.8 x 1.8 x 3.0 cm. Normal color Do ppler flow and arterial and venous waveforms in the testicular parenchyma. Epididymal head normal. No hydrocele. No varicocele. Symmetric perfusion of the testes. Other: None. IMPRESSION: No evidence of testicular torsion or epididymitis-orchitis. Electronically signed by: Joey Merida M.D. 05/30/2019 7:05 AM
[2019-05-30] MEDS: FINASTERIDE 5 MG TAB PO SCH (08:25)
[2019-05-30] MEDS: GABAPENTIN 100 MG CAP PO SCH ×3 (08:25→21:08)
[2019-05-30] MEDS: ASPIRIN 81 MG ECTAB PO SCH (08:26)
[2019-05-30] MEDS: METOPROLOL SUCC 50MG EXT REL TAB PO SCH ×2 (08:26→21:12)
[2019-05-30] MEDS: TIOTROPIUM BROMIDE 5 PUFF/90 MCG INH INH SCH (08:26)
[2019-05-30] MEDS: TAMSULOSIN HCL 0.4 MG CAP PO SCH (08:26)
[2019-05-30] MEDS: DULOXETINE HCL 60 MG CAP PO SCH (08:27)
[2019-05-30] MEDS: PANTOprazole 40 MG TAB PO SCH (08:27)
[2019-05-30] MEDS: MAGNESIUM OXIDE 400 MG TAB PO SCH ×2 (08:27→21:08)
[2019-05-30] MEDS: CYCLOBENZAPRINE HCL 10 MG TAB PO SCH ×2 (08:27→21:07)
[2019-05-30] MEDS: LACTOBACILLUS ACIDOPHILUS (FLORANEX) TAB PO SCH ×4 (08:27→21:07)
[2019-05-30] MEDS: ISOSORBIDE MONO EXTENDED REL 30 MG TABCR PO SCH (08:27)
[2019-05-30] MEDS: DOXYCYCLINE HYCLATE 100 MG CAP PO SCH ×2 (08:28→19:28)
[2019-05-30] MEDS: NICOTINE 21 MG/24 HR TDSY TD SCH (08:28)
[2019-05-30] MEDS: LIDOCAINE 5% 1 PATCH TD SCH (08:30)
[2019-05-30] MEDS: INSULIN GLARGINE SOLOSTAR 100 UNITS/ML 3 ML PEN SC SCH (08:31)
[2019-05-30] MEDS: INSULIN ASPART 100 UNITS/ML VIAL SC SCH ×4 (08:33→21:13)
[2019-05-30] MEDS: DOCUSATE SODIUM/SENNA 50/8.6MG TAB PO SCH ×2 (08:39→21:10)
[2019-05-30] MEDS: HYDROmorphone INJ 1 MG/ML SYRINGE IV SCH ×2 (08:45→12:53)
[2019-05-30] MEDS: MoRPHine SULFATE CR 15 MG TABCR PO SCH ×2 (08:46→21:07)
[2019-05-30] MEDS: predniSONE 20 MG TAB PO SCH (09:00)
[2019-05-30] MEDS: FLUTICASONE PROPIONATE NA SPR 16 GM BTL SCH (09:01)
--- NOTE | 2019-05-30 10:22 | Pharmacy Report ---
Glycemic Control Progress Note - Date of Service May 30, 2019 - Scope Glycemic Pharmacist consulted for glycemic control to write orders per [facility] inpatient glycemic control protocol. - Objective Accuchecks BSG(last 24 hours):: 05/29/19 05/29/19 05/29/19 12:02 16:37 20:24 Glucose POC Glucose 124 H 116 H 117 H 05/30/19 05/30/19 05:48 07:54 Glucose 165 H POC Glucose 158 H - Recent Pertinent Medications The patient is currently receiving: * Basal insulin: Lantus 20 units every 24 hours * Correctional Insulin: Novolog Correction per scale ACHS Goal Range: Low 110 mg/dL - High 140 mg/dL Correction Factor: 20 mg/dL/unit * Prandial insulin: Per carb ratio of 1 unit per 7 grams CHO consumed - Outpatient Anti-Diabetic Meds N/A - Assessment & Plan ASSESSMENT: * See progress note from 05/29/19 for more background info, in short: * Pt receiving SQ basal bolus insulin regimen for hyperglycemia secondary to baseline DM (outpatient regimen on hold); infection (currently on PO doxycycline and Rocephin). * Patient is currently receiving an average of 56 units of insulin per day * 20 units of basal insulin * 36 units of prandial/correctional insulin * BSGs ranging 116 - 124 mg/dl over the past 24hrs * Changes needed to insulin regimen: * AM Fasting BSG = 158 mg/dl. This is slightly above goal range for patient based on inpatient targets and co-morbidities. This is out of character for the last two fastings. The patient was eating overnight and requesting food from nursing. Will not increase unless there is a trend. * Post-prandial BSGs are in range therefore no changes needed to CF/CR. * Total daily dose = ~60 units. This dosing is yielding adequate glycemic control. PLAN FOR INPATIENT GLYCEMIC CONTROL: * Continuing Lantus 20 units SQ daily * Continuing correction factor of 20 mg/dl/unit * Continuing carb ratio of 1 unit per 7 grams CHO consumed * Continuing goal range to Low 110 mg/dL - High 140 mg/dL RECOMMENDATIONS FOR DISCHARGE: * see note from 05/28/19 * Please note that the plan above was derived based on current level of insulin resistance and hospital stress. These recommendations are appropriate for inpatient admission only. Plan of care upon discharge will need to be reassessed to avoid potential outpatient hypo/hyperglycemia. Thank you.
[2019-05-30] MEDS: PROMETHAZINE HCL 12.5 MG in SODIUM CHLORIDE 0.9% 50 ML IV PRN (12:18)
[2019-05-30] MEDS: cefTRIAXone SODIUM 2,000 MG in DEXTROSE 5% 50 ML IV SCH (14:02)
[2019-05-30] MEDS: LORazepam 0.5 MG/1 ML VIAL IV PRN (14:41)
[2019-05-30] MEDS ORDERED: WARFARIN SOD 7.5 MG TAB PO SCH (16:00)
[2019-05-30] MEDS ORDERED: HYDROmorphone INJ 1 MG/ML SYRINGE IV STA ×2 (17:32→22:04)
--- NOTE | 2019-05-30 18:48 | Hospitalist Progress Note ---
Date of Service May 30, 2019 Assessment & Plan (1) Chest pain: (1) Chest pain: ACS ruled out Founder consulted ISMO has been changed to IMDUR 30 mg once a day and beta-nasim has been increased No further cardiology work-up (+) recurrence on 05/23/19 at around 6pm EKG: no signs of acute infarct troponins x3 ordered-remained negative minimal relief with nitro Chest pain seems to be noncardiac Has had chest pain last evening with normal EKG and negative troponin Recurrent PE? CTA could not be done due to increasing creatinine INR 1.5 and started on intravenous heparin coumadin 10mg po ordered and will continue current INR is therapeutic Ultrasound of the legs-negative for any DVT CTA has been canceled Denies any increasing shortness of breath or chest pain INR is 3. 8 today We will hold Coumadin INR is therapeutic today, will continue Coumadin COPD Exacerbation d/c Prednisone and resume Solumedrol 40mg q8h (monitor BSG, Pharmacy consulted for Glycemic control) Nebs q4h Clinically improved Sleep more than 5 days of steroid and will not give any more (2) Palpitations: no tachycardia or tachyarrhythmias noted on monitor may benefit from outpatient cardiac monitoring Did not have any episode of tachycardia while his heart was monitored in the hospital (3) Chronic diastolic CHF (congestive heart failure) Possible Acute on Chronic Diastolic CHF weight trending up crea also increased to 1.7 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 - Lasix IV started -decreased to 20mg q12h today -crea improved to 1.2 - negative fluid balance -weight down from 202 to 199kg - discussed with Nephro SVC - will resume usual Torsemide 20mg BID for now -Creatinine has been normalized -We will start his usual doses of diuretics-on hold now due to increasing creatinine MAHAMED 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 management per #1 (6) Depression with anxiety: stable (7) Chronic pain disorder: pain management consulted discussed with patient, pain better controlled, will wean off/ discontinue IV Dilaudid-- Dilaudid IV x1 tomorrow, then STOP Increasing pain at the back and bilateral inflamed Has been difficult to move around Will give additional dose of 1 medial Dilaudid in the afternoon Requiring 2 doses of Dilaudid in the morning and in the afternoon for increasing pain with movement Complaints to have increasing pain at the back with radiation to the legs No more additional narcotics as per recommendation from the pain therapist in the hospital Will make an appointment with his outpatient pain therapist on the day of discharge Has appointment with his pain therapist on at 10 AM DVT prophylaxis On intravenous heparin and oral Coumadin Monitor INR-INR is subtherapeutic at 1.3 We will supervise the dose of Coumadin 7.5 mg Continue heparin and oral Coumadin Remains subtherapeutic Continue oral Coumadin 10 mg daily with intravenous heparin for now INR is 2.5 today We will continue Coumadin 7.5mg daily CODE STATUS Full Disposition pending Likely discharge in a day or 2 (2) Leukocytosis: White cell count noted to be more than 23,000 Has been getting ceftriaxone for UTI We will get chest x-ray and rule out C. difficile diarrhea Chest x-ray shows possible retrocardiac shadow Will start intravenous doxycycline Leukocytosis he seems to be secondary to use of steroid Will DC IV Solu-Medrol We will start 40 mg oral prednisone from today Generalized anxiety disorder Has been having more anxiety symptoms We will try to give intravenous Ativan 0.5 mg twice daily as needed Disposition Medically stable to be discharged The patient does not have any pain medications at home He has been on high-dose of narcotics We cannot give any prescription of narcotics and that has to come from the pain therapist He has an appointment with the pain therapist on Will be discharged from the hospital on Likely be discharged tomorrow Discussed with Dr. Carter and the patient about discharge tomorrow He decided to go home tomorrow around 2:00PM provided he is stable and labs are reasonable He will get 1 day home dose of narcotics to take He will keep appointment with his pain therapist on at 10:00 as a scheduled Discussed with pharmacist to supply about 1 day dose of narcotics on discharge Subjective 05/24 The patient was seen and examined in medical floor He has been complaining of ongoing cough and wheezing Started to have diarrhea from today Feels worse as usual with increasing pain on movement 05/25 The patient was seen and examined in medical floor He has been complaining of more back pain especially with movement His shortness of breath is minimal Still complains of diarrhea without any abdominal pain He denies any chest pain and/or palpitation 05/26 The patient was seen and examined in medical floor He does not have any new complaints except ongoing pain No fever and chills but white count seems to be elevated to 24,000 His INR remains low at 1.2 in spite of 10 mg Coumadin daily 05/27 The patient was seen and examined in medical floor He has been very anxious and complains to have increasing pain at the back and lower extremities He remains shortness of breath with wheezing Denies any more diarrhea, nausea or vomiting 05/28 The patient was seen and examined in the medical floor He continues to complain to have increasing pain and weakness Shortness of breath has been better and wheezing has been better to No fever and/or chills and no diarrhea 05/29 Patient was seen and examined in medical floor He has been stable and complains to have multiple issues which has been ongoing for the last few days but nothing significant He denies any fever and/or chills any chest pain or palpitation, any abdominal pain nausea no vomiting, 05/30 The patient was seen and examined in medical floor He has been complaining of more pain in the testicle since last night Has an ultrasound that came out to be negative still complains of too much pain in the testicles especially when he is sitting Denies any other symptoms Review of Systems Review of Systems: All systems reviewed and are unremarkable except as noted below Respiratory: no wheezing Cardiovascular: no chest pain Gastrointestinal: + bloating; no abdominal pain, no nausea and no vomiting Genitourinary: + genital pain and + testicle pain Musculoskeletal: + back pain (Increasing back pain) Chronic right ankle pain and complaints to have more left ankle pain Neurologic: + generalized weakness Physical Exam Physical Exam: Lying in bed with minimal distress secondary to increasing testicular pain Constitutional: well developed, well nourished and + morbidly obese; no acute distress and not ill appearing Eyes: PERRL, conjunctivae normal, anicteric sclerae ENMT: external ear and nose normal, oropharynx normal Neck: trachea midline, no thyromegaly Respiratory: no respiratory distress Auscultation: + diminished lung sounds, + crackles (Minimal crackles left base) and + wheezes (Almost gone) Cardiovascular: Rate/Rhythm: regular rate and regular rhythm Heart Sounds: no murmur Extremities: + edema (1+ bilateral which is much improved compared with prior admission) Gastrointestinal (Abdomen): Inspection/Auscultation: + abdomen distended and normal bowel sounds Percussion/Palpation: abdomen soft; abdomen nontender Musculoskeletal: Chronic back pain with radiation to legs Neurologic: moves all extremities; no focal motor deficits Genitourinary: + testicular tenderness Lymphatic: no cervical or axillary lymphadenopathy Results & Data Vital Signs (Past 12 Hours) Vital Signs Temp Pulse Resp BP Pulse Ox 05/30/19 14:59 37 C 98 H 20 124/65 99 05/30/19 07:17 36.8 C 75 22 127/78 96 Laboratory Results [facility] 05/30/19 05:48 Sodium 136 Potassium 4.8 D Chloride 104 Carbon Dioxide 25 BUN 34 H Creatinine 1.35 Glucose 165 H Calcium 9.3 Medications Administered Current Inpatient Medications Aspirin (Ecotrin Ectab) 81 mg PO [facility] Stop: 06/10/19 08:59 Last Admin: 05/30/19 08:26 Dose: 81 mg Documented by: Cyclobenzaprine HCl (Flexeril) 10 mg PO BID [facility] Stop: 06/09/19 20:59 Last Admin: 05/30/19 08:27 Dose: 10 mg Documented by: Dextrose (Dextrose 50%) 25 - 50 ml IV UD PRN; Protocol PRN Reason: Hypoglycemia Protocol Stop: 06/09/19 20:59 Doxycycline Hyclate (Vibramycin) 100 mg PO BID@0700,1900 [facility] Stop: 06/02/19 23:59 Last Admin: 05/30/19 08:28 Dose: 100 mg Documented by: Duloxetine HCl (Cymbalta) 60 mg PO [facility] Stop: 06/10/19 08:59 Last Admin: 05/30/19 08:27 Dose: 60 mg Documented by: [facility]aster[facility]) [facility] [facility]: 06/10/19 08:59 Last Admin: 05/30/19 08:25 Dose: 5 mg Documented by: Fluticasone Propionate (Flonase) 2 sprays [facility] [place] Stop: 06/10/19 08:59 Last Admin: 05/30/19 09:01 Dose: 2 sprays Documented by: Gabapentin (Neurontin) 200 mg PO HS [facility] Stop: 06/19/19 20:59 Last Admin: 05/29/19 21:05 Dose: 200 mg Documented by: Gabapentin (Neurontin) 200 mg PO BID@0900,1400 [facility] Stop: 06/19/19 08:59 Last Admin: 05/30/19 12:53 Dose: 200 mg Documented by: Glucagon (Glucagen) 1 mg SQ UD PRN; Protocol PRN Reason: Hypoglycemia Protocol Stop: 06/09/19 20:59 Glucose (Glucose 40%) 15 - 30 gm PO UD PRN; Protocol PRN Reason: Hypoglycemia Protocol Stop: 06/09/19 20:59 Glucose (Dex4 Glucose) 4 - 8 tabs PO UD PRN; Protocol PRN Reason: Hypoglycemia Protocol Stop: 06/09/19 20:59 Hydromorphone HCl (Dilaudid) 1 mg IV BID@0900,1300 [facility] Stop: 06/08/19 08:59 Last Admin: 05/30/19 12:53 Dose: 1 mg Documented by: Hydroxyzine HCl (Vistaril) 25 mg PO QID PRN PRN Reason: Anxiety Stop: 06/09/19 19:07 Promethazine HCl 12.5 mg/ (Sodium Chloride) 50.5 mls @ 202 mls/hr IV Q6H PRN PRN Reason: Nausea And Vomiting Stop: 06/11/19 14:28 Last Infusion: 05/30/19 12:33 Dose: Infused Documented by: Ceftriaxone Sodium 2,000 mg/ (Dextrose) 70 mls @ 100 mls/hr IV Q24H [facility]; Protocol Stop: 05/31/19 13:59 Last Infusion: 05/30/19 14:41 Dose: Infused Documented by: Lorazepam (Ativan) 0.5 mg in 1 mls @ 0.5 mls/min IV BID PRN PRN Reason: Anxiety/Agitation Stop: 06/27/19 17:52 Last Admin: 05/30/19 14:41 Dose: 0.5 mls/min Documented by: Insulin Aspart (Novolog Aspart) 0 units SC ACHS [facility] Stop: 06/24/19 16:29 Last Admin: 05/30/19 17:52 Dose: 10 units Documented by: Insulin Glargine (Lantus Solostar Pen) 20 units SC QAM [facility] Stop: 06/27/19 08:59 Last Admin: 05/30/19 08:31 Dose: 20 units Documented by: Ipratropium [place] (Atrovent 0.02% 0.5mg/2.5ml) 0.5 mg INH Q4R PRN PRN Reason: Shortness Of Breath Or Wheezing Stop: 06/18/19 10:59 Isosorbide Mononitrate (Imdur Extended Rel) [facility] [place] [facility]: 06/11/19 08:59 Last Admin: 05/30/19 08:27 Dose: 30 mg Documented by: Lactobacillus Acidophilus (Floranex) 4 tab PO QIDM [facility] Stop: 06/19/19 16:59 Last Admin: 05/30/19 17:50 Dose: 4 tab Documented by: Levalbuterol HCl (Xopenex 1.25mg/0.5ml Neb) 1.25 mg INH Q4R PRN PRN Reason: Shortness Of Breath Or Wheezin Stop: 06/18/19 10:59 Lidocaine (Lidoderm 5%) 1 patch [facility] [place] Stop: 06/13/19 15:44 Last Admin: 05/30/19 08:30 Dose: 1 patch Documented by: Magnesium Oxide (Mag-Ox) 400 mg PO BID [facility] Stop: 06/09/19 20:59 Last Admin: 05/30/19 08:27 Dose: 400 mg Documented by: Metoprolol Succinate (Toprol Xl) 50 mg PO BID [facility] Stop: 06/18/19 19:44 Last Admin: 05/30/19 08:26 Dose: 50 mg Documented by: Miconazole Nitrate (Desenex) 1 appln EXT PRN PRN PRN Reason: TO RED SKIN FOLDS Stop: 06/21/19 11:34 Miscellaneous (Remove Nicoderm Patch) 1 ea N/A HS [facility] Stop: 06/10/19 20:59 Last Admin: 05/29/19 21:06 Dose: Not Given Documented by: Miscellaneous (Carbohydrates For Hypoglycemia) 15 - 30 gm PO PRN PRN PRN Reason: Hypoglycemia Treatment Stop: 06/09/19 20:59 Miscellaneous (Remove Lidoderm Patch) 1 ea N/A DAILY@2100 [facility] Stop: 06/13/19 20:59 Last Admin: 05/29/19 21:06 Dose: Not Given Documented by: Miscellaneous Information (Consult Glycemic Management Pharmacy) 1 ea N/A UD PRN PRN Reason: Consult Stop: 06/18/19 17:07 Morphine Sulfate (Ms Contin) 15 mg PO Q12 [facility] Stop: 06/06/19 20:59 Last Admin: 05/30/19 08:46 Dose: 15 mg Documented by: Nicotine (Nicoderm Cq) 21 mg TD QAM [facility] Stop: 06/10/19 08:59 Last Admin: 05/30/19 08:28 Dose: 21 mg Documented by: Nitroglycerin (Nitrostat) 0.4 mg SL UD PRN PRN Reason: CHEST PAIN Stop: 06/09/19 19:07 Last Admin: 05/25/19 15:55 Dose: 0.4 mg Documented by: Oxycodone HCl (Roxicodone Immediate Rel) 15 mg PO Q4H [facility] Stop: 06/06/19 19:59 Last Admin: 05/30/19 18:08 Dose: 15 mg Documented by: Pantoprazole Sodium (Protonix) 40 mg PO DAILY [facility]; Protocol Stop: 06/10/19 08:59 Last Admin: 05/30/19 08:27 Dose: 40 mg Documented by: Polyethylene Glycol (Miralax Powder Packet) 17 gm PO BID PRN PRN Reason: Constipation Stop: 06/09/19 19:07 Last Admin: 05/20/19 09:44 Dose: 17 gm Documented by: Prednisone (Prednisone) 40 mg PO DAILY [facility] Stop: 06/28/19 17:59 Last Admin: 05/30/19 09:00 Dose: 40 mg Documented by: Senna/Docusate Sodium (Senokot S) 1 tab PO BID [facility] Stop: 06/17/19 00:44 Last Admin: 05/30/19 08:39 Dose: Not Given Documented by: Sodium Biphosphate/Sodium Phosphate (Fleet Enema) 133 ml [place] UD PRN PRN Reason: Constipation Stop: 06/09/19 19:07 Tamsulosin HCl (Flomax) 0.4 mg PO DAILY [facility] Stop: 06/10/19 08:59 Last Admin: 05/30/19 08:26 Dose: 0.4 mg Documented by: Tiotropium [place] (Spiriva) 1 puffs INH DAILY [facility] Stop: 06/10/19 08:59 Last Admin: 05/30/19 08:26 Dose: 1 puffs Documented by: Torsemide (Demadex) 20 mg PO BID@0900,1800 [facility] Stop: 06/26/19 08:59 Last Admin: 05/28/19 08:26 Dose: 20 mg Documented by: Tramadol HCl (Ultram) 50 mg PO Q4H PRN PRN Reason: Pain Stop: 06/09/19 19:07 Last Admin: 05/30/19 17:18 Dose: 50 mg Documented by: Warfarin Sodium (Coumadin) 7.5 mg PO DAILY@1600 [facility] Stop: 06/29/19 15:59 Last Admin: 05/30/19 16:32 Dose: 7.5 mg Documented by: (1) Chest pain Chest pain type: precordial pain Qualified Code(s): R07.2 - Precordial pain (2) Leukocytosis Leukocytosis type: unspecified Qualified Code(s): D72.829 - Elevated white blood cell count, unspecified
[2019-05-31] MEDS ORDERED: OXYCODONE HCL IR 5 MG TAB (IMMEDIATE RELEASE) PO SCH ×2
[2019-05-31] MEDS ORDERED: MoRPHine SULFATE CR 15 MG TABCR PO SCH
[2019-05-31] MEDS ORDERED: TRAMADOL HCL 50 MG TABLET PO SCH
[2019-05-31] MEDS: TRAMADOL HCL 50 MG TABLET PO PRN ×3 (01:01→10:53)
[2019-05-31] MEDS: OXYCODONE HCL IR 5 MG TAB (IMMEDIATE RELEASE) PO SCH ×4 (02:15→13:35)
[2019-05-31] MEDS: LORazepam 0.5 MG/1 ML VIAL IV PRN (02:24)
[2019-05-31] MEDS: DOXYCYCLINE HYCLATE 100 MG CAP PO SCH (06:02)
[2019-05-31 06:46] LABS: INR 1.5 (0.9-1.1); Prothrombin Time 15.2 Seconds (9.0-12.0)
[2019-05-31] MEDS: INSULIN ASPART 100 UNITS/ML VIAL SC SCH ×2 (08:22→12:18)
[2019-05-31] MEDS: INSULIN GLARGINE SOLOSTAR 100 UNITS/ML 3 ML PEN SC SCH (08:23)
[2019-05-31] MEDS: MoRPHine SULFATE CR 15 MG TABCR PO SCH (08:23)
[2019-05-31] MEDS: DOCUSATE SODIUM/SENNA 50/8.6MG TAB PO SCH (08:23)
[2019-05-31] MEDS: PANTOprazole 40 MG TAB PO SCH (08:24)
[2019-05-31] MEDS: HYDROmorphone INJ 1 MG/ML SYRINGE IV SCH ×2 (08:24→13:35)
[2019-05-31] MEDS: predniSONE 20 MG TAB PO SCH (08:24)
[2019-05-31] MEDS: LACTOBACILLUS ACIDOPHILUS (FLORANEX) TAB PO SCH ×2 (08:24→12:20)
[2019-05-31] MEDS: METOPROLOL SUCC 50MG EXT REL TAB PO SCH (08:24)
[2019-05-31] MEDS: MAGNESIUM OXIDE 400 MG TAB PO SCH (08:24)
[2019-05-31] MEDS: FLUTICASONE PROPIONATE NA SPR 16 GM BTL SCH (08:25)
[2019-05-31] MEDS: GABAPENTIN 100 MG CAP PO SCH ×2 (08:25→13:36)
[2019-05-31] MEDS: ASPIRIN 81 MG ECTAB PO SCH (08:25)
[2019-05-31] MEDS: FINASTERIDE 5 MG TAB PO SCH (08:25)
[2019-05-31] MEDS: TAMSULOSIN HCL 0.4 MG CAP PO SCH (08:26)
[2019-05-31] MEDS: CYCLOBENZAPRINE HCL 10 MG TAB PO SCH (08:26)
[2019-05-31] MEDS: DULOXETINE HCL 60 MG CAP PO SCH (08:26)
[2019-05-31] MEDS: ISOSORBIDE MONO EXTENDED REL 30 MG TABCR PO SCH (08:26)
[2019-05-31] MEDS: TIOTROPIUM BROMIDE 5 PUFF/90 MCG INH INH SCH (08:27)
[2019-05-31] MEDS: LIDOCAINE 5% 1 PATCH TD SCH (08:27)
[2019-05-31] MEDS: NICOTINE 21 MG/24 HR TDSY TD SCH (08:28)
--- NOTE | 2019-05-31 09:56 | Nephrology Progress Note ---
Date of Service May 31, 2019 Assessment & Plan (1) MAHAMED (acute kidney injury): HISTORY of repeated occurrences of MAHAMED this admission w/ last labs at his baseline creatinine 1.2-1.5. >>w/ overaggressive diuresis, his renal function went overnight from 1.0>1.6 in the past week, back to baseline w/ holding diuretics. >>he has been markedly negative on I/O (likely taking extra po in though) and is losing weight on standing scale >> do not believe he has need for large amounts of diuretics which have to date only worsened renal function>> he has been on RA (wheezing more copd related); not hypertensive, w/ minimal edema which is in any event difficult to evaluate meaningfully in person w/ his body habitus; standing wts have have been trending down. -has not had iv contrast ; is also getting ceftriaxone for catheter associated UTI which could in theory cause ATN; diuretics likelier cause of worsened function earlier this week >>>every time we have reintroduced diuretics, renal function worsened; believe his breathing issues have been more of copd/obesity hypoventilation than diastolic HF issue ->>>for d/c today and recommend torsemide 20 mg daily not bid as was prior to admission and hold spironolactone >>recommend d/c on 2L FR and <2 gm daily Na diet and daily standing weights >BMP at pcp f/u or w/in week of d/c -f/u in [facility] CKD clinic next available any provider Care coordinated w/ Dr Silvestre (2) Chronic diastolic CHF (congestive heart failure): pt takes torsemide 20 mg bid and K 10 mEq po bid and spironolactone 50 mg bid from prior to admission; not floridly overloaded on exam generally. he is 14 liters negative since 05/20 by I/O to 05/25; wt is labile and going down w/o diuretics -CXR 05/25 clear >> little evidence of fluid overload; nursing reports he declines breathing txs/inhalers at times >> recommend focus on adherence w/ that if SOB -see above re diuretic recs -f/u w/ cardiology as IP/OP (3) Urinary retention: per urology Physical Exam Constitutional: well developed and + morbidly obese; no acute distress Eyes: EOM intact bilaterally ENMT: Ears: no external ear abnormality Nose: no external nose abnormality Mouth: + dry oral mucous membranes Neck: no nuchal rigidity Respiratory: normal respiratory effort Auscultation: + diminished lung sounds and + wheezes (minimal today) Cardiovascular: Rate/Rhythm: regular rate and regular rhythm Extremities: + edema (minimal to no BLE edema) Gastrointestinal (Abdomen): Inspection/Auscultation: normal bowel sounds Percussion/Palpation: abdomen soft; abdomen nontender Musculoskeletal: Extremities: strength 5/5 throughout Skin: no rashes, warm and dry Psychiatric: A+Ox3, euthymic affect Orientation: alert and oriented x 3 Speech: normal rate/rhythm/volume of speech Affect: + anxious affect Results & Data Vital Signs (Past 12 Hours) Vital Signs Temp Pulse Resp BP Pulse Ox 05/31/19 07:23 36.6 C 75 20 135/81 100 05/31/19 00:02 37.0 C 72 20 144/77 H 95 Laboratory Results none new; recent labs reviewed
[2019-05-31] MEDS ORDERED: HYDROmorphone INJ 1 MG/ML SYRINGE IV STA (10:41)
--- NOTE | 2019-05-31 10:57 | Hospitalist Progress Note ---
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 CTA could not be done due to increasing creatinine INR 1.5 and started on intravenous heparin coumadin 10mg po ordered and will continue current INR is therapeutic Ultrasound of the legs-negative for any DVT CTA has been canceled Denies any increasing shortness of breath or chest pain INR is 3. 8 today We will hold Coumadin INR is therapeutic today, will continue Coumadin INR is 1.5 today Continue Coumadin and repeat INR day after tomorrow COPD Exacerbation d/c Prednisone and resume Solumedrol 40mg q8h (monitor BSG, Pharmacy consulted for Glycemic control) Nebs q4h Clinically improved Sleep more than 5 days of steroid and will not give any more (2) Palpitations: no tachycardia or tachyarrhythmias noted on monitor may benefit from outpatient cardiac monitoring Did not have any episode of tachycardia while his heart was monitored in the hospital (3) Chronic diastolic CHF (congestive heart failure) Possible Acute on Chronic Diastolic CHF weight trending up crea also increased to 1.7 Program Manager Transportation consulted - Lasix IV started -decreased to 20mg q12h today -crea improved to 1.2 - negative fluid balance -weight down from 202 to 199kg - discussed with Nephro SVC - will resume usual Torsemide 20mg BID for now -Creatinine has been normalized -We will start his usual doses of diuretics-on hold now due to increasing c reatinine MAHAMED Program Manager Transportation consulted Creatinine has been improving Creatinine is normal Creatinine has been up today We will hold torsemide and spironolactone (4) Indwelling Lloyd catheter present: History of recurrent urinary tract infection Has chronic Lloyd catheter in situ -- Urine culture: E Coli changed Zosyn to Ceftriaxone consulted Urologist -- recommend to maintain Lloyd Cath for now (5) COPD (chronic obstructive pulmonary disease): with mild exacerbation, from CHF? management per #1 (6) Depression with anxiety: stable (7) Chronic pain disorder: pain management consulted discussed with patient, pain better controlled, will wean off/ discontinue IV Dilaudid-- Dilaudid IV x1 tomorrow, then STOP Increasing pain at the back and bilateral inflamed Has been difficult to move around Will give additional dose of 1 medial Dilaudid in the afternoon Requiring 2 doses of Dilaudid in the morning and in the afternoon for increasing pain with movement Complaints to have increasing pain at the back with radiation to the legs No more additional narcotics as per recommendation from the pain therapist in the hospital Will make an appointment with his outpatient pain therapist on the day of discharge Has appointment with his pain therapist on at 10 AM DVT prophylaxis On intravenous heparin and oral Coumadin Monitor INR-INR is subtherapeutic at 1.3 We will supervise the dose of Coumadin 7.5 mg Continue heparin and oral Coumadin Remains subtherapeutic Continue oral Coumadin 10 mg daily with intravenous heparin for now INR is 2.5 today We will continue Coumadin 7.5mg daily CODE STATUS Full Disposition pending Likely discharge in a day or 2 (2) Leukocytosis: White cell count noted to be more than 23,000 Has been getting ceftriaxone for UTI We will get chest x-ray and rule out C. difficile diarrhea Chest x-ray shows possible retrocardiac shadow Will start intravenous doxycycline Leukocytosis he seems to be secondary to use of steroid Will DC IV Solu-Medrol We will start 40 mg oral prednisone from today We will continue tapering dose of steroid on discharge Generalized anxiety disorder Has been having more anxiety symptoms We will try to give intravenous Ativan 0.5 mg twice daily as needed Disposition Medically stable to be discharged The patient does not have any pain medications at home He has been on high-dose of narcotics We cannot give any prescription of narcotics and that has to come from the pain therapist He has an appointment with the pain therapist on Will be discharged from the hospital on Likely be discharged tomorrow Discussed with Dr. Carter and the patient about discharge tomorrow He decided to go home tomorrow around 2:00PM provided he is stable and labs are reasonable He will get 1 day home dose of narcotics to take He will keep appointment with his pain therapist on at 10:00 as a scheduled Discussed with pharmacist to supply about 1 day dose of narcotics on discharge He has been medically stable for the last few days without any acute symptoms acute abnormalities in the blood test or x-ray,EKG He will be discharged this afternoon He was strongly advised to keep appointment with his pain therapist tomorrow Subjective 05/24 The patient was seen and examined in medical floor He has been complaining of ongoing cough and wheezing Started to have diarrhea from today Feels worse as usual with increasing pain on movement 05/25 The patient was seen and examined in medical floor He has been complaining of more back pain especially with movement His shortness of breath is minimal Still complains of diarrhea without any abdominal pain He denies any chest pain and/or palpitation 05/26 The patient was seen and examined in medical floor He does not have any new complaints except ongoing pain No fever and chills but white count seems to be elevated to 24,000 His INR remains low at 1.2 in spite of 10 mg Coumadin daily 05/27 The patient was seen and examined in medical floor He has been very anxious and complains to have increasing pain at the back and lower extremities He remains shortness of breath with wheezing Denies any more diarrhea, nausea or vomiting 05/28 The patient was seen and examined in the medical floor He continues to complain to have increasing pain and weakness Shortness of breath has been better and wheezing has been better to No fever and/or chills and no diarrhea 05/29 Patient was seen and examined in medical floor He has been stable and complains to have multiple issues which has been ongoing for the last few days but nothing significant He denies any fever and/or chills any chest pain or palpitation, any abdominal pain nausea no vomiting, 05/30 The patient was seen and examined in medical floor He has been complaining of more pain in the testicle since last night Has an ultrasound that came out to be negative still complains of too much pain in the testicles especially when he is sitting Denies any other symptoms 05/31 The patient was seen and examined in medical floor He has been complaining of pain involving the testicular area since last night Apparent ultrasound was negative Denies any other symptoms No shortness of breath, no wheezing, palpitation or chest pain He will be going home this afternoon Review of Systems Review of Systems: All systems reviewed and are unremarkable except as noted below Constitutional: + weakness Respiratory: no cough and no wheezing Cardiovascular: no chest pain Gastrointestinal: + bloating; no abdominal pain, no nausea and no vomiting Genitourinary: + genital pain and + testicle pain Musculoskeletal: + back pain (Increasing back pain) Chronic right ankle pain and complaints to have more left ankle pain Neurologic: + generalized weakness Physical Exam Physical Exam: Lying in bed with discomfort in the testicles and bottom Constitutional: well developed, well nourished and + morbidly obese; no acute distress and not ill appearing Eyes: PERRL, conjunctivae normal, anicteric sclerae ENMT: external ear and nose normal, oropharynx normal Neck: trachea midline, no thyromegaly Respiratory: no respiratory distress Auscultation: + diminished lung sounds, + crackles (Minimal crackles left base) and + wheezes (Almost gone) Cardiovascular: Rate/Rhythm: regular rate and regular rhythm Heart Sounds: no murmur Extremities: + edema (Bilateral leg edema has improved a lot) Gastrointestinal (Abdomen): Inspection/Auscultation: + abdomen distended and normal bowel sounds Percussion/Palpation: abdomen soft; abdomen nontender Soreness around perineum Neurologic: moves all extremities; no focal motor deficits Genitourinary: + testes abnormality (Tenderness with movement, no swelling, no redness) and + testicular tenderness Lymphatic: no cervical or axillary lymphadenopathy Results & Data Vital Signs (Past 12 Hours) Vital Signs Temp Pulse Resp BP Pulse Ox 05/31/19 07:23 36.6 C 75 20 135/81 100 05/31/19 00:02 37.0 C 72 20 144/77 H 95 Medications Administered Current Inpatient Medications Aspirin (Ecotrin Ectab) 81 mg PO QAM [facility] Stop: 06/10/19 08:59 Last Admin: 05/31/19 08:25 Dose: 81 mg Documented by: Cyclobenzaprine HCl (Flexeril) 10 mg PO BID [facility] Stop: 06/09/19 20:59 Last Admin: 05/31/19 08:26 Dose: 10 mg Documented by: Dextrose (Dextrose 50%) 25 - 50 ml IV UD PRN; Protocol PRN Reason: Hypoglycemia Protocol Stop: 06/09/19 20:59 Doxycycline Hyclate (Vibramycin) 100 mg PO BID@0700,1900 [facility] Stop: 06/02/19 23:59 Last Admin: 05/31/19 06:02 Dose: 100 mg Documented by: Duloxetine HCl (Cymbalta) 60 mg PO QAM [facility] Stop: 06/10/19 08:59 Last Admin: 05/31/19 08:26 Dose: 60 mg Documented by: Finasteride (Proscar) 5 mg PO QAM [facility] Stop: 06/10/19 08:59 Last Admin: 05/31/19 08:25 Dose: 5 mg Documented by: Fluticasone Propionate (Flonase) 2 sprays NA QAM [facility] Stop: 06/10/19 08:59 Last Admin: 05/31/19 08:25 Dose: 2 sprays Documented by: Gabapentin (Neurontin) 200 mg PO HS [facility] Stop: 06/19/19 20:59 Last Admin: 05/30/19 21:08 Dose: 200 mg Documented by: Gabapentin (Neurontin) 200 mg PO BID@0900,1400 [facility] Stop: 06/19/19 08:59 Last Admin: 05/31/19 08:25 Dose: 200 mg Documented by: Glucagon (Glucagen) 1 mg SQ UD PRN; Protocol PRN Reason: Hypoglycemia Protocol Stop: 06/09/19 20:59 Glucose (Glucose 40%) 15 - 30 gm PO UD PRN; Protocol PRN Reason: Hypoglycemia Protocol Stop: 06/09/19 20:59 Glucose (Dex4 Glucose) 4 - 8 tabs PO UD PRN; Protocol PRN Reason: Hypoglycemia Protocol Stop: 06/09/19 20:59 Hydromorphone HCl (Dilaudid) 1 mg IV BID@0900,1300 [facility] Stop: 06/08/19 08:59 Last Admin: 05/31/19 08:24 Dose: 1 mg Documented by: Hydromorphone HCl (Dilaudid) 1 mg IV NOW STA Stop: 05/31/19 10:42 Hydroxyzine HCl (Vistaril) 25 mg PO QID PRN PRN Reason: Anxiety Stop: 06/09/19 19:07 Promethazine HCl 12.5 mg/ (Sodium Chloride) 50.5 mls @ 202 mls/hr IV Q6H PRN PRN Reason: Nausea And Vomiting Stop: 06/11/19 14:28 Last Infusion: 05/30/19 12:33 Dose: Infused Documented by: Ceftriaxone Sodium 2,000 mg/ (Dextrose) 70 mls @ 100 mls/hr IV Q24H [facility]; Protocol Stop: 05/31/19 13:59 Last Infusion: 05/30/19 14:41 Dose: Infused Documented by: Lorazepam (Ativan) 0.5 mg in 1 mls @ 0.5 mls/min IV BID PRN PRN Reason: Anxiety/Agitation Stop: 06/27/19 17:52 Last Admin: 05/31/19 02:24 Dose: 0.5 mls/min Documented by: Insulin Aspart (Novolog Aspart) 0 units SC ACHS [facility] Stop: 06/24/19 16:29 Last Admin: 05/31/19 08:22 Dose: 7 units Documented by: Insulin Glargine (Lantus Solostar Pen) 20 units SC QAM [facility] Stop: 06/27/19 08:59 Last Admin: 05/31/19 08:23 Dose: 20 units Documented by: Ipratropium Tensed (Atrovent 0.02% 0.5mg/2.5ml) 0.5 mg INH Q4R PRN PRN Reason: Shortness Of Breath Or Wheezing Stop: 06/18/19 10:59 Isosorbide Mononitrate (Imdur Extended Rel) 30 mg PO QAM [facility] Stop: 06/11/19 08:59 Last Admin: 05/31/19 08:26 Dose: 30 mg Documented by: Lactobacillus Acidophilus (Floranex) 4 tab PO QIDM [facility] Stop: 06/19/19 16:59 Last Admin: 05/31/19 08:24 Dose: 4 tab Documented by: Levalbuterol HCl (Xopenex 1.25mg/0.5ml Neb) 1.25 mg INH Q4R PRN PRN Reason: Shortness Of Breath Or Wheezin Stop: 06/18/19 10:59 Lidocaine (Lidoderm 5%) 1 patch TD QAM [facility] Stop: 06/13/19 15:44 Last Admin: 05/31/19 08:27 Dose: Not Given Documented by: Magnesium Oxide (Mag-Ox) 400 mg PO BID [facility] Stop: 06/09/19 20:59 Last Admin: 05/31/19 08:24 Dose: 400 mg Documented by: Metoprolol Succinate (Toprol Xl) 50 mg PO BID [facility] Stop: 06/18/19 19:44 Last Admin: 05/31/19 08:24 Dose: 50 mg Documented by: Miconazole Nitrate (Desenex) 1 appln EXT PRN PRN PRN Reason: TO RED SKIN FOLDS Stop: 06/21/19 11:34 Miscellaneous (Remove Nicoderm Patch) 1 ea N/A HS [facility] Stop: 06/10/19 20:59 Last Admin: 05/30/19 21:09 Dose: Not Given Documented by: Miscellaneous (Carbohydrates For Hypoglycemia) 15 - 30 gm PO PRN PRN PRN Reason: Hypoglycemia Treatment Stop: 06/09/19 20:59 Miscellaneous (Remove Lidoderm Patch) 1 ea N/A DAILY@2100 [facility] Stop: 06/13/19 20:59 Last Admin: 05/30/19 21:09 Dose: Not Given Documented by: Miscellaneous Information (Consult Glycemic Management Pharmacy) 1 ea N/A UD PRN PRN Reason: Consult Stop: 06/18/19 17:07 Morphine Sulfate (Ms Contin) 15 mg PO Q12 [facility] Stop: 06/06/19 20:59 Last Admin: 05/31/19 08:23 Dose: 15 mg Documented by: Nicotine (Nicoderm Cq) 21 mg TD QAM [facility] Stop: 06/10/19 08:59 Last Admin: 05/31/19 08:28 Dose: 21 mg Documented by: Nitroglycerin (Nitrostat) 0.4 mg SL UD PRN PRN Reason: CHEST PAIN Stop: 06/09/19 19:07 Last Admin: 05/25/19 15:55 Dose: 0.4 mg Documented by: Oxycodone HCl (Roxicodone Immediate Rel) 15 mg PO Q4H [facility] Stop: 06/06/19 19:59 Last Admin: 05/31/19 10:52 Dose: 15 mg Documented by: Pantoprazole Sodium (Protonix) 40 mg PO DAILY [facility]; Protocol Stop: 06/10/19 08:59 Last Admin: 05/31/19 08:24 Dose: 40 mg Documented by: Polyethylene Glycol (Miralax Powder Packet) 17 gm PO BID PRN PRN Reason: Constipation Stop: 06/09/19 19:07 Last Admin: 05/20/19 09:44 Dose: 17 gm Documented by: Prednisone (Prednisone) 40 mg PO DAILY [facility] Stop: 06/28/19 17:59 Last Admin: 05/31/19 08:24 Dose: 40 mg Documented by: Senna/Docusate Sodium (Senokot S) 1 tab PO BID [facility] Stop: 06/17/19 00:44 Last Admin: 05/31/19 08:23 Dose: 1 tab Documented by: Sodium Biphosphate/Sodium Phosphate (Fleet Enema) 133 ml ID UD PRN PRN Reason: Constipation Stop: 06/09/19 19:07 Tamsulosin HCl (Flomax) 0.4 mg PO DAILY [facility] Stop: 06/10/19 08:59 Last Admin: 05/31/19 08:26 Dose: 0.4 mg Documented by: Tiotropium Tensed (Spiriva) 1 puffs INH DAILY [facility] Stop: 06/10/19 08:59 Last Admin: 05/31/19 08:27 Dose: 1 puffs Documented by: Torsemide (Demadex) 20 mg PO BID@0900,1800 [facility] Stop: 06/26/19 08:59 Last Admin: 05/28/19 08:26 Dose: 20 mg Documented by: Tramadol HCl (Ultram) 50 mg PO Q4H PRN PRN Reason: Pain Stop: 06/09/19 19:07 Last Admin: 05/31/19 10:53 Dose: 50 mg Documented by: Warfarin Sodium (Coumadin) 7.5 mg PO DAILY@1600 [facility] Stop: 06/29/19 15:59 Last Admin: 05/30/19 16:32 Dose: 7.5 mg Documented by: (1) Chest pain Chest pain type: precordial pain Qualified Code(s): R07.2 - Precordial pain (2) Leukocytosis Leukocytosis type: unspecified Qualified Code(s): D72.829 - Elevated white blood cell count, unspecified
--- NOTE | 2019-05-31 12:09 | Discharge Summary ---
Date of Service May 31, 2019 Admission HPI Per Admitting Provider Is a 48-year-old obese male with significant past medical history of type 2 diabetes, hypertension, history of pulmonary embolism on Coumadin, depression with anxiety, chronic back pain on oral narcotics, COPD, urinary retention with chronic Lloyd and history of diastolic heart failure apparently has been complaining of on and off chest pain for the last few days. He has had chest pain on the day of discharge while he was in hospital recently at that time 2 sets of troponins were negative and the EKG did not show any significant change. He has been complaining of chest pain on and off since this morning and noted to have a heart rate of 180 as was reported while he was seen by home health nurse. On the way to the emergency room according to the patient and the the EMS noticed to have heart rate around 170 on 2 separate occasions but no documentation of that tracing. His chest pain in the precordial area and it radiates to the left arm and associated with some shortness of breath no sweating and no nausea and/or vomiting. He denies any fever and/or chills, any abdominal pain, any numbness or tingling in the extremities, any headache and weakness involving any extremities. In the ER he was hemodynamically stable and heparin investigation including EKG and troponin were negative and INR was noted to be 1.5. From that point he was admitted to telemetry unit for observation and intravenous heparin was administered and his Coumadin continued. If ruled out he will have a dobutamine stress echo tomorrow before discharge home. Admission Exam Per Admitting Provider Physical Exam: Sitting in a chair without any distress Constitutional: well developed, well nourished and + morbidly obese; no acute distress Eyes: PERRL, conjunctivae normal, anicteric sclerae ENMT: external ear and nose normal, oropharynx normal Neck: trachea midline, no thyromegaly Respiratory: normal respiratory effort; no respiratory distress Auscultation: + diminished lung sounds and + crackles (Minimal crackles at the bases) Cardiovascular: Rate/Rhythm: regular rate and regular rhythm Heart Sounds: no murmur Extremities: + edema (1+ bilateral) Gastrointestinal (Abdomen): Inspection/Auscultation: abdomen normal to inspection, + abdomen distended and normal bowel sounds Percussion/Palpation: abdomen soft Skin: Chronic ischemic changes legs Neurologic: moves all extremities; no focal motor deficits Lymphatic: no cervical or axillary lymphadenopathy Principal Diagnosis Chest pain-no ACS , paroxysmal palpitation-no documentation/finding on monitor, COPD exacerbation, chronic diastolic CHF, indwelling Lloyd catheter, chronic pain, recurrent PE on Coumadin Discharge Exam Constitutional well developed, well nourished and + morbidly obese; no acute distress and not ill appearing Eyes PERRL, conjunctivae normal, anicteric sclerae ENMT external ear and nose normal, oropharynx normal Neck trachea midline, no thyromegaly Respiratory no respiratory distress Auscultation: + diminished lung sounds, + crackles (Minimal crackles left base) and + wheezes (Almost gone) Cardiovascular Rate/Rhythm: regular rate and regular rhythm Heart Sounds: no murmur Extremities: + edema (Bilateral leg edema has improved a lot) Gastrointestinal (Abdomen) Inspection/Auscultation: + abdomen distended and normal bowel sounds Percussion/Palpation: abdomen soft; abdomen nontender Neurologic moves all extremities; no focal motor deficits Genitourinary + testes abnormality (Tenderness with movement, no swelling, no redness) and + testicular tenderness Lymphatic no cervical or axillary lymphadenopathy Discharge Data Allergies Allergy/AdvReac Type Severity Reaction Status Date / Time fentanyl Allergy Intermediate RASH/HIVES/SKIN Verified 05/10/19 15:02 REDNESS acetaminophen AdvReac Intermediate Unknown Verified 05/10/19 15:02 valproic acid AdvReac Intermediate PANCREATITS Verified 05/10/19 15:02 Consultations 05/10/19 16:05 ED Decision to Admit Stat 05/10/19 17:34 Consult Patient Rep / Service Excellence [Consult Patient Services] Routine 05/11/19 10:58 Consult Cardiology Routine 05/12/19 12:28 Consult Pain Management Routine 05/19/19 08:17 Consult Nephrology Routine 05/22/19 09:19 Consult Urology Routine Ordered Studies 05/20/19 15:07 CT abd pelvis wo con Stat 05/24/19 11:23 US venous doppler LE BI Routine 05/29/19 21:27 US scrotum/testicle Urgent Hospital Course (1) Chest pain: (1) Chest pain: ACS ruled out [employer] consulted ISMO has been changed to IMDUR 30 mg once a day and beta-nasim has been increased No further cardiology work-up No more chest pain and/or palpitation (+) recurrence on 05/23/19 at around 6pm EKG: no signs of acute infarct troponins x3 ordered-remained negative minimal relief with nitro Chest pain seems to be noncardiac Has had chest pain last evening with normal EKG and negative troponin No more cardiac symptoms Recurrent PE? CTA could not be done due to increasing creatinine INR 1.5 and started on intravenous heparin coumadin 10mg po ordered and will continue current INR is therapeutic Ultrasound of the legs-negative for any DVT CTA has been canceled Denies any increasing shortness of breath or chest pain INR is 3. 8 today We will hold Coumadin INR is therapeutic today, will continue Coumadin INR is 1.5 today Continue Coumadin and repeat INR day after tomorrow COPD Exacerbation d/c Prednisone and resume Solumedrol 40mg q8h (monitor BSG, Pharmacy consulted for Glycemic control) Nebs q4h Clinically improved Sleep more than 5 days of steroid and will not give any more (2) Palpitations: no tachycardia or tachyarrhythmias noted on monitor may benefit from outpatient cardiac monitoring Did not have any episode of tachycardia while his heart was monitored in the hospital (3) Chronic diastolic CHF (congestive heart failure) Possible Acute on Chronic Diastolic CHF weight trending up crea also increased to 1.7 [employer] consulted - Lasix IV started -decreased to 20mg q12h today -crea improved to 1.2 - negative fluid balance -weight down from 202 to 199kg - discussed with Nephro SVC - will resume usual Torsemide 20mg BID for now -Creatinine has been normalized -We will start his usual doses of diuretics-on hold now due to increasing creatinine 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 management per #1 (6) Depression with anxiety: stable (7) Chronic pain disorder: pain management consulted discussed with patient, pain better controlled, will wean off/ discontinue IV Dilaudid-- Dilaudid IV x1 tomorrow, then STOP Increasing pain at the back and bilateral inflamed Has been difficult to move around Will give additional dose of 1 medial Dilaudid in the afternoon Requiring 2 doses of Dilaudid in the morning and in the afternoon for increasing pain with movement Complaints to have increasing pain at the back with radiation to the legs No more additional narcotics as per recommendation from the pain therapist in the hospital Will make an appointment with his outpatient pain therapist on the day of nicole oshea Has appointment with his pain therapist on at 10 AM DVT prophylaxis On intravenous heparin and oral Coumadin Monitor INR-INR is subtherapeutic at 1.3 We will supervise the dose of Coumadin 7.5 mg Continue heparin and oral Coumadin Remains subtherapeutic Continue oral Coumadin 10 mg daily with intravenous heparin for now INR is 2.5 today We will continue Coumadin 7.5mg daily CODE STATUS Full Disposition pending Likely discharge in a day or 2 (2) Leukocytosis: White cell count noted to be more than 23,000 Has been getting ceftriaxone for UTI We will get chest x-ray and rule out C. difficile diarrhea Chest x-ray shows possible retrocardiac shadow Will start intravenous doxycycline Leukocytosis he seems to be secondary to use of steroid Will DC IV Solu-Medrol We will start 40 mg oral prednisone from today We will continue tapering dose of steroid on discharge Generalized anxiety disorder Has been having more anxiety symptoms We will try to give intravenous Ativan 0.5 mg twice daily as needed Disposition Medically stable to be discharged The patient does not have any pain medications at home He has been on high-dose of narcotics We cannot give any prescription of narcotics and that has to come from the pain therapist He has an appointment with the pain therapist on Will be discharged from the hospital on Likely be discharged tomorrow Discussed with Dr. Carter and the patient about discharge tomorrow He decided to go home tomorrow around 2:00PM provided he is stable and labs are reasonable He will get 1 day home dose of narcotics to take He will keep appointment with his pain therapist on at 10:00 as a scheduled Discussed with pharmacist to supply about 1 day dose of narcotics on discharge He has been medically stable for the last few days without any acute symptoms acute abnormalities in the blood test or x-ray,EKG He will be discharged this afternoon He was strongly advised to keep appointment with his pain therapist tomorrow Total Time Total Time Spent Total Time Spent (In Minutes): 45 minutes Total Time Includes: Examination of the Patient, Discharge Planning, Medication Reconciliation and Communication With Other Providers Discharge Plan Discharge Items Patient Disposition: Home - Home Health Services Reason For Visit: CHEST PAIN,PALPITATION Discharge Diagnosis: Chest pain-no ACS , paroxysmal palpitation-no documentation/finding on monitor, COPD exacerbation, chronic diastolic CHF, indwelling Lloyd catheter, chronic pain, recurrent PE on Coumadin, Condition on Discharge: Good Activity: Resume your previous activity Non-emergency contact: Primary Care Provider Call non-emergency contact if: you have any medication questions and your symptoms worsen Follow-up/Referrals: Arron Kenney MD [Physician] - 06/14/19 9:10 am Ramos Pollock MD [Surgeon] - 06/16/19 1:00 pm Owen Hogan MD [Primary Care Provider] - 06/08/19 10:05 am Diet: Carb Consistent or DM2, Heart Healthy and Low Sodium (2gm) Fluids: 2000ml (8 cups) Addtl Attending Provider Instructions: Please take extreme precaution to avoid falls. Follow diabetic diet and low salt intake. Fluid restrictions up to 2000 mL in 24 hours Keep your appointments as advised. Please have your INR checked tomorrow or day after tomorrow and have Coumadin dosed New and changed medications: Doxycycline 100 mg twice daily for 3 days & Lactinex Prednisone 10 mg pills as directed Toprol-XL has been increased to 50 mg twice daily Isosorbide mononitrate has been increased to 30 mg to control chest pain Stopped medication Spironolactone has been stopped completely for now Torsemide dose has been decreased to 20 mg once daily Pending Studies at Discharge: No Stand-Alone Forms: Call Back Authorization, [facility] Medications and DC Order Prescriptions: New doxycycline hyclate 100 mg Capsule 100 mg PO BID@0700,1900 3 Days Qty: 6 RF: 0 metoprolol succinate 50 mg Tablet Extended Release 24 Hr 50 mg PO BID 30 Days Qty: 60 RF: 0 isosorbide mononitrate 30 mg Tablet Extended Release 24 Hr 30 mg PO QAM 30 Days Qty: 30 RF: 0 lidocaine 5 % Adhesive Patch,Medicated 1 patch transdermal QAM 30 Days Qty: 30 RF: 0 prednisone 10 mg tablet 10 mg PO UD Qty: 18 RF: 0 Lactinex 1 million cell tablet,chewable 2 tab PO BID Qty: 30 RF: 0 Continued gabapentin 300 mg Capsule 300 mg PO TID RF: 0 ondansetron 4 mg Tablet,Disintegrating 4 mg PO Q4H PRN (Reason: Nausea And Vomiting) RF: 0 polyethylene glycol 3350 [Miralax] 17 gram powder in packet 17 g PO Q24H PRN (Reason: Constipation) RF: 0 nitroglycerin [Nitrostat] 0.4 mg tablet, sublingual 0.4 mg Sublingual DIRECTED PRN (Reason: CHEST PAIN) RF: 0 docusate sodium 100 mg capsule 100 mg PO BID RF: 0 Fleet Enema 19-7 gram/118 mL Enema 133 ml NE DIRECTED PRN (Reason: Constipation) RF: 0 nystatin 100,000 unit/gram Powder 1 applic TOPICAL BID PRN (Reason: Skin Irritation) RF: 0 ipratropium-albuterol 0.5 mg-3 mg(2.5 mg base)/3 mL Solution For Nebulization 3 ml INHALATION Q4H PRN (Reason: Shortness Of Breath Or Wheezing) RF: 0 potassium chloride 10 mEq tablet,ER particles/crystals 10 meq PO BID RF: 0 omeprazole 20 mg capsule,delayed release(DR/EC) 20 mg PO QAM RF: 0 cyclobenzaprine 10 mg Tablet 10 mg PO BID RF: 0 morphine [MS Contin] 15 mg tablet extended release 15 mg PO Q12 RF: 0 oxycodone 15 mg tablet 15 mg PO Q4H RF: 0 magnesium oxide 400 mg (241.3 mg magnesium) Tablet 400 mg PO BID 30 Days Qty: 60 RF: 0 nicotine [Nicoderm CQ] 21 mg/24 hr Patch 24 Hour 21 mg transdermal QAM 30 Days Qty: 30 RF: 0 warfarin [Coumadin] 5 mg tablet 7.5 mg PO DAILY Qty: 0 RF: 0 lorazepam [Ativan] 1 mg tablet 1 mg PO Q12H PRN (Reason: anxiety) Qty: 7 RF: 0 hydroxyzine HCl 25 mg tablet 25 mg PO QID PRN (Reason: Anxiety) RF: 0 fluticasone propionate 50 mcg/actuation spray,suspension 2 spray Intranasal QAM RF: 0 aspirin [Ecotrin Low Strength] 81 mg tablet,delayed release (DR/EC) 81 mg PO QAM RF: 0 duloxetine 60 mg capsule,delayed release(DR/EC) 60 mg PO QAM RF: 0 Spiriva with HandiHaler 18 mcg capsule, w/inhalation device 1 puff inhalation DAILY RF: 0 finasteride 5 mg tablet 5 mg PO QAM RF: 0 tamsulosin [Flomax] 0.4 mg Capsule 0.4 mg PO DAILY RF: 0 albuterol sulfate [Ventolin HFA] 90 mcg/actuation HFA aerosol inhaler 2 puff inhalation Q4H PRN (Reason: Wheezing) RF: 0 tramadol 50 mg tablet 50 mg PO Q4H PRN (Reason: Pain) Qty: 10 RF: 0 Changed torsemide 10 mg tablet 20 mg PO DAILY Qty: 0 RF: 0 Discontinued metoprolol succinate 25 mg tablet extended release 24 hr 25 mg PO BID RF: 0 spironolactone 50 mg tablet 50 mg PO BID RF: 0 isosorbide dinitrate 10 mg tablet 10 mg PO BID RF: 0 Discharge Orders: Discharge Order (Routine); Ordered 05/31/19 Ordered By: Augustus Vasquez Admission Data Admit Date/Time: 05/12/19 14:09 Attending Provider: Xu Silvestre Admit Provider: Augustus Vasquez Primary Care Provider: Owen Hogan Other Providers: Hospice,Family ; Augustus Vasquez ; Dick Cardoza ; Keren Cao ; Demetria Arizmendi ; Arron Kenney I. ; Romulo Clark
== END 2019-05-31 14:04 | disposition home health service (06) | DRG 308 ==
LOC: 2S 14:23 → ED 14:23 → 2S 18:31 → SUATTDRO 05-12 14:09 → 4W 05-18 15:54
DX: J44.1 Chronic obstructive pulmonary disease with (acute) exacerbation; R00.2 Palpitations; I50.33 Acute on chronic diastolic (congestive) heart failure; Z79.82 Long term (current) use of aspirin; Z79.01 Long term (current) use of anticoagulants; F41.1 Generalized anxiety disorder; Z82.49 Family history of ischemic heart disease and other diseases of the circulatory system; B96.20 Unspecified Escherichia coli [E. coli] as the cause of diseases classified elsewhere; Y92.009 Unspecified place in unspecified non-institutional (private) residence as the place of occurrence of the external cause; T83.511A Infection and inflammatory reaction due to indwelling urethral catheter, initial encounter; Y84.6 Urinary catheterization as the cause of abnormal reaction of the patient, or of later complication, without mention of misadventure at the time of the procedure; F41.8 Other specified anxiety disorders; F17.210 Nicotine dependence, cigarettes, uncomplicated; N40.1 Benign prostatic hyperplasia with lower urinary tract symptoms; R33.9 Retention of urine, unspecified; I27.82 Chronic pulmonary embolism; F17.200 Nicotine dependence, unspecified, uncomplicated; T50.2X5A Adverse effect of carbonic-anhydrase inhibitors, benzothiadiazides and other diuretics, initial encounter; Z68.43 Body mass index [BMI] 50.0-59.9, adult; I13.0 Hypertensive heart and chronic kidney disease with heart failure and stage 1 through stage 4 chronic kidney disease, or unspecified chronic kidney disease; N17.9 Acute kidney failure, unspecified; N18.9 Chronic kidney disease, unspecified; G89.4 Chronic pain syndrome; N39.0 Urinary tract infection, site not specified; F11.20 Opioid dependence, uncomplicated; R07.89 Other chest pain; Z91.19 Patient's noncompliance with other medical treatment and regimen; E66.01 Morbid (severe) obesity due to excess calories; E11.22 Type 2 diabetes mellitus with diabetic chronic kidney disease

== ENCOUNTER 2019-06-10 19:36 | Inpatient (IN) ==
[2019-06-10] MEDS ORDERED: methylPREDNISolone 60 MG in SYRINGE 1 ML IV STA (20:17)
[2019-06-10] MEDS ORDERED: ALBUT/IPRATROP 3MG/0.5MG NEB 3 ML VIAL NEB STA (20:17)
[2019-06-10 21:15] LABS: Hematocrit (blood only) 32.9 % (42-52); Hemoglobin 10.3 g/dL (14.0-18.0); Immature Granulocytes # (auto) 0.09 K/uL (0.00-0.02); Immature Granulocytes % (auto) 0.6 %; Lymphocytes # (auto) 0.62 K/uL (1.2-3.4); Mean Corpuscular Hemoglobin 24.3 pg (25-34); Mean Corpuscular Hgb Conc 31.3 g/dL (32-36); Mean Corpuscular Volume 77.8 fL (80-100); Mean Platelet Volume 10.7 fL (7.4-10.4); Monocytes # (auto) 0.53 K/uL (0.11-0.59); Monocytes % (auto) 3.4 %; Neutrophils # (auto) 14.42 K/uL (1.4-6.5); Platelet Count 174 K/uL (130-400); RDW Coefficient of Variation 21.7 % (11.5-14.5); RDW Standard Deviation 61.8 fL (36.4-46.3); Red Blood Count 4.23 M/uL (4.7-6.1); White Blood Count 15.66 K/uL (4.8-10.8)
[2019-06-10 21:22] LABS: Alanine Aminotransferase 36 U/L (12-78); Albumin Level 2.9 gm/dl (3.4-5.0); Aspartate Aminotransferase 13 U/L (15-37); BUN Creatinine Ratio 17.2 (10-20); Blood Urea Nitrogen 29 mg/dl (7-18); Calcium 8.6 mg/dl (8.5-10.1); Carbon Dioxide 23 mmol/L (21-32); Chloride 100 mmol/L (98-107); Est GFR (African American) 54.1; Est GFR (Non-African American) 46.7; Glucose 240 mg/dl (70-99); Magnesium 1.9 mg/dl (1.8-2.4); Potassium 4.2 mmol/L (3.5-5.1); Sodium 135 mmol/L (136-145)
[2019-06-10] MEDS ORDERED: FUROSEMIDE 40 MG/4 ML VIAL IV STA (21:24)
[2019-06-10 21:27] LABS: Albumin Globulin Ratio 0.8 (0.9-2); Alkaline Phosphatase 122 U/L (45-117); Bilirubin,Total 0.2 mg/dl (0.2-1); Globulin 3.4 gm/dl (2.5-4.0); NT Pro B Type Natriuretic Pept 611 pg/ml (0-450); Total Protein 6.3 gm/dl (6.4-8.2); Troponin I < 0.015 ng/ml (0-0.045)
[2019-06-10 21:31] LABS: Partial Thromboplastin Ratio 2.4
[2019-06-10 21:40] LABS: Base Excess VBG -1.4 mEq/L; Oxygen Saturation VBG 87.7 %; pH VBG 7.43 (7.36-7.41)
--- NOTE | 2019-06-10 21:47 | XRay Report ---
XR chest 1V portable HISTORY: Shortness of breath. COMPARISON: Chest 05/25/2019. FINDINGS: The heart is mildly enlarged. No pneumothorax. Small left pleural effusion. Progression of the interstitial and vascular thickening consistent with mild congestive change. No new focal lung co nsolidations. IMPRESSION: Mild pulmonary vascular congestion and a small left pleural effusion. This has progressed in the inte rval. Electronically signed by: Vidal Keller M.D. 06/10/2019 9:45 PM
[2019-06-10 21:49] LABS: Prothrombin Time > 90.0 Seconds (9.0-12.0)
[2019-06-10 21:51] LABS: INR > 10.0 (0.9-1.1); Partial Thromboplastin Time 65.9 Seconds (21.0-31.0)
[2019-06-10 21:52] LABS: Anisocytosis Present; Polychromasia 1+
[2019-06-10] MEDS ORDERED: PHYTONADIONE 5 MG in SODIUM CHLORIDE 0.9% 50 ML IV ONE (22:02)
[2019-06-11] MEDS ORDERED: NITROGLYCERIN SL 0.4 MG/TAB TAB SL PRN ×2 (00:26)
[2019-06-11] MEDS ORDERED: VANCOMYCIN HCL 1,000 MG in SODIUM CHLORIDE 0.9% 250 ML IV SCH (00:26)
[2019-06-11] MEDS ORDERED: NYSTATIN POWDER 15GM BTL EXT PRN (00:26)
[2019-06-11] MEDS ORDERED: ONDANSETRON INJ 2 MG/ML 2 ML VIAL IV PRN (00:26)
[2019-06-11] MEDS ORDERED: ACETAMINOPHEN 325 MG TAB PO PRN (00:26)
[2019-06-11] MEDS ORDERED: VANCOMYCIN CONSULT ACTIVE PRN (00:26)
[2019-06-11] MEDS ORDERED: ALBUTEROL HFA 8 GM INHALER INH PRN (00:26)
[2019-06-11] MEDS ORDERED: PIPERACILL/TAZOBAC CONSULT ACTIVE PRN (00:26)
[2019-06-11] MEDS ORDERED: PIPERACILLIN/TAZOBACTAM 4.5 GM in DEXTROSE 5% 100 ML IV ONE (00:26)
[2019-06-11] MEDS ORDERED: SOD PHOSPHATE/SOD BIPHOSPHATE ENEMA 132 ML BTL PR PRN (00:26)
[2019-06-11] MEDS ORDERED: ALBUT/IPRATROP 3MG/0.5MG NEB 3 ML VIAL INH PRN (00:26)
[2019-06-11] MEDS ORDERED: LIDOCAINE 5% 1 PATCH TD PRN (00:26)
[2019-06-11] MEDS ORDERED: POLYETHYLENE (MIRALAX) 17 GM PACK PO PRN (00:37)
[2019-06-11 00:50] LABS: Appearance Urine Clear (Clear); Bacteria Urine Automated Negative (Negative); Bilirubin Urine Negative (Negative); Blood Urine 2+ (Negative); Cast Urine Automated 0 /lpf (0-5); Color Urine Yellow; Epithelial Cell Urine Auto 0-5 /lpf (0-5); Glucose Urine UA Negative (Negative); Ketones Urine Negative (Negative); Leukocyte Esterase Urine Negative (Negative); Nitrite Urine Positive (Negative); Protein Urine Negative (Negative); Specific Gravity Urine 1.013 (1.000-1.030); Urobilinogen Urine Negative (Negative); pH Urine 5.5 (4.5-7.5)
[2019-06-11] MEDS ORDERED: VANCOMYCIN HCL 2,750 MG in SODIUM CHLORIDE 0.9% 500 ML IV ONE (01:15)
[2019-06-11 01:22] LABS: Hematocrit (blood only) 34.6 % (42-52); Hemoglobin 10.9 g/dL (14.0-18.0); Immature Granulocytes # (auto) 0.09 K/uL (0.00-0.02); Immature Granulocytes % (auto) 0.6 %; Lymphocytes # (auto) 0.86 K/uL (1.2-3.4); Lymphocytes % (auto) 5.5 %; Mean Corpuscular Hemoglobin 24.2 pg (25-34); Mean Corpuscular Hgb Conc 31.5 g/dL (32-36); Mean Corpuscular Volume 76.9 fL (80-100); Mean Platelet Volume 9.9 fL (7.4-10.4); Monocytes # (auto) 0.32 K/uL (0.11-0.59); Monocytes % (auto) 2.1 %; Neutrophils # (auto) 14.29 K/uL (1.4-6.5); Neutrophils % (auto) 91.8 %; Platelet Count 180 K/uL (130-400); RDW Coefficient of Variation 21.6 % (11.5-14.5); RDW Standard Deviation 60.2 fL (36.4-46.3); White Blood Count 15.56 K/uL (4.8-10.8)
[2019-06-11 01:38] LABS: BUN Creatinine Ratio 18.3 (10-20); Blood Urea Nitrogen 26 mg/dl (7-18); Calcium 8.7 mg/dl (8.5-10.1); Carbon Dioxide 31 mmol/L (21-32); Chloride 99 mmol/L (98-107); Creatinine Clr Calc Pharmacy 114.7 ml/min; Est GFR (African American) 68.4; Glucose 199 mg/dl (70-99); Magnesium 2.1 mg/dl (1.8-2.4); Potassium 4.1 mmol/L (3.5-5.1); Sodium 138 mmol/L (136-145)
[2019-06-11 01:43] LABS: Troponin I < 0.015 ng/ml (0-0.045)
--- NOTE | 2019-06-11 01:44 | History and Physical Report ---
DATE OF ADMISSION: 06/10/2019 CHIEF COMPLAINT: Lethargy. HISTORY OF PRESENT ILLNESS: This is a 48-year-old male with past medical history significant for type 2 diabetes, hypertension, history of pulmonary embolism, on Coumadin, depression with anxiety, chronic back pain on oral narcotics, COPD, urinary retention with chronic Lloyd, history of diastolic congestive heart failure, history of recurrent hospitalizations for CHF and chest pains. Recent admission ACS was ruled out. At that could not do a CTA of the chest because of elevated creatinine, but received heparin and he was continued with Coumadin. And also he was treated with prednisone, with steroids for his COPD exacerbation. There was a question of palpitations, but in the hospital there were no arrhythmias noted.He was also given IV Lasix for CHF. Nephrology was contacted as his creatinine was climbing up to 1.7 and he was discharged on torsemide 20 mg daily and stopped his Aldactone at discharge, and his urine had E. coli was treated with Rocephin and for chronic pain he was consulted with pain doctor as he was requesting for pain medications. Seen by pain doctor. He did okay finally and was discharged. He was in the hospital from 05/12/2019 to 06/01/2019. He had a followup appointment with family doctor a couple of days ago and he mentioned about weight gain as per PCP notes and also as per girlfriend. It seems he was also discharged with pain management as per girlfriend because he was a no show before.His girlfriend says he gained about 17 pounds and recently his INR was checked, it was 7,. Girl friend states since yesterday night and today morning, the patient is lethargic, sleeping all the time, and he also fell down a couple of days ago. He is mostly nonambulatory. With great difficulty, he ambulates. Since today morning, she did not given any pain medications. As he was discharged from pain clinic as per girl friend he is just getting the pain medications which were left over. The patient also complained of some double vision on the right eye in the morning. Currently, patient is very drowsy, sleepy, somewhat hard to wake him up, can tell his name, knows that he is in the [facility], could not tell the dates.Moves his extremities on command and he goes back to sleep. Could not get much history from the patient. As per the , no diarrhea or constipation. Moving his bowels and bladder okay. Has complained of some headache, but denies any other pain. No cough, no nausea, no vomiting. He is just sleeping all day today. Currently his hemodynamics are stable in the ER. Received IV lasix in er has cxr showed some congestion and lower extremities were edematous and possibly some mild erythematous changes. . His white count is 15, but he is on prednisone, it was 20 at the time of discharge. Hemoglobin is 10.3, it was 12.9 at the time of discharge, but could be dilutional. His INR is greater than 10, he got 5 mg of vitamin K in the ER. His venous blood gases are okay. His creatinine is 1.7. LFTs are okay. Troponin is negative. Chest x-ray showed mild congestion. ALLERGIES: FENTANYL, ACETAMINOPHEN, VALPROIC ACID. PAST MEDICAL HISTORY: As mentioned above. PAST SURGICAL HISTORY: Colonoscopy, EGDs with endoscopic ultrasound, foot surgery, repair of the left finger tendon, repair of the left collateral ligament. MEDICATIONS: The patient was recently discharged on metoprolol succinate 50 mg p.o. b.i.d., Imdur 30 mg p.o. in the a.m., lidocaine patch q.a.m., prednisone 10 mg p.o. daily, lactinex 2 tablets p.o. b.i.d., gabapentin 300 mg p.o. t.i.d., Zofran 4 mg p.o. q. 4 hours p.r.n., MiraLax 17 grams p.o. daily p.r.n., nitroglycerin 0.4 mg sublingual p.r.n., Colace 100 mg p.o. b.i.d., Fleet enema p.r.n., nystatin topical b.i.d. p.r.n., DuoNebs every 4 hours p.r.n., potassium chloride 10 mEq p.o. b.i.d., omeprazole 20 mg p.o. a.m., cyclobenzaprine 10 mg p.o. b.i.d., morphine 15 mg p.o. q. 12 hours, MS Contin 15 mg p.o. q. 12 hours, oxycodone 15 mg p.o. q. 4 hours p.r.n., magnesium oxide 400 mg p.o. b.i.d., nicotine patch 21 mg p.o. q.a.m., warfarin as directed, Ativan 1 mg p.o. q. 12 hours p.r.n., hydroxyzine 25 mg p.o. q.i.d. p.r.n., Flonase 2 sprays intranasally a.m., aspirin 81 mg p.o. a.m., Dulcolax 60 mg p.o. a.m., Spiriva 1 puff inhalation daily, finasteride 5 mg p.o. a.m., Flomax 0.4 mg p.o. daily, albuterol 2 puffs inhalation q. 4 hours p.r.n., tramadol 50 mg p.o. q. 4 hours p.r.n., torsemide 20 mg p.o. daily. FAMILY HISTORY: Significant for sister has breast cancer, mother had musculoskeletal disorder, father has aneurysm, maternal grandmother has [place]. SOCIAL HISTORY: Currently lives with his fiance. Smokes 1.5 packs a day for 10 years, currently uses smokeless tobacco. No alcohol use. History of narcotic prescription pain medication dependence. Disabled. REVIEW OF SYSTEMS: Unobtainable as patient is currently lethargic and drowsy. PHYSICAL EXAMINATION: GENERAL: The patient is drowsy, difficult to arouse, but oriented to name and place. VITAL SIGNS: Temperature 37.1, pulse 86, respiratory rate 22, blood pressure 116/80, oxygen 96% on room air. HEENT: Pupils are somewhat dilated, but reactive to light, no icterus. NECK: No JVD, no neck masses. CARDIOVASCULAR: S1, S2 heard, regular rate and rhythm, no murmur, no gallop. RESPIRATORY SYSTEM: Normal AP diameter. No accessory muscle use. Mild bilateral wheezing. ABDOMEN: Soft, bowel sounds present. No distention. No obvious tenderness. CENTRAL NERVOUS SYSTEM: Drowsy, difficult to arouse, but oriented to name and place, obeys simple commands. Moves extremities. EXTREMITIES: Bilateral lower extremity gross edema seen and mild erythematous changes. LABORATORY DATA: WBC 15, hemoglobin 10.3, hematocrit 32.9, platelets 174. PT greater than 9, INR greater than 10, APTT 65.9. Venous blood gases, pH 7.4, pCO2 of 35, venous pO2 56, venous bicarbonate 23. Sodium 135, potassium 4.2, chloride 100, bicarbonate 23, BUN 29, creatinine 1.7, serum glucose 240, calcium 8.6, magnesium 1.9, total bilirubin 0.2, AST 13, ALT 36, alkaline phosphatase 122, ammonia 17.1. Troponin I less than 0.015. BNP 611. Mild pulmonary vascular congestion and small left pleural effusion. This has progressed in the interval. ASSESSMENT AND PLAN: This is a 48-year-old male who presents with lethargy and drowsiness. 1. Lethargy and drowsiness. The patient is on Coumadin for his pulmonary embolism. INR is greater than 10. Received iv vitamin K 5 mg. His lethargy could be from his chronic pain medication because he has also some twitching of the body. We will get a CT of the head to rule out any central causes as the patient's INR is elevated, possible infection with lower extremity cellulitis. ABGs are okay. We will place him on IV antibiotics, vancomycin and Zosyn. Follow the cultures. We will get stat CT of the head and if is negative, we will try Narcan. Monitor closely in tele floor. There is a question of double vision too. If the CT of the head is negative, still symptomatic will also get MRI scan. 2. [id number] diastolic congestive heart failure. Last admission, he was discharged on torsemide 20 mg p.o. daily. He seems to be gaining weight at home and has lower extremity edema. will place him on IV Lasix b.i.d. and consult cardiology for further recommendations. 3. Acute kidney injury on chronic kidney stage III. Baseline creatinine around 1.3, presently creatinine of 1.7. Getting IV Lasix. If it worsens, we will consult nephrology. 4. Possible chronic obstructive pulmonary disease exacerbation with wheezing. We will place on IV Solu-Medrol 40 t.i.d. Nebs ATC, Will continue his home nebs and inhalers and is getting antibiotics as above. We will monitor. 5. History of chest pain. Last admission his Toprol-XL was increased and Imdur was added.. We will continue the same withholding parameters. 6. History of recurrent pulmonary embolism, currently INR is greater than 10, continue vitamin K. We will follow the INR. If INR goes less than 2, we will place him on heparin if there is no contraindication. 7. Urinary retention, chronic indwelling catheter. Supposed to follow with urology as outpatient. Currently continue the catheter. We will also follow the cultures. 8. Chronic pain disorder. Currently will hold all his pain medications and also his gabapentin and Flexeril and his Ativan until his mental status improves. 9. Depression and anxiety. Currently on Ativan, will monitor. 10. Deep venous thrombosis prophylaxis. 11. Leukocytosis, possibly from steroids, antibiotics as above. 12. Deep venous thrombosis prophylaxis. INR is supratherapeutic. DISPOSITION: Closely monitor in tele floor. Level 1 full code. Disposition to be determined. MTDD
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
[2019-06-11 02:09] LABS: Prothrombin Time > 90.0 Seconds (9.0-12.0)
[2019-06-11 02:15] LABS: Anisocytosis Present; Polychromasia 1+
[2019-06-11 02:21] LABS: INR 10.4 (0.9-1.1)
[2019-06-11] MEDS ORDERED: PHYTONADIONE 2.5 MG in SODIUM CHLORIDE 0.9% 50 ML IV ONE (02:24)
[2019-06-11] MEDS: MoRPHine SULFATE CR 15 MG TABCR PO SCH ×3 (02:39→20:48)
--- NOTE | 2019-06-11 05:29 | CT Scan Report ---
CT head/brain wo con CLINICAL HISTORY: 48 years-old Male presenting with ams. elevated INR. TECHNIQUE: Multidetector CT imaging of the head was performed without the use of intravenous contrast . IV contrast: None. One or more dose lowering techniques were used consistent with the principles of ALARA (as low as reasonably achievable), including automatic exposure control, mA or kV adjustment t o individual patient size, and/or use of iterative reconstruction. COMPARISON: 04/03/2019. CT DOSE (mGy.cm): The estimated cumulative dose is 614.27 mGy.cm. FINDINGS: Seals Engraver topogram: The patient is edentulous. Ventricles and sulci normal in size. No hemorrhage. Brain parenchyma normal in appearance with preser nani donald-white differentiation. No acute territorial infarct. No mass effect or midline shift. No ext ra-axial fluid collection. Sclerosis of the maxillary sinus subramanian and mild polypoid mucosal thickenin g in the right maxillary sinus. Trace fluid in the left mastoid air cells. Calvarium intact. IMPRESSION: 1. No acute intracranial abnormality. 2. Chronic sinusitis. Electronically signed by: Joey Merida M.D. 06/11/2019 5:28 AM
[2019-06-11] MEDS: PIPERACILLIN/TAZOBACTAM 4.5 GM in DEXTROSE 5% 100 ML IV SCH ×3 (06:39→20:50)
[2019-06-11 07:18] LABS: Prothrombin Time 78.4 Seconds (9.0-12.0)
[2019-06-11] MEDS: ALBUT/IPRATROP 3MG/0.5MG NEB 3 ML VIAL NEB SCH ×3 (07:19→19:11)
[2019-06-11] MEDS: OXYCODONE HCL IR 5 MG TAB (IMMEDIATE RELEASE) PO PRN ×4 (07:41→21:36)
[2019-06-11] MEDS: FLUTICASONE PROPIONATE NA SPR 16 GM BTL SCH (08:45)
[2019-06-11] MEDS: TIOTROPIUM BROMIDE 5 PUFF/90 MCG INH INH SCH (08:47)
[2019-06-11] MEDS: PANTOprazole 40 MG TAB PO SCH (08:48)
[2019-06-11] MEDS: FINASTERIDE 5 MG TAB PO SCH (08:49)
[2019-06-11] MEDS: GABAPENTIN 300 MG CAP PO SCH ×3 (08:49→20:48)
[2019-06-11] MEDS: LACTOBACILLUS ACIDOPHILUS (FLORANEX) TAB PO SCH (08:51)
[2019-06-11] MEDS: POTASSIUM CHLORIDE 10 MEQ TABCR PO SCH (08:53)
[2019-06-11] MEDS: DOCUSATE SODIUM 100 MG CAP PO SCH ×2 (08:55→20:50)
[2019-06-11] MEDS: CYCLOBENZAPRINE HCL 10 MG TAB PO SCH ×2 (08:55→20:47)
[2019-06-11] MEDS: DULOXETINE HCL 60 MG CAP PO SCH (08:55)
[2019-06-11] MEDS: ASPIRIN 81 MG ECTAB PO SCH (08:55)
[2019-06-11] MEDS: ISOSORBIDE MONO EXTENDED REL 30 MG TABCR PO SCH (08:55)
[2019-06-11] MEDS: TAMSULOSIN HCL 0.4 MG CAP PO SCH (08:55)
[2019-06-11] MEDS: METOPROLOL SUCC 50MG EXT REL TAB PO SCH ×2 (08:55→20:49)
[2019-06-11] MEDS ORDERED: FUROSEMIDE 40 MG/4 ML VIAL IV SCH (09:00)
[2019-06-11] MEDS ORDERED: methylPREDNISolone 40 MG in SYRINGE 0 ML IV SCH (09:00)
[2019-06-11] MEDS ORDERED: SODIUM CHLORIDE 0.65% NA SOLN 45 ML (OCEAN) PRN (09:43)
[2019-06-11] MEDS: FUROSEMIDE 40 MG in SYRINGE 0 ML IV SCH ×2 (10:05→17:14)
[2019-06-11] MEDS: methylPREDNISolone 40 MG in SYRINGE 0 ML IV SCH ×2 (10:05→13:08)
[2019-06-11] MEDS: TRAMADOL HCL 50 MG TABLET PO PRN ×3 (12:24→21:39)
--- NOTE | 2019-06-11 13:53 | Hospitalist Progress Note ---
Date of Service June 11, 2019 Assessment & Plan (1) Metabolic encephalopathy: He presented to ER with lethargy and pleasantly confused Noted to have very drowsy as well Suspected overuse of narcotics pain medication Narcan was not given for short of indication Confusion completely resolved (2) CHF (congestive heart failure): Acute on chronic diastolic heart failure Complaint to have a weight gain of about 17 pounds Started with intravenous Lasix Cardiology consulted-input appreciated Has been getting intravenous Lasix Creatinine is reduced to 1.4 today (3) Supratherapeutic INR: INR noted to be more than 10 No evidence of any active bleeding Received vitamin K and will hold the Coumadin We will hold Coumadin and/or anticoagulation until INR is therapeutic (4) COPD exacerbation: May have mild exacerbation of COPD Has been getting intravenous Solu-Medrol Chest clear to auscultate today We will change intravenous Solu-Medrol to oral prednisone (5) UTI (urinary tract infection): Has chronic indwelling Lloyd catheter History of recurrent UTI Has been getting Zosyn for possible infection Urine and blood cultures have been sent (6) Pulmonary embolism: Did not have any DVT during last admission Has been on Coumadin for pulmonary embolism We will hold Coumadin for now Monitor INR (7) Chronic pain disorder: Pain and under care of pain therapist Admitted with drowsiness possibly to overuse of narcotics Will not give any extra narcotics while in the hospital Will ask for pain therapy consult while in the hospital (8) Depression with anxiety: Continue current medication Has more anxiety and agitation in the hospital today Will try intravenous Ativan twice daily as needed (9) Morbid obesity: Ongoing issue Noncompliant with diet and physical therapy or exercise DVT prophylaxis On Coumadin-supratherapeutic INR CODE STATUS Full Has had a long discussion discussion with the patient in presence of the caring nurse We will get PT and OT evaluation from tomorrow Social service involvement-better if he goes to the skilled care facility from the hospital Subjective 06/11 The patient was seen and examined in telemetry unit He is a 48-year-old morbidly obese male with significant past medical history as mentioned in H&P with frequent hospital admissions was admitted last night with lethargy and drowsiness He was noted to have mild fluid overload with supratherapeutic INR and the drowsiness was suspected due to overuse of narcotics Complained to have shortness of breath at rest with normal saturation Note very anxious No more drowsiness and confusion Denies any chest pain and/or palpitation Review of Systems Review of Systems: All systems reviewed and are unremarkable except as noted below Constitutional: + weakness Respiratory: no cough and no dyspnea Cardiovascular: + edema (2+ bilateral); no chest pain and no orthopnea Musculoskeletal: + back pain Neurologic: Alert,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. Acute confusion resolved Physical Exam Physical Exam: Lying in bed comfortably but very anxious Constitutional: well developed, well nourished, + ill appearing and + morbidly obese; no acute distress Eyes: PERRL, conjunctivae normal, anicteric sclerae ENMT: external ear and nose normal, oropharynx normal Neck: trachea midline, no thyromegaly Respiratory: normal respiratory effort; no respiratory distress Auscultation: + diminished lung sounds, + crackles (Minimal crackles at the bases with minimal wheezing) and + wheezes Cardiovascular: Rate/Rhythm: regular rate and regular rhythm Heart Sounds: no murmur Gastrointestinal (Abdomen): Inspection/Auscultation: + abdomen distended and normal bowel sounds Percussion/Palpation: abdomen soft; abdomen nontender Musculoskeletal: No acute arthritis in any of the joints Results & Data Vital Signs (Past 12 Hours) Vital Signs Temp Pulse Pulse Resp BP Pulse Ox 06/11/19 12:04 36.8 C 89 20 165/82 H 96 06/11/19 07:40 78 06/11/19 07:23 36.4 C L 81 18 127/74 95 06/11/19 03:33 36.4 C L 78 18 139/72 96 Laboratory Results Short CBC 06/10/19 06/11/19 Range/Units 20:55 01:12 WBC 15.66 H 15.56 H (4.8-10.8) K/uL Hgb 10.3 L 10.9 L (14.0-18.0) g/dL Hct 32.9 L 34.6 L (42-52) % Plt Count 174 180 (130-400) K/uL BMP 06/10/19 06/11/19 20:55 01:12 Sodium 135 L 138 Potassium 4.2 4.1 Chloride 100 99 Carbon Dioxide 23 31 BUN 29 H 26 H Creatinine 1.70 H 1.40 D Glucose 240 H 199 H Calcium 8.6 8.7 Cardiac Enzymes 06/10/19 06/11/19 06/11/19 Range/Units 20:55 01:12 06:44 Troponin I < 0.015 < 0.015 < 0.015 (0-0.045) ng/ml 06/11/19 Range/Units 12:18 Troponin I < 0.015 (0-0.045) ng/ml Liver Function 06/10/19 Range/Units 20:55 Total Bilirubin 0.2 (0.2-1) mg/dl AST 13 L (15-37) U/L ALT 36 (12-78) U/L Alkaline Phosphatase 122 H (45-117) U/L Albumin 2.9 L (3.4-5.0) gm/dl Urine 06/11/19 Range/Units 00:35 Urine Color Yellow Urine Appearance Clear (Clear) Urine pH 5.5 (4.5-7.5) Ur Specific [place] 1.013 (1.000-1.030) Urine Protein Negative (Negative) Urine Glucose (UA) Negative (Negative) Medications Administered Current Inpatient Medications Acetaminophen (Tylenol) 650 mg PO Q4H PRN PRN Reason: Pain or Fever Stop: 07/11/19 00:25 Albuterol (Duoneb) 3 ml INH Q4H PRN PRN Reason: Shortness Of Breath Or Wheezing Stop: 07/11/19 00:25 Albuterol (Ventolin Hfa) 2 puffs INH Q4H PRN PRN Reason: Wheezing Stop: 07/11/19 00:25 Albuterol (Duoneb) 3 ml NEB TIDR [facility] Stop: 07/11/19 06:59 Last Admin: 06/11/19 13:28 Dose: Not Given Documented by: Aspirin (Ecotrin Ectab) 81 mg PO QAM [facility] Stop: 07/11/19 08:59 Last Admin: 06/11/19 08:55 Dose: 81 mg Documented by: Cyclobenzaprine HCl (Flexeril) 10 mg PO BID [facility] Stop: 07/11/19 08:59 Last Admin: 06/11/19 08:55 Dose: 10 mg Documented by: Docusate Sodium (Colace) 100 mg PO BID [facility] Stop: 07/11/19 08:59 Last Admin: 06/11/19 08:55 Dose: 100 mg Documented by: Duloxetine HCl (Cymbalta) 60 mg PO QAM [facility] Stop: 07/11/19 08:59 Last Admin: 06/11/19 08:55 Dose: 60 mg Documented by: Finasteride (Proscar) 5 mg PO QAM [facility] Stop: 07/11/19 08:59 Last Admin: 06/11/19 08:49 Dose: 5 mg Documented by: Fluticasone Propionate (Flonase) 2 sprays NA QAM [facility] Stop: 07/11/19 08:59 Last Admin: 06/11/19 08:45 Dose: 2 sprays Documented by: Gabapentin (Neurontin) 300 mg PO TID [facility] Stop: 07/11/19 08:59 Last Admin: 06/11/19 08:49 Dose: 300 mg Documented by: Furosemide 40 mg/ Syringe 4 mls @ 4 mls/min IV BID17 [facility] Stop: 07/11/19 08:59 Last Admin: 06/11/19 10:05 Dose: 4 mls/min Documented by: Methylprednisolone 40 mg/ (Syringe) 0.64 mls @ 1.5 mls/min IV TID [facility] Stop: 07/11/19 08:59 Last Admin: 06/11/19 13:08 Dose: 1.5 mls/min Documented by: Piperacillin Sod/Tazobactam (Sod 4.5 gm/ Dextrose) 120 mls @ 30 mls/hr IV Q8H [facility]; Protocol Stop: 06/21/19 05:59 Last Admin: 06/11/19 13:07 Dose: 30 mls/hr Documented by: Isosorbide Mononitrate (Imdur Extended Rel) 30 mg PO QAM [facility] Stop: 07/11/19 08:59 Last Admin: 06/11/19 08:55 Dose: 30 mg Documented by: Lactobacillus Acidophilus (Floranex) 4 tab PO DAILY [facility] Stop: 07/11/19 08:59 Last Admin: 06/11/19 08:51 Dose: 4 tab Documented by: Lidocaine (Lidoderm 5%) 1 patch TD QAM PRN PRN Reason: Pain Stop: 07/11/19 00:25 Last Admin: 06/11/19 08:54 Dose: 1 patch Documented by: Metoprolol Succinate (Toprol Xl) 50 mg PO BID [facility] Stop: 07/11/19 08:59 Last Admin: 06/11/19 08:55 Dose: 50 mg Documented by: Miscellaneous (Remove Lidoderm Patch) 1 ea N/A DAILY@2100 PRN PRN Reason: .PATCH Stop: 07/11/19 01:21 Miscellaneous Information (Consult) 1 ea N/A UD PRN PRN Reason: Consult Stop: 07/11/19 00:25 Morphine Sulfate (Ms Contin) 15 mg PO Q12 [facility] Stop: 06/25/19 00:44 Last Admin: 06/11/19 07:42 Dose: 15 mg Documented by: Nitroglycerin (Nitrostat) 0.4 mg SL UD PRN PRN Reason: Chest Pain Stop: 07/11/19 00:25 Nystatin (Mycostatin) 1 appln EXT BID PRN PRN Reason: Rash Stop: 07/11/19 00:25 Ondansetron HCl (Zofran) 4 mg IV Q6H PRN PRN Reason: Nausea Stop: 07/11/19 00:25 Oxycodone HCl (Roxicodone Immediate Rel) 15 mg PO Q4H PRN PRN Reason: Pain Stop: 06/25/19 00:44 Last Admin: 06/11/19 12:24 Dose: 15 mg Documented by: Pantoprazole Sodium (Protonix) 40 mg PO QAM [facility] Stop: 07/11/19 08:59 Last Admin: 06/11/19 08:48 Dose: 40 mg Documented by: Polyethylene Glycol (Miralax Powder Packet) 17 gm PO DAILY PRN PRN Reason: Constipation Stop: 07/11/19 00:25 Potassium Chloride (Klor-Con M10) 10 meq PO DAILY [facility] Stop: 07/11/19 08:59 Last Admin: 06/11/19 08:53 Dose: 10 meq Documented by: Sodium Biphosphate/Sodium Phosphate (Fleet Enema) 133 ml [place] PRN PRN PRN Reason: Constipation Stop: 07/11/19 00:25 Sodium Chloride ([place] Nasal) 1 sprays NA PRN PRN PRN Reason: Dry Nasal Passage Stop: 07/11/19 09:42 Tamsulosin HCl (Flomax) 0.4 mg PO DAILY [facility] Stop: 07/11/19 08:59 Last Admin: 06/11/19 08:55 Dose: 0.4 mg Documented by: Tiotropium [place] (Spiriva) 1 puffs INH DAILY [facility] Stop: 07/11/19 08:59 Last Admin: 06/11/19 08:47 Dose: 1 puffs Documented by: Tramadol HCl (Ultram) 50 mg PO Q4H PRN PRN Reason: Pain Stop: 07/11/19 00:36 Last Admin: 06/11/19 12:24 Dose: 50 mg Documented by: (1) UTI (urinary tract infection) Hematuria presence: with hematuria Urinary tract infection type: site unspecified Qualified Code(s): N39.0 - Urinary tract infection, site not specified; R31.9 - Hematuria, unspecified (2) CHF (congestive heart failure) Heart failure chronicity: acute Heart failure type: unspecified Qualified Code(s): I50.9 - Heart failure, unspecified (3) Pulmonary embolism Acute cor pulmonale presence: without acute cor pulmonale Chronicity: chronic Pulmonary embolism type: unspecified Qualified Code(s): I27.82 - Chronic pulmo nary embolism
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
[2019-06-11] MEDS: LORazepam 0.5 MG/1 ML VIAL IV PRN (17:16)
[2019-06-11] MEDS: INSULIN ASPART 100 UNITS/ML 3 ML PEN SC SCH ×2 (18:04→20:59)
[2019-06-12] MEDS: TRAMADOL HCL 50 MG TABLET PO PRN ×6 (01:38→22:18)
[2019-06-12] MEDS: OXYCODONE HCL IR 5 MG TAB (IMMEDIATE RELEASE) PO PRN ×6 (01:38→22:19)
[2019-06-12 05:50] LABS: Estimated Average Glucose 160 mg/dl; Hemoglobin A1C 7.2 % (4.5-5.6)
[2019-06-12] MEDS: PIPERACILLIN/TAZOBACTAM 4.5 GM in DEXTROSE 5% 100 ML IV SCH ×3 (05:54→22:19)
[2019-06-12 07:00] LABS: Prothrombin Time 53.5 Seconds (9.0-12.0)
[2019-06-12] MEDS: ALBUT/IPRATROP 3MG/0.5MG NEB 3 ML VIAL NEB SCH ×3 (07:09→19:12)
[2019-06-12 07:17] LABS: INR 5.9 (0.9-1.1)
[2019-06-12 07:21] LABS: BUN Creatinine Ratio 19.8 (10-20); Creatinine Clr Calc Pharmacy 122.2 ml/min; Est GFR (African American) 73.4; Est GFR (Non-African American) 63.3; Magnesium 2.5 mg/dl (1.8-2.4); Potassium 3.8 mmol/L (3.5-5.1)
[2019-06-12] MEDS: MoRPHine SULFATE CR 15 MG TABCR PO SCH ×2 (10:02→21:09)
[2019-06-12] MEDS: FUROSEMIDE 40 MG in SYRINGE 0 ML IV SCH ×2 (10:03→16:16)
[2019-06-12] MEDS: CYCLOBENZAPRINE HCL 10 MG TAB PO SCH ×2 (10:04→21:13)
[2019-06-12] MEDS: ASPIRIN 81 MG ECTAB PO SCH (10:04)
[2019-06-12] MEDS: methylPREDNISolone 40 MG in SYRINGE 0 ML IV SCH (10:04)
[2019-06-12] MEDS: POTASSIUM CHLORIDE 10 MEQ TABCR PO SCH (10:04)
[2019-06-12] MEDS: METOPROLOL SUCC 50MG EXT REL TAB PO SCH ×2 (10:04→21:13)
[2019-06-12] MEDS: FINASTERIDE 5 MG TAB PO SCH (10:04)
[2019-06-12] MEDS: DULOXETINE HCL 60 MG CAP PO SCH (10:05)
[2019-06-12] MEDS: PANTOprazole 40 MG TAB PO SCH (10:05)
[2019-06-12] MEDS: DOCUSATE SODIUM 100 MG CAP PO SCH ×2 (10:05→21:09)
[2019-06-12] MEDS: GABAPENTIN 300 MG CAP PO SCH ×3 (10:05→21:13)
[2019-06-12] MEDS: ISOSORBIDE MONO EXTENDED REL 30 MG TABCR PO SCH (10:05)
[2019-06-12] MEDS: LACTOBACILLUS ACIDOPHILUS (FLORANEX) TAB PO SCH (10:05)
[2019-06-12] MEDS: TAMSULOSIN HCL 0.4 MG CAP PO SCH (10:06)
[2019-06-12] MEDS: TIOTROPIUM BROMIDE 5 PUFF/90 MCG INH INH SCH (10:06)
[2019-06-12] MEDS: INSULIN ASPART 100 UNITS/ML 3 ML PEN SC SCH ×4 (10:07→21:14)
[2019-06-12] MEDS: FLUTICASONE PROPIONATE NA SPR 16 GM BTL SCH (10:07)
[2019-06-12] MEDS: LORazepam 0.5 MG/1 ML VIAL IV PRN ×2 (10:12→21:27)
--- NOTE | 2019-06-12 11:26 | Cardiology Progress Note ---
Date of Service June 12, 2019 Assessment & Plan (1) Supratherapeutic INR: INR down to 5.9. Hold Coumadin. Patient is on anticoagulation due to his history of embolism. (2) Fluid overload: Agree with IV furosemide 40 mg twice daily. 5.3 L of urine output noted in the in the last 24 hours, net balance -3.5 L. Looking back, patient has been found to have hyperkalemia with potassium of 5- 5.4 in the recent past, and therefore his spironolactone was discontinued. We will add low-dose potassium chloride 20 mEq daily and monitor at present. (3) Tachycardia: Patient had a 14 beat vern of supraventricular tachycardia at 7:12am on 06/11. Continue metoprolol. This perhaps explains pt's historical complaint of palpitations. Subjective Chief complaint: Follow-up lower extremity edema Subjective: Patient without cardiac complaint. Has ongoing chronic back pain which he had just discussed with Dr. Vasquez. Telemetry reveals sinus rhythm. No additional superventricular tachycardia since the brief episode yesterday morning. Review of Systems Review of Systems: All systems reviewed & are unremarkable except as noted in HPI & below Physical Exam Physical Exam: Temp Pulse Resp BP Pulse Ox 36.6 C 82 18 117/72 97 06/12/19 07:37 06/12/19 07:37 06/12/19 07:37 06/12/19 07:37 06/12/19 07:37 Constitutional: WD/WN, vitals as above Respiratory: normal respiratory effort, lungs clear to auscultation Cardiovascular: Extremities: + edema (1+ lower extremity edema) Distant heart sounds, regular, no murmur Neurologic: PERRL, EOMI, accommodation nl, no face palsy, no dysarthria Genitourinary: Lloyd catheter draining clear yellow urine Results & Data Vital Signs (Past 12 Hours) Vital Signs Temp Pulse Resp BP Pulse Ox Pulse Ox 06/12/19 07:37 36.6 C 82 18 117/72 97 06/12/19 07:10 80 16 96 06/12/19 03:36 36.5 C 78 16 119/67 97 06/12/19 01:22 94 06/11/19 23:38 36.5 C 80 16 103/64 94 (1) Fluid overload Hypervolemia type: unspecified Qualified Code(s): E87.70 - Fluid overload, unspecified
[2019-06-12] MEDS: POTASSIUM CHLORIDE 20 MEQ TABCR PO SCH (13:08)
[2019-06-12] MEDS: NICOTINE 21 MG/24 HR TDSY TD SCH (14:36)
[2019-06-12] MEDS ORDERED: HYDROmorphone INJ 1 MG/ML SYRINGE IV STA (15:32)
--- NOTE | 2019-06-12 17:59 | Hospitalist Progress Note ---
Date of Service June 12, 2019 Assessment & Plan (1) Metabolic encephalopathy: He presented to ER with lethargy and pleasantly confused Noted to have very drowsy as well Suspected overuse of narcotics pain medication Narcan was not given for short of indication Confusion completely resolved (2) CHF (congestive heart failure): Acute on chronic diastolic heart failure Complaint to have a weight gain of about 17 pounds Started with intravenous Lasix Cardiology consulted-input appreciated Has been getting intravenous Lasix Creatinine is reduced to 1.4 today We will continue current dose of furosemide lower dose of 40 mg intravenously twice daily Low-dose potassium chloride was added MAHAMED on CKD Creatinine was noted to be 1.70 on admission It has been improving as of today it is 1.32 and he has been getting Lasix intravenously while in the hospital We will monitor kidney function (3) Supratherapeutic INR: INR noted to be more than 10 No evidence of any active bleeding Received vitamin K and will hold the Coumadin We will hold Coumadin and/or anticoagulation until INR is therapeutic INR today is 5.9-we will continue to hold Coumadin (4) COPD exacerbation: May have mild exacerbation of COPD Has been getting intravenous Solu-Medrol Chest clear to auscultate today We will change intravenous Solu-Medrol to oral prednisone when appropriate (5) UTI (urinary tract infection): Has chronic indwelling Lloyd catheter History of recurrent UTI Has been getting Zosyn for possible infection Urine and blood cultures have been sent Blood cultures have been negative (6) Pulmonary embolism: Did not have any DVT during last admission Has been on Coumadin for pulmonary embolism We will hold Coumadin for now Monitor INR (7) Chronic pain disorder: Pain and under care of pain therapist Admitted with drowsiness possibly to overuse of narcotics He is mentally clear on 06/11 He has been dismissed from the pain clinic on the 12th of this month because of multiple issues but mainly noncompliant He has been complaining of increasing pain in the back Pain therapy consulted-await input and recommendation We will need to have a follow-up appointment with pain therapist following discharge (8) Depression with anxiety: Continue current medication Has more anxiety and agitation in the hospital today Will try intravenous Ativan twice daily as needed (9) Morbid obesity: Ongoing issue Noncompliant with diet and physical therapy or exercise DVT prophylaxis On Coumadin-supratherapeutic INR CODE STATUS Full Has had a long discussion discussion with the patient in presence of the caring nurse We will get PT and OT evaluation from tomorrow Social service involvement-better if he goes to the skilled care facility from the hospital Discussed with case management and service excellence department Will have a group meeting tomorrow at 9 AM for further management of care Subjective 06/11 The patient was seen and examined in telemetry unit He is a 48-year-old morbidly obese male with significant past medical history as mentioned in H&P with frequent hospital admissions was admitted last night with lethargy and drowsiness He was noted to have mild fluid overload with supratherapeutic INR and the drowsiness was suspected due to overuse of narcotics Complained to have shortness of breath at rest with normal saturation Note very anxious No more drowsiness and confusion Denies any chest pain and/or palpitation 06/12 The patient was seen and examined in telemetry unit He complains to have increasing back pain with radiation to the legs especially following physical therapy today He denies any chest pain and/or palpitation His wheezing seems to be improving Still complains to have pain in the right leg and also perineal area Review of Systems Review of Systems: All systems reviewed and are unremarkable except as noted below Constitutional: + fatigue and + weakness Respiratory: + cough and + wheezing (Minimal wheezing anteriorly) Cardiovascular: + edema (2+ bilateral); no chest pain and no orthopnea Gastrointestinal: no abdominal pain Genitourinary: + testicle pain; no dysuria Musculoskeletal: + back pain Neurologic: + generalized weakness Alert,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. Acute confusion resolved Physical Exam Physical Exam: Lying in bed with discomfort secondary to back pain Constitutional: well developed, well nourished, + ill appearing and + morbidly obese; no acute distress Eyes: PERRL, conjunctivae normal, anicteric sclerae ENMT: external ear and nose normal, oropharynx normal Neck: trachea midline, no thyromegaly Respiratory: normal respiratory effort; no respiratory distress Auscultation: + diminished lung sounds, + crackles (Minimal crackles at the bases with minimal wheezing) and + wheezes Cardiovascular: Rate/Rhythm: regular rate and regular rhythm Heart Sounds: no murmur Gastrointestinal (Abdomen): Inspection/Auscultation: + abdomen distended and normal bowel sounds Percussion/Palpation: abdomen soft; abdomen nontender Neurologic: moves all extremities; no focal motor deficits Lymphatic: no cervical or axillary lymphadenopathy Results & Data Vital Signs (Past 12 Hours) Vital Signs Temp Pulse Pulse Resp BP Pulse Ox Pulse Ox 06/12/19 15:41 85 06/12/19 15:32 36.6 C 92 H 24 126/75 93 06/12/19 14:48 97 06/12/19 13:33 84 18 96 06/12/19 11:43 36.8 C 84 18 137/77 98 06/12/19 11:35 80 06/12/19 07:37 36.6 C 82 18 117/72 97 06/12/19 07:10 80 16 96 Pulse Ox Pulse Ox 06/12/19 15:41 06/12/19 15:32 06/12/19 14:48 95 95 06/12/19 13:33 06/12/19 11:43 06/12/19 11:35 06/12/19 07:37 06/12/19 07:10 Laboratory Results BMP 06/12/19 06:00 Sodium 139 Potassium 3.8 Chloride 100 Carbon Dioxide 32 BUN 26 H Creatinine 1.32 Glucose 195 H Calcium 9.0 Medications Administered Current Inpatient Medications Acetaminophen (Tylenol) 650 mg PO Q4H PRN PRN Reason: Pain or Fever Stop: 07/11/19 00:25 Albuterol (Duoneb) 3 ml INH Q4H PRN PRN Reason: Shortness Of Breath Or Wheezing Stop: 07/11/19 00:25 Albuterol (Ventolin Hfa) 2 puffs INH Q4H PRN PRN Reason: Wheezing Stop: 07/11/19 00:25 Albuterol (Duoneb) 3 ml NEB TIDR [facility] Stop: 07/11/19 06:59 Last Admin: 06/12/19 13:32 Dose: 3 ml Documented by: Aspirin (Ecotrin Ectab) 81 mg PO QAM [facility] Stop: 07/11/19 08:59 Last Admin: 06/12/19 10:04 Dose: 81 mg Documented by: Cyclobenzaprine HCl (Flexeril) 10 mg PO BID [facility] Stop: 07/11/19 08:59 Last Admin: 06/12/19 10:04 Dose: 10 mg Documented by: Docusate Sodium (Colace) 100 mg PO BID [facility] Stop: 07/11/19 08:59 Last Admin: 06/12/19 10:05 Dose: 100 mg Documented by: Duloxetine HCl (Cymbalta) 60 mg PO QAM [facility] Stop: 07/11/19 08:59 Last Admin: 06/12/19 10:05 Dose: 60 mg Documented by: Finasteride (Proscar) 5 mg PO QAM [facility] Stop: 07/11/19 08:59 Last Admin: 06/12/19 10:04 Dose: 5 mg Documented by: Fluticasone Propionate (Flonase) 2 sprays NA QAM [facility] Stop: 07/11/19 08:59 Last Admin: 06/12/19 10:07 Dose: 2 sprays Documented by: Gabapentin (Neurontin) 300 mg PO TID [facility] Stop: 07/11/19 08:59 Last Admin: 06/12/19 14:37 Dose: 300 mg Documented by: Furosemide 40 mg/ Syringe 4 mls @ 4 mls/min IV BID17 [facility] Stop: 07/11/19 08:59 Last Admin: 06/12/19 16:16 Dose: 4 mls/min Documented by: Piperacillin Sod/Tazobactam (Sod 4.5 gm/ Dextrose) 120 mls @ 30 mls/hr IV Q8H [facility]; Protocol Stop: 06/21/19 05:59 Last Admin: 06/12/19 14:36 Dose: 30 mls/hr Documented by: Lorazepam (Ativan) 0.5 mg in 1 mls @ 1 mls/min IV Q12H PRN PRN Reason: Anxiety/Agitation Stop: 07/11/19 15:59 Last Admin: 06/12/19 10:12 Dose: 1 mls/min Documented by: Methylprednisolone 40 mg/ (Syringe) 0.64 mls @ 1.5 mls/min IV DAILY [facility] Stop: 07/12/19 08:59 Last Admin: 06/12/19 10:04 Dose: 1.5 mls/min Documented by: Promethazine HCl 25 mg/ Sodium (Chloride) 51 mls @ 204 mls/hr IV Q6H PRN PRN Reason: Nausea And Vomiting Stop: 07/12/19 16:47 Insulin Aspart (Novolog Flexpen) 0 units SC ACHS [facility] Stop: 07/11/19 17:29 Last Admin: 06/12/19 17:29 Dose: 11 units Documented by: Isosorbide Mononitrate (Imdur Extended Rel) 30 mg PO QAM [facility] Stop: 07/11/19 08:59 Last Admin: 06/12/19 10:05 Dose: 30 mg Documented by: Lactobacillus Acidophilus (Floranex) 4 tab PO DAILY [facility] Stop: 07/11/19 08:59 Last Admin: 06/12/19 10:05 Dose: 4 tab Documented by: Lidocaine (Lidoderm 5%) 1 patch TD QAM PRN PRN Reason: Pain Stop: 07/11/19 00:25 Last Admin: 06/11/19 08:54 Dose: 1 patch Documented by: Metoprolol Succinate (Toprol Xl) 50 mg PO BID [facility] Stop: 07/11/19 08:59 Last Admin: 06/12/19 10:04 Dose: 50 mg Documented by: Miscellaneous (Remove Lidoderm Patch) 1 ea N/A DAILY@2100 PRN PRN Reason: .PATCH Stop: 07/11/19 01:21 Miscellaneous (Remove Nicoderm Patch) 1 ea N/A HS [facility] Stop: 07/12/19 20:59 Miscellaneous Information (Consult) 1 ea N/A UD PRN PRN Reason: Consult Stop: 07/11/19 00:25 Morphine Sulfate (Ms Contin) 15 mg PO Q12 [facility] Stop: 06/25/19 00:44 Last Admin: 06/12/19 10:02 Dose: 15 mg Documented by: Nicotine (Nicoderm Cq) 21 mg TD QAM [facility] Stop: 07/12/19 12:44 Last Admin: 06/12/19 14:36 Dose: 21 mg Documented by: Nitroglycerin (Nitrostat) 0.4 mg SL UD PRN PRN Reason: Chest Pain Stop: 07/11/19 00:25 Nystatin (Mycostatin) 1 appln EXT BID PRN PRN Reason: Rash Stop: 07/11/19 00:25 Oxycodone HCl (Roxicodone Immediate Rel) 15 mg PO Q4H PRN PRN Reason: Pain Stop: 06/25/19 00:44 Last Admin: 06/12/19 13:55 Dose: 15 mg Documented by: Pantoprazole Sodium (Protonix) 40 mg PO QAM [facility] Stop: 07/11/19 08:59 Last Admin: 06/12/19 10:05 Dose: 40 mg Documented by: Polyethylene Glycol (Miralax Powder Packet) 17 gm PO DAILY PRN PRN Reason: Constipation Stop: 07/11/19 00:25 Potassium Chloride (Klor-Con M10) 10 meq PO DAILY [facility] Stop: 07/11/19 08:59 Last Admin: 06/12/19 10:04 Dose: 10 meq Documented by: Potassium Chloride (Klor-Con M20) 20 meq PO QAM [facility] Stop: 07/12/19 11:29 Last Admin: 06/12/19 13:08 Dose: 20 meq Documented by: Sodium Biphosphate/Sodium Phosphate (Fleet Enema) 133 ml AR PRN PRN PRN Reason: Constipation Stop: 07/11/19 00:25 Sodium Chloride (Scurry Nasal) 1 sprays NA PRN PRN PRN Reason: Dry Nasal Passage Stop: 07/11/19 09:42 Tamsulosin HCl (Flomax) 0.4 mg PO DAILY [facility] Stop: 07/11/19 08:59 Last Admin: 06/12/19 10:06 Dose: 0.4 mg Documented by: Tiotropium [place] (Spiriva) 1 puffs INH DAILY [facility] Stop: 07/11/19 08:59 Last Admin: 06/12/19 10:06 Dose: 1 puffs Documented by: Tramadol HCl (Ultram) 50 mg PO Q4H PRN PRN Reason: Pain Stop: 07/11/19 00:36 Last Admin: 06/12/19 13:55 Dose: 50 mg Documented by: (1) CHF (congestive heart failure) Heart failure chronicity: acute Heart failure type: unspecified Qualified Code(s): I50.9 - Heart failure, unspecified (2) UTI (urinary tract infection) Hematuria presence: with hematuria Urinary tract infection type: site unspecified Qualified Code(s): N39.0 - Urinary tract infection, site not specified; R31.9 - Hematuria, unspecified (3) Pulmonary embolism Pulmonary embolism type: unspecified Chronicity: chronic Acute cor pulmonale presence: without acute cor pulmonale Qualified Code(s): I27.82 - Chronic pulmonary embolism
[2019-06-12] MEDS: PROMETHAZINE HCL 25 MG in SODIUM CHLORIDE 0.9% 50 ML IV PRN (18:25)
[2019-06-12] MEDS: POLYETHYLENE (MIRALAX) 17 GM PACK PO PRN (21:09)
[2019-06-13] MEDS: TRAMADOL HCL 50 MG TABLET PO PRN ×4 (05:39→21:12)
[2019-06-13] MEDS: OXYCODONE HCL IR 5 MG TAB (IMMEDIATE RELEASE) PO PRN ×3 (05:39→18:37)
[2019-06-13] MEDS: PIPERACILLIN/TAZOBACTAM 4.5 GM in DEXTROSE 5% 100 ML IV SCH ×2 (05:40→17:02)
[2019-06-13 06:22] LABS: Basophils # (auto) 0.02 K/uL (0-0.2); Basophils % (auto) 0.2 %; Eosinophils # (auto) 0.11 K/uL (0-0.5); Eosinophils % (auto) 0.9 %; Hematocrit (blood only) 34.8 % (42-52); Hemoglobin 10.8 g/dL (14.0-18.0); Immature Granulocytes # (auto) 0.14 K/uL (0.00-0.02); Immature Granulocytes % (auto) 1.2 %; Lymphocytes # (auto) 3.25 K/uL (1.2-3.4); Lymphocytes % (auto) 26.9 %; Mean Corpuscular Hemoglobin 24.1 pg (25-34); Mean Corpuscular Volume 77.5 fL (80-100); Mean Platelet Volume 9.9 fL (7.4-10.4); Monocytes # (auto) 0.82 K/uL (0.11-0.59); Monocytes % (auto) 6.8 %; Neutrophils # (auto) 7.73 K/uL (1.4-6.5); Platelet Count 197 K/uL (130-400); RDW Coefficient of Variation 21.9 % (11.5-14.5); RDW Standard Deviation 62.3 fL (36.4-46.3); Red Blood Count 4.49 M/uL (4.7-6.1); White Blood Count 12.07 K/uL (4.8-10.8)
[2019-06-13 06:42] LABS: Prothrombin Time 52.9 Seconds (9.0-12.0)
[2019-06-13 06:48] LABS: INR 5.9 (0.9-1.1)
[2019-06-13 07:02] LABS: Creatinine Clr Calc Pharmacy 125.1 ml/min; Est GFR (African American) 75.5; Est GFR (Non-African American) 65.1; Magnesium 2.5 mg/dl (1.8-2.4); Potassium 3.6 mmol/L (3.5-5.1)
[2019-06-13 07:03] LABS: Anisocytosis Present; Hypochromasia Present
[2019-06-13] MEDS: ALBUT/IPRATROP 3MG/0.5MG NEB 3 ML VIAL NEB SCH ×3 (07:15→20:29)
[2019-06-13] MEDS: FUROSEMIDE 40 MG in SYRINGE 0 ML IV SCH ×2 (08:42→18:00)
[2019-06-13] MEDS: methylPREDNISolone 40 MG in SYRINGE 0 ML IV SCH (08:42)
[2019-06-13] MEDS: ISOSORBIDE MONO EXTENDED REL 30 MG TABCR PO SCH (08:42)
[2019-06-13] MEDS: LACTOBACILLUS ACIDOPHILUS (FLORANEX) TAB PO SCH (08:42)
[2019-06-13] MEDS: FINASTERIDE 5 MG TAB PO SCH (08:43)
[2019-06-13] MEDS: POTASSIUM CHLORIDE 10 MEQ TABCR PO SCH (08:43)
[2019-06-13] MEDS: GABAPENTIN 300 MG CAP PO SCH ×3 (08:43→21:08)
[2019-06-13] MEDS: ASPIRIN 81 MG ECTAB PO SCH (08:43)
[2019-06-13] MEDS: TAMSULOSIN HCL 0.4 MG CAP PO SCH (08:43)
[2019-06-13] MEDS: METOPROLOL SUCC 50MG EXT REL TAB PO SCH ×2 (08:43→21:09)
[2019-06-13] MEDS: CYCLOBENZAPRINE HCL 10 MG TAB PO SCH ×2 (08:43→21:08)
[2019-06-13] MEDS: DOCUSATE SODIUM 100 MG CAP PO SCH ×2 (08:43→21:07)
[2019-06-13] MEDS: DULOXETINE HCL 60 MG CAP PO SCH (08:43)
[2019-06-13] MEDS: FLUTICASONE PROPIONATE NA SPR 16 GM BTL SCH (08:44)
[2019-06-13] MEDS: NICOTINE 21 MG/24 HR TDSY TD SCH (08:44)
[2019-06-13] MEDS: MoRPHine SULFATE CR 15 MG TABCR PO SCH ×2 (08:44→21:07)
[2019-06-13] MEDS: POTASSIUM CHLORIDE 20 MEQ TABCR PO SCH (08:44)
[2019-06-13] MEDS: PANTOprazole 40 MG TAB PO SCH (08:45)
[2019-06-13] MEDS: TIOTROPIUM BROMIDE 5 PUFF/90 MCG INH INH SCH (08:45)
[2019-06-13] MEDS: INSULIN ASPART 100 UNITS/ML 3 ML PEN SC SCH ×4 (08:48→21:10)
[2019-06-13] MEDS ORDERED: LOPERAMIDE HCL 2 MG CAP PO PRN (10:18)
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
[2019-06-13] MEDS: LORazepam 0.5 MG/1 ML VIAL IV PRN (13:51)
[2019-06-13] MEDS: cloNIDine HCL 0.1 MG/24 HR TRANSDERM SYS TD SCH (13:51)
--- NOTE | 2019-06-13 16:04 | Cardiology Progress Note ---
Date of Service June 13, 2019 Assessment & Plan (1) Supratherapeutic INR: INR still 5.9, continue to hold Coumadin. (2) Fluid overload: Continue IV furosemide 40 mg IV twice daily. Place potassium orally. Recommend narrowing antibiotic coverage deemed reasonable by the primary service. Subjective Chief complaint: Follow-up lower extremity swelling Subjective: Patient continues to diurese well. 6.3 L of urine output noted yesterday at 3.1 L of urine output noted thus far today, he net fluid balance is -2.5 L today. Review of Systems Review of Systems: All systems reviewed & are unremarkable except as noted in HPI & below Patient complains of back pain, stable at present Physical Exam Physical Exam: Temp Pulse Resp BP Pulse Ox 36.7 C 98 H 96 H 128/75 96 06/13/19 11:33 06/13/19 11:33 06/13/19 11:33 06/13/19 11:33 06/13/19 11:33 Constitutional: WD/WN, vitals as above Cardiovascular: Distant heart sounds, regular rhythm 1+ lower extremity edema, improving Skin: Bilateral pretibial ulcerations, stable Neurologic: PERRL, EOMI, accommodation nl, no face palsy, no dysarthria Results & Data Vital Signs (Past 12 Hours) Vital Signs Temp Pulse Resp BP Pulse Ox 06/13/19 11:33 36.7 C 98 H 96 H 128/75 96 06/13/19 07:47 36.4 C L 76 20 134/79 100 06/13/19 07:17 78 18 96 Laboratory Results INR 5.9 Sodium 139, potassium 3.6, CO2 36, BUN 34, creatinine 1.29 (1) Fluid overload Hypervolemia type: unspecified Qualified Code(s): E87.70 - Fluid overload, unspecified
[2019-06-13] MEDS ORDERED: POTASSIUM CHLORIDE 20 MEQ TABCR PO STA (16:13)
[2019-06-13] MEDS: CHECK CLONIDINE PATCH PLACEMENT SCH (16:42)
--- NOTE | 2019-06-13 17:04 | Hospitalist Progress Note ---
Date of Service June 13, 2019 Assessment & Plan (1) Chronic pain disorder: Pain and under care of pain therapist Admitted with drowsiness and recovered in no time Suspected overdose with narcotics have been ruled out He has been mentally clear since admission He has been dismissed from the pain clinic on the of this month because of multiple issues but mainly noncompliant Continues to complain about pain and asking for more pain medications -Appreciate pain management input and recommendation of weaning of narcotics and the plan -Recommendation was due to management of noncancerous pain -He was advised to find out a outpatient pain therapist to take care of his chronic pain if he still needs pain control Chronic back pain with possible radiculopathy Will ask spine surgery for further evaluation Discussed with Dr. Sauceda we will see him tomorrow Chronic pain right foot Was seen by Dr. Gilmore in the past As metacarpal fracture of the left foot Discussed with orthopedic surgeons for an input and care of his foot Noted to have a few blast cells and peripheral blood smear Nothing to suggest any specific disease at this time Will repeat peripheral blood smear on as advised by the pathologist May need to have a hematology consult down the line Multidisciplinary meeting with service excellence, dietary department, psychiatrist, case management, pain management, physical therapist this morning The plan of care will be provided for the improvement of his current condition (2) Metabolic encephalopathy: He presented to ER with lethargy and pleasantly confused Noted to have very drowsy as well Suspected overuse of narcotics pain medication has been ruled out after taking detailed history from the patient and his fiance Narcan was not given for short of indication Confusion completely resolved (3) CHF (congestive heart failure): Acute on chronic diastolic heart failure Complaint to have a weight gain of about 17 pounds Started with intravenous Lasix Cardiology consulted-input appreciated Has been getting intravenous Lasix Creatinine is reduced to 1.4 today We will continue current dose of furosemide lower dose of 40 mg intravenously twice daily Low-dose potassium chloride was added Has been diuresing enough We will continue intravenous furosemide for now MAHAMED on CKD Creatinine was noted to be 1.70 on admission It has been improving as of today it is 1.32 and he has been getting Lasix intravenously while in the hospital We will monitor kidney function-has been stable (4) Supratherapeutic INR: INR noted to be more than 10 No evidence of any active bleeding Received vitamin K and will hold the Coumadin We will hold Coumadin and/or anticoagulation until INR is therapeutic INR today is 5.9-we will continue to hold Coumadin INR is still remains elevated-we will continue to hold Coumadin (5) COPD exacerbation: May have mild exacerbation of COPD Has been getting intravenous Solu-Medrol Chest clear to auscultate today We will change intravenous Solu-Medrol to oral prednisone when appropriate Will start prednisone 40 mg orally from tomorrow (6) UTI (urinary tract infection): Has chronic indwelling Lloyd catheter History of recurrent UTI Has been getting Zosyn for possible infection Urine culture was not sent as UA was not suggestive of infection Blood cultures have been negative We will discontinue intravenous Zosyn (7) Pulmonary embolism: Did not have any DVT during last admission Has been on Coumadin for pulmonary embolism We will hold Coumadin for now Monitor INR (8) Depression with anxiety: Continue current medication Has more anxiety and agitation in the hospital today Will try intravenous Ativan twice daily as needed (9) Morbid obesity: Ongoing issue Noncompliant with diet and physical therapy or exercise DVT prophylaxis On Coumadin-supratherapeutic INR CODE STATUS Full Has had a long discussion discussion with the patient in presence of the caring nurse We will get PT and OT evaluation from tomorrow Social service involvement-better if he goes to the skilled care facility from the hospital Discussed with case management and service excellence department Will have a group meeting tomorrow at 9 AM for further management of care-as above Subjective 06/11 The patient was seen and examined in telemetry unit He is a 48-year-old morbidly obese male with significant past medical history as mentioned in H&P with frequent hospital admissions was admitted last night with lethargy and drowsiness He was noted to have mild fluid overload with supratherapeutic INR and the drowsiness was suspected due to overuse of narcotics Complained to have shortness of breath at rest with normal saturation Note very anxious No more drowsiness and confusion Denies any chest pain and/or palpitation 06/12 The patient was seen and examined in telemetry unit He complains to have increasing back pain with radiation to the legs especially following physical therapy today He denies any chest pain and/or palpitation His wheezing seems to be improving Still complains to have pain in the right leg and also perineal area 06/13 The patient was seen and examined today in telemetry unit initially with the pain therapist and later on with the caring nurse He was seen initially with the pain therapist and also his significant other He still complains to have some shortness of breath and wheezing and his back pain and leg pain has been bothering him all the time Denies any shortness of breath in the palpitation Review of Systems Review of Systems: All systems reviewed and are unremarkable except as noted below Constitutional: + fatigue and + weakness Respiratory: + cough and + wheezing (Minimal wheezing anteriorly) Cardiovascular: + edema (2+ bilateral-has been improving); no chest pain and no orthopnea Gastrointestinal: no abdominal pain, no bloating, no nausea and no vomiting Genitourinary: + testicle pain; no dysuria Musculoskeletal: + back pain Neurologic: + generalized weakness Alert,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. Acute confusion resolved Physical Exam Physical Exam: Lying in bed comfortably Constitutional: well developed, well nourished, + ill appearing and + morbidly obese; no acute distress Eyes: PERRL, conjunctivae normal, anicteric sclerae ENMT: external ear and nose normal, oropharynx normal Neck: trachea midline, no thyromegaly Respiratory: normal respiratory effort; no respiratory distress Auscultation: + diminished lung sounds and + wheezes (Minimal); no crackles Cardiovascular: Rate/Rhythm: regular rate and regular rhythm Heart Sounds: no murmur Gastrointestinal (Abdomen): Inspection/Auscultation: + abdomen distended and normal bowel sounds Percussion/Palpation: abdomen soft; abdomen nontender and no guarding Neurologic: moves all extremities; no focal motor deficits Lymphatic: no cervical or axillary lymphadenopathy Results & Data Vital Signs (Past 12 Hours) Vital Signs Temp Pulse Resp BP Pulse Ox 06/13/19 16:00 36.8 C 79 19 111/69 95 06/13/19 11:33 36.7 C 98 H 96 H 128/75 96 06/13/19 07:47 36.4 C L 76 20 134/79 100 06/13/19 07:17 78 18 96 (1) CHF (congestive heart failure) Heart failure chronicity: acute Heart failure type: unspecified Qualified Code(s): I50.9 - Heart failure, unspecified (2) UTI (urinary tract infection) Hematuria presence: with hematuria Urinary tract infection type: site unspecified Qualified Code(s): N39.0 - Urinary tract infection, site not specified; R31.9 - Hematuria, unspecified (3) Pulmonary embolism Pulmonary embolism type: unspecified Chronicity: chronic Acute cor pulmonale presence: without acute cor pulmonale Qualified Code(s): I27.82 - Chronic pulmonary embolism
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
[2019-06-13] MEDS ORDERED: LORazepam 1 MG/2 ML VIAL IV STA (18:13)
--- NOTE | 2019-06-13 19:57 | XRay Report ---
XR foot RT min 3V routine HISTORY: 48 years-old Male 3rd MT nonunion follow-up study in a patient with remote fracture of the third metatarsal COMPARISON: Right foot radiographs 09/16/2018 TECHNIQUE: 3 views of the right foot FINDINGS: Moderate diffuse soft tissue prominence of the foot and ankle. Remote fracture deformity about the mi d diaphyseal aspect of the third metatarsal without significant interval bony bridging. Adjacent meta llic fragments within the adjacent soft tissues are unchanged. Resultant foreshortening of the third metatarsal redemonstrated. No acute fracture or dislocation. Mild degenerative changes of the midfoot and hindfoot. IMPRESSION: No significant bony healing of the chronic-appearing third metatarsal fracture. The above report was generated using voice recognition software. It may contain grammatical, syntax o r spelling errors. Electronically signed by: Kem Apodaca M.D. 06/13/2019 7:56 PM
[2019-06-14] MEDS: cloNIDine HCL 0.1 MG/24 HR TRANSDERM SYS TD SCH (00:08)
[2019-06-14] MEDS: CHECK CLONIDINE PATCH PLACEMENT SCH ×3 (00:08→16:04)
[2019-06-14] MEDS: TRAMADOL HCL 50 MG TABLET PO PRN ×5 (01:30→18:43)
[2019-06-14] MEDS: OXYCODONE HCL IR 5 MG TAB (IMMEDIATE RELEASE) PO PRN ×4 (01:30→20:10)
[2019-06-14] MEDS: LORazepam 0.5 MG/1 ML VIAL IV PRN ×2 (01:37→13:57)
[2019-06-14 05:53] LABS: Basophils # (auto) 0.02 K/uL (0-0.2); Basophils % (auto) 0.1 %; Eosinophils % (auto) 1.5 %; Hematocrit (blood only) 34.7 % (42-52); Hemoglobin 10.8 g/dL (14.0-18.0); Immature Granulocytes # (auto) 0.29 K/uL (0.00-0.02); Immature Granulocytes % (auto) 2.1 %; Lymphocytes # (auto) 3.34 K/uL (1.2-3.4); Lymphocytes % (auto) 24.6 %; Mean Corpuscular Hemoglobin 24.2 pg (25-34); Mean Corpuscular Hgb Conc 31.1 g/dL (32-36); Mean Corpuscular Volume 77.8 fL (80-100); Mean Platelet Volume 9.5 fL (7.4-10.4); Monocytes # (auto) 1.07 K/uL (0.11-0.59); Monocytes % (auto) 7.9 %; Neutrophils # (auto) 8.66 K/uL (1.4-6.5); Neutrophils % (auto) 63.8 %; Platelet Count 210 K/uL (130-400); RDW Coefficient of Variation 21.7 % (11.5-14.5); RDW Standard Deviation 61.9 fL (36.4-46.3); Red Blood Count 4.46 M/uL (4.7-6.1); White Blood Count 13.58 K/uL (4.8-10.8)
[2019-06-14 06:04] LABS: INR 3.2 (0.9-1.1); Prothrombin Time 30.3 Seconds (9.0-12.0)
[2019-06-14 06:21] LABS: Anisocytosis Present; Hypochromasia Present; Ovalocytes 1+
[2019-06-14 06:24] LABS: BUN Creatinine Ratio 25.6 (10-20); Calcium 8.7 mg/dl (8.5-10.1); Creatinine Clr Calc Pharmacy 114.4 ml/min; Est GFR (African American) 67.8; Est GFR (Non-African American) 58.5; Potassium 3.5 mmol/L (3.5-5.1)
[2019-06-14] MEDS: ALBUT/IPRATROP 3MG/0.5MG NEB 3 ML VIAL NEB SCH ×3 (07:17→19:18)
[2019-06-14] MEDS: CYCLOBENZAPRINE HCL 10 MG TAB PO SCH ×2 (08:50→20:04)
[2019-06-14] MEDS: POTASSIUM CHLORIDE 20 MEQ TABCR PO SCH ×3 (08:50→20:05)
[2019-06-14] MEDS: TAMSULOSIN HCL 0.4 MG CAP PO SCH (08:50)
[2019-06-14] MEDS: GABAPENTIN 300 MG CAP PO SCH ×3 (08:50→20:06)
[2019-06-14] MEDS: FINASTERIDE 5 MG TAB PO SCH (08:51)
[2019-06-14] MEDS: DULOXETINE HCL 60 MG CAP PO SCH (08:51)
[2019-06-14] MEDS: DOCUSATE SODIUM 100 MG CAP PO SCH ×2 (08:51→20:04)
[2019-06-14] MEDS: FLUTICASONE PROPIONATE NA SPR 16 GM BTL SCH (08:51)
[2019-06-14] MEDS: ASPIRIN 81 MG ECTAB PO SCH (08:51)
[2019-06-14] MEDS: PANTOprazole 40 MG TAB PO SCH (08:52)
[2019-06-14] MEDS: LACTOBACILLUS ACIDOPHILUS (FLORANEX) TAB PO SCH (08:52)
[2019-06-14] MEDS: ISOSORBIDE MONO EXTENDED REL 30 MG TABCR PO SCH (08:52)
[2019-06-14] MEDS: METOPROLOL SUCC 50MG EXT REL TAB PO SCH ×2 (08:52→20:06)
[2019-06-14] MEDS: TIOTROPIUM BROMIDE 5 PUFF/90 MCG INH INH SCH (08:53)
[2019-06-14] MEDS: NICOTINE 21 MG/24 HR TDSY TD SCH (08:54)
[2019-06-14] MEDS: FUROSEMIDE 40 MG in SYRINGE 0 ML IV SCH ×2 (08:54→17:23)
[2019-06-14] MEDS: MoRPHine SULFATE CR 15 MG TABCR PO SCH ×2 (08:59→21:10)
[2019-06-14] MEDS: POLYETHYLENE (MIRALAX) 17 GM PACK PO PRN (09:26)
[2019-06-14] MEDS: predniSONE 20 MG TAB PO SCH (10:28)
[2019-06-14] MEDS: INSULIN ASPART 100 UNITS/ML 3 ML PEN SC SCH ×4 (10:48→21:15)
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
[2019-06-14] MEDS ORDERED: LIDOCAINE 4% CREAM 15 GM TUBE EXT PRN (18:19)
[2019-06-14] MEDS: WARFARIN SOD 5 MG TAB PO SCH (18:43)
--- NOTE | 2019-06-14 18:54 | Hospitalist Progress Note ---
Date of Service June 14, 2019 Assessment & Plan (1) Metabolic encephalopathy: He presented to ER with lethargy and pleasantly confused Noted to have very drowsy and lethargy on admission CT head showed no acute intracranial finding Suspected overuse of narcotics pain medication has been ruled out after taking detailed history from the patient and his fiance Narcan was not given Resolved (2) Chronic pain disorder: He was crying today because he wanted IV pain med Pain management starting to wean him off from the narcotic due to suspected overdose with narcotics He has been dismissed from the pain clinic on the of this month because of multiple issues but mainly noncompliant Continues to complain about pain and asking for more pain medications Recommendation was due to management of noncancerous pain He was advised to find out a outpatient pain therapist to take care of his chronic pain if he still needs pain control Ortho was consulted no surgical intervention at this time His body habitus and medical history makes him extreme risk for any surgical intervention let alone any reasonable outcome as per ortho Recommended weight loss evaluation Chronic right foot pain Xray showed no significant bony healing of the chronic-appearing third metatarsal fracture. Ortho on board Surgery not indicated in the acute inpatient setting as per ortho Ortho recommended weight-bear as tolerates and postop shoe. Follow up with ortho as an outpatient to discuss outpatient surgery (3) CHF (congestive heart failure): Acute on chronic diastolic heart failure Complaint to have a weight gain of about 17 pounds cardio on board Intravenous Lasix changed to demadex today by cardio Creatinine is reduced to 1.4 today Continue fluid restriction at 1.8L daily MAHAMED on CKD Creatinine was noted to be 1.70 on admission Creatinine 1.4 today l Monitor BMP while on diuretic Avoid nephrotoxic agents (4) Supratherapeutic INR: INR noted to be more than 10 No evidence of any active bleeding Received vitamin K on admission INR 3.2 today, resume coumadin today Monitor PT/INR (5) COPD exacerbation: May have mild exacerbation of COPD Has been getting intravenous Solu-Medrol Chest clear to auscultate today Intravenous Solu-Medrol changed to oral prednisone (6) UTI (urinary tract infection): Has chronic indwelling Lloyd catheter History of recurrent UTI Has been getting Zosyn for possible infection Urine culture was not sent as UA was not suggestive of infection Blood cultures have been negative Zosyn discontinued (7) Pulmonary embolism: Did not have any DVT during last admission Has been on Coumadin for pulmonary embolism Coumadin resumed today Monitor PT/INR in am (8) Depression with anxiety: has been very anxious and agitated since he is getting wean from the narcotic Will change ativan to oral Refused to psych for now Denies any suicidal thought (9) Morbid obesity: Noncompliant with diet Counseling on weight lost Noted to have a few blast cells and peripheral blood smear Nothing to suggest any specific disease at this time Will repeat peripheral blood smear on as advised by the pathologist May need to have a hematology consult down the line DVT prophylaxis Resume Coumadin, INR 3.2 CODE STATUS FULL CODE Disposition Multidisciplinary meeting with service excellence, dietary department, psychiatrist, case management, pain management, physical therapist to help with his plan of care for the improvement of his current condition Subjective Pt was seen and examined Sitting in chair with no distress crying because he is in pain Pt was crying because he is not getting IV pain medication He is asking for a shot of IV pain medication He said that his chest pain is coming from his back pain due to the pinch nerve He said that he is not getting good care because he is not treated properly for his pain I explained to him that pain management recommendation is to wean him off from the narcotic I told him that he is getting oral narcotic and i will not add any IV narcotic if the plan is to wean him off He said that in that case he wants to transfer to another hospital I told him that i will need a reason for the transfer He said that I can tell the accepting physician that he is not getting adequate pain med and staff is not treating him right I told him that the way transfer work is that if we cannot provide care in this hospital, so that we transfer the patient to get that procedure or service at the other hospital I told him that we are managing his pain and i am going to add lidocaine to help with the pain in combination with the oral narcotic Then he is starting to complaining that he is not getting enough food He wants his fluid intake to increase to 2000ml instead of 1800ml He said that at home he does 2000ml of fluid I told him that maybe the 2L fluid restriction does not work for him because he has been in the hospital multiple times for fluid overload He said that he is not having chest pain and wants to eat because his food is getting cold now I asked the nurse to warm the food for him I offer him to speak to psych because he said that his depressed because of the pain I told him that he is going to be a challenge since he was discharged from the pain clinic He refused to speak to psych Physical Exam Physical Exam: General- No acute distress, obesity Head- atraumatic Eyes- PERRL, EOMI, ENT- oropharynx clear Neck- supple, no JVD Lungs- clear to auscultation Heart- regular rhythm; no murmur Abdomen- normal bowel sounds, soft, nontender Extremities- no calf tenderness Neuro- alert, oriented x 3; PERRL, EOMI; no facial palsy; no dysarthria Skin- warm & dry Results & Data Vital Signs (Past 12 Hours) Vital Signs Temp Pulse Pulse Resp BP Pulse Ox 06/14/19 16:00 92 H 06/14/19 13:04 85 18 94 06/14/19 11:59 36.8 C 90 18 138/76 97 06/14/19 08:00 81 06/14/19 07:44 36.5 C 79 18 125/78 95 (1) UTI (urinary tract infection) Hematuria presence: with hematuria Urinary tract infection type: site unspecified Qualified Code(s): N39.0 - Urinary tract infection, site not specified; R31.9 - Hematuria, unspecified (2) CHF (congestive heart failure) Heart failure chronicity: acute Heart failure type: unspecified Qualified Code(s): I50.9 - Heart failure, unspecified (3) Pulmonary embolism Acute cor pulmonale presence: without acute cor pulmonale Chronicity: chronic Pulmonary embolism type: unspecified Qualified Code(s): I27.82 - Chronic pulmonary embolism
[2019-06-15] MEDS: TRAMADOL HCL 50 MG TABLET PO PRN ×6 (00:08→20:34)
[2019-06-15] MEDS: CHECK CLONIDINE PATCH PLACEMENT SCH ×3 (00:22→16:24)
[2019-06-15] MEDS: LORazepam 0.5 MG TAB PO PRN ×2 (02:10→14:50)
[2019-06-15] MEDS: OXYCODONE HCL IR 5 MG TAB (IMMEDIATE RELEASE) PO PRN ×3 (02:10→16:19)
[2019-06-15 06:43] LABS: INR 2.1 (0.9-1.1); Prothrombin Time 20.2 Seconds (9.0-12.0)
[2019-06-15 06:54] LABS: BUN Creatinine Ratio 29.6 (10-20); Creatinine Clr Calc Pharmacy 148.2 ml/min; Est GFR (African American) 92.5; Est GFR (Non-African American) 79.8; Potassium 3.9 mmol/L (3.5-5.1)
[2019-06-15] MEDS: ALBUT/IPRATROP 3MG/0.5MG NEB 3 ML VIAL NEB SCH ×3 (07:26→20:01)
[2019-06-15] MEDS: INSULIN ASPART 100 UNITS/ML 3 ML PEN SC SCH ×4 (07:59→21:39)
[2019-06-15] MEDS: DOCUSATE SODIUM 100 MG CAP PO SCH ×2 (08:02→20:34)
[2019-06-15] MEDS: DULOXETINE HCL 60 MG CAP PO SCH (08:02)
[2019-06-15] MEDS: predniSONE 20 MG TAB PO SCH (08:03)
[2019-06-15] MEDS: GABAPENTIN 300 MG CAP PO SCH ×3 (08:03→20:33)
[2019-06-15] MEDS: POTASSIUM CHLORIDE 20 MEQ TABCR PO SCH ×2 (08:03→20:34)
[2019-06-15] MEDS: TAMSULOSIN HCL 0.4 MG CAP PO SCH (08:04)
[2019-06-15] MEDS: PANTOprazole 40 MG TAB PO SCH (08:04)
[2019-06-15] MEDS: METOPROLOL SUCC 50MG EXT REL TAB PO SCH ×2 (08:04→20:35)
[2019-06-15] MEDS: ISOSORBIDE MONO EXTENDED REL 30 MG TABCR PO SCH (08:05)
[2019-06-15] MEDS: LACTOBACILLUS ACIDOPHILUS (FLORANEX) TAB PO SCH (08:05)
[2019-06-15] MEDS: CYCLOBENZAPRINE HCL 10 MG TAB PO SCH ×2 (08:06→20:33)
[2019-06-15] MEDS: ASPIRIN 81 MG ECTAB PO SCH (08:06)
[2019-06-15] MEDS: FLUTICASONE PROPIONATE NA SPR 16 GM BTL SCH (08:06)
[2019-06-15] MEDS: NICOTINE 21 MG/24 HR TDSY TD SCH (08:07)
[2019-06-15] MEDS: FINASTERIDE 5 MG TAB PO SCH (08:07)
[2019-06-15] MEDS: TORSEMIDE 10 MG TAB PO SCH (08:07)
[2019-06-15] MEDS: POLYETHYLENE (MIRALAX) 17 GM PACK PO PRN (08:24)
[2019-06-15] MEDS: MoRPHine SULFATE CR 15 MG TABCR PO SCH ×2 (08:24→20:35)
[2019-06-15] MEDS: TIOTROPIUM BROMIDE 5 PUFF/90 MCG INH INH SCH (09:36)
[2019-06-15] MEDS: WARFARIN SOD 5 MG TAB PO SCH (16:22)
--- NOTE | 2019-06-15 18:27 | Cardiology Progress Note ---
Date of Service June 15, 2019 Assessment & Plan (1) Supratherapeutic INR: INR down to 2, resume Coumadin (2) Fluid overload: Continue torsemide 20 mg p.o. daily in a.m., potassium chloride 20 mEq twice daily. Subjective Chief complaint: Follow-up lower extremity edema Subjective: Patient leg edema stable, transitioned to oral torsemide today. Still with significant favorable urine output. Review of Systems Review of Systems: All systems reviewed & are unremarkable except as noted in HPI & below Chronic back pain, chronic foot pain Physical Exam Physical Exam: Temp Pulse Resp BP Pulse Ox 37.0 C 88 22 113/75 93 06/15/19 16:00 06/15/19 16:00 06/15/19 16:00 06/15/19 16:00 06/15/19 16:00 Respiratory: normal respiratory effort, lungs clear to auscultation Cardiovascular: Distant heart sounds, regular rhythm Trace lower extremity edema, chronic venous stasis change Genitourinary: Clear yellow urine draining from chronic Lloyd catheter Results & Data Vital Signs (Past 12 Hours) Vital Signs Temp Pulse Pulse Resp BP Pulse Ox 06/15/19 16:00 37.0 C 88 22 113/75 93 06/15/19 15:00 86 06/15/19 11:48 36.9 C 80 18 103/66 95 06/15/19 08:00 68 06/15/19 07:53 36.9 C 81 18 112/77 96 (1) Fluid overload Hypervolemia type: unspecified Qualified Code(s): E87.70 - Fluid overload, unspecified
--- NOTE | 2019-06-15 19:33 | Hospitalist Progress Note ---
Date of Service June 15, 2019 Assessment & Plan (1) Metabolic encephalopathy: He presented to ER with lethargy and pleasantly confused Noted to have very drowsy and lethargy on admission CT head showed no acute intracranial finding Suspected overuse of narcotics pain medication has been ruled out after taking detailed history from the patient and his fiance Narcan was not given Resolved (2) Chronic pain disorder: He was crying today because he wanted IV pain med Pain management starting to wean him off from the narcotic due to suspected overdose with narcotics He has been dismissed from the pain clinic on the of this month because of multiple issues but mainly noncompliant Continues to complain about pain and asking for more pain medications Recommendation was due to management of noncancerous pain He was advised to find out a outpatient pain therapist to take care of his chronic pain if he still needs pain control Ortho was consulted no surgical intervention at this time His body habitus and medical history makes him extreme risk for any surgical intervention let alone any reasonable outcome as per ortho Recommended weight loss evaluation case discussed with PCP and pain management, they are not comfortable to give him any narcotic due to safety issues He has been discharge from multiple pain clinics He is planning to try the marijuana clinic Chronic right foot pain Xray showed no significant bony healing of the chronic-appearing third metatarsal fracture. Ortho on board Surgery not indicated in the acute inpatient setting as per ortho Ortho recommended weight-bear as tolerates and postop shoe. Follow up with ortho as an outpatient to discuss outpatient surgery (3) CHF (congestive heart failure): Acute on chronic diastolic heart failure Complaint to have a weight gain of about 17 pounds cardio on board Intravenous Lasix changed to demadex today by cardio Creatinine is reduced to 1.4 today Continue fluid restriction at 1.8L daily Continue Torsemide 20mg daily MAHAMED on CKD Creatinine was noted to be 1.70 on admission Creatinine 1.09 today Monitor BMP while on diuretic Avoid nephrotoxic agents (4) Supratherapeutic INR: INR noted to be more than 10 No evidence of any active bleeding Received vitamin K on admission INR 2.1 today continue coumadin follow up with the coag clinic Monitor PT/INR (5) COPD exacerbation: May have mild exacerbation of COPD Has been getting intravenous Solu-Medrol Intravenous Solu-Medrol changed to oral prednisone Continue prednisone 40mg Clinically stable (6) UTI (urinary tract infection): Has chronic indwelling Lloyd catheter History of recurrent UTI Has been getting Zosyn for possible infection Urine culture was not sent as UA was not suggestive of infection Blood cultures have been negative Zosyn discontinued (7) Pulmonary embolism: Did not have any DVT during last admission Has been on Coumadin for pulmonary embolism Coumadin resumed today Monitor PT/INR in am (8) Depression with anxiety: has been very anxious and agitated since he is getting wean from the narcotic Will change ativan to oral Refused to psych for now Denies any suicidal thought (9) Morbid obesity: Noncompliant with diet Counseling on weight lost Noted to have a few blast cells and peripheral blood smear Blood smear showed no blast or schistocytes noted Stable DVT prophylaxis Resume Coumadin, INR 2.1 CODE STATUS FULL CODE Disposition Multidisciplinary meeting with service excellence, dietary department, psyc hiatrist, case management, pain management, physical therapist to help with his plan of care for the improvement of his current condition Follow up with PCP Dr. Hogan on 06/19 @ 12:55 PM Subjective Pt was seen and examined Lying in bed with no distress Pt continue to ask for IV narcotic and IV Ativan while he is in the hospital he said that he does not have any pain med to take at home when discharge to do the weaning He said that his threw his narcotics away He said that that was a mistake from his He has been discharged from multiple pain clinics Spoke to his PCP Dr. Hogan and pain management Dr. Cao about his care Due to his safety and recent admission for lethargy and possible narcotic overdose, not safe to discharge him on narcotic as per pain management provider and PCP Pt said that he would appeal his discharge for this admission He said that he is ok to discharge home, if i provide him for a few days of n arcotic to continue for the weaning Nurse plastic sheets finishing supervisor went over his care of plan with him this morning that will be in his chart for future admission He did not sign the care of plan because he does not agree with it Denies any chest pain, palpitation, dizziness and SOB Physical Exam Physical Exam: General- No acute distress, obesity Head- atraumatic Eyes- PERRL, EOMI, ENT- oropharynx clear Neck- supple, no JVD Lungs- diminished BS Heart- regular rhythm; no murmur Abdomen- normal bowel sounds, soft, nontender Extremities- no calf tenderness Neuro- alert, oriented x 3; PERRL, EOMI; no facial palsy; no dysarthria Skin- warm & dry Results & Data Vital Signs (Past 12 Hours) Vital Signs Temp Pulse Pulse Resp BP BP Pulse Ox 06/15/19 19:08 36.7 C 74 20 111/71 95 06/15/19 16:00 37.0 C 88 22 113/75 93 06/15/19 15:00 86 06/15/19 11:48 36.9 C 80 18 103/66 95 06/15/19 08:00 68 06/15/19 07:53 36.9 C 81 18 112/77 96 (1) UTI (urinary tract infection) Hematuria presence: with hematuria Urinary tract infection type: site unspecified Qualified Code(s): N39.0 - Urinary tract infection, site not specified; R31.9 - Hematuria, unspecified (2) CHF (congestive heart failure) Heart failure chronicity: acute Heart failure type: unspecified Qualified Code(s): I50.9 - Heart failure, unspecified (3) Pulmonary embolism Acute cor pulmonale presence: without acute cor pulmonale Chronicity: chronic Pulmonary embolism type: unspecified Qualified Code(s): I27.82 - Chronic pulmonary embolism
[2019-06-15] MEDS ORDERED: NITROGLYCERIN SL 0.4 MG/TAB TAB SL STA (21:11)
[2019-06-15 21:52] LABS: Partial Thromboplastin Time 27.9 Seconds (21.0-31.0)
[2019-06-15 21:57] LABS: Alanine Aminotransferase 32 U/L (12-78); Albumin Level 2.7 gm/dl (3.4-5.0); Aspartate Aminotransferase 11 U/L (15-37); BUN Creatinine Ratio 22.4 (10-20); Blood Urea Nitrogen 39 mg/dl (7-18); Calcium 8.6 mg/dl (8.5-10.1); Carbon Dioxide 30 mmol/L (21-32); Chloride 104 mmol/L (98-107); Creatinine Clr Calc Pharmacy 92.8 ml/min; Est GFR (African American) 52.6; Est GFR (Non-African American) 45.4; Glucose 183 mg/dl (70-99); Lipase 80 U/L (73-393); Potassium 4.2 mmol/L (3.5-5.1); Sodium 140 mmol/L (136-145)
[2019-06-15 22:02] LABS: Albumin Globulin Ratio 0.8 (0.9-2); Alkaline Phosphatase 106 U/L (45-117); Bilirubin,Total 0.3 mg/dl (0.2-1); Globulin 3.2 gm/dl (2.5-4.0); Total Protein 5.9 gm/dl (6.4-8.2); Troponin I < 0.015 ng/ml (0-0.045)
[2019-06-15] MEDS: MIRTAZAPINE TAB 15 MG TAB PO PRN (22:03)
[2019-06-15] MEDS: PROMETHAZINE HCL 25 MG in SODIUM CHLORIDE 0.9% 50 ML IV PRN (22:03)
--- NOTE | 2019-06-15 22:48 | Hospitalist Progress Note ---
Date of Service June 15, 2019 Subjective Patient complaining of left-sided chest pain relieved by nitro. EKG as per my interpretation rate 70, NSR, normal axis, no ischemia Troponin was negative Serum creatinine 1.7 AP Atypical chest pain ARF Hold Torsemide for now. Will relay to AM provider. Results & Data Vital Signs (Past 12 Hours) Vital Signs Temp Pulse Pulse Resp BP BP Pulse Ox 06/15/19 21:20 78 112/69 06/15/19 19:08 36.7 C 74 20 111/71 95 06/15/19 16:00 37.0 C 88 22 113/75 93 06/15/19 15:00 86 06/15/19 11:48 36.9 C 80 18 103/66 95
[2019-06-16] MEDS: CHECK CLONIDINE PATCH PLACEMENT SCH ×3 (00:39→16:43)
[2019-06-16] MEDS: OXYCODONE HCL IR 5 MG TAB (IMMEDIATE RELEASE) PO PRN ×3 (01:30→17:53)
[2019-06-16] MEDS: TRAMADOL HCL 50 MG TABLET PO PRN ×5 (01:31→21:16)
[2019-06-16 06:49] LABS: Appearance Urine Clear (Clear); Bilirubin Urine Negative (Negative); Blood Urine Negative (Negative); Color Urine Yellow; Glucose Urine UA Negative (Negative); Ketones Urine Negative (Negative); Leukocyte Esterase Urine Negative (Negative); Nitrite Urine Negative (Negative); Protein Urine Negative (Negative); Specific Gravity Urine 1.024 (1.000-1.030); Urobilinogen Urine Negative (Negative); pH Urine 6.5 (4.5-7.5)
[2019-06-16] MEDS: CYCLOBENZAPRINE HCL 10 MG TAB PO SCH ×2 (08:47→21:46)
[2019-06-16] MEDS: MoRPHine SULFATE CR 15 MG TABCR PO SCH ×2 (08:47→21:16)
[2019-06-16] MEDS: TIOTROPIUM BROMIDE 5 PUFF/90 MCG INH INH SCH (08:47)
[2019-06-16] MEDS: TAMSULOSIN HCL 0.4 MG CAP PO SCH (08:48)
[2019-06-16] MEDS: GABAPENTIN 300 MG CAP PO SCH ×3 (08:48→21:46)
[2019-06-16] MEDS: ASPIRIN 81 MG ECTAB PO SCH (08:48)
[2019-06-16] MEDS: DOCUSATE SODIUM 100 MG CAP PO SCH ×2 (08:51→21:46)
[2019-06-16] MEDS: DULOXETINE HCL 60 MG CAP PO SCH (08:51)
[2019-06-16] MEDS: LACTOBACILLUS ACIDOPHILUS (FLORANEX) TAB PO SCH (08:52)
[2019-06-16] MEDS: FLUTICASONE PROPIONATE NA SPR 16 GM BTL SCH (08:52)
[2019-06-16] MEDS: ISOSORBIDE MONO EXTENDED REL 30 MG TABCR PO SCH (08:53)
[2019-06-16] MEDS: predniSONE 20 MG TAB PO SCH (08:54)
[2019-06-16] MEDS: FINASTERIDE 5 MG TAB PO SCH (08:55)
[2019-06-16] MEDS: PANTOprazole 40 MG TAB PO SCH (08:55)
[2019-06-16] MEDS: METOPROLOL SUCC 50MG EXT REL TAB PO SCH ×2 (08:56→21:46)
[2019-06-16] MEDS: POTASSIUM CHLORIDE 20 MEQ TABCR PO SCH ×2 (08:56→21:46)
[2019-06-16] MEDS: NICOTINE 21 MG/24 HR TDSY TD SCH (08:56)
[2019-06-16] MEDS: INSULIN ASPART 100 UNITS/ML 3 ML PEN SC SCH ×4 (08:57→21:49)
[2019-06-16] MEDS: ALBUT/IPRATROP 3MG/0.5MG NEB 3 ML VIAL NEB SCH ×3 (09:06→19:41)
[2019-06-16 10:46] LABS: INR 1.8 (0.9-1.1); Prothrombin Time 17.7 Seconds (9.0-12.0)
[2019-06-16 11:05] LABS: BUN Creatinine Ratio 30.4 (10-20); Creatinine Clr Calc Pharmacy 137.7 ml/min; Est GFR (African American) 84.9; Est GFR (Non-African American) 73.3; Potassium 3.9 mmol/L (3.5-5.1)
[2019-06-16] MEDS: LORazepam 0.5 MG TAB PO PRN (12:12)
[2019-06-16] MEDS: PROMETHAZINE HCL 25 MG in SODIUM CHLORIDE 0.9% 50 ML IV PRN ×2 (12:21→22:26)
--- NOTE | 2019-06-16 13:44 | XRay Report ---
XR ankle LT 2V HISTORY: 48 years-old Male Left ankle pain acute left ankle pain COMPARISON: Left ankle radiograph 05/11/2019 TECHNIQUE: 2 views of the left ankle FINDINGS: Small enthesophyte about the Achilles insertion site of the calcaneus. Soft tissue prominence of the lower leg, foot and ankle. Soft tissue calcifications of the medial lower leg. No acute fracture, dis location, osteochondral defect or opaque foreign body. IMPRESSION: No acute fracture or dislocation. The above report was generated using voice recognition software. It may contain grammatical, syntax o r spelling errors. Electronically signed by: Kem Apodaca M.D. 06/16/2019 1:43 PM
--- NOTE | 2019-06-16 13:52 | Hospitalist Progress Note ---
Date of Service June 16, 2019 Assessment & Plan (1) Metabolic encephalopathy: He presented to ER with lethargy and pleasantly confused Noted to have very drowsy and lethargy on admission CT head showed no acute intracranial finding Suspected overuse of narcotics pain medication has been ruled out after taking detailed history from the patient and his fiance Narcan was not given Resolved (2) Chronic pain disorder: He was crying today because he wanted IV pain med Pain management starting to wean him off from the narcotic due to suspected overdose with narcotics He has been dismissed from the pain clinic on the of this month because of multiple issues but mainly noncompliant Continues to complain about pain and asking for more pain medications Recommendation was due to management of noncancerous pain He was advised to find out a outpatient pain therapist to take care of his chronic pain if he still needs pain control Ortho was consulted no surgical intervention at this time His body habitus and medical history makes him extreme risk for any surgical intervention let alone any reasonable outcome as per ortho Recommended weight loss evaluation case discussed with PCP and pain management, they are not comfortable to give him any narcotic due to safety issues He has been discharge from multiple pain clinics He is planning to try the marijuana clinic Will discharge on clonidine prn and Remeron for opioid withdrawn symptoms Not interested to go to drug rehab facility Chronic right foot pain Xray showed no significant bony healing of the chronic-appearing third metatarsal fracture. Ortho on board Surgery not indicated in the acute inpatient setting as per ortho Ortho recommended weight-bear as tolerates and postop shoe. Follow up with ortho as an outpatient to discuss outpatient surgery (Please call to schedule for the follow up) (3) CHF (congestive heart failure): Acute on chronic diastolic heart failure Complaint to have a weight gain of about 17 pounds cardio on board Intravenous Lasix changed to demadex today by cardio Continue fluid restriction at 1.8L daily Output negative 14L during this admission Continue Torsemide 20mg daily Creatinine increased to 1.7 last night, then improved to 1.1 today Will check BMP next week to monitor electrolytes and renal function Case discussed with cardiology and stable from cardiology standpoint to discharge on torsemide 20mg with K supplement MAHAMED on CKD Creatinine was noted to be 1.70 on admission Creatinine 1.1 today Monitor BMP while on diuretic Avoid nephrotoxic agents (4) Supratherapeutic INR: INR noted to be more than 10 No evidence of any active bleeding Received vitamin K on admission INR 1.8 today continue coumadin follow up with the coag clinic Monitor PT/INR (5) COPD exacerbation: May have mild exacerbation of COPD Has been getting intravenous Solu-Medrol Intravenous Solu-Medrol changed to oral prednisone Continue prednisone 40mg and neb treatment Clinically stable (6) UTI (urinary tract infection): Has chronic indwelling Lloyd catheter History of recurrent UTI Has been getting Zosyn for possible infection Urine culture was not sent as UA was not suggestive of infection Blood cultures have been negative Zosyn discontinued (7) Pulmonary embolism: Did not have any DVT during last admission Has been on Coumadin for pulmonary embolism Continue Coumadin daily Monitor PT/INR in am Follow up with the coag clinic (8) Depression with anxiety: has been very anxious and agitated since he is getting wean from the narcotic On Ativan PO Continue Coumadin psych for now Denies any suicidal thought (9) Morbid obesity: Noncompliant with diet Counseling on weight lost Left ankle pain Xray of the L ankle showed no acute fracture or dislocation. Continue pain control Will arrange for home health with PT/OT Noted to have a few blast cells and peripheral blood smear Blood smear showed no blast or schistocytes noted Stable DVT prophylaxis Resume Coumadin, INR 1.8 CODE STATUS FULL CODE Disposition Multidisciplinary meeting with service excellence, dietary department, psychiatrist, case management, pain management, physical therapist to help with his plan of care for the improvement of his current condition Follow up with PCP Dr. Hogan on 06/20 @ 11:05 AM Denies inpatient rehab/SNF Subjective Pt was seen and examined Lying in bed with no distress getting ready to eat lunch He said that he is having pain in his left ankle He denies any fall or injury/trauma of the left ankle I told him that I scheduled a follow up appointment for him on Wednesday with his PCP He said that he would not have any ride to take him and rather to change it to Wednesday He continue to say that he would appeal his discharge because he does not feel 100% I told him that he is stable, but he will need close follow up with his PCP and his specialists to treat his chronic disease He did not ask for any IV narcotic for his pain He only complaints of the pain in his L ankle He has been standing/ moving in his room to close the door because he does not want to keep it open Currently denies any chest pain, palpitation, dizziness and SOB Physical Exam Physical Exam: General- No acute distress, obesity Head- atraumatic Eyes- PERRL, EOMI, ENT- oropharynx clear Neck- supple, no JVD Lungs- diminished BS Heart- regular rhythm; no murmur Abdomen- normal bowel sounds, soft, nontender Extremities- no calf tenderness, Left ankle tenderness Neuro- alert, oriented x 3; PERRL, EOMI; no facial palsy; no dysarthria Skin- warm & dry Results & Data Vital Signs (Past 12 Hours) Vital Signs Temp Pulse Pulse Resp BP BP Pulse Ox 06/16/19 13:21 78 18 94 06/16/19 12:40 36.5 C 81 18 126/76 97 06/16/19 07:54 36.6 C 65 23 130/72 97 06/16/19 04:00 36.5 C 68 20 123/77 97 (1) UTI (urinary tract infection) Hematuria presence: with hematuria Urinary tract infection type: site unspeci fied Qualified Code(s): N39.0 - Urinary tract infection, site not specified; R31.9 - Hematuria, unspecified (2) CHF (congestive heart failure) Heart failure chronicity: acute Heart failure type: unspecified Qualified Code(s): I50.9 - Heart failure, unspecified (3) Pulmonary embolism Acute cor pulmonale presence: without acute cor pulmonale Chronicity: chronic Pulmonary embolism type: unspecified Qualified Code(s): I27.82 - Chronic pulmonary embolism
[2019-06-16] MEDS: TORSEMIDE 10 MG TAB PO SCH (14:07)
[2019-06-16] MEDS: WARFARIN SOD 5 MG TAB PO SCH (16:43)
[2019-06-16] MEDS: MIRTAZAPINE TAB 15 MG TAB PO PRN (21:46)
[2019-06-17] MEDS: CHECK CLONIDINE PATCH PLACEMENT SCH ×4 (01:08→23:13)
[2019-06-17] MEDS: OXYCODONE HCL IR 5 MG TAB (IMMEDIATE RELEASE) PO PRN ×2 (02:27→10:20)
[2019-06-17] MEDS: TRAMADOL HCL 50 MG TABLET PO PRN ×5 (02:28→22:41)
[2019-06-17] MEDS: LORazepam 0.5 MG TAB PO PRN ×2 (02:55→22:42)
[2019-06-17] MEDS: ALBUT/IPRATROP 3MG/0.5MG NEB 3 ML VIAL NEB SCH ×3 (07:14→18:57)
[2019-06-17] MEDS: LACTOBACILLUS ACIDOPHILUS (FLORANEX) TAB PO SCH (08:27)
[2019-06-17] MEDS: METOPROLOL SUCC 50MG EXT REL TAB PO SCH ×2 (08:27→21:11)
[2019-06-17] MEDS: DOCUSATE SODIUM 100 MG CAP PO SCH ×2 (08:27→21:12)
[2019-06-17] MEDS: MoRPHine SULFATE CR 15 MG TABCR PO SCH ×2 (08:27→21:12)
[2019-06-17] MEDS: TIOTROPIUM BROMIDE 5 PUFF/90 MCG INH INH SCH (08:28)
[2019-06-17] MEDS: FLUTICASONE PROPIONATE NA SPR 16 GM BTL SCH (08:28)
[2019-06-17] MEDS: ISOSORBIDE MONO EXTENDED REL 30 MG TABCR PO SCH (08:28)
[2019-06-17] MEDS: GABAPENTIN 300 MG CAP PO SCH ×3 (08:28→21:12)
[2019-06-17] MEDS: NICOTINE 21 MG/24 HR TDSY TD SCH (08:29)
[2019-06-17] MEDS: FINASTERIDE 5 MG TAB PO SCH (08:29)
[2019-06-17] MEDS: TORSEMIDE 10 MG TAB PO SCH (08:29)
[2019-06-17] MEDS: PANTOprazole 40 MG TAB PO SCH (08:29)
[2019-06-17] MEDS: CYCLOBENZAPRINE HCL 10 MG TAB PO SCH ×2 (08:29→21:12)
[2019-06-17] MEDS: ASPIRIN 81 MG ECTAB PO SCH (08:30)
[2019-06-17] MEDS: POTASSIUM CHLORIDE 20 MEQ TABCR PO SCH ×2 (08:30→21:13)
[2019-06-17] MEDS: TAMSULOSIN HCL 0.4 MG CAP PO SCH (08:30)
[2019-06-17] MEDS: DULOXETINE HCL 60 MG CAP PO SCH (08:30)
[2019-06-17] MEDS: predniSONE 20 MG TAB PO SCH (08:30)
[2019-06-17] MEDS: INSULIN ASPART 100 UNITS/ML 3 ML PEN SC SCH ×4 (08:31→21:11)
[2019-06-17 09:51] LABS: INR 1.4 (0.9-1.1); Prothrombin Time 13.8 Seconds (9.0-12.0)
[2019-06-17] MEDS ORDERED: OXYCODONE HCL IR 5 MG TAB (IMMEDIATE RELEASE) PO PRN ×2 (10:15→10:16)
[2019-06-17] MEDS: PROMETHAZINE HCL 25 MG in SODIUM CHLORIDE 0.9% 50 ML IV PRN ×2 (11:09→19:39)
[2019-06-17] MEDS: HEPARIN SOD 5,000 UNIT/0.5 ML VIAL SQ SCH ×3 (16:24→21:10)
[2019-06-17] MEDS: WARFARIN SOD 5 MG TAB PO SCH (16:25)
--- NOTE | 2019-06-17 17:02 | Hospitalist Progress Note ---
Date of Service June 17, 2019 Assessment & Plan (1) Metabolic encephalopathy: He presented to ER with lethargy and pleasantly confused Noted to have very drowsy and lethargy on admission CT head showed no acute intracranial finding Suspected overuse of narcotics pain medication has been ruled out after taking detailed history from the patient and his fiance Narcan was not given since pt was able to arousal Resolved (2) Chronic pain disorder: He was crying today because he wanted IV pain med Pain management starting to wean him off from the narcotic due to suspected overdose with narcotics He has been dismissed from the pain clinic on the of this month because of multiple issues but mainly noncompliant Continues to complain about pain and asking for more pain medications Recommendation was due to management of noncancerous pain He was advised to find out a outpatient pain therapist to take care of his chronic pain if he still needs pain control Ortho was consulted no surgical intervention at this time His body habitus and medical history makes him extreme risk for any surgical intervention let alone any reasonable outcome as per ortho Recommended weight loss evaluation case discussed with PCP and pain management, they are not comfortable to give him any narcotic due to safety issues He has been discharge from multiple pain clinics He is planning to try the marijuana clinic Will discharge on clonidine prn and Remeron for opioid withdrawn symptoms Not interested to go to drug rehab facility Chronic right foot pain Xray showed no significant bony healing of the chronic-appearing third metatarsal fracture. Ortho on board Surgery not indicated in the acute inpatient setting as per ortho Ortho recommended weight-bear as tolerates and postop shoe. Follow up with ortho as an outpatient to discuss outpatient surgery (Please call to schedule for the follow up) (3) CHF (congestive heart failure): Acute on chronic diastolic heart failure Complaint to have a weight gain of about 17 pounds cardio on board Intravenous Lasix changed to demadex today by cardio Continue fluid restriction at 1.8L daily Output negative 14L during this admission Continue Torsemide 20mg daily Creatinine increased to 1.7 then improved to 1.1 Will check BMP next week to monitor electrolytes and renal function Case discussed with cardiology and stable from cardiology standpoint to discharge on torsemide 20mg with K supplement MAHAMED on CKD Creatinine was noted to be 1.70 on admission Creatinine 1.1 today Monitor BMP while on diuretic Avoid nephrotoxic agents (4) Supratherapeutic INR: INR noted to be more than 10 No evidence of any active bleeding Received vitamin K on admission INR 1.4 today continue coumadin follow [facility] Monitor PT/INR (5) COPD exacerbation: May have mild exacerbation of COPD Has been getting intravenous Solu-Medrol Intravenous Solu-Medrol changed to oral prednisone Continue prednisone 40mg and neb treatment Clinically stable (6) UTI (urinary tract infection): Has chronic indwelling Lloyd catheter History of recurrent UTI Has been getting Zosyn for possible infection Urine culture was not sent as UA was not suggestive of infection Blood cultures have been negative Zosyn discontinued (7) Pulmonary embolism: Did not have any DVT during last admission Has been on Coumadin for pulmonary embolism Continue Coumadin daily Monitor PT/INR in am Follow up with the [facility] (8) Depression with anxiety: has been very anxious and agitated since he is getting wean from the narcotic On Ativan PO Continue Coumadin psych for now Denies any suicidal thought (9) Morbid obesity: Noncompliant with diet Counseling on weight lost Left ankle pain Xray of the L ankle showed no acute fracture or dislocation. Continue pain control Will arrange for home health with PT/OT Already on prednisone Noted to have a few blast cells and peripheral blood smear Blood smear showed no blast or schistocytes noted Stable DVT prophylaxis On Coumadin, INR 1.4 On heparin subq while INR subtherapeutic CODE STATUS FULL CODE Disposition Multidisciplinary meeting with service excellence, dietary department, psychiatrist, case management, pain management, physical therapist to help with his plan of care for the improvement of his current condition Follow up with PCP Dr. Hogan on 06/20 @ 11:05 AM Denies inpatient rehab/SNF Discharge home with home health services with PT/OT Subjective Pt was seen and examined Lying in bed with no distress Pt said that he continues to have pain in his left ankle He said that pain is worst with movement of the left foot he had an xray done of the left ankle that was negative yesterday He continues complaint that he is not getting enough food to eat He continues to ask for more calories intake because he does not feel full He continues requesting for narcotic on discharge and said that his threw all his narcotic by mistake Denies any chest pain, palpitation, dizziness and SOB Physical Exam Physical Exam: General- No acute distress, obesity Head- atraumatic Eyes- PERRL, EOMI, ENT- oropharynx clear Neck- supple, no JVD Lungs- diminished BS Heart- regular rhythm; no murmur Abdomen- normal bowel sounds, soft, nontender Extremities- no calf tenderness, Left ankle tenderness, no erythema in left ankle area Neuro- alert, oriented x 3; PERRL, EOMI; no facial palsy; no dysarthria Skin- warm & dry Results & Data Vital Signs (Past 12 Hours) Vital Signs Temp Pulse Pulse Resp BP BP Pulse Ox 06/17/19 15:20 37.2 C 104 H 18 100/64 95 06/17/19 11:53 36.9 C 83 20 121/70 98 06/17/19 07:51 36.4 C L 79 20 127/71 97 06/17/19 07:14 77 18 97 (1) UTI (urinary tract infection) Hematuria presence: with hematuria Urinary tract infection type: site unspecified Qualified Code(s): N39.0 - Urinary tract infection, site not specified; R31.9 - Hematuria, unspecified (2) CHF (congestive heart failure) Heart failure chronicity: acute Heart failure type: unspecified Qualified Code(s): I50.9 - Heart failure, unspecified (3) Pulmonary embolism Acute cor pulmonale presence: without acute cor pulmonale Chronicity: chronic Pulmonary embolism type: unspecified Qualified Code(s): I27.82 - Chronic pulmonary embolism
[2019-06-17] MEDS ORDERED: WARFARIN SOD 1 MG TAB PO ONE (18:30)
[2019-06-17] MEDS: MIRTAZAPINE TAB 15 MG TAB PO PRN (21:12)
[2019-06-18] MEDS: PROMETHAZINE HCL 25 MG in SODIUM CHLORIDE 0.9% 50 ML IV PRN ×3 (02:22→16:50)
[2019-06-18] MEDS: TRAMADOL HCL 50 MG TABLET PO PRN ×3 (05:22→17:43)
[2019-06-18] MEDS: HEPARIN SOD 5,000 UNIT/0.5 ML VIAL SQ SCH ×2 (05:22→16:00)
[2019-06-18 07:05] LABS: INR 1.2 (0.9-1.1)
[2019-06-18] MEDS: ALBUT/IPRATROP 3MG/0.5MG NEB 3 ML VIAL NEB SCH ×3 (07:20→19:28)
[2019-06-18 07:33] LABS: Est GFR (African American) 92.5; Est GFR (Non-African American) 79.8; Potassium 3.8 mmol/L (3.5-5.1)
[2019-06-18 07:34] LABS: BUN Creatinine Ratio 28.4 (10-20); Calcium 8.9 mg/dl (8.5-10.1); Creatinine Clr Calc Pharmacy 147.7 ml/min
[2019-06-18] MEDS: FLUTICASONE PROPIONATE NA SPR 16 GM BTL SCH (08:16)
[2019-06-18] MEDS: predniSONE 20 MG TAB PO SCH (08:17)
[2019-06-18] MEDS: LACTOBACILLUS ACIDOPHILUS (FLORANEX) TAB PO SCH (08:17)
[2019-06-18] MEDS: PANTOprazole 40 MG TAB PO SCH (08:17)
[2019-06-18] MEDS: GABAPENTIN 300 MG CAP PO SCH ×2 (08:17→15:58)
[2019-06-18] MEDS: CYCLOBENZAPRINE HCL 10 MG TAB PO SCH (08:17)
[2019-06-18] MEDS: DOCUSATE SODIUM 100 MG CAP PO SCH (08:17)
[2019-06-18] MEDS: METOPROLOL SUCC 50MG EXT REL TAB PO SCH (08:17)
[2019-06-18] MEDS: ISOSORBIDE MONO EXTENDED REL 30 MG TABCR PO SCH (08:17)
[2019-06-18] MEDS: FINASTERIDE 5 MG TAB PO SCH (08:17)
[2019-06-18] MEDS: TORSEMIDE 10 MG TAB PO SCH (08:18)
[2019-06-18] MEDS: NICOTINE 21 MG/24 HR TDSY TD SCH (08:18)
[2019-06-18] MEDS: TIOTROPIUM BROMIDE 5 PUFF/90 MCG INH INH SCH (08:18)
[2019-06-18] MEDS: DULOXETINE HCL 60 MG CAP PO SCH (08:18)
[2019-06-18] MEDS: TAMSULOSIN HCL 0.4 MG CAP PO SCH (08:18)
[2019-06-18] MEDS: POTASSIUM CHLORIDE 20 MEQ TABCR PO SCH (08:19)
[2019-06-18] MEDS: MoRPHine SULFATE CR 15 MG TABCR PO SCH (08:19)
[2019-06-18] MEDS: CHECK CLONIDINE PATCH PLACEMENT SCH ×2 (08:19→17:23)
[2019-06-18] MEDS: ASPIRIN 81 MG ECTAB PO SCH (08:19)
[2019-06-18] MEDS: INSULIN ASPART 100 UNITS/ML 3 ML PEN SC SCH ×3 (08:20→17:23)
[2019-06-18] MEDS: LORazepam 0.5 MG TAB PO PRN (11:18)
[2019-06-18] MEDS: OXYCODONE HCL IR 5 MG TAB (IMMEDIATE RELEASE) PO PRN (11:19)
[2019-06-18] MEDS: WARFARIN SOD 5 MG TAB PO SCH (15:58)
--- NOTE | 2019-06-18 17:18 | Hospitalist Progress Note ---
Date of Service June 18, 2019 Assessment & Plan (1) Metabolic encephalopathy: He presented to ER with lethargy and pleasantly confused Noted to have very drowsy and lethargy on admission CT head showed no acute intracranial finding Suspected overuse of narcotics pain medication has been ruled out after taking detailed history from the patient and his fiance Narcan was not given since pt was able to arousal Resolved (2) Chronic pain disorder: He was crying today because he wanted IV pain med Pain management starting to wean him off from the narcotic due to suspected overdose with narcotics He has been dismissed from the pain clinic on the of this month because of multiple issues but mainly noncompliant Continues to complain about pain and asking for more pain medications Recommendation was due to management of noncancerous pain He was advised to find out a outpatient pain therapist to take care of his chronic pain if he still needs pain control Ortho was consulted no surgical intervention at this time His body habitus and medical history makes him extreme risk for any surgical intervention let alone any reasonable outcome as per ortho Recommended weight loss evaluation case discussed with PCP and pain management, they are not comfortable to give him any narcotic due to safety issues He has been discharge from multiple pain clinics He is planning to try the marijuana clinic Will discharge on clonidine prn and Remeron for opioid withdrawn symptoms Not interested to go to drug rehab facility Plan to go home tomorrow Chronic right foot pain Xray showed no significant bony healing of the chronic-appearing third metatarsal fracture. Ortho on board Surgery not indicated in the acute inpatient setting as per ortho Ortho recommended weight-bear as tolerates and postop shoe. Follow up with ortho as an outpatient to discuss outpatient surgery (Please call to schedule for the follow up) (3) CHF (congestive heart failure): Acute on chronic diastolic heart failure Complaint to have a weight gain of about 17 pounds cardio on board Intravenous Lasix changed to demadex today by cardio Continue fluid restriction at 1.8L daily Output negative 14L during this admission Continue Torsemide 20mg daily Creatinine increased to 1.7 then improved to 1.02 today Will check BMP next week to monitor electrolytes and renal function Case discussed with cardiology and stable from cardiology standpoint to discharge on torsemide 20mg with K supplement MAHAMED on CKD Creatinine was noted to be 1.70 on admission Creatinine 1.02 today Monitor BMP while on diuretic Avoid nephrotoxic agents resolved (4) Supratherapeutic INR: INR noted to be more than 10 No evidence of any active bleeding Received vitamin K on admission INR 1.2 today continue coumadin follow up with the [facility] Monitor PT/INR (5) COPD exacerbation: May have mild exacerbation of COPD Has been getting intravenous Solu-Medrol Intravenous Solu-Medrol changed to oral prednisone Continue prednisone 40mg and neb treatment Clinically stable (6) UTI (urinary tract infection): Has chronic indwelling Lloyd catheter History of recurrent UTI Has been getting Zosyn for possible infection Urine culture was not sent as UA was not suggestive of infection Blood cultures have been negative Zosyn discontinued (7) Pulmonary embolism: Did not have any DVT during last admission Has been on Coumadin for pulmonary embolism Continue Coumadin daily Monitor PT/INR in am Follow up with the [facility] (8) Depression with anxiety: has been very anxious and agitated since he is getting wean from the narcotic On Ativan PO Continue Coumadin psych for now Denies any suicidal thought (9) Morbid obesity: Noncompliant with diet Counseling on weight lost Left ankle pain Xray of the L ankle showed no acute fracture or dislocation. Continue pain control Will arrange for home health with PT/OT Already on prednisone Elevated WBC Due to prednisone No sign infection, afebrile Continue monitor Noted to have a few blast cells and peripheral blood smear Blood smear showed no blast or schistocytes noted Stable DVT prophylaxis On Coumadin, INR 1.2 On heparin subq while INR subtherapeutic CODE STATUS FULL CODE Disposition Multidisciplinary meeting with service excellence, dietary department, psyc hiatrist, case management, pain management, physical therapist to help with his plan of care for the improvement of his current condition Follow up with PCP Dr. Hogan on 06/20 @ 11:05 AM Denies inpatient rehab/SNF Discharge home with home health services with PT/OT Subjective Pt was seen and examined Lying in bed with no distress Pt said that he feels a little better today He said that he continues to have pain around left ankle area While unwrap the cesilia bandage and talking to him as well, i pressed surrounding area in the left ankle with no pain Once he noticed that I pushed on his left ankle, he screamed with pain He continues to ask for extra snack because he still feels hungry He said that he would leave tomorrow because they insurance denied his appeal Denies any chest pain, palpitation, dizziness and SOB Physical Exam Physical Exam: General- No acute distress, obesity Head- atraumatic Eyes- PERRL, EOMI, ENT- oropharynx clear Neck- supple, no JVD Lungs- diminished BS Heart- regular rhythm; no murmur Abdomen- normal bowel sounds, soft, nontender Extremities- no calf tenderness, Left ankle tenderness, no erythema or swelling in left ankle area Neuro- alert, oriented x 3; PERRL, EOMI; no facial palsy; no dysarthria Skin- warm & dry Results & Data Vital Signs (Past 12 Hours) Vital Signs Temp Pulse Resp BP BP Pulse Ox 06/18/19 16:08 36.8 C 74 113/65 95 06/18/19 13:07 77 19 96 06/18/19 12:14 36.7 C 77 18 130/66 96 (1) UTI (urinary tract infection) Hematuria presence: with hematuria Urinary tract infection type: site unspecified Qualified Code(s): N39.0 - Urinary tract infection, site not specified; R31.9 - Hematuria, unspecified (2) CHF (congestive heart failure) Heart failure chronicity: acute Heart failure type: unspecified Qualified Code(s): I50.9 - Heart failure, unspecified (3) Pulmonary embolism Acute cor pulmonale presence: without acute cor pulmonale Chronicity: chronic Pulmonary embolism type: unspecified Qualified Code(s): I27.82 - Chronic pulmonary embolism
[2019-06-18] MEDS ORDERED: WARFARIN SOD 1 MG TAB PO ONE (17:45)
[2019-06-18] MEDS ORDERED: OXYCODONE HCL IR 5 MG TAB (IMMEDIATE RELEASE) PO ONE (19:30)
--- NOTE | 2019-06-19 08:45 | Discharge Summary ---
Date of Service June 18, 2019 Admission HPI Per Admitting Provider CHIEF COMPLAINT: Lethargy. HISTORY OF PRESENT ILLNESS: This is a 48-year-old male with past medical history significant for type 2 diabetes, hypertension, history of pulmonary embolism, on Coumadin, depression with anxiety, chronic back pain on oral narcotics, COPD, urinary retention with chronic Fontaine, history of diastolic congestive heart failure, history of recurrent hospitalizations for CHF and chest pains. Recent admission ACS was ruled out. At that could not do a CTA of the chest because of elevated creatinine, but received heparin and he was continued with Coumadin. And also he was treated with prednisone, with steroids for his COPD exacerbation. There was a question of palpitations, but in the hospital there were no arrhythmias noted.He was also given IV Lasix for CHF. Nephrology was contacted as his creatinine was climbing up to 1.7 and he was discharged on torsemide 20 mg daily and stopped his Aldactone at discharge, and his urine had E. coli was treated with Rocephin and for chronic pain he was consulted with pain doctor as he was requesting for pain medications. Seen by pain doctor. He did okay finally and was discharged. He was in the hospital from 05/12/2019 to 06/01/2019. He had a followup appointment with family doctor a couple of days ago and he mentioned about weight gain as per PCP notes and also as per girlfriend. It seems he was also discharged with pain management as per girlfriend because he was a no show before.His girlfriend says he gained about 17 pounds and recently his INR was checked, it was 7,. Girl friend states since yesterday night and today morning, the patient is lethargic, sleeping all the time, and he also fell down a couple of days ago. He is mostly nonambulatory. With great difficulty, he ambulates. Since today morning, she did not given any pain medications. As he was discharged from pain clinic as per girl friend he is just getting the pain medications which were left over. The patient also complained of some double vision on the right eye in the morning. Currently, patient is very drowsy, sleepy, somewhat hard to wake him up, can tell his name, knows that he is in the [facility], could not tell the dates.Moves his extremities on command and he goes back to sleep. Could not get much history from the patient. As per the , no diarrhea or constipation. Moving his bowels and bladder okay. Has complained of some headache, but denies any other pain. No cough, no nausea, no vomiting. He is just sleeping all day today. Currently his hemodynamics are stable in the ER. Received IV lasix in er has cxr showed some congestion and lower extremities were edematous and possibly some mild erythematous changes. . His white count is 15, but he is on prednisone, it was 20 at the time of discharge. Hemoglobin is 10.3, it was 12.9 at the time of discharge, but could be dilutional. His INR is greater than 10, he got 5 mg of vitamin K in the ER. His venous blood gases are okay. His creatinine is 1.7. LFTs are okay. Troponin is negative. Chest x-ray showed mild congestion. Admission Exam Per Admitting Provider GENERAL: The patient is drowsy, difficult to arouse, but oriented to name and place. VITAL SIGNS: Temperature 37.1, pulse 86, respiratory rate 22, blood pressure 116/80, oxygen 96% on room air. HEENT: Pupils are somewhat dilated, but reactive to light, no icterus. NECK: No JVD, no neck masses. CARDIOVASCULAR: S1, S2 heard, regular rate and rhythm, no murmur, no gallop. RESPIRATORY SYSTEM: Normal AP diameter. No accessory muscle use. Mild bilateral wheezing. ABDOMEN: Soft, bowel sounds present. No distention. No obvious tenderness. CENTRAL NERVOUS SYSTEM: Drowsy, difficult to arouse, but oriented to name and place, obeys simple commands. Moves extremities. EXTREMITIES: Bilateral lower extremity gross edema seen and mild erythematous changes. Principal Diagnosis Metabolic encephalopathy Chronic pain disorder Chronic right foot pain Acute on chronic diastolic heart failure Supratherapeutic INR COPD exacerbation Discharge Exam General- No acute distress, obesity Head- atraumatic Eyes- PERRL, EOMI, ENT- oropharynx clear Neck- supple, no JVD Lungs- diminished BS Heart- regular rhythm; no murmur Abdomen- normal bowel sounds, soft, nontender Extremities- no calf tenderness, Left ankle tenderness, no erythema or swelling in left ankle area Neuro- alert, oriented x 3; PERRL, EOMI; no facial palsy; no dysarthria Skin- warm & dry Discharge Data Allergies Allergy/AdvReac Type Severity Reaction Status Date / Time fentanyl Allergy Intermediate RASH/HIVES/SKIN Verified 06/10/19 20:56 REDNESS acetaminophen AdvReac Intermediate Unknown Verified 06/10/19 20:56 valproic acid AdvReac Intermediate PANCREATITS Verified 06/10/19 20:56 Consultations 06/10/19 22:09 ED Decision to Admit Stat 06/11/19 00:26 Consult Case Management - Discharge Planning Routine 06/11/19 08:00 Consult Cardiology Routine 06/11/19 15:51 Consult Case Management - Discharge Planning Routine 06/12/19 10:35 Consult Pain Management Routine 06/13/19 13:29 Consult Orthopedic Surgery Routine 06/13/19 15:35 Consult Orthopedic Surgery Routine Ordered Studies 06/10/19 22:57 CT head/brain wo con Urgent XR ankle LT 2V HISTORY: 48 years-old Male Left ankle pain acute left ankle pain COMPARISON: Left ankle radiograph 05/11/2019 TECHNIQUE: 2 views of the left ankle FINDINGS: Small enthesophyte about the Achilles insertion site of the calcaneus. Soft tissue prominence of the lower leg, foot and ankle. Soft tissue calcifications of the medial lower leg. No acute fracture, dislocation, osteochondral defect or opaque foreign body. IMPRESSION: No acute fracture or dislocation. The above report was generated using voice recognition software. It may contain grammatical, syntax or spelling errors. Electronically signed by: Kem Apodaca M.D. 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 Remote fracture deformity about the mid diaphyseal aspect of the third metatarsal without significant interval bony bridging. Adjacent metallic fragments within the adjacent soft tissues are unchanged. Resultant foreshortening of the third metatarsal redemonstrated. No acute fracture or dislocation. Mild degenerative changes of the midfoot and hindfoot. IMPRESSION: No significant bony healing of the chronic-appearing third metatarsal fracture. The above report was generated using voice recognition software. It may contain grammatical, syntax or spelling errors. Electronically signed by: Kem Apodaca M.D. 06/13/2019 7:56 PM Dictated: 06/13/191953 Transcribed: 06/13/191953 CT head/brain wo con CLINICAL HISTORY: 48 years-old Male presenting with ams. elevated INR. TECHNIQUE: Multidetector CT imaging of the head was performed without the use of intravenous contrast. IV contrast: None. One or more dose lowering techniques were used consistent with the principles of ALARA (as low as reasonably achievable), including automatic exposure control, mA or kV adjustment to individual patient size, and/or use of iterative reconstruction. COMPARISON: 04/03/2019. CT DOSE (mGy.cm): The estimated cumulative dose is 614.27 mGy.cm. FINDINGS: Signaler topogram: The patient is edentulous. Ventricles and sulci normal in size. No hemorrhage. Brain parenchyma normal in appearance with preserved donald-white differentiation. No acute territorial infarct. No mass effect or midline shift. No extra-axial fluid collection. Sclerosis of the maxillary sinus subramanian and mild polypoid mucosal thickening in the right maxillary sinus. Trace fluid in the left mastoid air cells. Calvarium intact. IMPRESSION: 1. No acute intracranial abnormality. 2. Chronic sinusitis. Electronically signed by: Joey Merida M.D. 06/11/2019 5:28 AM Dictated: 06/11/19524 Transcribed: 06/11/19524 XR chest 1V portable HISTORY: Shortness of breath. COMPARISON: Chest 05/25/2019. FINDINGS: The heart is mildly enlarged. No pneumothorax. Small left pleural effusion. Progression of the interstitial and vascular thickening consistent with mild congestive change. No new focal lung consolidations. IMPRESSION: Mild pulmonary vascular congestion and a small left pleural effusion. This has progressed in the interval. Electronically signed by: Vidal Keller M.D. 06/10/2019 9:45 PM Dictated: 06/10/192143 Transcribed: 06/10/192143 Hospital Course (1) Metabolic encephalopathy: He presented to ER with lethargy and pleasantly confused Noted to have very drowsy and lethargy on admission CT head showed no acute intracranial finding Suspected overuse of narcotics pain medication has been ruled out after taking detailed history from the patient and his fiance Narcan was not given since pt was able to arousal Resolved (2) Chronic pain disorder: He was crying today because he wanted IV pain med Pain management starting to wean him off from the narcotic due to suspected overdose with narcotics He has been dismissed from the pain clinic on the 12th of this month because of multiple issues but mainly noncompliant Continues to complain about pain and asking for more pain medications Recommendation was due to management of noncancerous pain He was advised to find out a outpatient pain therapist to take care of his chronic pain if he still needs pain control Ortho was consulted no surgical intervention at this time His body habitus and medical history makes him extreme risk for any surgical intervention let alone any reasonable outcome as per ortho Recommended weight loss evaluation case discussed with PCP and pain management, they are not comfortable to give him any narcotic due to safety issues He has been discharge from multiple pain clinics He is planning to try the marijuana clinic Will discharge on clonidine prn and Remeron for opioid withdrawn symptoms Not interested to go to drug rehab facility Plan to go home tomorrow Chronic right foot pain Xray showed no significant bony healing of the chronic-appearing third metatarsal fracture. Ortho on board Surgery not indicated in the acute inpatient setting as per ortho Ortho recommended weight-bear as tolerates and postop shoe. Follow up with ortho as an outpatient to discuss outpatient surgery (Please call to schedule for the follow up) (3) CHF (congestive heart failure): Acute on chronic diastolic heart failure Complaint to have a weight gain of about 17 pounds cardio on board Intravenous Lasix changed to demadex today by cardio Continue fluid restriction at 1.8L daily Output negative 14L during this admission Continue Torsemide 20mg daily Creatinine increased to 1.7 then improved to 1.02 today Will check BMP next week to monitor electrolytes and renal function Case discussed with cardiology and stable from cardiology standpoint to discharge on torsemide 20mg with K supplement MAHAMED on CKD Creatinine was noted to be 1.70 on admission Creatinine 1.02 today Monitor BMP while on diuretic Avoid nephrotoxic agents resolved (4) Supratherapeutic INR: INR noted to be more than 10 No evidence of any active bleeding Received vitamin K on admission INR 1.2 today continue coumadin follow up with the coag clinic Monitor PT/INR (5) COPD exacerbation: May have mild exacerbation of COPD Has been getting intravenous Solu-Medrol Intravenous Solu-Medrol changed to oral prednisone Continue prednisone 40mg and neb treatment Clinically stable (6) UTI (urinary tract infection): Has chronic indwelling Fontaine catheter History of recurrent UTI Has been getting Zosyn for possible infection Urine culture was not sent as UA was not suggestive of infection Blood cultures have been negative Zosyn discontinued (7) Pulmonary embolism: Did not have any DVT during last admission Has been on Coumadin for pulmonary embolism Continue Coumadin daily Monitor PT/INR in am Follow up with the coag clinic (8) Depression with anxiety: has been very anxious and agitated since he is getting wean from the narcotic On Ativan PO Continue Coumadin psych for now Denies any suicidal thought (9) Morbid obesity: Noncompliant with diet Counseling on weight lost Left ankle pain Xray of the L ankle showed no acute fracture or dislocation. Continue pain control Will arrange for home health with PT/OT Already on prednisone Elevated WBC Due to prednisone No sign infection, afebrile Continue monitor Noted to have a few blast cells and peripheral blood smear Blood smear showed no blast or schistocytes noted Stable DVT prophylaxis On Coumadin, INR 1.2 On heparin subq while INR subtherapeutic CODE STATUS FULL CODE Disposition Multidisciplinary meeting with service excellence, dietary department, psychiatrist, case management, pain management, physical therapist to help with his plan of care for the improvement of his current condition Follow up with PCP Dr. Hogna on 06/20 @ 11:05 AM Denies inpatient rehab/SNF Discharge home with home health services with PT/OT Total Time Total Time Spent Total Time Spent (In Minutes): 35 minutes Total Time Includes: Examination of the Patient, Discharge Planning, Medication Reconciliation, Communication With Other Providers and Other Discharge Plan Discharge Items Patient Disposition: Home - Home Health Services Reason For Visit: LETHARGY, CHF Discharge Diagnosis: Metabolic encephalopathy Chronic pain disorder Chronic right foot pain Acute on chronic diastolic heart failure Supratherapeutic INR COPD exacerbation Activity: Resume your previous activity Activity Comment: as tolerated Non-emergency contact: Primary Care Provider, Flux Core Welder and Urologist Call non-emergency contact if: you have any medication questions Follow-up/Referrals: Owen Hogan MD [Primary Care Provider] - Diet: Heart Healthy Addtl Attending Provider Instructions: Follow up with your primary care provider Dr. Hogan on 06/20 @ 11:05 AM Follow up with urology (Please call to schedule for the appointment) Follow up with orthopedic Dr. Gilmore (Please call [phone] to schedule for the appointment) Follow up with the coumadin clinic. (Continue monitor PT/INR) Continue physical and occupational therapy Fall precaution Ok to discharge with the fontaine Check BMP within 1 week to monitor your electrolytes and kidney function (Lab order given ) Continue MS Contin daily x 7 days, then stop ( You were supposed to have extra tablet at home when reviewed the [place] prescription drug monitoring program) If you need help to get detox, please call the drug rehab facility that was p rovided by case management If you develop any diarrhea due to opioid withdrawn, please discontinue all the stool softeners. Take the Loperamide as needed for diarrhea. Pending Studies at Discharge: No Stand-Alone Forms: My [facility] Medications and DC Order Prescriptions: New mirtazapine 15 mg Tablet 15 mg PO HS PRN (Reason: insomnia) Qty: 10 RF: 0 loperamide 2 mg Capsule 2 mg PO Q12 PRN (Reason: diarrhea) Qty: 30 RF: 0 clonidine HCl 0.1 mg tablet 0.1 mg PO Q12H PRN (Reason: Opioid withdrawn) Qty: 10 RF: 0 Continued gabapentin 300 mg Capsule 300 mg PO TID RF: 0 ondansetron 4 mg Tablet,Disintegrating 4 mg PO Q4H PRN (Reason: Nausea And Vomiting) RF: 0 polyethylene glycol 3350 [Miralax] 17 gram powder in packet 17 g PO Q24H PRN (Reason: Constipation) RF: 0 nitroglycerin [Nitrostat] 0.4 mg tablet, sublingual 0.4 mg Sublingual DIRECTED PRN (Reason: CHEST PAIN) RF: 0 docusate sodium 100 mg capsule 100 mg PO BID RF: 0 Fleet Enema 19-7 gram/118 mL Enema 133 ml MN DIRECTED PRN (Reason: Constipation) RF: 0 nystatin 100,000 unit/gram Powder 1 applic TOPICAL BID PRN (Reason: Skin Irritation) RF: 0 ipratropium-albuterol 0.5 mg-3 mg(2.5 mg base)/3 mL Solution For Nebulization 3 ml INHALATION Q4H PRN (Reason: Shortness Of Breath Or Wheezing) RF: 0 omeprazole 20 mg capsule,delayed release(DR/EC) 20 mg PO QAM RF: 0 cyclobenzaprine 10 mg Tablet 10 mg PO BID RF: 0 hydroxyzine HCl 25 mg tablet 25 mg PO QID PRN (Reason: Anxiety) RF: 0 fluticasone propionate 50 mcg/actuation spray,suspension 2 spray Intranasal QAM RF: 0 aspirin [Ecotrin Low Strength] 81 mg tablet,delayed release (DR/EC) 81 mg PO QAM RF: 0 duloxetine 60 mg capsule,delayed release(DR/EC) 60 mg PO QAM RF: 0 Spiriva with HandiHaler 18 mcg capsule, w/inhalation device 1 puff inhalation DAILY RF: 0 finasteride 5 mg tablet 5 mg PO QAM RF: 0 tamsulosin [Flomax] 0.4 mg Capsule 0.4 mg PO DAILY RF: 0 albuterol sulfate [Ventolin HFA] 90 mcg/actuation HFA aerosol inhaler 2 puff inhalation Q4H PRN (Reason: Wheezing) RF: 0 metoprolol succinate 50 mg Tablet Extended Release 24 Hr 50 mg PO BID 30 Days Qty: 60 RF: 0 isosorbide mononitrate 30 mg Tablet Extended Release 24 Hr 30 mg PO QAM 30 Days Qty: 30 RF: 0 torsemide 10 mg tablet 20 mg PO DAILY Qty: 0 RF: 0 prednisone 10 mg tablet 10 mg PO DAILY RF: 0 lidocaine 5 % adhesive patch,medicated 1 patch transdermal QAM PRN (Reason: Pain) RF: 0 warfarin [Coumadin] 5 mg tablet 5 mg PO DAILY RF: 0 lorazepam [Ativan] 1 mg tablet 1 mg PO Q12H PRN (Reason: Anxiety) RF: 0 Lactinex 1 million cell tablet,chewable 1 tab PO DAILY RF: 0 Changed potassium chloride 10 mEq tablet,ER particles/crystals 20 meq PO BID Qty: 30 RF: 0 Discontinued oxycodone 15 mg tablet 15 mg PO Q4H RF: 0 tramadol 50 mg tablet 50 mg PO Q4H PRN (Reason: Pain) Qty: 10 RF: 0 morphine 15 mg tablet extended release 15 mg PO Q12H RF: 0 Discharge Orders: Discharge Order (Routine); Ordered 06/16/19 Ordered By: Xu Pickering/Other Patient Handouts: Diabetes Automotive Service Technician Complications, Diabetes Resources, Diabetes Type 2 Coping, Diabetes Healthy Meals, Diabetes Carbs, Diabetes Exercise Benefits, Diabetes Exercise Get Started, Diabetes Manage A1C Test Admission Data Admit Date/Time: 06/13/19 19:20 Attending Provider: Xu Silvestre Admit Provider: Everardo Ibarra Primary Care Provider: Owen Hogan Other Providers: Everardo Ibarra ; Yvon Del Valle ; Dick Cardoza ; Miguel Angel Lee ; Jacob Penn ; Manuel English ; Owen Saavedra ; Berna Richardson ; Josefina Chavez ; Theron Ching ; Walker Gilmore ; Sj Sauceda ; Augustus Vasquez Other Interventions: Discharge Summary Assessment (RN) Last Done: 06/18/19 19:07 DC Date/Time DO NOT enter until pt leaves facility: 06/18/19 19:26
== END 2019-06-18 19:26 | disposition home health service (06) | DRG 291 ==
LOC: ED 19:36 → 2S 22:52 → INTOOBSV 22:52 → 2S 23:42 → SUATTDRO 06-13 19:20

== ENCOUNTER 2019-08-11 17:40 | Inpatient (IN) ==
[2019-08-11] MEDS ORDERED: VANCOMYCIN HCL 2,750 MG in SODIUM CHLORIDE 0.9% 500 ML IV ONE (17:59)
[2019-08-11] MEDS ORDERED: VANCOMYCIN CONSULT ACTIVE PRN (17:59)
[2019-08-11 18:32] LABS: Basophils # (auto) 0.02 K/uL (0-0.2); Basophils % (auto) 0.1 %; Eosinophils # (auto) 0.26 K/uL (0-0.5); Eosinophils % (auto) 1.5 %; Hematocrit (blood only) 34.3 % (42-52); Hemoglobin 10.4 g/dL (14.0-18.0); Immature Granulocytes % (auto) 0.6 %; Lymphocytes # (auto) 2.44 K/uL (1.2-3.4); Lymphocytes % (auto) 13.9 %; Mean Corpuscular Hemoglobin 23.2 pg (25-34); Mean Corpuscular Hgb Conc 30.3 g/dL (32-36); Mean Corpuscular Volume 76.4 fL (80-100); Mean Platelet Volume 9.6 fL (7.4-10.4); Monocytes # (auto) 1.16 K/uL (0.11-0.59); Monocytes % (auto) 6.6 %; Neutrophils # (auto) 13.62 K/uL (1.4-6.5); Neutrophils % (auto) 77.3 %; Platelet Count 307 K/uL (130-400); RDW Coefficient of Variation 19.5 % (11.5-14.5); Red Blood Count 4.49 M/uL (4.7-6.1)
[2019-08-11 18:49] LABS: Alanine Aminotransferase 27 U/L (12-78); Albumin Level 2.8 gm/dl (3.4-5.0); Aspartate Aminotransferase 8 U/L (15-37); BUN Creatinine Ratio 10.1 (10-20); Blood Urea Nitrogen 11 mg/dl (7-18); Calcium 9.4 mg/dl (8.5-10.1); Carbon Dioxide 28 mmol/L (21-32); Chloride 103 mmol/L (98-107); Est GFR (African American) 90.9; Est GFR (Non-African American) 78.4; Glucose 115 mg/dl (70-99); Potassium 3.6 mmol/L (3.5-5.1); Sodium 139 mmol/L (136-145)
[2019-08-11 18:54] LABS: Albumin Globulin Ratio 0.8 (0.9-2); Alkaline Phosphatase 97 U/L (45-117); Globulin 3.7 gm/dl (2.5-4.0); NT Pro B Type Natriuretic Pept 203 pg/ml (0-450); Total Protein 6.5 gm/dl (6.4-8.2); Troponin I < 0.015 ng/ml (0-0.045)
--- NOTE | 2019-08-11 19:00 | XRay Report ---
SINGLE VIEW CHEST CLINICAL HISTORY: Sepsis. FINDINGS: 3 AP, portable, upright chest radiographs are compared to chest x-ray and chest CT dated . The examination is degraded by portable technique, large body habitus, and apical lordotic positioning. The cardiomediastinal silhouette is top normal for projection. There is mild bibasilar atelectasis. The lungs and pleural spaces are otherwise clear. No pneumothorax is seen. 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 IMPRESSION: No active disease in the chest and no significant change from recent prior studies. Electronically signed by: Misael Lopez M.D. 08/11/2019 6:58 PM
[2019-08-11 19:02] LABS: Appearance Urine Clear (Clear); Bacteria Urine Automated 1+ (Negative); Bilirubin Urine Negative (Negative); Blood Urine Trace (Negative); Color Urine Dark Yellow; Epithelial Cell Urine Auto 20-30 /lpf (0-5); Glucose Urine UA Negative (Negative); Ketones Urine Trace (Negative); Leukocyte Esterase Urine 1+ (Negative); Nitrite Urine Negative (Negative); Protein Urine Negative (Negative); Specific Gravity Urine 1.023 (1.000-1.030); Urobilinogen Urine Negative (Negative); pH Urine 6.5 (4.5-7.5)
[2019-08-11 19:05] LABS: INR 1.3 (0.9-1.1); Partial Thromboplastin Ratio 1.1; Partial Thromboplastin Time 28.6 Seconds (21.0-31.0); Prothrombin Time 13.5 Seconds (9.0-12.0)
[2019-08-11] MEDS ORDERED: ONDANSETRON INJ 2 MG/ML 2 ML VIAL IV STA (19:12)
[2019-08-11] MEDS ORDERED: LACTATED RINGER'S 1,000 ML IV ONE (20:06)
[2019-08-11 20:14] LABS: Magnesium 1.7 mg/dl (1.8-2.4)
[2019-08-11] MEDS ORDERED: ALBUMIN 25% 50 ML IV ONE (20:22)
[2019-08-11] MEDS ORDERED: MAGNESIUM SULFATE / D5W 1 GM/100 ML BAG IV ONE ×2 (21:27→23:45)
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
[2019-08-11] MEDS ORDERED: CEFEPIME 20 ML IV STA (21:32)
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
--- NOTE | 2019-08-11 22:44 | XRay Report ---
LEFT TIBIA AND FIBULA 2 VIEWS CLINICAL HISTORY: Left leg swelling. FINDINGS: AP and lateral views of the left tibia and fibula are compared to study dated 12/09/2018. Th e skeletal structures are well mineralized. No fracture is seen. The knee and ankle joints are grossl y maintained. There is a dorsal calcaneal enthesophyte. Soft tissue edema is noted in the left calf. Small phleboliths are noted in the pretibial region. IMPRESSION: Soft tissue swelling with no acute bony abnormality identified. Electronically signed by: Misael Lopez M.D. 08/11/2019 10:43 PM
--- NOTE | 2019-08-11 22:45 | XRay Report ---
RIGHT TIBIA AND FIBULA 2 VIEWS CLINICAL HISTORY: Right leg swelling. FINDINGS: AP and lateral views of the right tibia and fibula are compared to study dated 03/01/2016. T he skeletal structures are well mineralized. No fracture is seen. The knee and ankle joints are gross ly maintained. Soft tissue edema is noted in the right calf. Small phleboliths are noted in the preti bial region. IMPRESSION: Soft tissue swelling with no acute bony abnormality identified. Electronically signed by: Misael Lopez M.D. 08/11/2019 10:44 PM
[2019-08-11] MEDS ORDERED: XOPENEX/ATROVENT 1.25mg/0.5MG NEB COMBO NEB PRN (22:55)
[2019-08-11] MEDS ORDERED: XOPENEX/ATROVENT 1.25mg/0.5MG NEB COMBO NEB STA (22:55)
--- NOTE | 2019-08-11 22:59 | Ultrasound Report ---
ULTRASOUND ABDOMEN ASCITES CHECK CLINICAL HISTORY: Abdominal distention. COMPARISON STUDY: Abdominal CT dated 08/01/2019. FINDINGS: Real-time grayscale sonography of all 4 quadrants of the abdomen is performed to assess for abdominal ascites. No abdominal ascites is seen. Survey images of the liver show evidence of hepatom egaly and hepatic steatosis. IMPRESSION: No abdominal ascites is identified. Electronically signed by: Misael Lopez M.D. 08/11/2019 10:57 PM
--- NOTE | 2019-08-11 22:59 | Ultrasound Report ---
ULTRASOUND BILATERAL LOWER EXTREMITY VENOUS CLINICAL HISTORY: Lower extremity edema. COMPARISON STUDY: Bilateral lower extremity venous ultrasound dated 05/24/2019. TECHNIQUE: Real-time, grayscale, and color Doppler sonography of the deep veins of the right and left lower extremity was performed from the inguinal crease to the calf. Compression and augmentation wer e utilized. The examination is degraded by large body habitus. FINDINGS: There is no sonographic evidence of deep venous thrombosis identified in the right or left lower extremity. The common femoral, superficial femoral, and popliteal veins are patent and normally compressible bilaterally. The greater saphenous vein and the profunda femoris vein at the junction w ith the common femoral vein are clear in both legs. The visualized calf veins are patent bilaterally. IMPRESSION: There is no sonographic evidence of deep venous thrombosis identified in the right or lef t lower extremity. Electronically signed by: Misael Lopez M.D. 08/11/2019 10:57 PM
[2019-08-11] MEDS ORDERED: LEVALBUTEROL 1.25MG/0.5ML NEB INH PRN (23:00)
[2019-08-11] MEDS ORDERED: IPRATROPIUM BROMIDE NEB SOLN 0.02% 2.5 ML VIAL INH PRN (23:00)
[2019-08-11] MEDS ORDERED: LEVALBUTEROL 1.25MG/0.5ML NEB INH STA (23:02)
[2019-08-11] MEDS ORDERED: IPRATROPIUM BROMIDE NEB SOLN 0.02% 2.5 ML VIAL INH STA (23:02)
[2019-08-11] MEDS ORDERED: NITROGLYCERIN SL 0.4 MG/TAB TAB SL PRN (23:06)
[2019-08-11] MEDS ORDERED: GLUCOSE 10 TABS/TUBE PO PRN (23:06)
[2019-08-11] MEDS ORDERED: GLUCOSE 40% GEL 15 GM TUBE PO PRN (23:06)
[2019-08-11] MEDS ORDERED: INSULIN GLARGINE SOLOSTAR 100 UNITS/ML 3 ML PEN SC STA (23:06)
[2019-08-11] MEDS ORDERED: POTASSIUM CHLORIDE 20 MEQ TABCR PO STA (23:06)
[2019-08-11] MEDS ORDERED: CARBOHYDRATES FOR HYPOGLYCEMIA PO PRN (23:06)
[2019-08-11] MEDS ORDERED: Heparin IV Standard *NO* Bolus STA (23:06)
[2019-08-11] MEDS ORDERED: GLUCAGON FOR INJ 1 MG VIAL SQ PRN (23:06)
[2019-08-11] MEDS ORDERED: DEXTROSE 50% 50 ML SYRINGE IV PRN (23:06)
[2019-08-11] MEDS ORDERED: FLUTICASONE FUROATE INTNAS PRN (23:06)
[2019-08-11] MEDS ORDERED: DAPTOMYCIN CONSULT ACTIVE PRN (23:39)
[2019-08-11] MEDS ORDERED: CEFEPIME CONSULT ACTIVE PRN (23:46)
[2019-08-12] MEDS ORDERED: ALBUMIN 25% 50 ML with FUROSEMIDE 80 MG IV ONE
[2019-08-12] MEDS: INSULIN ASPART 100 UNITS/ML 3 ML PEN SC SCH ×5 (00:09→21:07)
[2019-08-12] MEDS: HEPARIN SODIUM/DEXTROSE 25,000 UNITS/500 ML BAG IV SCH ×3 (00:12→21:49)
[2019-08-12] MEDS: METOPROLOL SUCC 50MG EXT REL TAB PO SCH ×3 (00:33→21:09)
[2019-08-12] MEDS: OXYCODONE HCL IR 5 MG TAB (IMMEDIATE RELEASE) PO PRN ×5 (01:18→23:47)
[2019-08-12] MEDS: DAPTOmycin 525 MG in SYRINGE 0 ML IV SCH (03:07)
[2019-08-12] MEDS: TRAMADOL HCL 50 MG TABLET PO PRN ×3 (03:12→16:43)
[2019-08-12 06:31] LABS: Basophils # (auto) 0.04 K/uL (0-0.2); Basophils % (auto) 0.3 %; Eosinophils # (auto) 0.32 K/uL (0-0.5); Hematocrit (blood only) 34.1 % (42-52); Hemoglobin 10.4 g/dL (14.0-18.0); Immature Granulocytes # (auto) 0.08 K/uL (0.00-0.02); Immature Granulocytes % (auto) 0.5 %; Lymphocytes # (auto) 2.28 K/uL (1.2-3.4); Lymphocytes % (auto) 14.6 %; Mean Corpuscular Hemoglobin 23.2 pg (25-34); Mean Corpuscular Hgb Conc 30.5 g/dL (32-36); Mean Corpuscular Volume 75.9 fL (80-100); Mean Platelet Volume 9.7 fL (7.4-10.4); Monocytes # (auto) 1.24 K/uL (0.11-0.59); Monocytes % (auto) 7.9 %; Neutrophils # (auto) 11.71 K/uL (1.4-6.5); Neutrophils % (auto) 74.7 %; Platelet Count 284 K/uL (130-400); RDW Coefficient of Variation 19.4 % (11.5-14.5); RDW Standard Deviation 53.5 fL (36.4-46.3); Red Blood Count 4.49 M/uL (4.7-6.1); White Blood Count 15.67 K/uL (4.8-10.8)
[2019-08-12 07:01] LABS: INR 1.7 (0.9-1.1); Partial Thromboplastin Ratio 2.4; Prothrombin Time 17.2 Seconds (9.0-12.0)
[2019-08-12 07:02] LABS: Partial Thromboplastin Time 64.1 Seconds (21.0-31.0)
[2019-08-12 07:03] LABS: Blood Urea Nitrogen 10 mg/dl (7-18); Calcium 8.8 mg/dl (8.5-10.1); Carbon Dioxide 28 mmol/L (21-32); Chloride 103 mmol/L (98-107); Est GFR (Non-African American) 75.1; Glucose 137 mg/dl (70-99); Potassium 3.7 mmol/L (3.5-5.1); Sodium 136 mmol/L (136-145)
[2019-08-12 07:08] LABS: Chol HDL Ratio 3; Cholesterol 127 mg/dl (0-200); HDL Cholesterol 50 mg/dl; LDL Cholesterol Calculated 53 mg/dl; Triglycerides 122 mg/dl (0-150); Troponin I < 0.015 ng/ml (0-0.045); VLDL Cholesterol 24 mg/dl
[2019-08-12] MEDS: MoRPHine SULFATE CR 15 MG TABCR PO SCH ×3 (08:47→21:05)
[2019-08-12] MEDS: DOCUSATE SODIUM 100 MG CAP PO SCH ×2 (08:48→21:08)
[2019-08-12] MEDS: TAMSULOSIN HCL 0.4 MG CAP PO SCH (08:48)
[2019-08-12] MEDS: NICOTINE 21 MG/24 HR TDSY TD SCH ×2 (08:48)
[2019-08-12] MEDS: POTASSIUM CHLORIDE 20 MEQ TABCR PO SCH ×2 (08:48→21:10)
[2019-08-12] MEDS: DULOXETINE HCL 60 MG CAP PO SCH (08:48)
[2019-08-12] MEDS: PANTOprazole 40 MG TAB PO SCH (08:50)
[2019-08-12] MEDS: ISOSORBIDE MONO EXTENDED REL 30 MG TABCR PO SCH (08:50)
[2019-08-12] MEDS: SPIRONOLACTONE 25 MG TAB PO SCH (08:50)
[2019-08-12] MEDS: ASPIRIN 81 MG ECTAB PO SCH (08:50)
[2019-08-12] MEDS: FINASTERIDE 5 MG TAB PO SCH (08:50)
[2019-08-12] MEDS: FUROSEMIDE 80 MG in SYRINGE 0 ML IV SCH ×2 (08:51→16:44)
[2019-08-12] MEDS: FLUTICASONE PROPIONATE NA SPR 16 GM BTL SCH (08:51)
[2019-08-12] MEDS: predniSONE 5 MG TAB PO SCH (08:51)
[2019-08-12] MEDS: GABAPENTIN 300 MG CAP PO SCH ×3 (08:51→21:08)
[2019-08-12] MEDS: INSULIN GLARGINE SOLOSTAR 100 UNITS/ML 3 ML PEN SC SCH (08:52)
[2019-08-12] MEDS: TIOTROPIUM BROMIDE 5 PUFF/90 MCG INH INH SCH (08:53)
[2019-08-12] MEDS ORDERED: FUROSEMIDE 40 MG/4 ML VIAL IV SCH (09:00)
[2019-08-12] MEDS ORDERED: POTASSIUM CHLORIDE 20 MEQ TABCR PO SCH (09:00)
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
[2019-08-12] MEDS: CEFEPIME 2,000 MG in SYRINGE 7.5 ML IV SCH ×2 (10:39→21:11)
[2019-08-12] MEDS ORDERED: POTASSIUM CHLORIDE 20 MEQ TABCR PO ONE (18:15)
[2019-08-12] MEDS: MAGNESIUM SULFATE / D5W 1 GM/100 ML BAG IV SCH ×2 (18:32→19:46)
[2019-08-12] MEDS ORDERED: WARFARIN SOD 5 MG TAB PO ONE (18:34)
--- NOTE | 2019-08-12 18:34 | Hospitalist Progress Note ---
Date of Service August 12, 2019 Assessment & Plan (1) Sepsis: Likely secondary to leg cellulitis. Improved on antibiotics and appears resuscitated from a sepsis standpoint. (2) Acute right-sided congestive heart failure: Cardiology consulted and agrees with diuresis efforts. Continue Lasix 80 mg IV twice daily. Monitor BMP and replace magnesium and potassium as needed. Hand cramping may be related to this so we will give electrolyte replacement again now. Continue spironolactone per home regimen. Daily standing weights. Strict I/Os. (3) Cellulitis of both lower extremities: Continue Dapto and cefepime cultures and clinical improvement. Wound care nurse consult. (4) Anemia: Chronic and at baseline. Continue to monitor periodically. (5) Opioid dependence: Continue home regimen of morphine 15 mg p.o. twice daily with oxycodone for breakthrough pain. There is a goal of no increase in narcotics during hospitalization as the patient has a significant history of drug-seeking behavior. Will need to find other nonnarcotic ways to treat his pain. (6) COPD (chronic obstructive pulmonary disease): Chronic, appears stable. He is steroid dependent. Continue Spiriva, Breo and prednisone. (7) Chronic chest pain: Chest pain reported. Troponin trend was negative. At least 2 EKGs with sinus tachycardia and no evidence of acute ischemia. Patient has a history of chronic chest pain. Continue supportive care. (8) Morbid obesity: Advised lifestyle changes. (9) Depression with anxiety: Likely result of multiple comorbidities, including chronic pain with chronic narcotic use. Continue home Cymbalta. (10) DM type 2 (diabetes mellitus, type 2): Glucose is controlled. Continue basal bolus insulin with carb coverage while hospitalized. Repeat A1c. (11) History of pulmonary embolism: Subtherapeutic on Coumadin with an INR 1.7 on admission. Coumadin initially held pending procedure, however this does not appear likely. Restarted Coumadin. Continue heparin drip while hospitalized until INR is at goal of 2-3. Daily INR. (12) Tobacco abuse: Advised to quit smoking. Continue NicoDerm. Contemplative phase. (13) DVT prophylaxis: Heparin drip/Coumadin Full code Disposition-pending clinical improvement. PT/OT to assess safety to go home. Mala Grace DO [facility] Hospitalist Subjective 49-year-old man admitted with 30 pound weight gain. In the process of weight gain his legs were more swollen and wounds resulted on the anterior lower leg which appear superinfected. He denies any fevers or chills. He is tolerating p.o. He is feeling better than on admission but is still swollen. He does report some cramping in his hands, he thinks possibly secondary to the diuresis efforts. He denies any chest pain. Review of Systems Review of Systems: All systems reviewed & are unremarkable except as noted in HPI & below Physical Exam Physical Exam: CONSTITUTIONAL: obese, vitals as above, generally well- appearing EYES: normal conjunctivae, no scleral icterus ENT: MMM NECK: obese RESPIRATORY: clear to auscultation bilaterally, no crackles, rales or wheezes, normal respiratory effort CARDIOVASCULAR: regular rate and rhythm, S1 and 2 heard without murmurs, gallops or rubs, no peripheral edema, JVD difficult to ascertain given neck obesity GASTROINTESTINAL: soft, nontender, nondistended, protuberant abdomen MUSCULOSKELETAL: strength 5/5 throughout, head is normocephalic and atraumatic SKIN: warm and dry, open draining wounds bilateral lower extremities on anterior surface. Covered with OptiFoam. Some surrounding erythema. NEUROLOGIC: No facial palsy, no dysarthria. CN 2-12 grossly intact, normal cognition, no gross focal deficit. PSYCHIATRIC: alert cooperative and oriented to person, place and time. Results & Data Vital Signs (Past 12 Hours) Vital Signs Temp Pulse Pulse Resp BP Pulse Ox 08/12/19 15:32 94 H 08/12/19 15:30 37.1 C 92 H 20 123/77 93 08/12/19 11:23 37.1 C 99 H 22 124/58 L 94 08/12/19 07:28 38 C H 110 H 20 110/67 91 Laboratory Results Short CBC 08/12/19 Range/Units 06:12 WBC 15.67 H (4.8-10.8) K/uL Hgb 10.4 L (14.0-18.0) g/dL Hct 34.1 L (42-52) % Plt Count 284 (130-400) K/uL BMP 08/11/19 08/12/19 18:19 06:12 Sodium 139 136 Potassium 3.6 3.7 Chloride 103 103 Carbon Dioxide 28 28 BUN 11 10 Creatinine 1.10 1.14 Glucose 115 H 137 H Calcium 9.4 8.8 Cardiac Enzymes 08/11/19 08/12/19 Range/Units 18:19 06:12 Troponin I < 0.015 < 0.015 (0-0.045) ng/ml Liver Function 08/11/19 Range/Units 18:19 Total Bilirubin 1.0 (0.2-1) mg/dl AST 8 L (15-37) U/L ALT 27 (12-78) U/L Alkaline Phosphatase 97 (45-117) U/L Albumin 2.8 L (3.4-5.0) gm/dl Urine 08/11/19 Range/Units 18:25 Urine Color Dark Yellow Urine Appearance Clear (Clear) Urine pH 6.5 (4.5-7.5) Ur Specific [place] 1.023 (1.000-1.030) Urine Protein Negative (Negative) Urine Glucose (UA) Negative (Negative) Medications Administered Current Inpatient Medications Aspirin (Ecotrin Ectab) 81 mg PO [facility] Stop: 09/11/19 08:59 Last Admin: 08/12/19 08:50 Dose: 81 mg Documented by: Dextrose (Dextrose 50%) 25 - 50 ml IV UD PRN; Protocol PRN Reason: Hypoglycemia Protocol Stop: 09/10/19 23:05 Docusate Sodium (Colace) 100 mg PO BID [facility] Stop: 09/11/19 08:59 Last Admin: 08/12/19 08:48 Dose: 100 mg Documented by: Duloxetine HCl (Cymbalta) 60 mg PO [facility] Stop: 09/11/19 08:59 Last Admin: 08/12/19 08:48 Dose: 60 mg Documented by: Finasteride (Proscar) 5 mg PO [facility] Stop: 09/11/19 08:59 Last Admin: 08/12/19 08:50 Dose: 5 mg Documented by: Fluticasone Propionate (Flonase) 2 sprays NA [facility] Stop: 09/11/19 08:59 Last Admin: 08/12/19 08:51 Dose: 2 sprays Documented by: Gabapentin (Neurontin) 300 mg PO TID [facility] Stop: 09/11/19 08:59 Last Admin: 08/12/19 13:19 Dose: 300 mg Documented by: Glucagon (Glucagen) 1 mg SQ UD PRN; Protocol PRN Reason: Hypoglycemia Protocol Stop: 09/10/19 23:05 Glucose (Glucose 40%) 15 - 30 gm PO UD PRN; Protocol PRN Reason: Hypoglycemia Protocol Stop: 09/10/19 23:05 Glucose (Dex4 Glucose) 4 - 8 tabs PO UD PRN; Protocol PRN Reason: Hypoglycemia Protocol Stop: 09/10/19 23:05 Hydroxyzine HCl (Vistaril) 25 mg PO QID PRN PRN Reason: Anxiety Stop: 09/10/19 23:05 Last Admin: 08/12/19 08:49 Dose: 25 mg Documented by: Promethazine HCl 12.5 mg/ (Sodium Chloride) 50.5 mls @ 202 mls/hr IV Q6H PRN PRN Reason: Nausea And Vomiting Stop: 09/10/19 23:05 Heparin Sodium/Dextrose (Heparin Sodium/Dextrose) 25,000 units in 500 mls @ 48 mls/hr IV .[id number] EMPERATRIZ; Protocol Stop: 09/10/19 23:05 Last Admin: 08/12/19 11:20 Dose: 2,400 units/hr, 48 mls/hr Documented by: Furosemide 80 mg/ Syringe 8 mls @ 4 mls/min IV BID17 [facility] Stop: 08/13/19 17:01 Last Admin: 08/12/19 16:44 Dose: 4 mls/min Documented by: Daptomycin 525 mg/ Syringe 10.5 mls @ 5.25 mls/min IV Q24H [facility]; Protocol Stop: 08/22/19 03:59 Last Admin: 08/12/19 03:07 Dose: 5.25 mls/min Documented by: Cefepime HCl 2,000 mg/ Syringe 20 mls @ 5 mls/min IV Q12H [facility]; Protocol Stop: 08/22/19 09:59 Last Admin: 08/12/19 10:39 Dose: 5 mls/min Documented by: Magnesium Sulfate/Dextrose (Magnesium Sulfate / D5w) 1 gm in 100 mls @ 100 mls/hr IV Q1H [facility] Stop: 08/12/19 20:14 Last Admin: 08/12/19 18:32 Dose: 100 mls/hr Documented by: Insulin Aspart (Novolog Flexpen) 0 units SC ACHS [facility] Stop: 09/10/19 23:29 Last Admin: 08/12/19 17:20 Dose: 5 units Documented by: Insulin Glargine (Lantus Solostar Pen) 5 units SC DAILY [facility] Stop: 09/11/19 08:59 Last Admin: 08/12/19 08:52 Dose: 5 units Documented by: Ipratropium [place] (Atrovent 0.02% 0.5mg/2.5ml) 0.5 mg INH Q4H PRN PRN Reason: SOB/WHEEZING Stop: 09/10/19 22:59 Isosorbide Mononitrate (Imdur Extended Rel) 30 mg PO DAILY [facility] Stop: 09/11/19 08:59 Last Admin: 08/12/19 08:50 Dose: 30 mg Documented by: Levalbuterol HCl (Xopenex 1.25mg/0.5ml Neb) 1.25 mg INH Q4H PRN PRN Reason: SOB/WHEEZING Stop: 09/10/19 22:59 Lorazepam (Ativan) 1 mg PO TID PRN PRN Reason: anxiety Stop: 09/10/19 23:18 Metoprolol Succinate (Toprol Xl) 50 mg PO BID [facility] Stop: 09/10/19 20:44 Last Admin: 08/12/19 08:47 Dose: 50 mg Documented by: Miscellaneous (Remove Nicoderm Patch) 1 ea N/A DAILY@0859 [facility] Stop: 09/11/19 08:58 Last Admin: 08/12/19 08:52 Dose: 1 ea Documented by: Miscellaneous (Order Awaiting Action) 1 ea N/A QS [facility] Stop: 09/11/19 00:00 Last Admin: 08/12/19 15:36 Dose: Not Given Documented by: Miscellaneous (Carbohydrates For Hypoglycemia) 15 - 30 gm PO UD PRN PRN Reason: Hypoglycemia Protocol Stop: 09/10/19 23:05 Miscellaneous Information (Cefepime Consult Active) 1 ea N/A UD PRN PRN Reason: Consult Stop: 09/10/19 23:45 Miscellaneous Information (Consult) 1 ea N/A UD PRN PRN Reason: Consult Stop: 09/10/19 23:38 Morphine Sulfate (Ms Contin) 15 mg PO BID [facility] Stop: 08/25/19 23:14 Last Admin: 08/12/19 08:47 Dose: 15 mg Documented by: Nicotine (Nicoderm Cq) 21 mg TD QAM [facility] Stop: 09/10/19 22:54 Last Admin: 08/12/19 08:48 Dose: 21 mg Documented by: Nitroglycerin (Nitrostat) 0.4 mg SL UD PRN PRN Reason: Chest Pain Stop: 09/10/19 23:05 Oxycodone HCl (Roxicodone Immediate Rel) 15 mg PO Q4H PRN PRN Reason: Pain Stop: 08/25/19 23:05 Last Admin: 08/12/19 13:24 Dose: 15 mg Documented by: Pantoprazole Sodium (Protonix) 40 mg PO QAM [facility] Stop: 09/11/19 08:59 Last Admin: 08/12/19 08:50 Dose: 40 mg Documented by: Potassium Chloride (Klor-Con M20) 20 meq PO BID [facility] Stop: 09/11/19 08:59 Last Admin: 08/12/19 08:48 Dose: 20 meq Documented by: Prednisone (Prednisone) 5 mg PO DAILY [facility] Stop: 09/11/19 08:59 Last Admin: 08/12/19 08:51 Dose: 5 mg Documented by: Spironolactone (Aldactone) 25 mg PO DAILY [facility] Stop: 09/11/19 08:59 Last Admin: 08/12/19 08:50 Dose: 25 mg Documented by: Tamsulosin HCl (Flomax) 0.4 mg PO DAILY [facility] Stop: 09/11/19 08:59 Last Admin: 08/12/19 08:48 Dose: 0.4 mg Documented by: Tiotropium [place] (Spiriva) 1 puffs INH DAILY [facility] Stop: 09/11/19 08:59 Last Admin: 08/12/19 08:53 Dose: 1 puffs Documented by: Tramadol HCl (Ultram) 50 mg PO Q4 PRN PRN Reason: Pain Stop: 09/10/19 23:05 Last Admin: 08/12/19 16:43 Dose: 50 mg Documented by: (1) Anemia Anemia type: unspecified type Qualified Code(s): D64.9 - Anemia, unspecified (2) COPD (chronic obstructive pulmonary disease) COPD type: emphysema Emphysema type: unspecified Qualified Code(s): J43.9 - Emphysema, unspecified (3) Sepsis Sepsis acute organ dysfunction status: unspecified Sepsis type: sepsis due to unspecified organism Qualified Code(s): A41.9 - Sepsis, unspecified organism
[2019-08-12] MEDS: LORazepam 1 MG TAB PO PRN (21:53)
[2019-08-13] MEDS: TRAMADOL HCL 50 MG TABLET PO PRN ×6 (02:00→23:58)
[2019-08-13] MEDS: DAPTOmycin 525 MG in SYRINGE 0 ML IV SCH (04:12)
[2019-08-13] MEDS: OXYCODONE HCL IR 5 MG TAB (IMMEDIATE RELEASE) PO PRN ×5 (04:22→21:49)
[2019-08-13 07:02] LABS: INR 2.3 (0.9-1.1); Prothrombin Time 21.9 Seconds (9.0-12.0)
[2019-08-13 07:24] LABS: BUN Creatinine Ratio 14.1 (10-20); Calcium 9.3 mg/dl (8.5-10.1); Creatinine Clr Calc Pharmacy 147.3 ml/min; Est GFR (African American) 88.9; Est GFR (Non-African American) 76.7; Magnesium 2.5 mg/dl (1.8-2.4); Potassium 3.9 mmol/L (3.5-5.1)
[2019-08-13 07:37] LABS: Basophils # (auto) 0.03 K/uL (0-0.2); Basophils % (auto) 0.2 %; Eosinophils # (auto) 0.39 K/uL (0-0.5); Hematocrit (blood only) 32.6 % (42-52); Immature Granulocytes # (auto) 0.06 K/uL (0.00-0.02); Immature Granulocytes % (auto) 0.5 %; Lymphocytes # (auto) 2.23 K/uL (1.2-3.4); Lymphocytes % (auto) 17.2 %; Mean Corpuscular Hemoglobin 23.3 pg (25-34); Mean Corpuscular Hgb Conc 30.7 g/dL (32-36); Mean Platelet Volume 9.8 fL (7.4-10.4); Monocytes # (auto) 0.97 K/uL (0.11-0.59); Monocytes % (auto) 7.5 %; Neutrophils # (auto) 9.25 K/uL (1.4-6.5); Neutrophils % (auto) 71.6 %; Platelet Count 228 K/uL (130-400); RDW Coefficient of Variation 19.1 % (11.5-14.5); RDW Standard Deviation 52.7 fL (36.4-46.3); Red Blood Count 4.29 M/uL (4.7-6.1); White Blood Count 12.93 K/uL (4.8-10.8)
[2019-08-13] MEDS: GABAPENTIN 300 MG CAP PO SCH ×3 (08:10→20:56)
[2019-08-13] MEDS: FUROSEMIDE 80 MG in SYRINGE 0 ML IV SCH ×2 (08:10→17:21)
[2019-08-13] MEDS: FINASTERIDE 5 MG TAB PO SCH (08:11)
[2019-08-13] MEDS: SPIRONOLACTONE 25 MG TAB PO SCH (08:11)
[2019-08-13] MEDS: NICOTINE 21 MG/24 HR TDSY TD SCH (08:11)
[2019-08-13] MEDS: DOCUSATE SODIUM 100 MG CAP PO SCH ×2 (08:11→20:54)
[2019-08-13] MEDS: DULOXETINE HCL 60 MG CAP PO SCH (08:11)
[2019-08-13] MEDS: METOPROLOL SUCC 50MG EXT REL TAB PO SCH ×2 (08:12→20:56)
[2019-08-13] MEDS: FLUTICASONE PROPIONATE NA SPR 16 GM BTL SCH (08:12)
[2019-08-13] MEDS: PANTOprazole 40 MG TAB PO SCH (08:12)
[2019-08-13] MEDS: predniSONE 5 MG TAB PO SCH (08:12)
[2019-08-13] MEDS: POTASSIUM CHLORIDE 20 MEQ TABCR PO SCH ×2 (08:13→17:44)
[2019-08-13] MEDS: ISOSORBIDE MONO EXTENDED REL 30 MG TABCR PO SCH (08:13)
[2019-08-13] MEDS: TIOTROPIUM BROMIDE 5 PUFF/90 MCG INH INH SCH (08:14)
[2019-08-13] MEDS: TAMSULOSIN HCL 0.4 MG CAP PO SCH (08:14)
[2019-08-13] MEDS: ASPIRIN 81 MG ECTAB PO SCH (08:14)
[2019-08-13] MEDS: MoRPHine SULFATE CR 15 MG TABCR PO SCH ×2 (08:24→20:54)
[2019-08-13] MEDS: INSULIN GLARGINE SOLOSTAR 100 UNITS/ML 3 ML PEN SC SCH (08:25)
[2019-08-13] MEDS: HEPARIN SODIUM/DEXTROSE 25,000 UNITS/500 ML BAG IV SCH (08:25)
[2019-08-13] MEDS: INSULIN ASPART 100 UNITS/ML 3 ML PEN SC SCH ×4 (08:27→20:55)
[2019-08-13] MEDS ORDERED: HEPARIN IV BOLUS 10,000 UNITS in SYRINGE 0 ML IV ONE (08:45)
[2019-08-13] MEDS: CEFEPIME 2,000 MG in SYRINGE 7.5 ML IV SCH ×2 (10:09→20:55)
--- NOTE | 2019-08-13 10:09 | Cardiology Progress Note ---
Date of Service August 13, 2019 Assessment & Plan (1) Hypoventilation associated with obesity: (2) Morbid obesity: (3) Chronic right heart failure: The patient has lost 5 kg weight after large diuresis. I would continue the current management. Subjective Patient has no new cardiac complaints. He had an uneventful night. Review of Systems Review of Systems: All systems reviewed & are unremarkable except as noted in HPI & below Nothing additional to add. Physical Exam Physical Exam: General: Morbidly obese Head: normocephalic, no masses, lesions, tenderness or abnormalities Eyes: conjunctiva are pink and non-injected, sclera clear Neck: supple, no adenopathy, no bruits, normal jugular venous pulse, no hepatojugular reflux Chest: normal shape and normal respiratory effort Lungs: clear to auscultation and percussion Cardiac Exam: - regular rate & rhythm, no murmurs gallops or rubs - normal S1, normal S2 Pulses: 2(+) throughout Abdomen: abdomen soft, non-tender, no abnormal masses and no hepatosplenomegaly Musculoskeletal: no gait disturbance, no joint inflammation, no deforming arthritis Extremities: Edema of the lower extremities Neuro: grossly normal exam Results & Data Vital Signs (Past 12 Hours) Vital Signs Temp Pulse Pulse Resp BP BP Pulse Ox 08/13/19 08:00 85 08/13/19 07:19 36.7 C 83 20 134/62 90 08/13/19 05:00 36.7 C 81 22 103/64 94 08/12/19 23:45 86 08/12/19 23:35 36.6 C 90 18 113/63 93 Pulse Ox 08/13/19 08:00 08/13/19 07:19 08/13/19 05:00 08/12/19 23:45 93 08/12/19 23:35 Laboratory Results Laboratory Results - last 24 hr 08/12/19 08/12/19 08/12/19 11: 16:05 20:30 WBC RBC Hgb Hct MCV MCH MCHC RDW Std Deviation RDW Coeff of Megan Plt Count MPV Immature Gran % (Auto) Neut % (Auto) Lymph % (Auto) [place] % (Auto) Eos % (Auto) Baso % (Auto) Immature Gran # (Auto) Neut # (Auto) Lymph # (Auto) [place] # (Auto) Eos # (Auto) Baso # (Auto) PT INR Sodium Potassium Chloride Carbon Dioxide Anion Gap BUN Creatinine Est Cr Clr Drug Dosing Est GFR ( Amer) Est GFR (Non-Af Amer) BUN/Creatinine Ratio Glucose POC Glucose 182 H 140 H 197 H Estimat Average Glucose Hemoglobin A1c Calcium Magnesium 08/13/19 08/13/19 08/13/19 06:29 06:29 06:37 WBC 12.93 H RBC 4.29 L Hgb 10.0 L Hct 32.6 L MCV 76.0 L MCH 23.3 L MCHC 30.7 L RDW Std Deviation 52.7 H RDW Coeff of Megan 19.1 H Plt Count 228 MPV 9.8 Immature Gran % (Auto) 0.5 Neut % (Auto) 71.6 Lymph % (Auto) 17.2 [place]chran % (Auto) 7.5 Eos % (Auto) 3.0 Baso % (Auto) 0.2 Immature Gran # (Auto) 0.06 H Neut # (Auto) 9.25 H Lymph # (Auto) 2.23 [place]ran # (Auto) 0.97 H Eos # (Auto) 0.39 Baso # (Auto) 0.03 PT 21.9 H INR 2.3 H Sodium 136 Potassium 3.9 Chloride 101 Carbon Dioxide 31 Anion Gap 4.0 BUN 16 D Creatinine 1.12 Est Cr Clr Drug Dosing 147.3 Est GFR ( Amer) 88.9 Est GFR (Non-Af Amer) 76.7 BUN/Creatinine Ratio 14.1 Glucose 127 H POC Glucose Estimat Average Glucose Hemoglobin A1c Calcium 9.3 Magnesium 2.5 H 08/13/19 08/13/19 06:37 07:22 WBC RBC Hgb Hct MCV MCH MCHC RDW Std Deviation RDW Coeff of Megan Plt Count MPV Immature Gran % (Auto) Neut % (Auto) Lymph % (Auto) [place] % (Auto) Eos % (Auto) Baso % (Auto) Immature Gran # (Auto) Neut # (Auto) Lymph # (Auto) [place] # (Auto) Eos # (Auto) Baso # (Auto) PT INR Sodium Potassium Chloride Carbon Dioxide Anion Gap BUN Creatinine Est Cr Clr Drug Dosing Est GFR ( Amer) Est GFR (Non-Af Amer) BUN/Creatinine Ratio Glucose POC Glucose 141 H Estimat Average Glucose Pending Hemoglobin A1c Pending Calcium Magnesium Medications Administered Current Inpatient Medications [facility] Stop: 09/11/19 08:59 Last Admin: 08/13/19 08:14 Dose: 81 mg Documented by: Dextrose (Dextrose 50%) 25 - 50 ml IV UD PRN; Protocol PRN Reason: Hypoglycemia Protocol Stop: 09/10/19 23:05 Docusate Sodium (Colace) 100 mg PO BID [facility] Stop: 09/11/19 08:59 Last Admin: 08/13/19 08:11 Dose: 100 mg Documented by: Duloxetine HCl (Cymbalta) [facility] Stop: 09/11/19 08:59 Last Admin: 08/13/19 08:11 Dose: 60 mg Documented by: Finasteride (Proscar) [facility] Stop: 09/11/19 08:59 Last Admin: 08/13/19 08:11 Dose: 5 mg Documented by: Fluticasone Propionate (Flonase) 2 sprays NA [facility] Stop: 09/11/19 08:59 Last Admin: 08/13/19 08:12 Dose: 2 sprays Documented by: Gabapentin (Neurontin) 300 mg PO TID [facility] Stop: 09/11/19 08:59 Last Admin: 08/13/19 08:10 Dose: 300 mg Documented by: Glucagon (Glucagen) 1 mg SQ UD PRN; Protocol PRN Reason: Hypoglycemia Protocol Stop: 09/10/19 23:05 Glucose (Glucose 40%) 15 - 30 gm PO UD PRN; Protocol PRN Reason: Hypoglycemia Protocol Stop: 09/10/19 23:05 Glucose (Dex4 Glucose) 4 - 8 tabs PO UD PRN; Protocol PRN Reason: Hypoglycemia Protocol Stop: 09/10/19 23:05 Hydroxyzine HCl (Vistaril) 25 mg PO QID PRN PRN Reason: Anxiety Stop: 09/10/19 23:05 Last Admin: 08/12/19 08:49 Dose: 25 mg Documented by: Promethazine HCl 12.5 mg/ (Sodium Chloride) 50.5 mls @ 202 mls/hr IV Q6H PRN PRN Reason: Nausea And Vomiting Stop: 09/10/19 23:05 Furosemide 80 mg/ Syringe 8 mls @ 4 mls/min IV BID17 [facility] Stop: 08/13/19 17:01 Last Admin: 08/13/19 08:10 Dose: 4 mls/min Documented by: Daptomycin 525 mg/ Syringe 10.5 mls @ 5.25 mls/min IV Q24H [facility]; Protocol Stop: 08/22/19 03:59 Last Admin: 08/13/19 04:12 Dose: 5.25 mls/min Documented by: Cefepime HCl 2,000 mg/ Syringe 20 mls @ 5 mls/min IV Q12H [facility]; Protocol Stop: 08/22/19 09:59 Last Admin: 08/12/19 21:11 Dose: 5 mls/min Documented by: Insulin Aspart (Novolog Flexpen) 0 units SC ACHS [facility] Stop: 09/10/19 23:29 Last Admin: 08/13/19 08:27 Dose: 4 units Documented by: Insulin Glargine (Lantus Solostar Pen) 5 units SC DAILY [facility] Stop: 09/11/19 08:59 Last Admin: 08/13/19 08:25 Dose: 5 units Documented by: Ipratropium [place] (Atrovent 0.02% 0.5mg/2.5ml) 0.5 mg INH Q4H PRN PRN Reason: SOB/WHEEZING Stop: 09/10/19 22:59 Isosorbide Mononitrate (Imdur Extended Rel) 30 mg PO DAILY [facility] Stop: 09/11/19 08:59 Last Admin: 08/13/19 08:13 Dose: 30 mg Documented by: Levalbuterol HCl (Xopenex 1.25mg/0.5ml Neb) 1.25 mg INH Q4H PRN PRN Reason: SOB/WHEEZING Stop: 09/10/19 22:59 Lorazepam (Ativan) 1 mg PO TID PRN PRN Reason: anxiety Stop: 09/10/19 23:18 Last Admin: 08/12/19 21:53 Dose: 1 mg Documented by: Metoprolol Succinate (Toprol Xl) 50 mg PO BID [facility] Stop: 09/10/19 20:44 Last Admin: 08/13/19 08:12 Dose: 50 mg Documented by: Miscellaneous (Remove Nicoderm Patch) 1 ea N/A DAILY@0859 [facility] Stop: 09/11/19 08:58 Last Admin: 08/13/19 08:09 Dose: 1 ea Documented by: Miscellaneous (Order Awaiting Action) 1 ea N/A QS [facility] Stop: 09/11/19 00:00 Last Admin: 08/13/19 08:08 Dose: Not Given Documented by: Miscellaneous (Carbohydrates For Hypoglycemia) 15 - 30 gm PO UD PRN PRN Reason: Hypoglycemia Protocol Stop: 09/10/19 23:05 Miscellaneous Information (Cefepime Consult Active) 1 ea N/A UD PRN PRN Reason: Consult Stop: 09/10/19 23:45 Miscellaneous Information (Consult) 1 ea N/A UD PRN PRN Reason: Consult Stop: 09/10/19 23:38 Morphine Sulfate (Ms Contin) 15 mg PO BID [facility] Stop: 08/25/19 23:14 Last Admin: 08/13/19 08:24 Dose: 15 mg Documented by: Nicotine (Nicoderm Cq) 21 mg TD QAM [facility] Stop: 09/10/19 22:54 Last Admin: 08/13/19 08:11 Dose: 21 mg Documented by: Nitroglycerin (Nitrostat) 0.4 mg SL UD PRN PRN Reason: Chest Pain Stop: 09/10/19 23:05 Oxycodone HCl (Roxicodone Immediate Rel) 15 mg PO Q4H PRN PRN Reason: Pain Stop: 08/25/19 23:05 Last Admin: 08/13/19 09:20 Dose: 15 mg Documented by: Pantoprazole Sodium (Protonix) 40 mg PO QAM [facility] Stop: 09/11/19 08:59 Last Admin: 08/13/19 08:12 Dose: 40 mg Documented by: Potassium Chloride (Klor-Con M20) 20 meq PO BID [facility] Stop: 09/11/19 08:59 Last Admin: 08/13/19 08:13 Dose: 20 meq Documented by: Prednisone (Prednisone) 5 mg PO DAILY [facility] Stop: 09/11/19 08:59 Last Admin: 08/13/19 08:12 Dose: 5 mg Documented by: Spironolactone (Aldactone) 25 mg PO DAILY [facility] Stop: 09/11/19 08:59 Last Admin: 08/13/19 08:11 Dose: 25 mg Documented by: Tamsulosin HCl (Flomax) 0.4 mg PO DAILY [facility] Stop: 09/11/19 08:59 Last Admin: 08/13/19 08:14 Dose: 0.4 mg Documented by: Tiotropium [place] (Spiriva) 1 puffs INH DAILY [facility] Stop: 09/11/19 08:59 Last Admin: 08/13/19 08:14 Dose: 1 puffs Documented by: Tramadol HCl (Ultram) 50 mg PO Q4 PRN PRN Reason: Pain Stop: 09/10/19 23:05 Last Admin: 08/13/19 06:32 Dose: 50 mg Documented by: Warfarin Sodium (Coumadin) 5 mg PO DAILY@1600 [facility] Stop: 09/12/19 15:59
--- NOTE | 2019-08-13 15:21 | Hospitalist Progress Note ---
Date of Service August 13, 2019 Assessment & Plan (1) Sepsis: Likely secondary to leg cellulitis. Improved on antibiotics and appears resuscitated from a sepsis standpoint. (2) Cellulitis of both lower extremities: Continue Dapto and cefepime cultures and clinical improvement. Some worsening erythema today; will cont to monitor this closely. There is clear lymphatic destruction and this may just be the infection clearing. Wound care nurse consult. Wound cultures are pending. (3) Acute right-sided congestive heart failure: Cardiology consulted and agrees with diuresis efforts. Continue Lasix 80 mg IV twice daily. Good diuresis overnight with 4kg loss in standing weight. He is net negative. Monitor BMP and replace magnesium and potassium as needed. Will cont Mg and potassium supplementation to assist with reported hand cramping. Continue spironolactone per home regimen. Daily standing weights. Strict I/Os. Cont fluid restriction and sodium restricted diet. (4) DM type 2 (diabetes mellitus, type 2): Inpatient glucose controlled, however, A1C is 8.0. Patient is currently "diet-controlled" at home which is very inappropriate. If agreeable to this would recommend Lantus once daily and metformin at discharge with repeat A1C in 3 months. Cont basal/bolus insulin while hospitalized. Recommend annual ophthalmology screening as outpatient. Will perform annual screening for proteinuria now. Diabetic nurse educator requested to assist with education of goals. Need to be much more aggressive with getting him to goal A1C<6.5 with his age and additional comorbidities. Would also suggest outpatient screening for osteoporosis in setting of chronic steroid use. (5) Anemia: Chronic and at baseline. Continue to monitor periodically. (6) Opioid dependence: Continue home regimen of morphine 15 mg p.o. twice daily with oxycodone for breakthrough pain. There is a goal of no increase in narcotics during hospitalization as the patient has a significant history of drug-seeking behavior. Will need to find other nonnarcotic ways to treat his pain. (7) COPD (chronic obstructive pulmonary disease): Chronic, appears stable but he does have some wheezing on exam. Not in exacerbation. He is steroid dependent. Continue Spiriva, Breo and prednisone. Started some breathing treatments to help with the wheezing and optimize him. (8) Chronic chest pain: Troponin trend was negative. At least 2 EKGs with sinus tachycardia and no evidence of acute ischemia. Patient has a history of chronic chest pain. Cont Imdur per home regimen. Continue supportive care. (9) Morbid obesity: Advised lifestyle change starting with portion control. Patient is looking into options for bariatric surgery. (10) Depression with anxiety: Likely result of multiple comorbidities, including chronic pain with chronic narcotic use. Continue home Cymbalta. (11) History of pulmonary embolism: Subtherapeutic on Coumadin with an INR 1.7 on admission. Cont coumadin. Heparin drip stopped as INR now 2.3. (12) Tobacco abuse: Advised to quit smoking. Continue NicoDerm. Contemplative phase. (13) DVT prophylaxis: coumadin Full code Disposition-pending clinical improvement. PT/OT to assess safety to go home. Mala Grace DO [facility] Hospitalist Subjective Patient lost 4 kg overnight with aggressive diuresis. He feels slightly better but still about the same. He still has some hand cramping thought secondary to the diuresis but did improve with magnesium and potassium supplementation last night. Currently mag and K are normal the patient is asking for additional supplementation to help with the cramping tonight. The erythema in his legs appears to have progressed slightly worse on the right leg than the left. This could also be secondary to the clearance of the infection. Patient has significant lymphedema and reports some discomfort with this but pain is controlled with narcotic therapy. I had a long discussion with the patient regarding his obesity and methods to try and reduce his weight starting with portion control, which is the root of many of his problems including chronic pain, diabetes, leg wounds, lymphedema, etc. Patient became emotional and is determined to make a change. He takes care of his 2 young grandsons and wants to change for them, so he can be more active with them. We discussed several possible options. We also talked about quitting smoking and he verbalized intention to do this on discharge. Patient otherwise denies chest pain, shortness of breath or other issues today. Review of Systems Review of Systems: All systems reviewed & are unremarkable except as noted in HPI & below Physical Exam Physical Exam: CONSTITUTIONAL: obese, vitals as above, generally well- appearing EYES: normal conjunctivae, no scleral icterus ENT: MMM NECK: obese RESPIRATORY: clear to auscultation bilaterally, no crackles, rales or wheezes, normal respiratory effort CARDIOVASCULAR: regular rate and rhythm, S1 and 2 heard without murmurs, gallops or rubs, no peripheral edema but patient with large legs GASTROINTESTINAL: soft, nontender, nondistended, protuberant abdomen MUSCULOSKELETAL: strength 5/5 throughout, head is normocephalic and atraumatic SKIN: warm and dry, open draining wounds bilateral lower extremities on anterior surface. Covered with OptiFoam. Some surrounding erythema. NEUROLOGIC: No facial palsy, no dysarthria. CN 2-12 grossly intact, normal cognition, no gross focal deficit. PSYCHIATRIC: alert cooperative and oriented to person, place and time. Results & Data Vital Signs (Past 12 Hours) Vital Signs Temp Pulse Pulse Resp BP BP Pulse Ox 08/13/19 11:26 36.7 C 93 H 19 115/68 92 08/13/19 08:00 85 08/13/19 07:19 36.7 C 83 20 134/62 90 08/13/19 05:00 36.7 C 81 22 103/64 94 Laboratory Results Short CBC 08/13/19 Range/Units 06:37 WBC 12.93 H (4.8-10.8) K/uL Hgb 10.0 L (14.0-18.0) g/dL Hct 32.6 L (42-52) % Plt Count 228 (130-400) K/uL BMP 08/13/19 06:29 Sodium 136 Potassium 3.9 Chloride 101 Carbon Dioxide 31 BUN 16 D Creatinine 1.12 Glucose 127 H Calcium 9.3 Medications Administered Current Inpatient Medications Aspirin (Ecotrin Ectab) 81 mg PO [facility] Stop: 09/11/19 08:59 Last Admin: 08/13/19 08:14 Dose: 81 mg Documented by: Dextrose (Dextrose 50%) 25 - 50 ml IV UD PRN; Protocol PRN Reason: Hypoglycemia Protocol Stop: 09/10/19 23:05 Docusate Sodium (Colace) 100 mg PO BID [facility] Stop: 09/11/19 08:59 Last Admin: 08/13/19 08:11 Dose: 100 mg Documented by: Duloxetine HCl (Cymbalta) 60 mg PO QAM [facility] Stop: 09/11/19 08:59 Last Admin: 08/13/19 08:11 Dose: 60 mg Documented by: [facility]asteride (Proscar) [facility] [place] Stop: 09/11/19 08:59 Last Admin: 08/13/19 08:11 Dose: 5 mg Documented by: Fluticasone Propionate (Flonase) 2 sprays NA QAM [facility] Stop: 09/11/19 08:59 Last Admin: 08/13/19 08:12 Dose: 2 sprays Documented by: Gabapentin (Neurontin) 300 mg PO TID [facility] Stop: 09/11/19 08:59 Last Admin: 08/13/19 13:06 Dose: 300 mg Documented by: Glucagon (Glucagen) 1 mg SQ UD PRN; Protocol PRN Reason: Hypoglycemia Protocol Stop: 09/10/19 23:05 Glucose (Glucose 40%) 15 - 30 gm PO UD PRN; Protocol PRN Reason: Hypoglycemia Protocol Stop: 09/10/19 23:05 Glucose (Dex4 Glucose) 4 - 8 tabs PO UD PRN; Protocol PRN Reason: Hypoglycemia Protocol Stop: 09/10/19 23:05 Hydroxyzine HCl (Vistaril) 25 mg PO QID PRN PRN Reason: Anxiety Stop: 09/10/19 23:05 Last Admin: 08/12/19 08:49 Dose: 25 mg Documented by: Promethazine HCl 12.5 mg/ (Sodium Chloride) 50.5 mls @ 202 mls/hr IV Q6H PRN PRN Reason: Nausea And Vomiting Stop: 09/10/19 23:05 Furosemide 80 mg/ Syringe 8 mls @ 4 mls/min IV BID17 [facility] Stop: 08/13/19 17:01 Last Admin: 08/13/19 08:10 Dose: 4 mls/min Documented by: Daptomycin 525 mg/ Syringe 10.5 mls @ 5.25 mls/min IV Q24H EMPERATRIZ; Protocol Stop: 08/22/19 03:59 Last Admin: 08/13/19 04:12 Dose: 5.25 mls/min Documented by: Cefepime HCl 2,000 mg/ Syringe 20 mls @ 5 mls/min IV Q12H [facility]; Protocol Stop: 08/22/19 09:59 Last Admin: 08/13/19 10:09 Dose: 5 mls/min Documented by: Insulin Aspart (Novolog Flexpen) 0 units SC ACHS [facility] Stop: 09/10/19 23:29 Last Admin: 08/13/19 12:12 Dose: 6 units Documented by: Insulin Glargine (Lantus Solostar Pen) 5 units SC DAILY [facility] Stop: 09/11/19 08:59 Last Admin: 08/13/19 08:25 Dose: 5 units Documented by: Ipratropium [place] (Atrovent 0.02% 0.5mg/2.5ml) 0.5 mg INH Q4H PRN PRN Reason: SOB/WHEEZING Stop: 09/10/19 22:59 Isosorbide Mononitrate (Imdur Extended Rel) 30 mg PO DAILY [facility] Stop: 09/11/19 08:59 Last Admin: 08/13/19 08:13 Dose: 30 mg Documented by: Levalbuterol HCl (Xopenex 1.25mg/0.5ml Neb) 1.25 mg INH Q4H PRN PRN Reason: SOB/WHEEZING Stop: 09/10/19 22:59 Lorazepam (Ativan) 1 mg PO TID PRN PRN Reason: anxiety Stop: 09/10/19 23:18 Last Admin: 08/12/19 21:53 Dose: 1 mg Documented by: Metoprolol Succinate (Toprol Xl) 50 mg PO BID [facility] Stop: 09/10/19 20:44 Last Admin: 08/13/19 08:12 Dose: 50 mg Documented by: Miscellaneous (Remove Nicoderm Patch) 1 ea N/A DAILY@0859 [facility] Stop: 09/11/19 08:58 Last Admin: 08/13/19 08:09 Dose: 1 ea Documented by: Miscellaneous (Order Awaiting Action) 1 ea N/A QS [facility] Stop: 09/11/19 00:00 Last Admin: 08/13/19 15:14 Dose: Not Given Documented by: Miscellaneous (Carbohydrates For Hypoglycemia) 15 - 30 gm PO UD PRN PRN Reason: Hypoglycemia Protocol Stop: 09/10/19 23:05 Miscellaneous Information (Cefepime Consult Active) 1 ea N/A UD PRN PRN Reason: Consult Stop: 09/10/19 23:45 Miscellaneous Information (Consult) 1 ea N/A UD PRN PRN Reason: Consult Stop: 09/10/19 23:38 Morphine Sulfate (Ms Contin) 15 mg PO BID [facility] Stop: 08/25/19 23:14 Last Admin: 08/13/19 08:24 Dose: 15 mg Documented by: Nicotine (Nicoderm Cq) 21 mg TD QAM [facility] Stop: 09/10/19 22:54 Last Admin: 08/13/19 08:11 Dose: 21 mg Documented by: Nitroglycerin (Nitrostat) 0.4 mg SL UD PRN PRN Reason: Chest Pain Stop: 09/10/19 23:05 Oxycodone HCl (Roxicodone Immediate Rel) 15 mg PO Q4H PRN PRN Reason: Pain Stop: 08/25/19 23:05 Last Admin: 08/13/19 13:07 Dose: 15 mg Documented by: Pantoprazole Sodium (Protonix) 40 mg PO QAM [facility] Stop: 09/11/19 08:59 Last Admin: 08/13/19 08:12 Dose: 40 mg Documented by: Potassium Chloride (Klor-Con M20) 20 meq PO BID [facility] Stop: 09/11/19 08:59 Last Admin: 08/13/19 08:13 Dose: 20 meq Documented by: Prednisone (Prednisone) 5 mg PO DAILY [facility] Stop: 09/11/19 08:59 Last Admin: 08/13/19 08:12 Dose: 5 mg Documented by: Spironolactone (Aldactone) 25 mg PO DAILY [facility] Stop: 09/11/19 08:59 Last Admin: 08/13/19 08:11 Dose: 25 mg Documented by: Tamsulosin HCl (Flomax) 0.4 mg PO DAILY [facility] Stop: 09/11/19 08:59 Last Admin: 08/13/19 08:14 Dose: 0.4 mg Documented by: Tiotropium [place] (Spiriva) 1 puffs INH DAILY [facility] Stop: 09/11/19 08:59 Last Admin: 08/13/19 08:14 Dose: 1 puffs Documented by: Tramadol HCl (Ultram) 50 mg PO Q4 PRN PRN Reason: Pain Stop: 09/10/19 23:05 Last Admin: 08/13/19 15:15 Dose: 50 mg Documented by: Warfarin Sodium (Coumadin) 5 mg PO DAILY@1600 [facility] Stop: 09/12/19 15:59 Last Admin: 08/13/19 15:18 Dose: 5 mg Documented by: (1) Anemia Anemia type: unspecified type Qualified Code(s): D64.9 - Anemia, unspecified (2) Sepsis Sepsis acute organ dysfunction status: unspecified Sepsis type: sepsis due to unspecified organism Qualified Code(s): A41.9 - Sepsis, unspecified organism (3) COPD (chronic obstructive pulmonary disease) COPD type: emphysema Emphysema type: unspecified Qualified Code(s): J43.9 - Emphysema, unspecified
[2019-08-13] MEDS ORDERED: WARFARIN SOD 5 MG TAB PO SCH (16:00)
[2019-08-13] MEDS: MAGNESIUM OXIDE 400 MG TAB PO SCH (17:44)
[2019-08-13] MEDS: ALBUT/IPRATROP 3MG/0.5MG NEB 3 ML VIAL NEB SCH (20:29)
[2019-08-13] MEDS: LORazepam 1 MG TAB PO PRN (20:54)
[2019-08-14] MEDS: PROMETHAZINE HCL 12.5 MG in SODIUM CHLORIDE 0.9% 50 ML IV PRN (02:15)
[2019-08-14] MEDS: OXYCODONE HCL IR 5 MG TAB (IMMEDIATE RELEASE) PO PRN ×5 (02:15→23:01)
[2019-08-14] MEDS: TRAMADOL HCL 50 MG TABLET PO PRN ×3 (04:24→14:47)
[2019-08-14] MEDS: DAPTOmycin 525 MG in SYRINGE 0 ML IV SCH (04:25)
[2019-08-14 05:52] LABS: Estimated Average Glucose 183 mg/dl
[2019-08-14 07:13] LABS: Hematocrit (blood only) 32.4 % (42-52); Hemoglobin 9.9 g/dL (14.0-18.0); Mean Corpuscular Hgb Conc 30.6 g/dL (32-36); Mean Corpuscular Volume 75.3 fL (80-100); Mean Platelet Volume 9.6 fL (7.4-10.4); Platelet Count 237 K/uL (130-400); RDW Coefficient of Variation 18.8 % (11.5-14.5); RDW Standard Deviation 51.7 fL (36.4-46.3); White Blood Count 11.44 K/uL (4.8-10.8)
[2019-08-14 07:21] LABS: INR 3.2 (0.9-1.1); Prothrombin Time 30.1 Seconds (9.0-12.0)
[2019-08-14 07:45] LABS: BUN Creatinine Ratio 15.1 (10-20); Calcium 9.7 mg/dl (8.5-10.1); Est GFR (African American) 91.9; Est GFR (Non-African American) 79.3; Potassium 3.8 mmol/L (3.5-5.1)
[2019-08-14] MEDS: ALBUT/IPRATROP 3MG/0.5MG NEB 3 ML VIAL NEB SCH ×4 (07:49→19:31)
[2019-08-14] MEDS: MoRPHine SULFATE CR 15 MG TABCR PO SCH ×2 (08:47→21:23)
[2019-08-14] MEDS: PANTOprazole 40 MG TAB PO SCH (08:48)
[2019-08-14] MEDS: TAMSULOSIN HCL 0.4 MG CAP PO SCH (08:48)
[2019-08-14] MEDS: ISOSORBIDE MONO EXTENDED REL 30 MG TABCR PO SCH (08:48)
[2019-08-14] MEDS: DOCUSATE SODIUM 100 MG CAP PO SCH ×2 (08:48→21:23)
[2019-08-14] MEDS: GABAPENTIN 300 MG CAP PO SCH ×3 (08:48→21:24)
[2019-08-14] MEDS: predniSONE 5 MG TAB PO SCH (08:49)
[2019-08-14] MEDS: ASPIRIN 81 MG ECTAB PO SCH (08:49)
[2019-08-14] MEDS: FINASTERIDE 5 MG TAB PO SCH (08:49)
[2019-08-14] MEDS: DULOXETINE HCL 60 MG CAP PO SCH (08:49)
[2019-08-14] MEDS: METOPROLOL SUCC 50MG EXT REL TAB PO SCH ×2 (08:49→21:26)
[2019-08-14] MEDS: NICOTINE 21 MG/24 HR TDSY TD SCH (08:50)
[2019-08-14] MEDS: POTASSIUM CHLORIDE 20 MEQ TABCR PO SCH ×2 (08:50→16:33)
[2019-08-14] MEDS: SPIRONOLACTONE 25 MG TAB PO SCH (08:51)
[2019-08-14] MEDS: FLUTICASONE PROPIONATE NA SPR 16 GM BTL SCH (08:51)
[2019-08-14] MEDS: TIOTROPIUM BROMIDE 5 PUFF/90 MCG INH INH SCH (08:52)
[2019-08-14] MEDS: INSULIN ASPART 100 UNITS/ML 3 ML PEN SC SCH ×4 (09:32→21:24)
[2019-08-14] MEDS: INSULIN GLARGINE SOLOSTAR 100 UNITS/ML 3 ML PEN SC SCH (09:34)
[2019-08-14] MEDS ORDERED: FUROSEMIDE 40 MG in SYRINGE 0 ML IV SCH (10:00)
[2019-08-14] MEDS: CEFEPIME 2,000 MG in SYRINGE 7.5 ML IV SCH ×2 (10:03→21:35)
[2019-08-14] MEDS: FUROSEMIDE 40 MG in SYRINGE 0 ML IV SCH ×2 (10:03→17:15)
[2019-08-14] MEDS: LORazepam 1 MG TAB PO PRN ×2 (13:10→21:23)
--- NOTE | 2019-08-14 14:21 | Hospitalist Progress Note ---
Date of Service August 14, 2019 Assessment & Plan (1) Sepsis: Likely secondary to leg cellulitis vs UTI Improved on antibiotics and appears resuscitated from a sepsis standpoint. (2) Catheter-associated urinary tract infection: zabala-sensitive E. faecalis. Cont Dapto and cefepime pending other blood culture results. (3) Cellulitis of both lower extremities: Much improved today. Erythema is completely resolved surrounding the wounds which are growing S. aureus. Wound care nurse consult. Continue Dapto and cefepime pending cultures and continued clinical improvement. (4) Acute right-sided congestive heart failure: Acute on chronic diastolic CHF/acute on chronic CHF with preserved EF. Net 5L negative overnight and having hand cramping likely as a result of the aggressive diuresis efforts. Discuss plan with Cardiology. Cont Mg and potassium supplementation as needed. Continue spironolactone per home regimen. Daily standing weights. Strict I/Os. Cont fluid restriction and sodium restricted diet. (5) DM type 2 (diabetes mellitus, type 2): Inpatient glucose controlled, however, A1C is 8.0. Patient is currently "diet-controlled" at home which is very inappropriate. If agreeable to this would recommend Lantus once daily and metformin at discharge with repeat A1C in 3 months. Cont basal/bolus insulin while hospitalized. Recommend annual ophthalmology screening as outpatient and annual screening for microalbuminuria. Diabetic nurse educator requested to assist with education of goals and identification of treatment regimen that works for patient. Need to be much more aggressive with getting him to goal A1C<6.5 with his age and additional comorbidities. Would also suggest outpatient screening for osteoporosis in setting of chronic steroid use. (6) Anemia: Chronic and at baseline. Continue to monitor periodically. (7) Opioid dependence: Continue home regimen of morphine 15 mg p.o. twice daily with oxycodone for breakthrough pain. The patient has a significant history of drug-seeking behaviors and pain management specialists in this institution recommend that he is a poor candidate for long-term utilization of narcotics secondary to nonmalignant pain and a history of noncompliance with medical treatment. Will wean from narcotics with the following regimen, recommended back in May 2019 by hazardous waste management specialist. Decrease oxycodone to 15mg PO q8h PRN x 2 days, then 15mg PO q12h x 2 days, then stop. Cont MS [id number] PO q12h during this time, and after oxycodone is off, change MS Contin to 15 daily x 7 days, then stop. Add clonidine 0.1mg/wk patch and remeron nightly. Imodium for diarrhea as needed. Recommend the patient seek inpatient or outpatient drug and alcohol counseling to assist with his opiate dependency. (8) COPD (chronic obstructive pulmonary disease): Chronic, appears stable but he did have some wheezing on exam which is improved. Not in exacerbation. He is steroid dependent. Continue Spiriva, Breo and prednisone. Cont nebulizers and move to PRN dosing. (9) Chronic chest pain: Initial troponin trend was negative. At least 2 EKGs with sinus tachycardia and no evidence of acute ischemia. Patient has a history of chronic chest pain. Cont Imdur per home regimen. Continue supportive care. (10) Morbid obesity: Advised lifestyle change starting with portion control. Patient is looking into options for bariatric surgery. (11) Depression with anxiety: Likely result of multiple comorbidities, including chronic pain with chronic narcotic use. Continue home Cymbalta. (12) History of pulmonary embolism: INR therapeutic, cont coumadin. Heparin drip stopped. (13) Tobacco abuse: Advised to quit smoking. Continue NicoDerm. Contemplative phase. (14) DVT prophylaxis: coumadin Full code Disposition-pending clinical improvement. PT/OT to assess safety to go home. Of note, patient was recently at [facility] and demonstrated very poor participation in rehabilitation efforts. If rehab is a consideration at time of discharge, would recommend discussing with Dr. Adam in detail prior to moving him back to [facility] as an option. Mala Grace DO [facility] Hospitalist Results & Data Vital Signs (Past 12 Hours) Vital Signs Temp Pulse Pulse Resp BP Pulse Ox 08/14/19 13:38 94 08/14/19 11:40 36.8 C 91 H 18 153/73 H 92 08/14/19 11:15 80 22 93 08/14/19 08:00 81 08/14/19 07:27 36.6 C 80 18 144/68 H 92 08/14/19 04:27 36.6 C 82 19 132/83 93 Laboratory Results Short CBC 08/14/19 Range/Units 06:58 WBC 11.44 H (4.8-10.8) K/uL Hgb 9.9 L (14.0-18.0) g/dL Hct 32.4 L (42-52) % Plt Count 237 (130-400) K/uL BMP 08/14/19 06:58 Sodium 135 L Potassium 3.8 Chloride 100 Carbon Dioxide 29 BUN 17 Creatinine 1.09 Glucose 138 H Calcium 9.7 Medications Administered Current Inpatient Medications Albuterol (Duoneb) 3 ml NEB QIDR [facility] Stop: 09/12/19 18:59 Last Admin: 08/14/19 11:13 Dose: 3 ml Documented by: Aspirin (Ecotrin Ectab) 81 mg PO QAM [facility] Stop: 09/11/19 08:59 Last Admin: 08/14/19 08:49 Dose: 81 mg Documented by: Dextrose (Dextrose 50%) 25 - 50 ml IV UD PRN; Protocol PRN Reason: Hypoglycemia Protocol Stop: 09/10/19 23:05 Docusate Sodium (Colace) 100 mg PO BID [facility] Stop: 09/11/19 08:59 Last Admin: 08/14/19 08:48 Dose: 100 mg Documented by: [facility]) [facility] [place]: 09/11/19 08:59 Last Admin: 08/14/19 08:49 Dose: 60 mg Documented by: Finasteride (Proscar) 5 mg PO QAM [facility] Stop: 09/11/19 08:59 Last Admin: 08/14/19 08:49 Dose: 5 mg Documented by: Fluticasone Propionate (Flonase) 2 sprays NA QAM [facility] Stop: 09/11/19 08:59 Last Admin: 08/14/19 08:51 Dose: 2 sprays Documented by: Gabapentin (Neurontin) 300 mg PO TID [facility] Stop: 09/11/19 08:59 Last Admin: 08/14/19 08:48 Dose: 300 mg Documented by: Glucagon (Glucagen) 1 mg SQ UD PRN; Protocol PRN Reason: Hypoglycemia Protocol Stop: 09/10/19 23:05 Glucose (Glucose 40%) 15 - 30 gm PO UD PRN; Protocol PRN Reason: Hypoglycemia Protocol Stop: 09/10/19 23:05 Glucose (Dex4 Glucose) 4 - 8 tabs PO UD PRN; Protocol PRN Reason: Hypoglycemia Protocol Stop: 09/10/19 23:05 Hydroxyzine HCl (Vistaril) 25 mg PO QID PRN PRN Reason: Anxiety Stop: 09/10/19 23:05 Last Admin: 08/12/19 08:49 Dose: 25 mg Documented by: Promethazine HCl 12.5 mg/ (Sodium Chloride) 50.5 mls @ 202 mls/hr IV Q6H PRN PRN Reason: Nausea And Vomiting Stop: 09/10/19 23:05 Last Infusion: 08/14/19 03:12 Dose: Infused Documented by: Daptomycin 525 mg/ Syringe 10.5 mls @ 5.25 mls/min IV Q24H [facility]; Protocol Stop: 08/22/19 03:59 Last Admin: 08/14/19 04:25 Dose: 5.25 mls/min Documented by: Cefepime HCl 2,000 mg/ Syringe 20 mls @ 5 mls/min IV Q12H [facility]; Protocol Stop: 08/22/19 09:59 Last Admin: 08/14/19 10:03 Dose: 5 mls/min Documented by: Furosemide 40 mg/ Syringe 4 mls @ 4 mls/min IV Q8H [facility] Stop: 09/13/19 09:59 Last Admin: 08/14/19 10:03 Dose: 4 mls/min Documented by: Insulin Aspart (Novolog Flexpen) 0 units SC ACHS [facility] Stop: 09/10/19 23:29 Last Admin: 08/14/19 11:47 Dose: 6 units Documented by: Insulin Glargine (Lantus Solostar Pen) 5 units SC DAILY [facility] Stop: 09/11/19 08:59 Last Admin: 08/14/19 09:34 Dose: 5 units Documented by: Ipratropium [place] (Atrovent 0.02% 0.5mg/2.5ml) 0.5 mg INH Q4H PRN PRN Reason: SOB/WHEEZING Stop: 09/10/19 22:59 Isosorbide Mononitrate (Imdur Extended Rel) 30 mg PO DAILY [facility] Stop: 09/11/19 08:59 Last Admin: 08/14/19 08:48 Dose: 30 mg Documented by: Levalbuterol HCl (Xopenex 1.25mg/0.5ml Neb) 1.25 mg INH Q4H PRN PRN Reason: SOB/WHEEZING Stop: 09/10/19 22:59 Lorazepam (Ativan) 1 mg PO TID PRN PRN Reason: anxiety Stop: 09/10/19 23:18 Last Admin: 08/14/19 13:10 Dose: 1 mg Documented by: Magnesium Oxide (Mag-Ox) 400 mg PO DAILY@1700 [facility] Stop: 09/12/19 16:59 Last Admin: 08/13/19 17:44 Dose: 400 mg Documented by: Metoprolol Succinate (Toprol Xl) 50 mg PO BID [facility] Stop: 09/10/19 20:44 Last Admin: 08/14/19 08:49 Dose: 50 mg Documented by: Miscellaneous (Remove Nicoderm Patch) 1 ea N/A DAILY@0859 [facility] Stop: 09/11/19 08:58 Last Admin: 08/14/19 08:50 Dose: 1 ea Documented by: Miscellaneous (Order Awaiting Action) 1 ea N/A QS [facility] Stop: 09/11/19 00:00 Last Admin: 08/14/19 08:51 Dose: Not Given Documented by: Miscellaneous (Carbohydrates For Hypoglycemia) 15 - 30 gm PO UD PRN PRN Reason: Hypoglycemia Protocol Stop: 09/10/19 23:05 Miscellaneous Information (Cefepime Consult Active) 1 ea N/A UD PRN PRN Reason: Consult Stop: 09/10/19 23:45 Miscellaneous Information (Consult) 1 ea N/A UD PRN PRN Reason: Consult Stop: 09/10/19 23:38 Morphine Sulfate (Ms Contin) 15 mg PO BID [facility] Stop: 08/25/19 23:14 Last Admin: 08/14/19 08:47 Dose: 15 mg Documented by: Nicotine ([facility]oderm Cq) [facility] [place]: 09/10/19 22:54 Last Admin: 08/14/19 08:50 Dose: 21 mg Documented by: Nitroglycerin (Nitrostat) 0.4 mg SL UD PRN PRN Reason: Chest Pain Stop: 09/10/19 23:05 Oxycodone HCl (Roxicodone Immediate Rel) 15 mg PO Q4H PRN PRN Reason: Pain Stop: 08/25/19 23:05 Last Admin: 08/14/19 12:31 Dose: 15 mg Documented by: Pantoprazole Sodium (Protonix) 40 mg PO QAM [facility] Stop: 09/11/19 08:59 Last Admin: 08/14/19 08:48 Dose: 40 mg Documented by: Potassium Chloride (Klor-Con M20) 20 meq PO BID17 [facility] Stop: 09/12/19 16:59 Last Admin: 08/14/19 08:50 Dose: 20 meq Documented by: Prednisone (Prednisone) 5 mg PO DAILY [facility] Stop: 09/11/19 08:59 Last Admin: 08/14/19 08:49 Dose: 5 mg Documented by: Spironolactone (Aldactone) 25 mg PO DAILY [facility] Stop: 09/11/19 08:59 Last Admin: 08/14/19 08:51 Dose: 25 mg Documented by: Tamsulosin HCl (Flomax) 0.4 mg PO DAILY [facility] Stop: 09/11/19 08:59 Last Admin: 08/14/19 08:48 Dose: 0.4 mg Documented by: Tiotropium [place] (Spiriva) 1 puffs INH DAILY [facility] Stop: 09/11/19 08:59 Last Admin: 08/14/19 08:52 Dose: 1 puffs Documented by: Tramadol HCl (Ultram) 50 mg PO Q4 PRN PRN Reason: Pain Stop: 09/10/19 23:05 Last Admin: 08/14/19 10:02 Dose: 50 mg Documented by: Warfarin Sodium (Coumadin) 5 mg PO DAILY@1600 [facility] Stop: 09/14/19 15:59 Warfarin Sodium (Coumadin) 2.5 mg PO ONE ONE Stop: 08/14/19 16:01 (1) Anemia Anemia type: unspecified type Qualified Code(s): D64.9 - Anemia, unspecified (2) Sepsis Sepsis acute organ dysfunction status: unspecified Sepsis type: sepsis due to unspecified organism Qualified Code(s): A41.9 - Sepsis, unspecified organism (3) COPD (chronic obstructive pulmonary disease) COPD type: emphysema Emphysema type: unspecified Qualified Code(s): J43.9 - Emphysema, unspecified
[2019-08-14] MEDS ORDERED: WARFARIN SOD 2.5 MG TAB PO ONE (16:00)
[2019-08-14] MEDS: MAGNESIUM OXIDE 400 MG TAB PO SCH (16:33)
[2019-08-14] MEDS ORDERED: LOPERAMIDE HCL 2 MG CAP PO PRN (16:40)
[2019-08-14] MEDS: cloNIDine HCL 0.1 MG/24 HR TRANSDERM SYS TD SCH (18:27)
[2019-08-14] MEDS: MIRTAZAPINE TAB 15 MG TAB PO SCH (21:24)
[2019-08-14] MEDS: CHECK CLONIDINE PATCH PLACEMENT SCH (23:03)
[2019-08-15] MEDS: DAPTOmycin 525 MG in SYRINGE 0 ML IV SCH (03:24)
[2019-08-15] MEDS: FUROSEMIDE 40 MG in SYRINGE 0 ML IV SCH ×3 (03:24→17:01)
[2019-08-15] MEDS ORDERED: ALBUT/IPRATROP 3MG/0.5MG NEB 3 ML VIAL NEB PRN (05:50)
[2019-08-15 06:37] LABS: Hemoglobin 10.1 g/dL (14.0-18.0); Mean Corpuscular Hgb Conc 29.7 g/dL (32-36); Mean Corpuscular Volume 77.3 fL (80-100); Mean Platelet Volume 9.2 fL (7.4-10.4); Platelet Count 233 K/uL (130-400); RDW Coefficient of Variation 18.7 % (11.5-14.5); RDW Standard Deviation 52.8 fL (36.4-46.3); White Blood Count 10.32 K/uL (4.8-10.8)
[2019-08-15 06:52] LABS: Prothrombin Time 28.3 Seconds (9.0-12.0)
[2019-08-15 07:11] LABS: BUN Creatinine Ratio 15.9 (10-20); Calcium 9.7 mg/dl (8.5-10.1); Creatinine Clr Calc Pharmacy 137.4 ml/min; Est GFR (African American) 83.5; Potassium 3.6 mmol/L (3.5-5.1)
[2019-08-15] MEDS: INSULIN ASPART 100 UNITS/ML 3 ML PEN SC SCH ×4 (08:21→22:04)
[2019-08-15] MEDS: FINASTERIDE 5 MG TAB PO SCH (08:21)
[2019-08-15] MEDS: ASPIRIN 81 MG ECTAB PO SCH (08:22)
[2019-08-15] MEDS: METOPROLOL SUCC 50MG EXT REL TAB PO SCH ×2 (08:22→21:59)
[2019-08-15] MEDS: DOCUSATE SODIUM 100 MG CAP PO SCH ×2 (08:23→21:59)
[2019-08-15] MEDS: DULOXETINE HCL 60 MG CAP PO SCH (08:23)
[2019-08-15] MEDS: ISOSORBIDE MONO EXTENDED REL 30 MG TABCR PO SCH (08:23)
[2019-08-15] MEDS: TAMSULOSIN HCL 0.4 MG CAP PO SCH (08:23)
[2019-08-15] MEDS: SPIRONOLACTONE 25 MG TAB PO SCH (08:23)
[2019-08-15] MEDS: PANTOprazole 40 MG TAB PO SCH (08:23)
[2019-08-15] MEDS: predniSONE 5 MG TAB PO SCH (08:23)
[2019-08-15] MEDS: POTASSIUM CHLORIDE 20 MEQ TABCR PO SCH ×2 (08:23→17:01)
[2019-08-15] MEDS: GABAPENTIN 300 MG CAP PO SCH ×3 (08:24→21:59)
[2019-08-15] MEDS: FLUTICASONE PROPIONATE NA SPR 16 GM BTL SCH (08:24)
[2019-08-15] MEDS: NICOTINE 21 MG/24 HR TDSY TD SCH (08:24)
[2019-08-15] MEDS: INSULIN GLARGINE SOLOSTAR 100 UNITS/ML 3 ML PEN SC SCH (08:24)
[2019-08-15] MEDS: CHECK CLONIDINE PATCH PLACEMENT SCH ×2 (08:27→16:59)
[2019-08-15] MEDS: MoRPHine SULFATE CR 15 MG TABCR PO SCH ×2 (08:31→21:59)
[2019-08-15] MEDS: TIOTROPIUM BROMIDE 5 PUFF/90 MCG INH INH SCH (08:31)
[2019-08-15] MEDS: OXYCODONE HCL IR 5 MG TAB (IMMEDIATE RELEASE) PO PRN ×3 (08:31→16:59)
[2019-08-15] MEDS: CEFEPIME 2,000 MG in SYRINGE 7.5 ML IV SCH (10:15)
[2019-08-15] MEDS: LORazepam 1 MG TAB PO PRN ×3 (11:53→21:59)
[2019-08-15] MEDS ORDERED: COUGH DROP (SUGAR FREE) LOZ 24 LOZ/1 BOX BUCCAL PRN (13:56)
[2019-08-15] MEDS ORDERED: WARFARIN SOD 5 MG TAB PO SCH (16:00)
--- NOTE | 2019-08-15 16:38 | Hospitalist Progress Note ---
Date of Service August 15, 2019 Assessment & Plan (1) Sepsis: Likely secondary to leg cellulitis vs UTI Improved on antibiotics and appears resuscitated from a sepsis standpoint. Remains afebrile and white count has improved We will continue current antibiotic for now (2) Catheter-associated urinary tract infection: zabala-sensitive E. faecalis. Cont Dapto and cefepime pending other blood culture results. Blood cultures have been negative We will discontinue Dapto and cefepime Will start Augmentin to cover staph and UTI (3) Cellulitis of both lower extremities: Much improved today. Erythema is completely resolved surrounding the wounds which are growing S. aureus. Wound care nurse consult. Continue Dapto and cefepime pending cultures and continued clinical improvement. Blood cultures have been negative Wound culture staph aureus sensitive to oxacillin Urine culture Enterococcus faecalis sensitive to ampicillin Will start Augmentin (4) Acute right-sided congestive heart failure: Acute on chronic diastolic CHF/acute on chronic CHF with preserved EF. Net 5L negative overnight and having hand cramping likely as a result of the aggressive diuresis efforts. Cont Mg and potassium supplementation as needed. Continue spironolactone per home regimen. Daily standing weights. Strict I/Os. Cont fluid restriction and sodium restricted diet. Appreciate cardiology input and recommendation (5) DM type 2 (diabetes mellitus, type 2): Inpatient glucose controlled, however, A1C is 8.0. Patient is currently "diet-controlled" at home which is very inappropriate. Appreciate pharmacist management of diabetes No acute issue (6) Anemia: Chronic and at baseline. Continue to monitor periodically. (7) Opioid dependence: Continue home regimen of morphine 15 mg p.o. twice daily with oxycodone for breakthrough pain. The patient has a significant history of drug-seeking behaviors and pain management specialists in this institution recommend that he is a poor candidate for long-term utilization of narcotics secondary to nonmalignant pain and a history of noncompliance with medical treatment. Will wean from narcotics with the following regimen, recommended back in May 2019 by delivery specialist. Decrease oxycodone to 15mg PO q8h PRN x 2 days, then 15mg PO q12h x 2 days, then stop. Cont MS [id number] PO q12h during this time, and after oxycodone is off, change MS Contin to 15 daily x 7 days, then stop. Add clonidine 0.1mg/wk patch and remeron nightly. Imodium for diarrhea as needed. Recommend the patient seek inpatient or outpatient drug and alcohol counseling to assist with his opiate dependency. We will discuss with the Dr. Adam and Dr. Valencia for continuation of narcotics as he was prescribed from [facility] For now we will continue as per the plan (8) COPD (chronic obstructive pulmonary disease): Chronic, appears stable but he did have some wheezing on exam which is improved. Not in exacerbation. He is steroid dependent. Continue Spiriva, Breo and prednisone. Cont nebulizers and move to PRN dosing. (9) Chronic chest pain: Initial troponin trend was negative. At least 2 EKGs with sinus tachycardia and no evidence of acute ischemia. Patient has a history of chronic chest pain. Cont Imdur per home regimen. Continue supportive care. (10) Morbid obesity: Advised lifestyle change starting with portion control. Patient is looking into options for bariatric surgery. (11) Depression with anxiety: Likely result of multiple comorbidities, including chronic pain with chronic narcotic use. Continue home Cymbalta. (12) History of pulmonary embolism: INR therapeutic, cont coumadin. Heparin drip stopped. (13) Tobacco abuse: Advised to quit smoking. Continue NicoDerm. Contemplative phase. (14) DVT prophylaxis: coumadin Full code Disposition-pending clinical improvement. PT/OT to assess safety to go home. Of note, patient was recently at [facility] and demonstrated very poor participation in rehabilitation efforts. If rehab is a consideration at time of discharge, would recommend discussing with Dr. Adam in detail prior to moving him back to [facility] as an option. Subjective 08/15 The patient was seen and examined in telemetry unit He complains to have ongoing pain at the back Shortness of breath and leg edema with cellulitis have improved a lot Review of Systems Review of Systems: All systems reviewed and are unremarkable except as noted below Physical Exam Physical Exam: Lying in bed comfortably Constitutional: well developed, well nourished, + ill appearing and + morbidly obese; no acute distress Eyes: PERRL, conjunctivae normal, anicteric sclerae ENMT: external ear and nose normal, oropharynx normal Neck: trachea midline, no thyromegaly Respiratory: normal respiratory effort; no respiratory distress Auscultation: + diminished lung sounds and + crackles (Minimal crackles at the bases) Cardiovascular: Rate/Rhythm: regular rate and regular rhythm Heart Sounds: no murmur Gastrointestinal (Abdomen): Inspection/Auscultation: abdomen normal to inspection and normal bowel sounds Percussion/Palpation: abdomen soft; abdomen nontender Musculoskeletal: No acute arthritis in any of the joints Neurologic: Alert, 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 Lymphatic: no cervical or axillary lymphadenopathy Results & Data Vital Signs (Past 12 Hours) Vital Signs Temp Pulse Resp BP Pulse Ox 08/15/19 15:16 36.7 C 89 22 127/72 95 08/15/19 11:55 36.3 C L 89 20 137/77 96 08/15/19 07:22 36.5 C 76 20 148/74 H 89 L Laboratory Results Short CBC 08/15/19 Range/Units 06:19 WBC 10.32 (4.8-10.8) K/uL Hgb 10.1 L (14.0-18.0) g/dL Hct 34.0 L (42-52) % Plt Count 233 (130-400) K/uL BMP 08/15/19 06:19 Sodium 137 Potassium 3.6 Chloride 101 Carbon Dioxide 31 BUN 19 H Creatinine 1.18 Glucose 146 H Calcium 9.7 Medications Administered Current Inpatient Medications Albuterol (Duoneb) 3 ml NEB QIDR PRN PRN Reason: SOB/wheezing Stop: 09/12/19 18:59 Aspirin (Ecotrin Ectab) 81 mg PO QAM [facility] Stop: 09/11/19 08:59 Last Admin: 08/15/19 08:22 Dose: 81 mg Documented by: Clonidine HCl ([id number]-[id number] 0.1mg/24hr) 1 patch TD Mo@1630 [facility] Stop: 09/13/19 16:29 Last Admin: 08/14/19 18:27 Dose: Not Given Documented by: Dextrose (Dextrose 50%) 25 - 50 ml IV UD PRN; Protocol PRN Reason: Hypoglycemia Protocol Stop: 09/10/19 23:05 Docusate Sodium (Colace) 100 mg PO BID [facility] Stop: 09/11/19 08:59 Last Admin: 08/15/19 08:23 Dose: 100 mg Documented by: Duloxetine HCl (Cymbalta) 60 mg PO QAM [facility] Stop: 09/11/19 08:59 Last Admin: 08/15/19 08:23 Dose: 60 mg Documented by: Finasteride (Proscar) 5 mg PO QAM [facility] Stop: 09/11/19 08:59 Last Admin: 08/15/19 08:21 Dose: 5 mg Documented by: Fluticasone Propionate (Flonase) 2 sprays NA QAM [facility] Stop: 09/11/19 08:59 Last Admin: 08/15/19 08:24 Dose: 2 sprays Documented by: Gabapentin (Neurontin) 300 mg PO TID [facility] Stop: 09/11/19 08:59 Last Admin: 08/15/19 15:24 Dose: 300 mg Documented by: Glucagon (Glucagen) 1 mg SQ UD PRN; Protocol PRN Reason: Hypoglycemia Protocol Stop: 09/10/19 23:05 Glucose (Glucose 40%) 15 - 30 gm PO UD PRN; Protocol PRN Reason: Hypoglycemia Protocol Stop: 09/10/19 23:05 Glucose (Dex4 Glucose) 4 - 8 tabs PO UD PRN; Protocol PRN Reason: Hypoglycemia Protocol Stop: 09/10/19 23:05 Hydroxyzine HCl (Vistaril) 25 mg PO QID PRN PRN Reason: Anxiety Stop: 09/10/19 23:05 Last Admin: 08/14/19 21:23 Dose: 25 mg Documented by: Promethazine HCl 12.5 mg/ (Sodium Chloride) 50.5 mls @ 202 mls/hr IV Q6H PRN PRN Reason: Nausea And Vomiting Stop: 09/10/19 23:05 Last Infusion: 08/14/19 03:12 Dose: Infused Documented by: Daptomycin 525 mg/ Syringe 10.5 mls @ 5.25 mls/min IV Q24H [facility]; Protocol Stop: 08/22/19 03:59 Last Admin: 08/15/19 03:24 Dose: 5.25 mls/min Documented by: Cefepime HCl 2,000 mg/ Syringe 20 mls @ 5 mls/min IV Q12H [facility]; Protocol Stop: 08/22/19 09:59 Last Admin: 08/15/19 10:15 Dose: 5 mls/min Documented by: Furosemide 40 mg/ Syringe 4 mls @ 4 mls/min IV Q8H [facility] Stop: 09/13/19 09:59 Last Admin: 08/15/19 10:15 Dose: 4 mls/min Documented by: Insulin Aspart (Novolog Flexpen) 0 units SC ACHS [facility] Stop: 09/10/19 23:29 Last Admin: 08/15/19 11:37 Dose: 4 units Documented by: Insulin Glargine (Lantus Solostar Pen) 5 units SC DAILY [facility] Stop: 09/11/19 08:59 Last Admin: 08/15/19 08:24 Dose: 5 units Documented by: Ipratropium [place] (Atrovent 0.02% 0.5mg/2.5ml) 0.5 mg INH Q4H PRN PRN Reason: SOB/WHEEZING Stop: 09/10/19 22:59 Isosorbide Mononitrate (Imdur Extended Rel) 30 mg PO DAILY [facility] Stop: 09/11/19 08:59 Last Admin: 08/15/19 08:23 Dose: 30 mg Documented by: Levalbuterol HCl (Xopenex 1.25mg/0.5ml Neb) 1.25 mg INH Q4H PRN PRN Reason: SOB/WHEEZING Stop: 09/10/19 22:59 Loperamide HCl (Imodium) 2 mg PO UD PRN PRN Reason: Diarrhea Stop: 09/13/19 16:39 Lorazepam (Ativan) 1 mg PO TID PRN PRN Reason: anxiety Stop: 09/10/19 23:18 Last Admin: 08/15/19 11:53 Dose: 1 mg Documented by: Magnesium Oxide (Mag-Ox) 400 mg PO DAILY@1700 [facility] Stop: 09/12/19 16:59 Last Admin: 08/14/19 16:33 Dose: 400 mg Documented by: Menthol (Nice) 1 lashon BUCCAL Q4H PRN PRN Reason: Sore Throat Stop: 09/14/19 13:55 Metoprolol Succinate (Toprol Xl) 50 mg PO BID [facility] Stop: 09/10/19 20:44 Last Admin: 08/15/19 08:22 Dose: 50 mg Documented by: Mirtazapine (Remeron) 15 mg PO HS [facility] Stop: 09/13/19 20:59 Last Admin: 08/14/19 21:24 Dose: Not Given Documented by: Miscellaneous (Remove Nicoderm Patch) 1 ea N/A DAILY@0859 [facility] Stop: 09/11/19 08:58 Last Admin: 08/15/19 08:27 Dose: 1 ea Documented by: Miscellaneous (Order Awaiting Action) 1 ea N/A QS [facility] Stop: 09/11/19 00:00 Last Admin: 08/15/19 01:56 Dose: Not Given Documented by: Miscellaneous (Carbohydrates For Hypoglycemia) 15 - 30 gm PO UD PRN PRN Reason: Hypoglycemia Protocol Stop: 09/10/19 23:05 Miscellaneous (Check Clonidine Patch) 1 ea N/A QS [facility] Stop: 09/14/19 00:00 Last Admin: 08/15/19 08:27 Dose: 1 ea Documented by: Miscellaneous (Remove Clonidine Patch) 1 ea N/A Mo@1629 [facility] Stop: 09/20/19 16:28 Miscellaneous Information (Cefepime Consult Active) 1 ea N/A UD PRN PRN Reason: Consult Stop: 09/10/19 23:45 Miscellaneous Information (Consult) 1 ea N/A UD PRN PRN Reason: Consult Stop: 09/10/19 23:38 Morphine Sulfate (Ms Contin) 15 mg PO BID [facility] Stop: 08/18/19 23:14 Last Admin: 08/15/19 08:31 Dose: 15 mg Documented by: Morphine Sulfate (Ms Contin) 15 mg PO DAILY [facility] Stop: 08/25/19 09:01 Nicotine (Nicoderm Cq) 21 mg TD QAM [facility] Stop: 09/10/19 22:54 Last Admin: 08/15/19 08:24 Dose: 21 mg Documented by: Nitroglycerin (Nitrostat) 0.4 mg SL UD PRN PRN Reason: Chest Pain Stop: 09/10/19 23:05 Oxycodone HCl (Roxicodone Immediate Rel) 15 mg PO Q8H PRN PRN Reason: Pain Stop: 08/16/19 16:30 Last Admin: 08/15/19 09:00 Dose: 15 mg Documented by: Oxycodone HCl (Roxicodone Immediate Rel) 15 mg PO Q12H PRN PRN Reason: Pain Stop: 08/18/19 16:40 Pantoprazole Sodium (Protonix) 40 mg PO QAM [facility] Stop: 09/11/19 08:59 Last Admin: 08/15/19 08:23 Dose: 40 mg Documented by: Potassium Chloride (Klor-Con M20) 20 meq PO BID17 [facility] Stop: 09/12/19 16:59 Last Admin: 08/15/19 08:23 Dose: 20 meq Documented by: Prednisone (Prednisone) 5 mg PO DAILY [facility] Stop: 09/11/19 08:59 Last Admin: 08/15/19 08:23 Dose: 5 mg Documented by: Spironolactone (Aldactone) 25 mg PO DAILY [facility] Stop: 09/11/19 08:59 Last Admin: 08/15/19 08:23 Dose: 25 mg Documented by: Tamsulosin HCl (Flomax) 0.4 mg PO DAILY [facility] Stop: 09/11/19 08:59 Last Admin: 08/15/19 08:23 Dose: 0.4 mg Documented by: Tiotropium [place] (Spiriva) 1 puffs INH DAILY [facility] Stop: 09/11/19 08:59 Last Admin: 08/15/19 08:31 Dose: 1 puffs Documented by: Warfarin Sodium (Coumadin) 5 mg PO DAILY@1600 [facility] Stop: 09/14/19 15:59 (1) Sepsis Sepsis acute organ dysfunction status: unspecified Sepsis type: sepsis due to unspecified organism Qualified Code(s): A41.9 - Sepsis, unspecified organism (2) Anemia Anemia type: unspecified type Qualified Code(s): D64.9 - Anemia, unspecified (3) COPD (chronic obstructive pulmonary disease) COPD type: emphysema Emphysema type: unspecified Qualified Code(s): J43.9 - Emphysema, unspecified
[2019-08-15] MEDS: MAGNESIUM OXIDE 400 MG TAB PO SCH (17:00)
[2019-08-15] MEDS: AMOXICILLIN/CLAVULANATE 875 MG TAB PO SCH (17:42)
[2019-08-15] MEDS: MIRTAZAPINE TAB 15 MG TAB PO SCH (21:41)
[2019-08-16] MEDS: OXYCODONE HCL IR 5 MG TAB (IMMEDIATE RELEASE) PO PRN ×3 (01:34→17:34)
[2019-08-16] MEDS: FUROSEMIDE 40 MG in SYRINGE 0 ML IV SCH ×3 (01:35→17:23)
[2019-08-16] MEDS: CHECK CLONIDINE PATCH PLACEMENT SCH ×3 (01:41→17:20)
[2019-08-16 06:23] LABS: Basophils # (auto) 0.05 K/uL (0-0.2); Basophils % (auto) 0.4 %; Eosinophils # (auto) 0.37 K/uL (0-0.5); Eosinophils % (auto) 3.2 %; Hematocrit (blood only) 35.4 % (42-52); Hemoglobin 10.8 g/dL (14.0-18.0); Immature Granulocytes # (auto) 0.03 K/uL (0.00-0.02); Immature Granulocytes % (auto) 0.3 %; Lymphocytes # (auto) 2.33 K/uL (1.2-3.4); Lymphocytes % (auto) 19.9 %; Mean Corpuscular Hemoglobin 23.5 pg (25-34); Mean Corpuscular Hgb Conc 30.5 g/dL (32-36); Mean Corpuscular Volume 77.1 fL (80-100); Mean Platelet Volume 9.5 fL (7.4-10.4); Monocytes # (auto) 0.85 K/uL (0.11-0.59); Monocytes % (auto) 7.2 %; Platelet Count 261 K/uL (130-400); RDW Coefficient of Variation 18.8 % (11.5-14.5); RDW Standard Deviation 52.6 fL (36.4-46.3); Red Blood Count 4.59 M/uL (4.7-6.1); White Blood Count 11.73 K/uL (4.8-10.8)
[2019-08-16 06:33] LABS: INR 2.1 (0.9-1.1); Prothrombin Time 20.3 Seconds (9.0-12.0)
[2019-08-16 07:00] LABS: Calcium 9.9 mg/dl (8.5-10.1); Creatinine Clr Calc Pharmacy 127.1 ml/min; Est GFR (African American) 75.7; Est GFR (Non-African American) 65.3; Potassium 3.8 mmol/L (3.5-5.1)
[2019-08-16] MEDS: MoRPHine SULFATE CR 15 MG TABCR PO SCH ×2 (09:27→21:27)
[2019-08-16] MEDS: GABAPENTIN 300 MG CAP PO SCH ×3 (09:28→21:28)
[2019-08-16] MEDS: ISOSORBIDE MONO EXTENDED REL 30 MG TABCR PO SCH (09:28)
[2019-08-16] MEDS: FLUTICASONE PROPIONATE NA SPR 16 GM BTL SCH (09:28)
[2019-08-16] MEDS: TAMSULOSIN HCL 0.4 MG CAP PO SCH (09:28)
[2019-08-16] MEDS: DOCUSATE SODIUM 100 MG CAP PO SCH ×2 (09:28→21:27)
[2019-08-16] MEDS: DULOXETINE HCL 60 MG CAP PO SCH (09:28)
[2019-08-16] MEDS: SPIRONOLACTONE 25 MG TAB PO SCH (09:29)
[2019-08-16] MEDS: AMOXICILLIN/CLAVULANATE 875 MG TAB PO SCH ×2 (09:29→17:22)
[2019-08-16] MEDS: NICOTINE 21 MG/24 HR TDSY TD SCH (09:29)
[2019-08-16] MEDS: FINASTERIDE 5 MG TAB PO SCH (09:29)
[2019-08-16] MEDS: ASPIRIN 81 MG ECTAB PO SCH (09:30)
[2019-08-16] MEDS: POTASSIUM CHLORIDE 20 MEQ TABCR PO SCH ×2 (09:30→17:22)
[2019-08-16] MEDS: predniSONE 5 MG TAB PO SCH (09:30)
[2019-08-16] MEDS: PANTOprazole 40 MG TAB PO SCH (09:30)
[2019-08-16] MEDS: TIOTROPIUM BROMIDE 5 PUFF/90 MCG INH INH SCH (09:30)
[2019-08-16] MEDS: METOPROLOL SUCC 50MG EXT REL TAB PO SCH ×2 (09:30→21:28)
[2019-08-16] MEDS: INSULIN ASPART 100 UNITS/ML 3 ML PEN SC SCH ×4 (09:31→22:38)
[2019-08-16] MEDS: INSULIN GLARGINE SOLOSTAR 100 UNITS/ML 3 ML PEN SC SCH (09:31)
[2019-08-16] MEDS: LORazepam 1 MG TAB PO PRN ×3 (12:47→21:27)
--- NOTE | 2019-08-16 14:52 | Hospitalist Progress Note ---
Date of Service August 16, 2019 Assessment & Plan (1) Sepsis: Likely secondary to leg cellulitis vs UTI Improved on antibiotics and appears resuscitated from a sepsis standpoint. Remains afebrile and white count has improved We will continue current antibiotic for now Antibiotics changed to oral Augmentin as per sensitivity (2) Catheter-associated urinary tract infection: zabala-sensitive E. faecalis. Cont Dapto and cefepime pending other blood culture results. Blood cultures have been negative We will discontinue Dapto and cefepime Will start Augmentin to cover staph and UTI We will continue antibiotic for a total of 14 days (3) Cellulitis of both lower extremities: Much improved today. Erythema is completely resolved surrounding the wounds which are growing S. aureus. Wound care nurse consult. Continue Dapto and cefepime pending cultures and continued clinical improvement. Blood cultures have been negative Wound culture staph aureus sensitive to oxacillin Urine culture Enterococcus faecalis sensitive to ampicillin Will start Augmentin to continue for a total of 14 days (4) Acute right-sided congestive heart failure: Acute on chronic diastolic CHF/acute on chronic CHF with preserved EF. Net 5L negative overnight and having hand cramping likely as a result of the aggressive diuresis efforts. Cont Mg and potassium supplementation as needed. Continue spironolactone per home regimen. Daily standing weights. Strict I/Os. Cont fluid restriction and sodium restricted diet. Appreciate cardiology input and recommendation Diuresing enough Creatinine remains stable Continue current dose of Lasix (5) DM type 2 (diabetes mellitus, type 2): Inpatient glucose controlled, however, A1C is 8.0. Patient is currently "diet-controlled" at home which is very inappropriate. Appreciate pharmacist management of diabetes No acute issue (6) Anemia: Chronic and at baseline. Continue to monitor periodically. (7) Opioid dependence: Continue home regimen of morphine 15 mg p.o. twice daily with oxycodone for breakthrough pain. The patient has a significant history of drug-seeking behaviors and pain management specialists in this institution recommend that he is a poor candidate for long-term utilization of narcotics secondary to nonmalignant pain and a history of noncompliance with medical treatment. Will wean from narcotics with the following regimen, recommended back in May 2019 by student records specialist. Decrease oxycodone to 15mg PO q8h PRN x 2 days, then 15mg PO q12h x 2 days, then stop. Cont MS [id number] PO q12h during this time, and after oxycodone is off, change MS Contin to 15 daily x 7 days, then stop. Add clonidine 0.1mg/wk patch and remeron nightly. Imodium for diarrhea as needed. Recommend the patient seek inpatient or outpatient drug and alcohol counseling to assist with his opiate dependency. We will discuss with the Dr. Adam and Dr. Valencia for continuation of narcotics as he was prescribed from [facility] For now we will continue as per the plan [facility] will not take him so Dr. Adam and/or Dr. Valencia will not be able to write the prescription of narcotics Will stress to continue with weaning protocol of narcotics with the patient (8) COPD (chronic obstructive pulmonary disease): Chronic, appears stable but he did have some wheezing on exam which is improved. Not in exacerbation. He is steroid dependent. Continue Spiriva, Breo and prednisone. Cont nebulizers and move to PRN dosing. (9) Chronic chest pain: Initial troponin trend was negative. At least 2 EKGs with sinus tachycardia and no evidence of acute ischemia. Patient has a history of chronic chest pain. Cont Imdur per home regimen. Continue supportive care. As above (10) Morbid obesity: Advised lifestyle change starting with portion control. Patient is looking into options for bariatric surgery. (11) Depression with anxiety: Likely result of multiple comorbidities, including chronic pain with chronic narcotic use. Continue home Cymbalta. (12) History of pulmonary embolism: INR therapeutic, cont coumadin. Heparin drip stopped. Will restart Coumadin from today (13) Tobacco abuse: Advised to quit smoking. Continue NicoDerm. Contemplative phase. (14) DVT prophylaxis: coumadin Full code Disposition-pending clinical improvement. PT/OT to assess safety to go home. Of note, patient was recently at [facility] and demonstrated very poor participation in rehabilitation efforts. If rehab is a consideration at time of discharge, would recommend discussing with Dr. Adam in detail prior to moving him back to [facility] as an option. [facility] will not take the patient Trying for [facility] as per onsite case manager Subjective 08/15 The patient was seen and examined in telemetry unit He complains to have ongoing pain at the back Shortness of breath and leg edema with cellulitis have improved a lot 08/16 The patient was seen and examined in the telemetry unit His heart failure and leg swelling including UTI have been improving His pain has not been controlled and he cannot participate in any physical the rapy without the pain medications He was strongly advised to follow the weaning guideline of narcotics as per Dr. Carter, the pain therapist Review of Systems Review of Systems: All systems reviewed and are unremarkable except as noted below Physical Exam Physical Exam: Lying in bed comfortably Constitutional: well developed, well nourished, + ill appearing and + morbidly obese; no acute distress Eyes: PERRL, conjunctivae normal, anicteric sclerae ENMT: external ear and nose normal, oropharynx normal Neck: trachea midline, no thyromegaly Respiratory: normal respiratory effort; no respiratory distress Auscultation: + diminished lung sounds and + crackles (Minimal crackles at the bases) Cardiovascular: Rate/Rhythm: regular rate and regular rhythm Heart Sounds: no murmur Gastrointestinal (Abdomen): Inspection/Auscultation: abdomen normal to inspec tion and normal bowel sounds Percussion/Palpation: abdomen soft; abdomen nontender Lymphatic: no cervical or axillary lymphadenopathy Results & Data Vital Signs (Past 12 Hours) Vital Signs Temp Pulse Resp BP Pulse Ox 08/16/19 11:10 36.7 C 91 H 14 148/85 H 91 08/16/19 08:09 36.8 C 83 20 148/104 H 92 08/16/19 03:30 36.3 C L 86 20 150/92 H 93 Laboratory Results Short CBC 08/16/19 Range/Units 06:05 WBC 11.73 H (4.8-10.8) K/uL Hgb 10.8 L (14.0-18.0) g/dL Hct 35.4 L (42-52) % Plt Count 261 (130-400) K/uL BMP 08/16/19 06:05 Sodium 138 Potassium 3.8 Chloride 101 Carbon Dioxide 31 BUN 24 H Creatinine 1.28 Glucose 140 H Calcium 9.9 Medications Administered Current Inpatient Medications Albuterol (Duoneb) 3 ml NEB QIDR PRN PRN Reason: SOB/wheezing Stop: 09/12/19 18:59 Amoxicillin/Clavulanate Potassium (Augmentin 875mg) 1 tab PO BIDM [facility]MPERATRI[facility] Stop: 08/25/19 16:59 Last Admin: 08/16/19 09:29 Dose: 1 tab Documented by: Aspirin (Ecotrin Ectab) 81 mg PO QAM [facility] Stop: 09/11/19 08:59 Last Admin: 08/16/19 09:30 Dose: 81 mg Documented by: Budesonide/Formoterol Fumarate (Symbicort 160mcg/4.5mcg) 2 puffs INH BID [facility] Stop: 09/15/19 20:59 Clonidine HCl ([id number] 0.1mg/24hr) 1 patch TD Mo@1630 [facility] Stop: 09/13/19 16:29 Last Admin: 08/14/19 18:27 Dose: Not Given Documented by: Dextrose (Dextrose 50%) 25 - 50 ml IV UD PRN; Protocol PRN Reason: Hypoglycemia Protocol Stop: 09/10/19 23:05 Docusate Sodium (Colace) 100 mg PO BID [facility] Stop: 09/11/19 08:59 Last Admin: 08/16/19 09:28 Dose: 100 mg Documented by: Duloxetine HCl (Cymbalta) 60 mg PO QAM [facility] Stop: 09/11/19 08:59 Last Admin: 08/16/19 09:28 Dose: 60 mg Documented by: Finasteride (Proscar) 5 mg PO QAM [facility] Stop: 09/11/19 08:59 Last Admin: 08/16/19 09:29 Dose: 5 mg Documented by: Fluticasone Propionate (Flonase) 2 sprays NA QAM [facility] Stop: 09/11/19 08:59 Last Admin: 08/16/19 09:28 Dose: 2 sprays Documented by: Gabapentin (Neurontin) 300 mg PO TID [facility] Stop: 09/11/19 08:59 Last Admin: 08/16/19 12:48 Dose: 300 mg Documented by: Glucagon (Glucagen) 1 mg SQ UD PRN; Protocol PRN Reason: Hypoglycemia Protocol Stop: 09/10/19 23:05 Glucose (Glucose 40%) 15 - 30 gm PO UD PRN; Protocol PRN Reason: Hypoglycemia Protocol Stop: 09/10/19 23:05 Glucose (Dex4 Glucose) 4 - 8 tabs PO UD PRN; Protocol PRN Reason: Hypoglycemia Protocol Stop: 09/10/19 23:05 Hydroxyzine HCl (Vistaril) 25 mg PO QID PRN PRN Reason: Anxiety Stop: 09/10/19 23:05 Last Admin: 08/16/19 09:28 Dose: 25 mg Documented by: Promethazine HCl 12.5 mg/ (Sodium Chloride) 50.5 mls @ 202 mls/hr IV Q6H PRN PRN Reason: Nausea And Vomiting Stop: 09/10/19 23:05 Last Infusion: 08/14/19 03:12 Dose: Infused Documented by: Furosemide 40 mg/ Syringe 4 mls @ 4 mls/min IV Q8H [facility]MPERATRI[facility] Stop: 09/13/19 09:59 Last Admin: 08/16/19 09:32 Dose: 4 mls/min Documented by: Insulin Aspart (Novolog Flexpen) 0 units SC ACHS [facility] Stop: 09/10/19 23:29 Last Admin: 08/16/19 12:47 Dose: 5 units Documented by: Insulin Glargine (Lantus Solostar Pen) 5 units SC DAILY [facility] Stop: 09/11/19 08:59 Last Admin: 08/16/19 09:31 Dose: 5 units Documented by: Ipratropium Grethel (Atrovent 0.02% 0.5mg/2.5ml) 0.5 mg INH Q4H PRN PRN Reason: SOB/WHEEZING Stop: 09/10/19 22:59 Isosorbide Mononitrate (Imdur Extended Rel) 30 mg PO DAILY [facility] Stop: 09/11/19 08:59 Last Admin: 08/16/19 09:28 Dose: 30 mg Documented by: Levalbuterol HCl (Xopenex 1.25mg/0.5ml Neb) 1.25 mg INH Q4H PRN PRN Reason: SOB/WHEEZING Stop: 09/10/19 22:59 Loperamide HCl (Imodium) 2 mg PO UD PRN PRN Reason: Diarrhea Stop: 09/13/19 16:39 Lorazepam (Ativan) 1 mg PO TID PRN PRN Reason: anxiety Stop: 09/10/19 23:18 Last Admin: 08/16/19 12:47 Dose: 1 mg Documented by: Magnesium Oxide (Mag-Ox) 400 mg PO DAILY@1700 [facility] Stop: 09/12/19 16:59 Last Admin: 08/15/19 17:00 Dose: 400 mg Documented by: Menthol (Nice) 1 lashon BUCCAL Q4H PRN PRN Reason: Sore Throat Stop: 09/14/19 13:55 Metoprolol Succinate (Toprol Xl) 50 mg PO BID [facility] Stop: 09/10/19 20:44 Last Admin: 08/16/19 09:30 Dose: 50 mg Documented by: Mirtazapine (Remeron) 15 mg PO HS [facility] Stop: 09/13/19 20:59 Last Admin: 08/15/19 21:41 Dose: Not Given Documented by: Miscellaneous (Remove Nicoderm Patch) 1 ea N/A DAILY@0859 [facility] Stop: 09/11/19 08:58 Last Admin: 08/16/19 09:32 Dose: 1 ea Documented by: Miscellaneous (Carbohydrates For Hypoglycemia) 15 - 30 gm PO UD PRN PRN Reason: Hypoglycemia Protocol Stop: 09/10/19 23:05 Miscellaneous (Check Clonidine Patch) 1 ea N/A QS [facility] Stop: 09/14/19 00:00 Last Admin: 08/16/19 10:45 Dose: 1 ea Documented by: Miscellaneous (Remove Clonidine Patch) 1 ea N/A Mo@1629 [facility] Stop: 09/20/19 16:28 Morphine Sulfate (Ms Contin) 15 mg PO BID [facility] Stop: 08/18/19 23:14 Last Admin: 08/16/19 09:27 Dose: 15 mg Documented by: Morphine Sulfate (Ms Contin) 15 mg PO DAILY [facility] Stop: 08/25/19 09:01 Nicotine (Nicoderm Cq) 21 mg TD QAM [facility] Stop: 09/10/19 22:54 Last Admin: 08/16/19 09:29 Dose: 21 mg Documented by: Nitroglycerin (Nitrostat) 0.4 mg SL UD PRN PRN Reason: Chest Pain Stop: 09/10/19 23:05 Oxycodone HCl (Roxicodone Immediate Rel) 15 mg PO Q8H PRN PRN Reason: Pain Stop: 08/16/19 16:30 Last Admin: 08/16/19 09:33 Dose: 15 mg Documented by: Oxycodone HCl (Roxicodone Immediate Rel) 15 mg PO Q12H PRN PRN Reason: Pain Stop: 08/18/19 16:40 Pantoprazole Sodium (Protonix) 40 mg PO QAM [facility] Stop: 09/11/19 08:59 Last Admin: 08/16/19 09:30 Dose: 40 mg Documented by: Potassium Chloride (Klor-Con M20) 20 meq PO BID17 [facility] Stop: 09/12/19 16:59 Last Admin: 08/16/19 09:30 Dose: 20 meq Documented by: Prednisone (Prednisone) 5 mg PO DAILY [facility] Stop: 09/11/19 08:59 Last Admin: 08/16/19 09:30 Dose: 5 mg Documented by: Spironolactone (Aldactone) 25 mg PO DAILY [facility] Stop: 09/11/19 08:59 Last Admin: 08/16/19 09:29 Dose: 25 mg Documented by: Tamsulosin HCl (Flomax) 0.4 mg PO DAILY [facility] Stop: 09/11/19 08:59 Last Admin: 08/16/19 09:28 Dose: 0.4 mg Documented by: Tiotropium Grethel (Spiriva) 1 puffs INH DAILY [facility] Stop: 09/11/19 08:59 Last Admin: 08/16/19 09:30 Dose: 1 puffs Documented by: Warfarin Sodium (Coumadin) 5 mg PO DAILY@1600 [facility] Stop: 09/14/19 15:59 Last Admin: 08/15/19 17:00 Dose: Not Given Documented by: (1) Anemia Anemia type: unspecified type Qualified Code(s): D64.9 - Anemia, unspecified (2) Sepsis Sepsis acute organ dysfunction status: unspecified Sepsis type: sepsis due to unspecified organism Qualified Code(s): A41.9 - Sepsis, unspecified organism (3) COPD (chronic obstructive pulmonary disease) COPD type: emphysema Emphysema type: unspecified Qualified Code(s): J43.9 - Emphysema, unspecified
[2019-08-16] MEDS: WARFARIN SOD 5 MG TAB PO SCH (17:21)
[2019-08-16] MEDS: MAGNESIUM OXIDE 400 MG TAB PO SCH (17:22)
[2019-08-16] MEDS: BUDESONIDE/FORMOTEROL FUMARATE 160/4.5 60 PUFFS/INHALER INH SCH (21:29)
[2019-08-16] MEDS: MIRTAZAPINE TAB 15 MG TAB PO SCH (21:30)
[2019-08-17] MEDS: CHECK CLONIDINE PATCH PLACEMENT SCH ×3 (00:38→17:04)
[2019-08-17] MEDS: FUROSEMIDE 40 MG in SYRINGE 0 ML IV SCH ×3 (02:30→17:27)
[2019-08-17] MEDS: LORazepam 1 MG TAB PO PRN ×3 (05:12→19:57)
[2019-08-17] MEDS: OXYCODONE HCL IR 5 MG TAB (IMMEDIATE RELEASE) PO PRN ×2 (05:30→17:33)
[2019-08-17 07:09] LABS: INR 1.7 (0.9-1.1); Prothrombin Time 17.1 Seconds (9.0-12.0)
[2019-08-17 07:41] LABS: BUN Creatinine Ratio 20.1 (10-20); Creatinine Clr Calc Pharmacy 139.7 ml/min; Est GFR (African American) 85.2; Est GFR (Non-African American) 73.5; Potassium 3.5 mmol/L (3.5-5.1)
[2019-08-17] MEDS: DULOXETINE HCL 60 MG CAP PO SCH (09:00)
[2019-08-17] MEDS: predniSONE 5 MG TAB PO SCH (09:00)
[2019-08-17] MEDS: DOCUSATE SODIUM 100 MG CAP PO SCH ×2 (09:00→19:59)
[2019-08-17] MEDS: ASPIRIN 81 MG ECTAB PO SCH (09:00)
[2019-08-17] MEDS: AMOXICILLIN/CLAVULANATE 875 MG TAB PO SCH ×2 (09:00→17:28)
[2019-08-17] MEDS: POTASSIUM CHLORIDE 20 MEQ TABCR PO SCH ×2 (09:01→17:29)
[2019-08-17] MEDS: FINASTERIDE 5 MG TAB PO SCH (09:01)
[2019-08-17] MEDS: GABAPENTIN 300 MG CAP PO SCH ×3 (09:02→19:57)
[2019-08-17] MEDS: PANTOprazole 40 MG TAB PO SCH (09:02)
[2019-08-17] MEDS: METOPROLOL SUCC 50MG EXT REL TAB PO SCH ×2 (09:02→19:57)
[2019-08-17] MEDS: BUDESONIDE/FORMOTEROL FUMARATE 160/4.5 60 PUFFS/INHALER INH SCH ×2 (09:02→19:58)
[2019-08-17] MEDS: ISOSORBIDE MONO EXTENDED REL 30 MG TABCR PO SCH (09:02)
[2019-08-17] MEDS: NICOTINE 21 MG/24 HR TDSY TD SCH (09:03)
[2019-08-17] MEDS: TAMSULOSIN HCL 0.4 MG CAP PO SCH (09:03)
[2019-08-17] MEDS: SPIRONOLACTONE 25 MG TAB PO SCH (09:03)
[2019-08-17] MEDS: FLUTICASONE PROPIONATE NA SPR 16 GM BTL SCH (09:04)
[2019-08-17] MEDS: INSULIN GLARGINE SOLOSTAR 100 UNITS/ML 3 ML PEN SC SCH (09:05)
[2019-08-17] MEDS: INSULIN ASPART 100 UNITS/ML 3 ML PEN SC SCH ×4 (09:05→21:58)
[2019-08-17] MEDS: MoRPHine SULFATE CR 15 MG TABCR PO SCH ×2 (09:08→19:57)
[2019-08-17] MEDS: TIOTROPIUM BROMIDE 5 PUFF/90 MCG INH INH SCH (09:14)
--- NOTE | 2019-08-17 13:22 | Hospitalist Progress Note ---
Date of Service August 17, 2019 Assessment & Plan (1) Sepsis: Likely secondary to leg cellulitis vs UTI Improved on antibiotics and appears resuscitated from a sepsis standpoint. Remains afebrile and white count has improved We will continue current antibiotic for now Antibiotics changed to oral Augmentin as per sensitivity No signs of ongoing infection (2) Catheter-associated urinary tract infection: zabala-sensitive E. faecalis. Cont Dapto and cefepime pending other blood culture results. Blood cultures have been negative We will discontinue Dapto and cefepime Will start Augmentin to cover staph and UTI We will continue antibiotic for a total of 14 days (3) Cellulitis of both lower extremities: Much improved today. Erythema is completely resolved surrounding the wounds which are growing S. aureus. Wound care nurse consult. Continue Dapto and cefepime pending cultures and continued clinical improvement. Blood cultures have been negative Wound culture staph aureus sensitive to oxacillin Urine culture Enterococcus faecalis sensitive to ampicillin Will start Augmentin to continue for a total of 14 days Cellulitis of the legs have resolved (4) Acute right-sided congestive heart failure: Acute on chronic diastolic CHF/acute on chronic CHF with preserved EF. Net 5L negative overnight and having hand cramping likely as a result of the agg ressive diuresis efforts. Cont Mg and potassium supplementation as needed. Continue spironolactone per home regimen. Daily standing weights. Strict I/Os. Cont fluid restriction and sodium restricted diet. Appreciate cardiology input and recommendation Diuresing enough Creatinine remains stable Continue current dose of Lasix and he is responding to it without any renal impairment (5) DM type 2 (diabetes mellitus, type 2): Inpatient glucose controlled, however, A1C is 8.0. Patient is currently "diet-controlled" at home which is very inappropriate. Appreciate pharmacist management of diabetes No acute issue (6) Anemia: Chronic and at baseline. Continue to monitor periodically. (7) Opioid dependence: Continue home regimen of morphine 15 mg p.o. twice daily with oxycodone for breakthrough pain. The patient has a significant history of drug-seeking be haviors and pain management specialists in this institution recommend that he is a poor candidate for long-term utilization of narcotics secondary to nonmalignant pain and a history of noncompliance with medical treatment. Will wean from narcotics with the following regimen, recommended back in May 2019 by social media marketing specialist. Decrease oxycodone to 15mg PO q8h PRN x 2 days, then 15mg PO q12h x 2 days, then stop. Cont MS [id number] PO q12h during this time, and after oxycodone is off, change MS Contin to 15 daily x 7 days, then stop. Add clonidine 0.1mg/wk patch and remeron nightly. Imodium for diarrhea as needed. Recommend the patient seek inpatient or outpatient drug and alcohol counseling to assist with his opiate dependency. We will discuss with the Dr. Adam and Dr. Valencia for continuation of narcotics as he was prescribed from [facility] For now we will continue as per the plan [facility] will not take him so Dr. Adam and/or Dr. Valencia will not be able to write the prescription of narcotics Will stress to continue with weaning protocol of narcotics with the patient We will continue to follow the weaning protocol for narcotics I will discuss with Dr. Carter for any dose that can be given before the physical therapy (8) COPD (chronic obstructive pulmonary disease): Chronic, appears stable but he did have some wheezing on exam which is improved. Not in exacerbation. He is steroid dependent. Continue Spiriva, Breo and prednisone. Cont nebulizers and move to PRN dosing. (9) Chronic chest pain: Initial troponin trend was negative. At least 2 EKGs with sinus tachycardia and no evidence of acute ischemia. Patient has a history of chronic chest pain. Cont Imdur per home regimen. Continue supportive care. As above (10) Morbid obesity: Advised lifestyle change starting with portion control. Patient is looking into options for bariatric surgery. (11) Depression with anxiety: Likely result of multiple comorbidities, including chronic pain with chronic narcotic use. Continue home Cymbalta. (12) History of pulmonary embolism: INR therapeutic, cont coumadin. Heparin drip stopped. Will restart Coumadin from today (13) Tobacco abuse: Advised to quit smoking. Continue NicoDerm. Contemplative phase. (14) DVT prophylaxis: coumadin Full code Disposition-pending clinical improvement. PT/OT to assess safety to go home. Of note, patient was recently at [facility] and demonstrated very poor participation in rehabilitation efforts. If rehab is a consideration at time of discharge, would recommend discussing with Dr. Adam in detail prior to moving him back to [facility] as an option. [facility] will not take the patient Trying for [facility] as per gearcase assembler Discussed with the finance Subjective 08/15 The patient was seen and examined in telemetry unit He complains to have ongoing pain at the back Shortness of breath and leg edema with cellulitis have improved a lot 08/16 The patient was seen and examined in the telemetry unit His heart failure and leg swelling including UTI have been improving His pain has not been controlled and he cannot participate in any physical therapy without the pain medications He was strongly advised to follow the weaning guideline of narcotics as per Dr. Carter, the pain therapist 08/17 The patient was seen and examined in telemetry unit He has been feeling a lot better regarding his breathing and swelling of the legs He complains to have increasing pain at the back and cannot participate in physical therapy due to that Review of Systems Review of Systems: All systems reviewed and are unremarkable except as noted below Physical Exam Physical Exam: Lying in bed comfortably Constitutional: well developed, well nourished, + ill appearing and + morbidly obese; no acute distress Eyes: PERRL, conjunctivae normal, anicteric sclerae ENMT: external ear and nose normal, oropharynx normal Neck: trachea midline, no thyromegaly Respiratory: normal respiratory effort; no respiratory distress Auscultation: + diminished lung sounds and + crackles (Minimal crackles at the bases) Cardiovascular: Rate/Rhythm: regular rate and regular rhythm Heart Sounds: no murmur Extremities: + edema; no calf tenderness Gastrointestinal (Abdomen): Inspection/Auscultation: abdomen normal to inspection and normal bowel sounds Percussion/Palpation: abdomen soft; abdomen nontender Musculoskeletal: Complaints to have ongoing back pain without radiation Lymphatic: no cervical or axillary lymphadenopathy Results & Data Vital Signs (Past 12 Hours) Vital Signs Temp Pulse Resp BP Pulse Ox 08/17/19 11:06 36.6 C 90 19 139/84 93 08/17/19 03:46 36.6 C 84 19 160/88 H 91 Laboratory Results BMP 08/17/19 06:35 Sodium 138 Potassium 3.5 Chloride 101 Carbon Dioxide 33 H BUN 23 H Creatinine 1.16 Glucose 177 H Calcium 10.0 Medications Administered Current Inpatient Medications Albuterol (Duoneb) 3 ml NEB QIDR PRN PRN Reason: SOB/wheezing Stop: 09/12/19 18:59 Amoxicillin/Clavulanate Potassium (Augmentin 875mg) 1 tab PO BIDM [facility] Stop: 08/25/19 16:59 Last Admin: 08/17/19 09:00 Dose: 1 tab Documented by: Aspirin (Ecotrin Ectab) 81 mg PO QAM [facility] Stop: 09/11/19 08:59 Last Admin: 08/17/19 09:00 Dose: 81 mg Documented by: Budesonide/Formoterol Fumarate (Symbicort 160mcg/4.5mcg) 2 puffs INH BID [facility] Stop: 09/15/19 20:59 Last Admin: 08/17/19 09:02 Dose: 2 puffs Documented by: Clonidine HCl ([id number] 0.1mg/24hr) 1 patch TD Mo@1630 [facility] Stop: 09/13/19 16:29 Last Admin: 08/14/19 18:27 Dose: Not Given Documented by: Dextrose (Dextrose 50%) 25 - 50 ml IV UD PRN; Protocol PRN Reason: Hypoglycemia Protocol Stop: 09/10/19 23:05 Docusate Sodium (Colace) 100 mg PO BID [facility] Stop: 09/11/19 08:59 Last Admin: 08/17/19 09:00 Dose: 100 mg Documented by: Duloxetine HCl (Cymbalta) 60 mg PO [facility] Stop: 09/11/19 08:59 Last Admin: 08/17/19 09:00 Dose: 60 mg Documented by: Finasteride (Proscar) 5 mg PO QAM [facility] Stop: 09/11/19 08:59 Last Admin: 08/17/19 09:01 Dose: 5 mg Documented by: Fluticasone [facility]ionate [facility]) [facility] Stop: 09/11/19 08:59 Last Admin: 08/17/19 09:04 Dose: 2 sprays Documented by: Gabapentin (Neurontin) 300 mg PO TID [facility] Stop: 09/11/19 08:59 Last Admin: 08/17/19 09:02 Dose: 300 mg Documented by: Glucagon (Glucagen) 1 mg SQ UD PRN; Protocol PRN Reason: Hypoglycemia Protocol Stop: 09/10/19 23:05 Glucose (Glucose 40%) 15 - 30 gm PO UD PRN; Protocol PRN Reason: Hypoglycemia Protocol Stop: 09/10/19 23:05 Glucose (Dex4 Glucose) 4 - 8 tabs PO UD PRN; Protocol PRN Reason: Hypoglycemia Protocol Stop: 09/10/19 23:05 Hydroxyzine HCl (Vistaril) 25 mg PO QID PRN PRN Reason: Anxiety Stop: 09/10/19 23:05 Last Admin: 08/17/19 09:03 Dose: 25 mg Documented by: Promethazine HCl 12.5 mg/ (Sodium Chloride) 50.5 mls @ 202 mls/hr IV Q6H PRN PRN Reason: Nausea And Vomiting Stop: 09/10/19 23:05 Last Infusion: 08/14/19 03:12 Dose: Infused Documented by: Furosemide 40 mg/ Syringe 4 mls @ 4 mls/min IV Q8H [facility] Stop: 09/13/19 09:59 Last Admin: 08/17/19 09:01 Dose: 4 mls/min Documented by: Insulin Aspart (Novolog Flexpen) 0 units SC ACHS [facility] Stop: 09/10/19 23:29 Last Admin: 08/17/19 12:49 Dose: 5 units Documented by: Insulin Glargine (Lantus Solostar Pen) 5 units SC DAILY [facility] Stop: 09/11/19 08:59 Last Admin: 08/17/19 09:05 Dose: 5 units Documented by: Ipratropium Kiana (Atrovent 0.02% 0.5mg/2.5ml) 0.5 mg INH Q4H PRN PRN Reason: SOB/WHEEZING Stop: 09/10/19 22:59 Isosorbide Mononitrate (Imdur Extended Rel) 30 mg PO DAILY [facility] Stop: 09/11/19 08:59 Last Admin: 08/17/19 09:02 Dose: 30 mg Documented by: Levalbuterol HCl (Xopenex 1.25mg/0.5ml Neb) 1.25 mg INH Q4H PRN PRN Reason: SOB/WHEEZING Stop: 09/10/19 22:59 Loperamide HCl (Imodium) 2 mg PO UD PRN PRN Reason: Diarrhea Stop: 09/13/19 16:39 Lorazepam (Ativan) 1 mg PO TID PRN PRN Reason: anxiety Stop: 09/10/19 23:18 Last Admin: 08/17/19 05:12 Dose: 1 mg Documented by: Magnesium Oxide (Mag-Ox) 400 mg PO DAILY@1700 [facility] Stop: 09/12/19 16:59 Last Admin: 08/16/19 17:22 Dose: 400 mg Documented by: Menthol (Nice) 1 lashon BUCCAL Q4H PRN PRN Reason: Sore Throat Stop: 09/14/19 13:55 Metoprolol Succinate (Toprol Xl) 50 mg PO BID [facility] Stop: 09/10/19 20:44 Last Admin: 08/17/19 09:02 Dose: 50 mg Documented by: Mirtazapine (Remeron) 15 mg PO HS [facility] Stop: 09/13/19 20:59 Last Admin: 08/16/19 21:30 Dose: Not Given Documented by: Miscellaneous (Remove Nicoderm Patch) 1 ea N/A DAILY@0859 [facility] Stop: 09/11/19 08:58 Last Admin: 08/17/19 09:04 Dose: 1 ea Documented by: Miscellaneous (Carbohydrates For Hypoglycemia) 15 - 30 gm PO UD PRN PRN Reason: Hypoglycemia Protocol Stop: 09/10/19 23:05 Miscellaneous (Check Clonidine Patch) 1 ea N/A QS [facility] Stop: 09/14/19 00:00 Last Admin: 08/17/19 09:04 Dose: Not Given Documented by: Miscellaneous (Remove Clonidine Patch) 1 ea N/A Mo@1629 [facility] Stop: 09/20/19 16:28 Morphine Sulfate (Ms Contin) 15 mg PO BID [facility] Stop: 08/18/19 23:14 Last Admin: 08/17/19 09:08 Dose: 15 mg Documented by: Morphine Sulfate (Ms Contin) 15 mg PO DAILY [facility] Stop: 08/25/19 09:01 Nicotine (Nicoderm Cq) 21 mg TD QAM [facility] Stop: 09/10/19 22:54 Last Admin: 08/17/19 09:03 Dose: 21 mg Documented by: Nitroglycerin (Nitrostat) 0.4 mg SL UD PRN PRN Reason: Chest Pain Stop: 09/10/19 23:05 Oxycodone HCl (Roxicodone Immediate Rel) 15 mg PO Q12H PRN PRN Reason: Pain Stop: 08/18/19 16:40 Last Admin: 08/17/19 05:30 Dose: 15 mg Documented by: Pantoprazole Sodium (Protonix) 40 mg PO QAM [facility] Stop: 09/11/19 08:59 Last Admin: 08/17/19 09:02 Dose: 40 mg Documented by: Polyethylene Glycol (Miralax Powder Packet) 17 gm PO DAILY PRN PRN Reason: Constipation Stop: 09/15/19 22:56 Potassium Chloride (Klor-Con M20) 20 meq PO BID17 [facility] Stop: 09/12/19 16:59 Last Admin: 08/17/19 09:01 Dose: 20 meq Documented by: Prednisone (Prednisone) 5 mg PO DAILY [facility] Stop: 09/11/19 08:59 Last Admin: 08/17/19 09:00 Dose: 5 mg Documented by: Spironolactone (Aldactone) 25 mg PO DAILY [facility] Stop: 09/11/19 08:59 Last Admin: 08/17/19 09:03 Dose: 25 mg Documented by: Tamsulosin HCl (Flomax) 0.4 mg PO DAILY [facility] Stop: 09/11/19 08:59 Last Admin: 08/17/19 09:03 Dose: 0.4 mg Documented by: Tiotropium Kiana (Spiriva) 1 puffs INH DAILY [facility] Stop: 09/11/19 08:59 Last Admin: 08/17/19 09:14 Dose: 1 puffs Documented by: Warfarin Sodium (Coumadin) 5 mg PO DAILY@1600 [facility] Stop: 09/15/19 15:59 Last Admin: 08/16/19 17:21 Dose: 5 mg Documented by: (1) Sepsis Sepsis acute organ dysfunction status: unspecified Sepsis type: sepsis due to unspecified organism Qualified Code(s): A41.9 - Sepsis, unspecified organism (2) Anemia Anemia type: unspecified type Qualified Code(s): D64.9 - Anemia, unspecified (3) COPD (chronic obstructive pulmonary disease) COPD type: emphysema Emphysema type: unspecified Qualified Code(s): J43.9 - Emphysema, unspecified
[2019-08-17] MEDS: NYSTATIN SUSP 500,000 U/5 ML UDC PO SCH ×2 (17:26→19:55)
[2019-08-17] MEDS: WARFARIN SOD 5 MG TAB PO SCH (17:27)
[2019-08-17] MEDS: MAGNESIUM OXIDE 400 MG TAB PO SCH (17:28)
[2019-08-17] MEDS: MIRTAZAPINE TAB 15 MG TAB PO SCH (19:58)
[2019-08-18] MEDS: CHECK CLONIDINE PATCH PLACEMENT SCH ×3 (00:10→15:52)
[2019-08-18] MEDS: FUROSEMIDE 40 MG in SYRINGE 0 ML IV SCH ×3 (02:42→17:16)
[2019-08-18] MEDS: OXYCODONE HCL IR 5 MG TAB (IMMEDIATE RELEASE) PO PRN (05:58)
[2019-08-18 06:34] LABS: INR 1.8 (0.9-1.1); Prothrombin Time 17.3 Seconds (9.0-12.0)
[2019-08-18 06:55] LABS: BUN Creatinine Ratio 16.4 (10-20); Calcium 9.6 mg/dl (8.5-10.1); Creatinine Clr Calc Pharmacy 150.6 ml/min; Est GFR (African American) 92.9; Est GFR (Non-African American) 80.2; Potassium 3.7 mmol/L (3.5-5.1)
[2019-08-18] MEDS: INSULIN GLARGINE SOLOSTAR 100 UNITS/ML 3 ML PEN SC SCH (10:00)
[2019-08-18] MEDS: AMOXICILLIN/CLAVULANATE 875 MG TAB PO SCH ×2 (10:03→17:13)
[2019-08-18] MEDS: NICOTINE 21 MG/24 HR TDSY TD SCH (10:04)
[2019-08-18] MEDS: SPIRONOLACTONE 25 MG TAB PO SCH (10:05)
[2019-08-18] MEDS: DOCUSATE SODIUM 100 MG CAP PO SCH ×2 (10:06→20:48)
[2019-08-18] MEDS: TAMSULOSIN HCL 0.4 MG CAP PO SCH (10:06)
[2019-08-18] MEDS: ISOSORBIDE MONO EXTENDED REL 30 MG TABCR PO SCH (10:07)
[2019-08-18] MEDS: ASPIRIN 81 MG ECTAB PO SCH (10:07)
[2019-08-18] MEDS: DULOXETINE HCL 60 MG CAP PO SCH (10:07)
[2019-08-18] MEDS: FLUTICASONE PROPIONATE NA SPR 16 GM BTL SCH (10:07)
[2019-08-18] MEDS: NYSTATIN SUSP 500,000 U/5 ML UDC PO SCH ×4 (10:08→20:46)
[2019-08-18] MEDS: GABAPENTIN 300 MG CAP PO SCH ×3 (10:08→20:47)
[2019-08-18] MEDS: POTASSIUM CHLORIDE 20 MEQ TABCR PO SCH ×2 (10:08→17:13)
[2019-08-18] MEDS: FINASTERIDE 5 MG TAB PO SCH (10:09)
[2019-08-18] MEDS: PANTOprazole 40 MG TAB PO SCH (10:09)
[2019-08-18] MEDS: predniSONE 5 MG TAB PO SCH (10:09)
[2019-08-18] MEDS: METOPROLOL SUCC 50MG EXT REL TAB PO SCH ×2 (10:10→20:50)
[2019-08-18] MEDS: BUDESONIDE/FORMOTEROL FUMARATE 160/4.5 60 PUFFS/INHALER INH SCH ×2 (10:10→20:49)
[2019-08-18] MEDS: INSULIN ASPART 100 UNITS/ML 3 ML PEN SC SCH ×4 (10:11→20:48)
[2019-08-18] MEDS: MoRPHine SULFATE CR 15 MG TABCR PO SCH ×2 (10:24→20:48)
[2019-08-18] MEDS: LORazepam 1 MG TAB PO PRN ×2 (10:24→17:29)
[2019-08-18] MEDS: TIOTROPIUM BROMIDE 5 PUFF/90 MCG INH INH SCH (11:06)
[2019-08-18] MEDS: PROMETHAZINE HCL 12.5 MG in SODIUM CHLORIDE 0.9% 50 ML IV PRN (11:45)
--- NOTE | 2019-08-18 13:06 | Hospitalist Progress Note ---
Date of Service August 18, 2019 Assessment & Plan (1) Sepsis: Likely secondary to leg cellulitis vs UTI Improved on antibiotics and appears resuscitated from a sepsis standpoint. Remains afebrile and white count has improved We will continue current antibiotic for now Antibiotics changed to oral Augmentin as per sensitivity No signs of ongoing infection We will continue Augmentin for about 14 days in total We will give probiotics as well (2) Catheter-associated urinary tract infection: zabala-sensitive E. faecalis. Cont Dapto and cefepime pending other blood culture results. Blood cultures have been negative We will discontinue Dapto and cefepime Will start Augmentin to cover staph and UTI We will continue antibiotic for a total of 14 days (3) Cellulitis of both lower extremities: Much improved today. Erythema is completely resolved surrounding the wounds which are growing S. aureus. Wound care nurse consult. Continue Dapto and cefepime pending cultures and continued clinical improveme nt. Blood cultures have been negative Wound culture staph aureus sensitive to oxacillin Urine culture Enterococcus faecalis sensitive to ampicillin Will start Augmentin to continue for a total of 14 days Cellulitis of the legs have resolved (4) Acute right-sided congestive heart failure: Acute on chronic diastolic CHF/acute on chronic CHF with preserved EF. Net 5L negative overnight and having hand cramping likely as a result of the aggressive diuresis efforts. Cont Mg and potassium supplementation as needed. Continue spironolactone per home regimen. Daily standing weights. Strict I/Os. Cont fluid restriction and sodium restricted diet. Appreciate cardiology input and recommendation Diuresing enough Creatinine remains stable Continue current dose of Lasix and he is responding to it without any renal impairment No acute cardiac symptoms and has been diuresing well (5) DM type 2 (diabetes mellitus, type 2): Inpatient glucose controlled, however, A1C is 8.0. Patient is currently "diet-controlled" at home which is very inappropriate. Appreciate pharmacist management of diabetes No acute issue (6) Anemia: Chronic and at baseline. Continue to monitor periodically. (7) Opioid dependence: Continue home regimen of morphine 15 mg p.o. twice daily with oxycodone for breakthrough pain. The patient has a significant history of drug-seeking behaviors and pain management specialists in this institution recommend that he is a poor candidate for long-term utilization of narcotics secondary to nonmalignant pain and a history of noncompliance with medical treatment. Will wean from narcotics with the following regimen, recommended back in May 2019 by plant technical specialist. Decrease oxycodone to 15mg PO q8h PRN x 2 days, then 15mg PO q12h x 2 days, then stop. Cont MS [id number] PO q12h during this time, and after oxycodone is off, change MS Contin to 15 daily x 7 days, then stop. Add clonidine 0.1mg/wk patch and remeron nightly. Imodium for diarrhea as needed. Recommend the patient seek inpatient or outpatient drug and alcohol counseling to assist with his opiate dependency. We will discuss with the Dr. Adam and Dr. Valencia for continuation of narcotics as he was prescribed from [facility] For now we will continue as per the plan [facility] will not take him so Dr. Adam and/or Dr. Valencia will not be able to write the prescription of narcotics Will stress to continue with weaning protocol of narcotics with the patient We will continue to follow the weaning protocol for narcotics I will discuss with Dr. Carter for any dose that can be given before the physical therapy Discussed with Dr. Carter and his short-acting pain medication will be given before participating with physical therapy (8) COPD (chronic obstructive pulmonary disease): Chronic, appears stable but he did have some wheezing on exam which is improved. Not in exacerbation. He is steroid dependent. Continue Spiriva, Breo and prednisone. Cont nebulizers and move to PRN dosing. (9) Chronic chest pain: Initial troponin trend was negative. At least 2 EKGs with sinus tachycardia and no evidence of acute ischemia. Patient has a history of chronic chest pain. Cont Imdur per home regimen. Continue supportive care. As above (10) Morbid obesity: Advised lifestyle change starting with portion control. Patient is looking into options for bariatric surgery. (11) Depression with anxiety: Likely result of multiple comorbidities, including chronic pain with chronic narcotic use. Continue home Cymbalta. (12) History of pulmonary embolism: INR therapeutic, cont coumadin. Heparin drip stopped. Will restart Coumadin from today (13) Tobacco abuse: Advised to quit smoking. Continue NicoDerm. Contemplative phase. (14) DVT prophylaxis: coumadin Full code Disposition-pending clinical improvement. PT/OT to assess safety to go home. Of note, patient was recently at [facility] and demonstrated very poor participation in rehabilitation efforts. If rehab is a consideration at time of discharge, would recommend discussing with Dr. Adam in detail prior to moving him back to [facility] as an option. [facility] will not take the patient Trying for [facility] as per window caser Discussed with the finance Will need to have another multidisciplinary milk meeting on Wednesday. Subjective 08/15 The patient was seen and examined in telemetry unit He complains to have ongoing pain at the back Shortness of breath and leg edema with cellulitis have improved a lot 08/16 The patient was seen and examined in the telemetry unit His heart failure and leg swelling including UTI have been improving His pain has not been controlled and he cannot participate in any physical therapy without the pain medications He was strongly advised to follow the weaning guideline of narcotics as per Dr. Carter, the pain therapist 08/17 The patient was seen and examined in telemetry unit He has been feeling a lot better regarding his breathing and swelling of the legs He complains to have increasing pain at the back and cannot participate in physical therapy due to that 08/18 The patient was seen and examined in telemetry unit He is not having any cardiac and/or respiratory symptoms and his infection and CHF seems to be under control Complains to have more pain at the back and cannot participate in The case was discussed with Dr Carter, the pain therapist and was advised to give the short-acting narcotics before physical therapy but we will continue to wean off the medication as planned. He has been crying with pain in front of me Complaints to have some sore throat, nystatin has been prescribed Review of Systems Review of Systems: All systems reviewed and are unremarkable except as noted below Physical Exam Physical Exam: Lying in bed comfortably Constitutional: well developed, well nourished, + ill appearing and + morbidly obese; no acute distress Eyes: PERRL, conjunctivae normal, anicteric sclerae ENMT: external ear and nose normal, oropharynx normal Neck: trachea midline, no thyromegaly Respiratory: normal respiratory effort; no respiratory distress Auscultation: + diminished lung sounds and + crackles (Minimal crackles at the bases) Cardiovascular: Rate/Rhythm: regular rate and regular rhythm Heart Sounds: no murmur Extremities: + edema; no calf tenderness Gastrointestinal (Abdomen): Inspection/Auscultation: abdomen normal to inspection and normal bowel sounds Percussion/Palpation: abdomen soft; a bdomen nontender Musculoskeletal: No acute arthritis in any joints Lymphatic: no cervical or axillary lymphadenopathy Results & Data Vital Signs (Past 12 Hours) Vital Signs Temp Pulse Resp BP Pulse Ox 08/18/19 11:34 36.8 C 85 20 172/74 H 95 08/18/19 07:05 36.7 C 89 20 156/80 H 94 08/18/19 03:50 36.6 C 81 16 150/86 H 92 Laboratory Results [facility] 08/18/19 05:46 Sodium 138 Potassium 3.7 Chloride 102 Carbon Dioxide 31 BUN 18 Creatinine 1.08 Glucose 176 H Calcium 9.6 Medications Administered Current Inpatient Medications Albuterol (Duoneb) 3 ml NEB QIDR PRN PRN Reason: SOB/wheezing Stop: 09/12/19 18:59 Amoxicillin/Clavulanate Potassium (Augmentin 875mg) 1 tab PO BIDM [facility] Stop: 08/25/19 16:59 Last Admin: 08/18/19 10:03 Dose: 1 tab Documented by: Aspirin (Ecotrin Ectab) [facility] [place] Stop: 09/11/19 08:59 Last Admin: 08/18/19 10:07 Dose: 81 mg Documented by: Budesonide/Formoterol Fumarate (Symbicort 160mcg/4.5mcg) 2 puffs INH BID [facility] Stop: 09/15/19 20:59 Last Admin: 08/18/19 10:10 Dose: 2 puffs Documented by: Clonidine HCl (Qieydbxo-Lvl-0 0.1mg/24hr) 1 patch TD Mo@1630 [facility] Stop: 09/13/19 16:29 Last Admin: 08/14/19 18:27 Dose: Not Given Documented by: Dextrose (Dextrose 50%) 25 - 50 ml IV UD PRN; Protocol PRN Reason: Hypoglycemia Protocol Stop: 09/10/19 23:05 Docusate Sodium (Colace) 100 mg PO BID [facility] Stop: 09/11/19 08:59 Last Admin: 08/18/19 10:06 Dose: 100 mg Documented by: Duloxetine HCl (Cymbalta) 60 mg PO QAM [facility] Stop: 09/11/19 08:59 Last Admin: 08/18/19 10:07 Dose: 60 mg Documented by: Finasteride (Proscar) 5 mg PO QAM [facility] Stop: 09/11/19 08:59 Last Admin: 08/18/19 10:09 Dose: 5 mg Documented by: Fluticasone Propionate (Flonase) 2 sprays NA QAM [facility] Stop: 09/11/19 08:59 Last Admin: 08/18/19 10:07 Dose: 2 sprays Documented by: Gabapentin (Neurontin) 300 mg PO TID [facility] Stop: 09/11/19 08:59 Last Admin: 08/18/19 10:08 Dose: 300 mg Documented by: Glucagon (Glucagen) 1 mg SQ UD PRN; Protocol PRN Reason: Hypoglycemia Protocol Stop: 09/10/19 23:05 Glucose (Glucose 40%) 15 - 30 gm PO UD PRN; Protocol PRN Reason: Hypoglycemia Protocol Stop: 09/10/19 23:05 Glucose (Dex4 Glucose) 4 - 8 tabs PO UD PRN; Protocol PRN Reason: Hypoglycemia Protocol Stop: 09/10/19 23:05 Hydroxyzine HCl (Vistaril) 25 mg PO QID PRN PRN Reason: Anxiety Stop: 09/10/19 23:05 Last Admin: 08/17/19 09:03 Dose: 25 mg Documented by: Promethazine HCl 12.5 mg/ (Sodium Chloride) 50.5 mls @ 202 mls/hr IV Q6H PRN PRN Reason: Nausea And Vomiting Stop: 09/10/19 23:05 Last Infusion: 08/18/19 12:20 Dose: Infused Documented by: Furosemide 40 mg/ Syringe 4 mls @ 4 mls/min IV Q8H [facility] Stop: 09/13/19 09:59 Last Admin: 08/18/19 10:10 Dose: 4 mls/min Documented by: Insulin Aspart (Novolog Flexpen) 0 units SC ACHS [facility] Stop: 09/10/19 23:29 Last Admin: 08/18/19 12:47 Dose: 5 units Documented by: Insulin Glargine (Lantus Solostar Pen) 5 units SC DAILY [facility] Stop: 09/11/19 08:59 Last Admin: 08/18/19 10:00 Dose: 5 units Documented by: Ipratropium [place]assa (Atrovent 0.02% 0.5mg/2.5ml) 0.5 mg INH Q4H PRN PRN Reason: SOB/WHEEZING Stop: 09/10/19 22:59 Isosorbide Mononitrate (Imdur Extended Rel) 30 mg PO DAILY [facility] Stop: 09/11/19 08:59 Last Admin: 08/18/19 10:07 Dose: 30 mg Documented by: Levalbuterol HCl (Xopenex 1.25mg/0.5ml Neb) 1.25 mg INH Q4H PRN PRN Reason: SOB/WHEEZING Stop: 09/10/19 22:59 Loperamide HCl (Imodium) 2 mg PO UD PRN PRN Reason: Diarrhea Stop: 09/13/19 16:39 Lorazepam (Ativan) 1 mg PO TID PRN PRN Reason: anxiety Stop: 09/10/19 23:18 Last Admin: 08/18/19 10:24 Dose: 1 mg Documented by: Magnesium Oxide (Mag-Ox) 400 mg PO DAILY@1700 [facility] Stop: 09/12/19 16:59 Last Admin: 08/17/19 17:28 Dose: 400 mg Documented by: Menthol (Nice) 1 lashon BUCCAL Q4H PRN PRN Reason: Sore Throat Stop: 09/14/19 13:55 Metoprolol Succinate (Toprol Xl) 50 mg PO BID [facility] Stop: 09/10/19 20:44 Last Admin: 08/18/19 10:10 Dose: 50 mg Documented by: Mirtazapine (Remeron) 15 mg PO HS [facility] Stop: 09/13/19 20:59 Last Admin: 08/17/19 19:58 Dose: Not Given Documented by: Miscellaneous (Remove Nicoderm Patch) 1 ea N/A DAILY@0859 [facility] Stop: 09/11/19 08:58 Last Admin: 08/18/19 10:05 Dose: 1 ea Documented by: Miscellaneous (Carbohydrates For Hypoglycemia) 15 - 30 gm PO UD PRN PRN Reason: Hypoglycemia Protocol Stop: 09/10/19 23:05 Miscellaneous (Check Clonidine Patch) 1 ea N/A QS [facility] Stop: 09/14/19 00:00 Last Admin: 08/18/19 10:03 Dose: Not Given Documented by: Miscellaneous (Remove Clonidine Patch) 1 ea N/A Mo@1629 [facility] Stop: 01/01/20 16:28 Morphine Sulfate (Ms Contin) 15 mg PO BID [facility] Stop: 08/18/19 23:14 Last Admin: 08/18/19 10:24 Dose: 15 mg Documented by: Morphine Sulfate (Ms Contin) 15 mg PO DAILY [facility] Stop: 08/25/19 09:01 Nicotine (Nicoderm Cq) 21 mg TD QAM [facility] Stop: 09/10/19 22:54 Last Admin: 08/18/19 10:04 Dose: 21 mg Documented by: Nitroglycerin (Nitrostat) 0.4 mg SL UD PRN PRN Reason: Chest Pain Stop: 09/10/19 23:05 Nystatin (Mycostatin) 10 ml PO QID [facility] Stop: 09/16/19 16:59 Last Admin: 08/18/19 12:48 Dose: 10 ml Documented by: Oxycodone HCl (Roxicodone Immediate Rel) 15 mg PO Q12H PRN PRN Reason: Pain Stop: 08/18/19 16:40 Last Admin: 08/18/19 05:58 Dose: 15 mg Documented by: Pantoprazole Sodium (Protonix) 40 mg PO QAM [facility] Stop: 09/11/19 08:59 Last Admin: 08/18/19 10:09 Dose: 40 mg Documented by: Polyethylene Glycol (Miralax Powder Packet) 17 gm PO DAILY PRN PRN Reason: Constipation Stop: 09/15/19 22:56 Potassium Chloride (Klor-Con M20) 20 meq PO BID17 [facility] Stop: 09/12/19 16:59 Last Admin: 08/18/19 10:08 Dose: 20 meq Documented by: Prednisone (Prednisone) 5 mg PO DAILY [facility] Stop: 09/11/19 08:59 Last Admin: 08/18/19 10:09 Dose: 5 mg Documented by: Spironolactone (Aldactone) 25 mg PO DAILY [facility] Stop: 09/11/19 08:59 Last Admin: 08/18/19 10:05 Dose: 25 mg Documented by: Tamsulosin HCl (Flomax) 0.4 mg PO DAILY [facility] Stop: 09/11/19 08:59 Last Admin: 08/18/19 10:06 Dose: 0.4 mg Documented by: Tiotropium Manassa (Spiriva) 1 puffs INH DAILY [facility] Stop: 09/11/19 08:59 Last Admin: 08/18/19 11:06 Dose: 1 puffs Documented by: Warfarin Sodium (Coumadin) 5 mg PO DAILY@1600 [facility] Stop: 09/15/19 15:59 Last Admin: 08/17/19 17:27 Dose: 5 mg Documented by: (1) Sepsis Sepsis acute organ dysfunction status: unspecified Sepsis type: sepsis due to unspecified organism Qualified Code(s): A41.9 - Sepsis, unspecified organism (2) Anemia Anemia type: unspecified type Qualified Code(s): D64.9 - Anemia, unspecified (3) COPD (chronic obstructive pulmonary disease) COPD type: emphysema Emphysema type: unspecified Qualified Code(s): J43.9 - Emphysema, unspecified
[2019-08-18] MEDS: WARFARIN SOD 5 MG TAB PO SCH (15:53)
[2019-08-18] MEDS: MAGNESIUM OXIDE 400 MG TAB PO SCH (17:15)
[2019-08-18] MEDS ORDERED: MoRPHine SULFATE 4 MG/ML 1 ML CARP\\VIAL IV STA (18:41)
[2019-08-18] MEDS: MIRTAZAPINE TAB 15 MG TAB PO SCH (20:44)
[2019-08-18] MEDS ORDERED: MoRPHine SULFATE 4 MG/ML 1 ML CARP\\VIAL IV ONE (23:55)
[2019-08-19] MEDS: LORazepam 1 MG TAB PO PRN ×4 (00:16→21:17)
[2019-08-19] MEDS: CHECK CLONIDINE PATCH PLACEMENT SCH ×3 (00:51→16:07)
[2019-08-19] MEDS: FUROSEMIDE 40 MG in SYRINGE 0 ML IV SCH ×3 (01:13→17:20)
[2019-08-19] MEDS: PROMETHAZINE HCL 12.5 MG in SODIUM CHLORIDE 0.9% 50 ML IV PRN ×3 (02:35→20:09)
[2019-08-19 06:52] LABS: Basophils # (auto) 0.05 K/uL (0-0.2); Basophils % (auto) 0.4 %; Eosinophils # (auto) 0.38 K/uL (0-0.5); Eosinophils % (auto) 2.9 %; Hematocrit (blood only) 34.9 % (42-52); Hemoglobin 10.5 g/dL (14.0-18.0); Immature Granulocytes # (auto) 0.08 K/uL (0.00-0.02); Immature Granulocytes % (auto) 0.6 %; Lymphocytes # (auto) 2.67 K/uL (1.2-3.4); Lymphocytes % (auto) 20.2 %; Mean Corpuscular Hemoglobin 23.1 pg (25-34); Mean Corpuscular Hgb Conc 30.1 g/dL (32-36); Mean Corpuscular Volume 76.9 fL (80-100); Mean Platelet Volume 9.6 fL (7.4-10.4); Monocytes # (auto) 0.76 K/uL (0.11-0.59); Monocytes % (auto) 5.7 %; Neutrophils # (auto) 9.31 K/uL (1.4-6.5); Neutrophils % (auto) 70.2 %; Platelet Count 255 K/uL (130-400); RDW Coefficient of Variation 18.6 % (11.5-14.5); RDW Standard Deviation 52.4 fL (36.4-46.3); Red Blood Count 4.54 M/uL (4.7-6.1); White Blood Count 13.25 K/uL (4.8-10.8)
[2019-08-19 07:12] LABS: INR 1.7 (0.9-1.1)
[2019-08-19 07:25] LABS: BUN Creatinine Ratio 17.1 (10-20); Calcium 9.6 mg/dl (8.5-10.1); Creatinine Clr Calc Pharmacy 140.8 ml/min; Est GFR (African American) 86.1; Est GFR (Non-African American) 74.3; Potassium 3.8 mmol/L (3.5-5.1)
[2019-08-19] MEDS: INSULIN ASPART 100 UNITS/ML 3 ML PEN SC SCH ×4 (09:28→21:31)
[2019-08-19] MEDS: INSULIN GLARGINE SOLOSTAR 100 UNITS/ML 3 ML PEN SC SCH (09:29)
[2019-08-19] MEDS: MoRPHine SULFATE CR 15 MG TABCR PO SCH (09:30)
[2019-08-19] MEDS: AMOXICILLIN/CLAVULANATE 875 MG TAB PO SCH ×2 (09:30→17:20)
[2019-08-19] MEDS: NICOTINE 21 MG/24 HR TDSY TD SCH (09:31)
[2019-08-19] MEDS: SPIRONOLACTONE 25 MG TAB PO SCH (09:40)
[2019-08-19] MEDS: ASPIRIN 81 MG ECTAB PO SCH (09:40)
[2019-08-19] MEDS: DOCUSATE SODIUM 100 MG CAP PO SCH ×2 (09:40→20:11)
[2019-08-19] MEDS: DULOXETINE HCL 60 MG CAP PO SCH (09:40)
[2019-08-19] MEDS: POTASSIUM CHLORIDE 20 MEQ TABCR PO SCH ×2 (09:41→17:20)
[2019-08-19] MEDS: FLUTICASONE PROPIONATE NA SPR 16 GM BTL SCH (09:41)
[2019-08-19] MEDS: TAMSULOSIN HCL 0.4 MG CAP PO SCH (09:41)
[2019-08-19] MEDS: ISOSORBIDE MONO EXTENDED REL 30 MG TABCR PO SCH (09:41)
[2019-08-19] MEDS: PANTOprazole 40 MG TAB PO SCH (09:50)
[2019-08-19] MEDS: FINASTERIDE 5 MG TAB PO SCH (09:50)
[2019-08-19] MEDS: predniSONE 5 MG TAB PO SCH (09:50)
[2019-08-19] MEDS: GABAPENTIN 300 MG CAP PO SCH ×3 (09:50→20:10)
[2019-08-19] MEDS: NYSTATIN SUSP 500,000 U/5 ML UDC PO SCH ×4 (09:50→20:11)
[2019-08-19] MEDS: METOPROLOL SUCC 50MG EXT REL TAB PO SCH ×2 (09:51→20:11)
[2019-08-19] MEDS: TIOTROPIUM BROMIDE 5 PUFF/90 MCG INH INH SCH (09:51)
[2019-08-19] MEDS: BUDESONIDE/FORMOTEROL FUMARATE 160/4.5 60 PUFFS/INHALER INH SCH ×2 (09:51→20:11)
[2019-08-19] MEDS ORDERED: MoRPHine SULFATE IR 15 MG TAB (IMMEDIATE RELEASE) PO STA (13:25)
--- NOTE | 2019-08-19 15:40 | Hospitalist Progress Note ---
Date of Service August 19, 2019 Assessment & Plan (1) Chronic chest pain: Initial troponin trend was negative. At least 2 EKGs with sinus tachycardia and no evidence of acute ischemia. Patient has a history of chronic chest pain. Cont Imdur per home regimen. Continue supportive care. Has been complaining of chest pain since last evening Sublingual nitro did not relieve the pain Received 1 dose of intravenous morphine 4 mg last evening EKG and troponin are unremarkable Complaint to have chest pain again this morning EKG and troponin were unremarkable No more intravenous morphine for chest pain (2) Sepsis: Likely secondary to leg cellulitis vs UTI Improved on antibiotics and appears resuscitated from a sepsis standpoint. Remains afebrile and white count has improved We will continue current antibiotic for now Antibiotics changed to oral Augmentin as per sensitivity No signs of ongoing infection We will continue Augmentin for about 14 days in total We will give probiotics as well (3) Catheter-associated urinary tract infection: zabala-sensitive E. faecalis. Cont Dapto and cefepime pending other blood culture results. Blood cultures have been negative We will discontinue Dapto and cefepime Will start Augmentin to cover staph and UTI We will continue antibiotic for a total of 14 days (4) Cellulitis of both lower extremities: Much improved today. Erythema is completely resolved surrounding the wounds which are growing S. aureus. Wound care nurse consult. Continue Dapto and cefepime pending cultures and continued clinical improvemen t. Blood cultures have been negative Wound culture staph aureus sensitive to oxacillin Urine culture Enterococcus faecalis sensitive to ampicillin Will start Augmentin to continue for a total of 14 days Cellulitis of the legs have resolved (5) Acute right-sided congestive heart failure: Acute on chronic diastolic CHF/acute on chronic CHF with preserved EF. Net 5L negative overnight and having hand cramping likely as a result of the aggressive diuresis efforts. Cont Mg and potassium supplementation as needed. Continue spironolactone per home regimen. Daily standing weights. Strict I/Os. Cont fluid restriction and sodium restricted diet. Appreciate cardiology input and recommendation Diuresing enough Creatinine remains stable Continue current dose of Lasix and he is responding to it without any renal impairment No acute cardiac symptoms and has been diuresing well (6) DM type 2 (diabetes mellitus, type 2): Inpatient glucose controlled, however, A1C is 8.0. Patient is currently "diet-controlled" at home which is very inappropriate. Appreciate pharmacist management of diabetes No acute issue (7) Anemia: Chronic and at baseline. Continue to monitor periodically. (8) Opioid dependence: Continue home regimen of morphine 15 mg p.o. twice daily with oxycodone for breakthrough pain. The patient has a significant history of drug-seeking behaviors and pain management specialists in this institution recommend that he is a poor candidate for long-term utilization of narcotics secondary to nonmalignant pain and a history of noncompliance with medical treatment. Will wean from narcotics with the following regimen, recommended back in May 2019 by global marketing specialist. Decrease oxycodone to 15mg PO q8h PRN x 2 days, then 15mg PO q12h x 2 days, then stop. Cont MS [id number] PO q12h during this time, and after oxycodone is off, change MS Contin to 15 daily x 7 days, then stop. Add clonidine 0.1mg/wk patch and remeron nightly. Imodium for diarrhea as needed. Recommend the patient seek inpatient or outpatient drug and alcohol counseling to assist with his opiate dependency. We will discuss with the Dr. Adam and Dr. Valencia for continuation of narcotics as he was prescribed from [facility] For now we will continue as per the plan [facility] will not take him so Dr. Adam and/or Dr. Valencia will not be able to write the prescription of narcotics Will stress to continue with weaning protocol of narcotics with the patient We will continue to follow the weaning protocol for narcotics I will discuss with Dr. Carter for any dose that can be given before the physical therapy Discussed with Dr. Carter and his short-acting pain medication will be given before participating with physical therapy Continue with the weaning protocol Still has been receiving 1 dose of MSIR before physical therapy (9) COPD (chronic obstructive pulmonary disease): Chronic, appears stable but he did have some wheezing on exam which is improved. Not in exacerbation. He is steroid dependent. Continue Spiriva, Breo and prednisone. Cont nebulizers and move to PRN dosing. (10) Morbid obesity: Advised lifestyle change starting with portion control. Patient is looking into options for bariatric surgery. (11) Depression with anxiety: Likely result of multiple comorbidities, including chronic pain with chronic narcotic use. Continue home Cymbalta. (12) History of pulmonary embolism: INR therapeutic, cont coumadin. Heparin drip stopped. Will restart Coumadin from today (13) Tobacco abuse: Advised to quit smoking. Continue NicoDerm. Contemplative phase. (14) DVT prophylaxis: coumadin Full code Disposition-pending clinical improvement. PT/OT to assess safety to go home. Of note, patient was recently at [facility] and demonstrated very poor participation in rehabilitation efforts. If rehab is a consideration at time of discharge, would recommend discussing with Dr. Adam in detail prior to moving him back to [facility] as an option. [facility] will not take the patient Trying for [facility] as per clinical case manager Discussed with the finance Will need to have another multidisciplinary milk meeting on Wednesday. Subjective 08/15 The patient was seen and examined in telemetry unit He complains to have ongoing pain at the back Shortness of breath and leg edema with cellulitis have improved a lot 08/16 The patient was seen and examined in the telemetry unit His heart failure and leg swelling including UTI have been improving His pain has not been controlled and he cannot participate in any physical therapy without the pain medications He was strongly advised to follow the weaning guideline of narcotics as per Dr. Carter, the pain therapist 08/17 The patient was seen and examined in telemetry unit He has been feeling a lot better regarding his breathing and swelling of the legs He complains to have increasing pain at the back and cannot participate in ph ysical therapy due to that 08/18 The patient was seen and examined in telemetry unit He is not having any cardiac and/or respiratory symptoms and his infection and CHF seems to be under control Complains to have more pain at the back and cannot participate in The case was discussed with Dr Carter, the pain therapist and was advised to give the short-acting narcotics before physical therapy but we will continue to wean off the medication as planned. He has been crying with pain in front of me Complaints to have some sore throat, nystatin has been prescribed 08/19 Patient was seen and examined in the telemetry unit He has been complaining of chest pain since last evening Denies any shortness of breath, any abdominal pain nausea or vomiting, and his leg swelling has been improving Review of Systems Review of Systems: All systems reviewed and are unremarkable except as noted below Cardiovascular: + chest pain (Without any evidence of ACS with repeated EKG and troponin testing) Physical Exam Physical Exam: Lying in bed and crying with pain Constitutional: well developed, well nourished, + ill appearing and + morbidly obese; no acute distress Eyes: PERRL, conjunctivae normal, anicteric sclerae ENMT: external ear and nose normal, oropharynx normal Neck: trachea midline, no thyromegaly Respiratory: normal respiratory effort; no respiratory distress Auscultation: + diminished lung sounds and + crackles (Minimal crackles at the bases) Cardiovascular: Rate/Rhythm: regular rate and regular rhythm Heart Sounds: no murmur Extremities: + edema; no calf tenderness Gastrointestinal (Abdomen): Inspection/Auscultation: abdomen normal to inspection and normal bowel sounds Percussion/Palpation: abdomen soft; abdomen nontender Musculoskeletal: No acute arthritis involving any joints Psychiatric: Affect: + depressed affect and + anxious affect Lymphatic: no cervical or axillary lymphadenopathy Results & Data Vital Signs (Past 12 Hours) Vital Signs Temp Pulse Resp BP Pulse Ox 08/19/19 11:05 36.7 C 89 20 145/85 H 93 08/19/19 07:23 36.4 C L 72 18 143/76 H 91 08/19/19 04:16 37.0 C 76 18 133/59 L 91 Laboratory Results Short CBC 08/19/19 Range/Units 06:34 WBC 13.25 H (4.8-10.8) K/uL Hgb 10.5 L (14.0-18.0) g/dL Hct 34.9 L (42-52) % Plt Count 255 (130-400) K/uL BMP 08/19/19 06:34 Sodium 138 Potassium 3.8 Chloride 102 Carbon Dioxide 30 BUN 20 H Creatinine 1.15 Glucose 134 H Calcium 9.6 Cardiac Enzymes 08/18/19 08/19/19 Range/Units 18:58 09:37 Troponin I < 0.015 < 0.015 (0-0.045) ng/ml Medications Administered Current Inpatient Medications Albuterol (Duoneb) 3 ml NEB QIDR PRN PRN Reason: SOB/wheezing Stop: 09/12/19 18:59 Amoxicillin/Clavulanate Potassium (Augmentin 875mg) 1 tab PO BIDM [facility] Stop: 08/25/19 16:59 Last Admin: 08/19/19 09:30 Dose: 1 tab Documented by: Aspirin (Ecotrin Ectab) 81 mg PO QAM [facility] Stop: 09/11/19 08:59 Last Admin: 08/19/19 09:40 Dose: 81 mg Documented by: Budesonide/Formoterol Fumarate (Symbicort 160mcg/4.5mcg) 2 puffs INH BID [facility] Stop: 09/15/19 20:59 Last Admin: 08/19/19 09:51 Dose: 2 puffs Documented by: Clonidine HCl ([id number] 0.1mg/24hr) 1 patch TD Mo@1630 [facility] Stop: 09/13/19 16:29 Last Admin: 08/14/19 18:27 Dose: Not Given Documented by: Dextrose (Dextrose 50%) 25 - 50 ml IV UD PRN; Protocol PRN Reason: Hypoglycemia Protocol Stop: 09/10/19 23:05 Docusate Sodium (Colace) 100 mg PO BID [facility] Stop: 09/11/19 08:59 Last Admin: 08/19/19 09:40 Dose: 100 mg Documented by: Duloxetine HCl (Cymbalta) 60 mg PO QAM [facility] Stop: 09/11/19 08:59 Last Admin: 08/19/19 09:40 Dose: 60 mg Documented by: Finasteride (Proscar) 5 mg PO QAM [facility] Stop: 09/11/19 08:59 Last Admin: 08/19/19 09:50 Dose: 5 mg Documented by: Fluticasone Propionate (Flonase) 2 sprays NA QAM [facility] Stop: 09/11/19 08:59 Last Admin: 08/19/19 09:41 Dose: 2 sprays Documented by: Gabapentin (Neurontin) 300 mg PO TID [facility] Stop: 09/11/19 08:59 Last Admin: 08/19/19 09:50 Dose: 300 mg Documented by: Glucagon (Glucagen) 1 mg SQ UD PRN; Protocol PRN Reason: Hypoglycemia Protocol Stop: 09/10/19 23:05 Glucose (Glucose 40%) 15 - 30 gm PO UD PRN; Protocol PRN Reason: Hypoglycemia Protocol Stop: 09/10/19 23:05 Glucose (Dex4 Glucose) 4 - 8 tabs PO UD PRN; Protocol PRN Reason: Hypoglycemia Protocol Stop: 09/10/19 23:05 Hydroxyzine HCl (Vistaril) 25 mg PO QID PRN PRN Reason: Anxiety Stop: 09/10/19 23:05 Last Admin: 08/18/19 20:55 Dose: 25 mg Documented by: Promethazine HCl 12.5 mg/ (Sodium Chloride) 50.5 mls @ 202 mls/hr IV Q6H PRN PRN Reason: Nausea And Vomiting Stop: 09/10/19 23:05 Last Infusion: 08/19/19 10:33 Dose: Infused Documented by: Furosemide 40 mg/ Syringe 4 mls @ 4 mls/min IV Q8H EMPERATRIZ Stop: 09/13/19 09:59 Last Admin: 08/19/19 09:52 Dose: 4 mls/min Documented by: Insulin Aspart (Novolog Flexpen) 0 units SC ACHS EMPERATRIZ Stop: 09/10/19 23:29 Last Admin: 08/19/19 12:16 Dose: 7 units Documented by: Insulin Glargine (Lantus Solostar Pen) 5 units SC DAILY [facility]RI[facility] Stop: 09/11/19 08:59 Last Admin: 08/19/19 09:29 Dose: 5 units Documented by: Ipratropium [place] (Atrovent 0.02% 0.5mg/2.5ml) 0.5 mg INH Q4H PRN PRN Reason: SOB/WHEEZING Stop: 09/10/19 22:59 Isosorbide Mononitrate (Imdur Extended Rel) 30 mg PO DAILY EMPERATRIZ Stop: 09/11/19 08:59 Last Admin: 08/19/19 09:41 Dose: 30 mg Documented by: Levalbuterol HCl (Xopenex 1.25mg/0.5ml Neb) 1.25 mg INH Q4H PRN PRN Reason: SOB/WHEEZING Stop: 09/10/19 22:59 Loperamide HCl (Imodium) 2 mg PO UD PRN PRN Reason: Diarrhea Stop: 09/13/19 16:39 Lorazepam (Ativan) 1 mg PO TID PRN PRN Reason: anxiety Stop: 09/10/19 23:18 Last Admin: 08/19/19 09:30 Dose: 1 mg Documented by: Magnesium Oxide (Mag-Ox) 400 mg PO DAILY@1700 [facility] Stop: 09/12/19 16:59 Last Admin: 08/18/19 17:15 Dose: 400 mg Documented by: Menthol (Nice) 1 lashon BUCCAL Q4H PRN PRN Reason: Sore Throat Stop: 09/14/19 13:55 Metoprolol Succinate (Toprol Xl) 50 mg PO BID [facility] Stop: 09/10/19 20:44 Last Admin: 08/19/19 09:51 Dose: 50 mg Documented by: Mirtazapine (Remeron) 15 mg PO HS [facility] Stop: 09/13/19 20:59 Last Admin: 08/18/19 20:44 Dose: Not Given Documented by: Miscellaneous (Remove Nicoderm Patch) 1 ea N/A DAILY@0859 [facility] Stop: 09/11/19 08:58 Last Admin: 08/19/19 09:31 Dose: 1 ea Documented by: Miscellaneous (Carbohydrates For Hypoglycemia) 15 - 30 gm PO UD PRN PRN Reason: Hypoglycemia Protocol Stop: 09/10/19 23:05 Miscellaneous (Check Clonidine Patch) 1 ea N/A QS [facility] Stop: 09/14/19 00:00 Last Admin: 08/19/19 09:30 Dose: Not Given Documented by: Miscellaneous (Remove Clonidine Patch) 1 ea N/A Mo@1629 [facility] Stop: 09/20/19 16:28 Morphine Sulfate (Ms Contin) 15 mg PO DAILY [facility] Stop: 08/25/19 09:01 Last Admin: 08/19/19 09:30 Dose: 15 mg Documented by: Nicotine (Nicoderm Cq) 21 mg TD QAM [facility] Stop: 09/10/19 22:54 Last Admin: 08/19/19 09:31 Dose: 21 mg Documented by: Nitroglycerin (Nitrostat) 0.4 mg SL UD PRN PRN Reason: Chest Pain Stop: 09/10/19 23:05 Nystatin (Mycostatin) 10 ml PO QID [facility] Stop: 09/16/19 16:59 Last Admin: 08/19/19 12:17 Dose: 10 ml Documented by: Pantoprazole Sodium (Protonix) 40 mg PO QAM [facility] Stop: 09/11/19 08:59 Last Admin: 08/19/19 09:50 Dose: 40 mg Documented by: Polyethylene Glycol (Miralax Powder Packet) 17 gm PO DAILY PRN PRN Reason: Constipation Stop: 09/15/19 22:56 Potassium Chloride (Klor-Con M20) 20 meq PO BID17 [facility] Stop: 09/12/19 16:59 Last Admin: 08/19/19 09:41 Dose: 20 meq Documented by: Prednisone (Prednisone) 5 mg PO DAILY EMPERATRIZ Stop: 09/11/19 08:59 Last Admin: 08/19/19 09:50 Dose: 5 mg Documented by: Spironolactone (Aldactone) 25 mg PO DAILY [facility]RI[facility] Stop: 09/11/19 08:59 Last Admin: 08/19/19 09:40 Dose: 25 mg Documented by: Tamsulosin HCl (Flomax) 0.4 mg PO DAILY [facility] Stop: 09/11/19 08:59 Last Admin: 08/19/19 09:41 Dose: 0.4 mg Documented by: Tiotropium [place] (Spiriva) 1 puffs INH DAILY [facility] Stop: 09/11/19 08:59 Last Admin: 08/19/19 09:51 Dose: 1 puffs Documented by: Warfarin Sodium (Coumadin) 5 mg PO DAILY@1600 [facility] Stop: 09/15/19 15:59 Last Admin: 08/18/19 15:53 Dose: 5 mg Documented by: (1) Sepsis Sepsis acute organ dysfunction status: unspecified Sepsis type: sepsis due to unspecified organism Qualified Code(s): A41.9 - Sepsis, unspecified organism (2) Anemia Anemia type: unspecified type Qualified Code(s): D64.9 - Anemia, unspecified (3) COPD (chronic obstructive pulmonary disease) COPD type: emphysema Emphysema type: unspecified Qualified Code(s): J43.9 - Emphysema, unspecified
[2019-08-19] MEDS: MAGNESIUM OXIDE 400 MG TAB PO SCH (17:20)
[2019-08-19] MEDS: WARFARIN SOD 5 MG TAB PO SCH (17:20)
[2019-08-19] MEDS: MIRTAZAPINE TAB 15 MG TAB PO SCH (20:12)
[2019-08-19] MEDS: POLYETHYLENE (MIRALAX) 17 GM PACK PO PRN (21:23)
[2019-08-20] MEDS: CHECK CLONIDINE PATCH PLACEMENT SCH ×4 (00:43→23:04)
[2019-08-20] MEDS: FUROSEMIDE 40 MG in SYRINGE 0 ML IV SCH ×3 (02:40→15:57)
[2019-08-20 06:30] LABS: INR 1.3 (0.9-1.1); Prothrombin Time 13.2 Seconds (9.0-12.0)
[2019-08-20] MEDS: INSULIN ASPART 100 UNITS/ML 3 ML PEN SC SCH ×4 (07:46→21:55)
[2019-08-20] MEDS: INSULIN GLARGINE SOLOSTAR 100 UNITS/ML 3 ML PEN SC SCH (07:48)
[2019-08-20] MEDS: DULOXETINE HCL 60 MG CAP PO SCH (07:49)
[2019-08-20] MEDS: ISOSORBIDE MONO EXTENDED REL 30 MG TABCR PO SCH (07:49)
[2019-08-20] MEDS: METOPROLOL SUCC 50MG EXT REL TAB PO SCH ×2 (07:49→21:34)
[2019-08-20] MEDS: GABAPENTIN 300 MG CAP PO SCH ×3 (07:49→21:33)
[2019-08-20] MEDS: DOCUSATE SODIUM 100 MG CAP PO SCH ×2 (07:49→21:34)
[2019-08-20] MEDS: LORazepam 1 MG TAB PO PRN ×3 (07:50→21:33)
[2019-08-20] MEDS: SPIRONOLACTONE 25 MG TAB PO SCH (07:50)
[2019-08-20] MEDS: ASPIRIN 81 MG ECTAB PO SCH (07:50)
[2019-08-20] MEDS: MoRPHine SULFATE CR 15 MG TABCR PO SCH (07:50)
[2019-08-20] MEDS: BUDESONIDE/FORMOTEROL FUMARATE 160/4.5 60 PUFFS/INHALER INH SCH ×2 (07:51→21:35)
[2019-08-20] MEDS: PANTOprazole 40 MG TAB PO SCH (07:51)
[2019-08-20] MEDS: NYSTATIN SUSP 500,000 U/5 ML UDC PO SCH ×4 (07:51→21:34)
[2019-08-20] MEDS: predniSONE 5 MG TAB PO SCH (07:51)
[2019-08-20] MEDS: TIOTROPIUM BROMIDE 5 PUFF/90 MCG INH INH SCH (07:51)
[2019-08-20] MEDS: POTASSIUM CHLORIDE 20 MEQ TABCR PO SCH ×2 (07:52→15:52)
[2019-08-20] MEDS: NICOTINE 21 MG/24 HR TDSY TD SCH (07:52)
[2019-08-20] MEDS: AMOXICILLIN/CLAVULANATE 875 MG TAB PO SCH ×2 (07:52→15:52)
[2019-08-20] MEDS: FINASTERIDE 5 MG TAB PO SCH (07:52)
[2019-08-20] MEDS: TAMSULOSIN HCL 0.4 MG CAP PO SCH (07:52)
[2019-08-20] MEDS: FLUTICASONE PROPIONATE NA SPR 16 GM BTL SCH (07:54)
[2019-08-20] MEDS ORDERED: MoRPHine SULFATE 4 MG/ML 1 ML CARP\\VIAL IV STA (09:30)
--- NOTE | 2019-08-20 10:56 | Hospitalist Progress Note ---
Date of Service August 20, 2019 Assessment & Plan (1) Chronic chest pain: Initial troponin trend was negative. At least 2 EKGs with sinus tachycardia and no evidence of acute ischemia. Patient has a history of chronic chest pain. Cont Imdur per home regimen. Continue supportive care. Has been complaining of chest pain since last evening Sublingual nitro did not relieve the pain Received 1 dose of intravenous morphine 4 mg last evening EKG and troponin are unremarkable Complaint to have chest pain again this morning EKG and troponin were unremarkable No more intravenous morphine for chest pain Has had chest pain last evening without any EKG and/or troponin changes Denies any more chest pain this morning (2) Sepsis: Likely secondary to leg cellulitis vs UTI Improved on antibiotics and appears resuscitated from a sepsis standpoint. Remains afebrile and white count has improved We will continue current antibiotic for now Antibiotics changed to oral Augmentin as per sensitivity No signs of ongoing infection We will continue Augmentin for about 14 days in total We will give probiotics as well (3) Catheter-associated urinary tract infection: zabala-sensitive E. faecalis. Cont Dapto and cefepime pending other blood culture results. Blood cultures have been negative We will discontinue Dapto and cefepime Will start Augmentin to cover staph and UTI We will continue antibiotic for a total of 14 days (4) Cellulitis of both lower extremities: Much improved today. Erythema is completely resolved surrounding the wounds which are growing S. aureus. Wound care nurse consult. Continue Dapto and cefepime pending cultures and continued clinical improvement. Blood cultures have been negative Wound culture staph aureus sensitive to oxacillin Urine culture Enterococcus faecalis sensitive to ampicillin Will start Augmentin to continue for a total of 14 days Cellulitis of the legs have resolved (5) Acute right-sided congestive heart failure: Acute on chronic diastolic CHF/acute on chronic CHF with preserved EF. Net 5L negative overnight and having hand cramping likely as a result of the aggressive diuresis efforts. Cont Mg and potassium supplementation as needed. Continue spironolactone per home regimen. Daily standing weights. Strict I/Os. Cont fluid restriction and sodium restricted diet. Appreciate cardiology input and recommendation Diuresing enough Creatinine remains stable Continue current dose of Lasix and he is responding to it without any renal impairment Denies any symptoms related to volume overload (6) DM type 2 (diabetes mellitus, type 2): Inpatient glucose controlled, however, A1C is 8.0. Patient is currently "diet-controlled" at home which is very inappropriate. Appreciate pharmacist management of diabetes No acute issue (7) Anemia: Chronic and at baseline. Continue to monitor periodically. (8) Opioid dependence: Continue home regimen of morphine 15 mg p.o. twice daily with oxycodone for breakthrough pain. The patient has a significant history of drug-seeking behaviors and pain management specialists in this institution recommend that he is a poor candidate for long-term utilization of narcotics secondary to nonmali gnant pain and a history of noncompliance with medical treatment. Will wean from narcotics with the following regimen, recommended back in May 2019 by sales administration specialist. Decrease oxycodone to 15mg PO q8h PRN x 2 days, then 15mg PO q12h x 2 days, then stop. Cont MS [id number] PO q12h during this time, and after oxycodone is off, change MS Contin to 15 daily x 7 days, then stop. Add clonidine 0.1mg/wk patch and remeron nightly. Imodium for diarrhea as needed. Recommend the patient seek inpatient or outpatient drug and alcohol counseling to assist with his opiate dependency. We will discuss with the Dr. Adam and Dr. Valencia for continuation of narcotics as he was prescribed from [facility] For now we will continue as per the plan [facility] will not take him so Dr. Adam and/or Dr. Valencia will not be able to write the prescription of narcotics Will stress to continue with weaning protocol of narcotics with the patient We will continue to follow the weaning protocol for narcotics I will discuss with Dr. Carter for any dose that can be given before the physical therapy Discussed with Dr. Carter and his short-acting pain medication will be given before participating with physical therapy Continue with the weaning protocol Still has been receiving 1 dose of MSIR before physical therapy Was given 1 dose of morphine 4 mg intravenously for increasing back pain with radiculopathy on 08/20 (9) COPD (chronic obstructive pulmonary disease): Chronic, appears stable but he did have some wheezing on exam which is improved. Not in exacerbation. He is steroid dependent. Continue Spiriva, Breo and prednisone. Cont nebulizers and move to PRN dosing. (10) Morbid obesity: Advised lifestyle change starting with portion control. Patient is looking into options for bariatric surgery. (11) Depression with anxiety: Likely result of multiple comorbidities, including chronic pain with chronic narcotic use. Continue home Cymbalta. (12) History of pulmonary embolism: INR therapeutic, cont coumadin. Heparin drip stopped. Will restart Coumadin from today INR is subtherapeutic today at 1.3 Discussed with the nurse to make sure that the medicine is taken by the patient when administered We will give an increased dose of Coumadin this afternoon (13) Tobacco abuse: Advised to quit smoking. Continue NicoDerm. Contemplative phase. (14) DVT prophylaxis: coumadin Full code Disposition-pending clinical improvement. PT/OT to assess safety to go home. Of note, patient was recently at [facility] and demonstrated very poor participation in rehabilitation efforts. If rehab is a consideration at time of discharge, would recommend discussing with Dr. Adam in detail prior to moving him back to [facility] as an option. [facility] will not take the patient Trying for [facility] as per social work case manager Discussed with the finance Will need to have another multidisciplinary meeting on Wednesday. Subjective 08/15 The patient was seen and examined in telemetry unit He complains to have ongoing pain at the back Shortness of breath and leg edema with cellulitis have improved a lot 08/16 The patient was seen and examined in the telemetry unit His heart failure and leg swelling including UTI have been improving His pain has not been controlled and he cannot participate in any physical therapy without the pain medications He was strongly advised to follow the weaning guideline of narcotics as per Dr. Carter, the pain therapist 08/17 The patient was seen and examined in telemetry unit He has been feeling a lot better regarding his breathing and swelling of the legs He complains to have increasing pain at the back and cannot participate in physical therapy due to that 08/18 The patient was seen and examined in telemetry unit He is not having any cardiac and/or respiratory symptoms and his infection and CHF seems to be under control Complains to have more pain at the back and cannot participate in The case was discussed with Dr Carter, the pain therapist and was advised to give the short-acting narcotics before physical therapy but we will continue to wean off the medication as planned. He has been crying with pain in front of me Complaints to have some sore throat, nystatin has been prescribed 08/19 Patient was seen and examined in the telemetry unit He has been complaining of chest pain since last evening Denies any shortness of breath, any abdominal pain nausea or vomiting, and his leg swelling has been improving 08/20 The patient was seen and examined in telemetry unit He has been complaining of a lot of back pain and the pain going down to the legs and is very anxious He cannot move around and cannot come out of bed due to significant pain We are trying to wean off his narcotics as planned Review of Systems Review of Systems: All systems reviewed and are unremarkable except as noted below Cardiovascular: + chest pain (Without any evidence of ACS with repeated EKG and troponin testing) Musculoskeletal: + back pain, + radicular pain and + joint pain Physical Exam Physical Exam: Lying in bed with moderate distress due to pain Constitutional: well developed, well nourished and + morbidly obese; no acute distress Eyes: PERRL, conjunctivae normal, anicteric sclerae ENMT: external ear and nose normal, oropharynx normal Neck: trachea midline, no thyromegaly Respiratory: normal respiratory effort; no respiratory distress Auscultation: + diminished lung sounds and + crackles (Minimal crackles at the bases) Cardiovascular: Rate/Rhythm: regular rate and regular rhythm Heart Sounds: no murmur Extremities: + edema; no calf tenderness Gastrointestinal (Abdomen): Inspection/Auscultation: abdomen normal to inspection and normal bowel sounds Percussion/Palpation: abdomen soft; abdomen nontender Musculoskeletal: Severe back pain with any movements of the legs Psychiatric: Affect: + depressed affect and + anxious affect Lymphatic: no cervical or axillary lymphadenopathy Results & Data Vital Signs (Past 12 Hours) Vital Signs Temp Pulse Pulse Resp BP Pulse Ox 08/20/19 07:44 36.6 C 77 16 153/85 H 94 08/20/19 03:40 36.8 C 84 20 134/67 91 08/19/19 23:46 37.0 C 95 H 22 130/66 94 Laboratory Results Cardiac Enzymes 08/19/19 Range/Units 19:18 Troponin I < 0.015 (0-0.045) ng/ml Medications Administered Current Inpatient Medications Albuterol (Duoneb) 3 ml NEB QIDR PRN PRN Reason: SOB/wheezing Stop: 09/12/19 18:59 Amoxicillin/Clavulanate Potassium (Augmentin 875mg) 1 tab PO BIDM EMPERATRIZ Stop: 08/25/19 16:59 Last Admin: 08/20/19 07:52 Dose: 1 tab Documented by: Aspirin (Ecotrin Ectab) 81 mg PO QAM [facility] Stop: 09/11/19 08:59 Last Admin: 08/20/19 07:50 Dose: 81 mg Documented by: Budesonide/Formoterol Fumarate (Symbicort 160mcg/4.5mcg) 2 puffs INH BID [facility] Stop: 09/15/19 20:59 Last Admin: 08/20/19 07:51 Dose: 2 puffs Documented by: Clonidine HCl ([id number] 0.1mg/24hr) 1 patch TD Mo@1630 [facility] Stop: 09/13/19 16:29 Last Admin: 08/14/19 18:27 Dose: Not Given Documented by: Dextrose (Dextrose 50%) 25 - 50 ml IV UD PRN; Protocol PRN Reason: Hypoglycemia Protocol Stop: 09/10/19 23:05 Docusate Sodium (Colace) 100 mg PO BID [facility] Stop: 09/11/19 08:59 Last Admin: 08/20/19 07:49 Dose: 100 mg Documented by: Duloxetine HCl (Cymbalta) 60 mg PO [facility] Stop: 09/11/19 08:59 Last Admin: 08/20/19 07:49 Dose: 60 mg Documented by: Finasteride (Proscar) 5 mg PO QAM [facility] Stop: 09/11/19 08:59 Last Admin: 08/20/19 07:52 Dose: 5 mg Documented by: Fluticasone Propionate (Flonase) 2 sprays NA QAM [facility] Stop: 09/11/19 08:59 Last Admin: 08/20/19 07:54 Dose: 2 sprays Documented by: Gabapentin (Neurontin) 300 mg PO TID [facility] Stop: 09/11/19 08:59 Last Admin: 08/20/19 07:49 Dose: 300 mg Documented by: Glucagon (Glucagen) 1 mg SQ UD PRN; Protocol PRN Reason: Hypoglycemia Protocol Stop: 09/10/19 23:05 Glucose (Glucose 40%) 15 - 30 gm PO UD PRN; Protocol PRN Reason: Hypoglycemia Protocol Stop: 09/10/19 23:05 Glucose (Dex4 Glucose) 4 - 8 tabs PO UD PRN; Protocol PRN Reason: Hypoglycemia Protocol Stop: 09/10/19 23:05 Hydroxyzine HCl (Vistaril) 25 mg PO QID PRN PRN Reason: Anxiety Stop: 09/10/19 23:05 Last Admin: 08/20/19 07:50 Dose: 25 mg Documented by: Promethazine HCl 12.5 mg/ (Sodium Chloride) 50.5 mls @ 202 mls/hr IV Q6H PRN PRN Reason: Nausea And Vomiting Stop: 09/10/19 23:05 Last Infusion: 08/19/19 20:36 Dose: Infused Documented by: Furosemide 40 mg/ Syringe 4 mls @ 4 mls/min IV Q8H EMPERATRIZ Stop: 09/13/19 09:59 Last Admin: 08/20/19 07:52 Dose: 4 mls/min Documented by: Insulin Aspart (Novolog Flexpen) 0 units SC ACHS EMPERATRIZ Stop: 09/10/19 23:29 Last Admin: 08/20/19 07:46 Dose: 3 units Documented by: Insulin Glargine (Lantus Solostar Pen) 5 units SC DAILY EMPERATRIZ Stop: 09/11/19 08:59 Last Admin: 08/20/19 07:48 Dose: 5 units Documented by: Ipratropium [place] (Atrovent 0.02% 0.5mg/2.5ml) 0.5 mg INH Q4H PRN PRN Reason: SOB/WHEEZING Stop: 09/10/19 22:59 Isosorbide Mononitrate (Imdur Extended Rel) 30 mg PO DAILY EMPERATRIZ Stop: 09/11/19 08:59 Last Admin: 08/20/19 07:49 Dose: 30 mg Documented by: Levalbuterol HCl (Xopenex 1.25mg/0.5ml Neb) 1.25 mg INH Q4H PRN PRN Reason: SOB/WHEEZING Stop: 09/10/19 22:59 Loperamide HCl (Imodium) 2 mg PO UD PRN PRN Reason: Diarrhea Stop: 09/13/19 16:39 Lorazepam (Ativan) 1 mg PO TID PRN PRN Reason: anxiety Stop: 09/10/19 23:18 Last Admin: 08/20/19 07:50 Dose: 1 mg Documented by: Magnesium Oxide (Mag-Ox) 400 mg PO DAILY@1700 [facility] Stop: 09/12/19 16:59 Last Admin: 08/19/19 17:20 Dose: 400 mg Documented by: Menthol (Nice) 1 lashon BUCCAL Q4H PRN PRN Reason: Sore Throat Stop: 09/14/19 13:55 Metoprolol Succinate (Toprol Xl) 50 mg PO BID [facility] Stop: 09/10/19 20:44 Last Admin: 08/20/19 07:49 Dose: 50 mg Documented by: Mirtazapine (Remeron) 15 mg PO HS [facility] Stop: 09/13/19 20:59 Last Admin: 08/19/19 20:12 Dose: Not Given Documented by: Miscellaneous (Remove Nicoderm Patch) 1 ea N/A DAILY@0859 [facility] Stop: 09/11/19 08:58 Last Admin: 08/20/19 07:54 Dose: 1 ea Documented by: Miscellaneous (Carbohydrates For Hypoglycemia) 15 - 30 gm PO UD PRN PRN Reason: Hypoglycemia Protocol Stop: 09/10/19 23:05 Miscellaneous (Check Clonidine Patch) 1 ea N/A QS [facility] Stop: 09/14/19 00:00 Last Admin: 08/20/19 07:54 Dose: Not Given Documented by: Miscellaneous (Remove Clonidine Patch) 1 ea N/A Mo@1629 [facility] Stop: 09/20/19 16:28 Morphine Sulfate (Ms Contin) 15 mg PO DAILY [facility] Stop: 08/25/19 09:01 Last Admin: 08/20/19 07:50 Dose: 15 mg Documented by: Nicotine (Nicoderm Cq) 21 mg TD QAM [facility] Stop: 09/10/19 22:54 Last Admin: 08/20/19 07:52 Dose: 21 mg Documented by: Nitroglycerin (Nitrostat) 0.4 mg SL UD PRN PRN Reason: Chest Pain Stop: 09/10/19 23:05 Nystatin (Mycostatin) 10 ml PO QID [facility] Stop: 09/16/19 16:59 Last Admin: 08/20/19 07:51 Dose: 10 ml Documented by: Pantoprazole Sodium (Protonix) 40 mg PO QAM [facility] Stop: 09/11/19 08:59 Last Admin: 08/20/19 07:51 Dose: 40 mg Documented by: Polyethylene Glycol (Miralax Powder Packet) 17 gm PO DAILY PRN PRN Reason: Constipation Stop: 09/15/19 22:56 Last Admin: 08/19/19 21:23 Dose: 17 gm Documented by: Potassium Chloride (Klor-Con M20) 20 meq PO BID17 [facility] Stop: 09/12/19 16:59 Last Admin: 08/20/19 07:52 Dose: 20 meq Documented by: Prednisone (Prednisone) 5 mg PO DAILY [facility] Stop: 09/11/19 08:59 Last Admin: 08/20/19 07:51 Dose: 5 mg Documented by: Spironolactone (Aldactone) 25 mg PO DAILY [facility] Stop: 09/11/19 08:59 Last Admin: 08/20/19 07:50 Dose: 25 mg Documented by: Tamsulosin HCl (Flomax) 0.4 mg PO DAILY [facility] Stop: 09/11/19 08:59 Last Admin: 08/20/19 07:52 Dose: 0.4 mg Documented by: Tiotropium [place] (Spiriva) 1 puffs INH DAILY [facility] Stop: 09/11/19 08:59 Last Admin: 08/20/19 07:51 Dose: 1 puffs Documented by: Warfarin Sodium (Coumadin) 7.5 mg PO DAILY@1600 [facility] Stop: 09/19/19 15:59 (1) Sepsis Sepsis acute organ dysfunction status: unspecified Sepsis type: sepsis due to unspecified organism Qualified Code(s): A41.9 - Sepsis, unspecified organism (2) Anemia Anemia type: unspecified type Qualified Code(s): D64.9 - Anemia, unspecified (3) COPD (chronic obstructive pulmonary disease) COPD type: emphysema Emphysema type: unspecified Qualified Code(s): J43.9 - Emphysema, unspecified
[2019-08-20] MEDS: PROMETHAZINE HCL 12.5 MG in SODIUM CHLORIDE 0.9% 50 ML IV PRN ×2 (14:36→21:33)
[2019-08-20] MEDS: MAGNESIUM OXIDE 400 MG TAB PO SCH (15:52)
[2019-08-20] MEDS: WARFARIN SOD 7.5 MG TAB PO SCH (15:54)
[2019-08-20] MEDS: MIRTAZAPINE TAB 15 MG TAB PO SCH (21:34)
[2019-08-21] MEDS: FUROSEMIDE 40 MG in SYRINGE 0 ML IV SCH ×3 (02:45→17:15)
[2019-08-21] MEDS: BUDESONIDE/FORMOTEROL FUMARATE 160/4.5 60 PUFFS/INHALER INH SCH ×2 (08:11→20:48)
[2019-08-21] MEDS: INSULIN GLARGINE SOLOSTAR 100 UNITS/ML 3 ML PEN SC SCH (08:14)
[2019-08-21] MEDS: INSULIN ASPART 100 UNITS/ML 3 ML PEN SC SCH ×4 (08:14→21:02)
[2019-08-21] MEDS: NICOTINE 21 MG/24 HR TDSY TD SCH (08:16)
[2019-08-21] MEDS: TIOTROPIUM BROMIDE 5 PUFF/90 MCG INH INH SCH (08:16)
[2019-08-21] MEDS: METOPROLOL SUCC 50MG EXT REL TAB PO SCH ×2 (08:17→20:47)
[2019-08-21] MEDS: NYSTATIN SUSP 500,000 U/5 ML UDC PO SCH ×4 (08:17→20:47)
[2019-08-21] MEDS: PANTOprazole 40 MG TAB PO SCH (08:17)
[2019-08-21] MEDS: GABAPENTIN 300 MG CAP PO SCH ×3 (08:17→20:46)
[2019-08-21] MEDS: FLUTICASONE PROPIONATE NA SPR 16 GM BTL SCH (08:17)
[2019-08-21] MEDS: ISOSORBIDE MONO EXTENDED REL 30 MG TABCR PO SCH (08:17)
[2019-08-21] MEDS: ASPIRIN 81 MG ECTAB PO SCH (08:18)
[2019-08-21] MEDS: DULOXETINE HCL 60 MG CAP PO SCH (08:18)
[2019-08-21] MEDS: predniSONE 5 MG TAB PO SCH (08:18)
[2019-08-21] MEDS: SPIRONOLACTONE 25 MG TAB PO SCH (08:18)
[2019-08-21] MEDS: CHECK CLONIDINE PATCH PLACEMENT SCH ×3 (08:18→23:50)
[2019-08-21] MEDS: FINASTERIDE 5 MG TAB PO SCH (08:18)
[2019-08-21] MEDS: AMOXICILLIN/CLAVULANATE 875 MG TAB PO SCH (08:18)
[2019-08-21] MEDS: DOCUSATE SODIUM 100 MG CAP PO SCH ×2 (08:18→20:45)
[2019-08-21] MEDS: TAMSULOSIN HCL 0.4 MG CAP PO SCH (08:18)
[2019-08-21] MEDS: POTASSIUM CHLORIDE 20 MEQ TABCR PO SCH ×2 (08:18→17:15)
[2019-08-21] MEDS: MoRPHine SULFATE CR 15 MG TABCR PO SCH (08:23)
[2019-08-21] MEDS: POLYETHYLENE (MIRALAX) 17 GM PACK PO PRN (08:42)
[2019-08-21 08:50] LABS: INR 1.2 (0.9-1.1); Prothrombin Time 11.8 Seconds (9.0-12.0)
[2019-08-21 09:02] LABS: BUN Creatinine Ratio 20.1 (10-20); Calcium 9.8 mg/dl (8.5-10.1); Creatinine Clr Calc Pharmacy 146.8 ml/min; Est GFR (African American) 89.9; Est GFR (Non-African American) 77.6; Potassium 3.6 mmol/L (3.5-5.1)
[2019-08-21] MEDS ORDERED: MoRPHine SULFATE IR 15 MG TAB (IMMEDIATE RELEASE) PO ONE (12:30)
[2019-08-21] MEDS ORDERED: OXYCODONE HCL IR 5 MG TAB (IMMEDIATE RELEASE) PO ONE (12:30)
[2019-08-21] MEDS: HEPARIN SOD 5,000 UNIT/0.5 ML VIAL SQ SCH ×2 (15:18→20:50)
[2019-08-21] MEDS: WARFARIN SOD 7.5 MG TAB PO SCH (15:24)
[2019-08-21] MEDS: cloNIDine HCL 0.1 MG/24 HR TRANSDERM SYS TD SCH (15:26)
--- NOTE | 2019-08-21 15:55 | Hospitalist Progress Note ---
Date of Service August 21, 2019 Assessment & Plan (1) Chronic chest pain: Initial troponin trend was negative. At least 2 EKGs with sinus tachycardia and no evidence of acute ischemia. Patient has a history of chronic chest pain. Cont Imdur per home regimen. Continue supportive care. Has been complaining of chest pain since last evening Sublingual nitro did not relieve the pain Received 1 dose of intravenous morphine 4 mg last evening EKG and troponin are unremarkable Complaint to have chest pain again this morning EKG and troponin were unremarkable No more intravenous morphine for chest pain Has had chest pain last evening without any EKG and/or troponin changes Denies any more chest pain this morning He will be seen by the pain therapist and head of service excellence sometime this afternoon Remains medically stable (2) Sepsis: Likely secondary to leg cellulitis vs UTI Improved on antibiotics and appears resuscitated from a sepsis standpoint. Remains afebrile and white count has improved We will continue current antibiotic for now Antibiotics changed to oral Augmentin as per sensitivity No signs of ongoing infection We will continue Augmentin for about 14 days in total We will give probiotics as well Augmentin has been discontinued from 08/21 (3) Catheter-associated urinary tract infection: zabala-sensitive E. faecalis. Cont Dapto and cefepime pending other blood culture results. Blood cultures have been negative We will discontinue Dapto and cefepime Will start Augmentin to cover staph and UTI We will continue antibiotic for a total of 14 days (4) Cellulitis of both lower extremities: Much improved today. Erythema is completely resolved surrounding the wounds which are growing S. aureus. Wound care nurse consult. Continue Dapto and cefepime pending cultures and continued clinical improvement. Blood cultures have been negative Wound culture staph aureus sensitive to oxacillin Urine culture Enterococcus faecalis sensitive to ampicillin Will start Augmentin to continue for a total of 14 days Cellulitis of the legs have resolved Discontinue Augmentin from today (5) Acute right-sided congestive heart failure: Acute on chronic diastolic CHF/acute on chronic CHF with preserved EF. Net 5L negative overnight and having hand cramping likely as a result of the aggressive diuresis efforts. Cont Mg and potassium supplementation as needed. Continue spironolactone per home regimen. Daily standing weights. Strict I/Os. Cont fluid restriction and sodium restricted diet. Appreciate cardiology input and recommendation Diuresing enough Creatinine remains stable Continue current dose of Lasix and he is responding to it without any renal impairment Denies any symptoms related to volume overload Has been getting usual dose of Lasix without any involvement of the kidney (6) DM type 2 (diabetes mellitus, type 2): Inpatient glucose controlled, however, A1C is 8.0. Patient is currently "diet-controlled" at home which is very inappropriate. Appreciate pharmacist management of diabetes No acute issue (7) Anemia: Chronic and at baseline. Continue to monitor periodically. (8) Opioid dependence: Continue home regimen of morphine 15 mg p.o. twice daily with oxycodone for breakthrough pain. The patient has a significant history of drug-seeking behaviors and pain management specialists in this institution recommend that he is a poor candidate for long-term utilization of narcotics secondary to nonmalignant pain and a history of noncompliance with medical treatment. Will wean from narcotics with the following regimen, recommended back in May 2019 by transformation specialist. Decrease oxycodone to 15mg PO q8h PRN x 2 days, then 15mg PO q12h x 2 days, then stop. Cont MS [id number] PO q12h during this time, and after oxycodone is off, change MS Contin to 15 daily x 7 days, then stop. Add clonidine 0.1mg/wk patch and remeron nightly. Imodium for diarrhea as needed. Recommend the patient seek inpatient or outpatient drug and alcohol counseling to assist with his opiate dependency. We will discuss with the Dr. Adam and Dr. Valencia for continuation of narcotics as he was prescribed from [facility] For now we will continue as per the plan [facility] will not take him so Dr. Adam and/or Dr. Valencia will not be able to write the prescription of narcotics Will stress to continue with weaning protocol of narcotics with the patient We will continue to follow the weaning protocol for narcotics I will discuss with Dr. Carter for any dose that can be given before the physical therapy Discussed with Dr. Carter and his short-acting pain medication will be given before participating with physical therapy Continue with the weaning protocol Still has been receiving 1 dose of MSIR before physical therapy Was given 1 dose of morphine 4 mg intravenously for increasing back pain with radiculopathy on 08/20 Will be given 1 dose of oxycodone 15 mg before the scheduled physical therapy He will be seen by the pain therapist sometime this afternoon (9) COPD (chronic obstructive pulmonary disease): Chronic, appears stable but he did have some wheezing on exam which is im proved. Not in exacerbation. He is steroid dependent. Continue Spiriva, Breo and prednisone. Cont nebulizers and move to PRN dosing. (10) Morbid obesity: Advised lifestyle change starting with portion control. Patient is looking into options for bariatric surgery. (11) Depression with anxiety: Likely result of multiple comorbidities, including chronic pain with chronic narcotic use. Continue home Cymbalta. (12) History of pulmonary embolism: INR therapeutic, cont coumadin. Heparin drip stopped. Will restart Coumadin from today INR is subtherapeutic today at 1.3 Discussed with the nurse to make sure that the medicine is taken by the patient when administered We will give an increased dose of Coumadin this afternoon (13) Tobacco abuse: Advised to quit smoking. Continue NicoDerm. Contemplative phase. (14) DVT prophylaxis: coumadin Full code Disposition-pending clinical improvement. PT/OT to assess safety to go home. Of note, patient was recently at [facility] and demonstrated very poor participation in rehabilitation efforts. If rehab is a consideration at time of discharge, would recommend discussing with Dr. Adam in detail prior to moving him back to [facility] as an option. [facility] will not take the patient Trying for [facility] as per skilled nursing case manager Discussed with the finance Arrangements are made to be seen by Dr. Carter and service excellence sometime this afternoon. Subjective 08/15 The patient was seen and examined in telemetry unit He complains to have ongoing pain at the back Shortness of breath and leg edema with cellulitis have improved a lot 08/16 The patient was seen and examined in the telemetry unit His heart failure and leg swelling including UTI have been improving His pain has not been controlled and he cannot participate in any physical therapy without the pain medications He was strongly advised to follow the weaning guideline of narcotics as per Dr. Carter, the pain therapist 08/17 The patient was seen and examined in telemetry unit He has been feeling a lot better regarding his breathing and swelling of the legs He complains to have increasing pain at the back and cannot participate in physical therapy due to that 08/18 The patient was seen and examined in telemetry unit He is not having any cardiac and/or respiratory symptoms and his infection and CHF seems to be under control Complains to have more pain at the back and cannot participate in The case was discussed with Dr Carter, the pain therapist and was advised to give the short-acting narcotics before physical therapy but we will continue to wean off the medication as planned. He has been crying with pain in front of me Complaints to have some sore throat, nystatin has been prescribed 08/19 Patient was seen and examined in the telemetry unit He has been complaining of chest pain since last evening Denies any shortness of breath, any abdominal pain nausea or vomiting, and his leg swelling has been improving 08/20 The patient was seen and examined in telemetry unit He has been complaining of a lot of back pain and the pain going down to the legs and is very anxious He cannot move around and cannot come out of bed due to significant pain We are trying to wean off his narcotics as planned 08/21 The patient was seen and examined in telemetry unit He has been complaining of more back pain with radiation and right leg pain He denies any shortness of breath, cough or wheezing His leg cellulitis has improved Review of Systems Review of Systems: All systems reviewed and are unremarkable except as noted below Musculoskeletal: + back pain, + radicular pain and + joint pain Physical Exam Physical Exam: Lying in bed comfortably Constitutional: well developed, well nourished and + morbidly obese; no acute distress Eyes: PERRL, conjunctivae normal, anicteric sclerae ENMT: external ear and nose normal, oropharynx normal Neck: trachea midline, no thyromegaly Respiratory: normal respiratory effort; no respiratory distress Auscultation: + diminished lung sounds and + crackles (Minimal crackles at the bases) Cardiovascular: Rate/Rhythm: regular rate and regular rhythm Heart Sounds: no murmur Extremities: + edema; no calf tenderness Gastrointestinal (Abdomen): Inspection/Auscultation: abdomen normal to inspection and normal bowel sounds Percussion/Palpation: abdomen soft; abdomen nontender Musculoskeletal: Complaining of ongoing back pain and leg pain Psychiatric: Affect: + depressed affect and + anxious affect Lymphatic: no cervical or axillary lymphadenopathy Results & Data Vital Signs (Past 12 Hours) Vital Signs Temp Pulse Pulse Resp BP BP Pulse Ox 08/21/19 11:49 36.8 C 93 H 22 117/68 95 08/21/19 08:00 36.7 C 88 16 135/79 95 Laboratory Results [facility] 08/21/19 08:22 Sodium 137 Potassium 3.6 Chloride 101 Carbon Dioxide 30 BUN 22 H Creatinine 1.11 Glucose 135 H Calcium 9.8 Medications Administered Current Inpatient Medications Albuterol (Duoneb) 3 ml NEB QIDR PRN PRN Reason: SOB/wheezing Stop: 09/12/19 18:59 Aspirin (Ecotrin Ectab) 81 mg PO QAM [facility] Stop: 09/11/19 08:59 Last Admin: 08/21/19 08:18 Dose: 81 mg Documented by: Budesonide/Formoterol Fumarate (Symbicort 160mcg/4.5mcg) 2 puffs INH BID [facility] Stop: 09/15/19 20:59 Last Admin: 08/21/19 08:11 Dose: 2 puffs Documented by: Clonidine HCl (Blchoddz-Arf-2 0.1mg/24hr) 1 patch TD Mo@1630 [facility] Stop: 09/13/19 16:29 Last Admin: 08/21/19 15:26 Dose: Not Given Documented by: Dextrose (Dextrose 50%) 25 - 50 ml IV UD PRN; Protocol PRN Reason: Hypoglycemia Protocol Stop: 09/10/19 23:05 Docusate Sodium (Colace) 100 mg PO BID [facility] Stop: 09/11/19 08:59 Last Admin: 08/21/19 08:18 Dose: 100 mg Documented by: Duloxetine HCl (Cymbalta) 60 mg PO QAM [facility] Stop: 09/11/19 08:59 Last Admin: 08/21/19 08:18 Dose: 60 mg Documented by: Finasteride (Proscar) 5 mg PO QAM [facility] Stop: 09/11/19 08:59 Last Admin: 08/21/19 08:18 Dose: 5 mg Documented by: Fluticasone Propionate (Flonase) 2 sprays NA QAM [facility] Stop: 09/11/19 08:59 Last Admin: 08/21/19 08:17 Dose: 2 sprays Documented by: Gabapentin (Neurontin) 300 mg PO TID [facility] Stop: 09/11/19 08:59 Last Admin: 08/21/19 15:18 Dose: 300 mg Documented by: Glucagon (Glucagen) 1 mg SQ UD PRN; Protocol PRN Reason: Hypoglycemia Protocol Stop: 09/10/19 23:05 Glucose (Glucose 40%) 15 - 30 gm PO UD PRN; Protocol PRN Reason: Hypoglycemia Protocol Stop: 09/10/19 23:05 Glucose (Dex4 Glucose) 4 - 8 tabs PO UD PRN; Protocol PRN Reason: Hypoglycemia Protocol Stop: 09/10/19 23:05 Heparin Sodium (Porcine) (Heparin Sodium (Porcine)) 5,000 units SQ Q8 [facility] Stop: 09/20/19 13:59 Last Admin: 08/21/19 15:18 Dose: 5,000 units Documented by: Hydroxyzine HCl (Vistaril) 25 mg PO QID PRN PRN Reason: Anxiety Stop: 09/10/19 23:05 Last Admin: 08/21/19 08:16 Dose: 25 mg Documented by: Promethazine HCl 12.5 mg/ (Sodium Chloride) 50.5 mls @ 202 mls/hr IV Q6H PRN PRN Reason: Nausea And Vomiting Stop: 09/10/19 23:05 Last Infusion: 08/20/19 21:57 Dose: Infused Documented by: Furosemide 40 mg/ Syringe 4 mls @ 4 mls/min IV Q8H [facility] Stop: 09/13/19 09:59 Last Admin: 08/21/19 10:20 Dose: 4 mls/min Documented by: Insulin Aspart (Novolog Flexpen) 0 units SC ACHS [facility] Stop: 09/10/19 23:29 Last Admin: 08/21/19 12:23 Dose: 5 units Documented by: Insulin Glargine (Lantus Solostar Pen) 5 units SC DAILY [facility] Stop: 09/11/19 08:59 Last Admin: 08/21/19 08:14 Dose: 5 units Documented by: Ipratropium [place] (Atrovent 0.02% 0.5mg/2.5ml) 0.5 mg INH Q4H PRN PRN Reason: SOB/WHEEZING Stop: 09/10/19 22:59 Isosorbide Mononitrate (Imdur Extended Rel) 30 mg PO DAILY [facility] Stop: 09/11/19 08:59 Last Admin: 08/21/19 08:17 Dose: 30 mg Documented by: Levalbuterol HCl (Xopenex 1.25mg/0.5ml Neb) 1.25 mg INH Q4H PRN PRN Reason: SOB/WHEEZING Stop: 09/10/19 22:59 Loperamide HCl (Imodium) 2 mg PO UD PRN PRN Reason: Diarrhea Stop: 09/13/19 16:39 Lorazepam (Ativan) 1 mg PO TID PRN PRN Reason: anxiety Stop: 09/10/19 23:18 Last Admin: 08/20/19 21:33 Dose: 1 mg Documented by: Magnesium Oxide (Mag-Ox) 400 mg PO DAILY@1700 [facility] Stop: 09/12/19 16:59 Last Admin: 08/20/19 15:52 Dose: 400 mg Documented by: Menthol (Nice) 1 lashon BUCCAL Q4H PRN PRN Reason: Sore Throat Stop: 09/14/19 13:55 Metoprolol Succinate (Toprol Xl) 50 mg PO BID [facility] Stop: 09/10/19 20:44 Last Admin: 08/21/19 08:17 Dose: 50 mg Documented by: Mirtazapine (Remeron) 15 mg PO HS [facility] Stop: 09/13/19 20:59 Last Admin: 08/20/19 21:34 Dose: Not Given Documented by: Miscellaneous (Remove Nicoderm Patch) 1 ea N/A DAILY@0859 [facility] Stop: 09/11/19 08:58 Last Admin: 08/21/19 08:18 Dose: 1 ea Documented by: Miscellaneous (Carbohydrates For Hypoglycemia) 15 - 30 gm PO UD PRN PRN Reason: Hypoglycemia Protocol Stop: 09/10/19 23:05 Miscellaneous (Check Clonidine Patch) 1 ea N/A QS [facility] Stop: 09/14/19 00:00 Last Admin: 08/21/19 15:25 Dose: Not Given Documented by: Miscellaneous (Remove Clonidine Patch) 1 ea N/A Mo@1629 [facility] Stop: 09/20/19 16:28 Last Admin: 08/21/19 15:25 Dose: Not Given Documented by: Morphine Sulfate (Ms Contin) 15 mg PO DAILY [facility] Stop: 08/25/19 09:01 Last Admin: 08/21/19 08:23 Dose: 15 mg Documented by: Nicotine (Nicoderm Cq) 21 mg TD QAM [facility] Stop: 09/10/19 22:54 Last Admin: 08/21/19 08:16 Dose: 21 mg Documented by: Nitroglycerin (Nitrostat) 0.4 mg SL UD PRN PRN Reason: Chest Pain Stop: 09/10/19 23:05 Nystatin (Mycostatin) 10 ml PO QID [facility] Stop: 09/16/19 16:59 Last Admin: 08/21/19 12:22 Dose: Not Given Documented by: Pantoprazole Sodium (Protonix) 40 mg PO QAM [facility] Stop: 09/11/19 08:59 Last Admin: 08/21/19 08:17 Dose: 40 mg Documented by: Polyethylene Glycol (Miralax Powder Packet) 17 gm PO DAILY PRN PRN Reason: Constipation Stop: 09/15/19 22:56 Last Admin: 08/21/19 08:42 Dose: 17 gm Documented by: Potassium Chloride (Klor-Con M20) 20 meq PO BID17 [facility] Stop: 09/12/19 16:59 Last Admin: 08/21/19 08:18 Dose: 20 meq Documented by: Prednisone (Prednisone) 5 mg PO DAILY [facility] Stop: 09/11/19 08:59 Last Admin: 08/21/19 08:18 Dose: 5 mg Documented by: Spironolactone (Aldactone) 25 mg PO DAILY [facility] Stop: 09/11/19 08:59 Last Admin: 08/21/19 08:18 Dose: 25 mg Documented by: Tamsulosin HCl (Flomax) 0.4 mg PO DAILY [facility] Stop: 09/11/19 08:59 Last Admin: 08/21/19 08:18 Dose: 0.4 mg Documented by: Tiotropium [place] (Spiriva) 1 puffs INH DAILY [facility] Stop: 09/11/19 08:59 Last Admin: 08/21/19 08:16 Dose: 1 puffs Documented by: Warfarin Sodium (Coumadin) 7.5 mg PO DAILY@1600 [facility] Stop: 09/19/19 15:59 Last Admin: 08/21/19 15:24 Dose: 7.5 mg Documented by: (1) Sepsis Sepsis acute organ dysfunction status: unspecified Sepsis type: sepsis due to unspecified organism Qualified Code(s): A41.9 - Sepsis, unspecified organism (2) Anemia Anemia type: unspecified type Qualified Code(s): D64.9 - Anemia, unspecified (3) COPD (chronic obstructive pulmonary disease) COPD type: emphysema Emphysema type: unspecified Qualified Code(s): J43.9 - Emphysema, unspecified
[2019-08-21] MEDS: MAGNESIUM OXIDE 400 MG TAB PO SCH (17:15)
[2019-08-21] MEDS: PROMETHAZINE HCL 12.5 MG in SODIUM CHLORIDE 0.9% 50 ML IV PRN (20:44)
[2019-08-21] MEDS: LORazepam 1 MG TAB PO PRN (20:44)
[2019-08-21] MEDS: MIRTAZAPINE TAB 15 MG TAB PO SCH (20:46)
[2019-08-22] MEDS: LORazepam 1 MG TAB PO PRN ×4 (00:15→21:18)
[2019-08-22] MEDS: FUROSEMIDE 40 MG in SYRINGE 0 ML IV SCH ×3 (02:14→17:56)
[2019-08-22] MEDS: HEPARIN SOD 5,000 UNIT/0.5 ML VIAL SQ SCH (05:54)
[2019-08-22 06:24] LABS: Basophils # (auto) 0.05 K/uL (0-0.2); Basophils % (auto) 0.4 %; Eosinophils # (auto) 0.35 K/uL (0-0.5); Eosinophils % (auto) 2.9 %; Hematocrit (blood only) 34.8 % (42-52); Hemoglobin 10.7 g/dL (14.0-18.0); Immature Granulocytes % (auto) 0.8 %; Lymphocytes # (auto) 2.45 K/uL (1.2-3.4); Lymphocytes % (auto) 20.5 %; Mean Corpuscular Hemoglobin 23.3 pg (25-34); Mean Corpuscular Hgb Conc 30.7 g/dL (32-36); Mean Corpuscular Volume 75.7 fL (80-100); Mean Platelet Volume 9.5 fL (7.4-10.4); Monocytes # (auto) 0.56 K/uL (0.11-0.59); Monocytes % (auto) 4.7 %; Neutrophils # (auto) 8.47 K/uL (1.4-6.5); Neutrophils % (auto) 70.7 %; Platelet Count 297 K/uL (130-400); RDW Coefficient of Variation 18.5 % (11.5-14.5); RDW Standard Deviation 51.3 fL (36.4-46.3); White Blood Count 11.98 K/uL (4.8-10.8)
[2019-08-22 06:33] LABS: INR 1.2 (0.9-1.1); Prothrombin Time 12.4 Seconds (9.0-12.0)
[2019-08-22 06:56] LABS: BUN Creatinine Ratio 19.2 (10-20); Calcium 9.7 mg/dl (8.5-10.1); Creatinine Clr Calc Pharmacy 121.2 ml/min; Est GFR (African American) 72.2; Est GFR (Non-African American) 62.3; Potassium 3.4 mmol/L (3.5-5.1)
[2019-08-22] MEDS ORDERED: Heparin IV Standard *NO* Bolus IV SCH (08:01)
[2019-08-22] MEDS ORDERED: POTASSIUM CHLORIDE 20 MEQ TABCR PO STA (08:24)
[2019-08-22] MEDS: DOCUSATE SODIUM 100 MG CAP PO SCH ×2 (08:58→20:33)
[2019-08-22] MEDS: DULOXETINE HCL 60 MG CAP PO SCH (08:58)
[2019-08-22] MEDS: NICOTINE 21 MG/24 HR TDSY TD SCH (08:58)
[2019-08-22] MEDS: NYSTATIN SUSP 500,000 U/5 ML UDC PO SCH ×4 (08:59→20:30)
[2019-08-22] MEDS: SPIRONOLACTONE 25 MG TAB PO SCH (08:59)
[2019-08-22] MEDS: PANTOprazole 40 MG TAB PO SCH (09:00)
[2019-08-22] MEDS: GABAPENTIN 300 MG CAP PO SCH ×3 (09:00→20:34)
[2019-08-22] MEDS: METOPROLOL SUCC 50MG EXT REL TAB PO SCH ×2 (09:00→20:31)
[2019-08-22] MEDS: TAMSULOSIN HCL 0.4 MG CAP PO SCH (09:00)
[2019-08-22] MEDS: predniSONE 5 MG TAB PO SCH (09:00)
[2019-08-22] MEDS: ISOSORBIDE MONO EXTENDED REL 30 MG TABCR PO SCH (09:00)
[2019-08-22] MEDS: FINASTERIDE 5 MG TAB PO SCH (09:00)
[2019-08-22] MEDS: ASPIRIN 81 MG ECTAB PO SCH (09:00)
[2019-08-22] MEDS: BUDESONIDE/FORMOTEROL FUMARATE 160/4.5 60 PUFFS/INHALER INH SCH ×2 (09:01→20:32)
[2019-08-22] MEDS: FLUTICASONE PROPIONATE NA SPR 16 GM BTL SCH (09:01)
[2019-08-22] MEDS: TIOTROPIUM BROMIDE 5 PUFF/90 MCG INH INH SCH (09:01)
[2019-08-22] MEDS: POTASSIUM CHLORIDE 20 MEQ TABCR PO SCH ×2 (09:01→16:12)
[2019-08-22] MEDS: INSULIN GLARGINE SOLOSTAR 100 UNITS/ML 3 ML PEN SC SCH (09:03)
[2019-08-22] MEDS: INSULIN ASPART 100 UNITS/ML 3 ML PEN SC SCH ×4 (09:04→20:35)
[2019-08-22] MEDS: MoRPHine SULFATE CR 15 MG TABCR PO SCH (09:20)
[2019-08-22] MEDS: HEPARIN SODIUM/DEXTROSE 25,000 UNITS/500 ML BAG IV SCH ×2 (09:23→20:30)
[2019-08-22] MEDS: POLYETHYLENE (MIRALAX) 17 GM PACK PO PRN (10:37)
[2019-08-22] MEDS: PROMETHAZINE HCL 12.5 MG in SODIUM CHLORIDE 0.9% 50 ML IV PRN ×2 (12:02→18:40)
[2019-08-22] MEDS: CHECK CLONIDINE PATCH PLACEMENT SCH ×2 (12:52→16:14)
[2019-08-22] MEDS: OXYCODONE HCL IR 5 MG TAB (IMMEDIATE RELEASE) PO PRN ×2 (16:09→19:05)
[2019-08-22] MEDS: WARFARIN SOD 7.5 MG TAB PO SCH (16:10)
[2019-08-22] MEDS: MAGNESIUM OXIDE 400 MG TAB PO SCH (16:11)
[2019-08-22 17:01] LABS: Partial Thromboplastin Ratio 2.2
--- NOTE | 2019-08-22 18:14 | Hospitalist Progress Note ---
Date of Service August 22, 2019 Assessment & Plan (1) Opioid dependence: 08/21/2019 This morning with multidisciplinary team involving pain therapist, [facility], liaison nurse and myself He has documented chronic back pain with radiculopathy and chronic foot pain We had a long discussion with the patient regarding his chronic pain and its management It was decided that he will need some narcotic pain medications to control pain as per the pain therapist He was warned against possible side effect of narcotics pain medications and its potential for addiction Decision was made to give him narcotic pain medications and was instructed to avoid biopsy rules by him Plan #1: He might need to be reevaluated by pain therapist for decreasing or increasing pain medications : He will be assigned to a possible [facility] PCP as an outpatient who will provide the narcotics as planned by the pain therapist : He will be discharged with an appointment with pain clinic in [place] with a referral discharge summary on discharge from the hospital : He will need to have periodic follow-up with the pain clinic in [place] if he is accepted. Plan #2: In case he is not been accepted to the pain clinic at [place] then he will be seen by Dr. Carter and his group for recommendation of narcotics : In this case he will need to have a [facility] PCP who will continue to prescribe if the narcotics for him and do the monitoring as an outpatient. This was clearly stated to the patient's and after discussion with Dr. Carter he was started with Oxycodone 20 mg every 6 hourly as needed He is allowed to have up to 80 mg of oxycodone a day and he may take it every 4 or 6 hourly as he needs it. Note since admission until 08/21/19 Continue home regimen of morphine 15 mg p.o. twice daily with oxycodone for breakthrough pain. The patient has a significant history of drug-seeking behaviors and pain management specialists in this institution recommend that he is a poor candidate for long-term utilization of narcotics secondary to nonmalignant pain and a history of noncompliance with medical treatment. Will wean from narcotics with the following regimen, recommended back in May 2019 by cardiac specialist. Decrease oxycodone to 15mg PO q8h PRN x 2 days, then 15mg PO q12h x 2 days, then stop. Cont MS [id number] PO q12h during this time, and after oxycodone is off, change MS Contin to 15 daily x 7 days, then stop. Add clonidine 0.1mg/wk patch and remeron nightly. Imodium for diarrhea as needed. Recommend the patient seek inpatient or outpatient drug and alcohol counseling to assist with his opiate dependency. We will discuss with the Dr. Adam and Dr. Valencia for continuation of narcotics as he was prescribed from [facility] For now we will continue as per the plan [facility] will not take him so Dr. Adam and/or Dr. Valencia will not be able to write the prescription of narcotics Will stress to continue with weaning protocol of narcotics with the patient We will continue to follow the weaning protocol for narcotics I will discuss with Dr. Carter for any dose that can be given before the physical therapy Discussed with Dr. Carter and his short-acting pain medication will be given before participating with physical therapy Continue with the weaning protocol Still has been receiving 1 dose of MSIR before physical therapy Was given 1 dose of morphine 4 mg intravenously for increasing back pain with radiculopathy on 08/20 Will be given 1 dose of oxycodone 15 mg before the scheduled physical therapy He will be seen by the pain therapist sometime this afternoon (2) Chronic chest pain: Initial troponin trend was negative. At least 2 EKGs with sinus tachycardia and no evidence of acute ischemia. Patient has a history of chronic chest pain. Cont Imdur per home regimen. Continue supportive care. Has been complaining of chest pain since last evening Sublingual nitro did not relieve the pain Received 1 dose of intravenous morphine 4 mg last evening EKG and troponin are unremarkable Complaint to have chest pain again this morning EKG and troponin were unremarkable No more intravenous morphine for chest pain Has had chest pain last evening without any EKG and/or troponin changes Denies any more chest pain this morning He will be seen by the pain therapist and head of service excellence sometime this afternoon Remains medically stable (3) Sepsis: Likely secondary to leg cellulitis vs UTI Improved on antibiotics and appears resuscitated from a sepsis standpoint. Remains afebrile and white count has improved We will continue current antibiotic for now Antibiotics changed to oral Augmentin as per sensitivity No signs of ongoing infection We will continue Augmentin for about 14 days in total We will give probiotics as well Augmentin has been discontinued from 08/21 (4) Catheter-associated urinary tract infection: zabala-sensitive E. faecalis. Cont Dapto and cefepime pending other blood culture results. Blood cultures have been negative We will discontinue Dapto and cefepime Will start Augmentin to cover staph and UTI We will continue antibiotic for a total of 14 days Antibiotic course is finished (5) Cellulitis of both lower extremities: Much improved today. Erythema is completely resolved surrounding the wounds which are growing S. aureus. Wound care nurse consult. Continue Dapto and cefepime pending cultures and continued clinical improvement. Blood cultures have been negative Wound culture staph aureus sensitive to oxacillin Urine culture Enterococcus faecalis sensitive to ampicillin Will start Augmentin to continue for a total of 14 days Cellulitis of the legs have resolved Discontinue Augmentin from today (6) Acute right-sided congestive heart failure: Acute on chronic diastolic CHF/acute on chronic CHF with preserved EF. Net 5L negative overnight and having hand cramping likely as a result of the aggressive diuresis efforts. Cont Mg and potassium supplementation as needed. Continue spironolactone per home regimen. Daily standing weights. Strict I/Os. Cont fluid restriction and sodium restricted diet. Appreciate cardiology input and recommendation Diuresing enough Creatinine remains stable Continue current dose of Lasix and he is responding to it without any renal impairment Denies any symptoms related to volume overload Has been getting usual dose of Lasix without any involvement of the kidney (7) DM type 2 (diabetes mellitus, type 2): Inpatient glucose controlled, however, A1C is 8.0. Patient is currently "diet-controlled" at home which is very inappropriate. Appreciate pharmacist management of diabetes No acute issue (8) Anemia: Chronic and at baseline. Continue to monitor periodically. (9) COPD (chronic obstructive pulmonary disease): Chronic, appears stable but he did have some wheezing on exam which is improved. Not in exacerbation. He is steroid dependent. Continue Spiriva, Breo and prednisone. Cont nebulizers and move to PRN dosing. (10) Morbid obesity: Advised lifestyle change starting with portion control. Patient is looking into options for bariatric surgery. (11) Depression with anxiety: Likely result of multiple comorbidities, including chronic pain with chronic narcotic use. Continue home Cymbalta. (12) History of pulmonary embolism: INR therapeutic, cont coumadin. Heparin drip stopped. Will restart Coumadin from today INR is subtherapeutic today at 1.3 Discussed with the nurse to make sure that the medicine is taken by the patient when administered We will give an increased dose of Coumadin this afternoon (13) Tobacco abuse: Advised to quit smoking. Continue NicoDerm. Contemplative phase. (14) DVT prophylaxis: coumadin Full code Disposition-pending clinical improvement. PT/OT to assess safety to go home. Of note, patient was recently at [facility] and demonstrated very poor participation in rehabilitation efforts. If rehab is a consideration at time of discharge, would recommend discussing with Dr. Adam in detail prior to moving him back to [facility] as an option. [facility] will not take the patient Trying for [place] as per correctional case records supervisor INR remains subtherapeutic at 1.2 today in spite of increasing the dose of Coumadin to 7.5 mg daily Not sure if there is any interaction with Augmentin and Coumadin Heparin standard dose without bolus has been started and should be continued until INR is therapeutic Continue PT and OT May need placement on discharge Social service is aware Subjective 08/15 The patient was seen and examined in telemetry unit He complains to have ongoing pain at the back Shortness of breath and leg edema with cellulitis have improved a lot 08/16 The patient was seen and examined in the telemetry unit His heart failure and leg swelling including UTI have been improving His pain has not been controlled and he cannot participate in any physical therapy without the pain medications He was strongly advised to follow the weaning guideline of narcotics as per Dr. Carter, the pain therapist 08/17 The patient was seen and examined in telemetry unit He has been feeling a lot better regarding his breathing and swelling of the legs He complains to have increasing pain at the back and cannot participate in physical therapy due to that 08/18 The patient was seen and examined in telemetry unit He is not having any cardiac and/or respiratory symptoms and his infection and CHF seems to be under control Complains to have more pain at the back and cannot participate in The case was discussed with Dr Carter, the pain therapist and was advised to give the short-acting narcotics before physical therapy but we will continue to wean off the medication as planned. He has been crying with pain in front of me Complaints to have some sore throat, nystatin has been prescribed 08/19 Patient was seen and examined in the telemetry unit He has been complaining of chest pain since last evening Denies any shortness of breath, any abdominal pain nausea or vomiting, and his leg swelling has been improving 08/20 The patient was seen and examined in telemetry unit He has been complaining of a lot of back pain and the pain going down to the legs and is very anxious He cannot move around and cannot come out of bed due to significant pain We are trying to wean off his narcotics as planned 08/21 The patient was seen and examined in telemetry unit He has been complaining of more back pain with radiation and right leg pain He denies any shortness of breath, cough or wheezing His leg cellulitis has improved 08/22 The patient was seen and examined He has been complaining of back pain and says that he cannot participate with physical therapy due to increasing pain with movement He denies any chest pain and/or palpitation, any shortness of breath, any abdominal pain nausea and/or vomiting Denies any fever and/or chills Review of Systems Review of Systems: All systems reviewed and are unremarkable except as noted below Cardiovascular: no chest pain Musculoskeletal: + back pain, + radicular pain and + joint pain Physical Exam Physical Exam: Lying in bed comfortably Constitutional: well developed, well nourished and + morbidly obese; no acute distress Eyes: PERRL, conjunctivae normal, anicteric sclerae ENMT: external ear and nose normal, oropharynx normal Neck: trachea midline, no thyromegaly Respiratory: normal respiratory effort; no respiratory distress Auscultation: + diminished lung sounds and + crackles (Minimal crackles at the bases) Cardiovascular: Rate/Rhythm: regular rate and regular rhythm Heart Sounds: no murmur Extremities: + edema; no calf tenderness Gastrointestinal (Abdomen): Inspection/Auscultation: abdomen normal to inspection and normal bowel sounds Percussion/Palpation: abdomen soft; abdomen nontender Musculoskeletal: Complaints 1 going back pain with radiation down the legs and right foot pain Psychiatric: Affect: + depressed affect and + anxious affect Lymphatic: no cervical or axillary lymphadenopathy Results & Data Vital Signs (Past 12 Hours) Vital Signs Temp Pulse Resp BP Pulse Ox 08/22/19 15:49 36.6 C 83 24 134/73 92 08/22/19 11:20 36.8 C 82 18 136/72 93 08/22/19 07:26 36.4 C L 74 18 163/79 H 91 Laboratory Results Short CBC 08/22/19 Range/Units 06:04 WBC 11.98 H (4.8-10.8) K/uL Hgb 10.7 L (14.0-18.0) g/dL Hct 34.8 L (42-52) % Plt Count 297 (130-400) K/uL BMP 08/22/19 06:04 Sodium 138 Potassium 3.4 L Chloride 101 Carbon Dioxide 29 BUN 26 H Creatinine 1.33 Glucose 148 H Calcium 9.7 Medications Administered Current Inpatient Medications Albuterol (Duoneb) 3 ml NEB QIDR PRN PRN Reason: SOB/wheezing Stop: 09/12/19 18:59 Aspirin (Ecotrin Ectab) 81 mg PO QAM [facility] Stop: 09/11/19 08:59 Last Admin: 08/22/19 09:00 Dose: 81 mg Documented by: Budesonide/Formoterol Fumarate (Symbicort 160mcg/4.5mcg) 2 puffs INH BID [facility] Stop: 09/15/19 20:59 Last Admin: 08/22/19 09:01 Dose: 2 puffs Documented by: Clonidine HCl (Hhyrpilb-Amn-1 0.1mg/24hr) 1 patch TD Mo@1630 [facility] Stop: 09/13/19 16:29 Last Admin: 08/21/19 15:26 Dose: Not Given Documented by: Dextrose (Dextrose 50%) 25 - 50 ml IV UD PRN; Protocol PRN Reason: Hypoglycemia Protocol Stop: 09/10/19 23:05 Docusate Sodium (Colace) 100 mg PO BID [facility] Stop: 09/11/19 08:59 Last Admin: 08/22/19 08:58 Dose: 100 mg Documented by: Duloxetine HCl (Cymbalta) 60 mg PO QAM [facility] Stop: 09/11/19 08:59 Last Admin: 08/22/19 08:58 Dose: 60 mg Documented by: Finasteride (Proscar) 5 mg PO QAM [facility] Stop: 09/11/19 08:59 Last Admin: 08/22/19 09:00 Dose: 5 mg Documented by: Fluticasone Propionate (Flonase) 2 sprays NA QAM [facility] Stop: 09/11/19 08:59 Last Admin: 08/22/19 09:01 Dose: 2 sprays Documented by: Gabapentin (Neurontin) 300 mg PO TID [facility] Stop: 09/11/19 08:59 Last Admin: 08/22/19 14:46 Dose: 300 mg Documented by: Glucagon (Glucagen) 1 mg SQ UD PRN; Protocol PRN Reason: Hypoglycemia Protocol Stop: 09/10/19 23:05 Glucose (Glucose 40%) 15 - 30 gm PO UD PRN; Protocol PRN Reason: Hypoglycemia Protocol Stop: 09/10/19 23:05 Glucose (Dex4 Glucose) 4 - 8 tabs PO UD PRN; Protocol PRN Reason: Hypoglycemia Protocol Stop: 09/10/19 23:05 Hydroxyzine HCl (Vistaril) 25 mg PO QID PRN PRN Reason: Anxiety Stop: 09/10/19 23:05 Last Admin: 08/21/19 20:45 Dose: 25 mg Documented by: Promethazine HCl 12.5 mg/ (Sodium Chloride) 50.5 mls @ 202 mls/hr IV Q6H PRN PRN Reason: Nausea And Vomiting Stop: 09/10/19 23:05 Last Infusion: 08/22/19 12:17 Dose: Infused Documented by: Furosemide 40 mg/ Syringe 4 mls @ 4 mls/min IV Q8H [facility] Stop: 09/13/19 09:59 Last Admin: 08/22/19 10:38 Dose: 4 mls/min Documented by: Heparin Sodium/Dextrose (Heparin Sodium/Dextrose) 25,000 units in 500 mls @ 46 mls/hr IV .[id number] [facility]; Protocol Stop: 09/21/19 08:14 Last Admin: 08/22/19 09:23 Dose: 2,300 units/hr, 46 mls/hr Documented by: Insulin Aspart (Novolog Flexpen) 0 units SC ACHS [facility] Stop: 09/10/19 23:29 Last Admin: 08/22/19 12:01 Dose: 6 units Documented by: Insulin Glargine (Lantus Solostar Pen) 5 units SC DAILY [facility] Stop: 09/11/19 08:59 Last Admin: 08/22/19 09:03 Dose: 5 units Documented by: Ipratropium [place] (Atrovent 0.02% 0.5mg/2.5ml) 0.5 mg INH Q4H PRN PRN Reason: SOB/WHEEZING Stop: 09/10/19 22:59 Isosorbide Mononitrate (Imdur Extended Rel) 30 mg PO DAILY [facility] Stop: 09/11/19 08:59 Last Admin: 08/22/19 09:00 Dose: 30 mg Documented by: Levalbuterol HCl (Xopenex 1.25mg/0.5ml Neb) 1.25 mg INH Q4H PRN PRN Reason: SOB/WHEEZING Stop: 09/10/19 22:59 Loperamide HCl (Imodium) 2 mg PO UD PRN PRN Reason: Diarrhea Stop: 09/13/19 16:39 Lorazepam (Ativan) 1 mg PO TID PRN PRN Reason: anxiety Stop: 09/10/19 23:18 Last Admin: 08/22/19 10:37 Dose: 1 mg Documented by: Magnesium Oxide (Mag-Ox) 400 mg PO DAILY@1700 [facility] Stop: 09/12/19 16:59 Last Admin: 08/22/19 16:11 Dose: 400 mg Documented by: Menthol (Nice) 1 lashon BUCCAL Q4H PRN PRN Reason: Sore Throat Stop: 09/14/19 13:55 Metoprolol Succinate (Toprol Xl) 50 mg PO BID [facility] Stop: 09/10/19 20:44 Last Admin: 08/22/19 09:00 Dose: 50 mg Documented by: Mirtazapine (Remeron) 15 mg PO HS [facility] Stop: 09/13/19 20:59 Last Admin: 08/21/19 20:46 Dose: 15 mg Documented by: Miscellaneous (Remove Nicoderm Patch) 1 ea N/A DAILY@0859 [facility] Stop: 09/11/19 08:58 Last Admin: 08/22/19 09:00 Dose: 1 ea Documented by: Miscellaneous (Carbohydrates For Hypoglycemia) 15 - 30 gm PO UD PRN PRN Reason: Hypoglycemia Protocol Stop: 09/10/19 23:05 Miscellaneous (Check Clonidine Patch) 1 ea N/A QS [facility] Stop: 09/14/19 00:00 Last Admin: 08/22/19 16:14 Dose: Not Given Documented by: Miscellaneous (Remove Clonidine Patch) 1 ea N/A Mo@1629 [facility] Stop: 09/20/19 16:28 Last Admin: 08/21/19 15:25 Dose: Not Given Documented by: Morphine Sulfate (Ms Contin) 15 mg PO DAILY [facility] Stop: 08/25/19 09:01 Last Admin: 08/22/19 09:20 Dose: 15 mg Documented by: Nicotine (Nicoderm Cq) 21 mg TD QAM [facility] Stop: 09/10/19 22:54 Last Admin: 08/22/19 08:58 Dose: 21 mg Documented by: Nitroglycerin (Nitrostat) 0.4 mg SL UD PRN PRN Reason: Chest Pain Stop: 09/10/19 23:05 Nystatin (Mycostatin) 10 ml PO QID [facility] Stop: 09/16/19 16:59 Last Admin: 08/22/19 16:12 Dose: 10 ml Documented by: Oxycodone HCl (Roxicodone Immediate Rel) 20 mg PO Q6H PRN PRN Reason: Pain Stop: 09/05/19 15:00 Last Admin: 08/22/19 16:09 Dose: 20 mg Documented by: Pantoprazole Sodium (Protonix) 40 mg PO QAM [facility] Stop: 09/11/19 08:59 Last Admin: 08/22/19 09:00 Dose: 40 mg Documented by: Polyethylene Glycol (Miralax Powder Packet) 17 gm PO DAILY PRN PRN Reason: Constipation Stop: 09/15/19 22:56 Last Admin: 08/22/19 10:37 Dose: 17 gm Documented by: Potassium Chloride (Klor-Con M20) 20 meq PO BID17 [facility] Stop: 09/12/19 16:59 Last Admin: 08/22/19 16:12 Dose: 20 meq Documented by: Prednisone (Prednisone) 5 mg PO DAILY [facility] Stop: 09/11/19 08:59 Last Admin: 08/22/19 09:00 Dose: 5 mg Documented by: Spironolactone (Aldactone) 25 mg PO DAILY [facility] Stop: 09/11/19 08:59 Last Admin: 08/22/19 08:59 Dose: 25 mg Documented by: Tamsulosin HCl (Flomax) 0.4 mg PO DAILY [facility] Stop: 09/11/19 08:59 Last Admin: 08/22/19 09:00 Dose: 0.4 mg Documented by: Tiotropium [place] (Spiriva) 1 puffs INH DAILY [facility] Stop: 09/11/19 08:59 Last Admin: 08/22/19 09:01 Dose: 1 puffs Documented by: Warfarin Sodium (Coumadin) 7.5 mg PO DAILY@1600 [facility] Stop: 09/19/19 15:59 Last Admin: 08/22/19 16:10 Dose: 7.5 mg Documented by: (1) Sepsis Sepsis acute organ dysfunction status: unspecified Sepsis type: sepsis due to unspecified organism Qualified Code(s): A41.9 - Sepsis, unspecified organism (2) Anemia Anemia type: unspecified type Qualified Code(s): D64.9 - Anemia, unspecified (3) COPD (chronic obstructive pulmonary disease) COPD type: emphysema Emphysema type: unspecified Qualified Code(s): J43.9 - Emphysema, unspecified
[2019-08-22] MEDS: MIRTAZAPINE TAB 15 MG TAB PO SCH (20:32)
[2019-08-23] MEDS: CHECK CLONIDINE PATCH PLACEMENT SCH ×3 (00:30→16:44)
[2019-08-23] MEDS: FUROSEMIDE 40 MG in SYRINGE 0 ML IV SCH ×3 (02:29→17:43)
[2019-08-23] MEDS: LORazepam 1 MG TAB PO PRN ×2 (02:29→19:33)
[2019-08-23] MEDS: OXYCODONE HCL IR 5 MG TAB (IMMEDIATE RELEASE) PO PRN ×4 (05:58→21:55)
[2019-08-23 06:01] LABS: Hemoglobin 11.1 g/dL (14.0-18.0); Mean Corpuscular Hemoglobin 22.8 pg (25-34); Mean Platelet Volume 9.8 fL (7.4-10.4); Platelet Count 357 K/uL (130-400); RDW Coefficient of Variation 18.6 % (11.5-14.5); RDW Standard Deviation 51.7 fL (36.4-46.3); Red Blood Count 4.87 M/uL (4.7-6.1)
[2019-08-23 06:21] LABS: Partial Thromboplastin Ratio 2.8
[2019-08-23 06:22] LABS: Partial Thromboplastin Time 74.8 Seconds (21.0-31.0)
[2019-08-23] MEDS: HEPARIN SODIUM/DEXTROSE 25,000 UNITS/500 ML BAG IV SCH ×2 (07:18→23:20)
[2019-08-23] MEDS: DULOXETINE HCL 60 MG CAP PO SCH (08:26)
[2019-08-23] MEDS: POTASSIUM CHLORIDE 20 MEQ TABCR PO SCH ×2 (08:26→16:47)
[2019-08-23] MEDS: PANTOprazole 40 MG TAB PO SCH (08:26)
[2019-08-23] MEDS: DOCUSATE SODIUM 100 MG CAP PO SCH ×2 (08:26→20:33)
[2019-08-23] MEDS: predniSONE 5 MG TAB PO SCH (08:26)
[2019-08-23] MEDS: TAMSULOSIN HCL 0.4 MG CAP PO SCH (08:27)
[2019-08-23] MEDS: SPIRONOLACTONE 25 MG TAB PO SCH (08:27)
[2019-08-23] MEDS: ASPIRIN 81 MG ECTAB PO SCH (08:27)
[2019-08-23] MEDS: GABAPENTIN 300 MG CAP PO SCH ×3 (08:27→20:33)
[2019-08-23] MEDS: FINASTERIDE 5 MG TAB PO SCH (08:27)
[2019-08-23] MEDS: NYSTATIN SUSP 500,000 U/5 ML UDC PO SCH ×4 (08:28→20:37)
[2019-08-23] MEDS: FLUTICASONE PROPIONATE NA SPR 16 GM BTL SCH (08:28)
[2019-08-23] MEDS: NICOTINE 21 MG/24 HR TDSY TD SCH (08:29)
[2019-08-23] MEDS: BUDESONIDE/FORMOTEROL FUMARATE 160/4.5 60 PUFFS/INHALER INH SCH ×2 (08:29→20:34)
[2019-08-23] MEDS: ISOSORBIDE MONO EXTENDED REL 30 MG TABCR PO SCH (08:35)
[2019-08-23] MEDS: INSULIN GLARGINE SOLOSTAR 100 UNITS/ML 3 ML PEN SC SCH (08:38)
--- NOTE | 2019-08-23 08:47 | Hospitalist Progress Note ---
Date of Service August 23, 2019 Assessment & Plan (1) Opioid dependence: Multidisciplinary team involving pain therapist, [facility] service excellence, liaison nurse and Dr. Vasquez (hospitalist) He has documented chronic back pain with radiculopathy and chronic foot pain We had a long discussion with the patient regarding his chronic pain and its management It was decided that he will need some narcotic pain medications to control pain as per the pain therapist He was warned against possible side effect of narcotics pain medications and its potential for addiction Decision was made to give him narcotic pain medications and was instructed to avoid biopsy rules by him Plan #1: He might need to be reevaluated by pain therapist for decreasing or increasing pain medications : He will be assigned to a possible [facility] PCP as an outpatient who will provide the narcotics as planned by the pain therapist : He will be discharged with an appointment with pain clinic in [place] with a referral discharge summary on discharge from the hospital : He will need to have periodic follow-up with the pain clinic in [place] if he is accepted. Plan #2: In case he is not been accepted to the pain clinic at [place] then he will be seen by Dr. Carter and his group for recommendation of narcotics : In this case he will need to have a [facility] PCP who will continue to prescribe if the narcotics for him and do the monitoring as an outpatient. This was clearly stated to the patient's and after discussion with Dr. Carter he was started with Oxycodone 20 mg every 6 hourly as needed He is allowed to have up to 80 mg of oxycodone a day and he may take it every 4 or 6 hourly as he needs it. 08/22 Patient continues to complain of some low back pain, which is chronic, will start lidocaine patch Note since admission until 08/21/19 (prior to multidisciplinary meeting) Continue home regimen of morphine 15 mg p.o. twice daily with oxycodone for breakthrough pain. The patient has a significant history of drug-seeking behaviors and pain management specialists in this institution recommend that he is a poor candidate for long-term utilization of narcotics secondary to nonmalignant pain and a history of noncompliance with medical treatment. Will wean from narcotics with the following regimen, recommended back in May 2019 by docket specialist. Decrease oxycodone to 15mg PO q8h PRN x 2 days, then 15mg PO q12h x 2 days, then stop. Cont MS [id number] PO q12h during this time, and after oxycodone is off, change MS Contin to 15 daily x 7 days, then stop. Add clonidine 0.1mg/wk patch and remeron nightly. Imodium for diarrhea as needed. Recommend the patient seek inpatient or outpatient drug and alcohol counseling to assist with his opiate dependency. We will discuss with the Dr. Adam and Dr. Valencia for continuation of narcotics as he was prescribed from [facility] For now we will continue as per the plan [facility] will not take him so Dr. Adam and/or Dr. Valencia will not be able to write the prescription of narcotics Will stress to continue with weaning protocol of narcotics with the patient We will continue to follow the weaning protocol for narcotics I will discuss with Dr. Carter for any dose that can be given before the physical therapy Discussed with Dr. Carter and his short-acting pain medication will be given before participating with physical therapy Continue with the weaning protocol Still has been receiving 1 dose of MSIR before physical therapy Was given 1 dose of morphine 4 mg intravenously for increasing back pain with ra diculopathy on 08/20 Will be given 1 dose of oxycodone 15 mg before the scheduled physical therapy He will be seen by the pain therapist sometime this afternoon (2) Chronic chest pain: Initial troponin trend was negative. At least 2 EKGs with sinus tachycardia and no evidence of acute ischemia. Patient has a history of chronic chest pain. Cont Imdur per home regimen. Continue supportive care. Has been complaining of chest pain during the hospitalization Sublingual nitro did not relieve the pain Received 1 dose of intravenous morphine 4 mg EKG and troponin are unremarkable Complaint to have chest pain again EKG and troponin were unremarkable No more intravenous morphine for chest pain Has had chest pain again without any EKG and/or troponin changes Denies any more chest pain Seen by the pain therapist and head of service excellence Remains medically stable (3) Sepsis: Likely secondary to leg cellulitis vs UTI Improved on antibiotics and appears resuscitated from a sepsis standpoint. Remains afebrile and white count has improved We will continue current antibiotic for now Antibiotics changed to oral Augmentin as per sensitivity No signs of ongoing infection We will continue Augmentin for about 14 days in total We will give probiotics as well Augmentin has been discontinued from 08/21 (4) Catheter-associated urinary tract infection: zabala-sensitive E. faecalis. Cont Dapto and cefepime pending other blood culture results. Blood cultures have been negative We will discontinue Dapto and cefepime Will start Augmentin to cover staph and UTI We will continue antibiotic for a total of 14 days Antibiotic course is finished (5) Cellulitis of both lower extremities: Much improved today. Erythema is completely resolved surrounding the wounds which are growing S. aureus. Wound care nurse consult. Continue Dapto and cefepime pending cultures and continued clinical improvement. Blood cultures have been negative Wound culture staph aureus sensitive to oxacillin Urine culture Enterococcus faecalis sensitive to ampicillin Will start Augmentin to continue for a total of 14 days Cellulitis of the legs have resolved Discontinue Augmentin 08/21 (6) Acute right-sided congestive heart failure: Acute on chronic diastolic CHF/acute on chronic CHF with preserved EF. Net 5L negative overnight and having hand cramping likely as a result of the aggressive diuresis efforts. Cont Mg and potassium supplementation as needed. Continue spironolactone per home regimen. Daily standing weights. Strict I/Os. Cont fluid restriction and sodium restricted diet. Appreciate cardiology input and recommendation Diuresing enough Creatinine remains stable Continue current dose of Lasix and he is responding to it without any renal impairment Denies any symptoms related to volume overload Has been getting usual dose of Lasix without any involvement of the kidney (7) DM type 2 (diabetes mellitus, type 2): Inpatient glucose controlled, however, A1C is 8.0. Patient is currently "diet-controlled" at home which is very inappropriate. Appreciate pharmacist management of diabetes Patient started on insulin No acute issue (8) Anemia: Chronic and at baseline. Continue to monitor periodically. (9) COPD (chronic obstructive pulmonary disease): Chronic, appears stable but he did have some wheezing previously on exam which is improved. Not in exacerbation. He is steroid dependent. Continue Spiriva, Breo and prednisone. Cont nebulizers and move to PRN dosing. (10) Morbid obesity: Advised lifestyle change starting with portion control. Patient is looking into options for bariatric surgery. (11) Depression with anxiety: Likely result of multiple comorbidities, including chronic pain with chronic narcotic use. Continue home Cymbalta. (12) History of pulmonary embolism: INR therapeutic, cont coumadin. Heparin drip stopped. Restarted Coumadin INR is subtherapeutic at 1.3 Discussed with the nurse to make sure that the medicine is taken by the patient when administered We will give an increased dose of Coumadin this afternoon Pt on IV heparin (13) Tobacco abuse: Advised to quit smoking. Continue NicoDerm. Contemplative phase. Also discussed 1 800 quit now smoking cessation line in detail, as he says that he is doing well with nicotine patches right now, however he is concerned about the león (14) DVT prophylaxis: coumadin, IV heparin Full code Disposition-pending clinical improvement. PT/OT to assess safety to go home. Of note, patient was recently at [facility] and demonstrated very poor participation in rehabilitation efforts. If rehab is a consideration at time of discharge, would recommend discussing with Dr. Adam in detail prior to moving him back to [facility] as an option. [facility] will not take the patient Trying for [facility] as per lining caser INR remains subtherapeutic at 1.2 today in spite of increasing the dose of Coumadin to 7.5 mg daily Not sure if there is any interaction with Augmentin and Coumadin Heparin standard dose without bolus has been started and should be continued until INR is therapeutic Continue PT and OT May need placement on discharge Social service is aware Subjective Patient is a morbidly obese male, sitting comfortably in a chair, eating. In no acute distress. Denies any fevers, chills, chest pain, shortness of breath, abdominal pain. He is breathing comfortably on room air. He says that he has nausea however he is eating, completely finishing his plate. Review of Systems Review of Systems: All systems reviewed and are unremarkable except as noted below Constitutional: + body aches and + weakness; no fever and no chills Respiratory: + cough (occasional); no dyspnea Cardiovascular: no chest pain and no palpitations Gastrointestinal: + nausea; no abdominal pain and no vomiting Musculoskeletal: + back pain, + radicular pain and + joint pain Physical Exam Physical Exam: Physical Exam: Morbidly obese male sitting in a chair, in no acute distress, eating Constitutional: well developed, well nourished and + morbidly obese; no acu te distress Eyes: PERRL, EOMI,conjunctivae normal, anicteric sclerae ENMT: external ear and nose normal, oropharynx normal Neck: trachea midline, no thyromegaly Respiratory: normal respiratory effort; no respiratory distress Auscultation: + diminished lung sounds and + crackles (Minimal crackles at the bases) Cardiovascular: Rate/Rhythm: regular rate and regular rhythm Heart Sounds: no murmur Extremities: + edema; no calf tenderness Gastrointestinal (Abdomen): Inspection/Auscultation: abdomen normal to inspection and normal bowel sounds Percussion/Palpation: abdomen soft; abdomen nontender Musculoskeletal: Complaints 1 going back pain with radiation down the legs and right foot pain Psychiatric: Affect: + depressed affect and + anxious affect Lymphatic: no cervical or axillary lymphadenopathy Results & Data Vital Signs (Past 12 Hours) Vital Signs Temp Pulse Pulse Resp BP Pulse Ox 08/23/19 07:47 36.7 C 86 18 153/60 H 94 08/23/19 03:00 36.8 C 80 20 165/80 H 93 08/23/19 00:00 88 08/22/19 23:35 36.6 C 88 20 141/77 H 92 Laboratory Results 08/23/19 08/23/19 08/23/19 Range/Units 07:21 05:41 05:41 WBC 15.90 H (4.8-10.8) K/uL RBC 4.87 (4.7-6.1) M/uL Hgb 11.1 L (14.0-18.0) g/dL Hct 37.0 L (42-52) % MCV 76.0 L (80-100) fL MCH 22.8 L (25-34) pg MCHC 30.0 L (32-36) g/dL RDW Std Deviation 51.7 H (36.4-46.3) fL RDW Coeff of Megan 18.6 H (11.5-14.5) % Plt Count 357 (130-400) K/uL MPV 9.8 (7.4-10.4) fL APTT 74.8 H* (21.0-31.0) Seconds PTT Ratio 2.8 POC Glucose 253 H (70-99) 08/22/19 08/22/19 08/22/19 Range/Units 20:20 16:50 16:31 WBC (4.8-10.8) K/uL RBC (4.7-6.1) M/uL Hgb (14.0-18.0) g/dL Hct (42-52) % MCV (80-100) fL MCH (25-34) pg MCHC (32-36) g/dL RDW Std Deviation (36.4-46.3) fL RDW Coeff of Megan (11.5-14.5) % Plt Count (130-400) K/uL MPV (7.4-10.4) fL APTT 59.0 H* (21.0-31.0) Seconds PTT Ratio 2.2 POC Glucose 175 H 191 H (70-99) 08/22/19 08/22/19 08/22/19 Range/Units 11:28 11:25 11:19 WBC (4.8-10.8) K/uL RBC (4.7-6.1) M/uL Hgb (14.0-18.0) g/dL Hct (42-52) % MCV (80-100) fL MCH (25-34) pg MCHC (32-36) g/dL RDW Std Deviation (36.4-46.3) fL RDW Coeff of Megan (11.5-14.5) % Plt Count (130-400) K/uL MPV (7.4-10.4) fL APTT (21.0-31.0) Seconds PTT Ratio POC Glucose 187 H 241 H 340 H* (70-99) Medications Administered Current Inpatient Medications Albuterol (Duoneb) 3 ml NEB QIDR PRN PRN Reason: SOB/wheezing Stop: 09/12/19 18:59 Aspirin (Ecotrin Ectab) 81 mg PO QAM [facility] Stop: 09/11/19 08:59 Last Admin: 08/23/19 08:27 Dose: 81 mg Documented by: Budesonide/Formoterol Fumarate (Symbicort 160mcg/4.5mcg) 2 puffs INH BID [facility] Stop: 09/15/19 20:59 Last Admin: 08/23/19 08:29 Dose: 2 puffs Documented by: Clonidine HCl (Eijyihvn-Voa-9 0.1mg/24hr) 1 patch TD Mo@1630 [facility] Stop: 09/13/19 16:29 Last Admin: 08/21/19 15:26 Dose: Not Given Documented by: Dextrose (Dextrose 50%) 25 - 50 ml IV UD PRN; Protocol PRN Reason: Hypoglycemia Protocol Stop: 09/10/19 23:05 Docusate Sodium (Colace) 100 mg PO BID [facility] Stop: 09/11/19 08:59 Last Admin: 08/23/19 08:26 Dose: 100 mg Documented by: Duloxetine HCl (Cymbalta) 60 mg PO QAM [facility] Stop: 09/11/19 08:59 Last Admin: 08/23/19 08:26 Dose: 60 mg Documented by: Finasteride (Proscar) 5 mg PO QAM [facility] Stop: 09/11/19 08:59 Last Admin: 08/23/19 08:27 Dose: 5 mg Documented by: Fluticasone Propionate (Flonase) 2 sprays NA [facility] Stop: 09/11/19 08:59 Last Admin: 08/23/19 08:28 Dose: 2 sprays Documented by: Gabapentin (Neurontin) 300 mg PO TID [facility] Stop: 09/11/19 08:59 Last Admin: 08/23/19 08:27 Dose: 300 mg Documented by: Glucagon (Glucagen) 1 mg SQ UD PRN; Protocol PRN Reason: Hypoglycemia Protocol Stop: 09/10/19 23:05 Glucose (Glucose 40%) 15 - 30 gm PO UD PRN; Protocol PRN Reason: Hypoglycemia Protocol Stop: 09/10/19 23:05 Glucose (Dex4 Glucose) 4 - 8 tabs PO UD PRN; Protocol PRN Reason: Hypoglycemia Protocol Stop: 09/10/19 23:05 Hydroxyzine HCl (Vistaril) 25 mg PO QID PRN PRN Reason: Anxiety Stop: 09/10/19 23:05 Last Admin: 08/22/19 21:18 Dose: 25 mg Documented by: Promethazine HCl 12.5 mg/ (Sodium Chloride) 50.5 mls @ 202 mls/hr IV Q6H PRN PRN Reason: Nausea And Vomiting Stop: 09/10/19 23:05 Last Infusion: 08/22/19 18:55 Dose: Infused Documented by: Furosemide 40 mg/ Syringe 4 mls @ 4 mls/min IV Q8H [facility] Stop: 09/13/19 09:59 Last Admin: 08/23/19 02:29 Dose: 4 mls/min Documented by: Heparin Sodium/Dextrose (Heparin Sodium/Dextrose) 25,000 units in 500 mls @ 41 mls/hr IV .[id number] [facility]; Protocol Stop: 09/21/19 08:14 Last Admin: 08/23/19 07:18 Dose: 2,050 units/hr, 41 mls/hr Documented by: Insulin Aspart (Novolog Flexpen) 0 units SC ACHS [facility] Stop: 09/10/19 23:29 Last Admin: 08/22/19 20:35 Dose: 3 units Documented by: Insulin Glargine (Lantus Solostar Pen) 5 units SC DAILY [facility] Stop: 09/11/19 08:59 Last Admin: 08/23/19 08:38 Dose: 300 units Documented by: Ipratropium [place] (Atrovent 0.02% 0.5mg/2.5ml) 0.5 mg INH Q4H PRN PRN Reason: SOB/WHEEZING Stop: 09/10/19 22:59 Isosorbide Mononitrate (Imdur Extended Rel) 30 mg PO DAILY [facility] Stop: 09/11/19 08:59 Last Admin: 08/23/19 08:35 Dose: 30 mg Documented by: Levalbuterol HCl (Xopenex 1.25mg/0.5ml Neb) 1.25 mg INH Q4H PRN PRN Reason: SOB/WHEEZING Stop: 09/10/19 22:59 Loperamide HCl (Imodium) 2 mg PO UD PRN PRN Reason: Diarrhea Stop: 09/13/19 16:39 Lorazepam (Ativan) 1 mg PO TID PRN PRN Reason: anxiety Stop: 09/10/19 23:18 Last Admin: 08/23/19 02:29 Dose: 1 mg Documented by: Magnesium Oxide (Mag-Ox) 400 mg PO DAILY@1700 [facility] Stop: 09/12/19 16:59 Last Admin: 08/22/19 16:11 Dose: 400 mg Documented by: Menthol (Nice) 1 lashon BUCCAL Q4H PRN PRN Reason: Sore Throat Stop: 09/14/19 13:55 Metoprolol Succinate (Toprol Xl) 50 mg PO BID [facility] Stop: 09/10/19 20:44 Last Admin: 08/22/19 20:31 Dose: 50 mg Documented by: Mirtazapine (Remeron) 15 mg PO HS [facility] Stop: 09/13/19 20:59 Last Admin: 08/22/19 20:32 Dose: Not Given Documented by: Miscellaneous (Remove Nicoderm Patch) 1 ea N/A DAILY@0859 [facility] Stop: 09/11/19 08:58 Last Admin: 08/23/19 08:25 Dose: 1 ea Documented by: Miscellaneous (Carbohydrates For Hypoglycemia) 15 - 30 gm PO UD PRN PRN Reason: Hypoglycemia Protocol Stop: 09/10/19 23:05 Miscellaneous (Check Clonidine Patch) 1 ea N/A QS [facility] Stop: 09/14/19 00:00 Last Admin: 08/23/19 08:25 Dose: Not Given Documented by: Miscellaneous (Remove Clonidine Patch) 1 ea N/A Mo@1629 [facility] Stop: 09/20/19 16:28 Last Admin: 08/21/19 15:25 Dose: Not Given Documented by: Morphine Sulfate (Ms Contin) 15 mg PO DAILY [facility] Stop: 08/25/19 09:01 Last Admin: 08/22/19 09:20 Dose: 15 mg Documented by: Nicotine (Nicoderm Cq) 21 mg TD QAM [facility] Stop: 09/10/19 22:54 Last Admin: 08/23/19 08:29 Dose: 21 mg Documented by: Nitroglycerin (Nitrostat) 0.4 mg SL UD PRN PRN Reason: Chest Pain Stop: 09/10/19 23:05 Nystatin (Mycostatin) 10 ml PO QID [facility] Stop: 09/16/19 16:59 Last Admin: 08/23/19 08:28 Dose: 10 ml Documented by: Oxycodone HCl (Roxicodone Immediate Rel) 20 mg PO Q6H PRN PRN Reason: Pain Stop: 09/05/19 15:00 Last Admin: 08/23/19 05:58 Dose: 20 mg Documented by: Pantoprazole Sodium (Protonix) 40 mg PO QAM [facility] Stop: 09/11/19 08:59 Last Admin: 08/23/19 08:26 Dose: 40 mg Documented by: Polyethylene Glycol (Miralax Powder Packet) 17 gm PO DAILY PRN PRN Reason: Constipation Stop: 09/15/19 22:56 Last Admin: 08/22/19 10:37 Dose: 17 gm Documented by: Potassium Chloride (Klor-Con M20) 20 meq PO BID17 [facility] Stop: 09/12/19 16:59 Last Admin: 08/23/19 08:26 Dose: 20 meq Documented by: Prednisone (Prednisone) 5 mg PO DAILY [facility] Stop: 09/11/19 08:59 Last Admin: 08/23/19 08:26 Dose: 5 mg Documented by: Spironolactone (Aldactone) 25 mg PO DAILY [facility] Stop: 09/11/19 08:59 Last Admin: 08/23/19 08:27 Dose: 25 mg Documented by: Tamsulosin HCl (Flomax) 0.4 mg PO DAILY [facility] Stop: 09/11/19 08:59 Last Admin: 08/23/19 08:27 Dose: 0.4 mg Documented by: Tiotropium [place] (Spiriva) 1 puffs INH DAILY [facility] Stop: 09/11/19 08:59 Last Admin: 08/22/19 09:01 Dose: 1 puffs Documented by: Warfarin Sodium (Coumadin) 7.5 mg PO DAILY@1600 [facility] Stop: 09/19/19 15:59 Last Admin: 08/22/19 16:10 Dose: 7.5 mg Documented by: (1) Sepsis Sepsis acute organ dysfunction status: unspecified Sepsis type: sepsis due to unspecified organism Qualified Code(s): A41.9 - Sepsis, unspecified organism (2) Anemia Anemia type: unspecified type Qualified Code(s): D64.9 - Anemia, unspecified (3) COPD (chronic obstructive pulmonary disease) COPD type: emphysema Emphysema type: unspecified Qualified Code(s): J43.9 - Emphysema, unspecified
[2019-08-23] MEDS: POLYETHYLENE (MIRALAX) 17 GM PACK PO PRN ×2 (09:38→20:34)
[2019-08-23] MEDS: INSULIN ASPART 100 UNITS/ML 3 ML PEN SC SCH ×4 (09:39→20:35)
[2019-08-23] MEDS: MoRPHine SULFATE CR 15 MG TABCR PO SCH (09:40)
[2019-08-23] MEDS: METOPROLOL SUCC 50MG EXT REL TAB PO SCH ×2 (09:40→20:35)
[2019-08-23] MEDS ORDERED: PROMETHAZINE HCL 25 MG TAB PO PRN (11:14)
[2019-08-23] MEDS: TIOTROPIUM BROMIDE 5 PUFF/90 MCG INH INH SCH (11:50)
[2019-08-23 12:48] LABS: Partial Thromboplastin Ratio 1.1; Partial Thromboplastin Time 29.6 Seconds (21.0-31.0)
[2019-08-23] MEDS ORDERED: HEPARIN IV BOLUS 10,000 UNITS in SYRINGE 0 ML IV STA (14:40)
[2019-08-23] MEDS: WARFARIN SOD 7.5 MG TAB PO SCH (16:46)
[2019-08-23] MEDS: MAGNESIUM OXIDE 400 MG TAB PO SCH (16:46)
[2019-08-23] MEDS: LIDOCAINE 5% 1 PATCH TD SCH (20:34)
[2019-08-23] MEDS: MIRTAZAPINE TAB 15 MG TAB PO SCH (20:34)
[2019-08-23 22:04] LABS: Partial Thromboplastin Ratio 4.7
[2019-08-24] MEDS: CHECK CLONIDINE PATCH PLACEMENT SCH ×4 (01:04→23:34)
[2019-08-24] MEDS: FUROSEMIDE 40 MG in SYRINGE 0 ML IV SCH ×3 (01:49→16:59)
[2019-08-24] MEDS: LORazepam 1 MG TAB PO PRN ×3 (01:58→20:41)
[2019-08-24] MEDS: OXYCODONE HCL IR 5 MG TAB (IMMEDIATE RELEASE) PO PRN ×4 (06:16→22:10)
[2019-08-24] MEDS ORDERED: BENZONATATE 100 MG CAPSULE PO PRN (06:30)
[2019-08-24] MEDS ORDERED: COUGH DROP (SUGAR FREE) LOZ 24 LOZ/1 BOX BUCCAL PRN (06:32)
[2019-08-24 07:24] LABS: BUN Creatinine Ratio 15.5 (10-20); Calcium 9.9 mg/dl (8.5-10.1); Creatinine Clr Calc Pharmacy 136.1 ml/min; Est GFR (African American) 82.6; Est GFR (Non-African American) 71.3; Potassium 3.3 mmol/L (3.5-5.1)
[2019-08-24 07:43] LABS: INR 1.8 (0.9-1.1); Partial Thromboplastin Ratio 3.1; Prothrombin Time 17.9 Seconds (9.0-12.0)
[2019-08-24 07:52] LABS: Partial Thromboplastin Time 83.2 Seconds (21.0-31.0)
[2019-08-24] MEDS: INSULIN ASPART 100 UNITS/ML 3 ML PEN SC SCH ×4 (08:02→21:01)
[2019-08-24] MEDS: INSULIN GLARGINE SOLOSTAR 100 UNITS/ML 3 ML PEN SC SCH (08:03)
[2019-08-24] MEDS: MoRPHine SULFATE CR 15 MG TABCR PO SCH (08:07)
[2019-08-24] MEDS: NYSTATIN SUSP 500,000 U/5 ML UDC PO SCH ×4 (08:08→20:44)
[2019-08-24] MEDS: POTASSIUM CHLORIDE 20 MEQ TABCR PO SCH ×2 (08:09→15:44)
[2019-08-24] MEDS: TAMSULOSIN HCL 0.4 MG CAP PO SCH (08:09)
[2019-08-24] MEDS: SPIRONOLACTONE 25 MG TAB PO SCH (08:09)
[2019-08-24] MEDS: TIOTROPIUM BROMIDE 5 PUFF/90 MCG INH INH SCH (08:10)
[2019-08-24] MEDS: PANTOprazole 40 MG TAB PO SCH (08:11)
[2019-08-24] MEDS: predniSONE 5 MG TAB PO SCH (08:11)
[2019-08-24] MEDS: METOPROLOL SUCC 50MG EXT REL TAB PO SCH ×2 (08:11→20:42)
[2019-08-24] MEDS: NICOTINE 21 MG/24 HR TDSY TD SCH (08:12)
[2019-08-24] MEDS: GABAPENTIN 300 MG CAP PO SCH ×3 (08:12→20:43)
[2019-08-24] MEDS: FLUTICASONE PROPIONATE NA SPR 16 GM BTL SCH (08:13)
[2019-08-24] MEDS: ISOSORBIDE MONO EXTENDED REL 30 MG TABCR PO SCH (08:13)
[2019-08-24] MEDS: DOCUSATE SODIUM 100 MG CAP PO SCH ×2 (08:14→20:42)
[2019-08-24] MEDS: ASPIRIN 81 MG ECTAB PO SCH (08:14)
[2019-08-24] MEDS: DULOXETINE HCL 60 MG CAP PO SCH (08:14)
[2019-08-24] MEDS: FINASTERIDE 5 MG TAB PO SCH (08:15)
[2019-08-24] MEDS: BUDESONIDE/FORMOTEROL FUMARATE 160/4.5 60 PUFFS/INHALER INH SCH ×2 (08:15→20:42)
[2019-08-24] MEDS: POLYETHYLENE (MIRALAX) 17 GM PACK PO PRN (08:25)
[2019-08-24] MEDS ORDERED: POTASSIUM CHLORIDE 20 MEQ TABCR PO STA (09:30)
--- NOTE | 2019-08-24 09:34 | Hospitalist Progress Note ---
Date of Service August 24, 2019 Assessment & Plan (1) Opioid dependence: Multidisciplinary team involving pain therapist, [facility] service excellence, liaison nurse and Dr. Vasquez (hospitalist) He has documented chronic back pain with radiculopathy and chronic foot pain We had a long discussion with the patient regarding his chronic pain and its management It was decided that he will need some narcotic pain medications to control pain as per the pain therapist He was warned against possible side effect of narcotics pain medications and its potential for addiction Decision was made to give him narcotic pain medications and was instructed to avoid biopsy rules by him Plan #1: He might need to be reevaluated by pain therapist for decreasing or increasing pain medications : He will be assigned to a possible [facility] PCP as an outpatient who will provide the narcotics as planned by the pain therapist : He will be discharged with an appointment with pain clinic in [place] with a referral discharge summary on discharge from the hospital : He will need to have periodic follow-up with the pain clinic in [place] if he is accepted. Plan #2: In case he is not been accepted to the pain clinic at [place] then he will be seen by Dr. Carter and his group for recommendation of narcotics : In this case he will need to have a [facility] PCP who will continue to prescribe if the narcotics for him and do the monitoring as an outpatient. This was clearly stated to the patient's and after discussion with Dr. Carter he was started with Oxycodone 20 mg every 6 hourly as needed He is allowed to have up to 80 mg of oxycodone a day and he may take it every 4 or 6 hourly as he needs it. 08/22 Patient continues to complain of some low back pain, which is chronic, started lidocaine patch Note since admission until 08/21/19 (prior to multidisciplinary meeting) Continue home regimen of morphine 15 mg p.o. twice daily with oxycodone for breakthrough pain. The patient has a significant history of drug-seeking behaviors and pain management specialists in this institution recommend that he is a poor candidate for long-term utilization of narcotics secondary to nonmalignant pain and a history of noncompliance with medical treatment. Will wean from narcotics with the following regimen, recommended back in May 2019 by radiologic electronic specialist. Decrease oxycodone to 15mg PO q8h PRN x 2 days, then 15mg PO q12h x 2 days, then stop. Cont MS [id number] PO q12h during this time, and after oxycodone is off, change MS Contin to 15 daily x 7 days, then stop. Add clonidine 0.1mg/wk patch and remeron nightly. Imodium for diarrhea as needed. Recommend the patient seek inpatient or outpatient drug and alcohol counseling to assist with his opiate dependency. We will discuss with the Dr. Adam and Dr. Valencia for continuation of narcotics as he was prescribed from [facility] For now we will continue as per the plan [facility] will not take him so Dr. Adam and/or Dr. Valencia will not be able to write the prescription of narcotics Will stress to continue with weaning protocol of narcotics with the patient We will continue to follow the weaning protocol for narcotics I will discuss with Dr. Carter for any dose that can be given before the physical therapy Discussed with Dr. Carter and his short-acting pain medication will be given before participating with physical therapy Continue with the weaning protocol Still has been receiving 1 dose of MSIR before physical therapy Was given 1 dose of morphine 4 mg intravenously for increasing back pain with radiculopathy on 08/20 Will be given 1 dose of oxycodone 15 mg before the scheduled physical therapy He will be seen by the pain therapist sometime this afternoon (2) Chronic chest pain: Initial troponin trend was negative. At least 2 EKGs with sinus tachycardia and no evidence of acute ischemia. Patient has a history of chronic chest pain. Cont Imdur per home regimen. Continue supportive care. Has been complaining of chest pain during the hospitalization Sublingual nitro did not relieve the pain Received 1 dose of intravenous morphine 4 mg EKG and troponin are unremarkable Complaint to have chest pain again EKG and troponin were unremarkable No more intravenous morphine for chest pain Has had chest pain again without any EKG and/or troponin changes Denies any more chest pain Seen by the pain therapist and head of service excellence Remains medically stable 08/24 Continues to have chest discomfort on inspiration, says this happens to him when he gets viral infection etc., will order chest x-ray to further evaluate (3) Sepsis: Likely secondary to leg cellulitis vs UTI Improved on antibiotics and a ppears resuscitated from a sepsis standpoint. Remains afebrile and white count has improved We will continue current antibiotic for now Antibiotics changed to oral Augmentin as per sensitivity No signs of ongoing infection We will continue Augmentin for about 14 days in total We will give probiotics as well Augmentin has been discontinued from 08/21 (4) Catheter-associated urinary tract infection: zabala-sensitive E. faecalis. Cont Dapto and cefepime pending other blood culture results. Blood cultures have been negative We will discontinue Dapto and cefepime Will start Augmentin to cover staph and UTI We will continue antibiotic for a total of 14 days Antibiotic course is finished (5) Cellulitis of both lower extremities: Much improved today. Erythema is completely resolved surrounding the wounds which are growing S. aureus. Wound care nurse consult. Continue Dapto and cefepime pending cultures and continued clinical improvement. Blood cultures have been negative Wound culture staph aureus sensitive to oxacillin Urine culture Enterococcus faecalis sensitive to ampicillin Augmentin to continue for a total of 14 days Cellulitis of the legs have resolved Discontinue Augmentin 08/21 (6) Acute right-sided congestive heart failure: Acute on chronic diastolic CHF/acute on chronic CHF with preserved EF. Net 5L negative overnight and having hand cramping likely as a result of the aggressive diuresis efforts. Cont Mg and potassium supplementation as needed. Continue spironolactone per home regimen. Daily standing weights. Strict I/Os. Cont fluid restriction and sodium restricted diet. Appreciate cardiology input and recommendation Diuresing enough Creatinine remains stable Continue current dose of Lasix and he is responding to it without any renal impairment Denies any symptoms related to volume overload Has been getting usual dose of Lasix without any involvement of the kidney (7) DM type 2 (diabetes mellitus, type 2): Inpatient glucose controlled, however, A1C is 8.0. Patient is currently "diet-controlled" at home which is very inappropriate. Appreciate pharmacist management of diabetes Patient started on insulin No acute issue (8) Anemia: Chronic and at baseline. Continue to monitor periodically. (9) COPD (chronic obstructive pulmonary disease): Chronic, appears stable but he did have some wheezing previously on exam which is improved. Not in exacerbation. He is steroid dependent. Continue Spiriva, Breo and prednisone. Guaifenesin Mild wheezing on exam today, will give prednisone 20mg and will reevaluate tomorrow Cont nebulizers and move to PRN dosing. (10) Morbid obesity: Advised lifestyle change starting with portion control. Patient is looking into options for bariatric surgery. (11) Depression with anxiety: Likely result of multiple comorbidities, including chronic pain with chronic narcotic use. Continue home Cymbalta. (12) History of pulmonary embolism: INR therapeutic, cont coumadin. Heparin drip stopped. Restarted Coumadin INR is subtherapeutic at 1.3 Discussed with the nurse to make sure that the medicine is taken by the patient when administered We will give an increased dose of Coumadin this afternoon Pt on IV heparin (13) Tobacco abuse: Advised to quit smoking. Continue NicoDerm. Contemplative phase. Also discussed 1 800 quit now smoking cessation line in detail, as he says that he is doing well with nicotine patches right now, however he is concerned about the león (14) DVT prophylaxis: coumadin, IV heparin Full code Disposition-pending clinical improvement. PT/OT to assess safety to go home. Of note, patient was recently at [facility] and demonstrated very poor p articipation in rehabilitation efforts. If rehab is a consideration at time of discharge, would recommend discussing with Dr. Adam in detail prior to moving him back to [facility] as an option. [facility] will not take the patient Trying for [facility] as per family preservation caseworker INR improved today, increased dose of Coumadin to 7.5 mg daily Not sure if there is any interaction with Augmentin and Coumadin Heparin standard dose without bolus has been started and should be continued until INR is therapeutic Continue PT and OT May need placement on discharge Social service is aware Subjective Patient is a morbidly obese male, sitting up comfortably in a bed, eating. In no acute distress. Denies any fevers, chills, shortness of breath, abdominal pain. He is breathing comfortably on room air. Says he has some discomfort with inspiration, says he always gets it when he gets viral infection/cold. Discussed with the patient his upcoming follow-up with PCP,Dr. Zohreh Ortiz in [facility]. Also discussed that he was accepted to [place] [facility]. Review of Systems Review of Systems: All systems reviewed and are unremarkable except as noted below Constitutional: + body aches and + weakness; no fever and no chills Respiratory: + cough (occasional); no dyspnea Gastrointestinal: + nausea; no abdominal pain and no vomiting Musculoskeletal: + back pain, + radicular pain and + joint pain Physical Exam Physical Exam: Physical Exam: Morbidly obese male sitting up in bed, in no acute distress, eating Constitutional: well developed, well nourished and + morbidly obese; no acute distress Eyes: PERRL, EOMI,conjunctivae normal, anicteric sclerae ENMT: external ear and nose normal, oropharynx normal Neck: trachea midline, no thyromegaly Respiratory: normal respiratory effort; no respiratory distress Auscultation: + diminished lung sounds and + crackles (Minimal crackles at the bases) Cardiovascular: Rate/Rhythm: regular rate and regular rhythm Heart Sounds: no murmur Extremities: + edema; no calf tenderness Gastrointestinal (Abdomen): Inspection/Auscultation: abdomen normal to inspection and normal bowel sounds Percussion/Palpation: abdomen soft; abdomen nontender Musculoskeletal: Complaints 1 going back pain with radiation down the legs and right foot pain Psychiatric: Affect: + depressed affect and + anxious affect Lymphatic: no cervical or axillary lymphadenopathy Results & Data Vital Signs (Past 12 Hours) Vital Signs Temp Pulse Pulse Resp BP BP Pulse Ox 08/24/19 07:46 36.4 C L 81 18 164/93 H 95 08/24/19 04:07 36.5 C 84 20 138/100 93 08/24/19 00:00 102 H 08/23/19 23:55 36.6 C 102 H 20 138/75 93 Laboratory Results 08/24/19 08/24/19 08/24/19 Range/Units 07:06 07:03 06:28 PT 17.9 H INR 1.8 H APTT 83.2 H* (21.0-31.0) Seconds PTT Ratio 3.1 Sodium 135 L (136-145) mmol/L Potassium 3.3 L (3.5-5.1) mmol/L Chloride 100 (98-107) mmol/L Carbon Dioxide 30 (21-32) mmol/L Anion Gap 5.0 (3-11) BUN 18 (7-18) mg/dl Creatinine 1.19 (0.6-1.4) mg/dl Est Cr Clr Drug Dosing 136.1 ml/min Est GFR ( Amer) 82.6 Est GFR (Non-Af Amer) 71.3 BUN/Creatinine Ratio 15.5 (10-20) Glucose 155 H (70-99) mg/dl POC Glucose 150 H (70-99) Calcium 9.9 (8.5-10.1) mg/dl 08/24/19 08/23/19 08/23/19 Range/Units 06:28 21:29 20:33 PT Cancelled INR Cancelled APTT Cancelled 128.0 H* Cancelled (21.0-31.0) Seconds PTT Ratio Cancelled 4.7 Cancelled Sodium (136-145) mmol/L Potassium (3.5-5.1) mmol/L Chloride (98-107) mmol/L Carbon Dioxide (21-32) mmol/L Anion Gap (3-11) BUN (7-18) mg/dl Creatinine (0.6-1.4) mg/dl Est Cr Clr Drug Dosing ml/min Est GFR ( Amer) Est GFR (Non-Af Amer) BUN/Creatinine Ratio (10-20) Glucose (70-99) mg/dl POC Glucose (70-99) Calcium (8.5-10.1) mg/dl 08/23/19 08/23/19 08/23/19 Range/Units 20:31 16:37 12:22 PT INR APTT 29.6 (21.0-31.0) Seconds PTT Ratio 1.1 Sodium (136-145) mmol/L Potassium (3.5-5.1) mmol/L Chloride (98-107) mmol/L Carbon Dioxide (21-32) mmol/L Anion Gap (3-11) BUN (7-18) mg/dl Creatinine (0.6-1.4) mg/dl Est Cr Clr Drug Dosing ml/min Est GFR ( Amer) Est GFR (Non-Af Amer) BUN/Creatinine Ratio (10-20) Glucose (70-99) mg/dl POC Glucose 189 H 230 H (70-99) Calcium (8.5-10.1) mg/dl 08/23/19 Range/Units 11:35 PT INR APTT (21.0-31.0) Seconds PTT Ratio Sodium (136-145) mmol/L Potassium (3.5-5.1) mmol/L Chloride (98-107) mmol/L Carbon Dioxide (21-32) mmol/L Anion Gap (3-11) BUN (7-18) mg/dl Creatinine (0.6-1.4) mg/dl Est Cr Clr Drug Dosing ml/min Est GFR ( Amer) Est GFR (Non-Af Amer) BUN/Creatinine Ratio (10-20) Glucose (70-99) mg/dl POC Glucose 241 H (70-99) Calcium (8.5-10.1) mg/dl Medications Administered Current Inpatient Medications Albuterol (Duoneb) 3 ml NEB QIDR PRN PRN Reason: SOB/wheezing Stop: 09/12/19 18:59 Aspirin (Ecotrin Ectab) 81 mg PO QAM [facility] Stop: 09/11/19 08:59 Last Admin: 08/24/19 08:14 Dose: 81 mg Documented by: Benzonatate (Tessalon Perle) 100 mg PO TID PRN PRN Reason: Cough Stop: 09/23/19 06:29 Last Admin: 08/24/19 08:07 Dose: 100 mg Documented by: Budesonide/Formoterol Fumarate (Symbicort 160mcg/4.5mcg) 2 puffs INH BID [facility] Stop: 09/15/19 20:59 Last Admin: 08/24/19 08:15 Dose: 2 puffs Documented by: Clonidine HCl (Zbhwpker-Zps-3 0.1mg/24hr) 1 patch TD Mo@1630 [facility] Stop: 09/13/19 16:29 Last Admin: 08/21/19 15:26 Dose: Not Given Documented by: Dextrose (Dextrose 50%) 25 - 50 ml IV UD PRN; Protocol PRN Reason: Hypoglycemia Protocol Stop: 09/10/19 23:05 Docusate Sodium (Colace) 100 mg PO BID [facility] Stop: 09/11/19 08:59 Last Admin: 08/24/19 08:14 Dose: 100 mg Documented by: Duloxetine HCl (Cymbalta) 60 mg PO QAM [facility] Stop: 09/11/19 08:59 Last Admin: 08/24/19 08:14 Dose: 60 mg Documented by: Finasteride (Proscar) 5 mg PO QAM [facility] Stop: 09/11/19 08:59 Last Admin: 08/24/19 08:15 Dose: 5 mg Documented by: Fluticasone Propionate (Flonase) 2 sprays NA QAM [facility] Stop: 09/11/19 08:59 Last Admin: 08/24/19 08:13 Dose: 2 sprays Documented by: Gabapentin (Neurontin) 300 mg PO TID [facility] Stop: 09/11/19 08:59 Last Admin: 08/24/19 08:12 Dose: 300 mg Documented by: Glucagon (Glucagen) 1 mg SQ UD PRN; Protocol PRN Reason: Hypoglycemia Protocol Stop: 09/10/19 23:05 Glucose (Glucose 40%) 15 - 30 gm PO UD PRN; Protocol PRN Reason: Hypoglycemia Protocol Stop: 09/10/19 23:05 Glucose (Dex4 Glucose) 4 - 8 tabs PO UD PRN; Protocol PRN Reason: Hypoglycemia Protocol Stop: 09/10/19 23:05 Hydroxyzine HCl (Vistaril) 25 mg PO QID PRN PRN Reason: Anxiety Stop: 09/10/19 23:05 Last Admin: 08/23/19 20:33 Dose: 25 mg Documented by: Furosemide 40 mg/ Syringe 4 mls @ 4 mls/min IV Q8H EMPERATRIZ Stop: 09/13/19 09:59 Last Admin: 08/24/19 01:49 Dose: 4 mls/min Documented by: Heparin Sodium/Dextrose (Heparin Sodium/Dextrose) 25,000 units in 500 mls @ 38 mls/hr IV .[id number] [facility]; Protocol Stop: 09/21/19 08:14 Last Titration: 08/24/19 08:30 Dose: 1,900 units/hr, 38 mls/hr Documented by: Promethazine HCl 6.25 mg/ (Sodium Chloride) 50.25 mls @ 201 mls/hr IV Q6H PRN PRN Reason: Nausea And Vomiting Stop: 09/23/19 06:30 Insulin Aspart (Novolog Flexpen) 0 units SC ACHS [facility] Stop: 09/10/19 23:29 Last Admin: 08/24/19 08:02 Dose: 4 units Documented by: Insulin Glargine (Lantus Solostar Pen) 5 units SC DAILY [facility] Stop: 09/11/19 08:59 Last Admin: 08/24/19 08:03 Dose: 5 units Documented by: Ipratropium Craigmont (Atrovent 0.02% 0.5mg/2.5ml) 0.5 mg INH Q4H PRN PRN Reason: SOB/WHEEZING Stop: 09/10/19 22:59 Isosorbide Mononitrate (Imdur Extended Rel) 30 mg PO DAILY [facility] Stop: 09/11/19 08:59 Last Admin: 08/24/19 08:13 Dose: 30 mg Documented by: Levalbuterol HCl (Xopenex 1.25mg/0.5ml Neb) 1.25 mg INH Q4H PRN PRN Reason: SOB/WHEEZING Stop: 09/10/19 22:59 Lidocaine (Lidoderm 5%) 1 patch TD 1900 [facility] Stop: 09/22/19 18:59 Last Admin: 08/23/19 20:34 Dose: Not Given Documented by: Loperamide HCl (Imodium) 2 mg PO UD PRN PRN Reason: Diarrhea Stop: 09/13/19 16:39 Lorazepam (Ativan) 1 mg PO TID PRN PRN Reason: anxiety Stop: 09/10/19 23:18 Last Admin: 08/24/19 01:58 Dose: 1 mg Documented by: Magnesium Oxide (Mag-Ox) 400 mg PO DAILY@1700 [facility] Stop: 09/12/19 16:59 Last Admin: 08/23/19 16:46 Dose: 400 mg Documented by: Menthol (Nice) 1 lashon BUCCAL Q4H PRN PRN Reason: Sore Throat Stop: 09/14/19 13:55 Menthol (Nice) 1 lashon BUCCAL Q2H PRN PRN Reason: Sore Throat Stop: 09/23/19 06:31 Metoprolol Succinate (Toprol Xl) 50 mg PO BID [facility] Stop: 09/10/19 20:44 Last Admin: 08/24/19 08:11 Dose: 50 mg Documented by: Mirtazapine (Remeron) 15 mg PO HS [facility] Stop: 09/13/19 20:59 Last Admin: 08/23/19 20:34 Dose: Not Given Documented by: Miscellaneous (Remove Nicoderm Patch) 1 ea N/A DAILY@0859 [facility] Stop: 09/11/19 08:58 Last Admin: 08/24/19 08:14 Dose: 1 ea Documented by: Miscellaneous (Carbohydrates For Hypoglycemia) 15 - 30 gm PO UD PRN PRN Reason: Hypoglycemia Protocol Stop: 09/10/19 23:05 Miscellaneous (Check Clonidine Patch) 1 ea N/A QS [facility] Stop: 09/14/19 00:00 Last Admin: 08/24/19 08:14 Dose: Not Given Documented by: Miscellaneous (Remove Clonidine Patch) 1 ea N/A Mo@1629 [facility] Stop: 09/20/19 16:28 Last Admin: 08/21/19 15:25 Dose: Not Given Documented by: Miscellaneous (Remove Lidoderm Patch) 1 ea N/A DAILY@0700 [facility] Stop: 09/23/19 06:59 Last Admin: 08/24/19 07:33 Dose: Not Given Documented by: Morphine Sulfate (Ms Contin) 15 mg PO DAILY [facility] Stop: 08/25/19 09:01 Last Admin: 08/24/19 08:07 Dose: 15 mg Documented by: Nicotine ([facility]oderm Cq) [facility] Stop: 09/10/19 22:54 Last Admin: 08/24/19 08:12 Dose: 21 mg Documented by: Nitroglycerin (Nitrostat) 0.4 mg SL UD PRN PRN Reason: Chest Pain Stop: 09/10/19 23:05 Nystatin (Mycostatin) 10 ml PO QID [facility] Stop: 09/16/19 16:59 Last Admin: 08/24/19 08:08 Dose: Not Given Documented by: Oxycodone HCl (Roxicodone Immediate Rel) 20 mg PO Q6H PRN PRN Reason: Pain Stop: 09/05/19 15:00 Last Admin: 08/24/19 06:16 Dose: 20 mg Documented by: Pantoprazole Sodium (Protonix) 40 mg PO QAM [facility] Stop: 09/11/19 08:59 Last Admin: 08/24/19 08:11 Dose: 40 mg Documented by: Polyethylene Glycol (Miralax Powder Packet) 17 gm PO DAILY PRN PRN Reason: Constipation Stop: 09/15/19 22:56 Last Admin: 08/24/19 08:25 Dose: 17 gm Documented by: Potassium Chloride (Klor-Con M20) 20 meq PO BID17 [facility] Stop: 09/12/19 16:59 Last Admin: 08/24/19 08:09 Dose: 20 meq Documented by: Prednisone (Prednisone) 5 mg PO DAILY [facility] Stop: 09/11/19 08:59 Last Admin: 08/24/19 08:11 Dose: 5 mg Documented by: Promethazine HCl (Phenergan) 12.5 mg PO Q6H PRN PRN Reason: Nausea And Vomiting Stop: 09/22/19 11:13 Last Admin: 08/23/19 11:49 Dose: 12.5 mg Documented by: Spironolactone (Aldactone) 25 mg PO DAILY [facility] Stop: 09/11/19 08:59 Last Admin: 08/24/19 08:09 Dose: 25 mg Documented by: Tamsulosin HCl (Flomax) 0.4 mg PO DAILY [facility] Stop: 09/11/19 08:59 Last Admin: 08/24/19 08:09 Dose: 0.4 mg Documented by: Tiotropium Craigmont (Spiriva) 1 puffs INH DAILY [facility] Stop: 09/11/19 08:59 Last Admin: 08/24/19 08:10 Dose: 1 puffs Documented by: Warfarin Sodium (Coumadin) 7.5 mg PO DAILY@1600 [facility] Stop: 09/19/19 15:59 Last Admin: 08/23/19 16:46 Dose: 7.5 mg Documented by: (1) Sepsis Sepsis acute organ dysfunction status: unspecified Sepsis type: sepsis due to unspecified organism Qualified Code(s): A41.9 - Sepsis, unspecified organism (2) Anemia Anemia type: unspecified type Qualified Code(s): D64.9 - Anemia, unspecified (3) COPD (chronic obstructive pulmonary disease) COPD type: emphysema Emphysema type: unspecified Qualified Code(s): J43.9 - Emphysema, unspecified
[2019-08-24] MEDS ORDERED: NURSING DECISION MEDICATION ONE (10:19)
[2019-08-24] MEDS ORDERED: CHLORASEPTIC 1.4% SOLN 180 ML BTL MT PRN (10:34)
[2019-08-24] MEDS: PROMETHAZINE HCL 6.25 MG in SODIUM CHLORIDE 0.9% 50 ML IV PRN (10:53)
[2019-08-24] MEDS: HEPARIN SODIUM/DEXTROSE 25,000 UNITS/500 ML BAG IV SCH ×2 (12:16→23:52)
[2019-08-24] MEDS: MAGNESIUM OXIDE 400 MG TAB PO SCH (15:44)
[2019-08-24] MEDS: WARFARIN SOD 7.5 MG TAB PO SCH (15:44)
[2019-08-24] MEDS: LIDOCAINE 5% 1 PATCH TD SCH (15:45)
[2019-08-24 15:47] LABS: Partial Thromboplastin Ratio 2.2
[2019-08-24 16:03] LABS: Partial Thromboplastin Time 60.4 Seconds (21.0-31.0)
--- NOTE | 2019-08-24 17:53 | XRay Report ---
SINGLE VIEW CHEST CLINICAL HISTORY: Atypical chest pain with inspiration. FINDINGS: 2 AP, portable, upright chest radiographs are compared to chest x-ray dated 08/11/2019 and correlated with chest CT dated 08/01/2019. The examination is degraded by portable technique, large b dick habitus, and apical lordotic positioning. The cardiomediastinal silhouette is top normal for pro jection. There is mild bibasilar atelectasis. The lungs and pleural spaces are otherwise clear. No pn eumothorax is seen. There is chronic posttraumatic deformity of the left clavicle. IMPRESSION: No active disease in the chest and no significant change from recent prior studies. Electronically signed by: Misael Lopez M.D. 08/24/2019 5:52 PM
[2019-08-24] MEDS ORDERED: POTASSIUM CHLORIDE 20 MEQ TABCR PO ONE (19:15)
[2019-08-24] MEDS ORDERED: predniSONE 20 MG TAB PO ONE (19:15)
[2019-08-24] MEDS: MIRTAZAPINE TAB 15 MG TAB PO SCH (20:42)
[2019-08-24] MEDS: guaiFENesin 600 MG TABCR PO SCH (20:42)
[2019-08-25] MEDS: LORazepam 1 MG TAB PO PRN ×3 (00:18→14:29)
[2019-08-25] MEDS: FUROSEMIDE 40 MG in SYRINGE 0 ML IV SCH ×2 (00:19→09:40)
[2019-08-25] MEDS ORDERED: CHLOROTHIAZIDE SODIUM 500 MG in DEXTROSE 5% 50 ML IV ONE (01:30)
[2019-08-25] MEDS: OXYCODONE HCL IR 5 MG TAB (IMMEDIATE RELEASE) PO PRN ×3 (06:06→16:24)
[2019-08-25 06:38] LABS: Hematocrit (blood only) 35.4 % (42-52); Hemoglobin 10.6 g/dL (14.0-18.0); Mean Corpuscular Hemoglobin 22.6 pg (25-34); Mean Corpuscular Hgb Conc 29.9 g/dL (32-36); Mean Corpuscular Volume 75.6 fL (80-100); Mean Platelet Volume 10.6 fL (7.4-10.4); Platelet Count 390 K/uL (130-400); RDW Coefficient of Variation 18.5 % (11.5-14.5); RDW Standard Deviation 50.9 fL (36.4-46.3); Red Blood Count 4.68 M/uL (4.7-6.1); White Blood Count 14.17 K/uL (4.8-10.8)
[2019-08-25 06:57] LABS: INR 1.9 (0.9-1.1); Partial Thromboplastin Ratio 2.2; Prothrombin Time 18.5 Seconds (9.0-12.0)
[2019-08-25 07:12] LABS: Partial Thromboplastin Time 59.9 Seconds (21.0-31.0)
[2019-08-25 07:15] LABS: BUN Creatinine Ratio 13.2 (10-20); Calcium 10.6 mg/dl (8.5-10.1); Creatinine Clr Calc Pharmacy 125.1 ml/min; Est GFR (Non-African American) 64.7; Magnesium 2.1 mg/dl (1.8-2.4)
[2019-08-25] MEDS: CHECK CLONIDINE PATCH PLACEMENT SCH ×2 (09:06→16:16)
[2019-08-25] MEDS: guaiFENesin 600 MG TABCR PO SCH (09:39)
[2019-08-25] MEDS: predniSONE 5 MG TAB PO SCH (09:40)
[2019-08-25] MEDS: GABAPENTIN 300 MG CAP PO SCH ×2 (09:41→14:29)
[2019-08-25] MEDS: PANTOprazole 40 MG TAB PO SCH (09:41)
[2019-08-25] MEDS: METOPROLOL SUCC 50MG EXT REL TAB PO SCH (09:42)
[2019-08-25] MEDS: DOCUSATE SODIUM 100 MG CAP PO SCH (09:43)
[2019-08-25] MEDS: DULOXETINE HCL 60 MG CAP PO SCH (09:43)
[2019-08-25] MEDS: TIOTROPIUM BROMIDE 5 PUFF/90 MCG INH INH SCH (09:44)
[2019-08-25] MEDS: BUDESONIDE/FORMOTEROL FUMARATE 160/4.5 60 PUFFS/INHALER INH SCH (09:45)
[2019-08-25] MEDS: FLUTICASONE PROPIONATE NA SPR 16 GM BTL SCH (09:45)
[2019-08-25] MEDS: ASPIRIN 81 MG ECTAB PO SCH (09:46)
[2019-08-25] MEDS: TAMSULOSIN HCL 0.4 MG CAP PO SCH (09:46)
[2019-08-25] MEDS: SPIRONOLACTONE 25 MG TAB PO SCH (09:46)
[2019-08-25] MEDS: ISOSORBIDE MONO EXTENDED REL 30 MG TABCR PO SCH (09:47)
[2019-08-25] MEDS: NICOTINE 21 MG/24 HR TDSY TD SCH (09:49)
[2019-08-25] MEDS: NYSTATIN SUSP 500,000 U/5 ML UDC PO SCH ×3 (09:49→16:17)
[2019-08-25] MEDS: MoRPHine SULFATE CR 15 MG TABCR PO SCH (09:49)
[2019-08-25] MEDS: PROMETHAZINE HCL 6.25 MG in SODIUM CHLORIDE 0.9% 50 ML IV PRN (09:50)
[2019-08-25] MEDS: INSULIN GLARGINE SOLOSTAR 100 UNITS/ML 3 ML PEN SC SCH (09:52)
[2019-08-25] MEDS: INSULIN ASPART 100 UNITS/ML 3 ML PEN SC SCH ×2 (09:53→12:31)
[2019-08-25] MEDS: POTASSIUM CHLORIDE 20 MEQ TABCR PO SCH ×2 (10:11→16:22)
[2019-08-25] MEDS: FINASTERIDE 5 MG TAB PO SCH (10:11)
[2019-08-25] MEDS: HEPARIN SODIUM/DEXTROSE 25,000 UNITS/500 ML BAG IV SCH (14:15)
[2019-08-25] MEDS: WARFARIN SOD 7.5 MG TAB PO SCH (16:22)
[2019-08-25] MEDS: MAGNESIUM OXIDE 400 MG TAB PO SCH (16:24)
--- NOTE | 2019-08-25 17:39 | Discharge Summary ---
Date of Service August 25, 2019 Admission HPI Per Admitting Provider History obtained from patient and records. Medical history is significant for chronic diastolic heart failure (EF 60 to 65%, TTE 2018), hypertension, steroid-dependent COPD, recurrent PE on Coumadin, DM 2 diet-controlled, chronic pain on narcotics, mood disorder, chronic anemia baseline hemoglobin 9-10, BPH/chronic urinary retention indwelling Lloyd catheter, ongoing tobacco abuse. Recent confinement May 2019 for metabolic encephalopathy. 2 weeks history of intermittent left-sided chest pain symptoms even at rest occasionally going to the left arm, relieved by home nitro. Patient also noted weight gain of almost 40 pounds in the last 3 weeks. Erratic compliance with home diuretic due to difficulty with urination/catheter issues as per outpatient notes. Increased abdominal distention without pain. Patient tries to limit fluid intake to less than 2 L a day. Patient admitted at [facility] overnight for CHF/COPD attack as per patient. At home, increase fluid retention and increase bilateral leg redness/swelling with clear drainage from leg sores. No fever, some chills. At the ER, patient received IV Vancomycin for sepsis. Medical History as above Surgical History : Foot/toe surgery, nerve repair, hand surgery, scalp neck wound injury Family History : Breast cancer, heart disease, COPD Personal/Social history : One pack daily, no EtOH intake, disabled Admission Exam Per Admitting Provider GENERAL: Comfortable, obese, looks older than stated age, no respiratory distress SKIN: Pallor, warm HEENT: Alopecia, pale palpebral conjunctivae, no ptosis, dry buccal mucosa NECK : Supple, short neck, no tenderness CHEST : Decreased breath sounds , no tenderness HEART : Tachycardic , no obvious murmurs ABDOMEN: distention, nontender EXTREMITIES : Superficial wounds on anterior surface of both lower legs, bilateral LE swelling with minimal LE tenderness, no other conspicuous deformities noted NEUROLOGIC : Coherent, no facial asymmetry, no other gross focality Principal Diagnosis Acute exacerbation of congestive heart failure, diabetes mellitus type 2, catheter associated urinary tract infection, cellulitis of lower extremities, opioid use Discharge Exam Physical Exam: Morbidly obese male sitting up in bed, in no acute distress, eating Constitutional: well developed, well nourished and + morbidly obese; no acu te distress Eyes: PERRL, EOMI,conjunctivae normal, anicteric sclerae ENMT: external ear and nose normal, oropharynx normal Neck: trachea midline, no thyromegaly Respiratory: normal respiratory effort; no respiratory distress Auscultation: + diminished lung sounds and + crackles (Minimal crackles at the bases) Cardiovascular: Rate/Rhythm: regular rate and regular rhythm Heart Sounds: no murmur Extremities: + edema; no calf tenderness Gastrointestinal (Abdomen): Inspection/Auscultation: abdomen normal to inspection but obese, normal bowel sounds Percussion/Palpation: abdomen soft; abdomen nontender Musculoskeletal: moves all 4 extremities spontaneously Psychiatric: Affect: + somewhat anxious affect Lymphatic: no cervical or axillary lymphadenopathy Discharge Data Allergies Allergy/AdvReac Type Severity Reaction Status Date / Time fentanyl Allergy Intermediate RASH/HIVES/SKIN Verified 08/11/19 18:15 REDNESS acetaminophen AdvReac Intermediate Unknown Verified 08/11/19 18:15 valproic acid AdvReac Intermediate PANCREATITS Verified 08/11/19 18:15 Consultations 08/11/19 19:44 ED Decision to Admit Stat 08/11/19 23:06 Consult Cardiology Routine Ordered Studies 08/11/19 21:46 US abdomen ltd ascites Urgent US venous doppler LE Routine Hospital Course (1) Opioid dependence: Multidisciplinary team involving pain therapist, hospital service excellence, liaison nurse and Dr. Vasquez (hospitalist) He has documented chronic back pain with radiculopathy and chronic foot pain We had a long discussion with the patient regarding his chronic pain and its management It was decided that he will need some narcotic pain medications to control pain as per the pain therapist He was warned against possible side effect of narcotics pain medications and its potential for addiction Plan #1: He might need to be reevaluated by pain therapist for decreasing or increasing pain medications : He will be assigned to a possible [facility] PCP as an outpatient who will provide the narcotics as planned by the pain therapist : He will be discharged with an appointment with pain clinic in [place] with a referral discharge summary on discharge from the hospital : He will need to have periodic follow-up with the pain clinic in [place] if he is accepted. Plan #2: In case he is not been accepted to the pain clinic at [place] then he will be seen by Dr. Carter and his group for recommendation of narcotics : In this case he will need to have a [facility] PCP who will continue to prescribe if the narcotics for him and do the monitoring as an outpatient. This was clearly stated to the patientan d after discussion with Dr. Carter he was started with Oxycodone 20 mg every 6 hourly as needed He is allowed to have up to 80 mg of oxycodone a day and he may take it every 4 or 6 hrs as he needs it. 08/22 Patient continues to complain of some low back pain, which is chronic, started lidocaine patch Note since admission until 08/21/19 (prior to multidisciplinary meeting) Continue home regimen of morphine 15 mg p.o. twice daily with oxycodone for breakthrough pain. The patient has a significant history of drug-seeking behaviors and pain management specialists in this institution recommend that he is a poor candidate for long-term utilization of narcotics secondary to nonmalignant pain and a history of noncompliance with medical treatment. Will wean from narcotics with the following regimen, recommended back in May 2019 by network diagnostic support specialist. Decrease oxycodone to 15mg PO q8h PRN x 2 days, then 15mg PO q12h x 2 days, then stop. Cont MS [id number] PO q12h during this time, and after oxycodone is off, change MS Contin to 15 daily x 7 days, then stop. Add clonidine 0.1mg/wk patch and remeron nightly. Imodium for diarrhea as needed. Recommend the patient seek inpatient or outpatient drug and alcohol counseling to assist with his opiate dependency. We will discuss with the Dr. Adam and Dr. Valencia for continuation of narcotics as he was prescribed from [facility] For now we will continue as per the plan [facility] will not take him so Dr. Adam and/or Dr. Valencia will not be able to write the prescription of narcotics Will stress to continue with weaning protocol of narcotics with the patient We will continue to follow the weaning protocol for narcotics I will discuss with Dr. Carter for any dose that can be given before the physical therapy Discussed with Dr. Carter and his short-acting pain medication will be given before participating with physical therapy Continue with the weaning protocol Still has been receiving 1 dose of MSIR before physical therapy Was given 1 dose of morphine 4 mg intravenously for increasing back pain with radiculopathy on 08/20 Will be given 1 dose of oxycodone 15 mg before the scheduled physical therapy He will be seen by the pain therapist sometime this afternoon (2) Chronic chest pain: Initial troponin trend was negative. At least 2 EKGs with sinus tachycardia and no evidence of acute ischemia. Patient has a history of chronic chest pain. Cont Imdur per home regimen. Continue supportive care. Has been complaining of chest pain during the hospitalization Sublingual nitro did not relieve the pain Received 1 dose of intravenous morphine 4 mg EKG and troponin are unremarkable Complaint to have chest pain again EKG and troponin were unremarkable No more intravenous morphine for chest pain Has had chest pain again without any EKG and/or troponin changes Denies any more chest pain Seen by the pain therapist and head of service excellence Remains medically stable 08/24 Continues to have chest discomfort on inspiration, says this happens to him when he gets viral infection etc., will order chest x-ray to further evaluate, CXR - no changes (3) Sepsis: Likely secondary to leg cellulitis vs UTI Improved on antibiotics and appears resuscitated from a sepsis standpoint. Remains afebrile and white count has improved We will continue current antibiotic for now Antibiotics changed to oral Augmentin as per sensitivity No signs of ongoing infection We will continue Augmentin for about 14 days in total We will give probiotics as well Augmentin has been discontinued from 08/21 (4) Catheter-associated urinary tract infection: zabala-sensitive E. faecalis. Cont Dapto and cefepime pending other blood culture results. Blood cultures have been negative We will discontinue Dapto and cefepime Will start Augmentin to cover staph and UTI We will continue antibiotic for a total of 14 days Antibiotic course is finished (5) Cellulitis of both lower extremities: Much improved today. Erythema is completely resolved surrounding the wounds which are growing S. aureus. Wound care nurse consult. Continue Dapto and cefepime pending cultures and continued clinical improvement. Blood cultures have been negative Wound culture staph aureus sensitive to oxacillin Urine culture Enterococcus faecalis sensitive to ampicillin Augmentin to continue for a total of 14 days Cellulitis of the legs have resolved Discontinue Augmentin 08/21 (6) Acute right-sided congestive heart failure: Acute on chronic diastolic CHF/acute on chronic CHF with preserved EF. Net 5L negative overnight and having hand cramping likely as a result of the aggressive diuresis efforts. Cont Mg and potassium supplementation as needed. Continue spironolactone per home regimen. Daily standing weights. Strict I/Os. Cont fluid restriction and sodium restricted diet. Appreciate cardiology input and recommendation Diuresing enough Creatinine remains stable Continue current dose of Lasix and he is responding to it without any renal impairment Denies any symptoms related to volume overload Has been getting usual dose of Lasix without any involvement of the kidney Will D/C with detailed instructions regarding fluid/salt/ weight management. Instructed to weigh himself daily and notify health care provider if incr. weight (2 lbs overnight or 5 lbs over week). Pt also prescribed metolazone to take 30 min prior to lasix if needed (if incr. weight), also increased his lasix home PO dose. Pt understands and agrees with the plan. (7) DM type 2 (diabetes mellitus, type 2): Inpatient glucose controlled, however, A1C is 8.0. Patient is currently "diet- controlled" at home which is very inappropriate. Appreciate pharmacist management of diabetes Patient started on insulin - will D/C with insulin - 5 units of long-acting insulin daily No acute issue (8) Anemia: Chronic and at baseline. Continue to monitor periodically. (9) COPD (chronic obstructive pulmonary disease): Chronic, appears stable but he did have some wheezing previously on exam which is improved. Not in exacerbation. He is steroid dependent. Continue Spiriva, Breo and prednisone. Guaifenesin Cont nebulizers and move to PRN dosing. (10) Morbid obesity: Advised lifestyle change starting with portion control. Patient is looking into options for bariatric surgery. (11) Depression with anxiety: Likely result of multiple comorbidities, including chronic pain with chronic narcotic use. Continue home Cymbalta. (12) History of pulmonary embolism: INR 1.9, pt has been on IV heparin Continue coumadin Discussed with the nurse to make sure that the medicine is taken by the patient when administered Will need to follow up on INR as outpt (13) Tobacco abuse: Advised to quit smoking. Continue NicoDerm. Contemplative phase. Also discussed 1 800 quit now smoking cessation line in detail, as he says that he is doing well with nicotine patches right now, however he is concerned about the león (14) DVT prophylaxis: coumadin, IV heparin Disposition - home w/ home health services. Of note, patient was recently at [facility] and demonstrated very poor participation in rehabilitation efforts. If rehab is a consideration at time of discharge, would recommend discussing with Dr. Adam in detail prior to moving him back to [facility] as an option. [facility] will not take the patient Continue PT and OT Social service is aware Total Time Total Time Spent Total Time Spent (In Minutes): 45 Total Time Includes: Examination of the Patient, Discharge Planning, Medication Reconciliation and Communication With Other Providers Discharge Plan Discharge Items Patient Disposition: Home - Home Health Services Reason For Visit: R CHF,SEPSIS Discharge Diagnosis: Acute exacerbation of congestive heart failure, diabetes mellitus type 2, catheter associated urinary tract infection, cellulitis of lower extremities, opioid use Activity: Resume your previous activity Activity Comment: as tolerated, pace yourself and ask for help as needed Non-emergency contact: Primary Care Provider Call non-emergency contact if: you have any medication questions and your symptoms worsen Follow-up/Referrals: Zohreh Ortiz DO [Primary Care Provider] - Diet: Carb Consistent or DM2 and Low Sodium (2gm) Fluids: 1800ml (7 cups) Addtl Attending Provider Instructions: You will need to follow-up with primary care provider within 1 week of discharge. You will be called about the appointment. You will also follow-up at pain clinic in [place]. Stay on liquid restricted diet, and low-sodium diet as mentioned above. Weigh yourself daily in the morning, write down your weight. If you gain more than 2 pounds overnight or 5 pounds over 1 week, you will need to contact your primary care provider. Also if you gain more than 2 pounds overnight take metolazone 30 minutes before your Lasix. Use insulin, 5 units daily, as was described to you by bow maker custom. Make sure to check and write down your blood glucose levels, and show these to your primary care provider so they can adjust your insulin. Do not use more than 80 mg of oxycodone in a day. As discussed in detail with you while in the hospital, you can take 20 mg up to 4 times a day max. You should only take this medication on an as-needed basis. Pending Studies at Discharge: No Stand-Alone Forms: Call Back Authorization, My [facility], Smoking Cessation Medications and DC Order Prescriptions: New nystatin 100,000 unit/mL Suspension 10 ml PO QID 10 Days Qty: 400 RF: 0 warfarin [Coumadin] 7.5 mg Tablet 7.5 mg PO DAILY@1600 14 Days Qty: 14 RF: 0 Lantus Solostar U-100 Insulin 100 unit/mL (3 mL) Insulin Pen 5 unit SC DAILY 10 Days Qty: 0.5 RF: 0 benzonatate [Tessalon Perles] 100 mg Capsule 100 mg PO TID PRN (Reason: cough) 14 Days Qty: 30 RF: 0 guaifenesin [Mucinex] 600 mg Tablet Extended Release 12hr 1,200 mg PO Q12 10 Days Qty: 40 RF: 0 polyethylene glycol 3350 [Miralax] 17 gram Powder In Packet 17 g PO DAILY PRN (Reason: constipation) 14 Days Qty: 10 RF: 0 metolazone 5 mg tablet 5 mg PO DAILY PRN (Reason: diuresis) 14 Days Qty: 14 RF: 0 oxycodone 20 mg tablet 20 mg PO QID PRN (Reason: severe pain) Qty: 28 RF: 0 Continued gabapentin 300 mg Capsule 300 mg PO TID RF: 0 ondansetron 4 mg Tablet,Disintegrating 4 mg PO Q4H PRN (Reason: Nausea And Vomiting) RF: 0 polyethylene glycol 3350 [Miralax] 17 gram powder in packet 17 g PO Q24H PRN (Reason: Constipation) RF: 0 nitroglycerin [Nitrostat] 0.4 mg tablet, sublingual 0.4 mg Sublingual DIRECTED PRN (Reason: CHEST PAIN) RF: 0 nystatin 100,000 unit/gram Powder 1 applic TOPICAL BID PRN (Reason: Skin Irritation) RF: 0 omeprazole 20 mg capsule,delayed release(DR/EC) 20 mg PO QAM RF: 0 cyclobenzaprine 10 mg Tablet 10 mg PO BID RF: 0 ipratropium-albuterol 0.5 mg-3 mg(2.5 mg base)/3 mL Solution For Nebulization 3 ml INHALATION QID RF: 0 magnesium oxide 400 mg (241.3 mg magnesium) Tablet 400 mg PO BID RF: 0 Fleet Enema 19-7 gram/118 mL Enema 118 ml MS DAILY PRN (Reason: Constipation) RF: 0 docusate sodium 100 mg Capsule 100 mg PO BID RF: 0 fluticasone furoate 27.5 mcg/actuation [place],Suspension 1 spray INTRANASAL DAILY PRN (Reason: Allergy Symptoms) RF: 0 Lactinex 1 million cell Tablet,Chewable 1 tab PO BID RF: 0 hydroxyzine HCl 25 mg tablet 25 mg PO QID PRN (Reason: Anxiety) RF: 0 fluticasone propionate 50 mcg/actuation spray,suspension 2 spray Intranasal QAM RF: 0 aspirin [Ecotrin Low Strength] 81 mg tablet,delayed release (DR/EC) 81 mg PO QAM RF: 0 duloxetine 60 mg capsule,delayed release(DR/EC) 60 mg PO QAM RF: 0 Spiriva with HandiHaler 18 mcg capsule, w/inhalation device 1 puff inhalation DAILY RF: 0 finasteride 5 mg tablet 5 mg PO QAM RF: 0 tamsulosin [Flomax] 0.4 mg Capsule 0.4 mg PO DAILY RF: 0 albuterol sulfate [Ventolin HFA] 90 mcg/actuation HFA aerosol inhaler 2 puff inhalation Q4H PRN (Reason: Wheezing) RF: 0 lorazepam [Ativan] 1 mg tablet 1 mg PO TID PRN (Reason: Anxiety) RF: 0 potassium chloride 10 mEq tablet,ER particles/crystals 20 meq PO BID Qty: 30 RF: 0 metoprolol succinate 50 mg Tablet Extended Release 24 Hr 50 mg PO BID RF: 0 isosorbide mononitrate 30 mg Tablet Extended Release 24 Hr 30 mg PO DAILY RF: 0 prednisone 5 mg Tablet 5 mg PO DAILY RF: 0 spironolactone 25 mg Tablet 25 mg PO DAILY RF: 0 Breo Ellipta 200-25 mcg/dose Blister With Device 1 inh INHALATION DAILY RF: 0 Changed furosemide [Lasix] 80 mg Tablet 80 mg PO TID Qty: 0 RF: 0 Discontinued warfarin [Coumadin] 5 mg tablet 5 mg PO [id number] RF: 0 tramadol 50 mg Tablet 50 mg PO Q4 PRN (Reason: Pain) RF: 0 oxycodone 15 mg Tablet 15 mg PO Q4H PRN (Reason: Pain) RF: 0 warfarin 5 mg Tablet 2.5 mg PO WK RF: 0 morphine 15 mg Tablet Extended Release 15 mg PO Q12H RF: 0 Discharge Orders: Discharge Order (Routine); Ordered 08/25/19 Ordered By: Derrell Pickering/Other Patient Handouts: Diabetes [facility] Complications, Diabetes Resources, Diabetes Type 2 Coping, Diabetes Healthy Meals, Diabetes Carbs, Diabetes Exercise Benefits, Diabetes Exercise Get Started, Diabetes Activity Tips, Diabetes Living Life, A1C Admission Data Admit Date/Time: 08/11/19 21:38 Attending Provider: Derrell Whitley Admit Provider: Waldemar Galarza Primary Care Provider: Zohreh Ortiz Other Providers: Waldemar Galarza ; Miguel Angel Lee ; Mala Grace ; [facility] ; [facility] ; Augustus aVsquez Other Interventions: Discharge Summary Assessment (RN) Last Done: 08/25/19 17:37 DC Date/Time DO NOT enter until pt leaves facility: 08/25/19 18:05
--- NOTE | 2019-08-31 09:06 | Communication Note ---
Date of Service: August 31, 2019 History of chronic pain. PDMP data reviewed. History of multiple prescriptions for controlled substances from multiple providers. Per Pain Management, current recommendation is to continue oxycodone 20 mg QID PRN. Patient was discharged to home on 08/25/19 and given Rx for oxycodone 20 mg QID PRN # 30. He was referred to [facility] in [place] for pain management and associated prescriptions. Pain Management will not be able to offer analgesic prescriptions until they complete their evaluation- approximately 3-4 weeks. Patient will certainly present to an ED (and probably be admitted) with pain or withdrawal symptoms if he runs out of his oxycodone. Therefore, I agreed to provide Rx's to be filled weekly for up to [address] [facility] assumes responsibility for prescribing his analgesics. Will send prescriptions to [facility] for oxycodone 20 mg, QID PRN severe pain, # 28.
--- NOTE | 2019-09-07 12:53 | Communication Note ---
Date of Service: September 07, 2019 Rx for oxycodone 20 mg QID PRN severe pain # 28 sent to [facility]. Please refer to previous documentation.
--- NOTE | 2019-09-14 08:28 | Communication Note ---
Date of Service: September 14, 2019 Rx for oxycodone 20 mg QID PRN severe pain # 28 sent to [facility]. Please refer to previous documentation.
--- NOTE | 2019-09-21 06:31 | Communication Note ---
Date of Service: September 21, 2019 Rx for oxycodone 20 mg QID PRN severe pain # [address] [facility]. Please refer to previous documentation.
== END 2019-08-25 18:05 | disposition home health service (06) | DRG 871 ==
LOC: ED 17:40 → SUATTDRO 21:38 → 2E 21:38

== ENCOUNTER 2019-09-23 16:22 | Inpatient (IN) ==
[2019-09-23] MEDS ORDERED: ALBUTEROL 0.083% NEBU SOLN 3 ML VIAL NEB STA (16:57)
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
[2019-09-23 17:33] LABS: Basophils # (auto) 0.02 K/uL (0-0.2); Basophils % (auto) 0.1 %; Eosinophils # (auto) 0.05 K/uL (0-0.5); Eosinophils % (auto) 0.3 %; Hemoglobin 10.3 g/dL (14.0-18.0); Immature Granulocytes # (auto) 0.13 K/uL (0.00-0.02); Immature Granulocytes % (auto) 0.7 %; Lymphocytes # (auto) 1.44 K/uL (1.2-3.4); Lymphocytes % (auto) 7.4 %; Mean Corpuscular Hemoglobin 21.2 pg (25-34); Mean Corpuscular Hgb Conc 29.4 g/dL (32-36); Mean Platelet Volume 9.5 fL (7.4-10.4); Monocytes # (auto) 0.98 K/uL (0.11-0.59); Neutrophils # (auto) 16.83 K/uL (1.4-6.5); Neutrophils % (auto) 86.5 %; Nucleated RBC # (auto) 0.04 K/uL (0-0); Nucleated RBC % (auto) 0.2 %; Platelet Count 456 K/uL (130-400); RDW Coefficient of Variation 18.7 % (11.5-14.5); RDW Standard Deviation 48.5 fL (36.4-46.3); Red Blood Count 4.86 M/uL (4.7-6.1); White Blood Count 19.45 K/uL (4.8-10.8)
--- NOTE | 2019-09-23 17:46 | XRay Report ---
XR chest 1V portable HISTORY: Atypical Chest Pain COMPARISON: Chest 08/24/2019. FINDINGS: No focal lung consolidations to suggest pneumonia. Prominence of interstitial markings is l ikely due to the patient's body habitus. The heart remains mildly enlarged. No pleural effusions. No pneumothorax. IMPRESSION: No significant change compared to the prior study. No acute process. ACT 112: Negative or not required by law. Electronically signed by: Vidal Keller M.D. 09/23/2019 5:44 PM
[2019-09-23 17:51] LABS: Alanine Aminotransferase 21 U/L (12-78); Albumin Level 2.9 gm/dl (3.4-5.0); Aspartate Aminotransferase 10 U/L (15-37); BUN Creatinine Ratio 15.9 (10-20); Blood Urea Nitrogen 17 mg/dl (7-18); Calcium 9.5 mg/dl (8.5-10.1); Carbon Dioxide 34 mmol/L (21-32); Chloride 97 mmol/L (98-107); Creatinine Clr Calc Pharmacy 151.4 ml/min; Est GFR (African American) 91.9; Est GFR (Non-African American) 79.3; Glucose 187 mg/dl (70-99); Lipase 67 U/L (73-393); Potassium 3.4 mmol/L (3.5-5.1); Sodium 134 mmol/L (136-145)
[2019-09-23] MEDS ORDERED: ONDANSETRON INJ 2 MG/ML 2 ML VIAL IV STA (17:53)
[2019-09-23] MEDS ORDERED: MoRPHine SULFATE 4 MG/ML 1 ML CARP\\VIAL IV STA (17:53)
[2019-09-23 17:55] LABS: INR 4.9 (0.9-1.1); Prothrombin Time 44.6 Seconds (9.0-12.0)
[2019-09-23 17:56] LABS: Albumin Globulin Ratio 0.6 (0.9-2); Alkaline Phosphatase 128 U/L (45-117); Bilirubin,Total 0.3 mg/dl (0.2-1); Globulin 4.9 gm/dl (2.5-4.0); NT Pro B Type Natriuretic Pept 501 pg/ml (0-450); Total Protein 7.8 gm/dl (6.4-8.2); Troponin I < 0.015 ng/ml (0-0.045)
[2019-09-23 18:00] LABS: Polychromasia 1+; Spherocytes Occasional; Stomatocytes 1+
[2019-09-23 18:01] LABS: Partial Thromboplastin Time 54.8 Seconds (21.0-31.0)
[2019-09-23] MEDS ORDERED: POTASSIUM CHLORIDE 20 MEQ TABCR PO STA (19:44)
[2019-09-23] MEDS: MAGNESIUM SULFATE / D5W 1 GM/100 ML BAG IV SCH (19:52)
[2019-09-23 20:15] LABS: Magnesium 2.1 mg/dl (1.8-2.4)
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
[2019-09-23] MEDS ORDERED: DOXYCYCLINE HYCLATE 100 MG CAP PO STA (20:22)
[2019-09-23 20:31] LABS: HCO3 ABG 34 mmol/L (19-24); Oxygen Saturation ABG 93.8 % (90-95); PCO2 ABG 49 mmHg (35-46); PO2 ABG 71 mm/Hg (80-95); pH ABG 7.46 (7.35-7.45)
[2019-09-23 20:31] LABS: Influenza A virus by PCR Neg for Influ A (Neg); Influenza B virus by PCR Neg for Influ B (Neg)
[2019-09-23 20:32] LABS: Allen Test POS (Pos)
[2019-09-23] MEDS ORDERED: OPTIRAY 320 125ml IV PRN (20:34)
--- NOTE | 2019-09-23 21:36 | CT Scan Report ---
ABDOMEN AND PELVIS CT WITH IV CONTRAST CT DOSE: 2119.24 mGy.cm HISTORY: Generalized abdominal pain. TECHNIQUE: Multiaxial CT images of the abdomen and pelvis were performed following the use of intrave nous contrast. A dose lowering technique was utilized adhering to the principles of ALARA. COMPARISON STUDY: Abdomen and pelvis CT 08/01/2019. FINDINGS: Stable linear scarlike density within the right lateral lung base. No pneumoperitoneum. No pneumatosis. 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 Small fat-containing umbilical hernia. The gallbladder is contracted. Hepatic steatosis. The spleen, adrenal glands, pancreas, and left kidney are unremarkable. There is a 3 mm stone within the right kidney, unchanged. No ureteral s tones. No hydronephrosis. No retroperitoneal lymphadenopathy. The bladder is decompressed by a Lloyd catheter. No bowel wall thickening or obstruction. Moderate well-formed stool within the colon. The a ppendix is surgically absent. IMPRESSION: 1. No bowel wall thickening or obstruction. 2. Moderate well-formed stool within the colon. 3. The bladder is decompressed by a Lloyd catheter. 4. Hepatic steatosis. 5. Right-sided nephrolithiasis. No hydronephrosis. ACT 112: Negative or not required by law. Electronically signed by: Vidal Keller M.D. 09/23/2019 9:35 PM
[2019-09-23] MEDS ORDERED: GLUCAGON FOR INJ 1 MG VIAL SQ PRN (21:43)
[2019-09-23] MEDS ORDERED: GLUCOSE 40% GEL 15 GM TUBE PO PRN (21:43)
[2019-09-23] MEDS ORDERED: GLUCOSE 10 TABS/TUBE PO PRN (21:43)
[2019-09-23] MEDS ORDERED: INSULIN GLARGINE SOLOSTAR 100 UNITS/ML 3 ML PEN SC STA (21:43)
[2019-09-23] MEDS ORDERED: DEXTROSE 50% 50 ML SYRINGE IV PRN (21:43)
[2019-09-23] MEDS ORDERED: SOD PHOSPHATE/SOD BIPHOSPHATE ENEMA 132 ML BTL PR PRN (21:43)
[2019-09-23] MEDS ORDERED: CARBOHYDRATES FOR HYPOGLYCEMIA PO PRN (21:43)
[2019-09-23] MEDS ORDERED: LACTULOSE SYRUP 30 GM/45 ML UDP PO STA (22:01)
[2019-09-23] MEDS: OXYCODONE HCL IR 5 MG TAB (IMMEDIATE RELEASE) PO PRN (22:33)
[2019-09-23] MEDS: GABAPENTIN 300 MG CAP PO SCH (22:35)
[2019-09-23] MEDS: FUROSEMIDE 80 MG TAB PO SCH (22:35)
[2019-09-23] MEDS: POTASSIUM CHLORIDE 20 MEQ TABCR PO SCH (22:35)
[2019-09-23] MEDS: DOCUSATE SODIUM/SENNA 50/8.6MG TAB PO SCH (22:36)
[2019-09-23] MEDS: METOPROLOL SUCC 50MG EXT REL TAB PO SCH (22:36)
[2019-09-23] MEDS: CYCLOBENZAPRINE HCL 10 MG TAB PO SCH (22:37)
[2019-09-24] MEDS: NICOTINE 21 MG/24 HR TDSY TD SCH ×2 (00:13→20:21)
[2019-09-24] MEDS: MAGNESIUM SULFATE / D5W 1 GM/100 ML BAG IV SCH (00:14)
[2019-09-24] MEDS: INSULIN ASPART 100 UNITS/ML 3 ML PEN SC SCH ×5 (00:16→20:17)
[2019-09-24] MEDS: LEVALBUTEROL 1.25MG/0.5ML NEB INH SCH ×4 (00:29→20:18)
[2019-09-24] MEDS: IPRATROPIUM BROMIDE NEB SOLN 0.02% 2.5 ML VIAL INH SCH ×4 (00:29→20:17)
[2019-09-24] MEDS ORDERED: XOPENEX/ATROVENT 1.25mg/0.5MG NEB COMBO NEB SCH (01:00)
[2019-09-24] MEDS: LORazepam 1 MG TAB PO PRN ×3 (01:04→20:29)
[2019-09-24] MEDS: OXYCODONE HCL IR 5 MG TAB (IMMEDIATE RELEASE) PO PRN ×4 (04:47→22:31)
[2019-09-24 07:19] LABS: Basophils # (auto) 0.02 K/uL (0-0.2); Basophils % (auto) 0.1 %; Hematocrit (blood only) 33.7 % (42-52); Hemoglobin 10.2 g/dL (14.0-18.0); Immature Granulocytes # (auto) 0.14 K/uL (0.00-0.02); Immature Granulocytes % (auto) 0.7 %; Lymphocytes # (auto) 1.85 K/uL (1.2-3.4); Lymphocytes % (auto) 9.7 %; Mean Corpuscular Hemoglobin 21.8 pg (25-34); Mean Corpuscular Hgb Conc 30.3 g/dL (32-36); Mean Corpuscular Volume 72.2 fL (80-100); Mean Platelet Volume 9.5 fL (7.4-10.4); Monocytes # (auto) 0.74 K/uL (0.11-0.59); Monocytes % (auto) 3.9 %; Neutrophils # (auto) 16.38 K/uL (1.4-6.5); Neutrophils % (auto) 85.6 %; Platelet Count 439 K/uL (130-400); RDW Coefficient of Variation 19.1 % (11.5-14.5); RDW Standard Deviation 49.9 fL (36.4-46.3); Red Blood Count 4.67 M/uL (4.7-6.1); White Blood Count 19.13 K/uL (4.8-10.8)
[2019-09-24 07:36] LABS: BUN Creatinine Ratio 15.6 (10-20); Calcium 9.6 mg/dl (8.5-10.1); Creatinine Clr Calc Pharmacy 114.4 ml/min; Est GFR (African American) 66.7; Est GFR (Non-African American) 57.6; Potassium 3.8 mmol/L (3.5-5.1)
[2019-09-24 07:37] LABS: Prothrombin Time 86.4 Seconds (9.0-12.0)
[2019-09-24 07:40] LABS: INR 9.9 (0.9-1.1)
[2019-09-24] MEDS ORDERED: PHYTONADIONE 5 MG TAB PO STA (07:45)
[2019-09-24 07:47] LABS: Anisocytosis Present; Polychromasia 1+; Spherocytes 1+
[2019-09-24] MEDS: TAMSULOSIN HCL 0.4 MG CAP PO SCH (08:05)
[2019-09-24] MEDS: ASPIRIN 81 MG ECTAB PO SCH (08:06)
[2019-09-24] MEDS: LACTOBACILLUS ACIDOPHILUS (FLORANEX) TAB PO SCH ×2 (08:06→20:19)
[2019-09-24] MEDS: predniSONE 20 MG TAB PO SCH (08:06)
[2019-09-24] MEDS: PANTOprazole 40 MG TAB PO SCH (08:06)
[2019-09-24] MEDS: SPIRONOLACTONE 25 MG TAB PO SCH (08:07)
[2019-09-24] MEDS: FINASTERIDE 5 MG TAB PO SCH (08:07)
[2019-09-24] MEDS: DULOXETINE HCL 60 MG CAP PO SCH (08:07)
[2019-09-24] MEDS: METOPROLOL SUCC 50MG EXT REL TAB PO SCH ×2 (08:08→20:22)
[2019-09-24] MEDS: FUROSEMIDE 80 MG TAB PO SCH ×3 (08:08→20:20)
[2019-09-24] MEDS: POTASSIUM CHLORIDE 20 MEQ TABCR PO SCH ×2 (08:08→20:20)
[2019-09-24] MEDS: INSULIN GLARGINE SOLOSTAR 100 UNITS/ML 3 ML PEN SC SCH ×2 (08:09→20:18)
[2019-09-24] MEDS: GABAPENTIN 300 MG CAP PO SCH ×3 (08:09→20:20)
[2019-09-24] MEDS: DOCUSATE SODIUM/SENNA 50/8.6MG TAB PO SCH ×2 (08:09→20:21)
[2019-09-24] MEDS: CYCLOBENZAPRINE HCL 10 MG TAB PO SCH ×2 (08:12→20:19)
[2019-09-24] MEDS: ISOSORBIDE MONO EXTENDED REL 30 MG TABCR PO SCH (08:13)
[2019-09-24] MEDS: DOXYCYCLINE HYCLATE 100 MG CAP PO SCH ×2 (08:14→20:23)
--- NOTE | 2019-09-24 13:03 | Electrocardiogram Report ---
Test Reason : Blood Pressure : / mmHG Vent. Rate : 088 BPM Atrial Rate : 088 BPM P-R Int : 144 ms QRS Dur : 094 ms QT Int : 354 ms P-R-T Axes : 049 048 060 degrees QTc Int : 428 ms Normal sinus rhythm Nonspecific ST and T wave abnormality Abnormal ECG When compared with ECG of 19-AUG-2019 09:47, ST no longer elevated in Inferior leads Nonspecific T wave abnormality, worse in Inferior leads Nonspecific T wave abnormality now evident in Anterior leads Confirmed by Stanton Porter ([id number]) on 09/24/2019 1:02:39 PM Referred By: REFERRED SELF Confirmed By:Stanton Porter
--- NOTE | 2019-09-24 13:11 | Electrocardiogram Report ---
Test Reason : Blood Pressure : / mmHG Vent. Rate : 079 BPM Atrial Rate : 079 BPM P-R Int : 160 ms QRS Dur : 092 ms QT Int : 372 ms P-R-T Axes : 079 064 060 degrees QTc Int : 426 ms Normal sinus rhythm Nonspecific ST abnormality Abnormal ECG When compared with ECG of 23-SEP-2019 16:35, (unconfirmed) Nonspecific T wave abnormality no longer evident in Inferior leads Nonspecific T wave abnormality, improved in Anterior leads Confirmed by Stanton Porter ([id number]) on 09/24/2019 1:10:35 PM Referred By: REFERRED SELF Confirmed By:Stanton Porter
[2019-09-24] MEDS: POLYETHYLENE (MIRALAX) 17 GM PACK PO SCH (19:17)
[2019-09-24] MEDS: BUDESONIDE/FORMOTEROL FUMARATE 160/4.5 60 PUFFS/INHALER INH SCH (20:22)
[2019-09-25] MEDS: LEVALBUTEROL 1.25MG/0.5ML NEB INH SCH ×4 (00:32→19:27)
[2019-09-25] MEDS: IPRATROPIUM BROMIDE NEB SOLN 0.02% 2.5 ML VIAL INH SCH ×4 (00:32→19:27)
[2019-09-25] MEDS: OXYCODONE HCL IR 5 MG TAB (IMMEDIATE RELEASE) PO PRN ×3 (04:36→21:37)
[2019-09-25 07:35] LABS: Hematocrit (blood only) 35.2 % (42-52); Hemoglobin 10.4 g/dL (14.0-18.0); Mean Corpuscular Hemoglobin 21.6 pg (25-34); Mean Corpuscular Hgb Conc 29.5 g/dL (32-36); Mean Platelet Volume 9.5 fL (7.4-10.4); Nucleated RBC # (auto) 0.02 K/uL (0-0); Nucleated RBC % (auto) 0.1 %; Platelet Count 408 K/uL (130-400); RDW Standard Deviation 50.2 fL (36.4-46.3); Red Blood Count 4.82 M/uL (4.7-6.1); White Blood Count 15.34 K/uL (4.8-10.8)
[2019-09-25 08:04] LABS: BUN Creatinine Ratio 23.7 (10-20); Calcium 9.4 mg/dl (8.5-10.1); Creatinine Clr Calc Pharmacy 131.6 ml/min; Est GFR (African American) 79.4; Est GFR (Non-African American) 68.5; Magnesium 2.1 mg/dl (1.8-2.4); Potassium 3.4 mmol/L (3.5-5.1)
[2019-09-25] MEDS: ASPIRIN 81 MG ECTAB PO SCH (09:19)
[2019-09-25] MEDS: TAMSULOSIN HCL 0.4 MG CAP PO SCH (09:19)
[2019-09-25] MEDS: SPIRONOLACTONE 25 MG TAB PO SCH (09:20)
[2019-09-25] MEDS: PANTOprazole 40 MG TAB PO SCH (09:20)
[2019-09-25] MEDS: FINASTERIDE 5 MG TAB PO SCH (09:20)
[2019-09-25] MEDS: DOXYCYCLINE HYCLATE 100 MG CAP PO SCH ×2 (09:21→21:25)
[2019-09-25] MEDS: GABAPENTIN 300 MG CAP PO SCH ×3 (09:21→21:26)
[2019-09-25] MEDS: ISOSORBIDE MONO EXTENDED REL 30 MG TABCR PO SCH (09:21)
[2019-09-25] MEDS: DOCUSATE SODIUM/SENNA 50/8.6MG TAB PO SCH ×2 (09:22→21:21)
[2019-09-25] MEDS: LACTOBACILLUS ACIDOPHILUS (FLORANEX) TAB PO SCH ×2 (09:22→21:18)
[2019-09-25] MEDS: FUROSEMIDE 80 MG TAB PO SCH ×3 (09:22→21:28)
[2019-09-25] MEDS: POTASSIUM CHLORIDE 20 MEQ TABCR PO SCH ×2 (09:22→21:19)
[2019-09-25] MEDS: predniSONE 20 MG TAB PO SCH (09:23)
[2019-09-25] MEDS: DULOXETINE HCL 60 MG CAP PO SCH (09:23)
[2019-09-25] MEDS: METOPROLOL SUCC 50MG EXT REL TAB PO SCH ×2 (09:23→21:28)
[2019-09-25] MEDS: CYCLOBENZAPRINE HCL 10 MG TAB PO SCH ×2 (09:23→21:18)
[2019-09-25] MEDS: INSULIN GLARGINE SOLOSTAR 100 UNITS/ML 3 ML PEN SC SCH ×2 (09:24→21:19)
[2019-09-25] MEDS: INSULIN ASPART 100 UNITS/ML 3 ML PEN SC SCH ×5 (09:26→21:23)
[2019-09-25] MEDS: BUDESONIDE/FORMOTEROL FUMARATE 160/4.5 60 PUFFS/INHALER INH SCH ×2 (09:27→21:23)
[2019-09-25] MEDS: POLYETHYLENE (MIRALAX) 17 GM PACK PO SCH (09:29)
[2019-09-25] MEDS: LORazepam 1 MG TAB PO PRN ×2 (09:37→17:25)
--- NOTE | 2019-09-25 10:43 | Hospitalist Progress Note ---
Date of Service September 24, 2019 Assessment & Plan (1) Acute hypoxemic respiratory failure: Reported increased shortness of breath, even with small exertion, air hunger, RR 28 on admission Secondary to COPD exacerbation/complicated bronchitis History steroid-dependent disease Ongoing tobacco abuse no overt sepsis for now Medical telemetry Supplemental O2, currently using 2 L/min, appears comfortable and able to speak in full sentences Doxycycline, nebs, prednisone 20 mg daily for 4 days then titrate down to usual daily dose Pulmonary consult if without improvement Hx chronic diastolic heart failure (EF 60 to 65%, TTE 2019), mild signs of overload ? Home diuretic non-compliance for possible secondary gain (hx recurrent ER visits/hospital readmissions due to noncompliance, hx drug- seeking behavior as per records) Continue home diuretic Rx -Monitor I's and O's, and daily standing weights -Low-salt diet and fluid restriction diet -Replace and monitor electrolytes as needed Hypertension, stable Recurrent PE on Coumadin, INR supratherapeutic DM 2 -suboptimal control as of recent hemoglobin A1c of July 2019 -He was discharged from here on insulin, states that his primary care provider started him on different medication, which he cannot afford -He says that he has a diabetic supplies and insulin at home, which I prescribed for him at the last admission, however it is unclear if he is actually using it -Basal insulin, ISS BG goal 239250, carb count coverage Chronic anemia, hemoglobin at baseline Hypokalemia secondary to diuretic Rx Chronic back pain -During last admission, there was a major interdisciplinary meeting, regarding his chronic opioid use, and history of drug-seeking behavior -At that time it was decided that patient can use oxycodone, up to 80 mg a day, 20 mg every about 6 hours -Patient says that he still has pain, and asks about pain medications, he also appears very comfortable and in no acute distress -Judicious narcotic administration given reported respiratory distress, and history of drug-seeking behavior Ongoing tobacco abuse -During last admission, I counseled him on tobacco cessation, provided him with 1 800 quit now line -Patient says that he still continues to smoke, 1 pack a day, and did not call the number above - Continue nicotine patch Ambulatory dysfunction - PT/OT eval DVT prophylaxis. Coumadin INR goal between 2 and 3 Full code Subjective Patient sitting up in bed, on supplemental oxygen, says that he has been very short of breath, even with small exertion and that is why he decided to come to the hospital. He feels very anxious, and agitated because the nursing staff keeps his the door open. Currently denies any abdominal pain, nausea or vomiting. Complains of shortness of breath, says that he gained 8 pounds. He also says that everybody in his household has been sick recently with some viral upper respiratory infection. Also says that he would like to go to inpatient rehab, says that his cannot take care of him anymore. Review of Systems Review of Systems: All systems reviewed & are unremarkable except as noted in HPI & below Constitutional: + fatigue and + weakness; no fever and no chills Respiratory: + dyspnea; no cough Cardiovascular: + dyspnea on exertion and + edema; no palpitations Gastrointestinal: + abdominal pain (mostly at R upper quadrant) Physical Exam Physical Exam: GENERAL: Morbidly obese male sitting up in the bed, on supplemental oxygen, in no acute respiratory distress HEENT: Normocephalic, atraumatic, EOMI, PERRL, moist mucous membranes NECK : Supple, short neck, no tenderness CHEST : Decreased breath sounds , diffuse expiratory wheezes, no tenderness to palp. HEART :RRR , no obvious murmurs ABDOMEN: Positive bowel sounds, soft, obese,mild right-sided abdominal tenderness, no guarding EXTREMITIES : Minimal LE swelling, chronic LE tenderness, moves all 4 extremi ties spontaneously SKIN: warm, dry, no obvious rashes or lesions noted NEUROLOGIC : Alert and oriented x3, no facial asymmetry, speech fluent, moves all 4 extremities spontaneously, appears anxious and teary when talking about nursing staff
--- NOTE | 2019-09-25 10:58 | Hospitalist Progress Note ---
Date of Service September 25, 2019 Assessment & Plan (1) Acute hypoxemic respiratory failure: Reported increased shortness of breath, even with small exertion, air hunger, RR 28 on admission Secondary to COPD exacerbation/complicated bronchitis History steroid-dependent disease Ongoing tobacco abuse no overt sepsis for now Medical telemetry Supplemental O2, currently using 2-3 L/min, appears comfortable and able to speak in full sentences Doxycycline, nebs, prednisone 20 mg daily for 4 days - will swiych to IV solumedrol as pt has some wheezes on phys. exam, then plan to titrate down to usual daily dose Pulmonary consult if without improvement Hx chronic diastolic heart failure (EF 60 to 65%, TTE 2019), mild signs of overload ? Home diuretic non-compliance for possible secondary gain (hx recurrent ER visits/hospital readmissions due to noncompliance, hx drug- seeking behavior as per records) Continue home diuretic Rx -volume status already much improved w/o any need of IV diuretics -Monitor I's and O's, and daily standing weights -Low-salt diet and fluid restriction diet -Replace and monitor electrolytes as needed MAHAMED - Cr on admission 1.09, and on August 25, 2019, on last discharge creatinine 1.29 (baseline 1.1-1.3) -Cr. 1.42 yesterday (09/24/2019), likely due to diuresis, with restricted fluid intake in the hospital -Now improved to 1.23, back to baseline Hypokalemia -secondary to diuresis -Replete and monitor Hypertension, stable Recurrent PE on Coumadin, INR supratherapeutic on admission - cont. to monitor DM 2 -suboptimal control as of recent hemoglobin A1c of July 2019 -He was discharged from here on insulin, states that his primary care provider started him on different medication, which he cannot afford -He says that he has a diabetic supplies and insulin at home, which I prescribed for him at the last admission, however it is unclear if he is actually using it -Basal insulin, ISS BG goal [id number], carb count coverage Chronic anemia, hemoglobin at baseline Hypokalemia secondary to diuretic Rx Chronic back pain -During last admission, there was a major interdisciplinary meeting, regarding his chronic opioid use, and history of drug-seeking behavior -At that time it was decided that patient can use oxycodone, up to 80 mg a day, 20 mg every about 6 hours -Patient says that he still has pain, and asks about pain medications, he also appears very comfortable and in no acute distress -Judicious narcotic administration given reported respiratory distress, and history of drug-seeking behavior Ongoing tobacco abuse -During last admission, I counseled him on tobacco cessation, provided him with 1 800 quit now line -Patient says that he still continues to smoke, 1 pack a day, and did not call the number above - Continue nicotine patch Ambulatory dysfunction - PT/OT eval DVT prophylaxis. Coumadin INR goal between 2 and 3 Full code Subjective Patient sitting up in bed, on supplemental oxygen, says he feels about the same,doesn't feel much better. Very unhappy about door being open. Also not pleased with diabetic diet and fluid restriction. Currently denies any abdominal pain, nausea or vomiting. Continues to complain of shortness of breath. He is speaking in full long sentences comfortably though. Says his goal is to get into inpatient rehab, as his cannot take care of him anymore. Review of Systems Review of Systems: All systems reviewed & are unremarkable except as noted in HPI & below As per HPI, all 10 systems reviewed, all other ROS negative Constitutional: + fatigue and + weakness; no fever and no chills Respiratory: + dyspnea; no cough Cardiovascular: + dyspnea on exertion and + edema; no palpitations Gastrointestinal: no abdominal pain, no nausea and no vomiting Physical Exam Physical Exam: GENERAL: Morbidly obese male sitting up in the bed, on supplemental oxygen, in no acute respiratory distress HEENT: Normocephalic, atraumatic, EOMI, PERRL, moist mucous membranes NECK : Supple, short neck, no tenderness CHEST : Decreased breath sounds , diffuse expiratory wheezes, no tenderness to palp. HEART :RRR , no obvious murmurs ABDOMEN: Positive bowel sounds, soft, obese,mild right-sided abdominal tenderness, no guarding EXTREMITIES : Minimal LE swelling, chronic LE tenderness, moves all 4 extremities spontaneously SKIN: warm, dry, no obvious rashes or lesions noted NEUROLOGIC : Alert and oriented x3, no facial asymmetry, speech fluent, moves all 4 extremities spontaneously, appears anxious and teary when talking about nursing staff, diet - fluid restriction/salt restriction Results & Data Vital Signs (Past 12 Hours) Vital Signs Temp Pulse Pulse Resp BP Pulse Ox 09/25/19 09:00 71 09/25/19 07:48 36.5 C 70 20 130/78 97 09/25/19 07:08 75 20 97 09/25/19 04:00 36.5 C 72 20 147/79 H 94 09/25/19 02:33 76 09/25/19 00:27 36.7 C 83 20 143/66 H 93 Laboratory Results 09/25/19 09/25/19 09/25/19 Range/Units 07:40 07:02 07:02 WBC 15.34 H (4.8-10.8) K/uL RBC 4.82 (4.7-6.1) M/uL Hgb 10.4 L (14.0-18.0) g/dL Hct 35.2 L (42-52) % MCV 73.0 L (80-100) fL MCH 21.6 L (25-34) pg MCHC 29.5 L (32-36) g/dL RDW Std Deviation 50.2 H (36.4-46.3) fL RDW Coeff of Mgean 19.0 H (11.5-14.5) % Plt Count 408 H (130-400) K/uL MPV 9.5 (7.4-10.4) fL Absolute Nucleated RBC 0.02 H (0-0) K/uL Nucleated RBC % (auto) 0.1 % Sodium 139 (136-145) mmol/L Potassium 3.4 L (3.5-5.1) mmol/L Chloride 98 (98-107) mmol/L Carbon Dioxide 38 H (21-32) mmol/L Anion Gap 3.0 (3-11) BUN 29 H (7-18) mg/dl Creatinine 1.23 (0.6-1.4) mg/dl Est Cr Clr Drug Dosing 131.6 ml/min Est GFR ( Amer) 79.4 Est GFR (Non-Af Amer) 68.5 BUN/Creatinine Ratio 23.7 H (10-20) Glucose 139 H (70-99) mg/dl POC Glucose 144 H (70-99) Calcium 9.4 (8.5-10.1) mg/dl Magnesium 2.1 (1.8-2.4) mg/dl 09/24/19 09/24/19 09/24/19 Range/Units 20:11 16:37 11:36 WBC (4.8-10.8) K/uL RBC (4.7-6.1) M/uL Hgb (14.0-18.0) g/dL Hct (42-52) % MCV (80-100) fL MCH (25-34) pg MCHC (32-36) g/dL RDW Std Deviation (36.4-46.3) fL RDW Coeff of Emgan (11.5-14.5) % Plt Count (130-400) K/uL MPV (7.4-10.4) fL Absolute Nucleated RBC (0-0) K/uL Nucleated RBC % (auto) % Sodium (136-145) mmol/L Potassium (3.5-5.1) mmol/L Chloride (98-107) mmol/L Carbon Dioxide (21-32) mmol/L Anion Gap (3-11) BUN (7-18) mg/dl Creatinine (0.6-1.4) mg/dl Est Cr Clr Drug Dosing ml/min Est GFR ( Amer) Est GFR (Non-Af Amer) BUN/Creatinine Ratio (10-20) Glucose (70-99) mg/dl POC Glucose 210 H 195 H 231 H (70-99) Calcium (8.5-10.1) mg/dl Magnesium (1.8-2.4) mg/dl
[2019-09-25 14:47] LABS: INR 4.5 (0.9-1.1)
[2019-09-25] MEDS ORDERED: methylPREDNISolone 15 MG in SYRINGE 0 ML IV ONE (20:30)
[2019-09-25] MEDS: NICOTINE 21 MG/24 HR TDSY TD SCH (22:20)
[2019-09-26] MEDS: IPRATROPIUM BROMIDE NEB SOLN 0.02% 2.5 ML VIAL INH SCH ×4 (00:09→19:47)
[2019-09-26] MEDS: LEVALBUTEROL 1.25MG/0.5ML NEB INH SCH ×4 (00:09→19:50)
[2019-09-26] MEDS: LORazepam 1 MG TAB PO PRN ×3 (01:22→22:01)
[2019-09-26 02:16] LABS: Basophils # (auto) 0.01 K/uL (0-0.2); Basophils % (auto) 0.1 %; Eosinophils # (auto) 0.02 K/uL (0-0.5); Eosinophils % (auto) 0.1 %; Hematocrit (blood only) 35.1 % (42-52); Hemoglobin 10.4 g/dL (14.0-18.0); Immature Granulocytes # (auto) 0.06 K/uL (0.00-0.02); Immature Granulocytes % (auto) 0.4 %; Lymphocytes # (auto) 1.48 K/uL (1.2-3.4); Lymphocytes % (auto) 9.2 %; Mean Corpuscular Hemoglobin 21.6 pg (25-34); Mean Corpuscular Hgb Conc 29.6 g/dL (32-36); Mean Corpuscular Volume 72.8 fL (80-100); Mean Platelet Volume 9.5 fL (7.4-10.4); Monocytes # (auto) 0.53 K/uL (0.11-0.59); Monocytes % (auto) 3.3 %; Neutrophils # (auto) 13.98 K/uL (1.4-6.5); Neutrophils % (auto) 86.9 %; Platelet Count 419 K/uL (130-400); RDW Coefficient of Variation 19.1 % (11.5-14.5); RDW Standard Deviation 50.1 fL (36.4-46.3); Red Blood Count 4.82 M/uL (4.7-6.1); White Blood Count 16.08 K/uL (4.8-10.8)
[2019-09-26 02:33] LABS: INR 3.5 (0.9-1.1); Prothrombin Time 33.2 Seconds (9.0-12.0)
[2019-09-26 02:37] LABS: Alanine Aminotransferase 23 U/L (12-78); Albumin Level 2.9 gm/dl (3.4-5.0); Aspartate Aminotransferase 7 U/L (15-37); BUN Creatinine Ratio 23.6 (10-20); Blood Urea Nitrogen 31 mg/dl (7-18); Calcium 9.1 mg/dl (8.5-10.1); Carbon Dioxide 35 mmol/L (21-32); Chloride 98 mmol/L (98-107); Creatinine Clr Calc Pharmacy 121.7 ml/min; Est GFR (African American) 72.2; Est GFR (Non-African American) 62.3; Glucose 169 mg/dl (70-99); Lipase 53 U/L (73-393); Magnesium 2.1 mg/dl (1.8-2.4); Potassium 4.1 mmol/L (3.5-5.1); Sodium 137 mmol/L (136-145)
[2019-09-26 02:43] LABS: Albumin Globulin Ratio 0.6 (0.9-2); Alkaline Phosphatase 133 U/L (45-117); Bilirubin,Total 0.5 mg/dl (0.2-1); Globulin 4.8 gm/dl (2.5-4.0); Total Protein 7.7 gm/dl (6.4-8.2); Troponin I < 0.015 ng/ml (0-0.045)
[2019-09-26 03:01] LABS: Anisocytosis Present; Polychromasia 1+; Spherocytes 1+
[2019-09-26] MEDS: PROMETHAZINE HCL 12.5 MG in SODIUM CHLORIDE 0.9% 50 ML IV PRN ×2 (03:12→20:21)
[2019-09-26] MEDS: OXYCODONE HCL IR 5 MG TAB (IMMEDIATE RELEASE) PO PRN ×3 (03:22→17:53)
[2019-09-26] MEDS: INSULIN ASPART 100 UNITS/ML 3 ML PEN SC SCH ×4 (08:39→20:30)
[2019-09-26] MEDS: FINASTERIDE 5 MG TAB PO SCH (08:40)
[2019-09-26] MEDS: INSULIN GLARGINE SOLOSTAR 100 UNITS/ML 3 ML PEN SC SCH ×2 (08:40→20:31)
[2019-09-26] MEDS: methylPREDNISolone 30 MG in SYRINGE 0 ML IV SCH (08:40)
[2019-09-26] MEDS: PANTOprazole 40 MG TAB PO SCH (08:40)
[2019-09-26] MEDS: ISOSORBIDE MONO EXTENDED REL 30 MG TABCR PO SCH (08:41)
[2019-09-26] MEDS: ASPIRIN 81 MG ECTAB PO SCH (08:41)
[2019-09-26] MEDS: BUDESONIDE/FORMOTEROL FUMARATE 160/4.5 60 PUFFS/INHALER INH SCH ×2 (08:41→20:28)
[2019-09-26] MEDS: SPIRONOLACTONE 25 MG TAB PO SCH (08:41)
[2019-09-26] MEDS: CYCLOBENZAPRINE HCL 10 MG TAB PO SCH ×2 (08:41→20:28)
[2019-09-26] MEDS: DULOXETINE HCL 60 MG CAP PO SCH (08:41)
[2019-09-26] MEDS: POTASSIUM CHLORIDE 20 MEQ TABCR PO SCH ×2 (08:41→20:27)
[2019-09-26] MEDS: TAMSULOSIN HCL 0.4 MG CAP PO SCH (08:41)
[2019-09-26] MEDS: POLYETHYLENE (MIRALAX) 17 GM PACK PO SCH (08:41)
[2019-09-26] MEDS: FUROSEMIDE 80 MG TAB PO SCH ×3 (08:42→20:23)
[2019-09-26] MEDS: DOCUSATE SODIUM/SENNA 50/8.6MG TAB PO SCH ×2 (08:42→20:27)
[2019-09-26] MEDS: GABAPENTIN 300 MG CAP PO SCH ×3 (08:42→20:25)
[2019-09-26] MEDS: METOPROLOL SUCC 50MG EXT REL TAB PO SCH ×2 (08:42→20:24)
[2019-09-26] MEDS: DOXYCYCLINE HYCLATE 100 MG CAP PO SCH ×2 (08:42→20:28)
[2019-09-26] MEDS: LACTOBACILLUS ACIDOPHILUS (FLORANEX) TAB PO SCH ×2 (08:42→20:24)
[2019-09-26] MEDS: NICOTINE 21 MG/24 HR TDSY TD SCH (20:26)
[2019-09-26] MEDS: CAPSAICIN CR 0.075% 60 GM TUBE EXT PRN (20:48)
[2019-09-26] MEDS ORDERED: methylPREDNISolone 15 MG in SYRINGE 0 ML IV ONE (23:53)
[2019-09-27] MEDS: LEVALBUTEROL 1.25MG/0.5ML NEB INH SCH ×2 (00:10→07:48)
[2019-09-27] MEDS: IPRATROPIUM BROMIDE NEB SOLN 0.02% 2.5 ML VIAL INH SCH ×2 (00:10→07:47)
[2019-09-27] MEDS ORDERED: NITROGLYCERIN SL 0.4 MG/TAB TAB SL STA (02:13)
[2019-09-27] MEDS: NITROGLYCERIN SL 0.4 MG/TAB TAB SL PRN (02:21)
[2019-09-27 02:45] LABS: Basophils # (auto) 0.02 K/uL (0-0.2); Basophils % (auto) 0.1 %; Eosinophils # (auto) 0.05 K/uL (0-0.5); Eosinophils % (auto) 0.3 %; Hematocrit (blood only) 37.1 % (42-52); Hemoglobin 10.8 g/dL (14.0-18.0); Immature Granulocytes # (auto) 0.09 K/uL (0.00-0.02); Immature Granulocytes % (auto) 0.5 %; Lymphocytes # (auto) 1.84 K/uL (1.2-3.4); Lymphocytes % (auto) 9.3 %; Mean Corpuscular Hemoglobin 21.5 pg (25-34); Mean Corpuscular Hgb Conc 29.1 g/dL (32-36); Mean Corpuscular Volume 73.9 fL (80-100); Mean Platelet Volume 9.5 fL (7.4-10.4); Monocytes % (auto) 6.5 %; Neutrophils # (auto) 16.56 K/uL (1.4-6.5); Neutrophils % (auto) 83.3 %; Platelet Count 440 K/uL (130-400); RDW Coefficient of Variation 19.1 % (11.5-14.5); RDW Standard Deviation 50.9 fL (36.4-46.3); Red Blood Count 5.02 M/uL (4.7-6.1); White Blood Count 19.86 K/uL (4.8-10.8)
[2019-09-27 02:54] LABS: Prothrombin Time 19.8 Seconds (9.0-12.0)
[2019-09-27 03:05] LABS: Alanine Aminotransferase 24 U/L (12-78); Albumin Level 3.1 gm/dl (3.4-5.0); Aspartate Aminotransferase 9 U/L (15-37); BUN Creatinine Ratio 22.6 (10-20); Blood Urea Nitrogen 33 mg/dl (7-18); Calcium 9.2 mg/dl (8.5-10.1); Carbon Dioxide 38 mmol/L (21-32); Chloride 99 mmol/L (98-107); Creatinine Clr Calc Pharmacy 110.1 ml/min; Est GFR (African American) 64.5; Est GFR (Non-African American) 55.7; Glucose 236 mg/dl (70-99); Lipase 82 U/L (73-393); Magnesium 2.1 mg/dl (1.8-2.4); Potassium 3.9 mmol/L (3.5-5.1); Sodium 138 mmol/L (136-145)
[2019-09-27 03:11] LABS: Albumin Globulin Ratio 0.7 (0.9-2); Alkaline Phosphatase 124 U/L (45-117); Bilirubin,Total 0.4 mg/dl (0.2-1); Globulin 4.5 gm/dl (2.5-4.0); Total Protein 7.6 gm/dl (6.4-8.2); Troponin I < 0.015 ng/ml (0-0.045)
[2019-09-27 03:16] LABS: Hypochromasia Present; Ovalocytes 1+
[2019-09-27] MEDS: METOPROLOL SUCC 50MG EXT REL TAB PO SCH ×2 (04:22→20:21)
--- NOTE | 2019-09-27 07:15 | XRay Report ---
XR chest 1V portable CLINICAL HISTORY: 49 years-old Male presenting with cp, sob. TECHNIQUE: Portable upright AP view of the chest was obtained. COMPARISON: 09/23/2019. FINDINGS: Cardiac silhouette enlarged as on prior exam. No focal opacity. No large effusion or pneumothorax. Os seous structures normal. IMPRESSION: 1. Apparent cardiomegaly. This is unchanged. Evaluation limited by body habitus and portable techniq ue. Consider PA and lateral views for better assessment if there are ongoing symptoms. ACT 112: Negative or not required by law. Electronically signed by: Joey Merida M.D. 09/27/2019 7:13 AM
[2019-09-27] MEDS: INSULIN ASPART 100 UNITS/ML 3 ML PEN SC SCH ×4 (08:50→20:17)
[2019-09-27] MEDS: INSULIN GLARGINE SOLOSTAR 100 UNITS/ML 3 ML PEN SC SCH ×2 (08:50→20:14)
[2019-09-27] MEDS: LACTOBACILLUS ACIDOPHILUS (FLORANEX) TAB PO SCH ×2 (08:52→20:12)
[2019-09-27] MEDS: GABAPENTIN 300 MG CAP PO SCH ×3 (08:52→20:17)
[2019-09-27] MEDS: DULOXETINE HCL 60 MG CAP PO SCH (08:52)
[2019-09-27] MEDS: FUROSEMIDE 80 MG TAB PO SCH ×4 (08:53→20:16)
[2019-09-27] MEDS: ASPIRIN 81 MG ECTAB PO SCH (08:53)
[2019-09-27] MEDS: POLYETHYLENE (MIRALAX) 17 GM PACK PO SCH (08:53)
[2019-09-27] MEDS: TAMSULOSIN HCL 0.4 MG CAP PO SCH (08:54)
[2019-09-27] MEDS: ISOSORBIDE MONO EXTENDED REL 30 MG TABCR PO SCH (08:54)
[2019-09-27] MEDS: SPIRONOLACTONE 25 MG TAB PO SCH (08:54)
[2019-09-27] MEDS: FINASTERIDE 5 MG TAB PO SCH (08:54)
[2019-09-27] MEDS: POTASSIUM CHLORIDE 20 MEQ TABCR PO SCH ×2 (08:54→20:14)
[2019-09-27] MEDS: CYCLOBENZAPRINE HCL 10 MG TAB PO SCH ×2 (08:54→20:19)
[2019-09-27] MEDS: PANTOprazole 40 MG TAB PO SCH (08:54)
[2019-09-27] MEDS: DOCUSATE SODIUM/SENNA 50/8.6MG TAB PO SCH ×2 (08:55→20:20)
[2019-09-27] MEDS: BUDESONIDE/FORMOTEROL FUMARATE 160/4.5 60 PUFFS/INHALER INH SCH ×2 (08:55→20:20)
[2019-09-27] MEDS: DOXYCYCLINE HYCLATE 100 MG CAP PO SCH ×2 (08:55→20:21)
[2019-09-27] MEDS: methylPREDNISolone 30 MG in SYRINGE 0 ML IV SCH (09:05)
[2019-09-27] MEDS: OXYCODONE HCL IR 5 MG TAB (IMMEDIATE RELEASE) PO PRN ×4 (09:06→20:48)
--- NOTE | 2019-09-27 10:13 | Electrocardiogram Report ---
Test Reason : Blood Pressure : / mmHG Vent. Rate : 088 BPM Atrial Rate : 088 BPM P-R Int : 150 ms QRS Dur : 102 ms QT Int : 626 ms P-R-T Axes : 028 050 054 degrees QTc Int : 757 ms Normal sinus rhythm Nonspecific ST and T wave abnormality Prolonged QT Abnormal ECG When compared with ECG of 24-SEP-2019 07:39, QT has lengthened Confirmed by Stanton Porter ([id number]) on 09/27/2019 10:12:45 AM Referred By: REFERRED SELF Confirmed By:Stanton Porter
[2019-09-27] MEDS: PROMETHAZINE HCL 12.5 MG in SODIUM CHLORIDE 0.9% 50 ML IV PRN ×2 (10:23→20:28)
[2019-09-27] MEDS: LORazepam 1 MG TAB PO PRN ×2 (10:23→17:51)
[2019-09-27] MEDS ORDERED: IPRATROPIUM BROMIDE/ALBUTEROL respimat INH INH ONE (12:30)
[2019-09-27] MEDS ORDERED: methylPREDNISolone 30 MG in SYRINGE 0 ML IV STA (14:30)
[2019-09-27] MEDS ORDERED: ACETAMINOPHEN 1,000 MG/100 ML VIAL IV SCH (14:45)
[2019-09-27] MEDS: IPRATROPIUM BROMIDE/ALBUTEROL respimat INH INH SCH ×2 (17:06→20:11)
[2019-09-27] MEDS ORDERED: IPRATROPIUM BROMIDE/ALBUTEROL respimat INH INH SCH (18:00)
[2019-09-27] MEDS: NICOTINE 21 MG/24 HR TDSY TD SCH (20:18)
[2019-09-28] MEDS: LORazepam 1 MG TAB PO PRN ×3 (01:52→18:19)
[2019-09-28] MEDS: OXYCODONE HCL IR 5 MG TAB (IMMEDIATE RELEASE) PO PRN ×4 (02:55→21:11)
[2019-09-28] MEDS: PROMETHAZINE HCL 12.5 MG in SODIUM CHLORIDE 0.9% 50 ML IV PRN ×3 (02:55→18:18)
[2019-09-28] MEDS ORDERED: MAGNESIUM SULFATE / D5W 1 GM/100 ML BAG IV ONE (06:44)
[2019-09-28 07:46] LABS: Basophils # (auto) 0.03 K/uL (0-0.2); Basophils % (auto) 0.1 %; Eosinophils # (auto) 0.01 K/uL (0-0.5); Hematocrit (blood only) 36.7 % (42-52); Hemoglobin 10.9 g/dL (14.0-18.0); Immature Granulocytes % (auto) 0.5 %; Lymphocytes # (auto) 3.55 K/uL (1.2-3.4); Lymphocytes % (auto) 16.7 %; Mean Corpuscular Hemoglobin 21.5 pg (25-34); Mean Corpuscular Hgb Conc 29.7 g/dL (32-36); Mean Corpuscular Volume 72.4 fL (80-100); Mean Platelet Volume 9.8 fL (7.4-10.4); Monocytes # (auto) 1.71 K/uL (0.11-0.59); Neutrophils # (auto) 15.88 K/uL (1.4-6.5); Neutrophils % (auto) 74.7 %; Platelet Count 409 K/uL (130-400); RDW Coefficient of Variation 19.3 % (11.5-14.5); RDW Standard Deviation 50.2 fL (36.4-46.3); Red Blood Count 5.07 M/uL (4.7-6.1); White Blood Count 21.28 K/uL (4.8-10.8)
[2019-09-28 08:14] LABS: Hypochromasia Present; Ovalocytes 1+
[2019-09-28 08:17] LABS: Creatinine Clr Calc Pharmacy 132.7 ml/min; Est GFR (Non-African American) 69.9; Magnesium 2.4 mg/dl (1.8-2.4); Potassium 3.5 mmol/L (3.5-5.1)
[2019-09-28] MEDS: DOXYCYCLINE HYCLATE 100 MG CAP PO SCH ×2 (08:24→21:02)
[2019-09-28] MEDS: TAMSULOSIN HCL 0.4 MG CAP PO SCH (08:24)
[2019-09-28] MEDS: PANTOprazole 40 MG TAB PO SCH (08:24)
[2019-09-28] MEDS: SPIRONOLACTONE 25 MG TAB PO SCH (08:24)
[2019-09-28] MEDS: METOPROLOL SUCC 50MG EXT REL TAB PO SCH ×2 (08:24→21:02)
[2019-09-28] MEDS: ASPIRIN 81 MG ECTAB PO SCH (08:24)
[2019-09-28] MEDS: FINASTERIDE 5 MG TAB PO SCH (08:24)
[2019-09-28] MEDS: LACTOBACILLUS ACIDOPHILUS (FLORANEX) TAB PO SCH ×2 (08:25→20:56)
[2019-09-28] MEDS: FUROSEMIDE 80 MG TAB PO SCH ×3 (08:25→20:59)
[2019-09-28] MEDS: GABAPENTIN 300 MG CAP PO SCH ×3 (08:25→20:59)
[2019-09-28] MEDS: DOCUSATE SODIUM/SENNA 50/8.6MG TAB PO SCH ×2 (08:25→21:01)
[2019-09-28] MEDS: ISOSORBIDE MONO EXTENDED REL 30 MG TABCR PO SCH (08:25)
[2019-09-28] MEDS: CYCLOBENZAPRINE HCL 10 MG TAB PO SCH ×2 (08:25→20:56)
[2019-09-28] MEDS: DULOXETINE HCL 60 MG CAP PO SCH (08:26)
[2019-09-28] MEDS: IPRATROPIUM BROMIDE/ALBUTEROL respimat INH INH SCH ×4 (08:26→20:53)
[2019-09-28] MEDS: BUDESONIDE/FORMOTEROL FUMARATE 160/4.5 60 PUFFS/INHALER INH SCH ×2 (08:29→21:01)
[2019-09-28] MEDS: POLYETHYLENE (MIRALAX) 17 GM PACK PO SCH (08:31)
[2019-09-28] MEDS: INSULIN GLARGINE SOLOSTAR 100 UNITS/ML 3 ML PEN SC SCH ×2 (08:31→20:58)
[2019-09-28] MEDS: POTASSIUM CHLORIDE 20 MEQ TABCR PO SCH ×2 (08:31→20:57)
[2019-09-28] MEDS: INSULIN ASPART 100 UNITS/ML 3 ML PEN SC SCH ×4 (08:32→21:00)
[2019-09-28] MEDS: methylPREDNISolone 30 MG in SYRINGE 0 ML IV SCH (08:33)
[2019-09-28] MEDS ORDERED: WARFARIN SOD 10 MG TAB PO ONE (14:30)
[2019-09-28] MEDS: NICOTINE 21 MG/24 HR TDSY TD SCH (21:00)
--- NOTE | 2019-09-28 22:19 | Hospitalist Progress Note ---
Date of Service September 26, 2019 (late entry) Assessment & Plan (1) Acute hypoxemic respiratory failure: Reported increased shortness of breath, even with small exertion, air hunger, RR 28 on admission Secondary to COPD exacerbation/complicated bronchitis History steroid-dependent disease Ongoing tobacco abuse no overt sepsis for now Medical telemetry Supplemental O2, currently using 2-3 L/min, appears comfortable and able to speak in full sentences Doxycycline, nebs, initially on prednisone 20 mg daily, switched to IV solumedrol as pt has some wheezes on phys. exam, then plan to titrate down to usual daily dose Pulmonary consult if without improvement Hx chronic diastolic heart failure (EF 60 to 65%, TTE 2019), mild signs of overload (mild acute on chronic CHF) ? Home diuretic non-compliance for possible secondary gain (hx recurrent ER visits/hospital readmissions due to noncompliance, hx drug- seeking behavior as per records) Continue home diuretic Rx -volume status already much improved w/o any need of IV diuretics, cont. salt and fluid restr. diet -Monitor I's and O's, and daily standing weights -current weight: 201.6 kg (at baseline), on last discharge on 08/25 : 202.8 kg, on current admission: 210 kg -Low-salt diet and fluid restriction diet -Replace and monitor electrolytes as needed MAHAMED - Cr on admission 1.09, and on August 25, 2019, on last discharge creatinine 1.29 (baseline 1.1-1.3) - Cr. 1.42 (09/24/2019), likely due to diuresis, with restricted fluid intake in the hospital - current Cr 1.33 - back to baseline Hypokalemia -secondary to diuresis -Replete and monitor Hypertension, stable Recurrent PE on Coumadin, INR supratherapeutic on admission - INR on 09/24 9.9 - current INR down to 3.5 - cont. to monitor DM 2 -suboptimal control as of recent hemoglobin A1c of July 2019 -He was discharged from here on insulin, states that his primary care provider started him on different medication, which he cannot afford -He says that he has a diabetic supplies and insulin at home, which I prescribed for him at the last admission, however it is unclear if he is actually using it -Basal insulin, ISS BG goal [id number], carb count coverage Chronic anemia, hemoglobin at baseline Hypokalemia secondary to diuretic Rx Chronic back pain -During last admission, there was a major interdisciplinary meeting, regarding his chronic opioid use, and history of drug-seeking behavior -At that time it was decided that patient can use oxycodone, up to 80 mg a day, 20 mg every about 6 hours -Patient says that he still has pain, and asks about pain medications, he also appears very comfortable and in no acute distress - added capsaicin gel for feet and legs as needed, seems to be helping w/ pain in his feet but he also cont. to ask about IV opioids -Judicious narcotic administration given reported respiratory distress, and history of drug-seeking behavior Ongoing tobacco abuse -During last admission, I counseled him on tobacco cessation, provided him with 1 800 quit now line -Patient says that he still continues to smoke, 1 pack a day, and did not call the number above - Continue nicotine patch Ambulatory dysfunction - PT/OT eval DVT prophylaxis. Coumadin INR goal between 2 and 3 Full code Subjective Patient sitting up in bed, on supplemental oxygen, says he feels about the same,doesn't feel much better. Very unhappy about door being open. Also not pleased with diabetic diet and fluid restriction. Reported multiple incidents by nursing staff when pt was rude to nursing staff while they were following the treatment plan, pt feels as nurses are "mean to him". Reports chronic pain in his feet, legs, and back, added capsaicin gel to his pain management. Pt refuses to work with PT, refuses RT treatments as well. Currently denies any abdominal pain, nausea or vomiting. Continues to complain of shortness of breath. He is speaking in full long sentences comfortably though. Says his goal is to get into inpatient rehab, as his cannot take care of him anymore. But he refuses PT evaluation. WEIGHT: 201.6 kg (at baseline) Cr 1.33 (at baseline) INR down to 3.5 (from 9.9) Review of Systems Review of Systems: As per HPI, all 10 systems reviewed, all other ROS negative Constitutional: + fatigue and + weakness; no fever and no chills Respiratory: + dyspnea; no cough Cardiovascular: + dyspnea on exertion and + edema; no palpitations Physical Exam Physical Exam: GENERAL: Morbidly obese male sitting up in the bed, on supplemental oxygen, in no acute respiratory distress HEENT: Normocephalic, atraumatic, EOMI, PERRL, moist mucous membranes NECK : Supple, short neck, no tenderness CHEST : Decreased breath sounds , diffuse expiratory wheezes, no tenderness to palp. HEART :RRR , no obvious murmurs ABDOMEN: Positive bowel sounds, soft, obese,mild right-sided abdominal tenderness, no guarding EXTREMITIES : Minimal LE swelling, chronic LE tenderness, moves all 4 extremities spontaneously SKIN: warm, dry, no obvious rashes or lesions noted NEUROLOGIC : Alert and oriented x3, no facial asymmetry, speech fluent, moves all 4 extremities spontaneously, appears anxious and teary when talking about nursing staff, diet - fluid restriction/salt restriction
--- NOTE | 2019-09-28 22:20 | Hospitalist Progress Note ---
Date of Service September 27, 2019 (late entry) Assessment & Plan (1) Acute hypoxemic respiratory failure: Reported increased shortness of breath, even with small exertion, air hunger, RR 28 on admission Secondary to COPD exacerbation/complicated bronchitis History steroid-dependent disease Ongoing tobacco abuse no overt sepsis for now Medical telemetry Supplemental O2, currently using 1-2 L/min, appears comfortable and able to speak in full sentences Doxycycline, nebs, cont. IV solumedrol for now, plan to switch back to PO and titrate down to usual daily dose Pulmonary consult if without improvement Hx chronic diastolic heart failure (EF 60 to 65%, TTE 2018), mild signs of overload (mild acute on chronic CHF - Resolved) ? Home diuretic non-compliance for possible secondary gain (hx recurrent ER visits/hospital readmissions due to noncompliance, hx drug- seeking behavior as per records) Continue home diuretic Rx -volume status already much improved w/o any need of IV diuretics, cont. salt and fluid restr. diet -Monitor I's and O's, and daily standing weights -weight on last discharge on 08/25 : 202.8 kg, on current admission: 210 kg -Low-salt diet and fluid restriction diet -Replace and monitor electrolytes as needed MAHAMED - Cr on admission 1.09, and on August 25, 2019, on last discharge creatinine 1.29 (baseline 1.1-1.3) - Cr. 1.42 (09/24/2019), likely due to diuresis, with restricted fluid intake in the hospital - current Cr mildly elevated, been at baseline/ normal for the past 2 days - will cont. to monitor- Hypokalemia -secondary to diuresis -Replete and monitor Hypertension, stable Recurrent PE on Coumadin, INR supratherapeutic on admission - INR 9.9 on 09/24 - current INR down to 2.0 - cont. to monitor DM 2 -suboptimal control as of recent hemoglobin A1c of July 2019 -He was discharged from here on insulin, states that his primary care provider started him on different medication, which he cannot afford -He says that he has a diabetic supplies and insulin at home, which I prescribed for him at the last admission, however it is unclear if he is actually using it -Basal insulin, ISS BG goal [id number], carb count coverage Chronic anemia, hemoglobin at baseline Hypokalemia secondary to diuretic Rx Chronic back pain -During last admission, there was a major interdisciplinary meeting, regarding his chronic opioid use, and history of drug-seeking behavior -At that time it was decided that patient can use oxycodone, up to 80 mg a day, 20 mg every about 6 hours -Patient says that he still has pain, and asks about pain medications, he also appears very comfortable and in no acute distress - added capsaicin gel for feet and legs as needed, seems to be helping w/ pain in his feet but he also cont. to ask about IV opioids -Judicious narcotic administration given reported respiratory distress, and history of drug-seeking behavior Ongoing tobacco abuse -During last admission, I counseled him on tobacco cessation, provided him with 1 800 quit now line -Patient says that he still continues to smoke, 1 pack a day, and did not call the number above - Continue nicotine patch Ambulatory dysfunction - PT/OT eval DVT prophylaxis. Coumadin INR goal between 2 and 3 Full code Subjective Patient sitting up in bed, on supplemental oxygen, says he feels about the same,doesn't feel much better. Very unhappy about door being open, diabetic diet and fluid and salt restriction.Reported multiple incidents by nursing staff when pt was rude to nursing staff while they were following the treatment plan, pt feels as nurses are "mean to him". Pt would not upen his mouth for nurses to chcek that he took the medication. Keeps requesting soda drinks (non-diet) and salty snacks. Reports chronic pain in his feet, legs, and back. Pt refuses to work with PT, refuses RT treatments as well. Currently denies any abdominal pain, nausea or vomiting. Continues to complain of shortness of breath. He is speaking in full long sentences comfortably though. Says his goal is to get into inpatient rehab, as his cannot take care of him anymore. But he refuses PT evaluation. Brought in with me Mrs. Drake Hanson - to help sort out pt's multiple complaints about current "Treatment Plan" and nursing staff- following current treatment care plan. Pt wishes to revisit this plan and the meeting is supposed to be held on Wednesday (09/29/2019) INR down to 2.0 (from 9.9) Review of Systems Review of Systems: As per HPI, all 10 systems reviewed, all other ROS negative Constitutional: + fatigue and + weakness; no fever and no chills Respiratory: + dyspnea; no cough Cardiovascular: + dyspnea on exertion and + edema; no palpitations Physical Exam Physical Exam: GENERAL: Morbidly obese male sitting up in the bed, on supplemental oxygen, in no acute respiratory distress HEENT: Normocephalic, atraumatic, EOMI, PERRL, moist mucous membranes NECK : Supple, short neck, no tenderness CHEST : Decreased breath sounds , diffuse expiratory wheezes, no tenderness to palp. HEART :RRR , no obvious murmurs ABDOMEN: Positive bowel sounds, soft, obese,mild right-sided abdominal tenderness, no guarding EXTREMITIES : Minimal LE swelling, chronic LE tenderness, moves all 4 extremities spontaneously SKIN: warm, dry, no obvious rashes or lesions noted NEUROLOGIC : Alert and oriented x3, no facial asymmetry, speech fluent, moves all 4 extremities spontaneously, appears anxious and teary when talking about nursing staff, diet - fluid restriction/salt restriction
--- NOTE | 2019-09-28 22:22 | Hospitalist Progress Note ---
Date of Service September 28, 2019 Assessment & Plan (1) Acute hypoxemic respiratory failure: Reported increased shortness of breath, even with small exertion, air hunger, RR 28 on admission Secondary to COPD exacerbation/complicated bronchitis History steroid-dependent disease Ongoing tobacco abuse no overt sepsis for now Medical telemetry Supplemental O2, currently using 1L/min, appears comfortable and able to speak in full sentences Doxycycline, nebs, cont. IV solumedrol for now, plan to switch back to PO and titrate down to usual daily dose Pulmonary consult if without improvement Hx chronic diastolic heart failure (EF 60 to 65%, TTE 2018), mild signs of overload (mild acute on chronic CHF - Resolved) ? Home diuretic non-compliance for possible secondary gain (hx recurrent ER visits/hospital readmissions due to noncompliance, hx drug- seeking behavior as per records) Continue home diuretic Rx -volume status already much improved w/o any need of IV diuretics, cont. salt and fluid restr. diet -Monitor I's and O's, and daily standing weights -weight on last discharge on 08/25 : 202.8 kg, on current admission: 210 kg, current: 201.3kg -Low-salt diet and fluid restriction diet -Replace and monitor electrolytes as needed MAHAMED - Resolved - Cr on admission 1.09, and on August 25, 2019, on last discharge creatinine 1.29 (baseline 1.1-1.3) - Cr. 1.42 (09/24/2019), likely due to diuresis, with restricted fluid intake in the hospital - current Cr 1.21 - cont. to monitor, avoid nephrotoxic agents Hypokalemia -secondary to diuresis -Replete and monitor Hypertension, stable Recurrent PE on Coumadin, INR supratherapeutic on admission - INR 9.9 on 09/24 - current INR down to 2.0 - cont. to monitor DM 2 -suboptimal control as of recent hemoglobin A1c of July 2019 -He was discharged from here on insulin, states that his primary care provider started him on different medication, which he cannot afford -He says that he has a diabetic supplies and insulin at home, which I prescribed for him at the last admission, however it is unclear if he is actually using it -Basal insulin, ISS BG goal [id number], carb count coverage Chronic anemia, hemoglobin at baseline Chronic back pain -During last admission, there was a major interdisciplinary meeting, regarding his chronic opioid use, and history of drug-seeking behavior -At that time it was decided that patient can use oxycodone, up to 80 mg a day, 20 mg every about 6 hours -Patient says that he still has pain, and asks about pain medications, he also appears very comfortable and in no acute distress - added capsaicin gel for feet and legs as needed, seems to be helping w/ pain in his feet but he also cont. to ask about IV opioids -Judicious narcotic administration given reported respiratory distress, and history of drug-seeking behavior Ongoing tobacco abuse -During last admission, I counseled him on tobacco cessation, provided him with 1 800 quit now line -Patient says that he still continues to smoke, 1 pack a day, and did not call the number above -Continue nicotine patch Ambulatory dysfunction - PT/OT eval DVT prophylaxis. Coumadin INR goal between 2 and 3 Full code Subjective Patient sitting up in bed, on supplemental oxygen, says he feels about the same. Very unhappy about door being open, diabetic diet and fluid and salt restriction.Reported multiple incidents by nursing staff when pt was rude to nursing staff while they were following the treatment plan, pt feels as nurses are "mean to him". Pt would not open his mouth for nurses to check that he took the medication. Keeps requesting soda drinks (non-diet) and salty snacks. Reports chronic pain in his feet, legs, and back. Keeps requesting IV opioids. Currently denies any abdominal pain, nausea or vomiting. Brought in with me Mrs. Drake Hanson again - to help sort out pt's multiple complaints about current "Treatment Plan" and nursing staff- following current treatment care plan. Pt wishes to revisit this plan and the meeting is supposed to be held tomorrow, on Wednesday (09/29/2019) Review of Systems Review of Systems: As per HPI, all 10 systems reviewed, all other ROS negative Constitutional: + fatigue and + weakness; no fever and no chills Respiratory: + dyspnea; no cough Cardiovascular: + dyspnea on exertion and + edema; no palpitations Physical Exam Physical Exam: GENERAL: Morbidly obese male sitting up in the bed, on supplemental oxygen, in no acute respiratory distress HEENT: Normocephalic, atraumatic, EOMI, PERRL, moist mucous membranes NECK : Supple, short neck, no tenderness CHEST : Decreased breath sounds , diffuse expiratory wheezes, no tenderness to palp. HEART :RRR , no obvious murmurs ABDOMEN: Positive bowel sounds, soft, obese,mild right-sided abdominal tend erness, no guarding EXTREMITIES : Minimal LE swelling, chronic LE tenderness, moves all 4 extremities spontaneously SKIN: warm, dry, no obvious rashes or lesions noted : Lloyd catheter placed, draining clear yellow urine NEUROLOGIC : Alert and oriented x3, no facial asymmetry, speech fluent, moves all 4 extremities spontaneously, appears anxious and teary when talking about nursing staff, diet - fluid restriction/salt restriction Results & Data Vital Signs (Past 12 Hours) Vital Signs Temp Pulse Pulse Resp BP Pulse Ox 09/28/19 19:57 36.5 C 93 H 18 137/75 98 09/28/19 16:17 85 09/28/19 15:49 98 09/28/19 15:28 36.5 C 86 18 147/74 H 92 Laboratory Results 09/28/19 09/28/19 09/28/19 Range/Units 19:47 16:28 07:20 WBC (4.8-10.8) K/uL RBC (4.7-6.1) M/uL Hgb (14.0-18.0) g/dL Hct (42-52) % MCV (80-100) fL MCH (25-34) pg MCHC (32-36) g/dL RDW Std Deviation (36.4-46.3) fL RDW Coeff of Megan (11.5-14.5) % Plt Count (130-400) K/uL MPV (7.4-10.4) fL Immature Gran % (Auto) % Neut % (Auto) % Lymph % (Auto) % Emery % (Auto) % Eos % (Auto) % Baso % (Auto) % Immature Gran # (Auto) (0.00-0.02) K/uL Neut # (Auto) (1.4-6.5) K/uL Lymph # (Auto) (1.2-3.4) K/uL Emery # (Auto) (0.11-0.59) K/uL Eos # (Auto) (0-0.5) K/uL Baso # (Auto) (0-0.2) K/uL Hypochromasia Ovalocytes Sodium (136-145) mmol/L Potassium (3.5-5.1) mmol/L Chloride (98-107) mmol/L Carbon Dioxide (21-32) mmol/L Anion Gap (3-11) BUN (7-18) mg/dl Creatinine (0.6-1.4) mg/dl Est Cr Clr Drug Dosing ml/min Est GFR ( Amer) Est GFR (Non-Af Amer) BUN/Creatinine Ratio (10-20) Glucose (70-99) mg/dl POC Glucose 259 H 210 H 147 H (70-99) Calcium (8.5-10.1) mg/dl Magnesium (1.8-2.4) mg/dl 09/28/19 09/28/19 Range/Units 07:10 07:10 WBC 21.28 H (4.8-10.8) K/uL RBC 5.07 (4.7-6.1) M/uL Hgb 10.9 L (14.0-18.0) g/dL Hct 36.7 L (42-52) % MCV 72.4 L (80-100) fL MCH 21.5 L (25-34) pg MCHC 29.7 L (32-36) g/dL RDW Std Deviation 50.2 H (36.4-46.3) fL RDW Coeff of Megan 19.3 H (11.5-14.5) % Plt Count 409 H (130-400) K/uL MPV 9.8 (7.4-10.4) fL Immature Gran % (Auto) 0.5 % Neut % (Auto) 74.7 % Lymph % (Auto) 16.7 % Emery % (Auto) 8.0 % Eos % (Auto) 0.0 % Baso % (Auto) 0.1 % Immature Gran # (Auto) 0.10 H (0.00-0.02) K/uL Neut # (Auto) 15.88 H (1.4-6.5) K/uL Lymph # (Auto) 3.55 H (1.2-3.4) K/uL Emery # (Auto) 1.71 H (0.11-0.59) K/uL Eos # (Auto) 0.01 (0-0.5) K/uL Baso # (Auto) 0.03 (0-0.2) K/uL Hypochromasia Present Ovalocytes 1+ Sodium 141 (136-145) mmol/L Potassium 3.5 (3.5-5.1) mmol/L Chloride 101 (98-107) mmol/L Carbon Dioxide 36 H (21-32) mmol/L Anion Gap 4.0 (3-11) BUN 28 H (7-18) mg/dl Creatinine 1.21 (0.6-1.4) mg/dl Est Cr Clr Drug Dosing 132.7 ml/min Est GFR ( Amer) 81.0 Est GFR (Non-Af Amer) 69.9 BUN/Creatinine Ratio 23.0 H (10-20) Glucose 132 H (70-99) mg/dl POC Glucose (70-99) Calcium 10.0 (8.5-10.1) mg/dl Magnesium 2.4 (1.8-2.4) mg/dl Medications Administered Current Inpatient Medications Albuterol (Combivent Respimat) 1 puffs INH QID [facility] Stop: 10/27/19 16:59 Last Admin: 09/28/19 20:53 Dose: 1 puffs Documented by: Aspirin (Ecotrin Ectab) 81 mg PO QAM [facility] Stop: 10/24/19 08:59 Last Admin: 09/28/19 08:24 Dose: 81 mg Documented by: Budesonide/Formoterol Fumarate (Symbicort 160mcg/4.5mcg) 2 puffs INH BID [facility] Stop: 10/24/19 20:59 Last Admin: 09/28/19 21:01 Dose: 2 puffs Documented by: Capsaicin (Zostrix) 1 appln EXT TID PRN PRN Reason: Pain Stop: 10/26/19 14:42 Last Admin: 09/26/19 20:48 Dose: 1 appln Documented by: Cyclobenzaprine HCl (Flexeril) 10 mg PO BID [facility] Stop: 10/23/19 21:42 Last Admin: 09/28/19 20:56 Dose: 10 mg Documented by: Dextrose (Dextrose 50%) 25 - 50 ml IV UD PRN; Protocol PRN Reason: Hypoglycemia Protocol Stop: 10/23/19 21:42 Doxycycline Hyclate (Vibramycin) 100 mg PO BID [facility] Stop: 01/12/20 08:59 Last Admin: 09/28/19 21:02 Dose: 100 mg Documented by: Duloxetine HCl (Cymbalta) 60 mg PO DAILY [facility] Stop: 10/24/19 08:59 Last Admin: 09/28/19 08:26 Dose: 60 mg Documented by: Finasteride (Proscar) 5 mg PO QAM [facility] Stop: 10/24/19 08:59 Last Admin: 09/28/19 08:24 Dose: 5 mg Documented by: Furosemide (Lasix) 80 mg PO TID [facility] Stop: 10/23/19 21:42 Last Admin: 09/28/19 20:59 Dose: 80 mg Documented by: Gabapentin (Neurontin) 300 mg PO TID [facility] Stop: 10/23/19 21:42 Last Admin: 09/28/19 20:59 Dose: 300 mg Documented by: Glucagon (Glucagen) 1 mg SQ UD PRN; Protocol PRN Reason: Hypoglycemia Protocol Stop: 10/23/19 21:42 Glucose (Dex4 Glucose) 4 - 8 tabs PO UD PRN; Protocol PRN Reason: Hypoglycemia Protocol Stop: 10/23/19 21:42 Glucose (Glucose 40%) 15 - 30 gm PO UD PRN; Protocol PRN Reason: Hypoglycemia Protocol Stop: 10/23/19 21:42 Hydroxyzine HCl (Vistaril) 25 mg PO QID PRN PRN Reason: Anxiety Stop: 10/23/19 21:42 Last Admin: 09/27/19 23:42 Dose: 25 mg Documented by: Promethazine HCl 12.5 mg/ (Sodium Chloride) 50.5 mls @ 202 mls/hr IV Q6H PRN PRN Reason: Nausea And Vomiting Stop: 10/23/19 21:42 Last Infusion: 09/28/19 18:33 Dose: Infused Documented by: Methylprednisolone 30 mg/ (Syringe) 0.48 mls @ 1.5 mls/min IV QAM [facility] Stop: 10/26/19 08:59 Last Admin: 09/28/19 08:33 Dose: 1.5 mls/min Documented by: Insulin Aspart (Novolog Flexpen) 0 units SC ACHS [facility] Stop: 10/23/19 22:29 Last Admin: 09/28/19 21:00 Dose: 12 units Documented by: Insulin Glargine (Lantus Solostar Pen) 10 units SC BID [facility] Stop: 10/24/19 08:59 Last Admin: 09/28/19 20:58 Dose: 10 units Documented by: Isosorbide Mononitrate (Imdur Extended Rel) 30 mg PO DAILY [facility] Stop: 10/24/19 08:59 Last Admin: 09/28/19 08:25 Dose: 30 mg Documented by: Lactobacillus Acidophilus (Floranex) 4 tab PO BID [facility] Stop: 10/24/19 08:59 Last Admin: 09/28/19 20:56 Dose: 4 tab Documented by: Lorazepam (Ativan) 1 mg PO TID PRN PRN Reason: Anxiety Stop: 10/23/19 21:42 Last Admin: 09/28/19 18:19 Dose: 1 mg Documented by: Metoprolol Succinate (Toprol Xl) 50 mg PO BID [facility] Stop: 10/27/19 02:44 Last Admin: 09/28/19 21:02 Dose: 50 mg Documented by: Miscellaneous (Carbohydrates For Hypoglycemia) 15 - 30 gm PO UD PRN PRN Reason: Hypoglycemia Protocol Stop: 10/23/19 21:42 Miscellaneous (Remove Nicoderm Patch) 1 ea N/A DAILY@2058 [facility] Stop: 10/24/19 20:58 Last Admin: 09/28/19 21:02 Dose: 1 ea Documented by: Nicotine (Nicoderm Cq) 21 mg TD HS [facility] Stop: 10/23/19 21:42 Last Admin: 09/28/19 21:00 Dose: 21 mg Documented by: Nitroglycerin (Nitrostat) 0.4 mg SL UD PRN PRN Reason: Chest Pain Stop: 10/23/19 21:42 Last Admin: 09/27/19 02:21 Dose: 0.4 mg Documented by: Oxycodone HCl (Roxicodone Immediate Rel) 20 mg PO QID PRN PRN Reason: pain, severe Stop: 10/07/19 21:42 Last Admin: 09/28/19 21:11 Dose: 20 mg Documented by: Pantoprazole Sodium (Protonix) 40 mg PO QAM [facility] Stop: 10/24/19 08:59 Last Admin: 09/28/19 08:24 Dose: 40 mg Documented by: Polyethylene Glycol (Miralax Powder Packet) 17 gm PO DAILY [facility] Stop: 10/24/19 18:14 Last Admin: 09/28/19 08:31 Dose: Not Given Documented by: Potassium Chloride (Klor-Con M20) 20 meq PO BID [facility] Stop: 10/23/19 21:42 Last Admin: 09/28/19 20:57 Dose: 20 meq Documented by: Senna/Docusate Sodium (Senokot S) 1 tab PO BID [facility] Stop: 10/23/19 21:42 Last Admin: 09/28/19 21:01 Dose: 1 tab Documented by: Sodium Biphosphate/Sodium Phosphate (Fleet Enema) 118 ml WI DAILY PRN PRN Reason: Constipation Stop: 10/23/19 21:42 Spironolactone (Aldactone) 25 mg PO DAILY [facility] Stop: 10/24/19 08:59 Last Admin: 09/28/19 08:24 Dose: 25 mg Documented by: Tamsulosin HCl (Flomax) 0.4 mg PO DAILY [facility] Stop: 10/24/19 08:59 Last Admin: 09/28/19 08:24 Dose: 0.4 mg Documented by: Warfarin Sodium (Coumadin) 7.5 mg PO DAILY@1600 [facility] Stop: 10/29/19 15:59
[2019-09-28] MEDS ORDERED: POTASSIUM CHLORIDE 20 MEQ TABCR PO STA (22:23)
--- NOTE | 2019-09-28 23:13 | Electrocardiogram Report ---
Test Reason : Blood Pressure : / mmHG Vent. Rate : 089 BPM Atrial Rate : 089 BPM P-R Int : 148 ms QRS Dur : 106 ms QT Int : 384 ms P-R-T Axes : 030 045 083 degrees QTc Int : 467 ms Normal sinus rhythm Nonspecific ST and T wave abnormality Incomplete right bundle branch block Abnormal ECG When compared with ECG of 27-SEP-2019 00:58, Nonspecific T wave abnormality now evident in Inferior leads Nonspecific T wave abnormality, worse in Lateral leads QT has shortened Confirmed by Shaquille Canales ([id number]) on 09/28/2019 11:13:40 PM Referred By: REFERRED SELF Confirmed By:Shaquille Canales
--- NOTE | 2019-09-28 23:26 | Electrocardiogram Report ---
Test Reason : Blood Pressure : / mmHG Vent. Rate : 063 BPM Atrial Rate : 063 BPM P-R Int : 158 ms QRS Dur : 098 ms QT Int : 402 ms P-R-T Axes : 029 038 066 degrees QTc Int : 411 ms Normal sinus rhythm Nonspecific ST and T wave abnormality Abnormal ECG When compared with ECG of 28-SEP-2019 01:19, Nonspecific T wave abnormality no longer evident in Inferior leads Nonspecific T wave abnormality, improved in Lateral leads QT has shortened Confirmed by Shaquille Canales ([id number]) on 09/28/2019 11:26:46 PM Referred By: REFERRED SELF Confirmed By:Shaquille Canales
[2019-09-29] MEDS: CAPSAICIN CR 0.075% 60 GM TUBE EXT PRN (00:30)
[2019-09-29] MEDS: LORazepam 1 MG TAB PO PRN ×3 (01:28→18:48)
[2019-09-29] MEDS: COUGH DROP (SUGAR FREE) LOZ 24 LOZ/1 BOX BUCCAL PRN (03:04)
[2019-09-29] MEDS: OXYCODONE HCL IR 5 MG TAB (IMMEDIATE RELEASE) PO PRN ×4 (03:04→20:48)
[2019-09-29] MEDS: PROMETHAZINE HCL 12.5 MG in SODIUM CHLORIDE 0.9% 50 ML IV PRN ×3 (04:00→18:48)
[2019-09-29 08:00] LABS: Hematocrit (blood only) 39.8 % (42-52); Hemoglobin 11.8 g/dL (14.0-18.0); Mean Corpuscular Hemoglobin 21.5 pg (25-34); Mean Corpuscular Hgb Conc 29.6 g/dL (32-36); Mean Corpuscular Volume 72.5 fL (80-100); Mean Platelet Volume 9.7 fL (7.4-10.4); Platelet Count 375 K/uL (130-400); RDW Coefficient of Variation 19.2 % (11.5-14.5); Red Blood Count 5.49 M/uL (4.7-6.1); White Blood Count 16.04 K/uL (4.8-10.8)
[2019-09-29 08:07] LABS: INR 1.3 (0.9-1.1); Prothrombin Time 12.9 Seconds (9.0-12.0)
[2019-09-29 08:28] LABS: BUN Creatinine Ratio 22.3 (10-20); Calcium 9.7 mg/dl (8.5-10.1); Creatinine Clr Calc Pharmacy 123.6 ml/min; Est GFR (Non-African American) 64.7; Magnesium 2.3 mg/dl (1.8-2.4); Potassium 3.4 mmol/L (3.5-5.1)
[2019-09-29] MEDS: ASPIRIN 81 MG ECTAB PO SCH (09:00)
[2019-09-29] MEDS: PANTOprazole 40 MG TAB PO SCH (09:00)
[2019-09-29] MEDS: SPIRONOLACTONE 25 MG TAB PO SCH (09:00)
[2019-09-29] MEDS: TAMSULOSIN HCL 0.4 MG CAP PO SCH (09:00)
[2019-09-29] MEDS: FUROSEMIDE 80 MG TAB PO SCH ×3 (09:01→23:13)
[2019-09-29] MEDS: METOPROLOL SUCC 50MG EXT REL TAB PO SCH ×2 (09:01→23:15)
[2019-09-29] MEDS: DULOXETINE HCL 60 MG CAP PO SCH (09:01)
[2019-09-29] MEDS: FINASTERIDE 5 MG TAB PO SCH (09:01)
[2019-09-29] MEDS: ISOSORBIDE MONO EXTENDED REL 30 MG TABCR PO SCH (09:02)
[2019-09-29] MEDS: DOCUSATE SODIUM/SENNA 50/8.6MG TAB PO SCH ×2 (09:02→23:15)
[2019-09-29] MEDS: LACTOBACILLUS ACIDOPHILUS (FLORANEX) TAB PO SCH ×2 (09:02→23:14)
[2019-09-29] MEDS: POTASSIUM CHLORIDE 20 MEQ TABCR PO SCH ×2 (09:02→23:18)
[2019-09-29] MEDS: BUDESONIDE/FORMOTEROL FUMARATE 160/4.5 60 PUFFS/INHALER INH SCH ×2 (09:03→23:15)
[2019-09-29] MEDS: IPRATROPIUM BROMIDE/ALBUTEROL respimat INH INH SCH ×4 (09:03→23:08)
[2019-09-29] MEDS: POLYETHYLENE (MIRALAX) 17 GM PACK PO SCH (09:04)
[2019-09-29] MEDS: GABAPENTIN 300 MG CAP PO SCH ×3 (09:04→23:11)
[2019-09-29] MEDS: DOXYCYCLINE HYCLATE 100 MG CAP PO SCH ×2 (09:04→23:16)
[2019-09-29] MEDS: CYCLOBENZAPRINE HCL 10 MG TAB PO SCH ×2 (09:05→23:13)
[2019-09-29] MEDS: INSULIN GLARGINE SOLOSTAR 100 UNITS/ML 3 ML PEN SC SCH ×2 (09:11→20:51)
[2019-09-29] MEDS: INSULIN ASPART 100 UNITS/ML 3 ML PEN SC SCH ×4 (09:12→20:52)
[2019-09-29] MEDS: methylPREDNISolone 30 MG in SYRINGE 0 ML IV SCH (09:23)
[2019-09-29] MEDS: WARFARIN SOD 7.5 MG TAB PO SCH (17:20)
--- NOTE | 2019-09-29 17:37 | Hospitalist Progress Note ---
Date of Service September 29, 2019 Assessment & Plan (1) Acute hypoxemic respiratory failure: -Reported increased shortness of breath, even with small exertion, air hunger, RR 28 on admission -treating for Secondary to COPD exacerbation/complicated bronchitis -patient has been on doxycycline for almost 1 week to date, can continue for now. -IV solumedrol of 30 mg daily is discontinued on 09/29/2019. oral prednisone to be started on 09/30/2019 -overnight pulse oximetry test ordered to see if patient benefits from CPAP or BIPAP Ongoing tobacco abuse -Continue nicotine patch Chronic back pain; Chronic Use of opioid pain medications -During last admission, there was a major interdisciplinary meeting, regarding his chronic opioid use, and history of drug-seeking behavior -At that time it was decided that patient can use oxycodone, up to 80 mg a day, 20 mg every about 6 hours -on going care plan discussions History of pulmonary embolism (by V/Q scan) Supratherapeutic INR on admission -patient is noted to have a pattern of hospital admissions with elevated coumadin levels -INR is 1.3 as of 09/29/2019 labs, currently on coumadin 7.5 mg daily, continue for now and trend INR Chronic anemia, hemoglobin at baseline History chronic diastolic heart failure (EF 60 to 65%, TTE 2019) Continue home diuretic Rx MAHAMED on Chronic Kidney disease stage II -acute kidney injury appears resolved Hypokalemia -secondary to diuresis -on scheduled potassium supplements Hypertension blood pressure stable History of Recurrent PE -on Coumadin Type 2 diabetes mellitus -Basal insulin, ISS BG goal [id number], carb count coverage Obesity with BMI of 59.5 Ambulatory dysfunction -PT/OT evaluation, encourage ambulation as tolerated DVT prophylaxis. Coumadin INR goal between 2 and 3 Full code Subjective Patient seen and examined in AM and in evening time. Patient made it clear to myself, Dr. Gilletet, that he did not want me to continue as his medical doctor usp. Patient was not expressing anger towards me. He was very calm and respectful. However, he would prefer my colleagues to see him starting on 09/30/2019 Patient was agreeable to overnight pulse oximetry test to see if any risk of sleep apnea. patient did not appear to be in severe pain. patient also seen eating dinner on room air. Review of Systems Review of Systems: All systems reviewed & are unremarkable except as noted in HPI & below Physical Exam Constitutional: WD/WN, vitals as above Eyes: PERRL, conjunctivae normal, anicteric sclerae EOM intact bilaterally ENMT: external ear and nose normal, oropharynx normal Neck: normal visual inspection Respiratory: normal respiratory effort Cardiovascular: Rate/Rhythm: regular rate Gastrointestinal (Abdomen): normal bowel sounds, soft, nontender, no hepatosplenomegaly Musculoskeletal: Head/Neck/Chest: normocephalic and head atraumatic Neurologic: PERRL, EOMI, accommodation nl, no face palsy, no dysarthria Psychiatric: Orientation: cooperative Results & Data Vital Signs (Past 12 Hours) Vital Signs Temp Pulse Pulse Resp BP Pulse Ox 09/29/19 15:28 36.9 C 87 18 132/82 94 09/29/19 11:53 36.6 C 82 20 139/78 93 09/29/19 07:47 36.4 C L 72 20 128/78 95 09/29/19 07:00 70
[2019-09-29] MEDS: NICOTINE 21 MG/24 HR TDSY TD SCH (23:09)
[2019-09-29] MEDS ORDERED: KETOROLAC 30 MG/ML VIAL IV ONE (23:21)
[2019-09-30] MEDS: LORazepam 1 MG TAB PO PRN ×3 (02:26→20:33)
[2019-09-30] MEDS: PROMETHAZINE HCL 12.5 MG in SODIUM CHLORIDE 0.9% 50 ML IV PRN ×3 (02:26→16:51)
[2019-09-30] MEDS: OXYCODONE HCL IR 5 MG TAB (IMMEDIATE RELEASE) PO PRN ×5 (02:50→21:04)
[2019-09-30 08:05] LABS: Hematocrit (blood only) 37.3 % (42-52); Mean Corpuscular Hemoglobin 21.3 pg (25-34); Mean Corpuscular Hgb Conc 29.5 g/dL (32-36); Mean Corpuscular Volume 72.1 fL (80-100); Mean Platelet Volume 9.5 fL (7.4-10.4); Platelet Count 340 K/uL (130-400); RDW Coefficient of Variation 19.3 % (11.5-14.5); RDW Standard Deviation 50.1 fL (36.4-46.3); Red Blood Count 5.17 M/uL (4.7-6.1); White Blood Count 16.39 K/uL (4.8-10.8)
[2019-09-30] MEDS: BUDESONIDE/FORMOTEROL FUMARATE 160/4.5 60 PUFFS/INHALER INH SCH ×2 (08:11→20:19)
[2019-09-30] MEDS: IPRATROPIUM BROMIDE/ALBUTEROL respimat INH INH SCH ×4 (08:11→20:10)
[2019-09-30] MEDS: METOPROLOL SUCC 50MG EXT REL TAB PO SCH ×2 (08:12→20:16)
[2019-09-30] MEDS: GABAPENTIN 300 MG CAP PO SCH (08:13)
[2019-09-30] MEDS: PANTOprazole 40 MG TAB PO SCH (08:13)
[2019-09-30] MEDS: FINASTERIDE 5 MG TAB PO SCH (08:13)
[2019-09-30] MEDS: SPIRONOLACTONE 25 MG TAB PO SCH (08:13)
[2019-09-30] MEDS: POLYETHYLENE (MIRALAX) 17 GM PACK PO SCH (08:14)
[2019-09-30] MEDS: CYCLOBENZAPRINE HCL 10 MG TAB PO SCH ×2 (08:14→20:09)
[2019-09-30] MEDS: DULOXETINE HCL 60 MG CAP PO SCH (08:14)
[2019-09-30] MEDS: LACTOBACILLUS ACIDOPHILUS (FLORANEX) TAB PO SCH ×2 (08:14→20:09)
[2019-09-30] MEDS: FUROSEMIDE 80 MG TAB PO SCH ×3 (08:14→20:15)
[2019-09-30] MEDS: TAMSULOSIN HCL 0.4 MG CAP PO SCH (08:14)
[2019-09-30] MEDS: ASPIRIN 81 MG ECTAB PO SCH (08:15)
[2019-09-30] MEDS: DOCUSATE SODIUM/SENNA 50/8.6MG TAB PO SCH ×2 (08:15→20:13)
[2019-09-30] MEDS: DOXYCYCLINE HYCLATE 100 MG CAP PO SCH ×2 (08:15→20:20)
[2019-09-30] MEDS: ISOSORBIDE MONO EXTENDED REL 30 MG TABCR PO SCH (08:15)
[2019-09-30 08:17] LABS: INR 1.4 (0.9-1.1); Prothrombin Time 14.3 Seconds (9.0-12.0)
[2019-09-30] MEDS: INSULIN ASPART 100 UNITS/ML 3 ML PEN SC SCH ×4 (08:24→21:01)
[2019-09-30] MEDS: INSULIN GLARGINE SOLOSTAR 100 UNITS/ML 3 ML PEN SC SCH ×2 (08:25→21:02)
[2019-09-30 08:37] LABS: BUN Creatinine Ratio 22.4 (10-20); Calcium 9.6 mg/dl (8.5-10.1); Creatinine Clr Calc Pharmacy 114.7 ml/min; Est GFR (African American) 68.5; Est GFR (Non-African American) 59.1; Potassium 3.3 mmol/L (3.5-5.1)
[2019-09-30] MEDS ORDERED: predniSONE 20 MG TAB PO SCH (09:00)
[2019-09-30] MEDS: POTASSIUM CHLORIDE 20 MEQ TABCR PO SCH ×2 (09:32→20:10)
[2019-09-30] MEDS: MELOXICAM 7.5 MG TAB PO SCH (09:33)
[2019-09-30] MEDS: GABAPENTIN 400 MG CAP PO SCH ×3 (09:35→20:10)
--- NOTE | 2019-09-30 09:36 | Hospitalist Progress Note ---
Date of Service September 30, 2019 Assessment & Plan (1) Acute hypoxemic respiratory failure: -Breathing well -treating for Secondary to COPD exacerbation/complicated bronchitis -patient has been on doxycycline for almost 1 week to date, can continue for now. -IV solumedrol of 30 mg daily is discontinued on 09/29/2019. oral prednisone to be started on 09/30/2019 -overnight pulse oximetry test ordered to see if patient benefits from CPAP or BIPAP, not desatting Ongoing tobacco abuse -Continue nicotine patch Chronic back pain; Chronic Use of opioid pain medications -During last admission, there was a major interdisciplinary meeting, regarding his chronic opioid use, and history of drug-seeking behavior -At that time it was decided that patient can use oxycodone, up to 80 mg a day, 20 mg every about 6 hours, I decreased his dose to 15 mg, but increased the frequency to Q4H -Mobic Added 15 mg QAM -Gabapentin increased to 400 mg TID -Elavil 50 mg QHS Scheduled -Hopefully can decrease frequency and dosages of OXY History of pulmonary embolism (by V/Q scan) trend INR Chronic anemia, hemoglobin at baseline History chronic diastolic heart failure (EF 60 to 65%, TTE 2019) Continue home diuretic Rx MAHAMED on Chronic Kidney disease stage II -acute kidney injury appears resolved -Monitor Cr on Mobic Hypokalemia -secondary to diuresis -on scheduled potassium supplements Hypertension blood pressure stable History of Recurrent PE -on Coumadin Type 2 diabetes mellitus -Basal insulin, ISS BG goal [id number], carb count coverage Obesity with BMI of 59.5 Ambulatory dysfunction -PT/OT evaluation, encourage ambulation as tolerated DVT prophylaxis. Coumadin INR goal between 2 and 3 Full code Labs checked ROS-No Headache, No Visual Changes, No Nausea, No Vomiting, No Fever, No Chills, No Neck Pain or Stiffness, No Chest Pain, No Palpitations, + SOB, + MAXWELL, No Cough, No Sputum, + Wheezing, No Abdominal Pain, No Diarrhea, No Hematemesis, No Hemoptysis, No Unexpected Weight Loss, No Flank pain, No Melena, No Hematochezia, No Frequency, No Urgency, No Burning, No Hematuria, No Rashes, No Diaphoresis. Appetite is Normal, c/o Pain asked OXY freq be increased, c/o pain in toes Physical Exam Gen-AAO x 3, NAD, Afebrile, pleasant Head-NCAT, EOMI, PERRLA, Anicteric Sclera, No Posterior Pharyngeal Erythema Neck-Supple, No JVD, No Thyromegaly, No Masses, No LAD, No Bruits Lungs-Wheezing Bilaterally, No Crepitus Chest-No S4, +S1, +S2, No S3, No Murmurs, No Rubs, No Gallops, No Ectopy Abdomen-Soft, Obese, Bowel Sounds Present, Non Tender, Non Distended, No Hepatomegaly, No Splenomegaly, No Palpable Masses, No Rebound, No Rigidity, No Guarding Musculoskeletal-Full Range of Motion Bilaterally, No CVAT Extremities-No Cyanosis, No Clubbing, No Edema Nuero-Cranial Nerves II-XII grossly intact, Motor WNL, DTRs WNL, Strength WNL, Non Focal Psych-Normal Mood Subjective Patient sitting up in bed, on supplemental oxygen, says he feels about the same,doesn't feel much better. Very unhappy about door being open. Currently denies any abdominal pain, nausea or vomiting. Complains of shortness of breath. Also says that he would like to go to inpatient rehab, says that his cannot take care of him anymore. Results & Data Vital Signs (Past 12 Hours) Vital Signs Temp Pulse Pulse Pulse Resp BP BP 09/30/19 07:19 36.6 C 71 20 126/75 09/30/19 04:00 36.5 C 68 18 135/87 09/30/19 02:26 76 09/30/19 01:09 77 09/30/19 01:04 89 09/30/19 00:38 82 09/30/19 00:03 95 H 09/29/19 23:00 36.7 C 92 H 20 137/79 09/29/19 21:58 85 Pulse Ox Pulse Ox 09/30/19 07:19 97 09/30/19 04:00 92 09/30/19 02:26 94 09/30/19 01:09 92 09/30/19 01:04 09/30/19 00:38 09/30/19 00:03 95 09/29/19 23:00 09/29/19 21:58 95
[2019-09-30] MEDS: WARFARIN SOD 7.5 MG TAB PO SCH (15:58)
[2019-09-30] MEDS: NICOTINE 21 MG/24 HR TDSY TD SCH (20:11)
[2019-09-30] MEDS: AMITRIPTYLINE HCL 50 MG TAB PO SCH (20:12)
[2019-10-01] MEDS: PROMETHAZINE HCL 12.5 MG in SODIUM CHLORIDE 0.9% 50 ML IV PRN ×3 (00:10→21:37)
[2019-10-01] MEDS: OXYCODONE HCL IR 5 MG TAB (IMMEDIATE RELEASE) PO PRN ×6 (00:52→23:54)
[2019-10-01] MEDS: LORazepam 1 MG TAB PO PRN ×3 (03:44→21:30)
[2019-10-01 06:31] LABS: Hematocrit (blood only) 35.7 % (42-52); Hemoglobin 10.9 g/dL (14.0-18.0); Mean Corpuscular Hgb Conc 30.5 g/dL (32-36); Mean Platelet Volume 9.8 fL (7.4-10.4); Platelet Count 361 K/uL (130-400); RDW Coefficient of Variation 19.4 % (11.5-14.5); RDW Standard Deviation 50.2 fL (36.4-46.3); Red Blood Count 4.96 M/uL (4.7-6.1); White Blood Count 16.87 K/uL (4.8-10.8)
[2019-10-01 06:43] LABS: INR 1.2 (0.9-1.1); Prothrombin Time 12.2 Seconds (9.0-12.0)
[2019-10-01 07:11] LABS: Albumin Level 2.9 gm/dl (3.4-5.0); Calcium 9.5 mg/dl (8.5-10.1); Creatinine Clr Calc Pharmacy 122.7 ml/min; Est GFR (African American) 74.3; Est GFR (Non-African American) 64.1; Potassium 3.3 mmol/L (3.5-5.1)
[2019-10-01 07:14] LABS: Albumin Globulin Ratio 0.7 (0.9-2); Bilirubin,Total 0.6 mg/dl (0.2-1); Globulin 4.1 gm/dl (2.5-4.0)
--- NOTE | 2019-10-01 08:41 | Hospitalist Progress Note ---
Date of Service October 01, 2019 Assessment & Plan (1) Acute hypoxemic respiratory failure: Reported increased shortness of breath, even with small exertion, air hunger, RR 28 on admission Secondary to COPD exacerbation/complicated bronchitis History steroid-dependent disease Ongoing tobacco abuse no overt sepsis for now Medical telemetry Supplemental O2, currently using 1L/min, appears comfortable and able to speak in full sentences Doxycycline, nebs, cont. IV Solumedrol for now, plan to switch back to PO and titrate down to usual daily dose Pulmonary consult if without improvement Hx chronic diastolic heart failure (EF 60 to 65%, TTE 2018), mild signs of overload (mild acute on chronic CHF - Resolved) ? Home diuretic non-compliance for possible secondary gain (hx recurrent ER visits/hospital readmissions due to noncompliance, hx drug- seeking behavior as per records) Continue home diuretic Rx -volume status already much improved w/o any need of IV diuretics, cont. salt and fluid restr. diet -Monitor I's and O's, and daily standing weights -weight on last discharge on 08/25 : 202.8 kg, on current admission: 210 kg, current: 201.3kg -Low-salt diet and fluid restriction diet -Replace and monitor electrolytes as needed MAHAMED - Resolved - Cr on admission 1.09, and on August 25, 2019, on last discharge creatinine 1.29 (baseline 1.1-1.3) - Cr. 1.42 (09/24/2019), likely due to diuresis, with restricted fluid intake in the hospital - cont. to monitor, Mobic started-Monitor Cr Hypokalemia -secondary to diuresis -Replete and monitor Hypertension, stable Recurrent PE on Coumadin, INR supratherapeutic on admission - INR 9.9 on 09/24 - current INR down to 2.0 - cont. to monitor DM 2 -suboptimal control as of recent hemoglobin A1c of July 2019 -He was discharged from here on insulin, states that his primary care provider started him on different medication, which he cannot afford -He says that he has a diabetic supplies and insulin at home, which I prescribed for him at the last admission, however it is unclear if he is actually using it -Basal insulin, ISS BG goal [id number], carb count coverage Chronic anemia, hemoglobin at baseline Chronic back pain -During last admission, there was a major interdisciplinary meeting, regarding his chronic opioid use, and history of drug-seeking behavior -At that time it was decided that patient can use oxycodone, up to 80 mg a day, 20 mg every about 6 hours -Patient says that he still has pain, and asks about pain medications, he also appears very comfortable and in no acute distress - added capsaicin gel for feet and legs as needed, seems to be helping w/ pain in his feet but he also cont. to ask about IV opioids -Judicious narcotic administration given reported respiratory distress, and history of drug-seeking behavior -Mobic Added 15 mg QAM -Gabapentin increased to 400 mg TID -Elavil 50 mg QHS Scheduled -Hopefully can decrease frequency and dosages of OXY Ongoing tobacco abuse -During last admission, I counseled him on tobacco cessation, provided him with 1 800 quit now line -Patient says that he still continues to smoke, 1 pack a day, and did not call the number above -Continue nicotine patch Ambulatory dysfunction - PT/OT eval DVT prophylaxis. Coumadin INR goal between 2 and 3 Full code Labs Checked ROS-No Headache, No Visual Changes, No Nausea, No Vomiting, No Fever, No Chills, No Neck Pain or Stiffness, No Chest Pain, No Palpitations, +SOB, +MAXWELL, +Cough, No Sputum, +Wheezing, No Abdominal Pain, No Diarrhea, No Hematemesis, No Hemoptysis, No Unexpected Weight Loss, No Flank pain, No Melena, No Hematochezia, No Frequency, No Urgency, No Burning, No Hematuria, No Rashes, No Diaphoresis. Appetite is Normal, Back foot pain Physical Exam Gen-AAO x 3, NAD, Afebrile, Obese Head-NCAT, EOMI, PERRLA, Anicteric Sclera, No Posterior Pharyngeal Erythema Neck-Supple, No JVD, No Thyromegaly, No Masses, No LAD, No Bruits Lungs-B/L Wheezing, No Crepitus Chest-No S4, +S1, +S2, No S3, No Murmurs, No Rubs, No Gallops, No Ectopy Abdomen-Soft, Bowel Sounds Present, Non Tender, Non Distended, No Hepatomegaly, No Splenomegaly, No Palpable Masses, No Rebound, No Rigidity, No Guarding Musculoskeletal-Full Range of Motion Bilaterally, No CVAT Extremities-No Cyanosis, No Clubbing, Trace Edema Nuero-Cranial Nerves II-XII grossly intact, Motor WNL, DTRs WNL, Strength WNL, Non Focal Psych-Normal Mood Results & Data Vital Signs (Past 12 Hours) Vital Signs Temp Pulse Pulse Resp BP BP Pulse Ox 10/01/19 07:44 74 10/01/19 07:00 36.7 C 71 18 126/70 93 10/01/19 04:26 36.7 C 74 18 152/72 H 96 10/01/19 01:12 89 09/30/19 22:50 36.7 C 84 18 131/79 94
[2019-10-01] MEDS: FUROSEMIDE 80 MG TAB PO SCH ×3 (09:36→21:31)
[2019-10-01] MEDS: POTASSIUM CHLORIDE 20 MEQ TABCR PO SCH ×2 (09:37→21:34)
[2019-10-01] MEDS: LACTOBACILLUS ACIDOPHILUS (FLORANEX) TAB PO SCH ×2 (09:37→21:32)
[2019-10-01] MEDS: ISOSORBIDE MONO EXTENDED REL 30 MG TABCR PO SCH (09:37)
[2019-10-01] MEDS: METOPROLOL SUCC 50MG EXT REL TAB PO SCH ×2 (09:38→21:36)
[2019-10-01] MEDS: MELOXICAM 7.5 MG TAB PO SCH (09:38)
[2019-10-01] MEDS: ASPIRIN 81 MG ECTAB PO SCH (09:38)
[2019-10-01] MEDS: CYCLOBENZAPRINE HCL 10 MG TAB PO SCH ×2 (09:38→21:31)
[2019-10-01] MEDS: SPIRONOLACTONE 25 MG TAB PO SCH (09:38)
[2019-10-01] MEDS: FINASTERIDE 5 MG TAB PO SCH (09:38)
[2019-10-01] MEDS: DULOXETINE HCL 60 MG CAP PO SCH (09:38)
[2019-10-01] MEDS: PANTOprazole 40 MG TAB PO SCH (09:38)
[2019-10-01] MEDS: DOCUSATE SODIUM/SENNA 50/8.6MG TAB PO SCH ×2 (09:39→21:34)
[2019-10-01] MEDS: BUDESONIDE/FORMOTEROL FUMARATE 160/4.5 60 PUFFS/INHALER INH SCH ×2 (09:39→21:36)
[2019-10-01] MEDS: IPRATROPIUM BROMIDE/ALBUTEROL respimat INH INH SCH ×4 (09:39→21:33)
[2019-10-01] MEDS: TAMSULOSIN HCL 0.4 MG CAP PO SCH (09:39)
[2019-10-01] MEDS: GABAPENTIN 400 MG CAP PO SCH ×3 (09:39→21:32)
[2019-10-01] MEDS: POLYETHYLENE (MIRALAX) 17 GM PACK PO SCH (09:40)
[2019-10-01] MEDS: INSULIN GLARGINE SOLOSTAR 100 UNITS/ML 3 ML PEN SC SCH ×2 (09:44→21:27)
[2019-10-01] MEDS: INSULIN ASPART 100 UNITS/ML 3 ML PEN SC SCH ×4 (09:44→21:26)
[2019-10-01] MEDS: methylPREDNISolone 60 MG in SYRINGE 0 ML IV SCH ×2 (09:54→21:29)
[2019-10-01] MEDS ORDERED: HEPARIN IV BOLUS 10,000 UNITS in SYRINGE 0 ML IV ONE (10:30)
[2019-10-01] MEDS: HEPARIN SODIUM/DEXTROSE 25,000 UNITS/500 ML BAG IV SCH ×2 (11:04→21:25)
[2019-10-01] MEDS ORDERED: Nursing to Pharmacy Communication ONE (14:15)
[2019-10-01] MEDS ORDERED: SODIUM CHLORIDE 0.65% NA SOLN 45 ML (OCEAN) PRN (14:33)
[2019-10-01] MEDS: WARFARIN SOD 7.5 MG TAB PO SCH (17:53)
[2019-10-01 19:30] LABS: Partial Thromboplastin Ratio 2.4
[2019-10-01 19:40] LABS: Partial Thromboplastin Time 64.5 Seconds (21.0-31.0)
[2019-10-01] MEDS: AMITRIPTYLINE HCL 50 MG TAB PO SCH (21:31)
[2019-10-01] MEDS: NICOTINE 21 MG/24 HR TDSY TD SCH (21:34)
[2019-10-02] MEDS: HEPARIN SODIUM/DEXTROSE 25,000 UNITS/500 ML BAG IV SCH ×2 (06:33→17:49)
[2019-10-02] MEDS: OXYCODONE HCL IR 5 MG TAB (IMMEDIATE RELEASE) PO PRN ×4 (06:33→20:28)
[2019-10-02 06:51] LABS: Hematocrit (blood only) 35.5 % (42-52); Hemoglobin 10.6 g/dL (14.0-18.0); Mean Corpuscular Hemoglobin 21.3 pg (25-34); Mean Corpuscular Hgb Conc 29.9 g/dL (32-36); Mean Corpuscular Volume 71.4 fL (80-100); Mean Platelet Volume 9.8 fL (7.4-10.4); Platelet Count 318 K/uL (130-400); RDW Coefficient of Variation 19.5 % (11.5-14.5); Red Blood Count 4.97 M/uL (4.7-6.1)
[2019-10-02 07:00] LABS: INR 1.1 (0.9-1.1); Prothrombin Time 11.4 Seconds (9.0-12.0)
[2019-10-02] MEDS: PANTOprazole 40 MG TAB PO SCH (07:32)
[2019-10-02] MEDS: IPRATROPIUM BROMIDE/ALBUTEROL respimat INH INH SCH ×4 (07:32→20:32)
[2019-10-02 07:33] LABS: BUN Creatinine Ratio 24.3 (10-20); Calcium 9.6 mg/dl (8.5-10.1); Creatinine Clr Calc Pharmacy 140.9 ml/min; Est GFR (African American) 86.1; Est GFR (Non-African American) 74.3; Potassium 3.9 mmol/L (3.5-5.1)
[2019-10-02] MEDS: FUROSEMIDE 80 MG TAB PO SCH ×3 (07:33→20:36)
[2019-10-02] MEDS: ISOSORBIDE MONO EXTENDED REL 30 MG TABCR PO SCH (07:33)
[2019-10-02] MEDS: POTASSIUM CHLORIDE 20 MEQ TABCR PO SCH ×2 (07:33→20:36)
[2019-10-02] MEDS: GABAPENTIN 400 MG CAP PO SCH ×3 (07:33→20:33)
[2019-10-02] MEDS: LACTOBACILLUS ACIDOPHILUS (FLORANEX) TAB PO SCH ×2 (07:33→20:33)
[2019-10-02] MEDS: METOPROLOL SUCC 50MG EXT REL TAB PO SCH ×2 (07:33→20:37)
[2019-10-02] MEDS: FINASTERIDE 5 MG TAB PO SCH (07:33)
[2019-10-02] MEDS: MELOXICAM 7.5 MG TAB PO SCH (07:33)
[2019-10-02] MEDS: ASPIRIN 81 MG ECTAB PO SCH (07:34)
[2019-10-02] MEDS: CYCLOBENZAPRINE HCL 10 MG TAB PO SCH ×2 (07:34→20:28)
[2019-10-02] MEDS: TAMSULOSIN HCL 0.4 MG CAP PO SCH (07:34)
[2019-10-02] MEDS: POLYETHYLENE (MIRALAX) 17 GM PACK PO SCH (07:34)
[2019-10-02] MEDS: DULOXETINE HCL 60 MG CAP PO SCH (07:34)
[2019-10-02] MEDS: SPIRONOLACTONE 25 MG TAB PO SCH (07:34)
[2019-10-02] MEDS: methylPREDNISolone 60 MG in SYRINGE 0 ML IV SCH (07:34)
[2019-10-02] MEDS: DOCUSATE SODIUM/SENNA 50/8.6MG TAB PO SCH ×2 (07:36→20:35)
[2019-10-02 08:09] LABS: Partial Thromboplastin Ratio 2.3
[2019-10-02] MEDS: BUDESONIDE/FORMOTEROL FUMARATE 160/4.5 60 PUFFS/INHALER INH SCH ×2 (08:14→20:35)
[2019-10-02] MEDS: INSULIN GLARGINE SOLOSTAR 100 UNITS/ML 3 ML PEN SC SCH ×2 (08:14→20:40)
[2019-10-02] MEDS: INSULIN ASPART 100 UNITS/ML 3 ML PEN SC SCH ×4 (08:15→20:41)
[2019-10-02 08:21] LABS: Partial Thromboplastin Time 63.1 Seconds (21.0-31.0)
[2019-10-02] MEDS: LORazepam 1 MG TAB PO PRN ×2 (12:32→21:33)
[2019-10-02] MEDS: PROMETHAZINE HCL 12.5 MG in SODIUM CHLORIDE 0.9% 50 ML IV PRN ×2 (13:07→20:29)
[2019-10-02] MEDS ORDERED: POLYETHYLENE (MIRALAX) 17 GM PACK PO ONE (13:40)
[2019-10-02] MEDS: WARFARIN SOD 5 MG TAB PO SCH (16:24)
[2019-10-02] MEDS ORDERED: KETOROLAC TROMETHAMINE 15 MG/ML VIAL IV ONE (18:39)
--- NOTE | 2019-10-02 20:05 | Hospitalist Progress Note ---
Date of Service October 02, 2019 Assessment & Plan (1) Acute hypoxemic respiratory failure: Acute hypoxic respiratory failure Multifactorial:COPD and CHF exacerbation H/O steroid-dependent disease Ongoing tobacco abuse CXR:No significant change compared to the prior study. No acute process. Taper down IV steroids as able Continue inhalers Completed doxycycline course Weaned off supplemental oxygen Acute on chronic diastolic heart failure ? Home diuretic/diet/fluid restriction compliance IV diuretics transition to p.o. Continue fluid restriction Monitor volume status, I/Os, daily weight MAHAMED Resolved Monitor renal function Avoid nephrotoxic agents as able Hypokalemia secondary to diuresis Replete as needed Hypertension stable Continue current medication H/O Recurrent PE Subtherapeutic INR Monitor INR Coumadin--adjust dose as needed DM II suboptimal control as of recent hemoglobin A1c of July 2019 Was discharged on insulin during prior admission Continue insulin therapy while hospitalized Monitor BGs Chronic back pain Chronic opioid dependence Continue current medications Judicious narcotic use given respiratory issues and H/O drug dependence Ongoing tobacco abuse Counseled to quit on multiple occasions On Nicotine Patch Ambulatory dysfunction PT/OT eval DVT Px: Coumadin Continue IV heparin for now Code Status Full code Disposition May need rehab placement Subjective Patient is seen and examined at bedside Complains of chronic pain Also states having constipation Shortness of breath much improved Offers no other complaints Review of Systems Review of Systems: All systems reviewed & are unremarkable except as noted in HPI & below Physical Exam Physical Exam: Physical Exam: Vitals signs as noted above General Appearance:Morbidly obese, no apparent distress Head: normocephalic, Atraumatic Eyes: normal inspection, EOMI Neck: supple, Trachea midline Respiratory/Chest: Decreased breath sounds, scattered wheezes Cardiovascular: S1, S2, No murmur Abdomen/GI:Soft, Non tender, Bowel sounds present Extremities/Musculoskelatal:normal inspection, Trace pedal edema Neurologic/Psych:AAOX3, grossly no focal neurological deficits Skin: normal color, warm Results & Data Vital Signs (Past 12 Hours) Vital Signs Temp Pulse Pulse Resp BP Pulse Ox 10/02/19 15:59 75 10/02/19 14:57 36.6 C 83 20 108/64 93 10/02/19 11:41 36.5 C 76 18 116/76 94 Laboratory Results Short CBC 10/02/19 Range/Units 06:32 WBC 17.00 H (4.8-10.8) K/uL Hgb 10.6 L (14.0-18.0) g/dL Hct 35.5 L (42-52) % Plt Count 318 (130-400) K/uL [facility] 10/02/19 06:32 Sodium 139 Potassium 3.9 D Chloride 102 Carbon Dioxide 32 BUN 28 H Creatinine 1.15 Glucose 224 H Calcium 9.6
[2019-10-02] MEDS: methylPREDNISolone 40 MG in SYRINGE 0 ML IV SCH (20:32)
[2019-10-02] MEDS: AMITRIPTYLINE HCL 50 MG TAB PO SCH (20:37)
[2019-10-02] MEDS: NICOTINE 21 MG/24 HR TDSY TD SCH (20:38)
[2019-10-02] MEDS ORDERED: KETOROLAC 30 MG/ML VIAL IV ONE (23:17)
[2019-10-03] MEDS: OXYCODONE HCL IR 5 MG TAB (IMMEDIATE RELEASE) PO PRN ×6 (00:20→23:48)
[2019-10-03] MEDS: HEPARIN SODIUM/DEXTROSE 25,000 UNITS/500 ML BAG IV SCH ×2 (04:53→16:27)
[2019-10-03] MEDS: IPRATROPIUM BROMIDE/ALBUTEROL respimat INH INH SCH ×4 (07:22→20:27)
[2019-10-03] MEDS: BUDESONIDE/FORMOTEROL FUMARATE 160/4.5 60 PUFFS/INHALER INH SCH ×2 (07:22→20:33)
[2019-10-03] MEDS: METOPROLOL SUCC 50MG EXT REL TAB PO SCH ×2 (07:22→20:34)
[2019-10-03] MEDS: ISOSORBIDE MONO EXTENDED REL 30 MG TABCR PO SCH (07:23)
[2019-10-03] MEDS: DOCUSATE SODIUM/SENNA 50/8.6MG TAB PO SCH ×2 (07:23→20:33)
[2019-10-03] MEDS: FINASTERIDE 5 MG TAB PO SCH (07:23)
[2019-10-03] MEDS: POTASSIUM CHLORIDE 20 MEQ TABCR PO SCH ×2 (07:23→20:34)
[2019-10-03] MEDS: GABAPENTIN 400 MG CAP PO SCH ×3 (07:23→20:32)
[2019-10-03] MEDS: MELOXICAM 7.5 MG TAB PO SCH (07:23)
[2019-10-03] MEDS: PANTOprazole 40 MG TAB PO SCH (07:23)
[2019-10-03] MEDS: FUROSEMIDE 80 MG TAB PO SCH ×3 (07:23→20:31)
[2019-10-03] MEDS: LACTOBACILLUS ACIDOPHILUS (FLORANEX) TAB PO SCH ×2 (07:23→20:29)
[2019-10-03] MEDS: SPIRONOLACTONE 25 MG TAB PO SCH (07:24)
[2019-10-03] MEDS: CYCLOBENZAPRINE HCL 10 MG TAB PO SCH ×2 (07:24→20:29)
[2019-10-03] MEDS: ASPIRIN 81 MG ECTAB PO SCH (07:24)
[2019-10-03] MEDS: DULOXETINE HCL 60 MG CAP PO SCH (07:24)
[2019-10-03] MEDS: TAMSULOSIN HCL 0.4 MG CAP PO SCH (07:24)
[2019-10-03] MEDS: POLYETHYLENE (MIRALAX) 17 GM PACK PO SCH (07:24)
[2019-10-03] MEDS: methylPREDNISolone 40 MG in SYRINGE 0 ML IV SCH (07:58)
[2019-10-03] MEDS: PROMETHAZINE HCL 12.5 MG in SODIUM CHLORIDE 0.9% 50 ML IV PRN ×2 (07:58→18:07)
[2019-10-03 08:14] LABS: INR 1.1 (0.9-1.1); Prothrombin Time 11.4 Seconds (9.0-12.0)
[2019-10-03] MEDS: INSULIN GLARGINE SOLOSTAR 100 UNITS/ML 3 ML PEN SC SCH ×2 (08:15→20:31)
[2019-10-03] MEDS: INSULIN ASPART 100 UNITS/ML 3 ML PEN SC SCH ×4 (08:15→20:35)
[2019-10-03 08:17] LABS: BUN Creatinine Ratio 24.4 (10-20); Calcium 10.1 mg/dl (8.5-10.1); Creatinine Clr Calc Pharmacy 124.5 ml/min; Est GFR (African American) 73.6; Est GFR (Non-African American) 63.5
[2019-10-03 08:48] LABS: Partial Thromboplastin Time 55.4 Seconds (21.0-31.0)
[2019-10-03] MEDS: LORazepam 1 MG TAB PO PRN ×2 (13:14→21:43)
[2019-10-03] MEDS ORDERED: POLYETHYLENE (MIRALAX) 17 GM PACK PO PRN (13:40)
[2019-10-03] MEDS: WARFARIN SOD 5 MG TAB PO SCH (15:54)
[2019-10-03] MEDS ORDERED: HYDROmorphone HCL 2 MG TAB PO ONE (17:05)
--- NOTE | 2019-10-03 19:16 | Hospitalist Progress Note ---
Date of Service October 03, 2019 Assessment & Plan (1) Acute hypoxemic respiratory failure: Acute hypoxic respiratory failure Multifactorial:COPD and CHF exacerbation H/O steroid-dependent disease Ongoing tobacco abuse CXR:No significant change compared to the prior study. No acute process. Decrease Solumedrol to 40mg daily Continue inhalers Completed doxycycline course Weaned off supplemental oxygen Acute on chronic diastolic heart failure ? Home diuretic/diet/fluid restriction compliance IV diuretics transition to p.o. Continue fluid restriction Monitor volume status, I/Os, daily weight Volume status improved MAHAMED Resolved Monitor renal function Avoid nephrotoxic agents as able Hypokalemia secondary to diuresis Replete as needed Hypertension stable Continue current medication H/O Recurrent PE Subtherapeutic INR--Now subtherapeutic Monitor INR:1.1 Coumadin--adjust dose as needed DM II suboptimal control as of recent hemoglobin A1c of July 2019 Was discharged on insulin during prior admission Continue insulin therapy while hospitalized Monitor BGs Chronic back pain Chronic opioid dependence Continue current medications Judicious narcotic use given respiratory issues and H/O drug dependence Ongoing tobacco abuse Counseled to quit on multiple occasions On Nicotine Patch Ambulatory dysfunction PT/OT eval DVT Px: Coumadin Continue IV heparin for now Code Status Full code Disposition May need rehab placement Subjective Patient is seen and examined at bedside Continue request for increasing pain meds Denies any chest pain, SOB today Offers no other complaints Review of Systems Review of Systems: All systems reviewed & are unremarkable except as noted in HPI & below Physical Exam Physical Exam: Physical Exam: Vitals signs as noted above General Appearance:Morbidly obese, no apparent distress Head: normocephalic, Atraumatic Eyes: normal inspection, EOMI Neck: supple, Trachea midline Respiratory/Chest: Decreased breath sounds, Minimal wheezes Cardiovascular: S1, S2, No murmur Abdomen/GI:Soft, Non tender, Bowel sounds present Extremities/Musculoskelatal:normal inspection, Trace pedal edema Neurologic/Psych:AAOX3, grossly no focal neurological deficits Skin: normal color, warm Results & Data Vital Signs (Past 12 Hours) Vital Signs Temp Pulse Resp BP BP Pulse Ox 10/03/19 15:17 36.8 C 83 20 105/62 96 10/03/19 11:06 36.7 C 76 20 119/67 94 10/03/19 07:26 36.8 C 68 20 126/70 96 Laboratory Results BMP 10/03/19 07:27 Sodium 136 Potassium 4.0 Chloride 100 Carbon Dioxide 31 BUN 32 H Creatinine 1.31 Glucose 205 H Calcium 10.1
[2019-10-03] MEDS: AMITRIPTYLINE HCL 50 MG TAB PO SCH (20:29)
[2019-10-03] MEDS: NICOTINE 21 MG/24 HR TDSY TD SCH (20:32)
[2019-10-03] MEDS ORDERED: KETOROLAC TROMETHAMINE 15 MG/ML VIAL IV ONE (21:30)
[2019-10-04] MEDS ORDERED: OXYCODONE HCL IR 5 MG TAB (IMMEDIATE RELEASE) PO STA (00:10)
[2019-10-04] MEDS: PROMETHAZINE HCL 12.5 MG in SODIUM CHLORIDE 0.9% 50 ML IV PRN ×2 (02:36→12:00)
[2019-10-04] MEDS: HEPARIN SODIUM/DEXTROSE 25,000 UNITS/500 ML BAG IV SCH ×2 (03:40→15:16)
[2019-10-04] MEDS: OXYCODONE HCL IR 5 MG TAB (IMMEDIATE RELEASE) PO PRN ×5 (03:47→21:58)
[2019-10-04 08:55] LABS: INR 1.3 (0.9-1.1); Prothrombin Time 13.2 Seconds (9.0-12.0)
[2019-10-04 09:17] LABS: BUN Creatinine Ratio 20.7 (10-20); Calcium 9.7 mg/dl (8.5-10.1); Creatinine Clr Calc Pharmacy 108.1 ml/min; Est GFR (Non-African American) 53.5; Potassium 3.3 mmol/L (3.5-5.1)
[2019-10-04] MEDS: INSULIN ASPART 100 UNITS/ML 3 ML PEN SC SCH ×4 (09:18→21:17)
[2019-10-04] MEDS: INSULIN GLARGINE SOLOSTAR 100 UNITS/ML 3 ML PEN SC SCH ×2 (09:19→21:16)
[2019-10-04] MEDS: SPIRONOLACTONE 25 MG TAB PO SCH (09:23)
[2019-10-04] MEDS: IPRATROPIUM BROMIDE/ALBUTEROL respimat INH INH SCH ×4 (09:23→21:10)
[2019-10-04] MEDS: ASPIRIN 81 MG ECTAB PO SCH (09:24)
[2019-10-04] MEDS: DULOXETINE HCL 60 MG CAP PO SCH (09:24)
[2019-10-04] MEDS: TAMSULOSIN HCL 0.4 MG CAP PO SCH (09:25)
[2019-10-04] MEDS: CYCLOBENZAPRINE HCL 10 MG TAB PO SCH ×2 (09:25→21:14)
[2019-10-04] MEDS: LACTOBACILLUS ACIDOPHILUS (FLORANEX) TAB PO SCH ×2 (09:25→21:15)
[2019-10-04] MEDS: ISOSORBIDE MONO EXTENDED REL 30 MG TABCR PO SCH (09:26)
[2019-10-04] MEDS: POTASSIUM CHLORIDE 20 MEQ TABCR PO SCH ×2 (09:27→21:12)
[2019-10-04] MEDS: FUROSEMIDE 80 MG TAB PO SCH ×3 (09:27→21:13)
[2019-10-04] MEDS: GABAPENTIN 400 MG CAP PO SCH ×3 (09:28→21:11)
[2019-10-04] MEDS: MELOXICAM 7.5 MG TAB PO SCH (09:28)
[2019-10-04] MEDS: DOCUSATE SODIUM/SENNA 50/8.6MG TAB PO SCH ×2 (09:29→21:12)
[2019-10-04] MEDS: FINASTERIDE 5 MG TAB PO SCH (09:29)
[2019-10-04] MEDS: PANTOprazole 40 MG TAB PO SCH (09:29)
[2019-10-04] MEDS: BUDESONIDE/FORMOTEROL FUMARATE 160/4.5 60 PUFFS/INHALER INH SCH ×2 (09:30→21:18)
[2019-10-04] MEDS: METOPROLOL SUCC 50MG EXT REL TAB PO SCH ×2 (09:30→21:12)
[2019-10-04] MEDS: POLYETHYLENE (MIRALAX) 17 GM PACK PO SCH (09:31)
[2019-10-04] MEDS: methylPREDNISolone 40 MG in SYRINGE 0 ML IV SCH (09:36)
[2019-10-04 09:44] LABS: Partial Thromboplastin Ratio 2.2
[2019-10-04 10:00] LABS: Partial Thromboplastin Time 60.1 Seconds (21.0-31.0)
[2019-10-04] MEDS ORDERED: HYDROmorphone HCL 2 MG TAB PO ONE (11:16)
[2019-10-04] MEDS ORDERED: HYDROmorphone HCL 2 MG TAB PO STA (16:24)
[2019-10-04] MEDS ORDERED: LIDOCAINE 2% JELLY 5 ML TUBE ONE (16:27)
[2019-10-04] MEDS: WARFARIN SOD 5 MG TAB PO SCH (17:06)
[2019-10-04] MEDS: LIDOCAINE 2% JELLY 5 ML TUBE EXT SCH (18:10)
--- NOTE | 2019-10-04 19:34 | Hospitalist Progress Note ---
Date of Service October 04, 2019 Assessment & Plan (1) Acute hypoxemic respiratory failure: Acute hypoxic respiratory failure Multifactorial:COPD and CHF exacerbation H/O steroid-dependent disease Ongoing tobacco abuse CXR:No significant change compared to the prior study. No acute process. Decrease Solumedrol to 40mg daily Continue inhalers Completed doxycycline course Saturating well on room air Transition to prednisone as able Acute on chronic diastolic heart failure ? Home diuretic/diet/fluid restriction compliance IV diuretics transition to p.o. Continue fluid restriction Monitor volume status, I/Os, daily weight Volume status improved MAHAMED Creatinine slightly up today Hold Mobic for now Monitor renal function Avoid nephrotoxic agents as able Hypokalemia secondary to diuresis Replete as needed Chronic urinary incontinence Replaced Lloyd catheter Follow-up with urology as outpatient Hypertension stable Continue current medication H/O Recurrent PE Subtherapeutic INR--Now subtherapeutic Monitor INR:1.3 Coumadin--adjust dose as needed Continue IV heparin for now DM II suboptimal control as of recent hemoglobin A1c of July 2019 Was discharged on insulin during prior admission Continue insulin therapy while hospitalized Monitor BGs Chronic back pain Chronic opioid dependence Continue current medications Judicious narcotic use given respiratory issues and H/O drug dependence Ongoing tobacco abuse Counseled to quit on multiple occasions On Nicotine Patch Ambulatory dysfunction PT/OT eval DVT Px: Coumadin Continue IV heparin for now Code Status Full code Disposition May need rehab placement Subjective Patient is seen and examined at bedside Had urinary incontinence secondary to Lloyd catheter issues overnight Continue request for pain meds Denies any chest pain, SOB today No family at bedside Review of Systems Review of Systems: All systems reviewed & are unremarkable except as noted in HPI & below Physical Exam Physical Exam: Physical Exam: Vitals signs as noted above General Appearance:Morbidly obese, no apparent distress Head: normocephalic, Atraumatic Eyes: normal inspection, EOMI Neck: supple, Trachea midline Respiratory/Chest: Decreased breath sounds, CTA Cardiovascular: S1, S2, No murmur Abdomen/GI:Soft, Non tender, Bowel sounds present Extremities/Musculoskelatal:normal inspection, Trace pedal edema Neurologic/Psych:AAOX3, grossly no focal neurological deficits Skin: normal color, warm Results & Data Vital Signs (Past 12 Hours) Vital Signs Temp Pulse Pulse Resp BP Pulse Ox 10/04/19 19:17 36.8 C 89 18 106/67 94 10/04/19 18:15 85 10/04/19 15:27 36.8 C 82 18 114/61 94 Laboratory Results BMP 10/04/19 08:17 Sodium 136 Potassium 3.3 L D Chloride 97 L Carbon Dioxide 32 BUN 31 H Creatinine 1.51 H Glucose 163 H Calcium 9.7
[2019-10-04] MEDS: LORazepam 1 MG TAB PO PRN (21:10)
[2019-10-04] MEDS: NICOTINE 21 MG/24 HR TDSY TD SCH (21:13)
[2019-10-04] MEDS: AMITRIPTYLINE HCL 50 MG TAB PO SCH (21:15)
[2019-10-05] MEDS: OXYCODONE HCL IR 5 MG TAB (IMMEDIATE RELEASE) PO PRN ×6 (01:23→22:28)
[2019-10-05] MEDS: COUGH DROP (SUGAR FREE) LOZ 24 LOZ/1 BOX BUCCAL PRN (02:47)
[2019-10-05] MEDS: HEPARIN SODIUM/DEXTROSE 25,000 UNITS/500 ML BAG IV SCH ×2 (02:49→12:52)
[2019-10-05] MEDS: PROMETHAZINE HCL 12.5 MG in SODIUM CHLORIDE 0.9% 50 ML IV PRN ×3 (06:00→22:29)
[2019-10-05 07:19] LABS: INR 1.4 (0.9-1.1); Partial Thromboplastin Ratio 2.4; Prothrombin Time 14.4 Seconds (9.0-12.0)
[2019-10-05 07:27] LABS: Partial Thromboplastin Time 64.1 Seconds (21.0-31.0)
[2019-10-05 07:36] LABS: BUN Creatinine Ratio 21.8 (10-20); Calcium 9.7 mg/dl (8.5-10.1); Est GFR (African American) 70.9; Est GFR (Non-African American) 61.2
[2019-10-05] MEDS: LORazepam 1 MG TAB PO PRN ×2 (08:18→15:57)
[2019-10-05] MEDS: CYCLOBENZAPRINE HCL 10 MG TAB PO SCH ×2 (08:18→20:06)
[2019-10-05] MEDS: methylPREDNISolone 40 MG in SYRINGE 0 ML IV SCH (08:18)
[2019-10-05] MEDS: GABAPENTIN 400 MG CAP PO SCH ×3 (08:19→20:05)
[2019-10-05] MEDS: FINASTERIDE 5 MG TAB PO SCH (08:19)
[2019-10-05] MEDS: TAMSULOSIN HCL 0.4 MG CAP PO SCH (08:19)
[2019-10-05] MEDS: ASPIRIN 81 MG ECTAB PO SCH (08:19)
[2019-10-05] MEDS: DOCUSATE SODIUM/SENNA 50/8.6MG TAB PO SCH ×2 (08:19→20:05)
[2019-10-05] MEDS: POLYETHYLENE (MIRALAX) 17 GM PACK PO SCH (08:19)
[2019-10-05] MEDS: LACTOBACILLUS ACIDOPHILUS (FLORANEX) TAB PO SCH ×2 (08:20→20:08)
[2019-10-05] MEDS: DULOXETINE HCL 60 MG CAP PO SCH (08:20)
[2019-10-05] MEDS: FUROSEMIDE 80 MG TAB PO SCH ×3 (08:20→20:11)
[2019-10-05] MEDS: ISOSORBIDE MONO EXTENDED REL 30 MG TABCR PO SCH (08:20)
[2019-10-05] MEDS: POTASSIUM CHLORIDE 20 MEQ TABCR PO SCH ×2 (08:21→20:08)
[2019-10-05] MEDS: SPIRONOLACTONE 25 MG TAB PO SCH (08:21)
[2019-10-05] MEDS: METOPROLOL SUCC 50MG EXT REL TAB PO SCH ×2 (08:22→20:10)
[2019-10-05] MEDS: IPRATROPIUM BROMIDE/ALBUTEROL respimat INH INH SCH ×4 (08:22→20:01)
[2019-10-05] MEDS: PANTOprazole 40 MG TAB PO SCH (08:22)
[2019-10-05] MEDS: BUDESONIDE/FORMOTEROL FUMARATE 160/4.5 60 PUFFS/INHALER INH SCH ×2 (08:23→20:02)
[2019-10-05] MEDS: INSULIN ASPART 100 UNITS/ML 3 ML PEN SC SCH ×4 (08:28→20:13)
[2019-10-05] MEDS: INSULIN GLARGINE SOLOSTAR 100 UNITS/ML 3 ML PEN SC SCH ×2 (08:31→20:12)
[2019-10-05] MEDS ORDERED: POTASSIUM CHLORIDE 20 MEQ TABCR PO ONE (14:28)
[2019-10-05] MEDS ORDERED: WARFARIN SOD 7.5 MG TAB PO SCH (16:00)
[2019-10-05] MEDS: LIDOCAINE 2% JELLY 5 ML TUBE EXT SCH (17:56)
[2019-10-05] MEDS: CAPSAICIN CR 0.075% 60 GM TUBE EXT PRN (18:00)
--- NOTE | 2019-10-05 18:11 | Hospitalist Progress Note ---
Date of Service October 05, 2019 Assessment & Plan (1) Acute hypoxemic respiratory failure: Acute hypoxic respiratory failure Multifactorial:COPD and CHF exacerbation H/O steroid-dependent disease Ongoing tobacco abuse CXR:No significant change compared to the prior study. No acute process. IV Solu-medrol transition to prednisone Continue inhalers Completed doxycycline course Saturating well on room air Acute on chronic diastolic heart failure ? Home diuretic/diet/fluid restriction compliance IV diuretics transitioned to p.o. lasix Continue fluid restriction Monitor volume status, I/Os, daily weight Volume status improved MAHAMED Creatinine levels improved Hold Mobic for now Monitor renal function Avoid nephrotoxic agents as able Hypokalemia secondary to diuresis Replete as needed Chronic urinary incontinence Replaced Lloyd catheter Follow-up with urology as outpatient Hypertension stable Continue current medication H/O Recurrent PE Subtherapeutic INR--Now subtherapeutic Monitor INR:1.4 Coumadin--adjust dose as needed Continue IV heparin for now DM II suboptimal control as of recent hemoglobin A1c of July 2019 Was discharged on insulin during prior admission Continue insulin therapy while hospitalized Monitor BGs Chronic back pain Chronic opioid dependence Continue current medications Judicious narcotic use given respiratory issues and H/O drug dependence Ongoing tobacco abuse Counseled to quit on multiple occasions On Nicotine Patch Ambulatory dysfunction PT/OT eval DVT Px: Coumadin Continue IV heparin for now Code Status Full code Disposition Case management to help with discharge planning Subjective Patient is seen and examined at bedside Feels better today Renal function improved Had urinary catheter placement yesterday Reports chronic generalized pain Denies any chest pain, SOB Review of Systems Review of Systems: All systems reviewed & are unremarkable except as noted in HPI & below Physical Exam Physical Exam: Physical Exam: Vitals signs as noted above General Appearance:Morbidly obese, no apparent distress Head: normocephalic, Atraumatic Eyes: normal inspection, EOMI Neck: supple, Trachea midline Respiratory/Chest: Decreased breath sounds, scattered wheezes Cardiovascular: S1, S2, No murmur Abdomen/GI:Soft, Non tender, Bowel sounds present Extremities/Musculoskelatal:normal inspection, Trace pedal edema Neurologic/Psych:AAOX3, grossly no focal neurological deficits Skin: normal color, warm Results & Data Vital Signs (Past 12 Hours) Vital Signs Temp Pulse Pulse Resp BP BP Pulse Ox 10/05/19 17:50 36.9 C 82 20 122/64 93 10/05/19 12:10 36.8 C 84 18 157/74 H 93 10/05/19 08:06 36.5 C 71 21 144/79 H 96 10/05/19 08:00 67
[2019-10-05] MEDS: NITROGLYCERIN SL 0.4 MG/TAB TAB SL PRN ×2 (18:40→19:05)
[2019-10-05] MEDS ORDERED: methylPREDNISolone 40 MG in SYRINGE 0 ML IV ONE (19:45)
[2019-10-05] MEDS: NICOTINE 21 MG/24 HR TDSY TD SCH (20:03)
--- NOTE | 2019-10-05 20:05 | XRay Report ---
XR chest 1V portable HISTORY: 49 years-old Male SOB acute shortness of breath COMPARISON: Chest radiograph 09/27/2019 TECHNIQUE: Portable AP view the chest FINDINGS: Lateral the cardiac silhouette is unchanged. Stable left basilar atelectasis/scarring. No pneumothora x, large pleural effusion, focal airspace consolidation or overt pulmonary edema. Degenerative change s of the shoulders and spine. IMPRESSION: 1. Cardiomegaly without acute process. 2. Minimal scarring/atelectasis of the left lung base. ACT 112: Negative or not required by law. The above report was generated using voice recognition software. It may contain grammatical, syntax o r spelling errors. Electronically signed by: Kem Apodaca M.D. 10/05/2019 8:04 PM
[2019-10-05] MEDS: AMITRIPTYLINE HCL 50 MG TAB PO SCH (20:12)
[2019-10-05 23:51] LABS: Alanine Aminotransferase 40 U/L (12-78); Albumin Globulin Ratio 0.8 (0.9-2); Albumin Level 3.4 gm/dl (3.4-5.0); Alkaline Phosphatase 103 U/L (45-117); Aspartate Aminotransferase 14 U/L (15-37); BUN Creatinine Ratio 15.9 (10-20); Bilirubin,Total 0.6 mg/dl (0.2-1); Blood Urea Nitrogen 32 mg/dl (7-18); Carbon Dioxide 35 mmol/L (21-32); Chloride 94 mmol/L (98-107); Est GFR (African American) 44.1; Est GFR (Non-African American) 38.1; Globulin 4.2 gm/dl (2.5-4.0); Glucose 283 mg/dl (70-99); Lipase 97 U/L (73-393); Potassium 4.5 mmol/L (3.5-5.1); Sodium 133 mmol/L (136-145); Total Protein 7.6 gm/dl (6.4-8.2); Troponin I < 0.015 ng/ml (0-0.045)
[2019-10-06] MEDS: LORazepam 1 MG TAB PO PRN ×2 (00:18→09:50)
[2019-10-06] MEDS: HEPARIN SODIUM/DEXTROSE 25,000 UNITS/500 ML BAG IV SCH (00:22)
[2019-10-06] MEDS ORDERED: XOPENEX/ATROVENT 1.25mg/0.5MG NEB COMBO NEB STA (00:23)
[2019-10-06] MEDS: NITROGLYCERIN SL 0.4 MG/TAB TAB SL PRN ×4 (00:30→14:39)
[2019-10-06] MEDS ORDERED: IPRATROPIUM BROMIDE NEB SOLN 0.02% 2.5 ML VIAL INH STA (00:36)
[2019-10-06] MEDS ORDERED: LEVALBUTEROL 1.25MG/0.5ML NEB INH STA (00:36)
[2019-10-06] MEDS: OXYCODONE HCL IR 5 MG TAB (IMMEDIATE RELEASE) PO PRN ×4 (01:59→16:00)
[2019-10-06 08:25] LABS: INR 2.2 (0.9-1.1); Partial Thromboplastin Ratio 2.7; Prothrombin Time 21.4 Seconds (9.0-12.0)
[2019-10-06 08:30] LABS: Partial Thromboplastin Time 71.9 Seconds (21.0-31.0)
[2019-10-06 08:40] LABS: BUN Creatinine Ratio 23.5 (10-20); Calcium 10.6 mg/dl (8.5-10.1); Creatinine Clr Calc Pharmacy 109.4 ml/min; Est GFR (Non-African American) 55.2; Magnesium 2.9 mg/dl (1.8-2.4); Potassium 4.3 mmol/L (3.5-5.1)
[2019-10-06] MEDS ORDERED: predniSONE 20 MG TAB PO SCH (09:00)
[2019-10-06] MEDS: LACTOBACILLUS ACIDOPHILUS (FLORANEX) TAB PO SCH (09:16)
[2019-10-06] MEDS: DULOXETINE HCL 60 MG CAP PO SCH (09:16)
[2019-10-06] MEDS: SPIRONOLACTONE 25 MG TAB PO SCH (09:16)
[2019-10-06] MEDS: IPRATROPIUM BROMIDE/ALBUTEROL respimat INH INH SCH ×3 (09:17→16:03)
[2019-10-06] MEDS: TAMSULOSIN HCL 0.4 MG CAP PO SCH (09:18)
[2019-10-06] MEDS: CYCLOBENZAPRINE HCL 10 MG TAB PO SCH (09:18)
[2019-10-06] MEDS: ASPIRIN 81 MG ECTAB PO SCH (09:18)
[2019-10-06] MEDS: ISOSORBIDE MONO EXTENDED REL 30 MG TABCR PO SCH (09:19)
[2019-10-06] MEDS: FUROSEMIDE 80 MG TAB PO SCH ×2 (09:20→12:30)
[2019-10-06] MEDS: POTASSIUM CHLORIDE 20 MEQ TABCR PO SCH ×2 (09:20→17:26)
[2019-10-06] MEDS: FINASTERIDE 5 MG TAB PO SCH (09:21)
[2019-10-06] MEDS: GABAPENTIN 400 MG CAP PO SCH ×2 (09:21→12:30)
[2019-10-06] MEDS: PANTOprazole 40 MG TAB PO SCH (09:22)
[2019-10-06] MEDS: DOCUSATE SODIUM/SENNA 50/8.6MG TAB PO SCH (09:22)
[2019-10-06] MEDS: POLYETHYLENE (MIRALAX) 17 GM PACK PO SCH (09:23)
[2019-10-06] MEDS: METOPROLOL SUCC 50MG EXT REL TAB PO SCH (09:23)
[2019-10-06] MEDS: BUDESONIDE/FORMOTEROL FUMARATE 160/4.5 60 PUFFS/INHALER INH SCH (09:24)
[2019-10-06] MEDS: INSULIN ASPART 100 UNITS/ML 3 ML PEN SC SCH ×3 (09:26→17:19)
[2019-10-06] MEDS: PROMETHAZINE HCL 12.5 MG in SODIUM CHLORIDE 0.9% 50 ML IV PRN (09:50)
[2019-10-06] MEDS: INSULIN GLARGINE SOLOSTAR 100 UNITS/ML 3 ML PEN SC SCH (09:53)
--- NOTE | 2019-10-06 11:28 | Electrocardiogram Report ---
Test Reason : Blood Pressure : / mmHG Vent. Rate : 086 BPM Atrial Rate : 086 BPM P-R Int : 146 ms QRS Dur : 102 ms QT Int : 342 ms P-R-T Axes : 014 046 077 degrees QTc Int : 409 ms Normal sinus rhythm Diffuse Minor Nonspecific ST and T wave abnormality Abnormal ECG When compared with ECG of 28-SEP-2019 07:08, No significant change was found Confirmed by Da Browning ([id number]) on 10/06/2019 11:28:10 AM Referred By: REFERRED SELF Confirmed By:Da Browning
--- NOTE | 2019-10-06 12:53 | Hospitalist Progress Note ---
Date of Service October 06, 2019 Assessment & Plan (1) Acute hypoxemic respiratory failure: Acute hypoxic respiratory failure Multifactorial:COPD and CHF exacerbation H/O steroid-dependent disease Ongoing tobacco abuse CXR:No significant change compared to the prior study. No acute process. IV Solu-medrol transition to prednisone Continue inhalers Completed doxycycline course Saturating well on room air Plan to discharge on prednisone taper course Acute on chronic diastolic heart failure ? Home diuretic/diet/fluid restriction compliance IV diuretics transitioned to p.o. lasix Continue fluid restriction Monitor volume status, I/Os, daily weight Volume status improved to baseline MAHAMED Creatinine levels improved Hold Mobic for now Monitor renal function Avoid nephrotoxic agents as able Hypokalemia secondary to diuresis Replete as needed Chronic urinary incontinence Replaced Lloyd catheter Follow-up with urology as outpatient Hypertension stable Continue current medication H/O Recurrent PE Subtherapeutic INR--Now subtherapeutic Monitor INR:2.2 Continue Coumadin--adjust dose as needed IV heparin discontinued DM II suboptimal control as of recent hemoglobin A1c of July 2019 Was discharged on insulin during prior admission Continue insulin therapy while hospitalized Monitor BGs Chronic back pain Chronic opioid dependence Continue home medications Judicious narcotic use given respiratory issues and H/O drug dependence Requests to increase pain medications on multiple occasions during hospitalization Ongoing tobacco abuse Counseled to quit on multiple occasions On Nicotine Patch Ambulatory dysfunction PT/OT eval done DVT Px: Coumadin Code Status Full code Disposition Case management to help with discharge planning Home with Home Health Subjective Patient is seen and examined at bedside No new complaints INR is therapeutic Volume status much improved Reports chronic generalized pain Denies any chest pain, SOB, nausea, vomiting, abd pain Family at bedside Review of Systems Review of Systems: All systems reviewed & are unremarkable except as noted in HPI & below Physical Exam Physical Exam: Physical Exam: Vitals signs as noted above General Appearance:Morbidly obese, no apparent distress Head: normocephalic, Atraumatic Eyes: normal inspection, EOMI Neck: supple, Trachea midline Respiratory/Chest: Decreased breath sounds, Minimal wheezes Cardiovascular: S1, S2, No murmur Abdomen/GI:Soft, Non tender, Bowel sounds present Extremities/Musculoskelatal:normal inspection, Trace pedal edema Neurologic/Psych:AAOX3, grossly no focal neurological deficits Skin: normal color, warm Results & Data Vital Signs (Past 12 Hours) Vital Signs Temp Pulse Pulse Resp BP BP Pulse Ox 10/06/19 11:34 36.6 C 75 18 139/64 90 10/06/19 08:00 36.6 C 71 18 105/70 97 10/06/19 07:31 64 10/06/19 05:02 90 10/06/19 02:40 37.0 C 79 20 115/66 93 10/06/19 00:59 83 18 96 Laboratory Results [facility] 10/05/19 10/06/19 23:00 07:43 Sodium 133 L 133 L Potassium 4.5 D 4.3 Chloride 94 L 95 L Carbon Dioxide 35 H 34 H BUN 32 H 35 H Creatinine 2.00 H D 1.47 H D Glucose 283 H 200 H Calcium 10.0 10.6 H Cardiac Enzymes 10/05/19 Range/Units 23:00 Troponin I < 0.015 (0-0.045) ng/ml Liver Function 10/05/19 Range/Units 23:00 Total Bilirubin 0.6 (0.2-1) mg/dl AST 14 L (15-37) U/L ALT 40 (12-78) U/L Alkaline Phosphatase 103 (45-117) U/L Albumin 3.4 (3.4-5.0) gm/dl
[2019-10-06] MEDS: LIDOCAINE 2% JELLY 5 ML TUBE EXT SCH (15:54)
[2019-10-06] MEDS ORDERED: WARFARIN SOD 5 MG TAB PO SCH (16:00)
--- NOTE | 2019-10-06 16:42 | Discharge Summary ---
Date of Service October 06, 2019 Admission HPI Per Admitting Provider History obtained from patient and records. Medical history is significant for chronic diastolic heart failure (EF 60 to 65%, TTE 2019), hypertension, steroid-dependent COPD, recurrent PE on Coumadin, DM 2 diet-controlled, chronic pain on narcotics, mood disorder, chronic anemia baseline hemoglobin 9-10, BPH/chronic urinary retention indwelling Lloyd catheter, ongoing tobacco abuse. Recent confinement last month for decompensated heart failure. 2 days history of dry to moist cough symptoms along with shortness of breath, central chest pain with coughing. Thinks he may have gained 8 pounds the last few days despite compliance with diuretic Rx/fluid restriction. Some chills without fever. Patient also complaining of achy right-sided abdominal pain. Usual bowel movement. No headache symptoms. At the ER, patient noted to be hypoxemic. Given neb treatment and Solu-Medrol at the ER. Medical History as above Surgical History : Foot/toe surgery, nerve repair, hand surgery, scalp neck wound injury Family History : Breast cancer, heart disease, COPD Personal/Social history : One pack daily, no EtOH intake, disabled Admission Exam Per Admitting Provider Physical Exam Physical Exam: GENERAL: Comfortable, obese, looks older than stated age, no respiratory distress SKIN: Pallor, warm HEENT: Alopecia, pale palpebral conjunctivae, no ptosis, dry buccal mucosa NECK : Supple, short neck, no tenderness CHEST : Decreased breath sounds , no tenderness HEART : Tachycardic , no obvious murmurs ABDOMEN: distention, nontender EXTREMITIES : Superficial wounds on anterior surface of both lower legs, bilateral LE swelling with minimal LE tenderness, no other conspicuous deformities noted NEUROLOGIC : Coherent, no facial asymmetry, no other gross focality Principal Diagnosis Acute COPD exacerbation Acute CHF exacerbation Discharge Data Allergies Allergy/AdvReac Type Severity Reaction Status Date / Time fentanyl Allergy Intermediate RASH/HIVES/SKIN Verified 08/11/19 18:15 REDNESS acetaminophen AdvReac Intermediate Unknown Verified 09/28/19 16:06 valproic acid AdvReac Intermediate PANCREATITS Verified 08/11/19 18:15 Consultations 09/23/19 18:29 ED Decision to Admit Stat 09/23/19 21:43 Consult Case Management - Discharge Planning Routine Procedures Performed CXR:No significant change compared to the prior study. No acute process. CT ABD: 1. No bowel wall thickening or obstruction. 2. Moderate well-formed stool within the colon. 3. The bladder is decompressed by a Lloyd catheter. 4. Hepatic steatosis. 5. Right-sided nephrolithiasis. No hydronephrosis. Ordered Studies 09/23/19 20:19 CT abd pelvis IV con only Urgent Hospital Course (1) Acute hypoxemic respiratory failure: Acute hypoxic respiratory failure Multifactorial:COPD and CHF exacerbation H/O steroid-dependent disease Ongoing tobacco abuse CXR:No significant change compared to the prior study. No acute process. IV Solu-medrol transition to prednisone Continue inhalers Completed doxycycline course Saturating well on room air Plan to discharge on prednisone taper course Acute on chronic diastolic heart failure ? Home diuretic/diet/fluid restriction compliance IV diuretics transitioned to p.o. lasix Continue fluid restriction Monitor volume status, I/Os, daily weight Volume status improved to baseline MAHAMED Creatinine levels improved Hold Mobic for now Monitor renal function Avoid nephrotoxic agents as able Hypokalemia secondary to diuresis Replete as needed Chronic urinary incontinence Replaced Lloyd catheter Follow-up with urology as outpatient Hypertension stable Continue current medication H/O Recurrent PE Subtherapeutic INR--Now subtherapeutic Monitor INR:2.2 Continue Coumadin--adjust dose as needed IV heparin discontinued DM II suboptimal control as of recent hemoglobin A1c of July 2019 Was discharged on insulin during prior admission Continue insulin therapy while hospitalized Monitor BGs Chronic back pain Chronic opioid dependence Continue home medications Judicious narcotic use given respiratory issues and H/O drug dependence Requests to increase pain medications on multiple occasions during hospitalization --Patient informs that his significant other flushed the last pain medication prescription filled as per his instructions due to change in pain medicine dosage. Currently he has follow up appointment with pain management scheduled for next week. Explained on multiple occasions that it is important is important that he keeps his appointments and also explained the risks and consequences/complications of using pain medications. Patient understands and agrees to minimize pain medication use and to follow up with pain management as scheduled. Ongoing tobacco abuse Counseled to quit on multiple occasions On Nicotine Patch Ambulatory dysfunction PT/OT eval done DVT Px: Coumadin Code Status Full code Disposition Case management to help with discharge planning Home with Home Health Total Time Total Time Spent Total Time Spent (In Minutes): 45 minutes Total Time Includes: Examination of the Patient, Discharge Planning, Medication Reconciliation, Communication With Other Providers and Other Discharge Plan Discharge Items Patient Disposition: Home - Home Health Services Reason For Visit: RESP FAILURE Discharge Diagnosis: Acute COPD exacerbation Acute CHF exacerbation Activity: Resume your previous activity Exercise/Sports: Gradually increase as tolerated Non-emergency contact: Primary Care Provider and Specialist Call non-emergency contact if: you have any medication questions, your symptoms worsen, your pain is not controlled, your pain is worsening, your pain is unusual for you, your pain is concerning for you and you have a fever Follow-up/Referrals: Madina Pollock MD [Hospitalist] - 10/07/19 8:20 am (Clinic at [facility], 1st floor.) Sylwia De La Rosa MD [Primary Care Provider] - ([facility] October 13, 2019 at 7:45 am ) Diet: Carb Consistent or DM2 and Heart Healthy Fluids: 2000ml (8 cups) Ambulatory Orders: Basic Metabolic Panel (Routine) Timeframe: 1 Week Location: Determined by Patient Ordered By: Dipesh Arnett Attending Provider Instructions: Follow-up with your primary care physician in 1 week Follow-up with your pain specialist as scheduled Follow up with [facility] for monitoring your PT/INR and dosing of your Coumadin Follow-up with your Urologist as recommended Consider following up with your Mannequin Maker, Credit Risk Analyst as needed--- as per the recommendations of your primary care physician Take the prednisone course as prescribed Prednisone course: Take prednisone 30 mg for 3 days then 20 mg for 3 days then 10 mg for 3 days and then continue your home dose of 5mg daily Get blood test (basic metabolic panel) in 1 week and follow-up with your physician with results Quit smoking Tobacco as advised Call your Primary Care doctor if any of the following symptoms or problems start or get worse: * Shortness of breath or difficulty breathing * Wake up at night short of breath * Chest pain * Cough * Swelling of your hands, feet, or legs * More fatigued or tired with your normal activity * Palpitations - sudden fast heart beats WEIGHT * Weigh yourself every morning after using the bathroom. * Use the same scale. * Wear the same amount of clothing. * Write your weight down on a chart. * Call your Primary Care doctor if you gain more than 2-3 pounds in 1-2 days. MEDICATIONS * Use this discharge instruction sheet for medication instructions. * Take your medications at the time your doctor ordered. * Do not skip a dose of your medicines. * If you miss a dose of medicine, take it as soon as possible, but DO NOT DOUBLE A DOSE. * Read your medicine information when you get home. * Know all of the side effects of your medicine. If in doubt, ask your pharmacist * Call your Primary Care doctor's office if you have any side effects. * Be sure all of your doctors know what medicine and herbs you take (including cold, flu, and herbal medicine). Take the following with you to your follow-up doctor appointments: * Weight Chart * Medication List * List of questions Do not drink excessive alcohol, beer or wine. Pending Studies at Discharge: No Stand-Alone Forms: [employer], Smoking Cessation Medications and DC Order Prescriptions: New gabapentin 400 mg Capsule 400 mg PO TID 30 Days Qty: 90 RF: 0 amitriptyline 50 mg Tablet 50 mg PO HS 30 Days Qty: 30 RF: 0 prednisone 10 mg tablet 10 mg PO UD Qty: 18 RF: 0 oxycodone 15 mg tablet 15 mg PO Q12H PRN (Reason: pain) Qty: 12 RF: 0 Continued ondansetron 4 mg Tablet,Disintegrating 4 mg PO Q4H PRN (Reason: Nausea And Vomiting) RF: 0 polyethylene glycol 3350 [Miralax] 17 gram powder in packet 17 g PO Q24H PRN (Reason: Constipation) RF: 0 nitroglycerin [Nitrostat] 0.4 mg tablet, sublingual 0.4 mg Sublingual DIRECTED PRN (Reason: CHEST PAIN) RF: 0 nystatin 100,000 unit/gram Powder 1 applic TOPICAL BID PRN (Reason: Skin Irritation) RF: 0 omeprazole 20 mg capsule,delayed release(DR/EC) 20 mg PO QAM RF: 0 cyclobenzaprine 10 mg Tablet 10 mg PO BID RF: 0 ipratropium-albuterol 0.5 mg-3 mg(2.5 mg base)/3 mL Solution For Nebulization 3 ml INHALATION QID RF: 0 magnesium oxide 400 mg (241.3 mg magnesium) Tablet 400 mg PO BID RF: 0 Fleet Enema 19-7 gram/118 mL Enema 118 ml CO DAILY PRN (Reason: Constipation) RF: 0 docusate sodium 100 mg Capsule 100 mg PO BID RF: 0 Lactinex 1 million cell Tablet,Chewable 1 tab PO BID RF: 0 furosemide [Lasix] 80 mg Tablet 80 mg PO TID Qty: 0 RF: 0 hydroxyzine HCl 25 mg tablet 25 mg PO QID PRN (Reason: Anxiety) RF: 0 fluticasone propionate 50 mcg/actuation spray,suspension 2 spray Intranasal DAILY PRN (Reason: Allergy Symptoms) RF: 0 aspirin [Ecotrin Low Strength] 81 mg tablet,delayed release (DR/EC) 81 mg PO QAM RF: 0 duloxetine 60 mg capsule,delayed release(DR/EC) 60 mg PO DAILY RF: 0 Spiriva with HandiHaler 18 mcg capsule, w/inhalation device 1 puff inhalation DAILY RF: 0 finasteride 5 mg tablet 5 mg PO QAM RF: 0 tamsulosin [Flomax] 0.4 mg Capsule 0.4 mg PO DAILY RF: 0 albuterol sulfate [Ventolin HFA] 90 mcg/actuation HFA aerosol inhaler 2 puff inhalation Q4H PRN (Reason: Wheezing) RF: 0 lorazepam [Ativan] 1 mg tablet 1 mg PO TID PRN (Reason: Anxiety) RF: 0 potassium chloride 10 mEq tablet,ER particles/crystals 20 meq PO BID Qty: 30 RF: 0 metoprolol succinate 50 mg Tablet Extended Release 24 Hr 50 mg PO BID RF: 0 isosorbide mononitrate 30 mg Tablet Extended Release 24 Hr 30 mg PO DAILY RF: 0 prednisone 5 mg Tablet 5 mg PO DAILY RF: 0 spironolactone 25 mg Tablet 25 mg PO DAILY RF: 0 Breo Ellipta 200-25 mcg/dose Blister With Device 1 inh INHALATION DAILY RF: 0 benzonatate [Tessalon Perles] 100 mg capsule 100 mg PO DAILY PRN (Reason: Cough) RF: 0 warfarin 5 mg tablet 7.5 mg PO DIRECTED RF: 0 metformin 500 mg tablet extended release 24 hr 500 mg PO BID RF: 0 Discontinued gabapentin 300 mg Capsule 300 mg PO TID RF: 0 oxycodone 20 mg tablet 20 mg PO QID PRN (Reason: pain, severe) Qty: 28 RF: 0 Discharge Orders: Discharge Order (Routine); Ordered 10/06/19 Ordered By: Dipesh Wright Admission Data Admit Date/Time: 09/23/19 20:31 Attending Provider: Dipesh Wright Admit Provider: Waldemar Galarza Primary Care Provider: Sylwia De La Rosa Other Providers: Xu Silvestre ; Waldemar Galarza ; [facility]
== END 2019-10-06 18:51 | disposition home health service (06) | DRG 291 ==
LOC: ED 16:22 → SUATTDRO 20:31 → 2W 20:31

== ENCOUNTER 2019-10-18 19:42 | Observation (INO) ==
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
[2019-10-18 20:45] LABS: Basophils # (auto) 0.02 K/uL (0-0.2); Basophils % (auto) 0.2 %; Eosinophils # (auto) 0.34 K/uL (0-0.5); Eosinophils % (auto) 2.7 %; Hemoglobin 11.7 g/dL (14.0-18.0); Immature Granulocytes # (auto) 0.06 K/uL (0.00-0.02); Immature Granulocytes % (auto) 0.5 %; Lymphocytes # (auto) 2.96 K/uL (1.2-3.4); Lymphocytes % (auto) 23.3 %; Mean Corpuscular Hemoglobin 22.2 pg (25-34); Mean Corpuscular Hgb Conc 30.8 g/dL (32-36); Mean Corpuscular Volume 72.2 fL (80-100); Mean Platelet Volume 9.8 fL (7.4-10.4); Monocytes # (auto) 0.81 K/uL (0.11-0.59); Monocytes % (auto) 6.4 %; Neutrophils # (auto) 8.51 K/uL (1.4-6.5); Neutrophils % (auto) 66.9 %; Platelet Count 225 K/uL (130-400); RDW Coefficient of Variation 21.5 % (11.5-14.5); RDW Standard Deviation 55.8 fL (36.4-46.3); Red Blood Count 5.26 M/uL (4.7-6.1)
[2019-10-18 21:03] LABS: Alanine Aminotransferase 40 U/L (12-78); Aspartate Aminotransferase 17 U/L (15-37); BUN Creatinine Ratio 14.2 (10-20); Blood Urea Nitrogen 18 mg/dl (7-18); Calcium 8.8 mg/dl (8.5-10.1); Carbon Dioxide 36 mmol/L (21-32); Chloride 92 mmol/L (98-107); Est GFR (African American) 77.9; Est GFR (Non-African American) 67.2; Glucose 256 mg/dl (70-99); Lipase 103 U/L (73-393); Potassium 2.7 mmol/L (3.5-5.1); Sodium 133 mmol/L (136-145)
[2019-10-18 21:09] LABS: Anisocytosis Present; Spherocytes 1+
[2019-10-18 21:11] LABS: Partial Thromboplastin Ratio 2.2; Prothrombin Time 69.9 Seconds (9.0-12.0)
[2019-10-18 21:12] LABS: Base Excess VBG 10.9 mEq/L; HCO3 VBG 36 mmol/L; Oxygen Saturation VBG < 60.0 %; PCO2 VBG 51 mmHg (38-50); PO2 VBG 31 mmHg; pH VBG 7.47 (7.36-7.41)
[2019-10-18 21:14] LABS: INR 7.9 (0.9-1.1); Partial Thromboplastin Time 59.2 Seconds (21.0-31.0)
[2019-10-18] MEDS ORDERED: POTASSIUM CHLORIDE 10 MEQ TABCR PO STA ×2 (21:41→23:36)
[2019-10-18 21:47] LABS: Albumin Globulin Ratio 0.8 (0.9-2); Alkaline Phosphatase 135 U/L (45-117); Bilirubin,Total 0.5 mg/dl (0.2-1); Creatine Kinase 67 U/L (39-308); Creatine Kinase MB < 1.0 ng/ml (0.5-3.6); NT Pro B Type Natriuretic Pept 94 pg/ml (0-450); Troponin I < 0.015 ng/ml (0-0.045)
--- NOTE | 2019-10-18 23:01 | CT Scan Report ---
HEAD CT NONCONTRAST CT DOSE: 884.08 mGy.cm HISTORY: syncope TECHNIQUE: Multiaxial CT images of the head were performed without the use of intravenous contrast. A utomated exposure control was utilized for this study. A dose lowering technique was utilized adheri ng to the principles of ALARA. Comparison: Head CT 06/10/2019. Findings: Moderate mucosal thickening within the right maxillary sinus with partial opacification. Th is is likely chronic. Trace left mastoid effusion. The right mastoid air cells are clear. The calvari um and skull base are intact. The ventricles and sulci are within normal limits. There is no mass, he matoma, midline shift, or acute infarct. Impression: 1. No acute intracranial abnormality. 2. Chronic right maxillary sinusitis and a trace left mastoid effusion. ACT 112: Negative or not required by law. Electronically signed by: Vidal Keller M.D. 10/18/2019 11:00 PM
[2019-10-18] MEDS ORDERED: FUROSEMIDE 40 MG/4 ML VIAL IV STA (23:36)
[2019-10-18] MEDS ORDERED: METOPROLOL SUCC 50MG EXT REL TAB PO STA (23:49)
[2019-10-18] MEDS ORDERED: POTASSIUM CHLORIDE 20 MEQ TABCR PO STA (23:50)
[2019-10-18] MEDS ORDERED: PHYTONADIONE 5 MG TAB PO STA (23:51)
[2019-10-19] LABS: Magnesium 1.7 mg/dl (1.8-2.4)
[2019-10-19] MEDS ORDERED: ALBUMIN 25% 50 ML IV ONE (00:39)
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
[2019-10-19] MEDS ORDERED: NITROGLYCERIN SL 0.4 MG/TAB TAB SL PRN ×2 (01:59→03:09)
[2019-10-19] MEDS ORDERED: GLUCOSE 10 TABS/TUBE PO PRN (03:09)
[2019-10-19] MEDS ORDERED: DEXTROSE 50% 50 ML SYRINGE IV PRN (03:09)
[2019-10-19] MEDS ORDERED: SOD PHOSPHATE/SOD BIPHOSPHATE ENEMA 132 ML BTL PR PRN (03:09)
[2019-10-19] MEDS ORDERED: CARBOHYDRATES FOR HYPOGLYCEMIA PO PRN (03:09)
[2019-10-19] MEDS ORDERED: GLUCOSE 40% GEL 15 GM TUBE PO PRN (03:09)
[2019-10-19] MEDS ORDERED: GLUCAGON FOR INJ 1 MG VIAL SQ PRN (03:09)
[2019-10-19] MEDS ORDERED: ACETAMINOPHEN 325 MG TAB PO PRN (03:09)
[2019-10-19] MEDS ORDERED: INSULIN GLARGINE SOLOSTAR 100 UNITS/ML 3 ML PEN SC STA (03:09)
[2019-10-19] MEDS ORDERED: POTASSIUM CHLORIDE 10 MEQ TABCR PO STA (03:41)
[2019-10-19] MEDS: INSULIN ASPART 100 UNITS/ML 3 ML PEN SC SCH ×6 (03:58→20:56)
[2019-10-19] MEDS: NICOTINE 14 MG/24 HR PATCH TD SCH (04:00)
[2019-10-19] MEDS: OXYCODONE HCL IR 5 MG TAB (IMMEDIATE RELEASE) PO PRN ×2 (04:04→16:15)
[2019-10-19] MEDS: TRAMADOL HCL 50 MG TABLET PO PRN ×2 (06:06→12:34)
[2019-10-19] MEDS: METOPROLOL SUCC 25MG EXT REL TAB PO SCH ×2 (07:07→20:53)
[2019-10-19 07:25] LABS: Basophils # (auto) 0.05 K/uL (0-0.2); Basophils % (auto) 0.4 %; Eosinophils # (auto) 0.36 K/uL (0-0.5); Eosinophils % (auto) 3.2 %; Hematocrit (blood only) 37.1 % (42-52); Hemoglobin 11.4 g/dL (14.0-18.0); Immature Granulocytes # (auto) 0.06 K/uL (0.00-0.02); Immature Granulocytes % (auto) 0.5 %; Lymphocytes % (auto) 19.7 %; Mean Corpuscular Hemoglobin 21.6 pg (25-34); Mean Corpuscular Hgb Conc 30.7 g/dL (32-36); Mean Corpuscular Volume 70.3 fL (80-100); Mean Platelet Volume 10.4 fL (7.4-10.4); Monocytes # (auto) 1.08 K/uL (0.11-0.59); Monocytes % (auto) 9.7 %; Neutrophils # (auto) 7.41 K/uL (1.4-6.5); Neutrophils % (auto) 66.5 %; Platelet Count 185 K/uL (130-400); RDW Coefficient of Variation 21.5 % (11.5-14.5); RDW Standard Deviation 53.9 fL (36.4-46.3); Red Blood Count 5.28 M/uL (4.7-6.1); White Blood Count 11.16 K/uL (4.8-10.8)
[2019-10-19] MEDS: ASPIRIN 81 MG ECTAB PO SCH (07:54)
[2019-10-19] MEDS: ISOSORBIDE MONO EXTENDED REL 30 MG TABCR PO SCH (07:54)
[2019-10-19] MEDS: TAMSULOSIN HCL 0.4 MG CAP PO SCH (07:54)
[2019-10-19] MEDS: LACTOBACILLUS ACIDOPHILUS (FLORANEX) TAB PO SCH ×2 (07:54→20:53)
[2019-10-19] MEDS: FLUTICASONE/VILANTEROL 200/25MCG 14 PUFFS/INHALER INH SCH (07:54)
[2019-10-19] MEDS: DOCUSATE SODIUM 100 MG CAP PO SCH ×2 (07:54→20:52)
[2019-10-19] MEDS: CYCLOBENZAPRINE HCL 10 MG TAB PO SCH ×2 (07:54→20:52)
[2019-10-19] MEDS: UMECLIDINIUM BROMIDE 62.5MCG/BLISTER 7 PUFFS/INHALER INH SCH (07:54)
[2019-10-19] MEDS: DULOXETINE HCL 60 MG CAP PO SCH (07:54)
[2019-10-19] MEDS: GABAPENTIN 400 MG CAP PO SCH ×3 (07:55→20:52)
[2019-10-19] MEDS: PANTOprazole 40 MG TAB PO SCH (07:55)
[2019-10-19] MEDS: FINASTERIDE 5 MG TAB PO SCH (07:55)
[2019-10-19] MEDS: predniSONE 5 MG TAB PO SCH (07:55)
[2019-10-19 08:10] LABS: BUN Creatinine Ratio 12.2 (10-20); Blood Urea Nitrogen 14 mg/dl (7-18); Calcium 8.6 mg/dl (8.5-10.1); Carbon Dioxide 34 mmol/L (21-32); Chloride 95 mmol/L (98-107); Creatinine Clr Calc Pharmacy 136.8 ml/min; Est GFR (African American) 82.6; Est GFR (Non-African American) 71.3; Glucose 218 mg/dl (70-99); Magnesium 1.9 mg/dl (1.8-2.4); Potassium 2.9 mmol/L (3.5-5.1); Sodium 133 mmol/L (136-145); Troponin I < 0.015 ng/ml (0-0.045)
[2019-10-19 08:16] LABS: Anisocytosis Present; Microcytosis Present
[2019-10-19] MEDS ORDERED: METOPROLOL SUCC 50MG EXT REL TAB PO SCH (09:00)
[2019-10-19] MEDS ORDERED: PHARMACY GLYCEMIC MGMT CONSULT SCH (11:31)
--- NOTE | 2019-10-19 11:43 | Pharmacy Report ---
Glycemic Control Consultation - Date of Service October 19, 2019 - Scope Scope: Glycemic Pharmacist consulted by Dr Grace on 10/19/19 for glycemic control and to write orders per [facility] inpatient glycemic control protocol - Objective Weight: 205.6 kg Accuchecks BSG (last 24hrs): 10/18/19 10/19/19 10/19/19 20:35 03:15 06:05 Glucose 256 H POC Glucose 256 H 253 H 10/19/19 10/19/19 07:09 07:48 Glucose 218 H POC Glucose 250 H Laboratory Data (last 24hrs): 10/18/19 10/19/19 20:35 07:09 Potassium 2.7 L 2.9 L Carbon Dioxide 36 H 34 H Anion Gap 5.0 4.0 Creatinine 1.25 1.19 Est Cr Clr Drug Dosing 131.0 136.8 - Recent Pertinent Medications Outpatient Anti-diabetic Regimen: * Insulin Aspart 5 units daily? needs to be clarified with patient * A1c = 8 % 08/13/19 Risk Factors for Insulin Resistance: * Steroids: Prednisone 5mg PO daily (home dose) * Diet: NPO --> T2DM started with lunch - Assessment & Plan Assessment & Plan: ASSESSMENT: * 49 year old male admitted with CP and SOB, type 2 diabetic known to pharmacy glycemic service. * Patient on chronic steroids for COPD, not in acute exacerbation at this time, will be maintained on Prednisone 5mg PO daily at this time. * Will give patient basal bolus insulin while inpatient and titrate to goal. * ADA & AACE recommend a goal blood sugar range 140-180 mg/dl for the majority of critically ill & non-critically ill patients. However, more stringent targets may be selected in individual cases. Will utilize more stringent goal of 110-140mg/dl based on patient age & comorbidities. Additionally, tighter glycemic control is warranted to facilitate wound/infection healing. PLAN FOR INPATIENT GLYCEMIC CONTROL: * Basal insulin * Lantus 20 units SQ Daily * Bolus insulin * NovoLog per scale ACHS or Q6hrs while NPO * Goal Range: Low 110 mg/dL - High 140 mg/dL * Correction Factor: 20 mg/dL/unit * Nutritional / Prandial insulin per carb ratio of 1 unit per 7 grams CHO consumed * Please note that the plan above was derived based on current level of insulin resistance and hospital stress. These recommendations are appropriate for inpatient admission only. Plan of care upon discharge will need to be reassessed to avoid potential outpatient hypo/hyperglycemia. Thank you.
[2019-10-19 12:09] LABS: INR 4.4 (0.9-1.1); Prothrombin Time 40.3 Seconds (9.0-12.0)
[2019-10-19] MEDS: POTASSIUM CHLORIDE 20 MEQ TABCR PO SCH ×2 (12:35→16:16)
[2019-10-19] MEDS: LORazepam 1 MG TAB PO PRN ×2 (14:13→22:15)
--- NOTE | 2019-10-19 14:55 | Hospitalist Progress Note ---
Date of Service October 19, 2019 Assessment & Plan (1) Chest pain: chronic, echo repeat today, Relieved by nitroglycerin (2) Syncope: Episodes reported at home. Possibly may have been related to orthostatic hypotension vs chronic opioid use vs vasovagal syncope. Appears to be doing well today. No events on telemetry and echo is pending. (3) Orthostatic hypotension: Removed fluid restriction. While giving one time dose of Lasix now to help with ? weight gain, will hold on any fluids. Repeat qshift. (4) Elevated INR: Improved to 4.4 after PO vitamin K. Cont holding warfarin and trend INR. No active bleeding. (5) Opioid dependence: Recently seen by outpatient Pain Mngmt and new PCP, both whom do not approve of narcotics in this patient for pain control. Pain consult requested but denied. 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 Methadone is another option, however, we didn't discuss this today. Will institute a wean of his current narcotics starting with discontinuation of any tramadol today following by decrease of oxycodone to 10mg BID PRN x 3 days, then 5mg BID x 3 days, then stop. He remains on non- narcotic options for pain control including Cymbalta and gabapentin. I offered to go up on his gabapentin but he declined saying he has been on an increased dose in the past. He did not offer having any issues with the increased dose in the past. (6) Hypokalemia: Replace and repeat in am. Check Mag (7) Chronic anticoagulation: for h/o recurrent PE. Supratherapeutic INR. Plan as above. (8) DM type 2 (diabetes mellitus, type 2): On metformin at home. Cont basal bolus insulin with pharmacy managing (9) DVT prophylaxis: Supratherapeutic INR Full Code Dispo-possible home in am pending clinical improvement and Cardiology recommendations based on workup and time on telemetry. DO Gilda Saucedo Hospitalist Subjective Pt states feeling tired. Reports falling asleep while sitting in chair at home. Reports a h/o sleep study > 5 yrs ago that was reportedly negative. Still smoking at home. Orthostatics are positive today. Denies acute pain. Denies chest pain. Denies acute shortness of breath. Chronic Lloyd in place-uncertain reason? R leg wound in cesilia wrap with visible abrasion/nondraining ulceration present. Pt cannot give further history. We did discuss his narcotic use and the fact that his recent pain dr is recommending a wean off narcotics. This was after he lied to me and told me he wouldn't see him. I called the Pain [facility] and spoke with that provider's nurse who shared the plan with me. The patient then said he knew about the 6 month narcotic free period and the fact that he declined additional nonnarcotic pain options offered. 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 And went on, "I knew you guys would talk with him. I want to speak with Dr. Carter. He understands my pain and that I need narcotics. " I explained that I had touched base with his colleague, Dr. Cao, this morning and before I could respond he started yelling and saying "She hates me!" and on and on. I then tried to explain that Dr. Carter had recommended that he be given narcotics so long as there was an outpatient provider willing to pick him up and continue the script. However, that has not happened. He again demanded to see Dr. Carter. I told him that I feel this is the best and safest thing for him, and he continued to yell and scream. I left and told him I would be back in the morning and wished him some rest and a good night. We didn't get a chance to discuss the details of the wean. Review of Systems Review of Systems: All systems reviewed & are unremarkable except as noted in Subjective Physical Exam Physical Exam: CONSTITUTIONAL: obese, vitals as above, generally well- appearing EYES: normal conjunctivae, no scleral icterus ENT: MMM NECK: obese neck RESPIRATORY: clear to auscultation bilaterally, no crackles, rales or wheezes, normal respiratory effort CARDIOVASCULAR: regular rate and rhythm, S1 and 2 heard without murmurs, gallops or rubs, no JVD, no peripheral edema GASTROINTESTINAL: soft, nontender, protuberant with multiple skin folds. No guarding. MUSCULOSKELETAL: strength 5/5 throughout, head is normocephalic and atraumatic SKIN: warm and dry, RLE with small ? abrasion vs ulceration that is nondraining. Some erythroderma of the leg with scaling of the skin but no evidence of acute erythema surrounding the wound. NEUROLOGIC: CN 2-12 grossly intact, normal cognition, normal speech, no gross focal deficits. PSYCHIATRIC: alert cooperative and oriented to person, place and time. Results & Data ([facility]) Vital Signs (Past 12 Hours) Vital Signs Temp Pulse Pulse Resp BP Pulse Ox 10/19/19 08:00 97 H 10/19/19 07:13 36.9 C 90 18 125/79 94 10/19/19 05:27 114 H 10/19/19 03:00 36.8 C 112 H 20 148/83 H 92 Laboratory Results Short CBC 10/18/19 10/19/19 Range/Units 20:35 07:09 WBC 12.70 H 11.16 H (4.8-10.8) K/uL Hgb 11.7 L 11.4 L (14.0-18.0) g/dL Hct 38.0 L 37.1 L (42-52) % Plt Count 225 185 (130-400) K/uL BMP 10/18/19 10/19/19 20:35 07:09 Sodium 133 L 133 L Potassium 2.7 L 2.9 L Chloride 92 L 95 L Carbon Dioxide 36 H 34 H BUN 18 14 Creatinine 1.25 1.19 Glucose 256 H 218 H Calcium 8.8 8.6 Cardiac Enzymes 10/18/19 10/19/19 Range/Units 20:35 07:09 Total Creatine Kinase 67 (39-308) U/L CK-MB (CK-2) < 1.0 (0.5-3.6) ng/ml Troponin I < 0.015 < 0.015 (0-0.045) ng/ml Liver Function 10/18/19 Range/Units 20:35 Total Bilirubin 0.5 (0.2-1) mg/dl AST 17 (15-37) U/L ALT 40 (12-78) U/L Alkaline Phosphatase 135 H (45-117) U/L Albumin 3.0 L (3.4-5.0) gm/dl Medications Administered Current Inpatient Medications Acetaminophen (Tylenol) 650 mg PO Q4H PRN PRN Reason: Pain or Fever Stop: 11/18/19 03:08 Amitriptyline HCl (Elavil) [address] [facility] Stop: 11/18/19 20:59 Aspirin (Ecotrin Ectab) [address] [facility] Stop: 11/18/19 08:59 Last Admin: 10/19/19 07:54 Dose: 81 mg Documented by: Cyclobenzaprine HCl (Flexeril) [address] [facility] Stop: 11/18/19 08:59 Last Admin: 10/19/19 07:54 Dose: 10 mg Documented by: Dextrose (Dextrose 50%) 25 - 50 ml IV UD PRN; Protocol PRN Reason: Hypoglycemia Protocol Stop: 11/18/19 03:08 Docusate Sodium (Colace) [address] [facility] Stop: 11/18/19 08:59 Last Admin: 10/19/19 07:54 Dose: 100 mg Documented by: Duloxetine HCl (Cymbalta) [address] [facility] Stop: 11/18/19 08:59 Last Admin: 10/19/19 07:54 Dose: 60 mg Documented by: Finasteride (Proscar) [address] [facility] Stop: 11/18/19 08:59 Last Admin: 10/19/19 07:55 Dose: 5 mg Documented by: Fluticasone/Vilanterol (Breo Ellipta 200/25 Mcg Inh) [address] [facility] Stop: 11/18/19 08:59 Last Admin: 10/19/19 07:54 Dose: 1 puffs Documented by: Gabapentin (Neurontin) [address] [facility] Stop: 11/18/19 08:59 Last Admin: 10/19/19 14:11 Dose: 400 mg Documented by: Glucagon (Glucagen) 1 mg SQ UD PRN; Protocol PRN Reason: Hypoglycemia Protocol Stop: 11/18/19 03:08 Glucose (Dex4 Glucose) 4 - 8 tabs PO UD PRN; Protocol PRN Reason: Hypoglycemia Protocol Stop: 11/18/19 03:08 Glucose (Glucose 40%) 15 - 30 gm PO UD PRN; Protocol PRN Reason: Hypoglycemia Protocol Stop: 11/18/19 03:08 Hydroxyzine HCl (Vistaril) 25 mg PO QID PRN PRN Reason: Anxiety Stop: 11/18/19 03:08 Insulin Aspart (Novolog Flexpen) [address] [facility]; Protocol Stop: 11/18/19 13:44 Last Admin: 10/19/19 14:11 Dose: 10 units Documented by: Insulin Glargine (Lantus Solostar Pen) [address] [facility]; Protocol Stop: 11/19/19 08:59 Isosorbide Mononitrate (Imdur Extended Rel) [address] [facility] Stop: 11/18/19 08:59 Last Admin: 10/19/19 07:54 Dose: 30 mg Documented by: Lactobacillus Acidophilus (Floranex) [address] [facility] Stop: 11/18/19 08:59 Last Admin: 10/19/19 07:54 Dose: 4 tab Documented by: Lorazepam (Ativan) 1 mg PO TID PRN PRN Reason: Anxiety Stop: 11/18/19 03:08 Last Admin: 10/19/19 14:13 Dose: 1 mg Documented by: Metoprolol Succinate (Toprol Xl) [address] [facility] Stop: 11/18/19 05:44 Last Admin: 10/19/19 07:07 Dose: 75 mg Documented by: Miscellaneous (Carbohydrates For Hypoglycemia) 15 - 30 gm PO UD PRN PRN Reason: Hypoglycemia Protocol Stop: 11/18/19 03:08 Miscellaneous (Remove Nicoderm Patch) 1 ea N/A DAILY@0859 [facility] Stop: 11/19/19 08:58 Miscellaneous Information (Consult Glycemic Management Pharmacy) 1 ea N/A UD [facility] Stop: 11/18/19 11:30 Nicotine (Nicoderm Cq) 14 mg TD [facility] Stop: 11/18/19 03:29 Last Admin: 10/19/19 04:00 Dose: 14 mg Documented by: Nitroglycerin (Nitrostat) 0.4 mg SL UD PRN PRN Reason: Chest Pain Stop: 11/18/19 01:58 Oxycodone HCl (Roxicodone Immediate Rel) 15 mg PO Q12H PRN PRN Reason: pain Stop: 11/02/19 01:42 Last Admin: 10/19/19 04:04 Dose: 15 mg Documented by: Pantoprazole Sodium (Protonix) [address] [facility] Stop: 11/18/19 08:59 Last Admin: 10/19/19 07:55 Dose: 40 mg Documented by: Polyethylene Glycol (Miralax Powder Packet) 17 gm PO Q24H PRN PRN Reason: Constipation Stop: 11/18/19 03:08 Potassium Chloride (Klor-Con M20) [address] [facility] Stop: 10/19/19 17:31 Last Admin: 10/19/19 12:35 Dose: 40 meq Documented by: Prednisone (Prednisone) 5 mg PO DAILY [facility] Stop: 11/18/19 08:59 Last Admin: 10/19/19 07:55 Dose: 5 mg Documented by: Sodium Biphosphate/Sodium Phosphate (Fleet Enema) 132 ml [place] DAILY PRN PRN Reason: Constipation Stop: 11/18/19 03:08 Tamsulosin HCl (Flomax) 0.[address] [facility] Stop: 11/18/19 08:59 Last Admin: 10/19/19 07:54 Dose: 0.4 mg Documented by: Umeclidinium [place] (Incruse Ellipta) [address] [facility] Stop: 11/18/19 08:59 Last Admin: 10/19/19 07:54 Dose: 1 puffs Documented by: (1) Chest pain Chest pain type: unspecified Qualified Code(s): R07.9 - Chest pain, unspecified
[2019-10-19] MEDS ORDERED: PERFLUTREN LIPID MICROSPHERE (DEFINITY) IV ONE (15:09)
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
[2019-10-19] MEDS: POLYETHYLENE (MIRALAX) 17 GM PACK PO PRN (16:16)
--- NOTE | 2019-10-19 17:19 | Electrocardiogram Report ---
Test Reason : Blood Pressure : / mmHG Vent. Rate : 119 BPM Atrial Rate : 119 BPM P-R Int : 142 ms QRS Dur : 100 ms QT Int : 332 ms P-R-T Axes : 001 057 114 degrees QTc Int : 467 ms Sinus tachycardia Marked ST abnormality, possible lateral subendocardial injury Abnormal ECG When compared with ECG of 05-OCT-2019 18:24, ST no longer elevated in Inferior leads ST now depressed in Anterior leads T wave inversion now evident in Inferior leads T wave inversion more evident in Anterolateral leads Confirmed by Luan Escalante ([id number]) on 10/19/2019 5:19:00 PM Referred By: REFERRED SELF Confirmed By:Mark Escalante
[2019-10-19 18:54] LABS: Potassium 3.9 mmol/L (3.5-5.1)
[2019-10-19] MEDS ORDERED: AMITRIPTYLINE HCL 50 MG TAB PO SCH (21:00)
[2019-10-19] MEDS ORDERED: COUGH DROP (SUGAR FREE) LOZ 24 LOZ/1 BOX BUCCAL PRN (22:06)
[2019-10-19] MEDS ORDERED: COUGH DROP (SUGAR FREE) LOZ 24 LOZ/1 BOX BUCCAL ONE (22:11)
[2019-10-20] MEDS ORDERED: OXYCODONE HCL IR 5 MG TAB (IMMEDIATE RELEASE) PO PRN (06:00)
[2019-10-20 07:45] VITALS: TEMP 97.5
[2019-10-20 07:45] LABS: Hematocrit (blood only) 36.6 % (42-52); Hemoglobin 10.9 g/dL (14.0-18.0); Mean Corpuscular Hemoglobin 21.7 pg (25-34); Mean Corpuscular Hgb Conc 29.8 g/dL (32-36); Mean Corpuscular Volume 72.9 fL (80-100); Mean Platelet Volume 9.6 fL (7.4-10.4); Platelet Count 195 K/uL (130-400); RDW Coefficient of Variation 21.6 % (11.5-14.5); RDW Standard Deviation 56.5 fL (36.4-46.3); Red Blood Count 5.02 M/uL (4.7-6.1); White Blood Count 9.11 K/uL (4.8-10.8)
[2019-10-20 08:00] LABS: INR 3.2 (0.9-1.1); Prothrombin Time 29.9 Seconds (9.0-12.0)
[2019-10-20 08:09] LABS: BUN Creatinine Ratio 12.6 (10-20); Calcium 9.3 mg/dl (8.5-10.1); Creatinine Clr Calc Pharmacy 164.9 ml/min; Est GFR (African American) 103.2; Est GFR (Non-African American) 89.1; Magnesium 2.2 mg/dl (1.8-2.4); Potassium 3.4 mmol/L (3.5-5.1)
[2019-10-20] MEDS: UMECLIDINIUM BROMIDE 62.5MCG/BLISTER 7 PUFFS/INHALER INH SCH (08:18)
[2019-10-20] MEDS: METOPROLOL SUCC 25MG EXT REL TAB PO SCH (08:18)
[2019-10-20] MEDS: DOCUSATE SODIUM 100 MG CAP PO SCH (08:18)
[2019-10-20] MEDS: CYCLOBENZAPRINE HCL 10 MG TAB PO SCH (08:18)
[2019-10-20] MEDS: FINASTERIDE 5 MG TAB PO SCH (08:18)
[2019-10-20] MEDS: GABAPENTIN 400 MG CAP PO SCH ×2 (08:18→12:32)
[2019-10-20] MEDS: predniSONE 5 MG TAB PO SCH (08:18)
[2019-10-20] MEDS: NICOTINE 14 MG/24 HR PATCH TD SCH (08:18)
[2019-10-20] MEDS: ASPIRIN 81 MG ECTAB PO SCH (08:18)
[2019-10-20] MEDS: DULOXETINE HCL 60 MG CAP PO SCH (08:18)
[2019-10-20] MEDS: TAMSULOSIN HCL 0.4 MG CAP PO SCH (08:18)
[2019-10-20] MEDS: FLUTICASONE/VILANTEROL 200/25MCG 14 PUFFS/INHALER INH SCH (08:18)
[2019-10-20] MEDS: ISOSORBIDE MONO EXTENDED REL 30 MG TABCR PO SCH (08:18)
[2019-10-20] MEDS: LACTOBACILLUS ACIDOPHILUS (FLORANEX) TAB PO SCH (08:18)
[2019-10-20] MEDS: POLYETHYLENE (MIRALAX) 17 GM PACK PO PRN (08:19)
[2019-10-20] MEDS: LORazepam 1 MG TAB PO PRN (08:19)
[2019-10-20] MEDS: PANTOprazole 40 MG TAB PO SCH (08:19)
[2019-10-20] MEDS: INSULIN ASPART 100 UNITS/ML 3 ML PEN SC SCH ×2 (08:19→12:32)
--- NOTE | 2019-10-20 08:23 | Pharmacy Report ---
Pharmacy Glycemic Short Note 2 - Date of Service October 20, 2019 - Glycemic Short BSG Results (Last 24 hours): 10/19/19 10/19/19 10/19/19 11:32 16:42 19:52 Glucose POC Glucose 211 H 219 H 194 H 10/20/19 10/20/19 07:33 08:00 Glucose 171 H POC Glucose 180 H OUTPATIENT ANTIDIABETIC REGIMEN: * ASSESSMENT: 10/20/19 * Patient is currently receiving an average of 65 units of insulin per day * 20 units of basal insulin * 45 units of prandial/correctional insulin * BSGs ranging 171-219mg/dl over the past 24hrs * Anticipating insulin regimen will need increased for the next 24hrs d/t : * AM Fasting BSG = 180mg/dl therefore Basal insulin needs to be increased * Post-prandial BSGs are elevated/BSGs rise throughout the day therefore Tighten CR 10/19/19 * 49 year old male admitted with CP and SOB, type 2 diabetic known to pharmacy glycemic service. * Patient on chronic steroids for COPD, not in acute exacerbation at this time, will be maintained on Prednisone 5mg PO daily at this time. * Will give patient basal bolus insulin while inpatient and titrate to goal. * ADA & AACE recommend a goal blood sugar range 140-180 mg/dl for the majority of critically ill & non-critically ill patients. However, more stringent targets may be selected in individual cases. Will utilize more stringent goal of 110-140mg/dl based on patient age & comorbidities. Additionally, tighter glycemic control is warranted to facilitate wound/infection healing. PLAN FOR INPATIENT GLYCEMIC CONTROL: * Basal insulin - INCREASE * Lantus 25 units SQ Daily * Bolus insulin * NovoLog per scale ACHS or Q6hrs while NPO * Goal Range: Low 110 mg/dL - High 140 mg/dL * Correction Factor: 20 mg/dL/unit * TIGHTEN: Nutritional / Prandial insulin per carb ratio of 1 unit per 6 grams CHO consumed
[2019-10-20] MEDS ORDERED: INSULIN GLARGINE SOLOSTAR 100 UNITS/ML 3 ML PEN SQ SCH ×3 (09:00)
[2019-10-20] MEDS ORDERED: ALBUT/IPRATROP 3MG/0.5MG NEB 3 ML VIAL INH PRN (10:35)
[2019-10-20 11:41] VITALS: PULSE 95; O2SAT 95
[2019-10-20] MEDS ORDERED: SODIUM CHLORIDE 0.9% 1000ML 500 ML IV ONE (13:27)
--- NOTE | 2019-10-20 14:13 | Discharge Summary ---
Date of Service October 20, 2019 Admission HPI Per Admitting Provider History of Present Illness Chief Complaint: Shortness of breath, cough Primary Care Provider: Sylwia De La Rosa MD History obtained from patient and records. Medical history is significant for chronic diastolic heart failure (EF 60 to 65%, TTE 2019), hypertension, steroid-dependent COPD, recurrent PE on Coumadin, DM 2 insulin requiring, chronic pain on narcotics, mood disorder, chronic anemia baseline hemoglobin 9-10, BPH/chronic urinary retention indwelling Lloyd catheter, ongoing tobacco abuse. Recent confinement last month for 2 weeks ago for COPD exacerbation. Last few days, patient noted daily achy left-sided chest discomfort going to the arm with shortness of breath, intermittent relief with nitroglycerin. Chest pains severe at times causing him to pass out. No unusual cough symptoms. Patient retaining fluid despite compliance with medication regimen and fluid restriction. Patient brought by EMS to the ER. Medical History as above Surgical History : Foot/toe surgery, nerve repair, hand surgery, scalp neck wound injury Family History : Breast cancer, heart disease, COPD Personal/Social history : One pack daily, no EtOH intake, disabled Admission Exam Per Admitting Provider GENERAL: Comfortable, obese, looks older than stated age, no respiratory distress SKIN: Pallor, warm HEENT: Alopecia, pale palpebral conjunctivae, no ptosis, dry buccal mucosa, nasal cannula in place NECK : Supple, short neck, no tenderness CHEST : Decreased breath sounds , occasional expiratory wheezes, no tenderness HEART : Tachycardic , no obvious murmurs ABDOMEN: distention, no overt tenderness EXTREMITIES : Minimal LE swelling, chronic RLE tenderness, no other conspicuous deformities noted NEUROLOGIC : Coherent, no facial asymmetry, no other gross focality Principal Diagnosis Syncope 2/2 Orthostatic Hypotension Chronic stable angina Morbid Obesity Active tobacco use Opioid Use Disorder Uncontrolled DMII Discharge Data Allergies Allergy/AdvReac Type Severity Reaction Status Date / Time fentanyl Allergy Intermediate RASH/HIVES/SKIN Verified 10/18/19 21:21 REDNESS acetaminophen AdvReac Intermediate Unknown Verified 10/18/19 21:21 valproic acid AdvReac Intermediate PANCREATITS Verified 10/18/19 21:21 Consultations 10/18/19 23:47 ED Decision to Admit Stat 10/19/19 02:00 Consult Case Management - Discharge Planning Routine 10/19/19 03:09 Consult Cardiology Routine Ordered Studies 10/18/19 20:21 CT head/brain wo con Stat Hospital Course (1) Chest pain: (2) Syncope: (3) Orthostatic hypotension: (4) Elevated INR: (5) Opioid dependence: (6) Morbid obesity: (7) Hypokalemia: 49-year-old man presented to the ER reporting chest pain and recurrent syncope secondary to pain. He was admitted to the hospitalist service and monitored on telemetry. Cardiology was consulted regarding chest pain, which was chronic. Notably he had contacted the hospitalist group roofing contractor seeking additional narcotic prescriptions just prior to arrival, and had been declined for this request. Upon admission he was given narcotics. Telemetry review revealed sinus rhythm throughout his entire hospitalization. As he had a mild change in his EKG a limited echocardiogram was performed revealing no wall motion abnormality and normal ejection fraction. As he is over 450 pounds, volume status was very difficult to determine, but he examined as euvolemic. As he was reporting a 15 pound weight gain, cardiology did not see the downside to further diuresis and was considering 1 dose of IV Lasix. However this was not given as potassium was low and needed to be replaced. Additionally, orthostatics were positive and he was given 1 L of IV fluids. As a result of his orthostatic hypotension his diuretics were reduced at time of discharge. During his hospitalization he was weaned from narcotics. Pain management was formally consulted but declined to see the patient as they had no new recommendations to make in the matter. Plan of care was discussed with his outpatient pain manager book and records were reviewed from primary care revealing recommendations against use of narcotics. Specifically his pain manager book recommended a 6-month opiate free interval with proven monthly UDS screenings prior to consideration of any chronic opioid use under a pain contract. The patient was upset about this but compliant. At time of discharge she was hemodynamically stable and afebrile and tolerating p.o. He was mentating and ambulating at baseline. Outpatient event monitor was recommended for issue with recurrent syncope. Close primary care follow-up was recommended. The patient was strongly encouraged to quit smoking and to lose weight in an effort to decrease his chronic pain and improve his overall health. Total Time Total Time Spent Total Time Spent (In Minutes): 60 Total Time Includes: Examination of the Patient, Discharge Planning, Medication Reconciliation and Communication With Other Providers Discharge Plan Discharge Items Patient Disposition: Home - Home Health Services Reason For Visit: CHEST PAIN, SYNCOPE Discharge Diagnosis: Syncope 2/2 Orthostatic Hypotension Chronic stable angina Morbid Obesity Active tobacco use Opioid Use Disorder Uncontrolled DMII Condition on Discharge: Good Health Concerns: Strongly recommended to lose weight as obesity is contributing to many of your issues. Strongly recommended that you quit smoking completely as this is very bad for your health and the health of others around you. Activity: Resume your previous activity Non-emergency contact: Primary Care Provider Call non-emergency contact if: you have any medication questions, your symptoms worsen, your pain is not controlled, your pain is worsening, your pain is unusual for you, your pain is concerning for you and you have a fever Follow-up/Referrals: Sylwia De La Rosa MD [Primary Care Provider] - 10/25/19 10:05 am Diet: Carb Consistent or DM2 and Low Sodium (2gm) Addtl Attending Provider Instructions: Please take all medications as instructed on discharge list below. You are being placed on GLIPIZIDE which is a diabetic medication to control your blood sugar. This will need to be reviewed by Dr. Luevano to see if she agrees with this medication as a good long-term strategy and this can be done in follow-up. Please follow-up closely with your [facility] regarding getting control over your INR levels. It is recommended that you quit smoking as this is bad for your health. It is recommend that you institute new lifestyle changes to help you lose excess body fat and increase your lean muscle mass. It is recommended that you wean off of narcotics following this regimen: Oxycodone 10mg every 12 hrs x 2 days, then Oxycodone 5mg q12 hrs x 3 days, then stop. Regarding your recurrent syncope, please discuss this further with Dr. Luevano at follow-up to continue the workup as outpatient. It may be appropriate to undergo an event monitor for a period of time. While you were hospitalized, you were found to have a normal structure and function of your heart and there was no evidence of arrhythmias while you were here. It was a pleasure taking care of you! Please call if you have any questions or problems. You can reach a [facility] hospitalist on duty at [facility] 24 hours a day by calling [phone]. Take care of yourself. Mala Grace, DO [facility] Hospitalist Pending Studies at Discharge: No Stand-Alone Forms: My [facility] Mapbar, Smoking Cessation Medications and DC Order Prescriptions: New nicotine 7 mg/24 hr Patch 24 Hour 14 mg transdermal QAM Qty: 14 RF: 1 furosemide [Lasix] 40 mg tablet 40 mg PO BID 30 Days Qty: 60 RF: 0 glipizide 5 mg tablet 5 mg PO BID Qty: 60 RF: 1 Continued ondansetron 4 mg Tablet,Disintegrating 4 mg PO Q4H PRN (Reason: Nausea And Vomiting) RF: 0 polyethylene glycol 3350 [Miralax] 17 gram powder in packet 17 g PO Q24H PRN (Reason: Constipation) RF: 0 nitroglycerin [Nitrostat] 0.4 mg tablet, sublingual 0.4 mg Sublingual DIRECTED PRN (Reason: CHEST PAIN) RF: 0 nystatin 100,000 unit/gram Powder 1 applic TOPICAL BID PRN (Reason: Skin Irritation) RF: 0 omeprazole 20 mg capsule,delayed release(DR/EC) 20 mg PO QAM RF: 0 cyclobenzaprine 10 mg Tablet 10 mg PO BID RF: 0 ipratropium-albuterol 0.5 mg-3 mg(2.5 mg base)/3 mL Solution For Nebulization 3 ml INHALATION QID PRN (Reason: Shortness Of Breath Or Wheezing) RF: 0 magnesium oxide 400 mg (241.3 mg magnesium) Tablet 400 mg PO BID RF: 0 Fleet Enema 19-7 gram/118 mL Enema 118 ml NM DAILY PRN (Reason: Constipation) RF: 0 docusate sodium 100 mg Capsule 100 mg PO BID RF: 0 Lactinex 1 million cell Tablet,Chewable 1 tab PO BID RF: 0 hydroxyzine HCl 25 mg tablet 25 mg PO QID PRN (Reason: Anxiety) RF: 0 fluticasone propionate 50 mcg/actuation spray,suspension 2 spray Intranasal DAILY PRN (Reason: Allergy Symptoms) RF: 0 aspirin [Ecotrin Low Strength] 81 mg tablet,delayed release (DR/EC) 81 mg PO QAM RF: 0 duloxetine 60 mg capsule,delayed release(DR/EC) 60 mg PO DAILY RF: 0 Spiriva with HandiHaler 18 mcg capsule, w/inhalation device 1 puff inhalation DAILY RF: 0 finasteride 5 mg tablet 5 mg PO QAM RF: 0 tamsulosin [Flomax] 0.4 mg Capsule 0.4 mg PO DAILY RF: 0 albuterol sulfate [Ventolin HFA] 90 mcg/actuation HFA aerosol inhaler 2 puff inhalation Q4H PRN (Reason: Wheezing) RF: 0 lorazepam [Ativan] 1 mg tablet 1 mg PO TID PRN (Reason: Anxiety) RF: 0 potassium chloride 10 mEq tablet,ER particles/crystals 20 meq PO BID Qty: 30 RF: 0 metoprolol succinate 50 mg Tablet Extended Release 24 Hr 50 mg PO BID RF: 0 isosorbide mononitrate 30 mg Tablet Extended Release 24 Hr 30 mg PO DAILY RF: 0 prednisone 5 mg Tablet 5 mg PO DAILY RF: 0 spironolactone 25 mg Tablet 25 mg PO DAILY RF: 0 Breo Ellipta 200-25 mcg/dose Blister With Device 1 inh INHALATION DAILY RF: 0 benzonatate [Tessalon Perles] 100 mg capsule 100 mg PO DAILY PRN (Reason: Cough) RF: 0 warfarin 5 mg tablet 7.5 mg PO DIRECTED RF: 0 gabapentin 400 mg Capsule 400 mg PO TID 30 Days Qty: 90 RF: 0 amitriptyline 50 mg Tablet 50 mg PO HS 30 Days Qty: 30 RF: 0 Discontinued furosemide [Lasix] 80 mg Tablet 80 mg PO TID Qty: 0 RF: 0 oxycodone 15 mg tablet 15 mg PO Q12H PRN (Reason: pain) Qty: 12 RF: 0 insulin aspart U-100 [Novolog U-100 Insulin aspart] 100 unit/mL Solution 5 unit SUBCUT DAILY RF: 0 Lantus Solostar U-100 Insulin 5 units SC DAILY RF: 0 Discharge Orders: Discharge Order (Routine); Ordered 10/20/19 Ordered By: Mala Pickering/Other Patient Handouts: Hyperglycemia, Hypoglycemia, Diabetes Type 2 Coping, Diabetes Healthy Meals, Diabetes Meal Planning Admission Data Admit Date/Time: 10/19/19 01:42 Attending Provider: Mala Grace Admit Provider: Waldemar Galarza Primary Care Provider: Sylwia De La Rosa Other Providers: Miguel Angel eLe ; Mala Grace ; [facility] Other Interventions: Discharge Summary Assessment (RN) Last Done: 10/20/19 14:19 DC Date/Time DO NOT enter until pt leaves facility: 10/20/19 17:10
[2019-10-20 14:22] VITALS: BP 118/64
[2019-10-20] MEDS ORDERED: WARFARIN SOD 7.5 MG TAB PO SCH (16:00)
[2019-10-23] MEDS ORDERED: OXYCODONE HCL IR 5 MG TAB (IMMEDIATE RELEASE) PO PRN (06:00)
== END 2019-10-20 17:10 | disposition home health service (06) ==
LOC: ED 19:42 → 2W 19:42 → SUATTDRO 10-19 01:42 → 2W 10-19 02:50
DX: R07.89 Other chest pain; Z86.711 Personal history of pulmonary embolism; I11.0 Hypertensive heart disease with heart failure; I50.32 Chronic diastolic (congestive) heart failure; Z79.52 Long term (current) use of systemic steroids; E66.2 Morbid (severe) obesity with alveolar hypoventilation; E11.65 Type 2 diabetes mellitus with hyperglycemia; R06.02 Shortness of breath; Z88.5 Allergy status to narcotic agent; Z88.6 Allergy status to analgesic agent; E87.6 Hypokalemia; N40.0 Benign prostatic hyperplasia without lower urinary tract symptoms; J44.9 Chronic obstructive pulmonary disease, unspecified; Z79.01 Long term (current) use of anticoagulants; F17.210 Nicotine dependence, cigarettes, uncomplicated; E83.42 Hypomagnesemia; F11.20 Opioid dependence, uncomplicated; Z79.899 Other long term (current) drug therapy; I95.1 Orthostatic hypotension; Z79.4 Long term (current) use of insulin; Z68.44 Body mass index [BMI] 60.0-69.9, adult

== ENCOUNTER 2020-02-16 22:26 | Inpatient (IN) ==
[2020-02-16] MEDS ORDERED: FUROSEMIDE 40 MG TAB PO ONE (23:01)
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
[2020-02-16 23:58] LABS: Basophils # (auto) 0.03 K/uL (0-0.2); Basophils % (auto) 0.2 %; Eosinophils # (auto) 0.47 K/uL (0-0.5); Eosinophils % (auto) 3.8 %; Hematocrit (blood only) 41.5 % (42-52); Hemoglobin 13.1 g/dL (14.0-18.0); Immature Granulocytes # (auto) 0.02 K/uL (0.00-0.02); Immature Granulocytes % (auto) 0.2 %; Lymphocytes # (auto) 1.91 K/uL (1.2-3.4); Lymphocytes % (auto) 15.3 %; Mean Corpuscular Hemoglobin 23.7 pg (25-34); Mean Corpuscular Hgb Conc 31.6 g/dL (32-36); Mean Platelet Volume 10.1 fL (7.4-10.4); Monocytes # (auto) 0.79 K/uL (0.11-0.59); Monocytes % (auto) 6.3 %; Neutrophils # (auto) 9.28 K/uL (1.4-6.5); Neutrophils % (auto) 74.2 %; Platelet Count 276 K/uL (130-400); RDW Coefficient of Variation 20.8 % (11.5-14.5); RDW Standard Deviation 57.1 fL (36.4-46.3); Red Blood Count 5.53 M/uL (4.7-6.1)
[2020-02-17 00:16] LABS: Alanine Aminotransferase 26 U/L (12-78); Albumin Level 2.8 gm/dl (3.4-5.0); Aspartate Aminotransferase 13 U/L (15-37); BUN Creatinine Ratio 6.3 (10-20); Blood Urea Nitrogen 6 mg/dl (7-18); Calcium 9.4 mg/dl (8.5-10.1); Carbon Dioxide 29 mmol/L (21-32); Chloride 105 mmol/L (98-107); Creatinine Clr Calc Pharmacy 173.2 ml/min; Est GFR (African American) 109.9; Est GFR (Non-African American) 94.8; Glucose 107 mg/dl (70-99); Potassium 3.7 mmol/L (3.5-5.1); Sodium 137 mmol/L (136-145)
[2020-02-17 00:20] LABS: Albumin Globulin Ratio 0.7 (0.9-2); Alkaline Phosphatase 150 U/L (45-117); Bilirubin,Total 0.5 mg/dl (0.2-1); Globulin 4.3 gm/dl (2.5-4.0); NT Pro B Type Natriuretic Pept 87 pg/ml (0-450); Partial Thromboplastin Ratio 3.8; Prothrombin Time > 90.0 Seconds (9.0-12.0); Total Protein 7.1 gm/dl (6.4-8.2); Troponin I < 0.015 ng/ml (0-0.045)
[2020-02-17 00:26] LABS: Hypochromasia Present; Polychromasia 1+
[2020-02-17 00:30] LABS: INR > 9.7 (0.9-1.1); Partial Thromboplastin Time 105.2 Seconds (21.0-31.0)
[2020-02-17] MEDS ORDERED: HYDROmorphone INJ 0.5 MG/0.5 ML SYR IV STA (02:27)
[2020-02-17 03:00] LABS: Appearance Urine Cloudy (Clear); Bacteria Urine Automated 2+ (Negative); Bilirubin Urine Negative (Negative); Blood Urine 3+ (Negative); Cast Urine Automated 0 /lpf (0-5); Color Urine Yellow; Epithelial Cell Urine Auto 0-5 /lpf (0-5); Glucose Urine UA Negative (Negative); Ketones Urine Negative (Negative); Leukocyte Esterase Urine 3+ (Negative); Nitrite Urine Positive (Negative); Protein Urine Negative (Negative); RBC Urine Automated >30 /hpf (0-4); Urobilinogen Urine Negative (Negative); WBC Urine Automated >30 /hpf (0-5); pH Urine 6.5 (4.5-7.5)
[2020-02-17] MEDS ORDERED: FUROSEMIDE 40 MG/4 ML VIAL IV SCH (03:06)
[2020-02-17] MEDS ORDERED: FLUTICASONE PROPIONATE NA SPR 16 GM BTL PRN (03:06)
[2020-02-17] MEDS ORDERED: ALBUT/IPRATROP 3MG/0.5MG NEB 3 ML VIAL INH PRN (03:06)
[2020-02-17] MEDS ORDERED: NYSTATIN POWDER 15GM BTL EXT PRN (03:06)
[2020-02-17] MEDS ORDERED: ALBUTEROL HFA 8 GM INHALER INH PRN (03:06)
[2020-02-17] MEDS ORDERED: NITROGLYCERIN SL 0.4 MG/TAB TAB SL PRN ×2 (03:06)
[2020-02-17] MEDS ORDERED: BENZONATATE 100 MG CAPSULE PO PRN (03:06)
[2020-02-17] MEDS ORDERED: POLYETHYLENE (MIRALAX) 17 GM PACK PO PRN (03:06)
[2020-02-17] MEDS ORDERED: ACETAMINOPHEN 325 MG TAB PO PRN (03:06)
[2020-02-17] MEDS ORDERED: ONDANSETRON INJ 2 MG/ML 2 ML VIAL IV PRN (03:06)
[2020-02-17] MEDS ORDERED: PHYTONADIONE 5 MG TAB PO STA (03:06)
[2020-02-17] MEDS ORDERED: GLUCOSE 10 TABS/TUBE PO PRN (03:30)
[2020-02-17] MEDS ORDERED: DEXTROSE 50% 50 ML SYRINGE IV PRN (03:30)
[2020-02-17] MEDS ORDERED: CARBOHYDRATES FOR HYPOGLYCEMIA PO PRN (03:30)
[2020-02-17] MEDS ORDERED: GLUCAGON FOR INJ 1 MG VIAL SQ PRN (03:30)
[2020-02-17] MEDS ORDERED: GLUCOSE 40% GEL 15 GM TUBE PO PRN (03:30)
--- NOTE | 2020-02-17 03:51 | History and Physical Report ---
DATE OF ADMISSION: 02/17/2020 CHIEF COMPLAINT: Chest pain, abdominal pain, elevated INR. HISTORY OF PRESENT ILLNESS: This is a 49-year-old male with past medical history significant for right-sided heart failure, history of PE, on Coumadin, hypertension, COPD, chronic pain with opiate dependence, mood disorder, tobacco abuse, history of ESBL UTI, history of sepsis secondary to urinary tract infection, anemia, morbid obesity, noncompliant with medication and frequent hospitalizations. The patient also had traumatic subdural hematoma and subarachnoid hematoma in the setting of Coumadin use and was admitted at [facility] from 11/18/2019-12/04/2019. He was also recently treated for CHF and UTI. The patient has been restarted on Coumadin. He has chronic indwelling Lloyd catheter, last time he has had some hematuria, but patient was discharged on ampicillin for his enterococcus UTI. The patient says he is having on and off blood in his Lloyd, but currently it is clear. Complains of chest pain, somewhat different than his usual chest pains and also complains of right upper quadrant abdominal pain, severe in nature since last 2 days and was not getting better, not eating, appetite is down because of the abdominal pain and complains of nausea. Says he is somewhat constipated. He moved his bowels before he came to the hospital. He says his helps him wiping the bowel movement and she noticed some blood. Has his chronic cough on and off. Has chronic shortness of breath on exertion. He uses a cane to ambulate. Denies any fever, chills. He says smell of food and taste of food is not that great. Denies any headache, no blurred vision, no earache, no runny nose, no sore throat, no dysphagia. No rash. Requesting for pain medication. His INR is greater than 9 and patient says he wants to change the Coumadin to some of the newer medications. He says he gained weight about 17 pounds in the last few days. He says he is compliant with his medications. ALLERGIES: FENTANYL, IBUPROFEN, ACETAMINOPHEN, AND VALPROIC ACID. PAST MEDICAL HISTORY: As mentioned above. PAST SURGICAL HISTORY: History of appendectomy, history of colonoscopy; history of EGD, history of foot surgery, lumbar laminectomy. FAMILY HISTORY: Significant for sister has breast cancer. Mother had musculoskeletal disorder. Maternal grandfather has FL, maternal grandmother has FL. SOCIAL HISTORY: Lives with his family, smokes 1 pack a day for last 30 years, history of DUIs in the past, not currently drinking alcohol. The patient has dependence on prescribed pain medications. MEDICATIONS: The patient is on albuterol 2 puffs q. 4 hours p.r.n., amitriptyline 50 mg p.o. at bedtime, aspirin 81 mg p.o. a.m., atorvastatin 80 mg p.o. daily, benzonatate 100 mg p.o. t.i.d. p.r.n., Breo Ellipta 1 inhalation q.a.m., Combivent Respimat 1 puff inhalation q.i.d., cyclobenzaprine 10 mg p.o. b.i.d., Colace 100 mg p.o. b.i.d., duloxetine 60 mg p.o. daily, finasteride 5 mg p.o. a.m., Flonase 2 sprays intranasal daily p.r.n., folic acid 1 mg p.o. daily, Lasix 40 mg p.o. b.i.d., gabapentin 600 mg p.o. t.i.d., glipizide 5 mg p.o. b.i.d., hydroxyzine 25 mg p.o. q.i.d. p.r.n., DuoNebs q.i.d. p.r.n., isosorbide mononitrate 30 mg p.m., Lactinex 1 tablet p.o. b.i.d., lorazepam 0.5 mg p.o. t.i.d. p.r.n., magnesium oxide 400 mg p.o. daily, metoprolol succinate 50 mg p.o. b.i.d., Nitrostat 0.4 mg sublingual p.r.n., nystatin 1 application topically t.i.d. p.r.n., omeprazole 20 mg p.o. daily, oxycodone 5 mg p.o. q. 4 hours p.r.n., MiraLax 17 grams p.o. daily, potassium chloride 20 mEq p.o. b.i.d., Senokot 17.2 mg p.o. b.i.d., Spiriva with Handihaler 1 puff inhalation a.m., spironolactone 25 mg p.o. a.m., Flomax 0.4 mg p.o. a.m., Coumadin 5 mg p.o. daily. REVIEW OF SYMPTOMS: As per HPI. Rest of review of symptoms negative. PHYSICAL EXAMINATION: GENERAL: The patient is obese, currently not in acute distress. VITAL SIGNS: Temperature 37, pulse 84, respiratory rate 18, blood pressure 134/70, oxygen 97% on 2 liters. HEENT: No pallor. Pupils equal, round, reactive to light. NECK: No JVD, no neck masses. CARDIOVASCULAR: S1, S2 heard, regular rate and rhythm, no murmur, no gallop. RESPIRATORY SYSTEM: Normal AP diameter. Clear to auscultation bilaterally. No accessory muscle use. Mild bilateral crackles heard. No wheezing. ABDOMEN: Soft, bowel sounds sluggish. Right upper quadrant tenderness present, no guarding, no rigidity. No distention. CENTRAL NERVOUS SYSTEM: Cranial nerves II-XII grossly intact, nonfocal. EXTREMITIES: Bilateral lower extremity gross edema present and chronic skin changes seen. LABORATORIES DATA: WBC 12.5, hemoglobin 13.1, hematocrit 41.5, platelets 276. PT greater than 90, INR greater than 9.7, APTT 105.2. Sodium 137, potassium 3.7, chloride 105, bicarbonate 29, BUN 6, creatinine 0.9, serum glucose 107, calcium 9.4, total bilirubin 0.5, AST 13, ALT 26, alkaline phosphatase 150. Troponin I less than 0.015. BNP 87. Chest x-ray, mild congestion. EKG: Normal sinus rhythm at a rate of 90, no significant change was found. ASSESSMENT AND PLAN: This is a 49-year-old male who presents with chest pain, abdominal pain and elevated PT/INR. 1. Chest pain. The patient has chronic chest pains. He says this is different. EKG is unremarkable. Troponin negative. We will observe in med/surg tele. Serial enzymes. If any concerns, we will get echo and cardiac consult. 2. Right upper quadrant abdominal pain: He had right upper quadrant abdominal ultrasound which was unremarkable on last admission. We will get a CT scan and monitor. 3. Elevated INR 9.6. We will hold Coumadin, will give vitamin K 7.5 mgpo and iv 2.5mg. Follow the levels, question of GI bleed as per the patient and also hematuria as per the patient but currently Lloyd bag is clear. We will follow stool Hemoccult.hb stable. 3. Acute on chronic right sided heart failure, diastolic congestive heart failure. The patient gained about 17 pounds. He says he has been compliant with his medications. We will place him on IV Lasix 40 b.i.d. Continue his home Toprol-XL, isosorbide mononitrate and spironolactone. Monitor the response. 4. History of BPH: continue Flomax and finasteride. 5. Diabetes. Hold p.o. medication, place insulin sliding scale. Follow his blood sugars. 6. Chronic obstructive pulmonary disease: Continue home nebs and inhalers. 7. Chronic indwelling Lloyd catheter recently finished antibiotic course for urinary tract infection, needs follow up with Urology. 8. Hypertension. Continue home medication, will monitor his blood pressure. 9. Morbid obesity, needs counseling. 10. Deep venous thrombosis prophylaxis. INR is supratherapeutic. 11. History of recent subdural and subarachnoid hemorrhage: Was admitted to [place] and currently restarted his Coumadin. DISPOSITION: Admit to med/surg tele. Expect discharge home and follow with his family doctor. Level 1 full code. MTDD
[2020-02-17] MEDS: FUROSEMIDE 40 MG in SYRINGE 0 ML IV SCH ×4 (03:52→17:08)
[2020-02-17] MEDS ORDERED: OXYCODONE HCL IR 5 MG TAB (IMMEDIATE RELEASE) PO STA (04:03)
[2020-02-17] MEDS: OXYCODONE HCL IR 5 MG TAB (IMMEDIATE RELEASE) PO PRN ×5 (04:16→22:03)
[2020-02-17] MEDS ORDERED: PHYTONADIONE 2.5 MG in SODIUM CHLORIDE 0.9% 50 ML IV ONE (05:42)
[2020-02-17] MEDS ORDERED: bisacodyL 10 MG SUPP PR STA (06:34)
[2020-02-17] MEDS ORDERED: LACTULOSE SYRUP 30 GM/45 ML UDP PO STA (06:34)
--- NOTE | 2020-02-17 07:24 | XRay Report ---
XR chest 1V portable CLINICAL HISTORY: Atypical chest pain COMPARISON STUDY: 01/02/2020 FINDINGS: The heart is enlarged. There is mild central vascular prominence. Trace pleural effusions a re suspected. There is a density at the level left cardiophrenic angle, likely secondary to a fat pad .[ IMPRESSION: 1. Cardiomegaly and radiographic evidence of mild pulmonary vascular congestion. Suspected trace pleu ral effusions. No evidence of lobar consolidation ACT 112: Negative or not required by law. Electronically signed by: Luis Castro M.D. 02/17/2020 7:23 AM
--- NOTE | 2020-02-17 07:46 | CT Scan Report ---
CT SCAN OF THE ABDOMEN AND PELVIS WITHOUT CONTRAST CLINICAL HISTORY: Right upper quadrant abdominal pain COMPARISON STUDY: 01/31/2020, ultrasound study dated 02/03/2020 TECHNIQUE: CT scan of the abdomen and pelvis was performed from the lung bases to the proximal femurs . Images are reviewed in the axial, sagittal, and coronal planes. IV contrast was not administered fo r this examination. A dose lowering technique was utilized adhering to the principles of ALARA. CT DOSE: 4229.03 mGy.cm FINDINGS: Lower chest: There are basilar atelectatic changes. Liver: There is hepatic steatosis. No focal masses are visualized. Gallbladder: Unremarkable. Spleen: Normal in size and attenuation. Pancreas: Unremarkable. Adrenal glands: Unremarkable. Kidneys: There is a nonobstructing 4 mm right renal calculus. No ureteral or bladder calculi are visu alized. Bowel: There are no transition zones to indicate bowel obstruction. There are scattered colonic diver ticula. There is no evidence of acute diverticulitis. The patient appears be status post a prior appe ndectomy. There is mild fecal retention. Peritoneum: There is no intraperitoneal free air or abdominal ascites. There is a fat-containing umbi lical hernia Vasculature: The abdominal aorta is normal in course and caliber. Adenopathy: None. Pelvic viscera: There is a droplet of air within the bladder, likely iatrogenic. There is an indwelli ng Lloyd catheter. Skeletal structures: There is a mild superior endplate L1 compression fracture unchanged from the toi or study IMPRESSION: 1. No evidence of bowel obstruction. No evidence of free air 2. Nonobstructing right renal calculus 3. No evidence of acute appendicitis. No evidence of acute diverticulitis. 4. Mild fecal retention 5. Small fat-containing umbilical hernia ACT 112: Negative or not required by law. Electronically signed by: Luis Castro M.D. 02/17/2020 7:45 AM
[2020-02-17] MEDS ORDERED: IPRATROPIUM BROMIDE/ALBUTEROL respimat INH INH PRN (09:00)
[2020-02-17] MEDS: SENNA 8.6 MG TAB PO SCH ×2 (09:04→20:30)
[2020-02-17] MEDS: SPIRONOLACTONE 25 MG TAB PO SCH (09:06)
[2020-02-17] MEDS: PANTOprazole 40 MG TAB PO SCH (09:07)
[2020-02-17] MEDS: CYCLOBENZAPRINE HCL 10 MG TAB PO SCH ×2 (09:07→20:39)
[2020-02-17] MEDS: LACTOBACILLUS ACIDOPHILUS (FLORANEX) TAB PO SCH ×2 (09:07→20:33)
[2020-02-17] MEDS: METOPROLOL SUCC 50MG EXT REL TAB PO SCH ×2 (09:07→20:31)
[2020-02-17] MEDS: FOLIC ACID 1 MG TAB PO SCH (09:07)
[2020-02-17] MEDS: MAGNESIUM OXIDE 400 MG TAB PO SCH (09:07)
[2020-02-17] MEDS: TAMSULOSIN HCL 0.4 MG CAP PO SCH (09:08)
[2020-02-17] MEDS: DOCUSATE SODIUM 100 MG CAP PO SCH ×2 (09:08→20:31)
[2020-02-17] MEDS: UMECLIDINIUM BROMIDE 62.5MCG/BLISTER 7 PUFFS/INHALER INH SCH (09:08)
[2020-02-17] MEDS: ISOSORBIDE MONO EXTENDED REL 30 MG TABCR PO SCH (09:08)
[2020-02-17] MEDS: GABAPENTIN 300 MG CAP PO SCH ×3 (09:08→20:30)
[2020-02-17] MEDS: ASPIRIN 81 MG ECTAB PO SCH (09:09)
[2020-02-17] MEDS: DULOXETINE HCL 60 MG CAP PO SCH (09:09)
[2020-02-17] MEDS: FLUTICASONE/VILANTEROL 200/25MCG 14 PUFFS/INHALER INH SCH (09:10)
[2020-02-17] MEDS: POTASSIUM CHLORIDE 20 MEQ TABCR PO SCH ×2 (09:10→20:32)
[2020-02-17] MEDS: POLYETHYLENE (MIRALAX) 17 GM PACK PO SCH (09:10)
[2020-02-17] MEDS: FINASTERIDE 5 MG TAB PO SCH (09:10)
[2020-02-17] MEDS: ATORVASTATIN 40 MG TAB PO SCH (09:10)
[2020-02-17] MEDS: INSULIN ASPART 100 UNITS/ML 3 ML PEN SC SCH ×4 (09:12→20:28)
--- NOTE | 2020-02-17 13:58 | Hospitalist Progress Note ---
Date of Service February 17, 2020 Assessment & Plan (1) Acute on chronic diastolic heart failure: Came in with 17 pounds weight gain since the last month Chest x-ray did show congestive changes Noted to have increasing leg edema Started with intravenous Lasix 40 mg twice daily No acute symptoms (2) Left-sided chest pain: Left-sided chest pain No EKG changes and troponins are not elevated Likely noncardiac (3) History of pulmonary embolism: On Coumadin Came out with supratherapeutic INR of more than 9 Received intravenous vitamin K in the ER Coumadin is on hold Monitor INR (4) DM type 2 (diabetes mellitus, type 2): We will put him on sliding scale insulin coverage (5) COPD (chronic obstructive pulmonary disease): Has COPD with history of respiratory failure No acute exacerbation at this time (6) Chronic pain disorder: History of chronic pain disorder involving the back pain with radiation Pain in the right leg and pain secondary to diabetic neuropathy History of narcotic dependence Will increase oral pain medication just for a day or 2 while in the hospital We will discharge on current outpatient dose of narcotic We will make an appointment with outpatient pain therapist and primary care provider on discharge Other significant medical conditions remained stable DVT prophylaxis Has been on Coumadin and INR is supratherapeutic CODE STATUS Full Likely discharge on Wednesday or Wednesday Admission and Anticipated Discharge Date Admission Date: February 17, 2020 Subjective The patient was seen and examined in medical telemetry unit He was admitted yesterday with increasing weight gain, increasing back and leg pain and increased INR of more than 9 He complains to have lots of pain this morning especially at the back and radiation to the leg Denies any chest pain or palpitation Generally weak and lethargic Review of Systems Review of Systems: All systems reviewed and are unremarkable except as noted below Musculoskeletal: + back pain (With radiation to legs) and + joint pain (Right leg) Physical Exam Physical Exam: Lying in bed with moderate distress due to pain Constitutional: well developed, well nourished, + acute distress (Back pain), + ill appearing and + morbidly obese Eyes: PERRL, conjunctivae normal, anicteric sclerae ENMT: external ear and nose normal, oropharynx normal Neck: trachea midline, no thyromegaly Respiratory: normal respiratory effort; no respiratory distress Auscultation: + diminished lung sounds and + crackles (Minimal to no crackles at the bases) Cardiovascular: Rate/Rhythm: regular rate and regular rhythm Heart Sounds: no murmur Gastrointestinal (Abdomen): Inspection/Auscultation: + abdomen distended and normal bowel sounds Percussion/Palpation: abdomen soft; abdomen nontender Musculoskeletal: Back pain with movement of the legs Neurologic: moves all extremities; no focal motor deficits Lymphatic: no cervical or axillary lymphadenopathy Results & Data Results & Data ([facility]) Vital Signs (Past 12 Hours) Vital Signs Temp Pulse Pulse Resp BP BP Pulse Ox 02/17/20 07:41 37.0 C 91 H 18 129/81 94 02/17/20 07:19 85 02/17/20 05:56 108 H 02/17/20 03:06 02/17/20 02:45 36.9 C 101 H 20 164/83 H 93 02/17/20 02:35 84 18 134/70 97 02/17/20 02:00 88 12 111/66 95 Pulse Ox 02/17/20 07:41 02/17/20 07:19 02/17/20 05:56 02/17/20 03:06 93 02/17/20 02:45 02/17/20 02:35 02/17/20 02:00 Laboratory Results Short CBC 02/16/20 Range/Units 23:40 WBC 12.50 H (4.8-10.8) K/uL Hgb 13.1 L (14.0-18.0) g/dL Hct 41.5 L (42-52) % Plt Count 276 (130-400) K/uL BMP 02/16/20 23:40 Sodium 137 Potassium 3.7 Chloride 105 Carbon Dioxide 29 BUN 6 L Creatinine 0.94 Glucose 107 H Calcium 9.4 Cardiac Enzymes 02/16/20 02/17/20 Range/Units 23:40 05:48 Troponin I < 0.015 < 0.015 (0-0.045) ng/ml Liver Function 02/16/20 Range/Units 23:40 Total Bilirubin 0.5 (0.2-1) mg/dl AST 13 L (15-37) U/L ALT 26 (12-78) U/L Alkaline Phosphatase 150 H (45-117) U/L Albumin 2.8 L (3.4-5.0) gm/dl Urine 02/17/20 Range/Units 02:43 Urine Color Yellow Urine Appearance Cloudy A (Clear) Urine pH 6.5 (4.5-7.5) Ur Specific [place] 1.010 (1.000-1.030) Urine Protein Negative (Negative) Urine Glucose (UA) Negative (Negative) Medications Administered Current Inpatient Medications Acetaminophen (Tylenol) 650 mg PO Q4H PRN PRN Reason: Pain or Fever Stop: 03/18/20 03:05 Albuterol (Ventolin Hfa) 2 puffs INH Q4 PRN PRN Reason: Dyspnea Stop: 03/18/20 03:05 Albuterol (Duoneb) 3 ml INH QID PRN PRN Reason: Shortness Of Breath Or Wheezing Stop: 03/18/20 03:05 Albuterol (Combivent Respimat) 1 puffs INH QID PRN PRN Reason: Shortness Of Breath Stop: 03/18/20 08:59 Amitriptyline HCl (Elavil) 50 mg PO HS [facility] Stop: 03/18/20 20:59 Aspirin (Ecotrin Ectab) 81 mg PO QAM EMPERATRIZ Stop: 03/18/20 08:59 Last Admin: 02/17/20 09:09 Dose: 81 mg Documented by: Atorvastatin Calcium (Lipitor) 80 mg PO DAILY [facility] Stop: 03/18/20 08:59 Last Admin: 02/17/20 09:10 Dose: 80 mg Documented by: Benzonatate (Tessalon Perle) 100 mg PO TID PRN PRN Reason: Cough Stop: 03/18/20 03:05 Cyclobenzaprine HCl (Flexeril) 10 mg PO BID [facility] Stop: 03/18/20 08:59 Last Admin: 02/17/20 09:07 Dose: 10 mg Documented by: Dextrose (Dextrose 50%) 25 - 50 ml IV UD PRN; Protocol PRN Reason: Hypoglycemia Protocol Stop: 03/18/20 03:29 Docusate Sodium (Colace) 100 mg PO BID [facility] Stop: 03/18/20 08:59 Last Admin: 02/17/20 09:08 Dose: 100 mg Documented by: Duloxetine HCl (Cymbalta) 60 mg PO DAILY EMPERATRIZ Stop: 03/18/20 08:59 Last Admin: 02/17/20 09:09 Dose: 60 mg Documented by: Finasteride (Proscar) 5 mg PO QAM EMPERATRIZ Stop: 03/18/20 08:59 Last Admin: 02/17/20 09:10 Dose: 5 mg Documented by: Fluticasone Propionate (Flonase) 2 sprays NA DAILY PRN PRN Reason: Allergy Symptoms Stop: 03/18/20 03:05 Fluticasone/Vilanterol (Breo Ellipta 200/25 Mcg Inh) 1 puffs INH QAM [facility] Stop: 03/18/20 08:59 Last Admin: 02/17/20 09:10 Dose: 1 puffs Documented by: Folic Acid (Folvite) 1 mg PO DAILY [facility] Stop: 03/18/20 08:59 Last Admin: 02/17/20 09:07 Dose: 1 mg Documented by: Gabapentin (Neurontin) 600 mg PO TID [facility] Stop: 03/18/20 08:59 Last Admin: 02/17/20 09:08 Dose: 600 mg Documented by: Glucagon (Glucagen) 1 mg SQ UD PRN; Protocol PRN Reason: Hypoglycemia Protocol Stop: 03/18/20 03:29 Glucose (Glucose 40%) 15 - 30 gm PO UD PRN; Protocol PRN Reason: Hypoglycemia Protocol Stop: 03/18/20 03:29 Glucose (Dex4 Glucose) 4 - 8 tabs PO UD PRN; Protocol PRN Reason: Hypoglycemia Protocol Stop: 03/18/20 03:29 Hydroxyzine HCl (Vistaril) 25 mg PO QID PRN PRN Reason: Anxiety Stop: 03/18/20 03:05 Furosemide 40 mg/ Syringe 4 mls @ 4 mls/min IV BID17 EMPERATRIZ Stop: 03/18/20 08:59 Last Admin: 02/17/20 09:09 Dose: 4 mls/min Documented by: Insulin Aspart (Novolog Flexpen) 0 units SC ACHS [facility] Stop: 03/18/20 07:29 Last Admin: 02/17/20 12:33 Dose: 8 units Documented by: Isosorbide Mononitrate (Imdur Extended Rel) 30 mg PO QAM [facility] Stop: 03/18/20 08:59 Last Admin: 02/17/20 09:08 Dose: 30 mg Documented by: Lactobacillus Acidophilus (Floranex) 1 tab PO BID [facility] Stop: 03/18/20 08:59 Last Admin: 02/17/20 09:07 Dose: 1 tab Documented by: Lorazepam (Ativan) 0.5 mg PO TID PRN PRN Reason: Anxiety Stop: 03/18/20 03:05 Magnesium Oxide (Mag-Ox) 400 mg PO DAILY [facility] Stop: 03/18/20 08:59 Last Admin: 02/17/20 09:07 Dose: 400 mg Documented by: Metoprolol Succinate (Toprol Xl) 50 mg PO BID [facility] Stop: 03/18/20 08:59 Last Admin: 02/17/20 09:07 Dose: 50 mg Documented by: Miscellaneous (Carbohydrates For Hypoglycemia) 15 - 30 gm PO UD PRN PRN Reason: Hypoglycemia Treatment Stop: 03/18/20 03:29 Nitroglycerin (Nitrostat) 0.4 mg SL UD PRN PRN Reason: Chest Pain Stop: 03/18/20 03:05 Nystatin (Mycostatin) 1 appln EXT TID PRN PRN Reason: Skin Irritation Stop: 03/18/20 03:05 Ondansetron HCl (Zofran) 4 mg IV Q6H PRN PRN Reason: Nausea Stop: 03/18/20 03:05 Oxycodone HCl (Roxicodone Immediate Rel) 10 mg PO Q4H PRN PRN Reason: Pain Stop: 03/02/20 03:17 Pantoprazole Sodium (Protonix) 40 mg PO DAILY [facility] Stop: 03/18/20 08:59 Last Admin: 02/17/20 09:07 Dose: 40 mg Documented by: Polyethylene Glycol (Miralax Powder Packet) 17 gm PO DAILY PRN PRN Reason: Constipation Stop: 03/18/20 03:05 Polyethylene Glycol (Miralax Powder Packet) 17 gm PO DAILY [facility] Stop: 03/18/20 08:59 Last Admin: 02/17/20 09:10 Dose: 17 gm Documented by: Potassium Chloride (Klor-Con M20) 20 meq PO BID [facility] Stop: 03/18/20 08:59 Last Admin: 02/17/20 09:10 Dose: 20 meq Documented by: Sennosides (Senokot) 17.2 mg PO BID [facility] Stop: 03/18/20 08:59 Last Admin: 02/17/20 09:04 Dose: 17.2 mg Documented by: Spironolactone (Aldactone) 25 mg PO QAM [facility] Stop: 03/18/20 08:59 Last Admin: 02/17/20 09:06 Dose: 25 mg Documented by: Tamsulosin HCl (Flomax) 0.4 mg PO QAM [facility] Stop: 03/18/20 08:59 Last Admin: 02/17/20 09:08 Dose: 0.4 mg Documented by: Umeclidinium [place] (Incruse Ellipta) 1 puffs INH QAM [facility] Stop: 03/18/20 08:59 Last Admin: 02/17/20 09:08 Dose: 1 puffs Documented by: (1) COPD (chronic obstructive pulmonary disease) COPD type: unspecified COPD Qualified Code(s): J44.9 - Chronic obstructive pulmonary disease, unspecified
[2020-02-17 16:39] LABS: INR 4.6 (0.9-1.1)
[2020-02-17] MEDS ORDERED: KETOROLAC TROMETHAMINE 15 MG/ML VIAL IV ONE (20:06)
[2020-02-17] MEDS: AMITRIPTYLINE HCL 50 MG TAB PO SCH (20:32)
[2020-02-17] MEDS: LORazepam 0.5 MG TAB PO PRN (20:39)
[2020-02-18] MEDS: OXYCODONE HCL IR 5 MG TAB (IMMEDIATE RELEASE) PO PRN ×5 (03:45→21:55)
[2020-02-18] MEDS ORDERED: TRAMADOL HCL 50 MG TABLET PO STA (04:50)
[2020-02-18 05:41] LABS: Basophils # (auto) 0.04 K/uL (0-0.2); Basophils % (auto) 0.4 %; Eosinophils # (auto) 0.48 K/uL (0-0.5); Eosinophils % (auto) 4.6 %; Hematocrit (blood only) 40.2 % (42-52); Hemoglobin 12.5 g/dL (14.0-18.0); Immature Granulocytes # (auto) 0.03 K/uL (0.00-0.02); Immature Granulocytes % (auto) 0.3 %; Lymphocytes # (auto) 2.61 K/uL (1.2-3.4); Mean Corpuscular Hemoglobin 23.1 pg (25-34); Mean Corpuscular Hgb Conc 31.1 g/dL (32-36); Mean Corpuscular Volume 74.2 fL (80-100); Mean Platelet Volume 10.1 fL (7.4-10.4); Monocytes # (auto) 0.83 K/uL (0.11-0.59); Neutrophils # (auto) 6.44 K/uL (1.4-6.5); Neutrophils % (auto) 61.7 %; Platelet Count 287 K/uL (130-400); RDW Coefficient of Variation 20.5 % (11.5-14.5); Red Blood Count 5.42 M/uL (4.7-6.1); White Blood Count 10.43 K/uL (4.8-10.8)
[2020-02-18 05:58] LABS: Creatinine Clr Calc Pharmacy 139.2 ml/min; Est GFR (African American) 84.3; Est GFR (Non-African American) 72.8; Potassium 3.7 mmol/L (3.5-5.1)
[2020-02-18 06:06] LABS: Anisocytosis Present; INR 2.5 (0.9-1.1); Prothrombin Time 25.3 Seconds (9.0-12.0)
--- NOTE | 2020-02-18 07:25 | Electrocardiogram Report ---
Test Reason : Blood Pressure : / mmHG Vent. Rate : 102 BPM Atrial Rate : 102 BPM P-R Int : 146 ms QRS Dur : 104 ms QT Int : 342 ms P-R-T Axes : 021 035 040 degrees QTc Int : 445 ms Sinus tachycardia RSR' or QR pattern in V1 suggests right ventricular conduction delay Nonspecific T wave abnormality Abnormal ECG When compared with ECG of 02-JAN-2020 17:16, Nonspecific T wave abnormality no longer evident in Lateral leads Confirmed by Christian Cunningham ([id number]) on 02/18/2020 7:25:05 AM Referred By: REFERRED SELF Confirmed By:Christian Cunningham
--- NOTE | 2020-02-18 07:27 | Electrocardiogram Report ---
Test Reason : Blood Pressure : / mmHG Vent. Rate : 090 BPM Atrial Rate : 090 BPM P-R Int : 152 ms QRS Dur : 104 ms QT Int : 364 ms P-R-T Axes : 039 039 037 degrees QTc Int : 445 ms Normal sinus rhythm Normal ECG When compared with ECG of 16-FEB-2020 22:55, (unconfirmed) No significant change was found Confirmed by Christian Cunningham ([id number] on 02/18/2020 7:27:04 AM Referred By: REFERRED SELF Confirmed By:Christian Cunningham
[2020-02-18] MEDS: POTASSIUM CHLORIDE 20 MEQ TABCR PO SCH ×2 (08:32→21:48)
[2020-02-18] MEDS: ISOSORBIDE MONO EXTENDED REL 30 MG TABCR PO SCH (08:32)
[2020-02-18] MEDS: TAMSULOSIN HCL 0.4 MG CAP PO SCH (08:32)
[2020-02-18] MEDS: FOLIC ACID 1 MG TAB PO SCH (08:32)
[2020-02-18] MEDS: LACTOBACILLUS ACIDOPHILUS (FLORANEX) TAB PO SCH ×2 (08:32→21:48)
[2020-02-18] MEDS: DULOXETINE HCL 60 MG CAP PO SCH (08:32)
[2020-02-18] MEDS: METOPROLOL SUCC 50MG EXT REL TAB PO SCH ×2 (08:32→21:48)
[2020-02-18] MEDS: PANTOprazole 40 MG TAB PO SCH (08:32)
[2020-02-18] MEDS: GABAPENTIN 300 MG CAP PO SCH ×3 (08:33→21:48)
[2020-02-18] MEDS: ATORVASTATIN 40 MG TAB PO SCH (08:33)
[2020-02-18] MEDS: DOCUSATE SODIUM 100 MG CAP PO SCH ×2 (08:33→21:49)
[2020-02-18] MEDS: ASPIRIN 81 MG ECTAB PO SCH (08:33)
[2020-02-18] MEDS: SENNA 8.6 MG TAB PO SCH ×2 (08:33→21:47)
[2020-02-18] MEDS: POLYETHYLENE (MIRALAX) 17 GM PACK PO SCH (08:34)
[2020-02-18] MEDS: MAGNESIUM OXIDE 400 MG TAB PO SCH (08:34)
[2020-02-18] MEDS: FLUTICASONE/VILANTEROL 200/25MCG 14 PUFFS/INHALER INH SCH (08:34)
[2020-02-18] MEDS: FUROSEMIDE 40 MG in SYRINGE 0 ML IV SCH ×2 (08:34→17:16)
[2020-02-18] MEDS: SPIRONOLACTONE 25 MG TAB PO SCH (08:34)
[2020-02-18] MEDS: FINASTERIDE 5 MG TAB PO SCH (08:34)
[2020-02-18] MEDS: UMECLIDINIUM BROMIDE 62.5MCG/BLISTER 7 PUFFS/INHALER INH SCH (08:35)
[2020-02-18] MEDS: INSULIN ASPART 100 UNITS/ML 3 ML PEN SC SCH ×4 (08:44→20:53)
[2020-02-18] MEDS: CYCLOBENZAPRINE HCL 10 MG TAB PO SCH ×2 (08:49→21:49)
[2020-02-18] MEDS ORDERED: cefTRIAXone SODIUM 1,000 MG in DEXTROSE 5% 50 ML IV SCH (10:15)
[2020-02-18] MEDS: cefTRIAXone SODIUM 2,000 MG in DEXTROSE 5% 50 ML IV SCH (11:08)
[2020-02-18] MEDS: LORazepam 0.5 MG TAB PO PRN ×2 (13:10→21:55)
--- NOTE | 2020-02-18 14:36 | Hospitalist Progress Note ---
Date of Service February 18, 2020 Assessment & Plan (1) Acute on chronic diastolic heart failure: Came in with 17 pounds weight gain since the last month Chest x-ray did show congestive changes Noted to have increasing leg edema Started with intravenous Lasix 40 mg twice daily No acute symptoms Has been diuresing enough and lost about 5 kg since admission We will continue current dose of Lasix and monitor. (2) Left-sided chest pain: Left-sided chest pain No EKG changes and troponins are not elevated Likely noncardiac No more chest pain Right upper quadrant pain New complaints from this morning Has had CT of the abdomen and ultrasound of the gallbladder during recent admission Requesting if he can see the service center manager We will talk to GI tomorrow (3) History of pulmonary embolism: On Coumadin Came out with supratherapeutic INR of more than 9 Received intravenous vitamin K in the ER Coumadin is on hold Monitor INR-therapeutic today on 02/18/2020 We will restart Coumadin (4) DM type 2 (diabetes mellitus, type 2): We will put him on sliding scale insulin coverage (5) COPD (chronic obstructive pulmonary disease): Has COPD with history of respiratory failure No acute exacerbation at this time (6) Chronic pain disorder: History of chronic pain disorder involving the back pain with radiation Pain in the right leg and pain secondary to diabetic neuropathy History of narcotic dependence Will increase oral pain medication just for a day or 2 while in the hospital We will discharge on current outpatient dose of narcotic We will make an appointment with outpatient pain therapist and primary care provider on discharge He will be given his usual outpatient dose of narcotics on discharge Other significant medical conditions remained stable DVT prophylaxis Has been on Coumadin and INR is supratherapeutic CODE STATUS Full Likely discharge on Wednesday or Wednesday Admission and Anticipated Discharge Date Admission Date: February 17, 2020 Subjective The patient was seen and examined in medical telemetry unit He was admitted yesterday with increasing weight gain, increasing back and leg pain and increased INR of more than 9 He complains to have lots of pain this morning especially at the back and radiation to the leg Denies any chest pain or palpitation Generally weak and lethargic 02/18/2020 The patient was seen and examined in medical telemetry unit He complains to have right upper quadrant pain, 10 out of 10 on a scale of 0-10 without any associated symptoms Generally weak and lethargic Review of Systems Review of Systems: All systems reviewed and are unremarkable except as noted below Gastrointestinal: + abdominal pain (Right upper quadrant pain) Musculoskeletal: + back pain (With radiation to legs) and + joint pain (Right leg) Physical Exam Physical Exam: Lying in bed with moderate distress due to pain over right upper quadrant Constitutional: well developed, well nourished, + acute distress (Back pain), + ill appearing and + morbidly obese Eyes: PERRL, conjunctivae normal, anicteric sclerae ENMT: external ear and nose normal, oropharynx normal Neck: trachea midline, no thyromegaly Respiratory: normal respiratory effort; no respiratory distress A uscultation: + diminished lung sounds and + crackles (Minimal to no crackles at the bases) Cardiovascular: Rate/Rhythm: regular rate and regular rhythm Heart Sounds: no murmur Gastrointestinal (Abdomen): Inspection/Auscultation: + abdomen distended and normal bowel sounds Percussion/Palpation: + abdomen tender (Questionable tenderness involving the right upper quadrant) and abdomen soft Musculoskeletal: Complains back pain and bilateral leg pain Neurologic: moves all extremities; no focal motor deficits Lymphatic: no cervical or axillary lymphadenopathy Results & Data Results & Data ([facility]) Vital Signs (Past 12 Hours) Vital Signs Temp Pulse Resp BP BP Pulse Ox 02/18/20 11:39 36.7 C 79 18 131/76 94 02/18/20 07:01 36.8 C 73 20 165/71 H 94 02/18/20 04:07 36.7 C 73 20 93/65 L 94 Laboratory Results Short CBC 02/18/20 Range/Units 05:24 WBC 10.43 (4.8-10.8) K/uL Hgb 12.5 L (14.0-18.0) g/dL Hct 40.2 L (42-52) % Plt Count 287 (130-400) K/uL BMP 02/18/20 05:24 Sodium 139 Potassium 3.7 Chloride 103 Carbon Dioxide 32 BUN 11 D Creatinine 1.17 Glucose 174 H Calcium 9.0 Medications Administered Current Inpatient Medications Acetaminophen (Tylenol) 650 mg PO Q4H PRN PRN Reason: Pain or Fever Stop: 03/18/20 03:05 Albuterol (Ventolin Hfa) 2 puffs INH Q4 PRN PRN Reason: Dyspnea Stop: 03/18/20 03:05 Albuterol (Duoneb) 3 ml INH QID PRN PRN Reason: Shortness Of Breath Or Wheezing Stop: 03/18/20 03:05 Albuterol (Combivent Respimat) 1 puffs INH QID PRN PRN Reason: Shortness Of Breath Stop: 03/18/20 08:59 Amitriptyline HCl (Elavil) 50 mg PO HS EMPERATRIZ Stop: 03/18/20 20:59 Last Admin: 02/17/20 20:32 Dose: 50 mg Documented by: Aspirin (Ecotrin Ectab) 81 mg PO QAM EMPERATRIZ Stop: 03/18/20 08:59 Last Admin: 02/18/20 08:33 Dose: 81 mg Documented by: Atorvastatin Calcium (Lipitor) 80 mg PO DAILY EMPERATRIZ Stop: 03/18/20 08:59 Last Admin: 02/18/20 08:33 Dose: 80 mg Documented by: Benzonatate (Tessalon Perle) 100 mg PO TID PRN PRN Reason: Cough Stop: 03/18/20 03:05 Cyclobenzaprine HCl (Flexeril) 10 mg PO BID EMPERATRIZ Stop: 03/18/20 08:59 Last Admin: 02/18/20 08:49 Dose: 10 mg Documented by: Dextrose (Dextrose 50%) 25 - 50 ml IV UD PRN; Protocol PRN Reason: Hypoglycemia Protocol Stop: 03/18/20 03:29 Docusate Sodium (Colace) 100 mg PO BID EMPERATRIZ Stop: 03/18/20 08:59 Last Admin: 02/18/20 08:33 Dose: 100 mg Documented by: Duloxetine HCl (Cymbalta) 60 mg PO DAILY EMPERATRIZ Stop: 03/18/20 08:59 Last Admin: 02/18/20 08:32 Dose: 60 mg Documented by: Finasteride (Proscar) 5 mg PO QAM EMPERATRIZ Stop: 03/18/20 08:59 Last Admin: 02/18/20 08:34 Dose: 5 mg Documented by: Fluticasone Propionate (Flonase) 2 sprays NA DAILY PRN PRN Reason: Allergy Symptoms Stop: 03/18/20 03:05 Fluticasone/Vilanterol (Breo Ellipta 200/25 Mcg Inh) 1 puffs INH QAM EMPERATRIZ Stop: 03/18/20 08:59 Last Admin: 02/18/20 08:34 Dose: 1 puffs Documented by: Folic Acid (Folvite) 1 mg PO DAILY EMPERATRIZ Stop: 03/18/20 08:59 Last Admin: 02/18/20 08:32 Dose: 1 mg Documented by: Gabapentin (Neurontin) 600 mg PO TID EMPERATRIZ Stop: 03/18/20 08:59 Last Admin: 02/18/20 13:46 Dose: 600 mg Documented by: Glucagon (Glucagen) 1 mg SQ UD PRN; Protocol PRN Reason: Hypoglycemia Protocol Stop: 03/18/20 03:29 Glucose (Glucose 40%) 15 - 30 gm PO UD PRN; Protocol PRN Reason: Hypoglycemia Protocol Stop: 03/18/20 03:29 Glucose (Dex4 Glucose) 4 - 8 tabs PO UD PRN; Protocol PRN Reason: Hypoglycemia Protocol Stop: 03/18/20 03:29 Hydroxyzine HCl (Vistaril) 25 mg PO QID PRN PRN Reason: Anxiety Stop: 03/18/20 03:05 Furosemide 40 mg/ Syringe 4 mls @ 4 mls/min IV BID17 EMPERATRIZ Stop: 03/18/20 08:59 Last Admin: 02/18/20 08:34 Dose: 4 mls/min Documented by: Ceftriaxone Sodium 2,000 mg/ (Dextrose) 70 mls @ 140 mls/hr IV Q24H EMPERATRIZ Stop: 02/28/20 09:59 Last Infusion: 02/18/20 11:41 Dose: Infused Documented by: Insulin Aspart (Novolog Flexpen) 0 units SC ACHS EMPERATRIZ Stop: 03/18/20 07:29 Last Admin: 02/18/20 12:22 Dose: 6 units Documented by: Isosorbide Mononitrate (Imdur Extended Rel) 30 mg PO QAM EMPERATRIZ Stop: 03/18/20 08:59 Last Admin: 02/18/20 08:32 Dose: 30 mg Documented by: Lactobacillus Acidophilus (Floranex) 1 tab PO BID EMPERATRIZ Stop: 03/18/20 08:59 Last Admin: 02/18/20 08:32 Dose: 1 tab Documented by: Lorazepam (Ativan) 0.5 mg PO TID PRN PRN Reason: Anxiety Stop: 03/18/20 03:05 Last Admin: 02/18/20 13:10 Dose: 0.5 mg Documented by: Magnesium Oxide (Mag-Ox) 400 mg PO DAILY EMPERATRIZ Stop: 03/18/20 08:59 Last Admin: 02/18/20 08:34 Dose: 400 mg Documented by: Metoprolol Succinate (Toprol Xl) 50 mg PO BID EMPERATRIZ Stop: 03/18/20 08:59 Last Admin: 02/18/20 08:32 Dose: 50 mg Documented by: Miscellaneous (Carbohydrates For Hypoglycemia) 15 - 30 gm PO UD PRN PRN Reason: Hypoglycemia Treatment Stop: 03/18/20 03:29 Nitroglycerin (Nitrostat) 0.4 mg SL UD PRN PRN Reason: Chest Pain Stop: 03/18/20 03:05 Nystatin (Mycostatin) 1 appln EXT TID PRN PRN Reason: Skin Irritation Stop: 03/18/20 03:05 Ondansetron HCl (Zofran) 4 mg IV Q6H PRN PRN Reason: Nausea Stop: 03/18/20 03:05 Oxycodone HCl (Roxicodone Immediate Rel) 10 mg PO Q4H PRN PRN Reason: Pain Stop: 03/02/20 03:17 Last Admin: 02/18/20 13:09 Dose: 10 mg Documented by: Pantoprazole Sodium (Protonix) 40 mg PO DAILY EMPERATRIZ Stop: 03/18/20 08:59 Last Admin: 02/18/20 08:32 Dose: 40 mg Documented by: Polyethylene Glycol (Miralax Powder Packet) 17 gm PO DAILY PRN PRN Reason: Constipation Stop: 03/18/20 03:05 Polyethylene Glycol (Miralax Powder Packet) 17 gm PO DAILY EMPERATRIZ Stop: 03/18/20 08:59 Last Admin: 02/18/20 08:34 Dose: 17 gm Documented by: Potassium Chloride (Klor-Con M20) 20 meq PO BID EMPERATRIZ Stop: 03/18/20 08:59 Last Admin: 02/18/20 08:32 Dose: 20 meq Documented by: Sennosides (Senokot) 17.2 mg PO BID EMPERATRIZ Stop: 03/18/20 08:59 Last Admin: 02/18/20 08:33 Dose: 17.2 mg Documented by: Spironolactone (Aldactone) 25 mg PO QAM EMPERATRIZ Stop: 03/18/20 08:59 Last Admin: 02/18/20 08:34 Dose: 25 mg Documented by: Tamsulosin HCl (Flomax) 0.4 mg PO QAM [facility] Stop: 03/18/20 08:59 Last Admin: 02/18/20 08:32 Dose: 0.4 mg Documented by: Umeclidinium [place] (Incruse Ellipta) 1 puffs INH QAM [facility] Stop: 03/18/20 08:59 Last Admin: 02/18/20 08:35 Dose: 1 puffs Documented by: Warfarin Sodium (Coumadin) 5 mg PO DAILY@1600 [facility] Stop: 03/19/20 15:59 (1) COPD (chronic obstructive pulmonary disease) COPD type: unspecified COPD Qualified Code(s): J44.9 - Chronic obstructive pulmonary disease, unspecified
[2020-02-18] MEDS: WARFARIN SOD 5 MG TAB PO SCH (17:16)
[2020-02-18] MEDS: AMITRIPTYLINE HCL 50 MG TAB PO SCH (21:49)
[2020-02-19] MEDS: OXYCODONE HCL IR 5 MG TAB (IMMEDIATE RELEASE) PO PRN ×5 (02:34→20:33)
[2020-02-19 07:11] LABS: Basophils # (auto) 0.03 K/uL (0-0.2); Basophils % (auto) 0.3 %; Eosinophils # (auto) 0.58 K/uL (0-0.5); Eosinophils % (auto) 5.1 %; Hematocrit (blood only) 40.5 % (42-52); Hemoglobin 12.2 g/dL (14.0-18.0); Immature Granulocytes # (auto) 0.03 K/uL (0.00-0.02); Immature Granulocytes % (auto) 0.3 %; Lymphocytes # (auto) 2.39 K/uL (1.2-3.4); Lymphocytes % (auto) 21.1 %; Mean Corpuscular Hemoglobin 22.7 pg (25-34); Mean Corpuscular Hgb Conc 30.1 g/dL (32-36); Mean Corpuscular Volume 75.4 fL (80-100); Mean Platelet Volume 10.1 fL (7.4-10.4); Monocytes # (auto) 0.85 K/uL (0.11-0.59); Monocytes % (auto) 7.5 %; Neutrophils # (auto) 7.44 K/uL (1.4-6.5); Neutrophils % (auto) 65.7 %; Platelet Count 299 K/uL (130-400); RDW Coefficient of Variation 20.5 % (11.5-14.5); RDW Standard Deviation 56.2 fL (36.4-46.3); Red Blood Count 5.37 M/uL (4.7-6.1); White Blood Count 11.32 K/uL (4.8-10.8)
[2020-02-19 07:32] LABS: Anisocytosis Present
[2020-02-19 07:34] LABS: Prothrombin Time 19.9 Seconds (9.0-12.0)
[2020-02-19 07:37] LABS: Albumin Level 2.9 gm/dl (3.4-5.0); Calcium 9.6 mg/dl (8.5-10.1); Creatinine Clr Calc Pharmacy 141.6 ml/min; Est GFR (Non-African American) 75.1; Magnesium 2.2 mg/dl (1.8-2.4); Potassium 3.5 mmol/L (3.5-5.1)
[2020-02-19 07:40] LABS: Albumin Globulin Ratio 0.7 (0.9-2); Bilirubin,Total 0.5 mg/dl (0.2-1); Globulin 4.3 gm/dl (2.5-4.0); Total Protein 7.2 gm/dl (6.4-8.2)
[2020-02-19] MEDS: UMECLIDINIUM BROMIDE 62.5MCG/BLISTER 7 PUFFS/INHALER INH SCH (07:58)
[2020-02-19] MEDS: POTASSIUM CHLORIDE 20 MEQ TABCR PO SCH ×2 (07:58→20:07)
[2020-02-19] MEDS: SENNA 8.6 MG TAB PO SCH ×2 (07:58→20:10)
[2020-02-19] MEDS: GABAPENTIN 300 MG CAP PO SCH ×3 (07:58→20:07)
[2020-02-19] MEDS: LACTOBACILLUS ACIDOPHILUS (FLORANEX) TAB PO SCH ×2 (07:59→20:06)
[2020-02-19] MEDS: DOCUSATE SODIUM 100 MG CAP PO SCH ×2 (07:59→20:05)
[2020-02-19] MEDS: PANTOprazole 40 MG TAB PO SCH ×2 (07:59→20:11)
[2020-02-19] MEDS: FLUTICASONE/VILANTEROL 200/25MCG 14 PUFFS/INHALER INH SCH (07:59)
[2020-02-19] MEDS: SPIRONOLACTONE 25 MG TAB PO SCH (08:00)
[2020-02-19] MEDS: METOPROLOL SUCC 50MG EXT REL TAB PO SCH ×2 (08:00→20:08)
[2020-02-19] MEDS: FOLIC ACID 1 MG TAB PO SCH (08:00)
[2020-02-19] MEDS: DULOXETINE HCL 60 MG CAP PO SCH (08:01)
[2020-02-19] MEDS: POLYETHYLENE (MIRALAX) 17 GM PACK PO SCH ×3 (08:01→20:07)
[2020-02-19] MEDS: ISOSORBIDE MONO EXTENDED REL 30 MG TABCR PO SCH (08:01)
[2020-02-19] MEDS: FINASTERIDE 5 MG TAB PO SCH (08:01)
[2020-02-19] MEDS: MAGNESIUM OXIDE 400 MG TAB PO SCH (08:01)
[2020-02-19] MEDS: ASPIRIN 81 MG ECTAB PO SCH (08:01)
[2020-02-19] MEDS: CYCLOBENZAPRINE HCL 10 MG TAB PO SCH ×2 (08:01→20:06)
[2020-02-19] MEDS: TAMSULOSIN HCL 0.4 MG CAP PO SCH (08:01)
[2020-02-19] MEDS: ATORVASTATIN 40 MG TAB PO SCH (08:02)
[2020-02-19] MEDS: INSULIN ASPART 100 UNITS/ML 3 ML PEN SC SCH ×4 (08:05→20:12)
[2020-02-19] MEDS: FUROSEMIDE 40 MG in SYRINGE 0 ML IV SCH ×2 (08:18→17:45)
[2020-02-19] MEDS ORDERED: bisacodyL 10 MG SUPP PR ONE (09:28)
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
[2020-02-19] MEDS: cefTRIAXone SODIUM 2,000 MG in DEXTROSE 5% 50 ML IV SCH (10:26)
[2020-02-19] MEDS ORDERED: HYDROmorphone INJ 0.5 MG/0.5 ML SYR IV STA (11:29)
[2020-02-19] MEDS: SUCRALFATE 1 GM/10 ML UDC PO SCH ×3 (12:32→20:04)
--- NOTE | 2020-02-19 14:34 | Hospitalist Progress Note ---
Date of Service February 19, 2020 Assessment & Plan (1) Acute on chronic diastolic heart failure: Came in with 17 pounds weight gain since the last month Chest x-ray did show congestive changes Noted to have increasing leg edema Started with intravenous Lasix 40 mg twice daily No acute symptoms Has been diuresing enough and lost about 5 kg since admission We will continue current dose of Lasix and monitor. Has been diuresing enough We will continue current dose of Lasix UTI Recurrent UTI due to chronic fontaine catheter E. coli UTI and sensitive to ceftriaxone Will change Fontaine catheter (2) Left-sided chest pain: Left-sided chest pain No EKG changes and troponins are not elevated Likely noncardiac No more chest pain Right upper quadrant pain New complaints from this morning Has had CT of the abdomen and ultrasound of the gallbladder during recent admission Requesting if he can see the diamond powder technician Appreciate GI input and recommendation To be discharged tomorrow (3) History of pulmonary embolism: On Coumadin Came out with supratherapeutic INR of more than 9 Received intravenous vitamin K in the ER Coumadin is on hold Monitor INR-therapeutic today on 02/18/2020 We will restart Coumadin INR remains therapeutic (4) DM type 2 (diabetes mellitus, type 2): We will put him on sliding scale insulin coverage (5) COPD (chronic obstructive pulmonary disease): Has COPD with history of respiratory failure No acute exacerbation at this time (6) Chronic pain disorder: History of chronic pain disorder involving the back pain with radiation Pain in the right leg and pain secondary to diabetic neuropathy History of narcotic dependence Will increase oral pain medication just for a day or 2 while in the hospital We will discharge on current outpatient dose of narcotic We will make an appointment with outpatient pain therapist and primary care provider on discharge He will be given his usual outpatient dose of narcotics on discharge Pain he seems to be controlled Other significant medical conditions remained stable DVT prophylaxis Has been on Coumadin and INR is supratherapeutic CODE STATUS Full Likely discharge on Wednesday or Wednesday Admission and Anticipated Discharge Date Admission Date: February 17, 2020 Subjective The patient was seen and examined in medical telemetry unit He was admitted yesterday with increasing weight gain, increasing back and leg pain and increased INR of more than 9 He complains to have lots of pain this morning especially at the back and radiation to the leg Denies any chest pain or palpitation Generally weak and lethargic 02/18/2020 The patient was seen and examined in medical telemetry unit He complains to have right upper quadrant pain, 10 out of 10 on a scale of 0-10 without any associated symptoms Generally weak and lethargic 02/19/2020 The patient was seen and examined in medical telemetry unit He complains of epigastric and right upper quadrant pain and was seen by diamond powder technician Denies any other significant symptoms Review of Systems Review of Systems: All systems reviewed and are unremarkable except as noted below Gastrointestinal: + abdominal pain (Right upper quadrant pain) Musculoskeletal: + back pain (With radiation to legs) and + joint pain (Right leg) Physical Exam Physical Exam: Lying in bed with moderate distress due to pain over right upper quadrant Constitutional: well developed, well nourished, + acute distress (Back pain), + ill appearing and + morbidly obese Eyes: PERRL, conjunctivae normal, anicteric sclerae ENMT: external ear and nose normal, oropharynx normal Neck: trachea midline, no thyromegaly Respiratory: normal respiratory effort; no respiratory distress Auscultation: lungs clear to auscultation bilaterally and + diminished lung sounds; no crackles (Minimal to no crackles at the bases) Cardiovascular: Rate/Rhythm: regular rate and regular rhythm Heart Sounds: no murmur Gastrointestinal (Abdomen): Inspection/Auscultation: + abdomen distended and normal bowel sounds Percussion/Palpation: + abdomen tender (Questionable tenderness involving the right upper quadrant) and abdomen soft Neurologic: moves all extremities; no focal motor deficits Lymphatic: no cervical or axillary lymphadenopathy Results & Data Results & Data ([facility]) Vital Signs (Past 12 Hours) Vital Signs Temp Pulse Pulse Resp BP BP Pulse Ox 02/19/20 11:22 36.5 C 79 18 106/61 95 02/19/20 08:21 36.5 C 71 20 146/75 H 97 02/19/20 07:34 65 02/19/20 03:56 36.7 C 76 18 108/72 95 Laboratory Results Short CBC 02/19/20 Range/Units 06:50 WBC 11.32 H (4.8-10.8) K/uL Hgb 12.2 L (14.0-18.0) g/dL Hct 40.5 L (42-52) % Plt Count 299 (130-400) K/uL BMP 02/19/20 06:50 Sodium 137 Potassium 3.5 Chloride 100 Carbon Dioxide 33 H BUN 11 Creatinine 1.14 Glucose 133 H Calcium 9.6 Liver Function 02/19/20 Range/Units 06:50 Total Bilirubin 0.5 (0.2-1) mg/dl AST 13 L (15-37) U/L ALT 22 (12-78) U/L Alkaline Phosphatase 147 H (45-117) U/L Albumin 2.9 L (3.4-5.0) gm/dl Medications Administered Current Inpatient Medications Acetaminophen (Tylenol) 650 mg PO Q4H PRN PRN Reason: Pain or Fever Stop: 03/18/20 03:05 Albuterol (Ventolin Hfa) 2 puffs INH Q4 PRN PRN Reason: Dyspnea Stop: 03/18/20 03:05 Albuterol (Duoneb) 3 ml INH QID PRN PRN Reason: Shortness Of Breath Or Wheezing Stop: 03/18/20 03:05 Albuterol (Combivent Respimat) 1 puffs INH QID PRN PRN Reason: Shortness Of Breath Stop: 03/18/20 08:59 Amitriptyline HCl (Elavil) 50 mg PO HS [facility] Stop: 03/18/20 20:59 Last Admin: 02/18/20 21:49 Dose: 50 mg Documented by: Aspirin (Ecotrin Ectab) 81 mg PO QAM [facility] Stop: 03/18/20 08:59 Last Admin: 02/19/20 08:01 Dose: 81 mg Documented by: Atorvastatin Calcium (Lipitor) 80 mg PO DAILY [facility] Stop: 03/18/20 08:59 Last Admin: 02/19/20 08:02 Dose: 80 mg Documented by: Benzonatate (Tessalon Perle) 100 mg PO TID PRN PRN Reason: Cough Stop: 03/18/20 03:05 Cyclobenzaprine HCl (Flexeril) 10 mg PO BID [facility] Stop: 03/18/20 08:59 Last Admin: 02/19/20 08:01 Dose: 10 mg Documented by: Dextrose (Dextrose 50%) 25 - 50 ml IV UD PRN; Protocol PRN Reason: Hypoglycemia Protocol Stop: 03/18/20 03:29 Docusate Sodium (Colace) 100 mg PO BID [facility] Stop: 03/18/20 08:59 Last Admin: 02/19/20 07:59 Dose: 100 mg Documented by: Docusate Sodium (Colace) 100 mg PO BID [facility] Stop: 03/20/20 20:59 Duloxetine HCl (Cymbalta) 60 mg PO DAILY [facility] Stop: 03/18/20 08:59 Last Admin: 02/19/20 08:01 Dose: 60 mg Documented by: Finasteride (Proscar) 5 mg PO QAM [facility] Stop: 03/18/20 08:59 Last Admin: 02/19/20 08:01 Dose: 5 mg Documented by: Fluticasone Propionate (Flonase) 2 sprays NA DAILY PRN PRN Reason: Allergy Symptoms Stop: 03/18/20 03:05 Fluticasone/Vilanterol (Breo Ellipta 200/25 Mcg Inh) 1 puffs INH QAM [facility] Stop: 03/18/20 08:59 Last Admin: 02/19/20 07:59 Dose: 1 puffs Documented by: Folic Acid (Folvite) 1 mg PO DAILY [facility] Stop: 03/18/20 08:59 Last Admin: 02/19/20 08:00 Dose: 1 mg Documented by: Gabapentin (Neurontin) 600 mg PO TID [facility] Stop: 03/18/20 08:59 Last Admin: 02/19/20 07:58 Dose: 600 mg Documented by: Glucagon (Glucagen) 1 mg SQ UD PRN; Protocol PRN Reason: Hypoglycemia Protocol Stop: 03/18/20 03:29 Glucose (Glucose 40%) 15 - 30 gm PO UD PRN; Protocol PRN Reason: Hypoglycemia Protocol Stop: 03/18/20 03:29 Glucose (Dex4 Glucose) 4 - 8 tabs PO UD PRN; Protocol PRN Reason: Hypoglycemia Protocol Stop: 03/18/20 03:29 Hydroxyzine HCl (Vistaril) 25 mg PO QID PRN PRN Reason: Anxiety Stop: 03/18/20 03:05 Furosemide 40 mg/ Syringe 4 mls @ 4 mls/min IV BID17 [facility] Stop: 03/18/20 08:59 Last Admin: 02/19/20 08:18 Dose: 4 mls/min Documented by: Ceftriaxone Sodium 2,000 mg/ (Dextrose) 70 mls @ 140 mls/hr IV Q24H [facility] Stop: 02/28/20 09:59 Last Admin: 02/19/20 10:26 Dose: 140 mls/hr Documented by: Insulin Aspart (Novolog Flexpen) 0 units SC ACHS [facility] Stop: 03/18/20 07:29 Last Admin: 02/19/20 12:28 Dose: 8 units Documented by: Isosorbide Mononitrate (Imdur Extended Rel) 30 mg PO QAM [facility] Stop: 03/18/20 08:59 Last Admin: 02/19/20 08:01 Dose: 30 mg Documented by: Lactobacillus Acidophilus (Floranex) 1 tab PO BID [facility] Stop: 03/18/20 08:59 Last Admin: 02/19/20 07:59 Dose: 1 tab Documented by: Lorazepam (Ativan) 0.5 mg PO TID PRN PRN Reason: Anxiety Stop: 03/18/20 03:05 Last Admin: 02/18/20 21:55 Dose: 0.5 mg Documented by: Magnesium Oxide (Mag-Ox) 400 mg PO DAILY [facility] Stop: 03/18/20 08:59 Last Admin: 02/19/20 08:01 Dose: 400 mg Documented by: Metoprolol Succinate (Toprol Xl) 50 mg PO BID [facility] Stop: 03/18/20 08:59 Last Admin: 02/19/20 08:00 Dose: 50 mg Documented by: Miscellaneous (Carbohydrates For Hypoglycemia) 15 - 30 gm PO UD PRN PRN Reason: Hypoglycemia Treatment Stop: 03/18/20 03:29 Nitroglycerin (Nitrostat) 0.4 mg SL UD PRN PRN Reason: Chest Pain Stop: 03/18/20 03:05 Nystatin (Mycostatin) 1 appln EXT TID PRN PRN Reason: Skin Irritation Stop: 03/18/20 03:05 Ondansetron HCl (Zofran) 4 mg IV Q6H PRN PRN Reason: Nausea Stop: 03/18/20 03:05 Oxycodone HCl (Roxicodone Immediate Rel) 10 mg PO Q4H PRN PRN Reason: Pain Stop: 03/02/20 03:17 Last Admin: 02/19/20 12:27 Dose: 10 mg Documented by: Pantoprazole Sodium (Protonix) 40 mg PO BID [facility] Stop: 03/20/20 20:59 Polyethylene Glycol (Miralax Powder Packet) 17 gm PO DAILY PRN PRN Reason: Constipation Stop: 03/18/20 03:05 Polyethylene Glycol (Miralax Powder Packet) 17 gm PO TID [facility] Stop: 03/20/20 13:59 Potassium Chloride (Klor-Con M20) 20 meq PO BID [facility] Stop: 03/18/20 08:59 Last Admin: 02/19/20 07:58 Dose: 20 meq Documented by: Sennosides (Senokot) 17.2 mg PO BID [facility] Stop: 03/18/20 08:59 Last Admin: 02/19/20 07:58 Dose: 17.2 mg Documented by: Spironolactone (Aldactone) 25 mg PO QAM [facility] Stop: 03/18/20 08:59 Last Admin: 02/19/20 08:00 Dose: 25 mg Documented by: Sucralfate (Carafate) 1 gm PO QID [facility] Stop: 03/20/20 12:59 Last Admin: 02/19/20 12:32 Dose: 1 gm Documented by: Tamsulosin HCl (Flomax) 0.4 mg PO QAM [facility] Stop: 03/18/20 08:59 Last Admin: 02/19/20 08:01 Dose: 0.4 mg Documented by: Umeclidinium [place] (Incruse Ellipta) 1 puffs INH QAM [facility] Stop: 03/18/20 08:59 Last Admin: 02/19/20 07:58 Dose: 1 puffs Documented by: Warfarin Sodium (Coumadin) 5 mg PO DAILY@1600 [facility] Stop: 03/19/20 15:59 Last Admin: 02/18/20 17:16 Dose: 5 mg Documented by: (1) COPD (chronic obstructive pulmonary disease) COPD type: unspecified COPD Qualified Code(s): J44.9 - Chronic obstructive pulmonary disease, unspecified
[2020-02-19] MEDS: NICOTINE 14 MG/24 HR PATCH TD SCH (16:01)
[2020-02-19] MEDS: WARFARIN SOD 5 MG TAB PO SCH (16:03)
--- NOTE | 2020-02-19 16:30 | Electrocardiogram Report ---
Test Reason : Blood Pressure : / mmHG Vent. Rate : 069 BPM Atrial Rate : 069 BPM P-R Int : 164 ms QRS Dur : 112 ms QT Int : 392 ms P-R-T Axes : 068 039 046 degrees QTc Int : 420 ms Normal sinus rhythm Normal ECG When compared with ECG of 18-FEB-2020 07:20, No significant change was found Confirmed by Christian Cunningham ([id number]) on 02/19/2020 4:30:15 PM Referred By: REFERRED SELF Confirmed By:Christian Cunningham
[2020-02-19] MEDS ORDERED: HYDROmorphone INJ 0.5 MG/0.5 ML SYR IV ONE (17:30)
[2020-02-19] MEDS ORDERED: TRAMADOL HCL 50 MG TABLET PO STA (19:38)
[2020-02-19] MEDS: AMITRIPTYLINE HCL 50 MG TAB PO SCH (20:06)
[2020-02-19] MEDS: LORazepam 0.5 MG TAB PO PRN (21:47)
[2020-02-20] MEDS: OXYCODONE HCL IR 5 MG TAB (IMMEDIATE RELEASE) PO PRN ×4 (01:40→14:19)
[2020-02-20] MEDS ORDERED: TRAMADOL HCL 50 MG TABLET PO STA (01:45)
[2020-02-20 08:12] LABS: INR 1.8 (0.9-1.1); Prothrombin Time 18.1 Seconds (9.0-12.0)
[2020-02-20] MEDS: SENNA 8.6 MG TAB PO SCH (08:13)
[2020-02-20] MEDS: FOLIC ACID 1 MG TAB PO SCH (08:13)
[2020-02-20] MEDS: ISOSORBIDE MONO EXTENDED REL 30 MG TABCR PO SCH (08:13)
[2020-02-20] MEDS: MAGNESIUM OXIDE 400 MG TAB PO SCH (08:13)
[2020-02-20] MEDS: DULOXETINE HCL 60 MG CAP PO SCH (08:14)
[2020-02-20] MEDS: PANTOprazole 40 MG TAB PO SCH (08:14)
[2020-02-20] MEDS: UMECLIDINIUM BROMIDE 62.5MCG/BLISTER 7 PUFFS/INHALER INH SCH (08:14)
[2020-02-20] MEDS: FLUTICASONE/VILANTEROL 200/25MCG 14 PUFFS/INHALER INH SCH (08:15)
[2020-02-20] MEDS: SUCRALFATE 1 GM/10 ML UDC PO SCH ×2 (08:15→12:24)
[2020-02-20] MEDS: ASPIRIN 81 MG ECTAB PO SCH (08:16)
[2020-02-20] MEDS: TAMSULOSIN HCL 0.4 MG CAP PO SCH (08:17)
[2020-02-20] MEDS: SPIRONOLACTONE 25 MG TAB PO SCH (08:17)
[2020-02-20] MEDS: LACTOBACILLUS ACIDOPHILUS (FLORANEX) TAB PO SCH (08:17)
[2020-02-20] MEDS: ATORVASTATIN 40 MG TAB PO SCH (08:17)
[2020-02-20] MEDS: POTASSIUM CHLORIDE 20 MEQ TABCR PO SCH (08:18)
[2020-02-20] MEDS: GABAPENTIN 300 MG CAP PO SCH ×2 (08:18→14:20)
[2020-02-20] MEDS: FINASTERIDE 5 MG TAB PO SCH (08:19)
[2020-02-20] MEDS: DOCUSATE SODIUM 100 MG CAP PO SCH (08:19)
[2020-02-20] MEDS: CYCLOBENZAPRINE HCL 10 MG TAB PO SCH (08:19)
[2020-02-20] MEDS: POLYETHYLENE (MIRALAX) 17 GM PACK PO SCH (08:20)
[2020-02-20] MEDS: NICOTINE 14 MG/24 HR PATCH TD SCH (08:20)
[2020-02-20] MEDS: INSULIN ASPART 100 UNITS/ML 3 ML PEN SC SCH ×2 (08:22→12:24)
[2020-02-20] MEDS: METOPROLOL SUCC 50MG EXT REL TAB PO SCH (08:24)
[2020-02-20] MEDS: FUROSEMIDE 40 MG in SYRINGE 0 ML IV SCH (08:28)
[2020-02-20] MEDS: cefTRIAXone SODIUM 2,000 MG in DEXTROSE 5% 50 ML IV SCH (10:19)
--- NOTE | 2020-02-20 12:11 | Hospitalist Progress Note ---
Date of Service February 20, 2020 Assessment & Plan (1) Acute on chronic diastolic heart failure: Came in with 17 pounds weight gain since the last month Chest x-ray did show congestive changes Noted to have increasing leg edema Started with intravenous Lasix 40 mg twice daily No acute symptoms Has been diuresing enough and lost about 5 kg since admission We will continue current dose of Lasix and monitor. Has been diuresing enough We will continue current dose of Lasix UTI Recurrent UTI due to chronic fontaine catheter E. coli UTI and sensitive to ceftriaxone Fontaine catheter was changed yesterday Put him on oral ampicillin and probiotics on discharge (2) Left-sided chest pain: Left-sided chest pain No EKG changes and troponins are not elevated Likely noncardiac No more chest pain Right upper quadrant pain New complaints from this morning Has had CT of the abdomen and ultrasound of the gallbladder during recent admission Requesting if he can see the tank filler Appreciate GI input and recommendation H. pylori antigen test has been pending Will be discharged this afternoon (3) History of pulmonary embolism: On Coumadin Came out with supratherapeutic INR of more than 9 Received intravenous vitamin K in the ER Coumadin is on hold Monitor INR-therapeutic today on 02/18/2020 We will restart Coumadin INR remains therapeutic (4) DM type 2 (diabetes mellitus, type 2): We will put him on sliding scale insulin coverage (5) COPD (chronic obstructive pulmonary disease): Has COPD with history of respiratory failure No acute exacerbation at this time (6) Chronic pain disorder: History of chronic pain disorder involving the back pain with radiation Pain in the right leg and pain secondary to diabetic neuropathy History of narcotic dependence Will increase oral pain medication just for a day or 2 while in the hospital We will discharge on current outpatient dose of narcotic We will make an appointment with outpatient pain therapist and primary care provider on discharge He will be given his usual outpatient dose of narcotics on discharge Pain he seems to be controlled Other significant medical conditions remained stable DVT prophylaxis Has been on Coumadin and INR is supratherapeutic CODE STATUS Full Likely discharge this afternoon Admission and Anticipated Discharge Date Admission Date: February 17, 2020 Subjective The patient was seen and examined in medical telemetry unit He was admitted yesterday with increasing weight gain, increasing back and leg pain and increased INR of more than 9 He complains to have lots of pain this morning especially at the back and radiation to the leg Denies any chest pain or palpitation Generally weak and lethargic 02/18/2020 The patient was seen and examined in medical telemetry unit He complains to have right upper quadrant pain, 10 out of 10 on a scale of 0-10 without any associated symptoms Generally weak and lethargic 02/19/2020 The patient was seen and examined in medical telemetry unit He complains of epigastric and right upper quadrant pain and was seen by tank filler Denies any other significant symptoms 02/20/2020 Patient was seen and examined in medical telemetry unit He has been complaining of pain in the abdomen and back as before His complaints remain the same as on admission Denies any shortness of breath, chest pain or palpitation He will be discharged this afternoon Review of Systems Review of Systems: All systems reviewed and are unremarkable except as noted below Gastrointestinal: + abdominal pain (Right upper quadrant pain) Musculoskeletal: + back pain (With radiation to legs) and + joint pain (Right leg) Physical Exam Physical Exam: Lying in bed with moderate distress due to pain over right upper quadrant Constitutional: well developed, well nourished, + acute distress (Back pain), + ill appearing and + morbidly obese Eyes: PERRL, conjunctivae normal, anicteric sclerae ENMT: external ear and nose normal, oropharynx normal Neck: trachea midline, no thyromegaly Respiratory: normal respiratory effort; no respiratory distress Auscultation: lungs clear to auscultation bilaterally and + diminished lung sounds; no crackles (Minimal to no crackles at the bases) Cardiovascular: Rate/Rhythm: regular rate and regular rhythm Heart Sounds: no murmur Gastrointestinal (Abdomen): Inspection/Auscultation: + abdomen distended and normal bowel sounds Percussion/Palpation: abdomen soft; abdomen nontender (Questionable tenderness involving the right upper quadrant) and no guarding Musculoskeletal: Chronic pain involving the back and also right lower leg Neurologic: moves all extremities; no focal motor deficits Lymphatic: no cervical or axillary lymphadenopathy Results & Data Results & Data ([facility]) Vital Signs (Past 12 Hours) Vital Signs Temp Pulse Pulse Resp BP Pulse Ox 02/20/20 11:20 36.8 C 77 18 127/73 94 02/20/20 07:36 36.7 C 77 18 128/71 92 02/20/20 07:26 78 02/20/20 04:00 36.7 C 76 18 118/69 95 Laboratory Results Medications Administered Current Inpatient Medications Acetaminophen (Tylenol) 650 mg PO Q4H PRN PRN Reason: Pain or Fever Stop: 03/18/20 03:05 Albuterol (Ventolin Hfa) 2 puffs INH Q4 PRN PRN Reason: Dyspnea Stop: 03/18/20 03:05 Albuterol (Duoneb) 3 ml INH QID PRN PRN Reason: Shortness Of Breath Or Wheezing Stop: 03/18/20 03:05 Albuterol (Combivent Respimat) 1 puffs INH QID PRN PRN Reason: Shortness Of Breath Stop: 03/18/20 08:59 Amitriptyline HCl (Elavil) 50 mg PO HS [facility] Stop: 03/18/20 20:59 Last Admin: 02/19/20 20:06 Dose: 50 mg Documented by: Aspirin (Ecotrin Ectab) 81 mg PO QAM [facility] Stop: 03/18/20 08:59 Last Admin: 02/20/20 08:16 Dose: 81 mg Documented by: Atorvastatin Calcium (Lipitor) 80 mg PO DAILY [facility] Stop: 03/18/20 08:59 Last Admin: 02/20/20 08:17 Dose: 80 mg Documented by: Benzonatate (Tessalon Perle) 100 mg PO TID PRN PRN Reason: Cough Stop: 03/18/20 03:05 Cyclobenzaprine HCl (Flexeril) 10 mg PO BID [facility] Stop: 03/18/20 08:59 Last Admin: 02/20/20 08:19 Dose: 10 mg Documented by: Dextrose (Dextrose 50%) 25 - 50 ml IV UD PRN; Protocol PRN Reason: Hypoglycemia Protocol Stop: 03/18/20 03:29 Docusate Sodium (Colace) 100 mg PO BID [facility] Stop: 03/20/20 20:59 Last Admin: 02/20/20 08:19 Dose: 100 mg Documented by: Duloxetine HCl (Cymbalta) 60 mg PO DAILY [facility] Stop: 03/18/20 08:59 Last Admin: 02/20/20 08:14 Dose: 60 mg Documented by: Finasteride (Proscar) 5 mg PO QAM [facility] Stop: 03/18/20 08:59 Last Admin: 02/20/20 08:19 Dose: 5 mg Documented by: Fluticasone Propionate (Flonase) 2 sprays NA DAILY PRN PRN Reason: Allergy Symptoms Stop: 03/18/20 03:05 Fluticasone/Vilanterol (Breo Ellipta 200/25 Mcg Inh) 1 puffs INH QAM [facility] Stop: 03/18/20 08:59 Last Admin: 02/20/20 08:15 Dose: 1 puffs Documented by: Folic Acid (Folvite) 1 mg PO DAILY [facility] Stop: 03/18/20 08:59 Last Admin: 02/20/20 08:13 Dose: 1 mg Documented by: Gabapentin (Neurontin) 600 mg PO TID [facility] Stop: 03/18/20 08:59 Last Admin: 02/20/20 08:18 Dose: 600 mg Documented by: Glucagon (Glucagen) 1 mg SQ UD PRN; Protocol PRN Reason: Hypoglycemia Protocol Stop: 03/18/20 03:29 Glucose (Glucose 40%) 15 - 30 gm PO UD PRN; Protocol PRN Reason: Hypoglycemia Protocol Stop: 03/18/20 03:29 Glucose (Dex4 Glucose) 4 - 8 tabs PO UD PRN; Protocol PRN Reason: Hypoglycemia Protocol Stop: 03/18/20 03:29 Hydroxyzine HCl (Vistaril) 25 mg PO QID PRN PRN Reason: Anxiety Stop: 03/18/20 03:05 Last Admin: 02/19/20 21:47 Dose: 25 mg Documented by: Furosemide 40 mg/ Syringe 4 mls @ 4 mls/min IV BID17 [facility] Stop: 03/18/20 08:59 Last Admin: 02/20/20 08:28 Dose: 4 mls/min Documented by: Ceftriaxone Sodium 2,000 mg/ (Dextrose) 70 mls @ 140 mls/hr IV Q24H [facility] Stop: 02/28/20 09:59 Last Admin: 02/20/20 10:19 Dose: 140 mls/hr Documented by: Insulin Aspart (Novolog Flexpen) 0 units SC ACHS [facility] Stop: 03/18/20 07:29 Last Admin: 02/20/20 08:22 Dose: 6 units Documented by: Isosorbide Mononitrate (Imdur Extended Rel) 30 mg PO QAM [facility] Stop: 03/18/20 08:59 Last Admin: 02/20/20 08:13 Dose: 30 mg Documented by: Lactobacillus Acidophilus (Floranex) 1 tab PO BID [facility] Stop: 03/18/20 08:59 Last Admin: 02/20/20 08:17 Dose: 1 tab Documented by: Lorazepam (Ativan) 0.5 mg PO TID PRN PRN Reason: Anxiety Stop: 03/18/20 03:05 Last Admin: 02/19/20 21:47 Dose: 0.5 mg Documented by: Magnesium Oxide (Mag-Ox) 400 mg PO DAILY [facility] Stop: 03/18/20 08:59 Last Admin: 02/20/20 08:13 Dose: 400 mg Documented by: Metoprolol Succinate (Toprol Xl) 50 mg PO BID [facility] Stop: 03/18/20 08:59 Last Admin: 02/20/20 08:24 Dose: 50 mg Documented by: Miscellaneous (Carbohydrates For Hypoglycemia) 15 - 30 gm PO UD PRN PRN Reason: Hypoglycemia Treatment Stop: 03/18/20 03:29 Miscellaneous (Remove Nicoderm Patch) 1 ea N/A DAILY@0859 [facility] Stop: 03/21/20 08:58 Last Admin: 02/20/20 08:15 Dose: 1 ea Documented by: Nicotine (Nicoderm Cq) 14 mg TD QAM [facility] Stop: 03/20/20 15:14 Last Admin: 02/20/20 08:20 Dose: 14 mg Documented by: Nitroglycerin (Nitrostat) 0.4 mg SL UD PRN PRN Reason: Chest Pain Stop: 03/18/20 03:05 Nystatin (Mycostatin) 1 appln EXT TID PRN PRN Reason: Skin Irritation Stop: 03/18/20 03:05 Ondansetron HCl (Zofran) 4 mg IV Q6H PRN PRN Reason: Nausea Stop: 03/18/20 03:05 Oxycodone HCl (Roxicodone Immediate Rel) 10 mg PO Q4H PRN PRN Reason: Pain Stop: 03/02/20 03:17 Last Admin: 02/20/20 10:19 Dose: 10 mg Documented by: Pantoprazole Sodium (Protonix) 40 mg PO BID [facility] Stop: 03/20/20 20:59 Last Admin: 02/20/20 08:14 Dose: 40 mg Documented by: Polyethylene Glycol (Miralax Powder Packet) 17 gm PO DAILY PRN PRN Reason: Constipation Stop: 03/18/20 03:05 Polyethylene Glycol (Miralax Powder Packet) 17 gm PO TID [facility] Stop: 03/20/20 13:59 Last Admin: 02/20/20 08:20 Dose: 17 gm Documented by: Potassium Chloride (Klor-Con M20) 20 meq PO BID [facility] Stop: 03/18/20 08:59 Last Admin: 02/20/20 08:18 Dose: 20 meq Documented by: Sennosides (Senokot) 17.2 mg PO BID [facility] Stop: 03/18/20 08:59 Last Admin: 02/20/20 08:13 Dose: 17.2 mg Documented by: Spironolactone (Aldactone) 25 mg PO QAM [facility] Stop: 03/18/20 08:59 Last Admin: 02/20/20 08:17 Dose: 25 mg Documented by: Sucralfate (Carafate) 1 gm PO QID [facility] Stop: 03/20/20 12:59 Last Admin: 02/20/20 08:15 Dose: 1 gm Documented by: Tamsulosin HCl (Flomax) 0.4 mg PO QAM [facility] Stop: 03/18/20 08:59 Last Admin: 02/20/20 08:17 Dose: 0.4 mg Documented by: Umeclidinium [place] (Incruse Ellipta) 1 puffs INH QAM [facility] Stop: 03/18/20 08:59 Last Admin: 02/20/20 08:14 Dose: 1 puffs Documented by: Warfarin Sodium (Coumadin) 5 mg PO DAILY@1600 [facility] Stop: 03/19/20 15:59 Last Admin: 02/19/20 16:03 Dose: 5 mg Documented by: (1) COPD (chronic obstructive pulmonary disease) COPD type: unspecified COPD Qualified Code(s): J44.9 - Chronic obstructive pulmonary disease, unspecified
[2020-02-20] MEDS ORDERED: cephALEXin 500 MG CAP PO SCH (13:00)
[2020-02-20] MEDS ORDERED: HYDROmorphone INJ 0.5 MG/0.5 ML SYR IV ONE (13:58)
--- NOTE | 2020-02-20 17:51 | Discharge Summary ---
Date of Service February 20, 2020 Admission HPI Per Admitting Provider DICTATED BY: Everardo Ibarra MD DATE OF ADMISSION: 02/17/2020 CHIEF COMPLAINT: Chest pain, abdominal pain, elevated INR. HISTORY OF PRESENT ILLNESS: This is a 49-year-old male with past medical history significant for right-sided heart failure, history of PE, on Coumadin, hypertension, COPD, chronic pain with opiate dependence, mood disorder, tobacco abuse, history of ESBL UTI, history of sepsis secondary to urinary tract infection, anemia, morbid obesity, noncompliant with medication and frequent hospitalizations. The patient also had traumatic subdural hematoma and subarachnoid hematoma in the setting of Coumadin use and was admitted at [facility] from 11/18/2019-12/04/2019. He was also recently treated for CHF and UTI. The patient has been restarted on Coumadin. He has chronic indwelling Fontaine catheter, last time he has had some hematuria, but patient was discharged on ampicillin for his enterococcus UTI. The patient says he is having on and off blood in his Fontaine, but currently it is clear. Complains of chest pain, somewhat different than his usual chest pains and also complains of right upper quadrant abdominal pain, severe in nature since last 2 days and was not getting better, not eating, appetite is down because of the abdominal pain and complains of nausea. Says he is somewhat constipated. He moved his bowels before he came to the hospital. He says his helps him wiping the bowel movement and she noticed some blood. Has his chronic cough on and off. Has chronic shortness of breath on exertion. He uses a cane to ambulate. Denies any fever, chills. He says smell of food and taste of food is not that great. Denies any headache, no blurred vision, no earache, no runny nose, no sore throat, no dysphagia. No rash. Requesting for pain medication. His INR is greater than 9 and patient says he wants to change the Coumadin to some of the newer medications. He says he gained weight about 17 pounds in the last few days. He says he is compliant with his medications. Admission Exam Per Admitting Provider GENERAL: The patient is obese, currently not in acute distress. VITAL SIGNS: Temperature 37, pulse 84, respiratory rate 18, blood pressure 134/70, oxygen 97% on 2 liters. HEENT: No pallor. Pupils equal, round, reactive to light. NECK: No JVD, no neck masses. CARDIOVASCULAR: S1, S2 heard, regular rate and rhythm, no murmur, no gallop. RESPIRATORY SYSTEM: Normal AP diameter. Clear to auscultation bilaterally. No accessory muscle use. Mild bilateral crackles heard. No wheezing. ABDOMEN: Soft, bowel sounds sluggish. Right upper quadrant tenderness present, no guarding, no rigidity. No distention. CENTRAL NERVOUS SYSTEM: Cranial nerves II-XII grossly intact, nonfocal. EXTREMITIES: Bilateral lower extremity gross edema present and chronic skin changes seen. Principal Diagnosis Acute on chronic diastolic heart failure, recurrent UTI secondary to chronic Fontaine catheter, history of pulmonary embolism on Coumadin, chronic pain Discharge Exam Constitutional well developed, well nourished, + acute distress (Back pain), + ill appearing and + morbidly obese Eyes PERRL, conjunctivae normal, anicteric sclerae ENMT external ear and nose normal, oropharynx normal Neck trachea midline, no thyromegaly Respiratory normal respiratory effort; no respiratory distress Auscultation: lungs clear to auscultation bilaterally and + diminished lung sounds; no crackles (Minimal to no crackles at the bases) Cardiovascular Rate/Rhythm: regular rate and regular rhythm Heart Sounds: no murmur Gastrointestinal (Abdomen) Inspection/Auscultation: + abdomen distended and normal bowel sounds Percussion/Palpation: abdomen soft; abdomen nontender (Questionable tenderness involving the right upper quadrant) and no guarding Neurologic moves all extremities; no focal motor deficits Lymphatic no cervical or axillary lymphadenopathy Discharge Data Allergies Allergy/AdvReac Type Severity Reaction Status Date / Time fentanyl Allergy Intermediate RASH/HIVES/SKIN Verified 02/17/20 00:25 REDNESS ibuprofen Allergy Nausea Unverified 02/17/20 00:25 acetaminophen AdvReac Intermediate Unknown Verified 02/17/20 00:25 valproic acid AdvReac Intermediate PANCREATITS Verified 02/17/20 00:25 Consultations 02/17/20 01:12 ED Decision to Admit Stat 02/17/20 03:06 Consult Case Management - Discharge Planning Routine 02/19/20 08:02 Consult Gastroenterology Routine Ordered Studies 02/17/20 02:14 CT abd pelvis wo con Urgent Hospital Course (1) Acute on chronic diastolic heart failure: Came in with 17 pounds weight gain since the last month Chest x-ray did show congestive changes Noted to have increasing leg edema Started with intravenous Lasix 40 mg twice daily No acute symptoms Has been diuresing enough and lost about 5 kg since admission We will continue current dose of Lasix and monitor. Has been diuresing enough We will continue current dose of Lasix UTI Recurrent UTI due to chronic fontaine catheter E. 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 pylori antigen test has been pending Will be discharged this afternoon (3) History of pulmonary embolism: On Coumadin Came out with supratherapeutic INR of more than 9 Received intravenous vitamin K in the ER Coumadin is on hold Monitor INR-therapeutic today on 02/18/2020 We will restart Coumadin INR remains therapeutic (4) DM type 2 (diabetes mellitus, type 2): We will put him on sliding scale insulin coverage (5) COPD (chronic obstructive pulmonary disease): Has COPD with history of respiratory failure No acute exacerbation at this time (6) Chronic pain disorder: History of chronic pain disorder involving the back pain with radiation Pain in the right leg and pain secondary to diabetic neuropathy History of narcotic dependence Will increase oral pain medication just for a day or 2 while in the hospital We will discharge on current outpatient dose of narcotic We will make an appointment with outpatient pain therapist and primary care provider on discharge He will be given his usual outpatient dose of narcotics on discharge Pain he seems to be controlled Other significant medical conditions remained stable DVT prophylaxis Has been on Coumadin and INR is supratherapeutic CODE STATUS Full Likely discharge this afternoon Total Time Total Time Spent Total Time Spent (In Minutes): 40 minutes Total Time Includes: Examination of the Patient, Discharge Planning, Medication Reconciliation and Communication With Other Providers Discharge Plan Discharge Items Patient Disposition: Home - Home Health Services Reason For Visit: CHEST PAIN Discharge Diagnosis: Acute on chronic diastolic heart failure, recurrent UTI secondary to chronic Fontaine catheter, history of pulmonary embolism on Coumadin, chronic pain Condition on Discharge: Good Activity: Resume your previous activity Non-emergency contact: Primary Care Provider Call non-emergency contact if: you have any medication questions and your symptoms worsen Follow-up/Referrals: Sylwia De La Rosa MD [Primary Care Provider] - 02/21/20 12:00 pm (02/21/2020 12:00 PM Provider Roberto Askew MD Department General Internal Medicine [facility] clinic has been notified and pain therapy appointment has been made. You have an appointment schedule with [facility] on 03/05/2020 at 2PM. You will need to submit a urine sample. Please bring a list of medications or the medication bottles. Please know that they may or may prescribe medications at this visit because your last visit was in September. If you do not wish to keep this appointment or need to change the date, please call . ) Diet: Heart Healthy and Low Sodium (2gm) Fluids: 1800ml (7 cups) Addtl Attending Provider Instructions: Please take precaution to avoid falls Take your medications as prescribed Please keep appointments with your primary care provider and the specialist Pending Studies at Discharge: Yes Studies:: Stool for HP antigen Stand-Alone Forms: My [facility] Unmetric, Smoking Cessation Medications and DC Order Prescriptions: New cephalexin 500 mg Capsule 500 mg PO QID 4 Days Qty: 16 RF: 0 pantoprazole 40 mg Tablet,Delayed Release (Dr/Ec) 40 mg PO BID 30 Days Qty: 60 RF: 0 nicotine 7 mg/24 hr Patch 24 Hour 14 mg transdermal QAM 30 Days Qty: 30 RF: 0 sucralfate [Carafate] 1 gram tablet 1 gm PO ACHS 28 Days Qty: 120 RF: 0 bisacodyl [Dulcolax (bisacodyl)] 10 mg suppository 10 mg NC DAILY PRN (Reason: constipation) Qty: 28 RF: 0 Continued polyethylene glycol 3350 [Miralax] 17 gram powder in packet 17 g PO DAILY RF: 0 nitroglycerin [Nitrostat] 0.4 mg tablet, sublingual 0.4 mg Sublingual DIRECTED PRN (Reason: CHEST PAIN) RF: 0 nystatin 100,000 unit/gram Powder 1 applic TOPICAL TID PRN (Reason: Skin Irritation) RF: 0 cyclobenzaprine 10 mg Tablet 10 mg PO BID RF: 0 ipratropium-albuterol 0.5 mg-3 mg(2.5 mg base)/3 mL Solution For Nebulization 3 ml INHALATION QID PRN (Reason: Shortness Of Breath Or Wheezing) RF: 0 magnesium oxide 400 mg (241.3 mg magnesium) Tablet 400 mg PO DAILY RF: 0 docusate sodium 100 mg Capsule 100 mg PO BID RF: 0 Lactinex 1 million cell Tablet,Chewable 1 tab PO BID RF: 0 gabapentin 300 mg capsule 600 mg PO TID 30 Days Qty: 180 RF: 0 duloxetine 20 mg Capsule,Delayed Release(Dr/Ec) 60 mg PO DAILY 30 Days Qty: 90 RF: 0 hydroxyzine HCl 25 mg tablet 25 mg PO QID PRN (Reason: Anxiety) RF: 0 fluticasone propionate 50 mcg/actuation spray,suspension 2 spray Intranasal DAILY PRN (Reason: Allergy Symptoms) RF: 0 aspirin [Ecotrin Low Strength] 81 mg tablet,delayed release (DR/EC) 81 mg PO QAM RF: 0 Spiriva with HandiHaler 18 mcg capsule, w/inhalation device 1 puff inhalation QAM RF: 0 finasteride 5 mg tablet 5 mg PO QAM RF: 0 tamsulosin [Flomax] 0.4 mg Capsule 0.4 mg PO QAM RF: 0 metoprolol succinate 50 mg Tablet Extended Release 24 Hr 50 mg PO BID RF: 0 isosorbide mononitrate 30 mg Tablet Extended Release 24 Hr 30 mg PO QAM RF: 0 spironolactone 25 mg Tablet 25 mg PO QAM RF: 0 Breo Ellipta 200-25 mcg/dose Blister With Device 1 inh INHALATION QAM RF: 0 glipizide 5 mg tablet 5 mg PO BID Qty: 60 RF: 1 atorvastatin 80 mg tablet 80 mg PO DAILY RF: 0 sennosides [senna] 8.6 mg Tablet 17.2 mg PO BID RF: 0 folic acid 1 mg Tablet 1 mg PO DAILY RF: 0 furosemide [Lasix] 40 mg tablet 40 mg PO BID RF: 0 lorazepam 0.5 mg tablet 0.5 mg PO TID PRN (Reason: Anxiety) RF: 0 Combivent Respimat 20-100 mcg/actuation Mist 1 puff INHALATION QID RF: 0 warfarin [Coumadin] 5 mg Tablet 5 mg PO DAILY RF: 0 potassium chloride 20 mEq Tablet Extended Release 20 meq PO BID RF: 0 amitriptyline 50 mg Tablet 50 mg PO HS RF: 0 benzonatate 100 mg Capsule 100 mg PO TID PRN (Reason: Cough) RF: 0 albuterol sulfate 90 mcg/actuation Hfa Aerosol Inhaler 2 puff INHALATION Q4 PRN (Reason: Dyspnea) RF: 0 oxycodone 5 mg tablet 5 mg PO Q4H PRN (Reason: Pain) 5 Days Qty: 15 RF: 0 Discontinued omeprazole 20 mg Tablet,Delayed Release (Dr/Ec) 20 mg PO DAILY RF: 0 Discharge Orders: Discharge Order (Routine); Ordered 02/20/20 Ordered By: Augustus Vasquez Admission Data Admit Date/Time: 02/17/20 02:14 Attending Provider: Augustus Vasquez Admit Provider: Everardo Ibarra Primary Care Provider: Sylwia De La Rosa Other Providers: [facility],Home [facility] ; Everardo Ibarra ; Eduardo Chapman Other Interventions: Discharge Summary Assessment (RN) Last Done: 02/20/20 14:16 DC Date/Time DO NOT enter until pt leaves facility: 02/20/20 14:55
== END 2020-02-20 14:55 | disposition home health service (06) | DRG 292 ==
LOC: ED 22:26 → 2W 02-17 02:14

== ENCOUNTER 2020-03-15 13:06 | Inpatient (IN) ==
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
[2020-03-15 13:30] LABS: Basophils # (auto) 0.04 K/uL (0-0.2); Basophils % (auto) 0.2 %; Eosinophils # (auto) 0.76 K/uL (0-0.5); Eosinophils % (auto) 4.7 %; Hematocrit (blood only) 37.8 % (42-52); Immature Granulocytes # (auto) 0.08 K/uL (0.00-0.02); Immature Granulocytes % (auto) 0.5 %; Lymphocytes # (auto) 2.63 K/uL (1.2-3.4); Lymphocytes % (auto) 16.3 %; Mean Corpuscular Hemoglobin 23.4 pg (25-34); Mean Corpuscular Hgb Conc 31.7 g/dL (32-36); Mean Corpuscular Volume 73.8 fL (80-100); Mean Platelet Volume 9.9 fL (7.4-10.4); Monocytes # (auto) 1.04 K/uL (0.11-0.59); Monocytes % (auto) 6.5 %; Neutrophils # (auto) 11.55 K/uL (1.4-6.5); Neutrophils % (auto) 71.8 %; Platelet Count 293 K/uL (130-400); RDW Coefficient of Variation 19.6 % (11.5-14.5); RDW Standard Deviation 53.1 fL (36.4-46.3); Red Blood Count 5.12 M/uL (4.7-6.1)
[2020-03-15 13:52] LABS: Alanine Aminotransferase 17 U/L (12-78); Albumin Level 2.7 gm/dl (3.4-5.0); Aspartate Aminotransferase 12 U/L (15-37); BUN Creatinine Ratio 5.7 (10-20); Blood Urea Nitrogen 6 mg/dl (7-18); Calcium 9.1 mg/dl (8.5-10.1); Carbon Dioxide 25 mmol/L (21-32); Chloride 105 mmol/L (98-107); Est GFR (African American) 107.1; Est GFR (Non-African American) 92.4; Glucose 110 mg/dl (70-99); Lipase 57 U/L (73-393); Potassium 4.1 mmol/L (3.5-5.1); Sodium 137 mmol/L (136-145)
[2020-03-15 13:53] LABS: Partial Thromboplastin Ratio 2.8; Prothrombin Time 59.4 Seconds (9.0-12.0)
[2020-03-15 13:56] LABS: Albumin Globulin Ratio 0.6 (0.9-2); Alkaline Phosphatase 131 U/L (45-117); Bilirubin,Total 0.3 mg/dl (0.2-1); Globulin 4.4 gm/dl (2.5-4.0); Total Protein 7.1 gm/dl (6.4-8.2); Troponin I < 0.015 ng/ml (0-0.045)
[2020-03-15 14:19] LABS: INR 6.2 (0.9-1.1)
--- NOTE | 2020-03-15 14:35 | XRay Report ---
XR chest 1V portable CLINICAL HISTORY: Atypical chest pain COMPARISON STUDY: 02/16/2020 FINDINGS: The heart is mildly enlarged. There is elevation of the interstitium consistent with mild p ulmonary vascular congestion. A small right pleural effusion is again suspected. An opacity at the le edna the left cardiophrenic angle likely secondary to a fat pad.[There is no lobar consolidation IMPRESSION: 1. Cardiomegaly and suspected mild pulmonary vascular congestion. Small right pleural effusion. ACT 112: Negative or not required by law. Electronically signed by: Luis Castro M.D. 03/15/2020 2:34 PM
[2020-03-15 14:54] LABS: Partial Thromboplastin Time 79.5 Seconds (21.0-31.0)
[2020-03-15] MEDS ORDERED: FUROSEMIDE 40 MG/4 ML VIAL IV STA (15:57)
[2020-03-15] MEDS ORDERED: cefTRIAXone SODIUM 2,000 MG/70 ML BAG IV STA (15:57)
--- NOTE | 2020-03-15 15:58 | Electrocardiogram Report ---
Test Reason : Blood Pressure : / mmHG Vent. Rate : 094 BPM Atrial Rate : 094 BPM P-R Int : 160 ms QRS Dur : 104 ms QT Int : 344 ms P-R-T Axes : 022 034 039 degrees QTc Int : 430 ms Normal sinus rhythm Nonspecific T wave abnormality Abnormal ECG When compared with ECG of 19-FEB-2020 07:13, No significant change was found Confirmed by Stanton Porter [id number]) on 03/15/2020 3:58:00 PM Referred By: REFERRED SELF Confirmed By:Stanton Porter
[2020-03-15] MEDS ORDERED: ALUMINUM/MAGNESIUM SUSP 30 ML UDC PO PRN (16:21)
[2020-03-15] MEDS ORDERED: ACETAMINOPHEN 325 MG TAB PO PRN (16:21)
[2020-03-15] MEDS ORDERED: POLYETHYLENE (MIRALAX) 17 GM PACK PO PRN (16:21)
[2020-03-15] MEDS ORDERED: NITROGLYCERIN SL 0.4 MG/TAB TAB SL PRN (16:21)
[2020-03-15] MEDS ORDERED: HYDROmorphone INJ 2 MG/ML SYR/VIAL IV STA (16:36)
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
[2020-03-15] MEDS ORDERED: GLUCOSE 40% GEL 15 GM TUBE PO PRN (17:05)
[2020-03-15] MEDS ORDERED: CARBOHYDRATES FOR HYPOGLYCEMIA PO PRN (17:05)
[2020-03-15] MEDS ORDERED: GLUCOSE 10 TABS/TUBE PO PRN (17:05)
[2020-03-15] MEDS ORDERED: GLUCAGON FOR INJ 1 MG VIAL SQ PRN (17:05)
[2020-03-15] MEDS ORDERED: DEXTROSE 50% 50 ML SYRINGE IV PRN (17:05)
[2020-03-15] MEDS ORDERED: ALBUT/IPRATROP 3MG/0.5MG NEB 3 ML VIAL INH PRN (18:11)
[2020-03-15] MEDS ORDERED: bisacodyL 10 MG SUPP PR PRN (18:11)
[2020-03-15] MEDS ORDERED: ALBUTEROL HFA 8 GM INHALER INH PRN (18:11)
[2020-03-15] MEDS ORDERED: NYSTATIN POWDER 15GM BTL EXT PRN (18:11)
[2020-03-15] MEDS ORDERED: FLUTICASONE PROPIONATE NA SPR 16 GM BTL NAE PRN (18:11)
[2020-03-15 18:19] LABS: Appearance Urine Clear (Clear); Bacteria Urine Automated Negative (Negative); Bilirubin Urine Negative (Negative); Blood Urine 2+ (Negative); Color Urine Yellow; Epithelial Cell Urine Auto 0-5 /lpf (0-5); Glucose Urine UA Negative (Negative); Ketones Urine Negative (Negative); Leukocyte Esterase Urine 2+ (Negative); Nitrite Urine Negative (Negative); Protein Urine Negative (Negative); Urobilinogen Urine Negative (Negative); WBC Urine Automated >30 /hpf (0-5)
[2020-03-15] MEDS: ALBUTEROL HFA 8 GM INHALER INH SCH (19:19)
[2020-03-15] MEDS: IPRATROPIUM BROMIDE HFA INHALER INH SCH (19:25)
[2020-03-15] MEDS: INSULIN ASPART 100 UNITS/ML 3 ML PEN SC SCH (20:15)
[2020-03-15] MEDS: PANTOprazole 40 MG TAB PO SCH (20:24)
[2020-03-15] MEDS: FUROSEMIDE 40 MG TAB PO SCH (20:24)
[2020-03-15] MEDS: SENNA 8.6 MG TAB PO SCH (20:24)
[2020-03-15] MEDS: GABAPENTIN 300 MG CAP PO SCH (20:25)
[2020-03-15] MEDS: CYCLOBENZAPRINE HCL 10 MG TAB PO SCH (20:25)
[2020-03-15] MEDS: DOCUSATE SODIUM 100 MG CAP PO SCH (20:25)
[2020-03-15] MEDS: AMITRIPTYLINE HCL 50 MG TAB PO SCH (20:25)
[2020-03-15] MEDS: METOPROLOL SUCC 50MG EXT REL TAB PO SCH (20:25)
[2020-03-15] MEDS: SUCRALFATE 1 GM TAB PO SCH ×2 (20:25→20:27)
[2020-03-15] MEDS: POTASSIUM CHLORIDE 20 MEQ TABCR PO SCH (20:26)
[2020-03-15] MEDS ORDERED: NON-FORMULARY MEDICATION (Lactobacillus Acidoph-L.Bulgar [Lactinex] 1 TAB) PO SCH (21:00)
[2020-03-16] MEDS: OXYCODONE HCL IR 5 MG TAB (IMMEDIATE RELEASE) PO PRN ×5 (01:30→20:53)
[2020-03-16] MEDS: ALBUTEROL HFA 8 GM INHALER INH SCH ×4 (07:15→19:22)
[2020-03-16] MEDS: IPRATROPIUM BROMIDE HFA INHALER INH SCH ×4 (07:16→19:22)
[2020-03-16 08:03] LABS: Basophils # (auto) 0.04 K/uL (0-0.2); Basophils % (auto) 0.3 %; Eosinophils # (auto) 0.68 K/uL (0-0.5); Eosinophils % (auto) 4.6 %; Hematocrit (blood only) 39.1 % (42-52); Immature Granulocytes # (auto) 0.06 K/uL (0.00-0.02); Immature Granulocytes % (auto) 0.4 %; Lymphocytes # (auto) 2.32 K/uL (1.2-3.4); Lymphocytes % (auto) 15.8 %; Mean Corpuscular Hgb Conc 30.7 g/dL (32-36); Mean Corpuscular Volume 74.9 fL (80-100); Mean Platelet Volume 9.9 fL (7.4-10.4); Monocytes # (auto) 1.05 K/uL (0.11-0.59); Monocytes % (auto) 7.2 %; Neutrophils # (auto) 10.53 K/uL (1.4-6.5); Neutrophils % (auto) 71.7 %; Platelet Count 302 K/uL (130-400); RDW Coefficient of Variation 19.6 % (11.5-14.5); RDW Standard Deviation 53.7 fL (36.4-46.3); Red Blood Count 5.22 M/uL (4.7-6.1); White Blood Count 14.68 K/uL (4.8-10.8)
[2020-03-16] MEDS: GABAPENTIN 300 MG CAP PO SCH ×3 (08:05→20:48)
[2020-03-16] MEDS: PANTOprazole 40 MG TAB PO SCH ×2 (08:06→20:48)
[2020-03-16] MEDS: SPIRONOLACTONE 25 MG TAB PO SCH (08:07)
[2020-03-16] MEDS: TAMSULOSIN HCL 0.4 MG CAP PO SCH (08:07)
[2020-03-16] MEDS: MAGNESIUM OXIDE 400 MG TAB PO SCH (08:07)
[2020-03-16] MEDS: DULOXETINE HCL 60 MG CAP PO SCH (08:08)
[2020-03-16] MEDS: ATORVASTATIN 40 MG TAB PO SCH (08:08)
[2020-03-16] MEDS: FOLIC ACID 1 MG TAB PO SCH (08:09)
[2020-03-16] MEDS: ISOSORBIDE MONO EXTENDED REL 30 MG TABCR PO SCH (08:09)
[2020-03-16] MEDS: FINASTERIDE 5 MG TAB PO SCH (08:09)
[2020-03-16] MEDS: ASPIRIN 81 MG ECTAB PO SCH (08:09)
[2020-03-16] MEDS: SUCRALFATE 1 GM TAB PO SCH ×4 (08:10→20:43)
[2020-03-16] MEDS: SENNA 8.6 MG TAB PO SCH ×2 (08:10→20:43)
[2020-03-16] MEDS: METOPROLOL SUCC 50MG EXT REL TAB PO SCH ×2 (08:10→20:46)
[2020-03-16] MEDS: FLUTICASONE/VILANTEROL 200/25MCG 14 PUFFS/INHALER INH SCH (08:11)
[2020-03-16] MEDS: CYCLOBENZAPRINE HCL 10 MG TAB PO SCH ×2 (08:11→20:46)
[2020-03-16] MEDS: DOCUSATE SODIUM 100 MG CAP PO SCH ×2 (08:11→20:45)
[2020-03-16] MEDS: POTASSIUM CHLORIDE 20 MEQ TABCR PO SCH ×2 (08:11→20:47)
[2020-03-16] MEDS: UMECLIDINIUM BROMIDE 62.5MCG/BLISTER 7 PUFFS/INHALER INH SCH (08:12)
[2020-03-16] MEDS: FUROSEMIDE 40 MG TAB PO SCH ×2 (08:12→20:47)
[2020-03-16 08:18] LABS: Prothrombin Time 62.6 Seconds (9.0-12.0)
[2020-03-16 08:21] LABS: INR 6.6 (0.9-1.1)
[2020-03-16 08:30] LABS: RBC Morphology Unremarkable
[2020-03-16 08:38] LABS: Calcium 9.1 mg/dl (8.5-10.1); Creatinine Clr Calc Pharmacy 167.7 ml/min; Est GFR (African American) 107.1; Est GFR (Non-African American) 92.4; Potassium 3.7 mmol/L (3.5-5.1)
[2020-03-16] MEDS: INSULIN ASPART 100 UNITS/ML 3 ML PEN SC SCH ×4 (08:48→21:04)
[2020-03-16] MEDS ORDERED: POLYETHYLENE (MIRALAX) 17 GM PACK PO SCH (09:00)
[2020-03-16] MEDS ORDERED: DAPTOMYCIN CONSULT ACTIVE PRN (14:36)
[2020-03-16] MEDS: DAPTOmycin 500 MG in SYRINGE 0 ML IV SCH (15:54)
[2020-03-16] MEDS: cefTRIAXone SODIUM 2,000 MG in DEXTROSE 5% 50 ML IV SCH (16:37)
--- NOTE | 2020-03-16 19:48 | Hospitalist Progress Note ---
Date of Service March 16, 2020 Assessment & Plan (1) Catheter-associated urinary tract infection: Chronic indwelling Lloyd catheter for urinary retention. UA showed leukocyte esterase, WBC's, RBC's. Reported fever. WBC elevated. Urine culture growing Staph sp. At risk for renal complications of vancomycin. Add IV daptomycin for MRSA coverage pending final report. (2) Chest pain: Chronic intermittent chest pain. Troponin normal. Recurrent PE very unlikely with supratherapeutic INR. (3) Chronic diastolic CHF (congestive heart failure): Continue furosemide. (4) HTN (hypertension): Continue metoprolol. (5) History of pulmonary embolism: Titrate warfarin. (6) Elevated INR: No apparent bleeding complications. No need to reverse warfarin. Follow. (7) COPD (chronic obstructive pulmonary disease): Pulmonary status stable. (8) DM type 2 (diabetes mellitus, type 2): FBS = 181. (9) Morbid obesity: Wt 202 kg. BMI 60. Has received extensive nutritional counseling in the past. Ongoing counseling / support. Heart healthy / diabetic diet. (10) Therapeutic opioid induced constipation: Bowel regimen as ordered. (11) Chronic pain: Chronic pain syndrome as extensively documented in previous records. Review of PDMP reveals multiple prescriptions for analgesics by multiple providers at multiple pharmacies. He has been seen at multiple pain clinics over the years, but has not been able to maintain a long-term relationship with any. Patient complains of various pains, some chronic and some more recent. He is well aware of the potential risks of narcotic analgesics. Currently ordered oxycodone IR 5 mg q 4 hrs PRN. He is requesting that the dose be increased to 10 mg q 4 hrs PRN. 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 Will re-assess analgesic needs in 24 hours. He understands that our service will not be able to provide maintenance Rx for narcotics at time of discharge. (12) COVID-19 ruled out: Reports fever, cough, dysgeusia at home. COVID-19 PCR was negative in December. No sick contacts. SARS-CoV-2 today negative. (13) DVT prophylaxis: On warfarin with supratherapeutic INR. (14) Discharge planning issues: Anticipated discharge to home. Internal Medicine follow-up with Dr. Askew. Admission and Anticipated Discharge Date Admission Date: March 15, 2020 Subjective Recheck for multiple problems. Patient seen in their room around 1420. Admitted yesterday with problems with Lloyd cath. New catheter placed. Had chest pain yesterday- no complaints today. Complains of diffuse aches and pains, abdominal pain, chronic foot pain. Reports fever, cough, dysgeusia at home. COVID-19 PCR was negative in December. No sick contacts. Review of Systems: Constitutional- as noted above. Cardiac- as noted above. Pulmonary- as noted above. GI- constipated; anorexic; no nausea, vomiting, diarrhea, melena, hematochezia. - Lloyd cath. Otherwise, as noted above. Physical Exam Constitutional: + morbidly obese; no acute distress Respiratory: no respiratory distress Auscultation: + wheezes Cardiovascular: Rate/Rhythm: regular rate and regular rhythm Heart Sounds: no murmur (exam limited) Vessels: no JVD Extremities: + edema (1-2+ pretibal); no calf tenderness Gastrointestinal (Abdomen): normal bowel sounds, soft, nontender, no hepatosplenomegaly Musculoskeletal: Extremities: no cyanosis Skin: no rashes, warm and dry Psychiatric: Orientation: alert and oriented x 3 Genitourinary: + bladder abnormality (Lloyd cath draining clear urine) Results & Data Results & Data ([facility]) Vital Signs (Past 12 Hours) Vital Signs Temp Pulse Pulse Resp BP Pulse Ox 03/16/20 16:33 36.6 C 86 18 94/60 L 94 03/16/20 16:07 82 03/16/20 11:46 36.9 C 81 20 132/71 91 03/16/20 08:15 37.0 C 81 18 113/65 96 03/16/20 08:00 75 Laboratory Results Laboratory Results - last 24 hr 03/15/20 03/16/20 03/16/20 20:07 07:42 07:42 WBC 14.68 H RBC 5.22 Hgb 12.0 L Hct 39.1 L MCV 74.9 L MCH 23.0 L MCHC 30.7 L RDW Std Deviation 53.7 H RDW Coeff of Megan 19.6 H Plt Count 302 MPV 9.9 Immature Gran % (Auto) 0.4 Neut % (Auto) 71.7 Lymph % (Auto) 15.8 [place] % (Auto) 7.2 Eos % (Auto) 4.6 Baso % (Auto) 0.3 Neut # (Auto) 10.53 H Lymph # (Auto) 2.32 [place] # (Auto) 1.05 H Eos # (Auto) 0.68 H Baso # (Auto) 0.04 Immature Gran # (Auto) 0.06 H RBC Morphology Unremarkable PT 62.6 H INR 6.6 H* Sodium Potassium Chloride Carbon Dioxide Anion Gap BUN Creatinine Est Cr Clr Drug Dosing Est GFR ( Amer) Est GFR (Non-Af Amer) BUN/Creatinine Ratio Glucose POC Glucose 146 H Calcium COVID-19 PCR SARS-CoV-2 RNA (RT-PCR) 03/16/20 03/16/20 03/16/20 07:42 07:53 11:52 WBC RBC Hgb Hct MCV MCH MCHC RDW Std Deviation RDW Coeff of Megan Plt Count MPV Immature Gran % (Auto) Neut % (Auto) Lymph % (Auto) [place] % (Auto) Eos % (Auto) Baso % (Auto) Neut # (Auto) Lymph # (Auto) [place] # (Auto) Eos # (Auto) Baso # (Auto) Immature Gran # (Auto) RBC Morphology PT INR Sodium 139 Potassium 3.7 Chloride 104 Carbon Dioxide 28 Anion Gap 6.0 BUN 8 Creatinine 0.96 Est Cr Clr Drug Dosing 167.7 Est GFR ( Amer) 107.1 Est GFR (Non-Af Amer) 92.4 BUN/Creatinine Ratio 8.0 L Glucose 133 H POC Glucose 181 H 123 H Calcium 9.1 COVID-19 PCR SARS-CoV-2 RNA (RT-PCR) 03/16/20 03/16/20 03/16/20 16:35 Unknown Unknown WBC RBC Hgb Hct MCV MCH MCHC RDW Std Deviation RDW Coeff of Megan Plt Count MPV Immature Gran % (Auto) Neut % (Auto) Lymph % (Auto) [place] % (Auto) Eos % (Auto) Baso % (Auto) Neut # (Auto) Lymph # (Auto) [place] # (Auto) Eos # (Auto) Baso # (Auto) Immature Gran # (Auto) RBC Morphology PT INR Sodium Potassium Chloride Carbon Dioxide Anion Gap BUN Creatinine Est Cr Clr Drug Dosing Est GFR ( Amer) Est GFR (Non-Af Amer) BUN/Creatinine Ratio Glucose POC Glucose 173 H Calcium COVID-19 PCR NEGATIVE SARS-CoV-2 RNA (RT-PCR) Cancelled (1) Chest pain Chest pain type: unspecified Qualified Code(s): R07.9 - Chest pain, unspecified (2) COPD (chronic obstructive pulmonary disease) COPD type: unspecified COPD Qualified Code(s): J44.9 - Chronic obstructive pulmonary disease, unspecified (3) HTN (hypertension) Hypertension type: essential hypertension Qualified Code(s): I10 - Essential (primary) hypertension
[2020-03-16] MEDS: POLYETHYLENE (MIRALAX) 17 GM PACK PO SCH (20:46)
[2020-03-16] MEDS: AMITRIPTYLINE HCL 50 MG TAB PO SCH (20:46)
[2020-03-16] MEDS: LORazepam 0.5 MG TAB PO PRN (23:09)
[2020-03-17] MEDS: OXYCODONE HCL IR 5 MG TAB (IMMEDIATE RELEASE) PO PRN ×8 (00:53→22:21)
[2020-03-17] MEDS: ALBUTEROL HFA 8 GM INHALER INH SCH ×4 (07:07→19:33)
[2020-03-17] MEDS: IPRATROPIUM BROMIDE HFA INHALER INH SCH ×4 (07:07→19:34)
[2020-03-17 07:19] LABS: Basophils # (auto) 0.03 K/uL (0-0.2); Basophils % (auto) 0.2 %; Eosinophils # (auto) 0.57 K/uL (0-0.5); Eosinophils % (auto) 3.8 %; Hematocrit (blood only) 38.9 % (42-52); Hemoglobin 11.7 g/dL (14.0-18.0); Immature Granulocytes # (auto) 0.05 K/uL (0.00-0.02); Immature Granulocytes % (auto) 0.3 %; Mean Corpuscular Hemoglobin 22.6 pg (25-34); Mean Corpuscular Hgb Conc 30.1 g/dL (32-36); Mean Corpuscular Volume 75.2 fL (80-100); Monocytes # (auto) 0.89 K/uL (0.11-0.59); Monocytes % (auto) 5.9 %; Neutrophils # (auto) 11.09 K/uL (1.4-6.5); Neutrophils % (auto) 73.8 %; Platelet Count 318 K/uL (130-400); RDW Coefficient of Variation 19.4 % (11.5-14.5); RDW Standard Deviation 53.7 fL (36.4-46.3); Red Blood Count 5.17 M/uL (4.7-6.1); White Blood Count 15.03 K/uL (4.8-10.8)
[2020-03-17 07:39] LABS: INR 4.5 (0.9-1.1); Prothrombin Time 44.2 Seconds (9.0-12.0)
[2020-03-17 07:56] LABS: BUN Creatinine Ratio 8.6 (10-20); Calcium 9.3 mg/dl (8.5-10.1); Creatinine Clr Calc Pharmacy 145.7 ml/min; Est GFR (African American) 90.9; Est GFR (Non-African American) 78.4; Potassium 3.8 mmol/L (3.5-5.1)
[2020-03-17] MEDS: SUCRALFATE 1 GM TAB PO SCH ×4 (08:17→20:56)
[2020-03-17] MEDS: INSULIN ASPART 100 UNITS/ML 3 ML PEN SC SCH ×4 (08:18→21:31)
[2020-03-17] MEDS: DULOXETINE HCL 60 MG CAP PO SCH (08:20)
[2020-03-17] MEDS: FLUTICASONE/VILANTEROL 200/25MCG 14 PUFFS/INHALER INH SCH (08:20)
[2020-03-17] MEDS: GABAPENTIN 300 MG CAP PO SCH ×3 (08:20→21:01)
[2020-03-17] MEDS: POTASSIUM CHLORIDE 20 MEQ TABCR PO SCH ×2 (08:21→21:00)
[2020-03-17] MEDS: UMECLIDINIUM BROMIDE 62.5MCG/BLISTER 7 PUFFS/INHALER INH SCH (08:21)
[2020-03-17] MEDS: ISOSORBIDE MONO EXTENDED REL 30 MG TABCR PO SCH (08:21)
[2020-03-17] MEDS: FUROSEMIDE 40 MG TAB PO SCH ×2 (08:21→21:00)
[2020-03-17] MEDS: TAMSULOSIN HCL 0.4 MG CAP PO SCH (08:23)
[2020-03-17] MEDS: FINASTERIDE 5 MG TAB PO SCH (08:24)
[2020-03-17] MEDS: CYCLOBENZAPRINE HCL 10 MG TAB PO SCH ×2 (08:25→21:42)
[2020-03-17] MEDS: POLYETHYLENE (MIRALAX) 17 GM PACK PO SCH ×2 (08:25→21:01)
[2020-03-17] MEDS: FOLIC ACID 1 MG TAB PO SCH (08:25)
[2020-03-17] MEDS: SPIRONOLACTONE 25 MG TAB PO SCH (08:26)
[2020-03-17] MEDS: ASPIRIN 81 MG ECTAB PO SCH (08:26)
[2020-03-17] MEDS: DOCUSATE SODIUM 100 MG CAP PO SCH ×2 (08:26→21:42)
[2020-03-17] MEDS: MAGNESIUM OXIDE 400 MG TAB PO SCH (08:26)
[2020-03-17] MEDS: METOPROLOL SUCC 50MG EXT REL TAB PO SCH ×2 (08:27→21:03)
[2020-03-17] MEDS: SENNA 8.6 MG TAB PO SCH ×2 (08:27→21:02)
[2020-03-17] MEDS: PANTOprazole 40 MG TAB PO SCH ×2 (08:27→21:02)
[2020-03-17] MEDS: LORazepam 0.5 MG TAB PO PRN ×2 (08:33→20:55)
[2020-03-17] MEDS ORDERED: HYDROmorphone INJ 1 MG/ML SYRINGE IV ONE (10:30)
--- NOTE | 2020-03-17 11:27 | CT Scan Report ---
ABDOMEN AND PELVIS CT WITHOUT CONTRAST CT DOSE: 2275.28 mGy.cm HISTORY: right-sided abd pain, r/o hematoma TECHNIQUE: Multiaxial CT images of the abdomen and pelvis were performed without contrast. A dose lo wering technique was utilized adhering to the principles of ALARA. COMPARISON STUDY: Abdomen and pelvis CT 02/17/2020. FINDINGS: Linear density at the lung bases favor subsegmental atelectasis or scarring. No pneumoperit oneum. No pneumatosis. No suspicious lytic are blastic osseous lesions. The left-sided the abdomen is partially obscured by the gantry artifact. Hepatic steatosis. The gallbladder is decompressed. The u nenhanced pancreas, spleen, and adrenal glands unremarkable. Stable 4 mm stone within the right kidne y. Normal left kidney. No ureteral stones. No hydronephrosis. The bladder is decompressed by Lloyd ca theter. Gas within the bladder lumen is likely due to the prior catheterization. No pelvic free fluid . Suboptimal evaluation for bowel pathology due to the lack of intravenous and oral contrast. However , there is no definite bowel wall thickening or obstruction. The left side the colon is not well visu alized due to the gantry artifact. Prior cholecystectomy. Stable prominent periportal lymph nodes. No retroperitoneal lymphadenopathy. Normal caliber abdominal aorta. Mild bladder wall thickening. This could be due to underdistention. IMPRESSION: 1. No definite bowel wall thickening or obstruction. 2. Stable right-sided nephrolithiasis. No ureteral stones. No hydronephrosis. 3. Bladder wall thickening which could be due to decompression. Recommend correlation with urinalysis to exclude a cystitis. 4. Hepatic steatosis. ACT 112: Negative or not required by law. Electronically signed by: Vidal Keller M.D. 03/17/2020 11:25 AM
[2020-03-17] MEDS: cefTRIAXone SODIUM 2,000 MG in DEXTROSE 5% 50 ML IV SCH (17:30)
[2020-03-17] MEDS: DAPTOmycin 500 MG in SYRINGE 0 ML IV SCH (17:30)
--- NOTE | 2020-03-17 18:58 | Hospitalist Progress Note ---
Date of Service March 17, 2020 Assessment & Plan (1) Catheter-associated urinary tract infection: Chronic indwelling Lloyd catheter for urinary retention. UA showed leukocyte esterase, WBC's, RBC's. Reported fever. WBC elevated. Urine culture initially reported growing Staph sp; revised report = Strep sp. At risk for renal complications of vancomycin. Added IV daptomycin for gram + coverage pending final report. (2) Chest pain: Chronic intermittent chest pain. Troponin normal. Recurrent PE very unlikely with supratherapeutic INR. (3) Chronic diastolic CHF (congestive heart failure): Continue furosemide. (4) HTN (hypertension): Continue metoprolol. (5) History of pulmonary embolism: Titrate warfarin. (6) Elevated INR: INR 6.2 at time of admission. No apparent bleeding complications. No need to reverse warfarin. INR today = 4.5. Follow. (7) COPD (chronic obstructive pulmonary disease): Pulmonary status stable. (8) DM type 2 (diabetes mellitus, type 2): FBS = 128. (9) Morbid obesity: Wt 202 kg. BMI 60. Has received extensive nutritional counseling in the past. Ongoing counseling / support. Heart healthy / diabetic diet. (10) Therapeutic opioid induced constipation: Bowel regimen as ordered. (11) Chronic pain: Chronic pain syndrome as extensively documented in previous records. Review of PDMP reveals multiple prescriptions for analgesics by multiple providers at multiple pharmacies. He has been seen at multiple pain clinics over the years, but has not been able to maintain a long-term relationship with any. Patient complains of various pains, some chronic and some more recent. He is well aware of the potential risks of narcotic analgesics. Currently ordered oxycodone IR 5 mg q 4 hrs PRN. He is requesting that the dose be increased to 10 mg q 4 hrs PRN. 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 Will re-assess analgesic needs daily. He understands that our service will not be able to provide maintenance Rx for narcotics at time of discharge. (12) COVID-19 ruled out: Reports fever, cough, dysgeusia at home. COVID-19 PCR was negative in December. No sick contacts. SARS-CoV-2 today negative. (13) Abdominal pain: Patient complains of right-sided abdominal pain. He is worried about his gallbladder, but exam not consistent. However, is at risk for rectus sheath hematoma from elevated INR. Check CT abd/pelvis. Patient requested IV hydromorphone before procedure. (14) Neuropathy: History of neuropathy followed by Dr. Cisneros. Having ongoing severe discomfort despite therapy with duloxetine and gabapentin. He requests inpatient Neuro consult for follow-up. (15) DVT prophylaxis: On warfarin with supratherapeutic INR. (16) Discharge planning issues: Anticipated discharge to home. Internal Medicine follow-up with Dr. Askew. Admission and Anticipated Discharge Date Admission Date: March 15, 2020 Subjective Recheck for multiple problems. Patient seen in their room around 1010. Ongoing chest pain, unchanged. Persistent right-sided abdominal pain, worried about his gallbladder. Concerned that he can't feel his testicles. Concerned about itching around his anus. Neuropathic pain not well-controlled. Would like to be seen by Neurology for follow-up. Unhappy about fluid restriction. Review of Systems: Constitutional- as noted above. Cardiac- as noted above. Pulmonary- as noted above. GI- constipated; no nausea, vomiting, diarrhea, melena, hematochezia. - Lloyd cath. Otherwise, as noted above. Physical Exam Constitutional: + morbidly obese; no acute distress Respiratory: no respiratory distress Auscultation: + rhonchi (scattered) and + wheezes Cardiovascular: Rate/Rhythm: regular rate and regular rhythm Heart Sounds: no murmur (exam limited) Vessels: no JVD Extremities: + edema (1-2+ pretibal); no calf tenderness Gastrointestinal (Abdomen): Inspection/Auscultation: normal bowel sounds Percussion/Palpation: + abdomen tender (superficial right-sided abdominal tenderness) and abdomen soft no rash or external hemorrhoids Musculoskeletal: Extremities: no cyanosis Skin: no rashes, warm and dry Psychiatric: Orientation: alert and oriented x 3 Genitourinary: + bladder abnormality (Lloyd cath draining clear urine) scrotal edema testicular exam normal Results & Data Results & Data ([facility]) Vital Signs (Past 12 Hours) Vital Signs Temp Pulse Pulse Resp BP BP Pulse Ox 03/17/20 18:10 92 H 03/17/20 15:43 83 16 91 03/17/20 15:12 37.1 C 105 H 16 100/62 90 03/17/20 11:59 37.3 C 92 H 18 115/75 90 03/17/20 11:43 86 18 91 03/17/20 09:13 78 16 97 03/17/20 08:14 36.6 C 83 20 103/68 94 Laboratory Results Laboratory Results - last 24 hr 03/16/20 03/17/20 03/17/20 20:42 06:24 06:24 WBC 15.03 H RBC 5.17 Hgb 11.7 L Hct 38.9 L MCV 75.2 L MCH 22.6 L MCHC 30.1 L RDW Std Deviation 53.7 H RDW Coeff of Megan 19.4 H Plt Count 318 MPV 10.0 Immature Gran % (Auto) 0.3 Neut % (Auto) 73.8 Lymph % (Auto) 16.0 [place] % (Auto) 5.9 Eos % (Auto) 3.8 Baso % (Auto) 0.2 Neut # (Auto) 11.09 H Lymph # (Auto) 2.40 [place] # (Auto) 0.89 H Eos # (Auto) 0.57 H Baso # (Auto) 0.03 Immature Gran # (Auto) 0.05 H PT 44.2 H INR 4.5 H Sodium Potassium Chloride Carbon Dioxide Anion Gap BUN Creatinine Est Cr Clr Drug Dosing Est GFR ( Amer) Est GFR (Non-Af Amer) BUN/Creatinine Ratio Glucose POC Glucose 125 H Calcium 03/17/20 03/17/20 03/17/20 06:24 07:32 11:32 WBC RBC Hgb Hct MCV MCH MCHC RDW Std Deviation RDW Coeff of Megan Plt Count MPV Immature Gran % (Auto) Neut % (Auto) Lymph % (Auto) [place] % (Auto) Eos % (Auto) Baso % (Auto) Neut # (Auto) Lymph # (Auto) [place] # (Auto) Eos # (Auto) Baso # (Auto) Immature Gran # (Auto) PT INR Sodium 138 Potassium 3.8 Chloride 104 Carbon Dioxide 29 Anion Gap 6.0 BUN 10 Creatinine 1.10 Est Cr Clr Drug Dosing 145.7 Est GFR ( Amer) 90.9 Est GFR (Non-Af Amer) 78.4 BUN/Creatinine Ratio 8.6 L Glucose 114 H POC Glucose 128 H 110 H Calcium 9.3 03/17/20 16:45 WBC RBC Hgb Hct MCV MCH MCHC RDW Std Deviation RDW Coeff of Megan Plt Count MPV Immature Gran % (Auto) Neut % (Auto) Lymph % (Auto) [place] % (Auto) Eos % (Auto) Baso % (Auto) Neut # (Auto) Lymph # (Auto) [place] # (Auto) Eos # (Auto) Baso # (Auto) Immature Gran # (Auto) PT INR Sodium Potassium Chloride Carbon Dioxide Anion Gap BUN Creatinine Est Cr Clr Drug Dosing Est GFR ( Amer) Est GFR (Non-Af Amer) BUN/Creatinine Ratio Glucose POC Glucose 131 H Calcium (1) Chest pain Chest pain type: unspecified Qualified Code(s): R07.9 - Chest pain, unspecified (2) HTN (hypertension) Hypertension type: essential hypertension Qualified Code(s): I10 - Essential (primary) hypertension (3) COPD (chronic obstructive pulmonary disease) COPD type: unspecified COPD Qualified Code(s): J44.9 - Chronic obstructive pulmonary disease, unspecified
[2020-03-17] MEDS: AMPICILLIN 2,000 MG in SODIUM CHLOR 0.9% AD-VAN 100 ML IV SCH ×2 (19:41→23:18)
[2020-03-17] MEDS: AMITRIPTYLINE HCL 50 MG TAB PO SCH (20:58)
[2020-03-18] MEDS: OXYCODONE HCL IR 5 MG TAB (IMMEDIATE RELEASE) PO PRN ×10 (03:39→21:43)
[2020-03-18] MEDS: AMPICILLIN 2,000 MG in SODIUM CHLOR 0.9% AD-VAN 100 ML IV SCH ×4 (06:12→23:44)
[2020-03-18 06:56] LABS: Basophils # (auto) 0.02 K/uL (0-0.2); Basophils % (auto) 0.2 %; Eosinophils # (auto) 0.65 K/uL (0-0.5); Eosinophils % (auto) 5.3 %; Hematocrit (blood only) 37.7 % (42-52); Hemoglobin 11.7 g/dL (14.0-18.0); Immature Granulocytes # (auto) 0.06 K/uL (0.00-0.02); Immature Granulocytes % (auto) 0.5 %; Lymphocytes # (auto) 2.26 K/uL (1.2-3.4); Lymphocytes % (auto) 18.3 %; Mean Corpuscular Hemoglobin 22.9 pg (25-34); Mean Corpuscular Volume 73.6 fL (80-100); Mean Platelet Volume 9.9 fL (7.4-10.4); Monocytes % (auto) 6.5 %; Neutrophils # (auto) 8.57 K/uL (1.4-6.5); Neutrophils % (auto) 69.2 %; Platelet Count 312 K/uL (130-400); RDW Standard Deviation 51.4 fL (36.4-46.3); Red Blood Count 5.12 M/uL (4.7-6.1); White Blood Count 12.36 K/uL (4.8-10.8)
[2020-03-18] MEDS: IPRATROPIUM BROMIDE HFA INHALER INH SCH ×4 (07:04→19:38)
[2020-03-18] MEDS: ALBUTEROL HFA 8 GM INHALER INH SCH ×4 (07:04→19:41)
[2020-03-18 07:08] LABS: Prothrombin Time 30.1 Seconds (9.0-12.0)
[2020-03-18 07:35] LABS: Calcium 8.9 mg/dl (8.5-10.1); Creatinine Clr Calc Pharmacy 149.9 ml/min; Est GFR (Non-African American) 81.1; Potassium 3.9 mmol/L (3.5-5.1)
[2020-03-18] MEDS: POTASSIUM CHLORIDE 20 MEQ TABCR PO SCH ×2 (07:57→20:35)
[2020-03-18] MEDS: MAGNESIUM OXIDE 400 MG TAB PO SCH (07:57)
[2020-03-18] MEDS: SPIRONOLACTONE 25 MG TAB PO SCH (07:57)
[2020-03-18] MEDS: ISOSORBIDE MONO EXTENDED REL 30 MG TABCR PO SCH (07:57)
[2020-03-18] MEDS: ASPIRIN 81 MG ECTAB PO SCH (07:58)
[2020-03-18] MEDS: FINASTERIDE 5 MG TAB PO SCH (07:58)
[2020-03-18] MEDS: FOLIC ACID 1 MG TAB PO SCH (07:58)
[2020-03-18] MEDS: DULOXETINE HCL 60 MG CAP PO SCH (07:58)
[2020-03-18] MEDS: TAMSULOSIN HCL 0.4 MG CAP PO SCH (07:58)
[2020-03-18] MEDS: PANTOprazole 40 MG TAB PO SCH ×2 (07:58→20:36)
[2020-03-18] MEDS: FUROSEMIDE 40 MG TAB PO SCH ×2 (07:59→20:35)
[2020-03-18] MEDS: SENNA 8.6 MG TAB PO SCH ×2 (07:59→20:35)
[2020-03-18] MEDS: POLYETHYLENE (MIRALAX) 17 GM PACK PO SCH ×2 (07:59→20:43)
[2020-03-18] MEDS: GABAPENTIN 300 MG CAP PO SCH ×3 (07:59→20:36)
[2020-03-18] MEDS: UMECLIDINIUM BROMIDE 62.5MCG/BLISTER 7 PUFFS/INHALER INH SCH (08:00)
[2020-03-18] MEDS: SUCRALFATE 1 GM TAB PO SCH ×4 (08:00→20:36)
[2020-03-18] MEDS: METOPROLOL SUCC 50MG EXT REL TAB PO SCH ×2 (08:00→20:36)
[2020-03-18] MEDS: FLUTICASONE/VILANTEROL 200/25MCG 14 PUFFS/INHALER INH SCH (08:02)
[2020-03-18] MEDS: INSULIN ASPART 100 UNITS/ML 3 ML PEN SC SCH ×4 (08:03→21:14)
[2020-03-18] MEDS: BENZONATATE 100 MG CAPSULE PO PRN ×2 (08:22→16:19)
[2020-03-18] MEDS: DOCUSATE SODIUM 100 MG CAP PO SCH ×2 (08:22→20:43)
[2020-03-18] MEDS: CYCLOBENZAPRINE HCL 10 MG TAB PO SCH ×2 (08:22→20:43)
[2020-03-18] MEDS: MAGNESIUM HYDROXIDE SUSP 30 ML UDC PO PRN (12:43)
[2020-03-18] MEDS: LORazepam 0.5 MG TAB PO PRN ×2 (16:19→20:44)
[2020-03-18] MEDS: AMITRIPTYLINE HCL 50 MG TAB PO SCH (20:36)
--- NOTE | 2020-03-18 20:41 | Hospitalist Progress Note ---
Date of Service March 18, 2020 Assessment & Plan (1) Catheter-associated urinary tract infection: Chronic indwelling Lloyd catheter for urinary retention. UA showed leukocyte esterase, WBC's, RBC's. Reported fever. WBC elevated. Initially received ceftriaxone and daptomycin. Urine culture initially reported growing Staph sp; revised report = Strep sp. Final report: Enterococcus faecalis, sensitive to ampicillin. Antibiotic therapy changed to IV ampicillin. Afebrile. WBC 16,100 --> 12,360. (2) Chest pain: Chronic intermittent chest pain. Troponin normal. Recurrent PE very unlikely with supratherapeutic INR. (3) Chronic diastolic CHF (congestive heart failure): Patient feels that 2000 ml fluid restriction too strict. Agrees to 3000 ml restriction. Continue furosemide. (4) HTN (hypertension): Continue metoprolol. (5) History of pulmonary embolism: Titrate warfarin. (6) Elevated INR: INR 6.2 at time of admission. No apparent bleeding complications. No need to reverse warfarin. INR today = 3.0. Follow. (7) COPD (chronic obstructive pulmonary disease): Pulmonary status stable. (8) DM type 2 (diabetes mellitus, type 2): FBS = 140. (9) Morbid obesity: Wt 202 kg. BMI 60. Has received extensive nutritional counseling in the past. Ongoing counseling / support. Heart healthy / diabetic diet. (10) Therapeutic opioid induced constipation: Bowel regimen as ordered. (11) Chronic pain: Chronic pain syndrome as extensively documented in previous records. Review of PDMP reveals multiple prescriptions for analgesics by multiple providers at multiple pharmacies. He has been seen at multiple pain clinics over the years, but has not been able to maintain a long-term relationship with any. Patient complains of various pains, some chronic and some more recent. He is well aware of the potential risks of narcotic analgesics. Initially ordered oxycodone IR 5 mg q 4 hrs PRN. He requested that the dose be increased to 10 mg q 4 hrs PRN. 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 Will re-assess analgesic needs daily. He understands that our service will not be able to provide maintenance Rx for narcotics at time of discharge. (12) COVID-19 ruled out: Reports fever, cough, dysgeusia at home. COVID-19 PCR was negative in December. No sick contacts. SARS-CoV-2 today negative. (13) Abdominal pain: Patient complains of right-sided abdominal pain. He is worried about his gallbladder, but exam not consistent. However, is at risk for rectus sheath hematoma from elevated INR. CT abd/pelvis negative for acute processes. (14) Neuropathy: History of neuropathy followed by Dr. Cisneros. Having ongoing severe discomfort despite therapy with duloxetine and gabapentin. He requests inpatient Neuro consult for follow-up. (15) DVT prophylaxis: On warfarin with supratherapeutic INR. (16) Discharge planning issues: Anticipated discharge to home. Internal Medicine follow-up with Dr. Askew. Admission and Anticipated Discharge Date Admission Date: March 15, 2020 Subjective Recheck for multiple problems. Patient seen in their room around 1950. Feels lousy, like he was run over by a truck. Hurts all over. Ongoing chest pain. Ongoing abdominal pain. Ongoing neuropathic pain lower extremities. Feels that 2000 ml fluid restriction too strict. Review of Systems: Constitutional- as noted above. Cardiac- as noted above. Pulmonary- as noted above. GI- constipated; no nausea, vomiting, diarrhea, melena, hematochezia. - Lloyd cath. Otherwise, as noted above. Physical Exam Constitutional: + morbidly obese; no acute distress Respiratory: no respiratory distress Auscultation: + rhonchi (scattered) and + wheezes Cardiovascular: Rate/Rhythm: regular rate and regular rhythm Heart Sounds: no murmur (exam limited) Vessels: no JVD Extremities: + edema (1-2+ pretibal); no calf tenderness Gastrointestinal (Abdomen): normal bowel sounds, soft, nontender, no hepatosplenomegaly Inspection/Auscultation: normal bowel sounds Percussion/Palpation: + abdomen tender (superficial right-sided abdominal tenderness) and abdomen soft Musculoskeletal: Extremities: no cyanosis Skin: no rashes, warm and dry Psychiatric: Orientation: alert and oriented x 3 Genitourinary: + bladder abnormality (Lloyd cath draining clear urine) Results & Data Results & Data ([facility]) Vital Signs (Past 12 Hours) Vital Signs Temp Pulse Pulse Resp BP Pulse Ox 03/18/20 19:41 88 18 94 03/18/20 19:00 37.0 C 94 H 20 118/65 92 03/18/20 17:11 89 03/18/20 15:19 84 18 92 03/18/20 15:00 36.8 C 91 H 20 103/68 92 03/18/20 11:31 36.6 C 82 20 105/70 94 03/18/20 11:08 72 18 94 Laboratory Results 03/18/20 06:08 03/18/20 06:08 (1) Chest pain Chest pain type: unspecified Qualified Code(s): R07.9 - Chest pain, unspecified (2) HTN (hypertension) Hypertension type: essential hypertension Qualified Code(s): I10 - Essential (primary) hypertension (3) COPD (chronic obstructive pulmonary disease) COPD type: unspecified COPD Qualified Code(s): J44.9 - Chronic obstructive pulmonary disease, unspecified
[2020-03-19] MEDS: OXYCODONE HCL IR 5 MG TAB (IMMEDIATE RELEASE) PO PRN ×10 (01:10→22:02)
[2020-03-19] MEDS: AMPICILLIN 2,000 MG in SODIUM CHLOR 0.9% AD-VAN 100 ML IV SCH ×4 (05:16→23:22)
[2020-03-19] MEDS: IPRATROPIUM BROMIDE HFA INHALER INH SCH ×4 (06:58→19:35)
[2020-03-19] MEDS: ALBUTEROL HFA 8 GM INHALER INH SCH ×4 (06:59→19:36)
[2020-03-19 07:49] LABS: Hematocrit (blood only) 38.8 % (42-52); Hemoglobin 11.7 g/dL (14.0-18.0); Mean Corpuscular Hemoglobin 22.6 pg (25-34); Mean Corpuscular Hgb Conc 30.2 g/dL (32-36); Mean Platelet Volume 9.5 fL (7.4-10.4); Platelet Count 310 K/uL (130-400); RDW Coefficient of Variation 18.9 % (11.5-14.5); RDW Standard Deviation 52.1 fL (36.4-46.3); Red Blood Count 5.17 M/uL (4.7-6.1); White Blood Count 11.62 K/uL (4.8-10.8)
[2020-03-19] MEDS: SENNA 8.6 MG TAB PO SCH ×2 (07:53→20:41)
[2020-03-19] MEDS: GABAPENTIN 300 MG CAP PO SCH ×3 (07:53→20:41)
[2020-03-19] MEDS: FINASTERIDE 5 MG TAB PO SCH (07:53)
[2020-03-19] MEDS: MAGNESIUM OXIDE 400 MG TAB PO SCH (07:54)
[2020-03-19] MEDS: FUROSEMIDE 40 MG TAB PO SCH ×2 (07:54→20:42)
[2020-03-19] MEDS: SUCRALFATE 1 GM TAB PO SCH ×4 (07:54→20:39)
[2020-03-19] MEDS: DULOXETINE HCL 60 MG CAP PO SCH (07:54)
[2020-03-19] MEDS: SPIRONOLACTONE 25 MG TAB PO SCH (07:54)
[2020-03-19] MEDS: ASPIRIN 81 MG ECTAB PO SCH (07:54)
[2020-03-19] MEDS: PANTOprazole 40 MG TAB PO SCH ×2 (07:54→20:42)
[2020-03-19] MEDS: ISOSORBIDE MONO EXTENDED REL 30 MG TABCR PO SCH (07:55)
[2020-03-19] MEDS: TAMSULOSIN HCL 0.4 MG CAP PO SCH (07:55)
[2020-03-19] MEDS: METOPROLOL SUCC 50MG EXT REL TAB PO SCH ×2 (07:55→20:39)
[2020-03-19] MEDS: POTASSIUM CHLORIDE 20 MEQ TABCR PO SCH ×2 (07:55→20:40)
[2020-03-19] MEDS: FLUTICASONE/VILANTEROL 200/25MCG 14 PUFFS/INHALER INH SCH (07:56)
[2020-03-19] MEDS: FOLIC ACID 1 MG TAB PO SCH (07:56)
[2020-03-19] MEDS: UMECLIDINIUM BROMIDE 62.5MCG/BLISTER 7 PUFFS/INHALER INH SCH (07:56)
[2020-03-19] MEDS: LORazepam 0.5 MG TAB PO PRN (08:03)
[2020-03-19] MEDS: DOCUSATE SODIUM 100 MG CAP PO SCH ×2 (08:04→20:47)
[2020-03-19] MEDS: CYCLOBENZAPRINE HCL 10 MG TAB PO SCH ×2 (08:04→20:47)
[2020-03-19] MEDS: BENZONATATE 100 MG CAPSULE PO PRN (08:04)
[2020-03-19] MEDS: POLYETHYLENE (MIRALAX) 17 GM PACK PO SCH ×2 (08:04→20:47)
[2020-03-19] MEDS: INSULIN ASPART 100 UNITS/ML 3 ML PEN SC SCH ×4 (08:07→20:39)
[2020-03-19 08:09] LABS: INR 2.2 (0.9-1.1); Prothrombin Time 22.5 Seconds (9.0-12.0)
[2020-03-19 08:23] LABS: BUN Creatinine Ratio 12.7 (10-20); Calcium 9.4 mg/dl (8.5-10.1); Creatinine Clr Calc Pharmacy 164.4 ml/min; Est GFR (African American) 104.5; Est GFR (Non-African American) 90.2; Potassium 3.9 mmol/L (3.5-5.1)
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
[2020-03-19 11:53] LABS: Lyme Ab IgG w/WB Rflx Negative (Negative); Lyme Ab IgM w/WB Rflx Negative (Negative)
[2020-03-19] MEDS: WARFARIN SOD 5 MG TAB PO SCH (16:15)
--- NOTE | 2020-03-19 20:38 | Hospitalist Progress Note ---
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 UA showed leukocyte esterase, WBC's, RBC's. Reported fever. WBC elevated. Initially received ceftriaxone and daptomycin. Urine culture initially reported growing Staph sp; revised report = Strep sp. Final report: Enterococcus faecalis, sensitive to ampicillin. Antibiotic therapy changed to IV ampicillin. Afebrile. WBC 16,100 --> 11,620. Transition to oral therapy once WBC normalizes. (2) Chest pain: Chronic intermittent chest pain. Troponin normal. Recurrent PE very unlikely with supratherapeutic INR. (3) Chronic diastolic CHF (congestive heart failure): Patient feels that 2000 ml fluid restriction too strict; agrees to 3000 ml restriction. Continue furosemide. (4) HTN (hypertension): Continue metoprolol. (5) History of pulmonary embolism: Titrate warfarin. (6) Elevated INR: History of DVT and PE. Not candidate for DOAC because of BMI. It has been challenging to maintain INR in therapeutic range. History of SDH several months ago. INR 6.2 at time of admission. No apparent bleeding complications and no need to reverse warfarin. INR today = 2.2. Resume warfarin 5 mg daily. Follow and titrate therapy. (7) COPD (chronic obstructive pulmonary disease): Pulmonary status stable. (8) DM type 2 (diabetes mellitus, type 2): FBS = 130. (9) Morbid obesity: Wt 202 kg. BMI 60. Has received extensive nutritional counseling in the past. Ongoing counseling / support. Heart healthy / diabetic diet. (10) Therapeutic opioid induced constipation: Bowel regimen as ordered. (11) Chronic pain: Chronic pain syndrome as extensively documented in previous records. Review of PDMP reveals multiple prescriptions for analgesics by multiple providers at multiple pharmacies. He has been seen at multiple pain clinics over the years, but has not been able to maintain a long-term relationship with any. Patient complains of various pains, some chronic and some more recent. He is well aware of the potential risks of narcotic analgesics. Initially ordered oxycodone IR 5 mg q 4 hrs PRN. He requested that the dose be increased to 10 mg q 4 hrs PRN. Concerns about narcotic use in short or longterm again discussed, but patient requests increased dose. Will re-assess analgesic needs daily. Suggested changing oxycodone from q4 to q6 intervals; pt would like to wait until tomorrow. He understands that our service will not be able to provide maintenance Rx for narcotics at time of discharge. (12) COVID-19 ruled out: Reports fever, cough, dysgeusia at home. COVID-19 PCR was negative in December. No sick contacts. SARS-CoV-2 today negative. (13) Abdominal pain: Patient complains of right-sided abdominal pain. He is worried about his gallbladder, but exam not consistent. However, is at risk for rectus sheath hematoma from elevated INR. CT abd/pelvis negative for acute processes. (14) Neuropathy: History of neuropathy followed by Dr. Cisneros. Having ongoing severe discomfort despite therapy with duloxetine and gabapentin. Neurology consulted. (15) DVT prophylaxis: Continue warfarin. (16) Discharge planning issues: Anticipated discharge to home. Internal Medicine follow-up with Dr. Askew. Admission and Anticipated Discharge Date Admission Date: March 15, 2020 Subjective Recheck for multiple problems. Patient seen in their room around 1650. Ongoing chest pain. Ongoing abdominal pain. Ongoing neuropathic pain lower extremities. Congested cough. Review of Systems: Constitutional- as noted above. Cardiac- as noted above. Pulmonary- as noted above. GI- constipated; no nausea, vomiting, diarrhea, melena, hematochezia. - Lloyd cath. Otherwise, as noted above. Physical Exam Constitutional: + morbidly obese; no acute distress Respiratory: no respiratory distress Auscultation: + rhonchi (scattered) and + wheezes Cardiovascular: Rate/Rhythm: regular rate and regular rhythm Heart Sounds: no murmur (exam limited) Vessels: no JVD Extremities: + edema (1-2+ pretibal); no calf tenderness Gastrointestinal (Abdomen): Inspection/Auscultation: normal bowel sounds Percussion/Palpation: + abdomen tender (superficial right-sided abdominal tenderness; no erythema, fluctuance, mass) and abdomen soft Musculoskeletal: Extremities: no cyanosis Skin: no rashes, warm and dry Psychiatric: Orientation: alert and oriented x 3 Genitourinary: + bladder abnormality (Lloyd cath draining clear urine) Results & Data Results & [facility] ([facility]) Vital Signs (Past 12 Hours) Vital Signs Temp Pulse Resp BP Pulse Ox 03/19/20 19:36 75 16 98 03/19/20 19:11 36.7 C 71 19 104/61 94 03/19/20 15:00 36.6 C 72 20 134/75 92 Laboratory Results Laboratory Results - last 24 hr 03/19/20 03/19/20 03/19/20 07:31 07:31 07:31 WBC 11.62 H RBC 5.17 Hgb 11.7 L Hct 38.8 L MCV 75.0 L MCH 22.6 L MCHC 30.2 L RDW Std Deviation 52.1 H RDW Coeff of Megan 18.9 H Plt Count 310 MPV 9.5 PT 22.5 H INR 2.2 H Sodium 138 Potassium 3.9 Chloride 102 Carbon Dioxide 32 Anion Gap 5.0 BUN 12 Creatinine 0.98 Est Cr Clr Drug Dosing 164.4 Est GFR ( Amer) 104.5 Est GFR (Non-Af Amer) 90.2 BUN/Creatinine Ratio 12.7 Glucose 120 H POC Glucose Calcium 9.4 Vitamin B12 NATE Screen SS-A/Ro Antibody SS-B/La Antibody Sm ([place]) Antibody FORMING MACHINE [employer]PERATOR Antibody Scl-70 Scleroderma Ab Anti-ds DNA (Crith[place]) Chromatin Antibody Anti-Centromere Ab Thyroid Antimicrosomal Anti-Cardiolipin IgG Ab Anti-Cardiolipin IgA Ab Anti-Cardiolipin IgM Ab Complement C3 Complement C4 Lyme Disease IgG Ab Lyme Disease IgM Ab 03/19/20 03/19/20 03/19/20 07:33 09:44 09:44 WBC RBC Hgb Hct MCV MCH MCHC RDW Std Deviation RDW Coeff of Megan Plt Count MPV PT INR Sodium Potassium Chloride Carbon Dioxide Anion Gap BUN Creatinine Est Cr Clr Drug Dosing Est GFR ( Amer) Est GFR (Non-Af Amer) BUN/Creatinine Ratio Glucose POC Glucose 130 H Calcium Vitamin B12 425 NATE Screen SS-A/Ro Antibody SS-B/La Antibody Sm ([place]) Antibody FORMING MACHINE OPERATOR Antibody Scl-70 Scleroderma Ab Anti-ds DNA (Crithidia) Chromatin Antibody Anti-Centromere Ab Thyroid Antimicrosomal Anti-Cardiolipin IgG Ab Anti-Cardiolipin IgA Ab Anti-Cardiolipin IgM Ab Complement C3 Complement C4 Lyme Disease IgG Ab Negative Lyme Disease IgM Ab Negative 03/19/20 03/19/20 03/19/20 09:44 11:27 16:43 WBC RBC Hgb Hct MCV MCH MCHC RDW Std Deviation RDW Coeff of Megan Plt Count MPV PT INR Sodium Potassium Chloride Carbon Dioxide Anion Gap BUN Creatinine Est Cr Clr Drug Dosing Est GFR ( Amer) Est GFR (Non-Af Amer) BUN/Creatinine Ratio Glucose POC Glucose 136 H 140 H Calcium Vitamin B12 NATE Screen Pending SS-A/Ro Antibody Pending SS-B/La Antibody Pending Sm ([place]) Antibody Pending FORMING MACHINE OPERATOR Antibody Pending Scl-70 Scleroderma Ab Pending Anti-ds DNA (Crithidia) Pending Chromatin Antibody Pending Anti-Centromere Ab Pending Thyroid Antimicrosomal Pending Anti-Cardiolipin IgG Ab Pending Anti-Cardiolipin IgA Ab Pending Anti-Cardiolipin IgM Ab Pending Complement C3 Pending Complement C4 Pending Lyme Disease IgG Ab Lyme Disease IgM Ab 03/19/20 20:32 WBC RBC Hgb Hct MCV MCH MCHC RDW Std Deviation RDW Coeff of Megan Plt Count MPV PT INR Sodium Potassium Chloride Carbon Dioxide Anion Gap BUN Creatinine Est Cr Clr Drug Dosing Est GFR ( Amer) Est GFR (Non-Af Amer) BUN/Creatinine Ratio Glucose POC Glucose 110 H Calcium Vitamin B12 NATE Screen SS-A/Ro Antibody SS-B/La Antibody Sm ([place]) Antibody FORMING MACHINE OPERATOR Antibody Scl-70 Scleroderma Ab Anti-ds DNA (Crithidia) Chromatin Antibody Anti-Centromere Ab Thyroid Antimicrosomal Anti-Cardiolipin IgG Ab Anti-Cardiolipin IgA Ab Anti-Cardiolipin IgM Ab Complement C3 Complement C4 Lyme Disease IgG Ab Lyme Disease IgM Ab (1) Chest pain Chest pain type: unspecified Qualified Code(s): R07.9 - Chest pain, unspecified (2) HTN (hypertension) Hypertension type: essential hypertension Qualified Code(s): I10 - Essential (primary) hypertension (3) COPD (chronic obstructive pulmonary disease) COPD type: unspecified COPD Qualified Code(s): J44.9 - Chronic obstructive pulmonary disease, unspecified
[2020-03-19] MEDS: AMITRIPTYLINE HCL 50 MG TAB PO SCH (20:41)
[2020-03-20] MEDS: OXYCODONE HCL IR 5 MG TAB (IMMEDIATE RELEASE) PO PRN ×5 (01:58→23:36)
[2020-03-20] MEDS: SUCRALFATE 1 GM TAB PO SCH ×4 (06:25→21:35)
[2020-03-20] MEDS: AMPICILLIN 2,000 MG in SODIUM CHLOR 0.9% AD-VAN 100 ML IV SCH ×4 (06:26→23:37)
[2020-03-20] MEDS: MAGNESIUM HYDROXIDE SUSP 30 ML UDC PO PRN (06:27)
[2020-03-20 06:52] LABS: INR 1.9 (0.9-1.1); Prothrombin Time 19.7 Seconds (9.0-12.0)
[2020-03-20] MEDS: IPRATROPIUM BROMIDE HFA INHALER INH SCH ×4 (06:59→20:00)
[2020-03-20] MEDS: ALBUTEROL HFA 8 GM INHALER INH SCH ×4 (06:59→20:00)
[2020-03-20 07:17] LABS: BUN Creatinine Ratio 12.2 (10-20); Calcium 9.1 mg/dl (8.5-10.1); Creatinine Clr Calc Pharmacy 125.8 ml/min; Est GFR (African American) 75.7; Est GFR (Non-African American) 65.3; Potassium 4.2 mmol/L (3.5-5.1)
[2020-03-20] MEDS: LORazepam 0.5 MG TAB PO PRN ×2 (09:10→21:54)
[2020-03-20] MEDS: ASPIRIN 81 MG ECTAB PO SCH (09:11)
[2020-03-20] MEDS: POTASSIUM CHLORIDE 20 MEQ TABCR PO SCH ×2 (09:11→21:35)
[2020-03-20] MEDS: DULOXETINE HCL 30 MG CAP PO SCH (09:11)
[2020-03-20] MEDS: ATORVASTATIN 40 MG TAB PO SCH (09:12)
[2020-03-20] MEDS: FINASTERIDE 5 MG TAB PO SCH (09:13)
[2020-03-20] MEDS: FOLIC ACID 1 MG TAB PO SCH (09:13)
[2020-03-20] MEDS: SPIRONOLACTONE 25 MG TAB PO SCH (09:13)
[2020-03-20] MEDS: PANTOprazole 40 MG TAB PO SCH ×2 (09:14→21:35)
[2020-03-20] MEDS: FUROSEMIDE 40 MG TAB PO SCH ×2 (09:14→21:35)
[2020-03-20] MEDS: TAMSULOSIN HCL 0.4 MG CAP PO SCH (09:14)
[2020-03-20] MEDS: MAGNESIUM OXIDE 400 MG TAB PO SCH (09:14)
[2020-03-20] MEDS: ISOSORBIDE MONO EXTENDED REL 30 MG TABCR PO SCH (09:14)
[2020-03-20] MEDS: GABAPENTIN 300 MG CAP PO SCH ×2 (09:14→13:23)
[2020-03-20] MEDS: SENNA 8.6 MG TAB PO SCH ×2 (09:15→21:30)
[2020-03-20] MEDS: FLUTICASONE/VILANTEROL 200/25MCG 14 PUFFS/INHALER INH SCH (09:15)
[2020-03-20] MEDS: METOPROLOL SUCC 50MG EXT REL TAB PO SCH ×2 (09:15→21:44)
[2020-03-20] MEDS: POLYETHYLENE (MIRALAX) 17 GM PACK PO SCH ×2 (09:15→21:29)
[2020-03-20] MEDS: UMECLIDINIUM BROMIDE 62.5MCG/BLISTER 7 PUFFS/INHALER INH SCH (09:16)
[2020-03-20] MEDS: DOCUSATE SODIUM 100 MG CAP PO SCH ×2 (09:16→21:29)
[2020-03-20] MEDS: CYCLOBENZAPRINE HCL 10 MG TAB PO SCH ×2 (09:18→21:46)
[2020-03-20] MEDS: INSULIN ASPART 100 UNITS/ML 3 ML PEN SC SCH ×4 (09:19→21:47)
[2020-03-20] MEDS: WARFARIN SOD 5 MG TAB PO SCH (17:42)
--- NOTE | 2020-03-20 20:19 | Hospitalist Progress Note ---
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 Present on admission with bladder discomfort and reported fever at home WBC elevated on admission UA showed leukocyte esterase, WBC's, RBC's. Urine culture grew enterococcus faecalis, sensitive to ampicillin. Initially received ceftriaxone and daptomycin. Antibiotic therapy changed to IV ampicillin. WBC trending down Will complete course of abx tomorrow Clinicaaly stable (2) Chest pain: Chronic intermittent chest pain. Troponin normal. Recurrent PE very unlikely with supratherapeutic INR. (3) Chronic diastolic CHF (congestive heart failure): Patient feels that 2000 ml fluid restriction too strict; agrees to 3000 ml restriction. Continue furosemide. Will get CXR in am (4) HTN (hypertension): BP stable Continue metoprolol. (5) History of pulmonary embolism: INR 1.9 today Continue coumadin 5 mg (6) Elevated INR: History of DVT and PE. Not candidate for DOAC because of BMI. It has been challenging to maintain INR in therapeutic range. History of SDH several months ago. INR 6.2 at time of admission. No apparent bleeding complications and no need to reverse warfarin. INR today = 1.9 . Continue warfarin 5 mg daily. Continue monitor INR (7) COPD (chronic obstructive pulmonary disease): Pulmonary status stable. (8) DM type 2 (diabetes mellitus, type 2): Continue insulin sliding scale Continue monitor BS (9) Morbid obesity: Wt 202 kg. BMI 60. Counseling on diet and weight loss (10) Therapeutic opioid induced constipation: Continue stools softener for Miralax and senokot (11) Chronic pain: (12) Neuropathy: Chronic pain syndrome as extensively documented in previous records. Review of PDMP reveals multiple prescriptions for analgesics by multiple providers at multiple pharmacies. Seen by pain clinics over the years, but has not been able to maintain a long- term relationship with any. Discussed with pt about the potential risks of narcotic analgesics. Initially ordered oxycodone IR 5 mg q 4 hrs PRN. Oxycodone changed to q6h PRN Neuro on board and recommended to increased gabapentin to 800mg q8h and Duloxetine to 90mg daily Pt is asking for narcotic script on discharge, even after mentioning to him that we will not give any script for narcotic on discharge (13) COVID-19 ruled out: Reports fever, cough, dysgeusia at home. COVID-19 PCR was negative in December. No sick contacts. SARS-CoV-2 negative during hospital course (14) Abdominal pain: Patient complains of right-sided abdominal pain. He is worried about his gallbladder, but exam not consistent. However, is at risk for rectus sheath hematoma from elevated INR. CT abd/pelvis negative for acute processes. (15) DVT prophylaxis: Continue warfarin. (16) Discharge planning issues: Anticipated discharge to home. Internal Medicine follow-up with Dr. Askew. Admission and Anticipated Discharge Date Admission Date: March 15, 2020 Subjective Pt was seen and examined Pt said he continue to have pain all over his body He kept going back and forth that he will need a script with a few tablets of narcotic on discharge He said that he usually got a script to last until seeing his PCP He said that he is in so much pain that he cannot even move around He said that he does have a sore throat No fever noted on his chart Physical Exam Physical Exam: General- No acute distress Head- atraumatic Eyes- PERRL, EOMI, ENT- oropharynx clear Neck- supple, no JVD Lungs- + rhonchi Heart- regular rhythm; no murmur Abdomen- normal bowel sounds, soft, nontender Extremities- no calf tenderness, +edema Neuro- alert, oriented x 3; PERRL, EOMI; no facial palsy; no dysarthria Skin- warm & dry Results & Data Results & Data ([facility]) Vital Signs (Past 12 Hours) Vital Signs Temp Pulse Resp BP Pulse Ox 03/20/20 16:50 36.6 C 85 18 116/62 96 03/20/20 14:56 87 18 92 03/20/20 10:46 68 18 98 (1) COPD (chronic obstructive pulmonary disease) COPD type: unspecified COPD Qualified Code(s): J44.9 - Chronic obstructive pulmonary disease, unspecified (2) Chest pain Chest pain type: unspecified Qualified Code(s): R07.9 - Chest pain, unspecified (3) HTN (hypertension) Hypertension type: essential hypertension Qualified Code(s): I10 - Essential (primary) hypertension
[2020-03-20] MEDS: AMITRIPTYLINE HCL 50 MG TAB PO SCH (21:35)
[2020-03-20] MEDS: BENZONATATE 100 MG CAPSULE PO PRN (21:46)
[2020-03-20] MEDS: GABAPENTIN 400 MG CAP PO SCH (21:54)
[2020-03-21] MEDS: AMPICILLIN 2,000 MG in SODIUM CHLOR 0.9% AD-VAN 100 ML IV SCH ×4 (05:44→23:43)
[2020-03-21] MEDS: OXYCODONE HCL IR 5 MG TAB (IMMEDIATE RELEASE) PO PRN ×3 (05:44→17:50)
[2020-03-21 06:23] LABS: BUN Creatinine Ratio 14.1 (10-20); Calcium 9.2 mg/dl (8.5-10.1); Potassium 4.1 mmol/L (3.5-5.1)
[2020-03-21 06:27] LABS: INR 2.2 (0.9-1.1); Prothrombin Time 21.9 Seconds (9.0-12.0)
[2020-03-21] MEDS: ALBUTEROL HFA 8 GM INHALER INH SCH ×4 (07:02→19:54)
[2020-03-21] MEDS: IPRATROPIUM BROMIDE HFA INHALER INH SCH ×4 (07:02→19:54)
--- NOTE | 2020-03-21 08:39 | XRay Report ---
XR chest 1V portable CLINICAL HISTORY: CHF, cough dyspnea COMPARISON STUDY: 03/15/2020 FINDINGS: Moderate stable cardiomegaly. Unchanged parenchymal infiltrate left base mild prominence of the pulmonary vasculature. Pulmonary apices are clear. IMPRESSION: 1. Unchanged mild cardiomegaly. 2. Unchanged left basilar infiltrate possibly combined with a small left effusion. ACT 112: Negative or not required by law. The above report was generated using voice recognition software. It may contain grammatical, syntax or spelling errors. Electronically signed by: Owen Flowers M.D. 03/21/2020 8:38 AM
[2020-03-21] MEDS: FLUTICASONE/VILANTEROL 200/25MCG 14 PUFFS/INHALER INH SCH (08:52)
[2020-03-21] MEDS: GABAPENTIN 400 MG CAP PO SCH ×3 (08:53→20:34)
[2020-03-21] MEDS: PANTOprazole 40 MG TAB PO SCH ×2 (08:53→20:36)
[2020-03-21] MEDS: METOPROLOL SUCC 50MG EXT REL TAB PO SCH ×2 (08:53→20:38)
[2020-03-21] MEDS: MAGNESIUM OXIDE 400 MG TAB PO SCH (08:54)
[2020-03-21] MEDS: SUCRALFATE 1 GM TAB PO SCH ×4 (08:54→20:38)
[2020-03-21] MEDS: SPIRONOLACTONE 25 MG TAB PO SCH (08:54)
[2020-03-21] MEDS: FOLIC ACID 1 MG TAB PO SCH (08:54)
[2020-03-21] MEDS: DULOXETINE HCL 30 MG CAP PO SCH (08:54)
[2020-03-21] MEDS: POTASSIUM CHLORIDE 20 MEQ TABCR PO SCH ×2 (08:54→20:32)
[2020-03-21] MEDS: ATORVASTATIN 40 MG TAB PO SCH (08:55)
[2020-03-21] MEDS: ASPIRIN 81 MG ECTAB PO SCH (08:55)
[2020-03-21] MEDS: FUROSEMIDE 40 MG TAB PO SCH ×2 (08:55→20:33)
[2020-03-21] MEDS: FINASTERIDE 5 MG TAB PO SCH (08:55)
[2020-03-21] MEDS: TAMSULOSIN HCL 0.4 MG CAP PO SCH (08:55)
[2020-03-21] MEDS: UMECLIDINIUM BROMIDE 62.5MCG/BLISTER 7 PUFFS/INHALER INH SCH (08:56)
[2020-03-21] MEDS: DOCUSATE SODIUM 100 MG CAP PO SCH ×2 (08:57→20:32)
[2020-03-21] MEDS: SENNA 8.6 MG TAB PO SCH ×2 (08:58→20:36)
[2020-03-21] MEDS: LORazepam 0.5 MG TAB PO PRN ×2 (09:04→20:30)
[2020-03-21] MEDS: CYCLOBENZAPRINE HCL 10 MG TAB PO SCH ×2 (09:04→20:31)
[2020-03-21] MEDS: POLYETHYLENE (MIRALAX) 17 GM PACK PO SCH ×2 (09:05→20:31)
[2020-03-21] MEDS: INSULIN ASPART 100 UNITS/ML 3 ML PEN SC SCH ×4 (09:05→20:30)
[2020-03-21] MEDS: ISOSORBIDE MONO EXTENDED REL 30 MG TABCR PO SCH (11:49)
--- NOTE | 2020-03-21 14:23 | Electrocardiogram Report ---
Test Reason : Blood Pressure : / mmHG Vent. Rate : 079 BPM Atrial Rate : 079 BPM P-R Int : 170 ms QRS Dur : 110 ms QT Int : 386 ms P-R-T Axes : 092 043 060 degrees QTc Int : 442 ms Normal sinus rhythm Nonspecific T wave abnormality Anterior leads Abnormal ECG When compared with ECG of 15-MAR-2020 14:09, No significant change was found Confirmed by Da Browning ([id number]) on 03/21/2020 2:23:09 PM Referred By: REFERRED SELF Confirmed By:Da Browning
[2020-03-21] MEDS: WARFARIN SOD 5 MG TAB PO SCH (17:14)
[2020-03-21 18:34] LABS: Albumin 2.9 g/dL (3.8-4.8); Alpha 1 Globulin 0.4 g/dL (0.2-0.3); Alpha 2 Globulin 0.8 g/dL (0.5-0.9); Beta-1-Globulin 0.5 g/dL (0.4-0.6); Beta-2-Globulin 0.5 g/dL (0.2-0.5); Monoclonal Protein Band 1 DNR g/dL (NONE DETECTED); Monoclonal Protein Band 2 DNR g/dL (NONE DETECTED); Monoclonal Protein Band 3 DNR g/dL (NONE DETECTED); Total Protein 6.1 g/dL (6.1-8.1)
--- NOTE | 2020-03-21 19:00 | Hospitalist Progress Note ---
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 Present on admission with bladder discomfort and reported fever at home WBC elevated on admission UA showed leukocyte esterase, WBC's, RBC's. Urine culture grew enterococcus faecalis, sensitive to ampicillin. Initially received ceftriaxone and daptomycin. Antibiotic therapy changed to IV ampicillin. WBC trending down Will complete course of abx on 03/22 Clinically stable (2) Chest pain: Chronic intermittent chest pain. Repeat troponin today normal EKG repeat today showed no evidence of ischemic changes Recurrent PE very unlikely with supratherapeutic INR. (3) Chronic diastolic CHF (congestive heart failure): Patient feels that 2000 ml fluid restriction too strict Previous hospitalist teams changed fluid restriction to 3000 ml CXR showed unchanged mild cardiomegaly. Continue furosemide. Will monitor I/O and weight (4) HTN (hypertension): BP stable Continue metoprolol. (5) History of pulmonary embolism: INR 2.2 today Continue coumadin 5 mg (6) Elevated INR: History of DVT and PE. Not candidate for DOAC because of BMI. It has been challenging to maintain INR in therapeutic range. History of SDH several months ago. INR 6.2 at time of admission. No apparent bleeding complications and no need to reverse warfarin. INR today = 2.2 Continue warfarin 5 mg daily. Continue monitor INR (7) COPD (chronic obstructive pulmonary disease): Pulmonary status stable. (8) DM type 2 (diabetes mellitus, type 2): Continue insulin sliding scale Continue monitor BS (9) Morbid obesity: Wt 202 kg. BMI 60. Counseling on diet and weight loss (10) Therapeutic opioid induced constipation: Continue stools softener for Miralax and senokot (11) Chronic pain: Chronic pain syndrome as extensively documented in previous records. Review of PDMP reveals multiple prescriptions for analgesics by multiple providers at multiple pharmacies. Seen by pain clinics over the years, but has not been able to maintain a long- term relationship with any. Discussed with pt about the potential risks of narcotic analgesics. Initially ordered oxycodone IR 5 mg q 4 hrs PRN. Neuro on board and recommended to increased gabapentin to 800mg q8h and Oxycodone changed to 10mg q6h prn, will plan to change to 5mg q6h He understands that our service will not be able to provide maintenance Rx for narcotics at time of discharge. (12) Neuropathy: Chronic pain syndrome as extensively documented in previous records. Review of PDMP reveals multiple prescriptions for analgesics by multiple providers at multiple pharmacies. Seen by pain clinics over the years, but has not been able to maintain a long- term relationship with any. Discussed with pt about the potential risks of narcotic analgesics. Initially ordered oxycodone IR 5 mg q 4 hrs PRN. Oxycodone changed to q6h PRN Neuro on board and recommended to increased gabapentin to 800mg q8h and Duloxetine to 90mg daily Pt is asking for narcotic script on discharge, even after mentioning to him that we will not give any script for narcotic on discharge (13) COVID-19 ruled out: Reports fever, cough, dysgeusia at home. COVID-19 PCR was negative in December. No sick contacts. SARS-CoV-2 negative during hospital course He still believes that he has COVID 19 because he lost his taste bud and smell sensation Will repeat COVID-19 just to reassure him and his partner (14) Abdominal pain: Patient complains of right-sided abdominal pain. He is worried about his gallbladder, but exam not consistent. However, is at risk for rectus sheath hematoma from elevated INR. CT abd/pelvis negative for acute processes. (15) DVT prophylaxis: Continue warfarin. INR 2.2 today (16) Discharge planning issues: Anticipated discharge to home. Internal Medicine follow-up with Dr. Askew. Admission and Anticipated Discharge Date Admission Date: March 15, 2020 Subjective Pt was seen and examined Lying in bed with no distress Pt said that he continues to have pain He said that he lost his taste bud and has decrease smell sensation He thinks that he had COVID 19 I told him that he had 2 COVID 19 test done, 1 in December and 1 on admission I explained to him that he has no fever and his repeat CXR showed no infiltrate He said that he was having chest pain early today and stat troponin was negative and EKG showed no ischemic changes Physical Exam Physical Exam: General- No acute distress Head- atraumatic Eyes- PERRL, EOMI, ENT- oropharynx clear Neck- supple, no JVD Lungs- + rhonchi Heart- regular rhythm; no murmur Abdomen- normal bowel sounds, soft, nontender Extremities- no calf tenderness, +edema Neuro- alert, oriented x 3; PERRL, EOMI; no facial palsy; no dysarthria Skin- warm & dry Results & Data Results & Data ([facility]) Vital Signs (Past 12 Hours) Vital Signs Temp Pulse Resp BP Pulse Ox 03/21/20 15:43 36.5 C 75 16 115/75 97 03/21/20 13:19 36.8 C 81 18 103/67 95 03/21/20 07:34 36.5 C 68 20 115/72 98 03/21/20 07:02 73 18 96 (1) COPD (chronic obstructive pulmonary disease) COPD type: unspecified COPD Qualified Code(s): J44.9 - Chronic obstructive pulmonary disease, unspecified (2) Chest pain Chest pain type: unspecified Qualified Code(s): R07.9 - Chest pain, unspecified (3) HTN (hypertension) Hypertension type: essential hypertension Qualified Code(s): I10 - Essential (primary) hypertension
[2020-03-21] MEDS: AMITRIPTYLINE HCL 50 MG TAB PO SCH (20:32)
[2020-03-21] MEDS ORDERED: OXYCODONE HCL IR 5 MG TAB (IMMEDIATE RELEASE) PO STA (22:10)
--- NOTE | 2020-03-21 23:38 | Communication Note ---
Date of Service: March 21, 2020 Made aware by RN of patient complaints that he may have had an unwitnessed seizure. As per patient, he felt shaky while trying to search for his room light pull string. Thinks he may have passed out prior to hitting his head. Achy headache symptoms. No tongue biting as per patient. Patient asking for pain medication "other than what I'm getting" prior to CT imaging. AP Head trauma Possible seizure as per patient claims ? Possible malingering given patient's longstanding documented history of self- injurious/reckless behavior in order to gain admission/extend hospital stay to have access to narcotic medication CT head given aspirin/Coumadin Rx Hold aspirin and Coumadin until CT head results known. EEG, seizure precautions, Ativan as needed active seizures Fall precautions. I told patient I was not comfortable giving him extra narcotic medication other than what is currently prescribed by his morning provider. Will relay to AM provider.
[2020-03-21] MEDS ORDERED: LORazepam 1 MG/2 ML VIAL IV PRN (23:39)
[2020-03-22] MEDS ORDERED: KETOROLAC TROMETHAMINE 15 MG/ML VIAL IV STA (01:36)
[2020-03-22] MEDS: AMPICILLIN 2,000 MG in SODIUM CHLOR 0.9% AD-VAN 100 ML IV SCH ×3 (06:05→17:22)
[2020-03-22] MEDS: OXYCODONE HCL IR 5 MG TAB (IMMEDIATE RELEASE) PO PRN ×3 (06:06→20:57)
--- NOTE | 2020-03-22 06:38 | CT Scan Report ---
CT head/brain wo con CT DOSE: 687.98 mGy.cm HISTORY: Mental status change villalta TECHNIQUE: Multiaxial CT images of the head were performed without the use of intravenous contrast. A dose lowering technique was utilized adhering to the principles of ALARA. Comparison: None. Findings: The paranasal sinuses and mastoid air cells are clear. The calvarium and skull base are int act. The ventricles and sulci are within normal limits. There is no mass, hematoma, midline shift, or acute infarct. Impression: No acute intracranial abnormality. ACT 112: Negative or not required by law. The above report was generated using voice recognition software. It may contain grammatical, syntax or spelling errors. Electronically signed by: Owen Flowers M.D. 03/22/2020 6:36 AM
[2020-03-22] MEDS: IPRATROPIUM BROMIDE HFA INHALER INH SCH ×4 (07:41→22:03)
[2020-03-22] MEDS: ALBUTEROL HFA 8 GM INHALER INH SCH ×4 (07:42→22:03)
[2020-03-22] MEDS: PANTOprazole 40 MG TAB PO SCH ×2 (08:54→20:08)
[2020-03-22] MEDS: METOPROLOL SUCC 50MG EXT REL TAB PO SCH ×2 (08:54→20:08)
[2020-03-22] MEDS: GABAPENTIN 400 MG CAP PO SCH ×3 (08:54→20:08)
[2020-03-22] MEDS: SUCRALFATE 1 GM TAB PO SCH ×4 (08:55→20:08)
[2020-03-22] MEDS: FUROSEMIDE 40 MG TAB PO SCH ×2 (08:55→20:08)
[2020-03-22] MEDS: FLUTICASONE/VILANTEROL 200/25MCG 14 PUFFS/INHALER INH SCH (08:56)
[2020-03-22] MEDS: UMECLIDINIUM BROMIDE 62.5MCG/BLISTER 7 PUFFS/INHALER INH SCH (08:56)
[2020-03-22] MEDS: SPIRONOLACTONE 25 MG TAB PO SCH (08:56)
[2020-03-22] MEDS: FOLIC ACID 1 MG TAB PO SCH (08:57)
[2020-03-22] MEDS: ATORVASTATIN 40 MG TAB PO SCH (08:57)
[2020-03-22] MEDS: TAMSULOSIN HCL 0.4 MG CAP PO SCH (08:57)
[2020-03-22] MEDS: MAGNESIUM OXIDE 400 MG TAB PO SCH (08:57)
[2020-03-22] MEDS: DULOXETINE HCL 30 MG CAP PO SCH (08:58)
[2020-03-22] MEDS: ISOSORBIDE MONO EXTENDED REL 30 MG TABCR PO SCH (08:58)
[2020-03-22] MEDS: DOCUSATE SODIUM 100 MG CAP PO SCH ×2 (08:58→20:04)
[2020-03-22] MEDS: POTASSIUM CHLORIDE 20 MEQ TABCR PO SCH ×2 (08:58→20:08)
[2020-03-22] MEDS: POLYETHYLENE (MIRALAX) 17 GM PACK PO SCH ×2 (08:59→20:04)
[2020-03-22] MEDS: SENNA 8.6 MG TAB PO SCH ×2 (08:59→20:05)
[2020-03-22] MEDS: FINASTERIDE 5 MG TAB PO SCH (08:59)
[2020-03-22] MEDS: LORazepam 0.5 MG TAB PO PRN ×2 (09:01→20:13)
[2020-03-22] MEDS: CYCLOBENZAPRINE HCL 10 MG TAB PO SCH ×2 (09:01→20:08)
[2020-03-22] MEDS: INSULIN ASPART 100 UNITS/ML 3 ML PEN SC SCH ×4 (09:02→21:37)
[2020-03-22 09:14] LABS: Hematocrit (blood only) 37.8 % (42-52); Hemoglobin 11.7 g/dL (14.0-18.0); Mean Corpuscular Hemoglobin 23.4 pg (25-34); Mean Corpuscular Volume 75.6 fL (80-100); Mean Platelet Volume 9.5 fL (7.4-10.4); Platelet Count 325 K/uL (130-400); RDW Coefficient of Variation 18.9 % (11.5-14.5); RDW Standard Deviation 52.1 fL (36.4-46.3); White Blood Count 11.08 K/uL (4.8-10.8)
[2020-03-22 09:37] LABS: INR 4.4 (0.9-1.1); Prothrombin Time 42.9 Seconds (9.0-12.0)
[2020-03-22 09:42] LABS: BUN Creatinine Ratio 15.5 (10-20); Calcium 9.1 mg/dl (8.5-10.1); Creatinine Clr Calc Pharmacy 137.7 ml/min; Est GFR (African American) 84.3; Est GFR (Non-African American) 72.8; Potassium 4.1 mmol/L (3.5-5.1)
--- NOTE | 2020-03-22 13:11 | Electroencephalogram ---
EEG Procedure Note Date of Service March 22, 2020 Start / End Times Start Time: 7:45 AM End Time: 8:05 AM Referring Physician Waldemar Galarza MD History Seizure-like activity Home Medication List Home Medications Medication Instructions Recorded Confirmed Type fluticasone propionate 2 spray INTRANASAL DAILY PRN 06/01/18 03/15/20 History hydroxyzine HCl 25 mg PO QID PRN 06/01/18 03/15/20 History aspirin [Ecotrin Low Strength] 81 mg PO QAM 11/17/18 03/15/20 History nitroglycerin [Nitrostat] 0.4 mg SUBLINGUAL DIRECTED PRN 12/09/18 03/15/20 History nystatin 1 applic TOPICAL TID PRN 12/09/18 03/15/20 History polyethylene glycol 3350 [Miralax] 17 g PO QAM 12/09/18 03/15/20 History Spiriva with HandiHaler 1 puff INHALATION QAM 01/29/19 03/15/20 History finasteride 5 mg PO QAM 03/03/19 03/15/20 History tamsulosin [Flomax] 0.4 mg PO QAM 03/03/19 03/15/20 History cyclobenzaprine 10 mg PO BID 03/10/19 03/15/20 History Breo Ellipta 1 inh INHALATION QAM 08/01/19 03/15/20 History isosorbide mononitrate 30 mg PO QAM 08/01/19 03/15/20 History metoprolol succinate 50 mg PO BID 08/01/19 03/15/20 History spironolactone 25 mg PO QAM 08/01/19 03/15/20 History Lactinex 1 tab PO BID 08/11/19 03/15/20 History docusate sodium 100 mg PO BID 08/11/19 03/15/20 History ipratropium-albuterol 3 ml INHALATION QID PRN 08/11/19 03/15/20 History magnesium oxide 400 mg PO QAM 08/11/19 03/15/20 History glipizide 5 mg PO BID #60 tab 10/20/19 03/15/20 Rx Combivent Respimat 1 puff INHALATION QID 12/07/19 03/15/20 History atorvastatin 80 mg PO QAM 12/07/19 03/15/20 History folic acid 1 mg PO QAM 12/07/19 03/15/20 History furosemide [Lasix] 40 mg PO BID 12/07/19 03/15/20 History lorazepam 0.5 mg PO TID PRN 12/07/19 03/15/20 History sennosides [senna] 17.2 mg PO BID 12/07/19 03/15/20 History gabapentin 600 mg PO TID 30 Days #180 cap 02/03/20 03/15/20 Rx albuterol sulfate 2 puff INHALATION Q4 PRN 02/17/20 03/15/20 History amitriptyline 50 mg PO HS 02/17/20 03/15/20 History benzonatate 100 mg PO TID PRN 02/17/20 03/15/20 History potassium chloride 20 meq PO BID 02/17/20 03/15/20 History warfarin [Coumadin] 5 mg PO DAILY 02/17/20 03/15/20 History bisacodyl [Dulcolax (bisacodyl)] 10 mg GA DAILY PRN #28 ea 02/20/20 03/15/20 Rx nicotine 14 mg TRANSDERMAL QAM 30 Days #30 02/20/20 03/15/20 Rx ea oxycodone 5 mg PO Q4H PRN 5 Days #15 tab 02/20/20 03/15/20 Rx pantoprazole 40 mg PO BID 30 Days #60 tab 02/20/20 03/15/20 Rx sucralfate [Carafate] 1 gm PO ACHS 28 Days #120 tab 02/20/20 03/15/20 Rx duloxetine 60 mg PO QAM 03/15/20 03/15/20 History Inpatient Medication List Albuterol (Ventolin Hfa) 1 puffs INH QIDR EMPERATRIZ Stop: 04/14/20 18:59 Last Admin: 03/22/20 11:32 Dose: Not Given Documented by: [id number] Admin: 03/22/20 07:42 Dose: Not Given Documented by: [id number] Admin: 03/21/20 19:54 Dose: Not Given Documented by: [id number] Admin: 03/21/20 15:32 Dose: Not Given Documented by: [id number] Admin: 03/21/20 11:05 Dose: Not Given Documented by: [id number] Admin: 03/21/20 07:02 Dose: 1 puffs Documented by: [id number] Admin: 03/20/20 20:00 Dose: Not Given Documented by: [id number] Admin: 03/20/20 14:55 Dose: 1 puffs Documented by: [id number] Admin: 03/20/20 10:46 Dose: 1 puffs Documented by: [id number] Admin: 03/20/20 06:59 Dose: 1 puffs Documented by: [id number] Admin: 03/19/20 19:36 Dose: 1 puffs Documented by: [id number] Admin: 03/19/20 15:00 Dose: 1 puffs Documented by: [id number] Admin: 03/19/20 10:37 Dose: Not Given Documented by: [id number] Admin: 03/19/20 06:59 Dose: 1 puffs Documented by: [id number] Admin: 03/18/20 19:41 Dose: 1 puffs Documented by: [id number] Admin: 03/18/20 15:18 Dose: 1 puffs Documented by: [id number] Admin: 03/18/20 11:08 Dose: 1 puffs Documented by: [id number] Admin: 03/18/20 07:04 Dose: 1 puffs Documented by: [id number] Admin: 03/17/20 19:33 Dose: 1 puffs Documented by: [id number] Admin: 03/17/20 15:41 Dose: 1 puffs Documented by: [id number] Admin: 03/17/20 11:41 Dose: 1 puffs Documented by: [id number] Admin: 03/17/20 07:07 Dose: 1 puffs Documented by: [id number] Admin: 03/16/20 19:22 Dose: Not Given Documented by: [id number] Admin: 03/16/20 14:41 Dose: Not Given Documented by: [id number] Admin: 03/16/20 11:18 Dose: Not Given Documented by: [id number] Admin: 03/16/20 07:15 Dose: 1 puffs Documented by: [id number] Admin: 03/15/20 19:19 Dose: 1 puffs Documented by: [id number] Amitriptyline HCl (Elavil) 50 mg PO HS EMPERATRIZ Stop: 04/14/20 20:59 Last Admin: 03/21/20 20:32 Dose: 50 mg Documented by: [id number] Admin: 03/20/20 21:35 Dose: 50 mg Documented by: [id number] Admin: 03/19/20 20:41 Dose: 50 mg Documented by: [id number] Admin: 03/18/20 20:36 Dose: 50 mg Documented by: [id number] Admin: 03/17/20 20:58 Dose: 50 mg Documented by: [id number] Admin: 03/16/20 20:46 Dose: 50 mg Documented by: [id number] Admin: 03/15/20 20:25 Dose: 50 mg Documented by: [id number] Aspirin (Ecotrin Ectab) 81 [facility] [place] Stop: 04/15/20 08:59 Last Admin: 03/21/20 08:55 Dose: 81 mg Documented by: [id number] Admin: 03/20/20 09:11 Dose: 81 mg Documented by: [id number] Admin: 03/19/20 07:54 Dose: 81 mg Documented by: [id number] Admin: 03/18/20 07:58 Dose: 81 mg Documented by: [id number] Admin: 03/17/20 08:26 Dose: 81 mg Documented by: [id number] Admin: 03/16/20 08:09 Dose: 81 mg Documented by: [id number] Atorvastatin Calcium (Lipitor) 80 mg PO [facility] Stop: 04/15/20 08:59 Last Admin: 03/22/20 08:57 Dose: 80 mg Documented by: [id number] Admin: 03/21/20 08:55 Dose: 80 mg Documented by: [id number] Admin: 03/20/20 09:12 Dose: 80 mg Documented by: [id number] Admin: 03/16/20 08:08 Dose: 80 mg Documented by: [id number] Benzonatate (Tessalon Perle) 100 mg PO TID PRN PRN Reason: Cough Stop: 04/14/20 18:10 Last Admin: 03/20/20 21:46 Dose: 100 mg Documented by: [id number] Admin: 03/19/20 08:04 Dose: 100 mg Documented by: [id number] Admin: 03/18/20 16:19 Dose: 100 mg Documented by: [id number] Admin: 03/18/20 08:22 Dose: 100 mg Documented by: [id number] Cyclobenzaprine HCl (Flexeril) 10 mg PO BID [facility] Stop: 04/14/20 20:59 Last Admin: 03/22/20 09:01 Dose: 10 mg Documented by: [id number] Admin: 03/21/20 20:31 Dose: 10 mg Documented by: [id number] Admin: 03/21/20 09:04 Dose: 10 mg Documented by: [id number] Admin: 03/20/20 21:46 Dose: 10 mg Documented by: [id number] Admin: 03/20/20 09:18 Dose: 10 mg Documented by: [id number] Admin: 03/19/20 20:47 Dose: 10 mg Documented by: [id number] Admin: 03/19/20 08:04 Dose: 10 mg Documented by: [id number] Admin: 03/18/20 20:43 Dose: 10 mg Documented by: [id number] Admin: 03/18/20 08:22 Dose: 10 mg Documented by: [id number] Admin: 03/17/20 21:42 Dose: 10 mg Documented by: [id number] Admin: 03/17/20 08:25 Dose: 10 mg Documented by: [id number] Admin: 03/16/20 20:46 Dose: 10 mg Documented by: [id number] Admin: 03/16/20 08:11 Dose: 10 mg Documented by: [id number] Admin: 03/15/20 20:25 Dose: 10 mg Documented by: [id number] Docusate Sodium (Colace) 100 mg PO BID EMPERATRIZ Stop: 04/14/20 20:59 Last Admin: 03/22/20 08:58 Dose: Not Given Documented by: [id number] Admin: 03/21/20 20:32 Dose: Not Given Documented by: [id number] Admin: 03/21/20 08:57 Dose: Not Given Documented by: [id number] Admin: 03/20/20 21:29 Dose: Not Given Documented by: [id number] Admin: 03/20/20 09:16 Dose: 100 mg Documented by: [id number] Admin: 03/19/20 20:47 Dose: 100 mg Documented by: [id number] Admin: 03/19/20 08:04 Dose: 100 mg Documented by: [id number] Admin: 03/18/20 20:43 Dose: 100 mg Documented by: [id number] Admin: 03/18/20 08:22 Dose: 100 mg Documented by: [id number] Admin: 03/17/20 21:42 Dose: 100 mg Documented by: [id number] Admin: 03/17/20 08:26 Dose: 100 mg Documented by: [id number] Admin: 03/16/20 20:45 Dose: 100 mg Documented by: [id number] Admin: 03/16/20 08:11 Dose: 100 mg Documented by: [id number] Admin: 03/15/20 20:25 Dose: 100 mg Documented by: [id number] Duloxetine HCl (Cymbalta) 90 mg PO [facility]AJD [facility] Stop: 04/19/20 08:59 Last Admin: 03/22/20 08:58 Dose: 90 mg Documented by: [id number] Admin: 03/21/20 08:54 Dose: 90 mg Documented by: [id number] Admin: 03/20/20 09:11 Dose: 90 mg Documented by: [id number] Finasteride (Proscar) 5 mg PO [facility] Stop: 04/15/20 08:59 Last Admin: 03/22/20 08:59 Dose: 5 mg Documented by: [id number] Admin: 03/21/20 08:55 Dose: 5 mg Documented by: [id number] Admin: 03/20/20 09:13 Dose: 5 mg Documented by: [id number] Admin: 03/19/20 07:53 Dose: 5 mg Documented by: [id number] Admin: 03/18/20 07:58 Dose: 5 mg Documented by: [id number] Admin: 03/17/20 08:24 Dose: 5 mg Documented by: [id number] Admin: 03/16/20 08:09 Dose: 5 mg Documented by: [id number] Fluticasone/Vilanterol (Breo Ellipta 200/25 Mcg Inh) 1 puffs INH [facility] Stop: 04/15/20 08:59 Last Admin: 03/22/20 08:56 Dose: 1 puffs Documented by: [id number] Admin: 03/21/20 08:52 Dose: 1 puffs Documented by: [id number] Admin: 03/20/20 09:15 Dose: 1 puffs Documented by: [id number] Admin: 03/19/20 07:56 Dose: 1 puffs Documented by: [id number] Admin: 03/18/20 08:02 Dose: 1 puffs Documented by: [id number] Admin: 03/17/20 08:20 Dose: 1 puffs Documented by: [id number] Admin: 03/16/20 08:11 Dose: 1 puffs Documented by: [id number] Folic Acid (Folvite) 1 mg PO [facility] Stop: 04/15/20 08:59 Last Admin: 03/22/20 08:57 Dose: 1 mg Documented by: [id number] Admin: 03/21/20 08:54 Dose: 1 mg Documented by: [id number] Admin: 03/20/20 09:13 Dose: 1 mg Documented by: [id number] Admin: 03/19/20 07:56 Dose: 1 mg Documented by: [id number] Admin: 03/18/20 07:58 Dose: 1 mg Documented by: [id number] Admin: 03/17/20 08:25 Dose: 1 mg Documented by: [id number] Admin: 03/16/20 08:09 Dose: 1 mg Documented by: [id number] Furosemide (Lasix) 40 mg PO BID EMPERATRIZ Stop: 04/14/20 20:59 Last Admin: 03/22/20 08:55 Dose: 40 mg Documented by: [id number] Admin: 03/21/20 20:33 Dose: 40 mg Documented by: [id number] Admin: 03/21/20 08:55 Dose: 40 mg Documented by: [id number] Admin: 03/20/20 21:35 Dose: 40 mg Documented by: [id number] Admin: 03/20/20 09:14 Dose: 40 mg Documented by: [id number] Admin: 03/19/20 20:42 Dose: 40 mg Documented by: [id number] Admin: 03/19/20 07:54 Dose: 40 mg Documented by: [id number] Admin: 03/18/20 20:35 Dose: 40 mg Documented by: [id number] Admin: 03/18/20 07:59 Dose: 40 mg Documented by: [id number] Admin: 03/17/20 21:00 Dose: 40 mg Documented by: [id number] Admin: 03/17/20 08:21 Dose: 40 mg Documented by: [id number] Admin: 03/16/20 20:47 Dose: 40 mg Documented by: [id number] Admin: 03/16/20 08:12 Dose: 40 mg Documented by: [id number] Admin: 03/15/20 20:24 Dose: 40 mg Documented by: [id number] Gabapentin (Neurontin) 800 mg PO TID EMPERATRIZ Stop: 04/19/20 20:59 Last Admin: 03/22/20 08:54 Dose: 800 mg Documented by: [id number] Admin: 03/21/20 20:34 Dose: 800 mg Documented by: [id number] Admin: 03/21/20 12:34 Dose: 800 mg Documented by: [id number] Admin: 03/21/20 08:53 Dose: 800 mg Documented by: [id number] Admin: 03/20/20 21:54 Dose: 800 mg Documented by: [id number] Hydroxyzine HCl (Vistaril) 25 mg PO QID PRN PRN Reason: Anxiety Stop: 04/14/20 18:10 Last Admin: 03/21/20 18:31 Dose: 25 mg Documented by: [id number] Admin: 03/17/20 20:55 Dose: 25 mg Documented by: [id number] Ampicillin Sodium 2,000 mg/ (Sodium Chloride) 100 mls @ 200 mls/hr IV Q6 EMPERATRIZ; Protocol Stop: 03/22/20 19:14 Last Infusion: 03/22/20 06:35 Dose: 0 mls/hr Documented by: [id number] Admin: 03/22/20 06:05 Dose: 200 mls/hr Documented by: [id number] Infusion: 03/22/20 00:13 Dose: 0 mls/hr Documented by: [id number] Admin: 03/21/20 23:43 Dose: 200 mls/hr Documented by: [id number] Infusion: 03/21/20 18:21 Dose: 0 mls/hr Documented by: [id number] Admin: 03/21/20 17:50 Dose: 200 mls/hr Documented by: [id number] Infusion: 03/21/20 12:27 Dose: 0 mls/hr Documented by: [id number] Admin: 03/21/20 11:49 Dose: 200 mls/hr Documented by: [id number] Infusion: 03/21/20 06:25 Dose: 0 mls/hr Documented by: [id number] Admin: 03/21/20 05:44 Dose: 200 mls/hr Documented by: [id number] Infusion: 03/21/20 00:10 Dose: 0 mls/hr Documented by: [id number] Admin: 03/20/20 23:37 Dose: 200 mls/hr Documented by: [id number] Infusion: 03/20/20 18:09 Dose: 0 mls/hr Documented by: [id number] Admin: 03/20/20 17:39 Dose: 200 mls/hr Documented by: [id number] Infusion: 03/20/20 13:09 Dose: 0 mls/hr Documented by: [id number] Admin: 03/20/20 11:56 Dose: 200 mls/hr Documented by: [id number] Infusion: 03/20/20 07:11 Dose: 0 mls/hr Documented by: [id number] Admin: 03/20/20 06:26 Dose: 200 mls/hr Documented by: [id number] Infusion: 03/20/20 00:05 Dose: 0 mls/hr Documented by: [id number] Admin: 03/19/20 23:22 Dose: 200 mls/hr Documented by: [id number] Infusion: 03/19/20 18:12 Dose: 0 mls/hr Documented by: [id number] Admin: 03/19/20 17:34 Dose: 200 mls/hr Documented by: [id number] Infusion: 03/19/20 12:56 Dose: 0 mls/hr Documented by: [id number] Admin: 03/19/20 12:15 Dose: 200 mls/hr Documented by: [id number] Infusion: 03/19/20 05:49 Dose: 0 mls/hr Documented by: [id number] Admin: 03/19/20 05:16 Dose: 200 mls/hr Documented by: [id number] Infusion: 03/19/20 00:13 Dose: 0 mls/hr Documented by: [id number] Admin: 03/18/20 23:44 Dose: 200 mls/hr Documented by: [id number] Infusion: 03/18/20 18:12 Dose: 0 mls/hr Documented by: [id number] Admin: 03/18/20 17:34 Dose: 200 mls/hr Documented by: [id number] Infusion: 03/18/20 12:14 Dose: 0 mls/hr Documented by: [id number] Admin: 03/18/20 11:15 Dose: 200 mls/hr Documented by: [id number] Infusion: 03/18/20 06:58 Dose: 0 mls/hr Documented by: [id number] Admin: 03/18/20 06:12 Dose: 200 mls/hr Documented by: [id number] Infusion: 03/18/20 00:01 Dose: 0 mls/hr Documented by: [id number] Admin: 03/17/20 23:18 Dose: 200 mls/hr Documented by: [id number] Infusion: 03/17/20 20:33 Dose: 0 mls/hr Documented by: [id number] Admin: 03/17/20 19:41 Dose: 200 mls/hr Documented by: [id number] Insulin Aspart (Novolog Flexpen) 0 units SC ACHS EMPERATRIZ Stop: 04/14/20 20:59 Last Admin: 03/22/20 09:02 Dose: 11 units Documented by: [id number] Cosigned by: [id number] Admin: 03/21/20 20:30 Dose: Not Given Documented by: [id number] Cosigned by: [id number] Admin: 03/21/20 17:50 Dose: 8 units Documented by: [id number] Cosigned by: [id number] Admin: 03/21/20 12:33 Dose: 7 units Documented by: [id number] Cosigned by: [id number] Admin: 03/21/20 09:05 Dose: 9 units Documented by: [id number] Cosigned by: [id number] Admin: 03/20/20 21:47 Dose: 6 units Documented by: [id number] Cosigned by: [id number] Admin: 03/20/20 17:51 Dose: 11 units Documented by: [id number] Cosigned by: [id number] Admin: 03/20/20 13:23 Dose: 7 units Documented by: [id number] Cosigned by: [id number] Admin: 03/20/20 09:19 Dose: 9 units Documented by: [id number] Cosigned by: [id number] Admin: 03/19/20 20:39 Dose: Not Given Documented by: [id number] Cosigned by: [id number] Admin: 03/19/20 17:29 Dose: 5 units Documented by: [id number] Cosigned by: [id number] Admin: 03/19/20 12:15 Dose: 8 units Documented by: [id number] Cosigned by: [id number] Admin: 03/19/20 08:07 Dose: 9 units Documented by: [id number] Cosigned by: [id number] Admin: 03/18/20 21:14 Dose: 8 units Documented by: [id number] Cosigned by: [id number] Admin: 03/18/20 17:33 Dose: 10 units Documented by: [id number] Cosigned by: [id number] Admin: 03/18/20 12:09 Dose: 10 units Documented by: [id number] Cosigned by: [id number] Admin: 03/18/20 08:03 Dose: 9 units Documented by: [id number] Cosigned by: [id number] Admin: 03/17/20 21:31 Dose: Not Given Documented by: [id number] Cosigned by: [id number] Admin: 03/17/20 17:32 Dose: 9 units Documented by: [id number] Cosigned by: [id number] Admin: 03/17/20 11:50 Dose: 8 units Documented by: [id number] Cosigned by: [id number] Admin: 03/17/20 08:18 Dose: 8 units Documented by: [id number] Cosigned by: [id number] Admin: 03/16/20 21:04 Dose: 6 units Documented by: [id number] Cosigned by: [id number] Admin: 03/16/20 17:29 Dose: 13 units Documented by: [id number] Cosigned by: [id number] Admin: 03/16/20 12:52 Dose: 9 units Documented by: [id number] Cosigned by: [id number] Admin: 03/16/20 08:48 Dose: 11 units Documented by: [id number] Cosigned by: [id number] Admin: 03/15/20 20:15 Dose: Not Given Documented by: [id number] Cosigned by: [id number] Ipratropium [place] (Atrovent Hfa) 1 puffs INH QIDR EMPERATRIZ Stop: 04/14/20 18:59 Last Admin: 03/22/20 11:32 Dose: Not Given Documented by: [id number] Admin: 03/22/20 07:41 Dose: Not Given Documented by: [id number] Admin: 03/21/20 19:54 Dose: Not Given Documented by: [id number] Admin: 03/21/20 15:32 Dose: Not Given Documented by: [id number] Admin: 03/21/20 11:05 Dose: Not Given Documented by: [id number] Admin: 03/21/20 07:02 Dose: 1 puffs Documented by: [id number] Admin: 03/20/20 20:00 Dose: Not Given Documented by: [id number] Admin: 03/20/20 14:55 Dose: 1 puffs Documented by: [id number] Admin: 03/20/20 10:46 Dose: 1 puffs Documented by: [id number] Admin: 03/20/20 06:59 Dose: 1 puffs Documented by: [id number] Admin: 03/19/20 19:35 Dose: 1 puffs Documented by: [id number] Admin: 03/19/20 14:59 Dose: 1 puffs Documented by: [id number] Admin: 03/19/20 10:37 Dose: Not Given Documented by: [id number] Admin: 03/19/20 06:58 Dose: 1 puffs Documented by: [id number] Admin: 03/18/20 19:38 Dose: 1 puffs Documented by: [id number] Admin: 03/18/20 15:19 Dose: 1 puffs Documented by: [id number] Admin: 03/18/20 11:08 Dose: 1 puffs Documented by: [id number] Admin: 03/18/20 07:04 Dose: 1 puffs Documented by: [id number] Admin: 03/17/20 19:34 Dose: 1 puffs Documented by: [id number] Admin: 03/17/20 15:40 Dose: 1 puffs Documented by: [id number] Admin: 03/17/20 11:41 Dose: 1 puffs Documented by: [id number] Admin: 03/17/20 07:07 Dose: 1 puffs Documented by: [id number] Admin: 03/16/20 19:22 Dose: Not Given Documented by: [id number] Admin: 03/16/20 14:40 Dose: Not Given Documented by: [id number] Admin: 03/16/20 11:18 Dose: Not Given Documented by: [id number] Admin: 03/16/20 07:16 Dose: 1 puffs Documented by: [id number] Admin: 03/15/20 19:25 Dose: 1 puffs Documented by: [id number] Isosorbide Mononitrate (Imdur Extended Rel) 30 mg PO QAM EMPERATRIZ Stop: 04/15/20 08:59 Last Admin: 03/22/20 08:58 Dose: 30 mg Documented by: [id number] Admin: 03/21/20 11:49 Dose: 30 mg Documented by: [id number] Admin: 03/20/20 09:14 Dose: 30 mg Documented by: [id number] Admin: 03/19/20 07:55 Dose: 30 mg Documented by: [id number] Admin: 03/18/20 07:57 Dose: 30 mg Documented by: [id number] Admin: 03/17/20 08:21 Dose: 30 mg Documented by: [id number] Admin: 03/16/20 08:09 Dose: 30 mg Documented by: [id number] Lorazepam (Ativan) 0.5 mg PO TID PRN PRN Reason: Anxiety Stop: 04/14/20 18:10 Last Admin: 03/22/20 09:01 Dose: 0.5 mg Documented by: [id number] Admin: 03/21/20 20:30 Dose: 0.5 mg Documented by: [id number] Admin: 03/21/20 09:04 Dose: 0.5 mg Documented by: [id number] Admin: 03/20/20 21:54 Dose: 0.5 mg Documented by: [id number] Admin: 03/20/20 09:10 Dose: 0.5 mg Documented by: [id number] Admin: 03/19/20 08:03 Dose: 0.5 mg Documented by: [id number] Admin: 03/18/20 20:44 Dose: 0.5 mg Documented by: [id number] Admin: 03/18/20 16:19 Dose: 0.5 mg Documented by: [id number] Admin: 03/17/20 20:55 Dose: 0.5 mg Documented by: [id number] Admin: 03/17/20 08:33 Dose: 0.5 mg Documented by: [id number] Admin: 03/16/20 23:09 Dose: 0.5 mg Documented by: [id number] Magnesium Hydroxide (Milk Of Magnesia) 30 ml PO Q12H PRN PRN Reason: Constipation Stop: 04/14/20 16:20 Last Admin: 03/20/20 06:27 Dose: 30 ml Documented by: [id number] Admin: 03/18/20 12:43 Dose: 30 ml Documented by: [id number] Magnesium Oxide (Mag-Ox) 400 mg PO QAM EMPERATRIZ Stop: 04/15/20 08:59 Last Admin: 03/22/20 08:57 Dose: 400 mg Documented by: [id number] Admin: 03/21/20 08:54 Dose: 400 mg Documented by: [id number] Admin: 03/20/20 09:14 Dose: 400 mg Documented by: [id number] Admin: 03/19/20 07:54 Dose: 400 mg Documented by: [id number] Admin: 03/18/20 07:57 Dose: 400 mg Documented by: [id number] Admin: 03/17/20 08:26 Dose: 400 mg Documented by: [id number] Admin: 03/16/20 08:07 Dose: 400 mg Documented by: [id number] Metoprolol Succinate (Toprol Xl) 50 mg PO BID EMPERATRIZ Stop: 04/14/20 20:59 Last Admin: 03/22/20 08:54 Dose: 50 mg Documented by: [id number] Admin: 03/21/20 20:38 Dose: 50 mg Documented by: [id number] Admin: 03/21/20 08:53 Dose: 50 mg Documented by: [id number] Admin: 03/20/20 21:44 Dose: Not Given Documented by: [id number] Admin: 03/20/20 09:15 Dose: 50 mg Documented by: [id number] Admin: 03/19/20 20:39 Dose: 50 mg Documented by: [id number] Admin: 03/19/20 07:55 Dose: 50 mg Documented by: [id number] Admin: 03/18/20 20:36 Dose: 50 mg Documented by: [id number] Admin: 03/18/20 08:00 Dose: Not Given Documented by: [id number] Admin: 03/17/20 21:03 Dose: Not Given Documented by: [id number] Admin: 03/17/20 08:27 Dose: 50 mg Documented by: [id number] Admin: 03/16/20 20:46 Dose: 50 mg Documented by: [id number] Admin: 03/16/20 08:10 Dose: 50 mg Documented by: [id number] Admin: 03/15/20 20:25 Dose: 50 mg Documented by: [id number] Oxycodone HCl (Roxicodone Immediate Rel) 10 mg PO Q6 PRN PRN Reason: Severe Pain Stop: 03/30/20 14:35 Last Admin: 03/22/20 06:06 Dose: 10 mg Documented by: [id number] Admin: 03/21/20 17:50 Dose: 10 mg Documented by: [id number] Admin: 03/21/20 11:48 Dose: 10 mg Documented by: [id number] Admin: 03/21/20 05:44 Dose: 10 mg Documented by: [id number] Admin: 03/20/20 23:36 Dose: 10 mg Documented by: [id number] Pantoprazole Sodium (Protonix) 40 mg PO BID EMPERATRIZ Stop: 04/14/20 20:59 Last Admin: 03/22/20 08:54 Dose: 40 mg Documented by: [id number] Admin: 03/21/20 20:36 Dose: 40 mg Documented by: [id number] Admin: 03/21/20 08:53 Dose: 40 mg Documented by: [id number] Admin: 03/20/20 21:35 Dose: 40 mg Documented by: [id number] Admin: 03/20/20 09:14 Dose: 40 mg Documented by: [id number] Admin: 03/19/20 20:42 Dose: 40 mg Documented by: [id number] Admin: 03/19/20 07:54 Dose: 40 mg Documented by: [id number] Admin: 03/18/20 20:36 Dose: 40 mg Documented by: [id number] Admin: 03/18/20 07:58 Dose: 40 mg Documented by: [id number] Admin: 03/17/20 21:02 Dose: 40 mg Documented by: [id number] Admin: 03/17/20 08:27 Dose: 40 mg Documented by: [id number] Admin: 03/16/20 20:48 Dose: 40 mg Documented by: [id number] Admin: 03/16/20 08:06 Dose: 40 mg Documented by: [id number] Admin: 03/15/20 20:24 Dose: 40 mg Documented by: [id number] Polyethylene Glycol (Miralax Powder Packet) 17 gm PO BID EMPERATRIZ Stop: 04/15/20 20:59 Last Admin: 03/22/20 08:59 Dose: Not Given Documented by: [id number] Admin: 03/21/20 20:31 Dose: 17 gm Documented by: [id number] Admin: 03/21/20 09:05 Dose: 17 gm Documented by: [id number] Admin: 03/20/20 21:29 Dose: Not Given Documented by: [id number] Admin: 03/20/20 09:15 Dose: 17 gm Documented by: [id number] Admin: 03/19/20 20:47 Dose: 17 gm Documented by: [id number] Admin: 03/19/20 08:04 Dose: 17 gm Documented by: [id number] Admin: 03/18/20 20:43 Dose: 17 gm Documented by: [id number] Admin: 03/18/20 07:59 Dose: 17 gm Documented by: [id number] Admin: 03/17/20 21:01 Dose: 17 gm Documented by: [id number] Admin: 03/17/20 08:25 Dose: 17 gm Documented by: [id number] Admin: 03/16/20 20:46 Dose: 17 gm Documented by: [id number] Potassium Chloride (Klor-Con M20) 20 meq PO BID EMPERATRIZ Stop: 04/14/20 20:59 Last Admin: 03/22/20 08:58 Dose: 20 meq Documented by: [id number] Admin: 03/21/20 20:32 Dose: 20 meq Documented by: [id number] Admin: 03/21/20 08:54 Dose: 20 meq Documented by: [id number] Admin: 03/20/20 21:35 Dose: 20 meq Documented by: [id number] Admin: 03/20/20 09:11 Dose: 20 meq Documented by: [id number] Admin: 03/19/20 20:40 Dose: 20 meq Documented by: [id number] Admin: 03/19/20 07:55 Dose: 20 meq Documented by: [id number] Admin: 03/18/20 20:35 Dose: 20 meq Documented by: [id number] Admin: 03/18/20 07:57 Dose: 20 meq Documented by: [id number] Admin: 03/17/20 21:00 Dose: 20 meq Documented by: [id number] Admin: 03/17/20 08:21 Dose: 20 meq Documented by: [id number] Admin: 03/16/20 20:47 Dose: 20 meq Documented by: [id number] Admin: 03/16/20 08:11 Dose: 20 meq Documented by: [id number] Admin: 03/15/20 20:26 Dose: 20 meq Documented by: [id number] Sennosides (Senokot) 17.2 mg PO BID EMPERATRIZ Stop: 04/14/20 20:59 Last Admin: 03/22/20 08:59 Dose: Not Given Documented by: [id number] Admin: 03/21/20 20:36 Dose: Not Given Documented by: [id number] Admin: 03/21/20 08:58 Dose: Not Given Documented by: [id number] Admin: 03/20/20 21:30 Dose: Not Given Documented by: [id number] Admin: 03/20/20 09:15 Dose: 17.2 mg Documented by: [id number] Admin: 03/19/20 20:41 Dose: 17.2 mg Documented by: [id number] Admin: 03/19/20 07:53 Dose: 17.2 mg Documented by: [id number] Admin: 03/18/20 20:35 Dose: 17.2 mg Documented by: [id number] Admin: 03/18/20 07:59 Dose: 17.2 mg Documented by: [id number] Admin: 03/17/20 21:02 Dose: 17.2 mg Documented by: [id number] Admin: 03/17/20 08:27 Dose: 17.2 mg Documented by: [id number] Admin: 03/16/20 20:43 Dose: 17.2 mg Documented by: [id number] Admin: 03/16/20 08:10 Dose: 17.2 mg Documented by: [id number] Admin: 03/15/20 20:24 Dose: 17.2 mg Documented by: [id number] Spironolactone (Aldactone) 25 mg PO QAM EMPERATRIZ Stop: 04/15/20 08:59 Last Admin: 03/22/20 08:56 Dose: 25 mg Documented by: [id number] Admin: 03/21/20 08:54 Dose: 25 mg Documented by: [id number] Admin: 03/20/20 09:13 Dose: 25 mg Documented by: [id number] Admin: 03/19/20 07:54 Dose: 25 mg Documented by: [id number] Admin: 03/18/20 07:57 Dose: 25 mg Documented by: [id number] Admin: 03/17/20 08:26 Dose: 25 mg Documented by: [id number] Admin: 03/16/20 08:07 Dose: 25 mg Documented by: [id number] Sucralfate (Carafate Tab) 1 gm PO ACHS EMPERATRIZ Stop: 04/14/20 18:10 Last Admin: 03/22/20 08:55 Dose: 1 gm Documented by: [id number] Admin: 03/21/20 20:38 Dose: 1 gm Documented by: [id number] Admin: 03/21/20 17:14 Dose: 1 gm Documented by: [id number] Admin: 03/21/20 11:49 Dose: 1 gm Documented by: [id number] Admin: 03/21/20 08:54 Dose: 1 gm Documented by: [id number] Admin: 03/20/20 21:35 Dose: 1 gm Documented by: [id number] Admin: 03/20/20 17:42 Dose: 1 gm Documented by: [id number] Admin: 03/20/20 09:12 Dose: 1 gm Documented by: [id number] Admin: 03/20/20 06:25 Dose: 1 gm Documented by: [id number] Admin: 03/19/20 20:39 Dose: 1 gm Documented by: [id number] Admin: 03/19/20 16:16 Dose: 1 gm Documented by: [id number] Admin: 03/19/20 11:39 Dose: 1 gm Documented by: [id number] Admin: 03/19/20 07:54 Dose: 1 gm Documented by: [id number] Admin: 03/18/20 20:36 Dose: 1 gm Documented by: [id number] Admin: 03/18/20 16:21 Dose: 1 gm Documented by: [id number] Admin: 03/18/20 11:18 Dose: 1 gm Documented by: [id number] Admin: 03/18/20 08:00 Dose: 1 gm Documented by: [id number] Admin: 03/17/20 20:56 Dose: 1 gm Documented by: [id number] Admin: 03/17/20 17:31 Dose: 1 gm Documented by: [id number] Admin: 03/17/20 11:48 Dose: 1 gm Documented by: [id number] Admin: 03/17/20 08:17 Dose: 1 gm Documented by: [id number] Admin: 03/16/20 20:43 Dose: 1 gm Documented by: [id number] Admin: 03/16/20 16:42 Dose: 1 gm Documented by: [id number] Admin: 03/16/20 12:46 Dose: 1 gm Documented by: [id number] Admin: 03/16/20 08:10 Dose: 1 gm Documented by: [id number] Admin: 03/15/20 20:27 Dose: Not Given Documented by: [id number] Admin: 03/15/20 20:25 Dose: 1 gm Documented by: [id number] Tamsulosin HCl (Flomax) 0.4 mg PO QAM EMPERATRIZ Stop: 04/15/20 08:59 Last Admin: 03/22/20 08:57 Dose: 0.4 mg Documented by: [id number] Admin: 03/21/20 08:55 Dose: 0.4 mg Documented by: [id number] Admin: 03/20/20 09:14 Dose: 0.4 mg Documented by: [id number] Admin: 03/19/20 07:55 Dose: 0.4 mg Documented by: [id number] Admin: 03/18/20 07:58 Dose: 0.4 mg Documented by: [id number] Admin: 03/17/20 08:23 Dose: 0.4 mg Documented by: [id number] Admin: 03/16/20 08:07 Dose: 0.4 mg Documented by: [id number] Umeclidinium [place] (Incruse Ellipta) 1 puffs INH QAM EMPERATRIZ Stop: 04/15/20 08:59 Last Admin: 03/22/20 08:56 Dose: 1 puffs Documented by: [id number] Admin: 03/21/20 08:56 Dose: 1 puffs Documented by: [id number] Admin: 03/20/20 09:16 Dose: 1 puffs Documented by: [id number] Admin: 03/19/20 07:56 Dose: 1 puffs Documented by: [id number] Admin: 03/18/20 08:00 Dose: 1 puffs Documented by: [id number] Admin: 03/17/20 08:21 Dose: 1 puffs Documented by: [id number] Admin: 03/16/20 08:12 Dose: 1 puffs Documented by: [id number] Warfarin Sodium (Coumadin) 5 mg PO DAILY@1600 EMPERATRIZ Stop: 04/18/20 15:59 Last Admin: 03/21/20 17:14 Dose: 5 mg Documented by: [id number] Admin: 03/20/20 17:42 Dose: 5 mg Documented by: [id number] Admin: 03/19/20 16:15 Dose: 5 mg Documented by: [id number] Discontinued Medications Duloxetine HCl (Cymbalta) 60 mg PO QAM EMPERATRIZ Stop: 04/15/20 08:59 Last Admin: 03/19/20 07:54 Dose: 60 mg Documented by: [id number] Admin: 03/18/20 07:58 Dose: 60 mg Documented by: [id number] Admin: 03/17/20 08:20 Dose: 60 mg Documented by: [id number] Admin: 03/16/20 08:08 Dose: 60 mg Documented by: [id number] Furosemide (Lasix) 40 mg IV NOW STA Stop: 03/15/20 15:58 Last Admin: 03/15/20 16:48 Dose: 40 mg Documented by: [id number] Gabapentin (Neurontin) 600 mg PO TID EMPERATRIZ Stop: 04/14/20 20:59 Last Admin: 03/20/20 13:23 Dose: 600 mg Documented by: [id number] Admin: 03/20/20 09:14 Dose: 600 mg Documented by: [id number] Admin: 03/19/20 20:41 Dose: 600 mg Documented by: [id number] Admin: 03/19/20 14:01 Dose: 600 mg Documented by: [id number] Admin: 03/19/20 07:53 Dose: 600 mg Documented by: [id number] Admin: 03/18/20 20:36 Dose: 600 mg Documented by: [id number] Admin: 03/18/20 12:44 Dose: 600 mg Documented by: [id number] Admin: 03/18/20 07:59 Dose: 600 mg Documented by: [id number] Admin: 03/17/20 21:01 Dose: 600 mg Documented by: [id number] Admin: 03/17/20 14:12 Dose: 600 mg Documented by: [id number] Admin: 03/17/20 08:20 Dose: 600 mg Documented by: [id number] Admin: 03/16/20 20:48 Dose: 600 mg Documented by: [id number] Admin: 03/16/20 12:46 Dose: 600 mg Documented by: [id number] Admin: 03/16/20 08:05 Dose: 600 mg Documented by: [id number] Admin: 03/15/20 20:25 Dose: 600 mg Documented by: [id number] Hydromorphone HCl (Dilaudid) 1.5 mg IV NOW STA Stop: 03/15/20 16:37 Last Admin: 03/15/20 16:48 Dose: 1.5 mg Documented by: [id number] Hydromorphone HCl (Dilaudid) 1 mg IV ONE ONE Stop: 03/17/20 10:31 Last Admin: 03/17/20 10:49 Dose: 1 mg Documented by: [id number] Ceftriaxone Sodium (Rocephin) 2,000 mg in 70 mls @ 140 mls/hr IV NOW STA Stop: 03/15/20 16:26 Last Infusion: 03/15/20 18:27 Dose: 0 mls/hr Documented by: [id number] Admin: 03/15/20 16:48 Dose: 140 mls/hr Documented by: [id number] Ceftriaxone Sodium 2,000 mg/ (Dextrose) 70 mls @ 100 mls/hr IV Q24H EMPERATRIZ; Protocol Stop: 03/26/20 15:59 Last Infusion: 03/17/20 18:13 Dose: 0 mls/hr Documented by: [id number] Admin: 03/17/20 17:30 Dose: 100 mls/hr Documented by: [id number] Infusion: 03/16/20 17:28 Dose: 0 mls/hr Documented by: [id number] Admin: 03/16/20 16:37 Dose: 100 mls/hr Documented by: [id number] Daptomycin 500 mg/ Syringe 10 mls @ 5 mls/min IV Q24H EMPERATRIZ; Protocol Stop: 03/21/20 14:59 Last Admin: 03/17/20 17:30 Dose: 5 mls/min Documented by: [id number] Admin: 03/16/20 15:54 Dose: 5 mls/min Documented by: [id number] Ketorolac Tromethamine (Toradol) 15 mg IV NOW STA Stop: 03/22/20 01:37 Last Admin: 03/22/20 01:56 Dose: 15 mg Documented by: [id number] Oxycodone HCl (Roxicodone Immediate Rel) 5 mg PO Q4H PRN PRN Reason: Pain Stop: 03/29/20 18:10 Last Admin: 03/16/20 12:49 Dose: 5 mg Documented by: [id number] Admin: 03/16/20 08:06 Dose: 5 mg Documented by: [id number] Admin: 03/16/20 01:30 Dose: 5 mg Documented by: [id number] Oxycodone HCl (Roxicodone Immediate Rel) 5 mg PO Q4H PRN PRN Reason: Moderate Pain Stop: 03/29/20 18:10 Last Admin: 03/19/20 20:37 Dose: 5 mg Documented by: [id number] Admin: 03/19/20 16:42 Dose: 5 mg Documented by: [id number] Admin: 03/19/20 11:39 Dose: 5 mg Documented by: [id number] Admin: 03/19/20 05:47 Dose: 5 mg Documented by: [id number] Admin: 03/19/20 01:43 Dose: 5 mg Documented by: [id number] Admin: 03/18/20 21:43 Dose: 5 mg Documented by: [id number] Admin: 03/18/20 17:30 Dose: 5 mg Documented by: [id number] Admin: 03/18/20 12:42 Dose: 5 mg Documented by: [id number] Admin: 03/18/20 08:22 Dose: 5 mg Documented by: [id number] Admin: 03/18/20 03:39 Dose: 5 mg Documented by: [id number] Admin: 03/17/20 21:43 Dose: 5 mg Documented by: [id number] Admin: 03/17/20 17:35 Dose: 5 mg Documented by: [id number] Oxycodone HCl (Roxicodone Immediate Rel) 10 mg PO Q4H PRN PRN Reason: Severe Pain Stop: 03/30/20 14:35 Last Admin: 03/20/20 17:39 Dose: 10 mg Documented by: [id number] Admin: 03/20/20 13:23 Dose: 10 mg Documented by: [id number] Admin: 03/20/20 09:10 Dose: 10 mg Documented by: [id number] Admin: 03/20/20 01:58 Dose: 10 mg Documented by: [id number] Admin: 03/19/20 22:02 Dose: 10 mg Documented by: [id number] Admin: 03/19/20 17:31 Dose: 10 mg Documented by: [id number] Admin: 03/19/20 12:32 Dose: 10 mg Documented by: [id number] Admin: 03/19/20 05:15 Dose: 10 mg Documented by: [id number] Admin: 03/19/20 01:10 Dose: 10 mg Documented by: [id number] Admin: 03/18/20 21:10 Dose: 10 mg Documented by: [id number] Admin: 03/18/20 16:55 Dose: 10 mg Documented by: [id number] Admin: 03/18/20 13:23 Dose: 10 mg Documented by: [id number] Admin: 03/18/20 09:16 Dose: 10 mg Documented by: [id number] Admin: 03/18/20 04:13 Dose: 10 mg Documented by: [id number] Admin: 03/17/20 22:21 Dose: 10 mg Documented by: [id number] Admin: 03/17/20 18:16 Dose: 10 mg Documented by: [id number] Admin: 03/17/20 14:13 Dose: 10 mg Documented by: [id number] Admin: 03/17/20 10:11 Dose: 10 mg Documented by: [id number] Admin: 03/17/20 06:08 Dose: 10 mg Documented by: [id number] Admin: 03/17/20 00:53 Dose: 10 mg Documented by: [id number] Admin: 03/16/20 20:53 Dose: 10 mg Documented by: [id number] Admin: 03/16/20 16:46 Dose: 10 mg Documented by: [id number] Oxycodone HCl (Roxicodone Immediate Rel) 10 mg PO NOW STA Stop: 03/21/20 22:11 Last Admin: 03/21/20 22:17 Dose: 10 mg Documented by: [id number] Polyethylene Glycol (Miralax Powder Packet) 17 gm PO QAM EMPERATRIZ Stop: 04/15/20 08:59 Last Admin: 03/16/20 08:46 Dose: 17 gm Documented by: [id number] Description This is a 21 electrode EEG with a single channel dedicated to limited EKG. The electrodes were placed in accordance with the International 10-20 system. The background rhythm consists of a mix of 10 Hz alpha activity and 6 Hz theta rhythm. There is muscle artifact seen throughout the study. Photic stimulation is unremarkable. Hyperventilation is not performed. There is no focal or lateralized slowing. No epileptiform abnormalities observed. No vertex waves or sleep spindles observed. Interpretation This awake/drowsy EEG reveals findings suggestive of drowsiness and a possible mild encephalopathy. No epileptiform abnormalities observed. Further clinical correlation may be needed. [facility] EEG Procedure Codes Indication for Procedure (1) Seizure-like activity: Neurology Neurology: [id number] EEG include record awake & drowsy
--- NOTE | 2020-03-22 18:40 | Hospitalist Progress Note ---
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 Present on admission with bladder discomfort and reported fever at home WBC elevated on admission UA showed leukocyte esterase, WBC's, RBC's. Urine culture grew enterococcus faecalis, sensitive to ampicillin. Initially received ceftriaxone and daptomycin. Antibiotic therapy changed to IV ampicillin. WBC trending down Will complete course of abx today Clinically stable (2) Chest pain: Chronic intermittent chest pain. Repeat troponin today normal EKG repeat today showed no evidence of ischemic changes Recurrent PE very unlikely with supratherapeutic INR. (3) Chronic diastolic CHF (congestive heart failure): Patient feels that 2000 ml fluid restriction too strict Previous hospitalist teams changed fluid restriction to 3000 ml CXR showed unchanged mild cardiomegaly. Continue furosemide. Will change fluid restriction to 2L since his weight 204 Kg today Continue monitor I/O and weight (4) HTN (hypertension): BP stable Continue metoprolol. (5) History of pulmonary embolism: INR 4.4 today Coumadin on hold (6) Elevated INR: History of DVT and PE. Not candidate for DOAC because of BMI. It has been challenging to maintain INR in therapeutic range. History of SDH several months ago. INR 6.2 at time of admission. No apparent bleeding complications and no need to reverse warfarin. INR today = 4.4 today Possible related to IV abx Will hold Coumadin today Continue monitor INR (7) COPD (chronic obstructive pulmonary disease): Pulmonary status stable. (8) DM type 2 (diabetes mellitus, type 2): Continue insulin sliding scale Continue monitor BS (9) Morbid obesity: Wt 204 kg. BMI 60. Counseling on diet and weight loss (10) Therapeutic opioid induced constipation: Continue stools softener for Miralax and senokot (11) Chronic pain: (12) Neuropathy: Chronic pain syndrome as extensively documented in previous records. Review of PDMP reveals multiple prescriptions for analgesics by multiple providers at multiple pharmacies. Seen by pain clinics over the years, but has not been able to maintain a long- term relationship with any. Discussed with pt about the potential risks of narcotic analgesics. Initially ordered oxycodone IR 5 mg q 4 hrs PRN. Oxycodone changed to q6h PRN Neuro on board and recommended to increased gabapentin to 800mg q8h and Duloxetine to 90mg daily Pt is asking for narcotic script on discharge, even after mentioning to him that we will not give any script for narcotic on discharge Case discussed with Neuro Dr. Dunham that recommended to decrease the Duloxetine 60mg (13) COVID-19 ruled out: Reports fever, cough, dysgeusia at home. COVID-19 PCR was negative in December. No sick contacts. SARS-CoV-2 negative during hospital course He still believes that he has COVID 19 because he lost his taste bud and smell sensation COVID-19 just to reassure him and his partner pending (14) Abdominal pain: Patient complains of right-sided abdominal pain. He is worried about his gallbladder, but exam not consistent. However, is at risk for rectus sheath hematoma from elevated INR. CT abd/pelvis negative for acute processes. (15) DVT prophylaxis: Continue warfarin. INR 2.2 today Shakiness Involuntary movement CT head showed no acute intracranial abnormality EEG showed no evidence of seizure Case discussed with neurology that recommended to change Duloxetine back to 60mg Follow up with Neurology outpatient Fall precaution (16) Discharge planning issues: Anticipated discharge to home. Internal Medicine follow-up with Dr. Askew. Admission and Anticipated Discharge Date Admission Date: March 15, 2020 Subjective Pt was seen and examined Lying in bed with no distress Pt said that he had a jerking movement early while trying to reach to grab something He said that his said that he experienced that in the past couple time He said that this morning he hit his head on the rail of the bed He said that the pain med does not have anything to do with the shakiness episodes He doesn't want his fluid to decrease Denies any chest pain palpitation, dizziness and SOB Physical Exam Physical Exam: General- No acute distress Head- atraumatic Eyes- PERRL, EOMI, ENT- oropharynx clear Neck- supple, no JVD Lungs- + rhonchi Heart- regular rhythm; no murmur Abdomen- normal bowel sounds, soft, nontender Extremities- no calf tenderness, +edema Neuro- alert, oriented x 3; PERRL, EOMI; no facial palsy; no dysarthria Skin- warm & dry Results & Data Results & Data ([facility]) Vital Signs (Past 12 Hours) Vital Signs Temp Pulse Resp BP BP Pulse Ox 03/22/20 16:15 36.8 C 77 17 108/63 95 07/03/20 08:13 36.4 C L 68 16 110/68 97 (1) COPD (chronic obstructive pulmonary disease) COPD type: unspecified COPD Qualified Code(s): J44.9 - Chronic obstructive pulmonary disease, unspecified (2) Chest pain Chest pain type: unspecified Qualified Code(s): R07.9 - Chest pain, unspecified (3) HTN (hypertension) Hypertension type: essential hypertension Qualified Code(s): I10 - Essential (primary) hypertension
[2020-03-22] MEDS: AMITRIPTYLINE HCL 50 MG TAB PO SCH (20:08)
[2020-03-23] MEDS: OXYCODONE HCL IR 5 MG TAB (IMMEDIATE RELEASE) PO PRN ×4 (04:12→22:07)
[2020-03-23 06:41] LABS: Hematocrit (blood only) 36.1 % (42-52); Mean Corpuscular Hemoglobin 22.7 pg (25-34); Mean Corpuscular Hgb Conc 30.5 g/dL (32-36); Mean Corpuscular Volume 74.4 fL (80-100); Platelet Count 303 K/uL (130-400); RDW Coefficient of Variation 19.1 % (11.5-14.5); Red Blood Count 4.85 M/uL (4.7-6.1); White Blood Count 11.04 K/uL (4.8-10.8)
[2020-03-23 06:59] LABS: INR 4.4 (0.9-1.1); Prothrombin Time 42.8 Seconds (9.0-12.0)
[2020-03-23] MEDS: ALBUTEROL HFA 8 GM INHALER INH SCH ×4 (07:11→19:40)
[2020-03-23] MEDS: IPRATROPIUM BROMIDE HFA INHALER INH SCH ×4 (07:11→19:40)
[2020-03-23] MEDS: SUCRALFATE 1 GM TAB PO SCH ×4 (08:27→21:09)
[2020-03-23] MEDS: FOLIC ACID 1 MG TAB PO SCH (08:28)
[2020-03-23] MEDS: TAMSULOSIN HCL 0.4 MG CAP PO SCH (08:28)
[2020-03-23] MEDS: ISOSORBIDE MONO EXTENDED REL 30 MG TABCR PO SCH (08:29)
[2020-03-23] MEDS: FUROSEMIDE 40 MG TAB PO SCH ×2 (08:29→21:09)
[2020-03-23] MEDS: POTASSIUM CHLORIDE 20 MEQ TABCR PO SCH ×2 (08:29→21:09)
[2020-03-23] MEDS: ATORVASTATIN 40 MG TAB PO SCH (08:30)
[2020-03-23] MEDS: UMECLIDINIUM BROMIDE 62.5MCG/BLISTER 7 PUFFS/INHALER INH SCH (08:30)
[2020-03-23] MEDS: MAGNESIUM OXIDE 400 MG TAB PO SCH (08:30)
[2020-03-23] MEDS: PANTOprazole 40 MG TAB PO SCH ×2 (08:31→21:08)
[2020-03-23] MEDS: GABAPENTIN 400 MG CAP PO SCH ×3 (08:31→21:08)
[2020-03-23] MEDS: FINASTERIDE 5 MG TAB PO SCH (08:31)
[2020-03-23] MEDS: SPIRONOLACTONE 25 MG TAB PO SCH (08:32)
[2020-03-23] MEDS: FLUTICASONE/VILANTEROL 200/25MCG 14 PUFFS/INHALER INH SCH (08:32)
[2020-03-23] MEDS: SENNA 8.6 MG TAB PO SCH ×2 (08:33→20:57)
[2020-03-23] MEDS: DULOXETINE HCL 60 MG CAP PO SCH (09:33)
[2020-03-23] MEDS: POLYETHYLENE (MIRALAX) 17 GM PACK PO SCH ×2 (09:34→20:57)
[2020-03-23] MEDS: METOPROLOL SUCC 50MG EXT REL TAB PO SCH ×2 (09:34→21:10)
[2020-03-23] MEDS: DOCUSATE SODIUM 100 MG CAP PO SCH ×2 (09:34→20:57)
[2020-03-23] MEDS: INSULIN ASPART 100 UNITS/ML 3 ML PEN SC SCH ×4 (09:38→21:16)
[2020-03-23] MEDS: CYCLOBENZAPRINE HCL 10 MG TAB PO SCH ×2 (09:46→21:09)
[2020-03-23 10:34] LABS: Anti Cardiolipin Ab IgG <14 GPL; Anti Cardiolipin Ab IgM <12 MPL; Anti Nuclear Antibody Screen POSITIVE (NEGATIVE); Anti-Cardiolipin Ab IgA <11 APL; Anti-Centromere Ab <1.0 NEG AI (<1.0 NEG); Anti-SS-A <1.0 NEG AI (<1.0 NEG); Anti-SS-B <1.0 NEG AI (<1.0 NEG); Chromatin Antibody <1.0 NEG AI (<1.0 NEG); Complement C3 175 mg/dL (82-185); DNA ds Crithidia NEGATIVE (NEGATIVE); Microsomal Ab <1 IU/mL (<9); RNP Antibody <1.0 NEG AI (<1.0 NEG); Scleroderma Anti Scl-70 Ab <1.0 NEG AI (<1.0 NEG); Sm Antibody <1.0 NEG AI (<1.0 NEG)
[2020-03-23] MEDS: ONDANSETRON INJ 2 MG/ML 2 ML VIAL IV PRN (13:46)
--- NOTE | 2020-03-23 18:15 | Hospitalist Progress Note ---
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 Present on admission with bladder discomfort and reported fever at home WBC elevated on admission UA showed leukocyte esterase, WBC's, RBC's. Urine culture grew enterococcus faecalis, sensitive to ampicillin. Initially received ceftriaxone and daptomycin. Antibiotic therapy changed to IV ampicillin. WBC continue trending down Completed the course of Ampicillin Clinically stable (2) Chest pain: Chronic intermittent chest pain. Repeat troponin today normal EKG repeat today showed no evidence of ischemic changes Recurrent PE very unlikely with supratherapeutic INR. (3) Chronic diastolic CHF (congestive heart failure): Patient feels that 2000 ml fluid restriction too strict Previous hospitalist teams changed fluid restriction to 3000 ml CXR showed unchanged mild cardiomegaly. Continue furosemide. Continue 2L fluid restriction daily Continue monitor I/O and weight (4) HTN (hypertension): BP stable Continue metoprolol. (5) History of pulmonary embolism: INR 4.4 today Coumadin on hold (6) Elevated INR: History of DVT and PE. Not candidate for DOAC because of BMI. It has been challenging to maintain INR in therapeutic range. History of SDH several months ago. INR 6.2 at time of admission. No apparent bleeding complications and no need to reverse warfarin. INR today = 4.4 today Possible related to IV abx Will hold Coumadin today Continue monitor INR (7) COPD (chronic obstructive pulmonary disease): Pulmonary status stable. (8) DM type 2 (diabetes mellitus, type 2): Continue insulin sliding scale Continue monitor BS (9) Morbid obesity: Wt 204 kg. BMI 60. Counseling on diet and weight loss (10) Therapeutic opioid induced constipation: Continue stools softener for Miralax and senokot (11) Chronic pain: Chronic pain syndrome as extensively documented in previous records. Review of PDMP reveals multiple prescriptions for analgesics by multiple providers at multiple pharmacies. Seen by pain clinics over the years, but has not been able to maintain a long- term relationship with any. Discussed with pt about the potential risks of narcotic analgesics. Initially ordered oxycodone IR 5 mg q 4 hrs PRN. Neuro on board and recommended to increased gabapentin to 800mg q8h and Oxycodone changed to 10mg q6h prn, will plan to change to 5mg q6h He understands that our service will not be able to provide maintenance Rx for narcotics at time of discharge. (12) Neuropathy: Chronic pain syndrome as extensively documented in previous records. Review of PDMP reveals multiple prescriptions for analgesics by multiple providers at multiple pharmacies. Seen by pain clinics over the years, but has not been able to maintain a long- term relationship with any. Discussed with pt about the potential risks of narcotic analgesics. Initially ordered oxycodone IR 5 mg q 4 hrs PRN. Oxycodone changed to q6h PRN Neuro on board and recommended to increased gabapentin to 800mg q8h and Duloxetine to 90mg daily Pt is asking for narcotic script on discharge, even after mentioning to him that we will not give any script for narcotic on discharge Case discussed with Neuro Dr. Dunham that recommended to decrease the Duloxetine 60mg yesterday Continue Duloxetine 60mg daily Follow up with neurology outpatient (13) COVID-19 ruled out: Reports fever, cough, dysgeusia at home. COVID-19 PCR was negative in December. No sick contacts. SARS-CoV-2 negative during hospital course He still believes that he has COVID 19 because he lost his taste bud and smell sensation COVID-19 just to reassure him and his partner pending (14) Abdominal pain: Patient complains of right-sided abdominal pain. He is worried about his gallbladder, but exam not consistent. However, is at risk for rectus sheath hematoma from elevated INR. CT abd/pelvis negative for acute processes. (15) DVT prophylaxis: Continue warfarin. INR 2.2 today Shakiness Involuntary movement CT head showed no acute intracranial abnormality EEG showed no evidence of seizure Case discussed with neurology that recommended to change Duloxetine back to 60mg Follow up with Neurology outpatient Fall precaution (16) Discharge planning issues: Anticipated discharge to home. Internal Medicine follow-up with Dr. Askew. Admission and Anticipated Discharge Date Admission Date: March 15, 2020 Subjective Pt was seen and examined Lying in bed with no distress Pt said that he had another shaking episodes last night He continues to ask for more pain medication He wants a script for narcotic on discharge He said that he does not have a ride to go home tonight, but will get a ride in the morning Currently denies any chest pain, palpitation, dizziness and SOB Physical Exam Physical Exam: General- No acute distress Head- atraumatic Eyes- PERRL, EOMI, ENT- oropharynx clear Neck- supple, no JVD Lungs- + rhonchi Heart- regular rhythm; no murmur Abdomen- normal bowel sounds, soft, nontender Extremities- no calf tenderness, +edema Neuro- alert, oriented x 3; PERRL, EOMI; no facial palsy; no dysarthria Skin- warm & dry Results & Data Results & Data ([facility]) Vital Signs (Past 12 Hours) Vital Signs Temp Pulse Resp BP Pulse Ox 03/23/20 15:41 36.9 C 81 17 112/65 92 03/23/20 09:37 77 104/70 91 03/23/20 07:42 36.8 C 72 16 119/74 93 (1) COPD (chronic obstructive pulmonary disease) COPD type: unspecified COPD Qualified Code(s): J44.9 - Chronic obstructive pulmonary disease, unspecified (2) Chest pain Chest pain type: unspecified Qualified Code(s): R07.9 - Chest pain, unspecified (3) HTN (hypertension) Hypertension type: essential hypertension Qualified Code(s): I10 - Essential (primary) hypertension
[2020-03-23] MEDS ORDERED: ACETAMINOPHEN 1,000 MG/100 ML VIAL IV ONE (19:30)
[2020-03-23] MEDS: LORazepam 0.5 MG TAB PO PRN (19:48)
--- NOTE | 2020-03-23 20:15 | Communication Note ---
Date of Service: March 23, 2020 Patient still complaining of unwitnessed seizure-like episodes. Shaking left pointer finger as per RN. One-to-one observation for now after discussion with AM provider. Continue seizure precautions. ADDENDUM : Patient refusing one-to-one observation as per RN.
[2020-03-23] MEDS: AMITRIPTYLINE HCL 50 MG TAB PO SCH (21:09)
[2020-03-24] MEDS: OXYCODONE HCL IR 5 MG TAB (IMMEDIATE RELEASE) PO PRN ×4 (04:34→23:55)
[2020-03-24 06:47] LABS: INR 2.8 (0.9-1.1); Prothrombin Time 27.5 Seconds (9.0-12.0)
[2020-03-24] MEDS: ALBUTEROL HFA 8 GM INHALER INH SCH ×4 (07:33→19:45)
[2020-03-24] MEDS: IPRATROPIUM BROMIDE HFA INHALER INH SCH ×4 (07:33→19:45)
[2020-03-24] MEDS: SUCRALFATE 1 GM TAB PO SCH ×4 (09:13→20:47)
[2020-03-24] MEDS: INSULIN ASPART 100 UNITS/ML 3 ML PEN SC SCH ×4 (09:14→21:01)
[2020-03-24] MEDS: FLUTICASONE/VILANTEROL 200/25MCG 14 PUFFS/INHALER INH SCH (09:15)
[2020-03-24] MEDS: SPIRONOLACTONE 25 MG TAB PO SCH (09:15)
[2020-03-24] MEDS: DULOXETINE HCL 60 MG CAP PO SCH (09:16)
[2020-03-24] MEDS: TAMSULOSIN HCL 0.4 MG CAP PO SCH (09:17)
[2020-03-24] MEDS: UMECLIDINIUM BROMIDE 62.5MCG/BLISTER 7 PUFFS/INHALER INH SCH (09:17)
[2020-03-24] MEDS: ISOSORBIDE MONO EXTENDED REL 30 MG TABCR PO SCH (09:17)
[2020-03-24] MEDS: FOLIC ACID 1 MG TAB PO SCH (09:17)
[2020-03-24] MEDS: MAGNESIUM OXIDE 400 MG TAB PO SCH (09:18)
[2020-03-24] MEDS: POTASSIUM CHLORIDE 20 MEQ TABCR PO SCH ×2 (09:18→20:49)
[2020-03-24] MEDS: GABAPENTIN 400 MG CAP PO SCH ×3 (09:18→20:50)
[2020-03-24] MEDS: ATORVASTATIN 40 MG TAB PO SCH (09:18)
[2020-03-24] MEDS: POLYETHYLENE (MIRALAX) 17 GM PACK PO SCH ×2 (09:18→20:50)
[2020-03-24] MEDS: FUROSEMIDE 40 MG TAB PO SCH ×2 (09:18→20:50)
[2020-03-24] MEDS: METOPROLOL SUCC 50MG EXT REL TAB PO SCH ×2 (09:19→20:51)
[2020-03-24] MEDS: FINASTERIDE 5 MG TAB PO SCH (09:19)
[2020-03-24] MEDS: PANTOprazole 40 MG TAB PO SCH ×2 (09:19→20:51)
[2020-03-24] MEDS: SENNA 8.6 MG TAB PO SCH ×2 (09:19→20:51)
[2020-03-24] MEDS: DOCUSATE SODIUM 100 MG CAP PO SCH ×2 (09:19→20:50)
[2020-03-24] MEDS: CYCLOBENZAPRINE HCL 10 MG TAB PO SCH ×2 (09:26→20:56)
--- NOTE | 2020-03-24 13:10 | Hospitalist Progress Note ---
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 Present on admission with bladder discomfort and reported fever at home WBC elevated on admission UA showed leukocyte esterase, WBC's, RBC's. Urine culture grew enterococcus faecalis, sensitive to ampicillin. Initially received ceftriaxone and daptomycin. Antibiotic therapy changed to IV ampicillin. WBC continue trending down Completed the course of Ampicillin Clinically stable (2) Chest pain: Chronic intermittent chest pain. Repeat troponin today normal Repeat EKG showed no evidence of ischemic changes Recurrent PE very unlikely with supratherapeutic INR. (3) Chronic diastolic CHF (congestive heart failure): Patient feels that 2000 ml fluid restriction too strict Previous hospitalist teams changed fluid restriction to 3000 ml CXR showed unchanged mild cardiomegaly. Continue furosemide. Continue 2L fluid restriction daily Continue monitor I/O and weight Advised pt to follow a low salt intake (4) HTN (hypertension): BP stable Continue metoprolol. (5) History of pulmonary embolism: INR 4.4 today Coumadin on hold (6) Elevated INR: History of DVT and PE. Not candidate for DOAC because of BMI. It has been challenging to maintain INR in therapeutic range. History of SDH several months ago. INR 6.2 at time of admission. No apparent bleeding complications and no need to reverse warfarin. INR today = 2.8 today Possible related to IV abx Coumadin resume today Continue monitor INR Follow up with the coumadin clinic (7) COPD (chronic obstructive pulmonary disease): Pulmonary status stable. (8) DM type 2 (diabetes mellitus, type 2): Continue insulin sliding scale Continue monitor BS (9) Morbid obesity: Wt 204 kg. BMI 60. Counseling on diet and weight loss (10) Therapeutic opioid induced constipation: Continue stools softener for Miralax and senokot (11) Chronic pain: (12) Neuropathy: Chronic pain syndrome as extensively documented in previous records. Review of PDMP reveals multiple prescriptions for analgesics by multiple providers at multiple pharmacies. Seen by pain clinics over the years, but has not been able to maintain a long- term relationship with any. Discussed with pt about the potential risks of narcotic analgesics. Initially ordered oxycodone IR 5 mg q 4 hrs PRN. Oxycodone changed to q6h PRN Neuro on board and recommended to increased gabapentin to 800mg q8h and Duloxetine to 90mg daily Pt is asking for narcotic script on discharge, even after mentioning to him that we will not give any script for narcotic on discharge Case discussed with Neuro Dr. Dunham that recommended to decrease the Duloxetine 60mg yesterday Continue Duloxetine 60mg daily Follow up with neurology outpatient in 1 week (13) COVID-19 ruled out: Reports fever, cough, dysgeusia at home. COVID-19 PCR was negative in December. No sick contacts. SARS-CoV-2 negative during hospital course He still believes that he has COVID 19 because he lost his taste bud and smell sensation COVID-19 x2 negative during hospital admission (14) Abdominal pain: Patient complains of right-sided abdominal pain. He is worried about his gallbladder, but exam not consistent. However, is at risk for rectus sheath hematoma from elevated INR. CT abd/pelvis negative for acute processes. Shakiness Involuntary movement seems to be chronic as per patient CT head showed no acute intracranial abnormality EEG showed no evidence of seizure Case discussed with neurology that recommended to change Duloxetine back to 60mg Follow up with Neurology outpatient Pt refused to be on one to one sitter that staff can observe and document the events Fall precaution (15) DVT prophylaxis: Continue warfarin. INR 2.8 today (16) Discharge planning issues: Anticipated discharge to home today Internal Medicine follow-up with Dr. Askew. Follow up with neurology Admission and Anticipated Discharge Date Admission Date: March 15, 2020 Subjective Pt was seen and examined Lying in bed with no distress Pt said that he continues to have on/off episodes of shakiness Last night he refused to be on one to one observation for a staff to stay in his room that they can observe the event He wants his door to be closed It seems like the shakiness occurs mostly when he knows that he is getting ready to discharge After getting permission from Mr Milner, I spoke to his significant order in length and answered all her questions His significant other said that he will come get him in the morning She said that don't put him on one to one since he is planning to come home tomorrow Currently denies any chest pain, palpitation, dizziness and fever Physical Exam Physical Exam: General- No acute distress Head- atraumatic Eyes- PERRL, EOMI, ENT- oropharynx clear Neck- supple, no JVD Lungs- + rhonchi Heart- regular rhythm; no murmur Abdomen- normal bowel sounds, soft, nontender Extremities- no calf tenderness, +edema Neuro- alert, oriented x 3; PERRL, EOMI; no facial palsy; no dysarthria Skin- warm & dry Results & Data Results & Data ([facility]) Vital Signs (Past 12 Hours) Vital Signs Temp Pulse Resp BP Pulse Ox 03/24/20 07:35 36.8 C 76 16 109/69 90 (1) COPD (chronic obstructive pulmonary disease) COPD type: unspecified COPD Qualified Code(s): J44.9 - Chronic obstructive pulmonary disease, unspecified (2) Chest pain Chest pain type: unspecified Qualified Code(s): R07.9 - Chest pain, unspecified (3) HTN (hypertension) Hypertension type: essential hypertension Qualified Code(s): I10 - Essential (primary) hypertension
[2020-03-24] MEDS: WARFARIN SOD 5 MG TAB PO SCH (16:37)
[2020-03-24] MEDS: AMITRIPTYLINE HCL 50 MG TAB PO SCH (20:48)
[2020-03-24] MEDS: LORazepam 0.5 MG TAB PO PRN (20:56)
[2020-03-25] MEDS: IPRATROPIUM BROMIDE HFA INHALER INH SCH (07:51)
[2020-03-25] MEDS: ALBUTEROL HFA 8 GM INHALER INH SCH (07:51)
[2020-03-25 08:54] LABS: ANA Pattern Nuclear, Speckled; ANA Pattern 2 Nuclear, Homogeneous
[2020-03-25] MEDS: DOCUSATE SODIUM 100 MG CAP PO SCH ×2 (09:11→20:29)
[2020-03-25] MEDS: SENNA 8.6 MG TAB PO SCH ×2 (09:11→20:30)
[2020-03-25] MEDS: POLYETHYLENE (MIRALAX) 17 GM PACK PO SCH ×2 (09:11→20:29)
[2020-03-25] MEDS: SUCRALFATE 1 GM TAB PO SCH ×4 (09:12→20:29)
[2020-03-25] MEDS: INSULIN ASPART 100 UNITS/ML 3 ML PEN SC SCH ×4 (09:12→20:25)
[2020-03-25] MEDS: SPIRONOLACTONE 25 MG TAB PO SCH (09:13)
[2020-03-25] MEDS: FLUTICASONE/VILANTEROL 200/25MCG 14 PUFFS/INHALER INH SCH (09:13)
[2020-03-25] MEDS: TAMSULOSIN HCL 0.4 MG CAP PO SCH (09:14)
[2020-03-25] MEDS: FOLIC ACID 1 MG TAB PO SCH (09:14)
[2020-03-25] MEDS: ISOSORBIDE MONO EXTENDED REL 30 MG TABCR PO SCH (09:14)
[2020-03-25] MEDS: DULOXETINE HCL 60 MG CAP PO SCH (09:14)
[2020-03-25] MEDS: MAGNESIUM OXIDE 400 MG TAB PO SCH (09:15)
[2020-03-25] MEDS: ATORVASTATIN 40 MG TAB PO SCH (09:15)
[2020-03-25] MEDS: POTASSIUM CHLORIDE 20 MEQ TABCR PO SCH ×2 (09:15→20:29)
[2020-03-25] MEDS: FUROSEMIDE 40 MG TAB PO SCH ×2 (09:15→20:29)
[2020-03-25] MEDS: PANTOprazole 40 MG TAB PO SCH ×2 (09:16→20:29)
[2020-03-25] MEDS: GABAPENTIN 400 MG CAP PO SCH ×3 (09:16→20:29)
[2020-03-25] MEDS: FINASTERIDE 5 MG TAB PO SCH (09:16)
[2020-03-25] MEDS: METOPROLOL SUCC 50MG EXT REL TAB PO SCH ×2 (09:17→20:29)
[2020-03-25] MEDS: CYCLOBENZAPRINE HCL 10 MG TAB PO SCH ×2 (09:22→20:32)
[2020-03-25] MEDS: OXYCODONE HCL IR 5 MG TAB (IMMEDIATE RELEASE) PO PRN ×3 (09:26→21:26)
[2020-03-25] MEDS: UMECLIDINIUM BROMIDE 62.5MCG/BLISTER 7 PUFFS/INHALER INH SCH (10:32)
[2020-03-25] MEDS: LORazepam 0.5 MG TAB PO PRN ×2 (13:05→20:32)
[2020-03-25] MEDS: ONDANSETRON INJ 2 MG/ML 2 ML VIAL IV PRN (14:37)
[2020-03-25] MEDS: WARFARIN SOD 5 MG TAB PO SCH (15:38)
[2020-03-25] MEDS ORDERED: FUROSEMIDE 20 MG in SYRINGE 0 ML IV ONE (17:30)
--- NOTE | 2020-03-25 17:32 | Hospitalist Progress Note ---
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 Present on admission with bladder discomfort and reported fever at home WBC elevated on admission UA showed leukocyte esterase, WBC's, RBC's. Urine culture grew enterococcus faecalis, sensitive to ampicillin. Initially received ceftriaxone and daptomycin. Antibiotic therapy changed to IV ampicillin. WBC continue trending down Completed the course of Ampicillin Clinically stable (2) Chest pain: Chronic intermittent chest pain. Repeat troponin today normal Repeat EKG showed no evidence of ischemic changes Recurrent PE very unlikely with supratherapeutic INR. Currently no chest pain (3) Chronic diastolic CHF (congestive heart failure): Patient feels that 2000 ml fluid restriction too strict Previous hospitalist teams changed fluid restriction to 3000 ml CXR showed unchanged mild cardiomegaly. Continue furosemide. Continue 2L fluid restriction daily Continue monitor I/O and weight Advised pt to follow a low salt intake Not compliant with the 2L fluid restriction Will give him an extra 20mg x1 IV lasix today since pt does not want to flow the fluid restriction Currently no sign of fluid overload (4) HTN (hypertension): BP stable Continue metoprolol. (5) History of pulmonary embolism: INR 2.8 on 03/24/20 Coumadin 5mg daily Follow up with the coag clinic (6) Elevated INR: History of DVT and PE. Not candidate for DOAC because of BMI. It has been challenging to maintain INR in therapeutic range. History of SDH several months ago. INR 6.2 at time of admission. No apparent bleeding complications and no need to reverse warfarin. INR today = 2.8 on 03/24/20 Possible related to IV abx Continue warfarin daily Follow up with the coumadin clinic to monitor PT/INR (7) COPD (chronic obstructive pulmonary disease): Pulmonary status stable. (8) DM type 2 (diabetes mellitus, type 2): Continue insulin sliding scale Continue monitor BS (9) Morbid obesity: Wt 204 kg. BMI 60. Counseling on diet and weight loss (10) Therapeutic opioid induced constipation: Continue stools softener for Miralax and senokot (11) Chronic pain: (12) Neuropathy: Chronic pain syndrome as extensively documented in previous records. Review of PDMP reveals multiple prescriptions for analgesics by multiple providers at multiple pharmacies. Seen by pain clinics over the years, but has not been able to maintain a long- term relationship with any. Discussed with pt about the potential risks of narcotic analgesics. Initially ordered oxycodone IR 5 mg q 4 hrs PRN. Oxycodone changed to q6h PRN Neuro on board and recommended to increased gabapentin to 800mg q8h and Duloxetine to 90mg daily Pt is asking for narcotic script on discharge, even after mentioning to him that we will not give any script for narcotic on discharge Case discussed with Neuro Dr. Dunham that recommended to decrease the Duloxetine 60mg yesterday Continue Duloxetine 60mg daily Follow up with neurology outpatient in 1 week (13) COVID-19 ruled out: Reports fever, cough, dysgeusia at home. COVID-19 PCR was negative in December. No sick contacts. SARS-CoV-2 negative during hospital course He still believes that he has COVID 19 because he lost his taste bud and smell sensation COVID-19 x2 negative during hospital admission (14) Abdominal pain: Patient complains of right-sided abdominal pain. He is worried about his gallbladder, but exam not consistent. However, is at risk for rectus sheath hematoma from elevated INR. CT abd/pelvis negative for acute processes. Shakiness Involuntary movement seems to be chronic as per patient CT head showed no acute intracranial abnormality EEG showed no evidence of seizure Discussed with patient that it might be contributed to narcotic Pt said that he has been having the involuntary jerking movement longtime ago before starting on narcotic Case discussed with neurology that recommended to change Duloxetine back to 60mg Follow up with Neurology outpatient in week Pt refused to be on one to one sitter to observe and document the events Fall precaution (15) DVT prophylaxis: Continue warfarin. INR 2.8 on 03/25/20 (16) Discharge planning issues: Discharge home Internal Medicine follow-up with Dr. Askew on 03/27 on 11:20 AM Follow up with neurology in 1 week Admission and Anticipated Discharge Date Admission Date: March 15, 2020 Subjective Pt was seen and examined When I entered in his room, he was lying in bed comfortable sleeping Pt said that he had another shaking episodes around 3AM He continues to refuse the idea to allow one to one at his bedside to monitor when he has an episodes He said that the shaking does not related with the pain med because he said that the shakiness was starting longtime ago before starting on narcotic He is not very happy to follow the 2L fluid restriction daily He said that he is planning to leave tomorrow at noon Does not complaint of any chest pain, palpitation and SOB Physical Exam Physical Exam: General- No acute distress Head- atraumatic Eyes- PERRL, EOMI, ENT- oropharynx clear Neck- supple, no JVD Lungs- + rhonchi Heart- regular rhythm; no murmur Abdomen- normal bowel sounds, soft, nontender Extremities- no calf tenderness, +edema Neuro- alert, oriented x 3; PERRL, EOMI; no facial palsy; no dysarthria Skin- warm & dry Results & Data Results & Data ([facility]) Vital Signs (Past 12 Hours) Vital Signs Temp Pulse Pulse Resp BP BP Pulse Ox 03/25/20 15:31 36.8 C 73 17 110/70 90 03/25/20 07:10 36.5 C 56 L 18 112/70 96 (1) COPD (chronic obstructive pulmonary disease) COPD type: unspecified COPD Qualified Code(s): J44.9 - Chronic obstructive pulmonary disease, unspecified (2) Chest pain Chest pain type: unspecified Qualified Code(s): R07.9 - Chest pain, unspecified (3) HTN (hypertension) Hypertension type: essential hypertension Qualified Code(s): I10 - Essential (primary) hypertension
[2020-03-25] MEDS: AMITRIPTYLINE HCL 50 MG TAB PO SCH (20:29)
[2020-03-26 01:28] LABS: Basophils # (auto) 0.05 K/uL (0-0.2); Basophils % (auto) 0.4 %; Eosinophils % (auto) 4.4 %; Hemoglobin 11.6 g/dL (14.0-18.0); Immature Granulocytes # (auto) 0.05 K/uL (0.00-0.02); Immature Granulocytes % (auto) 0.4 %; Lymphocytes # (auto) 2.74 K/uL (1.2-3.4); Lymphocytes % (auto) 19.9 %; Mean Corpuscular Hemoglobin 23.1 pg (25-34); Mean Corpuscular Hgb Conc 30.5 g/dL (32-36); Mean Corpuscular Volume 75.5 fL (80-100); Mean Platelet Volume 9.8 fL (7.4-10.4); Monocytes % (auto) 5.8 %; Neutrophils # (auto) 9.54 K/uL (1.4-6.5); Neutrophils % (auto) 69.1 %; Platelet Count 304 K/uL (130-400); RDW Coefficient of Variation 19.3 % (11.5-14.5); RDW Standard Deviation 52.7 fL (36.4-46.3); Red Blood Count 5.03 M/uL (4.7-6.1); White Blood Count 13.78 K/uL (4.8-10.8)
[2020-03-26 01:45] LABS: BUN Creatinine Ratio 17.9 (10-20); Calcium 8.8 mg/dl (8.5-10.1); Creatinine Clr Calc Pharmacy 137.9 ml/min; Est GFR (African American) 83.5; Magnesium 2.1 mg/dl (1.8-2.4); Potassium 4.3 mmol/L (3.5-5.1); Prothrombin Time 20.6 Seconds (9.0-12.0)
[2020-03-26] MEDS: OXYCODONE HCL IR 5 MG TAB (IMMEDIATE RELEASE) PO PRN ×2 (03:15→09:15)
[2020-03-26] MEDS: SPIRONOLACTONE 25 MG TAB PO SCH (08:37)
[2020-03-26] MEDS: FINASTERIDE 5 MG TAB PO SCH (08:37)
[2020-03-26] MEDS: FUROSEMIDE 40 MG TAB PO SCH (08:37)
[2020-03-26] MEDS: DULOXETINE HCL 60 MG CAP PO SCH (08:37)
[2020-03-26] MEDS: PANTOprazole 40 MG TAB PO SCH (08:37)
[2020-03-26] MEDS: SUCRALFATE 1 GM TAB PO SCH (08:37)
[2020-03-26] MEDS: TAMSULOSIN HCL 0.4 MG CAP PO SCH (08:37)
[2020-03-26] MEDS: UMECLIDINIUM BROMIDE 62.5MCG/BLISTER 7 PUFFS/INHALER INH SCH (08:38)
[2020-03-26] MEDS: ATORVASTATIN 40 MG TAB PO SCH (08:38)
[2020-03-26] MEDS: SENNA 8.6 MG TAB PO SCH (08:38)
[2020-03-26] MEDS: METOPROLOL SUCC 50MG EXT REL TAB PO SCH (08:38)
[2020-03-26] MEDS: ISOSORBIDE MONO EXTENDED REL 30 MG TABCR PO SCH (08:38)
[2020-03-26] MEDS: FOLIC ACID 1 MG TAB PO SCH (08:38)
[2020-03-26] MEDS: MAGNESIUM OXIDE 400 MG TAB PO SCH (08:38)
[2020-03-26] MEDS: POTASSIUM CHLORIDE 20 MEQ TABCR PO SCH (08:38)
[2020-03-26] MEDS: GABAPENTIN 400 MG CAP PO SCH (08:38)
[2020-03-26] MEDS: FLUTICASONE/VILANTEROL 200/25MCG 14 PUFFS/INHALER INH SCH (08:39)
[2020-03-26] MEDS: INSULIN ASPART 100 UNITS/ML 3 ML PEN SC SCH (08:40)
[2020-03-26] MEDS: CYCLOBENZAPRINE HCL 10 MG TAB PO SCH (08:45)
[2020-03-26] MEDS: DOCUSATE SODIUM 100 MG CAP PO SCH (08:45)
[2020-03-26] MEDS: POLYETHYLENE (MIRALAX) 17 GM PACK PO SCH (08:45)
--- NOTE | 2020-03-26 09:54 | Hospitalist Progress Note ---
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 Present on admission with bladder discomfort and reported fever at home WBC elevated on admission UA showed leukocyte esterase, WBC's, RBC's. Urine culture grew enterococcus faecalis, sensitive to ampicillin. Initially received ceftriaxone and daptomycin. Antibiotic therapy changed to IV ampicillin. WBC continue trending down Completed the course of Ampicillin Clinically stable (2) Chest pain: Chronic intermittent chest pain. Repeat troponin today normal Repeat EKG showed no evidence of ischemic changes Recurrent PE very unlikely with supratherapeutic INR. Currently no chest pain (3) Chronic diastolic CHF (congestive heart failure): Patient feels that 2000 ml fluid restriction too strict Previous hospitalist teams changed fluid restriction to 3000 ml CXR showed unchanged mild cardiomegaly. Continue furosemide. Continue 2L fluid restriction daily Continue monitor I/O and weight Advised pt to follow a low salt intake Not compliant with the 2L fluid restriction Saturated well on RA Currently no sign of fluid overload (4) HTN (hypertension): BP stable Continue metoprolol. (5) History of pulmonary embolism: INR 2 on 03/26/20 Coumadin 5mg daily Follow up with the coag clinic (6) Elevated INR: History of DVT and PE. Not candidate for DOAC because of BMI. It has been challenging to maintain INR in therapeutic range. History of SDH several months ago. INR 6.2 at time of admission. No apparent bleeding complications and no need to reverse warfarin. INR today = 2 on 03/26/20 Possible related to IV abx Continue warfarin daily Follow up with the coumadin clinic to monitor PT/INR (7) COPD (chronic obstructive pulmonary disease): Pulmonary status stable. (8) DM type 2 (diabetes mellitus, type 2): Continue insulin sliding scale Continue monitor BS (9) Morbid obesity: Wt 204 kg. BMI 60. Counseling on diet and weight loss (10) Therapeutic opioid induced constipation: Continue stools softener for Miralax and senokot (11) Chronic pain: (12) Neuropathy: Chronic pain syndrome as extensively documented in previous records. Review of PDMP reveals multiple prescriptions for analgesics by multiple providers at multiple pharmacies. Seen by pain clinics over the years, but has not been able to maintain a long- term relationship with any. Discussed with pt about the potential risks of narcotic analgesics. Initially ordered oxycodone IR 5 mg q 4 hrs PRN. Oxycodone changed to q6h PRN Neuro on board and recommended to increased gabapentin to 800mg q8h and Duloxetine to 90mg daily Pt is asking for narcotic script on discharge, even after mentioning to him that we will not give any script for narcotic on discharge Case discussed with Neuro Dr. Dunham that recommended to decrease the Duloxetine 60mg yesterday Continue Duloxetine 60mg daily Follow up with neurology outpatient in 1 week (13) COVID-19 ruled out: Reports fever, cough, dysgeusia at home. COVID-19 PCR was negative in December. No sick contacts. SARS-CoV-2 negative during hospital course He still believes that he has COVID 19 because he lost his taste bud and smell sensation COVID-19 x2 negative during hospital admission (14) Abdominal pain: Patient complains of right-sided abdominal pain. He is worried about his gallbladder, but exam not consistent. However, is at risk for rectus sheath hematoma from elevated INR. CT abd/pelvis negative for acute processes. Shakiness Involuntary movement seems to be chronic as per patient CT head showed no acute intracranial abnormality EEG showed no evidence of seizure Discussed with patient that it might be contributed to narcotic Pt said that he has been having the involuntary jerking movement longtime ago before starting on narcotic Case discussed with neurology that recommended to change Duloxetine back to 60mg Follow up with Neurology outpatient Case AURELIADaljitpippa on 04/04 @ 3PM Pt refused to be on one to one sitter to observe and document the events Fall precaution (15) DVT prophylaxis: Continue warfarin. INR 2 on 03/25/20 (16) Discharge planning issues: Discharge home Internal Medicine follow-up with Dr. Askew on 03/27 on 11:20 AM Follow up with neurology in 1 week Admission and Anticipated Discharge Date Admission Date: March 15, 2020 Subjective Pt was seen and examined Sitting at the edge of the bed with no distress Pt saturated well on RA He said that his is downstairs and ready to leave Denies any chest pain, palpitation, dizziness and SOB Physical Exam Physical Exam: General- No acute distress Head- atraumatic Eyes- PERRL, EOMI, ENT- oropharynx clear Neck- supple, no JVD Lungs- + rhonchi Heart- regular rhythm; no murmur Abdomen- normal bowel sounds, soft, nontender Extremities- no calf tenderness, +edema Neuro- alert, oriented x 3; PERRL, EOMI; no facial palsy; no dysarthria Skin- warm & dry Results & Data Results & Data ([facility]) Vital Signs (Past 12 Hours) Vital Signs Temp Pulse Resp BP BP Pulse Ox 03/26/20 07:40 36.4 C L 68 18 104/66 96 03/25/20 22:56 36.8 C 76 16 103/64 95 (1) COPD (chronic obstructive pulmonary disease) COPD type: unspecified COPD Qualified Code(s): J44.9 - Chronic obstructive pulmonary disease, unspecified (2) Chest pain Chest pain type: unspecified Qualified Code(s): R07.9 - Chest pain, unspecified (3) HTN (hypertension) Hypertension type: essential hypertension Qualified Code(s): I10 - Essential (primary) hypertension
--- NOTE | 2020-03-26 10:00 | Discharge Summary ---
Date of Service March 26, 2020 Admission HPI Per Admitting Provider Pt is 49 y/o M with PMH DM II, HTN, H/O PE, on Coumadin, diastolic CHF, chronic back pain, COPD, urinary retention with chronic Lloyd, depression, anxiety, history of recurrent hospitalizations for CHF and CP, h/o subdural hematoma, SAH, STEMI, presented to ER with c/o CP this morning and bladder discomfort x 3 days. He states this morning getting out of bed and had left sided chest pain described as dull and non-radiating. No prior treatment. Since in ER reports CP almost resolved and feels similar to his chronic CP however its not "stabbing bad pain like usual". Has chronic SOB with exertion but denies any worsening SOB or orthopnea. Is on supplemental oxygen prn at home however reports has only been requiring it at night. Pt reports taking his diuretics as prescribed and following fluid restrictions. He reports decreased appetite for at least 2 months. Pt states gained 7 pounds over past 2 days and thinks has a little more edema to BLE. States temp of 100F and having bladder discomfort and feeling like his Lloyd is not completely draining. Noted red tinged urine in Lloyd bag. Pt ambulating with use of cane and reports sometimes does not ambulate much at all. Denies recent travel, sick contacts,or exposure to COVID 19. Denies N/V/D/C, BURNETTE, dizziness, syncope, vision changes, neck pain, sore throat, choking, otalgia, rhinorrhea, cough paresthesias. Admission Exam Per Admitting Provider General: no distress, obese Head: normocephalic, atraumatic Eyes: PERRL, EOM's intact, conjunctiva non-injected, anicteric ENT: normal inspection external ears, nose, mucous membranes moist Neck: supple, trachea midline, non-tender Lungs: no respiratory distress, faint expiratory wheeze noted at bases bilaterally with no rhonchi/rales CV: RRR, no murmur, 1-2+ pretibial edema Abd: normal BS, soft, protuberant, tender over suprapubic region Ext: no cyanosis, no calf tenderness Neuro: A&O x 3, no focal deficits noted, normal affect Skin: warm, dry Principal Diagnosis Catheter-associated urinary tract infection: Chest pain: Chronic diastolic CHF (congestive heart failure): HTN (hypertension): History of pulmonary embolism: Elevated INR: COPD (chronic obstructive pulmonary disease): DM type 2 (diabetes mellitus, type 2): Morbid obesity: Therapeutic opioid induced constipation: Chronic pain: Neuropathy: Abdominal pain: Discharge Exam General- No acute distress Head- atraumatic Eyes- PERRL, EOMI, ENT- oropharynx clear Neck- supple, no JVD Lungs- + rhonchi Heart- regular rhythm; no murmur Abdomen- normal bowel sounds, soft, nontender Extremities- no calf tenderness, +edema Neuro- alert, oriented x 3; PERRL, EOMI; no facial palsy; no dysarthria Skin- warm & dry Discharge Data Allergies Allergy/AdvReac Type Severity Reaction Status Date / Time fentanyl Allergy Intermediate RASH/HIVES/SKIN Verified 03/15/20 14:25 REDNESS ibuprofen Allergy Nausea Unverified 03/15/20 14:25 naloxone AdvReac Severe extremely Unverified 03/15/20 14:25 sick acetaminophen AdvReac Intermediate Unknown Verified 03/15/20 14:25 valproic acid AdvReac Intermediate PANCREATITS Verified 03/15/20 14:25 Consultations 03/15/20 16:09 ED Decision to Admit Stat 03/15/20 16:24 Consult Case Management - Discharge Planning Routine 03/19/20 03:15 Consult Neurology Routine Ordered Studies 03/17/20 10:14 CT abd pelvis wo con Urgent 03/21/20 22:09 CT head/brain wo con Urgent XR chest 1V portable CLINICAL HISTORY: Atypical chest pain COMPARISON STUDY: 02/16/2020 FINDINGS: The heart is mildly enlarged. There is elevation of the interstitium consistent with mild pulmonary vascular congestion. A small right pleural effusion is again suspected. An opacity at the level the left cardiophrenic angle likely secondary to a fat pad.[There is no lobar consolidation IMPRESSION: 1. Cardiomegaly and suspected mild pulmonary vascular congestion. Small right pleural effusion. ACT 112: Negative or not required by law. Electronically signed by: Luis Castro M.D. 03/15/2020 2:34 PM Dictated: 03/15/20 1433 Transcribed: 03/15/[address] WITHOUT CONTRAST CT DOSE: 2275.28 mGy.cm HISTORY: right-sided abd pain, r/o hematoma TECHNIQUE: Multiaxial CT images of the abdomen and pelvis were performed without contrast. A dose lowering technique was utilized adhering to the principles of ALARA. COMPARISON STUDY: Abdomen and pelvis CT 02/17/2020. FINDINGS: Linear density at the lung bases favor subsegmental atelectasis or scarring. No pneumoperitoneum. No pneumatosis. No suspicious lytic are blastic osseous lesions. The left-sided the abdomen is partially obscured by the gantry artifact. Hepatic steatosis. The gallbladder is decompressed. The unenhanced pancreas, spleen, and adrenal glands unremarkable. Stable 4 mm stone within the right kidney. Normal left kidney. No ureteral stones. No hydronephrosis. The bladder is decompressed by Lloyd catheter. Gas within the bladder lumen is likely due to the prior catheterization. No pelvic free fluid. Suboptimal evaluation for bowel pathology due to the lack of intravenous and oral contrast. However, there is no definite bowel wall thickening or obstruction. The left side the colon is not well visualized due to the gantry artifact. Prior cholecystectomy. Stable prominent periportal lymph nodes. No retroperitoneal lymphadenopathy. Normal caliber abdominal aorta. Mild bladder wall thickening. This could be due to underdistention. IMPRESSION: 1. No definite bowel wall thickening or obstruction. 2. Stable right-sided nephrolithiasis. No ureteral stones. No hydronephrosis. 3. Bladder wall thickening which could be due to decompression. Recommend correlation with urinalysis to exclude a cystitis. 4. Hepatic steatosis. ACT 112: Negative or not required by law. Electronically signed by: Vidal Keller M.D. 03/17/2020 11:25 AM Dictated: 03/17/20 1119 Transcribed: 03/17/20 1119 XR chest 1V portable CLINICAL HISTORY: CHF, cough dyspnea COMPARISON STUDY: 03/15/2020 FINDINGS: Moderate stable cardiomegaly. Unchanged parenchymal infiltrate left base mild prominence of the pulmonary vasculature. Pulmonary apices are clear. IMPRESSION: 1. Unchanged mild cardiomegaly. 2. Unchanged left basilar infiltrate possibly combined with a small left effusion. ACT 112: Negative or not required by law. The above report was generated using voice recognition software. It may contain grammatical, syntax or spelling errors. Electronically signed by: Owen Flowers M.D. 03/21/2020 8:38 AM Dictated: 03/21/20 0836 Transcribed: 03/21/2036 CT head/brain wo con CT DOSE: 687.98 mGy.cm HISTORY: Mental status change burnette TECHNIQUE: Multiaxial CT images of the head were performed without the use of intravenous contrast. A dose lowering technique was utilized adhering to the principles of ALARA. Comparison: None. Findings: The paranasal sinuses and mastoid air cells are clear. The calvarium and skull base are intact. The ventricles and sulci are within normal limits. There is no mass, hematoma, midline shift, or acute infarct. Impression: No acute intracranial abnormality. ACT 112: Negative or not required by law. The above report was generated using voice recognition software. It may contain grammatical, syntax or spelling errors. Electronically signed by: Owen Flowers M.D. 03/22/2020 6:36 AM Dictated: 03/22/20634 Transcribed: 03/22/20634 Hospital Course (1) Catheter-associated urinary tract infection: Chronic indwelling Lloyd catheter for urinary retention. Present on admission with bladder discomfort and reported fever at home WBC elevated on admission UA showed leukocyte esterase, WBC's, RBC's. Urine culture grew enterococcus faecalis, sensitive to ampicillin. Initially received ceftriaxone and daptomycin. Antibiotic therapy changed to IV ampicillin. WBC continue trending down Completed the course of Ampicillin Clinically stable (2) Chest pain: Chronic intermittent chest pain. Repeat troponin today normal Repeat EKG showed no evidence of ischemic changes Recurrent PE very unlikely with supratherapeutic INR. Currently no chest pain (3) Chronic diastolic CHF (congestive heart failure): Patient feels that 2000 ml fluid restriction too strict Previous hospitalist teams changed fluid restriction to 3000 ml CXR showed unchanged mild cardiomegaly. Continue furosemide. Continue 2L fluid restriction daily Continue monitor I/O and weight Advised pt to follow a low salt intake Not compliant with the 2L fluid restriction Saturated well on RA Currently no sign of fluid overload (4) HTN (hypertension): BP stable Continue metoprolol. (5) History of pulmonary embolism: INR 2 on 03/26/20 Coumadin 5mg daily Follow up with the coag clinic (6) Elevated INR: History of DVT and PE. Not candidate for DOAC because of BMI. It has been challenging to maintain INR in therapeutic range. History of SDH several months ago. INR 6.2 at time of admission. No apparent bleeding complications and no need to reverse warfarin. INR today = 2 on 03/26/20 Possible related to IV abx Continue warfarin daily Follow up with the coumadin clinic to monitor PT/INR (7) COPD (chronic obstructive pulmonary disease): Pulmonary status stable. (8) DM type 2 (diabetes mellitus, type 2): Continue insulin sliding scale Continue monitor BS (9) Morbid obesity: Wt 204 kg. BMI 60. Counseling on diet and weight loss (10) Therapeutic opioid induced constipation: Continue stools softener for Miralax and senokot (11) Chronic pain: (12) Neuropathy: Chronic pain syndrome as extensively documented in previous records. Review of PDMP reveals multiple prescriptions for analgesics by multiple providers at multiple pharmacies. Seen by pain clinics over the years, but has not been able to maintain a long- term relationship with any. Discussed with pt about the potential risks of narcotic analgesics. Initially ordered oxycodone IR 5 mg q 4 hrs PRN. Oxycodone changed to q6h PRN Neuro on board and recommended to increased gabapentin to 800mg q8h and Duloxetine to 90mg daily Pt is asking for narcotic script on discharge, even after mentioning to him that we will not give any script for narcotic on discharge Case discussed with Neuro Dr. Dunham that recommended to decrease the Duloxetine 60mg yesterday Continue Duloxetine 60mg daily Follow up with neurology outpatient in 1 week (13) COVID-19 ruled out: Reports fever, cough, dysgeusia at home. COVID-19 PCR was negative in December. No sick contacts. SARS-CoV-2 negative during hospital course He still believes that he has COVID 19 because he lost his taste bud and smell sensation COVID-19 x2 negative during hospital admission (14) Abdominal pain: Patient complains of right-sided abdominal pain. He is worried about his gallbladder, but exam not consistent. However, is at risk for rectus sheath hematoma from elevated INR. CT abd/pelvis negative for acute processes. Shakiness Involuntary movement seems to be chronic as per patient CT head showed no acute intracranial abnormality EEG showed no evidence of seizure Discussed with patient that it might be contributed to narcotic Pt said that he has been having the involuntary jerking movement longtime ago before starting on narcotic Case discussed with neurology that recommended to change Duloxetine back to 60mg Follow up with Neurology outpatient Case Fidelia on 04/04 @ 3PM Pt refused to be on one to one sitter to observe and document the events Fall precaution (15) DVT prophylaxis: Continue warfarin. INR 2 on 03/25/20 (16) Discharge planning issues: Discharge home Internal Medicine follow-up with Dr. Askew on 03/27 on 11:20 AM Follow up with neurology in 1 week Total Time Total Time Spent Total Time Spent (In Minutes): 35 minutes Total Time Includes: Examination of the Patient, Discharge Planning, Medication Reconciliation, Communication With Other Providers and Other Discharge Plan Discharge Items Patient Disposition: Home - Home Health Services Reason For Visit: CHEST PAIN Discharge Diagnosis: Catheter-associated urinary tract infection: Chest pain: Chronic diastolic CHF (congestive heart failure): HTN (hypertension): History of pulmonary embolism: Elevated INR: COPD (chronic obstructive pulmonary disease): DM type 2 (diabetes mellitus, type 2): Morbid obesity: Therapeutic opioid induced constipation: Chronic pain: Neuropathy: Abdominal pain: Activity: Resume your previous activity Non-emergency contact: Primary Care Provider and Neurologist Call non-emergency contact if: you have any medication questions and your temperature is above 101 Follow-up/Referrals: Aarti Chapman PA-C [Physician Belt Maker Helper] - 04/04/20 3:00 pm (You have an appointment with Aarti Chapman-Neurology on 04/04/2020 at 3:00pm. Please arrive 15 minutes early. If for any reason you can not keep this appoinment please call: [phone]. [address] [place] [address]) Roberto Askew MD [Primary Care Provider] - 03/27/20 11:20 am (03/27/2020 11:20 AM Provider Harsha Whyte DO Department General Internal Medicine [facility] ) Diet: Carb Consistent or DM2 and Heart Healthy Addtl Attending Provider Instructions: Follow up with primary care provider on 03/27/20 @ 11:20 AM Follow up with neurology Aarti Chapman PA-C on 04/04/20 @ 3 PM Follow up with the coumadin clinic to monitor your PT/INR (INR 2 today) Check CBC in 1 week to monitor leukocytosis Continue physical and occupational therapy Continue 2L fluid restriction daily Follow a low sodium diet Continue oxygen supplement at night and as needed Ok to discharge home with the Lloyd catheter Please do not drive or perform any machine while taking oxycodone Please hold next dose of narcotic if you become drowsy and lethargy Fall precaution Coronavirus disease 2019 (COVID-19) is a virus that causes a respiratory illness. It is caused by a coronavirus called 2019 novel coronavirus (2019- nCoV). There are many types of coronavirus. Coronaviruses are a very common cause of bronchitis. They may sometimes cause lung infection(pneumonia). Symptoms can range from mild to severe respiratory illness. These viruses are also foundin some animals. COVID-19 was first found in people in [facility], in late 2018. In 2020, several cases of COVID-19 have been confirmed in the [place] Public health officials are working to find the source. How the virus spreads is not yet fully known. It may be spread through droplets of fluid that a person coughs or sneezes into the air. It may be spread if you touch a surface with virus on it, such as a handle or object, a nd then touch your mouth. What are the symptoms of COVID-19? Some people have no symptoms or mild symptoms. Symptoms may appear 2 to 14 days after contact with the virus. Symptoms can include: Fever Coughing Trouble breathing What are possible complications from COVID-19? In many cases, this virus can cause infection (pneumonia) in both lungs. In some cases, this can cause . How is COVID-19 diagnosed? Your healthcare provider will ask about your symptoms. He or she will also ask about your recent travel and contact with sick people. Testing for the virus is only done through the CDC. If yourhealthcare provider thinks you may have COVID- 19, he or she will work with your local health department and the CDC on testing. Follow all instructions from your healthcare provider. COVID-19 is diagnosed by: Nasal and throat swab. A cotton-tipped swab is wiped inside your nose or throat. This is done to check for viruses in your nasal mucus. Sputum culture. A small sample of mucus coughed from your lungs (sputum) is collected if you have a cough. It is checked for the virus. How is COVID-19 treated? There is currently no medicine to treat the virus. Treatment is done to help your body while it fights the virus. This is known as supportive care. Supportive care may include: Pain medicine. These include acetaminophen and ibuprofen. They are used to help ease pain and reduce fever. Bed rest. This helps your body fight the illness. For severe illness, you may need to stay in the hospital. Care during severe illness may include: IV (intravenous) fluids.These are given through a vein to help keep your body hydrated. Oxygen. Supplemental oxygen or ventilation with a breathing machine (ventilator) may be given. This is done to keep enough oxygen in your body. Are you at risk for COVID-19? If youve been to a place where people have been sick with this virus, you are at risk for infection. You are at risk if you: Recently traveled to an affected area Had contact with a sick person who recently traveled to this area Had contact with a person who was diagnosed with COVID-19 How can COVID-19 be prevented? There is no vaccine yet. The best prevention is to not have contact with the virus. The CDC advises that people should not travel to areas where there are COVID-19 outbreaks right now for any reason that is not urgent. To help prevent spreading the infection, wash your hands often, or use an alcohol-basedhand certified professional controller. If you are in an area with COVID-19: Wash your hands often. Or use an alcohol-based hand certified professional controller often. Only touch your eyes, nose, or mouth with clean hands. Dont have contact with people who are sick. Follow local instructions about being in public. For example, you may be told to not use public transport for a period of time. Stay away from markets that have live or animals. Wash your hands after touching any animals. Don't touch animals that may be sick. Dont share eating or drinking tools with sick people. Dont kiss someone who is sick. Clean surfaces often with disinfectant. If you were in an area with COVID-19 in the last 14 days: Call your healthcare provider. He or she can talk with local health staff to see what action may be needed. Follow all instructions from your provider. Take your temperature every morning and evening for at least 14 days. This is to check for fever. Keep a record of the readings. Keep watch for symptoms of the virus. Tell your provider right away if you have symptoms. If you were in an area with COVID-19 and have a fever or other symptoms: Dont panic. Keep in mind that other illnesses can cause similar symptoms. Stay away from work, school, and public places. Limit physical contact with family members. Don't kiss anyone or share eating or drinking utensils. Clean surfaces you touch with disinfectant. This is to help prevent the virus from spreading. Call your healthcare provider. Explain that you have been exposed to COVID-19 and have symptoms. Do this before going to any hospital. Wait for instructions. Keep in mind that healthcare staff may wear protective equipment such as masks, gowns, gloves, and eye protection. You may be put in a separate room. This is to prevent the possible virus from spreading. Tell the healthcare staff about recent travel. This includes local travel on public transport. Staff may need to find other people you have been in contact with. Follow all instructions the healthcare staff give you. If you have been diagnosed with COVID-19 Follow all instructions from your healthcare provider. Dont leave your home, except to get medical care. Call your healthcare providers office before going. They can prepare and give you instructions. This will help prevent the virus from spreading. Dont go to work, school, or public areas. Dont use public transport or taxis. Stay away from other people in your home. Have them wear face masks around you. Dont share household items or food. Wear a face mask if you can. This includes at home or in a medical facility. Cover your face with a tissue when you cough or sneeze. Throw the tissue away. Wash your hands. Wash your hands often. Caregivers should: Follow all instructions from healthcare staff. Wear a face mask and protective clothing as advised. Wash hands often. Keep track of the sick persons symptoms. Clean surfaces, fabrics, and laundry thoroughly. Keep other people away from the sick person. When to call your healthcare provider Call your healthcare provider: If youve recently traveled and have symptoms If you have been diagnosed with COVID-19 and your symptoms are worse To learn more To find out more about COVID-19, visit the CDC website at www.cdc.gov/coronavirus/2019-ncov/index.html. 9853-6282 [facility]. [address] [place] [address], [place] [address]. All rights reserved. This information is not intended as a substitute for professional medical care. Always follow your healthcare professional's instructions. This information has been adapted from [employer] Pending Studies at Discharge: No Stand-Alone Forms: My [facility], Opioid Pain Management, Smoking Cessation Medications and DC Order Prescriptions: New gabapentin [Neurontin] 800 mg tablet 800 mg PO TID 30 Days Qty: 90 RF: 0 Continued polyethylene glycol 3350 [Miralax] 17 gram powder in packet 17 g PO QAM RF: 0 nitroglycerin [Nitrostat] 0.4 mg tablet, sublingual 0.4 mg Sublingual DIRECTED PRN (Reason: CHEST PAIN) RF: 0 nystatin 100,000 unit/gram Powder 1 applic TOPICAL TID PRN (Reason: Skin Irritation) RF: 0 cyclobenzaprine 10 mg Tablet 10 mg PO BID RF: 0 ipratropium-albuterol 0.5 mg-3 mg(2.5 mg base)/3 mL Solution For Nebulization 3 ml INHALATION QID PRN (Reason: Shortness Of Breath Or Wheezing) RF: 0 magnesium oxide 400 mg (241.3 mg magnesium) Tablet 400 mg PO QAM RF: 0 docusate sodium 100 mg Capsule 100 mg PO BID RF: 0 Lactinex 1 million cell Tablet,Chewable 1 tab PO BID RF: 0 hydroxyzine HCl 25 mg tablet 25 mg PO QID PRN (Reason: Anxiety) RF: 0 fluticasone propionate 50 mcg/actuation spray,suspension 2 spray Intranasal DAILY PRN (Reason: Allergy Symptoms) RF: 0 aspirin [Ecotrin Low Strength] 81 mg tablet,delayed release (DR/EC) 81 mg PO QAM RF: 0 Spiriva with HandiHaler 18 mcg capsule, w/inhalation device 1 puff inhalation QAM RF: 0 finasteride 5 mg tablet 5 mg PO QAM RF: 0 tamsulosin [Flomax] 0.4 mg Capsule 0.4 mg PO QAM RF: 0 metoprolol succinate 50 mg Tablet Extended Release 24 Hr 50 mg PO BID RF: 0 isosorbide mononitrate 30 mg Tablet Extended Release 24 Hr 30 mg PO QAM RF: 0 spironolactone 25 mg Tablet 25 mg PO QAM RF: 0 Breo Ellipta 200-25 mcg/dose Blister With Device 1 inh INHALATION QAM RF: 0 glipizide 5 mg tablet 5 mg PO BID Qty: 60 RF: 1 atorvastatin 80 mg tablet 80 mg PO QAM RF: 0 sennosides [senna] 8.6 mg Tablet 17.2 mg PO BID RF: 0 folic acid 1 mg Tablet 1 mg PO QAM RF: 0 furosemide [Lasix] 40 mg tablet 40 mg PO BID RF: 0 lorazepam 0.5 mg tablet 0.5 mg PO TID PRN (Reason: Anxiety) RF: 0 Combivent Respimat 20-100 mcg/actuation Mist 1 puff INHALATION QID RF: 0 warfarin [Coumadin] 5 mg Tablet 5 mg PO DAILY RF: 0 potassium chloride 20 mEq Tablet Extended Release 20 meq PO BID RF: 0 amitriptyline 50 mg Tablet 50 mg PO HS RF: 0 benzonatate 100 mg Capsule 100 mg PO TID PRN (Reason: Cough) RF: 0 albuterol sulfate 90 mcg/actuation Hfa Aerosol Inhaler 2 puff INHALATION Q4 PRN (Reason: Dyspnea) RF: 0 pantoprazole 40 mg Tablet,Delayed Release (Dr/Ec) 40 mg PO BID 30 Days Qty: 60 RF: 0 nicotine 7 mg/24 hr Patch 24 Hour 14 mg transdermal QAM 30 Days Qty: 30 RF: 0 sucralfate [Carafate] 1 gram tablet 1 gm PO ACHS 28 Days Qty: 120 RF: 0 bisacodyl [Dulcolax (bisacodyl)] 10 mg suppository 10 mg NC DAILY PRN (Reason: constipation) Qty: 28 RF: 0 duloxetine 20 mg capsule,delayed release(DR/EC) 60 mg PO QAM RF: 0 Changed oxycodone 5 mg tablet 5 mg PO Q8H PRN (Reason: Pain) Qty: 8 RF: 0 Discontinued gabapentin 300 mg capsule 600 mg PO TID 30 Days Qty: 180 RF: 0 Discharge Orders: Discharge Order (Routine); Ordered 03/24/20 Ordered By: Xu Pickering/Other Patient Handouts: What to Know When TakingWarfarin Admission Data Admit Date/Time: 03/15/20 16:22 Attending Provider: Xu Silvestre Admit Provider: Roxy Bradshaw Primary Care Provider: Roberto Askew Other Providers: Roxy Bradshaw ; Siva Dunham ; Lit Blanco Other Interventions: Discharge Summary Assessment (RN) Last Done: 03/26/20 09:35
== END 2020-03-26 10:13 | disposition home health service (06) | DRG 699 ==
LOC: ED 13:06 → 2W 16:22 → SUATTDRO 16:22 → 2W 17:52 → 2S 03-16 16:20 → 2W 03-17 12:58 → 3W 03-19 10:17

== ENCOUNTER 2020-04-14 12:36 | Inpatient (IN) ==
[2020-04-14] MEDS ORDERED: NITROGLYCERIN 2% OINTMENT 30GM TUBE EXT ONE (15:20)
[2020-04-14] MEDS ORDERED: PIPERACILL/TAZOBAC CONSULT ACTIVE PRN (15:28)
[2020-04-14] MEDS ORDERED: PIPERACILLIN/TAZOBACTAM 4.5 GM/120 ML BAG IV ONE (15:28)
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
--- NOTE | 2020-04-14 15:54 | XRay Report ---
SINGLE VIEW CHEST CLINICAL HISTORY: Atypical chest pain. FINDINGS: 2 AP, portable, upright chest radiographs are compared to study dated 03/21/2020 and correlat ed with chest CT dated 08/01/2019. The examination is degraded by portable technique, patient rotatio n, large body habitus, and apical lordotic positioning. The cardiomediastinal silhouette is top norm al for projection. There is mild bibasilar atelectasis. The lungs and pleural spaces are otherwise cl ear. No pneumothorax is seen. There is chronic posttraumatic deformity of the left clavicle. IMPRESSION: No active disease in the chest. Electronically signed by: Misael Lopez M.D. 04/14/2020 3:52 PM
[2020-04-14 17:22] LABS: Basophils # (auto) 0.04 K/uL (0-0.2); Basophils % (auto) 0.3 %; Eosinophils # (auto) 0.54 K/uL (0-0.5); Eosinophils % (auto) 4.1 %; Hematocrit (blood only) 40.9 % (42-52); Hemoglobin 12.9 g/dL (14.0-18.0); Immature Granulocytes # (auto) 0.06 K/uL (0.00-0.02); Immature Granulocytes % (auto) 0.5 %; Lymphocytes # (auto) 2.82 K/uL (1.2-3.4); Lymphocytes % (auto) 21.2 %; Mean Corpuscular Hgb Conc 31.5 g/dL (32-36); Mean Corpuscular Volume 72.9 fL (80-100); Mean Platelet Volume 9.1 fL (7.4-10.4); Monocytes # (auto) 0.78 K/uL (0.11-0.59); Monocytes % (auto) 5.9 %; Neutrophils # (auto) 9.09 K/uL (1.4-6.5); Platelet Count 313 K/uL (130-400); RDW Coefficient of Variation 19.4 % (11.5-14.5); RDW Standard Deviation 51.6 fL (36.4-46.3); Red Blood Count 5.61 M/uL (4.7-6.1); White Blood Count 13.33 K/uL (4.8-10.8)
[2020-04-14 17:37] LABS: Appearance Urine Cloudy (Clear); Bacteria Urine Automated 4+ (Negative); Bilirubin Urine Negative (Negative); Blood Urine 2+ (Negative); Color Urine Yellow; Glucose Urine UA Negative (Negative); Ketones Urine Negative (Negative); Leukocyte Esterase Urine 3+ (Negative); Nitrite Urine Positive (Negative); Protein Urine 1+ (Negative); Specific Gravity Urine 1.009 (1.000-1.030); Urobilinogen Urine Negative (Negative); WBC Urine Automated >30 /hpf (0-5)
[2020-04-14 17:40] LABS: Alanine Aminotransferase 22 U/L (12-78); Albumin Level 3.2 gm/dl (3.4-5.0); Aspartate Aminotransferase 13 U/L (15-37); BUN Creatinine Ratio 2.8 (10-20); Blood Urea Nitrogen 3 mg/dl (7-18); Calcium 9.2 mg/dl (8.5-10.1); Carbon Dioxide 30 mmol/L (21-32); Chloride 102 mmol/L (98-107); Est GFR (African American) 97.3; Est GFR (Non-African American) 83.9; Glucose 99 mg/dl (70-99); Sodium 138 mmol/L (136-145)
[2020-04-14 17:43] LABS: INR 4.8 (0.9-1.1); Partial Thromboplastin Ratio 2.3; Prothrombin Time 46.8 Seconds (9.0-12.0)
[2020-04-14 17:44] LABS: Albumin Globulin Ratio 0.7 (0.9-2); Alkaline Phosphatase 151 U/L (45-117); Bilirubin,Total 0.5 mg/dl (0.2-1); Globulin 4.8 gm/dl (2.5-4.0); Troponin I < 0.015 ng/ml (0-0.045)
[2020-04-14 17:49] LABS: Partial Thromboplastin Time 63.5 Seconds (21.0-31.0)
[2020-04-14 17:54] LABS: Cast Urine Automated 0 /lpf (0-5)
[2020-04-14] MEDS ORDERED: OXYCODONE HCL 10 MG/0.5 ML UDP PO STA (18:47)
[2020-04-14] MEDS ORDERED: OXYCODONE HCL IR 5 MG TAB (IMMEDIATE RELEASE) ONE (19:08)
[2020-04-14] MEDS ORDERED: HYDROmorphone INJ 0.5 MG/0.5 ML SYR IV STA (20:07)
[2020-04-14] MEDS ORDERED: HYDROmorphone INJ 1 MG/ML SYRINGE ONE (20:28)
[2020-04-14] MEDS ORDERED: UREA TOP PRN (21:25)
[2020-04-14] MEDS ORDERED: IPRATROPIUM BROMIDE/ALBUTEROL respimat INH INH SCH (21:25)
[2020-04-14] MEDS ORDERED: SENNA 8.6 MG TAB PO PRN (21:25)
[2020-04-14] MEDS ORDERED: ALBUT/IPRATROP 3MG/0.5MG NEB 3 ML VIAL INH PRN (21:25)
[2020-04-14] MEDS ORDERED: ALBUTEROL HFA 8 GM INHALER INH PRN (21:25)
[2020-04-14] MEDS ORDERED: NON-FORMULARY MEDICATION (Lactobacillus Acidoph-L.Bulgar [Lactinex] 1 TAB) PO SCH (21:25)
[2020-04-14] MEDS ORDERED: NYSTATIN POWDER 15GM BTL EXT PRN (21:25)
[2020-04-14] MEDS ORDERED: NITROGLYCERIN SL 0.4 MG/TAB TAB SL PRN (21:25)
[2020-04-14] MEDS ORDERED: FLUTICASONE PROPIONATE NA SPR 16 GM BTL PRN (21:25)
[2020-04-14] MEDS ORDERED: guaiFENesin 600 MG TABCR PO PRN (21:25)
[2020-04-14] MEDS ORDERED: OXYCODONE HCL IR 5 MG TAB (IMMEDIATE RELEASE) PO PRN (21:25)
[2020-04-14] MEDS ORDERED: ACETAMINOPHEN 325 MG TAB PO PRN (21:25)
[2020-04-14] MEDS ORDERED: GLUCAGON FOR INJ 1 MG VIAL IM PRN (22:00)
[2020-04-14] MEDS ORDERED: GLUCOSE 40% GEL 15 GM TUBE PO PRN (22:00)
[2020-04-14] MEDS ORDERED: CARBOHYDRATES FOR HYPOGLYCEMIA PO PRN (22:00)
[2020-04-14] MEDS ORDERED: DEXTROSE 50% 50 ML SYRINGE IV PRN (22:00)
[2020-04-14] MEDS ORDERED: GLUCOSE 10 TABS/TUBE PO PRN (22:00)
[2020-04-14] MEDS: PIPERACILLIN/TAZOBACTAM 4.5 GM in DEXTROSE 5% 100 ML IV SCH (23:19)
[2020-04-14] MEDS: ATORVASTATIN 40 MG TAB PO SCH (23:20)
[2020-04-14] MEDS: AMITRIPTYLINE HCL 50 MG TAB PO SCH (23:20)
[2020-04-14] MEDS: GABAPENTIN 800 MG TAB PO SCH (23:21)
[2020-04-14] MEDS: SUCRALFATE 1 GM TAB PO SCH (23:21)
[2020-04-14] MEDS: POTASSIUM CHLORIDE 20 MEQ TABCR PO SCH (23:22)
[2020-04-14] MEDS: DOCUSATE SODIUM 100 MG CAP PO SCH (23:22)
[2020-04-14] MEDS: NICOTINE 21 MG/24 HR TDSY TD SCH (23:23)
[2020-04-14] MEDS: CYCLOBENZAPRINE HCL 10 MG TAB PO SCH (23:24)
[2020-04-14] MEDS: METOPROLOL SUCC 50MG EXT REL TAB PO SCH (23:24)
[2020-04-14] MEDS: FUROSEMIDE 40 MG TAB PO SCH (23:25)
[2020-04-14] MEDS: INSULIN ASPART 100 UNITS/ML 3 ML PEN SC SCH (23:40)
[2020-04-14] MEDS: OXYCODONE HCL IR 5 MG TAB (IMMEDIATE RELEASE) PO PRN (23:46)
--- NOTE | 2020-04-15 03:52 | History and Physical Report ---
DATE OF ADMISSION: 04/14/2020 CHIEF COMPLAINT: Urinary symptoms. HISTORY OF PRESENT ILLNESS: This is a 49-year-old male with past medical history significant for right-sided heart failure, history of PE, on Coumadin, hypertension, COPD, chronic pain with opiate dependence, mood disorder, tobacco abuse, history of ESBL UTI, history of sepsis secondary to urinary tract infection, anemia, morbid obesity, noncompliant with medication and frequent hospitalizations. The patient also has history of traumatic subdural hematoma and subarachnoid hematoma in setting of Coumadin use and was admitted to [facility] from 11/18/2019-12/04/2019. He was also treated for CHF and UTI and Coumadin was restarted. He has chronic indwelling Lloyd catheter. He has a history of infection with enterococcus UTI. The patient was recently in the hospital and was discharged on 03/26/20. At that time also he was admitted for catheter associated urinary tract infection. The patient has a followup appointment with his PCP on 04/10/2020, at that time he complained of urinary symptoms and cultures were drawn, which was growing again enterococcus and Enterobacter. The patient states after he saw his family doctor, he came home and was felt tired and slept for the whole day and he feels like he is having low grade temperatures, abdominal discomfort, has chronic chest pains, and chronic shortness of breath on exertion, chronic back pains. He has swelling in the legs, the same as before, they did not worsen. He has some superficial wounds on the right sandhu. He says he has some right foot pain because he rolled over on the leg and is requesting for x-ray of the foot. Currently hemodynamics are stable. Denies any headache, no runny nose, no sore throat. Has chronic cough. He has loss of sense of smell or taste. He complained this in last admission too and COVID was negative and the COVID was again checked today in the ER, it was negative. Appetite is okay. No dysphagia. No rash seen. ALLERGIES: FENTANYL, NALOXONE, ACETAMINOPHEN, IBUPROFEN, AND VALPROIC ACID. PAST MEDICAL HISTORY: As mentioned above. PAST SURGICAL HISTORY: Colonoscopy, EGDs, EGD with endoscopic ultrasound, foot surgery, left finger tendon repair,, lumbar laminectomy. FAMILY HISTORY: Significant for sister has breast cancer. Mother had musculoskeletal disorder. Maternal grandfather has NC, maternal grandmother has NC. SOCIAL HISTORY: Lives with family, smokes 1-1-/2 pack a day for last 30 years, history of DUIs in the past, but not currently drinking alcohol. The patient has dependence on prescribed pain medications. MEDICATIONS: Currently the patient is on albuterol 2 puffs q. 4 hours p.r.n., amitriptyline 50 mg p.o. at bedtime, aspirin 81 mg p.o. daily, atorvastatin 80 mg p.o. p.m., Breo Ellipta 1 inhalation a.m., Combivent Respimat 1 inhalation q.i.d., cyclobenzaprine 10 mg p.o. b.i.d., Colace 100 mg p.o. b.i.d., Cymbalta 60 mg p.o. daily, finasteride 5 mg p.o. a.m., Flonase 2 sprays intranasal daily p.r.n., folic acid 1 mg p.o. a.m., Lasix 40 mg p.o. b.i.d., gabapentin 800 mg p.o. t.i.d., glipizide 5 mg p.o. b.i.d., Mucinex 600 mg p.o. q. 12 hours p.r.n., hydroxyzine 25 mg p.o. q.i.d. p.r.n., DuoNebs q. 6 hours p.r.n., isosorbide mononitrate 30 mg p.o. a.m., Lactinex 1 tablet p.o. b.i.d., lorazepam 0.5 mg p.o. q. 8 hours p.r.n., magnesium oxide 400 mg p.o. a.m., metoprolol succinate 50 mg p.o. b.i.d., nitrofurantoin 100 mg p.o. b.i.d., Nitrostat 0.4 mg sublingual p.r.n., nystatin topical t.i.d. p.r.n., omeprazole 20 mg p.o. daily, Zofran 4 mg p.o. q. 4 hours p.r.n., oxycodone 10 mg p.o. q. 4 hours p.r.n., MiraLax 17 grams p.o. a.m., potassium chloride 20 mEq p.o. b.i.d., Senokot 8.6 mg p.o. daily p.r.n., Spiriva with HandiHaler 1 puff inhalation a.m., spironolactone 25 mg p.o. a.m., sucralfate 1 gram p.o. before meals and at bedtime, Flomax 0.4 mg p.o. a.m., urea topical b.i.d. p.r.n., Coumadin 5 mg p.o. daily. REVIEW OF SYMPTOMS: As per HPI. Rest of review of symptoms negative. PHYSICAL EXAMINATION: GENERAL: The patient is alert and oriented, not in acute distress. VITAL SIGNS: Temperature 37.4, pulse 95, respiratory rate 13, blood pressure 108/74, oxygen 96% on room air. HEENT: No pallor, no icterus. Extraocular muscles intact. NECK: No JVD, no neck masses. CARDIOVASCULAR: S1, S2 heard, regular rate and rhythm, no murmur, no gallop. RESPIRATORY SYSTEM: Normal AP diameter. No accessory muscle use. No wheezing, no crackles. ABDOMEN: Soft, bowel sounds present, nontender. No distention. CENTRAL NERVOUS SYSTEM: Cranial nerves II-XII grossly intact. Nonfocal. EXTREMITIES: Lower extremity edema present with some superficial wound in the right sandhu seen. Dry skin seen. LABORATORY DATA: WBC 13.3, hemoglobin 12.9, hematocrit 40.9, platelets 313. PT 46.8, INR 4.8, APTT 63.5. Sodium 138, potassium 4, chloride 102, bicarbonate 30, BUN 3, creatinine 1.04, serum glucose 99. Lactate 1.6, calcium 9.2, total bilirubin 0.5, AST 13, ALT 22, alkaline phosphatase 151. Troponin I less than 0.015. Urinalysis positive for nitrite and leukocyte esterase and +4 bacteria. COVID-19 PCR negative. IMAGING: Chest x-ray, no active disease in the chest. EKG: Normal sinus rhythm with rate of 92, nonspecific, no acute ST changes seen. ASSESSMENT AND PLAN: This 49-year-old male who presents with not feeling well and abdominal discomfort and found to have a urinary tract infection. 1. Recurrent urinary tract infection due to chronic Lloyd catheter: Outpatient cultures showed Enterobacter and also enterococcus. We will place on IV Zosyn and follow the response. 2. Chronic diastolic congestive heart failure: Continue his home medication of Lasix, spironolactone and potassium supplements. Monitor for any volume overload. 3. Chronic chest pain: No EKG changes, mostly noncardiac. 4. History of pulmonary embolism: On Coumadin. INR is supratherapeutic. Hold Coumadin. Follow PT/INR. 5. Type 2 diabetes: We will place him on insulin sliding scale. 6. Chronic obstructive pulmonary disease: Continue his home inhalers and nebs p.r.n. 7. Chronic pain disorder: We will discontinue his home pain medications. 8. Tobacco use disorder: On nicotine patch, needs counseling. 9. Hypertension: Continue his home medication. We will monitor blood pressure. 10. Morbid obesity: Needs counseling. 11. History of subdural and subarachnoid hemorrhage in October, was in [place], currently back on Coumadin. Need to monitor. 12. Right foot pain. Will follow x ray. 13. Deep venous thrombosis prophylaxis. INR is supratherapeutic. DISPOSITION: Admit to med tele. Expect to discharge home and follow with family doctor. Level 1 full code. MTDD
[2020-04-15] MEDS: OXYCODONE HCL IR 5 MG TAB (IMMEDIATE RELEASE) PO PRN ×5 (04:24→21:08)
[2020-04-15 05:58] LABS: Basophils # (auto) 0.04 K/uL (0-0.2); Basophils % (auto) 0.3 %; Eosinophils # (auto) 0.58 K/uL (0-0.5); Hemoglobin 11.7 g/dL (14.0-18.0); Immature Granulocytes # (auto) 0.04 K/uL (0.00-0.02); Immature Granulocytes % (auto) 0.3 %; Lymphocytes # (auto) 2.16 K/uL (1.2-3.4); Lymphocytes % (auto) 18.7 %; Mean Corpuscular Hemoglobin 22.9 pg (25-34); Mean Corpuscular Hgb Conc 31.6 g/dL (32-36); Mean Corpuscular Volume 72.4 fL (80-100); Mean Platelet Volume 9.5 fL (7.4-10.4); Monocytes # (auto) 0.67 K/uL (0.11-0.59); Monocytes % (auto) 5.8 %; Neutrophils # (auto) 8.06 K/uL (1.4-6.5); Neutrophils % (auto) 69.9 %; Platelet Count 297 K/uL (130-400); RDW Coefficient of Variation 19.4 % (11.5-14.5); RDW Standard Deviation 51.7 fL (36.4-46.3); Red Blood Count 5.11 M/uL (4.7-6.1); White Blood Count 11.55 K/uL (4.8-10.8)
[2020-04-15 06:19] LABS: Prothrombin Time 57.5 Seconds (9.0-12.0)
[2020-04-15] MEDS: PANTOprazole 40 MG TAB PO SCH (06:25)
[2020-04-15] MEDS: PIPERACILLIN/TAZOBACTAM 4.5 GM in DEXTROSE 5% 100 ML IV SCH ×3 (06:25→21:09)
[2020-04-15] MEDS: SUCRALFATE 1 GM TAB PO SCH ×4 (06:30→21:13)
[2020-04-15 06:31] LABS: BUN Creatinine Ratio 6.5 (10-20); Blood Urea Nitrogen 7 mg/dl (7-18); Calcium 8.7 mg/dl (8.5-10.1); Carbon Dioxide 29 mmol/L (21-32); Chloride 106 mmol/L (98-107); Creatinine Clr Calc Pharmacy 159.9 ml/min; Est GFR (African American) 100.8; Est GFR (Non-African American) 86.9; Glucose 143 mg/dl (70-99); Magnesium 1.8 mg/dl (1.8-2.4); Potassium 3.9 mmol/L (3.5-5.1); Sodium 139 mmol/L (136-145)
[2020-04-15 06:35] LABS: Troponin I < 0.015 ng/ml (0-0.045)
[2020-04-15 06:46] LABS: Estimated Average Glucose 163 mg/dl; Hemoglobin A1C 7.3 % (4.5-5.6)
--- NOTE | 2020-04-15 07:28 | XRay Report ---
XR foot RT min 3V routine HISTORY: 49 years-old Male right foot pain, injury acute posttraumatic right foot pain COMPARISON: Right foot radiographs 06/13/2019 TECHNIQUE: 3 views of the right foot FINDINGS: There is a remote fracture deformity involving the mid diaphyseal third metatarsal which again demons trates nonunion. Multiple metallic fragments are seen within the adjacent tissues. Mild degenerative changes of the hindfoot and midfoot. Mild dorsal forefoot soft tissue swelling. No acute fracture or dislocation. Tiny type I accessory navicular. IMPRESSION: 1. No acute fracture or dislocation. 2. 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 ACT 112: Negative or not required by law. The above report was generated using voice recognition software. It may contain grammatical, syntax o r spelling errors. Electronically signed by: Kem Apodaca M.D. 04/15/2020 7:26 AM
[2020-04-15] MEDS ORDERED: PHYTONADIONE 5 MG TAB PO ONE (07:30)
[2020-04-15] MEDS: INSULIN ASPART 100 UNITS/ML 3 ML PEN SC SCH ×4 (08:30→21:14)
[2020-04-15] MEDS: DOCUSATE SODIUM 100 MG CAP PO SCH ×2 (08:33→21:10)
[2020-04-15] MEDS: NICOTINE 21 MG/24 HR TDSY TD SCH (08:33)
[2020-04-15] MEDS: POTASSIUM CHLORIDE 20 MEQ TABCR PO SCH ×2 (08:33→21:12)
[2020-04-15] MEDS: MAGNESIUM OXIDE 400 MG TAB PO SCH (08:34)
[2020-04-15] MEDS: FUROSEMIDE 40 MG TAB PO SCH ×2 (08:34→17:19)
[2020-04-15] MEDS: ISOSORBIDE MONO EXTENDED REL 30 MG TABCR PO SCH (08:34)
[2020-04-15] MEDS: SPIRONOLACTONE 25 MG TAB PO SCH (08:34)
[2020-04-15] MEDS: TAMSULOSIN HCL 0.4 MG CAP PO SCH (08:35)
[2020-04-15] MEDS: METOPROLOL SUCC 50MG EXT REL TAB PO SCH ×2 (08:35→21:11)
[2020-04-15] MEDS: FOLIC ACID 1 MG TAB PO SCH (08:35)
[2020-04-15] MEDS: CYCLOBENZAPRINE HCL 10 MG TAB PO SCH ×2 (08:35→21:14)
[2020-04-15] MEDS: FINASTERIDE 5 MG TAB PO SCH (08:35)
[2020-04-15] MEDS: DULOXETINE HCL 60 MG CAP PO SCH (08:36)
[2020-04-15] MEDS: GABAPENTIN 800 MG TAB PO SCH ×3 (08:36→21:10)
[2020-04-15] MEDS: ASPIRIN 81 MG ECTAB PO SCH (08:36)
[2020-04-15] MEDS: UMECLIDINIUM BROMIDE 62.5MCG/BLISTER 7 PUFFS/INHALER INH SCH (08:37)
[2020-04-15] MEDS: FLUTICASONE/VILANTEROL 200/25MCG 14 PUFFS/INHALER INH SCH (08:37)
[2020-04-15] MEDS: POLYETHYLENE (MIRALAX) 17 GM PACK PO SCH (08:38)
[2020-04-15] MEDS ORDERED: PHENAZOPYRIDINE HCL 200 MG TAB PO PRN (13:43)
--- NOTE | 2020-04-15 14:32 | Hospitalist Progress Note ---
Date of Service April 15, 2020 Assessment & Plan (1) Catheter-associated urinary tract infection: Recurrent catheter associated urinary tract infection Received a course of antibiotic recently with Macrobid and Bactrim secondary to enterococcus infection in the urine Presented with foul-smelling urine and dysuria without any fever and/or chills UA was suggestive of infection and started on intravenous Zosyn Urine culture is growing gram-negative bacilli and blood cultures are pending As dysuria and catheter induced pain-will prescribe Pyridium for dysuria Will change Lloyd catheter tomorrow and continue current antibiotics (2) Supratherapeutic INR: Has history of pulmonary embolism and has been on Coumadin Noted to be high at 6.0 We will hold Coumadin and give 2.5 of vitamin K orally Monitor INR (3) Peripheral neuropathy: Has type 2 diabetes with peripheral neuropathy Has been on gabapentin for pain management of neuropathy (4) Morbid obesity: (5) DM type 2 (diabetes mellitus, type 2): We will hold any oral diabetes medications SSI (6) Chronic right heart failure: Continue Lasix and his prolactin No signs of fluid overload Chest x-ray did not show any CHF (7) COPD (chronic obstructive pulmonary disease): No exacerbation (8) Chronic pain: History of chronic pain with narcotic dependence 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 Has been getting oxycodone 10 mg every 4 hourly for as needed pain control Will not change the narcotic regimen during this admission DVT prophylaxis Has been on Coumadin CODE STATUS Full Admission and Anticipated Discharge Date Admission Date: April 14, 2020 Subjective The patient was seen and examined in medical telemetry unit He has been complaining of pain due to catheter with dysuria His pain in the right foot has increased Denies any chest pain, palpitation or shortness of breath No fever and/or chills Review of Systems Review of Systems: All systems reviewed and are unremarkable except as noted below Constitutional: + anorexia Musculoskeletal: Complains of pain in the right foot Physical Exam Physical Exam: Lying in bed comfortably Constitutional: well developed, well nourished and + morbidly obese; no acute distress and not ill appearing Eyes: PERRL, conjunctivae normal, anicteric sclerae ENMT: external ear and nose normal, oropharynx normal Neck: trachea midline, no thyromegaly Respiratory: normal respiratory effort; no respiratory distress Auscultation: + crackles (Very minimal crackles at the bases bilaterally) Cardiovascular: Rate/Rhythm: regular rate and regular rhythm Heart Sounds: no murmur Gastrointestinal (Abdomen): Inspection/Auscultation: abdomen normal to inspection and normal bowel sounds; abdomen not distended Percussion/Palpation: abdomen soft; abdomen nontender Musculoskeletal: No acute arthritis involving any joints Neurologic: moves all extremities; no focal motor deficits Alert, 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 Genitourinary: Has chronic indwelling Lloyd catheter. Complains of pain due to UTI/chronic Lloyd Results & Data Results & Data ([facility]) Vital Signs (Past 12 Hours) Vital Signs Temp Pulse Pulse Resp BP Pulse Ox 04/15/20 11:40 36.9 C 89 20 101/67 92 04/15/20 08:47 76 04/15/20 07:35 36.7 C 81 18 96/59 L 91 04/15/20 03:32 36.7 C 88 18 117/67 91 Laboratory Results Short CBC 04/14/20 04/15/20 Range/Units 16:55 05:39 WBC 13.33 H 11.55 H (4.8-10.8) K/uL Hgb 12.9 L 11.7 L (14.0-18.0) g/dL Hct 40.9 L 37.0 L (42-52) % Plt Count 313 297 (130-400) K/uL BMP 04/14/20 04/15/20 16:55 05:39 Sodium 138 139 Potassium 4.0 3.9 Chloride 102 106 Carbon Dioxide 30 29 BUN 3 L 7 Creatinine 1.04 1.01 Glucose 99 143 H Calcium 9.2 8.7 Cardiac Enzymes 04/14/20 04/14/20 04/15/20 Range/Units 16:55 22:46 05:39 Troponin I < 0.015 < 0.015 < 0.015 (0-0.045) ng/ml Liver Function 04/14/20 Range/Units 16:55 Total Bilirubin 0.5 (0.2-1) mg/dl AST 13 L (15-37) U/L ALT 22 (12-78) U/L Alkaline Phosphatase 151 H (45-117) U/L Albumin 3.2 L (3.4-5.0) gm/dl Urine 04/14/20 Range/Units 16:30 Urine Color Yellow Urine Appearance Cloudy A (Clear) Urine pH 6.0 (4.5-7.5) Ur Specific [place] 1.009 (1.000-1.030) Urine Protein 1+ H (Negative) Urine Glucose (UA) Negative (Negative) Medications Administered Current Inpatient Medications Acetaminophen (Tylenol) 650 mg PO Q4H PRN PRN Reason: Pain or Fever Stop: 05/14/20 21:24 Albuterol (Ventolin Hfa) 2 puffs INH Q4 PRN PRN Reason: Dyspnea Stop: 05/14/20 21:24 Albuterol (Duoneb) 3 ml INH Q6H PRN PRN Reason: Shortness Of Breath Or Wheezing Stop: 05/14/20 21:24 Amitriptyline HCl (Elavil) 50 mg PO HS [facility] Stop: 05/14/20 21:24 Last Admin: 04/14/20 23:20 Dose: 50 mg Documented by: Aspirin (Ecotrin Ectab) 81 mg PO QAM EMPERATRIZ Stop: 05/15/20 08:59 Last Admin: 04/15/20 08:36 Dose: 81 mg Documented by: Atorvastatin Calcium (Lipitor) 80 mg PO QPM EMPERATRIZ Stop: 05/14/20 21:24 Last Admin: 04/14/20 23:20 Dose: 80 mg Documented by: Cyclobenzaprine HCl (Flexeril) 10 mg PO BID [facility] Stop: 05/14/20 21:24 Last Admin: 04/15/20 08:35 Dose: 10 mg Documented by: Dextrose (Dextrose 50%) 25 - 50 ml IV UD PRN; Protocol PRN Reason: Hypoglycemia Protocol Stop: 05/14/20 21:59 Docusate Sodium (Colace) 100 mg PO BID EMPERATRIZ Stop: 05/14/20 21:24 Last Admin: 04/15/20 08:33 Dose: 100 mg Documented by: Duloxetine HCl (Cymbalta) 60 mg PO QAM [facility] Stop: 05/15/20 08:59 Last Admin: 04/15/20 08:36 Dose: 60 mg Documented by: Finasteride (Proscar) 5 mg PO QAM EMPERATRIZ Stop: 05/15/20 08:59 Last Admin: 04/15/20 08:35 Dose: 5 mg Documented by: Fluticasone Propionate (Flonase) 2 sprays NA DAILY PRN PRN Reason: Allergy Symptoms Stop: 05/14/20 21:24 Fluticasone/Vilanterol (Breo Ellipta 200/25 Mcg Inh) 1 puffs INH QAM [facility] Stop: 05/15/20 08:59 Last Admin: 04/15/20 08:37 Dose: 1 puffs Documented by: Folic Acid (Folvite) 1 mg PO QAM [facility] Stop: 05/15/20 08:59 Last Admin: 04/15/20 08:35 Dose: 1 mg Documented by: Furosemide (Lasix) 40 mg PO BID17 [facility] Stop: 05/14/20 21:24 Last Admin: 04/15/20 08:34 Dose: 40 mg Documented by: Gabapentin (Neurontin) 800 mg PO TID [facility] Stop: 05/14/20 21:24 Last Admin: 04/15/20 13:47 Dose: 800 mg Documented by: Glucagon (Glucagen) 1 mg IM UD PRN; Protocol PRN Reason: Hypoglycemia Protocol Stop: 05/14/20 21:59 Glucose (Glucose 40%) 15 - 30 gm PO UD PRN; Protocol PRN Reason: Hypoglycemia Protocol Stop: 05/14/20 21:59 Glucose (Dex4 Glucose) 4 - 8 tabs PO UD PRN; Protocol PRN Reason: Hypoglycemia Protocol Stop: 05/14/20 21:59 Guaifenesin (Mucinex) 600 mg PO Q12H PRN PRN Reason: Congestion Stop: 05/14/20 21:24 Hydroxyzine HCl (Vistaril) 25 mg PO QID PRN PRN Reason: Anxiety Stop: 05/14/20 21:24 Promethazine HCl 12.5 mg/ (Sodium Chloride) 50.5 mls @ 202 mls/hr IV Q6H PRN PRN Reason: Nausea And Vomiting Stop: 05/14/20 21:28 Piperacillin Sod/Tazobactam (Sod 4.5 gm/ Dextrose) 120 mls @ 30 mls/hr IV Q8H [facility]; Protocol Stop: 04/24/20 21:59 Last Admin: 04/15/20 13:50 Dose: 30 mls/hr Documented by: Insulin Aspart (Novolog Flexpen) 0 units SC ACHS [facility] Stop: 05/14/20 21:24 Last Admin: 04/15/20 12:11 Dose: 8 units Documented by: Isosorbide Mononitrate (Imdur Extended Rel) 30 mg PO QAM [facility] Stop: 05/15/20 08:59 Last Admin: 04/15/20 08:34 Dose: 30 mg Documented by: Lorazepam (Ativan) 0.5 mg PO Q8H PRN PRN Reason: Anxiety Stop: 05/14/20 21:24 Magnesium Oxide (Mag-Ox) 400 mg PO QAM [facility] Stop: 05/15/20 08:59 Last Admin: 04/15/20 08:34 Dose: 400 mg Documented by: Metoprolol Succinate (Toprol Xl) 50 mg PO BID [facility] Stop: 05/14/20 21:24 Last Admin: 04/15/20 08:35 Dose: 50 mg Documented by: Miscellaneous (Remove Nicoderm Patch) 1 ea N/A DAILY@0859 [facility] Stop: 05/15/20 08:58 Last Admin: 04/15/20 08:32 Dose: 1 ea Documented by: Miscellaneous (Carbohydrates For Hypoglycemia) 15 - 30 gm PO UD PRN PRN Reason: Hypoglycemia Treatment Stop: 05/14/20 21:59 Miscellaneous Information (Consult) 1 ea N/A UD PRN PRN Reason: Consult Stop: 05/14/20 15:27 Nicotine (Nicoderm Cq) 21 mg TD DAILY [facility] Stop: 05/14/20 21:34 Last Admin: 04/15/20 08:33 Dose: 21 mg Documented by: Nitroglycerin (Nitrostat) 0.4 mg SL UD PRN PRN Reason: CHEST PAIN Stop: 05/14/20 21:24 Nystatin (Mycostatin) 1 appln EXT TID PRN PRN Reason: Skin Irritation Stop: 05/14/20 21:24 Oxycodone HCl (Roxicodone Immediate Rel) 10 mg PO Q4H PRN PRN Reason: Pain Stop: 04/28/20 21:29 Last Admin: 04/15/20 13:05 Dose: 10 mg Documented by: Pantoprazole Sodium (Protonix) 40 mg PO DAILYBB [facility] Stop: 05/15/20 06:29 Last Admin: 04/15/20 06:25 Dose: 40 mg Documented by: Phenazopyridine HCl (Pyridium) 200 mg PO TID PRN PRN Reason: Dysuria Stop: 05/15/20 13:42 Polyethylene Glycol (Miralax Powder Packet) 17 gm PO DAILY PRN PRN Reason: Constipation Stop: 05/14/20 21:24 Polyethylene Glycol (Miralax Powder Packet) 17 gm PO QAM [facility] Stop: 05/15/20 08:59 Last Admin: 04/15/20 08:38 Dose: Not Given Documented by: Potassium Chloride (Klor-Con M20) 20 meq PO BID [facility] Stop: 05/14/20 21:24 Last Admin: 04/15/20 08:33 Dose: 20 meq Documented by: Sennosides (Senokot) 8.6 mg PO DAILY PRN PRN Reason: Constipation Stop: 05/14/20 21:24 Spironolactone (Aldactone) 25 mg PO QAM [facility] Stop: 05/15/20 08:59 Last Admin: 04/15/20 08:34 Dose: 25 mg Documented by: Sucralfate (Carafate Tab) 1 gm PO ACHS [facility] Stop: 05/14/20 21:24 Last Admin: 04/15/20 11:27 Dose: 1 gm Documented by: Tamsulosin HCl (Flomax) 0.4 mg PO QAM [facility] Stop: 05/15/20 08:59 Last Admin: 04/15/20 08:35 Dose: 0.4 mg Documented by: Umeclidinium [place] (Incruse Ellipta) 1 puffs INH QAM [facility] Stop: 05/15/20 08:59 Last Admin: 04/15/20 08:37 Dose: 1 puffs Documented by: Warfarin Sodium (Coumadin) 5 mg PO DAILY@1600 [facility] Stop: 05/15/20 15:59 (1) COPD (chronic obstructive pulmonary disease) COPD type: unspecified COPD Qualified Code(s): J44.9 - Chronic obstructive pulmonary disease, unspecified
[2020-04-15] MEDS: LORazepam 0.5 MG TAB PO PRN (17:54)
[2020-04-15] MEDS: ATORVASTATIN 40 MG TAB PO SCH (21:11)
[2020-04-15] MEDS: AMITRIPTYLINE HCL 50 MG TAB PO SCH (21:13)
[2020-04-15] MEDS ORDERED: KETOROLAC TROMETHAMINE 15 MG/ML VIAL IV ONE (21:49)
[2020-04-16] MEDS: OXYCODONE HCL IR 5 MG TAB (IMMEDIATE RELEASE) PO PRN ×6 (01:02→21:29)
[2020-04-16] MEDS: PROMETHAZINE HCL 12.5 MG in SODIUM CHLORIDE 0.9% 50 ML IV PRN (02:44)
[2020-04-16] MEDS: PIPERACILLIN/TAZOBACTAM 4.5 GM in DEXTROSE 5% 100 ML IV SCH ×3 (06:09→21:30)
[2020-04-16] MEDS: PANTOprazole 40 MG TAB PO SCH (06:10)
[2020-04-16 06:36] LABS: INR 3.2 (0.9-1.1); Prothrombin Time 31.3 Seconds (9.0-12.0)
[2020-04-16] MEDS: SUCRALFATE 1 GM TAB PO SCH ×4 (08:02→20:28)
[2020-04-16] MEDS: ISOSORBIDE MONO EXTENDED REL 30 MG TABCR PO SCH (08:02)
[2020-04-16] MEDS: FOLIC ACID 1 MG TAB PO SCH (08:02)
[2020-04-16] MEDS: FINASTERIDE 5 MG TAB PO SCH (08:02)
[2020-04-16] MEDS: TAMSULOSIN HCL 0.4 MG CAP PO SCH (08:02)
[2020-04-16] MEDS: FUROSEMIDE 40 MG TAB PO SCH ×2 (08:02→17:28)
[2020-04-16] MEDS: DOCUSATE SODIUM 100 MG CAP PO SCH ×2 (08:03→20:27)
[2020-04-16] MEDS: SPIRONOLACTONE 25 MG TAB PO SCH (08:03)
[2020-04-16] MEDS: NICOTINE 21 MG/24 HR TDSY TD SCH (08:03)
[2020-04-16] MEDS: ASPIRIN 81 MG ECTAB PO SCH (08:03)
[2020-04-16] MEDS: UMECLIDINIUM BROMIDE 62.5MCG/BLISTER 7 PUFFS/INHALER INH SCH (08:04)
[2020-04-16] MEDS: FLUTICASONE/VILANTEROL 200/25MCG 14 PUFFS/INHALER INH SCH (08:04)
[2020-04-16] MEDS: GABAPENTIN 800 MG TAB PO SCH ×3 (08:04→20:24)
[2020-04-16] MEDS: POLYETHYLENE (MIRALAX) 17 GM PACK PO SCH (08:04)
[2020-04-16] MEDS: MAGNESIUM OXIDE 400 MG TAB PO SCH (08:04)
[2020-04-16] MEDS: POTASSIUM CHLORIDE 20 MEQ TABCR PO SCH ×2 (08:05→20:24)
[2020-04-16] MEDS: METOPROLOL SUCC 50MG EXT REL TAB PO SCH ×2 (08:05→20:24)
[2020-04-16] MEDS: DULOXETINE HCL 60 MG CAP PO SCH (08:05)
[2020-04-16] MEDS: CYCLOBENZAPRINE HCL 10 MG TAB PO SCH ×2 (08:06→20:27)
[2020-04-16] MEDS: INSULIN ASPART 100 UNITS/ML 3 ML PEN SC SCH ×4 (08:09→20:30)
[2020-04-16] MEDS ORDERED: HYDROmorphone INJ 1 MG/ML SYRINGE IV ONE (10:44)
--- NOTE | 2020-04-16 12:42 | Hospitalist Progress Note ---
Date of Service April 16, 2020 Assessment & Plan (1) Catheter-associated urinary tract infection: Recurrent catheter associated urinary tract infection Received a course of antibiotic recently with Macrobid and Bactrim secondary to enterococcus infection in the urine Presented with foul-smelling urine and dysuria without any fever and/or chills UA was suggestive of infection and started on intravenous Zosyn Urine culture is growing gram-negative bacilli and blood cultures are pending As dysuria and catheter induced pain-will prescribe Pyridium for dysuria Remains afebrile and white count was 11.55 as of yesterday that is 04/15/2020 Lloyd catheter has been there for more than a month Will change the catheter today (2) Supratherapeutic INR: Has history of pulmonary embolism and has been on Coumadin Noted to be high at 6.0 We will hold Coumadin and give 2.5 of vitamin K orally INR is 3.2 today but received vitamin K on 04/15/2020 Will restart Coumadin and monitor INR (3) Peripheral neuropathy: Has type 2 diabetes with peripheral neuropathy Has been on gabapentin for pain management of neuropathy (4) Morbid obesity: (5) DM type 2 (diabetes mellitus, type 2): We will hold any oral diabetes medications SSI (6) Chronic right heart failure: Continue Lasix and his prolactin No signs of fluid overload Chest x-ray did not show any CHF (7) COPD (chronic obstructive pulmonary disease): No exacerbation (8) Chronic pain: History of chronic pain with narcotic dependence 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 Gilmore who saw him before for the same reason DVT prophylaxis Has been on Coumadin CODE STATUS Full Admission and Anticipated Discharge Date Admission Date: April 14, 2020 Subjective The patient was seen and examined in medical telemetry unit He has been complaining of pain due to catheter with dysuria His pain in the right foot has increased Denies any chest pain, palpitation or shortness of breath No fever and/or chills 04/16/2020 The patient was seen and examined in medical telemetry unit He still complains today of pain due to catheter with dysuria Complains to have low-grade fever yesterday and more cough with a little wheezing Denies any chest pain and/or palpitation, did not talk about pain today except catheter related discomfort Review of Systems Review of Systems: All systems reviewed and are unremarkable except as noted below Constitutional: + anorexia Musculoskeletal: Complains of pain in the right foot Physical Exam Physical Exam: Lying in bed comfortably Constitutional: well developed, well nourished and + morbidly obese; no acute distress and not ill appearing Eyes: PERRL, conjunctivae normal, anicteric sclerae ENMT: external ear and nose normal, oropharynx normal Neck: trachea midline, no thyromegaly Respiratory: normal respiratory effort; no respiratory distress Auscultation: + crackles (Very minimal crackles at the bases bilaterally) and + wheezes (Minimal wheezing bilaterally) Cardiovascular: Rate/Rhythm: regular rate and regular rhythm Heart Sounds: no murmur Gastrointestinal (Abdomen): Inspection/Auscultation: abdomen normal to inspection and normal bowel sounds; abdomen not distended Percussion/Palpation: abdomen soft; abdomen nontender Musculoskeletal: Minimal pain on right foot with movement Neurologic: moves all extremities; no focal motor deficits Genitourinary: Has urinary catheter in place Results & Data Results & Data ([facility]) Vital Signs (Past 12 Hours) Vital Signs Temp Pulse Pulse Resp BP Pulse Ox 04/16/20 12:00 37.3 C 83 20 107/66 94 04/16/20 07:00 36.7 C 80 20 105/68 93 04/16/20 03:48 36.8 C 86 18 107/61 91 04/16/20 02:11 99 H Medications Administered Current Inpatient Medications Acetaminophen (Tylenol) 650 mg PO Q4H PRN PRN Reason: Pain or Fever Stop: 05/14/20 21:24 Albuterol (Ventolin Hfa) 2 puffs INH Q4 PRN PRN Reason: Dyspnea Stop: 05/14/20 21:24 Albuterol (Duoneb) 3 ml INH Q6H PRN PRN Reason: Shortness Of Breath Or Wheezing Stop: 05/14/20 21:24 Amitriptyline HCl (Elavil) 50 mg PO HS EMPERATRIZ Stop: 05/14/20 21:24 Last Admin: 04/15/20 21:13 Dose: 50 mg Documented by: Aspirin (Ecotrin Ectab) 81 mg PO QAM [facility] Stop: 05/15/20 08:59 Last Admin: 04/16/20 08:03 Dose: 81 mg Documented by: Atorvastatin Calcium (Lipitor) 80 mg PO QPM [facility] Stop: 05/14/20 21:24 Last Admin: 04/15/20 21:11 Dose: 80 mg Documented by: Cyclobenzaprine HCl (Flexeril) 10 mg PO BID [facility] Stop: 05/14/20 21:24 Last Admin: 04/16/20 08:06 Dose: 10 mg Documented by: Dextrose (Dextrose 50%) 25 - 50 ml IV UD PRN; Protocol PRN Reason: Hypoglycemia Protocol Stop: 05/14/20 21:59 Docusate Sodium (Colace) 100 mg PO BID [facility] Stop: 05/14/20 21:24 Last Admin: 04/16/20 08:03 Dose: 100 mg Documented by: Duloxetine HCl (Cymbalta) [facility] Stop: 05/15/20 08:59 Last Admin: 04/16/20 08:05 Dose: 60 mg Documented by: Finasteride (Proscar) 5 mg PO QAM [facility] Stop: 05/15/20 08:59 Last Admin: 04/16/20 08:02 Dose: 5 mg Documented by: Fluticasone Propionate (Flonase) 2 sprays NA DAILY PRN PRN Reason: Allergy Symptoms Stop: 05/14/20 21:24 Fluticasone/Vilanterol (Breo Ellipta 200/25 Mcg Inh) 1 [facility]uffs [facility] Stop: 05/15/20 08:59 Last Admin: 04/16/20 08:04 Dose: 1 puffs Documented by: Folic Acid (Folvite) 1 mg PO QAM [facility] Stop: 05/15/20 08:59 Last Admin: 04/16/20 08:02 Dose: 1 mg Documented by: Furosemide (Lasix) 40 mg PO BID17 [facility] Stop: 05/14/20 21:24 Last Admin: 04/16/20 08:02 Dose: 40 mg Documented by: Gabapentin (Neurontin) 800 mg PO TID [facility] Stop: 05/14/20 21:24 Last Admin: 04/16/20 08:04 Dose: 800 mg Documented by: Glucagon (Glucagen) 1 mg IM UD PRN; Protocol PRN Reason: Hypoglycemia Protocol Stop: 05/14/20 21:59 Glucose (Glucose 40%) 15 - 30 gm PO UD PRN; Protocol PRN Reason: Hypoglycemia Protocol Stop: 05/14/20 21:59 Glucose (Dex4 Glucose) 4 - 8 tabs PO UD PRN; Protocol PRN Reason: Hypoglycemia Protocol Stop: 05/14/20 21:59 Guaifenesin (Mucinex) 600 mg PO Q12H PRN PRN Reason: Congestion Stop: 05/14/20 21:24 Hydroxyzine HCl (Vistaril) 25 mg PO QID PRN PRN Reason: Anxiety Stop: 05/14/20 21:24 Promethazine HCl 12.5 mg/ (Sodium Chloride) 50.5 mls @ 202 mls/hr IV Q6H PRN PRN Reason: Nausea And Vomiting Stop: 05/14/20 21:28 Last Infusion: 04/16/20 03:03 Dose: Infused Documented by: Piperacillin Sod/Tazobactam (Sod 4.5 gm/ Dextrose) 120 mls @ 30 mls/hr IV Q8H [facility]; Protocol Stop: 04/24/20 21:59 Last Infusion: 04/16/20 10:10 Dose: Infused Documented by: Insulin Aspart (Novolog Flexpen) 0 units SC [facility] Stop: 05/14/20 21:24 Last Admin: 04/16/20 08:09 Dose: 11 units Documented by: Isosorbide Mononitrate (Imdur Extended Rel) 30 mg PO [facility] Stop: 05/15/20 08:59 Last Admin: 04/16/20 08:02 Dose: 30 mg Documented by: Lorazepam (Ativan) 0.5 mg PO Q8H PRN PRN Reason: Anxiety Stop: 05/14/20 21:24 Last Admin: 04/15/20 17:54 Dose: 0.5 mg Documented by: Magnesium Oxide (Mag-Ox) 400 mg PO QAM [facility] Stop: 05/15/20 08:59 Last Admin: 04/16/20 08:04 Dose: 400 mg Documented by: Metoprolol Succinate (Toprol Xl) 50 mg PO BID [facility] Stop: 05/14/20 21:24 Last Admin: 04/16/20 08:05 Dose: 50 mg Documented by: Miscellaneous (Remove Nicoderm Patch) 1 ea N/A DAILY@0859 [facility] Stop: 05/15/20 08:58 Last Admin: 04/16/20 08:05 Dose: 1 ea Documented by: Miscellaneous (Carbohydrates For Hypoglycemia) 15 - 30 gm PO UD PRN PRN Reason: Hypoglycemia Treatment Stop: 05/14/20 21:59 Miscellaneous Information (Consult) 1 ea N/A UD PRN PRN Reason: Consult Stop: 05/14/20 15:27 Nicotine (Nicoderm Cq) 21 mg TD DAILY [facility] Stop: 05/14/20 21:34 Last Admin: 04/16/20 08:03 Dose: 21 mg Documented by: Nitroglycerin (Nitrostat) 0.4 mg SL UD PRN PRN Reason: CHEST PAIN Stop: 05/14/20 21:24 Nystatin (Mycostatin) 1 appln EXT TID PRN PRN Reason: Skin Irritation Stop: 05/14/20 21:24 Oxycodone HCl (Roxicodone Immediate Rel) 10 mg PO Q4H PRN PRN Reason: Pain Stop: 04/28/20 21:29 Last Admin: 04/16/20 08:38 Dose: 10 mg Documented by: Pantoprazole Sodium (Protonix) 40 mg PO DAILYBB [facility] Stop: 05/15/20 06:29 Last Admin: 04/16/20 06:10 Dose: 40 mg Documented by: Phenazopyridine HCl (Pyridium) 200 mg PO TID PRN PRN Reason: Dysuria Stop: 05/15/20 13:42 Polyethylene Glycol (Miralax Powder Packet) 17 gm PO DAILY PRN PRN Reason: Constipation Stop: 05/14/20 21:24 Polyethylene Glycol (Miralax Powder Packet) 17 gm PO QAM [facility] Stop: 05/15/20 08:59 Last Admin: 04/16/20 08:04 Dose: 17 gm Documented by: Potassium Chloride (Klor-Con M20) 20 meq PO BID [facility] Stop: 05/14/20 21:24 Last Admin: 04/16/20 08:05 Dose: 20 meq Documented by: Sennosides (Senokot) 8.6 mg PO DAILY PRN PRN Reason: Constipation Stop: 05/14/20 21:24 Spironolactone (Aldactone) 25 mg PO QAM [facility] Stop: 05/15/20 08:59 Last Admin: 04/16/20 08:03 Dose: 25 mg Documented by: Sucralfate (Carafate Tab) 1 gm PO [facility] Stop: 05/14/20 21:24 Last Admin: 04/16/20 11:43 Dose: 1 gm Documented by: Tamsulosin HCl (Flomax) 0.[facility] Stop: 05/15/20 08:59 Last Admin: 04/16/20 08:02 Dose: 0.4 mg Documented by: Umeclidinium [place] (Incruse Ellipta) 1 puffs [facility] Stop: 05/15/20 08:59 Last Admin: 04/16/20 08:04 Dose: 1 puffs Documented by: Warfarin Sodium (Coumadin) 5 mg PO DAILY@1600 [facility] Stop: 05/15/20 15:59 (1) COPD (chronic obstructive pulmonary disease) COPD type: unspecified COPD Qualified Code(s): J44.9 - Chronic obstructive pulmonary disease, unspecified
[2020-04-16] MEDS: WARFARIN SOD 5 MG TAB PO SCH (15:02)
[2020-04-16] MEDS ORDERED: HYDROmorphone INJ 0.5 MG/0.5 ML SYR IV STA (15:37)
--- NOTE | 2020-04-16 16:21 | CT Scan Report ---
CT head/brain wo con CLINICAL HISTORY: 49 years-old Male with r/o bleed. Acute posttraumatic head injury TECHNIQUE: Multiple axial CT images of the head were obtained without contrast. A dose lowering tech nique was utilized adhering to the principles of ALARA. CT DOSE: 884.08 mGy.cm COMPARISON: Head CT 03/21/2020 FINDINGS: No acute intracranial hemorrhage, midline shift, intracranial mass, hydrocephalus, territorial ischem ia or abnormal extra-axial collection. The calvarium is intact. There is near complete opacification of the right maxillary sinus. Moderate mucosal thickening of the right sphenoid sinus and posterior right ethmoid air cells. Partially imag ed polypoid mucosal thickening involves the right nasal turbinate. Small to moderate left mastoid eff usion. Soft tissues and orbits are unremarkable. IMPRESSION: No acute intracranial abnormality or calvarial fracture. ACT 112: Negative or not required by law. The above report was generated using voice recognition software. It may contain grammatical, syntax o r spelling errors. Electronically signed by: Kem Apodaca M.D. 04/16/2020 4:20 PM
[2020-04-16] MEDS ORDERED: SUMAtriptan succinate 50 MG TAB PO STA (19:37)
[2020-04-16] MEDS: AMITRIPTYLINE HCL 50 MG TAB PO SCH (20:24)
[2020-04-16] MEDS: ATORVASTATIN 40 MG TAB PO SCH (20:27)
[2020-04-16] MEDS: DICLOFENAC SOD 1% GEL 100 GM TUBE EXT SCH (20:28)
[2020-04-17] MEDS: LORazepam 0.5 MG TAB PO PRN ×3 (00:15→22:31)
[2020-04-17] MEDS: OXYCODONE HCL IR 5 MG TAB (IMMEDIATE RELEASE) PO PRN ×5 (01:36→21:01)
[2020-04-17] MEDS: PIPERACILLIN/TAZOBACTAM 4.5 GM in DEXTROSE 5% 100 ML IV SCH ×3 (06:25→21:43)
[2020-04-17] MEDS: PANTOprazole 40 MG TAB PO SCH (06:25)
[2020-04-17 07:40] LABS: Prothrombin Time 20.7 Seconds (9.0-12.0)
[2020-04-17 07:59] LABS: Creatinine Clr Calc Pharmacy 129.3 ml/min; Est GFR (African American) 77.9; Est GFR (Non-African American) 67.2
[2020-04-17] MEDS: TAMSULOSIN HCL 0.4 MG CAP PO SCH (08:24)
[2020-04-17] MEDS: MAGNESIUM OXIDE 400 MG TAB PO SCH (08:24)
[2020-04-17] MEDS: CYCLOBENZAPRINE HCL 10 MG TAB PO SCH ×2 (08:24→20:10)
[2020-04-17] MEDS: ASPIRIN 81 MG ECTAB PO SCH (08:24)
[2020-04-17] MEDS: ISOSORBIDE MONO EXTENDED REL 30 MG TABCR PO SCH (08:24)
[2020-04-17] MEDS: DOCUSATE SODIUM 100 MG CAP PO SCH ×2 (08:24→20:10)
[2020-04-17] MEDS: FINASTERIDE 5 MG TAB PO SCH (08:25)
[2020-04-17] MEDS: FUROSEMIDE 40 MG TAB PO SCH ×2 (08:25→17:16)
[2020-04-17] MEDS: SPIRONOLACTONE 25 MG TAB PO SCH (08:25)
[2020-04-17] MEDS: DULOXETINE HCL 60 MG CAP PO SCH (08:25)
[2020-04-17] MEDS: GABAPENTIN 800 MG TAB PO SCH ×3 (08:25→20:10)
[2020-04-17] MEDS: POTASSIUM CHLORIDE 20 MEQ TABCR PO SCH ×2 (08:25→20:11)
[2020-04-17] MEDS: UMECLIDINIUM BROMIDE 62.5MCG/BLISTER 7 PUFFS/INHALER INH SCH (08:25)
[2020-04-17] MEDS: NICOTINE 21 MG/24 HR TDSY TD SCH (08:26)
[2020-04-17] MEDS: POLYETHYLENE (MIRALAX) 17 GM PACK PO SCH (08:26)
[2020-04-17] MEDS: FOLIC ACID 1 MG TAB PO SCH (08:26)
[2020-04-17] MEDS: SUCRALFATE 1 GM TAB PO SCH ×4 (08:26→20:10)
[2020-04-17] MEDS: DICLOFENAC SOD 1% GEL 100 GM TUBE EXT SCH ×2 (08:27→20:11)
[2020-04-17] MEDS: FLUTICASONE/VILANTEROL 200/25MCG 14 PUFFS/INHALER INH SCH (08:27)
[2020-04-17] MEDS: INSULIN ASPART 100 UNITS/ML 3 ML PEN SC SCH ×4 (08:29→20:17)
[2020-04-17] MEDS: METOPROLOL SUCC 50MG EXT REL TAB PO SCH ×2 (09:00→20:10)
[2020-04-17] MEDS: WARFARIN SOD 5 MG TAB PO SCH (15:52)
--- NOTE | 2020-04-17 16:12 | Electrocardiogram Report ---
Test Reason : Blood Pressure : / mmHG Vent. Rate : 092 BPM Atrial Rate : 092 BPM P-R Int : 148 ms QRS Dur : 104 ms QT Int : 346 ms P-R-T Axes : 069 036 038 degrees QTc Int : 427 ms Normal sinus rhythm Normal ECG When compared with ECG of 21-MAR-2020 13:35, Nonspecific T wave abnormality no longer evident in Lateral leads Confirmed by Christian Cunningham ([id number]) on 04/17/2020 4:11:58 PM Referred By: Roberto Askew Confirmed By:Christian Cunningham
--- NOTE | 2020-04-17 17:08 | Hospitalist Progress Note ---
Date of Service April 17, 2020 Assessment & Plan (1) Catheter-associated urinary tract infection: Recurrent catheter associated urinary tract infection Received Macrobid and Bactrim secondary to enterococcus infection as outpatient Urine Cx:pending Blood Cx:no growth to date Continue Zosyn for now Lloyd catheter changed Phenazopyridine PRN (2) Supratherapeutic INR: H/O Pulmonary embolism INR:6.0 >>2.0 Received Vit K Continue Coumadin Monitor INR (3) Peripheral neuropathy: Likely due to Diabetes On Gabapentin (4) Morbid obesity: BMI:60.8 (5) DM type 2 (diabetes mellitus, type 2): Hold oral diabetes medications SSI while hospitalized (6) Chronic right heart failure: Continue Lasix, Aldactone Monitor volume status (7) COPD (chronic obstructive pulmonary disease): No signs of exacerbation Continue home inhalers Nebs PRN (8) Chronic pain: H/O Chronic pain with narcotic dependence Chronic Right foot nonunion fracture deformity Pain control Ortho as outpatient DVT Px: Coumadin CODE STATUS Full Code Admission and Anticipated Discharge Date Admission Date: April 14, 2020 Subjective Patient is seen and examined at bedside Reports chronic pain Afebrile today No significant dysuria today INR 2.0 Today Offers no other complaints Review of Systems Review of Systems: All systems reviewed & are unremarkable except as noted in HPI & below Physical Exam Physical Exam: Physical Exam: Vitals signs as noted above General Appearance:Morbidly obese, no apparent distress Head: normocephalic, Atraumatic Eyes: normal inspection, EOMI Neck: supple, Trachea midline Respiratory/Chest: Normal breath sounds, Scattered wheezes, No accessory muscle use Cardiovascular: S1, S2, No murmur Abdomen/GI:Soft, Non tender, Bowel sounds present Extremities/Musculoskelatal:normal inspection, + B/L LE edema Neurologic/Psych:AAOX3, grossly no focal neurological deficits Skin: normal color, warm Results & Data Results & Data [facility]) Vital Signs (Past 12 Hours) Vital Signs Temp Pulse Resp BP Pulse Ox 04/17/20 15:58 36.5 C 78 20 99/58 L 92 04/17/20 07:00 36.5 C 71 20 115/69 92 Laboratory Results BMP 04/17/20 06:36 Creatinine 1.25 (1) COPD (chronic obstructive pulmonary disease) COPD type: unspecified COPD Qualified Code(s): J44.9 - Chronic obstructive pulmonary disease, unspecified
[2020-04-17] MEDS: AMITRIPTYLINE HCL 50 MG TAB PO SCH (20:10)
[2020-04-17] MEDS: ATORVASTATIN 40 MG TAB PO SCH (20:10)
[2020-04-17] MEDS: POLYETHYLENE (MIRALAX) 17 GM PACK PO PRN (20:16)
[2020-04-18] MEDS: OXYCODONE HCL IR 5 MG TAB (IMMEDIATE RELEASE) PO PRN ×6 (01:39→21:45)
[2020-04-18] MEDS: PANTOprazole 40 MG TAB PO SCH (05:32)
[2020-04-18] MEDS: PIPERACILLIN/TAZOBACTAM 4.5 GM in DEXTROSE 5% 100 ML IV SCH ×3 (05:40→21:45)
[2020-04-18 06:11] LABS: Hematocrit (blood only) 37.7 % (42-52); Hemoglobin 11.4 g/dL (14.0-18.0); Mean Corpuscular Hemoglobin 22.4 pg (25-34); Mean Corpuscular Hgb Conc 30.2 g/dL (32-36); Mean Corpuscular Volume 74.1 fL (80-100); Mean Platelet Volume 9.7 fL (7.4-10.4); Platelet Count 309 K/uL (130-400); RDW Coefficient of Variation 19.3 % (11.5-14.5); RDW Standard Deviation 52.1 fL (36.4-46.3); Red Blood Count 5.09 M/uL (4.7-6.1); White Blood Count 11.01 K/uL (4.8-10.8)
[2020-04-18 06:22] LABS: INR 1.6 (0.9-1.1); Prothrombin Time 16.9 Seconds (9.0-12.0)
[2020-04-18 06:47] LABS: Creatinine Clr Calc Pharmacy 143.1 ml/min; Est GFR (Non-African American) 75.9
[2020-04-18] MEDS: POTASSIUM CHLORIDE 20 MEQ TABCR PO SCH ×2 (08:44→20:25)
[2020-04-18] MEDS: METOPROLOL SUCC 50MG EXT REL TAB PO SCH ×2 (08:45→20:26)
[2020-04-18] MEDS: SUCRALFATE 1 GM TAB PO SCH ×4 (08:46→20:25)
[2020-04-18] MEDS: DULOXETINE HCL 60 MG CAP PO SCH (08:47)
[2020-04-18] MEDS: MAGNESIUM OXIDE 400 MG TAB PO SCH (08:47)
[2020-04-18] MEDS: ASPIRIN 81 MG ECTAB PO SCH (08:47)
[2020-04-18] MEDS: FUROSEMIDE 40 MG TAB PO SCH ×2 (08:47→17:45)
[2020-04-18] MEDS: TAMSULOSIN HCL 0.4 MG CAP PO SCH (08:47)
[2020-04-18] MEDS: FOLIC ACID 1 MG TAB PO SCH (08:47)
[2020-04-18] MEDS: CYCLOBENZAPRINE HCL 10 MG TAB PO SCH ×2 (08:48→20:25)
[2020-04-18] MEDS: FINASTERIDE 5 MG TAB PO SCH (08:49)
[2020-04-18] MEDS: ISOSORBIDE MONO EXTENDED REL 30 MG TABCR PO SCH (08:49)
[2020-04-18] MEDS: SPIRONOLACTONE 25 MG TAB PO SCH (08:49)
[2020-04-18] MEDS: DOCUSATE SODIUM 100 MG CAP PO SCH ×2 (08:50→20:25)
[2020-04-18] MEDS: FLUTICASONE/VILANTEROL 200/25MCG 14 PUFFS/INHALER INH SCH (08:50)
[2020-04-18] MEDS: UMECLIDINIUM BROMIDE 62.5MCG/BLISTER 7 PUFFS/INHALER INH SCH (08:50)
[2020-04-18] MEDS: GABAPENTIN 800 MG TAB PO SCH ×3 (08:51→20:25)
[2020-04-18] MEDS: POLYETHYLENE (MIRALAX) 17 GM PACK PO SCH (08:52)
[2020-04-18] MEDS: NICOTINE 21 MG/24 HR TDSY TD SCH (08:52)
[2020-04-18] MEDS: DICLOFENAC SOD 1% GEL 100 GM TUBE EXT SCH ×2 (08:55→20:26)
[2020-04-18] MEDS: INSULIN ASPART 100 UNITS/ML 3 ML PEN SC SCH ×4 (08:55→20:44)
[2020-04-18] MEDS: PROMETHAZINE HCL 12.5 MG in SODIUM CHLORIDE 0.9% 50 ML IV PRN (12:13)
[2020-04-18] MEDS: LORazepam 0.5 MG TAB PO PRN ×2 (12:14→23:29)
[2020-04-18] MEDS ORDERED: HYDROmorphone INJ 0.5 MG/0.5 ML SYR IV ONE (13:21)
--- NOTE | 2020-04-18 14:37 | XRay Report ---
XR chest 2V PA/lateral HISTORY: 49 years-old Male cough acute cough COMPARISON: Chest radiograph 04/14/2020 TECHNIQUE: PA and lateral views of the chest FINDINGS: Cardiac silhouette is mildly enlarged. No pneumothorax, overt pulmonary edema or large pleural effusi on. There is mild blunting of the lateral costophrenic angles which appears unchanged. Mild linear márquez bsegmental left basilar opacities. Bones appear grossly intact. IMPRESSION: Minimal left basilar atelectasis without acute process. ACT 112: Negative or not required by law. The above report was generated using voice recognition software. It may contain grammatical, syntax o r spelling errors. Electronically signed by: Kem Apodaca M.D. 04/18/2020 2:36 PM
--- NOTE | 2020-04-18 15:25 | CT Scan Report ---
CT SCAN OF THE ABDOMEN AND PELVIS WITHOUT CONTRAST CLINICAL HISTORY: Right abdominal pain COMPARISON STUDY: 03/17/2020 TECHNIQUE: CT scan of the abdomen and pelvis was performed from the lung bases to the proximal femurs . Images are reviewed in the axial, sagittal, and coronal planes. IV contrast was not administered fo r this examination. A dose lowering technique was utilized adhering to the principles of ALARA. CT DOSE: 2062.09 mGy.cm FINDINGS: Lower chest: There are basilar atelectatic changes. Liver: There is hepatic steatosis. No focal masses are visualized. Gallbladder: Unremarkable. Spleen: Normal in size and attenuation. Pancreas: Unremarkable. Adrenal glands: Unremarkable. Kidneys: There is a nonobstructing 4 mm right renal calculus. There is no hydronephrosis Bowel: There are no transition zones indicate bowel obstruction. There is no evidence of acute divert iculitis. The appendix is not visualized and is presumed surgically absent. Peritoneum: There is no intraperitoneal free air or abdominal ascites. Vasculature: The abdominal aorta is normal in course and caliber. Adenopathy: None. Pelvic viscera: There is an indwelling Lloyd catheter. Skeletal structures: No destructive osseous lesions are seen. IMPRESSION: 1. No acute intra-abdominal findings 2. Nonobstructing right renal calculus 3. Hepatic steatosis 4. No evidence of bowel obstruction. No evidence of free air 5. No acute inflammatory changes ACT 112: Negative or not required by law. Electronically signed by: Luis Castro M.D. 04/18/2020 3:23 PM
[2020-04-18] MEDS: WARFARIN SOD 5 MG TAB PO SCH (15:32)
[2020-04-18] MEDS ORDERED: WARFARIN SOD 2 MG TAB PO ONE (16:56)
--- NOTE | 2020-04-18 17:00 | Hospitalist Progress Note ---
Date of Service April 18, 2020 Assessment & Plan (1) Catheter-associated urinary tract infection: Recurrent catheter associated urinary tract infection Received Macrobid and Bactrim secondary to enterococcus infection as outpatient Urine Cx:Long Chain Beamer species Blood Cx:no growth to date Continue Zosyn for now Lloyd catheter changed Phenazopyridine PRN No signs of sepsis (2) Supratherapeutic INR: H/O Pulmonary embolism INR:6.0 >>2.0>>1.6 Received Vit K Continue Coumadin Monitor INR Will increase Coumadin to 7 mg today (3) Peripheral neuropathy: Likely due to Diabetes On Gabapentin (4) Morbid obesity: BMI:60.8 (5) DM type 2 (diabetes mellitus, type 2): Hold oral diabetes medications SSI while hospitalized (6) Chronic right heart failure: Continue Lasix, Aldactone Monitor volume status (7) COPD (chronic obstructive pulmonary disease): No signs of exacerbation Continue home inhalers Nebs PRN (8) Chronic pain: H/O Chronic pain with narcotic dependence Chronic Right foot nonunion fracture deformity CT ABD:No acute intra-abdominal findings. Nonobstructing right renal calculus. Hepatic steatosis. No evidence of bowel obstruction. No evidence of free air. No acute inflammatory changes. Pain control Ortho as outpatient DVT Px: Coumadin CODE STATUS Full Code Admission and Anticipated Discharge Date Admission Date: April 14, 2020 Subjective Patient is seen and examined at bedside Reports mild cough, right lower quadrant abdominal discomfort Offers no other complaints Imaging studies showed no acute process Review of Systems Review of Systems: All systems reviewed & are unremarkable except as noted in HPI & below Physical Exam Physical Exam: Physical Exam: Vitals signs as noted above General Appearance:Morbidly obese, no apparent distress Head: normocephalic, Atraumatic Eyes: normal inspection, EOMI Neck: supple, Trachea midline Respiratory/Chest: Normal breath sounds, Scattered wheezes, No accessory muscle use Cardiovascular: S1, S2, No murmur Abdomen/GI:Soft, Non tender, Bowel sounds present Extremities/Musculoskelatal:normal inspection, + B/L LE edema Neurologic/Psych:AAOX3, grossly no focal neurological deficits Skin: normal color, warm Results & Data Results & Data ([facility]) Vital Signs (Past 12 Hours) Vital Signs Temp Pulse Resp BP Pulse Ox 04/18/20 16:15 76 20 95 04/18/20 07:56 36.5 C 73 16 101/61 93 Laboratory Results Short CBC 04/18/20 Range/Units 05:52 WBC 11.01 H (4.8-10.8) K/uL Hgb 11.4 L (14.0-18.0) g/dL Hct 37.7 L (42-52) % Plt Count 309 (130-400) K/uL BMP 04/18/20 05:52 Creatinine 1.13 (1) COPD (chronic obstructive pulmonary disease) COPD type: unspecified COPD Qualified Code(s): J44.9 - Chronic obstructive pulmonary disease, unspecified
[2020-04-18] MEDS: ATORVASTATIN 40 MG TAB PO SCH (20:25)
[2020-04-18] MEDS: AMITRIPTYLINE HCL 50 MG TAB PO SCH (20:25)
[2020-04-18] MEDS: POLYETHYLENE (MIRALAX) 17 GM PACK PO PRN (22:56)
[2020-04-19] MEDS: PANTOprazole 40 MG TAB PO SCH (06:09)
[2020-04-19] MEDS: PIPERACILLIN/TAZOBACTAM 4.5 GM in DEXTROSE 5% 100 ML IV SCH (06:10)
[2020-04-19] MEDS: OXYCODONE HCL IR 5 MG TAB (IMMEDIATE RELEASE) PO PRN ×3 (06:18→13:37)
[2020-04-19 07:50] LABS: INR 1.4 (0.9-1.1); Prothrombin Time 14.3 Seconds (9.0-12.0)
[2020-04-19 08:10] LABS: BUN Creatinine Ratio 10.4 (10-20); Calcium 9.2 mg/dl (8.5-10.1); Creatinine Clr Calc Pharmacy 131.4 ml/min; Est GFR (African American) 79.4; Est GFR (Non-African American) 68.5; Potassium 3.9 mmol/L (3.5-5.1)
[2020-04-19] MEDS: FLUTICASONE/VILANTEROL 200/25MCG 14 PUFFS/INHALER INH SCH (08:39)
[2020-04-19] MEDS: UMECLIDINIUM BROMIDE 62.5MCG/BLISTER 7 PUFFS/INHALER INH SCH (08:39)
[2020-04-19] MEDS: NICOTINE 21 MG/24 HR TDSY TD SCH (08:40)
[2020-04-19] MEDS: SUCRALFATE 1 GM TAB PO SCH ×2 (08:42→12:08)
[2020-04-19] MEDS: ASPIRIN 81 MG ECTAB PO SCH (08:42)
[2020-04-19] MEDS: SPIRONOLACTONE 25 MG TAB PO SCH (08:42)
[2020-04-19] MEDS: TAMSULOSIN HCL 0.4 MG CAP PO SCH (08:42)
[2020-04-19] MEDS: FUROSEMIDE 40 MG TAB PO SCH (08:42)
[2020-04-19] MEDS: DOCUSATE SODIUM 100 MG CAP PO SCH (08:42)
[2020-04-19] MEDS: METOPROLOL SUCC 50MG EXT REL TAB PO SCH (08:42)
[2020-04-19] MEDS: FINASTERIDE 5 MG TAB PO SCH (08:42)
[2020-04-19] MEDS: MAGNESIUM OXIDE 400 MG TAB PO SCH (08:42)
[2020-04-19] MEDS: FOLIC ACID 1 MG TAB PO SCH (08:43)
[2020-04-19] MEDS: CYCLOBENZAPRINE HCL 10 MG TAB PO SCH (08:43)
[2020-04-19] MEDS: ISOSORBIDE MONO EXTENDED REL 30 MG TABCR PO SCH (08:43)
[2020-04-19] MEDS: POTASSIUM CHLORIDE 20 MEQ TABCR PO SCH (08:43)
[2020-04-19] MEDS: GABAPENTIN 800 MG TAB PO SCH ×2 (08:43→13:07)
[2020-04-19] MEDS: DULOXETINE HCL 60 MG CAP PO SCH (08:43)
[2020-04-19] MEDS: DICLOFENAC SOD 1% GEL 100 GM TUBE EXT SCH (08:44)
[2020-04-19] MEDS: POLYETHYLENE (MIRALAX) 17 GM PACK PO SCH (08:44)
[2020-04-19] MEDS: INSULIN ASPART 100 UNITS/ML 3 ML PEN SC SCH ×2 (09:38→13:14)
[2020-04-19] MEDS: LORazepam 0.5 MG TAB PO PRN (10:24)
[2020-04-19] MEDS: PROMETHAZINE HCL 12.5 MG in SODIUM CHLORIDE 0.9% 50 ML IV PRN (12:08)
--- NOTE | 2020-04-19 12:58 | Hospitalist Progress Note ---
Date of Service April 19, 2020 Assessment & Plan (1) Catheter-associated urinary tract infection: Recurrent catheter associated urinary tract infection Received Macrobid and Bactrim secondary to enterococcus infection as outpatient Urine Cx:Lot Associate species Blood Cx:no growth to date Received Zosyn for 5 days Lloyd catheter changed Phenazopyridine PRN No signs of sepsis Plan to discharge on p.o. antibiotics to complete the course. (2) Supratherapeutic INR: H/O Pulmonary embolism INR:6.0 >>2.0>>1.4 Received Vit K Continue Coumadin Monitor INR Increased Coumadin to 7.5 mg today (3) Peripheral neuropathy: Likely due to Diabetes On Gabapentin (4) Morbid obesity: BMI:60.8 (5) DM type 2 (diabetes mellitus, type 2): Hold oral diabetes medications SSI while hospitalized (6) Chronic right heart failure: Continue Lasix, Aldactone Monitor volume status (7) COPD (chronic obstructive pulmonary disease): No signs of exacerbation Continue home inhalers Nebs PRN (8) Chronic pain: H/O Chronic pain with narcotic dependence Chronic Right foot nonunion fracture deformity CT ABD:No acute intra-abdominal findings. Nonobstructing right renal calculus. Hepatic steatosis. No evidence of bowel obstruction. No evidence of free air. No acute inflammatory changes. Pain control Ortho as outpatient DVT Px: Coumadin CODE STATUS Full Code Admission and Anticipated Discharge Date Admission Date: April 14, 2020 Subjective Patient is seen and examined at bedside Doing much better today Feels tired No other complaints Denies any chest pain, shortness of breath, dizziness, nausea, abdominal pain. Review of Systems Review of Systems: All systems reviewed & are unremarkable except as noted in HPI & below Physical Exam Physical Exam: Physical Exam: Vitals signs as noted above General Appearance:Morbidly obese, no apparent distress Head: normocephalic, Atraumatic Eyes: normal inspection, EOMI Neck: supple, Trachea midline Respiratory/Chest: Normal breath sounds, Scattered wheezes, No accessory muscle use Cardiovascular: S1, S2, No murmur Abdomen/GI:Soft, Non tender, Bowel sounds present Extremities/Musculoskelatal:normal inspection, + B/L LE edema Neurologic/Psych:AAOX3, grossly no focal neurological deficits Skin: normal color, warm Results & Data Results & Data ([facility]) Vital Signs (Past 12 Hours) Vital Signs Temp Pulse Resp BP Pulse Ox 04/19/20 07:25 36.4 C L 65 15 112/72 91 Laboratory Results BMP 04/19/20 07:23 Sodium 138 Potassium 3.9 Chloride 104 Carbon Dioxide 30 BUN 13 Creatinine 1.23 Glucose 138 H Calcium 9.2 (1) COPD (chronic obstructive pulmonary disease) COPD type: unspecified COPD Qualified Code(s): J44.9 - Chronic obstructive pulmonary disease, unspecified
--- NOTE | 2020-04-19 13:15 | Discharge Summary ---
Date of Service April 19, 2020 Admission HPI Per Admitting Provider CHIEF COMPLAINT: Urinary symptoms. HISTORY OF PRESENT ILLNESS: This is a 49-year-old male with past medical history significant for right-sided heart failure, history of PE, on Coumadin, hypertension, COPD, chronic pain with opiate dependence, mood disorder, tobacco abuse, history of ESBL UTI, history of sepsis secondary to urinary tract infection, anemia, morbid obesity, noncompliant with medication and frequent hospitalizations. The patient also has history of traumatic subdural hematoma and subarachnoid hematoma in setting of Coumadin use and was admitted to [facility] from 11/18/2019-12/04/2019. He was also treated for CHF and UTI and Coumadin was restarted. He has chronic indwelling Lloyd catheter. He has a history of infection with enterococcus UTI. The patient was recently in the hospital and was discharged on 03/26/20. At that time also he was admitted for catheter associated urinary tract infection. The patient has a followup appointment with his PCP on 04/10/2020, at that time he complained of urinary symptoms and cultures were drawn, which was growing again enterococcus and Enterobacter. The patient states after he saw his family doctor, he came home and was felt tired and slept for the whole day and he feels like he is having low grade temperatures, abdominal discomfort, has chronic chest pains, and chronic shortness of breath on exertion, chronic back pains. He has swelling in the legs, the same as before, they did not worsen. He has some superficial wounds on the right sandhu. He says he has some right foot pain because he rolled over on the leg and is requesting for x-ray of the foot. Currently hemodynamics are stable. Denies any headache, no runny nose, no sore throat. Has chronic cough. He has loss of sense of smell or taste. He complained this in last admission too and COVID was negative and the COVID was again checked today in the ER, it was negative. Appetite is okay. No dysphagia. No rash seen. Admission Exam Per Admitting Provider PHYSICAL EXAMINATION: GENERAL: The patient is alert and oriented, not in acute distress. VITAL SIGNS: Temperature 37.4, pulse 95, respiratory rate 13, blood pressure 108/74, oxygen 96% on room air. HEENT: No pallor, no icterus. Extraocular muscles intact. NECK: No JVD, no neck masses. CARDIOVASCULAR: S1, S2 heard, regular rate and rhythm, no murmur, no gallop. RESPIRATORY SYSTEM: Normal AP diameter. No accessory muscle use. No wheezing, no crackles. ABDOMEN: Soft, bowel sounds present, nontender. No distention. CENTRAL NERVOUS SYSTEM: Cranial nerves II-XII grossly intact. Nonfocal. EXTREMITIES: Lower extremity edema present with some superficial wound in the right sandhu seen. Dry skin seen. Principal Diagnosis Catheter-associated urinary tract infection Discharge Data Allergies Allergy/AdvReac Type Severity Reaction Status Date / Time fentanyl Allergy Intermediate RASH/HIVES/SKIN Verified 04/14/20 15:06 REDNESS naloxone AdvReac Severe extremely Verified 04/14/20 15:06 sick acetaminophen AdvReac Intermediate Unknown Verified 04/14/20 15:06 ibuprofen AdvReac Intermediate Nausea Verified 04/14/20 15:06 valproic acid AdvReac Intermediate PANCREATITS Verified 04/14/20 15:06 Consultations 04/14/20 18:07 ED Decision to Admit Stat 04/14/20 21:25 Consult Case Management - Discharge Planning Routine Procedures Performed ct abd: 1. No acute intra-abdominal findings 2. Nonobstructing right renal calculus 3. Hepatic steatosis 4. No evidence of bowel obstruction. No evidence of free air 5. No acute inflammatory changes CT Head: No acute intracranial abnormality or calvarial fracture. CXR: Minimal left basilar atelectasis without acute process. Ordered Studies 04/16/20 15:20 CT head/brain wo con Urgent 04/18/20 12:00 CT abd pelvis wo con Routine Hospital Course (1) Catheter-associated urinary tract infection: Recurrent catheter associated urinary tract infection Received Macrobid and Bactrim secondary to enterococcus infection as outpatient Urine Cx:Spinner Operator species Blood Cx:no growth to date Received Zosyn for 5 days Lloyd catheter changed Phenazopyridine PRN No signs of sepsis Plan to discharge on p.o. antibiotics to complete the course. (2) Supratherapeutic INR: H/O Pulmonary embolism INR:6.0 >>2.0>>1.4 Received Vit K Continue Coumadin Monitor INR Increased Coumadin to 7.5 mg today (3) Peripheral neuropathy: Likely due to Diabetes On Gabapentin (4) Morbid obesity: BMI:60.8 (5) DM type 2 (diabetes mellitus, type 2): Hold oral diabetes medications SSI while hospitalized (6) Chronic right heart failure: Continue Lasix, Aldactone Monitor volume status (7) COPD (chronic obstructive pulmonary disease): No signs of exacerbation Continue home inhalers Nebs PRN (8) Chronic pain: H/O Chronic pain with narcotic dependence Chronic Right foot nonunion fracture deformity CT ABD:No acute intra-abdominal findings. Nonobstructing right renal calculus. Hepatic steatosis. No evidence of bowel obstruction. No evidence of free air. No acute inflammatory changes. Pain control Ortho as outpatient DVT Px: Coumadin CODE STATUS Full Code Total Time Total Time Spent Total Time Spent (In Minutes): 45 minutes Discharge Plan Discharge Items Patient Disposition: Home - Self-Care Reason For Visit: CATHETER ASSOCIATED UTI,CHEST PAIN,COUGH,SOB Discharge Diagnosis: Catheter-associated urinary tract infection Activity: Resume your previous activity Exercise/Sports: Gradually increase as tolerated Non-emergency contact: Primary Care Provider Call non-emergency contact if: you have any medication questions, your symptoms worsen, your pain is not controlled, your pain is worsening, your pain is unusual for you and your pain is concerning for you Follow-up/Referrals: Roberto Askew MD [Primary Care Provider] - 04/22/20 11:00 am (04/22/2020 11:00 AM Provider Madina Pollock MD Department General Internal Medicine [facility] ) Diet: Carb Consistent or DM2 and Heart Healthy Addtl Attending Provider Instructions: Follow-up with Dr. Askew on Apr 22, 2020 at 11AM as scheduled Follow up with Coumadin clinic for management of PT/INR and Coumadin dosing. Complete antibiotic course as prescribed. (Ciprofloxacin 500 mg twice a day for 4 more days) Your blood cultures are pending at the time of discharge. Follow-up with your physician for results. Seek immediate medical attention if your symptoms reoccur or worsen Pending Studies at Discharge: Yes Studies:: Blood Cultures Stand-Alone Forms: [employer], Smoking Cessation Medications and DC Order Prescriptions: New ciprofloxacin HCl 500 mg Tablet 500 mg PO BID Qty: 8 RF: 0 Continued duloxetine 20 mg capsule,delayed release(DR/EC) 60 mg PO QAM 30 Days Qty: 90 RF: 0 polyethylene glycol 3350 [Miralax] 17 gram powder in packet 17 g PO QAM RF: 0 nitroglycerin [Nitrostat] 0.4 mg tablet, sublingual 0.4 mg Sublingual DIRECTED PRN (Reason: CHEST PAIN) RF: 0 nystatin 100,000 unit/gram Powder 1 applic TOPICAL TID PRN (Reason: Skin Irritation) RF: 0 cyclobenzaprine 10 mg Tablet 10 mg PO BID RF: 0 ipratropium-albuterol 0.5 mg-3 mg(2.5 mg base)/3 mL Solution For Nebulization 3 ml INHALATION Q6H PRN (Reason: Shortness Of Breath Or Wheezing) RF: 0 magnesium oxide 400 mg (241.3 mg magnesium) Tablet 400 mg PO QAM RF: 0 docusate sodium 100 mg Capsule 100 mg PO BID RF: 0 Lactinex 1 million cell Tablet,Chewable 1 tab PO BID RF: 0 hydroxyzine HCl 25 mg tablet 25 mg PO QID PRN (Reason: Anxiety) RF: 0 fluticasone propionate 50 mcg/actuation spray,suspension 2 spray Intranasal DAILY PRN (Reason: Allergy Symptoms) RF: 0 aspirin [Ecotrin Low Strength] 81 mg tablet,delayed release (DR/EC) 81 mg PO QAM RF: 0 Spiriva with HandiHaler 18 mcg capsule, w/inhalation device 1 puff inhalation QAM RF: 0 finasteride 5 mg tablet 5 mg PO QAM RF: 0 tamsulosin [Flomax] 0.4 mg Capsule 0.4 mg PO QAM RF: 0 metoprolol succinate 50 mg Tablet Extended Release 24 Hr 50 mg PO BID RF: 0 isosorbide mononitrate 30 mg Tablet Extended Release 24 Hr 30 mg PO QAM RF: 0 spironolactone 25 mg Tablet 25 mg PO QAM RF: 0 Breo Ellipta 200-25 mcg/dose Blister With Device 1 inh INHALATION QAM RF: 0 glipizide 5 mg tablet 5 mg PO BID Qty: 60 RF: 1 atorvastatin 80 mg tablet 80 mg PO QPM RF: 0 sennosides [senna] 8.6 mg Tablet 8.6 mg PO DAILY PRN (Reason: Constipation) RF: 0 folic acid 1 mg Tablet 1 mg PO QAM RF: 0 furosemide [Lasix] 40 mg tablet 40 mg PO BID RF: 0 lorazepam 0.5 mg tablet 0.5 mg PO Q8H PRN (Reason: Anxiety) RF: 0 Combivent Respimat 20-100 mcg/actuation Mist 1 puff INHALATION QID RF: 0 warfarin [Coumadin] 5 mg Tablet 5 mg PO DAILY RF: 0 potassium chloride 20 mEq Tablet Extended Release 20 meq PO BID RF: 0 amitriptyline 50 mg Tablet 50 mg PO HS RF: 0 albuterol sulfate 90 mcg/actuation Hfa Aerosol Inhaler 2 puff INHALATION Q4 PRN (Reason: Dyspnea) RF: 0 gabapentin [Neurontin] 800 mg tablet 800 mg PO TID 30 Days Qty: 90 RF: 0 urea 20 % Cream 1 applic TOPICAL BID PRN (Reason: Skin Irritation) RF: 0 sucralfate [Carafate] 1 gram Tablet 1 g PO ACHS RF: 0 ondansetron HCl [Zofran] 4 mg Tablet 4 mg PO Q4H PRN (Reason: Nausea And Vomiting) RF: 0 omeprazole 20 mg Capsule,Delayed Release(Dr/Ec) 20 mg PO DAILYBB RF: 0 guaifenesin [Mucinex] 600 mg Tablet Extended Release 12hr 600 mg PO Q12H PRN (Reason: Congestion) RF: 0 oxycodone 5 mg tablet 10 mg PO Q4H PRN (Reason: Pain) Qty: 10 RF: 0 Discontinued nitrofurantoin monohyd/m-cryst 100 mg Capsule 100 mg PO BID RF: 0 Discharge Orders: Discharge Order (Routine); Ordered 04/19/20 Ordered By: Dipesh Pickering/Other Patient Handouts: Managing Type 2 Diabetes, Diabetes: Meal Planning, Glipizide tablets Admission Data Admit Date/Time: 04/14/20 19:05 Attending Provider: Dipesh Wright Admit Provider: Everardo Ibarra Primary Care Provider: Roberto Askew Other Providers: Augustus Vasquez Other Interventions: Discharge Summary Assessment (RN) Last Done: 04/19/20 13:22 DC Date/Time DO NOT enter until pt leaves facility: 04/19/20 14:07
[2020-04-19] MEDS ORDERED: WARFARIN SOD 7.5 MG TAB PO SCH (16:00)
[2020-04-19] MEDS ORDERED: CIPROFLOXACIN 500 MG TAB PO SCH (21:00)
== END 2020-04-19 14:07 | disposition home health service (06) | DRG 699 ==
LOC: ED 12:36 → SUATTDRO 19:05 → 2N 19:05 → 3W 04-18 22:12

== ENCOUNTER 2020-05-30 18:16 | Inpatient (IN) ==
[2020-05-30] MEDS ORDERED: SODIUM CHLORIDE 0.9% 1000ML 500 ML IV ONE (18:43)
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
[2020-05-30 19:04] LABS: Basophils # (auto) 0.05 K/uL (0-0.2); Basophils % (auto) 0.4 %; Eosinophils # (auto) 0.36 K/uL (0-0.5); Eosinophils % (auto) 2.8 %; Hemoglobin 12.3 g/dL (14.0-18.0); Immature Granulocytes # (auto) 0.03 K/uL (0.00-0.02); Immature Granulocytes % (auto) 0.2 %; Lymphocytes # (auto) 3.03 K/uL (1.2-3.4); Lymphocytes % (auto) 23.9 %; Mean Corpuscular Hemoglobin 22.8 pg (25-34); Mean Corpuscular Hgb Conc 30.8 g/dL (32-36); Mean Corpuscular Volume 74.1 fL (80-100); Mean Platelet Volume 9.6 fL (7.4-10.4); Monocytes # (auto) 0.89 K/uL (0.11-0.59); Neutrophils # (auto) 8.31 K/uL (1.4-6.5); Neutrophils % (auto) 65.7 %; Platelet Count 312 K/uL (130-400); RDW Coefficient of Variation 20.6 % (11.5-14.5); RDW Standard Deviation 55.9 fL (36.4-46.3); White Blood Count 12.67 K/uL (4.8-10.8)
--- NOTE | 2020-05-30 19:17 | XRay Report ---
XR chest 1V portable HISTORY: Atypical chest pain. COMPARISON: Chest 04/18/2020. FINDINGS: The heart remains mildly enlarged. There are low lung volumes. No pleural effusions. No pne umothorax. Prominence of interstitial markings is likely technical due to the patient's body habitus. No evidence for pulmonary edema. No new focal lung consolidations to suggest pneumonia. Old, healed left clavicle fracture. IMPRESSION: No significant change compared to the prior study. No acute process. Stable mild cardiomegaly. ACT 112: Negative or not required by law. Electronically signed by: Vidal Keller M.D. 05/30/2020 7:16 PM
[2020-05-30 19:22] LABS: Alanine Aminotransferase 18 U/L (12-78); Aspartate Aminotransferase 17 U/L (15-37); BUN Creatinine Ratio 6.7 (10-20); Blood Urea Nitrogen 8 mg/dl (7-18); Calcium 9.3 mg/dl (8.5-10.1); Carbon Dioxide 28 mmol/L (21-32); Chloride 104 mmol/L (98-107); Est GFR (Non-African American) 75.1; Glucose 142 mg/dl (70-99); Potassium 3.8 mmol/L (3.5-5.1); Sodium 138 mmol/L (136-145)
[2020-05-30 19:25] LABS: Prothrombin Time 59.4 Seconds (9.0-12.0)
[2020-05-30 19:26] LABS: Albumin Globulin Ratio 0.7 (0.9-2); Alkaline Phosphatase 136 U/L (45-117); Bilirubin,Total 0.4 mg/dl (0.2-1); Globulin 4.5 gm/dl (2.5-4.0); Total Protein 7.5 gm/dl (6.4-8.2); Troponin I < 0.015 ng/ml (0-0.045)
[2020-05-30 19:34] LABS: Anisocytosis Present
[2020-05-30] MEDS ORDERED: ASPIRIN CHEW 324 MG PO STA (19:35)
[2020-05-30] MEDS ORDERED: NITROGLYCERIN SL 0.4 MG/TAB TAB SL PRN ×2 (19:35→21:55)
[2020-05-30] MEDS ORDERED: OXYCODONE HCL 10 MG/0.5 ML UDP PO STA (19:36)
[2020-05-30 19:44] LABS: Appearance Urine Cloudy (Clear); Bacteria Urine Automated 4+ (Negative); Bilirubin Urine Negative (Negative); Blood Urine 2+ (Negative); Color Urine Dark Yellow; Epithelial Cell Urine Auto 20-30 /lpf (0-5); Glucose Urine UA Negative (Negative); Ketones Urine Trace (Negative); Leukocyte Esterase Urine 1+ (Negative); Nitrite Urine Positive (Negative); Protein Urine 1+ (Negative); Specific Gravity Urine 1.028 (1.000-1.030); Urobilinogen Urine Negative (Negative); WBC Urine Automated >30 /hpf (0-5)
[2020-05-30] MEDS ORDERED: OXYCODONE HCL IR 5 MG TAB (IMMEDIATE RELEASE) PO STA (19:53)
[2020-05-30 19:58] LABS: Cast Urine Automated 0 /lpf (0-5); RBC Urine Automated 0-4 /hpf (0-4)
[2020-05-30 20:00] LABS: INR 6.2 (0.9-1.1)
[2020-05-30 20:01] LABS: Partial Thromboplastin Time 55.5 Seconds (21.0-31.0)
[2020-05-30] MEDS ORDERED: PHYTONADIONE 5 MG in SODIUM CHLORIDE 0.9% 50 ML IV ONE (20:03)
[2020-05-30] MEDS ORDERED: PIPERACILLIN/TAZOBACTAM 4.5 GM/120 ML BAG IV ONE (20:04)
[2020-05-30] MEDS ORDERED: PIPERACILL/TAZOBAC CONSULT ACTIVE PRN (20:04)
[2020-05-30] MEDS ORDERED: ONDANSETRON INJ 2 MG/ML 2 ML VIAL IV STA (20:12)
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
[2020-05-30] MEDS ORDERED: NYSTATIN POWDER 15GM BTL EXT PRN (21:55)
[2020-05-30] MEDS ORDERED: DEXTROSE 50% 50 ML SYRINGE IV PRN (21:55)
[2020-05-30] MEDS ORDERED: GLUCOSE 40% GEL 15 GM TUBE PO PRN (21:55)
[2020-05-30] MEDS ORDERED: GLUCOSE 10 TABS/TUBE PO PRN (21:55)
[2020-05-30] MEDS ORDERED: CARBOHYDRATES FOR HYPOGLYCEMIA PO PRN (21:55)
[2020-05-30] MEDS ORDERED: ALBUT/IPRATROP 3MG/0.5MG NEB 3 ML VIAL INH PRN (21:55)
[2020-05-30] MEDS ORDERED: SENNA 8.6 MG TAB PO PRN (21:55)
[2020-05-30] MEDS ORDERED: GLUCAGON FOR INJ 1 MG VIAL SQ PRN (21:55)
[2020-05-30] MEDS ORDERED: FLUTICASONE PROPIONATE NA SPR 16 GM BTL NAE PRN (21:55)
[2020-05-30] MEDS ORDERED: ACETAMINOPHEN 325 MG TAB PO PRN (21:55)
[2020-05-31] MEDS ORDERED: OXYCODONE HCL IR 5 MG TAB (IMMEDIATE RELEASE) PO STA
[2020-05-31] MEDS ORDERED: LIDOCAINE 5% 1 PATCH TD SCH (00:15)
[2020-05-31] MEDS: LORazepam 0.5 MG TAB PO PRN ×3 (00:50→19:41)
[2020-05-31] MEDS ORDERED: NICOTINE 21 MG/24 HR TDSY TD SCH (06:00)
[2020-05-31] MEDS: PIPERACILLIN/TAZOBACTAM 4.5 GM in DEXTROSE 5% 100 ML IV SCH ×3 (06:23→21:24)
[2020-05-31] MEDS ORDERED: PANTOprazole 40 MG TAB PO SCH (06:30)
[2020-05-31 07:14] LABS: Hematocrit (blood only) 38.7 % (42-52); Hemoglobin 11.7 g/dL (14.0-18.0); Mean Corpuscular Hemoglobin 22.5 pg (25-34); Mean Corpuscular Hgb Conc 30.2 g/dL (32-36); Mean Corpuscular Volume 74.4 fL (80-100); Mean Platelet Volume 9.6 fL (7.4-10.4); Platelet Count 275 K/uL (130-400); RDW Coefficient of Variation 20.7 % (11.5-14.5); White Blood Count 10.22 K/uL (4.8-10.8)
[2020-05-31 07:22] LABS: INR 2.6 (0.9-1.1); Prothrombin Time 26.2 Seconds (9.0-12.0)
[2020-05-31 07:39] LABS: BUN Creatinine Ratio 7.5 (10-20); Calcium 9.1 mg/dl (8.5-10.1)
[2020-05-31] MEDS: INSULIN ASPART 100 UNITS/ML 3 ML PEN SC SCH ×4 (08:17→20:38)
[2020-05-31] MEDS: DOCUSATE SODIUM 100 MG CAP PO SCH ×2 (08:23→19:47)
[2020-05-31] MEDS: CYCLOBENZAPRINE HCL 10 MG TAB PO SCH ×2 (08:23→19:43)
[2020-05-31] MEDS: FUROSEMIDE 40 MG TAB PO SCH ×2 (08:26→19:48)
[2020-05-31] MEDS: POTASSIUM CHLORIDE 20 MEQ TABCR PO SCH ×2 (08:26→19:46)
[2020-05-31] MEDS: GABAPENTIN 800 MG TAB PO SCH ×3 (08:26→19:44)
[2020-05-31] MEDS: METOPROLOL SUCC 50MG EXT REL TAB PO SCH ×2 (08:27→19:49)
[2020-05-31] MEDS ORDERED: TAMSULOSIN HCL 0.4 MG CAP PO SCH (09:00)
[2020-05-31] MEDS ORDERED: ASPIRIN 81 MG ECTAB PO SCH (09:00)
[2020-05-31] MEDS ORDERED: UMECLIDINIUM BROMIDE 62.5MCG/BLISTER 7 PUFFS/INHALER INH SCH (09:00)
[2020-05-31] MEDS ORDERED: IPRATROPIUM BROMIDE/ALBUTEROL respimat INH INH SCH (09:00)
[2020-05-31] MEDS ORDERED: DULOXETINE HCL 60 MG CAP PO SCH (09:00)
[2020-05-31] MEDS ORDERED: ISOSORBIDE MONO EXTENDED REL 30 MG TABCR PO SCH (09:00)
[2020-05-31] MEDS ORDERED: FOLIC ACID 1 MG TAB PO SCH (09:00)
[2020-05-31] MEDS ORDERED: POLYETHYLENE (MIRALAX) 17 GM PACK PO SCH (09:00)
[2020-05-31] MEDS ORDERED: NON-FORMULARY MEDICATION (Lactobacillus Acidoph-L.Bulgar [Lactinex] 1 TAB) PO SCH (09:00)
[2020-05-31] MEDS ORDERED: MAGNESIUM OXIDE 400 MG TAB PO SCH (09:00)
[2020-05-31] MEDS ORDERED: SPIRONOLACTONE 25 MG TAB PO SCH (09:00)
[2020-05-31] MEDS ORDERED: FLUTICASONE/VILANTEROL 200/25MCG 14 PUFFS/INHALER INH SCH (09:00)
[2020-05-31] MEDS ORDERED: FINASTERIDE 5 MG TAB PO SCH (09:00)
[2020-05-31] MEDS: Ipratropium HFA Inhaler (Combivent Respimat P&T Subs) INH SCH ×3 (10:41→15:06)
[2020-05-31] MEDS: Albuterol HFA 8 GM Inhaler (Combivent Respimat P&T Subs) INH SCH ×3 (10:42→15:06)
--- NOTE | 2020-05-31 12:06 | Consultation Report ---
DATE OF CONSULTATION: 05/31/2020 HISTORY OF PRESENTATION: The patient is a 49-year-old male with a history of having an indwelling Lloyd catheter placed in 12/2018 when he began to have difficulties with his heart. He had congestive heart failure. He also has multiple problems with back pain and neuropathy, and now he says with a right broken foot, has been on chronic pain medication for a long period of time. He has had a history of pulmonary embolus and ever since his catheter was placed, he failed several voiding trials. Over the summer, he was given a chance to have voiding trials in the office and did not show up and has been having admissions with increasingly resistant organisms because of this indwelling Lloyd catheter. He has been on finasteride and tamsulosin, but it is unclear when his last voiding trial was and if the finasteride may have allowed him a chance to void spontaneously. I did tell the patient on a phone visit that was done about a month ago that if he was in the hospital, we should be consulted to consider if we can clear his infection to give him a voiding trial. In any case, his catheter has been in a month and it needs to be changed. When I was in the room discussing this, the patient says he was unsure whether he could have a voiding trial because he does not know if he can stand the pain with standing up. Apparently, pain management is a long and chronic problem for this patient, and I told him that we would see how he did over the weekend. His urine is very very cloudy, almost cream colored and we will irrigate his bladder, treat him accordingly with antibiotics and if we can clear his urine to a certain extent, we would need to change the catheter in any case and at that time, we will give him a voiding trial. Apparently, he needs a coude catheter to have a catheter placed. I also had suggested him once the catheter is out that he be placed on methenamine to try to prevent urinary tract infection recurrences. He may need to see infectious disease if he has resistant organisms. REVIEW OF SYSTEMS: Please review the admission history and physical and past medical history of this patient which is quite extensive. PHYSICAL EXAMINATION: GENERAL: The patient is a morbidly obese male, lying in bed with extremely swollen lower extremities. ABDOMEN: Large and distended. GENITOURINARY: He has descended testes bilaterally with a Lloyd catheter indwelling draining cream-colored urine. NEUROLOGIC: He is alert and oriented and responsive. PSYCHIATRIC: The patient is somewhat despondent given his situation, but this seems like a chronic ongoing problem. It seems like he has been in this situation for over a year and a half. ASSESSMENT AND PLAN: Depression, chronic back pain and lower extremity pain, chronic congestive heart failure, chronic urinary retention, chronic recurrent urinary tract infection. We will order b.i.d. irrigations to try to help clear infection. He is on antibiotics pending urine culture results. Would consider a voiding trial as in any case, the patient's catheter needs to be changed prior to discharge and would give him a voiding trial prior to discharge. If the patient is unable to void, obviously we will need to have a Lloyd catheter placed and once his antibiotics are completed, we will have him start methenamine 1 gram b.i.d., which I have ordered for him and apparently he has it at home.
--- NOTE | 2020-05-31 12:37 | Electrocardiogram Report ---
Test Reason : Blood Pressure : / mmHG Vent. Rate : 099 BPM Atrial Rate : 099 BPM P-R Int : 148 ms QRS Dur : 106 ms QT Int : 336 ms P-R-T Axes : 098 061 068 degrees QTc Int : 431 ms Normal sinus rhythm RSR' or QR pattern in V1 suggests right ventricular conduction delay Abnormal ECG When compared with ECG of 14-APR-2020 16:14, Nonspecific T wave abnormality, worse in Inferior leads Confirmed by Luan Escalante ([id number]) on 05/31/2020 12:37:01 PM Referred By: REFERRED SELF Confirmed By:Mark Escalante
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
--- NOTE | 2020-05-31 12:45 | Electrocardiogram Report ---
Test Reason : Blood Pressure : / mmHG Vent. Rate : 081 BPM Atrial Rate : 081 BPM P-R Int : 160 ms QRS Dur : 108 ms QT Int : 392 ms P-R-T Axes : 081 048 062 degrees QTc Int : 455 ms Sinus rhythm with Premature atrial complexes Nonspecific T wave abnormality Incomplete right bundle branch block Abnormal ECG When compared with ECG of 30-MAY-2020 18:21, (unconfirmed) Premature atrial complexes are now Present Confirmed by Luan Escalante ([id number]) on 05/31/2020 12:45:20 PM Referred By: REFERRED SELF Confirmed By:Mark Escalante
--- NOTE | 2020-05-31 14:56 | Hospitalist Progress Note ---
Date of Service May 31, 2020 Assessment & Plan (1) Chest pain: Patient is a 49 yr male with H/O DM II, HTN, H/O PE, on Coumadin, diastolic CHF, chronic back pain, COPD, urinary retention with chronic Lloyd, depression, anxiety, H/O recurrent hospitalizations, h/o subdural hematoma, SAH, STEMI, presented to ER with c/o not feeling well x 1 week. Also reported chest pain for several hours which was relieved by nitroglycerin prior to admission. Reports chronic shortness of breath with exertion. Atypical Chest Pain Less likely cardiac origin EKG: Sinus rhythm, PACs, nonspecific T wave abnormality Troponin X 3: Negative Continue Aspirin, statin, metoprolol, isosorbide Nitro PRN Consider cardiology eval if recurrence of chest pain (2) Supratherapeutic INR: Supratherapeutic INR--Coumadin induced INR: 6.2>>2.6 Received vitamin K 5 mg Hold Coumadin for now Monitor INR (3) Rectal bleed: Reported bright red blood on toilet paper after BMs x2 days Rectal bleeding in setting of coagulopathy Fecal Occult: Positive Hemoglobin at baseline Monitor H&H INR now therapeutic Hold Coumadin for now Consider GI eval if recurrence of bleeding (4) Urinary tract infection: Likely UTI due to chronic indwelling Lloyd catheter Chronic Urinary Retention Follows with [facility]. Urine/Blood cultures:pending Continue Madisyn Appreciate Urology Input Plan for irrigation as per urology Advised Lloyd change, but patient refused Voiding trial prior to discharge Plan to start on methenamine 1 g twice daily for prophylaxis per Urology (5) Chronic diastolic CHF (congestive heart failure): Euvolemic currently Continue lasix, spironolactone Monitor volume status, I's and O's and electrolytes (6) DM type 2 (diabetes mellitus, type 2): A1c: 7.3 on 04/15/2020 Hold home oral meds NovoLog sliding scale per protocol (7) COPD (chronic obstructive pulmonary disease): Respiratory status seems to be at baseline Saturating well on room air Continue home inhalers (8) Chronic pain: Chronic pain syndrome Demands Narcotics for chronic pain despite explaining the risks and complications Discussed with pain management, patient and his fianc in detail Patient admits to taking his fianc Subutex and also confirmed by patient's fianc Refuses to try IV Tylenol Pain management consulted Not currently being prescribed narcotics by PCP Continue gabapentin, Lidoderm patch Very high risk for narcotic abuse with multiple admissions with similar demands Patient had multiple verbal altercation with provides on multiple occasions Patient apparently has been taking his significant other's prescribed Subtex twice daily PDMP indicates multiple prescriptions for controlled substances from different providers No further recommendations per pain management Ideally needs inpatient rehab placement for opiate misuse/abuse history if patient agrees (9) Morbid obesity: BMI: 59 Lifestyle modifications recommended DVT Px: Coumadin on hold Code Status Full Code Disposition To be determined Admission and Anticipated Discharge Date Admission Date: May 30, 2020 Subjective Patient is seen and examined at bedside Demands for pain medications for chronic pain Discussed with pain management, patient and his fianc in detail Patient denies any dysuria, chest pain, shortness of breath today Reports intermittent hematuria Refused Lloyd change as per RN No recurrence of bleeding per rectum this morning Patient admits to taking his fianc Subutex since many days Refuses to try IV Tylenol Review of Systems Review of Systems: All systems reviewed & are unremarkable except as noted in HPI & below Physical Exam Physical Exam: Physical Exam: Vitals signs as noted above General Appearance:Morbidly Obese, no apparent distress Head: normocephalic, Atraumatic Eyes: normal inspection, EOMI Neck: supple, Trachea midline Respiratory/Chest: Decreased breath sounds, Scattered wheezes Cardiovascular: S1, S2, No murmur Abdomen/GI:Soft, Non tender, Bowel sounds present Extremities/Musculoskelatal:normal inspection, B/L LE edema--chronic Neurologic/Psych:AAOX3, grossly no focal neurological deficits Skin: normal color, warm Results & Data Results & Data ([facility]) Vital Signs (Past 12 Hours) Vital Signs Temp Pulse Pulse Resp BP Pulse Ox 05/31/20 11:54 36.5 C 87 18 150/71 H 95 05/31/20 09:14 81 05/31/20 07:21 36.7 C 78 18 152/76 H 93 Laboratory Results Short CBC 05/30/20 05/31/20 Range/Units 18:47 06:27 WBC 12.67 H 10.22 (4.8-10.8) K/uL Hgb 12.3 L 11.7 L (14.0-18.0) g/dL Hct 40.0 L 38.7 L (42-52) % Plt Count 312 275 (130-400) K/uL BMP 05/30/20 05/31/20 18:47 06:27 Sodium 138 139 Potassium 3.8 4.0 Chloride 104 107 Carbon Dioxide 28 28 BUN 8 7 Creatinine 1.14 1.00 Glucose 142 H 138 H Calcium 9.3 9.1 Cardiac Enzymes 05/30/20 05/31/20 05/31/20 Range/Units 18:47 00:18 06:27 Troponin I < 0.015 < 0.015 < 0.015 (0-0.045) ng/ml Liver Function 05/30/20 Range/Units 18:47 Total Bilirubin 0.4 (0.2-1) mg/dl AST 17 (15-37) U/L ALT 18 (12-78) U/L Alkaline Phosphatase 136 H (45-117) U/L Albumin 3.0 L (3.4-5.0) gm/dl Urine 05/30/20 Range/Units 19:30 Urine Color Dark Yellow Urine Appearance Cloudy A (Clear) Urine pH 7.0 (4.5-7.5) Ur Specific [place] 1.028 (1.000-1.030) Urine Protein 1+ H (Negative) Urine Glucose (UA) Negative (Negative) (1) COPD (chronic obstructive pulmonary disease) COPD type: unspecified COPD Qualified Code(s): J44.9 - Chronic obstructive pulmonary disease, unspecified
[2020-05-31] MEDS: IPRATROPIUM BROMIDE/ALBUTEROL respimat INH INH SCH ×2 (15:05→19:14)
[2020-05-31 16:21] LABS: Hematocrit (blood only) 36.9 % (42-52); Hemoglobin 11.4 g/dL (14.0-18.0)
[2020-05-31] MEDS ORDERED: ATORVASTATIN 40 MG TAB PO SCH (21:00)
[2020-05-31] MEDS ORDERED: ACETAMINOPHEN 1,000 MG/100 ML VIAL IV PRN (21:23)
[2020-06-01] MEDS: LORazepam 0.5 MG TAB PO PRN (04:11)
[2020-06-01] MEDS: PIPERACILLIN/TAZOBACTAM 4.5 GM in DEXTROSE 5% 100 ML IV SCH (06:27)
[2020-06-01] MEDS: IPRATROPIUM BROMIDE/ALBUTEROL respimat INH INH SCH ×2 (07:28→11:26)
[2020-06-01 07:46] LABS: Hematocrit (blood only) 39.7 % (42-52); Hemoglobin 11.9 g/dL (14.0-18.0); Mean Corpuscular Hemoglobin 22.7 pg (25-34); Mean Corpuscular Volume 75.6 fL (80-100); Mean Platelet Volume 9.8 fL (7.4-10.4); Platelet Count 255 K/uL (130-400); RDW Coefficient of Variation 20.6 % (11.5-14.5); Red Blood Count 5.25 M/uL (4.7-6.1); White Blood Count 8.04 K/uL (4.8-10.8)
[2020-06-01 07:54] LABS: INR 2.2 (0.9-1.1)
[2020-06-01 08:20] LABS: BUN Creatinine Ratio 7.9 (10-20); Calcium 9.7 mg/dl (8.5-10.1); Creatinine Clr Calc Pharmacy 148.1 ml/min; Est GFR (African American) 98.4; Est GFR (Non-African American) 84.9; Potassium 4.2 mmol/L (3.5-5.1)
--- NOTE | 2020-06-01 12:00 | Hospitalist Progress Note ---
Date of Service June 01, 2020 Assessment & Plan (1) Chest pain: Patient is a 49 yr male with H/O DM II, HTN, H/O PE, on Coumadin, diastolic CHF, chronic back pain, COPD, urinary retention with chronic Fontaine, depression, anxiety, H/O recurrent hospitalizations, h/o subdural hematoma, SAH, STEMI, presented to ER with c/o not feeling well x 1 week. Also reported chest pain for several hours which was relieved by nitroglycerin prior to admission. Reports chronic shortness of breath with exertion. Atypical Chest Pain Less likely cardiac origin EKG: Sinus rhythm, PACs, nonspecific T wave abnormality Troponin X 3: Negative Continue Aspirin, statin, metoprolol, isosorbide Nitro PRN Consider cardiology eval if recurrence of chest pain Chest pain resolved (2) Supratherapeutic INR: Supratherapeutic INR--Coumadin induced INR: 6.2>>2.6>>2.2 Received vitamin K 5 mg Plan to resume Coumadin as able Monitor INR (3) Rectal bleed: Reported bright red blood on toilet paper after BMs x2 days Rectal bleeding in setting of coagulopathy Fecal Occult: Positive Hemoglobin at baseline Monitor H&H INR now therapeutic Held Consider GI eval if recurrence of bleeding No recurrence of bleeding in stool during hospital stay Hb stable (4) Urinary tract infection: UTI Ruled out Chronic indwelling Fontaine catheter Chronic Urinary Retention Follows with [facility] [place] [facility]. Urine Cx: Normal Skin Kaity Blood cultures:No growth to date Discontinue Zosyn Appreciate Urology Input Plan for irrigation as per urology Advised Fontaine change, but patient refused on multiple occasions Voiding trial prior to discharge--patient refused Plan to start on methenamine 1 g twice daily for prophylaxis per Urology --Patient left AMA (5) Chronic diastolic CHF (congestive heart failure): Euvolemic currently Continue lasix, spironolactone Monitor volume status, I's and O's and electrolytes (6) DM type 2 (diabetes mellitus, type 2): A1c: 7.3 on 04/15/2020 Hold home oral meds NovoLog sliding scale per protocol (7) COPD (chronic obstructive pulmonary disease): Respiratory status seems to be at baseline Saturating well on room air Continue home inhalers (8) Chronic pain: Chronic pain syndrome Demands Narcotics for chronic pain despite explaining the risks and complications Discussed with pain management, patient and his fianc in detail Patient admits to taking his fianc Subutex and also confirmed by patient's fianc Refuses to try IV Tylenol Pain management consulted Not currently being prescribed narcotics by PCP Continue gabapentin, Lidoderm patch Very high risk for narcotic abuse with multiple admissions with similar demands Patient had multiple verbal altercation with provides on multiple occasions Patient apparently has been taking his significant other's prescribed Subtex twice daily PDMP indicates multiple prescriptions for controlled substances from different providers No further recommendations per pain management Ideally needs inpatient rehab placement for opiate misuse/abuse history if patient agrees Offered mental health eval--but patient refused (9) Morbid obesity: BMI: 59 Lifestyle modifications recommended DVT Px: Resume Coumadin as able Code Status Full Code Disposition Left AMA despite explaining the risks/complications in detail. Patient understands his condition and the consequences if left AMA. Admission and Anticipated Discharge Date Admission Date: May 30, 2020 Subjective Patient is seen and examined at bedside Continue to demands for Narcotic pain medications for chronic pain Denies chest pain, SOB, dysuria, hematuria No recurrence of bleeding per rectum Upset with Staff and refuses fontaine catheter change Refuses to try IV Tylenol Left AMA despite explaining the risks/complications in detail Review of Systems Review of Systems: All systems reviewed & are unremarkable except as noted in HPI & below Physical Exam Physical Exam: Physical Exam: Vitals signs as noted above General Appearance:Morbidly Obese, no apparent distress Head: normocephalic, Atraumatic Eyes: normal inspection, EOMI Neck: supple, Trachea midline Respiratory/Chest: Decreased breath sounds, Scattered wheezes Cardiovascular: S1, S2, No murmur Abdomen/GI:Soft, Non tender, Bowel sounds present Extremities/Musculoskelatal:normal inspection, B/L LE edema--chronic Neurologic/Psych:AAOX3, grossly no focal neurological deficits Skin: normal color, warm Results & Data Results & Data ([facility]) Vital Signs (Past 12 Hours) Vital Signs Temp Pulse Resp BP Pulse Ox 06/01/20 07:28 36.4 C L 70 18 117/78 98 06/01/20 04:00 36.6 C 73 20 131/72 97 (1) COPD (chronic obstructive pulmonary disease) COPD type: unspecified COPD Qualified Code(s): J44.9 - Chronic obstructive pulmonary disease, unspecified
--- NOTE | 2020-06-01 12:40 | Discharge Summary ---
Date of Service June 01, 2020 Admission HPI Per Admitting Provider Pt is 49 y/o M with PMH DM II, HTN, H/O PE, on Coumadin, diastolic CHF, chronic back pain, COPD, urinary retention with chronic Lloyd, depression, anxiety, history of recurrent hospitalizations, h/o subdural hematoma, SAH, STEMI, presented to ER with c/o not feeling well x 1 week. Patient states this is been feeling rundown for the past week. He is concerned he has a UTI as he has noticed cloudy urine in Lloyd bag. Patient reports has been taking his temperature over the past week and highest recorded was 100 F. He reports his Lloyd cath was last changed during previous hospitalization. He is now follow ing with [facility] [place] [facility]. Recent hospital admission was 04/15-04/19/20, had UTI. Patient reports last night had chest pain for several hours which was relieved by nitroglycerin. Patient denies any current chest pain. He reports chronic shortness of breath with exertion. Has been having varying weights with weight gain of 7 pounds in the last week. Patient thinks extremity edema is about the same and known worse. Patient does not ambulate much at home. Patient states past 2 days his girlfriend has noticed bright red blood on toilet paper with wiping patient after BM. Patient reports chronic intermittent abdominal pains, denies any increased abdominal pain. Patient reports chronic cough, denies any increased cough. He is following with Coumadin clinic and has had supratherapeutic INRs and his Coumadin has been held and decreased and INRs closely monitored. Earlier in the month had INR> 8 without any reported bleeding at that time. Chronic pain and paresthesias are at baseline. Patient not currently being prescribed narcotics by PCP. Denies recent travel, sick contacts,or exposure to COVID 19. Denies N/V/D/C, BURNETTE, dizziness, syncope, vision changes, neck pain, sore throat, choking, otalgia, rhinorrhea. Admission Exam Per Admitting Provider Physical Exam Physical Exam: General: no acute distress, morbidly obese Head: normocephalic, atraumatic Eyes: PERRL, EOM's intact, conjunctiva non-injected, anicteric ENT: normal inspection external ears, nose, mucous membranes moist Neck: supple, trachea midline Lungs: no respiratory distress, scattered expiratory wheezing, no rhonchi/rales CV: RRR, no murmur, 1+ pretibial edema Abd: normal BS, protuberant, soft, non-tender, no CVA tenderness Ext: no cyanosis, no calf tenderness Neuro: A&O x 3, no focal deficits noted, normal affect Skin: warm, dry Principal Diagnosis Atypical Chest Pain Supratherapeutic INR Positive Fecal occult Left against Medical Advice Discharge Data Allergies Allergy/AdvReac Type Severity Reaction Status Date / Time fentanyl Allergy Intermediate RASH/HIVES/SKIN Verified 05/30/20 20:03 REDNESS naloxone AdvReac Severe extremely Verified 05/30/20 20:03 sick acetaminophen AdvReac Intermediate Unknown Verified 05/30/20 20:03 ibuprofen AdvReac Intermediate Nausea Verified 05/30/20 20:03 valproic acid AdvReac Intermediate PANCREATITS Verified 05/30/20 20:03 Consultations 05/30/20 20:04 ED Decision to Admit Stat 05/30/20 21:55 Consult Case Management - Discharge Planning Routine Consult Urology Routine 05/31/20 11:06 Consult Pain Management Routine Procedures Performed CXR: No significant change compared to the prior study. No acute process. Stable mild cardiomegaly. Hospital Course (1) Chest pain: Patient is a 49 yr male with H/O DM II, HTN, H/O PE, on Coumadin, diastolic CHF, chronic back pain, COPD, urinary retention with chronic Lloyd, depression, anxiety, H/O recurrent hospitalizations, h/o subdural hematoma, SAH, STEMI, presented to ER with c/o not feeling well x 1 week. Also reported chest pain for several hours which was relieved by nitroglycerin prior to admission. Reports chronic shortness of breath with exertion. Atypical Chest Pain Less likely cardiac origin EKG: Sinus rhythm, PACs, nonspecific T wave abnormality Troponin X 3: Negative Continue Aspirin, statin, metoprolol, isosorbide Nitro PRN Consider cardiology eval if recurrence of chest pain Chest pain resolved (2) Supratherapeutic INR: Supratherapeutic INR--Coumadin induced INR: 6.2>>2.6>>2.2 Received vitamin K 5 mg Plan to resume Coumadin as able Monitor INR (3) Rectal bleed: Reported bright red blood on toilet paper after BMs x2 days Rectal bleeding in setting of coagulopathy Fecal Occult: Positive Hemoglobin at baseline Monitor H&H INR now therapeutic Held Consider GI eval if recurrence of bleeding No recurrence of bleeding in stool during hospital stay Hb stable (4) Urinary tract infection: UTI Ruled out Chronic indwelling Lloyd catheter Chronic Urinary Retention Follows with [facility] [place] [facility]. Urine Cx: Normal Skin Kaity Blood cultures:No growth to date Discontinue Zosyn Appreciate Urology Input Plan for irrigation as per urology Advised Lloyd change, but patient refused on multiple occasions Voiding trial prior to discharge--patient refused Plan to start on methenamine 1 g twice daily for prophylaxis per Urology --Patient left AMA (5) Chronic diastolic CHF (congestive heart failure): Euvolemic currently Continue lasix, spironolactone Monitor volume status, I's and O's and electrolytes (6) DM type 2 (diabetes mellitus, type 2): A1c: 7.3 on 04/15/2020 Hold home oral meds NovoLog sliding scale per protocol (7) COPD (chronic obstructive pulmonary disease): Respiratory status seems to be at baseline Saturating well on room air Continue home inhalers (8) Chronic pain: Chronic pain syndrome Demands Narcotics for chronic pain despite explaining the risks and complications Discussed with pain management, patient and his fianc in detail Patient admits to taking his fianc Subutex and also confirmed by patient's fianc Refuses to try IV Tylenol Pain management consulted Not currently being prescribed narcotics by PCP Continue gabapentin, Lidoderm patch Very high risk for narcotic abuse with multiple admissions with similar demands Patient had multiple verbal altercation with provides on multiple occasions Patient apparently has been taking his significant other's prescribed Subtex twice daily PDMP indicates multiple prescriptions for controlled substances from different providers No further recommendations per pain management Ideally needs inpatient rehab placement for opiate misuse/abuse history if patient agrees Offered mental health eval--but patient refused (9) Morbid obesity: BMI: 59 Lifestyle modifications recommended DVT Px: Resume Coumadin as able Code Status Full Code Disposition Left AMA despite explaining the risks/complications in detail. Patient understands his condition and the consequences if left AMA. Total Time Total Time Spent Total Time Spent (In Minutes): 45 minutes Total Time Includes: Examination of the Patient, Discharge Planning, Medication Reconciliation, Communication With Other Providers and Other Discharge Plan Discharge Items Patient Disposition: Against Medical Advice Reason For Visit: CP Discharge Diagnosis: Atypical Chest Pain Supratherapeutic INR Positive Fecal occult Activity: Per Instructions section Non-emergency contact: Primary Care Provider and Urologist Call non-emergency contact if: you have any medication questions, your symptoms worsen, your pain is not controlled, your pain is worsening, your pain is unusual for you and you have a fever Follow-up/Referrals: Roberto Askew MD [Primary Care Provider] - Diet: Carb Consistent or DM2 and Heart Healthy Addtl Attending Provider Instructions: Patient left AGAINST MEDICAL ADVICE Advised to follow-up with his primary care physician Dr. Askew and his urologist. Pending Studies at Discharge: Yes Studies:: Blood Culture Stand-Alone Forms: My [employer], Smoking Cessation Medications and DC Order Prescriptions: Continued duloxetine 20 mg capsule,delayed release(DR/EC) 60 mg PO QAM 30 Days Qty: 90 RF: 0 polyethylene glycol 3350 [Miralax] 17 gram powder in packet 17 g PO QAM RF: 0 nitroglycerin [Nitrostat] 0.4 mg tablet, sublingual 0.4 mg Sublingual DIRECTED PRN (Reason: CHEST PAIN) RF: 0 nystatin 100,000 unit/gram Powder 1 applic TOPICAL TID PRN (Reason: Skin Irritation) RF: 0 cyclobenzaprine 10 mg Tablet 10 mg PO BID RF: 0 ipratropium-albuterol 0.5 mg-3 mg(2.5 mg base)/3 mL Solution For Nebulization 3 ml INHALATION Q6H PRN (Reason: Shortness Of Breath Or Wheezing) RF: 0 magnesium oxide 400 mg (241.3 mg magnesium) Tablet 400 mg PO QAM RF: 0 docusate sodium 100 mg Capsule 100 mg PO BID RF: 0 Lactinex 1 million cell Tablet,Chewable 1 tab PO BID RF: 0 hydroxyzine HCl 25 mg tablet 25 mg PO QID PRN (Reason: Anxiety) RF: 0 fluticasone propionate 50 mcg/actuation spray,suspension 2 spray Intranasal DAILY PRN (Reason: Allergy Symptoms) RF: 0 aspirin [Ecotrin Low Strength] 81 mg tablet,delayed release (DR/EC) 81 mg PO QAM RF: 0 Spiriva with HandiHaler 18 mcg capsule, w/inhalation device 1 puff inhalation QAM RF: 0 finasteride 5 mg tablet 5 mg PO QAM RF: 0 tamsulosin [Flomax] 0.4 mg Capsule 0.4 mg PO QAM RF: 0 metoprolol succinate 50 mg Tablet Extended Release 24 Hr 50 mg PO BID RF: 0 spironolactone 25 mg Tablet 25 mg PO QAM RF: 0 Breo Ellipta 200-25 mcg/dose Blister With Device 1 inh INHALATION QAM RF: 0 glipizide 5 mg tablet 5 mg PO BID Qty: 60 RF: 1 atorvastatin 80 mg tablet 80 mg PO QPM RF: 0 sennosides [senna] 8.6 mg Tablet 8.6 mg PO DAILY PRN (Reason: Constipation) RF: 0 folic acid 1 mg Tablet 1 mg PO QAM RF: 0 furosemide [Lasix] 40 mg tablet 40 mg PO BID RF: 0 lorazepam 0.5 mg tablet 0.5 mg PO Q8H PRN (Reason: Anxiety) RF: 0 Combivent Respimat 20-100 mcg/actuation Mist 1 puff INHALATION QID RF: 0 warfarin [Coumadin] 5 mg Tablet 0 mg PO DAILY RF: 0 potassium chloride 20 mEq Tablet Extended Release 20 meq PO BID RF: 0 albuterol sulfate 90 mcg/actuation Hfa Aerosol Inhaler 2 puff INHALATION Q4 PRN (Reason: Dyspnea) RF: 0 urea 20 % Cream 1 applic TOPICAL BID PRN (Reason: Skin Irritation) RF: 0 ondansetron HCl [Zofran] 4 mg Tablet 4 mg PO Q4H PRN (Reason: Nausea And Vomiting) RF: 0 omeprazole 20 mg Capsule,Delayed Release(Dr/Ec) 20 mg PO DAILYBB RF: 0 guaifenesin [Mucinex] 600 mg Tablet Extended Release 12hr 600 mg PO Q12H PRN (Reason: Congestion) RF: 0 isosorbide dinitrate 30 mg Tablet 30 mg PO QAM RF: 0 gabapentin 800 mg tablet 800 mg PO TID RF: 0 Discharge Orders: Left Against Medical Advice (Routine); Ordered 06/01/20 Ordered By: Dipesh Wright Admission Data Admit Date/Time: 05/30/20 20:44 Attending Provider: Dipesh Wright Admit Provider: Xu Silvestre Primary Care Provider: Roberto Askew Other Providers: Waldemar Galarza ; Theron Ching ; Franklin Oakley Other Interventions: Discharge Summary Assessment (RN) Last Done: 06/01/20 12:08
== END 2020-06-01 12:10 | disposition left against medical advice (07) | DRG 699 ==
LOC: ED 18:16 → 2N 20:44 → SUATTDRO 20:44 → 2N 21:24

== ENCOUNTER 2020-07-05 20:43 | Inpatient (IN) ==
[2020-07-05] MEDS ORDERED: ONDANSETRON INJ 2 MG/ML 2 ML VIAL IV STA (21:08)
[2020-07-05] MEDS ORDERED: SODIUM CHLORIDE 0.9% 500 ML IV SCH (21:15)
[2020-07-05] MEDS ORDERED: MoRPHine SULFATE 4 MG/ML 1 ML CARP\\VIAL IV STA (21:17)
--- NOTE | 2020-07-05 21:30 | XRay Report ---
SINGLE VIEW CHEST CLINICAL HISTORY: Atypical chest pain. FINDINGS: An AP, portable, upright chest radiograph is compared to study dated 06/25/2020 and correlat ed with chest CT dated 08/01/2019. The examination is degraded by portable technique, patient rotatio n, large body habitus, and apical lordotic positioning. The cardiomediastinal silhouette is top norm al for projection. There is bibasilar atelectasis. The lungs and pleural spaces are otherwise clear. No pneumothorax is seen. There is chronic posttraumatic deformity of the left clavicle. IMPRESSION: No active disease in the chest. Electronically signed by: Misael Lopez M.D. 07/05/2020 9:28 PM
--- NOTE | 2020-07-05 21:43 | Emergency Department Note ---
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 Qualified Code(s): R55 - Syncope and collapse Chest pain Qualifiers: Chest pain type: unspecified Qualified Code(s): R07.9 - Chest pain, unspecified Head injury Qualifiers: Encounter type: initial encounter Qualified Code(s): S09.90XA - Unspecified injury of head, initial encounter
[2020-07-05 21:45] LABS: Basophils # (auto) 0.03 K/uL (0-0.2); Basophils % (auto) 0.2 %; Eosinophils # (auto) 0.04 K/uL (0-0.5); Eosinophils % (auto) 0.3 %; Hematocrit (blood only) 37.1 % (42-52); Hemoglobin 11.5 g/dL (14.0-18.0); Immature Granulocytes # (auto) 0.05 K/uL (0.00-0.02); Immature Granulocytes % (auto) 0.3 %; Mean Corpuscular Hemoglobin 23.5 pg (25-34); Mean Corpuscular Volume 75.9 fL (80-100); Mean Platelet Volume 10.4 fL (7.4-10.4); Monocytes # (auto) 0.99 K/uL (0.11-0.59); Monocytes % (auto) 6.6 %; Neutrophils # (auto) 11.51 K/uL (1.4-6.5); Neutrophils % (auto) 76.6 %; Platelet Count 284 K/uL (130-400); RDW Coefficient of Variation 20.1 % (11.5-14.5); RDW Standard Deviation 55.3 fL (36.4-46.3); Red Blood Count 4.89 M/uL (4.7-6.1); White Blood Count 15.02 K/uL (4.8-10.8)
[2020-07-05 22:04] LABS: Anisocytosis Present
[2020-07-05 22:09] LABS: Partial Thromboplastin Ratio 2.8; Prothrombin Time > 90.0 Seconds (9.0-12.0)
[2020-07-05 22:25] LABS: INR > 9.7 (0.9-1.1)
[2020-07-05 22:26] LABS: Alanine Aminotransferase 24 U/L (12-78); Albumin Globulin Ratio 0.6 (0.9-2); Albumin Level 2.8 gm/dl (3.4-5.0); Alkaline Phosphatase 123 U/L (45-117); Aspartate Aminotransferase 24 U/L (15-37); Calcium 8.8 mg/dl (8.5-10.1); Carbon Dioxide 23 mmol/L (21-32); Chloride 108 mmol/L (98-107); Creatine Kinase 297 U/L (39-308); Creatinine Clr Calc Pharmacy 178.8 ml/min; Est GFR (African American) 114.3; Est GFR (Non-African American) 98.6; Globulin 4.4 gm/dl (2.5-4.0); Glucose 122 mg/dl (70-99); Lipase 50 U/L (73-393); Partial Thromboplastin Time 76.9 Seconds (21.0-31.0); Potassium 4.2 mmol/L (3.5-5.1); Sodium 139 mmol/L (136-145); Total Protein 7.2 gm/dl (6.4-8.2)
[2020-07-05 22:30] LABS: BUN Creatinine Ratio 5.7 (10-20); Bilirubin,Total 0.4 mg/dl (0.2-1); Blood Urea Nitrogen 5 mg/dl (7-18)
--- NOTE | 2020-07-05 22:31 | CT Scan Report ---
CT SCAN OF THE BRAIN WITHOUT IV CONTRAST CLINICAL HISTORY: Syncope. COMPARISON STUDY: Numerous prior CT scans of the brain, most recently dated 04/16/2020. TECHNIQUE: Unenhanced axial CT scan of the brain is performed from the vertex to the skull base. A d ose lowering technique was utilized adhering to the principles of ALARA. FINDINGS: Brain parenchyma: The brain parenchyma is normal in appearance. There is no hemorrhage, mass effect, or evidence of acute territorial ischemia by CT criteria. [place]un[place]-white matter differentiation is preser nani. No extra-axial fluid collection is seen. Ventricles, sulci, cisterns: Normal in configuration. Intracranial vasculature: The visualized intracranial vasculature at the skull base is normal in appe arance. Calvarium: There is no depressed calvarial fracture. Sinuses and mastoids: There is subtotal opacification of the right maxillary antrum. Mucosal thickeni ng is also seen in the right ethmoid and right sphenoid sinuses. There is a left mastoid effusion. Orbits: The bony orbits are grossly intact. IMPRESSION: 1. No acute intracranial abnormality. 2. Paranasal sinus disease as above. ACT 112: Negative or not required by law. Electronically signed by: Misael Lpoez M.D. 07/05/2020 10:30 PM
[2020-07-05 22:36] LABS: Troponin I < 0.015 ng/ml (0-0.045)
--- NOTE | 2020-07-05 22:37 | CT Scan Report ---
CT SCAN OF THE CERVICAL SPINE CLINICAL HISTORY: Syncope. COMPARISON STUDY: CT of the cervical spine dated 04/03/2019. TECHNIQUE: CT scan of the cervical spine is performed from the skull base to the upper thoracic spine . Images are reviewed in the axial, sagittal, and coronal planes. IV contrast was not administered fo r this examination. A dose lowering technique was utilized adhering to the principles of ALARA. The examination is degraded by large body habitus and by streak artifact from the shoulders. CT DOSE: 4359.99 mGy.cm FINDINGS: Skeletal structures: The skeletal structures are well mineralized. There is no evidence of fracture o r subluxation involving the cervical spine. Vertebral body height and alignment are maintained. There is straightening of the cervical lordosis. Small anterior osteophytes are seen throughout. The odont oid process and lateral masses are intact. The atlantoaxial articulation is preserved noting producti ve degenerative change. The spinous processes appear intact. There is moderate multilevel cervical sp ondylosis. Uncovertebral and facet arthropathy contribute to neural foraminal narrowing at several le vels. Intervertebral discs: Mild to moderate disc space narrowing is seen at all cervical levels between C4 -C5 and C6-C7. Central canal: Posterior disc osteophyte complexes are seen at all cervical levels between C3-C4 and C6-C7. This likely contributes to mild multilevel acquired compromise of the central canal. Soft tissues: The prevertebral and paraspinous soft tissues are within normal limits. Calvarium: The visualized calvarium at the skull base appears intact. Brain parenchyma: Partially visualized brain parenchyma the skull base is within normal limits. Sinuses and mastoids: There is opacification of the right maxillary antrum. A moderate left mastoid e ffusion is noted. Lung apices: Clear as visualized. IMPRESSION: There is no evidence of fracture or subluxation involving the cervical spine. ACT 112: Negative or not required by law. Electronically signed by: Misael Lopez M.D. 07/05/2020 10:36 PM
--- NOTE | 2020-07-05 22:46 | CT Scan Report ---
CT SCAN OF THE ABDOMEN AND PELVIS WITHOUT IV CONTRAST CLINICAL HISTORY: Vomiting. COMPARISON STUDY: Multiple prior abdominal CT scans, most recently dated 04/18/2020. TECHNIQUE: CT scan of the abdomen and pelvis is performed from the lung bases to the proximal femora. Images are reviewed in the axial, sagittal, and coronal planes. IV contrast was not administered for this examination. Note that the examination was performed in significantly suboptimal fashion withou t oral and IV contrast. A dose lowering technique was utilized adhering to the principles of ALARA. T he examination is degraded by large body habitus, and by streak artifact from the body wall abutting the CT gantry. FINDINGS: Lung bases: The heart is normal in size and without pericardial effusion. There is bibasilar atelecta sis, left greater than right. No airspace consolidation is seen typical for pneumonia and there is no pleural effusion. There is a small hiatal hernia. Liver: The unenhanced liver is enlarged, measuring 20.7 cm in length. The liver demonstrates diffusel y diminished attenuation consistent with hepatic steatosis. Fatty sparing is seen adjacent to gallbla dder fossa. There is no intrahepatic biliary ductal dilatation. Gallbladder: Contracted and grossly unremarkable. Spleen: Normal in size and attenuation. Pancreas: The unenhanced pancreas is atrophic and grossly unremarkable. Adrenal glands: Unremarkable. Kidneys: The unenhanced kidneys demonstrate cortical atrophy and are without hydronephrosis. A 5 mm n onobstructing calculus is noted in the right kidney. A punctate nonobstructing calculus is seen in th e left kidney. No ureteral stone is identified. There is no evidence of contour deforming renal mass lesion. Abdominal vasculature: The abdominal aorta is normal in course and caliber. Bowel: No bowel obstruction is seen. There is moderate colonic fecal retention. The appendix is not identified and reported surgically absent. Peritoneum: There is no intraperitoneal free air or abdominal ascites. There is fat-containing umbili shelbi hernia. Lymphadenopathy: None. Pelvic viscera: The bladder is decompressed around a Lloyd catheter and not well evaluated. Pericyst ic inflammation is noted. The prostate gland is diminutive. The seminal vesicles are normal as imaged . Skeletal structures: The skeletal structures are osteopenic. There is a mild chronic superior endplat e compression deformity of L1. No lytic or blastic lesions are seen. There is avascular necrosis of t he proximal femora. IMPRESSION: 1. Suboptimal examination without oral and IV contrast. 2. The bladder is decompressed around a Lloyd catheter. Pericystic inflammation is nonspecific. Corre late clinically and with urinalysis for evidence of cystitis. 3. Hepatomegaly and hepatic steatosis. 4. Bilateral nephrolithiasis. 5. Moderate constipation. No bowel obstruction is identified. 6. Avascular necrosis of the proximal femora. 7. Additional findings as above. Electronically signed by: Misael Lopez M.D. 07/05/2020 10:45 PM
[2020-07-05] MEDS ORDERED: PHYTONADIONE 5 MG in SODIUM CHLORIDE 0.9% 50 ML IV ONE (23:04)
[2020-07-05 23:28] LABS: Appearance Urine Turbid (Clear); Bacteria Urine Automated Negative (Negative); Bilirubin Urine Negative (Negative); Blood Urine 3+ (Negative); Color Urine Yellow; Glucose Urine UA Negative (Negative); Ketones Urine Negative (Negative); Leukocyte Esterase Urine 3+ (Negative); Nitrite Urine Negative (Negative); Protein Urine 1+ (Negative); RBC Urine Automated >30 /hpf (0-4); Specific Gravity Urine 1.015 (1.000-1.030); Urobilinogen Urine Negative (Negative); WBC Urine Automated >30 /hpf (0-5)
[2020-07-06] MEDS ORDERED: ALBUT/IPRATROP 3MG/0.5MG NEB 3 ML VIAL INH PRN (03:19)
[2020-07-06] MEDS ORDERED: ONDANSETRON INJ 2 MG/ML 2 ML VIAL IV PRN (03:19)
[2020-07-06] MEDS ORDERED: ACETAMINOPHEN 325 MG TAB PO PRN (03:19)
[2020-07-06] MEDS ORDERED: SENNA 8.6 MG TAB PO PRN (03:19)
[2020-07-06] MEDS ORDERED: NITROGLYCERIN SL 0.4 MG/TAB TAB SL PRN (03:19)
[2020-07-06] MEDS ORDERED: ALBUTEROL HFA 8 GM INHALER INH PRN (03:19)
[2020-07-06] MEDS ORDERED: NYSTATIN POWDER 15GM BTL EXT PRN (03:19)
[2020-07-06] MEDS ORDERED: POLYETHYLENE (MIRALAX) 17 GM PACK PO PRN (03:19)
[2020-07-06] MEDS ORDERED: oxyCODONE HCL IR 5 MG TAB (IMMEDIATE RELEASE) PO STA (03:35)
[2020-07-06] MEDS ORDERED: PIPERACILL/TAZOBAC CONSULT ACTIVE PRN (04:18)
[2020-07-06] MEDS ORDERED: GLUCOSE 40% GEL 15 GM TUBE PO PRN (04:30)
[2020-07-06] MEDS ORDERED: DEXTROSE 50% 50 ML SYRINGE IV PRN (04:30)
[2020-07-06] MEDS ORDERED: GLUCOSE 10 TABS/TUBE PO PRN (04:30)
[2020-07-06] MEDS ORDERED: CARBOHYDRATES FOR HYPOGLYCEMIA PO PRN (04:30)
[2020-07-06] MEDS ORDERED: PIPERACILLIN/TAZOBACTAM 4.5 GM in DEXTROSE 5% 100 ML IV ONE (04:30)
[2020-07-06] MEDS ORDERED: GLUCAGON FOR INJ 1 MG VIAL SQ PRN (04:30)
[2020-07-06] MEDS: PANTOprazole 40 MG TAB PO SCH (06:04)
--- NOTE | 2020-07-06 06:30 | History and Physical Report ---
DATE OF ADMISSION: 07/06/2020 CHIEF COMPLAINT: Chronic pain, chest pain and elevated INR. HISTORY OF PRESENT ILLNESS: This is a 49-year-old male with past medical history significant for right-sided heart failure, history of PE, on Coumadin, hypertension, COPD, chronic pain with opiate dependence, mood disorder, tobacco abuse, history of ESBL, history of sepsis secondary to urinary tract infection, chronic Lloyd, anemia, morbid obesity, noncompliant with medication and frequent hospitalizations. The patient also had a traumatic subdural hematoma and subarachnoid hematoma in setting of Coumadin use and was admitted to [facility] from 11/18/2019-12/04/2019. Currently, he was restarted on Coumadin. He has chronic indwelling Lloyd catheter, history of infection with enterococcus, multiple UTIs, patient's last admission was on 05/30/2020 and discharged on 06/01/2020. At that time, he was admitted with chest pain which is his chronic complaint and also elevated INR and some rectal bleed and UTI. He was seen by pain management for chronic pain and no pain medication was offered at that time and the patient signed out AMA. He was seen in the ER on 06/25/2020, complains of chest pain and flu-like symptoms and low-grade fevers because of his multiple similar complaints was discharged home, again comes back, complaining of chest pain, elevated INR. The patient received a dose of morphine, currently somewhat sleepy ,initially somewhat fumbling the words but later he was back to his usual self, complaints of chest pain, headache, abdominal pain. He also complains of shortness of breath on exertion, somewhat constipated. Says he has some low-grade fevers. Complains of sore throat, no earache, no runny nose, no cough. Currently, no nausea. His Lloyd catheter was changed yesterday, chronic swelling in the lower extremities. He is hemodynamically stable. Leukocytosis of 15. UA is positive again, but could be colonization. His INR was greater than 9.7. Requesting, crying, asking for pain medication. ALLERGIES: FENTANYL, NALOXONE, ACETAMINOPHEN, IBUPROFEN AND VALPROIC ACID. PAST MEDICAL HISTORY: As mentioned above. PAST SURGICAL HISTORY: Colonoscopy, EGDs, EGD with endoscopic ultrasound, foot surgery, left finger tendon repair, lumbar laminectomy last May. MEDICATIONS: On May he was discharged on duloxetine 60 mg p.o. a.m., MiraLax 17 grams p.o. a.m., nitroglycerin 0.4 mg sublingual p.r.n., nystatin 1 application topically t.i.d. p.r.n., cyclobenzaprine 10 mg p.o. b.i.d., DuoNebs 3 mL inhalation q. 6 hours p.r.n., magnesium oxide 400 mg p.o. a.m., Colace 100 mg p.o. b.i.d., Lactinex 1 tablet p.o. b.i.d., hydroxyzine 25 mg p.o. q.i.d. p.r.n., Flonase 2 sprays intranasal daily p.r.n., aspirin 81 mg p.o. a.m., Spiriva 1 puff inhalation daily, finasteride 5 mg p.o. a.m., Flomax 0.4 mg p.o. a.m., metoprolol succinate 50 mg p.o. b.i.d., spironolactone 25 mg p.o. a.m., Breo Ellipta 1 inhalation daily, glipizide 5 mg p.o. b.i.d., atorvastatin 80 mg p.o. a.m., Senokot 8.6 mg p.o. daily p.r.n., folic acid 1 mg p.o. a.m., Lasix 40 mg p.o. b.i.d., lorazepam 0.5 mg p.o. q. 8 hours p.r.n., Combivent Respimat 1 puff inhalation q.i.d., Coumadin 5 mg as directed, potassium chloride 20 mEq p.o. b.i.d., albuterol 2 puffs inhalation q. 4 hours p.r.n., Zofran 4 mg p.o. every 4 hours p.r.n., omeprazole 20 mg p.o. daily, Mucinex 600 mg p.o. q. 12 hours p.r.n., isosorbide dinitrate 30 mg p.o. a.m., gabapentin 800 mg p.o. t.i.d. FAMILY HISTORY: Significant for sister with breast cancer. Mother had musculoskeletal disorder. Maternal grandfather has [place], maternal grandmother has [place]. SOCIAL HISTORY: Lives with family. Still smokes 1-1-1/2 pack a day for last 30 years, history of DUIs in the past, but not currently drinking alcohol. The patient is dependent on prescription pain medications. REVIEW OF SYMPTOMS: As per HPI. Rest of review of symptoms negative. PHYSICAL EXAMINATION: GENERAL: The patient is morbidly obese, currently not in acute distress. VITAL SIGNS: Temperature 36.9, pulse 103, respiratory rate 18, blood pressure 124/77, oxygen 98% on room air. HEENT: Pupils equal, round, reactive to light. NECK: No JVD, no neck masses. CARDIOVASCULAR: S1, S2 heard, regular rate and rhythm, no murmur, no gallop. RESPIRATORY SYSTEM: Normal AP diameter. No accessory muscle use. No wheezing, no crackles. ABDOMEN: Soft, bowel sounds present, nontender. No distention. CENTRAL NERVOUS SYSTEM: Cranial nerves II-XII grossly intact, nonfocal. EXTREMITIES: Bilateral lower extremity +2 edema present, no erythema seen. LABORATORY DATA: WBC 15, hemoglobin 11.5, hematocrit 37.1, platelets 284. PT greater than 90, INR greater than 9.7, APTT 76.9. Sodium 139, potassium 4.2, chloride 108, bicarbonate 23, BUN 5, creatinine 0.9, serum glucose 122 calcium 8.8, total bilirubin 0.4, AST 24, ALT 24, alkaline phosphatase 123. Troponin I less than 0.015. Lipase 50. Urinalysis, +3 blood, +3 leukocyte esterase. IMAGING: CT of the abdomen and pelvis, the bladder is decompressed, on Lloyd catheter, pericystic inflammation is nonspecific, correlate clinically with urinalysis for evidence of cystitis. Hepatomegaly and hepatic steatosis, bilateral nephrolithiasis, moderate constipation, no bowel obstruction identified, avascular necrosis of the proximal femora. CT of the head, no acute intracranial abnormality, paranasal disease as above. Chest x-ray, no active disease in the chest. Cervical spine CT, no evidence of fracture or subluxation involving the cervical spine. EKG: Sinus tachycardia rhythm, occasional PVCs at a rate of 111, nonspecific T-wave abnormality. ASSESSMENT AND PLAN: This is a 49-year-old male who presents complaining of chest pain, chronic pain and elevated INR. 1. Chest pain. On EKG, no acute ST changes seen. Troponin is negative. chronic complaints of chest pain. We will follow the repeat troponin level, will observe in the hospital. 2. Elevated INR. INR greater than 9.7, history of elevated INR in the past. Received IV vitamin K in the ER. We will follow the repeat labs in a.m. If still elevated, we will give more of vitamin K, 3. history of PE, INR is supratherapeutic. 4. Possible urinary tract infection. White count is elevated at 15. His WBC usually around 12, and also UA is positive and CAT scan showing possible cystitis. Empirically started with Zosyn. The patient has history of E. coli, enterococcus in the past.Will follow cultures. 4. Right sided heart failure, lower extremity edema. Continue his home Lasix for now, Toprol-XL and isosorbide dinitrate. 5. COPD, on home inhalers and nebs as needed. 6. Depression. Continue duloxetine. 7. Hyperlipidemia. Continue statin. 8. Constipation. Stool softeners 9. Hypertension. Continue Toprol-XL, isosorbide mononitrate and diuretics. We will follow the blood pressure. 10. BPH. Continue finasteride. Follow with urology. 11. Chronic urinary retention, chronic Lloyd catheter.Followup with [facility] 12. Diabetes. Hold glipizide. Placed on insulin sliding scale. Follow the blood sugars. Follow the HbA1c levels. 13. Chronic pain syndrome. Last admission was not given any pain medication, seems to be his PCP also not prescribing anymore pain medications. He says he has an appointment with pain management on Wednesday, he wants to be seen by pain management in the hospital. 14. Tobacco abuse disorder. Needs counseling. 15. Morbid obesity. Needs counseling. 16. History of subdural hematoma and subarachnoid hemorrhage Currently, back on Coumadin. CT of the head is unremarkable today. 17. Chronic diastolic and right sided c congestive heart failure, To continue his home medication of Lasix, spironolactone, potassium supplements. we will monitor for volume overload. 18. Deep venous thrombosis prophylaxis. INR is supratherapeutic. DISPOSITION: Closely monitor in the medical floor. Expect discharge home and follow with family doctor. Level 1 full code. MTDD
[2020-07-06 08:09] LABS: Basophils # (auto) 0.04 K/uL (0-0.2); Basophils % (auto) 0.4 %; Eosinophils % (auto) 2.8 %; Hematocrit (blood only) 36.7 % (42-52); Hemoglobin 11.4 g/dL (14.0-18.0); Immature Granulocytes # (auto) 0.03 K/uL (0.00-0.02); Immature Granulocytes % (auto) 0.3 %; Lymphocytes # (auto) 2.62 K/uL (1.2-3.4); Lymphocytes % (auto) 24.3 %; Mean Corpuscular Hemoglobin 23.6 pg (25-34); Mean Corpuscular Hgb Conc 31.1 g/dL (32-36); Monocytes # (auto) 0.76 K/uL (0.11-0.59); Neutrophils # (auto) 7.05 K/uL (1.4-6.5); Neutrophils % (auto) 65.2 %; Platelet Count 223 K/uL (130-400); RDW Coefficient of Variation 20.3 % (11.5-14.5); RDW Standard Deviation 56.7 fL (36.4-46.3); Red Blood Count 4.83 M/uL (4.7-6.1)
[2020-07-06 08:31] LABS: Prothrombin Time 72.8 Seconds (9.0-12.0)
[2020-07-06 08:38] LABS: Anisocytosis Present
[2020-07-06] MEDS: ASPIRIN 81 MG ECTAB PO SCH (08:38)
[2020-07-06] MEDS: POTASSIUM CHLORIDE 20 MEQ TABCR PO SCH ×2 (08:38→21:06)
[2020-07-06] MEDS: DULoxetine HCL 60 MG CAP PO SCH (08:38)
[2020-07-06] MEDS: FUROSEMIDE 40 MG TAB PO SCH ×2 (08:39→17:27)
[2020-07-06] MEDS: METOPROLOL SUCC 50MG EXT REL TAB PO SCH (08:39)
[2020-07-06] MEDS: ISOSORBIDE DINITRATE 10 MG TAB PO SCH (08:39)
[2020-07-06] MEDS: FINASTERIDE 5 MG TAB PO SCH (08:39)
[2020-07-06] MEDS: DOCUSATE SODIUM 100 MG CAP PO SCH ×2 (08:40→21:05)
[2020-07-06] MEDS: FOLIC ACID 1 MG TAB PO SCH (08:40)
[2020-07-06] MEDS: SPIRONOLACTONE 25 MG TAB PO SCH (08:40)
[2020-07-06] MEDS: TAMSULOSIN HCL 0.4 MG CAP PO SCH (08:40)
[2020-07-06] MEDS: GABAPENTIN 800 MG TAB PO SCH ×3 (08:40→21:06)
[2020-07-06] MEDS: FLUTICASONE PROPIONATE NA SPR 16 GM BTL SCH (08:41)
[2020-07-06] MEDS: ADVANCED PROBIOTIC 1250 MG CAPSULE PO SCH ×2 (08:41→21:05)
[2020-07-06] MEDS: UMECLIDINIUM BROMIDE 62.5MCG/BLISTER 7 PUFFS/INHALER INH SCH (08:41)
[2020-07-06] MEDS: POLYETHYLENE (MIRALAX) 17 GM PACK PO SCH (08:42)
[2020-07-06 08:45] LABS: BUN Creatinine Ratio 7.4 (10-20); Blood Urea Nitrogen 7 mg/dl (7-18); Calcium 9.1 mg/dl (8.5-10.1); Carbon Dioxide 27 mmol/L (21-32); Chloride 109 mmol/L (98-107); Creatinine Clr Calc Pharmacy 178.3 ml/min; Est GFR (African American) 114.3; Est GFR (Non-African American) 98.6; Glucose 145 mg/dl (70-99); Magnesium 2.1 mg/dl (1.8-2.4); Potassium 4.1 mmol/L (3.5-5.1); Sodium 140 mmol/L (136-145)
[2020-07-06 08:50] LABS: Troponin I < 0.015 ng/ml (0-0.045)
[2020-07-06] MEDS: FAMOTIDINE 20 MG TAB PO SCH (08:52)
[2020-07-06 08:55] LABS: INR 7.7 (0.9-1.1)
[2020-07-06] MEDS: INSULIN ASPART 100 UNITS/ML 3 ML PEN SC SCH ×4 (09:29→21:11)
[2020-07-06 10:03] LABS: Estimated Average Glucose 148 mg/dl; Hemoglobin A1C 6.8 % (4.5-5.6)
[2020-07-06] MEDS: PIPERACILLIN/TAZOBACTAM 4.5 GM in DEXTROSE 5% 100 ML IV SCH ×2 (10:04→17:27)
--- NOTE | 2020-07-06 10:08 | Electrocardiogram Report ---
Test Reason : Blood Pressure : / mmHG Vent. Rate : 111 BPM Atrial Rate : 111 BPM P-R Int : 150 ms QRS Dur : 104 ms QT Int : 336 ms P-R-T Axes : 000 051 066 degrees QTc Int : 456 ms Sinus tachycardia with occasional Premature ventricular complexes RSR' or QR pattern in V1 suggests right ventricular conduction delay Nonspecific ST and T wave abnormality Abnormal ECG When compared with ECG of 25-JUN-2020 23:01, Premature ventricular complexes are now Present Confirmed by Bobby Proctor ([id number]) on 07/06/2020 10:08:13 AM Referred By: REFERRED SELF Confirmed By:Bobby Proctor
[2020-07-06] MEDS: HYDROmorphone INJ 1 MG/ML SYRINGE IV PRN ×2 (13:01→19:13)
[2020-07-06] MEDS: methylPREDNISolone 40 MG in SYRINGE 0 ML IV SCH ×2 (14:27→21:08)
--- NOTE | 2020-07-06 14:57 | Hospitalist Progress Note ---
Date of Service July 07, 2020 July 06, 2020 Assessment & Plan (1) Chest pain: Admitted with chest pain with history of recurrent chest pain Cardiac troponins and EKG are unremarkable Doubt any ACS Did not have any more chest pain (2) Lumbar radiculopathy: Has history of chronic back pain with radiculopathy Complains to have more pain for the last few days Has an appointment with pain therapist as an outpatient on Wednesday We will try small dose of Dilaudid every 6 hourly as needed for pain He will not be given any continued pain medications on discharge (3) Possible urinary tract infection: Catheter associated UTI UA suggestive of infection and has been getting Zosyn Await culture and sensitivity-urine culture is showing pinpoint growth Will await for full culture and sensitivity (4) Supratherapeutic INR: History of pulmonary embolism and on Coumadin INR is more than 9 on admission and received vitamin K We will monitor INR-INR went up to 8.9 as on 07/07/2020 Will give 5 mg vitamin K intravenously (5) COPD exacerbation: Has increasing wheezing Likely has mild exacerbation of COPD Will start a small dose of intravenous Solu-Medrol Continue with bronchodilators (6) DM type 2 (diabetes mellitus, type 2): SSI Other significant medical conditions remain stable We will continue most of his outpatient medications Admission and Anticipated Discharge Date Admission Date: July 06, 2020 Subjective 07/06/2020 The patient was seen and examined in medical floor He was admitted early this morning with multitude of symptoms including Acute on chronic pain, chest pain noted to have increased and INR He has been complaining of more pain involving back, foot and hips He also has increasing wheezing 07/07/2020 The patient was seen and examined in medical floor in presence of the nurse Complains of cough and seen trial abdominal swelling Denies any other symptoms Pain seems to be reasonably controlled Review of Systems Review of Systems: Systems reviewed And are unremarkable except as noted below Respiratory: + dyspnea on exertion and + wheezing Cardiovascular: no chest pain and no palpitations Musculoskeletal: + back pain (Back pain with radiation to the legs) and + joint pain ( Right foot pain) Physical Exam Physical Exam: Lying in bed with acute distress due to increasing pain Constitutional: well developed, well nourished, + acute distress ( right foot painDue to back pain with radiculopathy and right foot pain) and + morbidly obese Eyes: PERRL, conjunctivae normal, anicteric sclerae ENMT: external ear and nose normal, oropharynx normal Neck: trachea midline, no thyromegaly Respiratory: normal respiratory effort Auscultation: + diminished lung sounds and + wheezes (To moderate wheezing all over) Cardiovascular: Rate/Rhythm: regular rate and regular rhythm Heart Sounds: no murmur Extremities: + edema Gastrointestinal (Abdomen): Inspection/Auscultation: abdomen normal to inspection, + abdomen distended (Has ventral hernia.) and normal bowel sounds Percussion/Palpation: abdomen soft; abdomen nontender Musculoskeletal: Has significant back pain,Pain is worse with spinal movement Neurologic: moves all extremities; no focal motor deficits Lymphatic: no cervical or axillary lymphadenopathy Results & Data Results & Data ([facility]) Vital Signs (Past 12 Hours) Vital Signs Temp Pulse Pulse Resp BP BP Pulse Ox 07/06/20 08:16 36.7 C 89 18 112/65 99 07/06/20 03:10 36.9 C 103 H 18 124/77 98 07/06/20 02:56 92 H 20 114/67 91 Laboratory Results Short CBC 07/05/20 07/06/20 Range/Units 21:35 07:45 WBC 15.02 H 10.80 (4.8-10.8) K/uL Hgb 11.5 L 11.4 L (14.0-18.0) g/dL Hct 37.1 L 36.7 L (42-52) % Plt Count 284 223 (130-400) K/uL BMP 07/05/20 07/06/20 21:35 07:45 Sodium 139 140 Potassium 4.2 4.1 Chloride 108 H 109 H Carbon Dioxide 23 27 BUN 5 L 7 Creatinine 0.91 0.91 Glucose 122 H 145 H Calcium 8.8 9.1 Cardiac Enzymes 07/05/20 07/06/20 Range/Units 21:35 07:45 Total Creatine Kinase 297 (39-308) U/L Troponin I < 0.015 < 0.015 (0-0.045) ng/ml Liver Function 07/05/20 Range/Units 21:35 Total Bilirubin 0.4 (0.2-1) mg/dl AST 24 (15-37) U/L ALT 24 (12-78) U/L Alkaline Phosphatase 123 H (45-117) U/L Albumin 2.8 L (3.4-5.0) gm/dl Urine 07/05/20 Range/Units 20:55 Urine Color Yellow Urine Appearance Turbid A (Clear) Urine pH 5.0 (4.5-7.5) Ur Specific [place] 1.015 (1.000-1.030) Urine Protein 1+ H (Negative) Urine Glucose (UA) Negative (Negative) INR is increased to 8.9 on 07/07/2020 Medications Administered Current Inpatient Medications Acetaminophen (Acetaminophen 325 Mg Tab) 650 mg PO Q4H PRN PRN Reason: pain/fever Stop: 08/05/20 03:18 Albuterol (Albuterol Hfa 8 Gm Inhaler) 2 puffs INH Q4 PRN PRN Reason: Dyspnea Stop: 08/05/20 03:18 Albuterol (Albut/Ipratrop 3mg/0.5mg Neb 3 Ml Vial) 3 ml INH Q6H PRN PRN Reason: Shortness Of Breath Or Wheezing Stop: 08/05/20 03:18 Aspirin (Aspirin 81 Mg Ectab) 81 mg PO QAM [facility] Stop: 08/05/20 08:59 Last Admin: 07/06/20 08:38 Dose: 81 mg Documented by: Atorvastatin Calcium (Atorvastatin 40 Mg Tab) 80 mg PO QPM [facility] Stop: 08/05/20 20:59 Dextrose (Dextrose 50% 50 Ml Syringe) 25 - 50 ml IV UD PRN; Protocol PRN Reason: Hypoglycemia Protocol Stop: 08/05/20 04:29 Docusate Sodium (Docusate Sodium 100 Mg Cap) 100 mg PO BID [facility] Stop: 08/05/20 08:59 Last Admin: 07/06/20 08:40 Dose: 100 mg Documented by: Duloxetine HCl (Duloxetine Hcl 60 Mg Cap) 60 mg PO DAILY [facility] Stop: 08/05/20 08:59 Last Admin: 07/06/20 08:38 Dose: 60 mg Documented by: Famotidine (Famotidine 20 Mg Tab) 20 mg PO DAILY [facility] Stop: 08/05/20 08:59 Last Admin: 07/06/20 08:52 Dose: 20 mg Documented by: Finasteride (Finasteride 5 Mg Tab) 5 mg PO QAM [facility] Stop: 08/05/20 08:59 Last Admin: 07/06/20 08:39 Dose: 5 mg Documented by: Fluticasone Propionate (Fluticasone Propionate Na Spr 16 Gm Btl) 2 sprays NA DAILY [facility] Stop: 08/05/20 08:59 Last Admin: 07/06/20 08:41 Dose: 2 sprays Documented by: Folic Acid (Folic Acid 1 Mg Tab) 1 mg PO QAM [facility] Stop: 08/05/20 08:59 Last Admin: 07/06/20 08:40 Dose: 1 mg Documented by: Furosemide (Furosemide 40 Mg Tab) 40 mg PO BID17 [facility] Stop: 08/05/20 08:59 Last Admin: 07/06/20 08:39 Dose: 40 mg Documented by: Gabapentin (Gabapentin 800 Mg Tab) 800 mg PO TID [facility] Stop: 08/05/20 08:59 Last Admin: 07/06/20 13:01 Dose: 800 mg Documented by: Glucagon (Glucagon For Inj 1 Mg Vial) 1 mg SQ UD PRN; Protocol PRN Reason: Hypoglycemia Protocol Stop: 08/05/20 04:29 Glucose (Glucose 40% Gel 15 Gm Tube) 15 - 30 gm PO UD PRN; Protocol PRN Reason: Hypoglycemia Protocol Stop: 08/05/20 04:29 Glucose (Glucose 10 Tabs/Tube) 4 - 8 tabs PO UD PRN; Protocol PRN Reason: Hypoglycemia Protocol Stop: 08/05/20 04:29 Guaifenesin (Guaifenesin 600 Mg Tabcr) 600 mg PO Q12H PRN PRN Reason: Congestion Stop: 08/05/20 03:18 Hydromorphone HCl (Hydromorphone Inj 1 Mg/Ml Syringe) 1 mg IV Q6H PRN PRN Reason: Pain Stop: 07/20/20 11:32 Last Admin: 07/06/20 13:01 Dose: 1 mg Documented by: Hydroxyzine HCl (Hydroxyzine Hcl 25 Mg Tab) 25 mg PO QID PRN PRN Reason: Anxiety Stop: 08/05/20 03:18 Piperacillin Sod/Tazobactam (Sod 4.5 gm/ Dextrose) 120 mls @ 30 mls/hr IV Q8H [facility]; Protocol Stop: 07/16/20 09:59 Last Infusion: 07/06/20 14:13 Dose: Infused Documented by: Methylprednisolone 40 mg/ (Syringe) 0.64 mls @ 1.5 mls/min IV Q8H [facility] Stop: 08/05/20 13:59 Last Admin: 07/06/20 14:27 Dose: 1.5 mls/min Documented by: Insulin Aspart (Insulin Aspart 100 Units/Ml 3 Ml Pen) 0 units SC ACHS [facility] Stop: 08/05/20 07:29 Last Admin: 07/06/20 12:35 Dose: 4 units Documented by: Isosorbide Dinitrate (Isosorbide Dinitrate 10 Mg Tab) 30 mg PO QAM [facility] Stop: 08/05/20 08:59 Last Admin: 07/06/20 08:39 Dose: 30 mg Documented by: Lactobacillus Acidoph/Casei/Rhamnos (Advanced Probiotic 1250 Mg Capsule) 2 cap PO BID [facility] Stop: 08/05/20 08:59 Last Admin: 07/06/20 08:41 Dose: 2 cap Documented by: Lorazepam (Lorazepam 0.5 Mg Tab) 0.5 mg PO Q8 PRN PRN Reason: Anxiety Stop: 08/05/20 03:18 Metoprolol Succinate (Metoprolol Succ 50mg Ext Rel Tab) 50 mg PO DAILY [facility] Stop: 08/05/20 08:59 Last Admin: 07/06/20 08:39 Dose: 50 mg Documented by: Miscellaneous (Carbohydrates For Hypoglycemia ) 15 - 30 gm PO UD PRN PRN Reason: Hypoglycemia Treatment Stop: 08/05/20 04:29 Miscellaneous Information (Piperacill/Tazobac Consult Active) 1 ea N/A UD PRN PRN Reason: Consult Stop: 08/05/20 04:17 Nitroglycerin (Nitroglycerin Sl 0.4 Mg/Tab Tab) 0.4 mg SL UD PRN PRN Reason: CHEST PAIN Stop: 08/05/20 03:18 Nystatin (Nystatin Powder 15gm Btl) 1 appln EXT TID PRN PRN Reason: Skin Irritation Stop: 08/05/20 03:18 Ondansetron HCl (Ondansetron Inj 2 Mg/Ml 2 Ml Vial) 4 mg IV Q6H PRN PRN Reason: Nausea Stop: 08/05/20 03:18 Pantoprazole Sodium (Pantoprazole 40 Mg Tab) 40 mg PO DAILYBB [facility] Stop: 08/05/20 06:29 Last Admin: 07/06/20 06:04 Dose: 40 mg Documented by: Polyethylene Glycol (Polyethylene (Miralax) 17 Gm Pack) 17 gm PO DAILY PRN PRN Reason: Constipation Stop: 08/05/20 03:18 Polyethylene Glycol (Polyethylene (Miralax) 17 Gm Pack) 17 gm PO QAM [facility] Stop: 08/05/20 08:59 Last Admin: 07/06/20 08:42 Dose: 17 gm Documented by: Potassium Chloride (Potassium Chloride 20 Meq Tabcr) 20 meq PO BID [facility] Stop: 08/05/20 08:59 Last Admin: 07/06/20 08:38 Dose: 20 meq Documented by: Sennosides (Senna 8.6 Mg Tab) 8.6 mg PO DAILY PRN PRN Reason: Constipation Stop: 08/05/20 03:18 Spironolactone (Sp[facility] 25 Mg Tab) [facility] Stop: 08/05/20 08:59 Last Admin: 07/06/20 08:40 Dose: 25 mg Documented by: Tamsulosin HCl (Tamsulosin Hcl 0.4 Mg Cap) [facility] Stop: 08/05/20 08:59 Last Admin: 07/06/20 08:40 Dose: 0.4 mg Documented by: Umeclidinium [place] (Umeclidinium [place] 62.5mcg/Blister 7 Puffs/Inhaler) 1 [facility] Stop: 08/05/20 08:59 Last Admin: 07/06/20 08:41 Dose: 1 puffs Documented by: Current Inpatient Medications Acetaminophen (Acetaminophen 325 Mg Tab) 650 mg PO Q4H PRN PRN Reason: pain/fever Stop: 08/05/20 03:18 Albuterol (Albuterol Hfa 8 Gm Inhaler) 2 puffs INH Q4 PRN PRN Reason: Dyspnea Stop: 08/05/20 03:18 Albuterol (Albut/Ipratrop 3mg/0.5mg Neb 3 Ml Vial) 3 ml INH Q6H PRN PRN Reason: Shortness Of Breath Or Wheezing Stop: 08/05/20 03:18 Aspirin (Aspirin 81 Mg Ectab) 81 mg PO QAM [facility] Stop: 08/05/20 08:59 Last Admin: 07/06/20 08:38 Dose: 81 mg Documented by: Atorvastatin Calcium (Atorvastatin 40 Mg Tab) 80 mg PO QPM [facility] Stop: 08/05/20 20:59 Dextrose (Dextrose 50% 50 Ml Syringe) 25 - 50 ml IV UD PRN; Protocol PRN Reason: Hypoglycemia Protocol Stop: 08/05/20 04:29 Docusate Sodium (Docusate Sodium 100 Mg Cap) 100 mg PO BID [facility] Stop: 08/05/20 08:59 Last Admin: 07/06/20 08:40 Dose: 100 mg Documented by: Duloxetine HCl (Duloxetine Hcl 60 Mg Cap) 60 mg PO DAILY [facility] Stop: 08/05/20 08:59 Last Admin: 07/06/20 08:38 Dose: 60 mg Documented by: Famotidine (Famotidine 20 Mg Tab) 20 mg PO DAILY [facility] Stop: 08/05/20 08:59 Last Admin: 07/06/20 08:52 Dose: 20 mg Documented by: Finasteride (Finasteride 5 Mg Tab) 5 mg PO QAM [facility] Stop: 08/05/20 08:59 Last Admin: 07/06/20 08:39 Dose: 5 mg Documented by: Fluticasone Propionate (Fluticasone Propionate Na Spr 16 Gm Btl) 2 sprays NA DAILY [facility] Stop: 08/05/20 08:59 Last Admin: 07/06/20 08:41 Dose: 2 sprays Documented by: Folic Acid (Folic Acid 1 Mg Tab) 1 mg PO QAM [facility] Stop: 08/05/20 08:59 Last Admin: 07/06/20 08:40 Dose: 1 mg Documented by: Furosemide (Furosemide 40 Mg Tab) 40 mg PO BID17 [facility] Stop: 08/05/20 08:59 Last Admin: 07/06/20 08:39 Dose: 40 mg Documented by: Gabapentin (Gabapentin 800 Mg Tab) 800 mg PO TID [facility] Stop: 08/05/20 08:59 Last Admin: 07/06/20 13:01 Dose: 800 mg Documented by: Glucagon (Glucagon For Inj 1 Mg Vial) 1 mg SQ UD PRN; Protocol PRN Reason: Hypoglycemia Protocol Stop: 08/05/20 04:29 Glucose (Glucose 40% Gel 15 Gm Tube) 15 - 30 gm PO UD PRN; Protocol PRN Reason: Hypoglycemia Protocol Stop: 08/05/20 04:29 Glucose (Glucose 10 Tabs/Tube) 4 - 8 tabs PO UD PRN; Protocol PRN Reason: Hypoglycemia Protocol Stop: 08/05/20 04:29 Guaifenesin (Guaifenesin 600 Mg Tabcr) 600 mg PO Q12H PRN PRN Reason: Congestion Stop: 08/05/20 03:18 Hydromorphone HCl (Hydromorphone Inj 1 Mg/Ml Syringe) 1 mg IV Q6H PRN PRN Reason: Pain Stop: 07/20/20 11:32 Last Admin: 07/06/20 13:01 Dose: 1 mg Documented by: Hydroxyzine HCl (Hydroxyzine Hcl 25 Mg Tab) 25 mg PO QID PRN PRN Reason: Anxiety Stop: 08/05/20 03:18 Piperacillin Sod/Tazobactam (Sod 4.5 gm/ Dextrose) 120 mls @ 30 mls/hr IV Q8H [facility]; Protocol Stop: 07/16/20 09:59 Last Infusion: 07/06/20 14:13 Dose: Infused Documented by: Methylprednisolone 40 mg/ (Syringe) 0.64 mls @ 1.5 mls/min IV Q8H [facility] Stop: 08/05/20 13:59 Last Admin: 07/06/20 14:27 Dose: 1.5 mls/min Documented by: Insulin Aspart (Insulin Aspart 100 Units/Ml 3 Ml Pen) 0 units SC ACHS [facility] Stop: 08/05/20 07:29 Last Admin: 07/06/20 12:35 Dose: 4 units Documented by: Isosorbide Dinitrate (Isosorbide Dinitrate 10 Mg Tab) 30 mg PO QAM [facility] Stop: 08/05/20 08:59 Last Admin: 07/06/20 08:39 Dose: 30 mg Documented by: Lactobacillus Acidoph/Casei/Rhamnos (Advanced Probiotic 1250 Mg Capsule) 2 cap PO BID [facility] Stop: 08/05/20 08:59 Last Admin: 07/06/20 08:41 Dose: 2 cap Documented by: Lorazepam (Lorazepam 0.5 Mg Tab) 0.5 mg PO Q8 PRN PRN Reason: Anxiety Stop: 08/05/20 03:18 Metoprolol Succinate (Metoprolol Succ 50mg Ext Rel Tab) 50 mg PO DAILY [facility] Stop: 08/05/20 08:59 Last Admin: 07/06/20 08:39 Dose: 50 mg Documented by: Miscellaneous (Carbohydrates For Hypoglycemia ) 15 - 30 gm PO UD PRN PRN Reason: Hypoglycemia Treatment Stop: 08/05/20 04:29 Miscellaneous Information (Piperacill/Tazobac Consult Active) 1 ea N/A UD PRN PRN Reason: Consult Stop: 08/05/20 04:17 Nitroglycerin (Nitroglycerin Sl 0.4 Mg/Tab Tab) 0.4 mg SL UD PRN PRN Reason: CHEST PAIN Stop: 08/05/20 03:18 Nystatin (Nystatin Powder 15gm Btl) 1 appln EXT TID PRN PRN Reason: Skin Irritation Stop: 08/05/20 03:18 Ondansetron HCl (Ondansetron Inj 2 Mg/Ml 2 Ml Vial) 4 mg IV Q6H PRN PRN Reason: Nausea Stop: 08/05/20 03:18 Pantoprazole Sodium (Pantoprazole 40 Mg Tab) 40 mg PO DAILYBB [facility] Stop: 08/05/20 06:29 Last Admin: 07/06/20 06:04 Dose: 40 mg Documented by: Polyethylene Glycol (Polyethylene (Miralax) 17 Gm Pack) 17 gm PO DAILY PRN PRN Reason: Constipation Stop: 08/05/20 03:18 Polyethylene Glycol (Polyethylene (Miralax) 17 Gm Pack) 17 gm PO QAM [facility] Stop: 08/05/20 08:59 Last Admin: 07/06/20 08:42 Dose: 17 gm Documented by: Potassium Chloride (Potassium Chloride 20 Meq Tabcr) 20 meq PO BID [facility] Stop: 08/05/20 08:59 Last Admin: 07/06/20 08:38 Dose: 20 meq Documented by: Sennosides (Senna 8.6 Mg Tab) 8.6 mg PO DAILY PRN PRN Reason: Constipation Stop: 08/05/20 03:18 Spironolactone (Spiron[facility]actone 25 Mg Tab) [facility] Stop: 08/05/20 08:59 Last Admin: 07/06/20 08:40 Dose: 25 mg Documented by: Tamsulosin HCl (Tamsulosin Hcl 0.4 Mg Cap) 0.4 mg PO QAM [facility] Stop: 08/05/20 08:59 Last Admin: 07/06/20 08:40 Dose: 0.4 mg Documented by: Umeclidinium [place] (Umeclidinium [place] 62.5mcg/Blister 7 Puffs/Inhaler) 1 puffs INH QAM [facility] Stop: 08/05/20 08:59 Last Admin: 07/06/20 08:41 Dose: 1 puffs Documented by: (1) Chest pain Chest pain type: unspecified Qualified Code(s): R07.9 - Chest pain, unspecified
[2020-07-06] MEDS: LORazepam 0.5 MG TAB PO PRN (15:34)
[2020-07-06] MEDS: guaiFENesin 600 MG TABCR PO PRN (17:44)
[2020-07-06] MEDS: ATORVASTATIN 40 MG TAB PO SCH (21:05)
[2020-07-06] MEDS: hydrOXYzine HCl 25 MG TAB PO PRN (21:06)
[2020-07-06] MEDS: NICOTINE 21 MG/24 HR TDSY TD SCH (21:57)
[2020-07-07] MEDS: PIPERACILLIN/TAZOBACTAM 4.5 GM in DEXTROSE 5% 100 ML IV SCH ×3 (01:54→17:22)
[2020-07-07] MEDS: HYDROmorphone INJ 1 MG/ML SYRINGE IV PRN ×2 (04:28→10:34)
[2020-07-07] MEDS: PANTOprazole 40 MG TAB PO SCH (05:36)
[2020-07-07] MEDS: methylPREDNISolone 40 MG in SYRINGE 0 ML IV SCH ×3 (05:36→21:16)
[2020-07-07] MEDS: guaiFENesin 600 MG TABCR PO PRN ×3 (05:58→23:57)
[2020-07-07 07:58] LABS: Prothrombin Time 83.1 Seconds (9.0-12.0)
[2020-07-07 08:03] LABS: INR 8.9 (0.9-1.1)
[2020-07-07] MEDS ORDERED: PHYTONADIONE 5 MG TAB PO STA (08:08)
[2020-07-07] MEDS: FLUTICASONE PROPIONATE NA SPR 16 GM BTL SCH (08:42)
[2020-07-07] MEDS: UMECLIDINIUM BROMIDE 62.5MCG/BLISTER 7 PUFFS/INHALER INH SCH (08:42)
[2020-07-07] MEDS: METOPROLOL SUCC 50MG EXT REL TAB PO SCH (08:43)
[2020-07-07] MEDS: FOLIC ACID 1 MG TAB PO SCH (08:43)
[2020-07-07] MEDS: ADVANCED PROBIOTIC 1250 MG CAPSULE PO SCH ×2 (08:43→21:15)
[2020-07-07] MEDS: SPIRONOLACTONE 25 MG TAB PO SCH (08:43)
[2020-07-07] MEDS: DOCUSATE SODIUM 100 MG CAP PO SCH ×2 (08:43→21:16)
[2020-07-07] MEDS: FUROSEMIDE 40 MG TAB PO SCH ×2 (08:44→16:32)
[2020-07-07] MEDS: POTASSIUM CHLORIDE 20 MEQ TABCR PO SCH ×2 (08:44→21:15)
[2020-07-07] MEDS: DULoxetine HCL 60 MG CAP PO SCH (08:44)
[2020-07-07] MEDS: TAMSULOSIN HCL 0.4 MG CAP PO SCH (08:44)
[2020-07-07] MEDS: GABAPENTIN 800 MG TAB PO SCH ×3 (08:44→21:15)
[2020-07-07] MEDS: ISOSORBIDE DINITRATE 10 MG TAB PO SCH (08:44)
[2020-07-07] MEDS: FINASTERIDE 5 MG TAB PO SCH (08:44)
[2020-07-07] MEDS: POLYETHYLENE (MIRALAX) 17 GM PACK PO SCH (08:45)
[2020-07-07] MEDS: FAMOTIDINE 20 MG TAB PO SCH (08:45)
[2020-07-07] MEDS ORDERED: PHYTONADIONE 5 MG in SODIUM CHLORIDE 0.9% 50 ML IV ONE (08:45)
[2020-07-07] MEDS: NICOTINE 21 MG/24 HR TDSY TD SCH (08:47)
[2020-07-07] MEDS: INSULIN ASPART 100 UNITS/ML 3 ML PEN SC SCH ×4 (09:02→21:13)
[2020-07-07] MEDS: ASPIRIN 81 MG ECTAB PO SCH (09:53)
[2020-07-07] MEDS ORDERED: oxyCODONE HCL SOLN 5 MG/5 ML UDC PO PRN (16:05)
[2020-07-07] MEDS: oxyCODONE HCL IR 5 MG TAB (IMMEDIATE RELEASE) PO PRN ×2 (16:30→22:24)
[2020-07-07] MEDS: LORazepam 0.5 MG TAB PO PRN (17:22)
[2020-07-07] MEDS: ATORVASTATIN 40 MG TAB PO SCH (21:16)
[2020-07-07] MEDS: guaiFENesin/DEXTROM SYRUP 200MG/20MG 10ML UDC PO PRN (23:59)
[2020-07-08] MEDS: PIPERACILLIN/TAZOBACTAM 4.5 GM in DEXTROSE 5% 100 ML IV SCH ×2 (02:34→10:26)
[2020-07-08] MEDS: methylPREDNISolone 40 MG in SYRINGE 0 ML IV SCH ×3 (05:59→21:21)
[2020-07-08] MEDS: PANTOprazole 40 MG TAB PO SCH (05:59)
[2020-07-08] MEDS: oxyCODONE HCL IR 5 MG TAB (IMMEDIATE RELEASE) PO PRN ×3 (06:00→17:58)
[2020-07-08 06:27] LABS: Basophils # (auto) 0.01 K/uL (0-0.2); Basophils % (auto) 0.1 %; Hemoglobin 12.2 g/dL (14.0-18.0); Immature Granulocytes # (auto) 0.06 K/uL (0.00-0.02); Immature Granulocytes % (auto) 0.4 %; Lymphocytes # (auto) 1.94 K/uL (1.2-3.4); Lymphocytes % (auto) 12.8 %; Mean Corpuscular Hemoglobin 23.4 pg (25-34); Mean Corpuscular Hgb Conc 30.5 g/dL (32-36); Mean Corpuscular Volume 76.6 fL (80-100); Mean Platelet Volume 10.7 fL (7.4-10.4); Monocytes # (auto) 0.86 K/uL (0.11-0.59); Monocytes % (auto) 5.7 %; Neutrophils # (auto) 12.26 K/uL (1.4-6.5); Platelet Count 273 K/uL (130-400); RDW Coefficient of Variation 20.2 % (11.5-14.5); RDW Standard Deviation 56.9 fL (36.4-46.3); Red Blood Count 5.22 M/uL (4.7-6.1); White Blood Count 15.13 K/uL (4.8-10.8)
[2020-07-08 06:38] LABS: INR 3.1 (0.9-1.1); Prothrombin Time 30.8 Seconds (9.0-12.0)
[2020-07-08 06:53] LABS: Anisocytosis Present
[2020-07-08 06:58] LABS: Calcium 9.2 mg/dl (8.5-10.1); Est GFR (African American) 97.3; Est GFR (Non-African American) 83.9; Potassium 4.6 mmol/L (3.5-5.1)
[2020-07-08] MEDS: DULoxetine HCL 60 MG CAP PO SCH (08:20)
[2020-07-08] MEDS: ASPIRIN 81 MG ECTAB PO SCH (08:20)
[2020-07-08] MEDS: DOCUSATE SODIUM 100 MG CAP PO SCH ×2 (08:20→21:22)
[2020-07-08] MEDS: SPIRONOLACTONE 25 MG TAB PO SCH (08:20)
[2020-07-08] MEDS: TAMSULOSIN HCL 0.4 MG CAP PO SCH (08:21)
[2020-07-08] MEDS: FOLIC ACID 1 MG TAB PO SCH (08:22)
[2020-07-08] MEDS: FLUTICASONE PROPIONATE NA SPR 16 GM BTL SCH (08:22)
[2020-07-08] MEDS: ISOSORBIDE DINITRATE 10 MG TAB PO SCH (08:23)
[2020-07-08] MEDS: UMECLIDINIUM BROMIDE 62.5MCG/BLISTER 7 PUFFS/INHALER INH SCH (08:23)
[2020-07-08] MEDS: POTASSIUM CHLORIDE 20 MEQ TABCR PO SCH ×2 (08:24→21:22)
[2020-07-08] MEDS: FUROSEMIDE 40 MG TAB PO SCH ×2 (08:24→17:13)
[2020-07-08] MEDS: POLYETHYLENE (MIRALAX) 17 GM PACK PO SCH (08:25)
[2020-07-08] MEDS: GABAPENTIN 800 MG TAB PO SCH ×3 (08:27→21:21)
[2020-07-08] MEDS: FAMOTIDINE 20 MG TAB PO SCH (08:28)
[2020-07-08] MEDS: FINASTERIDE 5 MG TAB PO SCH (08:34)
[2020-07-08] MEDS: ADVANCED PROBIOTIC 1250 MG CAPSULE PO SCH ×2 (08:34→21:21)
[2020-07-08] MEDS: NICOTINE 21 MG/24 HR TDSY TD SCH (08:35)
[2020-07-08] MEDS: METOPROLOL SUCC 50MG EXT REL TAB PO SCH (08:35)
[2020-07-08] MEDS: guaiFENesin 600 MG TABCR PO PRN (08:36)
[2020-07-08] MEDS: INSULIN ASPART 100 UNITS/ML 3 ML PEN SC SCH ×5 (08:39→21:17)
[2020-07-08] MEDS: LORazepam 0.5 MG TAB PO PRN (09:25)
[2020-07-08] MEDS: guaiFENesin/DEXTROM SYRUP 200MG/20MG 10ML UDC PO PRN (09:26)
--- NOTE | 2020-07-08 12:32 | XRay Report ---
XR chest 1V portable HISTORY: 49 years-old Male CHF acute shortness of breath with congestive heart failure COMPARISON: Chest radiograph 07/05/2020 TECHNIQUE: Portable AP view of the chest FINDINGS: Cardiac silhouette is mildly enlarged, unchanged. No pneumothorax, definite pleural effusion or overt pulmonary edema. Unchanged blunting of the costophrenic angles. Subsegmental bibasilar opacities. Wagner yuliya appear grossly intact. IMPRESSION: 1. Cardiomegaly without overt pulmonary edema. 2. Mild subsegmental bibasilar atelectasis. ACT 112: Negative or not required by law. The above report was generated using voice recognition software. It may contain grammatical, syntax o r spelling errors. Electronically signed by: Kem Apodaca M.D. 07/08/2020 12:31 PM
[2020-07-08] MEDS ORDERED: INSULIN HUMAN REGULAR PER UNIT 10 UNITS in SYRINGE 9.9 ML IV STA (14:45)
--- NOTE | 2020-07-08 15:27 | Hospitalist Progress Note ---
Date of Service July 08, 2020 Assessment & Plan (1) Chest pain: Admitted with chest pain with history of recurrent chest pain Cardiac troponins and EKG are unremarkable Doubt any ACS Did not have any more chest pain (2) Lumbar radiculopathy: Has history of chronic back pain with radiculopathy Complains to have more pain for the last few days Has an appointment with pain therapist as an outpatient on Wednesday We will try small dose of Dilaudid every 6 hourly as needed for pain He will not be given any continued pain medications on discharge His pain is controlled with oxycodone 10 mg every 6 hourly as needed Was strongly advised to keep appointment with outpatient pain therapist (3) Possible urinary tract infection: Catheter associated UTI UA suggestive of infection and has been getting Zosyn Await culture and sensitivity-urine culture is showing pinpoint growth Will await for full culture and sensitivity-culture has been negative Will discontinue antibiotic (4) Supratherapeutic INR: History of pulmonary embolism and on Coumadin INR is more than 9 on admission and received vitamin K We will monitor INR-INR went up to 8.9 as on 07/07/2020 Will give 5 mg vitamin K intravenously NR is 3.1 today (5) COPD exacerbation: Has increasing wheezing Likely has mild exacerbation of COPD Will start a small dose of intravenous Solu-Medrol Continue with bronchodilators Has history of diastolic heart failure Chest x-ray showed cardiomegaly with possible congestive changes Will give additional 40 mg Lasix intravenously Be discharged tomorrow (6) DM type 2 (diabetes mellitus, type 2): SSI Other significant medical conditions remain stable We will continue most of his outpatient medications Admission and Anticipated Discharge Date Admission Date: July 06, 2020 Subjective 07/06/2020 The patient was seen and examined in medical floor He was admitted early this morning with multitude of symptoms including Acute on chronic pain, chest pain noted to have increased and INR He has been complaining of more pain involving back, foot and hips He also has increasing wheezing 07/07/2020 The patient was seen and examined in medical floor in presence of the nurse Complains of cough and seen trial abdominal swelling Denies any other symptoms Pain seems to be reasonably controlled 07/08/2020 The patient was seen and examined in medical floor He complains to have congestion in the chest with audible wheezing and also minor rash involving the left hand and adjoining area Denies any fever and/or chills His pain seems to be under control Review of Systems Review of Systems: Systems reviewed And are unremarkable except as noted below Respiratory: + dyspnea on exertion and + wheezing Musculoskeletal: + back pain (Back pain with radiation to the legs) and + joint pain ( Right foot pain) Physical Exam Physical Exam: Lying in bed with acute distress due to increasing pain Constitutional: well developed, well nourished, + acute distress ( right foot painDue to back pain with radiculopathy and right foot pain) and + morbidly obese Eyes: PERRL, conjunctivae normal, anicteric sclerae ENMT: external ear and nose normal, oropharynx normal Neck: trachea midline, no thyromegaly Respiratory: normal respiratory effort Auscultation: + diminished lung sounds, + crackles (Very minimal bibasilar crackles), + rhonchi (Transmitted sounds from tracheal secretions) and + wheezes (To moderate wheezing all over) Cardiovascular: Rate/Rhythm: regular rate and regular rhythm Heart Sounds: no murmur Extremities: + edema Gastrointestinal (Abdomen): Inspection/Auscultation: abdomen normal to inspection, + abdomen distended (Has ventral hernia.) and normal bowel sounds Percussion/Palpation: abdomen soft; abdomen nontender Musculoskeletal: No acute arthritis involving any joint Neurologic: moves all extremities; no focal motor deficits Lymphatic: no cervical or axillary lymphadenopathy Results & Data Results & Data ([facility]) Vital Signs (Past 12 Hours) Vital Signs Temp Pulse Resp BP Pulse Ox 07/08/20 08:33 36.4 C L 50 L 16 127/73 95 Laboratory Results Short CBC 07/08/20 Range/Units 05:56 WBC 15.13 H (4.8-10.8) K/uL Hgb 12.2 L (14.0-18.0) g/dL Hct 40.0 L (42-52) % Plt Count 273 (130-400) K/uL BMP 07/08/20 05:56 Sodium 138 Potassium 4.6 Chloride 104 Carbon Dioxide 29 BUN 12 D Creatinine 1.04 Glucose 261 H Calcium 9.2 Medications Administered Current Inpatient Medications Acetaminophen (Acetaminophen 325 Mg Tab) 650 mg PO Q4H PRN PRN Reason: pain/fever Stop: 08/05/20 03:18 Albuterol (Albuterol Hfa 8 Gm Inhaler) 2 puffs INH Q4 PRN PRN Reason: Dyspnea Stop: 08/05/20 03:18 Albuterol (Albut/Ipratrop 3mg/0.5mg Neb 3 Ml Vial) 3 ml INH Q6H PRN PRN Reason: Shortness Of Breath Or Wheezing Stop: 08/05/20 03:18 Aspirin (Aspirin 81 Mg Ectab) 81 mg PO QAM [facility] Stop: 08/05/20 08:59 Last Admin: 07/08/20 08:20 Dose: 81 mg Documented by: Atorvastatin Calcium (Atorvastatin 40 Mg Tab) 80 mg PO QPM [facility] Stop: 08/05/20 20:59 Last Admin: 07/07/20 21:16 Dose: 80 mg Documented by: Dextrose (Dextrose 50% 50 Ml Syringe) 25 - 50 ml IV UD PRN; Protocol PRN Reason: Hypoglycemia Protocol Stop: 08/05/20 04:29 Docusate Sodium (Docusate Sodium 100 Mg Cap) 100 mg PO BID [facility] Stop: 08/05/20 08:59 Last Admin: 07/08/20 08:20 Dose: 100 mg Documented by: Duloxetine HCl (Duloxetine Hcl 60 Mg Cap) 60 mg PO DAILY [facility] Stop: 08/05/20 08:59 Last Admin: 07/08/20 08:20 Dose: 60 mg Documented by: Famotidine (Famotidine 20 Mg Tab) 20 mg PO DAILY [facility] Stop: 08/05/20 08:59 Last Admin: 07/08/20 08:28 Dose: 20 mg Documented by: Finasteride (Finasteride 5 Mg Tab) 5 mg PO QAM [facility] Stop: 08/05/20 08:59 Last Admin: 07/08/20 08:34 Dose: 5 mg Documented by: Fluticasone Propionate (Fluticasone Propionate Na Spr 16 Gm Btl) 2 sprays NA DAILY [facility] Stop: 08/05/20 08:59 Last Admin: 07/08/20 08:22 Dose: 2 sprays Documented by: Folic Acid (Folic Acid 1 Mg Tab) 1 mg PO QAM [facility] Stop: 08/05/20 08:59 Last Admin: 07/08/20 08:22 Dose: 1 mg Documented by: Furosemide (Furosemide 40 Mg Tab) 40 mg PO BID17 [facility] Stop: 08/05/20 08:59 Last Admin: 07/08/20 08:24 Dose: 40 mg Documented by: Gabapentin (Gabapentin 800 Mg Tab) 800 mg PO TID [facility] Stop: 08/05/20 08:59 Last Admin: 07/08/20 13:44 Dose: 800 mg Documented by: Glucagon (Glucagon For Inj 1 Mg Vial) 1 mg SQ UD PRN; Protocol PRN Reason: Hypoglycemia Protocol Stop: 08/05/20 04:29 Glucose (Glucose 40% Gel 15 Gm Tube) 15 - 30 gm PO UD PRN; Protocol PRN Reason: Hypoglycemia Protocol Stop: 08/05/20 04:29 Glucose (Glucose 10 Tabs/Tube) 4 - 8 tabs PO UD PRN; Protocol PRN Reason: Hypoglycemia Protocol Stop: 08/05/20 04:29 Guaifenesin (Guaifenesin 600 Mg Tabcr) 600 mg PO Q12H PRN PRN Reason: Congestion Stop: 08/05/20 03:18 Last Admin: 07/08/20 08:36 Dose: 600 mg Documented by: Guaifenesin/Dextromethorphan (Guaifenesin/Dextrom Syrup 200mg/20mg 10ml Udc) 10 ml PO Q6H PRN PRN Reason: Cough Stop: 08/06/20 08:22 Last Admin: 07/08/20 09:26 Dose: 10 ml Documented by: Hydroxyzine HCl (Hydroxyzine Hcl 25 Mg Tab) 25 mg PO QID PRN PRN Reason: Anxiety Stop: 08/05/20 03:18 Last Admin: 07/06/20 21:06 Dose: 25 mg Documented by: Methylprednisolone 40 mg/ (Syringe) 0.64 mls @ 1.5 mls/min IV Q8H [facility] Stop: 08/05/20 13:59 Last Admin: 07/08/20 13:44 Dose: 1.5 mls/min Documented by: Furosemide 40 mg/ Syringe 4 mls @ 4 mls/min IV ONE ONE Stop: 07/08/20 15:31 Insulin Aspart (Insulin Aspart 100 Units/Ml 3 Ml Pen) 0 units SC ACHS [facility] Stop: 08/05/20 07:29 Last Admin: 07/08/20 12:55 Dose: 4 units Documented by: Isosorbide Dinitrate (Isosorbide Dinitrate 10 Mg Tab) 30 mg PO QAM [facility] Stop: 08/05/20 08:59 Last Admin: 07/08/20 08:23 Dose: 30 mg Documented by: Lactobacillus Acidoph/Casei/Rhamnos (Advanced Probiotic 1250 Mg Capsule) 2 cap PO BID [facility] Stop: 08/05/20 08:59 Last Admin: 07/08/20 08:34 Dose: 2 cap Documented by: Lorazepam (Lorazepam 0.5 Mg Tab) 0.5 mg PO Q8 PRN PRN Reason: Anxiety Stop: 08/05/20 03:18 Last Admin: 07/08/20 09:25 Dose: 0.5 mg Documented by: Metoprolol Succinate (Metoprolol Succ 50mg Ext Rel Tab) 50 mg PO DAILY [facility] Stop: 08/05/20 08:59 Last Admin: 07/08/20 08:35 Dose: 50 mg Documented by: Miscellaneous (Carbohydrates For Hypoglycemia ) 15 - 30 gm PO UD PRN PRN Reason: Hypoglycemia Treatment Stop: 08/05/20 04:29 Miscellaneous (Remove Nicoderm Patch) 1 ea N/A DAILY@0859 [facility] Stop: 08/06/20 08:58 Last Admin: 07/08/20 08:19 Dose: 1 ea Documented by: Nicotine (Nicotine 21 Mg/24 Hr Tdsy) 21 mg TD QAM [facility] Stop: 08/05/20 21:49 Last Admin: 07/08/20 08:35 Dose: 21 mg Documented by: Nitroglycerin (Nitroglycerin Sl 0.4 Mg/Tab Tab) 0.4 mg SL UD PRN PRN Reason: CHEST PAIN Stop: 08/05/20 03:18 Nystatin (Nystatin Powder 15gm Btl) 1 appln EXT TID PRN PRN Reason: Skin Irritation Stop: 08/05/20 03:18 Ondansetron HCl (Ondansetron Inj 2 Mg/Ml 2 Ml Vial) 4 mg IV Q6H PRN PRN Reason: Nausea Stop: 08/05/20 03:18 Oxycodone HCl (Oxycodone Hcl Ir 5 Mg Tab (Immediate Release)) 10 mg PO Q6H PRN PRN Reason: Pain Stop: 07/21/20 16:24 Last Admin: 07/08/20 11:54 Dose: 10 mg Documented by: Pantoprazole Sodium (Pantoprazole 40 Mg Tab) 40 mg PO DAILYBB [facility] Stop: 08/05/20 06:29 Last Admin: 07/08/20 05:59 Dose: 40 mg Documented by: Polyethylene Glycol (Polyethylene (Miralax) 17 Gm Pack) 17 gm PO DAILY PRN PRN Reason: Constipation Stop: 08/05/20 03:18 Polyethylene Glycol (Polyethylene (Miralax) 17 Gm Pack) 17 gm PO QAM [facility] Stop: 08/05/20 08:59 Last Admin: 07/08/20 08:25 Dose: 17 gm Documented by: Potassium Chloride (Potassium Chloride 20 Meq Tabcr) 20 meq PO BID [facility] Stop: 08/05/20 08:59 Last Admin: 07/08/20 08:24 Dose: 20 meq Documented by: Sennosides (Senna 8.6 Mg Tab) 8.6 mg PO DAILY PRN PRN Reason: Constipation Stop: 08/05/20 03:18 Spironolactone ([facility] 25 Mg Tab) [facility] [place]: 08/05/20 08:59 Last Admin: 07/08/20 08:20 Dose: 25 mg Documented by: Tamsulosin HCl (Tamsulosin Hcl 0.4 Mg Cap) 0.[address] [facility] Stop: 08/05/20 08:59 Last Admin: 07/08/20 08:21 Dose: 0.4 mg Documented by: Umeclidinium [place] (Umeclidinium [place] 62.5mcg/Blister 7 Puffs/Inhaler) [address] [facility] Stop: 08/05/20 08:59 Last Admin: 07/08/20 08:23 Dose: 1 puffs Documented by: (1) Chest pain Chest pain type: unspecified Qualified Code(s): R07.9 - Chest pain, unspecified
[2020-07-08] MEDS ORDERED: FUROSEMIDE 40 MG in SYRINGE 0 ML IV ONE (15:30)
[2020-07-08] MEDS ORDERED: MoRPHine SULFATE 2 MG/ML CARP IV PRN (15:30)
[2020-07-08] MEDS ORDERED: LORazepam 0.5 MG/1 ML VIAL IV PRN (15:30)
[2020-07-08] MEDS: hydrOXYzine HCl 25 MG TAB PO PRN (18:16)
[2020-07-08] MEDS: ATORVASTATIN 40 MG TAB PO SCH (21:22)
[2020-07-09] MEDS: oxyCODONE HCL IR 5 MG TAB (IMMEDIATE RELEASE) PO PRN ×3 (00:16→12:12)
[2020-07-09] MEDS: LORazepam 0.5 MG TAB PO PRN (00:50)
[2020-07-09] MEDS: PANTOprazole 40 MG TAB PO SCH (05:44)
[2020-07-09] MEDS: methylPREDNISolone 40 MG in SYRINGE 0 ML IV SCH ×2 (05:44→14:04)
[2020-07-09 05:59] LABS: INR 2.1 (0.9-1.1); Prothrombin Time 20.9 Seconds (9.0-12.0)
[2020-07-09 06:24] LABS: BUN Creatinine Ratio 16.6 (10-20); Calcium 8.8 mg/dl (8.5-10.1); Creatinine Clr Calc Pharmacy 159.1 ml/min; Est GFR (African American) 99.6; Est GFR (Non-African American) 85.9; Potassium 4.5 mmol/L (3.5-5.1)
[2020-07-09] MEDS ORDERED: INSULIN ASPART 100 UNITS/ML 3 ML PEN SC STA (06:32)
[2020-07-09 06:44] LABS: Beta-Hydroxybutyrate 0.76 mg/dl (0.2-2.81)
[2020-07-09] MEDS ORDERED: INSULIN GLARGINE SOLOSTAR 100 UNITS/ML 3 ML PEN SC SCH (06:45)
[2020-07-09] MEDS: DOCUSATE SODIUM 100 MG CAP PO SCH (07:23)
[2020-07-09] MEDS: ISOSORBIDE DINITRATE 10 MG TAB PO SCH (07:24)
[2020-07-09] MEDS: SPIRONOLACTONE 25 MG TAB PO SCH (07:24)
[2020-07-09] MEDS: POTASSIUM CHLORIDE 20 MEQ TABCR PO SCH (07:24)
[2020-07-09] MEDS: METOPROLOL SUCC 50MG EXT REL TAB PO SCH (07:25)
[2020-07-09] MEDS: ADVANCED PROBIOTIC 1250 MG CAPSULE PO SCH (07:25)
[2020-07-09] MEDS: TAMSULOSIN HCL 0.4 MG CAP PO SCH (07:25)
[2020-07-09] MEDS: ASPIRIN 81 MG ECTAB PO SCH (07:25)
[2020-07-09] MEDS: DULoxetine HCL 60 MG CAP PO SCH (07:25)
[2020-07-09] MEDS: FOLIC ACID 1 MG TAB PO SCH (07:25)
[2020-07-09] MEDS: FLUTICASONE PROPIONATE NA SPR 16 GM BTL SCH (07:26)
[2020-07-09] MEDS: FINASTERIDE 5 MG TAB PO SCH (07:26)
[2020-07-09] MEDS: GABAPENTIN 800 MG TAB PO SCH ×2 (07:26→14:05)
[2020-07-09] MEDS: FUROSEMIDE 40 MG TAB PO SCH (07:26)
[2020-07-09] MEDS: UMECLIDINIUM BROMIDE 62.5MCG/BLISTER 7 PUFFS/INHALER INH SCH (07:27)
[2020-07-09] MEDS: NICOTINE 21 MG/24 HR TDSY TD SCH (07:30)
[2020-07-09] MEDS: POLYETHYLENE (MIRALAX) 17 GM PACK PO SCH (07:33)
[2020-07-09] MEDS: INSULIN ASPART 100 UNITS/ML 3 ML PEN SC SCH ×2 (09:15→13:43)
[2020-07-09] MEDS: FAMOTIDINE 20 MG TAB PO SCH (09:19)
--- NOTE | 2020-07-09 12:26 | Hospitalist Progress Note ---
Date of Service July 09, 2020 Assessment & Plan (1) Chest pain: Admitted with chest pain with history of recurrent chest pain Cardiac troponins and EKG are unremarkable Doubt any ACS Did not have any more chest pain (2) Lumbar radiculopathy: Has history of chronic back pain with radiculopathy Complains to have more pain for the last few days Has an appointment with pain therapist as an outpatient on Wednesday We will try small dose of Dilaudid every 6 hourly as needed for pain He will not be given any continued pain medications on discharge His pain is controlled with oxycodone 10 mg every 6 hourly as needed Was strongly advised to keep appointment with outpatient pain therapist He will keep the appointment with the pain therapist today (3) Possible urinary tract infection: Catheter associated UTI UA suggestive of infection and has been getting Zosyn Await culture and sensitivity-urine culture is showing pinpoint growth Will await for full culture and sensitivity-culture has been negative Will discontinue antibiotic (4) Supratherapeutic INR: History of pulmonary embolism and on Coumadin INR is more than 9 on admission and received vitamin K We will monitor INR-INR went up to 8.9 as on 07/07/2020 Will give 5 mg vitamin K intravenously NR is 2.1 as on07/09/20 (5) COPD exacerbation: Has increasing wheezing Likely has mild exacerbation of COPD Will start a small dose of intravenous Solu-Medrol Continue with bronchodilators Prednisone for next 3 days Has history of diastolic heart failure Chest x-ray showed cardiomegaly with possible congestive changes Will give additional 40 mg Lasix intravenously Be discharged tomorrow (6) DM type 2 (diabetes mellitus, type 2): SSI Other significant medical conditions remain stable We will continue most of his outpatient medications Discharge home today Advised to keep appointment with the pain therapist Admission and Anticipated Discharge Date Admission Date: July 06, 2020 Subjective 07/06/2020 The patient was seen and examined in medical floor He was admitted early this morning with multitude of symptoms including Acute on chronic pain, chest pain noted to have increased and INR He has been complaining of more pain involving back, foot and hips He also has increasing wheezing 07/07/2020 The patient was seen and examined in medical floor in presence of the nurse Complains of cough and seen trial abdominal swelling Denies any other symptoms Pain seems to be reasonably controlled 07/08/2020 The patient was seen and examined in medical floor He complains to have congestion in the chest with audible wheezing and also minor rash involving the left hand and adjoining area Denies any fever and/or chills His pain seems to be under control 07/09/2020 The patient was seen and examined in medical floor He has been feeling a lot better and denies any significant symptoms The pain seems to be under control Review of Systems Review of Systems: Systems reviewed And are unremarkable except as noted below Respiratory: + dyspnea on exertion and + wheezing Musculoskeletal: + back pain (Back pain with radiation to the legs) and + joint pain ( Right foot pain) Physical Exam Physical Exam: Lying in bed with acute distress due to increasing pain Constitutional: well developed, well nourished, + acute distress ( right foot painDue to back pain with radiculopathy and right foot pain) and + morbidly obese Eyes: PERRL, conjunctivae normal, anicteric sclerae ENMT: external ear and nose normal, oropharynx normal Neck: trachea midline, no thyromegaly Respiratory: normal respiratory effort; no respiratory distress Auscultation: + crackles (Very minimal bibasilar crackles) and + wheezes (Wheezing has improved); no rhonchi (Transmitted sounds from tracheal secretions) Cardiovascular: Rate/Rhythm: regular rate and regular rhythm Heart Sounds: no murmur Extremities: + edema Gastrointestinal (Abdomen): Inspection/Auscultation: abdomen normal to inspection, + abdomen distended (Has ventral hernia.) and normal bowel sounds Percussion/Palpation: abdomen soft; abdomen nontender Musculoskeletal: Ongoing back pain and right foot pain Neurologic: moves all extremities; no focal motor deficits Lymphatic: no cervical or axillary lymphadenopathy Results & Data Results & Data ([facility]) Vital Signs (Past 12 Hours) Vital Signs Temp Pulse Resp BP Pulse Ox 07/09/20 08:30 36.5 C 71 18 120/66 92 07/09/20 00:32 60 20 96 Laboratory Results BMP 07/09/20 05:36 Sodium 135 L Potassium 4.5 Chloride 103 Carbon Dioxide 29 BUN 17 Creatinine 1.02 Glucose 324 H* Calcium 8.8 Medications Administered Current Inpatient Medications Acetaminophen (Acetaminophen 325 Mg Tab) 650 mg PO Q4H PRN PRN Reason: pain/fever Stop: 08/05/20 03:18 Albuterol (Albuterol Hfa 8 Gm Inhaler) 2 puffs INH Q4 PRN PRN Reason: Dyspnea Stop: 08/05/20 03:18 Albuterol (Albut/Ipratrop 3mg/0.5mg Neb 3 Ml Vial) 3 ml INH Q6H PRN PRN Reason: Shortness Of Breath Or Wheezing Stop: 08/05/20 03:18 Last Admin: 07/09/20 00:30 Dose: 3 ml Documented by: Aspirin (Aspirin 81 Mg Ectab) 81 mg PO QAM [facility] Stop: 08/05/20 08:59 Last Admin: 07/09/20 07:25 Dose: 81 mg Documented by: Atorvastatin Calcium (Atorvastatin 40 Mg Tab) 80 mg PO QPM [facility] Stop: 08/05/20 20:59 Last Admin: 07/08/20 21:22 Dose: 80 mg Documented by: Dextrose (Dextrose 50% 50 Ml Syringe) 25 - 50 ml IV UD PRN; Protocol PRN Reason: Hypoglycemia Protocol Stop: 08/05/20 04:29 Docusate Sodium (Docusate Sodium 100 Mg Cap) 100 mg PO BID [facility] Stop: 08/05/20 08:59 Last Admin: 07/09/20 07:23 Dose: Not Given Documented by: Duloxetine HCl (Duloxetine Hcl 60 Mg Cap) 60 mg PO DAILY [facility] Stop: 08/05/20 08:59 Last Admin: 07/09/20 07:25 Dose: 60 mg Documented by: Famotidine (Famotidine 20 Mg Tab) 20 mg PO DAILY [facility] Stop: 08/05/20 08:59 Last Admin: 07/09/20 09:19 Dose: 20 mg Documented by: Finasteride (Finasteride 5 Mg Tab) 5 mg PO QAM [facility] Stop: 08/05/20 08:59 Last Admin: 07/09/20 07:26 Dose: 5 mg Documented by: Fluticasone Propionate (Fluticasone Propionate Na Spr 16 Gm Btl) 2 sprays NA DAILY [facility] Stop: 08/05/20 08:59 Last Admin: 07/09/20 07:26 Dose: 2 sprays Documented by: Folic Acid (Folic Acid 1 Mg Tab) 1 mg PO QAM [facility] Stop: 08/05/20 08:59 Last Admin: 07/09/20 07:25 Dose: 1 mg Documented by: Furosemide (Furosemide 40 Mg Tab) 40 mg PO BID17 [facility] Stop: 08/05/20 08:59 Last Admin: 07/09/20 07:26 Dose: 40 mg Documented by: Gabapentin (Gabapentin 800 Mg Tab) 800 mg PO TID [facility] Stop: 08/05/20 08:59 Last Admin: 07/09/20 07:26 Dose: 800 mg Documented by: Glucagon (Glucagon For Inj 1 Mg Vial) 1 mg SQ UD PRN; Protocol PRN Reason: Hypoglycemia Protocol Stop: 08/05/20 04:29 Glucose (Glucose 40% Gel 15 Gm Tube) 15 - 30 gm PO UD PRN; Protocol PRN Reason: Hypoglycemia Protocol Stop: 08/05/20 04:29 Glucose (Glucose 10 Tabs/Tube) 4 - 8 tabs PO UD PRN; Protocol PRN Reason: Hypoglycemia Protocol Stop: 08/05/20 04:29 Guaifenesin (Guaifenesin 600 Mg Tabcr) 600 mg PO Q12H PRN PRN Reason: Congestion Stop: 08/05/20 03:18 Last Admin: 07/08/20 08:36 Dose: 600 mg Documented by: Guaifenesin/Dextromethorphan (Guaifenesin/Dextrom Syrup 200mg/20mg 10ml Udc) 10 ml PO Q6H PRN PRN Reason: Cough Stop: 08/06/20 08:22 Last Admin: 07/08/20 09:26 Dose: 10 ml Documented by: Hydroxyzine HCl (Hydroxyzine Hcl 25 Mg Tab) 25 mg PO QID PRN PRN Reason: Anxiety Stop: 08/05/20 03:18 Last Admin: 07/08/20 18:16 Dose: 25 mg Documented by: Methylprednisolone 40 mg/ (Syringe) 0.64 mls @ 1.5 mls/min IV Q8H [facility] Stop: 08/05/20 13:59 Last Admin: 07/09/20 05:44 Dose: 1.5 mls/min Documented by: Insulin Aspart (Insulin Aspart 100 Units/Ml 3 Ml Pen) 0 units SC ACHS [facility] Stop: 08/05/20 07:29 Last Admin: 07/09/20 09:15 Dose: 19 units Documented by: Insulin Glargine (Insulin Glargine Solostar 100 Units/Ml 3 Ml Pen) 7 units SC BID [facility] Stop: 08/08/20 06:44 Last Admin: 07/09/20 07:14 Dose: 7 units Documented by: Isosorbide Dinitrate (Isosorbide Dinitrate 10 Mg Tab) [address] [facility] Stop: 08/05/20 08:59 Last Admin: 07/09/20 07:24 Dose: 30 mg Documented by: Lactobacillus Acidoph/Casei/Rhamnos (Advanced Probiotic 1250 Mg Capsule) [address] [facility] Stop: 08/05/20 08:59 Last Admin: 07/09/20 07:25 Dose: 2 cap Documented by: Lorazepam (Lorazepam 0.5 Mg Tab) 0.5 mg PO Q8 PRN PRN Reason: Anxiety Stop: 08/05/20 03:18 Last Admin: 07/09/20 00:50 Dose: 0.5 mg Documented by: Metoprolol Succinate (Metoprolol Succ 50mg Ext Rel Tab) [address] [facility] Stop: 08/05/20 08:59 Last Admin: 07/09/20 07:25 Dose: 50 mg Documented by: Miscellaneous (Carbohydrates For Hypoglycemia ) 15 - 30 gm PO UD PRN PRN Reason: Hypoglycemia Treatment Stop: 08/05/20 04:29 Miscellaneous (Remove Nicoderm Patch) 1 ea N/A DAILY@0859 [facility] Stop: 08/06/20 08:58 Last Admin: 07/09/20 07:31 Dose: 1 ea Documented by: Nicotine (Nicotine 21 Mg/24 Hr Tdsy) [address] [facility] Stop: 08/05/20 21:49 Last Admin: 07/09/20 07:30 Dose: 21 mg Documented by: Nitroglycerin (Nitroglycerin Sl 0.4 Mg/Tab Tab) 0.4 mg SL UD PRN PRN Reason: CHEST PAIN Stop: 08/05/20 03:18 Nystatin (Nystatin Powder 15gm Btl) 1 appln EXT TID PRN PRN Reason: Skin Irritation Stop: 08/05/20 03:18 Ondansetron HCl (Ondansetron Inj 2 Mg/Ml 2 Ml Vial) 4 mg IV Q6H PRN PRN Reason: Nausea Stop: 08/05/20 03:18 Oxycodone HCl (Oxycodone Hcl Ir 5 Mg Tab (Immediate Release)) 10 mg PO Q6H PRN PRN Reason: Pain Stop: 07/21/20 16:24 Last Admin: 07/09/20 12:12 Dose: 10 mg Documented by: Pantoprazole Sodium (Pantoprazole 40 Mg Tab) [address] [facility] Stop: 08/05/20 06:29 Last Admin: 07/09/20 05:44 Dose: 40 mg Documented by: Polyethylene Glycol (Polyethylene (Miralax) 17 Gm Pack) 17 gm PO DAILY PRN PRN Reason: Constipation Stop: 08/05/20 03:18 Polyethylene Glycol (Polyethylene (Miralax) 17 Gm Pack) [address] [facility] Stop: 08/05/20 08:59 Last Admin: 07/09/20 07:33 Dose: 17 gm Documented by: Potassium Chloride (Potassium Chloride 20 Meq Tabcr) [address] [facility] Stop: 08/05/20 08:59 Last Admin: 07/09/20 07:24 Dose: 20 meq Documented by: Sennosides (Senna 8.6 Mg Tab) 8.6 mg PO DAILY PRN PRN Reason: Constipation Stop: 08/05/20 03:18 Spironolactone (Spironolactone 25 Mg Tab) [address] [facility] Stop: 08/05/20 08:59 Last Admin: 07/09/20 07:24 Dose: 25 mg Documented by: Tamsulosin HCl (Tamsulosin Hcl 0.4 Mg Cap) 0.[address] [facility] Stop: 08/05/20 08:59 Last Admin: 07/09/20 07:25 Dose: 0.4 mg Documented by: Umeclidinium [place] (Umeclidinium [place] 62.5mcg/Blister 7 Puffs/Inhaler) [facility] [place] Stop: 08/05/20 08:59 Last Admin: 07/09/20 07:27 Dose: 1 puffs Documented by: (1) Chest pain Chest pain type: unspecified Qualified Code(s): R07.9 - Chest pain, unspecified
[2020-07-09] MEDS ORDERED: HYDROmorphone INJ 2 MG/ML SYR/VIAL IV STA (12:39)
--- NOTE | 2020-07-09 18:33 | Discharge Summary ---
Date of Service July 09, 2020 Admission HPI Per Admitting Provider DICTATED BY: Everardo Ibarra MD DATE OF ADMISSION: 07/06/2020 CHIEF COMPLAINT: Chronic pain, chest pain and elevated INR. HISTORY OF PRESENT ILLNESS: This is a 49-year-old male with past medical history significant for right-sided heart failure, history of PE, on Coumadin, hypertension, COPD, chronic pain with opiate dependence, mood disorder, tobacco abuse, history of ESBL, history of sepsis secondary to urinary tract infection, chronic Lloyd, anemia, morbid obesity, noncompliant with medication and frequent hospitalizations. The patient also had a traumatic subdural hematoma and subarachnoid hematoma in setting of Coumadin use and was admitted to [facility] from 11/18/2019-12/04/2019. Currently, he was restarted on Coumadin. He has chronic indwelling Lloyd catheter, history of infection with enterococcus, multiple UTIs, patient's last admission was on 05/30/2020 and discharged on 06/01/2020. At that time, he was admitted with chest pain which is his chronic complaint and also elevated INR and some rectal bleed and UTI. He was seen by pain management for chronic pain and no pain medication was offered at that time and the patient signed out AMA. He was seen in the ER on 06/25/2020, complains of chest pain and flu-like symptoms and low-grade fevers because of his multiple similar complaints was discharged home, again comes back, complaining of chest pain, elevated INR. The patient received a dose of morphine, currently somewhat sleepy ,initially somewhat fumbling the words but later he was back to his usual self, complaints of chest pain, headache, abdominal pain. He also complains of shortness of breath on exertion, somewhat constipated. Says he has some low-grade fevers. Complains of sore throat, no earache, no runny nose, no cough. Currently, no nausea. His Lloyd catheter was changed yesterday, chronic swelling in the lower extremities. He is hemodynamically stable. Leukocytosis of 15. UA is positive again, but could be colonization. His INR was greater than 9.7. Requesting, crying, asking for pain medication. Admission Exam Per Admitting Provider GENERAL: The patient is morbidly obese, currently not in acute distress. VITAL SIGNS: Temperature 36.9, pulse 103, respiratory rate 18, blood pressure 124/77, oxygen 98% on room air. HEENT: Pupils equal, round, reactive to light. NECK: No JVD, no neck masses. CARDIOVASCULAR: S1, S2 heard, regular rate and rhythm, no murmur, no gallop. RESPIRATORY SYSTEM: Normal AP diameter. No accessory muscle use. No wheezing, no crackles. ABDOMEN: Soft, bowel sounds present, nontender. No distention. CENTRAL NERVOUS SYSTEM: Cranial nerves II-XII grossly intact, nonfocal. EXTREMITIES: Bilateral lower extremity +2 edema present, no erythema seen. Principal Diagnosis Chest pain-No ACS, supratherapeutic INR, chronic back pain, COPD exacerbation, controlled diastolic heart failure Discharge Exam Constitutional well developed, well nourished, + acute distress ( right foot painDue to back pain with radiculopathy and right foot pain) and + morbidly obese Eyes PERRL, conjunctivae normal, anicteric sclerae ENMT external ear and nose normal, oropharynx normal Neck trachea midline, no thyromegaly Respiratory normal respiratory effort; no respiratory distress Auscultation: + crackles (Very minimal bibasilar crackles) and + wheezes (Wheezing has improved); no rhonchi (Transmitted sounds from tracheal secretions) Cardiovascular Rate/Rhythm: regular rate and regular rhythm Heart Sounds: no murmur Extremities: + edema Gastrointestinal (Abdomen) Inspection/Auscultation: abdomen normal to inspection, + abdomen distended (Has ventral hernia.) and normal bowel sounds Percussion/Palpation: abdomen soft; abdomen nontender Neurologic moves all extremities; no focal motor deficits Lymphatic no cervical or axillary lymphadenopathy Discharge Data Allergies Allergy/AdvReac Type Severity Reaction Status Date / Time fentanyl Allergy Intermediate RASH/HIVES/SKIN Verified 07/05/20 23:57 REDNESS naloxone AdvReac Severe extremely Verified 07/05/20 23:57 sick acetaminophen AdvReac Intermediate Unknown Verified 07/05/20 23:57 ibuprofen AdvReac Intermediate Nausea Verified 07/05/20 23:57 valproic acid AdvReac Intermediate PANCREATITS Verified 07/05/20 23:57 Consultations 07/05/20 23:04 ED Decision to Admit Stat 07/06/20 03:19 Consult Case Management - Discharge Planning Routine Ordered Studies 07/05/20 21:08 CT cervical spine wo con Stat CT head/brain wo con Stat 07/05/20 21:10 CT abd pelvis wo con Stat Hospital Course (1) Chest pain: Admitted with chest pain with history of recurrent chest pain Cardiac troponins and EKG are unremarkable Doubt any ACS Did not have any more chest pain (2) Lumbar radiculopathy: Has history of chronic back pain with radiculopathy Complains to have more pain for the last few days Has an appointment with pain therapist as an outpatient on Wednesday We will try small dose of Dilaudid every 6 hourly as needed for pain He will not be given any continued pain medications on discharge His pain is controlled with oxycodone 10 mg every 6 hourly as needed Was strongly advised to keep appointment with outpatient pain therapist He will keep the appointment with the pain therapist today (3) Possible urinary tract infection: Catheter associated UTI UA suggestive of infection and has been getting Zosyn Await culture and sensitivity-urine culture is showing pinpoint growth Will await for full culture and sensitivity-culture has been negative Will discontinue antibiotic (4) Supratherapeutic INR: History of pulmonary embolism and on Coumadin INR is more than 9 on admission and received vitamin K We will monitor INR-INR went up to 8.9 as on 07/07/2020 Will give 5 mg vitamin K intravenously NR is 2.1 as on07/09/20 (5) COPD exacerbation: Has increasing wheezing Likely has mild exacerbation of COPD Will start a small dose of intravenous Solu-Medrol Continue with bronchodilators Prednisone for next 3 days Has history of diastolic heart failure Chest x-ray showed cardiomegaly with possible congestive changes Will give additional 40 mg Lasix intravenously Be discharged tomorrow (6) DM type 2 (diabetes mellitus, type 2): SSI Other significant medical conditions remain stable We will continue most of his outpatient medications Discharge home today Advised to keep appointment with the pain therapist Total Time Total Time Spent Total Time Spent (In Minutes): 35 minutes Total Time Includes: Examination of the Patient, Discharge Planning, Medication Reconciliation and Communication With Other Providers Discharge Plan Discharge Items Patient Disposition: Home - Home Health Services Reason For Visit: CHEST PAIN, CHRONIC PAIN Discharge Diagnosis: Chest pain-No ACS, supratherapeutic INR, chronic back pain, COPD exacerbation, controlled diastolic heart failure Condition on Discharge: Fair Activity: Resume your previous activity Non-emergency contact: Primary Care Provider Call non-emergency contact if: you have any medication questions and your symptoms worsen Follow-up/Referrals: Roberto Askew MD [Primary Care Provider] - 07/17/20 12:00 pm (Date & Time 07/17/2020 12:00 PM Provider Roberto Askew MD Department General Internal [facility] ) Diet: Carb Consistent or DM2 and Heart Healthy Fluids: 1800ml (7 cups) Addtl Attending Provider Instructions: Please take precaution to avoid falls Keep regular appointment with coagulation clinic Strongly advised to keep appointment with the pain therapist Pending Studies at Discharge: No Stand-Alone Forms: My [facility] [place] [employer], Smoking Cessation Medications and DC Order Prescriptions: New nicotine [Nicoderm CQ] 21 mg/24 hr Patch 24 Hour 21 mg transdermal QAM 30 Days Qty: 30 RF: 0 prednisone 20 mg tablet 20 mg PO BID 5 Days Qty: 10 RF: 0 Continued polyethylene glycol 3350 [Miralax] 17 gram powder in packet 17 g PO QAM RF: 0 nitroglycerin [Nitrostat] 0.4 mg tablet, sublingual 0.4 mg Sublingual DIRECTED PRN (Reason: CHEST PAIN) RF: 0 nystatin 100,000 unit/gram Powder 1 applic TOPICAL TID PRN (Reason: Skin Irritation) RF: 0 cyclobenzaprine 10 mg Tablet 10 mg PO BID PRN (Reason: Muscle Spasm) RF: 0 ipratropium-albuterol 0.5 mg-3 mg(2.5 mg base)/3 mL Solution For Nebulization 3 ml INHALATION Q6H PRN (Reason: Shortness Of Breath Or Wheezing) RF: 0 docusate sodium 100 mg Capsule 100 mg PO BID RF: 0 Lactinex 1 million cell Tablet,Chewable 1 tab PO BID RF: 0 duloxetine 60 mg capsule,delayed release(DR/EC) 60 mg PO DAILY RF: 0 famotidine 20 mg tablet 20 mg PO DAILY RF: 0 warfarin 2.5 mg Tablet 2.5 mg PO DAILY RF: 0 methenamine hippurate 1 gram tablet 1 g PO DAILY RF: 0 oxycodone 10 mg Tablet 10 mg PO Q4 PRN (Reason: Pain) RF: 0 hydroxyzine HCl 25 mg tablet 25 mg PO QID PRN (Reason: Anxiety) RF: 0 fluticasone propionate 50 mcg/actuation spray,suspension 2 spray Intranasal DAILY RF: 0 aspirin [Ecotrin Low Strength] 81 mg tablet,delayed release (DR/EC) 81 mg PO QAM RF: 0 Spiriva with HandiHaler 18 mcg capsule, w/inhalation device 1 puff inhalation QAM RF: 0 finasteride 5 mg tablet 5 mg PO QAM RF: 0 tamsulosin [Flomax] 0.4 mg Capsule 0.4 mg PO QAM RF: 0 metoprolol succinate 50 mg Tablet Extended Release 24 Hr 50 mg PO DAILY RF: 0 spironolactone 25 mg Tablet 25 mg PO QAM RF: 0 glipizide 5 mg tablet 5 mg PO BID Qty: 60 RF: 1 atorvastatin 80 mg tablet 80 mg PO QPM RF: 0 sennosides [senna] 8.6 mg Tablet 8.6 mg PO DAILY PRN (Reason: Constipation) RF: 0 folic acid 1 mg Tablet 1 mg PO QAM RF: 0 furosemide [Lasix] 40 mg tablet 40 mg PO BID RF: 0 lorazepam 0.5 mg tablet 0.5 mg PO Q8 PRN (Reason: Anxiety) RF: 0 potassium chloride 20 mEq Tablet Extended Release 20 meq PO BID RF: 0 albuterol sulfate 90 mcg/actuation Hfa Aerosol Inhaler 2 puff INHALATION Q4 PRN (Reason: Dyspnea) RF: 0 ondansetron HCl [Zofran] 4 mg Tablet 4 mg PO Q8 PRN (Reason: Nausea And Vomiting) RF: 0 omeprazole 20 mg Capsule,Delayed Release(Dr/Ec) 20 mg PO DAILYBB RF: 0 guaifenesin [Mucinex] 600 mg Tablet Extended Release 12hr 600 mg PO Q12H PRN (Reason: Congestion) RF: 0 isosorbide dinitrate 30 mg Tablet 30 mg PO QAM RF: 0 gabapentin 800 mg tablet 800 mg PO TID RF: 0 Discharge Orders: Discharge Order (Routine); Ordered 07/09/20 Ordered By: Augustus Pickering/Other Patient Handouts: High Blood Sugar (Hyperglycemia), Hypoglycemia (Low Blood Sugar), Managing Type 2 Diabetes, Diabetes: Meal Planning Admission Data Admit Date/Time: 07/06/20 02:20 Attending Provider: Augustus Vasquez Admit Provider: Everardo Ibarra Primary Care Provider: Roberto Askew Other Providers: Everardo Ibarra ; [facility] Other Interventions: Discharge Summary Assessment (RN) Last Done: 07/09/20 13:50
== END 2020-07-09 14:25 | disposition home health service (06) | DRG 699 ==
LOC: ED 20:43 → 3E 07-06 02:20

== ENCOUNTER 2020-10-31 16:47 | Observation (INO) ==
[2020-10-31] MEDS ORDERED: oxyCODONE HCL IR 5 MG TAB (IMMEDIATE RELEASE) PO STA ×2 (17:41→19:32)
[2020-10-31] MEDS ORDERED: FUROSEMIDE 40 MG/4 ML VIAL IV STA (17:41)
[2020-10-31] MEDS ORDERED: ONDANSETRON INJ 2 MG/ML 2 ML VIAL IV STA (17:41)
--- NOTE | 2020-10-31 17:44 | Emergency Department Note ---
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 vomiting, unspecified
[2020-10-31 18:10] LABS: Basophils # (auto) 0.04 K/uL (0-0.2); Basophils % (auto) 0.3 %; Eosinophils # (auto) 0.43 K/uL (0-0.5); Eosinophils % (auto) 3.4 %; Hematocrit (blood only) 46.3 % (42-52); Hemoglobin 15.1 g/dL (14.0-18.0); Immature Granulocytes # (auto) 0.04 K/uL (0.00-0.02); Immature Granulocytes % (auto) 0.3 %; Lymphocytes # (auto) 2.87 K/uL (1.2-3.4); Lymphocytes % (auto) 22.4 %; Mean Corpuscular Hemoglobin 25.9 pg (25-34); Mean Corpuscular Hgb Conc 32.6 g/dL (32-36); Mean Corpuscular Volume 79.4 fL (80-100); Mean Platelet Volume 10.2 fL (7.4-10.4); Monocytes # (auto) 0.82 K/uL (0.11-0.59); Monocytes % (auto) 6.4 %; Neutrophils # (auto) 8.61 K/uL (1.4-6.5); Neutrophils % (auto) 67.2 %; Platelet Count 245 K/uL (130-400); RDW Coefficient of Variation 18.9 % (11.5-14.5); RDW Standard Deviation 54.3 fL (36.4-46.3); Red Blood Count 5.83 M/uL (4.7-6.1); White Blood Count 12.81 K/uL (4.8-10.8)
[2020-10-31 18:28] LABS: Alanine Aminotransferase 31 U/L (12-78); Aspartate Aminotransferase 17 U/L (15-37); BUN Creatinine Ratio 5.4 (10-20); Blood Urea Nitrogen 5 mg/dl (7-18); Calcium 9.2 mg/dl (8.5-10.1); Carbon Dioxide 28 mmol/L (21-32); Chloride 104 mmol/L (98-107); Creatinine Clr Calc Pharmacy 165.1 ml/min; Est GFR (African American) 109.1; Est GFR (Non-African American) 94.2; Glucose 175 mg/dl (70-99); Lipase 55 U/L (73-393); Potassium 4.3 mmol/L (3.5-5.1); Sodium 137 mmol/L (136-145)
[2020-10-31 18:33] LABS: Albumin Globulin Ratio 0.7 (0.9-2); Alkaline Phosphatase 163 U/L (45-117); Bilirubin,Total 0.6 mg/dl (0.2-1); Globulin 4.2 gm/dl (2.5-4.0); NT Pro B Type Natriuretic Pept 21 pg/ml (0-900); Total Protein 7.2 gm/dl (6.4-8.2); Troponin I < 0.015 ng/ml (0-0.045)
[2020-10-31 18:46] LABS: Influenza A virus by PCR Negative (Neg); Influenza B virus by PCR Negative (Neg); RSV by PCR Negative (Neg); SARS CoV2 RNA(COVID-19) InHosp NEGATIVE (Negative)
[2020-10-31 19:40] LABS: INR 1.3 (0.9-1.1); Partial Thromboplastin Ratio 1.1; Partial Thromboplastin Time 29.8 Seconds (21.0-31.0); Prothrombin Time 12.6 Seconds (9.0-12.0)
[2020-10-31 20:45] LABS: Appearance Urine Clear (Clear); Bacteria Urine Automated Negative (Negative); Bilirubin Urine Negative (Negative); Blood Urine Trace (Negative); Color Urine Yellow; Glucose Urine UA Negative (Negative); Ketones Urine Negative (Negative); Leukocyte Esterase Urine Negative (Negative); Nitrite Urine Negative (Negative); Protein Urine Negative (Negative); RBC Urine Automated 0-4 /hpf (0-4); Specific Gravity Urine 1.009 (1.000-1.030); Urobilinogen Urine Negative (Negative); pH Urine 5.5 (4.5-7.5)
[2020-10-31] MEDS ORDERED: MoRPHine SULFATE 4 MG/ML 1 ML CARP\\VIAL IV STA (20:59)
[2020-10-31] MEDS ORDERED: OPTIRAY 320 125ml IV ONE (21:18)
--- NOTE | 2020-10-31 21:29 | XRay Report ---
PA CHEST WITH ABDOMINAL SERIES CLINICAL HISTORY: Vomiting. Atypical chest pain. Generalized abdominal pain. FINDINGS: 2 PA chest radiographs are compared to study dated 08/27/2020. The heart is top normal for projection. Chronic interstitial thickening is similar to previous. There is bibasilar scarring/atelectasis. No airspace consolidation or large pleural effusion is identified. No pneumothorax is seen. The bony tho rax is grossly intact. Supine and erect abdominal radiographs are correlated with abdominal CT dated 08/27/2020. There is a n onobstructed abdominal bowel gas pattern. No evidence of intraperitoneal free air is seen. Moderate f ecal retention is noted in the colon. The liver is enlarged. There are no abnormal abdominal calcific ations. Phlebolith are noted in the pelvis. The lumbosacral spine and bony pelvis appear intact. IMPRESSION: 1. No active disease in the chest. 2. Nonobstructed abdominal bowel gas pattern. ACT 112: Negative or not required by law. Electronically signed by: Misael Lopez M.D. 10/31/2020 9:27 PM
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
[2020-11-01] MEDS ORDERED: Heparin IV Adult Wt-Based Standard *NO* Bolus Protocol IV STA
[2020-11-01 00:08] LABS: Magnesium 1.9 mg/dl (1.8-2.4)
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
[2020-11-01] MEDS: ALBUMIN 25% 12.5 GM/50 ML VIAL IV SCH ×2 (00:36→00:47)
[2020-11-01] MEDS: HEPARIN SODIUM/DEXTROSE 25,000 UNITS/500 ML BAG IV SCH ×2 (01:20→11:58)
[2020-11-01] MEDS ORDERED: SENNA 8.6 MG TAB PO PRN (01:59)
[2020-11-01] MEDS ORDERED: ACETAMINOPHEN 325 MG TAB PO PRN (01:59)
[2020-11-01] MEDS ORDERED: CARBOHYDRATES FOR HYPOGLYCEMIA PO PRN (01:59)
[2020-11-01] MEDS ORDERED: XOPENEX/ATROVENT 1.25mg/0.5MG NEB COMBO NEB PRN (01:59)
[2020-11-01] MEDS ORDERED: IPRATROPIUM BROMIDE NEB SOLN 0.02% 2.5 ML VIAL INH PRN (01:59)
[2020-11-01] MEDS ORDERED: PROMETHAZINE HCL 12.5 MG in SODIUM CHLORIDE 0.9% 50 ML IV PRN (01:59)
[2020-11-01] MEDS ORDERED: DEXTROSE 50% 50 ML SYRINGE IV PRN (01:59)
[2020-11-01] MEDS ORDERED: LEVALBUTEROL 1.25MG/0.5ML NEB INH PRN (01:59)
[2020-11-01] MEDS ORDERED: GLUCOSE 40% GEL 15 GM TUBE PO PRN (01:59)
[2020-11-01] MEDS ORDERED: GLUCOSE 10 TABS/TUBE PO PRN (01:59)
[2020-11-01] MEDS ORDERED: GLUCAGON FOR INJ 1 MG VIAL SQ PRN (01:59)
[2020-11-01] MEDS: GABAPENTIN 800 MG TAB PO SCH ×3 (02:45→14:03)
[2020-11-01] MEDS ORDERED: INSULIN GLARGINE SOLOSTAR 100 UNITS/ML 3 ML PEN SC ONE (02:45)
[2020-11-01] MEDS: buprenorphine HCL 8 MG SUBL SL SCH ×3 (02:45→14:04)
[2020-11-01] MEDS: INSULIN ASPART 100 UNITS/ML 3 ML PEN SC SCH ×4 (02:46→16:53)
[2020-11-01] MEDS: LORazepam 0.5 MG TAB PO PRN ×2 (02:47→10:14)
[2020-11-01] MEDS: CYCLOBENZAPRINE HCL 10 MG TAB PO PRN ×2 (02:55→14:03)
[2020-11-01] MEDS ORDERED: METOPROLOL TARTRATE 1 MG/ML VIAL IV STA (03:21)
[2020-11-01] MEDS ORDERED: PANTOprazole 40 MG TAB PO SCH (06:30)
--- NOTE | 2020-11-01 07:16 | Ultrasound Report ---
US abdomen ltd ascites CLINICAL HISTORY: Abdominal distention. Evaluate for ascites. COMPARISON STUDY: CT of the abdomen and pelvis August 27, 2020. TECHNIQUE: Sonography of the abdomen and pelvis was performed to assess for ascites. FINDINGS: No ascites was identified within the abdomen or pelvis. Exam is compromised by suboptimal p enetration. IMPRESSION: No ascites. ACT 112: Negative or not required by law. Electronically signed by: Evelio Corbin M.D. 11/01/2020 7:15 AM
[2020-11-01 07:28] LABS: Basophils # (auto) 0.05 K/uL (0-0.2); Basophils % (auto) 0.5 %; Eosinophils # (auto) 0.51 K/uL (0-0.5); Eosinophils % (auto) 5.1 %; Hematocrit (blood only) 42.7 % (42-52); Hemoglobin 13.9 g/dL (14.0-18.0); Immature Granulocytes # (auto) 0.03 K/uL (0.00-0.02); Immature Granulocytes % (auto) 0.3 %; Lymphocytes # (auto) 3.01 K/uL (1.2-3.4); Lymphocytes % (auto) 30.2 %; Mean Corpuscular Hemoglobin 25.9 pg (25-34); Mean Corpuscular Hgb Conc 32.6 g/dL (32-36); Mean Corpuscular Volume 79.7 fL (80-100); Mean Platelet Volume 10.8 fL (7.4-10.4); Monocytes # (auto) 0.73 K/uL (0.11-0.59); Monocytes % (auto) 7.3 %; Neutrophils # (auto) 5.65 K/uL (1.4-6.5); Neutrophils % (auto) 56.6 %; Platelet Count 236 K/uL (130-400); RDW Coefficient of Variation 18.9 % (11.5-14.5); RDW Standard Deviation 54.7 fL (36.4-46.3); Red Blood Count 5.36 M/uL (4.7-6.1); White Blood Count 9.98 K/uL (4.8-10.8)
[2020-11-01 07:38] LABS: Partial Thromboplastin Ratio 1.7; Partial Thromboplastin Time 43.7 Seconds (21.0-31.0)
[2020-11-01 08:00] LABS: BUN Creatinine Ratio 5.4 (10-20); Blood Urea Nitrogen 5 mg/dl (7-18); Calcium 9.2 mg/dl (8.5-10.1); Carbon Dioxide 29 mmol/L (21-32); Chloride 102 mmol/L (98-107); Creatinine Clr Calc Pharmacy 161.8 ml/min; Est GFR (African American) 107.7; Glucose 237 mg/dl (70-99); Potassium 3.9 mmol/L (3.5-5.1); Sodium 137 mmol/L (136-145)
--- NOTE | 2020-11-01 08:01 | CT Scan Report ---
CT ANGIOGRAPHY OF THE CHEST, PULMONARY EMBOLUS PROTOCOL CLINICAL HISTORY: Chest pain. Shortness of breath. Evaluate for pulmonary embolus. COMPARISON STUDY: Chest radiograph August 27, 2020. Chest CT August 01, 2019. TECHNIQUE: Following IV administration of 119 mL of Optiray-320, helical axial images of the chest we re obtained utilizing the pulmonary embolus protocol. Maximal intensity projections and sagittal and coronal reformats were viewed on an independent 3D workstation. IV contrast was administered withou t complication. Automated exposure control was utilized for the study. A dose lowering technique wa s utilized adhering to the principles of ALARA. CT DOSE: 971.33 mGy.cm FINDINGS: No pulmonary emboli are identified. There is no thoracic aortic dissection. The size of th e heart is normal. There is no pericardial effusion. No enlarged thoracic lymph nodes are noted. Ther e is bilateral gynecomastia. Central airways are patent. There are linear opacities are unchanged and favors scarring or atelectasis. A few tiny pulmonary nodules are unchanged. These are likely benign. No new nodules are present. There is no consolidation to suggest pneumonia. No pneumothorax or pleur al effusion is noted. No acute fracture or suspicious lesion is identified within visualized portions of the bony thorax. Hepatic steatosis is noted within visualized portions of the upper abdomen. IMPRESSION: 1. No pulmonary emboli identified. 2. No acute process within the chest. 3. Hepatic steatosis. ACT 112: Negative or not required by law. Electronically signed by: Evelio Corbin M.D. 11/01/2020 8:00 AM
[2020-11-01 08:11] LABS: Chol HDL Ratio 5; Cholesterol 143 mg/dl (0-200); HDL Cholesterol 27 mg/dl; LDL Cholesterol Calculated 81 mg/dl; Triglycerides 174 mg/dl (0-150); Troponin I < 0.015 ng/ml (0-0.045); VLDL Cholesterol 35 mg/dl
[2020-11-01] MEDS ORDERED: ADVANCED PROBIOTIC 1250 MG CAPSULE PO SCH (09:00)
[2020-11-01] MEDS ORDERED: ASPIRIN 81 MG ECTAB PO SCH (09:00)
[2020-11-01] MEDS ORDERED: METHENAMINE HIPPURATE 1 GM TAB PO SCH (09:00)
[2020-11-01] MEDS ORDERED: FINASTERIDE 5 MG TAB PO SCH (09:00)
[2020-11-01] MEDS ORDERED: FLUTICASONE PROPIONATE NA SPR 16 GM BTL SCH (09:00)
[2020-11-01] MEDS ORDERED: FOLIC ACID 1 MG TAB PO SCH (09:00)
[2020-11-01] MEDS ORDERED: FAMOTIDINE 20 MG TAB PO SCH (09:00)
[2020-11-01] MEDS ORDERED: DOCUSATE SODIUM 100 MG CAP PO SCH (09:00)
[2020-11-01] MEDS ORDERED: NICOTINE 14 MG/24 HR PATCH TD SCH (09:00)
[2020-11-01] MEDS ORDERED: METOPROLOL SUCC 50MG EXT REL TAB PO SCH (09:00)
[2020-11-01] MEDS ORDERED: INSULIN GLARGINE SOLOSTAR 100 UNITS/ML 3 ML PEN SC SCH (09:00)
[2020-11-01] MEDS ORDERED: TAMSULOSIN HCL 0.4 MG CAP PO SCH (09:00)
[2020-11-01] MEDS ORDERED: SPIRONOLACTONE 25 MG TAB PO SCH (09:00)
[2020-11-01] MEDS ORDERED: ISOSORBIDE MONO EXTENDED REL 30 MG TABCR PO SCH (09:00)
[2020-11-01] MEDS ORDERED: POLYETHYLENE (MIRALAX) 17 GM PACK PO SCH (09:00)
[2020-11-01] MEDS ORDERED: UMECLIDINIUM BROMIDE 62.5MCG/BLISTER 7 PUFFS/INHALER INH SCH (09:00)
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
[2020-11-01 13:21] LABS: Partial Thromboplastin Ratio 1.5; Partial Thromboplastin Time 38.5 Seconds (21.0-31.0)
--- NOTE | 2020-11-01 17:57 | Electrocardiogram Report ---
Test Reason : Blood Pressure : / mmHG Vent. Rate : 120 BPM Atrial Rate : 120 BPM P-R Int : 138 ms QRS Dur : 096 ms QT Int : 320 ms P-R-T Axes : 036 046 062 degrees QTc Int : 452 ms Poor data quality, interpretation may be adversely affected Sinus tachycardia RSR' or QR pattern in V1 suggests right ventricular conduction delay Nonspecific ST and T wave abnormality Abnormal ECG When compared with ECG of 27-AUG-2020 17:06, Nonspecific T wave abnormality now evident in Lateral leads Confirmed by Stanton Porter ([id number]) on 11/01/2020 5:57:24 PM Referred By: Roberto Askew Confirmed By:Stanton Porter
--- NOTE | 2020-11-01 18:03 | Electrocardiogram Report ---
Test Reason : Blood Pressure : / mmHG Vent. Rate : 110 BPM Atrial Rate : 110 BPM P-R Int : 148 ms QRS Dur : 102 ms QT Int : 334 ms P-R-T Axes : 007 046 056 degrees QTc Int : 452 ms Sinus tachycardia RSR' or QR pattern in V1 suggests right ventricular conduction delay Nonspecific ST and T wave abnormality Abnormal ECG When compared with ECG of 31-OCT-2020 16:57, (unconfirmed) T wave inversion more evident in Anterior leads Confirmed by Stanton Porter ([id number]) on 11/01/2020 6:03:18 PM Referred By: Roberto Askew Confirmed By:Stanton Porter
[2020-11-01] MEDS ORDERED: ATORVASTATIN 40 MG TAB PO SCH (21:00)
--- NOTE | 2020-11-02 14:45 | Discharge Summary ---
Date of Service November 01, 2020 Admission HPI Per Admitting Provider History obtained from patient and records. Medical history is significant for chronic diastolic heart failure (EF 60 to 64%, TTE 2019), history STEMI as per records, history subdural hematoma/subarachnoid hemorrhage as per records, hypertension, hyperlipidemia, COPD, recurrent PE on Coumadin, DM 2 on oral meds, chronic pain on buprenorphine, mood disorder, chronic anemia (baseline hemoglobin 12-13)-10, recurrent UTIs secondary to BPH/chronic urinary retention indwelling Fontaine catheter on methenamine suppression Rx, ongoing tobacco abuse, drug-seeking behavior as per records. Patient confined at [facility] October 2019 for traumatic subdural hematoma/subarachnoid hemorrhage. No neurosurgical intervention. ST elevation NE noted on the inferior leads on admission EKG at [facility] without active chest pain complaints. Patient however gave hx of exertional dyspnea and chest pain over the last few months prior to confinement as per documentation. No cardiac catheterization due to anticoagulation current indications at time of confinement as per documentation. Patient discharged on aspirin for CAD prevention. Coumadin for recurrent pulmonary embolism eventually resumed outpatient. Last confinement at [facility] June 2020 for chest pain. Cardiac enzymes negative during confinement. No cardiology evaluation during confinement. Patient not feeling well for about a week. Minimal abdominal discomfort with emesis. Usual bowel movement. No fever, no chills. Achy left-sided chest pain the last few days with radiation to the left arm. Intermittent symptoms with some relief from nitroglycerin as per documentation. Some shortness of breath. Usual smokers cough symptoms. Fluid retention and weight gain of about 20 pounds in the last 2 weeks despite fluid restriction of 2 L and compliance with diuretic regimen. Patient denies dietary indiscretion. Patient brought to the ER for evaluation. Given Lasix for possible CHF. Disagreement between patient and ER nurse regarding [facility] care plan to be followed during hospital stay. Medical History as above Surgical History : Foot/toe surgery, nerve repair, hand surgery, scalp neck wound injury Family History : Breast cancer, heart disease, COPD Personal/Social history : One pack daily, no EtOH intake, disabled Admission Exam Per Admitting Provider GENERAL: Comfortable, morbidly obese, no respiratory distress SKIN: Normal color, warm HEENT: Partial alopecia, [place] palpebral conjunctivae, no ptosis, dry buccal mucosa NECK : Supple, short neck, no tenderness CHEST : Decreased breath sounds, occasional expiratory wheezes, no tenderness HEART : Tachycardic , no obvious murmurs ABDOMEN: distention, no overt tenderness EXTREMITIES : Minimal LE swelling, no LE tenderness, no other conspicuous deformities noted NEUROLOGIC : Coherent, no facial asymmetry, no other gross focality Principal Diagnosis Atypical chest pain Discharge Exam (performed on 11/01/20, day of discharge) CONSTITUTIONAL: morbidly obese, vitals as above, generally well-appearing EYES: normal conjunctivae, no scleral icterus ENT: external ear and nose normal, MMM NECK: trachea midline, obese RESPIRATORY: clear to auscultation bilaterally, no crackles or rales, some mild wheezing throughout, normal respiratory effort CARDIOVASCULAR: tachy rate and regular rhythm, S1 and 2 heard without murmurs, gallops or rubs, no JVD, no peripheral edema CHEST: inspection of chest was normal GASTROINTESTINAL: obese making thorough exam difficult but in general, soft, nontender, nondistended, no guarding : fontaine in place with yellow urine in bag. MUSCULOSKELETAL: strength 5/5 throughout, head is normocephalic and atraumatic, generally moving arms and legs symmetrically, gait not assessed. SKIN: warm and dry NEUROLOGIC: No facial palsy, no dysarthria. CN 2-12 grossly intact, normal c ognition, normal speech, no tremor. No gross focal deficits. PSYCHIATRIC: alert cooperative and oriented to person, place and time. Discharge Data Allergies Allergy/AdvReac Type Severity Reaction Status Date / Time fentanyl Allergy Intermediate RASH/HIVES/SKIN Verified 10/31/20 23:30 REDNESS naloxone AdvReac Severe extremely Verified 10/31/20 23:30 sick acetaminophen AdvReac Intermediate Unknown Verified 10/31/20 23:30 ibuprofen AdvReac Intermediate Nausea Verified 10/31/20 23:30 valproic acid AdvReac Intermediate PANCREATITS Verified 10/31/20 23:30 ADHESIVE TAPE AdvReac Intermediate SKIN Uncoded 10/31/20 23:30 IRRITATION Consultations 11/01/20 00:05 ED Decision to Admit Stat 11/01/20 01:42 Consult Case Management - Discharge Planning Routine 11/01/20 01:59 Consult Cardiology Routine Ordered Studies [facility], [id number] Ultrasound Report Patient: REJI AMAYA AAdmit Date: 11/01/20#: [id number]: [address]Acct ID:[id number]: Date: 1970[facility] Zip: [id number]: [address]Location: 1ESex: MRoom/Bed: [id number] Phy: Mala Grace, MILTONiagnosis: CHEST PAINPri Phy: Roberto Askew MDService Date: 11/01/20Fa Phy:Interpreting Phy: Evelio Corbin MDAdmit Phy: Waldemar Galarza MD Ordering Phy: Waldemar Galarza MD cc: ~ US abdomen ltd ascites CLINICAL HISTORY: Abdominal distention. Evaluate for ascites. COMPARISON STUDY: CT of the abdomen and pelvis August 27, 2020. TECHNIQUE: Sonography of the abdomen and pelvis was performed to assess for ascites. FINDINGS: No ascites was identified within the abdomen or pelvis. Exam is compromised by suboptimal penetration. IMPRESSION: No ascites. ACT 112: Negative or not required by law. Hospital Course (1) Atypical chest pain: (2) Drug-seeking behavior: (3) Subtherapeutic international normalized ratio (INR): (4) Morbid obesity: (5) Opioid dependence: (6) Tobacco use: The patient is a 50-year-old man with a history of drug-seeking behavior previously described as opiate use disorder who presented to the emergency room reporting chest pain. The patient has a history of coronary disease, diabetes, COPD, and morbid obesity. He continues to smoke cigarettes and is on chronic Subutex for pain. He has a chronic indwelling Fontaine with a history of recurrent UTIs, currently reporting no urinary symptoms. Per record review, this patient has a history of manipulative behavior with requests for pain medications including shooting himself in the foot, stabbing himself with a knife, throwing himself to the floor, forcing himself to vomit, and other extreme measures to obtain prescription medication including narcotics. In the ER he was medicated with oxycodone 15 and Zofran for nausea and pain. He reported shortness of breath and was given Lasix 40 mg IV. EKG revealed sinus tachycardia without acute ischemic changes and there was no evidence of troponin elevation. There was also no evidence of infection. He had a mild white count elevation to 12 and INR was subtherapeutic at 1.3. The patient has a history of supratherapeutic INR in recent months which has hospitalized him as well as a history of noncompliance with medications and medical recommendations. Adjustment of his Coumadin level was thought best to be done as an outpatient with a repeat INR level early next week through his outpatient channels. BNP was negative. The patient again requested more pain medication stating he could not lie down on this CT scanner without narcotics and was given additional morphine [address] scan of the chest revealed no evidence of pulmonary embolism or pneumonia. Covid and influenza testing was negative. He was admitted to the hospitalist service and placed on telemetry. He remained in sinus rhythm and there were no alarm events overnight on telemetry review the following morning. He was placed on IV heparin for a history of recurrent PE in the past with subtherapeutic INR. Cardiology was consulted and recommended symptoms were not consistent with ischemia based on an unremarkable EKG and negative serial troponins. An echocardiogram was performed revealing no acute wall motion abnormalities and he was advised to continue his current medical therapy for coronary disease including aspirin, atorvastatin, Imdur, and metoprolol and spironolactone. He voiced his displeasure at this news and came up with multiple reasons and requests to stay and ask for more pain medication. These were denied. He asked for a course of prednisone for shortness of breath, and was advised to quit smoking. He notably had nicotine stains on his fingers. Prior to offering any options for helping him quit smoking he became angry and upset telling me to get out of the room and waving his hand. He then apologized started crying and asked me for taxi money. We discussed that he had a and she could come get him. He then agreed that he could call her. He subsequently called her when I left the room and was speaking very fast in full sentences with no issues, voicing his intense displeasure using explicit language to describe the people and decisions made for him to be discharged from the hospital. This was heard from just outside the room while performing documentation for discharge. Urine culture revealed evidence of MSSA, 30 K CFU, which is felt to be likely a contaminant and was not treated with antibiotics. Close primary care follow-up is recommended. The patient states he is now a member of the [facility] at home program who is frequently monitoring him in the home environment. Total Time Total Time Spent Total Time Spent (In Minutes): 60 Total Time Includes: Examination of the Patient, Discharge Planning, Medication Reconciliation and Communication With Other Providers Discharge Plan Discharge Items Patient Disposition: Home - Self-Care Reason For Visit: CHEST PAIN Discharge Diagnosis: Atypical chest pain Tobacco use Opiate Use Disorder Condition on Discharge: Good Activity: Resume your previous activity Non-emergency contact: Primary Care Provider Call non-emergency contact if: you have any medication questions, your symptoms worsen, your pain is not controlled, your pain is worsening and your pain is unusual for you Follow-up/Referrals: Roberto Askew MD [Primary Care Provider] - Diet: Carb Consistent or DM2 and Low Sodium (2gm) Addtl Attending Provider Instructions: Please take all medications as instructed on discharge list below. Please follow-up with your primary care provider within one week to further investigate your symptoms of pain and dyspnea. It was a pleasure taking care of you! Please call if you have any questions or problems. You can reach a [facility] hospitalist on duty at [facility] 24 hours a day by calling [phone]. Take care of yourself. Mala Grace DO [facility] Hospitalist Pending Studies at Discharge: No Stand-Alone Forms: My [facility], Smoking Cessation Medications and DC Order Prescriptions: Continued polyethylene glycol 3350 [Miralax] 17 gram powder in packet 17 g PO QAM RF: 0 nitroglycerin [Nitrostat] 0.4 mg tablet, sublingual 0.4 mg Sublingual DIRECTED PRN (Reason: CHEST PAIN) RF: 0 nystatin 100,000 unit/gram Powder 1 applic TOPICAL TID PRN (Reason: Skin Irritation) RF: 0 cyclobenzaprine 10 mg Tablet 10 mg PO BID PRN (Reason: Muscle Spasm) RF: 0 ipratropium-albuterol 0.5 mg-3 mg(2.5 mg base)/3 mL Solution For Nebulization 3 ml INHALATION Q6H PRN (Reason: Shortness Of Breath Or Wheezing) RF: 0 docusate sodium 100 mg Capsule 100 mg PO BID RF: 0 Lactinex 1 million cell Tablet,Chewable 1 tab PO BID RF: 0 duloxetine 60 mg capsule,delayed release(DR/EC) 60 mg PO DAILY RF: 0 famotidine 20 mg tablet 20 mg PO DAILY RF: 0 methenamine hippurate 1 gram tablet 1 g PO DAILY RF: 0 hydroxyzine HCl 25 mg tablet 25 mg PO QID PRN (Reason: Anxiety) RF: 0 fluticasone propionate 50 mcg/actuation spray,suspension 2 spray Intranasal DAILY RF: 0 aspirin [Ecotrin Low Strength] 81 mg tablet,delayed release (DR/EC) 81 mg PO QAM RF: 0 Spiriva with HandiHaler 18 mcg capsule, w/inhalation device 1 puff inhalation QAM RF: 0 finasteride 5 mg tablet 5 mg PO QAM RF: 0 tamsulosin [Flomax] 0.4 mg Capsule 0.4 mg PO QAM RF: 0 metoprolol succinate 50 mg Tablet Extended Release 24 Hr 50 mg PO DAILY RF: 0 spironolactone 25 mg Tablet 25 mg PO QAM RF: 0 glipizide 5 mg tablet 5 mg PO BID Qty: 60 RF: 1 atorvastatin 80 mg tablet 80 mg PO QPM RF: 0 sennosides [senna] 8.6 mg Tablet 8.6 mg PO DAILY PRN (Reason: Constipation) RF: 0 folic acid 1 mg Tablet 1 mg PO QAM RF: 0 furosemide [Lasix] 40 mg tablet 40 mg PO BID RF: 0 lorazepam 0.5 mg tablet 0.5 mg PO Q8 PRN (Reason: Anxiety) RF: 0 potassium chloride 20 mEq Tablet Extended Release 20 meq PO BID RF: 0 albuterol sulfate 90 mcg/actuation Hfa Aerosol Inhaler 2 puff INHALATION Q4 PRN (Reason: Dyspnea) RF: 0 ondansetron HCl [Zofran] 4 mg Tablet 4 mg PO Q8 PRN (Reason: Nausea And Vomiting) RF: 0 omeprazole 20 mg Capsule,Delayed Release(Dr/Ec) 20 mg PO DAILYBB RF: 0 guaifenesin [Mucinex] 600 mg Tablet Extended Release 12hr 600 mg PO Q12H PRN (Reason: Congestion) RF: 0 gabapentin 800 mg tablet 800 mg PO TID RF: 0 warfarin 5 mg tablet See Rx Instructions .ROUTE .COMPLEX RF: 0 buprenorphine HCl 8 mg tablet, sublingual 8 mg SUBLINGUAL TID RF: 0 isosorbide mononitrate 30 mg Tablet Extended Release 24 Hr 30 mg PO DAILY RF: 0 Discharge Orders: Discharge Order (Routine); Ordered 11/01/20 Ordered By: Mala Grace Admission Data Admit Date/Time: 11/01/20 00:00 Attending Provider: Mala Grace Admit Provider: Waldemar Galarza Primary Care Provider: Roberto Askew Other Providers: Waldemar Galarza ; Yvon Del Valle ; Dick Cardoza ; Miguel Angel Lee ; Jacob Penn ; Manuel English ; Owen Saavedra ; Berna Richardson ; Josefina Chavez ; Popeye Fall Other Interventions: Discharge Summary Assessment (RN) Last Done: 11/01/20 16:31
== END 2020-11-01 17:31 | disposition home or self-care (01) ==
LOC: 1E 16:47 → ED 16:47 → 1E 11-01 01:47

== ENCOUNTER 2021-01-12 19:45 | Inpatient (IN) ==
[2021-01-12] MEDS ORDERED: ALBUT/IPRATROP 3MG/0.5MG NEB 3 ML VIAL ONE (19:54)
[2021-01-12 20:50] LABS: Basophils # (auto) 0.03 K/uL (0-0.2); Basophils % (auto) 0.2 %; Hematocrit (blood only) 41.4 % (42-52); Immature Granulocytes # (auto) 0.08 K/uL (0.00-0.02); Immature Granulocytes % (auto) 0.5 %; Lymphocytes # (auto) 2.05 K/uL (1.2-3.4); Lymphocytes % (auto) 11.8 %; Mean Corpuscular Hemoglobin 27.4 pg (25-34); Mean Corpuscular Hgb Conc 33.8 g/dL (32-36); Mean Platelet Volume 10.4 fL (7.4-10.4); Monocytes # (auto) 0.98 K/uL (0.11-0.59); Monocytes % (auto) 5.7 %; Neutrophils # (auto) 14.19 K/uL (1.4-6.5); Neutrophils % (auto) 81.8 %; Platelet Count 295 K/uL (130-400); RDW Coefficient of Variation 17.4 % (11.5-14.5); RDW Standard Deviation 51.8 fL (36.4-46.3); Red Blood Count 5.11 M/uL (4.7-6.1); White Blood Count 17.33 K/uL (4.8-10.8)
--- NOTE | 2021-01-12 21:07 | Emergency Department Note ---
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 order was placed in the EMR. Upon my interpretation, he was in sinus tachycardia with a rate of 100. Impression & Plan SOB (shortness of breath), COPD (chronic obstructive pulmonary disease), Chest pain, Elevated INR, Hematuria Discharge Plan Visit Data Chief Complaint: Illness Stated Complaint: ILLNESS ED Provider: Siva Shipley Discharge Problem: SOB (shortness of breath), COPD (chronic obstructive pulmonary disease), Chest pain, Elevated INR, Hematuria Forms Stand Alone Forms: [facility] Prescriptions Prescriptions: No Action ondansetron HCl [Zofran] 4 mg tablet 4 mg PO Q8 PRN (Reason: Nausea And Vomiting) Qty: 30 RF: 0 promethazine 12.5 mg tablet 12.5 mg PO Q12H PRN (Reason: nausea and vomiting) Qty: 30 RF: 0 polyethylene glycol 3350 [Miralax] 17 gram powder in packet 17 g PO QAM RF: 0 nitroglycerin [Nitrostat] 0.4 mg tablet, sublingual 0.4 mg Sublingual DIRECTED PRN (Reason: CHEST PAIN) RF: 0 nystatin 100,000 unit/gram Powder 1 applic TOPICAL TID PRN (Reason: Skin Irritation) RF: 0 cyclobenzaprine 10 mg Tablet 10 mg PO BID PRN (Reason: Muscle Spasm) RF: 0 ipratropium-albuterol 0.5 mg-3 mg(2.5 mg base)/3 mL Solution For Nebulization 3 ml INHALATION Q6H PRN (Reason: Shortness Of Breath Or Wheezing) RF: 0 docusate sodium 100 mg Capsule 100 mg PO BID RF: 0 Lactinex 1 million cell Tablet,Chewable 1 tab PO BID RF: 0 duloxetine 60 mg capsule,delayed release(DR/EC) 60 mg PO DAILY RF: 0 famotidine 20 mg tablet 20 mg PO DAILY RF: 0 methenamine hippurate 1 gram tablet 1 g PO DAILY RF: 0 hydroxyzine HCl 25 mg tablet 25 mg PO QID PRN (Reason: Anxiety) RF: 0 fluticasone propionate 50 mcg/actuation spray,suspension 2 spray Intranasal DAILY RF: 0 aspirin [Ecotrin Low Strength] 81 mg tablet,delayed release (DR/EC) 81 mg PO QAM RF: 0 Spiriva with HandiHaler 18 mcg capsule, w/inhalation device 1 puff inhalation QAM RF: 0 finasteride 5 mg tablet 5 mg PO QAM RF: 0 tamsulosin [Flomax] 0.4 mg Capsule 0.4 mg PO QAM RF: 0 metoprolol succinate 50 mg Tablet Extended Release 24 Hr 75 mg PO BID RF: 0 spironolactone 25 mg Tablet 25 mg PO QAM RF: 0 atorvastatin 80 mg tablet 80 mg PO QPM RF: 0 sennosides [senna] 8.6 mg Tablet 8.6 mg PO DAILY PRN (Reason: Constipation) RF: 0 folic acid 1 mg Tablet 1 mg PO QAM RF: 0 furosemide [Lasix] 40 mg tablet 40 mg PO BID RF: 0 lorazepam 0.5 mg tablet 0.5 mg PO Q8 PRN (Reason: Anxiety) RF: 0 potassium chloride 20 mEq Tablet Extended Release 20 meq PO BID RF: 0 albuterol sulfate 90 mcg/actuation Hfa Aerosol Inhaler 2 puff INHALATION Q4 PRN (Reason: Dyspnea) RF: 0 omeprazole 20 mg Capsule,Delayed Release(Dr/Ec) 20 mg PO DAILYBB RF: 0 guaifenesin [Mucinex] 600 mg Tablet Extended Release 12hr 600 mg PO Q12H PRN (Reason: Congestion) RF: 0 gabapentin 800 mg tablet 800 mg PO TID RF: 0 warfarin 5 mg tablet 0 mg PO .DAILY/UD RF: 0 buprenorphine HCl 8 mg tablet, sublingual 8 mg SUBLINGUAL TID RF: 0 isosorbide mononitrate 30 mg Tablet Extended Release 24 Hr 30 mg PO DAILY RF: 0 doxycycline hyclate 100 mg Capsule 100 mg PO BID RF: 0 glipizide 10 mg tablet 10 mg PO BID RF: 0 prednisone 20 mg Tablet 20 mg PO .TAPER UD RF: 0 Discharge Problem: COPD (chronic obstructive pulmonary disease) Qualifiers: COPD type: unspecified COPD Qualified Code(s): J44.9 - Chronic obstructive pulmonary disease, unspecified Chest pain Qualifiers: Chest pain type: other chest pain Qualified Code(s): R07.89 - Other chest pain Hematuria Qualifiers: Hematuria type: gross Qualified Code(s): R31.0 - Gross hematuria
[2021-01-12 21:11] LABS: Partial Thromboplastin Ratio 2.3; Prothrombin Time 72.9 Seconds (9.0-12.0)
[2021-01-12 21:17] LABS: INR 8.5 (0.9-1.1)
[2021-01-12 21:18] LABS: Partial Thromboplastin Time 61.8 Seconds (21.0-31.0)
[2021-01-12 21:21] LABS: Alanine Aminotransferase 32 U/L (12-78); Albumin Globulin Ratio 0.8 (0.9-2); Albumin Level 3.3 gm/dl (3.4-5.0); Alkaline Phosphatase 159 U/L (45-117); Aspartate Aminotransferase 19 U/L (15-37); BUN Creatinine Ratio 11.4 (10-20); Bilirubin,Total 0.4 mg/dl (0.2-1); Blood Urea Nitrogen 13 mg/dl (7-18); Calcium 9.6 mg/dl (8.5-10.1); Carbon Dioxide 30 mmol/L (21-32); Chloride 94 mmol/L (98-107); Est GFR (African American) 84.6; Globulin 4.3 gm/dl (2.5-4.0); Glucose 440 mg/dl (70-99); Magnesium 2.1 mg/dl (1.8-2.4); Potassium 3.9 mmol/L (3.5-5.1); Sodium 131 mmol/L (136-145); Total Protein 7.6 gm/dl (6.4-8.2); Troponin I < 0.015 ng/ml (0-0.045)
[2021-01-12 21:57] LABS: Beta-Hydroxybutyrate 1.28 mg/dl (0.2-2.81); NT Pro B Type Natriuretic Pept 259 pg/ml (0-900)
[2021-01-12] MEDS ORDERED: NovoLIN-R INSULIN PER UNIT CHARGE IV STA (22:04)
[2021-01-12] MEDS ORDERED: METOPROLOL TARTRATE 25 MG TAB PO STA (22:15)
[2021-01-12] MEDS ORDERED: INSULIN GLARGINE SOLOSTAR 100 UNITS/ML 3 ML PEN SC STA (22:35)
[2021-01-12 22:55] LABS: Hematocrit (blood only) 40.5 % (42-52)
[2021-01-12] MEDS ORDERED: MoRPHine SULFATE 2 MG/ML CARP IV STA (23:09)
[2021-01-12] MEDS ORDERED: ACETAMINOPHEN 1,000 MG/100 ML VIAL IV STA (23:12)
[2021-01-12] MEDS ORDERED: PHYTONADIONE 10 MG in SODIUM CHLORIDE 0.9% 50 ML IV ONE (23:18)
[2021-01-12] MEDS ORDERED: PANTOPRAZOLE BOLUS/DRIP 1 EA IV STA (23:19)
[2021-01-12] MEDS ORDERED: ACETAMINOPHEN 325 MG TAB PO PRN (23:20)
[2021-01-12] MEDS ORDERED: PANTOprazole 80 MG in DEXTROSE 5% 100 ML IV STA (23:22)
[2021-01-12] MEDS ORDERED: XOPENEX/ATROVENT 1.25mg/0.5MG NEB COMBO NEB STA (23:27)
[2021-01-12] MEDS ORDERED: LACTATED RINGER'S 1,000 ML IV ONE (23:27)
[2021-01-12 23:28] LABS: Appearance Urine Cloudy (Clear); Bacteria Urine Automated Negative (Negative); Bilirubin Urine Negative (Negative); Blood Urine 3+ (Negative); Cast Urine Automated 0 /lpf (0-5); Color Urine Orange; Epithelial Cell Urine Auto 0-5 /lpf (0-5); Glucose Urine UA 3+ (Negative); Ketones Urine Negative (Negative); Leukocyte Esterase Urine Trace (Negative); Nitrite Urine Negative (Negative); Protein Urine Trace (Negative); RBC Urine Automated >30 /hpf (0-4); Specific Gravity Urine 1.031 (1.000-1.030); Urobilinogen Urine Negative (Negative); pH Urine 6.5 (4.5-7.5)
[2021-01-12] MEDS ORDERED: PANTOprazole 40 MG in DEXTROSE 5% 100 ML IV SCH (23:30)
[2021-01-12] MEDS ORDERED: LEVALBUTEROL 1.25MG/0.5ML NEB INH STA (23:39)
[2021-01-12] MEDS ORDERED: IPRATROPIUM BROMIDE NEB SOLN 0.02% 2.5 ML VIAL INH STA (23:39)
[2021-01-12] MEDS ORDERED: buprenorphine HCL 8 MG SUBL SL STA (23:49)
[2021-01-12] MEDS ORDERED: PIPERACILL/TAZOBAC CONSULT ACTIVE PRN (23:52)
[2021-01-12] MEDS ORDERED: PIPERACILLIN/TAZOBACTAM 4.5 GM/120 ML BAG IV ONE (23:52)
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
[2021-01-13] MEDS ORDERED: OPTIRAY 350 500ml IV ONE (00:40)
[2021-01-13 01:08] LABS: Amphetamines+Metham, Urine Neg (Neg); Barbiturates, Urine Neg (Neg); Benzodiazepine, Urine Neg (Neg); Cocaine, Urine Neg (Neg); MDMA (Ecstacy), Urine Neg (Neg); Methadone, Urine Neg (Neg); Opiate, Urine Neg (Neg); Phencyclidine, Urine Neg (Neg)
[2021-01-13] MEDS ORDERED: SODIUM CHLORIDE 0.9% 250 ML IV PRN (03:14)
[2021-01-13] MEDS ORDERED: GLUCOSE 10 TABS/TUBE PO PRN (05:00)
[2021-01-13] MEDS ORDERED: DEXTROSE 50% 50 ML SYRINGE IV PRN (05:00)
[2021-01-13] MEDS ORDERED: CARBOHYDRATES FOR HYPOGLYCEMIA PO PRN (05:00)
[2021-01-13] MEDS ORDERED: hydrOXYzine HCl 25 MG TAB PO PRN (05:00)
[2021-01-13] MEDS ORDERED: SENNA 8.6 MG TAB PO PRN ×2 (05:00)
[2021-01-13] MEDS ORDERED: GLUCAGON FOR INJ 1 MG VIAL SQ PRN (05:00)
[2021-01-13] MEDS ORDERED: GLUCOSE 40% GEL 15 GM TUBE PO PRN (05:00)
[2021-01-13] MEDS: INSULIN ASPART 100 UNITS/ML 3 ML PEN SC SCH ×4 (06:30→21:47)
--- NOTE | 2021-01-13 06:47 | XRay Report ---
XR chest 1V portable CLINICAL HISTORY: Shortness of breath COMPARISON STUDY: No previous studies for comparison. FINDINGS: The heart is at the upper limits of normal in size. There is no failure. There is no lobar consolidation. There are no pleural effusions. There is a prominent left cardiophrenic angle fat pad. Slight interstitial prominence is likely related to technical factors given the patient's body habit us.[ IMPRESSION: No active disease in the chest. ACT 112: Negative or not required by law. Electronically signed by: Luis Castro M.D. 01/13/2021 6:45 AM
[2021-01-13] MEDS: DOCUSATE SODIUM/SENNA 50/8.6MG TAB PO SCH ×3 (06:51→21:56)
[2021-01-13] MEDS ORDERED: XOPENEX/ATROVENT 1.25mg/0.5MG NEB COMBO NEB SCH (07:00)
[2021-01-13] MEDS: IPRATROPIUM BROMIDE NEB SOLN 0.02% 2.5 ML VIAL INH SCH ×3 (07:05→20:09)
[2021-01-13] MEDS: LEVALBUTEROL 1.25MG/0.5ML NEB INH SCH ×3 (07:05→20:09)
[2021-01-13] MEDS: NICOTINE 21 MG/24 HR TDSY TD SCH ×2 (07:08→09:11)
[2021-01-13] MEDS ORDERED: LACTATED RINGER'S 1,000 ML IV SCH (07:15)
--- NOTE | 2021-01-13 07:15 | CT Scan Report ---
HEAD CT NONCONTRAST CT DOSE: 614.27 mGy.cm HISTORY: Headache. TECHNIQUE: Multiaxial CT images of the head were performed without the use of intravenous contrast. A utomated exposure control was utilized for this study. A dose lowering technique was utilized adheri ng to the principles of ALARA. Comparison: 11/15/2020. Findings: Chronic opacification of the right maxillary sinus and moderate mucosal thickening within t he left maxillary sinus. This remains unchanged. The calvarium and skull base are intact. The ventric les and sulci are within normal limits. There is no mass, hematoma, midline shift, or acute infarct. Impression: No significant change compared to the prior study. No acute intracranial abnormality. ACT 112: Negative or not required by law. Electronically signed by: Vidal Keller M.D. 01/13/2021 7:13 AM
--- NOTE | 2021-01-13 07:43 | CT Scan Report ---
CT abd pelvis IV con only CLINICAL HISTORY: Severe abdominal pain COMPARISON STUDY: Noncontrast CT scan dated 08/27/2020 TECHNIQUE: The patient was scanned in a dynamic helical fashion during intravenous and ministration 1 20 cc of Optiray 320 A dose lowering technique was utilized adhering to the principles of ALARA. CT DOSE: 2227.06 mGy.cm FINDINGS: Lower chest: There are mild basilar atelectatic changes. Liver: There is hepatic steatosis. No focal hepatic masses are visualized. Gallbladder: Unremarkable. Spleen: Normal in size and attenuation. Pancreas: Unremarkable. Adrenal glands: Unremarkable. Kidneys: There is a nonobstructing 4 mm right renal calculus. There is no hydronephrosis. Bowel: There are no transition zones to indicate bowel obstruction. There is no evidence of acute div erticulitis. There is suture material at the level the cecum likely secondary to a prior appendectomy . There is moderate colonic stool present. Peritoneum: There is no intraperitoneal free air or abdominal ascites. There is a fat-containing umbi lical hernia Vasculature: The abdominal aorta is normal in course and caliber. Adenopathy: None. Pelvic viscera: There is an indwelling Lloyd catheter Skeletal structures: No destructive osseous lesions are seen. IMPRESSION: 1. No evidence of bowel obstruction. No evidence of free air 2. No evidence of acute appendicitis. No evidence of acute diverticulitis 3. Fat-containing umbilical hernia 4. Nonobstructing 4 mm right renal calculus ACT 112: Negative or not required by law. Electronically signed by: Luis Castro M.D. 01/13/2021 7:42 AM
[2021-01-13] MEDS: PIPERACILLIN/TAZOBACTAM 4.5 GM in DEXTROSE 5% 100 ML IV SCH ×3 (07:53→21:51)
[2021-01-13 08:44] LABS: Basophils # (auto) 0.05 K/uL (0-0.2); Basophils % (auto) 0.3 %; Eosinophils # (auto) 0.07 K/uL (0-0.5); Eosinophils % (auto) 0.4 %; Hematocrit (blood only) 40.1 % (42-52); Hemoglobin 13.4 g/dL (14.0-18.0); Immature Granulocytes # (auto) 0.04 K/uL (0.00-0.02); Immature Granulocytes % (auto) 0.3 %; Lymphocytes # (auto) 4.42 K/uL (1.2-3.4); Mean Corpuscular Hemoglobin 27.1 pg (25-34); Mean Corpuscular Hgb Conc 33.4 g/dL (32-36); Mean Corpuscular Volume 81.2 fL (80-100); Mean Platelet Volume 10.2 fL (7.4-10.4); Monocytes % (auto) 6.3 %; Neutrophils # (auto) 10.19 K/uL (1.4-6.5); Neutrophils % (auto) 64.7 %; Platelet Count 280 K/uL (130-400); RDW Coefficient of Variation 17.6 % (11.5-14.5); RDW Standard Deviation 52.5 fL (36.4-46.3); Red Blood Count 4.94 M/uL (4.7-6.1); White Blood Count 15.77 K/uL (4.8-10.8)
[2021-01-13] MEDS: PANTOprazole 40 MG in DEXTROSE 5% 100 ML IV SCH ×4 (08:52→22:41)
[2021-01-13] MEDS: TAMSULOSIN HCL 0.4 MG CAP PO SCH (08:53)
[2021-01-13] MEDS: FOLIC ACID 1 MG TAB PO SCH (08:53)
[2021-01-13 08:54] LABS: INR 2.1 (0.9-1.1); Prothrombin Time 19.9 Seconds (9.0-12.0)
[2021-01-13] MEDS: METOPROLOL SUCC 25MG EXT REL TAB PO SCH ×2 (08:54→21:58)
[2021-01-13] MEDS: predniSONE 20 MG TAB PO SCH (08:54)
[2021-01-13] MEDS: GABAPENTIN 800 MG TAB PO SCH ×3 (08:54→21:58)
[2021-01-13] MEDS: FINASTERIDE 5 MG TAB PO SCH (08:55)
[2021-01-13] MEDS: ISOSORBIDE MONO EXTENDED REL 30 MG TABCR PO SCH (08:55)
[2021-01-13] MEDS: ADVANCED PROBIOTIC 1250 MG CAPSULE PO SCH ×2 (08:55→21:58)
[2021-01-13] MEDS: DOXYCYCLINE HYCLATE 100 MG CAP PO SCH ×2 (08:56→21:57)
[2021-01-13] MEDS: DULoxetine HCL 60 MG CAP PO SCH (08:56)
[2021-01-13] MEDS: FLUTICASONE PROPIONATE NA SPR 16 GM BTL SCH (08:56)
[2021-01-13] MEDS: POLYETHYLENE (MIRALAX) 17 GM PACK PO SCH (08:57)
[2021-01-13] MEDS ORDERED: PANTOprazole 40 MG in SYRINGE 0 ML IV SCH (09:00)
[2021-01-13] MEDS: buprenorphine HCL 8 MG SUBL SL SCH ×3 (09:03→21:51)
[2021-01-13 09:21] LABS: BUN Creatinine Ratio 13.7 (10-20); Calcium 9.6 mg/dl (8.5-10.1); Creatinine Clr Calc Pharmacy 190.6 ml/min; Est GFR (African American) 120.1; Est GFR (Non-African American) 103.6; Potassium 3.1 mmol/L (3.5-5.1)
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
[2021-01-13 12:11] LABS: Hematocrit (blood only) 39.1 % (42-52); Hemoglobin 13.1 g/dL (14.0-18.0)
[2021-01-13 12:25] LABS: INR 1.8 (0.9-1.1)
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
--- NOTE | 2021-01-13 13:58 | Hospitalist Progress Note ---
Date of Service January 13, 2021 Assessment & Plan (1) UGIB (upper gastrointestinal bleed): - Heme positive melanotic stool noted rectal exam done at the ER. - History gastritis, hiatal hernia from 2019 EGD - Coumadin coagulopathy, history of recurrent PE - Recent steroid Rx for bronchitis possibly contributing to gastric irritation - Severe Sepsis on admission: Possibly recurrent UTI in the setting of chronic indwelling Lloyd catheter - Complicated bronchitis/COPD exacerbation, recent outpatient course of doxycycline initiated by PCP - Hyperglycemic on admission -Hypokalemia History of diabetes mellitus type 2 History of traumatic subdural hematoma/subarachnoid hemorrhage in the setting of Coumadin coagulopathy (10/2019 [facility] confinement) History of chronic diastolic heart failure (EF 55 to 60%, TTE 2020 History of coronary artery disease History of hypertension History of hyperlipidemia on statin History of Chronic pain on Subutex, history of drug-seeking behavior as per records Ongoing tobacco abuse Globin remains stable. Continue to trend CBC every 8 hours. Patient received vitamin K and 2 units of FFP this morning INR down to 1.8. Continue holding Coumadin for now. Appreciate gastroenterology input. Patient remains n.p.o. Plan to go for EGD later today. Continue with the PPI infusion. CS, Zosyn for complicated UTI, continue Doxycycline for bronchitis Lactic acidosis is resolved. Maintenance IV fluids while patient is p.o. Continue holding DISEASE AND INSECT CONTROL BOSS diuretics for now. Low-dose prednisone for 3 more days for COPD exacerbation, nebs RTC Facilitate home beta-nasim Rx basal insulin adjusted for n.p.o. status, ISS BG goal 110-140, carb count cover age when patient eating Patient may benefit from pharmacy glycemic control consultation, possible candidate for home insulin on discharge DM education Judicious narcotic use given drug-seeking behavior history Nicotine patch DVT prophylaxis. SCDs while Coumadin on hold if INR less than 2 RE GI bleed Full code Admission and Anticipated Discharge Date Admission Date: January 13, 2021 Subjective Doing okay this morning. However, does report that he is having worsening back pain that is chronic. Requesting for pain medications. Hemoglobin remains stable. INR at 2.1 from 8.1. Review of Systems Review of Systems: All systems reviewed & are unremarkable except as noted in HPI & below Physical Exam Physical Exam: General: A&Ox3 HENT: NCAT, MMM, EOMI Eyes: PERRLA Neck: Supple, normal range of motion CVS: normal rate and rhythm Resp: b/l creased breath sounds secondary to body habitus Abdomen: Soft, ND/NT, +BS Extremities: Chronic venous stasis skin changes Neuro: face symmetric, no focal deficit Skin: no rashes/lesions/errythema MSK: no joint swelling/erythema Results & Data Results & Data ([facility]) Vital Signs (Past 12 Hours) Vital Signs Temp Pulse Pulse Resp BP BP Pulse Ox 01/13/21 13:37 36.3 C L 70 20 117/67 94 01/13/21 13:09 64 18 93 01/13/21 11:41 36.4 C L 74 18 133/71 90 01/13/21 07:48 36.6 C 74 16 139/87 91 01/13/21 07:34 36.6 C 74 16 140/82 01/13/21 07:05 74 16 93 01/13/21 06:28 36.4 C L 72 20 132/88 91 01/13/21 06:21 75 01/13/21 05:59 36.6 C 74 20 141/83 H 93 01/13/21 05:45 36.6 C 74 20 128/86 93 01/13/21 05:33 36.4 C L 80 20 92 01/13/21 05:25 36.5 C 75 20 112/74 92 01/13/21 04:29 74 18 133/75 97 01/13/21 02:59 76 15 102/72 96
[2021-01-13] MEDS ORDERED: LIDOCAINE HCL 2% 2 ML VIAL/AMP(20MG/ML) INFIL ONE (14:03)
[2021-01-13] MEDS ORDERED: PROPOFOL IV EMULSION 10 MG/ML 20 ML VIAL IV ONE (14:03)
[2021-01-13] MEDS ORDERED: POTASSIUM CHLORIDE CRTAB 20 MEQ TABCR PO STA (14:10)
--- NOTE | 2021-01-13 14:25 | GI REPORT ---
Patient Name: Stanton Milner Procedure Date: 01/13/2021 1:35 PM Date of : 1970 Admit Type: Inpatient Age: 50 Gender: Male Attending MD: Byron Najera MD Procedure: Upper GI endoscopy Providers: Byron Najera MD Referring MD: Davide Velazquez Md Indications: Heme positive stool Medicines: Monitored Anesthesia Care Complications: No immediate complications. Estimated blood loss: None. Estimated Blood Loss: Estimated blood loss: none. Procedure: Pre-Anesthesia Assessment: - Prior Anticoagulants: The patient has taken no previous anticoagulant or antiplatelet agents. - ASA Grade Assessment: II - A patient with mild systemic disease. After obtaining informed consent, the endoscope was passed under direct vision. Throughout the procedure, the patient's blood pressure, pulse, and oxygen saturations were monitored continuously. The Endoscope was introduced through the mouth, and advanced to the second part of duodenum. The upper GI endoscopy was accomplished without difficulty. The patient tolerated the procedure well. Findings: LA Grade A (one or more mucosal breaks less than 5 mm, not extending between tops of 2 mucosal folds) esophagitis with no bleeding was found. Biopsies were taken with a cold forceps for histology. Estimated blood loss: none. The entire examined stomach was normal. The duodenal bulb and second portion of the duodenum were normal. Impression: - LA Grade A esophagitis. Biopsied. - Normal stomach. - Normal duodenal bulb and second portion of the duodenum. Recommendation: - [facility]. - Advance diet as tolerated today. - Await pathology results. -will need a colonoscopy as an outpatient in 4-6 weeks for further investigation. Byron Najera MD 01/13/2021 2:24:38 PM This report has been signed electronically. Note Initiated On: 01/13/2021 1:35 PM Number of Addenda: 0 I attest to the content of the Intraoperative Record and orders documented therein, exceptions below {[id number]}
--- NOTE | 2021-01-13 14:31 | Electrocardiogram Report ---
Test Reason : Blood Pressure : / mmHG Vent. Rate : 106 BPM Atrial Rate : 106 BPM P-R Int : 150 ms QRS Dur : 104 ms QT Int : 360 ms P-R-T Axes : 056 045 085 degrees QTc Int : 478 ms Sinus tachycardia RSR' or QR pattern in V1 suggests right ventricular conduction delay Abnormal ECG When compared with ECG of 15-NOV-2020 14:32, T wave inversion now evident in Anterolateral leads Confirmed by Stanton Porter ([id number]) on 01/13/2021 2:30:56 PM Referred By: REFERRED SELF Confirmed By:Stanton Porter
--- NOTE | 2021-01-13 15:10 | Anesthesiology Progress Note ---
Date of Service January 13, 2021 Anesthesia Post Procedure Vital Signs Vital Signs: Temp Pulse Pulse Resp BP BP Pulse Ox 01/13/21 14:55 66 18 110/64 92 01/13/21 14:40 68 18 122/67 92 01/13/21 14:25 73 16 102/59 L 95 01/13/21 13:37 36.3 C L 70 20 117/67 94 01/13/21 13:09 64 18 93 01/13/21 11:41 36.4 C L 74 18 133/71 90 01/13/21 07:48 36.6 C 74 16 139/87 91 01/13/21 07:34 36.6 C 74 16 140/82 01/13/21 07:05 74 16 93 01/13/21 06:28 36.4 C L 72 20 132/88 91 01/13/21 06:21 75 01/13/21 05:59 36.6 C 74 20 141/83 H 93 01/13/21 05:45 36.6 C 74 20 128/86 93 01/13/21 05:33 36.4 C L 80 20 92 01/13/21 05:25 36.5 C 75 20 112/74 92 01/13/21 04:29 74 18 133/75 97 01/13/21 02:59 76 15 102/72 96 01/13/21 01:37 78 20 137/74 97 01/13/21 00:00 87 89 19 97 01/12/21 23:08 104 H 22 144/95 H 94 01/12/21 21:44 102 H 18 163/81 H 96 01/12/21 21:33 97 H 18 95 01/12/21 20:21 91 01/12/21 20:12 36.8 C 106 H 22 141/92 H 91 Pain Intensity Generalized: Pain Intensity: 9 Transfer of Care Handoff Completed per policy Notes Mental Status: alert / awake / arousable Patient Amnestic to Procedure: Yes Nausea / Vomiting: adequately controlled Pain: adequately controlled Airway Patency, RR, SpO2: stable & adequate BP & HR: stable & adequate Hydration State: stable & adequate Anesthetic Complications: no major complications apparent
[2021-01-13 15:41] LABS: Hemoglobin 13.3 g/dL (14.0-18.0); Mean Corpuscular Hgb Conc 32.4 g/dL (32-36); Mean Corpuscular Volume 83.2 fL (80-100); Platelet Count 244 K/uL (130-400); RDW Coefficient of Variation 17.6 % (11.5-14.5); RDW Standard Deviation 53.5 fL (36.4-46.3); Red Blood Count 4.93 M/uL (4.7-6.1); White Blood Count 13.25 K/uL (4.8-10.8)
[2021-01-13] MEDS ORDERED: Nursing to Pharmacy Communication SCH ×2 (19:45)
[2021-01-13] MEDS ORDERED: INSULIN GLARGINE SOLOSTAR 100 UNITS/ML 3 ML PEN SC SCH (21:00)
[2021-01-13] MEDS: INSULIN GLARGINE SOLOSTAR 100 UNITS/ML 3 ML PEN SC SCH (21:50)
[2021-01-13] MEDS: ATORVASTATIN 40 MG TAB PO SCH (21:57)
[2021-01-13 22:34] LABS: Hematocrit (blood only) 39.8 % (42-52); Mean Corpuscular Hemoglobin 27.1 pg (25-34); Mean Corpuscular Hgb Conc 32.7 g/dL (32-36); Mean Corpuscular Volume 82.9 fL (80-100); Mean Platelet Volume 9.9 fL (7.4-10.4); Platelet Count 225 K/uL (130-400); RDW Coefficient of Variation 17.5 % (11.5-14.5); RDW Standard Deviation 52.5 fL (36.4-46.3); White Blood Count 14.22 K/uL (4.8-10.8)
[2021-01-14] MEDS: IPRATROPIUM BROMIDE NEB SOLN 0.02% 2.5 ML VIAL INH SCH ×4 (00:13→20:29)
[2021-01-14] MEDS: LEVALBUTEROL 1.25MG/0.5ML NEB INH SCH ×4 (00:13→20:29)
[2021-01-14] MEDS: LORazepam 0.5 MG TAB PO PRN ×3 (03:23→21:58)
[2021-01-14] MEDS: PANTOprazole 40 MG in DEXTROSE 5% 100 ML IV SCH ×2 (04:34→08:36)
[2021-01-14] MEDS: PIPERACILLIN/TAZOBACTAM 4.5 GM in DEXTROSE 5% 100 ML IV SCH ×3 (06:08→21:59)
[2021-01-14 06:45] LABS: Hemoglobin 13.7 g/dL (14.0-18.0); Mean Corpuscular Hgb Conc 32.6 g/dL (32-36); Mean Corpuscular Volume 82.8 fL (80-100); Mean Platelet Volume 10.1 fL (7.4-10.4); Platelet Count 249 K/uL (130-400); RDW Coefficient of Variation 18.1 % (11.5-14.5); RDW Standard Deviation 54.8 fL (36.4-46.3); Red Blood Count 5.07 M/uL (4.7-6.1); White Blood Count 14.79 K/uL (4.8-10.8)
[2021-01-14 06:52] LABS: INR 1.4 (0.9-1.1); Prothrombin Time 13.8 Seconds (9.0-12.0)
[2021-01-14 07:20] LABS: BUN Creatinine Ratio 14.4 (10-20); Calcium 9.1 mg/dl (8.5-10.1); Est GFR (African American) 101.3; Est GFR (Non-African American) 87.4; Potassium 4.2 mmol/L (3.5-5.1)
[2021-01-14] MEDS: GABAPENTIN 800 MG TAB PO SCH ×3 (08:22→20:13)
[2021-01-14] MEDS: METOPROLOL SUCC 25MG EXT REL TAB PO SCH ×2 (08:22→20:14)
[2021-01-14] MEDS: DOXYCYCLINE HYCLATE 100 MG CAP PO SCH ×2 (08:23→20:13)
[2021-01-14] MEDS: ADVANCED PROBIOTIC 1250 MG CAPSULE PO SCH ×2 (08:23→20:13)
[2021-01-14] MEDS: DOCUSATE SODIUM/SENNA 50/8.6MG TAB PO SCH ×2 (08:23→20:13)
[2021-01-14] MEDS: FINASTERIDE 5 MG TAB PO SCH (08:23)
[2021-01-14] MEDS: ISOSORBIDE MONO EXTENDED REL 30 MG TABCR PO SCH (08:24)
[2021-01-14] MEDS: TAMSULOSIN HCL 0.4 MG CAP PO SCH (08:24)
[2021-01-14] MEDS: predniSONE 20 MG TAB PO SCH (08:24)
[2021-01-14] MEDS: DULoxetine HCL 60 MG CAP PO SCH (08:25)
[2021-01-14] MEDS: FOLIC ACID 1 MG TAB PO SCH (08:25)
[2021-01-14] MEDS: FLUTICASONE PROPIONATE NA SPR 16 GM BTL SCH (08:25)
[2021-01-14] MEDS: NICOTINE 21 MG/24 HR TDSY TD SCH (08:26)
[2021-01-14] MEDS: POLYETHYLENE (MIRALAX) 17 GM PACK PO SCH (08:27)
[2021-01-14] MEDS: INSULIN ASPART 100 UNITS/ML 3 ML PEN SC SCH ×4 (08:28→20:18)
[2021-01-14] MEDS: buprenorphine HCL 8 MG SUBL SL SCH ×3 (08:34→20:13)
[2021-01-14] MEDS: PROMETHAZINE HCL 12.5 MG in SODIUM CHLORIDE 0.9% 50 ML IV PRN (09:38)
--- NOTE | 2021-01-14 10:07 | Gastroenterology Progress Note ---
Date of Service January 14, 2021 Assessment & Plan (1) RUQ pain: (2) UGIB (upper gastrointestinal bleed): 1. No source of bleeding identified on EGD yesterday. Outpatient colonoscopy to be arranged. 2. GB ultrasound and CT without evidence of gall stones or wall thickening. Patient states he cannot undergo a HIDA scan as he is unable to lay down long enough to have testing performed. Requests a surgical consult his RUQ pain and intermittent N/V. 3. Stop PPI ggt. Start Pantoprazole 40 mg PO BID. 4. Continue supportive care per primary team. Admission and Anticipated Discharge Date Admission Date: January 13, 2021 Subjective Patient is status post EGD by Dr. Najera which was unremarkable. No evidence of GIB. No explanation for patient's ongoing RUQ pain. States the pain is severe. 8/10 in intensity at present. + nausea but no vomiting. No diarrhea. Tolerating diet. Prior CT and ultrasound imaging reviewed. He reports desire to have surgical consultation for gall bladder removal. Continues PPI ggt. Review of Systems Constitutional: no fever and no chills Cardiovascular: no chest pain Gastrointestinal: + abdominal pain and + nausea; no vomiting Physical Exam Constitutional: + morbidly obese Respiratory: normal respiratory effort Auscultation: + wheezes Cardiovascular: Rate/Rhythm: regular rate and regular rhythm Gastrointestinal (Abdomen): Inspection/Auscultation: normal bowel sounds Percussion/Palpation: + abdomen tender (RUQ) and abdomen soft; no guarding and abdomen not rigid Results & Data Results & Data ([facility]) Vital Signs (Past 12 Hours) Vital Signs Temp Pulse Pulse Resp BP Pulse Ox 01/14/21 07:22 36.4 C L 69 20 117/72 96 01/14/21 07:14 88 20 94 01/14/21 03:11 36.4 C L 68 18 134/68 96 01/13/21 22:30 76 01/13/21 22:16 36.4 C L 71 20 146/67 H 91 Laboratory Results Abnormal lab results 01/13/21 01/13/21 01/13/21 Range/Units 11:23 11:51 11:51 WBC (4.8-10.8) K/uL Hgb 13.1 L (14.0-18.0) g/dL Hct 39.1 L (42-52) % RDW Std Deviation (36.4-46.3) fL RDW Coeff of Megan (11.5-14.5) % PT 17.0 H (9.0-12.0) Seconds INR 1.8 H (0.9-1.1) Glucose (70-99) mg/dl POC Glucose 158 H (70-99) mg/dl 01/13/21 01/13/21 01/13/21 Range/Units 15:25 16:27 20:27 WBC 13.25 H (4.8-10.8) K/uL Hgb 13.3 L (14.0-18.0) g/dL Hct 41.0 L (42-52) % RDW Std Deviation 53.5 H (36.4-46.3) fL RDW Coeff of Megan 17.6 H (11.5-14.5) % PT (9.0-12.0) Seconds INR (0.9-1.1) Glucose (70-99) mg/dl POC Glucose 225 H 298 H (70-99) mg/dl 01/13/21 01/14/21 01/14/21 Range/Units 22:23 06:24 06:24 WBC 14.22 H (4.8-10.8) K/uL Hgb 13.0 L (14.0-18.0) g/dL Hct 39.8 L (42-52) % RDW Std Deviation 52.5 H (36.4-46.3) fL RDW Coeff of Megan 17.5 H (11.5-14.5) % PT 13.8 H (9.0-12.0) Seconds INR 1.4 H (0.9-1.1) Glucose 255 H (70-99) mg/dl POC Glucose (70-99) mg/dl 01/14/21 01/14/21 Range/Units 06:24 07:25 WBC 14.79 H (4.8-10.8) K/uL Hgb 13.7 L (14.0-18.0) g/dL Hct (42-52) % RDW Std Deviation 54.8 H (36.4-46.3) fL RDW Coeff of Megan 18.1 H (11.5-14.5) % PT (9.0-12.0) Seconds INR (0.9-1.1) Glucose (70-99) mg/dl POC Glucose 236 H (70-99) mg/dl PG Care Time/CCT Total # of Minutes Spent Total Time Spent with Patient: Total time spent is greater than 50% in coordination of care (as documented) at patient's floor/unit and/or counseling patient: Coding Level of Care Code 22838 Subseq Hosp Care Lvl 3 Diagnoses RUQ pain R10.11 UGIB (upper gastrointestinal bleed) K92.2
[2021-01-14] MEDS: CYCLOBENZAPRINE HCL 5 MG TAB PO SCH ×2 (10:45→20:13)
[2021-01-14] MEDS ORDERED: WARFARIN SOD 5 MG TAB PO ONE (12:38)
--- NOTE | 2021-01-14 12:40 | Hospitalist Progress Note ---
Date of Service January 14, 2021 Assessment & Plan (1) UGIB (upper gastrointestinal bleed): - Heme positive melanotic stool noted rectal exam done at the ER. - History gastritis, hiatal hernia from 2018 EGD - Coumadin coagulopathy, history of recurrent PE - Recent steroid Rx for bronchitis possibly contributing to gastric irritation - Severe Sepsis on admission: Possibly recurrent UTI in the setting of chronic indwelling Lloyd catheter - Complicated bronchitis/COPD exacerbation, recent outpatient course of doxycycline initiated by PCP - Hyperglycemic on admission -Hypokalemia - resolved History of diabetes mellitus type 2 History of traumatic subdural hematoma/subarachnoid hemorrhage in the setting of Coumadin coagulopathy (10/2019 [facility] confinement) History of chronic diastolic heart failure (EF 55 to 60%, TTE 2020 History of coronary artery disease History of hypertension History of hyperlipidemia on statin History of Chronic pain on Subutex, history of drug-seeking behavior as per records Ongoing tobacco abuse Hemoblogin reamains stable. Appreciate gastroenterology input. S/P EGD with gastritis. Discontinue PPI GGT, start patient on pantoprazole 40 twice daily. Will need outpatient colonoscopy. Continue with diabetic diet. Restart coumadin today; will order 5 mg. Monitor daily INR. (Did receive vitamin K and FFP on admission for INR reversal.) CS, Zosyn for complicated UTI (however cultures were not sent), continue Doxycycline for bronchitis Lactic acidosis is resolved. Holding [employer] diuretics for now. Low-dose prednisone for 1 more days for COPD exacerbation, nebs RTC Facilitate home beta-nasim Rx basal insulin adjusted for n.p.o. status, ISS BG goal 110-140, carb count coverage when patient eating Patient may benefit from pharmacy glycemic control consultation, possible candidate for home insulin on discharge DM education Judicious narcotic use given drug-seeking behavior history Nicotine patch DVT prophylaxis. Full code Admission and Anticipated Discharge Date Admission Date: January 13, 2021 Subjective Reports he does not feel any better. States he continues to have epigastric discomfort. Reports he is feeling short of breath along with coughing. Requesting for pain medication; states he will be okay with anything oxycodone/tramadol/Toradol. Nonspecific pain symptoms. Review of Systems Review of Systems: All systems reviewed & are unremarkable except as noted in HPI & below Physical Exam Physical Exam: General: A&Ox3 HENT: NCAT, MMM, EOMI Eyes: PERRLA Neck: Supple, normal range of motion CVS: normal rate and rhythm Resp: b/l creased breath sounds secondary to body habitus Abdomen: Soft, nondistended and nontedner Extremities: Chronic venous stasis skin changes Neuro: face symmetric, no focal deficit Skin: no rashes/lesions/errythema MSK: no joint swelling/erythema Results & Data Results & Data ([facility]) Vital Signs (Past 12 Hours) Vital Signs Temp Pulse Pulse Resp BP Pulse Ox 01/14/21 11:44 36.5 C 69 20 113/67 97 01/14/21 11:30 68 01/14/21 07:22 36.4 C L 69 20 117/72 96 01/14/21 07:14 88 20 94 01/14/21 03:11 36.4 C L 68 18 134/68 96
--- NOTE | 2021-01-14 13:56 | XRay Report ---
RIGHT FOOT 3 VIEWS HISTORY: right foot pain COMPARISON: Right foot 04/15/2020. FINDINGS: No change in the old nonunited midshaft fracture at the third metatarsal with surrounding m etallic densities. This results in shortening of the third digit. No acute fractures identified. The Lisfranc joint is intact. No erosive changes. Soft tissues are unremarkable. Tiny posterior calcaneal spur. IMPRESSION: 1. No acute fractures identified within the right foot. 2. No change in the old nonunited midshaft fracture at the third metatarsal with surrounding metallic densities. ACT 112: Negative or not required by law. Electronically signed by: Vidal Keller M.D. 01/14/2021 1:54 PM
[2021-01-14] MEDS ORDERED: ACETAMINOPHEN 1,000 MG/100 ML VIAL IV STA (16:12)
[2021-01-14 16:18] LABS: Hematocrit (blood only) 39.4 % (42-52); Hemoglobin 13.1 g/dL (14.0-18.0); Mean Corpuscular Hemoglobin 27.6 pg (25-34); Mean Corpuscular Hgb Conc 33.2 g/dL (32-36); Mean Corpuscular Volume 83.1 fL (80-100); Mean Platelet Volume 10.2 fL (7.4-10.4); Platelet Count 234 K/uL (130-400); RDW Coefficient of Variation 17.9 % (11.5-14.5); Red Blood Count 4.74 M/uL (4.7-6.1); White Blood Count 14.69 K/uL (4.8-10.8)
[2021-01-14] MEDS: ATORVASTATIN 40 MG TAB PO SCH (20:12)
[2021-01-14] MEDS: PANTOprazole 40 MG TAB PO SCH (20:14)
[2021-01-14] MEDS: INSULIN GLARGINE SOLOSTAR 100 UNITS/ML 3 ML PEN SC SCH (20:19)
[2021-01-15] MEDS: IPRATROPIUM BROMIDE NEB SOLN 0.02% 2.5 ML VIAL INH SCH ×4 (00:12→19:07)
[2021-01-15] MEDS: LEVALBUTEROL 1.25MG/0.5ML NEB INH SCH ×4 (00:12→19:07)
[2021-01-15] MEDS: PIPERACILLIN/TAZOBACTAM 4.5 GM in DEXTROSE 5% 100 ML IV SCH ×3 (06:09→21:23)
[2021-01-15] MEDS: METOPROLOL SUCC 25MG EXT REL TAB PO SCH ×2 (08:07→20:53)
[2021-01-15] MEDS: PANTOprazole 40 MG TAB PO SCH ×2 (08:07→20:54)
[2021-01-15] MEDS: ADVANCED PROBIOTIC 1250 MG CAPSULE PO SCH ×2 (08:08→20:53)
[2021-01-15] MEDS: CYCLOBENZAPRINE HCL 5 MG TAB PO SCH ×2 (08:09→21:21)
[2021-01-15] MEDS: DOXYCYCLINE HYCLATE 100 MG CAP PO SCH ×2 (08:09→20:53)
[2021-01-15] MEDS: GABAPENTIN 800 MG TAB PO SCH ×3 (08:09→20:53)
[2021-01-15] MEDS: ISOSORBIDE MONO EXTENDED REL 30 MG TABCR PO SCH (08:10)
[2021-01-15] MEDS: DOCUSATE SODIUM/SENNA 50/8.6MG TAB PO SCH ×2 (08:10→20:52)
[2021-01-15] MEDS: FINASTERIDE 5 MG TAB PO SCH (08:10)
[2021-01-15] MEDS: FOLIC ACID 1 MG TAB PO SCH (08:10)
[2021-01-15] MEDS: TAMSULOSIN HCL 0.4 MG CAP PO SCH (08:10)
[2021-01-15] MEDS: NICOTINE 21 MG/24 HR TDSY TD SCH (08:11)
[2021-01-15] MEDS: FLUTICASONE PROPIONATE NA SPR 16 GM BTL SCH (08:11)
[2021-01-15] MEDS: DULoxetine HCL 60 MG CAP PO SCH (08:11)
[2021-01-15] MEDS: POLYETHYLENE (MIRALAX) 17 GM PACK PO SCH (08:12)
[2021-01-15] MEDS: LORazepam 0.5 MG TAB PO PRN ×2 (08:18→16:37)
[2021-01-15] MEDS: buprenorphine HCL 8 MG SUBL SL SCH ×3 (08:18→21:21)
[2021-01-15] MEDS: INSULIN ASPART 100 UNITS/ML 3 ML PEN SC SCH ×4 (08:20→20:54)
[2021-01-15 08:33] LABS: INR 1.3 (0.9-1.1); Prothrombin Time 13.1 Seconds (9.0-12.0)
[2021-01-15] MEDS: PROMETHAZINE HCL 12.5 MG in SODIUM CHLORIDE 0.9% 50 ML IV PRN ×2 (10:27→19:32)
--- NOTE | 2021-01-15 14:48 | Hospitalist Progress Note ---
Date of Service January 15, 2021 Assessment & Plan (1) UGIB (upper gastrointestinal bleed): No bowel movement since admission, H&H has been stable at 13 Tolerating diet - Heme positive melanotic stool noted rectal exam done at the ER. . Appreciate gastroenterology input. S/P EGD with gastritis. on pantoprazole 40 twice daily. Will need outpatient colonoscopy. Continue with diabetic diet. Coumadin resumed Coughing spell / possible bronchitis Gets in severe coughing spasm sleep during conversation, Reports that his coughing spell is so bad that he gets into confusion/seizure- like episode On doxycycline for bronchitis Ordered for Robitussin-AC as needed for cough Pulmonology follow-up Type 2 diabetes Appreciate input from pharmacy for glycemic management Patient will be discharged on Lantus, Scripts for Lantus sent to pharmacy Narcotic abuse Patient has long/chronic history of narcotic drug-seeking behavior history Narcotic pain meds contract was done with presence of Dr. Carter. Later during the day, he continues to request for pain medication, patient has not received any narcotic pain medication this admission. Initially ordered as needed p.o. oxycodone, later updated by pharmacy, patient's been under narcotic contract at [facility], In the past several admissions, no narcotics medications were ordered, Patient kept on calling to pharmacy, while I was on the phone with the pharmacist I called and spoke with patient updated him that is as narcotic contract, oxycodone order is discontinued. Patient got very upset, and ask to speak with Dr. Carter for pain management, Later he wanted to settle down with Tylenol, IV Toradol, request at home to be IV as p.o. upsets his stomach. DVT prophylaxis. Coumadin resumed Full code Disposition: Discharge home in next 1 to 2 days Admission and Anticipated Discharge Date Admission Date: January 13, 2021 Subjective Patient did not had any bowel movements in a patient, no bright red blood per rectum: Tolerating diet Continues to complain of right upper quadrant pain, requesting a surgical consult wants his gallbladder to be removed. Patient is updated, CT scan does not show any gallbladder disease Surgery will not be done when there is no pathology. Patient still insists on seeing a surgeon Having coughing spell He said he has been having this episode for several weeks now, his coughing spells are so bad, he sometimes goes into episode of confusion or seizure Patient did had 23 coughing spell during my conversation, Also complains of right foot pain, states that he may have toppled over up, and broke prosthesis that Dr. Gilmore fixed in the past Patient is updated about right foot x-ray: No new fracture No change in the old nonunited midshaft fracture at the third metatarsal with surrounding metallic densities. Wants to talk with Dr. Gilmore, Review of Systems Review of Systems: All systems reviewed & are unremarkable except as noted in Subjective Results & Data Results & Data ([facility]) Vital Signs (Past 12 Hours) Vital Signs Temp Pulse Pulse Resp BP BP Pulse Ox 01/15/21 12:24 96 H 18 97 01/15/21 11:29 36.4 C L 70 16 121/68 95 01/15/21 07:35 85 20 97 01/15/21 07:32 36.6 C 64 18 131/69 94 01/15/21 07:30 65 01/15/21 04:09 36.5 C 63 18 117/72 99
[2021-01-15] MEDS: WARFARIN SOD 5 MG TAB PO SCH (16:37)
[2021-01-15] MEDS ORDERED: guaiFENesin/CODEINE 100MG/10MG 5ML UDC PO STA (17:30)
[2021-01-15] MEDS ORDERED: oxyCODONE HCL IR 5 MG TAB (IMMEDIATE RELEASE) PO PRN (17:32)
[2021-01-15] MEDS ORDERED: ACETAMINOPHEN 500 MG TAB PO PRN (18:09)
[2021-01-15] MEDS: KETOROLAC 30 MG/ML VIAL IV PRN (18:20)
[2021-01-15] MEDS: ATORVASTATIN 40 MG TAB PO SCH (20:51)
[2021-01-15] MEDS: INSULIN GLARGINE SOLOSTAR 100 UNITS/ML 3 ML PEN SC SCH (20:54)
[2021-01-16] MEDS: LORazepam 0.5 MG TAB PO PRN ×3 (00:42→16:44)
[2021-01-16] MEDS: LEVALBUTEROL 1.25MG/0.5ML NEB INH SCH ×4 (01:13→18:58)
[2021-01-16] MEDS: IPRATROPIUM BROMIDE NEB SOLN 0.02% 2.5 ML VIAL INH SCH ×4 (01:13→18:58)
[2021-01-16] MEDS: PIPERACILLIN/TAZOBACTAM 4.5 GM in DEXTROSE 5% 100 ML IV SCH ×2 (05:59→13:14)
[2021-01-16] MEDS: ADVANCED PROBIOTIC 1250 MG CAPSULE PO SCH ×2 (08:30→20:36)
[2021-01-16] MEDS: GABAPENTIN 800 MG TAB PO SCH ×3 (08:30→20:35)
[2021-01-16] MEDS: PANTOprazole 40 MG TAB PO SCH ×2 (08:30→20:37)
[2021-01-16] MEDS: CYCLOBENZAPRINE HCL 5 MG TAB PO SCH ×2 (08:30→20:32)
[2021-01-16] MEDS: DOXYCYCLINE HYCLATE 100 MG CAP PO SCH ×2 (08:30→20:34)
[2021-01-16] MEDS: METOPROLOL SUCC 25MG EXT REL TAB PO SCH ×2 (08:31→20:36)
[2021-01-16] MEDS: FOLIC ACID 1 MG TAB PO SCH (08:31)
[2021-01-16] MEDS: FINASTERIDE 5 MG TAB PO SCH (08:31)
[2021-01-16] MEDS: ISOSORBIDE MONO EXTENDED REL 30 MG TABCR PO SCH (08:31)
[2021-01-16] MEDS: TAMSULOSIN HCL 0.4 MG CAP PO SCH (08:32)
[2021-01-16] MEDS: DULoxetine HCL 60 MG CAP PO SCH (08:32)
[2021-01-16] MEDS: POLYETHYLENE (MIRALAX) 17 GM PACK PO SCH (08:32)
[2021-01-16] MEDS: SENNA 8.6 MG TAB PO SCH (08:32)
[2021-01-16] MEDS: NICOTINE 21 MG/24 HR TDSY TD SCH (08:33)
[2021-01-16] MEDS: FLUTICASONE PROPIONATE NA SPR 16 GM BTL SCH ×2 (08:33→18:20)
[2021-01-16] MEDS: DOCUSATE SODIUM/SENNA 50/8.6MG TAB PO SCH ×2 (08:35→20:39)
[2021-01-16] MEDS: DOCUSATE SODIUM 100 MG CAP PO SCH ×2 (08:41→20:33)
[2021-01-16] MEDS: buprenorphine HCL 8 MG SUBL SL SCH ×3 (08:41→20:51)
[2021-01-16] MEDS: guaiFENesin/CODEINE 100MG/10MG 5ML UDC PO PRN ×3 (08:41→20:55)
[2021-01-16] MEDS: KETOROLAC 30 MG/ML VIAL IV PRN ×2 (08:43→16:45)
[2021-01-16] MEDS: INSULIN ASPART 100 UNITS/ML 3 ML PEN SC SCH ×4 (08:47→20:44)
--- NOTE | 2021-01-16 08:51 | Hospitalist Progress Note ---
Date of Service January 16, 2021 Assessment & Plan (1) UGIB (upper gastrointestinal bleed): Resolved No bowel movement since admission, H&H has been stable at 13 Tolerating diet - Heme positive melanotic stool noted rectal exam done at the ER. . Appreciate gastroenterology input. S/P EGD with gastritis. on pantoprazole 40 twice daily. Will need outpatient colonoscopy. Continue with heart healthy diabetic diet-alerting well Coumadin resumed Coughing spell / possible bronchitis Gets in severe coughing spasm sleep during conversation, Reports that his coughing spell is so bad that he gets into confusion/seizure- like episode On doxycycline for bronchitis Ordered for Robitussin-AC as needed for cough-patient some improvement up symptoms Pulmonology consulted, Type 2 diabetes Appreciate input from pharmacy for glycemic management Patient will be discharged on Lantus, Scripts for Lantus sent to pharmacy Narcotic abuse 01/16/21: Narcotic pain medication will be prescribed as per current [facility] policy/discussed with Dr. Carter Patient is updated, Okay with as needed Tylenol, and Toradol Plan to discharge home tomorrow 01/15/2021 Patient has long/chronic history of narcotic drug-seeking behavior history Narcotic pain meds contract was done with presence of Dr. Carter. Later during the day, he continues to request for pain medication, patient has not received any narcotic pain medication this admission. Initially ordered as needed p.o. oxycodone, later updated by pharmacy, patient's been under narcotic contract at [facility], In the past several admissions, no narcotics medications were ordered, Patient kept on calling to pharmacy, while I was on the phone with the pharmacist I called and spoke with patient updated him that is as narcotic contract, oxycodone order is discontinued. Patient got very upset, and ask to speak with Dr. Carter for pain management, Later he wanted to settle down with Tylenol, IV Toradol, request at home to be IV as p.o. upsets his stomach. IV Tylenol is not available for n.p.o. status, Patient is updated, on as needed p.o. Tylenol DVT prophylaxis. Coumadin resumed Full code Disposition: Discharge home tomorrow Admission and Anticipated Discharge Date Admission Date: January 13, 2021 Subjective Date of Service: January 16, 2021 Reports of uneventful night, continues to have coughing spell, improved after starting on cough syrup. No fever or chills, No bowel movement Has chronic back pain, abdominal pain updated patient regarding no narcotic prescription policy for him at [facility] as per prior narcotic med contract Getting as needed Tylenol, and Toradol. Asked to see orthopedics for his chronic right foot pain Discussed regarding discharge plan, patient is comfortable to be discharged home tomorrow Review of Systems Respiratory: + cough Physical Exam Physical Exam: Physical exam: General: Morbid obesity/no acute distress, alert awake oriented x3 HEENT: PERRLA, EOMI, Heart: Regular S1-S2, Lungs: Managed breath sound, no audible wheeze or rales Abdomen: Soft nontender, no organomegaly Extremity: No cyanosis, no rash, chronic pain on right foot no obvious deformity Neuro: No focal neurological deficit normal speech, normal visual field, Motor strength : normal both upper and lower extremity, sensation intact Psych: Alert awake oriented x3, normal affect Results & Data Results & Data ([facility]) Vital Signs (Past 12 Hours) Vital Signs Temp Pulse Pulse Resp BP Pulse Ox 01/16/21 07:55 36.5 C 65 18 102/69 98 01/16/21 07:35 67 18 97 01/16/21 04:25 36.6 C 64 18 100/62 97 01/16/21 00:45 68 01/15/21 23:31 36.7 C 71 18 121/65 93
[2021-01-16] MEDS: FUROSEMIDE 40 MG TAB PO SCH ×2 (09:26→20:35)
[2021-01-16 09:29] LABS: INR 1.2 (0.9-1.1); Prothrombin Time 12.4 Seconds (9.0-12.0)
[2021-01-16] MEDS: PROMETHAZINE HCL 12.5 MG in SODIUM CHLORIDE 0.9% 50 ML IV PRN ×2 (10:48→20:54)
[2021-01-16] MEDS: WARFARIN SOD 5 MG TAB PO SCH (16:36)
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
[2021-01-16] MEDS: FLUTICASONE/VILANTEROL 100/25MCG 14 PUFFS/INHALER INH SCH (18:27)
[2021-01-16] MEDS: ATORVASTATIN 40 MG TAB PO SCH (20:32)
[2021-01-16] MEDS: INSULIN GLARGINE SOLOSTAR 100 UNITS/ML 3 ML PEN SC SCH (20:50)
[2021-01-17] MEDS: KETOROLAC 30 MG/ML VIAL IV PRN (01:20)
[2021-01-17] MEDS: LORazepam 0.5 MG TAB PO PRN (01:20)
[2021-01-17] MEDS: LEVALBUTEROL 1.25MG/0.5ML NEB INH SCH ×2 (02:14→07:20)
[2021-01-17] MEDS: IPRATROPIUM BROMIDE NEB SOLN 0.02% 2.5 ML VIAL INH SCH ×2 (02:16→07:20)
[2021-01-17] MEDS: guaiFENesin/CODEINE 100MG/10MG 5ML UDC PO PRN (03:00)
[2021-01-17 07:25] LABS: INR 1.1 (0.9-1.1); Prothrombin Time 11.5 Seconds (9.0-12.0)
[2021-01-17] MEDS ORDERED: WARFARIN SOD 10 MG TAB PO ONE (07:43)
[2021-01-17] MEDS ORDERED: ENOXAPARIN 150 MG/ML SYR SC SCH (08:00)
[2021-01-17] MEDS: PANTOprazole 40 MG TAB PO SCH (08:01)
[2021-01-17] MEDS: ADVANCED PROBIOTIC 1250 MG CAPSULE PO SCH (08:01)
[2021-01-17] MEDS: METOPROLOL SUCC 25MG EXT REL TAB PO SCH (08:01)
[2021-01-17] MEDS: GABAPENTIN 800 MG TAB PO SCH (08:01)
[2021-01-17] MEDS: FUROSEMIDE 40 MG TAB PO SCH (08:02)
[2021-01-17] MEDS: FOLIC ACID 1 MG TAB PO SCH (08:02)
[2021-01-17] MEDS: DOCUSATE SODIUM 100 MG CAP PO SCH (08:02)
[2021-01-17] MEDS: CYCLOBENZAPRINE HCL 5 MG TAB PO SCH (08:02)
[2021-01-17] MEDS: SENNA 8.6 MG TAB PO SCH ×2 (08:02→08:07)
[2021-01-17] MEDS: DOXYCYCLINE HYCLATE 100 MG CAP PO SCH (08:02)
[2021-01-17] MEDS: DULoxetine HCL 60 MG CAP PO SCH (08:03)
[2021-01-17] MEDS: TAMSULOSIN HCL 0.4 MG CAP PO SCH (08:03)
[2021-01-17] MEDS: FINASTERIDE 5 MG TAB PO SCH (08:03)
[2021-01-17] MEDS: POLYETHYLENE (MIRALAX) 17 GM PACK PO SCH (08:03)
[2021-01-17] MEDS: ISOSORBIDE MONO EXTENDED REL 30 MG TABCR PO SCH (08:04)
[2021-01-17] MEDS: NICOTINE 21 MG/24 HR TDSY TD SCH (08:04)
[2021-01-17] MEDS: FLUTICASONE PROPIONATE NA SPR 16 GM BTL SCH ×2 (08:08→08:24)
[2021-01-17] MEDS: INSULIN ASPART 100 UNITS/ML 3 ML PEN SC SCH (08:09)
[2021-01-17] MEDS: buprenorphine HCL 8 MG SUBL SL SCH (08:22)
[2021-01-17] MEDS: DOCUSATE SODIUM/SENNA 50/8.6MG TAB PO SCH (08:23)
[2021-01-17] MEDS: FLUTICASONE/VILANTEROL 100/25MCG 14 PUFFS/INHALER INH SCH (08:25)
[2021-01-17] MEDS ORDERED: oxyCODONE HCL IR 5 MG TAB (IMMEDIATE RELEASE) PO STA (09:27)
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
--- NOTE | 2021-01-29 09:09 | Coding Query ---
SEPSIS To promote full compliance with coding requirements relating to patient care, physician participation is requested in all cases of fabricator special items uncertainty. Please assist us with the question(s) below: In responding to this query, please exercise your independent professional judgement. The fact that a question is asked does not imply that any particular answer is desired or expected. We appreciate your clarification on this issue. Throughout the medical record, you have clearly documented a localized infection and your patient has clinical evidence of a generalized sepsis or severe sepsis. The term urosepsis is a nonspecific entity and is coded as an UTI. If the patient has sepsis, severe sepsis, from an urinary source or some other source, please clarify in your response below. The medical record reflects the following clinical findings: Patient admitted with melena,SOB,UTI complex. Progress note 01/13 documented Sepsis. Please document the condition that was treated during this IP stay. Thank you , MARTHA Hernandez [facility] ____ ( )Bacteremia (Nonspecific laboratory finding of bacteria in the blood) Specify Organism ( ) Present on Admission ( x) Not present on admission ( ) Unable to clinically determine ( ) Septicemia (Systemic disease associated with the presence of pathogenic microorganisms in the blood): Specify Organism ( ) Present on Admission (x ) Not present on admission ( ) Unable to clinically determine ( ) Sepsis Specify Organism Specify Associated Condition/Diagnosis ( ) Present on Admission ( x) Not present on admission ( ) Unable to clinically determine ( ) Severe Sepsis (Sepsis associated with acute organ dysfunction) Specify Organism Specify Associated Condition/Diagnosis ( ) Present on Admission (x ) Not present on admission ( ) Unable to clinically determine ( ) Septic Shock (Severe sepsis with acute circulatory failure, unexplained by other causes) ( ) Present on Admission (x ) Not present on admission ( ) Unable to clinically determine ( ) Other, patient has: Did not had Sepsis on admission , no UTI MTDD
--- NOTE | 2021-01-29 09:12 | Coding Query ---
CODING QUERY To promote full compliance with coding requirements relating to patient care, provider participation is requested in all cases of mail caller uncertainty. Please assist us with the question(s) below: Coding Question(s): Please document, if known or suspected, the etiology of the patient's UTI. Thank you. Harry Coronado [facility] [facility] Physician's Response(s): pt did not had UTI in last admission Roxy Bradshaw MD Principal Diagnosis: "that condition established after study, to be chiefly responsible for occasioning the admission of the patient to the hospital for care." Co-Existing Principal Diagnosis: "when two or more diagnoses equally meet the criteria for principal diagnosis as determined by the circumstances of admission, diagnostic work up, and/or therapy provided, and the Alphabetic Index, Tabular List, or another coding guideline does not provide sequencing direction, any one of the diagnoses may be sequenced first." "When the physician has documented what appears to be a current diagnosis in the body of the record, but has not included the diagnosis in the final diagnostic statement, the physician should be asked whether the diagnosis should be added." (Source Coding Clinic 2 QTR90. p3-4) [place]
== END 2021-01-17 09:49 | disposition home health service (06) | DRG 377 ==
LOC: ED 19:45 → SUATTDRO 01-13 01:00 → 2W 01-13 01:00

== ENCOUNTER 2021-02-28 09:16 | Inpatient (IN) ==
[2021-02-28] MEDS ORDERED: ALBUT/IPRATROP 3MG/0.5MG NEB 3 ML VIAL NEB STA (09:52)
[2021-02-28] MEDS ORDERED: FUROSEMIDE 40 MG/4 ML VIAL IV STA (09:52)
[2021-02-28] MEDS ORDERED: MoRPHine SULFATE 10 MG/ML CARP/VIAL IV STA (09:52)
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
[2021-02-28] MEDS ORDERED: MoRPHine SULFATE 4 MG/ML 1 ML CARP\\VIAL ONE (10:24)
[2021-02-28] MEDS ORDERED: MoRPHine SULFATE 2 MG/ML CARP ONE (10:24)
[2021-02-28 10:30] LABS: Basophils # (auto) 0.07 K/uL (0-0.2); Basophils % (auto) 0.5 %; Eosinophils # (auto) 0.79 K/uL (0-0.5); Eosinophils % (auto) 5.7 %; Hematocrit (blood only) 43.9 % (42-52); Immature Granulocytes # (auto) 0.04 K/uL (0.00-0.02); Immature Granulocytes % (auto) 0.3 %; Lymphocytes # (auto) 3.49 K/uL (1.2-3.4); Lymphocytes % (auto) 25.3 %; Mean Corpuscular Hemoglobin 27.2 pg (25-34); Mean Corpuscular Hgb Conc 31.9 g/dL (32-36); Mean Corpuscular Volume 85.2 fL (80-100); Mean Platelet Volume 10.3 fL (7.4-10.4); Monocytes # (auto) 1.09 K/uL (0.11-0.59); Monocytes % (auto) 7.9 %; Neutrophils # (auto) 8.34 K/uL (1.4-6.5); Neutrophils % (auto) 60.3 %; Platelet Count 232 K/uL (130-400); RDW Coefficient of Variation 17.7 % (11.5-14.5); RDW Standard Deviation 54.9 fL (36.4-46.3); Red Blood Count 5.15 M/uL (4.7-6.1); White Blood Count 13.82 K/uL (4.8-10.8)
--- NOTE | 2021-02-28 10:37 | XRay Report ---
XR chest 1V portable CLINICAL HISTORY: weakness COMPARISON STUDY: 01/23/2021 FINDINGS: There is borderline cardiac enlargement. There is elevation of interstitium. While this in part may be secondary to the patient's large body habitus, and an element of pulmonary vascular conge stion must be considered. There is blunting of both lateral costophrenic angles.[There is no focal pu lmonary consolidation. There is an old left clavicular deformity. IMPRESSION: 1. Technically limited study secondary to morbid obesity 2. Mild elevation of the interstitium, mild pulmonary vascular congestion versus interstitial promine nce due to body habitus 3. Blunting of the lateral costophrenic angles 4. No evidence of focal pulmonary consolidation ACT 112: Negative or not required by law. Electronically signed by: Luis Castro M.D. 02/28/2021 10:36 AM
[2021-02-28 10:47] LABS: Alanine Aminotransferase 30 U/L (12-78); Albumin Level 3.4 gm/dl (3.4-5.0); Aspartate Aminotransferase 19 U/L (15-37); BUN Creatinine Ratio 11.7 (10-20); Blood Urea Nitrogen 12 mg/dl (7-18); Calcium 9.3 mg/dl (8.5-10.1); Carbon Dioxide 26 mmol/L (21-32); Chloride 106 mmol/L (98-107); Creatinine Clr Calc Pharmacy 155.6 ml/min; Est GFR (African American) 100.1 ml/min; Est GFR (Non-African American) 86.3 ml/min; Glucose 140 mg/dl (70-99); Magnesium 2.1 mg/dl (1.8-2.4); Potassium 4.1 mmol/L (3.5-5.1); Sodium 138 mmol/L (136-145)
[2021-02-28 10:49] LABS: Partial Thromboplastin Ratio 3.8; Prothrombin Time > 90.0 Seconds (9.0-12.0)
--- NOTE | 2021-02-28 10:50 | CT Scan Report ---
CT head/brain wo con CLINICAL HISTORY: 50 years-old Male with fall, coumadin. Acute head injury status post fall TECHNIQUE: Multiple axial CT images of the head were obtained without contrast. A dose lowering tech nique was utilized adhering to the principles of ALARA. CT DOSE: 916.38 mGy.cm COMPARISON: Head CT 01/13/2021 FINDINGS: Motion degraded exam. No acute intracranial hemorrhage, midline shift, intracranial mass, hydrocephal us, territorial ischemia or abnormal extra-axial collection. The calvarium is intact. Trace left mastoid effusion. Right mastoid air cells are clear. Moderate to severe mucoperiosteal thickening of the right maxillary sinus with moderate mucosal thickening of th e right ethmoid air cells. Unremarkable soft tissues and orbits. IMPRESSION: No acute intracranial abnormality. ACT 112: Negative or not required by law. The above report was generated using voice recognition software. It may contain grammatical, syntax o r spelling errors. Electronically signed by: Shelton Apodaca M.D. 02/28/2021 10:48 AM
[2021-02-28 10:54] LABS: INR > 10.7 (0.9-1.1); Partial Thromboplastin Time 101.2 Seconds (21.0-31.0)
[2021-02-28 10:57] LABS: Albumin Globulin Ratio 0.9 (0.9-2); Alkaline Phosphatase 136 U/L (45-117); Bilirubin,Total 0.5 mg/dl (0.2-1); Globulin 3.9 gm/dl (2.5-4.0); Thyroid Stimulating Hormone 0.819 uIu/ml (0.300-4.500); Total Protein 7.3 gm/dl (6.4-8.2); Troponin I < 0.015 ng/ml (0-0.045)
[2021-02-28] MEDS ORDERED: PHYTONADIONE 10 MG in SODIUM CHLORIDE 0.9% 50 ML IV ONE (10:59)
[2021-02-28 11:06] LABS: Appearance Urine Turbid (Clear); Bacteria Urine Automated Negative (Negative); Bilirubin Urine Negative (Negative); Blood Urine 3+ (Negative); Color Urine Orange; Glucose Urine UA Negative (Negative); Ketones Urine Negative (Negative); Leukocyte Esterase Urine 2+ (Negative); Nitrite Urine Negative (Negative); Protein Urine 2+ (Negative); Specific Gravity Urine 1.028 (1.000-1.030); Urobilinogen Urine Negative (Negative); WBC Urine Automated >30 /hpf (0-5); pH Urine 5.5 (4.5-7.5)
[2021-02-28 11:18] LABS: Calcium Oxalate Crystals Urine Present (None Prsent); RBC Urine Automated >30 /hpf (0-4)
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
[2021-02-28] MEDS ORDERED: ACETAMINOPHEN 500 MG TAB PO PRN (13:26)
[2021-02-28] MEDS ORDERED: ONDANSETRON INJ 2 MG/ML 2 ML VIAL IV PRN (13:26)
[2021-02-28] MEDS ORDERED: NYSTATIN POWDER 15GM BTL EXT PRN (13:34)
[2021-02-28] MEDS ORDERED: SENNA 8.6 MG TAB PO PRN (13:34)
[2021-02-28] MEDS ORDERED: NITROGLYCERIN SL 0.4 MG/TAB TAB SL PRN (13:34)
[2021-02-28] MEDS ORDERED: ALBUTEROL HFA 8 GM INHALER INH PRN (13:34)
[2021-02-28] MEDS ORDERED: GLUCOSE 10 TABS/TUBE PO PRN (13:37)
[2021-02-28] MEDS ORDERED: GLUCAGON FOR INJ 1 MG VIAL SQ PRN (13:37)
[2021-02-28] MEDS ORDERED: DEXTROSE 50% 50 ML SYRINGE IV PRN (13:37)
[2021-02-28] MEDS ORDERED: CARBOHYDRATES FOR HYPOGLYCEMIA PO PRN (13:37)
[2021-02-28] MEDS ORDERED: GLUCOSE 40% GEL 15 GM TUBE PO PRN (13:37)
[2021-02-28 14:03] LABS: Hematocrit (blood only) 42.2 % (42-52); Hemoglobin 13.6 g/dL (14.0-18.0)
[2021-02-28] MEDS ORDERED: methylPREDNISolone 40 MG in SYRINGE 0 ML IV ONE (14:15)
--- NOTE | 2021-02-28 14:18 | Communication Note ---
Date of Service: February 28, 2021 During examination in ER, patient had brief 2-3 second episode with body slackening and leaning forward before straightening while sitting on side of bed. No tonic clonic movements, tongue biting or post-ictal state. No bowel incontinence. No fall. Asked RN Donna Hurt to come to bedside for remainder of exam due to concern for fall in setting of supratherapeutic INR. Due to episode, requested for patient to lay back in bed for his safety. He refused a positional change in setting of chronic back pain. Due to fall risk, RN asked to leave curtain open for better visualization. Patient refused. Made charge nurse Luis Antonio Boland aware. Ordering fall precautions, door/curtain to be kept open for patient safety reasons, neuro checks Qshift Stephani Last PA-C Noted Dr Abdulaziz Vasquez
[2021-02-28] MEDS: ALBUT/IPRATROP 3MG/0.5MG NEB 3 ML VIAL NEB SCH ×2 (14:55→19:20)
[2021-02-28] MEDS: buprenorphine HCL 8 MG SUBL SL SCH ×2 (15:53→20:39)
[2021-02-28] MEDS: GABAPENTIN 800 MG TAB PO SCH ×2 (15:54→20:37)
[2021-02-28] MEDS: FUROSEMIDE 40 MG in SYRINGE 0 ML IV SCH (17:45)
[2021-02-28] MEDS: LORazepam 0.5 MG TAB PO PRN (17:45)
[2021-02-28] MEDS: INSULIN ASPART 100 UNITS/ML 3 ML PEN SC SCH ×2 (17:54→20:40)
[2021-02-28] MEDS: CYCLOBENZAPRINE HCL 10 MG TAB PO PRN (18:05)
[2021-02-28 19:44] LABS: Hemoglobin 14.3 g/dL (14.0-18.0)
[2021-02-28] MEDS: DOCUSATE SODIUM 100 MG CAP PO SCH (20:37)
[2021-02-28] MEDS: POTASSIUM CHLORIDE CRTAB 20 MEQ TABCR PO SCH (20:37)
[2021-02-28] MEDS: ATORVASTATIN 40 MG TAB PO SCH (20:38)
[2021-02-28] MEDS: METOPROLOL SUCC 25MG EXT REL TAB PO SCH (20:38)
[2021-02-28] MEDS ORDERED: traMADol HCL 50 MG TABLET PO STA (20:58)
[2021-03-01] MEDS: LORazepam 0.5 MG TAB PO PRN ×3 (01:06→18:12)
[2021-03-01] MEDS: NICOTINE 21 MG/24 HR TDSY TD SCH (03:00)
[2021-03-01] MEDS: PROMETHAZINE HCL 25 MG TAB PO PRN (03:26)
[2021-03-01] MEDS: INSULIN GLARGINE SOLOSTAR 100 UNITS/ML 3 ML PEN SC SCH ×3 (03:39→22:24)
[2021-03-01 05:37] LABS: Hematocrit (blood only) 41.3 % (42-52); Hemoglobin 13.3 g/dL (14.0-18.0); Mean Corpuscular Hemoglobin 27.7 pg (25-34); Mean Corpuscular Hgb Conc 32.2 g/dL (32-36); Mean Corpuscular Volume 85.9 fL (80-100); Platelet Count 223 K/uL (130-400); RDW Coefficient of Variation 17.4 % (11.5-14.5); RDW Standard Deviation 54.3 fL (36.4-46.3); Red Blood Count 4.81 M/uL (4.7-6.1); White Blood Count 15.62 K/uL (4.8-10.8)
[2021-03-01 05:55] LABS: BUN Creatinine Ratio 13.3 (10-20); Calcium 8.7 mg/dl (8.5-10.1); Creatinine Clr Calc Pharmacy 179.8 ml/min; Est GFR (African American) 116.6 ml/min; Est GFR (Non-African American) 100.6 ml/min; INR 3.6 (0.9-1.1); Potassium 4.4 mmol/L (3.5-5.1); Prothrombin Time 32.9 Seconds (9.0-12.0)
[2021-03-01] MEDS: PANTOprazole 40 MG TAB PO SCH (06:30)
[2021-03-01] MEDS: ALBUT/IPRATROP 3MG/0.5MG NEB 3 ML VIAL NEB SCH ×4 (07:06→19:34)
[2021-03-01] MEDS: CYCLOBENZAPRINE HCL 10 MG TAB PO PRN ×2 (07:59→22:35)
[2021-03-01] MEDS: buprenorphine HCL 8 MG SUBL SL SCH ×3 (07:59→22:20)
[2021-03-01] MEDS: FINASTERIDE 5 MG TAB PO SCH (08:00)
[2021-03-01] MEDS: METHENAMINE HIPPURATE 1 GM TAB PO SCH (08:01)
[2021-03-01] MEDS: METOPROLOL SUCC 25MG EXT REL TAB PO SCH ×2 (08:01→22:19)
[2021-03-01] MEDS: FOLIC ACID 1 MG TAB PO SCH (08:01)
[2021-03-01] MEDS: DOCUSATE SODIUM 100 MG CAP PO SCH ×2 (08:02→22:35)
[2021-03-01] MEDS: ADVANCED PROBIOTIC 1250 MG CAPSULE PO SCH (08:02)
[2021-03-01] MEDS: ASPIRIN 81 MG ECTAB PO SCH (08:02)
[2021-03-01] MEDS: FAMOTIDINE 20 MG TAB PO SCH (08:03)
[2021-03-01] MEDS: ISOSORBIDE MONO EXTENDED REL 30 MG TABCR PO SCH (08:03)
[2021-03-01] MEDS: TAMSULOSIN HCL 0.4 MG CAP PO SCH (08:04)
[2021-03-01] MEDS: predniSONE 20 MG TAB PO SCH (08:04)
[2021-03-01] MEDS: FLUTICASONE PROPIONATE NA SPR 16 GM BTL NAE SCH (08:05)
[2021-03-01] MEDS: DULoxetine HCL 60 MG CAP PO SCH (08:05)
[2021-03-01] MEDS: UMECLIDINIUM BROMIDE 62.5MCG/BLISTER 7 PUFFS/INHALER INH SCH (08:06)
--- NOTE | 2021-03-01 08:06 | Electrocardiogram Report ---
Test Reason : Blood Pressure : / mmHG Vent. Rate : 091 BPM Atrial Rate : 091 BPM P-R Int : 150 ms QRS Dur : 100 ms QT Int : 356 ms P-R-T Axes : 034 049 052 degrees QTc Int : 437 ms Normal sinus rhythm Incomplete right bundle branch block Nonspecific T wave abnormality Abnormal ECG When compared with ECG of 23-JAN-2021 12:56, No significant change was found Confirmed by Shaquille Canales ([id number]) on 03/01/2021 8:06:28 AM Referred By: REFERRED SELF Confirmed By:Shaquille Canales
[2021-03-01] MEDS: SPIRONOLACTONE 25 MG TAB PO SCH (08:07)
[2021-03-01] MEDS: FLUTICASONE/VILANTEROL 100/25MCG 14 PUFFS/INHALER INH SCH (08:07)
[2021-03-01] MEDS: GABAPENTIN 800 MG TAB PO SCH ×3 (08:08→22:20)
[2021-03-01] MEDS: POTASSIUM CHLORIDE CRTAB 20 MEQ TABCR PO SCH ×2 (08:08→22:19)
[2021-03-01] MEDS: INSULIN ASPART 100 UNITS/ML 3 ML PEN SC SCH ×4 (08:11→22:22)
[2021-03-01] MEDS ORDERED: FUROSEMIDE 40 MG/4 ML VIAL IV ONE (08:18)
[2021-03-01] MEDS: FUROSEMIDE 40 MG in SYRINGE 0 ML IV SCH ×2 (08:21→16:11)
--- NOTE | 2021-03-01 14:25 | Communication Note ---
Date of Service: March 01, 2021 Can have a light snack at night. Dr Abdulaziz Vasquez
--- NOTE | 2021-03-01 14:53 | Hospitalist Progress Note ---
Date of Service March 01, 2021 Assessment & Plan (1) Fall: No significant injury Complains some headache and pain in right upper quadrant (2) Supratherapeutic INR: This is a 50-year-old male with PMH of history of recurrent PE on coumadin, complicated bronchitis/COPD, history of recurrent UTIs secondary to BPH with chronic indwelling Lloyd catheter on chronic methenamine suppression, DM II, history of traumatic subdural hematoma/subarachnoid hemorrhage in the setting of Coumadin coagulopathy, history of chronic diastolic heart failure (EF 55-60%, TTE 2020), CAD, HTN, HLD, chronic pain on Subutex, history of drug-seeking behavior as per records, ongoing tobacco abuse and other medical problems listed below who presents after fall at home yesterday. Presenting in setting of fall yesterday with bruise on forehead, bleeding from R EAC and nose on presentation, also with hematuria INR > 10, on coumadin for shelter anticoagulation for h/o PE Given 10mg IV vitamin K in the ED No active bleeding at time of evaluation Mentating at baseline Vital signs stable. Hemoglobin at baseline of 14 CT head without acute intracranial abnormality Hold Coumadin Hemoglobin did not drop significantly Hematuria and right ear bleeding have stopped INR came down to just about 3 from 10 We will check INR tomorrow and possible discharge tomorrow if below 3 and hemoglobin remains stable (3) Hematuria: Tea colored urine in setting of supratherapeutic INR Underwent catheter change yesterday Continue to monitor H/H Reversing INR No more hematuria and INR seems to be just over 3 today (4) History of pulmonary embolism: Coumadin on hold due to supratherapeutic INR. See above Will restart Coumadin from tomorrow (5) Decompensated heart failure: Endorsing 12 pound weight gain in the past 5 days with increased shortness of breath Chest x-ray technically limited secondary to morbid obesity but mild pulmonary vascular congestion present Given 40 mg IV Lasix in ED Plan to continue diuresis with 40 mg IV Lasix twice daily Strict intake and output with Lloyd catheter in place Daily weights Low-sodium diet (6) COPD exacerbation: Mild COPD exacerbation in setting of ongoing tobacco use Saturating 91% on room air. Uses up to 4 L nasal cannula oxygen at bedtime as n eeded Scattered wheezing, improved after breathing treatment in ER DuoNeb every 4 HR, given Solu-Medrol 40 mg IV x1, start prednisone course 40 mg daily tomorrow Still has wheezing but has not been requiring any oxygen We will continue prednisone for 5 days in total and continue his other usual medications (7) Morbid obesity: BMI 59 (8) Hypoventilation associated with obesity: Uses up to 4 L nasal cannula oxygen at bedtime as needed (9) HTN (hypertension): Continue home Toprol (10) BPH (benign prostatic hyperplasia): (11) Indwelling Lloyd catheter present: Continue tamsulosin, finasteride (12) DM type 2 (diabetes mellitus, type 2): Hemoglobin A1c 9.3 in January 2021 Basal/bolus insulin ordered per protocol while patient in hospital May need additional insulin coverage in setting of steroids BSG AC HS (13) Low back pain: (14) Opioid dependence: Longstanding issues with chronic pain and opioid dependence Limiting use of IV narcotics recommended Will continue with home pain regimen of 8 mg buprenorphine TID Patient requesting additional opioids due to recent fall - plan to consult pain mgmt if needed for further assistance Received 1 dose of Ultram last night for increasing pain Will not give any as needed narcotics (15) Depression with anxiety: Continue SSRI DVT Ppx: SCDs only. Holding coumadin in setting of supratherapeutic INR Code status: FULL PCP: Jamilah Dispo: Admitted to PCU. Discharge planning ordered Likely discharge tomorrow Admission and Anticipated Discharge Date Admission Date: February 28, 2021 Subjective 03/01/2021 The patient was seen and examined in telemetry unit He complains to have pain in the head and also upper abdomen secondary to injury from fall He denies any increasing shortness of breath but does have wheezing No more bleeding Review of Systems Review of Systems: All systems reviewed and are unremarkable except as noted below Physical Exam Physical Exam: Lying in bed comfortably Constitutional: well developed, well nourished, + ill appearing and + morbidly obese Eyes: PERRL, conjunctivae normal, anicteric sclerae ENMT: external ear and nose normal, oropharynx normal Neck: trachea midline, no thyromegaly Respiratory: no respiratory distress Auscultation: + diminished lung sounds and + wheezes (Bilateral wheezing) Gastrointestinal (Abdomen): Inspection/Auscultation: + abdomen distended and normal bowel sounds Percussion/Palpation: + abdomen tender (Tender right upper quadrant and epigastric area) and abdomen soft Musculoskeletal: No acute arthritis in any joint Skin: Chronic skin changes involving the legs with edema Neurologic: Alert, 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 Lymphatic: no cervical or axillary lymphadenopathy Results & Data Results & Data ([facility]) Vital Signs (Past 12 Hours) Vital Signs Temp Pulse Pulse Resp BP BP Pulse Ox 03/01/21 11:33 36.8 C 77 20 92/60 L 92 03/01/21 11:22 75 20 91 03/01/21 07:35 36.6 C 76 16 127/70 96 03/01/21 07:30 83 03/01/21 07:12 82 20 95 Laboratory Results Short CBC 02/28/21 03/01/21 Range/Units 19:07 05:29 WBC 15.62 H (4.8-10.8) K/uL Hgb 14.3 13.3 L (14.0-18.0) g/dL Hct 44.0 41.3 L (42-52) % Plt Count 223 (130-400) K/uL BMP 03/01/21 05:29 Sodium 139 Potassium 4.4 Chloride 105 Carbon Dioxide 29 BUN 12 Creatinine 0.87 Glucose 159 H Calcium 8.7 Medications Administered Current Inpatient Medications Acetaminophen (Acetaminophen 500 Mg Tab) 1,000 mg PO Q8H PRN PRN Reason: Pain or Fever Stop: 03/30/21 13:25 Albuterol (Albuterol Hfa 8 Gm Inhaler) 2 puffs INH Q4 PRN PRN Reason: Dyspnea Stop: 03/30/21 13:33 Albuterol (Albut/Ipratrop 3mg/0.5mg Neb 3 Ml Vial) 3 ml NEB QIDR [facility] Stop: 03/30/21 14:59 Last Admin: 03/01/21 11:19 Dose: 3 ml Documented by: Aspirin (Aspirin 81 Mg Ectab) 81 mg PO QAM [facility] Stop: 03/31/21 08:59 Last Admin: 03/01/21 08:02 Dose: 81 mg Documented by: Atorvastatin Calcium (Atorvastatin 40 Mg Tab) 80 mg PO QPM [facility] Stop: 03/30/21 20:59 Last Admin: 02/28/21 20:38 Dose: 80 mg Documented by: Buprenorphine HCl (Buprenorphine Hcl 8 Mg Subl) 8 mg SL TID [facility] Stop: 03/30/21 13:59 Last Admin: 03/01/21 14:42 Dose: 8 mg Documented by: Cyclobenzaprine HCl (Cyclobenzaprine Hcl 10 Mg Tab) 10 mg PO BID PRN PRN Reason: Muscle Spasm Stop: 03/30/21 13:46 Last Admin: 03/01/21 07:59 Dose: 10 mg Documented by: Dextrose (Dextrose 50% 50 Ml Syringe) 25 - 50 ml IV UD PRN; Protocol PRN Reason: Hypoglycemia Protocol Stop: 03/30/21 13:36 Docusate Sodium (Docusate Sodium 100 Mg Cap) 100 mg PO BID [facility] Stop: 03/30/21 20:59 Last Admin: 03/01/21 08:02 Dose: 100 mg Documented by: Duloxetine HCl (Duloxetine Hcl 60 Mg Cap) 60 mg PO DAILY [facility] Stop: 03/31/21 08:59 Last Admin: 03/01/21 08:05 Dose: 60 mg Documented by: Famotidine (Famotidine 20 Mg Tab) 20 mg PO DAILY [facility] Stop: 03/31/21 08:59 Last Admin: 03/01/21 08:03 Dose: 20 mg Documented by: Finasteride (Finasteride 5 Mg Tab) 5 mg PO QAM [facility] Stop: 03/31/21 08:59 Last Admin: 03/01/21 08:00 Dose: 5 mg Documented by: Fluticasone Propionate (Fluticasone Propionate Na Spr 16 Gm Btl) 2 sprays HANSA DAILY [facility] Stop: 03/31/21 08:59 Last Admin: 03/01/21 08:05 Dose: 2 sprays Documented by: Fluticasone/Vilanterol (Fluticasone/Vilanterol 100/25mcg 14 Puffs/Inhaler) 1 puffs INH DAILY [facility] Stop: 03/31/21 08:59 Last Admin: 03/01/21 08:07 Dose: 1 puffs Documented by: Folic Acid (Folic Acid 1 Mg Tab) 1 mg PO QAM [facility] Stop: 03/31/21 08:59 Last Admin: 03/01/21 08:01 Dose: 1 mg Documented by: Gabapentin (Gabapentin 800 Mg Tab) 800 mg PO TID [facility] Stop: 03/30/21 13:59 Last Admin: 03/01/21 14:35 Dose: 800 mg Documented by: Glucagon (Glucagon For Inj 1 Mg Vial) 1 mg SQ UD PRN; Protocol PRN Reason: Hypoglycemia Protocol Stop: 03/30/21 13:36 Glucose (Glucose 10 Tabs/Tube) 4 - 8 tabs PO UD PRN; Protocol PRN Reason: Hypoglycemia Protocol Stop: 03/30/21 13:36 Glucose (Glucose 40% Gel 15 Gm Tube) 15 - 30 gm PO UD PRN; Protocol PRN Reason: Hypoglycemia Protocol Stop: 03/30/21 13:36 Hydroxyzine HCl (Hydroxyzine Hcl 25 Mg Tab) 25 mg PO QID PRN PRN Reason: Anxiety Stop: 03/30/21 13:33 Furosemide 40 mg/ Syringe 4 mls @ 4 mls/min IV BID17 [facility] Stop: 03/30/21 16:59 Last Admin: 03/01/21 08:21 Dose: 4 mls/min Documented by: Insulin Aspart (Insulin Aspart 100 Units/Ml 3 Ml Pen) 0 units SC ACHS [facility] Stop: 03/30/21 16:29 Last Admin: 03/01/21 12:00 Dose: 9 units Documented by: Insulin Glargine (Insulin Glargine Solostar 100 Units/Ml 3 Ml Pen) 0 - 25 units SC BID [facility]ATRI[facility]; Protocol Stop: 03/30/21 20:59 Last Admin: 03/01/21 08:10 Dose: 15 units Documented by: Isosorbide Mononitrate (Isosorbide [place] Extended Rel 30 Mg Tabcr) 30 mg PO DAILY [facility] Stop: 03/31/21 08:59 Last Admin: 03/01/21 08:03 Dose: 30 mg Documented by: Lactobacillus Acidoph/Casei/Rhamnos (Advanced Probiotic 1250 Mg Capsule) 2 cap PO DAILY [facility] Stop: 03/31/21 08:59 Last Admin: 03/01/21 08:02 Dose: 2 cap Documented by: Lorazepam (Lorazepam 0.5 Mg Tab) 0.5 mg PO Q8 PRN PRN Reason: Anxiety Stop: 03/30/21 13:33 Last Admin: 03/01/21 10:08 Dose: 0.5 mg Documented by: Methenamine Hippurate (Methenamine Hippurate 1 Gm Tab) 1 gm PO DAILY [facility] Stop: 03/31/21 08:59 Last Admin: 03/01/21 08:01 Dose: 1 gm Documented by: Metoprolol Succinate (Metoprolol Succ 25mg Ext Rel Tab) 75 mg PO BID [facility] Stop: 03/30/21 20:59 Last Admin: 03/01/21 08:01 Dose: 75 mg Documented by: Miscellaneous (Carbohydrates For Hypoglycemia ) 15 - 30 gm PO UD PRN PRN Reason: Hypoglycemia Protocol Stop: 03/30/21 13:36 Miscellaneous (Remove Nicoderm Patch) 1 ea N/A DAILY@0259 [facility] Stop: 03/31/21 08:58 Nicotine (Nicotine 21 Mg/24 Hr Tdsy) 21 mg TD Q24H [facility] Stop: 03/31/21 02:59 Last Admin: 03/01/21 03:00 Dose: 21 mg Documented by: Nitroglycerin (Nitroglycerin Sl 0.4 Mg/Tab Tab) 0.4 mg SL Q5M PRN PRN Reason: CHEST PAIN Stop: 03/30/21 13:33 Nystatin (Nystatin Powder 15gm Btl) 1 appln EXT TID PRN PRN Reason: Skin Irritation Stop: 03/30/21 13:33 Ondansetron HCl (Ondansetron Inj 2 Mg/Ml 2 Ml Vial) 4 mg IV Q6H PRN PRN Reason: Nausea Stop: 03/30/21 13:25 Pantoprazole Sodium (Pantoprazole 40 Mg Tab) 40 mg PO DAILYBB [facility] Stop: 03/31/21 06:29 Last Admin: 03/01/21 06:30 Dose: 40 mg Documented by: Polyethylene Glycol (Polyethylene (Miralax) 17 Gm Pack) 17 gm PO DAILY PRN PRN Reason: Constipation Stop: 03/30/21 13:25 Potassium Chloride (Potassium Chloride Crtab 20 Meq Tabcr) 20 meq PO BID [facility] Stop: 03/30/21 20:59 Last Admin: 03/01/21 08:08 Dose: 20 meq Documented by: Prednisone (Prednisone 20 Mg Tab) 40 mg PO DAILY [facility] Stop: 03/31/21 08:59 Last Admin: 03/01/21 08:04 Dose: 40 mg Documented by: Promethazine HCl (Promethazine Hcl 25 Mg Tab) 25 mg PO Q6H PRN PRN Reason: Nausea And Vomiting Stop: 03/31/21 02:52 Last Admin: 03/01/21 03:26 Dose: 25 mg Documented by: Sennosides (Senna 8.6 Mg Tab) 8.6 mg PO DAILY PRN PRN Reason: Constipation Stop: 03/30/21 13:33 Spironolactone (Spironolactone 25 Mg Tab) 25 mg PO [facility] Stop: 03/31/21 08:59 Last Admin: 03/01/21 08:07 Dose: 25 mg Documented by: Tamsulosin HCl (Tamsulosin Hcl 0.4 Mg Cap) 0.4 mg PO [facility] Stop: 03/31/21 08:59 Last Admin: 03/01/21 08:04 Dose: 0.4 mg Documented by: Umeclidinium [place] (Umeclidinium [place] 62.5mcg/Blister 7 Puffs/Inhaler) 1 puffs INH [facility] Stop: 03/31/21 08:59 Last Admin: 03/01/21 08:06 Dose: 1 puffs Documented by: (1) Low back pain Back pain laterality: unspecified Chronicity: unspecified Sciatica presence: unspecified whether sciatica present Qualified Code(s): M54.5 - Low back pain (2) Hematuria Hematuria type: gross Qualified Code(s): R31.0 - Gross hematuria (3) HTN (hypertension) Hypertension type: essential hypertension Qualified Code(s): I10 - Essential (primary) hypertension
[2021-03-01] MEDS ORDERED: traMADol HCL 50 MG TABLET PO STA (19:47)
[2021-03-01] MEDS: ATORVASTATIN 40 MG TAB PO SCH (22:20)
[2021-03-01] MEDS ORDERED: traMADol HCL 50 MG TABLET ONE (23:21)
[2021-03-02] MEDS ORDERED: guaiFENesin/CODEINE 100MG/10MG 5ML UDC PO PRN (01:10)
[2021-03-02] MEDS: NICOTINE 21 MG/24 HR TDSY TD SCH (02:13)
[2021-03-02] MEDS: LORazepam 0.5 MG TAB PO PRN ×3 (02:21→20:30)
[2021-03-02] MEDS: PROMETHAZINE HCL 25 MG TAB PO PRN (02:57)
[2021-03-02 06:29] LABS: Basophils # (auto) 0.05 K/uL (0-0.2); Basophils % (auto) 0.3 %; Eosinophils # (auto) 0.05 K/uL (0-0.5); Eosinophils % (auto) 0.3 %; Hematocrit (blood only) 40.5 % (42-52); Hemoglobin 12.9 g/dL (14.0-18.0); Immature Granulocytes # (auto) 0.06 K/uL (0.00-0.02); Immature Granulocytes % (auto) 0.4 %; Lymphocytes # (auto) 3.68 K/uL (1.2-3.4); Lymphocytes % (auto) 22.3 %; Mean Corpuscular Hemoglobin 27.2 pg (25-34); Mean Corpuscular Hgb Conc 31.9 g/dL (32-36); Mean Corpuscular Volume 85.4 fL (80-100); Mean Platelet Volume 10.8 fL (7.4-10.4); Monocytes # (auto) 1.29 K/uL (0.11-0.59); Monocytes % (auto) 7.8 %; Neutrophils # (auto) 11.37 K/uL (1.4-6.5); Neutrophils % (auto) 68.9 %; Platelet Count 213 K/uL (130-400); RDW Coefficient of Variation 17.9 % (11.5-14.5); RDW Standard Deviation 54.7 fL (36.4-46.3); Red Blood Count 4.74 M/uL (4.7-6.1)
[2021-03-02] MEDS: PANTOprazole 40 MG TAB PO SCH (06:45)
[2021-03-02 06:47] LABS: INR 2.9 (0.9-1.1); Prothrombin Time 27.2 Seconds (9.0-12.0)
[2021-03-02 06:48] LABS: BUN Creatinine Ratio 24.2 (10-20); Calcium 9.1 mg/dl (8.5-10.1); Creatinine Clr Calc Pharmacy 199.9 ml/min; Est GFR (Non-African American) 105.3 ml/min; Potassium 4.1 mmol/L (3.5-5.1)
[2021-03-02] MEDS: ALBUT/IPRATROP 3MG/0.5MG NEB 3 ML VIAL NEB SCH ×4 (07:11→19:19)
[2021-03-02] MEDS: buprenorphine HCL 8 MG SUBL SL SCH ×3 (07:54→20:30)
[2021-03-02] MEDS: CYCLOBENZAPRINE HCL 10 MG TAB PO PRN ×2 (07:54→21:31)
[2021-03-02] MEDS: FUROSEMIDE 40 MG in SYRINGE 0 ML IV SCH ×2 (07:58→17:07)
[2021-03-02] MEDS: FLUTICASONE/VILANTEROL 100/25MCG 14 PUFFS/INHALER INH SCH (07:59)
[2021-03-02] MEDS: UMECLIDINIUM BROMIDE 62.5MCG/BLISTER 7 PUFFS/INHALER INH SCH (07:59)
[2021-03-02] MEDS: FLUTICASONE PROPIONATE NA SPR 16 GM BTL NAE SCH (07:59)
[2021-03-02] MEDS: predniSONE 20 MG TAB PO SCH (08:00)
[2021-03-02] MEDS: ISOSORBIDE MONO EXTENDED REL 30 MG TABCR PO SCH (08:01)
[2021-03-02] MEDS: METHENAMINE HIPPURATE 1 GM TAB PO SCH (08:01)
[2021-03-02] MEDS: TAMSULOSIN HCL 0.4 MG CAP PO SCH (08:01)
[2021-03-02] MEDS: SPIRONOLACTONE 25 MG TAB PO SCH (08:02)
[2021-03-02] MEDS: ASPIRIN 81 MG ECTAB PO SCH (08:02)
[2021-03-02] MEDS: FOLIC ACID 1 MG TAB PO SCH (08:02)
[2021-03-02] MEDS: GABAPENTIN 800 MG TAB PO SCH ×3 (08:03→20:18)
[2021-03-02] MEDS: FINASTERIDE 5 MG TAB PO SCH (08:03)
[2021-03-02] MEDS: ADVANCED PROBIOTIC 1250 MG CAPSULE PO SCH (08:03)
[2021-03-02] MEDS: METOPROLOL SUCC 25MG EXT REL TAB PO SCH ×2 (08:04→20:19)
[2021-03-02] MEDS: FAMOTIDINE 20 MG TAB PO SCH (08:05)
[2021-03-02] MEDS: DULoxetine HCL 60 MG CAP PO SCH (08:05)
[2021-03-02] MEDS: DOCUSATE SODIUM 100 MG CAP PO SCH ×2 (08:06→20:30)
[2021-03-02] MEDS: POLYETHYLENE (MIRALAX) 17 GM PACK PO PRN (08:06)
[2021-03-02] MEDS: INSULIN GLARGINE SOLOSTAR 100 UNITS/ML 3 ML PEN SC SCH ×2 (08:07→20:34)
[2021-03-02] MEDS: INSULIN ASPART 100 UNITS/ML 3 ML PEN SC SCH ×4 (08:08→20:30)
[2021-03-02] MEDS: POTASSIUM CHLORIDE CRTAB 20 MEQ TABCR PO SCH ×2 (08:12→20:30)
[2021-03-02] MEDS: guaiFENesin/DEXTROM SYRUP 200MG/20MG 10ML UDC PO PRN ×2 (11:57→20:30)
--- NOTE | 2021-03-02 12:33 | Hospitalist Progress Note ---
Date of Service March 02, 2021 Assessment & Plan (1) Fall: No significant injury Complains some headache and pain in right upper quadrant We will give a dose of Ultram today (2) Supratherapeutic INR: This is a 50-year-old male with PMH of history of recurrent PE on coumadin, complicated bronchitis/COPD, history of recurrent UTIs secondary to BPH with chronic indwelling Lloyd catheter on chronic methenamine suppression, DM II, history of traumatic subdural hematoma/subarachnoid hemorrhage in the setting of Coumadin coagulopathy, history of chronic diastolic heart failure (EF 55-60%, TTE 2020), CAD, HTN, HLD, chronic pain on Subutex, history of drug-seeking behavior as per records, ongoing tobacco abuse and other medical problems listed below who presents after fall at home yesterday. Presenting in setting of fall yesterday with bruise on forehead, bleeding from R EAC and nose on presentation, also with hematuria INR > 10, on coumadin for skilled nursing anticoagulation for h/o PE Given 10mg IV vitamin K in the ED No active bleeding at time of evaluation Mentating at baseline Vital signs stable. Hemoglobin at baseline of 14 CT head without acute intracranial abnormality Hold Coumadin Hemoglobin did not drop significantly Hematuria and right ear bleeding have stopped INR came down to just about 3 from 10 INR today is 2.9 We will restart Coumadin today (3) Hematuria: Tea colored urine in setting of supratherapeutic INR Underwent catheter change yesterday Continue to monitor H/H Reversing INR No more hematuria and INR seems to be just over 3 today (4) History of pulmonary embolism: Coumadin on hold due to supratherapeutic INR. See above Will restart Coumadin from tomorrow (5) Decompensated heart failure: Endorsing 12 pound weight gain in the past 5 days with increased shortness of breath Chest x-ray technically limited secondary to morbid obesity but mild pulmonary vascular congestion present Given 40 mg IV Lasix in ED Plan to continue diuresis with 40 mg IV Lasix twice daily Strict intake and output with Lloyd catheter in place Daily weights Low-sodium diet (6) COPD exacerbation: Mild COPD exacerbation in setting of ongoing tobacco use Saturating 91% on room air. Uses up to 4 L nasal cannula oxygen at bedtime as needed Scattered wheezing, improved after breathing treatment in ER DuoNeb every 4 HR, given Solu-Medrol 40 mg IV x1, start prednisone course 40 mg daily tomorrow Still has wheezing but has not been requiring any oxygen We will continue prednisone for 5 days in total and continue his other usual medications Has wheezing and cough-we will start Robitussin-DM (7) Morbid obesity: BMI 59 (8) Hypoventilation associated with obesity: Uses up to 4 L nasal cannula oxygen at bedtime as needed (9) HTN (hypertension): Continue home Toprol (10) BPH (benign prostatic hyperplasia): (11) Indwelling Lloyd catheter present: Continue tamsulosin, finasteride (12) DM type 2 (diabetes mellitus, type 2): Hemoglobin A1c 9.3 in January 2021 Basal/bolus insulin ordered per protocol while patient in hospital May need additional insulin coverage in setting of steroids BSG AC HS (13) Low back pain: (14) Opioid dependence: Longstanding issues with chronic pain and opioid dependence Limiting use of IV narcotics recommended Will continue with home pain regimen of 8 mg buprenorphine TID Patient requesting additional opioids due to recent fall - plan to consult pain mgmt if needed for further assistance Received 1 dose of Ultram last night for increasing pain Will not give any as needed narcotics (15) Depression with anxiety: Continue SSRI DVT Ppx: SCDs only. Holding coumadin in setting of supratherapeutic INR Code status: FULL PCP: Jamilah Dispo: Admitted to PCU. Discharge planning ordered Likely discharge tomorrow Admission and Anticipated Discharge Date Admission Date: February 28, 2021 Subjective 03/01/2021 The patient was seen and examined in telemetry unit He complains to have pain in the head and also upper abdomen secondary to injury from fall He denies any increasing shortness of breath but does have wheezing No more bleeding 03/02/2021 The patient was seen and examined in telemetry unit He complains of more pain in the head and also right right upper abdomen and tells that since the fall the pain is worse He has cough with wheezing but has not been requiring any oxygen to maintain saturation more than 95% He does not have any more hematuria and no other bleeding He has had some confusion following codeine last night-we will discontinue guaifenesin with codeine and give Robitussin-DM for cough Review of Systems Review of Systems: All systems reviewed and are unremarkable except as noted below Musculoskeletal: Complains of pain in the right forehead and also right upper abdomen Physical Exam Physical Exam: Lying in bed with some distress due to pain Constitutional: well developed, well nourished, + ill appearing and + morbidly obese Eyes: PERRL, conjunctivae normal, anicteric sclerae ENMT: external ear and nose normal, oropharynx normal Neck: trachea midline, no thyromegaly Respiratory: no respiratory distress Auscultation: + diminished lung sounds and + wheezes (Bilateral wheezing) Cardiovascular: Rate/Rhythm: regular rate and regular rhythm Heart Sounds: no murmur Extremities: + edema (Bilateral leg edema with chronic skin changes) Gastrointestinal (Abdomen): Inspection/Auscultation: + abdomen distended and normal bowel sounds Percussion/Palpation: + abdomen tender (Tender right upper quadrant and epigastric area) and abdomen soft Musculoskeletal: No acute arthritis in any joint Neurologic: Alert, 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. No focal sensory and motor deficit appreciated Lymphatic: no cervical or axillary lymphadenopathy Results & Data Results & Data ([facility]) Vital Signs (Past 12 Hours) Vital Signs Temp Pulse Pulse Resp BP BP Pulse Ox 03/02/21 11:32 36.9 C 72 18 106/65 92 03/02/21 11:18 66 20 94 03/02/21 10:52 03/02/21 07:30 63 03/02/21 07:28 36.4 C L 72 20 125/71 95 03/02/21 07:11 66 20 96 03/02/21 03:56 36.9 C 75 20 125/57 L 97 Pulse Ox Pulse Ox 03/02/21 11:32 03/02/21 11:18 03/02/21 10:52 94 95 03/02/21 07:30 03/02/21 07:28 03/02/21 07:11 03/02/21 03:56 Laboratory Results Short CBC 03/02/21 Range/Units 05:54 WBC 16.50 H (4.8-10.8) K/uL Hgb 12.9 L (14.0-18.0) g/dL Hct 40.5 L (42-52) % Plt Count 213 (130-400) K/uL BMP 03/02/21 05:54 Sodium 141 Potassium 4.1 Chloride 106 Carbon Dioxide 29 BUN 19 H D Creatinine 0.78 Glucose 144 H Calcium 9.1 Medications Administered Current Inpatient Medications Acetaminophen (Acetaminophen 500 Mg Tab) 1,000 mg PO Q8H PRN PRN Reason: Pain or Fever Stop: 03/30/21 13:25 Albuterol (Albuterol Hfa 8 Gm Inhaler) 2 puffs INH Q4 PRN PRN Reason: Dyspnea Stop: 03/30/21 13:33 Albuterol (Albut/Ipratrop 3mg/0.5mg Neb 3 Ml Vial) 3 ml NEB QIDR EMPERATRIZ Stop: 03/30/21 14:59 Last Admin: 03/02/21 11:15 Dose: 3 ml Documented by: Aspirin (Aspirin 81 Mg Ectab) 81 mg PO QAM [facility] Stop: 03/31/21 08:59 Last Admin: 03/02/21 08:02 Dose: 81 mg Documented by: Atorvastatin Calcium (Atorvastatin 40 Mg Tab) 80 mg PO QPM [facility] Stop: 03/30/21 20:59 Last Admin: 03/01/21 22:20 Dose: 80 mg Documented by: Buprenorphine HCl (Buprenorphine Hcl 8 Mg Subl) 8 mg SL TID [facility] Stop: 03/30/21 13:59 Last Admin: 03/02/21 07:54 Dose: 8 mg Documented by: Cyclobenzaprine HCl (Cyclobenzaprine Hcl 10 Mg Tab) 10 mg PO BID PRN PRN Reason: Muscle Spasm Stop: 03/30/21 13:46 Last Admin: 03/02/21 07:54 Dose: 10 mg Documented by: Dextrose (Dextrose 50% 50 Ml Syringe) 25 - 50 ml IV UD PRN; Protocol PRN Reason: Hypoglycemia Protocol Stop: 03/30/21 13:36 Docusate Sodium (Docusate Sodium 100 Mg Cap) 100 mg PO BID [facility] Stop: 03/30/21 20:59 Last Admin: 03/02/21 08:06 Dose: 100 mg Documented by: Duloxetine HCl (Duloxetine Hcl 60 Mg Cap) 60 mg PO DAILY [facility] Stop: 03/31/21 08:59 Last Admin: 03/02/21 08:05 Dose: 60 mg Documented by: Famotidine (Famotidine 20 Mg Tab) 20 mg PO DAILY [facility] Stop: 03/31/21 08:59 Last Admin: 03/02/21 08:05 Dose: 20 mg Documented by: Finasteride (Finasteride 5 Mg Tab) 5 mg PO QAM [facility] Stop: 03/31/21 08:59 Last Admin: 03/02/21 08:03 Dose: 5 mg Documented by: Fluticasone Propionate (Fluticasone Propionate Na Spr 16 Gm Btl) 2 sprays HANSA DAILY EMPERATRIZ Stop: 03/31/21 08:59 Last Admin: 03/02/21 07:59 Dose: 2 sprays Documented by: Fluticasone/Vilanterol (Fluticasone/Vilanterol 100/25mcg 14 Puffs/Inhaler) 1 puffs INH DAILY [facility]MP[facility]ATRI[facility] Stop: 03/31/21 08:59 Last Admin: 03/02/21 07:59 Dose: 1 puffs Documented by: Folic Acid (Folic Acid 1 Mg Tab) 1 mg PO QAM [facility] Stop: 03/31/21 08:59 Last Admin: 03/02/21 08:02 Dose: 1 mg Documented by: Gabapentin (Gabapentin 800 Mg Tab) 800 mg PO TID EMP[facility]ATRI[facility] Stop: 03/30/21 13:59 Last Admin: 03/02/21 08:03 Dose: 800 mg Documented by: Glucagon (Glucagon For Inj 1 Mg Vial) 1 mg SQ UD PRN; Protocol PRN Reason: Hypoglycemia Protocol Stop: 03/30/21 13:36 Glucose (Glucose 10 Tabs/Tube) 4 - 8 tabs PO UD PRN; Protocol PRN Reason: Hypoglycemia Protocol Stop: 03/30/21 13:36 Glucose (Glucose 40% Gel 15 Gm Tube) 15 - 30 gm PO UD PRN; Protocol PRN Reason: Hypoglycemia Protocol Stop: 03/30/21 13:36 Guaifenesin/Dextromethorphan (Guaifenesin/Dextrom Syrup 200mg/20mg 10ml Udc) 10 ml PO Q6H PRN PRN Reason: Cough Stop: 04/01/21 10:40 Last Admin: 03/02/21 11:57 Dose: 10 ml Documented by: Hydroxyzine HCl (Hydroxyzine Hcl 25 Mg Tab) 25 mg PO QID PRN PRN Reason: Anxiety Stop: 03/30/21 13:33 Furosemide 40 mg/ Syringe 4 mls @ 4 mls/min IV BID17 EMPERATRIZ Stop: 03/30/21 16:59 Last Admin: 03/02/21 07:58 Dose: 4 mls/min Documented by: Insulin Aspart (Insulin Aspart 100 Units/Ml 3 Ml Pen) 0 units SC ACHS [facility] Stop: 03/30/21 16:29 Last Admin: 03/02/21 11:36 Dose: 14 units Documented by: Insulin Glargine (Insulin Glargine Solostar 100 Units/Ml 3 Ml Pen) 0 - 25 units SC BID [facility]; Protocol Stop: 03/30/21 20:59 Last Admin: 03/02/21 08:07 Dose: 15 units Documented by: Isosorbide Mononitrate (Isosorbide [place] Extended Rel 30 Mg Tabcr) 30 mg PO DAILY [facility] Stop: 03/31/21 08:59 Last Admin: 03/02/21 08:01 Dose: 30 mg Documented by: Lactobacillus Acidoph/Casei/Rham[place] (Advanced Probiotic 1250 Mg Capsule) 2 cap PO DAILY [facility] Stop: 03/31/21 08:59 Last Admin: 03/02/21 08:03 Dose: 2 cap Documented by: Lorazepam (Lorazepam 0.5 Mg Tab) 0.5 mg PO Q8 PRN PRN Reason: Anxiety Stop: 03/30/21 13:33 Last Admin: 03/02/21 11:57 Dose: 0.5 mg Documented by: Methenamine Hippurate (Methenamine Hippurate 1 Gm Tab) 1 gm PO DAILY [facility] Stop: 03/31/21 08:59 Last Admin: 03/02/21 08:01 Dose: 1 gm Documented by: Metoprolol Succinate (Metoprolol Succ 25mg Ext Rel Tab) 75 mg PO BID [facility] Stop: 03/30/21 20:59 Last Admin: 03/02/21 08:04 Dose: 75 mg Documented by: Miscellaneous (Carbohydrates For Hypoglycemia ) 15 - 30 gm PO UD PRN PRN Reason: Hypoglycemia Protocol Stop: 03/30/21 13:36 Miscellaneous (Remove Nicoderm Patch) 1 ea N/A DAILY@0259 [facility] Stop: 03/31/21 08:58 Last Admin: 03/02/21 02:12 Dose: 1 ea Documented by: Nicotine (Nicotine 21 Mg/24 Hr Tdsy) 21 mg TD Q24H [facility] Stop: 03/31/21 02:59 Last Admin: 03/02/21 02:13 Dose: 21 mg Documented by: Nitroglycerin (Nitroglycerin Sl 0.4 Mg/Tab Tab) 0.4 mg SL Q5M PRN PRN Reason: CHEST PAIN Stop: 03/30/21 13:33 Nystatin (Nystatin Powder 15gm Btl) 1 appln EXT TID PRN PRN Reason: Skin Irritation Stop: 03/30/21 13:33 Ondansetron HCl (Ondansetron Inj 2 Mg/Ml 2 Ml Vial) 4 mg IV Q6H PRN PRN Reason: Nausea Stop: 03/30/21 13:25 Pantoprazole Sodium (Pantoprazole 40 Mg Tab) 40 mg PO DAILYBB [facility] Stop: 03/31/21 06:29 Last Admin: 03/02/21 06:45 Dose: 40 mg Documented by: Polyethylene Glycol (Polyethylene (Miralax) 17 Gm Pack) 17 gm PO DAILY PRN PRN Reason: Constipation Stop: 03/30/21 13:25 Last Admin: 03/02/21 08:06 Dose: 17 gm Documented by: Potassium Chloride (Potassium Chloride Crtab 20 Meq Tabcr) 20 meq PO BID [facility] Stop: 03/30/21 20:59 Last Admin: 03/02/21 08:12 Dose: 20 meq Documented by: Prednisone (Prednisone 20 Mg Tab) 40 mg PO DAILY [facility] Stop: 03/31/21 08:59 Last Admin: 03/02/21 08:00 Dose: 40 mg Documented by: Promethazine HCl (Promethazine Hcl 25 Mg Tab) 25 mg PO Q6H PRN PRN Reason: Nausea And Vomiting Stop: 03/31/21 02:52 Last Admin: 03/02/21 02:57 Dose: 25 mg Documented by: Sennosides (Senna 8.6 Mg Tab) 8.6 mg PO DAILY PRN PRN Reason: Constipation Stop: 03/30/21 13:33 Spironolactone (Spironolactone 25 Mg Tab) 25 mg PO QAM [facility] Stop: 03/31/21 08:59 Last Admin: 03/02/21 08:02 Dose: 25 mg Documented by: Tamsulosin HCl (Tamsulosin Hcl 0.4 Mg Cap) 0.4 mg PO QAM [facility] Stop: 03/31/21 08:59 Last Admin: 03/02/21 08:01 Dose: 0.4 mg Documented by: Umeclidinium Dobson (Umeclidinium Dobson 62.5mcg/Blister 7 Puffs/Inhaler) 1 puffs INH QAM [facility] Stop: 03/31/21 08:59 Last Admin: 03/02/21 07:59 Dose: 1 puffs Documented by: (1) Hematuria Hematuria type: gross Qualified Code(s): R31.0 - Gross hematuria (2) HTN (hypertension) Hypertension type: essential hypertension Qualified Code(s): I10 - Essential (primary) hypertension (3) Low back pain Back pain laterality: unspecified Chronicity: unspecified Sciatica presence: unspecified whether sciatica present Qualified Code(s): M54.5 - Low back pain
[2021-03-02] MEDS ORDERED: traMADol HCL 50 MG TABLET PO STA (12:35)
[2021-03-02] MEDS ORDERED: WARFARIN SOD 2.5 MG TAB PO SCH (16:00)
[2021-03-02] MEDS ORDERED: WARFARIN SOD 5 MG TAB PO SCH (16:00)
[2021-03-02] MEDS ORDERED: traMADol HCL 50 MG TABLET PO ONE (19:14)
[2021-03-02] MEDS: ATORVASTATIN 40 MG TAB PO SCH (20:17)
[2021-03-03] MEDS: hydrOXYzine HCl 25 MG TAB PO PRN ×2 (02:26→08:13)
[2021-03-03] MEDS: guaiFENesin/DEXTROM SYRUP 200MG/20MG 10ML UDC PO PRN (02:26)
[2021-03-03] MEDS: NICOTINE 21 MG/24 HR TDSY TD SCH (02:27)
[2021-03-03] MEDS: PANTOprazole 40 MG TAB PO SCH (06:09)
[2021-03-03] MEDS: ALBUT/IPRATROP 3MG/0.5MG NEB 3 ML VIAL NEB SCH ×2 (06:24→11:07)
[2021-03-03 07:03] LABS: Prothrombin Time 18.9 Seconds (9.0-12.0)
[2021-03-03] MEDS: ISOSORBIDE MONO EXTENDED REL 30 MG TABCR PO SCH (08:12)
[2021-03-03] MEDS: FOLIC ACID 1 MG TAB PO SCH (08:12)
[2021-03-03] MEDS: FUROSEMIDE 40 MG in SYRINGE 0 ML IV SCH (08:13)
[2021-03-03] MEDS: ASPIRIN 81 MG ECTAB PO SCH (08:13)
[2021-03-03] MEDS: GABAPENTIN 800 MG TAB PO SCH ×2 (08:14→14:11)
[2021-03-03] MEDS: METOPROLOL SUCC 25MG EXT REL TAB PO SCH (08:14)
[2021-03-03] MEDS: FINASTERIDE 5 MG TAB PO SCH (08:14)
[2021-03-03] MEDS: METHENAMINE HIPPURATE 1 GM TAB PO SCH (08:14)
[2021-03-03] MEDS: SPIRONOLACTONE 25 MG TAB PO SCH (08:14)
[2021-03-03] MEDS: FAMOTIDINE 20 MG TAB PO SCH (08:14)
[2021-03-03] MEDS: FLUTICASONE PROPIONATE NA SPR 16 GM BTL NAE SCH (08:15)
[2021-03-03] MEDS: DULoxetine HCL 60 MG CAP PO SCH (08:15)
[2021-03-03] MEDS: TAMSULOSIN HCL 0.4 MG CAP PO SCH (08:15)
[2021-03-03] MEDS: ADVANCED PROBIOTIC 1250 MG CAPSULE PO SCH (08:15)
[2021-03-03] MEDS: FLUTICASONE/VILANTEROL 100/25MCG 14 PUFFS/INHALER INH SCH (08:16)
[2021-03-03] MEDS: predniSONE 20 MG TAB PO SCH (08:16)
[2021-03-03] MEDS: UMECLIDINIUM BROMIDE 62.5MCG/BLISTER 7 PUFFS/INHALER INH SCH (08:17)
[2021-03-03] MEDS: LORazepam 0.5 MG TAB PO PRN (08:24)
[2021-03-03] MEDS: buprenorphine HCL 8 MG SUBL SL SCH ×2 (08:24→14:11)
[2021-03-03] MEDS: POTASSIUM CHLORIDE CRTAB 20 MEQ TABCR PO SCH (08:24)
[2021-03-03] MEDS: DOCUSATE SODIUM 100 MG CAP PO SCH (08:24)
[2021-03-03] MEDS: POLYETHYLENE (MIRALAX) 17 GM PACK PO PRN (08:24)
[2021-03-03] MEDS: INSULIN GLARGINE SOLOSTAR 100 UNITS/ML 3 ML PEN SC SCH (08:31)
[2021-03-03] MEDS: INSULIN ASPART 100 UNITS/ML 3 ML PEN SC SCH ×2 (08:32→12:11)
[2021-03-03] MEDS: CYCLOBENZAPRINE HCL 10 MG TAB PO PRN (09:05)
[2021-03-03] MEDS ORDERED: traMADol HCL 50 MG TABLET PO STA (09:17)
[2021-03-03] MEDS ORDERED: methylPREDNISolone 20 MG in SYRINGE 0 ML IV STA (09:25)
--- NOTE | 2021-03-03 11:07 | Hospitalist Progress Note ---
Date of Service March 03, 2021 Assessment & Plan (1) Fall: No significant injury Complains some headache and pain in right upper quadrant We will give a dose of Ultram again today He has been having more pain with movement-we will give 1mg dose of Dilaudid IV before discharge (2) Supratherapeutic INR: This is a 50-year-old male with PMH of history of recurrent PE on coumadin, complicated bronchitis/COPD, history of recurrent UTIs secondary to BPH with chronic indwelling Lloyd catheter on chronic methenamine suppression, DM II, history of traumatic subdural hematoma/subarachnoid hemorrhage in the setting of Coumadin coagulopathy, history of chronic diastolic heart failure (EF 55-60%, TTE 2020), CAD, HTN, HLD, chronic pain on Subutex, history of drug-seeking behavior as per records, ongoing tobacco abuse and other medical problems listed below who presents after fall at home yesterday. Presenting in setting of fall yesterday with bruise on forehead, bleeding from R EAC and nose on presentation, also with hematuria INR > 10, on coumadin for nursing home anticoagulation for h/o PE Given 10mg IV vitamin K in the ED No active bleeding at time of evaluation Mentating at baseline Vital signs stable. Hemoglobin at baseline of 14 CT head without acute intracranial abnormality Hold Coumadin Hemoglobin did not drop significantly Hematuria and right ear bleeding have stopped INR came down to just about 3 from 10 INR today is 2.0 Continue with Coumadin-advised to have INR checked in 2 days (3) Hematuria: Tea colored urine in setting of supratherapeutic INR Underwent catheter change yesterday Continue to monitor H/H Reversing INR No more hematuria and INR seems to be just over 3 today Urine culture showed Enterococcus faecalis infection We will give amoxicillin for a total of 7 days given the history of permanent catheter Denies any fever and no chills (4) History of pulmonary embolism: Coumadin on hold due to supratherapeutic INR. See above Will restart Coumadin from tomorrow (5) Decompensated heart failure: Endorsing 12 pound weight gain in the past 5 days with increased shortness of breath Chest x-ray technically limited secondary to morbid obesity but mild pulmonary vascular congestion present Given 40 mg IV Lasix in ED Plan to continue diuresis with 40 mg IV Lasix twice daily Strict intake and output with Lloyd catheter in place Daily weights Low-sodium diet (6) COPD exacerbation: Mild COPD exacerbation in setting of ongoing tobacco use Saturating 91% on room air. Uses up to 4 L nasal cannula oxygen at bedtime as needed Scattered wheezing, improved after breathing treatment in ER DuoNeb every 4 HR, given Solu-Medrol 40 mg IV x1, start prednisone course 40 mg daily tomorrow Still has wheezing but has not been requiring any oxygen We will continue prednisone for 5 days in total and continue his other usual medications Has wheezing and cough-we will start Robitussin-DM We will give rapid tapering of steroid on discharge (7) Morbid obesity: BMI 59 (8) Hypoventilation associated with obesity: Uses up to 4 L nasal cannula oxygen at bedtime as needed Saturating normal on room air (9) HTN (hypertension): Continue home Toprol (10) BPH (benign prostatic hyperplasia): (11) Indwelling Lloyd catheter present: Continue tamsulosin, finasteride (12) DM type 2 (diabetes mellitus, type 2): Hemoglobin A1c 9.3 in January 2021 Basal/bolus insulin ordered per protocol while patient in hospital May need additional insulin coverage in setting of steroids BSG AC HS (13) Low back pain: (14) Opioid dependence: Longstanding issues with chronic pain and opioid dependence Limiting use of IV narcotics recommended Will continue with home pain regimen of 8 mg buprenorphine TID Patient requesting additional opioids due to recent fall - plan to consult pain mgmt if needed for further assistance Received 1 dose of Ultram last night for increasing pain Will not give any as needed narcotics He received 2 doses of Ultram of 50 mg over 24 hours for the last 2 days He will not be given any narcotics to go home-he was advised to contact his outpatient pain therapist/ (15) Depression with anxiety: Continue SSRI DVT Ppx: SCDs only. Holding coumadin in setting of supratherapeutic INR Code status: FULL PCP: Jamilah Dispo: Admitted to PCU. Discharge planning ordered We will discharge home at around 3 PM today Admission and Anticipated Discharge Date Admission Date: February 28, 2021 Subjective 03/01/2021 The patient was seen and examined in telemetry unit He complains to have pain in the head and also upper abdomen secondary to injury from fall He denies any increasing shortness of breath but does have wheezing No more bleeding 03/02/2021 The patient was seen and examined in telemetry unit He complains of more pain in the head and also right right upper abdomen and tells that since the fall the pain is worse He has cough with wheezing but has not been requiring any oxygen to maintain saturation more than 95% He does not have any more hematuria and no other bleeding He has had some confusion following codeine last night-we will discontinue guaifenesin with codeine and give Robitussin-DM for cough 03/03/2021 The patient was seen and examined in telemetry unit He has been complaining of more pain in the left forehead and also right upper abdomen without any local bruising He has had more shortness of breath this morning with more wheezing No more bleeding noted in urine or from other areas He will be discharged home this afternoon Review of Systems Review of Systems: All systems reviewed and are unremarkable except as noted below Respiratory: + cough and + wheezing Musculoskeletal: Complains of pain in the right forehead and also right upper abdomen Physical Exam Physical Exam: Lying in bed with some distress due to pain and shortness of breath Constitutional: well developed, well nourished, + ill appearing and + morbidly obese Eyes: PERRL, conjunctivae normal, anicteric sclerae ENMT: external ear and nose normal, oropharynx normal Neck: trachea midline, no thyromegaly Respiratory: no respiratory distress Auscultation: + diminished lung sounds and + wheezes (Bilateral wheezing); no crackles Cardiovascular: Rate/Rhythm: regular rate and regular rhythm Heart Sounds: no murmur Extremities: + edema (Bilateral leg edema with chronic skin changes) Gastrointestinal (Abdomen): Inspection/Auscultation: + abdomen distended and normal bowel sounds Percussion/Palpation: + abdomen tender (Tender right upper quadrant and epigastric area) and abdomen soft Musculoskeletal: No acute arthritis in any joint Neurologic: Alert, 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. Lymphatic: no cervical or axillary lymphadenopathy Results & Data Results & Data ([facility]) Vital Signs (Past 12 Hours) Vital Signs Temp Pulse Pulse Resp BP BP Pulse Ox 03/03/21 10:29 60 03/03/21 07:41 36.7 C 70 18 121/71 99 03/03/21 06:24 61 20 98 03/03/21 04:15 36.5 C 71 19 110/42 L 98 03/02/21 23:49 63 03/02/21 23:30 36.5 C 65 18 108/54 L 98 Medications Administered Current Inpatient Medications Acetaminophen (Acetaminophen 500 Mg Tab) 1,000 mg PO Q8H PRN PRN Reason: Pain or Fever Stop: 03/30/21 13:25 Albuterol (Albuterol Hfa 8 Gm Inhaler) 2 puffs INH Q4 PRN PRN Reason: Dyspnea Stop: 03/30/21 13:33 Albuterol (Albut/Ipratrop 3mg/0.5mg Neb 3 Ml Vial) 3 ml NEB QIDR [facility] Stop: 03/30/21 14:59 Last Admin: 03/03/21 06:24 Dose: 3 ml Documented by: Amoxicillin (Amoxicillin 500 Mg Cap) 500 mg PO TID [facility] Stop: 03/08/21 13:59 Aspirin (Aspirin 81 Mg Ectab) 81 mg PO QAM [facility] Stop: 03/31/21 08:59 Last Admin: 03/03/21 08:13 Dose: 81 mg Documented by: Atorvastatin Calcium (Atorvastatin 40 Mg Tab) 80 mg PO QPM [facility] Stop: 03/30/21 20:59 Last Admin: 03/02/21 20:17 Dose: 80 mg Documented by: Buprenorphine HCl (Buprenorphine Hcl 8 Mg Subl) 8 mg SL TID [facility] Stop: 03/30/21 13:59 Last Admin: 03/03/21 08:24 Dose: 8 mg Documented by: Cyclobenzaprine HCl (Cyclobenzaprine Hcl 10 Mg Tab) 10 mg PO BID PRN PRN Reason: Muscle Spasm Stop: 03/30/21 13:46 Last Admin: 03/03/21 09:05 Dose: 10 mg Documented by: Dextrose (Dextrose 50% 50 Ml Syringe) 25 - 50 ml IV UD PRN; Protocol PRN Reason: Hypoglycemia Protocol Stop: 03/30/21 13:36 Docusate Sodium (Docusate Sodium 100 Mg Cap) 100 mg PO BID [facility] Stop: 03/30/21 20:59 Last Admin: 03/03/21 08:24 Dose: 100 mg Documented by: Duloxetine HCl (Duloxetine Hcl 60 Mg Cap) 60 mg PO DAILY [facility] Stop: 03/31/21 08:59 Last Admin: 03/03/21 08:15 Dose: 60 mg Documented by: Famotidine (Famotidine 20 Mg Tab) 20 mg PO DAILY [facility] Stop: 03/31/21 08:59 Last Admin: 03/03/21 08:14 Dose: 20 mg Documented by: Finasteride (Finasteride 5 Mg Tab) 5 mg PO QAM [facility] Stop: 03/31/21 08:59 Last Admin: 03/03/21 08:14 Dose: 5 mg Documented by: Fluticasone Propionate (Fluticasone Propionate Na Spr 16 Gm Btl) 2 sprays HANSA DAILY [facility] Stop: 03/31/21 08:59 Last Admin: 03/03/21 08:15 Dose: 2 sprays Documented by: Fluticasone/Vilanterol (Fluticasone/Vilanterol 100/25mcg 14 Puffs/Inhaler) 1 puffs INH DAILY [facility] Stop: 03/31/21 08:59 Last Admin: 03/03/21 08:16 Dose: 1 puffs Documented by: Folic Acid (Folic Acid 1 Mg Tab) 1 mg PO QAM [facility] Stop: 03/31/21 08:59 Last Admin: 03/03/21 08:12 Dose: 1 mg Documented by: Gabapentin (Gabapentin 800 Mg Tab) 800 mg PO TID [facility] Stop: 03/30/21 13:59 Last Admin: 03/03/21 08:14 Dose: 800 mg Documented by: Glucagon (Glucagon For Inj 1 Mg Vial) 1 mg SQ UD PRN; Protocol PRN Reason: Hypoglycemia Protocol Stop: 03/30/21 13:36 Glucose (Glucose 10 Tabs/Tube) 4 - 8 tabs PO UD PRN; Protocol PRN Reason: Hypoglycemia Protocol Stop: 03/30/21 13:36 Glucose (Glucose 40% Gel 15 Gm Tube) 15 - 30 gm PO UD PRN; Protocol PRN Reason: Hypoglycemia Protocol Stop: 03/30/21 13:36 Guaifenesin/Dextromethorphan (Guaifenesin/Dextrom Syrup 200mg/20mg 10ml Udc) 10 ml PO Q6H PRN PRN Reason: Cough Stop: 04/01/21 10:40 Last Admin: 03/03/21 02:26 Dose: 10 ml Documented by: Hydroxyzine HCl (Hydroxyzine Hcl 25 Mg Tab) 25 mg PO QID PRN PRN Reason: Anxiety Stop: 03/30/21 13:33 Last Admin: 03/03/21 08:13 Dose: 25 mg Documented by: Furosemide 40 mg/ Syringe 4 mls @ 4 mls/min IV [id number] [facility] Stop: 03/30/21 16:59 Last Admin: 03/03/21 08:13 Dose: 4 mls/min Documented by: Insulin Aspart (Insulin Aspart 100 Units/Ml 3 Ml Pen) 0 units SC ACHS [facility] Stop: 03/30/21 16:29 Last Admin: 03/03/21 08:32 Dose: 15 units Documented by: Insulin Glargine (Insulin Glargine Solostar 100 Units/Ml 3 Ml Pen) 0 - 25 units SC BID [facility]; Protocol Stop: 03/30/21 20:59 Last Admin: 03/03/21 08:31 Dose: 15 units Documented by: Isosorbide Mononitrate (Isosorbide [place] Extended Rel 30 Mg Tabcr) 30 mg PO DAILY [facility] Stop: 03/31/21 08:59 Last Admin: 03/03/21 08:12 Dose: 30 mg Documented by: Lactobacillus Acidoph/Casei/Rhamnos (Advanced Probiotic 1250 Mg Capsule) 2 cap PO DAILY [facility] Stop: 03/31/21 08:59 Last Admin: 03/03/21 08:15 Dose: 2 cap Documented by: Lorazepam (Lorazepam 0.5 Mg Tab) 0.5 mg PO Q8 PRN PRN Reason: Anxiety Stop: 03/30/21 13:33 Last Admin: 03/03/21 08:24 Dose: 0.5 mg Documented by: Methenamine Hippurate (Methenamine Hippurate 1 Gm Tab) 1 gm PO DAILY [facility] Stop: 03/31/21 08:59 Last Admin: 03/03/21 08:14 Dose: 1 gm Documented by: Metoprolol Succinate (Metoprolol Succ 25mg Ext Rel Tab) 75 mg PO BID [facility] Stop: 03/30/21 20:59 Last Admin: 03/03/21 08:14 Dose: 75 mg Documented by: Miscellaneous (Carbohydrates For Hypoglycemia ) 15 - 30 gm PO UD PRN PRN Reason: Hypoglycemia Protocol Stop: 03/30/21 13:36 Miscellaneous (Remove Nicoderm Patch) 1 ea N/A DAILY@0259 [facility] Stop: 03/31/21 08:58 Last Admin: 03/03/21 02:28 Dose: 1 ea Documented by: Nicotine (Nicotine 21 Mg/24 Hr Tdsy) 21 mg TD Q24H [facility] Stop: 03/31/21 02:59 Last Admin: 03/03/21 02:27 Dose: 21 mg Documented by: Nitroglycerin (Nitroglycerin Sl 0.4 Mg/Tab Tab) 0.4 mg SL Q5M PRN PRN Reason: CHEST PAIN Stop: 03/30/21 13:33 Nystatin (Nystatin Powder 15gm Btl) 1 appln EXT TID PRN PRN Reason: Skin Irritation Stop: 03/30/21 13:33 Ondansetron HCl (Ondansetron Inj 2 Mg/Ml 2 Ml Vial) 4 mg IV Q6H PRN PRN Reason: Nausea Stop: 03/30/21 13:25 Pantoprazole Sodium (Pantoprazole 40 Mg Tab) 40 mg PO DAILYBB [facility] Stop: 03/31/21 06:29 Last Admin: 03/03/21 06:09 Dose: 40 mg Documented by: Polyethylene Glycol (Polyethylene (Miralax) 17 Gm Pack) 17 gm PO DAILY PRN PRN Reason: Constipation Stop: 03/30/21 13:25 Last Admin: 03/03/21 08:24 Dose: 17 gm Documented by: Potassium Chloride (Potassium Chloride Crtab 20 Meq Tabcr) 20 meq PO BID [facility] Stop: 03/30/21 20:59 Last Admin: 03/03/21 08:24 Dose: 20 meq Documented by: Prednisone (Prednisone 20 Mg Tab) 40 mg PO DAILY [facility] Stop: 03/31/21 08:59 Last Admin: 03/03/21 08:16 Dose: 40 mg Documented by: Promethazine HCl (Promethazine Hcl 25 Mg Tab) 25 mg PO Q6H PRN PRN Reason: Nausea And Vomiting Stop: 03/31/21 02:52 Last Admin: 03/02/21 02:57 Dose: 25 mg Documented by: Sennosides (Senna 8.6 Mg Tab) 8.6 mg PO DAILY PRN PRN Reason: Constipation Stop: 03/30/21 13:33 Spironolactone (Spironolactone 25 Mg Tab) 25 mg PO QAM [facility] Stop: 03/31/21 08:59 Last Admin: 03/03/21 08:14 Dose: 25 mg Documented by: Tamsulosin HCl (Tamsulosin Hcl 0.4 Mg Cap) 0.4 mg PO QAM [facility] Stop: 03/31/21 08:59 Last Admin: 03/03/21 08:15 Dose: 0.4 mg Documented by: Umeclidinium Mccoy (Umeclidinium Mccoy 62.5mcg/Blister 7 Puffs/Inhaler) 1 puffs INH QAM [facility] Stop: 03/31/21 08:59 Last Admin: 03/03/21 08:17 Dose: 1 puffs Documented by: Warfarin Sodium (Warfarin Sod 2.5 Mg Tab) 2.5 mg PO [id number] [facility] Stop: 04/01/21 15:59 Last Admin: 03/02/21 17:15 Dose: 2.5 mg Documented by: Warfarin Sodium (Warfarin Sod 5 Mg Tab) 5 mg PO [id number] [facility] Stop: 04/02/21 15:59 (1) Hematuria Hematuria type: gross Qualified Code(s): R31.0 - Gross hematuria (2) HTN (hypertension) Hypertension type: essential hypertension Qualified Code(s): I10 - Essential (primary) hypertension (3) Low back pain Back pain laterality: unspecified Chronicity: unspecified Sciatica presence: unspecified whether sciatica present Qualified Code(s): M54.5 - Low back pain
[2021-03-03] MEDS ORDERED: HYDROmorphone INJ 1 MG/ML SYRINGE IV STA (13:55)
[2021-03-03] MEDS ORDERED: AMOXICILLIN 500 MG CAP PO SCH (14:00)
[2021-03-03] MEDS ORDERED: WARFARIN SOD 5 MG TAB PO SCH (16:00)
--- NOTE | 2021-03-04 07:21 | Discharge Summary ---
Date of Service March 04, 2021 Admission HPI Per Admitting Provider This is a 50-year-old male with PMH of history of recurrent PE on coumadin, complicated bronchitis/COPD, history of recurrent UTIs secondary to BPH with chronic indwelling Lloyd catheter on chronic methenamine suppression, DM II, history of traumatic subdural hematoma/subarachnoid hemorrhage in the setting of Coumadin coagulopathy, history of chronic diastolic heart failure (EF 55-60%, TTE 2020), CAD, HTN, HLD, chronic pain on Subutex, history of drug-seeking behavior as per records, ongoing tobacco abuse and other medical problems listed below who presents after fall at home yesterday. Patient was attempting to fix grandson's chair when he fell forward, striking his right forehead on the ground. States it was not a very far distance to fall. Endorses brief loss of consciousness. Since the fall, patient has noticed some bleeding from right ear as well as a bloody nose. Also notes darker urine than usual and Lloyd catheter. Did have catheter exchanged yesterday following the fall. Denies headache or lightheadedness. No fever, chills, sore throat or congestion. No acute bleeding from ear or nose during time of evaluation. Denies chest pain. Has increased shortness of breath and wheezing. Does endorse 12 pound weight gain over the past 5 days. Denies any nausea, vomiting. Continues to have intermittent abdominal pain on the right side that radiates towards back that is been present for months. Continues to have chronic back pain improved from sitting on the side of the bed. noted presence of blood mixed in with bowel movement while assisting him with last toileting episode. Denies any diarrhea. States that he is taking all medications as prescribed. Admission Exam Per Admitting Provider Physical Exam: General Appearance: Vitals as above, NAD, sitting up on side of bed, morbidly obese, conversing easily Head: normocephalic, contusion noted on R forehead, mildly tender to palpation Eyes: normal inspection, PERRL, conjunctivae normal, anicteric sclerae ENT: external ear and nose normal, R ear canal with dried blood. No evidence of trauma or bleeding to TM Neck: normal visual inspection, trachea midline, no thyromegaly Respiratory: normal respiratory effort, bibasilar rales, scattered expiratory wheezing. No accessory muscle use Cardiovascular: regular rate, rhythm, no murmur appreciated, normal peripheral pulses, 1+ BLE edema. Vessels: no JVD Chest: normal inspection of chest Abdomen/GI: normal bowel sounds, soft, nontender, no hepatosplenomegaly : Lloyd in place draining tea colored urine Extremities/Musculoskeletal: no cyanosis or clubbing, extremities motor strength 5/5 Neurologic: PERRL, EOMI, accommodation nl, no face palsy, no dysarthria, CN's II-XI intact bilaterally and moves all extremities Psychiatric: A+Ox3, euthymic affect Skin: no rashes, normal color, warm/dry Principal Diagnosis Fall without significant injury, supratherapeutic INR, hematuria-resolved, UTI- indwelling Lloyd catheter, COPD with mild exacerbation, type 2 diabetes, hypertension Discharge Exam Constitutional well developed, well nourished, + ill appearing and + morbidly obese Eyes PERRL, conjunctivae normal, anicteric sclerae ENMT external ear and nose normal, oropharynx normal Neck trachea midline, no thyromegaly Respiratory no respiratory distress Auscultation: + diminished lung sounds and + wheezes (Bilateral wheezing); no crackles Cardiovascular Rate/Rhythm: regular rate and regular rhythm Heart Sounds: no murmur Extremities: + edema (Bilateral leg edema with chronic skin changes) Gastrointestinal (Abdomen) Inspection/Auscultation: + abdomen distended and normal bowel sounds Percussion/Palpation: + abdomen tender (Tender right upper quadrant and epigastric area) and abdomen soft Lymphatic no cervical or axillary lymphadenopathy Discharge Data Allergies Allergy/AdvReac Type Severity Reaction Status Date / Time fentanyl Allergy Intermediate RASH/HIVES/SKIN Verified 02/28/21 10:25 REDNESS naloxone AdvReac Severe extremely Verified 02/28/21 10:25 sick ibuprofen AdvReac Intermediate Nausea Verified 02/28/21 10:25 valproic acid AdvReac Intermediate PANCREATITS Verified 02/28/21 10:25 Consultations 02/28/21 11:20 ED Decision to Admit Stat Ordered Studies 02/28/21 09:52 CT head/brain wo con Stat Hospital Course (1) Fall: No significant injury Complains some headache and pain in right upper quadrant We will give a dose of Ultram again today He has been having more pain with movement-we will give 1mg dose of Dilaudid IV before discharge (2) Supratherapeutic INR: This is a 50-year-old male with PMH of history of recurrent PE on coumadin, complicated bronchitis/COPD, history of recurrent UTIs secondary to BPH with chronic indwelling Lloyd catheter on chronic methenamine suppression, DM II, history of traumatic subdural hematoma/subarachnoid hemorrhage in the setting of Coumadin coagulopathy, history of chronic diastolic heart failure (EF 55-60%, TTE 2020), CAD, HTN, HLD, chronic pain on Subutex, history of drug-seeking behavior as per records, ongoing tobacco abuse and other medical problems listed below who presents after fall at home yesterday. Presenting in setting of fall yesterday with bruise on forehead, bleeding from R EAC and nose on presentation, also with hematuria INR > 10, on coumadin for [facility]itentiary anticoagulation for h/o PE Given 10mg IV vitamin K in the ED No active bleeding at time of evaluation Mentating at baseline Vital signs stable. Hemoglobin at baseline of 14 CT head without acute intracranial abnormality Hold Coumadin Hemoglobin did not drop significantly Hematuria and right ear bleeding have stopped INR came down to just about 3 from 10 INR today is 2.0 Continue with Coumadin-advised to have INR checked in 2 days (3) Hematuria: Tea colored urine in setting of supratherapeutic INR Underwent catheter change yesterday Continue to monitor H/H Reversing INR No more hematuria and INR seems to be just over 3 today Urine culture showed Enterococcus faecalis infection We will give amoxicillin for a total of 7 days given the history of permanent catheter Denies any fever and no chills (4) History of pulmonary embolism: Coumadin on hold due to supratherapeutic INR. See above Will restart Coumadin from tomorrow (5) Decompensated heart failure: Endorsing 12 pound weight gain in the past 5 days with increased shortness of breath Chest x-ray technically limited secondary to morbid obesity but mild pulmonary vascular congestion present Given 40 mg IV Lasix in ED Plan to continue diuresis with 40 mg IV Lasix twice daily Strict intake and output with Lloyd catheter in place Daily weights Low-sodium diet (6) COPD exacerbation: Mild COPD exacerbation in setting of ongoing tobacco use Saturating 91% on room air. Uses up to 4 L nasal cannula oxygen at bedtime as needed Scattered wheezing, improved after breathing treatment in ER DuoNeb every 4 HR, given Solu-Medrol 40 mg IV x1, start prednisone course 40 mg daily tomorrow Still has wheezing but has not been requiring any oxygen We will continue prednisone for 5 days in total and continue his other usual medications Has wheezing and cough-we will start Robitussin-DM We will give rapid tapering of steroid on discharge (7) Morbid obesity: BMI 59 (8) Hypoventilation associated with obesity: Uses up to 4 L nasal cannula oxygen at bedtime as needed Saturating normal on room air (9) HTN (hypertension): Continue home Toprol (10) BPH (benign prostatic hyperplasia): (11) Indwelling Lloyd catheter present: Continue tamsulosin, finasteride (12) DM type 2 (diabetes mellitus, type 2): Hemoglobin A1c 9.3 in January 2021 Basal/bolus insulin ordered per protocol while patient in hospital May need additional insulin coverage in setting of steroids BSG AC HS (13) Low back pain: (14) Opioid dependence: Longstanding issues with chronic pain and opioid dependence Limiting use of IV narcotics recommended Will continue with home pain regimen of 8 mg buprenorphine TID Patient requesting additional opioids due to recent fall - plan to consult pain mgmt if needed for further assistance Received 1 dose of Ultram last night for increasing pain Will not give any as needed narcotics He received 2 doses of Ultram of 50 mg over 24 hours for the last 2 days He will not be given any narcotics to go home-he was advised to contact his outpatient pain therapist/ (15) Depression with anxiety: Continue SSRI DVT Ppx: SCDs only. Holding coumadin in setting of supratherapeutic INR Code status: FULL PCP: Jamilah Dispo: Admitted to PCU. Discharge planning ordered We will discharge home at around 3 PM today Total Time Total Time Spent Total Time Spent (In Minutes): 40 minutes Total Time Includes: Examination of the Patient, Discharge Planning, Medication Reconciliation and Communication With Other Providers Discharge Plan Discharge Items Patient Disposition: Home - Home Health Services Reason For Visit: FALL,HEMATURIA Discharge Diagnosis: Fall without significant injury, supratherapeutic INR, hematuria-resolved, UTI- indwelling Lloyd catheter, COPD with mild exacerbation, type 2 diabetes, hypertension Condition on Discharge: Fair Activity: Resume your previous activity Non-emergency contact: Primary Care Provider Call non-emergency contact if: you have any medication questions and your symptoms worsen Follow-up/Referrals: Roberto Askew MD [Primary Care Provider] - (Date & Time 03/05/2021 11:00 AM Provider Madina Pollock MD Department General Internal Medicine [facility] ) Diet: Carb Consistent or DM2 and Low Sodium (2gm) Fluids: 1500ml (6 cups) Addtl Attending Provider Instructions: Please take extra precaution to avoid falls No change in your current medication Continue antibiotic for 7 days Please keep regular follow-up appointment with your PCP and to coagulation clinic-to monitor INR and to get the dose of Coumadin accordingly Please have your INR checked on 03/05/2021. Pending Studies at Discharge: No Stand-Alone Forms: My [employer], Smoking Cessation Medications and DC Order Prescriptions: New amoxicillin 500 mg Capsule 500 mg PO TID Qty: 20 RF: 0 prednisone 10 mg tablet 10 mg PO UD Qty: 18 RF: 0 Lactinex 1 million cell tablet,chewable 1 tab PO TID Qty: 30 RF: 0 Continued ondansetron HCl [Zofran] 4 mg tablet 4 mg PO Q8 PRN (Reason: Nausea And Vomiting) Qty: 30 RF: 0 polyethylene glycol 3350 [Miralax] 17 gram powder in packet 17 g PO QAM RF: 0 nitroglycerin [Nitrostat] 0.4 mg tablet, sublingual 0.4 mg Sublingual DIRECTED PRN (Reason: CHEST PAIN) RF: 0 nystatin 100,000 unit/gram Powder 1 applic TOPICAL TID PRN (Reason: Skin Irritation) RF: 0 cyclobenzaprine 10 mg Tablet 10 mg PO BID PRN (Reason: Muscle Spasm) RF: 0 ipratropium-albuterol 0.5 mg-3 mg(2.5 mg base)/3 mL Solution For Nebulization 3 ml INHALATION Q6H PRN (Reason: Shortness Of Breath Or Wheezing) RF: 0 docusate sodium 100 mg Capsule 100 mg PO BID RF: 0 Lactinex 1 million cell Tablet,Chewable 1 tab PO BID RF: 0 duloxetine 60 mg capsule,delayed release(DR/EC) 60 mg PO DAILY RF: 0 famotidine 20 mg tablet 20 mg PO DAILY RF: 0 methenamine hippurate 1 gram tablet 1 g PO DAILY RF: 0 hydroxyzine HCl 25 mg tablet 25 mg PO QID PRN (Reason: Anxiety) RF: 0 fluticasone propionate 50 mcg/actuation spray,suspension 2 spray Intranasal DAILY RF: 0 aspirin [Ecotrin Low Strength] 81 mg tablet,delayed release (DR/EC) 81 mg PO QAM RF: 0 Spiriva with HandiHaler 18 mcg capsule, w/inhalation device 1 puff inhalation QAM RF: 0 finasteride 5 mg tablet 5 mg PO QAM RF: 0 tamsulosin [Flomax] 0.4 mg Capsule 0.4 mg PO QAM RF: 0 metoprolol succinate 50 mg Tablet Extended Release 24 Hr 75 mg PO BID RF: 0 spironolactone 25 mg Tablet 25 mg PO QAM RF: 0 atorvastatin 80 mg tablet 80 mg PO QPM RF: 0 sennosides [senna] 8.6 mg Tablet 8.6 mg PO DAILY PRN (Reason: Constipation) RF: 0 folic acid 1 mg Tablet 1 mg PO QAM RF: 0 furosemide [Lasix] 40 mg tablet 40 mg PO BID RF: 0 lorazepam 0.5 mg tablet 0.5 mg PO Q8 PRN (Reason: Anxiety) RF: 0 potassium chloride 20 mEq Tablet Extended Release 20 meq PO BID RF: 0 albuterol sulfate 90 mcg/actuation Hfa Aerosol Inhaler 2 puff INHALATION Q4 PRN (Reason: Dyspnea) RF: 0 omeprazole 20 mg Capsule,Delayed Release(Dr/Ec) 20 mg PO DAILYBB RF: 0 gabapentin 800 mg tablet 800 mg PO TID RF: 0 warfarin 5 mg tablet 0 mg PO DIRECTED RF: 0 buprenorphine HCl 8 mg tablet, sublingual 8 mg SUBLINGUAL TID RF: 0 isosorbide mononitrate 30 mg Tablet Extended Release 24 Hr 30 mg PO DAILY RF: 0 glipizide 10 mg tablet 10 mg PO BID RF: 0 Lantus Solostar U-100 Insulin 100 unit/mL (3 mL) Insulin Pen 50 unit SC HS 30 Days Qty: 15 RF: 3 Breo Ellipta 100-25 mcg/dose Blister With Device 1 ea inhalation DAILY Qty: 28 RF: 2 (DME) insulin admin supplies Insulin Pen See Rx Instructions .ROUTE .MEDSUPPLY Qty: 1 RF: 0 Discharge Orders: Discharge Order (Routine); Ordered 03/03/21 Ordered By: Augustus Vasquez Admission Data Admit Date/Time: 02/28/21 11:29 Attending Provider: Augustus Vasquez Admit Provider: Augustus Vasquez Primary Care Provider: Roberto Askew Other Providers: [facility] ; [facility] ; Augustus Vasquez Other Interventions: Discharge Summary Assessment (RN) Last Done: 03/03/21 15:12
== END 2021-03-03 15:00 | disposition home health service (06) | DRG 696 ==
LOC: ED 09:16 → EDINP 11:29 → 2E 16:20

== ENCOUNTER 2021-05-02 20:31 | Inpatient (IN) ==
[2021-05-02] MEDS ORDERED: ACETAMINOPHEN 1,000 MG/100 ML VIAL IV STA (20:46)
--- NOTE | 2021-05-02 20:46 | Emergency Department Note ---
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 Mononitrate (Isosorbide Winston Extended Rel 30 Mg Tabcr) 30 mg PO DAILY EMPERATRIZ Stop: 06/02/21 08:59 Last Admin: 05/05/21 09:12 Dose: 30 mg Documented by: [id number] Admin: 05/04/21 08:15 Dose: 30 mg Documented by: [id number] Admin: 05/03/21 07:44 Dose: 30 mg Documented by: [id number] Lactobacillus Acidoph/Casei/Rhamnos (Advanced Probiotic 1250 Mg Capsule) 2 cap PO BID [facility] Stop: 06/02/21 08:59 Last Admin: 05/05/21 20:15 Dose: 2 cap Documented by: [id number] Admin: 05/05/21 09:12 Dose: 2 cap Documented by: [id number] Admin: 05/04/21 21:29 Dose: 2 cap Documented by: [id number] Admin: 05/04/21 08:13 Dose: 2 cap Documented by: [id number] Admin: 05/03/21 20:22 Dose: 2 cap Documented by: [id number] Admin: 05/03/21 07:43 Dose: 2 cap Documented by: [id number] Lidocaine (Lidocaine 5% 1 Patch) 1 patch TD QAM [facility]MPERATRIZ Stop: 06/02/21 11:29 Last Admin: 05/05/21 09:11 Dose: Not Given Documented by: [id number] Admin: 05/04/21 08:17 Dose: Not Given Documented by: [id number] Admin: 05/03/21 12:26 Dose: Not Given Documented by: [id number] Lorazepam (Lorazepam 0.5 Mg Tab) 0.5 mg PO Q8 PRN PRN Reason: Anxiety Stop: 06/02/21 02:45 Last Admin: 05/05/21 20:13 Dose: 0.5 mg Documented by: [id number] Admin: 05/04/21 21:19 Dose: 0.5 mg Documented by: [id number] Admin: 05/03/21 06:24 Dose: 0.5 mg Documented by: [id number] Metoprolol Succinate (Metoprolol Succ 25mg Ext Rel Tab) 75 mg PO BID [facility] Stop: 06/02/21 06:59 Last Admin: 05/05/21 20:16 Dose: 75 mg Documented by: [id number] Admin: 05/05/21 09:12 Dose: 75 mg Documented by: [id number] Admin: 05/04/21 21:24 Dose: 75 mg Documented by: [id number] Admin: 05/04/21 08:11 Dose: 75 mg Documented by: [id number] Admin: 05/03/21 20:21 Dose: 75 mg Documented by: [id number] Admin: 05/03/21 07:44 Dose: 75 mg Documented by: [id number] Miscellaneous (Remove Nicoderm Patch) 1 ea N/A DAILY@0859 [facility] Stop: 06/03/21 08:58 Last Admin: 05/05/21 09:14 Dose: 1 ea Documented by: [id number] Admin: 05/04/21 08:12 Dose: 1 ea Documented by: [id number] Miscellaneous (Remove Lidoderm Patch) 1 ea N/A DAILY@2100 [facility] Stop: 06/02/21 20:59 Last Admin: 05/05/21 20:16 Dose: Not Given Documented by: [id number] Admin: 05/04/21 21:29 Dose: Not Given Documented by: [id number] Admin: 05/03/21 20:34 Dose: Not Given Documented by: [id number] Nicotine (Nicotine 21 Mg/24 Hr Tdsy) 21 mg TD QAM [facility] Stop: 06/02/21 02:59 Last Admin: 05/05/21 09:15 Dose: 21 mg Documented by: [id number] Admin: 05/04/21 08:27 Dose: 21 mg Documented by: [id number] Admin: 05/03/21 04:45 Dose: 21 mg Documented by: [id number] [facility] 40 Mg [facility] Stop: 06/02/21 06:29 Last Admin: 05/06/21 05:57 Dose: 40 mg Documented by: [id number] Admin: 05/05/21 05:21 Dose: 40 mg Documented by: [id number] Admin: 05/04/21 06:10 Dose: 40 mg Documented by: [id number] Admin: 05/03/21 06:07 Dose: 40 mg Documented by: [id number] Polyethylene Glycol (Polyethylene (Miralax) 17 Gm Pack) 17 gm PO [facility] Stop: 06/02/21 08:59 Last Admin: 05/05/21 09:16 Dose: 17 gm Documented by: [id number] Admin: 05/04/21 08:19 Dose: 17 gm Documented by: [id number] Admin: 05/03/21 07:43 Dose: 17 gm Documented by: [id number] Sennosides (Senna 8.6 Mg Tab) 8.6 mg PO DAILY PRN PRN Reason: Constipation Stop: 06/02/21 02:45 Last Admin: 05/05/21 09:13 Dose: 8.6 mg Documented by: [id number] Admin: 05/04/21 08:14 Dose: 8.6 mg Documented by: [id number] Spironolactone (Spironolactone 25 Mg Tab) 25 mg PO [facility] Stop: 06/03/21 08:59 Last Admin: 05/05/21 09:13 Dose: 25 mg Documented by: [id number] Admin: 05/04/21 08:27 Dose: 25 mg Documented by: [id number] Tamsulosin HCl (Tamsulosin Hcl 0.4 Mg Cap) 0.4 mg PO [facility] Stop: 06/02/21 08:59 Last Admin: 05/05/21 09:12 Dose: 0.4 mg Documented by: [id number] Admin: 05/04/21 08:14 Dose: 0.4 mg Documented by: [id number] Admin: 05/03/21 07:43 Dose: 0.4 mg Documented by: [id number] Umeclidinium [place] (Umeclidinium [place] 62.5mcg/Blister 7 Puffs/Inhaler) 1 puffs INH [facility] Stop: 06/02/21 08:59 Last Admin: 05/05/21 09:15 Dose: 1 puffs Documented by: [id number] Admin: 05/04/21 08:36 Dose: 1 puffs Documented by: [id number] Admin: 05/03/21 07:42 Dose: 1 puffs Documented by: [id number] Warfarin Sodium (Warfarin Sod 5 Mg Tab) 5 mg PO DAILY@1600 [facility] Stop: 06/04/21 15:59 Last Admin: 05/05/21 15:13 Dose: 5 mg Documented by: [id number] Discontinued Medications Diphenhydramine HCl (Diphenhydramine 50 Mg/Ml Vial) 25 mg IV NOW STA Stop: 05/02/21 21:50 Last Admin: 05/02/21 22:31 Dose: 25 mg Documented by: [id number] Diphenhydramine HCl (Diphenhydramine 50 Mg/Ml Vial) 25 mg IV NOW STA Stop: 05/03/21 07:13 Last Admin: 05/03/21 07:42 Dose: 25 mg Documented by: [id number] Droperidol (Droperidol 5 Mg/2 Ml Vial) 0.625 mg IV ONE STA Stop: 05/02/21 21:50 Last Admin: 05/02/21 22:31 Dose: 0.625 mg Documented by: [id number] Furosemide (Furosemide 40 Mg Tab) 40 mg PO NOW STA Stop: 05/03/21 21:51 Last Admin: 05/03/21 22:25 Dose: 40 mg Documented by: [id number] Gadobutrol (Gadobutrol 65ml Vial) 19 ml IV ONCE ONE Stop: 05/04/21 15:13 Last Admin: 05/04/21 14:35 Dose: 19 ml Documented by: [id number] Acetaminophen (Ofirmev) 1,000 mg in 100 mls @ 400 mls/hr IV NOW STA Stop: 05/02/21 21:00 Last Infusion: 05/02/21 22:06 Dose: 0 mls/hr Documented by: [id number] Admin: 05/02/21 21:47 Dose: 400 mls/hr Documented by: [id number] Piperacillin Sod/Tazobactam Sod (Zosyn) 4.5 gm in 120 mls @ 240 mls/hr IV NOW ONE Stop: 05/03/21 01:22 Last Infusion: 05/03/21 02:07 Dose: 0 mls/hr Documented by: [id number] Admin: 05/03/21 01:23 Dose: 240 mls/hr Documented by: [id number] Doxycycline Hyclate 100 mg/ (Dextrose) 110 mls @ 50 mls/hr IV NOW STA Stop: 05/03/21 03:11 Last Infusion: 05/03/21 04:35 Dose: 0 mls/hr Documented by: [id number] Admin: 05/03/21 02:08 Dose: 50 mls/hr Documented by: [id number] Sodium Chloride (Nss 1000ml) 1,000 mls @ 60 mls/hr IV .[id number] ONE Stop: 05/03/21 19:28 Last Infusion: 05/05/21 07:00 Dose: 0 mls/hr Documented by: [id number] Infusion: 05/03/21 20:35 Dose: 0 mls/hr Documented by: [id number] Admin: 05/03/21 03:30 Dose: 60 mls/hr Documented by: [id number] Daptomycin 500 mg/ Syringe 10 mls @ 5 mls/min IV Q24H EMPERATRIZ; Protocol Stop: 05/10/21 05:59 Last Admin: 05/03/21 06:05 Dose: 5 mls/min Documented by: [id number] Cefepime HCl 2,000 mg/ Syringe 20 mls @ 5 mls/min IV Q12H EMPERATRIZ; Protocol Stop: 05/10/21 05:59 Last Admin: 05/03/21 06:06 Dose: 5 mls/min Documented by: [id number] Magnesium Sulfate/Dextrose (Magnesium Sulfate / D5w) 1 gm in 100 mls @ 50 mls/hr IV ONE ONE Stop: 05/03/21 09:59 Last Infusion: 05/03/21 10:06 Dose: 0 mls/hr Documented by: [id number] Admin: 05/03/21 07:54 Dose: 50 mls/hr Documented by: [id number] Methylprednisolone 20 mg/ (Syringe) 0.32 mls @ 1.5 mls/min IV NOW STA Stop: 05/03/21 07:41 Last Admin: 05/03/21 07:55 Dose: 1.5 mls/min Documented by: [id number] Ipratropium [place] (Ipratropium [place] Neb Soln 0.02% 2.5 Ml Vial) 0.5 mg INH NOW STA Stop: 05/03/21 07:04 Last Admin: 05/03/21 08:52 Dose: Not Given Documented by: [id number] Levalbuterol HCl (Levalbuterol 1.25mg/0.5ml Neb) 1.25 mg INH NOW STA Stop: 05/03/21 07:04 Last Admin: 05/03/21 08:52 Dose: Not Given Documented by: [id number] Levalbuterol HCl (Levalbuterol Tartrate 15 Gm Hfa.Aer.Ad) 2 puffs INH NOW STA Stop: 05/03/21 07:13 Last Admin: 05/03/21 07:24 Dose: 2 puffs Documented by: [id number] Metoprolol Succinate (Metoprolol Succ 50mg Ext Rel Tab) 50 mg PO NOW STA Stop: 05/03/21 01:40 Last Admin: 05/03/21 02:17 Dose: Not Given Documented by: [id number] Phytonadione (Phytonadione 5 Mg Tab) 2.5 mg PO NOW STA Stop: 05/03/21 01:45 Last Admin: 05/03/21 06:19 Dose: 2.5 mg Documented by: [id number] Tramadol HCl (Tramadol Hcl 50 Mg Tablet) 50 mg PO TODAY@1000 [facility]ATRI[facility] Stop: 05/04/21 16:00 Last Admin: 05/04/21 11:37 Dose: 50 mg Documented by: [id number] Tramadol HCl (Tramadol Hcl 50 Mg Tablet) 50 mg PO NOW STA Stop: 05/03/21 18:59 Last Admin: 05/03/21 20:19 Dose: 50 mg Documented by: [id number] Tramadol HCl (Tramadol Hcl 50 Mg Tablet) 50 mg PO NOW STA Stop: 05/04/21 16:38 Last Admin: 05/04/21 16:48 Dose: 50 mg Documented by: [id number] Tramadol HCl (Tramadol Hcl 50 Mg Tablet) 50 mg PO NOW ONE Stop: 05/05/21 10:46 Last Admin: 05/05/21 10:52 Dose: 50 mg Documented by: [id number] Tramadol HCl (Tramadol Hcl 50 Mg Tablet) 50 mg PO ONE ONE Stop: 05/05/21 21:01 Last Admin: 05/05/21 20:38 Dose: 50 mg Documented by: [id number] Warfarin Sodium (Warfarin Sod 5 Mg Tab) 5 mg PO NOW ONE Stop: 05/04/21 16:41 Last Admin: 05/04/21 16:58 Dose: 5 mg Documented by: [id number] Discharge Plan Visit Data Chief Complaint: Foot Injury/Pain Stated Complaint: rt. 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
--- NOTE | 2021-05-02 21:05 | XRay Report ---
XR foot RT min 3V routine CLINICAL HISTORY: Pt c/o Rt foot pain COMPARISON STUDY: Right foot 01/14/2021. FINDINGS: There is a cluster of punctate metallic shrapnel within the midfoot. There is an old nonuni andrew midshaft third metacarpal fracture. This remains unchanged. There is mild soft tissue swelling wi thin the dorsum of the foot. Shortened third digit due to the old fracture, unchanged. No acute fract ure or dislocation within the right foot. The Lisfranc joint is intact. No erosive changes identified . IMPRESSION: 1. Old posttraumatic changes at the right third metatarsal. 2. No acute fracture or dislocation within the right foot. 3. Dorsal soft tissue swelling. ACT 112: Negative or not required by law. Electronically signed by: Vidal Keller M.D. 05/02/2021 9:03 PM
[2021-05-02 21:41] LABS: Appearance Urine Clear (Clear); Bacteria Urine Automated 2+ (Negative); Bilirubin Urine Negative (Negative); Blood Urine 2+ (Negative); Color Urine Dark Yellow; Epithelial Cell Urine Auto 0-5 /lpf (0-5); Glucose Urine UA Negative (Negative); Ketones Urine Trace (Negative); Leukocyte Esterase Urine 2+ (Negative); Nitrite Urine Positive (Negative); RBC Urine Automated >30 /hpf (0-4); Specific Gravity Urine 1.024 (1.000-1.030); Urobilinogen Urine Negative (Negative); WBC Urine Automated >30 /hpf (0-5); pH Urine 7.5 (4.5-7.5)
[2021-05-02 21:42] LABS: Protein Urine 1+ (Negative)
[2021-05-02] MEDS ORDERED: diphenhydrAMINE 50 MG/ML VIAL IV STA (21:49)
[2021-05-02] MEDS ORDERED: DROPERIDOL 5 MG/2 ML VIAL IV STA (21:49)
[2021-05-02 21:55] LABS: Cast Urine Automated 0 /lpf (0-5)
[2021-05-02 22:37] LABS: Basophils # (auto) 0.04 K/uL (0-0.2); Basophils % (auto) 0.3 %; Eosinophils # (auto) 0.55 K/uL (0-0.5); Eosinophils % (auto) 3.5 %; Hematocrit (blood only) 46.8 % (42-52); Hemoglobin 15.2 g/dL (14.0-18.0); Immature Granulocytes # (auto) 0.05 K/uL (0.00-0.02); Immature Granulocytes % (auto) 0.3 %; Lymphocytes # (auto) 3.13 K/uL (1.2-3.4); Lymphocytes % (auto) 20.2 %; Mean Corpuscular Hemoglobin 27.7 pg (25-34); Mean Corpuscular Hgb Conc 32.5 g/dL (32-36); Mean Corpuscular Volume 85.4 fL (80-100); Mean Platelet Volume 9.6 fL (7.4-10.4); Monocytes # (auto) 1.08 K/uL (0.11-0.59); Neutrophils # (auto) 10.65 K/uL (1.4-6.5); Neutrophils % (auto) 68.7 %; Platelet Count 265 K/uL (130-400); RDW Coefficient of Variation 17.4 % (11.5-14.5); RDW Standard Deviation 54.4 fL (36.4-46.3); Red Blood Count 5.48 M/uL (4.7-6.1)
[2021-05-02 22:47] LABS: INR 3.4 (0.9-1.1); Prothrombin Time 31.5 Seconds (9.0-12.0)
[2021-05-02 23:02] LABS: Albumin Level 2.9 gm/dl (3.4-5.0); BUN Creatinine Ratio 5.8 (10-20); Creatinine Clr Calc Pharmacy 169.5 ml/min; Est GFR (African American) 116.6 ml/min; Est GFR (Non-African American) 100.6 ml/min; Potassium 4.5 mmol/L (3.5-5.1)
[2021-05-02 23:05] LABS: Albumin Globulin Ratio 0.7 (0.9-2); Bilirubin,Total 0.6 mg/dl (0.2-1); Globulin 4.4 gm/dl (2.5-4.0); Total Protein 7.3 gm/dl (6.4-8.2)
[2021-05-03 00:22] LABS: Magnesium 1.8 mg/dl (1.8-2.4)
[2021-05-03] MEDS ORDERED: PIPERACILLIN/TAZOBACTAM 4.5 GM/120 ML BAG IV ONE (00:53)
[2021-05-03] MEDS ORDERED: PIPERACILL/TAZOBAC CONSULT ACTIVE PRN ×2 (00:53→09:00)
[2021-05-03] MEDS ORDERED: DOXYCYCLINE HYCLATE 100 MG in DEXTROSE 5% 100 ML IV STA (01:00)
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
[2021-05-03] MEDS: buprenorphine HCL 8 MG SUBL SL SCH ×4 (01:23→21:45)
[2021-05-03] MEDS ORDERED: METOPROLOL SUCC 50MG EXT REL TAB PO STA (01:39)
[2021-05-03] MEDS ORDERED: PHYTONADIONE 5 MG TAB PO STA (01:44)
[2021-05-03] MEDS ORDERED: GLUCOSE 40% GEL 15 GM TUBE PO PRN (02:46)
[2021-05-03] MEDS ORDERED: XOPENEX/ATROVENT 1.25mg/0.5MG NEB COMBO NEB PRN (02:46)
[2021-05-03] MEDS ORDERED: CARBOHYDRATES FOR HYPOGLYCEMIA PO PRN (02:46)
[2021-05-03] MEDS ORDERED: GLUCAGON FOR INJ 1 MG VIAL SQ PRN (02:46)
[2021-05-03] MEDS ORDERED: DEXTROSE 50% 50 ML SYRINGE IV PRN (02:46)
[2021-05-03] MEDS ORDERED: GLUCOSE 10 TABS/TUBE PO PRN (02:46)
[2021-05-03] MEDS ORDERED: ACETAMINOPHEN 325 MG TAB PO PRN (02:46)
[2021-05-03] MEDS ORDERED: IPRATROPIUM BROMIDE NEB SOLN 0.02% 2.5 ML VIAL INH PRN (02:46)
[2021-05-03] MEDS ORDERED: LEVALBUTEROL 1.25MG/0.5ML NEB INH PRN (02:46)
[2021-05-03] MEDS ORDERED: NITROGLYCERIN SL 0.4 MG/TAB TAB SL PRN (02:46)
[2021-05-03] MEDS ORDERED: PROMETHAZINE HCL 12.5 MG in SODIUM CHLORIDE 0.9% 50 ML IV PRN (02:46)
[2021-05-03] MEDS ORDERED: SODIUM CHLORIDE 0.9% 1000ML 1,000 ML IV ONE (02:49)
[2021-05-03] MEDS: INSULIN ASPART 100 UNITS/ML 3 ML PEN SC SCH ×6 (03:20→20:23)
[2021-05-03] MEDS ORDERED: CEFEPIME CONSULT ACTIVE PRN (03:24)
[2021-05-03] MEDS: NICOTINE 21 MG/24 HR TDSY TD SCH (04:45)
[2021-05-03] MEDS ORDERED: DAPTOmycin 500 MG in SYRINGE 0 ML IV SCH (06:00)
[2021-05-03] MEDS ORDERED: CEFEPIME 2,000 MG in SYRINGE 0 ML IV SCH (06:00)
[2021-05-03] MEDS: PANTOprazole 40 MG TAB PO SCH (06:07)
[2021-05-03] MEDS: LORazepam 0.5 MG TAB PO PRN (06:24)
[2021-05-03 06:31] LABS: Basophils # (auto) 0.03 K/uL (0-0.2); Basophils % (auto) 0.2 %; Eosinophils # (auto) 0.62 K/uL (0-0.5); Eosinophils % (auto) 4.9 %; Hematocrit (blood only) 44.5 % (42-52); Hemoglobin 14.3 g/dL (14.0-18.0); Immature Granulocytes # (auto) 0.05 K/uL (0.00-0.02); Immature Granulocytes % (auto) 0.4 %; Lymphocytes # (auto) 2.87 K/uL (1.2-3.4); Lymphocytes % (auto) 22.8 %; Mean Corpuscular Hemoglobin 27.3 pg (25-34); Mean Corpuscular Hgb Conc 32.1 g/dL (32-36); Mean Corpuscular Volume 85.1 fL (80-100); Mean Platelet Volume 9.9 fL (7.4-10.4); Monocytes # (auto) 0.82 K/uL (0.11-0.59); Monocytes % (auto) 6.5 %; Neutrophils # (auto) 8.19 K/uL (1.4-6.5); Neutrophils % (auto) 65.2 %; Platelet Count 251 K/uL (130-400); RDW Coefficient of Variation 17.5 % (11.5-14.5); RDW Standard Deviation 54.8 fL (36.4-46.3); Red Blood Count 5.23 M/uL (4.7-6.1); White Blood Count 12.58 K/uL (4.8-10.8)
[2021-05-03 06:52] LABS: INR 3.8 (0.9-1.1); Prothrombin Time 34.5 Seconds (9.0-12.0)
[2021-05-03] MEDS ORDERED: XOPENEX/ATROVENT 1.25mg/0.5MG NEB COMBO NEB STA (06:55)
[2021-05-03] MEDS ORDERED: IPRATROPIUM BROMIDE NEB SOLN 0.02% 2.5 ML VIAL INH STA (07:03)
[2021-05-03] MEDS ORDERED: LEVALBUTEROL 1.25MG/0.5ML NEB INH STA (07:03)
[2021-05-03 07:07] LABS: Estimated Average Glucose 151 mg/dl; Hemoglobin A1C 6.9 % (4.5-5.6)
[2021-05-03 07:10] LABS: BUN Creatinine Ratio 7.4 (10-20); Calcium 8.8 mg/dl (8.5-10.1); Creatinine Clr Calc Pharmacy 171.8 ml/min; Est GFR (African American) 117.2 ml/min; Est GFR (Non-African American) 101.1 ml/min; Potassium 3.9 mmol/L (3.5-5.1)
[2021-05-03] MEDS ORDERED: diphenhydrAMINE 50 MG/ML VIAL IV STA (07:12)
[2021-05-03] MEDS ORDERED: LEVALBUTEROL TARTRATE 15 GM HFA.AER.AD INH STA (07:12)
--- NOTE | 2021-05-03 07:15 | Communication Note ---
Date of Service: May 03, 2021 Notified by RN around 6:35 AM of patient complaints of anxiety, shortness of breath after Daptomycin and Cefepime administration. Subsequent rash noted over upper extremities. AP Hypersensitivity reaction (Daptomycin, Cefepime administration, cannot ascertain causative medication for now given close timing of administration) Ana now Add Daptomycin and Cefepime to allergy/ADR list Doxycycline for skin soft tissue infection, Zosyn for complicated UTI to replace potential antibiotic allergens Will relay to AM provider.
[2021-05-03] MEDS ORDERED: methylPREDNISolone 20 MG in SYRINGE 0 ML IV STA (07:40)
[2021-05-03] MEDS: FLUTICASONE PROPIONATE NA SPR 16 GM BTL SCH (07:42)
[2021-05-03] MEDS: FLUTICASONE/VILANTEROL 100/25MCG 14 PUFFS/INHALER INH SCH (07:42)
[2021-05-03] MEDS: UMECLIDINIUM BROMIDE 62.5MCG/BLISTER 7 PUFFS/INHALER INH SCH (07:42)
[2021-05-03] MEDS: FAMOTIDINE 20 MG TAB PO SCH (07:43)
[2021-05-03] MEDS: FOLIC ACID 1 MG TAB PO SCH (07:43)
[2021-05-03] MEDS: GABAPENTIN 800 MG TAB PO SCH ×3 (07:43→20:21)
[2021-05-03] MEDS: ADVANCED PROBIOTIC 1250 MG CAPSULE PO SCH ×2 (07:43→20:22)
[2021-05-03] MEDS: FINASTERIDE 5 MG TAB PO SCH (07:43)
[2021-05-03] MEDS: TAMSULOSIN HCL 0.4 MG CAP PO SCH (07:43)
[2021-05-03] MEDS: POLYETHYLENE (MIRALAX) 17 GM PACK PO SCH (07:43)
[2021-05-03] MEDS: METOPROLOL SUCC 25MG EXT REL TAB PO SCH ×2 (07:44→20:21)
[2021-05-03] MEDS: DULoxetine HCL 60 MG CAP PO SCH (07:44)
[2021-05-03] MEDS: DOCUSATE SODIUM 100 MG CAP PO SCH ×2 (07:44→20:20)
[2021-05-03] MEDS: ISOSORBIDE MONO EXTENDED REL 30 MG TABCR PO SCH (07:44)
[2021-05-03] MEDS: DOXYCYCLINE HYCLATE 100 MG CAP PO SCH ×2 (07:55→20:22)
[2021-05-03] MEDS: INSULIN GLARGINE SOLOSTAR 100 UNITS/ML 3 ML PEN SC SCH ×2 (07:58→20:23)
[2021-05-03] MEDS ORDERED: MAGNESIUM SULFATE / D5W 1 GM/100 ML BAG IV ONE (08:00)
[2021-05-03] MEDS ORDERED: INSULIN GLARGINE SOLOSTAR 100 UNITS/ML 3 ML PEN SC SCH (09:00)
[2021-05-03] MEDS ORDERED: METOPROLOL SUCC 25MG EXT REL TAB PO SCH (09:00)
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
--- NOTE | 2021-05-03 10:01 | XRay Report ---
XR chest 1V portable HISTORY: 50 years-old Male sob acute shortness of breath COMPARISON: Chest radiograph of same day at 1:12 AM and also 01/23/2021 TECHNIQUE: AP view of the chest FINDINGS: Cardiomegaly with pulmonary vascular congestion. No pneumothorax, pleural effusion, airspace consolid ation or overt pulmonary edema. Chronic posttraumatic deformity of the left clavicle. Degenerative ch anges of the shoulders and spine. IMPRESSION: Cardiomegaly with pulmonary vascular congestion. ACT 112: Negative or not required by law. The above report was generated using voice recognition software. It may contain grammatical, syntax o r spelling errors. Electronically signed by: Shelton Apodaca M.D. 05/03/2021 9:59 AM
--- NOTE | 2021-05-03 10:02 | XRay Report ---
XR chest 1V portable HISTORY: 50 years-old Male sepsis acute sepsis with shortness of breath COMPARISON: Chest radiograph 02/28/2021 TECHNIQUE: Portable AP view of the chest FINDINGS: Cardiac silhouette is enlarged. There is unchanged blunting of the costophrenic angles. Mild pulmonar y vascular congestion suggested. No pneumothorax or overt pulmonary edema. Chronic posttraumatic defo rmity of the left clavicle. IMPRESSION: 1. Cardiomegaly with suggestion of pulmonary vascular congestion. 2. Unchanged blunting of the costophrenic angles. ACT 112: Negative or not required by law. The above report was generated using voice recognition software. It may contain grammatical, syntax o r spelling errors. Electronically signed by: Shelton Apodaca M.D. 05/03/2021 10:01 AM
[2021-05-03] MEDS: PIPERACILLIN/TAZOBACTAM 4.5 GM in DEXTROSE 5% 100 ML IV SCH ×3 (10:06→23:57)
[2021-05-03] MEDS ORDERED: diphenhydrAMINE Capsule 25 MG CAP PO PRN (11:20)
--- NOTE | 2021-05-03 11:56 | Electrocardiogram Report ---
Test Reason : Blood Pressure : / mmHG Vent. Rate : 077 BPM Atrial Rate : 077 BPM P-R Int : 146 ms QRS Dur : 104 ms QT Int : 406 ms P-R-T Axes : -04 033 042 degrees QTc Int : 459 ms Normal sinus rhythm Normal ECG When compared with ECG of 01-MAR-2021 02:17, Nonspecific T wave abnormality no longer present Confirmed by Da Browning ([id number]) on 05/03/2021 11:55:43 AM Referred By: Roberto Askew Confirmed By:Da Browning
[2021-05-03] MEDS: LIDOCAINE 5% 1 PATCH TD SCH (12:26)
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
[2021-05-03] MEDS: CYCLOBENZAPRINE HCL 10 MG TAB PO PRN ×2 (15:44→20:20)
[2021-05-03] MEDS ORDERED: traMADol HCL 50 MG TABLET PO STA ×2 (17:11→18:58)
[2021-05-03] MEDS ORDERED: Nursing to Pharmacy Communication SCH (18:15)
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
[2021-05-03] MEDS: hydrOXYzine HCl 25 MG TAB PO PRN (20:20)
[2021-05-03] MEDS ORDERED: FUROSEMIDE 40 MG TAB PO STA (21:50)
[2021-05-04] MEDS: PANTOprazole 40 MG TAB PO SCH (06:10)
[2021-05-04 07:40] LABS: Hematocrit (blood only) 43.9 % (42-52); Mean Corpuscular Hemoglobin 27.2 pg (25-34); Mean Corpuscular Hgb Conc 31.9 g/dL (32-36); Mean Corpuscular Volume 85.4 fL (80-100); Mean Platelet Volume 10.3 fL (7.4-10.4); Platelet Count 268 K/uL (130-400); RDW Coefficient of Variation 17.4 % (11.5-14.5); RDW Standard Deviation 54.6 fL (36.4-46.3); Red Blood Count 5.14 M/uL (4.7-6.1)
[2021-05-04] MEDS: DOCUSATE SODIUM 100 MG CAP PO SCH ×2 (08:10→21:18)
[2021-05-04] MEDS: METOPROLOL SUCC 25MG EXT REL TAB PO SCH ×2 (08:11→21:24)
[2021-05-04] MEDS: ADVANCED PROBIOTIC 1250 MG CAPSULE PO SCH ×2 (08:13→21:29)
[2021-05-04] MEDS: DOXYCYCLINE HYCLATE 100 MG CAP PO SCH ×2 (08:13→21:23)
[2021-05-04] MEDS: DULoxetine HCL 60 MG CAP PO SCH (08:13)
[2021-05-04] MEDS: SENNA 8.6 MG TAB PO PRN (08:14)
[2021-05-04] MEDS: TAMSULOSIN HCL 0.4 MG CAP PO SCH (08:14)
[2021-05-04] MEDS: FAMOTIDINE 20 MG TAB PO SCH (08:14)
[2021-05-04] MEDS: ISOSORBIDE MONO EXTENDED REL 30 MG TABCR PO SCH (08:15)
[2021-05-04] MEDS: FOLIC ACID 1 MG TAB PO SCH (08:15)
[2021-05-04] MEDS: FINASTERIDE 5 MG TAB PO SCH (08:15)
[2021-05-04] MEDS: GABAPENTIN 800 MG TAB PO SCH ×3 (08:16→21:22)
[2021-05-04] MEDS: LIDOCAINE 5% 1 PATCH TD SCH (08:17)
[2021-05-04 08:18] LABS: BUN Creatinine Ratio 14.7 (10-20); Calcium 9.4 mg/dl (8.5-10.1); Creatinine Clr Calc Pharmacy 161.6 ml/min; Est GFR (Non-African American) 96.6 ml/min
[2021-05-04] MEDS: POLYETHYLENE (MIRALAX) 17 GM PACK PO SCH (08:19)
[2021-05-04] MEDS: SPIRONOLACTONE 25 MG TAB PO SCH (08:27)
[2021-05-04] MEDS: NICOTINE 21 MG/24 HR TDSY TD SCH (08:27)
[2021-05-04] MEDS: FLUTICASONE PROPIONATE NA SPR 16 GM BTL SCH (08:29)
[2021-05-04] MEDS: FLUTICASONE/VILANTEROL 100/25MCG 14 PUFFS/INHALER INH SCH (08:29)
[2021-05-04] MEDS: UMECLIDINIUM BROMIDE 62.5MCG/BLISTER 7 PUFFS/INHALER INH SCH (08:36)
[2021-05-04] MEDS: buprenorphine HCL 8 MG SUBL SL SCH ×3 (09:19→21:18)
[2021-05-04] MEDS: PIPERACILLIN/TAZOBACTAM 4.5 GM in DEXTROSE 5% 100 ML IV SCH ×3 (09:19→23:50)
[2021-05-04] MEDS: INSULIN ASPART 100 UNITS/ML 3 ML PEN SC SCH ×4 (09:29→21:19)
[2021-05-04] MEDS: INSULIN GLARGINE SOLOSTAR 100 UNITS/ML 3 ML PEN SC SCH ×2 (09:31→21:21)
[2021-05-04 09:57] LABS: INR 1.4 (0.9-1.1); Prothrombin Time 14.2 Seconds (9.0-12.0)
[2021-05-04] MEDS ORDERED: traMADol HCL 50 MG TABLET PO SCH (10:00)
[2021-05-04] MEDS: FUROSEMIDE 40 MG TAB PO SCH ×2 (11:01→17:28)
[2021-05-04] MEDS ORDERED: GADOBUTROL 65ML VIAL IV ONE (15:12)
--- NOTE | 2021-05-04 15:44 | Magnetic Resonance Report ---
MR foot RT wo/w con HISTORY: Right foot swelling ro osteomyelitis TECHNIQUE: Multiplanar multisequence MRI of the right forefoot was performed both before and after th e intravenous administration of 19 cc of Gadavist contrast. COMPARISON STUDY: Right foot CT 05/02/2021. FINDINGS: There is dorsal subcutaneous edema within the foot. No loculated fluid collections to sugge st an abscess. Chronic nonunited fracture at the third metatarsal shaft is again noted. There are few punctate foci susceptibility artifact consistent with metallic shrapnel surrounding the fracture sit e. This remains unchanged. No areas of abnormal marrow edema or enhancement within the visualized oss eous structures to suggest osteomyelitis. There is also dorsal subcutaneous enhancement suggestive of a cellulitis. There is marked artifact within the majority of the sequences resulting in suboptimal evaluation. IMPRESSION: 1. Dorsal soft tissue edema and enhancement within the forefoot. This likely represents a cellulitis. 2. No abscess or osteomyelitis identified. 3. No change in the chronic fracture and surrounding shrapnel within the third metatarsal. No acute f racture or dislocation within the right foot. ACT 112: Negative or not required by law. Electronically signed by: Vidal Keller M.D. 05/04/2021 3:43 PM
[2021-05-04] MEDS ORDERED: traMADol HCL 50 MG TABLET PO STA (16:37)
[2021-05-04] MEDS ORDERED: WARFARIN SOD 5 MG TAB PO ONE (16:40)
[2021-05-04] MEDS: CYCLOBENZAPRINE HCL 10 MG TAB PO PRN (21:18)
[2021-05-04] MEDS: hydrOXYzine HCl 25 MG TAB PO PRN (21:19)
[2021-05-04] MEDS: LORazepam 0.5 MG TAB PO PRN (21:19)
--- NOTE | 2021-05-04 21:57 | Hospitalist Progress Note ---
Date of Service May 04, 2021 Assessment & Plan (1) Sepsis: Plan: Meet sepsis criteria on admission with tachycardia and elevated white count Possible related to UTI versus right foot cellulitis Wound culture grew Staphylococcus species Urine culture grew gram-negative bacilli and probable Enterococcus Currently on doxycycline and IV Zosyn Continue monitor closely (2) Foot ulcer, right: Plan: Present on admission with worsening right foot pain Right foot x-ray showed posttraumatic changes at the right third metatarsal. No acute fracture or dislocation within the right foot. Dorsal soft tissue swelling. Refuses to try IV Tylenol Continue gabapentin, Lidoderm patch Very high risk for narcotic abuse with multiple admissions with similar demands Patient had multiple verbal altercation with provides provider and staff in the past No acute fracture identified. 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 Mild dorsal subcutaneous edema. MRI right foot showed dorsal soft tissue edema and enhancement within the forefoot. This likely represents a cellulitis. No abscess or osteomyelitis identified. No change in the chronic fracture and surrounding shrapnel within the third metatarsal. No acute fracture or dislocation within the right foot. Wound culture grew staph aureus species Continue doxycycline IV Zosyn Will give tramadol x1 since patient was laying down on the stretcher for about 2 hours for the MRI Ortho on board Ortho discussed with patient about ORIF of the fracture can be arranged as an outpatient Patient plan to make an appointment with Ortho upon discharge from the hospital Continue PT OT Patient is interested to go to rehab since he cannot walk or put weight on his right foot Fall precaution Supratherapeutic INR: INR on admission 3.4, then increased to 3.8 Vitamin K was given by the admitting physician INR 1.4 today, Coumadin resumed today Continue monitor PT/INR UTI UA positive for nitrite and leukocyte Urine culture grew gram-negative backslash and probable Enterococcus Continue IV Zosyn and doxy Follow-up in urine sensitivity Chronic diastolic CHF (congestive heart failure): CXR showed Cardiomegaly with suggestion of pulmonary vascular congestion. Unchanged blunting of the costophrenic angles. Patient appears to be euvolemic Continue lasix, spironolactone DM type 2 (diabetes mellitus, type 2): Most recent hemoglobin A1c 6.9 Hold home oral meds NovoLog sliding scale per protocol COPD (chronic obstructive pulmonary disease): Continue home inhalers Chronic pain: Chronic pain syndrome Demands Narcotics for chronic pain despite explaining the risks and complications Currently on Subutex Refuses to try IV Tylenol Continue gabapentin, Lidoderm patch Very high risk for narcotic abuse with multiple admissions with similar demands Patient had multiple verbal altercation with provides and staff on multiple occ asions PDMP indicates multiple prescriptions for controlled substances from different providers in the past Morbid obesity: BMI: 61 Lifestyle modifications recommended DVT Px: INR 1.4, on Coumadin We will add heparin subcu until INR therapeutic Code Status Full Code Admission and Anticipated Discharge Date Admission Date: May 03, 2021 Subjective Patient was seen and examined for follow-up of right foot pain and swelling Lying in bed with no distress watching TV Patient said that he is having a lot of pain due to being lying down on the stretcher for almost 2 hours for the MRI Patient said now he is having pain in his back and right foot Patient continues asking for pain medication nonstop and he was in tear because he wants narcotic He said that he cannot put weight or walk in his right foot He is interested to go to rehab Denies any chest pain, palpitation, dizziness, shortness of breath. Physical Exam Physical Exam: General- No acute distress Head- atraumatic Eyes- PERRL, EOMI, ENT- oropharynx clear Neck- supple, no JVD Lungs- clear to auscultation Heart- regular rhythm; no murmur Abdomen- normal bowel sounds, soft, nontender Extremities- no calf tenderness, right dorsal foot with open wound, edema and erythema Neuro- alert, oriented x 3; PERRL, EOMI; no facial palsy; no dysarthria Skin- warm & dry Results & Data Results & Data ([facility]) Vital Signs (Past 12 Hours) Vital Signs Temp Pulse Resp BP BP Pulse Ox 05/04/21 19:44 37.1 C 91 H 20 136/60 92 05/04/21 17:00 36.8 C 78 18 129/61 92 05/04/21 11:53 36.9 C 78 20 132/77 94
[2021-05-05] MEDS: PANTOprazole 40 MG TAB PO SCH (05:21)
[2021-05-05 06:58] LABS: Hematocrit (blood only) 43.5 % (42-52); Hemoglobin 13.6 g/dL (14.0-18.0); Mean Corpuscular Hemoglobin 26.9 pg (25-34); Mean Corpuscular Hgb Conc 31.3 g/dL (32-36); Mean Corpuscular Volume 86.1 fL (80-100); Mean Platelet Volume 10.4 fL (7.4-10.4); Platelet Count 273 K/uL (130-400); RDW Coefficient of Variation 17.4 % (11.5-14.5); RDW Standard Deviation 54.9 fL (36.4-46.3); Red Blood Count 5.05 M/uL (4.7-6.1); White Blood Count 13.63 K/uL (4.8-10.8)
[2021-05-05 07:09] LABS: INR 1.2 (0.9-1.1); Prothrombin Time 11.7 Seconds (9.0-12.0)
[2021-05-05] MEDS: buprenorphine HCL 8 MG SUBL SL SCH ×3 (09:10→20:13)
[2021-05-05] MEDS: DOCUSATE SODIUM 100 MG CAP PO SCH ×2 (09:10→20:14)
[2021-05-05] MEDS: CYCLOBENZAPRINE HCL 10 MG TAB PO PRN ×2 (09:10→20:13)
[2021-05-05] MEDS: PIPERACILLIN/TAZOBACTAM 4.5 GM in DEXTROSE 5% 100 ML IV SCH ×2 (09:11→15:13)
[2021-05-05] MEDS: LIDOCAINE 5% 1 PATCH TD SCH (09:11)
[2021-05-05] MEDS: DOXYCYCLINE HYCLATE 100 MG CAP PO SCH ×2 (09:12→20:15)
[2021-05-05] MEDS: FINASTERIDE 5 MG TAB PO SCH (09:12)
[2021-05-05] MEDS: METOPROLOL SUCC 25MG EXT REL TAB PO SCH ×2 (09:12→20:16)
[2021-05-05] MEDS: FAMOTIDINE 20 MG TAB PO SCH (09:12)
[2021-05-05] MEDS: TAMSULOSIN HCL 0.4 MG CAP PO SCH (09:12)
[2021-05-05] MEDS: ISOSORBIDE MONO EXTENDED REL 30 MG TABCR PO SCH (09:12)
[2021-05-05] MEDS: ADVANCED PROBIOTIC 1250 MG CAPSULE PO SCH ×2 (09:12→20:15)
[2021-05-05] MEDS: FOLIC ACID 1 MG TAB PO SCH (09:12)
[2021-05-05] MEDS: DULoxetine HCL 60 MG CAP PO SCH (09:13)
[2021-05-05] MEDS: SPIRONOLACTONE 25 MG TAB PO SCH (09:13)
[2021-05-05] MEDS: FUROSEMIDE 40 MG TAB PO SCH ×2 (09:13→17:48)
[2021-05-05] MEDS: GABAPENTIN 800 MG TAB PO SCH ×3 (09:13→20:15)
[2021-05-05] MEDS: SENNA 8.6 MG TAB PO PRN (09:13)
[2021-05-05] MEDS: FLUTICASONE PROPIONATE NA SPR 16 GM BTL SCH (09:15)
[2021-05-05] MEDS: FLUTICASONE/VILANTEROL 100/25MCG 14 PUFFS/INHALER INH SCH (09:15)
[2021-05-05] MEDS: UMECLIDINIUM BROMIDE 62.5MCG/BLISTER 7 PUFFS/INHALER INH SCH (09:15)
[2021-05-05] MEDS: NICOTINE 21 MG/24 HR TDSY TD SCH (09:15)
[2021-05-05] MEDS: INSULIN ASPART 100 UNITS/ML 3 ML PEN SC SCH ×4 (09:16→20:20)
[2021-05-05] MEDS: INSULIN GLARGINE SOLOSTAR 100 UNITS/ML 3 ML PEN SC SCH ×2 (09:16→20:18)
[2021-05-05] MEDS: POLYETHYLENE (MIRALAX) 17 GM PACK PO SCH (09:16)
[2021-05-05] MEDS ORDERED: traMADol HCL 50 MG TABLET PO ONE ×2 (10:45→21:00)
[2021-05-05] MEDS: ALBUTEROL HFA 8 GM INHALER INH PRN (12:09)
[2021-05-05] MEDS: HEPARIN SOD 5,000 UNIT/0.5 ML VIAL SQ SCH ×2 (13:30→22:50)
[2021-05-05] MEDS: WARFARIN SOD 5 MG TAB PO SCH (15:13)
--- NOTE | 2021-05-05 17:38 | Hospitalist Progress Note ---
Date of Service May 05, 2021 Assessment & Plan (1) Sepsis: Plan: Meet sepsis criteria on admission with tachycardia and elevated white count Possible related to UTI versus right foot cellulitis Wound culture grew Staphylococcus species Urine culture grew gram-negative bacilli and probable Enterococcus Currently on doxycycline and IV Zosyn We will consider to de-escalate IV Zosyn Continue monitor closely (2) Foot ulcer, right: Plan: Present on admission with worsening right foot pain Right foot x-ray showed posttraumatic changes at the right third metatarsal. No acute fracture or dislocation within the right foot. Dorsal soft tissue swelling. Refuses to try IV Tylenol Continue gabapentin, Lidoderm patch Very high risk for narcotic abuse with multiple admissions with similar demands Patient had multiple verbal altercation with provides provider and staff in the past No acute fracture identified. 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 Mild dorsal subcutaneous edema. MRI right foot showed dorsal soft tissue edema and enhancement within the forefoot. This likely represents a cellulitis. No abscess or osteomyelitis identified. No change in the chronic fracture and surrounding shrapnel within the third metatarsal. No acute fracture or dislocation within the right foot. Wound culture grew staph aureus species Continue doxycycline IV Zosyn Will give tramadol x1 since patient was laying down on the stretcher for about 2 hours for the MRI Ortho on board Ortho discussed with patient about ORIF of the fracture can be arranged as an outpatient Patient plan to make an appointment with Ortho upon discharge from the hospital Continue PT/ OT-Plan to get a cam boot Patient is interested to go to rehab since he cannot walk or put weight on his right foot Fall precaution Supratherapeutic INR: INR on admission 3.4, then increased to 3.8 Vitamin K was given by the admitting physician INR 1.2 today, Continue Coumadin Continue monitor PT/INR UTI UA positive for nitrite and leukocyte Urine culture grew gram-negative backslash and probable Enterococcus Continue IV Zosyn and doxy Follow-up in urine sensitivity Will deescalate IV Zosyn Chronic diastolic CHF (congestive heart failure): CXR showed Cardiomegaly with suggestion of pulmonary vascular congestion. Unchanged blunting of the costophrenic angles. Patient appears to be euvolemic Continue lasix, spironolactone DM type 2 (diabetes mellitus, type 2): Most recent hemoglobin A1c 6.9 Hold home oral meds NovoLog sliding scale per protocol COPD (chronic obstructive pulmonary disease): Continue home inhalers Chronic pain: Chronic pain syndrome Demands Narcotics for chronic pain despite explaining the risks and complications Currently on Subutex Refuses to try IV Tylenol Continue gabapentin, Lidoderm patch Very high risk for narcotic abuse with multiple admissions with similar demands Patient had multiple verbal altercation with provides and staff on multiple occasions PDMP indicates multiple prescriptions for controlled substances from different providers in the past Morbid obesity: BMI: 61 Lifestyle modifications recommended DVT Px: INR 1.2, on Coumadin On heparin subcu until INR therapeutic Code Status Full Code Admission and Anticipated Discharge Date Admission Date: May 03, 2021 Subjective Patient was seen and examined for follow-up of right foot pain and swelling Lying in bed with no distress watching TV Patient said that earlier today while eating his meal, he felt the stuck in his chest and caused him to vomit He said that it happened twice while eating when he felt he had difficulty to swallow then vomiting. He continues to complain of pain and asking for pain medication Denies any chest pain, palpitation, dizziness, shortness of breath. Physical Exam Physical Exam: General- No acute distress Head- atraumatic Eyes- PERRL, EOMI, ENT- oropharynx clear Neck- supple, no JVD Lungs- clear to auscultation Heart- regular rhythm; no murmur Abdomen- normal bowel sounds, soft, nontender Extremities- no calf tenderness, right dorsal foot with open wound, edema and erythema Neuro- alert, oriented x 3; PERRL, EOMI; no facial palsy; no dysarthria Skin- warm & dry Results & Data Results & Data ([facility]) Vital Signs (Past 12 Hours) Vital Signs Temp Pulse Pulse Resp BP Pulse Ox 05/05/21 16:00 69 05/05/21 12:11 78 18 90 05/05/21 11:48 36.9 C 72 20 127/67 91 05/05/21 06:47 36.7 C 66 20 129/72 93
--- NOTE | 2021-05-05 18:20 | XRay Report ---
SINGLE VIEW CHEST CLINICAL HISTORY: Vomiting. FINDINGS: 2 AP, portable, upright chest radiographs are compared to study dated 05/03/2021 and correla andrew with chest CT dated 10/31/2020. The examination is degraded by portable technique, large body habi tus, patient rotation, and apical lordotic positioning. The cardiomediastinal silhouette is top norm al for projection. There is bibasilar scarring/atelectasis. No airspace consolidation or large pleura l effusion is identified. No pneumothorax is seen. There is chronic posttraumatic deformity of the le ft clavicle. IMPRESSION: No active disease in the chest. Electronically signed by: Misael Lopez M.D. 05/05/2021 6:19 PM
[2021-05-05] MEDS: LORazepam 0.5 MG TAB PO PRN (20:13)
[2021-05-06] MEDS: PIPERACILLIN/TAZOBACTAM 4.5 GM in DEXTROSE 5% 100 ML IV SCH ×2 (01:23→08:08)
[2021-05-06] MEDS: HEPARIN SOD 5,000 UNIT/0.5 ML VIAL SQ SCH ×3 (05:56→21:03)
[2021-05-06] MEDS: PANTOprazole 40 MG TAB PO SCH (05:57)
[2021-05-06 06:44] LABS: Hematocrit (blood only) 44.6 % (42-52); Mean Corpuscular Hemoglobin 26.9 pg (25-34); Mean Corpuscular Hgb Conc 31.4 g/dL (32-36); Mean Corpuscular Volume 85.6 fL (80-100); Mean Platelet Volume 9.8 fL (7.4-10.4); Platelet Count 250 K/uL (130-400); RDW Coefficient of Variation 17.1 % (11.5-14.5); RDW Standard Deviation 53.4 fL (36.4-46.3); Red Blood Count 5.21 M/uL (4.7-6.1)
[2021-05-06 06:52] LABS: INR 1.1 (0.9-1.1); Prothrombin Time 10.7 Seconds (9.0-12.0)
[2021-05-06 07:24] LABS: Creatinine Clr Calc Pharmacy 146.1 ml/min; Est GFR (African American) 98.9 ml/min; Est GFR (Non-African American) 85.3 ml/min
[2021-05-06] MEDS: DOCUSATE SODIUM 100 MG CAP PO SCH ×2 (08:06→20:50)
[2021-05-06] MEDS: buprenorphine HCL 8 MG SUBL SL SCH ×3 (08:06→21:02)
[2021-05-06] MEDS: DULoxetine HCL 60 MG CAP PO SCH (08:07)
[2021-05-06] MEDS: FINASTERIDE 5 MG TAB PO SCH (08:07)
[2021-05-06] MEDS: SENNA 8.6 MG TAB PO PRN (08:07)
[2021-05-06] MEDS: SPIRONOLACTONE 25 MG TAB PO SCH (08:07)
[2021-05-06] MEDS: FUROSEMIDE 40 MG TAB PO SCH ×2 (08:07→16:58)
[2021-05-06] MEDS: FAMOTIDINE 20 MG TAB PO SCH (08:07)
[2021-05-06] MEDS: FOLIC ACID 1 MG TAB PO SCH (08:07)
[2021-05-06] MEDS: TAMSULOSIN HCL 0.4 MG CAP PO SCH (08:07)
[2021-05-06] MEDS: METOPROLOL SUCC 25MG EXT REL TAB PO SCH ×2 (08:07→20:51)
[2021-05-06] MEDS: ADVANCED PROBIOTIC 1250 MG CAPSULE PO SCH ×2 (08:07→20:51)
[2021-05-06] MEDS: ISOSORBIDE MONO EXTENDED REL 30 MG TABCR PO SCH (08:07)
[2021-05-06] MEDS: GABAPENTIN 800 MG TAB PO SCH ×3 (08:08→20:51)
[2021-05-06] MEDS: INSULIN ASPART 100 UNITS/ML 3 ML PEN SC SCH ×4 (08:08→20:52)
[2021-05-06] MEDS: DOXYCYCLINE HYCLATE 100 MG CAP PO SCH (08:08)
[2021-05-06] MEDS: FLUTICASONE PROPIONATE NA SPR 16 GM BTL SCH (08:10)
[2021-05-06] MEDS: FLUTICASONE/VILANTEROL 100/25MCG 14 PUFFS/INHALER INH SCH (08:10)
[2021-05-06] MEDS: INSULIN GLARGINE SOLOSTAR 100 UNITS/ML 3 ML PEN SC SCH ×2 (08:11→20:51)
[2021-05-06] MEDS: NICOTINE 21 MG/24 HR TDSY TD SCH (08:12)
[2021-05-06] MEDS: POLYETHYLENE (MIRALAX) 17 GM PACK PO SCH (08:12)
[2021-05-06] MEDS: UMECLIDINIUM BROMIDE 62.5MCG/BLISTER 7 PUFFS/INHALER INH SCH (08:12)
[2021-05-06] MEDS: LIDOCAINE 5% 1 PATCH TD SCH (08:12)
[2021-05-06] MEDS: CYCLOBENZAPRINE HCL 10 MG TAB PO PRN (11:50)
[2021-05-06] MEDS: levoFLOXacin 750 MG TAB PO SCH (12:21)
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
[2021-05-06] MEDS ORDERED: traMADol HCL 50 MG TABLET PO STA ×2 (13:01→21:51)
[2021-05-06] MEDS: AMOXICILLIN/CLAVULANATE 875 MG TAB PO SCH (16:58)
[2021-05-06] MEDS: WARFARIN SOD 5 MG TAB PO SCH (16:58)
[2021-05-06] MEDS: LORazepam 0.5 MG TAB PO PRN (21:05)
--- NOTE | 2021-05-06 22:46 | Hospitalist Progress Note ---
Date of Service May 06, 2021 Assessment & Plan (1) Sepsis: Plan: Meet sepsis criteria on admission with tachycardia and elevated white count Possible related to UTI versus right foot cellulitis Wound culture grew Staphylococcus species Urine culture grew gram-negative bacilli and probable Enterococcus Currently on doxycycline and IV Zosyn We will consider to de-escalate IV Zosyn Continue monitor closely (2) Foot ulcer, right: Plan: Present on admission with worsening right foot pain Right foot x-ray showed posttraumatic changes at the right third metatarsal. No acute fracture or dislocation within the right foot. Dorsal soft tissue swelling. Refuses to try IV Tylenol Continue gabapentin, Lidoderm patch Very high risk for narcotic abuse with multiple admissions with similar demands Patient had multiple verbal altercation with provides provider and staff in the past No acute fracture identified. 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 Mild dorsal subcutaneous edema. MRI right foot showed dorsal soft tissue edema and enhancement within the forefoot. This likely represents a cellulitis. No abscess or osteomyelitis identified. No change in the chronic fracture and surrounding shrapnel within the third metatarsal. No acute fracture or dislocation within the right foot. Wound culture grew staph aureus species Continue doxycycline IV Zosyn Will give tramadol x1 since patient was laying down on the stretcher for about 2 hours for the MRI Ortho on board Ortho discussed with patient about ORIF of the fracture can be arranged as an outpatient Patient plan to make an appointment with Ortho upon discharge from the hospital Continue PT/ OT-Plan to get a cam boot Patient is interested to go to rehab since he cannot walk or put weight on his right foot Fall precaution Supratherapeutic INR: INR on admission 3.4, then increased to 3.8 Vitamin K was given by the admitting physician INR 1.2 today, Continue Coumadin Continue monitor PT/INR UTI UA positive for nitrite and leukocyte Urine culture grew gram-negative backslash and probable Enterococcus Continue IV Zosyn and doxy Follow-up in urine sensitivity Will deescalate IV Zosyn Chronic diastolic CHF (congestive heart failure): CXR showed Cardiomegaly with suggestion of pulmonary vascular congestion. Unchanged blunting of the costophrenic angles. Patient appears to be euvolemic Continue lasix, spironolactone DM type 2 (diabetes mellitus, type 2): Most recent hemoglobin A1c 6.9 Hold home oral meds NovoLog sliding scale per protocol COPD (chronic obstructive pulmonary disease): Continue home inhalers Chronic pain: Chronic pain syndrome Demands Narcotics for chronic pain despite explaining the risks and complications Currently on Subutex Refuses to try IV Tylenol Continue gabapentin, Lidoderm patch Very high risk for narcotic abuse with multiple admissions with similar demands Patient had multiple verbal altercation with provides and staff on multiple occasions PDMP indicates multiple prescriptions for controlled substances from different providers in the past Morbid obesity: BMI: 61 Lifestyle modifications recommended DVT Px: INR 1.2, on Coumadin On heparin subcu until INR therapeutic Code Status Full Code Admission and Anticipated Discharge Date Admission Date: May 03, 2021 Subjective Patient was seen and examined for follow-up of right foot pain and swelling Lying in bed with no distress watching TV Patient said that earlier today while eating his meal, he felt the stuck in his chest and caused him to vomit He said that it happened twice while eating when he felt he had difficulty to swallow then vomiting. He continues to complain of pain and asking for pain medication Denies any chest pain, palpitation, dizziness, shortness of breath. Physical Exam Physical Exam: General- No acute distress Head- atraumatic Eyes- PERRL, EOMI, ENT- oropharynx clear Neck- supple, no JVD Lungs- clear to auscultation Heart- regular rhythm; no murmur Abdomen- normal bowel sounds, soft, nontender Extremities- no calf tenderness, right dorsal foot with open wound, edema and erythema Neuro- alert, oriented x 3; PERRL, EOMI; no facial palsy; no dysarthria Skin- warm & dry Results & Data Results & Data ([facility]) Vital Signs (Past 12 Hours) Vital Signs Temp Pulse Pulse Resp BP BP Pulse Ox 05/06/21 19:50 37.1 C 76 18 116/70 93 05/06/21 15:36 37.3 C 77 16 117/68 91 05/06/21 15:31 83 05/06/21 13:10 36.8 C 70 20 142/89 H 91 (1) Foot ulcer, right Non-pressure ulcer stage: unspecified non-pressure ulcer stage Qualified Code(s): L97.519 - Non-pressure chronic ulcer of other part of right foot with unspecified severity
[2021-05-07] MEDS: HEPARIN SOD 5,000 UNIT/0.5 ML VIAL SQ SCH ×3 (06:32→20:38)
[2021-05-07] MEDS: PANTOprazole 40 MG TAB PO SCH (06:33)
[2021-05-07 07:44] LABS: Prothrombin Time 10.5 Seconds (9.0-12.0)
[2021-05-07] MEDS: POLYETHYLENE (MIRALAX) 17 GM PACK PO SCH ×3 (08:19→20:38)
[2021-05-07] MEDS: buprenorphine HCL 8 MG SUBL SL SCH ×3 (08:19→20:46)
[2021-05-07] MEDS: UMECLIDINIUM BROMIDE 62.5MCG/BLISTER 7 PUFFS/INHALER INH SCH (08:20)
[2021-05-07] MEDS: NICOTINE 21 MG/24 HR TDSY TD SCH (08:20)
[2021-05-07] MEDS: FLUTICASONE PROPIONATE NA SPR 16 GM BTL SCH (08:20)
[2021-05-07] MEDS: FLUTICASONE/VILANTEROL 100/25MCG 14 PUFFS/INHALER INH SCH (08:20)
[2021-05-07] MEDS: INSULIN ASPART 100 UNITS/ML 3 ML PEN SC SCH ×4 (08:21→20:32)
[2021-05-07] MEDS: INSULIN GLARGINE SOLOSTAR 100 UNITS/ML 3 ML PEN SC SCH ×2 (08:22→20:32)
[2021-05-07] MEDS: SPIRONOLACTONE 25 MG TAB PO SCH (08:23)
[2021-05-07] MEDS: FUROSEMIDE 40 MG TAB PO SCH ×2 (08:23→17:05)
[2021-05-07] MEDS: ISOSORBIDE MONO EXTENDED REL 30 MG TABCR PO SCH (08:23)
[2021-05-07] MEDS: DOCUSATE SODIUM 100 MG CAP PO SCH ×2 (08:23→20:37)
[2021-05-07] MEDS: TAMSULOSIN HCL 0.4 MG CAP PO SCH (08:23)
[2021-05-07] MEDS: ADVANCED PROBIOTIC 1250 MG CAPSULE PO SCH ×2 (08:23→20:38)
[2021-05-07] MEDS: GABAPENTIN 800 MG TAB PO SCH ×3 (08:24→20:38)
[2021-05-07] MEDS: FAMOTIDINE 20 MG TAB PO SCH (08:24)
[2021-05-07] MEDS: METOPROLOL SUCC 25MG EXT REL TAB PO SCH ×2 (08:24→20:37)
[2021-05-07] MEDS: AMOXICILLIN/CLAVULANATE 875 MG TAB PO SCH ×2 (08:24→17:05)
[2021-05-07] MEDS: SENNA 8.6 MG TAB PO PRN (08:25)
[2021-05-07] MEDS: FINASTERIDE 5 MG TAB PO SCH (08:25)
[2021-05-07] MEDS: DULoxetine HCL 60 MG CAP PO SCH (08:25)
[2021-05-07] MEDS: FOLIC ACID 1 MG TAB PO SCH (08:25)
[2021-05-07] MEDS: LIDOCAINE 5% 1 PATCH TD SCH (08:26)
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
[2021-05-07 10:38] LABS: Hematocrit (blood only) 45.1 % (42-52); Hemoglobin 14.4 g/dL (14.0-18.0); Mean Corpuscular Hemoglobin 27.5 pg (25-34); Mean Corpuscular Hgb Conc 31.9 g/dL (32-36); Mean Corpuscular Volume 86.2 fL (80-100); Mean Platelet Volume 10.3 fL (7.4-10.4); Platelet Count 256 K/uL (130-400); RDW Coefficient of Variation 17.2 % (11.5-14.5); RDW Standard Deviation 53.4 fL (36.4-46.3); Red Blood Count 5.23 M/uL (4.7-6.1); White Blood Count 12.39 K/uL (4.8-10.8)
[2021-05-07] MEDS: CYCLOBENZAPRINE HCL 10 MG TAB PO PRN ×2 (12:09→23:00)
[2021-05-07] MEDS: levoFLOXacin 750 MG TAB PO SCH (12:09)
[2021-05-07] MEDS ORDERED: traMADol HCL 50 MG TABLET PO ONE ×2 (13:30→21:00)
[2021-05-07] MEDS: ALBUTEROL HFA 8 GM INHALER INH PRN (13:45)
[2021-05-07] MEDS: WARFARIN SOD 5 MG TAB PO SCH (17:05)
--- NOTE | 2021-05-07 19:23 | Hospitalist Progress Note ---
Date of Service May 07, 2021 Assessment & Plan (1) Sepsis: Plan: Meet sepsis criteria on admission with tachycardia and elevated white count Possible related to UTI versus right foot cellulitis Wound culture grew Staphylococcus species Urine culture grew gram-negative bacilli and probable Enterococcus Currently on doxycycline and IV Zosyn We will consider to de-escalate IV Zosyn Continue monitor closely (2) Foot ulcer, right: Plan: Present on admission with worsening right foot pain Right foot x-ray showed posttraumatic changes at the right third metatarsal. No acute fracture or dislocation within the right foot. Dorsal soft tissue swelling. Refuses to try IV Tylenol Continue gabapentin, Lidoderm patch Very high risk for narcotic abuse with multiple admissions with similar demands Patient had multiple verbal altercation with provides provider and staff in the past No acute fracture identified. 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 Mild dorsal subcutaneous edema. MRI right foot showed dorsal soft tissue edema and enhancement within the forefoot. This likely represents a cellulitis. No abscess or osteomyelitis identified. No change in the chronic fracture and surrounding shrapnel within the third metatarsal. No acute fracture or dislocation within the right foot. Wound culture grew staph aureus species He was on doxycycline and IV Zosyn Antibiotic was changed to Levaquin and Augmentin since patient has been treated for UTI as well Ortho on board Ortho discussed with patient about ORIF of the fracture can be arranged as an outpatient Patient plan to make an appointment with Ortho upon discharge from the hospital Continue PT/ OT- with a cam boot Plan to go to rehab since he cannot walk or put weight on his right foot Fall precaution Supratherapeutic INR: INR on admission 3.4, then increased to 3.8 Vitamin K was given by the admitting physician INR 1.1 today, Continue Coumadin Continue monitor PT/INR UTI UA positive for nitrite and leukocyte Urine culture grew gram-negative bacilli and probable Enterococcus Final urine cx grew Stenotrophomonas maltophilia and Enterococcus faecalis He was started on IV Zosyn on admission Antibiotic were changed to Augmentin and levofloxacin Chronic diastolic CHF (congestive heart failure): CXR showed Cardiomegaly with suggestion of pulmonary vascular congestion. Unchanged blunting of the costophrenic angles. Patient appears to be euvolemic Continue lasix, spironolactone DM type 2 (diabetes mellitus, type 2): Most recent hemoglobin A1c 6.9 Hold home oral meds NovoLog sliding scale per protocol COPD (chronic obstructive pulmonary disease): Continue home inhalers Dysphagia Possible related to esophageal dysmotility Bedside FEES showed esophageal problem as per speech GI is on board Upper GI with small bowel follow through cancelled since patient will not be able to stand for 10 minutes to get the study done No need for video swallow since patient has a fees done yesterday that showed some esophageal problem as per speech We will get an abdominal ultrasound done Chronic pain: Chronic pain syndrome Demands Narcotics for chronic pain despite explaining the risks and complications Currently on Subutex Refuses to try IV Tylenol Continue gabapentin, Lidoderm patch Very high risk for narcotic abuse with multiple admissions with similar demands Patient had multiple verbal altercation with provides and staff on multiple occasions PDMP indicates multiple prescriptions for controlled substances from different providers in the past Has been asking for tramadol to be given prior to physical therapy Morbid obesity: BMI: 61 Lifestyle modifications recommended DVT Px: INR 1.1, on Coumadin On heparin subcu until INR therapeutic Code Status Full Code Admission and Anticipated Discharge Date Admission Date: May 03, 2021 Subjective Patient was seen and examined for follow-up of right foot pain and swelling Lying in bed with no acute distress watching TV He was made n.p.o. for possible upper GI with small bowel follow-through Study canceled since patient will not be able to stand for 10 minutes to get the test done No need for video swallow since patient has a fees done yesterday that showed some esophageal problem as per speech Continue to ask for tramadol to be given 30 minutes before starting therapy He said that he was able to swallow his food today with no problem Denies any chest pain, palpitation, dizziness, shortness of breath. Physical Exam Physical Exam: General- No acute distress Head- atraumatic Eyes- PERRL, EOMI, ENT- oropharynx clear Neck- supple, no JVD Lungs- clear to auscultation Heart- regular rhythm; no murmur Abdomen- normal bowel sounds, soft, nontender Extremities- no calf tenderness, right dorsal foot with open wound, edema and erythema improved Neuro- alert, oriented x 3; PERRL, EOMI; no facial palsy; no dysarthria Skin- warm & dry Results & Data Results & Data ([facility]) Vital Signs (Past 12 Hours) Vital Signs Temp Pulse Pulse Resp BP Pulse Ox 05/07/21 14:54 74 05/07/21 14:51 36.9 C 80 20 126/76 93 05/07/21 13:45 71 16 97 05/07/21 11:25 36.9 C 69 20 125/71 93 05/07/21 08:00 59 L (1) Foot ulcer, right Non-pressure ulcer stage: unspecified non-pressure ulcer stage Qualified Code(s): L97.519 - Non-pressure chronic ulcer of other part of right foot with unspecified severity
[2021-05-08] MEDS: LORazepam 0.5 MG TAB PO PRN ×2 (01:25→22:39)
[2021-05-08] MEDS: PANTOprazole 40 MG TAB PO SCH (06:08)
[2021-05-08] MEDS: HEPARIN SOD 5,000 UNIT/0.5 ML VIAL SQ SCH ×3 (06:08→20:31)
[2021-05-08 07:58] LABS: Hematocrit (blood only) 44.3 % (42-52); Hemoglobin 13.9 g/dL (14.0-18.0); Mean Corpuscular Hemoglobin 27.3 pg (25-34); Mean Corpuscular Hgb Conc 31.4 g/dL (32-36); Mean Platelet Volume 10.5 fL (7.4-10.4); Platelet Count 255 K/uL (130-400); RDW Coefficient of Variation 16.9 % (11.5-14.5); Red Blood Count 5.09 M/uL (4.7-6.1); White Blood Count 11.04 K/uL (4.8-10.8)
[2021-05-08 08:06] LABS: Prothrombin Time 10.3 Seconds (9.0-12.0)
[2021-05-08] MEDS: INSULIN ASPART 100 UNITS/ML 3 ML PEN SC SCH ×4 (08:22→20:26)
[2021-05-08] MEDS: GABAPENTIN 800 MG TAB PO SCH ×3 (08:23→20:29)
[2021-05-08] MEDS: FOLIC ACID 1 MG TAB PO SCH (08:23)
[2021-05-08] MEDS: DULoxetine HCL 60 MG CAP PO SCH (08:23)
[2021-05-08] MEDS: FUROSEMIDE 40 MG TAB PO SCH ×2 (08:23→17:18)
[2021-05-08] MEDS: SENNA 8.6 MG TAB PO PRN (08:23)
[2021-05-08] MEDS: AMOXICILLIN/CLAVULANATE 875 MG TAB PO SCH ×2 (08:23→17:18)
[2021-05-08] MEDS: FINASTERIDE 5 MG TAB PO SCH (08:23)
[2021-05-08] MEDS: buprenorphine HCL 8 MG SUBL SL SCH ×3 (08:23→20:26)
[2021-05-08 08:24] LABS: Creatinine Clr Calc Pharmacy 165.9 ml/min; Est GFR (Non-African American) 99.2 ml/min
[2021-05-08] MEDS: DOCUSATE SODIUM 100 MG CAP PO SCH ×2 (08:24→20:29)
[2021-05-08] MEDS: TAMSULOSIN HCL 0.4 MG CAP PO SCH (08:24)
[2021-05-08] MEDS: SPIRONOLACTONE 25 MG TAB PO SCH (08:24)
[2021-05-08] MEDS: ADVANCED PROBIOTIC 1250 MG CAPSULE PO SCH ×2 (08:24→20:30)
[2021-05-08] MEDS: ISOSORBIDE MONO EXTENDED REL 30 MG TABCR PO SCH (08:24)
[2021-05-08] MEDS: METOPROLOL SUCC 25MG EXT REL TAB PO SCH ×2 (08:24→20:30)
[2021-05-08] MEDS: FAMOTIDINE 20 MG TAB PO SCH (08:24)
[2021-05-08] MEDS: NICOTINE 21 MG/24 HR TDSY TD SCH (08:25)
[2021-05-08] MEDS: POLYETHYLENE (MIRALAX) 17 GM PACK PO SCH ×2 (08:25→20:31)
[2021-05-08] MEDS: INSULIN GLARGINE SOLOSTAR 100 UNITS/ML 3 ML PEN SC SCH ×2 (08:25→20:28)
[2021-05-08] MEDS: UMECLIDINIUM BROMIDE 62.5MCG/BLISTER 7 PUFFS/INHALER INH SCH (08:26)
[2021-05-08] MEDS: LIDOCAINE 5% 1 PATCH TD SCH (08:26)
[2021-05-08] MEDS: FLUTICASONE/VILANTEROL 100/25MCG 14 PUFFS/INHALER INH SCH (08:26)
[2021-05-08] MEDS: FLUTICASONE PROPIONATE NA SPR 16 GM BTL SCH (08:26)
--- NOTE | 2021-05-08 09:11 | Gastroenterology Progress Note ---
Date of Service May 08, 2021 Assessment & Plan (1) Dysphagia: Plan: -Pantoprazole 40 mg BID -Famotidine 40 mg QHS -Chew thoroughly and slowly. Avoid extremely cold foods. Sips of water in between bites. -Would advise a trial of peppermint oil. To get a high enough concentration of peppermint oil, would advise patient consume 2 sugar-free Peppermint Altoids (must be Altoid brand) prior to meals. -Would advise working with PT to achieve the ability to stand for 5 minutes to have a barium swallow. Could also consider an outpatient esophageal manometry pending barium swallow results. (2) Constipation: Plan: -Continue Miralax 17 gm BID -Consider prescription options as outpatient (ie--Linzess) (3) Right sided abdominal pain: Plan: -Abdominal US ordered -Trial of Simethicone as patient feels the discomfort is related to gas Admission and Anticipated Discharge Date Admission Date: May 03, 2021 Subjective Patient is a 50 yo male with extreme obesity (BMI 61.7) with multiple medical comorbidities and complaints of dysphagia. An EGD in 2020 was unremarkable for structural abnormalities contributing to this reported symptom. Esophageal dysmotility is suspected, however patient is unable to stand for to have an upper GI/barium swallow. Today patient reports RUQ pain and gas. Review of Systems Constitutional: no fever and no chills Respiratory: no cough and no dyspnea Cardiovascular: no chest pain Gastrointestinal: + dysphagia; no abdominal pain Physical Exam Constitutional: + obese Respiratory: normal respiratory effort Gastrointestinal (Abdomen): normal bowel sounds, soft, nontender, no hepatosplenomegaly (bowel sounds difficult to auscultate due to body habitus) Results & Data Results & Data ([facility]) Vital Signs (Past 12 Hours) Vital Signs Temp Pulse Pulse Resp BP BP Pulse Ox 05/08/21 07:34 58 L 05/08/21 07:23 36.5 C 65 18 106/68 96 05/08/21 03:00 36.8 C 64 16 145/75 H 97 05/07/21 23:59 70 05/07/21 23:20 36.9 C 74 20 107/62 94 PG Care Time/CCT Total # of Minutes Spent Total Time Spent with Patient: Total time spent is greater than 50% in coordination of care (as documented) at patient's floor/unit and/or counseling patient: Coding Level of Care Code 60454 Subseq Hosp Care Lvl 3 Diagnoses Dysphagia R13.10 Constipation K59.00 Right sided abdominal pain R10.9
[2021-05-08] MEDS ORDERED: SIMETHICONE 80 MG CHEW PO PRN (10:29)
--- NOTE | 2021-05-08 11:29 | Ultrasound Report ---
ULTRASOUND RIGHT UPPER QUADRANT ABDOMEN CLINICAL HISTORY: Right upper quadrant abdominal pain. COMPARISON STUDY: Abdominal CT dated 01/13/2021 TECHNIQUE: Real-time, grayscale, and color flow sonography of the right upper quadrant of the abdomen was performed. Images are reviewed in the transverse and longitudinal planes. FINDINGS: Liver: The liver is enlarged and demonstrates heterogeneously increased echotexture consistent with s evere hepatic steatosis. Note that this degrades acoustic penetration of the liver. There is no intra hepatic biliary ductal dilatation. The main portal vein is patent. Gallbladder: The gallbladder is normal in appearance. No gallstones are identified. There is no gallb ladder wall thickening or pericholecystic fluid. A sonographic Day's sign is reportedly absent. Th e common bile duct measures up to 0.4 cm in diameter. Pancreas: Visualized portions of the pancreatic head and body are normal in appearance. Right kidney: Survey images of the right kidney demonstrate normal size and echotexture. There is no hydronephrosis. Ascites: None. IMPRESSION: 1. No acute sonographic abnormality is seen in the right upper quadrant. No gallstones are identified . 2. Hepatomegaly and severe hepatic steatosis. ACT 112: Negative or not required by law. Electronically signed by: Misael Lopez M.D. 05/08/2021 11:28 AM
[2021-05-08] MEDS: levoFLOXacin 750 MG TAB PO SCH (12:30)
[2021-05-08] MEDS ORDERED: WARFARIN SOD 7.5 MG TAB PO SCH (16:00)
[2021-05-08] MEDS ORDERED: traMADol HCL 50 MG TABLET PO STA (20:46)
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
[2021-05-08] MEDS: CYCLOBENZAPRINE HCL 10 MG TAB PO PRN (23:24)
[2021-05-09] MEDS: PANTOprazole 40 MG TAB PO SCH (06:27)
[2021-05-09] MEDS: HEPARIN SOD 5,000 UNIT/0.5 ML VIAL SQ SCH (06:27)
[2021-05-09 08:00] LABS: Prothrombin Time 10.3 Seconds (9.0-12.0)
[2021-05-09] MEDS: INSULIN ASPART 100 UNITS/ML 3 ML PEN SC SCH ×2 (08:56→12:50)
[2021-05-09] MEDS: NICOTINE 21 MG/24 HR TDSY TD SCH (08:58)
[2021-05-09] MEDS: AMOXICILLIN/CLAVULANATE 875 MG TAB PO SCH (08:58)
[2021-05-09] MEDS: DULoxetine HCL 60 MG CAP PO SCH (08:59)
[2021-05-09] MEDS: DOCUSATE SODIUM 100 MG CAP PO SCH (08:59)
[2021-05-09] MEDS: ADVANCED PROBIOTIC 1250 MG CAPSULE PO SCH (08:59)
[2021-05-09] MEDS: GABAPENTIN 800 MG TAB PO SCH ×2 (09:00→14:52)
[2021-05-09] MEDS: FINASTERIDE 5 MG TAB PO SCH (09:00)
[2021-05-09] MEDS: SENNA 8.6 MG TAB PO PRN (09:01)
[2021-05-09] MEDS: ISOSORBIDE MONO EXTENDED REL 30 MG TABCR PO SCH (09:01)
[2021-05-09] MEDS: TAMSULOSIN HCL 0.4 MG CAP PO SCH (09:01)
[2021-05-09] MEDS: FOLIC ACID 1 MG TAB PO SCH (09:02)
[2021-05-09] MEDS: FAMOTIDINE 20 MG TAB PO SCH (09:02)
[2021-05-09] MEDS: FUROSEMIDE 40 MG TAB PO SCH (09:03)
[2021-05-09] MEDS: METOPROLOL SUCC 25MG EXT REL TAB PO SCH (09:03)
[2021-05-09] MEDS: FLUTICASONE PROPIONATE NA SPR 16 GM BTL SCH (09:04)
[2021-05-09] MEDS: INSULIN GLARGINE SOLOSTAR 100 UNITS/ML 3 ML PEN SC SCH (09:05)
[2021-05-09] MEDS: FLUTICASONE/VILANTEROL 100/25MCG 14 PUFFS/INHALER INH SCH (09:05)
[2021-05-09] MEDS: POLYETHYLENE (MIRALAX) 17 GM PACK PO SCH (09:05)
[2021-05-09] MEDS: SPIRONOLACTONE 25 MG TAB PO SCH (09:06)
[2021-05-09] MEDS: UMECLIDINIUM BROMIDE 62.5MCG/BLISTER 7 PUFFS/INHALER INH SCH (09:06)
[2021-05-09] MEDS: LIDOCAINE 5% 1 PATCH TD SCH (09:07)
[2021-05-09] MEDS: buprenorphine HCL 8 MG SUBL SL SCH ×2 (09:15→14:57)
[2021-05-09] MEDS ORDERED: traMADol HCL 50 MG TABLET PO STA ×2 (10:47→15:42)
[2021-05-09] MEDS ORDERED: ENOXAPARIN 100 MG/1ML SYR SQ SCH (11:00)
--- NOTE | 2021-05-09 11:06 | Hospitalist Progress Note ---
Date of Service May 09, 2021 Assessment & Plan (1) Sepsis: Plan: Meet sepsis criteria on admission with tachycardia and elevated white count Possible related to UTI versus right foot cellulitis Wound culture grew Staphylococcus species Urine culture grew gram-negative bacilli and probable Enterococcus He was started on doxycycline and IV Zosyn during admission Antibiotic changed to Augmentin and Levaquin according to the wound and urine culture We will continue oral antibiotic for 10 days in total (2) Foot ulcer, right: Plan: Present on admission with worsening right foot pain Right foot x-ray showed posttraumatic changes at the right third metatarsal. No acute fracture or dislocation within the right foot. Dorsal soft tissue swelling. 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 Mild dorsal subcutaneous edema. MRI right foot showed dorsal soft tissue edema and enhancement within the forefoot. This likely represents a cellulitis. No abscess or osteomyelitis identified. No change in the chronic fracture and surrounding shrapnel within the third metatarsal. No acute fracture or dislocation within the right foot. Wound culture grew staph aureus species He was on doxycycline and IV Zosyn Antibiotic was changed to Levaquin and Augmentin since patient has been treated for UTI as well Ortho discussed with patient about ORIF of the fracture can be arranged as an outpatient Patient plan to make an appointment with Ortho upon discharge from the hospital Continue PT/ OT- with a cam boot Has been complaining of more pain while doing therapy Current doses of tramadol have not been controlling the pain Tramadol doses have been increased on the milligram 3 times daily as needed before therapy Supratherapeutic INR: INR on admission 3.4, then increased to 3.8 Vitamin K was given by the admitting physician INR 1.1 today, Continue Coumadin Continue monitor PT/INR Will give Lovenox 100 mg daily and continue Coumadin with recheck INR Lovenox can be discontinued when INR is therapeutic UTI UA positive for nitrite and leukocyte Urine culture grew gram-negative bacilli and probable Enterococcus Final urine cx grew Stenotrophomonas maltophilia and Enterococcus faecalis He was started on IV Zosyn on admission Antibiotic were changed to Augmentin and levofloxacin Will complete course of antibiotic Chronic diastolic CHF (congestive heart failure): CXR showed Cardiomegaly with suggestion of pulmonary vascular congestion. Unchanged blunting of the costophrenic angles. Patient appears to be euvolemic Continue lasix, spironolactone No acute CHF DM type 2 (diabetes mellitus, type 2): Most recent hemoglobin A1c 6.9 Hold home oral meds NovoLog sliding scale per protocol COPD (chronic obstructive pulmonary disease): Continue home inhalers Dysphagia Possible related to esophageal dysmotility Bedside FEES showed esophageal problem as per speech GI is on board Upper GI with small bowel follow through cancelled since patient will not be able to stand for 10 minutes to get the study done No need for video swallow since patient has a fees done yesterday that showed some esophageal problem as per speech Abdominal ultrasound showed no acute sonographic abnormality is seen in the right upper quadrant. No gallstones are identified. Case discussed with GI recommended esophageal manometry as an outpatient for dysphagia Patient will call to arrange for the study Chronic pain: Chronic pain syndrome Demands Narcotics for chronic pain despite explaining the risks and complications Currently on Subutex Refuses to try IV Tylenol Continue gabapentin, Lidoderm patch Very high risk for narcotic abuse with multiple admissions with similar demands Patient had multiple verbal altercation with provides and staff on multiple occasions PDMP indicates multiple prescriptions for controlled substances from different providers in the past Has been asking for tramadol to be given prior to physical therapy and he has been getting 50 mg before therapy without much help The tramadol has been increased to 100 mg 3 times daily for a few days only Morbid obesity: BMI: 61 Lifestyle modifications recommended DVT Px: INR 1.1, on Coumadin On heparin subcu until INR therapeutic (patient going to rehab okay for discha rge with heparin subcu until INR therapeutic) Heparin dose or change to Lovenox 100 mg subcu daily which can be discontinued when INR is therapeutic Code Status Full Code Plan: Will be discharged today Admission and Anticipated Discharge Date Admission Date: May 03, 2021 Subjective 05/09/2021 The patient was seen and examined in medical telemetry unit He has been complaining of cough with wheezing and shortness of breath since this morning He has been getting more pain in the right foot during therapy and mentioned that current dose of tramadol is not controlling pain at all He will be discharged to the rehab facility today Review of Systems Review of Systems: All systems reviewed and are unremarkable except as noted below Musculoskeletal: Increasing pain in the right foot Physical Exam Physical Exam: Lying in bed and complaining pain in the right foot Constitutional: well developed, well nourished, + ill appearing and + obese Eyes: PERRL, conjunctivae normal, anicteric sclerae ENMT: external ear and nose normal, oropharynx normal Neck: trachea midline, no thyromegaly Respiratory: normal respiratory effort and + cough; no respiratory distress and does not use accessory muscles Auscultation: + rhonchi; no crackles Cardiovascular: Rate/Rhythm: regular rate and regular rhythm; not tachycardic Heart Sounds: normal S1 and normal S2; no murmur Gastrointestinal (Abdomen): normal bowel sounds, soft, nontender, no hepatosplenomegaly Musculoskeletal: Right foot wound. Pain with movement of the right foot Neurologic: Alert, 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. No focal sensory or motor deficit appreciated Results & Data Results & Data ([facility]) Vital Signs (Past 12 Hours) Vital Signs Temp Pulse Pulse Resp BP Pulse Ox 05/09/21 07:09 36.6 C 65 18 129/72 96 05/09/21 03:00 36.5 C 70 20 126/71 95 05/09/21 00:30 76 05/08/21 23:00 36.6 C 74 20 128/77 95 Medications Administered Current Inpatient Medications Acetaminophen (Acetaminophen 325 Mg Tab) 650 mg PO Q4H PRN PRN Reason: Pain or Fever Stop: 06/02/21 02:45 Albuterol (Albuterol Hfa 8 Gm Inhaler) 2 puffs INH Q4H PRN PRN Reason: Wheezing Stop: 06/04/21 11:59 Last Admin: 05/07/21 13:45 Dose: 2 puffs Documented by: Amoxicillin/Clavulanate Potassium (Amoxicillin/Clavulanate 875 Mg Tab) 1 tab PO BIDM EMPERATRIZ; Protocol Stop: 05/13/21 07:59 Last Admin: 05/09/21 08:58 Dose: 1 tab Documented by: Buprenorphine HCl (Buprenorphine Hcl 8 Mg Subl) 8 mg SL TID EMPERATRIZ Stop: 06/02/21 00:51 Last Admin: 05/09/21 09:15 Dose: 8 mg Documented by: Cyclobenzaprine HCl (Cyclobenzaprine Hcl 10 Mg Tab) 10 mg PO BID PRN PRN Reason: Muscle Spasm Stop: 06/02/21 03:09 Last Admin: 05/08/21 23:24 Dose: 10 mg Documented by: Dextrose (Dextrose 50% 50 Ml Syringe) 25 - 50 ml IV UD PRN; Protocol PRN Reason: Hypoglycemia Protocol Stop: 06/02/21 02:45 Diphenhydramine HCl (Diphenhydramine Capsule 25 Mg Cap) 25 mg PO Q8H PRN PRN Reason: Itching Stop: 06/02/21 11:19 Last Admin: 05/03/21 11:33 Dose: 25 mg Documented by: Docusate Sodium (Docusate Sodium 100 Mg Cap) 100 mg PO BID [facility] Stop: 06/02/21 08:59 Last Admin: 05/09/21 08:59 Dose: 100 mg Documented by: Duloxetine HCl (Duloxetine Hcl 60 Mg Cap) 60 mg PO DAILY [facility] Stop: 06/02/21 08:59 Last Admin: 05/09/21 08:59 Dose: 60 mg Documented by: Enoxaparin Sodium (Enoxaparin 100 Mg/1ml Syr) 100 mg SQ Q24H EMPERATRIZ Stop: 06/08/21 10:59 Famotidine (Famotidine 20 Mg Tab) 20 mg PO DAILY [facility] Stop: 06/02/21 08:59 Last Admin: 05/09/21 09:02 Dose: 20 mg Documented by: Finasteride (Finasteride 5 Mg Tab) 5 mg PO QAM [facility] Stop: 06/02/21 08:59 Last Admin: 05/09/21 09:00 Dose: 5 mg Documented by: Fluticasone Propionate (Fluticasone Propionate Na Spr 16 Gm Btl) 2 sprays NA DAILY [facility] Stop: 06/02/21 08:59 Last Admin: 05/09/21 09:04 Dose: 2 sprays Documented by: Fluticasone/Vilanterol (Fluticasone/Vilanterol 100/25mcg 14 Puffs/Inhaler) 1 puffs INH DAILY [facility] Stop: 06/02/21 08:59 Last Admin: 05/09/21 09:05 Dose: 1 puffs Documented by: Folic Acid (Folic Acid 1 Mg Tab) 1 mg PO QAM [facility] Stop: 06/02/21 08:59 Last Admin: 05/09/21 09:02 Dose: 1 mg Documented by: Furosemide (Furosemide 40 Mg Tab) 40 mg PO BID17 [facility] Stop: 06/03/21 09:29 Last Admin: 05/09/21 09:03 Dose: 40 mg Documented by: Gabapentin (Gabapentin 800 Mg Tab) 800 mg PO TID [facility]MPERATRIZ Stop: 06/02/21 08:59 Last Admin: 05/09/21 09:00 Dose: 800 mg Documented by: Glucagon (Glucagon For Inj 1 Mg Vial) 1 mg SQ UD PRN; Protocol PRN Reason: Hypoglycemia Protocol Stop: 06/02/21 02:45 Glucose (Glucose 10 Tabs/Tube) 4 - 8 tabs PO UD PRN; Protocol PRN Reason: Hypoglycemia Protocol Stop: 06/02/21 02:45 Glucose (Glucose 40% Gel 15 Gm Tube) 15 - 30 gm PO UD PRN; Protocol PRN Reason: Hypoglycemia Protocol Stop: 06/02/21 02:45 Heparin Sodium (Porcine) (Heparin Sod 5,000 Unit/0.5 Ml Vial) 5,000 units SQ Q8 [facility] Stop: 06/04/21 13:59 Last Admin: 05/09/21 06:27 Dose: 5,000 units Documented by: Hydroxyzine HCl (Hydroxyzine Hcl 25 Mg Tab) 25 mg PO QID PRN PRN Reason: Anxiety Stop: 06/02/21 02:45 Last Admin: 05/04/21 21:19 Dose: 25 mg Documented by: Promethazine HCl 12.5 mg/ (Sodium Chloride) 50.5 mls @ 202 mls/hr IV Q6H PRN PRN Reason: Nausea And Vomiting Stop: 06/02/21 02:45 Insulin Aspart (Insulin Aspart 100 Units/Ml 3 Ml Pen) 0 units SC ACHS [facility] Stop: 06/02/21 02:45 Last Admin: 05/09/21 08:56 Dose: 4 units Documented by: Insulin Glargine (Insulin Glargine Solostar 100 Units/Ml 3 Ml Pen) 15 units SC BID [facility] Stop: 06/02/21 07:34 Last Admin: 05/09/21 09:05 Dose: 15 units Documented by: Ipratropium Grafton (Ipratropium [place] Neb Soln 0.02% 2.5 Ml Vial) 0.5 mg INH Q4H PRN PRN Reason: Shortness Of Breath Or Wheezing Stop: 06/02/21 02:45 Isosorbide Mononitrate (Isosorbide [place] Extended Rel 30 Mg Tabcr) 30 mg PO DAILY [facility] Stop: 06/02/21 08:59 Last Admin: 05/09/21 09:01 Dose: 30 mg Documented by: Lactobacillus Acidoph/Casei/Rhamnos (Advanced Probiotic 1250 Mg Capsule) 2 cap PO BID [facility] Stop: 06/02/21 08:59 Last Admin: 05/09/21 08:59 Dose: 2 cap Documented by: Levalbuterol HCl (Levalbuterol 1.25mg/0.5ml Neb) 1.25 mg INH Q4H PRN PRN Reason: Shortness Of Breath Or Wheezing Stop: 06/02/21 02:45 Levofloxacin (Levofloxacin 750 Mg Tab) 750 mg PO DAILY@1100 [facility]; Protocol Stop: 05/12/21 11:01 Last Admin: 05/08/21 12:30 Dose: 750 mg Documented by: Lidocaine (Lidocaine 5% 1 Patch) 1 patch TD QAM [facility] Stop: 06/02/21 11:29 Last Admin: 05/09/21 09:07 Dose: Not Given Documented by: Lorazepam (Lorazepam 0.5 Mg Tab) 0.5 mg PO Q8 PRN PRN Reason: Anxiety Stop: 06/02/21 02:45 Last Admin: 05/08/21 22:39 Dose: 0.5 mg Documented by: Metoprolol Succinate (Metoprolol Succ 25mg Ext Rel Tab) 75 mg PO BID [facility] Stop: 06/02/21 06:59 Last Admin: 05/09/21 09:03 Dose: 75 mg Documented by: Miscellaneous (Carbohydrates For Hypoglycemia ) 15 - 30 gm PO UD PRN PRN Reason: Hypoglycemia Protocol Stop: 06/02/21 02:45 Miscellaneous (Remove Nicoderm Patch) 1 ea N/A DAILY@0859 [facility] Stop: 06/03/21 08:58 Last Admin: 05/09/21 09:04 Dose: 1 ea Documented by: Miscellaneous (Remove Lidoderm Patch) 1 ea N/A DAILY@2100 [facility] Stop: 06/02/21 20:59 Last Admin: 05/08/21 20:30 Dose: Not Given Documented by: Nicotine (Nicotine 21 Mg/24 Hr Tdsy) 21 mg TD QAM [facility] Stop: 06/02/21 02:59 Last Admin: 05/09/21 08:58 Dose: 21 mg Documented by: Nitroglycerin (Nitroglycerin Sl 0.4 Mg/Tab Tab) 0.4 mg SL UD PRN PRN Reason: CHEST PAIN Stop: 06/02/21 02:45 Pantoprazole Sodium (Pantoprazole 40 Mg Tab) 40 mg PO DAILYBB [facility] Stop: 06/02/21 06:29 Last Admin: 05/09/21 06:27 Dose: 40 mg Documented by: Polyethylene Glycol (Polyethylene (Miralax) 17 Gm Pack) 17 gm PO BID [facility] Stop: 06/06/21 11:14 Last Admin: 05/09/21 09:05 Dose: 17 gm Documented by: Sennosides (Senna 8.6 Mg Tab) 8.6 mg PO DAILY PRN PRN Reason: Constipation Stop: 06/02/21 02:45 Last Admin: 05/09/21 09:01 Dose: 8.6 mg Documented by: Simethicone (Simethicone 80 Mg Chew) 80 mg PO Q6H PRN PRN Reason: Gas Stop: 06/07/21 10:28 Spironolactone ([facility] 25 Mg Tab) [facility] Stop: 06/03/21 08:59 Last Admin: 05/09/21 09:06 Dose: 25 mg Documented by: Tamsulosin HCl (Tamsulosin Hcl 0.4 Mg Cap) 0.4 mg PO QAM [facility] Stop: 06/02/21 08:59 Last Admin: 05/09/21 09:01 Dose: 0.4 mg Documented by: Umeclidinium Grafton (Umeclidinium [place] 62.5mcg/Blister 7 Puffs/Inhaler) 1 puffs INH QAM [facility] Stop: 06/02/21 08:59 Last Admin: 05/09/21 09:06 Dose: 1 puffs Documented by: Warfarin Sodium (Warfarin Sod 7.5 Mg Tab) 7.5 mg PO DAILY@1600 [facility] Stop: 06/07/21 15:59 Last Admin: 05/08/21 17:19 Dose: 7.5 mg Documented by: (1) Foot ulcer, right Non-pressure ulcer stage: unspecified non-pressure ulcer stage Qualified Code(s): L97.519 - Non-pressure chronic ulcer of other part of right foot with unspecified severity
[2021-05-09] MEDS: levoFLOXacin 750 MG TAB PO SCH (11:51)
[2021-05-09] MEDS: LORazepam 0.5 MG TAB PO PRN (12:55)
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
== END 2021-05-09 16:05 | DRG 872 ==
LOC: ED 20:31 → 2W 05-03 01:06 → SUATTDRO 05-03 01:06 → 2W 05-03 02:20

== ENCOUNTER 2021-06-08 23:18 | Inpatient (IN) ==
[2021-06-09 00:10] LABS: Basophils # (auto) 0.02 K/uL (0-0.2); Basophils % (auto) 0.1 %; Eosinophils # (auto) 0.25 K/uL (0-0.5); Eosinophils % (auto) 1.6 %; Hematocrit (blood only) 40.9 % (42-52); Hemoglobin 13.1 g/dL (14.0-18.0); Immature Granulocytes # (auto) 0.05 K/uL (0.00-0.02); Immature Granulocytes % (auto) 0.3 %; Lymphocytes # (auto) 2.23 K/uL (1.2-3.4); Lymphocytes % (auto) 14.4 %; Mean Corpuscular Hemoglobin 27.1 pg (25-34); Mean Corpuscular Volume 84.7 fL (80-100); Mean Platelet Volume 9.6 fL (7.4-10.4); Monocytes # (auto) 0.76 K/uL (0.11-0.59); Monocytes % (auto) 4.9 %; Neutrophils # (auto) 12.23 K/uL (1.4-6.5); Neutrophils % (auto) 78.7 %; Platelet Count 293 K/uL (130-400); RDW Coefficient of Variation 17.3 % (11.5-14.5); RDW Standard Deviation 53.4 fL (36.4-46.3); Red Blood Count 4.83 M/uL (4.7-6.1); White Blood Count 15.54 K/uL (4.8-10.8)
[2021-06-09 00:30] LABS: Appearance Urine Cloudy (Clear); Bacteria Urine Automated 2+ (Negative); Bilirubin Urine Negative (Negative); Blood Urine 2+ (Negative); Color Urine Yellow; Epithelial Cell Urine Auto 20-30 /lpf (0-5); Glucose Urine UA Negative (Negative); Ketones Urine Negative (Negative); Leukocyte Esterase Urine 2+ (Negative); Nitrite Urine Positive (Negative); Protein Urine Negative (Negative); Specific Gravity Urine 1.014 (1.000-1.030); Urobilinogen Urine Positive (Negative); WBC Urine Automated >30 /hpf (0-5); pH Urine >= 9.0 (4.5-7.5)
[2021-06-09 00:33] LABS: Partial Thromboplastin Ratio 3.1; Prothrombin Time 52.6 Seconds (9.0-12.0)
[2021-06-09 00:41] LABS: Acetaminophen < 2 ug/ml (10-30); Alanine Aminotransferase 15 U/L (12-78); Albumin Level 2.9 gm/dl (3.4-5.0); Aspartate Aminotransferase 17 U/L (15-37); BUN Creatinine Ratio 7.8 (10-20); Blood Urea Nitrogen 8 mg/dl (7-18); Calcium 8.9 mg/dl (8.5-10.1); Carbon Dioxide 28 mmol/L (21-32); Chloride 106 mmol/L (98-107); Est GFR (African American) 95.5 ml/min; Est GFR (Non-African American) 82.4 ml/min; Glucose 88 mg/dl (70-99); Magnesium 2.5 mg/dl (1.8-2.4); Potassium 3.9 mmol/L (3.5-5.1); Salicylate 3.8 mg/dl (2.8-20); Sodium 141 mmol/L (136-145)
[2021-06-09 00:43] LABS: Partial Thromboplastin Time 82.3 Seconds (21.0-31.0)
[2021-06-09 00:44] LABS: Albumin Globulin Ratio 0.6 (0.9-2); Alkaline Phosphatase 141 U/L (45-117); Bilirubin,Total 0.7 mg/dl (0.2-1); Globulin 4.5 gm/dl (2.5-4.0); Total Protein 7.4 gm/dl (6.4-8.2); Troponin I < 0.015 ng/ml (0-0.045)
[2021-06-09 00:48] LABS: Amorphous Sediment Urine Present (None Prsent); Amphetamines+Metham, Urine Neg (Neg); Barbiturates, Urine Neg (Neg); Benzodiazepine, Urine Neg (Neg); Cocaine, Urine Neg (Neg); MDMA (Ecstacy), Urine Neg (Neg); Methadone, Urine Neg (Neg); Opiate, Urine Neg (Neg); Phencyclidine, Urine Neg (Neg)
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
[2021-06-09] MEDS ORDERED: POLYETHYLENE (MIRALAX) 17 GM PACK PO PRN (04:38)
[2021-06-09] MEDS ORDERED: NYSTATIN POWDER 15GM BTL EXT PRN (04:38)
[2021-06-09] MEDS ORDERED: NITROGLYCERIN SL 0.4 MG/TAB TAB SL PRN ×2 (04:38)
[2021-06-09] MEDS ORDERED: ACETAMINOPHEN 325 MG TAB PO PRN (04:38)
[2021-06-09] MEDS ORDERED: ALBUTEROL HFA 8 GM INHALER INH PRN (04:38)
[2021-06-09] MEDS ORDERED: SENNA 8.6 MG TAB PO PRN (04:38)
[2021-06-09] MEDS ORDERED: hydrOXYzine HCl 25 MG TAB PO PRN (04:38)
[2021-06-09] MEDS ORDERED: PIPERACILL/TAZOBAC CONSULT ACTIVE PRN (04:38)
[2021-06-09] MEDS ORDERED: ONDANSETRON INJ 2 MG/ML 2 ML VIAL IV PRN (04:38)
[2021-06-09] MEDS ORDERED: ALBUT/IPRATROP 3MG/0.5MG NEB 3 ML VIAL INH PRN (04:38)
[2021-06-09] MEDS ORDERED: traMADol HCL 50 MG TABLET PO PRN (05:24)
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
[2021-06-09] MEDS ORDERED: PIPERACILLIN/TAZOBACTAM 4.5 GM in DEXTROSE 5% 100 ML IV ONE (06:00)
[2021-06-09 06:23] LABS: INR 5.2 (0.9-1.1); Prothrombin Time 46.3 Seconds (9.0-12.0)
--- NOTE | 2021-06-09 07:01 | XRay Report ---
XR chest 1V portable CLINICAL HISTORY: weakness COMPARISON STUDY: Chest radiograph May 05, 2021. FINDINGS: Lung volumes are normal. Enlargement of the cardiac silhouette is unchanged. There is no pn eumothorax or pleural effusion. Apparent hazy left basilar opacity is likely artifactual. Interstitia l prominence is unchanged. There is suspected vascular congestion. IMPRESSION: No significant change in appearance of the chest. Cardiomegaly and pulmonary vascular co ngestion. ACT 112: Negative or not required by law. Electronically signed by: Evelio Corbin M.D. 06/09/2021 7:00 AM
--- NOTE | 2021-06-09 07:10 | CT Scan Report ---
CT head/brain wo con Clinical Indication: MN ^AMS. Technique: Contiguous axial CT images of the head were acquired from the base of the skull to the radha rex without intravenous contrast administration. Images were viewed in brain, subdural and bone windo ws. Automated dose lowering techniques and/or adjustment according to patient size were utilized for this exam. Comparison: Comparison is made to CT head 02/28/2021 Findings: The ventricles, basal cisterns, and cerebral sulci are normal. There is no acute intracranial hemorrh age or evidence of acute territorial infarction. Neither mass effect, shift of the midline structures , nor abnormal extra-axial fluid collections are shown. Partial opacification of the right ethmoid sinus is noted. Mucous thickening in the left greater than right maxillary sinuses. The orbits appear normal. There are no acute fractures of the calvaria or scalp swelling. Impression: 1. No acute intracranial hemorrhage, evidence of acute territorial infarction, or other acute intrac ranial disease process. 2. Sinus disease. ACT 112: Negative or not required by law. Electronically signed by: Armand Tobar M.D. 06/09/2021 7:09 AM
[2021-06-09] MEDS: METOPROLOL SUCC 25MG EXT REL TAB PO SCH ×2 (07:52→21:03)
[2021-06-09] MEDS: PANTOprazole 40 MG TAB PO SCH (07:52)
[2021-06-09] MEDS: FINASTERIDE 5 MG TAB PO SCH (07:53)
[2021-06-09] MEDS: FUROSEMIDE 40 MG TAB PO SCH ×2 (07:53→17:07)
[2021-06-09] MEDS: FLUTICASONE PROPIONATE NA SPR 16 GM BTL SCH (07:54)
[2021-06-09] MEDS: TAMSULOSIN HCL 0.4 MG CAP PO SCH (07:54)
[2021-06-09] MEDS: LACTOBACILLUS ACIDOPHILUS 1 GM PACK PO SCH ×2 (07:54→16:15)
[2021-06-09] MEDS: ASPIRIN 81 MG ECTAB PO SCH (07:54)
[2021-06-09] MEDS: FAMOTIDINE 20 MG TAB PO SCH (07:55)
[2021-06-09] MEDS: DOCUSATE SODIUM 100 MG CAP PO SCH ×2 (07:55→21:03)
[2021-06-09] MEDS: DULoxetine HCL 60 MG CAP PO SCH (07:55)
[2021-06-09] MEDS: ISOSORBIDE MONO EXTENDED REL 30 MG TABCR PO SCH (07:55)
[2021-06-09] MEDS: NICOTINE 21 MG/24 HR TDSY TD SCH (07:56)
[2021-06-09] MEDS: UMECLIDINIUM BROMIDE 62.5MCG/BLISTER 7 PUFFS/INHALER INH SCH (07:56)
[2021-06-09] MEDS: POTASSIUM CHLORIDE CRTAB 20 MEQ TABCR PO SCH ×2 (07:58→21:03)
[2021-06-09] MEDS: POLYETHYLENE (MIRALAX) 17 GM PACK PO SCH (07:58)
[2021-06-09] MEDS: GABAPENTIN 800 MG TAB PO SCH ×3 (07:58→21:03)
[2021-06-09] MEDS: METHENAMINE HIPPURATE 1 GM TAB PO SCH (07:58)
[2021-06-09] MEDS: SPIRONOLACTONE 25 MG TAB PO SCH (07:59)
[2021-06-09] MEDS: FLUTICASONE/VILANTEROL 100/25MCG 14 PUFFS/INHALER INH SCH (07:59)
[2021-06-09] MEDS: FOLIC ACID 1 MG TAB PO SCH (08:00)
[2021-06-09] MEDS: INSULIN ASPART 100 UNITS/ML 3 ML PEN SC SCH ×4 (08:01→21:10)
[2021-06-09] MEDS: buprenorphine HCL 8 MG SUBL SL SCH ×3 (08:11→21:19)
--- NOTE | 2021-06-09 08:20 | Electrocardiogram Report ---
Test Reason : Blood Pressure : / mmHG Vent. Rate : 099 BPM Atrial Rate : 098 BPM P-R Int : 000 ms QRS Dur : 098 ms QT Int : 416 ms P-R-T Axes : 000 030 069 degrees QTc Int : 533 ms Poor data quality, interpretation may be adversely affected Sinus rhythm Incomplete right bundle branch block Abnormal ECG When compared with ECG of 03-MAY-2021 02:17, No significant change Confirmed by Da Browning ([id number]) on 06/09/2021 8:20:08 AM Referred By: REFERRED SELF Confirmed By:Da Browning
[2021-06-09] MEDS: PIPERACILLIN/TAZOBACTAM 4.5 GM in DEXTROSE 5% 100 ML IV SCH ×2 (13:17→20:54)
[2021-06-09] MEDS: ADVANCED PROBIOTIC 1250 MG CAPSULE PO SCH ×2 (13:18→17:06)
[2021-06-09] MEDS: LORazepam 0.5 MG TAB PO PRN (18:10)
[2021-06-09] MEDS: traMADol HCL 50 MG TABLET PO PRN (18:10)
[2021-06-09] MEDS: ATORVASTATIN 40 MG TAB PO SCH (21:03)
[2021-06-09] MEDS: INSULIN GLARGINE SOLOSTAR 100 UNITS/ML 3 ML PEN SC SCH (21:11)
[2021-06-10] MEDS: traMADol HCL 50 MG TABLET PO PRN ×4 (00:16→20:49)
[2021-06-10] MEDS: LORazepam 0.5 MG TAB PO PRN ×2 (02:25→23:48)
[2021-06-10] MEDS: PIPERACILLIN/TAZOBACTAM 4.5 GM in DEXTROSE 5% 100 ML IV SCH ×3 (03:47→19:28)
[2021-06-10] MEDS: PANTOprazole 40 MG TAB PO SCH (06:25)
[2021-06-10 07:20] LABS: Basophils # (auto) 0.03 K/uL (0-0.2); Basophils % (auto) 0.3 %; Eosinophils # (auto) 0.61 K/uL (0-0.5); Eosinophils % (auto) 5.4 %; Hematocrit (blood only) 40.2 % (42-52); Hemoglobin 12.4 g/dL (14.0-18.0); Immature Granulocytes # (auto) 0.02 K/uL (0.00-0.02); Immature Granulocytes % (auto) 0.2 %; Lymphocytes # (auto) 2.23 K/uL (1.2-3.4); Lymphocytes % (auto) 19.7 %; Mean Corpuscular Hemoglobin 26.8 pg (25-34); Mean Corpuscular Hgb Conc 30.8 g/dL (32-36); Mean Corpuscular Volume 86.8 fL (80-100); Mean Platelet Volume 9.7 fL (7.4-10.4); Monocytes # (auto) 0.78 K/uL (0.11-0.59); Monocytes % (auto) 6.9 %; Neutrophils # (auto) 7.67 K/uL (1.4-6.5); Neutrophils % (auto) 67.5 %; Platelet Count 273 K/uL (130-400); RDW Coefficient of Variation 17.5 % (11.5-14.5); RDW Standard Deviation 54.9 fL (36.4-46.3); Red Blood Count 4.63 M/uL (4.7-6.1); White Blood Count 11.34 K/uL (4.8-10.8)
[2021-06-10 07:38] LABS: INR 3.4 (0.9-1.1); Prothrombin Time 30.9 Seconds (9.0-12.0)
[2021-06-10] MEDS: DOCUSATE SODIUM 100 MG CAP PO SCH ×2 (07:46→20:49)
[2021-06-10] MEDS: buprenorphine HCL 8 MG SUBL SL SCH ×3 (07:46→20:49)
[2021-06-10] MEDS: FINASTERIDE 5 MG TAB PO SCH (07:47)
[2021-06-10] MEDS: POTASSIUM CHLORIDE CRTAB 20 MEQ TABCR PO SCH ×2 (07:47→20:49)
[2021-06-10] MEDS: GABAPENTIN 800 MG TAB PO SCH ×3 (07:47→20:53)
[2021-06-10] MEDS: POLYETHYLENE (MIRALAX) 17 GM PACK PO SCH (07:47)
[2021-06-10] MEDS: SPIRONOLACTONE 25 MG TAB PO SCH (07:47)
[2021-06-10] MEDS: FOLIC ACID 1 MG TAB PO SCH (07:48)
[2021-06-10] MEDS: ASPIRIN 81 MG ECTAB PO SCH (07:48)
[2021-06-10] MEDS: METHENAMINE HIPPURATE 1 GM TAB PO SCH (07:48)
[2021-06-10] MEDS: FAMOTIDINE 20 MG TAB PO SCH (07:48)
[2021-06-10] MEDS: ISOSORBIDE MONO EXTENDED REL 30 MG TABCR PO SCH (07:48)
[2021-06-10] MEDS: DULoxetine HCL 60 MG CAP PO SCH (07:48)
[2021-06-10 07:49] LABS: Estimated Average Glucose 143 mg/dl; Hemoglobin A1C 6.6 % (4.5-5.6)
[2021-06-10] MEDS: TAMSULOSIN HCL 0.4 MG CAP PO SCH (07:49)
[2021-06-10] MEDS: METOPROLOL SUCC 25MG EXT REL TAB PO SCH ×2 (07:49→20:54)
[2021-06-10] MEDS: ADVANCED PROBIOTIC 1250 MG CAPSULE PO SCH ×3 (07:49→17:12)
[2021-06-10] MEDS: FUROSEMIDE 40 MG TAB PO SCH ×2 (07:49→17:12)
[2021-06-10] MEDS: NICOTINE 21 MG/24 HR TDSY TD SCH (07:49)
[2021-06-10] MEDS: FLUTICASONE/VILANTEROL 100/25MCG 14 PUFFS/INHALER INH SCH (07:50)
[2021-06-10] MEDS: FLUTICASONE PROPIONATE NA SPR 16 GM BTL SCH (07:50)
[2021-06-10] MEDS: UMECLIDINIUM BROMIDE 62.5MCG/BLISTER 7 PUFFS/INHALER INH SCH (07:50)
[2021-06-10 07:54] LABS: BUN Creatinine Ratio 10.2 (10-20); Calcium 9.1 mg/dl (8.5-10.1); Est GFR (African American) 90.2 ml/min; Est GFR (Non-African American) 77.9 ml/min; Magnesium 2.1 mg/dl (1.8-2.4); Phosphorus 3.9 mg/dl (2.5-4.9)
[2021-06-10] MEDS: INSULIN ASPART 100 UNITS/ML 3 ML PEN SC SCH ×4 (08:26→20:51)
--- NOTE | 2021-06-10 13:02 | Electrocardiogram Report ---
Test Reason : Blood Pressure : / mmHG Vent. Rate : 078 BPM Atrial Rate : 078 BPM P-R Int : 154 ms QRS Dur : 108 ms QT Int : 396 ms P-R-T Axes : 081 070 082 degrees QTc Int : 451 ms Normal sinus rhythm Incomplete right bundle branch block Abnormal ECG When compared with ECG of 08-JUN-2021 23:49, No significant change Confirmed by Da Browning ([id number]) on 06/10/2021 1:02:28 PM Referred By: REFERRED SELF Confirmed By:Da Browning
--- NOTE | 2021-06-10 16:36 | Hospitalist Progress Note ---
Date of Service June 10, 2021 Assessment & Plan (1) Acute alteration in mental status: Plan: Presented with change in mental status and generalized weakness with lethargy 1 or 2 days prior to admission Noted to have possible UTI with acute metabolic and colopathy Started with intravenous Zosyn Urine culture is growing gram-negative bacilli-await sensitivity Await blood culture Use of antibiotic and duration will be decided on culture sensitivity (2) Urinary tract infection associated with catheterization of urinary tract: Plan: Has chronic indwelling Lloyd catheter due to BPH Was evaluated by urologist in the past while in the hospital Missed urology appointment on the day of admission Urinary catheter has been changed on 06/10/2021 Will need a follow-up appointment with urologist on discharge (3) Elevated INR: Plan: INR was elevated on admission at 6.0 Received vitamin K and INR is 3.4 today Repeat INR tomorrow and will start Coumadin at his usual home dose (4) DM type 2 (diabetes mellitus, type 2): Plan: Continue SSI and current insulin (5) Chronic diastolic CHF (congestive heart failure): Plan: Continue current medications No signs and or symptoms of fluid overload (6) Pulmonary embolism: Plan: On Coumadin (7) Morbid obesity: (8) COPD (chronic obstructive pulmonary disease): Plan: No exacerbation Has occasional wheezing on examination but no shortness of breath and saturating normal on room air (9) Chronic pain disorder: Plan: Has been on tramadol and Suboxone Checked recent discharge note from [facility] that he has been taking 100 mg tramadol every 6 hourly as needed Will not change his medication regimen during discharge (10) BPH (benign prostatic hyperplasia): Plan: An outpatient Plan: PT and OT have been requested Possible discharge after getting PT OT evaluation and also culture and sensitivity to guide the use of antibiotic Admission and Anticipated Discharge Date Admission Date: June 09, 2021 Subjective 06/10/2021 The patient was seen and examined in medical telemetry unit He has been complaining of tiredness and fatigue Denies any other significant symptoms Review of Systems Review of Systems: All systems reviewed and are unremarkable except as noted below Neurologic: Alert, 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. Generalized weakness Physical Exam Physical Exam: Lying in bed comfortably Constitutional: well developed, well nourished and + morbidly obese; not ill appearing Eyes: PERRL, conjunctivae normal, anicteric sclerae ENMT: external ear and nose normal, oropharynx normal Neck: trachea midline, no thyromegaly Respiratory: no respiratory distress and no cough Auscultation: lungs clear to auscultation bilaterally and + wheezes (Occasional wheezing) Cardiovascular: Rate/Rhythm: regular rate, regular rhythm and + tachycardic Heart Sounds: normal S1 and normal S2; no murmur Extremities: + edema (1+ edema bilaterally, chronic with skin changes and minor skin abrasion) Gastrointestinal (Abdomen): Inspection/Auscultation: + abdomen distended and normal bowel sounds Percussion/Palpation: abdomen soft; abdomen nontender Musculoskeletal: No acute arthritis in any joint Neurologic: Alert, 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. Generally weak and lethargic. no focal sensory or motor deficit appreciated Results & Data Results & Data ([facility]) Vital Signs (Past 12 Hours) Vital Signs Temp Pulse Resp BP Pulse Ox 06/10/21 16:08 36.5 C 100 H 20 143/78 H 94 06/10/21 11:11 36.6 C 68 18 109/62 90 06/10/21 07:47 36.4 C L 70 18 109/64 97 06/10/21 05:33 37 C 70 18 105/52 L 95 Laboratory Results Short CBC 06/10/21 Range/Units 06:36 WBC 11.34 H (4.8-10.8) K/uL Hgb 12.4 L (14.0-18.0) g/dL Hct 40.2 L (42-52) % Plt Count 273 (130-400) K/uL BMP 06/10/21 06:36 Sodium 138 Potassium 4.0 Chloride 103 Carbon Dioxide 30 BUN 11 Creatinine 1.10 Glucose 114 H Calcium 9.1 Medications Administered Current Inpatient Medications Acetaminophen (Acetaminophen 325 Mg Tab) 650 mg PO Q4H PRN PRN Reason: Pain or Fever Stop: 07/09/21 04:37 Albuterol (Albuterol Hfa 8 Gm Inhaler) 2 puffs INH Q4R PRN PRN Reason: Dyspnea Stop: 07/09/21 04:37 Albuterol (Albut/Ipratrop 3mg/0.5mg Neb 3 Ml Vial) 3 ml INH Q6R PRN PRN Reason: Shortness Of Breath Or Wheezing Stop: 07/09/21 04:37 Aspirin (Aspirin 81 Mg Ectab) 81 mg PO QAM EMPERATRIZ Stop: 07/09/21 08:59 Last Admin: 06/10/21 07:48 Dose: 81 mg Documented by: Atorvastatin Calcium (Atorvastatin 40 Mg Tab) 80 mg PO QPM EMPERATRIZ Stop: 07/09/21 20:59 Last Admin: 06/09/21 21:03 Dose: 80 mg Documented by: Buprenorphine HCl (Buprenorphine Hcl 8 Mg Subl) 8 mg SL TID EMPERATRIZ Stop: 07/09/21 08:59 Last Admin: 06/10/21 14:18 Dose: 8 mg Documented by: Cyclobenzaprine HCl (Cyclobenzaprine Hcl 10 Mg Tab) 10 mg PO BID PRN PRN Reason: Muscle Spasm Stop: 07/09/21 05:25 Docusate Sodium (Docusate Sodium 100 Mg Cap) 100 mg PO BID EMPERATRIZ Stop: 07/09/21 08:59 Last Admin: 06/10/21 07:46 Dose: 100 mg Documented by: Duloxetine HCl (Duloxetine Hcl 60 Mg Cap) 60 mg PO DAILY EMPERATRIZ Stop: 07/09/21 08:59 Last Admin: 06/10/21 07:48 Dose: 60 mg Documented by: Famotidine (Famotidine 20 Mg Tab) 20 mg PO DAILY EMPERATRIZ Stop: 07/09/21 08:59 Last Admin: 06/10/21 07:48 Dose: 20 mg Documented by: Finasteride (Finasteride 5 Mg Tab) 5 mg PO QAM EMPERATRIZ Stop: 07/09/21 08:59 Last Admin: 06/10/21 07:47 Dose: 5 mg Documented by: Fluticasone Propionate (Fluticasone Propionate Na Spr 16 Gm Btl) 2 sprays NA DAILY EMPERATRIZ Stop: 07/09/21 08:59 Last Admin: 06/10/21 07:50 Dose: 2 sprays Documented by: Fluticasone/Vilanterol (Fluticasone/Vilanterol 100/25mcg 14 Puffs/Inhaler) 1 puffs INH DAILY EMPERATRIZ Stop: 07/09/21 08:59 Last Admin: 06/10/21 07:50 Dose: 1 puffs Documented by: Folic Acid (Folic Acid 1 Mg Tab) 1 mg PO QAM EMPERATRIZ Stop: 07/09/21 08:59 Last Admin: 06/10/21 07:48 Dose: 1 mg Documented by: Furosemide (Furosemide 40 Mg Tab) 40 mg PO BID17 EMPERATRIZ Stop: 07/09/21 08:59 Last Admin: 06/10/21 07:49 Dose: 40 mg Documented by: Gabapentin (Gabapentin 800 Mg Tab) 800 mg PO TID EMPERATRIZ Stop: 07/09/21 08:59 Last Admin: 06/10/21 14:18 Dose: 800 mg Documented by: Hydroxyzine HCl (Hydroxyzine Hcl 25 Mg Tab) 25 mg PO QID PRN PRN Reason: Anxiety Stop: 07/09/21 04:37 Piperacillin Sod/Tazobactam (Sod 4.5 gm/ Dextrose) 120 mls @ 30 mls/hr IV Q8H EMPERATRIZ; Protocol Stop: 06/19/21 11:59 Last Admin: 06/10/21 12:17 Dose: 30 mls/hr Documented by: Insulin Aspart (Insulin Aspart 100 Units/Ml 3 Ml Pen) 0 units SC ACHS EMPERATRIZ Stop: 07/09/21 07:29 Last Admin: 06/10/21 12:19 Dose: 6 units Documented by: Insulin Glargine (Insulin Glargine Solostar 100 Units/Ml 3 Ml Pen) 50 units SC HS EMPERATRIZ Stop: 07/09/21 20:59 Last Admin: 06/09/21 21:11 Dose: 50 units Documented by: Isosorbide Mononitrate (Isosorbide [place]ven Extended Rel 30 Mg Tabcr) 30 mg PO DAILY EMPERATRIZ Stop: 07/09/21 08:59 Last Admin: 06/10/21 07:48 Dose: 30 mg Documented by: Lactobacillus Acidoph/Casei/Rhamnos (Advanced Probiotic 1250 Mg Capsule) 2 cap PO TIDM EMPERATRIZ Stop: 07/09/21 11:59 Last Admin: 06/10/21 12:18 Dose: 2 cap Documented by: Lorazepam (Lorazepam 0.5 Mg Tab) 0.5 mg PO Q8 PRN PRN Reason: Anxiety Stop: 07/09/21 04:37 Last Admin: 06/10/21 02:25 Dose: 0.5 mg Documented by: Methenamine Hippurate (Methenamine Hippurate 1 Gm Tab) 1 gm PO DAILY EMPERATRIZ Stop: 07/09/21 08:59 Last Admin: 06/10/21 07:48 Dose: 1 gm Documented by: Metoprolol Succinate (Metoprolol Succ 25mg Ext Rel Tab) 75 mg PO BID EMPERATRIZ Stop: 07/09/21 08:59 Last Admin: 06/10/21 07:49 Dose: 75 mg Documented by: Miscellaneous (Remove Nicoderm Patch) 1 ea N/A Q24H EMPERATRIZ Stop: 07/09/21 08:58 Last Admin: 06/10/21 07:50 Dose: 1 ea Documented by: Miscellaneous Information (Piperacill/Tazobac Consult Active) 1 ea N/A UD PRN PRN Reason: Consult Stop: 07/09/21 04:37 Nicotine (Nicotine 21 Mg/24 Hr Tdsy) 21 mg TD Q24H EMPERATRIZ Stop: 07/09/21 08:59 Last Admin: 06/10/21 07:49 Dose: 21 mg Documented by: Nitroglycerin (Nitroglycerin Sl 0.4 Mg/Tab Tab) 0.4 mg SL UD PRN PRN Reason: Chest Pain Stop: 07/09/21 04:37 Nystatin (Nystatin Powder 15gm Btl) 1 appln EXT TID PRN PRN Reason: Skin Irritation Stop: 07/09/21 04:37 Pantoprazole Sodium (Pantoprazole 40 Mg Tab) 40 mg PO DAILYBB [facility]; Protocol Stop: 07/09/21 06:29 Last Admin: 06/10/21 06:25 Dose: 40 mg Documented by: Polyethylene Glycol (Polyethylene (Miralax) 17 Gm Pack) 17 gm PO DAILY PRN PRN Reason: Constipation Stop: 07/09/21 04:37 Polyethylene Glycol (Polyethylene (Miralax) 17 Gm Pack) 17 gm PO QAM [facility] Stop: 07/09/21 08:59 Last Admin: 06/10/21 07:47 Dose: 17 gm Documented by: Potassium Chloride (Potassium Chloride Crtab 20 Meq Tabcr) 20 meq PO BID EMPERATRIZ Stop: 07/09/21 08:59 Last Admin: 06/10/21 07:47 Dose: 20 meq Documented by: Sennosides (Senna 8.6 Mg Tab) 8.6 mg PO DAILY PRN PRN Reason: Constipation Stop: 07/09/21 04:37 Spironolactone (Spironolactone 25 Mg Tab) 25 mg PO QAM [facility] Stop: 07/09/21 08:59 Last Admin: 06/10/21 07:47 Dose: 25 mg Documented by: Tamsulosin HCl (Tamsulosin Hcl 0.4 Mg Cap) 0.4 mg PO QAM EMPERATRIZ Stop: 07/09/21 08:59 Last Admin: 06/10/21 07:49 Dose: 0.4 mg Documented by: Tramadol HCl (Tramadol Hcl 50 Mg Tablet) 100 mg PO Q6H PRN PRN Reason: Pain Stop: 07/09/21 05:23 Last Admin: 06/10/21 14:18 Dose: 100 mg Documented by: Umeclidinium Marcy (Umeclidinium Marcy 62.5mcg/Blister 7 Puffs/Inhaler) [facility] [place] Protocol Stop: 07/09/21 08:59 Last Admin: 06/10/21 07:50 Dose: 1 puffs Documented by: (1) Urinary tract infection associated with catheterization of urinary tract Encounter type: initial encounter Indwelling urinary catheter type: indwelling urethral catheter Qualified Code(s): T83.511A - Infection and inflammatory reaction due to indwelling urethral catheter, initial encounter; N39.0 - Urinary tract infection, site not specified (2) COPD (chronic obstructive pulmonary disease) COPD type: unspecified COPD Qualified Code(s): J44.9 - Chronic obstructive pulmonary disease, unspecified (3) Pulmonary embolism Acute cor pulmonale presence: without acute cor pulmonale Chronicity: chronic Pulmonary embolism type: unspecified Qualified Code(s): I27.82 - Chronic pulmonary embolism
[2021-06-10] MEDS: INSULIN GLARGINE SOLOSTAR 100 UNITS/ML 3 ML PEN SC SCH (20:49)
[2021-06-10] MEDS: ATORVASTATIN 40 MG TAB PO SCH (20:53)
[2021-06-10] MEDS: CYCLOBENZAPRINE HCL 10 MG TAB PO PRN (23:48)
[2021-06-11] MEDS: PIPERACILLIN/TAZOBACTAM 4.5 GM in DEXTROSE 5% 100 ML IV SCH ×3 (04:23→20:53)
[2021-06-11] MEDS: traMADol HCL 50 MG TABLET PO PRN ×4 (05:01→23:26)
[2021-06-11] MEDS: PANTOprazole 40 MG TAB PO SCH (05:01)
[2021-06-11 06:30] LABS: Basophils # (auto) 0.04 K/uL (0-0.2); Basophils % (auto) 0.3 %; Eosinophils # (auto) 0.75 K/uL (0-0.5); Eosinophils % (auto) 5.3 %; Hematocrit (blood only) 41.1 % (42-52); Hemoglobin 12.9 g/dL (14.0-18.0); Immature Granulocytes # (auto) 0.03 K/uL (0.00-0.02); Immature Granulocytes % (auto) 0.2 %; Lymphocytes # (auto) 2.46 K/uL (1.2-3.4); Lymphocytes % (auto) 17.5 %; Mean Corpuscular Hemoglobin 26.7 pg (25-34); Mean Corpuscular Hgb Conc 31.4 g/dL (32-36); Mean Corpuscular Volume 84.9 fL (80-100); Mean Platelet Volume 9.6 fL (7.4-10.4); Monocytes # (auto) 0.88 K/uL (0.11-0.59); Monocytes % (auto) 6.3 %; Neutrophils # (auto) 9.92 K/uL (1.4-6.5); Neutrophils % (auto) 70.4 %; Platelet Count 272 K/uL (130-400); RDW Coefficient of Variation 17.2 % (11.5-14.5); RDW Standard Deviation 53.5 fL (36.4-46.3); Red Blood Count 4.84 M/uL (4.7-6.1); White Blood Count 14.08 K/uL (4.8-10.8)
[2021-06-11 06:48] LABS: INR 2.2 (0.9-1.1); Prothrombin Time 21.1 Seconds (9.0-12.0)
[2021-06-11 07:01] LABS: BUN Creatinine Ratio 10.4 (10-20); Calcium 9.4 mg/dl (8.5-10.1); Creatinine Clr Calc Pharmacy 118.1 ml/min; Est GFR (African American) 74.4 ml/min; Est GFR (Non-African American) 64.2 ml/min; Potassium 3.8 mmol/L (3.5-5.1)
[2021-06-11] MEDS: SPIRONOLACTONE 25 MG TAB PO SCH (08:14)
[2021-06-11] MEDS: FUROSEMIDE 40 MG TAB PO SCH ×2 (08:14→16:30)
[2021-06-11] MEDS: FINASTERIDE 5 MG TAB PO SCH (08:14)
[2021-06-11] MEDS: GABAPENTIN 800 MG TAB PO SCH ×3 (08:14→20:59)
[2021-06-11] MEDS: METOPROLOL SUCC 25MG EXT REL TAB PO SCH ×2 (08:14→21:00)
[2021-06-11] MEDS: FOLIC ACID 1 MG TAB PO SCH (08:15)
[2021-06-11] MEDS: DULoxetine HCL 60 MG CAP PO SCH (08:15)
[2021-06-11] MEDS: METHENAMINE HIPPURATE 1 GM TAB PO SCH (08:15)
[2021-06-11] MEDS: ASPIRIN 81 MG ECTAB PO SCH (08:15)
[2021-06-11] MEDS: ISOSORBIDE MONO EXTENDED REL 30 MG TABCR PO SCH (08:15)
[2021-06-11] MEDS: FAMOTIDINE 20 MG TAB PO SCH (08:15)
[2021-06-11] MEDS: ADVANCED PROBIOTIC 1250 MG CAPSULE PO SCH ×3 (08:15→16:30)
[2021-06-11] MEDS: TAMSULOSIN HCL 0.4 MG CAP PO SCH (08:15)
[2021-06-11] MEDS: DOCUSATE SODIUM 100 MG CAP PO SCH ×2 (08:19→21:04)
[2021-06-11] MEDS: LORazepam 0.5 MG TAB PO PRN ×2 (08:19→20:58)
[2021-06-11] MEDS: buprenorphine HCL 8 MG SUBL SL SCH ×3 (08:19→21:04)
[2021-06-11] MEDS: NICOTINE 21 MG/24 HR TDSY TD SCH (08:20)
[2021-06-11] MEDS: INSULIN ASPART 100 UNITS/ML 3 ML PEN SC SCH ×4 (08:24→21:05)
[2021-06-11] MEDS: UMECLIDINIUM BROMIDE 62.5MCG/BLISTER 7 PUFFS/INHALER INH SCH (08:25)
[2021-06-11] MEDS: FLUTICASONE PROPIONATE NA SPR 16 GM BTL SCH (08:25)
[2021-06-11] MEDS: FLUTICASONE/VILANTEROL 100/25MCG 14 PUFFS/INHALER INH SCH (08:25)
[2021-06-11] MEDS: POLYETHYLENE (MIRALAX) 17 GM PACK PO SCH (08:31)
[2021-06-11] MEDS: POTASSIUM CHLORIDE CRTAB 20 MEQ TABCR PO SCH ×2 (08:31→21:04)
[2021-06-11] MEDS: WARFARIN SOD 2.5 MG TAB PO SCH (16:30)
[2021-06-11] MEDS: CYCLOBENZAPRINE HCL 10 MG TAB PO PRN (20:58)
[2021-06-11] MEDS: ATORVASTATIN 40 MG TAB PO SCH (20:59)
[2021-06-11] MEDS: INSULIN GLARGINE SOLOSTAR 100 UNITS/ML 3 ML PEN SC SCH (21:05)
--- NOTE | 2021-06-11 21:13 | Hospitalist Progress Note ---
Date of Service June 11, 2021 Assessment & Plan (1) Acute alteration in mental status: (2) Elevated INR: Plan: #. Alteration in mental status #. UTI Patient presented with change in mental status and generalized weakness with lethargy 1 to 2 days [employer] Likely secondary to UTI. Resolvedback to baseline mentation. Patient has chronic indwelling Lloyd catheter due to BPH. Follow-up appointment with the urologist on discharge. Urine culture growing E. coli, avoid culture and sensitivity. Currently on Zosyn, tailor once C/S is out #. Elevated INR At presentation 6.0, within therapeutic level today. Resume home meds. #. DM type II: Continue with SSI #. History of pulmonary embolism: Resume warfarin #. Chronic pain disorder: Has been on tramadol and Suboxone, recent discharge note from [facility] states he has been taking 100 mg tramadol every 6 hourly as needed. We will not change his medication regime during discharge. Disposition: PT recommending home health PT upon discharge. Likely discharge once urine culture and sensitivities. Admission and Anticipated Discharge Date Admission Date: June 11, 2021 Subjective Patient is lying in bed, on room air, NAD, no issues overnight. Patient complains of chronic back pain and knee pain. Patient denies any feve r/headache/dizziness/other review of symptoms. Physical Exam Physical Exam: GENERAL: Alert and oriented x3. NAD, on RA. Obese. HEENT: No pallor, no icterus. Pupils equal, round and reactive to light. Oral mucosa moist. NECK: No JVD, no neck masses. HEART: S1 and S2 heard. Regular rate and rhythm. No murmur, no gallop. RESPIRATORY SYSTEM: Normal AP diameter. No accessory muscle use. No wheezing, no crackles. ABDOMEN: Soft, bowel sounds present, nontender, no distention. CENTRAL NERVOUS SYSTEM: Alert and oriented x3. No facial droop. Speech is clear. Obeys simple commands. Moves extremities. EXTREMITIES: No edema, no erythema seen. BLE chronic skin changes. Urinary catheter in situ with yellow urine collection. Results & Data Results & Data ([facility]) Vital Signs (Past 12 Hours) Vital Signs Temp Pulse Pulse Resp BP BP Pulse Ox 06/11/21 20:25 37.0 C 68 18 106/61 92 06/11/21 16:00 36.8 C 72 20 124/65 93 06/11/21 15:06 72 06/11/21 11:16 37.1 C 77 20 118/69 90 06/11/21 09:45 67
[2021-06-12] MEDS: PIPERACILLIN/TAZOBACTAM 4.5 GM in DEXTROSE 5% 100 ML IV SCH ×3 (03:21→19:23)
[2021-06-12] MEDS: PANTOprazole 40 MG TAB PO SCH (05:55)
[2021-06-12 07:25] LABS: Hematocrit (blood only) 40.3 % (42-52); Hemoglobin 12.4 g/dL (14.0-18.0); Mean Corpuscular Hemoglobin 26.7 pg (25-34); Mean Corpuscular Hgb Conc 30.8 g/dL (32-36); Mean Corpuscular Volume 86.9 fL (80-100); Mean Platelet Volume 9.9 fL (7.4-10.4); Platelet Count 260 K/uL (130-400); RDW Coefficient of Variation 17.5 % (11.5-14.5); RDW Standard Deviation 55.4 fL (36.4-46.3); Red Blood Count 4.64 M/uL (4.7-6.1); White Blood Count 11.21 K/uL (4.8-10.8)
[2021-06-12 07:33] LABS: INR 1.5 (0.9-1.1); Prothrombin Time 14.4 Seconds (9.0-12.0)
[2021-06-12] MEDS: traMADol HCL 50 MG TABLET PO PRN ×3 (07:34→19:23)
[2021-06-12 08:00] LABS: BUN Creatinine Ratio 10.9 (10-20); Calcium 9.2 mg/dl (8.5-10.1); Creatinine Clr Calc Pharmacy 123.7 ml/min; Est GFR (African American) 78.8 ml/min; Magnesium 2.2 mg/dl (1.8-2.4); Potassium 3.7 mmol/L (3.5-5.1)
[2021-06-12] MEDS: TAMSULOSIN HCL 0.4 MG CAP PO SCH (08:40)
[2021-06-12] MEDS: SPIRONOLACTONE 25 MG TAB PO SCH (08:41)
[2021-06-12] MEDS: METHENAMINE HIPPURATE 1 GM TAB PO SCH (08:41)
[2021-06-12] MEDS: FINASTERIDE 5 MG TAB PO SCH (08:41)
[2021-06-12] MEDS: ISOSORBIDE MONO EXTENDED REL 30 MG TABCR PO SCH (08:41)
[2021-06-12] MEDS: ASPIRIN 81 MG ECTAB PO SCH (08:42)
[2021-06-12] MEDS: DULoxetine HCL 60 MG CAP PO SCH (08:42)
[2021-06-12] MEDS: FUROSEMIDE 40 MG TAB PO SCH ×2 (08:42→17:12)
[2021-06-12] MEDS: GABAPENTIN 800 MG TAB PO SCH ×3 (08:43→20:42)
[2021-06-12] MEDS: FLUTICASONE/VILANTEROL 100/25MCG 14 PUFFS/INHALER INH SCH (08:43)
[2021-06-12] MEDS: FOLIC ACID 1 MG TAB PO SCH (08:43)
[2021-06-12] MEDS: UMECLIDINIUM BROMIDE 62.5MCG/BLISTER 7 PUFFS/INHALER INH SCH (08:43)
[2021-06-12] MEDS: FLUTICASONE PROPIONATE NA SPR 16 GM BTL SCH (08:44)
[2021-06-12] MEDS: ADVANCED PROBIOTIC 1250 MG CAPSULE PO SCH ×3 (08:44→17:13)
[2021-06-12] MEDS: FAMOTIDINE 20 MG TAB PO SCH (08:44)
[2021-06-12] MEDS: METOPROLOL SUCC 25MG EXT REL TAB PO SCH ×2 (08:45→20:42)
[2021-06-12] MEDS: NICOTINE 21 MG/24 HR TDSY TD SCH (08:45)
[2021-06-12] MEDS: CYCLOBENZAPRINE HCL 10 MG TAB PO PRN ×2 (08:59→20:45)
[2021-06-12] MEDS: LORazepam 0.5 MG TAB PO PRN ×2 (08:59→16:01)
[2021-06-12] MEDS: DOCUSATE SODIUM 100 MG CAP PO SCH ×2 (09:00→20:46)
[2021-06-12] MEDS: INSULIN ASPART 100 UNITS/ML 3 ML PEN SC SCH ×4 (09:01→20:39)
[2021-06-12] MEDS: POLYETHYLENE (MIRALAX) 17 GM PACK PO SCH (09:06)
[2021-06-12] MEDS: POTASSIUM CHLORIDE CRTAB 20 MEQ TABCR PO SCH ×2 (09:07→20:45)
[2021-06-12] MEDS: buprenorphine HCL 8 MG SUBL SL SCH ×3 (09:07→20:36)
[2021-06-12] MEDS: WARFARIN SOD 2.5 MG TAB PO SCH (15:58)
--- NOTE | 2021-06-12 17:29 | Hospitalist Progress Note ---
Date of Service June 12, 2021 Assessment & Plan (1) Acute alteration in mental status: (2) Elevated INR: Plan: #. Alteration in mental status #. CAUTI Patient presented with change in mental status and generalized weakness with lethargy 1 to 2 days [employer] Likely secondary to UTI. Resolvedback to baseline mentation. Patient has chronic indwelling Lloyd catheter due to BPH. Follow-up appointment with the urologist on discharge. Urine culture growing E. coli, avoid culture and sensitivity. Currently on Zosyn, tailor once C/S is out #. Elevated INR At presentation 6.0, within therapeutic level 06/11. Resume home meds 06/11. Follow-up with Coumadin clinic and follow-up INR in 3 days upon discharge. #. DM type II: Continue with SSI #. History of pulmonary embolism: Resume warfarin #. Chronic pain disorder: Has been on tramadol and Suboxone, recent discharge note from [place] states he has been taking 100 mg tramadol every 6 hourly as needed. We will not change his medication regime during discharge. Patient has been noncompliant with home health and follow-up with MD appointments, [facility] denied. Disposition: PT recommending home health PT upon discharge. Likely discharge once urine culture and sensitivities. CM to assist with DC planning Admission and Anticipated Discharge Date Admission Date: June 11, 2021 Subjective Patient is lying in bed, on room air, NAD, no issues overnight. Patient complains of chronic back pain and knee pain. Patient denies any fever/headache/dizziness/other review of symptoms. Physical Exam Physical Exam: GENERAL: Alert and oriented x3. NAD, on RA. Obese. HEENT: No pallor, no icterus. Pupils equal, round and reactive to light. Oral mucosa moist. NECK: No JVD, no neck masses. HEART: S1 and S2 heard. Regular rate and rhythm. No murmur, no gallop. RESPIRATORY SYSTEM: Normal AP diameter. No accessory muscle use. No wheezing, no crackles. ABDOMEN: Soft, bowel sounds present, nontender, no distention. CENTRAL NERVOUS SYSTEM: Alert and oriented x3. No facial droop. Speech is clear. Obeys simple commands. Moves extremities. EXTREMITIES: No edema, no erythema seen. BLE chronic skin changes. Urinary catheter in situ with yellow urine collection. Results & Data Results & Data ([facility]) Vital Signs (Past 12 Hours) Vital Signs Temp Pulse Pulse Resp BP Pulse Ox 06/12/21 15:00 36.7 C 71 20 102/61 91 06/12/21 13:00 69 06/12/21 11:00 36.4 C L 72 20 122/69 94 06/12/21 07:38 60 06/12/21 07:00 36.6 C 61 20 95/59 L 95
[2021-06-12] MEDS: INSULIN GLARGINE SOLOSTAR 100 UNITS/ML 3 ML PEN SC SCH (20:40)
[2021-06-12] MEDS: ATORVASTATIN 40 MG TAB PO SCH (20:43)
[2021-06-13] MEDS: LORazepam 0.5 MG TAB PO PRN ×3 (00:19→20:57)
[2021-06-13] MEDS: traMADol HCL 50 MG TABLET PO PRN ×4 (01:15→21:53)
[2021-06-13] MEDS: PIPERACILLIN/TAZOBACTAM 4.5 GM in DEXTROSE 5% 100 ML IV SCH ×3 (04:41→20:41)
[2021-06-13] MEDS: PANTOprazole 40 MG TAB PO SCH (05:55)
[2021-06-13 07:26] LABS: Hematocrit (blood only) 41.9 % (42-52); Hemoglobin 12.9 g/dL (14.0-18.0); Mean Corpuscular Hemoglobin 27.1 pg (25-34); Mean Corpuscular Hgb Conc 30.8 g/dL (32-36); Mean Platelet Volume 10.4 fL (7.4-10.4); Platelet Count 287 K/uL (130-400); RDW Coefficient of Variation 17.2 % (11.5-14.5); RDW Standard Deviation 55.7 fL (36.4-46.3); Red Blood Count 4.76 M/uL (4.7-6.1); White Blood Count 11.47 K/uL (4.8-10.8)
[2021-06-13 07:47] LABS: INR 1.1 (0.9-1.1); Prothrombin Time 11.4 Seconds (9.0-12.0)
[2021-06-13] MEDS: ADVANCED PROBIOTIC 1250 MG CAPSULE PO SCH ×3 (08:06→16:48)
[2021-06-13] MEDS: TAMSULOSIN HCL 0.4 MG CAP PO SCH (08:06)
[2021-06-13] MEDS: METOPROLOL SUCC 25MG EXT REL TAB PO SCH ×2 (08:07→20:57)
[2021-06-13] MEDS: GABAPENTIN 800 MG TAB PO SCH ×3 (08:07→20:55)
[2021-06-13] MEDS: FAMOTIDINE 20 MG TAB PO SCH (08:07)
[2021-06-13] MEDS: FUROSEMIDE 40 MG TAB PO SCH ×2 (08:07→16:48)
[2021-06-13] MEDS: SPIRONOLACTONE 25 MG TAB PO SCH (08:07)
[2021-06-13] MEDS: METHENAMINE HIPPURATE 1 GM TAB PO SCH (08:08)
[2021-06-13] MEDS: UMECLIDINIUM BROMIDE 62.5MCG/BLISTER 7 PUFFS/INHALER INH SCH (08:08)
[2021-06-13] MEDS: FLUTICASONE/VILANTEROL 100/25MCG 14 PUFFS/INHALER INH SCH (08:08)
[2021-06-13] MEDS: FOLIC ACID 1 MG TAB PO SCH (08:08)
[2021-06-13] MEDS: ASPIRIN 81 MG ECTAB PO SCH (08:08)
[2021-06-13] MEDS: ISOSORBIDE MONO EXTENDED REL 30 MG TABCR PO SCH (08:08)
[2021-06-13] MEDS: DULoxetine HCL 60 MG CAP PO SCH (08:08)
[2021-06-13] MEDS: FLUTICASONE PROPIONATE NA SPR 16 GM BTL SCH (08:09)
[2021-06-13] MEDS: NICOTINE 21 MG/24 HR TDSY TD SCH (08:10)
[2021-06-13] MEDS: DOCUSATE SODIUM 100 MG CAP PO SCH ×2 (08:11→20:57)
[2021-06-13] MEDS: buprenorphine HCL 8 MG SUBL SL SCH ×3 (08:11→20:55)
[2021-06-13] MEDS: CYCLOBENZAPRINE HCL 10 MG TAB PO PRN ×2 (08:11→20:57)
[2021-06-13] MEDS: INSULIN ASPART 100 UNITS/ML 3 ML PEN SC SCH ×4 (08:17→21:01)
[2021-06-13] MEDS: FINASTERIDE 5 MG TAB PO SCH (08:18)
[2021-06-13] MEDS: POLYETHYLENE (MIRALAX) 17 GM PACK PO SCH (08:21)
[2021-06-13] MEDS: POTASSIUM CHLORIDE CRTAB 20 MEQ TABCR PO SCH ×2 (08:21→20:56)
--- NOTE | 2021-06-13 11:32 | XRay Report ---
XR knee RT 1 or 2V routine CLINICAL HISTORY: b/l knee pain, 2 view COMPARISON: Right tibia and fibula radiographs August 11, 2019. FINDINGS: Alignment of the right knee is anatomic. No acute fracture. No osseous lesion. Mild diffus e soft tissue swelling is noted. Joint spaces are preserved. There is minimal osteophytosis within th e patellofemoral compartment. Evaluation for joint effusion is difficult on this exam. IMPRESSION: 1. No acute fracture. 2. Mild osteoarthritis within the patellofemoral compartment. ACT 112: Negative or not required by law. Electronically signed by: Evelio Corbin M.D. 06/13/2021 11:31 AM
--- NOTE | 2021-06-13 11:45 | XRay Report ---
XR knee LT 1 or 2V routine CLINICAL HISTORY: Bilateral knee pain. COMPARISON: Left tibia and fibula radiographs August 11, 2019. FINDINGS: Diffuse soft tissue swelling is present. Alignment of the left knee is anatomic. No acute fracture. No definite joint effusion is noted. Joint spaces are preserved. IMPRESSION: No osseous abnormality of the left knee. ACT 112: Negative or not required by law. Electronically signed by: Evelio Corbin M.D. 06/13/2021 11:44 AM
[2021-06-13] MEDS ORDERED: WARFARIN SOD 5 MG TAB PO SCH (16:00)
[2021-06-13] MEDS ORDERED: WARFARIN SOD 2 MG TAB PO ONE (16:00)
--- NOTE | 2021-06-13 18:03 | Hospitalist Progress Note ---
Date of Service June 13, 2021 Assessment & Plan (1) Acute alteration in mental status: (2) Elevated INR: Plan: #. Alteration in mental status #. 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 Resolvedback to baseline mentation. Patient has chronic indwelling Lloyd catheter due to BPH. Follow-up appointment with the urologist on discharge. Urine culture growing GRam negative bacilli, await identification and C/S Currently on Zosyn, tailor once C/S is out #. Elevated INR At presentation 6.0, within therapeutic level 06/11. Resume home meds 06/11. INR subtherapeutic today, added 2 mg warfarin in addition to daily dose. Follow-up with Coumadin clinic and follow-up INR in 3 days upon discharge. #. DM type II: Continue with SSI #. History of pulmonary embolism: Resume warfarin #. Chronic pain disorder: Has been on tramadol and Suboxone, recent discharge note from [place] states he has been taking 100 mg tramadol every 6 hourly as needed. We will not change his medication regime during discharge. Patient has been noncompliant with home health and follow-up with MD appointments, [facility] denied. Disposition: PT recommending home health PT upon discharge. Likely discharge once urine culture and sensitivities. CM to assist with DC planning Admission and Anticipated Discharge Date Admission Date: June 11, 2021 Subjective Patient is lying in bed, on room air, NAD, no issues overnight. Patient complains of chronic back pain and knee pain. Bilateral knee x-ray WNL. Patient denies any fever/headache/dizziness/other review of symptoms. Physical Exam Physical Exam: GENERAL: Alert and oriented x3. NAD, on RA. Obese. HEENT: No pallor, no icterus. Pupils equal, round and reactive to light. Oral mucosa moist. NECK: No JVD, no neck masses. HEART: S1 and S2 heard. Regular rate and rhythm. No murmur, no gallop. RESPIRATORY SYSTEM: Normal AP diameter. No accessory muscle use. No wheezing, no crackles. ABDOMEN: Soft, bowel sounds present, nontender, no distention. CENTRAL NERVOUS SYSTEM: Alert and oriented x3. No facial droop. Speech is clear. Obeys simple commands. Moves extremities. EXTREMITIES: No edema, no erythema seen. BLE chronic skin changes. Urinary catheter in situ with yellow urine collection. Results & Data Results & Data ([facility]) Vital Signs (Past 12 Hours) Vital Signs Temp Pulse Pulse Resp BP Pulse Ox 06/13/21 15:57 37.0 C 65 16 118/62 93 06/13/21 15:02 72 06/13/21 11:41 36.9 C 63 16 109/56 L 92 06/13/21 10:07 60 06/13/21 08:22 36.6 C 60 16 109/55 L 97
[2021-06-13] MEDS: ATORVASTATIN 40 MG TAB PO SCH (20:56)
[2021-06-13] MEDS: INSULIN GLARGINE SOLOSTAR 100 UNITS/ML 3 ML PEN SC SCH (21:00)
[2021-06-14] MEDS: PIPERACILLIN/TAZOBACTAM 4.5 GM in DEXTROSE 5% 100 ML IV SCH (04:04)
[2021-06-14 04:55] VITALS: O2SAT 98
[2021-06-14] MEDS: traMADol HCL 50 MG TABLET PO PRN (05:13)
[2021-06-14] MEDS: PANTOprazole 40 MG TAB PO SCH (06:07)
[2021-06-14 06:51] LABS: INR 1.2 (0.9-1.1); Prothrombin Time 11.9 Seconds (9.0-12.0)
[2021-06-14 08:18] VITALS: PULSE 62; TEMP 97.7
[2021-06-14] MEDS: ADVANCED PROBIOTIC 1250 MG CAPSULE PO SCH (08:23)
[2021-06-14] MEDS: NICOTINE 21 MG/24 HR TDSY TD SCH (08:23)
[2021-06-14] MEDS: GABAPENTIN 800 MG TAB PO SCH (08:24)
[2021-06-14] MEDS: FUROSEMIDE 40 MG TAB PO SCH (08:24)
[2021-06-14] MEDS: METOPROLOL SUCC 25MG EXT REL TAB PO SCH (08:24)
[2021-06-14] MEDS: SPIRONOLACTONE 25 MG TAB PO SCH (08:25)
[2021-06-14] MEDS: FOLIC ACID 1 MG TAB PO SCH (08:25)
[2021-06-14] MEDS: ASPIRIN 81 MG ECTAB PO SCH (08:25)
[2021-06-14] MEDS: DULoxetine HCL 60 MG CAP PO SCH (08:25)
[2021-06-14] MEDS: FINASTERIDE 5 MG TAB PO SCH (08:25)
[2021-06-14] MEDS: ISOSORBIDE MONO EXTENDED REL 30 MG TABCR PO SCH (08:25)
[2021-06-14] MEDS: TAMSULOSIN HCL 0.4 MG CAP PO SCH (08:26)
[2021-06-14] MEDS: METHENAMINE HIPPURATE 1 GM TAB PO SCH (08:26)
[2021-06-14] MEDS: FAMOTIDINE 20 MG TAB PO SCH (08:26)
[2021-06-14] MEDS: FLUTICASONE PROPIONATE NA SPR 16 GM BTL SCH (08:26)
[2021-06-14] MEDS: FLUTICASONE/VILANTEROL 100/25MCG 14 PUFFS/INHALER INH SCH (08:27)
[2021-06-14] MEDS: UMECLIDINIUM BROMIDE 62.5MCG/BLISTER 7 PUFFS/INHALER INH SCH (08:27)
[2021-06-14] MEDS: buprenorphine HCL 8 MG SUBL SL SCH (08:33)
[2021-06-14] MEDS: DOCUSATE SODIUM 100 MG CAP PO SCH (08:33)
[2021-06-14] MEDS: POTASSIUM CHLORIDE CRTAB 20 MEQ TABCR PO SCH (08:33)
[2021-06-14] MEDS: POLYETHYLENE (MIRALAX) 17 GM PACK PO SCH (08:33)
[2021-06-14] MEDS: LORazepam 0.5 MG TAB PO PRN (08:33)
[2021-06-14] MEDS: CYCLOBENZAPRINE HCL 10 MG TAB PO PRN (08:33)
[2021-06-14] MEDS: INSULIN ASPART 100 UNITS/ML 3 ML PEN SC SCH (08:37)
[2021-06-14 10:29] VITALS: BP 115/63
--- NOTE | 2021-06-14 14:28 | Discharge Summary ---
Date of Service June 14, 2021 Admission HPI Per Admitting Provider CHIEF COMPLAINT: Altered mental status. HISTORY OF PRESENT ILLNESS: This 50-year-old male with past medical history significant for recurrent PE, on Coumadin, complicated bronchitis, COPD, history of recurrent UTI secondary to BPH, chronic indwelling Lloyd catheter, on chronic methenamine suppression, type 2 diabetes, history of traumatic subdural hematoma, subarachnoid hemorrhage in the setting of Coumadin coagulopathy, history of chronic diastolic congestive heart failure, CAD, hypertension, hyperlipidemia, chronic pain, history of drug seeking behavior, history of ongoing tobacco abuse, multiple medical admissions, was brought in because of altered mental status. The patient was in the hospital last month and at that time was having sepsis from UTI and right foot cellulitis, was treated with an tibiotics, initially doxycycline and Zosyn and then later Augmentin and Levaquin as per cultures. He did okay and he was discharged to rehab. At that time, he also had some dysphagia related to esophageal dysmotility. Discharged to rehab and currently back at home. Daughter is in the room. As per the daughter today he was confused at home. He was repeating the same thing and when his brou ght him food, he was asking what it is, and he did not know how to on the internet. So they were worried and brought him here. Initially there was a question of taking gabapentin overdose, but that seems to be not the case. His white count is 15. In the ER, INR was 6.6. Urine looks infected, but he has chronic UTIs, probable colonization from his Lloyd. Drug screen was okay. SARS-CoV-[address] of the head preliminary report was okay. The patient currently sitting in chair. Alert and oriented x3. Speech is clear. Answers all questions appropriately. He does not know what happened, or why he was forgetful today. It seems he is still not fully back to normal. Denies any fevers. He says he has headache on and off, blurred visions on and off, runny nose on and off, cough on and off, chest pain on and off, shortness of breath on and off, abdominal pain on and off, diarrhea on and off. Denies any hematuria, no blood in stool or black stools. Has lower extremity edema, uses oxygen at nighttime. Currently, hemodynamically stable. ALLERGIES: CEFEPIME, DAPTOMYCIN, FENTANYL, LANOXIN, TYLENOL, IBUPROFEN, VALPROIC ACID. PAST MEDICAL HISTORY: As mentioned above. PAST SURGICAL HISTORY: Colonoscopy, EGDs, EGD with endoscopic ultrasound, foot surgery, repair of left finger tendon, repair of the left hand joint. MEDICATIONS: The patient is on albuterol 2 puffs inhalation q. 4 hours p.r.n., aspirin 81 mg p.o. daily, atorvastatin 80 mg p.o. p.m., Breo Ellipta 1 inhalation daily, buprenorphine 8 mg sublingual t.i.d., cyclobenzaprine 10 mg p.o. b.i.d. p.r.n., Colace 100 mg p.o. b.i.d., duloxetine 60 mg p.o. daily, famotidine 20 mg p.o. daily, finasteride 5 mg p.o. a.m., Flonase 2 sprays intranasal daily, folic acid 1 mg p.o. a.m., Lasix 40 mg p.o. b.i.d., gabapentin 800 mg p.o. t.i.d., glipizide 10 mg p.o. b.i.d., hydroxyzine 25 mg p.o. q.i.d. p.r.n., DuoNebs q. 6 hours p.r.n., isosorbide mononitrate 30 mg p.o. daily, Lactinex 1 tablet p.o. b.i.d., Lantus 15 units subcutaneous at bedtime, Ativan 0.5 mg p.o. t.i.d. p.r.n., methenamine hippurate 1 gram p.o. daily, metoprolol succinate 75 mg p.o. b.i.d., nicotine 1 patch daily, nitroglycerin 0.4 mg sublingual p.r.n., nystatin topical t.i.d., omeprazole 20 mg p.o. daily, Zofran 4 mg p.o. q. 8 hours p.r.n., MiraLax 17 g p.o. daily, potassium chloride 20 mEq p.o. b.i.d., Senna 8.6 mg p.o. daily p.r.n., Spiriva HandiHaler 1 puff inhalation a.m., spironolactone 25 mg p.o. a.m., Flomax 0.4 mg p.o. a.m., tramadol 100 mg p.o. q. 8 hours, warfarin as directed. FAMILY HISTORY: Significant for sister has breast cancer; mother has musculoskeletal disorder, father has aneurysm. Maternal grandfather had heart disorder, maternal grandmother has heart disorder. SOCIAL HISTORY: Smokes 2 packs a day for last 32 years, currently smoking 1 pack a day. Not drinking alcohol currently. History of DUIs in the past. History of opiate dependence. REVIEW OF SYSTEMS: As per HPI. Rest of the review of systems is negative. Admission Exam Per Admitting Provider GENERAL: The patient is morbidly obese, not in acute distress. VITAL SIGNS: Temperature 36.6, pulse 84, respiratory rate 15, blood pressure 152/70, oxygen 95% on room air. HEENT: Pupils equal, round and reactive to light. Oral mucosa moist. NECK: No JVD. No neck masses. CARDIOVASCULAR: S1 and S2 heard, regular. No murmur, no gallop. RESPIRATORY SYSTEM: Normal AP diameter. No accessory muscle use. No wheezing, no crackles. ABDOMEN: Soft, bowel sounds present, nontender, no distention. CENTRAL NERVOUS SYSTEM: Alert and oriented x3. Speech is clear. No facial droop. Moves extremities. EXTREMITIES: Bilateral lower extremity gross pedal edema present. SKIN: Bruising on the left side of the back and also scratch wound seen on the right lower extremity sandhu region. Principal Diagnosis CAUTI Discharge Exam GENERAL: Alert and oriented x3. NAD, on RA. Obese. HEENT: No pallor, no icterus. Pupils equal, round and reactive to light. Oral mucosa moist. NECK: No JVD, no neck masses. HEART: S1 and S2 heard. Regular rate and rhythm. No murmur, no gallop. RESPIRATORY SYSTEM: Normal AP diameter. No accessory muscle use. No wheezing, no crackles. ABDOMEN: Soft, bowel sounds present, nontender, no distention. CENTRAL NERVOUS SYSTEM: Alert and oriented x3. No facial droop. Speech is clear. Obeys simple commands. Moves extremities. EXTREMITIES: No edema, no erythema seen. BLE chronic skin changes. Urinary catheter in situ with yellow urine collection. Discharge Data Allergies Allergy/AdvReac Type Severity Reaction Status Date / Time cefepime Allergy Intermediate rash Verified 06/09/21 01:46 daptomycin Allergy Intermediate rash Verified 06/09/21 01:46 fentanyl Allergy Intermediate RASH/HIVES/SKIN Verified 06/09/21 01:46 REDNESS naloxone AdvReac Severe extremely Verified 06/09/21 01:46 sick acetaminophen [From Tylenol] AdvReac Intermediate IRRITATES Verified 06/09/21 01:46 & UPSET STOMACH ibuprofen AdvReac Intermediate Nausea Verified 06/09/21 01:46 valproic acid AdvReac Intermediate PANCREATITS Verified 06/09/21 01:46 Consultations 06/09/21 02:14 ED Decision to Admit Stat Ordered Studies 06/08/21 23:54 CT head/brain wo con Urgent Hospital Course (1) Acute alteration in mental status: (2) Elevated INR: 50-year-old male with past medical history significant for recurrent PE, on Coumadin, complicated bronchitis, COPD, history of recurrent UTI secondary to BPH, chronic indwelling Lloyd catheter, on chronic methenamine suppression, type 2 diabetes, history of traumatic subdural hematoma, subarachnoid hemorrhage in the setting of Coumadin coagulopathy, history of chronic diastolic congestive heart failure, CAD, hypertension, hyperlipidemia, chronic pain, history of drug seeking behavior, history of ongoing tobacco abuse, multiple medical admissions, was brought in because of altered mental status secondary to CAUTI. He was managed for the following: #. Alteration in mental status #. 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 Resolvedback to baseline mentation. Patient has chronic indwelling Lloyd catheter due to BPH. Follow-up appointment with the urologist on discharge. Patient received 5 days worth of Zosyn, will discharge him on 2 days of Levaquin. Patient to follow-up with his primary care doctor within a week time. #. Elevated INR At presentation 6.0, within therapeutic level 06/11. Resume home meds 06/11. INR subtherapeutic today but uptrending, expect to be therapeutic in 2 to 3 days. Follow-up with Coumadin clinic and follow-up INR in 3 days upon discharge. #. DM type II: Continue with SSI #. History of pulmonary embolism: Resume warfarin #. Chronic pain disorder: Has been on tramadol and Suboxone, recent discharge note from [place] states he has been taking 100 mg tramadol every 6 hourly as needed. We will not change his medication regime during discharge. Patient has been noncompliant with home health and follow-up with MD appointments, [facility] denied. He does not want his outpatient appointments to be set up by the hospital. He states he will set them up himself. He is aware of the follow-up requirement timings after discharge. He was discharged to home with following instruction at the time discharge: Follow-up with your primary care physician within a week time. Follow-up with Coumadin clinic and get INR done in 3 days time. Follow-up with your urologist in a month. Complete 2 more days of antibiotic. Take medications as prescribed. Total Time Total Time Spent Total Time Spent (In Minutes): 50 Discharge Plan Discharge Items Patient Disposition: Home - Self-Care Reason For Visit: AMS Discharge Diagnosis: CAUTI Condition on Discharge: Good Activity: Resume your previous activity Non-emergency contact: Primary Care Provider Call non-emergency contact if: you have any medication questions, your symptoms worsen, your pain is not controlled and your temperature is above 101 Follow-up/Referrals: Roberto Askew MD [Primary Care Provider] - Diet: Carb Consistent or DM2 and Heart Healthy Addtl Attending Provider Instructions: Follow-up with your primary care physician within a week time. Follow-up with Coumadin clinic and get INR done in 3 days time. Follow-up with your urologist in a month. Complete 2 more days of antibiotic. Take medications as prescribed. Pending Studies at Discharge: Yes (Final result on 06/10 urine culture) Stand-Alone Forms: [employer], Smoking Cessation Medications and DC Order Prescriptions: New levofloxacin 750 mg tablet 750 mg PO DAILY 2 Days Qty: 2 RF: 0 Continued ondansetron HCl [Zofran] 4 mg tablet 4 mg PO Q8 PRN (Reason: Nausea And Vomiting) Qty: 30 RF: 0 polyethylene glycol 3350 [Miralax] 17 gram powder in packet 17 g PO QAM RF: 0 nitroglycerin [Nitrostat] 0.4 mg tablet, sublingual 0.4 mg Sublingual DIRECTED PRN (Reason: CHEST PAIN) RF: 0 nystatin 100,000 unit/gram Powder 1 applic TOPICAL TID PRN (Reason: Skin Irritation) RF: 0 cyclobenzaprine 10 mg Tablet 10 mg PO BID PRN (Reason: Muscle Spasm) RF: 0 ipratropium-albuterol 0.5 mg-3 mg(2.5 mg base)/3 mL Solution For Nebulization 3 ml INHALATION Q6H PRN (Reason: Shortness Of Breath Or Wheezing) RF: 0 docusate sodium 100 mg Capsule 100 mg PO BID RF: 0 Lactinex 1 million cell Tablet,Chewable 1 tab PO BID RF: 0 duloxetine 60 mg capsule,delayed release(DR/EC) 60 mg PO DAILY RF: 0 famotidine 20 mg tablet 20 mg PO DAILY RF: 0 methenamine hippurate 1 gram tablet 1 g PO DAILY RF: 0 hydroxyzine HCl 25 mg tablet 25 mg PO QID PRN (Reason: Anxiety) RF: 0 fluticasone propionate 50 mcg/actuation spray,suspension 2 spray Intranasal DAILY RF: 0 aspirin [Ecotrin Low Strength] 81 mg tablet,delayed release (DR/EC) 81 mg PO QAM RF: 0 Spiriva with HandiHaler 18 mcg capsule, w/inhalation device 1 puff inhalation QAM RF: 0 finasteride 5 mg tablet 5 mg PO QAM RF: 0 tamsulosin [Flomax] 0.4 mg Capsule 0.4 mg PO QAM RF: 0 metoprolol succinate 50 mg Tablet Extended Release 24 Hr 75 mg PO BID RF: 0 spironolactone 25 mg Tablet 25 mg PO QAM RF: 0 atorvastatin 80 mg tablet 80 mg PO QPM RF: 0 sennosides [senna] 8.6 mg Tablet 8.6 mg PO DAILY PRN (Reason: Constipation) RF: 0 folic acid 1 mg Tablet 1 mg PO QAM RF: 0 furosemide [Lasix] 40 mg tablet 40 mg PO BID RF: 0 lorazepam 0.5 mg tablet 0.5 mg PO Q8 PRN (Reason: Anxiety) RF: 0 potassium chloride 20 mEq Tablet Extended Release 20 meq PO BID RF: 0 albuterol sulfate 90 mcg/actuation Hfa Aerosol Inhaler 2 puff INHALATION Q4 PRN (Reason: Dyspnea) RF: 0 omeprazole 20 mg Capsule,Delayed Release(Dr/Ec) 20 mg PO DAILYBB RF: 0 gabapentin 800 mg tablet 800 mg PO TID RF: 0 warfarin 5 mg tablet 0 mg PO DIRECTED RF: 0 buprenorphine HCl 8 mg tablet, sublingual 8 mg SUBLINGUAL TID RF: 0 isosorbide mononitrate 30 mg Tablet Extended Release 24 Hr 30 mg PO DAILY RF: 0 glipizide 10 mg tablet 10 mg PO BID RF: 0 Lantus Solostar U-100 Insulin 100 unit/mL (3 mL) Insulin Pen 50 unit SC HS 30 Days Qty: 15 RF: 3 Breo Ellipta 100-25 mcg/dose Blister With Device 1 ea inhalation DAILY Qty: 28 RF: 2 (DME) insulin admin supplies Insulin Pen See Rx Instructions .ROUTE .MEDSUPPLY Qty: 1 RF: 0 nicotine 21 mg/24 hr patch 24 hour 1 patch transdermal DAILY Qty: 28 RF: 0 Lactinex 1 million cell tablet,chewable 1 tab PO TID Qty: 30 RF: 0 tramadol 100 mg tablet 100 mg PO Q8H PRN (Reason: pain) 5 Days Qty: 15 RF: 0 Discharge Orders: Discharge Order (Routine); Ordered 06/14/21 Ordered By: Henrietta Pickering/Other Patient Handouts: Hypoglycemia (Low Blood Sugar), Managing Type 2 Diabetes, 5 Steps for Eating Healthier, Special Foot Care for Diabetes Admission Data Admit Date/Time: 06/11/21 15:27 Attending Provider: Henrietta Gomez Admit Provider: Everardo Ibarra Primary Care Provider: Roberto Askew Other Providers: Everardo Ibarra Other Interventions: Discharge Summary Assessment (RN) Last Done: 06/14/21 10:27
== END 2021-06-14 11:41 | disposition home or self-care (01) | DRG 699 ==
LOC: ED 23:18 → 2W 23:18 → SUATTDRO 06-09 03:26 → 2W 06-09 04:26
DX: G89.29 Other chronic pain; E11.9 Type 2 diabetes mellitus without complications; Z20.822 Contact with and (suspected) exposure to COVID-19; Z88.8 Allergy status to other drugs, medicaments and biological substances; N40.0 Benign prostatic hyperplasia without lower urinary tract symptoms; Z86.711 Personal history of pulmonary embolism; I50.32 Chronic diastolic (congestive) heart failure; J44.9 Chronic obstructive pulmonary disease, unspecified; B96.20 Unspecified Escherichia coli [E. coli] as the cause of diseases classified elsewhere; Z79.899 Other long term (current) drug therapy; Y84.6 Urinary catheterization as the cause of abnormal reaction of the patient, or of later complication, without mention of misadventure at the time of the procedure; Z88.5 Allergy status to narcotic agent; F17.210 Nicotine dependence, cigarettes, uncomplicated; Z79.82 Long term (current) use of aspirin; Z88.6 Allergy status to analgesic agent; N39.0 Urinary tract infection, site not specified; R79.1 Abnormal coagulation profile; Z68.43 Body mass index [BMI] 50.0-59.9, adult; E66.01 Morbid (severe) obesity due to excess calories; T83.511A Infection and inflammatory reaction due to indwelling urethral catheter, initial encounter; Z79.01 Long term (current) use of anticoagulants

== ENCOUNTER 2021-07-05 01:36 | Inpatient (IN) ==
[2021-07-05 02:33] LABS: Basophils # (auto) 0.03 K/uL (0-0.2); Basophils % (auto) 0.2 %; Eosinophils # (auto) 0.57 K/uL (0-0.5); Eosinophils % (auto) 3.9 %; Hematocrit (blood only) 40.8 % (42-52); Hemoglobin 12.8 g/dL (14.0-18.0); Immature Granulocytes # (auto) 0.04 K/uL (0.00-0.02); Immature Granulocytes % (auto) 0.3 %; Lymphocytes # (auto) 2.94 K/uL (1.2-3.4); Lymphocytes % (auto) 20.3 %; Mean Corpuscular Hemoglobin 26.4 pg (25-34); Mean Corpuscular Hgb Conc 31.4 g/dL (32-36); Mean Corpuscular Volume 84.1 fL (80-100); Mean Platelet Volume 9.4 fL (7.4-10.4); Monocytes # (auto) 0.78 K/uL (0.11-0.59); Monocytes % (auto) 5.4 %; Neutrophils # (auto) 10.15 K/uL (1.4-6.5); Neutrophils % (auto) 69.9 %; Platelet Count 291 K/uL (130-400); RDW Coefficient of Variation 17.8 % (11.5-14.5); RDW Standard Deviation 54.7 fL (36.4-46.3); Red Blood Count 4.85 M/uL (4.7-6.1); White Blood Count 14.51 K/uL (4.8-10.8)
[2021-07-05 02:51] LABS: Alanine Aminotransferase 14 U/L (12-78); Albumin Level 2.8 gm/dl (3.4-5.0); Aspartate Aminotransferase 14 U/L (15-37); BUN Creatinine Ratio 5.7 (10-20); Blood Urea Nitrogen 6 mg/dl (7-18); Calcium 9.2 mg/dl (8.5-10.1); Carbon Dioxide 33 mmol/L (21-32); Chloride 102 mmol/L (98-107); Creatinine Clr Calc Pharmacy 158.6 ml/min; Est GFR (African American) 100.1 ml/min; Est GFR (Non-African American) 86.3 ml/min; Glucose 160 mg/dl (70-99); Sodium 137 mmol/L (136-145)
[2021-07-05 02:56] LABS: Albumin Globulin Ratio 0.6 (0.9-2); Alkaline Phosphatase 131 U/L (45-117); Bilirubin,Total 0.6 mg/dl (0.2-1); Globulin 4.7 gm/dl (2.5-4.0); INR 2.2 (0.9-1.1); NT Pro B Type Natriuretic Pept 135 pg/ml (0-900); Partial Thromboplastin Ratio 1.8; Prothrombin Time 21.1 Seconds (9.0-12.0); Total Protein 7.5 gm/dl (6.4-8.2); Troponin I < 0.015 ng/ml (0-0.045)
[2021-07-05 03:23] LABS: Partial Thromboplastin Time 46.1 Seconds (21.0-31.0)
[2021-07-05] MEDS ORDERED: FUROSEMIDE 40 MG/4 ML VIAL IV STA (03:55)
[2021-07-05] MEDS ORDERED: ALBUT/IPRATROP 3MG/0.5MG NEB 3 ML VIAL NEB STA (03:57)
[2021-07-05] MEDS ORDERED: methylPREDNISolone 125 MG/2 ML VIAL IV STA (03:57)
[2021-07-05 04:03] LABS: Allen Test Pos (Pos); Base Excess ABG 5.8 mEq/L (-9-1.8); HCO3 ABG 30 mmol/L (19-24); Oxygen Saturation ABG 94.1 % (90-95); PCO2 ABG 41 mmHg (35-46); PO2 ABG 65 mmHg (80-95); pH ABG 7.48 (7.35-7.45)
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
[2021-07-05] MEDS ORDERED: NYSTATIN POWDER 15GM BTL EXT PRN (06:05)
[2021-07-05] MEDS ORDERED: NITROGLYCERIN SL 0.4 MG/TAB TAB SL PRN ×2 (06:05)
[2021-07-05] MEDS ORDERED: POLYETHYLENE (MIRALAX) 17 GM PACK PO PRN (06:05)
[2021-07-05] MEDS ORDERED: ALBUT/IPRATROP 3MG/0.5MG NEB 3 ML VIAL INH PRN (06:05)
[2021-07-05] MEDS ORDERED: ALBUTEROL HFA 8 GM INHALER INH PRN (06:05)
[2021-07-05] MEDS ORDERED: ACETAMINOPHEN 325 MG TAB PO PRN (06:05)
[2021-07-05] MEDS ORDERED: traMADol HCL 50 MG TABLET PO STA (06:06)
[2021-07-05] MEDS ORDERED: ONDANSETRON 4 MG OD TAB PO PRN (07:10)
[2021-07-05] MEDS: ALBUT/IPRATROP 3MG/0.5MG NEB 3 ML VIAL NEB SCH ×3 (07:11→19:21)
[2021-07-05] MEDS: INSULIN ASPART 100 UNITS/ML 3 ML PEN SC SCH ×4 (08:10→20:09)
[2021-07-05] MEDS: METHENAMINE HIPPURATE 1 GM TAB PO SCH (08:11)
[2021-07-05] MEDS: FINASTERIDE 5 MG TAB PO SCH (08:12)
[2021-07-05] MEDS: SPIRONOLACTONE 25 MG TAB PO SCH (08:13)
[2021-07-05] MEDS: ASPIRIN 81 MG ECTAB PO SCH (08:13)
[2021-07-05] MEDS: DOCUSATE SODIUM 100 MG CAP PO SCH ×2 (08:14→20:27)
[2021-07-05] MEDS: ISOSORBIDE MONO EXTENDED REL 30 MG TABCR PO SCH (08:14)
[2021-07-05] MEDS: POLYETHYLENE (MIRALAX) 17 GM PACK PO SCH (08:14)
[2021-07-05] MEDS: DULoxetine HCL 60 MG CAP PO SCH (08:14)
[2021-07-05] MEDS: POTASSIUM CHLORIDE CRTAB 20 MEQ TABCR PO SCH ×2 (08:14→20:20)
[2021-07-05] MEDS: FOLIC ACID 1 MG TAB PO SCH (08:15)
[2021-07-05] MEDS: METOPROLOL SUCC 25MG EXT REL TAB PO SCH ×2 (08:15→20:27)
[2021-07-05] MEDS: FAMOTIDINE 20 MG TAB PO SCH (08:15)
[2021-07-05] MEDS: PANTOprazole 40 MG TAB PO SCH (08:15)
[2021-07-05] MEDS: GABAPENTIN 800 MG TAB PO SCH ×3 (08:16→20:08)
[2021-07-05] MEDS: ADVANCED PROBIOTIC 1250 MG CAPSULE PO SCH ×3 (08:16→20:08)
[2021-07-05] MEDS: TAMSULOSIN HCL 0.4 MG CAP PO SCH (08:16)
[2021-07-05] MEDS: NICOTINE 21 MG/24 HR TDSY TD SCH (08:17)
[2021-07-05] MEDS: FLUTICASONE PROPIONATE NA SPR 16 GM BTL SCH (08:18)
[2021-07-05] MEDS: FLUTICASONE/VILANTEROL 100/25MCG 14 PUFFS/INHALER INH SCH (08:18)
[2021-07-05] MEDS: UMECLIDINIUM BROMIDE 62.5MCG/BLISTER 7 PUFFS/INHALER INH SCH (08:18)
[2021-07-05] MEDS: FUROSEMIDE 40 MG in SYRINGE 0 ML IV SCH ×2 (08:19→20:27)
[2021-07-05] MEDS: buprenorphine HCL 8 MG SUBL SL SCH ×3 (08:22→20:20)
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
[2021-07-05] MEDS: LORazepam 0.5 MG TAB PO PRN ×2 (08:44→20:20)
--- NOTE | 2021-07-05 08:53 | XRay Report ---
XR chest 1V portable CLINICAL HISTORY: Dyspnea COMPARISON STUDY: Chest radiograph August 08, 2020 1. FINDINGS: Lung volumes are normal. No pneumothorax or pleural effusion is noted. Cardiomegaly and pro bably vascular congestion are unchanged. Apparent hazy bibasilar opacities are unchanged. IMPRESSION: No significant change in appearance of the chest. Cardiomegaly, pulmonary vascular conge stion and hazy bibasilar opacities. ACT 112: Negative or not required by law. Electronically signed by: Evelio Corbin M.D. 07/05/2021 8:52 AM
[2021-07-05] MEDS ORDERED: FUROSEMIDE 40 MG/4 ML VIAL IV SCH ×2 (09:00)
[2021-07-05] MEDS: ATORVASTATIN 40 MG TAB PO SCH (11:57)
--- NOTE | 2021-07-05 13:53 | Electrocardiogram Report ---
Test Reason : Blood Pressure : / mmHG Vent. Rate : 109 BPM Atrial Rate : 109 BPM P-R Int : 156 ms QRS Dur : 104 ms QT Int : 336 ms P-R-T Axes : 039 033 048 degrees QTc Int : 452 ms Sinus tachycardia Incomplete right bundle branch block Abnormal ECG When compared with ECG of 09-JUN-2021 11:12, No significant change was found Confirmed by Bobby Proctor ([id number]) on 07/05/2021 1:52:41 PM Referred By: REFERRED SELF Confirmed By:Bobby Proctor
[2021-07-05] MEDS: WARFARIN SOD 2.5 MG TAB PO SCH (15:46)
[2021-07-05] MEDS: traMADol HCL 50 MG TABLET PO PRN (19:33)
[2021-07-05] MEDS: SENNA 8.6 MG TAB PO PRN (20:08)
[2021-07-05] MEDS: INSULIN GLARGINE SOLOSTAR 100 UNITS/ML 3 ML PEN SC SCH (20:11)
[2021-07-05] MEDS: CYCLOBENZAPRINE HCL 10 MG TAB PO PRN (20:25)
[2021-07-06] MEDS: traMADol HCL 50 MG TABLET PO PRN ×4 (04:37→23:00)
[2021-07-06] MEDS: PANTOprazole 40 MG TAB PO SCH (05:38)
[2021-07-06] MEDS: ALBUT/IPRATROP 3MG/0.5MG NEB 3 ML VIAL NEB SCH ×3 (07:35→19:31)
[2021-07-06 08:14] LABS: Basophils # (auto) 0.03 K/uL (0-0.2); Basophils % (auto) 0.2 %; Eosinophils # (auto) 0.07 K/uL (0-0.5); Eosinophils % (auto) 0.4 %; Hematocrit (blood only) 42.1 % (42-52); Hemoglobin 13.3 g/dL (14.0-18.0); Immature Granulocytes # (auto) 0.05 K/uL (0.00-0.02); Immature Granulocytes % (auto) 0.3 %; Lymphocytes # (auto) 3.23 K/uL (1.2-3.4); Lymphocytes % (auto) 16.5 %; Mean Corpuscular Hemoglobin 26.5 pg (25-34); Mean Corpuscular Hgb Conc 31.6 g/dL (32-36); Mean Platelet Volume 9.7 fL (7.4-10.4); Monocytes # (auto) 1.34 K/uL (0.11-0.59); Monocytes % (auto) 6.9 %; Neutrophils % (auto) 75.7 %; Platelet Count 305 K/uL (130-400); RDW Coefficient of Variation 17.6 % (11.5-14.5); RDW Standard Deviation 54.1 fL (36.4-46.3); Red Blood Count 5.01 M/uL (4.7-6.1); White Blood Count 19.52 K/uL (4.8-10.8)
[2021-07-06 08:26] LABS: INR 1.4 (0.9-1.1)
[2021-07-06 08:32] LABS: BUN Creatinine Ratio 18.2 (10-20); Calcium 9.5 mg/dl (8.5-10.1); Creatinine Clr Calc Pharmacy 181.4 ml/min; Est GFR (African American) 116.1 ml/min; Est GFR (Non-African American) 100.2 ml/min; Magnesium 2.4 mg/dl (1.8-2.4); Potassium 4.1 mmol/L (3.5-5.1)
[2021-07-06] MEDS: INSULIN ASPART 100 UNITS/ML 3 ML PEN SC SCH ×4 (08:40→21:49)
[2021-07-06] MEDS: TAMSULOSIN HCL 0.4 MG CAP PO SCH (08:49)
[2021-07-06] MEDS: FUROSEMIDE 40 MG in SYRINGE 0 ML IV SCH ×2 (08:49→17:29)
[2021-07-06] MEDS: NICOTINE 21 MG/24 HR TDSY TD SCH (08:50)
[2021-07-06] MEDS: METOPROLOL SUCC 25MG EXT REL TAB PO SCH ×2 (08:50→21:40)
[2021-07-06] MEDS: DOCUSATE SODIUM 100 MG CAP PO SCH ×2 (08:50→21:44)
[2021-07-06] MEDS: FINASTERIDE 5 MG TAB PO SCH (08:51)
[2021-07-06] MEDS: ATORVASTATIN 40 MG TAB PO SCH (08:51)
[2021-07-06] MEDS: FAMOTIDINE 20 MG TAB PO SCH (08:52)
[2021-07-06] MEDS: DULoxetine HCL 60 MG CAP PO SCH (08:52)
[2021-07-06] MEDS: METHENAMINE HIPPURATE 1 GM TAB PO SCH (08:52)
[2021-07-06] MEDS: SENNA 8.6 MG TAB PO PRN (08:52)
[2021-07-06] MEDS: ASPIRIN 81 MG ECTAB PO SCH (08:53)
[2021-07-06] MEDS: ISOSORBIDE MONO EXTENDED REL 30 MG TABCR PO SCH (08:53)
[2021-07-06] MEDS: GABAPENTIN 800 MG TAB PO SCH ×3 (08:53→21:39)
[2021-07-06] MEDS: SPIRONOLACTONE 25 MG TAB PO SCH (08:54)
[2021-07-06] MEDS: POTASSIUM CHLORIDE CRTAB 20 MEQ TABCR PO SCH ×2 (08:55→21:40)
[2021-07-06] MEDS: ADVANCED PROBIOTIC 1250 MG CAPSULE PO SCH ×3 (08:56→21:38)
[2021-07-06] MEDS: FOLIC ACID 1 MG TAB PO SCH (08:56)
[2021-07-06] MEDS: FLUTICASONE/VILANTEROL 100/25MCG 14 PUFFS/INHALER INH SCH (08:57)
[2021-07-06] MEDS: FLUTICASONE PROPIONATE NA SPR 16 GM BTL SCH (08:57)
[2021-07-06] MEDS: POLYETHYLENE (MIRALAX) 17 GM PACK PO SCH (08:58)
[2021-07-06] MEDS: UMECLIDINIUM BROMIDE 62.5MCG/BLISTER 7 PUFFS/INHALER INH SCH (08:58)
[2021-07-06] MEDS: LORazepam 0.5 MG TAB PO PRN ×2 (09:02→21:44)
[2021-07-06] MEDS: CYCLOBENZAPRINE HCL 10 MG TAB PO PRN (09:02)
[2021-07-06] MEDS: buprenorphine HCL 8 MG SUBL SL SCH ×3 (09:03→21:44)
[2021-07-06 15:31] LABS: Appearance Urine Clear (Clear); Bacteria Urine Automated 2+ (Negative); Bilirubin Urine Negative (Negative); Blood Urine 2+ (Negative); Color Urine Yellow; Glucose Urine UA Negative (Negative); Ketones Urine Negative (Negative); Leukocyte Esterase Urine Trace (Negative); Nitrite Urine Positive (Negative); Protein Urine Negative (Negative); Specific Gravity Urine 1.012 (1.000-1.030); Urobilinogen Urine Negative (Negative); pH Urine 6.5 (4.5-7.5)
[2021-07-06] MEDS: WARFARIN SOD 2.5 MG TAB PO SCH (16:48)
[2021-07-06] MEDS ORDERED: PIPERACILL/TAZOBAC CONSULT ACTIVE PRN (18:05)
--- NOTE | 2021-07-06 18:05 | Hospitalist Progress Note ---
Date of Service July 06, 2021 Assessment & Plan (1) Acute on chronic diastolic heart failure: Plan: Presented with about 20 pounds weight gain in a few days with associated shortness of breath and increasing leg swelling Noted to have chest x-ray evidence of CHF Started with intravenous Lasix 40 mg twice daily and condition seems to be improving He has been feeling better still has wheezing and some shortness of breath We will continue IV Lasix for now (2) COPD exacerbation: Plan: History of COPD and may have mild exacerbation Continues to have wheezing which may be complicated by CHF We will continue with nebulized bronchodilator and inhalers Avoid any steroid at this time (3) Obesity hypoventilation syndrome: (4) Urinary tract infection associated with catheterization of urinary tract: Plan: Has indwelling Lloyd catheter with recurrent urinary tract infection White count is elevated without any evidence of pneumonia UA suggestive of infection and white count is increased to 19,000 today We will start Zosyn intravenously Await culture (5) DM type 2 (diabetes mellitus, type 2): Plan: We will continue with his usual insulin at home SSI (6) Anticoagulated on Coumadin: Plan: History of pulmonary embolism and DVT INR remains therapeutic Continue Coumadin (7) HTN (hypertension): Plan: Blood pressure is stable Continue current medications (8) Chronic pain disorder: Plan: Has been on Ultram Check the dose from discharge paper from [facility] He has been on 100 mg Ultram every 6 hourly as needed He cyclosporine has been discontinued because of severe interaction We will continue with his current dose of pain medications in the hospital BPH Continue current medicine DVT prophylaxis Has been on Coumadin CODE STATUS Full Admission and Anticipated Discharge Date Admission Date: July 05, 2021 Subjective 07/06/2021 The patient was seen and examined in telemetry unit Still complains to have wheezing and shortness of breath at rest Edema of the legs have improved Complains to have ongoing pain Review of Systems Review of Systems: All systems reviewed and are unremarkable except as noted below Musculoskeletal: Ongoing pain in the leg and back. Physical Exam Physical Exam: Sitting at the edge of the bed with minimal wheezing and shortness of breath Constitutional: well developed, well nourished, + ill appearing and + morbidly obese Eyes: PERRL, conjunctivae normal, anicteric sclerae ENMT: external ear and nose normal, oropharynx normal Neck: trachea midline, no thyromegaly Respiratory: + respiratory distress (Minimal distress at rest), + cough and + audible wheezes Auscultation: + diminished lung sounds, + crackles (Minimal crackles at the bases) and + wheezes (Mild wheezing all over-improves with cough) Cardiovascular: Rate/Rhythm: regular rate and regular rhythm; not tachycardic Heart Sounds: normal S1 and normal S2; no murmur Extremities: + edema (1+ edema bilaterally with chronic skin changes) Gastrointestinal (Abdomen): Inspection/Auscultation: + abdomen distended and normal bowel sounds Percussion/Palpation: abdomen soft; abdomen nontender Musculoskeletal: No acute arthritis involving any joint Neurologic: Alert, 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. No focal sensory or motor deficit appreciated Results & Data Results & Data ([facility]) Vital Signs (Past 12 Hours) Vital Signs Temp Pulse Pulse Resp BP Pulse Ox 07/06/21 15:00 36.8 C 81 18 128/67 94 07/06/21 13:42 88 18 94 07/06/21 11:00 36.6 C 70 74 18 142/72 H 07/06/21 07:36 85 18 98 07/06/21 07:00 36.6 C 80 18 147/81 H 96 Laboratory Results Short CBC 07/06/21 Range/Units 07:43 WBC 19.52 H (4.8-10.8) K/uL Hgb 13.3 L (14.0-18.0) g/dL Hct 42.1 (42-52) % Plt Count 305 (130-400) K/uL BMP 07/06/21 07:43 Sodium 137 Potassium 4.1 Chloride 102 Carbon Dioxide 32 BUN 16 D Creatinine 0.88 Glucose 139 H Calcium 9.5 Urine 07/06/21 Range/Units 15:00 Urine Color Yellow Urine Appearance Clear (Clear) Urine pH 6.5 (4.5-7.5) Ur Specific [place] 1.012 (1.000-1.030) Urine Protein Negative (Negative) Urine Glucose (UA) Negative (Negative) Medications Administered Current Inpatient Medications Acetaminophen (Acetaminophen 325 Mg Tab) 650 mg PO Q4H PRN PRN Reason: Pain or Fever Stop: 08/04/21 06:04 Albuterol (Albuterol Hfa 8 Gm Inhaler) 2 puffs INH Q4 PRN PRN Reason: Dyspnea Stop: 08/04/21 06:04 Albuterol (Albut/Ipratrop 3mg/0.5mg Neb 3 Ml Vial) 3 ml INH Q6H PRN PRN Reason: Shortness Of Breath Or Wheezing Stop: 08/04/21 06:04 Albuterol (Albut/Ipratrop 3mg/0.5mg Neb 3 Ml Vial) 3 ml NEB TIDR [facility] Stop: 08/04/21 08:59 Last Admin: 07/06/21 13:41 Dose: 3 ml Documented by: Aspirin (Aspirin 81 Mg Ectab) 81 mg PO QAM [facility] Stop: 08/04/21 08:59 Last Admin: 07/06/21 08:53 Dose: 81 mg Documented by: Atorvastatin Calcium (Atorvastatin 40 Mg Tab) 80 mg PO QDL [facility] Stop: 08/04/21 11:29 Last Admin: 07/06/21 08:51 Dose: 80 mg Documented by: Buprenorphine HCl (Buprenorphine Hcl 8 Mg Subl) 8 mg SL TID [facility] Stop: 08/04/21 08:59 Last Admin: 07/06/21 09:20 Dose: 8 mg Documented by: Cyclobenzaprine HCl (Cyclobenzaprine Hcl 10 Mg Tab) 10 mg PO BID PRN PRN Reason: Muscle Spasm Stop: 08/04/21 06:04 Last Admin: 07/06/21 09:02 Dose: 10 mg Documented by: Docusate Sodium (Docusate Sodium 100 Mg Cap) 100 mg PO BID [facility] Stop: 08/04/21 08:59 Last Admin: 07/06/21 08:50 Dose: 100 mg Documented by: Duloxetine HCl (Duloxetine Hcl 60 Mg Cap) 60 mg PO DAILY [facility] Stop: 08/04/21 08:59 Last Admin: 07/06/21 08:52 Dose: 60 mg Documented by: Ergocalciferol (Ergocalciferol 50,000 Units 1250 Mcg Cap) 50,000 units PO Fr@0 900 [facility] Stop: 08/10/21 08:59 Famotidine (Famotidine 20 Mg Tab) 20 mg PO DAILY [facility] Stop: 08/04/21 08:59 Last Admin: 07/06/21 08:52 Dose: 20 mg Documented by: Finasteride (Finasteride 5 Mg Tab) 5 mg PO QAM [facility] Stop: 08/04/21 08:59 Last Admin: 07/06/21 08:51 Dose: 5 mg Documented by: Fluticasone Propionate (Fluticasone Propionate Na Spr 16 Gm Btl) 2 sprays NA DAILY [facility] Stop: 08/04/21 08:59 Last Admin: 07/06/21 08:57 Dose: 2 sprays Documented by: Fluticasone/Vilanterol (Fluticasone/Vilanterol 100/25mcg 14 Puffs/Inhaler) 1 puffs INH DAILY [facility] Stop: 08/04/21 08:59 Last Admin: 07/06/21 08:57 Dose: 1 puffs Documented by: Folic Acid (Folic Acid 1 Mg Tab) 1 mg PO QAM [facility] Stop: 08/04/21 08:59 Last Admin: 07/06/21 08:56 Dose: 1 mg Documented by: Gabapentin (Gabapentin 800 Mg Tab) 800 mg PO TID [facility] Stop: 08/04/21 08:59 Last Admin: 07/06/21 14:06 Dose: 800 mg Documented by: Furosemide 40 mg/ Syringe 4 mls @ 4 mls/min IV BID17 [facility] Stop: 08/04/21 08:59 Last Admin: 07/06/21 17:29 Dose: 4 mls/min Documented by: Insulin Aspart (Insulin Aspart 100 Units/Ml 3 Ml Pen) 0 units SC ACHS [facility] Stop: 08/04/21 07:29 Last Admin: 07/06/21 17:31 Dose: 4 units Documented by: Insulin Glargine (Insulin Glargine Solostar 100 Units/Ml 3 Ml Pen) 50 units SC HS [facility] Stop: 08/04/21 20:59 Last Admin: 07/05/21 20:11 Dose: 50 units Documented by: Isosorbide Mononitrate (Isosorbide [place] Extended Rel 30 Mg Tabcr) 30 mg PO DAILY [facility] Stop: 08/04/21 08:59 Last Admin: 07/06/21 08:53 Dose: 30 mg Documented by: Lactobacillus Acidoph/Casei/[place] (Advanced Probiotic 1250 Mg Capsule) 2 cap PO TID [facility] Stop: 08/04/21 08:59 Last Admin: 07/06/21 14:33 Dose: 2 cap Documented by: Lorazepam (Lorazepam 0.5 Mg Tab) 0.5 mg PO Q8 PRN PRN Reason: Anxiety Stop: 08/04/21 06:04 Last Admin: 07/06/21 09:02 Dose: 0.5 mg Documented by: Methenamine Hippurate (Methenamine Hippurate 1 Gm Tab) 1 gm PO DAILY [facility] Stop: 08/04/21 08:59 Last Admin: 07/06/21 08:52 Dose: 1 gm Documented by: Metoprolol Succinate (Metoprolol Succ 25mg Ext Rel Tab) 75 mg PO BID [facility] Stop: 08/04/21 08:59 Last Admin: 07/06/21 08:50 Dose: 75 mg Documented by: Miscellaneous (Remove Nicoderm Patch) 1 ea N/A DAILY@0859 [facility] Stop: 08/04/21 08:58 Last Admin: 07/06/21 08:49 Dose: 1 ea Documented by: Nicotine (Nicotine 21 Mg/24 Hr Tdsy) 21 mg TD DAILY [facility] Stop: 08/04/21 08:59 Last Admin: 07/06/21 08:50 Dose: 21 mg Documented by: Nitroglycerin (Nitroglycerin Sl 0.4 Mg/Tab Tab) 0.4 mg SL UD PRN PRN Reason: Chest Pain Stop: 08/04/21 06:04 Nystatin (Nystatin Powder 15gm Btl) 1 appln EXT TID PRN PRN Reason: Skin Irritation Stop: 08/04/21 06:04 Ondansetron HCl (Ondansetron Inj 2 Mg/Ml 2 Ml Vial) 4 mg IV Q6H PRN PRN Reason: Nausea Stop: 08/04/21 06:04 Ondansetron HCl (Ondansetron 4 Mg Od Tab) 4 mg PO Q8 PRN PRN Reason: Nausea And Vomiting Stop: 08/04/21 07:09 Pantoprazole Sodium (Pantoprazole 40 Mg Tab) 40 mg PO DAILYBB [facility] Stop: 08/04/21 07:29 Last Admin: 07/06/21 05:38 Dose: 40 mg Documented by: Polyethylene Glycol (Polyethylene (Miralax) 17 Gm Pack) 17 gm PO DAILY PRN PRN Reason: Constipation Stop: 08/04/21 06:04 Polyethylene Glycol (Polyethylene (Miralax) 17 Gm Pack) 17 gm PO QAM [facility] Stop: 08/04/21 08:59 Last Admin: 07/06/21 08:58 Dose: 17 gm Documented by: Potassium Chloride (Potassium Chloride Crtab 20 Meq Tabcr) 20 meq PO BID [facility] Stop: 08/04/21 08:59 Last Admin: 07/06/21 08:55 Dose: 20 meq Documented by: Sennosides (Senna 8.6 Mg Tab) 8.6 mg PO DAILY PRN PRN Reason: Constipation Stop: 08/04/21 06:04 Last Admin: 07/06/21 08:52 Dose: 8.6 mg Documented by: Spironolactone (Spironolactone 25 Mg Tab) 25 mg PO QAM [facility] Stop: 08/04/21 08:59 Last Admin: 07/06/21 08:54 Dose: 25 mg Documented by: Tamsulosin HCl (Tamsulosin Hcl 0.4 Mg Cap) [facility] Stop: 08/04/21 08:59 Last Admin: 07/06/21 08:49 Dose: 0.4 mg Documented by: Tramadol HCl (Tramadol Hcl 50 Mg Tablet) 100 mg PO Q6 PRN PRN Reason: Pain Stop: 08/04/21 06:04 Last Admin: 07/06/21 16:58 Dose: 100 mg Documented by: Umeclidinium [place] (Umeclidinium [place] 62.5mcg/Blister 7 Puffs/Inhaler) 1 puffs INH [facility] Stop: 08/04/21 08:59 Last Admin: 07/06/21 08:58 Dose: 1 puffs Documented by: Warfarin Sodium (Warfarin Sod 2.5 Mg Tab) 2.5 mg PO DAILY@1600 [facility] Stop: 08/04/21 15:59 Last Admin: 07/06/21 16:48 Dose: 2.5 mg Documented by: (1) Urinary tract infection associated with catheterization of urinary tract Encounter type: initial encounter Indwelling urinary catheter type: indwelling urethral catheter Qualified Code(s): T83.511A - Infection and inflammatory reaction due to indwelling urethral catheter, initial encounter; N39.0 - Urinary tract infection, site not specified (2) HTN (hypertension) Hypertension type: essential hypertension Qualified Code(s): I10 - Essential (primary) hypertension
[2021-07-06] MEDS ORDERED: PIPERACILLIN/TAZOBACTAM 4.5 GM in DEXTROSE 5% 100 ML IV ONE (18:30)
[2021-07-06] MEDS: INSULIN GLARGINE SOLOSTAR 100 UNITS/ML 3 ML PEN SC SCH (21:47)
[2021-07-07] MEDS: traMADol HCL 50 MG TABLET PO PRN ×3 (06:16→18:29)
[2021-07-07] MEDS: PANTOprazole 40 MG TAB PO SCH (06:16)
[2021-07-07 06:22] LABS: Basophils # (auto) 0.06 K/uL (0-0.2); Basophils % (auto) 0.5 %; Eosinophils # (auto) 0.25 K/uL (0-0.5); Eosinophils % (auto) 1.9 %; Hemoglobin 12.1 g/dL (14.0-18.0); Immature Granulocytes # (auto) 0.08 K/uL (0.00-0.02); Immature Granulocytes % (auto) 0.6 %; Lymphocytes # (auto) 3.98 K/uL (1.2-3.4); Lymphocytes % (auto) 29.9 %; Mean Corpuscular Hemoglobin 26.1 pg (25-34); Mean Corpuscular Volume 84.1 fL (80-100); Mean Platelet Volume 9.7 fL (7.4-10.4); Monocytes # (auto) 1.01 K/uL (0.11-0.59); Monocytes % (auto) 7.6 %; Neutrophils # (auto) 7.91 K/uL (1.4-6.5); Neutrophils % (auto) 59.5 %; Platelet Count 280 K/uL (130-400); RDW Coefficient of Variation 17.7 % (11.5-14.5); Red Blood Count 4.64 M/uL (4.7-6.1); White Blood Count 13.29 K/uL (4.8-10.8)
[2021-07-07 06:31] LABS: INR 1.4 (0.9-1.1); Prothrombin Time 13.8 Seconds (9.0-12.0)
[2021-07-07 06:54] LABS: Calcium 8.7 mg/dl (8.5-10.1); Creatinine Clr Calc Pharmacy 154.4 ml/min; Est GFR (African American) 97.7 ml/min; Est GFR (Non-African American) 84.3 ml/min; Potassium 4.4 mmol/L (3.5-5.1)
[2021-07-07] MEDS: ALBUT/IPRATROP 3MG/0.5MG NEB 3 ML VIAL NEB SCH ×3 (07:21→17:57)
[2021-07-07] MEDS: PIPERACILLIN/TAZOBACTAM 4.5 GM in DEXTROSE 5% 100 ML IV SCH ×3 (08:41→17:34)
[2021-07-07] MEDS: GABAPENTIN 800 MG TAB PO SCH ×3 (08:43→21:45)
[2021-07-07] MEDS: INSULIN ASPART 100 UNITS/ML 3 ML PEN SC SCH ×4 (08:43→21:41)
[2021-07-07] MEDS: FOLIC ACID 1 MG TAB PO SCH (08:43)
[2021-07-07] MEDS: DULoxetine HCL 60 MG CAP PO SCH (08:44)
[2021-07-07] MEDS: ISOSORBIDE MONO EXTENDED REL 30 MG TABCR PO SCH (08:44)
[2021-07-07] MEDS: FUROSEMIDE 40 MG in SYRINGE 0 ML IV SCH ×2 (08:44→17:35)
[2021-07-07] MEDS: FAMOTIDINE 20 MG TAB PO SCH (08:44)
[2021-07-07] MEDS: FINASTERIDE 5 MG TAB PO SCH (08:44)
[2021-07-07] MEDS: METOPROLOL SUCC 25MG EXT REL TAB PO SCH ×2 (08:45→21:47)
[2021-07-07] MEDS: ASPIRIN 81 MG ECTAB PO SCH (08:45)
[2021-07-07] MEDS: NICOTINE 21 MG/24 HR TDSY TD SCH (08:45)
[2021-07-07] MEDS: METHENAMINE HIPPURATE 1 GM TAB PO SCH (08:45)
[2021-07-07] MEDS: SPIRONOLACTONE 25 MG TAB PO SCH (08:46)
[2021-07-07] MEDS: ADVANCED PROBIOTIC 1250 MG CAPSULE PO SCH ×3 (08:46→21:46)
[2021-07-07] MEDS: FLUTICASONE PROPIONATE NA SPR 16 GM BTL SCH (08:46)
[2021-07-07] MEDS: TAMSULOSIN HCL 0.4 MG CAP PO SCH (08:46)
[2021-07-07] MEDS: FLUTICASONE/VILANTEROL 100/25MCG 14 PUFFS/INHALER INH SCH (08:47)
[2021-07-07] MEDS: UMECLIDINIUM BROMIDE 62.5MCG/BLISTER 7 PUFFS/INHALER INH SCH (08:47)
[2021-07-07] MEDS: POLYETHYLENE (MIRALAX) 17 GM PACK PO SCH (08:54)
[2021-07-07] MEDS: DOCUSATE SODIUM 100 MG CAP PO SCH ×2 (08:54→21:38)
[2021-07-07] MEDS: LORazepam 0.5 MG TAB PO PRN ×2 (08:54→21:38)
[2021-07-07] MEDS: buprenorphine HCL 8 MG SUBL SL SCH ×3 (08:54→21:38)
[2021-07-07] MEDS: POTASSIUM CHLORIDE CRTAB 20 MEQ TABCR PO SCH ×2 (08:55→22:01)
[2021-07-07] MEDS: ATORVASTATIN 40 MG TAB PO SCH (12:05)
[2021-07-07] MEDS ORDERED: WARFARIN SOD 5 MG TAB PO SCH (16:00)
--- NOTE | 2021-07-07 17:59 | Hospitalist Progress Note ---
Date of Service July 07, 2021 Assessment & Plan (1) Acute on chronic diastolic heart failure: Plan: Presented with about 20 pounds weight gain in a few days with associated shortness of breath and increasing leg swelling Noted to have chest x-ray evidence of CHF Continue IV Lasix Monitor I's and O's, daily weight (2) COPD exacerbation: Plan: Chronic respiratory failure with hypoxia--uses 4 L at bedtime and intermittently H/O COPD and may have mild exacerbation Continue with nebulized bronchodilator and inhalers (3) Obesity hypoventilation syndrome: Plan: BMI 60 (4) Urinary tract infection associated with catheterization of urinary tract: Plan: H/O Indwelling Lloyd catheter with recurrent urinary tract infection UTI:POA Likely secondary to chronic Lloyd catheter Urine culture growing gram-negative bacilli Change Lloyd catheter Continue Zosyn for now (5) DM type 2 (diabetes mellitus, type 2): Plan: We will continue with his usual insulin at home SSI (6) Anticoagulated on Coumadin: Plan: H/O PE and DVT INR Subtherapeutic Continue Coumadin Monitor INR:1.4 (7) HTN (hypertension): Plan: Blood pressure is stable Continue current medications (8) Chronic pain disorder: Plan: Has been on Ultram He has been on 100 mg Ultram every 6 hourly as needed He cyclobenzaprine has been discontinued because of severe interaction Continue current meds BPH Continue current medicine DVT Px: Coumadin CODE STATUS Full Code Admission and Anticipated Discharge Date Admission Date: July 05, 2021 Subjective Patient is seen and examined bedside States having leg edema Also reports chronic pain Otherwise offers no new complaints Denies any dyspnea, dizziness, nausea, abdominal pain INR subtherapeutic Review of Systems Review of Systems: All systems reviewed & are unremarkable except as noted in Subjective Physical Exam Physical Exam: Physical Exam: Vitals signs as noted above General Appearance:Morbidly Obese, no apparent distress Head: normocephalic, Atraumatic Eyes: normal inspection, EOMI Neck: supple, Trachea midline Respiratory/Chest: Coarse breath sounds, CTA Cardiovascular: S1, S2, No murmur Abdomen/GI:Soft, Non tender, Bowel sounds present Extremities/Musculoskeletal:normal inspection, B/L LE edema Neurologic/Psych:AAOX3, grossly no focal neurological deficits Skin: normal color, warm Results & Data Results & Data ([facility]) Vital Signs (Past 12 Hours) Vital Signs Temp Pulse Pulse Resp BP Pulse Ox 07/07/21 15:19 36.4 C L 70 20 133/76 98 07/07/21 12:57 82 17 92 07/07/21 12:43 70 07/07/21 11:54 36.5 C 67 20 132/77 95 07/07/21 08:04 36.8 C 72 17 121/70 97 07/07/21 07:21 67 18 98 Laboratory Results Short CBC 07/07/21 Range/Units 06:02 WBC 13.29 H (4.8-10.8) K/uL Hgb 12.1 L (14.0-18.0) g/dL Hct 39.0 L (42-52) % Plt Count 280 (130-400) K/uL BMP 07/07/21 06:02 Sodium 137 Potassium 4.4 Chloride 102 Carbon Dioxide 33 H BUN 22 H Creatinine 1.03 Glucose 106 H Calcium 8.7 (1) Urinary tract infection associated with catheterization of urinary tract Encounter type: initial encounter Indwelling urinary catheter type: indwelling urethral catheter Qualified Code(s): T83.511A - Infection and inflammatory reaction due to indwelling urethral catheter, initial encounter; N39.0 - Urinary tract infection, site not specified (2) HTN (hypertension) Hypertension type: essential hypertension Qualified Code(s): I10 - Essential (primary) hypertension
[2021-07-07] MEDS: MELATONIN 3 MG TAB PO PRN ×2 (21:38)
[2021-07-07] MEDS: INSULIN GLARGINE SOLOSTAR 100 UNITS/ML 3 ML PEN SC SCH (21:43)
[2021-07-08] MEDS: PIPERACILLIN/TAZOBACTAM 4.5 GM in DEXTROSE 5% 100 ML IV SCH ×3 (00:35→16:35)
[2021-07-08] MEDS: traMADol HCL 50 MG TABLET PO PRN ×4 (00:36→20:39)
[2021-07-08] MEDS: PANTOprazole 40 MG TAB PO SCH (06:40)
[2021-07-08] MEDS: ALBUT/IPRATROP 3MG/0.5MG NEB 3 ML VIAL NEB SCH ×3 (07:05→18:10)
[2021-07-08] MEDS: INSULIN ASPART 100 UNITS/ML 3 ML PEN SC SCH ×4 (08:29→21:48)
[2021-07-08] MEDS: NICOTINE 21 MG/24 HR TDSY TD SCH (08:38)
[2021-07-08] MEDS: LORazepam 0.5 MG TAB PO PRN ×2 (08:41→21:43)
[2021-07-08] MEDS: METHENAMINE HIPPURATE 1 GM TAB PO SCH (08:41)
[2021-07-08] MEDS: buprenorphine HCL 8 MG SUBL SL SCH ×3 (08:41→21:41)
[2021-07-08] MEDS: FINASTERIDE 5 MG TAB PO SCH (08:42)
[2021-07-08] MEDS: TAMSULOSIN HCL 0.4 MG CAP PO SCH (08:42)
[2021-07-08] MEDS: DULoxetine HCL 60 MG CAP PO SCH (08:43)
[2021-07-08] MEDS: ISOSORBIDE MONO EXTENDED REL 30 MG TABCR PO SCH (08:43)
[2021-07-08] MEDS: ADVANCED PROBIOTIC 1250 MG CAPSULE PO SCH ×3 (08:44→21:43)
[2021-07-08] MEDS: FOLIC ACID 1 MG TAB PO SCH (08:44)
[2021-07-08] MEDS: FAMOTIDINE 20 MG TAB PO SCH (08:44)
[2021-07-08] MEDS: GABAPENTIN 800 MG TAB PO SCH ×3 (08:44→21:42)
[2021-07-08] MEDS: ASPIRIN 81 MG ECTAB PO SCH (08:45)
[2021-07-08] MEDS: METOPROLOL SUCC 25MG EXT REL TAB PO SCH ×2 (08:45→22:02)
[2021-07-08] MEDS: FUROSEMIDE 40 MG in SYRINGE 0 ML IV SCH ×2 (08:46→17:37)
[2021-07-08] MEDS: SPIRONOLACTONE 25 MG TAB PO SCH (08:49)
[2021-07-08] MEDS: POLYETHYLENE (MIRALAX) 17 GM PACK PO SCH (08:50)
[2021-07-08] MEDS: UMECLIDINIUM BROMIDE 62.5MCG/BLISTER 7 PUFFS/INHALER INH SCH (08:51)
[2021-07-08] MEDS: FLUTICASONE/VILANTEROL 100/25MCG 14 PUFFS/INHALER INH SCH (08:51)
[2021-07-08] MEDS: FLUTICASONE PROPIONATE NA SPR 16 GM BTL SCH (08:52)
[2021-07-08] MEDS: POTASSIUM CHLORIDE CRTAB 20 MEQ TABCR PO SCH ×2 (09:00→22:02)
[2021-07-08] MEDS: DOCUSATE SODIUM 100 MG CAP PO SCH ×2 (09:00→21:41)
[2021-07-08 09:02] LABS: Hematocrit (blood only) 40.9 % (42-52); Hemoglobin 12.7 g/dL (14.0-18.0); Mean Corpuscular Hemoglobin 26.3 pg (25-34); Mean Corpuscular Hgb Conc 31.1 g/dL (32-36); Mean Corpuscular Volume 84.7 fL (80-100); Mean Platelet Volume 9.9 fL (7.4-10.4); Platelet Count 284 K/uL (130-400); RDW Coefficient of Variation 17.4 % (11.5-14.5); RDW Standard Deviation 54.1 fL (36.4-46.3); Red Blood Count 4.83 M/uL (4.7-6.1); White Blood Count 13.62 K/uL (4.8-10.8)
[2021-07-08 09:24] LABS: INR 1.3 (0.9-1.1); Prothrombin Time 12.9 Seconds (9.0-12.0)
[2021-07-08 09:35] LABS: Calcium 9.2 mg/dl (8.5-10.1); Creatinine Clr Calc Pharmacy 136.5 ml/min; Est GFR (African American) 84.6 ml/min
[2021-07-08] MEDS: ATORVASTATIN 40 MG TAB PO SCH (11:42)
[2021-07-08] MEDS ORDERED: WARFARIN SOD 7.5 MG TAB PO SCH (16:00)
[2021-07-08] MEDS ORDERED: guaiFENesin/DEXTROM SYRUP 200MG/20MG 10ML UDC PO PRN (16:41)
--- NOTE | 2021-07-08 17:51 | Hospitalist Progress Note ---
Date of Service July 08, 2021 Assessment & Plan (1) Acute on chronic diastolic heart failure: Plan: Presented with about 20 pounds weight gain in a few days with associated shortness of breath and increasing leg swelling Noted to have chest x-ray evidence of CHF Continue IV Lasix Monitor I's and O's, daily weight Diuresing well Check chest x-ray tomorrow (2) COPD exacerbation: Plan: Chronic respiratory failure with hypoxia--uses 4 L at bedtime and intermittently H/O COPD and may have mild exacerbation Continue with nebulized bronchodilator and inhalers (3) Obesity hypoventilation syndrome: Plan: BMI 60 (4) Urinary tract infection associated with catheterization of urinary tract: Plan: H/O Indwelling Lloyd catheter with recurrent urinary tract infection UTI:POA Likely secondary to chronic Lloyd catheter Urine culture growing gram-negative bacilli Change Lloyd catheter Continue Zosyn for now (5) DM type 2 (diabetes mellitus, type 2): Plan: We will continue with his usual insulin at home SSI (6) Anticoagulated on Coumadin: Plan: H/O PE and DVT INR Subtherapeutic Continue Coumadin Monitor INR:1.3 Increase Coumadin to 7.5 mg today (7) HTN (hypertension): Plan: Blood pressure is stable Continue current medications (8) Chronic pain disorder: Plan: Has been on Ultram He has been on 100 mg Ultram every 6 hourly as needed He cyclobenzaprine has been discontinued because of severe interaction Continue current meds BPH Continue current medicine DVT Px: Coumadin CODE STATUS Full Code Admission and Anticipated Discharge Date Admission Date: July 05, 2021 Subjective Patient is seen and examined bedside leg edema better today Reports minimal intermittent vough Denies any chest pain, dyspnea, dizziness, nausea, abdominal pain INR subtherapeutic Review of Systems 2 Review of Systems: All systems reviewed & are unremarkable except as noted in Subjective Physical Exam Physical Exam: Physical Exam: Vitals signs as noted above General Appearance:Morbidly Obese, no apparent distress Head: normocephalic, Atraumatic Eyes: normal inspection, EOMI Neck: supple, Trachea midline Respiratory/Chest: Coarse breath sounds, CTA Cardiovascular: S1, S2, No murmur Abdomen/GI:Soft, Non tender, Bowel sounds present Extremities/Musculoskeletal:normal inspection, B/L LE edema Neurologic/Psych:AAOX3, grossly no focal neurological deficits Skin: normal color, warm Results & Data Results & Data ([facility]) Vital Signs (Past 12 Hours) Vital Signs Temp Pulse Pulse Resp BP Pulse Ox 07/08/21 16:51 37.0 C 85 16 113/71 98 07/08/21 13:39 71 16 97 07/08/21 11:51 36.5 C 67 16 117/64 91 07/08/21 08:01 36.5 C 65 16 124/79 98 07/08/21 08:00 60 07/08/21 07:06 67 18 96 Laboratory Results Short CBC 07/08/21 Range/Units 08:28 WBC 13.62 H (4.8-10.8) K/uL Hgb 12.7 L (14.0-18.0) g/dL Hct 40.9 L (42-52) % Plt Count 284 (130-400) K/uL BMP 07/08/21 08:28 Sodium 135 L Potassium 4.0 Chloride 100 Carbon Dioxide 33 H BUN 24 H Creatinine 1.16 Glucose 148 H Calcium 9.2 (1) Urinary tract infection associated with catheterization of urinary tract Encounter type: initial encounter Indwelling urinary catheter type: indwelling urethral catheter Qualified Code(s): T83.511A - Infection and inflammatory reaction due to indwelling urethral catheter, initial encounter; N39.0 - Urinary tract infection, site not specified (2) HTN (hypertension) Hypertension type: essential hypertension Qualified Code(s): I10 - Essential (primary) hypertension
[2021-07-08] MEDS: MELATONIN 3 MG TAB PO PRN (21:43)
[2021-07-08] MEDS: INSULIN GLARGINE SOLOSTAR 100 UNITS/ML 3 ML PEN SC SCH (21:48)
[2021-07-09] MEDS: PIPERACILLIN/TAZOBACTAM 4.5 GM in DEXTROSE 5% 100 ML IV SCH ×4 (00:11→23:54)
[2021-07-09] MEDS: traMADol HCL 50 MG TABLET PO PRN ×4 (03:21→21:26)
[2021-07-09] MEDS: PANTOprazole 40 MG TAB PO SCH (05:53)
[2021-07-09 06:03] LABS: Hematocrit (blood only) 40.6 % (42-52); Hemoglobin 12.5 g/dL (14.0-18.0); Mean Corpuscular Hemoglobin 26.1 pg (25-34); Mean Corpuscular Hgb Conc 30.8 g/dL (32-36); Mean Corpuscular Volume 84.8 fL (80-100); Mean Platelet Volume 9.7 fL (7.4-10.4); Platelet Count 281 K/uL (130-400); RDW Coefficient of Variation 17.3 % (11.5-14.5); RDW Standard Deviation 53.7 fL (36.4-46.3); Red Blood Count 4.79 M/uL (4.7-6.1); White Blood Count 12.34 K/uL (4.8-10.8)
[2021-07-09 06:17] LABS: INR 1.2 (0.9-1.1); Prothrombin Time 11.7 Seconds (9.0-12.0)
[2021-07-09 06:40] LABS: BUN Creatinine Ratio 17.9 (10-20); Creatinine Clr Calc Pharmacy 119.2 ml/min; Est GFR (African American) 71.7 ml/min; Est GFR (Non-African American) 61.9 ml/min; Potassium 3.8 mmol/L (3.5-5.1)
[2021-07-09] MEDS: ALBUT/IPRATROP 3MG/0.5MG NEB 3 ML VIAL NEB SCH (07:14)
[2021-07-09] MEDS: INSULIN ASPART 100 UNITS/ML 3 ML PEN SC SCH ×4 (08:31→20:28)
[2021-07-09] MEDS: FUROSEMIDE 40 MG in SYRINGE 0 ML IV SCH ×2 (08:33→19:05)
[2021-07-09] MEDS: LORazepam 0.5 MG TAB PO PRN ×2 (08:34→20:21)
[2021-07-09] MEDS: buprenorphine HCL 8 MG SUBL SL SCH ×3 (08:34→20:06)
[2021-07-09] MEDS: DOCUSATE SODIUM 100 MG CAP PO SCH ×2 (08:35→20:20)
[2021-07-09] MEDS: POTASSIUM CHLORIDE CRTAB 20 MEQ TABCR PO SCH ×2 (08:35→20:07)
[2021-07-09] MEDS: POLYETHYLENE (MIRALAX) 17 GM PACK PO SCH (08:35)
[2021-07-09] MEDS: ISOSORBIDE MONO EXTENDED REL 30 MG TABCR PO SCH (08:35)
[2021-07-09] MEDS: METHENAMINE HIPPURATE 1 GM TAB PO SCH (08:35)
[2021-07-09] MEDS: GABAPENTIN 800 MG TAB PO SCH ×3 (08:35→20:07)
[2021-07-09] MEDS: METOPROLOL SUCC 25MG EXT REL TAB PO SCH ×2 (08:35→20:10)
[2021-07-09] MEDS: FINASTERIDE 5 MG TAB PO SCH (08:36)
[2021-07-09] MEDS: DULoxetine HCL 60 MG CAP PO SCH (08:36)
[2021-07-09] MEDS: TAMSULOSIN HCL 0.4 MG CAP PO SCH (08:37)
[2021-07-09] MEDS: ASPIRIN 81 MG ECTAB PO SCH (08:37)
[2021-07-09] MEDS: FOLIC ACID 1 MG TAB PO SCH (08:37)
[2021-07-09] MEDS: ADVANCED PROBIOTIC 1250 MG CAPSULE PO SCH ×3 (08:37→20:12)
[2021-07-09] MEDS: NICOTINE 21 MG/24 HR TDSY TD SCH (08:38)
[2021-07-09] MEDS: FAMOTIDINE 20 MG TAB PO SCH (08:38)
[2021-07-09] MEDS: SPIRONOLACTONE 25 MG TAB PO SCH (08:38)
[2021-07-09] MEDS: FLUTICASONE/VILANTEROL 100/25MCG 14 PUFFS/INHALER INH SCH (08:42)
[2021-07-09] MEDS: UMECLIDINIUM BROMIDE 62.5MCG/BLISTER 7 PUFFS/INHALER INH SCH (08:42)
[2021-07-09] MEDS: FLUTICASONE PROPIONATE NA SPR 16 GM BTL SCH (08:43)
--- NOTE | 2021-07-09 09:08 | XRay Report ---
XR chest 1V portable CLINICAL HISTORY: chf TECHNIQUE: Single frontal radiograph of the chest was obtained. Comparison: Comparison is made to chest one view 07/05/2021 FINDINGS: No lines and tubes are seen. Cardiomegaly is noted. The lungs are clear. No evidence of pleural effus ion or pneumothorax. IMPRESSION: Cardiomegaly without evidence of pulmonary edema. ACT 112: Negative or not required by law. Electronically signed by: Armand Tobar M.D. 07/09/2021 9:06 AM
[2021-07-09] MEDS: ATORVASTATIN 40 MG TAB PO SCH (12:03)
[2021-07-09] MEDS: WARFARIN SOD 10 MG TAB PO SCH (16:56)
--- NOTE | 2021-07-09 17:50 | Hospitalist Progress Note ---
Date of Service July 09, 2021 Assessment & Plan (1) Acute on chronic diastolic heart failure: Plan: Presented with about 20 pounds weight gain in a few days with associated shortness of breath and increasing leg swelling Noted to have chest x-ray evidence of CHF Continue IV Lasix Monitor I's and O's, daily weight Diuresing well Repeat CXR today Cardiomegaly without evidence of pulmonary edema. Plan to transition to PO diuretics as able (2) COPD exacerbation: Plan: Chronic respiratory failure with hypoxia--uses 4 L at bedtime and intermittently H/O COPD and may have mild exacerbation Continue with nebulized bronchodilator and inhalers (3) Obesity hypoventilation syndrome: Plan: BMI 60 (4) Urinary tract infection associated with catheterization of urinary tract: Plan: H/O Indwelling Lloyd catheter with recurrent urinary tract infection UTI:POA Likely secondary to chronic Lloyd catheter Urine culture growing gram-negative bacilli, gram positive cocci Changed Lloyd catheter Continue Zosyn for now (5) DM type 2 (diabetes mellitus, type 2): Plan: We will continue with his usual insulin at home SSI (6) Anticoagulated on Coumadin: Plan: H/O PE and DVT INR Subtherapeutic Continue Coumadin Monitor INR:1.2 Increase Coumadin to 10 mg today (7) HTN (hypertension): Plan: Blood pressure is stable Continue current medications (8) Chronic pain disorder: Plan: Has been on Ultram He has been on 100 mg Ultram every 6 hourly as needed He cyclobenzaprine has been discontinued because of severe interaction Continue current meds BPH Continue current medicine DVT Px: Coumadin CODE STATUS Full Code Admission and Anticipated Discharge Date Admission Date: July 05, 2021 Subjective Patient is seen and examined bedside No significant change from yesterday Leg edema continues to improve Diuresing well Denies any chest pain, dyspnea, dizziness, nausea, abdominal pain INR still subtherapeutic Review of Systems Review of Systems: All systems reviewed & are unremarkable except as noted in Subjective Physical Exam Physical Exam: Physical Exam: Vitals signs as noted above General Appearance:Morbidly Obese, no apparent distress Head: normocephalic, Atraumatic Eyes: normal inspection, EOMI Neck: supple, Trachea midline Respiratory/Chest: Coarse breath sounds, CTA Cardiovascular: S1, S2, No murmur Abdomen/GI:Soft, Non tender, Bowel sounds present Extremities/Musculoskeletal:normal inspection, B/L LE edema Neurologic/Psych:AAOX3, grossly no focal neurological deficits Skin: normal color, warm Results & Data Results & Data ([facility]) Vital Signs (Past 12 Hours) Vital Signs Temp Pulse Pulse Resp BP Pulse Ox 07/09/21 16:00 64 07/09/21 15:00 36.8 C 77 22 121/76 96 07/09/21 11:00 36.5 C 72 20 117/72 96 07/09/21 08:00 61 07/09/21 07:15 63 18 97 07/09/21 07:00 37.1 C 69 18 118/63 95 Laboratory Results Short CBC 07/09/21 Range/Units 05:24 WBC 12.34 H (4.8-10.8) K/uL Hgb 12.5 L (14.0-18.0) g/dL Hct 40.6 L (42-52) % Plt Count 281 (130-400) K/uL BMP 07/09/21 05:24 Sodium 136 Potassium 3.8 Chloride 100 Carbon Dioxide 35 H BUN 24 H Creatinine 1.33 Glucose 119 H Calcium 9.0 (1) Urinary tract infection associated with catheterization of urinary tract Encounter type: initial encounter Indwelling urinary catheter type: indwelling urethral catheter Qualified Code(s): T83.511A - Infection and inflammatory reaction due to indwelling urethral catheter, initial encounter; N39.0 - Urinary tract infection, site not specified (2) HTN (hypertension) Hypertension type: essential hypertension Qualified Code(s): I10 - Essential (primary) hypertension
[2021-07-09] MEDS: MELATONIN 3 MG TAB PO PRN (20:20)
[2021-07-09] MEDS: INSULIN GLARGINE SOLOSTAR 100 UNITS/ML 3 ML PEN SC SCH (20:27)
[2021-07-10] MEDS: traMADol HCL 50 MG TABLET PO PRN ×4 (03:20→21:37)
[2021-07-10] MEDS: PANTOprazole 40 MG TAB PO SCH (05:47)
[2021-07-10 08:03] LABS: INR 1.2 (0.9-1.1); Prothrombin Time 11.8 Seconds (9.0-12.0)
[2021-07-10] MEDS: METHENAMINE HIPPURATE 1 GM TAB PO SCH (08:39)
[2021-07-10] MEDS: buprenorphine HCL 8 MG SUBL SL SCH ×3 (08:39→20:01)
[2021-07-10] MEDS: DULoxetine HCL 60 MG CAP PO SCH (08:39)
[2021-07-10] MEDS: POTASSIUM CHLORIDE CRTAB 20 MEQ TABCR PO SCH ×2 (08:39→20:12)
[2021-07-10] MEDS: LORazepam 0.5 MG TAB PO PRN ×2 (08:39→20:00)
[2021-07-10] MEDS: ADVANCED PROBIOTIC 1250 MG CAPSULE PO SCH ×3 (08:39→20:03)
[2021-07-10] MEDS: FINASTERIDE 5 MG TAB PO SCH (08:39)
[2021-07-10] MEDS: SPIRONOLACTONE 25 MG TAB PO SCH (08:39)
[2021-07-10] MEDS: DOCUSATE SODIUM 100 MG CAP PO SCH ×2 (08:39→20:12)
[2021-07-10] MEDS: METOPROLOL SUCC 25MG EXT REL TAB PO SCH ×2 (08:39→20:04)
[2021-07-10] MEDS: TAMSULOSIN HCL 0.4 MG CAP PO SCH (08:39)
[2021-07-10] MEDS: POLYETHYLENE (MIRALAX) 17 GM PACK PO SCH (08:39)
[2021-07-10 08:40] LABS: BUN Creatinine Ratio 20.6 (10-20); Calcium 8.9 mg/dl (8.5-10.1); Creatinine Clr Calc Pharmacy 148.1 ml/min; Est GFR (African American) 93.3 ml/min; Est GFR (Non-African American) 80.5 ml/min
[2021-07-10] MEDS: NICOTINE 21 MG/24 HR TDSY TD SCH (08:40)
[2021-07-10] MEDS: ISOSORBIDE MONO EXTENDED REL 30 MG TABCR PO SCH (08:40)
[2021-07-10] MEDS: GABAPENTIN 800 MG TAB PO SCH ×3 (08:40→20:02)
[2021-07-10] MEDS: FUROSEMIDE 40 MG in SYRINGE 0 ML IV SCH ×2 (08:40→16:30)
[2021-07-10] MEDS: FOLIC ACID 1 MG TAB PO SCH (08:41)
[2021-07-10] MEDS: FLUTICASONE PROPIONATE NA SPR 16 GM BTL SCH (08:41)
[2021-07-10] MEDS: FAMOTIDINE 20 MG TAB PO SCH (08:41)
[2021-07-10] MEDS: FLUTICASONE/VILANTEROL 100/25MCG 14 PUFFS/INHALER INH SCH (08:42)
[2021-07-10] MEDS: ASPIRIN 81 MG ECTAB PO SCH (08:42)
[2021-07-10] MEDS: UMECLIDINIUM BROMIDE 62.5MCG/BLISTER 7 PUFFS/INHALER INH SCH (08:42)
[2021-07-10] MEDS: INSULIN ASPART 100 UNITS/ML 3 ML PEN SC SCH ×4 (08:47→20:08)
[2021-07-10] MEDS: PIPERACILLIN/TAZOBACTAM 4.5 GM in DEXTROSE 5% 100 ML IV SCH (08:51)
[2021-07-10 09:19] LABS: Potassium 4.1 mmol/L (3.5-5.1)
[2021-07-10] MEDS: ENOXAPARIN INJ 40 MG/0.4 ML SYR SQ SCH ×2 (11:25→20:05)
[2021-07-10] MEDS: ATORVASTATIN 40 MG TAB PO SCH (11:26)
[2021-07-10] MEDS: PHENAZOPYRIDINE HCL 100 MG TAB PO PRN ×2 (14:09→23:01)
[2021-07-10] MEDS: levoFLOXacin 750 MG TAB PO SCH (16:28)
[2021-07-10] MEDS: WARFARIN SOD 10 MG TAB PO SCH (16:29)
[2021-07-10] MEDS: AMPICILLIN 2,000 MG in SODIUM CHLOR 0.9% AD-VAN 100 ML IV SCH ×2 (17:13→23:38)
--- NOTE | 2021-07-10 18:48 | Hospitalist Progress Note ---
Date of Service July 10, 2021 Assessment & Plan (1) Acute on chronic diastolic heart failure: Plan: Presented with about 20 pounds weight gain in a few days with associated shortness of breath and increasing leg swelling Noted to have chest x-ray evidence of CHF Repeat CXR Cardiomegaly without evidence of pulmonary edema. Monitor I's and O's, daily weight Diuresing well Continue IV Lasix for now Needs follow-up with cardiology upon discharge (2) COPD exacerbation: Plan: Chronic respiratory failure with hypoxia--uses 4 L at bedtime and intermittently H/O COPD and may have mild exacerbation Continue with nebulized bronchodilator and inhalers (3) Obesity hypoventilation syndrome: Plan: BMI 60 (4) Urinary tract infection associated with catheterization of urinary tract: Plan: H/O Indwelling Lloyd catheter with recurrent urinary tract infection UTI:POA Likely secondary to chronic Lloyd catheter Urine culture growing gram-negative bacilli, Enterococcus faecalis Changed Lloyd catheter Continue Zosyn >> Transition to Levaquin, ampicillin on 07/10 Follow up final culture (5) DM type 2 (diabetes mellitus, type 2): Plan: We will continue with his usual insulin at home SSI (6) Anticoagulated on Coumadin: Plan: H/O PE and DVT INR Subtherapeutic Continue Coumadin Monitor INR:1.2 Continue Coumadin to 10 mg today Lovenox SQ until INR is therapeutic (7) HTN (hypertension): Plan: Blood pressure is stable Continue current medications (8) Chronic pain disorder: Plan: Has been on Ultram He has been on 100 mg Ultram every 6 hourly as needed He cyclobenzaprine has been discontinued because of severe interaction Continue current meds BPH Continue current medicine DVT Px: Coumadin Lovenox SQ till INR therapeutic CODE STATUS Full Code Admission and Anticipated Discharge Date Admission Date: July 05, 2021 Subjective Patient is seen and examined bedside States having discomfort at catheter site Otherwise no new complaints Leg edema improving Denies any chest pain, dyspnea, dizziness, nausea, abdominal pain Review of Systems Review of Systems: All systems reviewed & are unremarkable except as noted in Subjective Physical Exam Physical Exam: Physical Exam: Vitals signs as noted above General Appearance:Morbidly Obese, no apparent distress Head: normocephalic, Atraumatic Eyes: normal inspection, EOMI Neck: supple, Trachea midline Respiratory/Chest: Decreased breath sounds, CTA Cardiovascular: S1, S2, No murmur Abdomen/GI:Soft, Non tender, Bowel sounds present Extremities/Musculoskeletal:normal inspection, B/L LE edema Neurologic/Psych:AAOX3, grossly no focal neurological deficits Skin: normal color, warm Results & Data Results & Data ([facility]) Vital Signs (Past 12 Hours) Vital Signs Temp Pulse Pulse Resp BP Pulse Ox 07/10/21 16:51 36.7 C 64 17 114/57 L 96 07/10/21 12:18 63 07/10/21 12:04 36.7 C 64 21 113/65 91 07/10/21 08:03 36.5 C 64 20 101/60 96 Laboratory Results BMP 07/10/21 07:21 Sodium 137 Potassium 4.1 Chloride 104 Carbon Dioxide 30 BUN 22 H Creatinine 1.07 Glucose 147 H Calcium 8.9 (1) Urinary tract infection associated with catheterization of urinary tract Encounter type: initial encounter Indwelling urinary catheter type: indwelling urethral catheter Qualified Code(s): T83.511A - Infection and inflammatory reaction due to indwelling urethral catheter, initial encounter; N39.0 - Urinary tract infection, site not specified (2) HTN (hypertension) Hypertension type: essential hypertension Qualified Code(s): I10 - Essential (primary) hypertension
[2021-07-10] MEDS: MELATONIN 3 MG TAB PO PRN (20:01)
[2021-07-10] MEDS: INSULIN GLARGINE SOLOSTAR 100 UNITS/ML 3 ML PEN SC SCH (20:07)
[2021-07-10] MEDS ORDERED: buprenorphine HCL 8 MG SUBL SL STA (22:10)
[2021-07-11] MEDS: traMADol HCL 50 MG TABLET PO PRN ×4 (03:47→22:53)
[2021-07-11] MEDS: AMPICILLIN 2,000 MG in SODIUM CHLOR 0.9% AD-VAN 100 ML IV SCH ×3 (06:27→17:00)
[2021-07-11] MEDS: PANTOprazole 40 MG TAB PO SCH (06:28)
[2021-07-11 08:22] LABS: INR 1.4 (0.9-1.1); Prothrombin Time 13.5 Seconds (9.0-12.0)
[2021-07-11] MEDS: INSULIN ASPART 100 UNITS/ML 3 ML PEN SC SCH ×4 (08:42→22:35)
[2021-07-11] MEDS: FUROSEMIDE 40 MG in SYRINGE 0 ML IV SCH ×2 (08:43→16:08)
[2021-07-11] MEDS: buprenorphine HCL 8 MG SUBL SL SCH ×3 (08:45→21:04)
[2021-07-11] MEDS: FAMOTIDINE 20 MG TAB PO SCH (08:46)
[2021-07-11] MEDS: TAMSULOSIN HCL 0.4 MG CAP PO SCH (08:48)
[2021-07-11] MEDS: GABAPENTIN 800 MG TAB PO SCH ×3 (08:48→21:05)
[2021-07-11] MEDS: ADVANCED PROBIOTIC 1250 MG CAPSULE PO SCH ×3 (08:49→21:05)
[2021-07-11] MEDS: FLUTICASONE PROPIONATE NA SPR 16 GM BTL SCH (08:50)
[2021-07-11] MEDS: FOLIC ACID 1 MG TAB PO SCH (08:50)
[2021-07-11] MEDS: ISOSORBIDE MONO EXTENDED REL 30 MG TABCR PO SCH (08:51)
[2021-07-11] MEDS: SPIRONOLACTONE 25 MG TAB PO SCH (08:51)
[2021-07-11] MEDS: levoFLOXacin 750 MG TAB PO SCH (08:52)
[2021-07-11 08:57] LABS: BUN Creatinine Ratio 17.6 (10-20); Calcium 9.9 mg/dl (8.5-10.1); Est GFR (African American) 88.3 ml/min; Est GFR (Non-African American) 76.2 ml/min; Potassium 4.2 mmol/L (3.5-5.1)
[2021-07-11] MEDS: ASPIRIN 81 MG ECTAB PO SCH (08:59)
[2021-07-11] MEDS: ERGOCALCIFEROL 50,000 UNITS 1250 MCG CAP PO SCH (09:01)
[2021-07-11] MEDS: FINASTERIDE 5 MG TAB PO SCH (09:02)
[2021-07-11] MEDS: FLUTICASONE/VILANTEROL 100/25MCG 14 PUFFS/INHALER INH SCH (09:03)
[2021-07-11] MEDS: METOPROLOL SUCC 25MG EXT REL TAB PO SCH ×2 (09:04→21:05)
[2021-07-11] MEDS: UMECLIDINIUM BROMIDE 62.5MCG/BLISTER 7 PUFFS/INHALER INH SCH (09:04)
[2021-07-11] MEDS: ENOXAPARIN INJ 40 MG/0.4 ML SYR SQ SCH ×2 (09:05→21:05)
[2021-07-11] MEDS: DULoxetine HCL 60 MG CAP PO SCH (09:06)
[2021-07-11] MEDS: METHENAMINE HIPPURATE 1 GM TAB PO SCH (09:07)
[2021-07-11] MEDS: POLYETHYLENE (MIRALAX) 17 GM PACK PO SCH (10:00)
[2021-07-11] MEDS: DOCUSATE SODIUM 100 MG CAP PO SCH ×2 (10:00→21:04)
[2021-07-11] MEDS: POTASSIUM CHLORIDE CRTAB 20 MEQ TABCR PO SCH ×2 (10:00→22:08)
[2021-07-11] MEDS: NICOTINE 21 MG/24 HR TDSY TD SCH (10:00)
[2021-07-11] MEDS: LORazepam 0.5 MG TAB PO PRN ×2 (10:06→22:07)
[2021-07-11] MEDS: ATORVASTATIN 40 MG TAB PO SCH (12:15)
[2021-07-11] MEDS: WARFARIN SOD 10 MG TAB PO SCH (16:07)
--- NOTE | 2021-07-11 17:48 | Hospitalist Progress Note ---
Date of Service July 11, 2021 Assessment & Plan (1) Acute on chronic diastolic heart failure: Plan: Presented with about 20 pounds weight gain in a few days with associated shortness of breath and increasing leg swelling Noted to have chest x-ray evidence of CHF Repeat CXR Cardiomegaly without evidence of pulmonary edema. Monitor I's and O's, daily weight Diuresing well Continue IV Lasix 40mg BID Needs follow-up with cardiology upon discharge Plan to transition to p.o. diuretics in 1 to 2 days (2) COPD exacerbation: Plan: Chronic respiratory failure with hypoxia--uses 4 L at bedtime and intermittently H/O COPD and may have mild exacerbation Continue with nebulized bronchodilator and inhalers (3) Obesity hypoventilation syndrome: Plan: BMI 60 (4) Urinary tract infection associated with catheterization of urinary tract: Plan: H/O Indwelling Lloyd catheter with recurrent urinary tract infection UTI:POA Likely secondary to chronic Lloyd catheter Urine culture growing gram-negative bacilli, Enterococcus faecalis Changed Lloyd catheter Continue Zosyn >> Transition to Levaquin, ampicillin on 07/10 Follow up final culture (5) DM type 2 (diabetes mellitus, type 2): Plan: We will continue with his usual insulin at home SSI (6) Anticoagulated on Coumadin: Plan: H/O PE and DVT INR Subtherapeutic Continue Coumadin Monitor INR:1.4 Continue Coumadin to 10 mg today Lovenox SQ until INR is therapeutic (7) HTN (hypertension): Plan: Blood pressure is stable Continue current medications (8) Chronic pain disorder: Plan: Has been on Ultram He has been on 100 mg Ultram every 6 hourly as needed He cyclobenzaprine has been discontinued because of severe interaction Continue current meds BPH Continue current medicine DVT Px: Coumadin Lovenox SQ till INR therapeutic CODE STATUS Full Code Admission and Anticipated Discharge Date Admission Date: July 05, 2021 Subjective Patient is seen and examined bedside No new complaints Diuresing well Leg edema much improved Denies any chest pain, dyspnea, dizziness, nausea, abdominal pain Review of Systems Review of Systems: All systems reviewed & are unremarkable except as noted in Subjective Physical Exam Physical Exam: Physical Exam: Vitals signs as noted above General Appearance:Morbidly Obese, no apparent distress Head: normocephalic, Atraumatic Eyes: normal inspection, EOMI Neck: supple, Trachea midline Respiratory/Chest: Decreased breath sounds, CTA Cardiovascular: S1, S2, No murmur Abdomen/GI:Soft, Non tender, Bowel sounds present Extremities/Musculoskeletal:normal inspection, B/L LE edema Neurologic/Psych:AAOX3, grossly no focal neurological deficits Skin: normal color, warm Results & Data Results & Data ([facility]) Vital Signs (Past 12 Hours) Vital Signs Temp Pulse Pulse Resp BP Pulse Ox 07/11/21 16:47 66 07/11/21 15:00 37.1 C 70 20 105/59 L 93 07/11/21 11:58 36.7 C 79 22 124/70 99 07/11/21 08:00 36.8 C 76 18 129/69 95 Laboratory Results BMP 07/11/21 07:57 Sodium 138 Potassium 4.2 Chloride 103 Carbon Dioxide 31 BUN 20 H Creatinine 1.12 Glucose 113 H Calcium 9.9 (1) Urinary tract infection associated with catheterization of urinary tract Encounter type: initial encounter Indwelling urinary catheter type: indwelling urethral catheter Qualified Code(s): T83.511A - Infection and inflammatory reaction due to indwelling urethral catheter, initial encounter; N39.0 - Urinary tract infection, site not specified (2) HTN (hypertension) Hypertension type: essential hypertension Qualified Code(s): I10 - Essential (primary) hypertension
[2021-07-11] MEDS: INSULIN GLARGINE SOLOSTAR 100 UNITS/ML 3 ML PEN SC SCH (22:06)
[2021-07-11] MEDS: MELATONIN 3 MG TAB PO PRN (22:07)
[2021-07-12] MEDS: AMPICILLIN 2,000 MG in SODIUM CHLOR 0.9% AD-VAN 100 ML IV SCH ×4 (00:18→17:07)
[2021-07-12] MEDS: traMADol HCL 50 MG TABLET PO PRN ×3 (05:00→18:01)
[2021-07-12] MEDS: PHENAZOPYRIDINE HCL 100 MG TAB PO PRN (05:00)
[2021-07-12 06:20] LABS: INR 1.6 (0.9-1.1); Prothrombin Time 15.6 Seconds (9.0-12.0)
[2021-07-12] MEDS: PANTOprazole 40 MG TAB PO SCH (06:37)
[2021-07-12 06:41] LABS: BUN Creatinine Ratio 18.4 (10-20); Calcium 9.7 mg/dl (8.5-10.1); Est GFR (African American) 98.9 ml/min; Est GFR (Non-African American) 85.3 ml/min
[2021-07-12] MEDS: SENNA 8.6 MG TAB PO PRN (08:28)
[2021-07-12] MEDS: ISOSORBIDE MONO EXTENDED REL 30 MG TABCR PO SCH (08:28)
[2021-07-12] MEDS: buprenorphine HCL 8 MG SUBL SL SCH ×3 (08:28→21:05)
[2021-07-12] MEDS: SPIRONOLACTONE 25 MG TAB PO SCH (08:30)
[2021-07-12] MEDS: TAMSULOSIN HCL 0.4 MG CAP PO SCH (08:30)
[2021-07-12] MEDS: DULoxetine HCL 60 MG CAP PO SCH (08:30)
[2021-07-12] MEDS: GABAPENTIN 800 MG TAB PO SCH ×3 (08:30→21:05)
[2021-07-12] MEDS: ASPIRIN 81 MG ECTAB PO SCH (08:30)
[2021-07-12] MEDS: FAMOTIDINE 20 MG TAB PO SCH (08:31)
[2021-07-12] MEDS: METHENAMINE HIPPURATE 1 GM TAB PO SCH (08:31)
[2021-07-12] MEDS: levoFLOXacin 750 MG TAB PO SCH (08:31)
[2021-07-12] MEDS: FOLIC ACID 1 MG TAB PO SCH (08:31)
[2021-07-12] MEDS: ADVANCED PROBIOTIC 1250 MG CAPSULE PO SCH ×3 (08:31→21:05)
[2021-07-12] MEDS: FINASTERIDE 5 MG TAB PO SCH (08:31)
[2021-07-12] MEDS: UMECLIDINIUM BROMIDE 62.5MCG/BLISTER 7 PUFFS/INHALER INH SCH (08:32)
[2021-07-12] MEDS: POTASSIUM CHLORIDE CRTAB 20 MEQ TABCR PO SCH ×2 (08:32→21:06)
[2021-07-12] MEDS: FLUTICASONE/VILANTEROL 100/25MCG 14 PUFFS/INHALER INH SCH (08:32)
[2021-07-12] MEDS: FLUTICASONE PROPIONATE NA SPR 16 GM BTL SCH (08:33)
[2021-07-12] MEDS: NICOTINE 21 MG/24 HR TDSY TD SCH (08:33)
[2021-07-12] MEDS: INSULIN ASPART 100 UNITS/ML 3 ML PEN SC SCH ×4 (08:34→21:06)
[2021-07-12] MEDS: FUROSEMIDE 40 MG in SYRINGE 0 ML IV SCH ×2 (08:36→17:06)
[2021-07-12] MEDS: DOCUSATE SODIUM 100 MG CAP PO SCH ×2 (08:41→21:05)
[2021-07-12] MEDS: POLYETHYLENE (MIRALAX) 17 GM PACK PO SCH (08:41)
[2021-07-12] MEDS: LORazepam 0.5 MG TAB PO PRN ×2 (08:41→21:11)
[2021-07-12] MEDS: METOPROLOL SUCC 25MG EXT REL TAB PO SCH ×2 (08:42→21:05)
[2021-07-12] MEDS: ATORVASTATIN 40 MG TAB PO SCH (11:15)
[2021-07-12] MEDS: ENOXAPARIN INJ 40 MG/0.4 ML SYR SQ SCH ×2 (11:16→21:06)
[2021-07-12] MEDS ORDERED: WARFARIN SOD 5 MG TAB PO SCH (16:00)
--- NOTE | 2021-07-12 16:19 | Hospitalist Progress Note ---
Date of Service July 12, 2021 Assessment & Plan (1) Acute on chronic diastolic heart failure: Plan: Presented with about 20 pounds weight gain in a few days with associated shortness of breath and increasing leg swelling Noted to have chest x-ray evidence of CHF Repeat CXR Cardiomegaly without evidence of pulmonary edema. Monitor I's and O's, daily weight Diuresing well Continue IV Lasix 40mg BID Needs follow-up with cardiology upon discharge Plan to transition to p.o. diuretics tomorrow Status improved (2) COPD exacerbation: Plan: Chronic respiratory failure with hypoxia--uses 4 L at bedtime and intermittently H/O COPD and may have mild exacerbation Continue with nebulized bronchodilator and inhalers (3) Obesity hypoventilation syndrome: Plan: BMI 60 (4) Urinary tract infection associated with catheterization of urinary tract: Plan: H/O Indwelling Lloyd catheter with recurrent urinary tract infection UTI:POA Likely secondary to chronic Lloyd catheter Urine culture growing , Enterococcus faecalis, nonfermenter species Changed Lloyd catheter Continue Zosyn >> Transition to Levaquin, ampicillin on 07/10 Continue ampicillin Day 3/5 Started on Bactrim day 1 (5) DM type 2 (diabetes mellitus, type 2): Plan: We will continue with his usual insulin at home SSI (6) Anticoagulated on Coumadin: Plan: H/O PE and DVT INR Subtherapeutic Continue Coumadin Monitor INR:1.6 Continue Coumadin to 5mg today Lovenox SQ until INR is therapeutic (7) HTN (hypertension): Plan: Blood pressure is stable Continue current medications (8) Chronic pain disorder: Plan: Has been on Ultram He has been on 100 mg Ultram every 6 hourly as needed He cyclobenzaprine has been discontinued because of severe interaction Continue current meds BPH Continue current medicine DVT Px: Coumadin Lovenox SQ till INR therapeutic CODE STATUS Full Code Admission and Anticipated Discharge Date Admission Date: July 05, 2021 Subjective Patient is seen and examined bedside States feeling well today Leg edema continues to improve Denies any chest pain, dyspnea, dizziness, nausea, abdominal pain Review of Systems Review of Systems: All systems reviewed & are unremarkable except as noted in Subjective Physical Exam Physical Exam: Physical Exam: Vitals signs as noted above General Appearance:Morbidly Obese, no apparent distress Head: normocephalic, Atraumatic Eyes: normal inspection, EOMI Neck: supple, Trachea midline Respiratory/Chest: Decreased breath sounds, CTA Cardiovascular: S1, S2, No murmur Abdomen/GI:Soft, Non tender, Bowel sounds present Extremities/Musculoskeletal:normal inspection, B/L LE edema improving Neurologic/Psych:AAOX3, grossly no focal neurological deficits Skin: normal color, warm Results & Data Results & Data ([facility]) Vital Signs (Past 12 Hours) Vital Signs Temp Pulse Pulse Resp BP Pulse Ox 07/12/21 15:16 36.6 C 66 18 122/73 94 07/12/21 11:00 36.8 C 62 20 141/81 H 93 07/12/21 09:49 55 L 07/12/21 07:00 36.6 C 55 L 18 105/69 97 07/12/21 05:24 56 L Laboratory Results [facility] 07/12/21 05:49 Sodium 138 Potassium 4.0 Chloride 103 Carbon Dioxide 31 BUN 19 H Creatinine 1.02 Glucose 125 H Calcium 9.7 (1) Urinary tract infection associated with catheterization of urinary tract Encounter type: initial encounter Indwelling urinary catheter type: indwelling urethral catheter Qualified Code(s): T83.511A - Infection and inflammatory reaction due to indwelling urethral catheter, initial encounter; N39.0 - Urinary tract infection, site not specified (2) HTN (hypertension) Hypertension type: essential hypertension Qualified Code(s): I10 - Essential (primary) hypertension
[2021-07-12] MEDS: SULFAMETHOXAZOLE/TRIMETHOPRIM DS 800/160MG TAB PO SCH (21:06)
[2021-07-12] MEDS: INSULIN GLARGINE SOLOSTAR 100 UNITS/ML 3 ML PEN SC SCH (21:08)
[2021-07-12] MEDS: MELATONIN 3 MG TAB PO PRN (21:10)
[2021-07-13] MEDS: traMADol HCL 50 MG TABLET PO PRN ×4 (00:01→18:32)
[2021-07-13] MEDS: AMPICILLIN 2,000 MG in SODIUM CHLOR 0.9% AD-VAN 100 ML IV SCH ×4 (06:05→17:16)
[2021-07-13] MEDS: PANTOprazole 40 MG TAB PO SCH (06:05)
[2021-07-13 08:25] LABS: INR 1.4 (0.9-1.1)
[2021-07-13 08:30] LABS: BUN Creatinine Ratio 19.1 (10-20); Calcium 9.7 mg/dl (8.5-10.1); Creatinine Clr Calc Pharmacy 157.6 ml/min; Est GFR (African American) 100.1 ml/min; Est GFR (Non-African American) 86.3 ml/min; Potassium 4.3 mmol/L (3.5-5.1)
[2021-07-13] MEDS: NICOTINE 21 MG/24 HR TDSY TD SCH (08:57)
[2021-07-13] MEDS: DULoxetine HCL 60 MG CAP PO SCH (08:58)
[2021-07-13] MEDS: POTASSIUM CHLORIDE CRTAB 20 MEQ TABCR PO SCH ×2 (08:58→20:22)
[2021-07-13] MEDS: SPIRONOLACTONE 25 MG TAB PO SCH (08:58)
[2021-07-13] MEDS: FINASTERIDE 5 MG TAB PO SCH (08:58)
[2021-07-13] MEDS: SULFAMETHOXAZOLE/TRIMETHOPRIM DS 800/160MG TAB PO SCH ×2 (08:58→20:21)
[2021-07-13] MEDS: FOLIC ACID 1 MG TAB PO SCH (08:58)
[2021-07-13] MEDS: ASPIRIN 81 MG ECTAB PO SCH (08:58)
[2021-07-13] MEDS: FAMOTIDINE 20 MG TAB PO SCH (08:58)
[2021-07-13] MEDS: ISOSORBIDE MONO EXTENDED REL 30 MG TABCR PO SCH (08:58)
[2021-07-13] MEDS: TAMSULOSIN HCL 0.4 MG CAP PO SCH (08:59)
[2021-07-13] MEDS: ADVANCED PROBIOTIC 1250 MG CAPSULE PO SCH ×3 (08:59→20:21)
[2021-07-13] MEDS: POLYETHYLENE (MIRALAX) 17 GM PACK PO SCH (08:59)
[2021-07-13] MEDS: METOPROLOL SUCC 25MG EXT REL TAB PO SCH ×2 (08:59→20:21)
[2021-07-13] MEDS: GABAPENTIN 800 MG TAB PO SCH ×3 (09:00→20:21)
[2021-07-13] MEDS: FUROSEMIDE 40 MG in SYRINGE 0 ML IV SCH (09:00)
[2021-07-13] MEDS: ENOXAPARIN INJ 40 MG/0.4 ML SYR SQ SCH ×2 (09:00→20:22)
[2021-07-13] MEDS: FLUTICASONE/VILANTEROL 100/25MCG 14 PUFFS/INHALER INH SCH (09:01)
[2021-07-13] MEDS: UMECLIDINIUM BROMIDE 62.5MCG/BLISTER 7 PUFFS/INHALER INH SCH (09:01)
[2021-07-13] MEDS: FLUTICASONE PROPIONATE NA SPR 16 GM BTL SCH (09:01)
[2021-07-13] MEDS: INSULIN ASPART 100 UNITS/ML 3 ML PEN SC SCH ×4 (09:02→20:26)
[2021-07-13] MEDS: buprenorphine HCL 8 MG SUBL SL SCH ×3 (09:13→20:21)
[2021-07-13] MEDS: LORazepam 0.5 MG TAB PO PRN ×2 (09:13→20:21)
[2021-07-13] MEDS: DOCUSATE SODIUM 100 MG CAP PO SCH ×2 (09:13→20:21)
[2021-07-13] MEDS: ATORVASTATIN 40 MG TAB PO SCH (12:31)
[2021-07-13] MEDS: PHENAZOPYRIDINE HCL 100 MG TAB PO PRN (15:00)
[2021-07-13] MEDS: DICLOFENAC SOD 1% GEL 100 GM TUBE EXT PRN (15:00)
--- NOTE | 2021-07-13 17:00 | Hospitalist Progress Note ---
Date of Service July 13, 2021 Assessment & Plan (1) Acute on chronic diastolic heart failure: Plan: Presented with about 20 pounds weight gain in a few days with associated shortness of breath and increasing leg swelling Noted to have chest x-ray evidence of CHF Repeat CXR Cardiomegaly without evidence of pulmonary edema. Monitor I's and O's, daily weight Diuresing well Needs follow-up with cardiology upon discharge Volume Status improved IV Lasix transitioned to PO (2) COPD exacerbation: Plan: Chronic respiratory failure with hypoxia--uses 4 L at bedtime and intermittently H/O COPD and may have mild exacerbation Continue with nebulized bronchodilator and inhalers (3) Obesity hypoventilation syndrome: Plan: BMI 60 (4) Urinary tract infection associated with catheterization of urinary tract: Plan: H/O Indwelling Lloyd catheter with recurrent urinary tract infection UTI:POA Likely secondary to chronic Lloyd catheter Urine culture growing , Enterococcus faecalis, nonfermenter species Changed Lloyd catheter Continue Zosyn >> Transition to Levaquin, ampicillin on 07/10 Continue ampicillin Day 12/23 Started on Bactrim day 2 (5) DM type 2 (diabetes mellitus, type 2): Plan: We will continue with his usual insulin at home SSI (6) Anticoagulated on Coumadin: Plan: H/O PE and DVT INR Subtherapeutic Continue Coumadin Monitor INR:1.4 Increase Coumadin to 7.5mg today Lovenox SQ until INR is therapeutic (7) HTN (hypertension): Plan: Blood pressure is stable Continue current medications (8) Chronic pain disorder: Plan: Has been on Ultram He has been on 100 mg Ultram every 6 hourly as needed He cyclobenzaprine has been discontinued because of severe interaction Continue current meds BPH Continue current medicine DVT Px: Coumadin Lovenox SQ till INR therapeutic CODE STATUS Full Code Admission and Anticipated Discharge Date Admission Date: July 05, 2021 Subjective Patient is seen and examined bedside States having chronic leg pain Otherwise no new complaints Interested in rehab placement Denies any chest pain, dyspnea, dizziness, nausea, abdominal pain Review of Systems Review of Systems: All systems reviewed & are unremarkable except as noted in Subjective Physical Exam Physical Exam: Physical Exam: Vitals signs as noted above General Appearance:Morbidly Obese, no apparent distress Head: normocephalic, Atraumatic Eyes: normal inspection, EOMI Neck: supple, Trachea midline Respiratory/Chest: Decreased breath sounds, CTA Cardiovascular: S1, S2, No murmur Abdomen/GI:Soft, Non tender, Bowel sounds present Extremities/Musculoskeletal:normal inspection, B/L LE edema improving Neurologic/Psych:AAOX3, grossly no focal neurological deficits Skin: normal color, warm Results & Data Results & Data ([facility]) Vital Signs (Past 12 Hours) Vital Signs Temp Pulse Resp BP Pulse Ox 07/13/21 06:44 36.7 C 60 20 112/68 94 (1) Urinary tract infection associated with catheterization of urinary tract Encounter type: initial encounter Indwelling urinary catheter type: indwelling urethral catheter Qualified Code(s): T83.511A - Infection and inflammatory reaction due to indwelling urethral catheter, initial encounter; N39.0 - Urinary tract infection, site not specified (2) HTN (hypertension) Hypertension type: essential hypertension Qualified Code(s): I10 - Essential (primary) hypertension
[2021-07-13] MEDS: WARFARIN SOD 7.5 MG TAB PO SCH (17:17)
[2021-07-13] MEDS: FUROSEMIDE 40 MG TAB PO SCH (17:17)
[2021-07-13] MEDS: MELATONIN 3 MG TAB PO PRN (20:21)
[2021-07-13] MEDS: INSULIN GLARGINE SOLOSTAR 100 UNITS/ML 3 ML PEN SC SCH (20:26)
[2021-07-13] MEDS ORDERED: Nursing to Pharmacy Communication SCH (21:45)
[2021-07-14] MEDS: traMADol HCL 50 MG TABLET PO PRN ×4 (00:30→18:32)
[2021-07-14] MEDS: AMPICILLIN 2,000 MG in SODIUM CHLOR 0.9% AD-VAN 100 ML IV SCH ×4 (01:00→20:58)
[2021-07-14] MEDS: PANTOprazole 40 MG TAB PO SCH (06:30)
[2021-07-14 07:10] LABS: Hematocrit (blood only) 42.2 % (42-52); Hemoglobin 13.5 g/dL (14.0-18.0); Mean Corpuscular Hemoglobin 26.5 pg (25-34); Mean Corpuscular Volume 82.7 fL (80-100); Mean Platelet Volume 10.5 fL (7.4-10.4); Platelet Count 282 K/uL (130-400); RDW Coefficient of Variation 17.1 % (11.5-14.5); RDW Standard Deviation 52.2 fL (36.4-46.3); White Blood Count 10.94 K/uL (4.8-10.8)
[2021-07-14 07:21] LABS: INR 1.2 (0.9-1.1); Prothrombin Time 12.1 Seconds (9.0-12.0)
[2021-07-14 07:41] LABS: BUN Creatinine Ratio 14.7 (10-20); Calcium 9.9 mg/dl (8.5-10.1); Est GFR (African American) 91.2 ml/min; Est GFR (Non-African American) 78.7 ml/min; Potassium 4.2 mmol/L (3.5-5.1)
[2021-07-14] MEDS: INSULIN ASPART 100 UNITS/ML 3 ML PEN SC SCH ×4 (08:38→21:15)
[2021-07-14] MEDS: SPIRONOLACTONE 25 MG TAB PO SCH (08:42)
[2021-07-14] MEDS: GABAPENTIN 800 MG TAB PO SCH ×3 (08:42→21:13)
[2021-07-14] MEDS: ISOSORBIDE MONO EXTENDED REL 30 MG TABCR PO SCH (08:42)
[2021-07-14] MEDS: TAMSULOSIN HCL 0.4 MG CAP PO SCH (08:42)
[2021-07-14] MEDS: POTASSIUM CHLORIDE CRTAB 20 MEQ TABCR PO SCH ×2 (08:44→21:17)
[2021-07-14] MEDS: SULFAMETHOXAZOLE/TRIMETHOPRIM DS 800/160MG TAB PO SCH ×2 (08:44→21:19)
[2021-07-14] MEDS: FUROSEMIDE 40 MG TAB PO SCH ×2 (08:44→16:09)
[2021-07-14] MEDS: METOPROLOL SUCC 25MG EXT REL TAB PO SCH ×2 (08:44→21:17)
[2021-07-14] MEDS: FINASTERIDE 5 MG TAB PO SCH (08:44)
[2021-07-14] MEDS: FOLIC ACID 1 MG TAB PO SCH (08:45)
[2021-07-14] MEDS: SENNA 8.6 MG TAB PO PRN (08:45)
[2021-07-14] MEDS: DULoxetine HCL 60 MG CAP PO SCH (08:45)
[2021-07-14] MEDS: PHENAZOPYRIDINE HCL 100 MG TAB PO PRN ×2 (08:45→14:11)
[2021-07-14] MEDS: ENOXAPARIN INJ 40 MG/0.4 ML SYR SQ SCH ×2 (08:46→21:19)
[2021-07-14] MEDS: ADVANCED PROBIOTIC 1250 MG CAPSULE PO SCH ×3 (08:46→21:16)
[2021-07-14] MEDS: NICOTINE 21 MG/24 HR TDSY TD SCH (08:46)
[2021-07-14] MEDS: FAMOTIDINE 20 MG TAB PO SCH (08:47)
[2021-07-14] MEDS: ASPIRIN 81 MG ECTAB PO SCH (08:47)
[2021-07-14] MEDS: UMECLIDINIUM BROMIDE 62.5MCG/BLISTER 7 PUFFS/INHALER INH SCH (08:48)
[2021-07-14] MEDS: FLUTICASONE/VILANTEROL 100/25MCG 14 PUFFS/INHALER INH SCH (08:50)
[2021-07-14] MEDS: FLUTICASONE PROPIONATE NA SPR 16 GM BTL SCH (08:50)
[2021-07-14] MEDS: DOCUSATE SODIUM 100 MG CAP PO SCH ×2 (09:08→21:13)
[2021-07-14] MEDS: LORazepam 0.5 MG TAB PO PRN ×2 (09:09→21:09)
[2021-07-14] MEDS: buprenorphine HCL 8 MG SUBL SL SCH ×3 (09:23→21:09)
[2021-07-14] MEDS: POLYETHYLENE (MIRALAX) 17 GM PACK PO SCH (09:58)
[2021-07-14] MEDS: ATORVASTATIN 40 MG TAB PO SCH (12:11)
--- NOTE | 2021-07-14 15:37 | Hospitalist Progress Note ---
Date of Service July 14, 2021 Assessment & Plan (1) Acute on chronic diastolic heart failure: Plan: Presented with about 20 pounds weight gain in a few days with associated shortness of breath and increasing leg swelling Noted to have chest x-ray evidence of CHF Repeat CXR Cardiomegaly without evidence of pulmonary edema. Diuresing well-cumulative balance is [phone] as of 07/14/2021 Needs follow-up with cardiology upon discharge Volume Status improved IV Lasix transitioned to PO Awaiting placement (2) COPD exacerbation: Plan: Chronic respiratory failure with hypoxia--uses 4 L at bedtime and intermittently H/O COPD and may have mild exacerbation Continue with nebulized bronchodilator and inhalers (3) Obesity hypoventilation syndrome: Plan: BMI 60 (4) Urinary tract infection associated with catheterization of urinary tract: Plan: H/O Indwelling Lloyd catheter with recurrent urinary tract infection UTI:POA Likely secondary to chronic Lloyd catheter Urine culture growing , Enterococcus faecalis, nonfermenter species Changed Lloyd catheter Continue Zosyn >> Transition to Levaquin, ampicillin on 07/10 Ampicillin course is done after today Started on Bactrim day 3 (5) DM type 2 (diabetes mellitus, type 2): Plan: We will continue with his usual insulin at home SSI (6) Anticoagulated on Coumadin: Plan: H/O PE and DVT INR Subtherapeutic Continue Coumadin Monitor INR:1.2 on 07/14/2021 Increase Coumadin to 7.5mg today Lovenox SQ until INR is therapeutic (7) HTN (hypertension): Plan: Blood pressure is stable Continue current medications (8) Chronic pain disorder: Plan: Has been on Ultram He has been on 100 mg Ultram every 6 hourly as needed He cyclobenzaprine has been discontinued because of severe interaction Continue current meds BPH Continue current medicine DVT Px: Coumadin Lovenox SQ till INR therapeutic CODE STATUS Full Code Admission and Anticipated Discharge Date Admission Date: July 05, 2021 Subjective 07/14/2021 The patient was seen and examined in medical telemetry unit He has been waiting to be placed Complains to have some wheezing especially when ambulate Remains weak and lethargic Review of Systems Review of Systems: All systems reviewed and are unremarkable except as noted below Physical Exam Physical Exam: Sitting at the edge of the bed with minimal wheezing and shortness of breath Constitutional: well developed, well nourished and + morbidly obese; not ill appearing Eyes: PERRL, conjunctivae normal, anicteric sclerae ENMT: external ear and nose normal, oropharynx normal Neck: trachea midline, no thyromegaly Respiratory: + respiratory distress (Minimal distress at rest), + cough and + audible wheezes Auscultation: + diminished lung sounds, + crackles (Minimal crackles at the bases) and + wheezes (Mild wheezing all over-improves with cough) Cardiovascular: Rate/Rhythm: regular rate and regular rhythm; not tachycardic Heart Sounds: normal S1 and normal S2; no murmur Extremities: + edema (1+ edema bilaterally with chronic skin changes) Gastrointestinal (Abdomen): Inspection/Auscultation: + abdomen distended and normal bowel sounds Percussion/Palpation: abdomen soft; abdomen nontender Musculoskeletal: No acute arthritis in any joint Neurologic: Alert, 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. No focal sensory and motor deficit appreciated Results & Data Results & Data ([facility]) Vital Signs (Past 12 Hours) Vital Signs Temp Pulse Resp BP Pulse Ox 07/14/21 07:52 36.7 C 60 18 119/74 99 Laboratory Results Short CBC 07/14/21 Range/Units 06:38 WBC 10.94 H (4.8-10.8) K/uL Hgb 13.5 L (14.0-18.0) g/dL Hct 42.2 (42-52) % Plt Count 282 (130-400) K/uL BMP 07/14/21 06:38 Sodium 138 Potassium 4.2 Chloride 103 Carbon Dioxide 31 BUN 16 Creatinine 1.09 Glucose 106 H Calcium 9.9 Medications Administered Current Inpatient Medications Acetaminophen (Acetaminophen 325 Mg Tab) 650 mg PO Q4H PRN PRN Reason: Pain or Fever Stop: 08/04/21 06:04 Albuterol (Albuterol Hfa 8 Gm Inhaler) 2 puffs INH Q4 PRN PRN Reason: Dyspnea Stop: 08/04/21 06:04 Albuterol (Albut/Ipratrop 3mg/0.5mg Neb 3 Ml Vial) 3 ml INH Q6H PRN PRN Reason: Shortness Of Breath Or Wheezing Stop: 08/04/21 06:04 Aspirin (Aspirin 81 Mg Ectab) 81 mg PO QAM [facility] Stop: 08/04/21 08:59 Last Admin: 07/14/21 08:47 Dose: 81 mg Documented by: Atorvastatin [place] (Atorvastatin 40 Mg Tab) 80 mg PO QDL [facility] Stop: 08/04/21 11:29 Last Admin: 07/14/21 12:11 Dose: 80 mg Documented by: Buprenorphine HCl (Buprenorphine Hcl 8 Mg Subl) 8 mg SL TID [facility] Stop: 08/04/21 08:59 Last Admin: 07/14/21 14:16 Dose: 8 mg Documented by: Cyclobenzaprine HCl (Cyclobenzaprine Hcl 10 Mg Tab) 10 mg PO BID PRN PRN Reason: Muscle Spasm Stop: 08/04/21 06:04 Last Admin: 07/06/21 09:02 Dose: 10 mg Documented by: Diclofenac Sodium (Diclofenac Sod 1% Gel 100 Gm Tube) 2 gm EXT QID PRN PRN Reason: knee pain Stop: 08/12/21 08:59 Last Admin: 07/13/21 15:00 Dose: 2 gm Documented by: Docusate Sodium (Docusate Sodium 100 Mg Cap) 100 mg PO BID [facility] Stop: 08/04/21 08:59 Last Admin: 07/14/21 09:08 Dose: 100 mg Documented by: Duloxetine HCl (Duloxetine Hcl 60 Mg Cap) 60 mg PO DAILY [facility] Stop: 08/04/21 08:59 Last Admin: 07/14/21 08:45 Dose: 60 mg Documented by: Enoxaparin Sodium (Enoxaparin Inj 40 Mg/0.4 Ml Syr) 40 mg SQ Q12H [facility] Stop: 08/09/21 09:29 Last Admin: 07/14/21 08:46 Dose: 40 mg Documented by: Ergocalciferol (Ergocalciferol 50,000 Units 1250 Mcg Cap) 50,000 units PO Fr@0900 [facility] Stop: 08/10/21 08:59 Last Admin: 07/11/21 09:01 Dose: 50,000 units Documented by: Famotidine (Famotidine 20 Mg Tab) 20 mg PO DAILY [facility] Stop: 08/04/21 08:59 Last Admin: 07/14/21 08:47 Dose: 20 mg Documented by: Finasteride (Finasteride 5 Mg Tab) 5 mg PO QAM [facility] Stop: 08/04/21 08:59 Last Admin: 07/14/21 08:44 Dose: 5 mg Documented by: Fluticasone Propionate (Fluticasone Propionate Na Spr 16 Gm Btl) 2 sprays NA DAILY [facility] Stop: 08/04/21 08:59 Last Admin: 07/14/21 08:50 Dose: 2 sprays Documented by: Fluticasone/Vilanterol (Fluticasone/Vilanterol 100/25mcg 14 Puffs/Inhaler) 1 puffs INH DAILY [facility] Stop: 08/04/21 08:59 Last Admin: 07/14/21 08:50 Dose: 1 puffs Documented by: Folic Acid (Folic Acid 1 Mg Tab) 1 mg PO QAM [facility] Stop: 08/04/21 08:59 Last Admin: 07/14/21 08:45 Dose: 1 mg Documented by: Furosemide (Furosemide 40 Mg Tab) 40 mg PO BID17 [facility] Stop: 08/12/21 16:59 Last Admin: 07/14/21 08:44 Dose: 40 mg Documented by: Gabapentin (Gabapentin 800 Mg Tab) 800 mg PO TID [facility] Stop: 08/04/21 08:59 Last Admin: 07/14/21 14:11 Dose: 800 mg Documented by: Guaifenesin/Dextromethorphan (Guaifenesin/Dextrom Syrup 200mg/20mg 10ml Udc) 10 ml PO Q6H PRN PRN Reason: Cough Stop: 08/07/21 16:40 Last Admin: 07/09/21 03:22 Dose: 10 ml Documented by: Ampicillin Sodium 2,000 mg/ (Sodium Chloride) 100 mls @ 200 mls/hr IV Q6H [facility]; Protocol Stop: 07/20/21 17:59 Last Infusion: 07/14/21 15:22 Dose: Infused Documented by: Insulin Aspart (Insulin Aspart 100 Units/Ml 3 Ml Pen) 0 units SC ACHS [facility] Stop: 08/04/21 07:29 Last Admin: 07/14/21 12:13 Dose: 7 units Documented by: Insulin Glargine (Insulin Glargine Solostar 100 Units/Ml 3 Ml Pen) 50 units SC HS [facility] Stop: 08/04/21 20:59 Last Admin: 07/13/21 20:26 Dose: 50 units Documented by: Isosorbide Mononitrate (Isosorbide [place] Extended Rel 30 Mg Tabcr) 30 mg PO DAILY [facility] Stop: 08/04/21 08:59 Last Admin: 07/14/21 08:42 Dose: 30 mg Documented by: Lactobacillus Acidoph/Casei/Rhamnos (Advanced Probiotic 1250 Mg Capsule) 2 cap PO TID [facility] Stop: 08/04/21 08:59 Last Admin: 07/14/21 14:11 Dose: 2 cap Documented by: Lorazepam (Lorazepam 0.5 Mg Tab) 0.5 mg PO Q8 PRN PRN Reason: Anxiety Stop: 08/04/21 06:04 Last Admin: 07/14/21 09:09 Dose: 0.5 mg Documented by: Melatonin (Melatonin 3 Mg Tab) 9 mg PO HS PRN PRN Reason: Sleep Stop: 08/05/21 23:06 Last Admin: 07/13/21 20:21 Dose: 9 mg Documented by: Methenamine Hippurate (Methenamine Hippurate 1 Gm Tab) 1 gm PO DAILY [facility] Stop: 08/04/21 08:59 Last Admin: 07/12/21 08:31 Dose: 1 gm Documented by: Metoprolol Succinate (Metoprolol Succ 25mg Ext Rel Tab) 75 mg PO BID [facility] Stop: 08/04/21 08:59 Last Admin: 07/14/21 08:44 Dose: 75 mg Documented by: Miscellaneous (Remove Nicoderm Patch) 1 ea N/A DAILY@0859 [facility] Stop: 08/04/21 08:58 Last Admin: 07/14/21 08:41 Dose: 1 ea Documented by: Nicotine (Nicotine 21 Mg/24 Hr Tdsy) 21 mg TD DAILY [facility] Stop: 08/04/21 08:59 Last Admin: 07/14/21 08:46 Dose: 21 mg Documented by: Nitroglycerin (Nitroglycerin Sl 0.4 Mg/Tab Tab) 0.4 mg SL UD PRN PRN Reason: Chest Pain Stop: 08/04/21 06:04 Nystatin (Nystatin Powder 15gm Btl) 1 appln EXT TID PRN PRN Reason: Skin Irritation Stop: 08/04/21 06:04 Ondansetron HCl (Ondansetron Inj 2 Mg/Ml 2 Ml Vial) 4 mg IV Q6H PRN PRN Reason: Nausea Stop: 08/04/21 06:04 Ondansetron HCl (Ondansetron 4 Mg Od Tab) 4 mg PO Q8 PRN PRN Reason: Nausea And Vomiting Stop: 08/04/21 07:09 Pantoprazole Sodium (Pantoprazole 40 Mg Tab) 40 mg PO DAILYBB [facility] Stop: 08/04/21 07:29 Last Admin: 07/14/21 06:30 Dose: 40 mg Documented by: Phenazopyridine HCl (Phenazopyridine Hcl 100 Mg Tab) 100 mg PO TID PRN PRN Reason: Dysuria Stop: 08/09/21 11:05 Last Admin: 07/14/21 14:11 Dose: 100 mg Documented by: Polyethylene Glycol (Polyethylene (Miralax) 17 Gm Pack) 17 gm PO DAILY PRN PRN Reason: Constipation Stop: 08/04/21 06:04 Polyethylene Glycol (Polyethylene (Miralax) 17 Gm Pack) 17 gm PO QAM [facility] Stop: 08/04/21 08:59 Last Admin: 07/14/21 09:58 Dose: 17 gm Documented by: Potassium Chloride (Potassium Chloride Crtab 20 Meq Tabcr) 20 meq PO BID [facility] Stop: 08/04/21 08:59 Last Admin: 07/14/21 08:44 Dose: 20 meq Documented by: Sennosides (Senna 8.6 Mg Tab) 8.6 mg PO DAILY PRN PRN Reason: Constipation Stop: 08/04/21 06:04 Last Admin: 07/14/21 08:45 Dose: 8.6 mg Documented by: Spironolactone (Spironolactone 25 Mg Tab) 25 mg PO QAM [facility] Stop: 08/04/21 08:59 Last Admin: 07/14/21 08:42 Dose: 25 mg Documented by: Tamsulosin HCl (Tamsulosin Hcl 0.4 Mg Cap) 0.4 mg PO QAM [facility] Stop: 08/04/21 08:59 Last Admin: 07/14/21 08:42 Dose: 0.4 mg Documented by: Tramadol HCl (Tramadol Hcl 50 Mg Tablet) 100 mg PO Q6 PRN PRN Reason: Pain Stop: 08/04/21 06:04 Last Admin: 07/14/21 12:29 Dose: 100 mg Documented by: Trimethoprim/Sulfamethoxazole (Sulfamethoxazole/Trimethoprim Ds 800/160mg Tab) 1 tab PO BID [facility] Stop: 07/15/21 09:01 Last Admin: 07/14/21 08:44 Dose: 1 tab Documented by: Umeclidinium [place] (Umeclidinium [place] 62.5mcg/Blister 7 Puffs/Inhaler) 1 puffs INH QAM [facility] Stop: 08/04/21 08:59 Last Admin: 07/14/21 08:48 Dose: 1 puffs Documented by: Warfarin Sodium (Warfarin Sod 7.5 Mg Tab) 7.5 mg PO DAILY@1600 [facility] Stop: 08/12/21 15:59 Last Admin: 07/13/21 17:17 Dose: 7.5 mg Documented by: (1) Urinary tract infection associated with catheterization of urinary tract Encounter type: initial encounter Indwelling urinary catheter type: indwelling urethral catheter Qualified Code(s): T83.511A - Infection and inflammatory reaction due to indwelling urethral catheter, initial encounter; N39.0 - Urinary tract infection, site not specified (2) HTN (hypertension) Hypertension type: essential hypertension Qualified Code(s): I10 - Essential (primary) hypertension
[2021-07-14] MEDS: WARFARIN SOD 7.5 MG TAB PO SCH (16:09)
[2021-07-14] MEDS: MELATONIN 3 MG TAB PO PRN (21:09)
[2021-07-14] MEDS: INSULIN GLARGINE SOLOSTAR 100 UNITS/ML 3 ML PEN SC SCH (21:16)
[2021-07-15] MEDS: traMADol HCL 50 MG TABLET PO PRN ×4 (00:52→19:43)
[2021-07-15] MEDS: AMPICILLIN 2,000 MG in SODIUM CHLOR 0.9% AD-VAN 100 ML IV SCH ×4 (01:00→19:43)
[2021-07-15] MEDS: PANTOprazole 40 MG TAB PO SCH (05:47)
[2021-07-15 06:35] LABS: Basophils # (auto) 0.06 K/uL (0-0.2); Basophils % (auto) 0.5 %; Eosinophils # (auto) 0.63 K/uL (0-0.5); Eosinophils % (auto) 5.4 %; Hematocrit (blood only) 40.9 % (42-52); Hemoglobin 12.8 g/dL (14.0-18.0); Immature Granulocytes # (auto) 0.07 K/uL (0.00-0.02); Immature Granulocytes % (auto) 0.6 %; Lymphocytes # (auto) 3.13 K/uL (1.2-3.4); Lymphocytes % (auto) 26.8 %; Mean Corpuscular Hemoglobin 26.5 pg (25-34); Mean Corpuscular Hgb Conc 31.3 g/dL (32-36); Mean Corpuscular Volume 84.7 fL (80-100); Mean Platelet Volume 10.6 fL (7.4-10.4); Monocytes # (auto) 0.97 K/uL (0.11-0.59); Monocytes % (auto) 8.3 %; Neutrophils # (auto) 6.81 K/uL (1.4-6.5); Neutrophils % (auto) 58.4 %; Platelet Count 262 K/uL (130-400); RDW Standard Deviation 52.9 fL (36.4-46.3); Red Blood Count 4.83 M/uL (4.7-6.1); White Blood Count 11.67 K/uL (4.8-10.8)
[2021-07-15 06:44] LABS: INR 1.1 (0.9-1.1); Prothrombin Time 11.4 Seconds (9.0-12.0)
[2021-07-15 07:03] LABS: BUN Creatinine Ratio 15.3 (10-20); Calcium 9.9 mg/dl (8.5-10.1); Creatinine Clr Calc Pharmacy 148.7 ml/min; Est GFR (African American) 93.3 ml/min; Est GFR (Non-African American) 80.5 ml/min; Potassium 4.3 mmol/L (3.5-5.1)
[2021-07-15] MEDS: ASPIRIN 81 MG ECTAB PO SCH (08:52)
[2021-07-15] MEDS: DULoxetine HCL 60 MG CAP PO SCH (08:53)
[2021-07-15] MEDS: FAMOTIDINE 20 MG TAB PO SCH (08:54)
[2021-07-15] MEDS: FINASTERIDE 5 MG TAB PO SCH (08:55)
[2021-07-15] MEDS: FLUTICASONE PROPIONATE NA SPR 16 GM BTL SCH (08:55)
[2021-07-15] MEDS: FLUTICASONE/VILANTEROL 100/25MCG 14 PUFFS/INHALER INH SCH (08:56)
[2021-07-15] MEDS: FOLIC ACID 1 MG TAB PO SCH (08:56)
[2021-07-15] MEDS: GABAPENTIN 800 MG TAB PO SCH ×3 (08:58→20:34)
[2021-07-15] MEDS: FUROSEMIDE 40 MG TAB PO SCH ×2 (08:58→16:01)
[2021-07-15] MEDS: ISOSORBIDE MONO EXTENDED REL 30 MG TABCR PO SCH (08:59)
[2021-07-15] MEDS: ADVANCED PROBIOTIC 1250 MG CAPSULE PO SCH ×3 (08:59→20:34)
[2021-07-15] MEDS: METOPROLOL SUCC 25MG EXT REL TAB PO SCH ×2 (09:00→22:46)
[2021-07-15] MEDS: NICOTINE 21 MG/24 HR TDSY TD SCH (09:00)
[2021-07-15] MEDS: POLYETHYLENE (MIRALAX) 17 GM PACK PO SCH (09:01)
[2021-07-15] MEDS: POTASSIUM CHLORIDE CRTAB 20 MEQ TABCR PO SCH ×2 (09:01→22:43)
[2021-07-15] MEDS: SPIRONOLACTONE 25 MG TAB PO SCH (09:02)
[2021-07-15] MEDS: TAMSULOSIN HCL 0.4 MG CAP PO SCH (09:03)
[2021-07-15] MEDS: UMECLIDINIUM BROMIDE 62.5MCG/BLISTER 7 PUFFS/INHALER INH SCH (09:03)
[2021-07-15] MEDS: SULFAMETHOXAZOLE/TRIMETHOPRIM DS 800/160MG TAB PO SCH (09:03)
[2021-07-15] MEDS: ENOXAPARIN INJ 40 MG/0.4 ML SYR SQ SCH ×2 (09:04→22:44)
[2021-07-15] MEDS: DOCUSATE SODIUM 100 MG CAP PO SCH ×2 (09:11→22:43)
[2021-07-15] MEDS: LORazepam 0.5 MG TAB PO PRN ×2 (09:11→22:43)
[2021-07-15] MEDS: buprenorphine HCL 8 MG SUBL SL SCH ×3 (09:15→22:43)
[2021-07-15] MEDS: INSULIN ASPART 100 UNITS/ML 3 ML PEN SC SCH ×4 (09:17→20:29)
[2021-07-15] MEDS: ATORVASTATIN 40 MG TAB PO SCH (12:40)
[2021-07-15] MEDS: WARFARIN SOD 7.5 MG TAB PO SCH (16:01)
[2021-07-15] MEDS: DICLOFENAC SOD 1% GEL 100 GM TUBE EXT PRN (16:02)
--- NOTE | 2021-07-15 18:14 | Hospitalist Progress Note ---
Date of Service July 15, 2021 Assessment & Plan (1) Acute on chronic diastolic heart failure: Plan: Presented with about 20 pounds weight gain in a few days with associated shortness of breath and increasing leg swelling Noted to have chest x-ray evidence of CHF Repeat CXR Cardiomegaly without evidence of pulmonary edema. Diuresing well-cumulative balance is [phone] as of 07/14/2021 Needs follow-up with cardiology upon discharge Volume Status improved IV Lasix transitioned to PO Awaiting placement (2) COPD exacerbation: Plan: Chronic respiratory failure with hypoxia--uses 4 L at bedtime and intermittently H/O COPD and may have mild exacerbation Continue with nebulized bronchodilator and inhalers Minimal wheezing on examination but no shortness of breath (3) Obesity hypoventilation syndrome: Plan: BMI 60 (4) Urinary tract infection associated with catheterization of urinary tract: Plan: H/O Indwelling Lloyd catheter with recurrent urinary tract infection UTI:POA Likely secondary to chronic Lloyd catheter Urine culture growing , Enterococcus faecalis, nonfermenter species Changed Lloyd catheter Continue Zosyn >> Transition to Levaquin, ampicillin on 07/10 Ampicillin course is done after today Started on Bactrim day 4-we will stop tomorrow (5) DM type 2 (diabetes mellitus, type 2): Plan: We will continue with his usual insulin at home SSI (6) Anticoagulated on Coumadin: Plan: H/O PE and DVT INR Subtherapeutic Continue Coumadin Monitor INR:1.2 on 07/14/2021 Increase Coumadin to 7.5mg today Lovenox SQ until INR is therapeutic We will check INR tomorrow (7) HTN (hypertension): Plan: Blood pressure is stable Continue current medications (8) Chronic pain disorder: Plan: Has been on Ultram He has been on 100 mg Ultram every 6 hourly as needed He cyclobenzaprine has been discontinued because of severe interaction Continue current meds BPH Continue current medicine DVT Px: Coumadin Lovenox SQ till INR therapeutic CODE STATUS Full Code Admission and Anticipated Discharge Date Admission Date: July 05, 2021 Subjective 07/14/2021 The patient was seen and examined in medical telemetry unit He has been waiting to be placed Complains to have some wheezing especially when ambulate Remains weak and lethargic July 15, 2021 The patient was seen and examined in medical floor He remained stable but complains more pain in the knees and asking for pain medication Review of Systems Review of Systems: All systems reviewed and are unremarkable except as noted below Musculoskeletal: Ongoing pain in the leg and back. Physical Exam Physical Exam: Sitting at the edge of the bed with minimal wheezing and shortness of breath Constitutional: well developed, well nourished and + morbidly obese; not ill appearing Eyes: PERRL, conjunctivae normal, anicteric sclerae ENMT: external ear and nose normal, oropharynx normal Neck: trachea midline, no thyromegaly Respiratory: + respiratory distress (Minimal distress at rest), + cough and + audible wheezes Auscultation: + diminished lung sounds, + crackles (Minimal crackles at the bases) and + wheezes (Mild wheezing all over-improves with cough) Cardiovascular: Rate/Rhythm: regular rate and regular rhythm; not tachycardic Heart Sounds: normal S1 and normal S2; no murmur Extremities: + edema (1+ edema bilaterally with chronic skin changes) Gastrointestinal (Abdomen): Inspection/Auscultation: + abdomen distended and normal bowel sounds Percussion/Palpation: abdomen soft; abdomen nontender Musculoskeletal: Has pain in the knee joints with movement but no acute arthritis Neurologic: Alert, 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 Results & Data Results & Data ([facility]) Vital Signs (Past 12 Hours) Vital Signs Temp Pulse Resp BP Pulse Ox 07/15/21 15:39 36.9 C 74 16 136/80 97 07/15/21 07:31 36.5 C 57 L 16 138/76 99 Laboratory Results Short CBC 07/15/21 Range/Units 05:34 WBC 11.67 H (4.8-10.8) K/uL Hgb 12.8 L (14.0-18.0) g/dL Hct 40.9 L (42-52) % Plt Count 262 (130-400) K/uL BMP 07/15/21 05:34 Sodium 138 Potassium 4.3 Chloride 105 Carbon Dioxide 30 BUN 16 Creatinine 1.07 Glucose 118 H Calcium 9.9 Medications Administered Current Inpatient Medications Acetaminophen (Acetaminophen 325 Mg Tab) 650 mg PO Q4H PRN PRN Reason: Pain or Fever Stop: 08/04/21 06:04 Albuterol (Albuterol Hfa 8 Gm Inhaler) 2 puffs INH Q4 PRN PRN Reason: Dyspnea Stop: 08/04/21 06:04 Albuterol (Albut/Ipratrop 3mg/0.5mg Neb 3 Ml Vial) 3 ml INH Q6H PRN PRN Reason: Shortness Of Breath Or Wheezing Stop: 08/04/21 06:04 Aspirin (Aspirin 81 Mg Ectab) 81 mg PO QAM [facility] Stop: 08/04/21 08:59 Last Admin: 07/15/21 08:52 Dose: 81 mg Documented by: Atorvastatin Calcium (Atorvastatin 40 Mg Tab) 80 mg PO QDL [facility] Stop: 08/04/21 11:29 Last Admin: 07/15/21 12:40 Dose: 80 mg Documented by: Buprenorphine HCl (Buprenorphine Hcl 8 Mg Subl) 8 mg SL TID [facility] Stop: 08/04/21 08:59 Last Admin: 07/15/21 13:45 Dose: 8 mg Documented by: Cyclobenzaprine HCl (Cyclobenzaprine Hcl 10 Mg Tab) 10 mg PO BID PRN PRN Reason: Muscle Spasm Stop: 08/04/21 06:04 Last Admin: 07/06/21 09:02 Dose: 10 mg Documented by: Diclofenac Sodium (Diclofenac Sod 1% Gel 100 Gm Tube) 2 gm EXT QID PRN PRN Reason: knee pain Stop: 08/12/21 08:59 Last Admin: 07/15/21 16:02 Dose: 2 gm Documented by: Docusate Sodium (Docusate Sodium 100 Mg Cap) 100 mg PO BID [facility] Stop: 08/04/21 08:59 Last Admin: 07/15/21 09:11 Dose: 100 mg Documented by: Duloxetine HCl (Duloxetine Hcl 60 Mg Cap) 60 mg PO DAILY [facility] Stop: 08/04/21 08:59 Last Admin: 07/15/21 08:53 Dose: 60 mg Documented by: Enoxaparin Sodium (Enoxaparin Inj 40 Mg/0.4 Ml Syr) 40 mg SQ Q12H [facility] Stop: 08/09/21 09:29 Last Admin: 07/15/21 09:04 Dose: 40 mg Documented by: Ergocalciferol (Ergocalciferol 50,000 Units 1250 Mcg Cap) 50,000 units PO Fr@0900 [facility] Stop: 08/10/21 08:59 Last Admin: 07/11/21 09:01 Dose: 50,000 units Documented by: Famotidine (Famotidine 20 Mg Tab) 20 mg PO DAILY [facility] Stop: 08/04/21 08:59 Last Admin: 07/15/21 08:54 Dose: 20 mg Documented by: Finasteride (Finasteride 5 Mg Tab) 5 mg PO QAM [facility] Stop: 08/04/21 08:59 Last Admin: 07/15/21 08:55 Dose: 5 mg Documented by: Fluticasone Propionate (Fluticasone Propionate Na Spr 16 Gm Btl) 2 sprays NA DAILY [facility] Stop: 08/04/21 08:59 Last Admin: 07/15/21 08:55 Dose: 2 sprays Documented by: Fluticasone/Vilanterol (Fluticasone/Vilanterol 100/25mcg 14 Puffs/Inhaler) 1 puffs INH DAILY [facility] Stop: 08/04/21 08:59 Last Admin: 07/15/21 08:56 Dose: 1 puffs Documented by: Folic Acid (Folic Acid 1 Mg Tab) 1 mg PO QAM [facility] Stop: 08/04/21 08:59 Last Admin: 07/15/21 08:56 Dose: 1 mg Documented by: Furosemide (Furosemide 40 Mg Tab) 40 mg PO BID17 [facility] Stop: 08/12/21 16:59 Last Admin: 07/15/21 16:01 Dose: 40 mg Documented by: Gabapentin (Gabapentin 800 Mg Tab) 800 mg PO TID [facility] Stop: 08/04/21 08:59 Last Admin: 07/15/21 13:27 Dose: 800 mg Documented by: Guaifenesin/Dextromethorphan (Guaifenesin/Dextrom Syrup 200mg/20mg 10ml Udc) 10 ml PO Q6H PRN PRN Reason: Cough Stop: 08/07/21 16:40 Last Admin: 07/09/21 03:22 Dose: 10 ml Documented by: Ampicillin Sodium 2,000 mg/ (Sodium Chloride) 100 mls @ 200 mls/hr IV Q6H [facility]; Protocol Stop: 07/20/21 17:59 Last Infusion: 07/15/21 14:06 Dose: Infused Documented by: Insulin Aspart (Insulin Aspart 100 Units/Ml 3 Ml Pen) 0 units SC ACHS [facility] Stop: 08/04/21 07:29 Last Admin: 07/15/21 17:52 Dose: 8 units Documented by: Insulin Glargine (Insulin Glargine Solostar 100 Units/Ml 3 Ml Pen) 50 units SC HS [facility] Stop: 08/04/21 20:59 Last Admin: 07/14/21 21:16 Dose: 50 units Documented by: Isosorbide Mononitrate (Isosorbide [place] Extended Rel 30 Mg Tabcr) 30 mg PO DAILY [facility] Stop: 08/04/21 08:59 Last Admin: 07/15/21 08:59 Dose: 30 mg Documented by: Lactobacillus Acidoph/Casei/Rhamnos (Advanced Probiotic 1250 Mg Capsule) 2 cap PO TID [facility] Stop: 08/04/21 08:59 Last Admin: 07/15/21 13:27 Dose: 2 cap Documented by: Lorazepam (Lorazepam 0.5 Mg Tab) 0.5 mg PO Q8 PRN PRN Reason: Anxiety Stop: 08/04/21 06:04 Last Admin: 07/15/21 09:11 Dose: 0.5 mg Documented by: Melatonin (Melatonin 3 Mg Tab) 9 mg PO HS PRN PRN Reason: Sleep Stop: 08/05/21 23:06 Last Admin: 07/14/21 21:09 Dose: 9 mg Documented by: Methenamine Hippurate (Methenamine Hippurate 1 Gm Tab) 1 gm PO DAILY [facility] Stop: 08/04/21 08:59 Last Admin: 07/12/21 08:31 Dose: 1 gm Documented by: Metoprolol Succinate (Metoprolol Succ 25mg Ext Rel Tab) 75 mg PO BID [facility] Stop: 08/04/21 08:59 Last Admin: 07/15/21 09:00 Dose: 75 mg Documented by: Miscellaneous (Remove Nicoderm Patch) 1 ea N/A DAILY@0859 [facility] Stop: 08/04/21 08:58 Last Admin: 07/15/21 08:52 Dose: 1 ea Documented by: Nicotine (Nicotine 21 Mg/24 Hr Tdsy) 21 mg TD DAILY [facility] Stop: 08/04/21 08:59 Last Admin: 07/15/21 09:00 Dose: 21 mg Documented by: Nitroglycerin (Nitroglycerin Sl 0.4 Mg/Tab Tab) 0.4 mg SL UD PRN PRN Reason: Chest Pain Stop: 08/04/21 06:04 Nystatin (Nystatin Powder 15gm Btl) 1 appln EXT TID PRN PRN Reason: Skin Irritation Stop: 08/04/21 06:04 Ondansetron HCl (Ondansetron Inj 2 Mg/Ml 2 Ml Vial) 4 mg IV Q6H PRN PRN Reason: Nausea Stop: 08/04/21 06:04 Ondansetron HCl (Ondansetron 4 Mg Od Tab) 4 mg PO Q8 PRN PRN Reason: Nausea And Vomiting Stop: 08/04/21 07:09 Pantoprazole Sodium (Pantoprazole 40 Mg Tab) 40 mg PO DAILYBB [facility] Stop: 08/04/21 07:29 Last Admin: 07/15/21 05:47 Dose: 40 mg Documented by: Phenazopyridine HCl (Phenazopyridine Hcl 100 Mg Tab) 100 mg PO TID PRN PRN Reason: Dysuria Stop: 08/09/21 11:05 Last Admin: 07/14/21 14:11 Dose: 100 mg Documented by: Polyethylene Glycol (Polyethylene (Miralax) 17 Gm Pack) 17 gm PO DAILY PRN PRN Reason: Constipation Stop: 08/04/21 06:04 Polyethylene Glycol (Polyethylene (Miralax) 17 Gm Pack) 17 gm PO QAM [facility] Stop: 08/04/21 08:59 Last Admin: 07/15/21 09:01 Dose: 17 gm Documented by: Potassium Chloride (Potassium Chloride Crtab 20 Meq Tabcr) 20 meq PO BID [facility] Stop: 08/04/21 08:59 Last Admin: 07/15/21 09:01 Dose: 20 meq Documented by: Sennosides (Senna 8.6 Mg Tab) 8.6 mg PO DAILY PRN PRN Reason: Constipation Stop: 08/04/21 06:04 Last Admin: 07/14/21 08:45 Dose: 8.6 mg Documented by: Spironolactone (Spironolactone 25 Mg Tab) 25 mg PO QAM [facility] Stop: 08/04/21 08:59 Last Admin: 07/15/21 09:02 Dose: 25 mg Documented by: Tamsulosin HCl (Tamsulosin Hcl 0.4 Mg Cap) 0.4 mg PO QAM [facility] Stop: 08/04/21 08:59 Last Admin: 07/15/21 09:03 Dose: 0.4 mg Documented by: Tramadol HCl (Tramadol Hcl 50 Mg Tablet) 100 mg PO Q6 PRN PRN Reason: Pain Stop: 08/04/21 06:04 Last Admin: 07/15/21 13:41 Dose: 100 mg Documented by: Umeclidinium [place] (Umeclidinium [place] 62.5mcg/Blister 7 Puffs/Inhaler) 1 puffs INH QAM [facility] Stop: 08/04/21 08:59 Last Admin: 07/15/21 09:03 Dose: 1 puffs Documented by: Warfarin Sodium (Warfarin Sod 7.5 Mg Tab) 7.5 mg PO DAILY@1600 [facility] Stop: 08/12/21 15:59 Last Admin: 07/15/21 16:01 Dose: 7.5 mg Documented by: (1) Urinary tract infection associated with catheterization of urinary tract Encounter type: initial encounter Indwelling urinary catheter type: indwelling urethral catheter Qualified Code(s): T83.511A - Infection and inflammatory reaction due to indwelling urethral catheter, initial encounter; N39.0 - Urinary tract infection, site not specified (2) HTN (hypertension) Hypertension type: essential hypertension Qualified Code(s): I10 - Essential (primary) hypertension
[2021-07-15] MEDS: MELATONIN 3 MG TAB PO PRN (22:43)
[2021-07-15] MEDS: INSULIN GLARGINE SOLOSTAR 100 UNITS/ML 3 ML PEN SC SCH (22:47)
[2021-07-16] MEDS: AMPICILLIN 2,000 MG in SODIUM CHLOR 0.9% AD-VAN 100 ML IV SCH ×2 (00:54→08:10)
[2021-07-16] MEDS: traMADol HCL 50 MG TABLET PO PRN ×4 (01:47→21:26)
[2021-07-16] MEDS: PANTOprazole 40 MG TAB PO SCH (05:33)
[2021-07-16 06:06] LABS: INR 1.2 (0.9-1.1); Prothrombin Time 11.9 Seconds (9.0-12.0)
[2021-07-16] MEDS: DOCUSATE SODIUM 100 MG CAP PO SCH ×2 (08:09→20:24)
[2021-07-16] MEDS: FINASTERIDE 5 MG TAB PO SCH (08:09)
[2021-07-16] MEDS: buprenorphine HCL 8 MG SUBL SL SCH ×3 (08:09→20:39)
[2021-07-16] MEDS: FUROSEMIDE 40 MG TAB PO SCH ×2 (08:10→17:28)
[2021-07-16] MEDS: NICOTINE 21 MG/24 HR TDSY TD SCH (08:10)
[2021-07-16] MEDS: SPIRONOLACTONE 25 MG TAB PO SCH (08:10)
[2021-07-16] MEDS: POLYETHYLENE (MIRALAX) 17 GM PACK PO SCH (08:10)
[2021-07-16] MEDS: DULoxetine HCL 60 MG CAP PO SCH (08:10)
[2021-07-16] MEDS: TAMSULOSIN HCL 0.4 MG CAP PO SCH (08:10)
[2021-07-16] MEDS: ASPIRIN 81 MG ECTAB PO SCH (08:11)
[2021-07-16] MEDS: ISOSORBIDE MONO EXTENDED REL 30 MG TABCR PO SCH (08:11)
[2021-07-16] MEDS: LORazepam 0.5 MG TAB PO PRN ×2 (08:11→20:24)
[2021-07-16] MEDS: FLUTICASONE PROPIONATE NA SPR 16 GM BTL SCH (08:11)
[2021-07-16] MEDS: ENOXAPARIN INJ 40 MG/0.4 ML SYR SQ SCH ×2 (08:11→20:47)
[2021-07-16] MEDS: METOPROLOL SUCC 25MG EXT REL TAB PO SCH ×2 (08:11→20:24)
[2021-07-16] MEDS: GABAPENTIN 800 MG TAB PO SCH ×3 (08:11→20:25)
[2021-07-16] MEDS: FOLIC ACID 1 MG TAB PO SCH (08:12)
[2021-07-16] MEDS: FAMOTIDINE 20 MG TAB PO SCH (08:12)
[2021-07-16] MEDS: POTASSIUM CHLORIDE CRTAB 20 MEQ TABCR PO SCH ×2 (08:12→20:24)
[2021-07-16] MEDS: FLUTICASONE/VILANTEROL 100/25MCG 14 PUFFS/INHALER INH SCH (08:12)
[2021-07-16] MEDS: UMECLIDINIUM BROMIDE 62.5MCG/BLISTER 7 PUFFS/INHALER INH SCH (08:12)
[2021-07-16] MEDS: ADVANCED PROBIOTIC 1250 MG CAPSULE PO SCH ×3 (08:13→20:25)
[2021-07-16] MEDS: INSULIN ASPART 100 UNITS/ML 3 ML PEN SC SCH ×4 (08:55→20:42)
[2021-07-16] MEDS: ATORVASTATIN 40 MG TAB PO SCH (13:07)
--- NOTE | 2021-07-16 17:28 | Hospitalist Progress Note ---
Date of Service July 16, 2021 Assessment & Plan (1) Acute on chronic diastolic heart failure: Plan: Presented with about 20 pounds weight gain in a few days with associated shortness of breath and increasing leg swelling Noted to have chest x-ray evidence of CHF Repeat CXR Cardiomegaly without evidence of pulmonary edema. Diuresing well-cumulative balance is [phone] as of 07/14/2021 Needs follow-up with cardiology upon discharge Volume Status improved IV Lasix transitioned to PO Lasix changed back to IV for better diuresis as he has been complaining of more wheezing and bloated (2) Chronic pain disorder: Plan: Has been on Ultram He has been on 100 mg Ultram every 6 hourly as needed He cyclobenzaprine has been discontinued because of severe interaction Continue current meds Has been complaining of increasing pain in in the knees, ankles and back We will consult pain therapist for further guidance on pain medications (3) COPD exacerbation: Plan: Chronic respiratory failure with hypoxia--uses 4 L at bedtime and intermittently H/O COPD and may have mild exacerbation Continue with nebulized bronchodilator and inhalers Minimal wheezing on examination but no shortness of breath Minimal wheezing may be secondary to COPD (4) Obesity hypoventilation syndrome: Plan: BMI 60 (5) Urinary tract infection associated with catheterization of urinary tract: Plan: H/O Indwelling Lloyd catheter with recurrent urinary tract infection UTI:POA Likely secondary to chronic Lloyd catheter Urine culture growing , Enterococcus faecalis, nonfermenter species Changed Lloyd catheter Continue Zosyn >> Transition to Levaquin, ampicillin on 07/10 Unasyn and Bactrim have been discontinued Will get repeat UA examination and culture to make sure there is no infection (6) DM type 2 (diabetes mellitus, type 2): Plan: We will continue with his usual insulin at home SSI (7) Anticoagulated on Coumadin: Plan: H/O PE and DVT INR Subtherapeutic Continue Coumadin Monitor INR:1.2 on 07/14/2021 Increase Coumadin to 7.5mg today Lovenox SQ until INR is therapeutic We will check INR tomorrow again (8) HTN (hypertension): Plan: Blood pressure is stable Continue current medications Plan: BPH Continue current medicine DVT Px: Coumadin Lovenox SQ till INR therapeutic CODE STATUS Full Code Admission and Anticipated Discharge Date Admission Date: July 05, 2021 Subjective 07/14/2021 The patient was seen and examined in medical telemetry unit He has been waiting to be placed Complains to have some wheezing especially when ambulate Remains weak and lethargic July 15, 2021 The patient was seen and examined in medical floor He remained stable but complains more pain in the knees and asking for pain medication 07/16/2021 The patient was seen and examined in medical floor He complains of more pain in both the knees, ankle and at the back He cannot participate in physical therapy without adequate pain medications Has wheezing but denies any shortness of breath at rest No fever and no chills Review of Systems Review of Systems: All systems reviewed and are unremarkable except as noted below Physical Exam Physical Exam: Lying in the bed with minimal wheezing and shortness of breath Constitutional: well developed, well nourished and + morbidly obese; not ill appearing Eyes: PERRL, conjunctivae normal, anicteric sclerae ENMT: external ear and nose normal, oropharynx normal Neck: trachea midline, no thyromegaly Respiratory: + respiratory distress (Minimal distress at rest), + cough and + audible wheezes Auscultation: + diminished lung sounds, + crackles (Minimal crackles at the bases) and + wheezes (Mild wheezing all over-improves with cough) Cardiovascular: Rate/Rhythm: regular rate and regular rhythm; not tachycardic Heart Sounds: normal S1 and normal S2; no murmur Extremities: + edema (1+ edema bilaterally with chronic skin changes) Gastrointestinal (Abdomen): Inspection/Auscultation: + abdomen distended and normal bowel sounds Percussion/Palpation: abdomen soft; abdomen nontender Musculoskeletal: No joint is acutely inflamed but has pain with movement of the both knee joint and ankle Skin: Chronic skin changes involving the legs Neurologic: Alert, 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. Generally weak. No focal neurological deficit Lymphatic: no cervical or axillary lymphadenopathy Results & Data Results & Data ([facility]) Vital Signs (Past 12 Hours) Vital Signs Temp Pulse Resp BP Pulse Ox 07/16/21 14:30 36.6 C 69 16 126/69 95 07/16/21 07:55 36.4 C L 59 L 16 142/81 H 98 Medications Administered Current Inpatient Medications Acetaminophen (Acetaminophen 325 Mg Tab) 650 mg PO Q4H PRN PRN Reason: Pain or Fever Stop: 08/04/21 06:04 Albuterol (Albuterol Hfa 8 Gm Inhaler) 2 puffs INH Q4 PRN PRN Reason: Dyspnea Stop: 08/04/21 06:04 Last Admin: 07/15/21 19:32 Dose: 2 puffs Documented by: Albuterol (Albut/Ipratrop 3mg/0.5mg Neb 3 Ml Vial) 3 ml INH Q6H PRN PRN Reason: Shortness Of Breath Or Wheezing Stop: 08/04/21 06:04 Aspirin (Aspirin 81 Mg Ectab) 81 mg PO QAM [facility] Stop: 08/04/21 08:59 Last Admin: 07/16/21 08:11 Dose: 81 mg Documented by: Atorvastatin Calcium (Atorvastatin 40 Mg Tab) 80 mg PO QDL [facility] Stop: 08/04/21 11:29 Last Admin: 07/16/21 13:07 Dose: 80 mg Documented by: Buprenorphine HCl (Buprenorphine Hcl 8 Mg Subl) 8 mg SL TID [facility] Stop: 08/04/21 08:59 Last Admin: 07/16/21 13:07 Dose: 8 mg Documented by: Cyclobenzaprine HCl (Cyclobenzaprine Hcl 10 Mg Tab) 10 mg PO BID PRN PRN Reason: Muscle Spasm Stop: 08/04/21 06:04 Last Admin: 07/06/21 09:02 Dose: 10 mg Documented by: Diclofenac Sodium (Diclofenac Sod 1% Gel 100 Gm Tube) 2 gm EXT QID PRN PRN Reason: knee pain Stop: 08/12/21 08:59 Last Admin: 07/15/21 16:02 Dose: 2 gm Documented by: Docusate Sodium (Docusate Sodium 100 Mg Cap) 100 mg PO BID [facility] Stop: 08/04/21 08:59 Last Admin: 07/16/21 08:09 Dose: 100 mg Documented by: Duloxetine HCl (Duloxetine Hcl 60 Mg Cap) 60 mg PO DAILY [facility] Stop: 08/04/21 08:59 Last Admin: 07/16/21 08:10 Dose: 60 mg Documented by: Enoxaparin Sodium (Enoxaparin Inj 40 Mg/0.4 Ml Syr) 40 mg SQ Q12H [facility] Stop: 08/09/21 09:29 Last Admin: 07/16/21 08:11 Dose: 40 mg Documented by: Ergocalciferol (Ergocalciferol 50,000 Units 1250 Mcg Cap) 50,000 units PO Fr@0900 [facility] Stop: 08/10/21 08:59 Last Admin: 07/11/21 09:01 Dose: 50,000 units Documented by: Famotidine (Famotidine 20 Mg Tab) 20 mg PO DAILY [facility] Stop: 08/04/21 08:59 Last Admin: 07/16/21 08:12 Dose: 20 mg Documented by: Finasteride (Finasteride 5 Mg Tab) 5 mg PO QAM [facility] Stop: 08/04/21 08:59 Last Admin: 07/16/21 08:09 Dose: 5 mg Documented by: Fluticasone Propionate (Fluticasone Propionate Na Spr 16 Gm Btl) 2 sprays NA DAILY [facility] Stop: 08/04/21 08:59 Last Admin: 07/16/21 08:11 Dose: 2 sprays Documented by: Fluticasone/Vilanterol (Fluticasone/Vilanterol 100/25mcg 14 Puffs/Inhaler) 1 puffs INH DAILY [facility] Stop: 08/04/21 08:59 Last Admin: 07/16/21 08:12 Dose: 1 puffs Documented by: Folic Acid (Folic Acid 1 Mg Tab) 1 mg PO QAM [facility] Stop: 08/04/21 08:59 Last Admin: 07/16/21 08:12 Dose: 1 mg Documented by: Furosemide (Furosemide 40 Mg/4 Ml Vial) 40 mg IV BID [facility] Stop: 08/15/21 20:59 Gabapentin (Gabapentin 800 Mg Tab) 800 mg PO TID [facility] Stop: 08/04/21 08:59 Last Admin: 07/16/21 13:07 Dose: 800 mg Documented by: Guaifenesin/Dextromethorphan (Guaifenesin/Dextrom Syrup 200mg/20mg 10ml Udc) 10 ml PO Q6H PRN PRN Reason: Cough Stop: 08/07/21 16:40 Last Admin: 07/09/21 03:22 Dose: 10 ml Documented by: Insulin Aspart (Insulin Aspart 100 Units/Ml 3 Ml Pen) 0 units SC ACHS [facility] Stop: 08/04/21 07:29 Last Admin: 07/16/21 13:09 Dose: 11 units Documented by: Insulin Glargine (Insulin Glargine Solostar 100 Units/Ml 3 Ml Pen) 50 units SC HS [facility] Stop: 08/04/21 20:59 Last Admin: 07/15/21 22:47 Dose: 50 units Documented by: Isosorbide Mononitrate (Isosorbide [place] Extended Rel 30 Mg Tabcr) 30 mg PO DAILY [facility] Stop: 08/04/21 08:59 Last Admin: 07/16/21 08:11 Dose: 30 mg Documented by: Lactobacillus Acidoph/Casei/Rhamnos (Advanced Probiotic 1250 Mg Capsule) 2 cap PO TID [facility] Stop: 08/04/21 08:59 Last Admin: 07/16/21 13:07 Dose: 2 cap Documented by: Lorazepam (Lorazepam 0.5 Mg Tab) 0.5 mg PO Q8 PRN PRN Reason: Anxiety Stop: 08/04/21 06:04 Last Admin: 07/16/21 08:11 Dose: 0.5 mg Documented by: Melatonin (Melatonin 3 Mg Tab) 9 mg PO HS PRN PRN Reason: Sleep Stop: 08/05/21 23:06 Last Admin: 07/15/21 22:43 Dose: 9 mg Documented by: Methenamine Hippurate (Methenamine Hippurate 1 Gm Tab) 1 gm PO DAILY [facility] Stop: 08/04/21 08:59 Last Admin: 07/12/21 08:31 Dose: 1 gm Documented by: Metoprolol Succinate (Metoprolol Succ 25mg Ext Rel Tab) 75 mg PO BID [facility] Stop: 08/04/21 08:59 Last Admin: 07/16/21 08:11 Dose: 75 mg Documented by: Miscellaneous (Remove Nicoderm Patch) 1 ea N/A DAILY@0859 [facility] Stop: 08/04/21 08:58 Last Admin: 07/16/21 08:12 Dose: 1 ea Documented by: Nicotine (Nicotine 21 Mg/24 Hr Tdsy) 21 mg TD DAILY [facility] Stop: 08/04/21 08:59 Last Admin: 07/16/21 08:10 Dose: 21 mg Documented by: Nitroglycerin (Nitroglycerin Sl 0.4 Mg/Tab Tab) 0.4 mg SL UD PRN PRN Reason: Chest Pain Stop: 08/04/21 06:04 Nystatin (Nystatin Powder 15gm Btl) 1 appln EXT TID PRN PRN Reason: Skin Irritation Stop: 08/04/21 06:04 Ondansetron HCl (Ondansetron Inj 2 Mg/Ml 2 Ml Vial) 4 mg IV Q6H PRN PRN Reason: Nausea Stop: 08/04/21 06:04 Ondansetron HCl (Ondansetron 4 Mg Od Tab) 4 mg PO Q8 PRN PRN Reason: Nausea And Vomiting Stop: 08/04/21 07:09 Pantoprazole Sodium (Pantoprazole 40 Mg Tab) 40 mg PO DAILYBB [facility] Stop: 08/04/21 07:29 Last Admin: 07/16/21 05:33 Dose: 40 mg Documented by: Phenazopyridine HCl (Phenazopyridine Hcl 100 Mg Tab) 100 mg PO TID PRN PRN Reason: Dysuria Stop: 08/09/21 11:05 Last Admin: 07/14/21 14:11 Dose: 100 mg Documented by: Polyethylene Glycol (Polyethylene (Miralax) 17 Gm Pack) 17 gm PO DAILY PRN PRN Reason: Constipation Stop: 08/04/21 06:04 Polyethylene Glycol (Polyethylene (Miralax) 17 Gm Pack) 17 gm PO QAM [facility] Stop: 08/04/21 08:59 Last Admin: 07/16/21 08:10 Dose: 17 gm Documented by: Potassium Chloride (Potassium Chloride Crtab 20 Meq Tabcr) 20 meq PO BID [facility] Stop: 08/04/21 08:59 Last Admin: 07/16/21 08:12 Dose: 20 meq Documented by: Sennosides (Senna 8.6 Mg Tab) 8.6 mg PO DAILY PRN PRN Reason: Constipation Stop: 08/04/21 06:04 Last Admin: 07/14/21 08:45 Dose: 8.6 mg Documented by: Spironolactone (Spironolactone 25 Mg Tab) 25 mg PO QAM [facility] Stop: 08/04/21 08:59 Last Admin: 07/16/21 08:10 Dose: 25 mg Documented by: Tamsulosin HCl (Tamsulosin Hcl 0.4 Mg Cap) 0.4 mg PO QAM [facility] Stop: 08/04/21 08:59 Last Admin: 07/16/21 08:10 Dose: 0.4 mg Documented by: Tramadol HCl (Tramadol Hcl 50 Mg Tablet) 100 mg PO Q6 PRN PRN Reason: Pain Stop: 08/04/21 06:04 Last Admin: 07/16/21 14:49 Dose: 100 mg Documented by: Umeclidinium Colcord (Umeclidinium [place] 62.5mcg/Blister 7 Puffs/Inhaler) 1 puffs INH QAM [facility] Stop: 08/04/21 08:59 Last Admin: 07/16/21 08:12 Dose: 1 puffs Documented by: Warfarin Sodium (Warfarin Sod 7.5 Mg Tab) 7.5 mg PO DAILY@1600 [facility] Stop: 08/12/21 15:59 Last Admin: 07/15/21 16:01 Dose: 7.5 mg Documented by: (1) Urinary tract infection associated with catheterization of urinary tract Encounter type: initial encounter Indwelling urinary catheter type: indwelling urethral catheter Qualified Code(s): T83.511A - Infection and inflammatory reaction due to indwelling urethral catheter, initial encounter; N39.0 - Urinary tract infection, site not specified (2) HTN (hypertension) Hypertension type: essential hypertension Qualified Code(s): I10 - Essential (primary) hypertension
[2021-07-16] MEDS: WARFARIN SOD 7.5 MG TAB PO SCH (18:16)
[2021-07-16 18:35] LABS: Appearance Urine Clear (Clear); Bacteria Urine Automated Negative (Negative); Bilirubin Urine Negative (Negative); Blood Urine 2+ (Negative); Cast Urine Automated 0 /lpf (0-5); Color Urine Yellow; Glucose Urine UA Negative (Negative); Ketones Urine Negative (Negative); Leukocyte Esterase Urine Negative (Negative); Nitrite Urine Negative (Negative); Protein Urine Negative (Negative); Specific Gravity Urine 1.015 (1.000-1.030); Urobilinogen Urine Negative (Negative)
[2021-07-16] MEDS: FUROSEMIDE 40 MG/4 ML VIAL IV SCH (20:24)
[2021-07-16] MEDS: MELATONIN 3 MG TAB PO PRN (20:24)
[2021-07-16] MEDS: INSULIN GLARGINE SOLOSTAR 100 UNITS/ML 3 ML PEN SC SCH (20:43)
[2021-07-16] MEDS: DICLOFENAC SOD 1% GEL 100 GM TUBE EXT PRN (20:47)
[2021-07-17] MEDS: PANTOprazole 40 MG TAB PO SCH (05:46)
[2021-07-17 06:08] LABS: Basophils # (auto) 0.07 K/uL (0-0.2); Basophils % (auto) 0.6 %; Eosinophils # (auto) 0.61 K/uL (0-0.5); Eosinophils % (auto) 4.9 %; Hematocrit (blood only) 40.2 % (42-52); Hemoglobin 12.6 g/dL (14.0-18.0); Immature Granulocytes # (auto) 0.05 K/uL (0.00-0.02); Immature Granulocytes % (auto) 0.4 %; Lymphocytes # (auto) 3.19 K/uL (1.2-3.4); Lymphocytes % (auto) 25.8 %; Mean Corpuscular Hemoglobin 26.3 pg (25-34); Mean Corpuscular Hgb Conc 31.3 g/dL (32-36); Mean Corpuscular Volume 83.9 fL (80-100); Monocytes # (auto) 0.98 K/uL (0.11-0.59); Monocytes % (auto) 7.9 %; Neutrophils # (auto) 7.47 K/uL (1.4-6.5); Neutrophils % (auto) 60.4 %; Platelet Count 238 K/uL (130-400); RDW Standard Deviation 52.2 fL (36.4-46.3); Red Blood Count 4.79 M/uL (4.7-6.1); White Blood Count 12.37 K/uL (4.8-10.8)
[2021-07-17 06:15] LABS: INR 1.2 (0.9-1.1); Prothrombin Time 11.8 Seconds (9.0-12.0)
[2021-07-17 06:39] LABS: BUN Creatinine Ratio 15.4 (10-20); Calcium 9.3 mg/dl (8.5-10.1); Creatinine Clr Calc Pharmacy 141.8 ml/min; Est GFR (African American) 87.7 ml/min; Est GFR (Non-African American) 75.7 ml/min; Magnesium 2.1 mg/dl (1.8-2.4); Potassium 4.1 mmol/L (3.5-5.1)
--- NOTE | 2021-07-17 06:42 | Ultrasound Report ---
US venous doppler LE LT HISTORY: 51 years-old Male LE pain acute pain and swelling of the left lower extremity COMPARISON: None TECHNIQUE: Multiple real-time sonographic images of the left lower extremity deep venous structures w ere obtained assessing grayscale appearance, color and spectral flow FINDINGS: Normal flow, compressibility, phasicity and augmentation. Limited visualization of the calf veins sec ondary to patient body habitus. IMPRESSION: No sonographic evidence of deep venous thrombosis. ACT 112: Negative or not required by law. The above report was generated using voice recognition software. It may contain grammatical, syntax o r spelling errors. Electronically signed by: Shelton Apodaca M.D. 07/17/2021 6:41 AM
[2021-07-17] MEDS: ASPIRIN 81 MG ECTAB PO SCH (09:14)
[2021-07-17] MEDS: FOLIC ACID 1 MG TAB PO SCH (09:14)
[2021-07-17] MEDS: DULoxetine HCL 60 MG CAP PO SCH (09:14)
[2021-07-17] MEDS: FINASTERIDE 5 MG TAB PO SCH (09:14)
[2021-07-17] MEDS: ADVANCED PROBIOTIC 1250 MG CAPSULE PO SCH ×3 (09:15→20:33)
[2021-07-17] MEDS: GABAPENTIN 800 MG TAB PO SCH ×3 (09:15→20:34)
[2021-07-17] MEDS: ISOSORBIDE MONO EXTENDED REL 30 MG TABCR PO SCH (09:15)
[2021-07-17] MEDS: ENOXAPARIN INJ 40 MG/0.4 ML SYR SQ SCH ×2 (09:16→20:45)
[2021-07-17] MEDS: NICOTINE 21 MG/24 HR TDSY TD SCH (09:16)
[2021-07-17] MEDS: METOPROLOL SUCC 25MG EXT REL TAB PO SCH ×2 (09:16→20:34)
[2021-07-17] MEDS: FLUTICASONE/VILANTEROL 100/25MCG 14 PUFFS/INHALER INH SCH (09:17)
[2021-07-17] MEDS: TAMSULOSIN HCL 0.4 MG CAP PO SCH (09:17)
[2021-07-17] MEDS: FLUTICASONE PROPIONATE NA SPR 16 GM BTL SCH (09:17)
[2021-07-17] MEDS: UMECLIDINIUM BROMIDE 62.5MCG/BLISTER 7 PUFFS/INHALER INH SCH (09:17)
[2021-07-17] MEDS: SPIRONOLACTONE 25 MG TAB PO SCH (09:18)
[2021-07-17] MEDS: DOCUSATE SODIUM 100 MG CAP PO SCH ×2 (09:31→20:38)
[2021-07-17] MEDS: POTASSIUM CHLORIDE CRTAB 20 MEQ TABCR PO SCH ×2 (09:31→20:38)
[2021-07-17] MEDS: FUROSEMIDE 40 MG/4 ML VIAL IV SCH ×2 (09:31→20:38)
[2021-07-17] MEDS: FAMOTIDINE 20 MG TAB PO SCH (09:31)
[2021-07-17] MEDS: POLYETHYLENE (MIRALAX) 17 GM PACK PO SCH (09:31)
[2021-07-17] MEDS: buprenorphine HCL 8 MG SUBL SL SCH ×3 (09:31→20:32)
[2021-07-17] MEDS: LORazepam 0.5 MG TAB PO PRN ×2 (09:31→20:32)
[2021-07-17] MEDS: INSULIN ASPART 100 UNITS/ML 3 ML PEN SC SCH ×4 (09:32→20:44)
[2021-07-17] MEDS: traMADol HCL 50 MG TABLET PO PRN ×3 (09:53→21:51)
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
--- NOTE | 2021-07-17 10:51 | Hospitalist Progress Note ---
Date of Service July 17, 2021 Assessment & Plan (1) Acute on chronic diastolic heart failure: Plan: Presented with about 20 pounds weight gain in a few days with associated shortness of breath and increasing leg swelling Noted to have chest x-ray evidence of CHF Repeat CXR Cardiomegaly without evidence of pulmonary edema. Diuresing well-cumulative balance is [phone] as of 07/14/2021 Needs follow-up with cardiology upon discharge Volume Status improved IV Lasix transitioned to PO Lasix changed back to IV for better diuresis as he has been complaining of more wheezing and bloated Cumulative fluid losses 50 L since admission (2) Chronic pain disorder: Plan: Has been on Ultram He has been on 100 mg Ultram every 6 hourly as needed He cyclobenzaprine has been discontinued because of severe interaction Continue current meds Has been complaining of increasing pain in in the knees, ankles and back We will consult pain therapist for further guidance on pain medications Asking for more pain medications (3) COPD exacerbation: Plan: Chronic respiratory failure with hypoxia--uses 4 L at bedtime and intermittently H/O COPD and may have mild exacerbation Continue with nebulized bronchodilator and inhalers Minimal wheezing on examination but no shortness of breath Minimal wheezing may be secondary to COPD Has minimal wheezing but does not require any further treatment for that (4) Obesity hypoventilation syndrome: Plan: BMI 60 (5) Urinary tract infection associated with catheterization of urinary tract: Plan: H/O Indwelling Lloyd catheter with recurrent urinary tract infection UTI:POA Likely secondary to chronic Lloyd catheter Urine culture growing , Enterococcus faecalis, nonfermenter species Changed Lloyd catheter Continue Zosyn >> Transition to Levaquin, ampicillin on 07/10 Unasyn and Bactrim have been discontinued Will get repeat UA examination and culture to make sure there is no infection (6) DM type 2 (diabetes mellitus, type 2): Plan: We will continue with his usual insulin at home SSI (7) Anticoagulated on Coumadin: Plan: H/O PE and DVT INR Subtherapeutic Continue Coumadin Monitor INR:1.2 on 07/14/2021 Increase Coumadin to 7.5mg today Lovenox SQ until INR is therapeutic We will check INR tomorrow again-1.2 on 07/17/2021 (8) HTN (hypertension): Plan: Blood pressure is stable Continue current medications Plan: BPH Continue current medicine DVT Px: Coumadin Lovenox SQ till INR therapeutic CODE STATUS Full Code Admission and Anticipated Discharge Date Admission Date: July 05, 2021 Subjective 07/14/2021 The patient was seen and examined in medical telemetry unit He has been waiting to be placed Complains to have some wheezing especially when ambulate Remains weak and lethargic July 15, 2021 The patient was seen and examined in medical floor He remained stable but complains more pain in the knees and asking for pain medication 07/16/2021 The patient was seen and examined in medical floor He complains of more pain in both the knees, ankle and at the back He cannot participate in physical therapy without adequate pain medications Has wheezing but denies any shortness of breath at rest No fever and no chills 07/17/2021 The patient was seen and examined in medical floor He complains to have increasing pain in the knees ankles and back He also has problem with his inhalers and believes that the device is being used for other patients too Still has minimal wheezing Review of Systems Review of Systems: All systems reviewed and are unremarkable except as noted below Musculoskeletal: Ongoing pain in the leg and back. Physical Exam Physical Exam: Lying in the bed with minimal wheezing and shortness of breath Constitutional: well developed, well nourished and + morbidly obese; not ill appearing Eyes: PERRL, conjunctivae normal, anicteric sclerae ENMT: external ear and nose normal, oropharynx normal Neck: trachea midline, no thyromegaly Respiratory: + respiratory distress (Minimal distress at rest), + cough and + audible wheezes Auscultation: + diminished lung sounds, + crackles (Minimal crackles at the bases) and + wheezes (Mild wheezing all over-improves with cough) Cardiovascular: Rate/Rhythm: regular rate and regular rhythm; not tachycardic Heart Sounds: normal S1 and normal S2; no murmur Extremities: + edema (1+ edema bilaterally with chronic skin changes) Gastrointestinal (Abdomen): Inspection/Auscultation: + abdomen distended and normal bowel sounds Percussion/Palpation: abdomen soft; abdomen nontender Musculoskeletal: Pain in the knees and ankle with activity. Back pain at rest without radiation Neurologic: Alert, 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. Moving all limbs Lymphatic: no cervical or axillary lymphadenopathy Results & Data Results & Data ([facility]) Vital Signs (Past 12 Hours) Vital Signs Temp Pulse Pulse Resp BP Pulse Ox 07/17/21 07:18 36.6 C 58 L 16 146/78 H 100 07/16/21 23:54 36.7 C 67 22 156/83 H 99 Laboratory Results Short CBC 07/17/21 Range/Units 05:38 WBC 12.37 H (4.8-10.8) K/uL Hgb 12.6 L (14.0-18.0) g/dL Hct 40.2 L (42-52) % Plt Count 238 (130-400) K/uL BMP 07/17/21 05:38 Sodium 139 Potassium 4.1 Chloride 103 Carbon Dioxide 32 BUN 17 Creatinine 1.12 Glucose 114 H Calcium 9.3 Urine 07/16/21 Range/Units 18:27 Urine Color Yellow Urine Appearance Clear (Clear) Urine pH 7.0 (4.5-7.5) Ur Specific [place] 1.015 (1.000-1.030) Urine Protein Negative (Negative) Urine Glucose (UA) Negative (Negative) Medications Administered Current Inpatient Medications Acetaminophen (Acetaminophen 325 Mg Tab) 650 mg PO Q4H PRN PRN Reason: Pain or Fever Stop: 08/04/21 06:04 Albuterol (Albuterol Hfa 8 Gm Inhaler) 2 puffs INH Q4 PRN PRN Reason: Dyspnea Stop: 08/04/21 06:04 Last Admin: 07/15/21 19:32 Dose: 2 puffs Documented by: Albuterol (Albut/Ipratrop 3mg/0.5mg Neb 3 Ml Vial) 3 ml INH Q6H PRN PRN Reason: Shortness Of Breath Or Wheezing Stop: 08/04/21 06:04 Aspirin (Aspirin 81 Mg Ectab) 81 mg PO QAM [facility] Stop: 08/04/21 08:59 Last Admin: 07/17/21 09:14 Dose: 81 mg Documented by: Atorvastatin Calcium (Atorvastatin 40 Mg Tab) 80 mg PO QDL [facility] Stop: 08/04/21 11:29 Last Admin: 07/16/21 13:07 Dose: 80 mg Documented by: Buprenorphine HCl (Buprenorphine Hcl 8 Mg Subl) 8 mg SL TID [facility] Stop: 08/04/21 08:59 Last Admin: 07/17/21 09:31 Dose: 8 mg Documented by: Cyclobenzaprine HCl (Cyclobenzaprine Hcl 10 Mg Tab) 10 mg PO BID PRN PRN Reason: Muscle Spasm Stop: 08/04/21 06:04 Last Admin: 07/06/21 09:02 Dose: 10 mg Documented by: Diclofenac Sodium (Diclofenac Sod 1% Gel 100 Gm Tube) 2 gm EXT QID PRN PRN Reason: knee pain Stop: 08/12/21 08:59 Last Admin: 07/16/21 20:47 Dose: 2 gm Documented by: Docusate Sodium (Docusate Sodium 100 Mg Cap) 100 mg PO BID [facility] Stop: 08/04/21 08:59 Last Admin: 07/17/21 09:31 Dose: 100 mg Documented by: Duloxetine HCl (Duloxetine Hcl 60 Mg Cap) 60 mg PO DAILY [facility] Stop: 08/04/21 08:59 Last Admin: 07/17/21 09:14 Dose: 60 mg Documented by: Enoxaparin Sodium (Enoxaparin Inj 40 Mg/0.4 Ml Syr) 40 mg SQ Q12H [facility] Stop: 08/09/21 09:29 Last Admin: 07/17/21 09:16 Dose: 40 mg Documented by: Ergocalciferol (Ergocalciferol 50,000 Units 1250 Mcg Cap) 50,000 units PO Fr@0900 [facility] Stop: 08/10/21 08:59 Last Admin: 07/11/21 09:01 Dose: 50,000 units Documented by: Famotidine (Famotidine 20 Mg Tab) 20 mg PO DAILY [facility] Stop: 08/04/21 08:59 Last Admin: 07/17/21 09:31 Dose: 20 mg Documented by: Finasteride (Finasteride 5 Mg Tab) 5 mg PO QAM [facility] Stop: 08/04/21 08:59 Last Admin: 07/17/21 09:14 Dose: 5 mg Documented by: Fluticasone Propionate (Fluticasone Propionate Na Spr 16 Gm Btl) 2 sprays NA DAILY [facility] Stop: 08/04/21 08:59 Last Admin: 07/17/21 09:17 Dose: 2 sprays Documented by: Fluticasone/Vilanterol (Fluticasone/Vilanterol 100/25mcg 14 Puffs/Inhaler) 1 puffs INH DAILY [facility] Stop: 08/04/21 08:59 Last Admin: 07/17/21 09:17 Dose: 1 puffs Documented by: Folic Acid (Folic Acid 1 Mg Tab) 1 mg PO QAM [facility] Stop: 08/04/21 08:59 Last Admin: 07/17/21 09:14 Dose: 1 mg Documented by: Furosemide (Furosemide 40 Mg/4 Ml Vial) 40 mg IV BID [facility] Stop: 08/15/21 20:59 Last Admin: 07/17/21 09:31 Dose: 40 mg Documented by: Gabapentin (Gabapentin 800 Mg Tab) 800 mg PO TID [facility] Stop: 08/04/21 08:59 Last Admin: 07/17/21 09:15 Dose: 800 mg Documented by: Guaifenesin/Dextromethorphan (Guaifenesin/Dextrom Syrup 200mg/20mg 10ml Udc) 10 ml PO Q6H PRN PRN Reason: Cough Stop: 08/07/21 16:40 Last Admin: 07/09/21 03:22 Dose: 10 ml Documented by: Insulin Aspart (Insulin Aspart 100 Units/Ml 3 Ml Pen) 0 units SC ACHS [facility] Stop: 08/04/21 07:29 Last Admin: 07/17/21 09:32 Dose: 9 units Documented by: Insulin Glargine (Insulin Glargine Solostar 100 Units/Ml 3 Ml Pen) 50 units SC HS [facility] Stop: 08/04/21 20:59 Last Admin: 07/16/21 20:43 Dose: 50 units Documented by: Isosorbide Mononitrate (Isosorbide [place] Extended Rel 30 Mg Tabcr) 30 mg PO DAILY [facility] Stop: 08/04/21 08:59 Last Admin: 07/17/21 09:15 Dose: 30 mg Documented by: Lactobacillus Acidoph/Casei/Rhamnos (Advanced Probiotic 1250 Mg Capsule) 2 cap PO TID [facility] Stop: 08/04/21 08:59 Last Admin: 07/17/21 09:15 Dose: 2 cap Documented by: Lorazepam (Lorazepam 0.5 Mg Tab) 0.5 mg PO Q8 PRN PRN Reason: Anxiety Stop: 08/04/21 06:04 Last Admin: 07/17/21 09:31 Dose: 0.5 mg Documented by: Melatonin (Melatonin 3 Mg Tab) 9 mg PO HS PRN PRN Reason: Sleep Stop: 08/05/21 23:06 Last Admin: 07/16/21 20:24 Dose: 9 mg Documented by: Methenamine Hippurate (Methenamine Hippurate 1 Gm Tab) 1 gm PO DAILY [facility] Stop: 08/04/21 08:59 Last Admin: 07/12/21 08:31 Dose: 1 gm Documented by: Metoprolol Succinate (Metoprolol Succ 25mg Ext Rel Tab) 75 mg PO BID [facility] Stop: 08/04/21 08:59 Last Admin: 07/17/21 09:16 Dose: Not Given Documented by: Miscellaneous (Remove Nicoderm Patch) 1 ea N/A DAILY@0859 [facility] Stop: 08/04/21 08:58 Last Admin: 07/17/21 09:14 Dose: 1 ea Documented by: Nicotine (Nicotine 21 Mg/24 Hr Tdsy) 21 mg TD DAILY [facility] Stop: 08/04/21 08:59 Last Admin: 07/17/21 09:16 Dose: 21 mg Documented by: Nitroglycerin (Nitroglycerin Sl 0.4 Mg/Tab Tab) 0.4 mg SL UD PRN PRN Reason: Chest Pain Stop: 08/04/21 06:04 Nystatin (Nystatin Powder 15gm Btl) 1 appln EXT TID PRN PRN Reason: Skin Irritation Stop: 08/04/21 06:04 Ondansetron HCl (Ondansetron Inj 2 Mg/Ml 2 Ml Vial) 4 mg IV Q6H PRN PRN Reason: Nausea Stop: 08/04/21 06:04 Ondansetron HCl (Ondansetron 4 Mg Od Tab) 4 mg PO Q8 PRN PRN Reason: Nausea And Vomiting Stop: 08/04/21 07:09 Pantoprazole Sodium (Pantoprazole 40 Mg Tab) [facility]: 08/04/21 07:29 Last Admin: 07/17/21 05:46 Dose: 40 mg Documented by: Phenazopyridine HCl (Phenazopyridine Hcl 100 Mg Tab) 100 mg PO TID PRN PRN Reason: Dysuria Stop: 08/09/21 11:05 Last Admin: 07/14/21 14:11 Dose: 100 mg Documented by: Polyethylene Glycol (Polyethylene (Miralax) 17 Gm Pack) 17 gm PO DAILY PRN PRN Reason: Constipation Stop: 08/04/21 06:04 Polyethylene Glycol (Polyethylene (Miralax) 17 Gm Pack) [facility] Stop: 08/04/21 08:59 Last Admin: 07/17/21 09:31 Dose: 17 gm Documented by: Potassium Chloride (Potassium Chloride Crtab 20 Meq Tabcr) 20 meq PO BID [facility] Stop: 08/04/21 08:59 Last Admin: 07/17/21 09:31 Dose: 20 meq Documented by: Sennosides (Senna 8.6 Mg Tab) 8.6 mg PO DAILY PRN PRN Reason: Constipation Stop: 08/04/21 06:04 Last Admin: 07/14/21 08:45 Dose: 8.6 mg Documented by: Spironolactone (Spironolactone 25 Mg Tab) 25 mg PO QAM [facility] Stop: 08/04/21 08:59 Last Admin: 07/17/21 09:18 Dose: 25 mg Documented by: Tamsulosin HCl (Tamsulosin Hcl 0.4 Mg Cap) 0.4 mg PO [facility] Stop: 08/04/21 08:59 Last Admin: 07/17/21 09:17 Dose: 0.4 mg Documented by: Tramadol HCl (Tramadol Hcl 50 Mg Tablet) 100 mg PO Q6 PRN PRN Reason: Pain Stop: 08/04/21 06:04 Last Admin: 07/17/21 09:53 Dose: 100 mg Documented by: Umeclidinium Sparks (Umeclidinium [place]ks 62.5mcg/Blister 7 Puffs/Inhaler) 1 puffs INH [facility] Stop: 08/04/21 08:59 Last Admin: 07/17/21 09:17 Dose: 1 puffs Documented by: Warfarin Sodium (Warfarin Sod 7.5 Mg Tab) 7.5 mg PO DAILY@1600 [facility] Stop: 08/12/21 15:59 Last Admin: 07/16/21 18:16 Dose: 7.5 mg Documented by: (1) Urinary tract infection associated with catheterization of urinary tract Encounter type: initial encounter Indwelling urinary catheter type: indwelling urethral catheter Qualified Code(s): T83.511A - Infection and inflammatory reaction due to indwelling urethral catheter, initial encounter; N39.0 - Urinary tract infection, site not specified (2) HTN (hypertension) Hypertension type: essential hypertension Qualified Code(s): I10 - Essential (primary) hypertension
[2021-07-17] MEDS: ATORVASTATIN 40 MG TAB PO SCH (12:29)
[2021-07-17] MEDS: WARFARIN SOD 7.5 MG TAB PO SCH (15:54)
[2021-07-17] MEDS: MELATONIN 3 MG TAB PO PRN (20:32)
[2021-07-17] MEDS: INSULIN GLARGINE SOLOSTAR 100 UNITS/ML 3 ML PEN SC SCH (20:45)
[2021-07-17] MEDS: DICLOFENAC SOD 1% GEL 100 GM TUBE EXT PRN (21:09)
[2021-07-18] MEDS: PANTOprazole 40 MG TAB PO SCH (04:38)
[2021-07-18] MEDS: traMADol HCL 50 MG TABLET PO PRN ×4 (04:38→21:47)
[2021-07-18] MEDS: NICOTINE 21 MG/24 HR TDSY TD SCH (09:26)
[2021-07-18] MEDS: DOCUSATE SODIUM 100 MG CAP PO SCH ×2 (09:28→21:35)
[2021-07-18] MEDS: POLYETHYLENE (MIRALAX) 17 GM PACK PO SCH (09:28)
[2021-07-18] MEDS: ASPIRIN 81 MG ECTAB PO SCH (09:30)
[2021-07-18] MEDS: TAMSULOSIN HCL 0.4 MG CAP PO SCH (09:31)
[2021-07-18] MEDS: ISOSORBIDE MONO EXTENDED REL 30 MG TABCR PO SCH (09:31)
[2021-07-18] MEDS: METOPROLOL SUCC 25MG EXT REL TAB PO SCH ×2 (09:31→21:13)
[2021-07-18] MEDS: FOLIC ACID 1 MG TAB PO SCH (09:31)
[2021-07-18] MEDS: SPIRONOLACTONE 25 MG TAB PO SCH (09:31)
[2021-07-18] MEDS: DULoxetine HCL 60 MG CAP PO SCH (09:31)
[2021-07-18] MEDS: FINASTERIDE 5 MG TAB PO SCH (09:31)
[2021-07-18] MEDS: GABAPENTIN 800 MG TAB PO SCH ×3 (09:31→21:12)
[2021-07-18] MEDS: ERGOCALCIFEROL 50,000 UNITS 1250 MCG CAP PO SCH (09:31)
[2021-07-18] MEDS: UMECLIDINIUM BROMIDE 62.5MCG/BLISTER 7 PUFFS/INHALER INH SCH (09:31)
[2021-07-18] MEDS: FLUTICASONE/VILANTEROL 100/25MCG 14 PUFFS/INHALER INH SCH (09:31)
[2021-07-18] MEDS: ADVANCED PROBIOTIC 1250 MG CAPSULE PO SCH ×3 (09:31→21:13)
[2021-07-18] MEDS: FLUTICASONE PROPIONATE NA SPR 16 GM BTL SCH (09:32)
[2021-07-18] MEDS: ENOXAPARIN INJ 40 MG/0.4 ML SYR SQ SCH ×2 (09:32→21:12)
[2021-07-18] MEDS: FUROSEMIDE 40 MG/4 ML VIAL IV SCH ×2 (09:41→21:35)
[2021-07-18] MEDS: POTASSIUM CHLORIDE CRTAB 20 MEQ TABCR PO SCH ×2 (09:42→21:35)
[2021-07-18] MEDS: LORazepam 0.5 MG TAB PO PRN ×2 (09:42→21:47)
[2021-07-18] MEDS: buprenorphine HCL 8 MG SUBL SL SCH ×3 (09:42→21:11)
[2021-07-18] MEDS: INSULIN ASPART 100 UNITS/ML 3 ML PEN SC SCH ×5 (09:42→23:36)
[2021-07-18] MEDS: FAMOTIDINE 20 MG TAB PO SCH (10:10)
[2021-07-18] MEDS: ATORVASTATIN 40 MG TAB PO SCH (12:22)
[2021-07-18] MEDS: WARFARIN SOD 7.5 MG TAB PO SCH (15:44)
--- NOTE | 2021-07-18 16:29 | Hospitalist Progress Note ---
Date of Service July 18, 2021 Assessment & Plan (1) Acute on chronic diastolic heart failure: Plan: Presented with about 20 pounds weight gain in a few days with associated shortness of breath and increasing leg swelling Noted to have chest x-ray evidence of CHF Repeat CXR Cardiomegaly without evidence of pulmonary edema. Diuresing well-cumulative balance is [phone] as of 07/14/2021 Needs follow-up with cardiology upon discharge Volume Status improved IV Lasix transitioned to PO Lasix changed back to IV for better diuresis as he has been complaining of more wheezing and bloated Cumulative fluid losses 50 L since admission No signs and/or symptoms of fluid overload (2) Chronic pain disorder: Plan: Has been on Ultram He has been on 100 mg Ultram every 6 hourly as needed He cyclobenzaprine has been discontinued because of severe interaction Continue current meds Has been complaining of increasing pain in in the knees, ankles and back We will consult pain therapist for further guidance on pain medications Appreciate pain therapy input and recommendation No narcotic pain medication as long as the patient is on Suboxone (3) COPD exacerbation: Plan: Chronic respiratory failure with hypoxia--uses 4 L at bedtime and intermittently H/O COPD and may have mild exacerbation Continue with nebulized bronchodilator and inhalers Minimal wheezing on examination but no shortness of breath Minimal wheezing may be secondary to COPD Has minimal wheezing but does not require any further treatment for that (4) Obesity hypoventilation syndrome: Plan: BMI 60 (5) Urinary tract infection associated with catheterization of urinary tract: Plan: H/O Indwelling Lloyd catheter with recurrent urinary tract infection UTI:POA Likely secondary to chronic Lloyd catheter Urine culture growing , Enterococcus faecalis, nonfermenter species Changed Lloyd catheter Continue Zosyn >> Transition to Levaquin, ampicillin on 07/10 Unasyn and Bactrim have been discontinued Will get repeat UA examination and culture to make sure there is no infection Repeat UA has been negative (6) DM type 2 (diabetes mellitus, type 2): Plan: We will continue with his usual insulin at home SSI (7) Anticoagulated on Coumadin: Plan: H/O PE and DVT INR Subtherapeutic Continue Coumadin Monitor INR:1.2 on 07/14/2021 Increase Coumadin to 7.5mg today Lovenox SQ until INR is therapeutic We will check INR tomorrow again-1.2 on 07/17/2021 Check INR tomorrow (8) HTN (hypertension): Plan: Blood pressure is stable Continue current medications Plan: BPH Continue current medicine DVT Px: Coumadin Lovenox SQ till INR therapeutic CODE STATUS Full Code Admission and Anticipated Discharge Date Admission Date: July 05, 2021 Subjective 07/14/2021 The patient was seen and examined in medical telemetry unit He has been waiting to be placed Complains to have some wheezing especially when ambulate Remains weak and lethargic July 15, 2021 The patient was seen and examined in medical floor He remained stable but complains more pain in the knees and asking for pain medication 07/16/2021 The patient was seen and examined in medical floor He complains of more pain in both the knees, ankle and at the back He cannot participate in physical therapy without adequate pain medications Has wheezing but denies any shortness of breath at rest No fever and no chills 07/17/2021 The patient was seen and examined in medical floor He complains to have increasing pain in the knees ankles and back He also has problem with his inhalers and believes that the device is being used for other patients too Still has minimal wheezing 07/18/2021 The patient was seen and examined in medical floor He has been stable but he still complains of pain in the knee joint and asking for as needed tramadol He was seen by pain therapist and is strongly advised not to give any more narcotic pain medications Review of Systems Review of Systems: All systems reviewed and are unremarkable except as noted below Musculoskeletal: Ongoing pain in the leg and back. Physical Exam Physical Exam: Lying in the bed with minimal wheezing and shortness of breath Constitutional: well developed, well nourished and + morbidly obese; not ill appearing Eyes: PERRL, conjunctivae normal, anicteric sclerae ENMT: external ear and nose normal, oropharynx normal Neck: trachea midline, no thyromegaly Respiratory: + respiratory distress (Minimal distress at rest), + cough and + audible wheezes Auscultation: + diminished lung sounds, + crackles (Minimal crackles at the bases) and + wheezes (Mild wheezing all over-improves with cough) Cardiovascular: Rate/Rhythm: regular rate and regular rhythm; not tachycardic Heart Sounds: normal S1 and normal S2; no murmur Extremities: + edema (1+ edema bilaterally with chronic skin changes) Gastrointestinal (Abdomen): Inspection/Auscultation: + abdomen distended and normal bowel sounds Percussion/Palpation: abdomen soft; abdomen nontender Musculoskeletal: Complains of pain in the left knee and ankle Neurologic: Alert, 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. No focal sensory and motor deficit appreciated Lymphatic: no cervical or axillary lymphadenopathy Results & Data Results & Data ([facility]) Vital Signs (Past 12 Hours) Vital Signs Temp Pulse Resp BP Pulse Ox 07/18/21 14:55 36.9 C 75 20 133/80 93 07/18/21 07:22 36.6 C 67 16 136/73 92 Medications Administered Current Inpatient Medications Acetaminophen (Acetaminophen 325 Mg Tab) 650 mg PO Q4H PRN PRN Reason: Pain or Fever Stop: 08/04/21 06:04 Albuterol (Albuterol Hfa 8 Gm Inhaler) 2 puffs INH Q4 PRN PRN Reason: Dyspnea Stop: 08/04/21 06:04 Last Admin: 07/15/21 19:32 Dose: 2 puffs Documented by: Albuterol (Albut/Ipratrop 3mg/0.5mg Neb 3 Ml Vial) 3 ml INH Q6H PRN PRN Reason: Shortness Of Breath Or Wheezing Stop: 08/04/21 06:04 Aspirin (Aspirin 81 Mg Ectab) 81 mg PO QAM [facility] Stop: 08/04/21 08:59 Last Admin: 07/18/21 09:30 Dose: 81 mg Documented by: Atorvastatin Calcium (Atorvastatin 40 Mg Tab) 80 mg PO QDL [facility] Stop: 08/04/21 11:29 Last Admin: 07/18/21 12:22 Dose: 80 mg Documented by: Buprenorphine HCl (Buprenorphine Hcl 8 Mg Subl) 8 mg SL TID [facility] Stop: 08/04/21 08:59 Last Admin: 07/18/21 15:08 Dose: 8 mg Documented by: Cyclobenzaprine HCl (Cyclobenzaprine Hcl 10 Mg Tab) 10 mg PO BID PRN PRN Reason: Muscle Spasm Stop: 08/04/21 06:04 Last Admin: 07/06/21 09:02 Dose: 10 mg Documented by: Diclofenac Sodium (Diclofenac Sod 1% Gel 100 Gm Tube) 2 gm EXT QID PRN PRN Reason: knee pain Stop: 08/12/21 08:59 Last Admin: 07/17/21 21:09 Dose: 2 gm Documented by: Docusate Sodium (Docusate Sodium 100 Mg Cap) 100 mg PO BID [facility] Stop: 08/04/21 08:59 Last Admin: 07/18/21 09:28 Dose: Not Given Documented by: Duloxetine HCl (Duloxetine Hcl 60 Mg Cap) 60 mg PO DAILY [facility] Stop: 08/04/21 08:59 Last Admin: 07/18/21 09:31 Dose: 60 mg Documented by: Enoxaparin Sodium (Enoxaparin Inj 40 Mg/0.4 Ml Syr) 40 mg SQ Q12H [facility] Stop: 08/09/21 09:29 Last Admin: 07/18/21 09:32 Dose: 40 mg Documented by: Ergocalciferol (Ergocalciferol 50,000 Units 1250 Mcg Cap) 50,000 units PO Fr@0900 [facility] Stop: 08/10/21 08:59 Last Admin: 07/18/21 09:31 Dose: 50,000 units Documented by: Famotidine (Famotidine 20 Mg Tab) 20 mg PO DAILY [facility] Stop: 08/04/21 08:59 Last Admin: 07/18/21 10:10 Dose: 20 mg Documented by: Finasteride (Finasteride 5 Mg Tab) 5 mg PO QAM [facility] Stop: 08/04/21 08:59 Last Admin: 07/18/21 09:31 Dose: 5 mg Documented by: Fluticasone Propionate (Fluticasone Propionate Na Spr 16 Gm Btl) 2 sprays NA DAILY [facility] Stop: 08/04/21 08:59 Last Admin: 07/18/21 09:32 Dose: 2 sprays Documented by: Fluticasone/Vilanterol (Fluticasone/Vilanterol 100/25mcg 14 Puffs/Inhaler) 1 puffs INH DAILY [facility] Stop: 08/04/21 08:59 Last Admin: 07/18/21 09:31 Dose: 1 puffs Documented by: Folic Acid (Folic Acid 1 Mg Tab) 1 mg PO QAM [facility] Stop: 08/04/21 08:59 Last Admin: 07/18/21 09:31 Dose: 1 mg Documented by: Furosemide (Furosemide 40 Mg/4 Ml Vial) 40 mg IV BID [facility] Stop: 08/15/21 20:59 Last Admin: 07/18/21 09:41 Dose: 40 mg Documented by: Gabapentin (Gabapentin 800 Mg Tab) 800 mg PO TID [facility] Stop: 08/04/21 08:59 Last Admin: 07/18/21 15:43 Dose: 800 mg Documented by: Guaifenesin/Dextromethorphan (Guaifenesin/Dextrom Syrup 200mg/20mg 10ml Udc) 10 ml PO Q6H PRN PRN Reason: Cough Stop: 08/07/21 16:40 Last Admin: 07/09/21 03:22 Dose: 10 ml Documented by: Insulin Aspart (Insulin Aspart 100 Units/Ml 3 Ml Pen) 0 units SC ACHS [facility] Stop: 08/04/21 07:29 Last Admin: 07/18/21 12:25 Dose: 10 units Documented by: Insulin Glargine (Insulin Glargine Solostar 100 Units/Ml 3 Ml Pen) 50 units SC HS [facility] Stop: 08/04/21 20:59 Last Admin: 07/17/21 20:45 Dose: 50 units Documented by: Isosorbide Mononitrate (Isosorbide [place] Extended Rel 30 Mg Tabcr) 30 mg PO DAILY [facility] Stop: 08/04/21 08:59 Last Admin: 07/18/21 09:31 Dose: 30 mg Documented by: Lactobacillus Acidoph/Casei/Rhamnos (Advanced Probiotic 1250 Mg Capsule) 2 cap PO TID [facility] Stop: 08/04/21 08:59 Last Admin: 07/18/21 15:43 Dose: 2 cap Documented by: Lorazepam (Lorazepam 0.5 Mg Tab) 0.5 mg PO Q8 PRN PRN Reason: Anxiety Stop: 08/04/21 06:04 Last Admin: 07/18/21 09:42 Dose: 0.5 mg Documented by: Melatonin (Melatonin 3 Mg Tab) 9 mg PO HS PRN PRN Reason: Sleep Stop: 08/05/21 23:06 Last Admin: 07/17/21 20:32 Dose: 9 mg Documented by: Methenamine Hippurate (Methenamine Hippurate 1 Gm Tab) 1 gm PO DAILY [facility] Stop: 08/04/21 08:59 Last Admin: 07/12/21 08:31 Dose: 1 gm Documented by: Metoprolol Succinate (Metoprolol Succ 25mg Ext Rel Tab) 75 mg PO BID [facility] Stop: 08/04/21 08:59 Last Admin: 07/18/21 09:31 Dose: 75 mg Documented by: Miscellaneous (Remove Nicoderm Patch) 1 ea N/A DAILY@0859 [facility] Stop: 08/04/21 08:58 Last Admin: 07/18/21 09:27 Dose: 1 ea Documented by: Nicotine (Nicotine 21 Mg/24 Hr Tdsy) 21 mg TD DAILY [facility] Stop: 08/04/21 08:59 Last Admin: 07/18/21 09:26 Dose: 21 mg Documented by: Nitroglycerin (Nitroglycerin Sl 0.4 Mg/Tab Tab) 0.4 mg SL UD PRN PRN Reason: Chest Pain Stop: 08/04/21 06:04 Nystatin (Nystatin Powder 15gm Btl) 1 appln EXT TID PRN PRN Reason: Skin Irritation Stop: 08/04/21 06:04 Ondansetron HCl (Ondansetron Inj 2 Mg/Ml 2 Ml Vial) 4 mg IV Q6H PRN PRN Reason: Nausea Stop: 08/04/21 06:04 Ondansetron HCl (Ondansetron 4 Mg Od Tab) 4 mg PO Q8 PRN PRN Reason: Nausea And Vomiting Stop: 08/04/21 07:09 Pantoprazole Sodium (Pantoprazole 40 Mg Tab) 40 mg PO DAILYBB [facility] Stop: 08/04/21 07:29 Last Admin: 07/18/21 04:38 Dose: 40 mg Documented by: Phenazopyridine HCl (Phenazopyridine Hcl 100 Mg Tab) 100 mg PO TID PRN PRN Reason: Dysuria Stop: 08/09/21 11:05 Last Admin: 07/14/21 14:11 Dose: 100 mg Documented by: Polyethylene Glycol (Polyethylene (Miralax) 17 Gm Pack) 17 gm PO DAILY PRN PRN Reason: Constipation Stop: 08/04/21 06:04 Polyethylene Glycol (Polyethylene (Miralax) 17 Gm Pack) 17 gm PO QAM [facility] Stop: 08/04/21 08:59 Last Admin: 07/18/21 09:28 Dose: Not Given Documented by: Potassium Chloride (Potassium Chloride Crtab 20 Meq Tabcr) 20 meq PO BID [facility] Stop: 08/04/21 08:59 Last Admin: 07/18/21 09:42 Dose: 20 meq Documented by: Sennosides (Senna 8.6 Mg Tab) 8.6 mg PO DAILY PRN PRN Reason: Constipation Stop: 08/04/21 06:04 Last Admin: 07/14/21 08:45 Dose: 8.6 mg Documented by: Spironolactone ([facility] 25 Mg Tab) [facility] Stop: 08/04/21 08:59 Last Admin: 07/18/21 09:31 Dose: 25 mg Documented by: Tamsulosin HCl (Tamsulosin Hcl 0.4 Mg Cap) 0.4 mg PO [facility] Stop: 08/04/21 08:59 Last Admin: 07/18/21 09:31 Dose: 0.4 mg Documented by: Tramadol HCl (Tramadol Hcl 50 Mg Tablet) 100 mg PO Q6 PRN PRN Reason: Pain Stop: 08/04/21 06:04 Last Admin: 07/18/21 15:47 Dose: 100 mg Documented by: Umeclidinium [place] (Umeclidinium [place] 62.5mcg/Blister 7 Puffs/Inhaler) 1 puffs INH [facility] Stop: 08/04/21 08:59 Last Admin: 07/18/21 09:31 Dose: 1 puffs Documented by: Warfarin Sodium (Warfarin Sod 7.5 Mg Tab) 7.5 mg PO DAILY@1600 [facility] Stop: 08/12/21 15:59 Last Admin: 07/18/21 15:44 Dose: 7.5 mg Documented by: (1) Urinary tract infection associated with catheterization of urinary tract Encounter type: initial encounter Indwelling urinary catheter type: indwelling urethral catheter Qualified Code(s): T83.511A - Infection and inflammatory reaction due to indwelling urethral catheter, initial encounter; N39.0 - Urinary tract infection, site not specified (2) HTN (hypertension) Hypertension type: essential hypertension Qualified Code(s): I10 - Essential (primary) hypertension
[2021-07-18] MEDS: INSULIN GLARGINE SOLOSTAR 100 UNITS/ML 3 ML PEN SC SCH (21:14)
[2021-07-18] MEDS: MELATONIN 3 MG TAB PO PRN (21:47)
[2021-07-18 22:06] LABS: Hematocrit (blood only) 42.6 % (42-52); Hemoglobin 13.3 g/dL (14.0-18.0)
[2021-07-19] MEDS: traMADol HCL 50 MG TABLET PO PRN ×4 (05:12→23:35)
[2021-07-19] MEDS: PANTOprazole 40 MG TAB PO SCH (05:52)
[2021-07-19] MEDS ORDERED: HYDROmorphone INJ 0.5 MG/0.5 ML SYR IV STA (06:16)
[2021-07-19 07:11] LABS: BUN Creatinine Ratio 16.6 (10-20); Calcium 9.3 mg/dl (8.5-10.1); Creatinine Clr Calc Pharmacy 136.8 ml/min; Est GFR (Non-African American) 72.5 ml/min; Magnesium 2.3 mg/dl (1.8-2.4); Potassium 3.9 mmol/L (3.5-5.1)
[2021-07-19 07:22] LABS: INR 1.2 (0.9-1.1); Prothrombin Time 12.1 Seconds (9.0-12.0)
[2021-07-19] MEDS: GABAPENTIN 800 MG TAB PO SCH ×3 (09:07→21:13)
[2021-07-19] MEDS: POTASSIUM CHLORIDE CRTAB 20 MEQ TABCR PO SCH ×2 (09:07→21:17)
[2021-07-19] MEDS: TAMSULOSIN HCL 0.4 MG CAP PO SCH (09:07)
[2021-07-19] MEDS: POLYETHYLENE (MIRALAX) 17 GM PACK PO SCH (09:07)
[2021-07-19] MEDS: DOCUSATE SODIUM 100 MG CAP PO SCH ×2 (09:07→21:17)
[2021-07-19] MEDS: ADVANCED PROBIOTIC 1250 MG CAPSULE PO SCH ×3 (09:07→21:15)
[2021-07-19] MEDS: FINASTERIDE 5 MG TAB PO SCH (09:07)
[2021-07-19] MEDS: FOLIC ACID 1 MG TAB PO SCH (09:07)
[2021-07-19] MEDS: FAMOTIDINE 20 MG TAB PO SCH (09:07)
[2021-07-19] MEDS: SPIRONOLACTONE 25 MG TAB PO SCH (09:07)
[2021-07-19] MEDS: ISOSORBIDE MONO EXTENDED REL 30 MG TABCR PO SCH (09:08)
[2021-07-19] MEDS: METOPROLOL SUCC 25MG EXT REL TAB PO SCH ×2 (09:08→21:15)
[2021-07-19] MEDS: DULoxetine HCL 60 MG CAP PO SCH (09:08)
[2021-07-19] MEDS: ASPIRIN 81 MG ECTAB PO SCH (09:08)
[2021-07-19] MEDS: buprenorphine HCL 8 MG SUBL SL SCH ×3 (09:12→21:12)
[2021-07-19] MEDS: NICOTINE 21 MG/24 HR TDSY TD SCH (09:13)
[2021-07-19] MEDS: ENOXAPARIN INJ 40 MG/0.4 ML SYR SQ SCH ×2 (09:15→21:16)
[2021-07-19] MEDS: INSULIN ASPART 100 UNITS/ML 3 ML PEN SC SCH ×4 (09:16→21:14)
[2021-07-19] MEDS: FUROSEMIDE 40 MG/4 ML VIAL IV SCH ×2 (09:22→21:12)
[2021-07-19] MEDS: LORazepam 0.5 MG TAB PO PRN ×2 (09:26→21:12)
[2021-07-19] MEDS: UMECLIDINIUM BROMIDE 62.5MCG/BLISTER 7 PUFFS/INHALER INH SCH (10:37)
[2021-07-19] MEDS: FLUTICASONE/VILANTEROL 100/25MCG 14 PUFFS/INHALER INH SCH (10:37)
[2021-07-19] MEDS: FLUTICASONE PROPIONATE NA SPR 16 GM BTL SCH (10:38)
[2021-07-19] MEDS ORDERED: Nursing to Pharmacy Communication SCH (10:45)
[2021-07-19] MEDS: ATORVASTATIN 40 MG TAB PO SCH (13:18)
--- NOTE | 2021-07-19 14:57 | Hospitalist Progress Note ---
Date of Service July 19, 2021 Assessment & Plan (1) Acute on chronic diastolic heart failure: Plan: Presented with about 20 pounds weight gain in a few days with associated shortness of breath and increasing leg swelling Noted to have chest x-ray evidence of CHF Repeat CXR Cardiomegaly without evidence of pulmonary edema. Diuresing well-cumulative balance is [phone] as of 07/14/2021 Needs follow-up with cardiology upon discharge Volume Status improved IV Lasix transitioned to PO Lasix changed back to IV for better diuresis as he has been complaining of more wheezing and bloated Cumulative fluid losses 50 L since admission No signs and/or symptoms of fluid overload Bright red blood per rectum Likely secondary to hemorrhoids Hemoglobin remained stable and will monitor Hemoccult has been negative and INR is not yet therapeutic Reassured (2) Chronic pain disorder: Plan: Has been on Ultram He has been on 100 mg Ultram every 6 hourly as needed He cyclobenzaprine has been discontinued because of severe interaction Continue current meds Has been complaining of increasing pain in in the knees, ankles and back We will consult pain therapist for further guidance on pain medications Appreciate pain therapy input and recommendation No narcotic pain medication as long as the patient is on Suboxone (3) COPD exacerbation: Plan: Chronic respiratory failure with hypoxia--uses 4 L at bedtime and intermittently H/O COPD and may have mild exacerbation Continue with nebulized bronchodilator and inhalers Minimal wheezing on examination but no shortness of breath Minimal wheezing may be secondary to COPD Has minimal wheezing but does not require any further treatment for that Minimal wheezing secondary to COPD but no acute exacerbation (4) Obesity hypoventilation syndrome: Plan: BMI 60 (5) Urinary tract infection associated with catheterization of urinary tract: Plan: H/O Indwelling Lloyd catheter with recurrent urinary tract infection UTI:POA Likely secondary to chronic Lloyd catheter Urine culture growing , Enterococcus faecalis, nonfermenter species Changed Lloyd catheter Continue Zosyn >> Transition to Levaquin, ampicillin on 07/10 Unasyn and Bactrim have been discontinued Will get repeat UA examination and culture to make sure there is no infection Repeat UA has been negative We will repeat UA prior to discharge (6) DM type 2 (diabetes mellitus, type 2): Plan: We will continue with his usual insulin at home SSI (7) Anticoagulated on Coumadin: Plan: H/O PE and DVT INR Subtherapeutic Continue Coumadin Monitor INR:1.2 on 07/14/2021 Increase Coumadin to 7.5mg today Lovenox SQ until INR is therapeutic We will check INR tomorrow again-1.2 on 07/17/2021 Surprisingly INR remains low at 1.2 Will increase Coumadin to 10 mg (8) HTN (hypertension): Plan: Blood pressure is stable Continue current medications Plan: BPH Continue current medicine DVT Px: Coumadin Lovenox SQ till INR therapeutic CODE STATUS Full Code Admission and Anticipated Discharge Date Admission Date: July 05, 2021 Subjective 07/14/2021 The patient was seen and examined in medical telemetry unit He has been waiting to be placed Complains to have some wheezing especially when ambulate Remains weak and lethargic July 15, 2021 The patient was seen and examined in medical floor He remained stable but complains more pain in the knees and asking for pain medication 07/16/2021 The patient was seen and examined in medical floor He complains of more pain in both the knees, ankle and at the back He cannot participate in physical therapy without adequate pain medications Has wheezing but denies any shortness of breath at rest No fever and no chills 07/17/2021 The patient was seen and examined in medical floor He complains to have increasing pain in the knees ankles and back He also has problem with his inhalers and believes that the device is being used for other patients too Still has minimal wheezing 07/18/2021 The patient was seen and examined in medical floor He has been stable but he still complains of pain in the knee joint and asking for as needed tramadol He was seen by pain therapist and is strongly advised not to give any more narcotic pain medications 07/19/2021 The patient was seen and examined in medical floor He has had bright red blood per rectum yesterday and so far x2 He complains to have more pain involving the right upper quadrant and neck area Still has wheezing but no shortness of breath at rest and saturating normally on room air Review of Systems Review of Systems: All systems reviewed and are unremarkable except as noted below Musculoskeletal: Ongoing pain in the leg and back. Physical Exam Physical Exam: Lying in the bed with minimal wheezing and shortness of breath Constitutional: well developed, well nourished and + morbidly obese; not ill appearing Eyes: PERRL, conjunctivae normal, anicteric sclerae ENMT: external ear and nose normal, oropharynx normal Neck: trachea midline, no thyromegaly Respiratory: + respiratory distress (Minimal distress at rest), + cough and + audible wheezes Auscultation: + diminished lung sounds, + crackles (Minimal crackles at the bases) and + wheezes (Mild wheezing all over-improves with cough) Cardiovascular: Rate/Rhythm: regular rate and regular rhythm; not tachycardic Heart Sounds: normal S1 and normal S2; no murmur Extremities: + edema (1+ edema bilaterally with chronic skin changes) Gastrointestinal (Abdomen): Inspection/Auscultation: + abdomen distended and normal bowel sounds Percussion/Palpation: abdomen soft; abdomen nontender Musculoskeletal: Minimal pain with movement of the right knee and left ankle Neurologic: Alert, 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. Generally weak but no focal neuro deficit Lymphatic: no cervical or axillary lymphadenopathy Results & Data Results & Data ([facility]) Vital Signs (Past 12 Hours) Vital Signs Temp Pulse Pulse Resp BP BP Pulse Ox 07/19/21 14:44 36.4 C L 60 20 124/65 93 07/19/21 14:42 36.4 C L 60 07/19/21 08:50 64 07/19/21 07:19 36.5 C 57 L 20 129/71 98 Laboratory Results Short CBC 07/18/21 Range/Units 21:57 Hgb 13.3 L (14.0-18.0) g/dL Hct 42.6 (42-52) % BMP 07/19/21 05:36 Sodium 139 Potassium 3.9 Chloride 102 Carbon Dioxide 34 H BUN 19 H Creatinine 1.16 Glucose 122 H Calcium 9.3 Medications Administered Current Inpatient Medications Albuterol (Albuterol Hfa 8 Gm Inhaler) 2 puffs INH Q4 PRN PRN Reason: Dyspnea Stop: 08/04/21 06:04 Last Admin: 07/15/21 19:32 Dose: 2 puffs Documented by: Albuterol (Albut/Ipratrop 3mg/0.5mg Neb 3 Ml Vial) 3 ml INH Q6H PRN PRN Reason: Shortness Of Breath Or Wheezing Stop: 08/04/21 06:04 Aspirin (Aspirin 81 Mg Ectab) 81 mg PO QAM [facility] Stop: 08/04/21 08:59 Last Admin: 07/19/21 09:08 Dose: 81 mg Documented by: Atorvastatin Calcium (Atorvastatin 40 Mg Tab) 80 mg PO QDL [facility] Stop: 08/04/21 11:29 Last Admin: 07/19/21 13:18 Dose: 80 mg Documented by: Buprenorphine HCl (Buprenorphine Hcl 8 Mg Subl) 8 mg SL TID [facility] Stop: 08/04/21 08:59 Last Admin: 07/19/21 13:27 Dose: 8 mg Documented by: Cyclobenzaprine HCl (Cyclobenzaprine Hcl 10 Mg Tab) 10 mg PO BID PRN PRN Reason: Muscle Spasm Stop: 08/04/21 06:04 Last Admin: 07/06/21 09:02 Dose: 10 mg Documented by: Diclofenac Sodium (Diclofenac Sod 1% Gel 100 Gm Tube) 2 gm EXT QID PRN PRN Reason: knee pain Stop: 08/12/21 08:59 Last Admin: 07/17/21 21:09 Dose: 2 gm Documented by: Docusate Sodium (Docusate Sodium 100 Mg Cap) 100 mg PO BID EMP[facility]ATRIZ Stop: 08/04/21 08:59 Last Admin: 07/19/21 09:07 Dose: 100 mg Documented by: Duloxetine HCl (Duloxetine Hcl 60 Mg Cap) 60 mg PO DAILY [facility] Stop: 08/04/21 08:59 Last Admin: 07/19/21 09:08 Dose: 60 mg Documented by: Enoxaparin Sodium (Enoxaparin Inj 40 Mg/0.4 Ml Syr) 40 mg SQ Q12H [facility] Stop: 08/09/21 09:29 Last Admin: 07/19/21 09:15 Dose: 40 mg Documented by: Ergocalciferol (Ergocalciferol 50,000 Units 1250 Mcg Cap) 50,000 units PO Fr@0900 [facility] Stop: 08/10/21 08:59 Last Admin: 07/18/21 09:31 Dose: 50,000 units Documented by: Famotidine (Famotidine 20 Mg Tab) 20 mg PO DAILY [facility] Stop: 08/04/21 08:59 Last Admin: 07/19/21 09:07 Dose: 20 mg Documented by: Finasteride (Finasteride 5 Mg Tab) 5 mg PO QAM [facility] Stop: 08/04/21 08:59 Last Admin: 07/19/21 09:07 Dose: 5 mg Documented by: Fluticasone Propionate (Fluticasone Propionate Na Spr 16 Gm Btl) 2 sprays NA DAILY [facility] Stop: 08/04/21 08:59 Last Admin: 07/19/21 10:38 Dose: 2 sprays Documented by: Fluticasone/Vilanterol (Fluticasone/Vilanterol 100/25mcg 14 Puffs/Inhaler) 1 puffs INH DAILY [facility] Stop: 08/04/21 08:59 Last Admin: 07/19/21 10:37 Dose: 1 puffs Documented by: Folic Acid (Folic Acid 1 Mg Tab) 1 mg PO QAM [facility] Stop: 08/04/21 08:59 Last Admin: 07/19/21 09:07 Dose: 1 mg Documented by: Furosemide (Furosemide 40 Mg/4 Ml Vial) 40 mg IV BID [facility] Stop: 08/15/21 20:59 Last Admin: 07/19/21 09:22 Dose: 40 mg Documented by: Gabapentin (Gabapentin 800 Mg Tab) 800 mg PO TID [facility] Stop: 08/04/21 08:59 Last Admin: 07/19/21 13:26 Dose: 800 mg Documented by: Guaifenesin/Dextromethorphan (Guaifenesin/Dextrom Syrup 200mg/20mg 10ml Udc) 10 ml PO Q6H PRN PRN Reason: Cough Stop: 08/07/21 16:40 Last Admin: 07/09/21 03:22 Dose: 10 ml Documented by: Insulin Aspart (Insulin Aspart 100 Units/Ml 3 Ml Pen) 0 units SC ACHS [facility] Stop: 08/04/21 07:29 Last Admin: 07/19/21 13:20 Dose: 8 units Documented by: Insulin Glargine (Insulin Glargine Solostar 100 Units/Ml 3 Ml Pen) 50 units SC HS [facility] Stop: 08/04/21 20:59 Last Admin: 07/18/21 21:14 Dose: 50 units Documented by: Isosorbide Mononitrate (Isosorbide [place] Extended Rel 30 Mg Tabcr) 30 mg PO DAILY [facility] Stop: 08/04/21 08:59 Last Admin: 07/19/21 09:08 Dose: 30 mg Documented by: Lactobacillus Acidoph/Casei/Rhamnos (Advanced Probiotic 1250 Mg Capsule) 2 cap PO TID [facility] Stop: 08/04/21 08:59 Last Admin: 07/19/21 13:26 Dose: 2 cap Documented by: Lorazepam (Lorazepam 0.5 Mg Tab) 0.5 mg PO Q8 PRN PRN Reason: Anxiety Stop: 08/04/21 06:04 Last Admin: 07/19/21 09:26 Dose: 0.5 mg Documented by: Melatonin (Melatonin 3 Mg Tab) 9 mg PO HS PRN PRN Reason: Sleep Stop: 08/05/21 23:06 Last Admin: 07/18/21 21:47 Dose: 9 mg Documented by: Methenamine Hippurate (Methenamine Hippurate 1 Gm Tab) 1 gm PO DAILY [facility] Stop: 08/04/21 08:59 Last Admin: 07/12/21 08:31 Dose: 1 gm Documented by: Metoprolol Succinate (Metoprolol Succ 25mg Ext Rel Tab) 75 mg PO BID [facility] Stop: 08/04/21 08:59 Last Admin: 07/19/21 09:08 Dose: 75 mg Documented by: Miscellaneous (Remove Nicoderm Patch) 1 ea N/A DAILY@0859 [facility] Stop: 08/04/21 08:58 Last Admin: 07/19/21 09:14 Dose: 1 ea Documented by: Nicotine (Nicotine 21 Mg/24 Hr Tdsy) 21 mg TD DAILY [facility] Stop: 08/04/21 08:59 Last Admin: 07/19/21 09:13 Dose: 21 mg Documented by: Nitroglycerin (Nitroglycerin Sl 0.4 Mg/Tab Tab) 0.4 mg SL UD PRN PRN Reason: Chest Pain Stop: 08/04/21 06:04 Nystatin (Nystatin Powder 15gm Btl) 1 appln EXT TID PRN PRN Reason: Skin Irritation Stop: 08/04/21 06:04 Ondansetron HCl (Ondansetron Inj 2 Mg/Ml 2 Ml Vial) 4 mg IV Q6H PRN PRN Reason: Nausea Stop: 08/04/21 06:04 Ondansetron HCl (Ondansetron 4 Mg Od Tab) 4 mg PO Q8 PRN PRN Reason: Nausea And Vomiting Stop: 08/04/21 07:09 Pantoprazole Sodium (Pantoprazole 40 Mg Tab) 40 mg PO DAILYBB [facility] Stop: 08/04/21 07:29 Last Admin: 07/19/21 05:52 Dose: 40 mg Documented by: Phenazopyridine HCl (Phenazopyridine Hcl 100 Mg Tab) 100 mg PO TID PRN PRN Reason: Dysuria Stop: 08/09/21 11:05 Last Admin: 07/14/21 14:11 Dose: 100 mg Documented by: Polyethylene Glycol (Polyethylene (Miralax) 17 Gm Pack) 17 gm PO DAILY PRN PRN Reason: Constipation Stop: 08/04/21 06:04 Polyethylene Glycol (Polyethylene (Miralax) 17 Gm Pack) 17 gm PO QAM [facility] Stop: 08/04/21 08:59 Last Admin: 07/19/21 09:07 Dose: 17 gm Documented by: Potassium Chloride (Potassium Chloride Crtab 20 Meq Tabcr) 20 meq PO BID [facility] Stop: 08/04/21 08:59 Last Admin: 07/19/21 09:07 Dose: 20 meq Documented by: Sennosides (Senna 8.6 Mg Tab) 8.6 mg PO DAILY PRN PRN Reason: Constipation Stop: 08/04/21 06:04 Last Admin: 07/14/21 08:45 Dose: 8.6 mg Documented by: Spironolactone ([facility] 25 Mg Tab) [facility] [place]: 08/04/21 08:59 Last Admin: 07/19/21 09:07 Dose: 25 mg Documented by: Tamsulosin HCl (Tamsulosin Hcl 0.4 Mg Cap) 0.4 mg PO QAM [facility] Stop: 08/04/21 08:59 Last Admin: 07/19/21 09:07 Dose: 0.4 mg Documented by: Tramadol HCl (Tramadol Hcl 50 Mg Tablet) 100 mg PO Q6 PRN PRN Reason: Pain Stop: 08/04/21 06:04 Last Admin: 07/19/21 11:25 Dose: 100 mg Documented by: Umeclidinium [place] (Umeclidinium [place] 62.5mcg/Blister 7 Puffs/Inhaler) 1 puffs INH QAM [facility] Stop: 08/04/21 08:59 Last Admin: 07/19/21 10:37 Dose: 1 puffs Documented by: Warfarin Sodium (Warfarin Sod 10 Mg Tab) 10 mg PO DAILY@1600 [facility] Stop: 08/18/21 15:59 (1) Urinary tract infection associated with catheterization of urinary tract Encounter type: initial encounter Indwelling urinary catheter type: indwelling urethral catheter Qualified Code(s): T83.511A - Infection and inflammatory reaction due to indwelling urethral catheter, initial encounter; N39.0 - Urinary tract infection, site not specified (2) HTN (hypertension) Hypertension type: essential hypertension Qualified Code(s): I10 - Essential (primary) hypertension
[2021-07-19] MEDS: WARFARIN SOD 10 MG TAB PO SCH (15:28)
[2021-07-19] MEDS: MELATONIN 3 MG TAB PO PRN (21:12)
[2021-07-19] MEDS: INSULIN GLARGINE SOLOSTAR 100 UNITS/ML 3 ML PEN SC SCH (21:13)
[2021-07-20] MEDS: PANTOprazole 40 MG TAB PO SCH (07:16)
[2021-07-20] MEDS: traMADol HCL 50 MG TABLET PO PRN ×3 (07:35→19:33)
[2021-07-20 07:49] LABS: Basophils # (auto) 0.05 K/uL (0-0.2); Basophils % (auto) 0.5 %; Eosinophils # (auto) 0.65 K/uL (0-0.5); Hematocrit (blood only) 41.7 % (42-52); Hemoglobin 13.2 g/dL (14.0-18.0); Immature Granulocytes # (auto) 0.04 K/uL (0.00-0.02); Immature Granulocytes % (auto) 0.4 %; Lymphocytes # (auto) 3.25 K/uL (1.2-3.4); Lymphocytes % (auto) 29.8 %; Mean Corpuscular Hemoglobin 26.9 pg (25-34); Mean Corpuscular Hgb Conc 31.7 g/dL (32-36); Mean Corpuscular Volume 84.9 fL (80-100); Mean Platelet Volume 10.2 fL (7.4-10.4); Monocytes # (auto) 0.91 K/uL (0.11-0.59); Monocytes % (auto) 8.3 %; Neutrophils # (auto) 6.02 K/uL (1.4-6.5); Platelet Count 241 K/uL (130-400); RDW Coefficient of Variation 17.4 % (11.5-14.5); Red Blood Count 4.91 M/uL (4.7-6.1); White Blood Count 10.92 K/uL (4.8-10.8)
[2021-07-20 07:56] LABS: INR 1.2 (0.9-1.1); Prothrombin Time 12.3 Seconds (9.0-12.0)
[2021-07-20 08:05] LABS: BUN Creatinine Ratio 17.2 (10-20); Calcium 9.8 mg/dl (8.5-10.1); Creatinine Clr Calc Pharmacy 132.2 ml/min; Est GFR (African American) 80.7 ml/min; Est GFR (Non-African American) 69.6 ml/min; Potassium 3.9 mmol/L (3.5-5.1)
[2021-07-20] MEDS: FLUTICASONE/VILANTEROL 100/25MCG 14 PUFFS/INHALER INH SCH (09:52)
[2021-07-20] MEDS: UMECLIDINIUM BROMIDE 62.5MCG/BLISTER 7 PUFFS/INHALER INH SCH (09:52)
[2021-07-20] MEDS: FLUTICASONE PROPIONATE NA SPR 16 GM BTL SCH (09:52)
[2021-07-20] MEDS: INSULIN ASPART 100 UNITS/ML 3 ML PEN SC SCH ×4 (09:56→21:56)
[2021-07-20] MEDS: METOPROLOL SUCC 25MG EXT REL TAB PO SCH ×2 (09:57→20:35)
[2021-07-20] MEDS: ASPIRIN 81 MG ECTAB PO SCH (09:57)
[2021-07-20] MEDS: FOLIC ACID 1 MG TAB PO SCH (09:58)
[2021-07-20] MEDS: POTASSIUM CHLORIDE CRTAB 20 MEQ TABCR PO SCH ×2 (09:58→20:34)
[2021-07-20] MEDS: TAMSULOSIN HCL 0.4 MG CAP PO SCH (09:58)
[2021-07-20] MEDS: DULoxetine HCL 60 MG CAP PO SCH (09:58)
[2021-07-20] MEDS: SPIRONOLACTONE 25 MG TAB PO SCH (09:58)
[2021-07-20] MEDS: ISOSORBIDE MONO EXTENDED REL 30 MG TABCR PO SCH (09:58)
[2021-07-20] MEDS: FINASTERIDE 5 MG TAB PO SCH (09:58)
[2021-07-20] MEDS: GABAPENTIN 800 MG TAB PO SCH ×3 (09:58→20:36)
[2021-07-20] MEDS: ADVANCED PROBIOTIC 1250 MG CAPSULE PO SCH ×3 (09:58→20:38)
[2021-07-20] MEDS: NICOTINE 21 MG/24 HR TDSY TD SCH (09:59)
[2021-07-20] MEDS: ENOXAPARIN INJ 40 MG/0.4 ML SYR SQ SCH ×2 (10:07→20:40)
[2021-07-20] MEDS: FAMOTIDINE 20 MG TAB PO SCH (10:17)
[2021-07-20] MEDS: DOCUSATE SODIUM 100 MG CAP PO SCH ×2 (10:17→20:49)
[2021-07-20] MEDS: POLYETHYLENE (MIRALAX) 17 GM PACK PO SCH (10:17)
[2021-07-20] MEDS: LORazepam 0.5 MG TAB PO PRN ×2 (10:17→20:32)
[2021-07-20] MEDS: buprenorphine HCL 8 MG SUBL SL SCH ×3 (10:19→20:49)
[2021-07-20] MEDS: FUROSEMIDE 40 MG/4 ML VIAL IV SCH ×2 (10:20→21:50)
[2021-07-20] MEDS: ATORVASTATIN 40 MG TAB PO SCH (12:24)
--- NOTE | 2021-07-20 13:49 | Hospitalist Progress Note ---
Date of Service July 20, 2021 Assessment & Plan (1) Acute on chronic diastolic heart failure: Plan: Presented with about 20 pounds weight gain in a few days with associated shortness of breath and increasing leg swelling Noted to have chest x-ray evidence of CHF Repeat CXR Cardiomegaly without evidence of pulmonary edema. Diuresing well-cumulative balance is [phone] as of 07/14/2021 Needs follow-up with cardiology upon discharge Volume Status improved IV Lasix transitioned to PO Lasix changed back to IV for better diuresis as he has been complaining of more wheezing and bloated Cumulative fluid losses 50 L since admission Complains to have bloated and also wheezing Will get chest x-ray Bright red blood per rectum Likely secondary to hemorrhoids Hemoglobin remained stable and will monitor Hemoccult has been negative and INR is not yet therapeutic Reassured-no more blood per rectum and hemoglobin remains stable Hemoccult has been negative (2) Chronic pain disorder: Plan: Has been on Ultram He has been on 100 mg Ultram every 6 hourly as needed He cyclobenzaprine has been discontinued because of severe interaction Continue current meds Has been complaining of increasing pain in in the knees, ankles and back We will consult pain therapist for further guidance on pain medications Appreciate pain therapy input and recommendation No narcotic pain medication as long as the patient is on Suboxone (3) COPD exacerbation: Plan: Chronic respiratory failure with hypoxia--uses 4 L at bedtime and intermittently H/O COPD and may have mild exacerbation Continue with nebulized bronchodilator and inhalers Minimal wheezing on examination but no shortness of breath Minimal wheezing may be secondary to COPD Has minimal wheezing but does not require any further treatment for that Minimal wheezing secondary to COPD but no acute exacerbation (4) Obesity hypoventilation syndrome: Plan: BMI 60 (5) Urinary tract infection associated with catheterization of urinary tract: Plan: H/O Indwelling Lloyd catheter with recurrent urinary tract infection UTI:POA Likely secondary to chronic Lloyd catheter Urine culture growing , Enterococcus faecalis, nonfermenter species Changed Lloyd catheter Continue Zosyn >> Transition to Levaquin, ampicillin on 07/10 Unasyn and Bactrim have been discontinued Will get repeat UA examination and culture to make sure there is no infection Repeat UA has been negative We will repeat UA prior to discharge (6) DM type 2 (diabetes mellitus, type 2): Plan: We will continue with his usual insulin at home SSI (7) Anticoagulated on Coumadin: Plan: H/O PE and DVT INR Subtherapeutic Continue Coumadin Monitor INR:1.2 on 07/14/2021 Increase Coumadin to 7.5mg today Lovenox SQ until INR is therapeutic We will check INR tomorrow again-1.2 on 07/17/2021 Surprisingly INR remains low at 1.2 Will increase Coumadin to 10 mg-in spite of getting Coumadin 10 mg a day his INR remains subtherapeutic at 1.2 Advised the nurse to make sure that he has been taking Coumadin (8) HTN (hypertension): Plan: Blood pressure is stable Continue current medications Plan: BPH Continue current medicine DVT Px: Coumadin Lovenox SQ till INR therapeutic CODE STATUS Full Code Admission and Anticipated Discharge Date Admission Date: July 05, 2021 Subjective 07/14/2021 The patient was seen and examined in medical telemetry unit He has been waiting to be placed Complains to have some wheezing especially when ambulate Remains weak and lethargic July 15, 2021 The patient was seen and examined in medical floor He remained stable but complains more pain in the knees and asking for pain medication 07/16/2021 The patient was seen and examined in medical floor He complains of more pain in both the knees, ankle and at the back He cannot participate in physical therapy without adequate pain medications Has wheezing but denies any shortness of breath at rest No fever and no chills 07/17/2021 The patient was seen and examined in medical floor He complains to have increasing pain in the knees ankles and back He also has problem with his inhalers and believes that the device is being used for other patients too Still has minimal wheezing 07/18/2021 The patient was seen and examined in medical floor He has been stable but he still complains of pain in the knee joint and asking for as needed tramadol He was seen by pain therapist and is strongly advised not to give any more narcotic pain medications 07/19/2021 The patient was seen and examined in medical floor He has had bright red blood per rectum yesterday and so far x2 He complains to have more pain involving the right upper quadrant and neck area Still has wheezing but no shortness of breath at rest and saturating normally on room air 07/20/2021 The patient was seen and examined in medical floor He complains of wheezing and his INR remains subtherapeutic at 1.2 He mentions that he has been taking Coumadin regularly and has not been eating any diet that will hamper absorption Denies any other symptom Review of Systems Review of Systems: All systems reviewed and are unremarkable except as noted below Musculoskeletal: Ongoing pain in the leg and back. Physical Exam Physical Exam: Lying in the bed with minimal wheezing and shortness of breath Constitutional: well developed, well nourished and + morbidly obese; not ill appearing Eyes: PERRL, conjunctivae normal, anicteric sclerae ENMT: external ear and nose normal, oropharynx normal Neck: trachea midline, no thyromegaly Respiratory: + respiratory distress (Minimal distress at rest), + cough and + audible wheezes Auscultation: + diminished lung sounds, + crackles (Minimal crackles at the bases) and + wheezes (Mild wheezing all over-improves with cough) Cardiovascular: Rate/Rhythm: regular rate and regular rhythm; not tachycardic Heart Sounds: normal S1 and normal S2; no murmur Extremities: + edema (1+ edema bilaterally with chronic skin changes) Gastrointestinal (Abdomen): Inspection/Auscultation: + abdomen distended and normal bowel sounds Percussion/Palpation: abdomen soft; abdomen nontender Musculoskeletal: Minimal pain with movement of the right knee and left ankle Neurologic: Awake and oriented x3 Lymphatic: no cervical or axillary lymphadenopathy Results & Data Results & Data ([facility]) Vital Signs (Past 12 Hours) Vital Signs Temp Pulse Resp BP Pulse Ox 07/20/21 07:15 36.6 C 66 20 130/78 94 Laboratory Results Short CBC 07/20/21 Range/Units 07:16 WBC 10.92 H (4.8-10.8) K/uL Hgb 13.2 L (14.0-18.0) g/dL Hct 41.7 L (42-52) % Plt Count 241 (130-400) K/uL BMP 07/20/21 07:16 Sodium 139 Potassium 3.9 Chloride 103 Carbon Dioxide 35 H BUN 21 H Creatinine 1.20 Glucose 124 H Calcium 9.8 Medications Administered Current Inpatient Medications Albuterol (Albuterol Hfa 8 Gm Inhaler) 2 puffs INH Q4 PRN PRN Reason: Dyspnea Stop: 08/04/21 06:04 Last Admin: 07/15/21 19:32 Dose: 2 puffs Documented by: Albuterol (Albut/Ipratrop 3mg/0.5mg Neb 3 Ml Vial) 3 ml INH Q6H PRN PRN Reason: Shortness Of Breath Or Wheezing Stop: 08/04/21 06:04 Aspirin (Aspirin 81 Mg Ectab) 81 mg PO QAM [facility] Stop: 08/04/21 08:59 Last Admin: 07/20/21 09:57 Dose: 81 mg Documented by: Atorvastatin Calcium (Atorvastatin 40 Mg Tab) 80 mg PO QDL [facility] Stop: 08/04/21 11:29 Last Admin: 07/20/21 12:24 Dose: 80 mg Documented by: Buprenorphine HCl (Buprenorphine Hcl 8 Mg Subl) 8 mg SL TID [facility] Stop: 08/04/21 08:59 Last Admin: 07/20/21 13:33 Dose: 8 mg Documented by: Cyclobenzaprine HCl (Cyclobenzaprine Hcl 10 Mg Tab) 10 mg PO BID PRN PRN Reason: Muscle Spasm Stop: 08/04/21 06:04 Last Admin: 07/06/21 09:02 Dose: 10 mg Documented by: Diclofenac Sodium (Diclofenac Sod 1% Gel 100 Gm Tube) 2 gm EXT QID PRN PRN Reason: knee pain Stop: 08/12/21 08:59 Last Admin: 07/17/21 21:09 Dose: 2 gm Documented by: Docusate Sodium (Docusate Sodium 100 Mg Cap) 100 mg PO BID [facility] Stop: 08/04/21 08:59 Last Admin: 07/20/21 10:17 Dose: 100 mg Documented by: Duloxetine HCl (Duloxetine Hcl 60 Mg Cap) 60 mg PO DAILY [facility] Stop: 08/04/21 08:59 Last Admin: 07/20/21 09:58 Dose: 60 mg Documented by: Enoxaparin Sodium (Enoxaparin Inj 40 Mg/0.4 Ml Syr) 40 mg SQ Q12H [facility] Stop: 08/09/21 09:29 Last Admin: 07/20/21 10:07 Dose: 40 mg Documented by: Ergocalciferol (Ergocalciferol 50,000 Units 1250 Mcg Cap) 50,000 units PO Fr@0900 [facility] Stop: 08/10/21 08:59 Last Admin: 07/18/21 09:31 Dose: 50,000 units Documented by: Famotidine (Famotidine 20 Mg Tab) 20 mg PO DAILY [facility] Stop: 08/04/21 08:59 Last Admin: 07/20/21 10:17 Dose: 20 mg Documented by: Finasteride (Finasteride 5 Mg Tab) 5 mg PO QAM [facility] Stop: 08/04/21 08:59 Last Admin: 07/20/21 09:58 Dose: 5 mg Documented by: Fluticasone Propionate (Fluticasone Propionate Na Spr 16 Gm Btl) 2 sprays NA DAILY [facility] Stop: 08/04/21 08:59 Last Admin: 07/20/21 09:52 Dose: 2 sprays Documented by: Fluticasone/Vilanterol (Fluticasone/Vilanterol 100/25mcg 14 Puffs/Inhaler) 1 puffs INH DAILY [facility] Stop: 08/04/21 08:59 Last Admin: 07/20/21 09:52 Dose: 1 puffs Documented by: Folic Acid (Folic Acid 1 Mg Tab) 1 mg PO QAM [facility] Stop: 08/04/21 08:59 Last Admin: 07/20/21 09:58 Dose: 1 mg Documented by: Furosemide (Furosemide 40 Mg/4 Ml Vial) 40 mg IV BID [facility] Stop: 08/15/21 20:59 Last Admin: 07/20/21 10:20 Dose: 40 mg Documented by: Gabapentin (Gabapentin 800 Mg Tab) 800 mg PO TID [facility] Stop: 08/04/21 08:59 Last Admin: 07/20/21 13:32 Dose: 800 mg Documented by: Guaifenesin/Dextromethorphan (Guaifenesin/Dextrom Syrup 200mg/20mg 10ml Udc) 10 ml PO Q6H PRN PRN Reason: Cough Stop: 08/07/21 16:40 Last Admin: 07/09/21 03:22 Dose: 10 ml Documented by: Insulin Aspart (Insulin Aspart 100 Units/Ml 3 Ml Pen) 0 units SC ACHS [facility] Stop: 08/04/21 07:29 Last Admin: 07/20/21 13:17 Dose: 6 units Documented by: Insulin Glargine (Insulin Glargine Solostar 100 Units/Ml 3 Ml Pen) 50 units SC HS [facility] Stop: 08/04/21 20:59 Last Admin: 07/19/21 21:13 Dose: 50 units Documented by: Isosorbide Mononitrate (Isosorbide [place] Extended Rel 30 Mg Tabcr) 30 mg PO DAILY [facility] Stop: 08/04/21 08:59 Last Admin: 07/20/21 09:58 Dose: 30 mg Documented by: Lactobacillus Acidoph/Casei/Rhamnos (Advanced Probiotic 1250 Mg Capsule) 2 cap PO TID [facility] Stop: 08/04/21 08:59 Last Admin: 07/20/21 13:32 Dose: 2 cap Documented by: Lorazepam (Lorazepam 0.5 Mg Tab) 0.5 mg PO Q8 PRN PRN Reason: Anxiety Stop: 08/04/21 06:04 Last Admin: 07/20/21 10:17 Dose: 0.5 mg Documented by: Melatonin (Melatonin 3 Mg Tab) 9 mg PO HS PRN PRN Reason: Sleep Stop: 08/05/21 23:06 Last Admin: 07/19/21 21:12 Dose: 9 mg Documented by: Methenamine Hippurate (Methenamine Hippurate 1 Gm Tab) 1 gm PO DAILY [facility] Stop: 08/04/21 08:59 Last Admin: 07/12/21 08:31 Dose: 1 gm Documented by: Metoprolol Succinate (Metoprolol Succ 25mg Ext Rel Tab) 75 mg PO BID [facility] Stop: 08/04/21 08:59 Last Admin: 07/20/21 09:57 Dose: 75 mg Documented by: Miscellaneous (Remove Nicoderm Patch) 1 ea N/A DAILY@0859 [facility] Stop: 08/04/21 08:58 Last Admin: 07/20/21 09:59 Dose: 1 ea Documented by: Nicotine (Nicotine 21 Mg/24 Hr Tdsy) 21 mg TD DAILY [facility] Stop: 08/04/21 08:59 Last Admin: 07/20/21 09:59 Dose: 21 mg Documented by: Nitroglycerin (Nitroglycerin Sl 0.4 Mg/Tab Tab) 0.4 mg SL UD PRN PRN Reason: Chest Pain Stop: 08/04/21 06:04 Nystatin (Nystatin Powder 15gm Btl) 1 appln EXT TID PRN PRN Reason: Skin Irritation Stop: 08/04/21 06:04 Ondansetron HCl (Ondansetron Inj 2 Mg/Ml 2 Ml Vial) 4 mg IV Q6H PRN PRN Reason: Nausea Stop: 08/04/21 06:04 Ondansetron HCl (Ondansetron 4 Mg Od Tab) 4 mg PO Q8 PRN PRN Reason: Nausea And Vomiting Stop: 08/04/21 07:09 Pantoprazole Sodium (Pantoprazole 40 Mg Tab) 40 mg PO DAILYBB [facility] Stop: 08/04/21 07:29 Last Admin: 07/20/21 07:16 Dose: 40 mg Documented by: Phenazopyridine HCl (Phenazopyridine Hcl 100 Mg Tab) 100 mg PO TID PRN PRN Reason: Dysuria Stop: 08/09/21 11:05 Last Admin: 07/14/21 14:11 Dose: 100 mg Documented by: Polyethylene Glycol (Polyethylene (Miralax) 17 Gm Pack) 17 gm PO DAILY PRN PRN Reason: Constipation Stop: 08/04/21 06:04 Polyethylene Glycol (Polyethylene (Miralax) 17 Gm Pack) [facility]: 08/04/21 08:59 Last Admin: 07/20/21 10:17 Dose: 17 gm Documented by: Potassium Chloride (Potassium Chloride Crtab 20 Meq Tabcr) 20 meq PO BID [facility] Stop: 08/04/21 08:59 Last Admin: 07/20/21 09:58 Dose: 20 meq Documented by: Sennosides (Senna 8.6 Mg Tab) 8.6 mg PO DAILY PRN PRN Reason: Constipation Stop: 08/04/21 06:04 Last Admin: 07/14/21 08:45 Dose: 8.6 mg Documented by: Spironolactone (Spironolactone 25 Mg Tab) [facility] [place] Stop: 08/04/21 08:59 Last Admin: 07/20/21 09:58 Dose: 25 mg Documented by: Tamsulosin HCl (Tamsulosin Hcl 0.4 Mg Cap) 0.4 mg PO [facility] Stop: 08/04/21 08:59 Last Admin: 07/20/21 09:58 Dose: 0.4 mg Documented by: Tramadol HCl (Tramadol Hcl 50 Mg Tablet) 100 mg PO Q6 PRN PRN Reason: Pain Stop: 08/04/21 06:04 Last Admin: 07/20/21 13:37 Dose: 100 mg Documented by: Umeclidinium [place] (Umeclidinium [place] 62.5mcg/Blister 7 Puffs/Inhaler) 1 puffs INH QAM [facility] Stop: 08/04/21 08:59 Last Admin: 07/20/21 09:52 Dose: 1 puffs Documented by: Warfarin Sodium (Warfarin Sod 10 Mg Tab) 10 mg PO DAILY@1600 [facility] Stop: 08/18/21 15:59 Last Admin: 07/19/21 15:28 Dose: 10 mg Documented by: (1) Urinary tract infection associated with catheterization of urinary tract Encounter type: initial encounter Indwelling urinary catheter type: indwelling urethral catheter Qualified Code(s): T83.511A - Infection and inflammatory reaction due to indwelling urethral catheter, initial encounter; N39.0 - Urinary tract infection, site not specified (2) HTN (hypertension) Hypertension type: essential hypertension Qualified Code(s): I10 - Essential (primary) hypertension
--- NOTE | 2021-07-20 14:30 | XRay Report ---
XR chest 1V portable CLINICAL HISTORY: chf TECHNIQUE: Single frontal radiograph of the chest was obtained. Comparison: Comparison is made to chest one view 07/09/2021 FINDINGS: Exam is limited by underpenetration. Cardiomegaly is noted. Prominence and cephalization of the vascu lature is seen. Small bilateral pleural effusions cannot be excluded due to underpenetration. IMPRESSION: Likely mild pulmonary edema. Exam is limited by underpenetration. ACT 112: Negative or not required by law. Electronically signed by: Armand Tobar M.D. 07/20/2021 2:28 PM
[2021-07-20] MEDS: WARFARIN SOD 10 MG TAB PO SCH (16:28)
[2021-07-20] MEDS: MELATONIN 3 MG TAB PO PRN (20:32)
[2021-07-20] MEDS: INSULIN GLARGINE SOLOSTAR 100 UNITS/ML 3 ML PEN SC SCH (21:51)
[2021-07-21] MEDS: traMADol HCL 50 MG TABLET PO PRN ×4 (01:38→19:51)
[2021-07-21] MEDS: PANTOprazole 40 MG TAB PO SCH (05:52)
[2021-07-21 06:29] LABS: INR 1.3 (0.9-1.1)
[2021-07-21 06:53] LABS: BUN Creatinine Ratio 15.7 (10-20); Calcium 9.2 mg/dl (8.5-10.1); Est GFR (African American) 77.5 ml/min; Est GFR (Non-African American) 66.9 ml/min; Potassium 4.1 mmol/L (3.5-5.1)
[2021-07-21] MEDS: INSULIN ASPART 100 UNITS/ML 3 ML PEN SC SCH ×4 (08:53→21:45)
[2021-07-21] MEDS: FUROSEMIDE 40 MG/4 ML VIAL IV SCH ×2 (08:57→21:52)
[2021-07-21] MEDS: FLUTICASONE/VILANTEROL 100/25MCG 14 PUFFS/INHALER INH SCH (09:03)
[2021-07-21] MEDS: FLUTICASONE PROPIONATE NA SPR 16 GM BTL SCH (09:03)
[2021-07-21] MEDS: UMECLIDINIUM BROMIDE 62.5MCG/BLISTER 7 PUFFS/INHALER INH SCH (09:04)
[2021-07-21] MEDS: POTASSIUM CHLORIDE CRTAB 20 MEQ TABCR PO SCH ×2 (09:08→21:30)
[2021-07-21] MEDS: DULoxetine HCL 60 MG CAP PO SCH (09:08)
[2021-07-21] MEDS: buprenorphine HCL 8 MG SUBL SL SCH ×3 (09:08→21:39)
[2021-07-21] MEDS: DOCUSATE SODIUM 100 MG CAP PO SCH ×2 (09:08→21:38)
[2021-07-21] MEDS: GABAPENTIN 800 MG TAB PO SCH ×3 (09:08→21:30)
[2021-07-21] MEDS: ASPIRIN 81 MG ECTAB PO SCH (09:08)
[2021-07-21] MEDS: ADVANCED PROBIOTIC 1250 MG CAPSULE PO SCH ×3 (09:08→21:30)
[2021-07-21] MEDS: TAMSULOSIN HCL 0.4 MG CAP PO SCH (09:09)
[2021-07-21] MEDS: FAMOTIDINE 20 MG TAB PO SCH (09:09)
[2021-07-21] MEDS: ISOSORBIDE MONO EXTENDED REL 30 MG TABCR PO SCH (09:09)
[2021-07-21] MEDS: FINASTERIDE 5 MG TAB PO SCH (09:09)
[2021-07-21] MEDS: SPIRONOLACTONE 25 MG TAB PO SCH (09:09)
[2021-07-21] MEDS: METOPROLOL SUCC 25MG EXT REL TAB PO SCH ×2 (09:09→21:30)
[2021-07-21] MEDS: FOLIC ACID 1 MG TAB PO SCH (09:09)
[2021-07-21] MEDS: LORazepam 0.5 MG TAB PO PRN ×2 (09:09→21:38)
[2021-07-21] MEDS: NICOTINE 21 MG/24 HR TDSY TD SCH (09:13)
[2021-07-21] MEDS: ENOXAPARIN INJ 40 MG/0.4 ML SYR SQ SCH ×2 (09:13→21:31)
[2021-07-21] MEDS: POLYETHYLENE (MIRALAX) 17 GM PACK PO SCH (09:20)
[2021-07-21] MEDS: ATORVASTATIN 40 MG TAB PO SCH (12:20)
--- NOTE | 2021-07-21 16:31 | Hospitalist Progress Note ---
Date of Service July 21, 2021 Assessment & Plan (1) Acute on chronic diastolic heart failure: Plan: Presented with about 20 pounds weight gain in a few days with associated shortness of breath and increasing leg swelling Noted to have chest x-ray evidence of CHF Repeat CXR Cardiomegaly without evidence of pulmonary edema. Diuresing well-cumulative balance is [phone] as of 07/14/2021 Needs follow-up with cardiology upon discharge Volume Status improved IV Lasix transitioned to PO Lasix changed back to IV for better diuresis as he has been complaining of more wheezing and bloated Cumulative fluid losses 50 L since admission Complains to have bloated and also wheezing Will get chest [id number] congestion Does not want to comply with fluid restriction and wants to have around 2400 mL of fluid in 24 hours Warned against more shortness of breath and leg swelling Bright red blood per rectum Likely secondary to hemorrhoids Hemoglobin remained stable and will monitor Hemoccult has been negative and INR is not yet therapeutic Reassured-no more blood per rectum and hemoglobin remains stable Hemoccult has been negative-no more bleeding and hemoglobin remains stable (2) Chronic pain disorder: Plan: Has been on Ultram He has been on 100 mg Ultram every 6 hourly as needed He cyclobenzaprine has been discontinued because of severe interaction Continue current meds Has been complaining of increasing pain in in the knees, ankles and back We will consult pain therapist for further guidance on pain medications Appreciate pain therapy input and recommendation No narcotic pain medication as long as the patient is on Suboxone His morning Suboxone was given orally instead of sublingual No additional doses were prescribed after discussion with the pharmacist No additional narcotics were given He will have Suboxone doses as advised (3) COPD exacerbation: Plan: Chronic respiratory failure with hypoxia--uses 4 L at bedtime and intermittently H/O COPD and may have mild exacerbation Continue with nebulized bronchodilator and inhalers Minimal wheezing on examination but no shortness of breath Minimal wheezing may be secondary to COPD Has minimal wheezing but does not require any further treatment for that Minimal wheezing secondary to COPD but no acute exacerbation (4) Obesity hypoventilation syndrome: Plan: BMI 60 (5) Urinary tract infection associated with catheterization of urinary tract: Plan: H/O Indwelling Lloyd catheter with recurrent urinary tract infection UTI:POA Likely secondary to chronic Lloyd catheter Urine culture growing , Enterococcus faecalis, nonfermenter species Changed Lloyd catheter Continue Zosyn >> Transition to Levaquin, ampicillin on 07/10 Unasyn and Bactrim have been discontinued Will get repeat UA examination and culture to make sure there is no infection Repeat UA has been negative We will repeat UA prior to discharge (6) DM type 2 (diabetes mellitus, type 2): Plan: We will continue with his usual insulin at home SSI (7) Anticoagulated on Coumadin: Plan: H/O PE and DVT INR Subtherapeutic Continue Coumadin Monitor INR:1.2 on 07/14/2021 Increase Coumadin to 7.5mg today Lovenox SQ until INR is therapeutic We will check INR tomorrow again-1.2 on 07/17/2021 Surprisingly INR remains low at 1.2 Will increase Coumadin to 10 mg-in spite of getting Coumadin 10 mg a day his INR remains subtherapeutic at 1.2 Advised the nurse to make sure that he has been taking Coumadin INR is minimally change at 1.3-we will continue 10 mg of Coumadin daily (8) HTN (hypertension): Plan: Blood pressure is stable Continue current medications Plan: BPH Continue current medicine DVT Px: Coumadin Lovenox SQ till INR therapeutic CODE STATUS Full Code Admission and Anticipated Discharge Date Admission Date: July 05, 2021 Subjective 07/14/2021 The patient was seen and examined in medical telemetry unit He has been waiting to be placed Complains to have some wheezing especially when ambulate Remains weak and lethargic July 15, 2021 The patient was seen and examined in medical floor He remained stable but complains more pain in the knees and asking for pain medication 07/16/2021 The patient was seen and examined in medical floor He complains of more pain in both the knees, ankle and at the back He cannot participate in physical therapy without adequate pain medications Has wheezing but denies any shortness of breath at rest No fever and no chills 07/17/2021 The patient was seen and examined in medical floor He complains to have increasing pain in the knees ankles and back He also has problem with his inhalers and believes that the device is being used for other patients too Still has minimal wheezing 07/18/2021 The patient was seen and examined in medical floor He has been stable but he still complains of pain in the knee joint and asking for as needed tramadol He was seen by pain therapist and is strongly advised not to give any more narcotic pain medications 07/19/2021 The patient was seen and examined in medical floor He has had bright red blood per rectum yesterday and so far x2 He complains to have more pain involving the right upper quadrant and neck area Still has wheezing but no shortness of breath at rest and saturating normally on room air 07/20/2021 The patient was seen and examined in medical floor He complains of wheezing and his INR remains subtherapeutic at 1.2 He mentions that he has been taking Coumadin regularly and has not been eating any diet that will hamper absorption Denies any other symptom 07/21/2021 The patient was seen and examined in medical floor He was given his Suboxone oral instead of sublingual this morning He was complaining of more pain and asking for additional pain medications which was denied His INR remains low at 1.3 He cannot take Eliquis because of his weight and the cart avoid limit is 120 kg Review of Systems Review of Systems: All systems reviewed and are unremarkable except as noted below Musculoskeletal: Ongoing pain in the leg and back. Physical Exam Physical Exam: Lying in the bed with minimal wheezing and shortness of breath Constitutional: well developed, well nourished and + morbidly obese; not ill appearing Eyes: PERRL, conjunctivae normal, anicteric sclerae ENMT: external ear and nose normal, oropharynx normal Neck: trachea midline, no thyromegaly Respiratory: + respiratory distress (Minimal distress at rest), + cough and + audible wheezes Auscultation: + diminished lung sounds, + crackles (Minimal crackles at the bases) and + wheezes (Mild wheezing all over-improves with cough) Cardiovascular: Rate/Rhythm: regular rate and regular rhythm; not tachycardic Heart Sounds: normal S1 and normal S2; no murmur Extremities: + edema (1+ edema bilaterally with chronic skin changes) Gastrointestinal (Abdomen): Inspection/Auscultation: + abdomen distended and normal bowel sounds Percussion/Palpation: abdomen soft; abdomen nontender Musculoskeletal: No acute arthritis in any joint Neurologic: Alert, 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 Lymphatic: no cervical or axillary lymphadenopathy Results & Data Results & Data ([facility]) Vital Signs (Past 12 Hours) Vital Signs Temp Pulse Resp BP Pulse Ox 07/21/21 07:58 36.5 C 63 16 147/70 H 97 Laboratory Results [facility] 07/21/21 05:19 Sodium 137 Potassium 4.1 Chloride 101 Carbon Dioxide 37 H BUN 19 H Creatinine 1.24 Glucose 128 H Calcium 9.2 Medications Administered Current Inpatient Medications Albuterol (Albuterol Hfa 8 Gm Inhaler) 2 puffs INH Q4 PRN PRN Reason: Dyspnea Stop: 08/04/21 06:04 Last Admin: 07/15/21 19:32 Dose: 2 puffs Documented by: Albuterol (Albut/Ipratrop 3mg/0.5mg Neb 3 Ml Vial) 3 ml INH Q6H PRN PRN Reason: Shortness Of Breath Or Wheezing Stop: 08/04/21 06:04 Aspirin (Aspirin 81 Mg Ectab) 81 mg PO QAM [facility] Stop: 08/04/21 08:59 Last Admin: 07/21/21 09:08 Dose: 81 mg Documented by: Atorvastatin Calcium (Atorvastatin 40 Mg Tab) 80 mg PO QDL [facility] Stop: 08/04/21 11:29 Last Admin: 07/21/21 12:20 Dose: 80 mg Documented by: Buprenorphine HCl (Buprenorphine Hcl 8 Mg Subl) 8 mg SL TID [facility] Stop: 08/04/21 08:59 Last Admin: 07/21/21 12:19 Dose: 8 mg Documented by: Cyclobenzaprine HCl (Cyclobenzaprine Hcl 10 Mg Tab) 10 mg PO BID PRN PRN Reason: Muscle Spasm Stop: 08/04/21 06:04 Last Admin: 07/06/21 09:02 Dose: 10 mg Documented by: Diclofenac Sodium (Diclofenac Sod 1% Gel 100 Gm Tube) 2 gm EXT QID PRN PRN Reason: knee pain Stop: 08/12/21 08:59 Last Admin: 07/17/21 21:09 Dose: 2 gm Documented by: Docusate Sodium (Docusate Sodium 100 Mg Cap) 100 mg PO BID [facility] Stop: 08/04/21 08:59 Last Admin: 07/21/21 09:08 Dose: 100 mg Documented by: Duloxetine HCl (Duloxetine Hcl 60 Mg Cap) 60 mg PO DAILY [facility] Stop: 08/04/21 08:59 Last Admin: 07/21/21 09:08 Dose: 60 mg Documented by: Enoxaparin Sodium (Enoxaparin Inj 40 Mg/0.4 Ml Syr) 40 mg SQ Q12H [facility] Stop: 08/09/21 09:29 Last Admin: 07/21/21 09:13 Dose: 40 mg Documented by: Ergocalciferol (Ergocalciferol 50,000 Units 1250 Mcg Cap) 50,000 units PO Fr@0900 [facility] Stop: 08/10/21 08:59 Last Admin: 07/18/21 09:31 Dose: 50,000 units Documented by: Famotidine (Famotidine 20 Mg Tab) 20 mg PO DAILY [facility] Stop: 08/04/21 08:59 Last Admin: 07/21/21 09:09 Dose: 20 mg Documented by: Finasteride (Finasteride 5 Mg Tab) 5 mg PO QAM [facility] Stop: 08/04/21 08:59 Last Admin: 07/21/21 09:09 Dose: 5 mg Documented by: Fluticasone Propionate (Fluticasone Propionate Na Spr 16 Gm Btl) 2 sprays NA DAILY [facility] Stop: 08/04/21 08:59 Last Admin: 07/21/21 09:03 Dose: 2 sprays Documented by: Fluticasone/Vilanterol (Fluticasone/Vilanterol 100/25mcg 14 Puffs/Inhaler) 1 puffs INH DAILY [facility] Stop: 08/04/21 08:59 Last Admin: 07/21/21 09:03 Dose: 1 puffs Documented by: Folic Acid (Folic Acid 1 Mg Tab) 1 mg PO QAM [facility] Stop: 08/04/21 08:59 Last Admin: 07/21/21 09:09 Dose: 1 mg Documented by: Furosemide (Furosemide 40 Mg/4 Ml Vial) 40 mg IV BID [facility] Stop: 08/15/21 20:59 Last Admin: 07/21/21 08:57 Dose: 40 mg Documented by: Gabapentin (Gabapentin 800 Mg Tab) 800 mg PO TID [facility] Stop: 08/04/21 08:59 Last Admin: 07/21/21 13:03 Dose: 800 mg Documented by: Guaifenesin/Dextromethorphan (Guaifenesin/Dextrom Syrup 200mg/20mg 10ml Udc) 10 ml PO Q6H PRN PRN Reason: Cough Stop: 08/07/21 16:40 Last Admin: 07/09/21 03:22 Dose: 10 ml Documented by: Insulin Aspart (Insulin Aspart 100 Units/Ml 3 Ml Pen) 0 units SC ACHS [facility] Stop: 08/04/21 07:29 Last Admin: 07/21/21 13:00 Dose: 8 units Documented by: Insulin Glargine (Insulin Glargine Solostar 100 Units/Ml 3 Ml Pen) 50 units SC HS [facility] Stop: 08/04/21 20:59 Last Admin: 07/20/21 21:51 Dose: 50 units Documented by: Isosorbide Mononitrate (Isosorbide [place] Extended Rel 30 Mg Tabcr) 30 mg PO DAILY [facility] Stop: 08/04/21 08:59 Last Admin: 07/21/21 09:09 Dose: 30 mg Documented by: Lactobacillus Acidoph/Casei/Rhamnos (Advanced Probiotic 1250 Mg Capsule) 2 cap PO TID [facility] Stop: 08/04/21 08:59 Last Admin: 07/21/21 13:03 Dose: 2 cap Documented by: Lorazepam (Lorazepam 0.5 Mg Tab) 0.5 mg PO Q8 PRN PRN Reason: Anxiety Stop: 08/04/21 06:04 Last Admin: 07/21/21 09:09 Dose: 0.5 mg Documented by: Melatonin (Melatonin 3 Mg Tab) 9 mg PO HS PRN PRN Reason: Sleep Stop: 08/05/21 23:06 Last Admin: 07/20/21 20:32 Dose: 9 mg Documented by: Methenamine Hippurate (Methenamine Hippurate 1 Gm Tab) 1 gm PO DAILY [facility] Stop: 08/04/21 08:59 Last Admin: 07/12/21 08:31 Dose: 1 gm Documented by: Metoprolol Succinate (Metoprolol Succ 25mg Ext Rel Tab) 75 mg PO BID [facility] Stop: 08/04/21 08:59 Last Admin: 07/21/21 09:09 Dose: 75 mg Documented by: Miscellaneous (Remove Nicoderm Patch) 1 ea N/A DAILY@0859 [facility] Stop: 08/04/21 08:58 Last Admin: 07/21/21 09:16 Dose: 1 ea Documented by: Nicotine (Nicotine 21 Mg/24 Hr Tdsy) 21 mg TD DAILY [facility] Stop: 08/04/21 08:59 Last Admin: 07/21/21 09:13 Dose: 21 mg Documented by: Nitroglycerin (Nitroglycerin Sl 0.4 Mg/Tab Tab) 0.4 mg SL UD PRN PRN Reason: Chest Pain Stop: 08/04/21 06:04 Nystatin (Nystatin Powder 15gm Btl) 1 appln EXT TID PRN PRN Reason: Skin Irritation Stop: 08/04/21 06:04 Ondansetron HCl (Ondansetron Inj 2 Mg/Ml 2 Ml Vial) 4 mg IV Q6H PRN PRN Reason: Nausea Stop: 08/04/21 06:04 Ondansetron HCl (Ondansetron 4 Mg Od Tab) 4 mg PO Q8 PRN PRN Reason: Nausea And Vomiting Stop: 08/04/21 07:09 Pantoprazole Sodium (Pantoprazole 40 Mg Tab) 40 mg PO DAILYBB [facility] Stop: 08/04/21 07:29 Last Admin: 07/21/21 05:52 Dose: 40 mg Documented by: Phenazopyridine HCl (Phenazopyridine Hcl 100 Mg Tab) 100 mg PO TID PRN PRN Reason: Dysuria Stop: 08/09/21 11:05 Last Admin: 07/14/21 14:11 Dose: 100 mg Documented by: Polyethylene Glycol (Polyethylene (Miralax) 17 Gm Pack) 17 gm PO DAILY PRN PRN Reason: Constipation Stop: 08/04/21 06:04 Polyethylene Glycol (Polyethylene (Miralax) 17 Gm Pack) 17 gm PO QAM [facility] Stop: 08/04/21 08:59 Last Admin: 07/21/21 09:20 Dose: 17 gm Documented by: Potassium Chloride (Potassium Chloride Crtab 20 Meq Tabcr) 20 meq PO BID [facility] Stop: 08/04/21 08:59 Last Admin: 07/21/21 09:08 Dose: 20 meq Documented by: Sennosides (Senna 8.6 Mg Tab) 8.6 mg PO DAILY PRN PRN Reason: Constipation Stop: 08/04/21 06:04 Last Admin: 07/14/21 08:45 Dose: 8.6 mg Documented by: Spironolactone (Spironolactone 25 Mg Tab) 25 mg PO QAM [facility] Stop: 08/04/21 08:59 Last Admin: 07/21/21 09:09 Dose: 25 mg Documented by: Tamsulosin HCl (Tamsulosin Hcl 0.4 Mg Cap) 0.4 mg PO QAM [facility] Stop: 08/04/21 08:59 Last Admin: 07/21/21 09:09 Dose: 0.4 mg Documented by: Tramadol HCl (Tramadol Hcl 50 Mg Tablet) 100 mg PO Q6 PRN PRN Reason: Pain Stop: 08/04/21 06:04 Last Admin: 07/21/21 13:44 Dose: 100 mg Documented by: Umeclidinium [place] (Umeclidinium [place] 62.5mcg/Blister 7 Puffs/Inhaler) 1 puffs INH QAM [facility] Stop: 08/04/21 08:59 Last Admin: 07/21/21 09:04 Dose: 1 puffs Documented by: Warfarin Sodium (Warfarin Sod 10 Mg Tab) 10 mg PO DAILY@1600 [facility] Stop: 08/18/21 15:59 Last Admin: 07/20/21 16:28 Dose: 10 mg Documented by: (1) Urinary tract infection associated with catheterization of urinary tract Encounter type: initial encounter Indwelling urinary catheter type: indwelling urethral catheter Qualified Code(s): T83.511A - Infection and inflammatory reaction due to indwelling urethral catheter, initial encounter; N39.0 - Urinary tract infection, site not specified (2) HTN (hypertension) Hypertension type: essential hypertension Qualified Code(s): I10 - Essential (primary) hypertension
[2021-07-21] MEDS: WARFARIN SOD 10 MG TAB PO SCH (16:34)
[2021-07-21] MEDS: INSULIN GLARGINE SOLOSTAR 100 UNITS/ML 3 ML PEN SC SCH (21:36)
[2021-07-21] MEDS: MELATONIN 3 MG TAB PO PRN (21:39)
[2021-07-22] MEDS: traMADol HCL 50 MG TABLET PO PRN ×4 (02:02→20:31)
[2021-07-22] MEDS: PANTOprazole 40 MG TAB PO SCH (05:41)
[2021-07-22 06:44] LABS: INR 1.5 (0.9-1.1); Prothrombin Time 14.8 Seconds (9.0-12.0)
[2021-07-22] MEDS: INSULIN ASPART 100 UNITS/ML 3 ML PEN SC SCH ×4 (09:40→20:32)
[2021-07-22] MEDS: DOCUSATE SODIUM 100 MG CAP PO SCH ×2 (09:44→21:42)
[2021-07-22] MEDS: ISOSORBIDE MONO EXTENDED REL 30 MG TABCR PO SCH (09:44)
[2021-07-22] MEDS: SPIRONOLACTONE 25 MG TAB PO SCH (09:44)
[2021-07-22] MEDS: POTASSIUM CHLORIDE CRTAB 20 MEQ TABCR PO SCH ×2 (09:44→21:42)
[2021-07-22] MEDS: TAMSULOSIN HCL 0.4 MG CAP PO SCH (09:44)
[2021-07-22] MEDS: buprenorphine HCL 8 MG SUBL SL SCH ×3 (09:44→21:41)
[2021-07-22] MEDS: METOPROLOL SUCC 25MG EXT REL TAB PO SCH ×2 (09:45→21:42)
[2021-07-22] MEDS: ASPIRIN 81 MG ECTAB PO SCH (09:45)
[2021-07-22] MEDS: GABAPENTIN 800 MG TAB PO SCH ×3 (09:45→21:44)
[2021-07-22] MEDS: FOLIC ACID 1 MG TAB PO SCH (09:45)
[2021-07-22] MEDS: POLYETHYLENE (MIRALAX) 17 GM PACK PO SCH (09:45)
[2021-07-22] MEDS: ADVANCED PROBIOTIC 1250 MG CAPSULE PO SCH ×3 (09:45→21:44)
[2021-07-22] MEDS: FINASTERIDE 5 MG TAB PO SCH (09:45)
[2021-07-22] MEDS: DULoxetine HCL 60 MG CAP PO SCH (09:45)
[2021-07-22] MEDS: FUROSEMIDE 40 MG/4 ML VIAL IV SCH ×2 (09:46→21:51)
[2021-07-22] MEDS: NICOTINE 21 MG/24 HR TDSY TD SCH (09:46)
[2021-07-22] MEDS: FAMOTIDINE 20 MG TAB PO SCH (09:54)
[2021-07-22] MEDS: LORazepam 0.5 MG TAB PO PRN ×2 (09:54→21:41)
[2021-07-22] MEDS: UMECLIDINIUM BROMIDE 62.5MCG/BLISTER 7 PUFFS/INHALER INH SCH (09:55)
[2021-07-22] MEDS: ENOXAPARIN INJ 40 MG/0.4 ML SYR SQ SCH ×2 (09:55→21:44)
[2021-07-22] MEDS: FLUTICASONE PROPIONATE NA SPR 16 GM BTL SCH (09:55)
[2021-07-22] MEDS: FLUTICASONE/VILANTEROL 100/25MCG 14 PUFFS/INHALER INH SCH (09:55)
[2021-07-22] MEDS: ATORVASTATIN 40 MG TAB PO SCH (12:14)
--- NOTE | 2021-07-22 16:28 | Hospitalist Progress Note ---
Date of Service July 22, 2021 Assessment & Plan (1) Acute on chronic diastolic heart failure: Plan: Presented with about 20 pounds weight gain in a few days with associated shortness of breath and increasing leg swelling Noted to have chest x-ray evidence of CHF Repeat CXR Cardiomegaly without evidence of pulmonary edema. Diuresing well-cumulative balance is [phone] as of 07/14/2021 Needs follow-up with cardiology upon discharge Volume Status improved IV Lasix transitioned to PO Lasix changed back to IV for better diuresis as he has been complaining of more wheezing and bloated Cumulative fluid losses 50 L since admission Complains to have bloated and also wheezing Will get chest [id number] congestion Does not want to comply with fluid restriction and wants to have around 2400 mL of fluid in 24 hours Warned against more shortness of breath and leg swelling Denies any shortness of breath and/or palpitation Bright red blood per rectum Likely secondary to hemorrhoids Hemoglobin remained stable and will monitor Hemoccult has been negative and INR is not yet therapeutic Reassured-no more blood per rectum and hemoglobin remains stable Hemoccult has been negative-no more bleeding and hemoglobin remains stable (2) Chronic pain disorder: Plan: Has been on Ultram He has been on 100 mg Ultram every 6 hourly as needed He cyclobenzaprine has been discontinued because of severe interaction Continue current meds Has been complaining of increasing pain in in the knees, ankles and back We will consult pain therapist for further guidance on pain medications Appreciate pain therapy input and recommendation No narcotic pain medication as long as the patient is on Suboxone No more narcotics pain medications will be given His morning Suboxone was given orally instead of sublingual No additional doses were prescribed after discussion with the pharmacist No additional narcotics were given He will have Suboxone doses as advised (3) COPD exacerbation: Plan: Chronic respiratory failure with hypoxia--uses 4 L at bedtime and intermittently H/O COPD and may have mild exacerbation Continue with nebulized bronchodilator and inhalers Minimal wheezing on examination but no shortness of breath Minimal wheezing may be secondary to COPD Has minimal wheezing but does not require any further treatment for that Minimal wheezing secondary to COPD but no acute exacerbation Has minimal wheezing and there is accepted given his COPD (4) Obesity hypoventilation syndrome: Plan: BMI 60 (5) Urinary tract infection associated with catheterization of urinary tract: Plan: H/O Indwelling Lloyd catheter with recurrent urinary tract infection UTI:POA Likely secondary to chronic Lloyd catheter Urine culture growing , Enterococcus faecalis, nonfermenter species Changed Lloyd catheter Continue Zosyn >> Transition to Levaquin, ampicillin on 07/10 Unasyn and Bactrim have been discontinued Will get repeat UA examination and culture to make sure there is no infection Repeat UA has been negative We will repeat UA prior to discharge (6) DM type 2 (diabetes mellitus, type 2): Plan: We will continue with his usual insulin at home SSI (7) Anticoagulated on Coumadin: Plan: H/O PE and DVT INR Subtherapeutic Continue Coumadin Monitor INR:1.2 on 07/14/2021 Increase Coumadin to 7.5mg today Lovenox SQ until INR is therapeutic We will check INR tomorrow again-1.2 on 07/17/2021 Surprisingly INR remains low at 1.2 Will increase Coumadin to 10 mg-in spite of getting Coumadin 10 mg a day his INR remains subtherapeutic at 1.2 Advised the nurse to make sure that he has been taking Coumadin Has been getting Coumadin 10 mg daily and the INR is 1.5 as of 07/22/2021 (8) HTN (hypertension): Plan: Blood pressure is stable Continue current medications Plan: BPH Continue current medicine DVT Px: Coumadin Lovenox SQ till INR therapeutic CODE STATUS Full Code Admission and Anticipated Discharge Date Admission Date: July 05, 2021 Subjective 07/14/2021 The patient was seen and examined in medical telemetry unit He has been waiting to be placed Complains to have some wheezing especially when ambulate Remains weak and lethargic July 15, 2021 The patient was seen and examined in medical floor He remained stable but complains more pain in the knees and asking for pain medication 07/16/2021 The patient was seen and examined in medical floor He complains of more pain in both the knees, ankle and at the back He cannot participate in physical therapy without adequate pain medications Has wheezing but denies any shortness of breath at rest No fever and no chills 07/17/2021 The patient was seen and examined in medical floor He complains to have increasing pain in the knees ankles and back He also has problem with his inhalers and believes that the device is being used for other patients too Still has minimal wheezing 07/18/2021 The patient was seen and examined in medical floor He has been stable but he still complains of pain in the knee joint and asking for as needed tramadol He was seen by pain therapist and is strongly advised not to give any more narcotic pain medications 07/19/2021 The patient was seen and examined in medical floor He has had bright red blood per rectum yesterday and so far x2 He complains to have more pain involving the right upper quadrant and neck area Still has wheezing but no shortness of breath at rest and saturating normally on room air 07/20/2021 The patient was seen and examined in medical floor He complains of wheezing and his INR remains subtherapeutic at 1.2 He mentions that he has been taking Coumadin regularly and has not been eating any diet that will hamper absorption Denies any other symptom 07/21/2021 The patient was seen and examined in medical floor He was given his Suboxone oral instead of sublingual this morning He was complaining of more pain and asking for additional pain medications which was denied His INR remains low at 1.3 He cannot take Eliquis because of his weight and the cart avoid limit is 120 kg 07/22/2021 The patient was seen and examined in medical floor He denies any significant symptoms today He has been drinking enough fluid and is not following the fluid restriction pr otocol Denies any chest pain and/or palpitation Review of Systems Review of Systems: All systems reviewed and are unremarkable except as noted below Musculoskeletal: Ongoing pain in the leg and back. Physical Exam Physical Exam: Lying in the bed with minimal wheezing and shortness of breath Constitutional: well developed, well nourished and + morbidly obese; not ill appearing Eyes: PERRL, conjunctivae normal, anicteric sclerae ENMT: external ear and nose normal, oropharynx normal Neck: trachea midline, no thyromegaly Respiratory: + respiratory distress (Minimal distress at rest), + cough and + audible wheezes Auscultation: + diminished lung sounds, + crackles (Minimal crackles at the bases) and + wheezes (Mild wheezing all over-improves with cough) Cardiovascular: Rate/Rhythm: regular rate and regular rhythm; not tachycardic Heart Sounds: normal S1 and normal S2; no murmur Extremities: + edema (1+ edema bilaterally with chronic skin changes) Gastrointestinal (Abdomen): Inspection/Auscultation: + abdomen distended and normal bowel sounds Percussion/Palpation: abdomen soft; abdomen nontender Musculoskeletal: Acute arthritis in any joint Neurologic: Alert, 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. Generally weak but does not have any focal neurological deficit Lymphatic: no cervical or axillary lymphadenopathy Results & Data Results & Data ([facility]) Vital Signs (Past 12 Hours) Vital Signs Temp Pulse Resp BP Pulse Ox 07/22/21 15:44 36.5 C 65 16 143/72 H 94 07/22/21 07:58 36.5 C 58 L 16 132/71 100 Laboratory Results INR is 1.5 today Medications Administered Current Inpatient Medications Albuterol (Albuterol Hfa 8 Gm Inhaler) 2 puffs INH Q4 PRN PRN Reason: Dyspnea Stop: 08/04/21 06:04 Last Admin: 07/15/21 19:32 Dose: 2 puffs Documented by: Albuterol (Albut/Ipratrop 3mg/0.5mg Neb 3 Ml Vial) 3 ml INH Q6H PRN PRN Reason: Shortness Of Breath Or Wheezing Stop: 08/04/21 06:04 Aspirin (Aspirin 81 Mg Ectab) 81 mg PO QAM [facility] Stop: 08/04/21 08:59 Last Admin: 07/22/21 09:45 Dose: 81 mg Documented by: Atorvastatin Calcium (Atorvastatin 40 Mg Tab) 80 mg PO QDL [facility] Stop: 08/04/21 11:29 Last Admin: 07/22/21 12:14 Dose: 80 mg Documented by: Buprenorphine HCl (Buprenorphine Hcl 8 Mg Subl) 8 mg SL TID [facility] Stop: 08/04/21 08:59 Last Admin: 07/22/21 14:45 Dose: 8 mg Documented by: Cyclobenzaprine HCl (Cyclobenzaprine Hcl 10 Mg Tab) 10 mg PO BID PRN PRN Reason: Muscle Spasm Stop: 08/04/21 06:04 Last Admin: 07/06/21 09:02 Dose: 10 mg Documented by: Diclofenac Sodium (Diclofenac Sod 1% Gel 100 Gm Tube) 2 gm EXT QID PRN PRN Reason: knee pain Stop: 08/12/21 08:59 Last Admin: 07/17/21 21:09 Dose: 2 gm Documented by: Docusate Sodium (Docusate Sodium 100 Mg Cap) 100 mg PO BID [facility] Stop: 08/04/21 08:59 Last Admin: 07/22/21 09:44 Dose: 100 mg Documented by: Duloxetine HCl (Duloxetine Hcl 60 Mg Cap) 60 mg PO DAILY EMPERATRIZ Stop: 08/04/21 08:59 Last Admin: 07/22/21 09:45 Dose: 60 mg Documented by: Enoxaparin Sodium (Enoxaparin Inj 40 Mg/0.4 Ml Syr) 40 mg SQ Q12H EMPERATRIZ Stop: 08/09/21 09:29 Last Admin: 07/22/21 09:55 Dose: 40 mg Documented by: Ergocalciferol (Ergocalciferol 50,000 Units 1250 Mcg Cap) 50,000 units PO Fr@0900 EMPERATRIZ Stop: 08/10/21 08:59 Last Admin: 07/18/21 09:31 Dose: 50,000 units Documented by: Famotidine (Famotidine 20 Mg Tab) 20 mg PO DAILY EMPERATRIZ Stop: 08/04/21 08:59 Last Admin: 07/22/21 09:54 Dose: 20 mg Documented by: Finasteride (Finasteride 5 Mg Tab) 5 mg PO QAM EMP[facility]ATRIZ Stop: 08/04/21 08:59 Last Admin: 07/22/21 09:45 Dose: 5 mg Documented by: Fluticasone Propionate (Fluticasone Propionate Na Spr 16 Gm Btl) 2 sprays NA DAILY EMP[facility]ATRIZ Stop: 08/04/21 08:59 Last Admin: 07/22/21 09:55 Dose: 2 sprays Documented by: Fluticasone/Vilanterol (Fluticasone/Vilanterol 100/25mcg 14 Puffs/Inhaler) 1 puffs INH DAILY EMPERATRIZ Stop: 08/04/21 08:59 Last Admin: 07/22/21 09:55 Dose: 1 puffs Documented by: Folic Acid (Folic Acid 1 Mg Tab) 1 mg PO QAM EMPERATRIZ Stop: 08/04/21 08:59 Last Admin: 07/22/21 09:45 Dose: 1 mg Documented by: Furosemide (Furosemide 40 Mg/4 Ml Vial) 40 mg IV BID EMPERATRIZ Stop: 08/15/21 20:59 Last Admin: 07/22/21 09:46 Dose: 40 mg Documented by: Gabapentin (Gabapentin 800 Mg Tab) 800 mg PO TID EMPERATRIZ Stop: 08/04/21 08:59 Last Admin: 07/22/21 14:45 Dose: 800 mg Documented by: Guaifenesin/Dextromethorphan (Guaifenesin/Dextrom Syrup 200mg/20mg 10ml Udc) 10 ml PO Q6H PRN PRN Reason: Cough Stop: 08/07/21 16:40 Last Admin: 07/09/21 03:22 Dose: 10 ml Documented by: Insulin Aspart (Insulin Aspart 100 Units/Ml 3 Ml Pen) 0 units SC ACHS EMPERATRIZ Stop: 08/04/21 07:29 Last Admin: 07/22/21 13:03 Dose: 7 units Documented by: Insulin Glargine (Insulin Glargine Solostar 100 Units/Ml 3 Ml Pen) 50 units SC HS [facility] Stop: 08/04/21 20:59 Last Admin: 07/21/21 21:36 Dose: 50 units Documented by: Isosorbide Mononitrate (Isosorbide [place] Extended Rel 30 Mg Tabcr) 30 mg PO DAILY [facility] Stop: 08/04/21 08:59 Last Admin: 07/22/21 09:44 Dose: 30 mg Documented by: Lactobacillus Acidoph/Casei/Rhamnos (Advanced Probiotic 1250 Mg Capsule) 2 cap PO TID [facility] Stop: 08/04/21 08:59 Last Admin: 07/22/21 14:45 Dose: 2 cap Documented by: Lorazepam (Lorazepam 0.5 Mg Tab) 0.5 mg PO Q8 PRN PRN Reason: Anxiety Stop: 08/04/21 06:04 Last Admin: 07/22/21 09:54 Dose: 0.5 mg Documented by: Melatonin (Melatonin 3 Mg Tab) 9 mg PO HS PRN PRN Reason: Sleep Stop: 08/05/21 23:06 Last Admin: 07/21/21 21:39 Dose: 9 mg Documented by: Methenamine Hippurate (Methenamine Hippurate 1 Gm Tab) 1 gm PO DAILY [facility] Stop: 08/04/21 08:59 Last Admin: 07/12/21 08:31 Dose: 1 gm Documented by: Metoprolol Succinate (Metoprolol Succ 25mg Ext Rel Tab) 75 mg PO BID [facility] Stop: 08/04/21 08:59 Last Admin: 07/22/21 09:45 Dose: 75 mg Documented by: Miscellaneous (Remove Nicoderm Patch) 1 ea N/A DAILY@0859 [facility] Stop: 08/04/21 08:58 Last Admin: 07/22/21 09:43 Dose: 1 ea Documented by: Nicotine (Nicotine 21 Mg/24 Hr Tdsy) 21 mg TD DAILY [facility] Stop: 08/04/21 08:59 Last Admin: 07/22/21 09:46 Dose: 21 mg Documented by: Nitroglycerin (Nitroglycerin Sl 0.4 Mg/Tab Tab) 0.4 mg SL UD PRN PRN Reason: Chest Pain Stop: 08/04/21 06:04 Nystatin (Nystatin Powder 15gm Btl) 1 appln EXT TID PRN PRN Reason: Skin Irritation Stop: 08/04/21 06:04 Ondansetron HCl (Ondansetron Inj 2 Mg/Ml 2 Ml Vial) 4 mg IV Q6H PRN PRN Reason: Nausea Stop: 08/04/21 06:04 Ondansetron HCl (Ondansetron 4 Mg Od Tab) 4 mg PO Q8 PRN PRN Reason: Nausea And Vomiting Stop: 08/04/21 07:09 Pantoprazole Sodium (Pantoprazole 40 Mg Tab) [facility] Stop: 08/04/21 07:29 Last Admin: 07/22/21 05:41 Dose: 40 mg Documented by: Phenazopyridine HCl (Phenazopyridine Hcl 100 Mg Tab) 100 mg PO TID PRN PRN Reason: Dysuria Stop: 08/09/21 11:05 Last Admin: 07/14/21 14:11 Dose: 100 mg Documented by: Polyethylene Glycol (Polyethylene (Miralax) 17 Gm Pack) 17 gm PO DAILY PRN PRN Reason: Constipation Stop: 08/04/21 06:04 Polyethylene Glycol (Polyethylene (Miralax) 17 Gm Pack) 17 gm PO QAM [facility] Stop: 08/04/21 08:59 Last Admin: 07/22/21 09:45 Dose: 17 gm Documented by: Potassium Chloride (Potassium Chloride Crtab 20 Meq Tabcr) 20 meq PO BID [facility] Stop: 08/04/21 08:59 Last Admin: 07/22/21 09:44 Dose: 20 meq Documented by: Sennosides (Senna 8.6 Mg Tab) 8.6 mg PO DAILY PRN PRN Reason: Constipation Stop: 08/04/21 06:04 Last Admin: 07/14/21 08:45 Dose: 8.6 mg Documented by: Spironolactone (Spironolactone 25 Mg Tab) [facility] [place] Stop: 08/04/21 08:59 Last Admin: 07/22/21 09:44 Dose: 25 mg Documented by: Tamsulosin HCl (Tamsulosin Hcl 0.4 Mg Cap) 0.[address] [facility] Stop: 08/04/21 08:59 Last Admin: 07/22/21 09:44 Dose: 0.4 mg Documented by: Tramadol HCl (Tramadol Hcl 50 Mg Tablet) 100 mg PO Q6 PRN PRN Reason: Pain Stop: 08/04/21 06:04 Last Admin: 07/22/21 14:15 Dose: 100 mg Documented by: Umeclidinium [place] (Umeclidinium [place] 62.5mcg/Blister 7 Puffs/Inhaler) [address] [facility] Stop: 08/04/21 08:59 Last Admin: 07/22/21 09:55 Dose: 1 puffs Documented by: Warfarin Sodium (Warfarin Sod 10 Mg Tab) 10 mg PO DAILY@1600 [facility] Stop: 08/18/21 15:59 Last Admin: 07/21/21 16:34 Dose: 10 mg Documented by: (1) Urinary tract infection associated with catheterization of urinary tract Encounter type: initial encounter Indwelling urinary catheter type: indwelling urethral catheter Qualified Code(s): T83.511A - Infection and inflammatory reaction due to indwelling urethral catheter, initial encounter; N39.0 - Urinary tract infection, site not specified (2) HTN (hypertension) Hypertension type: essential hypertension Qualified Code(s): I10 - Essential (primary) hypertension
[2021-07-22] MEDS: WARFARIN SOD 10 MG TAB PO SCH (16:49)
--- NOTE | 2021-07-22 18:58 | XRay Report ---
RIGHT KNEE 2 VIEWS CLINICAL HISTORY: Right knee pain. FINDINGS: AP and crosstable lateral views of the right knee are compared to study dated 06/13/2021. Th e skeletal structures are well mineralized. No fracture is seen. There is mild degenerative narrowing in the medial and patellofemoral compartments. There are tiny marginal osteophytes. No significant j oint effusion is identified. Lateral soft tissue edema is noted. IMPRESSION: Mild soft tissue swelling with no acute bony abnormality identified. Electronically signed by: Misael Lopez M.D. 07/22/2021 6:57 PM
[2021-07-22] MEDS: INSULIN GLARGINE SOLOSTAR 100 UNITS/ML 3 ML PEN SC SCH (20:33)
[2021-07-22] MEDS: MELATONIN 3 MG TAB PO PRN (21:41)
[2021-07-23] MEDS: traMADol HCL 50 MG TABLET PO PRN ×4 (02:33→20:40)
[2021-07-23] MEDS: PANTOprazole 40 MG TAB PO SCH (06:32)
[2021-07-23] MEDS: GABAPENTIN 800 MG TAB PO SCH ×3 (08:39→21:39)
[2021-07-23] MEDS: ADVANCED PROBIOTIC 1250 MG CAPSULE PO SCH ×3 (08:39→21:38)
[2021-07-23] MEDS: NICOTINE 21 MG/24 HR TDSY TD SCH (08:40)
[2021-07-23] MEDS: SPIRONOLACTONE 25 MG TAB PO SCH (08:40)
[2021-07-23] MEDS: SENNA 8.6 MG TAB PO PRN (08:40)
[2021-07-23] MEDS: FOLIC ACID 1 MG TAB PO SCH (08:41)
[2021-07-23] MEDS: ISOSORBIDE MONO EXTENDED REL 30 MG TABCR PO SCH (08:41)
[2021-07-23] MEDS: FINASTERIDE 5 MG TAB PO SCH (08:41)
[2021-07-23] MEDS: POTASSIUM CHLORIDE CRTAB 20 MEQ TABCR PO SCH ×2 (08:41→21:39)
[2021-07-23] MEDS: TAMSULOSIN HCL 0.4 MG CAP PO SCH (08:42)
[2021-07-23] MEDS: ASPIRIN 81 MG ECTAB PO SCH (08:42)
[2021-07-23] MEDS: DULoxetine HCL 60 MG CAP PO SCH (08:42)
[2021-07-23] MEDS: INSULIN ASPART 100 UNITS/ML 3 ML PEN SC SCH ×4 (08:43→20:41)
[2021-07-23] MEDS: FLUTICASONE PROPIONATE NA SPR 16 GM BTL SCH (08:44)
[2021-07-23] MEDS: FLUTICASONE/VILANTEROL 100/25MCG 14 PUFFS/INHALER INH SCH (08:45)
[2021-07-23] MEDS: UMECLIDINIUM BROMIDE 62.5MCG/BLISTER 7 PUFFS/INHALER INH SCH (08:45)
[2021-07-23] MEDS: ENOXAPARIN INJ 40 MG/0.4 ML SYR SQ SCH ×2 (08:47→21:41)
[2021-07-23] MEDS: DOCUSATE SODIUM 100 MG CAP PO SCH ×2 (08:52→21:36)
[2021-07-23] MEDS: POLYETHYLENE (MIRALAX) 17 GM PACK PO SCH (08:52)
[2021-07-23] MEDS: buprenorphine HCL 8 MG SUBL SL SCH ×3 (08:59→21:37)
[2021-07-23] MEDS: FUROSEMIDE 40 MG/4 ML VIAL IV SCH ×2 (09:01→21:35)
[2021-07-23] MEDS: LORazepam 0.5 MG TAB PO PRN ×2 (09:08→21:37)
[2021-07-23 09:19] LABS: INR 1.5 (0.9-1.1); Prothrombin Time 15.1 Seconds (9.0-12.0)
[2021-07-23 09:26] LABS: BUN Creatinine Ratio 16.4 (10-20); Calcium 9.2 mg/dl (8.5-10.1); Creatinine Clr Calc Pharmacy 151.2 ml/min; Est GFR (African American) 94.8 ml/min; Est GFR (Non-African American) 81.8 ml/min; Potassium 4.2 mmol/L (3.5-5.1)
[2021-07-23] MEDS: FAMOTIDINE 20 MG TAB PO SCH (10:09)
[2021-07-23] MEDS: METOPROLOL SUCC 25MG EXT REL TAB PO SCH ×2 (10:10→21:38)
[2021-07-23] MEDS: ATORVASTATIN 40 MG TAB PO SCH (13:25)
[2021-07-23] MEDS: WARFARIN SOD 10 MG TAB PO SCH (16:31)
--- NOTE | 2021-07-23 18:13 | Hospitalist Progress Note ---
Date of Service July 23, 2021 Assessment & Plan (1) Acute on chronic diastolic heart failure: Plan: Presented with about 20 pounds weight gain in a few days with associated shortness of breath and increasing leg swelling Noted to have chest x-ray evidence of CHF Repeat CXR Cardiomegaly without evidence of pulmonary edema. Diuresing well-cumulative balance is [phone] as of 07/14/2021 Needs follow-up with cardiology upon discharge Volume Status improved IV Lasix transitioned to PO Lasix changed back to IV for better diuresis as he has been complaining of more wheezing and bloated Cumulative fluid losses 50 L since admission Complains to have bloated and also wheezing Will get chest [id number] congestion Does not want to comply with fluid restriction and wants to have around 2400 mL of fluid in 24 hours Warned against more shortness of breath and leg swelling We will continue intravenous Lasix-has been following the recommendations of fluid restriction Bright red blood per rectum Likely secondary to hemorrhoids Hemoglobin remained stable and will monitor Hemoccult has been negative and INR is not yet therapeutic Reassured-no more blood per rectum and hemoglobin remains stable Hemoccult has been negative-no more bleeding and hemoglobin remains stable Complaint right knee pain following a pop X-ray remains unremarkable Will not ask for orthopedic consult He will not get any extra narcotic pain medications other than whatever he is on now and those will not be changed (2) Chronic pain disorder: Plan: Has been on Ultram He has been on 100 mg Ultram every 6 hourly as needed He cyclobenzaprine has been discontinued because of severe interaction Continue current meds Has been complaining of increasing pain in in the knees, ankles and back We will consult pain therapist for further guidance on pain medications Appreciate pain therapy input and recommendation No narcotic pain medication as long as the patient is on Suboxone No more narcotics pain medications will be given He will continue with his [facility] His morning Suboxone was given orally instead of sublingual No additional doses were prescribed after discussion with the pharmacist No additional narcotics were given He will have Suboxone doses as advised (3) COPD exacerbation: Plan: Chronic respiratory failure with hypoxia--uses 4 L at bedtime and intermittently H/O COPD and may have mild exacerbation Continue with nebulized bronchodilator and inhalers Minimal wheezing on examination but no shortness of breath Minimal wheezing may be secondary to COPD Has minimal wheezing but does not require any further treatment for that Minimal wheezing secondary to COPD but no acute exacerbation Has minimal wheezing and there is accepted given his COPD (4) Obesity hypoventilation syndrome: Plan: BMI 60 (5) Urinary tract infection associated with catheterization of urinary tract: Plan: H/O Indwelling Lloyd catheter with recurrent urinary tract infection UTI:POA Likely secondary to chronic Lloyd catheter Urine culture growing , Enterococcus faecalis, nonfermenter species Changed Lloyd catheter Continue Zosyn >> Transition to Levaquin, ampicillin on 07/10 Unasyn and Bactrim have been discontinued Will get repeat UA examination and culture to make sure there is no infection Repeat UA has been negative We will repeat UA prior to discharge (6) DM type 2 (diabetes mellitus, type 2): Plan: We will continue with his usual insulin at home SSI (7) Anticoagulated on Coumadin: Plan: H/O PE and DVT INR Subtherapeutic Continue Coumadin Monitor INR:1.2 on 07/14/2021 Increase Coumadin to 7.5mg today Lovenox SQ until INR is therapeutic We will check INR tomorrow again-1.2 on 07/17/2021 Surprisingly INR remains low at 1.2 Will increase Coumadin to 10 mg-in spite of getting Coumadin 10 mg a day his INR remains subtherapeutic at 1.2 Advised the nurse to make sure that he has been taking Coumadin Has been getting Coumadin 10 mg daily and the INR is 1.5 as of 07/22/2021 INR remains at 1.5-advised the nurse to supervise Coumadin intake (8) HTN (hypertension): Plan: Blood pressure is stable Continue current medications Plan: BPH Continue current medicine DVT Px: Coumadin Lovenox SQ till INR therapeutic CODE STATUS Full Code Admission and Anticipated Discharge Date Admission Date: July 05, 2021 Subjective 07/14/2021 The patient was seen and examined in medical telemetry unit He has been waiting to be placed Complains to have some wheezing especially when ambulate Remains weak and lethargic July 15, 2021 The patient was seen and examined in medical floor He remained stable but complains more pain in the knees and asking for pain medication 07/16/2021 The patient was seen and examined in medical floor He complains of more pain in both the knees, ankle and at the back He cannot participate in physical therapy without adequate pain medications Has wheezing but denies any shortness of breath at rest No fever and no chills 07/17/2021 The patient was seen and examined in medical floor He complains to have increasing pain in the knees ankles and back He also has problem with his inhalers and believes that the device is being used for other patients too Still has minimal wheezing 07/18/2021 The patient was seen and examined in medical floor He has been stable but he still complains of pain in the knee joint and asking for as needed tramadol He was seen by pain therapist and is strongly advised not to give any more narcotic pain medications 07/19/2021 The patient was seen and examined in medical floor He has had bright red blood per rectum yesterday and so far x2 He complains to have more pain involving the right upper quadrant and neck area Still has wheezing but no shortness of breath at rest and saturating normally on room air 07/20/2021 The patient was seen and examined in medical floor He complains of wheezing and his INR remains subtherapeutic at 1.2 He mentions that he has been taking Coumadin regularly and has not been eating any diet that will hamper absorption Denies any other symptom 07/21/2021 The patient was seen and examined in medical floor He was given his Suboxone oral instead of sublingual this morning He was complaining of more pain and asking for additional pain medications which was denied His INR remains low at 1.3 He cannot take Eliquis because of his weight and the cart avoid limit is 120 kg 07/22/2021 The patient was seen and examined in medical floor He denies any significant symptoms today He has been drinking enough fluid and is not following the fluid restriction protocol Denies any chest pain and/or palpitation 07/23/2021 The patient was seen and examined in medical floor He has wheezing and some cough but denies any increasing shortness of breath or fever Still complains some knee pain Awaiting placement Review of Systems Review of Systems: All systems reviewed and are unremarkable except as noted below Musculoskeletal: Ongoing pain in the leg and back. Physical Exam Physical Exam: Lying in the bed with minimal wheezing and shortness of breath Constitutional: well developed, well nourished and + morbidly obese; not ill appearing Eyes: PERRL, conjunctivae normal, anicteric sclerae ENMT: external ear and nose normal, oropharynx normal Neck: trachea midline, no thyromegaly Respiratory: + respiratory distress (Minimal distress at rest), + cough and + audible wheezes Auscultation: + diminished lung sounds, + crackles (Minimal crackles at the bases) and + wheezes (Mild wheezing all over-improves with cough) Cardiovascular: Rate/Rhythm: regular rate and regular rhythm; not tachycardic Heart Sounds: normal S1 and normal S2; no murmur Extremities: + edema (1+ edema bilaterally with chronic skin changes) Gastrointestinal (Abdomen): Inspection/Auscultation: + abdomen distended and normal bowel sounds Percussion/Palpation: abdomen soft; abdomen nontender Musculoskeletal: His knee pain is better and the x-ray of the knee did not show any significant change Neurologic: Alert, 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 Lymphatic: no cervical or axillary lymphadenopathy Results & Data Results & Data ([facility]) Vital Signs (Past 12 Hours) Vital Signs Temp Pulse Resp BP Pulse Ox 07/23/21 15:44 36.8 C 66 16 121/65 92 07/23/21 07:30 36.5 C 61 20 123/67 98 Laboratory Results [facility] 07/23/21 08:47 Sodium 137 Potassium 4.2 Chloride 103 Carbon Dioxide 29 BUN 17 Creatinine 1.05 Glucose 115 H Calcium 9.2 Medications Administered Current Inpatient Medications Albuterol (Albuterol Hfa 8 Gm Inhaler) 2 puffs INH Q4 PRN PRN Reason: Dyspnea Stop: 08/04/21 06:04 Last Admin: 07/15/21 19:32 Dose: 2 puffs Documented by: Albuterol (Albut/Ipratrop 3mg/0.5mg Neb 3 Ml Vial) 3 ml INH Q6H PRN PRN Reason: Shortness Of Breath Or Wheezing Stop: 08/04/21 06:04 Aspirin (Aspirin 81 Mg Ectab) 81 mg PO QAM [facility] Stop: 08/04/21 08:59 Last Admin: 07/23/21 08:42 Dose: 81 mg Documented by: Atorvastatin Calcium (Atorvastatin 40 Mg Tab) 80 mg PO QDL [facility] Stop: 08/04/21 11:29 Last Admin: 07/23/21 13:25 Dose: 80 mg Documented by: Buprenorphine HCl (Buprenorphine Hcl 8 Mg Subl) 8 mg SL TID [facility] Stop: 08/04/21 08:59 Last Admin: 07/23/21 14:03 Dose: 8 mg Documented by: Cyclobenzaprine HCl (Cyclobenzaprine Hcl 10 Mg Tab) 10 mg PO BID PRN PRN Reason: Muscle Spasm Stop: 08/04/21 06:04 Last Admin: 07/06/21 09:02 Dose: 10 mg Documented by: Diclofenac Sodium (Diclofenac Sod 1% Gel 100 Gm Tube) 2 gm EXT QID PRN PRN Reason: knee pain Stop: 08/12/21 08:59 Last Admin: 07/17/21 21:09 Dose: 2 gm Documented by: Docusate Sodium (Docusate Sodium 100 Mg Cap) 100 mg PO BID [facility] Stop: 08/04/21 08:59 Last Admin: 07/23/21 08:52 Dose: 100 mg Documented by: Duloxetine HCl (Duloxetine Hcl 60 Mg Cap) 60 mg PO DAILY [facility] Stop: 08/04/21 08:59 Last Admin: 07/23/21 08:42 Dose: 60 mg Documented by: Enoxaparin Sodium (Enoxaparin Inj 40 Mg/0.4 Ml Syr) 40 mg SQ Q12H [facility] Stop: 08/09/21 09:29 Last Admin: 07/23/21 08:47 Dose: 40 mg Documented by: Ergocalciferol (Ergocalciferol 50,000 Units 1250 Mcg Cap) 50,000 units PO Fr@0900 [facility] Stop: 08/10/21 08:59 Last Admin: 07/18/21 09:31 Dose: 50,000 units Documented by: Famotidine (Famotidine 20 Mg Tab) 20 mg PO DAILY [facility] Stop: 08/04/21 08:59 Last Admin: 07/23/21 10:09 Dose: 20 mg Documented by: Finasteride (Finasteride 5 Mg Tab) 5 mg PO QAM [facility] Stop: 08/04/21 08:59 Last Admin: 07/23/21 08:41 Dose: 5 mg Documented by: Fluticasone Propionate (Fluticasone Propionate Na Spr 16 Gm Btl) 2 sprays NA DAILY [facility] Stop: 08/04/21 08:59 Last Admin: 07/23/21 08:44 Dose: 2 sprays Documented by: Fluticasone/Vilanterol (Fluticasone/Vilanterol 100/25mcg 14 Puffs/Inhaler) 1 puffs INH DAILY [facility] Stop: 08/04/21 08:59 Last Admin: 07/23/21 08:45 Dose: 1 puffs Documented by: Folic Acid (Folic Acid 1 Mg Tab) 1 mg PO QAM [facility] Stop: 08/04/21 08:59 Last Admin: 07/23/21 08:41 Dose: 1 mg Documented by: Furosemide (Furosemide 40 Mg/4 Ml Vial) 40 mg IV BID [facility] Stop: 08/15/21 20:59 Last Admin: 07/23/21 09:01 Dose: 40 mg Documented by: Gabapentin (Gabapentin 800 Mg Tab) 800 mg PO TID [facility] Stop: 08/04/21 08:59 Last Admin: 07/23/21 13:27 Dose: 800 mg Documented by: Guaifenesin/Dextromethorphan (Guaifenesin/Dextrom Syrup 200mg/20mg 10ml Udc) 10 ml PO Q6H PRN PRN Reason: Cough Stop: 08/07/21 16:40 Last Admin: 07/09/21 03:22 Dose: 10 ml Documented by: Insulin Aspart (Insulin Aspart 100 Units/Ml 3 Ml Pen) 0 units SC ACHS [facility] Stop: 08/04/21 07:29 Last Admin: 07/23/21 13:26 Dose: 9 units Documented by: Insulin Glargine (Insulin Glargine Solostar 100 Units/Ml 3 Ml Pen) 50 units SC HS [facility] Stop: 08/04/21 20:59 Last Admin: 07/22/21 20:33 Dose: 50 units Documented by: Isosorbide Mononitrate (Isosorbide [place] Extended Rel 30 Mg Tabcr) 30 mg PO DAILY [facility] Stop: 08/04/21 08:59 Last Admin: 07/23/21 08:41 Dose: 30 mg Documented by: Lactobacillus Acidoph/Casei/Rhamnos (Advanced Probiotic 1250 Mg Capsule) 2 cap PO TID [facility] Stop: 08/04/21 08:59 Last Admin: 07/23/21 13:27 Dose: 2 cap Documented by: Lorazepam (Lorazepam 0.5 Mg Tab) 0.5 mg PO Q8 PRN PRN Reason: Anxiety Stop: 08/04/21 06:04 Last Admin: 07/23/21 09:08 Dose: 0.5 mg Documented by: Melatonin (Melatonin 3 Mg Tab) 9 mg PO HS PRN PRN Reason: Sleep Stop: 08/05/21 23:06 Last Admin: 07/22/21 21:41 Dose: 9 mg Documented by: Methenamine Hippurate (Methenamine Hippurate 1 Gm Tab) 1 gm PO DAILY [facility] Stop: 08/04/21 08:59 Last Admin: 07/12/21 08:31 Dose: 1 gm Documented by: Metoprolol Succinate (Metoprolol Succ 25mg Ext Rel Tab) 75 mg PO BID [facility] Stop: 08/04/21 08:59 Last Admin: 07/23/21 10:10 Dose: Not Given Documented by: Miscellaneous (Remove Nicoderm Patch) 1 ea N/A DAILY@0859 [facility] Stop: 08/04/21 08:58 Last Admin: 07/23/21 08:42 Dose: 1 ea Documented by: Nicotine (Nicotine 21 Mg/24 Hr Tdsy) 21 mg TD DAILY [facility] Stop: 08/04/21 08:59 Last Admin: 07/23/21 08:40 Dose: 21 mg Documented by: Nitroglycerin (Nitroglycerin Sl 0.4 Mg/Tab Tab) 0.4 mg SL UD PRN PRN Reason: Chest Pain Stop: 08/04/21 06:04 Nystatin (Nystatin Powder 15gm Btl) 1 appln EXT TID PRN PRN Reason: Skin Irritation Stop: 08/04/21 06:04 Ondansetron HCl (Ondansetron Inj 2 Mg/Ml 2 Ml Vial) 4 mg IV Q6H PRN PRN Reason: Nausea Stop: 08/04/21 06:04 Ondansetron HCl (Ondansetron 4 Mg Od Tab) 4 mg PO Q8 PRN PRN Reason: Nausea And Vomiting Stop: 08/04/21 07:09 Pantoprazole Sodium (Pantoprazole 40 Mg Tab) 40 mg PO DAILYBB [facility] Stop: 08/04/21 07:29 Last Admin: 07/23/21 06:32 Dose: 40 mg Documented by: Phenazopyridine HCl (Phenazopyridine Hcl 100 Mg Tab) 100 mg PO TID PRN PRN Reason: Dysuria Stop: 08/09/21 11:05 Last Admin: 07/14/21 14:11 Dose: 100 mg Documented by: Polyethylene Glycol (Polyethylene (Miralax) 17 Gm Pack) 17 gm PO DAILY PRN PRN Reason: Constipation Stop: 08/04/21 06:04 Polyethylene Glycol (Polyethylene (Miralax) 17 Gm Pack) 17 gm PO [facility] Stop: 08/04/21 08:59 Last Admin: 07/23/21 08:52 Dose: 17 gm Documented by: Potassium Chloride (Potassium Chloride Crtab 20 Meq Tabcr) 20 meq PO BID [facility] Stop: 08/04/21 08:59 Last Admin: 07/23/21 08:41 Dose: 20 meq Documented by: Sennosides (Senna 8.6 Mg Tab) 8.6 mg PO DAILY PRN PRN Reason: Constipation Stop: 08/04/21 06:04 Last Admin: 07/23/21 08:40 Dose: 8.6 mg Documented by: Spironolactone (Spironolactone 25 Mg Tab) 25 mg PO QAM [facility] Stop: 08/04/21 08:59 Last Admin: 07/23/21 08:40 Dose: 25 mg Documented by: Tamsulosin HCl (Tamsulosin Hcl 0.4 Mg Cap) 0.4 mg PO [facility] Stop: 08/04/21 08:59 Last Admin: 07/23/21 08:42 Dose: 0.4 mg Documented by: Tramadol HCl (Tramadol Hcl 50 Mg Tablet) 100 mg PO Q6 PRN PRN Reason: Pain Stop: 08/04/21 06:04 Last Admin: 07/23/21 14:38 Dose: 100 mg Documented by: Umeclidinium [place] (Umeclidinium [place] 62.5mcg/Blister 7 Puffs/Inhaler) 1 puffs INH [facility] Stop: 08/04/21 08:59 Last Admin: 07/23/21 08:45 Dose: 1 puffs Documented by: Warfarin Sodium (Warfarin Sod 10 Mg Tab) 10 mg PO DAILY@1600 [facility] Stop: 08/18/21 15:59 Last Admin: 07/23/21 16:31 Dose: 10 mg Documented by: (1) Urinary tract infection associated with catheterization of urinary tract Encounter type: initial encounter Indwelling urinary catheter type: indwellin g urethral catheter Qualified Code(s): T83.511A - Infection and inflammatory reaction due to indwelling urethral catheter, initial encounter; N39.0 - Urinary tract infection, site not specified (2) HTN (hypertension) Hypertension type: essential hypertension Qualified Code(s): I10 - Essential (primary) hypertension
[2021-07-23] MEDS: INSULIN GLARGINE SOLOSTAR 100 UNITS/ML 3 ML PEN SC SCH (20:43)
[2021-07-23] MEDS: MELATONIN 3 MG TAB PO PRN (21:37)
[2021-07-24] MEDS: traMADol HCL 50 MG TABLET PO PRN ×4 (02:41→21:19)
[2021-07-24 06:06] LABS: INR 1.5 (0.9-1.1); Prothrombin Time 15.2 Seconds (9.0-12.0)
[2021-07-24 06:12] LABS: Basophils # (auto) 0.06 K/uL (0-0.2); Basophils % (auto) 0.6 %; Eosinophils # (auto) 0.59 K/uL (0-0.5); Eosinophils % (auto) 5.8 %; Hematocrit (blood only) 40.3 % (42-52); Hemoglobin 12.6 g/dL (14.0-18.0); Immature Granulocytes # (auto) 0.03 K/uL (0.00-0.02); Immature Granulocytes % (auto) 0.3 %; Lymphocytes # (auto) 3.35 K/uL (1.2-3.4); Lymphocytes % (auto) 32.8 %; Mean Corpuscular Hemoglobin 26.6 pg (25-34); Mean Corpuscular Hgb Conc 31.3 g/dL (32-36); Mean Corpuscular Volume 85.2 fL (80-100); Mean Platelet Volume 10.3 fL (7.4-10.4); Monocytes # (auto) 0.72 K/uL (0.11-0.59); Neutrophils # (auto) 5.47 K/uL (1.4-6.5); Neutrophils % (auto) 53.5 %; Platelet Count 223 K/uL (130-400); RDW Coefficient of Variation 17.5 % (11.5-14.5); RDW Standard Deviation 54.5 fL (36.4-46.3); Red Blood Count 4.73 M/uL (4.7-6.1); White Blood Count 10.22 K/uL (4.8-10.8)
[2021-07-24] MEDS: PANTOprazole 40 MG TAB PO SCH (06:27)
[2021-07-24 06:28] LABS: BUN Creatinine Ratio 14.9 (10-20); Calcium 9.4 mg/dl (8.5-10.1); Est GFR (African American) 90.6 ml/min; Est GFR (Non-African American) 78.2 ml/min; Potassium 4.1 mmol/L (3.5-5.1)
[2021-07-24] MEDS: LORazepam 0.5 MG TAB PO PRN ×2 (09:03→21:40)
[2021-07-24] MEDS: buprenorphine HCL 8 MG SUBL SL SCH ×3 (09:03→21:25)
[2021-07-24] MEDS: FOLIC ACID 1 MG TAB PO SCH (09:04)
[2021-07-24] MEDS: ISOSORBIDE MONO EXTENDED REL 30 MG TABCR PO SCH (09:04)
[2021-07-24] MEDS: POTASSIUM CHLORIDE CRTAB 20 MEQ TABCR PO SCH ×2 (09:04→21:27)
[2021-07-24] MEDS: NICOTINE 21 MG/24 HR TDSY TD SCH (09:04)
[2021-07-24] MEDS: FAMOTIDINE 20 MG TAB PO SCH (09:05)
[2021-07-24] MEDS: DULoxetine HCL 60 MG CAP PO SCH (09:05)
[2021-07-24] MEDS: FINASTERIDE 5 MG TAB PO SCH (09:05)
[2021-07-24] MEDS: GABAPENTIN 800 MG TAB PO SCH ×3 (09:05→21:26)
[2021-07-24] MEDS: ADVANCED PROBIOTIC 1250 MG CAPSULE PO SCH ×3 (09:06→21:27)
[2021-07-24] MEDS: FUROSEMIDE 40 MG/4 ML VIAL IV SCH ×2 (09:06→21:25)
[2021-07-24] MEDS: ASPIRIN 81 MG ECTAB PO SCH (09:06)
[2021-07-24] MEDS: ENOXAPARIN INJ 40 MG/0.4 ML SYR SQ SCH ×2 (09:06→21:34)
[2021-07-24] MEDS: TAMSULOSIN HCL 0.4 MG CAP PO SCH (09:07)
[2021-07-24] MEDS: SPIRONOLACTONE 25 MG TAB PO SCH (09:07)
[2021-07-24] MEDS: METOPROLOL SUCC 25MG EXT REL TAB PO SCH ×2 (09:07→21:26)
[2021-07-24] MEDS: FLUTICASONE/VILANTEROL 100/25MCG 14 PUFFS/INHALER INH SCH (09:07)
[2021-07-24] MEDS: INSULIN ASPART 100 UNITS/ML 3 ML PEN SC SCH ×4 (09:08→21:20)
[2021-07-24] MEDS: UMECLIDINIUM BROMIDE 62.5MCG/BLISTER 7 PUFFS/INHALER INH SCH (09:08)
[2021-07-24] MEDS: FLUTICASONE PROPIONATE NA SPR 16 GM BTL SCH (09:08)
[2021-07-24] MEDS: POLYETHYLENE (MIRALAX) 17 GM PACK PO SCH (09:12)
[2021-07-24] MEDS: DOCUSATE SODIUM 100 MG CAP PO SCH ×2 (09:12→21:38)
[2021-07-24] MEDS: ATORVASTATIN 40 MG TAB PO SCH (13:01)
[2021-07-24] MEDS: WARFARIN SOD 10 MG TAB PO SCH (16:26)
--- NOTE | 2021-07-24 19:30 | Hospitalist Progress Note ---
Date of Service July 24, 2021 Assessment & Plan (1) Acute on chronic diastolic heart failure: Plan: Presented with about 20 pounds weight gain in a few days with associated shortness of breath and increasing leg swelling Noted to have chest x-ray evidence of CHF Repeat CXR Cardiomegaly without evidence of pulmonary edema. Needs follow-up with cardiology upon discharge. Currently remains on Lasix 40 mg twice daily and spironolactone 25 milligrams daily. Continue monitor ins and outs along with daily weights. We will repeat chest x-ray today revealed fluid overload. Currently on room air and hemodynamically doing fine. Bright red blood per rectum Likely secondary to hemorrhoids Hemoglobin remained stable and will monitor Hemoccult has been negative and INR is not yet therapeutic Reassured-no more blood per rectum and hemoglobin remains stable Hemoccult has been negative-no more bleeding and hemoglobin remains stable. Hemoglobin remained stable. Complaint right knee pain following a pop X-ray remains unremarkable Will not ask for orthopedic consult He will not get any extra narcotic pain medications other than whatever he is on now and those will not be changed. (2) Chronic pain disorder: Plan: Has been on Ultram He has been on 100 mg Ultram every 6 hourly as needed He cyclobenzaprine has been discontinued because of severe interaction Continue current meds Has been complaining of increasing pain in in the knees, ankles and back We will consult pain therapist for further guidance on pain medications Appreciate pain therapy input and recommendation No narcotic pain medication as long as the patient is on Suboxone No more narcotics pain medications will be given He will [facility] with [facility] His morning Suboxone was given orally instead of sublingual No additional doses were prescribed after discussion with the pharmacist No additional narcotics were given He will have Suboxone doses as advised. (3) COPD exacerbation: Plan: Chronic respiratory failure with hypoxia--uses 4 L at bedtime and intermittently H/O COPD and may have mild exacerbation Continue with nebulized bronchodilator and inhalers Remains stable. Remains on room air. (4) Obesity hypoventilation syndrome: Plan: BMI 60 (5) Urinary tract infection associated with catheterization of urinary tract: Plan: H/O Indwelling Lloyd catheter with recurrent urinary tract infection UTI:POA Likely secondary to chronic Lloyd catheter Urine culture growing , Enterococcus faecalis, nonfermenter species Changed Lloyd catheter Continue Zosyn >> Transition to Levaquin, ampicillin on 07/10 Unasyn and Bactrim have been discontinued (6) DM type 2 (diabetes mellitus, type 2): Plan: We will continue with his usual insulin at home SSI (7) Anticoagulated on Coumadin: Plan: H/O PE and DVT INR today at 1.5 Coumadin 10 mg today. (8) HTN (hypertension): Plan: Blood pressure is stable Continue current medications Plan: BPH Continue current medicine DVT Px: Coumadin Lovenox SQ till INR therapeutic CODE STATUS Full Code Admission and Anticipated Discharge Date Admission Date: July 05, 2021 Subjective Doing OK this morning. Resting comfortably. Does not appear to be in any distress. Currently on room air. No new complaints. Review of Systems Review of Systems: All systems reviewed & are unremarkable except as noted in HPI & below Physical Exam Physical Exam: General: A&Ox3. HENT: NCAT, MMM, EOMI Eyes: PERRLA Neck: Supple, normal range of motion CVS: normal rate and rhythm Resp: b/l decrease breath sounds Abdomen: Soft, ND/NT Extremities: No c/c/e Neuro: face symmetric, no focal deficit Skin: warm and dry MSK: no joint swelling/erythema Lloyd catheter in place. Results & Data Results & Data ([facility]) Vital Signs (Past 12 Hours) Vital Signs Temp Pulse Resp BP Pulse Ox 07/24/21 15:04 36.8 C 69 16 120/52 L 96 (1) Urinary tract infection associated with catheterization of urinary tract Encounter type: initial encounter Indwelling urinary catheter type: indwelling urethral catheter Qualified Code(s): T83.511A - Infection and inflammatory reaction due to indwelling urethral catheter, initial encounter; N39.0 - Urinary tract infection, site not specified (2) HTN (hypertension) Hypertension type: essential hypertension Qualified Code(s): I10 - Essential (primary) hypertension
[2021-07-24] MEDS: INSULIN GLARGINE SOLOSTAR 100 UNITS/ML 3 ML PEN SC SCH (21:21)
[2021-07-24] MEDS: MELATONIN 3 MG TAB PO PRN (21:40)
[2021-07-25] MEDS: traMADol HCL 50 MG TABLET PO PRN ×4 (03:40→21:45)
[2021-07-25] MEDS: PANTOprazole 40 MG TAB PO SCH (06:27)
[2021-07-25] MEDS: POLYETHYLENE (MIRALAX) 17 GM PACK PO SCH (09:14)
[2021-07-25] MEDS: METOPROLOL SUCC 25MG EXT REL TAB PO SCH ×2 (09:16→21:32)
[2021-07-25] MEDS: DOCUSATE SODIUM 100 MG CAP PO SCH ×2 (09:16→21:31)
[2021-07-25] MEDS: ERGOCALCIFEROL 50,000 UNITS 1250 MCG CAP PO SCH (09:17)
[2021-07-25] MEDS: ISOSORBIDE MONO EXTENDED REL 30 MG TABCR PO SCH (09:17)
[2021-07-25] MEDS: FINASTERIDE 5 MG TAB PO SCH (09:17)
[2021-07-25] MEDS: ADVANCED PROBIOTIC 1250 MG CAPSULE PO SCH ×3 (09:17→21:33)
[2021-07-25] MEDS: ASPIRIN 81 MG ECTAB PO SCH (09:17)
[2021-07-25] MEDS: FOLIC ACID 1 MG TAB PO SCH (09:17)
[2021-07-25] MEDS: TAMSULOSIN HCL 0.4 MG CAP PO SCH (09:17)
[2021-07-25] MEDS: FAMOTIDINE 20 MG TAB PO SCH (09:17)
[2021-07-25] MEDS: GABAPENTIN 800 MG TAB PO SCH ×3 (09:17→21:33)
[2021-07-25] MEDS: DULoxetine HCL 60 MG CAP PO SCH (09:17)
[2021-07-25] MEDS: FLUTICASONE PROPIONATE NA SPR 16 GM BTL SCH (09:18)
[2021-07-25] MEDS: POTASSIUM CHLORIDE CRTAB 20 MEQ TABCR PO SCH ×2 (09:18→21:32)
[2021-07-25] MEDS: SPIRONOLACTONE 25 MG TAB PO SCH (09:18)
[2021-07-25] MEDS: UMECLIDINIUM BROMIDE 62.5MCG/BLISTER 7 PUFFS/INHALER INH SCH (09:19)
[2021-07-25] MEDS: FLUTICASONE/VILANTEROL 100/25MCG 14 PUFFS/INHALER INH SCH (09:19)
[2021-07-25] MEDS: LORazepam 0.5 MG TAB PO PRN ×2 (09:41→21:31)
[2021-07-25] MEDS: buprenorphine HCL 8 MG SUBL SL SCH ×3 (09:42→21:30)
[2021-07-25] MEDS: NICOTINE 21 MG/24 HR TDSY TD SCH (09:44)
[2021-07-25] MEDS: FUROSEMIDE 40 MG/4 ML VIAL IV SCH ×2 (09:46→21:42)
[2021-07-25] MEDS: ENOXAPARIN INJ 40 MG/0.4 ML SYR SQ SCH ×2 (09:52→21:31)
[2021-07-25] MEDS: INSULIN ASPART 100 UNITS/ML 3 ML PEN SC SCH ×5 (09:54→22:50)
[2021-07-25] MEDS: ATORVASTATIN 40 MG TAB PO SCH (12:49)
--- NOTE | 2021-07-25 14:41 | XRay Report ---
XR chest 1V portable CLINICAL HISTORY: fluid overload? COMPARISON STUDY: Chest radiograph July 20, 2021. FINDINGS: Patient is mildly rotated. No pneumothorax or definite pleural effusion is noted. Apparent hazy left basilar opacity is likely artifactual. Apparent pulmonary vascular congestion is unchanged. No evidence for overt pulmonary edema. Cardiomediastinal silhouette is stable. Appearance of the [address] is unchanged. IMPRESSION: Cardiomegaly with pulmonary vascular congestion, similar to prior exams. ACT 112: Negative or not required by law. Electronically signed by: Evelio Corbin M.D. 07/25/2021 2:40 PM
[2021-07-25] MEDS ORDERED: FUROSEMIDE 40 MG/4 ML VIAL IV ONE (15:10)
--- NOTE | 2021-07-25 15:11 | Hospitalist Progress Note ---
Date of Service July 25, 2021 Assessment & Plan (1) Acute on chronic diastolic heart failure: Plan: Presented with about 20 pounds weight gain in a few days with associated shortness of breath and increasing leg swelling Noted to have chest x-ray evidence of CHF Repeat CXR Cardiomegaly without evidence of pulmonary edema. Needs follow-up with cardiology upon discharge. Currently remains on Lasix 40 mg twice daily and spironolactone 25 milligrams daily. Continue monitor ins and outs along with daily weights. Currently on room air and hemodynamically doing fine. Chest x-ray today revealed concern for fluid overload. Give one-time dose of additional IV Lasix 40 mg. Bright red blood per rectum Likely secondary to hemorrhoids Hemoglobin remained stable and will monitor Hemoccult has been negative and INR is not yet therapeutic Reassured-no more blood per rectum and hemoglobin remains stable Hemoccult has been negative-no more bleeding and hemoglobin remains stable. Hemoglobin remained stable. Complaint right knee pain following a pop X-ray remains unremarkable Will not ask for orthopedic consult He will not get any extra narcotic pain medications other than whatever he is on now and those will not be changed. (2) Chronic pain disorder: Plan: Has been on Ultram He has been on 100 mg Ultram every 6 hourly as needed He cyclobenzaprine has been discontinued because of severe interaction Continue current meds Has been complaining of increasing pain in in the knees, ankles and back We will consult pain therapist for further guidance on pain medications Appreciate pain therapy input and recommendation No narcotic pain medication as long as the patient is on Suboxone No more narcotics pain medications will be given He will continue with his [facility] His morning Suboxone was given orally instead of sublingual No additional doses were prescribed after discussion with the pharmacist No additional narcotics were given He will have Suboxone doses as advised. (3) COPD exacerbation: Plan: Chronic respiratory failure with hypoxia--uses 4 L at bedtime and intermittently H/O COPD and may have mild exacerbation Continue with nebulized bronchodilator and inhalers Remains stable. Remains on room air. (4) Obesity hypoventilation syndrome: Plan: BMI 60 (5) Urinary tract infection associated with catheterization of urinary tract: Plan: H/O Indwelling Lloyd catheter with recurrent urinary tract infection UTI:POA Likely secondary to chronic Lloyd catheter Urine culture growing , Enterococcus faecalis, nonfermenter species Changed Lloyd catheter Continue Zosyn >> Transition to Levaquin, ampicillin on 07/10 Unasyn and Bactrim have been discontinued (6) DM type 2 (diabetes mellitus, type 2): Plan: We will continue with his usual insulin at home SSI (7) Anticoagulated on Coumadin: Plan: H/O PE and DVT INR today at 1.5 Coumadin 10 mg today. (8) HTN (hypertension): Plan: Blood pressure is stable Continue current medications Plan: BPH Continue current medicine DVT Px: Coumadin Lovenox SQ till INR therapeutic CODE STATUS Full Code Admission and Anticipated Discharge Date Admission Date: July 05, 2021 Subjective Clinically status quo. No new issues. Hemodynamically doing okay. Currently on room air. Review of Systems Review of Systems: All systems reviewed & are unremarkable except as noted in HPI & below Physical Exam Physical Exam: General: A&Ox3. HENT: NCAT, MMM, EOMI Eyes: PERRLA Neck: Supple, normal range of motion CVS: normal rate and rhythm Resp: b/l decrease breath sounds Abdomen: Soft, ND/NT Extremities: No c/c/e Neuro: face symmetric, no focal deficit Skin: warm and dry MSK: no joint swelling/erythema Lloyd catheter in place. Results & Data Results & [facility] Vital Signs (Past 12 Hours) Vital Signs Temp Pulse Pulse Resp BP BP Pulse Ox 07/25/21 14:45 36.4 C L 70 16 139/95 95 07/25/21 09:16 64 07/25/21 05:52 36.5 C 56 L 18 114/71 100 (1) Urinary tract infection associated with catheterization of urinary tract Encounter type: initial encounter Indwelling urinary catheter type: indwelling urethral catheter Qualified Code(s): T83.511A - Infection and inflammatory reaction due to indwelling urethral catheter, initial encounter; N39.0 - Urinary tract infection, site not specified (2) HTN (hypertension) Hypertension type: essential hypertension Qualified Code(s): I10 - Essential (primary) hypertension
[2021-07-25] MEDS: WARFARIN SOD 10 MG TAB PO SCH (15:56)
[2021-07-25] MEDS: MELATONIN 3 MG TAB PO PRN (21:30)
[2021-07-25] MEDS: INSULIN GLARGINE SOLOSTAR 100 UNITS/ML 3 ML PEN SC SCH (21:35)
[2021-07-26] MEDS: traMADol HCL 50 MG TABLET PO PRN ×4 (03:43→21:50)
[2021-07-26 06:19] LABS: INR 1.8 (0.9-1.1); Prothrombin Time 17.6 Seconds (9.0-12.0)
[2021-07-26] MEDS: PANTOprazole 40 MG TAB PO SCH (07:21)
[2021-07-26] MEDS: buprenorphine HCL 8 MG SUBL SL SCH ×3 (08:53→21:09)
[2021-07-26] MEDS: POLYETHYLENE (MIRALAX) 17 GM PACK PO SCH (08:54)
[2021-07-26] MEDS: UMECLIDINIUM BROMIDE 62.5MCG/BLISTER 7 PUFFS/INHALER INH SCH (08:54)
[2021-07-26] MEDS: LORazepam 0.5 MG TAB PO PRN ×2 (08:54→21:09)
[2021-07-26] MEDS: DOCUSATE SODIUM 100 MG CAP PO SCH ×2 (08:55→21:10)
[2021-07-26] MEDS: NICOTINE 21 MG/24 HR TDSY TD SCH (08:56)
[2021-07-26] MEDS: FLUTICASONE/VILANTEROL 100/25MCG 14 PUFFS/INHALER INH SCH (08:56)
[2021-07-26] MEDS: FLUTICASONE PROPIONATE NA SPR 16 GM BTL SCH (08:58)
[2021-07-26] MEDS: ASPIRIN 81 MG ECTAB PO SCH (08:59)
[2021-07-26] MEDS: FINASTERIDE 5 MG TAB PO SCH (08:59)
[2021-07-26] MEDS: FOLIC ACID 1 MG TAB PO SCH (08:59)
[2021-07-26] MEDS: DULoxetine HCL 60 MG CAP PO SCH (09:01)
[2021-07-26] MEDS: FAMOTIDINE 20 MG TAB PO SCH (09:01)
[2021-07-26] MEDS: TAMSULOSIN HCL 0.4 MG CAP PO SCH (09:01)
[2021-07-26] MEDS: POTASSIUM CHLORIDE CRTAB 20 MEQ TABCR PO SCH ×2 (09:01→21:11)
[2021-07-26] MEDS: GABAPENTIN 800 MG TAB PO SCH ×3 (09:01→21:10)
[2021-07-26] MEDS: ADVANCED PROBIOTIC 1250 MG CAPSULE PO SCH ×3 (09:01→21:11)
[2021-07-26] MEDS: ISOSORBIDE MONO EXTENDED REL 30 MG TABCR PO SCH (09:08)
[2021-07-26] MEDS: ENOXAPARIN INJ 40 MG/0.4 ML SYR SQ SCH ×2 (09:08→21:12)
[2021-07-26] MEDS: METOPROLOL SUCC 25MG EXT REL TAB PO SCH ×2 (09:08→21:11)
[2021-07-26] MEDS: SPIRONOLACTONE 25 MG TAB PO SCH (09:08)
[2021-07-26] MEDS: INSULIN ASPART 100 UNITS/ML 3 ML PEN SC SCH ×4 (09:12→21:15)
[2021-07-26] MEDS: FUROSEMIDE 40 MG/4 ML VIAL IV SCH (09:18)
--- NOTE | 2021-07-26 10:51 | Hospitalist Progress Note ---
Date of Service July 26, 2021 Assessment & Plan (1) Acute on chronic diastolic heart failure: Plan: Presented with about 20 pounds weight gain in a few days with associated shortness of breath and increasing leg swelling Noted to have chest x-ray evidence of CHF started on intravenous furosemide and has continued this for many days. He is overall net negative and feeling at his baseline. Needs follow-up with cardiology upon discharge. Currently remains on Lasix 40 mg twice daily and spironolactone 25 milligrams daily. Change Lasix to PO version. Continue monitor ins and outs along with daily weights. Stable and awaiting discharge. (2) Chronic pain disorder: Plan: No new reports of pain today. Has been on Subutex SL TID and Tramadol PRN which he takes consistently. Has a h/o opiate use disorder. Again attempting to get narcotics because of a SNF restriction. There will be no changes to his pain regimen at this time. Cont current therapy per outpatient regimen. (3) COPD exacerbation: Plan: Chronic respiratory failure with hypoxia--uses 4 L at bedtime and intermittently H/O COPD and felt to have a possible mild exacerbation on admission. Still with some corase breath sounds in upper lung hendrickson and "smoker's cough" present on exam. This is likely the result of continuing to smoke at home. No evidence of COPD exacerbation at this time. Will palliate with scheduled Mucinex and one neb treatment now. Cont home inhaler therapy. Currently oxygenating well on room air. (4) Urinary tract infection associated with catheterization of urinary tract: Plan: H/O Indwelling Lloyd catheter with recurrent urinary tract infection, POA. Likely secondary to chronic Lloyd catheter Urine culture growing , Enterococcus faecalis, nonfermenter species Changed Lloyd catheter Continue Zosyn >> Transition to Levaquin, ampicillin on 07/10 Unasyn and Bactrim have been discontinued (5) DM type 2 (diabetes mellitus, type 2): Plan: Controlled as inpatient, cont current insulin regimen. (6) Anticoagulated on Coumadin: Plan: H/O PE and DVT, continues on Lovenox bridge with daily coumadin at increased dose of 10mg daily. INR still 1.8. Cont current therapy and repeat INR in am. Stop Lovenox when INR>2. (7) HTN (hypertension): Plan: controlled, cont current therapy. (8) Hematochezia: Plan: Bright red blood per rectum reported earlier in admisison, which has now resolved. H/H has remained stable. Continues on bridging therapy with Lovenox to coumadin, INR is 1.8 today. Out patient GI followup recommended. (9) Morbid obesity: Plan: Continued to recommend Weight loss. (10) Right knee pain: Plan: Complaint right knee pain following a pop earlier this admission. Xray revealed no acute fracture. There is no clear abnormality on exam and patient is not reporting pain and is reporting that he can ambulate well around the room. No further investigation. (11) DVT prophylaxis: Plan: Coumadin daily with Lovenox bridge continued until INR>2 Full Code Dispo-awaiting SNF placement, but if patient is walking around well and performing ADLs this should be re-evaluated as he may be well enough to just go home. Defer to PT and OT. Mala Grace [facility] and Anticipated Discharge Date Admission Date: July 05, 2021 Subjective 51 yo M admitted for acute shortness of breath and weight gain. He was treated for a CHF exaverbation and appears clinically compensated at this time. He has been on intravenous furosemide consistently for several days now and is net negative overall by 9L for the stay, 5L down since yesterday. Converting back to PO home dose now. On arrival patient has the light off and states "I feel crappy" but doesn't elaborate beyond that. Denies SOB, chest pain or worsening of his chronic pain. Mostly fixated on changing his Subutex to "some other pain med" because of restrictions he has heard of from SNFs in the area. He reports "calling some of my friends I used to go to school with who work there" speaking about [facility] to facilitate his entry into a facility. He verbalized understanding that we are not planning to change his pain medication regimen in light of these restrictions. He denies feeling dehydrated. He reports walking around the room and has green socks on. He feels improved overall since admission. Review of Systems Review of Systems: All systems were reviewed and negative except as indicated in subjective above. Physical Exam Physical Exam: CONSTITUTIONAL: obese, vitals as above, generally well- appearing EYES: normal conjunctivae, no scleral icterus ENT: external ear and nose normal, MMM RESPIRATORY: coarse rhonchi in upper lung hendrickson bilaterally, no rales or yeimi wheezes, normal respiratory effort, not on supplemental oxygen and no conversational dyspnea when speaking in full sentences. CARDIOVASCULAR: regular rate and rhythm, S1 and 2 heard without murmurs, gallops or rubs, no JVD, no peripheral edema GASTROINTESTINAL: soft, nontender, ND, no guarding, protuberant. MUSCULOSKELETAL: strength 5/5 throughout, head is normocephalic and atraumatic SKIN: warm and dry, multiple scratches apparent on legs, nothing overtly open or draining. NEUROLOGIC: No facial palsy, no dysarthria. CN 2-12 grossly intact, no sensory deficit, normal cognition, normal speech PSYCHIATRIC: alert cooperative and oriented to person, place and time. Results & Data Results & Data ([facility]) Vital Signs (Past 12 Hours) Vital Signs Temp Pulse Pulse Resp BP Pulse Ox 07/26/21 09:06 64 139/84 07/26/21 06:32 36.6 C 56 L 18 135/72 98 Medications Administered Current Inpatient Medications Albuterol (Albuterol Hfa 8 Gm Inhaler) 2 puffs INH Q4 PRN PRN Reason: Dyspnea Stop: 08/04/21 06:04 Last Admin: 07/15/21 19:32 Dose: 2 puffs Documented by: Albuterol (Albut/Ipratrop 3mg/0.5mg Neb 3 Ml Vial) 3 ml INH Q6H PRN PRN Reason: Shortness Of Breath Or Wheezing Stop: 08/04/21 06:04 Aspirin (Aspirin 81 Mg Ectab) 81 mg PO QAM [facility] Stop: 08/04/21 08:59 Last Admin: 07/26/21 08:59 Dose: 81 mg Documented by: Atorvastatin Calcium (Atorvastatin 40 Mg Tab) 80 mg PO QDL [facility] Stop: 08/04/21 11:29 Last Admin: 07/25/21 12:49 Dose: 80 mg Documented by: Buprenorphine HCl (Buprenorphine Hcl 8 Mg Subl) 8 mg SL TID [facility] Stop: 08/04/21 08:59 Last Admin: 07/26/21 08:53 Dose: 8 mg Documented by: Cyclobenzaprine HCl (Cyclobenzaprine Hcl 10 Mg Tab) 10 mg PO BID PRN PRN Reason: Muscle Spasm Stop: 08/04/21 06:04 Last Admin: 07/06/21 09:02 Dose: 10 mg Documented by: Diclofenac Sodium (Diclofenac Sod 1% Gel 100 Gm Tube) 2 gm EXT QID PRN PRN Reason: knee pain Stop: 08/12/21 08:59 Last Admin: 07/17/21 21:09 Dose: 2 gm Documented by: Docusate Sodium (Docusate Sodium 100 Mg Cap) 100 mg PO BID EMPERATRIZ Stop: 08/04/21 08:59 Last Admin: 07/26/21 08:55 Dose: 100 mg Documented by: Duloxetine HCl (Duloxetine Hcl 60 Mg Cap) 60 mg PO DAILY EMPERATRIZ Stop: 08/04/21 08:59 Last Admin: 07/26/21 09:01 Dose: 60 mg Documented by: Enoxaparin Sodium (Enoxaparin Inj 40 Mg/0.4 Ml Syr) 40 mg SQ Q12H EMPERATRIZ Stop: 08/09/21 09:29 Last Admin: 07/26/21 09:08 Dose: 40 mg Documented by: Ergocalciferol (Ergocalciferol 50,000 Units 1250 Mcg Cap) 50,000 units PO Fr@0900 EMPERATRIZ Stop: 08/10/21 08:59 Last Admin: 07/25/21 09:17 Dose: 50,000 units Documented by: Famotidine (Famotidine 20 Mg Tab) 20 mg PO DAILY [facility] Stop: 08/04/21 08:59 Last Admin: 07/26/21 09:01 Dose: 20 mg Documented by: Finasteride (Finasteride 5 Mg Tab) 5 mg PO QAM EMPERATRIZ Stop: 08/04/21 08:59 Last Admin: 07/26/21 08:59 Dose: 5 mg Documented by: Fluticasone Propionate (Fluticasone Propionate Na Spr 16 Gm Btl) 2 sprays NA DAILY EMPERATRIZ Stop: 08/04/21 08:59 Last Admin: 07/26/21 08:58 Dose: 2 sprays Documented by: Fluticasone/Vilanterol (Fluticasone/Vilanterol 100/25mcg 14 Puffs/Inhaler) 1 puffs INH DAILY EMPERATRIZ Stop: 08/04/21 08:59 Last Admin: 07/26/21 08:56 Dose: 1 puffs Documented by: Folic Acid (Folic Acid 1 Mg Tab) 1 mg PO QAM EMPERATRIZ Stop: 08/04/21 08:59 Last Admin: 07/26/21 08:59 Dose: 1 mg Documented by: Furosemide (Furosemide 40 Mg/4 Ml Vial) 40 mg IV BID EMPERATRIZ Stop: 08/15/21 20:59 Last Admin: 07/26/21 09:18 Dose: 40 mg Documented by: Gabapentin (Gabapentin 800 Mg Tab) 800 mg PO TID EMPERATRIZ Stop: 08/04/21 08:59 Last Admin: 07/26/21 09:01 Dose: 800 mg Documented by: Guaifenesin/Dextromethorphan (Guaifenesin/Dextrom Syrup 200mg/20mg 10ml Udc) 10 ml PO Q6H PRN PRN Reason: Cough Stop: 08/07/21 16:40 Last Admin: 07/09/21 03:22 Dose: 10 ml Documented by: Insulin Aspart (Insulin Aspart 100 Units/Ml 3 Ml Pen) 0 units SC ACHS EMPERATRIZ Stop: 08/04/21 07:29 Last Admin: 07/26/21 09:12 Dose: 9 units Documented by: Insulin Glargine (Insulin Glargine Solostar 100 Units/Ml 3 Ml Pen) 50 units SC HS EMPERATRIZ Stop: 08/04/21 20:59 Last Admin: 07/25/21 21:35 Dose: 50 units Documented by: Isosorbide Mononitrate (Isosorbide Scott Extended Rel 30 Mg Tabcr) 30 mg PO DAILY EMPERATRIZ Stop: 08/04/21 08:59 Last Admin: 07/26/21 09:08 Dose: 30 mg Documented by: Lactobacillus Acidoph/Casei/Rhamnos (Advanced Probiotic 1250 Mg Capsule) 2 cap PO TID EMPERATRIZ Stop: 08/04/21 08:59 Last Admin: 07/26/21 09:01 Dose: 2 cap Documented by: Lorazepam (Lorazepam 0.5 Mg Tab) 0.5 mg PO Q8 PRN PRN Reason: Anxiety Stop: 08/04/21 06:04 Last Admin: 07/26/21 08:54 Dose: 0.5 mg Documented by: Melatonin (Melatonin 3 Mg Tab) 9 mg PO HS PRN PRN Reason: Sleep Stop: 08/05/21 23:06 Last Admin: 07/25/21 21:30 Dose: 9 mg Documented by: Methenamine Hippurate (Methenamine Hippurate 1 Gm Tab) 1 gm PO DAILY EMPERATRIZ Stop: 08/04/21 08:59 Last Admin: 07/12/21 08:31 Dose: 1 gm Documented by: Metoprolol Succinate (Metoprolol Succ 25mg Ext Rel Tab) 75 mg PO BID EMPERATRIZ Stop: 08/04/21 08:59 Last Admin: 07/26/21 09:08 Dose: 75 mg Documented by: Miscellaneous (Remove Nicoderm Patch) 1 ea N/A DAILY@0859 EMPERATRIZ Stop: 08/04/21 08:58 Last Admin: 07/26/21 09:01 Dose: 1 ea Documented by: Nicotine (Nicotine 21 Mg/24 Hr Tdsy) 21 mg TD DAILY EMPERATRIZ Stop: 08/04/21 08:59 Last Admin: 07/26/21 08:56 Dose: 21 mg Documented by: Nitroglycerin (Nitroglycerin Sl 0.4 Mg/Tab Tab) 0.4 mg SL UD PRN PRN Reason: Chest Pain Stop: 08/04/21 06:04 Nystatin (Nystatin Powder 15gm Btl) 1 appln EXT TID PRN PRN Reason: Skin Irritation Stop: 08/04/21 06:04 Ondansetron HCl (Ondansetron Inj 2 Mg/Ml 2 Ml Vial) 4 mg IV Q6H PRN PRN Reason: Nausea Stop: 08/04/21 06:04 Ondansetron HCl (Ondansetron 4 Mg Od Tab) 4 mg PO Q8 PRN PRN Reason: Nausea And Vomiting Stop: 08/04/21 07:09 Pantoprazole Sodium (Pantoprazole 40 Mg Tab) 40 mg PO DAILYBB [facility] Stop: 08/04/21 07:29 Last Admin: 07/26/21 07:21 Dose: 40 mg Documented by: Phenazopyridine HCl (Phenazopyridine Hcl 100 Mg Tab) 100 mg PO TID PRN PRN Reason: Dysuria Stop: 08/09/21 11:05 Last Admin: 07/14/21 14:11 Dose: 100 mg Documented by: Polyethylene Glycol (Polyethylene (Miralax) 17 Gm Pack) 17 gm PO DAILY PRN PRN Reason: Constipation Stop: 08/04/21 06:04 Polyethylene Glycol (Polyethylene (Miralax) 17 Gm Pack) 17 gm PO QAM [facility] Stop: 08/04/21 08:59 Last Admin: 07/26/21 08:54 Dose: 17 gm Documented by: Potassium Chloride (Potassium Chloride Crtab 20 Meq Tabcr) 20 meq PO BID [facility] Stop: 08/04/21 08:59 Last Admin: 07/26/21 09:01 Dose: 20 meq Documented by: Sennosides (Senna 8.6 Mg Tab) 8.6 mg PO DAILY PRN PRN Reason: Constipation Stop: 08/04/21 06:04 Last Admin: 07/23/21 08:40 Dose: 8.6 mg Documented by: Spironolactone (Spironolactone 25 Mg Tab) 25 mg PO [facility] Stop: 08/04/21 08:59 Last Admin: 07/26/21 09:08 Dose: 25 mg Documented by: Tamsulosin HCl (Tamsulosin Hcl 0.4 Mg Cap) 0.4 mg PO [facility] Stop: 08/04/21 08:59 Last Admin: 07/26/21 09:01 Dose: 0.4 mg Documented by: Tramadol HCl (Tramadol Hcl 50 Mg Tablet) 100 mg PO Q6 PRN PRN Reason: Pain Stop: 08/04/21 06:04 Last Admin: 07/26/21 09:42 Dose: 100 mg Documented by: Umeclidinium [place] (Umeclidinium [place] 62.5mcg/Blister 7 Puffs/Inhaler) 1 puffs INH [facility] Stop: 08/04/21 08:59 Last Admin: 07/26/21 08:54 Dose: 1 puffs Documented by: Warfarin Sodium (Warfarin Sod 10 Mg Tab) 10 mg PO DAILY@1600 [facility] Stop: 08/18/21 15:59 Last Admin: 07/25/21 15:56 Dose: 10 mg Documented by: (1) Urinary tract infection associated with catheterization of urinary tract Encounter type: initial encounter Indwelling urinary catheter type: indwelling urethral catheter Qualified Code(s): T83.511A - Infection and inflammatory reaction due to indwelling urethral catheter, initial encounter; N39.0 - Urinary tract infection, site not specified (2) HTN (hypertension) Hypertension type: essential hypertension Qualified Code(s): I10 - Essential (primary) hypertension
[2021-07-26] MEDS ORDERED: ALBUT/IPRATROP 3MG/0.5MG NEB 3 ML VIAL NEB ONE (11:19)
[2021-07-26] MEDS: ATORVASTATIN 40 MG TAB PO SCH (12:51)
[2021-07-26] MEDS: WARFARIN SOD 10 MG TAB PO SCH (15:49)
[2021-07-26] MEDS: FUROSEMIDE 40 MG TAB PO SCH (16:43)
[2021-07-26] MEDS: MELATONIN 3 MG TAB PO PRN (21:09)
[2021-07-26] MEDS: guaiFENesin 600 MG TABCR PO SCH (21:10)
[2021-07-26] MEDS: INSULIN GLARGINE SOLOSTAR 100 UNITS/ML 3 ML PEN SC SCH (21:12)
[2021-07-27] MEDS: traMADol HCL 50 MG TABLET PO PRN ×4 (03:47→21:51)
[2021-07-27] MEDS: PANTOprazole 40 MG TAB PO SCH (07:05)
[2021-07-27 07:37] LABS: INR 1.7 (0.9-1.1); Prothrombin Time 16.7 Seconds (9.0-12.0)
[2021-07-27 08:04] LABS: BUN Creatinine Ratio 16.6 (10-20); Calcium 9.6 mg/dl (8.5-10.1); Creatinine Clr Calc Pharmacy 127.3 ml/min; Est GFR (African American) 76.8 ml/min; Est GFR (Non-African American) 66.2 ml/min; Magnesium 2.3 mg/dl (1.8-2.4); Potassium 4.1 mmol/L (3.5-5.1)
[2021-07-27] MEDS: buprenorphine HCL 8 MG SUBL SL SCH ×3 (09:15→21:52)
[2021-07-27] MEDS: LORazepam 0.5 MG TAB PO PRN ×2 (09:15→21:52)
[2021-07-27] MEDS: DOCUSATE SODIUM 100 MG CAP PO SCH ×2 (09:15→21:52)
[2021-07-27] MEDS: FLUTICASONE PROPIONATE NA SPR 16 GM BTL SCH (09:16)
[2021-07-27] MEDS: POLYETHYLENE (MIRALAX) 17 GM PACK PO SCH (09:16)
[2021-07-27] MEDS: NICOTINE 21 MG/24 HR TDSY TD SCH (09:16)
[2021-07-27] MEDS: TAMSULOSIN HCL 0.4 MG CAP PO SCH (09:17)
[2021-07-27] MEDS: SPIRONOLACTONE 25 MG TAB PO SCH (09:17)
[2021-07-27] MEDS: POTASSIUM CHLORIDE CRTAB 20 MEQ TABCR PO SCH ×2 (09:17→21:53)
[2021-07-27] MEDS: guaiFENesin 600 MG TABCR PO SCH ×2 (09:19→21:55)
[2021-07-27] MEDS: FUROSEMIDE 40 MG TAB PO SCH ×2 (09:19→17:58)
[2021-07-27] MEDS: ADVANCED PROBIOTIC 1250 MG CAPSULE PO SCH ×3 (09:19→21:54)
[2021-07-27] MEDS: ISOSORBIDE MONO EXTENDED REL 30 MG TABCR PO SCH (09:19)
[2021-07-27] MEDS: GABAPENTIN 800 MG TAB PO SCH ×3 (09:20→21:55)
[2021-07-27] MEDS: FOLIC ACID 1 MG TAB PO SCH (09:20)
[2021-07-27] MEDS: DULoxetine HCL 60 MG CAP PO SCH (09:20)
[2021-07-27] MEDS: ASPIRIN 81 MG ECTAB PO SCH (09:20)
[2021-07-27] MEDS: FLUTICASONE/VILANTEROL 100/25MCG 14 PUFFS/INHALER INH SCH (09:20)
[2021-07-27] MEDS: FINASTERIDE 5 MG TAB PO SCH (09:20)
[2021-07-27] MEDS: FAMOTIDINE 20 MG TAB PO SCH (09:20)
[2021-07-27] MEDS: ENOXAPARIN INJ 40 MG/0.4 ML SYR SQ SCH ×2 (09:21→21:54)
[2021-07-27] MEDS: UMECLIDINIUM BROMIDE 62.5MCG/BLISTER 7 PUFFS/INHALER INH SCH (09:21)
[2021-07-27] MEDS: INSULIN ASPART 100 UNITS/ML 3 ML PEN SC SCH ×4 (09:33→21:56)
[2021-07-27] MEDS: METOPROLOL SUCC 25MG EXT REL TAB PO SCH ×2 (09:33→21:53)
[2021-07-27] MEDS: ATORVASTATIN 40 MG TAB PO SCH (12:48)
[2021-07-27] MEDS: WARFARIN SOD 10 MG TAB PO SCH (15:44)
[2021-07-27] MEDS ORDERED: KETOROLAC TROMETHAMINE 15 MG/ML VIAL IV ONE (19:50)
--- NOTE | 2021-07-27 21:49 | Hospitalist Progress Note ---
Date of Service July 27, 2021 Assessment & Plan (1) Acute on chronic diastolic heart failure: Plan: Presented with about 20 pounds weight gain in a few days with associated shortness of breath and increasing leg swelling Noted to have chest x-ray evidence of CHF started on intravenous furosemide and has continued this for many days. He is overall net negative and feeling at his baseline. Needs follow-up with cardiology upon discharge. Currently remains on Lasix 40 mg twice daily and spironolactone 25 milligrams daily. Continue monitor ins and outs along with daily weights. Stable and awaiting discharge. (2) Chronic pain disorder: Plan: Reports of generalized knee pain as above. One dose of Toradol authorized "to try." Has been on Subutex SL TID and Tramadol PRN which he takes consistently. Has a h/o opiate use disorder. Again attempting to get narcotics because of a SNF restriction. There will be no changes to his pain regimen at this time. Cont current therapy per outpatient regimen. (3) COPD exacerbation: Plan: Chronic respiratory failure with hypoxia--uses 4 L at bedtime and intermittently H/O COPD and felt to have a possible mild exacerbation on admission. Clear lungs on auscultation today-no evidence of exacerbation at this time. Will palliate with scheduled Mucinex, bronchodilators PRN. Cont home inhaler therapy. Currently oxygenating well on room air. Strongly encouraged smoking cessation. (4) Urinary tract infection associated with catheterization of urinary tract: Plan: H/O Indwelling Fontaine catheter with recurrent urinary tract infection, POA. Likely secondary to chronic Fontaine catheter Urine culture growing , Enterococcus faecalis, nonfermenter species Changed Fontaine catheter completed antibiotic course this admission (5) DM type 2 (diabetes mellitus, type 2): Plan: Controlled as inpatient, cont current insulin regimen. (6) Anticoagulated on Coumadin: Plan: H/O PE and DVT, continues on Lovenox bridge with daily coumadin at increased dose of 10mg daily. INR still subtherapeutic. Cont current therapy and repeat INR in am. Stop Lovenox when INR>2. (7) HTN (hypertension): Plan: controlled, cont current therapy. (8) Hematochezia: Plan: Bright red blood per rectum reported earlier in admisison, which has now resolved. H/H has remained stable. Continues on bridging therapy with Lovenox to coumadin. Out patient GI followup recommended. (9) Morbid obesity: Plan: Continued to recommend Weight loss. (10) Right knee pain: Plan: Complaint right knee pain following a pop earlier this admission. Xray revealed no acute fracture. There is no clear abnormality on exam and patient is not reporting pain and is reporting that he can ambulate well around the room. No further investigation. Generalized knee pain now being reported as "compensation from avoiding pain in other joints" --one dose Toradol given above. Would not consistently use NSAIDs in setting of coumadin use to avoid bleeding risk. Pt verbalized understanding of this. (11) DVT prophylaxis: Plan: Coumadin daily with Lovenox bridge continued until INR>2 Full Code Dispo-awaiting SNF placement, but if patient is walking around well and perform ing ADLs this should be re-evaluated as he may be well enough to just go home. Defer to PT and OT. Mala Grace DO [facility] Ad[facility] and Anticipated Discharge Date Admission Date: July 05, 2021 Subjective 51 yo M admitted for acute shortness of breath and weight gain. He was treated for a CHF exacerbation and appears clinically compensated at this time. Denies SOB, chest pain or worsening of his chronic pain but then went into having knee pain--didn't specify which knee--and reports "new" pain from compensating on it with all his other joint pains he deals with. He is requesting something "nonnarcotic" for this, and landed on Toradol. Although he understands this is an NSAID and Motrin would be just as effective and may last longer, he "wants the IV". Today he is fixated on telling me how much pain he is in, and how his pain medications again need to be changed. I re-emphasized the need to lose weight to help offload the joints and to quit smoking as two modifiable risk factors. He understands long-term NSAIDs are not an option because of his warfarin. Review of Systems Review of Systems: All other systems were reviewed and negative except as indicated in subjective above. Physical Exam Physical Exam: CONSTITUTIONAL: obese, vitals as above, generally well- appearing, NAD EYES: normal conjunctivae, no scleral icterus ENT: external ear and nose normal, MMM RESPIRATORY: CTA throughout, no rales or yeimi wheezes, normal respiratory effort, not on supplemental oxygen and no conversational dyspnea when speaking in full sentences. CARDIOVASCULAR: regular rate and rhythm, S1 and 2 heard without murmurs, gallops or rubs, no JVD, no peripheral edema GASTROINTESTINAL: soft, nontender, ND, no guarding, protuberant. MUSCULOSKELETAL: strength 5/5 throughout, head is normocephalic and atraumatic : fontaine catheter in place. SKIN: warm and dry, multiple scratches apparent on legs, nothing overtly open or draining. NEUROLOGIC: No facial palsy, no dysarthria. CN 2-12 grossly intact, no sensory deficit, normal cognition, normal speech PSYCHIATRIC: alert cooperative and oriented to person, place and time. Results & Data Results & Data ([facility]) Vital Signs (Past 12 Hours) Vital Signs Temp Pulse Resp BP Pulse Ox 07/27/21 14:06 36.7 C 67 19 120/69 94 Laboratory Results [facility] 07/27/21 07:04 Sodium 139 Potassium 4.1 Chloride 101 Carbon Dioxide 33 H BUN 21 H Creatinine 1.25 Glucose 121 H Calcium 9.6 Medications Administered Current Inpatient Medications Albuterol (Albuterol Hfa 8 Gm Inhaler) 2 puffs INH Q4 PRN PRN Reason: Dyspnea Stop: 08/04/21 06:04 Last Admin: 07/15/21 19:32 Dose: 2 puffs Documented by: Albuterol (Albut/Ipratrop 3mg/0.5mg Neb 3 Ml Vial) 3 ml INH Q6H PRN PRN Reason: Shortness Of Breath Or Wheezing Stop: 08/04/21 06:04 Aspirin (Aspirin 81 Mg Ectab) 81 mg PO QAM [facility] Stop: 08/04/21 08:59 Last Admin: 07/27/21 09:20 Dose: 81 mg Documented by: Atorvastatin Calcium (Atorvastatin 40 Mg Tab) 80 mg PO QDL EMPERATRIZ Stop: 08/04/21 11:29 Last Admin: 07/27/21 12:48 Dose: 80 mg Documented by: Buprenorphine HCl (Buprenorphine Hcl 8 Mg Subl) 8 mg SL TID [facility] Stop: 08/04/21 08:59 Last Admin: 07/27/21 14:12 Dose: 8 mg Documented by: Cyclobenzaprine HCl (Cyclobenzaprine Hcl 10 Mg Tab) 10 mg PO BID PRN PRN Reason: Muscle Spasm Stop: 08/04/21 06:04 Last Admin: 07/06/21 09:02 Dose: 10 mg Documented by: Diclofenac Sodium (Diclofenac Sod 1% Gel 100 Gm Tube) 2 gm EXT QID PRN PRN Reason: knee pain Stop: 08/12/21 08:59 Last Admin: 07/17/21 21:09 Dose: 2 gm Documented by: Docusate Sodium (Docusate Sodium 100 Mg Cap) 100 mg PO BID EMPERATRIZ Stop: 08/04/21 08:59 Last Admin: 07/27/21 09:15 Dose: 100 mg Documented by: Duloxetine HCl (Duloxetine Hcl 60 Mg Cap) 60 mg PO DAILY EMPERATRIZ Stop: 08/04/21 08:59 Last Admin: 07/27/21 09:20 Dose: 60 mg Documented by: Enoxaparin Sodium (Enoxaparin Inj 40 Mg/0.4 Ml Syr) 40 mg SQ Q12H EMPERATRIZ Stop: 08/09/21 09:29 Last Admin: 07/27/21 09:21 Dose: 40 mg Documented by: Ergocalciferol (Ergocalciferol 50,000 Units 1250 Mcg Cap) 50,000 units PO Fr@0900 EMPERATRIZ Stop: 08/10/21 08:59 Last Admin: 07/25/21 09:17 Dose: 50,000 units Documented by: Famotidine (Famotidine 20 Mg Tab) 20 mg PO DAILY EMPERATRIZ Stop: 08/04/21 08:59 Last Admin: 07/27/21 09:20 Dose: 20 mg Documented by: Finasteride (Finasteride 5 Mg Tab) 5 mg PO QAM EMPERATRIZ Stop: 08/04/21 08:59 Last Admin: 07/27/21 09:20 Dose: 5 mg Documented by: Fluticasone Propionate (Fluticasone Propionate Na Spr 16 Gm Btl) 2 sprays NA DAILY EMPERATRIZ Stop: 08/04/21 08:59 Last Admin: 07/27/21 09:16 Dose: 2 sprays Documented by: Fluticasone/Vilanterol (Fluticasone/Vilanterol 100/25mcg 14 Puffs/Inhaler) 1 puffs INH DAILY EMPERATRIZ Stop: 08/04/21 08:59 Last Admin: 07/27/21 09:20 Dose: 1 puffs Documented by: Folic Acid (Folic Acid 1 Mg Tab) 1 mg PO QAM EMPERATRIZ Stop: 08/04/21 08:59 Last Admin: 07/27/21 09:20 Dose: 1 mg Documented by: Furosemide (Furosemide 40 Mg Tab) 40 mg PO BID17 EMPERATRIZ Stop: 08/25/21 16:59 Last Admin: 07/27/21 17:58 Dose: 40 mg Documented by: Gabapentin (Gabapentin 800 Mg Tab) 800 mg PO TID EMPERATRIZ Stop: 08/04/21 08:59 Last Admin: 07/27/21 14:12 Dose: 800 mg Documented by: Guaifenesin (Guaifenesin 600 Mg Tabcr) 600 mg PO Q12 EMPERATRIZ Stop: 08/25/21 20:59 Last Admin: 07/27/21 09:19 Dose: 600 mg Documented by: Insulin Aspart (Insulin Aspart 100 Units/Ml 3 Ml Pen) 0 units SC ACHS EMPERATRIZ Stop: 08/04/21 07:29 Last Admin: 07/27/21 18:01 Dose: 7 units Documented by: Insulin Glargine (Insulin Glargine Solostar 100 Units/Ml 3 Ml Pen) 50 units SC HS EMPERATRIZ Stop: 08/04/21 20:59 Last Admin: 07/26/21 21:12 Dose: 50 units Documented by: Isosorbide Mononitrate (Isosorbide Bailey Extended Rel 30 Mg Tabcr) 30 mg PO DAILY EMPERATRIZ Stop: 08/04/21 08:59 Last Admin: 07/27/21 09:19 Dose: 30 mg Documented by: Lactobacillus Acidoph/Casei/Rhamnos (Advanced Probiotic 1250 Mg Capsule) 2 cap PO TID EMPERATRIZ Stop: 08/04/21 08:59 Last Admin: 07/27/21 14:12 Dose: 2 cap Documented by: Lorazepam (Lorazepam 0.5 Mg Tab) 0.5 mg PO Q8 PRN PRN Reason: Anxiety Stop: 08/04/21 06:04 Last Admin: 07/27/21 09:15 Dose: 0.5 mg Documented by: Melatonin (Melatonin 3 Mg Tab) 9 mg PO HS PRN PRN Reason: Sleep Stop: 08/05/21 23:06 Last Admin: 07/26/21 21:09 Dose: 9 mg Documented by: Methenamine Hippurate (Methenamine Hippurate 1 Gm Tab) 1 gm PO DAILY EMPERATRIZ Stop: 08/04/21 08:59 Last Admin: 07/12/21 08:31 Dose: 1 gm Documented by: Metoprolol Succinate (Metoprolol Succ 25mg Ext Rel Tab) 75 mg PO BID [facility] Stop: 08/04/21 08:59 Last Admin: 07/27/21 09:33 Dose: 75 mg Documented by: Miscellaneous (Remove Nicoderm Patch) 1 ea N/A DAILY@0859 [facility] Stop: 08/04/21 08:58 Last Admin: 07/27/21 09:20 Dose: 1 ea Documented by: Nicotine (Nicotine 21 Mg/24 Hr Tdsy) 21 mg TD DAILY [facility] Stop: 08/04/21 08:59 Last Admin: 07/27/21 09:16 Dose: 21 mg Documented by: Nitroglycerin (Nitroglycerin Sl 0.4 Mg/Tab Tab) 0.4 mg SL UD PRN PRN Reason: Chest Pain Stop: 08/04/21 06:04 Nystatin (Nystatin Powder 15gm Btl) 1 appln EXT TID PRN PRN Reason: Skin Irritation Stop: 08/04/21 06:04 Ondansetron HCl (Ondansetron Inj 2 Mg/Ml 2 Ml Vial) 4 mg IV Q6H PRN PRN Reason: Nausea Stop: 08/04/21 06:04 Ondansetron HCl (Ondansetron 4 Mg Od Tab) 4 mg PO Q8 PRN PRN Reason: Nausea And Vomiting Stop: 08/04/21 07:09 Pantoprazole Sodium (Pantoprazole 40 Mg Tab) 40 mg PO DAILYBB [facility] Stop: 08/04/21 07:29 Last Admin: 07/27/21 07:05 Dose: 40 mg Documented by: Phenazopyridine HCl (Phenazopyridine Hcl 100 Mg Tab) 100 mg PO TID PRN PRN Reason: Dysuria Stop: 08/09/21 11:05 Last Admin: 07/14/21 14:11 Dose: 100 mg Documented by: Polyethylene Glycol (Polyethylene (Miralax) 17 Gm Pack) 17 gm PO DAILY PRN PRN Reason: Constipation Stop: 08/04/21 06:04 Polyethylene Glycol (Polyethylene (Miralax) 17 Gm Pack) 17 gm PO QAM EMPERATRIZ Stop: 08/04/21 08:59 Last Admin: 07/27/21 09:16 Dose: 17 gm Documented by: Potassium Chloride (Potassium Chloride Crtab 20 Meq Tabcr) 20 meq PO BID [facility] Stop: 08/04/21 08:59 Last Admin: 07/27/21 09:17 Dose: 20 meq Documented by: Sennosides (Senna 8.6 Mg Tab) 8.6 mg PO DAILY PRN PRN Reason: Constipation Stop: 08/04/21 06:04 Last Admin: 07/23/21 08:40 Dose: 8.6 mg Documented by: Spironolactone (Spironolactone 25 Mg Tab) 25 mg PO QAM [facility] Stop: 08/04/21 08:59 Last Admin: 07/27/21 09:17 Dose: 25 mg Documented by: Tamsulosin HCl (Tamsulosin Hcl 0.4 Mg Cap) 0.4 mg PO QAM [facility] Stop: 08/04/21 08:59 Last Admin: 07/27/21 09:17 Dose: 0.4 mg Documented by: Tramadol HCl (Tramadol Hcl 50 Mg Tablet) 100 mg PO Q6 PRN PRN Reason: Pain Stop: 08/04/21 06:04 Last Admin: 07/27/21 15:45 Dose: 100 mg Documented by: Umeclidinium [place] (Umeclidinium [place] 62.5mcg/Blister 7 Puffs/Inhaler) 1 [facility] Stop: 08/04/21 08:59 Last Admin: 07/27/21 09:21 Dose: 1 puffs Documented by: Warfarin Sodium (Warfarin Sod 10 Mg Tab) 10 mg PO DAILY@1600 [facility] Stop: 08/18/21 15:59 Last Admin: 07/27/21 15:44 Dose: 10 mg Documented by: (1) Urinary tract infection associated with catheterization of urinary tract Encounter type: initial encounter Indwelling urinary catheter type: indwelling urethral catheter Qualified Code(s): T83.511A - Infection and inflammatory reaction due to indwelling urethral catheter, initial encounter; N39.0 - Urinary tract infection, site not specified (2) HTN (hypertension) Hypertension type: essential hypertension Qualified Code(s): I10 - Essential (primary) hypertension
[2021-07-27] MEDS: MELATONIN 3 MG TAB PO PRN (21:52)
[2021-07-27] MEDS: INSULIN GLARGINE SOLOSTAR 100 UNITS/ML 3 ML PEN SC SCH (21:55)
[2021-07-28] MEDS: traMADol HCL 50 MG TABLET PO PRN ×3 (03:55→18:05)
[2021-07-28] MEDS: PANTOprazole 40 MG TAB PO SCH (06:38)
[2021-07-28] MEDS: buprenorphine HCL 8 MG SUBL SL SCH ×3 (08:49→21:21)
[2021-07-28] MEDS: ASPIRIN 81 MG ECTAB PO SCH (08:50)
[2021-07-28] MEDS: POTASSIUM CHLORIDE CRTAB 20 MEQ TABCR PO SCH ×2 (08:50→20:43)
[2021-07-28] MEDS: FOLIC ACID 1 MG TAB PO SCH (08:50)
[2021-07-28] MEDS: FAMOTIDINE 20 MG TAB PO SCH (08:50)
[2021-07-28] MEDS: SPIRONOLACTONE 25 MG TAB PO SCH (08:50)
[2021-07-28] MEDS: TAMSULOSIN HCL 0.4 MG CAP PO SCH (08:50)
[2021-07-28] MEDS: FINASTERIDE 5 MG TAB PO SCH (08:50)
[2021-07-28] MEDS: ISOSORBIDE MONO EXTENDED REL 30 MG TABCR PO SCH (08:51)
[2021-07-28] MEDS: GABAPENTIN 800 MG TAB PO SCH ×3 (08:51→20:44)
[2021-07-28] MEDS: guaiFENesin 600 MG TABCR PO SCH ×2 (08:51→20:44)
[2021-07-28] MEDS: METOPROLOL SUCC 25MG EXT REL TAB PO SCH ×2 (08:51→20:45)
[2021-07-28] MEDS: FUROSEMIDE 40 MG TAB PO SCH ×2 (08:51→18:07)
[2021-07-28] MEDS: DULoxetine HCL 60 MG CAP PO SCH (08:51)
[2021-07-28] MEDS: ADVANCED PROBIOTIC 1250 MG CAPSULE PO SCH ×3 (08:52→20:46)
[2021-07-28] MEDS: NICOTINE 21 MG/24 HR TDSY TD SCH (08:52)
[2021-07-28] MEDS: FLUTICASONE/VILANTEROL 100/25MCG 14 PUFFS/INHALER INH SCH (08:53)
[2021-07-28] MEDS: FLUTICASONE PROPIONATE NA SPR 16 GM BTL SCH (08:53)
[2021-07-28] MEDS: UMECLIDINIUM BROMIDE 62.5MCG/BLISTER 7 PUFFS/INHALER INH SCH (08:54)
[2021-07-28] MEDS: ENOXAPARIN INJ 40 MG/0.4 ML SYR SQ SCH ×2 (08:54→21:22)
[2021-07-28] MEDS: INSULIN ASPART 100 UNITS/ML 3 ML PEN SC SCH ×4 (08:56→21:23)
[2021-07-28] MEDS: POLYETHYLENE (MIRALAX) 17 GM PACK PO SCH (09:03)
[2021-07-28] MEDS: DOCUSATE SODIUM 100 MG CAP PO SCH ×2 (09:03→21:21)
[2021-07-28] MEDS: ATORVASTATIN 40 MG TAB PO SCH (11:31)
[2021-07-28] MEDS ORDERED: KETOROLAC TROMETHAMINE 15 MG/ML VIAL IV ONE (13:58)
--- NOTE | 2021-07-28 16:32 | Hospitalist Progress Note ---
Date of Service July 28, 2021 Assessment & Plan (1) Acute on chronic diastolic heart failure: Plan: Presented with about 20 pounds weight gain in a few days with associated shortness of breath and increasing leg swelling Noted to have chest x-ray evidence of CHF started on intravenous furosemide and has continued this for many days. He is overall net negative and feeling at his baseline. Needs follow-up with cardiology upon discharge. Currently remains on Lasix 40 mg twice daily and spironolactone 25 milligrams daily. Continue monitor ins and outs along with daily weights. Patient is clinically status quo. Currently awaiting discharge. (2) Chronic pain disorder: Plan: Reports of generalized knee pain as above. One dose of Toradol authorized "to try." Has been on Subutex SL TID and Tramadol PRN which he takes consistently. Has a h/o opiate use disorder. Again attempting to get narcotics because of a SNF restriction. There will be no changes to his pain regimen at this time. Cont current therapy per outpatient regimen. (3) COPD exacerbation: Plan: Chronic respiratory failure with hypoxia--uses 4 L at bedtime and intermittently H/O COPD and felt to have a possible mild exacerbation on admission. Clear lungs on auscultation today-no evidence of exacerbation at this time. Will palliate with scheduled Mucinex, bronchodilators PRN. Cont home inhaler therapy. Currently oxygenating well on room air. Strongly encouraged smoking cessation. (4) Urinary tract infection associated with catheterization of urinary tract: Plan: H/O Indwelling Lloyd catheter with recurrent urinary tract infection, POA. Likely secondary to chronic Lloyd catheter Urine culture growing , Enterococcus faecalis, nonfermenter species Changed Lloyd catheter completed antibiotic course this admission (5) DM type 2 (diabetes mellitus, type 2): Plan: Controlled as inpatient, cont current insulin regimen. (6) Anticoagulated on Coumadin: Plan: H/O PE and DVT, continues on Lovenox bridge with daily coumadin at increased dose of 10mg daily. INR still subtherapeutic. Cont current therapy and repeat INR in am. Stop Lovenox when INR>2. (7) HTN (hypertension): Plan: controlled, cont current therapy. (8) Hematochezia: Plan: Bright red blood per rectum reported earlier in admisison, which has now resolved. H/H has remained stable. Continues on bridging therapy with Lovenox to coumadin. Out patient GI followup recommended. (9) Morbid obesity: Plan: Continued to recommend Weight loss. (10) Right knee pain: Plan: Complaint right knee pain following a pop earlier this admission. Xray revealed no acute fracture. There is no clear abnormality on exam and patient is not reporting pain and is reporting that he can ambulate well around the room. No further investigation. Generalized knee pain now being reported as "compensation from avoiding pain in other joints" --one dose Toradol given above. Would not consistently use NSAIDs in setting of coumadin use to avoid bleeding risk. (11) DVT prophylaxis: Plan: Coumadin daily with Lovenox bridge continued until INR>2 Full Code Dispo-awaiting SNF placement, but if patient is walking around well and performing ADLs this should be re-evaluated as he may be well enough to just go home. Defer to PT and OT. Admission and Anticipated Discharge Date Admission Date: July 05, 2021 Subjective Doing okay this morning. Clinically status quo. No new issues. Review of Systems Review of Systems: All systems reviewed & are unremarkable except as noted in HPI & below Physical Exam Physical Exam: General: A&Ox3. HENT: NCAT, MMM, EOMI Eyes: PERRLA Neck: Supple, normal range of motion CVS: normal rate and rhythm Resp: b/l decrease breath sounds Abdomen: Soft, ND/NT Extremities: No c/c/e Neuro: face symmetric, no focal deficit Skin: warm and dry MSK: no joint swelling/erythema Lloyd catheter in place. Results & Data Results & Data ([facility]) Vital Signs (Past 12 Hours) Vital Signs Temp Pulse Pulse Resp BP BP Pulse Ox 07/28/21 14:54 36.9 C 60 16 114/68 96 07/28/21 09:09 62 138/62 07/28/21 07:11 36.5 C 55 L 20 145/76 H 99 (1) Urinary tract infection associated with catheterization of urinary tract Encounter type: initial encounter Indwelling urinary catheter type: indwelling urethral catheter Qualified Code(s): T83.511A - Infection and inflammatory reaction due to indwelling urethral catheter, initial encounter; N39.0 - Urinary tract infection, site not specified (2) HTN (hypertension) Hypertension type: essential hypertension Qualified Code(s): I10 - Essential (primary) hypertension
[2021-07-28] MEDS: WARFARIN SOD 10 MG TAB PO SCH (18:08)
[2021-07-28] MEDS: DICLOFENAC SOD 1% GEL 100 GM TUBE EXT PRN (20:42)
[2021-07-28] MEDS: INSULIN GLARGINE SOLOSTAR 100 UNITS/ML 3 ML PEN SC SCH (21:22)
[2021-07-28] MEDS: MELATONIN 3 MG TAB PO PRN (22:00)
[2021-07-28] MEDS: LORazepam 0.5 MG TAB PO PRN (22:00)
[2021-07-29] MEDS: traMADol HCL 50 MG TABLET PO PRN ×4 (00:18→18:28)
[2021-07-29] MEDS: NYSTATIN OINT 15 GM TUBE EXT SCH ×3 (00:31→21:02)
[2021-07-29] MEDS: PANTOprazole 40 MG TAB PO SCH (05:41)
--- NOTE | 2021-07-29 07:07 | XRay Report ---
XR chest 1V portable CLINICAL HISTORY: coigh. COMPARISON STUDY: 07/25/2021 TECHNIQUE: 1 view of the chest FINDINGS: Single frontal view of the chest demonstrates the cardiomediastinal silhouette to be within normal li mits. There is a decreased inspiratory effort with elevation of the hemidiaphragms and crowding of th e bronchovascular markings at the lung bases and centrally. The lungs are clear of alveolar opacities . There is no evidence for pleural effusion. There is no evidence for vascular congestion. There is n o acute osseous pathology. IMPRESSION: There is a decreased inspiratory effort with otherwise no acute chest disease. ACT 112: Negative or not required by law. Electronically signed by: Sandip Chawla M.D. 07/29/2021 7:06 AM
[2021-07-29] MEDS: DOCUSATE SODIUM 100 MG CAP PO SCH ×2 (08:45→20:55)
[2021-07-29] MEDS: DULoxetine HCL 60 MG CAP PO SCH (08:45)
[2021-07-29] MEDS: ASPIRIN 81 MG ECTAB PO SCH (08:45)
[2021-07-29] MEDS: NICOTINE 21 MG/24 HR TDSY TD SCH (08:46)
[2021-07-29] MEDS: FINASTERIDE 5 MG TAB PO SCH (08:46)
[2021-07-29] MEDS: FOLIC ACID 1 MG TAB PO SCH (08:46)
[2021-07-29] MEDS: METOPROLOL SUCC 25MG EXT REL TAB PO SCH ×2 (08:46→21:00)
[2021-07-29] MEDS: FAMOTIDINE 20 MG TAB PO SCH (08:46)
[2021-07-29] MEDS: guaiFENesin 600 MG TABCR PO SCH ×2 (08:46→20:59)
[2021-07-29] MEDS: ADVANCED PROBIOTIC 1250 MG CAPSULE PO SCH ×3 (08:46→21:00)
[2021-07-29] MEDS: POTASSIUM CHLORIDE CRTAB 20 MEQ TABCR PO SCH ×2 (08:46→21:01)
[2021-07-29] MEDS: SPIRONOLACTONE 25 MG TAB PO SCH (08:46)
[2021-07-29] MEDS: GABAPENTIN 800 MG TAB PO SCH ×3 (08:46→20:59)
[2021-07-29] MEDS: TAMSULOSIN HCL 0.4 MG CAP PO SCH (08:46)
[2021-07-29] MEDS: ISOSORBIDE MONO EXTENDED REL 30 MG TABCR PO SCH (08:46)
[2021-07-29] MEDS: FUROSEMIDE 40 MG TAB PO SCH ×2 (08:46→17:55)
[2021-07-29] MEDS: FLUTICASONE/VILANTEROL 100/25MCG 14 PUFFS/INHALER INH SCH (08:47)
[2021-07-29] MEDS: UMECLIDINIUM BROMIDE 62.5MCG/BLISTER 7 PUFFS/INHALER INH SCH (08:47)
[2021-07-29] MEDS: buprenorphine HCL 8 MG SUBL SL SCH ×3 (08:48→20:53)
[2021-07-29] MEDS: FLUTICASONE PROPIONATE NA SPR 16 GM BTL SCH (08:48)
[2021-07-29] MEDS: POLYETHYLENE (MIRALAX) 17 GM PACK PO SCH (08:49)
[2021-07-29] MEDS: ENOXAPARIN INJ 40 MG/0.4 ML SYR SQ SCH ×2 (08:49→21:01)
[2021-07-29] MEDS: INSULIN ASPART 100 UNITS/ML 3 ML PEN SC SCH ×4 (08:52→21:05)
[2021-07-29] MEDS: LORazepam 0.5 MG TAB PO PRN ×2 (08:56→20:17)
[2021-07-29] MEDS: ATORVASTATIN 40 MG TAB PO SCH (12:41)
[2021-07-29] MEDS ORDERED: KETOROLAC TROMETHAMINE 15 MG/ML VIAL IV ONE (14:17)
[2021-07-29] MEDS ORDERED: KETOROLAC TROMETHAMINE 15 MG/ML VIAL ONE (14:19)
[2021-07-29] MEDS ORDERED: MoRPHine SULFATE 4 MG/ML 1 ML CARP\\VIAL IV STA (14:36)
--- NOTE | 2021-07-29 15:34 | CT Scan Report ---
CT SCAN OF THE BRAIN WITHOUT IV CONTRAST CLINICAL HISTORY: Fall. Head injury. COMPARISON STUDY: CT of the brain dated 06/09/2021. TECHNIQUE: Unenhanced axial CT scan of the brain is performed from the vertex to the skull base. A d ose lowering technique was utilized adhering to the principles of ALARA. CT DOSE: 712.55 mGy.cm FINDINGS: Brain parenchyma: The brain parenchyma is normal in appearance. There is no hemorrhage, mass effect, or evidence of acute territorial ischemia by CT criteria. Lagunas-white matter differentiation is preser nani. No extra-axial fluid collection is seen. Ventricles, sulci, cisterns: Normal in configuration. Intracranial vasculature: The visualized intracranial vasculature at the skull base is normal in appe arance. Calvarium: There is no depressed calvarial fracture. Soft tissues: There is frontal scalp hematoma. Sinuses and mastoids: There is subtotal opacification of the right maxillary antrum and the right sph enoid sinus. There is moderate mucosal thickening within the ethmoid sinuses. Trace mucosal thickenin g is seen within the frontal, left maxillary, and the sphenoid sinuses. Question previous paranasal s inus surgery. There is a small left mastoid effusion. The right mastoid air cells are well pneumatize d. Orbits: The bony orbits are grossly intact. IMPRESSION: 1. There is no hemorrhage, mass effect, or evidence of acute territorial ischemia by CT criteria. 2. Frontal scalp injury. 3. Paranasal sinus disease as above. ACT 112: Negative or not required by law. Electronically signed by: Misael Lopez M.D. 07/29/2021 3:33 PM
--- NOTE | 2021-07-29 15:40 | Hospitalist Progress Note ---
Date of Service July 29, 2021 Assessment & Plan (1) Acute on chronic diastolic heart failure: Plan: Presented with about 20 pounds weight gain in a few days with associated shortness of breath and increasing leg swelling Noted to have chest x-ray evidence of CHF started on intravenous furosemide and has continued this for many days. He is overall net negative and feeling at his baseline. Needs follow-up with cardiology upon discharge. Currently remains on Lasix 40 mg twice daily and spironolactone 25 milligrams daily. Continue monitor ins and outs along with daily weights. Patient is clinically status quo. Currently awaiting discharge. However, as per care management it is unlikely that he will be able to be placed anywhere. (2) Chronic pain disorder: Plan: Reports of generalized knee pain as above. One dose of Toradol authorized "to try." Has been on Subutex SL TID and Tramadol PRN which he takes consistently. Has a h/o opiate use disorder. Again attempting to get narcotics because of a SNF restriction. There will be no changes to his pain regimen at this time. Cont current therapy per outpatient regimen. (3) COPD exacerbation: Plan: Chronic respiratory failure with hypoxia--uses 4 L at bedtime and intermittently H/O COPD and felt to have a possible mild exacerbation on admission. Clear ricky gs on auscultation today-no evidence of exacerbation at this time. Will palliate with scheduled Mucinex, bronchodilators PRN. Cont home inhaler therapy. Currently oxygenating well on room air. Strongly encouraged smoking cessation. (4) Urinary tract infection associated with catheterization of urinary tract: Plan: H/O Indwelling Lloyd catheter with recurrent urinary tract infection, POA. Likely secondary to chronic Lloyd catheter Urine culture growing , Enterococcus faecalis, nonfermenter species Changed Lloyd catheter completed antibiotic course this admission (5) DM type 2 (diabetes mellitus, type 2): Plan: Controlled as inpatient, cont current insulin regimen. (6) Anticoagulated on Coumadin: Plan: H/O PE and DVT, continues on Lovenox bridge with daily coumadin at increased dose of 10mg daily. INR still subtherapeutic. Cont current therapy and repeat INR in am. Stop Lovenox when INR>2. (7) HTN (hypertension): Plan: controlled, cont current therapy. (8) Hematochezia: Plan: Bright red blood per rectum reported earlier in admisison, which has now resolved. H/H has remained stable. Continues on bridging therapy with Lovenox to coumadin. Out patient GI followup recommended. (9) Morbid obesity: Plan: Continued to recommend Weight loss. (10) Right knee pain: Plan: Complaint right knee pain following a pop earlier this admission. Xray revealed no acute fracture. There is no clear abnormality on exam and patient is not reporting pain and is reporting that he can ambulate well around the room. No further investigation. Generalized knee pain now being reported as "compensation from avoiding pain in other joints" --one dose Toradol given above. Would not consistently use NSAIDs in setting of coumadin use to avoid bleeding risk. (11) DVT prophylaxis: Plan: Coumadin daily with Lovenox bridge continued until INR>2 Full Code Dispo-awaiting SNF placement, but if patient is walking around well and performing ADLs this should be re-evaluated as he may be well enough to just go home. Defer to PT and OT. Admission and Anticipated Discharge Date Admission Date: July 05, 2021 Subjective Overall doing okay. No new issues. However patient is upset about his fluid restriction. Rest of the review of system is negative. Review of Systems Review of Systems: All systems reviewed & are unremarkable except as noted in HPI & below Physical Exam Physical Exam: General: A&Ox3. HENT: NCAT, MMM, EOMI Eyes: PERRLA Neck: Supple, normal range of motion CVS: normal rate and rhythm Resp: b/l decrease breath sounds Abdomen: Soft, ND/NT Extremities: No c/c/e Neuro: face symmetric, no focal deficit Skin: warm and dry MSK: no joint swelling/erythema Lloyd catheter in place. Results & Data Results & Data ([facility]) Vital Signs (Past 12 Hours) Vital Signs Temp Pulse Resp BP Pulse Ox 07/29/21 14:09 36.8 C 69 120/72 93 07/29/21 08:11 36.6 C 67 16 130/62 99 (1) Urinary tract infection associated with catheterization of urinary tract Encounter type: initial encounter Indwelling urinary catheter type: indwelling urethral catheter Qualified Code(s): T83.511A - Infection and inflammatory reaction due to indwelling urethral catheter, initial encounter; N39.0 - Urinary tract infection, site not specified (2) HTN (hypertension) Hypertension type: essential hypertension Qualified Code(s): I10 - Essential (primary) hypertension
--- NOTE | 2021-07-29 15:44 | Communication Note ---
Date of Service: July 29, 2021 Was notified by RN that patient took a fall in the bathroom. Plan to do evaluate the patient immediately. Patient reported that he was sitting on the commode when he started experiencing shakiness and fell forward. States he did pass out. Patient is very tearful right now. Ports he is having significant pain in the left upper extremity and believes he has a fracture. Reports he did have his episodes in the past. Denies any chest pain, shortness of breath, palpitations or any dizziness. Absence of any confusion. Hemodynamically patient is doing fine. Found to have superficial laceration on the face. Will obtain stat CT head in the setting of Coumadin therapy and left upper extremity x-rays.
--- NOTE | 2021-07-29 16:01 | XRay Report ---
XR forearm LT 2V, XR humerus LT 2V CLINICAL HISTORY: fall TECHNIQUE: 2 views of the right forearm were obtained. 2 views of the left humerus were obtained. Comparison: None available at the time of this dictation. FINDINGS: There is no evidence of acute fracture or dislocation. The visualized joint spaces are well-maintaine d. The alignment is anatomical. The visualized soft tissues are unremarkable. There are no osseous le sions or erosions identified. IMPRESSION: No evidence of acute bony injury. ACT 112: Negative or not required by law. Electronically signed by: Armand Tobar M.D. 07/29/2021 4:00 PM
[2021-07-29 16:14] LABS: Basophils # (auto) 0.03 K/uL (0-0.2); Basophils % (auto) 0.3 %; Eosinophils # (auto) 0.54 K/uL (0-0.5); Eosinophils % (auto) 4.9 %; Hematocrit (blood only) 39.4 % (42-52); Hemoglobin 12.5 g/dL (14.0-18.0); Immature Granulocytes # (auto) 0.03 K/uL (0.00-0.02); Immature Granulocytes % (auto) 0.3 %; Lymphocytes # (auto) 1.93 K/uL (1.2-3.4); Lymphocytes % (auto) 17.6 %; Mean Corpuscular Hemoglobin 26.2 pg (25-34); Mean Corpuscular Volume 82.6 fL (80-100); Monocytes % (auto) 7.3 %; Neutrophils # (auto) 7.65 K/uL (1.4-6.5); Neutrophils % (auto) 69.6 %; Platelet Count 225 K/uL (130-400); RDW Coefficient of Variation 17.3 % (11.5-14.5); RDW Standard Deviation 52.6 fL (36.4-46.3); Red Blood Count 4.77 M/uL (4.7-6.1); White Blood Count 10.98 K/uL (4.8-10.8)
[2021-07-29] MEDS: WARFARIN SOD 10 MG TAB PO SCH (16:20)
[2021-07-29 16:23] LABS: INR 2.5 (0.9-1.1); Prothrombin Time 23.7 Seconds (9.0-12.0)
[2021-07-29 16:32] LABS: Albumin Level 2.9 gm/dl (3.4-5.0); BUN Creatinine Ratio 19.2 (10-20); Calcium 9.1 mg/dl (8.5-10.1); Creatinine Clr Calc Pharmacy 128.4 ml/min; Est GFR (African American) 76.8 ml/min; Est GFR (Non-African American) 66.2 ml/min; Potassium 4.6 mmol/L (3.5-5.1)
[2021-07-29 16:34] LABS: Albumin Globulin Ratio 0.7 (0.9-2); Bilirubin,Total 0.6 mg/dl (0.2-1); Globulin 4.3 gm/dl (2.5-4.0); Total Protein 7.2 gm/dl (6.4-8.2)
[2021-07-29 16:41] LABS: Mean Corpuscular Hgb Conc 31.7 g/dL (32-36)
[2021-07-29] MEDS ORDERED: ACETAMINOPHEN 1000 MG/100 ML IV IV PRN (19:44)
[2021-07-29] MEDS ORDERED: ACETAMINOPHEN 500 MG TAB PO PRN (19:52)
[2021-07-29] MEDS: MELATONIN 3 MG TAB PO PRN (20:54)
[2021-07-29] MEDS: INSULIN GLARGINE SOLOSTAR 100 UNITS/ML 3 ML PEN SC SCH (21:04)
[2021-07-30] MEDS: traMADol HCL 50 MG TABLET PO PRN ×4 (00:40→19:46)
[2021-07-30] MEDS: PANTOprazole 40 MG TAB PO SCH (05:44)
[2021-07-30 06:46] LABS: Prothrombin Time 27.7 Seconds (9.0-12.0)
[2021-07-30] MEDS: SPIRONOLACTONE 25 MG TAB PO SCH (09:09)
[2021-07-30] MEDS: LORazepam 0.5 MG TAB PO PRN ×2 (09:09→22:34)
[2021-07-30] MEDS: ADVANCED PROBIOTIC 1250 MG CAPSULE PO SCH ×3 (09:09→21:04)
[2021-07-30] MEDS: DULoxetine HCL 60 MG CAP PO SCH (09:09)
[2021-07-30] MEDS: TAMSULOSIN HCL 0.4 MG CAP PO SCH (09:09)
[2021-07-30] MEDS: METOPROLOL SUCC 25MG EXT REL TAB PO SCH ×2 (09:09→21:05)
[2021-07-30] MEDS: buprenorphine HCL 8 MG SUBL SL SCH ×3 (09:09→21:09)
[2021-07-30] MEDS: POTASSIUM CHLORIDE CRTAB 20 MEQ TABCR PO SCH (09:09)
[2021-07-30] MEDS: GABAPENTIN 800 MG TAB PO SCH ×3 (09:10→21:04)
[2021-07-30] MEDS: FINASTERIDE 5 MG TAB PO SCH (09:10)
[2021-07-30] MEDS: FAMOTIDINE 20 MG TAB PO SCH (09:10)
[2021-07-30] MEDS: ASPIRIN 81 MG ECTAB PO SCH (09:10)
[2021-07-30] MEDS: ISOSORBIDE MONO EXTENDED REL 30 MG TABCR PO SCH (09:10)
[2021-07-30] MEDS: guaiFENesin 600 MG TABCR PO SCH ×2 (09:10→21:04)
[2021-07-30] MEDS: FOLIC ACID 1 MG TAB PO SCH (09:10)
[2021-07-30] MEDS: FUROSEMIDE 40 MG TAB PO SCH (09:10)
[2021-07-30] MEDS: UMECLIDINIUM BROMIDE 62.5MCG/BLISTER 7 PUFFS/INHALER INH SCH (09:11)
[2021-07-30] MEDS: FLUTICASONE/VILANTEROL 100/25MCG 14 PUFFS/INHALER INH SCH (09:11)
[2021-07-30] MEDS: NICOTINE 21 MG/24 HR TDSY TD SCH (09:11)
[2021-07-30] MEDS: FLUTICASONE PROPIONATE NA SPR 16 GM BTL SCH (09:11)
[2021-07-30] MEDS: INSULIN ASPART 100 UNITS/ML 3 ML PEN SC SCH ×4 (09:12→21:17)
[2021-07-30] MEDS: NYSTATIN OINT 15 GM TUBE EXT SCH ×2 (09:12→21:05)
[2021-07-30] MEDS: DOCUSATE SODIUM 100 MG CAP PO SCH ×2 (09:45→21:29)
[2021-07-30] MEDS: POLYETHYLENE (MIRALAX) 17 GM PACK PO SCH (09:45)
[2021-07-30] MEDS ORDERED: MoRPHine SULFATE 4 MG/ML 1 ML CARP\\VIAL IV STA ×2 (09:59→10:14)
[2021-07-30] MEDS ORDERED: MoRPHine SULFATE 4 MG/ML 1 ML CARP\\VIAL ONE (10:07)
[2021-07-30 10:08] LABS: Basophils # (auto) 0.04 K/uL (0-0.2); Basophils % (auto) 0.3 %; Eosinophils # (auto) 0.64 K/uL (0-0.5); Eosinophils % (auto) 5.4 %; Hematocrit (blood only) 39.4 % (42-52); Immature Granulocytes # (auto) 0.02 K/uL (0.00-0.02); Immature Granulocytes % (auto) 0.2 %; Lymphocytes # (auto) 3.01 K/uL (1.2-3.4); Lymphocytes % (auto) 25.6 %; Mean Corpuscular Hemoglobin 26.2 pg (25-34); Mean Corpuscular Hgb Conc 30.5 g/dL (32-36); Mean Platelet Volume 11.1 fL (7.4-10.4); Monocytes # (auto) 0.99 K/uL (0.11-0.59); Monocytes % (auto) 8.4 %; Neutrophils # (auto) 7.05 K/uL (1.4-6.5); Neutrophils % (auto) 60.1 %; Platelet Count 224 K/uL (130-400); RDW Coefficient of Variation 17.6 % (11.5-14.5); RDW Standard Deviation 55.4 fL (36.4-46.3); Red Blood Count 4.58 M/uL (4.7-6.1); White Blood Count 11.75 K/uL (4.8-10.8)
[2021-07-30 10:19] LABS: BUN Creatinine Ratio 17.5 (10-20); Calcium 8.9 mg/dl (8.5-10.1); Creatinine Clr Calc Pharmacy 109.2 ml/min; Est GFR (African American) 64.7 ml/min; Est GFR (Non-African American) 55.8 ml/min
--- NOTE | 2021-07-30 11:13 | CT Scan Report ---
CT head/brain wo con CLINICAL HISTORY: Status post fall yesterday. Forehead laceration. Evaluate for hemorrhage. COMPARISON STUDY: 07/29/2021 CT DOSE: 601.98 mGy.cm TECHNIQUE: Standard CT of the Brain was performed without IV contrast. A dose lowering technique was utilized adhering to the principles of ALARA. FINDINGS: Extraaxial space: There is no evidence for subdural hematoma. There are no extra-axial fluid collecti ons. Ventricles and cisterns: The ventricles are normal in size and configuration. There is no evidence f or midline shift or mass effect. Parenchyma: There is no subarachnoid or intraparenchymal hemorrhage. There is no evidence for an acu te infarct or cerebral edema. There is homogeneous attenuation of the brain parenchyma. There are no gross mass lesions. Osseous structures: There is no evidence for an acute fracture. There is again opacification right sp henoid sinus with mucosal thickening of the right maxillary and ethmoid sinuses. The remaining visual ized paranasal sinuses are clear. The mastoid air cells are clear bilaterally. Soft tissues: Compared to previous examination, there is now a small to moderate-sized subgaleal hem atoma anterior to the forehead. IMPRESSION: No acute intracerebral pathology. Compared to the previous examination, there is now a sm all to moderate-sized subgaleal hematoma anterior to the forehead. There is again evidence for sinusi tis. ACT 112: Negative or not required by law. Electronically signed by: Sandip Chawla M.D. 07/30/2021 11:12 AM
--- NOTE | 2021-07-30 11:38 | CT Scan Report ---
CT shoulder LT wo con, CT humerus LT wo con, CT forearm LT wo con, CT elbow LT wo con CLINICAL HISTORY: fall, pain, r/o fracture left arm pain from shoulder to wrist TECHNIQUE: Multidetector row helical CT of the left shoulder, humerus, elbow, and forearm was perform ed without intravenous contrast. Coronal and sagittal reformations were obtained. Automated dose lowe ring techniques and/or adjustment according to patient size were utilized for this examination. Comparison: Comparison is made to humerus radiographs 06/28/2021 FINDINGS: The osseous structures are without fracture or dislocation. No joint effusion is seen. The joint spa alvin are maintained. The soft tissues are unremarkable. IMPRESSION: No evidence of acute fracture or dislocation. ACT 112: Negative or not required by law. Electronically signed by: Armand Tobar M.D. 07/30/2021 11:37 AM
[2021-07-30] MEDS ORDERED: ACETAMINOPHEN 1,000 MG/100 ML VIAL IV STA (11:50)
[2021-07-30] MEDS: ATORVASTATIN 40 MG TAB PO SCH (14:56)
--- NOTE | 2021-07-30 17:52 | Hospitalist Progress Note ---
Date of Service July 30, 2021 Assessment & Plan (1) Syncope: Plan: Status post fall Recurrent syncope Occurred yesterday while patient was at the commode No prodrome Patient and his significant other reports similar episodes at home Patient significant other reports possible seizure-like presentation when it happens No confusion after episodes Repeat CT head: No acute intracerebral pathology. Compared to the previous examination, there is now a small to moderate-sized subgaleal hematoma anterior to the forehead. There is again evidence for sinusitis. Check orthostatic vital signs EKG, troponin, echocardiogram Check EEG Initially discussed with [facility] neurologist Dr. Schwartz Per Dr. Schwartz, subgaleal hematoma does not require any surgical intervention Continue to monitor Hold off Coumadin for now check INR daily [facility]rologist [facility] consulted per patient's request as he follows with Dr. Cisneros (2) Acute on chronic diastolic heart failure: Plan: Presented with about 20 pounds weight gain in a few days with associated shortness of breath and increasing leg swelling Noted to have chest x-ray evidence of CHF Patient given IV Lasix with good response Currently remains on Lasix 40 mg twice daily and spironolactone 25 milligrams daily. Patient appears to be on the dry side today, with creatinine is 1.4 Hold diuretics, potassium supplement Monitor volume status closely Monitor renal function daily (3) Chronic pain disorder: Plan: Patient reporting left upper extremity pain after the fall IV morphine ordered 1 dose for CAT scan per patient's request IV Tylenol ordered 1 dose Continue Subutex and tramadol Otherwise chronic pain is well controlled (4) COPD exacerbation: Plan: Chronic respiratory failure with hypoxia--uses 4 L at bedtime and intermittently H/O COPD and felt to have a possible mild exacerbation on admission. Stable (5) Urinary tract infection associated with catheterization of urinary tract: Plan: H/O Indwelling Lloyd catheter with recurrent urinary tract infection, POA. Likely secondary to chronic Lloyd catheter Urine culture Enterococcus faecalis, nonfermenter species completed antibiotic course this admission (6) DM type 2 (diabetes mellitus, type 2): Plan: Controlled as inpatient, cont current insulin regimen. (7) Anticoagulated on Coumadin: Plan: H/O PE and DVT INR 3.0 Hold Coumadin for now in light of head injury, subgaleal hematoma Check INR daily (8) HTN (hypertension): Plan: controlled, cont current therapy. (9) Hematochezia: Plan: Bright red blood per rectum reported earlier in admisison, which has now resolved. H/H has remained stable. Follow-up with GI as an outpatient (10) Morbid obesity: Plan: Continued to recommend Weight loss. (11) Right knee pain: Plan: Per previous attending note: Complaint right knee pain following a pop earlier this admission. Xray revealed no acute fracture. There is no clear abnormality on exam and patient is not reporting pain and is reporting that he can ambulate well around the room. No further investigation. Generalized knee pain now being reported as "compensation from avoiding pain in other joints" --one dose Toradol given above. Would not consistently use NSAIDs in setting of coumadin use to avoid bleeding risk. (12) DVT prophylaxis: Plan: Hold Coumadin Dispo-awaiting transfer to [facility] or [facility] Admission and Anticipated Discharge Date Admission Date: July 05, 2021 Subjective Follow-up for CHF, COPD, status post fall, etc. Seen resting in bed with patient's RN area at the bedside throughout whole encounter Has right forehead pain, about the same as yesterday, no increasing headache today No change with vision, dizziness, nausea vomiting, focal neurologic symptoms Reports persistent pain in the left upper extremity, especially with movement Explained need for repeat CT head, CT of the left upper extremity, and patient was agreeable Requested for IV morphine to be able to tolerate position at CT scan Also requesting for his significant other to come and be at his bedside I did tell the patient that would be fine and also so we can discuss regarding plan of care Patient reevaluated around noon time Patient's RN Milka, charge nurse Meredith, rn field case manager Alma, infection control committee director Bisi present at the bedside Patient and his significant other had questions regarding care alert plan Discussed necessity to implement care alert plan for his safety while admitted As they are not satisfied with healthcare being provided here, patient and his significant other requesting to be transferred to [facility], or [facility] Also infection control committee director Bisi Asif discussed apparent medication error with insulin NovoLog which happened last week Patient and his significant other was very upset, and adamant on being transferred to above facilities as soon as possible Reevaluated after patient service excellence spoke with patient RN Milka present at the bedside Patient is now calm, smiling Updated on acceptance to [facility] but will wait for a bed to be available, awaiting confirmation regarding transfer to [facility] plan of care discussed with patient in detail and at length all questions answered he is understanding, agreeable, comfortable with the plan of care Patient thankful for care No other new symptoms or concerns Review of Systems Review of Systems: all noted and negative except for above Physical Exam Physical Exam: General- oriented x 3, not in distress, speaks in sentences with no effort or accessory muscle use Head- positive small hematoma on the right forehead Eyes- PERRL, EOMI, anicteric ENT- oropharynx clear Neck- supple, no JVD, no adenopathy, no thyromegaly; carotids +2/2, no bruits appreciated Lungs- clear to auscultation bilaterally, no rales/wheezes Heart- normal rate, regular rhythm; no murmur, no gallop, no rub appreciated Abdomen- normal bowel sounds, nondistended, soft, nontender, no masses or hepa tosplenomegaly Lloyd catheter in place, draining yellow urine Extremities- no pretibial edema, no calf tenderness; peripheral pulses intact Left upper extremity: No edema/erythema/hematoma/tenderness Full range of motion although with some pain Neuro- alert, oriented x 3; CN 2-12 grossly intact; motor 5/5 bilaterally;sensation 100% on all extremities; no other gross focal neurologic deficits Skin- warm & dry Results & Data Results & Data ([facility]) Vital Signs (Past 12 Hours) Vital Signs Temp Pulse Pulse Resp BP Pulse Ox 07/30/21 16:00 37 C 68 18 133/63 97 07/30/21 14:55 36.9 C 71 20 107/66 92 07/30/21 07:09 36.9 C 66 16 108/65 92 all noted and reviewed including below (1) Urinary tract infection associated with catheterization of urinary tract Encounter type: initial encounter Indwelling urinary catheter type: indwelling urethral catheter Qualified Code(s): T83.511A - Infection and inflammatory reaction due to indwelling urethral catheter, initial encounter; N39.0 - Urinary tract infection, site not specified (2) HTN (hypertension) Hypertension type: essential hypertension Qualified Code(s): I10 - Essential (primary) hypertension
[2021-07-30] MEDS: INSULIN GLARGINE SOLOSTAR 100 UNITS/ML 3 ML PEN SC SCH (21:17)
[2021-07-30] MEDS: MELATONIN 3 MG TAB PO PRN (22:35)
[2021-07-30] MEDS ORDERED: ACETAMINOPHEN 1000 MG/100 ML IV IV STA (22:49)
[2021-07-31] MEDS: traMADol HCL 50 MG TABLET PO PRN ×4 (03:21→21:05)
[2021-07-31 05:54] LABS: Basophils # (auto) 0.03 K/uL (0-0.2); Basophils % (auto) 0.3 %; Eosinophils % (auto) 7.1 %; Hematocrit (blood only) 38.4 % (42-52); Hemoglobin 12.2 g/dL (14.0-18.0); Immature Granulocytes # (auto) 0.02 K/uL (0.00-0.02); Immature Granulocytes % (auto) 0.2 %; Lymphocytes % (auto) 30.6 %; Mean Corpuscular Hemoglobin 26.3 pg (25-34); Mean Corpuscular Hgb Conc 31.8 g/dL (32-36); Mean Corpuscular Volume 82.8 fL (80-100); Monocytes # (auto) 0.73 K/uL (0.11-0.59); Monocytes % (auto) 7.4 %; Neutrophils # (auto) 5.33 K/uL (1.4-6.5); Neutrophils % (auto) 54.4 %; Platelet Count 230 K/uL (130-400); RDW Coefficient of Variation 17.6 % (11.5-14.5); RDW Standard Deviation 53.5 fL (36.4-46.3); Red Blood Count 4.64 M/uL (4.7-6.1); White Blood Count 9.81 K/uL (4.8-10.8)
[2021-07-31 06:03] LABS: INR 2.8 (0.9-1.1)
[2021-07-31] MEDS: PANTOprazole 40 MG TAB PO SCH (06:13)
[2021-07-31 06:24] LABS: Anion Gap 0 (3-11); BUN Creatinine Ratio 17.5 (10-20); Blood Urea Nitrogen 21 mg/dl (7-18); Carbon Dioxide 34 mmol/L (21-32); Chloride 103 mmol/L (98-107); Creatinine Clr Calc Pharmacy 135.4 ml/min; Est GFR (African American) 82.3 ml/min; Glucose 132 mg/dl (70-99); Potassium 4.1 mmol/L (3.5-5.1); Sodium 137 mmol/L (136-145)
[2021-07-31 06:28] LABS: Troponin I < 0.015 ng/ml (0-0.045)
[2021-07-31] MEDS: buprenorphine HCL 8 MG SUBL SL SCH ×3 (09:19→21:05)
[2021-07-31] MEDS: SENNA 8.6 MG TAB PO PRN (09:21)
[2021-07-31] MEDS: METOPROLOL SUCC 25MG EXT REL TAB PO SCH ×2 (09:22→21:13)
[2021-07-31] MEDS: ADVANCED PROBIOTIC 1250 MG CAPSULE PO SCH ×3 (09:22→21:11)
[2021-07-31] MEDS: FAMOTIDINE 20 MG TAB PO SCH (09:22)
[2021-07-31] MEDS: TAMSULOSIN HCL 0.4 MG CAP PO SCH (09:23)
[2021-07-31] MEDS: ISOSORBIDE MONO EXTENDED REL 30 MG TABCR PO SCH (09:23)
[2021-07-31] MEDS: DULoxetine HCL 60 MG CAP PO SCH (09:23)
[2021-07-31] MEDS: FOLIC ACID 1 MG TAB PO SCH (09:24)
[2021-07-31] MEDS: FLUTICASONE PROPIONATE NA SPR 16 GM BTL SCH (09:25)
[2021-07-31] MEDS: FINASTERIDE 5 MG TAB PO SCH (09:26)
[2021-07-31] MEDS: UMECLIDINIUM BROMIDE 62.5MCG/BLISTER 7 PUFFS/INHALER INH SCH (09:26)
[2021-07-31] MEDS: NICOTINE 21 MG/24 HR TDSY TD SCH (09:27)
[2021-07-31] MEDS: guaiFENesin 600 MG TABCR PO SCH ×2 (09:27→21:15)
[2021-07-31] MEDS: FLUTICASONE/VILANTEROL 100/25MCG 14 PUFFS/INHALER INH SCH (09:28)
[2021-07-31] MEDS: GABAPENTIN 800 MG TAB PO SCH ×3 (09:28→21:11)
[2021-07-31] MEDS: DOCUSATE SODIUM 100 MG CAP PO SCH ×2 (09:29→21:19)
[2021-07-31] MEDS: POLYETHYLENE (MIRALAX) 17 GM PACK PO SCH (09:29)
[2021-07-31] MEDS: NYSTATIN OINT 15 GM TUBE EXT SCH (09:30)
[2021-07-31] MEDS: INSULIN ASPART 100 UNITS/ML 3 ML PEN SC SCH ×5 (09:31→22:04)
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
[2021-07-31] MEDS: DOXYCYCLINE HYCLATE 100 MG CAP PO SCH ×2 (11:52→21:08)
[2021-07-31] MEDS: ATORVASTATIN 40 MG TAB PO SCH (11:53)
[2021-07-31] MEDS: ACETAMINOPHEN 1,000 MG/100 ML VIAL IV PRN ×2 (11:54→18:42)
--- NOTE | 2021-07-31 12:33 | Electroencephalogram ---
EEG Procedure Note Date of Service July 31, 2021 Start / End Times Start Time: 7:08 AM End Time: 7:28 AM Referring Physician Romulo Clark MD History Recurrent syncope, evaluate for seizure activity Home Medication List Medication Instructions Recorded Confirmed Type fluticasone propionate 50 2 spray INTRANASAL DAILY 06/01/18 07/05/21 History mcg/actuation nasal spray,suspension aspirin 81 mg tablet,delayed 81 mg PO QAM 11/17/18 07/05/21 History release (Ecotrin Low Strength) nitroglycerin 0.4 mg sublingual 0.4 mg SUBLINGUAL DIRECTED PRN 12/09/18 07/05/21 History tablet (Nitrostat) nystatin 100,000 unit/gram topical 1 applic TOPICAL TID PRN 12/09/18 07/05/21 History powder polyethylene glycol 3350 17 gram 17 g PO QAM 12/09/18 07/05/21 History oral powder packet (Miralax) tiotropium bromide 18 mcg capsule 1 puff INHALATION QAM 01/29/19 07/05/21 History with inhalation device (Spiriva with HandiHaler) finasteride 5 mg tablet 5 mg PO QAM 03/03/19 07/05/21 History tamsulosin 0.4 mg capsule (Flomax) 0.4 mg PO QAM 03/03/19 07/05/21 History cyclobenzaprine 10 mg tablet 10 mg PO BID PRN 03/10/19 07/05/21 History metoprolol succinate 50 mg 75 mg PO BID 08/01/19 07/05/21 History tablet,extended release 24 hr spironolactone 25 mg tablet 25 mg PO QAM 08/01/19 07/05/21 History docusate sodium 100 mg capsule 100 mg PO BID 08/11/19 07/05/21 History ipratropium 0.5 mg-albuterol 3 mg 3 ml INHALATION Q6H PRN 08/11/19 07/05/21 History (2.5 mg base)/3 mL nebulization soln atorvastatin 80 mg tablet 80 mg PO QPM 12/07/19 07/05/21 History folic acid 1 mg tablet 1 mg PO QAM 12/07/19 07/05/21 History furosemide 40 mg tablet (Lasix) 40 mg PO BID 12/07/19 07/05/21 History lorazepam 0.5 mg tablet 0.5 mg PO Q8 PRN 12/07/19 07/05/21 History sennosides 8.6 mg tablet (senna) 8.6 mg PO DAILY PRN 12/07/19 07/05/21 History albuterol sulfate 90 mcg/actuation 2 puff INHALATION Q4 PRN 02/17/20 07/05/21 History aerosol inhaler potassium chloride 20 mEq 20 meq PO BID 02/17/20 07/05/21 History tablet,extended release omeprazole 20 mg capsule,delayed 20 mg PO DAILYBB 04/14/20 07/05/21 History release gabapentin 800 mg tablet 800 mg PO TID 05/30/20 07/05/21 History duloxetine 60 mg capsule,delayed 60 mg PO DAILY 07/05/20 07/05/21 History release famotidine 20 mg tablet 20 mg PO DAILY 07/05/20 07/05/21 History methenamine hippurate 1 gram tablet 1 g PO DAILY 07/05/20 07/05/21 History buprenorphine HCl 8 mg sublingual 8 mg SUBLINGUAL TID 10/31/20 07/05/21 History tablet warfarin 5 mg tablet 2.5 mg PO DIRECTED 10/31/20 07/05/21 History isosorbide mononitrate 30 mg 30 mg PO DAILY 11/01/20 07/05/21 History tablet,extended release 24 hr ondansetron HCl 4 mg tablet 4 mg PO Q8 PRN #30 tab 12/03/20 07/05/21 Rx (Zofran) glipizide 10 mg tablet 10 mg PO BID 01/12/21 07/05/21 History insulin glargine 100 unit/mL (3 50 unit SC HS 30 Days #15 ml 01/15/21 07/05/21 Rx mL) subcutaneous pen (Lantus Solostar U-100 Insulin) fluticasone furoate 100 1 ea INHALATION DAILY #28 ea 01/17/21 07/05/21 Rx mcg-vilanterol 25 mcg/dose inhalation powder (Breo Ellipta) insulin admin supplies #1 ea 01/17/21 06/09/21 Rx Lactobacillus acidoph-L.bulgaricus 1 tab PO TID #30 tab 05/09/21 07/05/21 Rx 1 million cell chewable tablet (Lactinex) nicotine 21 mg/24 hr daily 1 patch TRANSDERMAL DAILY #28 ea 05/09/21 07/05/21 Rx transdermal patch ergocalciferol (vitamin D2) 1,250 1,250 mcg PO WK 07/05/21 07/05/21 History mcg (50,000 unit) capsule tramadol 50 mg tablet 50 mg PO Q6 PRN 07/05/21 07/05/21 History Inpatient Medication List Albuterol (Albuterol Hfa 8 Gm Inhaler) 2 puffs INH Q4 PRN PRN Reason: Dyspnea Stop: 08/04/21 06:04 Last Admin: 07/15/21 19:32 Dose: 2 puffs Documented by: [id number] Aspirin (Aspirin 81 Mg Ectab) 81 mg PO QAM [facility] Stop: 08/04/21 08:59 Last Admin: 07/30/21 09:10 Dose: 81 mg Documented by: [id number] Admin: 07/29/21 08:45 Dose: 81 mg Documented by: [id number] Admin: 07/28/21 08:50 Dose: 81 mg Documented by: [id number] Admin: 07/27/21 09:20 Dose: 81 mg Documented by: [id number] Admin: 07/26/21 08:59 Dose: 81 mg Documented by: [id number] Admin: 07/25/21 09:17 Dose: 81 mg Documented by: [id number] Admin: 07/24/21 09:06 Dose: 81 mg Documented by: [id number] Admin: 07/23/21 08:42 Dose: 81 mg Documented by: [id number] Admin: 07/22/21 09:45 Dose: 81 mg Documented by: [id number] Admin: 07/21/21 09:08 Dose: 81 mg Documented by: [id number] Admin: 07/20/21 09:57 Dose: 81 mg Documented by: [id number] Admin: 07/19/21 09:08 Dose: 81 mg Documented by: [id number] Admin: 07/18/21 09:30 Dose: 81 mg Documented by: [id number] Admin: 07/17/21 09:14 Dose: 81 mg Documented by: [id number] Admin: 07/16/21 08:11 Dose: 81 mg Documented by: [id number] Admin: 07/15/21 08:52 Dose: 81 mg Documented by: [id number] Admin: 07/14/21 08:47 Dose: 81 mg Documented by: [id number] Admin: 07/13/21 08:58 Dose: 81 mg Documented by: [id number] Admin: 07/12/21 08:30 Dose: 81 mg Documented by: [id number] Admin: 07/11/21 08:59 Dose: 81 mg Documented by: [id number] Admin: 07/10/21 08:42 Dose: 81 mg Documented by: [id number] Admin: 07/09/21 08:37 Dose: 81 mg Documented by: [id number] Admin: 07/08/21 08:45 Dose: 81 mg Documented by: [id number] Admin: 07/07/21 08:45 Dose: 81 mg Documented by: [id number] Admin: 07/06/21 08:53 Dose: 81 mg Documented by: [id number] Admin: 07/05/21 08:13 Dose: 81 mg Documented by: [id number] Atorvastatin Calcium (Atorvastatin 40 Mg Tab) 80 mg PO QDL EMPERATRIZ Stop: 08/04/21 11:29 Last Admin: 07/31/21 11:53 Dose: 80 mg Documented by: [id number] Admin: 07/30/21 14:56 Dose: 80 mg Documented by: [id number] Admin: 07/29/21 12:41 Dose: 80 mg Documented by: [id number] Admin: 07/28/21 11:31 Dose: 80 mg Documented by: [id number] Admin: 07/27/21 12:48 Dose: 80 mg Documented by: [id number] Admin: 07/26/21 12:51 Dose: 80 mg Documented by: [id number] Admin: 07/25/21 12:49 Dose: 80 mg Documented by: [id number] Admin: 07/24/21 13:01 Dose: 80 mg Documented by: [id number] Admin: 07/23/21 13:25 Dose: 80 mg Documented by: [id number] Admin: 07/22/21 12:14 Dose: 80 mg Documented by: [id number] Admin: 07/21/21 12:20 Dose: 80 mg Documented by: [id number] Admin: 07/20/21 12:24 Dose: 80 mg Documented by: [id number] Admin: 07/19/21 13:18 Dose: 80 mg Documented by: [id number] Admin: 07/18/21 12:22 Dose: 80 mg Documented by: [id number] Admin: 07/17/21 12:29 Dose: 80 mg Documented by: [id number] Admin: 07/16/21 13:07 Dose: 80 mg Documented by: [id number] Admin: 07/15/21 12:40 Dose: 80 mg Documented by: [id number] Admin: 07/14/21 12:11 Dose: 80 mg Documented by: [id number] Admin: 07/13/21 12:31 Dose: 80 mg Documented by: [id number] Admin: 07/12/21 11:15 Dose: 80 mg Documented by: [id number] Admin: 07/11/21 12:15 Dose: 80 mg Documented by: [id number] Admin: 07/10/21 11:26 Dose: 80 mg Documented by: [id number] Admin: 07/09/21 12:03 Dose: 80 mg Documented by: [id number] Admin: 07/08/21 11:42 Dose: 80 mg Documented by: [id number] Admin: 07/07/21 12:05 Dose: 80 mg Documented by: [id number] Admin: 07/06/21 08:51 Dose: 80 mg Documented by: [id number] Admin: 07/05/21 11:57 Dose: 80 mg Documented by: [id number] Buprenorphine HCl (Buprenorphine Hcl 8 Mg Subl) 8 mg SL TID EMPERATRIZ Stop: 08/04/21 08:59 Last Admin: 07/31/21 09:19 Dose: 8 mg Documented by: [id number] Admin: 07/30/21 21:09 Dose: 8 mg Documented by: [id number] Admin: 07/30/21 14:55 Dose: 8 mg Documented by: [id number] Admin: 07/30/21 09:09 Dose: 8 mg Documented by: [id number] Admin: 07/29/21 20:53 Dose: 8 mg Documented by: [id number] Admin: 07/29/21 16:17 Dose: 8 mg Documented by: [id number] Admin: 07/29/21 08:48 Dose: 8 mg Documented by: [id number] Admin: 07/28/21 21:21 Dose: 8 mg Documented by: [id number] Admin: 07/28/21 13:57 Dose: 8 mg Documented by: [id number] Admin: 07/28/21 08:49 Dose: 8 mg Documented by: [id number] Admin: 07/27/21 21:52 Dose: 8 mg Documented by: [id number] Admin: 07/27/21 14:12 Dose: 8 mg Documented by: [id number] Admin: 07/27/21 09:15 Dose: 8 mg Documented by: [id number] Admin: 07/26/21 21:09 Dose: 8 mg Documented by: [id number] Admin: 07/26/21 14:21 Dose: 8 mg Documented by: [id number] Admin: 07/26/21 08:53 Dose: 8 mg Documented by: [id number] Admin: 07/25/21 21:30 Dose: 8 mg Documented by: [id number] Admin: 07/25/21 13:14 Dose: 8 mg Documented by: [id number] Admin: 07/25/21 09:42 Dose: 8 mg Documented by: [id number] Admin: 07/24/21 21:25 Dose: 8 mg Documented by: [id number] Admin: 07/24/21 13:59 Dose: 8 mg Documented by: [id number] Admin: 07/24/21 09:03 Dose: 8 mg Documented by: [id number] Admin: 07/23/21 21:37 Dose: 8 mg Documented by: [id number] Admin: 07/23/21 14:03 Dose: 8 mg Documented by: [id number] Admin: 07/23/21 08:59 Dose: 8 mg Documented by: [id number] Admin: 07/22/21 21:41 Dose: 8 mg Documented by: [id number] Admin: 07/22/21 14:45 Dose: 8 mg Documented by: [id number] Admin: 07/22/21 09:44 Dose: 8 mg Documented by: [id number] Admin: 07/21/21 21:39 Dose: 8 mg Documented by: [id number] Admin: 07/21/21 12:19 Dose: 8 mg Documented by: [id number] Admin: 07/21/21 09:08 Dose: 8 mg Documented by: [id number] Admin: 07/20/21 20:49 Dose: 8 mg Documented by: [id number] Admin: 07/20/21 13:33 Dose: 8 mg Documented by: [id number] Admin: 07/20/21 10:19 Dose: 8 mg Documented by: [id number] Admin: 07/19/21 21:12 Dose: 8 mg Documented by: [id number] Admin: 07/19/21 13:27 Dose: 8 mg Documented by: [id number] Admin: 07/19/21 09:12 Dose: 8 mg Documented by: [id number] Admin: 07/18/21 21:11 Dose: 8 mg Documented by: [id number] Admin: 07/18/21 15:08 Dose: 8 mg Documented by: [id number] Admin: 07/18/21 09:42 Dose: 8 mg Documented by: [id number] Admin: 07/17/21 20:32 Dose: 8 mg Documented by: [id number] Admin: 07/17/21 15:02 Dose: 8 mg Documented by: [id number] Admin: 07/17/21 09:31 Dose: 8 mg Documented by: [id number] Admin: 07/16/21 20:39 Dose: 8 mg Documented by: [id number] Admin: 07/16/21 13:07 Dose: 8 mg Documented by: [id number] Admin: 07/16/21 08:09 Dose: 8 mg Documented by: [id number] Admin: 07/15/21 22:43 Dose: 8 mg Documented by: [id number] Admin: 07/15/21 13:45 Dose: 8 mg Documented by: [id number] Admin: 07/15/21 09:15 Dose: 8 mg Documented by: [id number] Admin: 07/14/21 21:09 Dose: 8 mg Documented by: [id number] Admin: 07/14/21 14:16 Dose: 8 mg Documented by: [id number] Admin: 07/14/21 09:23 Dose: 8 mg Documented by: [id number] Admin: 07/13/21 20:21 Dose: 8 mg Documented by: [id number] Admin: 07/13/21 14:11 Dose: 8 mg Documented by: [id number] Admin: 07/13/21 09:13 Dose: 8 mg Documented by: [id number] Admin: 07/12/21 21:05 Dose: 8 mg Documented by: [id number] Admin: 07/12/21 14:21 Dose: 8 mg Documented by: [id number] Admin: 07/12/21 08:28 Dose: 8 mg Documented by: [id number] Admin: 07/11/21 21:04 Dose: 8 mg Documented by: [id number] Admin: 07/11/21 14:34 Dose: 8 mg Documented by: [id number] Admin: 07/11/21 08:45 Dose: 8 mg Documented by: [id number] Admin: 07/10/21 20:01 Dose: 8 mg Documented by: [id number] Admin: 07/10/21 14:07 Dose: 8 mg Documented by: [id number] Admin: 07/10/21 08:39 Dose: 8 mg Documented by: [id number] Admin: 07/09/21 20:06 Dose: 8 mg Documented by: [id number] Admin: 07/09/21 14:57 Dose: 8 mg Documented by: [id number] Admin: 07/09/21 08:34 Dose: 8 mg Documented by: [id number] Admin: 07/08/21 21:41 Dose: 8 mg Documented by: [id number] Admin: 07/08/21 14:13 Dose: 8 mg Documented by: [id number] Admin: 07/08/21 08:41 Dose: 8 mg Documented by: [id number] Admin: 07/07/21 21:38 Dose: 8 mg Documented by: [id number] Admin: 07/07/21 14:27 Dose: 8 mg Documented by: [id number] Admin: 07/07/21 08:54 Dose: 8 mg Documented by: [id number] Admin: 07/06/21 21:44 Dose: 8 mg Documented by: [id number] Admin: 07/06/21 09:20 Dose: 8 mg Documented by: [id number] Admin: 07/06/21 09:03 Dose: 8 mg Documented by: [id number] Admin: 07/05/21 20:20 Dose: 8 mg Documented by: [id number] Admin: 07/05/21 13:30 Dose: 8 mg Documented by: [id number] Admin: 07/05/21 08:22 Dose: 8 mg Documented by: [id number] Cyclobenzaprine HCl (Cyclobenzaprine Hcl 10 Mg Tab) 10 mg PO BID PRN PRN Reason: Muscle Spasm Stop: 08/04/21 06:04 Last Admin: 07/06/21 09:02 Dose: 10 mg Documented by: [id number] Admin: 07/05/21 20:25 Dose: 10 mg Documented by: [id number] Diclofenac Sodium (Diclofenac Sod 1% Gel 100 Gm Tube) 2 gm EXT QID PRN PRN Reason: knee pain Stop: 08/12/21 08:59 Last Admin: 07/28/21 20:42 Dose: 2 gm Documented by: [id number] Admin: 07/17/21 21:09 Dose: 2 gm Documented by: [id number] Admin: 07/16/21 20:47 Dose: 2 gm Documented by: [id number] Admin: 07/15/21 16:02 Dose: 2 gm Documented by: [id number] Admin: 07/13/21 15:00 Dose: 2 gm Documented by: [id number] Docusate Sodium (Docusate Sodium 100 Mg Cap) 100 mg PO BID EMPERATRIZ Stop: 08/04/21 08:59 Last Admin: 07/31/21 09:29 Dose: Not Given Documented by: [id number] Admin: 07/30/21 21:29 Dose: Not Given Documented by: [id number] Admin: 07/30/21 09:45 Dose: Not Given Documented by: [id number] Admin: 07/29/21 20:55 Dose: 100 mg Documented by: [id number] Admin: 07/29/21 08:45 Dose: 100 mg Documented by: [id number] Admin: 07/28/21 21:21 Dose: 100 mg Documented by: [id number] Admin: 07/28/21 09:03 Dose: 100 mg Documented by: [id number] Admin: 07/27/21 21:52 Dose: 100 mg Documented by: [id number] Admin: 07/27/21 09:15 Dose: 100 mg Documented by: [id number] Admin: 07/26/21 21:10 Dose: 100 mg Documented by: [id number] Admin: 07/26/21 08:55 Dose: 100 mg Documented by: [id number] Admin: 07/25/21 21:31 Dose: 100 mg Documented by: [id number] Admin: 07/25/21 09:16 Dose: 100 mg Documented by: [id number] Admin: 07/24/21 21:38 Dose: 100 mg Documented by: [id number] Admin: 07/24/21 09:12 Dose: 100 mg Documented by: [id number] Admin: 07/23/21 21:36 Dose: Not Given Documented by: [id number] Admin: 07/23/21 08:52 Dose: 100 mg Documented by: [id number] Admin: 07/22/21 21:42 Dose: Not Given Documented by: [id number] Admin: 07/22/21 09:44 Dose: 100 mg Documented by: [id number] Admin: 07/21/21 21:38 Dose: 100 mg Documented by: [id number] Admin: 07/21/21 09:08 Dose: 100 mg Documented by: [id number] Admin: 07/20/21 20:49 Dose: 100 mg Documented by: [id number] Admin: 07/20/21 10:17 Dose: 100 mg Documented by: [id number] Admin: 07/19/21 21:17 Dose: Not Given Documented by: [id number] Admin: 07/19/21 09:07 Dose: 100 mg Documented by: [id number] Admin: 07/18/21 21:35 Dose: 100 mg Documented by: [id number] Admin: 07/18/21 09:28 Dose: Not Given Documented by: [id number] Admin: 07/17/21 20:38 Dose: 100 mg Documented by: [id number] Admin: 07/17/21 09:31 Dose: 100 mg Documented by: [id number] Admin: 07/16/21 20:24 Dose: 100 mg Documented by: [id number] Admin: 07/16/21 08:09 Dose: 100 mg Documented by: [id number] Admin: 07/15/21 22:43 Dose: 100 mg Documented by: [id number] Admin: 07/15/21 09:11 Dose: 100 mg Documented by: [id number] Admin: 07/14/21 21:13 Dose: 100 mg Documented by: [id number] Admin: 07/14/21 09:08 Dose: 100 mg Documented by: [id number] Admin: 07/13/21 20:21 Dose: 100 mg Documented by: [id number] Admin: 07/13/21 09:13 Dose: 100 mg Documented by: [id number] Admin: 07/12/21 21:05 Dose: 100 mg Documented by: [id number] Admin: 07/12/21 08:41 Dose: 100 mg Documented by: [id number] Admin: 07/11/21 21:04 Dose: 100 mg Documented by: [id number] Admin: 07/11/21 10:00 Dose: 100 mg Documented by: [id number] Admin: 07/10/21 20:12 Dose: 100 mg Documented by: [id number] Admin: 07/10/21 08:39 Dose: 100 mg Documented by: [id number] Admin: 07/09/21 20:20 Dose: 100 mg Documented by: [id number] Admin: 07/09/21 08:35 Dose: 100 mg Documented by: [id number] Admin: 07/08/21 21:41 Dose: 100 mg Documented by: [id number] Admin: 07/08/21 09:00 Dose: 100 mg Documented by: [id number] Admin: 07/07/21 21:38 Dose: 100 mg Documented by: [id number] Admin: 07/07/21 08:54 Dose: 100 mg Documented by: [id number] Admin: 07/06/21 21:44 Dose: 100 mg Documented by: [id number] Admin: 07/06/21 08:50 Dose: 100 mg Documented by: [id number] Admin: 07/05/21 20:27 Dose: 100 mg Documented by: [id number] Admin: 07/05/21 08:14 Dose: 100 mg Documented by: [id number] Doxycycline Hyclate (Doxycycline Hyclate 100 Mg Cap) 100 mg PO BID EMPERATRIZ Stop: 08/07/21 11:14 Last Admin: 07/31/21 11:52 Dose: 100 mg Documented by: [id number] Duloxetine HCl (Duloxetine Hcl 60 Mg Cap) 60 mg PO DAILY EMPERATRIZ Stop: 08/04/21 08:59 Last Admin: 07/31/21 09:23 Dose: 60 mg Documented by: [id number] Admin: 07/30/21 09:09 Dose: 60 mg Documented by: [id number] Admin: 07/29/21 08:45 Dose: 60 mg Documented by: [id number] Admin: 07/28/21 08:51 Dose: 60 mg Documented by: [id number] Admin: 07/27/21 09:20 Dose: 60 mg Documented by: [id number] Admin: 07/26/21 09:01 Dose: 60 mg Documented by: [id number] Admin: 07/25/21 09:17 Dose: 60 mg Documented by: [id number] Admin: 07/24/21 09:05 Dose: 60 mg Documented by: [id number] Admin: 07/23/21 08:42 Dose: 60 mg Documented by: [id number] Admin: 07/22/21 09:45 Dose: 60 mg Documented by: [id number] Admin: 07/21/21 09:08 Dose: 60 mg Documented by: [id number] Admin: 07/20/21 09:58 Dose: 60 mg Documented by: [id number] Admin: 07/19/21 09:08 Dose: 60 mg Documented by: [id number] Admin: 07/18/21 09:31 Dose: 60 mg Documented by: [id number] Admin: 07/17/21 09:14 Dose: 60 mg Documented by: [id number] Admin: 07/16/21 08:10 Dose: 60 mg Documented by: [id number] Admin: 07/15/21 08:53 Dose: 60 mg Documented by: [id number] Admin: 07/14/21 08:45 Dose: 60 mg Documented by: [id number] Admin: 07/13/21 08:58 Dose: 60 mg Documented by: [id number] Admin: 07/12/21 08:30 Dose: 60 mg Documented by: [id number] Admin: 07/11/21 09:06 Dose: 60 mg Documented by: [id number] Admin: 07/10/21 08:39 Dose: 60 mg Documented by: [id number] Admin: 07/09/21 08:36 Dose: 60 mg Documented by: [id number] Admin: 07/08/21 08:43 Dose: 60 mg Documented by: [id number] Admin: 07/07/21 08:44 Dose: 60 mg Documented by: [id number] Admin: 07/06/21 08:52 Dose: 60 mg Documented by: [id number] Admin: 07/05/21 08:14 Dose: 60 mg Documented by: [id number] Ergocalciferol (Ergocalciferol 50,000 Units 1250 Mcg Cap) 50,000 units PO Fr@0900 EMPERATRIZ Stop: 08/10/21 08:59 Last Admin: 07/25/21 09:17 Dose: 50,000 units Documented by: [id number] Admin: 07/18/21 09:31 Dose: 50,000 units Documented by: [id number] Admin: 07/11/21 09:01 Dose: 50,000 units Documented by: [id number] Famotidine (Famotidine 20 Mg Tab) 20 mg PO DAILY EMPERATRIZ Stop: 08/04/21 08:59 Last Admin: 07/31/21 09:22 Dose: 20 mg Documented by: [id number] Admin: 07/30/21 09:10 Dose: 20 mg Documented by: [id number] Admin: 07/29/21 08:46 Dose: 20 mg Documented by: [id number] Admin: 07/28/21 08:50 Dose: 20 mg Documented by: [id number] Admin: 07/27/21 09:20 Dose: 20 mg Documented by: [id number] Admin: 07/26/21 09:01 Dose: 20 mg Documented by: [id number] Admin: 07/25/21 09:17 Dose: 20 mg Documented by: [id number] Admin: 07/24/21 09:05 Dose: 20 mg Documented by: [id number] Admin: 07/23/21 10:09 Dose: 20 mg Documented by: [id number] Admin: 07/22/21 09:54 Dose: 20 mg Documented by: [id number] Admin: 07/21/21 09:09 Dose: 20 mg Documented by: [id number] Admin: 07/20/21 10:17 Dose: 20 mg Documented by: [id number] Admin: 07/19/21 09:07 Dose: 20 mg Documented by: [id number] Admin: 07/18/21 10:10 Dose: 20 mg Documented by: [id number] Admin: 07/17/21 09:31 Dose: 20 mg Documented by: [id number] Admin: 07/16/21 08:12 Dose: 20 mg Documented by: [id number] Admin: 07/15/21 08:54 Dose: 20 mg Documented by: [id number] Admin: 07/14/21 08:47 Dose: 20 mg Documented by: [id number] Admin: 07/13/21 08:58 Dose: 20 mg Documented by: [id number] Admin: 07/12/21 08:31 Dose: 20 mg Documented by: [id number] Admin: 07/11/21 08:46 Dose: 20 mg Documented by: [id number] Admin: 07/10/21 08:41 Dose: 20 mg Documented by: [id number] Admin: 07/09/21 08:38 Dose: 20 mg Documented by: [id number] Admin: 07/08/21 08:44 Dose: 20 mg Documented by: [id number] Admin: 07/07/21 08:44 Dose: 20 mg Documented by: [id number] Admin: 07/06/21 08:52 Dose: 20 mg Documented by: [id number] Admin: 07/05/21 08:15 Dose: 20 mg Documented by: [id number] Finasteride (Finasteride 5 Mg Tab) [facility] [place] Stop: 08/04/21 08:59 Last Admin: 07/31/21 09:26 Dose: 5 mg Documented by: [id number] Admin: 07/30/21 09:10 Dose: 5 mg Documented by: [id number] Admin: 07/29/21 08:46 Dose: 5 mg Documented by: [id number] Admin: 07/28/21 08:50 Dose: 5 mg Documented by: [id number] Admin: 07/27/21 09:20 Dose: 5 mg Documented by: [id number] Admin: 07/26/21 08:59 Dose: 5 mg Documented by: [id number] Admin: 07/25/21 09:17 Dose: 5 mg Documented by: [id number] Admin: 07/24/21 09:05 Dose: 5 mg Documented by: [id number] Admin: 07/23/21 08:41 Dose: 5 mg Documented by: [id number] Admin: 07/22/21 09:45 Dose: 5 mg Documented by: [id number] Admin: 07/21/21 09:09 Dose: 5 mg Documented by: [id number] Admin: 07/20/21 09:58 Dose: 5 mg Documented by: [id number] Admin: 07/19/21 09:07 Dose: 5 mg Documented by: [id number] Admin: 07/18/21 09:31 Dose: 5 mg Documented by: [id number] Admin: 07/17/21 09:14 Dose: 5 mg Documented by: [id number] Admin: 07/16/21 08:09 Dose: 5 mg Documented by: [id number] Admin: 07/15/21 08:55 Dose: 5 mg Documented by: [id number] Admin: 07/14/21 08:44 Dose: 5 mg Documented by: [id number] Admin: 07/13/21 08:58 Dose: 5 mg Documented by: [id number] Admin: 07/12/21 08:31 Dose: 5 mg Documented by: [id number] Admin: 07/11/21 09:02 Dose: 5 mg Documented by: [id number] Admin: 07/10/21 08:39 Dose: 5 mg Documented by: [id number] Admin: 07/09/21 08:36 Dose: 5 mg Documented by: [id number] Admin: 07/08/21 08:42 Dose: 5 mg Documented by: [id number] Admin: 07/07/21 08:44 Dose: 5 mg Documented by: [id number] Admin: 07/06/21 08:51 Dose: 5 mg Documented by: [id number] Admin: 07/05/21 08:12 Dose: 5 mg Documented by: [id number] Fluticasone Propionate (Fluticasone Propionate Na Spr 16 Gm Btl) 2 sprays NA DAILY EMPERATRIZ Stop: 08/04/21 08:59 Last Admin: 07/31/21 09:25 Dose: 2 sprays Documented by: [id number] Admin: 07/30/21 09:11 Dose: 2 sprays Documented by: [id number] Admin: 07/29/21 08:48 Dose: 2 sprays Documented by: [id number] Admin: 07/28/21 08:53 Dose: 2 sprays Documented by: [id number] Admin: 07/27/21 09:16 Dose: 2 sprays Documented by: [id number] Admin: 07/26/21 08:58 Dose: 2 sprays Documented by: [id number] Admin: 07/25/21 09:18 Dose: 2 sprays Documented by: [id number] Admin: 07/24/21 09:08 Dose: 2 sprays Documented by: [id number] Admin: 07/23/21 08:44 Dose: 2 sprays Documented by: [id number] Admin: 07/22/21 09:55 Dose: 2 sprays Documented by: [id number] Admin: 07/21/21 09:03 Dose: 2 sprays Documented by: [id number] Admin: 07/20/21 09:52 Dose: 2 sprays Documented by: [id number] Admin: 07/19/21 10:38 Dose: 2 sprays Documented by: [id number] Admin: 07/18/21 09:32 Dose: 2 sprays Documented by: [id number] Admin: 07/17/21 09:17 Dose: 2 sprays Documented by: [id number] Admin: 07/16/21 08:11 Dose: 2 sprays Documented by: [id number] Admin: 07/15/21 08:55 Dose: 2 sprays Documented by: [id number] Admin: 07/14/21 08:50 Dose: 2 sprays Documented by: [id number] Admin: 07/13/21 09:01 Dose: 2 sprays Documented by: [id number] Admin: 07/12/21 08:33 Dose: 2 sprays Documented by: [id number] Admin: 07/11/21 08:50 Dose: 2 sprays Documented by: [id number] Admin: 07/10/21 08:41 Dose: 2 sprays Documented by: [id number] Admin: 07/09/21 08:43 Dose: 2 sprays Documented by: [id number] Admin: 07/08/21 08:52 Dose: 2 sprays Documented by: [id number] Admin: 07/07/21 08:46 Dose: 2 sprays Documented by: [id number] Admin: 07/06/21 08:57 Dose: 2 sprays Documented by: [id number] Admin: 07/05/21 08:18 Dose: 2 sprays Documented by: [id number] Fluticasone/Vilanterol (Fluticasone/Vilanterol 100/25mcg 14 Puffs/Inhaler) 1 puffs INH DAILY EMPERATRIZ Stop: 08/04/21 08:59 Last Admin: 07/31/21 09:28 Dose: 1 puffs Documented by: [id number] Admin: 07/30/21 09:11 Dose: 1 puffs Documented by: [id number] Admin: 07/29/21 08:47 Dose: 1 puffs Documented by: [id number] Admin: 07/28/21 08:53 Dose: 1 puffs Documented by: [id number] Admin: 07/27/21 09:20 Dose: 1 puffs Documented by: [id number] Admin: 07/26/21 08:56 Dose: 1 puffs Documented by: [id number] Admin: 07/25/21 09:19 Dose: 1 puffs Documented by: [id number] Admin: 07/24/21 09:07 Dose: 1 puffs Documented by: [id number] Admin: 07/23/21 08:45 Dose: 1 puffs Documented by: [id number] Admin: 07/22/21 09:55 Dose: 1 puffs Documented by: [id number] Admin: 07/21/21 09:03 Dose: 1 puffs Documented by: [id number] Admin: 07/20/21 09:52 Dose: 1 puffs Documented by: [id number] Admin: 07/19/21 10:37 Dose: 1 puffs Documented by: [id number] Admin: 07/18/21 09:31 Dose: 1 puffs Documented by: [id number] Admin: 07/17/21 09:17 Dose: 1 puffs Documented by: [id number] Admin: 07/16/21 08:12 Dose: 1 puffs Documented by: [id number] Admin: 07/15/21 08:56 Dose: 1 puffs Documented by: [id number] Admin: 07/14/21 08:50 Dose: 1 puffs Documented by: [id number] Admin: 07/13/21 09:01 Dose: 1 puffs Documented by: [id number] Admin: 07/12/21 08:32 Dose: 1 puffs Documented by: [id number] Admin: 07/11/21 09:03 Dose: 1 puffs Documented by: [id number] Admin: 07/10/21 08:42 Dose: 1 puffs Documented by: [id number] Admin: 07/09/21 08:42 Dose: 1 puffs Documented by: [id number] Admin: 07/08/21 08:51 Dose: 1 puffs Documented by: [id number] Admin: 07/07/21 08:47 Dose: 1 puffs Documented by: [id number] Admin: 07/06/21 08:57 Dose: 1 puffs Documented by: [id number] Admin: 07/05/21 08:18 Dose: 1 puffs Documented by: [id number] Folic Acid (Folic Acid 1 Mg Tab) 1 mg PO QAM [facility] Stop: 08/04/21 08:59 Last Admin: 07/31/21 09:24 Dose: 1 mg Documented by: [id number] Admin: 07/30/21 09:10 Dose: 1 mg Documented by: [id number] Admin: 07/29/21 08:46 Dose: 1 mg Documented by: [id number] Admin: 07/28/21 08:50 Dose: 1 mg Documented by: [id number] Admin: 07/27/21 09:20 Dose: 1 mg Documented by: [id number] Admin: 07/26/21 08:59 Dose: 1 mg Documented by: [id number] Admin: 07/25/21 09:17 Dose: 1 mg Documented by: [id number] Admin: 07/24/21 09:04 Dose: 1 mg Documented by: [id number] Admin: 07/23/21 08:41 Dose: 1 mg Documented by: [id number] Admin: 07/22/21 09:45 Dose: 1 mg Documented by: [id number] Admin: 07/21/21 09:09 Dose: 1 mg Documented by: [id number] Admin: 07/20/21 09:58 Dose: 1 mg Documented by: [id number] Admin: 07/19/21 09:07 Dose: 1 mg Documented by: [id number] Admin: 07/18/21 09:31 Dose: 1 mg Documented by: [id number] Admin: 07/17/21 09:14 Dose: 1 mg Documented by: [id number] Admin: 07/16/21 08:12 Dose: 1 mg Documented by: [id number] Admin: 07/15/21 08:56 Dose: 1 mg Documented by: [id number] Admin: 07/14/21 08:45 Dose: 1 mg Documented by: [id number] Admin: 07/13/21 08:58 Dose: 1 mg Documented by: [id number] Admin: 07/12/21 08:31 Dose: 1 mg Documented by: [id number] Admin: 07/11/21 08:50 Dose: 1 mg Documented by: [id number] Admin: 07/10/21 08:41 Dose: 1 mg Documented by: [id number] Admin: 07/09/21 08:37 Dose: 1 mg Documented by: [id number] Admin: 07/08/21 08:44 Dose: 1 mg Documented by: [id number] Admin: 07/07/21 08:43 Dose: 1 mg Documented by: [id number] Admin: 07/06/21 08:56 Dose: 1 mg Documented by: [id number] Admin: 07/05/21 08:15 Dose: 1 mg Documented by: [id number] Furosemide (Furosemide 40 Mg Tab) 40 mg PO BID17 EMPERATRIZ Stop: 08/25/21 16:59 Last Admin: 07/30/21 09:10 Dose: 40 mg Documented by: [id number] Admin: 07/29/21 17:55 Dose: 40 mg Documented by: [id number] Admin: 07/29/21 08:46 Dose: 40 mg Documented by: [id number] Admin: 07/28/21 18:07 Dose: 40 mg Documented by: [id number] Admin: 07/28/21 08:51 Dose: 40 mg Documented by: [id number] Admin: 07/27/21 17:58 Dose: 40 mg Documented by: [id number] Admin: 07/27/21 09:19 Dose: 40 mg Documented by: [id number] Admin: 07/26/21 16:43 Dose: 40 mg Documented by: [id number] Gabapentin (Gabapentin 800 Mg Tab) 800 mg PO TID EMPERATRIZ Stop: 08/04/21 08:59 Last Admin: 07/31/21 09:28 Dose: 800 mg Documented by: [id number] Admin: 07/30/21 21:04 Dose: 800 mg Documented by: [id number] Admin: 07/30/21 14:55 Dose: 800 mg Documented by: [id number] Admin: 07/30/21 09:10 Dose: 800 mg Documented by: [id number] Admin: 07/29/21 20:59 Dose: 800 mg Documented by: [id number] Admin: 07/29/21 16:19 Dose: 800 mg Documented by: [id number] Admin: 07/29/21 08:46 Dose: 800 mg Documented by: [id number] Admin: 07/28/21 20:44 Dose: 800 mg Documented by: [id number] Admin: 07/28/21 13:53 Dose: 800 mg Documented by: [id number] Admin: 07/28/21 08:51 Dose: 800 mg Documented by: [id number] Admin: 07/27/21 21:55 Dose: 800 mg Documented by: [id number] Admin: 07/27/21 14:12 Dose: 800 mg Documented by: [id number] Admin: 07/27/21 09:20 Dose: 800 mg Documented by: [id number] Admin: 07/26/21 21:10 Dose: 800 mg Documented by: [id number] Admin: 07/26/21 14:21 Dose: 800 mg Documented by: [id number] Admin: 07/26/21 09:01 Dose: 800 mg Documented by: [id number] Admin: 07/25/21 21:33 Dose: 800 mg Documented by: [id number] Admin: 07/25/21 13:00 Dose: 800 mg Documented by: [id number] Admin: 07/25/21 09:17 Dose: 800 mg Documented by: [id number] Admin: 07/24/21 21:26 Dose: 800 mg Documented by: [id number] Admin: 07/24/21 13:58 Dose: 800 mg Documented by: [id number] Admin: 07/24/21 09:05 Dose: 800 mg Documented by: [id number] Admin: 07/23/21 21:39 Dose: 800 mg Documented by: [id number] Admin: 07/23/21 13:27 Dose: 800 mg Documented by: [id number] Admin: 07/23/21 08:39 Dose: 800 mg Documented by: [id number] Admin: 07/22/21 21:44 Dose: 800 mg Documented by: [id number] Admin: 07/22/21 14:45 Dose: 800 mg Documented by: [id number] Admin: 07/22/21 09:45 Dose: 800 mg Documented by: [id number] Admin: 07/21/21 21:30 Dose: 800 mg Documented by: [id number] Admin: 07/21/21 13:03 Dose: 800 mg Documented by: [id number] Admin: 07/21/21 09:08 Dose: 800 mg Documented by: [id number] Admin: 07/20/21 20:36 Dose: 800 mg Documented by: [id number] Admin: 07/20/21 13:32 Dose: 800 mg Documented by: [id number] Admin: 07/20/21 09:58 Dose: 800 mg Documented by: [id number] Admin: 07/19/21 21:13 Dose: 800 mg Documented by: [id number] Admin: 07/19/21 13:26 Dose: 800 mg Documented by: [id number] Admin: 07/19/21 09:07 Dose: 800 mg Documented by: [id number] Admin: 07/18/21 21:12 Dose: 800 mg Documented by: [id number] Admin: 07/18/21 15:43 Dose: 800 mg Documented by: [id number] Admin: 07/18/21 09:31 Dose: 800 mg Documented by: [id number] Admin: 07/17/21 20:34 Dose: 800 mg Documented by: [id number] Admin: 07/17/21 15:02 Dose: 800 mg Documented by: [id number] Admin: 07/17/21 09:15 Dose: 800 mg Documented by: [id number] Admin: 07/16/21 20:25 Dose: 800 mg Documented by: [id number] Admin: 07/16/21 13:07 Dose: 800 mg Documented by: [id number] Admin: 07/16/21 08:11 Dose: 800 mg Documented by: [id number] Admin: 07/15/21 20:34 Dose: 800 mg Documented by: [id number] Admin: 07/15/21 13:27 Dose: 800 mg Documented by: [id number] Admin: 07/15/21 08:58 Dose: 800 mg Documented by: [id number] Admin: 07/14/21 21:13 Dose: 800 mg Documented by: [id number] Admin: 07/14/21 14:11 Dose: 800 mg Documented by: [id number] Admin: 07/14/21 08:42 Dose: 800 mg Documented by: [id number] Admin: 07/13/21 20:21 Dose: 800 mg Documented by: [id number] Admin: 07/13/21 14:11 Dose: 800 mg Documented by: [id number] Admin: 07/13/21 09:00 Dose: 800 mg Documented by: [id number] Admin: 07/12/21 21:05 Dose: 800 mg Documented by: [id number] Admin: 07/12/21 14:22 Dose: 800 mg Documented by: [id number] Admin: 07/12/21 08:30 Dose: 800 mg Documented by: [id number] Admin: 07/11/21 21:05 Dose: 800 mg Documented by: [id number] Admin: 07/11/21 14:33 Dose: 800 mg Documented by: [id number] Admin: 07/11/21 08:48 Dose: 800 mg Documented by: [id number] Admin: 07/10/21 20:02 Dose: 800 mg Documented by: [id number] Admin: 07/10/21 14:07 Dose: 800 mg Documented by: [id number] Admin: 07/10/21 08:40 Dose: 800 mg Documented by: [id number] Admin: 07/09/21 20:07 Dose: 800 mg Documented by: [id number] Admin: 07/09/21 14:57 Dose: 800 mg Documented by: [id number] Admin: 07/09/21 08:35 Dose: 800 mg Documented by: [id number] Admin: 07/08/21 21:42 Dose: 800 mg Documented by: [id number] Admin: 07/08/21 14:14 Dose: 800 mg Documented by: [id number] Admin: 07/08/21 08:44 Dose: 800 mg Documented by: [id number] Admin: 07/07/21 21:45 Dose: 800 mg Documented by: [id number] Admin: 07/07/21 14:27 Dose: 800 mg Documented by: [id number] Admin: 07/07/21 08:43 Dose: 800 mg Documented by: [id number] Admin: 07/06/21 21:39 Dose: 800 mg Documented by: [id number] Admin: 07/06/21 14:06 Dose: 800 mg Documented by: [id number] Admin: 07/06/21 08:53 Dose: 800 mg Documented by: [id number] Admin: 07/05/21 20:08 Dose: 800 mg Documented by: [id number] Admin: 07/05/21 13:30 Dose: 800 mg Documented by: [id number] Admin: 07/05/21 08:16 Dose: 800 mg Documented by: [id number] Guaifenesin (Guaifenesin 600 Mg Tabcr) 600 mg PO Q12 EMPERATRIZ Stop: 08/25/21 20:59 Last Admin: 07/31/21 09:27 Dose: 600 mg Documented by: [id number] Admin: 07/30/21 21:04 Dose: 600 mg Documented by: [id number] Admin: 07/30/21 09:10 Dose: 600 mg Documented by: [id number] Admin: 07/29/21 20:59 Dose: 600 mg Documented by: [id number] Admin: 07/29/21 08:46 Dose: 600 mg Documented by: [id number] Admin: 07/28/21 20:44 Dose: 600 mg Documented by: [id number] Admin: 07/28/21 08:51 Dose: 600 mg Documented by: [id number] Admin: 07/27/21 21:55 Dose: 600 mg Documented by: [id number] Admin: 07/27/21 09:19 Dose: 600 mg Documented by: [id number] Admin: 07/26/21 21:10 Dose: 600 mg Documented by: [id number] Acetaminophen (Ofirmev) 1,000 mg in 100 mls @ 400 mls/hr IV Q8H PRN PRN Reason: fever/pain Stop: 08/03/21 11:06 Last Admin: 07/31/21 11:54 Dose: 400 mls/hr Documented by: [id number] Insulin Aspart (Insulin Aspart 100 Units/Ml 3 Ml Pen) 0 units SC ACHS [facility] Stop: 08/04/21 07:29 Last Admin: 07/31/21 11:53 Dose: 10 units Documented by: [id number] Cosigned by: [id number] Admin: 07/31/21 09:31 Dose: 8 units Documented by: [id number] Cosigned by: [id number] Admin: 07/30/21 21:17 Dose: 6 units Documented by: [id number] Cosigned by: [id number] Admin: 07/30/21 17:40 Dose: 6 units Documented by: [id number] Cosigned by: [id number] Admin: 07/30/21 14:57 Dose: 7 units Documented by: [id number] Cosigned by: [id number] Admin: 07/30/21 09:12 Dose: 6 units Documented by: [id number] Cosigned by: [id number] Admin: 07/29/21 21:05 Dose: 8 units Documented by: [id number] Cosigned by: [id number] Admin: 07/29/21 17:55 Dose: 6 units Documented by: [id number] Cosigned by: [id number] Admin: 07/29/21 13:23 Dose: 5 units Documented by: [id number] Cosigned by: [id number] Admin: 07/29/21 08:52 Dose: 7 units Documented by: [id number] Cosigned by: [id number] Admin: 07/28/21 21:23 Dose: 6 units Documented by: [id number] Cosigned by: [id number] Admin: 07/28/21 18:11 Dose: 7 units Documented by: [id number] Cosigned by: [id number] Admin: 07/28/21 12:25 Dose: 8 units Documented by: [id number] Cosigned by: [id number] Admin: 07/28/21 08:56 Dose: 7 units Documented by: [id number] Cosigned by: [id number] Admin: 07/27/21 21:56 Dose: 7 units Documented by: [id number] Cosigned by: [id number] Admin: 07/27/21 18:01 Dose: 7 units Documented by: [id number] Cosigned by: [id number] Admin: 07/27/21 12:50 Dose: 8 units Documented by: [id number] Cosigned by: [id number] Admin: 07/27/21 09:33 Dose: 9 units Documented by: [id number] Cosigned by: [id number] Admin: 07/26/21 21:15 Dose: 3 units Documented by: [id number] Cosigned by: [id number] Admin: 07/26/21 17:54 Dose: 6 units Documented by: [id number] Cosigned by: [id number] Admin: 07/26/21 12:54 Dose: 6 units Documented by: [id number] Cosigned by: [id number] Admin: 07/26/21 09:12 Dose: 9 units Documented by: [id number] Cosigned by: [id number] Admin: 07/25/21 22:50 Dose: 4 units Documented by: [id number] Cosigned by: [id number] Admin: 07/25/21 19:31 Dose: 5 units Documented by: [id number] Cosigned by: [id number] Admin: 07/25/21 17:49 Dose: 9 units Documented by: [id number] Cosigned by: [id number] Admin: 07/25/21 12:50 Dose: 9 units Documented by: [id number] Cosigned by: [id number] Admin: 07/25/21 09:54 Dose: 8 units Documented by: [id number] Cosigned by: [id number] Admin: 07/24/21 21:20 Dose: 6 units Documented by: [id number] Cosigned by: [id number] Admin: 07/24/21 17:43 Dose: 6 units Documented by: [id number] Cosigned by: [id number] Admin: 07/24/21 12:59 Dose: 8 units Documented by: [id number] Cosigned by: [id number] Admin: 07/24/21 09:08 Dose: 11 units Documented by: [id number] Cosigned by: [id number] Admin: 07/23/21 20:41 Dose: 5 units Documented by: [id number] Cosigned by: [id number] Admin: 07/23/21 18:15 Dose: 12 units Documented by: [id number] Cosigned by: [id number] Admin: 07/23/21 13:26 Dose: 9 units Documented by: [id number] Cosigned by: [id number] Admin: 07/23/21 08:43 Dose: 7 units Documented by: [id number] Cosigned by: [id number] Admin: 07/22/21 20:32 Dose: 3 units Documented by: [id number] Cosigned by: [id number] Admin: 07/22/21 18:08 Dose: 10 units Documented by: [id number] Cosigned by: [id number] Admin: 07/22/21 13:03 Dose: 7 units Documented by: [id number] Cosigned by: [id number] Admin: 07/22/21 09:40 Dose: 7 units Documented by: [id number] Cosigned by: [id number] Admin: 07/21/21 21:45 Dose: 6 units Documented by: [id number] Cosigned by: [id number] Admin: 07/21/21 17:41 Dose: 7 units Documented by: [id number] Cosigned by: [id number] Admin: 07/21/21 13:00 Dose: 8 units Documented by: [id number] Cosigned by: [id number] Admin: 07/21/21 08:53 Dose: 7 units Documented by: [id number] Cosigned by: [id number] Admin: 07/20/21 21:56 Dose: 5 units Documented by: [id number] Cosigned by: [id number] Admin: 07/20/21 17:46 Dose: 5 units Documented by: [id number] Cosigned by: [id number] Admin: 07/20/21 13:17 Dose: 6 units Documented by: [id number] Cosigned by: [id number] Admin: 07/20/21 09:56 Dose: 5 units Documented by: [id number] Cosigned by: [id number] Admin: 07/19/21 21:14 Dose: 8 units Documented by: [id number] Cosigned by: [id number] Admin: 07/19/21 18:08 Dose: 8 units Documented by: [id number] Cosigned by: [id number] Admin: 07/19/21 13:20 Dose: 8 units Documented by: [id number] Cosigned by: [id number] Admin: 07/19/21 09:16 Dose: 6 units Documented by: [id number] Cosigned by: [id number] Admin: 07/18/21 23:36 Dose: 5 units Documented by: [id number] Cosigned by: [id number] Admin: 07/18/21 21:16 Dose: 5 units Documented by: [id number] Cosigned by: [id number] Admin: 07/18/21 17:34 Dose: 7 units Documented by: [id number] Cosigned by: [id number] Admin: 07/18/21 12:25 Dose: 10 units Documented by: [id number] Cosigned by: [id number] Admin: 07/18/21 09:42 Dose: 8 units Documented by: [id number] Cosigned by: [id number] Admin: 07/17/21 20:44 Dose: 6 units Documented by: [id number] Cosigned by: [id number] Admin: 07/17/21 17:59 Dose: 5 units Documented by: [id number] Cosigned by: [id number] Admin: 07/17/21 12:30 Dose: 8 units Documented by: [id number] Cosigned by: [id number] Admin: 07/17/21 09:32 Dose: 9 units Documented by: [id number] Cosigned by: [id number] Admin: 07/16/21 20:42 Dose: 7 units Documented by: [id number] Cosigned by: [id number] Admin: 07/16/21 18:14 Dose: 8 units Documented by: [id number] Cosigned by: [id number] Admin: 07/16/21 13:09 Dose: 11 units Documented by: [id number] Cosigned by: [id number] Admin: 07/16/21 08:55 Dose: 5 units Documented by: [id number] Cosigned by: [id number] Admin: 07/15/21 20:29 Dose: 7 units Documented by: [id number] Cosigned by: [id number] Admin: 07/15/21 17:52 Dose: 8 units Documented by: [id number] Cosigned by: [id number] Admin: 07/15/21 12:44 Dose: 9 units Documented by: [id number] Cosigned by: [id number] Admin: 07/15/21 09:17 Dose: 7 units Documented by: [id number] Cosigned by: [id number] Admin: 07/14/21 21:15 Dose: 7 units Documented by: [id number] Cosigned by: [id number] Admin: 07/14/21 17:16 Dose: 8 units Documented by: [id number] Cosigned by: [id number] Admin: 07/14/21 12:13 Dose: 7 units Documented by: [id number] Cosigned by: [id number] Admin: 07/14/21 08:38 Dose: 7 units Documented by: [id number] Cosigned by: [id number] Admin: 07/13/21 20:26 Dose: 10 units Documented by: [id number] Cosigned by: [id number] Admin: 07/13/21 17:17 Dose: 7 units Documented by: [id number] Cosigned by: [id number] Admin: 07/13/21 12:18 Dose: 9 units Documented by: [id number] Cosigned by: [id number] Admin: 07/13/21 09:02 Dose: 8 units Documented by: [id number] Cosigned by: [id number] Admin: 07/12/21 21:06 Dose: 5 units Documented by: [id number] Cosigned by: [id number] Admin: 07/12/21 17:05 Dose: 6 units Documented by: [id number] Cosigned by: [id number] Admin: 07/12/21 12:20 Dose: 10 units Documented by: [id number] Cosigned by: [id number] Admin: 07/12/21 08:34 Dose: 6 units Documented by: [id number] Cosigned by: [id number] Admin: 07/11/21 22:35 Dose: 8 units Documented by: [id number] Cosigned by: [id number] Admin: 07/11/21 16:58 Dose: 5 units Documented by: [id number] Cosigned by: [id number] Admin: 07/11/21 12:16 Dose: 6 units Documented by: [id number] Cosigned by: [id number] Admin: 07/11/21 08:42 Dose: 10 units Documented by: [id number] Cosigned by: [id number] Admin: 07/10/21 20:08 Dose: 2 units Documented by: [id number] Cosigned by: [id number] Admin: 07/10/21 17:14 Dose: 6 units Documented by: [id number] Cosigned by: [id number] Admin: 07/10/21 12:00 Dose: 8 units Documented by: [id number] Cosigned by: [id number] Admin: 07/10/21 08:47 Dose: 8 units Documented by: [id number] Cosigned by: [id number] Admin: 07/09/21 20:28 Dose: 2 units Documented by: [id number] Cosigned by: [id number] Admin: 07/09/21 16:55 Dose: 8 units Documented by: [id number] Cosigned by: [id number] Admin: 07/09/21 11:57 Dose: 8 units Documented by: [id number] Cosigned by: [id number] Admin: 07/09/21 08:31 Dose: 7 units Documented by: [id number] Cosigned by: [id number] Admin: 07/08/21 21:48 Dose: 9 units Documented by: [id number] Cosigned by: [id number] Admin: 07/08/21 17:36 Dose: 6 units Documented by: [id number] Cosigned by: [id number] Admin: 07/08/21 11:51 Dose: 7 units Documented by: [id number] Cosigned by: [id number] Admin: 07/08/21 08:29 Dose: 7 units Documented by: [id number] Cosigned by: [id number] Admin: 07/07/21 21:41 Dose: 2 units Documented by: [id number] Cosigned by: [id number] Admin: 07/07/21 17:36 Dose: 6 units Documented by: [id number] Cosigned by: [id number] Admin: 07/07/21 12:06 Dose: 8 units Documented by: [id number] Cosigned by: [id number] Admin: 07/07/21 08:43 Dose: 6 units Documented by: [id number] Cosigned by: [id number] Admin: 07/06/21 21:49 Dose: 7 units Documented by: [id number] Cosigned by: [id number] Admin: 07/06/21 17:31 Dose: 4 units Documented by: [id number] Cosigned by: [id number] Admin: 07/06/21 12:00 Dose: 8 units Documented by: [id number] Cosigned by: [id number] Admin: 07/06/21 08:40 Dose: 8 units Documented by: [id number] Cosigned by: [id number] Admin: 07/05/21 20:09 Dose: 11 units Documented by: [id number] Cosigned by: [id number] Admin: 07/05/21 16:46 Dose: 18 units Documented by: [id number] Cosigned by: [id number] Admin: 07/05/21 11:58 Dose: 23 units Documented by: [id number] Cosigned by: [id number] Admin: 07/05/21 08:10 Dose: 6 units Documented by: [id number] Cosigned by: [id number] Insulin Glargine (Insulin Glargine Solostar 100 Units/Ml 3 Ml Pen) 50 units SC HS [facility] Stop: 08/04/21 20:59 Last Admin: 07/30/21 21:17 Dose: 50 units Documented by: [id number] Cosigned by: [id number] Admin: 07/29/21 21:04 Dose: 50 units Documented by: [id number] Cosigned by: [id number] Admin: 07/28/21 21:22 Dose: 50 units Documented by: [id number] Cosigned by: [id number] Admin: 07/27/21 21:55 Dose: 50 units Documented by: [id number] Cosigned by: [id number] Admin: 07/26/21 21:12 Dose: 50 units Documented by: [id number] Cosigned by: [id number] Admin: 07/25/21 21:35 Dose: 50 units Documented by: [id number] Cosigned by: [id number] Admin: 07/24/21 21:21 Dose: 50 units Documented by: [id number] Cosigned by: [id number] Admin: 07/23/21 20:43 Dose: 50 units Documented by: [id number] Cosigned by: [id number] Admin: 07/22/21 20:33 Dose: 50 units Documented by: [id number] Cosigned by: [id number] Admin: 07/21/21 21:36 Dose: 50 units Documented by: [id number] Cosigned by: [id number] Admin: 07/20/21 21:51 Dose: 50 units Documented by: [id number] Cosigned by: [id number] Admin: 07/19/21 21:13 Dose: 50 units Documented by: [id number] Cosigned by: [id number] Admin: 07/18/21 21:14 Dose: 50 units Documented by: [id number] Cosigned by: [id number] Admin: 07/17/21 20:45 Dose: 50 units Documented by: [id number] Cosigned by: [id number] Admin: 07/16/21 20:43 Dose: 50 units Documented by: [id number] Cosigned by: [id number] Admin: 07/15/21 22:47 Dose: 50 units Documented by: [id number] Cosigned by: [id number] Admin: 07/14/21 21:16 Dose: 50 units Documented by: [id number] Cosigned by: [id number] Admin: 07/13/21 20:26 Dose: 50 units Documented by: [id number] Cosigned by: [id number] Admin: 07/12/21 21:08 Dose: 50 units Documented by: [id number] Cosigned by: [id number] Admin: 07/11/21 22:06 Dose: 50 units Documented by: [id number] Cosigned by: [id number] Admin: 07/10/21 20:07 Dose: 50 units Documented by: [id number] Cosigned by: [id number] Admin: 07/09/21 20:27 Dose: 50 units Documented by: [id number] Cosigned by: [id number] Admin: 07/08/21 21:48 Dose: 50 units Documented by: [id number] Cosigned by: [id number] Admin: 07/07/21 21:43 Dose: 50 units Documented by: [id number] Cosigned by: [id number] Admin: 07/06/21 21:47 Dose: 50 units Documented by: [id number] Cosigned by: [id number] Admin: 07/05/21 20:11 Dose: 50 units Documented by: [id number] Cosigned by: [id number] Isosorbide Mononitrate (Isosorbide [place] Extended Rel 30 Mg Tabcr) 30 mg PO DAILY EMPERATRIZ Stop: 08/04/21 08:59 Last Admin: 07/31/21 09:23 Dose: 30 mg Documented by: [id number] Admin: 07/30/21 09:10 Dose: 30 mg Documented by: [id number] Admin: 07/29/21 08:46 Dose: 30 mg Documented by: [id number] Admin: 07/28/21 08:51 Dose: 30 mg Documented by: [id number] Admin: 07/27/21 09:19 Dose: 30 mg Documented by: [id number] Admin: 07/26/21 09:08 Dose: 30 mg Documented by: [id number] Admin: 07/25/21 09:17 Dose: 30 mg Documented by: [id number] Admin: 07/24/21 09:04 Dose: 30 mg Documented by: [id number] Admin: 07/23/21 08:41 Dose: 30 mg Documented by: [id number] Admin: 07/22/21 09:44 Dose: 30 mg Documented by: [id number] Admin: 07/21/21 09:09 Dose: 30 mg Documented by: [id number] Admin: 07/20/21 09:58 Dose: 30 mg Documented by: [id number] Admin: 07/19/21 09:08 Dose: 30 mg Documented by: [id number] Admin: 07/18/21 09:31 Dose: 30 mg Documented by: [id number] Admin: 07/17/21 09:15 Dose: 30 mg Documented by: [id number] Admin: 07/16/21 08:11 Dose: 30 mg Documented by: [id number] Admin: 07/15/21 08:59 Dose: 30 mg Documented by: [id number] Admin: 07/14/21 08:42 Dose: 30 mg Documented by: [id number] Admin: 07/13/21 08:58 Dose: 30 mg Documented by: [id number] Admin: 07/12/21 08:28 Dose: 30 mg Documented by: [id number] Admin: 07/11/21 08:51 Dose: 30 mg Documented by: [id number] Admin: 07/10/21 08:40 Dose: 30 mg Documented by: [id number] Admin: 07/09/21 08:35 Dose: 30 mg Documented by: [id number] Admin: 07/08/21 08:43 Dose: 30 mg Documented by: [id number] Admin: 07/07/21 08:44 Dose: 30 mg Documented by: [id number] Admin: 07/06/21 08:53 Dose: 30 mg Documented by: [id number] Admin: 07/05/21 08:14 Dose: 30 mg Documented by: [id number] Lactobacillus Acidoph/Casei/Rhamnos (Advanced Probiotic 1250 Mg Capsule) 2 cap PO TID EMPERATRIZ Stop: 08/04/21 08:59 Last Admin: 07/31/21 09:22 Dose: 2 cap Documented by: [id number] Admin: 07/30/21 21:04 Dose: 2 cap Documented by: [id number] Admin: 07/30/21 14:57 Dose: 2 cap Documented by: [id number] Admin: 07/30/21 09:09 Dose: 2 cap Documented by: [id number] Admin: 07/29/21 21:00 Dose: 2 cap Documented by: [id number] Admin: 07/29/21 16:20 Dose: 2 cap Documented by: [id number] Admin: 07/29/21 08:46 Dose: 2 cap Documented by: [id number] Admin: 07/28/21 20:46 Dose: 2 cap Documented by: [id number] Admin: 07/28/21 13:53 Dose: 2 cap Documented by: [id number] Admin: 07/28/21 08:52 Dose: 2 cap Documented by: [id number] Admin: 07/27/21 21:54 Dose: 2 cap Documented by: [id number] Admin: 07/27/21 14:12 Dose: 2 cap Documented by: [id number] Admin: 07/27/21 09:19 Dose: 2 cap Documented by: [id number] Admin: 07/26/21 21:11 Dose: 2 cap Documented by: [id number] Admin: 07/26/21 14:21 Dose: 2 cap Documented by: [id number] Admin: 07/26/21 09:01 Dose: 2 cap Documented by: [id number] Admin: 07/25/21 21:33 Dose: 2 cap Documented by: [id number] Admin: 07/25/21 13:00 Dose: 2 cap Documented by: [id number] Admin: 07/25/21 09:17 Dose: 2 cap Documented by: [id number] Admin: 07/24/21 21:27 Dose: 2 cap Documented by: [id number] Admin: 07/24/21 13:59 Dose: 2 cap Documented by: [id number] Admin: 07/24/21 09:06 Dose: 2 cap Documented by: [id number] Admin: 07/23/21 21:38 Dose: 2 cap Documented by: [id number] Admin: 07/23/21 13:27 Dose: 2 cap Documented by: [id number] Admin: 07/23/21 08:39 Dose: 2 cap Documented by: [id number] Admin: 07/22/21 21:44 Dose: 2 cap Documented by: [id number] Admin: 07/22/21 14:45 Dose: 2 cap Documented by: [id number] Admin: 07/22/21 09:45 Dose: 2 cap Documented by: [id number] Admin: 07/21/21 21:30 Dose: 2 cap Documented by: [id number] Admin: 07/21/21 13:03 Dose: 2 cap Documented by: [id number] Admin: 07/21/21 09:08 Dose: 2 cap Documented by: [id number] Admin: 07/20/21 20:38 Dose: 2 cap Documented by: [id number] Admin: 07/20/21 13:32 Dose: 2 cap Documented by: [id number] Admin: 07/20/21 09:58 Dose: 2 cap Documented by: [id number] Admin: 07/19/21 21:15 Dose: 2 cap Documented by: [id number] Admin: 07/19/21 13:26 Dose: 2 cap Documented by: [id number] Admin: 07/19/21 09:07 Dose: 2 cap Documented by: [id number] Admin: 07/18/21 21:13 Dose: 2 cap Documented by: [id number] Admin: 07/18/21 15:43 Dose: 2 cap Documented by: [id number] Admin: 07/18/21 09:31 Dose: 2 cap Documented by: [id number] Admin: 07/17/21 20:33 Dose: 2 cap Documented by: [id number] Admin: 07/17/21 15:02 Dose: 2 cap Documented by: [id number] Admin: 07/17/21 09:15 Dose: 2 cap Documented by: [id number] Admin: 07/16/21 20:25 Dose: 2 cap Documented by: [id number] Admin: 07/16/21 13:07 Dose: 2 cap Documented by: [id number] Admin: 07/16/21 08:13 Dose: 2 cap Documented by: [id number] Admin: 07/15/21 20:34 Dose: 2 cap Documented by: [id number] Admin: 07/15/21 13:27 Dose: 2 cap Documented by: [id number] Admin: 07/15/21 08:59 Dose: 2 cap Documented by: [id number] Admin: 07/14/21 21:16 Dose: 2 cap Documented by: [id number] Admin: 07/14/21 14:11 Dose: 2 cap Documented by: [id number] Admin: 07/14/21 08:46 Dose: 2 cap Documented by: [id number] Admin: 07/13/21 20:21 Dose: 2 cap Documented by: [id number] Admin: 07/13/21 14:11 Dose: 2 cap Documented by: [id number] Admin: 07/13/21 08:59 Dose: 2 cap Documented by: [id number] Admin: 07/12/21 21:05 Dose: 2 cap Documented by: [id number] Admin: 07/12/21 14:22 Dose: 2 cap Documented by: [id number] Admin: 07/12/21 08:31 Dose: 2 cap Documented by: [id number] Admin: 07/11/21 21:05 Dose: 2 cap Documented by: [id number] Admin: 07/11/21 14:34 Dose: 2 cap Documented by: [id number] Admin: 07/11/21 08:49 Dose: 2 cap Documented by: [id number] Admin: 07/10/21 20:03 Dose: 2 cap Documented by: [id number] Admin: 07/10/21 14:07 Dose: 2 cap Documented by: [id number] Admin: 07/10/21 08:39 Dose: 2 cap Documented by: [id number] Admin: 07/09/21 20:12 Dose: 2 cap Documented by: [id number] Admin: 07/09/21 14:57 Dose: 2 cap Documented by: [id number] Admin: 07/09/21 08:37 Dose: 2 cap Documented by: [id number] Admin: 07/08/21 21:43 Dose: 2 cap Documented by: [id number] Admin: 07/08/21 14:14 Dose: 2 cap Documented by: [id number] Admin: 07/08/21 08:44 Dose: 2 cap Documented by: [id number] Admin: 07/07/21 21:46 Dose: 2 cap Documented by: [id number] Admin: 07/07/21 14:27 Dose: 2 cap Documented by: [id number] Admin: 07/07/21 08:46 Dose: 2 cap Documented by: [id number] Admin: 07/06/21 21:38 Dose: 2 cap Documented by: [id number] Admin: 07/06/21 14:33 Dose: 2 cap Documented by: [id number] Admin: 07/06/21 08:56 Dose: 2 cap Documented by: [id number] Admin: 07/05/21 20:08 Dose: 2 cap Documented by: [id number] Admin: 07/05/21 13:30 Dose: 2 cap Documented by: [id number] Admin: 07/05/21 08:16 Dose: 2 cap Documented by: [id number] Lorazepam (Lorazepam 0.5 Mg Tab) 0.5 mg PO Q8 PRN PRN Reason: Anxiety Stop: 08/04/21 06:04 Last Admin: 07/30/21 22:34 Dose: 0.5 mg Documented by: [id number] Admin: 07/30/21 09:09 Dose: 0.5 mg Documented by: [id number] Admin: 07/29/21 20:17 Dose: 0.5 mg Documented by: [id number] Admin: 07/29/21 08:56 Dose: 0.5 mg Documented by: [id number] Admin: 07/28/21 22:00 Dose: 0.5 mg Documented by: [id number] Admin: 07/27/21 21:52 Dose: 0.5 mg Documented by: [id number] Admin: 07/27/21 09:15 Dose: 0.5 mg Documented by: [id number] Admin: 07/26/21 21:09 Dose: 0.5 mg Documented by: [id number] Admin: 07/26/21 08:54 Dose: 0.5 mg Documented by: [id number] Admin: 07/25/21 21:31 Dose: 0.5 mg Documented by: [id number] Admin: 07/25/21 09:41 Dose: 0.5 mg Documented by: [id number] Admin: 07/24/21 21:40 Dose: 0.5 mg Documented by: [id number] Admin: 07/24/21 09:03 Dose: 0.5 mg Documented by: [id number] Admin: 07/23/21 21:37 Dose: 0.5 mg Documented by: [id number] Admin: 07/23/21 09:08 Dose: 0.5 mg Documented by: [id number] Admin: 07/22/21 21:41 Dose: 0.5 mg Documented by: [id number] Admin: 07/22/21 09:54 Dose: 0.5 mg Documented by: [id number] Admin: 07/21/21 21:38 Dose: 0.5 mg Documented by: [id number] Admin: 07/21/21 09:09 Dose: 0.5 mg Documented by: [id number] Admin: 07/20/21 20:32 Dose: 0.5 mg Documented by: [id number] Admin: 07/20/21 10:17 Dose: 0.5 mg Documented by: [id number] Admin: 07/19/21 21:12 Dose: 0.5 mg Documented by: [id number] Admin: 07/19/21 09:26 Dose: 0.5 mg Documented by: [id number] Admin: 07/18/21 21:47 Dose: 0.5 mg Documented by: [id number] Admin: 07/18/21 09:42 Dose: 0.5 mg Documented by: [id number] Admin: 07/17/21 20:32 Dose: 0.5 mg Documented by: [id number] Admin: 07/17/21 09:31 Dose: 0.5 mg Documented by: [id number] Admin: 07/16/21 20:24 Dose: 0.5 mg Documented by: [id number] Admin: 07/16/21 08:11 Dose: 0.5 mg Documented by: [id number] Admin: 07/15/21 22:43 Dose: 0.5 mg Documented by: [id number] Admin: 07/15/21 09:11 Dose: 0.5 mg Documented by: [id number] Admin: 07/14/21 21:09 Dose: 0.5 mg Documented by: [id number] Admin: 07/14/21 09:09 Dose: 0.5 mg Documented by: [id number] Admin: 07/13/21 20:21 Dose: 0.5 mg Documented by: [id number] Admin: 07/13/21 09:13 Dose: 0.5 mg Documented by: [id number] Admin: 07/12/21 21:11 Dose: 0.5 mg Documented by: [id number] Admin: 07/12/21 08:41 Dose: 0.5 mg Documented by: [id number] Admin: 07/11/21 22:07 Dose: 0.5 mg Documented by: [id number] Admin: 07/11/21 10:06 Dose: 0.5 mg Documented by: [id number] Admin: 07/10/21 20:00 Dose: 0.5 mg Documented by: [id number] Admin: 07/10/21 08:39 Dose: 0.5 mg Documented by: [id number] Admin: 07/09/21 20:21 Dose: 0.5 mg Documented by: [id number] Admin: 07/09/21 08:34 Dose: 0.5 mg Documented by: [id number] Admin: 07/08/21 21:43 Dose: 0.5 mg Documented by: [id number] Admin: 07/08/21 08:41 Dose: 0.5 mg Documented by: [id number] Admin: 07/07/21 21:38 Dose: 0.5 mg Documented by: [id number] Admin: 07/07/21 08:54 Dose: 0.5 mg Documented by: [id number] Admin: 07/06/21 21:44 Dose: 0.5 mg Documented by: [id number] Admin: 07/06/21 09:02 Dose: 0.5 mg Documented by: [id number] Admin: 07/05/21 20:20 Dose: 0.5 mg Documented by: [id number] Admin: 07/05/21 08:44 Dose: 0.5 mg Documented by: [id number] Melatonin (Melatonin 3 Mg Tab) 9 mg PO HS PRN PRN Reason: Sleep Stop: 08/05/21 23:06 Last Admin: 07/30/21 22:35 Dose: 9 mg Documented by: [id number] Admin: 07/29/21 20:54 Dose: 9 mg Documented by: [id number] Admin: 07/28/21 22:00 Dose: 9 mg Documented by: [id number] Admin: 07/27/21 21:52 Dose: 9 mg Documented by: [id number] Admin: 07/26/21 21:09 Dose: 9 mg Documented by: [id number] Admin: 07/25/21 21:30 Dose: 9 mg Documented by: [id number] Admin: 07/24/21 21:40 Dose: 9 mg Documented by: [id number] Admin: 07/23/21 21:37 Dose: 9 mg Documented by: [id number] Admin: 07/22/21 21:41 Dose: 9 mg Documented by: [id number] Admin: 07/21/21 21:39 Dose: 9 mg Documented by: [id number] Admin: 07/20/21 20:32 Dose: 9 mg Documented by: [id number] Admin: 07/19/21 21:12 Dose: 9 mg Documented by: [id number] Admin: 07/18/21 21:47 Dose: 9 mg Documented by: [id number] Admin: 07/17/21 20:32 Dose: 9 mg Documented by: [id number] Admin: 07/16/21 20:24 Dose: 9 mg Documented by: [id number] Admin: 07/15/21 22:43 Dose: 9 mg Documented by: [id number] Admin: 07/14/21 21:09 Dose: 9 mg Documented by: [id number] Admin: 07/13/21 20:21 Dose: 9 mg Documented by: [id number] Admin: 07/12/21 21:10 Dose: 9 mg Documented by: [id number] Admin: 07/11/21 22:07 Dose: 9 mg Documented by: [id number] Admin: 07/10/21 20:01 Dose: 9 mg Documented by: [id number] Admin: 07/09/21 20:20 Dose: 9 mg Documented by: [id number] Admin: 07/08/21 21:43 Dose: 9 mg Documented by: [id number] Admin: 07/07/21 21:38 Dose: 9 mg Documented by: [id number] Admin: 07/07/21 00:00 Dose: 9 mg Documented by: [id number] Methenamine Hippurate (Methenamine Hippurate 1 Gm Tab) 1 gm PO DAILY E[facility]ATRIZ Stop: 08/04/21 08:59 Last Admin: 07/12/21 08:31 Dose: 1 gm Documented by: [id number] Admin: 07/11/21 09:07 Dose: 1 gm Documented by: [id number] Admin: 07/10/21 08:39 Dose: 1 gm Documented by: [id number] Admin: 07/09/21 08:35 Dose: 1 gm Documented by: [id number] Admin: 07/08/21 08:41 Dose: 1 gm Documented by: [id number] Admin: 07/07/21 08:45 Dose: 1 gm Documented by: [id number] Admin: 07/06/21 08:52 Dose: 1 gm Documented by: [id number] Admin: 07/05/21 08:11 Dose: 1 gm Documented by: [id number] Metoprolol Succinate (Metoprolol Succ 25mg Ext Rel Tab) 75 mg PO BID EMPERATRIZ Stop: 08/04/21 08:59 Last Admin: 07/31/21 09:22 Dose: 75 mg Documented by: [id number] Admin: 07/30/21 21:05 Dose: 75 mg Documented by: [id number] Admin: 07/30/21 09:09 Dose: 75 mg Documented by: [id number] Admin: 07/29/21 21:00 Dose: 75 mg Documented by: [id number] Admin: 07/29/21 08:46 Dose: 75 mg Documented by: [id number] Admin: 07/28/21 20:45 Dose: 75 mg Documented by: [id number] Admin: 07/28/21 08:51 Dose: 75 mg Documented by: [id number] Admin: 07/27/21 21:53 Dose: 75 mg Documented by: [id number] Admin: 07/27/21 09:33 Dose: 75 mg Documented by: [id number] Admin: 07/26/21 21:11 Dose: 75 mg Documented by: [id number] Admin: 07/26/21 09:08 Dose: 75 mg Documented by: [id number] Admin: 07/25/21 21:32 Dose: 75 mg Documented by: [id number] Admin: 07/25/21 09:16 Dose: 75 mg Documented by: [id number] Admin: 07/24/21 21:26 Dose: 75 mg Documented by: [id number] Admin: 07/24/21 09:07 Dose: 75 mg Documented by: [id number] Admin: 07/23/21 21:38 Dose: 75 mg Documented by: [id number] Admin: 07/23/21 10:10 Dose: Not Given Documented by: [id number] Admin: 07/22/21 21:42 Dose: 75 mg Documented by: [id number] Admin: 07/22/21 09:45 Dose: 75 mg Documented by: [id number] Admin: 07/21/21 21:30 Dose: 75 mg Documented by: [id number] Admin: 07/21/21 09:09 Dose: 75 mg Documented by: [id number] Admin: 07/20/21 20:35 Dose: 75 mg Documented by: [id number] Admin: 07/20/21 09:57 Dose: 75 mg Documented by: [id number] Admin: 07/19/21 21:15 Dose: 75 mg Documented by: [id number] Admin: 07/19/21 09:08 Dose: 75 mg Documented by: [id number] Admin: 07/18/21 21:13 Dose: 75 mg Documented by: [id number] Admin: 07/18/21 09:31 Dose: 75 mg Documented by: [id number] Admin: 07/17/21 20:34 Dose: 75 mg Documented by: [id number] Admin: 07/17/21 09:16 Dose: Not Given Documented by: [id number] Admin: 07/16/21 20:24 Dose: 75 mg Documented by: [id number] Admin: 07/16/21 08:11 Dose: 75 mg Documented by: [id number] Admin: 07/15/21 22:46 Dose: 75 mg Documented by: [id number] Admin: 07/15/21 09:00 Dose: 75 mg Documented by: [id number] Admin: 07/14/21 21:17 Dose: 75 mg Documented by: [id number] Admin: 07/14/21 08:44 Dose: 75 mg Documented by: [id number] Admin: 07/13/21 20:21 Dose: 75 mg Documented by: [id number] Admin: 07/13/21 08:59 Dose: 75 mg Documented by: [id number] Admin: 07/12/21 21:05 Dose: 75 mg Documented by: [id number] Admin: 07/12/21 08:42 Dose: 75 mg Documented by: [id number] Admin: 07/11/21 21:05 Dose: 75 mg Documented by: [id number] Admin: 07/11/21 09:04 Dose: 75 mg Documented by: [id number] Admin: 07/10/21 20:04 Dose: 75 mg Documented by: [id number] Admin: 07/10/21 08:39 Dose: 75 mg Documented by: [id number] Admin: 07/09/21 20:10 Dose: 75 mg Documented by: [id number] Admin: 07/09/21 08:35 Dose: 75 mg Documented by: [id number] Admin: 07/08/21 22:02 Dose: 75 mg Documented by: [id number] Admin: 07/08/21 08:45 Dose: 75 mg Documented by: [id number] Admin: 07/07/21 21:47 Dose: 75 mg Documented by: [id number] Admin: 07/07/21 08:45 Dose: 75 mg Documented by: [id number] Admin: 07/06/21 21:40 Dose: 75 mg Documented by: [id number] Admin: 07/06/21 08:50 Dose: 75 mg Documented by: [id number] Admin: 07/05/21 20:27 Dose: 75 mg Documented by: [id number] Admin: 07/05/21 08:15 Dose: 75 mg Documented by: [id number] Miscellaneous (Remove Nicoderm Patch) 1 ea N/A [id number]@[id number] EMPERATRIZ Stop: 08/04/21 08:58 Last Admin: 07/31/21 09:33 Dose: 1 ea Documented by: [id number] Admin: 07/30/21 09:10 Dose: 1 ea Documented by: [id number] Admin: 07/29/21 08:48 Dose: 1 ea Documented by: [id number] Admin: 07/28/21 08:52 Dose: 1 ea Documented by: [id number] Admin: 07/27/21 09:20 Dose: 1 ea Documented by: [id number] Admin: 07/26/21 09:01 Dose: 1 ea Documented by: [id number] Admin: 07/25/21 09:44 Dose: 1 ea Documented by: [id number] Admin: 07/24/21 09:08 Dose: 1 ea Documented by: [id number] Admin: 07/23/21 08:42 Dose: 1 ea Documented by: [id number] Admin: 07/22/21 09:43 Dose: 1 ea Documented by: [id number] Admin: 07/21/21 09:16 Dose: 1 ea Documented by: [id number] Admin: 07/20/21 09:59 Dose: 1 ea Documented by: [id number] Admin: 07/19/21 09:14 Dose: 1 ea Documented by: [id number] Admin: 07/18/21 09:27 Dose: 1 ea Documented by: [id number] Admin: 07/17/21 09:14 Dose: 1 ea Documented by: [id number] Admin: 07/16/21 08:12 Dose: 1 ea Documented by: [id number] Admin: 07/15/21 08:52 Dose: 1 ea Documented by: [id number] Admin: 07/14/21 08:41 Dose: 1 ea Documented by: [id number] Admin: 07/13/21 09:01 Dose: 1 ea Documented by: [id number] Admin: 07/12/21 08:35 Dose: 1 ea Documented by: [id number] Admin: 07/11/21 08:43 Dose: 1 ea Documented by: [id number] Admin: 07/10/21 08:42 Dose: 1 ea Documented by: [id number] Admin: 07/09/21 08:43 Dose: 1 ea Documented by: [id number] Admin: 07/08/21 08:37 Dose: 1 ea Documented by: [id number] Admin: 07/07/21 08:43 Dose: 1 ea Documented by: [id number] Admin: 07/06/21 08:49 Dose: 1 ea Documented by: [id number] Admin: 07/05/21 08:50 Dose: Not Given Documented by: [id number] Nicotine (Nicotine 21 Mg/24 Hr Tdsy) 21 mg TD DAILY EMPERATRIZ Stop: 08/04/21 08:59 Last Admin: 07/31/21 09:27 Dose: 21 mg Documented by: [id number] Admin: 07/30/21 09:11 Dose: 21 mg Documented by: [id number] Admin: 07/29/21 08:46 Dose: 21 mg Documented by: [id number] Admin: 07/28/21 08:52 Dose: 21 mg Documented by: [id number] Admin: 07/27/21 09:16 Dose: 21 mg Documented by: [id number] Admin: 07/26/21 08:56 Dose: 21 mg Documented by: [id number] Admin: 07/25/21 09:44 Dose: 21 mg Documented by: [id number] Admin: 07/24/21 09:04 Dose: 21 mg Documented by: [id number] Admin: 07/23/21 08:40 Dose: 21 mg Documented by: [id number] Admin: 07/22/21 09:46 Dose: 21 mg Documented by: [id number] Admin: 07/21/21 09:13 Dose: 21 mg Documented by: [id number] Admin: 07/20/21 09:59 Dose: 21 mg Documented by: [id number] Admin: 07/19/21 09:13 Dose: 21 mg Documented by: [id number] Admin: 07/18/21 09:26 Dose: 21 mg Documented by: [id number] Admin: 07/17/21 09:16 Dose: 21 mg Documented by: [id number] Admin: 07/16/21 08:10 Dose: 21 mg Documented by: [id number] Admin: 07/15/21 09:00 Dose: 21 mg Documented by: [id number] Admin: 07/14/21 08:46 Dose: 21 mg Documented by: [id number] Admin: 07/13/21 08:57 Dose: 21 mg Documented by: [id number] Admin: 07/12/21 08:33 Dose: 21 mg Documented by: [id number] Admin: 07/11/21 10:00 Dose: 21 mg Documented by: [id number] Admin: 07/10/21 08:40 Dose: 21 mg Documented by: [id number] Admin: 07/09/21 08:38 Dose: 21 mg Documented by: [id number] Admin: 07/08/21 08:38 Dose: 21 mg Documented by: [id number] Admin: 07/07/21 08:45 Dose: 21 mg Documented by: [id number] Admin: 07/06/21 08:50 Dose: 21 mg Documented by: [id number] Admin: 07/05/21 08:17 Dose: 21 mg Documented by: [id number] Nystatin (Nystatin Oint 15 Gm Tube) 1 appln EXT BID EMPERATRIZ Stop: 08/27/21 23:29 Last Admin: 07/31/21 09:30 Dose: 1 appln Documented by: [id number] Admin: 07/30/21 21:05 Dose: Not Given Documented by: [id number] Admin: 07/30/21 09:12 Dose: 1 appln Documented by: [id number] Admin: 07/29/21 21:02 Dose: 1 appln Documented by: [id number] Admin: 07/29/21 08:49 Dose: 1 appln Documented by: [id number] Admin: 07/29/21 00:31 Dose: 1 appln Documented by: [id number] Ondansetron HCl (Ondansetron 4 Mg Od Tab) 4 mg PO Q8 PRN PRN Reason: Nausea And Vomiting Stop: 08/04/21 07:09 Last Admin: 07/28/21 13:56 Dose: 4 mg Documented by: [id number] Pantoprazole Sodium (Pantoprazole 40 Mg Tab) 40 mg PO DAILYBB [facility] Stop: 08/04/21 07:29 Last Admin: 07/31/21 06:13 Dose: 40 mg Documented by: [id number] Admin: 07/30/21 05:44 Dose: 40 mg Documented by: [id number] Admin: 07/29/21 05:41 Dose: 40 mg Documented by: [id number] Admin: 07/28/21 06:38 Dose: 40 mg Documented by: [id number] Admin: 07/27/21 07:05 Dose: 40 mg Documented by: [id number] Admin: 07/26/21 07:21 Dose: 40 mg Documented by: [id number] Admin: 07/25/21 06:27 Dose: 40 mg Documented by: [id number] Admin: 07/24/21 06:27 Dose: 40 mg Documented by: [id number] Admin: 07/23/21 06:32 Dose: 40 mg Documented by: [id number] Admin: 07/22/21 05:41 Dose: 40 mg Documented by: [id number] Admin: 07/21/21 05:52 Dose: 40 mg Documented by: [id number] Admin: 07/20/21 07:16 Dose: 40 mg Documented by: [id number] Admin: 07/19/21 05:52 Dose: 40 mg Documented by: [id number] Admin: 07/18/21 04:38 Dose: 40 mg Documented by: [id number] Admin: 07/17/21 05:46 Dose: 40 mg Documented by: [id number] Admin: 07/16/21 05:33 Dose: 40 mg Documented by: [id number] Admin: 07/15/21 05:47 Dose: 40 mg Documented by: [id number] Admin: 07/14/21 06:30 Dose: 40 mg Documented by: [id number] Admin: 07/13/21 06:05 Dose: 40 mg Documented by: [id number] Admin: 07/12/21 06:37 Dose: 40 mg Documented by: [id number] Admin: 07/11/21 06:28 Dose: 40 mg Documented by: [id number] Admin: 07/10/21 05:47 Dose: 40 mg Documented by: [id number] Admin: 07/09/21 05:53 Dose: 40 mg Documented by: [id number] Admin: 07/08/21 06:40 Dose: 40 mg Documented by: [id number] Admin: 07/07/21 06:16 Dose: 40 mg Documented by: [id number] Admin: 07/06/21 05:38 Dose: 40 mg Documented by: [id number] Admin: 07/05/21 08:15 Dose: 40 mg Documented by: [id number] Phenazopyridine HCl (Phenazopyridine Hcl 100 Mg Tab) 100 mg PO TID PRN PRN Reason: Dysuria Stop: 08/09/21 11:05 Last Admin: 07/14/21 14:11 Dose: 100 mg Documented by: [id number] Admin: 07/14/21 08:45 Dose: 100 mg Documented by: [id number] Admin: 07/13/21 15:00 Dose: 100 mg Documented by: [id number] Admin: 07/12/21 05:00 Dose: 100 mg Documented by: [id number] Admin: 07/10/21 23:01 Dose: 100 mg Documented by: [id number] Admin: 07/10/21 14:09 Dose: 100 mg Documented by: [id number] Polyethylene Glycol (Polyethylene (Miralax) 17 Gm Pack) 17 gm PO QAM [facility] Stop: 08/04/21 08:59 Last Admin: 07/31/21 09:29 Dose: Not Given Documented by: [id number] Admin: 07/30/21 09:45 Dose: Not Given Documented by: [id number] Admin: 07/29/21 08:49 Dose: Not Given Documented by: [id number] Admin: 07/28/21 09:03 Dose: 17 gm Documented by: [id number] Admin: 07/27/21 09:16 Dose: 17 gm Documented by: [id number] Admin: 07/26/21 08:54 Dose: 17 gm Documented by: [id number] Admin: 07/25/21 09:14 Dose: 17 gm Documented by: [id number] Admin: 07/24/21 09:12 Dose: 17 gm Documented by: [id number] Admin: 07/23/21 08:52 Dose: 17 gm Documented by: [id number] Admin: 07/22/21 09:45 Dose: 17 gm Documented by: [id number] Admin: 07/21/21 09:20 Dose: 17 gm Documented by: [id number] Admin: 07/20/21 10:17 Dose: 17 gm Documented by: [id number] Admin: 07/19/21 09:07 Dose: 17 gm Documented by: [id number] Admin: 07/18/21 09:28 Dose: Not Given Documented by: [id number] Admin: 07/17/21 09:31 Dose: 17 gm Documented by: [id number] Admin: 07/16/21 08:10 Dose: 17 gm Documented by: [id number] Admin: 07/15/21 09:01 Dose: 17 gm Documented by: [id number] Admin: 07/14/21 09:58 Dose: 17 gm Documented by: [id number] Admin: 07/13/21 08:59 Dose: Not Given Documented by: [id number] Admin: 07/12/21 08:41 Dose: 17 gm Documented by: [id number] Admin: 07/11/21 10:00 Dose: 17 gm Documented by: [id number] Admin: 07/10/21 08:39 Dose: 17 gm Documented by: [id number] Admin: 07/09/21 08:35 Dose: 17 gm Documented by: [id number] Admin: 07/08/21 08:50 Dose: 17 gm Documented by: [id number] Admin: 07/07/21 08:54 Dose: 17 gm Documented by: [id number] Admin: 07/06/21 08:58 Dose: 17 gm Documented by: [id number] Admin: 07/05/21 08:14 Dose: 17 gm Documented by: [id number] Sennosides (Senna 8.6 Mg Tab) 8.6 mg PO DAILY PRN PRN Reason: Constipation Stop: 08/04/21 06:04 Last Admin: 07/31/21 09:21 Dose: 8.6 mg Documented by: [id number] Admin: 07/23/21 08:40 Dose: 8.6 mg Documented by: [id number] Admin: 07/14/21 08:45 Dose: 8.6 mg Documented by: [id number] Admin: 07/12/21 08:28 Dose: 8.6 mg Documented by: [id number] Admin: 07/06/21 08:52 Dose: 8.6 mg Documented by: [id number] Admin: 07/05/21 20:08 Dose: 8.6 mg Documented by: [id number] Tamsulosin HCl (Tamsulosin Hcl 0.4 Mg Cap) 0.4 mg PO QAM [facility] Stop: 08/04/21 08:59 Last Admin: 07/31/21 09:23 Dose: 0.4 mg Documented by: [id number] Admin: 07/30/21 09:09 Dose: 0.4 mg Documented by: [id number] Admin: 07/29/21 08:46 Dose: 0.4 mg Documented by: [id number] Admin: 07/28/21 08:50 Dose: 0.4 mg Documented by: [id number] Admin: 07/27/21 09:17 Dose: 0.4 mg Documented by: [id number] Admin: 07/26/21 09:01 Dose: 0.4 mg Documented by: [id number] Admin: 07/25/21 09:17 Dose: 0.4 mg Documented by: [id number] Admin: 07/24/21 09:07 Dose: 0.4 mg Documented by: [id number] Admin: 07/23/21 08:42 Dose: 0.4 mg Documented by: [id number] Admin: 07/22/21 09:44 Dose: 0.4 mg Documented by: [id number] Admin: 07/21/21 09:09 Dose: 0.4 mg Documented by: [id number] Admin: 07/20/21 09:58 Dose: 0.4 mg Documented by: [id number] Admin: 07/19/21 09:07 Dose: 0.4 mg Documented by: [id number] Admin: 07/18/21 09:31 Dose: 0.4 mg Documented by: [id number] Admin: 07/17/21 09:17 Dose: 0.4 mg Documented by: [id number] Admin: 07/16/21 08:10 Dose: 0.4 mg Documented by: [id number] Admin: 07/15/21 09:03 Dose: 0.4 mg Documented by: [id number] Admin: 07/14/21 08:42 Dose: 0.4 mg Documented by: [id number] Admin: 07/13/21 08:59 Dose: 0.4 mg Documented by: [id number] Admin: 07/12/21 08:30 Dose: 0.4 mg Documented by: [id number] Admin: 07/11/21 08:48 Dose: 0.4 mg Documented by: [id number] Admin: 07/10/21 08:39 Dose: 0.4 mg Documented by: [id number] Admin: 07/09/21 08:37 Dose: 0.4 mg Documented by: [id number] Admin: 07/08/21 08:42 Dose: 0.4 mg Documented by: [id number] Admin: 07/07/21 08:46 Dose: 0.4 mg Documented by: [id number] Admin: 07/06/21 08:49 Dose: 0.4 mg Documented by: [id number] Admin: 07/05/21 08:16 Dose: 0.4 mg Documented by: [id number] Tramadol HCl (Tramadol Hcl 50 Mg Tablet) 100 mg PO Q6 PRN PRN Reason: Pain Stop: 08/04/21 06:04 Last Admin: 07/31/21 09:19 Dose: 100 mg Documented by: [id number] Admin: 07/31/21 03:21 Dose: 100 mg Documented by: [id number] Admin: 07/30/21 19:46 Dose: 100 mg Documented by: [id number] Admin: 07/30/21 13:00 Dose: 100 mg Documented by: [id number] Admin: 07/30/21 06:32 Dose: 100 mg Documented by: [id number] Admin: 07/30/21 00:40 Dose: 100 mg Documented by: [id number] Admin: 07/29/21 18:28 Dose: 100 mg Documented by: [id number] Admin: 07/29/21 12:40 Dose: 100 mg Documented by: [id number] Admin: 07/29/21 06:18 Dose: 100 mg Documented by: [id number] Admin: 07/29/21 00:18 Dose: 100 mg Documented by: [id number] Admin: 07/28/21 18:05 Dose: 100 mg Documented by: [id number] Admin: 07/28/21 11:31 Dose: 100 mg Documented by: [id number] Admin: 07/28/21 03:55 Dose: 100 mg Documented by: [id number] Admin: 07/27/21 21:51 Dose: 100 mg Documented by: [id number] Admin: 07/27/21 15:45 Dose: 100 mg Documented by: [id number] Admin: 07/27/21 09:49 Dose: 100 mg Documented by: [id number] Admin: 07/27/21 03:47 Dose: 100 mg Documented by: [id number] Admin: 07/26/21 21:50 Dose: 100 mg Documented by: [id number] Admin: 07/26/21 15:50 Dose: 100 mg Documented by: [id number] Admin: 07/26/21 09:42 Dose: 100 mg Documented by: [id number] Admin: 07/26/21 03:43 Dose: 100 mg Documented by: [id number] Admin: 07/25/21 21:45 Dose: 100 mg Documented by: [id number] Admin: 07/25/21 15:49 Dose: 100 mg Documented by: [id number] Admin: 07/25/21 09:41 Dose: 100 mg Documented by: [id number] Admin: 07/25/21 03:40 Dose: 100 mg Documented by: [id number] Admin: 07/24/21 21:19 Dose: 100 mg Documented by: [id number] Admin: 07/24/21 15:01 Dose: 100 mg Documented by: [id number] Admin: 07/24/21 08:59 Dose: 100 mg Documented by: [id number] Admin: 07/24/21 02:41 Dose: 100 mg Documented by: [id number] Admin: 07/23/21 20:40 Dose: 100 mg Documented by: [id number] Admin: 07/23/21 14:38 Dose: 100 mg Documented by: [id number] Admin: 07/23/21 08:38 Dose: 100 mg Documented by: [id number] Admin: 07/23/21 02:33 Dose: 100 mg Documented by: [id number] Admin: 07/22/21 20:31 Dose: 100 mg Documented by: [id number] Admin: 07/22/21 14:15 Dose: 100 mg Documented by: [id number] Admin: 07/22/21 08:16 Dose: 100 mg Documented by: [id number] Admin: 07/22/21 02:02 Dose: 100 mg Documented by: [id number] Admin: 07/21/21 19:51 Dose: 100 mg Documented by: [id number] Admin: 07/21/21 13:44 Dose: 100 mg Documented by: [id number] Admin: 07/21/21 07:44 Dose: 100 mg Documented by: [id number] Admin: 07/21/21 01:38 Dose: 100 mg Documented by: [id number] Admin: 07/20/21 19:33 Dose: 100 mg Documented by: [id number] Admin: 07/20/21 13:37 Dose: 100 mg Documented by: [id number] Admin: 07/20/21 07:35 Dose: 100 mg Documented by: [id number] Admin: 07/19/21 23:35 Dose: 100 mg Documented by: [id number] Admin: 07/19/21 17:29 Dose: 100 mg Documented by: [id number] Admin: 07/19/21 11:25 Dose: 100 mg Documented by: [id number] Admin: 07/19/21 05:12 Dose: 100 mg Documented by: [id number] Admin: 07/18/21 21:47 Dose: 100 mg Documented by: [id number] Admin: 07/18/21 15:47 Dose: 100 mg Documented by: [id number] Admin: 07/18/21 09:41 Dose: 100 mg Documented by: [id number] Admin: 07/18/21 04:38 Dose: 100 mg Documented by: [id number] Admin: 07/17/21 21:51 Dose: 100 mg Documented by: [id number] Admin: 07/17/21 15:53 Dose: 100 mg Documented by: [id number] Admin: 07/17/21 09:53 Dose: 100 mg Documented by: [id number] Admin: 07/16/21 21:26 Dose: 100 mg Documented by: [id number] Admin: 07/16/21 14:49 Dose: 100 mg Documented by: [id number] Admin: 07/16/21 08:20 Dose: 100 mg Documented by: [id number] Admin: 07/16/21 01:47 Dose: 100 mg Documented by: [id number] Admin: 07/15/21 19:43 Dose: 100 mg Documented by: [id number] Admin: 07/15/21 13:41 Dose: 100 mg Documented by: [id number] Admin: 07/15/21 07:42 Dose: 100 mg Documented by: [id number] Admin: 07/15/21 00:52 Dose: 100 mg Documented by: [id number] Admin: 07/14/21 18:32 Dose: 100 mg Documented by: [id number] Admin: 07/14/21 12:29 Dose: 100 mg Documented by: [id number] Admin: 07/14/21 06:30 Dose: 100 mg Documented by: [id number] Admin: 07/14/21 00:30 Dose: 100 mg Documented by: [id number] Admin: 07/13/21 18:32 Dose: 100 mg Documented by: [id number] Admin: 07/13/21 12:29 Dose: 100 mg Documented by: [id number] Admin: 07/13/21 06:12 Dose: 100 mg Documented by: [id number] Admin: 07/13/21 00:01 Dose: 100 mg Documented by: [id number] Admin: 07/12/21 18:01 Dose: 100 mg Documented by: [id number] Admin: 07/12/21 11:15 Dose: 100 mg Documented by: [id number] Admin: 07/12/21 05:00 Dose: 100 mg Documented by: [id number] Admin: 07/11/21 22:53 Dose: 100 mg Documented by: [id number] Admin: 07/11/21 16:17 Dose: 100 mg Documented by: [id number] Admin: 07/11/21 10:06 Dose: 100 mg Documented by: [id number] Admin: 07/11/21 03:47 Dose: 100 mg Documented by: [id number] Admin: 07/10/21 21:37 Dose: 100 mg Documented by: [id number] Admin: 07/10/21 15:25 Dose: 100 mg Documented by: [id number] Admin: 07/10/21 09:14 Dose: 100 mg Documented by: [id number] Admin: 07/10/21 03:20 Dose: 100 mg Documented by: [id number] Admin: 07/09/21 21:26 Dose: 100 mg Documented by: [id number] Admin: 07/09/21 15:38 Dose: 100 mg Documented by: [id number] Admin: 07/09/21 09:29 Dose: 100 mg Documented by: [id number] Admin: 07/09/21 03:21 Dose: 100 mg Documented by: [id number] Admin: 07/08/21 20:39 Dose: 100 mg Documented by: [id number] Admin: 07/08/21 14:13 Dose: 100 mg Documented by: [id number] Admin: 07/08/21 06:40 Dose: 100 mg Documented by: [id number] Admin: 07/08/21 00:36 Dose: 100 mg Documented by: [id number] Admin: 07/07/21 18:29 Dose: 100 mg Documented by: [id number] Admin: 07/07/21 12:09 Dose: 100 mg Documented by: [id number] Admin: 07/07/21 06:16 Dose: 100 mg Documented by: [id number] Admin: 07/06/21 23:00 Dose: 100 mg Documented by: [id number] Admin: 07/06/21 16:58 Dose: 100 mg Documented by: [id number] Admin: 07/06/21 11:33 Dose: 100 mg Documented by: [id number] Umeclidinium Nesque[place]oning (Umeclidinium [place] 62.5mcg/Blister 7 Puffs/Inhaler) 1 puffs [facility] [place] Stop: 08/04/21 08:59 Last Admin: 07/31/21 09:26 Dose: 1 puffs Documented by: [id number] Admin: 07/30/21 09:11 Dose: 1 puffs Documented by: [id number] Admin: 07/29/21 08:47 Dose: 1 puffs Documented by: [id number] Admin: 07/28/21 08:54 Dose: 1 puffs Documented by: [id number] Admin: 07/27/21 09:21 Dose: 1 puffs Documented by: [id number] Admin: 07/26/21 08:54 Dose: 1 puffs Documented by: [id number] Admin: 07/25/21 09:19 Dose: 1 puffs Documented by: [id number] Admin: 07/24/21 09:08 Dose: 1 puffs Documented by: [id number] Admin: 07/23/21 08:45 Dose: 1 puffs Documented by: [id number] Admin: 07/22/21 09:55 Dose: 1 puffs Documented by: [id number] Admin: 07/21/21 09:04 Dose: 1 puffs Documented by: [id number] Admin: 07/20/21 09:52 Dose: 1 puffs Documented by: [id number] Admin: 07/19/21 10:37 Dose: 1 puffs Documented by: [id number] Admin: 07/18/21 09:31 Dose: 1 puffs Documented by: [id number] Admin: 07/17/21 09:17 Dose: 1 puffs Documented by: [id number] Admin: 07/16/21 08:12 Dose: 1 puffs Documented by: [id number] Admin: 07/15/21 09:03 Dose: 1 puffs Documented by: [id number] Admin: 07/14/21 08:48 Dose: 1 puffs Documented by: [id number] Admin: 07/13/21 09:01 Dose: 1 puffs Documented by: [id number] Admin: 07/12/21 08:32 Dose: 1 puffs Documented by: [id number] Admin: 07/11/21 09:04 Dose: 1 puffs Documented by: [id number] Admin: 07/10/21 08:42 Dose: 1 puffs Documented by: [id number] Admin: 07/09/21 08:42 Dose: 1 puffs Documented by: [id number] Admin: 07/08/21 08:51 Dose: 1 puffs Documented by: [id number] Admin: 07/07/21 08:47 Dose: 1 puffs Documented by: [id number] Admin: 07/06/21 08:58 Dose: 1 puffs Documented by: [id number] Admin: 07/05/21 08:18 Dose: 1 puffs Documented by: [id number] Warfarin Sodium (Warfarin Sod 10 Mg Tab) 10 mg PO DAILY@1600 [facility] Stop: 08/18/21 15:59 Last Admin: 07/29/21 16:20 Dose: 10 mg Documented by: [id number] Admin: 07/28/21 18:08 Dose: 10 mg Documented by: [id number] Admin: 07/27/21 15:44 Dose: 10 mg Documented by: [id number] Admin: 07/26/21 15:49 Dose: 10 mg Documented by: [id number] Admin: 07/25/21 15:56 Dose: 10 mg Documented by: [id number] Admin: 07/24/21 16:26 Dose: 10 mg Documented by: [id number] Admin: 07/23/21 16:31 Dose: 10 mg Documented by: [id number] Admin: 07/22/21 16:49 Dose: 10 mg Documented by: [id number] Admin: 07/21/21 16:34 Dose: 10 mg Documented by: [id number] Admin: 07/20/21 16:28 Dose: 10 mg Documented by: [id number] Admin: 07/19/21 15:28 Dose: 10 mg Documented by: [id number] Discontinued Medications Acetaminophen (Acetaminophen 1000 Mg/100 Ml Iv) 1,000 mg IV NOW STA Stop: 07/30/21 22:50 Last Admin: 07/31/21 00:20 Dose: 1,000 mg Documented by: [id number] Albuterol (Albut/Ipratrop 3mg/0.5mg Neb 3 Ml Vial) 3 ml NEB NOW STA Stop: 07/05/21 03:58 Last Admin: 07/05/21 04:39 Dose: 3 ml Documented by: [id number] Albuterol (Albut/Ipratrop 3mg/0.5mg Neb 3 Ml Vial) 3 ml NEB TIDR EMPERATRIZ Stop: 08/04/21 08:59 Last Admin: 07/09/21 07:14 Dose: 3 ml Documented by: [id number] Admin: 07/08/21 18:10 Dose: 3 ml Documented by: [id number] Admin: 07/08/21 13:36 Dose: 3 ml Documented by: [id number] Admin: 07/08/21 07:05 Dose: 3 ml Documented by: [id number] Admin: 07/07/21 17:57 Dose: 3 ml Documented by: [id number] Admin: 07/07/21 12:56 Dose: 3 ml Documented by: [id number] Admin: 07/07/21 07:21 Dose: 3 ml Documented by: [id number] Admin: 07/06/21 19:31 Dose: Not Given Documented by: [id number] Admin: 07/06/21 13:41 Dose: 3 ml Documented by: [id number] Admin: 07/06/21 07:35 Dose: 3 ml Documented by: [id number] Admin: 07/05/21 19:21 Dose: 3 ml Documented by: [id number] Admin: 07/05/21 12:51 Dose: Not Given Documented by: [id number] Admin: 07/05/21 07:11 Dose: 3 ml Documented by: [id number] Albuterol (Albut/Ipratrop 3mg/0.5mg Neb 3 Ml Vial) 3 ml NEB NOW ONE Stop: 07/26/21 11:20 Last Admin: 07/26/21 12:30 Dose: 3 ml Documented by: [id number] Buprenorphine HCl (Buprenorphine Hcl 8 Mg Subl) 8 mg SL NOW STA Stop: 07/10/21 22:11 Last Admin: 07/10/21 22:22 Dose: 8 mg Documented by: [id number] Enoxaparin Sodium (Enoxaparin Inj 40 Mg/0.4 Ml Syr) 40 mg SQ Q12H EMPERATRIZ Stop: 08/09/21 09:29 Last Admin: 07/29/21 21:01 Dose: 40 mg Documented by: [id number] Admin: 07/29/21 08:49 Dose: 40 mg Documented by: [id number] Admin: 07/28/21 21:22 Dose: 40 mg Documented by: [id number] Admin: 07/28/21 08:54 Dose: 40 mg Documented by: [id number] Admin: 07/27/21 21:54 Dose: 40 mg Documented by: [id number] Admin: 07/27/21 09:21 Dose: 40 mg Documented by: [id number] Admin: 07/26/21 21:12 Dose: 40 mg Documented by: [id number] Admin: 07/26/21 09:08 Dose: 40 mg Documented by: [id number] Admin: 07/25/21 21:31 Dose: 40 mg Documented by: [id number] Admin: 07/25/21 09:52 Dose: 40 mg Documented by: [id number] Admin: 07/24/21 21:34 Dose: 40 mg Documented by: [id number] Admin: 07/24/21 09:06 Dose: 40 mg Documented by: [id number] Admin: 07/23/21 21:41 Dose: 40 mg Documented by: [id number] Admin: 07/23/21 08:47 Dose: 40 mg Documented by: [id number] Admin: 07/22/21 21:44 Dose: 40 mg Documented by: [id number] Admin: 07/22/21 09:55 Dose: 40 mg Documented by: [id number] Admin: 07/21/21 21:31 Dose: 40 mg Documented by: [id number] Admin: 07/21/21 09:13 Dose: 40 mg Documented by: [id number] Admin: 07/20/21 20:40 Dose: 40 mg Documented by: [id number] Admin: 07/20/21 10:07 Dose: 40 mg Documented by: [id number] Admin: 07/19/21 21:16 Dose: 40 mg Documented by: [id number] Admin: 07/19/21 09:15 Dose: 40 mg Documented by: [id number] Admin: 07/18/21 21:12 Dose: 40 mg Documented by: [id number] Admin: 07/18/21 09:32 Dose: 40 mg Documented by: [id number] Admin: 07/17/21 20:45 Dose: 40 mg Documented by: [id number] Admin: 07/17/21 09:16 Dose: 40 mg Documented by: [id number] Admin: 07/16/21 20:47 Dose: 40 mg Documented by: [id number] Admin: 07/16/21 08:11 Dose: 40 mg Documented by: [id number] Admin: 07/15/21 22:44 Dose: 40 mg Documented by: [id number] Admin: 07/15/21 09:04 Dose: 40 mg Documented by: [id number] Admin: 07/14/21 21:19 Dose: 40 mg Documented by: [id number] Admin: 07/14/21 08:46 Dose: 40 mg Documented by: [id number] Admin: 07/13/21 20:22 Dose: 40 mg Documented by: [id number] Admin: 07/13/21 09:00 Dose: 40 mg Documented by: [id number] Admin: 07/12/21 21:06 Dose: 40 mg Documented by: [id number] Admin: 07/12/21 11:16 Dose: 40 mg Documented by: [id number] Admin: 07/11/21 21:05 Dose: 40 mg Documented by: [id number] Admin: 07/11/21 09:05 Dose: 40 mg Documented by: [id number] Admin: 07/10/21 20:05 Dose: 40 mg Documented by: [id number] Admin: 07/10/21 11:25 Dose: 40 mg Documented by: [id number] Furosemide (Furosemide 40 Mg/4 Ml Vial) 40 mg IV NOW STA Stop: 07/05/21 03:56 Last Admin: 07/05/21 04:33 Dose: 40 mg Documented by: [id number] Furosemide (Furosemide 40 Mg Tab) 40 mg PO BID17 EMPERATRIZ Stop: 08/12/21 16:59 Last Admin: 07/16/21 17:28 Dose: Not Given Documented by: [id number] Admin: 07/16/21 08:10 Dose: 40 mg Documented by: [id number] Admin: 07/15/21 16:01 Dose: 40 mg Documented by: [id number] Admin: 07/15/21 08:58 Dose: 40 mg Documented by: [id number] Admin: 07/14/21 16:09 Dose: 40 mg Documented by: [id number] Admin: 07/14/21 08:44 Dose: 40 mg Documented by: [id number] Admin: 07/13/21 17:17 Dose: 40 mg Documented by: [id number] Furosemide (Furosemide 40 Mg/4 Ml Vial) 40 mg IV BID EMPERATRIZ Stop: 08/15/21 20:59 Last Admin: 07/26/21 09:18 Dose: 40 mg Documented by: [id number] Admin: 07/25/21 21:42 Dose: 40 mg Documented by: [id number] Admin: 07/25/21 09:46 Dose: 40 mg Documented by: [id number] Admin: 07/24/21 21:25 Dose: 40 mg Documented by: [id number] Admin: 07/24/21 09:06 Dose: 40 mg Documented by: [id number] Admin: 07/23/21 21:35 Dose: 40 mg Documented by: [id number] Admin: 07/23/21 09:01 Dose: 40 mg Documented by: [id number] Admin: 07/22/21 21:51 Dose: 40 mg Documented by: [id number] Admin: 07/22/21 09:46 Dose: 40 mg Documented by: [id number] Admin: 07/21/21 21:52 Dose: 40 mg Documented by: [id number] Admin: 07/21/21 08:57 Dose: 40 mg Documented by: [id number] Admin: 07/20/21 21:50 Dose: 40 mg Documented by: [id number] Admin: 07/20/21 10:20 Dose: 40 mg Documented by: [id number] Admin: 07/19/21 21:12 Dose: 40 mg Documented by: [id number] Admin: 07/19/21 09:22 Dose: 40 mg Documented by: [id number] Admin: 07/18/21 21:35 Dose: 40 mg Documented by: [id number] Admin: 07/18/21 09:41 Dose: 40 mg Documented by: [id number] Admin: 07/17/21 20:38 Dose: 40 mg Documented by: [id number] Admin: 07/17/21 09:31 Dose: 40 mg Documented by: [id number] Admin: 07/16/21 20:24 Dose: 40 mg Documented by: [id number] Furosemide (Furosemide 40 Mg/4 Ml Vial) 40 mg IV ONE ONE Stop: 07/25/21 15:11 Last Admin: 07/25/21 15:57 Dose: 40 mg Documented by: [id number] Guaifenesin/Dextromethorphan (Guaifenesin/Dextrom Syrup 200mg/20mg 10ml Udc) 10 ml PO Q6H PRN PRN Reason: Cough Stop: 08/07/21 16:40 Last Admin: 07/09/21 03:22 Dose: 10 ml Documented by: [id number] Hydromorphone HCl (Hydromorphone Inj 0.5 Mg/0.5 Ml Syr) 0.5 mg IV NOW STA Stop: 07/19/21 06:17 Last Admin: 07/19/21 06:26 Dose: 0.5 mg Documented by: [id number] Furosemide 40 mg/ Syringe 4 mls @ 4 mls/min IV BID17 EMPERATRIZ Stop: 08/04/21 08:59 Last Admin: 07/13/21 09:00 Dose: 4 mls/min Documented by: [id number] Admin: 07/12/21 17:06 Dose: 4 mls/min Documented by: [id number] Admin: 07/12/21 08:36 Dose: 4 mls/min Documented by: [id number] Admin: 07/11/21 16:08 Dose: 4 mls/min Documented by: [id number] Admin: 07/11/21 08:43 Dose: 4 mls/min Documented by: [id number] Admin: 07/10/21 16:30 Dose: 4 mls/min Documented by: [id number] Admin: 07/10/21 08:40 Dose: 4 mls/min Documented by: [id number] Admin: 07/09/21 19:05 Dose: 4 mls/min Documented by: [id number] Admin: 07/09/21 08:33 Dose: 4 mls/min Documented by: [id number] Admin: 07/08/21 17:37 Dose: 4 mls/min Documented by: [id number] Admin: 07/08/21 08:46 Dose: 4 mls/min Documented by: [id number] Admin: 07/07/21 17:35 Dose: 4 mls/min Documented by: [id number] Admin: 07/07/21 08:44 Dose: 4 mls/min Documented by: [id number] Admin: 07/06/21 17:29 Dose: 4 mls/min Documented by: [id number] Admin: 07/06/21 08:49 Dose: 4 mls/min Documented by: [id number] Admin: 07/05/21 20:27 Dose: 4 mls/min Documented by: [id number] Admin: 07/05/21 08:19 Dose: 4 mls/min Documented by: [id number] Piperacillin Sod/Tazobactam (Sod 4.5 gm/ Dextrose) 120 mls @ 30 mls/hr IV Q8H EMPERATRIZ; Protocol Stop: 07/17/21 00:00 Last Infusion: 07/10/21 12:51 Dose: 0 mls/hr Documented by: [id number] Admin: 07/10/21 08:51 Dose: 30 mls/hr Documented by: [id number] Infusion: 07/10/21 05:52 Dose: 0 mls/hr Documented by: [id number] Admin: 07/09/21 23:54 Dose: 30 mls/hr Documented by: [id number] Infusion: 07/09/21 20:55 Dose: 0 mls/hr Documented by: [id number] Admin: 07/09/21 16:53 Dose: 30 mls/hr Documented by: [id number] Infusion: 07/09/21 12:55 Dose: 0 mls/hr Documented by: [id number] Admin: 07/09/21 08:33 Dose: 30 mls/hr Documented by: [id number] Infusion: 07/09/21 04:24 Dose: 0 mls/hr Documented by: [id number] Admin: 07/09/21 00:11 Dose: 30 mls/hr Documented by: [id number] Infusion: 07/08/21 21:31 Dose: 0 mls/hr Documented by: [id number] Admin: 07/08/21 16:35 Dose: 30 mls/hr Documented by: [id number] Infusion: 07/08/21 16:35 Dose: 30 mls/hr Documented by: [id number] Infusion: 07/08/21 12:30 Dose: 0 mls/hr Documented by: [id number] Admin: 07/08/21 08:36 Dose: 30 mls/hr Documented by: [id number] Infusion: 07/08/21 04:40 Dose: 0 mls/hr Documented by: [id number] Admin: 07/08/21 00:35 Dose: 30 mls/hr Documented by: [id number] Infusion: 07/07/21 21:54 Dose: 0 mls/hr Documented by: [id number] Admin: 07/07/21 17:34 Dose: 30 mls/hr Documented by: [id number] Infusion: 07/07/21 12:52 Dose: 0 mls/hr Documented by: [id number] Admin: 07/07/21 08:41 Dose: 30 mls/hr Documented by: [id number] Infusion: 07/07/21 04:05 Dose: 0 mls/hr Documented by: [id number] Admin: 07/07/21 00:00 Dose: 30 mls/hr Documented by: [id number] Piperacillin Sod/Tazobactam (Sod 4.5 gm/ Dextrose) 120 mls @ 200 mls/hr IV NOW ONE; Protocol Stop: 07/06/21 19:05 Last Infusion: 07/06/21 22:20 Dose: 0 mls/hr Documented by: [id number] Admin: 07/06/21 21:36 Dose: 200 mls/hr Documented by: [id number] Ampicillin Sodium 2,000 mg/ (Sodium Chloride) 100 mls @ 200 mls/hr IV Q6 EMPERATRIZ; Protocol Stop: 07/20/21 17:59 Last Infusion: 07/13/21 21:20 Dose: 0 mls/hr Documented by: [id number] Admin: 07/13/21 17:16 Dose: 200 mls/hr Documented by: [id number] Infusion: 07/13/21 13:26 Dose: 0 mls/hr Documented by: [id number] Admin: 07/13/21 12:29 Dose: 200 mls/hr Documented by: [id number] Infusion: 07/13/21 06:45 Dose: 0 mls/hr Documented by: [id number] Admin: 07/13/21 06:05 Dose: 200 mls/hr Documented by: [id number] Infusion: 07/13/21 00:48 Dose: 0 mls/hr Documented by: [id number] Admin: 07/13/21 00:00 Dose: 200 mls/hr Documented by: [id number] Infusion: 07/12/21 21:44 Dose: 0 mls/hr Documented by: [id number] Admin: 07/12/21 17:07 Dose: 20 mls/hr Documented by: [id number] Infusion: 07/12/21 13:08 Dose: 0 mls/hr Documented by: [id number] Admin: 07/12/21 12:19 Dose: 200 mls/hr Documented by: [id number] Infusion: 07/12/21 07:14 Dose: 0 mls/hr Documented by: [id number] Admin: 07/12/21 06:39 Dose: 200 mls/hr Documented by: [id number] Infusion: 07/12/21 00:56 Dose: 0 mls/hr Documented by: [id number] Admin: 07/12/21 00:18 Dose: 200 mls/hr Documented by: [id number] Infusion: 07/11/21 17:41 Dose: 0 mls/hr Documented by: [id number] Admin: 07/11/21 17:00 Dose: 200 mls/hr Documented by: [id number] Infusion: 07/11/21 12:58 Dose: 0 mls/hr Documented by: [id number] Admin: 07/11/21 12:15 Dose: 200 mls/hr Documented by: [id number] Infusion: 07/11/21 07:52 Dose: 0 mls/hr Documented by: [id number] Admin: 07/11/21 06:27 Dose: 100 mls/hr Documented by: [id number] Infusion: 07/11/21 01:05 Dose: 0 mls/hr Documented by: [id number] Admin: 07/10/21 23:38 Dose: 100 mls/hr Documented by: [id number] Infusion: 07/10/21 17:55 Dose: 0 mls/hr Documented by: [id number] Admin: 07/10/21 17:13 Dose: 200 mls/hr Documented by: [id number] Ampicillin Sodium 2,000 mg/ (Sodium Chloride) 100 mls @ 200 mls/hr IV Q6H EMPERATRIZ; Protocol Stop: 07/20/21 17:59 Last Infusion: 07/16/21 08:54 Dose: 0 mls/hr Documented by: [id number] Admin: 07/16/21 08:10 Dose: 200 mls/hr Documented by: [id number] Infusion: 07/16/21 01:25 Dose: 0 mls/hr Documented by: [id number] Admin: 07/16/21 00:54 Dose: 200 mls/hr Documented by: [id number] Infusion: 07/15/21 20:19 Dose: 0 mls/hr Documented by: [id number] Admin: 07/15/21 19:43 Dose: 200 mls/hr Documented by: [id number] Infusion: 07/15/21 14:06 Dose: 200 mls/hr Documented by: [id number] Admin: 07/15/21 13:27 Dose: 200 mls/hr Documented by: [id number] Infusion: 07/15/21 11:34 Dose: 200 mls/hr Documented by: [id number] Admin: 07/15/21 08:23 Dose: 200 mls/hr Documented by: [id number] Infusion: 07/15/21 01:34 Dose: 0 mls/hr Documented by: [id number] Admin: 07/15/21 01:00 Dose: 200 mls/hr Documented by: [id number] Infusion: 07/14/21 21:38 Dose: 0 mls/hr Documented by: [id number] Admin: 07/14/21 20:58 Dose: 200 mls/hr Documented by: [id number] Infusion: 07/14/21 15:22 Dose: 0 mls/hr Documented by: [id number] Admin: 07/14/21 14:09 Dose: 200 mls/hr Documented by: [id number] Infusion: 07/14/21 09:42 Dose: 0 mls/hr Documented by: [id number] Admin: 07/14/21 08:40 Dose: 200 mls/hr Documented by: [id number] Infusion: 07/14/21 01:30 Dose: 0 mls/hr Documented by: [id number] Admin: 07/14/21 01:00 Dose: 200 mls/hr Documented by: [id number] Acetaminophen (Ofirmev) 1,000 mg in 100 mls @ 400 mls/hr IV NOW STA Stop: 07/30/21 12:04 Last Infusion: 07/30/21 16:46 Dose: 0 mls/hr Documented by: [id number] Admin: 07/30/21 14:54 Dose: 400 mls/hr Documented by: [id number] Ketorolac Tromethamine (Ketorolac Tromethamine 15 Mg/Ml Vial) 15 mg IV NOW ONE Stop: 07/27/21 19:51 Last Admin: 07/27/21 20:38 Dose: 15 mg Documented by: [id number] Ketorolac Tromethamine (Ketorolac Tromethamine 15 Mg/Ml Vial) 15 mg IV NOW ONE Stop: 07/28/21 13:59 Last Admin: 07/28/21 14:21 Dose: 15 mg Documented by: [id number] Ketorolac Tromethamine (Ketorolac Tromethamine 15 Mg/Ml Vial) 15 mg IV NOW ONE Stop: 07/29/21 14:18 Last Admin: 07/29/21 15:04 Dose: Not Given Documented by: [id number] Ketorolac Tromethamine (Ketorolac Tromethamine 15 Mg/Ml Vial) Confirm Administered Dose 15 mg .ROUTE .STK-MED ONE Stop: 07/29/21 14:20 Last Admin: 07/29/21 14:21 Dose: 15 mg Documented by: [id number] Levofloxacin (Levofloxacin 750 Mg Tab) 750 mg PO DAILY [facility]; Protocol Stop: 07/20/21 15:59 Last Admin: 07/12/21 08:31 Dose: 750 mg Documented by: [id number] Admin: 07/11/21 08:52 Dose: 750 mg Documented by: [id number] Admin: 07/10/21 16:28 Dose: 750 mg Documented by: [id number] Methylprednisolone (Methylprednisolone 125 Mg/2 Ml Vial) 125 mg IV NOW STA Stop: 07/05/21 03:58 Last Admin: 07/05/21 04:31 Dose: 125 mg Documented by: [id number] Morphine Sulfate (Morphine Sulfate 4 Mg/Ml 1 Ml Carp\Vial) 4 mg IV NOW STA Stop: 07/29/21 14:37 Last Admin: 07/29/21 15:16 Dose: 4 mg Documented by: [id number] Morphine Sulfate (Morphine Sulfate 4 Mg/Ml 1 Ml Carp\Vial) 4 mg IV NOW STA Stop: 07/30/21 10:00 Last Admin: 07/30/21 10:15 Dose: 4 mg Documented by: [id number] Morphine Sulfate (Morphine Sulfate 4 Mg/Ml 1 Ml Carp\Vial) Confirm Administered Dose 4 mg .ROUTE .STK-MED ONE Stop: 07/30/21 10:08 Last Admin: 07/30/21 10:15 Dose: Not Given Documented by: [id number] Morphine Sulfate (Morphine Sulfate 4 Mg/Ml 1 Ml Carp\Vial) 4 mg IV NOW STA Stop: 07/30/21 10:15 Last Admin: 07/30/21 10:28 Dose: Not Given Documented by: [id number] Potassium Chloride (Potassium Chloride Crtab 20 Meq Tabcr) 20 meq PO BID EMPERATRIZ Stop: 08/04/21 08:59 Last Admin: 07/30/21 09:09 Dose: 20 meq Documented by: [id number] Admin: 07/29/21 21:01 Dose: 20 meq Documented by: [id number] Admin: 07/29/21 08:46 Dose: 20 meq Documented by: [id number] Admin: 07/28/21 20:43 Dose: 20 meq Documented by: [id number] Admin: 07/28/21 08:50 Dose: 20 meq Documented by: [id number] Admin: 07/27/21 21:53 Dose: 20 meq Documented by: [id number] Admin: 07/27/21 09:17 Dose: 20 meq Documented by: [id number] Admin: 07/26/21 21:11 Dose: 20 meq Documented by: [id number] Admin: 07/26/21 09:01 Dose: 20 meq Documented by: [id number] Admin: 07/25/21 21:32 Dose: 20 meq Documented by: [id number] Admin: 07/25/21 09:18 Dose: 20 meq Documented by: [id number] Admin: 07/24/21 21:27 Dose: 20 meq Documented by: [id number] Admin: 07/24/21 09:04 Dose: 20 meq Documented by: [id number] Admin: 07/23/21 21:39 Dose: 20 meq Documented by: [id number] Admin: 07/23/21 08:41 Dose: 20 meq Documented by: [id number] Admin: 07/22/21 21:42 Dose: 20 meq Documented by: [id number] Admin: 07/22/21 09:44 Dose: 20 meq Documented by: [id number] Admin: 07/21/21 21:30 Dose: 20 meq Documented by: [id number] Admin: 07/21/21 09:08 Dose: 20 meq Documented by: [id number] Admin: 07/20/21 20:34 Dose: 20 meq Documented by: [id number] Admin: 07/20/21 09:58 Dose: 20 meq Documented by: [id number] Admin: 07/19/21 21:17 Dose: 20 meq Documented by: [id number] Admin: 07/19/21 09:07 Dose: 20 meq Documented by: [id number] Admin: 07/18/21 21:35 Dose: 20 meq Documented by: [id number] Admin: 07/18/21 09:42 Dose: 20 meq Documented by: [id number] Admin: 07/17/21 20:38 Dose: 20 meq Documented by: [id number] Admin: 07/17/21 09:31 Dose: 20 meq Documented by: [id number] Admin: 07/16/21 20:24 Dose: 20 meq Documented by: [id number] Admin: 07/16/21 08:12 Dose: 20 meq Documented by: [id number] Admin: 07/15/21 22:43 Dose: 20 meq Documented by: [id number] Admin: 07/15/21 09:01 Dose: 20 meq Documented by: [id number] Admin: 07/14/21 21:17 Dose: 20 meq Documented by: [id number] Admin: 07/14/21 08:44 Dose: 20 meq Documented by: [id number] Admin: 07/13/21 20:22 Dose: 20 meq Documented by: [id number] Admin: 07/13/21 08:58 Dose: 20 meq Documented by: [id number] Admin: 07/12/21 21:06 Dose: 20 meq Documented by: [id number] Admin: 07/12/21 08:32 Dose: 20 meq Documented by: [id number] Admin: 07/11/21 22:08 Dose: 20 meq Documented by: [id number] Admin: 07/11/21 10:00 Dose: 20 meq Documented by: [id number] Admin: 07/10/21 20:12 Dose: 20 meq Documented by: [id number] Admin: 07/10/21 08:39 Dose: 20 meq Documented by: [id number] Admin: 07/09/21 20:07 Dose: 20 meq Documented by: [id number] Admin: 07/09/21 08:35 Dose: 20 meq Documented by: [id number] Admin: 07/08/21 22:02 Dose: 20 meq Documented by: [id number] Admin: 07/08/21 09:00 Dose: 20 meq Documented by: [id number] Admin: 07/07/21 22:01 Dose: 20 meq Documented by: [id number] Admin: 07/07/21 08:55 Dose: 20 meq Documented by: [id number] Admin: 07/06/21 21:40 Dose: 20 meq Documented by: [id number] Admin: 07/06/21 08:55 Dose: 20 meq Documented by: [id number] Admin: 07/05/21 20:20 Dose: 20 meq Documented by: [id number] Admin: 07/05/21 08:14 Dose: 20 meq Documented by: [id number] Spironolactone (Spironolactone 25 Mg Tab) [facility] [place] Stop: 08/04/21 08:59 Last Admin: 07/30/21 09:09 Dose: 25 mg Documented by: [id number] Admin: 07/29/21 08:46 Dose: 25 mg Documented by: [id number] Admin: 07/28/21 08:50 Dose: 25 mg Documented by: [id number] Admin: 07/27/21 09:17 Dose: 25 mg Documented by: [id number] Admin: 07/26/21 09:08 Dose: 25 mg Documented by: [id number] Admin: 07/25/21 09:18 Dose: 25 mg Documented by: [id number] Admin: 07/24/21 09:07 Dose: 25 mg Documented by: [id number] Admin: 07/23/21 08:40 Dose: 25 mg Documented by: [id number] Admin: 07/22/21 09:44 Dose: 25 mg Documented by: [id number] Admin: 07/21/21 09:09 Dose: 25 mg Documented by: [id number] Admin: 07/20/21 09:58 Dose: 25 mg Documented by: [id number] Admin: 07/19/21 09:07 Dose: 25 mg Documented by: [id number] Admin: 07/18/21 09:31 Dose: 25 mg Documented by: [id number] Admin: 07/17/21 09:18 Dose: 25 mg Documented by: [id number] Admin: 07/16/21 08:10 Dose: 25 mg Documented by: [id number] Admin: 07/15/21 09:02 Dose: 25 mg Documented by: [id number] Admin: 07/14/21 08:42 Dose: 25 mg Documented by: [id number] Admin: 07/13/21 08:58 Dose: 25 mg Documented by: [id number] Admin: 07/12/21 08:30 Dose: 25 mg Documented by: [id number] Admin: 07/11/21 08:51 Dose: 25 mg Documented by: [id number] Admin: 07/10/21 08:39 Dose: 25 mg Documented by: [id number] Admin: 07/09/21 08:38 Dose: 25 mg Documented by: [id number] Admin: 07/08/21 08:49 Dose: 25 mg Documented by: [id number] Admin: 07/07/21 08:46 Dose: 25 mg Documented by: [id number] Admin: 07/06/21 08:54 Dose: 25 mg Documented by: [id number] Admin: 07/05/21 08:13 Dose: 25 mg Documented by: [id number] Tramadol HCl (Tramadol Hcl 50 Mg Tablet) 50 mg PO Q6 PRN PRN Reason: Pain Stop: 08/04/21 06:04 Last Admin: 07/06/21 04:37 Dose: 50 mg Documented by: [id number] Admin: 07/05/21 19:33 Dose: 50 mg Documented by: [id number] Tramadol HCl (Tramadol Hcl 50 Mg Tablet) 50 mg PO NOW STA Stop: 07/05/21 06:07 Last Admin: 07/05/21 06:39 Dose: 50 mg Documented by: [id number] Trimethoprim/Sulfamethoxazole (Sulfamethoxazole/Trimethoprim Ds 800/160mg Tab) 1 tab PO BID EMPERATRIZ Stop: 07/15/21 09:01 Last Admin: 07/15/21 09:03 Dose: 1 tab Documented by: [id number] Admin: 07/14/21 21:19 Dose: 1 tab Documented by: [id number] Admin: 07/14/21 08:44 Dose: 1 tab Documented by: [id number] Admin: 07/13/21 20:21 Dose: 1 tab Documented by: [id number] Admin: 07/13/21 08:58 Dose: 1 tab Documented by: [id number] Admin: 07/12/21 21:06 Dose: 1 tab Documented by: [id number] Warfarin Sodium (Warfarin Sod 2.5 Mg Tab) 2.5 mg PO DAILY@1600 [facility] Stop: 08/04/21 15:59 Last Admin: 07/06/21 16:48 Dose: 2.5 mg Documented by: [id number] Admin: 07/05/21 15:46 Dose: 2.5 mg Documented by: [id number] Warfarin Sodium (Warfarin Sod 5 Mg Tab) 5 mg PO DAILY@1600 [facility] Stop: 08/06/21 15:59 Last Admin: 07/07/21 17:35 Dose: 5 mg Documented by: [id number] Warfarin Sodium (Warfarin Sod 7.5 Mg Tab) 7.5 mg PO DAILY@1600 [facility] Stop: 08/07/21 15:59 Last Admin: 07/08/21 16:35 Dose: 7.5 mg Documented by: [id number] Warfarin Sodium (Warfarin Sod 10 Mg Tab) 10 mg PO DAILY@1600 [facility] Stop: 08/08/21 15:59 Last Admin: 07/11/21 16:07 Dose: 10 mg Documented by: [id number] Admin: 07/10/21 16:29 Dose: 10 mg Documented by: [id number] Admin: 07/09/21 16:56 Dose: 10 mg Documented by: [id number] Warfarin Sodium (Warfarin Sod 5 Mg Tab) 5 mg PO DAILY@1600 [facility] Stop: 08/11/21 15:59 Last Admin: 07/12/21 17:04 Dose: 5 mg Documented by: [id number] Warfarin Sodium (Warfarin Sod 7.5 Mg Tab) 7.5 mg PO DAILY@1600 [facility] Stop: 08/12/21 15:59 Last Admin: 07/18/21 15:44 Dose: 7.5 mg Documented by: [id number] Admin: 07/17/21 15:54 Dose: 7.5 mg Documented by: [id number] Admin: 07/16/21 18:16 Dose: 7.5 mg Documented by: [id number] Admin: 07/15/21 16:01 Dose: 7.5 mg Documented by: [id number] Admin: 07/14/21 16:09 Dose: 7.5 mg Documented by: [id number] Admin: 07/13/21 17:17 Dose: 7.5 mg Documented by: [id number] Description This is a 21 electrode EEG with a single channel dedicated to limited EKG. The electrodes were placed in accordance with the International 10-20 system. Interpretation There is a posterior dominant rhythm of 10 to 12 Hz which is symmetrically distributed and attenuates with eye opening. There is a normal anterior to posterior organization. Photic stimulation is unremarkable. Hyperventilation is not performed. There is a symmetric frontal beta rhythm. There is fairly continuous muscle and movement artifact throughout the study. There is a minimal degree of admixed low amplitude theta activity. There are no epileptiform abnormalities. Clinical Correlation Normal-appearing awake/drowsy EEG. A normal EEG does not completely exclude a diagnosis of epilepsy. Further clinical correlation may be needed. [facility] Procedure Codes Indication for Procedure (1) Syncope: Neurology Neurology: 87006 EEG include record awake & drowsy
--- NOTE | 2021-07-31 13:53 | Hospitalist Progress Note ---
Date of Service July 31, 2021 Assessment & Plan (1) Syncope: Plan: (1) Syncope: Plan: Status post fall Subgaleal hemorrhage Possible recurrent syncope Occurred yesterday while patient was at the commode 07/29/2021 No prodrome Patient and his significant other reports similar episodes at home Patient significant other reports possible seizure-like presentation when it happens No confusion after episodes Repeat CT head: No acute intracerebral pathology. Compared to the previous examination, there is now a small to moderate-sized subgaleal hematoma anterior to the forehead. There is again evidence for sinusitis. Check orthostatic vital signs: Pending EKG: normal sinus rhythm, no acute ischemia or infarct Troponin: Negative x3 Echocardiogram: EF 60 to 65%, right ventricular systolic function is qualitatively normal, mild tricuspid regurgitation, Doppler findings do not suggest pulmonary hypertension Compared to previous study, there is no significant change EEG: Normal appearing awake/drowsy EEG Discussed with neurologist Dr. Dunham Syncope likely secondary to vasovagal etiology Recommends brain MRI with seizure protocol, CT angiogram head and neck Recommend discussion with neurosurgery regarding subgaleal hemorrhage Discussed with neurosurgeon on-call at [facility] Dr. Nova, recommend to hold Coumadin for 3 days since time of fall, if with no clinical worsening, may resume Coumadin Recommend cardiology service evaluation, discussed case with senior account clerk Dr. Penn Left upper extremity pain CT of the shoulder, humerus, elbow, forearm: No fractures Orthopedic service consulted (2) Acute on chronic diastolic heart failure: Plan: Presented with about 20 pounds weight gain in a few days with associated shortness of breath and increasing leg swelling Noted to have chest x-ray evidence of CHF Patient given IV Lasix with good response was on Lasix 40 mg twice daily and spironolactone 25 milligrams daily. Creatinine improved from before, today 1.[address] angiogram today, will hold Lasix in the evening as patient appears to be euvolemic Monitor renal function As needed maximum 2 doses per day (3) Chronic pain disorder: Plan: Patient reporting left upper extremity pain after the fall IV morphine ordered 1 dose for CAT scan per patient's request IV Tylenol as needed ordered, maximum 2 doses per day Continue Subutex and tramadol Otherwise chronic pain is well controlled (4) COPD exacerbation: Plan: Chronic respiratory failure with hypoxia--uses 4 L at bedtime and intermittently H/O COPD and felt to have a possible mild exacerbation on admission. Stable, no wheezing, on room air (5) Urinary tract infection associated with catheterization of urinary tract: Plan: H/O Indwelling Lloyd catheter with recurrent urinary tract infection, POA. Likely secondary to chronic Lloyd catheter Urine culture Enterococcus faecalis, nonfermenter species completed antibiotic course this admission (6) DM type 2 (diabetes mellitus, type 2): Plan: Controlled as inpatient, cont current insulin regimen. (7) Anticoagulated on Coumadin: Plan: H/O PE and DVT INR 2.8 Hold Coumadin for now in light of head injury, subgaleal hematoma Check INR daily (8) HTN (hypertension): Plan: controlled, cont current therapy. (9) Hematochezia: Plan: Bright red blood per rectum reported earlier in admisison, which has now resolved. H/H has remained stable. Follow-up with GI as an outpatient (10) Morbid obesity: Plan: Continued to recommend Weight loss. (11) Right knee pain: Plan: Per previous attending note: Complaint right knee pain following a pop earlier this admission. Xray revealed no acute fracture. There is no clear abnormality on exam and patient is not reporting pain and is reporting that he can ambulate well around the room. No further investigation. Generalized knee pain now being reported as "compensation from avoiding pain in other joints" --one dose Toradol given above. Would not consistently use NSAIDs in setting of coumadin use to avoid bleeding risk. 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 Seen sitting up in bed, comfortable, not in distress Pain over the right head area but the same, as yesterday No headache, change in vision, no neurologic deficits, nausea vomiting no chest pain, dyspnea, palpitations, dizziness Still reports some pain over the left upper extremity, worse with movement No bleeding No other symptoms Review of Systems Review of Systems: all noted and negative except for above Physical Exam Physical Exam: General- oriented x 3, not in distress, speaks in sentences with no effort or accessory muscle use Head-positive small hematoma overlying the right forehead above the eyebrow, improving Eyes- anicteric Positive small hematoma around the right eye Fall EOMs Neck- no JVD Lungs- clear breath sounds bilaterally, no rales/wheezes Heart- normal rate, regular rhythm; no murmurs Abdomen- normal bowel sounds, nondistended, soft, nontender Lloyd catheter in place-yellow urine Extremities- no pretibial edema, no calf tenderness Neuro- alert, oriented x 3; no gross focal neurologic deficits Skin- warm & dry Results & Data Results & Data ([facility]) Vital Signs (Past 12 Hours) Vital Signs Temp Pulse Pulse Resp BP Pulse Ox 07/31/21 11:00 36.7 C 68 20 139/58 L 97 07/31/21 08:00 70 07/31/21 03:15 36.8 C 61 17 139/75 97 all noted and reviewed including below
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
[2021-07-31] MEDS ORDERED: HYDROmorphone INJ 2 MG/ML SYR/VIAL IV ONE (15:39)
--- NOTE | 2021-07-31 19:44 | Electrocardiogram Report ---
Test Reason : Blood Pressure : / mmHG Vent. Rate : 068 BPM Atrial Rate : 068 BPM P-R Int : 164 ms QRS Dur : 108 ms QT Int : 398 ms P-R-T Axes : 055 026 045 degrees QTc Int : 423 ms Normal sinus rhythm Incomplete right bundle branch block When compared with ECG of 05-JUL-2021 01:56, Vent. rate has decreased BY 41 BPM Confirmed by Shaquille Canales ([id number]) on 07/31/2021 7:44:34 PM Referred By: REFERRED SELF Confirmed By:Shaquille Canlaes
[2021-07-31] MEDS: LORazepam 0.5 MG TAB PO PRN (21:08)
[2021-07-31] MEDS: MELATONIN 3 MG TAB PO PRN (21:08)
[2021-07-31] MEDS: DICLOFENAC SOD 1% GEL 100 GM TUBE EXT PRN (21:17)
[2021-07-31] MEDS: NYSTATIN POWDER 15GM BTL EXT SCH (21:18)
[2021-07-31] MEDS: INSULIN GLARGINE SOLOSTAR 100 UNITS/ML 3 ML PEN SC SCH (21:31)
[2021-08-01] MEDS ORDERED: traMADol HCL 50 MG TABLET PO STA (00:02)
[2021-08-01] MEDS: ACETAMINOPHEN 1,000 MG/100 ML VIAL IV PRN ×3 (03:38→20:35)
[2021-08-01] MEDS: PANTOprazole 40 MG TAB PO SCH (05:51)
[2021-08-01 06:15] LABS: Basophils # (auto) 0.06 K/uL (0-0.2); Basophils % (auto) 0.6 %; Eosinophils # (auto) 0.77 K/uL (0-0.5); Eosinophils % (auto) 7.7 %; Hematocrit (blood only) 40.5 % (42-52); Hemoglobin 12.8 g/dL (14.0-18.0); Immature Granulocytes # (auto) 0.02 K/uL (0.00-0.02); Immature Granulocytes % (auto) 0.2 %; Lymphocytes # (auto) 2.37 K/uL (1.2-3.4); Lymphocytes % (auto) 23.7 %; Mean Corpuscular Hemoglobin 26.7 pg (25-34); Mean Corpuscular Hgb Conc 31.6 g/dL (32-36); Mean Corpuscular Volume 84.4 fL (80-100); Mean Platelet Volume 9.8 fL (7.4-10.4); Monocytes # (auto) 0.92 K/uL (0.11-0.59); Monocytes % (auto) 9.2 %; Neutrophils # (auto) 5.87 K/uL (1.4-6.5); Neutrophils % (auto) 58.6 %; Platelet Count 211 K/uL (130-400); RDW Coefficient of Variation 17.1 % (11.5-14.5); RDW Standard Deviation 52.7 fL (36.4-46.3); White Blood Count 10.01 K/uL (4.8-10.8)
[2021-08-01 06:26] LABS: INR 1.7 (0.9-1.1); Prothrombin Time 16.7 Seconds (9.0-12.0)
[2021-08-01 07:01] LABS: BUN Creatinine Ratio 15.1 (10-20); Calcium 9.9 mg/dl (8.5-10.1); Creatinine Clr Calc Pharmacy 141.9 ml/min; Est GFR (African American) 86.7 ml/min; Est GFR (Non-African American) 74.8 ml/min; Potassium 4.4 mmol/L (3.5-5.1)
[2021-08-01] MEDS: traMADol HCL 50 MG TABLET PO PRN ×3 (08:55→21:06)
[2021-08-01] MEDS: INSULIN ASPART 100 UNITS/ML 3 ML PEN SC SCH ×5 (09:00→20:30)
--- NOTE | 2021-08-01 09:07 | Pain Management Progress Note ---
Date of Service August 01, 2021 Assessment & Plan (1) Foot ulcer, right: Non-pressure ulcer stage: unspecified non-pressure ulcer stage Qualified Code(s): L97.519 - Non-pressure chronic ulcer of other part of right foot with unspecified severity (2) Drug-seeking behavior: (3) Morbid obesity: (4) Chronic pain: (5) Lumbar radiculopathy: (6) Peripheral neuropathy: Plan: * Continue Subutex 8mg SL TID. * Continue Cymbalta 60 mg daily, gabapentin 800 mg 3 times daily. * He is receiving Tramadol 10mmg x 6 hours which he does take around the clock. This is the maximum amount of daily Tramadol. I have advised the patient that he will not be given any additional doses. * Patient is taking Subutex. He should not be receiving opioids for his chronic pain complaints. Opioids would only be appropriate for acute or postoperative pain for a limited amount of time. * No interventional procedures to offer patient. * Patient did request an IV PRN medication such as Dilaudid. This request was denied. I did give an example that if he came into the Emergency Department for a fall such as this and imaging was negative, he would be sent home and instructed to take Tylenol if needed. Opioids are not indicated for an uncomplicated fall. This is the same case as the fall during his admission. * Could apply an cesilia wrap onto the left arm for some comfort if possible given that he does have an IV in place on that arm. * Patient is frustrated but understanding of these medical decisions. * Nothing further to offer the patient. Will sign off. Please call with any questions or concerns. Admission and Anticipated Discharge Date Admission Date: July 05, 2021 Subjective Mr. Milner is a 51-year-old male that is well-known to the [facility] with a history of pulmonary embolism, COPD, chronic indwelling Lloyd catheter, type 2 diabetes, coronary artery disease, CHF, chronic pain, morbid obesity, and drug-seeking behavior.He did have a syncopal episode while on the commode on 07/30 and hit his head onto the floor. He is complaining of headache, neck pain, and left arm pain. CT scans showed a moderate subgaleal hematoma, otherwise negative. His primary pain complaint is of the left forea rm. Orthopedics evaluated the arm and exam was unremarkable. Patient does continue to ask for more pain medications since the fall. He is currently taking Subutex 8mg TID, Tramadol 100mg x 6 hours, Ofirmev 1000mg IV x 8 hours. After the fall he was given 1.5 mg IV Dilaudid which did help and he does request a PRN medication if needed for pain. He was also given an additional Tramadol 100mg PO dose last night due to increased pain. Physical Exam Physical Exam: GENERAL: This is a 51 year old morbidly obese male. Resting comfortably in the hospital bed. In no acute distress. HEAD/FACE: + forehead hematoma. EYES: No drainage or conjunctival injection. ENT: Nose without bleeding or discharge. Oral mucosa moist. RESPIRATORY: Patient with unlabored breathing. No signs of respiratory distress. CHEST/AXILLA: Chest movement symmetrical. No deformities noted. SKIN: [place], warm and dry. No rash noted. MS/EXTREMITY: No swelling, no deformities. Moving extremities appropriately. Lef tforearm tenderness. NEURO: Alert and appears oriented. Speech is fluent. Cranial Nerves are grossly intact. PSYCH: Alert, pleasant, affect is calm
[2021-08-01] MEDS: buprenorphine HCL 8 MG SUBL SL SCH ×3 (10:07→20:12)
[2021-08-01] MEDS: NICOTINE 21 MG/24 HR TDSY TD SCH (10:09)
[2021-08-01] MEDS: DOXYCYCLINE HYCLATE 100 MG CAP PO SCH ×2 (10:10→20:13)
[2021-08-01] MEDS: ERGOCALCIFEROL 50,000 UNITS 1250 MCG CAP PO SCH (10:12)
[2021-08-01] MEDS: DULoxetine HCL 60 MG CAP PO SCH (10:12)
[2021-08-01] MEDS: FINASTERIDE 5 MG TAB PO SCH (10:12)
[2021-08-01] MEDS: FAMOTIDINE 20 MG TAB PO SCH (10:12)
[2021-08-01] MEDS: FLUTICASONE PROPIONATE NA SPR 16 GM BTL SCH (10:13)
[2021-08-01] MEDS: FLUTICASONE/VILANTEROL 100/25MCG 14 PUFFS/INHALER INH SCH (10:16)
[2021-08-01] MEDS: GABAPENTIN 800 MG TAB PO SCH ×3 (10:17→20:13)
[2021-08-01] MEDS: FOLIC ACID 1 MG TAB PO SCH (10:17)
[2021-08-01] MEDS: ADVANCED PROBIOTIC 1250 MG CAPSULE PO SCH ×3 (10:18→20:31)
[2021-08-01] MEDS: guaiFENesin 600 MG TABCR PO SCH ×2 (10:18→20:14)
[2021-08-01] MEDS: METOPROLOL SUCC 25MG EXT REL TAB PO SCH ×2 (10:19→20:31)
[2021-08-01] MEDS: UMECLIDINIUM BROMIDE 62.5MCG/BLISTER 7 PUFFS/INHALER INH SCH (10:21)
[2021-08-01] MEDS: TAMSULOSIN HCL 0.4 MG CAP PO SCH (10:21)
[2021-08-01] MEDS: NYSTATIN POWDER 15GM BTL EXT SCH ×2 (10:21→20:16)
[2021-08-01] MEDS ORDERED: HYDROmorphone INJ 1 MG/ML SYRINGE IV ONE (11:48)
[2021-08-01] MEDS: ATORVASTATIN 40 MG TAB PO SCH (12:19)
[2021-08-01] MEDS: POLYETHYLENE (MIRALAX) 17 GM PACK PO SCH (12:25)
[2021-08-01] MEDS: DOCUSATE SODIUM 100 MG CAP PO SCH ×2 (12:25→20:31)
--- NOTE | 2021-08-01 12:26 | Hospitalist Progress Note ---
Date of Service August 01, 2021 Assessment & Plan (1) Syncope: Plan: (1) Syncope: Plan: Status post fall Subgaleal hemorrhage Possible recurrent syncope Occurred while patient was at the commode 07/29/2021 No prodrome Patient and his significant other reports similar episodes at home Patient significant other reports possible seizure-like presentation when it happens No confusion after episodes Repeat CT head: No acute intracerebral pathology. Compared to the previous examination, there is now a small to moderate-sized subgaleal hematoma anterior to the forehead. There is again evidence for sinusitis. Check orthostatic vital signs: Pending EKG: normal sinus rhythm, no acute ischemia or infarct Troponin: Negative x3 Echocardiogram: EF 60 to 65%, right ventricular systolic function is qualitatively normal, mild tricuspid regurgitation, Doppler findings do not suggest pulmonary hypertension Compared to previous study, there is no significant change EEG: Normal appearing awake/drowsy EEG Discussed with neurologist Dr. Dunham Syncope likely secondary to vasovagal etiology Recommends brain MRI with seizure protocol, CT angiogram head and neck- MRI cannot be performed due to patient's body habitus, CT angiogram was not completed yesterday as patient got stuck in the machine during the process Recommend discussion with neurosurgery regarding subgaleal hemorrhage Discussed with neurosurgeon on-call at [facility] Dr. Nova, recommend to hold Coumadin for 3 days since time of fall, if with no clinical worsening, may resume Coumadin Recommend cardiology service evaluation, discussed case with educational administrator Dr. Penn-syncope felt to be secondary to vasovagal episode 08/01/2021 Stable from neurologic standpoint No presyncope, syncope Hold Lasix again for today, patient euvolemic, patient also received CT contrast yesterday Discussed again with neurosurgeon Dr. Hogan, he is okay with initiating Lovenox subcutaneous 100 mg twice a day for DVT prophylaxis, and Coumadin tomorrow Left upper extremity pain CT of the shoulder, humerus, elbow, forearm: No fractures Orthopedic service consulted-likely secondary to contusion Pain management reconsulted as patient requesting additional pain medication Discussed with AURELIA Evans in detail No additional narcotic medication recommended at this pointpatient is at high risk for developing adverse effects with additional narcotic medication They are okay with one-time additional narcotic before patient undergoes procedures/imaging studies For now, recommend to continue with Subutex, tramadol, as needed IV Tylenol This was discussed and detail and at length with patient, he expressed frustration but was accepting with this plan of care Check left upper extremity Doppler ultrasound to rule out DVT (2) Acute on chronic diastolic heart failure: Plan: Presented with about 20 pounds weight gain in a few days with associated shortness of breath and increasing leg swelling Noted to have chest x-ray evidence of CHF Patient given IV Lasix with good response was on Lasix 40 mg twice daily and spironolactone 25 milligrams daily. Creatinine improved Patient appears to be euvolemic today Received IV contrast yesterday Hold Lasix for today Most likely resume tomorrow if creatinine stable (3) Chronic pain disorder: Plan: Patient reporting left upper extremity pain after the fall Management per #1 IV Dilaudid 1 dose ordered prior to ultrasound per patient's request (4) COPD exacerbation: Plan: Chronic respiratory failure with hypoxia--uses 4 L at bedtime and intermitte ntly H/O COPD and felt to have a possible mild exacerbation on admission. Stable, no wheezing, on room air (5) Urinary tract infection associated with catheterization of urinary tract: Plan: H/O Indwelling Lloyd catheter with recurrent urinary tract infection, POA. Likely secondary to chronic Lloyd catheter Urine culture Enterococcus faecalis, nonfermenter species completed antibiotic course this admission (6) DM type 2 (diabetes mellitus, type 2): Plan: Controlled as inpatient, cont current insulin regimen. (7) Anticoagulated on Coumadin: Plan: H/O PE and DVT INR 1.7 Coumadin held for now in light of head injury, subgaleal hematoma Per discussion with [facility] neurosurgeon, hold Coumadin for at least 3 days, today is the third day INR 1.7 Discussed case in detail and at length with nuclear medicine supervisor Dr. Gaines Recommend starting Lovenox 100 mg subcutaneous every 12 for DVT prophylaxis today if okay with neurosurgeon Discussed with neurosurgeon, he is okay with starting Lovenox 100 mg subcutaneous every 12 hours for DVT prophylaxis and patient stable resume Coumadin tomorrow with Lovenox for DVT prophylaxis as necessary Check INR daily Discussed with patient in detail at length, he is agreeable, comfortable plan of care (8) HTN (hypertension): Plan: controlled, cont current therapy. (9) Hematochezia: Plan: Bright red blood per rectum reported earlier in admisison, which has now resolved. H/H has remained stable. Follow-up with GI as an outpatient (10) Morbid obesity: Plan: Continued to recommend Weight loss. (11) Right knee pain: Plan: Per previous attending note: Complaint right knee pain following a pop earlier this admission. Xray revealed no acute fracture. There is no clear abnormality on exam and patient is not reporting pain and is reporting that he can ambulate well around the room. No further investigation. Generalized knee pain now being reported as "compensation from avoiding pain in other joints" --one dose Toradol given above. Would not consistently use NSAIDs in setting of coumadin use to avoid bleeding risk. (12) DVT prophylaxis: Plan: Lovenox twice daily (13) medication error Patient service excellence mechanical service representative Usman, in communication with patient Patient requesting update, relayed to Usman Who will speak with patient today Dispo-awaiting transfer to [facility] plan of care discussed with patient in detail and at length all questions answered he is understanding, agreeable, comfortable with the plan of care Patient expressed gratitude to me with care provided Admission and Anticipated Discharge Date Admission Date: July 05, 2021 Subjective Follow-up for CHF diastolic type, COPD, syncope, status post fall, etc. Seen with ALEXANDER Mcmullen at the bedside throughout whole encounter Seen resting in bed, sitting up, comfortable, not in distress Patient in good spirits, occasionally joking States he has similar pain on the right forehead hematoma area, no changes with vision, nausea vomiting, dizziness, focal neurologic symptoms No shortness of breath, chest pain, palpitations No abdominal pain, nausea vomiting, problems with bowel movement Reports left arm pain, worse with movement No other symptoms Review of Systems Review of Systems: all noted and negative except for above Physical Exam Physical Exam: General- oriented x 3, not in distress, speaks in sentences with no effort or accessory muscle use Head-small hematoma right forehead above the right eyebrow, unchanged compared to yesterday, no increase in swelling or area affected Eyes-positive mild periorbital hematoma around the right eye, anicteric Neck- no JVD Lungs- clear breath sounds bilaterally, no rales/wheezes Heart- normal rate, regular rhythm; no murmurs Chest-erythema in the skin fold of the right breast area, improved compared to yesterday, no discharge, drying, no tenderness Abdomen- normal bowel sounds, nondistended, soft, nontender Lloyd catheter in place, draining yellow urine Extremities- no pretibial edema, no calf tenderness Neuro- alert, oriented x 3; no gross focal neurologic deficits Skin- warm & dry Results & Data Results & Data ([facility]) Vital Signs (Past 12 Hours) Vital Signs Temp Pulse Pulse Resp BP Pulse Ox 08/01/21 07:17 36.5 C 56 L 16 100/58 L 97 08/01/21 04:00 36.9 C 59 L 15 98/43 L 95 all noted and reviewed including below
[2021-08-01] MEDS: ENOXAPARIN 100 MG/1ML SYR SQ SCH (12:35)
--- NOTE | 2021-08-01 13:17 | Ultrasound Report ---
US venous doppler UE LT HISTORY: 51 years-old Male LUE pain/swelling, r/o dvt acute pain and swelling of the left upper extr emity COMPARISON: 07/05/2018 TECHNIQUE: Multiple real-time sonographic images of the left upper cavity deep venous structures were obtained assessing grayscale appearance, color and spectral flow FINDINGS: Normal flow, compressibility, and phasicity. IMPRESSION: No DVT ACT 112: Negative or not required by law. The above report was generated using voice recognition software. It may contain grammatical, syntax o r spelling errors. Electronically signed by: Shelton Apodaca M.D. 08/01/2021 1:16 PM
--- NOTE | 2021-08-01 13:40 | Cardiology Progress Note ---
Date of Service August 01, 2021 Assessment & Plan (1) Vasovagal syncope: (2) Elevated INR: (3) Subgaleal hemorrhage: (4) Chronic right heart failure: Plan: 51-year-old male with episode of syncope, likely vasovagal, associated with straining during defecation. Similar symptoms reported associated with cough. Telemetry reveals sinus rhythm. Repeat resting 2D transthoracic echocardiogram demonstrates preserved LV systolic function, stable mild right ventricular dilatation with normal RV function. No evidence of pulmonary hypertension or diastolic dysfunction. Continue telemetry monitoring. Conservative management of vasovagal syncope includes maintenance of adequate hydration, use of [id number] compression stockings, counterpressure maneuvers, and avoidance of injury by lowering himself to the ground with any prodromal symptoms. Resume furosemide in a.m. 08/02/2021. No indication for pacemaker currently. Thank you for allow me to participate in the care of your patient. Cardiology will sign off. Please call with any further concerns or questions. Admission and Anticipated Discharge Date Admission Date: July 05, 2021 Subjective Patient seen and examined at the bedside. Telemetry reveals sinus rhythm. Fluid balance -2.8 L. Denies recurrent lightheadedness or dizziness. Blood pressure controlled with intermittent borderline hypotension. Isosorbide monohydrate discontinued. Review of Systems Review of Systems: All systems reviewed & are unremarkable except as noted in Subjective Physical Exam Constitutional: well developed and well nourished; no acute distress Respiratory: normal respiratory effort; no respiratory distress and no labored breathing Auscultation: lungs clear to auscultation bilaterally; no crackles, no rales, no rhonchi and no wheezes Cardiovascular: Rate/Rhythm: regular rate and regular rhythm Heart Sounds: normal S1 and normal S2; no murmur Vessels: radial pulses present; no JVD and no carotid bruit Extremities: + edema (Trace bilateral pretibial edema with stasis changes.) Gastrointestinal (Abdomen): Inspection/Auscultation: normal bowel sounds; abdomen not distended and no abdominal edema Percussion/Palpation: abdomen soft; abdomen nontender, no guarding and abdomen not rigid Neurologic: CN's II-XI intact bilaterally and moves all extremities; no focal motor deficits Results & Data ([facility]) Vital Signs (Past 12 Hours) Vital Signs Temp Pulse Pulse Resp BP Pulse Ox 08/01/21 12:00 36.7 C 62 19 119/50 L 96 08/01/21 07:17 36.5 C 56 L 16 100/58 L 97 08/01/21 04:00 36.9 C 59 L 15 98/43 L 95
--- NOTE | 2021-08-01 15:26 | Ultrasound Report ---
US carotid doppler BI CLINICAL HISTORY: 51 years-old Male with syncope. COMPARISON: Carotid Doppler 02/26/2016 TECHNIQUE: Multiple real time sonographic images of the carotid bifurcations were obtained assessing donald scale, color Doppler and spectral wave form appearance FINDINGS: RIGHT CAROTID: The peak systolic velocity measured within the right ICA is100 cm/sec. The end diast olic velocity measured 12 cm/sec. The ICA to CCA ratio measured 1.2 which correlates with a stenosis of 0-50%. LEFT CAROTID: The peak systolic velocity measured within the left ICA is64 cm/sec. The end diastoli c velocity measured 10.6 cm/sec. The ICA to CCA ratio measured 0.7 which correlates with a stenosis o f 0-50%. There is normal antegrade vertebral flow bilaterally. Blood pressure on the right measured at 135/69 and on the left measured at 141/70. IMPRESSION: 1. No hemodynamically significant stenosis or significant atherosclerotic plaquing. 2. Normal antegrade vertebral flow bilaterally. ACT 112: Negative or not required by law. The above report was generated using voice recognition software. It may contain grammatical, syntax o r spelling errors. Electronically signed by: Shelton Apodaca M.D. 08/01/2021 3:25 PM
[2021-08-01] MEDS: MELATONIN 3 MG TAB PO PRN (20:21)
[2021-08-01] MEDS: LORazepam 0.5 MG TAB PO PRN (20:23)
[2021-08-01] MEDS: INSULIN GLARGINE SOLOSTAR 100 UNITS/ML 3 ML PEN SC SCH (20:31)
[2021-08-01] MEDS: INSULIN GLARGINE 100 UNIT/ML VIAL SC SCH (20:34)
[2021-08-02] MEDS: ENOXAPARIN 100 MG/1ML SYR SQ SCH ×3 (00:12→23:01)
[2021-08-02] MEDS: traMADol HCL 50 MG TABLET PO PRN ×4 (03:07→19:18)
[2021-08-02] MEDS: ACETAMINOPHEN 1,000 MG/100 ML VIAL IV PRN ×3 (05:32→22:17)
[2021-08-02] MEDS: PANTOprazole 40 MG TAB PO SCH (05:33)
[2021-08-02 05:38] LABS: Basophils # (auto) 0.04 K/uL (0-0.2); Basophils % (auto) 0.4 %; Eosinophils # (auto) 0.72 K/uL (0-0.5); Eosinophils % (auto) 7.4 %; Hematocrit (blood only) 41.8 % (42-52); Hemoglobin 13.1 g/dL (14.0-18.0); Immature Granulocytes # (auto) 0.02 K/uL (0.00-0.02); Immature Granulocytes % (auto) 0.2 %; Lymphocytes # (auto) 2.76 K/uL (1.2-3.4); Lymphocytes % (auto) 28.2 %; Mean Corpuscular Hemoglobin 26.7 pg (25-34); Mean Corpuscular Hgb Conc 31.3 g/dL (32-36); Mean Corpuscular Volume 85.1 fL (80-100); Mean Platelet Volume 10.1 fL (7.4-10.4); Monocytes # (auto) 0.88 K/uL (0.11-0.59); Neutrophils # (auto) 5.37 K/uL (1.4-6.5); Neutrophils % (auto) 54.8 %; Platelet Count 203 K/uL (130-400); RDW Coefficient of Variation 17.1 % (11.5-14.5); RDW Standard Deviation 53.1 fL (36.4-46.3); Red Blood Count 4.91 M/uL (4.7-6.1); White Blood Count 9.79 K/uL (4.8-10.8)
[2021-08-02 05:51] LABS: INR 1.3 (0.9-1.1); Prothrombin Time 12.9 Seconds (9.0-12.0)
[2021-08-02 06:08] LABS: BUN Creatinine Ratio 16.2 (10-20); Calcium 9.5 mg/dl (8.5-10.1); Creatinine Clr Calc Pharmacy 148.5 ml/min; Est GFR (African American) 91.6 ml/min; Potassium 4.9 mmol/L (3.5-5.1)
[2021-08-02] MEDS: INSULIN ASPART 100 UNITS/ML 3 ML PEN SC SCH ×4 (07:41→21:06)
[2021-08-02] MEDS: buprenorphine HCL 8 MG SUBL SL SCH ×3 (08:36→20:57)
[2021-08-02] MEDS: NICOTINE 21 MG/24 HR TDSY TD SCH (08:37)
[2021-08-02] MEDS: DOXYCYCLINE HYCLATE 100 MG CAP PO SCH ×2 (08:38→21:00)
[2021-08-02] MEDS: DULoxetine HCL 60 MG CAP PO SCH (08:39)
[2021-08-02] MEDS: FINASTERIDE 5 MG TAB PO SCH (08:39)
[2021-08-02] MEDS: FAMOTIDINE 20 MG TAB PO SCH (08:39)
[2021-08-02] MEDS: FLUTICASONE PROPIONATE NA SPR 16 GM BTL SCH (08:40)
[2021-08-02] MEDS: FUROSEMIDE 40 MG TAB PO SCH ×2 (08:43→16:59)
[2021-08-02] MEDS: FLUTICASONE/VILANTEROL 100/25MCG 14 PUFFS/INHALER INH SCH (08:44)
[2021-08-02] MEDS: UMECLIDINIUM BROMIDE 62.5MCG/BLISTER 7 PUFFS/INHALER INH SCH (08:45)
[2021-08-02] MEDS: TAMSULOSIN HCL 0.4 MG CAP PO SCH (08:46)
[2021-08-02] MEDS: guaiFENesin 600 MG TABCR PO SCH ×2 (08:47→20:59)
[2021-08-02] MEDS: NYSTATIN POWDER 15GM BTL EXT SCH ×2 (08:47→21:03)
[2021-08-02] MEDS: GABAPENTIN 800 MG TAB PO SCH ×3 (08:48→21:00)
[2021-08-02] MEDS: FOLIC ACID 1 MG TAB PO SCH (08:48)
[2021-08-02] MEDS: ADVANCED PROBIOTIC 1250 MG CAPSULE PO SCH ×3 (08:49→20:58)
[2021-08-02] MEDS: METOPROLOL SUCC 25MG EXT REL TAB PO SCH ×2 (08:50→20:58)
[2021-08-02] MEDS: DOCUSATE SODIUM 100 MG CAP PO SCH ×2 (09:08→21:03)
[2021-08-02] MEDS: POLYETHYLENE (MIRALAX) 17 GM PACK PO SCH (09:10)
[2021-08-02] MEDS: ATORVASTATIN 40 MG TAB PO SCH (12:38)
--- NOTE | 2021-08-02 15:21 | Hospitalist Progress Note ---
Date of Service August 02, 2021 Assessment & Plan (1) Syncope: Plan: (1) Syncope: Plan: Status post fall Subgaleal hemorrhage Possible recurrent syncope Occurred while patient was at the commode 07/29/2021 No prodrome Patient and his significant other reports similar episodes at home Patient significant other reports possible seizure-like presentation when it happens No confusion after episodes Repeat CT head: No acute intracerebral pathology. Compared to the previous examination, there is now a small to moderate-sized subgaleal hematoma anterior to the forehead. There is again evidence for sinusitis. Check orthostatic vital signs: Pending EKG: normal sinus rhythm, no acute ischemia or infarct Troponin: Negative x3 Echocardiogram: EF 60 to 65%, right ventricular systolic function is qualitatively normal, mild tricuspid regurgitation, Doppler findings do not suggest pulmonary hypertension Compared to previous study, there is no significant change EEG: Normal appearing awake/drowsy EEG Discussed with neurologist Dr. Dunham Syncope likely secondary to vasovagal etiology Recommends brain MRI with seizure protocol, CT angiogram head and neck- MRI cannot be performed due to patient's body habitus, CT angiogram was not completed yesterday as patient got stuck in the machine during the process Recommend discussion with neurosurgery regarding subgaleal hemorrhage Discussed with neurosurgeon on-call at [facility] Dr. Nova, recommend to hold Coumadin for 3 days since time of fall, if with no clinical worsening, may resume Coumadin Recommend cardiology service evaluation, discussed case with park [employer] Dr. Penn-syncope felt to be secondary to vasovagal episode 08/02/2021 Patient continues to remain stable from neurologic standpoint No recurrence of presyncope, syncope Creatinine stable, BP stable, resume Lasix Per discussion with neurosurgeon and ham curer yesterday, will resume Coumadin today at 15 mg, continue Lovenox for DVT prophylaxis Left upper extremity pain CT of the shoulder, humerus, elbow, forearm: No fractures Orthopedic service consulted-likely secondary to contusion Pain management reconsulted as patient requesting additional pain medication Discussed with AURELIA Evans in detail No additional narcotic medication recommended at this pointpatient is at high risk for developing adverse effects with additional narcotic medication They are okay with one-time additional narcotic before patient undergoes procedures/imaging studies For now, recommend to continue with Subutex, tramadol, as needed IV Tylenol This was discussed and detail and at length with patient, he expressed frustration but was accepting with this plan of care 08/02/2021 left upper extremity Doppler ultrasound: No DVT Rib x-ray: No acute fractures Rob wrap as per pain management service recommendation Continue Subutex, tramadol, IV Tylenol Patient agreeable with plan of care (2) Acute on chronic diastolic heart failure: Plan: Presented with about 20 pounds weight gain in a few days with associated shortness of breath and increasing leg swelling Noted to have chest x-ray evidence of CHF Patient given IV Lasix with good response was on Lasix 40 mg twice daily and spironolactone 25 milligrams daily. Creatinine improved Resume Lasix 40 mg twice daily Monitor closely (3) Chronic pain disorder: Plan: Management per #1 (4) COPD exacerbation: Plan: Chronic respiratory failure with hypoxia--uses 4 L at bedtime and intermittently H/O COPD and felt to have a possible mild exacerbation on admission. Stable, no wheezing, on room air (5) Urinary tract infection associated with catheterization of urinary tract: Plan: H/O Indwelling Lloyd catheter with recurrent urinary tract infection, POA. Likely secondary to chronic Lloyd catheter Urine culture Enterococcus faecalis, nonfermenter species completed antibiotic course this admission (6) DM type 2 (diabetes mellitus, type 2): Plan: Controlled as inpatient, cont current insulin regimen. (7) Anticoagulated on Coumadin: Plan: H/O PE and DVT INR 1.7 Coumadin held for now in light of head injury, subgaleal hematoma Per discussion with [facility] neurosurgeon, hold Coumadin for at least 3 days, today is the third day INR 1.7 Discussed case in detail and at length with ham curer Dr. Gaines Recommend starting Lovenox 100 mg subcutaneous every 12 for DVT prophylaxis today if okay with neurosurgeon Discussed with neurosurgeon, he is okay with starting Lovenox 100 mg subcutaneous every 12 hours for DVT prophylaxis and patient stable resume Coumadin tomorrow with Lovenox for DVT prophylaxis as necessary 08/02/2021 Please refer to #1 for anticoagulation management Discussed with patient in detail at length, he is agreeable, comfortable plan of care (8) HTN (hypertension): Plan: controlled, cont current therapy. (9) Hematochezia: Plan: Bright red blood per rectum reported earlier in admisison, which has now resolved. H/H has remained stable. Follow-up with GI as an outpatient (10) Morbid obesity: Plan: Continued to recommend Weight loss. (11) Right knee pain: Plan: Per previous attending note: Complaint right knee pain following a pop earlier this admission. Xray revealed no acute fracture. There is no clear abnormality on exam and patient is not reporting pain and is reporting that he can ambulate well around the room. No further investigation. Generalized knee pain now being reported as "compensation from avoiding pain in other joints" --one dose Toradol given above. Would not consistently use NSAIDs in setting of coumadin use to avoid bleeding risk. (12) DVT prophylaxis: Plan: Lovenox twice daily (13) medication error Patient service excellence community service representative Usman, communicated with patient Dispo-awaiting transfer to [facility] plan of care discussed with patient in detail and at length all questions answered he is understanding, agreeable, comfortable with the plan of care Patient expressed gratitude to me with care provided Admission and Anticipated Discharge Date Admission Date: July 05, 2021 Subjective Follow-up for diastolic CHF, COPD, syncope, status post fall, subgaleal hematoma, etc. Seen with ALEXANDER Mcmullen at the bedside throughout all encounter Seen sitting up in bed, comfortable, not in distress, in good spirits Pleasant, joking at times States he still has left upper arm pain, same as yesterday Relieved by pain medication Pain over the right forehead about the same, no change in vision, dizziness, nausea or vomiting, no new focal neurologic deficits No chest pain, shortness of breath, palpitations No abdominal pain, nausea vomiting Reports some pain on the left anterior clavicle area No other symptoms No other concerns Review of Systems Review of Systems: all noted and negative except for above Physical Exam Physical Exam: General- oriented x 3, not in distress, speaks in sentences with no effort or accessory muscle use Head-hematoma on the right forehead above the eyebrow continues to improve No edema, hematoma feeding, no tenderness Eyes-periorbital hematoma on the right eye, full EOMs, no conjunctival hemorrhage, anicteric Oral-no tonsillar edema or exudates, no thrush Neck- no JVD Lungs- clear breath sounds bilaterally, no crackles or wheezing auscultated Heart- normal rate, regular rhythm; no murmurs Chest-erythema under the right breast skin fold, improving, no discharge, affected area continues to heal more No edema, hematoma, tenderness on the left clavicular area Abdomen- normal bowel sounds, nondistended, soft, nontender Urinary catheter in place-yellow urine Extremities- no pretibial edema, no calf tenderness Neuro- alert, oriented x 3; no gross focal neurologic deficits Skin- warm & dry Results & Data Results & Data ([facility]) Vital Signs (Past 12 Hours) Vital Signs Temp Pulse Pulse Resp BP Pulse Ox 08/02/21 11:45 36.8 C 59 L 16 114/56 L 94 08/02/21 10:46 59 L 08/02/21 08:45 36.9 C 68 18 130/63 95 08/02/21 05:11 57 L all noted and reviewed including below
--- NOTE | 2021-08-02 15:51 | XRay Report ---
XR ribs LT min 2V w CXR1V CLINICAL HISTORY: collar bone/upper ribs pain, evaluate for fracture. COMPARISON STUDY: Portable chest from 07/28/2021 TECHNIQUE: Frontal view of the chest. Left rib series is performed. FINDINGS: Single frontal view of the chest demonstrates the cardiomediastinal silhouette to be within normal li mits. The lungs are clear of acute infiltrates. There is no evidence for pleural effusion. There is n o evidence for vascular congestion. There is evidence for old healed fracture of the midshaft of the clavicle with posttraumatic deformity present. Multiple views of the ribs demonstrate no evidence for displaced fracture. IMPRESSION: No acute chest disease. No evidence for rib fracture. Old, healed left clavicular fractur e. ACT 112: Negative or not required by law. Electronically signed by: Sandip Chawla M.D. 08/02/2021 3:50 PM
[2021-08-02] MEDS ORDERED: WARFARIN SOD 7.5 MG TAB PO ONE (16:00)
[2021-08-02] MEDS: ONDANSETRON INJ 2 MG/ML 2 ML VIAL IV PRN (16:57)
[2021-08-02] MEDS: MELATONIN 3 MG TAB PO PRN (20:56)
[2021-08-02] MEDS: LORazepam 0.5 MG TAB PO PRN (20:57)
[2021-08-02] MEDS: INSULIN GLARGINE 100 UNIT/ML VIAL SC SCH (21:07)
[2021-08-03] MEDS: traMADol HCL 50 MG TABLET PO PRN ×5 (01:13→21:24)
[2021-08-03] MEDS: ACETAMINOPHEN 1,000 MG/100 ML VIAL IV PRN ×3 (06:09→22:43)
[2021-08-03 06:14] LABS: Basophils # (auto) 0.04 K/uL (0-0.2); Basophils % (auto) 0.4 %; Eosinophils # (auto) 0.61 K/uL (0-0.5); Eosinophils % (auto) 5.8 %; Hematocrit (blood only) 40.4 % (42-52); Hemoglobin 12.7 g/dL (14.0-18.0); Immature Granulocytes # (auto) 0.02 K/uL (0.00-0.02); Immature Granulocytes % (auto) 0.2 %; Lymphocytes # (auto) 3.38 K/uL (1.2-3.4); Lymphocytes % (auto) 32.1 %; Mean Corpuscular Hemoglobin 26.8 pg (25-34); Mean Corpuscular Hgb Conc 31.4 g/dL (32-36); Mean Corpuscular Volume 85.2 fL (80-100); Monocytes # (auto) 0.82 K/uL (0.11-0.59); Monocytes % (auto) 7.8 %; Neutrophils # (auto) 5.67 K/uL (1.4-6.5); Neutrophils % (auto) 53.7 %; Platelet Count 224 K/uL (130-400); RDW Coefficient of Variation 17.2 % (11.5-14.5); RDW Standard Deviation 53.9 fL (36.4-46.3); Red Blood Count 4.74 M/uL (4.7-6.1); White Blood Count 10.54 K/uL (4.8-10.8)
[2021-08-03] MEDS: PANTOprazole 40 MG TAB PO SCH (06:14)
[2021-08-03 06:29] LABS: INR 1.2 (0.9-1.1); Prothrombin Time 11.9 Seconds (9.0-12.0)
[2021-08-03 06:52] LABS: BUN Creatinine Ratio 16.4 (10-20); Calcium 9.3 mg/dl (8.5-10.1); Creatinine Clr Calc Pharmacy 125.9 ml/min; Est GFR (African American) 75.3 ml/min; Potassium 3.9 mmol/L (3.5-5.1)
[2021-08-03] MEDS: INSULIN ASPART 100 UNITS/ML 3 ML PEN SC SCH ×4 (09:05→21:34)
[2021-08-03] MEDS: buprenorphine HCL 8 MG SUBL SL SCH ×3 (09:06→21:21)
[2021-08-03] MEDS: DOXYCYCLINE HYCLATE 100 MG CAP PO SCH ×2 (09:11→21:20)
[2021-08-03] MEDS: FAMOTIDINE 20 MG TAB PO SCH (09:12)
[2021-08-03] MEDS: FLUTICASONE PROPIONATE NA SPR 16 GM BTL SCH (09:13)
[2021-08-03] MEDS: FINASTERIDE 5 MG TAB PO SCH (09:13)
[2021-08-03] MEDS: FLUTICASONE/VILANTEROL 100/25MCG 14 PUFFS/INHALER INH SCH (09:13)
[2021-08-03] MEDS: FOLIC ACID 1 MG TAB PO SCH (09:14)
[2021-08-03] MEDS: GABAPENTIN 800 MG TAB PO SCH ×3 (09:14→21:20)
[2021-08-03] MEDS: FUROSEMIDE 40 MG TAB PO SCH (09:14)
[2021-08-03] MEDS: guaiFENesin 600 MG TABCR PO SCH ×2 (09:15→21:18)
[2021-08-03] MEDS: ADVANCED PROBIOTIC 1250 MG CAPSULE PO SCH ×3 (09:15→21:20)
[2021-08-03] MEDS: POLYETHYLENE (MIRALAX) 17 GM PACK PO SCH (09:16)
[2021-08-03] MEDS: TAMSULOSIN HCL 0.4 MG CAP PO SCH (09:16)
[2021-08-03] MEDS: NICOTINE 21 MG/24 HR TDSY TD SCH (09:16)
[2021-08-03] MEDS: NYSTATIN POWDER 15GM BTL EXT SCH ×2 (09:16→21:21)
[2021-08-03] MEDS: UMECLIDINIUM BROMIDE 62.5MCG/BLISTER 7 PUFFS/INHALER INH SCH (09:17)
[2021-08-03] MEDS: METOPROLOL SUCC 25MG EXT REL TAB PO SCH ×2 (09:18→21:19)
[2021-08-03] MEDS: DOCUSATE SODIUM 100 MG CAP PO SCH ×2 (09:37→21:21)
[2021-08-03] MEDS: DULoxetine HCL 60 MG CAP PO SCH (11:12)
[2021-08-03] MEDS: ATORVASTATIN 40 MG TAB PO SCH (11:13)
[2021-08-03] MEDS: ENOXAPARIN 100 MG/1ML SYR SQ SCH ×2 (11:13→23:20)
[2021-08-03] MEDS: ONDANSETRON INJ 2 MG/ML 2 ML VIAL IV PRN ×2 (15:41→23:30)
[2021-08-03] MEDS ORDERED: WARFARIN SOD 7.5 MG TAB PO ONE (16:00)
--- NOTE | 2021-08-03 16:10 | Hospitalist Progress Note ---
Date of Service August 03, 2021 Assessment & Plan (1) Syncope: Plan: (1) Syncope: Plan: Status post fall Subgaleal hemorrhage Possible recurrent syncope Occurred while patient was at the commode 07/29/2021 No prodrome Patient and his significant other reports similar episodes at home Patient significant other reports possible seizure-like presentation when it happens No confusion after episodes Repeat CT head: No acute intracerebral pathology. Compared to the previous examination, there is now a small to moderate-sized subgaleal hematoma anterior to the forehead. There is again evidence for sinusitis. Check orthostatic vital signs: Pending EKG: normal sinus rhythm, no acute ischemia or infarct Troponin: Negative x3 Echocardiogram: EF 60 to 65%, right ventricular systolic function is qualitatively normal, mild tricuspid regurgitation, Doppler findings do not suggest pulmonary hypertension Compared to previous study, there is no significant change EEG: Normal appearing awake/drowsy EEG Discussed with neurologist Dr. Dunham Syncope likely secondary to vasovagal etiology Recommends brain MRI with seizure protocol, CT angiogram head and neck- MRI cannot be performed due to patient's body habitus, CT angiogram was not completed yesterday as patient got stuck in the machine during the process Recommend discussion with neurosurgery regarding subgaleal hemorrhage Discussed with neurosurgeon on-call at [facility] Dr. Nova, recommend to hold Coumadin for 3 days since time of fall, if with no clinical worsening, may resume Coumadin Recommend cardiology service evaluation, discussed case with spot checker Dr. Penn-syncope felt to be secondary to vasovagal episode 08/03/2021 Remains neurologically stable No recurrence of presyncope, syncope Creatinine stable, BP stable, continue Lasix 40 mg twice daily INR 1.2, Coumadin 15 mg p.o. today Left upper extremity pain CT of the shoulder, humerus, elbow, forearm: No fractures Orthopedic service consulted-likely secondary to contusion Pain management reconsulted as patient requesting additional pain medication Discussed with AURELIA Evans in detail No additional narcotic medication recommended at this pointpatient is at high risk for developing adverse effects with additional narcotic medication They are okay with one-time additional narcotic before patient undergoes procedures/imaging studies For now, recommend to continue with Subutex, tramadol, as needed IV Tylenol This was discussed and detail and at length with patient, he expressed frustration but was accepting with this plan of care 08/03/2021 left upper extremity Doppler ultrasound: No DVT Rib x-ray: No acute fractures Rob wrap as per pain management service recommendation Continue Subutex, tramadol, IV Tylenol Requesting additional IV narcotics, declined at this time, patient a greeable with plan of care (2) Acute on chronic diastolic heart failure: Plan: Presented with about 20 pounds weight gain in a few days with associated short ness of breath and increasing leg swelling Noted to have chest x-ray evidence of CHF Patient given IV Lasix with good response was on Lasix 40 mg twice daily and spironolactone 25 milligrams daily. Creatinine improved Continue Lasix 40 mg twice daily Monitor closely (3) Chronic pain disorder: Plan: Management per #1 (4) COPD exacerbation: Plan: Chronic respiratory failure with hypoxia--uses 4 L at bedtime and intermittently H/O COPD and felt to have a possible mild exacerbation on admission. Stable, no wheezing, on room air (5) Urinary tract infection associated with catheterization of urinary tract: Plan: H/O Indwelling Lloyd catheter with recurrent urinary tract infection, POA. Likely secondary to chronic Lloyd catheter Urine culture Enterococcus faecalis, nonfermenter species completed antibiotic course this admission (6) DM type 2 (diabetes mellitus, type 2): Plan: Controlled as inpatient, cont current insulin regimen. (7) Anticoagulated on Coumadin: Plan: H/O PE and DVT INR 1.7 Coumadin held for now in light of head injury, subgaleal hematoma Per discussion with [facility] neurosurgeon, hold Coumadin for at least 3 days, today is the third day INR 1.7 Discussed case in detail and at length with dumper Dr. Gaines Recommend starting Lovenox 100 mg subcutaneous every 12 for DVT prophylaxis today if okay with neurosurgeon Discussed with neurosurgeon, he is okay with starting Lovenox 100 mg subcutaneous every 12 hours for DVT prophylaxis and patient stable resume Coumadin tomorrow with Lovenox for DVT prophylaxis as necessary 08/03/2021 Please refer to #1 for anticoagulation management Discussed with patient in detail at length, he is agreeable, comfortable plan of care (8) HTN (hypertension): Plan: controlled, cont current therapy. (9) Hematochezia: Plan: Bright red blood per rectum reported earlier in admisison, which has now resolved. H/H has remained stable. Follow-up with GI as an outpatient (10) Morbid obesity: Plan: Continued to recommend Weight loss. (11) Right knee pain: Plan: Per previous attending note: Complaint right knee pain following a pop earlier this admission. Xray revealed no acute fracture. There is no clear abnormality on exam and patient is not reporting pain and is reporting that he can ambulate well around the room. No further investigation. Generalized knee pain now being reported as "compensation from avoiding pain in other joints" --one dose Toradol given above. Would not consistently use NSAIDs in setting of coumadin use to avoid bleeding risk. (12) DVT prophylaxis: Plan: Lovenox twice daily (13) medication error Patient service excellence patient relations representative Usman, communicated with patient Dispo-awaiting transfer to [facility] plan of care discussed with patient in detail and at length all questions answered he is understanding, agreeable, comfortable with the plan of care Patient expressed gratitude to me again with care provided Admission and Anticipated Discharge Date Admission Date: July 05, 2021 Subjective Follow-up for CHF diastolic type, COPD, syncopal episode, fall, etc. Seen with ALEXANDER Mcmullen at the bedside throughout whole encounter Patient seen sitting up in wheelchair, not in distress, comfortable, in good spirits Reports he feels about the same as yesterday Still having pain over the left upper arm-analgesic regimen providing relief Denies headache, dizziness, change with vision, no focal neurologic deficits Denies any bleeding No shortness of breath, palpitations, dizziness, lightheadedness, presyncope /syncope Reports some mild sore throat No other symptoms Review of Systems Review of Systems: all noted and negative except for above Physical Exam Physical Exam: General- oriented x 3, not in distress, speaks in sentences with no effort or accessory muscle use Head-hematoma on the right forehead area, above the eyebrow, flat, no edema, improving Right periorbital hematoma about the same as yesterday No conjunctival hemorrhage Eyes- anicteric Neck- no JVD Lungs- clear breath sounds, no wheezing, no crackles bilaterally Heart- normal rate, regular rhythm; no murmurs Chest-right breast skin fold, erythema improving, dry, no discharge, no tenderness Abdomen- normal bowel sounds, nondistended, soft, nontender Lloyd catheter in place with yellow urine Extremities-trace pretibial edema, no calf tenderness Neuro- alert, oriented x 3; no gross focal neurologic deficits Skin- warm & dry Results & Data Results & Data ([facility]) Vital Signs (Past 12 Hours) Vital Signs Temp Pulse Pulse Resp BP Pulse Ox 08/03/21 10:15 58 L 08/03/21 09:00 36.8 C 61 13 121/45 L 95 all noted and reviewed including below
[2021-08-03] MEDS: NYSTATIN SUSP 500,000 U/5 ML UDC PO SCH ×2 (17:02→21:21)
[2021-08-03] MEDS: LORazepam 0.5 MG TAB PO PRN (21:23)
[2021-08-03] MEDS: MELATONIN 3 MG TAB PO PRN (21:23)
[2021-08-03] MEDS: INSULIN GLARGINE 100 UNIT/ML VIAL SC SCH (21:30)
[2021-08-04] MEDS: traMADol HCL 50 MG TABLET PO PRN ×5 (02:38→22:50)
[2021-08-04] MEDS: PANTOprazole 40 MG TAB PO SCH (06:25)
[2021-08-04 07:38] LABS: Basophils # (auto) 0.03 K/uL (0-0.2); Basophils % (auto) 0.3 %; Eosinophils # (auto) 0.56 K/uL (0-0.5); Eosinophils % (auto) 5.7 %; Hematocrit (blood only) 40.4 % (42-52); Hemoglobin 12.5 g/dL (14.0-18.0); Immature Granulocytes # (auto) 0.01 K/uL (0.00-0.02); Immature Granulocytes % (auto) 0.1 %; Lymphocytes # (auto) 2.88 K/uL (1.2-3.4); Lymphocytes % (auto) 29.4 %; Mean Corpuscular Hemoglobin 26.5 pg (25-34); Mean Corpuscular Hgb Conc 30.9 g/dL (32-36); Mean Corpuscular Volume 85.6 fL (80-100); Mean Platelet Volume 10.6 fL (7.4-10.4); Monocytes # (auto) 0.89 K/uL (0.11-0.59); Monocytes % (auto) 9.1 %; Neutrophils # (auto) 5.42 K/uL (1.4-6.5); Neutrophils % (auto) 55.4 %; Platelet Count 210 K/uL (130-400); RDW Coefficient of Variation 17.4 % (11.5-14.5); RDW Standard Deviation 54.6 fL (36.4-46.3); Red Blood Count 4.72 M/uL (4.7-6.1); White Blood Count 9.79 K/uL (4.8-10.8)
[2021-08-04] MEDS: ACETAMINOPHEN 1,000 MG/100 ML VIAL IV PRN ×3 (07:43→23:54)
[2021-08-04] MEDS ORDERED: ALBUTEROL HFA 8 GM INHALER INH PRN (07:53)
[2021-08-04 07:55] LABS: INR 1.9 (0.9-1.1); Prothrombin Time 18.5 Seconds (9.0-12.0)
[2021-08-04] MEDS ORDERED: NYSTATIN POWDER 15GM BTL EXT PRN (07:55)
[2021-08-04] MEDS ORDERED: NITROGLYCERIN SL 0.4 MG/TAB TAB SL PRN (07:56)
[2021-08-04] MEDS ORDERED: POLYETHYLENE (MIRALAX) 17 GM PACK PO PRN (07:58)
[2021-08-04] MEDS ORDERED: ALBUT/IPRATROP 3MG/0.5MG NEB 3 ML VIAL INH PRN (07:58)
[2021-08-04] MEDS ORDERED: ONDANSETRON 4 MG OD TAB PO PRN (07:59)
[2021-08-04] MEDS ORDERED: SENNA 8.6 MG TAB PO PRN (07:59)
[2021-08-04 08:12] LABS: BUN Creatinine Ratio 15.9 (10-20); Calcium 9.4 mg/dl (8.5-10.1); Est GFR (African American) 77.5 ml/min; Est GFR (Non-African American) 66.9 ml/min; Potassium 4.2 mmol/L (3.5-5.1)
[2021-08-04] MEDS: FLUTICASONE/VILANTEROL 100/25MCG 14 PUFFS/INHALER INH SCH (09:08)
[2021-08-04] MEDS: UMECLIDINIUM BROMIDE 62.5MCG/BLISTER 7 PUFFS/INHALER INH SCH (09:08)
[2021-08-04] MEDS: FLUTICASONE PROPIONATE NA SPR 16 GM BTL SCH (09:11)
[2021-08-04] MEDS: NYSTATIN POWDER 15GM BTL EXT SCH ×2 (09:12→20:34)
[2021-08-04] MEDS: NYSTATIN SUSP 500,000 U/5 ML UDC PO SCH ×4 (09:13→20:30)
[2021-08-04] MEDS: guaiFENesin 600 MG TABCR PO SCH ×2 (09:13→20:32)
[2021-08-04] MEDS: DOXYCYCLINE HYCLATE 100 MG CAP PO SCH ×2 (09:13→20:33)
[2021-08-04] MEDS: FUROSEMIDE 40 MG TAB PO SCH (09:13)
[2021-08-04] MEDS: POLYETHYLENE (MIRALAX) 17 GM PACK PO SCH (09:14)
[2021-08-04] MEDS: INSULIN ASPART 100 UNITS/ML 3 ML PEN SC SCH ×4 (09:14→20:31)
[2021-08-04] MEDS: DOCUSATE SODIUM 100 MG CAP PO SCH ×2 (09:20→20:37)
[2021-08-04] MEDS: LORazepam 0.5 MG TAB PO PRN ×2 (09:20→20:30)
[2021-08-04] MEDS: buprenorphine HCL 8 MG SUBL SL SCH ×3 (09:20→20:28)
[2021-08-04] MEDS: GABAPENTIN 800 MG TAB PO SCH ×3 (11:08→20:31)
[2021-08-04] MEDS: FAMOTIDINE 20 MG TAB PO SCH (11:08)
[2021-08-04] MEDS: FOLIC ACID 1 MG TAB PO SCH (11:08)
[2021-08-04] MEDS: DULoxetine HCL 60 MG CAP PO SCH (11:08)
[2021-08-04] MEDS: TAMSULOSIN HCL 0.4 MG CAP PO SCH (11:08)
[2021-08-04] MEDS: NICOTINE 21 MG/24 HR TDSY TD SCH (11:08)
[2021-08-04] MEDS: FINASTERIDE 5 MG TAB PO SCH (11:08)
[2021-08-04] MEDS: METOPROLOL SUCC 25MG EXT REL TAB PO SCH ×2 (11:45→20:33)
[2021-08-04] MEDS: ONDANSETRON INJ 2 MG/ML 2 ML VIAL IV PRN ×2 (11:46→23:53)
[2021-08-04] MEDS: ATORVASTATIN 40 MG TAB PO SCH (12:11)
[2021-08-04] MEDS: ENOXAPARIN 100 MG/1ML SYR SQ SCH ×2 (12:11→23:57)
[2021-08-04] MEDS: ADVANCED PROBIOTIC 1250 MG CAPSULE PO SCH ×3 (12:11→20:35)
--- NOTE | 2021-08-04 14:44 | Hospitalist Progress Note ---
Date of Service August 04, 2021 Assessment & Plan (1) Syncope: Plan: (1) Syncope: Plan: Status post fall Subgaleal hemorrhage Possible recurrent syncope likely vasovagal etiology Syncopal episode occurred while patient was at the commode 07/29/2021 No prodrome Patient and his significant other reports similar episodes at home Patient significant other reports possible seizure-like presentation when it happens No confusion after episodes Repeat CT head: No acute intracerebral pathology. Compared to the previous examination, there is now a small to moderate-sized subgaleal hematoma anterior to the forehead. There is again evidence for sinusitis. EKG: normal sinus rhythm, no acute ischemia or infarct Troponin: Negative x3 Echocardiogram: EF 60 to 65%, right ventricular systolic function is qualitatively normal, mild tricuspid regurgitation, Doppler findings do not suggest pulmonary hypertension Compared to previous study, there is no significant change EEG: Normal appearing awake/drowsy EEG Discussed with neurologist Dr. Dunham Syncope likely secondary to vasovagal etiology Recommends brain MRI with seizure protocol, CT angiogram head and neck- MRI cannot be performed due to patient's body habitus, CT angiogram was not completed yesterday as patient got stuck in the machine during the process Recommend discussion with neurosurgery regarding subgaleal hemorrhage Discussed with neurosurgeon on-call at [facility] Dr. Nova, recommend to hold Coumadin for 3 days since time of fall, if with no clinical worsening, may resume Coumadin Recommend cardiology service evaluation, discussed case with blind cleaner Dr. Penn-syncope felt to be secondary to vasovagal episode, Imdur held 08/04/2021 Remains neurologically stable No recurrence of presyncope, syncope Creatinine stable, BP stable, continue Lasix 40 mg daily for now as patient seems to be euvolemic INR 1.9, Coumadin 10 mg p.o. today No arrhythmia per telemetry monitoring Left upper extremity pain CT of the shoulder, humerus, elbow, forearm: No fractures Orthopedic service consulted-likely secondary to contusion Pain management reconsulted as patient requesting additional pain medication Discussed with AURELIA Evans in detail No additional narcotic medication recommended at this pointpatient is at high risk for developing adverse effects with additional narcotic medication They are okay with one-time additional narcotic before patient undergoes procedures/imaging studies For now, recommend to continue with Subutex, tramadol, as needed IV Tylenol This was discussed and detail and at length with patient, he expressed frustration but was accepting with this plan of care 08/04/2021 left upper extremity Doppler ultrasound: No DVT Rib x-ray: No acute fractures Rob wrap as per pain management service recommendation Continue Subutex, tramadol, IV Tylenol Requesting additional IV narcotic, declined at this time, patient agreeable with plan of care Reevaluation by orthopedic service requested Orthotic specialist consulted for boot placement on the right foot (2) Acute on chronic diastolic heart failure: Plan: Presented with about 20 pounds weight gain in a few days with associated shortness of breath and increasing leg swelling Noted to have chest x-ray evidence of CHF Patient given IV Lasix with good response was on Lasix 40 mg twice daily and spironolactone 25 milligrams daily. Creatinine improved Continue Lasix 40 mg daily for now Monitor closely (3) Chronic pain disorder: Plan: Management per #1 (4) COPD exacerbation: Plan: Chronic respiratory failure with hypoxia--uses 4 L at bedtime and intermittently H/O COPD and felt to have a possible mild exacerbation on admission. Stable, no wheezing, on room air (5) Urinary tract infection associated with catheterization of urinary tract: Plan: H/O Indwelling Lloyd catheter with recurrent urinary tract infection, POA. Likely secondary to chronic Lloyd catheter Urine culture Enterococcus faecalis, nonfermenter species completed antibiotic course this admission (6) DM type 2 (diabetes mellitus, type 2): Plan: Controlled as inpatient, cont current insulin regimen. (7) Anticoagulated on Coumadin: Plan: H/O PE and DVT INR 1.7 Coumadin held for now in light of head injury, subgaleal hematoma Per discussion with [facility] neurosurgeon, hold Coumadin for at least 3 days, today is the third day INR 1.7 Discussed case in detail and at length with patent litigation associate Dr. Gaines Recommend starting Lovenox 100 mg subcutaneous every 12 for DVT prophylaxis today if okay with neurosurgeon Discussed with neurosurgeon, he is okay with starting Lovenox 100 mg subcutaneous every 12 hours for DVT prophylaxis and patient stable resume Coumadin tomorrow with Lovenox for DVT prophylaxis as necessary 08/04/2021 Please refer to #1 for anticoagulation management Discussed with patient in detail at length, he is agreeable, comfortable plan of care (8) HTN (hypertension): Plan: controlled, cont current therapy. (9) Hematochezia: Plan: Bright red blood per rectum reported earlier in admisison, which has now resolved. H/H has remained stable. Follow-up with GI as an outpatient (10) Morbid obesity: Plan: Continued to recommend Weight loss. (11) Right knee pain: Plan: Per previous attending note: Complaint right knee pain following a pop earlier this admission. Xray revealed no acute fracture. There is no clear abnormality on exam and patient is not reporting pain and is reporting that he can ambulate well around the room. No further investigation. Generalized knee pain now being reported as "compensation from avoiding pain in other joints" --one dose Toradol given above. Would not consistently use NSAIDs in setting of coumadin use to avoid bleeding risk. (12) DVT prophylaxis: Plan: Lovenox twice daily (13) medication error Patient service excellence warehouse representative Usman, communicated with patient Dispo-awaiting transfer to [facility] plan of care discussed with patient in detail and at length all questions answered he is understanding, agreeable, comfortable with the plan of care Patient expressed gratitude to me again with care provided Admission and Anticipated Discharge Date Admission Date: July 05, 2021 Subjective Follow-up for CHF diastolic type, COPD, syncopal episode, status post fall, etc. Seen with ALEXANDER Wild at bedside throughout whole encounter Sitting up in bed, comfortable, not in distress Pleasant States he feels about the same as yesterday Still has pain in the left upper extremity Denies headache, has this discomfort over the hematoma area but about the same, no change in vision, nausea vomiting, any focal neurologic deficits No shortness of breath, chest pain, palpitations, dizziness No syncope presyncope No other symptoms Review of Systems Review of Systems: all noted and negative except for above Physical Exam Physical Exam: General- oriented x 3, not in distress, speaks in sentences with no effort or accessory muscle use Head-hematoma of the right forehead, above the eyebrow improving Right periorbital hematoma: About the same as yesterday Eyes-full EOMs, no conjunctival hemorrhage, anicteric Neck- no JVD Lungs- clear to auscultation bilaterally No crackles, no wheezing Heart- normal rate, regular rhythm; no murmurs Chest-right breast skin fold: Erythema mostly resolved, no tenderness or warmth Abdomen- normal bowel sounds, nondistended, soft, nontender Extremities- no pretibial edema, no calf tenderness Lloyd catheter in place-yellow urine Neuro- alert, oriented x 3; no gross focal neurologic deficits Skin- warm & dry Results & Data Results & Data ([facility]) Vital Signs (Past 12 Hours) Vital Signs Temp Pulse Pulse Resp BP Pulse Ox 08/04/21 12:00 36.5 C 59 L 20 104/64 96 08/04/21 09:00 60 08/04/21 07:57 36.5 C 67 20 121/68 93 all noted and reviewed including below
[2021-08-04] MEDS ORDERED: WARFARIN SOD 10 MG TAB PO ONE (16:00)
[2021-08-04] MEDS: MELATONIN 3 MG TAB PO PRN (20:28)
[2021-08-04] MEDS: INSULIN GLARGINE 100 UNIT/ML VIAL SC SCH (20:36)
[2021-08-05] MEDS: traMADol HCL 50 MG TABLET PO PRN ×4 (04:06→18:49)
[2021-08-05] MEDS: UMECLIDINIUM BROMIDE 62.5MCG/BLISTER 7 PUFFS/INHALER INH SCH (07:58)
[2021-08-05] MEDS: FLUTICASONE PROPIONATE NA SPR 16 GM BTL SCH (07:58)
[2021-08-05] MEDS: FLUTICASONE/VILANTEROL 100/25MCG 14 PUFFS/INHALER INH SCH (07:58)
[2021-08-05] MEDS: NYSTATIN POWDER 15GM BTL EXT SCH ×2 (07:58→20:58)
[2021-08-05] MEDS: NICOTINE 21 MG/24 HR TDSY TD SCH (07:59)
[2021-08-05] MEDS: DOCUSATE SODIUM 100 MG CAP PO SCH ×2 (08:00→20:58)
[2021-08-05] MEDS: buprenorphine HCL 8 MG SUBL SL SCH ×3 (08:00→21:09)
[2021-08-05] MEDS: DULoxetine HCL 60 MG CAP PO SCH (08:01)
[2021-08-05] MEDS: FINASTERIDE 5 MG TAB PO SCH (08:01)
[2021-08-05] MEDS: FAMOTIDINE 20 MG TAB PO SCH (08:01)
[2021-08-05] MEDS: DOXYCYCLINE HYCLATE 100 MG CAP PO SCH (08:01)
[2021-08-05 08:02] LABS: Creatinine Clr Calc Pharmacy 153.6 ml/min; Est GFR (African American) 95.9 ml/min; Est GFR (Non-African American) 82.7 ml/min; Potassium 4.1 mmol/L (3.5-5.1)
[2021-08-05] MEDS: guaiFENesin 600 MG TABCR PO SCH ×2 (08:02→20:47)
[2021-08-05] MEDS: FUROSEMIDE 40 MG TAB PO SCH ×2 (08:02→18:23)
[2021-08-05] MEDS: GABAPENTIN 800 MG TAB PO SCH ×3 (08:02→20:48)
[2021-08-05] MEDS: FOLIC ACID 1 MG TAB PO SCH (08:02)
[2021-08-05] MEDS: METOPROLOL SUCC 25MG EXT REL TAB PO SCH ×2 (08:03→20:48)
[2021-08-05] MEDS: ADVANCED PROBIOTIC 1250 MG CAPSULE PO SCH ×3 (08:03→20:49)
[2021-08-05] MEDS: NYSTATIN SUSP 500,000 U/5 ML UDC PO SCH ×4 (08:03→20:57)
[2021-08-05] MEDS: PANTOprazole 40 MG TAB PO SCH (08:04)
[2021-08-05] MEDS: ACETAMINOPHEN 1,000 MG/100 ML VIAL IV PRN ×2 (08:04→16:20)
[2021-08-05] MEDS: POLYETHYLENE (MIRALAX) 17 GM PACK PO SCH (08:04)
[2021-08-05] MEDS: TAMSULOSIN HCL 0.4 MG CAP PO SCH (08:04)
[2021-08-05] MEDS: INSULIN ASPART 100 UNITS/ML 3 ML PEN SC SCH ×4 (08:12→20:50)
[2021-08-05] MEDS: ONDANSETRON INJ 2 MG/ML 2 ML VIAL IV PRN ×2 (10:48→18:25)
[2021-08-05] MEDS: ATORVASTATIN 40 MG TAB PO SCH (11:59)
[2021-08-05] MEDS: ENOXAPARIN 100 MG/1ML SYR SQ SCH (11:59)
--- NOTE | 2021-08-05 14:38 | Progress Notes ---
I was asked to see the patient today. The patient had a fall off the toilet with some type of seizur e activity with now having left arm and upper extremity, shoulder, elbow and hand pain, almost radicu lar in nature. X-rays have been reviewed today. No evidence of any type of fracture is noted. CT s can of the shoulder, elbow, wrist, forearm reviewed. No fracture. No other soft tissue or other bon y or osseous abnormalities noted. We would recommend getting an x-ray of cervical spine as well as a n MRI of the cervical spine, rule out cervical radiculopathy. We will follow with you. Job ID: [id number]
[2021-08-05 15:54] LABS: INR 3.6 (0.9-1.1); Prothrombin Time 33.2 Seconds (9.0-12.0)
--- NOTE | 2021-08-05 17:36 | Hospitalist Progress Note ---
Date of Service August 05, 2021 Assessment & Plan (1) Syncope: Plan: (1) Syncope: Plan: Status post fall Subgaleal hemorrhage Possible recurrent syncope likely vasovagal etiology Syncopal episode occurred while patient was at the commode 07/29/2021 No prodrome Patient and his significant other reports similar episodes at home Patient significant other reports possible seizure-like presentation when it happens No confusion after episodes Repeat CT head: No acute intracerebral pathology. Compared to the previous examination, there is now a small to moderate-sized subgaleal hematoma anterior to the forehead. There is again evidence for sinusitis. EKG: normal sinus rhythm, no acute ischemia or infarct Troponin: Negative x3 Echocardiogram: EF 60 to 65%, right ventricular systolic function is qualitatively normal, mild tricuspid regurgitation, Doppler findings do not suggest pulmonary hypertension Compared to previous study, there is no significant change EEG: Normal appearing awake/drowsy EEG Discussed with neurologist Dr. Dunham Syncope likely secondary to vasovagal etiology Recommends brain MRI with seizure protocol, CT angiogram head and neck- MRI cannot be performed due to patient's body habitus, CT angiogram was not completed yesterday as patient got stuck in the machine during the process Recommend discussion with neurosurgery regarding subgaleal hemorrhage Discussed with neurosurgeon on-call at [facility] Dr. Nova, recommend to hold Coumadin for 3 days since time of fall, if with no clinical worsening, may resume Coumadin Recommend cardiology service evaluation, discussed case with cooling pan tender Dr. Penn-syncope felt to be secondary to vasovagal episode, Imdur held 08/05/2021 Remains neurologically stable No recurrence of presyncope, syncope Creatinine stable, BP stable, resume Lasix 20 mg p.o. twice daily INR 3.6, hold Coumadin Monitor INR daily No arrhythmia per telemetry monitoring Left upper extremity pain CT of the shoulder, humerus, elbow, forearm: No fractures Orthopedic service consulted-likely secondary to contusion Pain management reconsulted as patient requesting additional pain medication Discussed with AURELIA Evans in detail No additional narcotic medication recommended at this pointpatient is at high risk for developing adverse effects with additional narcotic medication They are okay with one-time additional narcotic before patient undergoes procedures/imaging studies For now, recommend to continue with Subutex, tramadol, as needed IV Tylenol This was discussed and detail and at length with patient, he expressed frustration but was accepting with this plan of care 08/05/2021 left upper extremity Doppler ultrasound: No DVT Rib x-ray: No acute fractures Rob wrap as per pain management service recommendation Continue Subutex, tramadol, IV Tylenol Reevaluation by orthopedic service requested Dr. Aguila reevaluate patient, recommend cervical spine x-ray and MRI Cervical spine x-ray ordered MRI for patients body habitus not functioning tonight, check with MRI again tomorrow Orthotic specialist consulted for boot placement on the right foot (2) Acute on chronic diastolic heart failure: Plan: Presented with about 20 pounds weight gain in a few days with associated shortness of breath and increasing leg swelling Noted to have chest x-ray evidence of CHF Patient given IV Lasix with good response was on Lasix 40 mg twice daily and spironolactone 25 milligrams daily. Creatinine improved Resume usual Lasix 40 mg twice a day now Monitor closely Right breast skin fold rash Likely secondary to fungal infection, nystatin powder Possible bacterial infection, resolved, DC doxycycline (3) Chronic pain disorder: Plan: Management per #1 (4) COPD exacerbation: Plan: Chronic respiratory failure with hypoxia--uses 4 L at bedtime and intermittently H/O COPD and felt to have a possible mild exacerbation on admission. Stable, no wheezing, on room air (5) Urinary tract infection associated with catheterization of urinary tract: Plan: H/O Indwelling Lloyd catheter with recurrent urinary tract infection, POA. Likely secondary to chronic Lloyd catheter Urine culture Enterococcus faecalis, nonfermenter species completed antibiotic course this admission (6) DM type 2 (diabetes mellitus, type 2): Plan: Controlled as inpatient, cont current insulin regimen. (7) Anticoagulated on Coumadin: Plan: H/O PE and DVT INR 1.7 Coumadin held for now in light of head injury, subgaleal hematoma Per discussion with [facility] neurosurgeon, hold Coumadin for at least 3 days, today is the third day INR 1.7 Discussed case in detail and at length with delimer Dr. Gaines Recommend starting Lovenox 100 mg subcutaneous every 12 for DVT prophylaxis today if okay with neurosurgeon Discussed with neurosurgeon, he is okay with starting Lovenox 100 mg subcutaneous every 12 hours for DVT prophylaxis and patient stable resume Coumadin tomorrow with Lovenox for DVT prophylaxis as necessary 08/05/2021 Please refer to #1 for anticoagulation management (8) HTN (hypertension): Plan: controlled, cont current therapy. (9) Hematochezia: Plan: Bright red blood per rectum reported earlier in admisison, which has now resolved. H/H has remained stable. Follow-up with GI as an outpatient (10) Morbid obesity: Plan: Continued to recommend Weight loss. (11) Right knee pain: Plan: Per previous attending note: Complaint right knee pain following a pop earlier this admission. Xray revealed no acute fracture. There is no clear abnormality on exam and patient is not reporting pain and is reporting that he can ambulate well around the room. No further investigation. Generalized knee pain now being reported as "compensation from avoiding pain in other joints" --one dose Toradol given above. Would not consistently use NSAIDs in setting of coumadin use to avoid bleeding risk. (12) DVT prophylaxis: Plan: INR supratherapeutic (13) medication error Apparently, another patient's insulin pen used on the patient Patient service excellence on board Dispo-awaiting transfer to [facility] per patient's request plan of care discussed with patient in detail and at length all questions answered he is understanding, agreeable, comfortable with the plan of care Patient expressed gratitude to me again with care provided Admission and Anticipated Discharge Date Admission Date: July 05, 2021 Subjective Follow-up for CHF, COPD, syncope, status post fall, etc. Seen with ALEXANDER Espinosa at the bedside throughout whole encounter Seen resting in bed, comfortable, sitting up, watching TV States he feels about the same as yesterday Reports left upper extremity pain about the same No headache, dizziness, change in vision, nausea vomiting, no focal neurologic deficits No other pain in his body Denies abdominal pain, nausea vomiting, fevers or chills No bleeding No other symptoms Review of Systems Review of Systems: all noted and negative except for above Physical Exam Physical Exam: General- oriented x 3, not in distress, speaks in sentences with no effort or accessory muscle use Head-hematoma on the right forehead continues to improve, no edema Eyes-right periorbital hematoma improving, anicteric Neck- no JVD Lungs- clear breath sounds bilaterally, no crackles or wheezing Heart- normal rate, regular rhythm; no murmurs Abdomen- normal bowel sounds, nondistended, soft, nontender Extremities- no pretibial edema, no calf tenderness Left upper extremity edema improved, mild, Rob wrap in place Mild lower extremity edema Neuro- alert, oriented x 3; no gross focal neurologic deficits Skin- warm & dry Results & Data Results & Data ([facility]) Vital Signs (Past 12 Hours) Vital Signs Temp Pulse Pulse Resp BP BP Pulse Ox 08/05/21 16:00 66 08/05/21 15:22 37.0 C 60 20 123/70 94 08/05/21 11:25 36.7 C 63 20 104/71 93 08/05/21 08:00 65 08/05/21 06:36 36.7 C 66 18 117/46 L 90 all noted and reviewed including below
[2021-08-05] MEDS: INSULIN GLARGINE 100 UNIT/ML VIAL SC SCH (20:51)
[2021-08-05] MEDS: LORazepam 0.5 MG TAB PO PRN (20:58)
[2021-08-05] MEDS: MELATONIN 3 MG TAB PO PRN (20:58)
[2021-08-06] MEDS: traMADol HCL 50 MG TABLET PO PRN ×5 (00:32→22:30)
[2021-08-06] MEDS: ACETAMINOPHEN 1,000 MG/100 ML VIAL IV PRN ×3 (00:32→21:37)
[2021-08-06] MEDS: PANTOprazole 40 MG TAB PO SCH (05:29)
[2021-08-06 08:16] LABS: Basophils # (auto) 0.05 K/uL (0-0.2); Basophils % (auto) 0.4 %; Eosinophils # (auto) 0.59 K/uL (0-0.5); Eosinophils % (auto) 5.2 %; Hemoglobin 12.5 g/dL (14.0-18.0); Immature Granulocytes # (auto) 0.03 K/uL (0.00-0.02); Immature Granulocytes % (auto) 0.3 %; Lymphocytes # (auto) 3.41 K/uL (1.2-3.4); Mean Corpuscular Hemoglobin 26.5 pg (25-34); Mean Corpuscular Hgb Conc 31.3 g/dL (32-36); Mean Corpuscular Volume 84.9 fL (80-100); Mean Platelet Volume 10.3 fL (7.4-10.4); Monocytes # (auto) 0.89 K/uL (0.11-0.59); Monocytes % (auto) 7.8 %; Neutrophils % (auto) 56.3 %; Platelet Count 225 K/uL (130-400); RDW Coefficient of Variation 17.6 % (11.5-14.5); RDW Standard Deviation 55.2 fL (36.4-46.3); Red Blood Count 4.71 M/uL (4.7-6.1); White Blood Count 11.37 K/uL (4.8-10.8)
[2021-08-06 08:28] LABS: INR 2.5 (0.9-1.1); Prothrombin Time 23.2 Seconds (9.0-12.0)
[2021-08-06 08:38] LABS: BUN Creatinine Ratio 16.1 (10-20); Calcium 9.4 mg/dl (8.5-10.1); Creatinine Clr Calc Pharmacy 141.6 ml/min; Est GFR (African American) 86.7 ml/min; Est GFR (Non-African American) 74.8 ml/min
[2021-08-06] MEDS: INSULIN ASPART 100 UNITS/ML 3 ML PEN SC SCH ×4 (09:22→21:54)
[2021-08-06] MEDS: DOCUSATE SODIUM 100 MG CAP PO SCH ×2 (09:24→21:51)
[2021-08-06] MEDS: FINASTERIDE 5 MG TAB PO SCH (09:24)
[2021-08-06] MEDS: DULoxetine HCL 60 MG CAP PO SCH (09:24)
[2021-08-06] MEDS: FAMOTIDINE 20 MG TAB PO SCH (09:24)
[2021-08-06] MEDS: FLUTICASONE/VILANTEROL 100/25MCG 14 PUFFS/INHALER INH SCH (09:25)
[2021-08-06] MEDS: UMECLIDINIUM BROMIDE 62.5MCG/BLISTER 7 PUFFS/INHALER INH SCH (09:25)
[2021-08-06] MEDS: FLUTICASONE PROPIONATE NA SPR 16 GM BTL SCH (09:25)
[2021-08-06] MEDS: FOLIC ACID 1 MG TAB PO SCH (09:26)
[2021-08-06] MEDS: FUROSEMIDE 40 MG TAB PO SCH ×2 (09:26→16:56)
[2021-08-06] MEDS: guaiFENesin 600 MG TABCR PO SCH ×2 (09:27→21:52)
[2021-08-06] MEDS: GABAPENTIN 800 MG TAB PO SCH ×3 (09:27→21:53)
[2021-08-06] MEDS: ADVANCED PROBIOTIC 1250 MG CAPSULE PO SCH ×3 (09:27→21:52)
[2021-08-06] MEDS: METHENAMINE HIPPURATE 1 GM TAB PO SCH (09:28)
[2021-08-06] MEDS: POLYETHYLENE (MIRALAX) 17 GM PACK PO SCH (09:30)
[2021-08-06] MEDS: NYSTATIN POWDER 15GM BTL EXT SCH ×2 (09:30→21:53)
[2021-08-06] MEDS: NICOTINE 21 MG/24 HR TDSY TD SCH (09:30)
[2021-08-06] MEDS: TAMSULOSIN HCL 0.4 MG CAP PO SCH (09:30)
[2021-08-06] MEDS: NYSTATIN SUSP 500,000 U/5 ML UDC PO SCH ×4 (09:30→21:52)
[2021-08-06] MEDS: METOPROLOL SUCC 25MG EXT REL TAB PO SCH ×2 (09:30→21:52)
[2021-08-06] MEDS: buprenorphine HCL 8 MG SUBL SL SCH ×3 (09:38→21:51)
[2021-08-06] MEDS: ATORVASTATIN 40 MG TAB PO SCH (12:01)
[2021-08-06] MEDS: WARFARIN SOD 10 MG TAB PO SCH (15:05)
[2021-08-06] MEDS: ONDANSETRON INJ 2 MG/ML 2 ML VIAL IV PRN (16:51)
[2021-08-06] MEDS ORDERED: ACETAMINOPHEN 1000 MG/100 ML IV IV PRN (20:10)
[2021-08-06] MEDS: MELATONIN 3 MG TAB PO PRN (21:51)
[2021-08-06] MEDS: LORazepam 0.5 MG TAB PO PRN (21:51)
[2021-08-06] MEDS: INSULIN GLARGINE 100 UNIT/ML VIAL SC SCH (21:55)
--- NOTE | 2021-08-06 23:55 | Hospitalist Progress Note ---
Date of Service August 06, 2021 Assessment & Plan (1) Syncope: Plan: Status post fall Subgaleal hemorrhage Possible recurrent syncope likely vasovagal etiology Syncopal episode occurred while patient was at the commode 07/29/2021 No prodrome Patient and his significant other reports similar episodes at home Patient significant other reports possible seizure-like presentation when it happens No confusion after episodes CT head showed no acute intracerebral pathology. Compared to the previous examination, there is now a small to moderate-sized subgaleal hematoma anterior to the forehead. There is again evidence for sinusitis. Echocardiogram showed EF 60 to 65%, right ventricular systolic function is qualitatively normal, mild tricuspid regurgitation, Doppler findings do not suggest pulmonary hypertension Compared to previous study, there is no significant change EEG showed Normal appearing awake/drowsy EEG Previous hospitalist discussed with neurologist Dr. Dunham Syncope likely secondary to vasovagal etiology Carotid doppler study showed no hemodynamically significant stenosis or significant atherosclerotic plaquing. Normal antegrade vertebral flow bilaterally. Hospitalist discussed the case with neurosurgery in [place] for the subgaleal hemorrhage Neurosurgeon on-call at [facility] Dr. Nova, recommended to hold Coumadin for 3 days since time of fall, if with no clinical worsening, may resume Coumadin Recommended cardiology service evaluation, case was discussed with metal engraver Dr. Penn-syncope felt to be secondary to vasovagal episode, Imdur held Tele monitor showed no arrhythmia No recurrence of presyncope, syncope No focal neuro deficit Clinically stable Left upper extremity pain/Swelling CT of the shoulder, humerus, elbow, forearm: No fractures Left upper extremity Doppler ultrasound: No DVT Rib x-ray: No acute fractures Orthopedic service consulted-likely secondary to contusion Pain management reconsulted as patient requesting additional pain medication No additional narcotic medication recommended at this pointpatient is at high risk for developing adverse effects with additional narcotic medication as per pain management They are okay with one-time additional narcotic before patient undergoes procedures/imaging studies For now, recommend to continue with Subutex, tramadol, as needed IV Tylenol Rob wrap as per pain management service recommendation Previous hospitalist team discussed plan in detail and at length with patient, he expressed frustration but was accepting with this plan of care Dr. Aguila reevaluate patient, recommend cervical spine x-ray and MRI Pt said that he will need IV dilaudid before going to the MRI, will give 0.5 mg x1 prior with the testing (2) Acute on chronic diastolic heart failure: Presented with about 20 pounds weight gain in a few days with associated shortness of breath and increasing leg swelling Noted to have chest x-ray evidence of CHF Patient given IV Lasix with good response Continue Lasix 40mg BID and spironolactone 25 mg daily Continue monitor BMP Right breast skin fold rash Likely secondary to fungal infection, nystatin powder Possible bacterial infection, resolved, DC doxycycline (3) Chronic pain disorder: Pain management reconsulted as patient requesting additional pain medication No additional narcotic medication recommended at this pointpatient is at high risk for developing adverse effects with additional narcotic medication as per pain management They are okay with one-time additional narcotic before patient undergoes procedures/imaging studies For now, recommend to continue with Subutex, tramadol, as needed IV Tylenol (4) COPD exacerbation: Chronic respiratory failure with hypoxia--uses 4 L at bedtime and intermittently H/O COPD and felt to have a possible mild exacerbation on admission. Currently saturated well on RA (5) Urinary tract infection associated with catheterization of urinary tract: H/O Indwelling Lloyd catheter with recurrent urinary tract infection, POA. Likely secondary to chronic Lloyd catheter Urine culture Enterococcus faecalis, nonfermenter species completed antibiotic course this admission (6) DM type 2 (diabetes mellitus, type 2): Controlled as inpatient, cont current insulin regimen. (7) Anticoagulated on Coumadin: H/O PE and DVT Coumadin was on hold due to subgaleal hematoma Per previous hospitalist discussion with [facility] neurosurgeon, Coumadin was on hold for at least 3 days Discussed case in detail and at length with software engineer intern Dr. Gaines Recommend starting Lovenox 100 mg subcutaneous every 12 for DVT prophylaxis and that was okay with neurosurgeon as well Continue coumain with INR 2.5 today Will need to follow up with the coumadin clinic (8) HTN (hypertension): controlled, cont current therapy. (9) Hematochezia: Bright red blood per rectum reported earlier in admisison, which has now resolved. H/H has remained stable. Follow-up with GI as an outpatient (10) Morbid obesity: Continued to recommend Weight loss. (11) Right knee pain: Per previous attending note: Complaint right knee pain following a pop earlier this admission. Xray revealed no acute fracture. There is no clear abnormality on exam and patient is not reporting pain and is reporting that he can ambulate well around the room. No further investigation. Generalized knee pain now being reported as "compensation from avoiding pain in other joints" --one dose Toradol given above. Would not consistently use NSAIDs in setting of coumadin use to avoid bleeding risk. (12) DVT prophylaxis On Coumadin (13) medication error Apparently, another patient's insulin pen used on the patient Patient service excellence on board Dispo-awaiting transfer to [facility] per patient's request plan of care discussed with patient in detail and at length all questions answered he is understanding, agreeable, comfortable with the plan of care Admission and Anticipated Discharge Date Admission Date: July 05, 2021 Subjective Pt was seen and examined for follow up of CHF, left shoulder pain, fall Lying in bed comfortable watching He said that he is having pain in his left upper extremity He said that he is waiting for bed to transfer to [facility] recommended to get a cervical MRI, but patient said that he will need atleast Dilaudid 1.5mg IV prior to get the MRI He said that he would not go for the MRI if he does not get any IV dilaudid Denies headache, dizziness, change in vision, nausea vomiting, no focal neurologic deficits Review of Systems Review of Systems: All systems reviewed & are unremarkable except as noted in Subjective Physical Exam Physical Exam: General- No acute distress Head- atraumatic, bruises and hematoma on the right forehead Eyes-right periorbital hematoma/bruises ENT- oropharynx clear Neck- supple, no JVD Lungs- clear to auscultation Heart- regular rhythm; no murmur Abdomen- normal bowel sounds, soft, nontender Extremities- no calf tenderness, LUE tenderness, Rob wrap in place Neuro- alert, oriented x 3; PERRL, EOMI; no facial palsy; no dysarthria Skin- warm & dry Results & Data Results & Data ([facility]) Vital Signs (Past 12 Hours) Vital Signs Temp Pulse Pulse Resp BP Pulse Ox 08/06/21 18:37 37 C 71 16 121/64 94 08/06/21 15:50 36.9 C 66 16 130/77 91 08/06/21 15:12 66
[2021-08-07] MEDS ORDERED: HYDROmorphone INJ 0.5 MG/0.5 ML SYR IV ONE (02:30)
[2021-08-07] MEDS: traMADol HCL 50 MG TABLET PO PRN ×4 (04:04→21:21)
[2021-08-07] MEDS: ACETAMINOPHEN 1,000 MG/100 ML VIAL IV PRN ×2 (05:39→17:43)
[2021-08-07] MEDS: PANTOprazole 40 MG TAB PO SCH (05:43)
[2021-08-07] MEDS: INSULIN ASPART 100 UNITS/ML 3 ML PEN SC SCH ×4 (07:55→22:32)
[2021-08-07] MEDS: FLUTICASONE PROPIONATE NA SPR 16 GM BTL SCH (08:01)
[2021-08-07] MEDS: NYSTATIN SUSP 500,000 U/5 ML UDC PO SCH ×4 (08:01→22:27)
[2021-08-07] MEDS: UMECLIDINIUM BROMIDE 62.5MCG/BLISTER 7 PUFFS/INHALER INH SCH (08:01)
[2021-08-07] MEDS: FLUTICASONE/VILANTEROL 100/25MCG 14 PUFFS/INHALER INH SCH (08:01)
[2021-08-07] MEDS: DOCUSATE SODIUM 100 MG CAP PO SCH ×2 (08:03→22:27)
[2021-08-07] MEDS: buprenorphine HCL 8 MG SUBL SL SCH ×3 (08:03→22:22)
[2021-08-07] MEDS: FINASTERIDE 5 MG TAB PO SCH (08:04)
[2021-08-07] MEDS: DULoxetine HCL 60 MG CAP PO SCH (08:04)
[2021-08-07] MEDS: FAMOTIDINE 20 MG TAB PO SCH (08:04)
[2021-08-07] MEDS: FOLIC ACID 1 MG TAB PO SCH (08:04)
[2021-08-07] MEDS: GABAPENTIN 800 MG TAB PO SCH ×3 (08:06→22:25)
[2021-08-07] MEDS: guaiFENesin 600 MG TABCR PO SCH ×2 (08:06→22:26)
[2021-08-07] MEDS: ADVANCED PROBIOTIC 1250 MG CAPSULE PO SCH ×3 (08:06→22:26)
[2021-08-07] MEDS: FUROSEMIDE 40 MG TAB PO SCH ×2 (08:06→17:18)
[2021-08-07] MEDS: METHENAMINE HIPPURATE 1 GM TAB PO SCH (08:07)
[2021-08-07] MEDS: METOPROLOL SUCC 25MG EXT REL TAB PO SCH ×2 (08:07→22:25)
[2021-08-07] MEDS: NICOTINE 21 MG/24 HR TDSY TD SCH (08:07)
[2021-08-07] MEDS: POLYETHYLENE (MIRALAX) 17 GM PACK PO SCH (08:08)
[2021-08-07] MEDS: TAMSULOSIN HCL 0.4 MG CAP PO SCH (08:08)
[2021-08-07] MEDS: NYSTATIN POWDER 15GM BTL EXT SCH ×2 (08:08→22:28)
[2021-08-07 09:01] LABS: Hematocrit (blood only) 40.6 % (42-52); INR 2.4 (0.9-1.1); Mean Corpuscular Hemoglobin 26.9 pg (25-34); Mean Corpuscular Volume 84.1 fL (80-100); Mean Platelet Volume 10.3 fL (7.4-10.4); Platelet Count 230 K/uL (130-400); Prothrombin Time 22.5 Seconds (9.0-12.0); RDW Coefficient of Variation 17.6 % (11.5-14.5); RDW Standard Deviation 54.5 fL (36.4-46.3); Red Blood Count 4.83 M/uL (4.7-6.1); White Blood Count 11.45 K/uL (4.8-10.8)
[2021-08-07] MEDS: ATORVASTATIN 40 MG TAB PO SCH (12:58)
[2021-08-07] MEDS: WARFARIN SOD 10 MG TAB PO SCH (16:05)
[2021-08-07] MEDS: MELATONIN 3 MG TAB PO PRN (22:30)
[2021-08-07] MEDS: LORazepam 0.5 MG TAB PO PRN (22:30)
[2021-08-07] MEDS: INSULIN GLARGINE 100 UNIT/ML VIAL SC SCH (22:34)
[2021-08-07] MEDS: ONDANSETRON INJ 2 MG/ML 2 ML VIAL IV PRN (23:58)
--- NOTE | 2021-08-08 00:18 | Hospitalist Progress Note ---
Date of Service August 07, 2021 Assessment & Plan (1) Syncope: Plan: Status post fall Subgaleal hemorrhage Possible recurrent syncope likely vasovagal etiology Syncopal episode occurred while patient was at the commode 07/29/2021 No prodrome Patient and his significant other reports similar episodes at home Patient significant other reports possible seizure-like presentation when it happens No confusion after episodes CT head showed no acute intracerebral pathology. Compared to the previous examination, there is now a small to moderate-sized subgaleal hematoma anterior to the forehead. There is again evidence for sinusitis. Echocardiogram showed EF 60 to 65%, right ventricular systolic function is qualitatively normal, mild tricuspid regurgitation, Doppler findings do not suggest pulmonary hypertension Compared to previous study, there is no significant change EEG showed Normal appearing awake/drowsy EEG Previous hospitalist discussed with neurologist Dr. Dunham Syncope likely secondary to vasovagal etiology Carotid doppler study showed no hemodynamically significant stenosis or significant atherosclerotic plaquing. Normal antegrade vertebral flow bilaterally. Hospitalist discussed the case with neurosurgery in [place] for the subgaleal hemorrhage Neurosurgeon on-call at [facility] Dr. Nova, recommended to hold Coumadin for 3 days since time of fall, if with no clinical worsening, may resume Coumadin Recommended cardiology service evaluation, case was discussed with crossing watchman Dr. Penn-syncope felt to be secondary to vasovagal episode, Imdur held Tele monitor showed no arrhythmia No recurrence of presyncope, syncope No focal neuro deficit Clinically stable Left upper extremity pain/Swelling CT of the shoulder, humerus, elbow, forearm: No fractures Left upper extremity Doppler ultrasound: No DVT Rib x-ray: No acute fractures Orthopedic service consulted-likely secondary to contusion Pain management reconsulted as patient requesting additional pain medication No additional narcotic medication recommended at this pointpatient is at high risk for developing adverse effects with additional narcotic medication as per pain management They are okay with one-time additional narcotic before patient undergoes procedures/imaging studies For now, recommend to continue with Subutex, tramadol, as needed IV Tylenol Rob wrap as per pain management service recommendation Previous hospitalist team discussed plan in detail and at length with patient, he expressed frustration but was accepting with this plan of care Dr. Aguila reevaluate patient, recommend cervical spine x-ray and MRI Pt said that he will need IV dilaudid before going to the MRI, will give 0.5 mg x1 prior with the testing Refused to get MRI done last night since he did not get 1.5 to 2 mg of Dilaudid prior to the testing; he said the 0.5 mg will not help him to get the MRI done I explained to him the risks of giving too much Dilaudid while on Suboxone and tramadol such as unresponsiveness, respiratory distress, aspiration while lying in the MRI machine. I explained to him that I would have to document that he did not want to proceed with the MRI because he did not get 1.5 to 2 mg of Dilaudid. He already have an order of Dilaudid 0.5 mg to be given prior to the testing. As I was walking out of the door, he said that he would give the MRI a trial with the 0.5 mg Dilaudid Acute on chronic diastolic heart failure: Presented with about 20 pounds weight gain in a few days with associated shortness of breath and increasing leg swelling Noted to have chest x-ray evidence of CHF Patient given IV Lasix with good response Continue Lasix 40mg BID and spironolactone 25 mg daily Continue monitor BMP Right breast skin fold rash Likely secondary to fungal infection, nystatin powder Possible bacterial infection, resolved, DC doxycycline Chronic pain disorder: Pain management reconsulted as patient requesting additional pain medication No additional narcotic medication recommended at this pointpatient is at high risk for developing adverse effects with additional narcotic medication as per pain management They are okay with one-time additional narcotic before patient undergoes procedures/imaging studies For now, recommend to continue with Subutex, tramadol, as needed IV Tylenol COPD exacerbation: Chronic respiratory failure with hypoxia--uses 4 L at bedtime and intermittently H/O COPD and felt to have a possible mild exacerbation on admission. Currently saturated well on RA Urinary tract infection associated with catheterization of urinary tract: H/O Indwelling Lloyd catheter with recurrent urinary tract infection, POA. Likely secondary to chronic Lloyd catheter Urine culture Enterococcus faecalis, nonfermenter species completed antibiotic course this admission DM type 2 (diabetes mellitus, type 2): Controlled as inpatient, cont current insulin regimen. Anticoagulated on Coumadin: H/O PE and DVT Coumadin was on hold due to subgaleal hematoma Per previous hospitalist discussion with [facility] neurosurgeon, Coumadin was on hold for at least 3 days Discussed case in detail and at length with exhaust tender Dr. Gaines Recommend starting Lovenox 100 mg subcutaneous every 12 for DVT prophylaxis and that was okay with neurosurgeon as well Continue coumain with INR 2.5 today Will need to follow up with the coumadin clinic HTN (hypertension): controlled, cont current therapy. Hematochezia: Bright red blood per rectum reported earlier in admisison, which has now resolved. H/H has remained stable. Follow-up with GI as an outpatient Morbid obesity: Continued to recommend Weight loss. Right knee pain: Per previous attending note: Complaint right knee pain following a pop earlier this admission. Xray revealed no acute fracture. There is no clear abnormality on exam and patient is not reporting pain and is reporting that he can ambulate well around the room. No further investigation. Generalized knee pain now being reported as "compensation from avoiding pain in other joints" --one dose Toradol given above. Would not consistently use NSAIDs in setting of coumadin use to avoid bleeding risk. DVT prophylaxis On Coumadin medication error Apparently, another patient's insulin pen used on the patient Patient service excellence on board Patient would like to talk to infectious control again Infectious control was notified and will come tomorrow to talk to patient Disposition Patient has been waiting transfer to [facility] per patient's request because he did not like the care he is getting here I explained to him that he would not get a bed since he has been almost a week waiting for 1 that he is stable Spoke to therapist that said he was independent for bed mobility and supervision for sit. He was able to ambulate with supervision 20'x2 and 8'x10 which is typically the distance he ambulates at home. Both PT/OT feel home health would be appropriate if his can provide 24-hour supervision for safety and assist as she did prior to admission. Patient was not happy because I did not want to give 1.5 to 2 mg of Dilaudid, instead I ordered 0.5 mg prior to the MRI and the idea he might have to go home with home health that made him upset and called me pearl schaefer. Admission and Anticipated Discharge Date Admission Date: July 05, 2021 Subjective Pt was seen and examined for follow up of CHF, left shoulder pain, fall Lying in bed comfortable watching TV He said that he continues to have a lot of pain He did not go for the MRI because he said that he was only ordered 0.5 mg of Dilaudid He said that he would need 1.5 to 2 mg of Dilaudid prior testing in order for him to go to get the MRI done I explained to him the risks of giving too much Dilaudid while on Suboxone and tramadol such as unresponsiveness, respiratory distress, aspiration while lying in the MRI machine. I explained to him that I would have to document that he did not want to proceed with the MRI because he did not get 1.5 to 2 mg of Dilaudid. He already had an order of Dilaudid 0.5 mg to be given prior to the testing. I explained to him as well that if the MRI is negative and PT/OT evaluate him later and report that he is stable to go home that I will discharge him. He had very upset and said that he is waiting for bed to transfer to [place] because he was not happy with the care that he is getting here. He said that he knew the moment we rotated physician that he ended up with my "pearl head" that i would not give him the dilaudid 1.5mg for the MRI and would try to send him home. I firmly told him that I respect him and I expect him to respect me too. He again called me a pearl head. His was on the phone when he called me pearl schaefer; the was apologized on his behalf. Since he was upset, agitated and called me name, I told him that I would come back later to talk to him when he becomes calm. Later when I came to talk to him, he was able to apologize for calling me the name "pearl Schaefer" He said that he would give the MRI a trial with the 0.5 mg Dilaudid I also told him that I spoke to therapist that both PT/OT feel home health will be appropriate if his can provide 24-hour supervision for safety and assist as she did prior to admission to him that I spoke to call therapy He also wanted to talk to infectious control that I notified that we will come to talk to him tomorrow Currently denies any chest pain, palpitation, dizziness, shortness of breath. Review of Systems Review of Systems: All systems reviewed & are unremarkable except as noted in Subjective Physical Exam Physical Exam: General- No acute distress Head- atraumatic, bruises and hematoma on the right forehead Eyes-right periorbital hematoma/bruises ENT- oropharynx clear Neck- supple, no JVD Lungs- clear to auscultation Heart- regular rhythm; no murmur Abdomen- normal bowel sounds, soft, nontender Extremities- no calf tenderness, LUE tenderness, Rob wrap in place Neuro- alert, oriented x 3; PERRL, EOMI; no facial palsy; no dysarthria Skin- warm & dry Results & Data Results & Data ([facility]) Vital Signs (Past 12 Hours) Vital Signs Temp Pulse Resp BP Pulse Ox 08/07/21 23:10 36.8 C 67 18 113/58 L 93 08/07/21 19:25 37.1 C 65 20 123/69 93 08/07/21 14:03 37.0 C 71 16 131/76 95
[2021-08-08] MEDS: ACETAMINOPHEN 1,000 MG/100 ML VIAL IV PRN ×3 (01:31→22:25)
[2021-08-08] MEDS: traMADol HCL 50 MG TABLET PO PRN ×4 (02:34→21:20)
[2021-08-08] MEDS: PANTOprazole 40 MG TAB PO SCH (06:27)
[2021-08-08 07:49] LABS: INR 2.7 (0.9-1.1); Prothrombin Time 25.1 Seconds (9.0-12.0)
[2021-08-08 08:20] LABS: BUN Creatinine Ratio 16.7 (10-20); Calcium 9.7 mg/dl (8.5-10.1); Creatinine Clr Calc Pharmacy 139.3 ml/min; Est GFR (African American) 85.8 ml/min; Est GFR (Non-African American) 74.1 ml/min; Potassium 3.9 mmol/L (3.5-5.1)
[2021-08-08] MEDS: TAMSULOSIN HCL 0.4 MG CAP PO SCH (08:59)
[2021-08-08] MEDS: UMECLIDINIUM BROMIDE 62.5MCG/BLISTER 7 PUFFS/INHALER INH SCH (08:59)
[2021-08-08] MEDS: NYSTATIN SUSP 500,000 U/5 ML UDC PO SCH ×4 (09:00→21:34)
[2021-08-08] MEDS: NYSTATIN POWDER 15GM BTL EXT SCH ×2 (09:00→21:34)
[2021-08-08] MEDS: NICOTINE 21 MG/24 HR TDSY TD SCH (09:01)
[2021-08-08] MEDS: METOPROLOL SUCC 25MG EXT REL TAB PO SCH ×2 (09:01→21:33)
[2021-08-08] MEDS: FOLIC ACID 1 MG TAB PO SCH (09:02)
[2021-08-08] MEDS: METHENAMINE HIPPURATE 1 GM TAB PO SCH (09:02)
[2021-08-08] MEDS: GABAPENTIN 800 MG TAB PO SCH ×3 (09:02→21:30)
[2021-08-08] MEDS: FUROSEMIDE 40 MG TAB PO SCH ×2 (09:02→16:49)
[2021-08-08] MEDS: guaiFENesin 600 MG TABCR PO SCH ×2 (09:02→21:31)
[2021-08-08] MEDS: ADVANCED PROBIOTIC 1250 MG CAPSULE PO SCH ×3 (09:02→21:32)
[2021-08-08] MEDS: FINASTERIDE 5 MG TAB PO SCH (09:03)
[2021-08-08] MEDS: FLUTICASONE PROPIONATE NA SPR 16 GM BTL SCH (09:03)
[2021-08-08] MEDS: DULoxetine HCL 60 MG CAP PO SCH (09:03)
[2021-08-08] MEDS: FAMOTIDINE 20 MG TAB PO SCH (09:03)
[2021-08-08] MEDS: FLUTICASONE/VILANTEROL 100/25MCG 14 PUFFS/INHALER INH SCH (09:03)
[2021-08-08] MEDS: ERGOCALCIFEROL 50,000 UNITS 1250 MCG CAP PO SCH (09:04)
[2021-08-08] MEDS: INSULIN ASPART 100 UNITS/ML 3 ML PEN SC SCH ×4 (09:13→21:26)
[2021-08-08] MEDS: buprenorphine HCL 8 MG SUBL SL SCH ×3 (10:26→21:54)
[2021-08-08] MEDS: POLYETHYLENE (MIRALAX) 17 GM PACK PO SCH (10:27)
[2021-08-08] MEDS: DOCUSATE SODIUM 100 MG CAP PO SCH ×2 (10:55→21:54)
[2021-08-08] MEDS: LORazepam 0.5 MG TAB PO PRN ×2 (10:55→22:04)
[2021-08-08] MEDS ORDERED: HYDROmorphone INJ 1 MG/ML SYRINGE IV ONE ×2 (11:55→18:30)
[2021-08-08] MEDS: ATORVASTATIN 40 MG TAB PO SCH (12:09)
[2021-08-08] MEDS: WARFARIN SOD 10 MG TAB PO SCH (16:31)
[2021-08-08] MEDS: ONDANSETRON INJ 2 MG/ML 2 ML VIAL IV PRN (16:53)
[2021-08-08] MEDS ORDERED: HYDROmorphone INJ 0.5 MG/0.5 ML SYR IV PRN (20:03)
--- NOTE | 2021-08-08 20:21 | Hospitalist Progress Note ---
Date of Service August 08, 2021 Assessment & Plan (1) Syncope: Plan: Status post fall Subgaleal hemorrhage Possible recurrent syncope likely vasovagal etiology Syncopal episode occurred while patient was at the commode 07/29/2021 No prodrome Patient and his significant other reports similar episodes at home Patient significant other reports possible seizure-like presentation when it happens No confusion after episodes CT head showed no acute intracerebral pathology. Compared to the previous examination, there is now a small to moderate-sized subgaleal hematoma anterior to the forehead. There is again evidence for sinusitis. Echocardiogram showed EF 60 to 65%, right ventricular systolic function is qualitatively normal, mild tricuspid regurgitation, Doppler findings do not suggest pulmonary hypertension Compared to previous study, there is no significant change EEG showed Normal appearing awake/drowsy EEG Previous hospitalist discussed with neurologist Dr. Dunham Syncope likely secondary to vasovagal etiology Carotid doppler study showed no hemodynamically significant stenosis or significant atherosclerotic plaquing. Normal antegrade vertebral flow bilaterally. Hospitalist discussed the case with neurosurgery in [place] for the subgaleal hemorrhage Neurosurgeon on-call at [facility] Dr. Nova, recommended to hold Coumadin for 3 days since time of fall, if with no clinical worsening, may resume Coumadin Recommended cardiology service evaluation, case was discussed with pressure tester operator Dr. Penn-syncope felt to be secondary to vasovagal episode, Imdur held Tele monitor showed no arrhythmia No recurrence of presyncope, syncope No focal neuro deficit Clinically stable Left upper extremity pain/Swelling CT of the shoulder, humerus, elbow, forearm: No fractures Left upper extremity Doppler ultrasound: No DVT Rib x-ray: No acute fractures Orthopedic service consulted-likely secondary to contusion Pain management reconsulted as patient requesting additional pain medication No additional narcotic medication recommended at this pointpatient is at high risk for developing adverse effects with additional narcotic medication as per pain management They are okay with one-time additional narcotic before patient undergoes procedures/imaging studies For now, recommend to continue with Subutex, tramadol, as needed IV Tylenol Rob wrap as per pain management service recommendation Previous hospitalist team discussed plan in detail and at length with patient, he expressed frustration but was accepting with this plan of care Dr. Aguila reevaluate patient, recommend cervical spine x-ray and MRI Pt said that he will need IV dilaudid before going to the MRI, will give 0.5 mg x1 prior with the testing Refused to get MRI done last night since he did not get 1.5 to 2 mg of Dilaudid prior to the testing; he said the 0.5 mg will not help him to get the MRI done I explained to him the risks of giving too much Dilaudid while on Suboxone and tramadol such as unresponsiveness, respiratory distress, aspiration while lying in the MRI machine. I explained to him that I would have to document that he did not want to proceed with the MRI because he did not get 1.5 to 2 mg of Dilaudid. He already have an order of Dilaudid 0.5 mg to be given prior to the testing. As I was walking out of the door, he said that he would give the MRI a trial with the 0.5 mg Dilaudid He was not able to get the MRI done last night and schedule to get it done today Will give dialudid 1mg IVx1 prior with the MRI Acute on chronic diastolic heart failure: Presented with about 20 pounds weight gain in a few days with associated shortness of breath and increasing leg swelling Noted to have chest x-ray evidence of CHF Patient given IV Lasix with good response Continue Lasix 40mg BID and spironolactone 25 mg daily Continue monitor BMP Right breast skin fold rash Likely secondary to fungal infection, nystatin powder Possible bacterial infection, resolved, DC doxycycline Chronic pain disorder: Pain management reconsulted as patient requesting additional pain medication No additional narcotic medication recommended at this pointpatient is at high risk for developing adverse effects with additional narcotic medication as per pain management They are okay with one-time additional narcotic before patient undergoes procedures/imaging studies For now, recommend to continue with Subutex, tramadol, as needed IV Tylenol Pt was asking to transition to oxycodone in the time that he will be in rehab I spoke to Dr Ching pain management that said absolutely no that he would not transition him from Suboxone to oxycodone due to his past behavior for drug COPD exacerbation: Chronic respiratory failure with hypoxia--uses 4 L at bedtime and intermittently H/O COPD and felt to have a possible mild exacerbation on admission. Currently saturated well on RA Urinary tract infection associated with catheterization of urinary tract: H/O Indwelling Lloyd catheter with recurrent urinary tract infection, POA. Likely secondary to chronic Lloyd catheter Urine culture Enterococcus faecalis, nonfermenter species completed antibiotic course this admission DM type 2 (diabetes mellitus, type 2): Controlled as inpatient, cont current insulin regimen. Anticoagulated on Coumadin: H/O PE and DVT Coumadin was on hold due to subgaleal hematoma Per previous hospitalist discussion with [facility] neurosurgeon, Coumadin was on hold for at least 3 days Discussed case in detail and at length with recooperer Dr. Gaines Recommend starting Lovenox 100 mg subcutaneous every 12 for DVT prophylaxis and that was okay with neurosurgeon as well Continue coumain with INR 2.7 today Will need to follow up with the coumadin clinic HTN (hypertension): controlled, cont current therapy. Hematochezia: Bright red blood per rectum reported earlier in admisison, which has now resolved. H/H has remained stable. Follow-up with GI as an outpatient Morbid obesity: Continued to recommend Weight loss. Right knee pain: Per previous attending note: Complaint right knee pain following a pop earlier this admission. Xray revealed no acute fracture. There is no clear abnormality on exam and patient is not reporting pain and is reporting that he can ambulate well around the room. No further investigation. Generalized knee pain now being reported as "compensation from avoiding pain in other joints" --one dose Toradol given above. Would not consistently use NSAIDs in setting of coumadin use to avoid bleeding risk. DVT prophylaxis On Coumadin medication error Apparently, another patient's insulin pen used on the patient Patient service excellence on board Patient would like to talk to infectious control again Infectious control was notified and will come tomorrow to talk to patient Disposition Patient has been waiting transfer to [facility] per patient's request because he did not like the care he is getting here I explained to him that he would not get a bed since he has been almost a week waiting for 1 that he is stable Spoke to therapist that said he was independent for bed mobility and supervision for sit. He was able to ambulate with supervision 20'x2 and 8'x10 which is typically the distance he ambulates at home. Both PT/OT feel home health would be appropriate if his can provide 24-hour supervision for safety and assist as she did prior to admission. Patient was not happy because I did not want to give 1.5 to 2 mg of Dilaudid, instead I ordered 0.5 mg prior to the MRI and the idea he might have to go home with home health that made him upset and called me pearl martino. Dilaudid 1mg ordered to be given prior with the MRI Admission and Anticipated Discharge Date Admission Date: July 05, 2021 Subjective Pt was seen and examined for follow up of CHF, pain, fall Lying in bed comfortable watching TV He said that he continues to have a lot of pain He continues asking for Dilaudid 1.5 mg to be given prio with MRI I explained to him hat i will not give him dilaudid IV 1.5 mg due to increase risk of complications such as respiratory depression, unresponsive He was agreed to get dilaudid 1mg IV prior to MRI Pt said that he is not able to lie flat on his back Case management has not been able to find any placement for him due to the Suboxone Pt was asking to transition to oxycodone in the time that he will be in rehab I spoke to Dr Ching pain management that said absolutely no that he would not transition him from Suboxone to oxycodone due to his past behavior for drug seeking narcotic. Pt was able to walk 20 feet x2 with therapy Denies any chest pain, palpitation,dizziness and SOB Review of Systems Review of Systems: All systems reviewed & are unremarkable except as noted in Subjective Physical Exam Physical Exam: General- No acute distress Head- atraumatic, bruises and hematoma on the right forehead Eyes-right periorbital hematoma/bruises ENT- oropharynx clear Neck- supple, no JVD Lungs- clear to auscultation Heart- regular rhythm; no murmur Abdomen- normal bowel sounds, soft, nontender Extremities- no calf tenderness, LUE tenderness, Rob wrap in place Neuro- alert, oriented x 3; PERRL, EOMI; no facial palsy; no dysarthria Skin- warm & dry Results & Data Results & Data ([facility]) Vital Signs (Past 12 Hours) Vital Signs Temp Pulse Pulse Resp BP Pulse Ox 08/08/21 15:20 36.9 C 66 16 128/54 L 92 08/08/21 15:00 78 08/08/21 11:26 36.9 C 67 18 123/73 93
--- NOTE | 2021-08-08 20:24 | XRay Report ---
XR cervical spine 2 or 3V HISTORY: 51 years-old Male s/p fall acute neck pain status post fall COMPARISON: MRI cervical spine of same day TECHNIQUE: 3 views of the cervical spine FINDINGS: No acute fracture, subluxation or endplate erosion. The lower cervical segments are suboptimally visu alized secondary to overlying soft tissue. No prevertebral edema. There is mild multilevel interverte bral disc space narrowing with uncovertebral spurring and facet arthrosis. Unremarkable soft tissues. Lung apices are clear. Left carotid calcifications. IMPRESSION: Mild degenerative changes without acute fracture or subluxation. ACT 112: Negative or not required by law. The above report was generated using voice recognition software. It may contain grammatical, syntax o r spelling errors. Electronically signed by: Shelton Apodaca M.D. 08/08/2021 8:23 PM
[2021-08-08] MEDS: INSULIN GLARGINE 100 UNIT/ML VIAL SC SCH (21:52)
[2021-08-08] MEDS: MELATONIN 3 MG TAB PO PRN (22:04)
--- NOTE | 2021-08-08 22:43 | Magnetic Resonance Report ---
MR cervical spine wo con HISTORY: 51 years-old Male rule out cervical radiculopathy. Acute neck injury status post fall. COMPARISON: Cervical spine radiographs of same day, MRI cervical spine 07/12/2012 TECHNIQUE: Multiplanar, multisequence MRI of the cervical spine was obtained without the use of IV co ntrast. FINDINGS: Motion degraded exam. Campaign Coordinator localizer images demonstrate no gross extraspinal abnormality. No acute f racture, subluxation, bone marrow or soft tissue edema. Signal within the cervical and imaged thoraci c spinal cord appears normal. There is mild multilevel intervertebral disc space narrowing. The study is limited secondary to motion artifact and patient body habitus. Left mastoid effusion. Mediastinal lipomatosis. Straightening of the cervical lordosis. C2-C3: Mild uncovertebral spurring and facet arthrosis. The central canal and right neural foramen ar e patent. Mild left neural foraminal narrowing is unchanged. C3-C4: Mild uncovertebral spurring and facet arthrosis. The central canal is patent. Unchanged mild r ight with moderate left neuroforaminal narrowing. C4-C5: Small posterior disc osteophyte complex with mild facet arthrosis. Flattening of the ventral t hecal sac results in mild central canal stenosis with AP dimension measuring 8 mm. Unchanged moderate to severe bilateral neural foraminal narrowing. C5-C6: Mild uncovertebral spurring and facet arthrosis. Mild flattening of the ventral thecal sac wit hout significant central canal narrowing. Unchanged mild to moderate bilateral neural foraminal narro wing. C6-C7: Small left lateral recess/left foraminal disc osteophyte complex with mild uncovertebral spurr ing and facet arthrosis. The central canal is patent. There is a least mild narrowing of the left lat eral recess. Mild to moderate right with moderate to severe left neural foraminal narrowing, mildly p rogressed. C7-T1: Mild uncovertebral spurring and facet arthrosis. The central canal and neural foramina are pat ent. IMPRESSION: 1. Limited study as above. 2. Mild multilevel intervertebral disc space narrowing with uncovertebral spurring and facet arthrosi s is generally stable from the comparison 07/12/2012 study. 3. Multilevel neuroforaminal narrowing, mildly progressed at C6-C7. 4. Mild central canal stenosis at C4-C5. ACT 112: Negative or not required by law. The above report was generated using voice recognition software. It may contain grammatical, syntax o r spelling errors. Dictated: 08/08/2021 9:12 PM Transcribed: 08/08/2021 10:12 PM Sarina [id number] [email or web address] Electronically signed by: Shelton Apodaca M.D. 08/08/2021 10:41 PM
[2021-08-09] MEDS: INSULIN ASPART 100 UNITS/ML 3 ML PEN SC SCH ×5 (01:49→20:55)
[2021-08-09] MEDS: traMADol HCL 50 MG TABLET PO PRN ×4 (04:17→22:08)
[2021-08-09] MEDS: PANTOprazole 40 MG TAB PO SCH (05:56)
[2021-08-09 07:10] LABS: INR 3.5 (0.9-1.1); Prothrombin Time 32.1 Seconds (9.0-12.0)
[2021-08-09] MEDS: ACETAMINOPHEN 1,000 MG/100 ML VIAL IV PRN (08:02)
[2021-08-09] MEDS: buprenorphine HCL 8 MG SUBL SL SCH ×3 (08:03→20:49)
[2021-08-09] MEDS: METOPROLOL SUCC 25MG EXT REL TAB PO SCH ×2 (10:45→20:57)
[2021-08-09] MEDS: NICOTINE 21 MG/24 HR TDSY TD SCH (10:47)
[2021-08-09] MEDS: guaiFENesin 600 MG TABCR PO SCH ×2 (10:48→20:54)
[2021-08-09] MEDS: NYSTATIN POWDER 15GM BTL EXT SCH ×2 (10:49→21:00)
[2021-08-09] MEDS: NYSTATIN SUSP 500,000 U/5 ML UDC PO SCH ×4 (10:49→20:58)
[2021-08-09] MEDS: GABAPENTIN 800 MG TAB PO SCH ×3 (10:50→20:53)
[2021-08-09] MEDS: FAMOTIDINE 20 MG TAB PO SCH (10:51)
[2021-08-09] MEDS: TAMSULOSIN HCL 0.4 MG CAP PO SCH (10:51)
[2021-08-09] MEDS: FLUTICASONE/VILANTEROL 100/25MCG 14 PUFFS/INHALER INH SCH (10:52)
[2021-08-09] MEDS: ATORVASTATIN 40 MG TAB PO SCH (10:52)
[2021-08-09] MEDS: FUROSEMIDE 40 MG TAB PO SCH ×2 (10:54→18:30)
[2021-08-09] MEDS: FOLIC ACID 1 MG TAB PO SCH (10:55)
[2021-08-09] MEDS: METHENAMINE HIPPURATE 1 GM TAB PO SCH (10:55)
[2021-08-09] MEDS: FINASTERIDE 5 MG TAB PO SCH (10:55)
[2021-08-09] MEDS: DULoxetine HCL 60 MG CAP PO SCH (10:56)
[2021-08-09] MEDS: FLUTICASONE PROPIONATE NA SPR 16 GM BTL SCH (10:57)
[2021-08-09] MEDS: ADVANCED PROBIOTIC 1250 MG CAPSULE PO SCH ×3 (10:57→20:56)
[2021-08-09] MEDS: DOCUSATE SODIUM 100 MG CAP PO SCH ×2 (10:57→20:52)
[2021-08-09] MEDS: POLYETHYLENE (MIRALAX) 17 GM PACK PO SCH (10:58)
[2021-08-09] MEDS: UMECLIDINIUM BROMIDE 62.5MCG/BLISTER 7 PUFFS/INHALER INH SCH (10:58)
[2021-08-09] MEDS: LORazepam 0.5 MG TAB PO PRN (18:48)
--- NOTE | 2021-08-09 19:25 | Hospitalist Progress Note ---
Date of Service August 09, 2021 Assessment & Plan (1) Syncope: Plan: Status post fall Subgaleal hemorrhage Possible recurrent syncope likely vasovagal etiology Syncopal episode occurred while patient was at the commode 07/29/2021 No prodrome Patient and his significant other reports similar episodes at home Patient significant other reports possible seizure-like presentation when it happens No confusion after episodes CT head showed no acute intracerebral pathology. Compared to the previous examination, there is now a small to moderate-sized subgaleal hematoma anterior to the forehead. There is again evidence for sinusitis. Echocardiogram showed EF 60 to 65%, right ventricular systolic function is qualitatively normal, mild tricuspid regurgitation, Doppler findings do not suggest pulmonary hypertension Compared to previous study, there is no significant change EEG showed Normal appearing awake/drowsy EEG Previous hospitalist discussed with neurologist Dr. Dunham Syncope likely secondary to vasovagal etiology Carotid doppler study showed no hemodynamically significant stenosis or significant atherosclerotic plaquing. Normal antegrade vertebral flow bilaterally. Hospitalist discussed the case with neurosurgery in [place] for the subgaleal hemorrhage Neurosurgeon on-call at [facility] Dr. Nova, recommended to hold Coumadin for 3 days since time of fall, if with no clinical worsening, may resume Coumadin Recommended cardiology service evaluation, case was discussed with sheet sewer Dr. Penn-syncope felt to be secondary to vasovagal episode, Imdur held Tele monitor showed no arrhythmia No recurrence of presyncope, syncope No focal neuro deficit Clinically stable Left upper extremity pain/Swelling CT of the shoulder, humerus, elbow, forearm: No fractures Left upper extremity Doppler ultrasound: No DVT Rib x-ray: No acute fractures Orthopedic service consulted-likely secondary to contusion Pain management reconsulted as patient requesting additional pain medication No additional narcotic medication recommended at this pointpatient is at high risk for developing adverse effects with additional narcotic medication as per pain management They are okay with one-time additional narcotic before patient undergoes procedures/imaging studies For now, recommend to continue with Subutex, tramadol, as needed IV Tylenol Rob wrap as per pain management service recommendation Previous hospitalist team discussed plan in detail and at length with patient, he expressed frustration but was accepting with this plan of care Dr. Aguila reevaluate patient, recommend cervical spine x-ray and MRI Pt said that he will need IV dilaudid before going to the MRI, will give 0.5 mg x1 prior with the testing Refused to get MRI done last night since he did not get 1.5 to 2 mg of Dilaudid prior to the testing; he said the 0.5 mg will not help him to get the MRI done I explained to him the risks of giving too much Dilaudid while on Suboxone and tramadol such as unresponsiveness, respiratory distress, aspiration while lying in the MRI machine. I explained to him that I would have to document that he did not want to proceed with the MRI because he did not get 1.5 to 2 mg of Dilaudid. He already have an order of Dilaudid 0.5 mg to be given prior to the testing. As I was walking out of the door, he said that he would give the MRI a trial with the 0.5 mg Dilaudid He was not able to get the MRI done last night and schedule to get it done today Will give dialudid 1mg IVx1 prior with the MRI 08/09/21 MRI showed Mild multilevel intervertebral disc space narrowing with uncovertebra l spurring and facet arthrosis is generally stable from the comparison 07/12/2012 study. Multilevel neuroforaminal narrowing, mildly progressed at C6- C7. Mild central canal stenosis at C4-C5. CXR showed Mild degenerative changes without acute fracture or subluxation. Continue pain control as needed Acute on chronic diastolic heart failure: Presented with about 20 pounds weight gain in a few days with associated shortness of breath and increasing leg swelling Noted to have chest x-ray evidence of CHF Patient given IV Lasix with good response Continue Lasix 40mg BID and spironolactone 25 mg daily Continue monitor BMP Right breast skin fold rash Likely secondary to fungal infection, nystatin powder Possible bacterial infection, resolved, DC doxycycline Chronic pain disorder: Pain management reconsulted as patient requesting additional pain medication No additional narcotic medication recommended at this pointpatient is at high risk for developing adverse effects with additional narcotic medication as per pain management They are okay with one-time additional narcotic before patient undergoes procedures/imaging studies For now, recommend to continue with Subutex, tramadol, as needed IV Tylenol Pt was asking to transition to oxycodone in the time that he will be in rehab I spoke to Dr Ching pain management that said absolutely no that he would not transition him from Suboxone to oxycodone due to his past behavior for drug COPD exacerbation: Chronic respiratory failure with hypoxia--uses 4 L at bedtime and intermittently H/O COPD and felt to have a possible mild exacerbation on admission. Currently saturated well on RA Urinary tract infection associated with catheterization of urinary tract: H/O Indwelling Lloyd catheter with recurrent urinary tract infection, POA. Likely secondary to chronic Lloyd catheter Urine culture Enterococcus faecalis, nonfermenter species completed antibiotic course this admission DM type 2 (diabetes mellitus, type 2): Controlled as inpatient, cont current insulin regimen. Anticoagulated on Coumadin: H/O PE and DVT Coumadin was on hold due to subgaleal hematoma Per previous hospitalist discussion with [facility] neurosurgeon, Coumadin was on hold for at least 3 days Discussed case in detail and at length with legal researcher Dr. Gaines Recommend starting Lovenox 100 mg subcutaneous every 12 for DVT prophylaxis and that was okay with neurosurgeon as well Continue coumain with INR 3.5, will hold coumadin today Will need to follow up with the coumadin clinic HTN (hypertension): controlled, cont current therapy. Hematochezia: Bright red blood per rectum reported earlier in admisison, which has now resolved. H/H has remained stable. Follow-up with GI as an outpatient Morbid obesity: Continued to recommend Weight loss. Right knee pain: Per previous attending note: Complaint right knee pain following a pop earlier this admission. Xray revealed no acute fracture. There is no clear abnormality on exam and patient is not reporting pain and is reporting that he can ambulate well around the room. No further investigation. Generalized knee pain now being reported as "compensation from avoiding pain in other joints" --one dose Toradol given above. Would not consistently use NSAIDs in setting of coumadin use to avoid bleeding risk. DVT prophylaxis On Coumadin medication error Apparently, another patient's insulin pen used on the patient Patient service excellence on board Patient would like to talk to infectious control again Infectious control was notified and will come tomorrow to talk to patient Disposition Patient has been waiting transfer to [facility] per patient's request because he did not like the care he is getting here I explained to him that he would not get a bed since he has been almost a week waiting for 1 that he is stable Spoke to therapist that said he was independent for bed mobility and supervision for sit. He was able to ambulate with supervision 20'x2 and 8'x10 which is typically the distance he ambulates at home. Both PT/OT feel home health would be appropriate if his can provide 24-hour supervision for safety and assist as she did prior to admission. Patient was not happy because I did not want to give 1.5 to 2 mg of Dilaudid, instead I ordered 0.5 mg prior to the MRI and the idea he might have to go home with home health that made him upset and called me pearl martino. Plan to discharge home tomorrow Admission and Anticipated Discharge Date Admission Date: July 05, 2021 Subjective Pt was seen and examined for follow up of CHF, pain, fall Lying in bed comfortable watching TV He said that he continues to have pain He called his while I was see him that I can update her He was concerned about if I discharged him what will I give him for pain and how many tablet I explained to him that I will have to verify the prescription monitor drug program to check when was last time he was given tramadol before prescribing any he said that he is able to walk back and forth to the bathroom by himself but not able to feed himself if he goes home I asked him who fed him while he is in the hospital he said he does it by himself He said his is fed up to help to do stuff for that is the reason he wants to go to rehab to get better before going home He said in the past Dr. Ching said if he has to change Suboxone to oxycodone to help him to go to rehab that he would change it I explained to him that I discussed this option with Dr. Ching that said absolutely not that he would not change the suboxone to oxycodone I explained to him that he is able to walk 20 feetx2 with therapy I explained to him being in the hospital put him at risk of infection such as Covid 19 I explained to him that he does not have any acute illness that requires him to stay in the hospital I spoke to case management to arrange for transport to get him ready to discharge He said that he will appeal the discharge because he will not go home Denies any chest pain, palpitation, dizziness, shortness of breath. Review of Systems Review of Systems: All systems reviewed & are unremarkable except as noted in Subjective Physical Exam Physical Exam: General- No acute distress Head- atraumatic, bruises and hematoma on the right forehead Eyes-right periorbital hematoma/bruises ENT- oropharynx clear Neck- supple, no JVD Lungs- clear to auscultation Heart- regular rhythm; no murmur Abdomen- normal bowel sounds, soft, nontender Extremities- no calf tenderness, LUE tenderness, Rob wrap in place Neuro- alert, oriented x 3; PERRL, EOMI; no facial palsy; no dysarthria Skin- warm & dry Results & Data Results & Data ([facility]) Vital Signs (Past 12 Hours) Vital Signs Temp Pulse Pulse Resp BP Pulse Ox 08/09/21 16:49 36.8 C 65 20 167/71 H 93 08/09/21 12:15 36.6 C 67 20 168/70 H 92 08/09/21 08:05 36.6 C 57 L 22 134/73 95
[2021-08-09] MEDS: MELATONIN 3 MG TAB PO PRN (20:50)
[2021-08-09] MEDS: INSULIN GLARGINE 100 UNIT/ML VIAL SC SCH (21:01)
[2021-08-09] MEDS: ONDANSETRON INJ 2 MG/ML 2 ML VIAL IV PRN (21:03)
[2021-08-10] MEDS: INSULIN ASPART 100 UNITS/ML 3 ML PEN SC SCH ×5 (02:07→20:54)
[2021-08-10] MEDS: traMADol HCL 50 MG TABLET PO PRN ×4 (03:53→21:00)
[2021-08-10] MEDS ORDERED: ACETAMINOPHEN 1000 MG/100 ML IV IV ONE (04:03)
[2021-08-10] MEDS: PANTOprazole 40 MG TAB PO SCH (06:19)
[2021-08-10 07:33] LABS: INR 2.8 (0.9-1.1); Prothrombin Time 26.4 Seconds (9.0-12.0)
[2021-08-10] MEDS: DULoxetine HCL 60 MG CAP PO SCH (08:37)
[2021-08-10] MEDS: GABAPENTIN 800 MG TAB PO SCH ×3 (08:38→20:44)
[2021-08-10] MEDS: METHENAMINE HIPPURATE 1 GM TAB PO SCH (08:39)
[2021-08-10] MEDS: FAMOTIDINE 20 MG TAB PO SCH (08:39)
[2021-08-10] MEDS: FINASTERIDE 5 MG TAB PO SCH (08:40)
[2021-08-10] MEDS: FOLIC ACID 1 MG TAB PO SCH (08:40)
[2021-08-10] MEDS: TAMSULOSIN HCL 0.4 MG CAP PO SCH (08:40)
[2021-08-10] MEDS: METOPROLOL SUCC 25MG EXT REL TAB PO SCH ×2 (08:41→20:46)
[2021-08-10] MEDS: ADVANCED PROBIOTIC 1250 MG CAPSULE PO SCH ×3 (08:41→20:45)
[2021-08-10] MEDS: FLUTICASONE/VILANTEROL 100/25MCG 14 PUFFS/INHALER INH SCH (08:42)
[2021-08-10] MEDS: guaiFENesin 600 MG TABCR PO SCH ×2 (08:42→20:44)
[2021-08-10] MEDS: FUROSEMIDE 40 MG TAB PO SCH ×2 (08:42→17:57)
[2021-08-10] MEDS: FLUTICASONE PROPIONATE NA SPR 16 GM BTL SCH (08:43)
[2021-08-10] MEDS: NICOTINE 21 MG/24 HR TDSY TD SCH (08:44)
[2021-08-10] MEDS: NYSTATIN SUSP 500,000 U/5 ML UDC PO SCH ×4 (08:45→20:47)
[2021-08-10] MEDS: POLYETHYLENE (MIRALAX) 17 GM PACK PO SCH (08:46)
[2021-08-10] MEDS: NYSTATIN POWDER 15GM BTL EXT SCH ×2 (08:46→20:46)
[2021-08-10] MEDS: DOCUSATE SODIUM 100 MG CAP PO SCH ×2 (08:47→20:52)
[2021-08-10] MEDS: ISOSORBIDE MONO EXTENDED REL 30 MG TABCR PO SCH (08:49)
[2021-08-10] MEDS: LORazepam 0.5 MG TAB PO PRN ×2 (09:01→20:53)
[2021-08-10] MEDS: buprenorphine HCL 8 MG SUBL SL SCH ×3 (09:01→21:01)
[2021-08-10] MEDS: UMECLIDINIUM BROMIDE 62.5MCG/BLISTER 7 PUFFS/INHALER INH SCH (09:01)
[2021-08-10] MEDS: ATORVASTATIN 40 MG TAB PO SCH (13:32)
[2021-08-10] MEDS ORDERED: WARFARIN SOD 10 MG TAB PO ONE (16:00)
--- NOTE | 2021-08-10 18:40 | Hospitalist Progress Note ---
Date of Service August 10, 2021 Assessment & Plan (1) Syncope: Plan: Status post fall Subgaleal hemorrhage Possible recurrent syncope likely vasovagal etiology Syncopal episode occurred while patient was at the commode 07/29/2021 No prodrome Patient and his significant other reports similar episodes at home Patient significant other reports possible seizure-like presentation when it happens No confusion after episodes CT head showed no acute intracerebral pathology. Compared to the previous examination, there is now a small to moderate-sized subgaleal hematoma anterior to the forehead. There is again evidence for sinusitis. Echocardiogram showed EF 60 to 65%, right ventricular systolic function is qualitatively normal, mild tricuspid regurgitation, Doppler findings do not suggest pulmonary hypertension Compared to previous study, there is no significant change EEG showed Normal appearing awake/drowsy EEG Previous hospitalist discussed with neurologist Dr. Dunham Syncope likely secondary to vasovagal etiology Carotid doppler study showed no hemodynamically significant stenosis or significant atherosclerotic plaquing. Normal antegrade vertebral flow bilaterally. Hospitalist discussed the case with neurosurgery in [place] for the subgaleal hemorrhage Neurosurgeon on-call at [facility] Dr. Nova, recommended to hold Coumadin for 3 days since time of fall, if with no clinical worsening, may resume Coumadin Recommended cardiology service evaluation, case was discussed with examiner of currency Dr. Penn-syncope felt to be secondary to vasovagal episode, Imdur held Tele monitor showed no arrhythmia No recurrence of presyncope, syncope No focal neuro deficit Clinically stable Left upper extremity pain/Swelling CT of the shoulder, humerus, elbow, forearm: No fractures Left upper extremity Doppler ultrasound: No DVT Rib x-ray: No acute fractures Orthopedic service consulted-likely secondary to contusion Pain management reconsulted as patient requesting additional pain medication No additional narcotic medication recommended at this pointpatient is at high risk for developing adverse effects with additional narcotic medication as per pain management They are okay with one-time additional narcotic before patient undergoes procedures/imaging studies For now, recommend to continue with Subutex, tramadol, as needed IV Tylenol Rob wrap as per pain management service recommendation Previous hospitalist team discussed plan in detail and at length with patient, he expressed frustration but was accepting with this plan of care Dr. Aguila reevaluate patient, recommend cervical spine x-ray and MRI Pt said that he will need IV dilaudid before going to the MRI, will give 0.5 mg x1 prior with the testing Refused to get MRI done last night since he did not get 1.5 to 2 mg of Dilaudid prior to the testing; he said the 0.5 mg will not help him to get the MRI done I explained to him the risks of giving too much Dilaudid while on Suboxone and tramadol such as unresponsiveness, respiratory distress, aspiration while lying in the MRI machine. I explained to him that I would have to document that he did not want to proceed with the MRI because he did not get 1.5 to 2 mg of Dilaudid. He already have an order of Dilaudid 0.5 mg to be given prior to the testing. As I was walking out of the door, he said that he would give the MRI a trial with the 0.5 mg Dilaudid He was not able to get the MRI done last night and schedule to get it done today Will give dialudid 1mg IVx1 prior with the MRI 08/10/21 MRI showed Mild multilevel intervertebral disc space narrowing with uncovertebra l spurring and facet arthrosis is generally stable from the comparison 07/12/2012 study. Multilevel neuroforaminal narrowing, mildly progressed at C6- C7. Mild central canal stenosis at C4-C5. CXR showed Mild degenerative changes without acute fracture or subluxation. Continue pain control as needed Acute on chronic diastolic heart failure: Presented with about 20 pounds weight gain in a few days with associated shortness of breath and increasing leg swelling Noted to have chest x-ray evidence of CHF Patient given IV Lasix with good response Continue Lasix 40mg BID and spironolactone 25 mg daily Continue monitor BMP Right breast skin fold rash Likely secondary to fungal infection, nystatin powder Possible bacterial infection, resolved, DC doxycycline Chronic pain disorder: Pain management reconsulted as patient requesting additional pain medication No additional narcotic medication recommended at this pointpatient is at high risk for developing adverse effects with additional narcotic medication as per pain management They are okay with one-time additional narcotic before patient undergoes procedures/imaging studies For now, recommend to continue with Subutex, tramadol, as needed IV Tylenol Pt was asking to transition to oxycodone in the time that he will be in rehab I spoke to Dr Ching pain management that said absolutely no that he would not transition him from Suboxone to oxycodone due to his past behavior for drug COPD exacerbation: Chronic respiratory failure with hypoxia--uses 4 L at bedtime and intermittently H/O COPD and felt to have a possible mild exacerbation on admission. Currently saturated well on RA Urinary tract infection associated with catheterization of urinary tract: H/O Indwelling Lloyd catheter with recurrent urinary tract infection, POA. Likely secondary to chronic Lloyd catheter Urine culture Enterococcus faecalis, nonfermenter species completed antibiotic course this admission DM type 2 (diabetes mellitus, type 2): Controlled as inpatient, cont current insulin regimen. Anticoagulated on Coumadin: H/O PE and DVT Coumadin was on hold due to subgaleal hematoma Per previous hospitalist discussion with [facility] neurosurgeon, Coumadin was on hold for at least 3 days Discussed case in detail and at length with weight checker Dr. Gaines Recommend starting Lovenox 100 mg subcutaneous every 12 for DVT prophylaxis and that was okay with neurosurgeon as well Continue coumain with INR 2.8, will hold coumadin today Will need to follow up with the coumadin clinic to monitor PT/INR HTN (hypertension): controlled, cont current therapy. Hematochezia: Bright red blood per rectum reported earlier in admisison, which has now resolved. H/H has remained stable. Follow-up with GI as an outpatient Morbid obesity: Continued to recommend Weight loss. Right knee pain: Per previous attending note: Complaint right knee pain following a pop earlier this admission. Xray revealed no acute fracture. There is no clear abnormality on exam and patient is not reporting pain and is reporting that he can ambulate well around the room. No further investigation. Generalized knee pain now being reported as "compensation from avoiding pain in other joints" --one dose Toradol given above. Would not consistently use NSAIDs in setting of coumadin use to avoid bleeding risk. DVT prophylaxis On Coumadin medication error Apparently, another patient's insulin pen used on the patient Patient service excellence on board Patient would like to talk to infectious control again Infectious control was notified and will come tomorrow to talk to patient Disposition Patient has been waiting transfer to [facility] per patient's request because he did not like the care he is getting here I explained to him that he would not get a bed since he has been almost a week waiting for 1 that he is stable Spoke to therapist that said he was independent for bed mobility and supervision for sit. He was able to ambulate with supervision 20'x2 and 8'x10 which is typically the distance he ambulates at home. Both PT/OT feel home health would be appropriate if his can provide 24-hour supervision for safety and assist as she did prior to admission. Patient was not happy because I did not want to give 1.5 to 2 mg of Dilaudid, instead I ordered 0.5 mg prior to the MRI and the idea he might have to go home with home health that made him upset and called me pearl martino. Discharge home today Admission and Anticipated Discharge Date Admission Date: July 05, 2021 Subjective Pt was seen and examined for follow up of CHF, pain, fall Lying in bed comfortable watching TV He said that he continues to have pain He said that he is able to walk back and forth to the bathroom He said that he does not feel ready to go home yet because his significant other is fed up taking care of him I explained to him being in the hospital put him at risk of infection such as Covid 19 I explained to him that he does not have any acute illness that requires him to stay in the hospital and he agreed I told him that we will contact his outpatient case management to try to arrange for [facility] at home He said that he will appeal the discharge because he will not go home Denies any chest pain, palpitation, dizziness, shortness of breath. Review of Systems Review of Systems: All systems reviewed & are unremarkable except as noted in Subjective Physical Exam Physical Exam: General- No acute distress Head- atraumatic, bruises and hematoma on the right forehead Eyes-right periorbital hematoma/bruises ENT- oropharynx clear Neck- supple, no JVD Lungs- clear to auscultation Heart- regular rhythm; no murmur Abdomen- normal bowel sounds, soft, nontender Extremities- no calf tenderness, LUE tenderness, Rob wrap in place Neuro- alert, oriented x 3; PERRL, EOMI; no facial palsy; no dysarthria Skin- warm & dry Results & Data Results & Data ([facility]) Vital Signs (Past 12 Hours) Vital Signs Temp Pulse Pulse Resp BP Pulse Ox 08/10/21 15:45 36.8 C 62 20 145/73 H 93 08/10/21 12:00 36.7 C 67 20 142/70 H 94 08/10/21 07:59 36.5 C 58 L 146/73 H 93
[2021-08-10] MEDS: MELATONIN 3 MG TAB PO PRN (20:52)
[2021-08-10] MEDS: INSULIN GLARGINE 100 UNIT/ML VIAL SC SCH (21:01)
[2021-08-10] MEDS: ACETAMINOPHEN 1000 MG/100 ML IV IV PRN (22:11)
[2021-08-11] MEDS: traMADol HCL 50 MG TABLET PO PRN ×3 (02:13→15:23)
[2021-08-11] MEDS: ONDANSETRON INJ 2 MG/ML 2 ML VIAL IV PRN (03:43)
[2021-08-11] MEDS: PANTOprazole 40 MG TAB PO SCH (06:25)
[2021-08-11 07:41] LABS: Prothrombin Time 18.8 Seconds (9.0-12.0)
[2021-08-11] MEDS: INSULIN ASPART 100 UNITS/ML 3 ML PEN SC SCH ×2 (09:16→12:13)
[2021-08-11] MEDS: FUROSEMIDE 40 MG TAB PO SCH (09:18)
[2021-08-11] MEDS: NYSTATIN SUSP 500,000 U/5 ML UDC PO SCH (09:18)
[2021-08-11] MEDS: NYSTATIN POWDER 15GM BTL EXT SCH (09:18)
[2021-08-11] MEDS: guaiFENesin 600 MG TABCR PO SCH (09:18)
[2021-08-11] MEDS ORDERED: METHENAMINE HIPPURATE 1 GM TAB PO SCH (11:00)
[2021-08-11] MEDS ORDERED: DULoxetine HCL 60 MG CAP PO SCH (11:00)
[2021-08-11] MEDS ORDERED: POLYETHYLENE (MIRALAX) 17 GM PACK PO SCH (11:00)
[2021-08-11] MEDS ORDERED: FLUTICASONE PROPIONATE NA SPR 16 GM BTL SCH (11:00)
[2021-08-11] MEDS ORDERED: FLUTICASONE/VILANTEROL 100/25MCG 14 PUFFS/INHALER INH SCH (11:00)
[2021-08-11] MEDS ORDERED: UMECLIDINIUM BROMIDE 62.5MCG/BLISTER 7 PUFFS/INHALER INH SCH (11:00)
[2021-08-11] MEDS ORDERED: ADVANCED PROBIOTIC 1250 MG CAPSULE PO SCH (11:00)
[2021-08-11] MEDS ORDERED: ISOSORBIDE MONO EXTENDED REL 30 MG TABCR PO SCH (11:00)
[2021-08-11] MEDS ORDERED: FINASTERIDE 5 MG TAB PO SCH (11:00)
[2021-08-11] MEDS ORDERED: GABAPENTIN 800 MG TAB PO SCH (11:00)
[2021-08-11] MEDS ORDERED: TAMSULOSIN HCL 0.4 MG CAP PO SCH (11:00)
[2021-08-11] MEDS ORDERED: FAMOTIDINE 20 MG TAB PO SCH (11:00)
[2021-08-11] MEDS ORDERED: DOCUSATE SODIUM 100 MG CAP PO SCH (11:00)
[2021-08-11] MEDS ORDERED: FOLIC ACID 1 MG TAB PO SCH (11:00)
[2021-08-11] MEDS ORDERED: NICOTINE 21 MG/24 HR TDSY TD SCH (11:00)
[2021-08-11] MEDS ORDERED: METOPROLOL SUCC 25MG EXT REL TAB PO SCH (11:00)
[2021-08-11] MEDS: buprenorphine HCL 8 MG SUBL SL SCH ×2 (12:02→14:57)
--- NOTE | 2021-08-11 12:02 | Discharge Summary ---
Date of Service August 11, 2021 Admission HPI Per Admitting Provider CHIEF COMPLAINT: Shortness of breath and weight gain. HISTORY OF PRESENT ILLNESS: This is a 50-year-old male with past medical history significant for recurrent PE, on Coumadin, complicated bronchitis, COPD, history of recurrent UTI secondary to BPH, chronic indwelling Lloyd catheter on chronic methenamine suppression, type 2 diabetes, history of traumatic subdural hematoma, subarachnoid hemorrhage in the setting of Coumadin coagulopathy, history of chronic diastolic congestive heart failure, CAD, hypertension, hyperlipidemia, chronic pain, history of drug seeking behavior, history of ongoing tobacco abuse, multiple medical admissions, comes because of shortness of breath. The patient was just recently discharged from the hospital on 06/14/2021, lives at home, come in, states that in the last few days, he gained about 20 pounds, not able to ambulate much, feeling short of breath. That is the reason he came to the hospital, sitting in chair, resting comfortably, complains of chronic on and off chest pain, on and off headache, chronic cough. Appetite is okay. In the last couple of days, he has some sore throat. No fevers, no nausea, no abdominal pain, normal bowel and bladder movements. Still smoking. Admission Exam Per Admitting Provider GENERAL: The patient is not in acute distress, morbidly obese, alert and orien andrew. VITAL SIGNS: Temperature 37.5, pulse 96, respiratory rate 16, blood pressure 141/72, oxygen 90% on room air. HEENT: Pupils equal, round and reactive to light. Oral mucosa moist. NECK: No JVD, no neck masses. CARDIOVASCULAR: S1 and S2 heard. Regular rate and rhythm. No murmur, no gallop. RESPIRATORY SYSTEM: Normal AP diameter. No accessory muscle use. No wheezing, no crackles. ABDOMEN: Soft, bowel sounds present, nontender, no distention. CENTRAL NERVOUS SYSTEM: Cranial nerves II through XII are grossly intact, nonfocal. EXTREMITIES: Bilateral lower extremity gross pedal edema present, no erythema seen. Principal Diagnosis Syncope Acute on chronic diastolic CHF exacerbation Acute on chronic COPD exacerbation, mild History of PE and DVT on Coumadin Status post fall, right forehead hematoma Discharge Exam General- No acute distress Head- atraumatic, bruises and hematoma on the right forehead Eyes-right periorbital hematoma/bruises ENT- oropharynx clear Neck- supple, no JVD Lungs- clear to auscultation Heart- regular rhythm; no murmur Abdomen- normal bowel sounds, soft, nontender Extremities- no calf tenderness, LUE tenderness, Rob wrap in place Neuro- alert, oriented x 3; PERRL, EOMI; no facial palsy; no dysarthria Skin- warm & dry Discharge Data Allergies Allergy/AdvReac Type Severity Reaction Status Date / Time cefepime Allergy Intermediate rash Verified 07/05/21 02:32 daptomycin Allergy Intermediate rash Verified 07/05/21 02:32 fentanyl Allergy Intermediate RASH/HIVES/SKIN Verified 07/05/21 02:32 REDNESS naloxone AdvReac Severe extremely Verified 07/05/21 02:32 sick acetaminophen [From Tylenol] AdvReac Intermediate IRRITATES Verified 07/05/21 02:32 & UPSET STOMACH ibuprofen AdvReac Intermediate Nausea Verified 07/05/21 02:32 valproic acid AdvReac Intermediate PANCREATITS Verified 07/05/21 02:32 Consultations 07/05/21 03:55 ED Decision to Admit Stat 07/16/21 17:07 Consult Pain Management Routine 07/30/21 12:56 Consult Neurology Routine 07/30/21 14:50 Consult Orthopedic Surgery Routine 07/31/21 11:18 Consult Cardiology Routine 07/31/21 15:40 Consult Pain Management Routine Ordered Studies 07/16/21 22:36 US venous doppler LE LT Routine 07/29/21 14:07 CT head/brain wo con Stat 07/30/21 09:27 CT head/brain wo con Stat 07/30/21 10:14 CT shoulder LT wo con Routine 07/30/21 10:19 CT elbow LT wo con Routine CT forearm LT wo con Routine CT humerus LT wo con Routine 08/01/21 11:47 US venous doppler UE LT Stat 08/01/21 13:58 US carotid doppler BI Routine 08/08/21 15:10 MR cervical spine wo con Routine MR cervical spine wo con HISTORY: 51 years-old Male rule out cervical radiculopathy. Acute neck injury status post fall. COMPARISON: Cervical spine radiographs of same day, MRI cervical spine 07/12/2012 TECHNIQUE: Multiplanar, multisequence MRI of the cervical spine was obtained without the use of IV contrast. FINDINGS: Motion degraded exam. Crossword Puzzle Maker localizer images demonstrate no gross extraspinal abnormality. No acute fracture, subluxation, bone marrow or soft tissue edema. Signal within the cervical and imaged thoracic spinal cord appears normal. There is mild multilevel intervertebral disc space narrowing. The study is limited secondary to motion artifact and patient body habitus. Left mastoid effusion. Mediastinal lipomatosis. Straightening of the cervical lordosis. C2-C3: Mild uncovertebral spurring and facet arthrosis. The central canal and right neural foramen are patent. Mild left neural foraminal narrowing is unchanged. C3-C4: Mild uncovertebral spurring and facet arthrosis. The central canal is patent. Unchanged mild right with moderate left neuroforaminal narrowing. C4-C5: Small posterior disc osteophyte complex with mild facet arthrosis. Flattening of the ventral thecal sac results in mild central canal stenosis with AP dimension measuring 8 mm. Unchanged moderate to severe bilateral neural foraminal narrowing. C5-C6: Mild uncovertebral spurring and facet arthrosis. Mild flattening of the ventral thecal sac without significant central canal narrowing. Unchanged mild to moderate bilateral neural foraminal narrowing. C6-C7: Small left lateral recess/left foraminal disc osteophyte complex with mild uncovertebral spurring and facet arthrosis. The central canal is patent. There is a least mild narrowing of the left lateral recess. Mild to moderate right with moderate to severe left neural foraminal narrowing, mildly progressed. C7-T1: Mild uncovertebral spurring and facet arthrosis. The central canal and neural foramina are patent. IMPRESSION: 1. Limited study as above. 2. Mild multilevel intervertebral disc space narrowing with uncovertebral spurring and facet arthrosis is generally stable from the comparison 07/12/2012 study. 3. Multilevel neuroforaminal narrowing, mildly progressed at C6-C7. 4. Mild central canal stenosis at C4-C5. ACT 112: Negative or not required by law. The above report was generated using voice recognition software. It may contain grammatical, syntax or spelling errors. Dictated: 08/08/2021 9:12 PM Transcribed: 08/08/2021 10:12 PM Sarina [id number] [email or web address] Electronically signed by: Shelton Apodaca M.D. 08/08/2021 10:41 PM Dictated:08/08/212111 Transcribed: 08/08/212211 XR cervical spine 2 or 3V HISTORY: 51 years-old Male s/p fall acute neck pain status post fall COMPARISON: MRI cervical spine of same day TECHNIQUE: 3 views of the cervical spine FINDINGS: No acute fracture, subluxation or endplate erosion. The lower cervical segments are suboptimally visualized secondary to overlying soft tissue. No prevertebral edema. There is mild multilevel intervertebral disc space narrowing with uncovertebral spurring and facet arthrosis. Unremarkable soft tissues. Lung apices are clear. Left carotid calcifications. IMPRESSION: Mild degenerative changes without acute fracture or subluxation. ACT 112: Negative or not required by law. The above report was generated using voice recognition software. It may contain grammatical, syntax or spelling errors. Electronically signed by: Shelton Apodaca M.D. 08/08/2021 8:23 PM Dictated:08/08/212021 Transcribed: 08/08/212021 XR ribs LT min 2V w CXR1V CLINICAL HISTORY: collar bone/upper ribs pain, evaluate for fracture. COMPARISON STUDY: Portable chest from 07/28/2021 TECHNIQUE: Frontal view of the chest. Left rib series is performed. FINDINGS: Single frontal view of the chest demonstrates the cardiomediastinal silhouette to be within normal limits. The lungs are clear of acute infiltrates. There is no evidence for pleural effusion. There is no evidence for vascular congestion. There is evidence for old healed fracture of the midshaft of the clavicle with posttraumatic deformity present. Multiple views of the ribs demonstrate no evidence for displaced fracture. IMPRESSION: No acute chest disease. No evidence for rib fracture. Old, healed left clavicular fracture. ACT 112: Negative or not required by law. Electronically signed by: Sandip Chawla M.D. 08/02/2021 3:50 PM Dictated:08/02/21 1546 Transcribed: 08/02/21 154 US carotid doppler BI CLINICAL HISTORY: 51 years-old Male with syncope. COMPARISON: Carotid Doppler 02/26/2016 TECHNIQUE: Multiple real time sonographic images of the carotid bifurcations were obtained assessing [place] scale, color Doppler and spectral wave form appearance FINDINGS: RIGHT CAROTID: The peak systolic velocity measured within the right ICA is100 cm/sec. The end diastolic velocity measured 12 cm/sec. The ICA to CCA ratio measured 1.2 which correlates with a stenosis of 0-50%. LEFT CAROTID: The peak systolic velocity measured within the left ICA is64 cm/sec. The end diastolic velocity measured 10.6 cm/sec. The ICA to CCA ratio measured 0.7 which correlates with a stenosis of 0-50%. There is normal antegrade vertebral flow bilaterally. Blood pressure on the right measured at 135/69 and on the left measured at 141/70. IMPRESSION: 1. No hemodynamically significant stenosis or significant atherosclerotic plaquing. 2. Normal antegrade vertebral flow bilaterally. ACT 112: Negative or not required by law. The above report was generated using voice recognition software. It may contain grammatical, syntax or spelling errors. Electronically signed by: Shelton Apodaca M.D. 08/01/2021 3:25 PM Dictated:08/01/21 1523 Transcribed: 08/01/21 152 US venous doppler UE LT HISTORY: 51 years-old Male LUE pain/swelling, r/o dvt acute pain and swelling of the left upper extremity COMPARISON: 07/05/2018 TECHNIQUE: Multiple real-time sonographic images of the left upper cavity deep venous structures were obtained assessing grayscale appearance, color and spectral flow FINDINGS: Normal flow, compressibility, and phasicity. IMPRESSION: No DVT ACT 112: Negative or not required by law. The above report was generated using voice recognition software. It may contain grammatical, syntax or spelling errors. Electronically signed by: Shelton Apodaca M.D. 08/01/2021 1:16 PM Dictated:08/01/21 1315 Transcribed: 08/01/[address] shoulder LT wo con, CT humerus LT wo con, CT forearm LT wo con, CT elbow LT wo con CLINICAL HISTORY: fall, pain, r/o fracture left arm pain from shoulder to wrist TECHNIQUE: Multidetector row helical CT of the left shoulder, humerus, elbow, and forearm was performed without intravenous contrast. Coronal and sagittal reformations were obtained. Automated dose lowering techniques and/or adjustment according to patient size were utilized for this examination. Comparison: Comparison is made to humerus radiographs 06/28/2021 FINDINGS: The osseous structures are without fracture or dislocation. No joint effusion is seen. The joint spaces are maintained. The soft tissues are unremarkable. IMPRESSION: No evidence of acute fracture or dislocation. ACT 112: Negative or not required by law. Electronically signed by: Armand Tobar M.D. 07/30/2021 11:37 AM Dictated:07/30/211128 Transcribed: 07/30/211128 CT shoulder LT wo con, CT humerus LT wo con, CT forearm LT wo con, CT elbow LT wo con CLINICAL HISTORY: fall, pain, r/o fracture left arm pain from shoulder to wrist TECHNIQUE: Multidetector row helical CT of the left shoulder, humerus, elbow, and forearm was performed without intravenous contrast. Coronal and sagittal reformations were obtained. Automated dose lowering techniques and/or adjustment according to patient size were utilized for this examination. Comparison: Comparison is made to humerus radiographs 06/28/2021 FINDINGS: The osseous structures are without fracture or dislocation. No joint effusion is seen. The joint spaces are maintained. The soft tissues are unremarkable. IMPRESSION: No evidence of acute fracture or dislocation. ACT 112: Negative or not required by law. Electronically signed by: Armand Tobar M.D. 07/30/2021 11:37 AM Dictated:07/30/211128 Transcribed: 07/30/211128 CT shoulder LT wo con, CT humerus LT wo con, CT forearm LT wo con, CT elbow LT wo con CLINICAL HISTORY: fall, pain, r/o fracture left arm pain from shoulder to wrist TECHNIQUE: Multidetector row helical CT of the left shoulder, humerus, elbow, and forearm was performed without intravenous contrast. Coronal and sagittal reformations were obtained. Automated dose lowering techniques and/or adjustment according to patient size were utilized for this examination. Comparison: Comparison is made to humerus radiographs 06/28/2021 FINDINGS: The osseous structures are without fracture or dislocation. No joint effusion is seen. The joint spaces are maintained. The soft tissues are unremarkable. IMPRESSION: No evidence of acute fracture or dislocation. ACT 112: Negative or not required by law. Electronically signed by: Armand Tobar M.D. 07/30/2021 11:37 AM Dictated:07/30/211128 Transcribed: 07/30/211128 CT shoulder LT wo con, CT humerus LT wo con, CT forearm LT wo con, CT elbow LT wo con CLINICAL HISTORY: fall, pain, r/o fracture left arm pain from shoulder to wrist TECHNIQUE: Multidetector row helical CT of the left shoulder, humerus, elbow, and forearm was performed without intravenous contrast. Coronal and sagittal reformations were obtained. Automated dose lowering techniques and/or adjustment according to patient size were utilized for this examination. Comparison: Comparison is made to humerus radiographs 06/28/2021 FINDINGS: The osseous structures are without fracture or dislocation. No joint effusion is seen. The joint spaces are maintained. The soft tissues are unremarkable. IMPRESSION: No evidence of acute fracture or dislocation. ACT 112: Negative or not required by law. Electronically signed by: Armand Tobar M.D. 07/30/2021 11:37 AM Dictated:07/30/211128 Transcribed: 07/30/211128 CT head/brain wo con CLINICAL HISTORY: Status post fall yesterday. Forehead laceration. Evaluate for hemorrhage. COMPARISON STUDY: 07/29/2021 CT DOSE: 601.98 mGy.cm TECHNIQUE: Standard CT of the Brain was performed without IV contrast. A dose lowering technique was utilized adhering to the principles of ALARA. FINDINGS: Extraaxial space: There is no evidence for subdural hematoma. There are no extra-axial fluid collections. Ventricles and cisterns: The ventricles are normal in size and configuration. There is no evidence for midline shift or mass effect. Parenchyma: There is no subarachnoid or intraparenchymal hemorrhage. There is no evidence for an acute infarct or cerebral edema. There is homogeneous attenuation of the brain parenchyma. There are no gross mass lesions. Osseous structures: There is no evidence for an acute fracture. There is again opacification right sphenoid sinus with mucosal thickening of the right maxillary and ethmoid sinuses. The remaining visualized paranasal sinuses are clear. The mastoid air cells are clear bilaterally. Soft tissues: Compared to previous examination, there is now a small to moderate-sized subgaleal hematoma anterior to the forehead. IMPRESSION: No acute intracerebral pathology. Compared to the previous examination, there is now a small to moderate-sized subgaleal hematoma anterior to the forehead. There is again evidence for sinusitis. ACT 112: Negative or not required by law. Electronically signed by: Sandip Chawla M.D. 07/30/2021 11:12 AM Dictated:07/30/211107 Transcribed: 07/30/211107 XR forearm LT 2V, XR humerus LT 2V CLINICAL HISTORY: fall TECHNIQUE: 2 views of the right forearm were obtained. 2 views of the left humerus were obtained. Comparison: None available at the time of this dictation. FINDINGS: There is no evidence of acute fracture or dislocation. The visualized joint spaces are well-maintained. The alignment is anatomical. The visualized soft tissues are unremarkable. There are no osseous lesions or erosions identified. IMPRESSION: No evidence of acute bony injury. ACT 112: Negative or not required by law. Electronically signed by: Armand Tobar M.D. 07/29/2021 4:00 PM Dictated:07/29/21 1553 Transcribed: 07/29/[address] SCAN OF THE BRAIN WITHOUT IV CONTRAST CLINICAL HISTORY: Fall. Head injury. COMPARISON STUDY: CT of the brain dated 06/09/2021. TECHNIQUE: Unenhanced axial CT scan of the brain is performed from the vertex to the skull base. A dose lowering technique was utilized adhering to the principles of ALARA. CT DOSE: 712.55 mGy.cm FINDINGS: Brain parenchyma: The brain parenchyma is normal in appearance. There is no hemorrhage, mass effect, or evidence of acute territorial ischemia by CT criteria. [place]-white matter differentiation is preserved. No extra-axial fluid collection is seen. Ventricles, sulci, cisterns: Normal in configuration. Intracranial vasculature: The visualized intracranial vasculature at the skull base is normal in appearance. Calvarium: There is no depressed calvarial fracture. Soft tissues: There is frontal scalp hematoma. Sinuses and mastoids: There is subtotal opacification of the right maxillary antrum and the right sphenoid sinus. There is moderate mucosal thickening within the ethmoid sinuses. Trace mucosal thickening is seen within the frontal, left maxillary, and the sphenoid sinuses. Question previous paranasal sinus surgery. There is a small left mastoid effusion. The right mastoid air cells are well pneumatized. Orbits: The bony orbits are grossly intact. IMPRESSION: 1. There is no hemorrhage, mass effect, or evidence of acute territorial ischemia by CT criteria. 2. Frontal scalp injury. 3. Paranasal sinus disease as above. ACT 112: Negative or not required by law. Electronically signed by: Misael Lopez M.D. 07/29/2021 3:33 PM Dictated:07/29/21 1529 Transcribed: 07/29/21 1529 XR forearm LT 2V, XR humerus LT 2V CLINICAL HISTORY: fall TECHNIQUE: 2 views of the right forearm were obtained. 2 views of the left humerus were obtained. Comparison: None available at the time of this dictation. FINDINGS: There is no evidence of acute fracture or dislocation. The visualized joint spaces are well-maintained. The alignment is anatomical. The visualized soft tissues are unremarkable. There are no osseous lesions or erosions identified. IMPRESSION: No evidence of acute bony injury. ACT 112: Negative or not required by law. Electronically signed by: Armand Tobar M.D. 07/29/2021 4:00 PM Dictated:07/29/21 1553 Transcribed: 07/29/21 1558 XR chest 1V portable CLINICAL HISTORY: coigh. COMPARISON STUDY: 07/25/2021 TECHNIQUE: 1 view of the chest FINDINGS: Single frontal view of the chest demonstrates the cardiomediastinal silhouette to be within normal limits. There is a decreased inspiratory effort with elevation of the hemidiaphragms and crowding of the bronchovascular markings at the lung bases and centrally. The lungs are clear of alveolar opacities. There is no evidence for pleural effusion. There is no evidence for vascular congestion. There is no acute osseous pathology. IMPRESSION: There is a decreased inspiratory effort with otherwise no acute chest disease. ACT 112: Negative or not required by law. Electronically signed by: Sandip Chawla M.D. 07/29/2021 7:06 AM Dictated:07/29/21704 Transcribed: 07/29/21704 US venous doppler LE LT HISTORY: 51 years-old Male LE pain acute pain and swelling of the left lower extremity COMPARISON: None TECHNIQUE: Multiple real-time sonographic images of the left lower extremity deep venous structures were obtained assessing grayscale appearance, color and spectral flow FINDINGS: Normal flow, compressibility, phasicity and augmentation. Limited visualization of the calf veins secondary to patient body habitus. IMPRESSION: No sonographic evidence of deep venous thrombosis. ACT 112: Negative or not required by law. The above report was generated using voice recognition software. It may contain grammatical, syntax or spelling errors. Electronically signed by: Shelton Apodaca M.D. 07/17/2021 6:41 AM Dictated:07/17/21639 Transcribed: 07/17/21639 Hospital Course (1) Syncope: Status post fall Subgaleal hemorrhage Possible recurrent syncope likely vasovagal etiology Syncopal episode occurred while patient was at the commode 07/29/2021 No prodrome Patient and his significant other reports similar episodes at home Patient significant other reports possible seizure-like presentation when it happens No confusion after episodes CT head showed no acute intracerebral pathology. Compared to the previous examination, there is now a small to moderate-sized subgaleal hematoma anterior to the forehead. There is again evidence for sinusitis. Echocardiogram showed EF 60 to 65%, right ventricular systolic function is qualitatively normal, mild tricuspid regurgitation, Doppler findings do not suggest pulmonary hypertension Compared to previous study, there is no significant change EEG showed Normal appearing awake/drowsy EEG Previous hospitalist discussed with neurologist Dr. Dunham Syncope likely secondary to vasovagal etiology Carotid doppler study showed no hemodynamically significant stenosis or significant atherosclerotic plaquing. Normal antegrade vertebral flow bilaterally. Hospitalist discussed the case with neurosurgery in [place] for the subgaleal hemorrhage Neurosurgeon on-call at [facility] Dr. Nova, recommended to hold Coumadin for 3 days since time of fall, if with no clinical worsening, may resume Coumadin Recommended cardiology service evaluation, case was discussed with flame channeler Dr. Penn-syncope felt to be secondary to vasovagal episode, Imdur held Tele monitor showed no arrhythmia No recurrence of presyncope, syncope No focal neuro deficit Clinically stable Left upper extremity pain/Swelling CT of the shoulder, humerus, elbow, forearm: No fractures Left upper extremity Doppler ultrasound: No DVT Rib x-ray: No acute fractures Orthopedic service consulted-likely secondary to contusion Pain management reconsulted as patient requesting additional pain medication No additional narcotic medication recommended at this pointpatient is at high risk for developing adverse effects with additional narcotic medication as per pain management They are okay with one-time additional narcotic before patient undergoes procedures/imaging studies For now, recommend to continue with Subutex, tramadol, as needed IV Tylenol Rob wrap as per pain management service recommendation Previous hospitalist team discussed plan in detail and at length with patient, he expressed frustration but was accepting with this plan of care Dr. Aguila reevaluate patient, recommend cervical spine x-ray and MRI Pt said that he will need IV dilaudid before going to the MRI, will give 0.5 mg x1 prior with the testing Refused to get MRI done last night since he did not get 1.5 to 2 mg of Dilaudid prior to the testing; he said the 0.5 mg will not help him to get the MRI done I explained to him the risks of giving too much Dilaudid while on Suboxone and tramadol such as unresponsiveness, respiratory distress, aspiration while lying in the MRI machine. I explained to him that I would have to document that he did not want to proceed with the MRI because he did not get 1.5 to 2 mg of Dilaudid. He already have an order of Dilaudid 0.5 mg to be given prior to the testing. As I was walking out of the door, he said that he would give the MRI a trial with the 0.5 mg Dilaudid He was not able to get the MRI done last night and schedule to get it done today Will give dialudid 1mg IVx1 prior with the MRI 08/10/21 MRI showed Mild multilevel intervertebral disc space narrowing with uncovertebra l spurring and facet arthrosis is generally stable from the comparison 07/12/2012 study. Multilevel neuroforaminal narrowing, mildly progressed at C6- C7. Mild central canal stenosis at C4-C5. CXR showed Mild degenerative changes without acute fracture or subluxation. Continue pain control as needed Acute on chronic diastolic heart failure: Presented with about 20 pounds weight gain in a few days with associated shortness of breath and increasing leg swelling Noted to have chest x-ray evidence of CHF Patient given IV Lasix with good response Continue Lasix 40mg BID and spironolactone 25 mg daily Continue monitor BMP Right breast skin fold rash Likely secondary to fungal infection, nystatin powder Possible bacterial infection, resolved, DC doxycycline Chronic pain disorder: Pain management reconsulted as patient requesting additional pain medication No additional narcotic medication recommended at this pointpatient is at high risk for developing adverse effects with additional narcotic medication as per pain management They are okay with one-time additional narcotic before patient undergoes procedures/imaging studies For now, recommend to continue with Subutex, tramadol, as needed IV Tylenol Pt was asking to transition to oxycodone in the time that he will be in rehab I spoke to Dr Ching pain management that said absolutely no that he would not transition him from Suboxone to oxycodone due to his past behavior for drug COPD exacerbation: Chronic respiratory failure with hypoxia--uses 4 L at bedtime and intermittently H/O COPD and felt to have a possible mild exacerbation on admission. Currently saturated well on RA Urinary tract infection associated with catheterization of urinary tract: H/O Indwelling Lloyd catheter with recurrent urinary tract infection, POA. Likely secondary to chronic Lloyd catheter Urine culture Enterococcus faecalis, nonfermenter species completed antibiotic course this admission DM type 2 (diabetes mellitus, type 2): Controlled as inpatient, cont current insulin regimen. Anticoagulated on Coumadin: H/O PE and DVT Coumadin was on hold due to subgaleal hematoma Per previous hospitalist discussion with [facility] neurosurgeon, Coumadin was on hold for at least 3 days Discussed case in detail and at length with employment attorney Dr. Gaines Recommend starting Lovenox 100 mg subcutaneous every 12 for DVT prophylaxis and that was okay with neurosurgeon as well Continue coumain with INR 2 will hold coumadin today Will need to follow up with the coumadin clinic to monitor PT/INR Continue Comadin 10mg alternating to 7.5 mg HTN (hypertension): controlled, cont current therapy. Hematochezia: Bright red blood per rectum reported earlier in admisison, which has now resolved. H/H has remained stable. Follow-up with GI as an outpatient Morbid obesity: Continued to recommend Weight loss. Right knee pain: Per previous attending note: Complaint right knee pain following a pop earlier this admission. Xray revealed no acute fracture. There is no clear abnormality on exam and patient is not reporting pain and is reporting that he can ambulate well around the room. No further investigation. Generalized knee pain now being reported as "compensation from avoiding pain in other joints" --one dose Toradol given above. Would not consistently use NSAIDs in setting of coumadin use to avoid bleeding risk. DVT prophylaxis On Coumadin medication error Apparently, another patient's insulin pen used on the patient Patient service excellence on board Patient would like to talk to infectious control again Infectious control was notified and was scheduled to have a meeting with him and + friend, unfortunately cannot make it today Spoke to infection control and someone from risk management that will check with him before discharging today Disposition Patient has been waiting transfer to [facility] per patient's request because he did not like the care he is getting here I explained to him that he would not get a bed since he has been almost a week waiting for 1 that he is stable Spoke to therapist that said he was independent for bed mobility and supervision for sit. He was able to ambulate with supervision 20'x2 and 8'x10 which is typically the distance he ambulates at home. Both PT/OT feel home health would be appropriate if his can provide 24-hour supervision for safety and assist as she did prior to admission. Patient was not happy because I did not want to give 1.5 to 2 mg of Dilaudid, instead I ordered 0.5 mg prior to the MRI and the idea he might have to go home with home health that made him upset and called me pearl martino. Discharge home today Total Time Total Time Spent Total Time Spent (In Minutes): 40 minutes Discharge Plan Discharge Items Patient Disposition: Home - Self-Care Reason For Visit: SHORTNESS OF BREATH Discharge Diagnosis: Syncope Acute on chronic diastolic CHF exacerbation Acute on chronic COPD exacerbation, mild History of PE and DVT on Coumadin Status post fall, right forehead hematoma Activity: Resume your previous activity Activity Comment: Continue PT and OT evaluation, fall precautions Non-emergency contact: Primary Care Provider Call non-emergency contact if: you have any medication questions, your symptoms worsen, your pain is not controlled, your pain is worsening, your pain is unusual for you, your pain is concerning for you and you have a fever Follow-up/Referrals: Roberto Askew MD [Primary Care Provider] - (Date & Time 08/13/2021 10:40 AM Provider Sylwia Luevano MD Department General Internal Medicine [facility] ) Diet: Heart Healthy Addtl Attending Provider Instructions: Follow up with your primary care provider Dr. Luevano on 08/13/2021 at 10:40 AM Provider at the General Internal Medicine [facility] Follow up with the coumadin clinic to monitor your PT/INR (Take coumadin 10mg On Wednesday//Wednesday alternating with 7.5 mg on Wednesday, Wednesday, Wednesday and Wednesday Continue physical and occupational therapy Fall precaution Counseling on weight loss Hold next dose of tramadol if you become drowsy and lethargy Do not drive or operate any machine while taking tramadol and Suboxone Discharge home with Lloyd catheter Counseling on smoking cessation We will notify [facility] Pending Studies at Discharge: No Stand-Alone Forms: My [facility], Smoking Cessation Medications and DC Order Prescriptions: Continued ondansetron HCl [Zofran] 4 mg tablet 4 mg PO Q8 PRN (Reason: Nausea And Vomiting) Qty: 30 RF: 0 polyethylene glycol 3350 [Miralax] 17 gram powder in packet 17 g PO QAM RF: 0 nitroglycerin [Nitrostat] 0.4 mg tablet, sublingual 0.4 mg Sublingual DIRECTED PRN (Reason: CHEST PAIN) RF: 0 nystatin 100,000 unit/gram Powder 1 applic TOPICAL TID PRN (Reason: Skin Irritation) RF: 0 cyclobenzaprine 10 mg Tablet 10 mg PO BID PRN (Reason: Muscle Spasm) RF: 0 ipratropium-albuterol 0.5 mg-3 mg(2.5 mg base)/3 mL Solution For Nebulization 3 ml INHALATION Q6H PRN (Reason: Shortness Of Breath Or Wheezing) RF: 0 docusate sodium 100 mg Capsule 100 mg PO BID RF: 0 duloxetine 60 mg capsule,delayed release(DR/EC) 60 mg PO DAILY RF: 0 famotidine 20 mg tablet 20 mg PO DAILY RF: 0 methenamine hippurate 1 gram tablet 1 g PO DAILY RF: 0 fluticasone propionate 50 mcg/actuation spray,suspension 2 spray Intranasal DAILY RF: 0 aspirin [Ecotrin Low Strength] 81 mg tablet,delayed release (DR/EC) 81 mg PO QAM RF: 0 Spiriva with HandiHaler 18 mcg capsule, w/inhalation device 1 puff inhalation QAM RF: 0 finasteride 5 mg tablet 5 mg PO QAM RF: 0 tamsulosin [Flomax] 0.4 mg Capsule 0.4 mg PO QAM RF: 0 metoprolol succinate 50 mg Tablet Extended Release 24 Hr 75 mg PO BID RF: 0 spironolactone 25 mg Tablet 25 mg PO QAM RF: 0 atorvastatin 80 mg tablet 80 mg PO QPM RF: 0 sennosides [senna] 8.6 mg Tablet 8.6 mg PO DAILY PRN (Reason: Constipation) RF: 0 folic acid 1 mg Tablet 1 mg PO QAM RF: 0 furosemide [Lasix] 40 mg tablet 40 mg PO BID RF: 0 lorazepam 0.5 mg tablet 0.5 mg PO Q8 PRN (Reason: Anxiety) RF: 0 potassium chloride 20 mEq Tablet Extended Release 20 meq PO BID RF: 0 albuterol sulfate 90 mcg/actuation Hfa Aerosol Inhaler 2 puff INHALATION Q4 PRN (Reason: Dyspnea) RF: 0 omeprazole 20 mg Capsule,Delayed Release(Dr/Ec) 20 mg PO DAILYBB RF: 0 gabapentin 800 mg tablet 800 mg PO TID RF: 0 warfarin 5 mg tablet 2.5 mg PO DIRECTED RF: 0 buprenorphine HCl 8 mg tablet, sublingual 8 mg SUBLINGUAL TID RF: 0 isosorbide mononitrate 30 mg Tablet Extended Release 24 Hr 30 mg PO DAILY RF: 0 glipizide 10 mg tablet 10 mg PO BID RF: 0 Lantus Solostar U-100 Insulin 100 unit/mL (3 mL) Insulin Pen 50 unit SC HS 30 Days Qty: 15 RF: 3 Breo Ellipta 100-25 mcg/dose Blister With Device 1 ea inhalation DAILY Qty: 28 RF: 2 (DME) insulin admin supplies Insulin Pen See Rx Instructions .ROUTE .MEDSUPPLY Qty: 1 RF: 0 nicotine 21 mg/24 hr patch 24 hour 1 patch transdermal DAILY Qty: 28 RF: 0 Lactinex 1 million cell tablet,chewable 1 tab PO TID Qty: 30 RF: 0 ergocalciferol (vitamin D2) 1,250 mcg (50,000 unit) capsule 1,250 mcg PO WK RF: 0 tramadol 50 mg tablet 50 mg PO Q6 PRN (Reason: Pain) Qty: 20 RF: 0 Discharge Orders: Discharge Order (Routine); Ordered 08/10/21 Ordered By: Xu Pickering/Other Patient Handouts: Heart Failure Making Changes to ... Admission Data Admit Date/Time: 07/05/21 04:44 Attending Provider: Xu Silvestre Admit Provider: Everardo Ibarra Primary Care Provider: Roberto Askew Other Providers: [facility] [facility] ; Dipesh Wright ; [facility] ; Davide Velazquez ; Romulo Clark ; Everardo Ibarra ; Theron Ching ; Siva Dunham ; Sj Sauceda ; Walker Gilmore ; Michael Parrish ; Tisha Hernandez ; Jacob Aguila ; Milka Peterson ; Vimal Vickers ; Frank Obregon ; Owen Klein ; Stan Gann. ; Frank Urbina ; Manuel Avitia ; Desean Schaeffer ; Aric Amaro ; Senthil Purdy ; Milka Farias ; Cosme Spivey ; Harsha Nielsen ; Julieth Suarez ; Lit Guevara ; Tosin Ramon ; Shelton Conner ; Jacob Penn ; Keren Cao
[2021-08-11] MEDS: ACETAMINOPHEN 1000 MG/100 ML IV IV PRN (12:12)
[2021-08-11] MEDS ORDERED: WARFARIN SOD 7.5 MG TAB PO SCH (16:00)
[2021-08-12] MEDS ORDERED: WARFARIN SOD 10 MG TAB PO SCH (16:00)
== END 2021-08-11 15:56 | disposition home or self-care (01) | DRG 698 ==
LOC: ED 01:36 → SUATTDRO 04:44 → EDINP 04:44 → 2S 06:01 → 2W 07-11 16:03 → 4W 07-15 03:39 → 3E 07-15 03:41 → 1E 07-30 12:59 → 2W 08-03 23:49 → 2N 08-08 00:52

== ENCOUNTER 2021-10-24 17:08 | Inpatient (IN) ==
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
[2021-10-24 18:02] LABS: Basophils # (auto) 0.03 K/uL (0-0.2); Basophils % (auto) 0.3 %; Eosinophils # (auto) 0.28 K/uL (0-0.5); Eosinophils % (auto) 2.4 %; Hematocrit (blood only) 39.2 % (42-52); Hemoglobin 11.9 g/dL (14.0-18.0); Immature Granulocytes # (auto) 0.03 K/uL (0.00-0.02); Immature Granulocytes % (auto) 0.3 %; Lymphocytes # (auto) 2.55 K/uL (1.2-3.4); Lymphocytes % (auto) 21.4 %; Mean Corpuscular Hemoglobin 25.2 pg (25-34); Mean Corpuscular Hgb Conc 30.4 g/dL (32-36); Mean Corpuscular Volume 82.9 fL (80-100); Mean Platelet Volume 9.8 fL (7.4-10.4); Monocytes # (auto) 1.11 K/uL (0.11-0.59); Monocytes % (auto) 9.3 %; Neutrophils # (auto) 7.89 K/uL (1.4-6.5); Neutrophils % (auto) 66.3 %; Platelet Count 278 K/uL (130-400); RDW Coefficient of Variation 18.6 % (11.5-14.5); RDW Standard Deviation 57.1 fL (36.4-46.3); Red Blood Count 4.73 M/uL (4.7-6.1); White Blood Count 11.89 K/uL (4.8-10.8)
[2021-10-24 18:31] LABS: Troponin I < 0.03 ng/ml (0-0.04)
[2021-10-24 18:32] LABS: Alanine Aminotransferase 22 U/L (7-52); Albumin Level 3.3 gm/dl (3.4-5.0); Alkaline Phosphatase 112 U/L (34-104); Anion Gap 3 (3-11); Aspartate Aminotransferase 20 U/L (13-39); BUN Creatinine Ratio 9.2 (10-20); Bilirubin,Total 0.5 mg/dl (0.2-1.0); Blood Urea Nitrogen 7 mg/dl (6-23); Calcium 8.5 mg/dl (8.5-10.1); Carbon Dioxide 31 mmol/L (21-32); Chloride 106 mmol/L (98-107); Creatinine Clr Calc Pharmacy 215.7 ml/min; Est GFR (African American) 122.4 ml/min; Est GFR (Non-African American) 105.6 ml/min; Globulin 3.2 gm/dl (2.5-4.0); Glucose 93 mg/dl (70-99(Fasting)); Lipase 5 U/L (11-82); Sodium 140 mmol/L (136-145); Total Protein 6.5 gm/dl (6.0-8.3)
--- NOTE | 2021-10-24 19:17 | XRay Report ---
XR chest 1V portable CLINICAL HISTORY: Chest Pain. Positive Covid. Smoker COMPARISON STUDY: 08/29/2021 TECHNIQUE: 1 view of the chest FINDINGS: Single frontal view of the chest demonstrates the cardiomediastinal silhouette to be within normal li mits. There is a decreased inspiratory effort with elevation of the hemidiaphragms and crowding of th e bronchovascular markings at the lung bases and centrally. The lungs are clear of alveolar opacities . There is no evidence for pleural effusion. There is no evidence for vascular congestion. There is n o acute osseous pathology. IMPRESSION: There is a decreased inspiratory effort with otherwise no acute chest disease. ACT 112: Negative or not required by law. Electronically signed by: Sandip Chawla M.D. 10/24/2021 7:15 PM
[2021-10-24] MEDS ORDERED: FUROSEMIDE 40 MG/4 ML VIAL IV ONE (19:28)
[2021-10-24] MEDS ORDERED: ASPIRIN CHEW 324 MG PO STA (20:06)
[2021-10-24 20:30] LABS: Prothrombin Time 19.6 Seconds (9.0-12.0)
[2021-10-24] MEDS ORDERED: HYDROmorphone INJ 0.5 MG/0.5 ML SYR IV STA (22:14)
--- NOTE | 2021-10-24 23:36 | History and Physical Report ---
DATE OF ADMISSION: 10/24/2021. CHIEF COMPLAINT: Shortness of breath, chest pain, COVID positive. HISTORY OF PRESENT ILLNESS: This is a 51-year-old male with a past medical history significant for recurrent PE, on Coumadin, complicated bronchitis, COPD, history of recurrent UTI secondary to BPH, history of chronic indwelling Fontaine catheter, on chronic methenamine hippurate suppression, type 2 diabetes, history of traumatic subdural hematoma, history of subarachnoid hemorrhage in the setting of Coumadin coagulopathy, history of chronic diastolic CHF, CAD, hypertension, hyperlipidemia, chronic pain, history of drug-seeking behavior, history of ongoing tobacco abuse, multiple medical admissions, comes in because he has chronic chest pain, chronic shortness of breath, and found to be COVID positive. The patient is vaccinated, but did not receive booster. He said he did not receive booster because he was not able to go outside. He has ambulatory dysfunction and he is requesting if he can get COVID booster shot in the hospital. He says his grandkids got COVID and his daughter and his just a couple of days ago got COVID. He says his cough is a little worse and he is currently on 4 liters of oxygen, which is his baseline, but he says he was using more than usual and also his other problem is his Fontaine catheter came out about a week ago, it fell out and since then he stopped taking Lasix because he is pissing in the bed by himself and he says he gained a lot of weight because of that. He was recently seen by urology in the end of August and there is a question of whether he is a candidate for TURP. The patient wants his Fontaine catheter back in. He does not want to take any IV Lasix while he is not on Fontaine catheter. He complains of chronic shortness of breath, has chronic headache. No blurred visions, no runny nose. Appetite is okay. No abdominal pain, no diarrhea. Has swelling in the legs. Currently resting comfortably, hemodynamically stable, saturating 98% on 4 liters. ALLERGIES: CEFEPIME, DAPTOMYCIN, FENTANYL, LANOXIN, TYLENOL, IBUPROFEN, VALPROIC ACID. PAST MEDICAL HISTORY: As mentioned above. PAST SURGICAL HISTORY: Colonoscopy, EGD, EGD with endoscopic ultrasound, foot and toe surgery, repair of finger tendon sheath, repair of right hand joint. MEDICATIONS: The patient is on albuterol 2 puffs inhalation q.4 hours p.r.n., aspirin 81 mg p.o. a.m., atorvastatin 80 mg p.o. a.m., buprenorphine 8 mg sublingual t.i.d., cyclobenzaprine 10 mg p.o. b.i.d. p.r.n., Colace 100 mg p.o. b.i.d., duloxetine 60 mg p.o. daily, famotidine 20 mg p.o. daily, ferrous sulfate 325 mg p.o. a.m., finasteride 5 mg p.o. a.m., Flonase 2 sprays intranasally daily, folic acid 1 mg p.o. a.m., Lasix 40 mg p.o. b.i.d., gabapentin 800 mg p.o. t.i.d., glipizide 10 mg p.o. b.i.d., hydroxyzine 25 mg p.o. q.i.d. p.r.n., insulin subcutaneous t.i.d., DuoNeb q.6 hours p.r.n., isosorbide mononitrate 30 mg p.o. daily, Lactinex 1 tablet p.o. t.i.d., Lantus 15 units subcutaneous at bedtime, lorazepam 0.5 mg p.o. q.8 hours p.r.n., magnesium oxide 400 mg p.o. daily, methenamine hippurate 1 g p.o. daily, metoprolol succinate 75 mg p.o. b.i.d., nitroglycerin 0.4 mg sublingual p.r.n., nystatin 1 topical t.i.d. p.r.n., omeprazole 20 mg p.o. daily, Zofran 4 mg p.r.n., MiraLax 17 g p.o. daily, potassium chloride 20 mEq p.o. b.i.d., senna 8.6 mg p.o. daily p.r.n., Spiriva 1 puff inhalation a.m., spironolactone 25 mg p.o. a.m., Flomax 0.4 mg p.o. a.m., tramadol 50 mg p.o. q.6 hours p.r.n., warfarin 2.5 mg p.o. as directed. FAMILY HISTORY: Significant for breast cancer in sister; father had aneurysm; mother has back problems; maternal grandmother had heart disorder, maternal grandfather had heart disorder; paternal grandfather had COPD. SOCIAL HISTORY: Lives with his family. Smoked 2 packs a day for 32 years, currently smoking 1 pack a day. History of DUIs, currently not drinking alcohol. . History of opioid dependence. REVIEW OF SYSTEMS: As per HPI. Rest of review of systems is negative. PHYSICAL EXAMINATION: GENERAL: The patient is morbidly-morbidly obese, not in acute distress. VITAL SIGNS: Temperature 36.9, pulse 72, respiratory rate 17, blood pressure 165/83, oxygen 98% on 4 liters. HEENT: Pupils equal, round and reactive to light. Oral mucosa moist. NECK: No JVD, no neck masses. CARDIOVASCULAR: S1 and S2 heard. Regular rate and rhythm. No murmur, no gallop. RESPIRATORY: Normal AP diameter. No accessory muscle use. Mild bibasilar crackles. Mild rhonchi. No wheezing. ABDOMEN: Soft, bowel sounds present, nontender, no distention. CENTRAL NERVOUS SYSTEM: Cranial nerves II through XII are grossly intact, nonfocal. EXTREMITIES: Bilateral lower extremity gross edema seen. No erythema seen. LABORATORY DATA: WBC 11.8, hemoglobin 11.9, hematocrit 39.2, platelets 278. PT 19.6, INR 2. Sodium 140, potassium 4, chloride 106, bicarbonate 31, BUN 7, creatinine 0.76, serum glucose 93, calcium 8.5, total bilirubin 0.8, AST 20, ALT 22, alkaline phosphatase 112. Troponin I less than 0.03. BNP 83. SARS-CoV-2 RNA positive. IMAGING DATA: Chest x-ray: Decreased inspiratory effort. No acute disease in the chest. ASSESSMENT AND PLAN: This is a 51-year-old male who presents with volume overload, congestive heart failure and COVID positive. 1. Volume overload, acute on chronic diastolic congestive heart failure: The patient stopped taking his Lasix after his Fontaine came out a week ago. Currently, he also is difficult to place a Fontaine catheter and the patient does not want to take IV Lasix until his Fontaine is placed. His oxygen saturation seems to be at baseline, he is on 4 liters, 98% saturating. We will continue his home medications for now with 40 of p.o. Lasix, metoprolol succinate 75 mg p.o. b.i.d., isosorbide mononitrate. Consult cardiology in the a.m. Closely monitor in telemetry floor. 2. COVID positive: The patient is COVID vaccinated, but not boosted. Does not know how long he has been sick, but states that his whole family has been sick for some time now, his was diagnosed a couple of days ago before his daughter and before that the grandkids had COVID. Currently, respiratory status is at baseline. We will monitor. COVID precautions. Follow CRP levels. 3. Chest pain: He has chronic chest pain. Troponin is negative. 4. Benign prostatic hyperplasia and history of urinary retention, status post Fontaine: Fontaine came out 1 week ago. Difficult to place Fontaine catheter. Consult urology in a.m. Continue his Flomax. 5. Chronic urinary tract infections: Continue his methenamine hippurate. 6. History of hypertension: Continue metoprolol succinate and isosorbide. We will monitor blood pressure and also diuretics. 7. History of chronic obstructive pulmonary disease: Continue his Spiriva and home inhalers and nebulizers p.r.n. 8. History of diabetes: Continue his home Lantus, place on insulin sliding scale. Follow the blood sugars. Hold glipizide. 9. Chronic pain: Continue his home pain medications. 10. Depression: Continue his duloxetine. 11. Hyperlipidemia: Continue his statin. 12. Morbid obesity: Needs counseling. 13. History of recurrent pulmonary embolism and deep venous thrombosis: On Coumadin. INR 2. Follow his PT/INR. 14. Deep venous thrombosis prophylaxis: On Coumadin. DISPOSITION: Closely monitor in tele floor. Level 1 full code. Expect to discharge home and follow up with family doctor. PT/OT prior to discharge. Social service to help with discharge planning. Addendum: Was able to place fontaine. Started on iv lasix 40mg bid. Job ID: [id number] [facility]
[2021-10-24] MEDS ORDERED: POLYETHYLENE (MIRALAX) 17 GM PACK PO PRN (23:53)
[2021-10-24] MEDS ORDERED: hydrOXYzine HCl 25 MG TAB PO PRN (23:53)
[2021-10-24] MEDS ORDERED: ACETAMINOPHEN 325 MG TAB PO PRN (23:53)
[2021-10-24] MEDS ORDERED: NITROGLYCERIN SL 0.4 MG/TAB TAB SL PRN ×2 (23:53)
[2021-10-24] MEDS ORDERED: ONDANSETRON INJ 2 MG/ML 2 ML VIAL IV PRN (23:53)
[2021-10-24] MEDS ORDERED: ALBUT/IPRATROP 3MG/0.5MG NEB 3 ML VIAL INH PRN (23:53)
[2021-10-24] MEDS ORDERED: ALBUTEROL HFA 8 GM INHALER INH PRN (23:53)
[2021-10-25] MEDS ORDERED: ONDANSETRON 4 MG OD TAB PO PRN (01:04)
[2021-10-25] MEDS: FUROSEMIDE 40 MG/4 ML VIAL IV SCH ×3 (01:08→16:23)
[2021-10-25 01:33] LABS: Appearance Urine Clear (Clear); Bacteria Urine Automated 2+ (Negative); Bilirubin Urine Negative (Negative); Blood Urine 2+ (Negative); Color Urine Yellow; Glucose Urine UA Negative (Negative); Ketones Urine Negative (Negative); Leukocyte Esterase Urine Trace (Negative); Nitrite Urine Negative (Negative); Protein Urine Negative (Negative); Specific Gravity Urine 1.014 (1.000-1.030); Urobilinogen Urine Negative (Negative)
[2021-10-25] MEDS: INSULIN GLARGINE SOLOSTAR 100 UNITS/ML 3 ML PEN SC SCH ×2 (02:03→21:57)
[2021-10-25] MEDS: NYSTATIN OINT 15 GM TUBE EXT SCH ×3 (02:03→23:19)
[2021-10-25] MEDS: PANTOprazole 40 MG TAB PO SCH (05:54)
[2021-10-25 06:19] LABS: Basophils # (auto) 0.03 K/uL (0-0.2); Basophils % (auto) 0.4 %; Eosinophils # (auto) 0.37 K/uL (0-0.5); Eosinophils % (auto) 4.4 %; Hematocrit (blood only) 38.6 % (42-52); Hemoglobin 11.7 g/dL (14.0-18.0); Immature Granulocytes # (auto) 0.03 K/uL (0.00-0.02); Immature Granulocytes % (auto) 0.4 %; Lymphocytes % (auto) 26.4 %; Mean Corpuscular Hemoglobin 25.2 pg (25-34); Mean Corpuscular Hgb Conc 30.3 g/dL (32-36); Mean Platelet Volume 9.9 fL (7.4-10.4); Monocytes # (auto) 0.89 K/uL (0.11-0.59); Monocytes % (auto) 10.7 %; Neutrophils # (auto) 4.81 K/uL (1.4-6.5); Neutrophils % (auto) 57.7 %; Platelet Count 262 K/uL (130-400); RDW Coefficient of Variation 18.6 % (11.5-14.5); Red Blood Count 4.65 M/uL (4.7-6.1); White Blood Count 8.33 K/uL (4.8-10.8)
[2021-10-25 06:47] LABS: BUN Creatinine Ratio 8.6 (10-20); C Reactive Protein 2.99 mg/dl (0-0.5); Calcium 7.9 mg/dl (8.5-10.1); Creatinine Clr Calc Pharmacy 193.8 ml/min; Est GFR (African American) 119.3 ml/min; Est GFR (Non-African American) 102.9 ml/min; Magnesium 1.7 mg/dl (1.7-2.4); Potassium 3.9 mmol/L (3.5-5.1)
[2021-10-25 07:21] LABS: INR 1.8 (0.9-1.1); Prothrombin Time 17.1 Seconds (9.0-12.0)
[2021-10-25] MEDS: INSULIN ASPART PER UNIT SC SCH ×4 (08:30→21:56)
[2021-10-25] MEDS: ADVANCED PROBIOTIC 1250 MG CAPSULE PO SCH ×3 (08:43→22:28)
[2021-10-25] MEDS: POTASSIUM CHLORIDE CRTAB 20 MEQ TABCR PO SCH ×2 (08:43→22:28)
[2021-10-25] MEDS: DULoxetine HCL 60 MG CAP PO SCH (08:43)
[2021-10-25] MEDS: traMADol HCL 50 MG TABLET PO PRN ×3 (08:43→22:25)
[2021-10-25] MEDS: FAMOTIDINE 20 MG TAB PO SCH (08:44)
[2021-10-25] MEDS: DOCUSATE SODIUM 100 MG CAP PO SCH ×2 (08:44→22:27)
[2021-10-25] MEDS: MAGNESIUM OXIDE 400 MG TAB PO SCH (08:44)
[2021-10-25] MEDS: ASPIRIN 81 MG ECTAB PO SCH (08:44)
[2021-10-25] MEDS: LORazepam 0.5 MG TAB PO PRN ×2 (08:44→22:25)
[2021-10-25] MEDS: buprenorphine HCL 8 MG SUBL SL SCH ×3 (08:44→22:25)
[2021-10-25] MEDS: GABAPENTIN 800 MG TAB PO SCH ×3 (08:45→22:26)
[2021-10-25] MEDS: ISOSORBIDE MONO EXTENDED REL 30 MG TABCR PO SCH (08:45)
[2021-10-25] MEDS: METOPROLOL SUCC 25MG EXT REL TAB PO SCH ×2 (08:45→22:27)
[2021-10-25] MEDS: TAMSULOSIN HCL 0.4 MG CAP PO SCH (08:46)
[2021-10-25] MEDS: FINASTERIDE 5 MG TAB PO SCH (08:46)
[2021-10-25] MEDS: SPIRONOLACTONE 25 MG TAB PO SCH (08:46)
[2021-10-25] MEDS: FERROUS SULFATE 325 MG TAB PO SCH (08:46)
[2021-10-25] MEDS: METHENAMINE HIPPURATE 1 GM TAB PO SCH (08:46)
[2021-10-25] MEDS: FOLIC ACID 1 MG TAB PO SCH (08:46)
[2021-10-25] MEDS: FLUTICASONE PROPIONATE NA SPR 16 GM BTL SCH (08:47)
[2021-10-25] MEDS: UMECLIDINIUM BROMIDE 62.5MCG/BLISTER 7 PUFFS/INHALER INH SCH (08:48)
[2021-10-25] MEDS: POLYETHYLENE (MIRALAX) 17 GM PACK PO SCH (08:49)
[2021-10-25 08:54] LABS: Estimated Average Glucose 148 mg/dl; Hemoglobin A1C 6.8 % (4.5-5.6)
[2021-10-25] MEDS ORDERED: FUROSEMIDE 40 MG TAB PO SCH (09:00)
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
[2021-10-25] MEDS: ATORVASTATIN 40 MG TAB PO SCH (13:22)
[2021-10-25] MEDS: NICOTINE 21 MG/24 HR TDSY TD SCH (13:23)
--- NOTE | 2021-10-25 14:59 | Hospitalist Progress Note ---
Date of Service October 25, 2021 Assessment & Plan (1) Acute right-sided congestive heart failure: Plan: Has not been taking his Lasix for the last 1 week or so Presented with shortness of breath but has not been require any extra oxygen to maintain saturation Likely has acute right-sided congestive heart failure with fluid overload Chest x-ray did not show any overt pulmonary edema and the BNP was within normal range Has been getting Lasix intravenously and making out a lot of urine He is feeling better already (2) Fluid overload: Plan: As above (3) COVID-19: Plan: Noted to be COVID-19 virus positive Has had 2 doses of vaccine All of the family members have COVID-19 virus infection Clinically asymptomatic and has not been require any extra oxygen to maintain saturation Does not qualify for any intervention for COVID-19 virus infection (4) Chronic respiratory failure: Plan: History of chronic respiratory failure secondary to COPD Has been on home oxygen with 4 L to maintain saturation Still requiring 4 L in the hospital (5) COPD (chronic obstructive pulmonary disease): Plan: No signs and or symptoms of exacerbation (6) Pickwickian syndrome: (7) BPH (benign prostatic hyperplasia): Plan: History of prostrate hypertrophy and has a indwelling Lloyd catheter History of recurrent catheter associated UTI Catheter was out for about 1 week and since then he has not been taking his Lasix Successfully introduced catheter and he does not require any urology consult as of today We will continue intravenous Lasix and give catheter on discharge (8) Seizure-like activity: Plan: Continue current medications (9) History of pulmonary embolism: Plan: Has been on Coumadin INR is 1.8-we will continue (10) 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: Plan: Continue insulin SSI Chronic pain syndrome Has been on Suboxone We will continue that Has been taking Ultram 50 mg every 6 hourly-PDMP is not showing any work from prescription since July of last year Other significant medical conditions remain stable DVT prophylaxis On Coumadin CODE STATUS Full Admission and Anticipated Discharge Date Admission Date: October 24, 2021 Subjective 10/25/2021 The patient was seen and examined in telemetry unit He complains to be bloated but denies any increasing shortness of breath and her cough Most of his family members have Covid and he is not sure when did he get it but is not having any symptoms from it The catheter was put in and he has been diuresing a lot Review of Systems Review of Systems: All systems reviewed and are unremarkable except as noted below Neurologic: Generalized weakness Physical Exam Physical Exam: Lying in bed comfortably Constitutional: well developed, well nourished and + morbidly obese; not ill appearing Eyes: PERRL, conjunctivae normal, anicteric sclerae ENMT: external ear and nose normal, oropharynx normal Neck: trachea midline, no thyromegaly Respiratory: no respiratory distress Auscultation: + diminished lung shankar nds; no crackles Cardiovascular: Rate/Rhythm: regular rate and regular rhythm; not tachycardic Heart Sounds: normal S1 and normal S2; no murmur Extremities: + edema (Trace to 1+ edema bilaterally with chronic skin changes) Gastrointestinal (Abdomen): Inspection/Auscultation: + abdomen distended and normal bowel sounds Percussion/Palpation: abdomen soft; abdomen nontender Musculoskeletal: No acute arthritis in any joint Neurologic: Alert, 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 Results & Data Results & Data ([facility]) Vital Signs (Past 12 Hours) Vital Signs Temp Pulse Pulse Resp BP Pulse Ox 10/25/21 12:09 36.8 C 84 18 125/63 96 10/25/21 08:00 68 10/25/21 07:37 36.7 C 87 19 126/81 98 10/25/21 04:08 71 21 90 Laboratory Results Short CBC 10/24/21 10/25/21 Range/Units 17:42 05:41 WBC 11.89 H 8.33 (4.8-10.8) K/uL Hgb 11.9 L 11.7 L (14.0-18.0) g/dL Hct 39.2 L 38.6 L (42-52) % Plt Count 278 262 (130-400) K/uL BMP 10/24/21 10/25/21 17:42 05:41 Sodium 140 140 Potassium 4.0 3.9 Chloride 106 104 Carbon Dioxide 31 32 BUN 7 7 Creatinine 0.76 0.81 Glucose 93 109 H Calcium 8.5 7.9 L Cardiac Enzymes 10/24/21 Range/Units 17:42 Troponin I < 0.03 (0-0.04) ng/ml Liver Function 10/24/21 Range/Units 17:42 Total Bilirubin 0.5 (0.2-1.0) mg/dl AST 20 (13-39) U/L ALT 22 (7-52) U/L Alkaline Phosphatase 112 H (34-104) U/L Albumin 3.3 L (3.4-5.0) gm/dl Urine 10/25/21 Range/Units 01:15 Urine Color Yellow Urine Appearance Clear (Clear) Urine pH 6.0 (4.5-7.5) Ur Specific [place] 1.014 (1.000-1.030) Urine Protein Negative (Negative) Urine Glucose (UA) Negative (Negative) Medications Administered Current Inpatient Medications Acetaminophen (Acetaminophen 325 Mg Tab) 650 mg PO Q4H PRN PRN Reason: Pain or Fever Stop: 11/23/21 23:52 Albuterol (Albuterol Hfa 8 Gm Inhaler) 2 puffs INH Q4 PRN PRN Reason: Dyspnea Stop: 11/23/21 23:52 Albuterol (Albut/Ipratrop 3mg/0.5mg Neb 3 Ml Vial) 3 ml INH Q6H PRN; Protocol PRN Reason: Shortness Of Breath Or Wheezing Stop: 11/23/21 23:52 Aspirin (Aspirin 81 Mg Ectab) 81 mg PO QAM [facility] Stop: 11/24/21 08:59 Last Admin: 10/25/21 08:44 Dose: 81 mg Documented by: Atorvastatin Calcium (Atorvastatin 40 Mg Tab) 80 mg PO DAILY@1200 [facility] Stop: 11/24/21 11:59 Last Admin: 10/25/21 13:22 Dose: 80 mg Documented by: Buprenorphine HCl (Buprenorphine Hcl 8 Mg Subl) 8 mg SL TID [facility] Stop: 11/24/21 08:59 Last Admin: 10/25/21 13:22 Dose: 8 mg Documented by: Cyclobenzaprine HCl (Cyclobenzaprine Hcl 10 Mg Tab) 10 mg PO BID PRN PRN Reason: Muscle Spasm Stop: 11/23/21 23:52 Docusate Sodium (Docusate Sodium 100 Mg Cap) 100 mg PO BID [facility] Stop: 11/24/21 08:59 Last Admin: 10/25/21 08:44 Dose: 100 mg Documented by: Duloxetine HCl (Duloxetine Hcl 60 Mg Cap) 60 mg PO DAILY [facility] Stop: 11/24/21 08:59 Last Admin: 10/25/21 08:43 Dose: 60 mg Documented by: Famotidine (Famotidine 20 Mg Tab) 20 mg PO DAILY [facility] Stop: 11/24/21 08:59 Last Admin: 10/25/21 08:44 Dose: 20 mg Documented by: Ferrous Sulfate (Ferrous Sulfate 325 Mg Tab) 325 mg PO QAM [facility] Stop: 11/24/21 08:59 Last Admin: 10/25/21 08:46 Dose: 325 mg Documented by: Finasteride (Finasteride 5 Mg Tab) 5 mg PO QAM [facility] Stop: 11/24/21 08:59 Last Admin: 10/25/21 08:46 Dose: 5 mg Documented by: Fluticasone Propionate (Fluticasone Propionate Na Spr 16 Gm Btl) 2 sprays NA DAILY [facility] Stop: 11/24/21 08:59 Last Admin: 10/25/21 08:47 Dose: 2 sprays Documented by: Folic Acid (Folic Acid 1 Mg Tab) 1 mg PO QAM [facility] Stop: 11/24/21 08:59 Last Admin: 10/25/21 08:46 Dose: 1 mg Documented by: Furosemide (Furosemide 40 Mg/4 Ml Vial) 40 mg IV BID17 [facility] Stop: 11/24/21 00:44 Last Admin: 10/25/21 08:47 Dose: 40 mg Documented by: Gabapentin (Gabapentin 800 Mg Tab) 800 mg PO TID [facility] Stop: 11/24/21 08:59 Last Admin: 10/25/21 13:22 Dose: 800 mg Documented by: Hydroxyzine HCl (Hydroxyzine Hcl 25 Mg Tab) 25 mg PO QID PRN PRN Reason: Anxiety Stop: 11/23/21 23:52 Insulin Aspart (Insulin Aspart Per Unit) 0 units SC ACHS [facility] Stop: 11/24/21 07:29 Last Admin: 10/25/21 13:00 Dose: 9 units Documented by: Insulin Glargine (Insulin Glargine Solostar 100 Units/Ml 3 Ml Pen) 50 units SC HS [facility] Stop: 11/24/21 01:59 Last Admin: 10/25/21 02:03 Dose: 50 units Documented by: Isosorbide Mononitrate (Isosorbide [place] Extended Rel 30 Mg Tabcr) 30 mg PO DAILY [facility] Stop: 11/24/21 08:59 Last Admin: 10/25/21 08:45 Dose: 30 mg Documented by: Lactobacillus Acidophilus (Advanced Probiotic 1250 Mg Capsule) 1 cap PO TID [facility] Stop: 11/24/21 08:59 Last Admin: 10/25/21 13:22 Dose: 1 cap Documented by: Lorazepam (Lorazepam 0.5 Mg Tab) 0.5 mg PO Q8 PRN PRN Reason: Anxiety Stop: 11/23/21 23:52 Last Admin: 10/25/21 08:44 Dose: 0.5 mg Documented by: Magnesium Oxide (Magnesium Oxide 400 Mg Tab) 400 mg PO DAILY [facility] Stop: 11/24/21 08:59 Last Admin: 10/25/21 08:44 Dose: 400 mg Documented by: Methenamine Hippurate (Methenamine Hippurate 1 Gm Tab) 1 gm PO DAILY [facility] Stop: 11/24/21 08:59 Last Admin: 10/25/21 08:46 Dose: 1 gm Documented by: Metoprolol Succinate (Metoprolol Succ 25mg Ext Rel Tab) 75 mg PO BID [facility] Stop: 11/24/21 08:59 Last Admin: 10/25/21 08:45 Dose: 75 mg Documented by: Miscellaneous (Urea [Ureacin-20] 20 % - Order Awaiting Action) 1 ea N/A QS [facility] Stop: 11/24/21 07:59 Last Admin: 10/25/21 13:26 Dose: Not Given Documented by: Miscellaneous (Remove Nicoderm Patch) 1 ea N/A DAILY@0859 [facility] Stop: 11/25/21 08:58 Nicotine (Nicotine 21 Mg/24 Hr Tdsy) 21 mg TD QAM [facility] Stop: 11/24/21 12:59 Last Admin: 10/25/21 13:23 Dose: 21 mg Documented by: Nitroglycerin (Nitroglycerin Sl 0.4 Mg/Tab Tab) 0.4 mg SL UD PRN PRN Reason: Chest Pain Stop: 11/23/21 23:52 Nystatin (Nystatin Powder 15gm Btl) 1 appln EXT TID PRN PRN Reason: Skin Irritation Stop: 11/23/21 23:52 Nystatin (Nystatin Oint 15 Gm Tube) 1 appln EXT BID [facility] Stop: 11/24/21 00:59 Last Admin: 10/25/21 08:49 Dose: 1 appln Documented by: Ondansetron HCl (Ondansetron Inj 2 Mg/Ml 2 Ml Vial) 4 mg IV Q6H PRN PRN Reason: Nausea Stop: 11/23/21 23:52 Ondansetron HCl (Ondansetron 4 Mg Od Tab) 4 mg PO Q8 PRN PRN Reason: Nausea And Vomiting Stop: 11/24/21 01:03 Pantoprazole Sodium (Pantoprazole 40 Mg Tab) 40 mg PO DAILYBB [facility] Stop: 11/24/21 06:29 Last Admin: 10/25/21 05:54 Dose: 40 mg Documented by: Polyethylene Glycol (Polyethylene (Miralax) 17 Gm Pack) [facility] Stop: 11/24/21 08:59 Last Admin: 10/25/21 08:49 Dose: Not Given Documented by: Potassium Chloride (Potassium Chloride Crtab 20 Meq Tabcr) 20 meq PO BID [facility] Stop: 11/24/21 08:59 Last Admin: 10/25/21 08:43 Dose: 20 meq Documented by: Sennosides (Senna 8.6 Mg Tab) 8.6 mg PO DAILY PRN PRN Reason: Constipation Stop: 11/23/21 23:52 Spironolactone (Spironolactone 25 Mg Tab) 25 mg PO [facility] Stop: 11/24/21 08:59 Last Admin: 10/25/21 08:46 Dose: 25 mg Documented by: Tamsulosin HCl (Tamsulosin Hcl 0.4 Mg Cap) 0.4 mg PO [facility] Stop: 11/24/21 08:59 Last Admin: 10/25/21 08:46 Dose: 0.4 mg Documented by: Tramadol HCl (Tramadol Hcl 50 Mg Tablet) 50 mg PO Q6 PRN PRN Reason: Pain Stop: 11/23/21 23:52 Last Admin: 10/25/21 08:43 Dose: 50 mg Documented by: Umeclidinium [place] (Umeclidinium [place] 62.5mcg/Blister 7 Puffs/Inhaler) 1 puffs INH [facility] Stop: 11/24/21 08:59 Last Admin: 10/25/21 08:48 Dose: 1 puffs Documented by: Warfarin Sodium (Warfarin Sod 5 Mg Tab) 5 mg PO DAILY@1600 [facility] Stop: 11/24/21 15:59 (1) Fluid overload Hypervolemia type: unspecified Qualified Code(s): E87.70 - Fluid overload, unspecified (2) COPD (chronic obstructive pulmonary disease) COPD type: COPD with acute exacerbation Qualified Code(s): J44.1 - Chronic obstructive pulmonary disease with (acute) exacerbation
[2021-10-25] MEDS ORDERED: WARFARIN SOD 5 MG TAB PO SCH (16:00)
[2021-10-25] MEDS: MELATONIN 3 MG TAB PO PRN (22:25)
[2021-10-26] MEDS: CYCLOBENZAPRINE HCL 10 MG TAB PO PRN ×2 (03:06→13:07)
[2021-10-26] MEDS: PANTOprazole 40 MG TAB PO SCH (05:34)
[2021-10-26 06:27] LABS: Basophils # (auto) 0.03 K/uL (0-0.2); Basophils % (auto) 0.3 %; Eosinophils # (auto) 0.43 K/uL (0-0.5); Eosinophils % (auto) 4.7 %; Hematocrit (blood only) 37.6 % (42-52); Hemoglobin 11.4 g/dL (14.0-18.0); Immature Granulocytes # (auto) 0.02 K/uL (0.00-0.02); Immature Granulocytes % (auto) 0.2 %; Lymphocytes # (auto) 2.54 K/uL (1.2-3.4); Lymphocytes % (auto) 27.9 %; Mean Corpuscular Hemoglobin 24.8 pg (25-34); Mean Corpuscular Hgb Conc 30.3 g/dL (32-36); Mean Corpuscular Volume 81.9 fL (80-100); Mean Platelet Volume 9.7 fL (7.4-10.4); Monocytes # (auto) 0.74 K/uL (0.11-0.59); Monocytes % (auto) 8.1 %; Neutrophils # (auto) 5.35 K/uL (1.4-6.5); Neutrophils % (auto) 58.8 %; Platelet Count 247 K/uL (130-400); RDW Coefficient of Variation 18.3 % (11.5-14.5); RDW Standard Deviation 54.8 fL (36.4-46.3); Red Blood Count 4.59 M/uL (4.7-6.1); White Blood Count 9.11 K/uL (4.8-10.8)
[2021-10-26 06:46] LABS: Albumin Globulin Ratio 0.9 (0.9-2); BUN Creatinine Ratio 14.3 (10-20); Bilirubin,Total 0.5 mg/dl (0.2-1.0); Calcium 8.2 mg/dl (8.5-10.1); Creatinine Clr Calc Pharmacy 167.3 ml/min; Est GFR (African American) 112.7 ml/min; Est GFR (Non-African American) 97.2 ml/min; Globulin 3.2 gm/dl (2.5-4.0); Magnesium 1.9 mg/dl (1.7-2.4); Potassium 4.2 mmol/L (3.5-5.1); Total Protein 6.2 gm/dl (6.0-8.3)
[2021-10-26 07:31] LABS: INR 1.5 (0.9-1.1); Prothrombin Time 15.1 Seconds (9.0-12.0)
[2021-10-26] MEDS: INSULIN ASPART PER UNIT SC SCH ×4 (08:00→21:04)
[2021-10-26] MEDS: ADVANCED PROBIOTIC 1250 MG CAPSULE PO SCH ×3 (08:02→22:13)
[2021-10-26] MEDS: traMADol HCL 50 MG TABLET PO PRN ×3 (08:02→22:11)
[2021-10-26] MEDS: LORazepam 0.5 MG TAB PO PRN ×2 (08:02→22:10)
[2021-10-26] MEDS: buprenorphine HCL 8 MG SUBL SL SCH ×3 (08:02→22:11)
[2021-10-26] MEDS: ISOSORBIDE MONO EXTENDED REL 30 MG TABCR PO SCH (08:03)
[2021-10-26] MEDS: METOPROLOL SUCC 25MG EXT REL TAB PO SCH ×2 (08:03→22:14)
[2021-10-26] MEDS: POTASSIUM CHLORIDE CRTAB 20 MEQ TABCR PO SCH ×2 (08:03→22:13)
[2021-10-26] MEDS: DOCUSATE SODIUM 100 MG CAP PO SCH ×2 (08:03→22:12)
[2021-10-26] MEDS: DULoxetine HCL 60 MG CAP PO SCH (08:03)
[2021-10-26] MEDS: METHENAMINE HIPPURATE 1 GM TAB PO SCH (08:03)
[2021-10-26] MEDS: FERROUS SULFATE 325 MG TAB PO SCH (08:04)
[2021-10-26] MEDS: FUROSEMIDE 40 MG/4 ML VIAL IV SCH ×2 (08:04→16:33)
[2021-10-26] MEDS: GABAPENTIN 800 MG TAB PO SCH ×3 (08:04→22:12)
[2021-10-26] MEDS: MAGNESIUM OXIDE 400 MG TAB PO SCH (08:04)
[2021-10-26] MEDS: FINASTERIDE 5 MG TAB PO SCH (08:05)
[2021-10-26] MEDS: POLYETHYLENE (MIRALAX) 17 GM PACK PO SCH (08:05)
[2021-10-26] MEDS: ASPIRIN 81 MG ECTAB PO SCH (08:05)
[2021-10-26] MEDS: TAMSULOSIN HCL 0.4 MG CAP PO SCH (08:05)
[2021-10-26] MEDS: NICOTINE 21 MG/24 HR TDSY TD SCH (08:05)
[2021-10-26] MEDS: NYSTATIN OINT 15 GM TUBE EXT SCH ×2 (08:05→22:14)
[2021-10-26] MEDS: UMECLIDINIUM BROMIDE 62.5MCG/BLISTER 7 PUFFS/INHALER INH SCH (08:06)
[2021-10-26] MEDS: SPIRONOLACTONE 25 MG TAB PO SCH (08:06)
[2021-10-26] MEDS: FOLIC ACID 1 MG TAB PO SCH (08:07)
[2021-10-26] MEDS: FAMOTIDINE 20 MG TAB PO SCH (08:07)
[2021-10-26] MEDS: FLUTICASONE PROPIONATE NA SPR 16 GM BTL SCH (08:07)
[2021-10-26] MEDS: BENZONATATE 100 MG CAPSULE PO PRN (08:10)
[2021-10-26] MEDS: guaiFENesin 600 MG TABCR PO SCH ×2 (08:14→22:11)
[2021-10-26] MEDS: ATORVASTATIN 40 MG TAB PO SCH (13:07)
--- NOTE | 2021-10-26 14:28 | Hospitalist Progress Note ---
Date of Service October 26, 2021 Assessment & Plan (1) Acute right-sided congestive heart failure: Plan: Has not been taking his Lasix for the last 1 week or so Presented with shortness of breath but has not been require any extra oxygen to maintain saturation Likely has acute right-sided congestive heart failure with fluid overload Chest x-ray did not show any overt pulmonary edema and the BNP was within normal range Has been getting Lasix intravenously and making out a lot of urine He is feeling better already Appreciate cardiology input and recommendation to continue current dose of furosemide Clinically much better and plan to discharge home in a day or 2 Generally weak We will get PT and OT evaluation Possible discharge on Wednesday or Wednesday (2) Fluid overload: Plan: As above (3) COVID-19: Plan: Noted to be COVID-19 virus positive Has had 2 doses of vaccine All of the family members have COVID-19 virus infection Clinically asymptomatic and has not been require any extra oxygen to maintain saturation Does not qualify for any intervention for COVID-19 virus infection No symptoms secondary to COVID-19 virus infection (4) Chronic respiratory failure: Plan: History of chronic respiratory failure secondary to COPD Has been on home oxygen with 4 L to maintain saturation Still requiring 4 L in the hospital-remains stable (5) COPD (chronic obstructive pulmonary disease): Plan: No signs and or symptoms of exacerbation Has minimal wheezing anteriorly-in part due to transmitted sounds from the trachea We will give [id number] inhalation of albuterol (6) Pickwickian syndrome: (7) BPH (benign prostatic hyperplasia): Plan: History of prostrate hypertrophy and has a indwelling Lloyd catheter History of recurrent catheter associated UTI Catheter was out for about 1 week and since then he has not been taking his Lasix Successfully introduced catheter and he does not require any urology consult as of today We will continue intravenous Lasix and give catheter on discharge (8) Seizure-like activity: Plan: Continue current medications (9) History of pulmonary embolism: Plan: Has been on Coumadin INR is 1.8-we will continue (10) 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: Plan: Continue insulin SSI Chronic pain syndrome Has been on Suboxone We will continue that Has been taking Ultram 50 mg every 6 hourly-PDMP is not showing any work from prescription since July of last year Other significant medical conditions remain stable DVT prophylaxis On Coumadin CODE STATUS Full Admission and Anticipated Discharge Date Admission Date: October 24, 2021 Subjective 10/25/2021 The patient was seen and examined in telemetry unit He complains to be bloated but denies any increasing shortness of breath and her cough Most of his family members have Covid and he is not sure when did he get it but is not having any symptoms from it The catheter was put in and he has been diuresing a lot 10/26/2021 The patient was seen and examined in telemetry unit and in the COVID room He feels crappy Has been diuresing enough and edema of the legs have improved a lot No more respiratory symptoms and remains generally weak Review of Systems Review of Systems: All systems reviewed and are unremarkable except as noted below Neurologic: Generalized weakness Physical Exam Physical Exam: Lying in bed comfortably Constitutional: well developed, well nourished and + morbidly obese; not ill appearing Eyes: PERRL, conjunctivae normal, anicteric sclerae ENMT: external ear and nose normal, oropharynx normal Neck: trachea midline, no thyromegaly Respiratory: no respiratory distress Auscultation: + diminished lung sounds; no crackles Cardiovascular: Rate/Rhythm: regular rate and regular rhythm; not tachycardic Heart Sounds: normal S1 and normal S2; no murmur Extremities: + edema (Trace to 1+ edema bilaterally with chronic skin changes) Gastrointestinal (Abdomen): Inspection/Auscultation: + abdomen distended and normal bowel sounds Percussion/Palpation: abdomen soft; abdomen nontender Musculoskeletal: No acute arthritis in any joint Neurologic: Alert, 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 Genitourinary: Has catheter in place Results & Data Results & Data ([facility]) Vital Signs (Past 12 Hours) Vital Signs Temp Pulse Pulse Resp BP Pulse Ox 10/26/21 11:19 36.6 C 72 20 92/56 L 97 10/26/21 08:00 68 10/26/21 07:31 36.5 C 72 22 111/71 98 Laboratory Results Short CBC 10/26/21 Range/Units 05:44 WBC 9.11 (4.8-10.8) K/uL Hgb 11.4 L (14.0-18.0) g/dL Hct 37.6 L (42-52) % Plt Count 247 (130-400) K/uL BMP 10/26/21 05:44 Sodium 139 Potassium 4.2 Chloride 100 Carbon Dioxide 36 H BUN 13 Creatinine 0.91 Glucose 113 H Calcium 8.2 L Liver Function 10/26/21 Range/Units 05:44 Total Bilirubin 0.5 (0.2-1.0) mg/dl AST 12 L (13-39) U/L ALT 16 (7-52) U/L Alkaline Phosphatase 102 (34-104) U/L Albumin 3.0 L (3.4-5.0) gm/dl Medications Administered Current Inpatient Medications Acetaminophen (Acetaminophen 325 Mg Tab) 650 mg PO Q4H PRN PRN Reason: Pain or Fever Stop: 11/23/21 23:52 Albuterol (Albut/Ipratrop 3mg/0.5mg Neb 3 Ml Vial) 3 ml INH Q6H PRN; Protocol PRN Reason: Shortness Of Breath Or Wheezing Stop: 11/23/21 23:52 Albuterol (Albuterol Hfa 8 Gm Inhaler) 2 puffs INH Q4R [facility] Stop: 11/25/21 15:29 Aspirin (Aspirin 81 Mg Ectab) 81 mg PO QAM [facility] Stop: 11/24/21 08:59 Last Admin: 10/26/21 08:05 Dose: 81 mg Documented by: Atorvastatin Calcium (Atorvastatin 40 Mg Tab) 80 mg PO DAILY@1200 [facility] Stop: 11/24/21 11:59 Last Admin: 10/26/21 13:07 Dose: 80 mg Documented by: Benzonatate (Benzonatate 100 Mg Capsule) 100 mg PO TID PRN PRN Reason: Cough Stop: 11/25/21 03:45 Last Admin: 10/26/21 08:10 Dose: 100 mg Documented by: Buprenorphine HCl (Buprenorphine Hcl 8 Mg Subl) 8 mg SL TID [facility] Stop: 11/24/21 08:59 Last Admin: 10/26/21 13:07 Dose: 8 mg Documented by: Cyclobenzaprine HCl (Cyclobenzaprine Hcl 10 Mg Tab) 10 mg PO BID PRN PRN Reason: Muscle Spasm Stop: 11/23/21 23:52 Last Admin: 10/26/21 13:07 Dose: 10 mg Documented by: Docusate Sodium (Docusate Sodium 100 Mg Cap) 100 mg PO BID [facility] Stop: 11/24/21 08:59 Last Admin: 10/26/21 08:03 Dose: 100 mg Documented by: Duloxetine HCl (Duloxetine Hcl 60 Mg Cap) 60 mg PO DAILY [facility] Stop: 11/24/21 08:59 Last Admin: 10/26/21 08:03 Dose: 60 mg Documented by: Famotidine (Famotidine 20 Mg Tab) 20 mg PO DAILY [facility] Stop: 11/24/21 08:59 Last Admin: 10/26/21 08:07 Dose: 20 mg Documented by: Ferrous Sulfate (Ferrous Sulfate 325 Mg Tab) 325 mg PO QAM [facility] Stop: 11/24/21 08:59 Last Admin: 10/26/21 08:04 Dose: 325 mg Documented by: Finasteride (Finasteride 5 Mg Tab) 5 mg PO QAM [facility] Stop: 11/24/21 08:59 Last Admin: 10/26/21 08:05 Dose: 5 mg Documented by: Fluticasone Propionate (Fluticasone Propionate Na Spr 16 Gm Btl) 2 sprays NA DAILY [facility] Stop: 11/24/21 08:59 Last Admin: 10/26/21 08:07 Dose: 2 sprays Documented by: Folic Acid (Folic Acid 1 Mg Tab) 1 mg PO QAM [facility] Stop: 11/24/21 08:59 Last Admin: 10/26/21 08:07 Dose: 1 mg Documented by: Furosemide (Furosemide 40 Mg/4 Ml Vial) 40 mg IV BID17 [facility] Stop: 11/24/21 00:44 Last Admin: 10/26/21 08:04 Dose: 40 mg Documented by: Gabapentin (Gabapentin 800 Mg Tab) 800 mg PO TID [facility] Stop: 11/24/21 08:59 Last Admin: 10/26/21 13:07 Dose: 800 mg Documented by: Guaifenesin (Guaifenesin 600 Mg Tabcr) 600 mg PO Q12 [facility] Stop: 11/25/21 08:59 Last Admin: 10/26/21 08:14 Dose: 600 mg Documented by: Hydroxyzine HCl (Hydroxyzine Hcl 25 Mg Tab) 25 mg PO QID PRN PRN Reason: Anxiety Stop: 11/23/21 23:52 Insulin Aspart (Insulin Aspart Per Unit) 0 units SC ACHS [facility] Stop: 11/24/21 07:29 Last Admin: 10/26/21 13:00 Dose: 6 units Documented by: Insulin Glargine (Insulin Glargine Solostar 100 Units/Ml 3 Ml Pen) 50 units SC HS [facility] Stop: 11/24/21 01:59 Last Admin: 10/25/21 21:57 Dose: 50 units Documented by: Isosorbide Mononitrate (Isosorbide [place] Extended Rel 30 Mg Tabcr) 30 mg PO DAILY [facility] Stop: 11/24/21 08:59 Last Admin: 10/26/21 08:03 Dose: 30 mg Documented by: Lactobacillus Acidophilus (Advanced Probiotic 1250 Mg Capsule) 1 cap PO TID [facility] Stop: 11/24/21 08:59 Last Admin: 10/26/21 13:07 Dose: 1 cap Documented by: Lorazepam (Lorazepam 0.5 Mg Tab) 0.5 mg PO Q8 PRN PRN Reason: Anxiety Stop: 11/23/21 23:52 Last Admin: 10/26/21 08:02 Dose: 0.5 mg Documented by: Magnesium Oxide (Magnesium Oxide 400 Mg Tab) 400 mg PO DAILY [facility] Stop: 11/24/21 08:59 Last Admin: 10/26/21 08:04 Dose: 400 mg Documented by: Melatonin (Melatonin 3 Mg Tab) 9 mg PO HS PRN PRN Reason: Sleep Stop: 11/24/21 21:57 Last Admin: 10/25/21 22:25 Dose: 9 mg Documented by: Methenamine Hippurate (Methenamine Hipp[place] 1 Gm Tab) 1 gm PO DAILY [facility] Stop: 11/24/21 08:59 Last Admin: 10/26/21 08:03 Dose: 1 gm Documented by: Metoprolol Succinate (Metoprolol Succ 25mg Ext Rel Tab) 75 mg PO BID [facility] Stop: 11/24/21 08:59 Last Admin: 10/26/21 08:03 Dose: 75 mg Documented by: Miscellaneous (Urea [Ureacin-20] 20 % - Order Awaiting Action) 1 ea N/A QS [facility] Stop: 11/24/21 07:59 Last Admin: 10/26/21 08:01 Dose: Not Given Documented by: Miscellaneous (Remove Nicoderm Patch) 1 ea N/A DAILY@0859 [facility] Stop: 11/25/21 08:58 Last Admin: 10/26/21 08:07 Dose: 1 ea Documented by: Nicotine (Nicotine 21 Mg/24 Hr Tdsy) 21 mg TD QAM [facility] Stop: 11/24/21 12:59 Last Admin: 10/26/21 08:05 Dose: 21 mg Documented by: Nitroglycerin (Nitroglycerin Sl 0.4 Mg/Tab Tab) 0.4 mg SL UD PRN PRN Reason: Chest Pain Stop: 11/23/21 23:52 Nystatin (Nystatin Powder 15gm Btl) 1 appln EXT TID PRN PRN Reason: Skin Irritation Stop: 11/23/21 23:52 Nystatin (Nystatin Oint 15 Gm Tube) 1 appln EXT BID [facility] Stop: 11/24/21 00:59 Last Admin: 10/26/21 08:05 Dose: 1 appln Documented by: Ondansetron HCl (Ondansetron Inj 2 Mg/Ml 2 Ml Vial) 4 mg IV Q6H PRN PRN Reason: Nausea Stop: 11/23/21 23:52 Ondansetron HCl (Ondansetron 4 Mg Od Tab) 4 mg PO Q8 PRN PRN Reason: Nausea And Vomiting Stop: 11/24/21 01:03 Pantoprazole Sodium (Pantoprazole 40 Mg Tab) [facility]: 11/24/21 06:29 Last Admin: 10/26/21 05:34 Dose: 40 mg Documented by: Polyethylene Glycol (Polyethylene (Miralax) 17 Gm Pack) 17 gm PO [facility] Stop: 11/24/21 08:59 Last Admin: 10/26/21 08:05 Dose: Not Given Documented by: Potassium Chloride (Potassium Chloride Crtab 20 Meq Tabcr) 20 meq PO BID [facility] Stop: 11/24/21 08:59 Last Admin: 10/26/21 08:03 Dose: 20 meq Documented by: Sennosides (Senna 8.6 Mg Tab) 8.6 mg PO DAILY PRN PRN Reason: Constipation Stop: 11/23/21 23:52 Spironolactone (Spironolactone 25 Mg Tab) 25 mg PO [facility] Stop: 11/24/21 08:59 Last Admin: 10/26/21 08:06 Dose: 25 mg Documented by: Tamsulosin HCl (Tamsulosin Hcl 0.4 Mg Cap) [facility] Stop: 11/24/21 08:59 Last Admin: 10/26/21 08:05 Dose: 0.4 mg Documented by: Tramadol HCl (Tramadol Hcl 50 Mg Tablet) 50 mg PO Q6 PRN PRN Reason: Pain Stop: 11/23/21 23:52 Last Admin: 10/26/21 08:02 Dose: 50 mg Documented by: Umeclidinium [place] (Umeclidinium [place] 62.5mcg/Blister 7 Puffs/Inhaler) 1 puffs INH QAM [facility] Stop: 11/24/21 08:59 Last Admin: 10/26/21 08:06 Dose: 1 puffs Documented by: Warfarin Sodium (Warfarin Sod 7.5 Mg Tab) 7.5 mg PO DAILY@1600 [facility] Stop: 11/25/21 15:59 (1) Fluid overload Hypervolemia type: unspecified Qualified Code(s): E87.70 - Fluid overload, unspecified (2) COPD (chronic obstructive pulmonary disease) COPD type: COPD with acute exacerbation Qualified Code(s): J44.1 - Chronic obstructive pulmonary disease with (acute) exacerbation
[2021-10-26] MEDS: ALBUTEROL HFA 8 GM INHALER INH SCH ×2 (15:44→20:31)
[2021-10-26] MEDS: WARFARIN SOD 7.5 MG TAB PO SCH (16:34)
[2021-10-26] MEDS: INSULIN GLARGINE SOLOSTAR 100 UNITS/ML 3 ML PEN SC SCH (21:04)
[2021-10-26] MEDS: MELATONIN 3 MG TAB PO PRN (22:11)
[2021-10-27] MEDS: ALBUTEROL HFA 8 GM INHALER INH SCH ×3 (01:08→07:29)
[2021-10-27] MEDS: CYCLOBENZAPRINE HCL 10 MG TAB PO PRN ×2 (02:49→14:45)
[2021-10-27] MEDS: PANTOprazole 40 MG TAB PO SCH (06:01)
[2021-10-27] MEDS: FLUTICASONE PROPIONATE NA SPR 16 GM BTL SCH (07:55)
[2021-10-27] MEDS: POLYETHYLENE (MIRALAX) 17 GM PACK PO SCH (07:56)
[2021-10-27] MEDS: UMECLIDINIUM BROMIDE 62.5MCG/BLISTER 7 PUFFS/INHALER INH SCH (07:56)
[2021-10-27] MEDS: METOPROLOL SUCC 25MG EXT REL TAB PO SCH ×2 (07:57→22:33)
[2021-10-27] MEDS: FAMOTIDINE 20 MG TAB PO SCH (07:57)
[2021-10-27] MEDS: DOCUSATE SODIUM 100 MG CAP PO SCH ×2 (07:57→22:34)
[2021-10-27] MEDS: METHENAMINE HIPPURATE 1 GM TAB PO SCH (07:57)
[2021-10-27] MEDS: FOLIC ACID 1 MG TAB PO SCH (07:58)
[2021-10-27] MEDS: FERROUS SULFATE 325 MG TAB PO SCH (07:58)
[2021-10-27] MEDS: GABAPENTIN 800 MG TAB PO SCH ×3 (07:58→22:33)
[2021-10-27] MEDS: ADVANCED PROBIOTIC 1250 MG CAPSULE PO SCH ×3 (07:58→22:34)
[2021-10-27] MEDS: MAGNESIUM OXIDE 400 MG TAB PO SCH (07:59)
[2021-10-27] MEDS: guaiFENesin 600 MG TABCR PO SCH ×2 (07:59→22:34)
[2021-10-27] MEDS: ASPIRIN 81 MG ECTAB PO SCH (07:59)
[2021-10-27] MEDS: FINASTERIDE 5 MG TAB PO SCH (08:00)
[2021-10-27] MEDS: ISOSORBIDE MONO EXTENDED REL 30 MG TABCR PO SCH (08:00)
[2021-10-27] MEDS: SPIRONOLACTONE 25 MG TAB PO SCH (08:00)
[2021-10-27] MEDS: BENZONATATE 100 MG CAPSULE PO PRN (08:01)
[2021-10-27] MEDS: DULoxetine HCL 60 MG CAP PO SCH (08:01)
[2021-10-27] MEDS: FUROSEMIDE 40 MG/4 ML VIAL IV SCH ×2 (08:01→17:43)
[2021-10-27] MEDS: NICOTINE 21 MG/24 HR TDSY TD SCH (08:02)
[2021-10-27] MEDS: NYSTATIN POWDER 15GM BTL EXT PRN (08:03)
[2021-10-27] MEDS: POTASSIUM CHLORIDE CRTAB 20 MEQ TABCR PO SCH ×2 (08:03→22:33)
[2021-10-27] MEDS: NYSTATIN OINT 15 GM TUBE EXT SCH ×2 (08:04→22:35)
[2021-10-27] MEDS: TAMSULOSIN HCL 0.4 MG CAP PO SCH (08:05)
[2021-10-27 08:08] LABS: INR 1.8 (0.9-1.1); Prothrombin Time 17.2 Seconds (9.0-12.0)
[2021-10-27 08:16] LABS: BUN Creatinine Ratio 14.1 (10-20); Calcium 8.8 mg/dl (8.5-10.1); Creatinine Clr Calc Pharmacy 153.8 ml/min; Est GFR (African American) 101.8 ml/min; Est GFR (Non-African American) 87.8 ml/min; Magnesium 1.9 mg/dl (1.7-2.4); Potassium 4.9 mmol/L (3.5-5.1)
[2021-10-27] MEDS: LORazepam 0.5 MG TAB PO PRN ×2 (08:39→22:34)
[2021-10-27] MEDS: traMADol HCL 50 MG TABLET PO PRN ×3 (08:39→22:34)
[2021-10-27] MEDS: buprenorphine HCL 8 MG SUBL SL SCH ×3 (08:39→22:35)
[2021-10-27] MEDS: INSULIN ASPART PER UNIT SC SCH ×4 (08:40→22:16)
[2021-10-27] MEDS ORDERED: ALBUTEROL HFA 8 GM INHALER INH PRN (08:43)
--- NOTE | 2021-10-27 10:38 | Cardiology Progress Note ---
Date of Service October 27, 2021 Assessment & Plan (1) RHF (right heart failure): Plan: Patient source is having discontinued his diuretics for about a week and half, citing dysfunction with his Lloyd catheter. Lloyd catheter now back in place. It is draining clear yellow urine. Fluid balance negative almost 7 liters in the last 24 hours. Electrolytes stable. Continue furosemide 40 milligrams IV twice daily. Per most recent outpatient neurology progress note, future considerations include TURP, however need to find a window clinical stability when the patient is optimized for such an operation. (2) COVID-19: Plan: At baseline, patient were supplemental oxygen at bedtime. He is currently on oxygen , 4 liters nasal cannula most recent pulse oximetry 97%. Chest x-ray without overt infiltrate, however technically limited study due to body habitus and poor inspiration. Continue supportive care. Patient with multiple family members at home have been ill with SARS-CoV-2. He describes several days of subjective fevers and chills, but afebrile while in the hospital. Plan: DVT prophylaxis: Continue Coumadin, INR 1.8, on chronic Coumadin due to history of recurrent pulmonary embolism. Admission and Anticipated Discharge Date Admission Date: October 24, 2021 Subjective Patient seen in cardiology follow-up. No acute complaints. Notes ongoing easy fatigability, exertional shortness of breath, and profound lower extremity edema. Telemetry reveals sinus rhythm in the 70s. Review of Systems Review of Systems: All systems reviewed & are unremarkable except as noted in HPI & below Physical Exam Constitutional: + morbidly obese Respiratory: no respiratory distress, no labored breathing, no cough and not tachypneic Cardiovascular: Rate/Rhythm: regular rhythm Extremities: + edema ( 3+ lower extremity edema, up to the thighs) Neurologic: conversant, no focal deficits Results & Data ([facility]) Vital Signs (Past 12 Hours) Vital Signs Temp Pulse Pulse Resp BP Pulse Ox 10/27/21 07:33 36.4 C L 73 20 105/67 97 10/27/21 02:48 37 C 72 22 121/74 96 10/26/21 23:22 79 Laboratory Results Coagulation 10/27/21 Range/Units 07:28 PT 17.2 H (9.0-12.0) Seconds Comprehensive Metabolic Panel 10/27/21 Range/Units 07:28 Sodium 137 (136-145) mmol/L Potassium 4.9 (3.5-5.1) mmol/L Chloride 98 (98-107) mmol/L Carbon Dioxide 38 H (21-32) mmol/L BUN 14 (6-23) mg/dl Creatinine 0.99 (0.6-1.4) mg/dl Glucose 90 (70-99(Fasting)) mg/dl Calcium 8.8 (8.5-10.1) mg/dl Intake and Output 10/26/21 10/27/21 10/27/21 22:59 06:59 14:59 Intake Total 200 / 1440 120 / 1440 Output Total 2099 1225 / 6525 Balance -1900 / -5085 -1105 / -5085 Intake: Oral 200 / 1440 120 / 1440 Output: Urine 400 / 400 Urine Amount (Catheter) 2099 825 / 6125 Lloyd/Indwelling 2099 825 / 6125
[2021-10-27] MEDS: methylPREDNISolone 40 MG in SYRINGE 0 ML IV SCH (12:50)
[2021-10-27] MEDS: ATORVASTATIN 40 MG TAB PO SCH (12:52)
[2021-10-27] MEDS: ALBUT/IPRATROP 3MG/0.5MG NEB 3 ML VIAL INH SCH ×2 (14:40→22:54)
--- NOTE | 2021-10-27 15:08 | Hospitalist Progress Note ---
Date of Service October 27, 2021 Assessment & Plan (1) Acute right-sided congestive heart failure: Plan: Acute on chronic R heart failure with preserved EF Has not been taking his Lasix for the last 1 week or so Presented with shortness of breath but has not been require any extra oxygen to maintain saturation Likely has acute right-sided congestive heart failure with fluid overload Chest x-ray did not show any overt pulmonary edema and the BNP was within normal range Has been getting Lasix intravenously and making out a lot of urine He is feeling better already Appreciate cardiology input and recommendation to continue current dose of fu rosemide Clinically much better and plan to discharge home in a day or 2 Has been diuresing enough and will continue current dose of Lasix Generally weak We will get PT and OT evaluation Remains generally weak and awaiting PT and OT evaluation to determine disposition He wants to go to rehab (2) Fluid overload: Plan: As above [place] [address] [place] (3) COVID-19: Plan: Noted to be COVID-19 virus positive Has had 2 doses of vaccine All of the family members have COVID-19 virus infection Clinically asymptomatic and has not been require any extra oxygen to maintain saturation Does not qualify for any intervention for COVID-19 virus infection No symptoms secondary to COVID-19 virus infection (4) Chronic respiratory failure: Plan: History of chronic respiratory failure secondary to COPD Has been on home oxygen with 4 L to maintain saturation Still requiring 4 L in the hospital-remains stable (5) COPD (chronic obstructive pulmonary disease): Plan: No signs and or symptoms of exacerbation Has minimal wheezing anteriorly-in part due to transmitted sounds from the trachea We will give [id number] inhalation of albuterol Seems to have acute bronchitis and may have mild exacerbation of COPD Will give a small dose of intravenous Solu-Medrol and also nebulized bronchodilator (6) Pickwickian syndrome: (7) BPH (benign prostatic hyperplasia): Plan: History of prostrate hypertrophy and has a indwelling Lloyd catheter History of recurrent catheter associated UTI Catheter was out for about 1 week and since then he has not been taking his Lasix Successfully introduced catheter and he does not require any urology consult as of today We will continue intravenous Lasix and give catheter on discharge (8) Seizure-like activity: Plan: Continue current medications (9) History of pulmonary embolism: Plan: Has been on Coumadin INR is 1.8-we will continue (10) 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: Plan: Continue insulin SSI Chronic pain syndrome Has been on Suboxone We will continue that Has been taking Ultram 50 mg every 6 hourly-PDMP is not showing any work from prescription since July of last year Other significant medical conditions remain stable DVT prophylaxis On Coumadin CODE STATUS Full Admission and Anticipated Discharge Date Admission Date: October 24, 2021 Subjective 10/25/2021 The patient was seen and examined in telemetry unit He complains to be bloated but denies any increasing shortness of breath and her cough Most of his family members have Covid and he is not sure when did he get it but is not having any symptoms from it The catheter was put in and he has been diuresing a lot 10/26/2021 The patient was seen and examined in telemetry unit and in the COVID room He feels crappy Has been diuresing enough and edema of the legs have improved a lot No more respiratory symptoms and remains generally weak 10/27/2021 The patient was seen and examined in telemetry unit and in the COVID room He has not been feeling well since admission and complains to have some wheezing without any shortness of breath Denies any fever and/or chills, no chest pain and/or palpitation Review of Systems Review of Systems: All systems reviewed and are unremarkable except as noted below Physical Exam Constitutional: well developed, well nourished and + morbidly obese; not ill a ppearing Eyes: PERRL, conjunctivae normal, anicteric sclerae ENMT: external ear and nose normal, oropharynx normal Neck: trachea midline, no thyromegaly Respiratory: no respiratory distress Auscultation: + diminished lung sounds and + wheezes (Anteriorly); no crackles Cardiovascular: Rate/Rhythm: regular rate and regular rhythm; not tachycardic Heart Sounds: normal S1 and normal S2; no murmur Extremities: + edema (Trace to 1+ edema bilaterally with chronic skin changes) Gastrointestinal (Abdomen): Inspection/Auscultation: + abdomen distended and normal bowel sounds Percussion/Palpation: abdomen soft; abdomen nontender Neurologic: normal touch/pain/proprioception; no focal motor deficits Results & Data Results & Data ([facility]) Vital Signs (Past 12 Hours) Vital Signs Temp Pulse Resp BP Pulse Ox Pulse Ox 10/27/21 14:41 84 18 95 10/27/21 12:01 36.9 C 80 18 105/71 97 10/27/21 10:34 97 10/27/21 07:33 36.4 C L 73 20 105/67 97 Laboratory Results BMP 10/27/21 07:28 Sodium 137 Potassium 4.9 Chloride 98 Carbon Dioxide 38 H BUN 14 Creatinine 0.99 Glucose 90 Calcium 8.8 Medications Administered Current Inpatient Medications Acetaminophen (Acetaminophen 325 Mg Tab) 650 mg PO Q4H PRN PRN Reason: Pain or Fever Stop: 11/23/21 23:52 Albuterol (Albuterol Hfa 8 Gm Inhaler) 2 puffs INH Q4R PRN PRN Reason: Shortness Of Breath Or Wheezing Stop: 11/25/21 15:29 Albuterol (Albut/Ipratrop 3mg/0.5mg Neb 3 Ml Vial) 3 ml INH Q8R [facility]; Protocol Stop: 11/26/21 14:59 Last Admin: 10/27/21 14:40 Dose: 3 ml Documented by: Aspirin (Aspirin 81 Mg Ectab) 81 mg PO QAM [facility] Stop: 11/24/21 08:59 Last Admin: 10/27/21 07:59 Dose: 81 mg Documented by: Atorvastatin Calcium (Atorvastatin 40 Mg Tab) 80 mg PO DAILY@1200 [facility] Stop: 11/24/21 11:59 Last Admin: 10/27/21 12:52 Dose: 80 mg Documented by: Benzonatate (Benzonatate 100 Mg Capsule) 100 mg PO TID PRN PRN Reason: Cough Stop: 11/25/21 03:45 Last Admin: 10/27/21 08:01 Dose: 100 mg Documented by: Buprenorphine HCl (Buprenorphine Hcl 8 Mg Subl) 8 mg SL TID [facility] Stop: 11/24/21 08:59 Last Admin: 10/27/21 14:45 Dose: 8 mg Documented by: Cyclobenzaprine HCl (Cyclobenzaprine Hcl 10 Mg Tab) 10 mg PO BID PRN PRN Reason: Muscle Spasm Stop: 11/23/21 23:52 Last Admin: 10/27/21 14:45 Dose: 10 mg Documented by: Docusate Sodium (Docusate Sodium 100 Mg Cap) 100 mg PO BID [facility] Stop: 11/24/21 08:59 Last Admin: 10/27/21 07:57 Dose: 100 mg Documented by: Duloxetine HCl (Duloxetine Hcl 60 Mg Cap) 60 mg PO DAILY [facility] Stop: 11/24/21 08:59 Last Admin: 10/27/21 08:01 Dose: 60 mg Documented by: Famotidine (Famotidine 20 Mg Tab) 20 mg PO DAILY [facility] Stop: 11/24/21 08:59 Last Admin: 10/27/21 07:57 Dose: 20 mg Documented by: Ferrous Sulfate (Ferrous Sulfate 325 Mg Tab) 325 mg PO QAM [facility] Stop: 11/24/21 08:59 Last Admin: 10/27/21 07:58 Dose: 325 mg Documented by: Finasteride (Finasteride 5 Mg Tab) 5 mg PO QAM [facility] Stop: 11/24/21 08:59 Last Admin: 10/27/21 08:00 Dose: 5 mg Documented by: Fluticasone Propionate (Fluticasone Propionate Na Spr 16 Gm Btl) 2 sprays NA DAILY [facility] Stop: 11/24/21 08:59 Last Admin: 10/27/21 07:55 Dose: 2 sprays Documented by: Folic Acid (Folic Acid 1 Mg Tab) 1 mg PO QAM [facility] Stop: 11/24/21 08:59 Last Admin: 10/27/21 07:58 Dose: 1 mg Documented by: Furosemide (Furosemide 40 Mg/4 Ml Vial) 40 mg IV BID17 [facility] Stop: 11/24/21 00:44 Last Admin: 10/27/21 08:01 Dose: 40 mg Documented by: Gabapentin (Gabapentin 800 Mg Tab) 800 mg PO TID [facility] Stop: 11/24/21 08:59 Last Admin: 10/27/21 14:47 Dose: 800 mg Documented by: Guaifenesin (Guaifenesin 600 Mg Tabcr) 600 mg PO Q12 [facility] Stop: 11/25/21 08:59 Last Admin: 10/27/21 07:59 Dose: 600 mg Documented by: Hydroxyzine HCl (Hydroxyzine Hcl 25 Mg Tab) 25 mg PO QID PRN PRN Reason: Anxiety Stop: 11/23/21 23:52 Methylprednisolone 40 mg/ (Syringe) 0.64 mls @ 1.5 mls/min IV DAILY [facility] Stop: 11/26/21 12:14 Last Admin: 10/27/21 12:50 Dose: 1.5 mls/min Documented by: Insulin Aspart (Insulin Aspart Per Unit) 0 units SC ACHS [facility] Stop: 11/24/21 07:29 Last Admin: 10/27/21 12:47 Dose: 7 units Documented by: Insulin Glargine (Insulin Glargine Solostar 100 Units/Ml 3 Ml Pen) 50 units SC HS [facility] Stop: 11/24/21 01:59 Last Admin: 10/26/21 21:04 Dose: 50 units Documented by: Isosorbide Mononitrate (Isosorbide Crenshaw Extended Rel 30 Mg Tabcr) 30 mg PO DAILY [facility] Stop: 11/24/21 08:59 Last Admin: 10/27/21 08:00 Dose: 30 mg Documented by: Lactobacillus Acidophilus (Advanced Probiotic 1250 Mg Capsule) 1 cap PO TID [facility] Stop: 11/24/21 08:59 Last Admin: 10/27/21 14:46 Dose: 1 cap Documented by: Lorazepam (Lorazepam 0.5 Mg Tab) 0.5 mg PO Q8 PRN PRN Reason: Anxiety Stop: 11/23/21 23:52 Last Admin: 10/27/21 08:39 Dose: 0.5 mg Documented by: Magnesium Oxide (Magnesium Oxide 400 Mg Tab) 400 mg PO DAILY [facility] Stop: 11/24/21 08:59 Last Admin: 10/27/21 07:59 Dose: 400 mg Documented by: Melatonin (Melatonin 3 Mg Tab) 9 mg PO HS PRN PRN Reason: Sleep Stop: 11/24/21 21:57 Last Admin: 10/26/21 22:11 Dose: 9 mg Documented by: Methenamine Hippurate (Methenamine Hippurate 1 Gm Tab) 1 gm PO DAILY [facility] Stop: 11/24/21 08:59 Last Admin: 10/27/21 07:57 Dose: 1 gm Documented by: Metoprolol Succinate (Metoprolol Succ 25mg Ext Rel Tab) 75 mg PO BID [facility] Stop: 11/24/21 08:59 Last Admin: 10/27/21 07:57 Dose: 75 mg Documented by: Miscellaneous (Urea [Ureacin-20] 20 % - Order Awaiting Action) 1 ea N/A QS [facility] Stop: 11/24/21 07:59 Last Admin: 10/27/21 09:43 Dose: Not Given Documented by: Miscellaneous (Remove Nicoderm Patch) 1 ea N/A DAILY@0859 [facility] Stop: 11/25/21 08:58 Last Admin: 10/27/21 08:03 Dose: 1 ea Documented by: Nicotine (Nicotine 21 Mg/24 Hr Tdsy) 21 mg TD QAM [facility] Stop: 11/24/21 12:59 Last Admin: 10/27/21 08:02 Dose: 21 mg Documented by: Nitroglycerin (Nitroglycerin Sl 0.4 Mg/Tab Tab) 0.4 mg SL UD PRN PRN Reason: Chest Pain Stop: 11/23/21 23:52 Nystatin (Nystatin Powder 15gm Btl) 1 appln EXT TID PRN PRN Reason: Skin Irritation Stop: 11/23/21 23:52 Last Admin: 10/27/21 08:03 Dose: 1 appln Documented by: Nystatin (Nystatin Oint 15 Gm Tube) 1 appln EXT BID [facility] Stop: 11/24/21 00:59 Last Admin: 10/27/21 08:04 Dose: 1 appln Documented by: Ondansetron HCl (Ondansetron Inj 2 Mg/Ml 2 Ml Vial) 4 mg IV Q6H PRN PRN Reason: Nausea Stop: 11/23/21 23:52 Ondansetron HCl (Ondansetron 4 Mg Od Tab) 4 mg PO Q8 PRN PRN Reason: Nausea And Vomiting Stop: 11/24/21 01:03 Pantoprazole Sodium (Pantoprazole 40 Mg Tab) 40 mg PO DAILYBB [facility] Stop: 11/24/21 06:29 Last Admin: 10/27/21 06:01 Dose: 40 mg Documented by: Polyethylene Glycol (Polyethylene (Miralax) 17 Gm Pack) 17 gm PO QAM [facility] Stop: 11/24/21 08:59 Last Admin: 10/27/21 07:56 Dose: 17 gm Documented by: Potassium Chloride (Potassium Chloride Crtab 20 Meq Tabcr) 20 meq PO BID [facility] Stop: 11/24/21 08:59 Last Admin: 10/27/21 08:03 Dose: 20 meq Documented by: Sennosides (Senna 8.6 Mg Tab) 8.6 mg PO DAILY PRN PRN Reason: Constipation Stop: 11/23/21 23:52 Spironolactone (Spironolactone 25 Mg Tab) 25 mg PO QAM [facility] Stop: 11/24/21 08:59 Last Admin: 10/27/21 08:00 Dose: 25 mg Documented by: Tamsulosin HCl (Tamsulosin Hcl 0.4 Mg Cap) 0.4 mg PO QAM [facility] Stop: 11/24/21 08:59 Last Admin: 10/27/21 08:05 Dose: 0.4 mg Documented by: Tramadol HCl (Tramadol Hcl 50 Mg Tablet) 50 mg PO Q6 PRN PRN Reason: Pain Stop: 11/23/21 23:52 Last Admin: 10/27/21 14:45 Dose: 50 mg Documented by: Umeclidinium Maroa (Umeclidinium [place] 62.5mcg/Blister 7 Puffs/Inhaler) 1 puffs INH [facility] Stop: 11/24/21 08:59 Last Admin: 10/27/21 07:56 Dose: 1 puffs Documented by: Warfarin Sodium (Warfarin Sod 7.5 Mg Tab) 7.5 mg PO DAILY@1600 [facility] Stop: 11/25/21 15:59 Last Admin: 10/26/21 16:34 Dose: 7.5 mg Documented by: (1) Fluid overload Hypervolemia type: unspecified Qualified Code(s): E87.70 - Fluid overload, unspecified (2) COPD (chronic obstructive pulmonary disease) COPD type: COPD with acute exacerbation Qualified Code(s): J44.1 - Chronic obstructive pulmonary disease with (acute) exacerbation
[2021-10-27] MEDS: WARFARIN SOD 7.5 MG TAB PO SCH (17:43)
[2021-10-27] MEDS: INSULIN GLARGINE SOLOSTAR 100 UNITS/ML 3 ML PEN SC SCH (22:17)
[2021-10-27] MEDS: MELATONIN 3 MG TAB PO PRN (22:34)
[2021-10-28] MEDS: PANTOprazole 40 MG TAB PO SCH (05:49)
[2021-10-28 06:54] LABS: Prothrombin Time 19.6 Seconds (9.0-12.0)
[2021-10-28 07:04] LABS: BUN Creatinine Ratio 23.3 (10-20); Calcium 9.4 mg/dl (8.5-10.1); Creatinine Clr Calc Pharmacy 208.5 ml/min; Est GFR (African American) 124.5 ml/min; Est GFR (Non-African American) 107.4 ml/min; Potassium 4.5 mmol/L (3.5-5.1)
[2021-10-28] MEDS: ALBUT/IPRATROP 3MG/0.5MG NEB 3 ML VIAL INH SCH ×3 (07:07→22:15)
[2021-10-28] MEDS: traMADol HCL 50 MG TABLET PO PRN ×4 (08:53→21:39)
[2021-10-28] MEDS: buprenorphine HCL 8 MG SUBL SL SCH ×3 (08:53→21:42)
[2021-10-28] MEDS: LORazepam 0.5 MG TAB PO PRN ×2 (08:53→21:40)
[2021-10-28] MEDS: TAMSULOSIN HCL 0.4 MG CAP PO SCH (08:54)
[2021-10-28] MEDS: FINASTERIDE 5 MG TAB PO SCH (08:54)
[2021-10-28] MEDS: FERROUS SULFATE 325 MG TAB PO SCH (08:54)
[2021-10-28] MEDS: ASPIRIN 81 MG ECTAB PO SCH (08:54)
[2021-10-28] MEDS: DULoxetine HCL 60 MG CAP PO SCH (08:54)
[2021-10-28] MEDS: DOCUSATE SODIUM 100 MG CAP PO SCH ×2 (08:54→21:12)
[2021-10-28] MEDS: ADVANCED PROBIOTIC 1250 MG CAPSULE PO SCH ×3 (08:54→21:13)
[2021-10-28] MEDS: FAMOTIDINE 20 MG TAB PO SCH (08:54)
[2021-10-28] MEDS: POTASSIUM CHLORIDE CRTAB 20 MEQ TABCR PO SCH ×2 (08:54→21:15)
[2021-10-28] MEDS: ISOSORBIDE MONO EXTENDED REL 30 MG TABCR PO SCH (08:54)
[2021-10-28] MEDS: METHENAMINE HIPPURATE 1 GM TAB PO SCH (08:54)
[2021-10-28] MEDS: GABAPENTIN 800 MG TAB PO SCH ×3 (08:54→21:13)
[2021-10-28] MEDS: SPIRONOLACTONE 25 MG TAB PO SCH (08:54)
[2021-10-28] MEDS: FOLIC ACID 1 MG TAB PO SCH (08:54)
[2021-10-28] MEDS: guaiFENesin 600 MG TABCR PO SCH ×2 (08:54→21:13)
[2021-10-28] MEDS: FUROSEMIDE 40 MG/4 ML VIAL IV SCH ×2 (08:55→18:09)
[2021-10-28] MEDS: SENNA 8.6 MG TAB PO PRN (08:55)
[2021-10-28] MEDS: MAGNESIUM OXIDE 400 MG TAB PO SCH (08:55)
[2021-10-28] MEDS: METOPROLOL SUCC 25MG EXT REL TAB PO SCH ×2 (08:55→21:15)
[2021-10-28] MEDS: NICOTINE 21 MG/24 HR TDSY TD SCH (08:55)
[2021-10-28] MEDS: POLYETHYLENE (MIRALAX) 17 GM PACK PO SCH (08:56)
[2021-10-28] MEDS: INSULIN ASPART PER UNIT SC SCH ×4 (08:56→21:41)
[2021-10-28] MEDS: FLUTICASONE PROPIONATE NA SPR 16 GM BTL SCH (08:56)
[2021-10-28] MEDS: NYSTATIN OINT 15 GM TUBE EXT SCH ×2 (08:57→21:23)
[2021-10-28] MEDS: UMECLIDINIUM BROMIDE 62.5MCG/BLISTER 7 PUFFS/INHALER INH SCH (08:57)
[2021-10-28] MEDS: methylPREDNISolone 40 MG in SYRINGE 0 ML IV SCH ×2 (09:30→21:41)
--- NOTE | 2021-10-28 10:40 | Cardiology Progress Note ---
Date of Service October 28, 2021 Assessment & Plan (1) RHF (right heart failure): Plan: (1) RHF (right heart failure): Plan: Patient source is having discontinued his diuretics for about a week and half, citing dysfunction with his Lloyd catheter. Electrolytes stable. Continue furosemide 40 milligrams IV twice daily. Per most recent outpatient neurology progress note, future considerations include TURP, however need to find a window clinical stability when the patient is optimized for such an operation. (2) COVID-19: Plan: At baseline, patient were supplemental oxygen at bedtime. He is currently on oxygen , 4 liters nasal cannula most recent pulse oximetry 97%. Continue supportive care, oxygen supplementation , IV steroids. Patient with multiple family members at home have been ill with SARS-CoV-2. Plan: DVT prophylaxis: Continue Coumadin, INR 2, on chronic Coumadin due to history of recurrent pulmonary embolism. Admission and Anticipated Discharge Date Admission Date: October 24, 2021 Subjective Mr Milner is assessed in cardiology follow up via telephone interview. He notes progressive fatigue since my interview with him yesterday. Now on oxygen at 6L /m as compared to 4 L/m and has received IV solumedrol. Continues to diurese 6.8 L of urine output in the last 24 hours. Physical Exam Physical Exam: No in person physical examination was performed. Results & Data ([facility]) Vital Signs (Past 12 Hours) Vital Signs Temp Pulse Pulse Pulse Resp BP Pulse Ox 10/28/21 08:03 36.5 C 69 18 114/74 94 10/28/21 07:07 78 18 94 10/28/21 04:39 36.5 C 61 26 H 113/71 94 10/27/21 23:17 37.0 C 80 16 110/62 92 10/27/21 22:59 74 10/27/21 22:54 79 16 93 Laboratory Results Coagulation 10/28/21 Range/Units 05:46 PT 19.6 H (9.0-12.0) Seconds Comprehensive Metabolic Panel 10/28/21 Range/Units 05:46 Sodium 136 (136-145) mmol/L Potassium 4.5 (3.5-5.1) mmol/L Chloride 99 (98-107) mmol/L Carbon Dioxide 35 H (21-32) mmol/L BUN 17 (6-23) mg/dl Creatinine 0.73 (0.6-1.4) mg/dl Glucose 143 H (70-99(Fasting)) mg/dl Calcium 9.4 (8.5-10.1) mg/dl Intake and Output 10/27/21 10/28/21 10/28/21 22:59 06:59 14:59 Intake Total 200 / 440 Output Total 3400 / 8750 1500 / 8750 Balance -3200 / -8310 -1500 / -8310 Intake: Oral 200 / 440 Output: Urine 800 / 800 Urine Amount (Catheter) 2600 / 7950 1500 / 7950 Lloyd/Indwelling 2600 / 7950 1500 / 7950
[2021-10-28] MEDS: ATORVASTATIN 40 MG TAB PO SCH (12:54)
[2021-10-28] MEDS: CYCLOBENZAPRINE HCL 10 MG TAB PO PRN ×2 (14:39→21:39)
[2021-10-28] MEDS ORDERED: traMADol HCL 50 MG TABLET PO ONE (15:45)
--- NOTE | 2021-10-28 17:20 | Hospitalist Progress Note ---
Date of Service October 28, 2021 Assessment & Plan (1) Acute right-sided congestive heart failure: Plan: Acute on chronic R heart failure with preserved EF Has not been taking his Lasix for the last 1 week or so Presented with shortness of breath but has not been require any extra oxygen to maintain saturation Likely has acute right-sided congestive heart failure with fluid overload Chest x-ray did not show any overt pulmonary edema and the BNP was within normal range Has been getting Lasix intravenously and making out a lot of urine He is feeling better already Appreciate cardiology input and recommendation to continue current dose of fu rosemide Clinically much better and plan to discharge home in a day or 2 Has been diuresing enough and will continue current dose of Lasix No more signs of fluid overload Chronic pain syndrome Has been on Suboxone We will continue that Has been taking Ultram 50 mg every 6 hourly---PDMP is not showing any prescription since July of last year and it was a started as part of the medication list of [facility]. He always asks for narcotic pain medications or wants to have increased dose of Ultram 200 mg every 6 hours-which were not given The PCP did discuss with his pain therapist Dr. Harsha Valencia #[phone] and was told that he can take narcotic pain medication when he goes to the rehab center and after discharge he will prescribe Suboxone but he did not want to give any narcotics or did not suggest any doses. The PCP declined to give any narcotics given the history of abuse. Generally weak We will get PT and OT evaluation Remains generally weak and awaiting PT and OT evaluation to determine disposition He wants to go to rehab PT and OT appreciated-recommended rehab (2) Fluid overload: Plan: As above [place] [address] [place] (3) COVID-19: Plan: Noted to be COVID-19 virus positive Has had 2 doses of vaccine All of the family members have COVID-19 virus infection Clinically asymptomatic and has not been require any extra oxygen to maintain saturation Does not qualify for any intervention for COVID-19 virus infection No symptoms secondary to COVID-19 virus infection (4) Chronic respiratory failure: Plan: History of chronic respiratory failure secondary to COPD Has been on home oxygen with 4 L to maintain saturation Still requiring 4 L in the hospital-remains stable (5) COPD (chronic obstructive pulmonary disease): Plan: No signs and or symptoms of exacerbation Has minimal wheezing anteriorly-in part due to transmitted sounds from the trachea We will give [id number] inhalation of albuterol Seems to have acute bronchitis and may have mild exacerbation of COPD Will give a small dose of intravenous Solu-Medrol and also nebulized bronchodilator Likely has a mild exacerbation-we will increase Solu-Medrol to 40 mg twice daily for a day or 2 and go back to oral prednisone thereafter Has been getting nebulized bronchodilator every 8 hours routinely Clinically better (6) Pickwickian syndrome: (7) BPH (benign prostatic hyperplasia): Plan: History of prostrate hypertrophy and has a indwelling Lloyd catheter History of recurrent catheter associated UTI Catheter was out for about 1 week and since then he has not been taking his Lasix Successfully introduced catheter and he does not require any urology consult as of today We will continue intravenous Lasix and give catheter on discharge (8) Seizure-like activity: Plan: Continue current medications (9) History of pulmonary embolism: Plan: Has been on Coumadin INR is 1.8-we will continue (10) 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: Plan: Continue insulin SSI Other significant medical conditions remain stable DVT prophylaxis On Coumadin CODE STATUS Full Admission and Anticipated Discharge Date Admission Date: October 24, 2021 Subjective 10/25/2021 The patient was seen and examined in telemetry unit He complains to be bloated but denies any increasing shortness of breath and her cough Most of his family members have Covid and he is not sure when did he get it but is not having any symptoms from it The catheter was put in and he has been diuresing a lot 10/26/2021 The patient was seen and examined in telemetry unit and in the COVID room He feels crappy Has been diuresing enough and edema of the legs have improved a lot No more respiratory symptoms and remains generally weak 10/27/2021 The patient was seen and examined in telemetry unit and in the COVID room He has not been feeling well since admission and complains to have some wheezing without any shortness of breath Denies any fever and/or chills, no chest pain and/or palpitation 10/28/2021 The patient was seen and examined in telemetry unit and in the COVID room He has been complaining of wheezing and feels generally weak Denies any chest pain and/or palpitation Breathing remains stable Review of Systems Review of Systems: All systems reviewed and are unremarkable except as noted below Respiratory: Complains wheezing without any increasing shortness of breath Musculoskeletal: Nonspecific pain at the back Physical Exam Constitutional: well developed, well nourished and + morbidly obese; not ill appearing Eyes: PERRL, conjunctivae normal, anicteric sclerae ENMT: external ear and nose normal, oropharynx normal Neck: trachea midline, no thyromegaly Respiratory: no respiratory distress Auscultation: + diminished lung sounds and + wheezes (Anteriorly); no crackles Cardiovascular: Rate/Rhythm: regular rate and regular rhythm; not tachycardic Heart Sounds: normal S1 and normal S2; no murmur Extremities: + edema (Trace to 1+ edema bilaterally with chronic skin changes) Gastrointestinal (Abdomen): Inspection/Auscultation: + abdomen distended and normal bowel sounds Percussion/Palpation: abdomen soft; abdomen nontender Musculoskeletal: No acute arthritis in any joint Neurologic: normal touch/pain/proprioception; no focal motor deficits Results & Data Results & Data ([facility]) Vital Signs (Past 12 Hours) Vital Signs Temp Pulse Resp BP Pulse Ox 10/28/21 16:49 36.7 C 68 20 107/70 96 10/28/21 14:23 66 20 97 10/28/21 12:06 36.5 C 66 19 115/72 96 10/28/21 08:03 36.5 C 69 18 114/74 94 10/28/21 07:07 78 18 94 Laboratory Results [facility] 10/28/21 05:46 Sodium 136 Potassium 4.5 Chloride 99 Carbon Dioxide 35 H BUN 17 Creatinine 0.73 Glucose 143 H Calcium 9.4 Medications Administered Current Inpatient Medications Acetaminophen (Acetaminophen 325 Mg Tab) 650 mg PO Q4H PRN PRN Reason: Pain or Fever Stop: 11/23/21 23:52 Albuterol (Albuterol Hfa 8 Gm Inhaler) 2 puffs INH Q4R PRN PRN Reason: Shortness Of Breath Or Wheezing Stop: 11/25/21 15:29 Albuterol (Albut/Ipratrop 3mg/0.5mg Neb 3 Ml Vial) 3 ml INH Q8R [facility]; Protocol Stop: 11/26/21 14:59 Last Admin: 10/28/21 14:22 Dose: 3 ml Documented by: Aspirin (Aspirin 81 Mg Ectab) 81 mg PO QAM [facility] Stop: 11/24/21 08:59 Last Admin: 10/28/21 08:54 Dose: 81 mg Documented by: Atorvastatin Calcium (Atorvastatin 40 Mg Tab) 80 mg PO DAILY@1200 [facility] Stop: 11/24/21 11:59 Last Admin: 10/28/21 12:54 Dose: 80 mg Documented by: Benzonatate (Benzonatate 100 Mg Capsule) 100 mg PO TID PRN PRN Reason: Cough Stop: 11/25/21 03:45 Last Admin: 10/27/21 08:01 Dose: 100 mg Documented by: Buprenorphine HCl (Buprenorphine Hcl 8 Mg Subl) 8 mg SL TID [facility] Stop: 11/24/21 08:59 Last Admin: 10/28/21 14:39 Dose: 8 mg Documented by: Cyclobenzaprine HCl (Cyclobenzaprine Hcl 10 Mg Tab) 10 mg PO BID PRN PRN Reason: Muscle Spasm Stop: 11/23/21 23:52 Last Admin: 10/28/21 14:39 Dose: 10 mg Documented by: Docusate Sodium (Docusate Sodium 100 Mg Cap) 100 mg PO BID [facility] Stop: 11/24/21 08:59 Last Admin: 10/28/21 08:54 Dose: 100 mg Documented by: Duloxetine HCl (Duloxetine Hcl 60 Mg Cap) 60 mg PO DAILY [facility] Stop: 11/24/21 08:59 Last Admin: 10/28/21 08:54 Dose: 60 mg Documented by: Famotidine (Famotidine 20 Mg Tab) 20 mg PO DAILY [facility] Stop: 11/24/21 08:59 Last Admin: 10/28/21 08:54 Dose: 20 mg Documented by: Ferrous Sulfate (Ferrous Sulfate 325 Mg Tab) 325 mg PO QAM [facility] Stop: 11/24/21 08:59 Last Admin: 10/28/21 08:54 Dose: 325 mg Documented by: Finasteride (Finasteride 5 Mg Tab) 5 mg PO QAM [facility] Stop: 11/24/21 08:59 Last Admin: 10/28/21 08:54 Dose: 5 mg Documented by: Fluticasone Propionate (Fluticasone Propionate Na Spr 16 Gm Btl) 2 sprays NA DAILY [facility] Stop: 11/24/21 08:59 Last Admin: 10/28/21 08:56 Dose: 2 sprays Documented by: Folic Acid (Folic Acid 1 Mg Tab) 1 mg PO QAM [facility] Stop: 11/24/21 08:59 Last Admin: 10/28/21 08:54 Dose: 1 mg Documented by: Furosemide (Furosemide 40 Mg/4 Ml Vial) 40 mg IV BID17 [facility] Stop: 11/24/21 00:44 Last Admin: 10/28/21 08:55 Dose: 40 mg Documented by: Gabapentin (Gabapentin 800 Mg Tab) 800 mg PO TID [facility] Stop: 11/24/21 08:59 Last Admin: 10/28/21 14:40 Dose: 800 mg Documented by: Guaifenesin (Guaifenesin 600 Mg Tabcr) 600 mg PO Q12 [facility] Stop: 11/25/21 08:59 Last Admin: 10/28/21 08:54 Dose: 600 mg Documented by: Hydroxyzine HCl (Hydroxyzine Hcl 25 Mg Tab) 25 mg PO QID PRN PRN Reason: Anxiety Stop: 11/23/21 23:52 Methylprednisolone 40 mg/ (Syringe) 0.64 mls @ 1.5 mls/min IV BID [facility] Stop: 11/27/21 20:59 Insulin Aspart (Insulin Aspart Per Unit) 0 units SC ACHS [facility] Stop: 11/24/21 07:29 Last Admin: 10/28/21 12:54 Dose: 6 units Documented by: Insulin Glargine (Insulin Glargine Solostar 100 Units/Ml 3 Ml Pen) 50 units SC HS [facility] Stop: 11/24/21 01:59 Last Admin: 10/27/21 22:17 Dose: 50 units Documented by: Isosorbide Mononitrate (Isosorbide Thomas Extended Rel 30 Mg Tabcr) 30 mg PO DAILY [facility] Stop: 11/24/21 08:59 Last Admin: 10/28/21 08:54 Dose: 30 mg Documented by: Lactobacillus Acidophilus (Advanced Probiotic 1250 Mg Capsule) 1 cap PO TID [facility] Stop: 11/24/21 08:59 Last Admin: 10/28/21 14:40 Dose: 1 cap Documented by: Lorazepam (Lorazepam 0.5 Mg Tab) 0.5 mg PO Q8 PRN PRN Reason: Anxiety Stop: 11/23/21 23:52 Last Admin: 10/28/21 08:53 Dose: 0.5 mg Documented by: Magnesium Oxide (Magnesium Oxide 400 Mg Tab) 400 mg PO DAILY [facility] Stop: 11/24/21 08:59 Last Admin: 10/28/21 08:55 Dose: 400 mg Documented by: Melatonin (Melatonin 3 Mg Tab) 9 mg PO HS PRN PRN Reason: Sleep Stop: 11/24/21 21:57 Last Admin: 10/27/21 22:34 Dose: 9 mg Documented by: Methenamine Hippurate (Methenamine Hippurate 1 Gm Tab) 1 gm PO DAILY [facility] Stop: 11/24/21 08:59 Last Admin: 10/28/21 08:54 Dose: 1 gm Documented by: Metoprolol Succinate (Metoprolol Succ 25mg Ext Rel Tab) 75 mg PO BID [facility] Stop: 11/24/21 08:59 Last Admin: 10/28/21 08:55 Dose: 75 mg Documented by: Miscellaneous (Urea [Ureacin-20] 20 % - Order Awaiting Action) 1 ea N/A QS [facility] Stop: 11/24/21 07:59 Last Admin: 10/28/21 08:56 Dose: Not Given Documented by: Miscellaneous (Remove Nicoderm Patch) 1 ea N/A DAILY@0859 [facility] Stop: 11/25/21 08:58 Last Admin: 10/28/21 08:56 Dose: 1 ea Documented by: Nicotine (Nicotine 21 Mg/24 Hr Tdsy) 21 mg TD QAM [facility] Stop: 11/24/21 12:59 Last Admin: 10/28/21 08:55 Dose: 21 mg Documented by: Nitroglycerin (Nitroglycerin Sl 0.4 Mg/Tab Tab) 0.4 mg SL UD PRN PRN Reason: Chest Pain Stop: 11/23/21 23:52 Nystatin (Nystatin Powder 15gm Btl) 1 appln EXT TID PRN PRN Reason: Skin Irritation Stop: 11/23/21 23:52 Last Admin: 10/27/21 08:03 Dose: 1 appln Documented by: Nystatin (Nystatin Oint 15 Gm Tube) 1 appln EXT BID [facility] Stop: 11/24/21 00:59 Last Admin: 10/28/21 08:57 Dose: 1 appln Documented by: Ondansetron HCl (Ondansetron Inj 2 Mg/Ml 2 Ml Vial) 4 mg IV Q6H PRN PRN Reason: Nausea Stop: 11/23/21 23:52 Ondansetron HCl (Ondansetron 4 Mg Od Tab) 4 mg PO Q8 PRN PRN Reason: Nausea And Vomiting Stop: 11/24/21 01:03 Pantoprazole Sodium (Pantoprazole 40 Mg Tab) 40 mg PO DAILYBB [facility] Stop: 11/24/21 06:29 Last Admin: 10/28/21 05:49 Dose: 40 mg Documented by: Polyethylene Glycol (Polyethylene (Miralax) 17 Gm Pack) [facility] Stop: 11/24/21 08:59 Last Admin: 10/28/21 08:56 Dose: 17 gm Documented by: Potassium Chloride (Potassium Chloride Crtab 20 Meq Tabcr) 20 meq PO BID [facility] Stop: 11/24/21 08:59 Last Admin: 10/28/21 08:54 Dose: 20 meq Documented by: Sennosides (Senna 8.6 Mg Tab) 8.6 mg PO DAILY PRN PRN Reason: Constipation Stop: 11/23/21 23:52 Last Admin: 10/28/21 08:55 Dose: 8.6 mg Documented by: Spironolactone (Spironolactone 25 Mg Tab) 25 mg PO [facility] Stop: 11/24/21 08:59 Last Admin: 10/28/21 08:54 Dose: 25 mg Documented by: Tamsulosin HCl (Tamsulosin Hcl 0.4 Mg Cap) 0.4 mg PO [facility] Stop: 11/24/21 08:59 Last Admin: 10/28/21 08:54 Dose: 0.4 mg Documented by: Tramadol HCl (Tramadol Hcl 50 Mg Tablet) 50 mg PO Q6 PRN PRN Reason: Pain Stop: 11/23/21 23:52 Last Admin: 10/28/21 14:39 Dose: 50 mg Documented by: Umeclidinium Trinity (Umeclidinium Trinity 62.5mcg/Blister 7 Puffs/Inhaler) 1 puffs INH [facility] Stop: 11/24/21 08:59 Last Admin: 10/28/21 08:57 Dose: 1 puffs Documented by: Warfarin Sodium (Warfarin Sod 7.5 Mg Tab) 7.5 mg PO DAILY@1600 [facility] Stop: 11/25/21 15:59 Last Admin: 10/27/21 17:43 Dose: 7.5 mg Documented by: (1) Fluid overload Hypervolemia type: unspecified Qualified Code(s): E87.70 - Fluid overload, unspecified (2) COPD (chronic obstructive pulmonary disease) COPD type: COPD with acute exacerbation Qualified Code(s): J44.1 - Chronic obstructive pulmonary disease with (acute) exacerbation
[2021-10-28] MEDS: WARFARIN SOD 7.5 MG TAB PO SCH (18:12)
[2021-10-28] MEDS: NYSTATIN POWDER 15GM BTL EXT PRN (21:16)
[2021-10-28] MEDS: MELATONIN 3 MG TAB PO PRN (21:39)
[2021-10-28] MEDS: INSULIN GLARGINE SOLOSTAR 100 UNITS/ML 3 ML PEN SC SCH (21:43)
[2021-10-29] MEDS: PANTOprazole 40 MG TAB PO SCH (06:35)
[2021-10-29] MEDS: ALBUT/IPRATROP 3MG/0.5MG NEB 3 ML VIAL INH SCH ×3 (07:22→22:54)
[2021-10-29] MEDS: INSULIN ASPART PER UNIT SC SCH ×4 (08:03→20:41)
[2021-10-29] MEDS: buprenorphine HCL 8 MG SUBL SL SCH ×3 (08:12→20:29)
[2021-10-29] MEDS: traMADol HCL 50 MG TABLET PO PRN ×3 (08:12→20:32)
[2021-10-29] MEDS: ASPIRIN 81 MG ECTAB PO SCH (08:13)
[2021-10-29] MEDS: DOCUSATE SODIUM 100 MG CAP PO SCH ×2 (08:13→20:27)
[2021-10-29] MEDS: DULoxetine HCL 60 MG CAP PO SCH (08:13)
[2021-10-29] MEDS: FERROUS SULFATE 325 MG TAB PO SCH (08:14)
[2021-10-29] MEDS: FAMOTIDINE 20 MG TAB PO SCH (08:14)
[2021-10-29] MEDS: FINASTERIDE 5 MG TAB PO SCH (08:14)
[2021-10-29] MEDS: FUROSEMIDE 40 MG/4 ML VIAL IV SCH ×2 (08:15→16:40)
[2021-10-29] MEDS: FOLIC ACID 1 MG TAB PO SCH (08:15)
[2021-10-29] MEDS: GABAPENTIN 800 MG TAB PO SCH ×3 (08:15→20:28)
[2021-10-29] MEDS: guaiFENesin 600 MG TABCR PO SCH ×2 (08:16→20:28)
[2021-10-29] MEDS: ISOSORBIDE MONO EXTENDED REL 30 MG TABCR PO SCH (08:16)
[2021-10-29] MEDS: METOPROLOL SUCC 25MG EXT REL TAB PO SCH ×2 (08:17→20:27)
[2021-10-29] MEDS: ADVANCED PROBIOTIC 1250 MG CAPSULE PO SCH ×3 (08:17→20:26)
[2021-10-29] MEDS: METHENAMINE HIPPURATE 1 GM TAB PO SCH (08:17)
[2021-10-29] MEDS: MAGNESIUM OXIDE 400 MG TAB PO SCH (08:17)
[2021-10-29] MEDS: SPIRONOLACTONE 25 MG TAB PO SCH (08:18)
[2021-10-29] MEDS: POTASSIUM CHLORIDE CRTAB 20 MEQ TABCR PO SCH ×2 (08:18→20:25)
[2021-10-29] MEDS: POLYETHYLENE (MIRALAX) 17 GM PACK PO SCH (08:18)
[2021-10-29] MEDS: NICOTINE 21 MG/24 HR TDSY TD SCH (08:18)
[2021-10-29] MEDS: TAMSULOSIN HCL 0.4 MG CAP PO SCH (08:19)
[2021-10-29] MEDS: NYSTATIN POWDER 15GM BTL EXT PRN (08:30)
[2021-10-29] MEDS: LORazepam 0.5 MG TAB PO PRN (08:31)
[2021-10-29] MEDS: SENNA 8.6 MG TAB PO PRN (08:31)
[2021-10-29] MEDS: NYSTATIN OINT 15 GM TUBE EXT SCH ×2 (08:32→20:44)
[2021-10-29] MEDS: FLUTICASONE PROPIONATE NA SPR 16 GM BTL SCH (08:33)
[2021-10-29] MEDS: UMECLIDINIUM BROMIDE 62.5MCG/BLISTER 7 PUFFS/INHALER INH SCH (08:33)
[2021-10-29 09:05] LABS: INR 2.6 (0.9-1.1); Prothrombin Time 24.1 Seconds (9.0-12.0)
[2021-10-29] MEDS: methylPREDNISolone 40 MG in SYRINGE 0 ML IV SCH ×2 (09:43→20:28)
[2021-10-29] MEDS: ATORVASTATIN 40 MG TAB PO SCH (12:09)
[2021-10-29] MEDS: CYCLOBENZAPRINE HCL 10 MG TAB PO PRN (13:47)
--- NOTE | 2021-10-29 15:24 | Cardiology Progress Note ---
Date of Service October 29, 2021 Assessment & Plan (1) RHF (right heart failure): Plan: (1) RHF (right heart failure): Plan: Patient source is having discontinued his diuretics for about a week and half, citing dysfunction with his Lloyd catheter. Continue furosemide 40 milligrams IV twice daily. Repeat BMP 10/30/20. (2) COVID-19: Plan: At baseline, patient were supplemental oxygen at bedtime. He is currently on oxygen , 4 liters nasal cannula . Continue. No cough. Plan: DVT prophylaxis: Continue Coumadin, INR 2.6, on chronic Coumadin due to histor y of recurrent pulmonary embolism. Admission and Anticipated Discharge Date Admission Date: October 24, 2021 Subjective Pt seen in follow up this am. SR in the 60-70s noted on telemetry. Notes he is adhering to fluid restriction , however, 7 drinking containers noted on his bedside table and trash can. Notes generalized illness. Pulse ox 95 % on 4 L/m [place] oxygen. Physical Exam Constitutional: + morbidly obese Respiratory: mildly reduced BS at the bases Cardiovascular: Rate/Rhythm: regular rate Extremities: + edema (1-2+ edema, improved) Neurologic: PERRL, EOMI, accommodation nl, no face palsy, no dysarthria Genitourinary: Lloyd catheter is in place draining clear yellow urine Results & Data ([facility]) Vital Signs (Past 12 Hours) Vital Signs Temp Pulse Pulse Resp BP Pulse Ox 10/29/21 11:45 36.7 C 64 14 124/74 95 10/29/21 08:09 37 C 65 14 114/71 93 10/29/21 08:06 36.7 C 61 22 114/72 94 10/29/21 07:54 60 10/29/21 04:11 36.7 C 67 18 124/71 95 Laboratory Results Coagulation 10/29/21 Range/Units 08:27 PT 24.1 H (9.0-12.0) Seconds INR 2.6 Intake and Output 10/29/21 10/29/21 10/29/21 06:59 14:59 22:59 Intake Total 790 / 790 Output Total 3650 / 3650 Balance -2860 / -2860 Intake: Oral 790 / 790 Output: Urine Amount (Catheter) 3650 / 3650 Lloyd/Indwelling 3650 / 3650 Other: Weight 185.9 kg Patient Weight 10/30/21 06:59 Weight 185.9 kg
[2021-10-29] MEDS: WARFARIN SOD 7.5 MG TAB PO SCH (16:39)
--- NOTE | 2021-10-29 18:10 | Hospitalist Progress Note ---
Date of Service October 29, 2021 Assessment & Plan (1) Acute right-sided congestive heart failure: Plan: Acute on chronic R heart failure with preserved EF Has not been taking his Lasix for the last 1 week or so Presented with shortness of breath but has not been require any extra oxygen to maintain saturation Likely has acute right-sided congestive heart failure with fluid overload Chest x-ray did not show any overt pulmonary edema and the BNP was within normal range Has been getting Lasix intravenously and making out a lot of urine He is feeling better already Appreciate cardiology input and recommendation to continue current dose of fu rosemide Clinically much better and plan to discharge home in a day or 2 cardiology on board Continue Lasix 40mg BID IV Continue monitor BMP Chronic pain syndrome Has been on Suboxone We will continue that Has been taking Ultram 50 mg every 6 hourly---PDMP is not showing any prescription since July of last year and it was a started as part of the medication list of [facility]. He always asks for narcotic pain medications or wants to have increased dose of Ultram 200 mg every 6 hours-which were not given The PCP did discuss with his pain therapist Dr. Harsha Valencia #[phone] and was told that he can take narcotic pain medication when he goes to the rehab center and after discharge he will prescribe Suboxone but he did not want to give any narcotics or did not suggest any doses. The PCP declined to give any narcotics given the history of abuse. Generalized weakness PT and OT evaluation He wants to go to rehab PT and OT appreciated-recommended rehab Fall precaution (2) Fluid overload: Plan: As above (3) COVID-19: Plan: Noted to be COVID-19 virus positive Has had 2 doses of vaccine All of the family members have COVID-19 virus infection Clinically asymptomatic and has not been require any extra oxygen to maintain saturation Does not qualify for any intervention for COVID-19 virus infection No symptoms secondary to COVID-19 virus infection (4) Chronic respiratory failure: Plan: History of chronic respiratory failure secondary to COPD Has been on home oxygen with 4 L to maintain saturation Still requiring 4 L in the hospital-remains stable (5) COPD (chronic obstructive pulmonary disease): Plan: No signs and or symptoms of exacerbation Has minimal wheezing anteriorly-in part due to transmitted sounds from the trachea We will give [id number] inhalation of albuterol Seems to have acute bronchitis and may have mild exacerbation of COPD Will give a small dose of intravenous Solu-Medrol and also nebulized bronchodilator Likely has a mild exacerbation-we will increase Solu-Medrol to 40 mg twice daily for a day or 2 and go back to oral prednisone thereafter Has been getting nebulized bronchodilator every 8 hours routinely Clinically better (6) Pickwickian syndrome: (7) BPH (benign prostatic hyperplasia): Plan: History of prostrate hypertrophy and has a indwelling Lloyd catheter History of recurrent catheter associated UTI Catheter was out for about 1 week and since then he has not been taking his Lasix Successfully introduced catheter and he does not require any urology consult as of today We will continue intravenous Lasix and give catheter on discharge (8) Seizure-like activity: Plan: Continue current medications (9) History of pulmonary embolism: Plan: Has been on Coumadin INR is 1.8-we will continue (10) 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: Plan: Continue insulin SSI DVT prophylaxis On Coumadin CODE STATUS Full Admission and Anticipated Discharge Date Admission Date: October 24, 2021 Subjective Pt was seen and examined for follow up of CHF and COVID 19 Lying in bed with no acute distress Pt said that he wants to go to rehab because his does not able to care for her because she has COVID 19 Denies any chest pain, palpitation, dizziness and SOB Review of Systems Review of Systems: All systems reviewed & are unremarkable except as noted in Subjective Physical Exam Physical Exam: General- No acute distress Head- atraumatic ENT- oropharynx clear Neck- supple, no JVD Lungs- clear to auscultation Heart- regular rhythm; no murmur Abdomen- normal bowel sounds, soft, nontender Extremities- no calf tenderness, +edema Neuro- alert, oriented x 3; PERRL, EOMI; no facial palsy; no dysarthria Skin- warm & dry Results & Data Results & Data ([facility]) Vital Signs (Past 12 Hours) Vital Signs Temp Pulse Pulse Resp BP BP Pulse Ox 10/29/21 17:33 70 10/29/21 17:14 37.2 C 72 14 127/78 93 10/29/21 16:43 36.6 C 72 18 129/66 96 10/29/21 15:22 68 18 94 10/29/21 11:45 36.7 C 64 14 124/74 95 10/29/21 08:09 37 C 65 14 114/71 93 10/29/21 08:06 36.7 C 61 22 114/72 94 10/29/21 07:54 60 (1) COPD (chronic obstructive pulmonary disease) COPD type: COPD with acute exacerbation Qualified Code(s): J44.1 - Chronic obstructive pulmonary disease with (acute) exacerbation (2) Fluid overload Hypervolemia type: unspecified Qualified Code(s): E87.70 - Fluid overload, unspecified
[2021-10-29] MEDS: MELATONIN 3 MG TAB PO PRN (20:25)
[2021-10-29] MEDS: INSULIN GLARGINE SOLOSTAR 100 UNITS/ML 3 ML PEN SC SCH (20:41)
[2021-10-29] MEDS: ACETAMINOPHEN 1000 MG/100 ML IV IV PRN (22:58)
[2021-10-30] MEDS: PANTOprazole 40 MG TAB PO SCH (06:21)
[2021-10-30 08:24] LABS: INR 3.5 (0.9-1.1); Prothrombin Time 32.5 Seconds (9.0-12.0)
[2021-10-30] MEDS: INSULIN ASPART PER UNIT SC SCH ×4 (08:35→21:30)
[2021-10-30] MEDS: buprenorphine HCL 8 MG SUBL SL SCH ×3 (08:39→21:15)
[2021-10-30] MEDS: LORazepam 0.5 MG TAB PO PRN ×2 (08:39→17:06)
[2021-10-30] MEDS: traMADol HCL 50 MG TABLET PO PRN ×3 (08:39→21:21)
[2021-10-30] MEDS: ACETAMINOPHEN 1000 MG/100 ML IV IV PRN (08:39)
[2021-10-30] MEDS: FUROSEMIDE 40 MG/4 ML VIAL IV SCH ×2 (08:40→17:07)
[2021-10-30] MEDS: TAMSULOSIN HCL 0.4 MG CAP PO SCH (08:41)
[2021-10-30] MEDS: SPIRONOLACTONE 25 MG TAB PO SCH (08:41)
[2021-10-30] MEDS: NICOTINE 21 MG/24 HR TDSY TD SCH (08:42)
[2021-10-30] MEDS: GABAPENTIN 800 MG TAB PO SCH ×3 (08:42→21:16)
[2021-10-30] MEDS: guaiFENesin 600 MG TABCR PO SCH ×2 (08:42→21:16)
[2021-10-30] MEDS: POLYETHYLENE (MIRALAX) 17 GM PACK PO SCH (08:42)
[2021-10-30] MEDS: ASPIRIN 81 MG ECTAB PO SCH (08:43)
[2021-10-30] MEDS: METHENAMINE HIPPURATE 1 GM TAB PO SCH (08:43)
[2021-10-30] MEDS: POTASSIUM CHLORIDE CRTAB 20 MEQ TABCR PO SCH ×2 (08:43→21:20)
[2021-10-30] MEDS: DOCUSATE SODIUM 100 MG CAP PO SCH ×2 (08:43→21:15)
[2021-10-30] MEDS: FAMOTIDINE 20 MG TAB PO SCH (08:43)
[2021-10-30] MEDS: FOLIC ACID 1 MG TAB PO SCH (08:43)
[2021-10-30] MEDS: MAGNESIUM OXIDE 400 MG TAB PO SCH (08:43)
[2021-10-30] MEDS: FINASTERIDE 5 MG TAB PO SCH (08:43)
[2021-10-30] MEDS: FERROUS SULFATE 325 MG TAB PO SCH (08:43)
[2021-10-30] MEDS: METOPROLOL SUCC 25MG EXT REL TAB PO SCH ×2 (08:44→21:18)
[2021-10-30] MEDS: ISOSORBIDE MONO EXTENDED REL 30 MG TABCR PO SCH (08:44)
[2021-10-30] MEDS: UMECLIDINIUM BROMIDE 62.5MCG/BLISTER 7 PUFFS/INHALER INH SCH (08:44)
[2021-10-30] MEDS: ADVANCED PROBIOTIC 1250 MG CAPSULE PO SCH ×3 (08:44→21:17)
[2021-10-30] MEDS: SENNA 8.6 MG TAB PO PRN (08:44)
[2021-10-30 08:45] LABS: BUN Creatinine Ratio 29.9 (10-20); Creatinine Clr Calc Pharmacy 168.8 ml/min; Est GFR (African American) 115.8 ml/min; Est GFR (Non-African American) 99.9 ml/min; Potassium 4.4 mmol/L (3.5-5.1)
[2021-10-30] MEDS: FLUTICASONE PROPIONATE NA SPR 16 GM BTL SCH (08:45)
[2021-10-30] MEDS: DULoxetine HCL 60 MG CAP PO SCH (08:46)
[2021-10-30] MEDS: NYSTATIN OINT 15 GM TUBE EXT SCH ×2 (08:46→21:20)
[2021-10-30] MEDS: methylPREDNISolone 40 MG in SYRINGE 0 ML IV SCH ×2 (08:46→21:17)
[2021-10-30] MEDS ORDERED: ALBUT/IPRATROP 3MG/0.5MG NEB 3 ML VIAL INH PRN (10:41)
[2021-10-30] MEDS: ATORVASTATIN 40 MG TAB PO SCH (12:01)
[2021-10-30] MEDS: ALBUT/IPRATROP 3MG/0.5MG NEB 3 ML VIAL INH SCH (12:36)
--- NOTE | 2021-10-30 12:50 | Cardiology Progress Note ---
Date of Service October 30, 2021 Assessment & Plan (1) RHF (right heart failure): Plan: (1) RHF (right heart failure): Plan: Continue furosemide 40 milligrams IV twice daily. (2) COVID-19: Plan: At baseline, patient were supplemental oxygen at bedtime. He is currently on oxygen , 4 liters nasal cannula . Continue. No cough. Plan: DVT prophylaxis: Continue Coumadin, INR 3.5. He is on Coumadin for history of past recurrent pulmonary embolism. Hold Coumadin for INR of 3.5. Admission and Anticipated Discharge Date Admission Date: October 24, 2021 Subjective Patient seen in cardiology follow-up. Still with generalized flu-like symptoms, no temperature this morning. Objective fever this morning. Continues to diurese his current dose of furosemide 40 milligrams twice daily. Physical Exam Physical Exam: Temp Pulse Resp BP Pulse Ox 36.6 C 65 19 143/75 H 96 10/30/21 11:53 10/30/21 11:53 10/30/21 11:53 10/30/21 11:53 10/30/21 11:53 Constitutional: + morbidly obese Respiratory: no respiratory distress, no labored breathing, no cough and not tachypneic Cardiovascular: Rate/Rhythm: regular rate and regular rhythm Extremities: + edema (1-2+ edema, improved) Neurologic: PERRL, EOMI, accommodation nl, no face palsy, no dysarthria Results & Data ([facility]) Vital Signs (Past 12 Hours) Vital Signs Temp Pulse Pulse Resp BP Pulse Ox 10/30/21 11:53 36.6 C 65 19 143/75 H 96 10/30/21 10:12 64 10/30/21 08:03 36.9 C 67 19 150/87 H 90 10/30/21 05:48 63
--- NOTE | 2021-10-30 19:24 | Hospitalist Progress Note ---
Date of Service October 30, 2021 Assessment & Plan (1) Acute right-sided congestive heart failure: Plan: Acute on chronic R heart failure with preserved EF Has not been taking his Lasix for the last 1 week or so Presented with shortness of breath but has not been require any extra oxygen to maintain saturation Likely has acute right-sided congestive heart failure with fluid overload Chest x-ray did not show any overt pulmonary edema and the BNP was within normal range Has been getting Lasix intravenously and making out a lot of urine He is feeling better already Appreciate cardiology input and recommendation to continue current dose of f urosemide cardiology on board Continue Lasix 40mg BID IV Continue monitor BMP Chronic pain syndrome Has been on Suboxone We will continue that Has been taking Ultram 50 mg every 6 hourly---PDMP is not showing any prescription since July of last year and it was a started as part of the medication list of [facility]. He always asks for narcotic pain medications or wants to have increased dose of Ultram 200 mg every 6 hours-which were not given The PCP did discuss with his pain therapist Dr. Harsha Valencia #[phone] and was told that he can take narcotic pain medication when he goes to the rehab center and after discharge he will prescribe Suboxone but he did not want to give any narcotics or did not suggest any doses. The PCP declined to give any narcotics given the history of abuse. Generalized weakness PT and OT evaluation He wants to go to rehab PT and OT appreciated-recommended rehab Fall precaution (2) Fluid overload: Plan: As above (3) COVID-19: Plan: Noted to be COVID-19 virus positive Has had 2 doses of vaccine All of the family members have COVID-19 virus infection Clinically asymptomatic and has not been require any extra oxygen to maintain saturation Does not qualify for any intervention for COVID-19 virus infection No symptoms secondary to COVID-19 virus infection (4) Chronic respiratory failure: Plan: History of chronic respiratory failure secondary to COPD Has been on home oxygen with 4 L to maintain saturation Still requiring 4 L in the hospital-remains stable (5) COPD (chronic obstructive pulmonary disease): Plan: No signs and or symptoms of exacerbation Has minimal wheezing anteriorly-in part due to transmitted sounds from the trachea We will give [id number] inhalation of albuterol Seems to have acute bronchitis and may have mild exacerbation of COPD Will give a small dose of intravenous Solu-Medrol and also nebulized bronchodilator Likely has a mild exacerbation-we will increase Solu-Medrol to 40 mg twice daily for a day or 2 and go back to oral prednisone thereafter Has been getting nebulized bronchodilator every 8 hours routinely Clinically better (6) Pickwickian syndrome: (7) BPH (benign prostatic hyperplasia): Plan: History of prostrate hypertrophy and has a indwelling Lloyd catheter History of recurrent catheter associated UTI Catheter was out for about 1 week and since then he has not been taking his Lasix Successfully introduced catheter and he does not require any urology consult as of today We will continue intravenous Lasix and give catheter on discharge (8) Seizure-like activity: Plan: Continue current medications (9) History of pulmonary embolism: Plan: Will hold Coumadin since INR 3.5 today Continue monitor PT/INR (10) 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: Plan: Continue insulin SSI DVT prophylaxis Coumadin with INR 3.5 CODE STATUS Full Admission and Anticipated Discharge Date Admission Date: October 24, 2021 Subjective Pt was seen and examined with SOB due to COVID 19 and CHF Lying in bed with no acute distress Pt continues requiring 4L NC Denies any chest pain, palpitation, dizziness and SOB Review of Systems Review of Systems: All systems reviewed & are unremarkable except as noted in Subjective Physical Exam Physical Exam: General- No acute distress Head- atraumatic ENT- oropharynx clear Neck- supple, no JVD Lungs- clear to auscultation Heart- regular rhythm; no murmur Abdomen- normal bowel sounds, soft, nontender Extremities- no calf tenderness, +edema Neuro- alert, oriented x 3; PERRL, EOMI; no facial palsy; no dysarthria Skin- warm & dry Results & Data Results & Data ([facility]) Vital Signs (Past 12 Hours) Vital Signs Temp Pulse Pulse Resp BP Pulse Ox 10/30/21 16:49 36.5 C 64 20 129/78 97 10/30/21 11:53 36.6 C 65 19 143/75 H 96 10/30/21 10:12 64 10/30/21 08:03 36.9 C 67 19 150/87 H 90 (1) Fluid overload Hypervolemia type: unspecified Qualified Code(s): E87.70 - Fluid overload, unspecified (2) COPD (chronic obstructive pulmonary disease) COPD type: COPD with acute exacerbation Qualified Code(s): J44.1 - Chronic obstructive pulmonary disease with (acute) exacerbation
[2021-10-30] MEDS: MELATONIN 3 MG TAB PO PRN (21:20)
[2021-10-30] MEDS: CYCLOBENZAPRINE HCL 10 MG TAB PO PRN (21:23)
[2021-10-30] MEDS: INSULIN GLARGINE SOLOSTAR 100 UNITS/ML 3 ML PEN SC SCH (21:30)
[2021-10-31] MEDS: PANTOprazole 40 MG TAB PO SCH (06:25)
[2021-10-31 07:54] LABS: INR 2.8 (0.9-1.1); Prothrombin Time 26.5 Seconds (9.0-12.0)
[2021-10-31] MEDS: INSULIN ASPART PER UNIT SC SCH ×4 (08:07→21:19)
[2021-10-31 08:26] LABS: BUN Creatinine Ratio 34.5 (10-20); Calcium 9.6 mg/dl (8.5-10.1); Creatinine Clr Calc Pharmacy 168.3 ml/min; Est GFR (African American) 115.8 ml/min; Est GFR (Non-African American) 99.9 ml/min; Potassium 4.8 mmol/L (3.5-5.1)
[2021-10-31] MEDS: ACETAMINOPHEN 1000 MG/100 ML IV IV PRN ×2 (08:26→16:04)
[2021-10-31] MEDS: ADVANCED PROBIOTIC 1250 MG CAPSULE PO SCH ×3 (08:31→21:17)
[2021-10-31] MEDS: DOCUSATE SODIUM 100 MG CAP PO SCH ×2 (08:31→21:17)
[2021-10-31] MEDS: guaiFENesin 600 MG TABCR PO SCH ×2 (08:31→21:20)
[2021-10-31] MEDS: SENNA 8.6 MG TAB PO PRN (08:32)
[2021-10-31] MEDS: ASPIRIN 81 MG ECTAB PO SCH (08:32)
[2021-10-31] MEDS: MAGNESIUM OXIDE 400 MG TAB PO SCH (08:32)
[2021-10-31] MEDS: METOPROLOL SUCC 25MG EXT REL TAB PO SCH ×2 (08:32→21:18)
[2021-10-31] MEDS: POTASSIUM CHLORIDE CRTAB 20 MEQ TABCR PO SCH ×2 (08:32→21:16)
[2021-10-31] MEDS: FAMOTIDINE 20 MG TAB PO SCH (08:33)
[2021-10-31] MEDS: FINASTERIDE 5 MG TAB PO SCH (08:33)
[2021-10-31] MEDS: GABAPENTIN 800 MG TAB PO SCH ×3 (08:33→21:17)
[2021-10-31] MEDS: TAMSULOSIN HCL 0.4 MG CAP PO SCH (08:33)
[2021-10-31] MEDS: ISOSORBIDE MONO EXTENDED REL 30 MG TABCR PO SCH (08:34)
[2021-10-31] MEDS: FOLIC ACID 1 MG TAB PO SCH (08:34)
[2021-10-31] MEDS: DULoxetine HCL 60 MG CAP PO SCH (08:34)
[2021-10-31] MEDS: FERROUS SULFATE 325 MG TAB PO SCH (08:34)
[2021-10-31] MEDS: SPIRONOLACTONE 25 MG TAB PO SCH (08:34)
[2021-10-31] MEDS: METHENAMINE HIPPURATE 1 GM TAB PO SCH (08:35)
[2021-10-31] MEDS: FUROSEMIDE 40 MG/4 ML VIAL IV SCH ×2 (08:35→17:16)
[2021-10-31] MEDS: NICOTINE 21 MG/24 HR TDSY TD SCH (08:36)
[2021-10-31] MEDS: buprenorphine HCL 8 MG SUBL SL SCH ×3 (08:37→21:18)
[2021-10-31] MEDS: LORazepam 0.5 MG TAB PO PRN ×2 (08:37→21:18)
[2021-10-31] MEDS: NYSTATIN OINT 15 GM TUBE EXT SCH ×2 (08:47→21:20)
[2021-10-31] MEDS: FLUTICASONE PROPIONATE NA SPR 16 GM BTL SCH (08:47)
[2021-10-31] MEDS: POLYETHYLENE (MIRALAX) 17 GM PACK PO SCH (08:48)
[2021-10-31] MEDS: UMECLIDINIUM BROMIDE 62.5MCG/BLISTER 7 PUFFS/INHALER INH SCH (09:17)
[2021-10-31] MEDS: traMADol HCL 50 MG TABLET PO PRN ×3 (09:17→22:47)
[2021-10-31] MEDS: methylPREDNISolone 40 MG in SYRINGE 0 ML IV SCH ×2 (09:17→21:18)
[2021-10-31] MEDS: CYCLOBENZAPRINE HCL 10 MG TAB PO PRN ×2 (11:03→21:18)
[2021-10-31] MEDS: ATORVASTATIN 40 MG TAB PO SCH (11:03)
--- NOTE | 2021-10-31 12:51 | Cardiology Progress Note ---
Date of Service October 31, 2021 Assessment & Plan (1) RHF (right heart failure): Plan: (1) RHF (right heart failure): Plan: Continue furosemide 40 milligrams IV twice daily. (2) COVID-19: Plan: At baseline, patient were supplemental oxygen at bedtime. He is currently on oxygen , 4 liters nasal cannula . Continue. No cough. Plan: DVT prophylaxis: Continue Coumadin, INR 2.8. He is on Coumadin for history of past recurrent pulmonary - Will defer timing of resuming Coumadin to hospitalist service. Admission and Anticipated Discharge Date Admission Date: October 24, 2021 Subjective Patient seen. Still swollen. Feels vague viral symptoms. Continues with vigorous urine output. Telemetry reveals sinus rhythm in the 60s to 80s. Physical Exam Constitutional: + morbidly obese Respiratory: Mildly reduced breath sounds at bases Cardiovascular: Rate/Rhythm: regular rate and regular rhythm Extremities: + edema ( 2+ edema) Genitourinary: Lloyd catheter in place draining clear yellow urine Results & Data ([facility]) Vital Signs (Past 12 Hours) Vital Signs Temp Pulse Pulse Resp BP Pulse Ox 10/31/21 11:07 36.5 C 65 16 122/77 94 10/31/21 08:28 36.8 C 61 16 116/71 95 10/31/21 06:45 54 L 10/31/21 04:00 57 L
[2021-10-31] MEDS ORDERED: WARFARIN SOD 3 MG TAB PO ONE (20:30)
[2021-10-31] MEDS: MELATONIN 3 MG TAB PO PRN (21:16)
[2021-10-31] MEDS: INSULIN GLARGINE SOLOSTAR 100 UNITS/ML 3 ML PEN SC SCH (21:19)
--- NOTE | 2021-10-31 23:46 | Hospitalist Progress Note ---
Date of Service October 31, 2021 Assessment & Plan (1) Acute right-sided congestive heart failure: Plan: Acute on chronic R heart failure with preserved EF Has not been taking his Lasix for the last 1 week or so Presented with shortness of breath but has not been require any extra oxygen to maintain saturation Likely has acute right-sided congestive heart failure with fluid overload Chest x-ray did not show any overt pulmonary edema and the BNP was within normal range Has been getting Lasix intravenously and making out a lot of urine He is feeling better already Appreciate cardiology input and recommendation to continue current dose of f urosemide cardiology on board Continue Lasix 40mg BID IV Continue monitor BMP Chronic pain syndrome Has been on Suboxone We will continue that Has been taking Ultram 50 mg every 6 hourly---PDMP is not showing any prescription since July of last year and it was a started as part of the medication list of [facility]. He always asks for narcotic pain medications or wants to have increased dose of Ultram 200 mg every 6 hours-which were not given The PCP did discuss with his pain therapist Dr. Harsha Valencia #[phone] and was told that he can take narcotic pain medication when he goes to the rehab center and after discharge he will prescribe Suboxone but he did not want to give any narcotics or did not suggest any doses. The PCP declined to give any narcotics given the history of abuse. Generalized weakness PT and OT evaluation He wants to go to rehab PT and OT appreciated-recommended rehab Fall precaution (2) Fluid overload: Plan: As above (3) COVID-19: Plan: Noted to be COVID-19 virus positive Has had 2 doses of vaccine All of the family members have COVID-19 virus infection Clinically asymptomatic and has not been require any extra oxygen to maintain saturation Does not qualify for any intervention for COVID-19 virus infection No symptoms secondary to COVID-19 virus infection (4) Chronic respiratory failure: Plan: History of chronic respiratory failure secondary to COPD Has been on home oxygen with 4 L to maintain saturation Still requiring 4 L in the hospital-remains stable (5) COPD (chronic obstructive pulmonary disease): Plan: No signs and or symptoms of exacerbation Has minimal wheezing anteriorly-in part due to transmitted sounds from the trachea We will give [id number] inhalation of albuterol Seems to have acute bronchitis and may have mild exacerbation of COPD Will give a small dose of intravenous Solu-Medrol and also nebulized bronchodilator Likely has a mild exacerbation-we will increase Solu-Medrol to 40 mg twice daily for a day or 2 and go back to oral prednisone thereafter Has been getting nebulized bronchodilator every 8 hours routinely Clinically better (6) Pickwickian syndrome: (7) BPH (benign prostatic hyperplasia): Plan: History of prostrate hypertrophy and has a indwelling Lloyd catheter History of recurrent catheter associated UTI Catheter was out for about 1 week and since then he has not been taking his Lasix Successfully introduced catheter and he does not require any urology consult as of today We will continue intravenous Lasix and give catheter on discharge (8) Seizure-like activity: Plan: Continue current medications (9) History of pulmonary embolism: Plan: Coumadin resumed since INR 2.8 today Continue monitor PT/INR (10) 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: Plan: Continue insulin SSI DVT prophylaxis Coumadin with INR 2.8 CODE STATUS Full Admission and Anticipated Discharge Date Admission Date: October 24, 2021 Subjective Pt was seen and examined with SOB due to COVID 19 and CHF Lying in bed with no acute distress His leg continues to be swelling He said that he does not feel good today Denies any chest pain, palpitation, dizziness and and fever Review of Systems Review of Systems: All systems reviewed & are unremarkable except as noted in Subjective Physical Exam Physical Exam: General- No acute distress Head- atraumatic ENT- oropharynx clear Neck- supple, no JVD Lungs- clear to auscultation Heart- regular rhythm; no murmur Abdomen- normal bowel sounds, soft, nontender Extremities- no calf tenderness, +edema Neuro- alert, oriented x 3; PERRL, EOMI; no facial palsy; no dysarthria Skin- warm & dry Results & Data Results & Data ([facility]) Vital Signs (Past 12 Hours) Vital Signs Temp Pulse Pulse Resp BP BP Pulse Ox 10/31/21 22:49 36.8 C 61 18 113/69 94 10/31/21 20:04 36.6 C 60 19 112/67 95 10/31/21 16:00 37.1 C 65 21 106/70 93 10/31/21 14:15 57 L (1) COPD (chronic obstructive pulmonary disease) COPD type: COPD with acute exacerbation Qualified Code(s): J44.1 - Chronic obstructive pulmonary disease with (acute) exacerbation (2) Fluid overload Hypervolemia type: unspecified Qualified Code(s): E87.70 - Fluid overload, unspecified
[2021-11-01] MEDS: ACETAMINOPHEN 1000 MG/100 ML IV IV PRN ×3 (00:25→17:10)
[2021-11-01] MEDS: PANTOprazole 40 MG TAB PO SCH (07:14)
[2021-11-01] MEDS: INSULIN ASPART PER UNIT SC SCH ×4 (08:11→21:10)
[2021-11-01] MEDS: POLYETHYLENE (MIRALAX) 17 GM PACK PO SCH (08:41)
[2021-11-01] MEDS: METOPROLOL SUCC 25MG EXT REL TAB PO SCH ×2 (08:43→21:02)
[2021-11-01] MEDS: LORazepam 0.5 MG TAB PO PRN ×2 (08:43→17:10)
[2021-11-01] MEDS: CYCLOBENZAPRINE HCL 10 MG TAB PO PRN ×2 (08:43→21:06)
[2021-11-01] MEDS: TAMSULOSIN HCL 0.4 MG CAP PO SCH (08:44)
[2021-11-01] MEDS: traMADol HCL 50 MG TABLET PO PRN ×3 (08:44→21:06)
[2021-11-01] MEDS: DULoxetine HCL 60 MG CAP PO SCH (08:44)
[2021-11-01] MEDS: FERROUS SULFATE 325 MG TAB PO SCH (08:45)
[2021-11-01] MEDS: MAGNESIUM OXIDE 400 MG TAB PO SCH (08:45)
[2021-11-01] MEDS: ISOSORBIDE MONO EXTENDED REL 30 MG TABCR PO SCH (08:45)
[2021-11-01] MEDS: FINASTERIDE 5 MG TAB PO SCH (08:45)
[2021-11-01] MEDS: ADVANCED PROBIOTIC 1250 MG CAPSULE PO SCH ×3 (08:46→21:01)
[2021-11-01] MEDS: guaiFENesin 600 MG TABCR PO SCH ×2 (08:46→21:00)
[2021-11-01] MEDS: POTASSIUM CHLORIDE CRTAB 20 MEQ TABCR PO SCH ×2 (08:46→21:05)
[2021-11-01] MEDS: FAMOTIDINE 20 MG TAB PO SCH (08:46)
[2021-11-01] MEDS: NICOTINE 21 MG/24 HR TDSY TD SCH (08:47)
[2021-11-01] MEDS: GABAPENTIN 800 MG TAB PO SCH ×3 (08:47→20:58)
[2021-11-01] MEDS: METHENAMINE HIPPURATE 1 GM TAB PO SCH (08:48)
[2021-11-01] MEDS: SPIRONOLACTONE 25 MG TAB PO SCH (08:48)
[2021-11-01] MEDS: SENNA 8.6 MG TAB PO PRN (08:48)
[2021-11-01] MEDS: methylPREDNISolone 40 MG in SYRINGE 0 ML IV SCH ×2 (08:49→21:10)
[2021-11-01] MEDS: FOLIC ACID 1 MG TAB PO SCH (08:49)
[2021-11-01] MEDS: ASPIRIN 81 MG ECTAB PO SCH (08:49)
[2021-11-01] MEDS: DOCUSATE SODIUM 100 MG CAP PO SCH ×2 (08:49→20:58)
[2021-11-01] MEDS: FUROSEMIDE 40 MG/4 ML VIAL IV SCH ×2 (08:49→17:12)
[2021-11-01] MEDS: buprenorphine HCL 8 MG SUBL SL SCH ×3 (08:50→20:58)
[2021-11-01] MEDS: FLUTICASONE PROPIONATE NA SPR 16 GM BTL SCH (08:50)
[2021-11-01] MEDS: NYSTATIN POWDER 15GM BTL EXT PRN ×2 (08:50→08:54)
[2021-11-01] MEDS: UMECLIDINIUM BROMIDE 62.5MCG/BLISTER 7 PUFFS/INHALER INH SCH (08:54)
[2021-11-01] MEDS: NYSTATIN OINT 15 GM TUBE EXT SCH ×2 (08:55→21:02)
[2021-11-01 09:54] LABS: BUN Creatinine Ratio 38.8 (10-20); Calcium 9.6 mg/dl (8.5-10.1); Creatinine Clr Calc Pharmacy 172.2 ml/min; Est GFR (African American) 116.9 ml/min; Est GFR (Non-African American) 100.9 ml/min; Potassium 4.2 mmol/L (3.5-5.1)
[2021-11-01 09:57] LABS: INR 1.7 (0.9-1.1); Prothrombin Time 16.6 Seconds (9.0-12.0)
[2021-11-01] MEDS: ATORVASTATIN 40 MG TAB PO SCH (12:42)
[2021-11-01] MEDS ORDERED: WARFARIN SOD 3 MG TAB PO SCH (16:00)
[2021-11-01] MEDS: INSULIN GLARGINE SOLOSTAR 100 UNITS/ML 3 ML PEN SC SCH (21:01)
[2021-11-01] MEDS: MELATONIN 3 MG TAB PO PRN (21:06)
[2021-11-01] MEDS ORDERED: ACETAMINOPHEN 1,000 MG/100 ML VIAL IV PRN (23:14)
[2021-11-01] MEDS ORDERED: ACETAMINOPHEN 500 MG TAB PO PRN (23:19)
--- NOTE | 2021-11-01 23:50 | Hospitalist Progress Note ---
Date of Service November 01, 2021 Assessment & Plan (1) Acute right-sided congestive heart failure: Plan: Acute on chronic R heart failure with preserved EF Has not been taking his Lasix for the last 1 week or so Presented with shortness of breath but has not been require any extra oxygen to maintain saturation Likely has acute right-sided congestive heart failure with fluid overload Chest x-ray did not show any overt pulmonary edema and the BNP was within normal range Has been getting Lasix intravenously and making out a lot of urine He is feeling better already Appreciate cardiology input and recommendation to continue current dose of f urosemide cardiology on board Continue Lasix 40mg BID IV Continue monitor BMP Okay from cardiology standpoint to transfer to medical Chronic pain syndrome Has been on Suboxone We will continue that Has been taking Ultram 50 mg every 6 hourly---PDMP is not showing any prescription since July of last year and it was a started as part of the medication list of [facility]. He always asks for narcotic pain medications or wants to have increased dose of Ultram 200 mg every 6 hours-which were not given The PCP did discuss with his pain therapist Dr. Harsha Valencia #[phone] and was told that he can take narcotic pain medication when he goes to the rehab center and after discharge he will prescribe Suboxone but he did not want to give any narcotics or did not suggest any doses. The PCP declined to give any narcotics given the history of abuse. Generalized weakness PT and OT evaluation He wants to go to rehab PT and OT appreciated-recommended rehab Fall precaution (2) Fluid overload: Plan: As above (3) COVID-19: Plan: Noted to be COVID-19 virus positive Has had 2 doses of vaccine All of the family members have COVID-19 virus infection Clinically asymptomatic and has not been require any extra oxygen to maintain saturation Does not qualify for any intervention for COVID-19 virus infection No symptoms secondary to COVID-19 virus infection (4) Chronic respiratory failure: Plan: History of chronic respiratory failure secondary to COPD Has been on home oxygen with 4 L to maintain saturation Still requiring 4 L in the hospital-remains stable (5) COPD (chronic obstructive pulmonary disease): Plan: No signs and or symptoms of exacerbation Has minimal wheezing anteriorly-in part due to transmitted sounds from the trachea We will give [id number] inhalation of albuterol Seems to have acute bronchitis and may have mild exacerbation of COPD Will give a small dose of intravenous Solu-Medrol and also nebulized bronchodilator Likely has a mild exacerbation-we will increase Solu-Medrol to 40 mg twice daily for a day or 2 and go back to oral prednisone thereafter Has been getting nebulized bronchodilator every 8 hours routinely Clinically better (6) Pickwickian syndrome: (7) BPH (benign prostatic hyperplasia): Plan: History of prostrate hypertrophy and has a indwelling Lloyd catheter History of recurrent catheter associated UTI Catheter was out for about 1 week and since then he has not been taking his Lasix Successfully introduced catheter and he does not require any urology consult as of today We will continue intravenous Lasix and give catheter on discharge (8) Seizure-like activity: Plan: Continue current medications (9) History of pulmonary embolism: Plan: Coumadin resumed since INR 1.7 today Continue monitor PT/INR (10) 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: Plan: Continue insulin SSI DVT prophylaxis Coumadin with INR 1.7 CODE STATUS Full Admission and Anticipated Discharge Date Admission Date: October 24, 2021 Subjective Pt was seen and examined with SOB due to COVID 19 and CHF Lying in bed with no acute distress He said that his nose feels a little stuffy today Denies any chest pain, palpitation, dizziness and and fever Review of Systems Review of Systems: All systems reviewed & are unremarkable except as noted in Subjective Physical Exam Physical Exam: General- No acute distress Head- atraumatic ENT- oropharynx clear Neck- supple, no JVD Lungs- clear to auscultation Heart- regular rhythm; no murmur Abdomen- normal bowel sounds, soft, nontender Extremities- no calf tenderness, +edema Neuro- alert, oriented x 3; PERRL, EOMI; no facial palsy; no dysarthria Skin- warm & dry Results & Data Results & Data ([facility]) Vital Signs (Past 12 Hours) Vital Signs Temp Pulse Pulse Resp BP Pulse Ox 11/01/21 20:00 36.9 C 67 20 104/67 96 11/01/21 18:42 56 L 11/01/21 16:45 36.7 C 67 18 133/75 94 11/01/21 11:50 36.7 C 68 19 120/75 95 (1) COPD (chronic obstructive pulmonary disease) COPD type: COPD with acute exacerbation Qualified Code(s): J44.1 - Chronic obstructive pulmonary disease with (acute) exacerbation (2) Fluid overload Hypervolemia type: unspecified Qualified Code(s): E87.70 - Fluid overload, unspecified
[2021-11-02] MEDS: traMADol HCL 50 MG TABLET PO PRN ×4 (03:48→21:13)
[2021-11-02] MEDS: PANTOprazole 40 MG TAB PO SCH (06:12)
[2021-11-02 08:11] LABS: INR 1.6 (0.9-1.1); Prothrombin Time 15.6 Seconds (9.0-12.0)
[2021-11-02] MEDS: INSULIN ASPART PER UNIT SC SCH ×4 (08:13→22:07)
[2021-11-02 08:27] LABS: BUN Creatinine Ratio 38.4 (10-20); Calcium 9.9 mg/dl (8.5-10.1); Creatinine Clr Calc Pharmacy 167.4 ml/min; Est GFR (African American) 116.4 ml/min; Est GFR (Non-African American) 100.4 ml/min; Potassium 4.4 mmol/L (3.5-5.1)
[2021-11-02] MEDS: CYCLOBENZAPRINE HCL 10 MG TAB PO PRN ×2 (08:37→21:18)
[2021-11-02] MEDS: LORazepam 0.5 MG TAB PO PRN ×2 (08:37→16:55)
[2021-11-02] MEDS: methylPREDNISolone 40 MG in SYRINGE 0 ML IV SCH ×2 (08:37→21:17)
[2021-11-02] MEDS: FERROUS SULFATE 325 MG TAB PO SCH (08:38)
[2021-11-02] MEDS: SENNA 8.6 MG TAB PO PRN (08:38)
[2021-11-02] MEDS: guaiFENesin 600 MG TABCR PO SCH ×2 (08:38→21:18)
[2021-11-02] MEDS: METOPROLOL SUCC 25MG EXT REL TAB PO SCH ×2 (08:38→21:18)
[2021-11-02] MEDS: GABAPENTIN 800 MG TAB PO SCH ×3 (08:38→21:17)
[2021-11-02] MEDS: METHENAMINE HIPPURATE 1 GM TAB PO SCH (08:39)
[2021-11-02] MEDS: ISOSORBIDE MONO EXTENDED REL 30 MG TABCR PO SCH (08:39)
[2021-11-02] MEDS: ADVANCED PROBIOTIC 1250 MG CAPSULE PO SCH ×3 (08:39→21:18)
[2021-11-02] MEDS: TAMSULOSIN HCL 0.4 MG CAP PO SCH (08:39)
[2021-11-02] MEDS: FUROSEMIDE 40 MG/4 ML VIAL IV SCH ×2 (08:39→16:56)
[2021-11-02] MEDS: DOCUSATE SODIUM 100 MG CAP PO SCH ×2 (08:39→21:17)
[2021-11-02] MEDS: DULoxetine HCL 60 MG CAP PO SCH (08:40)
[2021-11-02] MEDS: SPIRONOLACTONE 25 MG TAB PO SCH (08:40)
[2021-11-02] MEDS: POLYETHYLENE (MIRALAX) 17 GM PACK PO SCH (08:40)
[2021-11-02] MEDS: NICOTINE 21 MG/24 HR TDSY TD SCH (08:41)
[2021-11-02] MEDS: POTASSIUM CHLORIDE CRTAB 20 MEQ TABCR PO SCH ×2 (08:41→21:18)
[2021-11-02] MEDS: ASPIRIN 81 MG ECTAB PO SCH (08:41)
[2021-11-02] MEDS: FINASTERIDE 5 MG TAB PO SCH (08:41)
[2021-11-02] MEDS: FAMOTIDINE 20 MG TAB PO SCH (08:41)
[2021-11-02] MEDS: UMECLIDINIUM BROMIDE 62.5MCG/BLISTER 7 PUFFS/INHALER INH SCH (08:42)
[2021-11-02] MEDS: MAGNESIUM OXIDE 400 MG TAB PO SCH (08:42)
[2021-11-02] MEDS: FLUTICASONE PROPIONATE NA SPR 16 GM BTL SCH (08:42)
[2021-11-02] MEDS: NYSTATIN POWDER 15GM BTL EXT PRN (08:44)
[2021-11-02] MEDS: NYSTATIN OINT 15 GM TUBE EXT SCH ×2 (08:44→21:20)
[2021-11-02] MEDS: FOLIC ACID 1 MG TAB PO SCH (08:44)
[2021-11-02] MEDS: buprenorphine HCL 8 MG SUBL SL SCH ×3 (08:46→21:14)
[2021-11-02] MEDS: ACETAMINOPHEN 1,000 MG/100 ML VIAL IV PRN ×2 (11:45→21:18)
[2021-11-02] MEDS: ATORVASTATIN 40 MG TAB PO SCH (11:46)
[2021-11-02] MEDS: WARFARIN SOD 5 MG TAB PO SCH (16:54)
--- NOTE | 2021-11-02 19:23 | XRay Report ---
XR knee RT 1 or 2V routine CLINICAL HISTORY: right knee pain TECHNIQUE: 2 views of the right knee were obtained. Comparison: Comparison is made to right knee radiographs 07/22/2021 FINDINGS: There is no evidence of an acute fracture. The alignment is anatomic. Minimal degenerative changes ar e seen in the medial compartment. No joint effusion is seen. No soft tissue abnormality is seen. IMPRESSION: No evidence of acute osseous injury. ACT 112: Negative or not required by law. Electronically signed by: Armand Tobar M.D. 11/02/2021 7:22 PM
[2021-11-02] MEDS: MELATONIN 3 MG TAB PO PRN (21:14)
[2021-11-02] MEDS: HEPARIN SOD 5,000 UNIT/0.5 ML VIAL SQ SCH (21:20)
[2021-11-02] MEDS: INSULIN GLARGINE SOLOSTAR 100 UNITS/ML 3 ML PEN SC SCH (22:08)
--- NOTE | 2021-11-02 22:34 | Hospitalist Progress Note ---
Date of Service November 02, 2021 Assessment & Plan (1) Acute right-sided congestive heart failure: Plan: Acute on chronic R heart failure with preserved EF Has not been taking his Lasix for the last 1 week or so Presented with shortness of breath but has not been require any extra oxygen to maintain saturation Likely has acute right-sided congestive heart failure with fluid overload Chest x-ray did not show any overt pulmonary edema and the BNP was within normal range Has been getting Lasix intravenously and making out a lot of urine He is feeling better already Appreciate cardiology input and recommendation to continue current dose of f urosemide cardiology on board Continue Lasix 40mg BID IV Continue monitor BMP Okay from cardiology standpoint to transfer to medical Chronic pain syndrome Has been on Suboxone We will continue that Has been taking Ultram 50 mg every 6 hourly---PDMP is not showing any prescription since July of last year and it was a started as part of the medication list of [facility]. He always asks for narcotic pain medications or wants to have increased dose of Ultram 200 mg every 6 hours-which were not given The PCP did discuss with his pain therapist Dr. Harsha Valencia #[phone] and was told that he can take narcotic pain medication when he goes to the rehab center and after discharge he will prescribe Suboxone but he did not want to give any narcotics or did not suggest any doses. The PCP declined to give any narcotics given the history of abuse. Generalized weakness PT and OT evaluation He wants to go to rehab PT and OT appreciated-recommended rehab Fall precaution (2) Fluid overload: Plan: As above (3) COVID-19: Plan: Noted to be COVID-19 virus positive Has had 2 doses of vaccine All of the family members have COVID-19 virus infection Clinically asymptomatic and has not been require any extra oxygen to maintain saturation Does not qualify for any intervention for COVID-19 virus infection No symptoms secondary to COVID-19 virus infection Will d/c steroid in am (4) Chronic respiratory failure: Plan: History of chronic respiratory failure secondary to COPD Has been on home oxygen with 4 L to maintain saturation Still requiring 4 L in the hospital-remains stable (5) COPD (chronic obstructive pulmonary disease): Plan: No signs and or symptoms of exacerbation Has minimal wheezing anteriorly-in part due to transmitted sounds from the trachea We will give [id number]-wji-tzton inhalation of albuterol Seems to have acute bronchitis and may have mild exacerbation of COPD Will give a small dose of intravenous Solu-Medrol and also nebulized bronchodilator Likely has a mild exacerbation-we will increase Solu-Medrol to 40 mg twice daily for a day or 2 and go back to oral prednisone thereafter Has been getting nebulized bronchodilator every 8 hours routinely Clinically better (6) Pickwickian syndrome: (7) BPH (benign prostatic hyperplasia): Plan: History of prostrate hypertrophy and has a indwelling Lloyd catheter History of recurrent catheter associated UTI Catheter was out for about 1 week and since then he has not been taking his Lasix Successfully introduced catheter and he does not require any urology consult as of today We will continue intravenous Lasix and give catheter on discharge (8) Seizure-like activity: Plan: Continue current medications (9) History of pulmonary embolism: Plan: Coumadin resumed since INR 1.7 today Continue monitor PT/INR (10) 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: Plan: Continue insulin SSI DVT prophylaxis Coumadin with INR 1.7 CODE STATUS Full Admission and Anticipated Discharge Date Admission Date: October 24, 2021 Subjective Pt was seen and examined with SOB due to COVID 19 and CHF Lying in bed with no acute distress Patient said today while walking to the bathroom, his right knee was tender Denies any chest pain, palpitation, dizziness and and fever Review of Systems Review of Systems: All systems reviewed & are unremarkable except as noted in Subjective Physical Exam Physical Exam: General- No acute distress Head- atraumatic ENT- oropharynx clear Neck- supple, no JVD Lungs- clear to auscultation Heart- regular rhythm; no murmur Abdomen- normal bowel sounds, soft, nontender Extremities- no calf tenderness, +edema,right knee tenderness Neuro- alert, oriented x 3; PERRL, EOMI; no facial palsy; no dysarthria Skin- warm & dry Results & Data Results & Data ([facility]) Vital Signs (Past 12 Hours) Vital Signs Temp Pulse Resp BP Pulse Ox 11/02/21 20:43 37.0 C 64 18 106/59 L 95 11/02/21 17:15 37 C 73 20 121/82 94 11/02/21 12:01 36.9 C 62 20 119/69 93 (1) Fluid overload Hypervolemia type: unspecified Qualified Code(s): E87.70 - Fluid overload, unspecified (2) COPD (chronic obstructive pulmonary disease) COPD type: COPD with acute exacerbation Qualified Code(s): J44.1 - Chronic obstructive pulmonary disease with (acute) exacerbation
[2021-11-03] MEDS: PANTOprazole 40 MG TAB PO SCH (05:55)
[2021-11-03] MEDS: HEPARIN SOD 5,000 UNIT/0.5 ML VIAL SQ SCH ×3 (05:56→21:00)
[2021-11-03 07:37] LABS: BUN Creatinine Ratio 41.5 (10-20); Calcium 9.8 mg/dl (8.5-10.1); Creatinine Clr Calc Pharmacy 173.3 ml/min; Est GFR (African American) 118.7 ml/min; Est GFR (Non-African American) 102.4 ml/min; INR 1.5 (0.9-1.1); Potassium 4.5 mmol/L (3.5-5.1); Prothrombin Time 14.3 Seconds (9.0-12.0)
[2021-11-03] MEDS: buprenorphine HCL 8 MG SUBL SL SCH ×3 (08:38→20:56)
[2021-11-03] MEDS: LORazepam 0.5 MG TAB PO PRN ×2 (08:38→21:24)
[2021-11-03] MEDS: traMADol HCL 50 MG TABLET PO PRN ×3 (08:38→20:56)
[2021-11-03] MEDS: SPIRONOLACTONE 25 MG TAB PO SCH (08:38)
[2021-11-03] MEDS: ACETAMINOPHEN 1,000 MG/100 ML VIAL IV PRN ×2 (08:38→17:28)
[2021-11-03] MEDS: FINASTERIDE 5 MG TAB PO SCH (08:39)
[2021-11-03] MEDS: ISOSORBIDE MONO EXTENDED REL 30 MG TABCR PO SCH (08:40)
[2021-11-03] MEDS: METHENAMINE HIPPURATE 1 GM TAB PO SCH (08:40)
[2021-11-03] MEDS: NICOTINE 21 MG/24 HR TDSY TD SCH (08:40)
[2021-11-03] MEDS: POLYETHYLENE (MIRALAX) 17 GM PACK PO SCH (08:40)
[2021-11-03] MEDS: FLUTICASONE PROPIONATE NA SPR 16 GM BTL SCH (08:41)
[2021-11-03] MEDS: GABAPENTIN 800 MG TAB PO SCH ×3 (08:41→20:58)
[2021-11-03] MEDS: DOCUSATE SODIUM 100 MG CAP PO SCH ×2 (08:41→20:57)
[2021-11-03] MEDS: FOLIC ACID 1 MG TAB PO SCH (08:41)
[2021-11-03] MEDS: DULoxetine HCL 60 MG CAP PO SCH (08:42)
[2021-11-03] MEDS: METOPROLOL SUCC 25MG EXT REL TAB PO SCH ×2 (08:42→20:58)
[2021-11-03] MEDS: TAMSULOSIN HCL 0.4 MG CAP PO SCH (08:42)
[2021-11-03] MEDS: ADVANCED PROBIOTIC 1250 MG CAPSULE PO SCH ×3 (08:42→20:57)
[2021-11-03] MEDS: FERROUS SULFATE 325 MG TAB PO SCH (08:42)
[2021-11-03] MEDS: POTASSIUM CHLORIDE CRTAB 20 MEQ TABCR PO SCH ×2 (08:42→21:02)
[2021-11-03] MEDS: guaiFENesin 600 MG TABCR PO SCH ×2 (08:42→20:57)
[2021-11-03] MEDS: MAGNESIUM OXIDE 400 MG TAB PO SCH (08:43)
[2021-11-03] MEDS: FUROSEMIDE 40 MG/4 ML VIAL IV SCH ×2 (08:43→17:18)
[2021-11-03] MEDS: FAMOTIDINE 20 MG TAB PO SCH (08:43)
[2021-11-03] MEDS: ASPIRIN 81 MG ECTAB PO SCH (08:43)
[2021-11-03] MEDS: UMECLIDINIUM BROMIDE 62.5MCG/BLISTER 7 PUFFS/INHALER INH SCH (08:44)
[2021-11-03] MEDS: NYSTATIN OINT 15 GM TUBE EXT SCH ×3 (08:44→21:00)
[2021-11-03] MEDS: methylPREDNISolone 40 MG in SYRINGE 0 ML IV SCH ×2 (08:58→20:59)
[2021-11-03] MEDS: INSULIN ASPART PER UNIT SC SCH ×4 (09:15→21:20)
[2021-11-03] MEDS: ATORVASTATIN 40 MG TAB PO SCH (12:33)
[2021-11-03] MEDS: CYCLOBENZAPRINE HCL 10 MG TAB PO PRN (15:01)
[2021-11-03] MEDS: WARFARIN SOD 5 MG TAB PO SCH (17:10)
[2021-11-03] MEDS: MELATONIN 3 MG TAB PO PRN (20:55)
[2021-11-03] MEDS: NYSTATIN POWDER 15GM BTL EXT PRN (20:59)
[2021-11-03] MEDS: INSULIN GLARGINE SOLOSTAR 100 UNITS/ML 3 ML PEN SC SCH (21:20)
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
[2021-11-04] MEDS: PANTOprazole 40 MG TAB PO SCH (06:08)
[2021-11-04] MEDS: HEPARIN SOD 5,000 UNIT/0.5 ML VIAL SQ SCH ×3 (06:09→22:17)
[2021-11-04 07:50] LABS: INR 1.6 (0.9-1.1); Prothrombin Time 15.6 Seconds (9.0-12.0)
[2021-11-04 08:06] LABS: BUN Creatinine Ratio 37.9 (10-20); Calcium 9.7 mg/dl (8.5-10.1); Creatinine Clr Calc Pharmacy 164.1 ml/min; Est GFR (African American) 115.8 ml/min; Est GFR (Non-African American) 99.9 ml/min; Potassium 4.5 mmol/L (3.5-5.1)
[2021-11-04] MEDS: INSULIN ASPART PER UNIT SC SCH ×4 (08:52→20:02)
[2021-11-04] MEDS: LORazepam 0.5 MG TAB PO PRN ×2 (08:58→20:25)
[2021-11-04] MEDS: traMADol HCL 50 MG TABLET PO PRN ×3 (08:58→22:17)
[2021-11-04] MEDS: NICOTINE 21 MG/24 HR TDSY TD SCH (08:59)
[2021-11-04] MEDS: ACETAMINOPHEN 1,000 MG/100 ML VIAL IV PRN ×2 (08:59→17:59)
[2021-11-04] MEDS: buprenorphine HCL 8 MG SUBL SL SCH ×3 (08:59→20:57)
[2021-11-04] MEDS: METHENAMINE HIPPURATE 1 GM TAB PO SCH (09:00)
[2021-11-04] MEDS: POLYETHYLENE (MIRALAX) 17 GM PACK PO SCH (09:00)
[2021-11-04] MEDS: FINASTERIDE 5 MG TAB PO SCH (09:00)
[2021-11-04] MEDS: FOLIC ACID 1 MG TAB PO SCH (09:00)
[2021-11-04] MEDS: SENNA 8.6 MG TAB PO PRN (09:00)
[2021-11-04] MEDS: SPIRONOLACTONE 25 MG TAB PO SCH (09:00)
[2021-11-04] MEDS: MAGNESIUM OXIDE 400 MG TAB PO SCH (09:00)
[2021-11-04] MEDS: TAMSULOSIN HCL 0.4 MG CAP PO SCH (09:03)
[2021-11-04] MEDS: ISOSORBIDE MONO EXTENDED REL 30 MG TABCR PO SCH (09:04)
[2021-11-04] MEDS: METOPROLOL SUCC 25MG EXT REL TAB PO SCH ×2 (09:04→20:24)
[2021-11-04] MEDS: POTASSIUM CHLORIDE CRTAB 20 MEQ TABCR PO SCH ×2 (09:05→20:50)
[2021-11-04] MEDS: DOCUSATE SODIUM 100 MG CAP PO SCH ×2 (09:06→20:26)
[2021-11-04] MEDS: GABAPENTIN 800 MG TAB PO SCH ×3 (09:06→20:27)
[2021-11-04] MEDS: guaiFENesin 600 MG TABCR PO SCH ×2 (09:07→20:26)
[2021-11-04] MEDS: ASPIRIN 81 MG ECTAB PO SCH (09:07)
[2021-11-04] MEDS: DULoxetine HCL 60 MG CAP PO SCH (09:07)
[2021-11-04] MEDS: ADVANCED PROBIOTIC 1250 MG CAPSULE PO SCH ×3 (09:08→20:25)
[2021-11-04] MEDS: FAMOTIDINE 20 MG TAB PO SCH (09:09)
[2021-11-04] MEDS: FERROUS SULFATE 325 MG TAB PO SCH (09:09)
[2021-11-04] MEDS: FLUTICASONE PROPIONATE NA SPR 16 GM BTL SCH (09:10)
[2021-11-04] MEDS: UMECLIDINIUM BROMIDE 62.5MCG/BLISTER 7 PUFFS/INHALER INH SCH (09:11)
[2021-11-04] MEDS: NYSTATIN OINT 15 GM TUBE EXT SCH ×2 (09:11→20:27)
[2021-11-04] MEDS: FUROSEMIDE 40 MG/4 ML VIAL IV SCH ×2 (09:11→17:53)
[2021-11-04] MEDS: methylPREDNISolone 40 MG in SYRINGE 0 ML IV SCH ×2 (09:11→20:25)
[2021-11-04] MEDS: ATORVASTATIN 40 MG TAB PO SCH (13:09)
[2021-11-04] MEDS: CYCLOBENZAPRINE HCL 10 MG TAB PO PRN ×2 (14:09→20:51)
[2021-11-04] MEDS ORDERED: SODIUM CHLORIDE 0.65% NA SOLN 45 ML (OCEAN) ONE ×2 (15:37→17:57)
[2021-11-04] MEDS: WARFARIN SOD 5 MG TAB PO SCH (17:52)
[2021-11-04] MEDS: INSULIN GLARGINE SOLOSTAR 100 UNITS/ML 3 ML PEN SC SCH (20:04)
[2021-11-04] MEDS: MELATONIN 3 MG TAB PO PRN (20:56)
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
[2021-11-05] MEDS: PANTOprazole 40 MG TAB PO SCH (05:48)
[2021-11-05] MEDS: HEPARIN SOD 5,000 UNIT/0.5 ML VIAL SQ SCH ×2 (05:49→13:19)
[2021-11-05 07:21] LABS: INR 1.8 (0.9-1.1); Prothrombin Time 17.2 Seconds (9.0-12.0)
[2021-11-05 07:44] LABS: BUN Creatinine Ratio 34.4 (10-20); Calcium 9.5 mg/dl (8.5-10.1); Creatinine Clr Calc Pharmacy 152.8 ml/min; Est GFR (African American) 109.8 ml/min; Est GFR (Non-African American) 94.7 ml/min; Potassium 4.3 mmol/L (3.5-5.1)
[2021-11-05] MEDS: UMECLIDINIUM BROMIDE 62.5MCG/BLISTER 7 PUFFS/INHALER INH SCH (08:47)
[2021-11-05] MEDS: NICOTINE 21 MG/24 HR TDSY TD SCH (08:47)
[2021-11-05] MEDS: buprenorphine HCL 8 MG SUBL SL SCH ×3 (08:51→20:23)
[2021-11-05] MEDS: NYSTATIN OINT 15 GM TUBE EXT SCH ×2 (08:51→20:35)
[2021-11-05] MEDS: traMADol HCL 50 MG TABLET PO PRN ×2 (08:52→16:43)
[2021-11-05] MEDS: METHENAMINE HIPPURATE 1 GM TAB PO SCH (08:53)
[2021-11-05] MEDS: FUROSEMIDE 40 MG/4 ML VIAL IV SCH ×2 (08:53→16:52)
[2021-11-05] MEDS: FOLIC ACID 1 MG TAB PO SCH (08:54)
[2021-11-05] MEDS: MAGNESIUM OXIDE 400 MG TAB PO SCH (08:54)
[2021-11-05] MEDS: DULoxetine HCL 60 MG CAP PO SCH (08:55)
[2021-11-05] MEDS: SPIRONOLACTONE 25 MG TAB PO SCH (08:55)
[2021-11-05] MEDS: METOPROLOL SUCC 25MG EXT REL TAB PO SCH ×2 (08:56→20:28)
[2021-11-05] MEDS: FINASTERIDE 5 MG TAB PO SCH (08:56)
[2021-11-05] MEDS: guaiFENesin 600 MG TABCR PO SCH ×2 (08:57→20:27)
[2021-11-05] MEDS: GABAPENTIN 800 MG TAB PO SCH ×3 (08:57→20:28)
[2021-11-05] MEDS: ADVANCED PROBIOTIC 1250 MG CAPSULE PO SCH ×3 (08:57→20:27)
[2021-11-05] MEDS: FLUTICASONE PROPIONATE NA SPR 16 GM BTL SCH (08:59)
[2021-11-05] MEDS: POLYETHYLENE (MIRALAX) 17 GM PACK PO SCH (08:59)
[2021-11-05] MEDS: ISOSORBIDE MONO EXTENDED REL 30 MG TABCR PO SCH (09:00)
[2021-11-05] MEDS: DOCUSATE SODIUM 100 MG CAP PO SCH ×2 (09:00→20:39)
[2021-11-05] MEDS: ASPIRIN 81 MG ECTAB PO SCH (09:01)
[2021-11-05] MEDS: TAMSULOSIN HCL 0.4 MG CAP PO SCH (09:01)
[2021-11-05] MEDS: FAMOTIDINE 20 MG TAB PO SCH (09:02)
[2021-11-05] MEDS: FERROUS SULFATE 325 MG TAB PO SCH (09:02)
[2021-11-05] MEDS: POTASSIUM CHLORIDE CRTAB 20 MEQ TABCR PO SCH ×2 (09:02→20:39)
[2021-11-05] MEDS: INSULIN ASPART PER UNIT SC SCH ×4 (09:14→20:25)
[2021-11-05] MEDS: CYCLOBENZAPRINE HCL 10 MG TAB PO PRN ×2 (10:15→20:23)
[2021-11-05] MEDS: ACETAMINOPHEN 1,000 MG/100 ML VIAL IV PRN ×2 (11:04→20:31)
[2021-11-05] MEDS: ATORVASTATIN 40 MG TAB PO SCH (11:38)
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
[2021-11-05] MEDS: WARFARIN SOD 5 MG TAB PO SCH (16:52)
[2021-11-05] MEDS: MELATONIN 3 MG TAB PO PRN (20:24)
[2021-11-05] MEDS: LORazepam 0.5 MG TAB PO PRN (20:24)
[2021-11-05] MEDS: INSULIN GLARGINE SOLOSTAR 100 UNITS/ML 3 ML PEN SC SCH (20:34)
[2021-11-06] MEDS: PANTOprazole 40 MG TAB PO SCH (06:41)
[2021-11-06 07:00] LABS: Hematocrit (blood only) 43.9 % (42-52); Hemoglobin 13.6 g/dL (14.0-18.0); Mean Corpuscular Volume 80.8 fL (80-100); Mean Platelet Volume 10.7 fL (7.4-10.4); Platelet Count 298 K/uL (130-400); RDW Coefficient of Variation 17.8 % (11.5-14.5); RDW Standard Deviation 51.7 fL (36.4-46.3); Red Blood Count 5.43 M/uL (4.7-6.1); White Blood Count 13.02 K/uL (4.8-10.8)
[2021-11-06 07:27] LABS: BUN Creatinine Ratio 34.3 (10-20); Calcium 9.4 mg/dl (8.5-10.1); Creatinine Clr Calc Pharmacy 135.1 ml/min; Est GFR (African American) 94.8 ml/min; Est GFR (Non-African American) 81.8 ml/min; Potassium 4.3 mmol/L (3.5-5.1)
[2021-11-06] MEDS: GABAPENTIN 800 MG TAB PO SCH ×2 (08:09→14:23)
[2021-11-06] MEDS: guaiFENesin 600 MG TABCR PO SCH (08:09)
[2021-11-06] MEDS: METOPROLOL SUCC 25MG EXT REL TAB PO SCH (08:10)
[2021-11-06] MEDS: ADVANCED PROBIOTIC 1250 MG CAPSULE PO SCH ×2 (08:10→14:23)
[2021-11-06] MEDS: DULoxetine HCL 60 MG CAP PO SCH (08:12)
[2021-11-06] MEDS: FOLIC ACID 1 MG TAB PO SCH (08:12)
[2021-11-06] MEDS: METHENAMINE HIPPURATE 1 GM TAB PO SCH (08:12)
[2021-11-06] MEDS: FAMOTIDINE 20 MG TAB PO SCH (08:13)
[2021-11-06] MEDS: SPIRONOLACTONE 25 MG TAB PO SCH (08:13)
[2021-11-06] MEDS: ISOSORBIDE MONO EXTENDED REL 30 MG TABCR PO SCH (08:13)
[2021-11-06] MEDS: MAGNESIUM OXIDE 400 MG TAB PO SCH (08:13)
[2021-11-06] MEDS: ASPIRIN 81 MG ECTAB PO SCH (08:13)
[2021-11-06] MEDS: TAMSULOSIN HCL 0.4 MG CAP PO SCH (08:14)
[2021-11-06] MEDS: FERROUS SULFATE 325 MG TAB PO SCH (08:14)
[2021-11-06] MEDS: FINASTERIDE 5 MG TAB PO SCH (08:14)
[2021-11-06] MEDS: FLUTICASONE PROPIONATE NA SPR 16 GM BTL SCH (08:15)
[2021-11-06] MEDS: UMECLIDINIUM BROMIDE 62.5MCG/BLISTER 7 PUFFS/INHALER INH SCH (08:15)
[2021-11-06] MEDS: NYSTATIN OINT 15 GM TUBE EXT SCH (08:15)
[2021-11-06] MEDS: NICOTINE 21 MG/24 HR TDSY TD SCH (08:16)
[2021-11-06] MEDS: POLYETHYLENE (MIRALAX) 17 GM PACK PO SCH ×2 (08:16→09:42)
[2021-11-06] MEDS: DOCUSATE SODIUM 100 MG CAP PO SCH (08:17)
[2021-11-06] MEDS: FUROSEMIDE 40 MG/4 ML VIAL IV SCH (08:17)
[2021-11-06] MEDS: buprenorphine HCL 8 MG SUBL SL SCH ×2 (08:17→14:25)
[2021-11-06] MEDS: traMADol HCL 50 MG TABLET PO PRN ×2 (08:17→14:23)
[2021-11-06] MEDS: ACETAMINOPHEN 1,000 MG/100 ML VIAL IV PRN ×2 (08:28→14:25)
[2021-11-06] MEDS: INSULIN ASPART PER UNIT SC SCH ×2 (08:44→12:07)
[2021-11-06] MEDS: POTASSIUM CHLORIDE CRTAB 20 MEQ TABCR PO SCH (08:45)
[2021-11-06] MEDS: BENZONATATE 100 MG CAPSULE PO PRN (11:33)
[2021-11-06] MEDS: ATORVASTATIN 40 MG TAB PO SCH (11:37)
--- NOTE | 2021-11-06 12:20 | Discharge Summary ---
Date of Service November 06, 2021 Admission HPI Per Admitting Provider This is a 51-year-old male with a past medical history significant for recurrent PE, on Coumadin, complicated bronchitis, COPD, history of recurrent UTI secondary to BPH, history of chronic indwelling Fontaine catheter, on chronic methenamine hippurate suppression, type 2 diabetes, history of traumatic subdural hematoma, history of subarachnoid hemorrhage in the setting of Coumadin coagulopathy, history of chronic diastolic CHF, CAD, hypertension, hyperlipidemia, chronic pain, history of drug-seeking behavior, history of ongoing tobacco abuse, multiple medical admissions, comes in because he has chronic chest pain, chronic shortness of breath, and found to be COVID positive. The patient is vaccinated, but did not receive booster. He said he did not receive booster because he was not able to go outside. He has ambulatory dysfunction and he is requesting if he can get COVID booster shot in the hospital. He says his grandkids got COVID and his daughter and his just a couple of days ago got COVID. He says his cough is a little worse and he is currently on 4 liters of oxygen, which is his baseline, but he says he was using more than usual and also his other problem is his Fontaine catheter came out about a week ago, it fell out and since then he stopped taking Lasix because he is pissing in the bed by himself and he says he gained a lot of weight because of that. He was recently seen by urology in the end of August and there is a question of whether he is a candidate for TURP. The patient wants his Fontaine catheter back in. He does not want to take any IV Lasix while he is not on Fotnaine catheter. He complains of chronic shortness of breath, has chronic headache. No blurred visions, no runny nose. Appetite is okay. No abdominal pain, no diarrhea. Has swelling in the legs. Currently resting comfortably, hemodynamically stable, saturating 98% on 4 liters. Admission Exam Per Admitting Provider GENERAL: The patient is morbidly-morbidly obese, not in acute distress. VITAL SIGNS: Temperature 36.9, pulse 72, respiratory rate 17, blood pressure 165/83, oxygen 98% on 4 liters. HEENT: Pupils equal, round and reactive to light. Oral mucosa moist. NECK: No JVD, no neck masses. CARDIOVASCULAR: S1 and S2 heard. Regular rate and rhythm. No murmur, no gallop. RESPIRATORY: Normal AP diameter. No accessory muscle use. Mild bibasilar crackles. Mild rhonchi. No wheezing. ABDOMEN: Soft, bowel sounds present, nontender, no distention. CENTRAL NERVOUS SYSTEM: Cranial nerves II through XII are grossly intact, nonfocal. EXTREMITIES: Bilateral lower extremity gross edema seen. No erythema seen. Principal Diagnosis Acute on chronic right heart failure COVID 19 infection Chronic pain syndrome Crhonic respiratory failure Discharge Exam Constitutional + well hydrated and + obese; no acute distress Eyes PERRL, conjunctivae normal, anicteric sclerae ENMT external ear and nose normal, oropharynx normal Respiratory normal respiratory effort; no respiratory distress Diminished breath sounds Cardiovascular Rate/Rhythm: regular rate and regular rhythm S1 S2 Gastrointestinal (Abdomen) normal bowel sounds, soft, nontender, no hepatosplenomegaly Musculoskeletal Chronic pedal edema Neurologic PERRL, EOMI, accommodation nl, no face palsy, no dysarthria Psychiatric A+Ox3, euthymic affect Discharge Data Allergies Allergy/AdvReac Type Severity Reaction Status Date / Time cefepime Allergy Intermediate rash Verified 10/24/21 20:03 daptomycin Allergy Intermediate rash Verified 10/24/21 20:03 fentanyl Allergy Intermediate RASH/HIVES/SKIN Verified 10/24/21 20:03 REDNESS naloxone AdvReac Severe extremely Verified 10/24/21 20:03 sick acetaminophen [From Tylenol] AdvReac Intermediate IRRITATES Verified 10/24/21 20:17 & UPSET STOMACH ibuprofen AdvReac Intermediate Nausea Verified 10/24/21 20:17 valproic acid AdvReac Intermediate PANCREATITS Verified 10/24/21 20:03 Consultations 10/24/21 20:31 ED Decision to Admit Stat 10/25/21 08:00 Consult Cardiology Routine Hospital Course (1) Fluid overload: (2) Acute right-sided congestive heart failure: Acute on chronic R heart failure with preserved EF Had not been taking his Lasix for the last 1 week or so Presented with shortness of breath but has not been require any extra oxygen to maintain saturation Likely has acute right-sided congestive heart failure with fluid overload Chest x-ray did not show any overt pulmonary edema and the BNP was within normal range( However, patient is obese) Patient was treated with IV lasix with good diuresis Continue home po lasix bid on discharge Counselled patient on importance of adherence to fluid restriction and low salt diet Chronic pain syndrome Has been on buprenorphine PDMP is not showing any prescription for opioid since July of last year and it was a started as part of the medication list of [facility]. Concern for opioid seeking behavior based on previous providers Per Previous Provider, patient's PCP did discuss with his pain therapist Dr. Harsha Valencia #[phone] and was told that he can take narcotic pain medication when he goes to the rehab center and after discharge he will prescribe Suboxone but he did not want to give any narcotics or did not suggest any doses. The PCP declined to give any narcotics given the history of abuse. I discussed chronic pain management with patient and need to avoid opioids as much as possible Continue tylenol prn and buprenorphine Right knee pain Knee Xray showed no evidence of acute osseous injury Continue PT/OT at rehab Fall precaution (3) COVID-19: Noted to be COVID-19 virus positive Has had 2 doses of vaccine All of the family members have COVID-19 virus infection (4) Chronic respiratory failure: History of chronic respiratory failure secondary to COPD Has been on home oxygen with 4 L to maintain saturation Still requiring 4 L in the hospital Wean oxygen as tolerated at rehab (5) COPD (chronic obstructive pulmonary disease): Was treated with solumedrol for mild exacerbation Currently stable Continue nebs as needed (6) Pickwickian syndrome: (7) BPH (benign prostatic hyperplasia): History of prostrate hypertrophy and has a indwelling Fontaine catheter History of recurrent catheter associated UTI Catheter was out for about 1 week prior to presentation and since then he has not been taking his Lasix Fontaine was replaced Discharged on fontaine and patient is to follow up with urology Continue flomax (8) Seizure-like activity: Continue current medications (9) History of pulmonary embolism: Continue warfarin Continue monitor PT/INR at rehab Follow up with Anticoagulation clinic on discharge (10) 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: Continue home antidiabetics Total Time Total Time Spent Total Time Spent (In Minutes): 50 Total Time Includes: Examination of the Patient, Discharge Planning and Medication Reconciliation Discharge Plan Discharge Items Patient Disposition: Transfer Inpatient Rehab Fac Reason For Visit: Shortness of breath Discharge Diagnosis: Acute on chronic right heart failure COVID 19 infection Chronic pain syndrome Crhonic respiratory failure Activity: As commented below Activity Comment: Per PT recommendations Non-emergency contact: Primary Care Provider, Acid Washer Operator and Pain Management Call non-emergency contact if: you have any medication questions and your symptoms worsen Follow-up/Referrals: Roberto Askew MD [Primary Care Provider] - Diet: Carb Consistent or DM2 and Heart Healthy Fluids: 1800ml (7 cups) Addtl Attending Provider Instructions: Mr Milner. You came to the hospital complaining of shortness of breath. You were evaluated and treated for acute on chronic right sided heart failure. You were also found to have COVID 19 infection. You were treated for these and your symptoms are improving. You use oxygen at 4l/min at bedtime. You are currently on 4l/min. The staff at the facility you are being discharged at will continue to wean your oxygen. It is very important that you continue your subutex for your chronic pain and to continue follow up with your Pain doctor when discharged from rehab. Please continue to follow up with your Primary Doctor Please ensure follow up with Cardiology. Please continue your warfarin. Your INR should be monitored at the rehab and dose may be adjusted as needed to maintain a goal of 2-3. Please continue to follow up with anticoagulation clinic. It was a pleasure taking care of you. Pending Studies at Discharge: No Stand-Alone Forms: My [facility] Skilled Items Patient informed of condition?: Yes DNR: No Discharge Level of Care: Acute rehab Communicable Disease: No Discharge Prognosis: Stable Lines: None Urinary Catheter: Yes Medications and DC Order Prescriptions: New acetaminophen [Tylenol Extra Strength] 500 mg Tablet 1,000 mg PO Q8H PRN (Reason: pain) Qty: 50 RF: 0 benzonatate 100 mg Capsule 100 mg PO TID PRN (Reason: cough) Qty: 30 RF: 0 Continued ondansetron HCl [Zofran] 4 mg tablet 4 mg PO Q8 PRN (Reason: Nausea And Vomiting) Qty: 30 RF: 0 polyethylene glycol 3350 [Miralax] 17 gram powder in packet 17 g PO QAM RF: 0 nitroglycerin [Nitrostat] 0.4 mg tablet, sublingual 0.4 mg Sublingual DIRECTED PRN (Reason: CHEST PAIN) RF: 0 nystatin 100,000 unit/gram Powder 1 applic TOPICAL TID PRN (Reason: Skin Irritation) RF: 0 cyclobenzaprine 10 mg Tablet 10 mg PO BID PRN (Reason: Muscle Spasm) RF: 0 ipratropium-albuterol 0.5 mg-3 mg(2.5 mg base)/3 mL Solution For Nebulization 3 ml INHALATION Q6H PRN (Reason: Shortness Of Breath Or Wheezing) RF: 0 docusate sodium 100 mg Capsule 100 mg PO BID RF: 0 duloxetine 60 mg capsule,delayed release(DR/EC) 60 mg PO DAILY RF: 0 famotidine 20 mg tablet 20 mg PO DAILY RF: 0 methenamine hippurate 1 gram tablet 1 g PO DAILY RF: 0 fluticasone propionate 50 mcg/actuation spray,suspension 2 spray Intranasal DAILY RF: 0 aspirin [Ecotrin Low Strength] 81 mg tablet,delayed release (DR/EC) 81 mg PO QAM RF: 0 Spiriva with HandiHaler 18 mcg capsule, w/inhalation device 1 puff inhalation QAM RF: 0 finasteride 5 mg tablet 5 mg PO QAM RF: 0 tamsulosin [Flomax] 0.4 mg Capsule 0.4 mg PO QAM RF: 0 metoprolol succinate 50 mg Tablet Extended Release 24 Hr 75 mg PO BID RF: 0 spironolactone 25 mg Tablet 25 mg PO QAM RF: 0 atorvastatin 80 mg tablet 80 mg PO QPM RF: 0 sennosides [senna] 8.6 mg Tablet 8.6 mg PO DAILY PRN (Reason: Constipation) RF: 0 folic acid 1 mg Tablet 1 mg PO QAM RF: 0 furosemide [Lasix] 40 mg tablet 40 mg PO BID RF: 0 lorazepam 0.5 mg tablet 0.5 mg PO Q8 PRN (Reason: Anxiety) RF: 0 potassium chloride 20 mEq Tablet Extended Release 20 meq PO BID RF: 0 albuterol sulfate 90 mcg/actuation Hfa Aerosol Inhaler 2 puff INHALATION Q4 PRN (Reason: Dyspnea) RF: 0 omeprazole 20 mg Capsule,Delayed Release(Dr/Ec) 20 mg PO DAILYBB RF: 0 gabapentin 800 mg tablet 800 mg PO TID RF: 0 warfarin 5 mg tablet 2.5 - 5 mg PO DIRECTED RF: 0 buprenorphine HCl 8 mg tablet, sublingual 8 mg SUBLINGUAL TID RF: 0 isosorbide mononitrate 30 mg Tablet Extended Release 24 Hr 30 mg PO DAILY RF: 0 glipizide 10 mg tablet 10 mg PO BID RF: 0 Lantus Solostar U-100 Insulin 100 unit/mL (3 mL) Insulin Pen 50 unit SC HS 30 Days Qty: 15 RF: 3 (DME) insulin admin supplies Insulin Pen See Rx Instructions .ROUTE .MEDSUPPLY Qty: 1 RF: 0 urea [Ureacin-20] 20 % Cream 1 applic TOPICAL BID RF: 0 magnesium oxide 400 mg (241.3 mg magnesium) tablet 400 mg PO DAILY RF: 0 ferrous sulfate 325 mg (65 mg iron) Tablet 325 mg PO QAM RF: 0 hydroxyzine HCl 25 mg Tablet 25 mg PO QID PRN (Reason: Anxiety) RF: 0 insulin aspart U-100 [Novolog Flexpen U-100 Insulin] 100 unit/mL (3 mL) Insulin Pen 1 unit SUBCUT TIDM RF: 0 Lactinex 1 million cell tablet,chewable 1 tab PO TID Qty: 30 RF: 0 Discontinued tramadol 50 mg tablet 50 mg PO Q6 PRN (Reason: Pain) Qty: 20 RF: 0 Discharge Orders: Discharge Order (Routine); Ordered 11/06/21 Ordered By: Winnie Pickering/Other Patient Handouts: Managing Type 2 Diabetes Admission Data Admit Date/Time: 10/24/21 22:08 Attending Provider: Winnie Lara I. Admit Provider: Everardo Ibarra Primary Care Provider: Roberto Askew Other Providers: [facility] ; [facility] ; [facility] ; Augustus Vasquez ; Everardo Ibarra ; Yvon Del Valle ; Dick Cardoza ; Miguel Angel Lee ; Jacob Penn ; Manuel English ; Owen Saavedra ; Berna Richardson ; Josefina Chavez ; Rocío Ngo ; Popeye Fall ; Xu Silvestre Other Interventions: Discharge Summary Assessment (RN) Last Done: 11/06/21 12:36
[2021-11-06] MEDS: CYCLOBENZAPRINE HCL 10 MG TAB PO PRN (14:23)
[2021-11-06] MEDS: LORazepam 0.5 MG TAB PO PRN (14:24)
== END 2021-11-06 16:11 | DRG 291 ==
LOC: ED 17:08 → 2S 22:08 → SUATTDRO 22:08 → 2S 10-25 04:02

== ENCOUNTER 2021-11-26 16:18 | Inpatient (IN) ==
--- NOTE | 2021-11-26 17:01 | Emergency Department Note ---
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 (0.00-0.02) K/uL PT (9.0-12.0) Seconds INR (0.9-1.1) VBG pH 7.43 H (7.36-7.41) VBG pCO2 70 H (38-50) mmHg VBG pO2 19 mmHg VBG HCO3 46 mmol/L VBG O2 Saturation < 60.0 % VBG Base Excess 17.4 mEq/L Barometric Pressure 730.6 mm/Hg Sodium (136-145) mmol/L Potassium (3.5-5.1) mmol/L Chloride (98-107) mmol/L Carbon Dioxide (21-32) mmol/L Anion Gap BUN (6-23) mg/dl Creatinine (0.6-1.4) mg/dl Est Cr Clr Drug Dosing ml/min Est GFR ( Amer) ml/min Est GFR (Non-Af Amer) ml/min BUN/Creatinine Ratio (10-20) Glucose (70-99(Fasting)) mg/dl Lactate 1.7 (0.4-2.0) mmol/L Calcium (8.5-10.1) mg/dl Magnesium (1.7-2.4) mg/dl Total Bilirubin (0.2-1.0) mg/dl AST (13-39) U/L ALT (7-52) U/L Alkaline Phosphatase (34-104) U/L Ammonia Total Creatine Kinase (30-223) U/L Troponin I (0-0.04) ng/ml B-Natriuretic Peptide 41 (0-100) pg/ml Total Protein (6.0-8.3) gm/dl Albumin (3.4-5.0) gm/dl Globulin (2.5-4.0) gm/dl Albumin/Globulin Ratio (0.9-2) Lipase (11-82) U/L Procalcitonin (0-0.5) ng/ml TSH (0.300-4.500) uIu/ml Urine Color Urine Appearance (Clear) Urine pH (4.5-7.5) Ur Specific [place] (1.000-1.030) Urine Protein (Negative) Urine Glucose (UA) (Negative) Urine Ketones (Negative) Urine Blood (Negative) Urine Nitrite (Negative) Urine Bilirubin (Negative) Urine Urobilinogen (Negative) Ur Leukocyte Esterase (Negative) Urine WBC (Auto) (0-5) /hpf Urine RBC (Auto) (0-4) /hpf U Hyaline Cast (Auto) (0-5) /lpf U Epithel Cells (Auto) (0-5) /lpf Urine Bacteria (Auto) (Negative) SARS-CoV-2, RNA, NAAT (NEGATIVE) Blood Type Antibody Screen 11/26/21 11/26/21 Range/Units 18:53 19:45 WBC (4.8-10.8) K/uL RBC (4.7-6.1) M/uL Hgb (14.0-18.0) g/dL Hct (42-52) % MCV (80-100) fL MCH (25-34) pg MCHC (32-36) g/dL RDW Std Deviation (36.4-46.3) fL RDW Coeff of Megan (11.5-14.5) % Plt Count (130-400) K/uL MPV (7.4-10.4) fL Immature Gran % (Auto) % Neut % (Auto) % Lymph % (Auto) % [place] % (Auto) % Eos % (Auto) % Baso % (Auto) % Neut # (Auto) (1.4-6.5) K/uL Lymph # (Auto) (1.2-3.4) K/uL [place] # (Auto) (0.11-0.59) K/uL Eos # (Auto) (0-0.5) K/uL Baso # (Auto) (0-0.2) K/uL Immature Gran # (Auto) (0.00-0.02) K/uL PT (9.0-12.0) Seconds INR (0.9-1.1) VBG pH (7.36-7.41) VBG pCO2 (38-50) mmHg VBG pO2 mmHg VBG HCO3 mmol/L VBG O2 Saturation % VBG Base Excess mEq/L Barometric Pressure mm/Hg Sodium (136-145) mmol/L Potassium (3.5-5.1) mmol/L Chloride (98-107) mmol/L Carbon Dioxide (21-32) mmol/L Anion Gap BUN (6-23) mg/dl Creatinine (0.6-1.4) mg/dl Est Cr Clr Drug Dosing ml/min Est GFR ( Amer) ml/min Est GFR (Non-Af Amer) ml/min BUN/Creatinine Ratio (10-20) Glucose (70-99(Fasting)) mg/dl Lactate (0.4-2.0) mmol/L Calcium (8.5-10.1) mg/dl Magnesium (1.7-2.4) mg/dl Total Bilirubin (0.2-1.0) mg/dl AST (13-39) U/L ALT (7-52) U/L Alkaline Phosphatase (34-104) U/L Ammonia Cancelled Cancelled Total Creatine Kinase (30-223) U/L Troponin I (0-0.04) ng/ml B-Natriuretic Peptide (0-100) pg/ml Total Protein (6.0-8.3) gm/dl Albumin (3.4-5.0) gm/dl Globulin (2.5-4.0) gm/dl Albumin/Globulin Ratio (0.9-2) Lipase (11-82) U/L Procalcitonin (0-0.5) ng/ml TSH (0.300-4.500) uIu/ml Urine Color Urine Appearance (Clear) Urine pH (4.5-7.5) Ur Specific [place] (1.000-1.030) Urine Protein (Negative) Urine Glucose (UA) (Negative) Urine Ketones (Negative) Urine Blood (Negative) Urine Nitrite (Negative) Urine Bilirubin (Negative) Urine Urobilinogen (Negative) Ur Leukocyte Esterase (Negative) Urine WBC (Auto) (0-5) /hpf Urine RBC (Auto) (0-4) /hpf U Hyaline Cast (Auto) (0-5) /lpf U Epithel Cells (Auto) (0-5) /lpf Urine Bacteria (Auto) (Negative) SARS-CoV-2, RNA, NAAT (NEGATIVE) Blood Type Antibody Screen Administered Medications Discontinued Medications Ceftazidime 2,000 mg/ Dextrose 60 mls @ 120 mls/hr IV NOW STA Stop: 11/26/21 17:52 Last Infusion: 11/26/21 18:16 Dose: 120 mls/hr Documented by: [id number] Admin: 11/26/21 17:46 Dose: 120 mls/hr Documented by: [id number] Vancomycin HCl 2,750 mg/ (Sodium Chloride) 555 mls @ 180 mls/hr IV ONE ONE Stop: 11/26/21 21:04 Last Admin: 11/26/21 18:33 Dose: 180 mls/hr Documented by: [id number] Imaging Data Radiologist's Impression: Chest X-Ray 11/26/21 16:46 XR chest 1V portable CLINICAL HISTORY: weakness, confusion, sob TECHNIQUE: Single frontal radiograph of the chest was obtained. Comparison: Comparison is made to chest one view 10/24/2021 FINDINGS: Exam is limited by underpenetration. Cardiomegaly is noted. Prominence and cephalization of the vasculature is seen. No evidence of pleural effusion or pneumothorax. IMPRESSION: Cardiomegaly and mild pulmonary edema. ACT 112: Negative or not required by law. Electronically signed by: Armand Tobar M.D. 11/26/2021 5:[address] 11/26/21 16:46 CT head/brain wo con CLINICAL HISTORY: confusion Technique: Contiguous axial CT images of the head were acquired from the base of the skull to the vertex without intravenous contrast administration. Images were viewed in brain, subdural and bone windows. Automated dose lowering techniques and/or adjustment according to patient size were utilized for this exam. Comparison: Comparison is made to CT head 07/30/2021 Findings: The ventricles, basal cisterns, and cerebral sulci are normal. There is no acute intracranial hemorrhage or evidence of acute territorial infarction. Neither mass effect, shift of the midline structures, nor abnormal extra-axial fluid collections are shown. Opacification of the bilateral maxillary sinuses and right greater than left ethmoid sinuses are seen. Soft tissue thickening is seen in the right frontal sinus. The orbits appear normal. There are no acute fractures of the calvaria or scalp swelling. Impression: 1. No acute intracranial hemorrhage, no evidence of acute territorial infarction or other acute intracranial disease process. 2. Sinus disease, progressed from prior exam. ACT 112: Negative or not required by law. Electronically signed by: Armand Tobar M.D. 11/26/2021 6:40 PM Discharge Plan Visit Data Chief Complaint: Illness Stated Complaint: LETHARGIC, ED Provider: Stan Aguero Discharge Problem: Somnolence, Fluid overload, Acute UTI, Respiratory failure Patient Disposition: Admitted As Inpatient Discharge Instructions Interventions: ED Discharge Assessment Last Done: 11/26/21 21:04 Forms Stand Alone Forms: [facility] [employer] Prescriptions Prescriptions: No Action ondansetron HCl [Zofran] 4 mg tablet 4 mg PO Q8 PRN (Reason: Nausea And Vomiting) Qty: 30 RF: 0 polyethylene glycol 3350 [Miralax] 17 gram powder in packet 17 g PO QAM RF: 0 nitroglycerin [Nitrostat] 0.4 mg tablet, sublingual 0.4 mg Sublingual DIRECTED PRN (Reason: CHEST PAIN) RF: 0 nystatin 100,000 unit/gram Powder 1 applic TOPICAL TID PRN (Reason: Skin Irritation) RF: 0 cyclobenzaprine 10 mg Tablet 10 mg PO BID PRN (Reason: Muscle Spasm) RF: 0 ipratropium-albuterol 0.5 mg-3 mg(2.5 mg base)/3 mL Solution For Nebulization 3 ml INHALATION Q6H PRN (Reason: Shortness Of Breath Or Wheezing) RF: 0 docusate sodium 100 mg Capsule 100 mg PO BID RF: 0 duloxetine 60 mg capsule,delayed release(DR/EC) 60 mg PO DAILY RF: 0 famotidine 20 mg tablet 20 mg PO DAILY RF: 0 methenamine hippurate 1 gram tablet 1 g PO DAILY RF: 0 fluticasone propionate 50 mcg/actuation spray,suspension 2 spray Intranasal DAILY RF: 0 aspirin [Ecotrin Low Strength] 81 mg tablet,delayed release (DR/EC) 81 mg PO QAM RF: 0 Spiriva with HandiHaler 18 mcg capsule, w/inhalation device 1 puff inhalation QAM RF: 0 finasteride 5 mg tablet 5 mg PO QAM RF: 0 tamsulosin [Flomax] 0.4 mg Capsule 0.4 mg PO QAM RF: 0 metoprolol succinate 50 mg Tablet Extended Release 24 Hr 75 mg PO BID RF: 0 spironolactone 25 mg Tablet 25 mg PO QAM RF: 0 atorvastatin 80 mg tablet 80 mg PO QPM RF: 0 sennosides [senna] 8.6 mg Tablet 8.6 mg PO DAILY PRN (Reason: Constipation) RF: 0 folic acid 1 mg Tablet 1 mg PO QAM RF: 0 furosemide [Lasix] 40 mg tablet 40 mg PO BID RF: 0 lorazepam 0.5 mg tablet 0.5 mg PO Q8 PRN (Reason: Anxiety) RF: 0 potassium chloride 20 mEq Tablet Extended Release 20 meq PO BID RF: 0 albuterol sulfate 90 mcg/actuation Hfa Aerosol Inhaler 2 puff INHALATION Q4 PRN (Reason: Dyspnea) RF: 0 omeprazole 20 mg Capsule,Delayed Release(Dr/Ec) 20 mg PO DAILYBB RF: 0 gabapentin 800 mg tablet 800 mg PO TID RF: 0 warfarin 5 mg tablet 2.5 - 5 mg PO DIRECTED RF: 0 buprenorphine HCl 8 mg tablet, sublingual 8 mg SUBLINGUAL TID RF: 0 isosorbide mononitrate 30 mg Tablet Extended Release 24 Hr 30 mg PO DAILY RF: 0 glipizide 10 mg tablet 10 mg PO BID RF: 0 Lantus Solostar U-100 Insulin 100 unit/mL (3 mL) Insulin Pen 50 unit SC HS 30 Days Qty: 15 RF: 3 urea [Ureacin-20] 20 % Cream 1 applic TOPICAL BID RF: 0 magnesium oxide 400 mg (241.3 mg magnesium) tablet 400 mg PO DAILY RF: 0 ferrous sulfate 325 mg (65 mg iron) Tablet 325 mg PO QAM RF: 0 hydroxyzine HCl 25 mg Tablet 25 mg PO QID PRN (Reason: Anxiety) RF: 0 insulin aspart U-100 [Novolog Flexpen U-100 Insulin] 100 unit/mL (3 mL) Insulin Pen 1 unit SUBCUT TIDM RF: 0 acetaminophen [Tylenol Extra Strength] 500 mg Tablet 1,000 mg PO Q8H PRN (Reason: pain) Qty: 50 RF: 0 benzonatate 100 mg Capsule 100 mg PO TID PRN (Reason: cough) Qty: 30 RF: 0 Lactinex 1 million cell tablet,chewable 1 tab PO TID Qty: 30 RF: 0 Referrals Referrals: Roberto Askew MD [Primary Care Provider] -
[2021-11-26 17:18] LABS: Appearance Urine Clear (Clear); Bacteria Urine Automated 1+ (Negative); Bilirubin Urine Negative (Negative); Blood Urine 3+ (Negative); Color Urine Yellow; Epithelial Cell Urine Auto >30 /lpf (0-5); Glucose Urine UA Negative (Negative); Ketones Urine Negative (Negative); Leukocyte Esterase Urine 2+ (Negative); Nitrite Urine Negative (Negative); RBC Urine Automated >30 /hpf (0-4); Specific Gravity Urine 1.016 (1.000-1.030); Urobilinogen Urine Negative (Negative); pH Urine >= 9.0 (4.5-7.5)
[2021-11-26 17:21] LABS: Basophils # (auto) 0.03 K/uL (0-0.2); Basophils % (auto) 0.2 %; Eosinophils # (auto) 0.33 K/uL (0-0.5); Eosinophils % (auto) 2.5 %; Hematocrit (blood only) 43.2 % (42-52); Hemoglobin 13.6 g/dL (14.0-18.0); Immature Granulocytes % (auto) 0.8 %; Lymphocytes # (auto) 1.53 K/uL (1.2-3.4); Lymphocytes % (auto) 11.5 %; Mean Corpuscular Hemoglobin 25.5 pg (25-34); Mean Corpuscular Hgb Conc 31.5 g/dL (32-36); Mean Corpuscular Volume 80.9 fL (80-100); Mean Platelet Volume 9.5 fL (7.4-10.4); Monocytes # (auto) 1.11 K/uL (0.11-0.59); Monocytes % (auto) 8.3 %; Neutrophils % (auto) 76.7 %; Platelet Count 371 K/uL (130-400); RDW Coefficient of Variation 18.6 % (11.5-14.5); RDW Standard Deviation 53.9 fL (36.4-46.3); Red Blood Count 5.34 M/uL (4.7-6.1)
[2021-11-26 17:22] LABS: Protein Urine 1+ (Negative)
--- NOTE | 2021-11-26 17:22 | XRay Report ---
XR chest 1V portable CLINICAL HISTORY: weakness, confusion, sob TECHNIQUE: Single frontal radiograph of the chest was obtained. Comparison: Comparison is made to chest one view 10/24/2021 FINDINGS: Exam is limited by underpenetration. Cardiomegaly is noted. Prominence and cephalization of the vascu lature is seen. No evidence of pleural effusion or pneumothorax. IMPRESSION: Cardiomegaly and mild pulmonary edema. ACT 112: Negative or not required by law. Electronically signed by: Armand Tobar M.D. 11/26/2021 5:20 PM
[2021-11-26 17:23] LABS: Base Excess VBG 17.4 mEq/L; HCO3 VBG 46 mmol/L; PCO2 VBG 70 mmHg (38-50); PO2 VBG 19 mmHg; pH VBG 7.43 (7.36-7.41)
[2021-11-26 17:24] LABS: Oxygen Saturation VBG < 60.0 %
[2021-11-26 17:31] LABS: INR 3.5 (0.9-1.1); Prothrombin Time 34.8 Seconds (9.0-12.0)
[2021-11-26] MEDS ORDERED: VANCOMYCIN HCL 2,750 MG in SODIUM CHLORIDE 0.9% 500 ML IV ONE (18:00)
--- NOTE | 2021-11-26 18:42 | CT Scan Report ---
CT head/brain wo con CLINICAL HISTORY: confusion Technique: Contiguous axial CT images of the head were acquired from the base of the skull to the radha rex without intravenous contrast administration. Images were viewed in brain, subdural and bone windo ws. Automated dose lowering techniques and/or adjustment according to patient size were utilized for this exam. Comparison: Comparison is made to CT head 07/30/2021 Findings: The ventricles, basal cisterns, and cerebral sulci are normal. There is no acute intracranial hemorrh age or evidence of acute territorial infarction. Neither mass effect, shift of the midline structures , nor abnormal extra-axial fluid collections are shown. Opacification of the bilateral maxillary sinuses and right greater than left ethmoid sinuses are seen . Soft tissue thickening is seen in the right frontal sinus. The orbits appear normal. There are no acute fractures of the calvaria or scalp swelling. Impression: 1. No acute intracranial hemorrhage, no evidence of acute territorial infarction or other acute intr acranial disease process. 2. Sinus disease, progressed from prior exam. ACT 112: Negative or not required by law. Electronically signed by: Armand Tobar M.D. 11/26/2021 6:40 PM
[2021-11-26 18:46] LABS: Alanine Aminotransferase 14 U/L (7-52); Albumin Globulin Ratio 0.9 (0.9-2); Albumin Level 3.6 gm/dl (3.4-5.0); Alkaline Phosphatase 115 U/L (34-104); Aspartate Aminotransferase 17 U/L (13-39); BUN Creatinine Ratio 18.5 (10-20); Bilirubin,Total 0.7 mg/dl (0.2-1.0); Blood Urea Nitrogen 17 mg/dl (6-23); Calcium 10.1 mg/dl (8.5-10.1); Carbon Dioxide > 45 mmol/L (21-32); Chloride 89 mmol/L (98-107); Creatine Kinase 100 U/L (30-223); Creatinine Clr Calc Pharmacy 167.1 ml/min; Est GFR (African American) 111.2 ml/min; Globulin 3.8 gm/dl (2.5-4.0); Glucose 139 mg/dl (70-99(Fasting)); Lipase 26 U/L (11-82); Magnesium 1.8 mg/dl (1.7-2.4); Potassium 3.2 mmol/L (3.5-5.1); Sodium 140 mmol/L (136-145); Total Protein 7.4 gm/dl (6.0-8.3); Troponin I < 0.03 ng/ml (0-0.04)
[2021-11-26] MEDS ORDERED: FUROSEMIDE 40 MG/4 ML VIAL IV ONE (19:02)
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
[2021-11-26] MEDS ORDERED: POTASSIUM CHLORIDE / WTR 10 MEQ/100 ML PLCT IV STA (20:22)
[2021-11-26 21:20] LABS: Amphetamines+Metham, Urine Neg (Neg); Barbiturates, Urine Neg (Neg); Benzodiazepine, Urine Neg (Neg); Cocaine, Urine Neg (Neg); MDMA (Ecstacy), Urine Neg (Neg); Methadone, Urine Neg (Neg); Opiate, Urine Neg (Neg); Phencyclidine, Urine Neg (Neg)
[2021-11-26] MEDS ORDERED: SENNA 8.6 MG TAB PO PRN (22:08)
[2021-11-26] MEDS ORDERED: POTASSIUM CHLORIDE CRTAB 20 MEQ TABCR PO SCH (22:08)
[2021-11-26] MEDS ORDERED: NITROGLYCERIN SL 0.4 MG/TAB TAB SL PRN (22:08)
[2021-11-26] MEDS ORDERED: ACETAMINOPHEN 325 MG TAB PO PRN (22:08)
[2021-11-26] MEDS ORDERED: PIPERACILL/TAZOBAC CONSULT ACTIVE PRN (22:10)
[2021-11-26 22:43] LABS: Base Excess ABG 16.1 mEq/L (-9-1.8); HCO3 ABG 43 mmol/L (19-24); Oxygen Saturation ABG 93.4 % (90-95); PCO2 ABG 59 mmHg (35-46); PO2 ABG 64 mmHg (80-95); pH ABG 7.48 (7.35-7.45)
[2021-11-26] MEDS ORDERED: XOPENEX/ATROVENT 1.25mg/0.5MG NEB COMBO NEB STA (22:43)
[2021-11-26 22:44] LABS: Allen Test Pos (Pos)
[2021-11-26] MEDS ORDERED: PIPERACILLIN/TAZOBACTAM 4.5 GM in DEXTROSE 5% 100 ML IV ONE (22:45)
[2021-11-26] MEDS ORDERED: IPRATROPIUM BROMIDE NEB SOLN 0.02% 2.5 ML VIAL INH STA (22:46)
[2021-11-26] MEDS ORDERED: LEVALBUTEROL 1.25MG/0.5ML NEB INH STA (22:46)
[2021-11-26] MEDS ORDERED: OLANZapine 10 MG/2.1 ML SDV IM ONE (23:15)
[2021-11-26] MEDS ORDERED: METOPROLOL TARTRATE 1 MG/ML VIAL IV STA (23:52)
[2021-11-26] MEDS ORDERED: ALBUMIN 25% 12.5 GM/50 ML VIAL IV ONE (23:52)
[2021-11-27] MEDS: METOPROLOL SUCC 25MG EXT REL TAB PO SCH ×3 (00:02→21:37)
[2021-11-27] MEDS: ATORVASTATIN 40 MG TAB PO SCH ×2 (00:02→21:36)
[2021-11-27] MEDS ORDERED: OLANZapine 10 MG/2.1 ML SDV IM STA ×3 (00:25→23:47)
[2021-11-27] MEDS ORDERED: MAGNESIUM SULFATE / D5W 1 GM/100 ML BAG IV ONE (01:00)
[2021-11-27] MEDS: POTASSIUM CHLORIDE / WTR 10 MEQ/100 ML PLCT IV SCH ×8 (01:29→10:00)
[2021-11-27] MEDS: PIPERACILLIN/TAZOBACTAM 4.5 GM in DEXTROSE 5% 100 ML IV SCH ×3 (04:37→20:03)
[2021-11-27] MEDS: OLANZapine 10 MG/2.1 ML SDV IM PRN ×3 (06:26→23:16)
[2021-11-27] MEDS: PANTOprazole 40 MG TAB PO SCH (06:32)
[2021-11-27 07:43] LABS: Basophils # (auto) 0.02 K/uL (0-0.2); Basophils % (auto) 0.2 %; Eosinophils # (auto) 0.28 K/uL (0-0.5); Eosinophils % (auto) 2.6 %; Hematocrit (blood only) 37.5 % (42-52); Immature Granulocytes # (auto) 0.05 K/uL (0.00-0.02); Immature Granulocytes % (auto) 0.5 %; Lymphocytes # (auto) 1.84 K/uL (1.2-3.4); Lymphocytes % (auto) 17.2 %; Mean Corpuscular Hemoglobin 25.5 pg (25-34); Mean Corpuscular Volume 79.6 fL (80-100); Monocytes # (auto) 1.07 K/uL (0.11-0.59); Neutrophils # (auto) 7.44 K/uL (1.4-6.5); Neutrophils % (auto) 69.5 %; Platelet Count 364 K/uL (130-400); RDW Coefficient of Variation 18.7 % (11.5-14.5); RDW Standard Deviation 54.3 fL (36.4-46.3); Red Blood Count 4.71 M/uL (4.7-6.1)
[2021-11-27 07:54] LABS: INR 2.6 (0.9-1.1)
[2021-11-27 08:10] LABS: BUN Creatinine Ratio 15.1 (10-20); Calcium 8.9 mg/dl (8.5-10.1); Creatinine Clr Calc Pharmacy 168.7 ml/min; Est GFR (African American) 109.8 ml/min; Est GFR (Non-African American) 94.7 ml/min; Potassium 2.9 mmol/L (3.5-5.1)
--- NOTE | 2021-11-27 08:40 | Electrocardiogram Report ---
Test Reason : Blood Pressure : / mmHG Vent. Rate : 091 BPM Atrial Rate : 091 BPM P-R Int : 166 ms QRS Dur : 114 ms QT Int : 372 ms P-R-T Axes : 088 028 182 degrees QTc Int : 457 ms Normal sinus rhythm Incomplete right bundle branch block Diffuse Nonspecific ST abnormality Abnormal ECG When compared with ECG of 24-OCT-2021 17:54, Nonspecific ST abnormality now present Confirmed by Da Browning ([id number]) on 11/27/2021 8:39:51 AM Referred By: REFERRED SELF Confirmed By:Da Browning
[2021-11-27] MEDS: FOLIC ACID 1 MG TAB PO SCH (08:44)
[2021-11-27] MEDS: FLUTICASONE PROPIONATE NA SPR 16 GM BTL SCH (08:44)
[2021-11-27] MEDS: POLYETHYLENE (MIRALAX) 17 GM PACK PO SCH (08:44)
[2021-11-27] MEDS: ADVANCED PROBIOTIC 1250 MG CAPSULE PO SCH (08:44)
[2021-11-27] MEDS: ISOSORBIDE MONO EXTENDED REL 30 MG TABCR PO SCH (08:44)
[2021-11-27] MEDS: FERROUS SULFATE 325 MG TAB PO SCH (08:44)
[2021-11-27] MEDS: FAMOTIDINE 20 MG TAB PO SCH (08:44)
[2021-11-27] MEDS: ASPIRIN 81 MG ECTAB PO SCH (08:44)
[2021-11-27] MEDS: SPIRONOLACTONE 25 MG TAB PO SCH (08:45)
[2021-11-27] MEDS: TAMSULOSIN HCL 0.4 MG CAP PO SCH (08:45)
[2021-11-27] MEDS: UMECLIDINIUM BROMIDE 62.5MCG/BLISTER 7 PUFFS/INHALER INH SCH (08:45)
[2021-11-27] MEDS: POTASSIUM CHLORIDE CRTAB 20 MEQ TABCR PO SCH ×2 (08:45→16:33)
[2021-11-27] MEDS: INSULIN GLARGINE SOLOSTAR 100 UNITS/ML 3 ML PEN SC SCH (08:46)
[2021-11-27] MEDS ORDERED: PIPERACILL/TAZOBAC CONSULT ACTIVE PRN (09:00)
[2021-11-27] MEDS: FUROSEMIDE 40 MG/4 ML VIAL IV SCH ×2 (09:05→21:36)
[2021-11-27 18:39] LABS: Base Excess ABG 15.3 mEq/L (-9-1.8); HCO3 ABG 41 mmol/L (19-24); Oxygen Saturation ABG 94.2 % (90-95); PCO2 ABG 53 mmHg (35-46); PO2 ABG 68 mmHg (80-95)
[2021-11-27 18:44] LABS: Allen Test Pos (Pos)
[2021-11-27] MEDS ORDERED: POTASSIUM CHLORIDE CRTAB 20 MEQ TABCR PO STA (20:15)
--- NOTE | 2021-11-27 20:29 | Hospitalist Progress Note ---
Date of Service November 27, 2021 Assessment & Plan (1) Encephalopathy: Plan: Metabolic encephalopathy Possible related to UTI or elevating CO2 CT head showed no acute intracranial hemorrhage No focal neuro deficit Zyprexa administered for agitation Continue monitor closely UTI UTI due to indwelling Lloyd catheter, a complication of care Received Vanco and Zosyn on admission Urine cx grew corynebacterium urealyticum Continue IV Zosyn for now Blood cx no growth chronic R heart failure with preserved EF BNP on admission 41 Continue Lasix 40mg BID IV Continue Spironolactone Continue monitor BMP Chronic pain syndrome Suboxone on hold due to confusion and lethargy Will resume once metal status improves COPD (chronic obstructive pulmonary disease): Chronic respiratory failure: Pt was placed on Bipap on admission ABG wth pH 7.50/ pCO2 53/ HCO3 41/ PO2 68 Has been on home oxygen with 4 L to maintain saturation Continue 4L oxygen NC Continue monitor closely Hypokalemia Potassium 2.9 today K replaced Continue monitor BMP BPH (benign prostatic hyperplasia): History of prostrate hypertrophy and has a indwelling Lloyd catheter History of recurrent catheter associated UTI Will make sure catheter exchange before complete abx course Continue flomax Seizure-like activity: Stable History of pulmonary embolism: Continue Coumadin with INR 2.6 Type 2 diabetes mellitus Most recent Hba1c 6.7 Glipize on hold Continue Lantus Continue monitor BP DVT prophylaxis On Coumadin with INR at goal Full code Will try to call girlfriend (Ms. Estrella Ko, contact #[phone] ) over the phone to provide with update Admission and Anticipated Discharge Date Admission Date: November 26, 2021 Subjective Patient was seen and examined for follow-up confusion and lethargy Lying in bed with no acute distress confuse Patient was very agitated and combative and was placed on restraint He wanted the cpap/bipap mask off He was able to say my name when i walked in the room Review of Systems Review of Systems: All systems reviewed & are unremarkable except as noted in Subjective Physical Exam Physical Exam: General- +confused and agitated Head- atraumatic ENT- oropharynx clear Neck- supple, no JVD Lungs- +diminished breath sound Heart- regular rhythm; no murmur Abdomen- normal bowel sounds, soft, nontender Extremities- no calf tenderness, +edema Neuro- +confused and agitated, no facial palsy; no dysarthria Skin- warm & dry Results & Data Results & Data ([facility]) Vital Signs (Past 12 Hours) Vital Signs Temp Pulse Pulse Resp BP BP Pulse Ox 11/27/21 19:52 37.0 C 89 20 139/63 95 11/27/21 16:15 104 H 11/27/21 16:00 11/27/21 13:12 36.9 C 94 H 20 107/63 92 11/27/21 13:00 91 H 11/27/21 11:49 36.6 C 91 H 24 166/81 H 92 11/27/21 11:15 88 20 99 11/27/21 08:36 36.5 C 75 18 146/79 H 94 Pulse Ox 11/27/21 19:52 11/27/21 16:15 11/27/21 16:00 91 11/27/21 13:12 11/27/21 13:00 11/27/21 11:49 11/27/21 11:15 11/27/21 08:36
[2021-11-27] MEDS ORDERED: WARFARIN SOD 3 MG TAB PO ONE (21:23)
[2021-11-27 21:58] LABS: INR 2.1 (0.9-1.1); Prothrombin Time 21.6 Seconds (9.0-12.0)
[2021-11-28] MEDS: PIPERACILLIN/TAZOBACTAM 4.5 GM in DEXTROSE 5% 100 ML IV SCH ×3 (03:39→19:30)
[2021-11-28] MEDS: PANTOprazole 40 MG TAB PO SCH (05:38)
[2021-11-28] MEDS: OLANZapine 10 MG/2.1 ML SDV IM PRN ×2 (07:25→15:50)
--- NOTE | 2021-11-28 08:12 | XRay Report ---
XR chest 1V portable HISTORY: Hypoxia. COMPARISON: Chest 11/26/2021. FINDINGS: There are low lung volumes. The heart remains enlarged. There is right greater than left in terstitial/vascular thickening. This favors mild asymmetric pulmonary edema. Hazy appearance to the r ight upper lobe may be due to the alveolar component of the pulmonary edema or developing pneumonia. There is an old, healed left clavicle fracture. IMPRESSION: There is right greater than left interstitial/vascular thickening. This favors mild asymmetric pulmon uziel edema. Hazy appearance to the right upper lobe may be due to the alveolar component of the pulmon uziel edema or developing pneumonia. ACT 112: Negative or not required by law. Electronically signed by: Vidal Keller M.D. 11/28/2021 8:11 AM
[2021-11-28] MEDS ORDERED: buprenorphine HCL 8 MG SUBL SL SCH (08:15)
[2021-11-28] MEDS: FOLIC ACID 1 MG TAB PO SCH (08:55)
[2021-11-28] MEDS: TAMSULOSIN HCL 0.4 MG CAP PO SCH (08:55)
[2021-11-28] MEDS: ADVANCED PROBIOTIC 1250 MG CAPSULE PO SCH (08:55)
[2021-11-28] MEDS: SPIRONOLACTONE 25 MG TAB PO SCH (08:55)
[2021-11-28] MEDS: ASPIRIN 81 MG ECTAB PO SCH (08:55)
[2021-11-28] MEDS: FERROUS SULFATE 325 MG TAB PO SCH (08:55)
[2021-11-28] MEDS: METOPROLOL SUCC 25MG EXT REL TAB PO SCH ×2 (08:56→21:36)
[2021-11-28] MEDS: FAMOTIDINE 20 MG TAB PO SCH (08:56)
[2021-11-28] MEDS: POLYETHYLENE (MIRALAX) 17 GM PACK PO SCH (08:56)
[2021-11-28] MEDS: ISOSORBIDE MONO EXTENDED REL 30 MG TABCR PO SCH (08:56)
[2021-11-28] MEDS: FLUTICASONE PROPIONATE NA SPR 16 GM BTL SCH (08:56)
[2021-11-28] MEDS: UMECLIDINIUM BROMIDE 62.5MCG/BLISTER 7 PUFFS/INHALER INH SCH (08:57)
[2021-11-28] MEDS: INSULIN GLARGINE SOLOSTAR 100 UNITS/ML 3 ML PEN SC SCH (08:57)
[2021-11-28] MEDS: POTASSIUM CHLORIDE CRTAB 20 MEQ TABCR PO SCH ×2 (08:57→21:35)
[2021-11-28] MEDS ORDERED: VANCOMYCIN CONSULT ACTIVE PRN (09:18)
[2021-11-28] MEDS ORDERED: VANCOMYCIN HCL 2,750 MG in SODIUM CHLORIDE 0.9% 500 ML IV ONE (09:30)
[2021-11-28 09:51] LABS: Hematocrit (blood only) 39.7 % (42-52); Hemoglobin 12.6 g/dL (14.0-18.0); Mean Corpuscular Hemoglobin 25.1 pg (25-34); Mean Corpuscular Hgb Conc 31.7 g/dL (32-36); Mean Corpuscular Volume 79.2 fL (80-100); Mean Platelet Volume 9.3 fL (7.4-10.4); Platelet Count 364 K/uL (130-400); RDW Standard Deviation 54.4 fL (36.4-46.3); Red Blood Count 5.01 M/uL (4.7-6.1); White Blood Count 11.58 K/uL (4.8-10.8)
[2021-11-28 10:16] LABS: INR 2.1 (0.9-1.1); Prothrombin Time 21.7 Seconds (9.0-12.0)
[2021-11-28 10:19] LABS: BUN Creatinine Ratio 11.3 (10-20); Calcium 9.8 mg/dl (8.5-10.1); Creatinine Clr Calc Pharmacy 148.1 ml/min; Est GFR (African American) 93.7 ml/min; Est GFR (Non-African American) 80.9 ml/min
--- NOTE | 2021-11-28 11:26 | Pharmacy Report ---
Pharmacy Vanc AUC Short Note - Date of Service November 28, 2021 - Assessment & Plan Assessment 51 year old M receiving Zosyn, now ordered vancomycin for treatment of complicated UTI. Pertinent microbiologic data includes: urine culture (11/26) growing Corynebacterium urealyticum. Treatment of choice for this pathogen is vancomycin. Patient with worsening confusion overnight, possibly related to untreated infection. Leukocytosis noted (11.6 K today). Pertinent PMH includes, morbid obesity, chronic indwelling fontaine, recurrent UTI, and recent hospitalization in October 2021. Of note, patient was ordered loading dose of vancomycin on 11/26, but then medication was discontinued. WBC improvement on 11/27 may have been related to that dose of vancomycin. Will need to follow vanco closely in light of BMI of 60 and noted increase in SCr (0.93 -> 1.06 mg/dL) Day # 1 of vancomycin therapy. Plan Vancomycin * [place] 2750 mg IV x 1 given this AM * AUC/JERONIMO is the preferred PK/PD target for vancomycin * AUC guided dosing is effective and associated with decreased risk of nephrotoxicity compared to traditional trough targets * Ordered dose of 1500 mg IV q12h is predicted to achieve target AUC/JERONIMO of 400- 600 mg/L.hr and may be associated with a 10 % risk of nephrotoxicity * Trough level ordered for Thursday 11/30 prior to 4th maintenance dose * Obtain trough earlier if further evidence of MAHAMED Zosyn * 4.5 g IV q8h - no change, appropriate for BMI Pharmacy will continue to follow and will adjust dose/frequency as necessary. Thank you.
[2021-11-28] MEDS: buprenorphine HCL 8 MG SUBL SL SCH (14:37)
[2021-11-28] MEDS ORDERED: FUROSEMIDE 40 MG/4 ML VIAL IV ONE (16:36)
[2021-11-28] MEDS ORDERED: POTASSIUM CHLORIDE CRTAB 20 MEQ TABCR PO STA (16:48)
--- NOTE | 2021-11-28 16:48 | Hospitalist Progress Note ---
Date of Service November 28, 2021 Assessment & Plan (1) Encephalopathy: Plan: Metabolic encephalopathy Possible related to UTI vs Suboxone ka[place] CT head showed no acute intracranial hemorrhage No focal neuro deficit Zyprexa administered for agitation Continue monitor closely UTI UTI due to indwelling Fontaine catheter, a complication of care Received Vanco and Zosyn on admission Urine cx grew corynebacterium urealyticum Continue IV Zosyn fand IV vanco added If fontaine did not exchange on admission, will encourage staff to change it Blood cx no growth Chronic R heart failure with preserved EF BNP on admission 41 Continue Lasix 40mg IV Continue Spironolactone Continue monitor BMP Chronic pain syndrome Spoke to and said pt last dose of soboxone was on Wednesday morning He seems to have suboxone withdrawal since he confused and agitated Spoke to pain management that recommended to resume his Suboxone COPD (chronic obstructive pulmonary disease): Chronic respiratory failure: Pt was placed on Bipap on admission ABG wth pH 7.50/ pCO2 53/ HCO3 41/ PO2 68 Has been on home oxygen with 4 L to maintain saturation Continue 4L oxygen [place] Continue monitor closely Hypokalemia Potassium 3 today K replaced Continue monitor BMP BPH (benign prostatic hyperplasia): History of prostrate hypertrophy and has a indwelling Fontaine catheter History of recurrent catheter associated UTI Will make sure catheter exchange before complete abx course Continue flomax Seizure-like activity: Stable History of pulmonary embolism: Continue Coumadin with INR 2.1 today Type 2 diabetes mellitus Most recent Hba1c 6.7 Glipizide on hold Continue Lantus Continue monitor BP DVT prophylaxis On Coumadin with INR at goal Full code Spoke to girlfriend (Ms. Estrella Ko, contact #[phone] ) over the phone to provide with update Admission and Anticipated Discharge Date Admission Date: November 26, 2021 Subjective Patient was seen and examined for follow-up confusion and agitated This morning pt was very agitated an trying to leave. Due to his and the staff safety he was placed on restraint I called his and she said that patient last dose of suboxone was Wednesday I tried to call his doctor at the suboxone clinic, unfortunately noone answered and left VM The symptoms that he had seems to be suboxone withdrawal I spoke to pain management Dr. Cao that recommended to resume his Suboxne Few hrs after taking the Suboxone his symptoms improve and he was off the restraint He said that he feels that he having hard time to breath Review of Systems Review of Systems: All systems reviewed & are unremarkable except as noted in Subjective Physical Exam Physical Exam: General- +confused and agitated Head- atraumatic ENT- oropharynx clear Neck- supple, no JVD Lungs- +diminished breath sound Heart- regular rhythm; no murmur Abdomen- normal bowel sounds, soft, nontender Extremities- no calf tenderness, +edema Neuro- +confused and agitated, no facial palsy; no dysarthria Skin- warm & dry Results & Data Results & Data ([facility]) Vital Signs (Past 12 Hours) Vital Signs Temp Pulse Pulse Resp BP Pulse Ox 11/28/21 16:31 92 H 27 H 92 11/28/21 15:28 36.4 C L 93 H 18 151/51 H 92 11/28/21 05:36 36.8 C 90 20 122/62 99
[2021-11-28] MEDS ORDERED: buprenorphine HCL 2 MG SUBL SL SCH (21:00)
[2021-11-28] MEDS: ATORVASTATIN 40 MG TAB PO SCH (21:36)
[2021-11-28] MEDS: VANCOMYCIN HCL 1,500 MG in SODIUM CHLORIDE 0.9% 500 ML IV SCH (23:50)
[2021-11-29] MEDS: PIPERACILLIN/TAZOBACTAM 4.5 GM in DEXTROSE 5% 100 ML IV SCH ×3 (03:42→19:13)
[2021-11-29] MEDS: PANTOprazole 40 MG TAB PO SCH (05:30)
[2021-11-29 06:05] LABS: Hematocrit (blood only) 37.2 % (42-52); Hemoglobin 11.9 g/dL (14.0-18.0); Mean Corpuscular Hemoglobin 25.5 pg (25-34); Mean Corpuscular Volume 79.7 fL (80-100); Platelet Count 366 K/uL (130-400); RDW Coefficient of Variation 19.4 % (11.5-14.5); RDW Standard Deviation 56.1 fL (36.4-46.3); Red Blood Count 4.67 M/uL (4.7-6.1); White Blood Count 10.55 K/uL (4.8-10.8)
[2021-11-29 06:24] LABS: BUN Creatinine Ratio 10.1 (10-20); Calcium 9.5 mg/dl (8.5-10.1); Creatinine Clr Calc Pharmacy 144.1 ml/min; Est GFR (African American) 90.6 ml/min; Est GFR (Non-African American) 78.2 ml/min
[2021-11-29] MEDS: FOLIC ACID 1 MG TAB PO SCH (08:30)
[2021-11-29] MEDS: METOPROLOL SUCC 25MG EXT REL TAB PO SCH ×2 (08:30→21:20)
[2021-11-29] MEDS: FERROUS SULFATE 325 MG TAB PO SCH (08:31)
[2021-11-29] MEDS: ASPIRIN 81 MG ECTAB PO SCH (08:31)
[2021-11-29] MEDS: TAMSULOSIN HCL 0.4 MG CAP PO SCH (08:31)
[2021-11-29] MEDS: buprenorphine HCL 8 MG SUBL SL SCH ×3 (08:32→21:21)
[2021-11-29] MEDS: ISOSORBIDE MONO EXTENDED REL 30 MG TABCR PO SCH (08:32)
[2021-11-29] MEDS: SPIRONOLACTONE 25 MG TAB PO SCH (08:32)
[2021-11-29] MEDS: FAMOTIDINE 20 MG TAB PO SCH (08:32)
[2021-11-29] MEDS: ADVANCED PROBIOTIC 1250 MG CAPSULE PO SCH (08:33)
[2021-11-29] MEDS: FLUTICASONE PROPIONATE NA SPR 16 GM BTL SCH (08:33)
[2021-11-29] MEDS: INSULIN GLARGINE SOLOSTAR 100 UNITS/ML 3 ML PEN SC SCH (08:34)
[2021-11-29] MEDS: POLYETHYLENE (MIRALAX) 17 GM PACK PO SCH (08:35)
[2021-11-29] MEDS: UMECLIDINIUM BROMIDE 62.5MCG/BLISTER 7 PUFFS/INHALER INH SCH (08:39)
[2021-11-29] MEDS: POTASSIUM CHLORIDE CRTAB 20 MEQ TABCR PO SCH ×2 (08:39→15:53)
[2021-11-29] MEDS ORDERED: POTASSIUM CHLORIDE CRTAB 20 MEQ TABCR PO STA (08:45)
[2021-11-29] MEDS: FUROSEMIDE 40 MG/4 ML VIAL IV SCH ×2 (09:43→15:50)
[2021-11-29] MEDS: VANCOMYCIN HCL 1,500 MG in SODIUM CHLORIDE 0.9% 500 ML IV SCH ×2 (10:55→23:53)
[2021-11-29] MEDS: ONDANSETRON INJ 2 MG/ML 2 ML VIAL IV PRN ×2 (12:19→21:21)
[2021-11-29] MEDS ORDERED: PROMETHAZINE HCL 12.5 MG in SODIUM CHLORIDE 0.9% 50 ML IV STA (15:35)
--- NOTE | 2021-11-29 15:46 | Hospitalist Progress Note ---
Date of Service November 29, 2021 Assessment & Plan (1) Encephalopathy: Plan: Metabolic encephalopathy Possible related to UTI vs Suboxone withhenrywal CT head showed no acute intracranial hemorrhage No focal neuro deficit Zyprexa administered for agitation Continue monitor closely Resolved UTI UTI due to indwelling Fontaine catheter, a complication of care Received Vanco and Zosyn on admission Urine cx grew corynebacterium urealyticum Continue IV Zosyn and IV vanco for now If fontaine did not exchange on admission, will encourage staff to change it Blood cx no growth Chronic R heart failure with preserved EF BNP on admission 41 Continue Lasix 40mg IV Continue Spironolactone Continue monitor BMP Chronic pain syndrome Spoke to and said pt last dose of soboxone was on Wednesday morning He seems to have suboxone withdrawal since he confused and agitated Spoke to pain management that recommended to resume his Suboxone Stable COPD (chronic obstructive pulmonary disease): Chronic respiratory failure: Pt was placed on Bipap on admission ABG wth pH 7.50/ pCO2 53/ HCO3 41/ PO2 68 Has been on home oxygen with 4 L to maintain saturation Currently on 2L oxygen [place] Continue monitor closely Hypokalemia Potassium 3 today K replaced Continue monitor BMP BPH (benign prostatic hyperplasia): History of prostrate hypertrophy and has a indwelling Fontaine catheter History of recurrent catheter associated UTI Will make sure catheter exchange before complete abx course Will discuss with urolology on Wednesday about his fontaine cath since pt has it for 2 hrs Pt is interested on a voiding trial Continue Flomax Seizure-like activity: Stable History of pulmonary embolism: Continue Coumadin with INR 2.1 today Type 2 diabetes mellitus Most recent Hba1c 6.7 Glipizide on hold Continue Lantus Continue monitor BP DVT prophylaxis On Coumadin with INR at goal Full code Spoke to girlfriend (Ms. Estrella Ko, contact #[phone] ) over the phone to provide with update Admission and Anticipated Discharge Date Admission Date: November 26, 2021 Subjective Patient was seen and examined for follow-up of confusion and agitated Sitting in chair with no acute distress Pt is back to his baseline this morning ( Mental status is back). His appetite is back He wants to speak to urology to discuss about his option since he has the fontaine cath for more than 2 years He had some nausea early Denies any chest pain, palpitation, dizziness and SOB Review of Systems Review of Systems: All systems reviewed & are unremarkable except as noted in Subjective Physical Exam Physical Exam: General- +confused and agitated Head- atraumatic ENT- oropharynx clear Neck- supple, no JVD Lungs- +diminished breath sound Heart- regular rhythm; no murmur Abdomen- normal bowel sounds, soft, nontender Extremities- no calf tenderness, +edema Neuro- +confused and agitated, no facial palsy; no dysarthria Skin- warm & dry Results & Data Results & Data ([facility]) Vital Signs (Past 12 Hours) Vital Signs Temp Pulse Resp BP Pulse Ox 11/29/21 15:21 36.7 C 83 22 155/72 H 95 11/29/21 12:28 36.5 C 80 22 130/72 91 11/29/21 07:00 36.7 C 80 20 155/84 H 96
[2021-11-29] MEDS: buprenorphine HCL 2 MG SUBL SL SCH (15:49)
[2021-11-29] MEDS: WARFARIN SOD 5 MG TAB PO SCH (15:50)
[2021-11-29] MEDS: LORazepam 0.5 MG TAB PO PRN (17:57)
[2021-11-29] MEDS ORDERED: GLUCOSE 40% GEL 15 GM TUBE PO PRN (19:28)
[2021-11-29] MEDS ORDERED: GLUCAGON FOR INJ 1 MG VIAL SQ PRN (19:28)
[2021-11-29] MEDS ORDERED: CARBOHYDRATES FOR HYPOGLYCEMIA PO PRN (19:28)
[2021-11-29] MEDS ORDERED: DEXTROSE 50% 50 ML SYRINGE IV PRN (19:28)
[2021-11-29] MEDS ORDERED: GLUCOSE 10 TABS/TUBE PO PRN (19:28)
[2021-11-29] MEDS: INSULIN ASPART PER UNIT SC SCH (19:57)
[2021-11-29] MEDS: guaiFENesin 600 MG TABCR PO SCH (19:58)
[2021-11-29] MEDS: ATORVASTATIN 40 MG TAB PO SCH (21:14)
[2021-11-30] MEDS ORDERED: PROMETHAZINE HCL 12.5 MG in SODIUM CHLORIDE 0.9% 50 ML IV PRN (00:04)
[2021-11-30] MEDS: DOCUSATE SODIUM/SENNA 50/8.6MG TAB PO SCH ×3 (01:00→20:51)
[2021-11-30] MEDS: LORazepam 0.5 MG TAB PO PRN ×2 (03:40→18:20)
[2021-11-30] MEDS: PIPERACILLIN/TAZOBACTAM 4.5 GM in DEXTROSE 5% 100 ML IV SCH ×3 (04:09→20:52)
[2021-11-30] MEDS: PANTOprazole 40 MG TAB PO SCH (06:24)
[2021-11-30 07:21] LABS: INR 2.2 (0.9-1.1); Prothrombin Time 22.6 Seconds (9.0-12.0)
[2021-11-30 07:42] LABS: BUN Creatinine Ratio 9.5 (10-20); Calcium 8.5 mg/dl (8.5-10.1); Creatinine Clr Calc Pharmacy 124.2 ml/min; Est GFR (Non-African American) 65.6 ml/min; Potassium 3.2 mmol/L (3.5-5.1)
[2021-11-30] MEDS: INSULIN ASPART PER UNIT SC SCH ×4 (08:14→20:49)
[2021-11-30] MEDS: METOPROLOL SUCC 25MG EXT REL TAB PO SCH ×2 (08:17→20:50)
[2021-11-30] MEDS: FAMOTIDINE 20 MG TAB PO SCH (08:18)
[2021-11-30] MEDS: ASPIRIN 81 MG ECTAB PO SCH (08:18)
[2021-11-30] MEDS: FERROUS SULFATE 325 MG TAB PO SCH (08:19)
[2021-11-30] MEDS: ADVANCED PROBIOTIC 1250 MG CAPSULE PO SCH (08:19)
[2021-11-30] MEDS: FOLIC ACID 1 MG TAB PO SCH (08:20)
[2021-11-30] MEDS: SPIRONOLACTONE 25 MG TAB PO SCH (08:20)
[2021-11-30] MEDS: TAMSULOSIN HCL 0.4 MG CAP PO SCH (08:20)
[2021-11-30] MEDS: ISOSORBIDE MONO EXTENDED REL 30 MG TABCR PO SCH (08:20)
[2021-11-30] MEDS: UMECLIDINIUM BROMIDE 62.5MCG/BLISTER 7 PUFFS/INHALER INH SCH (08:21)
[2021-11-30] MEDS: FLUTICASONE PROPIONATE NA SPR 16 GM BTL SCH (08:21)
[2021-11-30] MEDS: FUROSEMIDE 40 MG/4 ML VIAL IV SCH ×2 (08:22→16:30)
[2021-11-30] MEDS: guaiFENesin 600 MG TABCR PO SCH ×2 (08:23→20:51)
[2021-11-30] MEDS: POLYETHYLENE (MIRALAX) 17 GM PACK PO SCH (08:24)
[2021-11-30] MEDS: INSULIN GLARGINE SOLOSTAR 100 UNITS/ML 3 ML PEN SC SCH (08:24)
[2021-11-30] MEDS: buprenorphine HCL 8 MG SUBL SL SCH ×2 (08:25→21:06)
[2021-11-30] MEDS: POTASSIUM CHLORIDE CRTAB 20 MEQ TABCR PO SCH ×2 (08:25→16:30)
[2021-11-30] MEDS ORDERED: POTASSIUM CHLORIDE 10 MEQ TABCR PO STA (10:00)
[2021-11-30] MEDS ORDERED: VANCOMYCIN TROUGH ONE (10:30)
[2021-11-30] MEDS: VANCOMYCIN HCL 1,500 MG in SODIUM CHLORIDE 0.9% 500 ML IV SCH (10:47)
--- NOTE | 2021-11-30 12:11 | Pharmacy Report ---
Pharmacy Vanc AUC Short Note - Date of Service November 30, 2021 - Assessment & Plan Assessment 51 year old M receiving IV vancomycin for treatment of complicated UTI. Pertinent microbiologic data includes: urine culture growing corynebacterium urealyticum; blood culture shows no growth to date. Day #3 of IV vancomycin therapy. Plan Vancomycin * AUC/JERONIMO is the preferred PK/PD target for vancomycin * AUC guided dosing is effective and associated with decreased risk of nephrotoxicity compared to traditional trough targets * Vancomycin 1500 mg IV q12h resulted in a trough of 20.3 and AUC above the recommended range * Trough level of 14.7 mcg/mL is predicted to achieve target AUC/JERONIMO of 400-600 mg/L.hr and may be associated with a 10 % risk of nephrotoxicity * Change to 1250 mg IV every 12 hours * Trough or random level ordered for: 12/02/21 Zosyn * 4.5g IV q8h - broad coverage due to recent hospitalization in October and recurrent UTI Pharmacy will continue to follow and will adjust dose/frequency as necessary. Thank you.
[2021-11-30] MEDS: buprenorphine HCL 2 MG SUBL SL SCH (13:56)
[2021-11-30] MEDS: WARFARIN SOD 5 MG TAB PO SCH (16:30)
[2021-11-30] MEDS: ALBUT/IPRATROP 3MG/0.5MG NEB 3 ML VIAL NEB PRN (19:21)
--- NOTE | 2021-11-30 19:45 | Hospitalist Progress Note ---
Date of Service November 30, 2021 Assessment & Plan (1) Encephalopathy: Plan: Metabolic encephalopathy Possible related to UTI vs Suboxone withhenrywal CT head showed no acute intracranial hemorrhage No focal neuro deficit Zyprexa administered for agitation Continue monitor closely Resolved UTI UTI due to indwelling Fontaine catheter, a complication of care Received Vanco and Zosyn on admission Urine cx grew corynebacterium urealyticum Continue IV Zosyn and IV vanco for now If fontaine did not exchange on admission, will encourage staff to change it Blood cx no growth Chronic R heart failure with preserved EF BNP on admission 41 Continue Lasix 40mg IV BID Continue Spironolactone Continue monitor BMP Chronic pain syndrome Spoke to and said pt last dose of soboxone was on Wednesday morning He seems to have suboxone withdrawal since he confused and agitated Spoke to pain management that recommended to resume his Suboxone Stable COPD (chronic obstructive pulmonary disease): Chronic respiratory failure: Pt was placed on Bipap on admission ABG wth pH 7.50/ pCO2 53/ HCO3 41/ PO2 68 Has been on home oxygen with 4 L to maintain saturation Currently on 2L oxygen [place] Continue monitor closely Hypokalemia Potassium 3.2 today K replaced Continue monitor BMP BPH (benign prostatic hyperplasia): History of prostrate hypertrophy and has a indwelling Fontaine catheter History of recurrent catheter associated UTI Will make sure catheter exchange before complete abx course Will discuss with urolology on Wednesday about his fontaine cath since pt has it for 2 hrs Pt is interested on a voiding trial, will do voiding trial Continue Flomax Seizure-like activity: Stable History of pulmonary embolism: Continue Coumadin with INR 2.2 today Type 2 diabetes mellitus Most recent Hba1c 6.7 Glipizide on hold Continue Lantus Continue monitor BP DVT prophylaxis On Coumadin with INR at goal Full code Spoke to girlfriend about a day ago (Eboni Estrella Stefani, contact #[phone] ) over the phone to provide with update Admission and Anticipated Discharge Date Admission Date: November 26, 2021 Subjective Patient was seen and examined for follow-up of confusion and agitated Sitting in chair with no acute distress Pt is back to his baseline this morning ( Mental status is back). He wants to speak to urology to discuss about his option since he has the fontaine cath for more than 2 years Denies any chest pain, palpitation, dizziness and SOB Review of Systems Review of Systems: All systems reviewed & are unremarkable except as noted in Subjective Physical Exam Physical Exam: General- no acute distress Head- atraumatic ENT- oropharynx clear Neck- supple, no JVD Lungs- +diminished breath sound Heart- regular rhythm; no murmur Abdomen- normal bowel sounds, soft, nontender Extremities- no calf tenderness, +edema Neuro- AAOx3, no facial palsy; no dysarthria, move all 4 extremities Skin- warm & dry Results & Data Results & Data ([facility]) Vital Signs (Past 12 Hours) Vital Signs Temp Pulse Resp BP Pulse Ox 11/30/21 19:22 77 18 96 11/30/21 15:10 36.6 C 82 22 120/62 98 11/30/21 12:08 36.5 C 79 22 132/76 97 11/30/21 07:53 36.6 C 80 22 132/60 96
[2021-11-30] MEDS: ATORVASTATIN 40 MG TAB PO SCH (20:52)
[2021-11-30] MEDS: GABAPENTIN 800 MG TAB PO SCH (21:06)
[2021-12-01] MEDS: PIPERACILLIN/TAZOBACTAM 4.5 GM in DEXTROSE 5% 100 ML IV SCH ×3 (04:03→20:45)
[2021-12-01] MEDS: VANCOMYCIN HCL 1,250 MG in SODIUM CHLORIDE 0.9% 250 ML IV SCH ×2 (04:03→16:07)
[2021-12-01] MEDS: PANTOprazole 40 MG TAB PO SCH (06:33)
[2021-12-01] MEDS: buprenorphine HCL 8 MG SUBL SL SCH ×2 (07:47→20:58)
[2021-12-01] MEDS: POLYETHYLENE (MIRALAX) 17 GM PACK PO SCH (07:47)
[2021-12-01] MEDS: SPIRONOLACTONE 25 MG TAB PO SCH (07:48)
[2021-12-01] MEDS: FOLIC ACID 1 MG TAB PO SCH (07:48)
[2021-12-01] MEDS: ADVANCED PROBIOTIC 1250 MG CAPSULE PO SCH (07:49)
[2021-12-01] MEDS: TAMSULOSIN HCL 0.4 MG CAP PO SCH (07:50)
[2021-12-01] MEDS: FERROUS SULFATE 325 MG TAB PO SCH (07:50)
[2021-12-01] MEDS: ISOSORBIDE MONO EXTENDED REL 30 MG TABCR PO SCH (07:51)
[2021-12-01] MEDS: FAMOTIDINE 20 MG TAB PO SCH (07:51)
[2021-12-01] MEDS: ASPIRIN 81 MG ECTAB PO SCH (07:51)
[2021-12-01] MEDS: GABAPENTIN 800 MG TAB PO SCH ×3 (07:52→20:56)
[2021-12-01] MEDS: FUROSEMIDE 40 MG/4 ML VIAL IV SCH ×2 (07:56→20:56)
[2021-12-01] MEDS: guaiFENesin 600 MG TABCR PO SCH ×2 (07:57→20:55)
[2021-12-01] MEDS: FLUTICASONE PROPIONATE NA SPR 16 GM BTL SCH (07:58)
[2021-12-01] MEDS: DOCUSATE SODIUM/SENNA 50/8.6MG TAB PO SCH ×2 (07:58→20:56)
[2021-12-01] MEDS: INSULIN GLARGINE SOLOSTAR 100 UNITS/ML 3 ML PEN SC SCH (07:58)
[2021-12-01] MEDS: UMECLIDINIUM BROMIDE 62.5MCG/BLISTER 7 PUFFS/INHALER INH SCH (08:00)
[2021-12-01] MEDS: POTASSIUM CHLORIDE CRTAB 20 MEQ TABCR PO SCH ×2 (08:00→16:13)
[2021-12-01] MEDS: NICOTINE 21 MG/24 HR TDSY TD SCH (08:00)
[2021-12-01] MEDS: METOPROLOL SUCC 25MG EXT REL TAB PO SCH ×2 (08:01→20:54)
[2021-12-01 08:02] LABS: INR 2.7 (0.9-1.1); Prothrombin Time 26.8 Seconds (9.0-12.0)
[2021-12-01] MEDS: INSULIN ASPART PER UNIT SC SCH ×4 (08:11→20:58)
[2021-12-01 08:22] LABS: BUN Creatinine Ratio 10.4 (10-20); Calcium 8.6 mg/dl (8.5-10.1); Creatinine Clr Calc Pharmacy 125.2 ml/min; Est GFR (African American) 76.8 ml/min; Est GFR (Non-African American) 66.2 ml/min; Potassium 3.8 mmol/L (3.5-5.1)
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
[2021-12-01] MEDS: buprenorphine HCL 2 MG SUBL SL SCH (13:59)
[2021-12-01] MEDS: ALBUT/IPRATROP 3MG/0.5MG NEB 3 ML VIAL NEB PRN (14:32)
[2021-12-01] MEDS ORDERED: SODIUM CHLORIDE 0.65% NA SOLN 45 ML (OCEAN) ONE (15:52)
[2021-12-01] MEDS ORDERED: bisacodyL 5 MG TABEC PO ONE (16:08)
[2021-12-01] MEDS ORDERED: bisacodyL 5 MG TABEC PO PRN (16:08)
--- NOTE | 2021-12-01 16:08 | Hospitalist Progress Note ---
Date of Service December 01, 2021 Assessment & Plan (1) Encephalopathy: Plan: Metabolic encephalopathy Possible related to UTI vs Suboxone withhenrywal CT head showed no acute intracranial hemorrhage No focal neuro deficit Zyprexa administered for agitation Continue monitor closely Resolved UTI UTI due to indwelling Fontaine catheter, a complication of care Received Vanco and Zosyn on admission Urine cx grew corynebacterium urealyticum On IV Zosyn and IV vanco, Will d/c abx tomorrow If fontaine did not exchange on admission, will encourage staff to change it Blood cx no growth Chronic R heart failure with preserved EF BNP on admission 41 Continue Lasix 40mg IV BID Continue Spironolactone Continue monitor BMP Chronic pain syndrome Spoke to and said pt last dose of soboxone was on Wednesday morning He seems to have suboxone withdrawal since he confused and agitated Spoke to pain management that recommended to resume his Suboxone Stable COPD (chronic obstructive pulmonary disease): Chronic respiratory failure: Pt was placed on Bipap on admission ABG wth pH 7.50/ pCO2 53/ HCO3 41/ PO2 68 Has been on home oxygen with 4 L to maintain saturation Currently on 2L oxygen [place] Continue monitor closely Hypokalemia Potassium 3.8 today K stable Continue monitor BMP BPH (benign prostatic hyperplasia): History of prostrate hypertrophy and has a indwelling Fontaine catheter History of recurrent catheter associated UTI Will make sure catheter exchange before complete abx course Pt is interested on a voiding trial, will do voiding trial Urology on board recommended to: Recommended continuing the urinary catheter for maximum drainage while treating the infection. Can consider voiding trial after infection has resolved, either inpatient if he is still here or can arrange as outpatient. Continue Flomax and finasteride Seizure-like activity: Stable History of pulmonary embolism: Continue Coumadin with INR 2.7 today Type 2 diabetes mellitus Most recent Hba1c 6.7 Continue to hold Glipizide Continue Lantus Continue monitor BP DVT prophylaxis On Coumadin with INR at goal (2.7) Full code Spoke to girlfriend about 2 days ago (Ms. Estrella Ko, contact #[phone] ) over the phone to provide with update Admission and Anticipated Discharge Date Admission Date: November 26, 2021 Subjective Patient was seen and examined for follow-up of confusion and agitated Sitting in chair with no acute distress Pt said that he feels much better He was able to speak with urology today Denies any chest pain, palpitation, dizziness and SOB Review of Systems Review of Systems: All systems reviewed & are unremarkable except as noted in Subjective Physical Exam Physical Exam: General- no acute distress Head- atraumatic ENT- oropharynx clear Neck- supple, no JVD Lungs- +diminished breath sound Heart- regular rhythm; no murmur Abdomen- normal bowel sounds, soft, nontender Extremities- no calf tenderness, +edema Neuro- AAOx3, no facial palsy; no dysarthria, move all 4 extremities Skin- warm & dry Results & Data Results & Data ([facility]) Vital Signs (Past 12 Hours) Vital Signs Temp Pulse Resp BP Pulse Ox 12/01/21 15:42 36.7 C 89 20 120/80 93 12/01/21 14:32 90 18 92 12/01/21 11:30 36.7 C 87 18 100/67 93 12/01/21 07:30 36.4 C L 81 18 109/77 97
[2021-12-01] MEDS: WARFARIN SOD 5 MG TAB PO SCH (17:46)
[2021-12-01] MEDS: WARFARIN SOD 2.5 MG TAB PO SCH (18:35)
[2021-12-01] MEDS: LORazepam 0.5 MG TAB PO PRN (18:37)
[2021-12-01] MEDS: ATORVASTATIN 40 MG TAB PO SCH (20:57)
[2021-12-01] MEDS ORDERED: ACETAMINOPHEN 1,000 MG/100 ML VIAL IV STA (22:06)
[2021-12-01] MEDS ORDERED: XOPENEX/ATROVENT 1.25mg/0.5MG NEB COMBO NEB PRN (22:06)
[2021-12-01] MEDS: LEVALBUTEROL 1.25MG/0.5ML NEB INH PRN (23:06)
[2021-12-01] MEDS: IPRATROPIUM BROMIDE NEB SOLN 0.02% 2.5 ML VIAL INH PRN (23:06)
[2021-12-02] MEDS ORDERED: VANCOMYCIN TROUGH ONE (03:30)
[2021-12-02] MEDS: PIPERACILLIN/TAZOBACTAM 4.5 GM in DEXTROSE 5% 100 ML IV SCH ×3 (04:45→19:40)
[2021-12-02] MEDS: VANCOMYCIN HCL 1,250 MG in SODIUM CHLORIDE 0.9% 250 ML IV SCH ×2 (04:45→15:58)
[2021-12-02] MEDS: PANTOprazole 40 MG TAB PO SCH (06:16)
[2021-12-02 07:48] LABS: INR 2.4 (0.9-1.1); Prothrombin Time 24.7 Seconds (9.0-12.0)
[2021-12-02] MEDS: UMECLIDINIUM BROMIDE 62.5MCG/BLISTER 7 PUFFS/INHALER INH SCH (08:22)
[2021-12-02] MEDS: FUROSEMIDE 40 MG/4 ML VIAL IV SCH (08:23)
[2021-12-02] MEDS: POLYETHYLENE (MIRALAX) 17 GM PACK PO SCH (08:23)
[2021-12-02] MEDS: buprenorphine HCL 8 MG SUBL SL SCH ×2 (08:23→20:44)
[2021-12-02] MEDS: FLUTICASONE PROPIONATE NA SPR 16 GM BTL SCH (08:23)
[2021-12-02] MEDS: NICOTINE 21 MG/24 HR TDSY TD SCH (08:24)
[2021-12-02] MEDS: INSULIN ASPART PER UNIT SC SCH ×4 (08:24→20:42)
[2021-12-02] MEDS: SPIRONOLACTONE 25 MG TAB PO SCH (08:24)
[2021-12-02] MEDS: TAMSULOSIN HCL 0.4 MG CAP PO SCH (08:24)
[2021-12-02] MEDS: FAMOTIDINE 20 MG TAB PO SCH (08:25)
[2021-12-02] MEDS: METOPROLOL SUCC 25MG EXT REL TAB PO SCH ×2 (08:25→20:33)
[2021-12-02] MEDS: DULoxetine HCL 60 MG CAP PO SCH (08:25)
[2021-12-02] MEDS: FERROUS SULFATE 325 MG TAB PO SCH (08:25)
[2021-12-02] MEDS: GABAPENTIN 800 MG TAB PO SCH ×3 (08:25→20:33)
[2021-12-02] MEDS: ADVANCED PROBIOTIC 1250 MG CAPSULE PO SCH (08:25)
[2021-12-02] MEDS: INSULIN GLARGINE SOLOSTAR 100 UNITS/ML 3 ML PEN SC SCH (08:25)
[2021-12-02] MEDS: guaiFENesin 600 MG TABCR PO SCH ×2 (08:26→20:34)
[2021-12-02] MEDS: ASPIRIN 81 MG ECTAB PO SCH (08:26)
[2021-12-02] MEDS: ISOSORBIDE MONO EXTENDED REL 30 MG TABCR PO SCH (08:26)
[2021-12-02] MEDS: DOCUSATE SODIUM/SENNA 50/8.6MG TAB PO SCH ×2 (08:26→20:35)
[2021-12-02] MEDS: FOLIC ACID 1 MG TAB PO SCH (08:26)
[2021-12-02] MEDS: POTASSIUM CHLORIDE CRTAB 20 MEQ TABCR PO SCH ×2 (08:28→17:54)
[2021-12-02 08:42] LABS: BUN Creatinine Ratio 12.2 (10-20); Calcium 8.5 mg/dl (8.5-10.1); Creatinine Clr Calc Pharmacy 112.5 ml/min; Est GFR (African American) 67.5 ml/min; Est GFR (Non-African American) 58.3 ml/min
[2021-12-02] MEDS: buprenorphine HCL 2 MG SUBL SL SCH (13:14)
--- NOTE | 2021-12-02 15:39 | Hospitalist Progress Note ---
Date of Service December 02, 2021 Assessment & Plan (1) Encephalopathy: Plan: Metabolic encephalopathy Possible related to UTI vs Suboxone withgertrudis CT head showed no acute intracranial hemorrhage No focal neuro deficit Zyprexa administered for agitation Continue monitor closely Resolved UTI UTI due to indwelling Fontaine catheter, a complication of care Received Vanco and Zosyn on admission Urine cx grew corynebacterium urealyticum On IV Zosyn and IV vanco, Will complete the course of the antibiotic today If fontaine did not exchange on admission, will encourage staff to change it Blood cx no growth Chronic R heart failure with preserved EF BNP on admission 41 Continue Lasix 40mg IV BID, will transition on PO in am Continue Spironolactone Continue monitor BMP Chronic pain syndrome Spoke to and said pt last dose of soboxone was on Wednesday morning He seems to have suboxone withdrawal since he confused and agitated Spoke to pain management that recommended to resume his Suboxone Stable COPD (chronic obstructive pulmonary disease): Chronic respiratory failure: Pt was placed on Bipap on admission ABG wth pH 7.50/ pCO2 53/ HCO3 41/ PO2 68 Has been on home oxygen with 4 L to maintain saturation Currently on 2L oxygen [place] Continue monitor closely Hypokalemia Potassium 4.0 today K stable Continue monitor BMP BPH (benign prostatic hyperplasia): History of prostrate hypertrophy and has a indwelling Fontaine catheter History of recurrent catheter associated UTI Will make sure catheter exchange before complete abx course Pt is interested on a voiding trial, will do voiding trial Urology on board recommended to: Recommended continuing the urinary catheter for maximum drainage while treating the infection. Can consider voiding trial after infection has resolved, either inpatient if he is still here or can arrange as outpatient. Pt would like to do a voiding trial tomorrow before discharging. He said if we fail, he agreed to place the fontaine cath back Continue Flomax and finasteride Seizure-like activity: Stable History of pulmonary embolism: Continue Coumadin with INR 2.4 today Type 2 diabetes mellitus Most recent Hba1c 6.7 Continue to hold Glipizide Continue Lantus Continue monitor BP DVT prophylaxis On Coumadin with INR at goal (2.7) Full code Disposition Plan to discharge home tomorrow Spoke to girlfriend few days ago (Ms. Estrella Ko, contact #[phone] ) over the phone to provide with update Admission and Anticipated Discharge Date Admission Date: November 26, 2021 Subjective Patient was seen and examined for follow-up of UTI Sitting in chair with no acute distress Pt said that he feels much better He would like to do a voiding trial tomorrow before leaving since his last day of the antibiotic is today Denies any chest pain, palpitation, dizziness and SOB Review of Systems Review of Systems: All systems reviewed & are unremarkable except as noted in Subjective Physical Exam Physical Exam: General- no acute distress Head- atraumatic ENT- oropharynx clear Neck- supple, no JVD Lungs- +diminished breath sound Heart- regular rhythm; no murmur Abdomen- normal bowel sounds, soft, nontender Extremities- no calf tenderness, +edema Neuro- AAOx3, no facial palsy; no dysarthria, move all 4 extremities Skin- warm & dry Results & Data Results & Data ([facility]) Vital Signs (Past 12 Hours) Vital Signs Temp Pulse Resp BP Pulse Ox 12/02/21 15:19 37.2 C 98 H 20 126/52 L 90 12/02/21 11:35 36.9 C 88 20 114/69 94 12/02/21 07:46 36.5 C 80 20 123/75 95
[2021-12-02] MEDS: ONDANSETRON INJ 2 MG/ML 2 ML VIAL IV PRN (15:58)
[2021-12-02] MEDS: WARFARIN SOD 2.5 MG TAB PO SCH (16:02)
[2021-12-02] MEDS: FINASTERIDE 5 MG TAB PO SCH (17:56)
[2021-12-02] MEDS: ATORVASTATIN 40 MG TAB PO SCH (20:35)
[2021-12-02] MEDS: FUROSEMIDE 40 MG TAB PO SCH (20:44)
[2021-12-02] MEDS: LORazepam 0.5 MG TAB PO PRN (20:44)
[2021-12-02] MEDS: IPRATROPIUM BROMIDE NEB SOLN 0.02% 2.5 ML VIAL INH PRN (22:05)
[2021-12-02] MEDS: LEVALBUTEROL 1.25MG/0.5ML NEB INH PRN (22:05)
[2021-12-02] MEDS ORDERED: ACETAMINOPHEN 1,000 MG/100 ML VIAL IV STA (22:37)
[2021-12-02] MEDS ORDERED: MELATONIN 3 MG TAB PO PRN (22:37)
[2021-12-03] MEDS: PANTOprazole 40 MG TAB PO SCH (06:21)
[2021-12-03] MEDS: METOPROLOL SUCC 25MG EXT REL TAB PO SCH (07:32)
[2021-12-03] MEDS: FAMOTIDINE 20 MG TAB PO SCH (07:32)
[2021-12-03] MEDS: FOLIC ACID 1 MG TAB PO SCH (07:32)
[2021-12-03] MEDS: FUROSEMIDE 40 MG TAB PO SCH (07:32)
[2021-12-03] MEDS: DULoxetine HCL 60 MG CAP PO SCH (07:32)
[2021-12-03] MEDS: TAMSULOSIN HCL 0.4 MG CAP PO SCH (07:33)
[2021-12-03] MEDS: FERROUS SULFATE 325 MG TAB PO SCH (07:33)
[2021-12-03] MEDS: ISOSORBIDE MONO EXTENDED REL 30 MG TABCR PO SCH (07:33)
[2021-12-03] MEDS: ASPIRIN 81 MG ECTAB PO SCH (07:33)
[2021-12-03] MEDS: FINASTERIDE 5 MG TAB PO SCH (07:33)
[2021-12-03] MEDS: FLUTICASONE PROPIONATE NA SPR 16 GM BTL SCH (07:34)
[2021-12-03] MEDS: DOCUSATE SODIUM/SENNA 50/8.6MG TAB PO SCH (07:34)
[2021-12-03] MEDS: guaiFENesin 600 MG TABCR PO SCH (07:34)
[2021-12-03] MEDS: GABAPENTIN 800 MG TAB PO SCH ×2 (07:35→14:37)
[2021-12-03] MEDS: ADVANCED PROBIOTIC 1250 MG CAPSULE PO SCH (07:36)
[2021-12-03] MEDS: NICOTINE 21 MG/24 HR TDSY TD SCH (07:36)
[2021-12-03] MEDS: UMECLIDINIUM BROMIDE 62.5MCG/BLISTER 7 PUFFS/INHALER INH SCH (07:37)
[2021-12-03] MEDS: POLYETHYLENE (MIRALAX) 17 GM PACK PO SCH (07:37)
[2021-12-03] MEDS: SPIRONOLACTONE 25 MG TAB PO SCH (07:37)
[2021-12-03] MEDS: POTASSIUM CHLORIDE CRTAB 20 MEQ TABCR PO SCH (07:41)
[2021-12-03 08:25] LABS: INR 2.1 (0.9-1.1); Prothrombin Time 21.3 Seconds (9.0-12.0)
[2021-12-03 08:27] LABS: BUN Creatinine Ratio 11.5 (10-20); Calcium 9.4 mg/dl (8.5-10.1); Creatinine Clr Calc Pharmacy 106.7 ml/min; Est GFR (African American) 62.6 ml/min; Potassium 3.9 mmol/L (3.5-5.1)
[2021-12-03] MEDS: buprenorphine HCL 8 MG SUBL SL SCH (09:09)
[2021-12-03] MEDS: INSULIN GLARGINE SOLOSTAR 100 UNITS/ML 3 ML PEN SC SCH (10:00)
[2021-12-03] MEDS: INSULIN ASPART PER UNIT SC SCH ×2 (10:01→12:34)
[2021-12-03] MEDS: buprenorphine HCL 2 MG SUBL SL SCH (14:37)
--- NOTE | 2021-12-03 15:58 | Hospitalist Progress Note ---
Date of Service December 03, 2021 Assessment & Plan (1) Encephalopathy: Plan: per Dr. Silvestre's notes with addendum: Metabolic encephalopathy Possible related to UTI vs Suboxone withdrawal CT head showed no acute intracranial hemorrhage No focal neuro deficit Zyprexa administered for agitation Resolved Back to baseline mental status UTI UTI due to indwelling Lloyd catheter, a complication of care Received Vanco and Zosyn on admission Urine cx grew corynebacterium urealyticum given 7 day course of IV Zosyn and IV vanco Lloyd catheter removed per patient's request Chronic R heart failure with preserved EF BNP on admission 41 given Lasix 40mg IV BID resume usual Lasix and Spironolactone PO on discharge repeat BMP on ff up with PCP in 1 week Chronic pain syndrome Spoke to and said pt last dose of suboxone was on Wednesday morning He seems to have suboxone withdrawal since he confused and agitated Spoke to pain management that recommended to resume his Suboxone resumed usual Suboxone regimen, patient back to baseline mental status COPD (chronic obstructive pulmonary disease): Chronic respiratory failure: Pt was placed on Bipap on admission ABG wth pH 7.50/ pCO2 53/ HCO3 41/ PO2 68 Has been on home oxygen with 4 L to maintain saturation back to baseline O2 via nasal cannula Hypokalemia resolved BPH (benign prostatic hyperplasia): History of prostrate hypertrophy and has a indwelling Lloyd catheter History of recurrent catheter associated UTI Urology Dr. Oakley consulted: Recommended continuing the urinary catheter for maximum drainage while treating the infection. Can consider voiding trial after infection has resolved, either inpatient if he is still here or can arrange as outpatient. Voiding trial performed, residual 18cc ff up with Urologist in 1 week Continue Flomax and finasteride Seizure-like activity: Stable History of pulmonary embolism: Continue Coumadin with INR 2.1 on discharge Type 2 diabetes mellitus Most recent Hba1c 6.7 Continue Glipizide and Lantus Disposition D/C home today ff up with PCP in 1 week plan of care discussed with patient in detail and at length all questions answered he is understanding, agreeable, comfortable with the plan of care Admission and Anticipated Discharge Date Admission Date: November 26, 2021 Subjective ff up for encephalopathy, UTI, etc seen with ALEXANDER Newberry and MAK Bee at bedside chair patient states he feels fine overall oriented x 3, answers all questions appropriately became very upset, then tearful because of AM events, not allowed to have additional peanut butter- requesting to have another RN no chest pain, dyspnea, palpitations, dizziness requesting to perform trial of voiding no other symptoms re-evaluated with ALEXANDER Giles in the afternoon comfortable, in good spirits no problem with voiding as per patient residual per bladder scan 18cc no other symptoms states he is ready and would like to be discharge today Review of Systems Review of Systems: all noted and negative except for above Physical Exam Physical Exam: General- oriented x 3, not in distress, speaks in sentences with no effort or accessory muscle use Head- atraumatic Eyes- PERRL, EOMI, anicteric ENT- oropharynx clear Neck- supple, no JVD, no adenopathy, no thyromegaly; carotids +2/2, no bruits appreciated Lungs- clear to auscultation bilaterally, no rales/wheezes Heart- normal rate, regular rhythm; no murmur, no gallop, no rub appreciated Abdomen- normal bowel sounds, nondistended, soft, nontender, no masses or hepatosplenomegaly Extremities- trace pretibial edema, no calf tenderness; peripheral pulses intact Neuro- alert, oriented x 3; CN 2-12 grossly intact; motor 5/5 bi laterally;sensation 100% on all extremities; no other gross focal neurologic deficits Skin- warm & dry Results & Data Results & Data ([facility]) Vital Signs (Past 12 Hours) Vital Signs Temp Pulse Pulse Resp BP Pulse Ox 12/03/21 15:22 36.4 C L 98 H 75 20 109/71 97 12/03/21 07:38 36.4 C L 75 20 109/71 97 all noted and reviewed including below
--- NOTE | 2021-12-03 16:05 | Discharge Summary ---
Date of Service December 03, 2021 Admission HPI Per Admitting Provider History obtained from patient and records. Limited history from patient secondary to lethargy. Medical history is significant for chronic diastolic heart failure (EF 60 to 65%, TTE 2020), history CAD/STEMI as per records, history subdural hematoma/subarachnoid hemorrhage as per records (no operative intervention), hypertension, hyperlipidemia, COPD, recurrent PE on Coumadin, DM 2 insulin requiring, recurrent UTIs secondary to BPH/chronic urinary retention indwelling Lloyd catheter on methenamine suppression Rx, ongoing tobacco abuse, chronic anemia (baseline hemoglobin 11-13 ), chronic pain on buprenorphine, drug-seeking behavior as per records. Last confinement last month for decompensated heart failure and COVID-19 infection. Patient transitioned to [facility] bed unit where he stayed for 5 days un [facility] November 11, 2021. As per outpatient documentation from 2 days ago, since arriving home weight had increased about 15 pounds. Patient with shortness of breath both at rest and exertion. O2 sats occasionally dropping to the 80s. Legs more swollen than usual. Unable to elicit history regarding medication compliance. Patient feeling worse than usual and noted to be disoriented by girlfriend today. Patient denies unusual belly pain complaints. Patient brought to the ER for evaluation. Initial O2 sats at the ER 60s on room air. Vancomycin and ceftazidime given for possible UTI Medical History as above Surgical History : Foot/toe surgery, nerve repair, hand surgery, scalp neck wound injury Family History : Breast cancer, heart disease, COPD Personal/Social history : One pack daily, no EtOH intake, disabled Admission Exam (Per Admitting) Constitutional GENERAL: Lethargic, morbidly obese, no respiratory distress SKIN: Pallor lower warm HEENT: Alopecia, bespectacled, pale palpebral conjunctivae, no ptosis, dry buccal mucosa, nasal cannula in place NECK : Supple, short neck, no tenderness CHEST : Decreased breath sounds, expiratory wheezes, no tenderness HEART : RRR, no obvious murmurs ABDOMEN: distention, no tenderness EXTREMITIES : Bilateral LE swelling, no LE tenderness, no conspicuous deformities noted NEUROLOGIC : Lethargic, no facial asymmetry, gait and stance not assessed Discharge Data Consultations 11/26/21 19:13 ED Decision to Admit Stat 12/01/21 12:21 Consult Urology Routine Procedures Performed CT head/brain wo con CLINICAL HISTORY: confusion Technique: Contiguous axial CT images of the head were acquired from the base of the skull to the vertex without intravenous contrast administration. Images were viewed in brain, subdural and bone windows. Automated dose lowering techniques and/or adjustment according to patient size were utilized for this exam. Comparison: Comparison is made to CT head 07/30/2021 Findings: The ventricles, basal cisterns, and cerebral sulci are normal. There is no acute intracranial hemorrhage or evidence of acute territorial infarction. Neither mass effect, shift of the midline structures, nor abnormal extra-axial fluid collections are shown. Opacification of the bilateral maxillary sinuses and right greater than left ethmoid sinuses are seen. Soft tissue thickening is seen in the right frontal sinus. The orbits appear normal. There are no acute fractures of the calvaria or scalp swelling. Impression: 1. No acute intracranial hemorrhage, no evidence of acute territorial infarction or other acute intracranial disease process. 2. Sinus disease, progressed from prior exam. ACT 112: Negative or not required by law. Electronically signed by: Armand Tobar M.D. 11/26/2021 6:40 PM XR chest 1V portable HISTORY: Hypoxia. COMPARISON: Chest 11/26/2021. FINDINGS: There are low lung volumes. The heart remains enlarged. There is right greater than left interstitial/vascular thickening. This favors mild asymmetric pulmonary edema. Hazy appearance to the right upper lobe may be due to the alveolar component of the pulmonary edema or developing pneumonia. There is an old, healed left clavicle fracture. IMPRESSION: There is right greater than left interstitial/vascular thickening. This favors mild asymmetric pulmonary edema. Hazy appearance to the right upper lobe may be due to the alveolar component of the pulmonary edema or developing pneumonia. ACT 112: Negative or not required by law Electronically signed by: Vidal Keller M.D. 11/28/2021 8:11 AM
== END 2021-12-03 15:48 | disposition home or self-care (01) | DRG 698 ==
LOC: ED 16:18 → SUATTDRO 20:15 → 2S 20:15 → 2W 11-27 12:39

== ENCOUNTER 2021-12-17 14:47 | Inpatient (IN) ==
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
--- NOTE | 2021-12-17 15:45 | Electrocardiogram Report ---
Test Reason : Blood Pressure : / mmHG Vent. Rate : 095 BPM Atrial Rate : 095 BPM P-R Int : 168 ms QRS Dur : 106 ms QT Int : 350 ms P-R-T Axes : 065 032 057 degrees QTc Int : 439 ms Normal sinus rhythm Nonspecific ST and T wave abnormality Abnormal ECG When compared with ECG of 26-NOV-2021 16:52, No significant change Confirmed by Stanton Porter ([id number]) on 12/17/2021 3:44:38 PM Referred By: Confirmed By:Stanton Porter
--- NOTE | 2021-12-17 16:05 | XRay Report ---
XR chest 1V portable CLINICAL HISTORY: Chest Pain. COMPARISON STUDY: 11/27/2021 TECHNIQUE: 1 view of the chest FINDINGS: Single frontal view of the chest demonstrates the cardiomediastinal silhouette to be within normal li mits. There is a decreased inspiratory effort with elevation of the hemidiaphragms and crowding of th e bronchovascular markings at the lung bases and centrally. The lungs are clear of alveolar opacities . There is no evidence for pleural effusion. There is no evidence for vascular congestion. There is n o acute osseous pathology. IMPRESSION: 1. . There is a decreased inspiratory effort with otherwise no acute chest disease. ACT 112: Negative or not required by law. Electronically signed by: Sandip Chawla M.D. 12/17/2021 4:04 PM
[2021-12-17 16:18] LABS: Base Excess VBG 5.3 mEq/L; HCO3 VBG 32 mmol/L; PCO2 VBG 59 mmHg (38-50); PO2 VBG 23 mmHg; pH VBG 7.35 (7.36-7.41)
[2021-12-17 16:25] LABS: Basophils # (auto) 0.02 K/uL (0-0.2); Basophils % (auto) 0.2 %; Eosinophils % (auto) 3.5 %; Hematocrit (blood only) 37.9 % (42-52); Hemoglobin 11.7 g/dL (14.0-18.0); Immature Granulocytes # (auto) 0.05 K/uL (0.00-0.02); Immature Granulocytes % (auto) 0.4 %; Lymphocytes # (auto) 2.09 K/uL (1.2-3.4); Mean Corpuscular Hemoglobin 25.2 pg (25-34); Mean Corpuscular Hgb Conc 30.9 g/dL (32-36); Mean Corpuscular Volume 81.7 fL (80-100); Monocytes # (auto) 0.62 K/uL (0.11-0.59); Monocytes % (auto) 5.3 %; Neutrophils # (auto) 8.41 K/uL (1.4-6.5); Neutrophils % (auto) 72.6 %; Platelet Count 239 K/uL (130-400); RDW Standard Deviation 61.6 fL (36.4-46.3); Red Blood Count 4.64 M/uL (4.7-6.1); White Blood Count 11.59 K/uL (4.8-10.8)
[2021-12-17 16:26] LABS: Oxygen Saturation VBG < 60.0 %
[2021-12-17 16:41] LABS: Troponin I < 0.03 ng/ml (0-0.04)
[2021-12-17 16:42] LABS: Alanine Aminotransferase 10 U/L (7-52); Albumin Level 3.3 gm/dl (3.4-5.0); Alkaline Phosphatase 109 U/L (34-104); Anion Gap 5 (3-11); Aspartate Aminotransferase 13 U/L (13-39); BUN Creatinine Ratio 14.3 (10-20); Bilirubin,Total 0.6 mg/dl (0.2-1.0); Blood Urea Nitrogen 10 mg/dl (6-23); Calcium 8.9 mg/dl (8.5-10.1); Carbon Dioxide 33 mmol/L (21-32); Chloride 102 mmol/L (98-107); Creatinine Clr Calc Pharmacy 233.4 ml/min; Est GFR (African American) 126.6 ml/min; Est GFR (Non-African American) 109.3 ml/min; Globulin 3.3 gm/dl (2.5-4.0); Glucose 124 mg/dl (70-99(Fasting)); Lipase 10 U/L (11-82); Potassium 3.8 mmol/L (3.5-5.1); Sodium 140 mmol/L (136-145); Total Protein 6.6 gm/dl (6.0-8.3)
[2021-12-17 16:49] LABS: INR 2.4 (0.9-1.1); Partial Thromboplastin Ratio 1.7; Prothrombin Time 24.8 Seconds (9.0-12.0)
[2021-12-17 16:58] LABS: Partial Thromboplastin Time 45.6 Seconds (21.0-31.0)
[2021-12-17 17:10] LABS: Appearance Urine Clear (Clear); Bacteria Urine Automated Negative (Negative); Bilirubin Urine Negative (Negative); Blood Urine Negative (Negative); Cast Urine Automated 0 /lpf (0-5); Color Urine Yellow; Epithelial Cell Urine Auto >30 /lpf (0-5); Glucose Urine UA Negative (Negative); Ketones Urine Trace (Negative); Leukocyte Esterase Urine 1+ (Negative); Nitrite Urine Negative (Negative); Specific Gravity Urine 1.021 (1.000-1.030); Urobilinogen Urine Negative (Negative)
[2021-12-17 17:15] LABS: Protein Urine Trace (Negative)
[2021-12-17 17:28] LABS: Polychromasia 1+
[2021-12-17 17:29] LABS: Influenza A virus by PCR Negative (Neg); Influenza B virus by PCR Negative (Neg); RSV by PCR Negative (Neg); SARS CoV2 RNA(COVID-19) InHosp NEGATIVE (Negative)
[2021-12-17] MEDS ORDERED: FUROSEMIDE 40 MG/4 ML VIAL IV ONE (18:57)
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
[2021-12-17] MEDS ORDERED: DEXTROSE 50% 50 ML SYRINGE IV PRN (22:11)
[2021-12-17] MEDS ORDERED: ONDANSETRON INJ 2 MG/ML 2 ML VIAL IV PRN (22:11)
[2021-12-17] MEDS ORDERED: buprenorphine HCL 8 MG SUBL SL SCH (22:11)
[2021-12-17] MEDS ORDERED: GLUCOSE 40% GEL 15 GM TUBE PO PRN (22:11)
[2021-12-17] MEDS ORDERED: GLUCOSE 10 TABS/TUBE PO PRN (22:11)
[2021-12-17] MEDS ORDERED: GLUCAGON FOR INJ 1 MG VIAL SQ PRN (22:11)
[2021-12-17] MEDS ORDERED: NITROGLYCERIN SL 0.4 MG/TAB TAB SL PRN (22:11)
[2021-12-17] MEDS ORDERED: CARBOHYDRATES FOR HYPOGLYCEMIA PO PRN (22:11)
[2021-12-17] MEDS ORDERED: hydrOXYzine HCl 25 MG TAB PO PRN (22:11)
[2021-12-17] MEDS ORDERED: POLYETHYLENE (MIRALAX) 17 GM PACK PO PRN (22:11)
[2021-12-17] MEDS ORDERED: ACETAMINOPHEN 325 MG TAB PO PRN (22:11)
[2021-12-17] MEDS: ATORVASTATIN 40 MG TAB PO SCH (23:44)
[2021-12-17] MEDS: DOCUSATE SODIUM 100 MG CAP PO SCH (23:44)
[2021-12-17] MEDS: POTASSIUM CHLORIDE CRTAB 20 MEQ TABCR PO SCH (23:45)
[2021-12-17] MEDS: METOPROLOL SUCC 25MG EXT REL TAB PO SCH (23:45)
[2021-12-17] MEDS: GABAPENTIN 800 MG TAB PO SCH (23:45)
[2021-12-17] MEDS: INSULIN GLARGINE SOLOSTAR 100 UNITS/ML 3 ML PEN SC SCH (23:46)
[2021-12-17] MEDS: INSULIN ASPART PER UNIT SC SCH (23:46)
[2021-12-17] MEDS: WARFARIN SOD 5 MG TAB PO SCH (23:48)
[2021-12-17] MEDS: CYCLOBENZAPRINE HCL 10 MG TAB PO PRN (23:58)
[2021-12-17] MEDS: LORazepam 0.5 MG TAB PO PRN (23:58)
[2021-12-18] MEDS: PANTOprazole 40 MG TAB PO SCH (04:17)
[2021-12-18] MEDS: ALBUT/IPRATROP 3MG/0.5MG NEB 3 ML VIAL NEB SCH ×4 (07:18→19:38)
[2021-12-18 08:22] LABS: Hematocrit (blood only) 35.7 % (42-52); Hemoglobin 11.4 g/dL (14.0-18.0); Mean Corpuscular Hemoglobin 25.6 pg (25-34); Mean Corpuscular Hgb Conc 31.9 g/dL (32-36); Mean Platelet Volume 9.6 fL (7.4-10.4); Platelet Count 236 K/uL (130-400); RDW Coefficient of Variation 21.1 % (11.5-14.5); RDW Standard Deviation 61.1 fL (36.4-46.3); Red Blood Count 4.46 M/uL (4.7-6.1); White Blood Count 10.68 K/uL (4.8-10.8)
[2021-12-18] MEDS: INSULIN GLARGINE SOLOSTAR 100 UNITS/ML 3 ML PEN SC SCH ×2 (08:23→21:25)
[2021-12-18] MEDS: INSULIN ASPART PER UNIT SC SCH ×4 (08:24→21:19)
[2021-12-18 08:30] LABS: INR 2.1 (0.9-1.1); Prothrombin Time 21.4 Seconds (9.0-12.0)
[2021-12-18] MEDS: DULoxetine HCL 60 MG CAP PO SCH (08:30)
[2021-12-18] MEDS: FAMOTIDINE 20 MG TAB PO SCH (08:30)
[2021-12-18] MEDS: ASPIRIN 81 MG ECTAB PO SCH (08:30)
[2021-12-18] MEDS: FERROUS SULFATE 325 MG TAB PO SCH (08:30)
[2021-12-18] MEDS: buprenorphine HCL 8 MG SUBL SL SCH ×2 (08:30→21:44)
[2021-12-18] MEDS: DOCUSATE SODIUM 100 MG CAP PO SCH ×2 (08:30→21:18)
[2021-12-18] MEDS: FOLIC ACID 1 MG TAB PO SCH (08:31)
[2021-12-18] MEDS: FINASTERIDE 5 MG TAB PO SCH (08:31)
[2021-12-18] MEDS: FLUTICASONE PROPIONATE NA SPR 16 GM BTL NAE SCH (08:31)
[2021-12-18] MEDS: METOPROLOL SUCC 25MG EXT REL TAB PO SCH ×2 (08:32→21:22)
[2021-12-18] MEDS: SPIRONOLACTONE 25 MG TAB PO SCH (08:32)
[2021-12-18] MEDS: GABAPENTIN 800 MG TAB PO SCH ×3 (08:32→21:23)
[2021-12-18] MEDS: FUROSEMIDE 40 MG/4 ML VIAL IV SCH ×2 (08:32→16:14)
[2021-12-18] MEDS: MAGNESIUM OXIDE 400 MG TAB PO SCH (08:32)
[2021-12-18] MEDS: ISOSORBIDE MONO EXTENDED REL 30 MG TABCR PO SCH (08:32)
[2021-12-18] MEDS: POTASSIUM CHLORIDE CRTAB 20 MEQ TABCR PO SCH ×2 (08:32→21:21)
[2021-12-18] MEDS: TAMSULOSIN HCL 0.4 MG CAP PO SCH (08:33)
[2021-12-18] MEDS: UMECLIDINIUM BROMIDE 62.5MCG/BLISTER 7 PUFFS/INHALER INH SCH (08:33)
[2021-12-18 08:35] LABS: BUN Creatinine Ratio 11.4 (10-20); Calcium 8.9 mg/dl (8.5-10.1); Creatinine Clr Calc Pharmacy 206.6 ml/min; Est GFR (African American) 120.5 ml/min; Potassium 3.6 mmol/L (3.5-5.1)
[2021-12-18] MEDS: buprenorphine HCL 2 MG SUBL SL SCH (12:06)
--- NOTE | 2021-12-18 15:20 | Hospitalist Progress Note ---
Date of Service December 18, 2021 Assessment & Plan (1) Acute on chronic heart failure with preserved ejection fraction: Plan: Pt is 49 y/o M with PMH DM II, HTN, H/O PE, on Coumadin, diastolic CHF, chronic back pain, COPD, urinary retention with chronic Lloyd that was recently removed after voiding trial, depression, anxiety, history of recurrent hospitalizations, h/o subdural hematoma, SAH, STEMI presented to ER with c/o BLE edema and 30 pound weight gain over past 2 weeks. Uses 4 L oxygen at bedtime. Home O2 sats reported 89 to 92%. Denies cough, fever, chest pain. In ER reported to be hypoxic, improved to 92% on 2 L via nasal cannula, remaining vitals WNL. Negative troponin. BNP: 62. Chest x-ray without acute findings. In ER given 40 mg Lasix IV Acute on chronic diastolic CHF Diuresing well with iv lasix 40 bid, will continue. Continue daily weight, strict I and Os, salt and fluid restriction. Also on aldactone Echo from 07/2021: EF: 60-65%, mild tricuspid regurgitation Monitor renal function, electrolytes while on diuresis Baseline weight of about 200 kg, currently 213 kg. BPH; History urinary retention History Recent UTI secondary to indwelling Lloyd cath. Was treated with course of antibiotics during last admission Lloyd catheter was removed upon discharge 12/03/2021. Patient reports voiding without difficulty at home. Denies dysuria, hematuria Bladder scan as needed Continue tamsulosin, finasteride History PE- On chronic Coumadin; INR 2.1, continue coumadin- adjust as per INR COPD (chronic obstructive pulmonary disease): no exacerbation, no wheezes, continue home inhalers, nebs prn. Supplemental oxygen, wean off as tolerated History obesity hypoventilation syndrome- Uses 4 L oxygen at bedtime and as needed DM type 2 (diabetes mellitus, type 2): A1c: 7.6 on 12/16/2021; hold home meds; continue insulin- will adjust as indicated CAD- Denies current chest pain; Continue aspirin, atorvastatin, metoprolol succinate Chronic pain: Continue gabapentin, Suboxone. Will have iv tylenol daily prn for breakthrough pain. Morbid obesity: BMI: 64; Lifestyle modifications recommended DVT Prophylaxis- On Coumadin. INR therpeutic Dispo- Medsurg pending optimization of volume status, on iv lasix Admission and Anticipated Discharge Date Admission Date: December 17, 2021 Subjective Seen and examined at bedside. States he was doing everything correctly at home but still had the swelling. Diuresing well but states his hands seem more swollen. Asking for mucinex and nicoderm patch. States he has bad pain that heat pad will not help and asking for iv tylenol, states he is not asking for narcotic. Voiding without issues. Physical Exam Physical Exam: General: Sitting comfortably in chair, not in distress, on NC 4L HEENT: EOMI, TIAN, MMM Chest: Fair air entry bilaterally with rales CVS: Regular rate and rhythm, normal heart sounds, no murmur Abdomen: Soft, non tender, not distended, normal bowel sounds Neuro: Awake, alert, oriented, conversing well, non focal Extremities: No cyanosis, clubbing, 2+ edema in all extremities Results & Data Results & Data ([facility]) Vital Signs (Past 12 Hours) Vital Signs Temp Pulse Pulse Pulse Resp BP Pulse Ox 12/18/21 14:13 36.8 C 83 16 114/63 96 12/18/21 14:02 12/18/21 11:13 81 18 95 12/18/21 07:19 74 16 98 12/18/21 06:27 36.6 C 83 18 135/76 96 12/18/21 06:12 77 Pulse Ox 12/18/21 14:13 12/18/21 14:02 94 12/18/21 11:13 12/18/21 07:19 12/18/21 06:27 12/18/21 06:12 Laboratory Results Short CBC 12/17/21 12/18/21 Range/Units 16:00 07:43 WBC 11.59 H 10.68 (4.8-10.8) K/uL Hgb 11.7 L 11.4 L (14.0-18.0) g/dL Hct 37.9 L 35.7 L (42-52) % Plt Count 239 236 (130-400) K/uL BMP 12/17/21 12/18/21 16:00 07:43 Sodium 140 139 Potassium 3.8 3.6 Chloride 102 103 Carbon Dioxide 33 H 32 BUN 10 9 Creatinine 0.70 0.79 Glucose 124 H 125 H Calcium 8.9 8.9 Cardiac Enzymes 12/17/21 Range/Units 16:00 Troponin I < 0.03 (0-0.04) ng/ml Liver Function 12/17/21 Range/Units 16:00 Total Bilirubin 0.6 (0.2-1.0) mg/dl AST 13 (13-39) U/L ALT 10 (7-52) U/L Alkaline Phosphatase 109 H (34-104) U/L Albumin 3.3 L (3.4-5.0) gm/dl Urine 12/17/21 Range/Units 16:53 Urine Color Yellow Urine Appearance Clear (Clear) Urine pH 8.0 H (4.5-7.5) Ur Specific [place] 1.021 (1.000-1.030) Urine Protein Trace H (Negative) Urine Glucose (UA) Negative (Negative) Medications Administered Current Inpatient Medications Acetaminophen (Acetaminophen 325 Mg Tab) 650 mg PO Q4H PRN PRN Reason: Pain or Fever Stop: 01/16/22 22:10 Albuterol (Albut/Ipratrop 3mg/0.5mg Neb 3 Ml Vial) 3 ml NEB QIDR [facility]; Protocol Stop: 01/17/22 06:59 Last Admin: 12/18/21 11:13 Dose: 3 ml Documented by: Aspirin (Aspirin 81 Mg Ectab) 81 mg PO QAM [facility] Stop: 01/17/22 08:59 Last Admin: 12/18/21 08:30 Dose: 81 mg Documented by: Atorvastatin Calcium (Atorvastatin 40 Mg Tab) 80 mg PO QPM [facility] Stop: 01/16/22 22:10 Last Admin: 12/17/21 23:44 Dose: 80 mg Documented by: Buprenorphine HCl (Buprenorphine Hcl 8 Mg Subl) 8 mg SL BID [facility] Stop: 01/17/22 08:59 Last Admin: 12/18/21 08:30 Dose: 8 mg Documented by: Buprenorphine HCl (Buprenorphine Hcl 2 Mg Subl) 4 mg SL DAILY@1200 [facility] Stop: 01/17/22 11:59 Last Admin: 12/18/21 12:06 Dose: 4 mg Documented by: Cyclobenzaprine HCl (Cyclobenzaprine Hcl 10 Mg Tab) 10 mg PO BID PRN PRN Reason: Muscle Spasm Stop: 01/16/22 22:10 Last Admin: 12/17/21 23:58 Dose: 10 mg Documented by: Dextrose (Dextrose 50% 50 Ml Syringe) 25 - 50 ml IV UD PRN; Protocol PRN Reason: Hypoglycemia Protocol Stop: 01/16/22 22:10 Docusate Sodium (Docusate Sodium 100 Mg Cap) 100 mg PO BID [facility] Stop: 01/16/22 22:10 Last Admin: 12/18/21 08:30 Dose: 100 mg Documented by: Duloxetine HCl (Duloxetine Hcl 60 Mg Cap) 60 mg PO DAILY [facility] Stop: 01/17/22 08:59 Last Admin: 12/18/21 08:30 Dose: 60 mg Documented by: Famotidine (Famotidine 20 Mg Tab) 20 mg PO DAILY [facility] Stop: 01/17/22 08:59 Last Admin: 12/18/21 08:30 Dose: 20 mg Documented by: Ferrous Sulfate (Ferrous Sulfate 325 Mg Tab) 325 mg PO QAM [facility] Stop: 01/17/22 08:59 Last Admin: 12/18/21 08:30 Dose: 325 mg Documented by: Finasteride (Finasteride 5 Mg Tab) 5 mg PO QAM [facility] Stop: 01/17/22 08:59 Last Admin: 12/18/21 08:31 Dose: 5 mg Documented by: Fluticasone Propionate (Fluticasone Propionate Na Spr 16 Gm Btl) 2 sprays HANSA DAILY [facility] Stop: 01/17/22 08:59 Last Admin: 12/18/21 08:31 Dose: 2 sprays Documented by: Folic Acid (Folic Acid 1 Mg Tab) 1 mg PO QAM [facility] Stop: 01/17/22 08:59 Last Admin: 12/18/21 08:31 Dose: 1 mg Documented by: Furosemide (Furosemide 40 Mg/4 Ml Vial) 40 mg IV BID17 [facility] Stop: 01/17/22 08:59 Last Admin: 12/18/21 08:32 Dose: 40 mg Documented by: Gabapentin (Gabapentin 800 Mg Tab) 800 mg PO TID [facility] Stop: 01/16/22 22:10 Last Admin: 12/18/21 13:59 Dose: 800 mg Documented by: Glucagon (Glucagon For Inj 1 Mg Vial) 1 mg SQ UD PRN; Protocol PRN Reason: Hypoglycemia Protocol Stop: 01/16/22 22:10 Glucose (Glucose 10 Tabs/Tube) 4 - 8 tabs PO UD PRN; Protocol PRN Reason: Hypoglycemia Protocol Stop: 01/16/22 22:10 Glucose (Glucose 40% Gel 15 Gm Tube) 15 - 30 gm PO UD PRN; Protocol PRN Reason: Hypoglycemia Protocol Stop: 01/16/22 22:10 Guaifenesin (Guaifenesin 600 Mg Tabcr) 600 mg PO Q12 [facility] Stop: 01/17/22 20:59 Hydroxyzine HCl (Hydroxyzine Hcl 25 Mg Tab) 25 mg PO QID PRN PRN Reason: Anxiety Stop: 01/16/22 22:10 Insulin Aspart (Insulin Aspart Per Unit) 0 units SC ACHS [facility] Stop: 01/16/22 22:10 Last Admin: 12/18/21 12:10 Dose: 8 units Documented by: Insulin Glargine (Insulin Glargine Solostar 100 Units/Ml 3 Ml Pen) 25 units SC BID [facility] Stop: 01/16/22 22:10 Last Admin: 12/18/21 08:23 Dose: 25 units Documented by: Isosorbide Mononitrate (Isosorbide [place] Extended Rel 30 Mg Tabcr) 30 mg PO DAILY [facility] Stop: 01/17/22 08:59 Last Admin: 12/18/21 08:32 Dose: 30 mg Documented by: Lorazepam (Lorazepam 0.5 Mg Tab) 0.5 mg PO Q8 PRN PRN Reason: Anxiety Stop: 01/16/22 22:10 Last Admin: 12/17/21 23:58 Dose: 0.5 mg Documented by: Magnesium Oxide (Magnesium Oxide 400 Mg Tab) 400 mg PO DAILY [facility] Stop: 01/17/22 08:59 Last Admin: 12/18/21 08:32 Dose: 400 mg Documented by: Melatonin (Melatonin 3 Mg Tab) 9 mg PO HS PRN PRN Reason: Sleep Stop: 01/17/22 01:04 Metoprolol Succinate (Metoprolol Succ 25mg Ext Rel Tab) 75 mg PO BID [facility] Stop: 01/16/22 22:10 Last Admin: 12/18/21 08:32 Dose: 75 mg Documented by: Miscellaneous (Carbohydrates For Hypoglycemia ) 15 - 30 gm PO UD PRN PRN Reason: Hypoglycemia Protocol Stop: 01/16/22 22:10 Miscellaneous (Urea 20% Cream - Order Awaiting Action) 1 ea N/A QS [facility] Stop: 01/17/22 00:00 Last Admin: 12/18/21 14:56 Dose: Not Given Documented by: Nitroglycerin (Nitroglycerin Sl 0.4 Mg/Tab Tab) 0.4 mg SL UD PRN PRN Reason: CHEST PAIN Stop: 01/16/22 22:10 Ondansetron HCl (Ondansetron Inj 2 Mg/Ml 2 Ml Vial) 4 mg IV Q6H PRN PRN Reason: Nausea Stop: 01/16/22 22:10 Last Admin: 12/18/21 04:16 Dose: 4 mg Documented by: Pantoprazole Sodium (Pantoprazole 40 Mg Tab) 40 mg PO DAILYBB [facility] Stop: 01/17/22 06:29 Last Admin: 12/18/21 04:17 Dose: 40 mg Documented by: Polyethylene Glycol (Polyethylene (Miralax) 17 Gm Pack) 17 gm PO DAILY PRN PRN Reason: Constipation Stop: 01/16/22 22:10 Potassium Chloride (Potassium Chloride Crtab 20 Meq Tabcr) 20 meq PO BID [facility] Stop: 01/16/22 22:10 Last Admin: 12/18/21 08:32 Dose: 20 meq Documented by: Spironolactone ([facility]one 25 Mg Tab) [facility] Stop: 01/17/22 08:59 Last Admin: 12/18/21 08:32 Dose: 25 mg Documented by: Tamsulosin HCl (Tamsulosin Hcl 0.4 Mg Cap) 0.4 mg PO QAM [facility] Stop: 01/17/22 08:59 Last Admin: 12/18/21 08:33 Dose: 0.4 mg Documented by: Umeclidinium [place] (Umeclidinium [place] 62.5mcg/Blister 7 Puffs/Inhaler) 1 puffs [facility]H [facility] Stop: 01/17/22 08:59 Last Admin: 12/18/21 08:33 Dose: 1 puffs Documented by: Warfarin Sodium (Warfarin Sod 5 Mg Tab) 5 mg PO We@1600 [facility] Stop: 01/16/22 22:10 Last Admin: 12/17/21 23:48 Dose: 5 mg Documented by: Warfarin Sodium (Warfarin Sod 2.5 Mg Tab) 2.5 mg PO [id number]@1600 [facility] Stop: 01/17/22 15:59
[2021-12-18] MEDS: NICOTINE 21 MG/24 HR TDSY TD SCH (16:02)
[2021-12-18] MEDS: WARFARIN SOD 2.5 MG TAB PO SCH (16:04)
[2021-12-18] MEDS: ACETAMINOPHEN 1000 MG/100 ML IV IV PRN (16:04)
[2021-12-18] MEDS: guaiFENesin 600 MG TABCR PO SCH (16:13)
[2021-12-18] MEDS: LORazepam 0.5 MG TAB PO PRN (21:17)
[2021-12-18] MEDS: MELATONIN 3 MG TAB PO PRN (21:17)
[2021-12-18] MEDS: CYCLOBENZAPRINE HCL 10 MG TAB PO PRN (21:17)
[2021-12-18] MEDS: ATORVASTATIN 40 MG TAB PO SCH (21:21)
[2021-12-19] MEDS: PANTOprazole 40 MG TAB PO SCH (06:59)
[2021-12-19] MEDS: ALBUT/IPRATROP 3MG/0.5MG NEB 3 ML VIAL NEB SCH ×2 (07:31→11:25)
[2021-12-19] MEDS: TAMSULOSIN HCL 0.4 MG CAP PO SCH (08:42)
[2021-12-19] MEDS: MAGNESIUM OXIDE 400 MG TAB PO SCH (08:42)
[2021-12-19] MEDS: DULoxetine HCL 60 MG CAP PO SCH (08:43)
[2021-12-19] MEDS: POTASSIUM CHLORIDE CRTAB 20 MEQ TABCR PO SCH ×2 (08:43→20:24)
[2021-12-19] MEDS: METOPROLOL SUCC 25MG EXT REL TAB PO SCH ×2 (08:43→20:57)
[2021-12-19] MEDS: ASPIRIN 81 MG ECTAB PO SCH (08:43)
[2021-12-19] MEDS: ISOSORBIDE MONO EXTENDED REL 30 MG TABCR PO SCH (08:43)
[2021-12-19] MEDS: guaiFENesin 600 MG TABCR PO SCH ×2 (08:43→20:23)
[2021-12-19] MEDS: FINASTERIDE 5 MG TAB PO SCH (08:44)
[2021-12-19] MEDS: FAMOTIDINE 20 MG TAB PO SCH (08:44)
[2021-12-19] MEDS: FERROUS SULFATE 325 MG TAB PO SCH (08:44)
[2021-12-19] MEDS: SPIRONOLACTONE 25 MG TAB PO SCH (08:44)
[2021-12-19] MEDS: DOCUSATE SODIUM 100 MG CAP PO SCH ×2 (08:44→20:22)
[2021-12-19] MEDS: FOLIC ACID 1 MG TAB PO SCH (08:44)
[2021-12-19] MEDS: INSULIN ASPART PER UNIT SC SCH ×4 (08:45→20:25)
[2021-12-19] MEDS: FLUTICASONE PROPIONATE NA SPR 16 GM BTL NAE SCH (08:46)
[2021-12-19] MEDS: GABAPENTIN 800 MG TAB PO SCH ×3 (08:46→20:23)
[2021-12-19] MEDS: FUROSEMIDE 40 MG/4 ML VIAL IV SCH ×2 (08:46→17:58)
[2021-12-19] MEDS: INSULIN GLARGINE SOLOSTAR 100 UNITS/ML 3 ML PEN SC SCH ×2 (08:47→20:26)
[2021-12-19] MEDS: NICOTINE 21 MG/24 HR TDSY TD SCH (08:48)
[2021-12-19] MEDS: UMECLIDINIUM BROMIDE 62.5MCG/BLISTER 7 PUFFS/INHALER INH SCH (08:48)
[2021-12-19] MEDS: buprenorphine HCL 8 MG SUBL SL SCH ×2 (08:55→20:22)
[2021-12-19 09:11] LABS: Basophils # (auto) 0.04 K/uL (0-0.2); Basophils % (auto) 0.4 %; Eosinophils # (auto) 0.65 K/uL (0-0.5); Eosinophils % (auto) 6.3 %; Hematocrit (blood only) 38.2 % (42-52); Hemoglobin 11.9 g/dL (14.0-18.0); Immature Granulocytes # (auto) 0.04 K/uL (0.00-0.02); Immature Granulocytes % (auto) 0.4 %; Lymphocytes # (auto) 2.39 K/uL (1.2-3.4); Lymphocytes % (auto) 23.3 %; Mean Corpuscular Hemoglobin 25.4 pg (25-34); Mean Corpuscular Hgb Conc 31.2 g/dL (32-36); Mean Corpuscular Volume 81.6 fL (80-100); Mean Platelet Volume 9.5 fL (7.4-10.4); Monocytes # (auto) 0.66 K/uL (0.11-0.59); Monocytes % (auto) 6.4 %; Neutrophils # (auto) 6.49 K/uL (1.4-6.5); Neutrophils % (auto) 63.2 %; Platelet Count 224 K/uL (130-400); RDW Standard Deviation 61.7 fL (36.4-46.3); Red Blood Count 4.68 M/uL (4.7-6.1); White Blood Count 10.27 K/uL (4.8-10.8)
[2021-12-19 09:22] LABS: INR 2.8 (0.9-1.1)
[2021-12-19 09:25] LABS: BUN Creatinine Ratio 10.3 (10-20); Calcium 9.1 mg/dl (8.5-10.1); Creatinine Clr Calc Pharmacy 187.4 ml/min; Est GFR (African American) 115.8 ml/min; Est GFR (Non-African American) 99.9 ml/min; Magnesium 1.8 mg/dl (1.7-2.4); Potassium 3.7 mmol/L (3.5-5.1)
[2021-12-19 09:41] LABS: Polychromasia 1+
[2021-12-19] MEDS ORDERED: ALBUT/IPRATROP 3MG/0.5MG NEB 3 ML VIAL NEB PRN (12:01)
[2021-12-19] MEDS: buprenorphine HCL 2 MG SUBL SL SCH (12:40)
[2021-12-19] MEDS: ACETAMINOPHEN 1000 MG/100 ML IV IV PRN (13:44)
[2021-12-19] MEDS ORDERED: ACETAMINOPHEN 1000 MG/100 ML IV IV PRN (16:35)
--- NOTE | 2021-12-19 16:38 | Hospitalist Progress Note ---
Date of Service December 19, 2021 Assessment & Plan (1) Acute on chronic heart failure with preserved ejection fraction: Plan: Pt is 49 y/o M with PMH DM II, HTN, H/O PE, on Coumadin, diastolic CHF, chronic back pain, COPD, urinary retention with chronic Lloyd that was recently removed after voiding trial, depression, anxiety, history of recurrent hospitalizations, h/o subdural hematoma, SAH, STEMI presented to ER with c/o BLE edema and 30 pound weight gain over past 2 weeks. Uses 4 L oxygen at bedtime. Home O2 sats reported 89 to 92%. Denies cough, fever, chest pain. In ER reported to be hypoxic, improved to 92% on 2 L via nasal cannula, remaining vitals WNL. Negative troponin. BNP: 62. Chest x-ray without acute findings. In ER given 40 mg Lasix IV Acute on chronic diastolic CHF Diuresing well with iv lasix 40 bid, will continue. Continue daily weight, strict I and Os, salt and fluid restriction. Also on aldactone Echo from 07/2021: EF: 60-65%, mild tricuspid regurgitation Monitor renal function, electrolytes while on diuresis Baseline weight of about 200 kg, currently 213 kg. BPH; History urinary retention History Recent UTI secondary to indwelling Lloyd cath. Was treated with course of antibiotics during last admission Lloyd catheter was removed upon discharge 12/03/2021. Patient reports voiding without difficulty at home. Denies dysuria, hematuria Bladder scan as needed Continue tamsulosin, finasteride History PE- On chronic Coumadin; INR 2.8, will hold coumadin dose today and check INR in am COPD (chronic obstructive pulmonary disease): no exacerbation, no wheezes, continue home inhalers, nebs prn. History obesity hypoventilation syndrome- Uses 4 L oxygen at bedtime and as needed DM type 2 (diabetes mellitus, type 2): A1c: 7.6 on 12/16/2021; hold home meds; continue insulin- will adjust as indicated CAD- Denies current chest pain; Continue aspirin, atorvastatin, metoprolol succinate Chronic pain: Continue gabapentin, Suboxone. Will have iv tylenol daily prn for breakthrough pain. Morbid obesity: BMI: 64; Lifestyle modifications recommended DVT Prophylaxis- On Coumadin. INR therpeutic Dispo- Medsurg pending optimization of volume status, on iv lasix Admission and Anticipated Discharge Date Admission Date: December 17, 2021 Subjective Seen and examined at bedside. Asking for iv tylenol twice a day. We discussed about once per day and at nighttime so he can sleep well. He asked for a dose tonight since he already got the dose this morning. Asking how long he will be here. He wanted me to talk to his in person when she comes visit on Wednesday. States some dysuria but his urine did not show any infection, discussed that we will repeat urine culture. Diuresing well but still has significant swelling. No chest pain. No fever or chills. He was off of oxygen this morning but then used it later in the day for comfort, now on 1 L NC. Physical Exam Physical Exam: General: Sitting comfortably in chair, not in distress, on NC 1L HEENT: EOMI, TIAN, MMM Chest: Fair air entry bilaterally with rales CVS: Regular rate and rhythm, normal heart sounds, no murmur Abdomen: Soft, non tender, not distended, normal bowel sounds Neuro: Awake, alert, oriented, conversing well, non focal Extremities: No cyanosis, clubbing, 2+ edema in all extremities Results & Data Results & Data ([facility]) Vital Signs (Past 12 Hours) Vital Signs Temp Pulse Pulse Pulse Resp BP Pulse Ox 12/19/21 14:48 36.7 C 74 18 126/68 96 12/19/21 11:26 36.4 C L 79 20 161/75 H 91 12/19/21 08:19 36.5 C 70 20 158/80 H 95 12/19/21 08:00 67 12/19/21 07:32 91 H 18 95
[2021-12-19] MEDS: ATORVASTATIN 40 MG TAB PO SCH (20:22)
[2021-12-19] MEDS: LORazepam 0.5 MG TAB PO PRN (20:26)
[2021-12-19] MEDS: MELATONIN 3 MG TAB PO PRN (20:26)
[2021-12-19] MEDS: CYCLOBENZAPRINE HCL 10 MG TAB PO PRN (20:27)
[2021-12-20] MEDS: PANTOprazole 40 MG TAB PO SCH (05:55)
[2021-12-20 06:39] LABS: Basophils # (auto) 0.03 K/uL (0-0.2); Basophils % (auto) 0.3 %; Eosinophils # (auto) 0.85 K/uL (0-0.5); Eosinophils % (auto) 8.7 %; Hematocrit (blood only) 36.6 % (42-52); Hemoglobin 11.6 g/dL (14.0-18.0); Immature Granulocytes # (auto) 0.04 K/uL (0.00-0.02); Immature Granulocytes % (auto) 0.4 %; Lymphocytes # (auto) 2.24 K/uL (1.2-3.4); Lymphocytes % (auto) 22.9 %; Mean Corpuscular Hemoglobin 25.6 pg (25-34); Mean Corpuscular Hgb Conc 31.7 g/dL (32-36); Mean Corpuscular Volume 80.8 fL (80-100); Mean Platelet Volume 9.7 fL (7.4-10.4); Monocytes # (auto) 0.66 K/uL (0.11-0.59); Monocytes % (auto) 6.7 %; Neutrophils # (auto) 5.96 K/uL (1.4-6.5); Platelet Count 233 K/uL (130-400); RDW Standard Deviation 61.3 fL (36.4-46.3); Red Blood Count 4.53 M/uL (4.7-6.1); White Blood Count 9.78 K/uL (4.8-10.8)
[2021-12-20 06:45] LABS: INR 2.5 (0.9-1.1); Prothrombin Time 24.9 Seconds (9.0-12.0)
[2021-12-20 06:58] LABS: Calcium 9.1 mg/dl (8.5-10.1); Creatinine Clr Calc Pharmacy 209.6 ml/min; Est GFR (African American) 121.8 ml/min; Est GFR (Non-African American) 105.1 ml/min; Magnesium 1.7 mg/dl (1.7-2.4); Potassium 3.8 mmol/L (3.5-5.1)
[2021-12-20 08:12] LABS: RBC Morphology Unremarkable
[2021-12-20] MEDS: FLUTICASONE PROPIONATE NA SPR 16 GM BTL NAE SCH (08:22)
[2021-12-20] MEDS: METOPROLOL SUCC 25MG EXT REL TAB PO SCH ×2 (08:22→20:15)
[2021-12-20] MEDS: UMECLIDINIUM BROMIDE 62.5MCG/BLISTER 7 PUFFS/INHALER INH SCH (08:22)
[2021-12-20] MEDS: DULoxetine HCL 60 MG CAP PO SCH (08:23)
[2021-12-20] MEDS: POTASSIUM CHLORIDE CRTAB 20 MEQ TABCR PO SCH ×2 (08:23→20:15)
[2021-12-20] MEDS: DOCUSATE SODIUM 100 MG CAP PO SCH ×2 (08:23→20:15)
[2021-12-20] MEDS: FERROUS SULFATE 325 MG TAB PO SCH (08:23)
[2021-12-20] MEDS: guaiFENesin 600 MG TABCR PO SCH ×2 (08:23→20:15)
[2021-12-20] MEDS: GABAPENTIN 800 MG TAB PO SCH ×3 (08:23→20:15)
[2021-12-20] MEDS: NICOTINE 21 MG/24 HR TDSY TD SCH (08:23)
[2021-12-20] MEDS: FINASTERIDE 5 MG TAB PO SCH (08:24)
[2021-12-20] MEDS: ASPIRIN 81 MG ECTAB PO SCH (08:24)
[2021-12-20] MEDS: ISOSORBIDE MONO EXTENDED REL 30 MG TABCR PO SCH (08:24)
[2021-12-20] MEDS: MAGNESIUM OXIDE 400 MG TAB PO SCH (08:24)
[2021-12-20] MEDS: FAMOTIDINE 20 MG TAB PO SCH (08:24)
[2021-12-20] MEDS: FOLIC ACID 1 MG TAB PO SCH (08:24)
[2021-12-20] MEDS: SPIRONOLACTONE 25 MG TAB PO SCH (08:24)
[2021-12-20] MEDS: TAMSULOSIN HCL 0.4 MG CAP PO SCH (08:24)
[2021-12-20] MEDS: FUROSEMIDE 40 MG/4 ML VIAL IV SCH ×2 (08:26→17:06)
[2021-12-20] MEDS: INSULIN ASPART PER UNIT SC SCH ×4 (08:36→20:16)
[2021-12-20] MEDS: buprenorphine HCL 8 MG SUBL SL SCH ×2 (08:41→20:14)
[2021-12-20] MEDS: INSULIN GLARGINE SOLOSTAR 100 UNITS/ML 3 ML PEN SC SCH ×2 (08:41→20:16)
[2021-12-20] MEDS: ACETAMINOPHEN 1000 MG/100 ML IV IV PRN ×2 (09:39→20:17)
[2021-12-20] MEDS: buprenorphine HCL 2 MG SUBL SL SCH (12:24)
[2021-12-20] MEDS ORDERED: SODIUM CHLORIDE 0.65% NA SOLN 45 ML (OCEAN) PRN (13:59)
[2021-12-20] MEDS: CYCLOBENZAPRINE HCL 10 MG TAB PO PRN ×2 (14:52→20:17)
[2021-12-20] MEDS: WARFARIN SOD 2.5 MG TAB PO SCH (16:04)
--- NOTE | 2021-12-20 17:11 | Hospitalist Progress Note ---
Date of Service December 20, 2021 Assessment & Plan (1) Acute on chronic heart failure with preserved ejection fraction: Plan: Pt is 49 y/o M with PMH DM II, HTN, H/O PE, on Coumadin, diastolic CHF, chronic back pain, COPD, urinary retention with chronic Lloyd that was recently removed after voiding trial, depression, anxiety, history of recurrent hospitalizations, h/o subdural hematoma, SAH, STEMI presented to ER with c/o BLE edema and 30 pound weight gain over past 2 weeks. Uses 4 L oxygen at bedtime. Home O2 sats reported 89 to 92%. Denies cough, fever, chest pain. In ER reported to be hypoxic, improved to 92% on 2 L via nasal cannula, remaining vitals WNL. Negative troponin. BNP: 62. Chest x-ray without acute findings. In ER given 40 mg Lasix IV Acute on chronic diastolic CHF Diuresing well with iv lasix 40 bid, will continue. Continue daily weight, strict I and Os, salt and fluid restriction. Also on aldactone Echo from 07/2021: EF: 60-65%, mild tricuspid regurgitation Monitor renal function, electrolytes while on diuresis Baseline weight of about 200 kg, currently down to 210 kg from 214 kg on admission BPH; History urinary retention History Recent UTI secondary to indwelling Lloyd cath. Was treated with course of antibiotics during last admission Lloyd catheter was removed upon discharge 12/03/2021. Patient reports voiding without difficulty at home. Denies dysuria, hematuria Bladder scan as needed Continue tamsulosin, finasteride History PE- On chronic Coumadin; INR 2.5 today, will resume coumadin and check INR in am COPD (chronic obstructive pulmonary disease): no exacerbation, no wheezes, continue home inhalers, nebs prn. History obesity hypoventilation syndrome- Uses 4 L oxygen at bedtime and as needed DM type 2 (diabetes mellitus, type 2): A1c: 7.6 on 12/16/2021; hold home meds; continue insulin- will adjust as indicated CAD- Denies current chest pain; Continue aspirin, atorvastatin, metoprolol succinate Chronic pain: Continue gabapentin, Suboxone. Will have iv tylenol daily prn for breakthrough pain. Morbid obesity: BMI: 64; Lifestyle modifications recommended DVT Prophylaxis- On Coumadin. INR therpeutic Dispo- Medsurg pending optimization of volume status, on iv lasix Admission and Anticipated Discharge Date Admission Date: December 17, 2021 Subjective Seen and examined at bedside. States he is in severe pain and can not tolerate po tylenol due to stomach issues and requesting for iv tylenol twice a day. Swelling slightly down. Diuresing well. He wants me to talk to his tomorrow at bedside. Physical Exam Physical Exam: General: Sitting comfortably in bed, not in distress, on NC 1L HEENT: EOMI, TIAN, MMM Chest: Fair air entry bilaterally with rales CVS: Regular rate and rhythm, normal heart sounds, no murmur Abdomen: Soft, non tender, not distended, normal bowel sounds Neuro: Awake, alert, oriented, conversing well, non focal Extremities: No cyanosis, clubbing, 2+ edema in all extremities Results & Data Results & Data ([facility]) Vital Signs (Past 12 Hours) Vital Signs Temp Pulse Pulse Resp BP BP Pulse Ox 12/20/21 15:34 36.6 C 83 18 106/60 95 12/20/21 14:56 79 12/20/21 11:22 36.6 C 79 18 98/59 L 96 12/20/21 07:23 72 12/20/21 07:20 36.5 C 74 18 137/72 99
[2021-12-20] MEDS: ATORVASTATIN 40 MG TAB PO SCH (20:14)
[2021-12-20] MEDS: MELATONIN 3 MG TAB PO PRN (20:16)
[2021-12-20] MEDS: LORazepam 0.5 MG TAB PO PRN (20:17)
[2021-12-21] MEDS: PANTOprazole 40 MG TAB PO SCH (05:53)
[2021-12-21 06:59] LABS: INR 1.9 (0.9-1.1); Prothrombin Time 19.3 Seconds (9.0-12.0)
[2021-12-21 07:20] LABS: Calcium 8.8 mg/dl (8.5-10.1); Creatinine Clr Calc Pharmacy 160.7 ml/min; Est GFR (African American) 100.6 ml/min; Est GFR (Non-African American) 86.8 ml/min; Magnesium 1.7 mg/dl (1.7-2.4); Potassium 3.8 mmol/L (3.5-5.1)
[2021-12-21] MEDS: ASPIRIN 81 MG ECTAB PO SCH (08:26)
[2021-12-21] MEDS: FOLIC ACID 1 MG TAB PO SCH (08:26)
[2021-12-21] MEDS: FERROUS SULFATE 325 MG TAB PO SCH (08:26)
[2021-12-21] MEDS: DOCUSATE SODIUM 100 MG CAP PO SCH ×2 (08:26→20:25)
[2021-12-21] MEDS: METOPROLOL SUCC 25MG EXT REL TAB PO SCH ×2 (08:26→20:26)
[2021-12-21] MEDS: ISOSORBIDE MONO EXTENDED REL 30 MG TABCR PO SCH (08:26)
[2021-12-21] MEDS: DULoxetine HCL 60 MG CAP PO SCH (08:26)
[2021-12-21] MEDS: FAMOTIDINE 20 MG TAB PO SCH (08:26)
[2021-12-21] MEDS: FINASTERIDE 5 MG TAB PO SCH (08:26)
[2021-12-21] MEDS: SPIRONOLACTONE 25 MG TAB PO SCH (08:26)
[2021-12-21] MEDS: FLUTICASONE PROPIONATE NA SPR 16 GM BTL NAE SCH (08:27)
[2021-12-21] MEDS: FUROSEMIDE 40 MG/4 ML VIAL IV SCH ×2 (08:27→17:12)
[2021-12-21] MEDS: GABAPENTIN 800 MG TAB PO SCH ×3 (08:27→20:24)
[2021-12-21] MEDS: MAGNESIUM OXIDE 400 MG TAB PO SCH (08:27)
[2021-12-21] MEDS: TAMSULOSIN HCL 0.4 MG CAP PO SCH (08:29)
[2021-12-21] MEDS: UMECLIDINIUM BROMIDE 62.5MCG/BLISTER 7 PUFFS/INHALER INH SCH (08:29)
[2021-12-21] MEDS: guaiFENesin 600 MG TABCR PO SCH ×2 (08:29→20:25)
[2021-12-21] MEDS: NICOTINE 21 MG/24 HR TDSY TD SCH (08:29)
[2021-12-21] MEDS: ACETAMINOPHEN 1000 MG/100 ML IV IV PRN ×2 (08:35→20:37)
[2021-12-21] MEDS: INSULIN ASPART PER UNIT SC SCH ×4 (08:37→20:42)
[2021-12-21] MEDS: INSULIN GLARGINE SOLOSTAR 100 UNITS/ML 3 ML PEN SC SCH ×2 (08:38→20:38)
[2021-12-21] MEDS: buprenorphine HCL 8 MG SUBL SL SCH ×2 (08:45→20:23)
[2021-12-21] MEDS: POTASSIUM CHLORIDE CRTAB 20 MEQ TABCR PO SCH ×2 (08:45→20:27)
[2021-12-21 12:01] LABS: Appearance Urine Clear (Clear); Bilirubin Urine Negative (Negative); Blood Urine Negative (Negative); Color Urine Yellow; Glucose Urine UA Negative (Negative); Ketones Urine Negative (Negative); Leukocyte Esterase Urine Negative (Negative); Nitrite Urine Negative (Negative); Protein Urine Negative (Negative); Specific Gravity Urine 1.011 (1.000-1.030); Urobilinogen Urine Negative (Negative)
[2021-12-21] MEDS: buprenorphine HCL 2 MG SUBL SL SCH (12:11)
[2021-12-21] MEDS: WARFARIN SOD 2.5 MG TAB PO SCH (15:55)
[2021-12-21] MEDS ORDERED: WARFARIN SOD 2 MG TAB PO ONE (16:00)
--- NOTE | 2021-12-21 16:32 | Hospitalist Progress Note ---
Date of Service December 21, 2021 Assessment & Plan (1) Acute on chronic heart failure with preserved ejection fraction: Plan: Pt is 49 y/o M with PMH DM II, HTN, H/O PE, on Coumadin, diastolic CHF, chronic back pain, COPD, urinary retention with chronic Lloyd that was recently removed after voiding trial, depression, anxiety, history of recurrent hospitalizations, h/o subdural hematoma, SAH, STEMI presented to ER with c/o BLE edema and 30 pound weight gain over past 2 weeks. Uses 4 L oxygen at bedtime. Home O2 sats reported 89 to 92%. Denies cough, fever, chest pain. In ER reported to be hypoxic, improved to 92% on 2 L via nasal cannula, remaining vitals WNL. Negative troponin. BNP: 62. Chest x-ray without acute findings. In ER given 40 mg Lasix IV Acute on chronic diastolic CHF Diuresing well with iv lasix 40 bid, will continue. Continue daily weight, strict I and Os, salt and fluid restriction-fluid restriction increased to 1800cc. Also on aldactone Echo from 07/2021: EF: 60-65%, mild tricuspid regurgitation Monitor renal function, electrolytes while on diuresis Baseline weight of about 200 kg, currently down to 208 kg from 214 kg on admission BPH; History urinary retention History Recent UTI secondary to indwelling Lloyd cath. Was treated with course of antibiotics during last admission Lloyd catheter was removed upon discharge 12/03/2021. Patient reports voiding without difficulty at home. Denies dysuria, hematuria Bladder scan as needed Continue tamsulosin, finasteride History PE- On chronic Coumadin; INR 1.9 today, will give an extra dose of Coumadin today and check INR in am COPD (chronic obstructive pulmonary disease): no exacerbation, no wheezes, continue home inhalers, nebs prn. History obesity hypoventilation syndrome- Uses 4 L oxygen at bedtime and as needed DM type 2 (diabetes mellitus, type 2): A1c: 7.6 on 12/16/2021; hold home meds; continue insulin- will adjust as indicated CAD- Denies current chest pain; Continue aspirin, atorvastatin, metoprolol succinate Chronic pain: Continue gabapentin, Suboxone. Will have iv tylenol bid prn for breakthrough pain. Morbid obesity: BMI: 64; Lifestyle modifications recommended DVT Prophylaxis- On Coumadin Dispo- Medsurg pending optimization of volume status, on iv lasix Admission and Anticipated Discharge Date Admission Date: December 17, 2021 Subjective Patient was seen and examined at bedside in presence of . He would like the fluid restriction to be increased to 1800 cc. States that he has been on fluid restriction 2000 cc at home and in prior admissions and [address] for him as he can get his Diet soda 3 times a day with that restriction. Having good diuresis but still very puffy. States he twisted his left foot at home and is hurting now whenever he tries to stand up and requesting an x-ray. No other issues. Physical Exam Physical Exam: General: Sitting comfortably in chair, not in distress, on NC HEENT: EOMI, TIAN, MMM Chest: Fair air entry bilaterally with rales CVS: Regular rate and rhythm, normal heart sounds, no murmur Abdomen: Soft, non tender, not distended, normal bowel sounds Neuro: Awake, alert, oriented, conversing well, non focal Extremities: No cyanosis, clubbing, 2+ edema in all extremities Results & Data Results & Data ([facility]) Vital Signs (Past 12 Hours) Vital Signs Temp Pulse Pulse Resp BP BP Pulse Ox 12/21/21 16:15 36.7 C 72 18 117/68 96 12/21/21 14:34 71 12/21/21 11:10 36.7 C 77 18 101/62 96 12/21/21 07:27 65 12/21/21 07:22 36.6 C 72 18 113/69 96 Laboratory Results [facility] 12/21/21 06:17 Sodium 142 Potassium 3.8 Chloride 100 Carbon Dioxide 38 H BUN 12 Creatinine 1.00 Glucose 111 H Calcium 8.8 Urine 12/21/21 Range/Units 11:34 Urine Color Yellow Urine Appearance Clear (Clear) Urine pH 7.0 (4.5-7.5) Ur Specific [place] 1.011 (1.000-1.030) Urine Protein Negative (Negative) Urine Glucose (UA) Negative (Negative) Medications Administered Current Inpatient Medications Acetaminophen (Acetaminophen 325 Mg Tab) 650 mg PO Q4H PRN PRN Reason: Pain or Fever Stop: 01/16/22 22:10 Acetaminophen (Acetaminophen 1000 Mg/100 Ml Iv) 1,000 mg IV BID PRN PRN Reason: Severe Pain Stop: 12/22/21 16:34 Last Admin: 04/03/22 08:35 Dose: 1,000 mg Documented by: Albuterol (Albut/Ipratrop 3mg/0.5mg Neb 3 Ml Vial) 3 ml NEB QIDR PRN; Protocol PRN Reason: Shortness Of Breath Or Wheezing Stop: 01/17/22 06:59 Albuterol (Albuterol Hfa 8 Gm Inhaler) 2 puffs INH Q4 PRN PRN Reason: Shortness Of Breath Or Wheezing Stop: 01/18/22 12:00 Aspirin (Aspirin 81 Mg Ectab) 81 mg PO QAM [facility] Stop: 01/17/22 08:59 Last Admin: 12/21/21 08:26 Dose: 81 mg Documented by: Atorvastatin Calcium (Atorvastatin 40 Mg Tab) 80 mg PO QPM [facility] Stop: 01/16/22 22:10 Last Admin: 12/20/21 20:14 Dose: 80 mg Documented by: Buprenorphine HCl (Buprenorphine Hcl 8 Mg Subl) 8 mg SL BID [facility] Stop: 01/17/22 08:59 Last Admin: 12/21/21 08:45 Dose: 8 mg Documented by: Buprenorphine HCl (Buprenorphine Hcl 2 Mg Subl) 4 mg SL DAILY@1200 [facility] Stop: 01/17/22 11:59 Last Admin: 12/21/21 12:11 Dose: 4 mg Documented by: Cyclobenzaprine HCl (Cyclobenzaprine Hcl 10 Mg Tab) 10 mg PO BID PRN PRN Reason: Muscle Spasm Stop: 01/16/22 22:10 Last Admin: 12/20/21 20:17 Dose: 10 mg Documented by: Dextrose (Dextrose 50% 50 Ml Syringe) 25 - 50 ml IV UD PRN; Protocol PRN Reason: Hypoglycemia Protocol Stop: 01/16/22 22:10 Docusate Sodium (Docusate Sodium 100 Mg Cap) 100 mg PO BID [facility] Stop: 01/16/22 22:10 Last Admin: 12/21/21 08:26 Dose: 100 mg Documented by: Duloxetine HCl (Duloxetine Hcl 60 Mg Cap) 60 mg PO DAILY [facility] Stop: 01/17/22 08:59 Last Admin: 12/21/21 08:26 Dose: 60 mg Documented by: Famotidine (Famotidine 20 Mg Tab) 20 mg PO DAILY [facility] Stop: 01/17/22 08:59 Last Admin: 12/21/21 08:26 Dose: 20 mg Documented by: Ferrous Sulfate (Ferrous Sulfate 325 Mg Tab) 325 mg PO QAM EMPERATRIZ Stop: 01/17/22 08:59 Last Admin: 12/21/21 08:26 Dose: 325 mg Documented by: Finasteride (Finasteride 5 Mg Tab) 5 mg PO QAM [facility] Stop: 01/17/22 08:59 Last Admin: 12/21/21 08:26 Dose: 5 mg Documented by: Fluticasone Propionate (Fluticasone Propionate Na Spr 16 Gm Btl) 2 sprays HANSA DAILY EMPERATRIZ Stop: 01/17/22 08:59 Last Admin: 12/21/21 08:27 Dose: 2 sprays Documented by: Folic Acid (Folic Acid 1 Mg Tab) 1 mg PO QAM [facility]MP[facility] Stop: 01/17/22 08:59 Last Admin: 12/21/21 08:26 Dose: 1 mg Documented by: Furosemide (Furosemide 40 Mg/4 Ml Vial) 40 mg IV BID17 EMPERATRIZ Stop: 01/17/22 08:59 Last Admin: 12/21/21 08:27 Dose: 40 mg Documented by: Gabapentin (Gabapentin 800 Mg Tab) 800 mg PO TID EMPERATRIZ Stop: 01/16/22 22:10 Last Admin: 12/21/21 13:41 Dose: 800 mg Documented by: Glucagon (Glucagon For Inj 1 Mg Vial) 1 mg SQ UD PRN; Protocol PRN Reason: Hypoglycemia Protocol Stop: 01/16/22 22:10 Glucose (Glucose 10 Tabs/Tube) 4 - 8 tabs PO UD PRN; Protocol PRN Reason: Hypoglycemia Protocol Stop: 01/16/22 22:10 Glucose (Glucose 40% Gel 15 Gm Tube) 15 - 30 gm PO UD PRN; Protocol PRN Reason: Hypoglycemia Protocol Stop: 01/16/22 22:10 Guaifenesin (Guaifenesin 600 Mg Tabcr) 1,200 mg PO Q12 EMPER[facility]RIZ Stop: 01/20/22 20:59 Hydroxyzine HCl (Hydroxyzine Hcl 25 Mg Tab) 25 mg PO QID PRN PRN Reason: Anxiety Stop: 01/16/22 22:10 Insulin Aspart (Insulin Aspart Per Unit) 0 units SC ACHS EMP[facility]RIZ Stop: 01/16/22 22:10 Last Admin: 12/21/21 12:10 Dose: 12 units Documented by: Insulin Glargine (Insulin Glargine Solostar 100 Units/Ml 3 Ml Pen) 25 units SC BID [facility] Stop: 01/16/22 22:10 Last Admin: 12/21/21 08:38 Dose: 25 units Documented by: Isosorbide Mononitrate (Isosorbide [place] Extended Rel 30 Mg Tabcr) 30 mg PO DAILY EMP[facility]ATRIZ Stop: 01/17/22 08:59 Last Admin: 12/21/21 08:26 Dose: 30 mg Documented by: Lorazepam (Lorazepam 0.5 Mg Tab) 0.5 mg PO Q8 PRN PRN Reason: Anxiety Stop: 01/16/22 22:10 Last Admin: 12/20/21 20:17 Dose: 0.5 mg Documented by: Magnesium Oxide (Magnesium Oxide 400 Mg Tab) 400 mg PO DAILY [facility] Stop: 01/17/22 08:59 Last Admin: 12/21/21 08:27 Dose: 400 mg Documented by: Melatonin (Melatonin 3 Mg Tab) 9 mg PO HS PRN PRN Reason: Sleep Stop: 01/17/22 01:04 Last Admin: 12/20/21 20:16 Dose: 9 mg Documented by: Metoprolol Succinate (Metoprolol Succ 25mg Ext Rel Tab) 75 mg PO BID [facility] Stop: 01/16/22 22:10 Last Admin: 12/21/21 08:26 Dose: 75 mg Documented by: Miscellaneous (Carbohydrates For Hypoglycemia ) 15 - 30 gm PO UD PRN PRN Reason: Hypoglycemia Protocol Stop: 01/16/22 22:10 Miscellaneous (Urea 20% Cream - Order Awaiting Action) 1 ea N/A QS [facility] Stop: 01/17/22 00:00 Last Admin: 12/21/21 16:01 Dose: Not Given Documented by: Miscellaneous (Remove Nicoderm Patch) 1 ea N/A DAILY@0859 [facility] Stop: 01/18/22 08:58 Last Admin: 12/21/21 08:27 Dose: 1 ea Documented by: Nicotine (Nicotine 21 Mg/24 Hr Tdsy) 21 mg TD QAM [facility] Stop: 01/17/22 15:29 Last Admin: 12/21/21 08:29 Dose: 21 mg Documented by: Nitroglycerin (Nitroglycerin Sl 0.4 Mg/Tab Tab) 0.4 mg SL UD PRN PRN Reason: CHEST PAIN Stop: 01/16/22 22:10 Ondansetron HCl (Ondansetron Inj 2 Mg/Ml 2 Ml Vial) 4 mg IV Q6H PRN PRN Reason: Nausea Stop: 01/16/22 22:10 Last Admin: 12/18/21 04:16 Dose: 4 mg Documented by: Pantoprazole Sodium (Pantoprazole 40 Mg Tab) 40 mg PO DAILYBB [facility] Stop: 01/17/22 06:29 Last Admin: 12/21/21 05:53 Dose: 40 mg Documented by: Polyethylene Glycol (Polyethylene (Miralax) 17 Gm Pack) 17 gm PO DAILY PRN PRN Reason: Constipation Stop: 01/16/22 22:10 Potassium Chloride (Potassium Chloride Crtab 20 Meq Tabcr) 20 meq PO BID [facility] Stop: 01/16/22 22:10 Last Admin: 12/21/21 08:45 Dose: 20 meq Documented by: Sodium Chloride (Sodium Chloride 0.65% Na Soln 45 Ml ([place])) 2 sprays NA PRN PRN PRN Reason: Nasal Congestion Stop: 01/19/22 13:58 Last Admin: 12/20/21 14:43 Dose: 2 sprays Documented by: Spironolactone (Spironolactone 25 Mg Tab) [address] [facility] Stop: 01/17/22 08:59 Last Admin: 12/21/21 08:26 Dose: 25 mg Documented by: Tamsulosin HCl (Tamsulosin Hcl 0.4 Mg Cap) [facility] Stop: 01/17/22 08:59 Last Admin: 12/21/21 08:29 Dose: 0.4 mg Documented by: Umeclidinium [place] (Umeclidinium [place] 62.5mcg/Blister 7 Puffs/Inhaler) 1 [facility] Stop: 01/17/22 08:59 Last Admin: 12/21/21 08:29 Dose: 1 puffs Documented by: Warfarin Sodium (Warfarin Sod 5 Mg Tab) 5 mg PO We@1600 [facility] Stop: 01/16/22 22:10 Last Admin: 12/17/21 23:48 Dose: 5 mg Documented by: Warfarin Sodium (Warfarin Sod 2.5 Mg Tab) 2.5 mg PO SuMoTuThFrSa@1600 [facility] Stop: 01/17/22 15:59 Last Admin: 12/21/21 15:55 Dose: 2.5 mg Documented by:
--- NOTE | 2021-12-21 17:32 | XRay Report ---
XR foot LT min 3V routine CLINICAL HISTORY: left foot pain, after twisting left foot COMPARISON: Left ankle radiographs May 11, 2019. FINDINGS: Diffuse soft tissue swelling is present. Alignment of the left foot is anatomic. [place] tarsal joints are intact. No acute fracture is identified. There is minimal posterior calcaneal spurr ing. Incidental note is made of soft tissue calcifications of the lower leg which project medial to t he left tibia. IMPRESSION: 1. No acute fracture or dislocation within the left foot. 2. Diffuse soft tissue swelling. ACT 112: Negative or not required by law. Electronically signed by: Evelio Corbin M.D. 12/21/2021 5:31 PM
[2021-12-21] MEDS: ATORVASTATIN 40 MG TAB PO SCH (20:23)
[2021-12-21] MEDS: DOCUSATE SODIUM/SENNA 50/8.6MG TAB PO SCH (20:24)
[2021-12-21] MEDS: MELATONIN 3 MG TAB PO PRN (20:27)
[2021-12-21] MEDS: CYCLOBENZAPRINE HCL 10 MG TAB PO PRN (20:27)
[2021-12-21] MEDS: LORazepam 0.5 MG TAB PO PRN (20:27)
[2021-12-22] MEDS: PANTOprazole 40 MG TAB PO SCH (05:57)
[2021-12-22] MEDS: ASPIRIN 81 MG ECTAB PO SCH (08:40)
[2021-12-22] MEDS: METOPROLOL SUCC 25MG EXT REL TAB PO SCH ×2 (08:41→20:51)
[2021-12-22] MEDS: ISOSORBIDE MONO EXTENDED REL 30 MG TABCR PO SCH (08:41)
[2021-12-22] MEDS: MAGNESIUM OXIDE 400 MG TAB PO SCH (08:41)
[2021-12-22] MEDS: POTASSIUM CHLORIDE CRTAB 20 MEQ TABCR PO SCH ×2 (08:41→20:51)
[2021-12-22] MEDS: TAMSULOSIN HCL 0.4 MG CAP PO SCH (08:41)
[2021-12-22] MEDS: FOLIC ACID 1 MG TAB PO SCH (08:42)
[2021-12-22] MEDS: SPIRONOLACTONE 25 MG TAB PO SCH (08:42)
[2021-12-22] MEDS: FINASTERIDE 5 MG TAB PO SCH (08:42)
[2021-12-22] MEDS: FERROUS SULFATE 325 MG TAB PO SCH (08:42)
[2021-12-22] MEDS: FAMOTIDINE 20 MG TAB PO SCH (08:42)
[2021-12-22] MEDS: DULoxetine HCL 60 MG CAP PO SCH (08:42)
[2021-12-22] MEDS: GABAPENTIN 800 MG TAB PO SCH ×3 (08:43→20:49)
[2021-12-22] MEDS: DOCUSATE SODIUM 100 MG CAP PO SCH (08:43)
[2021-12-22] MEDS: DOCUSATE SODIUM/SENNA 50/8.6MG TAB PO SCH ×2 (08:43→20:49)
[2021-12-22] MEDS: guaiFENesin 600 MG TABCR PO SCH ×2 (08:43→20:50)
[2021-12-22] MEDS: NICOTINE 21 MG/24 HR TDSY TD SCH (08:44)
[2021-12-22] MEDS: FLUTICASONE PROPIONATE NA SPR 16 GM BTL NAE SCH (08:52)
[2021-12-22] MEDS: FUROSEMIDE 40 MG/4 ML VIAL IV SCH ×2 (08:54→16:56)
[2021-12-22] MEDS: UMECLIDINIUM BROMIDE 62.5MCG/BLISTER 7 PUFFS/INHALER INH SCH (08:57)
[2021-12-22] MEDS: INSULIN GLARGINE SOLOSTAR 100 UNITS/ML 3 ML PEN SC SCH ×2 (08:57→21:02)
[2021-12-22] MEDS: INSULIN ASPART PER UNIT SC SCH ×4 (08:59→21:02)
[2021-12-22] MEDS: buprenorphine HCL 8 MG SUBL SL SCH ×2 (09:30→20:47)
[2021-12-22 09:55] LABS: Calcium 9.2 mg/dl (8.5-10.1); Creatinine Clr Calc Pharmacy 160.2 ml/min; Est GFR (African American) 100.6 ml/min; Est GFR (Non-African American) 86.8 ml/min; Magnesium 1.8 mg/dl (1.7-2.4); Potassium 4.3 mmol/L (3.5-5.1)
[2021-12-22 10:03] LABS: INR 1.5 (0.9-1.1); Prothrombin Time 16.1 Seconds (9.0-12.0)
[2021-12-22] MEDS ORDERED: LACTULOSE SYRUP 20 GM/30 ML UDC PO ONE (11:15)
[2021-12-22] MEDS ORDERED: LACTULOSE SYRUP 10 GM/15 ML BTL 960 ML PO ONE (11:15)
[2021-12-22] MEDS: ENOXAPARIN INJ 40 MG/0.4 ML SYR SQ SCH (12:06)
[2021-12-22] MEDS: buprenorphine HCL 2 MG SUBL SL SCH (12:24)
--- NOTE | 2021-12-22 14:12 | Hospitalist Progress Note ---
Date of Service December 22, 2021 Assessment & Plan (1) Acute on chronic heart failure with preserved ejection fraction: Plan: Pt is 49 y/o M with PMH DM II, HTN, H/O PE, on Coumadin, diastolic CHF, chronic back pain, COPD, urinary retention with chronic Lloyd that was recently removed after voiding trial, depression, anxiety, history of recurrent hospitalizations, h/o subdural hematoma, SAH, STEMI presented to ER with c/o BLE edema and 30 pound weight gain over past 2 weeks. Uses 4 L oxygen at bedtime. Home O2 sats reported 89 to 92%. Denies cough, fever, chest pain. In ER reported to be hypoxic, improved to 92% on 2 L via nasal cannula, remaining vitals WNL. Negative troponin. BNP: 62. Chest x-ray without acute findings. In ER given 40 mg Lasix IV Acute on chronic diastolic CHF Diuresing well with iv lasix 40 bid, will continue. Continue daily weight, strict I and Os, salt and fluid restriction-fluid restriction increased to 1800cc. Also on aldactone Echo from 07/2021: EF: 60-65%, mild tricuspid regurgitation Monitor renal function, electrolytes while on diuresis Baseline weight of about 200 kg, weight on admission 214 kg-> 210 kg->208kg->207 kg BPH- his chronic Lloyd was removed on 12/03/2021. Currently voiding without issues. Continue tamsulosin, finasteride History PE- On chronic Coumadin; INR 1.5 today, will give an extra dose of Coumadin today and check INR in am COPD (chronic obstructive pulmonary disease): no exacerbation, no wheezes, continue home inhalers, nebs prn. History obesity hypoventilation syndrome- Uses 4 L oxygen at bedtime and as needed DM type 2 (diabetes mellitus, type 2): A1c: 7.6 on 12/16/2021; hold home meds; continue insulin- will adjust as indicated CAD- Denies current chest pain; Continue aspirin, atorvastatin, metoprolol succinate Chronic pain: Continue gabapentin, Suboxone. Will have iv tylenol bid prn for breakthrough pain. Morbid obesity: BMI: 64; Lifestyle modifications recommended DVT Prophylaxis- On Coumadin-we will continue subcu Lovenox until INR therapeuti c. Does not need full dose. Dispo- Medsurg pending optimization of volume status, on iv lasix Admission and Anticipated Discharge Date Admission Date: December 17, 2021 Subjective Patient was seen and examined at bedside. He denies any new complaints. States he still does not have a bowel movement and asking for additional laxative. He does not want a suppository at this point. Weight and swelling coming down but still with significant edema. Now able to expectorate better. Denies any chest pain or shortness of breath no nausea or vomiting. Physical Exam Physical Exam: General: Sitting comfortably in chair, not in distress, on NC HEENT: EOMI, TIAN, MMM Chest: Fair air entry bilaterally with rales CVS: Regular rate and rhythm, normal heart sounds, no murmur Abdomen: Soft, non tender, not distended, normal bowel sounds Neuro: Awake, alert, oriented, conversing well, non focal Extremities: No cyanosis, clubbing, 2+ edema in all extremities Results & Data Results & Data ([facility]) Vital Signs (Past 12 Hours) Vital Signs Temp Pulse Pulse Resp BP BP Pulse Ox 12/22/21 11:03 36.7 C 72 20 116/66 96 12/22/21 07:49 37.0 C 71 22 126/72 96 12/22/21 07:00 67 12/22/21 03:10 36.7 C 75 20 111/67 94 Laboratory Results [facility] 12/22/21 08:49 Sodium 139 Potassium 4.3 Chloride 98 Carbon Dioxide 36 H BUN 14 Creatinine 1.00 Glucose 179 H Calcium 9.2 Medications Administered Current Inpatient Medications Acetaminophen (Acetaminophen 325 Mg Tab) 650 mg PO Q4H PRN PRN Reason: Pain or Fever Stop: 01/16/22 22:10 Acetaminophen (Acetaminophen 1000 Mg/100 Ml Iv) 1,000 mg IV BID PRN PRN Reason: Severe Pain Stop: 12/22/21 16:34 Last Admin: 12/21/21 20:37 Dose: 1,000 mg Documented by: Albuterol (Albut/Ipratrop 3mg/0.5mg Neb 3 Ml Vial) 3 ml NEB QIDR PRN; Protocol PRN Reason: Shortness Of Breath Or Wheezing Stop: 01/17/22 06:59 Albuterol (Albuterol Hfa 8 Gm Inhaler) 2 puffs INH Q4 PRN PRN Reason: Shortness Of Breath Or Wheezing Stop: 01/18/22 12:00 Aspirin (Aspirin 81 Mg Ectab) 81 mg PO QAM [facility] Stop: 01/17/22 08:59 Last Admin: 12/22/21 08:40 Dose: 81 mg Documented by: Atorvastatin Calcium (Atorvastatin 40 Mg Tab) 80 mg PO QPM [facility] Stop: 01/16/22 22:10 Last Admin: 12/21/21 20:23 Dose: 80 mg Documented by: Buprenorphine HCl (Buprenorphine Hcl 8 Mg Subl) 8 mg SL BID [facility] Stop: 01/17/22 08:59 Last Admin: 12/22/21 09:30 Dose: 8 mg Documented by: Buprenorphine HCl (Buprenorphine Hcl 2 Mg Subl) 4 mg SL DAILY@1200 [facility] Stop: 01/17/22 11:59 Last Admin: 12/22/21 12:24 Dose: 4 mg Documented by: Cyclobenzaprine HCl (Cyclobenzaprine Hcl 10 Mg Tab) 10 mg PO BID PRN PRN Reason: Muscle Spasm Stop: 01/16/22 22:10 Last Admin: 12/21/21 20:27 Dose: 10 mg Documented by: Dextrose (Dextrose 50% 50 Ml Syringe) 25 - 50 ml IV UD PRN; Protocol PRN Reason: Hypoglycemia Protocol Stop: 01/16/22 22:10 Duloxetine HCl (Duloxetine Hcl 60 Mg Cap) 60 mg PO DAILY [facility] Stop: 01/17/22 08:59 Last Admin: 12/22/21 08:42 Dose: 60 mg Documented by: Enoxaparin Sodium (Enoxaparin Inj 40 Mg/0.4 Ml Syr) 40 mg SQ QAM [facility] Stop: 01/21/22 11:29 Last Admin: 12/22/21 12:06 Dose: 40 mg Documented by: Famotidine (Famotidine 20 Mg Tab) 20 mg PO DAILY [facility] Stop: 01/17/22 08:59 Last Admin: 12/22/21 08:42 Dose: 20 mg Documented by: Ferrous Sulfate (Ferrous Sulfate 325 Mg Tab) [facility] Stop: 01/17/22 08:59 Last Admin: 12/22/21 08:42 Dose: 325 mg Documented by: Finasteride (Finasteride 5 Mg Tab) 5 mg PO QAM [facility] Stop: 01/17/22 08:59 Last Admin: 12/22/21 08:42 Dose: 5 mg Documented by: Fluticasone Propionate (Fluticasone Propionate Na Spr 16 Gm Btl) 2 sprays HANSA DAILY [facility] Stop: 01/17/22 08:59 Last Admin: 12/22/21 08:52 Dose: 2 sprays Documented by: Folic Acid (Folic Acid 1 Mg Tab) 1 mg PO QAM [facility] Stop: 01/17/22 08:59 Last Admin: 12/22/21 08:42 Dose: 1 mg Documented by: Furosemide (Furosemide 40 Mg/4 Ml Vial) 40 mg IV BID17 EMPERATRIZ Stop: 01/17/22 08:59 Last Admin: 12/22/21 08:54 Dose: 40 mg Documented by: Gabapentin (Gabapentin 800 Mg Tab) 800 mg PO TID [facility] Stop: 01/16/22 22:10 Last Admin: 12/22/21 13:57 Dose: 800 mg Documented by: Glucagon (Glucagon For Inj 1 Mg Vial) 1 mg SQ UD PRN; Protocol PRN Reason: Hypoglycemia Protocol Stop: 01/16/22 22:10 Glucose (Glucose 10 Tabs/Tube) 4 - 8 tabs PO UD PRN; Protocol PRN Reason: Hypoglycemia Protocol Stop: 01/16/22 22:10 Glucose (Glucose 40% Gel 15 Gm Tube) 15 - 30 gm PO UD PRN; Protocol PRN Reason: Hypoglycemia Protocol Stop: 01/16/22 22:10 Guaifenesin (Guaifenesin 600 Mg Tabcr) 1,200 mg PO Q12 E[facility]Z Stop: 01/20/22 20:59 Last Admin: 12/22/21 08:43 Dose: 1,200 mg Documented by: Hydroxyzine HCl (Hydroxyzine Hcl 25 Mg Tab) 25 mg PO QID PRN PRN Reason: Anxiety Stop: 01/16/22 22:10 Insulin Aspart (Insulin Aspart Per Unit) 0 units SC ACHS EMPER[facility]RIZ Stop: 01/16/22 22:10 Last Admin: 12/22/21 12:07 Dose: 13 units Documented by: Insulin Glargine (Insulin Glargine Solostar 100 Units/Ml 3 Ml Pen) 25 units SC BID [facility] Stop: 01/16/22 22:10 Last Admin: 12/22/21 08:57 Dose: 25 units Documented by: Isosorbide Mononitrate (Isosorbide [place] Extended Rel 30 Mg Tabcr) 30 mg PO DAILY EMP[facility]Z Stop: 01/17/22 08:59 Last Admin: 12/22/21 08:41 Dose: 30 mg Documented by: Lorazepam (Lorazepam 0.5 Mg Tab) 0.5 mg PO Q8 PRN PRN Reason: Anxiety Stop: 01/16/22 22:10 Last Admin: 12/21/21 20:27 Dose: 0.5 mg Documented by: Magnesium Oxide (Magnesium Oxide 400 Mg Tab) 400 mg PO DAILY E[facility] Stop: 01/17/22 08:59 Last Admin: 12/22/21 08:41 Dose: 400 mg Documented by: Melatonin (Melatonin 3 Mg Tab) 9 mg PO HS PRN PRN Reason: Sleep Stop: 01/17/22 01:04 Last Admin: 12/21/21 20:27 Dose: 9 mg Documented by: Metoprolol Succinate (Metoprolol Succ 25mg Ext Rel Tab) 75 mg PO BID [facility] Stop: 01/16/22 22:10 Last Admin: 12/22/21 08:41 Dose: 75 mg Documented by: Miscellaneous (Carbohydrates For Hypoglycemia ) 15 - 30 gm PO UD PRN PRN Reason: Hypoglycemia Protocol Stop: 01/16/22 22:10 Miscellaneous (Urea 20% Cream - Order Awaiting Action) 1 ea N/A QS [facility] Stop: 01/17/22 00:00 Last Admin: 12/22/21 08:54 Dose: Not Given Documented by: Miscellaneous (Remove Nicoderm Patch) 1 ea N/A DAILY@0859 [facility] Stop: 01/18/22 08:58 Last Admin: 12/22/21 08:27 Dose: 1 ea Documented by: Nicotine (Nicotine 21 Mg/24 Hr Tdsy) 21 mg TD QAM [facility] Stop: 01/17/22 15:29 Last Admin: 12/22/21 08:44 Dose: 21 mg Documented by: Nitroglycerin (Nitroglycerin Sl 0.4 Mg/Tab Tab) 0.4 mg SL UD PRN PRN Reason: CHEST PAIN Stop: 01/16/22 22:10 Ondansetron HCl (Ondansetron Inj 2 Mg/Ml 2 Ml Vial) 4 mg IV Q6H PRN PRN Reason: Nausea Stop: 01/16/22 22:10 Last Admin: 12/18/21 04:16 Dose: 4 mg Documented by: Pantoprazole Sodium (Pantoprazole 40 Mg Tab) 40 mg PO DAILYBB [facility] Stop: 01/17/22 06:29 Last Admin: 12/22/21 05:57 Dose: 40 mg Documented by: Polyethylene Glycol (Polyethylene (Miralax) 17 Gm Pack) 17 gm PO DAILY PRN PRN Reason: Constipation Stop: 01/16/22 22:10 Potassium Chloride (Potassium Chloride Crtab 20 Meq Tabcr) 20 meq PO BID [facility] Stop: 01/16/22 22:10 Last Admin: 12/22/21 08:41 Dose: 20 meq Documented by: Senna/Docusate Sodium (Docusate Sodium/Senna 50/8.6mg Tab) 2 tab PO BID [facility] Stop: 01/20/22 20:59 Last Admin: 12/22/21 08:43 Dose: 2 tab Documented by: Sodium Chloride (Sodium Chloride 0.65% Na Soln 45 Ml ([place])) 2 sprays NA PRN PRN PRN Reason: Nasal Congestion Stop: 01/19/22 13:58 Last Admin: 12/20/21 14:43 Dose: 2 sprays Documented by: Spironolactone (Spironolactone 25 Mg Tab) 25 mg PO QAM [facility] Stop: 01/17/22 08:59 Last Admin: 12/22/21 08:42 Dose: 25 mg Documented by: Tamsulosin HCl (Tamsulosin Hcl 0.4 Mg Cap) 0.4 mg PO QAM [facility] Stop: 01/17/22 08:59 Last Admin: 12/22/21 08:41 Dose: 0.4 mg Documented by: Umeclidinium [place] (Umeclidinium [place] 62.5mcg/Blister 7 Puffs/Inhaler) [facility] Stop: 01/17/22 08:59 Last Admin: 12/22/21 08:57 Dose: 1 puffs Documented by: Warfarin Sodium (Warfarin Sod 5 Mg Tab) 5 mg PO We@1600 [facility] Stop: 01/16/22 22:10 Last Admin: 12/17/21 23:48 Dose: 5 mg Documented by: Warfarin Sodium (Warfarin Sod 2.5 Mg Tab) 2.5 mg PO SuMoTuThFrSa@1600 [facility] Stop: 01/17/22 15:59 Last Admin: 12/21/21 15:55 Dose: 2.5 mg Documented by: Warfarin Sodium (Warfarin Sod 2.5 Mg Tab) 2.5 mg PO ONE ONE Stop: 12/22/21 16:01
[2021-12-22] MEDS ORDERED: EUCERIN CR 120 GM JAR EXT STA (14:13)
[2021-12-22] MEDS: WARFARIN SOD 2.5 MG TAB PO SCH (15:49)
[2021-12-22] MEDS ORDERED: WARFARIN SOD 2.5 MG TAB PO ONE (16:00)
[2021-12-22] MEDS: ATORVASTATIN 40 MG TAB PO SCH (20:48)
[2021-12-22] MEDS: LORazepam 0.5 MG TAB PO PRN (20:52)
[2021-12-22] MEDS: CYCLOBENZAPRINE HCL 10 MG TAB PO PRN (20:52)
[2021-12-22] MEDS: MELATONIN 3 MG TAB PO PRN (20:52)
[2021-12-22] MEDS ORDERED: ACETAMINOPHEN 1000 MG/100 ML IV IV STA (20:58)
[2021-12-23] MEDS: PANTOprazole 40 MG TAB PO SCH (05:33)
[2021-12-23 08:31] LABS: INR 1.8 (0.9-1.1); Prothrombin Time 18.1 Seconds (9.0-12.0)
[2021-12-23] MEDS: FERROUS SULFATE 325 MG TAB PO SCH (08:36)
[2021-12-23] MEDS: DOCUSATE SODIUM/SENNA 50/8.6MG TAB PO SCH ×2 (08:37→21:30)
[2021-12-23] MEDS: DULoxetine HCL 60 MG CAP PO SCH (08:37)
[2021-12-23] MEDS: POTASSIUM CHLORIDE CRTAB 20 MEQ TABCR PO SCH ×2 (08:37→21:32)
[2021-12-23] MEDS: FINASTERIDE 5 MG TAB PO SCH (08:38)
[2021-12-23] MEDS: GABAPENTIN 800 MG TAB PO SCH ×3 (08:38→21:30)
[2021-12-23] MEDS: guaiFENesin 600 MG TABCR PO SCH ×2 (08:38→21:31)
[2021-12-23] MEDS: SPIRONOLACTONE 25 MG TAB PO SCH (08:39)
[2021-12-23] MEDS: FOLIC ACID 1 MG TAB PO SCH (08:39)
[2021-12-23] MEDS: TAMSULOSIN HCL 0.4 MG CAP PO SCH (08:39)
[2021-12-23] MEDS: ISOSORBIDE MONO EXTENDED REL 30 MG TABCR PO SCH (08:39)
[2021-12-23 08:40] LABS: BUN Creatinine Ratio 16.9 (10-20); Calcium 9.5 mg/dl (8.5-10.1); Creatinine Clr Calc Pharmacy 180.4 ml/min; Est GFR (African American) 114.7 ml/min; Magnesium 1.9 mg/dl (1.7-2.4); Potassium 3.9 mmol/L (3.5-5.1)
[2021-12-23] MEDS: FAMOTIDINE 20 MG TAB PO SCH (08:40)
[2021-12-23] MEDS: MAGNESIUM OXIDE 400 MG TAB PO SCH (08:40)
[2021-12-23] MEDS: ASPIRIN 81 MG ECTAB PO SCH (08:40)
[2021-12-23] MEDS: FUROSEMIDE 40 MG/4 ML VIAL IV SCH ×2 (08:41→17:31)
[2021-12-23] MEDS: FLUTICASONE PROPIONATE NA SPR 16 GM BTL NAE SCH (08:41)
[2021-12-23] MEDS: ENOXAPARIN INJ 40 MG/0.4 ML SYR SQ SCH (08:42)
[2021-12-23] MEDS: INSULIN GLARGINE SOLOSTAR 100 UNITS/ML 3 ML PEN SC SCH ×2 (08:47→21:32)
[2021-12-23] MEDS: NICOTINE 21 MG/24 HR TDSY TD SCH (08:48)
[2021-12-23] MEDS: INSULIN ASPART PER UNIT SC SCH ×4 (08:48→21:33)
[2021-12-23] MEDS: METOPROLOL SUCC 25MG EXT REL TAB PO SCH ×2 (10:19→21:31)
[2021-12-23] MEDS: UMECLIDINIUM BROMIDE 62.5MCG/BLISTER 7 PUFFS/INHALER INH SCH (10:20)
[2021-12-23] MEDS: buprenorphine HCL 8 MG SUBL SL SCH ×2 (10:20→21:32)
--- NOTE | 2021-12-23 13:16 | Hospitalist Progress Note ---
Date of Service December 23, 2021 Assessment & Plan (1) Acute on chronic heart failure with preserved ejection fraction: Plan: Pt is 49 y/o M with PMH DM II, HTN, H/O PE, on Coumadin, diastolic CHF, chronic back pain, COPD, urinary retention with chronic Lloyd that was recently removed after voiding trial, depression, anxiety, history of recurrent hospitalizations, h/o subdural hematoma, SAH, STEMI presented to ER with c/o BLE edema and 30 pound weight gain over past 2 weeks. Uses 4 L oxygen at bedtime. Home O2 sats reported 89 to 92%. Denies cough, fever, chest pain. In ER reported to be hypoxic, improved to 92% on 2 L via nasal cannula, remaining vitals WNL. Negative troponin. BNP: 62. Chest x-ray without acute findings. In ER given 40 mg Lasix IV Acute on chronic diastolic CHF Diuresing well with iv lasix 40 bid, will continue. Continue daily weight, strict I and Os, salt and fluid restriction- 1800cc. Also on aldactone Echo from 07/2021: EF: 60-65%, mild tricuspid regurgitation Monitor renal function, electrolytes while on diuresis Baseline weight of about 200 kg, weight on admission 214 kg-> 210 kg->208kg->207 kg->208 kg. Patient is still diuresing about 3.7 L/day with net negative of 2.2 L. Will not change diuretic regimen at this point BPH- his chronic Lloyd was removed on 12/03/2021. Currently voiding without issues. Continue tamsulosin, finasteride. Urine culture has been repeatedly negative. History PE- On chronic Coumadin; INR 1.8 today, continue home Coumadin and check INR in am for further management. COPD (chronic obstructive pulmonary disease): no exacerbation, no wheezes, continue home inhalers, nebs prn. History obesity hypoventilation syndrome- Uses 4 L oxygen at bedtime and as needed DM type 2 (diabetes mellitus, type 2): A1c: 7.6 on 12/16/2021; hold home meds; continue insulin- will adjust as indicated. Blood sugar has been reasonably controlled. CAD- Denies current chest pain; Continue aspirin, atorvastatin, metoprolol succinate Chronic pain: Continue gabapentin, Suboxone. Will have iv tylenol bid prn for breakthrough pain. Morbid obesity: BMI: 64; Lifestyle modifications recommended Constipation- on bowel regimen with lactulose, pericolace- will make miralax scheduled. He does not want a suppository or mag citrate at this point. Will follow. DVT Prophylaxis- On Coumadin-we will continue subcu Lovenox until INR therapeutic. Does not need full dose. Dispo- Medsurg pending optimization of volume status, on iv lasix Admission and Anticipated Discharge Date Admission Date: December 17, 2021 Subjective Patient was seen and examined at bedside. He was asking why his IV Tylenol was discontinued- reiterated that it had fallen off and has been renewed. Still no bowel movement despite uptitrating bowel regimen. Says lots of gas. He says he uses MiraLAX at home and it will be ordered. His swelling is coming down but still has lots of edema. No other issues. Physical Exam Physical Exam: General: Sitting comfortably in chair, not in distress, on NC HEENT: EOMI, TIAN, MMM Chest: Fair air entry bilaterally without wheezes or crackles-improved from before CVS: Regular rate and rhythm, normal heart sounds, no murmur Abdomen: Soft, non tender, not distended, normal bowel sounds Neuro: Awake, alert, oriented, conversing well, non focal Extremities: No cyanosis, clubbing, 2+ edema in all extremities Results & Data Results & Data ([facility]) Vital Signs (Past 12 Hours) Vital Signs Temp Pulse Pulse Resp BP BP Pulse Ox 12/23/21 11:41 36.5 C 84 20 149/76 H 95 12/23/21 07:00 36.6 C 71 20 130/70 93 12/23/21 06:14 83 12/23/21 03:15 36.7 C 73 18 94/53 L 95 Laboratory Results [facility] 12/23/21 08:06 Sodium 138 Potassium 3.9 Chloride 99 Carbon Dioxide 34 H BUN 15 Creatinine 0.89 Glucose 110 H Calcium 9.5 Medications Administered Current Inpatient Medications Acetaminophen (Acetaminophen 325 Mg Tab) 650 mg PO Q4H PRN PRN Reason: Pain or Fever Stop: 01/16/22 22:10 Acetaminophen (Acetaminophen 1000 Mg/100 Ml Iv) 1,000 mg IV BID PRN PRN Reason: Pain Stop: 12/26/21 11:17 Albuterol (Albut/Ipratrop 3mg/0.5mg Neb 3 Ml Vial) 3 ml NEB QIDR PRN; Protocol PRN Reason: Shortness Of Breath Or Wheezing Stop: 01/17/22 06:59 Albuterol (Albuterol Hfa 8 Gm Inhaler) 2 puffs INH Q4 PRN PRN Reason: Shortness Of Breath Or Wheezing Stop: 01/18/22 12:00 Aspirin (Aspirin 81 Mg Ectab) 81 mg PO QAM [facility] Stop: 01/17/22 08:59 Last Admin: 12/23/21 08:40 Dose: 81 mg Documented by: Atorvastatin Calcium (Atorvastatin 40 Mg Tab) 80 mg PO QPM [facility] Stop: 01/16/22 22:10 Last Admin: 12/22/21 20:48 Dose: 80 mg Documented by: Buprenorphine HCl (Buprenorphine Hcl 8 Mg Subl) 8 mg SL BID [facility] Stop: 01/17/22 08:59 Last Admin: 12/23/21 10:20 Dose: 8 mg Documented by: Buprenorphine HCl (Buprenorphine Hcl 2 Mg Subl) 4 mg SL DAILY@1200 [facility] Stop: 01/17/22 11:59 Last Admin: 12/22/21 12:24 Dose: 4 mg Documented by: Cyclobenzaprine HCl (Cyclobenzaprine Hcl 10 Mg Tab) 10 mg PO BID PRN PRN Reason: Muscle Spasm Stop: 01/16/22 22:10 Last Admin: 12/22/21 20:52 Dose: 10 mg Documented by: Dextrose (Dextrose 50% 50 Ml Syringe) 25 - 50 ml IV UD PRN; Protocol PRN Reason: Hypoglycemia Protocol Stop: 01/16/22 22:10 Duloxetine HCl (Duloxetine Hcl 60 Mg Cap) 60 mg PO DAILY [facility] Stop: 01/17/22 08:59 Last Admin: 12/23/21 08:37 Dose: 60 mg Documented by: Enoxaparin Sodium (Enoxaparin Inj 40 Mg/0.4 Ml Syr) 40 mg SQ QAM [facility] Stop: 01/21/22 11:29 Last Admin: 12/23/21 08:42 Dose: 40 mg Documented by: Famotidine (Famotidine 20 Mg Tab) 20 mg PO DAILY [facility] Stop: 01/17/22 08:59 Last Admin: 12/23/21 08:40 Dose: 20 mg Documented by: Ferrous Sulfate (Ferrous Sulfate 325 Mg Tab) 325 mg PO QAM [facility] Stop: 01/17/22 08:59 Last Admin: 12/23/21 08:36 Dose: 325 mg Documented by: Finasteride (Finasteride 5 Mg Tab) 5 mg PO QAM [facility] Stop: 01/17/22 08:59 Last Admin: 12/23/21 08:38 Dose: 5 mg Documented by: Fluticasone Propionate (Fluticasone Propionate Na Spr 16 Gm Btl) 2 sprays AHNSA DAILY [facility] Stop: 01/17/22 08:59 Last Admin: 12/23/21 08:41 Dose: 2 sprays Documented by: Folic Acid (Folic Acid 1 Mg Tab) 1 mg PO QAM [facility] Stop: 01/17/22 08:59 Last Admin: 12/23/21 08:39 Dose: 1 mg Documented by: Furosemide (Furosemide 40 Mg/4 Ml Vial) 40 mg IV BID17 [facility] Stop: 01/17/22 08:59 Last Admin: 12/23/21 08:41 Dose: 40 mg Documented by: Gabapentin (Gabapentin 800 Mg Tab) 800 mg PO TID [facility] Stop: 01/16/22 22:10 Last Admin: 12/23/21 08:38 Dose: 800 mg Documented by: Glucagon (Glucagon For Inj 1 Mg Vial) 1 mg SQ UD PRN; Protocol PRN Reason: Hypoglycemia Protocol Stop: 01/16/22 22:10 Glucose (Glucose 10 Tabs/Tube) 4 - 8 tabs PO UD PRN; Protocol PRN Reason: Hypoglycemia Protocol Stop: 01/16/22 22:10 Glucose (Glucose 40% Gel 15 Gm Tube) 15 - 30 gm PO UD PRN; Protocol PRN Reason: Hypoglycemia Protocol Stop: 01/16/22 22:10 Guaifenesin (Guaifenesin 600 Mg Tabcr) 1,200 mg PO Q12 [facility] Stop: 01/20/22 20:59 Last Admin: 12/23/21 08:38 Dose: 1,200 mg Documented by: Hydroxyzine HCl (Hydroxyzine Hcl 25 Mg Tab) 25 mg PO QID PRN PRN Reason: Anxiety Stop: 01/16/22 22:10 Insulin Aspart (Insulin Aspart Per Unit) 0 units SC ACHS [facility] Stop: 01/16/22 22:10 Last Admin: 12/23/21 08:48 Dose: 11 units Documented by: Insulin Glargine (Insulin Glargine Solostar 100 Units/Ml 3 Ml Pen) 25 units SC BID [facility] Stop: 01/16/22 22:10 Last Admin: 12/23/21 08:47 Dose: 25 units Documented by: Isosorbide Mononitrate (Isosorbide [place] Extended Rel 30 Mg Tabcr) 30 mg PO DAILY [facility] Stop: 01/17/22 08:59 Last Admin: 12/23/21 08:39 Dose: 30 mg Documented by: Lorazepam (Lorazepam 0.5 Mg Tab) 0.5 mg PO Q8 PRN PRN Reason: Anxiety Stop: 01/16/22 22:10 Last Admin: 12/22/21 20:52 Dose: 0.5 mg Documented by: Magnesium Oxide (Magnesium Oxide 400 Mg Tab) 400 mg PO DAILY [facility] Stop: 01/17/22 08:59 Last Admin: 12/23/21 08:40 Dose: 400 mg Documented by: Melatonin (Melatonin 3 Mg Tab) 9 mg PO HS PRN PRN Reason: Sleep Stop: 01/17/22 01:04 Last Admin: 12/22/21 20:52 Dose: 9 mg Documented by: Metoprolol Succinate (Metoprolol Succ 25mg Ext Rel Tab) 75 mg PO BID [facility] Stop: 01/16/22 22:10 Last Admin: 12/23/21 10:19 Dose: 75 mg Documented by: Miscellaneous (Carbohydrates For Hypoglycemia ) 15 - 30 gm PO UD PRN PRN Reason: Hypoglycemia Protocol Stop: 01/16/22 22:10 Miscellaneous (Urea 20% Cream - Order Awaiting Action) 1 ea N/A QS [facility] Stop: 01/17/22 00:00 Last Admin: 12/22/21 23:32 Dose: Not Given Documented by: Miscellaneous (Remove Nicoderm Patch) 1 ea N/A DAILY@0859 [facility] Stop: 01/18/22 08:58 Last Admin: 12/23/21 08:33 Dose: 1 ea Documented by: Nicotine (Nicotine 21 Mg/24 Hr Tdsy) 21 mg TD QAM [facility] Stop: 01/17/22 15:29 Last Admin: 12/23/21 08:48 Dose: 21 mg Documented by: Nitroglycerin (Nitroglycerin Sl 0.4 Mg/Tab Tab) 0.4 mg SL UD PRN PRN Reason: CHEST PAIN Stop: 01/16/22 22:10 Ondansetron HCl (Ondansetron Inj 2 Mg/Ml 2 Ml Vial) 4 mg IV Q6H PRN PRN Reason: Nausea Stop: 01/16/22 22:10 Last Admin: 12/18/21 04:16 Dose: 4 mg Documented by: Pantoprazole Sodium (Pantoprazole 40 Mg Tab) 40 mg PO DAILYBB [facility] Stop: 01/17/22 06:29 Last Admin: 12/23/21 05:33 Dose: 40 mg Documented by: Polyethylene Glycol (Polyethylene (Miralax) 17 Gm Pack) 17 gm PO DAILY PRN PRN Reason: Constipation Stop: 01/16/22 22:10 Potassium Chloride (Potassium Chloride Crtab 20 Meq Tabcr) 20 meq PO BID [facility] Stop: 01/16/22 22:10 Last Admin: 12/23/21 08:37 Dose: 20 meq Documented by: Senna/Docusate Sodium (Docusate Sodium/Senna 50/8.6mg Tab) 2 tab PO BID [facility] Stop: 01/20/22 20:59 Last Admin: 12/23/21 08:37 Dose: 2 tab Documented by: Sodium Chloride (Sodium Chloride 0.65% Na Soln 45 Ml ([place])) 2 sprays NA PRN PRN PRN Reason: Nasal Congestion Stop: 01/19/22 13:58 Last Admin: 12/20/21 14:43 Dose: 2 sprays Documented by: Spironolactone (Spiron[facility]act[facility] 25 Mg Tab) [facility]: 01/17/22 08:59 Last Admin: 12/23/21 08:39 Dose: 25 mg Documented by: Tamsulosin HCl (Tamsulosin Hcl 0.4 Mg Cap) [facility] Stop: 01/17/22 08:59 Last Admin: 12/23/21 08:39 Dose: 0.4 mg Documented by: Umeclidinium [place] (Umeclidinium [place] 62.5mcg/Blister 7 Puffs/Inhaler) 1 puffs [facility] Stop: 01/17/22 08:59 Last Admin: 12/23/21 10:20 Dose: 1 puffs Documented by: Warfarin Sodium (Warfarin Sod 5 Mg Tab) 5 mg PO We@1600 [facility] Stop: 01/16/22 22:10 Last Admin: 12/17/21 23:48 Dose: 5 mg Documented by: Warfarin Sodium (Warfarin Sod 2.5 Mg Tab) 2.5 mg PO Mariza@1600 [facility] Stop: 01/17/22 15:59 Last Admin: 12/22/21 15:49 Dose: 2.5 mg Documented by:
[2021-12-23] MEDS: ACETAMINOPHEN 1000 MG/100 ML IV IV PRN ×2 (13:17→21:29)
[2021-12-23] MEDS: POLYETHYLENE (MIRALAX) 17 GM PACK PO SCH (13:32)
[2021-12-23] MEDS: buprenorphine HCL 2 MG SUBL SL SCH (13:32)
[2021-12-23] MEDS ORDERED: EUCERIN CR 120 GM JAR EXT PRN (13:45)
[2021-12-23] MEDS: WARFARIN SOD 2.5 MG TAB PO SCH (16:35)
[2021-12-23] MEDS: ATORVASTATIN 40 MG TAB PO SCH (21:30)
[2021-12-23] MEDS: CYCLOBENZAPRINE HCL 10 MG TAB PO PRN (21:31)
[2021-12-23] MEDS: MELATONIN 3 MG TAB PO PRN (21:32)
[2021-12-24] MEDS: PANTOprazole 40 MG TAB PO SCH (05:45)
[2021-12-24 08:19] LABS: INR 1.8 (0.9-1.1); Prothrombin Time 18.3 Seconds (9.0-12.0)
[2021-12-24 08:32] LABS: BUN Creatinine Ratio 16.2 (10-20); Creatinine Clr Calc Pharmacy 152.2 ml/min; Est GFR (African American) 94.8 ml/min; Est GFR (Non-African American) 81.8 ml/min; Magnesium 1.9 mg/dl (1.7-2.4)
[2021-12-24] MEDS: INSULIN ASPART PER UNIT SC SCH ×4 (08:54→20:49)
[2021-12-24] MEDS: INSULIN GLARGINE SOLOSTAR 100 UNITS/ML 3 ML PEN SC SCH ×2 (08:55→20:48)
[2021-12-24] MEDS: FUROSEMIDE 40 MG/4 ML VIAL IV SCH ×2 (08:56→17:10)
[2021-12-24] MEDS: UMECLIDINIUM BROMIDE 62.5MCG/BLISTER 7 PUFFS/INHALER INH SCH (08:57)
[2021-12-24] MEDS: SPIRONOLACTONE 25 MG TAB PO SCH (09:00)
[2021-12-24] MEDS: ASPIRIN 81 MG ECTAB PO SCH (09:00)
[2021-12-24] MEDS: FINASTERIDE 5 MG TAB PO SCH (09:00)
[2021-12-24] MEDS: FOLIC ACID 1 MG TAB PO SCH (09:01)
[2021-12-24] MEDS: MAGNESIUM OXIDE 400 MG TAB PO SCH (09:01)
[2021-12-24] MEDS: FLUTICASONE PROPIONATE NA SPR 16 GM BTL NAE SCH (09:01)
[2021-12-24] MEDS: TAMSULOSIN HCL 0.4 MG CAP PO SCH (09:01)
[2021-12-24] MEDS: DULoxetine HCL 60 MG CAP PO SCH (09:02)
[2021-12-24] MEDS: FAMOTIDINE 20 MG TAB PO SCH (09:02)
[2021-12-24] MEDS: ENOXAPARIN INJ 40 MG/0.4 ML SYR SQ SCH (09:02)
[2021-12-24] MEDS: FERROUS SULFATE 325 MG TAB PO SCH (09:02)
[2021-12-24] MEDS: ISOSORBIDE MONO EXTENDED REL 30 MG TABCR PO SCH (09:02)
[2021-12-24] MEDS: POTASSIUM CHLORIDE CRTAB 20 MEQ TABCR PO SCH ×2 (09:03→20:48)
[2021-12-24] MEDS: DOCUSATE SODIUM/SENNA 50/8.6MG TAB PO SCH ×2 (09:03→20:46)
[2021-12-24] MEDS: guaiFENesin 600 MG TABCR PO SCH ×2 (09:03→20:46)
[2021-12-24] MEDS: METOPROLOL SUCC 25MG EXT REL TAB PO SCH ×2 (09:04→20:48)
[2021-12-24] MEDS: POLYETHYLENE (MIRALAX) 17 GM PACK PO SCH (09:06)
[2021-12-24] MEDS: NICOTINE 21 MG/24 HR TDSY TD SCH (09:06)
[2021-12-24] MEDS: GABAPENTIN 800 MG TAB PO SCH ×3 (09:07→20:47)
[2021-12-24] MEDS: buprenorphine HCL 8 MG SUBL SL SCH ×2 (09:21→20:47)
[2021-12-24] MEDS: ACETAMINOPHEN 1000 MG/100 ML IV IV PRN ×2 (10:02→20:48)
--- NOTE | 2021-12-24 10:56 | Hospitalist Progress Note ---
Date of Service December 24, 2021 Assessment & Plan (1) Acute on chronic heart failure with preserved ejection fraction: Plan: Pt is 49 y/o M with PMH DM II, HTN, H/O PE, on Coumadin, diastolic CHF, chronic back pain, COPD, urinary retention with chronic Lloyd that was recently removed after voiding trial, depression, anxiety, history of recurrent hospitalizations, h/o subdural hematoma, SAH, STEMI presented to ER with c/o BLE edema and 30 pound weight gain over past 2 weeks. Uses 4 L oxygen at bedtime. Home O2 sats reported 89 to 92%. Denies cough, fever, chest pain. In ER reported to be hypoxic, improved to 92% on 2 L via nasal cannula, remaining vitals WNL. Negative troponin. BNP: 62. Chest x-ray without acute findings. In ER given 40 mg Lasix IV Acute on chronic diastolic CHF Diuresing well with iv lasix 40 bid, will continue. Continue daily weight, strict I and Os, salt and fluid restriction- 1800cc. Also on aldactone Echo from 07/2021: EF: 60-65%, mild tricuspid regurgitation Monitor renal function, electrolytes while on diuresis Baseline weight of about 200 kg, weight on admission 214 kg-> 210 kg->208kg->207 kg->208 kg. Patient is still diuresing about 3.7 L/day with net negative of 2.2 L. Will not change diuretic regimen at this point BPH- his chronic Lloyd was removed on 12/03/2021. Currently voiding without issues. Continue tamsulosin, finasteride. Urine culture has been repeatedly negative. History PE- On chronic Coumadin; INR 1.8 today, continue home Coumadin and check INR in am for further management. COPD (chronic obstructive pulmonary disease): no exacerbation, no wheezes, continue home inhalers, nebs prn. History obesity hypoventilation syndrome- Uses 4 L oxygen at bedtime and as needed -Would benefit from sleep study as OP DM type 2 (diabetes mellitus, type 2): A1c: 7.6 on 12/16/2021; hold home meds; continue insulin- will adjust as indicated. Blood sugar has been reasonably controlled. CAD- Denies current chest pain; Continue aspirin, atorvastatin, metoprolol succinate Chronic pain: Continue gabapentin, Suboxone. Will have iv tylenol bid prn for breakthrough pain. Morbid obesity: BMI: 64; Lifestyle modifications recommended Constipation- on bowel regimen with lactulose, pericolace- will make miralax scheduled. He does not want a suppository or mag citrate at this point. Will follow. DVT Prophylaxis- On Coumadin-wINR 1.8, will discontinue SQ lovenox Dispo- Medsurg pending optimization of volume status, on iv lasix Admission and Anticipated Discharge Date Admission Date: December 17, 2021 Subjective Patient reports legs feels less swollen/tight but still with overall swelling "I can't see the knuckles on my hands" Reports fluid restriction compliance at home but then "when fluid comes, it comes fast" Physical Exam Physical Exam: Morbidly Obese, sitting in chair, pleasant and comfortable ENMT: Neck is thick Respiratory: No wheezing/rhonchi, diminished at bases Cardiovascular: Regular rate and rhythm, no murmurs/rubs/gallop Gastrointestinal (Abdomen): Obese, non tender Musculoskeletal: +edema bilateral legs, arms. Skin: Skin is nodular, thickened, hyperpigmented in bilateral lower extremity Neurologic: awake, alert, spontaneously moving extremities Results & Data Results & Data ([facility]) Vital Signs (Past 12 Hours) Vital Signs Temp Pulse Pulse Resp BP BP Pulse Ox 12/24/21 07:41 36.7 C 75 20 114/70 97 12/24/21 06:15 67 12/24/21 03:20 36.7 C 69 20 95/53 L 94 12/23/21 22:55 71 Laboratory Results [facility] 12/24/21 07:35 Sodium 139 Potassium 4.0 Chloride 101 Carbon Dioxide 37 H BUN 17 Creatinine 1.05 Glucose 107 H Calcium 9.0 Medications Administered Current Inpatient Medications Acetaminophen (Acetaminophen 325 Mg Tab) 650 mg PO Q4H PRN PRN Reason: Pain or Fever Stop: 01/16/22 22:10 Acetaminophen (Acetaminophen 1000 Mg/100 Ml Iv) 1,000 mg IV BID PRN PRN Reason: Pain Stop: 12/26/21 11:17 Last Admin: 12/24/21 10:02 Dose: 1,000 mg Documented by: Albuterol (Albut/Ipratrop 3mg/0.5mg Neb 3 Ml Vial) 3 ml NEB QIDR PRN; Protocol PRN Reason: Shortness Of Breath Or Wheezing Stop: 01/17/22 06:59 Albuterol (Albuterol Hfa 8 Gm Inhaler) 2 puffs INH Q4 PRN PRN Reason: Shortness Of Breath Or Wheezing Stop: 01/18/22 12:00 Aspirin (Aspirin 81 Mg Ectab) 81 mg PO QAM [facility] Stop: 01/17/22 08:59 Last Admin: 12/24/21 09:00 Dose: 81 mg Documented by: Atorvastatin Calcium (Atorvastatin 40 Mg Tab) 80 mg PO QPM [facility] Stop: 01/16/22 22:10 Last Admin: 12/23/21 21:30 Dose: 80 mg Documented by: Buprenorphine HCl (Buprenorphine Hcl 8 Mg Subl) 8 mg SL BID [facility] Stop: 01/17/22 08:59 Last Admin: 12/24/21 09:21 Dose: 8 mg Documented by: Buprenorphine HCl (Buprenorphine Hcl 2 Mg Subl) 4 mg SL DAILY@1200 [facility] Stop: 01/17/22 11:59 Last Admin: 12/23/21 13:32 Dose: 4 mg Documented by: Cyclobenzaprine HCl (Cyclobenzaprine Hcl 10 Mg Tab) 10 mg PO BID PRN PRN Reason: Muscle Spasm Stop: 01/16/22 22:10 Last Admin: 12/23/21 21:31 Dose: 10 mg Documented by: Dextrose (Dextrose 50% 50 Ml Syringe) 25 - 50 ml IV UD PRN; Protocol PRN Reason: Hypoglycemia Protocol Stop: 01/16/22 22:10 Duloxetine HCl (Duloxetine Hcl 60 Mg Cap) 60 mg PO DAILY [facility] Stop: 01/17/22 08:59 Last Admin: 12/24/21 09:02 Dose: 60 mg Documented by: Famotidine (Famotidine 20 Mg Tab) 20 mg PO DAILY [facility] Stop: 01/17/22 08:59 Last Admin: 12/24/21 09:02 Dose: 20 mg Documented by: Ferrous Sulfate (Ferrous Sulfate 325 Mg Tab) 325 mg PO QAM [facility] Stop: 01/17/22 08:59 Last Admin: 12/24/21 09:02 Dose: 325 mg Documented by: Finasteride (Finasteride 5 Mg Tab) 5 mg PO QAM [facility] Stop: 01/17/22 08:59 Last Admin: 12/24/21 09:00 Dose: 5 mg Documented by: Fluticasone Propionate (Fluticasone Propionate Na Spr 16 Gm Btl) 2 sprays HANSA DAILY [facility] Stop: 01/17/22 08:59 Last Admin: 12/24/21 09:01 Dose: 2 sprays Documented by: Folic Acid (Folic Acid 1 Mg Tab) 1 mg PO QAM [facility] Stop: 01/17/22 08:59 Last Admin: 12/24/21 09:01 Dose: 1 mg Documented by: Furosemide (Furosemide 40 Mg/4 Ml Vial) 40 mg IV BID17 [facility] Stop: 01/17/22 08:59 Last Admin: 12/24/21 08:56 Dose: 40 mg Documented by: Gabapentin (Gabapentin 800 Mg Tab) 800 mg PO TID [facility] Stop: 01/16/22 22:10 Last Admin: 12/24/21 09:07 Dose: 800 mg Documented by: Glucagon (Glucagon For Inj 1 Mg Vial) 1 mg SQ UD PRN; Protocol PRN Reason: Hypoglycemia Protocol Stop: 01/16/22 22:10 Glucose (Glucose 10 Tabs/Tube) 4 - 8 tabs PO UD PRN; Protocol PRN Reason: Hypoglycemia Protocol Stop: 01/16/22 22:10 Glucose (Glucose 40% Gel 15 Gm Tube) 15 - 30 gm PO UD PRN; Protocol PRN Reason: Hypoglycemia Protocol Stop: 01/16/22 22:10 Guaifenesin (Guaifenesin 600 Mg Tabcr) 1,200 mg PO Q12 [facility] Stop: 01/20/22 20:59 Last Admin: 12/24/21 09:03 Dose: 1,200 mg Documented by: Hydroxyzine HCl (Hydroxyzine Hcl 25 Mg Tab) 25 mg PO QID PRN PRN Reason: Anxiety Stop: 01/16/22 22:10 Insulin Aspart (Insulin Aspart Per Unit) 0 units SC ACHS [facility] Stop: 01/16/22 22:10 Last Admin: 12/24/21 08:54 Dose: 10 units Documented by: Insulin Glargine (Insulin Glargine Solostar 100 Units/Ml 3 Ml Pen) 25 units SC BID [facility] Stop: 01/16/22 22:10 Last Admin: 12/24/21 08:55 Dose: 25 units Documented by: Isosorbide Mononitrate (Isosorbide [place] Extended Rel 30 Mg Tabcr) 30 mg PO DAILY [facility] Stop: 01/17/22 08:59 Last Admin: 12/24/21 09:02 Dose: 30 mg Documented by: Lorazepam (Lorazepam 0.5 Mg Tab) 0.5 mg PO Q8 PRN PRN Reason: Anxiety Stop: 01/16/22 22:10 Last Admin: 12/22/21 20:52 Dose: 0.5 mg Documented by: Magnesium Oxide (Magnesium Oxide 400 Mg Tab) 400 mg PO DAILY [facility] Stop: 01/17/22 08:59 Last Admin: 12/24/21 09:01 Dose: 400 mg Documented by: Melatonin (Melatonin 3 Mg Tab) 9 mg PO HS PRN PRN Reason: Sleep Stop: 01/17/22 01:04 Last Admin: 12/23/21 21:32 Dose: 9 mg Documented by: Metoprolol Succinate (Metoprolol Succ 25mg Ext Rel Tab) 75 mg PO BID [facility] Stop: 01/16/22 22:10 Last Admin: 12/24/21 09:04 Dose: 75 mg Documented by: Miscellaneous (Carbohydrates For Hypoglycemia ) 15 - 30 gm PO UD PRN PRN Reason: Hypoglycemia Protocol Stop: 01/16/22 22:10 Miscellaneous (Remove Nicoderm Patch) 1 ea N/A DAILY@0859 [facility] Stop: 01/18/22 08:58 Last Admin: 12/24/21 08:58 Dose: 1 ea Documented by: Multi-Ingredient Cream (Eucerin Cr 120 Gm Jar) 1 appln EXT BID PRN PRN Reason: DRY SKIN ON SOLES/LEGS Stop: 01/22/22 13:28 Nicotine (Nicotine 21 Mg/24 Hr Tdsy) 21 mg TD QAM [facility] Stop: 01/17/22 15:29 Last Admin: 12/24/21 09:06 Dose: 21 mg Documented by: Nitroglycerin (Nitroglycerin Sl 0.4 Mg/Tab Tab) 0.4 mg SL UD PRN PRN Reason: CHEST PAIN Stop: 01/16/22 22:10 Ondansetron HCl (Ondansetron Inj 2 Mg/Ml 2 Ml Vial) 4 mg IV Q6H PRN PRN Reason: Nausea Stop: 01/16/22 22:10 Last Admin: 12/18/21 04:16 Dose: 4 mg Documented by: Pantoprazole Sodium (Pantoprazole 40 Mg Tab) 40 mg PO DAILYBB [facility] Stop: 01/17/22 06:29 Last Admin: 12/24/21 05:45 Dose: 40 mg Documented by: Polyethylene Glycol (Polyethylene (Miralax) 17 Gm Pack) 17 gm PO DAILY [facility] Stop: 01/22/22 13:29 Last Admin: 12/24/21 09:06 Dose: 17 gm Documented by: Potassium Chloride (Potassium Chloride Crtab 20 Meq Tabcr) 20 meq PO BID [facility] Stop: 01/16/22 22:10 Last Admin: 12/24/21 09:03 Dose: 20 meq Documented by: Senna/Docusate Sodium (Docusate Sodium/Senna 50/8.6mg Tab) 2 tab PO BID [facility] Stop: 01/20/22 20:59 Last Admin: 12/24/21 09:03 Dose: 2 tab Documented by: Sodium Chloride (Sodium Chloride 0.65% Na Soln 45 Ml ([place])) 2 sprays NA PRN PRN PRN Reason: Nasal Congestion Stop: 01/19/22 13:58 Last Admin: 12/20/21 14:43 Dose: 2 sprays Documented by: Spironolactone (Spironolactone 25 Mg Tab) 25 mg PO QAM [facility] Stop: 01/17/22 08:59 Last Admin: 12/24/21 09:00 Dose: 25 mg Documented by: Tamsulosin HCl (Tamsulosin Hcl 0.4 Mg Cap) 0.4 mg PO QAM [facility] Stop: 01/17/22 08:59 Last Admin: 12/24/21 09:01 Dose: 0.4 mg Documented by: Umeclidinium [place] (Umeclidinium [place] 62.5mcg/Blister 7 Puffs/Inhaler) 1 [facility] Stop: 01/17/22 08:59 Last Admin: 12/24/21 08:57 Dose: 1 puffs Documented by: Warfarin Sodium (Warfarin Sod 5 Mg Tab) 5 mg PO We@1600 [facility] Stop: 01/16/22 22:10 Last Admin: 12/17/21 23:48 Dose: 5 mg Documented by: Warfarin Sodium (Warfarin Sod 2.5 Mg Tab) 2.5 mg PO [id number]@1600 [facility] Stop: 01/17/22 15:59 Last Admin: 12/23/21 16:35 Dose: 2.5 mg Documented by:
[2021-12-24] MEDS: buprenorphine HCL 2 MG SUBL SL SCH (12:15)
[2021-12-24] MEDS: WARFARIN SOD 5 MG TAB PO SCH (17:11)
[2021-12-24] MEDS ORDERED: bisacodyL 10 MG SUPP PR PRN (18:49)
[2021-12-24] MEDS ORDERED: LACTULOSE SYRUP 20 GM/30 ML UDC PO STA (19:53)
[2021-12-24] MEDS: CYCLOBENZAPRINE HCL 10 MG TAB PO PRN (20:47)
[2021-12-24] MEDS: ATORVASTATIN 40 MG TAB PO SCH (20:47)
[2021-12-24] MEDS: LORazepam 0.5 MG TAB PO PRN (20:47)
[2021-12-25] MEDS: PANTOprazole 40 MG TAB PO SCH (05:59)
[2021-12-25 06:28] LABS: INR 1.8 (0.9-1.1); Prothrombin Time 18.2 Seconds (9.0-12.0)
[2021-12-25 06:45] LABS: Calcium 9.2 mg/dl (8.5-10.1); Creatinine Clr Calc Pharmacy 159.9 ml/min; Est GFR (African American) 100.6 ml/min; Est GFR (Non-African American) 86.8 ml/min; Potassium 3.9 mmol/L (3.5-5.1)
[2021-12-25] MEDS: INSULIN ASPART PER UNIT SC SCH ×4 (08:42→21:23)
[2021-12-25] MEDS: ACETAMINOPHEN 1000 MG/100 ML IV IV PRN ×2 (08:49→21:21)
[2021-12-25] MEDS: ASPIRIN 81 MG ECTAB PO SCH (08:51)
[2021-12-25] MEDS: METOPROLOL SUCC 25MG EXT REL TAB PO SCH ×2 (08:52→21:22)
[2021-12-25] MEDS: guaiFENesin 600 MG TABCR PO SCH ×2 (08:52→21:22)
[2021-12-25] MEDS: FINASTERIDE 5 MG TAB PO SCH (08:52)
[2021-12-25] MEDS: FERROUS SULFATE 325 MG TAB PO SCH (08:52)
[2021-12-25] MEDS: FAMOTIDINE 20 MG TAB PO SCH (08:53)
[2021-12-25] MEDS: GABAPENTIN 800 MG TAB PO SCH ×3 (08:53→21:23)
[2021-12-25] MEDS: MAGNESIUM OXIDE 400 MG TAB PO SCH (08:53)
[2021-12-25] MEDS: TAMSULOSIN HCL 0.4 MG CAP PO SCH (08:53)
[2021-12-25] MEDS: DOCUSATE SODIUM/SENNA 50/8.6MG TAB PO SCH ×2 (08:53→21:22)
[2021-12-25] MEDS: SPIRONOLACTONE 25 MG TAB PO SCH (08:53)
[2021-12-25] MEDS: FOLIC ACID 1 MG TAB PO SCH (08:53)
[2021-12-25] MEDS: DULoxetine HCL 60 MG CAP PO SCH (08:54)
[2021-12-25] MEDS: ISOSORBIDE MONO EXTENDED REL 30 MG TABCR PO SCH (08:54)
[2021-12-25] MEDS: FLUTICASONE PROPIONATE NA SPR 16 GM BTL NAE SCH (08:56)
[2021-12-25] MEDS: FUROSEMIDE 40 MG/4 ML VIAL IV SCH ×2 (08:58→17:14)
[2021-12-25] MEDS: INSULIN GLARGINE SOLOSTAR 100 UNITS/ML 3 ML PEN SC SCH ×2 (08:58→21:24)
[2021-12-25] MEDS: POLYETHYLENE (MIRALAX) 17 GM PACK PO SCH (08:58)
[2021-12-25] MEDS: NICOTINE 21 MG/24 HR TDSY TD SCH (08:58)
[2021-12-25] MEDS: UMECLIDINIUM BROMIDE 62.5MCG/BLISTER 7 PUFFS/INHALER INH SCH (08:59)
[2021-12-25] MEDS: buprenorphine HCL 8 MG SUBL SL SCH ×2 (09:08→21:22)
[2021-12-25] MEDS: POTASSIUM CHLORIDE CRTAB 20 MEQ TABCR PO SCH ×2 (09:08→21:23)
[2021-12-25] MEDS: ALBUTEROL HFA 8 GM INHALER INH PRN (10:11)
[2021-12-25] MEDS: buprenorphine HCL 2 MG SUBL SL SCH (12:58)
--- NOTE | 2021-12-25 13:53 | XRay Report ---
XR chest 1V portable HISTORY: cough COMPARISON: Chest 12/17/2021. FINDINGS: No pneumothorax. There are small bilateral pleural effusions. There is interstitial/vascula r thickening with mild cardiomegaly. This consistent with mild interstitial pulmonary edema. Hazy shabbir earance to the left lung base may represent atelectasis or layering pleural fluid. This is similar to the prior study. No new focal lung consolidations identified. IMPRESSION: Cardiomegaly with mild interstitial pulmonary edema and small bilateral pleural effusions. ACT 112: Negative or not required by law. Electronically signed by: Vidal Keller M.D. 12/25/2021 1:51 PM
--- NOTE | 2021-12-25 14:54 | Hospitalist Progress Note ---
Date of Service December 25, 2021 Assessment & Plan (1) Acute on chronic heart failure with preserved ejection fraction: Plan: Pt is 49 y/o M with PMH DM II, HTN, H/O PE, on Coumadin, diastolic CHF, chronic back pain, COPD, urinary retention with chronic Lloyd that was recently removed after voiding trial, depression, anxiety, history of recurrent hospitalizations, h/o subdural hematoma, SAH, STEMI presented to ER with c/o BLE edema and 30 pound weight gain over past 2 weeks. Uses 4 L oxygen at bedtime. Home O2 sats reported 89 to 92%. Denies cough, fever, chest pain. In ER reported to be hypoxic, improved to 92% on 2 L via nasal cannula, remaining vitals WNL. Negative troponin. BNP: 62. Chest x-ray without acute findings. In ER given 40 mg Lasix IV Acute on chronic diastolic CHF Continue daily weight, strict I and Os, salt and fluid restriction- 1800cc. Lasix 40mg IV BID and spironolactone. Echo from 07/2021: EF: 60-65%, mild tricuspid regurgitation Monitor renal function, electrolytes while on diuresis Still appears volume overloaded complaining of SOB today, CXR shows pleural effusion worsening interstitial opacities -will give metolazone 2.5mg once prior to next lasix dose BPH- his chronic Lloyd was removed on 12/03/2021. Currently voiding without issues. Continue tamsulosin, finasteride. History PE- On chronic Coumadin; INR 1.8 again today, continue home Coumadin COPD (chronic obstructive pulmonary disease): no exacerbation, no wheezes, continue home inhalers, nebs prn. History obesity hypoventilation syndrome- Uses 4 L oxygen at bedtime and as needed -Would benefit from sleep study as OP DM type 2 (diabetes mellitus, type 2): A1c: 7.6 on 12/16/2021; hold home meds; co ntinue insulin- will adjust as indicated. Blood sugar has been reasonably controlled. CAD- Denies current chest pain; Continue aspirin, atorvastatin, metoprolol succinate Chronic pain: Continue gabapentin, Suboxone. Will have iv tylenol bid prn for breakthrough pain. Morbid obesity: BMI: 64; Lifestyle modifications recommended Constipation- on bowel regimen with lactulose, pericolace- will make miralax scheduled. He does not want a suppository or mag citrate at this point. Will follow. DVT Prophylaxis- On Coumadin Dispo- Medsurg pending optimization of volume status, on iv lasix Admission and Anticipated Discharge Date Admission Date: December 17, 2021 Subjective Reports cough, congestion Also reports back pain, requesting Toradol Physical Exam Physical Exam: sitting in chair, no acute distress Respiratory: +faint rhonchi, no wheezing, no crackles Cardiovascular: regular rate and rhythm, no murmurs/rubs/gallops Gastrointestinal (Abdomen): soft, boese Musculoskeletal: +swollen hands and +1 edema bilateral legs Results & Data Results & Data ([facility]) Vital Signs (Past 12 Hours) Vital Signs Temp Pulse Resp BP Pulse Ox 12/25/21 12:00 36.9 C 79 20 106/62 96 12/25/21 08:00 36.5 C 75 20 130/69 91 12/25/21 03:43 36.6 C 70 18 142/65 H 95 Laboratory Results BMP 12/25/21 05:57 Sodium 139 Potassium 3.9 Chloride 101 Carbon Dioxide 35 H BUN 18 Creatinine 1.00 Glucose 123 H Calcium 9.2 Medications Administered Current Inpatient Medications Acetaminophen (Acetaminophen 325 Mg Tab) 650 mg PO Q4H PRN PRN Reason: Pain or Fever Stop: 01/16/22 22:10 Acetaminophen (Acetaminophen 1000 Mg/100 Ml Iv) 1,000 mg IV BID PRN PRN Reason: Pain Stop: 12/26/21 11:17 Last Admin: 12/25/21 08:49 Dose: 1,000 mg Documented by: Albuterol (Albut/Ipratrop 3mg/0.5mg Neb 3 Ml Vial) 3 ml NEB QIDR PRN; Protocol PRN Reason: Shortness Of Breath Or Wheezing Stop: 01/17/22 06:59 Albuterol (Albuterol Hfa 8 Gm Inhaler) 2 puffs INH Q4 PRN PRN Reason: Shortness Of Breath Or Wheezing Stop: 01/18/22 12:00 Last Admin: 12/25/21 10:11 Dose: 2 puffs Documented by: Aspirin (Aspirin 81 Mg Ectab) 81 mg PO QAM [facility] Stop: 01/17/22 08:59 Last Admin: 12/25/21 08:51 Dose: 81 mg Documented by: Atorvastatin Calcium (Atorvastatin 40 Mg Tab) 80 mg PO QPM [facility] Stop: 01/16/22 22:10 Last Admin: 12/24/21 20:47 Dose: 80 mg Documented by: Bisacodyl (Bisacodyl 10 Mg Supp) 10 mg MI DAILY PRN PRN Reason: Constipation Stop: 01/23/22 18:48 Buprenorphine HCl (Buprenorphine Hcl 8 Mg Subl) 8 mg SL BID [facility] Stop: 01/17/22 08:59 Last Admin: 12/25/21 09:08 Dose: 8 mg Documented by: Buprenorphine HCl (Buprenorphine Hcl 2 Mg Subl) 4 mg SL DAILY@1200 [facility] Stop: 01/17/22 11:59 Last Admin: 12/25/21 12:58 Dose: 4 mg Documented by: Cyclobenzaprine HCl (Cyclobenzaprine Hcl 10 Mg Tab) 10 mg PO BID PRN PRN Reason: Muscle Spasm Stop: 01/16/22 22:10 Last Admin: 12/24/21 20:47 Dose: 10 mg Documented by: Dextrose (Dextrose 50% 50 Ml Syringe) 25 - 50 ml IV UD PRN; Protocol PRN Reason: Hypoglycemia Protocol Stop: 01/16/22 22:10 Duloxetine HCl (Duloxetine Hcl 60 Mg Cap) 60 mg PO DAILY [facility] Stop: 01/17/22 08:59 Last Admin: 12/25/21 08:54 Dose: 60 mg Documented by: Famotidine (Famotidine 20 Mg Tab) 20 mg PO DAILY [facility] Stop: 01/17/22 08:59 Last Admin: 12/25/21 08:53 Dose: 20 mg Documented by: Ferrous Sulfate (Ferrous Sulfate 325 Mg Tab) 325 mg PO QAM [facility] Stop: 01/17/22 08:59 Last Admin: 12/25/21 08:52 Dose: 325 mg Documented by: Finasteride (Finasteride 5 Mg Tab) 5 mg PO QAM [facility] Stop: 01/17/22 08:59 Last Admin: 12/25/21 08:52 Dose: 5 mg Documented by: Fluticasone Propionate (Fluticasone Propionate Na Spr 16 Gm Btl) 2 sprays HANSA DAILY [facility] Stop: 01/17/22 08:59 Last Admin: 12/25/21 08:56 Dose: 2 sprays Documented by: Folic Acid (Folic Acid 1 Mg Tab) 1 mg PO QAM [facility] Stop: 01/17/22 08:59 Last Admin: 12/25/21 08:53 Dose: 1 mg Documented by: Furosemide (Furosemide 40 Mg/4 Ml Vial) 40 mg IV BID17 [facility] Stop: 01/17/22 08:59 Last Admin: 12/25/21 08:58 Dose: 40 mg Documented by: Gabapentin (Gabapentin 800 Mg Tab) 800 mg PO TID [facility] Stop: 01/16/22 22:10 Last Admin: 12/25/21 14:52 Dose: 800 mg Documented by: Glucagon (Glucagon For Inj 1 Mg Vial) 1 mg SQ UD PRN; Protocol PRN Reason: Hypoglycemia Protocol Stop: 01/16/22 22:10 Glucose (Glucose 10 Tabs/Tube) 4 - 8 tabs PO UD PRN; Protocol PRN Reason: Hypoglycemia Protocol Stop: 01/16/22 22:10 Glucose (Glucose 40% Gel 15 Gm Tube) 15 - 30 gm PO UD PRN; Protocol PRN Reason: Hypoglycemia Protocol Stop: 01/16/22 22:10 Guaifenesin (Guaifenesin 600 Mg Tabcr) 1,200 mg PO Q12 [facility] Stop: 01/20/22 20:59 Last Admin: 12/25/21 08:52 Dose: 1,200 mg Documented by: Hydroxyzine HCl (Hydroxyzine Hcl 25 Mg Tab) 25 mg PO QID PRN PRN Reason: Anxiety Stop: 01/16/22 22:10 Insulin Aspart (Insulin Aspart Per Unit) 0 units SC ACHS [facility] Stop: 01/16/22 22:10 Last Admin: 12/25/21 12:56 Dose: 1 units Documented by: Insulin Glargine (Insulin Glargine Solostar 100 Units/Ml 3 Ml Pen) 25 units SC BID [facility] Stop: 01/16/22 22:10 Last Admin: 12/25/21 08:58 Dose: 25 units Documented by: Isosorbide Mononitrate (Isosorbide [place] Extended Rel 30 Mg Tabcr) 30 mg PO DAILY [facility] Stop: 01/17/22 08:59 Last Admin: 12/25/21 08:54 Dose: 30 mg Documented by: Lorazepam (Lorazepam 0.5 Mg Tab) 0.5 mg PO Q8 PRN PRN Reason: Anxiety Stop: 01/16/22 22:10 Last Admin: 12/24/21 20:47 Dose: 0.5 mg Documented by: Magnesium Oxide (Magnesium Oxide 400 Mg Tab) 400 mg PO DAILY [facility] Stop: 01/17/22 08:59 Last Admin: 12/25/21 08:53 Dose: 400 mg Documented by: Melatonin (Melatonin 3 Mg Tab) 9 mg PO HS PRN PRN Reason: Sleep Stop: 01/17/22 01:04 Last Admin: 12/23/21 21:32 Dose: 9 mg Documented by: Metoprolol Succinate (Metoprolol Succ 25mg Ext Rel Tab) 75 mg PO BID [facility] Stop: 01/16/22 22:10 Last Admin: 12/25/21 08:52 Dose: 75 mg Documented by: Miscellaneous (Carbohydrates For Hypoglycemia ) 15 - 30 gm PO UD PRN PRN Reason: Hypoglycemia Protocol Stop: 01/16/22 22:10 Miscellaneous (Remove Nicoderm Patch) 1 ea N/A DAILY@0859 [facility] Stop: 01/18/22 08:58 Last Admin: 12/25/21 08:57 Dose: 1 ea Documented by: Multi-Ingredient Cream (Eucerin Cr 120 Gm Jar) 1 appln EXT BID PRN PRN Reason: DRY SKIN ON SOLES/LEGS Stop: 01/22/22 13:28 Nicotine (Nicotine 21 Mg/24 Hr Tdsy) 21 mg TD QAM [facility] Stop: 01/17/22 15:29 Last Admin: 12/25/21 08:58 Dose: 21 mg Documented by: Nitroglycerin (Nitroglycerin Sl 0.4 Mg/Tab Tab) 0.4 mg SL UD PRN PRN Reason: CHEST PAIN Stop: 01/16/22 22:10 Ondansetron HCl (Ondansetron Inj 2 Mg/Ml 2 Ml Vial) 4 mg IV Q6H PRN PRN Reason: Nausea Stop: 01/16/22 22:10 Last Admin: 12/18/21 04:16 Dose: 4 mg Documented by: Pantoprazole Sodium (Pantoprazole 40 Mg Tab) 40 mg PO DAILYBB [facility] Stop: 01/17/22 06:29 Last Admin: 12/25/21 05:59 Dose: 40 mg Documented by: Polyethylene Glycol (Polyethylene (Miralax) 17 Gm Pack) 17 gm PO DAILY [facility] Stop: 01/22/22 13:29 Last Admin: 12/25/21 08:58 Dose: Not Given Documented by: Potassium Chloride (Potassium Chloride Crtab 20 Meq Tabcr) 20 meq PO BID [facility] Stop: 01/16/22 22:10 Last Admin: 12/25/21 09:08 Dose: 20 meq Documented by: Senna/Docusate Sodium (Docusate Sodium/Senna 50/8.6mg Tab) 2 tab PO BID [facility] Stop: 01/20/22 20:59 Last Admin: 12/25/21 08:53 Dose: 2 tab Documented by: Sodium Chloride (Sodium Chloride 0.65% Na Soln 45 Ml ([place])) 2 sprays NA PRN PRN PRN Reason: Nasal Congestion Stop: 01/19/22 13:58 Last Admin: 12/20/21 14:43 Dose: 2 sprays Documented by: Spironolactone (Spiron[facility]actone 25 Mg Tab) [facility] [place] [facility] Stop: 01/17/22 08:59 Last Admin: 12/25/21 08:53 Dose: 25 mg Documented by: Tamsulosin HCl (Tamsulosin Hcl 0.4 Mg Cap) 0.4 mg PO [facility] Stop: 01/17/22 08:59 Last Admin: 12/25/21 08:53 Dose: 0.4 mg Documented by: Umeclidinium Dumas (Umeclidinium Dumas 62.5mcg/Blister 7 Puffs/Inhaler) 1 puffs INH [facility] Stop: 01/17/22 08:59 Last Admin: 12/25/21 08:59 Dose: 1 puffs Documented by: Warfarin Sodium (Warfarin Sod 5 Mg Tab) 5 mg PO We@1600 [facility] Stop: 01/16/22 22:10 Last Admin: 12/24/21 17:11 Dose: 5 mg Documented by: Warfarin Sodium (Warfarin Sod 2.5 Mg Tab) 2.5 mg PO SuMoTuThFrSa@1600 [facility] Stop: 01/17/22 15:59 Last Admin: 12/23/21 16:35 Dose: 2.5 mg Documented by:
[2021-12-25 15:46] LABS: Influenza A virus by PCR Negative (Neg); Influenza B virus by PCR Negative (Neg); RSV by PCR Negative (Neg); SARS CoV2 RNA(COVID-19) InHosp NEGATIVE (Negative)
[2021-12-25] MEDS ORDERED: metOLazone 2.5 MG TABLET PO ONE (16:30)
[2021-12-25] MEDS: WARFARIN SOD 2.5 MG TAB PO SCH (17:13)
[2021-12-25] MEDS: ATORVASTATIN 40 MG TAB PO SCH (21:22)
[2021-12-25] MEDS: LORazepam 0.5 MG TAB PO PRN (21:22)
[2021-12-25] MEDS: CYCLOBENZAPRINE HCL 10 MG TAB PO PRN (21:23)
[2021-12-26] MEDS: PANTOprazole 40 MG TAB PO SCH (05:28)
[2021-12-26 06:15] LABS: BUN Creatinine Ratio 16.8 (10-20); Calcium 9.4 mg/dl (8.5-10.1); Creatinine Clr Calc Pharmacy 158.3 ml/min; Est GFR (African American) 99.4 ml/min; Est GFR (Non-African American) 85.7 ml/min; Potassium 3.8 mmol/L (3.5-5.1)
[2021-12-26] MEDS: INSULIN ASPART PER UNIT SC SCH ×4 (07:55→21:00)
[2021-12-26] MEDS: GABAPENTIN 800 MG TAB PO SCH ×3 (08:23→20:50)
[2021-12-26] MEDS: POTASSIUM CHLORIDE CRTAB 20 MEQ TABCR PO SCH ×2 (08:24→20:49)
[2021-12-26] MEDS: MAGNESIUM OXIDE 400 MG TAB PO SCH (08:24)
[2021-12-26] MEDS: FERROUS SULFATE 325 MG TAB PO SCH (08:24)
[2021-12-26] MEDS: FINASTERIDE 5 MG TAB PO SCH (08:25)
[2021-12-26] MEDS: SPIRONOLACTONE 25 MG TAB PO SCH (08:25)
[2021-12-26] MEDS: DULoxetine HCL 60 MG CAP PO SCH (08:25)
[2021-12-26] MEDS: FOLIC ACID 1 MG TAB PO SCH (08:26)
[2021-12-26] MEDS: ASPIRIN 81 MG ECTAB PO SCH (08:26)
[2021-12-26] MEDS: TAMSULOSIN HCL 0.4 MG CAP PO SCH (08:26)
[2021-12-26] MEDS: METOPROLOL SUCC 25MG EXT REL TAB PO SCH ×2 (08:26→20:50)
[2021-12-26] MEDS: FAMOTIDINE 20 MG TAB PO SCH (08:27)
[2021-12-26] MEDS: ISOSORBIDE MONO EXTENDED REL 30 MG TABCR PO SCH (08:27)
[2021-12-26] MEDS: DOCUSATE SODIUM/SENNA 50/8.6MG TAB PO SCH ×2 (08:27→20:45)
[2021-12-26] MEDS: guaiFENesin 600 MG TABCR PO SCH ×2 (08:27→20:50)
[2021-12-26] MEDS: FLUTICASONE PROPIONATE NA SPR 16 GM BTL NAE SCH (08:28)
[2021-12-26] MEDS: POLYETHYLENE (MIRALAX) 17 GM PACK PO SCH (08:29)
[2021-12-26] MEDS: NICOTINE 21 MG/24 HR TDSY TD SCH (08:30)
[2021-12-26] MEDS: FUROSEMIDE 40 MG/4 ML VIAL IV SCH ×3 (08:30→18:20)
[2021-12-26] MEDS: INSULIN GLARGINE SOLOSTAR 100 UNITS/ML 3 ML PEN SC SCH ×2 (08:33→20:53)
[2021-12-26] MEDS: ACETAMINOPHEN 1000 MG/100 ML IV IV PRN (08:34)
[2021-12-26] MEDS: buprenorphine HCL 8 MG SUBL SL SCH ×2 (08:43→21:04)
[2021-12-26] MEDS: UMECLIDINIUM BROMIDE 62.5MCG/BLISTER 7 PUFFS/INHALER INH SCH (09:29)
[2021-12-26] MEDS: buprenorphine HCL 2 MG SUBL SL SCH (12:20)
[2021-12-26] MEDS ORDERED: COUGH DROP (SUGAR FREE) LOZ 24 LOZ/1 BOX BUCCAL PRN (12:53)
[2021-12-26] MEDS: BENZONATATE 100 MG CAPSULE PO PRN ×2 (13:33→20:46)
--- NOTE | 2021-12-26 16:17 | Hospitalist Progress Note ---
Date of Service December 26, 2021 Assessment & Plan (1) Acute on chronic heart failure with preserved ejection fraction: Plan: Pt is 49 y/o M with PMH DM II, HTN, H/O PE, on Coumadin, diastolic CHF, chronic back pain, COPD, urinary retention with chronic Lloyd that was recently removed after voiding trial, depression, anxiety, history of recurrent hospitalizations, h/o subdural hematoma, SAH, STEMI presented to ER with c/o BLE edema and 30 pound weight gain over past 2 weeks. Uses 4 L oxygen at bedtime. Home O2 sats reported 89 to 92%. Denies cough, fever, chest pain. In ER reported to be hypoxic, improved to 92% on 2 L via nasal cannula, remaining vitals WNL. Negative troponin. BNP: 62. Chest x-ray without acute findings. In ER given 40 mg Lasix IV Acute on chronic diastolic CHF Continue daily weight, strict I and Os, salt and fluid restriction- 1800cc. Echo from 07/2021: EF: 60-65%, mild tricuspid regurgitation Monitor renal function, electrolytes while on diuresis Still appears volume overloaded complaining of SOB 12/25, CXR shows pleural effusion worsening interstitial opacities - s/p metolazone 2.5mg once prior to evening lasix dose 12/25 -increase lasix to 40mg IV TID BPH- his chronic Lloyd was removed on 12/03/2021. Currently voiding without issues. Continue tamsulosin, finasteride. History PE- On chronic Coumadin; INR 1.8 again today, continue home Coumadin COPD (chronic obstructive pulmonary disease): no exacerbation, no wheezes, continue home inhalers, nebs prn. History obesity hypoventilation syndrome- Uses 4 L oxygen at bedtime and as needed -Would benefit from sleep study as OP DM type 2 (diabetes mellitus, type 2): A1c: 7.6 on 12/16/2021; hold home meds; continue insulin- will adjust as indicated. Blood sugar has been reasonably controlled. CAD- Denies current chest pain; Continue aspirin, atorvastatin, metoprolol succinate Chronic pain: Continue gabapentin, Suboxone. Will have iv tylenol bid prn for breakthrough pain. Morbid obesity: BMI: 64; Lifestyle modifications recommended Constipation- on bowel regimen with lactulose, pericolace- will make miralax scheduled. He does not want a suppository or mag citrate at this point. Will follow. DVT Prophylaxis- On Coumadin Dispo- Medsurg pending optimization of volume status, on iv lasix Admission and Anticipated Discharge Date Admission Date: December 17, 2021 Subjective Feels congested, diuresing well Still with cough Physical Exam Physical Exam: Morbidly obese, no acute distress Respiratory: breathing comfortably, dminished at bases, no wheezing/rhonc hi/rales Cardiovascular: regular rate and rhythm, no murmurs/rubs/gallops Gastrointestinal (Abdomen): Obese, soft Musculoskeletal: beginning to see some wrinkling of wrists/knuckles, legs still edematous. Very difficult to assess fluid status given his body habitus Results & Data Results & Data ([facility]) Vital Signs (Past 12 Hours) Vital Signs Temp Pulse Pulse Resp BP Pulse Ox 12/26/21 15:56 70 12/26/21 15:00 36.9 C 80 19 152/89 H 93 12/26/21 11:04 36.6 C 66 20 131/63 100 12/26/21 07:43 61 Laboratory Results [facility] 12/26/21 05:25 Sodium 138 Potassium 3.8 Chloride 100 Carbon Dioxide 34 H BUN 17 Creatinine 1.01 Glucose 117 H Calcium 9.4
[2021-12-26] MEDS: WARFARIN SOD 2.5 MG TAB PO SCH (16:37)
[2021-12-26] MEDS ORDERED: ACETAMINOPHEN 1000 MG/100 ML IV IV PRN (19:07)
[2021-12-26] MEDS: MELATONIN 3 MG TAB PO PRN (20:46)
[2021-12-26] MEDS: LORazepam 0.5 MG TAB PO PRN (20:46)
[2021-12-26] MEDS: CYCLOBENZAPRINE HCL 10 MG TAB PO PRN (20:46)
[2021-12-26] MEDS: ATORVASTATIN 40 MG TAB PO SCH (20:48)
[2021-12-26] MEDS: ACETAMINOPHEN 1,000 MG/100 ML VIAL IV PRN (21:05)
[2021-12-27] MEDS: PANTOprazole 40 MG TAB PO SCH (06:34)
[2021-12-27 07:53] LABS: INR 1.7 (0.9-1.1); Prothrombin Time 17.2 Seconds (9.0-12.0)
[2021-12-27] MEDS: buprenorphine HCL 8 MG SUBL SL SCH ×2 (07:58→22:51)
[2021-12-27] MEDS: DOCUSATE SODIUM/SENNA 50/8.6MG TAB PO SCH ×2 (07:59→22:19)
[2021-12-27] MEDS: METOPROLOL SUCC 25MG EXT REL TAB PO SCH ×2 (07:59→22:18)
[2021-12-27] MEDS: guaiFENesin 600 MG TABCR PO SCH ×2 (07:59→22:15)
[2021-12-27] MEDS: FERROUS SULFATE 325 MG TAB PO SCH (08:00)
[2021-12-27] MEDS: ISOSORBIDE MONO EXTENDED REL 30 MG TABCR PO SCH (08:00)
[2021-12-27] MEDS: TAMSULOSIN HCL 0.4 MG CAP PO SCH (08:00)
[2021-12-27] MEDS: SPIRONOLACTONE 25 MG TAB PO SCH (08:01)
[2021-12-27] MEDS: FINASTERIDE 5 MG TAB PO SCH (08:01)
[2021-12-27] MEDS: FOLIC ACID 1 MG TAB PO SCH (08:01)
[2021-12-27] MEDS: ASPIRIN 81 MG ECTAB PO SCH (08:01)
[2021-12-27] MEDS: MAGNESIUM OXIDE 400 MG TAB PO SCH (08:01)
[2021-12-27] MEDS: DULoxetine HCL 60 MG CAP PO SCH (08:02)
[2021-12-27] MEDS: POLYETHYLENE (MIRALAX) 17 GM PACK PO SCH (08:02)
[2021-12-27] MEDS: POTASSIUM CHLORIDE CRTAB 20 MEQ TABCR PO SCH (08:02)
[2021-12-27] MEDS: GABAPENTIN 800 MG TAB PO SCH ×3 (08:02→22:16)
[2021-12-27] MEDS: NICOTINE 21 MG/24 HR TDSY TD SCH (08:02)
[2021-12-27] MEDS: INSULIN GLARGINE SOLOSTAR 100 UNITS/ML 3 ML PEN SC SCH ×2 (08:03→23:00)
[2021-12-27] MEDS: INSULIN ASPART PER UNIT SC SCH ×4 (08:04→23:01)
[2021-12-27] MEDS: UMECLIDINIUM BROMIDE 62.5MCG/BLISTER 7 PUFFS/INHALER INH SCH (08:04)
[2021-12-27] MEDS: FLUTICASONE PROPIONATE NA SPR 16 GM BTL NAE SCH (08:05)
[2021-12-27] MEDS: FAMOTIDINE 20 MG TAB PO SCH (08:05)
[2021-12-27] MEDS: FUROSEMIDE 40 MG/4 ML VIAL IV SCH ×3 (08:15→18:33)
[2021-12-27 08:17] LABS: BUN Creatinine Ratio 18.8 (10-20); Calcium 9.6 mg/dl (8.5-10.1); Creatinine Clr Calc Pharmacy 141.1 ml/min; Est GFR (African American) 87.7 ml/min; Est GFR (Non-African American) 75.7 ml/min; Magnesium 1.8 mg/dl (1.7-2.4); Potassium 3.4 mmol/L (3.5-5.1)
[2021-12-27] MEDS ORDERED: POTASSIUM CHLORIDE CRTAB 20 MEQ TABCR PO STA (08:51)
--- NOTE | 2021-12-27 10:12 | Hospitalist Progress Note ---
Date of Service December 27, 2021 Assessment & Plan (1) Acute on chronic heart failure with preserved ejection fraction: Plan: Pt is 49 y/o M with PMH DM II, HTN, H/O PE, on Coumadin, diastolic CHF, chronic back pain, COPD, urinary retention with chronic Lloyd that was recently removed after voiding trial, depression, anxiety, history of recurrent hospitalizations, h/o subdural hematoma, SAH, STEMI presented to ER with c/o BLE edema and 30 pound weight gain over past 2 weeks. Uses 4 L oxygen at bedtime. Home O2 sats reported 89 to 92%. Denies cough, fever, chest pain. In ER reported to be hypoxic, improved to 92% on 2 L via nasal cannula, remaining vitals WNL. Negative troponin. BNP: 62. Chest x-ray without acute findings. In ER given 40 mg Lasix IV Acute on chronic diastolic CHF Continue daily weight, strict I and Os, salt and fluid restriction- 1800cc. Echo from 07/2021: EF: 60-65%, mild tricuspid regurgitation Monitor renal function, electrolytes while on diuresis Still appears volume overloaded complaining of SOB 12/25, CXR shows pleural effusion worsening interstitial opacities - s/p metolazone 2.5mg once prior to evening lasix dose 12/25 -lasix to 40mg IV TID, will continue BPH- his chronic Lloyd was removed on 12/03/2021. Currently voiding without issues. Continue tamsulosin, finasteride. History PE- On chronic Coumadin; INR 1.7 today, will give extra 2.5mg (total 5mg today) COPD (chronic obstructive pulmonary disease): no exacerbation, no wheezes, continue home inhalers, nebs prn. History obesity hypoventilation syndrome- Uses 4 L oxygen at bedtime and as needed -Would benefit from sleep study as OP DM type 2 (diabetes mellitus, type 2): A1c: 7.6 on 12/16/2021; hold home meds; continue insulin- will adjust as indicated. Blood sugar has been reasonably controlled. CAD- Denies current chest pain; Continue aspirin, atorvastatin, metoprolol suc cinate Chronic pain: Continue gabapentin, Suboxone. Will have iv tylenol bid prn for breakthrough pain. Morbid obesity: BMI: 64; Lifestyle modifications recommended Constipation- on bowel regimen with lactulose, pericolace- will make miralax scheduled. He does not want a suppository or mag citrate at this point. Will follow. DVT Prophylaxis- On Coumadin Dispo- Medsurg pending optimization of volume status, on iv lasix Admission and Anticipated Discharge Date Admission Date: December 17, 2021 Subjective Diuresing well Still feels swollen does not know what his "dry weight" Physical Exam Physical Exam: Morbidly obese, sounds congested, no acute distress Respiratory: diminished at bases, no wheezing/rhonchi/rales Cardiovascular: regular rate and rhythm, no murmurs/rubs/gallops Gastrointestinal (Abdomen): Obese, non distended, non tender Musculoskeletal: Difficult to assess fluid status due to body habitus Hand knuckles appear more prominent Results & Data Results & Data ([facility]) Vital Signs (Past 12 Hours) Vital Signs Temp Pulse Pulse Resp BP BP Pulse Ox 12/27/21 08:19 36.6 C 76 20 120/69 93 12/27/21 07:25 61 12/27/21 02:41 36.9 C 68 18 122/73 94 12/26/21 23:11 36.9 C 75 18 142/75 H 93 12/26/21 23:00 70 Laboratory Results BMP 12/27/21 07:17 Sodium 138 Potassium 3.4 L Chloride 97 L Carbon Dioxide 37 H BUN 21 Creatinine 1.12 Glucose 124 H Calcium 9.6 Medications Administered Current Inpatient Medications Acetaminophen (Acetaminophen 325 Mg Tab) 650 mg PO Q4H PRN PRN Reason: Pain or Fever Stop: 01/16/22 22:10 Albuterol (Albut/Ipratrop 3mg/0.5mg Neb 3 Ml Vial) 3 ml NEB QIDR PRN; Protocol PRN Reason: Shortness Of Breath Or Wheezing Stop: 01/17/22 06:59 Albuterol (Albuterol Hfa 8 Gm Inhaler) 2 puffs INH Q4 PRN PRN Reason: Shortness Of Breath Or Wheezing Stop: 01/18/22 12:00 Last Admin: 12/25/21 10:11 Dose: 2 puffs Documented by: Aspirin (Aspirin 81 Mg Ectab) 81 mg PO QAM [facility] Stop: 01/17/22 08:59 Last Admin: 12/27/21 08:01 Dose: 81 mg Documented by: Atorvastatin Calcium (Atorvastatin 40 Mg Tab) 80 mg PO QPM [facility] Stop: 01/16/22 22:10 Last Admin: 12/26/21 20:48 Dose: 80 mg Documented by: Benzonatate (Benzonatate 100 Mg Capsule) 100 mg PO TID PRN PRN Reason: Cough Stop: 01/25/22 12:52 Last Admin: 12/26/21 20:46 Dose: 100 mg Documented by: Bisacodyl (Bisacodyl 10 Mg Supp) 10 mg [place] DAILY PRN PRN Reason: Constipation Stop: 01/23/22 18:48 Buprenorphine HCl (Buprenorphine Hcl 8 Mg Subl) 8 mg SL BID [facility] Stop: 01/17/22 08:59 Last Admin: 12/27/21 07:58 Dose: 8 mg Documented by: Buprenorphine HCl (Buprenorphine Hcl 2 Mg Subl) 4 mg SL DAILY@1200 [facility] Stop: 01/17/22 11:59 Last Admin: 12/26/21 12:20 Dose: 4 mg Documented by: Cyclobenzaprine HCl (Cyclobenzaprine Hcl 10 Mg Tab) 10 mg PO BID PRN PRN Reason: Muscle Spasm Stop: 01/16/22 22:10 Last Admin: 12/26/21 20:46 Dose: 10 mg Documented by: Dextrose (Dextrose 50% 50 Ml Syringe) 25 - 50 ml IV UD PRN; Protocol PRN Reason: Hypoglycemia Protocol Stop: 01/16/22 22:10 Duloxetine HCl (Duloxetine Hcl 60 Mg Cap) 60 mg PO DAILY [facility] Stop: 01/17/22 08:59 Last Admin: 12/27/21 08:02 Dose: 60 mg Documented by: Famotidine (Famotidine 20 Mg Tab) 20 mg PO DAILY [facility] Stop: 01/17/22 08:59 Last Admin: 12/27/21 08:05 Dose: 20 mg Documented by: Ferrous Sulfate (Ferrous Sulfate 325 Mg Tab) 325 mg PO QAM [facility] Stop: 01/17/22 08:59 Last Admin: 12/27/21 08:00 Dose: 325 mg Documented by: Finasteride (Finasteride 5 Mg Tab) 5 mg PO QAM [facility] Stop: 01/17/22 08:59 Last Admin: 12/27/21 08:01 Dose: 5 mg Documented by: Fluticasone Propionate (Fluticasone Propionate Na Spr 16 Gm Btl) 2 sprays HANSA DAILY [facility] Stop: 01/17/22 08:59 Last Admin: 12/27/21 08:05 Dose: 2 sprays Documented by: Folic Acid (Folic Acid 1 Mg Tab) 1 mg PO QAM [facility] Stop: 01/17/22 08:59 Last Admin: 12/27/21 08:01 Dose: 1 mg Documented by: Furosemide (Furosemide 40 Mg/4 Ml Vial) 40 mg IV TID [facility] Stop: 01/25/22 08:59 Last Admin: 12/27/21 08:15 Dose: 40 mg Documented by: Gabapentin (Gabapentin 800 Mg Tab) 800 mg PO TID [facility] Stop: 01/16/22 22:10 Last Admin: 12/27/21 08:02 Dose: 800 mg Documented by: Glucagon (Glucagon For Inj 1 Mg Vial) 1 mg SQ UD PRN; Protocol PRN Reason: Hypoglycemia Protocol Stop: 01/16/22 22:10 Glucose (Glucose 10 Tabs/Tube) 4 - 8 tabs PO UD PRN; Protocol PRN Reason: Hypoglycemia Protocol Stop: 01/16/22 22:10 Glucose (Glucose 40% Gel 15 Gm Tube) 15 - 30 gm PO UD PRN; Protocol PRN Reason: Hypoglycemia Protocol Stop: 01/16/22 22:10 Guaifenesin (Guaifenesin 600 Mg Tabcr) 1,200 mg PO Q12 [facility] Stop: 01/20/22 20:59 Last Admin: 12/27/21 07:59 Dose: 1,200 mg Documented by: Hydroxyzine HCl (Hydroxyzine Hcl 25 Mg Tab) 25 mg PO QID PRN PRN Reason: Anxiety Stop: 01/16/22 22:10 Acetaminophen (Ofirmev) 1,000 mg in 100 mls @ 400 mls/hr IV BID PRN PRN Reason: PAIN OR FEVER Stop: 12/29/21 19:27 Last Infusion: 12/26/21 22:53 Dose: Infused Documented by: Magnesium Sulfate/Dextrose (Magnesium Sulfate / D5w) 1 gm in 100 mls @ 50 mls/hr IV Q2H [facility] Stop: 12/27/21 13:14 Insulin Aspart (Insulin Aspart Per Unit) 0 units SC ACHS [facility] Stop: 01/16/22 22:10 Last Admin: 12/27/21 08:04 Dose: 11 units Documented by: Insulin Glargine (Insulin Glargine Solostar 100 Units/Ml 3 Ml Pen) 25 units SC BID [facility] Stop: 01/16/22 22:10 Last Admin: 12/27/21 08:03 Dose: 25 units Documented by: Isosorbide Mononitrate (Isosorbide [place] Extended Rel 30 Mg Tabcr) 30 mg PO DAILY [facility] Stop: 01/17/22 08:59 Last Admin: 12/27/21 08:00 Dose: 30 mg Documented by: Lorazepam (Lorazepam 0.5 Mg Tab) 0.5 mg PO Q8 PRN PRN Reason: Anxiety Stop: 01/16/22 22:10 Last Admin: 12/26/21 20:46 Dose: 0.5 mg Documented by: Magnesium Oxide (Magnesium Oxide 400 Mg Tab) 400 mg PO DAILY [facility] Stop: 01/17/22 08:59 Last Admin: 12/27/21 08:01 Dose: 400 mg Documented by: Melatonin (Melatonin 3 Mg Tab) 9 mg PO HS PRN PRN Reason: Sleep Stop: 01/17/22 01:04 Last Admin: 12/26/21 20:46 Dose: 9 mg Documented by: Menthol (Cough Drop (Sugar Free) [place] 24 [place]/1 Box) 1 lashon BUCCAL TID PRN PRN Reason: Sore Throat Stop: 01/25/22 12:52 Metoprolol Succinate (Metoprolol Succ 25mg Ext Rel Tab) 75 mg PO BID [facility] Stop: 01/16/22 22:10 Last Admin: 12/27/21 07:59 Dose: 75 mg Documented by: Miscellaneous (Carbohydrates For Hypoglycemia ) 15 - 30 gm PO UD PRN PRN Reason: Hypoglycemia Protocol Stop: 01/16/22 22:10 Miscellaneous (Remove Nicoderm Patch) 1 ea N/A DAILY@0859 [facility] Stop: 01/18/22 08:58 Last Admin: 12/27/21 08:05 Dose: 1 ea Documented by: Multi-Ingredient Cream (Eucerin Cr 120 Gm Jar) 1 appln EXT BID PRN PRN Reason: DRY SKIN ON SOLES/LEGS Stop: 01/22/22 13:28 Nicotine (Nicotine 21 Mg/24 Hr Tdsy) 21 mg TD QAM [facility] Stop: 01/17/22 15:29 Last Admin: 12/27/21 08:02 Dose: 21 mg Documented by: Nitroglycerin (Nitroglycerin Sl 0.4 Mg/Tab Tab) 0.4 mg SL UD PRN PRN Reason: CHEST PAIN Stop: 01/16/22 22:10 Ondansetron HCl (Ondansetron Inj 2 Mg/Ml 2 Ml Vial) 4 mg IV Q6H PRN PRN Reason: Nausea Stop: 01/16/22 22:10 Last Admin: 12/18/21 04:16 Dose: 4 mg Documented by: Pantoprazole Sodium (Pantoprazole 40 Mg Tab) 40 mg PO DAILYBB [facility] Stop: 01/17/22 06:29 Last Admin: 12/27/21 06:34 Dose: 40 mg Documented by: Polyethylene Glycol (Polyethylene (Miralax) 17 Gm Pack) 17 gm PO DAILY [facility] Stop: 01/22/22 13:29 Last Admin: 12/27/21 08:02 Dose: 17 gm Documented by: Potassium Chloride (Potassium Chloride Crtab 20 Meq Tabcr) 20 meq PO BID [facility] Stop: 01/16/22 22:10 Last Admin: 12/27/21 08:02 Dose: 20 meq Documented by: Potassium Chloride (Potassium Chloride Crtab 20 Meq Tabcr) 40 meq PO QPM [facility] Stop: 12/27/21 21:01 Senna/Docusate Sodium (Docusate Sodium/Senna 50/8.6mg Tab) 2 tab PO BID [facility] Stop: 01/20/22 20:59 Last Admin: 12/27/21 07:59 Dose: 2 tab Documented by: Sodium Chloride (Sodium Chloride 0.65% Na Soln 45 Ml ([place])) 2 sprays NA PRN PRN PRN Reason: Nasal Congestion Stop: 01/19/22 13:58 Last Admin: 12/20/21 14:43 Dose: 2 sprays Documented by: Spironolactone (Spironolactone 25 Mg Tab) 25 mg PO QAM [facility] Stop: 01/17/22 08:59 Last Admin: 12/27/21 08:01 Dose: 25 mg Documented by: Tamsulosin HCl (Tamsulosin Hcl 0.4 Mg Cap) 0.4 mg PO QAM [facility] Stop: 01/17/22 08:59 Last Admin: 12/27/21 08:00 Dose: 0.4 mg Documented by: Umeclidinium [place] (Umeclidinium [place] 62.5mcg/Blister 7 Puffs/Inhaler) [facility] Stop: 01/17/22 08:59 Last Admin: 12/27/21 08:04 Dose: 1 puffs Documented by: Warfarin Sodium (Warfarin Sod 2.5 Mg Tab) 2.5 mg PO SuMoTuThFrSa@1600 [facility] Stop: 01/17/22 15:59 Last Admin: 12/26/21 16:37 Dose: 2.5 mg Documented by: Warfarin Sodium (Warfarin Sod 5 Mg Tab) 5 mg PO We@1600 [facility] Stop: 01/30/22 15:59 Warfarin Sodium (Warfarin Sod 2.5 Mg Tab) 2.5 mg PO TODAY@1600 [facility] Stop: 12/27/21 16:01
[2021-12-27] MEDS: MAGNESIUM SULFATE / D5W 1 GM/100 ML BAG IV SCH ×2 (10:38→12:24)
[2021-12-27] MEDS: buprenorphine HCL 2 MG SUBL SL SCH (12:02)
[2021-12-27] MEDS ORDERED: WARFARIN SOD 2.5 MG TAB PO ONE (16:00)
[2021-12-27] MEDS: WARFARIN SOD 2.5 MG TAB PO SCH (17:17)
[2021-12-27] MEDS ORDERED: POTASSIUM CHLORIDE CRTAB 20 MEQ TABCR PO ONE (21:00)
[2021-12-27] MEDS: ATORVASTATIN 40 MG TAB PO SCH (22:16)
[2021-12-27] MEDS: ACETAMINOPHEN 1,000 MG/100 ML VIAL IV PRN (22:45)
[2021-12-27] MEDS: LORazepam 0.5 MG TAB PO PRN (22:52)
[2021-12-27] MEDS: MELATONIN 3 MG TAB PO PRN (22:53)
[2021-12-27] MEDS: CYCLOBENZAPRINE HCL 10 MG TAB PO PRN (22:53)
[2021-12-28] MEDS: FUROSEMIDE 40 MG/4 ML VIAL IV SCH ×3 (06:47→17:19)
[2021-12-28] MEDS: PANTOprazole 40 MG TAB PO SCH (06:47)
[2021-12-28] MEDS: INSULIN ASPART PER UNIT SC SCH ×4 (08:09→21:37)
[2021-12-28] MEDS: INSULIN GLARGINE SOLOSTAR 100 UNITS/ML 3 ML PEN SC SCH ×2 (08:10→21:38)
[2021-12-28 08:37] LABS: INR 1.4 (0.9-1.1)
[2021-12-28 08:48] LABS: BUN Creatinine Ratio 18.7 (10-20); Calcium 9.9 mg/dl (8.5-10.1); Creatinine Clr Calc Pharmacy 147.4 ml/min; Est GFR (African American) 92.7 ml/min; Potassium 3.8 mmol/L (3.5-5.1)
[2021-12-28] MEDS ORDERED: POTASSIUM CHLORIDE CRTAB 20 MEQ TABCR PO STA (08:59)
[2021-12-28] MEDS: buprenorphine HCL 8 MG SUBL SL SCH ×2 (09:22→21:46)
[2021-12-28] MEDS: guaiFENesin 600 MG TABCR PO SCH ×2 (09:25→21:36)
[2021-12-28] MEDS: POTASSIUM CHLORIDE CRTAB 20 MEQ TABCR PO SCH ×2 (09:26→21:40)
[2021-12-28] MEDS: FOLIC ACID 1 MG TAB PO SCH (09:27)
[2021-12-28] MEDS: GABAPENTIN 800 MG TAB PO SCH ×3 (09:27→21:37)
[2021-12-28] MEDS: DOCUSATE SODIUM/SENNA 50/8.6MG TAB PO SCH ×2 (09:28→21:35)
[2021-12-28] MEDS: METOPROLOL SUCC 25MG EXT REL TAB PO SCH ×2 (09:28→21:40)
[2021-12-28] MEDS: ISOSORBIDE MONO EXTENDED REL 30 MG TABCR PO SCH (09:29)
[2021-12-28] MEDS: MAGNESIUM OXIDE 400 MG TAB PO SCH (09:29)
[2021-12-28] MEDS: SPIRONOLACTONE 25 MG TAB PO SCH (09:29)
[2021-12-28] MEDS: ASPIRIN 81 MG ECTAB PO SCH (09:30)
[2021-12-28] MEDS: DULoxetine HCL 60 MG CAP PO SCH (09:30)
[2021-12-28] MEDS: FINASTERIDE 5 MG TAB PO SCH (09:30)
[2021-12-28] MEDS: FAMOTIDINE 20 MG TAB PO SCH (09:31)
[2021-12-28] MEDS: TAMSULOSIN HCL 0.4 MG CAP PO SCH (09:31)
[2021-12-28] MEDS: FERROUS SULFATE 325 MG TAB PO SCH (09:31)
[2021-12-28] MEDS: NICOTINE 21 MG/24 HR TDSY TD SCH (09:32)
[2021-12-28] MEDS: FLUTICASONE PROPIONATE NA SPR 16 GM BTL NAE SCH (09:33)
[2021-12-28] MEDS: UMECLIDINIUM BROMIDE 62.5MCG/BLISTER 7 PUFFS/INHALER INH SCH (09:33)
[2021-12-28] MEDS: ACETAMINOPHEN 1,000 MG/100 ML VIAL IV PRN ×2 (09:34→21:29)
[2021-12-28] MEDS: POLYETHYLENE (MIRALAX) 17 GM PACK PO SCH (09:34)
--- NOTE | 2021-12-28 11:53 | Hospitalist Progress Note ---
Date of Service December 28, 2021 Assessment & Plan (1) Acute on chronic heart failure with preserved ejection fraction: Plan: Pt is 49 y/o M with PMH DM II, HTN, H/O PE, on Coumadin, diastolic CHF, chronic back pain, COPD, urinary retention with chronic Lloyd that was recently removed after voiding trial, depression, anxiety, history of recurrent hospitalizations, h/o subdural hematoma, SAH, STEMI presented to ER with c/o BLE edema and 30 pound weight gain over past 2 weeks. Uses 4 L oxygen at bedtime. Home O2 sats reported 89 to 92%. Denies cough, fever, chest pain. In ER reported to be hypoxic, improved to 92% on 2 L via nasal cannula, remaining vitals WNL. Negative troponin. BNP: 62. Chest x-ray without acute findings. In ER given 40 mg Lasix IV Acute on chronic diastolic CHF Continue daily weight, strict I and Os, salt and fluid restriction- 1800cc. Echo from 07/2021: EF: 60-65%, mild tricuspid regurgitation Monitor renal function, electrolytes while on diuresis difficult to assess fluid status based on physical exam alone due to body habitus, but edema does appear to be improving Down to 202Kg Patient unsure of his "dry weight" BPH - his chronic Lloyd was removed on 12/03/2021. Currently voiding without issues. Continue tamsulosin, finasteride. History PE- On chronic Coumadin; INR 1.4 today despite extra dose of 2.5mg yesterday -will increase coumadin to 5mg daily. Give another extra 2.5mg today as well (total 7.5mg ) COPD (chronic obstructive pulmonary disease): no exacerbation, no wheezes, continue home inhalers, nebs prn. History obesity hypoventilation syndrome- Uses 4 L oxygen at bedtime and as needed -Would benefit from sleep study as OP DM type 2 (diabetes mellitus, type 2): A1c: 7.6 on 12/16/2021; hold home meds; continue insulin- will adjust as indicated. Blood sugar has been reasonably controlled. CAD- Denies current chest pain; Continue aspirin, atorvastatin, metoprolol succinate Chronic pain: Continue gabapentin, Suboxone. Will have iv tylenol bid prn for breakthrough pain. Morbid obesity: BMI: 64 recommend establishing care with bariatric surgery Constipation- on bowel regimen with lactulose, pericolace- will make miralax scheduled. He does not want a suppository or mag citrate at this point. Will follow. DVT Prophylaxis- On Coumadin Dispo- Medsurg pending optimization of volume status, on iv lasix Admission and Anticipated Discharge Date Admission Date: December 17, 2021 Subjective Still feels congested, swollen Diruesed down to 202Kg Physical Exam Physical Exam: Obese, no acute distress, non toxic Respiratory: diminished diffusely, no wheezing/rhonchi/crackles Cardiovascular: regular rate and rhythm, no murmurs/rubs/gallops Gastrointestinal (Abdomen): non tender Musculoskeletal: knuckles more prominent, hands more wrinkled Difficult to assess fluid status due to body habitus Results & Data Results & Data ([facility]) Vital Signs (Past 12 Hours) Vital Signs Temp Pulse Pulse Resp BP BP Pulse Ox 12/28/21 11:28 36.5 C 70 21 129/72 97 12/28/21 07:29 36.3 C L 65 20 158/80 H 98 12/28/21 07:15 61 12/28/21 04:09 36.9 C 71 20 136/64 95 12/28/21 02:39 78 Laboratory Results BMP 12/28/21 07:47 Sodium 138 Potassium 3.8 Chloride 96 L Carbon Dioxide 38 H BUN 20 Creatinine 1.07 Glucose 128 H Calcium 9.9 Medications Administered Current Inpatient Medications Acetaminophen (Acetaminophen 325 Mg Tab) 650 mg PO Q4H PRN PRN Reason: Pain or Fever Stop: 01/16/22 22:10 Albuterol (Albut/Ipratrop 3mg/0.5mg Neb 3 Ml Vial) 3 ml NEB QIDR PRN; Protocol PRN Reason: Shortness Of Breath Or Wheezing Stop: 01/17/22 06:59 Albuterol (Albuterol Hfa 8 Gm Inhaler) 2 puffs INH Q4 PRN PRN Reason: Shortness Of Breath Or Wheezing Stop: 01/18/22 12:00 Last Admin: 12/25/21 10:11 Dose: 2 puffs Documented by: Aspirin (Aspirin 81 Mg Ectab) 81 mg PO QAM [facility] Stop: 01/17/22 08:59 Last Admin: 12/28/21 09:30 Dose: 81 mg Documented by: Atorvastatin Calcium (Atorvastatin 40 Mg Tab) 80 mg PO QPM [facility] Stop: 01/16/22 22:10 Last Admin: 12/27/21 22:16 Dose: 80 mg Documented by: Benzonatate (Benzonatate 100 Mg Capsule) 100 mg PO TID PRN PRN Reason: Cough Stop: 01/25/22 12:52 Last Admin: 12/26/21 20:46 Dose: 100 mg Documented by: Bisacodyl (Bisacodyl 10 Mg Supp) 10 mg [place] DAILY PRN PRN Reason: Constipation Stop: 01/23/22 18:48 Buprenorphine HCl (Buprenorphine Hcl 8 Mg Subl) 8 mg SL BID [facility] Stop: 01/17/22 08:59 Last Admin: 12/28/21 09:22 Dose: 8 mg Documented by: Buprenorphine HCl (Buprenorphine Hcl 2 Mg Subl) 4 mg SL DAILY@1200 [facility] Stop: 01/17/22 11:59 Last Admin: 12/27/21 12:02 Dose: 4 mg Documented by: Cyclobenzaprine HCl (Cyclobenzaprine Hcl 10 Mg Tab) 10 mg PO BID PRN PRN Reason: Muscle Spasm Stop: 01/16/22 22:10 Last Admin: 12/27/21 22:53 Dose: 10 mg Documented by: Dextrose (Dextrose 50% 50 Ml Syringe) 25 - 50 ml IV UD PRN; Protocol PRN Reason: Hypoglycemia Protocol Stop: 01/16/22 22:10 Duloxetine HCl (Duloxetine Hcl 60 Mg Cap) 60 mg PO DAILY [facility] Stop: 01/17/22 08:59 Last Admin: 12/28/21 09:30 Dose: 60 mg Documented by: Famotidine (Famotidine 20 Mg Tab) 20 mg PO DAILY [facility] Stop: 01/17/22 08:59 Last Admin: 12/28/21 09:31 Dose: 20 mg Documented by: Ferrous Sulfate (Ferrous Sulfate 325 Mg Tab) 325 mg PO QAM [facility] Stop: 01/17/22 08:59 Last Admin: 12/28/21 09:31 Dose: 325 mg Documented by: Finasteride (Finasteride 5 Mg Tab) 5 mg PO QAM [facility] Stop: 01/17/22 08:59 Last Admin: 12/28/21 09:30 Dose: 5 mg Documented by: Fluticasone Propionate (Fluticasone Propionate Na Spr 16 Gm Btl) 2 sprays HANSA DAILY [facility] Stop: 01/17/22 08:59 Last Admin: 12/28/21 09:33 Dose: 2 sprays Documented by: Folic Acid (Folic Acid 1 Mg Tab) 1 mg PO QAM [facility] Stop: 01/17/22 08:59 Last Admin: 12/28/21 09:27 Dose: 1 mg Documented by: Furosemide (Furosemide 40 Mg/4 Ml Vial) 40 mg IV TID@0600,1200,1800 [facility] Stop: 01/26/22 17:59 Last Admin: 12/28/21 06:47 Dose: 40 mg Documented by: Gabapentin (Gabapentin 800 Mg Tab) 800 mg PO TID [facility] Stop: 01/16/22 22:10 Last Admin: 12/28/21 09:27 Dose: 800 mg Documented by: Glucagon (Glucagon For Inj 1 Mg Vial) 1 mg SQ UD PRN; Protocol PRN Reason: Hypoglycemia Protocol Stop: 01/16/22 22:10 Glucose (Glucose 10 Tabs/Tube) 4 - 8 tabs PO UD PRN; Protocol PRN Reason: Hypoglycemia Protocol Stop: 01/16/22 22:10 Glucose (Glucose 40% Gel 15 Gm Tube) 15 - 30 gm PO UD PRN; Protocol PRN Reason: Hypoglycemia Protocol Stop: 01/16/22 22:10 Guaifenesin (Guaifenesin 600 Mg Tabcr) 1,200 mg PO Q12 [facility] Stop: 01/20/22 20:59 Last Admin: 12/28/21 09:25 Dose: 1,200 mg Documented by: Hydroxyzine HCl (Hydroxyzine Hcl 25 Mg Tab) 25 mg PO QID PRN PRN Reason: Anxiety Stop: 01/16/22 22:10 Acetaminophen (Ofirmev) 1,000 mg in 100 mls @ 400 mls/hr IV BID PRN PRN Reason: PAIN OR FEVER Stop: 12/29/21 19:27 Last Infusion: 12/28/21 10:19 Dose: Infused Documented by: Insulin Aspart (Insulin Aspart Per Unit) 0 units SC ACHS [facility] Stop: 01/16/22 22:10 Last Admin: 12/28/21 08:09 Dose: 12 units Documented by: Insulin Glargine (Insulin Glargine Solostar 100 Units/Ml 3 Ml Pen) 25 units SC BID [facility] Stop: 01/16/22 22:10 Last Admin: 12/28/21 08:10 Dose: 25 units Documented by: Isosorbide Mononitrate (Isosorbide [place] Extended Rel 30 Mg Tabcr) 30 mg PO DAILY [facility] Stop: 01/17/22 08:59 Last Admin: 12/28/21 09:29 Dose: 30 mg Documented by: Lorazepam (Lorazepam 0.5 Mg Tab) 0.5 mg PO Q8 PRN PRN Reason: Anxiety Stop: 01/16/22 22:10 Last Admin: 12/27/21 22:52 Dose: 0.5 mg Documented by: Magnesium Oxide (Magnesium Oxide 400 Mg Tab) 400 mg PO DAILY [facility] Stop: 01/17/22 08:59 Last Admin: 12/28/21 09:29 Dose: 400 mg Documented by: Melatonin (Melatonin 3 Mg Tab) 9 mg PO HS PRN PRN Reason: Sleep Stop: 01/17/22 01:04 Last Admin: 12/27/21 22:53 Dose: 9 mg Documented by: Menthol (Cough Drop (Sugar Free) [place] 24 [place]/1 Box) 1 lashon BUCCAL TID PRN PRN Reason: Sore Throat Stop: 01/25/22 12:52 Metoprolol Succinate (Metoprolol Succ 25mg Ext Rel Tab) 75 mg PO BID [facility] Stop: 01/16/22 22:10 Last Admin: 12/28/21 09:28 Dose: 75 mg Documented by: Miscellaneous (Carbohydrates For Hypoglycemia ) 15 - 30 gm PO UD PRN PRN Reason: Hypoglycemia Protocol Stop: 01/16/22 22:10 Miscellaneous (Remove Nicoderm Patch) 1 ea N/A DAILY@0859 [facility] Stop: 01/18/22 08:58 Last Admin: 12/28/21 09:32 Dose: 1 ea Documented by: Multi-Ingredient Cream (Eucerin Cr 120 Gm Jar) 1 appln EXT BID PRN PRN Reason: DRY SKIN ON SOLES/LEGS Stop: 01/22/22 13:28 Nicotine (Nicotine 21 Mg/24 Hr Tdsy) 21 mg TD QAM [facility] Stop: 01/17/22 15:29 Last Admin: 12/28/21 09:32 Dose: 21 mg Documented by: Nitroglycerin (Nitroglycerin Sl 0.4 Mg/Tab Tab) 0.4 mg SL UD PRN PRN Reason: CHEST PAIN Stop: 01/16/22 22:10 Ondansetron HCl (Ondansetron Inj 2 Mg/Ml 2 Ml Vial) 4 mg IV Q6H PRN PRN Reason: Nausea Stop: 01/16/22 22:10 Last Admin: 12/18/21 04:16 Dose: 4 mg Documented by: Pantoprazole Sodium (Pantoprazole 40 Mg Tab) 40 mg PO DAILYBB [facility] Stop: 01/17/22 06:29 Last Admin: 12/28/21 06:47 Dose: 40 mg Documented by: Polyethylene Glycol (Polyethylene (Miralax) 17 Gm Pack) 17 gm PO DAILY [facility] Stop: 01/22/22 13:29 Last Admin: 12/28/21 09:34 Dose: 17 gm Documented by: Potassium Chloride (Potassium Chloride Crtab 20 Meq Tabcr) 20 meq PO BID [facility] Stop: 01/16/22 22:10 Last Admin: 12/28/21 09:26 Dose: 20 meq Documented by: Senna/Docusate Sodium (Docusate Sodium/Senna 50/8.6mg Tab) 2 tab PO BID [facility] Stop: 01/20/22 20:59 Last Admin: 12/28/21 09:28 Dose: 2 tab Documented by: Sodium Chloride (Sodium Chloride 0.65% Na Soln 45 Ml ([place])) 2 sprays NA PRN PRN PRN Reason: Nasal Congestion Stop: 01/19/22 13:58 Last Admin: 12/20/21 14:43 Dose: 2 sprays Documented by: Spironolactone (Spironolactone 25 Mg Tab) 25 mg PO QAM [facility] Stop: 01/17/22 08:59 Last Admin: 12/28/21 09:29 Dose: 25 mg Documented by: Tamsulosin HCl (Tamsulosin Hcl 0.4 Mg Cap) 0.4 mg PO QAM [facility] Stop: 01/17/22 08:59 Last Admin: 12/28/21 09:31 Dose: 0.4 mg Documented by: Umeclidinium [place] (Umeclidinium [place] 62.5mcg/Blister 7 Puffs/Inhaler) 1 puffs INH QAM [facility] Stop: 01/17/22 08:59 Last Admin: 12/28/21 09:33 Dose: 1 puffs Documented by: Warfarin Sodium (Warfarin Sod 5 Mg Tab) 5 mg PO DAILY@1600 [facility] Stop: 01/27/22 15:59 Warfarin Sodium (Warfarin Sod 2.5 Mg Tab) 2.5 mg PO ONCE ONE Stop: 12/28/21 16:01
[2021-12-28] MEDS: buprenorphine HCL 2 MG SUBL SL SCH (12:12)
[2021-12-28] MEDS ORDERED: WARFARIN SOD 2.5 MG TAB PO ONE (16:00)
[2021-12-28] MEDS: WARFARIN SOD 5 MG TAB PO SCH (17:17)
[2021-12-28] MEDS: ALBUTEROL HFA 8 GM INHALER INH PRN (21:33)
[2021-12-28] MEDS: CYCLOBENZAPRINE HCL 10 MG TAB PO PRN (21:34)
[2021-12-28] MEDS: MELATONIN 3 MG TAB PO PRN (21:34)
[2021-12-28] MEDS: LORazepam 0.5 MG TAB PO PRN (21:34)
[2021-12-28] MEDS: ATORVASTATIN 40 MG TAB PO SCH (21:35)
[2021-12-29] MEDS ORDERED: ACETAMINOPHEN 65 ML IV ONE (03:00)
[2021-12-29] MEDS: FUROSEMIDE 40 MG/4 ML VIAL IV SCH ×3 (06:17→17:02)
[2021-12-29] MEDS: PANTOprazole 40 MG TAB PO SCH (06:23)
--- NOTE | 2021-12-29 06:51 | Communication Note ---
Date of Service: December 29, 2021 Patient complaining of back pain sharp and shooting down his sides and flank area as per RN. CT abdomen pelvis initial read: Diffuse bladder wall thickening out of proportion to degree of under distention which likelyrelates to cystitis. No evidence of obstructive renal calculus. Nonobstructive 5 mmcalculuswithin the interpolar right kidney. Appendectomychanges. No evidence of bowel obstruction. Mild consolidation within the left lower lobe with small left greater than right pleural effusions. Additional deep and bronchiectasis. Findings mayrelate to sequela of chronic infection. No other acute findings. AP Possible complicated UTI No sepsis for now Obtain UA Will relay to AM provider.
[2021-12-29] MEDS: INSULIN ASPART PER UNIT SC SCH ×4 (08:08→21:16)
[2021-12-29] MEDS: INSULIN GLARGINE SOLOSTAR 100 UNITS/ML 3 ML PEN SC SCH ×2 (08:09→21:17)
[2021-12-29 08:27] LABS: BUN Creatinine Ratio 18.2 (10-20); Calcium 9.4 mg/dl (8.5-10.1); Creatinine Clr Calc Pharmacy 143.4 ml/min; Est GFR (African American) 89.6 ml/min; Est GFR (Non-African American) 77.3 ml/min; Magnesium 1.9 mg/dl (1.7-2.4); Potassium 3.5 mmol/L (3.5-5.1)
[2021-12-29] MEDS: METOPROLOL SUCC 25MG EXT REL TAB PO SCH ×2 (08:37→21:18)
[2021-12-29 08:38] LABS: INR 1.8 (0.9-1.1); Prothrombin Time 18.5 Seconds (9.0-12.0)
[2021-12-29] MEDS: FINASTERIDE 5 MG TAB PO SCH (08:38)
[2021-12-29] MEDS: buprenorphine HCL 8 MG SUBL SL SCH ×2 (08:38→21:14)
[2021-12-29] MEDS: NICOTINE 21 MG/24 HR TDSY TD SCH (08:39)
[2021-12-29] MEDS: POLYETHYLENE (MIRALAX) 17 GM PACK PO SCH (08:39)
[2021-12-29] MEDS: SPIRONOLACTONE 25 MG TAB PO SCH (08:39)
[2021-12-29] MEDS: FAMOTIDINE 20 MG TAB PO SCH (08:39)
[2021-12-29] MEDS: ASPIRIN 81 MG ECTAB PO SCH (08:40)
[2021-12-29] MEDS: FERROUS SULFATE 325 MG TAB PO SCH (08:40)
[2021-12-29] MEDS: ISOSORBIDE MONO EXTENDED REL 30 MG TABCR PO SCH (08:40)
[2021-12-29] MEDS: DULoxetine HCL 60 MG CAP PO SCH (08:41)
[2021-12-29] MEDS: guaiFENesin 600 MG TABCR PO SCH ×2 (08:41→21:16)
[2021-12-29] MEDS: FOLIC ACID 1 MG TAB PO SCH (08:41)
[2021-12-29] MEDS: POTASSIUM CHLORIDE CRTAB 20 MEQ TABCR PO SCH ×2 (08:41→21:19)
[2021-12-29 08:42] LABS: Appearance Urine Clear (Clear); Bilirubin Urine Negative (Negative); Blood Urine Negative (Negative); Color Urine Yellow; Glucose Urine UA Negative (Negative); Ketones Urine Negative (Negative); Leukocyte Esterase Urine Negative (Negative); Nitrite Urine Negative (Negative); Protein Urine Negative (Negative); Urobilinogen Urine Negative (Negative)
[2021-12-29] MEDS: DOCUSATE SODIUM/SENNA 50/8.6MG TAB PO SCH ×2 (08:42→21:15)
--- NOTE | 2021-12-29 08:42 | CT Scan Report ---
CT abd pelvis wo con CLINICAL HISTORY: Bilateral flank pain and low back pain. COMPARISON STUDY: 01/13/2021 CT DOSE: 2076.04 mGy.cm TECHNIQUE: Standard CT of the Abdomen and Pelvis was performed without IV contrast. The patient did not receive oral contrast. A dose lowering technique was utilized adhering to the principles of KENNEDY Malagon. FINDINGS: Lung base: Minimal linear scarring is seen at the lung bases. The lung bases are otherwise clear. Abdominal cavity: There is no evidence for abdominal mass, adenopathy or ascites. Liver: The liver is homogeneous in attenuation on these limited noncontrast images.. Spleen: The spleen is homogeneous in attenuation on these limited noncontrast images. Pancreas: The pancreas is homogeneous in attenuation on these limited noncontrast images. Gall Bladder: The gallbladder is contracted due to the patient's nonfasting state. Adrenal glands: The adrenal glands are normal in size and attenuation on these limited noncontrast im ages. Kidneys: The kidneys are homogeneous in attenuation on these limited noncontrast images. There is no evidence for gross renal mass, calyceal calculus or hydronephrosis bilaterally. There is a 4 mm paren chymal calcification on the right. Bowel: There is a small hiatal hernia. The stomach is distended with liquid and food stuff. The bowel loops are normally placed within the abdomen and pelvis without evidence for dilatation or obstructi on. There is no evidence for mass lesion. There is evidence for previous partial colonic resection wi th end-to-end anastomosis. There are no inflammatory changes present. There is no evidence for free a ir. The appendix is not visualized. Bladder: There is no evidence for focal bladder wall thickening, calculus or diverticulum. There is m ild diffuse bladder wall thickening which can be seen with chronic bladder outlet obstruction. : There is no evidence for pelvic mass or adenopathy. Vasculature: There is no evidence for focal aneurysmal dilatation of the abdominal aorta. Osseous structures: There is no acute osseous pathology. Degenerative changes are seen within the spi ne. IMPRESSION: 1. No obstructing renal calculus or hydronephrosis bilaterally. 2. 4 mm parenchymal calcification on the right. 3. Mild diffuse thickening of bladder wall which is probably related to chronic bladder outlet obstru ction. 4. Mild degenerative changes of the lumbar spine. 5. Otherwise, no acute intra-abdominal or pelvic abnormality on these limited noncontrast images. 6. Additional nonacute findings are delineated above. ACT 112: Negative or not required by law. Electronically signed by: Sandip Chawla M.D. 12/29/2021 8:39 AM
[2021-12-29] MEDS: FLUTICASONE PROPIONATE NA SPR 16 GM BTL NAE SCH (08:43)
[2021-12-29] MEDS: TAMSULOSIN HCL 0.4 MG CAP PO SCH (08:43)
[2021-12-29] MEDS: MAGNESIUM OXIDE 400 MG TAB PO SCH (08:43)
[2021-12-29] MEDS: GABAPENTIN 800 MG TAB PO SCH ×3 (08:43→21:16)
[2021-12-29] MEDS: UMECLIDINIUM BROMIDE 62.5MCG/BLISTER 7 PUFFS/INHALER INH SCH (08:44)
[2021-12-29] MEDS: ACETAMINOPHEN 1,000 MG/100 ML VIAL IV PRN (08:44)
--- NOTE | 2021-12-29 12:22 | Hospitalist Progress Note ---
Date of Service December 29, 2021 Assessment & Plan (1) Acute on chronic heart failure with preserved ejection fraction: Plan: Pt is 49 y/o M with PMH DM II, HTN, H/O PE, on Coumadin, diastolic CHF, chronic back pain, COPD, urinary retention with chronic Lloyd that was recently removed after voiding trial, depression, anxiety, history of recurrent hospitalizations, h/o subdural hematoma, SAH, STEMI presented to ER with c/o BLE edema and 30 pound weight gain over past 2 weeks. Uses 4 L oxygen at bedtime. Home O2 sats reported 89 to 92%. Denies cough, fever, chest pain. In ER reported to be hypoxic, improved to 92% on 2 L via nasal cannula, remaining vitals WNL. Negative troponin. BNP: 62. Chest x-ray without acute findings. In ER given 40 mg Lasix IV Acute on chronic diastolic CHF Continue daily weight, strict I and Os, salt and fluid restriction- 1800cc. Echo from 07/2021: EF: 60-65%, mild tricuspid regurgitation Monitor renal function, electrolytes while on diuresis difficult to assess fluid status based on physical exam alone due to body habitus, but edema does appear to be improving Down to 201Kg Patient unsure of his "dry weight" Back pain -CT A/P 12/28 overnight unremarkable -UA negative -likely back spasm/ MSK BPH - his chronic Lloyd was removed on 12/03/2021. Currently voiding without issues. Continue tamsulosin, finasteride. History PE- On chronic Coumadin; INR 1.8 -continue coumadin 5mg daily COPD (chronic obstructive pulmonary disease): no exacerbation, no wheezes, continue home inhalers, nebs prn. History obesity hypoventilation syndrome- Uses 4 L oxygen at bedtime and as needed -Would benefit from sleep study as OP DM type 2 (diabetes mellitus, type 2): A1c: 7.6 on 12/16/2021; hold home meds; continue insulin- will adjust as indicated. Blood sugar has been reasonably controlled. CAD- Denies current chest pain; Continue aspirin, atorvastatin, metoprolol succinate Chronic pain: Continue gabapentin, Suboxone. Will have iv tylenol bid prn for breakthrough pain. Morbid obesity: BMI: 64 recommend establishing care with bariatric surgery Constipation- on bowel regimen with lactulose, pericolace- will make miralax scheduled. He does not want a suppository or mag citrate at this point. Will follow. DVT Prophylaxis- On Coumadin Dispo- Plan to discharge home when weight reaches 200kg. Estimated 12/30 Admission and Anticipated Discharge Date Admission Date: December 17, 2021 Subjective Overnight complained of sharp back pain and "I woke up and the bed was drenched", he doesn't know if he urinated in bed but "I must've of" Now asking whether he should go to rehab (he has been observed ambulating in his room independently) Physical Exam Physical Exam: Morbidly obese, non toxic Respiratory: diminished at bases, no wheezing Cardiovascular: regular rate and rhythm, no murmurs/rubs/gallops Gastrointestinal (Abdomen): Obese Musculoskeletal: swelling improved Results & Data Results & Data ([facility]) Vital Signs (Past 12 Hours) Vital Signs Temp Pulse Pulse Resp BP BP Pulse Ox 12/29/21 11:42 36.9 C 71 18 153/70 H 97 12/29/21 09:56 69 12/29/21 07:48 36.8 C 74 20 128/71 96 12/29/21 02:44 36.8 C 71 18 128/76 97 Laboratory Results BMP 12/29/21 07:39 Sodium 140 Potassium 3.5 Chloride 98 Carbon Dioxide 38 H BUN 20 Creatinine 1.10 Glucose 135 H Calcium 9.4 Urine 12/29/21 Range/Units 08:00 Urine Color Yellow Urine Appearance Clear (Clear) Urine pH 7.0 (4.5-7.5) Ur Specific [place] 1.010 (1.000-1.030) Urine Protein Negative (Negative) Urine Glucose (UA) Negative (Negative) Medications Administered Current Inpatient Medications Acetaminophen (Acetaminophen 325 Mg Tab) 650 mg PO Q4H PRN PRN Reason: Pain or Fever Stop: 01/16/22 22:10 Albuterol (Albut/Ipratrop 3mg/0.5mg Neb 3 Ml Vial) 3 ml NEB QIDR PRN; Protocol PRN Reason: Shortness Of Breath Or Wheezing Stop: 01/17/22 06:59 Albuterol (Albuterol Hfa 8 Gm Inhaler) 2 puffs INH Q4 PRN PRN Reason: Shortness Of Breath Or Wheezing Stop: 01/18/22 12:00 Last Admin: 12/28/21 21:33 Dose: 2 puffs Documented by: Aspirin (Aspirin 81 Mg Ectab) 81 mg PO QAM [facility] Stop: 01/17/22 08:59 Last Admin: 12/29/21 08:40 Dose: 81 mg Documented by: Atorvastatin Calcium (Atorvastatin 40 Mg Tab) 80 mg PO QPM [facility] Stop: 01/16/22 22:10 Last Admin: 12/28/21 21:35 Dose: 80 mg Documented by: Benzonatate (Benzonatate 100 Mg Capsule) 100 mg PO TID PRN PRN Reason: Cough Stop: 01/25/22 12:52 Last Admin: 12/26/21 20:46 Dose: 100 mg Documented by: Bisacodyl (Bisacodyl 10 Mg Supp) 10 mg [place] DAILY PRN PRN Reason: Constipation Stop: 01/23/22 18:48 Buprenorphine HCl (Buprenorphine Hcl 8 Mg Subl) 8 mg SL BID [facility] Stop: 01/17/22 08:59 Last Admin: 12/29/21 08:38 Dose: 8 mg Documented by: Buprenorphine HCl (Buprenorphine Hcl 2 Mg Subl) 4 mg SL DAILY@1200 [facility] Stop: 01/17/22 11:59 Last Admin: 12/28/21 12:12 Dose: 4 mg Documented by: Cyclobenzaprine HCl (Cyclobenzaprine Hcl 10 Mg Tab) 10 mg PO BID PRN PRN Reason: Muscle Spasm Stop: 01/16/22 22:10 Last Admin: 12/28/21 21:34 Dose: 10 mg Documented by: Dextrose (Dextrose 50% 50 Ml Syringe) 25 - 50 ml IV UD PRN; Protocol PRN Reason: Hypoglycemia Protocol Stop: 01/16/22 22:10 Duloxetine HCl (Duloxetine Hcl 60 Mg Cap) 60 mg PO DAILY [facility] Stop: 01/17/22 08:59 Last Admin: 12/29/21 08:41 Dose: 60 mg Documented by: Famotidine (Famotidine 20 Mg Tab) 20 mg PO DAILY [facility] Stop: 01/17/22 08:59 Last Admin: 12/29/21 08:39 Dose: 20 mg Documented by: Ferrous Sulfate (Ferrous Sulfate 325 Mg Tab) 325 mg PO QAM [facility] Stop: 01/17/22 08:59 Last Admin: 12/29/21 08:40 Dose: 325 mg Documented by: Finasteride (Finasteride 5 Mg Tab) 5 mg PO QAM [facility] Stop: 01/17/22 08:59 Last Admin: 12/29/21 08:38 Dose: 5 mg Documented by: Fluticasone Propionate (Fluticasone Propionate Na Spr 16 Gm Btl) 2 sprays HANSA DAILY [facility] Stop: 01/17/22 08:59 Last Admin: 12/29/21 08:43 Dose: 2 sprays Documented by: Folic Acid (Folic Acid 1 Mg Tab) 1 mg PO QAM [facility] Stop: 01/17/22 08:59 Last Admin: 12/29/21 08:41 Dose: 1 mg Documented by: Furosemide (Furosemide 40 Mg/4 Ml Vial) 40 mg IV TID@0600,1200,1800 [facility] Stop: 01/26/22 17:59 Last Admin: 12/29/21 06:17 Dose: 40 mg Documented by: Gabapentin (Gabapentin 800 Mg Tab) 800 mg PO TID [facility] Stop: 01/16/22 22:10 Last Admin: 12/29/21 08:43 Dose: 800 mg Documented by: Glucagon (Glucagon For Inj 1 Mg Vial) 1 mg SQ UD PRN; Protocol PRN Reason: Hypoglycemia Protocol Stop: 01/16/22 22:10 Glucose (Glucose 10 Tabs/Tube) 4 - 8 tabs PO UD PRN; Protocol PRN Reason: Hypoglycemia Protocol Stop: 01/16/22 22:10 Glucose (Glucose 40% Gel 15 Gm Tube) 15 - 30 gm PO UD PRN; Protocol PRN Reason: Hypoglycemia Protocol Stop: 01/16/22 22:10 Guaifenesin (Guaifenesin 600 Mg Tabcr) 1,200 mg PO Q12 [facility] Stop: 01/20/22 20:59 Last Admin: 12/29/21 08:41 Dose: 1,200 mg Documented by: Hydroxyzine HCl (Hydroxyzine Hcl 25 Mg Tab) 25 mg PO QID PRN PRN Reason: Anxiety Stop: 01/16/22 22:10 Acetaminophen (Ofirmev) 1,000 mg in 100 mls @ 400 mls/hr IV BID PRN PRN Reason: PAIN OR FEVER Stop: 12/29/21 19:27 Last Infusion: 12/29/21 09:36 Dose: Infused Documented by: Insulin Aspart (Insulin Aspart Per Unit) 0 units SC ACHS [facility] Stop: 01/16/22 22:10 Last Admin: 12/29/21 11:55 Dose: 16 units Documented by: Insulin Glargine (Insulin Glargine Solostar 100 Units/Ml 3 Ml Pen) 25 units SC BID [facility] Stop: 01/16/22 22:10 Last Admin: 12/29/21 08:09 Dose: 25 units Documented by: Isosorbide Mononitrate (Isosorbide [place] Extended Rel 30 Mg Tabcr) 30 mg PO DAILY [facility] Stop: 01/17/22 08:59 Last Admin: 12/29/21 08:40 Dose: 30 mg Documented by: Lorazepam (Lorazepam 0.5 Mg Tab) 0.5 mg PO Q8 PRN PRN Reason: Anxiety Stop: 01/16/22 22:10 Last Admin: 12/28/21 21:34 Dose: 0.5 mg Documented by: Magnesium Oxide (Magnesium Oxide 400 Mg Tab) 400 mg PO DAILY [facility] Stop: 01/17/22 08:59 Last Admin: 12/29/21 08:43 Dose: 400 mg Documented by: Melatonin (Melatonin 3 Mg Tab) 9 mg PO HS PRN PRN Reason: Sleep Stop: 01/17/22 01:04 Last Admin: 12/28/21 21:34 Dose: 9 mg Documented by: Menthol (Cough Drop (Sugar Free) Lashon 24 Lashon/1 Box) 1 lashon BUCCAL TID PRN PRN Reason: Sore Throat Stop: 01/25/22 12:52 Metoprolol Succinate (Metoprolol Succ 25mg Ext Rel Tab) 75 mg PO BID [facility] Stop: 01/16/22 22:10 Last Admin: 12/29/21 08:37 Dose: 75 mg Documented by: Miscellaneous (Carbohydrates For Hypoglycemia ) 15 - 30 gm PO UD PRN PRN Reason: Hypoglycemia Protocol Stop: 01/16/22 22:10 Miscellaneous (Remove Nicoderm Patch) 1 ea N/A DAILY@0859 [facility] Stop: 01/18/22 08:58 Last Admin: 12/29/21 08:42 Dose: 1 ea Documented by: Multi-Ingredient Cream (Eucerin Cr 120 Gm Jar) 1 appln EXT BID PRN PRN Reason: DRY SKIN ON SOLES/LEGS Stop: 01/22/22 13:28 Nicotine (Nicotine 21 Mg/24 Hr Tdsy) 21 mg TD QAM [facility] Stop: 01/17/22 15:29 Last Admin: 12/29/21 08:39 Dose: 21 mg Documented by: Nitroglycerin (Nitroglycerin Sl 0.4 Mg/Tab Tab) 0.4 mg SL UD PRN PRN Reason: CHEST PAIN Stop: 01/16/22 22:10 Ondansetron HCl (Ondansetron Inj 2 Mg/Ml 2 Ml Vial) 4 mg IV Q6H PRN PRN Reason: Nausea Stop: 01/16/22 22:10 Last Admin: 12/18/21 04:16 Dose: 4 mg Documented by: Pantoprazole Sodium (Pantoprazole 40 Mg Tab) 40 mg PO DAILYBB [facility] Stop: 01/17/22 06:29 Last Admin: 12/29/21 06:23 Dose: 40 mg Documented by: Polyethylene Glycol (Polyethylene (Miralax) 17 Gm Pack) 17 gm PO DAILY [facility] Stop: 01/22/22 13:29 Last Admin: 12/29/21 08:39 Dose: 17 gm Documented by: Potassium Chloride (Potassium Chloride Crtab 20 Meq Tabcr) 40 meq PO BID [facility] Stop: 01/28/22 20:59 Senna/Docusate Sodium (Docusate Sodium/Senna 50/8.6mg Tab) 2 tab PO BID [facility] Stop: 01/20/22 20:59 Last Admin: 12/29/21 08:42 Dose: 2 tab Documented by: Sodium Chloride (Sodium Chloride 0.65% Na Soln 45 Ml (Rolfe)) 2 sprays NA PRN PRN PRN Reason: Nasal Congestion Stop: 01/19/22 13:58 Last Admin: 12/20/21 14:43 Dose: 2 sprays Documented by: Spironolactone (Spironolactone 25 Mg Tab) 25 mg PO QAM [facility] Stop: 01/17/22 08:59 Last Admin: 12/29/21 08:39 Dose: 25 mg Documented by: Tamsulosin HCl (Tamsulosin Hcl 0.4 Mg Cap) [facility] Stop: 01/17/22 08:59 Last Admin: 12/29/21 08:43 Dose: 0.4 mg Documented by: Umeclidinium [place] (Umeclidinium [place] 62.5mcg/Blister 7 Puffs/Inhaler) 1 puffs [facility]H [facility] Stop: 01/17/22 08:59 Last Admin: 12/29/21 08:44 Dose: 1 puffs Documented by: Warfarin Sodium (Warfarin Sod 5 Mg Tab) 5 mg PO DAILY@1600 [facility] Stop: 01/27/22 15:59 Last Admin: 12/28/21 17:17 Dose: 5 mg Documented by:
[2021-12-29] MEDS: buprenorphine HCL 2 MG SUBL SL SCH (12:37)
[2021-12-29] MEDS: WARFARIN SOD 5 MG TAB PO SCH (16:18)
[2021-12-29] MEDS ORDERED: metOLazone 5 MG TABLET PO ONE (17:00)
[2021-12-29] MEDS: ATORVASTATIN 40 MG TAB PO SCH (21:13)
[2021-12-29] MEDS: CYCLOBENZAPRINE HCL 10 MG TAB PO PRN (21:25)
[2021-12-29] MEDS: MELATONIN 3 MG TAB PO PRN (21:25)
[2021-12-29] MEDS: LORazepam 0.5 MG TAB PO PRN (21:25)
[2021-12-30] MEDS: FUROSEMIDE 40 MG/4 ML VIAL IV SCH ×2 (06:11→12:13)
[2021-12-30] MEDS: PANTOprazole 40 MG TAB PO SCH (06:12)
[2021-12-30] MEDS: INSULIN ASPART PER UNIT SC SCH ×4 (08:26→21:26)
[2021-12-30] MEDS: ACETAMINOPHEN 1,000 MG/100 ML VIAL IV PRN ×2 (08:27→16:20)
[2021-12-30] MEDS: NICOTINE 21 MG/24 HR TDSY TD SCH (08:30)
[2021-12-30] MEDS: guaiFENesin 600 MG TABCR PO SCH ×2 (08:30→20:56)
[2021-12-30] MEDS: ASPIRIN 81 MG ECTAB PO SCH (08:31)
[2021-12-30] MEDS: FINASTERIDE 5 MG TAB PO SCH (08:31)
[2021-12-30] MEDS: POTASSIUM CHLORIDE CRTAB 20 MEQ TABCR PO SCH ×2 (08:31→21:24)
[2021-12-30] MEDS: TAMSULOSIN HCL 0.4 MG CAP PO SCH (08:31)
[2021-12-30] MEDS: MAGNESIUM OXIDE 400 MG TAB PO SCH (08:32)
[2021-12-30] MEDS: DULoxetine HCL 60 MG CAP PO SCH (08:32)
[2021-12-30] MEDS: ISOSORBIDE MONO EXTENDED REL 30 MG TABCR PO SCH (08:32)
[2021-12-30] MEDS: FERROUS SULFATE 325 MG TAB PO SCH (08:32)
[2021-12-30] MEDS: FOLIC ACID 1 MG TAB PO SCH (08:32)
[2021-12-30] MEDS: FAMOTIDINE 20 MG TAB PO SCH (08:32)
[2021-12-30] MEDS: METOPROLOL SUCC 25MG EXT REL TAB PO SCH ×2 (08:32→20:56)
[2021-12-30] MEDS: buprenorphine HCL 8 MG SUBL SL SCH ×2 (08:33→21:24)
[2021-12-30] MEDS: SPIRONOLACTONE 25 MG TAB PO SCH (08:33)
[2021-12-30] MEDS: FLUTICASONE PROPIONATE NA SPR 16 GM BTL NAE SCH (08:34)
[2021-12-30] MEDS: POLYETHYLENE (MIRALAX) 17 GM PACK PO SCH (08:34)
[2021-12-30] MEDS: GABAPENTIN 800 MG TAB PO SCH ×3 (08:34→20:56)
[2021-12-30] MEDS: UMECLIDINIUM BROMIDE 62.5MCG/BLISTER 7 PUFFS/INHALER INH SCH (08:34)
[2021-12-30] MEDS: DOCUSATE SODIUM/SENNA 50/8.6MG TAB PO SCH ×2 (08:34→20:55)
[2021-12-30] MEDS: INSULIN GLARGINE SOLOSTAR 100 UNITS/ML 3 ML PEN SC SCH ×2 (08:35→20:57)
[2021-12-30 08:36] LABS: Prothrombin Time 20.6 Seconds (9.0-12.0)
[2021-12-30 10:11] LABS: BUN Creatinine Ratio 21.3 (10-20); Calcium 10.1 mg/dl (8.5-10.1); Creatinine Clr Calc Pharmacy 145.5 ml/min; Est GFR (African American) 91.6 ml/min; Magnesium 1.9 mg/dl (1.7-2.4); Potassium 3.5 mmol/L (3.5-5.1)
[2021-12-30] MEDS: buprenorphine HCL 2 MG SUBL SL SCH (12:13)
[2021-12-30] MEDS ORDERED: MINERAL OIL ENEMA 133 ML BTL PR ONE (13:43)
[2021-12-30] MEDS: WARFARIN SOD 5 MG TAB PO SCH (16:10)
--- NOTE | 2021-12-30 16:29 | Hospitalist Progress Note ---
Date of Service December 30, 2021 Assessment & Plan (1) Acute on chronic heart failure with preserved ejection fraction: Plan: Pt is 49 y/o M with PMH DM II, HTN, H/O PE, on Coumadin, diastolic CHF, chronic back pain, COPD, urinary retention with chronic Lloyd that was recently removed after voiding trial, depression, anxiety, history of recurrent hospitalizations, h/o subdural hematoma, SAH, STEMI presented to ER with c/o BLE edema and 30 pound weight gain over past 2 weeks. Uses 4 L oxygen at bedtime. Home O2 sats reported 89 to 92%. Denies cough, fever, chest pain. In ER reported to be hypoxic, improved to 92% on 2 L via nasal cannula, remaining vitals WNL. Negative troponin. BNP: 62. Chest x-ray without acute findings. In ER given 40 mg Lasix IV Acute on chronic diastolic CHF Continue daily weight, strict I and Os, salt and fluid restriction- 1800cc. Echo from 07/2021: EF: 60-65%, mild tricuspid regurgitation Monitor renal function, electrolytes while on diuresis difficult to assess fluid status based on physical exam alone due to body habitus, but edema does appear to be improving with presence of wrinkles on hands/legs Patient unsure of his "dry weight" Overall he is net (-) 28L. Weight on presentation 214.1kg, current weight 201.5kg -At discharge, would recommend lasix 40mg PO BID (his home dose) and add metolazone 2.5mg MWF Back pain, worsened -CT A/P 12/28 overnight unremarkable -UA negative -Patient reports worsening lower back pain with radiation down left leg. Will ask for Orthopedic surgery evaluation. BPH - his chronic Lloyd was removed on 12/03/2021. Currently voiding without issues. Continue tamsulosin, finasteride. History PE- On chronic Coumadin; INR 2 -continue coumadin 5mg daily COPD (chronic obstructive pulmonary disease): no exacerbation, no wheezes, continue home inhalers, nebs prn. History obesity hypoventilation syndrome- Uses 4 L oxygen at bedtime and as needed -Would benefit from sleep study as OP DM type 2 (diabetes mellitus, type 2): A1c: 7.6 on 12/16/2021; hold home meds; continue insulin- will adjust as indicated. Blood sugar has been reasonably controlled. CAD- Denies current chest pain; Continue aspirin, atorvastatin, metoprolol succinate Chronic pain: Continue gabapentin, Suboxone. Will have iv tylenol bid prn for breakthrough pain. Morbid obesity: BMI: 64 recommend establishing care with bariatric surgery which patient is very motivated to do Constipation- on bowel regimen with lactulose, pericolace. Patient now agreeable for enema--> ordered DVT Prophylaxis- On Coumadin Dispo- Plan to discharge home pending ortho evaluation. Admission and Anticipated Discharge Date Admission Date: December 17, 2021 Subjective Feels short of breath Constipated urinary incontinence past 2 nights, woke up bed soaking wet--> asking if lasix can be reduced back to BID Reports worsening lower back pain with shooting pain down his left leg Does not yet feel safe to go home Physical Exam Physical Exam: Obese, pleasant, sitting in chair Respiratory: Breathing comfortably, lung sounds are diminished diffusely Cardiovascular: regular rate and rhythm, no murmurs/rubs/gallops Gastrointestinal (Abdomen): soft, non tender Musculoskeletal: presence of wrinkles on hands/lower extremities (new, previously knuckles were taught with fluid) Skin: dry, scaly skin Neurologic: awake, alert, has reportedly been ambulating in room Results & Data Results & Data ([facility]) Vital Signs (Past 12 Hours) Vital Signs Temp Pulse Pulse Resp BP BP Pulse Ox 12/30/21 15:18 37.2 C 76 18 142/84 H 95 12/30/21 14:30 77 12/30/21 11:58 37.1 C 66 19 127/72 97 12/30/21 07:59 36.7 C 64 20 123/72 94 12/30/21 06:15 69 Laboratory Results [facility] 12/30/21 07:59 Sodium 139 Potassium 3.5 Chloride 96 L Carbon Dioxide 37 H BUN 23 Creatinine 1.08 Glucose 155 H Calcium 10.1
[2021-12-30] MEDS: MELATONIN 3 MG TAB PO PRN (20:56)
[2021-12-30] MEDS: ATORVASTATIN 40 MG TAB PO SCH (20:56)
[2021-12-30] MEDS: CYCLOBENZAPRINE HCL 10 MG TAB PO PRN (20:56)
[2021-12-31] MEDS: ACETAMINOPHEN 1,000 MG/100 ML VIAL IV PRN ×3 (01:31→21:07)
[2021-12-31] MEDS: PANTOprazole 40 MG TAB PO SCH (05:51)
[2021-12-31 08:22] LABS: INR 2.3 (0.9-1.1); Prothrombin Time 23.9 Seconds (9.0-12.0)
[2021-12-31 08:23] LABS: BUN Creatinine Ratio 23.7 (10-20); Calcium 9.9 mg/dl (8.5-10.1); Creatinine Clr Calc Pharmacy 137.9 ml/min; Est GFR (African American) 85.8 ml/min; Est GFR (Non-African American) 74.1 ml/min; Potassium 3.3 mmol/L (3.5-5.1)
[2021-12-31] MEDS: FUROSEMIDE 40 MG/4 ML VIAL IV SCH ×2 (08:28→17:42)
[2021-12-31] MEDS: UMECLIDINIUM BROMIDE 62.5MCG/BLISTER 7 PUFFS/INHALER INH SCH (08:28)
[2021-12-31] MEDS: FLUTICASONE PROPIONATE NA SPR 16 GM BTL NAE SCH (08:28)
[2021-12-31] MEDS: INSULIN GLARGINE SOLOSTAR 100 UNITS/ML 3 ML PEN SC SCH ×2 (08:28→21:25)
[2021-12-31] MEDS: INSULIN ASPART PER UNIT SC SCH ×4 (08:29→21:41)
[2021-12-31] MEDS: TAMSULOSIN HCL 0.4 MG CAP PO SCH (08:30)
[2021-12-31] MEDS: ISOSORBIDE MONO EXTENDED REL 30 MG TABCR PO SCH (08:30)
[2021-12-31] MEDS: METOPROLOL SUCC 25MG EXT REL TAB PO SCH ×2 (08:30→21:06)
[2021-12-31] MEDS: POTASSIUM CHLORIDE CRTAB 20 MEQ TABCR PO SCH ×2 (08:30→21:01)
[2021-12-31] MEDS: SPIRONOLACTONE 25 MG TAB PO SCH (08:30)
[2021-12-31] MEDS: buprenorphine HCL 8 MG SUBL SL SCH ×2 (08:30→21:25)
[2021-12-31] MEDS: CYCLOBENZAPRINE HCL 10 MG TAB PO PRN (08:30)
[2021-12-31] MEDS: GABAPENTIN 800 MG TAB PO SCH ×3 (08:30→21:02)
[2021-12-31] MEDS: MAGNESIUM OXIDE 400 MG TAB PO SCH (08:30)
[2021-12-31] MEDS: FERROUS SULFATE 325 MG TAB PO SCH (08:30)
[2021-12-31] MEDS: FAMOTIDINE 20 MG TAB PO SCH (08:31)
[2021-12-31] MEDS: guaiFENesin 600 MG TABCR PO SCH ×2 (08:31→21:02)
[2021-12-31] MEDS: ASPIRIN 81 MG ECTAB PO SCH (08:31)
[2021-12-31] MEDS: FINASTERIDE 5 MG TAB PO SCH (08:31)
[2021-12-31] MEDS: DULoxetine HCL 60 MG CAP PO SCH (08:31)
[2021-12-31] MEDS: DOCUSATE SODIUM/SENNA 50/8.6MG TAB PO SCH ×2 (08:31→21:01)
[2021-12-31] MEDS: FOLIC ACID 1 MG TAB PO SCH (08:31)
[2021-12-31] MEDS: POLYETHYLENE (MIRALAX) 17 GM PACK PO SCH (08:32)
[2021-12-31] MEDS: NICOTINE 21 MG/24 HR TDSY TD SCH (08:39)
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
[2021-12-31] MEDS: buprenorphine HCL 2 MG SUBL SL SCH (12:08)
[2021-12-31] MEDS ORDERED: LACTULOSE SYRUP 10 GM/15 ML BTL 960 ML PO STA (14:24)
[2021-12-31] MEDS ORDERED: LACTULOSE SYRUP 10 GM/15 ML BTL 960 ML PO PRN (14:25)
--- NOTE | 2021-12-31 14:27 | Hospitalist Progress Note ---
Date of Service December 31, 2021 Assessment & Plan (1) Acute on chronic heart failure with preserved ejection fraction: Plan: per Dr. Musa's notes with addendum: Pt is 49 y/o M with PMH DM II, HTN, H/O PE, on Coumadin, diastolic CHF, chronic back pain, COPD, urinary retention with chronic Lloyd that was recently removed after voiding trial, depression, anxiety, history of recurrent hospitalizations, h/o subdural hematoma, SAH, STEMI presented to ER with c/o BLE edema and 30 pound weight gain over past 2 weeks. Uses 4 L oxygen at bedtime. Home O2 sats reported 89 to 92%. Denies cough, fever, chest pain. In ER reported to be hypoxic, improved to 92% on 2 L via nasal cannula, remaining vitals WNL. Negative troponin. BNP: 62. Chest x-ray without acute findings. In ER given 40 mg Lasix IV Acute on chronic diastolic CHF Continue daily weight, strict I and Os, salt and fluid restriction- 1800cc. Echo from 07/2021: EF: 60-65%, mild tricuspid regurgitation Monitor renal function, electrolytes while on diuresis difficult to assess fluid status based on physical exam alone due to body habitus, but edema does appear to be improving with presence of wrinkles on hands/legs Patient unsure of his "dry weight" Overall he is net (-) 28L. Weight on presentation 214.1kg, current weight 201.5kg -At discharge, would recommend lasix 40mg PO BID (his home dose) and add metolazone 2.5mg MWF 12/31 -750 cc balance 201.5kg today continue lasix 40mg IV BID monitor closely Back pain, worsened -CT A/P 12/28 overnight unremarkable -UA negative -Patient reports worsening lower back pain with radiation down left leg. Will ask for Orthopedic surgery evaluation. 12/31 CT abd: degenerative changes in the spine Ortho: PT for now, if without improvement, consider outpatient injection or surg archie BPH - his chronic Lloyd was removed on 12/03/2021. 12/31 no issues Continue tamsulosin, finasteride. History PE- On chronic Coumadin INR 2.3 -continue coumadin 5mg daily COPD (chronic obstructive pulmonary disease): no exacerbation, no wheezes, continue home inhalers, nebs prn. 12/31 stable History obesity hypoventilation syndrome- Uses 4 L oxygen at bedtime and as needed -Would benefit from sleep study as OP DM type 2 (diabetes mellitus, type 2): A1c: 7.6 on 12/16/2021; hold home meds; continue insulin CAD- Denies current chest pain; Continue aspirin, atorvastatin, metoprolol succinate Chronic pain: Continue gabapentin, Suboxone. Will have iv tylenol bid prn for breakthrough pain. Morbid obesity: BMI: 64 recommend establishing care with bariatric surgery which patient is very motivated to do ConstipatioN declining enema Lactulose ordered DVT Prophylaxis- On Coumadin Dispo- d/c home in 1-2 days Admission and Anticipated Discharge Date Admission Date: December 17, 2021 Subjective ff up for chronic diastolic CHF exacerbation, etc seen resting in bed, on 2 L NC comfortable, not in distress ALEXANDER Thomas at bedside states he feels tired today still has low back pain- significant breathing is ok no chest pain, palpitations, dizziness, bleeding no other symptoms Review of Systems Review of Systems: all noted and negative except for above Physical Exam Physical Exam: General- oriented x 3, not in distress, speaks in sentences with no effort or accessory muscle use Head- atraumatic Eyes- PERRL, EOMI, anicteric ENT- oropharynx clear Neck- supple, no JVD, no adenopathy, no thyromegaly; carotids +2/2, no bruits appreciated Lungs- clear to auscultation bilaterally, no rales/wheezes Heart- normal rate, regular rhythm; no murmur, no gallop, no rub appreciated Abdomen- normal bowel sounds, nondistended, soft, nontender, no masses or hepatosplenomegaly Extremities- mild lower ext edema, no calf tenderness; peripheral pulses intact Neuro- alert, oriented x 3; CN 2-12 grossly intact; motor 5/5 bilaterally;sen sation 100% on all extremities; no other gross focal neurologic deficits Skin- warm & dry Results & Data Results & Data ([facility]) Vital Signs (Past 12 Hours) Vital Signs Temp Pulse Pulse Resp BP BP Pulse Ox 12/31/21 11:14 36.7 C 64 16 194/64 H 96 12/31/21 07:38 36.5 C 73 18 137/71 97 12/31/21 03:14 37.0 C 67 18 129/64 95 12/31/21 03:07 80 all noted and reviewed including below
[2021-12-31] MEDS ORDERED: WARFARIN SOD 5 MG TAB PO SCH (16:00)
[2021-12-31] MEDS: WARFARIN SOD 5 MG TAB PO SCH (17:42)
[2021-12-31] MEDS: ATORVASTATIN 40 MG TAB PO SCH (21:03)
[2021-12-31] MEDS: MELATONIN 3 MG TAB PO PRN (21:06)
[2021-12-31] MEDS: LORazepam 0.5 MG TAB PO PRN (21:06)
[2022-01-01] MEDS: PANTOprazole 40 MG TAB PO SCH (05:19)
[2022-01-01] MEDS: INSULIN ASPART PER UNIT SC SCH ×4 (08:20→21:21)
[2022-01-01] MEDS: ASPIRIN 81 MG ECTAB PO SCH (08:23)
[2022-01-01] MEDS: DULoxetine HCL 60 MG CAP PO SCH (08:24)
[2022-01-01] MEDS: FAMOTIDINE 20 MG TAB PO SCH (08:25)
[2022-01-01] MEDS: FINASTERIDE 5 MG TAB PO SCH (08:26)
[2022-01-01] MEDS: FERROUS SULFATE 325 MG TAB PO SCH (08:26)
[2022-01-01] MEDS: FOLIC ACID 1 MG TAB PO SCH (08:27)
[2022-01-01] MEDS: GABAPENTIN 800 MG TAB PO SCH ×3 (08:28→21:07)
[2022-01-01] MEDS: guaiFENesin 600 MG TABCR PO SCH ×2 (08:29→21:05)
[2022-01-01] MEDS: ISOSORBIDE MONO EXTENDED REL 30 MG TABCR PO SCH (08:31)
[2022-01-01] MEDS: DOCUSATE SODIUM/SENNA 50/8.6MG TAB PO SCH ×2 (08:32→21:07)
[2022-01-01] MEDS: METOPROLOL SUCC 25MG EXT REL TAB PO SCH ×2 (08:33→21:07)
[2022-01-01] MEDS: MAGNESIUM OXIDE 400 MG TAB PO SCH (08:33)
[2022-01-01] MEDS: POLYETHYLENE (MIRALAX) 17 GM PACK PO SCH (08:35)
[2022-01-01] MEDS: NICOTINE 21 MG/24 HR TDSY TD SCH (08:36)
[2022-01-01] MEDS: POTASSIUM CHLORIDE CRTAB 20 MEQ TABCR PO SCH ×2 (08:39→21:06)
[2022-01-01] MEDS: SPIRONOLACTONE 25 MG TAB PO SCH (08:42)
[2022-01-01] MEDS: TAMSULOSIN HCL 0.4 MG CAP PO SCH (08:43)
[2022-01-01] MEDS: FUROSEMIDE 40 MG/4 ML VIAL IV SCH ×2 (08:45→16:38)
[2022-01-01] MEDS: UMECLIDINIUM BROMIDE 62.5MCG/BLISTER 7 PUFFS/INHALER INH SCH (09:09)
[2022-01-01] MEDS: buprenorphine HCL 8 MG SUBL SL SCH ×2 (09:10→21:06)
[2022-01-01] MEDS: FLUTICASONE PROPIONATE NA SPR 16 GM BTL NAE SCH (09:12)
[2022-01-01] MEDS: INSULIN GLARGINE SOLOSTAR 100 UNITS/ML 3 ML PEN SC SCH ×2 (09:16→21:08)
[2022-01-01 09:20] LABS: INR 2.3 (0.9-1.1); Prothrombin Time 23.7 Seconds (9.0-12.0)
[2022-01-01] MEDS: ACETAMINOPHEN 1,000 MG/100 ML VIAL IV PRN ×2 (09:29→17:50)
[2022-01-01 09:39] LABS: Calcium 10.1 mg/dl (8.5-10.1); Creatinine Clr Calc Pharmacy 92.2 ml/min; Est GFR (African American) 95.9 ml/min; Est GFR (Non-African American) 82.7 ml/min; Magnesium 1.9 mg/dl (1.7-2.4); Potassium 3.6 mmol/L (3.5-5.1)
[2022-01-01] MEDS: buprenorphine HCL 2 MG SUBL SL SCH (12:35)
[2022-01-01] MEDS ORDERED: LACTULOSE SYRUP 30 GM/45 ML UDP PO STA (13:17)
--- NOTE | 2022-01-01 15:33 | Hospitalist Progress Note ---
Date of Service January 01, 2022 Assessment & Plan (1) Acute on chronic heart failure with preserved ejection fraction: Plan: per Dr. Musa's notes with addendum: Pt is 49 y/o M with PMH DM II, HTN, H/O PE, on Coumadin, diastolic CHF, chronic back pain, COPD, urinary retention with chronic Lloyd that was recently removed after voiding trial, depression, anxiety, history of recurrent hospitalizations, h/o subdural hematoma, SAH, STEMI presented to ER with c/o BLE edema and 30 pound weight gain over past 2 weeks. Uses 4 L oxygen at bedtime. Home O2 sats reported 89 to 92%. Denies cough, fever, chest pain. In ER reported to be hypoxic, improved to 92% on 2 L via nasal cannula, remaining vitals WNL. Negative troponin. BNP: 62. Chest x-ray without acute findings. In ER given 40 mg Lasix IV Acute on chronic diastolic CHF Continue daily weight, strict I and Os, salt and fluid restriction- 1800cc. Echo from 07/2021: EF: 60-65%, mild tricuspid regurgitation Monitor renal function, electrolytes while on diuresis difficult to assess fluid status based on physical exam alone due to body habitus, but edema does appear to be improving with presence of wrinkles on hands/legs Patient unsure of his "dry weight" Overall he is net (-) 28L. Weight on presentation 214.1kg, current weight 201.5kg -At discharge, would recommend lasix 40mg PO BID (his home dose) and add metolazone 2.5mg MWF 01/01 diuresing well edema further improving crea stable continue lasix 40mg IV BID anticipate transition to PO Lasix tomorrow monitor closely Back pain, worsened -CT A/P 12/28 overnight unremarkable -UA negative -Patient reports worsening lower back pain with radiation down left leg. Will ask for Orthopedic surgery evaluation. 01/01 CT abd: degenerative changes in the spine Ortho: PT for now, if without improvement, consider outpatient injection or surgery improving BPH - his chronic Lloyd was removed on 12/03/2021. 01/01 no issues Continue tamsulosin, finasteride. History PE- On chronic Coumadin INR 2.3 -continue coumadin 5mg daily COPD (chronic obstructive pulmonary disease): no exacerbation, no wheezes, continue home inhalers, nebs prn. 4/14 stable History obesity hypoventilation syndrome- Uses 4 L oxygen at bedtime and as needed -Would benefit from sleep study as OP DM type 2 (diabetes mellitus, type 2): A1c: 7.6 on 12/16/2021; hold home meds; continue insulin CAD- Denies current chest pain; Continue aspirin, atorvastatin, metoprolol succinate Chronic pain: Continue gabapentin, Suboxone. Will have iv tylenol bid prn for breakthrough pain. Morbid obesity: BMI: 64 recommend establishing care with bariatric surgery which patient is very motivated to do ConstipatioN (+) large BM after enema, lactulose will benefit from daily laxatine DVT Prophylaxis- On Coumadin Dispo- anticipate d/c home tomorrow Admission and Anticipated Discharge Date Admission Date: December 17, 2021 Subjective ff up for acute diastolic CHF etc seen resting in bedside chair ALEXANDER Chavarria at bedside throughout whole encounter states he feels ok overall today has some back pain, but tolerable breathing is ok no chest pain, dyspnea, palpitations, dizziness no other symptoms Review of Systems Review of Systems: all noted and negative except for above Physical Exam Physical Exam: General- oriented x 3, not in distress, speaks in sentences with no effort or accessory muscle use Eyes- anicteric Neck- no JVD Lungs- clear breath sounds bilaterally, no rales/wheezes Heart- normal rate, regular rhythm; no murmurs Abdomen- normal bowel sounds, nondistended, soft, nontender Extremities- very mild pretibial edema, no calf tenderness Neuro- alert, oriented x 3; no gross focal neurologic deficits Skin- warm & dry Results & Data Results & Data ([facility]) Vital Signs (Past 12 Hours) Vital Signs Temp Pulse Pulse Resp BP BP Pulse Ox 01/01/22 15:14 37.0 C 82 20 148/66 H 91 01/01/22 11:40 37 C 71 20 118/70 97 01/01/22 08:00 61 01/01/22 07:47 36.7 C 71 18 121/65 90 01/01/22 06:36 77 01/01/22 04:01 36.6 C 63 18 147/73 H 96 all noted and reviewed including below
[2022-01-01] MEDS: WARFARIN SOD 5 MG TAB PO SCH (16:37)
[2022-01-01] MEDS: MELATONIN 3 MG TAB PO PRN (21:06)
[2022-01-01] MEDS: ATORVASTATIN 40 MG TAB PO SCH (21:07)
[2022-01-01] MEDS: CYCLOBENZAPRINE HCL 10 MG TAB PO PRN (21:07)
[2022-01-02] MEDS: PANTOprazole 40 MG TAB PO SCH (06:31)
[2022-01-02 07:10] LABS: INR 2.5 (0.9-1.1); Prothrombin Time 25.6 Seconds (9.0-12.0)
[2022-01-02 07:35] LABS: BUN Creatinine Ratio 22.6 (10-20); Calcium 9.7 mg/dl (8.5-10.1); Creatinine Clr Calc Pharmacy 148.2 ml/min; Est GFR (African American) 93.7 ml/min; Est GFR (Non-African American) 80.9 ml/min; Potassium 3.6 mmol/L (3.5-5.1)
[2022-01-02] MEDS ORDERED: ACETAMINOPHEN 1000 MG/100 ML IV IV PRN (08:27)
[2022-01-02] MEDS: FUROSEMIDE 40 MG/4 ML VIAL IV SCH (09:19)
[2022-01-02] MEDS: INSULIN ASPART PER UNIT SC SCH ×2 (09:26→12:21)
[2022-01-02] MEDS: INSULIN GLARGINE SOLOSTAR 100 UNITS/ML 3 ML PEN SC SCH (09:27)
[2022-01-02] MEDS: FLUTICASONE PROPIONATE NA SPR 16 GM BTL NAE SCH (09:30)
[2022-01-02] MEDS: ASPIRIN 81 MG ECTAB PO SCH (09:33)
[2022-01-02] MEDS: buprenorphine HCL 8 MG SUBL SL SCH (09:33)
[2022-01-02] MEDS: DULoxetine HCL 60 MG CAP PO SCH (09:34)
[2022-01-02] MEDS: GABAPENTIN 800 MG TAB PO SCH (09:34)
[2022-01-02] MEDS: FOLIC ACID 1 MG TAB PO SCH (09:34)
[2022-01-02] MEDS: guaiFENesin 600 MG TABCR PO SCH (09:34)
[2022-01-02] MEDS: ISOSORBIDE MONO EXTENDED REL 30 MG TABCR PO SCH (09:34)
[2022-01-02] MEDS: FAMOTIDINE 20 MG TAB PO SCH (09:34)
[2022-01-02] MEDS: DOCUSATE SODIUM/SENNA 50/8.6MG TAB PO SCH (09:34)
[2022-01-02] MEDS: METOPROLOL SUCC 25MG EXT REL TAB PO SCH (09:34)
[2022-01-02] MEDS: FERROUS SULFATE 325 MG TAB PO SCH (09:34)
[2022-01-02] MEDS: FINASTERIDE 5 MG TAB PO SCH (09:34)
[2022-01-02] MEDS: MAGNESIUM OXIDE 400 MG TAB PO SCH (09:34)
[2022-01-02] MEDS: TAMSULOSIN HCL 0.4 MG CAP PO SCH (09:35)
[2022-01-02] MEDS: POLYETHYLENE (MIRALAX) 17 GM PACK PO SCH (09:35)
[2022-01-02] MEDS: SPIRONOLACTONE 25 MG TAB PO SCH (09:35)
[2022-01-02] MEDS: NICOTINE 21 MG/24 HR TDSY TD SCH (09:35)
[2022-01-02] MEDS: POTASSIUM CHLORIDE CRTAB 20 MEQ TABCR PO SCH (09:35)
--- NOTE | 2022-01-02 10:45 | Hospitalist Progress Note ---
Date of Service January 02, 2022 Assessment & Plan (1) Acute on chronic heart failure with preserved ejection fraction: Plan: per Dr. Musa's notes with addendum: Pt is 49 y/o M with PMH DM II, HTN, H/O PE, on Coumadin, diastolic CHF, chronic back pain, COPD, urinary retention with chronic Lloyd that was recently removed after voiding trial, depression, anxiety, history of recurrent hospitalizations, h/o subdural hematoma, SAH, STEMI presented to ER with c/o BLE edema and 30 pound weight gain over past 2 weeks. Uses 4 L oxygen at bedtime. Home O2 sats reported 89 to 92%. Denies cough, fever, chest pain. In ER reported to be hypoxic, improved to 92% on 2 L via nasal cannula, remaining vitals WNL. Negative troponin. BNP: 62. Chest x-ray without acute findings. In ER given 40 mg Lasix IV Acute on chronic diastolic CHF Continue daily weight, strict I and Os, salt and fluid restriction- 1800cc. Echo from 07/2021: EF: 60-65%, mild tricuspid regurgitation Monitor renal function, electrolytes while on diuresis difficult to assess fluid status based on physical exam alone due to body habitus, but edema does appear to be improving with presence of wrinkles on hands/legs Patient unsure of his "dry weight" Overall he is net (-) 28L. Weight on presentation 214.1kg, current weight 201.5kg -At discharge, would recommend lasix 40mg PO BID (his home dose) and add metolazone 2.5mg MWF 01/02 diuresed well -26L fluid balance weight down from 213 to 201 crea stable continue lasix 40mg PO BID add Metolazone 2.5mg po // repeat BMP next Wed fluid restriction 2L daily low sodium diet Back pain, worsened -CT A/P 12/28 overnight unremarkable -UA negative -Patient reports worsening lower back pain with radiation down left leg. Will ask for Orthopedic surgery evaluation. 01/02 CT abd: degenerative changes in the spine Ortho: PT for now, if without improvement, consider outpatient injection or surgery mild, tolerable now outpatient PT BPH - his chronic Lloyd was removed on 12/03/2021. 01/02 no issues Continue tamsulosin, finasteride. History PE- On chronic Coumadin INR 2.5 - recommend coumadin m5 mwf, 2.5mg other days INR Wednesday MTM will be contacted to ff up patient COPD (chronic obstructive pulmonary disease): no exacerbation, no wheezes, continue home inhalers, nebs prn. 01/02 stable History obesity hypoventilation syndrome- Uses 4 L oxygen at bedtime and as needed -Would benefit from sleep study as OP DM type 2 (diabetes mellitus, type 2): A1c: 7.6 on 12/16/2021 resume home meds CAD- Denies current chest pain; Continue aspirin, atorvastatin, metoprolol succinate Chronic pain: Continue gabapentin, Suboxone. given iv tylenol bid prn for breakthrough pain. Morbid obesity: BMI: 64 recommend establishing care with bariatric surgery which patient is very motivated to do Constipation (+) large BM after enema, lactulose will benefit from daily laxative DVT Prophylaxis- On Coumadin Dispo- d/c home today ff up with PCP next week Coumadin clinic to call patient for advice plan of care discussed with patient in detail and at length all questions answered he is understanding, agreeable, comfortable with the plan of care Admission and Anticipated Discharge Date Admission Date: December 17, 2021 Subjective ff up for acute on chronic CHF, etc seen resting in bedside chair ALEXANDER De Paz at bedside comfortable on room air in good spirits states he feels better overall breathing is better no chest pain, dyspnea, palpitations, dizziness back pain tolerable no leg weakness, pain no other symptoms states he is ready for discharge today Review of Systems Review of Systems: all noted and negative except for above Physical Exam Physical Exam: General- oriented x 3, not in distress, speaks in sentences with no effort or accessory muscle use Eyes- anicteric Neck- no JVD Lungs- clear breath sounds bilaterally, no wheezing no crackles Heart- normal rate, regular rhythm; no murmurs Abdomen- normal bowel sounds, nondistended, soft, nontender Extremities- trace pretibial edema, no calf tenderness Neuro- alert, oriented x 3; no gross focal neurologic deficits Skin- warm & dry Results & Data Results & Data ([facility]) Vital Signs (Past 12 Hours) Vital Signs Temp Pulse Pulse Resp BP BP Pulse Ox 01/02/22 07:24 36.7 C 63 21 130/75 93 01/02/22 04:00 36.9 C 77 18 138/71 95 01/02/22 01:17 71 01/02/22 00:00 37.1 C 79 20 122/62 96 all noted and reviewed including below
[2022-01-02] MEDS: UMECLIDINIUM BROMIDE 62.5MCG/BLISTER 7 PUFFS/INHALER INH SCH (10:50)
--- NOTE | 2022-01-02 11:02 | Discharge Summary ---
Date of Service January 02, 2022 Admission HPI Per Admitting Provider Pt is 51 y/o M with PMH DM II, HTN, H/O PE, on Coumadin, diastolic CHF, chronic back pain, COPD, urinary retention with chronic Lloyd that was recently removed after voiding trial, depression, anxiety, history of recurrent hospitalizations, h/o subdural hematoma, SAH, STEMI presented to ER with c/o BLE edema and weight gain over past 2 weeks. Patient with recent hospitalization 11/26/2021-12/03/2021 for encephalopathy thought secondary to UTI versus Suboxone withdrawal. Prior to discharge patient's chronic Lloyd was discontinued after voiding trial. Patient reports that he has been voiding at home. Denies dysuria, hematuria. He is unsure if he has any urinary retention. Denies abdominal pain. Patient reports presents today as he has noticed increased bilateral lower extremity edema, leg seeping and gained close to 30 pounds. Does not he has had increased lower extremity erythema. Denies fevers. Patient reports chronic intermittent chest pain. Denies any current chest pain. He reports past couple days feels like he has been more short of breath. He uses 4 L oxygen at bedtime. States his oxygen saturations at home on room air have been 89 to 92%. Denies cough. He reports he has been following low sodium diet. Denies diaphoresis, N/V/D/C, BURNETTE, dizziness, syncope, vision changes, neck pain, palpitations, sore throat, choking, otalgia, rhinorrhea, abdominal pain, paresthesias, weakness, rashes. Admission Exam Per Admitting Provider General: no acute distress, obese Head: normocephalic, atraumatic Eyes: conjunctiva non-injected, anicteric ENT: normal inspection external ears, nose, mucous membranes moist Neck: supple, trachea midline Lungs: On 3L NC with sat 97%, able to speak in sentences, +diffuse scattered wheezing, no significant rales CV: RRR, no murmur, + pretibial edema Abd: normal BS, soft, non-tender Ext: no cyanosis, no calf tenderness, slight erythema without warmth bilateral lower extremities, BLE with chronic skin thickening, +edema Neuro: A&O x 3, no focal deficits noted, normal affect Skin: warm, dry; as above in extremities Principal Diagnosis ACUTE ON CHRONIC DIASTOLIC CHF EXACERBATION Discharge Exam General- oriented x 3, not in distress, speaks in sentences with no effort or accessory muscle use Eyes- anicteric Neck- no JVD Lungs- clear breath sounds bilaterally, no wheezing no crackles Heart- normal rate, regular rhythm; no murmurs Abdomen- normal bowel sounds, nondistended, soft, nontender Extremities- trace pretibial edema, no calf tenderness Neuro- alert, oriented x 3; no gross focal neurologic deficits Skin- warm & dry Discharge Data Allergies Allergy/AdvReac Type Severity Reaction Status Date / Time cefepime Allergy Intermediate rash Verified 12/17/21 16:52 daptomycin Allergy Intermediate rash Verified 12/17/21 16:52 fentanyl Allergy Intermediate RASH/HIVES/SKIN Verified 12/17/21 16:52 REDNESS naloxone AdvReac Severe extremely Verified 12/17/21 16:52 sick acetaminophen [From Tylenol] AdvReac Intermediate IRRITATES Verified 12/17/21 16:52 & UPSET STOMACH ibuprofen AdvReac Intermediate Nausea Verified 12/17/21 16:52 valproic acid AdvReac Intermediate PANCREATITS Verified 12/17/21 16:52 Consultations 12/17/21 18:56 ED Decision to Admit Stat 12/30/21 13:43 Consult Orthopedic Surgery Routine Ordered Studies 12/29/21 02:43 CT abd pelvis wo con Urgent Lung base: Minimal linear scarring is seen at the lung bases. The lung bases are otherwise clear. Abdominal cavity: There is no evidence for abdominal mass, adenopathy or ascites. Liver: The liver is homogeneous in attenuation on these limited noncontrast images.. Spleen: The spleen is homogeneous in attenuation on these limited noncontrast images. Pancreas: The pancreas is homogeneous in attenuation on these limited noncontrast images. Gall Bladder: The gallbladder is contracted due to the patient's nonfasting state. Adrenal glands: The adrenal glands are normal in size and attenuation on these limited noncontrast images. Kidneys: The kidneys are homogeneous in attenuation on these limited noncontrast images. There is no evidence for gross renal mass, calyceal calculus or hydronephrosis bilaterally. There is a 4 mm parenchymal calcification on the right. Bowel: There is a small hiatal hernia. The stomach is distended with liquid and food stuff. The bowel loops are normally placed within the abdomen and pelvis without evidence for dilatation or obstruction. There is no evidence for mass lesion. There is evidence for previous partial colonic resection with end-to-end anastomosis. There are no inflammatory changes present. There is no evidence for free air. The appendix is not visualized. Bladder: There is no evidence for focal bladder wall thickening, calculus or diverticulum. There is mild diffuse bladder wall thickening which can be seen with chronic bladder outlet obstruction. : There is no evidence for pelvic mass or adenopathy. Vasculature: There is no evidence for focal aneurysmal dilatation of the abdominal aorta. Osseous structures: There is no acute osseous pathology. Degenerative changes are seen within the spine. IMPRESSION: 1. No obstructing renal calculus or hydronephrosis bilaterally. 2. 4 mm parenchymal calcification on the right. 3. Mild diffuse thickening of bladder wall which is probably related to chronic bladder outlet obstruction. 4. Mild degenerative changes of the lumbar spine. 5. Otherwise, no acute intra-abdominal or pelvic abnormality on these limited noncontrast images. 6. Additional nonacute findings are delineated above. ACT 112: Negative or not required by law. Hospital Course (1) Acute on chronic heart failure with preserved ejection fraction: per Dr. Musa's notes with addendum: Pt is 49 y/o M with PMH DM II, HTN, H/O PE, on Coumadin, diastolic CHF, chronic back pain, COPD, urinary retention with chronic Lloyd that was recently removed after voiding trial, depression, anxiety, history of recurrent hospitalizations, h/o subdural hematoma, SAH, STEMI presented to ER with c/o BLE edema and 30 pound weight gain over past 2 weeks. Uses 4 L oxygen at bedtime. Home O2 sats reported 89 to 92%. Denies cough, fever, chest pain. In ER reported to be hypoxic, improved to 92% on 2 L via nasal cannula, remaining vitals WNL. Negative troponin. BNP: 62. Chest x-ray without acute findings. In ER given 40 mg Lasix IV Acute on chronic diastolic CHF given IV Lasix Echo from 07/2021: EF: 60-65%, mild tricuspid regurgitation diuresed well -26L fluid balance weight down from 213 to 201 crea stable continue lasix 40mg PO BID add Metolazone 2.5mg po // repeat BMP next Wed fluid restriction 2L daily low sodium diet Back pain, worsened -CT A/P 12/28 overnight unremarkable -UA negative -Patient reports worsening lower back pain with radiation down left leg. Will ask for Orthopedic surgery evaluation. 01/02 CT abd: degenerative changes in the spine Ortho: PT for now, if without improvement, consider outpatient injection or surgery mild, tolerable now outpatient PT BPH - his chronic Lloyd was removed on 12/03/2021. 01/02 no issues Continue tamsulosin, finasteride. History PE- On chronic Coumadin INR 2.5 - recommend coumadin m5 mwf, 2.5mg other days INR Wednesday MTM will be contacted to ff up patient COPD (chronic obstructive pulmonary disease): no exacerbation, no wheezes, continue home inhalers, nebs prn. 01/02 stable History obesity hypoventilation syndrome- Uses 4 L oxygen at bedtime and as needed -Would benefit from sleep study as OP DM type 2 (diabetes mellitus, type 2): A1c: 7.6 on 12/16/2021 resume home meds CAD- Denies current chest pain; Continue aspirin, atorvastatin, metoprolol succinate Chronic pain: Continue gabapentin, Suboxone. given iv tylenol bid prn for breakthrough pain. Morbid obesity: BMI: 64 recommend establishing care with bariatric surgery which patient is very motivated to do Constipation (+) large BM after enema, lactulose daily laxative Dispo- d/c home today ff up with PCP next week Coumadin clinic to call patient for advice plan of care discussed with patient in detail and at length all questions answered he is understanding, agreeable, comfortable with the plan of care Total Time Total Time Spent Total Time Spent (In Minutes): >30 minutes Discharge Plan Discharge Items Patient Disposition: Home - Self-Care Reason For Visit: ACUTE ON CHRONIC CHF Discharge Diagnosis: ACUTE ON CHRONIC DIASTOLIC HEART FAILURE EXACERBATION Activity: Resume your previous activity Driving/Machine Use: NO DRIVING UNTIL RE-EVALUATED AND ALLOWED BY PRIMARY CARE PHYSICIAN Non-emergency contact: Primary Care Provider Call non-emergency contact if: you have any medication questions, your symptoms worsen, your pain is not controlled, your pain is worsening, your pain is unusual for you, your pain is concerning for you and you have a fever Follow-up/Referrals: Sj Sauceda DO [Surgeon] - Roberto Askew MD [Primary Care Provider] - Diet: Carb Consistent or DM2, Heart Healthy and Low Sodium (2gm) Fluids: 2000ml (8 cups) Addtl Attending Provider Instructions: PLEASE REFER TO YOUR NEW MEDICATION LIST AND FOLLOW INSTRUCTIONS CAREFULLY. YOUR NEW MEDICATIONS INCLUDE: METOLAZONE - diuretic to prevent volume overload, CHF exacerbation CHANGE COUMADIN TO 5MG EVERY WEDNESDAY/WEDNESDAY/WEDNESDAY, AND 2.5MG ALL OTHER DAYS. TAKE A LAXATIVE DAILY. PLEASE CALL YOUR PRIMARY CARE PHYSICIAN OR RETURN TO THE ER IF WITH WORSENING OF SYMPTOMS, INCLUDING LEG SWELLING, SHORTNESS OF BREATH, CHEST PAIN. FOLLOW UP WITH PRIMARY CARE PHYSICIAN IN 1 WEEK. PLEASE CALL FOR AN APPOINTMENT. IT IS VERY IMPORTANT THAT YOU FOLLOW UP WITH THE PRIMARY CARE PHYSICIAN NEXT WEEK, AND REGULARLY SO YOUR MEDICAL CONDITION CAN BE MONITORED CAREFULLY AND TO ENSURE THAT YOU ARE RESPONDING APPROPRIATELY WITH THE NEW MEDICATION CHANGES. THE COUMADIN CLINIC WILL BE CALLING YOU ON WEDNESDAY FOR ADVICE REGARDING BLOODWORK AND COUMADIN DOSE. Pending Studies at Discharge: Yes Studies:: INR CHECK WEDNESDAY- 01/05 BASIC METABOLIC PROFILE (BLOODWORK) WEDNESDAY- 01/07 Stand-Alone Forms: My [facility] [employer], Smoking Cessation Medications and DC Order Prescriptions: New benzonatate 100 mg Capsule 100 mg PO TID PRN (Reason: cough) Qty: 10 RF: 0 metolazone 2.5 mg tablet 2.5 mg PO UD Qty: 12 RF: 1 Continued polyethylene glycol 3350 [Miralax] 17 gram powder in packet 17 g PO QAM RF: 0 nitroglycerin [Nitrostat] 0.4 mg tablet, sublingual 0.4 mg Sublingual DIRECTED PRN (Reason: CHEST PAIN) RF: 0 nystatin 100,000 unit/gram Powder 1 applic TOPICAL TID PRN (Reason: Skin Irritation) RF: 0 cyclobenzaprine 10 mg Tablet 10 mg PO BID PRN (Reason: Muscle Spasm) RF: 0 ipratropium-albuterol 0.5 mg-3 mg(2.5 mg base)/3 mL Solution For Nebulization 3 ml INHALATION Q6H PRN (Reason: Shortness Of Breath Or Wheezing) RF: 0 docusate sodium 100 mg Capsule 100 mg PO BID RF: 0 duloxetine 60 mg capsule,delayed release(DR/EC) 60 mg PO DAILY RF: 0 famotidine 20 mg tablet 20 mg PO DAILY RF: 0 fluticasone propionate 50 mcg/actuation spray,suspension 2 spray Intranasal DAILY RF: 0 aspirin [Ecotrin Low Strength] 81 mg tablet,delayed release (DR/EC) 81 mg PO QAM RF: 0 Spiriva with HandiHaler 18 mcg capsule, w/inhalation device 1 puff inhalation QAM RF: 0 finasteride 5 mg tablet 5 mg PO QAM RF: 0 tamsulosin [Flomax] 0.4 mg Capsule 0.4 mg PO QAM RF: 0 metoprolol succinate 50 mg Tablet Extended Release 24 Hr 75 mg PO BID RF: 0 spironolactone 25 mg Tablet 25 mg PO QAM RF: 0 atorvastatin 80 mg tablet 80 mg PO QPM RF: 0 sennosides [senna] 8.6 mg Tablet 8.6 mg PO DAILY PRN (Reason: Constipation) RF: 0 folic acid 1 mg Tablet 1 mg PO QAM RF: 0 furosemide [Lasix] 40 mg tablet 40 mg PO BID RF: 0 lorazepam 0.5 mg tablet 0.5 mg PO Q8 PRN (Reason: Anxiety) RF: 0 potassium chloride 20 mEq Tablet Extended Release 20 meq PO BID RF: 0 albuterol sulfate 90 mcg/actuation Hfa Aerosol Inhaler 2 puff INHALATION Q4 PRN (Reason: Dyspnea) RF: 0 omeprazole 20 mg Capsule,Delayed Release(Dr/Ec) 20 mg PO DAILYBB RF: 0 gabapentin 800 mg tablet 800 mg PO TID RF: 0 buprenorphine HCl 8 mg tablet, sublingual 8 mg SUBLINGUAL TID RF: 0 isosorbide mononitrate 30 mg Tablet Extended Release 24 Hr 30 mg PO DAILY RF: 0 glipizide 10 mg tablet 10 mg PO BID RF: 0 Lantus Solostar U-100 Insulin 100 unit/mL (3 mL) Insulin Pen 50 unit SC HS 30 Days Qty: 15 RF: 3 urea [Ureacin-20] 20 % Cream 1 applic TOPICAL BID RF: 0 magnesium oxide 400 mg (241.3 mg magnesium) tablet 400 mg PO DAILY RF: 0 ferrous sulfate 325 mg (65 mg iron) Tablet 325 mg PO QAM RF: 0 hydroxyzine HCl 25 mg Tablet 25 mg PO QID PRN (Reason: Anxiety) RF: 0 insulin aspart U-100 [Novolog Flexpen U-100 Insulin] 100 unit/mL (3 mL) Ins ulin Pen 1 unit SUBCUT TIDM RF: 0 acetaminophen [Tylenol Extra Strength] 500 mg Tablet 1,000 mg PO Q8H PRN (Reason: pain) Qty: 50 RF: 0 ondansetron HCl 4 mg Tablet 4 mg PO Q8H PRN (Reason: NAUSEA/VOMITING) RF: 0 warfarin 5 mg tablet 2.5 - 5 mg PO DIRECTED Qty: 0 RF: 0 Lactinex 1 million cell tablet,chewable 1 tab PO TID Qty: 30 RF: 0 Discharge Orders: Discharge Order (Routine); Ordered 01/02/22 Ordered By: Romulo Clark Admission Data Admit Date/Time: 12/17/21 19:12 Attending Provider: Romulo Clark Admit Provider: Dipesh Wright Primary Care Provider: Roberto Askew Other Providers: Dipesh Wright ; Billy Mills ; Sj Sauceda ; Ovidio Musa-[place] Other Interventions: Discharge Summary Assessment (RN) Last Done: 01/02/22 12:50
[2022-01-02] MEDS: buprenorphine HCL 2 MG SUBL SL SCH (12:27)
== END 2022-01-02 13:06 | disposition home or self-care (01) | DRG 291 ==
LOC: ED 14:47 → 2W 19:12 → SUATTDRO 19:12 → 2W 21:20

== ENCOUNTER 2022-02-19 11:30 | Inpatient (IN) ==
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
[2022-02-19 12:04] LABS: Basophils # (auto) 0.03 K/uL (0-0.2); Basophils % (auto) 0.2 %; Eosinophils # (auto) 0.47 K/uL (0-0.5); Eosinophils % (auto) 3.5 %; Hematocrit (blood only) 43.3 % (42-52); Hemoglobin 13.8 g/dL (14.0-18.0); Immature Granulocytes # (auto) 0.04 K/uL (0.00-0.02); Immature Granulocytes % (auto) 0.3 %; Lymphocytes # (auto) 2.37 K/uL (1.2-3.4); Lymphocytes % (auto) 17.9 %; Mean Corpuscular Hemoglobin 27.1 pg (25-34); Mean Corpuscular Hgb Conc 31.9 g/dL (32-36); Mean Corpuscular Volume 85.1 fL (80-100); Monocytes # (auto) 0.84 K/uL (0.11-0.59); Monocytes % (auto) 6.3 %; Neutrophils # (auto) 9.52 K/uL (1.4-6.5); Neutrophils % (auto) 71.8 %; Platelet Count 292 K/uL (130-400); RDW Coefficient of Variation 18.1 % (11.5-14.5); Red Blood Count 5.09 M/uL (4.7-6.1); White Blood Count 13.27 K/uL (4.8-10.8)
[2022-02-19 12:13] LABS: INR 1.6 (0.9-1.1); Partial Thromboplastin Ratio 1.3; Partial Thromboplastin Time 36.2 Seconds (21.0-31.0); Prothrombin Time 16.7 Seconds (9.0-12.0)
--- NOTE | 2022-02-19 12:32 | XRay Report ---
XR chest 1V portable CLINICAL HISTORY: Chest Pain. COMPARISON STUDY: 02/14/2022 TECHNIQUE: 1 view of the chest FINDINGS: Single frontal view of the chest demonstrates the cardiomediastinal silhouette to be within normal li mits. The lungs are clear of alveolar opacities. There is no evidence for pleural effusion. There is no evidence for vascular congestion. There is no acute osseous pathology. IMPRESSION: 1. No acute cardiopulmonary disease. ACT 112: Negative or not required by law. Electronically signed by: Sandip Chawla M.D. 02/19/2022 12:31 PM
[2022-02-19 12:34] LABS: Troponin I High Sensitivity 4.6 pg/ml (0-20)
[2022-02-19 12:37] LABS: Albumin Level 3.8 gm/dl (3.4-5.0); BUN Creatinine Ratio 10.6 (10-20); Bilirubin,Total 0.8 mg/dl (0.2-1.0); Calcium 9.4 mg/dl (8.5-10.1); Creatinine Clr Calc Pharmacy 177.9 ml/min; Est GFR (African American) 116.9 ml/min; Est GFR (Non-African American) 100.9 ml/min; Globulin 3.8 gm/dl (2.5-4.0); Potassium 3.7 mmol/L (3.5-5.1); Total Protein 7.6 gm/dl (6.0-8.3)
--- NOTE | 2022-02-19 14:30 | Communication Note ---
Date of Service: February 19, 2022 Patient was interviewed and examined at bedside with Ly [id number]. Chart reviewed. In summary, this is a 51 year old male with history of chronic diastolic CHF, COPD, active tobacco abuse, OHS, nocturnal hypoxemia on 4L NC presented to the ED today with multiple complaints. States he has not felt right for the past week and came to the ED few days back but was discharged from the ED. He states he does not feels safe to go home at this time. States he feels confused in the head, has some shortness of breath more with exertion, wheezing, chest discomfort, cough with sputum expectoration, weight gain of about 10 lbs over the past few days, constipated for about a week. He is not sure what medicine he is taking as his gives him all the medications. States he has some orthopnea and usually sleeps in a recliner. He is still smoking a pack a day. He says his usual weight is around 440 lbs. In the ED, he was afebrile and hemodynamically stable. His oxygen saturation was 92-94% on room air. He has chronic edema of his extremities along with some scabs. No asterixis. Chest auscultation with diffuse wheezes. Abd benign. Will admit for management of COPD exacerbation and mild CHF exacerbation. Will get ABG, BNP, sputum clx if able. Will continue steroids, nebs, doxy, IV lasix, daily weight, strict I and Os, fluid restriction, nicoderm patch, telemetry. Will give enema for his constipation. PT/OT eval. Strongly recommended to get sleep study as OP. Rest as per the note above.
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
[2022-02-19] MEDS: ALBUT/IPRATROP 3MG/0.5MG NEB 3 ML VIAL NEB SCH ×3 (14:44→23:43)
[2022-02-19 15:45] LABS: Base Excess ABG 8.5 mEq/L (-9-1.8); HCO3 ABG 35 mmol/L (19-24); Oxygen Saturation ABG 90.5 % (90-95); PCO2 ABG 53 mmHg (35-46); PO2 ABG 58 mmHg (80-95); pH ABG 7.43 (7.35-7.45)
[2022-02-19] MEDS ORDERED: buprenorphine HCL 8 MG SUBL SL ONE (15:45)
[2022-02-19] MEDS: NICOTINE 21 MG/24 HR TDSY TD SCH (15:53)
[2022-02-19 16:00] LABS: Allen Test POS (Pos)
--- NOTE | 2022-02-19 16:22 | Electrocardiogram Report ---
Test Reason : Blood Pressure : / mmHG Vent. Rate : 085 BPM Atrial Rate : 085 BPM P-R Int : 158 ms QRS Dur : 114 ms QT Int : 372 ms P-R-T Axes : 043 038 049 degrees QTc Int : 442 ms Normal sinus rhythm Incomplete right bundle branch block Normal ECG When compared with ECG of 14-FEB-2022 15:20, No significant change was found Confirmed by Da Browning ([id number]) on 02/19/2022 4:22:15 PM Referred By: REFERRED SELF Confirmed By:Da Browning
[2022-02-19 16:29] LABS: Appearance Urine Clear (Clear); Bacteria Urine Automated Negative (Negative); Bilirubin Urine Negative (Negative); Blood Urine Negative (Negative); Color Urine Yellow; Epithelial Cell Urine Auto >30 /lpf (0-5); Glucose Urine UA Negative (Negative); Ketones Urine Negative (Negative); Leukocyte Esterase Urine Trace (Negative); Nitrite Urine Negative (Negative); Protein Urine Negative (Negative); Specific Gravity Urine 1.013 (1.000-1.030); Urobilinogen Urine Negative (Negative); pH Urine 8.5 (4.5-7.5)
[2022-02-19 16:51] LABS: RBC Urine Automated 0-4 /hpf (0-4)
[2022-02-19] MEDS ORDERED: SODIUM CHLORIDE 0.65% NA SOLN 45 ML (OCEAN) ONE (16:54)
[2022-02-19] MEDS ORDERED: GLUCAGON FOR INJ 1 MG VIAL SQ PRN (17:31)
[2022-02-19] MEDS ORDERED: BENZONATATE 100 MG CAPSULE PO PRN (17:31)
[2022-02-19] MEDS ORDERED: ONDANSETRON INJ 2 MG/ML 2 ML VIAL IV PRN (17:31)
[2022-02-19] MEDS ORDERED: bisacodyL 10 MG SUPP PR PRN (17:31)
[2022-02-19] MEDS ORDERED: hydrOXYzine HCl 25 MG TAB PO PRN (17:31)
[2022-02-19] MEDS ORDERED: DEXTROSE 50% 50 ML SYRINGE IV PRN (17:31)
[2022-02-19] MEDS ORDERED: GLUCOSE 40% GEL 15 GM TUBE PO PRN (17:31)
[2022-02-19] MEDS ORDERED: SENNA 8.6 MG TAB PO PRN (17:31)
[2022-02-19] MEDS ORDERED: GLUCOSE 10 TABS/TUBE PO PRN (17:31)
[2022-02-19] MEDS ORDERED: CARBOHYDRATES FOR HYPOGLYCEMIA PO PRN (17:31)
[2022-02-19] MEDS ORDERED: ISOSORBIDE DINITRATE 10 MG TAB PO ONE (18:00)
[2022-02-19] MEDS: WARFARIN SOD 2.5 MG TAB PO SCH (18:31)
[2022-02-19] MEDS: FUROSEMIDE 40 MG/4 ML VIAL IV SCH (18:31)
[2022-02-19] MEDS: INSULIN ASPART PER UNIT SC SCH ×2 (19:35→21:57)
[2022-02-19] MEDS: DOXYCYCLINE HYCLATE 100 MG CAP PO SCH (20:20)
[2022-02-19] MEDS: LORazepam 0.5 MG TAB PO PRN (20:20)
[2022-02-19] MEDS: INSULIN GLARGINE SOLOSTAR 100 UNITS/ML 3 ML PEN SC SCH (21:59)
[2022-02-19] MEDS: METOPROLOL SUCC 25MG EXT REL TAB PO SCH (22:04)
[2022-02-19] MEDS: ATORVASTATIN 40 MG TAB PO SCH (22:05)
[2022-02-19] MEDS: DOCUSATE SODIUM 100 MG CAP PO SCH (22:07)
[2022-02-19] MEDS: GABAPENTIN 800 MG TAB PO SCH (22:08)
[2022-02-19] MEDS: POTASSIUM CHLORIDE CRTAB 20 MEQ TABCR PO SCH (22:09)
[2022-02-19] MEDS: methylPREDNISolone 40 MG in SYRINGE 0 ML IV SCH (22:10)
[2022-02-19] MEDS: LACTOBACILLUS ACIDOPHILUS 1 GM PACK PO SCH (22:12)
[2022-02-19] MEDS: ACETAMINOPHEN 1000 MG/100 ML IV IV PRN (22:37)
[2022-02-19] MEDS: buprenorphine HCL 8 MG SUBL SL SCH (22:37)
[2022-02-19] MEDS: guaiFENesin 600 MG TABCR PO SCH (23:07)
[2022-02-20] MEDS: ALBUT/IPRATROP 3MG/0.5MG NEB 3 ML VIAL NEB SCH (03:48)
[2022-02-20] MEDS: PANTOprazole 40 MG TAB PO SCH (06:08)
[2022-02-20] MEDS: DOXYCYCLINE HYCLATE 100 MG CAP PO SCH ×2 (06:08→17:45)
[2022-02-20] MEDS ORDERED: XOPENEX/ATROVENT 1.25mg/0.5MG NEB COMBO NEB SCH (07:00)
[2022-02-20] MEDS ORDERED: LEVALBUTEROL HCL 1.25 MG/3 ML NEB ONE (07:05)
[2022-02-20] MEDS: LEVALBUTEROL 1.25MG/0.5ML NEB INH SCH ×3 (07:12→20:01)
[2022-02-20] MEDS: IPRATROPIUM BROMIDE NEB SOLN 0.02% 2.5 ML VIAL INH SCH ×3 (07:12→20:01)
[2022-02-20 08:21] LABS: Hematocrit (blood only) 42.5 % (42-52); Hemoglobin 13.3 g/dL (14.0-18.0); Mean Corpuscular Hemoglobin 25.7 pg (25-34); Mean Corpuscular Hgb Conc 31.3 g/dL (32-36); Mean Platelet Volume 10.1 fL (7.4-10.4); Platelet Count 309 K/uL (130-400); RDW Coefficient of Variation 17.9 % (11.5-14.5); RDW Standard Deviation 53.3 fL (36.4-46.3); Red Blood Count 5.18 M/uL (4.7-6.1); White Blood Count 13.79 K/uL (4.8-10.8)
[2022-02-20 08:36] LABS: INR 1.5 (0.9-1.1); Prothrombin Time 15.6 Seconds (9.0-12.0)
[2022-02-20 08:59] LABS: Albumin Globulin Ratio 1.1 (0.9-2); Albumin Level 3.8 gm/dl (3.4-5.0); BUN Creatinine Ratio 17.3 (10-20); Bilirubin Direct 0.1 mg/dl (0-0.2); Bilirubin,Total 0.7 mg/dl (0.2-1.0); Calcium 9.6 mg/dl (8.5-10.1); Creatinine Clr Calc Pharmacy 201.7 ml/min; Est GFR (African American) 123.1 ml/min; Est GFR (Non-African American) 106.2 ml/min; Globulin 3.5 gm/dl (2.5-4.0); Magnesium 1.9 mg/dl (1.7-2.4); Total Protein 7.3 gm/dl (6.0-8.3)
[2022-02-20] MEDS ORDERED: FERROUS SULFATE 325 MG TAB PO SCH (09:00)
[2022-02-20] MEDS ORDERED: MAGNESIUM OXIDE 400 MG TAB PO SCH (09:00)
[2022-02-20] MEDS: GABAPENTIN 800 MG TAB PO SCH ×3 (09:36→22:02)
[2022-02-20] MEDS: metOLazone 2.5 MG TABLET PO SCH (09:36)
[2022-02-20] MEDS: METOPROLOL SUCC 25MG EXT REL TAB PO SCH ×2 (09:36→22:01)
[2022-02-20] MEDS: POTASSIUM CHLORIDE CRTAB 20 MEQ TABCR PO SCH ×2 (09:36→22:13)
[2022-02-20] MEDS: FOLIC ACID 1 MG TAB PO SCH (09:36)
[2022-02-20] MEDS: NICOTINE 21 MG/24 HR TDSY TD SCH (09:37)
[2022-02-20] MEDS: LACTOBACILLUS ACIDOPHILUS 1 GM PACK PO SCH ×3 (09:37→17:45)
[2022-02-20] MEDS: FINASTERIDE 5 MG TAB PO SCH (09:37)
[2022-02-20] MEDS: TAMSULOSIN HCL 0.4 MG CAP PO SCH (09:37)
[2022-02-20] MEDS: FUROSEMIDE 40 MG/4 ML VIAL IV SCH ×2 (09:37→17:45)
[2022-02-20] MEDS: ACETAMINOPHEN 1000 MG/100 ML IV IV PRN ×2 (09:37→21:51)
[2022-02-20] MEDS: DULoxetine HCL 60 MG CAP PO SCH (09:37)
[2022-02-20] MEDS: ASPIRIN 81 MG ECTAB PO SCH (09:37)
[2022-02-20] MEDS: DOCUSATE SODIUM 100 MG CAP PO SCH ×2 (09:37→21:59)
[2022-02-20] MEDS: POLYETHYLENE (MIRALAX) 17 GM PACK PO SCH (09:37)
[2022-02-20] MEDS: LORazepam 0.5 MG TAB PO PRN ×2 (09:37→21:52)
[2022-02-20] MEDS: FAMOTIDINE 20 MG TAB PO SCH (09:37)
[2022-02-20] MEDS: SPIRONOLACTONE 25 MG TAB PO SCH (09:37)
[2022-02-20] MEDS: guaiFENesin 600 MG TABCR PO SCH ×2 (09:37→22:03)
[2022-02-20] MEDS: buprenorphine HCL 8 MG SUBL SL SCH ×3 (09:50→21:52)
[2022-02-20] MEDS: INSULIN ASPART PER UNIT SC SCH ×4 (09:50→21:57)
[2022-02-20 10:05] LABS: D Dimer 210 ug/L FEU (0-500)
[2022-02-20] MEDS: ISOSORBIDE DINITRATE 10 MG TAB PO SCH (10:56)
[2022-02-20] MEDS: methylPREDNISolone 40 MG in SYRINGE 0 ML IV SCH ×2 (10:56→22:08)
[2022-02-20] MEDS: UMECLIDINIUM BROMIDE 62.5MCG/BLISTER 7 PUFFS/INHALER INH SCH (10:57)
[2022-02-20] MEDS: FLUTICASONE PROPIONATE NA SPR 16 GM BTL SCH (10:57)
[2022-02-20] MEDS: FERROUS SULFATE 325 MG TAB PO SCH (11:02)
[2022-02-20] MEDS: MAGNESIUM OXIDE 400 MG TAB PO SCH (11:02)
[2022-02-20 13:01] LABS: Estimated Average Glucose 143 mg/dl; Hemoglobin A1C 6.6 % (4.5-5.6)
--- NOTE | 2022-02-20 15:40 | Hospitalist Progress Note ---
Date of Service February 20, 2022 Assessment & Plan (1) Acute exacerbation of chronic obstructive pulmonary disease: Plan: Still with wheezing on exam Continue IV steroid, nebulizer treatment Counseled smoking cessation (2) Acute on chronic heart failure with preserved ejection fraction: Plan: Lasix 40mg IV BID Weight 189.5 Kg today (weight was 201Kg on prior admission) BNP not significantly elevated (3) Tobacco dependence due to cigarettes: Plan: -Nicotine patch ordered (4) 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: Plan: - ISS with accuchecks achs - Last A1C = 7.6 on 12/16/21 - Hold glipizide, continue lantus 50 U HS, allow HH/DM diet while here, fluid restriction as above for CHF exacerbation (5) Pulmonary embolism: Plan: - hx of such, on chronic anticoagulation; coumadin 5 mg //, 2.5 mg on all other days - INR is 1.6 today, but was therapeutic within the past 5 days upon outpt epic chart review - Follow daily INR -D dimer not elevated (6) Constipation: Plan: - Continue dulcolax po and pr as needed, pt has previously required lactulose enema. Last BM was 2 days ago DVT ppx: - teds, scds, continue Coumadin CODE: Full code Dispo: From home, return home when medically stable. Anticipated in next 48-72 hours Admission and Anticipated Discharge Date Admission Date: February 19, 2022 Subjective Feels better but still with wheezing and not back to baseline Physical Exam Physical Exam: Pleasant, comfortable, tearful at times Respiratory: +diffuse expiratory wheezing, no accessory muscle use Cardiovascular: regular rate and rhythm, no murmurs/rubs/gallops Gastrointestinal (Abdomen): soft, non tender Musculoskeletal: no significant leg swelling Skin: thickened nodular skin lower extremities, two small areas of skin tear Neurologic: awake, alert, spontaneously moving extremities Results & Data Results & Data ([facility]) Vital Signs (Past 12 Hours) Vital Signs Temp Pulse Resp BP Pulse Ox 02/20/22 14:42 36.7 C 79 18 121/67 91 02/20/22 13:03 76 18 92 02/20/22 10:54 36.5 C 79 18 154/78 H 96 02/20/22 07:24 36.7 C 81 20 145/74 H 97 02/20/22 07:13 78 18 95 Laboratory Results Short CBC 02/20/22 Range/Units 08:02 WBC 13.79 H (4.8-10.8) K/uL Hgb 13.3 L (14.0-18.0) g/dL Hct 42.5 (42-52) % Plt Count 309 (130-400) K/uL BMP 02/20/22 08:02 Sodium 135 L Potassium 4.0 Chloride 97 L Carbon Dioxide 33 H BUN 13 Creatinine 0.75 Glucose 166 H Calcium 9.6 Liver Function 02/20/22 Range/Units 08:02 Total Bilirubin 0.7 (0.2-1.0) mg/dl Direct Bilirubin 0.1 (0-0.2) mg/dl AST 12 L (13-39) U/L ALT 14 (7-52) U/L Alkaline Phosphatase 108 H (34-104) U/L Albumin 3.8 (3.4-5.0) gm/dl Urine 02/19/22 Range/Units 15:30 Urine Color Yellow Urine Appearance Clear (Clear) Urine pH 8.5 H (4.5-7.5) Ur Specific [place] 1.013 (1.000-1.030) Urine Protein Negative (Negative) Urine Glucose (UA) Negative (Negative) Medications Administered Current Inpatient Medications Acetaminophen (Acetaminophen 1000 Mg/100 Ml Iv) 1,000 mg IV BID PRN PRN Reason: pain Stop: 02/22/22 14:19 Last Admin: 02/20/22 09:37 Dose: 1,000 mg Documented by: Aspirin (Aspirin 81 Mg Ectab) 81 mg PO QAM [facility] Stop: 03/22/22 08:59 Last Admin: 02/20/22 09:37 Dose: 81 mg Documented by: Atorvastatin Calcium (Atorvastatin 40 Mg Tab) 80 mg PO QPM [facility] Stop: 03/21/22 20:59 Last Admin: 02/19/22 22:05 Dose: 80 mg Documented by: Benzonatate (Benzonatate 100 Mg Capsule) 100 mg PO TID PRN PRN Reason: cough Stop: 03/21/22 17:30 Bisacodyl (Bisacodyl 10 Mg Supp) 10 mg CA DAILY PRN PRN Reason: Constipation Stop: 03/21/22 17:30 Last Admin: 02/19/22 19:30 Dose: 10 mg Documented by: Buprenorphine HCl (Buprenorphine Hcl 8 Mg Subl) 8 mg SL TID [facility] Stop: 03/21/22 20:59 Last Admin: 02/20/22 13:10 Dose: 8 mg Documented by: Cyclobenzaprine HCl (Cyclobenzaprine Hcl 10 Mg Tab) 10 mg PO BID PRN PRN Reason: Muscle Spasm Stop: 03/21/22 17:30 Dextrose (Dextrose 50% 50 Ml Syringe) 25 - 50 ml IV UD PRN; Protocol PRN Reason: Hypoglycemia Protocol Stop: 03/21/22 17:30 Docusate Sodium (Docusate Sodium 100 Mg Cap) 100 mg PO BID [facility] Stop: 03/21/22 20:59 Last Admin: 02/20/22 09:37 Dose: 100 mg Documented by: Doxycycline Hyclate (Doxycycline Hyclate 100 Mg Cap) 100 mg PO Q12H [facility] Stop: 02/26/22 18:59 Last Admin: 02/20/22 06:08 Dose: 100 mg Documented by: Duloxetine HCl (Duloxetine Hcl 60 Mg Cap) 60 mg PO DAILY [facility] Stop: 03/22/22 08:59 Last Admin: 02/20/22 09:37 Dose: 60 mg Documented by: Famotidine (Famotidine 20 Mg Tab) 20 mg PO DAILY [facility] Stop: 03/22/22 08:59 Last Admin: 02/20/22 09:37 Dose: 20 mg Documented by: Ferrous Sulfate (Ferrous Sulfate 325 Mg Tab) 325 mg PO DAILY@1100 [facility] Stop: 03/22/22 08:59 Last Admin: 02/20/22 11:02 Dose: 325 mg Documented by: Finasteride (Finasteride 5 Mg Tab) 5 mg PO QAM [facility] Stop: 03/22/22 08:59 Last Admin: 02/20/22 09:37 Dose: 5 mg Documented by: Fluticasone Propionate (Fluticasone Propionate Na Spr 16 Gm Btl) 2 sprays NA DAILY [facility] Stop: 03/22/22 08:59 Last Admin: 02/20/22 10:57 Dose: 2 sprays Documented by: Folic Acid (Folic Acid 1 Mg Tab) 1 mg PO QAM [facility] Stop: 03/22/22 08:59 Last Admin: 02/20/22 09:36 Dose: 1 mg Documented by: Furosemide (Furosemide 40 Mg/4 Ml Vial) 40 mg IV BID17 [facility] Stop: 03/21/22 16:59 Last Admin: 02/20/22 09:37 Dose: 40 mg Documented by: Gabapentin (Gabapentin 800 Mg Tab) 800 mg PO TID [facility] Stop: 03/21/22 20:59 Last Admin: 02/20/22 13:10 Dose: 800 mg Documented by: Glucagon (Glucagon For Inj 1 Mg Vial) 1 mg SQ UD PRN; Protocol PRN Reason: Hypoglycemia Protocol Stop: 03/21/22 17:30 Glucose (Glucose 10 Tabs/Tube) 4 - 8 tabs PO UD PRN; Protocol PRN Reason: Hypoglycemia Protocol Stop: 03/21/22 17:30 Glucose (Glucose 40% Gel 15 Gm Tube) 15 - 30 gm PO UD PRN; Protocol PRN Reason: Hypoglycemia Protocol Stop: 03/21/22 17:30 Guaifenesin (Guaifenesin 600 Mg Tabcr) 1,200 mg PO Q12 [facility] Stop: 03/21/22 20:59 Last Admin: 02/20/22 09:37 Dose: 1,200 mg Documented by: Hydroxyzine HCl (Hydroxyzine Hcl 25 Mg Tab) 25 mg PO QID PRN PRN Reason: Anxiety Stop: 03/21/22 17:30 Methylprednisolone 40 mg/ (Syringe) 0.64 mls @ 1.5 mls/min IV BID [facility] Stop: 03/21/22 20:59 Last Admin: 02/20/22 10:56 Dose: 1.5 mls/min Documented by: Insulin Aspart (Insulin Aspart Per Unit) 0 units SC ACHS [facility] Stop: 03/21/22 17:30 Last Admin: 02/20/22 13:10 Dose: 20 units Documented by: Insulin Glargine (Insulin Glargine Solostar 100 Units/Ml 3 Ml Pen) 50 units SC HS [facility] Stop: 03/21/22 20:59 Last Admin: 02/19/22 21:59 Dose: 50 units Documented by: Ipratropium [place] (Ipratropium [place] Neb Soln 0.02% 2.5 Ml Vial) 0.5 mg INH Q6R [facility] Stop: 03/22/22 06:59 Last Admin: 02/20/22 13:03 Dose: 0.5 mg Documented by: Isosorbide Dinitrate (Isosorbide Dinitrate 10 Mg Tab) 30 mg PO DAILY [facility] Stop: 03/22/22 08:59 Last Admin: 02/20/22 10:56 Dose: 30 mg Documented by: Lactobacillus Acidophilus (Lactobacillus Acidophilus 1 Gm Pack) 1 gm PO TIDM [facility] Stop: 03/21/22 20:59 Last Admin: 02/20/22 13:10 Dose: 1 gm Documented by: Levalbuterol HCl (Levalbuterol 1.25mg/0.5ml Neb) 1.25 mg INH Q6R [facility] Stop: 03/22/22 06:59 Last Admin: 02/20/22 13:03 Dose: 1.25 mg Documented by: Lorazepam (Lorazepam 0.5 Mg Tab) 0.5 mg PO TID PRN PRN Reason: Anxiety Stop: 03/21/22 19:41 Last Admin: 02/20/22 09:37 Dose: 0.5 mg Documented by: Magnesium Oxide (Magnesium Oxide 400 Mg Tab) 400 mg PO DAILY@1100 [facility] Stop: 03/22/22 08:59 Last Admin: 02/20/22 11:02 Dose: 400 mg Documented by: Metolazone (Metolazone 2.5 Mg Tablet) 2.5 mg PO MoWeFr@0900 [facility] Stop: 03/22/22 08:59 Last Admin: 02/20/22 09:36 Dose: 2.5 mg Documented by: Metoprolol Succinate (Metoprolol Succ 25mg Ext Rel Tab) 75 mg PO BID [facility] Stop: 03/21/22 20:59 Last Admin: 02/20/22 09:36 Dose: 75 mg Documented by: Miscellaneous (Remove Nicoderm Patch) 1 ea N/A DAILY@0859 [facility] Stop: 03/22/22 08:58 Last Admin: 02/20/22 09:38 Dose: 1 ea Documented by: Miscellaneous (Carbohydrates For Hypoglycemia ) 15 - 30 gm PO UD PRN PRN Reason: Hypoglycemia Protocol Stop: 03/21/22 17:30 Nicotine (Nicotine 21 Mg/24 Hr Tdsy) 21 mg TD QAM [facility] Stop: 03/21/22 14:59 Last Admin: 02/20/22 09:37 Dose: 21 mg Documented by: Ondansetron HCl (Ondansetron Inj 2 Mg/Ml 2 Ml Vial) 4 mg IV Q4H PRN PRN Reason: Nausea And Vomiting Stop: 03/21/22 17:30 Pantoprazole Sodium (Pantoprazole 40 Mg Tab) 40 mg PO DAILYBB [facility] Stop: 03/22/22 06:29 Last Admin: 02/20/22 06:08 Dose: 40 mg Documented by: Polyethylene Glycol (Polyethylene (Miralax) 17 Gm Pack) 17 gm PO QAM [facility] Stop: 03/22/22 08:59 Last Admin: 02/20/22 09:37 Dose: 17 gm Documented by: Potassium Chloride (Potassium Chloride Crtab 20 Meq Tabcr) 20 meq PO BID [facility] Stop: 03/21/22 20:59 Last Admin: 02/20/22 09:36 Dose: 20 meq Documented by: Sennosides (Senna 8.6 Mg Tab) 8.6 mg PO DAILY PRN PRN Reason: Constipation Stop: 03/21/22 17:30 Last Admin: 02/19/22 19:29 Dose: 8.6 mg Documented by: Spironolactone (Spironolactone 25 Mg Tab) 25 mg PO [facility] Stop: 03/22/22 08:59 Last Admin: 02/20/22 09:37 Dose: 25 mg Documented by: Tamsulosin HCl (Tamsulosin Hcl 0.4 Mg Cap) 0.4 mg PO [facility] Stop: 03/22/22 08:59 Last Admin: 02/20/22 09:37 Dose: 0.4 mg Documented by: Umeclidinium [place] (Umeclidinium [place] 62.5mcg/Blister 7 Puffs/Inhaler) 1 puffs INH [facility] Stop: 03/22/22 08:59 Last Admin: 02/20/22 10:57 Dose: 1 puffs Documented by: Warfarin Sodium (Warfarin Sod 2.5 Mg Tab) 2.5 mg PO SuTuThSa@1600 [facility] Stop: 03/21/22 17:59 Last Admin: 02/19/22 18:31 Dose: 2.5 mg Documented by: Warfarin Sodium (Warfarin Sod 5 Mg Tab) 5 mg PO MoWeFr@1600 [facility] Stop: 03/22/22 15:59 Warfarin Sodium (Warfarin Sod 2.5 Mg Tab) 2.5 mg PO DAILY@1600 [facility] Stop: 02/20/22 16:01 (1) Pulmonary embolism Pulmonary embolism type: unspecified Chronicity: chronic Acute cor pulmonale presence: without acute cor pulmonale Qualified Code(s): I27.82 - Chronic pulmonary embolism
[2022-02-20] MEDS: WARFARIN SOD 2.5 MG TAB PO SCH (15:51)
[2022-02-20] MEDS: WARFARIN SOD 5 MG TAB PO SCH (15:51)
[2022-02-20] MEDS ORDERED: WARFARIN SOD 2.5 MG TAB PO SCH (16:00)
[2022-02-20] MEDS: FORMOTEROL 20 MCG/2 ML VIAL NEB SCH (20:01)
[2022-02-20] MEDS: BUDESONIDE 0.5 MG/2 ML VIAL (PULMICORT) NEB SCH (20:01)
[2022-02-20] MEDS: INSULIN GLARGINE SOLOSTAR 100 UNITS/ML 3 ML PEN SC SCH (21:58)
[2022-02-20] MEDS: ATORVASTATIN 40 MG TAB PO SCH (22:04)
[2022-02-21] MEDS: LEVALBUTEROL 1.25MG/0.5ML NEB INH SCH ×4 (00:04→19:49)
[2022-02-21] MEDS: IPRATROPIUM BROMIDE NEB SOLN 0.02% 2.5 ML VIAL INH SCH ×4 (00:04→19:48)
[2022-02-21] MEDS: PANTOprazole 40 MG TAB PO SCH (06:28)
[2022-02-21 06:42] LABS: Hematocrit (blood only) 44.8 % (42-52); Hemoglobin 14.7 g/dL (14.0-18.0); Mean Corpuscular Hemoglobin 27.4 pg (25-34); Mean Corpuscular Hgb Conc 32.8 g/dL (32-36); Mean Corpuscular Volume 83.4 fL (80-100); Mean Platelet Volume 10.3 fL (7.4-10.4); Platelet Count 318 K/uL (130-400); RDW Coefficient of Variation 18.1 % (11.5-14.5); RDW Standard Deviation 55.8 fL (36.4-46.3); Red Blood Count 5.37 M/uL (4.7-6.1); White Blood Count 16.55 K/uL (4.8-10.8)
[2022-02-21 06:53] LABS: INR 1.7 (0.9-1.1); Prothrombin Time 17.4 Seconds (9.0-12.0)
[2022-02-21 07:03] LABS: Albumin Globulin Ratio 1.1 (0.9-2); Albumin Level 4.1 gm/dl (3.4-5.0); BUN Creatinine Ratio 21.5 (10-20); Bilirubin,Total 0.5 mg/dl (0.2-1.0); Calcium 10.7 mg/dl (8.5-10.1); Creatinine Clr Calc Pharmacy 164.8 ml/min; Est GFR (African American) 109.8 ml/min; Est GFR (Non-African American) 94.7 ml/min; Globulin 3.7 gm/dl (2.5-4.0); Potassium 3.9 mmol/L (3.5-5.1); Total Protein 7.8 gm/dl (6.0-8.3)
[2022-02-21] MEDS: FORMOTEROL 20 MCG/2 ML VIAL NEB SCH ×2 (07:16→19:49)
[2022-02-21] MEDS: BUDESONIDE 0.5 MG/2 ML VIAL (PULMICORT) NEB SCH ×2 (07:16→19:48)
[2022-02-21] MEDS: FLUTICASONE PROPIONATE NA SPR 16 GM BTL SCH (08:12)
[2022-02-21] MEDS: ASPIRIN 81 MG ECTAB PO SCH (08:13)
[2022-02-21] MEDS: SPIRONOLACTONE 25 MG TAB PO SCH (08:13)
[2022-02-21] MEDS: TAMSULOSIN HCL 0.4 MG CAP PO SCH (08:13)
[2022-02-21] MEDS: ISOSORBIDE DINITRATE 10 MG TAB PO SCH (08:13)
[2022-02-21] MEDS: DULoxetine HCL 60 MG CAP PO SCH (08:13)
[2022-02-21] MEDS: FOLIC ACID 1 MG TAB PO SCH (08:13)
[2022-02-21] MEDS: LACTOBACILLUS ACIDOPHILUS 1 GM PACK PO SCH ×3 (08:13→15:20)
[2022-02-21] MEDS: FUROSEMIDE 40 MG/4 ML VIAL IV SCH ×2 (08:14→15:20)
[2022-02-21] MEDS: FINASTERIDE 5 MG TAB PO SCH (08:14)
[2022-02-21] MEDS: FAMOTIDINE 20 MG TAB PO SCH (08:14)
[2022-02-21] MEDS: FERROUS SULFATE 325 MG TAB PO SCH (08:14)
[2022-02-21] MEDS: MAGNESIUM OXIDE 400 MG TAB PO SCH (08:14)
[2022-02-21] MEDS: METOPROLOL SUCC 25MG EXT REL TAB PO SCH ×2 (08:15→21:07)
[2022-02-21] MEDS: GABAPENTIN 800 MG TAB PO SCH ×3 (08:15→21:09)
[2022-02-21] MEDS: DOXYCYCLINE HYCLATE 100 MG CAP PO SCH ×2 (08:15→21:03)
[2022-02-21] MEDS: methylPREDNISolone 40 MG in SYRINGE 0 ML IV SCH ×2 (08:15→21:00)
[2022-02-21] MEDS: guaiFENesin 600 MG TABCR PO SCH ×2 (08:15→21:06)
[2022-02-21] MEDS: POLYETHYLENE (MIRALAX) 17 GM PACK PO SCH ×2 (08:16→21:02)
[2022-02-21] MEDS: LORazepam 0.5 MG TAB PO PRN ×3 (08:23→21:32)
[2022-02-21] MEDS: POTASSIUM CHLORIDE CRTAB 20 MEQ TABCR PO SCH ×2 (08:23→21:31)
[2022-02-21] MEDS: UMECLIDINIUM BROMIDE 62.5MCG/BLISTER 7 PUFFS/INHALER INH SCH (08:23)
[2022-02-21] MEDS: buprenorphine HCL 8 MG SUBL SL SCH ×3 (08:23→21:00)
[2022-02-21] MEDS: DOCUSATE SODIUM 100 MG CAP PO SCH ×2 (08:32→21:11)
[2022-02-21] MEDS: NICOTINE 21 MG/24 HR TDSY TD SCH (08:34)
[2022-02-21] MEDS: ACETAMINOPHEN 1000 MG/100 ML IV IV PRN ×2 (08:34→21:32)
[2022-02-21] MEDS: INSULIN ASPART PER UNIT SC SCH ×4 (09:03→21:08)
--- NOTE | 2022-02-21 11:14 | Hospitalist Progress Note ---
Date of Service February 21, 2022 Assessment & Plan (1) Acute exacerbation of chronic obstructive pulmonary disease: Plan: Improved wheezing continue IV solumedrol, nebulizers Counseled smoking cessation (2) Acute on chronic heart failure with preserved ejection fraction: Plan: BNP not significantly elevated Difficult to assess fluid balance based on exam due to patient's body habitus Weight is lower than his last dry weight continue lasix 40mg IV BID while here, can loosen fluid restriction to 2L daily (3) Tobacco dependence due to cigarettes: Plan: -Nicotine patch ordered (4) 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: Plan: - ISS with accuchecks achs - Last A1C = 7.6 on 12/16/21 - Hold glipizide, continue lantus 50 U HS, allow HH/DM diet while here, fluid restriction as above for CHF exacerbation (5) Pulmonary embolism: Plan: - hx of such, on chronic anticoagulation; coumadin 5 mg //, 2.5 mg on all other days - INR is 1.7 today, received extra 2.5mg yesterday (total 7.5mg 02/20), will give another extra 2.5mg today (total 5mg) -D dimer not elevated -Repeat INR tomorrow (6) Constipation: Plan: - Miralax increase to BID, daily dulcolax RI until BM -patient reports no BM in over 1 week -will obtain abdominal X ray DVT ppx: - teds, scds, continue Coumadin CODE: Full code Dispo: From home, return home when medically stable. Anticipated in next 48-72 hours Admission and Anticipated Discharge Date Admission Date: February 19, 2022 Subjective Patient feels dehydrated, requesting his fluid restriction be loosened to 2000mL (he restricts himself to 2200mL at home) Reports constipation, no BM in over 1 week despite daily miralax and dulcolax and enema on Reports urinary incontinence and difficulty initiation urine stream. Requesting Urology consultation Breathing slightly improved, wheezing improved Physical Exam Physical Exam: Morbidly obese, pleasant, no acute distress Respiratory: +improved expiratory wheezing, airflow moderate Cardiovascular: regular rate and rhythm, no murmurs/rubs/gallops Gastrointestinal (Abdomen): Hypoactive, soft, obese Skin: bilateral lower extremity skin wrinkled, small areas of skin tear on bilateral tibial region Neurologic: awake, alert, spontaneously moving extremities, ambulating to rest room independently Results & Data Results & Data ([facility]) Vital Signs (Past 12 Hours) Vital Signs Temp Pulse Pulse Pulse Resp BP Pulse Ox 02/21/22 07:51 36.4 C L 69 20 144/76 H 99 02/21/22 07:30 61 18 98 02/21/22 03:00 36.5 C 68 22 149/83 H 97 02/20/22 23:34 70 98 Laboratory Results Short CBC 02/21/22 Range/Units 06:18 WBC 16.55 H (4.8-10.8) K/uL Hgb 14.7 (14.0-18.0) g/dL Hct 44.8 (42-52) % Plt Count 318 (130-400) K/uL BMP 02/21/22 06:18 Sodium 139 Potassium 3.9 Chloride 99 Carbon Dioxide 34 H BUN 20 Creatinine 0.93 Glucose 148 H Calcium 10.7 H Liver Function 02/21/22 Range/Units 06:18 Total Bilirubin 0.5 (0.2-1.0) mg/dl AST 14 (13-39) U/L ALT 13 (7-52) U/L Alkaline Phosphatase 102 (34-104) U/L Albumin 4.1 (3.4-5.0) gm/dl Medications Administered Current Inpatient Medications Acetaminophen (Acetaminophen 1000 Mg/100 Ml Iv) 1,000 mg IV BID PRN PRN Reason: pain Stop: 02/22/22 14:19 Last Admin: 02/21/22 08:34 Dose: 1,000 mg Documented by: Aspirin (Aspirin 81 Mg Ectab) 81 mg PO QAM [facility] Stop: 03/22/22 08:59 Last Admin: 02/21/22 08:13 Dose: 81 mg Documented by: Atorvastatin Calcium (Atorvastatin 40 Mg Tab) 80 mg PO QPM [facility] Stop: 03/21/22 20:59 Last Admin: 02/20/22 22:04 Dose: 80 mg Documented by: Benzonatate (Benzonatate 100 Mg Capsule) 100 mg PO TID PRN PRN Reason: cough Stop: 03/21/22 17:30 Last Admin: 02/20/22 15:52 Dose: 100 mg Documented by: Bisacodyl (Bisacodyl 10 Mg Supp) 10 mg RI DAILY PRN PRN Reason: Constipation Stop: 03/21/22 17:30 Last Admin: 02/19/22 19:30 Dose: 10 mg Documented by: Budesonide (Budesonide 0.5 Mg/2 Ml Vial (Pulmicort)) 0.5 mg NEB BIDR [facility] Stop: 03/22/22 18:59 Last Admin: 02/21/22 07:16 Dose: 0.5 mg Documented by: Buprenorphine HCl (Buprenorphine Hcl 8 Mg Subl) 8 mg SL TID [facility] Stop: 03/21/22 20:59 Last Admin: 02/21/22 08:23 Dose: 8 mg Documented by: Cyclobenzaprine HCl (Cyclobenzaprine Hcl 10 Mg Tab) 10 mg PO BID PRN PRN Reason: Muscle Spasm Stop: 03/21/22 17:30 Dextrose (Dextrose 50% 50 Ml Syringe) 25 - 50 ml IV UD PRN; Protocol PRN Reason: Hypoglycemia Protocol Stop: 03/21/22 17:30 Docusate Sodium (Docusate Sodium 100 Mg Cap) 100 mg PO BID [facility] Stop: 03/21/22 20:59 Last Admin: 02/21/22 08:32 Dose: 100 mg Documented by: Doxycycline Hyclate (Doxycycline Hyclate 100 Mg Cap) 100 mg PO Q12H [facility] Stop: 02/26/22 18:59 Last Admin: 02/21/22 08:15 Dose: 100 mg Documented by: Duloxetine HCl (Duloxetine Hcl 60 Mg Cap) 60 mg PO DAILY [facility] Stop: 03/22/22 08:59 Last Admin: 02/21/22 08:13 Dose: 60 mg Documented by: Famotidine (Famotidine 20 Mg Tab) 20 mg PO DAILY [facility] Stop: 03/22/22 08:59 Last Admin: 02/21/22 08:14 Dose: 20 mg Documented by: Ferrous Sulfate (Ferrous Sulfate 325 Mg Tab) 325 mg PO DAILY@1100 [facility] Stop: 03/22/22 08:59 Last Admin: 02/21/22 08:14 Dose: 325 mg Documented by: Finasteride (Finasteride 5 Mg Tab) 5 mg PO QAM [facility] Stop: 03/22/22 08:59 Last Admin: 02/21/22 08:14 Dose: 5 mg Documented by: Fluticasone Propionate (Fluticasone Propionate Na Spr 16 Gm Btl) 2 sprays NA DAILY [facility] Stop: 03/22/22 08:59 Last Admin: 02/21/22 08:12 Dose: 2 sprays Documented by: Folic Acid (Folic Acid 1 Mg Tab) 1 mg PO QAM [facility] Stop: 03/22/22 08:59 Last Admin: 02/21/22 08:13 Dose: 1 mg Documented by: Formoterol Fumarate (Formoterol 20 Mcg/2 Ml Vial) 20 mcg NEB BID [facility] Stop: 03/22/22 20:59 Last Admin: 02/21/22 07:16 Dose: 20 mcg Documented by: Furosemide (Furosemide 40 Mg/4 Ml Vial) 40 mg IV BID17 [facility] Stop: 03/21/22 16:59 Last Admin: 02/21/22 08:14 Dose: 40 mg Documented by: Gabapentin (Gabapentin 800 Mg Tab) 800 mg PO TID [facility] Stop: 03/21/22 20:59 Last Admin: 02/21/22 08:15 Dose: 800 mg Documented by: Glucagon (Glucagon For Inj 1 Mg Vial) 1 mg SQ UD PRN; Protocol PRN Reason: Hypoglycemia Protocol Stop: 03/21/22 17:30 Glucose (Glucose 10 Tabs/Tube) 4 - 8 tabs PO UD PRN; Protocol PRN Reason: Hypoglycemia Protocol Stop: 03/21/22 17:30 Glucose (Glucose 40% Gel 15 Gm Tube) 15 - 30 gm PO UD PRN; Protocol PRN Reason: Hypoglycemia Protocol Stop: 03/21/22 17:30 Guaifenesin (Guaifenesin 600 Mg Tabcr) 1,200 mg PO Q12 [facility] Stop: 03/21/22 20:59 Last Admin: 02/21/22 08:15 Dose: 1,200 mg Documented by: Hydroxyzine HCl (Hydroxyzine Hcl 25 Mg Tab) 25 mg PO QID PRN PRN Reason: Anxiety Stop: 03/21/22 17:30 Last Admin: 02/20/22 15:53 Dose: 25 mg Documented by: Methylprednisolone 40 mg/ (Syringe) 0.64 mls @ 1.5 mls/min IV BID [facility] Stop: 03/21/22 20:59 Last Admin: 02/21/22 08:15 Dose: 1.5 mls/min Documented by: Insulin Aspart (Insulin Aspart Per Unit) 0 units SC ACHS [facility] Stop: 03/21/22 17:30 Last Admin: 02/21/22 09:03 Dose: 10 units Documented by: Insulin Glargine (Insulin Glargine Solostar 100 Units/Ml 3 Ml Pen) 50 units SC HS [facility] Stop: 03/21/22 20:59 Last Admin: 02/20/22 21:58 Dose: 50 units Documented by: Ipratropium [place] (Ipratropium [place] Neb Soln 0.02% 2.5 Ml Vial) 0.5 mg INH Q6R [facility] Stop: 03/22/22 06:59 Last Admin: 02/21/22 07:16 Dose: Not Given Documented by: Isosorbide Dinitrate (Isosorbide Dinitrate 10 Mg Tab) 30 mg PO DAILY [facility] Stop: 03/22/22 08:59 Last Admin: 02/21/22 08:13 Dose: 30 mg Documented by: Lactobacillus Acidophilus (Lactobacillus Acidophilus 1 Gm Pack) 1 gm PO TIDM [facility] Stop: 03/21/22 20:59 Last Admin: 02/21/22 08:37 Dose: 1 gm Documented by: Levalbuterol HCl (Levalbuterol 1.25mg/0.5ml Neb) 1.25 mg INH Q6R [facility] Stop: 03/22/22 06:59 Last Admin: 02/21/22 07:17 Dose: Not Given Documented by: Lorazepam (Lorazepam 0.5 Mg Tab) 0.5 mg PO TID PRN PRN Reason: Anxiety Stop: 03/21/22 19:41 Last Admin: 02/21/22 08:23 Dose: 0.5 mg Documented by: Magnesium Oxide (Magnesium Oxide 400 Mg Tab) 400 mg PO DAILY@1100 [facility] Stop: 03/22/22 08:59 Last Admin: 02/21/22 08:14 Dose: 400 mg Documented by: Metolazone (Metolazone 2.5 Mg Tablet) 2.5 mg PO MoWeFr@0900 [facility] Stop: 03/22/22 08:59 Last Admin: 02/20/22 09:36 Dose: 2.5 mg Documented by: Metoprolol Succinate (Metoprolol Succ 25mg Ext Rel Tab) 75 mg PO BID [facility] Stop: 03/21/22 20:59 Last Admin: 02/21/22 08:15 Dose: 75 mg Documented by: Miscellaneous (Remove Nicoderm Patch) 1 ea N/A DAILY@59 [facility] Stop: 03/22/22 08:58 Last Admin: 02/21/22 08:34 Dose: 1 ea Documented by: Miscellaneous (Carbohydrates For Hypoglycemia ) 15 - 30 gm PO UD PRN PRN Reason: Hypoglycemia Protocol Stop: 03/21/22 17:30 Nicotine (Nicotine 21 Mg/24 Hr Tdsy) 21 mg TD QAM [facility] Stop: 03/21/22 14:59 Last Admin: 02/21/22 08:34 Dose: 21 mg Documented by: Ondansetron HCl (Ondansetron Inj 2 Mg/Ml 2 Ml Vial) 4 mg IV Q4H PRN PRN Reason: Nausea And Vomiting Stop: 03/21/22 17:30 Pantoprazole Sodium (Pantoprazole 40 Mg Tab) 40 mg PO DAILYBB [facility] Stop: 03/22/22 06:29 Last Admin: 02/21/22 06:28 Dose: 40 mg Documented by: Polyethylene Glycol (Polyethylene (Miralax) 17 Gm Pack) 17 gm PO BID [facility] Stop: 03/23/22 20:59 Potassium Chloride (Potassium Chloride Crtab 20 Meq Tabcr) 20 meq PO BID [facility] Stop: 03/21/22 20:59 Last Admin: 02/21/22 08:23 Dose: 20 meq Documented by: Sennosides (Senna 8.6 Mg Tab) 8.6 mg PO DAILY PRN PRN Reason: Constipation Stop: 03/21/22 17:30 Last Admin: 02/19/22 19:29 Dose: 8.6 mg Documented by: Spironolactone (Spironolactone 25 Mg Tab) [facility] [facility] [place]: 03/22/22 08:59 Last Admin: 02/21/22 08:13 Dose: 25 mg Documented by: Tamsulosin HCl (Tamsulosin Hcl 0.4 Mg Cap) 0.4 [facility] [place] [facility] [place] Stop: 03/22/22 08:59 Last Admin: 02/21/22 08:13 Dose: 0.4 mg Documented by: Umeclidinium [place] (Umeclidinium [place] 62.5mcg/Blister 7 Puffs/Inhaler) 1 puffs INH [facility] [place] [facility] [place] Stop: 03/22/22 08:59 Last Admin: 02/21/22 08:23 Dose: 1 puffs Documented by: Warfarin Sodium (Warfarin Sod 2.5 Mg Tab) 2.5 mg PO SuTuThSa@1600 [facility] Stop: 03/21/22 17:59 Last Admin: 02/20/22 15:51 Dose: 2.5 mg Documented by: Warfarin Sodium (Warfarin Sod 5 Mg Tab) 5 mg PO MoWeFr@1600 [facility] Stop: 03/22/22 15:59 Last Admin: 02/20/22 15:51 Dose: 5 mg Documented by: Warfarin Sodium (Warfarin Sod 2.5 Mg Tab) 2.5 mg PO DAILY@1600 [facility] Stop: 02/21/22 16:01 (1) Pulmonary embolism Acute cor pulmonale presence: without acute cor pulmonale Chronicity: chronic Pulmonary embolism type: unspecified Qualified Code(s): I27.82 - Chronic pulmonary embolism
--- NOTE | 2022-02-21 12:09 | XRay Report ---
XR abdomen min 2V HISTORY: 51 years-old Male constipation, eval for stool burden, obstruction acute generalized abdomi nal pain COMPARISON: CT abdomen and pelvis 12/29/2021 TECHNIQUE: 2 views of the abdomen FINDINGS: Moderate colonic fecal retention. The bowel gas pattern appears nonobstructive. Liver is enlarged. Ob scuration of the renal shadows. Pelvic basin phleboliths redemonstrated. 4 mm calculus of the interpo lar right kidney redemonstrated. No ureteral calculi are identified. No pneumatosis or pneumoperitone um. Cardiomegaly. No acute fracture. IMPRESSION: 1. Moderate fecal retention with nonobstructive bowel gas pattern. 2. 4 mm right renal calculus. 3. Hepatomegaly. ACT 112: Negative or not required by law. The above report was generated using voice recognition software. It may contain grammatical, syntax o r spelling errors. Electronically signed by: Shelton Apodaca M.D. 02/21/2022 12:06 PM
[2022-02-21] MEDS: WARFARIN SOD 2.5 MG TAB PO SCH (15:21)
[2022-02-21] MEDS ORDERED: WARFARIN SOD 2.5 MG TAB PO SCH (16:00)
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
[2022-02-21] MEDS: ATORVASTATIN 40 MG TAB PO SCH (21:03)
[2022-02-21] MEDS: CYCLOBENZAPRINE HCL 10 MG TAB PO PRN (21:31)
[2022-02-21] MEDS: INSULIN GLARGINE SOLOSTAR 100 UNITS/ML 3 ML PEN SC SCH (22:12)
[2022-02-22] MEDS: IPRATROPIUM BROMIDE NEB SOLN 0.02% 2.5 ML VIAL INH SCH ×5 (00:43→20:04)
[2022-02-22] MEDS: LEVALBUTEROL 1.25MG/0.5ML NEB INH SCH ×5 (00:43→20:03)
[2022-02-22 05:45] LABS: Hematocrit (blood only) 42.3 % (42-52); Hemoglobin 13.6 g/dL (14.0-18.0); Mean Corpuscular Hemoglobin 26.8 pg (25-34); Mean Corpuscular Hgb Conc 32.2 g/dL (32-36); Mean Corpuscular Volume 83.3 fL (80-100); Mean Platelet Volume 10.4 fL (7.4-10.4); Platelet Count 302 K/uL (130-400); RDW Standard Deviation 55.3 fL (36.4-46.3); Red Blood Count 5.08 M/uL (4.7-6.1); White Blood Count 15.69 K/uL (4.8-10.8)
[2022-02-22 06:06] LABS: INR 2.2 (0.9-1.1); Prothrombin Time 22.7 Seconds (9.0-12.0)
[2022-02-22 06:09] LABS: Albumin Globulin Ratio 1.2 (0.9-2); Albumin Level 3.8 gm/dl (3.4-5.0); BUN Creatinine Ratio 22.9 (10-20); Bilirubin,Total 0.4 mg/dl (0.2-1.0); Calcium 10.4 mg/dl (8.5-10.1); Creatinine Clr Calc Pharmacy 145.9 ml/min; Est GFR (African American) 94.8 ml/min; Est GFR (Non-African American) 81.8 ml/min; Globulin 3.3 gm/dl (2.5-4.0); Potassium 4.1 mmol/L (3.5-5.1); Total Protein 7.1 gm/dl (6.0-8.3)
[2022-02-22] MEDS: PANTOprazole 40 MG TAB PO SCH (06:13)
[2022-02-22] MEDS: FORMOTEROL 20 MCG/2 ML VIAL NEB SCH ×2 (07:28→20:02)
[2022-02-22] MEDS: BUDESONIDE 0.5 MG/2 ML VIAL (PULMICORT) NEB SCH ×2 (07:28→20:02)
[2022-02-22] MEDS: buprenorphine HCL 8 MG SUBL SL SCH ×3 (08:31→20:15)
[2022-02-22] MEDS: LACTOBACILLUS ACIDOPHILUS 1 GM PACK PO SCH ×3 (08:31→15:19)
[2022-02-22] MEDS: DOCUSATE SODIUM 100 MG CAP PO SCH ×2 (08:31→20:36)
[2022-02-22] MEDS: LORazepam 0.5 MG TAB PO PRN ×3 (08:31→22:09)
[2022-02-22] MEDS: POTASSIUM CHLORIDE CRTAB 20 MEQ TABCR PO SCH ×2 (08:31→20:36)
[2022-02-22] MEDS: CYCLOBENZAPRINE HCL 10 MG TAB PO PRN ×2 (08:31→20:24)
[2022-02-22] MEDS: DOXYCYCLINE HYCLATE 100 MG CAP PO SCH ×2 (08:32→20:13)
[2022-02-22] MEDS: FUROSEMIDE 40 MG/4 ML VIAL IV SCH ×2 (08:32→15:18)
[2022-02-22] MEDS: FOLIC ACID 1 MG TAB PO SCH (08:32)
[2022-02-22] MEDS: guaiFENesin 600 MG TABCR PO SCH ×2 (08:32→20:18)
[2022-02-22] MEDS: MAGNESIUM OXIDE 400 MG TAB PO SCH (08:32)
[2022-02-22] MEDS: FERROUS SULFATE 325 MG TAB PO SCH (08:32)
[2022-02-22] MEDS: GABAPENTIN 800 MG TAB PO SCH ×3 (08:33→20:17)
[2022-02-22] MEDS: FAMOTIDINE 20 MG TAB PO SCH (08:33)
[2022-02-22] MEDS: ISOSORBIDE DINITRATE 10 MG TAB PO SCH (08:33)
[2022-02-22] MEDS: FINASTERIDE 5 MG TAB PO SCH (08:33)
[2022-02-22] MEDS: SPIRONOLACTONE 25 MG TAB PO SCH (08:33)
[2022-02-22] MEDS: ASPIRIN 81 MG ECTAB PO SCH (08:34)
[2022-02-22] MEDS: METOPROLOL SUCC 25MG EXT REL TAB PO SCH ×2 (08:34→20:22)
[2022-02-22] MEDS: methylPREDNISolone 40 MG in SYRINGE 0 ML IV SCH ×2 (08:34→20:18)
[2022-02-22] MEDS: NICOTINE 21 MG/24 HR TDSY TD SCH (08:34)
[2022-02-22] MEDS: DULoxetine HCL 60 MG CAP PO SCH (08:34)
[2022-02-22] MEDS: FLUTICASONE PROPIONATE NA SPR 16 GM BTL SCH (08:34)
[2022-02-22] MEDS: POLYETHYLENE (MIRALAX) 17 GM PACK PO SCH ×2 (08:35→20:20)
[2022-02-22] MEDS: UMECLIDINIUM BROMIDE 62.5MCG/BLISTER 7 PUFFS/INHALER INH SCH (08:36)
[2022-02-22] MEDS: TAMSULOSIN HCL 0.4 MG CAP PO SCH (08:36)
[2022-02-22] MEDS: INSULIN ASPART PER UNIT SC SCH ×4 (08:52→22:16)
--- NOTE | 2022-02-22 09:21 | Urology Progress Note ---
Date of Service February 22, 2022 Assessment & Plan (1) Urinary incontinence: Plan: Reviewed his records and discussed his current issues He has no acute issues that require any intervention He does have an outpatient follow-up scheduled which I [facility] and concerns We discussed his current incontinence and the relationship between Lasix use and his leakage We discussed the pros and cons of a Lloyd catheterfor the time being I recommend against placing a Lloyd catheter and dealing with incontinence I have also discussed that 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 that likely has no easy resolution aside from weight loss Overall, I do not believe there are any acute issues that require further follow-up while inpatient Admission and Anticipated Discharge Date Admission Date: February 19, 2022 Subjective Patient concerned about incontinencethis started after beginning high-dose Lasix He does have a history of urinary retention with a prior Lloyd catheter but he is not currently retaining Creatinine 1.0 On max medication for BPH Has an outpatient appointment scheduled for later in the month Also concerned about a buried penis Physical Exam Constitutional: well developed and well nourished Respiratory: no respiratory distress Cardiovascular: Extremities: no pedal edema Gastrointestinal (Abdomen): Inspection/Auscultation: abdomen normal to inspection Results & Data ([facility]) Vital Signs (Past 12 Hours) Vital Signs Temp Pulse Pulse Resp BP Pulse Ox 02/22/22 07:45 36.5 C 57 L 20 153/76 H 98 02/22/22 03:15 36.6 C 62 20 141/72 H 97 02/22/22 03:12 70 02/21/22 23:13 36.8 C 73 18 160/68 H 97 PG Care Time/CCT Total # of Minutes Spent Total Time Spent with Patient: Total time spent is greater than 50% in coordination of care (as documented) at patient's floor/unit and/or counseling patient: Coding Level of Care Code 96699 Subseq Hosp Care Lvl 2 Diagnoses Urinary incontinence R32
[2022-02-22] MEDS ORDERED: LEVALBUTEROL HCL 1.25 MG/3 ML NEB ONE (13:31)
[2022-02-22 13:47] LABS: Appearance Urine Clear (Clear); Bacteria Urine Automated Negative (Negative); Bilirubin Urine Negative (Negative); Blood Urine Negative (Negative); Cast Urine Automated 0 /lpf (0-5); Color Urine Yellow; Epithelial Cell Urine Auto 20-30 /lpf (0-5); Glucose Urine UA Negative (Negative); Ketones Urine Negative (Negative); Leukocyte Esterase Urine Trace (Negative); Nitrite Urine Negative (Negative); Protein Urine Negative (Negative); RBC Urine Automated 0-4 /hpf (0-4); Specific Gravity Urine 1.012 (1.000-1.030); Urobilinogen Urine Negative (Negative); pH Urine 6.5 (4.5-7.5)
--- NOTE | 2022-02-22 16:43 | Hospitalist Progress Note ---
Date of Service February 22, 2022 Assessment & Plan (1) Acute exacerbation of chronic obstructive pulmonary disease: Plan: Improved wheezing continue IV solumedrol, nebulizers Counseled smoking cessation (2) Acute on chronic heart failure with preserved ejection fraction: Plan: BNP not significantly elevated Difficult to assess fluid balance based on exam due to patient's body habitus Weight is lower than his last dry weight continue lasix 40mg IV BID while here, resume home lasix and metolazone at discharge 2L fluid restriction (3) Tobacco dependence due to cigarettes: Plan: -Nicotine patch ordered (4) 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: Plan: - ISS with accuchecks achs - Last A1C = 7.6 on 12/16/21 - Hold glipizide, continue lantus 50 U HS, allow HH/DM diet while here, fluid restriction as above for CHF exacerbation (5) Pulmonary embolism: Plan: - hx of such, on chronic anticoagulation; coumadin 5 mg M//, 2.5 mg on all other days INR therapeutic -continue coumadin (6) Constipation: Plan: - Miralax increase to BID, daily dulcolax NJ until BM -patient reports no BM in over 1 week -abdominal X ray shows moderate stool burden DVT ppx: - teds, scds, continue Coumadin CODE: Full code Dispo: From home, return home when medically stable. Discharge tomorrow (although patient reports his 's car broke down and he can't return home until Wednesday) Admission and Anticipated Discharge Date Admission Date: February 19, 2022 Subjective Patient with multiple complaints and had a list of chronic issues that he wanted to discuss with me. When I explained that we will focus only on acute issues and chronic issues have to be discussed with his PCP, his response "I get so overwhelmed and can't get in to see my PCP". I encouraged close follow up with his doctors after discuss for ongoing lifestyle modifications (smoking cessation), weight loss goals/counseling, and general health maintenance Patient with no acute issues overnight Still no BM Physical Exam Physical Exam: Morbidly obese, no acute distress, non toxic Respiratory: Mild expiratory wheezing, good airflow, no rhonchi/rales Cardiovascular: Regular rate and rhythm, no murmurs/rubs/gallops Gastrointestinal (Abdomen): obese, non tender Musculoskeletal: no edema Skin: excoriations of lower extremity Neurologic: awake, alert, spontaneously moving extremities, walking to bathroom independently Results & Data Results & Data ([facility]) Vital Signs (Past 12 Hours) Vital Signs Temp Pulse Pulse Resp BP BP Pulse Ox 02/22/22 15:48 74 02/22/22 15:20 36.6 C 67 17 142/62 H 93 02/22/22 13:34 78 18 95 02/22/22 11:55 36.7 C 70 20 125/62 93 02/22/22 08:00 69 02/22/22 07:45 36.5 C 57 L 20 153/76 H 98 Laboratory Results Short CBC 02/22/22 Range/Units 05:13 WBC 15.69 H (4.8-10.8) K/uL Hgb 13.6 L (14.0-18.0) g/dL Hct 42.3 (42-52) % Plt Count 302 (130-400) K/uL BMP 02/22/22 05:13 Sodium 138 Potassium 4.1 Chloride 98 Carbon Dioxide 36 H BUN 24 H Creatinine 1.05 Glucose 231 H Calcium 10.4 H Liver Function 02/22/22 Range/Units 05:13 Total Bilirubin 0.4 (0.2-1.0) mg/dl AST 11 L (13-39) U/L ALT 12 (7-52) U/L Alkaline Phosphatase 88 (34-104) U/L Albumin 3.8 (3.4-5.0) gm/dl Urine 02/22/22 Range/Units 12:30 Urine Color Yellow Urine Appearance Clear (Clear) Urine pH 6.5 (4.5-7.5) Ur Specific [place] 1.012 (1.000-1.030) Urine Protein Negative (Negative) Urine Glucose (UA) Negative (Negative) Medications Administered Current Inpatient Medications Aspirin (Aspirin 81 Mg Ectab) 81 mg PO QAM [facility] Stop: 03/22/22 08:59 Last Admin: 02/22/22 08:34 Dose: 81 mg Documented by: Atorvastatin Calcium (Atorvastatin 40 Mg Tab) 80 mg PO QPM [facility] Stop: 03/21/22 20:59 Last Admin: 02/21/22 21:03 Dose: 80 mg Documented by: Benzonatate (Benzonatate 100 Mg Capsule) 100 mg PO TID PRN PRN Reason: cough Stop: 03/21/22 17:30 Last Admin: 02/20/22 15:52 Dose: 100 mg Documented by: Bisacodyl (Bisacodyl 10 Mg Supp) 10 mg NJ DAILY PRN PRN Reason: Constipation Stop: 03/21/22 17:30 Last Admin: 02/19/22 19:30 Dose: 10 mg Documented by: Budesonide (Budesonide 0.5 Mg/2 Ml Vial (Pulmicort)) 0.5 mg NEB BIDR [facility] Stop: 03/22/22 18:59 Last Admin: 02/22/22 07:28 Dose: Not Given Documented by: Buprenorphine HCl (Buprenorphine Hcl 8 Mg Subl) 8 mg SL TID EMPERATRIZ Stop: 03/21/22 20:59 Last Admin: 02/22/22 13:54 Dose: 8 mg Documented by: Cyclobenzaprine HCl (Cyclobenzaprine Hcl 10 Mg Tab) 10 mg PO BID PRN PRN Reason: Muscle Spasm Stop: 03/21/22 17:30 Last Admin: 02/22/22 08:31 Dose: 10 mg Documented by: Dextrose (Dextrose 50% 50 Ml Syringe) 25 - 50 ml IV UD PRN; Protocol PRN Reason: Hypoglycemia Protocol Stop: 03/21/22 17:30 Docusate Sodium (Docusate Sodium 100 Mg Cap) 100 mg PO BID [facility] Stop: 03/21/22 20:59 Last Admin: 02/22/22 08:31 Dose: 100 mg Documented by: Doxycycline Hyclate (Doxycycline Hyclate 100 Mg Cap) 100 mg PO Q12H EMPERATRIZ Stop: 02/26/22 18:59 Last Admin: 02/22/22 08:32 Dose: 100 mg Documented by: Duloxetine HCl (Duloxetine Hcl 60 Mg Cap) 60 mg PO DAILY EMPERATRIZ Stop: 03/22/22 08:59 Last Admin: 02/22/22 08:34 Dose: 60 mg Documented by: Famotidine (Famotidine 20 Mg Tab) 20 mg PO DAILY [facility] Stop: 03/22/22 08:59 Last Admin: 02/22/22 08:33 Dose: 20 mg Documented by: Ferrous Sulfate (Ferrous Sulfate 325 Mg Tab) 325 mg PO DAILY@1100 [facility] Stop: 03/22/22 08:59 Last Admin: 02/22/22 08:32 Dose: 325 mg Documented by: Finasteride (Finasteride 5 Mg Tab) 5 mg PO QAM EMPERATRIZ Stop: 03/22/22 08:59 Last Admin: 02/22/22 08:33 Dose: 5 mg Documented by: Fluticasone Propionate (Fluticasone Propionate Na Spr 16 Gm Btl) 2 sprays NA DAILY EMPER[facility]RIZ Stop: 03/22/22 08:59 Last Admin: 02/22/22 08:34 Dose: 2 sprays Documented by: Folic Acid (Folic Acid 1 Mg Tab) 1 mg PO QAM EMPERATRIZ Stop: 03/22/22 08:59 Last Admin: 02/22/22 08:32 Dose: 1 mg Documented by: Formoterol Fumarate (Formoterol 20 Mcg/2 Ml Vial) 20 mcg NEB BID EMPERATRIZ Stop: 03/22/22 20:59 Last Admin: 02/22/22 07:28 Dose: Not Given Documented by: Furosemide (Furosemide 40 Mg/4 Ml Vial) 40 mg IV BID17 EMPERATRIZ Stop: 03/21/22 16:59 Last Admin: 02/22/22 15:18 Dose: 40 mg Documented by: Gabapentin (Gabapentin 800 Mg Tab) 800 mg PO TID EMPERATRIZ Stop: 03/21/22 20:59 Last Admin: 02/22/22 13:54 Dose: 800 mg Documented by: Glucagon (Glucagon For Inj 1 Mg Vial) 1 mg SQ UD PRN; Protocol PRN Reason: Hypoglycemia Protocol Stop: 03/21/22 17:30 Glucose (Glucose 10 Tabs/Tube) 4 - 8 tabs PO UD PRN; Protocol PRN Reason: Hypoglycemia Protocol Stop: 03/21/22 17:30 Glucose (Glucose 40% Gel 15 Gm Tube) 15 - 30 gm PO UD PRN; Protocol PRN Reason: Hypoglycemia Protocol Stop: 03/21/22 17:30 Guaifenesin (Guaifenesin 600 Mg Tabcr) 1,200 mg PO Q12 EMPERATRIZ Stop: 03/21/22 20:59 Last Admin: 02/22/22 08:32 Dose: 1,200 mg Documented by: Hydroxyzine HCl (Hydroxyzine Hcl 25 Mg Tab) 25 mg PO QID PRN PRN Reason: Anxiety Stop: 03/21/22 17:30 Last Admin: 02/20/22 15:53 Dose: 25 mg Documented by: Methylprednisolone 40 mg/ (Syringe) 0.64 mls @ 1.5 mls/min IV BID EMPERATRIZ Stop: 03/21/22 20:59 Last Admin: 02/22/22 08:34 Dose: 1.5 mls/min Documented by: Insulin Aspart (Insulin Aspart Per Unit) 0 units SC ACHS [facility] Stop: 03/21/22 17:30 Last Admin: 02/22/22 13:13 Dose: 13 units Documented by: Insulin Glargine (Insulin Glargine Solostar 100 Units/Ml 3 Ml Pen) 50 units SC HS [facility] Stop: 03/21/22 20:59 Last Admin: 02/21/22 22:12 Dose: 50 units Documented by: Ipratropium [place] (Ipratropium [place] Neb Soln 0.02% 2.5 Ml Vial) 0.5 mg INH Q6R [facility] Stop: 03/22/22 06:59 Last Admin: 02/22/22 13:32 Dose: 0.5 mg Documented by: Isosorbide Dinitrate (Isosorbide Dinitrate 10 Mg Tab) 30 mg PO DAILY [facility] Stop: 03/22/22 08:59 Last Admin: 02/22/22 08:33 Dose: 30 mg Documented by: Lactobacillus Acidophilus (Lactobacillus Acidophilus 1 Gm Pack) 1 gm PO TIDM [facility] Stop: 03/21/22 20:59 Last Admin: 02/22/22 15:19 Dose: 1 gm Documented by: Levalbuterol HCl (Levalbuterol 1.25mg/0.5ml Neb) 1.25 mg INH Q6R [facility] Stop: 03/22/22 06:59 Last Admin: 02/22/22 13:33 Dose: Not Given Documented by: Lorazepam (Lorazepam 0.5 Mg Tab) 0.5 mg PO TID PRN PRN Reason: Anxiety Stop: 03/21/22 19:41 Last Admin: 02/22/22 13:53 Dose: 0.5 mg Documented by: Magnesium Oxide (Magnesium Oxide 400 Mg Tab) 400 mg PO DAILY@1100 [facility] Stop: 03/22/22 08:59 Last Admin: 02/22/22 08:32 Dose: 400 mg Documented by: Metolazone (Metolazone 2.5 Mg Tablet) 2.5 mg PO MoWeFr@0900 [facility] Stop: 03/22/22 08:59 Last Admin: 02/20/22 09:36 Dose: 2.5 mg Documented by: Metoprolol Succinate (Metoprolol Succ 25mg Ext Rel Tab) 75 mg PO BID [facility] Stop: 03/21/22 20:59 Last Admin: 02/22/22 08:34 Dose: 75 mg Documented by: [place]ola (Remove Nicoderm Patch) 1 ea N/A DAILY@0859 [facility] Stop: 03/22/22 08:58 Last Admin: 02/22/22 08:34 Dose: 1 ea Documented by: Schuyleraneous (Carbohydrates For Hypoglycemia ) 15 - 30 gm PO UD PRN PRN Reason: Hypoglycemia Protocol Stop: 03/21/22 17:30 Nicotine (Nicotine 21 Mg/24 Hr Tdsy) 21 mg TD QAM [facility] Stop: 03/21/22 14:59 Last Admin: 02/22/22 08:34 Dose: 21 mg Documented by: Ondansetron HCl (Ondansetron Inj 2 Mg/Ml 2 Ml Vial) 4 mg IV Q4H PRN PRN Reason: Nausea And Vomiting Stop: 03/21/22 17:30 Pantoprazole Sodium (Pantoprazole 40 Mg Tab) 40 mg PO DAILYBB [facility] Stop: 03/22/22 06:29 Last Admin: 02/22/22 06:13 Dose: 40 mg Documented by: Polyethylene Glycol (Polyethylene (Miralax) 17 Gm Pack) 17 gm PO BID [facility] Stop: 03/23/22 20:59 Last Admin: 02/22/22 08:35 Dose: 17 gm Documented by: Potassium Chloride (Potassium Chloride Crtab 20 Meq Tabcr) 20 meq PO BID [facility] Stop: 03/21/22 20:59 Last Admin: 02/22/22 08:31 Dose: 20 meq Documented by: Sennosides (Senna 8.6 Mg Tab) 8.6 mg PO DAILY PRN PRN Reason: Constipation Stop: 03/21/22 17:30 Last Admin: 02/19/22 19:29 Dose: 8.6 mg Documented by: Spironolactone (Spironolactone 25 Mg Tab) 25 mg PO QAM [facility] Stop: 03/22/22 08:59 Last Admin: 02/22/22 08:33 Dose: 25 mg Documented by: Tamsulosin HCl (Tamsulosin Hcl 0.4 Mg Cap) 0.4 mg PO QAM [facility] Stop: 03/22/22 08:59 Last Admin: 02/22/22 08:36 Dose: 0.4 mg Documented by: Umeclidinium [place] (Umeclidinium [place] 62.5mcg/Blister 7 Puffs/Inhaler) 1 puffs INH QAM [facility] Stop: 03/22/22 08:59 Last Admin: 02/22/22 08:36 Dose: 1 puffs Documented by: Warfarin Sodium (Warfarin Sod 2.5 Mg Tab) 2.5 mg PO SuTuThSa@1600 [facility] Stop: 03/21/22 17:59 Last Admin: 02/21/22 15:21 Dose: 2.5 mg Documented by: Warfarin Sodium (Warfarin Sod 5 Mg Tab) 5 mg PO MoWeFr@1600 [facility] Stop: 03/22/22 15:59 Last Admin: 02/20/22 15:51 Dose: 5 mg Documented by: (1) Pulmonary embolism Acute cor pulmonale presence: without acute cor pulmonale Chronicity: chronic Pulmonary embolism type: unspecified Qualified Code(s): I27.82 - Chronic pulmonary embolism
[2022-02-22] MEDS ORDERED: ACETAMINOPHEN 65 ML IV PRN (19:12)
[2022-02-22] MEDS: ATORVASTATIN 40 MG TAB PO SCH (20:15)
[2022-02-22] MEDS: INSULIN GLARGINE SOLOSTAR 100 UNITS/ML 3 ML PEN SC SCH (22:10)
[2022-02-23] MEDS: LEVALBUTEROL 1.25MG/0.5ML NEB INH SCH ×2 (00:33→07:13)
[2022-02-23] MEDS: IPRATROPIUM BROMIDE NEB SOLN 0.02% 2.5 ML VIAL INH SCH ×2 (00:33→07:13)
[2022-02-23] MEDS: PANTOprazole 40 MG TAB PO SCH (05:34)
[2022-02-23] MEDS: BUDESONIDE 0.5 MG/2 ML VIAL (PULMICORT) NEB SCH ×2 (07:13→19:50)
[2022-02-23] MEDS: FORMOTEROL 20 MCG/2 ML VIAL NEB SCH ×2 (07:13→19:51)
[2022-02-23 07:58] LABS: BUN Creatinine Ratio 33.3 (10-20); Calcium 10.3 mg/dl (8.5-10.1); Est GFR (African American) 115.8 ml/min; Est GFR (Non-African American) 99.9 ml/min; Magnesium 1.8 mg/dl (1.7-2.4); Potassium 4.2 mmol/L (3.5-5.1)
[2022-02-23] MEDS: buprenorphine HCL 8 MG SUBL SL SCH ×2 (08:11→12:23)
[2022-02-23] MEDS: CYCLOBENZAPRINE HCL 10 MG TAB PO PRN (08:12)
[2022-02-23] MEDS: INSULIN ASPART PER UNIT SC SCH ×3 (08:12→17:56)
[2022-02-23] MEDS: LORazepam 0.5 MG TAB PO PRN (08:12)
[2022-02-23] MEDS: ASPIRIN 81 MG ECTAB PO SCH (08:13)
[2022-02-23] MEDS: metOLazone 2.5 MG TABLET PO SCH (08:14)
[2022-02-23] MEDS: FOLIC ACID 1 MG TAB PO SCH (08:14)
[2022-02-23] MEDS: SPIRONOLACTONE 25 MG TAB PO SCH (08:14)
[2022-02-23] MEDS: DULoxetine HCL 60 MG CAP PO SCH (08:15)
[2022-02-23] MEDS: FUROSEMIDE 40 MG/4 ML VIAL IV SCH ×2 (08:15→15:57)
[2022-02-23] MEDS: TAMSULOSIN HCL 0.4 MG CAP PO SCH (08:16)
[2022-02-23] MEDS: FINASTERIDE 5 MG TAB PO SCH (08:16)
[2022-02-23] MEDS: METOPROLOL SUCC 25MG EXT REL TAB PO SCH (08:17)
[2022-02-23] MEDS: guaiFENesin 600 MG TABCR PO SCH (08:17)
[2022-02-23] MEDS: GABAPENTIN 800 MG TAB PO SCH ×2 (08:17→12:23)
[2022-02-23] MEDS: POLYETHYLENE (MIRALAX) 17 GM PACK PO SCH (08:18)
[2022-02-23] MEDS: FAMOTIDINE 20 MG TAB PO SCH (08:18)
[2022-02-23] MEDS: FLUTICASONE PROPIONATE NA SPR 16 GM BTL SCH (08:18)
[2022-02-23] MEDS: NICOTINE 21 MG/24 HR TDSY TD SCH (08:18)
[2022-02-23] MEDS: ISOSORBIDE DINITRATE 10 MG TAB PO SCH (08:20)
[2022-02-23] MEDS: LACTOBACILLUS ACIDOPHILUS 1 GM PACK PO SCH ×3 (08:21→15:55)
[2022-02-23] MEDS: methylPREDNISolone 40 MG in SYRINGE 0 ML IV SCH (08:21)
[2022-02-23] MEDS: DOXYCYCLINE HYCLATE 100 MG CAP PO SCH ×2 (08:22→17:56)
[2022-02-23] MEDS: UMECLIDINIUM BROMIDE 62.5MCG/BLISTER 7 PUFFS/INHALER INH SCH (08:23)
[2022-02-23] MEDS: POTASSIUM CHLORIDE CRTAB 20 MEQ TABCR PO SCH (08:28)
[2022-02-23] MEDS: DOCUSATE SODIUM 100 MG CAP PO SCH (08:28)
[2022-02-23] MEDS: ACETAMINOPHEN 1,000 MG/100 ML VIAL IV PRN ×2 (08:50→18:50)
[2022-02-23] MEDS ORDERED: LEVALBUTEROL 1.25MG/0.5ML NEB INH PRN (10:11)
[2022-02-23] MEDS ORDERED: IPRATROPIUM BROMIDE NEB SOLN 0.02% 2.5 ML VIAL INH PRN (10:11)
[2022-02-23] MEDS: FERROUS SULFATE 325 MG TAB PO SCH (12:04)
[2022-02-23] MEDS ORDERED: DICLOFENAC SOD 1% GEL 100 GM TUBE EXT PRN (12:05)
[2022-02-23] MEDS: MAGNESIUM OXIDE 400 MG TAB PO SCH (12:05)
[2022-02-23] MEDS: WARFARIN SOD 5 MG TAB PO SCH (15:56)
--- NOTE | 2022-02-23 17:51 | Hospitalist Progress Note ---
Date of Service February 23, 2022 Assessment & Plan (1) Acute exacerbation of chronic obstructive pulmonary disease: Plan: Improved wheezing continue IV solumedrol, nebulizers Counseled smoking cessation (2) Acute on chronic heart failure with preserved ejection fraction: Plan: BNP not significantly elevated Difficult to assess fluid balance based on exam due to patient's body habitus Weight is lower than his last dry weight continue lasix 40mg IV BID while here, resume home lasix and metolazone at discharge 2L fluid restriction (3) Tobacco dependence due to cigarettes: Plan: -Nicotine patch ordered (4) 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: Plan: - ISS with accuchecks achs - Last A1C = 7.6 on 12/16/21 - Hold glipizide, continue lantus 50 U HS, allow HH/DM diet while here, fluid restriction as above for CHF exacerbation (5) Pulmonary embolism: Plan: - hx of such, on chronic anticoagulation; coumadin 5 mg M//, 2.5 mg on all other days INR therapeutic -continue coumadin (6) Constipation: Plan: - Miralax increase to BID, daily dulcolax MT until BM -patient reports no BM in over 1 week -abdominal X ray shows moderate stool burden Chest pain -EKG reviewed by me, no dyanmic ischemic changes -trend trop x 3 DVT ppx: - teds, scds, continue Coumadin CODE: Full code Dispo: From home, patient is medically stable for discharge but can't leave until tomorrow due to family issues. Admission and Anticipated Discharge Date Admission Date: February 19, 2022 Subjective No issues overnight This PM complained of non exertional chest pain Remains on room air Physical Exam Physical Exam: Morbidly obese, no acute distress Cardiovascular: regular rate and rhythm, no murmurs/rubs/gallops Chest (Breasts): Additional Comments: moderate airflow, wheezing has resolved Musculoskeletal: no edema Skin: some excoriations lower extremity Neurologic: Awake, alert, spontaneously moving extremities Results & Data Results & Data ([facility]) Vital Signs (Past 12 Hours) Vital Signs Temp Pulse Pulse Resp BP BP Pulse Ox 02/23/22 15:53 79 155/78 H 90 02/23/22 15:10 81 02/23/22 14:43 36.7 C 76 20 136/57 L 92 02/23/22 12:12 36.4 C L 77 18 131/63 95 02/23/22 07:57 36.4 C L 63 16 120/74 96 02/23/22 07:28 54 L Laboratory Results BMP 02/23/22 06:40 Sodium 138 Potassium 4.2 Chloride 100 Carbon Dioxide 34 H BUN 29 H Creatinine 0.87 Glucose 149 H Calcium 10.3 H Medications Administered Current Inpatient Medications Aspirin (Aspirin 81 Mg Ectab) 81 mg PO QAM [facility] Stop: 03/22/22 08:59 Last Admin: 02/23/22 08:13 Dose: 81 mg Documented by: Atorvastatin Calcium (Atorvastatin 40 Mg Tab) 80 mg PO QPM EMPERATRIZ Stop: 03/21/22 20:59 Last Admin: 02/22/22 20:15 Dose: 80 mg Documented by: Benzonatate (Benzonatate 100 Mg Capsule) 100 mg PO TID PRN PRN Reason: cough Stop: 03/21/22 17:30 Last Admin: 02/20/22 15:52 Dose: 100 mg Documented by: Bisacodyl (Bisacodyl 10 Mg Supp) 10 mg MT DAILY PRN PRN Reason: Constipation Stop: 03/21/22 17:30 Last Admin: 02/19/22 19:30 Dose: 10 mg Documented by: Budesonide (Budesonide 0.5 Mg/2 Ml Vial (Pulmicort)) 0.5 mg NEB BIDR [facility] Stop: 03/22/22 18:59 Last Admin: 02/23/22 07:13 Dose: Not Given Documented by: Buprenorphine HCl (Buprenorphine Hcl 8 Mg Subl) 8 mg SL TID EMPERATRIZ Stop: 03/21/22 20:59 Last Admin: 02/23/22 12:23 Dose: 8 mg Documented by: Cyclobenzaprine HCl (Cyclobenzaprine Hcl 10 Mg Tab) 10 mg PO BID PRN PRN Reason: Muscle Spasm Stop: 03/21/22 17:30 Last Admin: 02/23/22 08:12 Dose: 10 mg Documented by: Dextrose (Dextrose 50% 50 Ml Syringe) 25 - 50 ml IV UD PRN; Protocol PRN Reason: Hypoglycemia Protocol Stop: 03/21/22 17:30 Diclofenac Sodium (Diclofenac Sod 1% Gel 100 Gm Tube) 4 gm EXT TID PRN PRN Reason: pain Stop: 03/25/22 13:59 Docusate Sodium (Docusate Sodium 100 Mg Cap) 100 mg PO BID EMPERATRIZ Stop: 03/21/22 20:59 Last Admin: 02/23/22 08:28 Dose: 100 mg Documented by: Doxycycline Hyclate (Doxycycline Hyclate 100 Mg Cap) 100 mg PO Q12H EMPERATRIZ Stop: 02/26/22 18:59 Last Admin: 02/23/22 08:22 Dose: 100 mg Documented by: Duloxetine HCl (Duloxetine Hcl 60 Mg Cap) 60 mg PO DAILY EMPERATRIZ Stop: 03/22/22 08:59 Last Admin: 02/23/22 08:15 Dose: 60 mg Documented by: Famotidine (Famotidine 20 Mg Tab) 20 mg PO DAILY EMPERATRIZ Stop: 03/22/22 08:59 Last Admin: 02/23/22 08:18 Dose: 20 mg Documented by: Ferrous Sulfate (Ferrous Sulfate 325 Mg Tab) 325 mg PO DAILY@1100 [facility] Stop: 03/22/22 08:59 Last Admin: 02/23/22 12:04 Dose: 325 mg Documented by: Finasteride (Finasteride 5 Mg Tab) 5 mg PO QAM E[facility] Stop: 03/22/22 08:59 Last Admin: 02/23/22 08:16 Dose: 5 mg Documented by: Fluticasone Propionate (Fluticasone Propionate Na Spr 16 Gm Btl) 2 sprays NA DAILY EMPERATRIZ Stop: 03/22/22 08:59 Last Admin: 02/23/22 08:18 Dose: 2 sprays Documented by: Folic Acid (Folic Acid 1 Mg Tab) 1 mg PO QAM EMPERATRIZ Stop: 03/22/22 08:59 Last Admin: 02/23/22 08:14 Dose: 1 mg Documented by: Formoterol Fumarate (Formoterol 20 Mcg/2 Ml Vial) 20 mcg NEB BID EMPERATRIZ Stop: 03/22/22 20:59 Last Admin: 02/23/22 07:13 Dose: Not Given Documented by: Furosemide (Furosemide 40 Mg/4 Ml Vial) 40 mg IV BID17 EMPERATRIZ Stop: 03/21/22 16:59 Last Admin: 02/23/22 15:57 Dose: 40 mg Documented by: Gabapentin (Gabapentin 800 Mg Tab) 800 mg PO TID EMPERATRIZ Stop: 03/21/22 20:59 Last Admin: 02/23/22 12:23 Dose: 800 mg Documented by: Glucagon (Glucagon For Inj 1 Mg Vial) 1 mg SQ UD PRN; Protocol PRN Reason: Hypoglycemia Protocol Stop: 03/21/22 17:30 Glucose (Glucose 10 Tabs/Tube) 4 - 8 tabs PO UD PRN; Protocol PRN Reason: Hypoglycemia Protocol Stop: 03/21/22 17:30 Glucose (Glucose 40% Gel 15 Gm Tube) 15 - 30 gm PO UD PRN; Protocol PRN Reason: Hypoglycemia Protocol Stop: 03/21/22 17:30 Guaifenesin (Guaifenesin 600 Mg Tabcr) 1,200 mg PO Q12 EMP[facility]ATRIZ Stop: 03/21/22 20:59 Last Admin: 02/23/22 08:17 Dose: 1,200 mg Documented by: Hydroxyzine HCl (Hydroxyzine Hcl 25 Mg Tab) 25 mg PO QID PRN PRN Reason: Anxiety Stop: 03/21/22 17:30 Last Admin: 02/20/22 15:53 Dose: 25 mg Documented by: Methylprednisolone 40 mg/ (Syringe) 0.64 mls @ 1.5 mls/min IV BID EMPERATRIZ Stop: 03/21/22 20:59 Last Admin: 02/23/22 08:21 Dose: 1.5 mls/min Documented by: Acetaminophen (Ofirmev) 1,000 mg in 100 mls @ 200 mls/hr IV Q8H PRN; Protocol PRN Reason: pain/fever Stop: 02/26/22 08:10 Last Infusion: 02/23/22 09:15 Dose: Infused Documented by: Insulin Aspart (Insulin Aspart Per Unit) 0 units SC ACHS EMPERATRIZ Stop: 03/21/22 17:30 Last Admin: 02/23/22 12:11 Dose: 36 units Documented by: Insulin Glargine (Insulin Glargine Solostar 100 Units/Ml 3 Ml Pen) 50 units SC HS EMPERATRIZ Stop: 03/21/22 20:59 Last Admin: 02/22/22 22:10 Dose: 50 units Documented by: Ipratropium [place] (Ipratropium [place] Neb Soln 0.02% 2.5 Ml Vial) 0.5 mg INH Q6R PRN PRN Reason: Shortness Of Breath Or Wheezing Stop: 03/22/22 06:59 Isosorbide Dinitrate (Isosorbide Dinitrate 10 Mg Tab) 30 mg PO DAILY EMPERATRIZ Stop: 03/22/22 08:59 Last Admin: 02/23/22 08:20 Dose: 30 mg Documented by: Lactobacillus Acidophilus (Lactobacillus Acidophilus 1 Gm Pack) 1 gm PO TIDM [facility] Stop: 03/21/22 20:59 Last Admin: 02/23/22 15:55 Dose: Not Given Documented by: Levalbuterol HCl (Levalbuterol 1.25mg/0.5ml Neb) 1.25 mg INH Q6R PRN PRN Reason: Shortness Of Breath Or Wheezing Stop: 03/22/22 06:59 Lorazepam (Lorazepam 0.5 Mg Tab) 0.5 mg PO TID PRN PRN Reason: Anxiety Stop: 03/21/22 19:41 Last Admin: 02/23/22 08:12 Dose: 0.5 mg Documented by: Magnesium Oxide (Magnesium Oxide 400 Mg Tab) 400 mg PO DAILY@1100 [facility] Stop: 03/22/22 08:59 Last Admin: 02/23/22 12:05 Dose: 400 mg Documented by: Metolazone (Metolazone 2.5 Mg Tablet) 2.5 mg PO MoWeFr@0900 [facility] Stop: 03/22/22 08:59 Last Admin: 02/23/22 08:14 Dose: 2.5 mg Documented by: Metoprolol Succinate (Metoprolol Succ 25mg Ext Rel Tab) 75 mg PO BID [facility] Stop: 03/21/22 20:59 Last Admin: 02/23/22 08:17 Dose: Not Given Documented by: Miscellaneous (Remove Nicoderm Patch) 1 ea N/A DAILY@0859 [facility] Stop: 03/22/22 08:58 Last Admin: 02/23/22 08:22 Dose: 1 ea Documented by: Miscellaneous (Carbohydrates For Hypoglycemia ) 15 - 30 gm PO UD PRN PRN Reason: Hypoglycemia Protocol Stop: 03/21/22 17:30 Nicotine (Nicotine 21 Mg/24 Hr Tdsy) 21 mg TD QAM [facility] Stop: 03/21/22 14:59 Last Admin: 02/23/22 08:18 Dose: 21 mg Documented by: Ondansetron HCl (Ondansetron Inj 2 Mg/Ml 2 Ml Vial) 4 mg IV Q4H PRN PRN Reason: Nausea And Vomiting Stop: 03/21/22 17:30 Pantoprazole Sodium (Pantoprazole 40 Mg Tab) 40 mg PO DAILYBB [facility] Stop: 03/22/22 06:29 Last Admin: 02/23/22 05:34 Dose: 40 mg Documented by: Polyethylene Glycol (Polyethylene (Miralax) 17 Gm Pack) 17 gm PO BID [facility] Stop: 03/23/22 20:59 Last Admin: 02/23/22 08:18 Dose: 17 gm Documented by: Potassium Chloride (Potassium Chloride Crtab 20 Meq Tabcr) 20 meq PO BID [facility] Stop: 03/21/22 20:59 Last Admin: 02/23/22 08:28 Dose: 20 meq Documented by: Sennosides (Senna 8.6 Mg Tab) 8.6 mg PO DAILY PRN PRN Reason: Constipation Stop: 03/21/22 17:30 Last Admin: 02/19/22 19:29 Dose: 8.6 mg Documented by: Spironolactone (Spironolactone 25 Mg Tab) [facility] Stop: 03/22/22 08:59 Last Admin: 02/23/22 08:14 Dose: 25 mg Documented by: Tamsulosin HCl (Tamsulosin Hcl 0.4 Mg Cap) 0.4 mg [facility] [place] Stop: 03/22/22 08:59 Last Admin: 02/23/22 08:16 Dose: 0.4 mg Documented by: Umeclidinium [place] (Umeclidinium [place] 62.5mcg/Blister 7 Puffs/Inhaler) 1 puffs INH [facility] Stop: 03/22/22 08:59 Last Admin: 02/23/22 08:23 Dose: 1 puffs Documented by: Warfarin Sodium (Warfarin Sod 2.5 Mg Tab) 2.5 mg PO SuTuThSa@1600 [facility] Stop: 03/21/22 17:59 Last Admin: 02/21/22 15:21 Dose: 2.5 mg Documented by: Warfarin Sodium (Warfarin Sod 5 Mg Tab) 5 mg PO MoWeFr@1600 [facility] Stop: 03/22/22 15:59 Last Admin: 02/23/22 15:56 Dose: 5 mg Documented by: (1) Pulmonary embolism Pulmonary embolism type: unspecified Chronicity: chronic Acute cor pulmonale presence: without acute cor pulmonale Qualified Code(s): I27.82 - Chronic pulmonary embolism
--- NOTE | 2022-02-24 21:18 | Discharge Summary ---
Date of Service February 24, 2022 Admission HPI Per Admitting Provider This is 51 y/o M with PMH DM II, HTN, H/O PE, on Coumadin, diastolic CHF, chronic back pain, COPD, urinary retention with chronic Lloyd that was recently removed after voiding trial, depression, anxiety, h/o subdural hematoma, SAH, STEMI and multiple recurrent hospitalizations, who presents to the ER with the complaint of "not feeling right, like my breathing is getting harder". He had initially presented to the ER earlier this week with similar complaints, but states that since then they have worsened. He feels that he cannot take more than a few steps without becoming short of breath, feels a chest heaviness a lthough denies any current chest pain, and has been needing to sleep sitting upright in a recliner more so than in bed in the past week. He feels that he has gained 10 to 15 pounds in the past few days. His typical weight is 440 pounds, and reports that he "thinks his weighed him and was 450, or 455 pounds". He also admits to having a cough with sputum production, denies hemoptysis, cannot comment on the color of sputum. His manages all his medications and he believes that he did not take any of his morning meds today. He cannot say for sure if he has been totally compliant in the past few days with his medications because he has not been feeling himself. His bowels are not moving, last BM was 2 days ago and has been struggling with intermittent constipation. He reports that his appetite has been not as good as normal. He uses a walker and a cane to help with ambulation. He reports that there is some swelling in his upper legs and his abdomen more so today than it was about a week ago. He is still smoking 1 pack of cigarettes daily and is requesting a nicotine patch if he is admitted. His O2 sats are 92 to 94% on room air while sitting and talking with him at bedside, CXR is negative, EKG is negative. Breath sounds on exam exhibit significant expiratory wheeze throughout. Difficult to say whether his legs are swollen due to body habitus currently. Attending at bedside states that his edema compared to his last admission seems to be slightly improved, however he is still swollen. Principal Diagnosis Acute COPD exacerbation Acute on chronic diastolic CHF Discharge Exam Ambulating in room independently with assistance of cane On exam--Breathing comfortably on room air, wheezing has resolved. Lower extremity with no edema but with excoriations. Please appears well, no acute distress Discharge Data Allergies Allergy/AdvReac Type Severity Reaction Status Date / Time cefepime Allergy Intermediate rash Verified 02/14/22 17:38 daptomycin Allergy Intermediate rash Verified 02/14/22 17:38 fentanyl Allergy Intermediate RASH/HIVES/SKIN Verified 02/14/22 17:38 REDNESS naloxone AdvReac Severe extremely Verified 02/14/22 17:38 sick acetaminophen [From Tylenol] AdvReac Intermediate IRRITATES Verified 02/14/22 17:38 & UPSET STOMACH ibuprofen AdvReac Intermediate Nausea Verified 02/14/22 17:38 valproic acid AdvReac Intermediate PANCREATITS Verified 02/14/22 17:38 Consultations 02/19/22 13:59 ED Decision to Admit Stat 02/21/22 10:47 Consult Urology Routine Hospital Course (1) Acute exacerbation of chronic obstructive pulmonary disease: (2) Acute on chronic heart failure with preserved ejection fraction: (3) Tobacco dependence due to cigarettes: -Nicotine patch ordered (4) 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: (5) Pulmonary embolism: (6) Constipation: Mr Stanton Milner is a 51 year old man with morbid obesity (BMI 58), chronic diastolic CHF, COPD on home oxygen at bedtime and PRN, current 1 ppd smoker and remaining PMHx per H&P presented to ER 02/19 due to "not feeling well" and shortness of breath. Upon admission, he was noted to have wheezing and was admitted for COPD exacerbation. He was placed on IV steroids and nebulizers. While here, he was also placed on IV lasix 40mg BID. With treatment his breathing improved and wheezing resolved. He was counseled on smoking cessation but does not feel ready due to feeling overwhelmed with his many chronic medical issues. While here, he complained of night time urinary incontinence while being on lasix and sometimes with difficulty urinating. He had post void residual bladder scans which did not reveal urinary retention. He was seen by Urology whom he is well known to and will follow up with them in the office. Of note, patient has many chronic medical issues that he needs to follow up with his primary care physician for appropriate outpatient referrals. Of note also, he had acute on chronic constipation and reportedly did not have a BM in over 1 week prior to coming to the hospital. His miralax was increased to BID, he received an enema and suppository. He eventually had a large BM while in the hospital. Patient was medically stable for discharge but his discharge was delayed due to personal/family problems. On the evening of 02/23 he requested to be discharged and his daughter came to pick him up. He was in stable condition at the time of discharge. Total Time Total Time Spent Total Time Spent (In Minutes): 40 Discharge Plan Discharge Items Patient Disposition: Home - Self-Care Reason For Visit: SHORTNESS OF BREATH, CHF VS COPD EXACERBATION Discharge Diagnosis: Acute COPD exacerbation Acute on chronic diastolic CHF Condition on Discharge: Fair Health Concerns: Smoking cessation Ongoing weight loss efforts Follow up with Urology for urinary issues Follow up with Bariatric surgeon Activity: Resume your previous activity Weightbearing: Full weightbearing Non-emergency contact: Primary Care Provider, Surgeon and Urologist Call non-emergency contact if: you have any medication questions and your symptoms worsen Follow-up/Referrals: Roberto Askew MD [Primary Care Provider] - Diet: Carb Consistent or DM2 and Heart Healthy Fluids: 1800ml (7 cups) Addtl Attending Provider Instructions: You were admitted for shortness of breath, found to have wheezing on exam You were admitted for acute COPD exacerbation which is likely due to your ongoing smoking You also received IV lasix here and can resume your home lasix and metolazone dose at discharge You were seen by Urology here for urinary incontinence, please follow up with your Urologist after discharge You had many concerns regarding your chronic medical issues (ventral hernia, arthritis, etc), please follow up with your primary care doctor to discuss Pending Studies at Discharge: No Stand-Alone Forms: My [facility] [employer], Smoking Cessation Medications and DC Order Prescriptions: New nicotine [Nicoderm CQ] 21 mg/24 hr Patch 24 Hour 21 mg transdermal QAM 30 Days Qty: 30 RF: 0 diclofenac sodium [Voltaren Arthritis Pain] 1 % Gel 1 ea EXT BID PRN (Reason: pain) 14 Days Qty: 4 RF: 0 Continued polyethylene glycol 3350 [Miralax] 17 gram powder in packet 17 g PO QAM RF: 0 nitroglycerin [Nitrostat] 0.4 mg tablet, sublingual 0.4 mg Sublingual DIRECTED PRN (Reason: CHEST PAIN) RF: 0 nystatin 100,000 unit/gram Powder 1 applic TOPICAL TID PRN (Reason: Skin Irritation) RF: 0 cyclobenzaprine 10 mg Tablet 10 mg PO BID PRN (Reason: Muscle Spasm) RF: 0 ipratropium-albuterol 0.5 mg-3 mg(2.5 mg base)/3 mL Solution For Nebulization 3 ml INHALATION Q6H PRN (Reason: Shortness Of Breath Or Wheezing) RF: 0 docusate sodium 100 mg Capsule 100 mg PO BID RF: 0 duloxetine 60 mg capsule,delayed release(DR/EC) 60 mg PO DAILY RF: 0 famotidine 20 mg tablet 20 mg PO DAILY RF: 0 fluticasone propionate 50 mcg/actuation spray,suspension 2 spray Intranasal DAILY RF: 0 aspirin [Ecotrin Low Strength] 81 mg tablet,delayed release (DR/EC) 81 mg PO QAM RF: 0 Spiriva with HandiHaler 18 mcg capsule, w/inhalation device 1 puff inhalation QAM RF: 0 finasteride 5 mg tablet 5 mg PO QAM RF: 0 tamsulosin [Flomax] 0.4 mg Capsule 0.4 mg PO QAM RF: 0 metoprolol succinate 50 mg Tablet Extended Release 24 Hr 75 mg PO BID RF: 0 spironolactone 25 mg Tablet 25 mg PO QAM RF: 0 atorvastatin 80 mg tablet 80 mg PO QPM RF: 0 sennosides [senna] 8.6 mg Tablet 8.6 mg PO DAILY PRN (Reason: Constipation) RF: 0 folic acid 1 mg Tablet 1 mg PO QAM RF: 0 furosemide [Lasix] 40 mg tablet 40 mg PO BID RF: 0 lorazepam 0.5 mg tablet 0.5 mg PO Q8 PRN (Reason: Anxiety) RF: 0 potassium chloride 20 mEq Tablet Extended Release 20 meq PO BID RF: 0 albuterol sulfate 90 mcg/actuation Hfa Aerosol Inhaler 2 puff INHALATION Q4 PRN (Reason: Dyspnea) RF: 0 omeprazole 20 mg Capsule,Delayed Release(Dr/Ec) 20 mg PO DAILYBB RF: 0 gabapentin 800 mg tablet 800 mg PO TID RF: 0 buprenorphine HCl 8 mg tablet, sublingual 8 mg SUBLINGUAL TID RF: 0 glipizide 10 mg tablet 10 mg PO BID RF: 0 insulin glargine [Lantus Solostar U-100 Insulin] 100 unit/mL (3 mL) Insulin Pen 50 unit SC HS 30 Days Qty: 15 RF: 3 urea [Ureacin-20] 20 % Cream 1 applic TOPICAL BID RF: 0 magnesium oxide 400 mg (241.3 mg magnesium) tablet 400 mg PO DAILY RF: 0 ferrous sulfate 325 mg (65 mg iron) Tablet 325 mg PO QAM RF: 0 hydroxyzine HCl 25 mg Tablet 25 mg PO QID PRN (Reason: Anxiety) RF: 0 insulin aspart U-100 [Novolog Flexpen U-100 Insulin] 100 unit/mL (3 mL) Insulin Pen 1 unit SUBCUT TIDM RF: 0 ondansetron HCl 4 mg Tablet 4 mg PO Q8H PRN (Reason: NAUSEA/VOMITING) RF: 0 benzonatate 100 mg Capsule 100 mg PO TID PRN (Reason: cough) Qty: 10 RF: 0 metolazone 2.5 mg tablet 2.5 mg PO UD Qty: 12 RF: 1 warfarin 5 mg tablet 2.5 - 5 mg PO DIRECTED Qty: 0 RF: 0 Lactinex 1 million cell tablet,chewable 1 tab PO TID Qty: 30 RF: 0 isosorbide dinitrate 30 mg tablet 30 mg PO DAILY RF: 0 Discharge Orders: Discharge Order (Routine); Ordered 02/23/22 Ordered By: Merle Pickering/Other Patient Handouts: Managing Type 2 Diabetes Admission Data Admit Date/Time: 02/19/22 14:20 Attending Provider: Merle Musa Admit Provider: Billy Mills Primary Care Provider: Roberto Askew Other Providers: Billy Mills ; Luan Barth Other Interventions: Discharge Summary Assessment (RN) Last Done: 02/23/22 18:25
--- NOTE | 2022-02-25 10:15 | Electrocardiogram Report ---
Test Reason : Blood Pressure : / mmHG Vent. Rate : 075 BPM Atrial Rate : 075 BPM P-R Int : 148 ms QRS Dur : 110 ms QT Int : 380 ms P-R-T Axes : 101 025 046 degrees QTc Int : 424 ms Poor data quality, interpretation may be adversely affected Normal sinus rhythm Incomplete right bundle branch block When compared with ECG of 19-FEB-2022 11:35, No significant change was found Confirmed by Shaquille Canales ([id number]) on 02/25/2022 10:14:56 AM Referred By: REFERRED SELF Confirmed By:Shaquille Canales
== END 2022-02-23 20:00 | disposition home or self-care (01) | DRG 291 ==
LOC: ED 11:30 → SUATTDRO 14:20 → EDINP 14:20 → 2W 15:30

== ENCOUNTER 2022-04-07 16:20 | Inpatient (IN) ==
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
--- NOTE | 2022-04-07 17:32 | XRay Report ---
SINGLE VIEW CHEST CLINICAL HISTORY: Dyspnea. Atypical chest pain. FINDINGS: 2 AP, portable, upright chest radiographs compared to study dated 03/31/2022. The examinatio n is degraded by portable technique and apical lordotic positioning. The heart is enlarged. There is mild pulmonary vascular congestion. Scarring/atelectasis is noted at the lung bases. No large pleural effusion or pneumothorax is seen. The skeletal structures are osteopenic. There is chronic posttraum atic deformity of the left clavicle. IMPRESSION: 1. Cardiomegaly with mild pulmonary vascular congestion. 2. No airspace consolidation or large pleural effusion is identified. ACT 112: Negative or not required by law. Electronically signed by: Misael Lopez M.D. 04/07/2022 5:31 PM
[2022-04-07 18:00] LABS: Basophils # (auto) 0.07 K/uL (0-0.2); Basophils % (auto) 0.5 %; Eosinophils # (auto) 0.36 K/uL (0-0.50); Eosinophils % (auto) 2.6 %; Hematocrit (blood only) 41.1 % (40.1-51.0); Hemoglobin 12.9 g/dl (14.0-18.0); Immature Granulocytes # (auto) 0.09 K/uL (0.00-0.02); Immature Granulocytes % (auto) 0.7 %; Lymphocytes # (auto) 2.27 K/uL (1.2-3.4); Lymphocytes % (auto) 16.7 %; Mean Corpuscular Hemoglobin 25.5 pg (25.0-34.0); Mean Corpuscular Hgb Conc 31.4 g/dL (32.0-36.0); Mean Corpuscular Volume 81.4 fL (80.0-100.0); Mean Platelet Volume 10.2 fL (9.4-12.4); Monocytes # (auto) 0.69 K/uL (0.24-0.82); Monocytes % (auto) 5.1 %; Neutrophils # (auto) 10.15 K/uL (1.4-6.5); Neutrophils % (auto) 74.4 %; Platelet Count 252 K/uL (130-400); RDW Coefficient of Variation 17.3 % (11.5-14.5); RDW Standard Deviation 50.2 fL (36.4-46.3); Red Blood Count 5.05 M/uL (4.63-6.08); White Blood Count 13.63 K/ul (4.8-10.8)
[2022-04-07 18:10] LABS: INR 3.5 (0.9-1.1); Prothrombin Time 34.7 Seconds (9.0-12.0)
[2022-04-07 18:21] LABS: Alanine Aminotransferase 9 U/L (7-52); Albumin Level 3.5 gm/dl (3.4-5.0); Alkaline Phosphatase 120 U/L (34-104); Anion Gap 3 (3-11); Aspartate Aminotransferase 10 U/L (13-39); BUN Creatinine Ratio 9.2 (10-20); Bilirubin Direct 0.1 mg/dl (0-0.2); Bilirubin,Total 0.7 mg/dl (0.2-1.0); Blood Urea Nitrogen 8 mg/dl (6-23); Calcium 8.7 mg/dl (8.5-10.1); Carbon Dioxide 33 mmol/L (21-32); Chloride 102 mmol/L (98-107); Est GFR (African American) 115.8 ml/min; Est GFR (Non-African American) 99.9 ml/min; Glucose 130 mg/dl (70-99(Fasting)); Sodium 138 mmol/L (136-145); Total Protein 6.7 gm/dl (6.0-8.3)
[2022-04-07 18:27] LABS: Troponin I High Sensitivity 2.8 pg/ml (0-20)
[2022-04-07] MEDS ORDERED: FUROSEMIDE 40 MG/4 ML VIAL IV ONE (19:31)
[2022-04-07] MEDS ORDERED: ACETAMINOPHEN 1,000 MG/100 ML VIAL IV STA (19:31)
[2022-04-07] MEDS ORDERED: POLYETHYLENE (MIRALAX) 17 GM PACK PO PRN (21:58)
[2022-04-07] MEDS ORDERED: ALBUT/IPRATROP 3MG/0.5MG NEB 3 ML VIAL INH PRN (21:58)
[2022-04-07] MEDS ORDERED: ALBUTEROL HFA 8 GM INHALER INH PRN (21:58)
[2022-04-07] MEDS ORDERED: hydrOXYzine HCl 25 MG TAB PO PRN (21:58)
[2022-04-07] MEDS ORDERED: NYSTATIN POWDER 15GM BTL EXT PRN (21:58)
[2022-04-07] MEDS ORDERED: ACETAMINOPHEN 1000 MG/100 ML IV IV PRN (21:58)
[2022-04-07] MEDS ORDERED: NITROGLYCERIN SL 0.4 MG/TAB TAB SL PRN ×2 (21:58)
[2022-04-07] MEDS ORDERED: SENNA 8.6 MG TAB PO PRN (21:58)
[2022-04-07] MEDS ORDERED: BENZONATATE 100 MG CAPSULE PO PRN (21:58)
[2022-04-07] MEDS ORDERED: ONDANSETRON 4 MG OD TAB PO PRN (22:22)
[2022-04-07] MEDS: INSULIN ASPART PER UNIT SC SCH (22:40)
[2022-04-07] MEDS ORDERED: GLUCOSE 10 TAB/TUBE PO PRN (22:45)
[2022-04-07] MEDS ORDERED: GLUCAGON FOR INJ 1 MG VIAL IM PRN (22:45)
[2022-04-07] MEDS ORDERED: DEXTROSE 50% 50 ML SYRINGE IV PRN (22:45)
[2022-04-07] MEDS ORDERED: CARBOHYDRATES FOR HYPOGLYCEMIA PO PRN (22:45)
[2022-04-07] MEDS ORDERED: GLUCOSE 40% GEL 15 GM TUBE PO PRN (22:45)
[2022-04-07] MEDS ORDERED: HYDROmorphone INJ 0.5 MG/0.5 ML SYR IV STA (22:51)
--- NOTE | 2022-04-07 23:20 | History and Physical Report ---
DATE OF ADMISSION: 04/07/2022. CHIEF COMPLAINT: Chest pain, shortness of breath. HISTORY OF PRESENT ILLNESS: This is a 51-year-old male with a past medical history significant for diabetes type 2; hypertension; history of PE, on Coumadin; diastolic CHF; chronic back pain; chronic pain , history of COPD, history of urinary retention, currently Lloyd catheter is taken out; history of depression; history of anxiety; history of subdural hematoma; history of ST elevated OH and multiple recurrent hospitalizations for similar problems. Again, comes because of his feeling of chest pains, headaches. He says he gained about 20 pounds in this month and in last week gained about 10 pounds. He says he is compliant with taking his medications, compliant with not using salt. Because of his ongoing symptoms, he came to the ER. He says he was also in the ER recently for complaining of bleeding from his left ear. Denies using any Q-tips or any foreign body in his ear. He was given eardrops. The patient says he still has some bleeding in the left ear. He also is saying his right eye is blurred since bleeding of left ear last . Ambulates with a cane, but not ambulating much, just goes to the bathroom and comes back. Still smoking one pack of cigarettes daily. No runny nose, no sore throat. Has some cough. Appetite is okay. Has shortness of breath on exertion. No nausea, no abdominal pain. Somewhat constipated. He says since his catheter was taken out, he is still having trouble peeing and he wants to see urology. Currently resting comfortably. Uses oxygen 4 liters while sleeping. Hemodynamically stable. ALLERGIES: CEFEPIME, DAPTOMYCIN, FENTANYL, NALOXONE, TYLENOL, IBUPROFEN, VALPROIC ACID. PAST MEDICAL HISTORY: As mentioned above. PAST SURGICAL HISTORY: Appendectomy, colonoscopy, EGDs, foot surgery, lumbar laminectomy. MEDICATIONS: The patient is on albuterol 2 puffs inhalation q. 4 hours p.r.n., aspirin 81 mg p.o. a.m., atorvastatin 80 mg p.o. a.m., benzoate 100 mg p.o. t.i.d. p.r.n., buprenorphine 8 mg sublingual t.i.d., ciprofloxacin ear drops daily for 7 days, started on 04/01/2022, cyclobenzaprine 10 mg p.o. b.i.d. p.r.n., Colace 100 mg p.o. b.i.d., duloxetine 60 mg p.o. daily, famotidine 20 mg p.o. daily, ferrous sulfate 325 mg p.o. a.m., finasteride 5 mg p.o. a.m., Flonase 2 sprays intranasal daily p.r.n., folic acid 1 mg p.o. a.m., Lasix 40 mg p.o. b.i.d., gabapentin 800 mg p.o. t.i.d., glipizide 10 mg p.o. b.i.d., hydroxyzine 25 mg p.o. q.i.d. p.r.n., NovoLog FlexPen subcutaneous t.i.d. with meals, Lantus 50 units daily, DuoNebs p.r.n., isosorbide dinitrate 30 mg p.o. daily, Lactinex 1 tablet p.o. t.i.d., lorazepam 0.5 mg p.o. q. 8 hours p.r.n., magnesium oxide 400 mg p.o. daily, metolazone 2.5 mg 3 times a week, metoprolol succinate 75 mg p.o. b.i.d., Mucinex tablets 2 tablets p.o. b.i.d., nitroglycerin 0.4 mg sublingual p.r.n., nystatin topical t.i.d. p.r.n., omeprazole 20 mg p.o. daily, Zofran 4 mg p.o. t.i.d. p.r.n., MiraLax 17 g p.o. daily, potassium chloride 20 mEq p.o. b.i.d., Senokot 8.6 mg p.o. daily p.r.n., Spiriva inhaler 1 puff inhalation daily, spironolactone 25 mg p.o. a.m., Flomax 0.8 mg p.o. a.m., urea topical b.i.d. p.r.n., warfarin 2.5 mg as directed. FAMILY HISTORY: Significant for father of heart disease and [place], Sister has breast cancer SOCIAL HISTORY: Smokes one pack of cigarettes daily. Denies alcohol use, denies drug use currently. REVIEW OF SYSTEMS: As per HPI. Rest of the review of systems is negative. PHYSICAL EXAMINATION: GENERAL: The patient is morbidly obese, not in acute distress. VITAL SIGNS: Temperature 36.8, pulse 70, respiratory rate 20, blood pressure 126/69, oxygen 99% on 4 liters. HEENT: Pupils equal, round and reactive to light. Oral mucosa dry. Left ear, some blood seen outside the eardrum. NECK: No JVD, no neck masses. CARDIOVASCULAR: S1 and S2 heard, regular rate and rhythm. No murmur, no gallop. RESPIRATORY SYSTEM: Normal AP diameter. No accessory muscle use. No wheezing. No crackles. ABDOMEN: Soft, bowel sounds present, nontender, no distention. CENTRAL NERVOUS SYSTEM: Cranial nerves II through XII grossly intact, nonfocal. EXTREMITIES: Bilateral gross lower extremity edema present with chronic skin changes seen. LABORATORY DATA: WBC 13.6, hemoglobin 12.9, hematocrit 41.1, platelets 252. PTT 34.7, INR 3.5. Sodium 138, potassium 4, chloride 102, bicarbonate 33, BUN 8, creatinine 0.8, serum glucose 130, calcium 8.7, magnesium 2, total bilirubin 0.7, direct bilirubin 0.1, AST 10, ALT 9, alkaline phosphatase 120. Ammonia 116. Troponin 1 high sensitivity 2.8. BNP 75. SARS-CoV-2 rapid test negative. IMAGING DATA: Chest x-ray: Cardiomegaly with mild pulmonary vascular congestion. No airspace consolidation or large pleural effusion identified. EKG: Normal sinus rhythm at a rate of 69, no acute ST changes seen. ASSESSMENT AND PLAN: This is a 51-year-old male who presents with chest pain and shortness of breath. 1. Chest pain: The patient has recurrent chest pains, EKG, and troponins are unremarkable. Follow the serial enzymes. Consult cardiology in the a.m. N.p.o. after midnight. Repeat echo as per Cardiology. 2. Gbias-fu-ujwaket diastolic congestive heart failure: Will place him on IV Lasix 40 b.i.d. Daily weights, I's and O's. Echo as per cardiology. Consult cardiology in the a.m. 3. Left ear bleeding: The patient is on Coumadin. Will follow CT of the head. Consult ENT. 4. Right eye blurriness: Could be from his diabetes. Will consult ophthalmology while in the hospital. 5. Urinary retention: No longer on Lloyd. Wants to see urologist. 6. Diabetes: Continue his Lantus. Placed on insulin sliding scale. Hold glipizide. Follow the blood sugars, follow HbA1c levels. 7. Morbid obesity: Needs counseling. 8. Nocturnal hypoxia: On 4 liters at night while sleeping. 9. Benign prostatic hypertrophy: Continue his Flomax. 10. History of pulmonary embolism: On Coumadin. INR 3.5. Holding Coumadin because of the bleed in the left ear. Follow the PT/INR. 11. Constipation: Stool softeners. 12. Ongoing tobacco abuse: Needs counseling. Nicotine patch patient in the hospital. 13. History of chronic obstructive pulmonary disease, stable: Continue home inhalers. 14. Chronic back pain: Continue his home pain medications. He wants to be on IV Tylenol b.i.d. p.r.n. while in the hospital. 15. History of coronary artery disease: Continue aspirin, statin, b nasim and nitrate. 16. Deep venous thrombosis prophylaxis: INR 3.5. DISPOSITION: Admit to tele floor. PT/OT prior to discharge. Social service to help with discharge planning. Level 1 full code. Job ID: [id number] MTDD
[2022-04-07] MEDS: buprenorphine HCL 8 MG SUBL SL SCH (23:48)
[2022-04-07] MEDS: LANTUS PER UNIT CHARGE SQ SCH (23:48)
[2022-04-07] MEDS: NICOTINE 21 MG/24 HR TDSY TD SCH (23:49)
[2022-04-07] MEDS: POTASSIUM CHLORIDE CRTAB 20 MEQ TABCR PO SCH (23:50)
[2022-04-07] MEDS: DOCUSATE SODIUM 100 MG CAP PO SCH (23:51)
[2022-04-07] MEDS: CIPROFLOXACIN HCL 0.3% OP SOLN 2.5 ML BTL OTL SCH (23:51)
[2022-04-07] MEDS: ATORVASTATIN 40 MG TAB PO SCH (23:51)
[2022-04-07] MEDS: METOPROLOL SUCC 25MG EXT REL TAB PO SCH (23:52)
[2022-04-07] MEDS: ADVANCED PROBIOTIC 1250 MG CAPSULE PO SCH (23:53)
[2022-04-07] MEDS: GABAPENTIN 800 MG TAB PO SCH (23:53)
[2022-04-07] MEDS: guaiFENesin 600 MG TABCR PO SCH (23:55)
[2022-04-08] MEDS: PANTOprazole 40 MG TAB PO SCH (05:50)
[2022-04-08 05:53] LABS: Basophils # (auto) 0.08 K/uL (0-0.2); Basophils % (auto) 0.6 %; Eosinophils # (auto) 0.52 K/uL (0-0.50); Eosinophils % (auto) 4.1 %; Hematocrit (blood only) 39.5 % (40.1-51.0); Hemoglobin 12.6 g/dl (14.0-18.0); Immature Granulocytes # (auto) 0.05 K/uL (0.00-0.02); Immature Granulocytes % (auto) 0.4 %; Lymphocytes # (auto) 3.45 K/uL (1.2-3.4); Lymphocytes % (auto) 26.9 %; Mean Corpuscular Hemoglobin 26.1 pg (25.0-34.0); Mean Corpuscular Hgb Conc 31.9 g/dL (32.0-36.0); Monocytes # (auto) 0.92 K/uL (0.24-0.82); Monocytes % (auto) 7.2 %; Neutrophils % (auto) 60.8 %; Platelet Count 245 K/uL (130-400); RDW Coefficient of Variation 17.2 % (11.5-14.5); RDW Standard Deviation 50.4 fL (36.4-46.3); Red Blood Count 4.82 M/uL (4.63-6.08); White Blood Count 12.82 K/ul (4.8-10.8)
[2022-04-08 06:06] LABS: INR 2.9 (0.9-1.1); Prothrombin Time 29.1 Seconds (9.0-12.0)
[2022-04-08 06:20] LABS: BUN Creatinine Ratio 10.1 (10-20); Creatinine Clr Calc Pharmacy 178.4 ml/min; Est GFR (African American) 114.7 ml/min; Potassium 4.3 mmol/L (3.5-5.1)
[2022-04-08 06:56] LABS: Estimated Average Glucose 166 mg/dl; Hemoglobin A1C 7.4 % (4.5-5.6)
--- NOTE | 2022-04-08 07:46 | CT Scan Report ---
CT head/brain wo con CLINICAL HISTORY: bleeding from the left ear. on coumadin COMPARISON STUDY: 11/26/2021 CT DOSE: 687.98 mGy.cm TECHNIQUE: Standard CT of the Brain was performed without IV contrast. A dose lowering technique was utilized adhering to the principles of ALARA. FINDINGS: Extraaxial space: There is no evidence for subdural hematoma. There are no extra-axial fluid collecti ons. Ventricles and cisterns: The ventricles are normal in size and configuration. There is no evidence fo r midline shift or mass effect. Parenchyma: There is no subarachnoid or intraparenchymal hemorrhage. There is no evidence for an acut e infarct or cerebral edema. There is homogeneous attenuation of the brain parenchyma. There are no g ross mass lesions. Osseous structures: There is no evidence for an acute fracture. There is prominent mucosal thickening present involving the frontal sinuses bilaterally, right greater than left, the ethmoid sinuses bila terally, right greater than left, the maxillary antra bilaterally, right greater than left and the ri ght sphenoid sinus. No fluid is seen in the external auditory canals. There is mild mucosal thickenin g of the mastoid air cells on the left when compared to the right. Soft tissues: There is no evidence for focal soft tissue swelling. IMPRESSION: 1. No acute intracerebral pathology. 2. Pansinusitis. 3. Mild left mastoiditis. 4. No fluid within the external auditory canals bilaterally. ACT 112: Negative or not required by law. Electronically signed by: Sandip Chawla M.D. 04/08/2022 7:44 AM
[2022-04-08] MEDS: buprenorphine HCL 8 MG SUBL SL SCH ×3 (08:36→22:04)
[2022-04-08] MEDS: ADVANCED PROBIOTIC 1250 MG CAPSULE PO SCH ×3 (08:37→21:58)
[2022-04-08] MEDS: guaiFENesin 600 MG TABCR PO SCH ×2 (08:37→21:58)
[2022-04-08] MEDS: FOLIC ACID 1 MG TAB PO SCH (08:38)
[2022-04-08] MEDS: ASPIRIN 81 MG ECTAB PO SCH (08:38)
[2022-04-08] MEDS: DULoxetine HCL 60 MG CAP PO SCH (08:38)
[2022-04-08] MEDS: FUROSEMIDE 40 MG/4 ML VIAL IV SCH ×2 (08:38→21:36)
[2022-04-08] MEDS: SPIRONOLACTONE 25 MG TAB PO SCH (08:38)
[2022-04-08] MEDS: ISOSORBIDE DINITRATE 10 MG TAB PO SCH (08:39)
[2022-04-08] MEDS: METOPROLOL SUCC 25MG EXT REL TAB PO SCH ×2 (08:40→22:04)
[2022-04-08] MEDS: TAMSULOSIN HCL 0.4 MG CAP PO SCH (08:40)
[2022-04-08] MEDS: GABAPENTIN 800 MG TAB PO SCH ×3 (08:40→21:59)
[2022-04-08] MEDS: FINASTERIDE 5 MG TAB PO SCH (08:41)
[2022-04-08] MEDS: FAMOTIDINE 20 MG TAB PO SCH (08:41)
[2022-04-08] MEDS: MAGNESIUM OXIDE 400 MG TAB PO SCH (08:41)
[2022-04-08] MEDS: FERROUS SULFATE 325 MG TAB PO SCH (08:41)
[2022-04-08] MEDS: POTASSIUM CHLORIDE CRTAB 20 MEQ TABCR PO SCH ×2 (08:42→21:57)
[2022-04-08] MEDS: metOLazone 2.5 MG TABLET PO SCH (08:42)
[2022-04-08] MEDS: NICOTINE 21 MG/24 HR TDSY TD SCH (08:42)
[2022-04-08] MEDS: UMECLIDINIUM BROMIDE 62.5MCG/BLISTER 7 PUFFS/INHALER INH SCH (08:44)
[2022-04-08] MEDS: FLUTICASONE PROPIONATE NA SPR 16 GM BTL SCH (08:44)
[2022-04-08] MEDS: CIPROFLOXACIN HCL 0.3% OP SOLN 2.5 ML BTL OTL SCH (08:45)
[2022-04-08] MEDS: DOCUSATE SODIUM 100 MG CAP PO SCH ×2 (08:46→21:59)
[2022-04-08] MEDS: POLYETHYLENE (MIRALAX) 17 GM PACK PO SCH (08:46)
[2022-04-08] MEDS ORDERED: ACETAMINOPHEN 1000 MG/100 ML IV IV SCH (10:00)
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
[2022-04-08] MEDS: INSULIN ASPART PER UNIT SC SCH ×4 (10:44→21:56)
[2022-04-08] MEDS: ACETAMINOPHEN 1,000 MG/100 ML VIAL IV SCH ×2 (11:31→21:56)
--- NOTE | 2022-04-08 15:21 | Hospitalist Progress Note ---
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 BNP normal. - continue iv lasix 40 bid with metolazone MWF, aldactone, continue daily weight, strict I and O, daily weight - seen by cardio Left ear bleeding a week ago in setting of supratherapeutic INR- coumadin on hold since, now therapeutic. No more bleeding. CT shows no blood but pansinusitis and mild left mastoiditis but no tenderness or clinical symptoms. On ear drops. Monitor. ENT eval pending Right eye blurriness- states for past week since the left ear bleed and has remained stable since ?from DM. Pending ophthal eval. DM-2 with hyperglycemia: A1c 7.4. Continue his Lantus, SSI, hold glipizide Morbid obesity: BMI 61. Recommend weight loss Nocturnal hypoxia: On 4 liters at night while sleeping. continue Benign prostatic hypertrophy with urinary retention: Has remained stable off of fontaine but states struggles with dribbling. Follows urology closely- He was supposed to have cystoscopy today. Discussed with urology who states he will seen soon after discharge in the office. Continue Flomax. History of pulmonary embolism: Coumadin on hold since recent ear bleed, INR 2.9. Resume coumadin likely tomorrow. Tobacco abuse: Nicotine patch, recommend quitting COPD- stable, Continue home inhalers. Chronic back pain: Continue home subutex, cymbalta.continue tylenol CAD- stable, no chest pain, tropx 3 neg. Continue aspirin, statin, b nasim and nitrate. Seen by cardio DVT ppx- coumadin, INR therapeutic Dispo- Transfer to [facility] / [facility]. On iv diuresis for volume optimization Admission and Anticipated Discharge Date Admission Date: April 07, 2022 Subjective He feels okay. States he gained 11 lbs last week alone. States diuresing well with iv lasix. Asking for iv tylenol for pain relief. States he had appointment with uro for cystoscopy today- he struggles with dribbling and would like a private room but does not want to go through fontaine catheterization again. Denies any cough, sputum expectoration, N/V. He states he had bleeding from left ear a week ago and has been off of coumadin since- denies any headache, hearing loss, pain, fever, chills. no more bleeding since. Physical Exam Physical Exam: General: Morbidly obese, sitting comfortably in chair, not in distress, on room air HEENT: EOMI, TIAN, MMM. No sinus tenderness, no tragal or mastoid tenderness on either side, no aural discharge noted Chest: Clear breath sounds bilaterally, no wheezes or crackles CVS: Regular rate and rhythm, normal heart sounds, no murmur Abdomen: Soft, non tender, not distended, normal bowel sounds Neuro: Awake, alert, oriented, conversing well, non focal Extremities: LE edema + Results & Data Results & Data ([facility]) Vital Signs (Past 12 Hours) Vital Signs Temp Pulse Pulse Resp BP Pulse Ox O2 Del Method 04/08/22 11:48 36.9 C 73 18 109/66 99 04/08/22 08:14 62 04/08/22 08:14 Nasal Cannula 04/08/22 08:06 36.8 C 59 L 15 109/70 99 Nasal Cannula 04/08/22 05:10 36.7 C 70 18 171/63 H 95 Nasal Cannula O2 Flow Rate 04/08/22 11:48 04/08/22 08:14 04/08/22 08:14 4 04/08/22 08:06 04/08/22 05:10 3.5 Laboratory Results Short CBC 04/07/22 04/08/22 Range/Units 17:30 05:24 WBC 13.63 H 12.82 H (4.8-10.8) K/ul Hgb 12.9 L 12.6 L (14.0-18.0) g/dl Hct 41.1 39.5 L (40.1-51.0) % Plt Count 252 245 (130-400) K/uL BMP 04/07/22 04/08/22 17:30 05:24 Sodium 138 140 Potassium 4.0 4.3 Chloride 102 102 Carbon Dioxide 33 H 36 H BUN 8 9 Creatinine 0.87 0.89 Glucose 130 H 118 H Calcium 8.7 9.0 Liver Function 04/07/22 Range/Units 17:30 Total Bilirubin 0.7 (0.2-1.0) mg/dl Direct Bilirubin 0.1 (0-0.2) mg/dl AST 10 L (13-39) U/L ALT 9 (7-52) U/L Alkaline Phosphatase 120 H (34-104) U/L Albumin 3.5 (3.4-5.0) gm/dl Diagnostic Findings Head CT 04/07/22 20:47 CT head/brain wo con CLINICAL HISTORY: bleeding from the left ear. on coumadin COMPARISON STUDY: 11/26/2021 CT DOSE: 687.98 mGy.cm TECHNIQUE: Standard CT of the Brain was performed without IV contrast. A dose lowering technique was utilized adhering to the principles of ALARA. FINDINGS: Extraaxial space: There is no evidence for subdural hematoma. There are no extra-axial fluid collections. Ventricles and cisterns: The ventricles are normal in size and configuration. There is no evidence for midline shift or mass effect. Parenchyma: There is no subarachnoid or intraparenchymal hemorrhage. There is no evidence for an acute infarct or cerebral edema. There is homogeneous attenuation of the brain parenchyma. There are no gross mass lesions. Osseous structures: There is no evidence for an acute fracture. There is prominent mucosal thickening present involving the frontal sinuses bilaterally, right greater than left, the ethmoid sinuses bilaterally, right greater than left, the maxillary antra bilaterally, right greater than left and the right sphenoid sinus. No fluid is seen in the external auditory canals. There is mild mucosal thickening of the mastoid air cells on the left when compared to the right. Soft tissues: There is no evidence for focal soft tissue swelling. IMPRESSION: 1. No acute intracerebral pathology. 2. Pansinusitis. 3. Mild left mastoiditis. 4. No fluid within the external auditory canals bilaterally. ACT 112: Negative or not required by law. Electronically signed by: Sandip Chawla M.D. 04/08/2022 7:44 AM Medications Administered Current Inpatient Medications Acetaminophen (Acetaminophen 1000 Mg/100 Ml Iv) 1,000 mg IV BID PRN PRN Reason: Pain or Fever Stop: 04/10/22 21:57 Albuterol (Albuterol Hfa 8 Gm Inhaler) 2 puffs INH Q4H PRN PRN Reason: Dyspnea Stop: 05/07/22 21:57 Albuterol (Albut/Ipratrop 3mg/0.5mg Neb 3 Ml Vial) 3 ml INH Q6H PRN; Protocol PRN Reason: Shortness Of Breath Or Wheezing Stop: 05/07/22 21:57 Aspirin (Aspirin 81 Mg Ectab) 81 mg PO QAM EMPERATRIZ Stop: 05/08/22 08:59 Last Admin: 04/08/22 08:38 Dose: 81 mg Atorvastatin Calcium (Atorvastatin 40 Mg Tab) 80 mg PO QPM EMPERATRIZ Stop: 05/07/22 21:57 Last Admin: 04/07/22 23:51 Dose: 80 mg Benzonatate (Benzonatate 100 Mg Capsule) 100 mg PO TID PRN PRN Reason: cough Stop: 05/07/22 21:57 Buprenorphine HCl (Buprenorphine Hcl 8 Mg Subl) 8 mg SL TID EMPERATRIZ Stop: 05/07/22 21:57 Last Admin: 04/08/22 13:44 Dose: 8 mg Cyclobenzaprine HCl (Cyclobenzaprine Hcl 10 Mg Tab) 10 mg PO BID PRN PRN Reason: Muscle Spasm Stop: 05/07/22 21:57 Dextrose (Dextrose 50% 50 Ml Syringe) 25 - 50 ml IV UD PRN; Protocol PRN Reason: Hypoglycemia Protocol Stop: 05/07/22 22:44 Docusate Sodium (Docusate Sodium 100 Mg Cap) 100 mg PO BID [facility] Stop: 05/07/22 21:57 Last Admin: 04/08/22 08:46 Dose: 100 mg Duloxetine HCl (Duloxetine Hcl 60 Mg Cap) 60 mg PO DAILY EMPERATRIZ Stop: 05/08/22 08:59 Last Admin: 04/08/22 08:38 Dose: 60 mg Famotidine (Famotidine 20 Mg Tab) 20 mg PO DAILY [facility] Stop: 05/08/22 08:59 Last Admin: 04/08/22 08:41 Dose: 20 mg Ferrous Sulfate (Ferrous Sulfate 325 Mg Tab) 325 mg PO QAM EMPREATRIZ Stop: 05/08/22 08:59 Last Admin: 04/08/22 08:41 Dose: 325 mg Finasteride (Finasteride 5 Mg Tab) 5 mg PO QAM EMPERATRIZ Stop: 05/08/22 08:59 Last Admin: 04/08/22 08:41 Dose: 5 mg Fluticasone Propionate (Fluticasone Propionate Na Spr 16 Gm Btl) 2 sprays NA DAILY [facility] Stop: 05/08/22 08:59 Last Admin: 04/08/22 08:44 Dose: 2 sprays Folic Acid (Folic Acid 1 Mg Tab) 1 mg PO QAM [facility]MPERATRIZ Stop: 05/08/22 08:59 Last Admin: 04/08/22 08:38 Dose: 1 mg Furosemide (Furosemide 40 Mg/4 Ml Vial) 40 mg IV BIDM EMPERATRIZ Stop: 05/08/22 08:59 Last Admin: 04/08/22 08:38 Dose: 40 mg Gabapentin (Gabapentin 800 Mg Tab) 800 mg PO TID [facility] Stop: 05/07/22 21:57 Last Admin: 04/08/22 13:45 Dose: 800 mg Glucagon (Glucagon For Inj 1 Mg Vial) 1 mg IM UD PRN; Protocol PRN Reason: Hypoglycemia Protocol Stop: 05/07/22 22:44 Glucose (Glucose 40% Gel 15 Gm Tube) 15 - 30 gm PO UD PRN; Protocol PRN Reason: Hypoglycemia Protocol Stop: 05/07/22 22:44 Glucose (Glucose 10 Tab/Tube) 4 - 8 tab PO UD PRN; Protocol PRN Reason: Hypoglycemia Protocol Stop: 05/07/22 22:44 Guaifenesin (Guaifenesin 600 Mg Tabcr) 1,200 mg PO BID [facility] Stop: 05/07/22 21:57 Last Admin: 04/08/22 08:37 Dose: 1,200 mg Hydroxyzine HCl (Hydroxyzine Hcl 25 Mg Tab) 25 mg PO QID PRN PRN Reason: Anxiety Stop: 05/07/22 21:57 Acetaminophen (Ofirmev) 1,000 mg in 100 mls @ 400 mls/hr IV BID [facility] Stop: 04/11/22 09:59 Last Infusion: 04/08/22 11:58 Dose: Infused Insulin Aspart (Insulin Aspart Per Unit) 0 units SC ACHS [facility] Stop: 05/07/22 21:57 Last Admin: 04/08/22 12:22 Dose: 13 units Insulin Glargine (Lantus Per Unit Charge) 50 units SQ HS [facility] Stop: 05/07/22 21:57 Last Admin: 04/07/22 23:48 Dose: 50 units Isosorbide Dinitrate (Isosorbide Dinitrate 10 Mg Tab) 30 mg PO DAILY [facility] Stop: 05/08/22 08:59 Last Admin: 04/08/22 08:39 Dose: 30 mg Lactobacillus Acidophilus (Advanced Probiotic 1250 Mg Capsule) 1 cap PO TID [facility] Stop: 05/07/22 21:57 Last Admin: 04/08/22 13:45 Dose: 1 cap Lorazepam (Lorazepam 0.5 Mg Tab) 0.5 mg PO Q8 PRN PRN Reason: Anxiety Stop: 05/07/22 21:57 Magnesium Oxide (Magnesium Oxide 400 Mg Tab) 400 mg PO DAILY [facility] Stop: 05/08/22 08:59 Last Admin: 04/08/22 08:41 Dose: 400 mg Metolazone (Metolazone 2.5 Mg Tablet) 2.5 mg PO MoWeFr@0900 [facility] Stop: 05/08/22 08:59 Last Admin: 04/08/22 08:42 Dose: 2.5 mg Metoprolol Succinate (Metoprolol Succ 25mg Ext Rel Tab) 75 mg PO BID [facility] Stop: 05/07/22 21:57 Last Admin: 04/08/22 08:40 Dose: 75 mg Miscellaneous (Urea 20 % Cream - Order Awaiting Action) 1 each N/A QS [facility] Stop: 05/08/22 00:00 Last Admin: 04/08/22 08:47 Dose: Not Given Miscellaneous (Remove Nicoderm Patch) 1 each N/A DAILY@0859 [facility] Stop: 05/08/22 08:58 Last Admin: 04/08/22 08:47 Dose: 1 each Miscellaneous (Carbohydrates For Hypoglycemia ) 15 - 30 gm PO UD PRN PRN Reason: Hypoglycemia Treatment Stop: 05/07/22 22:44 Nicotine (Nicotine 21 Mg/24 Hr Tdsy) 21 mg TD DAILY [facility] Stop: 05/07/22 21:57 Last Admin: 04/08/22 08:42 Dose: 21 mg Nitroglycerin (Nitroglycerin Sl 0.4 Mg/Tab Tab) 0.4 mg SL UD PRN PRN Reason: Chest Pain Stop: 05/07/22 21:57 Nystatin (Nystatin Powder 15gm Btl) 1 appln EXT TID PRN PRN Reason: Skin Irritation Stop: 05/07/22 21:57 Ondansetron HCl (Ondansetron 4 Mg Od Tab) 4 mg PO Q8H PRN PRN Reason: NAUSEA/VOMITING Stop: 05/07/22 22:21 Pantoprazole Sodium (Pantoprazole 40 Mg Tab) 40 mg PO DAILYBB [facility] Stop: 05/08/22 06:29 Last Admin: 04/08/22 05:50 Dose: 40 mg Polyethylene Glycol (Polyethylene (Miralax) 17 Gm Pack) 17 gm PO QAM [facility] Stop: 05/08/22 08:59 Last Admin: 04/08/22 08:46 Dose: 17 gm Potassium Chloride (Potassium Chloride Crtab 20 Meq Tabcr) 20 meq PO BID [facility] Stop: 05/07/22 21:57 Last Admin: 04/08/22 08:42 Dose: 20 meq Sennosides (Senna 8.6 Mg Tab) 8.6 mg PO DAILY PRN PRN Reason: Constipation Stop: 05/07/22 21:57 Spironolactone (Spironolactone 25 Mg Tab) 25 mg PO QAM [facility] Stop: 05/08/22 08:59 Last Admin: 04/08/22 08:38 Dose: 25 mg Tamsulosin HCl (Tamsulosin Hcl 0.4 Mg Cap) [facility] Stop: 05/08/22 08:59 Last Admin: 04/08/22 08:40 Dose: 0.8 mg Umeclidinium [place] (Umeclidinium [place] 62.5mcg/Blister 7 Puffs/Inhaler) 1 [facility] Stop: 05/08/22 08:59 Last Admin: 04/08/22 08:44 Dose: 1 puffs (1) COPD (chronic obstructive pulmonary disease) COPD type: COPD with acute exacerbation Qualified Code(s): J44.1 - Chronic obstructive pulmonary disease with (acute) exacerbation
[2022-04-08] MEDS ORDERED: WARFARIN SOD 2.5 MG TAB PO SCH (16:00)
--- NOTE | 2022-04-08 16:38 | Electrocardiogram Report ---
Test Reason : Blood Pressure : / mmHG Vent. Rate : 078 BPM Atrial Rate : 078 BPM P-R Int : 150 ms QRS Dur : 082 ms QT Int : 388 ms P-R-T Axes : 069 025 048 degrees QTc Int : 442 ms Poor data quality, interpretation may be adversely affected Normal sinus rhythm Low voltage QRS Nonspecific ST and T wave abnormality Abnormal ECG When compared with ECG of 31-MAR-2022 21:11, Questionable change in QRS duration Confirmed by Stanton Porter ([id number]) on 04/08/2022 4:38:41 PM Referred By: REFERRED SELF Confirmed By:Stanton Porter
--- NOTE | 2022-04-08 16:40 | Electrocardiogram Report ---
Test Reason : Blood Pressure : / mmHG Vent. Rate : 069 BPM Atrial Rate : 069 BPM P-R Int : 166 ms QRS Dur : 106 ms QT Int : 402 ms P-R-T Axes : 070 026 036 degrees QTc Int : 430 ms Poor data quality, interpretation may be adversely affected Normal sinus rhythm Normal ECG When compared with ECG of 07-APR-2022 16:30, (unconfirmed) Nonspecific T wave abnormality no longer evident in Anterolateral leads Confirmed by Stanton Porter ([id number]) on 04/08/2022 4:40:17 PM Referred By: REFERRED SELF Confirmed By:Stanton Porter
--- NOTE | 2022-04-08 16:46 | Electrocardiogram Report ---
Test Reason : Blood Pressure : / mmHG Vent. Rate : 065 BPM Atrial Rate : 065 BPM P-R Int : 168 ms QRS Dur : 110 ms QT Int : 402 ms P-R-T Axes : 063 047 049 degrees QTc Int : 418 ms Normal sinus rhythm Low voltage QRS Borderline ECG When compared with ECG of 07-APR-2022 19:12, (unconfirmed) No significant change was found Confirmed by Stanton Porter ([id number]) on 04/08/2022 4:46:22 PM Referred By: REFERRED SELF Confirmed By:Stanton Porter
[2022-04-08] MEDS: LANTUS PER UNIT CHARGE SQ SCH (21:56)
[2022-04-08] MEDS: ATORVASTATIN 40 MG TAB PO SCH (21:59)
[2022-04-08] MEDS: LORazepam 0.5 MG TAB PO PRN (22:55)
[2022-04-09] MEDS: PANTOprazole 40 MG TAB PO SCH (05:52)
[2022-04-09 06:47] LABS: Hematocrit (blood only) 38.4 % (40.1-51.0); Hemoglobin 12.1 g/dl (14.0-18.0); Mean Corpuscular Hemoglobin 25.9 pg (25.0-34.0); Mean Corpuscular Hgb Conc 31.5 g/dL (32.0-36.0); Mean Corpuscular Volume 82.2 fL (80.0-100.0); Mean Platelet Volume 10.3 fL (9.4-12.4); Platelet Count 226 K/uL (130-400); RDW Standard Deviation 50.6 fL (36.4-46.3); Red Blood Count 4.67 M/uL (4.63-6.08); White Blood Count 9.96 K/ul (4.8-10.8)
[2022-04-09 07:04] LABS: INR 1.8 (0.9-1.1)
[2022-04-09 07:11] LABS: BUN Creatinine Ratio 9.6 (10-20); Calcium 8.9 mg/dl (8.5-10.1); Creatinine Clr Calc Pharmacy 167.3 ml/min; Est GFR (African American) 108.4 ml/min; Est GFR (Non-African American) 93.5 ml/min; Magnesium 1.9 mg/dl (1.7-2.4); Potassium 4.1 mmol/L (3.5-5.1)
[2022-04-09] MEDS: ENOXAPARIN INJ 40 MG/0.4 ML SYR SQ SCH ×2 (08:21→20:36)
[2022-04-09] MEDS: UMECLIDINIUM BROMIDE 62.5MCG/BLISTER 7 PUFFS/INHALER INH SCH (08:21)
[2022-04-09] MEDS: ISOSORBIDE DINITRATE 10 MG TAB PO SCH (08:22)
[2022-04-09] MEDS: FLUTICASONE PROPIONATE NA SPR 16 GM BTL SCH (08:22)
[2022-04-09] MEDS: NICOTINE 21 MG/24 HR TDSY TD SCH (08:22)
[2022-04-09] MEDS: POLYETHYLENE (MIRALAX) 17 GM PACK PO SCH (08:22)
[2022-04-09] MEDS: guaiFENesin 600 MG TABCR PO SCH ×2 (08:23→20:38)
[2022-04-09] MEDS: POTASSIUM CHLORIDE CRTAB 20 MEQ TABCR PO SCH ×2 (08:23→20:41)
[2022-04-09] MEDS: METOPROLOL SUCC 25MG EXT REL TAB PO SCH ×2 (08:23→20:37)
[2022-04-09] MEDS: GABAPENTIN 800 MG TAB PO SCH ×3 (08:23→20:43)
[2022-04-09] MEDS: DOCUSATE SODIUM 100 MG CAP PO SCH ×2 (08:23→20:40)
[2022-04-09] MEDS: ADVANCED PROBIOTIC 1250 MG CAPSULE PO SCH ×3 (08:23→20:42)
[2022-04-09] MEDS: TAMSULOSIN HCL 0.4 MG CAP PO SCH (08:24)
[2022-04-09] MEDS: FOLIC ACID 1 MG TAB PO SCH (08:24)
[2022-04-09] MEDS: MAGNESIUM OXIDE 400 MG TAB PO SCH (08:24)
[2022-04-09] MEDS: FINASTERIDE 5 MG TAB PO SCH (08:24)
[2022-04-09] MEDS: SPIRONOLACTONE 25 MG TAB PO SCH (08:24)
[2022-04-09] MEDS: FAMOTIDINE 20 MG TAB PO SCH (08:24)
[2022-04-09] MEDS: FERROUS SULFATE 325 MG TAB PO SCH (08:24)
[2022-04-09] MEDS: ASPIRIN 81 MG ECTAB PO SCH (08:24)
[2022-04-09] MEDS: DULoxetine HCL 60 MG CAP PO SCH (08:24)
[2022-04-09] MEDS: FUROSEMIDE 40 MG/4 ML VIAL IV SCH ×3 (08:25→19:00)
[2022-04-09] MEDS: ACETAMINOPHEN 1,000 MG/100 ML VIAL IV SCH ×2 (08:25→20:43)
[2022-04-09] MEDS: INSULIN ASPART PER UNIT SC SCH ×4 (08:29→20:41)
[2022-04-09] MEDS: buprenorphine HCL 8 MG SUBL SL SCH ×3 (08:29→20:40)
--- NOTE | 2022-04-09 11:17 | Cardiology Progress Note ---
Date of Service April 09, 2022 Assessment & Plan (1) Fluid overload: (2) Chronic respiratory failure: (3) RHF (right heart failure): (4) Chest pain: (5) Opioid dependence: (6) Morbid obesity: (7) Low back pain: (8) Pickwickian syndrome: (9) Drug-seeking behavior: Plan Once again, the patient presents with volume overload due to nonadherence to medical regimen, dietary restrictions and outpatient medical follow up cont iv diuresis once catheter is placed follow and replete lytes as necessary strict I/O's daily weights on the same scale continue all other outpatient cardiac meds Admission and Anticipated Discharge Date Admission Date: April 07, 2022 Subjective Patient seen and examined, chart reviewed. States he feels Primus the same since admission. Has is having difficulty with urination and declined evening and a.m. Lasix dosing. For Lloyd catheter placement. Review of Systems Review of Systems: All systems reviewed & are unremarkable except as noted in HPI & below Physical Exam Physical Exam: General: Awake, alert and oriented x 3. No acute distress. Morbidly obese HEENT: Normocephalic, atraumatic. Pupils equal, round and reactive to light and accommodation. Extraocular muscles are intact. Anicteric sclera. Moist mucous membranes. Neck: No JVD. No bruit. Cardiovascular: Regular. Positive S-4. Normal S-1 and S-2. No S-3. No murmurs or rubs. Pulmonary: Clear to auscultation B/L. No rales, rhonchi or wheezing Abdomen: Bowel sounds x 4, soft. No rebound, guarding or tenderness. No organomegaly. Extremities: No clubbing, cyanosis or edema. +2 pedal pulses bilaterally. Skin: Warm and dry. Results & Data ([facility]) Vital Signs (Past 12 Hours) Vital Signs Temp Pulse Pulse Resp BP Pulse Ox O2 Del Method 04/09/22 09:56 61 04/09/22 03:00 36.5 C 61 20 119/65 96 Nasal Cannula 04/09/22 01:19 63 04/09/22 01:09 Nasal Cannula O2 Flow Rate 04/09/22 09:56 04/09/22 03:00 4 04/09/22 01:19 04/09/22 01:09 4 (1) Fluid overload Hypervolemia type: other Qualified Code(s): E87.79 - Other fluid overload (2) Chest pain Chest pain type: other chest pain Qualified Code(s): R07.89 - Other chest pain (3) Low back pain Back pain laterality: unspecified Chronicity: unspecified Sciatica presence: unspecified whether sciatica present Qualified Code(s): M54.5 - Low back pain
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
[2022-04-09] MEDS: SULFAMETHOXAZOLE/TRIMETHOPRIM DS 800/160MG TAB PO SCH ×2 (14:06→20:37)
[2022-04-09] MEDS ORDERED: ACETAMINOPHEN 1000 MG/100 ML IV IV STA (14:39)
[2022-04-09 15:00] LABS: Appearance Urine Clear (Clear); Bacteria Urine Automated Negative (Negative); Bilirubin Urine Negative (Negative); Blood Urine 2+ (Negative); Cast Urine Automated 0 /lpf (0-5); Color Urine Yellow; Epithelial Cell Urine Auto 0-5 /lpf (0-5); Glucose Urine UA Negative (Negative); Ketones Urine Negative (Negative); Leukocyte Esterase Urine Negative (Negative); Nitrite Urine Negative (Negative); Protein Urine Negative (Negative); Specific Gravity Urine 1.005 (1.000-1.030); Urobilinogen Urine Negative (Negative); WBC Urine Automated 0 /hpf (0-5); pH Urine 7.5 (4.5-7.5)
[2022-04-09] MEDS: LORazepam 0.5 MG TAB PO PRN ×2 (15:12→20:40)
[2022-04-09] MEDS ORDERED: WARFARIN SOD 2.5 MG TAB PO ONE (16:00)
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
[2022-04-09] MEDS: WARFARIN SOD 5 MG TAB PO SCH (17:37)
--- NOTE | 2022-04-09 18:41 | Hospitalist Progress Note ---
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 BNP normal. - continue iv lasix 40 bid with metolazone MWF, aldactone, continue daily weight, strict I and O, daily weight - seen by cardio Left ear bleeding a week ago in setting of supratherapeutic INR- coumadin on hold since, now subtherapeutic. No more bleeding. CT shows no blood but pansinusitis and mild left mastoiditis but no tenderness or clinical symptoms. On ear drops. Monitor. Seen by ENT- only some dried blood otherwise unremarkable and no further treatment needed Right eye blurriness- states for past week since the left ear bleed and has remained stable since ?from DM. Pending ophthal eval. DM-2 with hyperglycemia: A1c 7.4. Continue his Lantus, SSI, hold glipizide Morbid obesity: BMI 61. Recommend weight loss Nocturnal hypoxia: On 4 liters at night while sleeping. continue Benign prostatic hypertrophy with urinary retention- seen by uro and placed on fontaine today. recommended to continue fontaine at discharge and OP follow up. Recommended empiric ABx by uro due to difficult catheterization- suspected stricture vs false passag- started on bactrim. Continue Flomax, proscar History of pulmonary embolism: INR 1.8, resumed on coumadin 04/08. Will give higher dose today and recheck INR in am. Continue lovenox for DVT ppx until INR therapeutic. Tobacco abuse: Nicotine patch, recommend quitting COPD- stable, Continue home inhalers. Wheezing likely from fluids- will monitor with diuresis. if worsens, short course of steroid and nebs. Chronic back pain: Continue home subutex, cymbalta.continue tylenol CAD- stable, no chest pain, tropx 3 neg. Continue aspirin, statin, b nasim and nitrate. Seen by cardio DVT ppx- coumadin, lovenox sc Dispo- On iv diuresis for volume optimization Admission and Anticipated Discharge Date Admission Date: April 07, 2022 Subjective Attempts to urinary catheterization last night failed. Seen by uro and had fontaine catheterization placed but was difficult- complaining of pain due to the same and requesting pain medication. he refused lasix last night and this morning as he was not able to void but now getting lasix after fontaine was placed. No fever, chills, nausea, vomiting. No shortness of breath. Physical Exam Physical Exam: General: Morbidly obese, sitting comfortably in chair, not in distress, on room air HEENT: EOMI, TIAN, MMM. No sinus tenderness, no tragal or mastoid tenderness on either side, no aural discharge noted Chest: Clear breath sounds bilaterally with mild wheezes CVS: Regular rate and rhythm, normal heart sounds, no murmur Abdomen: Soft, non tender, not distended, normal bowel sounds Neuro: Awake, alert, oriented, conversing well, non focal Extremities: LE edema + Fontaine in place Results & Data Results & Data ([facility]) Vital Signs (Past 12 Hours) Vital Signs Temp Pulse Pulse Resp BP Pulse Ox O2 Del Method 04/09/22 16:00 36.8 C 62 20 106/63 92 Room Air 04/09/22 12:00 36.5 C 65 20 139/52 L 95 Nasal Cannula 04/09/22 11:43 Room Air, Nasal Cannula 04/09/22 09:56 61 O2 Flow Rate 04/09/22 16:00 04/09/22 12:00 4 04/09/22 11:43 4 04/09/22 09:56 Laboratory Results Short CBC 04/09/22 Range/Units 06:28 WBC 9.96 (4.8-10.8) K/ul Hgb 12.1 L (14.0-18.0) g/dl Hct 38.4 L (40.1-51.0) % Plt Count 226 (130-400) K/uL BMP 04/09/22 06:28 Sodium 138 Potassium 4.1 Chloride 101 Carbon Dioxide 35 H BUN 9 Creatinine 0.94 Glucose 144 H Calcium 8.9 Urine 04/09/22 Range/Units 14:08 Urine Color Yellow Urine Appearance Clear (Clear) Urine pH 7.5 (4.5-7.5) Ur Specific [place] 1.005 (1.000-1.030) Urine Protein Negative (Negative) Urine Glucose (UA) Negative (Negative) Medications Administered Current Inpatient Medications Albuterol (Albuterol Hfa 8 Gm Inhaler) 2 puffs INH Q4H PRN PRN Reason: Dyspnea Stop: 05/07/22 21:57 Albuterol (Albut/Ipratrop 3mg/0.5mg Neb 3 Ml Vial) 3 ml INH Q6H PRN; Protocol PRN Reason: Shortness Of Breath Or Wheezing Stop: 05/07/22 21:57 Aspirin (Aspirin 81 Mg Ectab) 81 mg PO QAM EMPERATRIZ Stop: 05/08/22 08:59 Last Admin: 04/09/22 08:24 Dose: 81 mg Atorvastatin Calcium (Atorvastatin 40 Mg Tab) 80 mg PO QPM EMPERATRIZ Stop: 05/07/22 21:57 Last Admin: 04/08/22 21:59 Dose: 80 mg Benzonatate (Benzonatate 100 Mg Capsule) 100 mg PO TID PRN PRN Reason: cough Stop: 05/07/22 21:57 Buprenorphine HCl (Buprenorphine Hcl 8 Mg Subl) 8 mg SL TID EMPERATRIZ Stop: 05/07/22 21:57 Last Admin: 04/09/22 13:37 Dose: 8 mg Cyclobenzaprine HCl (Cyclobenzaprine Hcl 10 Mg Tab) 10 mg PO BID PRN PRN Reason: Muscle Spasm Stop: 05/07/22 21:57 Dextrose (Dextrose 50% 50 Ml Syringe) 25 - 50 ml IV UD PRN; Protocol PRN Reason: Hypoglycemia Protocol Stop: 05/07/22 22:44 Docusate Sodium (Docusate Sodium 100 Mg Cap) 100 mg PO BID EMPERATRIZ Stop: 05/07/22 21:57 Last Admin: 04/09/22 08:23 Dose: 100 mg Duloxetine HCl (Duloxetine Hcl 60 Mg Cap) 60 mg PO DAILY EMPERATRIZ Stop: 05/08/22 08:59 Last Admin: 04/09/22 08:24 Dose: 60 mg Enoxaparin Sodium (Enoxaparin Inj 40 Mg/0.4 Ml Syr) 40 mg SQ Q12H EMPERATRIZ Stop: 05/09/22 07:29 Last Admin: 04/09/22 08:21 Dose: 40 mg Famotidine (Famotidine 20 Mg Tab) 20 mg PO DAILY [facility] Stop: 05/08/22 08:59 Last Admin: 04/09/22 08:24 Dose: 20 mg Ferrous Sulfate (Ferrous Sulfate 325 Mg Tab) 325 mg PO QAM EMPERATRIZ Stop: 05/08/22 08:59 Last Admin: 04/09/22 08:24 Dose: 325 mg Finasteride (Finasteride 5 Mg Tab) 5 mg PO QAM EMPERATRIZ Stop: 05/08/22 08:59 Last Admin: 04/09/22 08:24 Dose: 5 mg Fluticasone Propionate (Fluticasone Propionate Na Spr 16 Gm Btl) 2 sprays NA DAILY EMPERATRIZ Stop: 05/08/22 08:59 Last Admin: 04/09/22 08:22 Dose: 2 sprays Folic Acid (Folic Acid 1 Mg Tab) 1 mg PO QAM [facility] Stop: 05/08/22 08:59 Last Admin: 04/09/22 08:24 Dose: 1 mg Furosemide (Furosemide 40 Mg/4 Ml Vial) 40 mg IV BIDM EMPERATRIZ Stop: 05/08/22 08:59 Last Admin: 04/09/22 13:43 Dose: 40 mg Gabapentin (Gabapentin 800 Mg Tab) 800 mg PO TID EMPERATRIZ Stop: 05/07/22 21:57 Last Admin: 04/09/22 13:38 Dose: 800 mg Glucagon (Glucagon For Inj 1 Mg Vial) 1 mg IM UD PRN; Protocol PRN Reason: Hypoglycemia Protocol Stop: 05/07/22 22:44 Glucose (Glucose 40% Gel 15 Gm Tube) 15 - 30 gm PO UD PRN; Protocol PRN Reason: Hypoglycemia Protocol Stop: 05/07/22 22:44 Glucose (Glucose 10 Tab/Tube) 4 - 8 tab PO UD PRN; Protocol PRN Reason: Hypoglycemia Protocol Stop: 05/07/22 22:44 Guaifenesin (Guaifenesin 600 Mg Tabcr) 1,200 mg PO BID EMPERATRIZ Stop: 05/07/22 21:57 Last Admin: 04/09/22 08:23 Dose: 1,200 mg Hydroxyzine HCl (Hydroxyzine Hcl 25 Mg Tab) 25 mg PO QID PRN PRN Reason: Anxiety Stop: 05/07/22 21:57 Acetaminophen (Ofirmev) 1,000 mg in 100 mls @ 400 mls/hr IV BID EMPERATRIZ Stop: 04/11/22 09:59 Last Infusion: 04/09/22 09:01 Dose: Infused Insulin Aspart (Insulin Aspart Per Unit) 0 units SC ACHS [facility] Stop: 05/07/22 21:57 Last Admin: 04/09/22 17:23 Dose: 6 units Insulin Glargine (Lantus Per Unit Charge) 50 units SQ HS EMPERATRIZ Stop: 05/07/22 21:57 Last Admin: 04/08/22 21:56 Dose: 50 units Isosorbide Dinitrate (Isosorbide Dinitrate 10 Mg Tab) 30 mg PO DAILY [facility] Stop: 05/08/22 08:59 Last Admin: 04/09/22 08:22 Dose: 30 mg Lactobacillus Acidophilus (Advanced Probiotic 1250 Mg Capsule) 1 cap PO TID [facility] Stop: 05/07/22 21:57 Last Admin: 04/09/22 13:37 Dose: 1 cap Lorazepam (Lorazepam 0.5 Mg Tab) 0.5 mg PO Q8 PRN PRN Reason: Anxiety Stop: 05/07/22 21:57 Last Admin: 04/09/22 15:12 Dose: 0.5 mg Magnesium Oxide (Magnesium Oxide 400 Mg Tab) 400 mg PO DAILY [facility] Stop: 05/08/22 08:59 Last Admin: 04/09/22 08:24 Dose: 400 mg Metolazone (Metolazone 2.5 Mg Tablet) 2.5 mg PO MoWeFr@0900 [facility] Stop: 05/08/22 08:59 Last Admin: 04/08/22 08:42 Dose: 2.5 mg Metoprolol Succinate (Metoprolol Succ 25mg Ext Rel Tab) 75 mg PO BID [facility] Stop: 05/07/22 21:57 Last Admin: 04/09/22 08:23 Dose: 75 mg Miscellaneous (Urea 20 % Cream - Order Awaiting Action) 1 each N/A QS [facility] Stop: 05/08/22 00:00 Last Admin: 04/09/22 14:07 Dose: Not Given Miscellaneous (Remove Nicoderm Patch) 1 each N/A DAILY@0859 [facility] Stop: 05/08/22 08:58 Last Admin: 04/09/22 08:25 Dose: 1 each Miscellaneous (Carbohydrates For Hypoglycemia ) 15 - 30 gm PO UD PRN PRN Reason: Hypoglycemia Treatment Stop: 05/07/22 22:44 Nicotine (Nicotine 21 Mg/24 Hr Tdsy) 21 mg TD DAILY [facility] Stop: 05/07/22 21:57 Last Admin: 04/09/22 08:22 Dose: 21 mg Nitroglycerin (Nitroglycerin Sl 0.4 Mg/Tab Tab) 0.4 mg SL UD PRN PRN Reason: Chest Pain Stop: 05/07/22 21:57 Nystatin (Nystatin Powder 15gm Btl) 1 appln EXT TID PRN PRN Reason: Skin Irritation Stop: 05/07/22 21:57 Ondansetron HCl (Ondansetron 4 Mg Od Tab) 4 mg PO Q8H PRN PRN Reason: NAUSEA/VOMITING Stop: 05/07/22 22:21 Pantoprazole Sodium (Pantoprazole 40 Mg Tab) 40 mg PO DAILYBB [facility] Stop: 05/08/22 06:29 Last Admin: 04/09/22 05:52 Dose: 40 mg Polyethylene Glycol (Polyethylene (Miralax) 17 Gm Pack) 17 gm PO QAM [facility] Stop: 05/08/22 08:59 Last Admin: 04/09/22 08:22 Dose: 17 gm Potassium Chloride (Potassium Chloride Crtab 20 Meq Tabcr) 20 meq PO BID [facility] Stop: 05/07/22 21:57 Last Admin: 04/09/22 08:23 Dose: 20 meq Sennosides (Senna 8.6 Mg Tab) 8.6 mg PO DAILY PRN PRN Reason: Constipation Stop: 05/07/22 21:57 Spironolactone (Spironolactone 25 Mg Tab) 25 mg PO QAM [facility] Stop: 05/08/22 08:59 Last Admin: 04/09/22 08:24 Dose: 25 mg Tamsulosin HCl (Tamsulosin Hcl 0.4 Mg Cap) 0.8 mg PO QAM [facility] Stop: 05/08/22 08:59 Last Admin: 04/09/22 08:24 Dose: 0.8 mg Trimethoprim/Sulfamethoxazole (Sulfamethoxazole/Trimethoprim Ds 800/160mg Tab) 1 tab PO Q12 [facility] Stop: 04/12/22 13:34 Last Admin: 04/09/22 14:06 Dose: 1 tab Umeclidinium [place] (Umeclidinium [place] 62.5mcg/Blister 7 Puffs/Inhaler) 1 puffs INH QAM [facility] Stop: 05/08/22 08:59 Last Admin: 04/09/22 08:21 Dose: 1 puffs Warfarin Sodium (Warfarin Sod 5 Mg Tab) 5 mg PO DAILY@1600 [facility] Stop: 05/09/22 15:59 Last Admin: 04/09/22 17:37 Dose: 5 mg (1) COPD (chronic obstructive pulmonary disease) COPD type: COPD with acute exacerbation Qualified Code(s): J44.1 - Chronic obstructive pulmonary disease with (acute) exacerbation
[2022-04-09] MEDS: CYCLOBENZAPRINE HCL 10 MG TAB PO PRN (20:36)
[2022-04-09] MEDS: ATORVASTATIN 40 MG TAB PO SCH (20:39)
[2022-04-09] MEDS: LANTUS PER UNIT CHARGE SQ SCH (20:41)
--- NOTE | 2022-04-09 22:50 | Electrocardiogram Report ---
Test Reason : Blood Pressure : / mmHG Vent. Rate : 061 BPM Atrial Rate : 061 BPM P-R Int : 170 ms QRS Dur : 106 ms QT Int : 408 ms P-R-T Axes : 036 026 041 degrees QTc Int : 410 ms Normal sinus rhythm Normal ECG When compared with ECG of 08-APR-2022 06:02, No significant change was found Confirmed by Shaquille Canales ([id number] on 04/09/2022 10:49:40 PM Referred By: REFERRED SELF Confirmed By:Shaquille Canales
[2022-04-10 06:23] LABS: Hematocrit (blood only) 41.5 % (40.1-51.0); Mean Corpuscular Hemoglobin 25.5 pg (25.0-34.0); Mean Corpuscular Hgb Conc 31.3 g/dL (32.0-36.0); Mean Corpuscular Volume 81.5 fL (80.0-100.0); Mean Platelet Volume 10.7 fL (9.4-12.4); Platelet Count 243 K/uL (130-400); RDW Coefficient of Variation 16.8 % (11.5-14.5); RDW Standard Deviation 48.7 fL (36.4-46.3); Red Blood Count 5.09 M/uL (4.63-6.08); White Blood Count 13.38 K/ul (4.8-10.8)
[2022-04-10 06:31] LABS: INR 1.6 (0.9-1.1); Prothrombin Time 16.3 Seconds (9.0-12.0)
[2022-04-10] MEDS: PANTOprazole 40 MG TAB PO SCH (06:57)
[2022-04-10 07:04] LABS: BUN Creatinine Ratio 10.7 (10-20); Calcium 9.2 mg/dl (8.5-10.1); Creatinine Clr Calc Pharmacy 127.3 ml/min; Est GFR (African American) 79.1 ml/min; Est GFR (Non-African American) 68.2 ml/min; Magnesium 1.9 mg/dl (1.7-2.4); Potassium 3.7 mmol/L (3.5-5.1)
[2022-04-10] MEDS: FUROSEMIDE 40 MG/4 ML VIAL IV SCH ×2 (08:38→17:05)
[2022-04-10] MEDS: ACETAMINOPHEN 1,000 MG/100 ML VIAL IV SCH ×2 (08:38→22:36)
[2022-04-10] MEDS: FLUTICASONE PROPIONATE NA SPR 16 GM BTL SCH (08:43)
[2022-04-10] MEDS: buprenorphine HCL 8 MG SUBL SL SCH ×3 (08:46→22:35)
[2022-04-10] MEDS: metOLazone 2.5 MG TABLET PO SCH (08:46)
[2022-04-10] MEDS: GABAPENTIN 800 MG TAB PO SCH ×3 (08:47→22:36)
[2022-04-10] MEDS: ENOXAPARIN INJ 40 MG/0.4 ML SYR SQ SCH ×2 (08:47→21:44)
[2022-04-10] MEDS: METOPROLOL SUCC 25MG EXT REL TAB PO SCH ×2 (08:48→22:36)
[2022-04-10] MEDS: SPIRONOLACTONE 25 MG TAB PO SCH (08:48)
[2022-04-10] MEDS: DULoxetine HCL 60 MG CAP PO SCH (08:48)
[2022-04-10] MEDS: ISOSORBIDE DINITRATE 10 MG TAB PO SCH (08:48)
[2022-04-10] MEDS: ADVANCED PROBIOTIC 1250 MG CAPSULE PO SCH ×3 (08:48→22:36)
[2022-04-10] MEDS: guaiFENesin 600 MG TABCR PO SCH ×2 (08:48→22:36)
[2022-04-10] MEDS: ASPIRIN 81 MG ECTAB PO SCH (08:48)
[2022-04-10] MEDS: FOLIC ACID 1 MG TAB PO SCH (08:49)
[2022-04-10] MEDS: NICOTINE 21 MG/24 HR TDSY TD SCH (08:49)
[2022-04-10] MEDS: FINASTERIDE 5 MG TAB PO SCH (08:49)
[2022-04-10] MEDS: MAGNESIUM OXIDE 400 MG TAB PO SCH (08:49)
[2022-04-10] MEDS: FAMOTIDINE 20 MG TAB PO SCH (08:49)
[2022-04-10] MEDS: FERROUS SULFATE 325 MG TAB PO SCH (08:49)
[2022-04-10] MEDS: TAMSULOSIN HCL 0.4 MG CAP PO SCH (08:49)
[2022-04-10] MEDS: DOCUSATE SODIUM 100 MG CAP PO SCH ×2 (08:49→22:35)
[2022-04-10] MEDS: UMECLIDINIUM BROMIDE 62.5MCG/BLISTER 7 PUFFS/INHALER INH SCH (08:50)
[2022-04-10] MEDS: INSULIN ASPART PER UNIT SC SCH ×4 (08:53→22:52)
[2022-04-10] MEDS: POTASSIUM CHLORIDE CRTAB 20 MEQ TABCR PO SCH ×2 (08:55→22:53)
[2022-04-10] MEDS: POLYETHYLENE (MIRALAX) 17 GM PACK PO SCH (08:55)
[2022-04-10] MEDS: CYCLOBENZAPRINE HCL 10 MG TAB PO PRN ×2 (10:01→22:35)
--- NOTE | 2022-04-10 10:04 | Cardiology Progress Note ---
Date of Service April 10, 2022 Assessment & Plan (1) Fluid overload: (2) Chronic respiratory failure: (3) RHF (right heart failure): (4) Chest pain: (5) Opioid dependence: (6) Morbid obesity: (7) Low back pain: (8) Pickwickian syndrome: (9) Drug-seeking behavior: Plan Once again, the patient presents with volume overload due to nonadherence to medical regimen, dietary restrictions and outpatient medical follow up cont iv diuresis follow and replete lytes as necessary strict I/O's daily weights on the same scale continue all other outpatient cardiac meds Admission and Anticipated Discharge Date Admission Date: April 07, 2022 Subjective Patient seen and examined, chart reviewed. Complaining of pain after difficult Lloyd placement, requesting pain medication. Refused Lasix administration once again last evening but was agreeable to it this a.m. Review of Systems Review of Systems: All systems reviewed & are unremarkable except as noted in HPI & below Physical Exam Physical Exam: General: Awake, alert and oriented x 3. No acute distress. Morbidly obese HEENT: Normocephalic, atraumatic. Pupils equal, round and reactive to light and accommodation. Extraocular muscles are intact. Anicteric sclera. Moist mucous membranes. Neck: No JVD. No bruit. Cardiovascular: Regular. Positive S-4. Normal S-1 and S-2. No S-3. No murmurs or rubs. Pulmonary: Clear to auscultation B/L. No rales, rhonchi or wheezing Abdomen: Bowel sounds x 4, soft. No rebound, guarding or tenderness. No organomegaly. Extremities: No clubbing, cyanosis or edema. +2 pedal pulses bilaterally. Skin: Warm and dry. Results & Data ([facility]) Vital Signs (Past 12 Hours) Vital Signs Temp Pulse Pulse Resp BP Pulse Ox O2 Del Method 04/10/22 09:19 58 L 04/10/22 07:58 36.5 C 62 18 129/72 94 Nasal Cannula 04/10/22 03:53 36.5 C 64 18 116/64 93 Nasal Cannula 04/09/22 23:16 36.4 C L 60 18 110/69 97 Nasal Cannula 04/09/22 23:04 63 04/09/22 22:05 Nasal Cannula O2 Flow Rate 04/10/22 09:19 04/10/22 07:58 4 04/10/22 03:53 4 04/09/22 23:16 2.5 04/09/22 23:04 04/09/22 22:05 2 (1) Fluid overload Hypervolemia type: other Qualified Code(s): E87.79 - Other fluid overload (2) Chest pain Chest pain type: other chest pain Qualified Code(s): R07.89 - Other chest pain (3) Low back pain Back pain laterality: unspecified Chronicity: unspecified Sciatica presence: unspecified whether sciatica present Qualified Code(s): M54.5 - Low back pain
--- NOTE | 2022-04-10 11:19 | Hospitalist Progress Note ---
Date of Service April 10, 2022 Assessment & Plan (1) Acute on chronic diastolic (congestive) heart failure: (2) 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: (3) COPD (chronic obstructive pulmonary disease): (4) History of pulmonary embolism: Plan 51-year-old male with h/o chronic diastolic CHF on lasix/metolazone, h/o PE on chronic coumadin, h/o left ear bleeding a week ago and off of coumadin since who presented to the ED 04/07 with shortness of breath and weight gain Acute on chronic diastolic congestive heart failure- due to dietary indiscretion and possible medication non compliance. BNP normal. - continue iv lasix 40 bid diuresing well, hold metolazone for now. Continue aldactone, continue daily weight, strict I and O, daily weight. Cr mildly elevated, could be from bactrim. Now bactrim is off, will recheck in am. - seen by cardio Left ear bleeding a week ago in setting of supratherapeutic INR- coumadin on hold since, now subtherapeutic. No more bleeding. CT shows no blood but pansinusitis and mild left mastoiditis but no tenderness or clinical symptoms. On ear drops. Monitor. Seen by ENT- only some dried blood otherwise unremarkable and no further treatment needed Right eye blurriness- states for past week since the left ear bleed and has remained stable since ?from DM. Pending ophthal eval. DM-2 with hyperglycemia: A1c 7.4. Continue his Lantus, SSI, hold glipizide Morbid obesity: BMI 61. Recommend weight loss Nocturnal hypoxia: On 4 liters at night while sleeping. continue Benign prostatic hypertrophy with urinary retention- seen by uro and placed on fontaine today. recommended to continue fontaine at discharge and OP follow up. Recommended empiric ABx by uro due to difficult catheterization- suspected stricture vs false passage- s/p bactrim 1 dose as per uro recommendation. UA unremarkable. Continue Flomax, proscar History of pulmonary embolism: INR 1.6 today, resumed on coumadin 04/08. Will give higher dose today and recheck INR in am. Continue lovenox for DVT ppx until INR therapeutic. Tobacco abuse: Nicotine patch, recommend quitting COPD- stable, Continue home inhalers. Wheezing likely from fluids- will monitor with diuresis. if worsens, short course of steroid and nebs. Chronic back pain: Continue home subutex, cymbalta.continue tylenol CAD- stable, no chest pain, tropx 3 neg. Continue aspirin, statin, b nasim and nitrate. Seen by cardio Leucocytosis- mild, likely reactive, relatively stable compared to before. Afebrile, clinically stable. Monitor. DVT ppx- coumadin, lovenox sc Dispo- On iv diuresis for volume optimization Admission and Anticipated Discharge Date Admission Date: April 07, 2022 Subjective Feels okay. No new issues. Legs still feel heavy. Still has some wheezing. No fever, chills, chest pain, shortness of breath. Physical Exam Physical Exam: General: Morbidly obese, sitting comfortably in bed, not in distress, on room air HEENT: EOMI, TIAN, MMM. No sinus tenderness, no tragal or mastoid tenderness on either side, no aural discharge noted Chest: Clear breath sounds bilaterally with mild wheezes CVS: Regular rate and rhythm, normal heart sounds, no murmur Abdomen: Soft, non tender, not distended, normal bowel sounds Neuro: Awake, alert, oriented, conversing well, non focal Extremities: LE edema + Fontaine in place with johnny urine Results & Data Results & Data ([facility]) Vital Signs (Past 12 Hours) Vital Signs Temp Pulse Pulse Resp BP Pulse Ox O2 Del Method 04/10/22 10:03 Room Air, Nasal Cannula 04/10/22 09:19 58 L 04/10/22 07:58 36.5 C 62 18 129/72 94 Nasal Cannula 04/10/22 03:53 36.5 C 64 18 116/64 93 Nasal Cannula 04/09/22 23:16 36.4 C L 60 18 110/69 97 Nasal Cannula O2 Flow Rate 04/10/22 10:03 04/10/22 09:19 04/10/22 07:58 4 04/10/22 03:53 4 04/09/22 23:16 2.5 Laboratory Results Short CBC 04/10/22 Range/Units 05:26 WBC 13.38 H (4.8-10.8) K/ul Hgb 13.0 L (14.0-18.0) g/dl Hct 41.5 (40.1-51.0) % Plt Count 243 (130-400) K/uL BMP 04/10/22 05:26 Sodium 139 Potassium 3.7 Chloride 98 Carbon Dioxide 37 H BUN 13 Creatinine 1.22 Glucose 114 H Calcium 9.2 Urine 04/09/22 Range/Units 14:08 Urine Color Yellow Urine Appearance Clear (Clear) Urine pH 7.5 (4.5-7.5) Ur Specific [place] 1.005 (1.000-1.030) Urine Protein Negative (Negative) Urine Glucose (UA) Negative (Negative) Medications Administered Current Inpatient Medications Albuterol (Albut/Ipratrop 3mg/0.5mg Neb 3 Ml Vial) 3 ml INH Q6H PRN; Protocol PRN Reason: Shortness Of Breath Or Wheezing Stop: 05/07/22 21:57 Albuterol (Albuterol Hfa 8 Gm Inhaler) 2 puffs INH Q4H PRN PRN Reason: dyspnea, wheezing Stop: 05/10/22 10:51 Aspirin (Aspirin 81 Mg Ectab) 81 mg PO QAM [facility] Stop: 05/08/22 08:59 Last Admin: 04/10/22 08:48 Dose: 81 mg Atorvastatin Calcium (Atorvastatin 40 Mg Tab) 80 mg PO QPM [facility] Stop: 05/07/22 21:57 Last Admin: 04/09/22 20:39 Dose: 80 mg Benzonatate (Benzonatate 100 Mg Capsule) 100 mg PO TID PRN PRN Reason: cough Stop: 05/07/22 21:57 Buprenorphine HCl (Buprenorphine Hcl 8 Mg Subl) 8 mg SL TID [facility] Stop: 05/07/22 21:57 Last Admin: 04/10/22 08:46 Dose: 8 mg Cyclobenzaprine HCl (Cyclobenzaprine Hcl 10 Mg Tab) 10 mg PO BID PRN PRN Reason: Muscle Spasm Stop: 05/07/22 21:57 Last Admin: 04/10/22 10:01 Dose: 10 mg Dextrose (Dextrose 50% 50 Ml Syringe) 25 - 50 ml IV UD PRN; Protocol PRN Reason: Hypoglycemia Protocol Stop: 05/07/22 22:44 Docusate Sodium (Docusate Sodium 100 Mg Cap) 100 mg PO BID [facility] Stop: 05/07/22 21:57 Last Admin: 04/10/22 08:49 Dose: 100 mg Duloxetine HCl (Duloxetine Hcl 60 Mg Cap) 60 mg PO DAILY [facility] Stop: 05/08/22 08:59 Last Admin: 04/10/22 08:48 Dose: 60 mg Enoxaparin Sodium (Enoxaparin Inj 40 Mg/0.4 Ml Syr) 40 mg SQ Q12H [facility] Stop: 05/09/22 07:29 Last Admin: 04/10/22 08:47 Dose: 40 mg Famotidine (Famotidine 20 Mg Tab) 20 mg PO DAILY [facility] Stop: 05/08/22 08:59 Last Admin: 04/10/22 08:49 Dose: 20 mg Ferrous Sulfate (Ferrous Sulfate 325 Mg Tab) 325 mg PO QAM [facility] Stop: 05/08/22 08:59 Last Admin: 04/10/22 08:49 Dose: 325 mg Finasteride (Finasteride 5 Mg Tab) 5 mg PO QAM [facility] Stop: 05/08/22 08:59 Last Admin: 04/10/22 08:49 Dose: 5 mg Fluticasone Propionate (Fluticasone Propionate Na Spr 16 Gm Btl) 2 sprays NA DAILY [facility] Stop: 05/08/22 08:59 Last Admin: 04/10/22 08:43 Dose: 2 sprays Folic Acid (Folic Acid 1 Mg Tab) 1 mg PO QAM [facility] Stop: 05/08/22 08:59 Last Admin: 04/10/22 08:49 Dose: 1 mg Furosemide (Furosemide 40 Mg/4 Ml Vial) 40 mg IV BIDM [facility] Stop: 05/08/22 08:59 Last Admin: 04/10/22 08:38 Dose: 40 mg Gabapentin (Gabapentin 800 Mg Tab) 800 mg PO TID [facility] Stop: 05/07/22 21:57 Last Admin: 04/10/22 08:47 Dose: 800 mg Glucagon (Glucagon For Inj 1 Mg Vial) 1 mg IM UD PRN; Protocol PRN Reason: Hypoglycemia Protocol Stop: 05/07/22 22:44 Glucose (Glucose 40% Gel 15 Gm Tube) 15 - 30 gm PO UD PRN; Protocol PRN Reason: Hypoglycemia Protocol Stop: 05/07/22 22:44 Glucose (Glucose 10 Tab/Tube) 4 - 8 tab PO UD PRN; Protocol PRN Reason: Hypoglycemia Protocol Stop: 05/07/22 22:44 Guaifenesin (Guaifenesin 600 Mg Tabcr) 1,200 mg PO BID [facility] Stop: 05/07/22 21:57 Last Admin: 04/10/22 08:48 Dose: 1,200 mg Hydroxyzine HCl (Hydroxyzine Hcl 25 Mg Tab) 25 mg PO QID PRN PRN Reason: Anxiety Stop: 05/07/22 21:57 Acetaminophen (Ofirmev) 1,000 mg in 100 mls @ 400 mls/hr IV BID [facility] Stop: 04/11/22 09:59 Last Infusion: 04/10/22 08:56 Dose: Infused Insulin Aspart (Insulin Aspart Per Unit) 0 units SC ACHS [facility] Stop: 05/07/22 21:57 Last Admin: 04/10/22 08:53 Dose: 7 units Insulin Glargine (Lantus Per Unit Charge) 50 units SQ HS [facility] Stop: 05/07/22 21:57 Last Admin: 04/09/22 20:41 Dose: 50 units Isosorbide Dinitrate (Isosorbide Dinitrate 10 Mg Tab) 30 mg PO DAILY [facility] Stop: 05/08/22 08:59 Last Admin: 04/10/22 08:48 Dose: 30 mg Lactobacillus Acidophilus (Advanced Probiotic 1250 Mg Capsule) 1 cap PO TID [facility] Stop: 05/07/22 21:57 Last Admin: 04/10/22 08:48 Dose: 1 cap Lorazepam (Lorazepam 0.5 Mg Tab) 0.5 mg PO Q8 PRN PRN Reason: Anxiety Stop: 05/07/22 21:57 Last Admin: 04/09/22 20:40 Dose: 0.5 mg Magnesium Oxide (Magnesium Oxide 400 Mg Tab) 400 mg PO DAILY [facility] Stop: 05/08/22 08:59 Last Admin: 04/10/22 08:49 Dose: 400 mg Metolazone (Metolazone 2.5 Mg Tablet) 2.5 mg PO MoWeFr@0900 [facility] Stop: 05/08/22 08:59 Last Admin: 04/10/22 08:46 Dose: Not Given Metoprolol Succinate (Metoprolol Succ 25mg Ext Rel Tab) 75 mg PO BID [facility] Stop: 05/07/22 21:57 Last Admin: 04/10/22 08:48 Dose: 75 mg Miscellaneous (Urea 20 % Cream - Order Awaiting Action) 1 each N/A QS [facility] Stop: 05/08/22 00:00 Last Admin: 04/10/22 07:20 Dose: Not Given Miscellaneous (Remove Nicoderm Patch) 1 each N/A DAILY@0859 [facility] Stop: 05/08/22 08:58 Last Admin: 04/10/22 08:49 Dose: 1 each Miscellaneous (Carbohydrates For Hypoglycemia ) 15 - 30 gm PO UD PRN PRN Reason: Hypoglycemia Treatment Stop: 05/07/22 22:44 Nicotine (Nicotine 21 Mg/24 Hr Tdsy) 21 mg TD DAILY [facility] Stop: 05/07/22 21:57 Last Admin: 04/10/22 08:49 Dose: 21 mg Nitroglycerin (Nitroglycerin Sl 0.4 Mg/Tab Tab) 0.4 mg SL UD PRN PRN Reason: Chest Pain Stop: 05/07/22 21:57 Nystatin (Nystatin Powder 15gm Btl) 1 appln EXT TID PRN PRN Reason: Skin Irritation Stop: 05/07/22 21:57 Ondansetron HCl (Ondansetron 4 Mg Od Tab) 4 mg PO Q8H PRN PRN Reason: NAUSEA/VOMITING Stop: 05/07/22 22:21 Pantoprazole Sodium (Pantoprazole 40 Mg Tab) 40 mg PO DAILYBB [facility] Stop: 05/08/22 06:29 Last Admin: 04/10/22 06:57 Dose: 40 mg Polyethylene Glycol (Polyethylene (Miralax) 17 Gm Pack) 17 gm PO QAM [facility] Stop: 05/08/22 08:59 Last Admin: 04/10/22 08:55 Dose: 17 gm Potassium Chloride (Potassium Chloride Crtab 20 Meq Tabcr) 20 meq PO BID [facility] Stop: 05/07/22 21:57 Last Admin: 04/10/22 08:55 Dose: 20 meq Sennosides (Senna 8.6 Mg Tab) 8.6 mg PO DAILY PRN PRN Reason: Constipation Stop: 05/07/22 21:57 Spironolactone (Spironolactone 25 Mg Tab) 25 mg PO QAM [facility] Stop: 05/08/22 08:59 Last Admin: 04/10/22 08:48 Dose: 25 mg Tamsulosin HCl (Tamsulosin Hcl 0.4 Mg Cap) 0.8 mg PO QAM [facility] Stop: 05/08/22 08:59 Last Admin: 04/10/22 08:49 Dose: 0.8 mg Umeclidinium [place] (Umeclidinium [place] 62.5mcg/Blister 7 Puffs/Inhaler) 1 puffs INH QAM [facility]1983 Stop: 05/08/22 08:59 Last Admin: 04/10/22 08:50 Dose: 1 puffs Warfarin Sodium (Warfarin Sod 5 Mg Tab) 5 mg PO DAILY@1600 [facility] Stop: 05/09/22 15:59 Last Admin: 04/09/22 17:37 Dose: 5 mg (1) COPD (chronic obstructive pulmonary disease) COPD type: COPD with acute exacerbation Qualified Code(s): J44.1 - Chronic obstructive pulmonary disease with (acute) exacerbation
[2022-04-10] MEDS: WARFARIN SOD 5 MG TAB PO SCH (16:42)
[2022-04-10] MEDS: LORazepam 0.5 MG TAB PO PRN (22:35)
[2022-04-10] MEDS: MELATONIN 3 MG TAB PO PRN (22:35)
[2022-04-10] MEDS: ATORVASTATIN 40 MG TAB PO SCH (22:36)
[2022-04-10] MEDS: LANTUS PER UNIT CHARGE SQ SCH (22:52)
[2022-04-11] MEDS: PANTOprazole 40 MG TAB PO SCH (06:14)
[2022-04-11 07:57] LABS: Hematocrit (blood only) 41.9 % (40.1-51.0); Mean Corpuscular Hemoglobin 25.7 pg (25.0-34.0); Mean Corpuscular Volume 82.8 fL (80.0-100.0); Mean Platelet Volume 10.1 fL (9.4-12.4); Platelet Count 235 K/uL (130-400); RDW Coefficient of Variation 16.9 % (11.5-14.5); RDW Standard Deviation 49.9 fL (36.4-46.3); Red Blood Count 5.06 M/uL (4.63-6.08); White Blood Count 10.63 K/ul (4.8-10.8)
[2022-04-11 08:07] LABS: INR 2.1 (0.9-1.1); Prothrombin Time 21.3 Seconds (9.0-12.0)
[2022-04-11 08:37] LABS: Calcium 9.4 mg/dl (8.5-10.1); Creatinine Clr Calc Pharmacy 135.7 ml/min; Est GFR (African American) 84.9 ml/min; Est GFR (Non-African American) 73.3 ml/min; Magnesium 2.1 mg/dl (1.7-2.4); Potassium 3.9 mmol/L (3.5-5.1)
[2022-04-11] MEDS: buprenorphine HCL 8 MG SUBL SL SCH ×3 (08:38→20:20)
[2022-04-11] MEDS: DOCUSATE SODIUM 100 MG CAP PO SCH ×2 (08:38→20:20)
[2022-04-11] MEDS: POTASSIUM CHLORIDE CRTAB 20 MEQ TABCR PO SCH ×2 (08:38→23:03)
[2022-04-11] MEDS: ADVANCED PROBIOTIC 1250 MG CAPSULE PO SCH ×3 (08:39→20:27)
[2022-04-11] MEDS: POLYETHYLENE (MIRALAX) 17 GM PACK PO SCH (08:39)
[2022-04-11] MEDS: MAGNESIUM OXIDE 400 MG TAB PO SCH (08:39)
[2022-04-11] MEDS: FOLIC ACID 1 MG TAB PO SCH (08:39)
[2022-04-11] MEDS: METOPROLOL SUCC 25MG EXT REL TAB PO SCH ×2 (08:39→20:27)
[2022-04-11] MEDS: FERROUS SULFATE 325 MG TAB PO SCH (08:40)
[2022-04-11] MEDS: FAMOTIDINE 20 MG TAB PO SCH (08:40)
[2022-04-11] MEDS: ASPIRIN 81 MG ECTAB PO SCH (08:40)
[2022-04-11] MEDS: FINASTERIDE 5 MG TAB PO SCH (08:40)
[2022-04-11] MEDS: TAMSULOSIN HCL 0.4 MG CAP PO SCH (08:40)
[2022-04-11] MEDS: ISOSORBIDE DINITRATE 10 MG TAB PO SCH (08:40)
[2022-04-11] MEDS: SPIRONOLACTONE 25 MG TAB PO SCH (08:41)
[2022-04-11] MEDS: UMECLIDINIUM BROMIDE 62.5MCG/BLISTER 7 PUFFS/INHALER INH SCH (08:41)
[2022-04-11] MEDS: DULoxetine HCL 60 MG CAP PO SCH (08:41)
[2022-04-11] MEDS: NICOTINE 21 MG/24 HR TDSY TD SCH (08:41)
[2022-04-11] MEDS: ENOXAPARIN INJ 40 MG/0.4 ML SYR SQ SCH ×2 (08:42→09:19)
[2022-04-11] MEDS: GABAPENTIN 800 MG TAB PO SCH ×3 (08:42→20:27)
[2022-04-11] MEDS: guaiFENesin 600 MG TABCR PO SCH ×2 (08:42→20:25)
[2022-04-11] MEDS: FUROSEMIDE 40 MG/4 ML VIAL IV SCH ×2 (08:43→17:18)
[2022-04-11] MEDS: FLUTICASONE PROPIONATE NA SPR 16 GM BTL SCH (08:43)
[2022-04-11] MEDS: INSULIN ASPART PER UNIT SC SCH ×4 (08:44→20:18)
[2022-04-11] MEDS ORDERED: SODIUM CHLORIDE 0.65% NA SOLN 45 ML (OCEAN) ONE (09:00)
[2022-04-11] MEDS: ACETAMINOPHEN 1,000 MG/100 ML VIAL IV SCH ×3 (09:10→20:17)
[2022-04-11] MEDS: LORazepam 0.5 MG TAB PO PRN ×2 (09:11→20:20)
[2022-04-11] MEDS: CYCLOBENZAPRINE HCL 10 MG TAB PO PRN ×2 (09:11→20:20)
[2022-04-11] MEDS: predniSONE 50 MG TAB PO SCH (11:07)
--- NOTE | 2022-04-11 11:22 | Hospitalist Progress Note ---
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 BNP normal. - continue iv lasix 40 bid, metolazone, aldactone, continue daily weight, strict I and O, daily weight. - Cr and electrolytes stable. Diuresing well. Wt 206 kg->204->204->201->198->199. Baseline wt of around 193 kg. 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 No more bleeding. CT shows no blood but pansinusitis and mild left mastoiditis but no tenderness or clinical symptoms. On ear drops. Monitor. Seen by ENT- only some dried blood otherwise unremarkable and no further treatment needed Right eye blurriness- states for past week DENTAL DIRECTOR since the left ear bleed and has remained stable since ?from DM. Pending ophthal eval. DM-2 with hyperglycemia: A1c 7.4. Continue his Lantus, SSI, hold glipizide Morbid obesity: BMI 61. Recommend weight loss Nocturnal hypoxia: On 4 liters at night while sleeping. continue Benign prostatic hypertrophy with urinary retention - seen by uro and placed on fontaine 04/09 which was difficult catheterization- suspected stricture vs false passage- s/p bactrim 1 dose as per uro recommendation. UA unremarkable. - Uro recommended to continue fontaine at discharge and OP follow up. - Continue Flomax, proscar History of pulmonary embolism: INR 2.1 today. Stop lovenox and continue coumadin. Check INR in am. - Per Epic review, his coumadin dose is 2.5 mg every wednesday and 5 mg on all other day per clinical pharmacist 04/07/22 Tobacco abuse: Nicotine patch, recommend quitting COPD with mild exacerbation- will start on prednisone 50 mg daily x5 days. Sputum culture negative. Continue home inhalers. He did not want nebs. Chronic back pain: Continue home subutex, cymbalta.continue tylenol CAD- stable, no chest pain, tropx 3 neg. Continue aspirin, statin, beta nasim and nitrate. Seen by cardio Leucocytosis- mild, likely reactive, resolved. DVT ppx- coumadin- INR therapeutic Dispo- On iv diuresis for volume optimization. Admission and Anticipated Discharge Date Admission Date: April 07, 2022 Subjective States he continues to have pain at the catheter site and asking if he can have another dose of tylenol in the afternoon. Still has wheezing but he does not want nebs- wondering if he can get iv steroids. No fever, chills, nausea, vomiting. State leg still feels heavy which could be from his LE edema, he is already on coumadin and now INR is therapeutic, so there will be no utility of checking US LE. Explained to the patient at bedside. Recommended keeping the legs elevated. Physical Exam Physical Exam: General: Morbidly obese, sitting comfortably in bed, not in distress, on room air HEENT: EOMI, TIAN, MMM. No sinus tenderness, no tragal or mastoid tenderness on either side, no aural discharge noted Chest: Clear breath sounds bilaterally with bilateral mild wheezes CVS: Regular rate and rhythm, normal heart sounds, no murmur Abdomen: Soft, non tender, not distended, normal bowel sounds Neuro: Awake, alert, oriented, conversing well, non focal Extremities: LE edema + Fontaine in place with johnny urine Results & Data Results & Data ([facility]) Vital Signs (Past 12 Hours) Vital Signs Temp Pulse Resp BP BP Pulse Ox O2 Del Method 04/11/22 08:00 Nasal Cannula 04/11/22 07:47 36.5 C 64 22 143/74 H 97 Nasal Cannula 04/11/22 02:43 36.7 C 57 L 18 106/64 93 Nasal Cannula O2 Flow Rate 04/11/22 08:00 2 04/11/22 07:47 2 04/11/22 02:43 2 Laboratory Results Short CBC 04/11/22 Range/Units 07:24 WBC 10.63 (4.8-10.8) K/ul Hgb 13.0 L (14.0-18.0) g/dl Hct 41.9 (40.1-51.0) % Plt Count 235 (130-400) K/uL BMP 04/11/22 07:24 Sodium 139 Potassium 3.9 Chloride 98 Carbon Dioxide 38 H BUN 15 Creatinine 1.15 Glucose 138 H Calcium 9.4 Medications Administered Current Inpatient Medications Albuterol (Albut/Ipratrop 3mg/0.5mg Neb 3 Ml Vial) 3 ml INH Q6H PRN; Protocol PRN Reason: Shortness Of Breath Or Wheezing Stop: 05/07/22 21:57 Albuterol (Albuterol Hfa 8 Gm Inhaler) 2 puffs INH Q4H PRN PRN Reason: dyspnea, wheezing Stop: 05/10/22 10:51 Aspirin (Aspirin 81 Mg Ectab) 81 mg PO QAM [facility] Stop: 05/08/22 08:59 Last Admin: 04/11/22 08:40 Dose: 81 mg Atorvastatin Calcium (Atorvastatin 40 Mg Tab) 80 mg PO QPM [facility] Stop: 05/07/22 21:57 Last Admin: 04/10/22 22:36 Dose: 80 mg Benzonatate (Benzonatate 100 Mg Capsule) 100 mg PO TID PRN PRN Reason: cough Stop: 05/07/22 21:57 Last Admin: 04/11/22 08:38 Dose: 100 mg Buprenorphine HCl (Buprenorphine Hcl 8 Mg Subl) 8 mg SL TID [facility] Stop: 05/07/22 21:57 Last Admin: 04/11/22 08:38 Dose: 8 mg Cyclobenzaprine HCl (Cyclobenzaprine Hcl 10 Mg Tab) 10 mg PO BID PRN PRN Reason: Muscle Spasm Stop: 05/07/22 21:57 Last Admin: 04/11/22 09:11 Dose: 10 mg Dextrose (Dextrose 50% 50 Ml Syringe) 25 - 50 ml IV UD PRN; Protocol PRN Reason: Hypoglycemia Protocol Stop: 05/07/22 22:44 Docusate Sodium (Docusate Sodium 100 Mg Cap) 100 mg PO BID [facility] Stop: 05/07/22 21:57 Last Admin: 04/11/22 08:38 Dose: 100 mg Duloxetine HCl (Duloxetine Hcl 60 Mg Cap) 60 mg PO DAILY [facility] Stop: 05/08/22 08:59 Last Admin: 04/11/22 08:41 Dose: 60 mg Famotidine (Famotidine 20 Mg Tab) 20 mg PO DAILY [facility] Stop: 05/08/22 08:59 Last Admin: 04/11/22 08:40 Dose: 20 mg Ferrous Sulfate (Ferrous Sulfate 325 Mg Tab) 325 mg PO QAM [facility] Stop: 05/08/22 08:59 Last Admin: 04/11/22 08:40 Dose: 325 mg Finasteride (Finasteride 5 Mg Tab) 5 mg PO QAM [facility] Stop: 05/08/22 08:59 Last Admin: 04/11/22 08:40 Dose: 5 mg Fluticasone Propionate (Fluticasone Propionate Na Spr 16 Gm Btl) 2 sprays NA DAILY [facility] Stop: 05/08/22 08:59 Last Admin: 04/11/22 08:43 Dose: 2 sprays Folic Acid (Folic Acid 1 Mg Tab) 1 mg PO QAM [facility] Stop: 05/08/22 08:59 Last Admin: 04/11/22 08:39 Dose: 1 mg Furosemide (Furosemide 40 Mg/4 Ml Vial) 40 mg IV BIDM [facility] Stop: 05/08/22 08:59 Last Admin: 04/11/22 08:43 Dose: 40 mg Gabapentin (Gabapentin 800 Mg Tab) 800 mg PO TID [facility] Stop: 05/07/22 21:57 Last Admin: 04/11/22 08:42 Dose: 800 mg Glucagon (Glucagon For Inj 1 Mg Vial) 1 mg IM UD PRN; Protocol PRN Reason: Hypoglycemia Protocol Stop: 05/07/22 22:44 Glucose (Glucose 40% Gel 15 Gm Tube) 15 - 30 gm PO UD PRN; Protocol PRN Reason: Hypoglycemia Protocol Stop: 05/07/22 22:44 Glucose (Glucose 10 Tab/Tube) 4 - 8 tab PO UD PRN; Protocol PRN Reason: Hypoglycemia Protocol Stop: 05/07/22 22:44 Guaifenesin (Guaifenesin 600 Mg Tabcr) 1,200 mg PO BID [facility] Stop: 05/07/22 21:57 Last Admin: 04/11/22 08:42 Dose: 1,200 mg Hydroxyzine HCl (Hydroxyzine Hcl 25 Mg Tab) 25 mg PO QID PRN PRN Reason: Anxiety Stop: 05/07/22 21:57 Insulin Aspart (Insulin Aspart Per Unit) 0 units SC ACHS [facility] Stop: 05/07/22 21:57 Last Admin: 04/11/22 08:44 Dose: 13 units Insulin Glargine (Lantus Per Unit Charge) 50 units SQ HS [facility] Stop: 05/07/22 21:57 Last Admin: 04/10/22 22:52 Dose: 50 units Isosorbide Dinitrate (Isosorbide Dinitrate 10 Mg Tab) 30 mg PO DAILY [facility] Stop: 05/08/22 08:59 Last Admin: 04/11/22 08:40 Dose: 30 mg Lactobacillus Acidophilus (Advanced Probiotic 1250 Mg Capsule) 1 cap PO TID [facility] Stop: 05/07/22 21:57 Last Admin: 04/11/22 08:39 Dose: 1 cap Lorazepam (Lorazepam 0.5 Mg Tab) 0.5 mg PO Q8 PRN PRN Reason: Anxiety Stop: 05/07/22 21:57 Last Admin: 04/11/22 09:11 Dose: 0.5 mg Magnesium Oxide (Magnesium Oxide 400 Mg Tab) 400 mg PO DAILY [facility] Stop: 05/08/22 08:59 Last Admin: 04/11/22 08:39 Dose: 400 mg Melatonin (Melatonin 3 Mg Tab) 3 mg PO HS PRN PRN Reason: Sleep Stop: 05/10/22 21:44 Last Admin: 04/10/22 22:35 Dose: 3 mg Metolazone (Metolazone 2.5 Mg Tablet) 2.5 mg PO MoWeFr@0900 [facility] Stop: 05/08/22 08:59 Last Admin: 04/10/22 08:46 Dose: Not Given Metoprolol Succinate (Metoprolol Succ 25mg Ext Rel Tab) 75 mg PO BID [facility] Stop: 05/07/22 21:57 Last Admin: 04/11/22 08:39 Dose: 75 mg Miscellaneous (Remove Nicoderm Patch) 1 each N/A DAILY@0859 [facility] Stop: 05/08/22 08:58 Last Admin: 04/11/22 08:43 Dose: 1 each Miscellaneous (Carbohydrates For Hypoglycemia ) 15 - 30 gm PO UD PRN PRN Reason: Hypoglycemia Treatment Stop: 05/07/22 22:44 Nicotine (Nicotine 21 Mg/24 Hr Tdsy) 21 mg TD DAILY [facility] Stop: 05/07/22 21:57 Last Admin: 04/11/22 08:41 Dose: 21 mg Nitroglycerin (Nitroglycerin Sl 0.4 Mg/Tab Tab) 0.4 mg SL UD PRN PRN Reason: Chest Pain Stop: 05/07/22 21:57 Nystatin (Nystatin Powder 15gm Btl) 1 appln EXT TID PRN PRN Reason: Skin Irritation Stop: 05/07/22 21:57 Ondansetron HCl (Ondansetron 4 Mg Od Tab) 4 mg PO Q8H PRN PRN Reason: NAUSEA/VOMITING Stop: 05/07/22 22:21 Pantoprazole Sodium (Pantoprazole 40 Mg Tab) 40 mg PO DAILYBB [facility] Stop: 05/08/22 06:29 Last Admin: 04/11/22 06:14 Dose: 40 mg Polyethylene Glycol (Polyethylene (Miralax) 17 Gm Pack) [facility] [place] 05/08/22 08:59 Last Admin: 04/11/22 08:39 Dose: 17 gm Potassium Chloride (Potassium Chloride Crtab 20 Meq Tabcr) 20 meq PO BID [facility] Stop: 05/07/22 21:57 Last Admin: 04/11/22 08:38 Dose: 20 meq Prednisone (Prednisone 50 Mg Tab) 50 mg PO DAILY [facility] Stop: 04/15/22 09:44 Last Admin: 04/11/22 11:07 Dose: 50 mg Sennosides (Senna 8.6 Mg Tab) 8.6 mg PO DAILY PRN PRN Reason: Constipation Stop: 05/07/22 21:57 Spironolactone (Spiron[facility]actone 25 Mg Tab) [facility] [place] Stop: 05/08/22 08:59 Last Admin: 04/11/22 08:41 Dose: 25 mg Tamsulosin HCl (Tamsulosin Hcl 0.4 Mg Cap) 0.8 [facility] [place] Stop: 05/08/22 08:59 Last Admin: 04/11/22 08:40 Dose: 0.8 mg Umeclidinium [place] (Umeclidinium [place] 62.5mcg/Blister 7 Puffs/Inhaler) 1 p[facility] [place]: 05/08/22 08:59 Last Admin: 04/11/22 08:41 Dose: 1 puffs Warfarin Sodium (Warfarin Sod 3 Mg Tab) 3 mg PO DAILY@1600 [facility] Stop: 05/11/22 15:59 (1) COPD (chronic obstructive pulmonary disease) COPD type: COPD with acute exacerbation Qualified Code(s): J44.1 - Chronic obstructive pulmonary disease with (acute) exacerbation
[2022-04-11] MEDS ORDERED: ACETAMINOPHEN 1000 MG/100 ML IV IV SCH (13:45)
--- NOTE | 2022-04-11 14:45 | Cardiology Progress Note ---
Date of Service April 11, 2022 Assessment & Plan (1) Fluid overload: (2) Chronic respiratory failure: (3) RHF (right heart failure): (4) Chest pain: (5) Opioid dependence: (6) Morbid obesity: (7) Low back pain: (8) Pickwickian syndrome: (9) Drug-seeking behavior: Plan cont iv diuresis Is now 5 L negative since admission follow and replete lytes as necessary strict I/O's daily weights on the same scale continue all other outpatient cardiac meds Admission and Anticipated Discharge Date Admission Date: April 07, 2022 Subjective Patient seen and examined, chart reviewed. Notes pain at the catheter site but otherwise feeling okay. Legs still feel heavy but improved since admission. Telemetry reviewed: Normal sinus rhythm without arrhythmia. Review of Systems Review of Systems: All systems reviewed & are unremarkable except as noted in HPI & below Physical Exam Physical Exam: General: Awake, alert and oriented x 3. No acute distress. Morbidly obese HEENT: Normocephalic, atraumatic. Pupils equal, round and reactive to light and accommodation. Extraocular muscles are intact. Anicteric sclera. Moist mucous membranes. Neck: No JVD. No bruit. Cardiovascular: Regular. Positive S-4. Normal S-1 and S-2. No S-3. No murmurs or rubs. Pulmonary: Clear to auscultation B/L. No rales, rhonchi or wheezing Abdomen: Bowel sounds x 4, soft. No rebound, guarding or tenderness. No organomegaly. Extremities: No clubbing, cyanosis or edema. +2 pedal pulses bilaterally. Skin: Warm and dry. Results & Data ([facility]) Vital Signs (Past 12 Hours) Vital Signs Temp Pulse Resp BP Pulse Ox O2 Del Method O2 Flow Rate 04/11/22 11:18 36.4 C L 62 20 115/55 L 95 Nasal Cannula 2 04/11/22 08:00 Nasal Cannula 2 04/11/22 07:47 36.5 C 64 22 143/74 H 97 Nasal Cannula 2 (1) Fluid overload Hypervolemia type: other Qualified Code(s): E87.79 - Other fluid overload (2) Chest pain Chest pain type: other chest pain Qualified Code(s): R07.89 - Other chest pain (3) Low back pain Back pain laterality: unspecified Chronicity: unspecified Sciatica presence: unspecified whether sciatica present Qualified Code(s): M54.5 - Low back pain
[2022-04-11] MEDS ORDERED: WARFARIN SOD 3 MG TAB PO SCH (16:00)
[2022-04-11] MEDS: LANTUS PER UNIT CHARGE SQ SCH (20:18)
[2022-04-11] MEDS: MELATONIN 3 MG TAB PO PRN (20:20)
[2022-04-11] MEDS: ATORVASTATIN 40 MG TAB PO SCH (20:24)
[2022-04-12] MEDS: PANTOprazole 40 MG TAB PO SCH (05:41)
[2022-04-12 07:05] LABS: Hematocrit (blood only) 42.8 % (40.1-51.0); Hemoglobin 13.6 g/dl (14.0-18.0); Mean Corpuscular Hemoglobin 25.5 pg (25.0-34.0); Mean Corpuscular Hgb Conc 31.8 g/dL (32.0-36.0); Mean Corpuscular Volume 80.3 fL (80.0-100.0); Mean Platelet Volume 10.6 fL (9.4-12.4); Platelet Count 260 K/uL (130-400); RDW Coefficient of Variation 16.3 % (11.5-14.5); RDW Standard Deviation 47.1 fL (36.4-46.3); Red Blood Count 5.33 M/uL (4.63-6.08); White Blood Count 16.82 K/ul (4.8-10.8)
[2022-04-12 07:15] LABS: INR 2.2 (0.9-1.1); Prothrombin Time 22.3 Seconds (9.0-12.0)
[2022-04-12 07:30] LABS: BUN Creatinine Ratio 17.3 (10-20); Calcium 9.8 mg/dl (8.5-10.1); Creatinine Clr Calc Pharmacy 150.1 ml/min; Est GFR (African American) 95.9 ml/min; Est GFR (Non-African American) 82.7 ml/min; Potassium 4.4 mmol/L (3.5-5.1)
[2022-04-12] MEDS: GABAPENTIN 800 MG TAB PO SCH ×3 (07:55→22:25)
[2022-04-12] MEDS: DULoxetine HCL 60 MG CAP PO SCH (07:55)
[2022-04-12] MEDS: ISOSORBIDE DINITRATE 10 MG TAB PO SCH (07:56)
[2022-04-12] MEDS: guaiFENesin 600 MG TABCR PO SCH ×2 (07:56→22:27)
[2022-04-12] MEDS: SPIRONOLACTONE 25 MG TAB PO SCH (07:56)
[2022-04-12] MEDS: ADVANCED PROBIOTIC 1250 MG CAPSULE PO SCH ×3 (07:56→22:27)
[2022-04-12] MEDS: FERROUS SULFATE 325 MG TAB PO SCH (07:56)
[2022-04-12] MEDS: ASPIRIN 81 MG ECTAB PO SCH (07:57)
[2022-04-12] MEDS: NICOTINE 21 MG/24 HR TDSY TD SCH (07:57)
[2022-04-12] MEDS: TAMSULOSIN HCL 0.4 MG CAP PO SCH (07:57)
[2022-04-12] MEDS: FOLIC ACID 1 MG TAB PO SCH (07:57)
[2022-04-12] MEDS: predniSONE 50 MG TAB PO SCH (07:57)
[2022-04-12] MEDS: METOPROLOL SUCC 25MG EXT REL TAB PO SCH ×2 (07:59→22:25)
[2022-04-12] MEDS: MAGNESIUM OXIDE 400 MG TAB PO SCH (07:59)
[2022-04-12] MEDS: FINASTERIDE 5 MG TAB PO SCH (07:59)
[2022-04-12] MEDS: FAMOTIDINE 20 MG TAB PO SCH (08:00)
[2022-04-12] MEDS: UMECLIDINIUM BROMIDE 62.5MCG/BLISTER 7 PUFFS/INHALER INH SCH (08:00)
[2022-04-12] MEDS: FLUTICASONE PROPIONATE NA SPR 16 GM BTL SCH (08:01)
[2022-04-12] MEDS: POTASSIUM CHLORIDE CRTAB 20 MEQ TABCR PO SCH ×2 (08:06→22:35)
[2022-04-12] MEDS: buprenorphine HCL 8 MG SUBL SL SCH ×3 (08:06→22:23)
[2022-04-12] MEDS: FUROSEMIDE 40 MG/4 ML VIAL IV SCH ×2 (08:06→15:42)
[2022-04-12] MEDS: POLYETHYLENE (MIRALAX) 17 GM PACK PO SCH ×2 (08:06→22:24)
[2022-04-12] MEDS: DOCUSATE SODIUM 100 MG CAP PO SCH ×2 (08:06→22:23)
[2022-04-12] MEDS: LORazepam 0.5 MG TAB PO PRN ×2 (08:10→22:23)
[2022-04-12] MEDS: CYCLOBENZAPRINE HCL 10 MG TAB PO PRN ×2 (08:10→22:23)
[2022-04-12] MEDS: ACETAMINOPHEN 1,000 MG/100 ML VIAL IV SCH ×2 (08:27→22:26)
[2022-04-12] MEDS: INSULIN ASPART PER UNIT SC SCH ×4 (08:41→22:31)
--- NOTE | 2022-04-12 10:45 | Cardiology Progress Note ---
Date of Service April 12, 2022 Assessment & Plan (1) Fluid overload: (2) Chronic respiratory failure: (3) RHF (right heart failure): (4) Chest pain: (5) Opioid dependence: (6) Morbid obesity: (7) Low back pain: (8) Pickwickian syndrome: (9) Drug-seeking behavior: Plan cont iv diuresis Is now 9L negative since admission follow and replete lytes as necessary strict I/O's daily weights on the same scale continue all other outpatient cardiac meds Admission and Anticipated Discharge Date Admission Date: April 07, 2022 Subjective Patient seen and examined, chart reviewed. Notes pain at the catheter site but otherwise feeling okay. Legs still feel heavy but improved since admission. Telemetry reviewed: Normal sinus rhythm without arrhythmia. Review of Systems Review of Systems: All systems reviewed & are unremarkable except as noted in HPI & below Physical Exam Physical Exam: General: Awake, alert and oriented x 3. No acute distress. Morbidly obese HEENT: Normocephalic, atraumatic. Pupils equal, round and reactive to light and accommodation. Extraocular muscles are intact. Anicteric sclera. Moist mucous membranes. Neck: No JVD. No bruit. Cardiovascular: Regular. Positive S-4. Normal S-1 and S-2. No S-3. No murmurs or rubs. Pulmonary: Clear to auscultation B/L. No rales, rhonchi or wheezing Abdomen: Bowel sounds x 4, soft. No rebound, guarding or tenderness. No organomegaly. Extremities: No clubbing, cyanosis or edema. +2 pedal pulses bilaterally. Skin: Warm and dry. Results & Data ([facility]) Vital Signs (Past 12 Hours) Vital Signs Temp Pulse Pulse Resp BP Pulse Ox O2 Del Method 04/12/22 08:53 36.3 C L 62 20 149/72 H 96 Nasal Cannula 04/12/22 07:31 57 L 04/12/22 04:00 36.6 C 65 18 141/63 H 96 Nasal Cannula 04/12/22 01:00 67 04/12/22 01:00 Nasal Cannula 04/11/22 22:48 36.7 C 67 18 121/59 L 92 Nasal Cannula O2 Flow Rate 04/12/22 08:53 2 04/12/22 07:31 04/12/22 04:00 2 04/12/22 01:00 04/12/22 01:00 2 04/11/22 22:48 2 (1) Low back pain Back pain laterality: unspecified Chronicity: unspecified Sciatica presence: unspecified whether sciatica present Qualified Code(s): M54.5 - Low back pain (2) Chest pain Chest pain type: other chest pain Qualified Code(s): R07.89 - Other chest pain (3) Fluid overload Hypervolemia type: other Qualified Code(s): E87.79 - Other fluid overload
[2022-04-12] MEDS: SENNA 8.6 MG TAB PO SCH ×2 (11:35→22:24)
--- NOTE | 2022-04-12 15:07 | Hospitalist Progress Note ---
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 BNP normal. - continue iv lasix 40 bid, metolazone, aldactone, continue daily weight, strict I and O, daily weight. - Cr and electrolytes stable. Diuresing well. Wt 206 kg->204->204->201->198->199->199, weight not being taken properly on a standing scale, hence I believe is not accurate. Baseline wt of around 193 kg. - Cardio following Left ear bleeding a week ago PICK UP in setting of supratherapeutic INR- coumadin on hold since, now subtherapeutic. No more bleeding. CT shows no blood but pansinusitis and mild left mastoiditis but no tenderness or clinical symptoms. On ear drops. Monitor. Seen by ENT- only some dried blood otherwise unremarkable and no further treatment needed Right eye blurriness- states for past week PICK UP since the left ear bleed and has remained stable since ?from DM. Pending ophthal eval. DM-2 with hyperglycemia: A1c 7.4. Continue his Lantus, SSI, hold glipizide Morbid obesity: BMI 61. Recommend weight loss Nocturnal hypoxia: On 4 liters at night while sleeping. continue Benign prostatic hypertrophy with urinary retention - seen by uro and placed on fontaine 04/09 which was difficult catheterization- suspected stricture vs false passage- s/p bactrim 1 dose as per uro recommendation. UA unremarkable. - Uro recommended to continue fontaine at discharge and OP follow up. - Continue Flomax, proscar History of pulmonary embolism: INR 2.2 today. Continue coumadin at home dose. Check INR in am. - Per Epic review, his coumadin dose is 2.5 mg every wednesday and 5 mg on all other day per clinical pharmacist 04/07/22 Tobacco abuse: Nicotine patch, recommend quitting COPD with mild exacerbation- On prednisone 50 mg daily, however still with w claritzaezlavern. Will start on iv solumedrol. Sputum culture negative. Continue home inhalers. He did not want nebs. Chronic back pain: Continue home subutex, cymbalta.continue tylenol CAD- stable, no chest pain, tropx 3 neg. Continue aspirin, statin, beta nasim and nitrate. Seen by cardio Leucocytosis- like reactive due to steroids. DVT ppx- coumadin- INR therapeutic Dispo- On iv diuresis for volume optimization. Admission and Anticipated Discharge Date Admission Date: April 07, 2022 Subjective States he doesn't feel too good. He is wondering about iv steroid. Also asking if he can get one more dose of iv tylenol. No fever, chills, nausea, vomiting. States they are not weighing him up on a standing scale. Physical Exam Physical Exam: General: Morbidly obese, sitting comfortably in bed, not in distress, on room air HEENT: EOMI, TIAN, MMM. No sinus tenderness, no tragal or mastoid tenderness on either side, no aural discharge noted Chest: Clear breath sounds bilaterally with bilateral mild wheezes CVS: Regular rate and rhythm, normal heart sounds, no murmur Abdomen: Soft, non tender, not distended, normal bowel sounds Neuro: Awake, alert, oriented, conversing well, non focal Extremities: LE edema + Fontaine in place with johnny urine Results & Data Results & Data ([facility]) Vital Signs (Past 12 Hours) Vital Signs Temp Pulse Pulse Resp BP Pulse Ox O2 Del Method 04/12/22 11:38 36.4 C L 67 20 106/64 96 Nasal Cannula 04/12/22 10:55 Nasal Cannula 04/12/22 08:53 36.3 C L 62 20 149/72 H 96 Nasal Cannula 04/12/22 07:31 57 L 04/12/22 04:00 36.6 C 65 18 141/63 H 96 Nasal Cannula O2 Flow Rate 04/12/22 11:38 2 04/12/22 10:55 2 04/12/22 08:53 2 04/12/22 07:31 04/12/22 04:00 2 Laboratory Results Short CBC 04/12/22 Range/Units 06:25 WBC 16.82 H (4.8-10.8) K/ul Hgb 13.6 L (14.0-18.0) g/dl Hct 42.8 (40.1-51.0) % Plt Count 260 (130-400) K/uL [facility] 04/12/22 06:25 Sodium 137 Potassium 4.4 Chloride 97 L Carbon Dioxide 36 H BUN 18 Creatinine 1.04 Glucose 188 H Calcium 9.8 Medications Administered Current Inpatient Medications Albuterol (Albut/Ipratrop 3mg/0.5mg Neb 3 Ml Vial) 3 ml INH Q6H PRN; Protocol PRN Reason: Shortness Of Breath Or Wheezing Stop: 05/07/22 21:57 Albuterol (Albuterol Hfa 8 Gm Inhaler) 2 puffs INH Q4H PRN PRN Reason: dyspnea, wheezing Stop: 05/10/22 10:51 Aspirin (Aspirin 81 Mg Ectab) 81 mg PO QAM [facility] Stop: 05/08/22 08:59 Last Admin: 04/12/22 07:57 Dose: 81 mg Atorvastatin Calcium (Atorvastatin 40 Mg Tab) 80 mg PO QPM [facility] Stop: 05/07/22 21:57 Last Admin: 04/11/22 20:24 Dose: 80 mg Benzonatate (Benzonatate 100 Mg Capsule) 100 mg PO TID PRN PRN Reason: cough Stop: 05/07/22 21:57 Last Admin: 04/11/22 08:38 Dose: 100 mg Buprenorphine HCl (Buprenorphine Hcl 8 Mg Subl) 8 mg SL TID [facility] Stop: 05/07/22 21:57 Last Admin: 04/12/22 12:55 Dose: 8 mg Cyclobenzaprine HCl (Cyclobenzaprine Hcl 10 Mg Tab) 10 mg PO BID PRN PRN Reason: Muscle Spasm Stop: 05/07/22 21:57 Last Admin: 04/12/22 08:10 Dose: 10 mg Dextrose (Dextrose 50% 50 Ml Syringe) 25 - 50 ml IV UD PRN; Protocol PRN Reason: Hypoglycemia Protocol Stop: 05/07/22 22:44 Docusate Sodium (Docusate Sodium 100 Mg Cap) 200 mg PO BID [facility] Stop: 05/12/22 20:59 Duloxetine HCl (Duloxetine Hcl 60 Mg Cap) 60 mg PO DAILY [facility] Stop: 05/08/22 08:59 Last Admin: 07/24/22 07:55 Dose: 60 mg Famotidine (Famotidine 20 Mg Tab) 20 mg PO DAILY [facility] Stop: 05/08/22 08:59 Last Admin: 04/12/22 08:00 Dose: 20 mg Ferrous Sulfate (Ferrous Sulfate 325 Mg Tab) 325 mg PO QAM [facility] Stop: 05/08/22 08:59 Last Admin: 04/12/22 07:56 Dose: 325 mg Finasteride (Finasteride 5 Mg Tab) 5 mg PO QAM [facility] Stop: 05/08/22 08:59 Last Admin: 04/12/22 07:59 Dose: 5 mg Fluticasone Propionate (Fluticasone Propionate Na Spr 16 Gm Btl) 2 sprays NA DAILY [facility] Stop: 05/08/22 08:59 Last Admin: 04/12/22 08:01 Dose: 2 sprays Folic Acid (Folic Acid 1 Mg Tab) 1 mg PO QAM [facility] Stop: 05/08/22 08:59 Last Admin: 04/12/22 07:57 Dose: 1 mg Furosemide (Furosemide 40 Mg/4 Ml Vial) 40 mg IV BIDM [facility] Stop: 05/08/22 08:59 Last Admin: 04/12/22 08:06 Dose: 40 mg Gabapentin (Gabapentin 800 Mg Tab) 800 mg PO TID [facility] Stop: 05/07/22 21:57 Last Admin: 04/12/22 12:55 Dose: 800 mg Glucagon (Glucagon For Inj 1 Mg Vial) 1 mg IM UD PRN; Protocol PRN Reason: Hypoglycemia Protocol Stop: 05/07/22 22:44 Glucose (Glucose 40% Gel 15 Gm Tube) 15 - 30 gm PO UD PRN; Protocol PRN Reason: Hypoglycemia Protocol Stop: 05/07/22 22:44 Glucose (Glucose 10 Tab/Tube) 4 - 8 tab PO UD PRN; Protocol PRN Reason: Hypoglycemia Protocol Stop: 05/07/22 22:44 Guaifenesin (Guaifenesin 600 Mg Tabcr) 1,200 mg PO BID [facility] Stop: 05/07/22 21:57 Last Admin: 04/12/22 07:56 Dose: 1,200 mg Hydroxyzine HCl (Hydroxyzine Hcl 25 Mg Tab) 25 mg PO QID PRN PRN Reason: Anxiety Stop: 05/07/22 21:57 Acetaminophen (Ofirmev) 1,000 mg in 100 mls @ 400 mls/hr IV BID [facility] Stop: 04/14/22 13:59 Last Infusion: 04/12/22 08:56 Dose: Infused Insulin Aspart (Insulin Aspart Per Unit) 0 units SC ACHS [facility] Stop: 05/07/22 21:57 Last Admin: 04/12/22 12:22 Dose: 10 units Insulin Glargine (Lantus Per Unit Charge) 50 units SQ HS [facility] Stop: 05/07/22 21:57 Last Admin: 04/11/22 20:18 Dose: 50 units Isosorbide Dinitrate (Isosorbide Dinitrate 10 Mg Tab) 30 mg PO DAILY [facility] Stop: 05/08/22 08:59 Last Admin: 04/12/22 07:56 Dose: 30 mg Lactobacillus Acidophilus (Advanced Probiotic 1250 Mg Capsule) 1 cap PO TID [facility] Stop: 05/07/22 21:57 Last Admin: 04/12/22 12:55 Dose: 1 cap Lorazepam (Lorazepam 0.5 Mg Tab) 0.5 mg PO Q8 PRN PRN Reason: Anxiety Stop: 05/07/22 21:57 Last Admin: 04/12/22 08:10 Dose: 0.5 mg Magnesium Oxide (Magnesium Oxide 400 Mg Tab) 400 mg PO DAILY [facility] Stop: 05/08/22 08:59 Last Admin: 04/12/22 07:59 Dose: 400 mg Melatonin (Melatonin 3 Mg Tab) 3 mg PO HS PRN PRN Reason: Sleep Stop: 05/10/22 21:44 Last Admin: 04/11/22 20:20 Dose: 3 mg Metolazone (Metolazone 2.5 Mg Tablet) 2.5 mg PO MoWeFr@0900 [facility] Stop: 05/08/22 08:59 Last Admin: 04/10/22 08:46 Dose: Not Given Metoprolol Succinate (Metoprolol Succ 25mg Ext Rel Tab) 75 mg PO BID [facility] Stop: 05/07/22 21:57 Last Admin: 04/12/22 07:59 Dose: Not Given Miscellaneous (Remove Nicoderm Patch) 1 each N/A DAILY@0859 [facility] Stop: 05/08/22 08:58 Last Admin: 04/12/22 08:00 Dose: 1 each Miscellaneous (Carbohydrates For Hypoglycemia ) 15 - 30 gm PO UD PRN PRN Reason: Hypoglycemia Treatment Stop: 05/07/22 22:44 Nicotine (Nicotine 21 Mg/24 Hr Tdsy) 21 mg TD DAILY [facility] Stop: 05/07/22 21:57 Last Admin: 04/12/22 07:57 Dose: 21 mg Nitroglycerin (Nitroglycerin Sl 0.4 Mg/Tab Tab) 0.4 mg SL UD PRN PRN Reason: Chest Pain Stop: 05/07/22 21:57 Nystatin (Nystatin Powder 15gm Btl) 1 appln EXT TID PRN PRN Reason: Skin Irritation Stop: 05/07/22 21:57 Ondansetron HCl (Ondansetron 4 Mg Od Tab) 4 mg PO Q8H PRN PRN Reason: NAUSEA/VOMITING Stop: 05/07/22 22:21 Pantoprazole Sodium (Pantoprazole 40 Mg Tab) 40 mg PO DAILYBB [facility] Stop: 05/08/22 06:29 Last Admin: 04/12/22 05:41 Dose: 40 mg Polyethylene Glycol (Polyethylene (Miralax) 17 Gm Pack) 17 gm PO BID [facility] Stop: 05/12/22 20:59 Potassium Chloride (Potassium Chloride Crtab 20 Meq Tabcr) 20 meq PO BID [facility] Stop: 05/07/22 21:57 Last Admin: 04/12/22 08:06 Dose: 20 meq Prednisone (Prednisone 50 Mg Tab) 50 mg PO DAILY [facility] Stop: 04/15/22 09:44 Last Admin: 04/12/22 07:57 Dose: 50 mg Sennosides (Senna 8.6 Mg Tab) 8.6 mg PO BID [facility] Stop: 05/12/22 09:59 Last Admin: 04/12/22 11:35 Dose: 8.6 mg Spironolactone (Spironolactone 25 Mg Tab) 25 mg PO QAM [facility] Stop: 05/08/22 08:59 Last Admin: 04/12/22 07:56 Dose: 25 mg Tamsulosin HCl (Tamsulosin Hcl 0.4 Mg Cap) 0.8 mg PO QAM [facility] Stop: 05/08/22 08:59 Last Admin: 04/12/22 07:57 Dose: 0.8 mg Umeclidinium [place] (Umeclidinium [place] 62.5mcg/Blister 7 Puffs/Inhaler) 1 puffs INH QAM [facility] Stop: 05/08/22 08:59 Last Admin: 04/12/22 08:00 Dose: 1 puffs Warfarin Sodium (Warfarin Sod 2.5 Mg Tab) 2.5 mg PO DAILY@1600 [facility] Stop: 05/12/22 15:59 (1) COPD (chronic obstructive pulmonary disease) COPD type: COPD with acute exacerbation Qualified Code(s): J44.1 - Chronic obstructive pulmonary disease with (acute) exacerbation
[2022-04-12] MEDS ORDERED: WARFARIN SOD 2.5 MG TAB PO SCH (16:00)
[2022-04-12] MEDS: MELATONIN 3 MG TAB PO PRN (22:23)
[2022-04-12] MEDS: ATORVASTATIN 40 MG TAB PO SCH (22:25)
[2022-04-12] MEDS: methylPREDNISolone 40 MG in SYRINGE 0 ML IV SCH (22:28)
[2022-04-12] MEDS: LANTUS PER UNIT CHARGE SQ SCH (22:31)
[2022-04-12] MEDS: ALBUTEROL HFA 8 GM INHALER INH PRN (22:47)
[2022-04-13] MEDS: PANTOprazole 40 MG TAB PO SCH (05:46)
[2022-04-13] MEDS: methylPREDNISolone 40 MG in SYRINGE 0 ML IV SCH ×3 (05:46→21:06)
[2022-04-13 06:47] LABS: Hemoglobin 13.3 g/dl (14.0-18.0); Mean Corpuscular Hemoglobin 25.9 pg (25.0-34.0); Mean Corpuscular Hgb Conc 31.7 g/dL (32.0-36.0); Mean Corpuscular Volume 81.7 fL (80.0-100.0); Mean Platelet Volume 10.3 fL (9.4-12.4); Platelet Count 255 K/uL (130-400); RDW Coefficient of Variation 16.4 % (11.5-14.5); RDW Standard Deviation 48.2 fL (36.4-46.3); Red Blood Count 5.14 M/uL (4.63-6.08); White Blood Count 17.87 K/ul (4.8-10.8)
[2022-04-13 07:22] LABS: INR 1.5 (0.9-1.1); Prothrombin Time 15.6 Seconds (9.0-12.0)
[2022-04-13 07:37] LABS: BUN Creatinine Ratio 22.4 (10-20); Calcium 9.7 mg/dl (8.5-10.1); Creatinine Clr Calc Pharmacy 158.8 ml/min; Est GFR (Non-African American) 88.9 ml/min; Magnesium 2.1 mg/dl (1.7-2.4); Potassium 4.6 mmol/L (3.5-5.1)
[2022-04-13] MEDS: ACETAMINOPHEN 1,000 MG/100 ML VIAL IV SCH ×2 (07:49→21:09)
[2022-04-13] MEDS: buprenorphine HCL 8 MG SUBL SL SCH ×3 (07:49→21:06)
[2022-04-13] MEDS: guaiFENesin 600 MG TABCR PO SCH ×2 (07:50→21:07)
[2022-04-13] MEDS: ADVANCED PROBIOTIC 1250 MG CAPSULE PO SCH ×3 (07:50→21:09)
[2022-04-13] MEDS: ISOSORBIDE DINITRATE 10 MG TAB PO SCH (07:51)
[2022-04-13] MEDS: FAMOTIDINE 20 MG TAB PO SCH (07:51)
[2022-04-13] MEDS: FERROUS SULFATE 325 MG TAB PO SCH (07:51)
[2022-04-13] MEDS: METOPROLOL SUCC 25MG EXT REL TAB PO SCH ×2 (07:51→21:07)
[2022-04-13] MEDS: FINASTERIDE 5 MG TAB PO SCH (07:52)
[2022-04-13] MEDS: GABAPENTIN 800 MG TAB PO SCH ×3 (07:52→21:07)
[2022-04-13] MEDS: NICOTINE 21 MG/24 HR TDSY TD SCH (07:52)
[2022-04-13] MEDS: metOLazone 2.5 MG TABLET PO SCH (07:53)
[2022-04-13] MEDS: SENNA 8.6 MG TAB PO SCH ×2 (07:53→21:08)
[2022-04-13] MEDS: MAGNESIUM OXIDE 400 MG TAB PO SCH (07:53)
[2022-04-13] MEDS: ASPIRIN 81 MG ECTAB PO SCH (07:54)
[2022-04-13] MEDS: DOCUSATE SODIUM 100 MG CAP PO SCH ×2 (07:54→21:05)
[2022-04-13] MEDS: FOLIC ACID 1 MG TAB PO SCH (07:54)
[2022-04-13] MEDS: TAMSULOSIN HCL 0.4 MG CAP PO SCH (07:54)
[2022-04-13] MEDS: DULoxetine HCL 60 MG CAP PO SCH (07:55)
[2022-04-13] MEDS: SPIRONOLACTONE 25 MG TAB PO SCH (07:55)
[2022-04-13] MEDS: FLUTICASONE PROPIONATE NA SPR 16 GM BTL SCH (07:56)
[2022-04-13] MEDS: POLYETHYLENE (MIRALAX) 17 GM PACK PO SCH ×2 (07:56→21:11)
[2022-04-13] MEDS: UMECLIDINIUM BROMIDE 62.5MCG/BLISTER 7 PUFFS/INHALER INH SCH (07:57)
[2022-04-13] MEDS: FUROSEMIDE 40 MG/4 ML VIAL IV SCH ×2 (08:04→16:31)
[2022-04-13] MEDS: POTASSIUM CHLORIDE CRTAB 20 MEQ TABCR PO SCH ×2 (08:04→21:06)
[2022-04-13] MEDS: INSULIN ASPART PER UNIT SC SCH ×4 (08:12→21:13)
[2022-04-13] MEDS: ENOXAPARIN INJ 40 MG/0.4 ML SYR SQ SCH ×2 (09:21→21:11)
[2022-04-13] MEDS ORDERED: ACETAMINOPHEN 1000 MG/100 ML IV IV ONE (13:15)
--- NOTE | 2022-04-13 14:43 | Cardiology Progress Note ---
Date of Service April 13, 2022 Assessment & Plan (1) Fluid overload: (2) Chronic respiratory failure: (3) RHF (right heart failure): (4) Chest pain: (5) Opioid dependence: (6) Morbid obesity: (7) Low back pain: (8) Pickwickian syndrome: (9) Drug-seeking behavior: Plan continues to diurese Is now 13 L negative since admission follow and replete lytes as necessary strict I/O's daily weights on the same scale continue all other outpatient cardiac meds will hold am dose of IV lasix and follow volume status clinically BUN/Creat ratio is increasing and relatively hypotensive Admission and Anticipated Discharge Date Admission Date: April 07, 2022 Subjective Pt seen and examined, chart reviewed. Continues to didalline. Review of Systems Review of Systems: All systems reviewed & are unremarkable except as noted in HPI & below Physical Exam Physical Exam: General: Awake, alert and oriented x 3. No acute distress. Morbidly obese HEENT: Normocephalic, atraumatic. Pupils equal, round and reactive to light and accommodation. Extraocular muscles are intact. Anicteric sclera. Moist mucous membranes. Neck: No JVD. No bruit. Cardiovascular: Regular. Positive S-4. Normal S-1 and S-2. No S-3. No murmurs or rubs. Pulmonary: Clear to auscultation B/L. No rales, rhonchi or wheezing Abdomen: Bowel sounds x 4, soft. No rebound, guarding or tenderness. No organomegaly. Extremities: No clubbing, cyanosis or edema. +2 pedal pulses bilaterally. Skin: Warm and dry. Results & Data ([facility]) Vital Signs (Past 12 Hours) Vital Signs Temp Pulse Pulse Resp BP Pulse Ox O2 Del Method 04/13/22 10:45 36.5 C 58 L 20 99/60 L 93 Room Air 04/13/22 09:51 Nasal Cannula 04/13/22 08:00 36.5 C 58 L 20 119/82 97 Nasal Cannula 04/13/22 07:22 57 L 04/13/22 03:07 36.6 C 88 18 148/63 H 93 Nasal Cannula O2 Flow Rate 04/13/22 10:45 04/13/22 09:51 2 04/13/22 08:00 4 04/13/22 07:22 04/13/22 03:07 4 (1) Fluid overload Hypervolemia type: other Qualified Code(s): E87.79 - Other fluid overload (2) Chest pain Chest pain type: other chest pain Qualified Code(s): R07.89 - Other chest pain (3) Low back pain Back pain laterality: unspecified Chronicity: unspecified Sciatica presence: unspecified whether sciatica present Qualified Code(s): M54.5 - Low back pain
[2022-04-13] MEDS ORDERED: WARFARIN SOD 5 MG TAB PO SCH (16:00)
--- NOTE | 2022-04-13 16:50 | Hospitalist Progress Note ---
Date of Service April 13, 2022 Assessment & Plan (1) Acute on chronic diastolic (congestive) heart failure: (2) 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: (3) COPD (chronic obstructive pulmonary disease): (4) History of pulmonary embolism: Plan 51-year-old male with h/o chronic diastolic CHF on lasix/metolazone, h/o PE on chronic coumadin, h/o left ear bleeding a week ago and off of coumadin since who presented to the ED 04/07 with shortness of breath and weight gain Acute on chronic diastolic congestive heart failure- due to dietary indiscretion and possible medication non compliance. BNP normal. - continue iv lasix 40 bid, metolazone, aldactone, continue daily weight, strict I and O, daily weight. - Cr and electrolytes stable. Diuresing well. Wt 206 kg->204->204->201->198->199->199->198. Baseline wt of around 193 kg. 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 No more bleeding. CT shows no blood but pansinusitis and mild left mastoiditis but no tenderness or clinical symptoms. On ear drops. Monitor. 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 Pending ophthal eval. DM-2 with hyperglycemia worsened by steroids: A1c 7.4. Continue his Lantus, SSI, hold glipizide- will adjust SSI given prandial hyperglycemia due to steroids Morbid obesity: BMI 61. Recommend weight loss Nocturnal hypoxia: On 4 liters at night while sleeping. continue Benign prostatic hypertrophy with urinary retention - seen by uro and placed on fontaine 04/09 which was difficult catheterization- suspected stricture vs false passage- s/p bactrim 1 dose as per uro recommendation. UA unremarkable. - Uro recommended to continue fontaine at discharge and OP follow up. - Continue Flomax, proscar History of pulmonary embolism: INR 1.5 today. Continue coumadin 5mg. Check INR in am. - Per Epic review, his coumadin dose is 2.5 mg every wednesday and 5 mg on all other day per clinical pharmacist 04/07/22 Tobacco abuse: Nicotine patch, recommend quitting COPD with mild exacerbation- On iv solumedrol- consider prednisone in am if improving. Sputum culture negative. Continue home inhalers. He did not want nebs. Chronic back pain: Continue home subutex, cymbalta.continue tylenol CAD- stable, no chest pain, tropx 3 neg. Continue aspirin, statin, beta nasim and nitrate. Seen by cardio Leucocytosis- like reactive due to steroids. DVT ppx- coumadin- sc lovenox until INR therapeutic Dispo- On iv diuresis for volume optimization. Admission and Anticipated Discharge Date Admission Date: April 07, 2022 Subjective States he has ongoing pain at catheter site and asking for extra dose of tylenol. Otherwise no new issues. Still with wheezing but thinks slightly better. No chest pain, fever, chills. Asking how long he will be here. Physical Exam Physical Exam: General: Morbidly obese, sitting comfortably in bed, not in distress, on room air HEENT: EOMI, TIAN, MMM Chest: Clear breath sounds bilaterally with bilateral mild wheezes CVS: Regular rate and rhythm, normal heart sounds, no murmur Abdomen: Soft, non tender, not distended, normal bowel sounds Neuro: Awake, alert, oriented, conversing well, non focal Extremities: LE edema + Fontaine in place with johnny urine Results & Data Results & Data ([facility]) Vital Signs (Past 12 Hours) Vital Signs Temp Pulse Pulse Resp BP Pulse Ox O2 Del Method 04/13/22 15:40 36.6 C 71 20 119/74 94 Room Air 04/13/22 15:01 67 04/13/22 10:45 36.5 C 58 L 20 99/60 L 93 Room Air 04/13/22 09:51 Nasal Cannula 04/13/22 08:00 36.5 C 58 L 20 119/82 97 Nasal Cannula 04/13/22 07:22 57 L O2 Flow Rate 04/13/22 15:40 04/13/22 15:01 04/13/22 10:45 04/13/22 09:51 2 04/13/22 08:00 4 04/13/22 07:22 Laboratory Results Short CBC 04/13/22 Range/Units 06:09 WBC 17.87 H (4.8-10.8) K/ul Hgb 13.3 L (14.0-18.0) g/dl Hct 42.0 (40.1-51.0) % Plt Count 255 (130-400) K/uL BMP 04/13/22 06:09 Sodium 135 L Potassium 4.6 Chloride 99 Carbon Dioxide 31 BUN 22 Creatinine 0.98 Glucose 273 H Calcium 9.7 Medications Administered Current Inpatient Medications Albuterol (Albut/Ipratrop 3mg/0.5mg Neb 3 Ml Vial) 3 ml INH Q6H PRN; Protocol PRN Reason: Shortness Of Breath Or Wheezing Stop: 05/07/22 21:57 Albuterol (Albuterol Hfa 8 Gm Inhaler) 2 puffs INH Q4H PRN PRN Reason: dyspnea, wheezing Stop: 05/10/22 10:51 Last Admin: 04/12/22 22:47 Dose: 2 puffs Aspirin (Aspirin 81 Mg Ectab) 81 mg PO QAM EMPERATRIZ Stop: 05/08/22 08:59 Last Admin: 04/13/22 07:54 Dose: 81 mg Atorvastatin Calcium (Atorvastatin 40 Mg Tab) 80 mg PO QPM EMPERATRIZ Stop: 05/07/22 21:57 Last Admin: 04/12/22 22:25 Dose: 80 mg Benzonatate (Benzonatate 100 Mg Capsule) 100 mg PO TID PRN PRN Reason: cough Stop: 05/07/22 21:57 Last Admin: 04/11/22 08:38 Dose: 100 mg Buprenorphine HCl (Buprenorphine Hcl 8 Mg Subl) 8 mg SL TID EMPERATRIZ Stop: 05/07/22 21:57 Last Admin: 04/13/22 13:23 Dose: 8 mg Cyclobenzaprine HCl (Cyclobenzaprine Hcl 10 Mg Tab) 10 mg PO BID PRN PRN Reason: Muscle Spasm Stop: 05/07/22 21:57 Last Admin: 04/12/22 22:23 Dose: 10 mg Dextrose (Dextrose 50% 50 Ml Syringe) 25 - 50 ml IV UD PRN; Protocol PRN Reason: Hypoglycemia Protocol Stop: 05/07/22 22:44 Docusate Sodium (Docusate Sodium 100 Mg Cap) 200 mg PO BID EMPERATRIZ Stop: 05/12/22 20:59 Last Admin: 04/13/22 07:54 Dose: 200 mg Duloxetine HCl (Duloxetine Hcl 60 Mg Cap) 60 mg PO DAILY EMPERATRIZ Stop: 05/08/22 08:59 Last Admin: 04/13/22 07:55 Dose: 60 mg Enoxaparin Sodium (Enoxaparin Inj 40 Mg/0.4 Ml Syr) 40 mg SQ BID [facility] Stop: 05/13/22 08:59 Last Admin: 04/13/22 09:21 Dose: 40 mg Famotidine (Famotidine 20 Mg Tab) 20 mg PO DAILY [facility] Stop: 05/08/22 08:59 Last Admin: 04/13/22 07:51 Dose: 20 mg Ferrous Sulfate (Ferrous Sulfate 325 Mg Tab) 325 mg PO QAM [facility] Stop: 05/08/22 08:59 Last Admin: 04/13/22 07:51 Dose: 325 mg Finasteride (Finasteride 5 Mg Tab) 5 mg PO QAM [facility] Stop: 05/08/22 08:59 Last Admin: 04/13/22 07:52 Dose: 5 mg Fluticasone Propionate (Fluticasone Propionate Na Spr 16 Gm Btl) 2 sprays NA DAILY [facility] Stop: 05/08/22 08:59 Last Admin: 04/13/22 07:56 Dose: 2 sprays Folic Acid (Folic Acid 1 Mg Tab) 1 mg PO QAM [facility] Stop: 05/08/22 08:59 Last Admin: 04/13/22 07:54 Dose: 1 mg Furosemide (Furosemide 40 Mg/4 Ml Vial) 40 mg IV BIDM [facility] Stop: 05/08/22 08:59 Last Admin: 04/13/22 16:31 Dose: 40 mg Gabapentin (Gabapentin 800 Mg Tab) 800 mg PO TID [facility] Stop: 05/07/22 21:57 Last Admin: 04/13/22 13:23 Dose: 800 mg Glucagon (Glucagon For Inj 1 Mg Vial) 1 mg IM UD PRN; Protocol PRN Reason: Hypoglycemia Protocol Stop: 05/07/22 22:44 Glucose (Glucose 40% Gel 15 Gm Tube) 15 - 30 gm PO UD PRN; Protocol PRN Reason: Hypoglycemia Protocol Stop: 05/07/22 22:44 Glucose (Glucose 10 Tab/Tube) 4 - 8 tab PO UD PRN; Protocol PRN Reason: Hypoglycemia Protocol Stop: 05/07/22 22:44 Guaifenesin (Guaifenesin 600 Mg Tabcr) 1,200 mg PO BID [facility] Stop: 05/07/22 21:57 Last Admin: 04/13/22 07:50 Dose: 1,200 mg Hydroxyzine HCl (Hydroxyzine Hcl 25 Mg Tab) 25 mg PO QID PRN PRN Reason: Anxiety Stop: 05/07/22 21:57 Acetaminophen (Ofirmev) 1,000 mg in 100 mls @ 400 mls/hr IV BID EMPERATRIZ Stop: 04/14/22 13:59 Last Infusion: 04/13/22 09:24 Dose: Infused Methylprednisolone 40 mg/ (Syringe) 0.64 mls @ 1.5 mls/min IV Q8 EMPERATRIZ Stop: 05/12/22 21:59 Last Admin: 04/13/22 13:24 Dose: 1.5 mls/min Insulin Aspart (Insulin Aspart Per Unit) 0 units SC ACHS EMPERATRIZ Stop: 05/07/22 21:57 Last Admin: 04/13/22 12:06 Dose: 13 units Insulin Glargine (Lantus Per Unit Charge) 50 units SQ HS EMPERATRIZ Stop: 05/07/22 21:57 Last Admin: 04/12/22 22:31 Dose: 50 units Isosorbide Dinitrate (Isosorbide Dinitrate 10 Mg Tab) 30 mg PO DAILY EMPERATRIZ Stop: 05/08/22 08:59 Last Admin: 04/13/22 07:51 Dose: 30 mg Lactobacillus Acidophilus (Advanced Probiotic 1250 Mg Capsule) 1 cap PO TID EMPERATRIZ Stop: 05/07/22 21:57 Last Admin: 04/13/22 13:24 Dose: 1 cap Lorazepam (Lorazepam 0.5 Mg Tab) 0.5 mg PO Q8 PRN PRN Reason: Anxiety Stop: 05/07/22 21:57 Last Admin: 04/12/22 22:23 Dose: 0.5 mg Magnesium Oxide (Magnesium Oxide 400 Mg Tab) 400 mg PO DAILY EMPERATRIZ Stop: 05/08/22 08:59 Last Admin: 04/13/22 07:53 Dose: 400 mg Melatonin (Melatonin 3 Mg Tab) 3 mg PO HS PRN PRN Reason: Sleep Stop: 05/10/22 21:44 Last Admin: 04/12/22 22:23 Dose: 3 mg Metolazone (Metolazone 2.5 Mg Tablet) 2.5 mg PO MoWeFr@0900 EMPERATRIZ Stop: 05/08/22 08:59 Last Admin: 07/25/22 07:53 Dose: 2.5 mg Metoprolol Succinate (Metoprolol Succ 25mg Ext Rel Tab) 75 mg PO BID [facility] Stop: 05/07/22 21:57 Last Admin: 04/13/22 07:51 Dose: Not Given Miscellaneous (Remove Nicoderm Patch) 1 each N/A DAILY@0859 [facility] Stop: 05/08/22 08:58 Last Admin: 04/13/22 07:56 Dose: 1 each Miscellaneous (Carbohydrates For Hypoglycemia ) 15 - 30 gm PO UD PRN PRN Reason: Hypoglycemia Treatment Stop: 05/07/22 22:44 Nicotine (Nicotine 21 Mg/24 Hr Tdsy) 21 mg TD DAILY [facility] Stop: 05/07/22 21:57 Last Admin: 04/13/22 07:52 Dose: 21 mg Nitroglycerin (Nitroglycerin Sl 0.4 Mg/Tab Tab) 0.4 mg SL UD PRN PRN Reason: Chest Pain Stop: 05/07/22 21:57 Nystatin (Nystatin Powder 15gm Btl) 1 appln EXT TID PRN PRN Reason: Skin Irritation Stop: 05/07/22 21:57 Ondansetron HCl (Ondansetron 4 Mg Od Tab) 4 mg PO Q8H PRN PRN Reason: NAUSEA/VOMITING Stop: 05/07/22 22:21 Pantoprazole Sodium (Pantoprazole 40 Mg Tab) 40 mg PO DAILYBB [facility] Stop: 05/08/22 06:29 Last Admin: 04/13/22 05:46 Dose: 40 mg Polyethylene Glycol (Polyethylene (Miralax) 17 Gm Pack) 17 gm PO BID [facility] Stop: 05/12/22 20:59 Last Admin: 04/13/22 07:56 Dose: 17 gm Potassium Chloride (Potassium Chloride Crtab 20 Meq Tabcr) 20 meq PO BID [facility] Stop: 05/07/22 21:57 Last Admin: 04/13/22 08:04 Dose: 20 meq Sennosides (Senna 8.6 Mg Tab) 8.6 mg PO BID [facility] Stop: 05/12/22 09:59 Last Admin: 04/13/22 07:53 Dose: 8.6 mg Spironolactone (Spironolactone 25 Mg Tab) 25 mg PO QAM [facility] Stop: 05/08/22 08:59 Last Admin: 04/13/22 07:55 Dose: 25 mg Tamsulosin HCl (Tamsulosin Hcl 0.4 Mg Cap) 0.8 mg PO QAM [facility] Stop: 05/08/22 08:59 Last Admin: 04/13/22 07:54 Dose: 0.8 mg Umeclidinium [place] (Umeclidinium [place] 62.5mcg/Blister 7 Puffs/Inhaler) 1 [facility] Stop: 05/08/22 08:59 Last Admin: 04/13/22 07:57 Dose: 1 puffs Warfarin Sodium (Warfarin Sod 5 Mg Tab) 5 mg PO DAILY@1600 [facility] Stop: 05/13/22 15:59 Last Admin: 04/13/22 16:24 Dose: 5 mg (1) COPD (chronic obstructive pulmonary disease) COPD type: COPD with acute exacerbation Qualified Code(s): J44.1 - Chronic obstructive pulmonary disease with (acute) exacerbation
[2022-04-13] MEDS ORDERED: INSULIN HUMAN REGULAR PER UNIT 5 UNITS in SYRINGE 4.95 ML IV ONE (21:00)
[2022-04-13] MEDS: CYCLOBENZAPRINE HCL 10 MG TAB PO PRN (21:06)
[2022-04-13] MEDS: LORazepam 0.5 MG TAB PO PRN (21:06)
[2022-04-13] MEDS: MELATONIN 3 MG TAB PO PRN (21:06)
[2022-04-13] MEDS: ATORVASTATIN 40 MG TAB PO SCH (21:08)
[2022-04-13] MEDS: LANTUS PER UNIT CHARGE SQ SCH (21:13)
[2022-04-13] MEDS: ALBUTEROL HFA 8 GM INHALER INH PRN (21:29)
[2022-04-13] MEDS ORDERED: HYDROmorphone INJ 0.5 MG/0.5 ML SYR IV STA (23:37)
[2022-04-14] MEDS ORDERED: INSULIN ASPART PER UNIT SC STA (00:21)
[2022-04-14] MEDS: methylPREDNISolone 40 MG in SYRINGE 0 ML IV SCH (05:50)
[2022-04-14] MEDS: PANTOprazole 40 MG TAB PO SCH (05:50)
[2022-04-14 06:59] LABS: Hematocrit (blood only) 44.5 % (40.1-51.0); Hemoglobin 13.9 g/dl (14.0-18.0); Mean Corpuscular Hemoglobin 25.4 pg (25.0-34.0); Mean Corpuscular Hgb Conc 31.2 g/dL (32.0-36.0); Mean Corpuscular Volume 81.4 fL (80.0-100.0); Mean Platelet Volume 10.4 fL (9.4-12.4); Platelet Count 273 K/uL (130-400); RDW Coefficient of Variation 16.5 % (11.5-14.5); RDW Standard Deviation 47.8 fL (36.4-46.3); Red Blood Count 5.47 M/uL (4.63-6.08); White Blood Count 20.81 K/ul (4.8-10.8)
[2022-04-14] MEDS: POTASSIUM CHLORIDE CRTAB 20 MEQ TABCR PO SCH ×2 (07:00→20:44)
[2022-04-14] MEDS: buprenorphine HCL 8 MG SUBL SL SCH ×3 (07:00→20:34)
[2022-04-14] MEDS: ASPIRIN 81 MG ECTAB PO SCH (07:01)
[2022-04-14] MEDS: TAMSULOSIN HCL 0.4 MG CAP PO SCH (07:01)
[2022-04-14] MEDS: POLYETHYLENE (MIRALAX) 17 GM PACK PO SCH ×3 (07:01→20:47)
[2022-04-14] MEDS: ADVANCED PROBIOTIC 1250 MG CAPSULE PO SCH ×3 (07:02→20:38)
[2022-04-14] MEDS: FINASTERIDE 5 MG TAB PO SCH (07:02)
[2022-04-14] MEDS: FERROUS SULFATE 325 MG TAB PO SCH (07:03)
[2022-04-14] MEDS: FAMOTIDINE 20 MG TAB PO SCH (07:03)
[2022-04-14] MEDS: MAGNESIUM OXIDE 400 MG TAB PO SCH (07:03)
[2022-04-14] MEDS: SENNA 8.6 MG TAB PO SCH ×2 (07:04→20:40)
[2022-04-14] MEDS: ISOSORBIDE DINITRATE 10 MG TAB PO SCH (07:04)
[2022-04-14] MEDS: guaiFENesin 600 MG TABCR PO SCH ×2 (07:04→20:39)
[2022-04-14] MEDS: DOCUSATE SODIUM 100 MG CAP PO SCH ×2 (07:05→20:39)
[2022-04-14] MEDS: DULoxetine HCL 60 MG CAP PO SCH (07:05)
[2022-04-14] MEDS: FOLIC ACID 1 MG TAB PO SCH (07:06)
[2022-04-14] MEDS: GABAPENTIN 800 MG TAB PO SCH ×3 (07:06→20:39)
[2022-04-14] MEDS: SPIRONOLACTONE 25 MG TAB PO SCH (07:06)
[2022-04-14] MEDS: METOPROLOL SUCC 25MG EXT REL TAB PO SCH ×2 (07:07→20:40)
[2022-04-14] MEDS: FLUTICASONE PROPIONATE NA SPR 16 GM BTL SCH (07:07)
[2022-04-14] MEDS: ACETAMINOPHEN 1,000 MG/100 ML VIAL IV SCH (07:08)
[2022-04-14] MEDS: NICOTINE 21 MG/24 HR TDSY TD SCH (07:08)
[2022-04-14] MEDS: ENOXAPARIN INJ 40 MG/0.4 ML SYR SQ SCH ×2 (07:08→20:39)
[2022-04-14] MEDS: UMECLIDINIUM BROMIDE 62.5MCG/BLISTER 7 PUFFS/INHALER INH SCH (07:09)
[2022-04-14] MEDS: CYCLOBENZAPRINE HCL 10 MG TAB PO PRN ×2 (07:15→20:34)
[2022-04-14] MEDS: LORazepam 0.5 MG TAB PO PRN ×2 (07:15→20:35)
[2022-04-14 07:19] LABS: BUN Creatinine Ratio 28.4 (10-20); Calcium 10.2 mg/dl (8.5-10.1); Creatinine Clr Calc Pharmacy 162.6 ml/min; Est GFR (Non-African American) 92.3 ml/min; Magnesium 2.1 mg/dl (1.7-2.4); Potassium 4.4 mmol/L (3.5-5.1)
[2022-04-14 07:25] LABS: INR 1.3 (0.9-1.1); Prothrombin Time 13.7 Seconds (9.0-12.0)
[2022-04-14] MEDS: INSULIN ASPART PER UNIT SC SCH ×4 (08:19→20:30)
[2022-04-14] MEDS ORDERED: PHARMACY GLYCEMIC MGMT CONSULT PRN (11:57)
[2022-04-14] MEDS: levoFLOXacin/D5W 750 MG/150 ML BAG IV SCH (12:01)
[2022-04-14] MEDS: predniSONE 20 MG TAB PO SCH (13:21)
[2022-04-14] MEDS: INSULIN HUMAN NPH SC SCH (13:27)
[2022-04-14] MEDS ORDERED: ACETAMINOPHEN 1,000 MG/100 ML VIAL IV ONE (14:00)
--- NOTE | 2022-04-14 15:15 | Pharmacy Report ---
Pharmacy Glycemic Short Note 2 - Date of Service April 14, 2022 - Glycemic Short BSG Results (Last 24 hours): 04/13/22 04/13/22 04/13/22 16:37 16:38 20:32 Glucose POC Glucose 358 H* 399 H* 403 H* 04/13/22 04/14/22 04/14/22 20:34 00:02 00:03 Glucose POC Glucose 403 H* 375 H* 335 H* 04/14/22 04/14/22 04/14/22 06:43 07:44 11:32 Glucose 288 H POC Glucose 297 H 489 H* 04/14/22 11:33 Glucose POC Glucose 416 H* OUTPATIENT ANTIDIABETIC REGIMEN: * Lantus 50 units SQ qHS * Novolog SQ TID with meals * Glipizide 10mg PO BID * HbA1c: 7.4% (04/08/22) ASSESSMENT: * Mr Milner is a 51yo diabetic male admitted 04/07 with chest pain. * Over the course of admission, he has received high-dose steroids. As a result, pt has been hyperglycemic. Glycemic consult rec'd today. * Pt was switched from SoluMedrol 40mg IV q8h --> prednisone 40mg PO daily (first dose this afternoon). * Pt appears to be tolerating his diabetic diet. PLAN FOR INPATIENT GLYCEMIC CONTROL: * Hold outpatient oral diabetes medications * Basal insulin * Continue Lantus 50 units SQ HS * Add NPH 50 units (~0.3units/kg AdjBW) daily, to be administered with prednisone * Bolus insulin * NovoLog per scale ACHS or Q6hrs while NPO * Goal Range: Low 110 mg/dL - High 140 mg/dL * Correction Factor: 15 mg/dL/unit * Nutritional / Prandial insulin per carb ratio of 1 unit per 4 grams CHO consumed
--- NOTE | 2022-04-14 16:06 | Hospitalist Progress Note ---
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 BNP normal. - continue iv lasix 40 bid, metolazone, aldactone, continue daily weight, strict I and O, daily weight. - Cr and electrolytes stable. Diuresing well. Wt 206 kg->204->204->201->198->199->199->198->196. Baseline wt of around 193 kg. - Cardio following COPD with mild exacerbation- sputum clx with pseudomonas - s/p iv solumedrol with improvement and now back on prednisone started today. plan for short course of 5 days. - Sputum clx with pseudomonas pansensitive but allergic to cefepime and started on levaquin D1- change to po at discharge. monitor INR while on levaquin. - Continue home inhalers. He did not want nebs. History of pulmonary embolism:INR was therapeutic to 2 for 2 days but since then continues to trend down despite home dose of coumadin, INR 1.3 today. - will give 10 mg coumadin today and check INR in am for further dosing- monitor closely while on FQ - Continue sc lovenox for DVT ppx- If INR still does not improve significantly, consider full dose lovenox or heparin bridging until INR therapeutic - Per Epic review, his coumadin dose is 2.5 mg every wednesday and 5 mg on all other day per clinical pharmacist 04/07/22 Benign prostatic hypertrophy with urinary retention - seen by uro and placed on fontaine 04/09 which was difficult catheterization- suspected stricture vs false passage- s/p bactrim 1 dose as per uro recommendation. UA unremarkable. - Uro recommended to continue fontaine at discharge and OP follow up. - Continue Flomax, proscar DM-2 with hyperglycemia worsened by steroids: A1c 7.4. Continue his Lantus, SSI, hold glipizide- SSI adjusted further given significant prandial hyperglycemia due to steroids- should improve once steroid is done. - Glycemic pharmacist consulted. Left ear bleeding a week ago [employer] in setting of supratherapeutic INR- coumadin on hold since, now subtherapeutic. No more bleeding. CT shows no blood but pansinusitis and mild left mastoiditis but no tenderness or clinical symptoms. On ear drops. Monitor. Seen by ENT- only some dried blood otherwise unremarkable and no further treatment needed Right eye blurriness- states for past week [employer] since the left ear bleed and has remained stable since ?from DM. Pending ophthal eval. Morbid obesity: BMI 61. Recommend weight loss Nocturnal hypoxia: On 4 liters at night while sleeping. continue Tobacco abuse: Nicotine patch, recommend quitting Chronic back pain: Continue home subutex, cymbalta.continue tylenol CAD- stable, no chest pain, tropx 3 neg. Continue aspirin, statin, beta nasim and nitrate. Seen by cardio Leucocytosis- worsening, could be from steroids and pseudomonal infection. monitor. DVT ppx- coumadin- sc lovenox until INR therapeutic Dispo- On iv diuresis for volume optimization. Admission and Anticipated Discharge Date Admission Date: April 07, 2022 Subjective Complains of ongoing burning/pain at the catheter site, more with coughing and hence he has not been coughing to get all the phlegm out. He states his blood sugar is high due to steroids and is not happy about it. No fever, chills, nausea, vomiting. States he still does not feel good but denies any worsening. He states he has been here longer than he expected. Physical Exam Physical Exam: General: Morbidly obese, sitting comfortably in bed, not in distress, on room air HEENT: EOMI, TIAN, MMM Chest: Clear breath sounds bilaterally, wheezes almost resolved CVS: Regular rate and rhythm, normal heart sounds, no murmur Abdomen: Soft, non tender, not distended, normal bowel sounds Neuro: Awake, alert, oriented, conversing well, non focal Extremities: LE edema + Fontaine in place with johnny urine Results & Data Results & Data ([facility]) Vital Signs (Past 12 Hours) Vital Signs Temp Pulse Pulse Resp BP BP Pulse Ox 04/14/22 14:54 36.6 C 110 H 16 126/73 97 04/14/22 11:26 36.6 C 65 16 142/81 H 96 04/14/22 09:05 04/14/22 08:11 60 04/14/22 07:16 36.4 C L 53 L 20 125/75 98 O2 Del Method O2 Flow Rate 04/14/22 14:54 Nasal Cannula 2 04/14/22 11:26 Nasal Cannula 2 04/14/22 09:05 Nasal Cannula 2 04/14/22 08:11 04/14/22 07:16 Nasal Cannula 2 Laboratory Results Short CBC 04/14/22 Range/Units 06:43 WBC 20.81 H (4.8-10.8) K/ul Hgb 13.9 L (14.0-18.0) g/dl Hct 44.5 (40.1-51.0) % Plt Count 273 (130-400) K/uL BMP 04/14/22 06:43 Sodium 135 L Potassium 4.4 Chloride 96 L Carbon Dioxide 36 H BUN 27 H Creatinine 0.95 Glucose 288 H Calcium 10.2 H Medications Administered Current Inpatient Medications Albuterol (Albut/Ipratrop 3mg/0.5mg Neb 3 Ml Vial) 3 ml INH Q6H PRN; Protocol PRN Reason: Shortness Of Breath Or Wheezing Stop: 05/07/22 21:57 Albuterol (Albuterol Hfa 8 Gm Inhaler) 2 puffs INH Q4H PRN PRN Reason: dyspnea, wheezing Stop: 05/10/22 10:51 Last Admin: 04/13/22 21:29 Dose: 2 puffs Aspirin (Aspirin 81 Mg Ectab) 81 mg PO QAM EMPERATRIZ Stop: 05/08/22 08:59 Last Admin: 04/14/22 07:01 Dose: 81 mg Atorvastatin Calcium (Atorvastatin 40 Mg Tab) 80 mg PO QPM EMPERATRIZ Stop: 05/07/22 21:57 Last Admin: 04/13/22 21:08 Dose: 80 mg Benzonatate (Benzonatate 100 Mg Capsule) 100 mg PO TID PRN PRN Reason: cough Stop: 05/07/22 21:57 Last Admin: 04/11/22 08:38 Dose: 100 mg Buprenorphine HCl (Buprenorphine Hcl 8 Mg Subl) 8 mg SL TID EMPERATRIZ Stop: 05/07/22 21:57 Last Admin: 04/14/22 13:28 Dose: 8 mg Cyclobenzaprine HCl (Cyclobenzaprine Hcl 10 Mg Tab) 10 mg PO BID PRN PRN Reason: Muscle Spasm Stop: 05/07/22 21:57 Last Admin: 04/14/22 07:15 Dose: 10 mg Dextrose (Dextrose 50% 50 Ml Syringe) 25 - 50 ml IV UD PRN; Protocol PRN Reason: Hypoglycemia Protocol Stop: 05/07/22 22:44 Docusate Sodium (Docusate Sodium 100 Mg Cap) 200 mg PO BID EMPERATRIZ Stop: 05/12/22 20:59 Last Admin: 04/14/22 07:05 Dose: 200 mg Duloxetine HCl (Duloxetine Hcl 60 Mg Cap) 60 mg PO DAILY EMPERATRIZ Stop: 05/08/22 08:59 Last Admin: 04/14/22 07:05 Dose: 60 mg Enoxaparin Sodium (Enoxaparin Inj 40 Mg/0.4 Ml Syr) 40 mg SQ BID EMPERATRIZ Stop: 05/13/22 08:59 Last Admin: 04/14/22 07:08 Dose: 40 mg Famotidine (Famotidine 20 Mg Tab) 20 mg PO DAILY EMPERATRIZ Stop: 05/08/22 08:59 Last Admin: 04/14/22 07:03 Dose: 20 mg Ferrous Sulfate (Ferrous Sulfate 325 Mg Tab) 325 mg PO QAM [facility] Stop: 05/08/22 08:59 Last Admin: 04/14/22 07:03 Dose: 325 mg Finasteride (Finasteride 5 Mg Tab) 5 mg PO QAM EMPERATRIZ Stop: 05/08/22 08:59 Last Admin: 04/14/22 07:02 Dose: 5 mg Fluticasone Propionate (Fluticasone Propionate Na Spr 16 Gm Btl) 2 sprays NA DAILY EMPERATRIZ Stop: 05/08/22 08:59 Last Admin: 04/14/22 07:07 Dose: 2 sprays Folic Acid (Folic Acid 1 Mg Tab) 1 mg PO QAM [facility] Stop: 05/08/22 08:59 Last Admin: 04/14/22 07:06 Dose: 1 mg Furosemide (Furosemide 40 Mg/4 Ml Vial) 40 mg IV BIDM EMPERATRIZ Stop: 05/08/22 08:59 Last Admin: 04/13/22 16:31 Dose: 40 mg Gabapentin (Gabapentin 800 Mg Tab) 800 mg PO TID EMPERATRIZ Stop: 05/07/22 21:57 Last Admin: 04/14/22 13:21 Dose: 800 mg Glucagon (Glucagon For Inj 1 Mg Vial) 1 mg IM UD PRN; Protocol PRN Reason: Hypoglycemia Protocol Stop: 05/07/22 22:44 Glucose (Glucose 40% Gel 15 Gm Tube) 15 - 30 gm PO UD PRN; Protocol PRN Reason: Hypoglycemia Protocol Stop: 05/07/22 22:44 Glucose (Glucose 10 Tab/Tube) 4 - 8 tab PO UD PRN; Protocol PRN Reason: Hypoglycemia Protocol Stop: 05/07/22 22:44 Guaifenesin (Guaifenesin 600 Mg Tabcr) 1,200 mg PO BID EMPERATRIZ Stop: 05/07/22 21:57 Last Admin: 04/14/22 07:04 Dose: 1,200 mg Hydroxyzine HCl (Hydroxyzine Hcl 25 Mg Tab) 25 mg PO QID PRN PRN Reason: Anxiety Stop: 05/07/22 21:57 Levofloxacin/Dextrose (Levaquin/D5w) 750 mg in 150 mls @ 100 mls/hr IV Q24H EMPERATRIZ Stop: 04/21/22 11:29 Last Infusion: 04/14/22 14:07 Dose: Infused Insulin Aspart (Insulin Aspart Per Unit) 0 units SC ACHS EMPERATRIZ Stop: 05/07/22 21:57 Last Admin: 04/14/22 12:07 Dose: 45 units Insulin Glargine (Lantus Per Unit Charge) 50 units SQ HS EMPERATRIZ Stop: 05/07/22 21:57 Last Admin: 04/13/22 21:13 Dose: 50 units Insulin Human NPH (Insulin Human Nph) 50 units SC DAILY E[facility]ERATRIZ Stop: 05/14/22 12:59 Last Admin: 04/14/22 13:27 Dose: 50 units Isosorbide Dinitrate (Isosorbide Dinitrate 10 Mg Tab) 30 mg PO DAILY EMPERATRIZ Stop: 05/08/22 08:59 Last Admin: 04/14/22 07:04 Dose: 30 mg Lactobacillus Acidophilus (Advanced Probiotic 1250 Mg Capsule) 1 cap PO TID EMPERATRIZ Stop: 05/07/22 21:57 Last Admin: 04/14/22 13:22 Dose: 1 cap Lorazepam (Lorazepam 0.5 Mg Tab) 0.5 mg PO Q8 PRN PRN Reason: Anxiety Stop: 05/07/22 21:57 Last Admin: 04/14/22 07:15 Dose: 0.5 mg Magnesium Oxide (Magnesium Oxide 400 Mg Tab) 400 mg PO DAILY [facility] Stop: 05/08/22 08:59 Last Admin: 04/14/22 07:03 Dose: 400 mg Melatonin (Melatonin 3 Mg Tab) 3 mg PO HS PRN PRN Reason: Sleep Stop: 05/10/22 21:44 Last Admin: 04/13/22 21:06 Dose: 3 mg Metolazone (Metolazone 2.5 Mg Tablet) 2.5 mg PO MoWeFr@0900 [facility] Stop: 05/08/22 08:59 Last Admin: 04/13/22 07:53 Dose: 2.5 mg Metoprolol Succinate (Metoprolol Succ 25mg Ext Rel Tab) 75 mg PO BID [facility] Stop: 05/07/22 21:57 Last Admin: 04/14/22 07:07 Dose: 75 mg Miscellaneous (Remove Nicoderm Patch) 1 each N/A DAILY@0859 [facility] Stop: 05/08/22 08:58 Last Admin: 04/14/22 07:07 Dose: 1 each Miscellaneous (Carbohydrates For Hypoglycemia ) 15 - 30 gm PO UD PRN PRN Reason: Hypoglycemia Treatment Stop: 05/07/22 22:44 Miscellaneous Information (Pharmacy Glycemic Mgmt Consult) 1 each N/A UD PRN PRN Reason: Consult Stop: 05/14/22 11:56 Nicotine (Nicotine 21 Mg/24 Hr Tdsy) 21 mg TD DAILY [facility] Stop: 05/07/22 21:57 Last Admin: 04/14/22 07:08 Dose: 21 mg Nitroglycerin (Nitroglycerin Sl 0.4 Mg/Tab Tab) 0.4 mg SL UD PRN PRN Reason: Chest Pain Stop: 05/07/22 21:57 Nystatin (Nystatin Powder 15gm Btl) 1 appln EXT TID PRN PRN Reason: Skin Irritation Stop: 05/07/22 21:57 Ondansetron HCl (Ondansetron 4 Mg Od Tab) 4 mg PO Q8H PRN PRN Reason: NAUSEA/VOMITING Stop: 05/07/22 22:21 [facility]oprazole Sodium ([facility] 40 Mg Tab) [facility]: 05/08/22 06:29 Last Admin: 04/14/22 05:50 Dose: 40 mg Polyethylene Glycol (Polyethylene (Miralax) 17 Gm Pack) 17 gm PO BID [facility] Stop: 05/12/22 20:59 Last Admin: 04/14/22 07:01 Dose: 17 gm Potassium Chloride (Potassium Chloride Crtab 20 Meq Tabcr) 20 meq PO BID [facility] Stop: 05/07/22 21:57 Last Admin: 04/14/22 07:00 Dose: 20 meq Prednisone (Prednisone 20 Mg Tab) 40 mg PO DAILY [facility] Stop: 05/14/22 11:59 Last Admin: 04/14/22 13:21 Dose: 40 mg Sennosides (Senna 8.6 Mg Tab) 8.6 mg PO BID [facility] Stop: 05/12/22 09:59 Last Admin: 04/14/22 07:04 Dose: 8.6 mg Spironolactone (Spironolactone 25 Mg Tab) 25 mg PO QAM [facility] Stop: 05/08/22 08:59 Last Admin: 04/14/22 07:06 Dose: 25 mg Tamsulosin HCl (Tamsulosin Hcl 0.4 Mg Cap) 0.8 mg PO QAM [facility] Stop: 05/08/22 08:59 Last Admin: 04/14/22 07:01 Dose: 0.8 mg Umeclidinium [place] (Umeclidinium [place] 62.5mcg/Blister 7 Puffs/Inhaler) 1 puffs INH QAM [facility] Stop: 05/08/22 08:59 Last Admin: 04/14/22 07:09 Dose: 1 puffs Warfarin Sodium (Warfarin Sod 10 Mg Tab) 10 mg PO DAILY@1600 [facility] Stop: 05/14/22 15:59 (1) COPD (chronic obstructive pulmonary disease) COPD type: COPD with acute exacerbation Qualified Code(s): J44.1 - Chronic obstructive pulmonary disease with (acute) exacerbation
[2022-04-14] MEDS: WARFARIN SOD 10 MG TAB PO SCH (17:32)
[2022-04-14] MEDS: LANTUS PER UNIT CHARGE SQ SCH (20:29)
[2022-04-14] MEDS: MELATONIN 3 MG TAB PO PRN (20:35)
[2022-04-14] MEDS: ATORVASTATIN 40 MG TAB PO SCH (20:38)
[2022-04-14] MEDS: ACETAMINOPHEN 1,000 MG/100 ML VIAL IV PRN (21:44)
[2022-04-15] MEDS: PANTOprazole 40 MG TAB PO SCH (06:23)
[2022-04-15 08:21] LABS: INR 1.5 (0.9-1.1)
[2022-04-15 08:33] LABS: BUN Creatinine Ratio 27.5 (10-20); Calcium 10.4 mg/dl (8.5-10.1); Creatinine Clr Calc Pharmacy 151.4 ml/min; Est GFR (African American) 98.2 ml/min; Est GFR (Non-African American) 84.7 ml/min
[2022-04-15] MEDS: ASPIRIN 81 MG ECTAB PO SCH (08:54)
[2022-04-15] MEDS: DOCUSATE SODIUM 100 MG CAP PO SCH ×2 (08:56→20:19)
[2022-04-15] MEDS: DULoxetine HCL 60 MG CAP PO SCH (08:57)
[2022-04-15] MEDS: ENOXAPARIN INJ 40 MG/0.4 ML SYR SQ SCH ×2 (08:58→20:17)
[2022-04-15] MEDS: FAMOTIDINE 20 MG TAB PO SCH (09:01)
[2022-04-15] MEDS: FERROUS SULFATE 325 MG TAB PO SCH (09:02)
[2022-04-15] MEDS: FINASTERIDE 5 MG TAB PO SCH (09:03)
[2022-04-15] MEDS: FLUTICASONE PROPIONATE NA SPR 16 GM BTL SCH (09:03)
[2022-04-15] MEDS: GABAPENTIN 800 MG TAB PO SCH ×3 (09:04→20:18)
[2022-04-15] MEDS: FOLIC ACID 1 MG TAB PO SCH (09:04)
[2022-04-15] MEDS: guaiFENesin 600 MG TABCR PO SCH ×2 (09:05→20:17)
[2022-04-15] MEDS: ISOSORBIDE DINITRATE 10 MG TAB PO SCH (09:06)
[2022-04-15] MEDS: MAGNESIUM OXIDE 400 MG TAB PO SCH (09:07)
[2022-04-15] MEDS: metOLazone 2.5 MG TABLET PO SCH (09:08)
[2022-04-15] MEDS: METOPROLOL SUCC 25MG EXT REL TAB PO SCH ×2 (09:09→20:19)
[2022-04-15] MEDS: NICOTINE 21 MG/24 HR TDSY TD SCH (09:10)
[2022-04-15] MEDS: POLYETHYLENE (MIRALAX) 17 GM PACK PO SCH ×2 (09:11→20:18)
[2022-04-15] MEDS: predniSONE 20 MG TAB PO SCH (09:12)
[2022-04-15] MEDS: SENNA 8.6 MG TAB PO SCH ×2 (09:12→20:17)
[2022-04-15] MEDS: SPIRONOLACTONE 25 MG TAB PO SCH (09:12)
[2022-04-15] MEDS: TAMSULOSIN HCL 0.4 MG CAP PO SCH (09:13)
[2022-04-15] MEDS: INSULIN ASPART PER UNIT SC SCH ×4 (10:02→20:15)
[2022-04-15] MEDS: POTASSIUM CHLORIDE CRTAB 20 MEQ TABCR PO SCH ×2 (10:06→20:22)
[2022-04-15] MEDS: CYCLOBENZAPRINE HCL 10 MG TAB PO PRN ×2 (10:06→20:16)
[2022-04-15] MEDS: LORazepam 0.5 MG TAB PO PRN ×2 (10:07→20:16)
[2022-04-15] MEDS: buprenorphine HCL 8 MG SUBL SL SCH ×3 (10:07→20:16)
[2022-04-15] MEDS: INSULIN HUMAN NPH SC SCH (10:14)
[2022-04-15] MEDS: ACETAMINOPHEN 1,000 MG/100 ML VIAL IV PRN ×2 (10:40→19:24)
[2022-04-15] MEDS: levoFLOXacin/D5W 750 MG/150 ML BAG IV SCH (11:05)
[2022-04-15] MEDS: UMECLIDINIUM BROMIDE 62.5MCG/BLISTER 7 PUFFS/INHALER INH SCH (11:25)
[2022-04-15] MEDS: ADVANCED PROBIOTIC 1250 MG CAPSULE PO SCH ×3 (11:25→20:20)
[2022-04-15] MEDS ORDERED: SOD PHOSPHATE/SOD BIPHOSPHATE ENEMA 132 ML BTL PR STA (13:47)
--- NOTE | 2022-04-15 15:03 | Hospitalist Progress Note ---
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 BNP normal. - continue iv lasix 40 bid, metolazone, aldactone, continue daily weight, strict I and O, daily weight. - Cr and electrolytes stable. Diuresing well. Wt 206 kg->204->204->201->198->199->199->198->196. Baseline wt of around 193 kg. - Cardio following -Negative balance about 20 L -The patient is still feels edematous -We will continue IV Lasix as long as he is in the hospital -We will get PT and OT evaluation prior to discharge Complains to have constipation Bowel did not move for the last 9 days Denies any symptoms Will try Fleet enema COPD with mild exacerbation- sputum clx with pseudomonas - s/p iv solumedrol with improvement and now back on prednisone started today. plan for short course of 5 days. - Sputum clx with pseudomonas pansensitive but allergic to cefepime and started on levaquin D1- change to po at discharge. monitor INR while on levaquin. - Continue home inhalers. He did not want nebs. -Still has some wheezing but has been saturating on room air -We will continue IV Levaquin for now and change to oral on discharge History of pulmonary embolism:INR was therapeutic to 2 for 2 days but since then continues to trend down despite home dose of coumadin, INR 1.3 today. - will give 10 mg coumadin today and check INR in am for further dosing- monitor closely while on FQ - Continue sc lovenox for DVT ppx- If INR still does not improve significantly, consider full dose lovenox or heparin bridging until INR therapeutic - Per Epic review, his coumadin dose is 2.5 mg every wednesday and 5 mg on all other day per clinical pharmacist 04/07/22 -INR is 1.7 as of today and will continue with 10 mg Coumadin orally Benign prostatic hypertrophy with urinary retention - seen by uro and placed on fontaine 04/09 which was difficult catheterization- suspected stricture vs false passage- s/p bactrim 1 dose as per uro recommendation. UA unremarkable. - Uro recommended to continue fontaine at discharge and OP follow up. - Continue Flomax, proscar -He has been complaining of some pain involving the catheter insertion DM-2 with hyperglycemia worsened by steroids: A1c 7.4. Continue his Lantus, SSI, hold glipizide- SSI adjusted further given significant prandial hyperglycemia due to steroids- should improve once steroid is done. - Glycemic pharmacist consulted. Left ear bleeding a week ago [employer] in setting of supratherapeutic INR- coumadin on hold since, now subtherapeutic. No more bleeding. CT shows no blood but pansinusitis and mild left mastoiditis but no tenderness or clinical symptoms. On ear drops. Monitor. Seen by ENT- only some dried blood otherwise unremarkable and no further treatment needed Right eye blurriness- states for past week [employer] since the left ear bleed and has remained stable since ?from DM. Pending ophthal eval. Morbid obesity: BMI 61. Recommend weight loss Nocturnal hypoxia: On 4 liters at night while sleeping. continue Tobacco abuse: Nicotine patch, recommend quitting Chronic back pain: Continue home subutex, cymbalta.continue tylenol No narcotics will be prescribed CAD- stable, no chest pain, tropx 3 neg. Continue aspirin, statin, beta nasim and nitrate. Seen by cardio No acute cardiac symptoms Leucocytosis- worsening, could be from steroids and pseudomonal infection. monitor. Will get chest x-ray to make sure there is no pneumonia Leukocytosis likely secondary to use of steroid DVT ppx- coumadin- sc lovenox until INR therapeutic Dispo- On iv diuresis for volume optimization. Admission and Anticipated Discharge Date Admission Date: April 07, 2022 Subjective 04/15/2022 The patient was seen and examined in medical telemetry unit He has been complaining of still having edema and wheezing at times Has not moved his bowels since last Wednesday which is more than 9 days Denies any abdominal pain, nausea and or vomiting Review of Systems Review of Systems: All systems reviewed and are unremarkable except as noted below Physical Exam Physical Exam: Lying in bed comfortably Constitutional: well developed, well nourished, + ill appearing and + obese Eyes: PERRL, conjunctivae normal, anicteric sclerae ENMT: external ear and nose normal, oropharynx normal Neck: trachea midline, no thyromegaly Respiratory: no respiratory distress Auscultation: + diminished lung sounds, + crackles (Minimal bibasilar crackles) and + wheezes (Wheezing anteriorly) Cardiovascular: Rate/Rhythm: regular rate and regular rhythm; not tachycardic Heart Sounds: normal S1 and normal S2; no murmur Extremities: + edema (1+ edema bilaterally) Gastrointestinal (Abdomen): Inspection/Auscultation: + abdomen distended and normal bowel sounds Percussion/Palpation: abdomen soft; abdomen nontender Musculoskeletal: No acute arthritis involving any joint Neurologic: Alert, 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. Moving all limbs equally. No focal sensory or no motor deficit appreciated Psychiatric: A+Ox3, euthymic affect Lymphatic: no cervical or axillary lymphadenopathy Results & Data Results & Data ([facility]) Vital Signs (Past 12 Hours) Vital Signs Temp Pulse Pulse Pulse Resp BP BP 04/15/22 12:09 36.9 C 61 18 118/65 04/15/22 11:50 04/15/22 08:11 36.6 C 60 58 L 16 138/80 04/15/22 08:04 52 L 04/15/22 08:02 36.4 C L 58 L 20 131/74 04/15/22 04:29 36.4 C L 61 16 132/73 Pulse Ox O2 Del Method O2 Flow Rate 04/15/22 12:09 97 Room Air 04/15/22 11:50 Nasal Cannula 2 04/15/22 08:11 97 Nasal Cannula 2 04/15/22 08:04 04/15/22 08:02 98 Nasal Cannula 4 04/15/22 04:29 95 Nasal Cannula 3 Laboratory Results BMP 04/15/22 07:46 Sodium 138 Potassium 4.0 Chloride 99 Carbon Dioxide 36 H BUN 28 H Creatinine 1.02 Glucose 122 H Calcium 10.4 H Medications Administered Current Inpatient Medications Albuterol (Albut/Ipratrop 3mg/0.5mg Neb 3 Ml Vial) 3 ml INH Q6H PRN; Protocol PRN Reason: Shortness Of Breath Or Wheezing Stop: 05/07/22 21:57 Albuterol (Albuterol Hfa 8 Gm Inhaler) 2 puffs INH Q4H PRN PRN Reason: dyspnea, wheezing Stop: 05/10/22 10:51 Last Admin: 04/13/22 21:29 Dose: 2 puffs Aspirin (Aspirin 81 Mg Ectab) 81 mg PO QAM [facility] Stop: 05/08/22 08:59 Last Admin: 04/15/22 08:54 Dose: 81 mg Atorvastatin Calcium (Atorvastatin 40 Mg Tab) 80 mg PO QPM [facility] Stop: 05/07/22 21:57 Last Admin: 04/14/22 20:38 Dose: 80 mg Benzonatate (Benzonatate 100 Mg Capsule) 100 mg PO TID PRN PRN Reason: cough Stop: 05/07/22 21:57 Last Admin: 04/11/22 08:38 Dose: 100 mg Buprenorphine HCl (Buprenorphine Hcl 8 Mg Subl) 8 mg SL TID [facility] Stop: 05/07/22 21:57 Last Admin: 04/15/22 13:09 Dose: 8 mg Cyclobenzaprine HCl (Cyclobenzaprine Hcl 10 Mg Tab) 10 mg PO BID PRN PRN Reason: Muscle Spasm Stop: 05/07/22 21:57 Last Admin: 04/15/22 10:06 Dose: 10 mg Dextrose (Dextrose 50% 50 Ml Syringe) 25 - 50 ml IV UD PRN; Protocol PRN Reason: Hypoglycemia Protocol Stop: 05/07/22 22:44 Docusate Sodium (Docusate Sodium 100 Mg Cap) 200 mg PO BID [facility] Stop: 05/12/22 20:59 Last Admin: 04/15/22 08:56 Dose: 200 mg Duloxetine HCl (Duloxetine Hcl 60 Mg Cap) 60 mg PO DAILY [facility] Stop: 05/08/22 08:59 Last Admin: 04/15/22 08:57 Dose: 60 mg Enoxaparin Sodium (Enoxaparin Inj 40 Mg/0.4 Ml Syr) 40 mg SQ BID [facility] Stop: 05/13/22 08:59 Last Admin: 04/15/22 08:58 Dose: 40 mg Famotidine (Famotidine 20 Mg Tab) 20 mg PO DAILY [facility] Stop: 05/08/22 08:59 Last Admin: 04/15/22 09:01 Dose: 20 mg Ferrous Sulfate (Ferrous Sulfate 325 Mg Tab) 325 mg PO QAM [facility] Stop: 05/08/22 08:59 Last Admin: 04/15/22 09:02 Dose: 325 mg Finasteride (Finasteride 5 Mg Tab) 5 mg PO QAM [facility] Stop: 05/08/22 08:59 Last Admin: 04/15/22 09:03 Dose: 5 mg Fluticasone Propionate (Fluticasone Propionate Na Spr 16 Gm Btl) 2 sprays NA DAILY [facility] Stop: 05/08/22 08:59 Last Admin: 04/15/22 09:03 Dose: 2 sprays Folic Acid (Folic Acid 1 Mg Tab) 1 mg PO QAM [facility] Stop: 05/08/22 08:59 Last Admin: 04/15/22 09:04 Dose: 1 mg Furosemide (Furosemide 40 Mg/4 Ml Vial) 40 mg IV BIDM [facility] Stop: 05/08/22 08:59 Last Admin: 04/13/22 16:31 Dose: 40 mg Gabapentin (Gabapentin 800 Mg Tab) 800 mg PO TID [facility] Stop: 05/07/22 21:57 Last Admin: 04/15/22 13:09 Dose: 800 mg Glucagon (Glucagon For Inj 1 Mg Vial) 1 mg IM UD PRN; Protocol PRN Reason: Hypoglycemia Protocol Stop: 05/07/22 22:44 Glucose (Glucose 40% Gel 15 Gm Tube) 15 - 30 gm PO UD PRN; Protocol PRN Reason: Hypoglycemia Protocol Stop: 05/07/22 22:44 Glucose (Glucose 10 Tab/Tube) 4 - 8 tab PO UD PRN; Protocol PRN Reason: Hypoglycemia Protocol Stop: 05/07/22 22:44 Guaifenesin (Guaifenesin 600 Mg Tabcr) 1,200 mg PO BID [facility] Stop: 05/07/22 21:57 Last Admin: 04/15/22 09:05 Dose: 1,200 mg Hydroxyzine HCl (Hydroxyzine Hcl 25 Mg Tab) 25 mg PO QID PRN PRN Reason: Anxiety Stop: 05/07/22 21:57 Levofloxacin/Dextrose (Levaquin/D5w) 750 mg in 150 mls @ 100 mls/hr IV Q24H [facility] Stop: 04/21/22 11:29 Last Infusion: 04/15/22 12:40 Dose: Infused Acetaminophen (Ofirmev) 1,000 mg in 100 mls @ 400 mls/hr IV Q8H PRN PRN Reason: pain/fever Stop: 04/17/22 21:07 Last Infusion: 04/15/22 10:55 Dose: Infused Insulin Aspart (Insulin Aspart Per Unit) 0 units SC ACHS [facility] Stop: 05/07/22 21:57 Last Admin: 04/15/22 13:04 Dose: 20 units Insulin Glargine (Lantus Per Unit Charge) 50 units SQ HS [facility] Stop: 05/07/22 21:57 Last Admin: 04/14/22 20:29 Dose: 50 units Insulin Human NPH (Insulin Human Nph) 50 units SC DAILY [facility] Stop: 05/14/22 12:59 Last Admin: 04/15/22 10:14 Dose: 50 units Isosorbide Dinitrate (Isosorbide Dinitrate 10 Mg Tab) 30 mg PO DAILY [facility] Stop: 05/08/22 08:59 Last Admin: 04/15/22 09:06 Dose: 30 mg Lactobacillus Acidophilus (Advanced Probiotic 1250 Mg Capsule) 1 cap PO TID [facility] Stop: 05/07/22 21:57 Last Admin: 04/15/22 13:31 Dose: 1 cap Lorazepam (Lorazepam 0.5 Mg Tab) 0.5 mg PO Q8 PRN PRN Reason: Anxiety Stop: 05/07/22 21:57 Last Admin: 04/15/22 10:07 Dose: 0.5 mg Magnesium Oxide (Magnesium Oxide 400 Mg Tab) 400 mg PO DAILY [facility] Stop: 05/08/22 08:59 Last Admin: 04/15/22 09:07 Dose: 400 mg Melatonin (Melatonin 3 Mg Tab) 3 mg PO HS PRN PRN Reason: Sleep Stop: 05/10/22 21:44 Last Admin: 04/14/22 20:35 Dose: 3 mg Metolazone (Metolazone 2.5 Mg Tablet) 2.5 mg PO MoWeFr@0900 [facility] Stop: 05/08/22 08:59 Last Admin: 04/15/22 09:08 Dose: 2.5 mg Metoprolol Succinate (Metoprolol Succ 25mg Ext Rel Tab) 75 mg PO BID [facility] Stop: 05/07/22 21:57 Last Admin: 04/15/22 09:09 Dose: 75 mg Miscellaneous (Remove Nicoderm Patch) 1 each N/A DAILY@59 [facility] Stop: 05/08/22 08:58 Last Admin: 04/15/22 08:53 Dose: 1 each Miscellaneous (Carbohydrates For Hypoglycemia ) 15 - 30 gm PO UD PRN PRN Reason: Hypoglycemia Treatment Stop: 05/07/22 22:44 Miscellaneous Information (Pharmacy Glycemic Mgmt Consult) 1 each N/A UD PRN PRN Reason: Consult Stop: 05/14/22 11:56 Nicotine (Nicotine 21 Mg/24 Hr Tdsy) 21 mg TD DAILY [facility] Stop: 05/07/22 21:57 Last Admin: 04/15/22 09:10 Dose: 21 mg Nitroglycerin (Nitroglycerin Sl 0.4 Mg/Tab Tab) 0.4 mg SL UD PRN PRN Reason: Chest Pain Stop: 05/07/22 21:57 Nystatin (Nystatin Powder 15gm Btl) 1 appln EXT TID PRN PRN Reason: Skin Irritation Stop: 05/07/22 21:57 Ondansetron HCl (Ondansetron 4 Mg Od Tab) 4 mg PO Q8H PRN PRN Reason: NAUSEA/VOMITING Stop: 05/07/22 22:21 Pantoprazole Sodium (Pantoprazole 40 Mg Tab) 40 mg PO DAILYBB [facility] Stop: 05/08/22 06:29 Last Admin: 04/15/22 06:23 Dose: 40 mg Polyethylene Glycol (Polyethylene (Miralax) 17 Gm Pack) 17 gm PO BID [facility] Stop: 05/12/22 20:59 Last Admin: 04/15/22 09:11 Dose: 17 gm Potassium Chloride (Potassium Chloride Crtab 20 Meq Tabcr) 20 meq PO BID [facility] Stop: 05/07/22 21:57 Last Admin: 04/15/22 10:06 Dose: 20 meq Prednisone (Prednisone 20 Mg Tab) 40 mg PO DAILY [facility] Stop: 05/14/22 11:59 Last Admin: 04/15/22 09:12 Dose: 40 mg Sennosides (Senna 8.6 Mg Tab) 8.6 mg PO BID [facility] Stop: 05/12/22 09:59 Last Admin: 04/15/22 09:12 Dose: 8.6 mg Spironolactone (Spironolactone 25 Mg Tab) 25 mg PO QAM [facility] Stop: 05/08/22 08:59 Last Admin: 04/15/22 09:12 Dose: 25 mg Tamsulosin HCl (Tamsulosin Hcl 0.4 Mg Cap) 0.8 mg PO QAM [facility] Stop: 05/08/22 08:59 Last Admin: 04/15/22 09:13 Dose: 0.8 mg Umeclidinium [place] (Umeclidinium [place] 62.5mcg/Blister 7 Puffs/Inhaler) [facility] Stop: 05/08/22 08:59 Last Admin: 04/15/22 11:25 Dose: 1 puffs Warfarin Sodium (Warfarin Sod 10 Mg Tab) 10 mg PO DAILY@1600 [facility] Stop: 05/14/22 15:59 Last Admin: 04/14/22 17:32 Dose: 10 mg (1) COPD (chronic obstructive pulmonary disease) COPD type: COPD with acute exacerbation Qualified Code(s): J44.1 - Chronic obstructive pulmonary disease with (acute) exacerbation
--- NOTE | 2022-04-15 16:03 | XRay Report ---
XR chest 1V portable HISTORY: 51 years-old Male r/o pneumonia acute shortness of breath COMPARISON: 04/07/2022 TECHNIQUE: AP view of the chest FINDINGS: Cardiac silhouette is enlarged. Pulmonary vascular congestion redemonstrated. No pneumothorax. Probab le trace pleural effusions with mild bibasilar opacities. Chronic left clavicular fracture deformity. Degenerative changes of the shoulders and spine. IMPRESSION: 1. Cardiomegaly with pulmonary vascular congestion. 2. Probable trace pleural effusions. ACT 112: Negative or not required by law. The above report was generated using voice recognition software. It may contain grammatical, syntax o r spelling errors. Electronically signed by: Shelton Apodaca M.D. 04/15/2022 4:00 PM
[2022-04-15] MEDS: WARFARIN SOD 10 MG TAB PO SCH (16:24)
[2022-04-15] MEDS: FUROSEMIDE 40 MG/4 ML VIAL IV SCH (16:56)
[2022-04-15] MEDS: LANTUS PER UNIT CHARGE SQ SCH (20:16)
[2022-04-15] MEDS: MELATONIN 3 MG TAB PO PRN (20:16)
[2022-04-15] MEDS: ATORVASTATIN 40 MG TAB PO SCH (20:18)
[2022-04-16 06:16] LABS: Hematocrit (blood only) 42.2 % (40.1-51.0); Hemoglobin 13.5 g/dl (14.0-18.0); Mean Corpuscular Hemoglobin 25.5 pg (25.0-34.0); Mean Corpuscular Volume 79.8 fL (80.0-100.0); Mean Platelet Volume 10.4 fL (9.4-12.4); Platelet Count 251 K/uL (130-400); RDW Standard Deviation 47.9 fL (36.4-46.3); Red Blood Count 5.29 M/uL (4.63-6.08); White Blood Count 19.55 K/ul (4.8-10.8)
[2022-04-16 06:24] LABS: INR 2.5 (0.9-1.1)
[2022-04-16] MEDS: PANTOprazole 40 MG TAB PO SCH (06:39)
[2022-04-16 06:45] LABS: BUN Creatinine Ratio 29.5 (10-20); Creatinine Clr Calc Pharmacy 147.8 ml/min; Est GFR (African American) 94.8 ml/min; Est GFR (Non-African American) 81.8 ml/min; Magnesium 2.1 mg/dl (1.7-2.4); Potassium 3.5 mmol/L (3.5-5.1)
[2022-04-16 07:23] LABS: Basophils # (auto) 0.09 K/uL (0-0.2); Basophils % (auto) 0.5 %; Eosinophils # (auto) 0.08 K/uL (0-0.50); Eosinophils % (auto) 0.4 %; Immature Granulocytes # (auto) 0.26 K/uL (0.00-0.02); Immature Granulocytes % (auto) 1.3 %; Lymphocytes % (auto) 30.7 %; Microcytosis Present; Monocytes # (auto) 1.46 K/uL (0.24-0.82); Monocytes % (auto) 7.5 %; Neutrophils # (auto) 11.66 K/uL (1.4-6.5); Neutrophils % (auto) 59.6 %
[2022-04-16] MEDS: ASPIRIN 81 MG ECTAB PO SCH (07:58)
[2022-04-16] MEDS: buprenorphine HCL 8 MG SUBL SL SCH ×3 (07:58→20:32)
[2022-04-16] MEDS: predniSONE 20 MG TAB PO SCH (07:58)
[2022-04-16] MEDS: FAMOTIDINE 20 MG TAB PO SCH (07:58)
[2022-04-16] MEDS: ADVANCED PROBIOTIC 1250 MG CAPSULE PO SCH ×3 (07:58→20:35)
[2022-04-16] MEDS: SPIRONOLACTONE 25 MG TAB PO SCH (07:59)
[2022-04-16] MEDS: TAMSULOSIN HCL 0.4 MG CAP PO SCH (07:59)
[2022-04-16] MEDS: MAGNESIUM OXIDE 400 MG TAB PO SCH (07:59)
[2022-04-16] MEDS: METOPROLOL SUCC 25MG EXT REL TAB PO SCH ×2 (07:59→20:33)
[2022-04-16] MEDS: DOCUSATE SODIUM 100 MG CAP PO SCH ×2 (07:59→20:34)
[2022-04-16] MEDS: FINASTERIDE 5 MG TAB PO SCH (07:59)
[2022-04-16] MEDS: ISOSORBIDE DINITRATE 10 MG TAB PO SCH (07:59)
[2022-04-16] MEDS: LORazepam 0.5 MG TAB PO PRN ×2 (08:00→20:32)
[2022-04-16] MEDS: FOLIC ACID 1 MG TAB PO SCH (08:00)
[2022-04-16] MEDS: CYCLOBENZAPRINE HCL 10 MG TAB PO PRN ×2 (08:00→20:32)
[2022-04-16] MEDS: SENNA 8.6 MG TAB PO SCH ×2 (08:00→20:35)
[2022-04-16] MEDS: guaiFENesin 600 MG TABCR PO SCH ×2 (08:00→20:35)
[2022-04-16] MEDS: POTASSIUM CHLORIDE CRTAB 20 MEQ TABCR PO SCH ×2 (08:00→20:32)
[2022-04-16] MEDS: DULoxetine HCL 60 MG CAP PO SCH (08:00)
[2022-04-16] MEDS: GABAPENTIN 800 MG TAB PO SCH ×3 (08:00→20:34)
[2022-04-16] MEDS: FERROUS SULFATE 325 MG TAB PO SCH (08:00)
[2022-04-16] MEDS: NICOTINE 21 MG/24 HR TDSY TD SCH (08:01)
[2022-04-16] MEDS: POLYETHYLENE (MIRALAX) 17 GM PACK PO SCH ×3 (08:04→20:38)
[2022-04-16] MEDS: INSULIN ASPART PER UNIT SC SCH ×4 (08:10→20:31)
[2022-04-16] MEDS: FUROSEMIDE 40 MG/4 ML VIAL IV SCH ×2 (08:11→16:37)
[2022-04-16] MEDS: UMECLIDINIUM BROMIDE 62.5MCG/BLISTER 7 PUFFS/INHALER INH SCH (08:11)
[2022-04-16] MEDS: ENOXAPARIN INJ 40 MG/0.4 ML SYR SQ SCH ×2 (08:11→20:33)
[2022-04-16] MEDS: FLUTICASONE PROPIONATE NA SPR 16 GM BTL SCH (08:13)
[2022-04-16] MEDS: ACETAMINOPHEN 1,000 MG/100 ML VIAL IV PRN ×2 (08:16→17:41)
[2022-04-16] MEDS ORDERED: INSULIN HUMAN NPH SC SCH (09:00)
--- NOTE | 2022-04-16 12:01 | Pharmacy Report ---
Pharmacy Glycemic Short Note 2 - Date of Service April 16, 2022 - Glycemic Short BSG Results (Last 24 hours): 04/15/22 04/15/22 04/16/22 16:22 19:46 05:27 Glucose 94 POC Glucose 159 H 195 H 04/16/22 04/16/22 07:37 11:27 Glucose POC Glucose 94 180 H OUTPATIENT ANTIDIABETIC REGIMEN: * Lantus 50 units SQ qHS * Novolog SQ TID with meals * Glipizide 10mg PO BID * HbA1c: 7.4% (04/08/22) ASSESSMENT: * BSGs yesterday were [phone] mg/dL. Patient received 171 units of insulin (100 units of basal with 50 units of Lantus and 50 units of NPH + 71 units of Novolog). * Fasting today is 94 mg/dL which is decreased from 140 mg/dL yesterday. Reduce both basal insulins by 20% to prevent hypoglycemia. * Tighten CR substantially due to decreased NPH. BASELINE * Mr Milner is a 51yo diabetic male admitted 04/07 with chest pain. * Over the course of admission, he has received high-dose steroids. As a result, pt has been hyperglycemic. Glycemic consult rec'd today. * Pt was switched from SoluMedrol 40mg IV q8h --> prednisone 40mg PO daily (first dose this afternoon). * Pt appears to be tolerating his diabetic diet. PLAN FOR INPATIENT GLYCEMIC CONTROL: * Hold outpatient oral diabetes medications * Basal insulin * Continue Lantus 40 units SQ HS * Add NPH 40 units daily, to be administered with prednisone * Bolus insulin * NovoLog per scale ACHS or Q6hrs while NPO * Goal Range: Low 110 mg/dL - High 140 mg/dL * Correction Factor: 15 mg/dL/unit * Nutritional / Prandial insulin per carb ratio of 1 unit per 2.5 grams CHO consumed
[2022-04-16] MEDS: levoFLOXacin/D5W 750 MG/150 ML BAG IV SCH (12:02)
--- NOTE | 2022-04-16 12:55 | Hospitalist Progress Note ---
Date of Service April 16, 2022 Assessment & Plan (1) Acute on chronic diastolic (congestive) heart failure: (2) 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: (3) COPD (chronic obstructive pulmonary disease): (4) History of pulmonary embolism: Plan 51-year-old male with h/o chronic diastolic CHF on lasix/metolazone, h/o PE on chronic coumadin, h/o left ear bleeding a week ago and off of coumadin since who presented to the ED 04/07 with shortness of breath and weight gain Acute on chronic diastolic congestive heart failure- due to dietary indiscretion and possible medication non compliance. BNP normal. - continue iv lasix 40 bid, metolazone, aldactone, continue daily weight, strict I and O, daily weight. - Cr and electrolytes stable. Diuresing well. Wt 206 kg->204->204->201->198->199->199->198->196. Baseline wt of around 193 kg. - Cardio following -Negative balance about 20 L -The patient is still feels edematous -We will continue IV Lasix as long as he is in the hospital -We will get PT and OT evaluation prior to discharge -Feels bloated but does not have any acute shortness of breath -We will continue current management and likely discharge day after tomorrow Complains to have constipation Bowel did not move for the last 9 days Denies any symptoms Will try Fleet enema-bowel movement and he feels much better COPD with mild exacerbation- sputum clx with pseudomonas - s/p iv solumedrol with improvement and now back on prednisone started today. plan for short course of 5 days. - Sputum clx with pseudomonas pansensitive but allergic to cefepime and started on levaquin D1- change to po at discharge. monitor INR while on levaquin. - Continue home inhalers. He did not want nebs. -Still has some wheezing but has been saturating on room air -We will continue IV Levaquin for now and change to oral on discharge -Chest x-ray did not show any pneumonia but mild congestion History of pulmonary embolism:INR was therapeutic to 2 for 2 days but since then continues to trend down despite home dose of coumadin, INR 1.3 today. - will give 10 mg coumadin today and check INR in am for further dosing- monitor closely while on FQ - Continue sc lovenox for DVT ppx- If INR still does not improve significantly, consider full dose lovenox or heparin bridging until INR therapeutic - Per Epic review, his coumadin dose is 2.5 mg every wednesday and 5 mg on all other day per clinical pharmacist 04/07/22 -INR is 1.7 as of today and will continue with 10 mg Coumadin orally -INR is 2.5 and will give his usual dose of Coumadin 5 mg daily Benign prostatic hypertrophy with urinary retention - seen by uro and placed on fontaine 04/09 which was difficult catheterization- suspected stricture vs false passage- s/p bactrim 1 dose as per uro recommendation. UA unremarkable. - Uro recommended to continue fontaine at discharge and OP follow up. - Continue Flomax, proscar -He has been complaining of some pain involving the catheter insertion DM-2 with hyperglycemia worsened by steroids: A1c 7.4. Continue his Lantus, SSI, hold glipizide- SSI adjusted further given significant prandial hyperglycemia due to steroids- should improve once steroid is done. - Glycemic pharmacist consulted. Left ear bleeding a week ago [employer] in setting of supratherapeutic INR- coumadin on hold since, now subtherapeutic. No more bleeding. CT shows no blood but pansinusitis and mild left mastoiditis but no tenderness or clinical symptoms. On ear drops. Monitor. Seen by ENT- only some dried blood otherwise unremarkable and no further treatment needed Right eye blurriness- states for past week [employer] since the left ear bleed and has remained stable since ?from DM. Pending ophthal eval. Morbid obesity: BMI 61. Recommend weight loss Nocturnal hypoxia: On 4 liters at night while sleeping. continue Tobacco abuse: Nicotine patch, recommend quitting Chronic back pain: Continue home subutex, cymbalta.continue tylenol No narcotics will be prescribed CAD- stable, no chest pain, tropx 3 neg. Continue aspirin, statin, beta nasim and nitrate. Seen by cardio No acute cardiac symptoms Leucocytosis- worsening, could be from steroids and pseudomonal infection. monitor. Will get chest x-ray to make sure there is no pneumonia Leukocytosis likely secondary to use of steroid DVT ppx- coumadin- sc lovenox until INR therapeutic Dispo- On iv diuresis for volume optimization. Likely discharge on Wednesday Admission and Anticipated Discharge Date Admission Date: April 07, 2022 Subjective 04/15/2022 The patient was seen and examined in medical telemetry unit He has been complaining of still having edema and wheezing at times Has not moved his bowels since last Wednesday which is more than 9 days Denies any abdominal pain, nausea and or vomiting 04/16/2022 Patient was seen and examined in medical telemetry unit He has not been feeling any better today and feels bloated Minimal shortness of breath at rest and minimal wheezing Has been participating in physical therapy Review of Systems Review of Systems: All systems reviewed and are unremarkable except as noted below Physical Exam Physical Exam: Lying in bed comfortably Constitutional: well developed, well nourished, + ill appearing and + obese Eyes: PERRL, conjunctivae normal, anicteric sclerae ENMT: external ear and nose normal, oropharynx normal Neck: trachea midline, no thyromegaly Respiratory: no respiratory distress Auscultation: + diminished lung sounds, + crackles (Minimal bibasilar crackles) and + wheezes (Wheezing anteriorly) Cardiovascular: Rate/Rhythm: regular rate and regular rhythm; not tachycardic Heart Sounds: normal S1 and normal S2; no murmur Extremities: + edema (1+ edema bilaterally) Gastrointestinal (Abdomen): Inspection/Auscultation: + abdomen distended and normal bowel sounds Percussion/Palpation: abdomen soft; abdomen nontender Musculoskeletal: No acute arthritis in any joint Neurologic: Alert, 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. No focal sensory or motor deficit appreciated Psychiatric: A+Ox3, euthymic affect Lymphatic: no cervical or axillary lymphadenopathy Results & Data Results & Data ([facility]) Vital Signs (Past 12 Hours) Vital Signs Temp Pulse Pulse Resp BP BP Pulse Ox 04/16/22 11:27 04/16/22 11:15 36.6 C 61 20 144/76 H 95 04/16/22 07:49 49 L 04/16/22 07:48 36.3 C L 49 L 20 133/75 97 04/16/22 04:00 36.4 C L 50 L 18 118/63 98 O2 Del Method O2 Flow Rate 04/16/22 11:27 Nasal Cannula 2 04/16/22 11:15 04/16/22 07:49 04/16/22 07:48 04/16/22 04:00 Nasal Cannula Laboratory Results Short CBC 04/16/22 Range/Units 05:27 WBC 19.55 H (4.8-10.8) K/ul Hgb 13.5 L (14.0-18.0) g/dl Hct 42.2 (40.1-51.0) % Plt Count 251 (130-400) K/uL BMP 04/16/22 05:27 Sodium 138 Potassium 3.5 Chloride 97 L Carbon Dioxide 35 H BUN 31 H Creatinine 1.05 Glucose 94 Calcium 10.0 Medications Administered Current Inpatient Medications Albuterol (Albut/Ipratrop 3mg/0.5mg Neb 3 Ml Vial) 3 ml INH Q6H PRN; Protocol PRN Reason: Shortness Of Breath Or Wheezing Stop: 05/07/22 21:57 Albuterol (Albuterol Hfa 8 Gm Inhaler) 2 puffs INH Q4H PRN PRN Reason: dyspnea, wheezing Stop: 05/10/22 10:51 Last Admin: 04/13/22 21:29 Dose: 2 puffs Aspirin (Aspirin 81 Mg Ectab) 81 mg PO QAM [facility] Stop: 05/08/22 08:59 Last Admin: 04/16/22 07:58 Dose: 81 mg Atorvastatin Calcium (Atorvastatin 40 Mg Tab) 80 mg PO QPM [facility] Stop: 05/07/22 21:57 Last Admin: 04/15/22 20:18 Dose: 80 mg Benzonatate (Benzonatate 100 Mg Capsule) 100 mg PO TID PRN PRN Reason: cough Stop: 05/07/22 21:57 Last Admin: 04/11/22 08:38 Dose: 100 mg Buprenorphine HCl (Buprenorphine Hcl 8 Mg Subl) 8 mg SL TID [facility]AT[facility]Z Stop: 05/07/22 21:57 Last Admin: 04/16/22 07:58 Dose: 8 mg Cyclobenzaprine HCl (Cyclobenzaprine Hcl 10 Mg Tab) 10 mg PO BID PRN PRN Reason: Muscle Spasm Stop: 05/07/22 21:57 Last Admin: 04/16/22 08:00 Dose: 10 mg Dextrose (Dextrose 50% 50 Ml Syringe) 25 - 50 ml IV UD PRN; Protocol PRN Reason: Hypoglycemia Protocol Stop: 05/07/22 22:44 Docusate Sodium (Docusate Sodium 100 Mg Cap) 200 mg PO BID EMPERATRIZ Stop: 05/12/22 20:59 Last Admin: 04/16/22 07:59 Dose: 200 mg Duloxetine HCl (Duloxetine Hcl 60 Mg Cap) 60 mg PO DAILY E[facility]AT[facility] Stop: 05/08/22 08:59 Last Admin: 04/16/22 08:00 Dose: 60 mg Enoxaparin Sodium (Enoxaparin Inj 40 Mg/0.4 Ml Syr) 40 mg SQ BID [facility]AT[facility]Z Stop: 05/13/22 08:59 Last Admin: 04/16/22 08:11 Dose: 40 mg Famotidine (Famotidine 20 Mg Tab) 20 mg PO DAILY EMP[facility]ATRIZ Stop: 05/08/22 08:59 Last Admin: 04/16/22 07:58 Dose: 20 mg Ferrous Sulfate (Ferrous Sulfate 325 Mg Tab) 325 mg PO QAM [facility] Stop: 05/08/22 08:59 Last Admin: 04/16/22 08:00 Dose: 325 mg Finasteride (Finasteride 5 Mg Tab) 5 mg PO QAM [facility] Stop: 05/08/22 08:59 Last Admin: 04/16/22 07:59 Dose: 5 mg Fluticasone Propionate (Fluticasone Propionate Na Spr 16 Gm Btl) 2 sprays NA DAILY [facility] Stop: 05/08/22 08:59 Last Admin: 04/16/22 08:13 Dose: 2 sprays Folic Acid (Folic Acid 1 Mg Tab) 1 mg PO QAM [facility] Stop: 05/08/22 08:59 Last Admin: 04/16/22 08:00 Dose: 1 mg Furosemide (Furosemide 40 Mg/4 Ml Vial) 40 mg IV BIDM [facility] Stop: 05/08/22 08:59 Last Admin: 04/16/22 08:11 Dose: 40 mg Gabapentin (Gabapentin 800 Mg Tab) 800 mg PO TID [facility]MPERAT[facility]Z Stop: 05/07/22 21:57 Last Admin: 04/16/22 08:00 Dose: 800 mg Glucagon (Glucagon For Inj 1 Mg Vial) 1 mg IM UD PRN; Protocol PRN Reason: Hypoglycemia Protocol Stop: 05/07/22 22:44 Glucose (Glucose 40% Gel 15 Gm Tube) 15 - 30 gm PO UD PRN; Protocol PRN Reason: Hypoglycemia Protocol Stop: 05/07/22 22:44 Glucose (Glucose 10 Tab/Tube) 4 - 8 tab PO UD PRN; Protocol PRN Reason: Hypoglycemia Protocol Stop: 05/07/22 22:44 Guaifenesin (Guaifenesin 600 Mg Tabcr) 1,200 mg PO BID [facility] Stop: 05/07/22 21:57 Last Admin: 04/16/22 08:00 Dose: 1,200 mg Hydroxyzine HCl (Hydroxyzine Hcl 25 Mg Tab) 25 mg PO QID PRN PRN Reason: Anxiety Stop: 05/07/22 21:57 Levofloxacin/Dextrose (Levaquin/D5w) 750 mg in 150 mls @ 100 mls/hr IV Q24H [facility] Stop: 04/21/22 11:29 Last Admin: 04/16/22 12:02 Dose: 100 mls/hr Acetaminophen (Ofirmev) 1,000 mg in 100 mls @ 400 mls/hr IV Q8H PRN PRN Reason: pain/fever Stop: 04/17/22 21:07 Last Infusion: 04/16/22 08:32 Dose: Infused Insulin Aspart (Insulin Aspart Per Unit) 0 units SC ACHS [facility] Stop: 05/07/22 21:57 Last Admin: 04/16/22 12:01 Dose: 41 units Insulin Glargine (Lantus Per Unit Charge) 50 units SQ HS [facility] Stop: 05/07/22 21:57 Last Admin: 04/15/22 20:16 Dose: 50 units Insulin Human NPH (Insulin Human Nph) 40 units SC DAILY [facility] Stop: 05/16/22 08:59 Last Admin: 04/16/22 08:11 Dose: 40 units Isosorbide Dinitrate (Isosorbide Dinitrate 10 Mg Tab) 30 mg PO DAILY [facility] Stop: 05/08/22 08:59 Last Admin: 04/16/22 07:59 Dose: 30 mg Lactobacillus Acidophilus (Advanced Probiotic 1250 Mg Capsule) 1 cap PO TID [facility] Stop: 05/07/22 21:57 Last Admin: 04/16/22 07:58 Dose: 1 cap Lorazepam (Lorazepam 0.5 Mg Tab) 0.5 mg PO Q8 PRN PRN Reason: Anxiety Stop: 05/07/22 21:57 Last Admin: 04/16/22 08:00 Dose: 0.5 mg Magnesium Oxide (Magnesium Oxide 400 Mg Tab) 400 mg PO DAILY [facility] Stop: 05/08/22 08:59 Last Admin: 04/16/22 07:59 Dose: 400 mg Melatonin (Melatonin 3 Mg Tab) 3 mg PO HS PRN PRN Reason: Sleep Stop: 05/10/22 21:44 Last Admin: 04/15/22 20:16 Dose: 3 mg Metolazone (Metolazone 2.5 Mg Tablet) 2.5 mg PO MoWeFr@0900 [facility] Stop: 05/08/22 08:59 Last Admin: 04/15/22 09:08 Dose: 2.5 mg Metoprolol Succinate (Metoprolol Succ 25mg Ext Rel Tab) 75 mg PO BID [facility] Stop: 05/07/22 21:57 Last Admin: 04/16/22 07:59 Dose: 75 mg Miscellaneous (Remove Nicoderm Patch) 1 each N/A DAILY@0859 [facility] Stop: 05/08/22 08:58 Last Admin: 04/16/22 08:01 Dose: 1 each Miscellaneous (Carbohydrates For Hypoglycemia ) 15 - 30 gm PO UD PRN PRN Reason: Hypoglycemia Treatment Stop: 05/07/22 22:44 Miscellaneous Information (Pharmacy Glycemic Mgmt Consult) 1 each N/A UD PRN PRN Reason: Consult Stop: 05/14/22 11:56 Nicotine (Nicotine 21 Mg/24 Hr Tdsy) 21 mg TD DAILY [facility] Stop: 05/07/22 21:57 Last Admin: 04/16/22 08:01 Dose: 21 mg Nitroglycerin (Nitroglycerin Sl 0.4 Mg/Tab Tab) 0.4 mg SL UD PRN PRN Reason: Chest Pain Stop: 05/07/22 21:57 Nystatin (Nystatin Powder 15gm Btl) 1 appln EXT TID PRN PRN Reason: Skin Irritation Stop: 05/07/22 21:57 Ondansetron HCl (Ondansetron 4 Mg Od Tab) 4 mg PO Q8H PRN PRN Reason: NAUSEA/VOMITING Stop: 05/07/22 22:21 Pantoprazole Sodium (Pantoprazole 40 Mg Tab) 40 mg PO DAILYBB [facility] Stop: 05/08/22 06:29 Last Admin: 04/16/22 06:39 Dose: 40 mg Polyethylene Glycol (Polyethylene (Miralax) 17 Gm Pack) 17 gm PO BID [facility] Stop: 05/12/22 20:59 Last Admin: 04/16/22 08:04 Dose: Not Given Potassium Chloride (Potassium Chloride Crtab 20 Meq Tabcr) 20 meq PO BID [facility] Stop: 05/07/22 21:57 Last Admin: 04/16/22 08:00 Dose: 20 meq Prednisone (Prednisone 20 Mg Tab) 40 mg PO DAILY [facility] Stop: 05/14/22 11:59 Last Admin: 04/16/22 07:58 Dose: 40 mg Sennosides (Senna 8.6 Mg Tab) 8.6 mg PO BID [facility] Stop: 05/12/22 09:59 Last Admin: 04/16/22 08:00 Dose: 8.6 mg Spironolactone (Spironolactone 25 Mg Tab) 25 mg PO QAM [facility] Stop: 05/08/22 08:59 Last Admin: 04/16/22 07:59 Dose: 25 mg Tamsulosin HCl (Tamsulosin Hcl 0.4 Mg Cap) 0.8 mg PO QAM [facility] Stop: 05/08/22 08:59 Last Admin: 04/16/22 07:59 Dose: 0.8 mg Umeclidinium Mchenry (Umeclidinium Mchenry 62.5mcg/Blister 7 Puffs/Inhaler) 1 puffs INH QAM [facility] Stop: 05/08/22 08:59 Last Admin: 04/16/22 08:11 Dose: 1 puffs Warfarin Sodium (Warfarin Sod 5 Mg Tab) 5 mg PO DAILY@1600 [facility] Stop: 05/16/22 15:59 (1) COPD (chronic obstructive pulmonary disease) COPD type: COPD with acute exacerbation Qualified Code(s): J44.1 - Chronic obstructive pulmonary disease with (acute) exacerbation
[2022-04-16] MEDS ORDERED: WARFARIN SOD 5 MG TAB PO SCH (16:00)
[2022-04-16] MEDS: MELATONIN 3 MG TAB PO PRN (20:32)
[2022-04-16] MEDS: ATORVASTATIN 40 MG TAB PO SCH (20:36)
[2022-04-16] MEDS ORDERED: LANTUS PER UNIT CHARGE SQ SCH (21:00)
[2022-04-17] MEDS: ACETAMINOPHEN 1,000 MG/100 ML VIAL IV PRN ×3 (02:54→19:32)
[2022-04-17] MEDS: PANTOprazole 40 MG TAB PO SCH (05:33)
[2022-04-17 06:32] LABS: INR 2.9 (0.9-1.1); Prothrombin Time 29.1 Seconds (9.0-12.0)
[2022-04-17 06:55] LABS: BUN Creatinine Ratio 29.2 (10-20); Calcium 9.7 mg/dl (8.5-10.1); Est GFR (African American) 80.7 ml/min; Est GFR (Non-African American) 69.6 ml/min; Potassium 3.1 mmol/L (3.5-5.1)
[2022-04-17] MEDS ORDERED: POTASSIUM CHLORIDE CRTAB 20 MEQ TABCR PO STA (07:49)
[2022-04-17] MEDS: INSULIN ASPART PER UNIT SC SCH ×4 (08:46→21:55)
[2022-04-17] MEDS: ENOXAPARIN INJ 40 MG/0.4 ML SYR SQ SCH ×2 (08:55→20:11)
[2022-04-17] MEDS ORDERED: INSULIN HUMAN NPH SC SCH (09:00)
[2022-04-17] MEDS: DOCUSATE SODIUM 100 MG CAP PO SCH ×2 (09:19→20:11)
[2022-04-17] MEDS: ASPIRIN 81 MG ECTAB PO SCH (09:19)
[2022-04-17] MEDS: DULoxetine HCL 60 MG CAP PO SCH (09:20)
[2022-04-17] MEDS: FERROUS SULFATE 325 MG TAB PO SCH (09:21)
[2022-04-17] MEDS: FAMOTIDINE 20 MG TAB PO SCH (09:21)
[2022-04-17] MEDS: FOLIC ACID 1 MG TAB PO SCH (09:21)
[2022-04-17] MEDS: FINASTERIDE 5 MG TAB PO SCH (09:21)
[2022-04-17] MEDS: guaiFENesin 600 MG TABCR PO SCH ×2 (09:22→20:13)
[2022-04-17] MEDS: GABAPENTIN 800 MG TAB PO SCH ×3 (09:22→20:12)
[2022-04-17] MEDS: ISOSORBIDE DINITRATE 10 MG TAB PO SCH (09:22)
[2022-04-17] MEDS: metOLazone 2.5 MG TABLET PO SCH (09:23)
[2022-04-17] MEDS: MAGNESIUM OXIDE 400 MG TAB PO SCH (09:23)
[2022-04-17] MEDS: ADVANCED PROBIOTIC 1250 MG CAPSULE PO SCH ×3 (09:23→20:14)
[2022-04-17] MEDS: METOPROLOL SUCC 25MG EXT REL TAB PO SCH ×2 (09:25→20:15)
[2022-04-17] MEDS: POTASSIUM CHLORIDE CRTAB 20 MEQ TABCR PO SCH ×2 (09:26→22:02)
[2022-04-17] MEDS: predniSONE 20 MG TAB PO SCH (09:26)
[2022-04-17] MEDS: SENNA 8.6 MG TAB PO SCH ×2 (09:27→20:16)
[2022-04-17] MEDS: SPIRONOLACTONE 25 MG TAB PO SCH (09:29)
[2022-04-17] MEDS: TAMSULOSIN HCL 0.4 MG CAP PO SCH (09:29)
[2022-04-17] MEDS: LORazepam 0.5 MG TAB PO PRN ×2 (09:30→21:36)
[2022-04-17] MEDS: CYCLOBENZAPRINE HCL 10 MG TAB PO PRN ×2 (09:30→21:36)
[2022-04-17] MEDS: buprenorphine HCL 8 MG SUBL SL SCH ×3 (09:30→21:36)
[2022-04-17] MEDS: UMECLIDINIUM BROMIDE 62.5MCG/BLISTER 7 PUFFS/INHALER INH SCH (09:31)
[2022-04-17] MEDS: POLYETHYLENE (MIRALAX) 17 GM PACK PO SCH ×2 (09:31→20:15)
[2022-04-17] MEDS: FLUTICASONE PROPIONATE NA SPR 16 GM BTL SCH (09:32)
[2022-04-17] MEDS: NICOTINE 21 MG/24 HR TDSY TD SCH (09:43)
[2022-04-17] MEDS: FUROSEMIDE 40 MG/4 ML VIAL IV SCH ×2 (10:05→17:20)
[2022-04-17] MEDS: levoFLOXacin/D5W 750 MG/150 ML BAG IV SCH (11:31)
--- NOTE | 2022-04-17 12:20 | Pharmacy Report ---
Pharmacy Glycemic Short Note 2 - Date of Service April 17, 2022 - Glycemic Short BSG Results (Last 24 hours): 04/16/22 04/16/22 04/17/22 16:38 20:03 05:30 Glucose 67 L POC Glucose 176 H 159 H 04/17/22 04/17/22 07:39 11:20 Glucose POC Glucose 78 109 H OUTPATIENT ANTIDIABETIC REGIMEN: * Lantus 50 units SQ qHS * Novolog SQ TID with meals * Glipizide 10mg PO BID * HbA1c: 7.4% (04/08/22) ASSESSMENT: 04/17 * BSGs yesterday were [phone] mg/dL. Patient received 217 units of insulin (80 of basal (40 each of lantus/NPH)) * Fasting today 78 mg/dL; continues with pred 40 mg. Will reduce NPH by 50% and lantus by 20% * Continue current novolog parameters 04/16 * BSGs yesterday were [phone] mg/dL. Patient received 171 units of insulin (100 units of basal with 50 units of Lantus and 50 units of NPH + 71 units of Novolog). * Fasting today is 94 mg/dL which is decreased from 140 mg/dL yesterday. Reduce both basal insulins by 20% to prevent hypoglycemia. * Tighten CR substantially due to decreased NPH. BASELINE * Mr Milner is a 51yo diabetic male admitted 04/07 with chest pain. * Over the course of admission, he has received high-dose steroids. As a re sult, pt has been hyperglycemic. Glycemic consult rec'd today. * Pt was switched from SoluMedrol 40mg IV q8h --> prednisone 40mg PO daily (first dose this afternoon). * Pt appears to be tolerating his diabetic diet. PLAN FOR INPATIENT GLYCEMIC CONTROL: * Hold outpatient oral diabetes medications * Basal insulin * Continue Lantus 32 units SQ HS * Add NPH 20 units daily, to be administered with prednisone * Bolus insulin * NovoLog per scale ACHS or Q6hrs while NPO * Goal Range: Low 110 mg/dL - High 140 mg/dL * Correction Factor: 15 mg/dL/unit * Nutritional / Prandial insulin per carb ratio of 1 unit per 2.5 grams CHO consumed
--- NOTE | 2022-04-17 15:15 | Hospitalist Progress Note ---
Date of Service April 17, 2022 Assessment & Plan (1) Acute on chronic diastolic (congestive) heart failure: (2) 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: (3) COPD (chronic obstructive pulmonary disease): (4) History of pulmonary embolism: Plan 51-year-old male with h/o chronic diastolic CHF on lasix/metolazone, h/o PE on chronic coumadin, h/o left ear bleeding a week ago and off of coumadin since who presented to the ED 04/07 with shortness of breath and weight gain Acute on chronic diastolic congestive heart failure- due to dietary indiscretion and possible medication non compliance. BNP normal. - continue iv lasix 40 bid, metolazone, aldactone, continue daily weight, strict I and O, daily weight. - Cr and electrolytes stable. Diuresing well. Wt 206 kg->204->204->201->198->199->199->198->196. Baseline wt of around 193 kg. - Cardio following -Negative balance about 20 L -The patient is still feels edematous -We will continue IV Lasix as long as he is in the hospital -We will get PT and OT evaluation prior to discharge -Feels bloated but does not have any acute shortness of breath -Not much difference as of today-we will continue current doses of Lasix -Monitor PRP supplement any electrolytes if low Complains to have constipation Bowel did not move for the last 9 days Denies any symptoms Will try Fleet enema-bowel movement and he feels much better COPD with mild exacerbation- sputum clx with pseudomonas - s/p iv solumedrol with improvement and now back on prednisone started today. plan for short course of 5 days. - Sputum clx with pseudomonas pansensitive but allergic to cefepime and started on levaquin D1- change to po at discharge. monitor INR while on levaquin. - Continue home inhalers. He did not want nebs. -Still has some wheezing but has been saturating on room air -We will continue IV Levaquin for now and change to oral on discharge -Chest x-ray did not show any pneumonia but mild congestion -Still has moderate wheezing and minimal bibasilar crackles History of pulmonary embolism:INR was therapeutic to 2 for 2 days but since then continues to trend down despite home dose of coumadin, INR 1.3 today. - will give 10 mg coumadin today and check INR in am for further dosing- monitor closely while on FQ - Continue sc lovenox for DVT ppx- If INR still does not improve significantly, consider full dose lovenox or heparin bridging until INR therapeutic - Per [facility] review, his coumadin dose is 2.5 mg every wednesday and 5 mg on all other day per clinical pharmacist 04/07/22 -INR is 1.7 as of today and will continue with 10 mg Coumadin orally -INR is 2.5 and will give his usual dose of Coumadin 5 mg daily -INR is 2.9 today and will give Coumadin 3 mg today and check INR tomorrow Benign prostatic hypertrophy with urinary retention - seen by uro and placed on fontaine 04/09 which was difficult catheterization- suspected stricture vs false passage- s/p bactrim 1 dose as per uro recommendation. UA unremarkable. - Uro recommended to continue fontaine at discharge and OP follow up. - Continue Flomax, proscar -He has been complaining of some pain involving the catheter insertion DM-2 with hyperglycemia worsened by steroids: A1c 7.4. Continue his Lantus, SSI, hold glipizide- SSI adjusted further given significant prandial hy perglycemia due to steroids- should improve once steroid is done. - Glycemic pharmacist consulted. Left ear bleeding a week ago [employer] in setting of supratherapeutic INR- coumadin on hold since, now subtherapeutic. No more bleeding. CT shows no blood but pansinusitis and mild left mastoiditis but no tenderness or clinical symptoms. On ear drops. Monitor. Seen by ENT- only some dried blood otherwise unremarkable and no further treatment needed Right eye blurriness- states for past week [employer] since the left ear bleed and has remained stable since ?from DM. Pending ophthal eval. Morbid obesity: BMI 61. Recommend weight loss Nocturnal hypoxia: On 4 liters at night while sleeping. continue Tobacco abuse: Nicotine patch, recommend quitting Chronic back pain: Continue home subutex, cymbalta.continue tylenol No narcotics will be prescribed CAD- stable, no chest pain, tropx 3 neg. Continue aspirin, statin, beta nasim and nitrate. Seen by cardio No acute cardiac symptoms Leucocytosis- worsening, could be from steroids and pseudomonal infection. monitor. Will get chest x-ray to make sure there is no pneumonia Leukocytosis likely secondary to use of steroid DVT ppx- coumadin- sc lovenox until INR therapeutic Dispo- On iv diuresis for volume optimization. Likely discharge in a day or 2-probably on Wednesday Admission and Anticipated Discharge Date Admission Date: April 07, 2022 Subjective 04/15/2022 The patient was seen and examined in medical telemetry unit He has been complaining of still having edema and wheezing at times Has not moved his bowels since last Wednesday which is more than 9 days Denies any abdominal pain, nausea and or vomiting 04/16/2022 Patient was seen and examined in medical telemetry unit He has not been feeling any better today and feels bloated Minimal shortness of breath at rest and minimal wheezing Has been participating in physical therapy 04/17/2022 The patient was seen and examined in medical telemetry unit, He has been complaining of more wheezing and bloated Denies any chest pain and no palpitation No shortness of breath at rest Review of Systems Review of Systems: All systems reviewed and are unremarkable except as noted below Physical Exam Physical Exam: Lying in bed comfortably Constitutional: well developed, well nourished, + ill appearing and + obese Eyes: PERRL, conjunctivae normal, anicteric sclerae ENMT: external ear and nose normal, oropharynx normal Neck: trachea midline, no thyromegaly Respiratory: no respiratory distress Auscultation: + diminished lung sounds, + crackles (Minimal bibasilar crackles) and + wheezes (Wheezing anteriorly) Cardiovascular: Rate/Rhythm: regular rate and regular rhythm; not tachycardic Heart Sounds: normal S1 and normal S2; no murmur Extremities: + edema (1+ edema bilaterally) Gastrointestinal (Abdomen): Inspection/Auscultation: + abdomen distended and normal bowel sounds Percussion/Palpation: abdomen soft; abdomen nontender Musculoskeletal: No acute arthritis in any joint Neurologic: normal touch/pain/proprioception, CN's II-XI intact bilaterally and moves all extremities Psychiatric: A+Ox3, euthymic affect Lymphatic: no cervical or axillary lymphadenopathy Results & Data Results & Data ([facility]) Vital Signs (Past 12 Hours) Vital Signs Temp Pulse Pulse Pulse Resp BP Pulse Ox 04/17/22 14:54 69 04/17/22 12:32 36.7 C 67 16 130/62 93 04/17/22 10:56 04/17/22 10:00 96 04/17/22 07:00 51 L 04/17/22 07:59 36.4 C L 60 16 139/79 96 04/17/22 04:28 36.0 C L 51 L 18 144/69 H 100 O2 Del Method O2 Flow Rate 04/17/22 14:54 04/17/22 12:32 Room Air 04/17/22 10:56 Nasal Cannula 2 04/17/22 10:00 Room Air 04/17/22 07:00 04/17/22 07:59 Nasal Cannula 2 04/17/22 04:28 Nasal Cannula 4 Laboratory Results BMP 04/17/22 05:30 Sodium 138 Potassium 3.1 L Chloride 95 L Carbon Dioxide 40 H BUN 35 H Creatinine 1.20 Glucose 67 L Calcium 9.7 Medications Administered Current Inpatient Medications Albuterol (Albut/Ipratrop 3mg/0.5mg Neb 3 Ml Vial) 3 ml INH Q6H PRN; Protocol PRN Reason: Shortness Of Breath Or Wheezing Stop: 05/07/22 21:57 Albuterol (Albuterol Hfa 8 Gm Inhaler) 2 puffs INH Q4H PRN PRN Reason: dyspnea, wheezing Stop: 05/10/22 10:51 Last Admin: 04/13/22 21:29 Dose: 2 puffs Aspirin (Aspirin 81 Mg Ectab) 81 mg PO QAM [facility] Stop: 05/08/22 08:59 Last Admin: 04/17/22 09:19 Dose: 81 mg Atorvastatin Calcium (Atorvastatin 40 Mg Tab) 80 mg PO QPM [facility]1983 Stop: 05/07/22 21:57 Last Admin: 04/16/22 20:36 Dose: 80 mg Benzonatate (Benzonatate 100 Mg Capsule) 100 mg PO TID PRN PRN Reason: cough Stop: 05/07/22 21:57 Last Admin: 04/11/22 08:38 Dose: 100 mg Buprenorphine HCl (Buprenorphine Hcl 8 Mg Subl) 8 mg SL TID EMPERATRIZ Stop: 05/07/22 21:57 Last Admin: 04/17/22 13:13 Dose: 8 mg Cyclobenzaprine HCl (Cyclobenzaprine Hcl 10 Mg Tab) 10 mg PO BID PRN PRN Reason: Muscle Spasm Stop: 05/07/22 21:57 Last Admin: 04/17/22 09:30 Dose: 10 mg Dextrose (Dextrose 50% 50 Ml Syringe) 25 - 50 ml IV UD PRN; Protocol PRN Reason: Hypoglycemia Protocol Stop: 05/07/22 22:44 Docusate Sodium (Docusate Sodium 100 Mg Cap) 200 mg PO BID EMPERATRIZ Stop: 05/12/22 20:59 Last Admin: 04/17/22 09:19 Dose: 200 mg Duloxetine HCl (Duloxetine Hcl 60 Mg Cap) 60 mg PO DAILY EMPERATRIZ Stop: 05/08/22 08:59 Last Admin: 04/17/22 09:20 Dose: 60 mg Enoxaparin Sodium (Enoxaparin Inj 40 Mg/0.4 Ml Syr) 40 mg SQ BID EMPERATRIZ Stop: 05/13/22 08:59 Last Admin: 04/17/22 08:55 Dose: 40 mg Famotidine (Famotidine 20 Mg Tab) 20 mg PO DAILY EMPERATRIZ Stop: 05/08/22 08:59 Last Admin: 04/17/22 09:21 Dose: 20 mg Ferrous Sulfate (Ferrous Sulfate 325 Mg Tab) 325 mg PO QAM EMPERATRIZ Stop: 05/08/22 08:59 Last Admin: 04/17/22 09:21 Dose: 325 mg Finasteride (Finasteride 5 Mg Tab) 5 mg PO QAM EMPERATRIZ Stop: 05/08/22 08:59 Last Admin: 04/17/22 09:21 Dose: 5 mg Fluticasone Propionate (Fluticasone Propionate Na Spr 16 Gm Btl) 2 sprays NA DAILY EMPERATRIZ Stop: 05/08/22 08:59 Last Admin: 04/17/22 09:32 Dose: 2 sprays Folic Acid (Folic Acid 1 Mg Tab) 1 mg PO QAM EMPERATRIZ Stop: 05/08/22 08:59 Last Admin: 04/17/22 09:21 Dose: 1 mg Furosemide (Furosemide 40 Mg/4 Ml Vial) 40 mg IV BIDM EMPERATRIZ Stop: 05/08/22 08:59 Last Admin: 04/17/22 10:05 Dose: 40 mg Gabapentin (Gabapentin 800 Mg Tab) 800 mg PO TID EMPERATRIZ Stop: 05/07/22 21:57 Last Admin: 04/17/22 13:13 Dose: 800 mg Glucagon (Glucagon For Inj 1 Mg Vial) 1 mg IM UD PRN; Protocol PRN Reason: Hypoglycemia Protocol Stop: 05/07/22 22:44 Glucose (Glucose 40% Gel 15 Gm Tube) 15 - 30 gm PO UD PRN; Protocol PRN Reason: Hypoglycemia Protocol Stop: 05/07/22 22:44 Glucose (Glucose 10 Tab/Tube) 4 - 8 tab PO UD PRN; Protocol PRN Reason: Hypoglycemia Protocol Stop: 05/07/22 22:44 Guaifenesin (Guaifenesin 600 Mg Tabcr) 1,200 mg PO BID EMPERATRIZ Stop: 05/07/22 21:57 Last Admin: 04/17/22 09:22 Dose: 1,200 mg Hydroxyzine HCl (Hydroxyzine Hcl 25 Mg Tab) 25 mg PO QID PRN PRN Reason: Anxiety Stop: 05/07/22 21:57 Levofloxacin/Dextrose (Levaquin/D5w) 750 mg in 150 mls @ 100 mls/hr IV Q24H EMPERATRIZ Stop: 04/21/22 11:29 Last Infusion: 04/17/22 13:07 Dose: Infused Acetaminophen (Ofirmev) 1,000 mg in 100 mls @ 400 mls/hr IV Q8H PRN PRN Reason: pain/fever Stop: 04/17/22 21:07 Last Infusion: 04/17/22 11:31 Dose: Infused Insulin Aspart (Insulin Aspart Per Unit) 0 units SC ACHS EMPERATRIZ Stop: 05/07/22 21:57 Last Admin: 04/17/22 12:52 Dose: 34 units Insulin Glargine (Lantus Per Unit Charge) 32 units SQ HS EMPERATRIZ Stop: 05/16/22 20:59 Insulin Human NPH (Insulin Human Nph) 20 units SC DAILY EMPERATRIZ Stop: 05/16/22 08:59 Last Admin: 04/17/22 08:45 Dose: 20 units Isosorbide Dinitrate (Isosorbide Dinitrate 10 Mg Tab) 30 mg PO DAILY EMPERATRIZ Stop: 05/08/22 08:59 Last Admin: 04/17/22 09:22 Dose: 30 mg Lactobacillus Acidophilus (Advanced Probiotic 1250 Mg Capsule) 1 cap PO TID EMPERATRIZ Stop: 05/07/22 21:57 Last Admin: 04/17/22 13:13 Dose: 1 cap Lorazepam (Lorazepam 0.5 Mg Tab) 0.5 mg PO Q8 PRN PRN Reason: Anxiety Stop: 05/07/22 21:57 Last Admin: 04/17/22 09:30 Dose: 0.5 mg Magnesium Oxide (Magnesium Oxide 400 Mg Tab) 400 mg PO DAILY [facility] Stop: 05/08/22 08:59 Last Admin: 04/17/22 09:23 Dose: 400 mg Melatonin (Melatonin 3 Mg Tab) 3 mg PO HS PRN PRN Reason: Sleep Stop: 05/10/22 21:44 Last Admin: 04/16/22 20:32 Dose: 3 mg Metolazone (Metolazone 2.5 Mg Tablet) 2.5 mg PO MoWeFr@0900 [facility] Stop: 05/08/22 08:59 Last Admin: 04/17/22 09:23 Dose: 2.5 mg Metoprolol Succinate (Metoprolol Succ 25mg Ext Rel Tab) 75 mg PO BID [facility] Stop: 05/07/22 21:57 Last Admin: 04/17/22 09:25 Dose: 75 mg Miscellaneous (Remove Nicoderm Patch) 1 each N/A DAILY@0859 [facility] Stop: 05/08/22 08:58 Last Admin: 04/17/22 09:42 Dose: 1 each Miscellaneous (Carbohydrates For Hypoglycemia ) 15 - 30 gm PO UD PRN PRN Reason: Hypoglycemia Treatment Stop: 05/07/22 22:44 Miscellaneous Information (Pharmacy Glycemic Mgmt Consult) 1 each N/A UD PRN PRN Reason: Consult Stop: 05/14/22 11:56 Nicotine (Nicotine 21 Mg/24 Hr Tdsy) 21 mg TD DAILY [facility] Stop: 05/07/22 21:57 Last Admin: 04/17/22 09:43 Dose: 21 mg Nitroglycerin (Nitroglycerin Sl 0.4 Mg/Tab Tab) 0.4 mg SL UD PRN PRN Reason: Chest Pain Stop: 05/07/22 21:57 Nystatin (Nystatin Powder 15gm Btl) 1 appln EXT TID PRN PRN Reason: Skin Irritation Stop: 05/07/22 21:57 Ondansetron HCl (Ondansetron 4 Mg Od Tab) 4 mg PO Q8H PRN PRN Reason: NAUSEA/VOMITING Stop: 05/07/22 22:21 Pantoprazole Sodium (Pantoprazole 40 Mg Tab) 40 mg PO DAILYBB [facility] Stop: 05/08/22 06:29 Last Admin: 04/17/22 05:33 Dose: 40 mg Polyethylene Glycol (Polyethylene (Miralax) 17 Gm Pack) 17 gm PO BID [facility] Stop: 05/12/22 20:59 Last Admin: 04/17/22 09:31 Dose: 17 gm Potassium Chloride (Potassium Chloride Crtab 20 Meq Tabcr) 20 meq PO BID [facility] Stop: 05/07/22 21:57 Last Admin: 04/17/22 09:26 Dose: 20 meq Prednisone (Prednisone 20 Mg Tab) 40 mg PO DAILY [facility] Stop: 05/14/22 11:59 Last Admin: 04/17/22 09:26 Dose: 40 mg Sennosides (Senna 8.6 Mg Tab) 8.6 mg PO BID [facility] Stop: 05/12/22 09:59 Last Admin: 04/17/22 09:27 Dose: 8.6 mg Spironolactone (Spironolactone 25 Mg Tab) 25 mg PO QAM [facility] Stop: 05/08/22 08:59 Last Admin: 04/17/22 09:29 Dose: 25 mg Tamsulosin HCl (Tamsulosin Hcl 0.4 Mg Cap) 0.8 mg PO QAM [facility] Stop: 05/08/22 08:59 Last Admin: 04/17/22 09:29 Dose: 0.8 mg Umeclidinium [place] (Umeclidinium [place] 62.5mcg/Blister 7 Puffs/Inhaler) 1 puffs INH QAM [facility]1983 Stop: 05/08/22 08:59 Last Admin: 04/17/22 09:31 Dose: 1 puffs Warfarin Sodium (Warfarin Sod 5 Mg Tab) 5 mg PO DAILY@1600 [facility] Stop: 05/16/22 15:59 Last Admin: 04/16/22 16:36 Dose: 5 mg Warfarin Sodium (Warfarin Sod 3 Mg Tab) 3 mg PO TODAY@1600 ONE Stop: 04/17/22 16:01 (1) COPD (chronic obstructive pulmonary disease) COPD type: COPD with acute exacerbation Qualified Code(s): J44.1 - Chronic obstructive pulmonary disease with (acute) exacerbation
[2022-04-17] MEDS ORDERED: WARFARIN SOD 3 MG TAB PO ONE (16:00)
[2022-04-17] MEDS: ATORVASTATIN 40 MG TAB PO SCH (20:10)
[2022-04-17] MEDS: MELATONIN 3 MG TAB PO PRN (21:36)
[2022-04-17] MEDS: LANTUS PER UNIT CHARGE SQ SCH (21:54)
[2022-04-18] MEDS ORDERED: ACETAMINOPHEN 1000 MG/100 ML IV IV PRN (02:23)
[2022-04-18] MEDS: ACETAMINOPHEN 1,000 MG/100 ML VIAL IV PRN ×3 (03:11→18:32)
[2022-04-18] MEDS: PANTOprazole 40 MG TAB PO SCH (06:33)
[2022-04-18 06:52] LABS: INR 2.2 (0.9-1.1); Prothrombin Time 22.2 Seconds (9.0-12.0)
[2022-04-18 07:03] LABS: BUN Creatinine Ratio 32.1 (10-20); Calcium 9.8 mg/dl (8.5-10.1); Creatinine Clr Calc Pharmacy 137.5 ml/min; Est GFR (African American) 87.7 ml/min; Est GFR (Non-African American) 75.7 ml/min
[2022-04-18] MEDS ORDERED: POTASSIUM CHLORIDE CRTAB 20 MEQ TABCR PO STA (07:28)
[2022-04-18] MEDS: GABAPENTIN 800 MG TAB PO SCH ×3 (08:18→19:58)
[2022-04-18] MEDS: MAGNESIUM OXIDE 400 MG TAB PO SCH (08:18)
[2022-04-18] MEDS: POLYETHYLENE (MIRALAX) 17 GM PACK PO SCH ×2 (08:18→20:00)
[2022-04-18] MEDS: FAMOTIDINE 20 MG TAB PO SCH (08:19)
[2022-04-18] MEDS: ISOSORBIDE DINITRATE 10 MG TAB PO SCH (08:19)
[2022-04-18] MEDS: SENNA 8.6 MG TAB PO SCH ×2 (08:19→20:00)
[2022-04-18] MEDS: FINASTERIDE 5 MG TAB PO SCH (08:19)
[2022-04-18] MEDS: TAMSULOSIN HCL 0.4 MG CAP PO SCH (08:19)
[2022-04-18] MEDS: FOLIC ACID 1 MG TAB PO SCH (08:19)
[2022-04-18] MEDS: predniSONE 20 MG TAB PO SCH (08:20)
[2022-04-18] MEDS: FERROUS SULFATE 325 MG TAB PO SCH (08:20)
[2022-04-18] MEDS: SPIRONOLACTONE 25 MG TAB PO SCH (08:20)
[2022-04-18] MEDS: DULoxetine HCL 60 MG CAP PO SCH (08:20)
[2022-04-18] MEDS: ADVANCED PROBIOTIC 1250 MG CAPSULE PO SCH ×3 (08:22→19:59)
[2022-04-18] MEDS: METOPROLOL SUCC 25MG EXT REL TAB PO SCH ×2 (08:22→22:04)
[2022-04-18] MEDS: guaiFENesin 600 MG TABCR PO SCH ×2 (08:23→19:58)
[2022-04-18] MEDS: ASPIRIN 81 MG ECTAB PO SCH (08:23)
[2022-04-18] MEDS: DOCUSATE SODIUM 100 MG CAP PO SCH ×2 (08:23→19:55)
[2022-04-18] MEDS: FLUTICASONE PROPIONATE NA SPR 16 GM BTL SCH (08:24)
[2022-04-18] MEDS: UMECLIDINIUM BROMIDE 62.5MCG/BLISTER 7 PUFFS/INHALER INH SCH (08:24)
[2022-04-18] MEDS: ENOXAPARIN INJ 40 MG/0.4 ML SYR SQ SCH ×2 (08:24→19:57)
[2022-04-18] MEDS: NICOTINE 21 MG/24 HR TDSY TD SCH (08:31)
[2022-04-18] MEDS: POTASSIUM CHLORIDE CRTAB 20 MEQ TABCR PO SCH ×2 (08:34→22:31)
[2022-04-18] MEDS: FUROSEMIDE 40 MG/4 ML VIAL IV SCH ×2 (08:35→16:56)
[2022-04-18] MEDS: buprenorphine HCL 8 MG SUBL SL SCH ×3 (08:42→22:01)
[2022-04-18] MEDS: INSULIN ASPART PER UNIT SC SCH ×4 (08:48→22:02)
[2022-04-18] MEDS: CYCLOBENZAPRINE HCL 10 MG TAB PO PRN ×2 (08:54→14:15)
[2022-04-18] MEDS: LORazepam 0.5 MG TAB PO PRN ×2 (08:54→22:05)
[2022-04-18] MEDS ORDERED: INSULIN HUMAN NPH SC SCH (09:00)
[2022-04-18] MEDS: levoFLOXacin/D5W 750 MG/150 ML BAG IV SCH (11:46)
[2022-04-18] MEDS ORDERED: SODIUM CHLORIDE 0.65% NA SOLN 45 ML (OCEAN) PRN (12:39)
--- NOTE | 2022-04-18 13:26 | Hospitalist Progress Note ---
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 BNP normal. - continue iv lasix 40 bid, metolazone MWF, aldactone, continue daily weight, strict I and O, daily weight. - Cr and electrolytes stable. Diuresing well. Wt 206 kg->204->204->201->198->199->199->198->196->195. Baseline wt of around 193 kg. - Negative balance about 20 L COPD with mild exacerbation- sputum clx with pseudomonas - s/p iv solumedrol with improvement and now back on prednisone started today. plan for short course of 5 days. - Sputum clx with pseudomonas pansensitive but allergic to cefepime and started on levaquin- change to po at discharge. monitor INR while on levaquin. - Continue home inhalers. He did not want nebs. History of pulmonary embolism: - Per Epic review, his coumadin dose is 2.5 mg every wednesday and 5 mg on all other day per clinical pharmacist 04/07/22 - however, his INR has been fluctuating widely- will give 7.5 mg of coumadin today and check INR In am for further dosing Benign prostatic hypertrophy with urinary retention - seen by uro and placed on fontaine 04/09 which was difficult catheterization- suspected stricture vs false passage- s/p bactrim 1 dose as per uro recommendation. UA unremarkable. - Uro recommended to continue fontaine at discharge and OP follow up. - Continue Flomax, proscar DM-2 with hyperglycemia worsened by steroids: A1c 7.4. Continue his Lantus, SSI, hold glipizide- Glycemic pharmacist managing Left ear bleeding a week ago [employer] in setting of supratherapeutic INR- coumadin on hold since, now subtherapeutic. No more bleeding. CT shows no blood but pansinusitis and mild left mastoiditis but no tenderness or clinical symptoms. S/p ear drops. Monitor. Seen by ENT- only some dried blood otherwise unremarkable and no further treatment needed Right eye blurriness- states for past week [employer] since the left ear bleed and has remained stable since ?from DM. OP ophthal shawna. Morbid obesity: BMI 61. Recommend weight loss Nocturnal hypoxia: On 4 liters at night while sleeping. continue Tobacco abuse: Nicotine patch, recommend quitting Chronic back pain: Continue home subutex, cymbalta.continue tyleno. No narcotics will be prescribed CAD- stable, no chest pain, tropx 3 neg. Continue aspirin, statin, beta nasim and nitrate. Seen by cardio. No acute cardiac symptoms Leucocytosis- recheck in am Hypokalemia- repleted, recheck in am DVT ppx- coumadin Dispo- On iv diuresis for volume optimization. Likely discharge tomorrow Admission and Anticipated Discharge Date Admission Date: April 07, 2022 Subjective Feels okay. No new issues. no fever, chills, nausea, vomiting. Physical Exam Physical Exam: General: Morbidly obese, sitting comfortably in bed, not in d istress, on room air HEENT: EOMI, TIAN, MMM Chest: Clear breath sounds bilaterally with some wheezes on deep expiration CVS: Regular rate and rhythm, normal heart sounds, no murmur Abdomen: Soft, non tender, not distended, normal bowel sounds Neuro: Awake, alert, oriented, conversing well, non focal Extremities: LE edema + Fontaine in place with johnny urine Results & Data Results & Data ([facility]) Vital Signs (Past 12 Hours) Vital Signs Temp Pulse Pulse Resp BP BP Pulse Ox 04/18/22 11:15 36.9 C 68 18 117/65 95 04/18/22 07:00 53 L 04/18/22 10:13 04/18/22 08:00 36.6 C 57 L 18 149/82 H 99 04/18/22 03:25 36.7 C 62 16 107/62 98 04/18/22 01:56 O2 Del Method O2 Flow Rate 04/18/22 11:15 Room Air 04/18/22 07:00 04/18/22 10:13 Room Air 04/18/22 08:00 Nasal Cannula 4 04/18/22 03:25 Nasal Cannula 4 04/18/22 01:56 Room Air Laboratory Results [facility] 04/18/22 05:40 Sodium 137 Potassium 3.0 L Chloride 93 L Carbon Dioxide 39 H BUN 36 H Creatinine 1.12 Glucose 144 H Calcium 9.8 Medications Administered Current Inpatient Medications Albuterol (Albut/Ipratrop 3mg/0.5mg Neb 3 Ml Vial) 3 ml INH Q6H PRN; Protocol PRN Reason: Shortness Of Breath Or Wheezing Stop: 05/07/22 21:57 Albuterol (Albuterol Hfa 8 Gm Inhaler) 2 puffs INH Q4H PRN PRN Reason: dyspnea, wheezing Stop: 05/10/22 10:51 Last Admin: 04/13/22 21:29 Dose: 2 puffs Aspirin (Aspirin 81 Mg Ectab) 81 mg PO QAM [facility] Stop: 05/08/22 08:59 Last Admin: 04/18/22 08:23 Dose: 81 mg Atorvastatin Calcium (Atorvastatin 40 Mg Tab) 80 mg PO QPM [facility] Stop: 05/07/22 21:57 Last Admin: 04/17/22 20:10 Dose: 80 mg Benzonatate (Benzonatate 100 Mg Capsule) 100 mg PO TID PRN PRN Reason: cough Stop: 05/07/22 21:57 Last Admin: 04/11/22 08:38 Dose: 100 mg Buprenorphine HCl (Buprenorphine Hcl 8 Mg Subl) 8 mg SL TID [facility] Stop: 05/07/22 21:57 Last Admin: 04/18/22 08:42 Dose: 8 mg Cyclobenzaprine HCl (Cyclobenzaprine Hcl 10 Mg Tab) 10 mg PO BID PRN PRN Reason: Muscle Spasm Stop: 05/07/22 21:57 Last Admin: 04/18/22 08:54 Dose: 10 mg Dextrose (Dextrose 50% 50 Ml Syringe) 25 - 50 ml IV UD PRN; Protocol PRN Reason: Hypoglycemia Protocol Stop: 05/07/22 22:44 Docusate Sodium (Docusate Sodium 100 Mg Cap) 200 mg PO BID [facility] Stop: 05/12/22 20:59 Last Admin: 04/18/22 08:23 Dose: 200 mg Duloxetine HCl (Duloxetine Hcl 60 Mg Cap) 60 mg PO DAILY [facility] Stop: 05/08/22 08:59 Last Admin: 04/18/22 08:20 Dose: 60 mg Enoxaparin Sodium (Enoxaparin Inj 40 Mg/0.4 Ml Syr) 40 mg SQ BID [facility] Stop: 05/13/22 08:59 Last Admin: 04/18/22 08:24 Dose: 40 mg Famotidine (Famotidine 20 Mg Tab) 20 mg PO DAILY [facility] Stop: 05/08/22 08:59 Last Admin: 04/18/22 08:19 Dose: 20 mg Ferrous Sulfate (Ferrous Sulfate 325 Mg Tab) 325 mg PO QAM [facility] Stop: 05/08/22 08:59 Last Admin: 04/18/22 08:20 Dose: 325 mg Finasteride (Finasteride 5 Mg Tab) 5 mg PO QAM [facility] Stop: 05/08/22 08:59 Last Admin: 04/18/22 08:19 Dose: 5 mg Fluticasone Propionate (Fluticasone Propionate Na Spr 16 Gm Btl) 2 sprays NA DAILY [facility] Stop: 05/08/22 08:59 Last Admin: 04/18/22 08:24 Dose: 2 sprays Folic Acid (Folic Acid 1 Mg Tab) 1 mg PO QAM [facility] Stop: 05/08/22 08:59 Last Admin: 04/18/22 08:19 Dose: 1 mg Furosemide (Furosemide 40 Mg/4 Ml Vial) 40 mg IV BIDM [facility] Stop: 05/08/22 08:59 Last Admin: 04/18/22 08:35 Dose: 40 mg Gabapentin (Gabapentin 800 Mg Tab) 800 mg PO TID [facility] Stop: 05/07/22 21:57 Last Admin: 04/18/22 08:18 Dose: 800 mg Glucagon (Glucagon For Inj 1 Mg Vial) 1 mg IM UD PRN; Protocol PRN Reason: Hypoglycemia Protocol Stop: 05/07/22 22:44 Glucose (Glucose 40% Gel 15 Gm Tube) 15 - 30 gm PO UD PRN; Protocol PRN Reason: Hypoglycemia Protocol Stop: 05/07/22 22:44 Glucose (Glucose 10 Tab/Tube) 4 - 8 tab PO UD PRN; Protocol PRN Reason: Hypoglycemia Protocol Stop: 05/07/22 22:44 Guaifenesin (Guaifenesin 600 Mg Tabcr) 1,200 mg PO BID [facility] Stop: 05/07/22 21:57 Last Admin: 04/18/22 08:23 Dose: 1,200 mg Hydroxyzine HCl (Hydroxyzine Hcl 25 Mg Tab) 25 mg PO QID PRN PRN Reason: Anxiety Stop: 05/07/22 21:57 Levofloxacin/Dextrose (Levaquin/D5w) 750 mg in 150 mls @ 100 mls/hr IV Q24H [facility] Stop: 04/21/22 11:29 Last Admin: 04/18/22 11:46 Dose: 100 mls/hr Acetaminophen (Ofirmev) 1,000 mg in 100 mls @ 400 mls/hr IV Q8H PRN PRN Reason: Pain or Fever Stop: 04/21/22 02:44 Last Infusion: 04/18/22 11:46 Dose: Infused Insulin Aspart (Insulin Aspart Per Unit) 0 units SC ACHS [facility] Stop: 05/07/22 21:57 Last Admin: 04/18/22 12:29 Dose: 34 units Insulin Glargine (Lantus Per Unit Charge) 32 units SQ HS [facility] Stop: 05/16/22 20:59 Last Admin: 04/17/22 21:54 Dose: 32 units Insulin Human NPH (Insulin Human Nph) 25 units SC DAILY [facility] Stop: 05/16/22 08:59 Last Admin: 04/18/22 08:48 Dose: 25 units Isosorbide Dinitrate (Isosorbide Dinitrate 10 Mg Tab) 30 mg PO DAILY [facility] Stop: 05/08/22 08:59 Last Admin: 04/18/22 08:19 Dose: 30 mg Lactobacillus Acidophilus (Advanced Probiotic 1250 Mg Capsule) 1 cap PO TID [facility] Stop: 05/07/22 21:57 Last Admin: 04/18/22 08:22 Dose: 1 cap Lorazepam (Lorazepam 0.5 Mg Tab) 0.5 mg PO Q8 PRN PRN Reason: Anxiety Stop: 05/07/22 21:57 Last Admin: 04/18/22 08:54 Dose: 0.5 mg Magnesium Oxide (Magnesium Oxide 400 Mg Tab) 400 mg PO DAILY [facility] Stop: 05/08/22 08:59 Last Admin: 04/18/22 08:18 Dose: 400 mg Melatonin (Melatonin 3 Mg Tab) 3 mg PO HS PRN PRN Reason: Sleep Stop: 05/10/22 21:44 Last Admin: 04/17/22 21:36 Dose: 3 mg Metolazone (Metolazone 2.5 Mg Tablet) 2.5 mg PO MoWeFr@0900 [facility] Stop: 05/08/22 08:59 Last Admin: 04/17/22 09:23 Dose: 2.5 mg Metoprolol Succinate (Metoprolol Succ 25mg Ext Rel Tab) 75 mg PO BID [facility] Stop: 05/07/22 21:57 Last Admin: 04/18/22 08:22 Dose: Not Given Miscellaneous (Remove Nicoderm Patch) 1 each N/A DAILY@0859 [facility] Stop: 05/08/22 08:58 Last Admin: 04/18/22 08:35 Dose: 1 each Miscellaneous (Carbohydrates For Hypoglycemia ) 15 - 30 gm PO UD PRN PRN Reason: Hypoglycemia Treatment Stop: 05/07/22 22:44 Miscellaneous Information (Pharmacy Glycemic Mgmt Consult) 1 each N/A UD PRN PRN Reason: Consult Stop: 05/14/22 11:56 Nicotine (Nicotine 21 Mg/24 Hr Tdsy) 21 mg TD DAILY [facility] Stop: 05/07/22 21:57 Last Admin: 04/18/22 08:31 Dose: 21 mg Nitroglycerin (Nitroglycerin Sl 0.4 Mg/Tab Tab) 0.4 mg SL UD PRN PRN Reason: Chest Pain Stop: 05/07/22 21:57 Nystatin (Nystatin Powder 15gm Btl) 1 appln EXT TID PRN PRN Reason: Skin Irritation Stop: 05/07/22 21:57 Ondansetron HCl (Ondansetron 4 Mg Od Tab) 4 mg PO Q8H PRN PRN Reason: NAUSEA/VOMITING Stop: 05/07/22 22:21 Pantoprazole Sodium ([facility] 40 Mg Tab) [facility] Stop: 05/08/22 06:29 Last Admin: 04/18/22 06:33 Dose: 40 mg Polyethylene Glycol (Polyethylene (Miralax) 17 Gm Pack) 17 gm PO BID [facility] Stop: 05/12/22 20:59 Last Admin: 04/18/22 08:18 Dose: 17 gm Potassium Chloride (Potassium Chloride Crtab 20 Meq Tabcr) 20 meq PO BID [facility] Stop: 05/07/22 21:57 Last Admin: 04/18/22 08:34 Dose: 20 meq Prednisone (Prednisone 20 Mg Tab) 40 mg PO DAILY [facility] Stop: 05/14/22 11:59 Last Admin: 04/18/22 08:20 Dose: 40 mg Sennosides (Senna 8.6 Mg Tab) 8.6 mg PO BID [facility] Stop: 05/12/22 09:59 Last Admin: 04/18/22 08:19 Dose: 8.6 mg Sodium Chloride (Sodium Chloride 0.65% Na Soln 45 Ml ([place])) 2 sprays NA QID PRN PRN Reason: dry nose Stop: 05/18/22 12:38 Spironolactone (Spironolactone 25 Mg Tab) 25 mg PO QAM [facility] Stop: 05/08/22 08:59 Last Admin: 04/18/22 08:20 Dose: 25 mg Tamsulosin HCl (Tamsulosin Hcl 0.4 Mg Cap) 0.8 mg PO QAM [facility] Stop: 05/08/22 08:59 Last Admin: 04/18/22 08:19 Dose: 0.8 mg Umeclidinium [place] (Umeclidinium [place] 62.5mcg/Blister 7 Puffs/Inhaler) 1 puffs INH QAM [facility] Stop: 05/08/22 08:59 Last Admin: 04/18/22 08:24 Dose: 1 puffs Warfarin Sodium (Warfarin Sod 7.5 Mg Tab) 7.5 mg PO DAILY@1600 [facility] Stop: 05/18/22 15:59 (1) COPD (chronic obstructive pulmonary disease) COPD type: COPD with acute exacerbation Qualified Code(s): J44.1 - Chronic obstructive pulmonary disease with (acute) exacerbation
[2022-04-18] MEDS ORDERED: WARFARIN SOD 7.5 MG TAB PO SCH (16:00)
[2022-04-18] MEDS: ATORVASTATIN 40 MG TAB PO SCH (19:55)
[2022-04-18] MEDS: LANTUS PER UNIT CHARGE SQ SCH (22:03)
[2022-04-18] MEDS: MELATONIN 3 MG TAB PO PRN (22:04)
[2022-04-18] MEDS ORDERED: CYCLOBENZAPRINE HCL 10 MG TAB PO STA (22:25)
[2022-04-19] MEDS: PANTOprazole 40 MG TAB PO SCH (05:35)
[2022-04-19 07:37] LABS: Hematocrit (blood only) 44.4 % (40.1-51.0); Hemoglobin 13.9 g/dl (14.0-18.0); Mean Corpuscular Hemoglobin 25.4 pg (25.0-34.0); Mean Corpuscular Hgb Conc 31.3 g/dL (32.0-36.0); Mean Corpuscular Volume 81.2 fL (80.0-100.0); Mean Platelet Volume 10.9 fL (9.4-12.4); Platelet Count 239 K/uL (130-400); RDW Coefficient of Variation 17.2 % (11.5-14.5); Red Blood Count 5.47 M/uL (4.63-6.08); White Blood Count 19.81 K/ul (4.8-10.8)
[2022-04-19 07:46] LABS: INR 1.7 (0.9-1.1); Prothrombin Time 17.5 Seconds (9.0-12.0)
[2022-04-19 08:03] LABS: BUN Creatinine Ratio 37.4 (10-20); Calcium 10.1 mg/dl (8.5-10.1); Creatinine Clr Calc Pharmacy 169.2 ml/min; Est GFR (African American) 112.7 ml/min; Est GFR (Non-African American) 97.2 ml/min; Magnesium 2.2 mg/dl (1.7-2.4); Potassium 3.3 mmol/L (3.5-5.1)
[2022-04-19] MEDS ORDERED: POTASSIUM CHLORIDE CRTAB 20 MEQ TABCR PO STA (08:23)
[2022-04-19] MEDS ORDERED: INSULIN HUMAN NPH SC SCH (09:00)
[2022-04-19] MEDS ORDERED: predniSONE 20 MG TAB PO SCH (09:00)
[2022-04-19] MEDS: ENOXAPARIN INJ 40 MG/0.4 ML SYR SQ SCH (09:14)
[2022-04-19] MEDS: METOPROLOL SUCC 25MG EXT REL TAB PO SCH (09:14)
[2022-04-19] MEDS: TAMSULOSIN HCL 0.4 MG CAP PO SCH (09:15)
[2022-04-19] MEDS: DULoxetine HCL 60 MG CAP PO SCH (09:15)
[2022-04-19] MEDS: ISOSORBIDE DINITRATE 10 MG TAB PO SCH (09:15)
[2022-04-19] MEDS: FERROUS SULFATE 325 MG TAB PO SCH (09:15)
[2022-04-19] MEDS: SPIRONOLACTONE 25 MG TAB PO SCH (09:16)
[2022-04-19] MEDS: MAGNESIUM OXIDE 400 MG TAB PO SCH (09:16)
[2022-04-19] MEDS: FAMOTIDINE 20 MG TAB PO SCH (09:16)
[2022-04-19] MEDS: FOLIC ACID 1 MG TAB PO SCH (09:17)
[2022-04-19] MEDS: POLYETHYLENE (MIRALAX) 17 GM PACK PO SCH (09:17)
[2022-04-19] MEDS: FINASTERIDE 5 MG TAB PO SCH (09:17)
[2022-04-19] MEDS: SENNA 8.6 MG TAB PO SCH (09:18)
[2022-04-19] MEDS: GABAPENTIN 800 MG TAB PO SCH (09:18)
[2022-04-19] MEDS: guaiFENesin 600 MG TABCR PO SCH (09:18)
[2022-04-19] MEDS: ADVANCED PROBIOTIC 1250 MG CAPSULE PO SCH (09:18)
--- NOTE | 2022-04-19 09:18 | Pharmacy Report ---
Pharmacy Glycemic Short Note 2 - Date of Service April 19, 2022 - Glycemic Short BSG Results (Last 24 hours): 04/18/22 04/18/22 04/18/22 11:39 16:56 20:33 Glucose POC Glucose 207 H 160 H 177 H 04/19/22 04/19/22 06:31 07:41 Glucose 102 H POC Glucose 124 H OUTPATIENT ANTIDIABETIC REGIMEN: * Lantus 50 units SQ qHS * Novolog SQ TID with meals * Glipizide 10mg PO BID * HbA1c: 7.4% (04/08/22) ASSESSMENT: 04/19 * Received 153 units of insulin yesterday (25 units of NPH, 32 units of Lantus, and 96 units of prandial/correctional Novolog) * Prednisone reduced to 20 mg PO daily to start today * Will give decreased NPH dose with steroids and slightly loosen carb ratio today 04/17 * BSGs yesterday were [phone] mg/dL. Patient received 217 units of insulin (80 of basal (40 each of lantus/NPH)) * Fasting today 78 mg/dL; continues with pred 40 mg. Will reduce NPH by 50% and lantus by 20% * Continue current novolog parameters 04/16 * BSGs yesterday were [phone] mg/dL. Patient received 171 units of insulin (100 units of basal with 50 units of Lantus and 50 units of NPH + 71 units of Novolog). * Fasting today is 94 mg/dL which is decreased from 140 mg/dL yesterday. Reduce both basal insulins by 20% to prevent hypoglycemia. * Tighten CR substantially due to decreased NPH. BASELINE * Mr Milner is a 51yo diabetic male admitted 04/07 with chest pain. * Over the course of admission, he has received high-dose steroids. As a result, pt has been hyperglycemic. Glycemic consult rec'd today. * Pt was switched from SoluMedrol 40mg IV q8h --> prednisone 40mg PO daily (first dose this afternoon). * Pt appears to be tolerating his diabetic diet. PLAN FOR INPATIENT GLYCEMIC CONTROL: * Hold outpatient oral diabetes medications * Basal insulin * Continue Lantus 32 units SQ HS * NPH 15 units today with reduced dose of prednisone * Bolus insulin * NovoLog per scale ACHS or Q6hrs while NPO * Goal Range: Low 110 mg/dL - High 140 mg/dL * Correction Factor: 15 mg/dL/unit * Nutritional / Prandial insulin per carb ratio of 1 unit per 3 grams CHO consumed
[2022-04-19] MEDS: ASPIRIN 81 MG ECTAB PO SCH (09:19)
[2022-04-19] MEDS: FLUTICASONE PROPIONATE NA SPR 16 GM BTL SCH (09:19)
[2022-04-19] MEDS: DOCUSATE SODIUM 100 MG CAP PO SCH (09:19)
[2022-04-19] MEDS: NICOTINE 21 MG/24 HR TDSY TD SCH (09:20)
[2022-04-19] MEDS: UMECLIDINIUM BROMIDE 62.5MCG/BLISTER 7 PUFFS/INHALER INH SCH (09:27)
[2022-04-19] MEDS: POTASSIUM CHLORIDE CRTAB 20 MEQ TABCR PO SCH (09:32)
[2022-04-19] MEDS: FUROSEMIDE 40 MG/4 ML VIAL IV SCH (09:33)
[2022-04-19] MEDS: LORazepam 0.5 MG TAB PO PRN (09:33)
[2022-04-19] MEDS: CYCLOBENZAPRINE HCL 10 MG TAB PO PRN (09:33)
[2022-04-19] MEDS: buprenorphine HCL 8 MG SUBL SL SCH (09:33)
[2022-04-19] MEDS: ACETAMINOPHEN 1,000 MG/100 ML VIAL IV PRN (09:38)
[2022-04-19] MEDS: INSULIN ASPART PER UNIT SC SCH (09:48)
[2022-04-19] MEDS: levoFLOXacin/D5W 750 MG/150 ML BAG IV SCH (10:22)
--- NOTE | 2022-04-19 11:35 | Discharge Summary ---
Date of Service April 19, 2022 Admission HPI Per Admitting Provider This is a 51-year-old male with a past medical history significant for diabetes type 2; hypertension; history of PE, on Coumadin; diastolic CHF; chronic back pain; chronic pain , history of COPD, history of urinary retention, currently Fontaine catheter is taken out; history of depression; history of anxiety; history of subdural hematoma; history of ST elevated CO and multiple recurrent hospitalizations for similar problems. Again, comes because of his feeling of chest pains, headaches. He says he gained about 20 pounds in this month and in last week gained about 10 pounds. He says he is compliant with taking his medications, compliant with not using salt. Because of his ongoing symptoms, he came to the ER. He says he was also in the ER recently for complaining of bleeding from his left ear. Denies using any Q-tips or any foreign body in his ear. He was given eardrops. The patient says he still has some bleeding in the left ear. He also is saying his right eye is blurred since bleeding of left ear last . Ambulates with a cane, but not ambulating much, just goes to the bathroom and comes back. Still smoking one pack of cigarettes daily. No runny nose, no sore throat. Has some cough. Appetite is okay. Has shortness of breath on exertion. No nausea, no abdominal pain. Somewhat constipated. He says since his catheter was taken out, he is still having trouble peeing and he wants to see urology. Currently resting comfortably. Uses oxygen 4 liters while sleeping. Hemodynamically stable. Admission Exam Per Admitting Provider GENERAL: The patient is morbidly obese, not in acute distress. VITAL SIGNS: Temperature 36.8, pulse 70, respiratory rate 20, blood pressure 126/69, oxygen 99% on 4 liters. HEENT: Pupils equal, round and reactive to light. Oral mucosa dry. Left ear, some blood seen outside the eardrum. NECK: No JVD, no neck masses. CARDIOVASCULAR: S1 and S2 heard, regular rate and rhythm. No murmur, no gallop. RESPIRATORY SYSTEM: Normal AP diameter. No accessory muscle use. No wheezing. No crackles. ABDOMEN: Soft, bowel sounds present, nontender, no distention. CENTRAL NERVOUS SYSTEM: Cranial nerves II through XII grossly intact, nonfocal. EXTREMITIES: Bilateral gross lower extremity edema present with chronic skin changes seen. Principal Diagnosis Acute on chronic diastolic CHF, COPD exacerbation, acute urinary retention, subtherapeutic INR on usp coumadin for h/o DVT/PE Discharge Exam General: Morbidly obese, sitting comfortably in bed, not in distress, on room air HEENT: EOMI, TIAN, MMM Chest: Clear breath sounds bilaterally with minimal wheezes on deep expiration CVS: Regular rate and rhythm, normal heart sounds, no murmur Abdomen: Soft, non tender, not distended, normal bowel sounds Neuro: Awake, alert, oriented, conversing well, non focal Extremities: LE edema + but improved Fontaine in place with johnny urine Discharge Data Allergies Allergy/AdvReac Type Severity Reaction Status Date / Time cefepime Allergy Intermediate rash Verified 04/07/22 20:13 daptomycin Allergy Intermediate rash Verified 04/07/22 20:13 fentanyl Allergy Intermediate RASH/HIVES/SKIN Verified 04/07/22 20:13 REDNESS naloxone AdvReac Severe extremely Verified 04/07/22 20:13 sick acetaminophen [From Tylenol] AdvReac Intermediate IRRITATES Verified 04/07/22 20 :13 & UPSET STOMACH ibuprofen AdvReac Intermediate Nausea Verified 04/07/22 20:13 valproic acid AdvReac Intermediate PANCREATITS Verified 04/07/22 20:13 Consultations 04/07/22 19:40 ED Decision to Admit Stat 04/08/22 08:00 Consult Cardiology Routine Consult Ophthalmology Routine Consult Otolaryngology (Head and Neck) Routine 04/09/22 07:24 Consult Urology Routine Ordered Studies 04/07/22 20:47 CT head/brain wo con Urgent Laboratory Results WBC 19.81 K/ul (4.8-10.8) H 04/19/22 06:31 RBC 5.47 M/uL (4.63-6.08) 04/19/22 06:31 Hgb 13.9 g/dl (14.0-18.0) L 04/19/22 06:31 Hct 44.4 % (40.1-51.0) 04/19/22 06:31 MCV 81.2 fL (80.0-100.0) 04/19/22 06:31 MCH 25.4 pg (25.0-34.0) 04/19/22 06:31 MCHC 31.3 g/dL (32.0-36.0) L 04/19/22 06:31 RDW Std Deviation 50.0 fL (36.4-46.3) H 04/19/22 06:31 RDW Coeff of Megan 17.2 % (11.5-14.5) H 04/19/22 06:31 Plt Count 239 K/uL (130-400) 04/19/22 06:31 MPV 10.9 fL (9.4-12.4) 04/19/22 06:31 Immature Gran % (Auto) 1.3 % 04/16/22 05:27 Neut % (Auto) 59.6 % 04/16/22 05:27 Lymph % (Auto) 30.7 % 04/16/22 05:27 Irwin % (Auto) 7.5 % 04/16/22 05:27 Eos % (Auto) 0.4 % 04/16/22 05:27 Baso % (Auto) 0.5 % 04/16/22 05:27 Neut # (Auto) 11.66 K/uL (1.4-6.5) H 04/16/22 05:27 Lymph # (Auto) 6.00 K/uL (1.2-3.4) H 04/16/22 05:27 Irwin # (Auto) 1.46 K/uL (0.24-0.82) H 04/16/22 05:27 Eos # (Auto) 0.08 K/uL (0-0.50) 04/16/22 05:27 Baso # (Auto) 0.09 K/uL (0-0.2) 04/16/22 05:27 Immature Gran # (Auto) 0.26 K/uL (0.00-0.02) H 04/16/22 05:27 Blood Smear Review 04/16/22 05:27 Microcytosis Present 04/16/22 05:27 PT 17.5 Seconds (9.0-12.0) H 04/19/22 06:31 INR 1.7 (0.9-1.1) H 04/19/22 06:31 Sodium 140 mmol/L (136-145) 04/19/22 06:31 Potassium 3.3 mmol/L (3.5-5.1) L 04/19/22 06:31 Chloride 95 mmol/L (98-107) L 04/19/22 06:31 Carbon Dioxide 40 mmol/L (21-32) H 04/19/22 06:31 Anion Gap 5 (3-11) 04/19/22 06:31 BUN 34 mg/dl (6-23) H 04/19/22 06:31 Creatinine 0.91 mg/dl (0.6-1.4) 04/19/22 06:31 Est Cr Clr Drug Dosing 169.2 ml/min 04/19/22 06:31 Est GFR ( Amer) 112.7 ml/min 04/19/22 06:31 Est GFR (Non-Af Amer) 97.2 ml/min 04/19/22 06:31 BUN/Creatinine Ratio 37.4 (10-20) H 04/19/22 06:31 Glucose 102 mg/dl (70-99(Fasting)) H 04/19/22 06:31 POC Glucose 124 mg/dl (70-99) H 04/19/22 07:41 Estimat Average Glucose 166 mg/dl 04/08/22 05:24 Hemoglobin A1c 7.4 % (4.5-5.6) H 04/08/22 05:24 Calcium 10.1 mg/dl (8.5-10.1) 04/19/22 06:31 Magnesium 2.2 mg/dl (1.7-2.4) 04/19/22 06:31 Total Bilirubin 0.7 mg/dl (0.2-1.0) 04/07/22 17:30 Direct Bilirubin 0.1 mg/dl (0-0.2) 04/07/22 17:30 AST 10 U/L (13-39) L 04/07/22 17:30 ALT 9 U/L (7-52) 04/07/22 17:30 Alkaline Phosphatase 120 U/L (34-104) H 04/07/22 17:30 Ammonia 16.0 umol/L (18-72) L 04/07/22 17:50 Troponin I High Sens 3.4 pg/ml (0-20) 04/08/22 10:48 B-Natriuretic Peptide 75 pg/ml (0-100) 04/07/22 17:30 Total Protein 6.7 gm/dl (6.0-8.3) 04/07/22 17:30 Albumin 3.5 gm/dl (3.4-5.0) 04/07/22 17:30 Procalcitonin < 0.05 ng/ml (0-0.5) 04/09/22 06:28 Urine Color Yellow 04/09/22 14:08 Urine Appearance Clear (Clear) 04/09/22 14:08 Urine pH 7.5 (4.5-7.5) 04/09/22 14:08 Ur Specific Dunellen 1.005 (1.000-1.030) 04/09/22 14:08 Urine Protein Negative (Negative) 04/09/22 14:08 Urine Glucose (UA) Negative (Negative) 04/09/22 14:08 Urine Ketones Negative (Negative) 04/09/22 14:08 Urine Blood 2+ (Negative) H 04/09/22 14:08 Urine Nitrite Negative (Negative) 04/09/22 14:08 Urine Bilirubin Negative (Negative) 04/09/22 14:08 Urine Urobilinogen Negative (Negative) 04/09/22 14:08 Ur Leukocyte Esterase Negative (Negative) 04/09/22 14:08 Urine WBC (Auto) 0 /hpf (0-5) 04/09/22 14:08 Urine RBC (Auto) 10-30 /hpf (0-4) H 04/09/22 14:08 U Hyaline Cast (Auto) 0 /lpf (0-5) 04/09/22 14:08 U Epithel Cells (Auto) 0-5 /lpf (0-5) 04/09/22 14:08 Urine Bacteria (Auto) Negative (Negative) 04/09/22 14:08 SARS-CoV-2, RNA, NAAT NEGATIVE (NEGATIVE) 04/07/22 16:[address] 04/07/22 20:47 CT head/brain wo con CLINICAL HISTORY: bleeding from the left ear. on coumadin COMPARISON STUDY: 11/26/2021 CT DOSE: 687.98 mGy.cm TECHNIQUE: Standard CT of the Brain was performed without IV contrast. A dose lowering technique was utilized adhering to the principles of ALARA. FINDINGS: Extraaxial space: There is no evidence for subdural hematoma. There are no extra-axial fluid collections. Ventricles and cisterns: The ventricles are normal in size and configuration. There is no evidence for midline shift or mass effect. Parenchyma: There is no subarachnoid or intraparenchymal hemorrhage. There is no evidence for an acute infarct or cerebral edema. There is homogeneous attenuation of the brain parenchyma. There are no gross mass lesions. Osseous structures: There is no evidence for an acute fracture. There is prominent mucosal thickening present involving the frontal sinuses bilaterally, right greater than left, the ethmoid sinuses bilaterally, right greater than left, the maxillary antra bilaterally, right greater than left and the right sphenoid sinus. No fluid is seen in the external auditory canals. There is mild mucosal thickening of the mastoid air cells on the left when compared to the right. Soft tissues: There is no evidence for focal soft tissue swelling. IMPRESSION: 1. No acute intracerebral pathology. 2. Pansinusitis. 3. Mild left mastoiditis. 4. No fluid within the external auditory canals bilaterally. ACT 112: Negative or not required by law. Electronically signed by: Sandip Chawla M.D. 04/08/2022 7:44 AM Chest X-Ray 04/15/22 15:16 XR chest 1V portable HISTORY: 51 years-old Male r/o pneumonia acute shortness of breath COMPARISON: 04/07/2022 TECHNIQUE: AP view of the chest FINDINGS: Cardiac silhouette is enlarged. Pulmonary vascular congestion redemonstrated. No pneumothorax. Probable trace pleural effusions with mild bibasilar opacities. Chronic left clavicular fracture deformity. Degenerative changes of the shoulders and spine. IMPRESSION: 1. Cardiomegaly with pulmonary vascular congestion. 2. Probable trace pleural effusions. ACT 112: Negative or not required by law. The above report was generated using voice recognition software. It may contain grammatical, syntax or spelling errors. Electronically signed by: Shelton Apodaca M.D. 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 He was treated for following conditions. Acute on chronic diastolic congestive heart failure- due to dietary indiscretion and possible medication non compliance. BNP normal. - Diuresed well with iv lasix 40 bid, metolazone MWF, aldactone. Weight steadily trending down now closer to baseline weight. Labs stable. - Wt 206 kg->204->204->201->198->199->199->198->196->195->195 kg. Baseline wt of around 193 kg. - Continue OP dose of lasix, metolazone and aldactone with potassium supplementation. Follow up with PCP and cardiology COPD with mild exacerbation- sputum clx with pseudomonas - s/p iv solumedrol with improvement and now on prednisone taper- 20 mg for 2 more days followed by 10 mg for 3 days and then stop - S/p iv levaquin->Being discharged on levaquin for 1 more day to complete 7 day antibiotic course/ - Continue home inhalers. History of pulmonary embolism: - Per Epic review, his coumadin dose is 2.5 mg every wednesday and 5 mg on all other day per clinical pharmacist 04/07/22 - however, his INR has been fluctuating widely and requiring higher dose of coumadin here to maintain INR at goal- discussed with pharmacist who recommended close follow up with his coumadin clinic - Recommended 10 mg of coumadin today, check INR tomorrow for further dosing tomorrow- follow up with MTM for closer monitoring until stable dose figured out (goal INR 2-3) Benign prostatic hypertrophy with urinary retention - seen by uro and placed on fontaine 04/09 which was difficult catheterization- suspected stricture vs false passage- s/p bactrim 1 dose as per uro recommendation. UA unremarkable. - Uro recommended to continue fontaine at discharge and OP follow up. - Continue Flomax, proscar DM-2 with hyperglycemia worsened by steroids: A1c 7.4. Continue lantus, glipizide at discharge Left ear bleeding a week ago [employer] in setting of supratherapeutic INR- since resolved with no recurrence. No more bleeding. CT shows no blood but pansinusitis and mild left mastoiditis but no tenderness or clinical symptoms. S/p ear drops. Seen by ENT- only some dried blood otherwise unremarkable and no further treatment needed Right eye blurriness- states for past week [employer] since the left ear bleed and has remained stable since ?from DM. OP ophthal evaluation recommended Morbid obesity: BMI 61. Recommend weight loss Nocturnal hypoxia: On 4 liters at night while sleeping. continue Tobacco abuse: Nicotine patch, recommend quitting Chronic back pain: Continue home subutex, cymbalta.continue tyleno. No narcotics was prescribed CAD- stable, no chest pain, tropx 3 neg. Continue aspirin, statin, beta nasim and nitrate. Seen by cardio. No acute cardiac symptoms Leucocytosis- stable, possibly from steroids. Recommend repeat CBC in a week after completion of steroids to ensure resolution. Hypokalemia- repleted. on regular supplementation. Patient is comfortable and stable for discharge home. He was seen by PT and cleared for discharge home. He has been ambulating as tolerated. He states he will arrange a ride himself. Recommended close OP follow up with his providers. Total Time Total Time Spent Total Time Spent (In Minutes): 50 Discharge Plan Discharge Items Patient Disposition: Home - Self-Care Reason For Visit: chest pain Discharge Diagnosis: Acute on chronic diastolic CHF, COPD exacerbation, acute urinary retention, subtherapeutic INR on usp coumadin for h/o DVT/PE Activity: Resume your previous activity Non-emergency contact: Primary Care Provider Call non-emergency contact if: you have any medication questions, your symptoms worsen, your pain is not controlled and you have a fever Follow-up/Referrals: Roberto Askew MD [Primary Care Provider] - Diet: Carb Consistent or DM2 and Low Sodium (2gm) Fluids: 1500ml (6 cups) Addtl Attending Provider Instructions: Continue levaquin for 1 more day to complete the antibiotic course Continue prednisone 20 mg for 2 more days, 10 mg for 3 more days and then stop Take coumadin 10 mg tonight, follow up with the coumadin clinic tomorrow for INR check for further dosing tomorrow. You will need very closer monitoring with INR for the next week until they find a stable dosing for you that will keep your INR at the goal of 2-3 Your WBC is high likely from the steroid and infection. Recommend repeat CBC in a week to ensure they are improving and follow up with family doctor. Continue your lasix and metolazone. Check your weight daily and call your family doctor for instructions when the swelling and weight starts trending up as me ntioned below. Follow up with urology for further catheter management Follow up with eye doctors and ENT doctors for your vision and ear issues Addtl Hand Upper And Bottom Lacer Provider Instructions: Call 911 and go to the Emergency Room if: * You have tightness or pain in your chest that does not go away with rest or Nitroglycerin * You are very short of breath even with rest Call your doctor if any of the following symptoms or problems start or get worse: * Shortness of breath or difficulty breathing * Wake up at night short of breath * Chest pain * Cough * Swelling of your hands, fee, or legs * More fatigued or tired with your normal activity * Palpitations - sudden fast heart beats WEIGHT * Weigh yourself every morning after using the bathroom. * Use the same scale. * Wear the same amount of clothing. * Write your weight down on your chart. * Call your doctor if you gain more than 2-3 pounds in 1-2 days. MEDICATIONS * Use this discharge instruction sheet for instructions. * Take your medications at the time your doctor ordered. * Do not skip a dose of your medicines. * If you miss a dose of medicine, take as soon as possible, but DO NOT DOUBLE A DOSE. * Read your medicine information when you get home. * Know all of the side effects of your medicine. * Call your doctor's office if you have any side effects. * Be sure all of your doctors know what medicine and herbs you take (including cold, flu, and herbal medicine). * Pain Medicine: If you do not get relief from your pain, please call your doctor for help. Take the following with you to your follow-up doctor appointments: * Weight Chart * Medication List * List of questions Do not drink excessive alcohol, beer or wine. Pending Studies at Discharge: No Stand-Alone Forms: [employer], Smoking Cessation Medications and DC Order Prescriptions: New prednisone 10 mg tablet 10 mg PO UD Qty: 7 0RF Rx Instructions: take 20 mg daily for 2 days, then 10 mg daily for 3 days and then stop levofloxacin 750 mg tablet 750 mg PO DAILY 1 Days Qty: 1 0RF Continued tamsulosin [Flomax] 0.4 mg capsule 0.8 mg PO QAM Qty: 180 3RF polyethylene glycol 3350 [Miralax] 17 gram powder in packet 17 g PO QAM nitroglycerin [Nitrostat] 0.4 mg tablet, sublingual 0.4 mg Sublingual DIRECTED PRN (Reason: CHEST PAIN) Rx Instructions: PLACE ONE TABLET UNDER THE TONGUE EVERY 5 MINUTES FOR UP TO 3 DOSES OVER 15 MINUTES IF NEEDED FOR CHEST PAIN nystatin 100,000 unit/gram Powder 1 applic TOPICAL TID PRN (Reason: Skin Irritation) Rx Instructions: APPLY DIRECTED TO ABDOMINAL FOLDS cyclobenzaprine 10 mg Tablet 10 mg PO BID PRN (Reason: Muscle Spasm) ipratropium-albuterol 0.5 mg-3 mg(2.5 mg base)/3 mL Solution For Nebulization 3 ml INHALATION Q6H PRN (Reason: Shortness Of Breath Or Wheezing) docusate sodium 100 mg Capsule 100 mg PO BID duloxetine 60 mg capsule,delayed release(DR/EC) 60 mg PO DAILY famotidine 20 mg tablet 20 mg PO DAILY fluticasone propionate 50 mcg/actuation spray,suspension 2 spray Intranasal DAILY aspirin [Ecotrin Low Strength] 81 mg tablet,delayed release (DR/EC) 81 mg PO QAM Spiriva with HandiHaler 18 mcg capsule, w/inhalation device 1 puff inhalation QAM finasteride 5 mg tablet 5 mg PO QAM metoprolol succinate 50 mg Tablet Extended Release 24 Hr 75 mg PO BID spironolactone 25 mg Tablet 25 mg PO QAM atorvastatin 80 mg tablet 80 mg PO QPM Rx Instructions: TAKE THIS MEDICATION EVERY AFTERNOON sennosides [senna] 8.6 mg Tablet 8.6 mg PO DAILY PRN (Reason: Constipation) folic acid 1 mg Tablet 1 mg PO QAM furosemide [Lasix] 40 mg tablet 40 mg PO BID lorazepam 0.5 mg tablet 0.5 mg PO Q8 PRN (Reason: Anxiety) potassium chloride 20 mEq Tablet Extended Release 20 meq PO BID albuterol sulfate 90 mcg/actuation Hfa Aerosol Inhaler 2 puff INHALATION Q4 PRN (Reason: Dyspnea) omeprazole 20 mg Capsule,Delayed Release(Dr/Ec) 20 mg PO DAILYBB gabapentin 800 mg tablet 800 mg PO TID buprenorphine HCl 8 mg tablet, sublingual 8 mg SUBLINGUAL TID Rx Instructions: Per Dr 1st glipizide 10 mg tablet 10 mg PO BID insulin glargine [Lantus Solostar U-100 Insulin] 100 unit/mL (3 mL) Insulin Pen 50 unit SC HS 30 Days Qty: 15 3RF urea [Ureacin-20] 20 % Cream 1 applic TOPICAL BID magnesium oxide 400 mg (241.3 mg magnesium) tablet 400 mg PO DAILY ferrous sulfate 325 mg (65 mg iron) Tablet 325 mg PO QAM Rx Instructions: Take with breakfast hydroxyzine HCl 25 mg Tablet 25 mg PO QID PRN (Reason: Anxiety) insulin aspart U-100 [Novolog Flexpen U-100 Insulin] 100 unit/mL (3 mL) Insulin Pen 1 unit SUBCUT TIDM Rx Instructions: inject 1 unit uner the skin three times a day with meals. units as per sliding scale as instructed by provider to cover for steroid coverage when warranted ondansetron HCl 4 mg Tablet 4 mg PO Q8H PRN (Reason: NAUSEA/VOMITING) benzonatate 100 mg Capsule 100 mg PO TID PRN (Reason: cough) Qty: 10 0RF metolazone 2.5 mg tablet 2.5 mg PO UD Qty: 12 1RF Rx Instructions: take 1 tab 3x a week (mon/wed/fri) warfarin 5 mg tablet 2.5 - 5 mg PO DIRECTED Qty: 0 0RF Rx Instructions: as directed by anti-coagulation clinic ciprofloxacin HCl 0.3 % drops 5 drp OPL .DAILY FOR 7 DAYS Rx Instructions: Put in left ear, not eye, filled 04/01/22 Mucinex Tabs 2 tabs PO BID Lactinex 1 million cell tablet,chewable 1 tab PO TID Qty: 30 0RF isosorbide dinitrate 30 mg tablet 30 mg PO DAILY Discharge Orders: Discharge Order (Routine); Ordered 04/19/22 Ordered By: Billy Mills Admission Data Admit Date/Time: 04/07/22 20:43 Attending Provider: Billy Mills Admit Provider: Everardo Ibarra Primary Care Provider: Roberto Askew Other Providers: Everardo Ibarra ; Yvon Del Valle ; Dick Cardoza ; Miguel Angel Lee ; Jacob Penn ; Manuel English ; Owen Saavedra ; Berna Richardson ; Josefina Chavez ; Rocío Ngo ; Popeye Fall ; Desiree Prajapati ; Mackenzie Pino ; Ector Silva ; Owen Fierro ; Nikolai Liang ; Billy Mills. Other Interventions: Discharge Summary Assessment (RN) Last Done: 04/19/22 10:50
[2022-04-19] MEDS ORDERED: WARFARIN SOD 10 MG TAB PO SCH (16:00)
== END 2022-04-19 12:15 | disposition home or self-care (01) | DRG 291 ==
LOC: ED 16:20 → SUATTDRO 20:43 → 2S 20:43 → 2N 04-08 12:38
DX: R79.1 Abnormal coagulation profile; I50.33 Acute on chronic diastolic (congestive) heart failure; Z86.718 Personal history of other venous thrombosis and embolism; R33.9 Retention of urine, unspecified; I11.0 Hypertensive heart disease with heart failure; F11.20 Opioid dependence, uncomplicated; Z79.82 Long term (current) use of aspirin; E87.6 Hypokalemia; E11.9 Type 2 diabetes mellitus without complications; J96.12 Chronic respiratory failure with hypercapnia; J44.1 Chronic obstructive pulmonary disease with (acute) exacerbation; N40.0 Benign prostatic hyperplasia without lower urinary tract symptoms; K59.00 Constipation, unspecified; Z68.44 Body mass index [BMI] 60.0-69.9, adult; H53.8 Other visual disturbances; Z79.01 Long term (current) use of anticoagulants; Z86.711 Personal history of pulmonary embolism; Z79.84 Long term (current) use of oral hypoglycemic drugs; E66.2 Morbid (severe) obesity with alveolar hypoventilation; H92.22 Otorrhagia, left ear; I50.810 Right heart failure, unspecified; F17.210 Nicotine dependence, cigarettes, uncomplicated; Z88.8 Allergy status to other drugs, medicaments and biological substances; Z88.6 Allergy status to analgesic agent

== ENCOUNTER 2022-05-21 20:42 | Inpatient (IN) ==
[2022-05-21] MEDS ORDERED: ALBUT/IPRATROP 3MG/0.5MG NEB 3 ML VIAL NEB STA (21:45)
[2022-05-21] MEDS ORDERED: NICOTINE 21 MG/24 HR TDSY TD STA (21:45)
[2022-05-21 22:54] LABS: Basophils % (auto) 0.7 %; Eosinophils # (auto) 0.51 K/uL (0-0.50); Eosinophils % (auto) 3.5 %; Hemoglobin 12.2 g/dl (14.0-18.0); Immature Granulocytes # (auto) 0.06 K/uL (0.00-0.02); Immature Granulocytes % (auto) 0.4 %; Lymphocytes # (auto) 3.23 K/uL (1.2-3.4); Lymphocytes % (auto) 22.4 %; Mean Corpuscular Hemoglobin 26.3 pg (25.0-34.0); Mean Corpuscular Hgb Conc 32.1 g/dL (32.0-36.0); Mean Corpuscular Volume 81.9 fL (80.0-100.0); Monocytes # (auto) 1.25 K/uL (0.24-0.82); Monocytes % (auto) 8.7 %; Neutrophils # (auto) 9.24 K/uL (1.4-6.5); Neutrophils % (auto) 64.3 %; Platelet Count 253 K/uL (130-400); RDW Coefficient of Variation 20.3 % (11.5-14.5); Red Blood Count 4.64 M/uL (4.63-6.08); White Blood Count 14.39 K/ul (4.8-10.8)
[2022-05-21 23:09] LABS: Anisocytosis Present
[2022-05-21 23:23] LABS: Troponin I High Sensitivity 4.7 pg/ml (0-20)
[2022-05-21 23:24] LABS: Alanine Aminotransferase 9 U/L (7-52); Albumin Globulin Ratio 1.2 (0.9-2); Albumin Level 3.4 gm/dl (3.4-5.0); Alkaline Phosphatase 90 U/L (34-104); Anion Gap 6 (3-11); Aspartate Aminotransferase 13 U/L (13-39); BUN Creatinine Ratio 15.2 (10-20); Bilirubin,Total 0.8 mg/dl (0.2-1.0); Blood Urea Nitrogen 14 mg/dl (6-23); Calcium 9.6 mg/dl (8.5-10.1); Carbon Dioxide 25 mmol/L (21-32); Chloride 104 mmol/L (98-107); Est GFR (African American) 111.2 ml/min; Globulin 2.9 gm/dl (2.5-4.0); Glucose 170 mg/dl (70-99(Fasting)); Lipase 16 U/L (11-82); Potassium 4.6 mmol/L (3.5-5.1); Sodium 135 mmol/L (136-145); Total Protein 6.3 gm/dl (6.0-8.3)
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
[2022-05-22] MEDS ORDERED: ALBUT/IPRATROP 3MG/0.5MG NEB 3 ML VIAL NEB STA (00:57)
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
[2022-05-22] MEDS: ALBUT/IPRATROP 3MG/0.5MG NEB 3 ML VIAL NEB SCH ×4 (02:00→19:27)
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
[2022-05-22] MEDS: ACETAMINOPHEN 1000 MG/100 ML IV IV PRN ×3 (03:53→22:12)
[2022-05-22 05:14] LABS: Alanine Aminotransferase 9 U/L (7-52); Albumin Globulin Ratio 1.2 (0.9-2); Albumin Level 3.4 gm/dl (3.4-5.0); Alkaline Phosphatase 89 U/L (34-104); Anion Gap 4 (3-11); Aspartate Aminotransferase 14 U/L (13-39); BUN Creatinine Ratio 15.6 (10-20); Bilirubin,Total 0.9 mg/dl (0.2-1.0); Blood Urea Nitrogen 14 mg/dl (6-23); Calcium 9.5 mg/dl (8.5-10.1); Carbon Dioxide 28 mmol/L (21-32); Chloride 105 mmol/L (98-107); Est GFR (African American) 114.2 ml/min; Est GFR (Non-African American) 98.5 ml/min; Globulin 2.8 gm/dl (2.5-4.0); Glucose 172 mg/dl (70-99(Fasting)); Potassium 4.7 mmol/L (3.5-5.1); Sodium 137 mmol/L (136-145); Total Protein 6.2 gm/dl (6.0-8.3)
[2022-05-22 05:41] LABS: Appearance Urine Cloudy (Clear); Bacteria Urine Automated Negative (Negative); Bilirubin Urine Negative (Negative); Blood Urine 1+ (Negative); Color Urine Yellow; Epithelial Cell Urine Auto >30 /lpf (0-5); Glucose Urine UA Negative (Negative); Ketones Urine Negative (Negative); Leukocyte Esterase Urine 2+ (Negative); Nitrite Urine Negative (Negative); Protein Urine Negative (Negative); Specific Gravity Urine 1.022 (1.000-1.030); Urobilinogen Urine Negative (Negative)
[2022-05-22 07:29] LABS: Basophils # (auto) 0.07 K/uL (0-0.2); Basophils % (auto) 0.6 %; Eosinophils # (auto) 0.49 K/uL (0-0.50); Eosinophils % (auto) 4.2 %; Hemoglobin 11.7 g/dl (14.0-18.0); Immature Granulocytes # (auto) 0.05 K/uL (0.00-0.02); Immature Granulocytes % (auto) 0.4 %; Lymphocytes % (auto) 26.6 %; Mean Corpuscular Hemoglobin 26.1 pg (25.0-34.0); Mean Corpuscular Hgb Conc 31.6 g/dL (32.0-36.0); Mean Corpuscular Volume 82.6 fL (80.0-100.0); Mean Platelet Volume 10.2 fL (9.4-12.4); Monocytes # (auto) 1.23 K/uL (0.24-0.82); Monocytes % (auto) 10.6 %; Neutrophils % (auto) 57.6 %; Platelet Count 213 K/uL (130-400); RDW Coefficient of Variation 20.3 % (11.5-14.5); RDW Standard Deviation 59.7 fL (36.4-46.3); Red Blood Count 4.48 M/uL (4.63-6.08); White Blood Count 11.64 K/ul (4.8-10.8)
[2022-05-22 07:57] LABS: Anisocytosis Present; Polychromasia 1+
[2022-05-22] MEDS: TAMSULOSIN HCL 0.4 MG CAP PO SCH (08:17)
[2022-05-22] MEDS: SPIRONOLACTONE 25 MG TAB PO SCH (08:17)
[2022-05-22] MEDS: FOLIC ACID 1 MG TAB PO SCH (08:18)
[2022-05-22] MEDS: SENNA 8.6 MG TAB PO SCH (08:18)
[2022-05-22] MEDS: GABAPENTIN 800 MG TAB PO SCH ×3 (08:18→22:22)
[2022-05-22] MEDS: FERROUS SULFATE 325 MG TAB PO SCH (08:18)
[2022-05-22] MEDS: DULoxetine HCL 60 MG CAP PO SCH (08:19)
[2022-05-22] MEDS: ATORVASTATIN 40 MG TAB PO SCH (08:19)
[2022-05-22] MEDS: DOCUSATE SODIUM 100 MG CAP PO SCH ×2 (08:19→22:44)
[2022-05-22] MEDS: FAMOTIDINE 40 MG TABLET PO SCH (08:19)
[2022-05-22] MEDS: FINASTERIDE 5 MG TAB PO SCH (08:19)
[2022-05-22] MEDS: ASPIRIN 81 MG ECTAB PO SCH (08:20)
[2022-05-22] MEDS: cefTRIAXone SODIUM 2,000 MG in DEXTROSE 5% 50 ML IV SCH (08:21)
[2022-05-22] MEDS: UMECLIDINIUM BROMIDE 62.5MCG/BLISTER 7 PUFFS/INHALER INH SCH (08:23)
[2022-05-22] MEDS: FLUTICASONE/VILANTEROL 200/25MCG 14 PUFFS/INHALER INH SCH (08:24)
--- NOTE | 2022-05-22 08:58 | XRay Report ---
XR chest 1V portable CLINICAL HISTORY: Atypical chest pain. Shortness of breath. COMPARISON STUDY: Chest radiograph April 15, 2022. FINDINGS: There is no pneumothorax. There are small bilateral pleural effusions. Cardiomegaly is unch anged. Pulmonary vascular congestion is similar to prior exam. There is possible left basilar opacity . IMPRESSION: 1. Cardiomegaly. Pulmonary vascular congestion, similar to prior exam. 2. Small bilateral pleural effusions. 3. Possible left basilar opacity. This is likely artifactual however consolidation could appear simil ar. ACT 112: Negative or not required by law. Electronically signed by: Evelio Corbin M.D. 05/22/2022 8:57 AM
[2022-05-22] MEDS ORDERED: FUROSEMIDE 80 MG TAB PO SCH (09:00)
[2022-05-22] MEDS ORDERED: GLUCOSE 10 TAB/TUBE PO PRN (09:24)
[2022-05-22] MEDS ORDERED: CARBOHYDRATES FOR HYPOGLYCEMIA PO PRN (09:24)
[2022-05-22] MEDS ORDERED: DEXTROSE 50% 50 ML SYRINGE IV PRN (09:24)
[2022-05-22] MEDS ORDERED: GLUCAGON FOR INJ 1 MG VIAL SQ PRN (09:24)
[2022-05-22] MEDS ORDERED: GLUCOSE 40% GEL 15 GM TUBE PO PRN (09:24)
[2022-05-22] MEDS ORDERED: LANTUS PER UNIT CHARGE SQ SCH (09:30)
[2022-05-22] MEDS: LANTUS PER UNIT CHARGE SQ SCH ×2 (11:06→22:08)
[2022-05-22] MEDS: NICOTINE 14 MG/24 HR PATCH TD SCH (11:43)
[2022-05-22] MEDS: INSULIN ASPART PER UNIT SC SCH ×3 (12:11→22:08)
[2022-05-22] MEDS: CYCLOBENZAPRINE HCL 5 MG TAB PO PRN ×2 (12:12→22:45)
[2022-05-22] MEDS: LORazepam 0.5 MG TAB PO PRN ×2 (12:12→22:11)
[2022-05-22] MEDS: buprenorphine HCL 8 MG SUBL SL SCH ×2 (14:13→22:00)
[2022-05-22] MEDS ORDERED: metOLazone 2.5 MG TABLET PO ONE (14:33)
--- NOTE | 2022-05-22 14:38 | Hospitalist Progress Note ---
Date of Service May 22, 2022 Assessment & Plan (1) Acute exacerbation of CHF (congestive heart failure): Plan: - could be related to underlying infection as patient has wheezing and cough as well as suprapubic dyscomfort - reports 35lbs weight gain in last week - LEs markedly swollen with tense skin, no pitting edema - TTE from 07/2021 with EF 60% Plan: - Will continue on lasix 40mg iv twice daily; also will give metalazone 2.5mg on e dose today. - strict I/O - echo done; no change compared to previous echo - telemetry - continue other home medications (2) COPD exacerbation: Plan: - no consolidation on CXR but unchanged pleural effusion on left side - diffuse wheezing heard throughout - no indication for abx at this time - will give duoneb around the clock - continue home inhalers (3) Leukocytosis: Plan: - unclear etiology - infection vs stress response -Urine analysis shows 2 + leukocyte esterase. - On ceftriaxone currently; will follow up on urine cx. If negative; will discontinue antiboitics. (4) History of pulmonary embolism: Plan: - on Coumadin daily - INR daily while inpatient - dose was 2.4mg on Sundays, 5mg all other days - no signs of bleeding at this time (5) DM2 (diabetes mellitus, type 2): Plan: - recent A1c 7.4 03/2022 - started on glargine 30 Units twice daily. - SSI for now - AC+HS - diabetic diet (6) Morbid obesity: Plan: - noted (7) BPH (benign prostatic hyperplasia): Plan: - continue tamsulosin, finasteride - no Fontaine for now. (8) Urinary retention: Plan: - reportedly making urine since removed fontaine - will monitor, bladder scan prn - Urology on board Plan DVT ppx: coumadin Code Status: Full code Dispo: telemetry Admission and Anticipated Discharge Date Admission Date: May 22, 2022 Subjective Patient seen in his examined at bedside. Is comfortably sitting up on the bed; not in any distress. Denies any chest pain, shortness of breath, fever, chills or abdominal pain. Review of Systems Review of Systems: All systems reviewed & are unremarkable except as noted in Subjective Physical Exam Physical Exam: Constitutional:L WD/WN, vitals as a bairon + morbidly o bese; no acute dis tress Eyes: PERRL, conjunctiva e normal, anicteri c sclerae ENMT: external ear and n ose normal, oropha rynx normal Neck: trachea midline, n o thyromegaly + t hick neck Respiratory: normal respiratory effort and + coug h; no respiratory distress, no labor ed breathing and n ot tachypneic. Whe joan present; crack les not apprciated Cardiovascular:L RRR, no murmur, no edema Gastrointestinal ( Abdomen): normal bowel sound s, soft, nontender , no hepatosplenom egaly Musculoskeletal: no cyanosis or clu bbing, extremities motor strength 5/ 5 bilateral LE ed naveen with chronic s kin changes Skin: no rashes, warm an d dry Neurologic: patellar DTR's 2+ bilat, sensation i ntact and PERRL, E ELOISE, accommodation nl, no face palsy , no dysarthria Psychiatric: A+Ox3, euthymic af fect Results & Data Results & Data ([facility]) Vital Signs (Past 12 Hours) Vital Signs Temp Pulse Resp BP Pulse Ox Pulse Ox O2 Del Method 05/22/22 11:18 Room Air 05/22/22 08:37 90 20 105/73 99 Nasal Cannula 05/22/22 07:02 68 20 99 Nasal Cannula 05/22/22 05:24 94 05/22/22 05:12 36.8 C 79 16 132/70 100 Room Air O2 Del Method O2 Flow Rate 05/22/22 11:18 05/22/22 08:37 4 05/22/22 07:02 4 05/22/22 05:24 Room Air 05/22/22 05:12 Laboratory Results Laboratory Results WBC 11.64 K/ul (4.8-10.8) H 05/22/22 07:14 RBC 4.48 M/uL (4.63-6.08) L 05/22/22 07:14 Hgb 11.7 g/dl (14.0-18.0) L 05/22/22 07:14 Hct 37.0 % (40.1-51.0) L 05/22/22 07:14 MCV 82.6 fL (80.0-100.0) 05/22/22 07:14 MCH 26.1 pg (25.0-34.0) 05/22/22 07:14 MCHC 31.6 g/dL (32.0-36.0) L 05/22/22 07:14 RDW Std Deviation 59.7 fL (36.4-46.3) H 05/22/22 07:14 RDW Coeff of Megan 20.3 % (11.5-14.5) H 05/22/22 07:14 Plt Count 213 K/uL (130-400) 05/22/22 07:14 MPV 10.2 fL (9.4-12.4) 05/22/22 07:14 Immature Gran % (Auto) 0.4 % 05/22/22 07:14 Neut % (Auto) 57.6 % 05/22/22 07:14 Lymph % (Auto) 26.6 % 05/22/22 07:14 Kerr % (Auto) 10.6 % 05/22/22 07:14 Eos % (Auto) 4.2 % 05/22/22 07:14 Baso % (Auto) 0.6 % 05/22/22 07:14 Neut # (Auto) 6.70 K/uL (1.4-6.5) H 05/22/22 07:14 Lymph # (Auto) 3.10 K/uL (1.2-3.4) 05/22/22 07:14 Kerr # (Auto) 1.23 K/uL (0.24-0.82) H 05/22/22 07:14 Eos # (Auto) 0.49 K/uL (0-0.50) 05/22/22 07:14 Baso # (Auto) 0.07 K/uL (0-0.2) 05/22/22 07:14 Immature Gran # (Auto) 0.05 K/uL (0.00-0.02) H 05/22/22 07:14 Polychromasia 1+ 05/22/22 07:14 Anisocytosis Present 05/22/22 07:14 Sodium 137 mmol/L (136-145) 05/22/22 04:37 Potassium 4.7 mmol/L (3.5-5.1) 05/22/22 04:37 Chloride 105 mmol/L (98-107) 05/22/22 04:37 Carbon Dioxide 28 mmol/L (21-32) 05/22/22 04:37 Anion Gap 4 (3-11) 05/22/22 04:37 BUN 14 mg/dl (6-23) 05/22/22 04:37 Creatinine 0.90 mg/dl (0.6-1.4) 05/22/22 04:37 Est Cr Clr Drug Dosing Not Reportable 05/22/22 04:37 Est GFR ( Amer) 114.2 ml/min 05/22/22 04:37 Est GFR (Non-Af Amer) 98.5 ml/min 05/22/22 04:37 BUN/Creatinine Ratio 15.6 (10-20) 05/22/22 04:37 Glucose 172 mg/dl (70-99(Fasting)) H 05/22/22 04:37 POC Glucose 201 mg/dl (70-99) H 05/22/22 11:43 Calcium 9.5 mg/dl (8.5-10.1) 05/22/22 04:37 Magnesium 2.0 mg/dl (1.7-2.4) 05/22/22 04:37 Total Bilirubin 0.9 mg/dl (0.2-1.0) 05/22/22 04:37 AST 14 U/L (13-39) 05/22/22 04:37 ALT 9 U/L (7-52) 05/22/22 04:37 Alkaline Phosphatase 89 U/L (34-104) 05/22/22 04:37 Troponin I High Sens 4.7 pg/ml (0-20) 05/21/22 22:36 B-Natriuretic Peptide 16 pg/ml (0-100) 05/21/22 22:36 Total Protein 6.2 gm/dl (6.0-8.3) 05/22/22 04:37 Albumin 3.4 gm/dl (3.4-5.0) 05/22/22 04:37 Globulin 2.8 gm/dl (2.5-4.0) 05/22/22 04:37 Albumin/Globulin Ratio 1.2 (0.9-2) 05/22/22 04:37 Lipase 16 U/L (11-82) 05/21/22 22:36 Urine Color Yellow 05/22/22 05:00 Urine Appearance Cloudy (Clear) A 05/22/22 05:00 Urine pH 6.0 (4.5-7.5) 05/22/22 05:00 Ur Specific [place] 1.022 (1.000-1.030) 05/22/22 05:00 Urine Protein Negative (Negative) 05/22/22 05:00 Urine Glucose (UA) Negative (Negative) 05/22/22 05:00 Urine Ketones Negative (Negative) 05/22/22 05:00 Urine Blood 1+ (Negative) H 05/22/22 05:00 Urine Nitrite Negative (Negative) 05/22/22 05:00 Urine Bilirubin Negative (Negative) 05/22/22 05:00 Urine Urobilinogen Negative (Negative) 05/22/22 05:00 Ur Leukocyte Esterase 2+ (Negative) H 05/22/22 05:00 Urine WBC (Auto) 10-30 /hpf (0-5) H 05/22/22 05:00 Urine RBC (Auto) 10-30 /hpf (0-4) H 05/22/22 05:00 U Hyaline Cast (Auto) 1-5 /lpf (0-5) 05/22/22 05:00 U Epithel Cells (Auto) >30 /lpf (0-5) H 05/22/22 05:00 Urine Bacteria (Auto) Negative (Negative) 05/22/22 05:00 SARS-CoV-2, RNA, NAAT NEGATIVE (NEGATIVE) 05/21/22 22:04 Impressions Chest X-Ray 05/21/22 21:45 XR chest 1V portable CLINICAL HISTORY: Atypical chest pain. Shortness of breath. COMPARISON STUDY: Chest radiograph April 15, 2022. FINDINGS: There is no pneumothorax. There are small bilateral pleural effusions. Cardiomegaly is unchanged. Pulmonary vascular congestion is similar to prior exam. There is possible left basilar opacity. IMPRESSION: 1. Cardiomegaly. Pulmonary vascular congestion, similar to prior exam. 2. Small bilateral pleural effusions. 3. Possible left basilar opacity. This is likely artifactual however consolidation could appear similar. ACT 112: Negative or not required by law. Electronically signed by: Evelio Corbin M.D. 05/22/2022 8:57 AM (1) Leukocytosis Leukocytosis type: unspecified Qualified Code(s): D72.829 - Elevated white blood cell count, unspecified
--- NOTE | 2022-05-22 14:54 | Electrocardiogram Report ---
Test Reason : Blood Pressure : / mmHG Vent. Rate : 099 BPM Atrial Rate : 099 BPM P-R Int : 160 ms QRS Dur : 104 ms QT Int : 328 ms P-R-T Axes : 038 024 042 degrees QTc Int : 420 ms Normal sinus rhythm Nonspecific ST abnormality Incomplete right bundle branch block Abnormal ECG When compared with ECG of 16-MAY-2022 00:36, No significant change was found Confirmed by Luan Escalante ([id number]) on 05/22/2022 2:53:51 PM Referred By: REFERRED SELF Confirmed By:Mark Escalante
[2022-05-22] MEDS ORDERED: WARFARIN SOD 5 MG TAB PO SCH (16:00)
[2022-05-22 19:47] LABS: Prothrombin Time 83.6 Seconds (9.0-12.0)
[2022-05-22 19:57] LABS: INR 8.8 (0.9-1.1)
[2022-05-22] MEDS: FUROSEMIDE 40 MG/4 ML VIAL IV SCH (21:56)
[2022-05-22] MEDS: NYSTATIN POWDER 15GM BTL EXT SCH (22:10)
[2022-05-23] MEDS: ALBUT/IPRATROP 3MG/0.5MG NEB 3 ML VIAL NEB SCH ×4 (00:18→19:10)
[2022-05-23] MEDS ORDERED: SODIUM CHLORIDE 0.65% NA SOLN 45 ML (OCEAN) PRN (02:00)
[2022-05-23] MEDS: ONDANSETRON INJ 2 MG/ML 2 ML VIAL IV PRN ×4 (05:12→23:15)
[2022-05-23] MEDS: buprenorphine HCL 8 MG SUBL SL SCH ×3 (05:57→21:36)
[2022-05-23] MEDS: ACETAMINOPHEN 1000 MG/100 ML IV IV PRN ×2 (05:58→16:48)
[2022-05-23] MEDS: cefTRIAXone SODIUM 2,000 MG in DEXTROSE 5% 50 ML IV SCH (06:19)
[2022-05-23 06:37] LABS: Basophils # (auto) 0.07 K/uL (0-0.2); Basophils % (auto) 0.7 %; Eosinophils # (auto) 0.34 K/uL (0-0.50); Eosinophils % (auto) 3.3 %; Hematocrit (blood only) 37.6 % (40.1-51.0); Hemoglobin 12.1 g/dl (14.0-18.0); Immature Granulocytes # (auto) 0.05 K/uL (0.00-0.02); Immature Granulocytes % (auto) 0.5 %; Lymphocytes % (auto) 13.8 %; Mean Corpuscular Hgb Conc 32.2 g/dL (32.0-36.0); Mean Corpuscular Volume 80.7 fL (80.0-100.0); Mean Platelet Volume 10.5 fL (9.4-12.4); Monocytes # (auto) 0.78 K/uL (0.24-0.82); Monocytes % (auto) 7.7 %; Neutrophils # (auto) 7.54 K/uL (1.4-6.5); Platelet Count 226 K/uL (130-400); RDW Coefficient of Variation 20.2 % (11.5-14.5); RDW Standard Deviation 57.5 fL (36.4-46.3); Red Blood Count 4.66 M/uL (4.63-6.08); White Blood Count 10.18 K/ul (4.8-10.8)
[2022-05-23 07:07] LABS: Polychromasia 1+
[2022-05-23 07:12] LABS: Albumin Globulin Ratio 1.2 (0.9-2); Albumin Level 3.3 gm/dl (3.4-5.0); BUN Creatinine Ratio 14.7 (10-20); Bilirubin,Total 0.7 mg/dl (0.2-1.0); Calcium 8.9 mg/dl (8.5-10.1); Creatinine Clr Calc Pharmacy 218.5 ml/min; Est GFR (African American) 123.1 ml/min; Est GFR (Non-African American) 106.2 ml/min; Globulin 2.8 gm/dl (2.5-4.0); Phosphorus 3.7 mg/dl (2.5-4.9); Potassium 3.7 mmol/L (3.5-5.1); Total Protein 6.1 gm/dl (6.0-8.3)
[2022-05-23] MEDS ORDERED: AMPICILLIN 1,000 MG in SODIUM CHLOR 0.9% AD-VAN 50 ML IV SCH (07:30)
[2022-05-23 08:02] LABS: INR 6.7 (0.9-1.1)
[2022-05-23] MEDS: NICOTINE 14 MG/24 HR PATCH TD SCH (09:20)
[2022-05-23] MEDS: GABAPENTIN 800 MG TAB PO SCH ×3 (09:21→21:38)
[2022-05-23] MEDS: FUROSEMIDE 40 MG/4 ML VIAL IV SCH ×2 (09:21→21:37)
[2022-05-23] MEDS: NYSTATIN POWDER 15GM BTL EXT SCH (09:21)
[2022-05-23] MEDS: FERROUS SULFATE 325 MG TAB PO SCH (09:21)
[2022-05-23] MEDS: SPIRONOLACTONE 25 MG TAB PO SCH (09:22)
[2022-05-23] MEDS: SENNA 8.6 MG TAB PO SCH (09:22)
[2022-05-23] MEDS: DULoxetine HCL 60 MG CAP PO SCH (09:22)
[2022-05-23] MEDS: FOLIC ACID 1 MG TAB PO SCH (09:22)
[2022-05-23] MEDS: ATORVASTATIN 40 MG TAB PO SCH (09:22)
[2022-05-23] MEDS: CYCLOBENZAPRINE HCL 5 MG TAB PO PRN ×2 (09:23→23:10)
[2022-05-23] MEDS: FINASTERIDE 5 MG TAB PO SCH (09:23)
[2022-05-23] MEDS: FAMOTIDINE 40 MG TABLET PO SCH (09:23)
[2022-05-23] MEDS: DOCUSATE SODIUM 100 MG CAP PO SCH ×2 (09:23→21:39)
[2022-05-23] MEDS: UMECLIDINIUM BROMIDE 62.5MCG/BLISTER 7 PUFFS/INHALER INH SCH (09:24)
[2022-05-23] MEDS: FLUTICASONE/VILANTEROL 200/25MCG 14 PUFFS/INHALER INH SCH (09:24)
[2022-05-23] MEDS: ASPIRIN 81 MG ECTAB PO SCH (09:24)
[2022-05-23] MEDS: INSULIN ASPART PER UNIT SC SCH ×4 (09:33→21:41)
[2022-05-23] MEDS: LANTUS PER UNIT CHARGE SQ SCH ×2 (09:34→21:42)
[2022-05-23] MEDS: LORazepam 0.5 MG TAB PO PRN ×2 (09:40→21:36)
[2022-05-23] MEDS: AMPICILLIN 2,000 MG in SODIUM CHLOR 0.9% AD-VAN 100 ML IV SCH ×3 (09:50→21:32)
[2022-05-23] MEDS: TAMSULOSIN HCL 0.4 MG CAP PO SCH (10:02)
--- NOTE | 2022-05-23 12:22 | Hospitalist Progress Note ---
Date of Service May 23, 2022 Assessment & Plan (1) Acute exacerbation of CHF (congestive heart failure): Plan: - could be related to underlying infection as patient has wheezing and cough as well as suprapubic dyscomfort - reports 35lbs weight gain in last week - LEs markedly swollen with tense skin, no pitting edema - TTE from 07/2021 with EF 60% -Repeat TTE this admission shows similar EF; grade 2 diastolic dysfunction Plan: - Will continue on lasix 40mg iv twice daily. Doing well on current dosing of diuretics. BMP daily. Daily weights. - strict I/O - telemetry - continue other home medications (2) COPD exacerbation: Plan: - no consolidation on CXR but unchanged pleural effusion on left side -Occasional wheezing on chest examination - no indication for abx at this time - will give duoneb around the clock - continue home inhalers (3) Leukocytosis: Plan: -Urine analysis shows 2 + leukocyte esterase. -Urine culture from 05/11 showed Enterococcus faecalis; currently on ampicillin every 6 hours. (4) History of pulmonary embolism: Plan: INR is supratherapeutic; today down trended to 6.7. Will continue to hold his warfarin. Monitor for any signs of bleeding. (5) DM2 (diabetes mellitus, type 2): Plan: - recent A1c 7.4 03/2022 - started on glargine 30 Units twice daily. -POCT glucose in the range of 1 70-200 - SSI for now - AC+HS - diabetic diet (6) Morbid obesity: Plan: - noted (7) BPH (benign prostatic hyperplasia): Plan: - continue tamsulosin, finasteride -Unable to urinate by himself; Lloyd placed. (8) Urinary retention: Plan: Lloyd placed again for urinary retention. Plan DVT ppx: coumadin on hold currently as INR is supratherapeutic. Code Status: Full code Dispo: telemetry Admission and Anticipated Discharge Date Admission Date: May 22, 2022 Subjective Patient seen and examined at bedside. He was sitting up on the bed; not in any acute distress. He was in room air saturating well. Urine output was 3800 mL with negative balance of 2910. Patient requested to have a Lloyd placed in due to difficulty in urinating. Review of Systems Review of Systems: All systems reviewed & are unremarkable except as noted in Subjective Physical Exam Physical Exam: Constitutional:L WD/WN, vitals as a bairon + morbidly o bese; no acute dis tress Eyes: PERRL, conjunctiva e normal, anicteri c sclerae ENMT: external ear and n ose normal, oropha rynx normal Neck: trachea midline, n o thyromegaly + t hick neck Respiratory: normal respiratory effort and + coug h; no respiratory distress, no labor ed breathing and n ot tachypneic Aus cultation: + dimin ished lung sounds and + wheezes Cardiovascular:L RRR, no murmur, no edema Gastrointestinal ( Abdomen): normal bowel sound s, soft, nontender , no hepatosplenom egaly Musculoskeletal: no cyanosis or clu bbing, extremities motor strength 5/ 5 bilateral LE ed naveen with chronic s kin changes Skin: no rashes, warm an d dry Neurologic: patellar DTR's 2+ bilat, sensation i ntact and PERRL, E ELOISE, accommodation nl, no face palsy , no dysarthria Psychiatric: A+Ox3, euthymic af fec Results & Data Results & Data ([facility]) Vital Signs (Past 12 Hours) Vital Signs Temp Pulse Pulse Resp BP Pulse Ox O2 Del Method 05/23/22 11:49 36.6 C 100 H 20 152/71 H 90 Room Air 05/23/22 03:54 36.5 C 93 H 18 148/74 H 98 Nasal Cannula 05/23/22 01:16 98 H O2 Flow Rate 05/23/22 11:49 05/23/22 03:54 4 05/23/22 01:16 Diagnostic Findings Laboratory Results WBC 10.18 K/ul (4.8-10.8) 05/23/22 06:09 RBC 4.66 M/uL (4.63-6.08) 05/23/22 06:09 Hgb 12.1 g/dl (14.0-18.0) L 05/23/22 06:09 Hct 37.6 % (40.1-51.0) L 05/23/22 06:09 MCV 80.7 fL (80.0-100.0) 05/23/22 06:09 MCH 26.0 pg (25.0-34.0) 05/23/22 06:09 MCHC 32.2 g/dL (32.0-36.0) 05/23/22 06:09 RDW Std Deviation 57.5 fL (36.4-46.3) H 05/23/22 06:09 RDW Coeff of Megan 20.2 % (11.5-14.5) H 05/23/22 06:09 Plt Count 226 K/uL (130-400) 05/23/22 06:09 MPV 10.5 fL (9.4-12.4) 05/23/22 06:09 Immature Gran % (Auto) 0.5 % 05/23/22 06:09 Neut % (Auto) 74.0 % 05/23/22 06:09 Lymph % (Auto) 13.8 % 05/23/22 06:09 [place] % (Auto) 7.7 % 05/23/22 06:09 Eos % (Auto) 3.3 % 05/23/22 06:09 Baso % (Auto) 0.7 % 05/23/22 06:09 Neut # (Auto) 7.54 K/uL (1.4-6.5) H 05/23/22 06:09 Lymph # (Auto) 1.40 K/uL (1.2-3.4) 05/23/22 06:09 [place] # (Auto) 0.78 K/uL (0.24-0.82) 05/23/22 06:09 Eos # (Auto) 0.34 K/uL (0-0.50) 05/23/22 06:09 Baso # (Auto) 0.07 K/uL (0-0.2) 05/23/22 06:09 Immature Gran # (Auto) 0.05 K/uL (0.00-0.02) H 05/23/22 06:09 Polychromasia 1+ 05/23/22 06:09 Anisocytosis Present 05/22/22 07:14 PT 64.0 Seconds (9.0-12.0) H 05/23/22 06:09 INR 6.7 (0.9-1.1) H* 05/23/22 06:09 Sodium 139 mmol/L (136-145) 05/23/22 06:09 Potassium 3.7 mmol/L (3.5-5.1) D 05/23/22 06:09 Chloride 102 mmol/L (98-107) 05/23/22 06:09 Carbon Dioxide 32 mmol/L (21-32) 05/23/22 06:09 Anion Gap 5 (3-11) 05/23/22 06:09 BUN 11 mg/dl (6-23) 05/23/22 06:09 Creatinine 0.75 mg/dl (0.6-1.4) 05/23/22 06:09 Est Cr Clr Drug Dosing 218.5 ml/min 05/23/22 06:09 Est GFR ( Amer) 123.1 ml/min 05/23/22 06:09 Est GFR (Non-Af Amer) 106.2 ml/min 05/23/22 06:09 BUN/Creatinine Ratio 14.7 (10-20) 05/23/22 06:09 Glucose 170 mg/dl (70-99(Fasting)) H 05/23/22 06:09 POC Glucose 175 mg/dl (70-99) H 05/23/22 11:39 Calcium 8.9 mg/dl (8.5-10.1) 05/23/22 06:09 Phosphorus 3.7 mg/dl (2.5-4.9) 05/23/22 06:09 Magnesium 2.0 mg/dl (1.7-2.4) 05/22/22 04:37 Total Bilirubin 0.7 mg/dl (0.2-1.0) 05/23/22 06:09 AST 11 U/L (13-39) L 05/23/22 06:09 ALT 10 U/L (7-52) 05/23/22 06:09 Alkaline Phosphatase 93 U/L (34-104) 05/23/22 06:09 Troponin I High Sens 4.7 pg/ml (0-20) 05/21/22 22:36 B-Natriuretic Peptide 16 pg/ml (0-100) 05/21/22 22:36 Total Protein 6.1 gm/dl (6.0-8.3) 05/23/22 06:09 Albumin 3.3 gm/dl (3.4-5.0) L 05/23/22 06:09 Globulin 2.8 gm/dl (2.5-4.0) 05/23/22 06:09 Albumin/Globulin Ratio 1.2 (0.9-2) 05/23/22 06:09 Lipase 16 U/L (11-82) 05/21/22 22:36 Urine Color Yellow 05/22/22 05:00 Urine Appearance Cloudy (Clear) A 05/22/22 05:00 Urine pH 6.0 (4.5-7.5) 05/22/22 05:00 Ur Specific [place] 1.022 (1.000-1.030) 05/22/22 05:00 Urine Protein Negative (Negative) 05/22/22 05:00 Urine Glucose (UA) Negative (Negative) 05/22/22 05:00 Urine Ketones Negative (Negative) 05/22/22 05:00 Urine Blood 1+ (Negative) H 05/22/22 05:00 Urine Nitrite Negative (Negative) 05/22/22 05:00 Urine Bilirubin Negative (Negative) 05/22/22 05:00 Urine Urobilinogen Negative (Negative) 05/22/22 05:00 Ur Leukocyte Esterase 2+ (Negative) H 05/22/22 05:00 Urine WBC (Auto) 10-30 /hpf (0-5) H 05/22/22 05:00 Urine RBC (Auto) 10-30 /hpf (0-4) H 05/22/22 05:00 U Hyaline Cast (Auto) 1-5 /lpf (0-5) 05/22/22 05:00 U Epithel Cells (Auto) >30 /lpf (0-5) H 05/22/22 05:00 Urine Bacteria (Auto) Negative (Negative) 05/22/22 05:00 SARS-CoV-2, RNA, NAAT NEGATIVE (NEGATIVE) 05/21/22 22:04 Impressions Chest X-Ray 05/21/22 21:45 XR chest 1V portable CLINICAL HISTORY: Atypical chest pain. Shortness of breath. COMPARISON STUDY: Chest radiograph April 15, 2022. FINDINGS: There is no pneumothorax. There are small bilateral pleural effusions. Cardiomegaly is unchanged. Pulmonary vascular congestion is similar to prior exam. There is possible left basilar opacity. IMPRESSION: 1. Cardiomegaly. Pulmonary vascular congestion, similar to prior exam. 2. Small bilateral pleural effusions. 3. Possible left basilar opacity. This is likely artifactual however consolidation could appear similar. ACT 112: Negative or not required by law. Electronically signed by: Evelio Corbin M.D. 05/22/2022 8:57 AM (1) Leukocytosis Leukocytosis type: unspecified Qualified Code(s): D72.829 - Elevated white blood cell count, unspecified
[2022-05-24] MEDS: ACETAMINOPHEN 1000 MG/100 ML IV IV PRN ×3 (00:23→17:49)
[2022-05-24] MEDS: guaiFENesin 600 MG TABCR PO PRN (00:31)
[2022-05-24] MEDS: ALBUT/IPRATROP 3MG/0.5MG NEB 3 ML VIAL NEB SCH ×4 (00:40→19:19)
[2022-05-24] MEDS: AMPICILLIN 2,000 MG in SODIUM CHLOR 0.9% AD-VAN 100 ML IV SCH ×2 (01:28→15:29)
[2022-05-24] MEDS: buprenorphine HCL 8 MG SUBL SL SCH ×4 (06:23→21:37)
[2022-05-24 07:05] LABS: Hematocrit (blood only) 37.3 % (40.1-51.0); Hemoglobin 12.1 g/dl (14.0-18.0); Mean Corpuscular Hemoglobin 26.1 pg (25.0-34.0); Mean Corpuscular Hgb Conc 32.4 g/dL (32.0-36.0); Mean Corpuscular Volume 80.6 fL (80.0-100.0); Mean Platelet Volume 10.5 fL (9.4-12.4); Platelet Count 239 K/uL (130-400); RDW Coefficient of Variation 19.8 % (11.5-14.5); Red Blood Count 4.63 M/uL (4.63-6.08); White Blood Count 10.09 K/ul (4.8-10.8)
[2022-05-24 07:28] LABS: Albumin Globulin Ratio 1.3 (0.9-2); Albumin Level 3.4 gm/dl (3.4-5.0); BUN Creatinine Ratio 12.7 (10-20); Bilirubin,Total 0.7 mg/dl (0.2-1.0); Calcium 8.8 mg/dl (8.5-10.1); Est GFR (African American) 98.2 ml/min; Est GFR (Non-African American) 84.7 ml/min; Globulin 2.7 gm/dl (2.5-4.0); Potassium 3.1 mmol/L (3.5-5.1); Total Protein 6.1 gm/dl (6.0-8.3)
--- NOTE | 2022-05-24 08:54 | Hospitalist Progress Note ---
Date of Service May 24, 2022 Assessment & Plan (1) Acute exacerbation of CHF (congestive heart failure): Plan: - could be related to underlying infection as patient has wheezing and cough as well as suprapubic dyscomfort - reports 35lbs weight gain in last week - LEs markedly swollen with tense skin, no pitting edema - TTE from 07/2021 with EF 60% -Repeat TTE this admission shows similar EF; grade 2 diastolic dysfunction Plan: -His weight has decreased to 205.5 kg; dry weight is around 200 kg. Will continue on lasix 40mg iv twice daily. Doing well on current dosing of diuretics. BMP daily. Daily weights. - strict I/O - telemetry - continue other home medications (2) COPD exacerbation: Plan: - no consolidation on CXR but unchanged pleural effusion on left side -Occasional wheezing on chest examination - no indication for abx at this time - will give duoneb around the clock - continue home inhalers (3) Leukocytosis: Plan: - Resolved -Urine analysis shows 2 + leukocyte esterase. -Urine culture from 05/11 showed Enterococcus faecalis; currently on ampicillin every 6 hours. -Urine culture this admissionnormal isabel. We will stop antibiotics. (4) History of pulmonary embolism: Plan: INR is supratherapeutic; down trended to 6.7. Will continue to hold his warfarin. Monitor for any signs of bleeding. (5) DM2 (diabetes mellitus, type 2): Plan: - recent A1c 7.4 03/2022 - started on glargine 30 Units twice daily. -POCT glucose in the range of 1 70-200 - SSI for now - AC+HS - diabetic diet (6) Morbid obesity: Plan: - noted (7) BPH (benign prostatic hyperplasia): Plan: - continue tamsulosin, finasteride -Unable to urinate by himself; Lloyd placed. (8) Urinary retention: Plan: Lloyd placed again for urinary retention. Plan DVT ppx: coumadin on hold currently as INR is supratherapeutic. Code Status: Full code Dispo: telemetry Admission and Anticipated Discharge Date Admission Date: May 22, 2022 Subjective Patient seen and examined at bedside. Is saturating well in room air; not in any acute distress. Lloyd is in place draining clear urine. He had 5.5 L urine output in last 24 hours. His weight is 205.5 kg this morning. Telemetry shows sinus rhythm; no arrhythmia overnight Review of Systems Review of Systems: All systems reviewed & are unremarkable except as noted in Subjective Physical Exam Physical Exam: Constitutional:L WD/WN, vitals as a bairon + morbidly o bese; no acute dis tress Eyes: PERRL, conjunctiva e normal, anicteri c sclerae ENMT: external ear and n ose normal, oropha rynx normal Neck: trachea midline, n o thyromegaly + t hick neck Respiratory: normal respiratory effort and + coug h; no respiratory distress, no labor ed breathing and n ot tachypneic Aus cultation: + dimin ished lung sounds and + wheezes Cardiovascular:L RRR, no murmur, no edema Gastrointestinal ( Abdomen): normal bowel sound s, soft, nontender , no hepatosplenom egaly Musculoskeletal: no cyanosis or clu bbing, extremities motor strength 5/ 5 bilateral LE ed naveen with chronic s kin changes Skin: no rashes, warm an d dry Neurologic: patellar DTR's 2+ bilat, sensation i ntact and PERRL, E ELOISE, accommodation nl, no face palsy , no dysarthria Psychiatric: A+Ox3, euthymic af fec Results & Data Results & Data ([facility]) Vital Signs (Past 12 Hours) Vital Signs Temp Pulse Pulse Resp BP Pulse Ox O2 Del Method 05/24/22 07:11 88 20 96 Nasal Cannula 05/24/22 06:56 36.4 C L 86 18 143/77 H 97 Nasal Cannula 05/24/22 03:41 36.6 C 104 H 18 163/69 H 96 Nasal Cannula 05/24/22 01:40 93 H 05/24/22 01:39 114 H 05/24/22 00:40 93 H 22 99 Nasal Cannula 05/24/22 00:00 36.6 C 91 H 20 114/75 99 Nasal Cannula 05/23/22 22:00 O2 Flow Rate 05/24/22 07:11 4 05/24/22 06:56 4 05/24/22 03:41 4 05/24/22 01:40 05/24/22 01:39 05/24/22 00:40 4 05/24/22 00:00 4 05/23/22 22:00 4 Laboratory Results Laboratory Results WBC 10.09 K/ul (4.8-10.8) 05/24/22 06:23 RBC 4.63 M/uL (4.63-6.08) 05/24/22 06:23 Hgb 12.1 g/dl (14.0-18.0) L 05/24/22 06:23 Hct 37.3 % (40.1-51.0) L 05/24/22 06:23 MCV 80.6 fL (80.0-100.0) 05/24/22 06:23 MCH 26.1 pg (25.0-34.0) 05/24/22 06:23 MCHC 32.4 g/dL (32.0-36.0) 05/24/22 06:23 RDW Std Deviation 57.0 fL (36.4-46.3) H 05/24/22 06:23 RDW Coeff of Megan 19.8 % (11.5-14.5) H 05/24/22 06:23 Plt Count 239 K/uL (130-400) 05/24/22 06:23 MPV 10.5 fL (9.4-12.4) 05/24/22 06:23 Immature Gran % (Auto) 0.5 % 05/23/22 06:09 Neut % (Auto) 74.0 % 05/23/22 06:09 Lymph % (Auto) 13.8 % 05/23/22 06:09 [place] % (Auto) 7.7 % 05/23/22 06:09 Eos % (Auto) 3.3 % 05/23/22 06:09 Baso % (Auto) 0.7 % 05/23/22 06:09 Neut # (Auto) 7.54 K/uL (1.4-6.5) H 05/23/22 06:09 Lymph # (Auto) 1.40 K/uL (1.2-3.4) 05/23/22 06:09 [place] # (Auto) 0.78 K/uL (0.24-0.82) 05/23/22 06:09 Eos # (Auto) 0.34 K/uL (0-0.50) 05/23/22 06:09 Baso # (Auto) 0.07 K/uL (0-0.2) 05/23/22 06:09 Immature Gran # (Auto) 0.05 K/uL (0.00-0.02) H 05/23/22 06:09 Polychromasia 1+ 05/23/22 06:09 Anisocytosis Present 05/22/22 07:14 PT 64.0 Seconds (9.0-12.0) H 05/23/22 06:09 INR 6.7 (0.9-1.1) H* 05/23/22 06:09 Sodium 137 mmol/L (136-145) 05/24/22 06:23 Potassium 3.1 mmol/L (3.5-5.1) L 05/24/22 06:23 Chloride 96 mmol/L (98-107) L 05/24/22 06:23 Carbon Dioxide 36 mmol/L (21-32) H 05/24/22 06:23 Anion Gap 5 (3-11) 05/24/22 06:23 BUN 13 mg/dl (6-23) 05/24/22 06:23 Creatinine 1.02 mg/dl (0.6-1.4) 05/24/22 06:23 Est Cr Clr Drug Dosing 156.0 ml/min 05/24/22 06:23 Est GFR ( Amer) 98.2 ml/min 05/24/22 06:23 Est GFR (Non-Af Amer) 84.7 ml/min 05/24/22 06:23 BUN/Creatinine Ratio 12.7 (10-20) 05/24/22 06:23 Glucose 171 mg/dl (70-99(Fasting)) H 05/24/22 06:23 POC Glucose 186 mg/dl (70-99) H 05/24/22 07:45 Calcium 8.8 mg/dl (8.5-10.1) 05/24/22 06:23 Phosphorus 3.7 mg/dl (2.5-4.9) 05/23/22 06:09 Magnesium 2.0 mg/dl (1.7-2.4) 05/22/22 04:37 Total Bilirubin 0.7 mg/dl (0.2-1.0) 05/24/22 06:23 AST 12 U/L (13-39) L 05/24/22 06:23 ALT 10 U/L (7-52) 05/24/22 06:23 Alkaline Phosphatase 86 U/L (34-104) 05/24/22 06:23 Troponin I High Sens 4.7 pg/ml (0-20) 05/21/22 22:36 B-Natriuretic Peptide 16 pg/ml (0-100) 05/21/22 22:36 Total Protein 6.1 gm/dl (6.0-8.3) 05/24/22 06:23 Albumin 3.4 gm/dl (3.4-5.0) 05/24/22 06:23 Globulin 2.7 gm/dl (2.5-4.0) 05/24/22 06:23 Albumin/Globulin Ratio 1.3 (0.9-2) 05/24/22 06:23 Lipase 16 U/L (11-82) 05/21/22 22:36 Urine Color Yellow 05/22/22 05:00 Urine Appearance Cloudy (Clear) A 05/22/22 05:00 Urine pH 6.0 (4.5-7.5) 05/22/22 05:00 Ur Specific [place] 1.022 (1.000-1.030) 05/22/22 05:00 Urine Protein Negative (Negative) 05/22/22 05:00 Urine Glucose (UA) Negative (Negative) 05/22/22 05:00 Urine Ketones Negative (Negative) 05/22/22 05:00 Urine Blood 1+ (Negative) H 05/22/22 05:00 Urine Nitrite Negative (Negative) 05/22/22 05:00 Urine Bilirubin Negative (Negative) 05/22/22 05:00 Urine Urobilinogen Negative (Negative) 05/22/22 05:00 Ur Leukocyte Esterase 2+ (Negative) H 05/22/22 05:00 Urine WBC (Auto) 10-30 /hpf (0-5) H 05/22/22 05:00 Urine RBC (Auto) 10-30 /hpf (0-4) H 05/22/22 05:00 U Hyaline Cast (Auto) 1-5 /lpf (0-5) 05/22/22 05:00 U Epithel Cells (Auto) >30 /lpf (0-5) H 05/22/22 05:00 Urine Bacteria (Auto) Negative (Negative) 05/22/22 05:00 SARS-CoV-2, RNA, NAAT NEGATIVE (NEGATIVE) 05/21/22 22:04 Impressions Chest X-Ray 05/21/22 21:45 XR chest 1V portable CLINICAL HISTORY: Atypical chest pain. Shortness of breath. COMPARISON STUDY: Chest radiograph April 15, 2022. FINDINGS: There is no pneumothorax. There are small bilateral pleural effusions. Cardiomegaly is unchanged. Pulmonary vascular congestion is similar to prior exam. There is possible left basilar opacity. IMPRESSION: 1. Cardiomegaly. Pulmonary vascular congestion, similar to prior exam. 2. Small bilateral pleural effusions. 3. Possible left basilar opacity. This is likely artifactual however consolidation could appear similar. ACT 112: Negative or not required by law. Electronically signed by: Evelio Corbin M.D. 05/22/2022 8:57 AM (1) Leukocytosis Leukocytosis type: unspecified Qualified Code(s): D72.829 - Elevated white blood cell count, unspecified
[2022-05-24] MEDS: INSULIN ASPART PER UNIT SC SCH ×4 (09:06→21:39)
[2022-05-24] MEDS: DOCUSATE SODIUM 100 MG CAP PO SCH ×2 (09:08→21:34)
[2022-05-24] MEDS: ASPIRIN 81 MG ECTAB PO SCH (09:08)
[2022-05-24] MEDS: ATORVASTATIN 40 MG TAB PO SCH (09:08)
[2022-05-24] MEDS: FOLIC ACID 1 MG TAB PO SCH (09:09)
[2022-05-24] MEDS: FUROSEMIDE 40 MG/4 ML VIAL IV SCH ×2 (09:09→21:36)
[2022-05-24] MEDS: FAMOTIDINE 40 MG TABLET PO SCH (09:09)
[2022-05-24] MEDS: FINASTERIDE 5 MG TAB PO SCH (09:09)
[2022-05-24] MEDS: DULoxetine HCL 60 MG CAP PO SCH (09:09)
[2022-05-24] MEDS: FERROUS SULFATE 325 MG TAB PO SCH (09:09)
[2022-05-24] MEDS: GABAPENTIN 800 MG TAB PO SCH ×3 (09:09→21:34)
[2022-05-24] MEDS: LANTUS PER UNIT CHARGE SQ SCH ×2 (09:09→21:38)
[2022-05-24] MEDS: NICOTINE 14 MG/24 HR PATCH TD SCH (09:10)
[2022-05-24] MEDS: SENNA 8.6 MG TAB PO SCH (09:10)
[2022-05-24] MEDS: SPIRONOLACTONE 25 MG TAB PO SCH (09:10)
[2022-05-24] MEDS: TAMSULOSIN HCL 0.4 MG CAP PO SCH (09:10)
[2022-05-24] MEDS: NYSTATIN POWDER 15GM BTL EXT SCH (09:10)
[2022-05-24] MEDS: LORazepam 0.5 MG TAB PO PRN ×2 (09:11→21:34)
[2022-05-24] MEDS: CYCLOBENZAPRINE HCL 5 MG TAB PO PRN ×2 (09:14→15:48)
[2022-05-24] MEDS: PROMETHAZINE HCL 12.5 MG/10 ML UDP PO PRN ×2 (09:39→18:29)
[2022-05-24] MEDS: UMECLIDINIUM BROMIDE 62.5MCG/BLISTER 7 PUFFS/INHALER INH SCH (10:24)
[2022-05-24] MEDS: FLUTICASONE/VILANTEROL 200/25MCG 14 PUFFS/INHALER INH SCH (10:24)
[2022-05-24] MEDS ORDERED: POTASSIUM CHLORIDE CRTAB 20 MEQ TABCR PO STA (16:22)
[2022-05-25] MEDS: ALBUT/IPRATROP 3MG/0.5MG NEB 3 ML VIAL NEB SCH ×4 (00:15→19:21)
[2022-05-25] MEDS: ACETAMINOPHEN 1000 MG/100 ML IV IV PRN ×3 (02:23→21:08)
[2022-05-25] MEDS: PROMETHAZINE HCL 12.5 MG/10 ML UDP PO PRN ×3 (02:26→20:42)
[2022-05-25] MEDS: CYCLOBENZAPRINE HCL 5 MG TAB PO PRN ×3 (02:27→22:41)
[2022-05-25 06:35] LABS: Hematocrit (blood only) 43.7 % (40.1-51.0); Mean Corpuscular Hemoglobin 25.8 pg (25.0-34.0); Mean Corpuscular Volume 80.6 fL (80.0-100.0); Mean Platelet Volume 10.2 fL (9.4-12.4); Platelet Count 265 K/uL (130-400); RDW Coefficient of Variation 19.7 % (11.5-14.5); RDW Standard Deviation 55.6 fL (36.4-46.3); Red Blood Count 5.42 M/uL (4.63-6.08)
[2022-05-25 06:42] LABS: INR 3.3 (0.9-1.1); Prothrombin Time 32.7 Seconds (9.0-12.0)
[2022-05-25 07:13] LABS: Alanine Aminotransferase 11 U/L (7-52); Albumin Globulin Ratio 1.2 (0.9-2); Albumin Level 3.9 gm/dl (3.4-5.0); Alkaline Phosphatase 96 U/L (34-104); Aspartate Aminotransferase 14 U/L (13-39); BUN Creatinine Ratio 11.4 (10-20); Bilirubin,Total 0.6 mg/dl (0.2-1.0); Blood Urea Nitrogen 15 mg/dl (6-23); Calcium 9.3 mg/dl (8.5-10.1); Carbon Dioxide > 45 mmol/L (21-32); Chloride 85 mmol/L (98-107); Creatinine Clr Calc Pharmacy 120.8 ml/min; Est GFR (African American) 71.9 ml/min; Globulin 3.2 gm/dl (2.5-4.0); Glucose 177 mg/dl (70-99(Fasting)); Potassium 3.1 mmol/L (3.5-5.1); Sodium 138 mmol/L (136-145); Total Protein 7.1 gm/dl (6.0-8.3)
[2022-05-25] MEDS: ASPIRIN 81 MG ECTAB PO SCH (08:33)
[2022-05-25] MEDS: ATORVASTATIN 40 MG TAB PO SCH (08:34)
[2022-05-25] MEDS: DOCUSATE SODIUM 100 MG CAP PO SCH ×2 (08:34→22:41)
[2022-05-25] MEDS: buprenorphine HCL 8 MG SUBL SL SCH ×3 (08:34→22:41)
[2022-05-25] MEDS: FINASTERIDE 5 MG TAB PO SCH (08:35)
[2022-05-25] MEDS: DULoxetine HCL 60 MG CAP PO SCH (08:35)
[2022-05-25] MEDS: FERROUS SULFATE 325 MG TAB PO SCH (08:35)
[2022-05-25] MEDS: FAMOTIDINE 40 MG TABLET PO SCH (08:35)
[2022-05-25] MEDS: FOLIC ACID 1 MG TAB PO SCH (08:36)
[2022-05-25] MEDS: GABAPENTIN 800 MG TAB PO SCH ×2 (08:36→15:11)
[2022-05-25] MEDS: FUROSEMIDE 40 MG/4 ML VIAL IV SCH ×2 (08:36→20:58)
[2022-05-25] MEDS: FLUTICASONE/VILANTEROL 200/25MCG 14 PUFFS/INHALER INH SCH (08:36)
[2022-05-25] MEDS: NICOTINE 14 MG/24 HR PATCH TD SCH (08:37)
[2022-05-25] MEDS: SENNA 8.6 MG TAB PO SCH (08:37)
[2022-05-25] MEDS: NYSTATIN POWDER 15GM BTL EXT SCH (08:37)
[2022-05-25] MEDS: POTASSIUM CHLORIDE CRTAB 20 MEQ TABCR PO SCH ×2 (08:37→20:43)
[2022-05-25] MEDS: SPIRONOLACTONE 25 MG TAB PO SCH (08:38)
[2022-05-25] MEDS: TAMSULOSIN HCL 0.4 MG CAP PO SCH (08:38)
[2022-05-25] MEDS: UMECLIDINIUM BROMIDE 62.5MCG/BLISTER 7 PUFFS/INHALER INH SCH (08:38)
[2022-05-25] MEDS: INSULIN ASPART PER UNIT SC SCH ×4 (08:43→21:15)
[2022-05-25] MEDS: LANTUS PER UNIT CHARGE SQ SCH ×2 (08:43→21:15)
[2022-05-25] MEDS: LORazepam 0.5 MG TAB PO PRN (08:55)
[2022-05-25] MEDS: guaiFENesin 600 MG TABCR PO PRN ×2 (09:44→22:42)
--- NOTE | 2022-05-25 11:46 | Hospitalist Progress Note ---
Date of Service May 25, 2022 Assessment & Plan (1) Acute exacerbation of CHF (congestive heart failure): Plan: - could be related to underlying infection as patient has wheezing and cough as well as suprapubic dyscomfort - reports 35lbs weight gain in 1 week prior to presentation. - LEs markedly swollen with tense skin, no pitting edema - TTE from 07/2021 with EF 60% -Repeat TTE this admission shows similar EF; grade 2 diastolic dysfunction Plan: -His weight has decreased to 206 kg; dry weight is around 200 kg. Will continue on lasix 40mg iv twice daily. Doing well on current dosing of diuretics. BMP daily. Daily weights. - strict I/O - telemetry - continue other home medications (2) COPD exacerbation: Plan: - no consolidation on CXR but unchanged pleural effusion on left side -Occasional wheezing on chest examination - no indication for abx at this time - will give duoneb around the clock - continue home inhalers (3) Leukocytosis: Plan: - Resolved -Urine analysis shows 2 + leukocyte esterase. -Urine culture from 05/11 showed Enterococcus faecalis; -Urine culture this admissionnormal isabel. He received ceftriaxone and ampicillin prior to culture results. (4) History of pulmonary embolism: Plan: INR is supratherapeutic; down trended to 3.3 Will continue to hold his warfarin. Monitor for any signs of bleeding. (5) DM2 (diabetes mellitus, type 2): Plan: - recent A1c 7.4 03/2022 - started on glargine 30 Units twice daily. -POCT glucose in the range of 1 70-200 - SSI for now - AC+HS - diabetic diet (6) Morbid obesity: Plan: - noted (7) BPH (benign prostatic hyperplasia): Plan: - continue tamsulosin, finasteride -Unable to urinate by himself; Lloyd placed. (8) Urinary retention: Plan: Lloyd placed again for urinary retention. Plan DVT ppx: coumadin on hold currently as INR is supratherapeutic. Code Status: Full code Dispo: telemetry Admission and Anticipated Discharge Date Admission Date: May 22, 2022 Subjective Seen and examined at bedside. He is sitting up on the bed comfortably; not in any acute distress. Urine output in last 24 hours of 9.6L. Telemetry shows sinus rhythm; no abnormal rhythms. Review of Systems Review of Systems: All systems reviewed & are unremarkable except as noted in Subjective Physical Exam Physical Exam: Constitutional:L WD/WN, vitals as a bairon + morbidly o bese; no acute dis tress Eyes: PERRL, conjunctiva e normal, anicteri c sclerae ENMT: external ear and n ose normal, oropha rynx normal Neck: trachea midline, n o thyromegaly + t hick neck Respiratory:L normal respiratory effort and + coug h; no respiratory distress, no labor ed breathing and n ot tachypneic Aus cultation: + dimin ished lung sounds and occasional whe joan Cardiovascular:L RRR, no murmur, no edema Gastrointestinal ( Abdomen): normal bowel sound s, soft, nontender , no hepatosplenom egaly Musculoskeletal: no cyanosis or clu bbing, extremities motor strength 5/ 5 bilateral LE ed naveen with chronic s kin changes Skin: no rashes, warm an d dry Neurologic: patellar DTR's 2+ bilat, sensation i ntact and PERRL, E ELOISE, accommodation nl, no face palsy , no dysarthria Psychiatric: A+Ox3, euthymic af fec Results & Data Results & Data ([facility]) Vital Signs (Past 12 Hours) Vital Signs Temp Pulse Pulse Pulse Resp BP Pulse Ox 05/25/22 08:00 05/25/22 07:39 92 H 05/25/22 07:35 36.4 C L 86 18 131/92 99 05/25/22 07:20 86 20 96 05/25/22 03:42 36.5 C 86 18 131/83 95 05/25/22 02:04 95 H 05/25/22 00:16 83 O2 Del Method O2 Flow Rate 05/25/22 08:00 Nasal Cannula 4 05/25/22 07:39 05/25/22 07:35 Nasal Cannula 4 05/25/22 07:20 Nasal Cannula 4 05/25/22 03:42 05/25/22 02:04 05/25/22 00:16 Laboratory Results Laboratory Results WBC 9.40 K/ul (4.8-10.8) 05/25/22 05:55 RBC 5.42 M/uL (4.63-6.08) 05/25/22 05:55 Hgb 14.0 g/dl (14.0-18.0) 05/25/22 05:55 Hct 43.7 % (40.1-51.0) 05/25/22 05:55 MCV 80.6 fL (80.0-100.0) 05/25/22 05:55 MCH 25.8 pg (25.0-34.0) 05/25/22 05:55 MCHC 32.0 g/dL (32.0-36.0) 05/25/22 05:55 RDW Std Deviation 55.6 fL (36.4-46.3) H 05/25/22 05:55 RDW Coeff of Megan 19.7 % (11.5-14.5) H 05/25/22 05:55 Plt Count 265 K/uL (130-400) 05/25/22 05:55 MPV 10.2 fL (9.4-12.4) 05/25/22 05:55 Immature Gran % (Auto) 0.5 % 05/23/22 06:09 Neut % (Auto) 74.0 % 05/23/22 06:09 Lymph % (Auto) 13.8 % 05/23/22 06:09 [place] % (Auto) 7.7 % 05/23/22 06:09 Eos % (Auto) 3.3 % 05/23/22 06:09 Baso % (Auto) 0.7 % 05/23/22 06:09 Neut # (Auto) 7.54 K/uL (1.4-6.5) H 05/23/22 06:09 Lymph # (Auto) 1.40 K/uL (1.2-3.4) 05/23/22 06:09 [place] # (Auto) 0.78 K/uL (0.24-0.82) 05/23/22 06:09 Eos # (Auto) 0.34 K/uL (0-0.50) 05/23/22 06:09 Baso # (Auto) 0.07 K/uL (0-0.2) 05/23/22 06:09 Immature Gran # (Auto) 0.05 K/uL (0.00-0.02) H 05/23/22 06:09 Polychromasia 1+ 05/23/22 06:09 Anisocytosis Present 05/22/22 07:14 PT 32.7 Seconds (9.0-12.0) H 05/25/22 05:55 INR 3.3 (0.9-1.1) H 05/25/22 05:55 Sodium 138 mmol/L (136-145) 05/25/22 05:55 Potassium 3.1 mmol/L (3.5-5.1) L 05/25/22 05:55 Chloride 85 mmol/L (98-107) L 05/25/22 05:55 Carbon Dioxide > 45 mmol/L (21-32) H* 05/25/22 05:55 Anion Gap TNP 05/25/22 05:55 BUN 15 mg/dl (6-23) 05/25/22 05:55 Creatinine 1.32 mg/dl (0.6-1.4) D 05/25/22 05:55 Est Cr Clr Drug Dosing 120.8 ml/min 05/25/22 05:55 Est GFR ( Amer) 71.9 ml/min 05/25/22 05:55 Est GFR (Non-Af Amer) 62.0 ml/min 05/25/22 05:55 BUN/Creatinine Ratio 11.4 (10-20) 05/25/22 05:55 Glucose 177 mg/dl (70-99(Fasting)) H 05/25/22 05:55 POC Glucose 235 mg/dl (70-99) H 05/25/22 11:40 Calcium 9.3 mg/dl (8.5-10.1) 05/25/22 05:55 Phosphorus 3.7 mg/dl (2.5-4.9) 05/23/22 06:09 Magnesium 2.0 mg/dl (1.7-2.4) 05/22/22 04:37 Total Bilirubin 0.6 mg/dl (0.2-1.0) 05/25/22 05:55 AST 14 U/L (13-39) 05/25/22 05:55 ALT 11 U/L (7-52) 05/25/22 05:55 Alkaline Phosphatase 96 U/L (34-104) 05/25/22 05:55 Troponin I High Sens 4.7 pg/ml (0-20) 05/21/22 22:36 B-Natriuretic Peptide 16 pg/ml (0-100) 05/21/22 22:36 Total Protein 7.1 gm/dl (6.0-8.3) 05/25/22 05:55 Albumin 3.9 gm/dl (3.4-5.0) 05/25/22 05:55 Globulin 3.2 gm/dl (2.5-4.0) 05/25/22 05:55 Albumin/Globulin Ratio 1.2 (0.9-2) 05/25/22 05:55 Lipase 16 U/L (11-82) 05/21/22 22:36 Urine Color Yellow 05/22/22 05:00 Urine Appearance Cloudy (Clear) A 05/22/22 05:00 Urine pH 6.0 (4.5-7.5) 05/22/22 05:00 Ur Specific [place] 1.022 (1.000-1.030) 05/22/22 05:00 Urine Protein Negative (Negative) 05/22/22 05:00 Urine Glucose (UA) Negative (Negative) 05/22/22 05:00 Urine Ketones Negative (Negative) 05/22/22 05:00 Urine Blood 1+ (Negative) H 05/22/22 05:00 Urine Nitrite Negative (Negative) 05/22/22 05:00 Urine Bilirubin Negative (Negative) 05/22/22 05:00 Urine Urobilinogen Negative (Negative) 05/22/22 05:00 Ur Leukocyte Esterase 2+ (Negative) H 05/22/22 05:00 Urine WBC (Auto) 10-30 /hpf (0-5) H 05/22/22 05:00 Urine RBC (Auto) 10-30 /hpf (0-4) H 05/22/22 05:00 U Hyaline Cast (Auto) 1-5 /lpf (0-5) 05/22/22 05:00 U Epithel Cells (Auto) >30 /lpf (0-5) H 05/22/22 05:00 Urine Bacteria (Auto) Negative (Negative) 05/22/22 05:00 SARS-CoV-2, RNA, NAAT NEGATIVE (NEGATIVE) 05/21/22 22:04 Impressions Chest X-Ray 05/21/22 21:45 XR chest 1V portable CLINICAL HISTORY: Atypical chest pain. Shortness of breath. COMPARISON STUDY: Chest radiograph April 15, 2022. FINDINGS: There is no pneumothorax. There are small bilateral pleural effusions. Cardiomegaly is unchanged. Pulmonary vascular congestion is similar to prior exam. There is possible left basilar opacity. IMPRESSION: 1. Cardiomegaly. Pulmonary vascular congestion, similar to prior exam. 2. Small bilateral pleural effusions. 3. Possible left basilar opacity. This is likely artifactual however consolidation could appear similar. ACT 112: Negative or not required by law. Electronically signed by: Evelio Corbin M.D. 05/22/2022 8:57 AM (1) Leukocytosis Leukocytosis type: unspecified Qualified Code(s): D72.829 - Elevated white blood cell count, unspecified
[2022-05-25] MEDS: ONDANSETRON INJ 2 MG/ML 2 ML VIAL IV PRN (12:57)
[2022-05-25 16:51] LABS: Base Excess ABG 24.4 mEq/L (-9-1.8); HCO3 ABG 52 mmol/L (19-24); Oxygen Saturation ABG 99.2 % (90-95); PCO2 ABG 67 mmHg (35-46); PO2 ABG 91 mmHg (80-95)
[2022-05-25 16:52] LABS: Allen Test POS (Pos)
[2022-05-26] MEDS: ALBUT/IPRATROP 3MG/0.5MG NEB 3 ML VIAL NEB SCH ×4 (00:21→19:21)
[2022-05-26] MEDS: ONDANSETRON INJ 2 MG/ML 2 ML VIAL IV PRN ×3 (03:37→23:02)
[2022-05-26] MEDS: PROMETHAZINE HCL 12.5 MG/10 ML UDP PO PRN ×3 (05:47→17:49)
[2022-05-26] MEDS: ACETAMINOPHEN 1000 MG/100 ML IV IV PRN ×3 (05:55→23:02)
[2022-05-26 06:25] LABS: Hemoglobin 13.8 g/dl (14.0-18.0); Mean Corpuscular Hgb Conc 32.1 g/dL (32.0-36.0); Mean Corpuscular Volume 81.1 fL (80.0-100.0); Mean Platelet Volume 10.4 fL (9.4-12.4); Platelet Count 256 K/uL (130-400); RDW Coefficient of Variation 19.3 % (11.5-14.5); RDW Standard Deviation 54.2 fL (36.4-46.3)
[2022-05-26 06:34] LABS: INR 2.1 (0.9-1.1); Prothrombin Time 21.7 Seconds (9.0-12.0)
[2022-05-26 07:15] LABS: Albumin Globulin Ratio 1.2 (0.9-2); Albumin Level 3.6 gm/dl (3.4-5.0); BUN Creatinine Ratio 17.9 (10-20); Bilirubin,Total 0.8 mg/dl (0.2-1.0); Calcium 9.2 mg/dl (8.5-10.1); Creatinine Clr Calc Pharmacy 137.3 ml/min; Est GFR (African American) 87.7 ml/min; Est GFR (Non-African American) 75.7 ml/min; Globulin 3.1 gm/dl (2.5-4.0); Total Protein 6.7 gm/dl (6.0-8.3)
[2022-05-26] MEDS: buprenorphine HCL 8 MG SUBL SL SCH ×3 (08:30→20:16)
[2022-05-26] MEDS: NICOTINE 14 MG/24 HR PATCH TD SCH (08:32)
[2022-05-26] MEDS: POTASSIUM CHLORIDE CRTAB 20 MEQ TABCR PO SCH ×3 (08:33→20:16)
[2022-05-26] MEDS: guaiFENesin 600 MG TABCR PO PRN ×2 (08:33→21:15)
[2022-05-26] MEDS: SENNA 8.6 MG TAB PO SCH (08:34)
[2022-05-26] MEDS: FAMOTIDINE 40 MG TABLET PO SCH (08:34)
[2022-05-26] MEDS: TAMSULOSIN HCL 0.4 MG CAP PO SCH (08:34)
[2022-05-26] MEDS: FERROUS SULFATE 325 MG TAB PO SCH (08:34)
[2022-05-26] MEDS: ASPIRIN 81 MG ECTAB PO SCH (08:34)
[2022-05-26] MEDS: DULoxetine HCL 60 MG CAP PO SCH (08:35)
[2022-05-26] MEDS: FOLIC ACID 1 MG TAB PO SCH (08:35)
[2022-05-26] MEDS: SPIRONOLACTONE 25 MG TAB PO SCH (08:35)
[2022-05-26] MEDS: FINASTERIDE 5 MG TAB PO SCH (08:35)
[2022-05-26] MEDS: ATORVASTATIN 40 MG TAB PO SCH (08:35)
[2022-05-26] MEDS: DOCUSATE SODIUM 100 MG CAP PO SCH ×2 (08:36→20:19)
[2022-05-26] MEDS: UMECLIDINIUM BROMIDE 62.5MCG/BLISTER 7 PUFFS/INHALER INH SCH (08:37)
[2022-05-26] MEDS: NYSTATIN POWDER 15GM BTL EXT SCH (08:37)
[2022-05-26] MEDS: FLUTICASONE/VILANTEROL 200/25MCG 14 PUFFS/INHALER INH SCH (08:37)
[2022-05-26] MEDS: FUROSEMIDE 40 MG/4 ML VIAL IV SCH ×2 (08:37→20:23)
[2022-05-26] MEDS: INSULIN ASPART PER UNIT SC SCH ×4 (08:39→20:20)
[2022-05-26] MEDS: LANTUS PER UNIT CHARGE SQ SCH ×2 (08:40→20:19)
--- NOTE | 2022-05-26 10:31 | Hospitalist Progress Note ---
Date of Service May 26, 2022 Assessment & Plan (1) Acute exacerbation of CHF (congestive heart failure): Plan: - reports 35lbs weight gain in 1 week prior to presentation. - LEs markedly swollen with tense skin, no pitting edema - TTE from 07/2021 with EF 60% -Repeat TTE this admission shows similar EF; grade 2 diastolic dysfunction Plan: -His weight continues to decrease; 196 kg today. Will continue on lasix 40mg iv twice daily. Doing well on current dosing of diuretics. BMP daily. Daily weights. - strict I/O - telemetry - continue other home medications (2) COPD exacerbation: Plan: - no consolidation on CXR but unchanged pleural effusion on left side -Occasional wheezing on chest examination - no indication for abx at this time - will give duoneb around the clock - continue home inhalers (3) Leukocytosis: Plan: - Resolved -Urine analysis shows 2 + leukocyte esterase. -Urine culture from 05/11 showed Enterococcus faecalis; -Urine culture this admissionnormal isabel. He received ceftriaxone and ampicillin prior to culture results. (4) History of pulmonary embolism: Plan: INR is supratherapeutic; his INR was around 8 when he came in. It was down trended to 2.1. He says he is on 5 mg Coumadin every day except for and Wednesday when he takes 2.5. The dose changes was done a month ago. I will start him on 2.5 once daily today and follow PT/INR while he is still in the hospital. He will follow-up with anticoagulation clinic as outpatient. (5) DM2 (diabetes mellitus, type 2): Plan: - recent A1c 7.4 03/2022 - started on glargine 30 Units twice daily. -POCT glucose in the range of 1 70-200 - SSI for now - AC+HS - diabetic diet (6) Morbid obesity: Plan: - noted -Counseled regarding weight loss (7) BPH (benign prostatic hyperplasia): Plan: - continue tamsulosin, finasteride -Unable to urinate by himself; Lloyd placed. (8) Urinary retention: Plan: Lloyd placed again for urinary retention. (9) Hypokalemia: Plan: His potassium is 3.0 today. Was placed on potassium chloride 40 meq twice daily yesterday. Plan to increase it to 40meq 3 times daily. Obtain daily BMP and magnesium. Plan DVT ppx: coumadin resumed on a lower dose of 2.5 mg once daily. Code Status: Full code Dispo: telemetry Admission and Anticipated Discharge Date Admission Date: May 22, 2022 Subjective Patient seen and examined at bedside. He is comfortably sitting up on the bed; not in any acute distress. Patient complained of increased sleepiness last evening. ABG was done which showed chronic respiratory acidosis with metabolic alkalosis. He was placed on BiPAP as needed and at night. Ativan was kept on hold and gabapentin was discontinued. This morning, patient feels she is much more awake. Telemetry shows sinus rhythm; no alarms overnight. Review of Systems Review of Systems: All systems reviewed & are unremarkable except as noted in Subjective Physical Exam Physical Exam: Constitutional:L WD/WN, vitals as a bairon + morbidly o bese; no acute dis tress Eyes: PERRL, conjunctiva e normal, anicteri c sclerae ENMT: external ear and n ose normal, oropha rynx normal Neck: trachea midline, n o thyromegaly + t hick neck Respiratory: normal respiratory effort and + coug h; no respiratory distress, no labor ed breathing and n ot tachypneic Aus cultation: + dimin ished lung sounds and occasional whe joan Cardiovascular:L RRR, no murmur, no edema Gastrointestinal ( Abdomen): normal bowel sound s, soft, nontender , no hepatosplenom egaly Musculoskeletal: no cyanosis or clu bbing, extremities motor strength 5/ 5. Bilateral ped al edema present; decreased from bef ore. Skin: no rashes, warm an d dry Neurologic: patellar DTR's 2+ bilat, sensation i ntact and PERRL, E ELOISE, accommodation nl, no face palsy , no dysarthria Psychiatric: A+Ox3, euthymic af fec Results & Data Results & Data ([facility]) Vital Signs (Past 12 Hours) Vital Signs Temp Pulse Pulse Resp BP Pulse Ox Pulse Ox 05/26/22 07:48 36.6 C 88 22 129/80 97 05/26/22 07:21 85 05/26/22 07:01 67 18 98 05/26/22 05:00 97 05/26/22 02:57 36.6 C 97 H 20 105/71 92 09/06/22 03:24 102 H 97 05/26/22 02:48 05/26/22 00:30 103 H 25 H 97 05/26/22 00:25 103 H 25 H 97 05/25/22 23:05 36.5 C 90 20 116/78 97 05/25/22 22:51 O2 Del Method O2 Del Method O2 Flow Rate O2 Flow Rate 05/26/22 07:48 4 05/26/22 07:21 05/26/22 07:01 Nasal Cannula 4 05/26/22 05:00 Nasal Cannula 4 05/26/22 02:57 Room Air 05/26/22 03:24 4 05/26/22 02:48 Nasal Cannula 4 05/26/22 00:30 BiPAP 4 05/26/22 00:25 4 05/25/22 23:05 Nasal Cannula 5 05/25/22 22:51 4 Laboratory Results Laboratory Results WBC 10.90 K/ul (4.8-10.8) H 05/26/22 05:43 RBC 5.30 M/uL (4.63-6.08) 05/26/22 05:43 Hgb 13.8 g/dl (14.0-18.0) L 05/26/22 05:43 Hct 43.0 % (40.1-51.0) 05/26/22 05:43 MCV 81.1 fL (80.0-100.0) 05/26/22 05:43 MCH 26.0 pg (25.0-34.0) 05/26/22 05:43 MCHC 32.1 g/dL (32.0-36.0) 05/26/22 05:43 RDW Std Deviation 54.2 fL (36.4-46.3) H 05/26/22 05:43 RDW Coeff of Megan 19.3 % (11.5-14.5) H 05/26/22 05:43 Plt Count 256 K/uL (130-400) 05/26/22 05:43 MPV 10.4 fL (9.4-12.4) 05/26/22 05:43 Immature Gran % (Auto) 0.5 % 05/23/22 06:09 Neut % (Auto) 74.0 % 05/23/22 06:09 Lymph % (Auto) 13.8 % 05/23/22 06:09 Cache % (Auto) 7.7 % 05/23/22 06:09 Eos % (Auto) 3.3 % 05/23/22 06:09 Baso % (Auto) 0.7 % 05/23/22 06:09 Neut # (Auto) 7.54 K/uL (1.4-6.5) H 05/23/22 06:09 Lymph # (Auto) 1.40 K/uL (1.2-3.4) 05/23/22 06:09 Cache # (Auto) 0.78 K/uL (0.24-0.82) 05/23/22 06:09 Eos # (Auto) 0.34 K/uL (0-0.50) 05/23/22 06:09 Baso # (Auto) 0.07 K/uL (0-0.2) 05/23/22 06:09 Immature Gran # (Auto) 0.05 K/uL (0.00-0.02) H 05/23/22 06:09 Polychromasia 1+ 05/23/22 06:09 Anisocytosis Present 05/22/22 07:14 PT 21.7 Seconds (9.0-12.0) H 05/26/22 05:43 INR 2.1 (0.9-1.1) H 05/26/22 05:43 ABG pH 7.50 (7.35-7.45) H 05/25/22 16:41 ABG pCO2 67 mmHg (35-46) H 05/25/22 16:41 ABG pO2 91 mmHg (80-95) 05/25/22 16:41 ABG HCO3 52 mmol/L (19-24) H 05/25/22 16:41 ABG O2 Saturation 99.2 % (90-95) H 05/25/22 16:41 ABG Base Excess 24.4 mEq/L (-9-1.8) H 05/25/22 16:41 Mariano Test POS (Pos) 05/25/22 16:41 Oxygen Given 4L O2 05/25/22 16:41 Sodium 136 mmol/L (136-145) 05/26/22 05:43 Potassium 3.0 mmol/L (3.5-5.1) L 05/26/22 05:43 Chloride 85 mmol/L (98-107) L 05/26/22 05:43 Carbon Dioxide 43 mmol/L (21-32) H* 05/26/22 05:43 Anion Gap 8 (3-11) 05/26/22 05:43 BUN 20 mg/dl (6-23) 05/26/22 05:43 Creatinine 1.12 mg/dl (0.6-1.4) 05/26/22 05:43 Est Cr Clr Drug Dosing 137.3 ml/min 05/26/22 05:43 Est GFR ( Amer) 87.7 ml/min 05/26/22 05:43 Est GFR (Non-Af Amer) 75.7 ml/min 05/26/22 05:43 BUN/Creatinine Ratio 17.9 (10-20) 05/26/22 05:43 Glucose 152 mg/dl (70-99(Fasting)) H 05/26/22 05:43 POC Glucose 179 mg/dl (70-99) H 05/26/22 07:35 Calcium 9.2 mg/dl (8.5-10.1) 05/26/22 05:43 Phosphorus 3.7 mg/dl (2.5-4.9) 05/23/22 06:09 Magnesium 2.0 mg/dl (1.7-2.4) 05/22/22 04:37 Total Bilirubin 0.8 mg/dl (0.2-1.0) 05/26/22 05:43 AST 15 U/L (13-39) 05/26/22 05:43 ALT 11 U/L (7-52) 05/26/22 05:43 Alkaline Phosphatase 91 U/L (34-104) 05/26/22 05:43 Troponin I High Sens 4.7 pg/ml (0-20) 05/21/22 22:36 B-Natriuretic Peptide 16 pg/ml (0-100) 05/21/22 22:36 Total Protein 6.7 gm/dl (6.0-8.3) 05/26/22 05:43 Albumin 3.6 gm/dl (3.4-5.0) 05/26/22 05:43 Globulin 3.1 gm/dl (2.5-4.0) 05/26/22 05:43 Albumin/Globulin Ratio 1.2 (0.9-2) 05/26/22 05:43 Lipase 16 U/L (11-82) 05/21/22 22:36 Urine Color Yellow 05/22/22 05:00 Urine Appearance Cloudy (Clear) A 05/22/22 05:00 Urine pH 6.0 (4.5-7.5) 05/22/22 05:00 Ur Specific [place] 1.022 (1.000-1.030) 05/22/22 05:00 Urine Protein Negative (Negative) 05/22/22 05:00 Urine Glucose (UA) Negative (Negative) 05/22/22 05:00 Urine Ketones Negative (Negative) 05/22/22 05:00 Urine Blood 1+ (Negative) H 05/22/22 05:00 Urine Nitrite Negative (Negative) 05/22/22 05:00 Urine Bilirubin Negative (Negative) 05/22/22 05:00 Urine Urobilinogen Negative (Negative) 05/22/22 05:00 Ur Leukocyte Esterase 2+ (Negative) H 05/22/22 05:00 Urine WBC (Auto) 10-30 /hpf (0-5) H 05/22/22 05:00 Urine RBC (Auto) 10-30 /hpf (0-4) H 05/22/22 05:00 U Hyaline Cast (Auto) 1-5 /lpf (0-5) 05/22/22 05:00 U Epithel Cells (Auto) >30 /lpf (0-5) H 05/22/22 05:00 Urine Bacteria (Auto) Negative (Negative) 05/22/22 05:00 SARS-CoV-2, RNA, NAAT NEGATIVE (NEGATIVE) 05/21/22 22:04 Impressions Chest X-Ray 05/21/22 21:45 XR chest 1V portable CLINICAL HISTORY: Atypical chest pain. Shortness of breath. COMPARISON STUDY: Chest radiograph April 15, 2022. FINDINGS: There is no pneumothorax. There are small bilateral pleural effusions. Cardiomegaly is unchanged. Pulmonary vascular congestion is similar to prior exam. There is possible left basilar opacity. IMPRESSION: 1. Cardiomegaly. Pulmonary vascular congestion, similar to prior exam. 2. Small bilateral pleural effusions. 3. Possible left basilar opacity. This is likely artifactual however consolidation could appear similar. ACT 112: Negative or not required by law. Electronically signed by: Evelio Corbin M.D. 05/22/2022 8:57 AM (1) Leukocytosis Leukocytosis type: unspecified Qualified Code(s): D72.829 - Elevated white blood cell count, unspecified
[2022-05-26] MEDS: CYCLOBENZAPRINE HCL 5 MG TAB PO PRN ×2 (12:12→21:16)
[2022-05-26] MEDS ORDERED: SOD PHOSPHATE/SOD BIPHOSPHATE ENEMA 132 ML BTL PR ONE (14:08)
[2022-05-26] MEDS: GABAPENTIN 800 MG TAB PO SCH ×2 (14:11→21:16)
[2022-05-26] MEDS: WARFARIN SOD 2.5 MG TAB PO SCH (16:29)
[2022-05-26] MEDS ORDERED: SODIUM CHLORIDE 0.65% NA SOLN 45 ML (OCEAN) PRN (17:56)
[2022-05-26] MEDS: POLYETHYLENE (MIRALAX) 17 GM PACK PO PRN (21:16)
[2022-05-27] MEDS: ALBUT/IPRATROP 3MG/0.5MG NEB 3 ML VIAL NEB SCH ×2 (00:05→06:53)
[2022-05-27] MEDS: PROMETHAZINE HCL 12.5 MG/10 ML UDP PO PRN ×2 (00:33→12:40)
[2022-05-27 06:20] LABS: Hematocrit (blood only) 42.6 % (40.1-51.0); Hemoglobin 13.7 g/dl (14.0-18.0); Mean Corpuscular Hemoglobin 26.2 pg (25.0-34.0); Mean Corpuscular Hgb Conc 32.2 g/dL (32.0-36.0); Mean Corpuscular Volume 81.5 fL (80.0-100.0); Mean Platelet Volume 10.1 fL (9.4-12.4); Platelet Count 242 K/uL (130-400); RDW Coefficient of Variation 19.1 % (11.5-14.5); RDW Standard Deviation 54.4 fL (36.4-46.3); Red Blood Count 5.23 M/uL (4.63-6.08); White Blood Count 12.49 K/ul (4.8-10.8)
[2022-05-27 06:22] LABS: INR 1.4 (0.9-1.1); Prothrombin Time 15.1 Seconds (9.0-12.0)
[2022-05-27 06:56] LABS: BUN Creatinine Ratio 18.3 (10-20); Calcium 9.2 mg/dl (8.5-10.1); Creatinine Clr Calc Pharmacy 141.3 ml/min; Est GFR (African American) 90.6 ml/min; Est GFR (Non-African American) 78.2 ml/min; Magnesium 1.8 mg/dl (1.7-2.4)
[2022-05-27] MEDS ORDERED: ALBUT/IPRATROP 3MG/0.5MG NEB 3 ML VIAL NEB PRN (08:33)
[2022-05-27] MEDS: NICOTINE 14 MG/24 HR PATCH TD SCH (09:35)
[2022-05-27] MEDS: buprenorphine HCL 8 MG SUBL SL SCH ×3 (09:35→20:32)
[2022-05-27] MEDS: FERROUS SULFATE 325 MG TAB PO SCH (09:38)
[2022-05-27] MEDS: CYCLOBENZAPRINE HCL 5 MG TAB PO PRN ×2 (09:38→21:23)
[2022-05-27] MEDS: ASPIRIN 81 MG ECTAB PO SCH (09:38)
[2022-05-27] MEDS: TAMSULOSIN HCL 0.4 MG CAP PO SCH (09:38)
[2022-05-27] MEDS: ATORVASTATIN 40 MG TAB PO SCH (09:38)
[2022-05-27] MEDS: DULoxetine HCL 60 MG CAP PO SCH (09:38)
[2022-05-27] MEDS: guaiFENesin 600 MG TABCR PO PRN ×2 (09:38→21:23)
[2022-05-27] MEDS: UMECLIDINIUM BROMIDE 62.5MCG/BLISTER 7 PUFFS/INHALER INH SCH (09:39)
[2022-05-27] MEDS: SPIRONOLACTONE 25 MG TAB PO SCH (09:39)
[2022-05-27] MEDS: FINASTERIDE 5 MG TAB PO SCH (09:39)
[2022-05-27] MEDS: FOLIC ACID 1 MG TAB PO SCH (09:39)
[2022-05-27] MEDS: FAMOTIDINE 40 MG TABLET PO SCH (09:39)
[2022-05-27] MEDS: SENNA 8.6 MG TAB PO SCH (09:39)
[2022-05-27] MEDS: NYSTATIN POWDER 15GM BTL EXT SCH (09:40)
[2022-05-27] MEDS: FLUTICASONE/VILANTEROL 200/25MCG 14 PUFFS/INHALER INH SCH (09:40)
[2022-05-27] MEDS: POTASSIUM CHLORIDE CRTAB 20 MEQ TABCR PO SCH ×3 (09:42→20:34)
[2022-05-27] MEDS: FUROSEMIDE 40 MG/4 ML VIAL IV SCH (09:42)
[2022-05-27] MEDS: ACETAMINOPHEN 500 MG TAB PO SCH ×3 (09:43→23:55)
[2022-05-27] MEDS: DOCUSATE SODIUM 100 MG CAP PO SCH ×2 (09:52→20:33)
[2022-05-27] MEDS: POLYETHYLENE (MIRALAX) 17 GM PACK PO PRN (09:52)
[2022-05-27] MEDS: POTASSIUM CHLORIDE / WTR 10 MEQ/100 ML PLCT IV SCH ×2 (09:53→10:46)
[2022-05-27] MEDS: INSULIN ASPART PER UNIT SC SCH ×4 (10:03→20:34)
[2022-05-27] MEDS: LANTUS PER UNIT CHARGE SQ SCH ×2 (10:04→20:35)
[2022-05-27] MEDS: GABAPENTIN 800 MG TAB PO SCH ×3 (10:47→20:33)
[2022-05-27] MEDS ORDERED: KETOROLAC TROMETHAMINE 15 MG/ML VIAL IV ONE (10:49)
--- NOTE | 2022-05-27 12:08 | Hospitalist Progress Note ---
Date of Service May 27, 2022 Assessment & Plan (1) Acute exacerbation of CHF (congestive heart failure): Plan: - reports 35lbs weight gain in 1 week prior to presentation. - LEs markedly swollen with tense skin, no pitting edema - Repeat TTE this admission shows preserved EF; grade 2 diastolic dysfunction -overall he has diuresed 25L net with >10lbs of weight loss. -breathing is improved and will plan to transition him back to his home lasix/potassium -close follow-up with cardiology/pcp within 7 days. (2) Hypokalemia: Plan: hypokalemia 2/2 diuretic use. Pt declined potassium supplementation this morning. (3) COPD (chronic obstructive pulmonary disease): Plan: chronic, stable. Active smoker in contemplative phase. Stop scheduled nebulizer treatments, intermittent scant wheezing is secondary smoking. No evidence of exacerbation at this time. Cont home oxygen. (4) Urinary retention: Plan: Acute urinary retention in the last couple of months with indwelling fontaine at home. Patient removed this by himself. Urology was consulted and said that since he was up and ambulating to the bathroom without issues and able to void spontaneously, he didn't need the fontaine in place. However, later that day the patient declined diuretics unless he received the catheter back again so this was replaced for his comfort. Removing now and ensure spontaneous void prior to dc. (5) Leukocytosis: Plan: - Resolved -Urine analysis shows 2 + leukocyte esterase. -Urine culture from 05/11 showed Enterococcus faecalis; -Urine culture this admissionnormal isabel. He received ceftriaxone and ampicillin prior to culture results. (6) History of pulmonary embolism: Plan: INR is supratherapeutic o 8.8 on admission. It is now 1.4 and his warfarin dose was reduced from 5mg PO daily to 2.5 mg daily. Follow-up with outpatient AC clinic shortly after discharge. (7) DM2 (diabetes mellitus, type 2): Plan: - recent A1c 7.4 03/2022 - started on glargine 30 Units twice daily. -POCT glucose in the range of 1 70-200 - SSI for now - AC+HS - diabetic diet (8) Morbid obesity: Plan: - noted -Counseled regarding weight loss (9) BPH (benign prostatic hyperplasia): Plan: - continue tamsulosin, finasteride -Unable to urinate by himself; Fontaine placed. (10) Smoking: Plan: Encouraged to quit, unwilling at this time. (11) DVT prophylaxis: Plan: INR subtherapeutic on warfarin temporarily. Hold on any chemoprophy given toradol and consideration for BREWER inhibitor. SCDs/ambulation Dispo- to home later today. Mala Grace [facility] and Anticipated Discharge Date Admission Date: May 22, 2022 Subjective Patient seen and examined at bedside. He is comfortably sitting up on the bed; not in any acute distress. CC: "I feel terrible." Reports congestion and malaise, we discussed consideration of exposure to someone with covid and decided to test him again. He reports feeling improved from a breathing standpoint after losing >10 lbs this admission in water weight. Potassium was 3.0 and he declined IV supplementation this morning. He is upset with me that I switched his intravenous Tylenol to PO form. I explained the P&T policy on this. He is reporting pain with standing and inability to walk on his right knee without pain This has been going on for several weeks per his report. We discussed options of this including short course NSAIDs and ice whichh would be preferred over prednisone or narcotics given his diabetes, h/o drug-seeking behavior, respectively. One dose Toradol IV given now. Discussed with nurse that we will see if nurse or PT can successfully evaluate his safety to return home today with his knee pain Discussed outpatient options with him including ortho follow-up for steroid injections and/or PT/OT Patient verbalized understanding of all of above. Then said he wasn't sure he could get a ride today Then mentioned he was still needing oxygen during the day which is not his current prescription. Confirmed with case management that his prescription for oxygen is 2LPM at night and PRN during the day with ambulation. Notably he is a 1.5 PPD cigarette smoker with morbid obesity and a long history of noncompliance. 2 step test was ordered and will plan to set him up with a ride later this afternoon with his barring any issues from PT standpoint. Review of Systems Review of Systems: All systems were reviewed and negative except as indicated above. Physical Exam Physical Exam: CONSTITUTIONAL: obese, vitals as above, generally well- appearing, NAD EYES: normal conjunctivae, no scleral icterus ENT: external ear and nose normal, MMM NECK: trachea midline, RESPIRATORY: clear to auscultation bilaterally, no crackles, rales or wheezes, normal respiratory effort CARDIOVASCULAR: regular rate and rhythm, S1 and 2 heard without murmurs, gallops or rubs, no JVD, no peripheral edema, CHEST: inspection of chest was normal GASTROINTESTINAL: soft, obesity limits exam, nontender, ND, no guarding MUSCULOSKELETAL: strength 5/5 throughout, full range of motion of the right kne e was demonstrated without pain or limitation, there is increased warmth to the right knee when compared to the left without joint effusion, swelling or erythema. head is normocephalic and atraumatic, neck supple, normal palpation of chest wall without tenderness SKIN: warm and dry, multiple scratch wounds all over his skin NEUROLOGIC: CN 2-12 grossly intact, no sensory deficit, normal cognition, normal speech, no tremor PSYCHIATRIC: alert cooperative and oriented to person, place and time. Results & Data Results & Data ([facility]) Vital Signs (Past 12 Hours) Vital Signs Temp Pulse Resp BP Pulse Ox O2 Del Method O2 Flow Rate 05/27/22 11:44 36.8 C 105 H 20 121/85 94 2 05/27/22 07:51 36.5 C 92 H 20 147/87 H 95 2 05/27/22 06:53 72 16 98 Nasal Cannula 4 05/27/22 03:23 36.6 C 92 H 20 110/76 96 Nasal Cannula 4 05/27/22 02:27 Nasal Cannula 4 05/27/22 00:06 89 16 98 Nasal Cannula 4 Laboratory Results Short CBC 05/27/22 Range/Units 05:37 WBC 12.49 H (4.8-10.8) K/ul Hgb 13.7 L (14.0-18.0) g/dl Hct 42.6 (40.1-51.0) % Plt Count 242 (130-400) K/uL BMP 05/27/22 05:37 Sodium 134 L Potassium 3.0 L Chloride 87 L Carbon Dioxide 41 H* BUN 20 Creatinine 1.09 Glucose 216 H Calcium 9.2 Medications Administered Current Inpatient Medications Acetaminophen (Acetaminophen 500 Mg Tab) 1,000 mg PO Q8H EMPERATRIZ Stop: 06/26/22 08:44 Last Admin: 05/27/22 09:43 Dose: Not Given Albuterol (Albut/Ipratrop 3mg/0.5mg Neb 3 Ml Vial) 3 ml NEB Q6R PRN; Protocol PRN Reason: SOB/wheezing Stop: 06/21/22 12:59 Aspirin (Aspirin 81 Mg Ectab) 81 mg PO QAM [facility] Stop: 06/21/22 08:59 Last Admin: 05/27/22 09:38 Dose: 81 mg Atorvastatin Calcium (Atorvastatin 40 Mg Tab) 80 mg PO QAM [facility]MPERATRIZ Stop: 06/21/22 08:59 Last Admin: 05/27/22 09:38 Dose: 80 mg Buprenorphine HCl (Buprenorphine Hcl 8 Mg Subl) 8 mg SL TID EMPERATRIZ Stop: 06/23/22 08:59 Last Admin: 05/27/22 09:35 Dose: 8 mg Cyclobenzaprine HCl (Cyclobenzaprine Hcl 5 Mg Tab) 5 mg PO TID PRN PRN Reason: Pain Stop: 06/21/22 13:59 Last Admin: 05/27/22 09:38 Dose: 5 mg Dextrose (Dextrose 50% 50 Ml Syringe) 25 - 50 ml IV UD PRN; Protocol PRN Reason: Hypoglycemia Protocol Stop: 06/21/22 09:23 Docusate Sodium (Docusate Sodium 100 Mg Cap) 100 mg PO BID EMPERATRIZ Stop: 06/21/22 08:59 Last Admin: 05/27/22 09:52 Dose: 100 mg Duloxetine HCl (Duloxetine Hcl 60 Mg Cap) 60 mg PO QAM [facility] Stop: 06/21/22 08:59 Last Admin: 05/27/22 09:38 Dose: 60 mg Famotidine (Famotidine 40 Mg Tablet) 40 mg PO QAM [facility] Stop: 06/21/22 08:59 Last Admin: 05/27/22 09:39 Dose: 40 mg Ferrous Sulfate (Ferrous Sulfate 325 Mg Tab) 325 mg PO QAM [facility] Stop: 06/21/22 08:59 Last Admin: 05/27/22 09:38 Dose: 325 mg Finasteride (Finasteride 5 Mg Tab) 5 mg PO QAM [facility] Stop: 06/21/22 08:59 Last Admin: 05/27/22 09:39 Dose: 5 mg Fluticasone/Vilanterol (Fluticasone/Vilanterol 200/25mcg 14 Puffs/Inhaler) 1 puffs INH DAILY EMPERATRIZ Stop: 06/21/22 08:59 Last Admin: 05/27/22 09:40 Dose: 1 puffs Folic Acid (Folic Acid 1 Mg Tab) 1 mg PO QAM [facility] Stop: 06/21/22 08:59 Last Admin: 05/27/22 09:39 Dose: 1 mg Furosemide (Furosemide 40 Mg/4 Ml Vial) 40 mg IV BID EMPERATRIZ Stop: 06/21/22 20:59 Last Admin: 05/27/22 09:42 Dose: 40 mg Gabapentin (Gabapentin 800 Mg Tab) 800 mg PO TID EMPERATRIZ Stop: 06/21/22 08:59 Last Admin: 05/27/22 10:47 Dose: 800 mg Glucagon (Glucagon For Inj 1 Mg Vial) 1 mg SQ UD PRN; Protocol PRN Reason: Hypoglycemia Protocol Stop: 06/21/22 09:23 Glucose (Glucose 40% Gel 15 Gm Tube) 15 - 30 gm PO UD PRN; Protocol PRN Reason: Hypoglycemia Protocol Stop: 06/21/22 09:23 Glucose (Glucose 10 Tab/Tube) 4 - 8 tab PO UD PRN; Protocol PRN Reason: Hypoglycemia Treatment Stop: 06/21/22 09:23 Guaifenesin (Guaifenesin 600 Mg Tabcr) 600 mg PO Q12 PRN PRN Reason: cough Stop: 06/23/22 08:59 Last Admin: 05/27/22 09:38 Dose: 600 mg Insulin Aspart (Insulin Aspart Per Unit) 0 units SC ACHS [facility]ATRI[facility] Stop: 06/21/22 11:29 Last Admin: 05/27/22 10:03 Dose: 14 units Insulin Glargine (Lantus Per Unit Charge) 33 units SQ BID EMPERATRIZ Stop: 06/26/22 08:59 Last Admin: 05/27/22 10:04 Dose: 33 units Miscellaneous (Carbohydrates For Hypoglycemia ) 15 - 30 gm PO UD PRN PRN Reason: Hypoglycemia Protocol Stop: 06/21/22 09:23 Miscellaneous (Remove Nicoderm Patch) 1 each N/A DAILY@0859 EMPERATRIZ Stop: 06/22/22 08:58 Last Admin: 05/27/22 09:42 Dose: 1 each Nicotine (Nicotine 14 Mg/24 Hr Patch) 14 mg TD QAM [facility] Stop: 06/21/22 11:29 Last Admin: 05/27/22 09:35 Dose: 14 mg Nystatin (Nystatin Powder 15gm Btl) 1 appln EXT DAILY [facility] Stop: 06/21/22 18:14 Last Admin: 05/27/22 09:40 Dose: 1 appln Ondansetron HCl (Ondansetron Inj 2 Mg/Ml 2 Ml Vial) 4 mg IV Q6H PRN PRN Reason: Nausea And Vomiting Stop: 06/24/22 12:29 Last Admin: 05/26/22 23:02 Dose: 4 mg Polyethylene Glycol (Polyethylene (Miralax) 17 Gm Pack) 17 gm PO DAILY PRN PRN Reason: Constipation Stop: 06/21/22 00:36 Last Admin: 05/27/22 09:52 Dose: 17 gm Potassium Chloride (Potassium Chloride Crtab 20 Meq Tabcr) 40 meq PO TID [facility] Stop: 06/25/22 13:59 Last Admin: 05/27/22 09:42 Dose: 40 meq Promethazine HCl (Promethazine Hcl 12.5 Mg/10 Ml Udp) 12.5 mg PO Q6H PRN PRN Reason: Nausea And Vomiting Stop: 06/23/22 08:34 Last Admin: 05/27/22 00:33 Dose: 12.5 mg Sennosides (Senna 8.6 Mg Tab) 8.6 mg PO QAM [facility] Stop: 06/21/22 08:59 Last Admin: 05/27/22 09:39 Dose: 8.6 mg Sodium Chloride (Sodium Chloride 0.65% Na Soln 45 Ml ([place])) 2 sprays NA UD PRN PRN Reason: Dryness Stop: 06/25/22 17:55 Last Admin: 05/26/22 18:32 Dose: 2 sprays Spironolactone (Spironolactone 25 Mg Tab) 25 mg PO QAM [facility] Stop: 06/21/22 08:59 Last Admin: 05/27/22 09:39 Dose: 25 mg Tamsulosin HCl (Tamsulosin Hcl 0.4 Mg Cap) 0.4 mg PO QAM [facility] Stop: 06/21/22 08:59 Last Admin: 05/27/22 09:38 Dose: 0.4 mg Umeclidinium [place] (Umeclidinium [place] 62.5mcg/Blister 7 Puffs/Inhaler) 1 puffs INH QAM [facility] Stop: 06/21/22 08:59 Last Admin: 05/27/22 09:39 Dose: 1 puffs Warfarin Sodium (Warfarin Sod 2.5 Mg Tab) 2.5 mg PO DAILY@1600 [facility] Stop: 06/25/22 15:59 Last Admin: 05/26/22 16:29 Dose: 2.5 mg (1) Leukocytosis Leukocytosis type: unspecified Qualified Code(s): D72.829 - Elevated white blood cell count, unspecified
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
[2022-05-27] MEDS: ONDANSETRON INJ 2 MG/ML 2 ML VIAL IV PRN (14:41)
[2022-05-27] MEDS ORDERED: FUROSEMIDE 20 MG TAB PO SCH (17:00)
[2022-05-27] MEDS: WARFARIN SOD 2.5 MG TAB PO SCH (17:45)
[2022-05-27] MEDS: CELECOXIB 100 MG CAP PO SCH (20:33)
[2022-05-28 06:42] LABS: Hematocrit (blood only) 41.8 % (40.1-51.0); Hemoglobin 13.5 g/dl (14.0-18.0); Mean Corpuscular Hgb Conc 32.3 g/dL (32.0-36.0); Mean Corpuscular Volume 80.5 fL (80.0-100.0); Mean Platelet Volume 10.1 fL (9.4-12.4); Platelet Count 235 K/uL (130-400); RDW Coefficient of Variation 19.2 % (11.5-14.5); RDW Standard Deviation 54.8 fL (36.4-46.3); Red Blood Count 5.19 M/uL (4.63-6.08); White Blood Count 12.08 K/ul (4.8-10.8)
[2022-05-28 07:21] LABS: BUN Creatinine Ratio 22.2 (10-20); Calcium 9.5 mg/dl (8.5-10.1); Creatinine Clr Calc Pharmacy 146.5 ml/min; Est GFR (African American) 91.6 ml/min; Magnesium 1.9 mg/dl (1.7-2.4); Potassium 3.4 mmol/L (3.5-5.1)
[2022-05-28 07:25] LABS: INR 1.3 (0.9-1.1); Prothrombin Time 13.5 Seconds (9.0-12.0)
[2022-05-28] MEDS: GABAPENTIN 800 MG TAB PO SCH (08:34)
[2022-05-28] MEDS: POTASSIUM CHLORIDE CRTAB 20 MEQ TABCR PO SCH (08:34)
[2022-05-28] MEDS: CELECOXIB 100 MG CAP PO SCH (08:34)
[2022-05-28] MEDS: CYCLOBENZAPRINE HCL 5 MG TAB PO PRN (08:34)
[2022-05-28] MEDS: guaiFENesin 600 MG TABCR PO PRN (08:34)
[2022-05-28] MEDS: ACETAMINOPHEN 500 MG TAB PO SCH (08:35)
[2022-05-28] MEDS: SENNA 8.6 MG TAB PO SCH (08:35)
[2022-05-28] MEDS: SPIRONOLACTONE 25 MG TAB PO SCH (08:35)
[2022-05-28] MEDS: TAMSULOSIN HCL 0.4 MG CAP PO SCH (08:35)
[2022-05-28] MEDS: FOLIC ACID 1 MG TAB PO SCH (08:36)
[2022-05-28] MEDS: NICOTINE 14 MG/24 HR PATCH TD SCH (08:36)
[2022-05-28] MEDS: FAMOTIDINE 40 MG TABLET PO SCH (08:36)
[2022-05-28] MEDS: FERROUS SULFATE 325 MG TAB PO SCH (08:36)
[2022-05-28] MEDS: DULoxetine HCL 60 MG CAP PO SCH (08:36)
[2022-05-28] MEDS: FINASTERIDE 5 MG TAB PO SCH (08:36)
[2022-05-28] MEDS: ATORVASTATIN 40 MG TAB PO SCH (08:36)
[2022-05-28] MEDS: NYSTATIN POWDER 15GM BTL EXT SCH (08:37)
[2022-05-28] MEDS: FLUTICASONE/VILANTEROL 200/25MCG 14 PUFFS/INHALER INH SCH (08:37)
[2022-05-28] MEDS: UMECLIDINIUM BROMIDE 62.5MCG/BLISTER 7 PUFFS/INHALER INH SCH (08:37)
[2022-05-28] MEDS: DOCUSATE SODIUM 100 MG CAP PO SCH (08:42)
[2022-05-28] MEDS: LANTUS PER UNIT CHARGE SQ SCH (08:42)
[2022-05-28] MEDS: INSULIN ASPART PER UNIT SC SCH ×2 (08:42→12:01)
[2022-05-28] MEDS: buprenorphine HCL 8 MG SUBL SL SCH (08:42)
[2022-05-28] MEDS ORDERED: FUROSEMIDE 40 MG TAB PO SCH (09:00)
[2022-05-28] MEDS: PROMETHAZINE HCL 12.5 MG/10 ML UDP PO PRN (09:47)
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
[2022-05-28] MEDS ORDERED: WARFARIN SOD 5 MG TAB PO SCH (16:00)
== END 2022-05-28 13:10 | disposition home or self-care (01) | DRG 291 ==
LOC: ED 20:42 → EDINP 05-22 00:37 → SUATTDRO 05-22 00:37 → 2N 05-22 15:23

== ENCOUNTER 2022-07-29 12:51 | Inpatient (IN) ==
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
[2022-07-29 13:29] LABS: Basophils # (auto) 0.04 K/uL (0-0.2); Basophils % (auto) 0.4 %; Eosinophils # (auto) 0.55 K/uL (0-0.50); Eosinophils % (auto) 5.4 %; Hematocrit (blood only) 46.3 % (40.1-51.0); Hemoglobin 15.2 g/dl (14.0-18.0); Immature Granulocytes # (auto) 0.05 K/uL (0.00-0.02); Immature Granulocytes % (auto) 0.5 %; Lymphocytes # (auto) 2.25 K/uL (1.2-3.4); Lymphocytes % (auto) 22.3 %; Mean Corpuscular Hemoglobin 27.8 pg (25.0-34.0); Mean Corpuscular Hgb Conc 32.8 g/dL (32.0-36.0); Mean Corpuscular Volume 84.6 fL (80.0-100.0); Monocytes # (auto) 0.52 K/uL (0.24-0.82); Monocytes % (auto) 5.1 %; Neutrophils # (auto) 6.69 K/uL (1.4-6.5); Neutrophils % (auto) 66.3 %; Platelet Count 250 K/uL (130-400); RDW Coefficient of Variation 18.1 % (11.5-14.5); RDW Standard Deviation 54.5 fL (36.4-46.3); Red Blood Count 5.47 M/uL (4.63-6.08)
[2022-07-29 13:51] LABS: Albumin Globulin Ratio 0.9 (0.9-2); Albumin Level 3.5 gm/dl (3.4-5.0); BUN Creatinine Ratio 9.2 (10-20); Bilirubin,Total 0.6 mg/dl (0.2-1.0); Calcium 8.9 mg/dl (8.5-10.1); Creatinine Clr Calc Pharmacy 157.8 ml/min; Est GFR (African American) 102.3 ml/min; Est GFR (Non-African American) 88.3 ml/min; Globulin 3.7 gm/dl (2.5-4.0); Potassium 3.7 mmol/L (3.5-5.1); Total Protein 7.2 gm/dl (6.0-8.3)
[2022-07-29 13:56] LABS: Troponin I High Sensitivity 3.8 pg/ml (0-20)
[2022-07-29 13:59] LABS: Partial Thromboplastin Ratio 2.7; Prothrombin Time 56.4 Seconds (9.0-12.0)
--- NOTE | 2022-07-29 14:00 | XRay Report ---
XR chest 1V portable HISTORY: Atypical Chest Pain COMPARISON: Chest 05/21/2022. FINDINGS: No pneumothorax. Stable blunting of the costophrenic sulci. No new focal lung consolidation s identified to suggest a pneumonia. No evidence for pulmonary edema. Mild interstitial thickening pe rsists. The heart remains mildly enlarged. IMPRESSION: No change in the cardiomegaly and mild interstitial thickening. ACT 112: Negative or not required by law. Electronically signed by: Vidal Keller M.D. 07/29/2022 1:59 PM
[2022-07-29 14:07] LABS: INR 5.8 (0.9-1.1); Partial Thromboplastin Time 74.2 Seconds (21.0-31.0)
[2022-07-29] MEDS ORDERED: FUROSEMIDE 40 MG/4 ML VIAL IV ONE (14:49)
[2022-07-29] MEDS ORDERED: ONDANSETRON INJ 2 MG/ML 2 ML VIAL IV STA (14:49)
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
[2022-07-29] MEDS ORDERED: SENNA 8.6 MG TAB PO PRN (16:54)
[2022-07-29] MEDS ORDERED: GLUCOSE 10 TAB/TUBE PO PRN (16:54)
[2022-07-29] MEDS ORDERED: CARBOHYDRATES FOR HYPOGLYCEMIA PO PRN (16:54)
[2022-07-29] MEDS ORDERED: GLUCAGON FOR INJ 1 MG VIAL SQ PRN (16:54)
[2022-07-29] MEDS ORDERED: ACETAMINOPHEN 325 MG TAB PO PRN (16:54)
[2022-07-29] MEDS ORDERED: GLUCOSE 40% GEL 15 GM TUBE PO PRN (16:54)
[2022-07-29] MEDS ORDERED: DEXTROSE 50% 50 ML SYRINGE IV PRN (16:54)
--- NOTE | 2022-07-29 16:57 | Electrocardiogram Report ---
Test Reason : Blood Pressure : / mmHG Vent. Rate : 080 BPM Atrial Rate : 080 BPM P-R Int : 154 ms QRS Dur : 098 ms QT Int : 384 ms P-R-T Axes : 096 041 045 degrees QTc Int : 442 ms Poor data quality, interpretation may be adversely affected Normal sinus rhythm Nonspecific ST abnormality Abnormal ECG When compared with ECG of 21-MAY-2022 21:05, No significant change was found Confirmed by Stanton Porter [id number]) on 07/29/2022 4:56:43 PM Referred By: REFERRED SELF Confirmed By:Stanton Porter
[2022-07-29] MEDS: ACETAMINOPHEN 1,000 MG/100 ML VIAL IV PRN (17:50)
[2022-07-29] MEDS: ALBUT/IPRATROP 3MG/0.5MG NEB 3 ML VIAL NEB SCH (18:57)
[2022-07-29] MEDS: NICOTINE 21 MG/24 HR TDSY TD SCH (19:18)
[2022-07-29] MEDS: guaiFENesin 600 MG TABCR PO SCH (21:42)
[2022-07-29] MEDS: GABAPENTIN 800 MG TAB PO SCH (21:42)
[2022-07-29] MEDS: POTASSIUM CHLORIDE CRTAB 20 MEQ TABCR PO SCH (21:43)
[2022-07-29] MEDS: FUROSEMIDE 40 MG/4 ML VIAL IV SCH (21:43)
[2022-07-29] MEDS: METOPROLOL SUCC 25MG EXT REL TAB PO SCH (21:43)
[2022-07-29] MEDS: DOCUSATE SODIUM 100 MG CAP PO SCH (21:44)
[2022-07-29] MEDS: INSULIN ASPART PER UNIT SC SCH (21:59)
[2022-07-29] MEDS: buprenorphine HCL 8 MG SUBL SL SCH (21:59)
[2022-07-29] MEDS: LANTUS PER UNIT CHARGE SQ SCH (21:59)
[2022-07-29] MEDS: BENZONATATE 100 MG CAPSULE PO PRN (23:58)
[2022-07-29] MEDS: LORazepam 0.5 MG TAB PO PRN (23:58)
[2022-07-29] MEDS: ONDANSETRON INJ 2 MG/ML 2 ML VIAL IV PRN (23:59)
[2022-07-30 02:14] LABS: Hematocrit (blood only) 43.7 % (40.1-51.0); Hemoglobin 14.1 g/dl (14.0-18.0); Mean Corpuscular Hemoglobin 27.5 pg (25.0-34.0); Mean Corpuscular Hgb Conc 32.3 g/dL (32.0-36.0); Mean Corpuscular Volume 85.2 fL (80.0-100.0); Mean Platelet Volume 10.1 fL (9.4-12.4); Platelet Count 242 K/uL (130-400); RDW Standard Deviation 55.3 fL (36.4-46.3); Red Blood Count 5.13 M/uL (4.63-6.08); White Blood Count 8.75 K/ul (4.8-10.8)
[2022-07-30 02:38] LABS: BUN Creatinine Ratio 9.7 (10-20); Calcium 8.3 mg/dl (8.5-10.1); Creatinine Clr Calc Pharmacy 166.3 ml/min; Est GFR (Non-African American) 94.1 ml/min; Potassium 3.6 mmol/L (3.5-5.1)
[2022-07-30 02:43] LABS: INR 4.6 (0.9-1.1); Prothrombin Time 45.4 Seconds (9.0-12.0)
[2022-07-30] MEDS: ACETAMINOPHEN 1,000 MG/100 ML VIAL IV PRN ×3 (03:03→19:45)
[2022-07-30] MEDS: PANTOprazole 40 MG TAB PO SCH (06:33)
[2022-07-30] MEDS: ALBUT/IPRATROP 3MG/0.5MG NEB 3 ML VIAL NEB SCH ×4 (07:11→19:40)
[2022-07-30 07:40] LABS: Estimated Average Glucose 197 mg/dl; Hemoglobin A1C 8.5 % (4.5-5.6)
[2022-07-30] MEDS: INSULIN ASPART PER UNIT SC SCH ×4 (08:54→20:07)
[2022-07-30] MEDS: LANTUS PER UNIT CHARGE SQ SCH ×2 (08:55→20:08)
[2022-07-30] MEDS: FERROUS SULFATE 325 MG TAB PO SCH (08:56)
[2022-07-30] MEDS: ASPIRIN 81 MG ECTAB PO SCH (08:59)
[2022-07-30] MEDS: FAMOTIDINE 20 MG TAB PO SCH (09:00)
[2022-07-30] MEDS: DULoxetine HCL 60 MG CAP PO SCH (09:00)
[2022-07-30] MEDS: DOCUSATE SODIUM 100 MG CAP PO SCH ×2 (09:00→19:53)
[2022-07-30] MEDS: FINASTERIDE 5 MG TAB PO SCH (09:01)
[2022-07-30] MEDS: FLUTICASONE PROPIONATE NA SPR 16 GM BTL NAE SCH (09:01)
[2022-07-30] MEDS: FOLIC ACID 1 MG TAB PO SCH (09:02)
[2022-07-30] MEDS: FUROSEMIDE 40 MG/4 ML VIAL IV SCH ×2 (09:02→17:14)
[2022-07-30] MEDS: guaiFENesin 600 MG TABCR PO SCH ×2 (09:03→19:53)
[2022-07-30] MEDS: GABAPENTIN 800 MG TAB PO SCH ×3 (09:03→19:54)
[2022-07-30] MEDS: ISOSORBIDE DINITRATE 20 MG TAB PO SCH (09:04)
[2022-07-30] MEDS: MAGNESIUM OXIDE 400 MG TAB PO SCH (09:04)
[2022-07-30] MEDS: ISOSORBIDE DINITRATE 10 MG TAB PO SCH (09:04)
[2022-07-30] MEDS: METOPROLOL SUCC 25MG EXT REL TAB PO SCH ×3 (09:05→19:58)
[2022-07-30] MEDS: NICOTINE 21 MG/24 HR TDSY TD SCH (09:05)
[2022-07-30] MEDS: SPIRONOLACTONE 25 MG TAB PO SCH (09:06)
[2022-07-30] MEDS: POLYETHYLENE (MIRALAX) 17 GM PACK PO SCH (09:06)
[2022-07-30] MEDS: POTASSIUM CHLORIDE CRTAB 20 MEQ TABCR PO SCH ×2 (09:06→19:53)
[2022-07-30] MEDS: TAMSULOSIN HCL 0.4 MG CAP PO SCH (09:07)
[2022-07-30] MEDS: LORazepam 0.5 MG TAB PO PRN ×2 (09:17→20:09)
[2022-07-30] MEDS: buprenorphine HCL 8 MG SUBL SL SCH ×3 (09:23→20:09)
[2022-07-30] MEDS ORDERED: HYDROmorphone INJ 0.5 MG/0.5 ML SYR IV ONE (12:18)
[2022-07-30] MEDS ORDERED: LIDOCAINE 2% JELLY 5 ML TUBE EXT PRN (13:31)
--- NOTE | 2022-07-30 13:33 | Hospitalist Progress Note ---
Date of Service July 30, 2022 Assessment & Plan (1) Chest pain: Plan: History CAD Patient is 52 y/o M with PMH DM II, HTN, H/O PE, on Coumadin, diastolic CHF, chronic back pain, COPD, urinary retention with chronic Lloyd, depression, anxiety, h/o subdural hematoma, SAH, STEMI, history of recurrent hospitalizations presented to ER with c/o chest pain since yesterday not relieved with nitro In ER vitals stable. EKG without acute ST elevation. Initial high-sensitivity troponin: 3.8 Likely atypical chest pain History Echo 05/22/2022: EF: 60-65%, no wall motion abnormality, grade 2 diastolic dysfunction Will hold on additional echo currently Trend troponin Continue aspirin, atorvastatin, metoprolol, isosorbide If troponins uptrending consider cardiology consult No more chest pain and her troponins are unremarkable for any ACS (2) Acute on chronic diastolic (congestive) heart failure: Plan: Reports 30 pound weight gain and bilateral lower extremity edema x2 weeks BNP: 32 In ER given Lasix 40 mg IV Hold home Lasix and convert to IV Continue spironolactone Monitor I's and O's, daily weight, low-sodium diet, fluid restriction Has been diuresing enough and so far negative balance is more than 2 L We will continue diuresing BPH History urinary retention Chronic Lloyd Catheter Bladder scan as needed Continue tamsulosin, finasteride Lloyd catheter has not been changed for a long time-urine is very dirty Will insert new Lloyd and send urine for UA and culture if needed History PE Supratherapeutic INR On chronic Coumadin INR: 5.8 Hold Coumadin INR in a.m.-improved to's 4.6 We will check again tomorrow COPD (chronic obstructive pulmonary disease): Chronic wheezing Recently treated outpatient with Augmentin and prednisone course for reported productive cough. Patient reports decreased cough since treatment Will hold on further antibiotics and steroids at this time Uses 4 L oxygen at bedtime Scheduled Duonebs Continue home inhalers Minimal wheezing due to combination of COPD and CHF-has been improving History obesity hypoventilation syndrome Uses 4 L oxygen at bedtime and as needed DM type 2 (diabetes mellitus, type 2): A1c: 7.4 on 04/08/2022 Hold home meds Basal bolus insulin per protocol Chronic pain: Continue gabapentin, buprenorphine Morbid obesity: BMI: 59.8 Lifestyle modifications recommended DVT Prophylaxis On Coumadin. INR: Currently supratherapeutic Follows with Dr Askew for routine care Admission and Anticipated Discharge Date Admission Date: July 29, 2022 Subjective 07/30/2022 The patient was seen and examined in medical telemetry unit He has been feeling better since admission Denies any significant symptoms, no more chest pain, no fever and or chills and no problem with urine Review of Systems Review of Systems: All systems reviewed and are unremarkable except as noted below Respiratory: No shortness of breath at rest and wheezing has been improved Physical Exam Physical Exam: Lying in bed comfortably Constitutional: well developed, well nourished, + ill appearing and + morbidly obese Eyes: PERRL, conjunctivae normal, anicteric sclerae ENMT: external ear and nose normal, oropharynx normal Neck: trachea midline, no thyromegaly Respiratory: no respiratory distress Auscultation: + diminished lung sounds, + crackles (At the bases) and + wheezes Cardiovascular: Rate/Rhythm: regular rate and regular rhythm; not tachycardic Heart Sounds: normal S1, normal S2 and + murmur Extremities: + edema (1-2+ edema bilaterally) Gastrointestinal (Abdomen): Inspection/Auscultation: normal bowel sounds; abdomen not distended Percussion/Palpation: abdomen soft; abdomen nontender Musculoskeletal: No acute arthritis in any joint Neurologic: Alert, 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. No focal sensory or no motor deficit appreciated Lymphatic: no cervical or axillary lymphadenopathy Results & Data Results & Data ([facility]) Vital Signs (Past 12 Hours) Vital Signs Temp Pulse Pulse Resp BP Pulse Ox O2 Del Method 07/30/22 11:37 70 20 91 Room Air 07/30/22 11:21 36.5 C 64 18 149/69 H 92 Room Air 07/30/22 07:53 65 07/30/22 07:22 36.5 C 69 18 140/76 91 Room Air 07/30/22 07:11 72 16 92 Room Air 07/30/22 04:08 Nasal Cannula 07/30/22 02:55 36.6 C 74 20 111/66 90 Room Air O2 Flow Rate 07/30/22 11:37 07/30/22 11:21 07/30/22 07:53 07/30/22 07:22 07/30/22 07:11 07/30/22 04:08 4 07/30/22 02:55 Laboratory Results Short CBC 07/30/22 Range/Units 01:52 WBC 8.75 (4.8-10.8) K/ul Hgb 14.1 (14.0-18.0) g/dl Hct 43.7 (40.1-51.0) % Plt Count 242 (130-400) K/uL BMP 07/29/22 07/30/22 Unknown 01:52 Sodium 139 138 Potassium 3.7 3.6 Chloride 100 102 Carbon Dioxide 36 H 33 H BUN 9 9 Creatinine 0.98 0.93 Glucose 171 H 152 H Calcium 8.9 8.3 L Liver Function 07/29/22 Range/Units Unknown Total Bilirubin 0.6 (0.2-1.0) mg/dl AST 13 (13-39) U/L ALT 12 (7-52) U/L Alkaline Phosphatase 128 H (34-104) U/L Albumin 3.5 (3.4-5.0) gm/dl Medications Administered Current Inpatient Medications Albuterol (Albut/Ipratrop 3mg/0.5mg Neb 3 Ml Vial) 3 ml NEB QIDR [facility]MPERATRIZ; Protocol Stop: 08/28/22 18:59 Last Admin: 07/30/22 11:37 Dose: 3 ml Aspirin (Aspirin 81 Mg Ectab) 81 mg PO QAM [facility] Stop: 08/29/22 08:59 Last Admin: 07/30/22 08:59 Dose: 81 mg Atorvastatin Calcium (Atorvastatin 40 Mg Tab) 80 mg PO DAILY@1400 [facility] Stop: 08/29/22 13:59 Benzonatate (Benzonatate 100 Mg Capsule) 100 mg PO TID PRN PRN Reason: cough Stop: 08/28/22 16:53 Last Admin: 07/29/22 23:58 Dose: 100 mg Buprenorphine HCl (Buprenorphine Hcl 8 Mg Subl) 8 mg SL TID [facility] Stop: 08/28/22 20:59 Last Admin: 07/30/22 09:23 Dose: 8 mg Dextrose (Dextrose 50% 50 Ml Syringe) 25 - 50 ml IV UD PRN; Protocol PRN Reason: Hypoglycemia Protocol Stop: 08/28/22 16:53 Docusate Sodium (Docusate Sodium 100 Mg Cap) 100 mg PO BID [facility] Stop: 08/28/22 20:59 Last Admin: 07/30/22 09:00 Dose: 100 mg Duloxetine HCl (Duloxetine Hcl 60 Mg Cap) 60 mg PO DAILY [facility] Stop: 08/29/22 08:59 Last Admin: 07/30/22 09:00 Dose: 60 mg Famotidine (Famotidine 20 Mg Tab) 20 mg PO DAILY [facility] Stop: 08/29/22 08:59 Last Admin: 07/30/22 09:00 Dose: 20 mg Ferrous Sulfate (Ferrous Sulfate 325 Mg Tab) 325 mg PO DAILY@0800 [facility] Stop: 08/29/22 07:59 Last Admin: 07/30/22 08:56 Dose: 325 mg Finasteride (Finasteride 5 Mg Tab) 5 mg PO QAM [facility] Stop: 08/29/22 08:59 Last Admin: 07/30/22 09:01 Dose: 5 mg Fluticasone Propionate (Fluticasone Propionate Na Spr 16 Gm Btl) 2 sprays HANSA DAILY [facility] Stop: 08/29/22 08:59 Last Admin: 07/30/22 09:01 Dose: 2 sprays Folic Acid (Folic Acid 1 Mg Tab) 1 mg PO QAM [facility] Stop: 08/29/22 08:59 Last Admin: 07/30/22 09:02 Dose: 1 mg Furosemide (Furosemide 40 Mg/4 Ml Vial) 40 mg IV BID17 [facility] Stop: 08/28/22 20:59 Last Admin: 07/30/22 09:02 Dose: 40 mg Gabapentin (Gabapentin 800 Mg Tab) 800 mg PO TID [facility] Stop: 08/28/22 20:59 Last Admin: 07/30/22 09:03 Dose: 800 mg Glucagon (Glucagon For Inj 1 Mg Vial) 1 mg SQ UD PRN; Protocol PRN Reason: Hypoglycemia Protocol Stop: 08/28/22 16:53 Glucose (Glucose 40% Gel 15 Gm Tube) 15 - 30 gm PO UD PRN; Protocol PRN Reason: Hypoglycemia Protocol Stop: 08/28/22 16:53 Glucose (Glucose 10 Tab/Tube) 4 - 8 tab PO UD PRN; Protocol PRN Reason: Hypoglycemia Treatment Stop: 08/28/22 16:53 Guaifenesin (Guaifenesin 600 Mg Tabcr) 1,200 mg PO BID [facility] Stop: 08/28/22 20:59 Last Admin: 07/30/22 09:03 Dose: 1,200 mg Acetaminophen (Ofirmev) 1,000 mg in 100 mls @ 400 mls/hr IV Q8H PRN PRN Reason: Pain Stop: 08/01/22 17:01 Last Infusion: 07/30/22 12:15 Dose: Infused Insulin Aspart (Insulin Aspart Per Unit) 0 units SC ACHS [facility] Stop: 08/28/22 20:59 Last Admin: 07/30/22 12:02 Dose: 16 units Insulin Glargine (Lantus Per Unit Charge) 0 - 25 units SQ BID [facility] Stop: 08/28/22 20:59 Last Admin: 07/30/22 08:55 Dose: 25 units Isosorbide Dinitrate (Isosorbide Dinitrate 20 Mg Tab) 20 mg PO DAILY [facility] Stop: 08/29/22 08:59 Last Admin: 07/30/22 09:04 Dose: 20 mg Isosorbide Dinitrate (Isosorbide Dinitrate 10 Mg Tab) 10 mg PO DAILY [facility] Stop: 08/29/22 08:59 Last Admin: 07/30/22 09:04 Dose: 10 mg Lidocaine HCl (Lidocaine 2% Jelly 5 Ml Tube) 1 ml EXT PRN PRN PRN Reason: Catheter insertion Stop: 08/29/22 13:44 Lorazepam (Lorazepam 0.5 Mg Tab) 0.5 mg PO Q8H PRN PRN Reason: Anxiety Stop: 08/28/22 16:53 Last Admin: 07/30/22 09:17 Dose: 0.5 mg Magnesium Oxide (Magnesium Oxide 400 Mg Tab) 400 mg PO DAILY [facility] Stop: 08/29/22 08:59 Last Admin: 07/30/22 09:04 Dose: 400 mg Metoprolol Succinate (Metoprolol Succ 25mg Ext Rel Tab) 75 mg PO BID [facility] Stop: 08/28/22 20:59 Last Admin: 07/30/22 09:05 Dose: 75 mg Miscellaneous (Carbohydrates For Hypoglycemia ) 15 - 30 gm PO UD PRN PRN Reason: Hypoglycemia Protocol Stop: 08/28/22 16:53 Miscellaneous (Remove Nicoderm Patch) 1 each N/A DAILY@0859 [facility] Stop: 08/29/22 08:58 Last Admin: 07/30/22 08:57 Dose: 1 each Nicotine (Nicotine 21 Mg/24 Hr Tdsy) 21 mg TD QAM [facility] Stop: 08/28/22 17:29 Last Admin: 07/30/22 09:05 Dose: 21 mg Nystatin (Nystatin Powder 15gm Btl) 1 appln EXT TID PRN PRN Reason: Skin Irritation Stop: 08/28/22 16:53 Ondansetron HCl (Ondansetron Inj 2 Mg/Ml 2 Ml Vial) 4 mg IV Q6H PRN PRN Reason: Nausea Stop: 08/28/22 16:53 Last Admin: 07/29/22 23:59 Dose: 4 mg Pantoprazole Sodium (Pantoprazole 40 Mg Tab) [facility] Protocol Stop: 08/29/22 06:29 Last Admin: 07/30/22 06:33 Dose: 40 mg Polyethylene Glycol (Polyethylene (Miralax) 17 Gm Pack) 17 gm PO [facility] Stop: 08/29/22 08:59 Last Admin: 07/30/22 09:06 Dose: 17 gm Potassium Chloride (Potassium Chloride Crtab 20 Meq Tabcr) 20 meq PO BID [facility] Stop: 08/28/22 20:59 Last Admin: 07/30/22 09:06 Dose: 20 meq Sennosides (Senna 8.6 Mg Tab) 8.6 mg PO DAILY PRN PRN Reason: Constipation Stop: 08/28/22 16:53 Last Admin: 07/30/22 09:07 Dose: 8.6 mg Spironolactone (Spironolactone 25 Mg Tab) 25 mg PO [facility] Stop: 08/29/22 08:59 Last Admin: 07/30/22 09:06 Dose: 25 mg Tamsulosin HCl (Tamsulosin Hcl 0.4 Mg Cap) 0.8 mg PO [facility] Stop: 08/29/22 08:59 Last Admin: 07/30/22 09:07 Dose: 0.8 mg
[2022-07-30] MEDS: ATORVASTATIN 40 MG TAB PO SCH (14:33)
[2022-07-30 14:58] LABS: Appearance Urine Cloudy (Clear); Bacteria Urine Automated Negative (Negative); Bilirubin Urine Negative (Negative); Blood Urine 3+ (Negative); Color Urine Dark Yellow; Epithelial Cell Urine Auto >30 /lpf (0-5); Glucose Urine UA Negative (Negative); Ketones Urine Trace (Negative); Leukocyte Esterase Urine 1+ (Negative); Nitrite Urine Negative (Negative); Protein Urine 2+ (Negative); RBC Urine Automated >30 /hpf (0-4); Urobilinogen Urine Negative (Negative); WBC Urine Automated >30 /hpf (0-5)
[2022-07-30 15:26] LABS: Cast Urine Automated 0 /lpf (0-5)
[2022-07-30] MEDS: NYSTATIN POWDER 15GM BTL EXT PRN ×2 (17:15→20:38)
[2022-07-30] MEDS: BENZONATATE 100 MG CAPSULE PO PRN (19:53)
[2022-07-30] MEDS ORDERED: ALBUTEROL HFA 8 GM INHALER INH PRN (20:11)
[2022-07-30] MEDS: CYCLOBENZAPRINE HCL 10 MG TAB PO PRN (20:37)
--- NOTE | 2022-07-30 21:39 | Electrocardiogram Report ---
Test Reason : Blood Pressure : / mmHG Vent. Rate : 073 BPM Atrial Rate : 073 BPM P-R Int : 158 ms QRS Dur : 094 ms QT Int : 404 ms P-R-T Axes : 028 043 050 degrees QTc Int : 445 ms Poor data quality, interpretation may be adversely affected Normal sinus rhythm Incomplete right bundle branch block When compared with ECG of 29-JUL-2022 12:58, No significant change was found Confirmed by Shaquille Canales ([id number]) on 07/30/2022 9:39:18 PM Referred By: REFERRED SELF Confirmed By:Shaquille Canales
--- NOTE | 2022-07-30 21:54 | Electrocardiogram Report ---
Test Reason : Blood Pressure : / mmHG Vent. Rate : 072 BPM Atrial Rate : 072 BPM P-R Int : 160 ms QRS Dur : 104 ms QT Int : 426 ms P-R-T Axes : 085 049 048 degrees QTc Int : 466 ms Poor data quality, interpretation may be adversely affected Normal sinus rhythm Nonspecific ST abnormality Incomplete right bundle branch block Abnormal ECG When compared with ECG of 30-JUL-2022 00:09, No significant change was found Confirmed by Shaquille Canales ([id number]) on 07/30/2022 9:54:32 PM Referred By: REFERRED SELF Confirmed By:Shaquille Canales
[2022-07-31] MEDS: ACETAMINOPHEN 1,000 MG/100 ML VIAL IV PRN ×3 (03:37→20:52)
[2022-07-31] MEDS: BENZONATATE 100 MG CAPSULE PO PRN (03:38)
[2022-07-31] MEDS: PANTOprazole 40 MG TAB PO SCH (06:31)
[2022-07-31] MEDS: ALBUT/IPRATROP 3MG/0.5MG NEB 3 ML VIAL NEB SCH ×4 (07:03→19:13)
[2022-07-31] MEDS: INSULIN ASPART PER UNIT SC SCH ×4 (08:34→20:52)
[2022-07-31 08:37] LABS: INR 2.7 (0.9-1.1); Prothrombin Time 27.7 Seconds (9.0-12.0)
[2022-07-31] MEDS: DOCUSATE SODIUM 100 MG CAP PO SCH ×2 (08:46→21:03)
[2022-07-31] MEDS: POTASSIUM CHLORIDE CRTAB 20 MEQ TABCR PO SCH ×2 (08:47→20:59)
[2022-07-31] MEDS: METOPROLOL SUCC 25MG EXT REL TAB PO SCH ×2 (08:47→21:02)
[2022-07-31] MEDS: guaiFENesin 600 MG TABCR PO SCH ×2 (08:48→21:02)
[2022-07-31] MEDS: FERROUS SULFATE 325 MG TAB PO SCH (08:48)
[2022-07-31] MEDS: GABAPENTIN 800 MG TAB PO SCH ×3 (08:48→21:03)
[2022-07-31] MEDS: ISOSORBIDE DINITRATE 10 MG TAB PO SCH (08:48)
[2022-07-31] MEDS: buprenorphine HCL 8 MG SUBL SL SCH ×3 (08:48→21:08)
[2022-07-31] MEDS: TAMSULOSIN HCL 0.4 MG CAP PO SCH (08:48)
[2022-07-31] MEDS: FINASTERIDE 5 MG TAB PO SCH (08:48)
[2022-07-31] MEDS: DULoxetine HCL 60 MG CAP PO SCH (08:49)
[2022-07-31] MEDS: SPIRONOLACTONE 25 MG TAB PO SCH (08:49)
[2022-07-31] MEDS: MAGNESIUM OXIDE 400 MG TAB PO SCH (08:49)
[2022-07-31] MEDS: FOLIC ACID 1 MG TAB PO SCH (08:49)
[2022-07-31] MEDS: ASPIRIN 81 MG ECTAB PO SCH (08:49)
[2022-07-31] MEDS: FLUTICASONE PROPIONATE NA SPR 16 GM BTL NAE SCH (08:49)
[2022-07-31] MEDS: FAMOTIDINE 20 MG TAB PO SCH (08:49)
[2022-07-31] MEDS: ISOSORBIDE DINITRATE 20 MG TAB PO SCH (08:49)
[2022-07-31] MEDS: POLYETHYLENE (MIRALAX) 17 GM PACK PO SCH (08:50)
[2022-07-31] MEDS: FUROSEMIDE 40 MG/4 ML VIAL IV SCH ×2 (08:50→16:39)
[2022-07-31] MEDS: NICOTINE 21 MG/24 HR TDSY TD SCH (08:51)
[2022-07-31] MEDS: LANTUS PER UNIT CHARGE SQ SCH ×2 (09:05→20:52)
[2022-07-31 09:32] LABS: BUN Creatinine Ratio 12.6 (10-20); Calcium 8.6 mg/dl (8.5-10.1); Creatinine Clr Calc Pharmacy 163.3 ml/min; Est GFR (African American) 106.2 ml/min; Est GFR (Non-African American) 91.7 ml/min; Potassium 3.8 mmol/L (3.5-5.1)
[2022-07-31] MEDS: CYCLOBENZAPRINE HCL 10 MG TAB PO PRN ×2 (09:59→21:00)
[2022-07-31] MEDS: LORazepam 0.5 MG TAB PO PRN ×2 (09:59→21:00)
[2022-07-31] MEDS ORDERED: WARFARIN SOD 5 MG TAB PO SCH (11:30)
[2022-07-31] MEDS: methylPREDNISolone 40 MG in SYRINGE 0 ML IV SCH ×2 (12:29→21:00)
[2022-07-31] MEDS ORDERED: SODIUM CHLORIDE 0.65% NA SOLN 45 ML (OCEAN) PRN (12:30)
[2022-07-31] MEDS ORDERED: FUROSEMIDE 40 MG/4 ML VIAL IV ONE (12:43)
--- NOTE | 2022-07-31 14:08 | Hospitalist Progress Note ---
Date of Service July 31, 2022 Assessment & Plan (1) Chest pain: Plan: History CAD Patient is 52 y/o M with PMH DM II, HTN, H/O PE, on Coumadin, diastolic CHF, chronic back pain, COPD, urinary retention with chronic Lloyd, depression, anxiety, h/o subdural hematoma, SAH, STEMI, history of recurrent hospitalizations presented to ER with c/o chest pain since yesterday not relieved with nitro In ER vitals stable. EKG without acute ST elevation. Initial high-sensitivity troponin: 3.8 Likely atypical chest pain History Echo 05/22/2022: EF: 60-65%, no wall motion abnormality, grade 2 diastolic dysfunction Will hold on additional echo currently Trend troponin Continue aspirin, atorvastatin, metoprolol, isosorbide If troponins uptrending consider cardiology consult No more chest pain and her troponins are unremarkable for any ACS (2) Acute on chronic diastolic (congestive) heart failure: Plan: Reports 30 pound weight gain and bilateral lower extremity edema x2 weeks BNP: 32 In ER given Lasix 40 mg IV Hold home Lasix and convert to IV Continue spironolactone Monitor I's and O's, daily weight, low-sodium diet, fluid restriction Has been diuresing enough and so far negative balance is more than 2 L We will continue diuresing-has had -5 L so far Will increase the dose of Lasix to 80 mg twice daily Monitor PRP and intake output chart BPH History urinary retention Chronic Lloyd Catheter Bladder scan as needed Continue tamsulosin, finasteride Lloyd catheter has not been changed for a long time-urine is very dirty Will insert new Lloyd and send urine for UA and culture if needed UA has been negative for any infection History PE Supratherapeutic INR On chronic Coumadin INR: 5.8 Hold Coumadin INR in a.m.-improved to's 4.6 INR is 2.7 today and restart Coumadin COPD (chronic obstructive pulmonary disease): Chronic wheezing Recently treated outpatient with Augmentin and prednisone course for reported productive cough. Patient reports decreased cough since treatment Will hold on further antibiotics and steroids at this time Uses 4 L oxygen at bedtime Scheduled Duonebs Continue home inhalers Worsening cough with wheezing-we will start Solu-Medrol 40 mg twice daily Sputum culture History obesity hypoventilation syndrome Uses 4 L oxygen at bedtime and as needed DM type 2 (diabetes mellitus, type 2): A1c: 7.4 on 04/08/2022 Hold home meds Basal bolus insulin per protocol Chronic pain: Continue gabapentin, buprenorphine Morbid obesity: BMI: 59.8 Lifestyle modifications recommended DVT Prophylaxis On Coumadin. INR: Currently supratherapeutic Admission and Anticipated Discharge Date Admission Date: July 29, 2022 Subjective 07/30/2022 The patient was seen and examined in medical telemetry unit He has been feeling better since admission Denies any significant symptoms, no more chest pain, no fever and or chills and no problem with urine 07/31/2022 The patient was seen and examined in medical telemetry unit He has been complaining of cough with productive of yellowish phlegm and more wheezing Denies any fever and or chills Wanted to have medications for probable COPD exacerbation Review of Systems Review of Systems: All systems reviewed and are unremarkable except as noted below Respiratory: No shortness of breath at rest and wheezing has been improved Physical Exam Physical Exam: Lying in bed comfortably Constitutional: well developed, well nourished, + ill appearing and + morbidly obese Eyes: PERRL, conjunctivae normal, anicteric sclerae ENMT: external ear and nose normal, oropharynx normal Neck: trachea midline, no thyromegaly Respiratory: no respiratory distress Auscultation: + diminished lung sounds, + crackles (At the bases) and + wheezes Cardiovascular: Rate/Rhythm: regular rate and regular rhythm; not tachycardic Heart Sounds: normal S1, normal S2 and + murmur Extremities: + edema (1-2+ edema bilaterally) Gastrointestinal (Abdomen): Inspection/Auscultation: normal bowel sounds; abdomen not distended Percussion/Palpation: abdomen soft; abdomen nontender Musculoskeletal: No acute arthritis involving any joint Neurologic: Alert, 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. No focal sensory or no motor deficit appreciated Lymphatic: no cervical or axillary lymphadenopathy Results & Data Results & Data ([facility]) Vital Signs (Past 12 Hours) Vital Signs Temp Pulse Pulse Resp BP BP Pulse Ox 07/31/22 12:00 36.6 C 86 20 114/64 93 07/31/22 08:00 07/31/22 10:41 86 18 95 07/31/22 07:59 36.5 C 83 20 137/61 94 07/31/22 07:05 19 L 85 19 98 11/11/22 03:38 36.5 C 67 20 114/68 98 O2 Del Method O2 Flow Rate 07/31/22 12:00 Room Air 07/31/22 08:00 Room Air 07/31/22 10:41 Room Air 07/31/22 07:59 Room Air 07/31/22 07:05 Nasal Cannula 4 07/31/22 03:38 Room Air Laboratory Results [facility] 07/31/22 08:11 Sodium 141 Potassium 3.8 Chloride 102 Carbon Dioxide 36 H BUN 12 Creatinine 0.95 Glucose 151 H Calcium 8.6 Urine 07/30/22 Range/Units 14:25 Urine Color Dark Yellow Urine Appearance Cloudy A (Clear) Urine pH 5.0 (4.5-7.5) Ur Specific [place] 1.030 (1.000-1.030) Urine Protein 2+ H (Negative) Urine Glucose (UA) Negative (Negative) Medications Administered Current Inpatient Medications Albuterol (Albut/Ipratrop 3mg/0.5mg Neb 3 Ml Vial) 3 ml NEB QIDR [facility]; Protocol Stop: 08/28/22 18:59 Last Admin: 07/31/22 10:40 Dose: 3 ml Albuterol (Albuterol Hfa 8 Gm Inhaler) 2 puffs INH Q4R PRN PRN Reason: Shortness Of Breath Or Wheezing Stop: 08/29/22 20:10 Aspirin (Aspirin 81 Mg Ectab) 81 mg PO QAM [facility] Stop: 08/29/22 08:59 Last Admin: 07/31/22 08:49 Dose: 81 mg Atorvastatin Calcium (Atorvastatin 40 Mg Tab) 80 mg PO DAILY@1400 [facility] Stop: 08/29/22 13:59 Last Admin: 07/30/22 14:33 Dose: 80 mg Benzonatate (Benzonatate 100 Mg Capsule) 100 mg PO TID PRN PRN Reason: cough Stop: 08/28/22 16:53 Last Admin: 07/31/22 03:38 Dose: 100 mg Buprenorphine HCl (Buprenorphine Hcl 8 Mg Subl) 8 mg SL TID [facility] Stop: 08/28/22 20:59 Last Admin: 07/31/22 08:48 Dose: 8 mg Cyclobenzaprine HCl (Cyclobenzaprine Hcl 10 Mg Tab) 10 mg PO BID PRN PRN Reason: Muscle Spasm Stop: 08/29/22 20:11 Last Admin: 07/31/22 09:59 Dose: 10 mg Dextrose (Dextrose 50% 50 Ml Syringe) 25 - 50 ml IV UD PRN; Protocol PRN Reason: Hypoglycemia Protocol Stop: 08/28/22 16:53 Docusate Sodium (Docusate Sodium 100 Mg Cap) 100 mg PO BID [facility] Stop: 08/28/22 20:59 Last Admin: 07/31/22 08:46 Dose: 100 mg Duloxetine HCl (Duloxetine Hcl 60 Mg Cap) 60 mg PO DAILY [facility] Stop: 08/29/22 08:59 Last Admin: 07/31/22 08:49 Dose: 60 mg Famotidine (Famotidine 20 Mg Tab) 20 mg PO DAILY [facility] Stop: 08/29/22 08:59 Last Admin: 07/31/22 08:49 Dose: 20 mg Ferrous Sulfate (Ferrous Sulfate 325 Mg Tab) 325 mg PO DAILY@0800 [facility] Stop: 08/29/22 07:59 Last Admin: 07/31/22 08:48 Dose: 325 mg Finasteride (Finasteride 5 Mg Tab) 5 mg PO QAM [facility] Stop: 08/29/22 08:59 Last Admin: 07/31/22 08:48 Dose: 5 mg Fluticasone Propionate (Fluticasone Propionate Na Spr 16 Gm Btl) 2 sprays HANSA DAILY [facility] Stop: 08/29/22 08:59 Last Admin: 07/31/22 08:49 Dose: 2 sprays Folic Acid (Folic Acid 1 Mg Tab) 1 mg PO QAM [facility] Stop: 08/29/22 08:59 Last Admin: 07/31/22 08:49 Dose: 1 mg Furosemide (Furosemide 40 Mg/4 Ml Vial) 80 mg IV BID17 [facility] Stop: 08/30/22 16:59 Gabapentin (Gabapentin 800 Mg Tab) 800 mg PO TID [facility] Stop: 08/28/22 20:59 Last Admin: 07/31/22 08:48 Dose: 800 mg Glipizide (Glipizide 5 Mg Tab) 10 mg PO BID [facility] Stop: 08/30/22 20:59 Glucagon (Glucagon For Inj 1 Mg Vial) 1 mg SQ UD PRN; Protocol PRN Reason: Hypoglycemia Protocol Stop: 08/28/22 16:53 Glucose (Glucose 40% Gel 15 Gm Tube) 15 - 30 gm PO UD PRN; Protocol PRN Reason: Hypoglycemia Protocol Stop: 08/28/22 16:53 Glucose (Glucose 10 Tab/Tube) 4 - 8 tab PO UD PRN; Protocol PRN Reason: Hypoglycemia Treatment Stop: 08/28/22 16:53 Guaifenesin (Guaifenesin 600 Mg Tabcr) 1,200 mg PO BID [facility] Stop: 08/28/22 20:59 Last Admin: 07/31/22 08:48 Dose: 1,200 mg Acetaminophen (Ofirmev) 1,000 mg in 100 mls @ 400 mls/hr IV Q8H PRN PRN Reason: Pain Stop: 08/01/22 17:01 Last Infusion: 07/31/22 13:00 Dose: Infused Methylprednisolone 40 mg/ (Syringe) 0.64 mls @ 1.5 mls/min IV BID [facility] Stop: 08/30/22 12:14 Last Admin: 07/31/22 12:29 Dose: 1.5 mls/min Insulin Aspart (Insulin Aspart Per Unit) 0 units SC ACHS [facility] Stop: 08/28/22 20:59 Last Admin: 07/31/22 12:33 Dose: 12 units Insulin Glargine (Lantus Per Unit Charge) 0 - 25 units SQ BID [facility] Stop: 08/28/22 20:59 Last Admin: 07/31/22 09:05 Dose: 25 units Isosorbide Dinitrate (Isosorbide Dinitrate 20 Mg Tab) 20 mg PO DAILY [facility] Stop: 08/29/22 08:59 Last Admin: 07/31/22 08:49 Dose: 20 mg Isosorbide Dinitrate (Isosorbide Dinitrate 10 Mg Tab) 10 mg PO DAILY [facility] Stop: 08/29/22 08:59 Last Admin: 07/31/22 08:48 Dose: 10 mg Lidocaine HCl (Lidocaine 2% Jelly 5 Ml Tube) 1 ml EXT PRN PRN PRN Reason: Catheter insertion Stop: 08/29/22 13:44 Last Admin: 07/30/22 13:56 Dose: 1 ml Lorazepam (Lorazepam 0.5 Mg Tab) 0.5 mg PO Q8H PRN PRN Reason: Anxiety Stop: 08/28/22 16:53 Last Admin: 07/31/22 09:59 Dose: 0.5 mg Magnesium Oxide (Magnesium Oxide 400 Mg Tab) 400 mg PO DAILY [facility] Stop: 08/29/22 08:59 Last Admin: 07/31/22 08:49 Dose: 400 mg Metoprolol Succinate (Metoprolol Succ 25mg Ext Rel Tab) 75 mg PO BID [facility] Stop: 08/28/22 20:59 Last Admin: 07/31/22 08:47 Dose: 75 mg Miscellaneous (Carbohydrates For Hypoglycemia ) 15 - 30 gm PO UD PRN PRN Reason: Hypoglycemia Protocol Stop: 08/28/22 16:53 Miscellaneous (Remove Nicoderm Patch) 1 each N/A DAILY@0859 [facility] Stop: 08/29/22 08:58 Last Admin: 07/31/22 08:50 Dose: 1 each Nicotine (Nicotine 21 Mg/24 Hr Tdsy) 21 mg TD QAM [facility] Stop: 08/28/22 17:29 Last Admin: 07/31/22 08:51 Dose: 21 mg Nystatin (Nystatin Powder 15gm Btl) 1 appln EXT TID PRN PRN Reason: Skin Irritation Stop: 08/28/22 16:53 Last Admin: 07/30/22 20:38 Dose: 1 appln Ondansetron HCl (Ondansetron Inj 2 Mg/Ml 2 Ml Vial) 4 mg IV Q6H PRN PRN Reason: Nausea Stop: 08/28/22 16:53 Last Admin: 07/29/22 23:59 Dose: 4 mg Pantoprazole Sodium ([facility] 40 Mg Tab) [facility] Protocol Stop: 08/29/22 06:29 Last Admin: 07/31/22 06:31 Dose: 40 mg Polyethylene Glycol (Polyethylene (Miralax) 17 Gm Pack) 17 gm PO QAM [facility] Stop: 08/29/22 08:59 Last Admin: 07/31/22 08:50 Dose: 17 gm Potassium Chloride (Potassium Chloride Crtab 20 Meq Tabcr) 20 meq PO BID [facility] Stop: 08/28/22 20:59 Last Admin: 07/31/22 08:47 Dose: 20 meq Sennosides (Senna 8.6 Mg Tab) 8.6 mg PO DAILY PRN PRN Reason: Constipation Stop: 08/28/22 16:53 Last Admin: 07/30/22 09:07 Dose: 8.6 mg Sodium Chloride (Sodium Chloride 0.65% Na Soln 45 Ml ([place])) 2 sprays NA BID [facility] Stop: 08/30/22 20:59 Sodium Chloride (Sodium Chloride 0.65% Na Soln 45 Ml ([place])) 2 sprays NA NOW PRN PRN Reason: Dryness Stop: 08/30/22 12:29 Spironolactone ([facility] 25 Mg Tab) [facility] [place] Stop: 08/29/22 08:59 Last Admin: 07/31/22 08:49 Dose: 25 mg Tamsulosin HCl (Tamsulosin Hcl 0.4 Mg Cap) [facility] [place] Stop: 08/29/22 08:59 Last Admin: 07/31/22 08:48 Dose: 0.8 mg Warfarin Sodium (Warfarin Sod 2.5 Mg Tab) 2.5 mg PO SuTuWeThFrSa@1600 [facility] Stop: 08/30/22 15:59 Warfarin Sodium (Warfarin Sod 5 Mg Tab) 5 mg PO Mo@1600 [facility] Stop: 09/02/22 15:59
[2022-07-31] MEDS: ATORVASTATIN 40 MG TAB PO SCH (14:24)
[2022-07-31] MEDS ORDERED: WARFARIN SOD 2.5 MG TAB PO SCH (16:00)
[2022-07-31] MEDS: WARFARIN SOD 2.5 MG TAB PO SCH (16:37)
[2022-07-31] MEDS: SODIUM CHLORIDE 0.65% NA SOLN 45 ML (OCEAN) SCH (21:00)
[2022-07-31] MEDS: glipiZIDE 5 MG TAB PO SCH (21:01)
[2022-07-31] MEDS: ONDANSETRON INJ 2 MG/ML 2 ML VIAL IV PRN (21:53)
[2022-08-01] MEDS: PANTOprazole 40 MG TAB PO SCH (05:57)
[2022-08-01 07:00] LABS: BUN Creatinine Ratio 11.1 (10-20); Calcium 9.3 mg/dl (8.5-10.1); Est GFR (Non-African American) 78.5 ml/min; Magnesium 2.1 mg/dl (1.7-2.4); Potassium 4.6 mmol/L (3.5-5.1)
[2022-08-01 07:21] LABS: INR 1.6 (0.9-1.1)
[2022-08-01] MEDS: ALBUT/IPRATROP 3MG/0.5MG NEB 3 ML VIAL NEB SCH (07:28)
[2022-08-01] MEDS: ACETAMINOPHEN 1,000 MG/100 ML VIAL IV PRN ×2 (07:36→16:49)
[2022-08-01] MEDS ORDERED: ALBUT/IPRATROP 3MG/0.5MG NEB 3 ML VIAL NEB PRN (07:37)
[2022-08-01] MEDS: LANTUS PER UNIT CHARGE SQ SCH ×2 (08:48→21:10)
[2022-08-01] MEDS: ONDANSETRON INJ 2 MG/ML 2 ML VIAL IV PRN (08:49)
[2022-08-01] MEDS: INSULIN ASPART PER UNIT SC SCH ×4 (08:49→21:10)
[2022-08-01] MEDS: POLYETHYLENE (MIRALAX) 17 GM PACK PO SCH (08:50)
[2022-08-01] MEDS: DOCUSATE SODIUM 100 MG CAP PO SCH ×2 (08:50→20:54)
[2022-08-01] MEDS: FINASTERIDE 5 MG TAB PO SCH (08:50)
[2022-08-01] MEDS: LORazepam 0.5 MG TAB PO PRN ×2 (08:50→20:54)
[2022-08-01] MEDS: buprenorphine HCL 8 MG SUBL SL SCH ×3 (08:50→20:53)
[2022-08-01] MEDS: guaiFENesin 600 MG TABCR PO SCH ×2 (08:50→20:56)
[2022-08-01] MEDS: methylPREDNISolone 40 MG in SYRINGE 0 ML IV SCH ×2 (08:50→20:56)
[2022-08-01] MEDS: CYCLOBENZAPRINE HCL 10 MG TAB PO PRN ×2 (08:50→20:54)
[2022-08-01] MEDS: ISOSORBIDE DINITRATE 10 MG TAB PO SCH (08:51)
[2022-08-01] MEDS: METOPROLOL SUCC 25MG EXT REL TAB PO SCH ×2 (08:51→20:57)
[2022-08-01] MEDS: POTASSIUM CHLORIDE CRTAB 20 MEQ TABCR PO SCH ×2 (08:51→20:58)
[2022-08-01] MEDS: NICOTINE 21 MG/24 HR TDSY TD SCH (08:51)
[2022-08-01] MEDS: ISOSORBIDE DINITRATE 20 MG TAB PO SCH (08:51)
[2022-08-01] MEDS: FUROSEMIDE 40 MG/4 ML VIAL IV SCH ×2 (08:52→17:31)
[2022-08-01] MEDS: ASPIRIN 81 MG ECTAB PO SCH (08:52)
[2022-08-01] MEDS: SPIRONOLACTONE 25 MG TAB PO SCH (08:52)
[2022-08-01] MEDS: FOLIC ACID 1 MG TAB PO SCH (08:52)
[2022-08-01] MEDS: FERROUS SULFATE 325 MG TAB PO SCH (08:52)
[2022-08-01] MEDS: FAMOTIDINE 20 MG TAB PO SCH (08:52)
[2022-08-01] MEDS: glipiZIDE 5 MG TAB PO SCH ×2 (08:52→20:55)
[2022-08-01] MEDS: TAMSULOSIN HCL 0.4 MG CAP PO SCH (08:52)
[2022-08-01] MEDS: SODIUM CHLORIDE 0.65% NA SOLN 45 ML (OCEAN) SCH ×2 (08:53→20:59)
[2022-08-01] MEDS: GABAPENTIN 800 MG TAB PO SCH ×3 (08:53→20:54)
[2022-08-01] MEDS: DULoxetine HCL 60 MG CAP PO SCH (08:53)
[2022-08-01] MEDS: MAGNESIUM OXIDE 400 MG TAB PO SCH (08:53)
[2022-08-01] MEDS: FLUTICASONE PROPIONATE NA SPR 16 GM BTL NAE SCH (08:53)
[2022-08-01] MEDS: ATORVASTATIN 40 MG TAB PO SCH (13:31)
--- NOTE | 2022-08-01 15:27 | Hospitalist Progress Note ---
Date of Service August 01, 2022 Assessment & Plan (1) Chest pain: Plan: History CAD Patient is 52 y/o M with PMH DM II, HTN, H/O PE, on Coumadin, diastolic CHF, chronic back pain, COPD, urinary retention with chronic Lloyd, depression, anxiety, h/o subdural hematoma, SAH, STEMI, history of recurrent hospitalizations presented to ER with c/o chest pain since yesterday not relieved with nitro In ER vitals stable. EKG without acute ST elevation. Initial high-sensitivity troponin: 3.8 Likely atypical chest pain History Echo 05/22/2022: EF: 60-65%, no wall motion abnormality, grade 2 diastolic dysfunction Will hold on additional echo currently Trend troponin Continue aspirin, atorvastatin, metoprolol, isosorbide If troponins uptrending consider cardiology consult No more chest pain and her troponins are unremarkable for any ACS (2) Acute on chronic diastolic (congestive) heart failure: Plan: Reports 30 pound weight gain and bilateral lower extremity edema x2 weeks BNP: 32 In ER given Lasix 40 mg IV Hold home Lasix and convert to IV Continue spironolactone Monitor I's and O's, daily weight, low-sodium diet, fluid restriction Has been diuresing enough and so far negative balance is more than 2 L We will continue diuresing-has had -5 L so far Will increase the dose of Lasix to 80 mg twice daily Has been diuresing enough and has a negative balance of more than 7 L as of 08/01/2022 Kidney function remains stable and will continue current doses of Lasix Monitor PRP BPH History urinary retention Chronic Lloyd Catheter Bladder scan as needed Continue tamsulosin, finasteride Lloyd catheter has not been changed for a long time-urine is very dirty Will insert new Lloyd and send urine for UA and culture if needed UA has been negative for any infection-urine culture is growing lactobacillus species History PE Supratherapeutic INR On chronic Coumadin INR: 5.8 Hold Coumadin INR in a.m.-improved to's 4.6 INR is 2.7 today and restart Coumadin COPD (chronic obstructive pulmonary disease): Chronic wheezing Recently treated outpatient with Augmentin and prednisone course for reported productive cough. Patient reports decreased cough since treatment Will hold on further antibiotics and steroids at this time Uses 4 L oxygen at bedtime Scheduled Duonebs Continue home inhalers Worsening cough with wheezing-we will start Solu-Medrol 40 mg twice daily Sputum culture-moderate normal isabel final report to follow History obesity hypoventilation syndrome Uses 4 L oxygen at bedtime and as needed DM type 2 (diabetes mellitus, type 2): A1c: 7.4 on 04/08/2022 Hold home meds Basal bolus insulin per protocol Chronic pain: Continue gabapentin, buprenorphine Morbid obesity: BMI: 59.8 Lifestyle modifications recommended DVT Prophylaxis On Coumadin. INR: Currently supratherapeutic Admission and Anticipated Discharge Date Admission Date: July 29, 2022 Subjective 07/30/2022 The patient was seen and examined in medical telemetry unit He has been feeling better since admission Denies any significant symptoms, no more chest pain, no fever and or chills and no problem with urine 07/31/2022 The patient was seen and examined in medical telemetry unit He has been complaining of cough with productive of yellowish phlegm and more wheezing Denies any fever and or chills Wanted to have medications for probable COPD exacerbation 08/01/2022 Patient was seen and examined in medical telemetry unit He has been stable and feeling much better No shortness of breath at rest but he still has wheezing Weight has been reduced but has negative balance of more than 7 L Wants to have podiatry consult Review of Systems 2 Review of Systems: All systems reviewed and are unremarkable except as noted below Respiratory: No shortness of breath at rest and wheezing has been improved Physical Exam Physical Exam: Lying in bed comfortably Constitutional: well developed, well nourished, + ill appearing and + morbidly obese Eyes: PERRL, conjunctivae normal, anicteric sclerae ENMT: external ear and nose normal, oropharynx normal Neck: trachea midline, no thyromegaly Respiratory: no respiratory distress Auscultation: + diminished lung sounds, + crackles (At the bases) and + wheezes Cardiovascular: Rate/Rhythm: regular rate and regular rhythm; not tachycardic Heart Sounds: normal S1, normal S2 and + murmur Extremities: + edema (1-2+ edema bilaterally) Gastrointestinal (Abdomen): Inspection/Auscultation: normal bowel sounds; abdomen not distended Percussion/Palpation: abdomen soft; abdomen nontender Musculoskeletal: No acute arthritis involving any joint Neurologic: Alert, 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. No focal sensory and motor deficit appreciated Psychiatric: A+Ox3, euthymic affect Lymphatic: no cervical or axillary lymphadenopathy Results & Data Results & Data ([facility]) Vital Signs (Past 12 Hours) Vital Signs Temp Pulse Pulse Resp BP Pulse Ox O2 Del Method 08/01/22 11:27 36.8 C 88 18 112/57 L 91 Nasal Cannula 08/01/22 10:27 Room Air 08/01/22 07:44 36.6 C 78 20 157/63 H 91 Nasal Cannula 08/01/22 07:28 84 18 92 Nasal Cannula 08/01/22 07:16 83 08/01/22 06:32 36.6 C 78 18 150/77 H 93 Nasal Cannula O2 Flow Rate 08/01/22 11:27 2 08/01/22 10:27 08/01/22 07:44 2 08/01/22 07:28 2 08/01/22 07:16 08/01/22 06:32 2 Laboratory Results [facility] 08/01/22 06:07 Sodium 137 Potassium 4.6 D Chloride 101 Carbon Dioxide 33 H BUN 12 Creatinine 1.08 Glucose 235 H Calcium 9.3 Medications Administered Current Inpatient Medications Albuterol (Albuterol Hfa 8 Gm Inhaler) 2 puffs INH Q4R PRN PRN Reason: Shortness Of Breath Or Wheezing Stop: 08/29/22 20:10 Albuterol (Albut/Ipratrop 3mg/0.5mg Neb 3 Ml Vial) 3 ml NEB QIDR PRN; Protocol PRN Reason: Wheezing Stop: 08/28/22 18:59 Aspirin (Aspirin 81 Mg Ectab) 81 mg PO QAM [facility] Stop: 08/29/22 08:59 Last Admin: 08/01/22 08:52 Dose: 81 mg Atorvastatin Calcium (Atorvastatin 40 Mg Tab) 80 mg PO DAILY@1400 [facility] Stop: 08/29/22 13:59 Last Admin: 08/01/22 13:31 Dose: 80 mg Benzonatate (Benzonatate 100 Mg Capsule) 100 mg PO TID PRN PRN Reason: cough Stop: 08/28/22 16:53 Last Admin: 07/31/22 03:38 Dose: 100 mg Buprenorphine HCl (Buprenorphine Hcl 8 Mg Subl) 8 mg SL TID [facility] Stop: 08/28/22 20:59 Last Admin: 08/01/22 13:31 Dose: 8 mg Cyclobenzaprine HCl (Cyclobenzaprine Hcl 10 Mg Tab) 10 mg PO BID PRN PRN Reason: Muscle Spasm Stop: 08/29/22 20:11 Last Admin: 08/01/22 08:50 Dose: 10 mg Dextrose (Dextrose 50% 50 Ml Syringe) 25 - 50 ml IV UD PRN; Protocol PRN Reason: Hypoglycemia Protocol Stop: 08/28/22 16:53 Docusate Sodium (Docusate Sodium 100 Mg Cap) 100 mg PO BID [facility] Stop: 08/28/22 20:59 Last Admin: 08/01/22 08:50 Dose: 100 mg Duloxetine HCl (Duloxetine Hcl 60 Mg Cap) 60 mg PO DAILY [facility] Stop: 08/29/22 08:59 Last Admin: 08/01/22 08:53 Dose: 60 mg Famotidine (Famotidine 20 Mg Tab) 20 mg PO DAILY [facility] Stop: 08/29/22 08:59 Last Admin: 08/01/22 08:52 Dose: 20 mg Ferrous Sulfate (Ferrous Sulfate 325 Mg Tab) 325 mg PO DAILY@0800 [facility] Stop: 08/29/22 07:59 Last Admin: 08/01/22 08:52 Dose: 325 mg Finasteride (Finasteride 5 Mg Tab) 5 mg PO QAM [facility] Stop: 08/29/22 08:59 Last Admin: 08/01/22 08:50 Dose: 5 mg Fluticasone Propionate (Fluticasone Propionate Na Spr 16 Gm Btl) 2 sprays HANSA DAILY [facility] Stop: 08/29/22 08:59 Last Admin: 08/01/22 08:53 Dose: 2 sprays Folic Acid (Folic Acid 1 Mg Tab) 1 mg PO QAM [facility] Stop: 08/29/22 08:59 Last Admin: 08/01/22 08:52 Dose: 1 mg Furosemide (Furosemide 40 Mg/4 Ml Vial) 80 mg IV BID17 [facility] Stop: 08/30/22 16:59 Last Admin: 08/01/22 08:52 Dose: 80 mg Gabapentin (Gabapentin 800 Mg Tab) 800 mg PO TID [facility] Stop: 08/28/22 20:59 Last Admin: 08/01/22 13:31 Dose: 800 mg Glipizide (Glipizide 5 Mg Tab) 10 mg PO BID [facility] Stop: 08/30/22 20:59 Last Admin: 08/01/22 08:52 Dose: 10 mg Glucagon (Glucagon For Inj 1 Mg Vial) 1 mg SQ UD PRN; Protocol PRN Reason: Hypoglycemia Protocol Stop: 08/28/22 16:53 Glucose (Glucose 40% Gel 15 Gm Tube) 15 - 30 gm PO UD PRN; Protocol PRN Reason: Hypoglycemia Protocol Stop: 08/28/22 16:53 Glucose (Glucose 10 Tab/Tube) 4 - 8 tab PO UD PRN; Protocol PRN Reason: Hypoglycemia Treatment Stop: 08/28/22 16:53 Guaifenesin (Guaifenesin 600 Mg Tabcr) 1,200 mg PO BID [facility] Stop: 08/28/22 20:59 Last Admin: 08/01/22 08:50 Dose: 1,200 mg Acetaminophen (Ofirmev) 1,000 mg in 100 mls @ 400 mls/hr IV Q8H PRN PRN Reason: Pain Stop: 08/01/22 17:01 Last Infusion: 08/01/22 08:00 Dose: Infused Methylprednisolone 40 mg/ (Syringe) 0.64 mls @ 1.5 mls/min IV BID [facility] Stop: 08/30/22 12:14 Last Admin: 08/01/22 08:50 Dose: 1.5 mls/min Promethazine HCl 25 mg/ Sodium (Chloride) 51 mls @ 204 mls/hr IV Q6H PRN PRN Reason: Nausea And Vomiting Stop: 08/31/22 13:32 Insulin Aspart (Insulin Aspart Per Unit) 0 units SC ACHS [facility] Stop: 08/28/22 20:59 Last Admin: 08/01/22 12:39 Dose: 22 units Insulin Glargine (Lantus Per Unit Charge) 0 - 25 units SQ BID [facility] Stop: 08/28/22 20:59 Last Admin: 08/01/22 08:48 Dose: 25 units Isosorbide Dinitrate (Isosorbide Dinitrate 20 Mg Tab) 20 mg PO DAILY [facility] Stop: 08/29/22 08:59 Last Admin: 08/01/22 08:51 Dose: 20 mg Isosorbide Dinitrate (Isosorbide Dinitrate 10 Mg Tab) 10 mg PO DAILY [facility] Stop: 08/29/22 08:59 Last Admin: 08/01/22 08:51 Dose: 10 mg Lidocaine HCl (Lidocaine 2% Jelly 5 Ml Tube) 1 ml EXT PRN PRN PRN Reason: Catheter insertion Stop: 08/29/22 13:44 Last Admin: 07/30/22 13:56 Dose: 1 ml Lorazepam (Lorazepam 0.5 Mg Tab) 0.5 mg PO Q8H PRN PRN Reason: Anxiety Stop: 08/28/22 16:53 Last Admin: 08/01/22 08:50 Dose: 0.5 mg Magnesium Oxide (Magnesium Oxide 400 Mg Tab) 400 mg PO DAILY [facility] Stop: 08/29/22 08:59 Last Admin: 08/01/22 08:53 Dose: 400 mg Metoprolol Succinate (Metoprolol Succ 25mg Ext Rel Tab) 75 mg PO BID [facility] Stop: 08/28/22 20:59 Last Admin: 08/01/22 08:51 Dose: 75 mg Miscellaneous (Carbohydrates For Hypoglycemia ) 15 - 30 gm PO UD PRN PRN Reason: Hypoglycemia Protocol Stop: 08/28/22 16:53 Miscellaneous (Remove Nicoderm Patch) 1 each N/A DAILY@0859 [facility] Stop: 08/29/22 08:58 Last Admin: 08/01/22 08:53 Dose: 1 each Nicotine (Nicotine 21 Mg/24 Hr Tdsy) 21 mg TD QAM [facility] Stop: 08/28/22 17:29 Last Admin: 08/01/22 08:51 Dose: 21 mg Nystatin (Nystatin Powder 15gm Btl) 1 appln EXT TID PRN PRN Reason: Skin Irritation Stop: 08/28/22 16:53 Last Admin: 07/30/22 20:38 Dose: 1 appln Pantoprazole Sodium (Pantoprazole 40 Mg Tab) 40 mg PO DAILYBB [facility]; Protocol Stop: 08/29/22 06:29 Last Admin: 08/01/22 05:57 Dose: 40 mg Polyethylene Glycol (Polyethylene (Miralax) 17 Gm Pack) 17 gm PO QAM [facility] Stop: 08/29/22 08:59 Last Admin: 08/01/22 08:50 Dose: 17 gm Potassium Chloride (Potassium Chloride Crtab 20 Meq Tabcr) 20 meq PO BID [facility] Stop: 08/28/22 20:59 Last Admin: 08/01/22 08:51 Dose: 20 meq Sennosides (Senna 8.6 Mg Tab) 8.6 mg PO DAILY PRN PRN Reason: Constipation Stop: 08/28/22 16:53 Last Admin: 07/30/22 09:07 Dose: 8.6 mg Sodium Chloride (Sodium Chloride 0.65% Na Soln 45 Ml ([place])) 2 sprays NA BID [facility] Stop: 08/30/22 20:59 Last Admin: 08/01/22 08:53 Dose: 2 sprays Sodium Chloride (Sodium Chloride 0.65% Na Soln 45 Ml ([place])) 2 sprays NA NOW PRN PRN Reason: Dryness Stop: 08/30/22 12:29 Last Admin: 07/31/22 14:24 Dose: 2 sprays Spironolactone (Spironolactone 25 Mg Tab) [facility] [place] Stop: 08/29/22 08:59 Last Admin: 08/01/22 08:52 Dose: 25 mg Tamsulosin HCl (Tamsulosin Hcl 0.4 Mg Cap) 0.8 mg [facility] [place] Stop: 08/29/22 08:59 Last Admin: 08/01/22 08:52 Dose: 0.8 mg Warfarin Sodium (Warfarin Sod 2.5 Mg Tab) 2.5 mg PO [id number]@1600 [facility] Stop: 08/30/22 15:59 Last Admin: 07/31/22 16:37 Dose: 2.5 mg Warfarin Sodium (Warfarin Sod 5 Mg Tab) 5 mg PO Mo@1600 [facility] Stop: 09/02/22 15:59
[2022-08-01] MEDS: PROMETHAZINE HCL 25 MG in SODIUM CHLORIDE 0.9% 50 ML IV PRN (15:32)
[2022-08-01] MEDS: WARFARIN SOD 2.5 MG TAB PO SCH (17:30)
[2022-08-02] MEDS ORDERED: ACETAMINOPHEN 1,000 MG/100 ML VIAL IV STA (02:03)
[2022-08-02] MEDS: PROMETHAZINE HCL 25 MG in SODIUM CHLORIDE 0.9% 50 ML IV PRN ×3 (02:41→23:15)
[2022-08-02] MEDS: PANTOprazole 40 MG TAB PO SCH (06:17)
[2022-08-02 06:48] LABS: INR 1.2 (0.9-1.1); Prothrombin Time 12.6 Seconds (9.0-12.0)
[2022-08-02 07:03] LABS: BUN Creatinine Ratio 24.4 (10-20); Calcium 9.3 mg/dl (8.5-10.1); Est GFR (African American) 113.4 ml/min; Est GFR (Non-African American) 97.9 ml/min; Potassium 4.5 mmol/L (3.5-5.1)
[2022-08-02] MEDS: METOPROLOL SUCC 25MG EXT REL TAB PO SCH ×2 (08:29→21:30)
[2022-08-02] MEDS: DOCUSATE SODIUM 100 MG CAP PO SCH ×2 (08:29→21:27)
[2022-08-02] MEDS: guaiFENesin 600 MG TABCR PO SCH ×2 (08:30→21:28)
[2022-08-02] MEDS: glipiZIDE 5 MG TAB PO SCH ×2 (08:30→21:29)
[2022-08-02] MEDS: POTASSIUM CHLORIDE CRTAB 20 MEQ TABCR PO SCH ×2 (08:31→21:31)
[2022-08-02] MEDS: GABAPENTIN 800 MG TAB PO SCH ×3 (08:31→21:29)
[2022-08-02] MEDS: ASPIRIN 81 MG ECTAB PO SCH (08:32)
[2022-08-02] MEDS: methylPREDNISolone 40 MG in SYRINGE 0 ML IV SCH ×2 (08:32→21:28)
[2022-08-02] MEDS: FINASTERIDE 5 MG TAB PO SCH (08:33)
[2022-08-02] MEDS: TAMSULOSIN HCL 0.4 MG CAP PO SCH (08:33)
[2022-08-02] MEDS: FERROUS SULFATE 325 MG TAB PO SCH (08:33)
[2022-08-02] MEDS: FAMOTIDINE 20 MG TAB PO SCH (08:34)
[2022-08-02] MEDS: MAGNESIUM OXIDE 400 MG TAB PO SCH (08:34)
[2022-08-02] MEDS: FOLIC ACID 1 MG TAB PO SCH (08:34)
[2022-08-02] MEDS: ISOSORBIDE DINITRATE 10 MG TAB PO SCH (08:35)
[2022-08-02] MEDS: ISOSORBIDE DINITRATE 20 MG TAB PO SCH (08:35)
[2022-08-02] MEDS: SPIRONOLACTONE 25 MG TAB PO SCH (08:36)
[2022-08-02] MEDS: DULoxetine HCL 60 MG CAP PO SCH (08:36)
[2022-08-02] MEDS: NICOTINE 21 MG/24 HR TDSY TD SCH (08:38)
[2022-08-02] MEDS: FLUTICASONE PROPIONATE NA SPR 16 GM BTL NAE SCH (08:49)
[2022-08-02] MEDS: SODIUM CHLORIDE 0.65% NA SOLN 45 ML (OCEAN) SCH ×2 (08:50→21:32)
[2022-08-02] MEDS: FUROSEMIDE 40 MG/4 ML VIAL IV SCH ×2 (09:35→17:27)
[2022-08-02] MEDS: buprenorphine HCL 8 MG SUBL SL SCH ×3 (09:35→21:25)
[2022-08-02] MEDS: POLYETHYLENE (MIRALAX) 17 GM PACK PO SCH (09:35)
[2022-08-02] MEDS: LANTUS PER UNIT CHARGE SQ SCH ×2 (09:39→21:24)
[2022-08-02] MEDS: INSULIN ASPART PER UNIT SC SCH ×4 (09:42→21:24)
[2022-08-02] MEDS: ATORVASTATIN 40 MG TAB PO SCH (12:25)
--- NOTE | 2022-08-02 13:16 | Hospitalist Progress Note ---
Date of Service August 02, 2022 Assessment & Plan (1) Chest pain: Plan: History CAD Patient is 52 y/o M with PMH DM II, HTN, H/O PE, on Coumadin, diastolic CHF, chronic back pain, COPD, urinary retention with chronic Lloyd, depression, anxiety, h/o subdural hematoma, SAH, STEMI, history of recurrent hospitalizations presented to ER with c/o chest pain since yesterday not relieved with nitro In ER vitals stable. EKG without acute ST elevation. Initial high-sensitivity troponin: 3.8 Likely atypical chest pain History Echo 05/22/2022: EF: 60-65%, no wall motion abnormality, grade 2 diastolic dysfunction Will hold on additional echo currently Trend troponin Continue aspirin, atorvastatin, metoprolol, isosorbide If troponins uptrending consider cardiology consult No more chest pain and her troponins are unremarkable for any ACS We will get PT and OT evaluation COPD (chronic obstructive pulmonary disease): Chronic wheezing Recently treated outpatient with Augmentin and prednisone course for reported productive cough. Patient reports decreased cough since treatment Will hold on further antibiotics and steroids at this time Uses 4 L oxygen at bedtime Scheduled Duonebs Continue home inhalers Worsening cough with wheezing-we will start Solu-Medrol 40 mg twice daily Sputum culture-moderate normal isabel final report to follow Minimal wheezing at rest and denies any shortness of breath with ambulation Has pain in the feet with abnormalities in the nails Asking for podiatry evaluation Consult has been placed (2) Acute on chronic diastolic (congestive) heart failure: Plan: Reports 30 pound weight gain and bilateral lower extremity edema x2 weeks BNP: 32 In ER given Lasix 40 mg IV Hold home Lasix and convert to IV Continue spironolactone Monitor I's and O's, daily weight, low-sodium diet, fluid restriction Has been diuresing enough and so far negative balance is more than 2 L We will continue diuresing-has had -5 L so far Will increase the dose of Lasix to 80 mg twice daily Has been diuresing enough and has a negative balance of more than 7 L as of 08/01/2022 Kidney function remains stable and will continue current doses of Lasix Monitor PRP BPH History urinary retention Chronic Lloyd Catheter Bladder scan as needed Continue tamsulosin, finasteride Lloyd catheter has not been changed for a long time-urine is very dirty Will insert new Lloyd and send urine for UA and culture if needed UA has been negative for any infection-urine culture is growing lactobacillus species History PE Supratherapeutic INR On chronic Coumadin INR: 5.8 Hold Coumadin INR in a.m.-improved to's 4.6 INR is 2.7 today and restart Coumadin History obesity hypoventilation syndrome Uses 4 L oxygen at bedtime and as needed DM type 2 (diabetes mellitus, type 2): A1c: 7.4 on 04/08/2022 Hold home meds Basal bolus insulin per protocol Chronic pain: Continue gabapentin, buprenorphine Morbid obesity: BMI: 59.8 Lifestyle modifications recommended DVT Prophylaxis On Coumadin. INR: Currently supratherapeutic INR is subtherapeutic at 1.2 He will get 7.5 mg Coumadin today Admission and Anticipated Discharge Date Admission Date: July 29, 2022 Subjective 07/30/2022 The patient was seen and examined in medical telemetry unit He has been feeling better since admission Denies any significant symptoms, no more chest pain, no fever and or chills and no problem with urine 07/31/2022 The patient was seen and examined in medical telemetry unit He has been complaining of cough with productive of yellowish phlegm and more wheezing Denies any fever and or chills Wanted to have medications for probable COPD exacerbation 08/01/2022 Patient was seen and examined in medical telemetry unit He has been stable and feeling much better No shortness of breath at rest but he still has wheezing Weight has been reduced but has negative balance of more than 7 L Wants to have podiatry consult 08/02/2022 The patient was seen and examined in medical telemetry unit He has been stable and feeling much better Still has wheezing without any shortness of Review of Systems Review of Systems: All systems reviewed and are unremarkable except as noted below Respiratory: No shortness of breath at rest and wheezing has been improved Physical Exam Physical Exam: Lying in bed comfortably Constitutional: well developed, well nourished, + ill appearing and + morbidly obese Eyes: PERRL, conjunctivae normal, anicteric sclerae ENMT: external ear and nose normal, oropharynx normal Neck: trachea midline, no thyromegaly Respiratory: no respiratory distress Auscultation: + diminished lung sounds, + crackles (At the bases) and + wheezes Cardiovascular: Rate/Rhythm: regular rate and regular rhythm; not tachycardic Heart Sounds: normal S1, normal S2 and + murmur Extremities: + edema (1-2+ edema bilaterally) Gastrointestinal (Abdomen): Inspection/Auscultation: normal bowel sounds; abdomen not distended Percussion/Palpation: abdomen soft; abdomen nontender Musculoskeletal: Minimal pain in the ankle but no acute arthritis involving any joint Neurologic: normal touch/pain/proprioception and moves all extremities; no focal motor deficits Psychiatric: A+Ox3, euthymic affect Lymphatic: no cervical or axillary lymphadenopathy Results & Data Results & Data ([facility]) Vital Signs (Past 12 Hours) Vital Signs Temp Pulse Pulse Pulse Resp BP BP 08/02/22 11:57 36.6 C 76 14 168/66 H 08/02/22 08:22 36.7 C 78 76 14 133/69 08/02/22 07:25 72 08/02/22 05:47 82 08/02/22 02:54 36.7 C 79 18 134/68 Pulse Ox O2 Del Method O2 Flow Rate 08/02/22 11:57 92 Room Air 08/02/22 08:22 92 Room Air 08/02/22 07:25 08/02/22 05:47 08/02/22 02:54 95 Nasal Cannula 4 Laboratory Results [facility] 08/02/22 06:23 Sodium 133 L Potassium 4.5 Chloride 98 Carbon Dioxide 31 BUN 22 Creatinine 0.90 Glucose 324 H* Calcium 9.3 Medications Administered Current Inpatient Medications Albuterol (Albuterol Hfa 8 Gm Inhaler) 2 puffs INH Q4R PRN PRN Reason: Shortness Of Breath Or Wheezing Stop: 08/29/22 20:10 Albuterol (Albut/Ipratrop 3mg/0.5mg Neb 3 Ml Vial) 3 ml NEB QIDR PRN; Protocol PRN Reason: Wheezing Stop: 08/28/22 18:59 Aspirin (Aspirin 81 Mg Ectab) 81 mg PO QAM [facility] Stop: 08/29/22 08:59 Last Admin: 08/02/22 08:32 Dose: 81 mg Atorvastatin Calcium (Atorvastatin 40 Mg Tab) 80 mg PO DAILY@1400 [facility] Stop: 08/29/22 13:59 Last Admin: 08/02/22 12:25 Dose: 80 mg Benzonatate (Benzonatate 100 Mg Capsule) 100 mg PO TID PRN PRN Reason: cough Stop: 08/28/22 16:53 Last Admin: 07/31/22 03:38 Dose: 100 mg Buprenorphine HCl (Buprenorphine Hcl 8 Mg Subl) 8 mg SL TID [facility] Stop: 08/28/22 20:59 Last Admin: 08/02/22 09:35 Dose: 8 mg Cyclobenzaprine HCl (Cyclobenzaprine Hcl 10 Mg Tab) 10 mg PO BID PRN PRN Reason: Muscle Spasm Stop: 08/29/22 20:11 Last Admin: 08/01/22 20:54 Dose: 10 mg Dextrose (Dextrose 50% 50 Ml Syringe) 25 - 50 ml IV UD PRN; Protocol PRN Reason: Hypoglycemia Protocol Stop: 08/28/22 16:53 Docusate Sodium (Docusate Sodium 100 Mg Cap) 100 mg PO BID [facility] Stop: 08/28/22 20:59 Last Admin: 08/02/22 08:29 Dose: 100 mg Duloxetine HCl (Duloxetine Hcl 60 Mg Cap) 60 mg PO DAILY [facility] Stop: 08/29/22 08:59 Last Admin: 08/02/22 08:36 Dose: 60 mg Famotidine (Famotidine 20 Mg Tab) 20 mg PO DAILY [facility] Stop: 08/29/22 08:59 Last Admin: 08/02/22 08:34 Dose: 20 mg Ferrous Sulfate (Ferrous Sulfate 325 Mg Tab) 325 mg PO DAILY@0800 [facility] Stop: 08/29/22 07:59 Last Admin: 08/02/22 08:33 Dose: 325 mg Finasteride (Finasteride 5 Mg Tab) 5 mg PO QAM [facility] Stop: 08/29/22 08:59 Last Admin: 08/02/22 08:33 Dose: 5 mg Fluticasone Propionate (Fluticasone Propionate Na Spr 16 Gm Btl) 2 sprays HANSA DAILY [facility] Stop: 08/29/22 08:59 Last Admin: 08/02/22 08:49 Dose: 2 sprays Folic Acid (Folic Acid 1 Mg Tab) 1 mg PO QAM [facility] Stop: 08/29/22 08:59 Last Admin: 08/02/22 08:34 Dose: 1 mg Furosemide (Furosemide 40 Mg/4 Ml Vial) 80 mg IV BID17 [facility] Stop: 08/30/22 16:59 Last Admin: 08/02/22 09:35 Dose: 80 mg Gabapentin (Gabapentin 800 Mg Tab) 800 mg PO TID [facility] Stop: 08/28/22 20:59 Last Admin: 08/02/22 08:31 Dose: 800 mg Glipizide (Glipizide 5 Mg Tab) 10 mg PO BID [facility] Stop: 08/30/22 20:59 Last Admin: 08/02/22 08:30 Dose: 10 mg Glucagon (Glucagon For Inj 1 Mg Vial) 1 mg SQ UD PRN; Protocol PRN Reason: Hypoglycemia Protocol Stop: 08/28/22 16:53 Glucose (Glucose 40% Gel 15 Gm Tube) 15 - 30 gm PO UD PRN; Protocol PRN Reason: Hypoglycemia Protocol Stop: 08/28/22 16:53 Glucose (Glucose 10 Tab/Tube) 4 - 8 tab PO UD PRN; Protocol PRN Reason: Hypoglycemia Treatment Stop: 08/28/22 16:53 Guaifenesin (Guaifenesin 600 Mg Tabcr) 1,200 mg PO BID [facility] Stop: 08/28/22 20:59 Last Admin: 08/02/22 08:30 Dose: 1,200 mg Methylprednisolone 40 mg/ (Syringe) 0.64 mls @ 1.5 mls/min IV BID [facility] Stop: 08/30/22 12:14 Last Admin: 08/02/22 08:32 Dose: 1.5 mls/min Promethazine HCl 25 mg/ Sodium (Chloride) 51 mls @ 204 mls/hr IV Q6H PRN PRN Reason: Nausea And Vomiting Stop: 08/31/22 13:32 Last Infusion: 08/02/22 12:18 Dose: Infused Acetaminophen (Ofirmev) 1,000 mg in 100 mls @ 400 mls/hr IV Q8H PRN PRN Reason: Pain Stop: 08/05/22 12:01 Insulin Aspart (Insulin Aspart Per Unit) 0 units SC ACHS [facility] Stop: 08/28/22 20:59 Last Admin: 08/02/22 12:26 Dose: 18 units Insulin Glargine (Lantus Per Unit Charge) 0 - 25 units SQ BID [facility] Stop: 08/28/22 20:59 Last Admin: 08/02/22 09:39 Dose: 25 units Isosorbide Dinitrate (Isosorbide Dinitrate 20 Mg Tab) 20 mg PO DAILY [facility] Stop: 08/29/22 08:59 Last Admin: 08/02/22 08:35 Dose: 20 mg Isosorbide Dinitrate (Isosorbide Dinitrate 10 Mg Tab) 10 mg PO DAILY [facility] Stop: 08/29/22 08:59 Last Admin: 08/02/22 08:35 Dose: 10 mg Lidocaine HCl (Lidocaine 2% Jelly 5 Ml Tube) 1 ml EXT PRN PRN PRN Reason: Catheter insertion Stop: 08/29/22 13:44 Last Admin: 07/30/22 13:56 Dose: 1 ml Lorazepam (Lorazepam 0.5 Mg Tab) 0.5 mg PO Q8H PRN PRN Reason: Anxiety Stop: 08/28/22 16:53 Last Admin: 08/01/22 20:54 Dose: 0.5 mg Magnesium Oxide (Magnesium Oxide 400 Mg Tab) 400 mg PO DAILY [facility] Stop: 08/29/22 08:59 Last Admin: 08/02/22 08:34 Dose: 400 mg Metoprolol Succinate (Metoprolol Succ 25mg Ext Rel Tab) 75 mg PO BID [facility] Stop: 08/28/22 20:59 Last Admin: 08/02/22 08:29 Dose: 75 mg Miscellaneous (Carbohydrates For Hypoglycemia ) 15 - 30 gm PO UD PRN PRN Reason: Hypoglycemia Protocol Stop: 08/28/22 16:53 Miscellaneous (Remove Nicoderm Patch) 1 each N/A DAILY@0859 [facility] Stop: 08/29/22 08:58 Last Admin: 08/02/22 08:48 Dose: 1 each Nicotine (Nicotine 21 Mg/24 Hr Tdsy) 21 mg TD QAM [facility] Stop: 08/28/22 17:29 Last Admin: 08/02/22 08:38 Dose: 21 mg Nystatin (Nystatin Powder 15gm Btl) 1 appln EXT TID PRN PRN Reason: Skin Irritation Stop: 08/28/22 16:53 Last Admin: 07/30/22 20:38 Dose: 1 appln Pantoprazole Sodium ([facility]ant[facility]ole 40 Mg Tab) [facility] Protocol Stop: 08/29/22 06:29 Last Admin: 08/02/22 06:17 Dose: 40 mg Polyethylene Glycol (Polyethylene (Miralax) 17 Gm Pack) 17 gm PO QAM [facility] Stop: 08/29/22 08:59 Last Admin: 08/02/22 09:35 Dose: 17 gm Potassium Chloride (Potassium Chloride Crtab 20 Meq Tabcr) 20 meq PO BID [facility] Stop: 08/28/22 20:59 Last Admin: 08/02/22 08:31 Dose: 20 meq Sennosides (Senna 8.6 Mg Tab) 8.6 mg PO DAILY PRN PRN Reason: Constipation Stop: 08/28/22 16:53 Last Admin: 07/30/22 09:07 Dose: 8.6 mg Sodium Chloride (Sodium Chloride 0.65% Na Soln 45 Ml ([place])) 2 sprays NA BID [facility] Stop: 08/30/22 20:59 Last Admin: 08/02/22 08:50 Dose: 2 sprays Sodium Chloride (Sodium Chloride 0.65% Na Soln 45 Ml ([place])) 2 sprays NA NOW PRN PRN Reason: Dryness Stop: 08/30/22 12:29 Last Admin: 07/31/22 14:24 Dose: 2 sprays Spironolactone (Spironolactone 25 Mg Tab) 25 mg PO QAM [facility] Stop: 08/29/22 08:59 Last Admin: 08/02/22 08:36 Dose: 25 mg Tamsulosin HCl (Tamsulosin Hcl 0.4 Mg Cap) [facility] [place] Stop: 08/29/22 08:59 Last Admin: 08/02/22 08:33 Dose: 0.8 mg Warfarin Sodium (Warfarin Sod 2.5 Mg Tab) 2.5 mg PO SuTuWeThFrSa@1600 [facility] Stop: 08/30/22 15:59 Last Admin: 08/01/22 17:30 Dose: 2.5 mg Warfarin Sodium (Warfarin Sod 5 Mg Tab) 5 mg PO Mo@1600 [facility] Stop: 09/02/22 15:59 Warfarin Sodium (Warfarin Sod 5 Mg Tab) 5 mg PO DAILY@1600 [facility] Stop: 08/02/22 16:01
[2022-08-02] MEDS: ACETAMINOPHEN 1,000 MG/100 ML VIAL IV PRN ×2 (13:40→22:55)
[2022-08-02] MEDS: WARFARIN SOD 2.5 MG TAB PO SCH (15:46)
[2022-08-02] MEDS ORDERED: WARFARIN SOD 5 MG TAB PO ONE (16:00)
[2022-08-02] MEDS: LORazepam 0.5 MG TAB PO PRN (21:26)
[2022-08-02] MEDS: CYCLOBENZAPRINE HCL 10 MG TAB PO PRN (21:26)
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
[2022-08-02] MEDS ORDERED: DICLOFENAC SOD 1% GEL 100 GM TUBE EXT PRN (21:54)
[2022-08-03] MEDS: INSULIN ASPART PER UNIT SC SCH ×5 (00:15→21:09)
[2022-08-03] MEDS ORDERED: Nursing to Pharmacy Communication SCH (02:15)
[2022-08-03] MEDS: PANTOprazole 40 MG TAB PO SCH (06:04)
[2022-08-03] MEDS ORDERED: glipiZIDE 5 MG TAB PO SCH (07:30)
[2022-08-03] MEDS: LANTUS PER UNIT CHARGE SQ SCH ×2 (08:37→21:09)
[2022-08-03] MEDS: CYCLOBENZAPRINE HCL 10 MG TAB PO PRN ×2 (08:38→21:21)
[2022-08-03] MEDS: buprenorphine HCL 8 MG SUBL SL SCH ×3 (08:38→21:21)
[2022-08-03] MEDS: LORazepam 0.5 MG TAB PO PRN ×2 (08:38→21:21)
[2022-08-03] MEDS: METOPROLOL SUCC 25MG EXT REL TAB PO SCH ×2 (08:40→21:13)
[2022-08-03] MEDS: FUROSEMIDE 40 MG/4 ML VIAL IV SCH ×2 (08:41→17:12)
[2022-08-03] MEDS: FERROUS SULFATE 325 MG TAB PO SCH (08:42)
[2022-08-03] MEDS: ASPIRIN 81 MG ECTAB PO SCH (08:42)
[2022-08-03] MEDS: DOCUSATE SODIUM 100 MG CAP PO SCH ×2 (08:43→21:11)
[2022-08-03 08:44] LABS: Basophils # (auto) 0.04 K/uL (0-0.2); Basophils % (auto) 0.2 %; Hemoglobin 14.1 g/dl (14.0-18.0); Immature Granulocytes # (auto) 0.23 K/uL (0.00-0.02); Immature Granulocytes % (auto) 1.3 %; Lymphocytes # (auto) 2.96 K/uL (1.2-3.4); Lymphocytes % (auto) 16.9 %; Mean Corpuscular Hemoglobin 27.1 pg (25.0-34.0); Mean Corpuscular Hgb Conc 31.3 g/dL (32.0-36.0); Mean Corpuscular Volume 86.4 fL (80.0-100.0); Mean Platelet Volume 10.4 fL (9.4-12.4); Monocytes # (auto) 0.91 K/uL (0.24-0.82); Monocytes % (auto) 5.2 %; Neutrophils # (auto) 13.42 K/uL (1.4-6.5); Neutrophils % (auto) 76.4 %; Platelet Count 235 K/uL (130-400); RDW Coefficient of Variation 17.7 % (11.5-14.5); RDW Standard Deviation 55.7 fL (36.4-46.3); Red Blood Count 5.21 M/uL (4.63-6.08); White Blood Count 17.56 K/ul (4.8-10.8)
[2022-08-03] MEDS: FAMOTIDINE 20 MG TAB PO SCH (08:44)
[2022-08-03] MEDS: FINASTERIDE 5 MG TAB PO SCH (08:44)
[2022-08-03] MEDS: FLUTICASONE PROPIONATE NA SPR 16 GM BTL NAE SCH (08:45)
[2022-08-03] MEDS: ISOSORBIDE DINITRATE 20 MG TAB PO SCH (08:47)
[2022-08-03] MEDS: GABAPENTIN 800 MG TAB PO SCH ×3 (08:47→21:12)
[2022-08-03] MEDS: ISOSORBIDE DINITRATE 10 MG TAB PO SCH (08:47)
[2022-08-03] MEDS: MAGNESIUM OXIDE 400 MG TAB PO SCH (08:48)
[2022-08-03] MEDS: methylPREDNISolone 40 MG in SYRINGE 0 ML IV SCH ×2 (08:48→21:10)
[2022-08-03] MEDS: NICOTINE 21 MG/24 HR TDSY TD SCH (08:48)
[2022-08-03] MEDS: SPIRONOLACTONE 25 MG TAB PO SCH (08:49)
[2022-08-03] MEDS: POTASSIUM CHLORIDE CRTAB 20 MEQ TABCR PO SCH ×2 (08:49→21:14)
[2022-08-03] MEDS: SODIUM CHLORIDE 0.65% NA SOLN 45 ML (OCEAN) SCH ×2 (08:49→21:15)
[2022-08-03] MEDS: POLYETHYLENE (MIRALAX) 17 GM PACK PO SCH (08:49)
[2022-08-03] MEDS: TAMSULOSIN HCL 0.4 MG CAP PO SCH (08:50)
[2022-08-03] MEDS: DULoxetine HCL 60 MG CAP PO SCH (08:51)
[2022-08-03 09:07] LABS: INR 1.3 (0.9-1.1); Prothrombin Time 13.2 Seconds (9.0-12.0)
[2022-08-03 09:17] LABS: BUN Creatinine Ratio 28.4 (10-20); Calcium 9.9 mg/dl (8.5-10.1); Creatinine Clr Calc Pharmacy 192.5 ml/min; Est GFR (African American) 118.4 ml/min; Est GFR (Non-African American) 102.2 ml/min; Potassium 4.3 mmol/L (3.5-5.1)
[2022-08-03] MEDS: ACETAMINOPHEN 1,000 MG/100 ML VIAL IV PRN ×2 (09:20→18:33)
[2022-08-03] MEDS: PROMETHAZINE HCL 25 MG in SODIUM CHLORIDE 0.9% 50 ML IV PRN ×2 (11:03→19:08)
[2022-08-03] MEDS: FOLIC ACID 1 MG TAB PO SCH (11:34)
[2022-08-03] MEDS: guaiFENesin 600 MG TABCR PO SCH ×2 (11:34→21:12)
[2022-08-03] MEDS ORDERED: WARFARIN SOD 5 MG TAB PO SCH ×2 (16:00)
--- NOTE | 2022-08-03 16:11 | Hospitalist Progress Note ---
Date of Service August 03, 2022 Assessment & Plan (1) Chest pain: Plan: History CAD Patient is 52 y/o M with PMH DM II, HTN, H/O PE, on Coumadin, diastolic CHF, chronic back pain, COPD, urinary retention with chronic Llody, depression, anxiety, h/o subdural hematoma, SAH, STEMI, history of recurrent hospitalizations presented to ER with c/o chest pain since yesterday not relieved with nitro In ER vitals stable. EKG without acute ST elevation. Initial high-sensitivity troponin: 3.8 Likely atypical chest pain History Echo 05/22/2022: EF: 60-65%, no wall motion abnormality, grade 2 diastolic dysfunction Will hold on additional echo currently Trend troponin Continue aspirin, atorvastatin, metoprolol, isosorbide If troponins uptrending consider cardiology consult No more chest pain and her troponins are unremarkable for any ACS We will get PT and OT evaluation COPD (chronic obstructive pulmonary disease): Chronic wheezing Recently treated outpatient with Augmentin and prednisone course for reported productive cough. Patient reports decreased cough since treatment Will hold on further antibiotics and steroids at this time Uses 4 L oxygen at bedtime Scheduled Duonebs Continue home inhalers Worsening cough with wheezing-we will start Solu-Medrol 40 mg twice daily Sputum culture-moderate normal isabel final report to follow Minimal wheezing at rest and denies any shortness of breath with ambulation Sputum came back positive for haemophilus likely colonization without any symptoms and will not be treated Will DC Solu-Medrol and start prednisone from tomorrow Has pain in the feet with abnormalities in the nails Asking for podiatry evaluation Consult has been placed Appreciate manager studio input and recommendation Diabetic shoes will be provided (2) Acute on chronic diastolic (congestive) heart failure: Plan: Reports 30 pound weight gain and bilateral lower extremity edema x2 weeks BNP: 32 In ER given Lasix 40 mg IV Hold home Lasix and convert to IV Continue spironolactone Monitor I's and O's, daily weight, low-sodium diet, fluid restriction Has been diuresing enough and so far negative balance is more than 2 L We will continue diuresing-has had -5 L so far Will increase the dose of Lasix to 80 mg twice daily Has been diuresing enough and has a negative balance of more than 7 L as of 08/01/2022 Kidney function remains stable and will continue current doses of Lasix Monitor PRP BPH History urinary retention Chronic Lloyd Catheter Bladder scan as needed Continue tamsulosin, finasteride Lloyd catheter has not been changed for a long time-urine is very dirty Will insert new Lloyd and send urine for UA and culture if needed UA has been negative for any infection-urine culture is growing lactobacillus species History PE Supratherapeutic INR On chronic Coumadin INR: 5.8 Hold Coumadin INR in a.m.-improved to's 4.6 INR is 2.7 today and restart Coumadin INR is 1.3 today History obesity hypoventilation syndrome Uses 4 L oxygen at bedtime and as needed DM type 2 (diabetes mellitus, type 2): A1c: 7.4 on 04/08/2022 Hold home meds Basal bolus insulin per protocol Chronic pain: Continue gabapentin, buprenorphine Morbid obesity: BMI: 59.8 Lifestyle modifications recommended DVT Prophylaxis On Coumadin. INR: Currently supratherapeutic INR is subtherapeutic at 1.2 He will get 7.5 mg Coumadin today Admission and Anticipated Discharge Date Admission Date: July 29, 2022 Subjective 07/30/2022 The patient was seen and examined in medical telemetry unit He has been feeling better since admission Denies any significant symptoms, no more chest pain, no fever and or chills and no problem with urine 07/31/2022 The patient was seen and examined in medical telemetry unit He has been complaining of cough with productive of yellowish phlegm and more wheezing Denies any fever and or chills Wanted to have medications for probable COPD exacerbation 08/01/2022 Patient was seen and examined in medical telemetry unit He has been stable and feeling much better No shortness of breath at rest but he still has wheezing Weight has been reduced but has negative balance of more than 7 L Wants to have podiatry consult 08/02/2022 The patient was seen and examined in medical telemetry unit He has been stable and feeling much better Still has wheezing without any shortness of 08/03/2022 The patient was seen and examined in medical telemetry unit He has been stable and complains of minimal wheezing Has lost more than 18 L of fluid since admission No fever and or chills Review of Systems Review of Systems: All systems reviewed and are unremarkable except as noted below Respiratory: No shortness of breath at rest and wheezing has been improved Physical Exam Physical Exam: Sitting on a chair without any acute distress Constitutional: well developed, well nourished, + ill appearing and + morbidly obese Eyes: PERRL, conjunctivae normal, anicteric sclerae ENMT: external ear and nose normal, oropharynx normal Neck: trachea midline, no thyromegaly Respiratory: no respiratory distress Auscultation: + diminished lung sounds, + crackles (At the bases) and + wheezes Cardiovascular: Rate/Rhythm: regular rate and regular rhythm; not tachycardic Heart Sounds: normal S1, normal S2 and + murmur Extremities: + edema (1-2+ edema bilaterally) Gastrointestinal (Abdomen): Inspection/Auscultation: normal bowel sounds; abdomen not distended Percussion/Palpation: abdomen soft; abdomen nontender Musculoskeletal: No acute arthritis in any joint Neurologic: normal touch/pain/proprioception and moves all extremities; no focal motor deficits Psychiatric: A+Ox3, euthymic affect Lymphatic: no cervical or axillary lymphadenopathy Results & Data Results & Data ([facility]) Vital Signs (Past 12 Hours) Vital Signs Temp Pulse Resp BP Pulse Ox 08/03/22 15:58 37.2 C 74 20 116/76 93 08/03/22 14:11 93 08/03/22 11:19 36.7 C 82 20 117/71 94 08/03/22 07:44 36.5 C 63 18 141/84 H 98 Laboratory Results Short CBC 08/03/22 Range/Units 08:15 WBC 17.56 H (4.8-10.8) K/ul Hgb 14.1 (14.0-18.0) g/dl Hct 45.0 (40.1-51.0) % Plt Count 235 (130-400) K/uL BMP 08/03/22 08:15 Sodium 137 Potassium 4.3 Chloride 101 Carbon Dioxide 35 H BUN 23 Creatinine 0.81 Glucose 204 H Calcium 9.9 Medications Administered Current Inpatient Medications Albuterol (Albuterol Hfa 8 Gm Inhaler) 2 puffs INH Q4R PRN PRN Reason: Shortness Of Breath Or Wheezing Stop: 08/29/22 20:10 Albuterol (Albut/Ipratrop 3mg/0.5mg Neb 3 Ml Vial) 3 ml NEB QIDR PRN; Protocol PRN Reason: Wheezing Stop: 08/28/22 18:59 Aspirin (Aspirin 81 Mg Ectab) 81 mg PO QAM [facility] Stop: 08/29/22 08:59 Last Admin: 08/03/22 08:42 Dose: 81 mg Atorvastatin Calcium (Atorvastatin 40 Mg Tab) 80 mg PO DAILY@1400 [facility] Stop: 08/29/22 13:59 Last Admin: 08/02/22 12:25 Dose: 80 mg Benzonatate (Benzonatate 100 Mg Capsule) 100 mg PO TID PRN PRN Reason: cough Stop: 08/28/22 16:53 Last Admin: 07/31/22 03:38 Dose: 100 mg Buprenorphine HCl (Buprenorphine Hcl 8 Mg Subl) 8 mg SL TID [facility] Stop: 08/28/22 20:59 Last Admin: 08/03/22 14:07 Dose: 8 mg Cyclobenzaprine HCl (Cyclobenzaprine Hcl 10 Mg Tab) 10 mg PO BID PRN PRN Reason: Muscle Spasm Stop: 08/29/22 20:11 Last Admin: 08/03/22 08:38 Dose: 10 mg Dextrose (Dextrose 50% 50 Ml Syringe) 25 - 50 ml IV UD PRN; Protocol PRN Reason: Hypoglycemia Protocol Stop: 08/28/22 16:53 Diclofenac Sodium (Diclofenac Sod 1% Gel 100 Gm Tube) 2 gm EXT BID PRN; Protocol PRN Reason: Pain Stop: 09/01/22 21:59 Last Admin: 08/03/22 13:33 Dose: 2 gm Docusate Sodium (Docusate Sodium 100 Mg Cap) 100 mg PO BID [facility] Stop: 08/28/22 20:59 Last Admin: 08/03/22 08:43 Dose: 100 mg Duloxetine HCl (Duloxetine Hcl 60 Mg Cap) 60 mg PO DAILY [facility] Stop: 08/29/22 08:59 Last Admin: 08/03/22 08:51 Dose: 60 mg Famotidine (Famotidine 20 Mg Tab) 20 mg PO DAILY [facility] Stop: 08/29/22 08:59 Last Admin: 08/03/22 08:44 Dose: 20 mg Ferrous Sulfate (Ferrous Sulfate 325 Mg Tab) 325 mg PO DAILY@0800 [facility] Stop: 08/29/22 07:59 Last Admin: 08/03/22 08:42 Dose: 325 mg Finasteride (Finasteride 5 Mg Tab) 5 mg PO QAM [facility] Stop: 08/29/22 08:59 Last Admin: 08/03/22 08:44 Dose: 5 mg Fluticasone Propionate (Fluticasone Propionate Na Spr 16 Gm Btl) 2 sprays HANSA DAILY [facility] Stop: 08/29/22 08:59 Last Admin: 08/03/22 08:45 Dose: 2 sprays Folic Acid (Folic Acid 1 Mg Tab) 1 mg PO QAM [facility] Stop: 08/29/22 08:59 Last Admin: 08/03/22 11:34 Dose: 1 mg Furosemide (Furosemide 40 Mg/4 Ml Vial) 80 mg IV BID17 [facility] Stop: 08/30/22 16:59 Last Admin: 08/03/22 08:41 Dose: 80 mg Gabapentin (Gabapentin 800 Mg Tab) 800 mg PO TID [facility] Stop: 08/28/22 20:59 Last Admin: 08/03/22 14:07 Dose: 800 mg Glucagon (Glucagon For Inj 1 Mg Vial) 1 mg SQ UD PRN; Protocol PRN Reason: Hypoglycemia Protocol Stop: 08/28/22 16:53 Glucose (Glucose 40% Gel 15 Gm Tube) 15 - 30 gm PO UD PRN; Protocol PRN Reason: Hypoglycemia Protocol Stop: 08/28/22 16:53 Glucose (Glucose 10 Tab/Tube) 4 - 8 tab PO UD PRN; Protocol PRN Reason: Hypoglycemia Treatment Stop: 08/28/22 16:53 Guaifenesin (Guaifenesin 600 Mg Tabcr) 1,200 mg PO BID [facility] Stop: 08/28/22 20:59 Last Admin: 08/03/22 11:34 Dose: 1,200 mg Methylprednisolone 40 mg/ (Syringe) 0.64 mls @ 1.5 mls/min IV BID [facility] Stop: 08/03/22 23:59 Last Admin: 08/03/22 08:48 Dose: 1.5 mls/min Promethazine HCl 25 mg/ Sodium (Chloride) 51 mls @ 204 mls/hr IV Q6H PRN PRN Reason: Nausea And Vomiting Stop: 08/31/22 13:32 Last Infusion: 08/03/22 11:30 Dose: Infused Acetaminophen (Ofirmev) 1,000 mg in 100 mls @ 400 mls/hr IV Q8H PRN PRN Reason: Pain Stop: 08/05/22 12:01 Last Infusion: 08/03/22 10:30 Dose: Infused Insulin Aspart (Insulin Aspart Per Unit) 0 units SC ACHS [facility] Stop: 08/28/22 20:59 Last Admin: 08/03/22 12:21 Dose: 25 units Insulin Glargine (Lantus Per Unit Charge) 0 - 25 units SQ BID [facility] Stop: 08/28/22 20:59 Last Admin: 08/03/22 08:37 Dose: 25 units Isosorbide Dinitrate (Isosorbide Dinitrate 20 Mg Tab) 20 mg PO DAILY [facility] Stop: 08/29/22 08:59 Last Admin: 08/03/22 08:47 Dose: 20 mg Isosorbide Dinitrate (Isosorbide Dinitrate 10 Mg Tab) 10 mg PO DAILY [facility] Stop: 08/29/22 08:59 Last Admin: 08/03/22 08:47 Dose: 10 mg Lidocaine HCl (Lidocaine 2% Jelly 5 Ml Tube) 1 ml EXT PRN PRN PRN Reason: Catheter insertion Stop: 08/29/22 13:44 Last Admin: 07/30/22 13:56 Dose: 1 ml Lorazepam (Lorazepam 0.5 Mg Tab) 0.5 mg PO Q8H PRN PRN Reason: Anxiety Stop: 08/28/22 16:53 Last Admin: 08/03/22 08:38 Dose: 0.5 mg Magnesium Oxide (Magnesium Oxide 400 Mg Tab) 400 mg PO DAILY [facility] Stop: 08/29/22 08:59 Last Admin: 08/03/22 08:48 Dose: 400 mg Metoprolol Succinate (Metoprolol Succ 25mg Ext Rel Tab) 75 mg PO BID [facility] Stop: 08/28/22 20:59 Last Admin: 08/03/22 08:40 Dose: 75 mg Miscellaneous (Carbohydrates For Hypoglycemia ) 15 - 30 gm PO UD PRN PRN Reason: Hypoglycemia Protocol Stop: 08/28/22 16:53 Miscellaneous (Remove Nicoderm Patch) 1 each N/A DAILY@0859 [facility] Stop: 08/29/22 08:58 Last Admin: 08/03/22 08:42 Dose: 1 each Nicotine (Nicotine 21 Mg/24 Hr Tdsy) 21 mg TD QAM [facility] Stop: 08/28/22 17:29 Last Admin: 08/03/22 08:48 Dose: 21 mg Nystatin (Nystatin Powder 15gm Btl) 1 appln EXT TID PRN PRN Reason: Skin Irritation Stop: 08/28/22 16:53 Last Admin: 07/30/22 20:38 Dose: 1 appln Pantoprazole Sodium (Pantoprazole 40 Mg Tab) [facility] Protocol Stop: 08/29/22 06:29 Last Admin: 08/03/22 06:04 Dose: 40 mg Polyethylene Glycol (Polyethylene (Miralax) 17 Gm Pack) [facility]: 08/29/22 08:59 Last Admin: 08/03/22 08:49 Dose: 17 gm Potassium Chloride (Potassium Chloride Crtab 20 Meq Tabcr) 20 meq PO BID [facility] Stop: 08/28/22 20:59 Last Admin: 08/03/22 08:49 Dose: 20 meq Prednisone (Prednisone 20 Mg Tab) 40 mg PO DAILY [facility] Stop: 09/03/22 08:59 Sennosides (Senna 8.6 Mg Tab) 8.6 mg PO DAILY PRN PRN Reason: Constipation Stop: 08/28/22 16:53 Last Admin: 07/30/22 09:07 Dose: 8.6 mg Sodium Chloride (Sodium Chloride 0.65% Na Soln 45 Ml ([place])) 2 sprays NA BID [facility] Stop: 08/30/22 20:59 Last Admin: 08/03/22 08:49 Dose: 2 sprays Sodium Chloride (Sodium Chloride 0.65% Na Soln 45 Ml ([place])) 2 sprays NA NOW PRN PRN Reason: Dryness Stop: 08/30/22 12:29 Last Admin: 07/31/22 14:24 Dose: 2 sprays Spironolactone (Spironolactone 25 Mg Tab) [facility] [place] Stop: 08/29/22 08:59 Last Admin: 08/03/22 08:49 Dose: 25 mg Tamsulosin HCl (Tamsulosin Hcl 0.4 Mg Cap) 0.8 mg PO [facility] Stop: 08/29/22 08:59 Last Admin: 08/03/22 08:50 Dose: 0.8 mg Warfarin Sodium (Warfarin Sod 2.5 Mg Tab) 2.5 mg PO SuTuWeThFrSa@1600 [facility] Stop: 08/30/22 15:59 Last Admin: 08/02/22 15:46 Dose: 2.5 mg Warfarin Sodium (Warfarin Sod 5 Mg Tab) 5 mg PO Mo@1600 [facility] Stop: 09/02/22 15:59
[2022-08-03] MEDS ORDERED: WARFARIN SOD 2.5 MG TAB PO ONE (16:30)
[2022-08-03] MEDS: ATORVASTATIN 40 MG TAB PO SCH (17:11)
[2022-08-04] MEDS: ACETAMINOPHEN 1,000 MG/100 ML VIAL IV PRN ×3 (03:45→21:39)
[2022-08-04] MEDS: PROMETHAZINE HCL 25 MG in SODIUM CHLORIDE 0.9% 50 ML IV PRN ×3 (04:32→18:17)
[2022-08-04 06:19] LABS: INR 1.9 (0.9-1.1); Prothrombin Time 19.8 Seconds (9.0-12.0)
[2022-08-04] MEDS: PANTOprazole 40 MG TAB PO SCH (06:35)
[2022-08-04] MEDS: POLYETHYLENE (MIRALAX) 17 GM PACK PO SCH (09:01)
[2022-08-04] MEDS: FLUTICASONE PROPIONATE NA SPR 16 GM BTL NAE SCH (09:02)
[2022-08-04] MEDS: NICOTINE 21 MG/24 HR TDSY TD SCH (09:02)
[2022-08-04] MEDS: CYCLOBENZAPRINE HCL 10 MG TAB PO PRN ×2 (09:04→20:51)
[2022-08-04] MEDS: buprenorphine HCL 8 MG SUBL SL SCH ×3 (09:04→20:37)
[2022-08-04] MEDS: POTASSIUM CHLORIDE CRTAB 20 MEQ TABCR PO SCH ×2 (09:04→20:45)
[2022-08-04] MEDS: predniSONE 20 MG TAB PO SCH (09:05)
[2022-08-04] MEDS: MAGNESIUM OXIDE 400 MG TAB PO SCH (09:05)
[2022-08-04] MEDS: LORazepam 0.5 MG TAB PO PRN ×2 (09:05→20:51)
[2022-08-04] MEDS: TAMSULOSIN HCL 0.4 MG CAP PO SCH (09:05)
[2022-08-04] MEDS: ISOSORBIDE DINITRATE 10 MG TAB PO SCH (09:06)
[2022-08-04] MEDS: FINASTERIDE 5 MG TAB PO SCH (09:06)
[2022-08-04] MEDS: FERROUS SULFATE 325 MG TAB PO SCH (09:06)
[2022-08-04] MEDS: ASPIRIN 81 MG ECTAB PO SCH (09:06)
[2022-08-04] MEDS: FOLIC ACID 1 MG TAB PO SCH (09:07)
[2022-08-04] MEDS: SPIRONOLACTONE 25 MG TAB PO SCH (09:07)
[2022-08-04] MEDS: ISOSORBIDE DINITRATE 20 MG TAB PO SCH (09:07)
[2022-08-04] MEDS: ATORVASTATIN 40 MG TAB PO SCH (09:08)
[2022-08-04] MEDS: guaiFENesin 600 MG TABCR PO SCH ×2 (09:08→20:40)
[2022-08-04] MEDS: METOPROLOL SUCC 25MG EXT REL TAB PO SCH ×2 (09:08→20:39)
[2022-08-04] MEDS: DOCUSATE SODIUM 100 MG CAP PO SCH ×2 (09:09→20:40)
[2022-08-04] MEDS: GABAPENTIN 800 MG TAB PO SCH ×3 (09:09→20:40)
[2022-08-04] MEDS: DULoxetine HCL 60 MG CAP PO SCH (09:10)
[2022-08-04] MEDS: FAMOTIDINE 20 MG TAB PO SCH (09:10)
[2022-08-04] MEDS: FUROSEMIDE 40 MG/4 ML VIAL IV SCH ×2 (09:11→16:49)
[2022-08-04] MEDS: SODIUM CHLORIDE 0.65% NA SOLN 45 ML (OCEAN) SCH ×2 (09:11→20:45)
[2022-08-04] MEDS: INSULIN ASPART PER UNIT SC SCH ×4 (09:19→20:41)
[2022-08-04] MEDS: LANTUS PER UNIT CHARGE SQ SCH ×2 (09:20→20:41)
--- NOTE | 2022-08-04 15:15 | Hospitalist Progress Note ---
Date of Service August 04, 2022 Assessment & Plan (1) Chest pain: Plan: History CAD Patient is 52 y/o M with PMH DM II, HTN, H/O PE, on Coumadin, diastolic CHF, chronic back pain, COPD, urinary retention with chronic Lloyd, depression, anxiety, h/o subdural hematoma, SAH, STEMI, history of recurrent hospitalizations presented to ER with c/o chest pain since yesterday not relieved with nitro In ER vitals stable. EKG without acute ST elevation. Initial high-sensitivity troponin: 3.8 Likely atypical chest pain History Echo 05/22/2022: EF: 60-65%, no wall motion abnormality, grade 2 diastolic dysfunction Will hold on additional echo currently Trend troponin Continue aspirin, atorvastatin, metoprolol, isosorbide If troponins uptrending consider cardiology consult No more chest pain and her troponins are unremarkable for any ACS We will get PT and OT evaluation-appreciate PT and OT evaluation and recommended home Will be discharged home tomorrow COPD (chronic obstructive pulmonary disease): Chronic wheezing Recently treated outpatient with Augmentin and prednisone course for reported productive cough. Patient reports decreased cough since treatment Will hold on further antibiotics and steroids at this time Uses 4 L oxygen at bedtime Scheduled Duonebs Continue home inhalers Worsening cough with wheezing-we will start Solu-Medrol 40 mg twice daily Sputum culture-moderate normal isabel final report to follow Minimal wheezing at rest and denies any shortness of breath with ambulation Sputum came back positive for haemophilus likely colonization without any symptoms and will not be treated Will DC Solu-Medrol and start prednisone from tomorrow Has been on oral prednisone of 40 mg from today and will have rapid tapering on discharge tomorrow Has pain in the feet with abnormalities in the nails Asking for podiatry evaluation Consult has been placed Appreciate sheriff's detective input and recommendation Diabetic shoes will be provided Will see sheriff's detective as an outpatient on -he is very excited about having surgery as he was told by the sheriff's detective (2) Acute on chronic diastolic (congestive) heart failure: Plan: Reports 30 pound weight gain and bilateral lower extremity edema x2 weeks BNP: 32 In ER given Lasix 40 mg IV Hold home Lasix and convert to IV Continue spironolactone Monitor I's and O's, daily weight, low-sodium diet, fluid restriction Has been diuresing enough and so far negative balance is more than 2 L We will continue diuresing-has had -5 L so far Will increase the dose of Lasix to 80 mg twice daily Has been diuresing enough and has a negative balance of more than 7 L as of 08/01/2022 Kidney function remains stable and will continue current doses of Lasix Has had more than 22 L of negative balance We will continue Lasix IV for now and then back to oral doses on discharge tomorrow We will check PRP tomorrow BPH History urinary retention Chronic Lloyd Catheter Bladder scan as needed Continue tamsulosin, finasteride Lloyd catheter has not been changed for a long time-urine is very dirty Will insert new Lloyd and send urine for UA and culture if needed UA has been negative for any infection-urine culture is growing lactobacillus species History PE Supratherapeutic INR On chronic Coumadin INR: 5.8 Hold Coumadin INR in a.m.-improved to's 4.6 INR is 2.7 today and restart Coumadin INR is 1.9 History obesity hypoventilation syndrome Uses 4 L oxygen at bedtime and as needed DM type 2 (diabetes mellitus, type 2): A1c: 7.4 on 04/08/2022 Hold home meds Basal bolus insulin per protocol Chronic pain: Continue gabapentin, buprenorphine Morbid obesity: BMI: 59.8 Lifestyle modifications recommended DVT Prophylaxis On Coumadin. INR: Currently supratherapeutic INR is subtherapeutic at 1.2 Back to his usual dose of Coumadin from today Discharge tomorrow Admission and Anticipated Discharge Date Admission Date: July 29, 2022 Subjective 07/30/2022 The patient was seen and examined in medical telemetry unit He has been feeling better since admission Denies any significant symptoms, no more chest pain, no fever and or chills and no problem with urine 07/31/2022 The patient was seen and examined in medical telemetry unit He has been complaining of cough with productive of yellowish phlegm and more wheezing Denies any fever and or chills Wanted to have medications for probable COPD exacerbation 08/01/2022 Patient was seen and examined in medical telemetry unit He has been stable and feeling much better No shortness of breath at rest but he still has wheezing Weight has been reduced but has negative balance of more than 7 L Wants to have podiatry consult 08/02/2022 The patient was seen and examined in medical telemetry unit He has been stable and feeling much better Still has wheezing without any shortness of 08/03/2022 The patient was seen and examined in medical telemetry unit He has been stable and complains of minimal wheezing Has lost more than 18 L of fluid since admission No fever and or chills 08/04/2022 The patient was seen and examined in medical telemetry unit He has been feeling much better and denies any significant symptoms No wheezing and/or shortness of breath Diuresing enough and so far 22 L of negative balance Discharge tomorrow Review of Systems Review of Systems: All systems reviewed and are unremarkable except as noted below Respiratory: No shortness of breath at rest and wheezing has been improved Physical Exam Physical Exam: Sitting on a chair without any acute distress Constitutional: well developed, well nourished, + ill appearing and + morbidly obese Eyes: PERRL, conjunctivae normal, anicteric sclerae ENMT: external ear and nose normal, oropharynx normal Neck: trachea midline, no thyromegaly Respiratory: no respiratory distress Auscultation: + diminished lung sounds, + crackles (At the bases) and + wheezes Cardiovascular: Rate/Rhythm: regular rate and regular rhythm; not tachycardic Heart Sounds: normal S1, normal S2 and + murmur Extremities: + edema (Improved a lot and has trace to 1+ edema bilaterally) Gastrointestinal (Abdomen): Inspection/Auscultation: normal bowel sounds; abdomen not distended Percussion/Palpation: abdomen soft; abdomen nontender Neurologic: normal touch/pain/proprioception and moves all extremities; no focal motor deficits Psychiatric: A+Ox3, euthymic affect Lymphatic: no cervical or axillary lymphadenopathy Results & Data Results & Data ([facility]) Vital Signs (Past 12 Hours) Vital Signs Temp Pulse Pulse Resp BP Pulse Ox O2 Del Method 08/04/22 14:46 66 08/04/22 11:07 36.8 C 82 20 143/74 H 93 Room Air 08/04/22 07:41 36.7 C 63 20 149/91 H 99 Nasal Cannula 08/04/22 07:13 59 L 08/04/22 04:55 Nasal Cannula 08/04/22 03:39 36.3 C L 75 18 144/77 H 95 Nasal Cannula O2 Flow Rate 08/04/22 14:46 08/04/22 11:07 08/04/22 07:41 4 08/04/22 07:13 08/04/22 04:55 4 08/04/22 03:39 2 Medications Administered Current Inpatient Medications Albuterol (Albuterol Hfa 8 Gm Inhaler) 2 puffs INH Q4R PRN PRN Reason: Shortness Of Breath Or Wheezing Stop: 08/29/22 20:10 Albuterol (Albut/Ipratrop 3mg/0.5mg Neb 3 Ml Vial) 3 ml NEB QIDR PRN; Protocol PRN Reason: Wheezing Stop: 08/28/22 18:59 Aspirin (Aspirin 81 Mg Ectab) 81 mg PO QAM EMPERATRIZ Stop: 08/29/22 08:59 Last Admin: 08/04/22 09:06 Dose: 81 mg Atorvastatin Calcium (Atorvastatin 40 Mg Tab) 80 mg PO DAILY@1400 EMPERATRIZ Stop: 08/29/22 13:59 Last Admin: 08/04/22 09:08 Dose: 80 mg Benzonatate (Benzonatate 100 Mg Capsule) 100 mg PO TID PRN PRN Reason: cough Stop: 08/28/22 16:53 Last Admin: 07/31/22 03:38 Dose: 100 mg Buprenorphine HCl (Buprenorphine Hcl 8 Mg Subl) 8 mg SL TID EMPERATRIZ Stop: 08/28/22 20:59 Last Admin: 08/04/22 14:00 Dose: 8 mg Cyclobenzaprine HCl (Cyclobenzaprine Hcl 10 Mg Tab) 10 mg PO BID PRN PRN Reason: Muscle Spasm Stop: 08/29/22 20:11 Last Admin: 08/04/22 09:04 Dose: 10 mg Dextrose (Dextrose 50% 50 Ml Syringe) 25 - 50 ml IV UD PRN; Protocol PRN Reason: Hypoglycemia Protocol Stop: 08/28/22 16:53 Diclofenac Sodium (Diclofenac Sod 1% Gel 100 Gm Tube) 2 gm EXT BID PRN; Protocol PRN Reason: Pain Stop: 09/01/22 21:59 Last Admin: 08/03/22 13:33 Dose: 2 gm Docusate Sodium (Docusate Sodium 100 Mg Cap) 100 mg PO BID EMPERATRIZ Stop: 08/28/22 20:59 Last Admin: 08/04/22 09:09 Dose: 100 mg Duloxetine HCl (Duloxetine Hcl 60 Mg Cap) 60 mg PO DAILY EMPERATRIZ Stop: 08/29/22 08:59 Last Admin: 08/04/22 09:10 Dose: 60 mg Famotidine (Famotidine 20 Mg Tab) 20 mg PO DAILY EMPERATRIZ Stop: 08/29/22 08:59 Last Admin: 08/04/22 09:10 Dose: 20 mg Ferrous Sulfate (Ferrous Sulfate 325 Mg Tab) 325 mg PO DAILY@0800 EMPERATRIZ Stop: 08/29/22 07:59 Last Admin: 08/04/22 09:06 Dose: 325 mg Finasteride (Finasteride 5 Mg Tab) 5 mg PO QAM EMPERATRIZ Stop: 08/29/22 08:59 Last Admin: 08/04/22 09:06 Dose: 5 mg Fluticasone Propionate (Fluticasone Propionate Na Spr 16 Gm Btl) 2 sprays HANSA DAILY EMPERATRIZ Stop: 08/29/22 08:59 Last Admin: 08/04/22 09:02 Dose: 2 sprays Folic Acid (Folic Acid 1 Mg Tab) 1 mg PO QAM EMPERATRIZ Stop: 08/29/22 08:59 Last Admin: 08/04/22 09:07 Dose: 1 mg Furosemide (Furosemide 40 Mg/4 Ml Vial) 80 mg IV BID17 EMPERATRIZ Stop: 08/30/22 16:59 Last Admin: 08/04/22 09:11 Dose: 80 mg Gabapentin (Gabapentin 800 Mg Tab) 800 mg PO TID EMPERATRIZ Stop: 08/28/22 20:59 Last Admin: 08/04/22 14:00 Dose: 800 mg Glucagon (Glucagon For Inj 1 Mg Vial) 1 mg SQ UD PRN; Protocol PRN Reason: Hypoglycemia Protocol Stop: 08/28/22 16:53 Glucose (Glucose 40% Gel 15 Gm Tube) 15 - 30 gm PO UD PRN; Protocol PRN Reason: Hypoglycemia Protocol Stop: 08/28/22 16:53 Glucose (Glucose 10 Tab/Tube) 4 - 8 tab PO UD PRN; Protocol PRN Reason: Hypoglycemia Treatment Stop: 08/28/22 16:53 Guaifenesin (Guaifenesin 600 Mg Tabcr) 1,200 mg PO BID [facility] Stop: 08/28/22 20:59 Last Admin: 08/04/22 09:08 Dose: 1,200 mg Promethazine HCl 25 mg/ Sodium (Chloride) 51 mls @ 204 mls/hr IV Q6H PRN PRN Reason: Nausea And Vomiting Stop: 08/31/22 13:32 Last Infusion: 08/04/22 12:05 Dose: Infused Acetaminophen (Ofirmev) 1,000 mg in 100 mls @ 400 mls/hr IV Q8H PRN PRN Reason: Pain Stop: 08/05/22 12:01 Last Infusion: 08/04/22 13:17 Dose: Infused Insulin Aspart (Insulin Aspart Per Unit) 0 units SC ACHS EMPERATRIZ Stop: 08/28/22 20:59 Last Admin: 08/04/22 12:37 Dose: 31 units Insulin Glargine (Lantus Per Unit Charge) 0 - 25 units SQ BID EMPERAT[facility]Z Stop: 08/28/22 20:59 Last Admin: 08/04/22 09:20 Dose: 25 units Isosorbide Dinitrate (Isosorbide Dinitrate 20 Mg Tab) 20 mg PO DAILY [facility] Stop: 08/29/22 08:59 Last Admin: 08/04/22 09:07 Dose: 20 mg Isosorbide Dinitrate (Isosorbide Dinitrate 10 Mg Tab) 10 mg PO DAILY [facility] Stop: 08/29/22 08:59 Last Admin: 08/04/22 09:06 Dose: 10 mg Lidocaine HCl (Lidocaine 2% Jelly 5 Ml Tube) 1 ml EXT PRN PRN PRN Reason: Catheter insertion Stop: 08/29/22 13:44 Last Admin: 07/30/22 13:56 Dose: 1 ml Lorazepam (Lorazepam 0.5 Mg Tab) 0.5 mg PO Q8H PRN PRN Reason: Anxiety Stop: 08/28/22 16:53 Last Admin: 08/04/22 09:05 Dose: 0.5 mg Magnesium Oxide (Magnesium Oxide 400 Mg Tab) 400 mg PO DAILY EMPERATRIZ Stop: 08/29/22 08:59 Last Admin: 08/04/22 09:05 Dose: 400 mg Metoprolol Succinate (Metoprolol Succ 25mg Ext Rel Tab) 75 mg PO BID [facility] Stop: 08/28/22 20:59 Last Admin: 08/04/22 09:08 Dose: 75 mg Miscellaneous (Carbohydrates For Hypoglycemia ) 15 - 30 gm PO UD PRN PRN Reason: Hypoglycemia Protocol Stop: 08/28/22 16:53 Miscellaneous (Remove Nicoderm Patch) 1 each N/A DAILY@0859 [facility] Stop: 08/29/22 08:58 Last Admin: 08/04/22 09:02 Dose: 1 each Nicotine (Nicotine 21 Mg/24 Hr Tdsy) 21 mg TD QAM [facility] Stop: 08/28/22 17:29 Last Admin: 08/04/22 09:02 Dose: 21 mg Nystatin (Nystatin Powder 15gm Btl) 1 appln EXT TID PRN PRN Reason: Skin Irritation Stop: 08/28/22 16:53 Last Admin: 07/30/22 20:38 Dose: 1 appln Pantoprazole Sodium (Pantoprazole 40 Mg Tab) 40 mg PO DAILYBB [facility]; Protocol Stop: 08/29/22 06:29 Last Admin: 08/04/22 06:35 Dose: 40 mg Polyethylene Glycol (Polyethylene (Miralax) 17 Gm Pack) [facility]: 08/29/22 08:59 Last Admin: 08/04/22 09:01 Dose: 17 gm Potassium Chloride (Potassium Chloride Crtab 20 Meq Tabcr) 20 meq PO BID [facility] Stop: 08/28/22 20:59 Last Admin: 08/04/22 09:04 Dose: 20 meq Prednisone (Prednisone 20 Mg Tab) 40 mg PO DAILY [facility] Stop: 09/03/22 08:59 Last Admin: 08/04/22 09:05 Dose: 40 mg Sennosides (Senna 8.6 Mg Tab) 8.6 mg PO DAILY PRN PRN Reason: Constipation Stop: 08/28/22 16:53 Last Admin: 07/30/22 09:07 Dose: 8.6 mg Sodium Chloride (Sodium Chloride 0.65% Na Soln 45 Ml ([place])) 2 sprays NA BID [facility] Stop: 08/30/22 20:59 Last Admin: 08/04/22 09:11 Dose: 2 sprays Sodium Chloride (Sodium Chloride 0.65% Na Soln 45 Ml ([place])) 2 sprays NA NOW PRN PRN Reason: Dryness Stop: 08/30/22 12:29 Last Admin: 07/31/22 14:24 Dose: 2 sprays Spironolactone (Spironolactone 25 Mg Tab) 25 mg PO QAM [facility] Stop: 08/29/22 08:59 Last Admin: 08/04/22 09:07 Dose: 25 mg Tamsulosin HCl (Tamsulosin Hcl 0.4 Mg Cap) 0.8 mg PO QAM [facility] Stop: 08/29/22 08:59 Last Admin: 08/04/22 09:05 Dose: 0.8 mg Warfarin Sodium (Warfarin Sod 2.5 Mg Tab) 2.5 mg PO [id number]@1600 [facility] Stop: 08/30/22 15:59 Last Admin: 08/02/22 15:46 Dose: 2.5 mg Warfarin Sodium (Warfarin Sod 5 Mg Tab) 5 mg PO Mo@1600 [facility] Stop: 09/02/22 15:59 Last Admin: 08/03/22 17:11 Dose: 5 mg
[2022-08-04] MEDS: WARFARIN SOD 2.5 MG TAB PO SCH (16:49)
[2022-08-05] MEDS: PANTOprazole 40 MG TAB PO SCH (06:28)
[2022-08-05 07:25] LABS: INR 2.1 (0.9-1.1); Prothrombin Time 21.5 Seconds (9.0-12.0)
[2022-08-05 07:28] LABS: BUN Creatinine Ratio 30.5 (10-20); Calcium 10.3 mg/dl (8.5-10.1); Creatinine Clr Calc Pharmacy 145.9 ml/min; Est GFR (African American) 94.1 ml/min; Est GFR (Non-African American) 81.2 ml/min; Potassium 3.7 mmol/L (3.5-5.1)
[2022-08-05] MEDS: FOLIC ACID 1 MG TAB PO SCH (08:22)
[2022-08-05] MEDS: ASPIRIN 81 MG ECTAB PO SCH (08:23)
[2022-08-05] MEDS: POTASSIUM CHLORIDE CRTAB 20 MEQ TABCR PO SCH (08:23)
[2022-08-05] MEDS: DOCUSATE SODIUM 100 MG CAP PO SCH (08:23)
[2022-08-05] MEDS: guaiFENesin 600 MG TABCR PO SCH (08:23)
[2022-08-05] MEDS: NICOTINE 21 MG/24 HR TDSY TD SCH (08:23)
[2022-08-05] MEDS: GABAPENTIN 800 MG TAB PO SCH ×2 (08:24→13:03)
[2022-08-05] MEDS: ISOSORBIDE DINITRATE 10 MG TAB PO SCH (08:24)
[2022-08-05] MEDS: FLUTICASONE PROPIONATE NA SPR 16 GM BTL NAE SCH (08:24)
[2022-08-05] MEDS: FUROSEMIDE 40 MG/4 ML VIAL IV SCH (08:24)
[2022-08-05] MEDS: FERROUS SULFATE 325 MG TAB PO SCH (08:25)
[2022-08-05] MEDS: DULoxetine HCL 60 MG CAP PO SCH (08:25)
[2022-08-05] MEDS: predniSONE 20 MG TAB PO SCH (08:25)
[2022-08-05] MEDS: ISOSORBIDE DINITRATE 20 MG TAB PO SCH (08:25)
[2022-08-05] MEDS: METOPROLOL SUCC 25MG EXT REL TAB PO SCH (08:25)
[2022-08-05] MEDS: MAGNESIUM OXIDE 400 MG TAB PO SCH (08:25)
[2022-08-05] MEDS: FAMOTIDINE 20 MG TAB PO SCH (08:25)
[2022-08-05] MEDS: TAMSULOSIN HCL 0.4 MG CAP PO SCH (08:25)
[2022-08-05] MEDS: POLYETHYLENE (MIRALAX) 17 GM PACK PO SCH (08:26)
[2022-08-05] MEDS: FINASTERIDE 5 MG TAB PO SCH (08:26)
[2022-08-05] MEDS: SPIRONOLACTONE 25 MG TAB PO SCH (08:26)
[2022-08-05] MEDS: LORazepam 0.5 MG TAB PO PRN (08:41)
[2022-08-05] MEDS: CYCLOBENZAPRINE HCL 10 MG TAB PO PRN (08:41)
[2022-08-05] MEDS: ACETAMINOPHEN 1,000 MG/100 ML VIAL IV PRN (08:42)
[2022-08-05] MEDS: INSULIN ASPART PER UNIT SC SCH ×2 (08:50→11:48)
[2022-08-05] MEDS: SODIUM CHLORIDE 0.65% NA SOLN 45 ML (OCEAN) SCH (08:53)
[2022-08-05] MEDS: buprenorphine HCL 8 MG SUBL SL SCH ×2 (08:54→13:03)
[2022-08-05] MEDS: LANTUS PER UNIT CHARGE SQ SCH (08:55)
[2022-08-05] MEDS: PROMETHAZINE HCL 25 MG in SODIUM CHLORIDE 0.9% 50 ML IV PRN (10:07)
[2022-08-05] MEDS: ATORVASTATIN 40 MG TAB PO SCH (13:03)
--- NOTE | 2022-08-05 16:15 | Hospitalist Progress Note ---
Date of Service August 05, 2022 Assessment & Plan (1) Acute on chronic diastolic (congestive) heart failure: (2) Atypical chest pain: Plan: per Dr Vasquez's notes with addendum: (1) Chest pain: Plan: History CAD Patient is 52 y/o M with PMH DM II, HTN, H/O PE, on Coumadin, diastolic CHF, chronic back pain, COPD, urinary retention with chronic Lloyd, depression, anxiety, h/o subdural hematoma, SAH, STEMI, history of recurrent hospi talizations presented to ER with c/o chest pain since yesterday not relieved with nitro In ER vitals stable. EKG without acute ST elevation. Initial high-sensitivity troponin: 3.8 Likely atypical chest pain History Echo 05/22/2022: EF: 60-65%, no wall motion abnormality, grade 2 diastolic dysfunction Acute coronary syndrome ruled out Chest pain resolved Continue aspirin, atorvastatin, metoprolol, isosorbide COPD (chronic obstructive pulmonary disease): Chronic wheezing Recently treated outpatient with Augmentin and prednisone course for reported productive cough. Patient reports decreased cough since treatment Worsening cough with wheezing-we will start Solu-Medrol 40 mg twice daily Sputum culture-moderate normal isabel final report to follow Sputum came back positive for haemophilus likely colonization without any symptoms and will not be treated Given Solu-Medrol Wheezing mostly resolved Discharged on prednisone taper Has pain in the feet with abnormalities in the nails Asking for podiatry evaluation Consult has been placed Diabetic shoes will be provided Will see adult neuropsychologist as an outpatient on (2) Acute on chronic diastolic (congestive) heart failure: Plan: Reports 30 pound weight gain and bilateral lower extremity edema x2 weeks BNP: 32 Patient given Lasix IV 80 mg twice daily Diuresed well, -28 L Resume usual Lasix Reemphasized fluid restriction, sodium restriction BPH History urinary retention Chronic Lloyd Catheter Bladder scan as needed Continue tamsulosin, finasteride Lloyd catheter has not been changed for a long time-urine is very dirty Catheter changed UA has been negative for any infection-urine culture is growing lactobacillus species History PE Supratherapeutic INR On chronic Coumadin INR 2.1 Resume usual Coumadin dose History obesity hypoventilation syndrome Uses 4 L oxygen at bedtime and as needed DM type 2 (diabetes mellitus, type 2): A1c: 7.4 on 04/08/2022 Resume usual regimen at home Chronic pain: Continue gabapentin, buprenorphine Morbid obesity: BMI: 59.8 Lifestyle modifications recommended Anxiety Worse due to family issues at home Requesting 2 days of Ativan p.o. PDMP queried, No issues noted Disposition Discharge to home today Follow-up with PCP in 1 week Follow-up with adult neuropsychologist this week as scheduled plan of care discussed with patient in detail and at length all questions answered He is understanding, agreeable, comfortable with the plan of care Admission and Anticipated Discharge Date Admission Date: July 29, 2022 Subjective Follow-up for acute CHF exacerbation, COPD exacerbation, etc. Seen with ALEXANDER Caban at the bedside throughout whole encounter States he feels better overall No shortness of breath, has minimal cough, nonproductive, no chest pain Reports feeling anxious due to family issues at home-requesting 2-day supply of Ativan Denies any other symptoms States that he is ready and would like to be discharged today Review of Systems Review of Systems: all noted and negative except for above Physical Exam Physical Exam: General- oriented x 3, not in distress, speaks in sentences with no effort or accessory muscle use Eyes- anicteric Neck- no JVD Lungs-intermittent faint wheezes bilaterally, no rales/wheezes Heart- normal rate, regular rhythm; no murmurs Abdomen- normal bowel sounds, nondistended, soft, nontender Lloyd catheter in place-draining yellow urine Extremities-trace pretibial edema, no calf tenderness Neuro- alert, oriented x 3; no gross focal neurologic deficits Skin- warm & dry Results & Data Results & Data ([facility]) Vital Signs (Past 12 Hours) Vital Signs Temp Pulse Pulse Resp BP BP Pulse Ox 08/05/22 13:53 37.3 C 93 H 19 143/83 H 137/71 90 08/05/22 07:30 57 L 08/05/22 11:36 37.3 C 93 H 19 137/71 90 08/05/22 07:30 08/05/22 07:45 36.7 C 70 19 143/83 H 94 O2 Del Method O2 Flow Rate 08/05/22 13:53 08/05/22 07:30 08/05/22 11:36 Room Air 08/05/22 07:30 Room Air 08/05/22 07:45 Nasal Cannula 4 all noted and reviewed including below
--- NOTE | 2022-08-05 16:25 | Discharge Summary ---
Discharge Summary Date of Service August 05, 2022 Notes For Next Care Provider Medication Changes From Visit Prednisone taper Admission HPI Per Admitting Provider Patient is 52 y/o M with PMH DM II, HTN, H/O PE, on Coumadin, diastolic CHF, chronic back pain, COPD, urinary retention with chronic Lloyd, depression, anxiety, h/o subdural hematoma, SAH, STEMI, history of recurrent hospitalizations presented to ER with c/o chest pain and BLE edema and weight gain. Patient states yesterday started with left-sided sharp chest pain that sometimes radiates to left arm. Today he took 3 nitro without any relief. Patient states has been having exertional shortness of breath 3 weeks. He states he had cough sometimes productive however he did not look at his sputum color. Reports PCP started him on Augmentin and prednisone course which he finished. States cough improved, still has lingering cough. Patient reports a 30 pound weight gain over the past 2 weeks and noticed increased lower extremity edema. Sleeps with head elevated at baseline. Also reports some nausea, he is worried he may have a UTI. Unsure if changes of urine color in Lloyd bag. Uses 4L oxygen HS. Patient had his INR of 5.8 yesterday and was to hold his Coumadin last night and today. Patient states did not have any medications last night or today. Denies fever/chills, diaphoresis, V/D/C, BURNETTE, dizziness, syncope, falls, vision changes, neck pain, palpitations, hemoptysis, sore throat, choking, otalgia, rhinorrhea, abdominal pain, paresthesias, weakness, rashes. Admission Exam Per Admitting Provider General: no distress, obese Head: normocephalic, atraumatic Eyes: conjunctiva non-injected, anicteric ENT: normal inspection external ears, nose, mucous membranes moist Neck: supple, trachea midline Lungs: no respiratory distress, +diffuse wheezing throughout without rhonchi/rales CV: RRR, no murmur, +large bilateral lower extremities with 1+pitting edema Abd: +protuberant, normal BS, soft, non-tender Ext: no cyanosis, no calf tenderness Neuro: A&O x 3, no focal deficits noted, normal affect Skin: warm, dry Principal Dx & Hospital Course #1 = Principal Diagnosis (1) Acute on chronic diastolic (congestive) heart failure: (2) Atypical chest pain: per Dr Vasquez's notes with addendum: (1) Chest pain: Plan: History CAD Patient is 52 y/o M with PMH DM II, HTN, H/O PE, on Coumadin, diastolic CHF, chronic back pain, COPD, urinary retention with chronic Lloyd, depression, anxiety, h/o subdural hematoma, SAH, STEMI, history of recurrent hospitalizations presented to ER with c/o chest pain since yesterday not relieved with nitro In ER vitals stable. EKG without acute ST elevation. Initial high-sensitivity troponin: 3.8 Likely atypical chest pain History Echo 05/22/2022: EF: 60-65%, no wall motion abnormality, grade 2 diastolic dysfunction Acute coronary syndrome ruled out Chest pain resolved Continue aspirin, atorvastatin, metoprolol, isosorbide COPD (chronic obstructive pulmonary disease): Chronic wheezing Recently treated outpatient with Augmentin and prednisone course for reported productive cough. Patient reports decreased cough since treatment Worsening cough with wheezing-we will start Solu-Medrol 40 mg twice daily Sputum culture-moderate normal isabel final report to follow Sputum came back positive for haemophilus likely colonization without any symptoms and will not be treated Given Solu-Medrol Wheezing mostly resolved Discharged on prednisone taper Has pain in the feet with abnormalities in the nails Asking for podiatry evaluation Consult has been placed Diabetic shoes will be provided Will see fun house operator as an outpatient on (2) Acute on chronic diastolic (congestive) heart failure: Plan: Reports 30 pound weight gain and bilateral lower extremity edema x2 weeks BNP: 32 Patient given Lasix IV 80 mg twice daily Diuresed well, -28 L Resume usual Lasix Reemphasized fluid restriction, sodium restriction BPH History urinary retention Chronic Lloyd Catheter Bladder scan as needed Continue tamsulosin, finasteride Lloyd catheter has not been changed for a long time-urine is very dirty Catheter changed UA has been negative for any infection-urine culture is growing lactobacillus species History PE Supratherapeutic INR On chronic Coumadin INR 2.1 Resume usual Coumadin dose History obesity hypoventilation syndrome Uses 4 L oxygen at bedtime and as needed DM type 2 (diabetes mellitus, type 2): A1c: 7.4 on 04/08/2022 Resume usual regimen at home Chronic pain: Continue gabapentin, buprenorphine Morbid obesity: BMI: 59.8 Lifestyle modifications recommended Anxiety Worse due to family issues at home Requesting 2 days of Ativan p.o. PDMP queried, No issues noted Disposition Discharge to home today Follow-up with PCP in 1 week Follow-up with fun house operator this week as scheduled plan of care discussed with patient in detail and at length all questions answered He is understanding, agreeable, comfortable with the plan of care Discharge Exam General- oriented x 3, not in distress, speaks in sentences with no effort or accessory muscle use Eyes- anicteric Neck- no JVD Lungs-intermittent faint wheezes bilaterally, no rales/wheezes Heart- normal rate, regular rhythm; no murmurs Abdomen- normal bowel sounds, nondistended, soft, nontender Lloyd catheter in place-draining yellow urine Extremities-trace pretibial edema, no calf tenderness Neuro- alert, oriented x 3; no gross focal neurologic deficits Skin- warm & dry Updated Medication List Medication Instructions Recorded Confirmed Type fluticasone propionate 50 2 spray intranasal DAILY 06/01/18 07/29/22 History mcg/actuation nasal spray,suspension aspirin 81 mg tablet,delayed 81 mg PO QAM 11/17/18 07/29/22 History release (Ecotrin Low Strength) nitroglycerin 0.4 mg sublingual 0.4 mg sublingual DIRECTED PRN 12/09/18 07/29/22 History tablet (Nitrostat) CHEST PAIN nystatin 100,000 unit/gram topical 1 applic topical TID PRN Skin 12/09/1806/11 History powder Irritation polyethylene glycol 3350 17 gram 17 g PO QAM 12/09/18 07/29/22 History oral powder packet (Miralax) tiotropium bromide 18 mcg capsule 1 puff inhalation QAM 01/29/19 07/29/22 History with inhalation device (Spiriva with HandiHaler) finasteride 5 mg tablet 5 mg PO QAM 03/03/19 07/29/22 History cyclobenzaprine 10 mg tablet 10 mg PO BID PRN Muscle Spasm 03/10/19 07/29/22 History metoprolol succinate 50 mg 75 mg PO BID 08/01/19 07/29/22 History tablet,extended release 24 hr spironolactone 25 mg tablet 25 mg PO QAM 08/01/19 07/29/22 History docusate sodium 100 mg capsule 100 mg PO BID 08/11/19 07/29/22 History ipratropium 0.5 mg-albuterol 3 mg 3 ml inhalation Q6H PRN Shortness 08/11/19 07/29/22 History (2.5 mg base)/3 mL nebulization Of Breath Or Wheezing soln atorvastatin 80 mg tablet 80 mg PO QPM 12/07/19 07/29/22 History folic acid 1 mg tablet 1 mg PO QAM 12/07/19 07/29/22 History furosemide 40 mg tablet (Lasix) 40 mg PO BID 12/07/19 07/29/22 History sennosides 8.6 mg tablet (senna) 8.6 mg PO DAILY PRN Constipation 12/07/19 07/29/22 History albuterol sulfate 90 mcg/actuation 2 puff inhalation Q4 PRN Dyspnea 02/17/20 07/29/22 History aerosol inhaler omeprazole 20 mg capsule,delayed 20 mg PO DAILYBB 04/14/20 07/29/22 History release gabapentin 800 mg tablet 800 mg PO TID 05/30/20 07/29/22 History duloxetine 60 mg capsule,delayed 60 mg PO DAILY 07/05/20 07/29/22 History release famotidine 20 mg tablet 20 mg PO DAILY 07/05/20 07/29/22 History buprenorphine HCl 8 mg sublingual 8 mg sublingual TID 10/31/20 07/29/22 History tablet glipizide 10 mg tablet 10 mg PO BID 01/12/21 07/29/22 History Lactobacillus acidoph-L.bulgaricus 1 tab PO TID #30 tabs 05/09/21 07/29/22 Rx 1 million cell chewable tablet (Lactinex) ferrous sulfate 325 mg (65 mg 325 mg PO QAM 10/24/21 07/29/22 History iron) tablet hydroxyzine HCl 25 mg tablet 25 mg PO QID PRN Anxiety 10/24/21 07/29/22 History magnesium oxide 400 mg (241.3 mg 400 mg PO DAILY 10/24/21 07/29/22 History magnesium) tablet urea 20 % topical cream 1 applic topical BID Dry Areas on 10/24/21 07/29/22 History (Ureacin-20) Soles and Legs ondansetron HCl 4 mg tablet 4 mg PO Q8H PRN NAUSEA/VOMITING 12/17/21 07/29/22 History benzonatate 100 mg capsule 100 mg PO TID PRN cough #10 caps 01/02/22 07/29/22 Rx metolazone 2.5 mg tablet 2.5 mg PO UD #12 tabs 01/02/22 07/29/22 Rx isosorbide dinitrate 30 mg tablet 30 mg PO DAILY 02/19/22 07/29/22 History tamsulosin 0.4 mg capsule (Flomax) 0.8 mg PO QAM #180 caps 03/10/22 07/29/22 Rx phenazopyridine 200 mg tablet 200 mg PO Q8H PRN pain #15 tabs 05/16/22 07/29/22 Rx (Pyridium) guaifenesin 600 mg tablet, 1,200 mg PO BID 07/29/22 07/29/22 History extended release 12 hr (Mucinex) potassium chloride 20 mEq 20 meq PO BID 07/29/22 07/29/22 History tablet,extended release warfarin 5 mg tablet 2.5 - 5 mg PO UD 07/29/22 07/29/22 History insulin aspart U-100 100 unit/mL 1 unit (0.01 mL) subcut TIDM #30 mL 08/05/22 Rx (3 mL) subcutaneous pen (Novolog Flexpen U-100 Insulin aspart) insulin glargine 100 unit/mL (3 50 unit (0.5 mL) SC HS 30 days #15 08/05/22 Rx mL) subcutaneous pen (Lantus mL Solostar U-100 Insulin) lorazepam 0.5 mg tablet 0.5 mg PO Q8 PRN Anxiety #6 tabs 08/05/22 Rx prednisone 20 mg tablet 20 mg PO UD 4 days #3 tabs 08/05/22 Rx Hospital Stay Data Consultations 07/29/22 15:12 ED Decision to Admit Stat 08/02/22 11:40 Consult Podiatry Routine Procedures Performed CXR COMPARISON: Chest 05/21/2022. FINDINGS: No pneumothorax. Stable blunting of the costophrenic sulci. No new focal lung consolidations identified to suggest a pneumonia. No evidence for pulmonary edema. Mild interstitial thickening persists. The heart remains mildly enlarged. IMPRESSION: No change in the cardiomegaly and mild interstitial thickening. ACT 112: Negative or not required by law. Electronically signed by: Vidal Keller M.D. 07/29/2022 1:59 PM Pending Results Patient Have Any Pending Studies at Discharge: No Discharge Instructions Given to Patient (Per Discharging Provider) PLEASE REFER TO YOUR NEW MEDICATION LIST AND FOLLOW INSTRUCTIONS CAREFULLY. YOUR NEW MEDICATIONS INCLUDE: Prednisone 20 mg/tablet taper to be taken as follows- 1 tablet daily times x2 days, then 1/2 tablet daily x2 days, then stop PLEASE CALL YOUR PRIMARY CARE PHYSICIAN OR RETURN TO THE ER IF WITH WORSENING OF SYMPTOMS, INCLUDING Shortness of breath, cough, fevers or chills, leg swelling, etc. FOLLOW UP WITH PRIMARY CARE PHYSICIAN OUTLINED ABOVE. FOLLOW-UP WITH LINER INSTALLER DR. AG BROWNE TOMORROW SCHEDULED. Total Time Total Time Spent Total Time Spent (In Minutes): >30 minutes
== END 2022-08-05 14:10 | disposition home or self-care (01) | DRG 291 ==
LOC: ED 12:51 → 2W 16:00 → SUATTDRO 16:00 → 2W 16:34

== ENCOUNTER 2022-08-16 15:53 | Inpatient (IN) ==
[2022-08-16 16:52] LABS: Influenza A virus by PCR Negative (Neg); Influenza B virus by PCR Negative (Neg); RSV by PCR Negative (Neg); SARS CoV2 RNA(COVID-19) Ceph NEGATIVE (Negative)
[2022-08-16 17:00] LABS: Basophils # (auto) 0.07 K/uL (0-0.2); Basophils % (auto) 0.4 %; Eosinophils % (auto) 2.3 %; Hematocrit (blood only) 40.1 % (40.1-51.0); Hemoglobin 13.2 g/dl (14.0-18.0); Immature Granulocytes # (auto) 0.08 K/uL (0.00-0.02); Immature Granulocytes % (auto) 0.5 %; Lymphocytes # (auto) 3.25 K/uL (1.2-3.4); Lymphocytes % (auto) 18.7 %; Mean Corpuscular Hemoglobin 27.4 pg (25.0-34.0); Mean Corpuscular Hgb Conc 32.9 g/dL (32.0-36.0); Mean Corpuscular Volume 83.4 fL (80.0-100.0); Mean Platelet Volume 10.5 fL (9.4-12.4); Monocytes # (auto) 1.35 K/uL (0.24-0.82); Monocytes % (auto) 7.8 %; Neutrophils # (auto) 12.23 K/uL (1.4-6.5); Neutrophils % (auto) 70.3 %; Platelet Count 233 K/uL (130-400); RDW Coefficient of Variation 16.8 % (11.5-14.5); RDW Standard Deviation 50.9 fL (36.4-46.3); Red Blood Count 4.81 M/uL (4.63-6.08); White Blood Count 17.38 K/ul (4.8-10.8)
[2022-08-16] MEDS ORDERED: ALBUT/IPRATROP 3MG/0.5MG NEB 3 ML VIAL NEB STA (17:01)
[2022-08-16 17:16] LABS: Appearance Urine Clear (Clear); Bacteria Urine Automated 1+ (Negative); Bilirubin Urine Negative (Negative); Blood Urine 2+ (Negative); Color Urine Yellow; Glucose Urine UA Negative (Negative); Ketones Urine Negative (Negative); Leukocyte Esterase Urine 2+ (Negative); Nitrite Urine Negative (Negative); Protein Urine Negative (Negative); RBC Urine Automated >30 /hpf (0-4); Urobilinogen Urine Negative (Negative)
[2022-08-16 17:26] LABS: Albumin Globulin Ratio 1.1 (0.9-2); Albumin Level 3.5 gm/dl (3.4-5.0); BUN Creatinine Ratio 17.1 (10-20); Bilirubin,Total 0.7 mg/dl (0.2-1.0); Calcium 8.9 mg/dl (8.5-10.1); Creatinine Clr Calc Pharmacy 144.2 ml/min; Est GFR (African American) 94.1 ml/min; Est GFR (Non-African American) 81.2 ml/min; Globulin 3.3 gm/dl (2.5-4.0); Magnesium 1.6 mg/dl (1.7-2.4); Potassium 3.2 mmol/L (3.5-5.1); Total Protein 6.8 gm/dl (6.0-8.3)
[2022-08-16 17:27] LABS: Troponin I High Sensitivity 5.6 pg/ml (0-20)
--- NOTE | 2022-08-16 17:27 | XRay Report ---
XR chest 1V portable HISTORY: 52 years-old Male Dyspnea acute shortness of breath COMPARISON: Chest radiograph 07/29/2022 TECHNIQUE: AP view of the chest FINDINGS: Cardiac silhouette is enlarged. Poorly vascular congestion with interstitial coarsening. No pneumotho rax. Trace pleural effusions with mild bibasilar atelectasis. Bones appear grossly intact. IMPRESSION: 1. Cardiomegaly with suggestion of mild pulmonary edema. 2. Probable trace pleural effusions. ACT 112: Negative or not required by law. The above report was generated using voice recognition software. It may contain grammatical, syntax o r spelling errors. Electronically signed by: Shelton Apodaca M.D. 08/16/2022 5:26 PM
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
[2022-08-16] MEDS ORDERED: HYDROmorphone INJ 0.5 MG/0.5 ML SYR IV STA (23:50)
[2022-08-17] MEDS ORDERED: PHENAZOPYRIDINE HCL 200 MG TAB PO PRN (02:15)
[2022-08-17] MEDS ORDERED: POLYETHYLENE (MIRALAX) 17 GM PACK PO PRN (02:15)
[2022-08-17] MEDS ORDERED: ALBUT/IPRATROP 3MG/0.5MG NEB 3 ML VIAL INH PRN (02:15)
[2022-08-17] MEDS ORDERED: NITROGLYCERIN SL 0.4 MG/TAB TAB SL PRN ×2 (02:15)
[2022-08-17] MEDS ORDERED: ONDANSETRON 4 MG OD TAB PO PRN (02:15)
[2022-08-17] MEDS ORDERED: ACETAMINOPHEN 325 MG TAB PO PRN (02:15)
[2022-08-17] MEDS ORDERED: POTASSIUM CHLORIDE 20 MEQ/15 ML UDC PO STA (02:15)
[2022-08-17] MEDS ORDERED: NYSTATIN POWDER 15GM BTL EXT PRN (02:15)
[2022-08-17] MEDS ORDERED: hydrOXYzine HCl 25 MG TAB PO PRN (02:15)
--- NOTE | 2022-08-17 02:56 | History and Physical Report ---
DATE OF ADMISSION: 08/16/2022. CHIEF COMPLAINT: Shortness of breath and cough. HISTORY OF PRESENT ILLNESS: This is a 52-year-old male with a past medical history significant for type 2 diabetes, hypertension, history of PE, on Coumadin; diastolic CHF, chronic back pain, history of COPD, urinary retention with chronic Lloyd, depression, anxiety, history of subdural hematoma, subarachnoid hemorrhage, history of St elevated [place], history of recurrent multiple hospitalizations, presents with shortness of breath and cough. The patient says he was exposed to COVID 1 week ago as his daughter was diagnosed with COVID and was worried about he got COVID and walking a few steps, making him short of breath and coughing and came to ER.COVID test came back negative, but he looks like he has fluid and pulmonary congestion on chest x-ray and UTI. The patient saturating 95% on 4 liters, resting comfortably, able to talk and give history. He has chronic pain. Complains of chronic headache, chronic back pain, belly pain, leg pains, chest pains. No nausea or vomiting. No runny nose, has some sore throat, no fevers. Appetite is okay. No nausea, no vomiting, constipated. Still smoking. ALLERGIES: CEFEPIME, DAPTOMYCIN, FENTANYL, NALOXONE, TYLENOL, IBUPROFEN, VALPROIC ACID. PAST MEDICAL HISTORY: As mentioned above. PAST SURGICAL HISTORY: Colonoscopy, EGD with endoscopic ultrasound, foot surgery, repair of left tendon repair, history of appendectomy, lumbar laminectomy. MEDICATIONS: The patient is on albuterol 2 puffs inhalation q. 4 hours p.r.n., aspirin 81 mg p.o. daily, atorvastatin 80 mg p.o. p.m., benzonatate 100 mg p.o. t.i.d. p.r.n., buprenorphine 8 mg sublingual t.i.d., cyclobenzaprine 10 mg p.o. b.i.d. p.r.n., Colace 100 mg p.o. b.i.d., duloxetine 60 mg p.o. daily, famotidine 20 mg p.o. daily, ferrous sulfate 325 mg p.o. a.m., finasteride 5 mg p.o. a.m., Flonase 2 sprays intranasal daily, folic acid 1 mg p.o. a.m., Lasix 40 mg p.o. b.i.d., gabapentin 800 mg p.o. t.i.d., glipizide 10 mg p.o. b.i.d., Mucinex 1200 mg p.o. b.i.d., hydroxyzine 25 mg p.o. b.i.d. p.r.n., insulin NovoLog FlexPen subcutaneous t.i.d., Lantus 15 units at bedtime, DuoNebs q. 6 hours p.r.n., isosorbide dinitrate 30 mg p.o. daily, Lactinex 1 tablet p.o. t.i.d., lorazepam 0.5 mg p.o. q. 8 hours p.r.n., magnesium oxide 400 mg p.o. daily, metolazone 2.5 mg p.o. as directed, metoprolol succinate 75 mg p.o. b.i.d., nitroglycerin 0.4 mg sublingual p.r.n., nystatin topical t.i.d. p.r.n., omeprazole 20 mg p.o. daily, Zofran 4 mg p.o. q. 8 hours p.r.n., Pyridium 200 mg p.o. q. 8 hours p.r.n., MiraLax 17 g p.o. a.m., potassium chloride 20 mEq p.o. b.i.d., Senna 8.6 mg p.o. daily p.r.n., Spiriva 1 puff inhalation daily, spironolactone 25 mg p.o. daily, Flomax 0.8 mg p.o. a.m., Coumadin 2.5 mg as directed. FAMILY HISTORY: Significant for sister has breast cancer; maternal grandfather has IL, maternal grandmother has IL, paternal grandfather has lung disorder. Mother has musculoskeletal disorder, father has aneurysm. SOCIAL HISTORY: Smoked 2 packs a day, currently smokes 1 pack a day, currently not drinking alcohol. Opiate dependence. REVIEW OF SYSTEMS: As per HPI. Rest of the review of symptoms is negative. PHYSICAL EXAMINATION: GENERAL: The patient is morbidly obese, not in acute distress. VITAL SIGNS: Temperature 36.8, pulse 75, respiratory rate 26, blood pressure 127/58, oxygen 95% on 4 liters. HEENT: Pupils equal and reactive to light. Oral mucosa moist. NECK: No JVD, no neck masses. CARDIOVASCULAR: S1 and S2 heard. Regular rate and rhythm. No murmur, no gallop. RESPIRATORY SYSTEM: Normal AP diameter. No accessory muscle use. Mild occasional bilateral wheezing, no crackles. ABDOMEN: Soft, bowel sounds present, nontender, no distention. CENTRAL NERVOUS SYSTEM: Cranial nerves II through XII are grossly intact, nonfocal. EXTREMITIES: Bilateral lower extremity gross pedal edema present. Chronic skin changes seen. LABORATORY DATA: WBC 17.8, hemoglobin 13.2, hematocrit 40.1, platelets 233. Sodium 136, potassium 3.2, chloride 93, bicarbonate 27, BUN 18, creatinine 1.05. Serum glucose 165, calcium 8.9, magnesium 1.6, total bilirubin 0.7, AST 19, ALT 20, alkaline phosphatase 99. Troponin I high sensitivity 5.6. BNP 86. Urinalysis, +2 leukocyte esterase, +1 bacteria. SARS-CoV-2 PCR negative. Influenza A and B PCR negative. RSV PCR negative. IMAGING DATA: Chest x-ray: Mild pulmonary edema. EKG: Normal sinus rhythm, rate of 80, nonspecific T-wave abnormality seen. ASSESSMENT AND PLAN: This is a 52-year-old male who presents with shortness of breath. 1. Shortness of breath Mostly acute on chronic diastolic congestive heart failure. Give him IV Lasix 40 b.i.d. Daily weights, I's and O's. Cardiology consult. Closely monitor in tele floor. 2. History of chronic obstructive pulmonary disease: Continue home inhalers and nebs p.r.n. No obvious wheezing to give any steroids at this time. 3. History of pulmonary embolism: On Coumadin. Follow PT/INR. 4. Urinary tract infection: Empirically placed on Zosyn. History of rash to cefepime in the past. We will monitor. Follow the response. Follow the cultures 5. Diabetes: Continue his home Lantus insulin. Hold glipizide. Placed on insulin sliding scale. Follow the blood sugars. 6. Benign prostatic hyperplasia, urinary retention: Chronic Lloyd. Continue Flomax and finasteride. Lloyd was changed recently 7. History of obesity hypoventilation syndrome. Use 4 liters of oxygen at bedtime as needed. 8. Chronic pain: Continue his buprenorphine. 9 Morbid obesity: Needs counseling. 10. Ongoing tobacco abuse: Needs counseling. Nicotine patch. 11. Anxiety: Use home medication of Ativan p.r.n. 12. Deep venous thrombosis prophylaxis: On Coumadin. Follow PT/INR. DISPOSITION: Closely monitor in the tele floor. Level 1 full code. Expect to discharge home and follow with family doctor. Job ID: [id number] [facility]
[2022-08-17] MEDS: FUROSEMIDE 40 MG/4 ML VIAL IV SCH ×3 (03:42→21:21)
[2022-08-17] MEDS ORDERED: GLUCOSE 10 TAB/TUBE PO PRN (03:45)
[2022-08-17] MEDS ORDERED: DEXTROSE 50% 50 ML SYRINGE IV PRN (03:45)
[2022-08-17] MEDS ORDERED: CARBOHYDRATES FOR HYPOGLYCEMIA PO PRN (03:45)
[2022-08-17] MEDS ORDERED: GLUCOSE 40% GEL 15 GM TUBE PO PRN (03:45)
[2022-08-17] MEDS ORDERED: GLUCAGON FOR INJ 1 MG VIAL IM PRN (03:45)
[2022-08-17] MEDS ORDERED: FLUARIX QUADRIVALENT 0.5 ML SYR IM ONE (03:47)
[2022-08-17] MEDS ORDERED: PNEUMOCOCCAL POLYSACCHARIDES 25 MCG/0.5 ML VIAL/SYR IM ONE (03:47)
[2022-08-17] MEDS ORDERED: buprenorphine HCL 8 MG SUBL SL STA (03:50)
[2022-08-17] MEDS: INSULIN ASPART PER UNIT SC SCH ×5 (03:54→22:25)
[2022-08-17] MEDS ORDERED: INSULIN ASPART PER UNIT ONE (03:56)
[2022-08-17] MEDS: PIPERACILLIN/TAZOBACTAM 4.5 GM in DEXTROSE 5% 100 ML IV SCH ×3 (03:58→20:59)
[2022-08-17] MEDS: PANTOprazole 40 MG TAB PO SCH (06:27)
[2022-08-17 07:48] LABS: Basophils # (auto) 0.06 K/uL (0-0.2); Basophils % (auto) 0.5 %; Eosinophils # (auto) 0.47 K/uL (0-0.50); Eosinophils % (auto) 3.5 %; Hematocrit (blood only) 41.6 % (40.1-51.0); Hemoglobin 13.7 g/dl (14.0-18.0); Immature Granulocytes # (auto) 0.06 K/uL (0.00-0.02); Immature Granulocytes % (auto) 0.5 %; Lymphocytes # (auto) 2.54 K/uL (1.2-3.4); Lymphocytes % (auto) 19.1 %; Mean Corpuscular Hemoglobin 27.3 pg (25.0-34.0); Mean Corpuscular Hgb Conc 32.9 g/dL (32.0-36.0); Mean Platelet Volume 10.5 fL (9.4-12.4); Monocytes # (auto) 1.19 K/uL (0.24-0.82); Monocytes % (auto) 8.9 %; Neutrophils # (auto) 9.01 K/uL (1.4-6.5); Neutrophils % (auto) 67.5 %; Platelet Count 204 K/uL (130-400); RDW Standard Deviation 51.1 fL (36.4-46.3); Red Blood Count 5.01 M/uL (4.63-6.08); White Blood Count 13.33 K/ul (4.8-10.8)
[2022-08-17 08:03] LABS: INR 2.8 (0.9-1.1); Prothrombin Time 27.8 Seconds (9.0-12.0)
[2022-08-17 08:06] LABS: BUN Creatinine Ratio 18.4 (10-20); Calcium 9.1 mg/dl (8.5-10.1); Creatinine Clr Calc Pharmacy 175.6 ml/min; Est GFR (Non-African American) 99.2 ml/min; Magnesium 1.6 mg/dl (1.7-2.4); Potassium 2.7 mmol/L (3.5-5.1)
[2022-08-17] MEDS ORDERED: POTASSIUM CHLORIDE CRTAB 20 MEQ TABCR PO STA (08:21)
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
[2022-08-17 08:53] LABS: Estimated Average Glucose 206 mg/dl; Hemoglobin A1C 8.8 % (4.5-5.6)
[2022-08-17] MEDS: NICOTINE 21 MG/24 HR TDSY TD SCH (08:53)
[2022-08-17] MEDS: UMECLIDINIUM BROMIDE 62.5MCG/BLISTER 7 PUFFS/INHALER INH SCH (08:54)
[2022-08-17] MEDS: ISOSORBIDE DINITRATE 10 MG TAB PO SCH (08:54)
[2022-08-17] MEDS ORDERED: metOLazone 2.5 MG TABLET PO SCH (09:00)
[2022-08-17] MEDS ORDERED: POLYETHYLENE (MIRALAX) 17 GM PACK PO SCH (09:00)
[2022-08-17] MEDS ORDERED: POTASSIUM CHLORIDE CRTAB 20 MEQ TABCR PO SCH ×2 (09:00→21:00)
[2022-08-17] MEDS ORDERED: UREA 20% TOP SCH (09:00)
[2022-08-17] MEDS: DOCUSATE SODIUM 100 MG CAP PO SCH ×2 (09:05→21:20)
[2022-08-17] MEDS: METOPROLOL SUCC 25MG EXT REL TAB PO SCH ×2 (09:05→21:04)
[2022-08-17] MEDS: FOLIC ACID 1 MG TAB PO SCH (09:05)
[2022-08-17] MEDS: FAMOTIDINE 20 MG TAB PO SCH (09:05)
[2022-08-17] MEDS: DULoxetine HCL 60 MG CAP PO SCH (09:05)
[2022-08-17] MEDS: guaiFENesin 600 MG TABCR PO SCH ×2 (09:05→21:01)
[2022-08-17] MEDS: FERROUS SULFATE 325 MG TAB PO SCH (09:05)
[2022-08-17] MEDS: FINASTERIDE 5 MG TAB PO SCH (09:05)
[2022-08-17] MEDS: GABAPENTIN 800 MG TAB PO SCH ×3 (09:05→21:02)
[2022-08-17] MEDS: MAGNESIUM OXIDE 400 MG TAB PO SCH (09:05)
[2022-08-17] MEDS: SPIRONOLACTONE 25 MG TAB PO SCH (09:06)
[2022-08-17] MEDS: ADVANCED PROBIOTIC 1250 MG CAPSULE PO SCH ×3 (09:06→21:02)
[2022-08-17] MEDS: TAMSULOSIN HCL 0.4 MG CAP PO SCH (09:06)
[2022-08-17] MEDS: LORazepam 0.5 MG TAB PO PRN ×3 (09:07→21:21)
[2022-08-17] MEDS: BENZONATATE 100 MG CAPSULE PO PRN ×3 (09:07→22:34)
[2022-08-17] MEDS: CYCLOBENZAPRINE HCL 10 MG TAB PO PRN ×2 (09:07→21:20)
[2022-08-17] MEDS: FLUTICASONE PROPIONATE NA SPR 16 GM BTL SCH (09:07)
[2022-08-17] MEDS: ASPIRIN 81 MG ECTAB PO SCH (09:07)
[2022-08-17] MEDS: buprenorphine HCL 8 MG SUBL SL SCH ×3 (09:07→21:21)
[2022-08-17] MEDS: SENNA 8.6 MG TAB PO PRN (09:08)
[2022-08-17] MEDS: POTASSIUM CHLORIDE / WTR 10 MEQ/100 ML PLCT IV SCH ×2 (09:19→09:33)
[2022-08-17] MEDS ORDERED: MAGNESIUM OXIDE 400 MG TAB PO ONE (10:42)
--- NOTE | 2022-08-17 10:44 | Electrocardiogram Report ---
Test Reason : Blood Pressure : / mmHG Vent. Rate : 080 BPM Atrial Rate : 080 BPM P-R Int : 162 ms QRS Dur : 114 ms QT Int : 366 ms P-R-T Axes : 007 045 041 degrees QTc Int : 422 ms Normal sinus rhythm Incomplete right bundle branch block Abnormal ECG When compared with ECG of 30-JUL-2022 06:30, ST now depressed in Lateral leads Nonspecific T wave abnormality now evident in Inferior leads T wave inversion now evident in Anterior leads Confirmed by Luan Escalante ([id number]) on 08/17/2022 10:43:51 AM Referred By: REFERRED SELF Confirmed By:Mark Escalante
[2022-08-17] MEDS: ACETAMINOPHEN 1,000 MG/100 ML VIAL IV PRN ×2 (12:22→21:21)
[2022-08-17 13:26] LABS: Creatinine Clr Calc Pharmacy 173.6 ml/min; Est GFR (African American) 114.5 ml/min; Est GFR (Non-African American) 98.8 ml/min; Potassium 2.9 mmol/L (3.5-5.1)
[2022-08-17] MEDS: methylPREDNISolone 40 MG in SYRINGE 0 ML IV SCH ×2 (13:54→21:00)
--- NOTE | 2022-08-17 14:15 | Hospitalist Progress Note ---
Date of Service August 17, 2022 Assessment & Plan (1) (HFpEF) heart failure with preserved ejection fraction: Plan: Presented with shortness of breath with minimal exertion Chest x-ray suggestive of mild congestive changes Was acute on chronic diastolic heart failure Received intravenous Lasix and will be continued Appreciate cardiology input and recommendation Echo will be reviewed (2) SOB (shortness of breath): Plan: History of DARIA, COPD, asthma and is complicated by CHF Has been saturating normally on room air now (3) COPD (chronic obstructive pulmonary disease): Plan: History of COPD and asthma Wheezing with more shortness of breath with minimal exertion Cough without any phlegm We will continue current nebulized treatment and add small dose of Solu-Medrol (4) Acute UTI (urinary tract infection): Plan: UA suggestive of infection Intravenous Zosyn and awaiting urine culture and sensitivity (5) Chronic indwelling Lloyd catheter: Plan: May be complicated UTI (6) History of pulmonary embolism: Plan: INR is therapeutic (7) 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: Plan: We will put him on sliding scale insulin coverage Hemoglobin A1c 8.8 Chronic pain syndrome Right foot pain Has been on Suboxone No narcotics will be given routine Continue with intravenous Tylenol DVT prophylaxis On Coumadin CODE STATUS Full Admission and Anticipated Discharge Date Admission Date: August 16, 2022 Subjective 08/17/2022 The patient was seen and examined in telemetry unit He was admitted yesterday with shortness of breath and cough Did not have any weight gain and did not complain of any chest pain or palpitation Did not have any urinary symptoms Has not been feeling any better this morning and complains of increasing cough and wheezing Review of Systems Review of Systems: All systems reviewed and are unremarkable except as noted below Physical Exam Physical Exam: Lying in bed comfortably but very anxious Constitutional: well developed, well nourished, + ill appearing and + morbidly obese Eyes: PERRL, conjunctivae normal, anicteric sclerae ENMT: external ear and nose normal, oropharynx normal Neck: trachea midline, no thyromegaly Respiratory: no respiratory distress Auscultation: + diminished lung sounds, + crackles (Minimal bibasilar crackles) and + wheezes (Minimal wheezing bilaterally) Cardiovascular: Rate/Rhythm: regular rate and regular rhythm Heart Sounds: normal S1 and normal S2; no murmur Extremities: + edema (1+ edema bilaterally and is chronic) Gastrointestinal (Abdomen): Inspection/Auscultation: + abdomen distended and normal bowel sounds Percussion/Palpation: abdomen soft; abdomen nontender Musculoskeletal: No acute arthritis in any joint Neurologic: normal touch/pain/proprioception and moves all extremities; no focal motor deficits Lymphatic: no cervical or axillary lymphadenopathy Results & Data Results & Data ([facility]) Vital Signs (Past 12 Hours) Vital Signs Temp Pulse Pulse Resp BP Pulse Ox O2 Del Method 08/17/22 11:49 36.4 C L 81 20 154/54 H 90 Room Air 08/17/22 08:00 Nasal Cannula 08/17/22 07:40 36.4 C L 71 18 143/76 H 96 Nasal Cannula 08/17/22 03:37 72 08/17/22 03:13 Nasal Cannula 08/17/22 03:13 36.6 C 75 20 126/81 97 Nasal Cannula O2 Flow Rate 08/17/22 11:49 08/17/22 08:00 4 08/17/22 07:40 4 08/17/22 03:37 08/17/22 03:13 4 08/17/22 03:13 4 Laboratory Results Short CBC 08/16/22 08/17/22 Range/Units 16:45 07:32 WBC 17.38 H 13.33 H (4.8-10.8) K/ul Hgb 13.2 L 13.7 L (14.0-18.0) g/dl Hct 40.1 41.6 (40.1-51.0) % Plt Count 233 204 (130-400) K/uL BMP 08/16/22 08/17/22 08/17/22 16:45 07:32 12:40 Sodium 136 136 135 L Potassium 3.2 L 2.7 L 2.9 L Chloride 93 L 91 L 90 L Carbon Dioxide 37 H 40 H 40 H BUN 18 16 15 Creatinine 1.05 0.87 0.88 Glucose 165 H 220 H 189 H Calcium 8.9 9.1 9.0 Liver Function 08/16/22 Range/Units 16:45 Total Bilirubin 0.7 (0.2-1.0) mg/dl AST 19 (13-39) U/L ALT 20 (7-52) U/L Alkaline Phosphatase 99 (34-104) U/L Albumin 3.5 (3.4-5.0) gm/dl Urine 08/16/22 Range/Units 16:45 Urine Color Yellow Urine Appearance Clear (Clear) Urine pH 6.0 (4.5-7.5) Ur Specific [place] 1.010 (1.000-1.030) Urine Protein Negative (Negative) Urine Glucose (UA) Negative (Negative) Medications Administered Current Inpatient Medications Acetaminophen (Acetaminophen 325 Mg Tab) 650 mg PO Q4H PRN PRN Reason: Pain or Fever Stop: 09/16/22 02:14 Albuterol (Albuterol Hfa 8 Gm Inhaler) 2 puffs INH Q4 PRN PRN Reason: Dyspnea Stop: 09/16/22 02:14 Albuterol (Albut/Ipratrop 3mg/0.5mg Neb 3 Ml Vial) 3 ml INH Q6H PRN; Protocol PRN Reason: Shortness Of Breath Or Wheezing Stop: 09/16/22 02:14 Aspirin (Aspirin 81 Mg Ectab) 81 mg PO QAM [facility] Stop: 09/16/22 08:59 Last Admin: 08/17/22 09:07 Dose: 81 mg Atorvastatin Calcium (Atorvastatin 40 Mg Tab) 80 mg PO QPM [facility] Stop: 09/16/22 20:59 Benzonatate (Benzonatate 100 Mg Capsule) 100 mg PO TID PRN PRN Reason: cough Stop: 09/16/22 02:14 Last Admin: 08/17/22 13:54 Dose: 100 mg Buprenorphine HCl (Buprenorphine Hcl 8 Mg Subl) 8 mg SL TID [facility] Stop: 09/16/22 08:59 Last Admin: 08/17/22 13:54 Dose: 8 mg Cyclobenzaprine HCl (Cyclobenzaprine Hcl 10 Mg Tab) 10 mg PO BID PRN PRN Reason: Muscle Spasm Stop: 09/16/22 02:14 Last Admin: 08/17/22 09:07 Dose: 10 mg Dextrose (Dextrose 50% 50 Ml Syringe) 25 - 50 ml IV UD PRN; Protocol PRN Reason: Hypoglycemia Protocol Stop: 09/16/22 03:44 Docusate Sodium (Docusate Sodium 100 Mg Cap) 100 mg PO BID [facility] Stop: 09/16/22 08:59 Last Admin: 08/17/22 09:05 Dose: 100 mg Duloxetine HCl (Duloxetine Hcl 60 Mg Cap) 60 mg PO DAILY [facility] Stop: 09/16/22 08:59 Last Admin: 08/17/22 09:05 Dose: 60 mg Famotidine (Famotidine 20 Mg Tab) 20 mg PO DAILY [facility] Stop: 09/16/22 08:59 Last Admin: 08/17/22 09:05 Dose: 20 mg Ferrous Sulfate (Ferrous Sulfate 325 Mg Tab) 325 mg PO QAM [facility] Stop: 09/16/22 08:59 Last Admin: 08/17/22 09:05 Dose: 325 mg Finasteride (Finasteride 5 Mg Tab) 5 mg PO QAM [facility] Stop: 09/16/22 08:59 Last Admin: 08/17/22 09:05 Dose: 5 mg Fluticasone Propionate (Fluticasone Propionate Na Spr 16 Gm Btl) 2 sprays NA DAILY [facility] Stop: 09/16/22 08:59 Last Admin: 08/17/22 09:07 Dose: 2 sprays Folic Acid (Folic Acid 1 Mg Tab) 1 mg PO QAM [facility] Stop: 09/16/22 08:59 Last Admin: 08/17/22 09:05 Dose: 1 mg Furosemide (Furosemide 40 Mg/4 Ml Vial) 40 mg IV BID [facility] Stop: 09/16/22 02:14 Last Admin: 08/17/22 09:06 Dose: 40 mg Gabapentin (Gabapentin 800 Mg Tab) 800 mg PO TID [facility] Stop: 09/16/22 08:59 Last Admin: 08/17/22 13:54 Dose: 800 mg Glucagon (Glucagon For Inj 1 Mg Vial) 1 mg IM UD PRN; Protocol PRN Reason: Hypoglycemia Protocol Stop: 09/16/22 03:44 Glucose (Glucose 40% Gel 15 Gm Tube) 15 - 30 gm PO UD PRN; Protocol PRN Reason: Hypoglycemia Protocol Stop: 09/16/22 03:44 Glucose (Glucose 10 Tab/Tube) 4 - 8 tab PO UD PRN; Protocol PRN Reason: Hypoglycemia Protocol Stop: 09/16/22 03:44 Guaifenesin (Guaifenesin 600 Mg Tabcr) 1,200 mg PO BID [facility] Stop: 09/16/22 08:59 Last Admin: 08/17/22 09:05 Dose: 1,200 mg Hydroxyzine HCl (Hydroxyzine Hcl 25 Mg Tab) 25 mg PO QID PRN PRN Reason: Anxiety Stop: 09/16/22 02:14 Piperacillin Sod/Tazobactam (Sod 4.5 gm/ Dextrose) 120 mls @ 30 mls/hr IV Q8H [facility]; Protocol Stop: 08/27/22 03:59 Last Admin: 08/17/22 12:17 Dose: 28.5 mls/hr Acetaminophen (Ofirmev) 1,000 mg in 100 mls @ 400 mls/hr IV Q8H PRN PRN Reason: Moderate Pain Stop: 08/20/22 10:55 Last Infusion: 08/17/22 13:00 Dose: Infused Methylprednisolone 40 mg/ (Syringe) 0.64 mls @ 1.5 mls/min IV BID [facility] Stop: 09/16/22 13:29 Last Admin: 08/17/22 13:54 Dose: 1.5 mls/min Magnesium Sulfate/Dextrose (Magnesium Sulfate / D5w) 1 gm in 100 mls @ 50 mls/hr IV Q2H [facility] Stop: 08/17/22 18:14 Insulin Aspart (Insulin Aspart Per Unit) 0 units SC ACHS [facility] Stop: 09/16/22 07:29 Last Admin: 08/17/22 12:17 Dose: 15 units Insulin Glargine (Lantus Per Unit Charge) 50 units SQ HS [facility] Stop: 09/16/22 20:59 Isosorbide Dinitrate (Isosorbide Dinitrate 10 Mg Tab) 30 mg PO DAILY [facility] Stop: 09/16/22 08:59 Last Admin: 08/17/22 08:54 Dose: 30 mg Lactobacillus Acidophilus (Advanced Probiotic 1250 Mg Capsule) 2 cap PO TID [facility] Stop: 09/16/22 08:59 Last Admin: 08/17/22 13:54 Dose: 2 cap Lorazepam (Lorazepam 0.5 Mg Tab) 0.5 mg PO Q8 PRN PRN Reason: Anxiety Stop: 09/16/22 02:14 Last Admin: 08/17/22 13:54 Dose: 0.5 mg Magnesium Oxide (Magnesium Oxide 400 Mg Tab) 400 mg PO DAILY [facility] Stop: 09/16/22 08:59 Last Admin: 08/17/22 09:05 Dose: 400 mg Metolazone (Metolazone 2.5 Mg Tablet) 2.5 mg PO MoWeFr@0900 [facility] Stop: 09/16/22 08:59 Last Admin: 08/17/22 09:06 Dose: 2.5 mg Metoprolol Succinate (Metoprolol Succ 25mg Ext Rel Tab) 75 mg PO BID [facility] Stop: 09/16/22 08:59 Last Admin: 08/17/22 09:05 Dose: 75 mg Miscellaneous (Carbohydrates For Hypoglycemia ) 15 - 30 gm PO UD PRN PRN Reason: Hypoglycemia Treatment Stop: 09/16/22 03:44 Miscellaneous (Remove Nicoderm Patch) 1 each N/A DAILY@0859 [facility] Stop: 09/17/22 08:58 Nicotine (Nicotine 21 Mg/24 Hr Tdsy) 21 mg TD QAM [facility] Stop: 09/16/22 08:59 Last Admin: 08/17/22 08:53 Dose: 21 mg Nitroglycerin (Nitroglycerin Sl 0.4 Mg/Tab Tab) 0.4 mg SL UD PRN PRN Reason: Chest Pain Stop: 09/16/22 02:14 Nystatin (Nystatin Powder 15gm Btl) 1 appln EXT TID PRN PRN Reason: Skin Irritation Stop: 09/16/22 02:14 Ondansetron HCl (Ondansetron 4 Mg Od Tab) 4 mg PO Q8H PRN PRN Reason: NAUSEA/VOMITING Pantoprazole Sodium (Pantoprazole 40 Mg Tab) 40 mg PO DAILYBB [facility] Stop: 09/16/22 06:29 Last Admin: 08/17/22 06:27 Dose: 40 mg Phenazopyridine HCl (Phenazopyridine Hcl 200 Mg Tab) 200 mg PO Q8H PRN PRN Reason: pain Stop: 09/16/22 02:14 Polyethylene Glycol (Polyethylene (Miralax) 17 Gm Pack) 17 gm PO DAILY PRN PRN Reason: Constipation Stop: 09/16/22 02:14 Polyethylene Glycol (Polyethylene (Miralax) 17 Gm Pack) 17 gm PO BID [facility] Stop: 09/16/22 20:59 Potassium Chloride (Potassium Chloride Crtab 20 Meq Tabcr) 40 meq PO BID [facility] Stop: 09/16/22 20:59 Sennosides (Senna 8.6 Mg Tab) 8.6 mg PO DAILY PRN PRN Reason: Constipation Stop: 09/16/22 02:14 Last Admin: 08/17/22 09:08 Dose: 8.6 mg Spironolactone (Spironolactone 25 Mg Tab) 25 mg PO QAM [facility] Stop: 09/16/22 08:59 Last Admin: 08/17/22 09:06 Dose: 25 mg Tamsulosin HCl (Tamsulosin Hcl 0.4 Mg Cap) 0.8 mg PO QAM [facility] Stop: 09/16/22 08:59 Last Admin: 08/17/22 09:06 Dose: 0.8 mg Umeclidinium [place] (Umeclidinium [place] 62.5mcg/Blister 7 Puffs/Inhaler) [facility] Stop: 09/16/22 08:59 Last Admin: 08/17/22 08:54 Dose: 1 puffs Warfarin Sodium (Warfarin Sod 5 Mg Tab) 5 mg PO Mo@1600 [facility] Stop: 09/16/22 15:59 Warfarin Sodium (Warfarin Sod 2.5 Mg Tab) 2.5 mg PO SuTuWeThFrSa@1600 [facility] Stop: 09/17/22 15:59 (1) COPD (chronic obstructive pulmonary disease) COPD type: unspecified COPD Qualified Code(s): J44.9 - Chronic obstructive pulmonary disease, unspecified
[2022-08-17] MEDS: MAGNESIUM SULFATE / D5W 1 GM/100 ML BAG IV SCH ×2 (14:18→16:17)
[2022-08-17] MEDS ORDERED: WARFARIN SOD 5 MG TAB PO SCH (16:00)
[2022-08-17 17:19] LABS: Adenovirus PCR Not Detected (NotDetected); Bordetella parapertussis PCR Not Detected (NotDetected); Bordetella pertussis PCR Not Detected (NotDetected); Chlamydia pneumoniae PCR Not Detected (NotDetected); Coronavirus 229E PCR Not Detected (NotDetected); Coronavirus CoV-2 (COVID19)PCR Not Detected (NotDetected); Coronavirus HKU1 PCR Not Detected (NotDetected); Coronavirus NL63 PCR Not Detected (NotDetected); Coronavirus OC43PCR Not Detected (NotDetected); Human Metapneumovirus PCR Not Detected (NotDetected); Influenza A PCR Not Detected (NotDetected); Influenza B PCR Not Detected (NotDetected); Mycoplasma pneumoniae PCR Not Detected (NotDetected); Parainfluenza Virus 1 PCR Not Detected (NotDetected); Parainfluenza Virus 2 PCR Not Detected (NotDetected); Parainfluenza Virus 3 PCR Not Detected (NotDetected); Parainfluenza Virus 4 PCR Not Detected (NotDetected); Respiratory Syncytial VirusPCR Not Detected (NotDetected); Rhinovirus/Enterovirus PCR Not Detected (NotDetected)
[2022-08-17] MEDS: ATORVASTATIN 40 MG TAB PO SCH (21:03)
[2022-08-17] MEDS: POLYETHYLENE (MIRALAX) 17 GM PACK PO SCH (21:04)
[2022-08-17] MEDS: LANTUS PER UNIT CHARGE SQ SCH (22:25)
[2022-08-18] MEDS: guaiFENesin/CODEINE 100MG/10MG 5ML UDC PO PRN ×4 (01:33→21:29)
[2022-08-18] MEDS: COUGH DROP (SUGAR FREE) LOZ 24 LOZ/1 BOX BUCCAL PRN (04:21)
[2022-08-18] MEDS: BENZONATATE 100 MG CAPSULE PO PRN ×4 (04:21→21:29)
[2022-08-18] MEDS: PANTOprazole 40 MG TAB PO SCH (04:22)
[2022-08-18] MEDS: PIPERACILLIN/TAZOBACTAM 4.5 GM in DEXTROSE 5% 100 ML IV SCH (04:22)
[2022-08-18 07:24] LABS: Basophils # (auto) 0.03 K/uL (0-0.2); Basophils % (auto) 0.2 %; Hemoglobin 13.9 g/dl (14.0-18.0); Immature Granulocytes # (auto) 0.09 K/uL (0.00-0.02); Immature Granulocytes % (auto) 0.7 %; Lymphocytes % (auto) 10.2 %; Mean Corpuscular Hemoglobin 27.7 pg (25.0-34.0); Mean Corpuscular Hgb Conc 33.9 g/dL (32.0-36.0); Mean Corpuscular Volume 81.8 fL (80.0-100.0); Monocytes # (auto) 0.43 K/uL (0.24-0.82); Monocytes % (auto) 3.4 %; Neutrophils # (auto) 10.93 K/uL (1.4-6.5); Neutrophils % (auto) 85.5 %; Platelet Count 231 K/uL (130-400); RDW Coefficient of Variation 16.1 % (11.5-14.5); RDW Standard Deviation 47.8 fL (36.4-46.3); Red Blood Count 5.01 M/uL (4.63-6.08); White Blood Count 12.78 K/ul (4.8-10.8)
[2022-08-18 07:35] LABS: INR 2.9 (0.9-1.1); Prothrombin Time 28.8 Seconds (9.0-12.0)
[2022-08-18 07:51] LABS: BUN Creatinine Ratio 16.3 (10-20); Calcium 10.1 mg/dl (8.5-10.1); Est GFR (African American) 110.4 ml/min; Est GFR (Non-African American) 95.3 ml/min; Potassium 3.1 mmol/L (3.5-5.1)
[2022-08-18] MEDS: methylPREDNISolone 40 MG in SYRINGE 0 ML IV SCH ×2 (08:39→21:31)
[2022-08-18] MEDS: TAMSULOSIN HCL 0.4 MG CAP PO SCH (08:40)
[2022-08-18] MEDS: MAGNESIUM OXIDE 400 MG TAB PO SCH (08:40)
[2022-08-18] MEDS: FOLIC ACID 1 MG TAB PO SCH (08:40)
[2022-08-18] MEDS: GABAPENTIN 800 MG TAB PO SCH ×3 (08:40→21:34)
[2022-08-18] MEDS: FINASTERIDE 5 MG TAB PO SCH (08:40)
[2022-08-18] MEDS: ISOSORBIDE DINITRATE 10 MG TAB PO SCH (08:40)
[2022-08-18] MEDS: FAMOTIDINE 20 MG TAB PO SCH (08:40)
[2022-08-18] MEDS: METOPROLOL SUCC 25MG EXT REL TAB PO SCH ×2 (08:40→21:31)
[2022-08-18] MEDS: SPIRONOLACTONE 25 MG TAB PO SCH (08:40)
[2022-08-18] MEDS: FERROUS SULFATE 325 MG TAB PO SCH (08:40)
[2022-08-18] MEDS: guaiFENesin 600 MG TABCR PO SCH ×2 (08:41→21:33)
[2022-08-18] MEDS: ADVANCED PROBIOTIC 1250 MG CAPSULE PO SCH ×3 (08:41→21:31)
[2022-08-18] MEDS: ASPIRIN 81 MG ECTAB PO SCH (08:41)
[2022-08-18] MEDS: FLUTICASONE PROPIONATE NA SPR 16 GM BTL SCH (08:42)
[2022-08-18] MEDS: UMECLIDINIUM BROMIDE 62.5MCG/BLISTER 7 PUFFS/INHALER INH SCH (08:42)
[2022-08-18] MEDS: POLYETHYLENE (MIRALAX) 17 GM PACK PO SCH ×2 (08:42→21:32)
[2022-08-18] MEDS: NICOTINE 21 MG/24 HR TDSY TD SCH (08:42)
[2022-08-18] MEDS: buprenorphine HCL 8 MG SUBL SL SCH ×3 (08:43→21:27)
[2022-08-18] MEDS: LORazepam 0.5 MG TAB PO PRN ×2 (08:43→14:12)
[2022-08-18] MEDS: ACETAMINOPHEN 1,000 MG/100 ML VIAL IV PRN ×2 (08:43→16:12)
[2022-08-18] MEDS: INSULIN ASPART PER UNIT SC SCH ×4 (08:55→21:20)
[2022-08-18] MEDS: DULoxetine HCL 60 MG CAP PO SCH (08:56)
[2022-08-18] MEDS: POTASSIUM CHLORIDE CRTAB 20 MEQ TABCR PO SCH ×3 (08:57→21:29)
--- NOTE | 2022-08-18 08:57 | Cardiology Progress Note ---
Date of Service August 18, 2022 Assessment & Plan (1) (HFpEF) heart failure with preserved ejection fraction: (2) Hypokalemia: (3) COPD (chronic obstructive pulmonary disease): (4) Chronic indwelling Lloyd catheter: (5) SOB (shortness of breath): (6) History of pulmonary embolism: Plan Medically complex 52-year-old male admitted due to acute shortness of breath. Respiratory panel negative. Patient diuresed with IV Lasix 40 mg twice daily, normally maintained on furosemide 40 mg twice daily at home. Overall patient appears euvolemic on exam. Weights have been stable. Shortness of breath possibly due to a viral illness. -For now continue spironolactone 25 mg daily. -Continue to hold IV Lasix and metolazone- will reassess volume status in the morning to consider restarting PO home Lasix. -Trend BMP- Replace potassium for goal of 4.0 and a magnesium of 2.0. Continue KCL 40 meq TID (increased dose) -2 g sodium diet, strict I&Os, standing daily weights. -Will defer to primary team for treatment of ? Viral respiratory tract infection- currently getting IV antibiotics and Solumedrol. Will send sputum for C&S. Case discussed with Dr. Penn- will follow. Admission and Anticipated Discharge Date Admission Date: August 16, 2022 Supervising Physician Co-Signing Physician Notes Patient seen examined the bedside. Continues to report cough, wheezing, shortness of breath and generalized fatigue. No orthopnea, PND, or edema. Fluid balance -4.3 L. Renal function remained stable, however, serum sodium tr ending downward slightly. PE: VSS. GEN: NAD, AAO x3. Heart: regular rhythm, normal S1S2. no murmur. Lungs: Scattered rhonchi with bilateral expiratory wheezing. No rales. Abdomen: Soft nontender. No rebound or guarding. Extremities: Trace pedal edema with stasis changes. A/P: Agree with above [employer] PERSON history, physical exam, assessment and plan. Patient appears euvolemic to mildly volume depleted. Serum sodium trending downward slightly. Persistent hypokalemia noted per a.m. labs. Hold loop diuretic and metolazone. Continue spironolactone and potassium supplementation. Consider pulmonary evaluation for ongoing cough, wheeze and upper respiratory tract infection. Subjective Medically complex 52-year-old male admitted due to acute shortness of breath. Respiratory panel negative. Patient diuresed with IV Lasix 40 mg twice daily, normally maintained on furosemide 40 mg twice daily at home. 08/17: Patient appeared hypovolemic on exam. Second dose of IV Lasix held. Metolazone held. Ongoing hypokalemia-supplemented. Bio fire negative. Echo 08/16: LVEF 55 to 60% with mild concentric LVH. Poorly visualized valvular anatomy. 08/18: Short telemetry reviewed. Patient seen and examined at bedside. Upon entrance into the room patient resting in be. States that he "feels like crap"- notes shortness of breath worse compared to yesterday. Noting congestion and nonproductive course cough. +Fatigue and low stamina. No worsening leg swelling. Telemetry: NSR 70s I&O: -6L Weight: 196 >> 196 kg (bed scale) Labs: WBC elevated, 12.7. Renal function stable. Mild hyponatremia, 134. Hypokalemia, 3.1. Magnesium, 2.0 Review of Systems Review of Systems: All systems reviewed & are unremarkable except as noted in HPI & below Physical Exam Constitutional: WD/WN, vitals as above + ill appearing and + obese; no acute distress Eyes: PERRL, conjunctivae normal, anicteric sclerae Neck: normal visual inspection and trachea midline Respiratory: normal respiratory effort and + cough; no respiratory distress Auscultation: + rales (bibasilar ) and + rhonchi; no wheezes +nonproductive course cough Cardiovascular: RRR, no murmur, no edema Heart Sounds: normal S1 and normal S2 Skin: no rashes, warm and dry Psychiatric: A+Ox3, euthymic affect Results & Data ([place]) Vital Signs (Past 12 Hours) Vital Signs Temp Pulse Pulse Resp BP Pulse Ox O2 Del Method 08/18/22 08:06 36.3 C L 71 17 156/75 H 93 Nasal Cannula 08/18/22 04:00 36.5 C 71 17 140/75 92 Nasal Cannula 08/18/22 01:39 79 18 91 Nasal Cannula 08/17/22 23:00 74 08/17/22 23:46 36.7 C 79 20 143/79 H 91 Nasal Cannula O2 Flow Rate 08/18/22 08:06 4 08/18/22 04:00 4 08/18/22 01:39 4 08/17/22 23:00 08/17/22 23:46 4 Laboratory Results Coagulation 08/18/22 Range/Units 06:33 PT 28.8 H (9.0-12.0) Seconds CBC 08/18/22 Range/Units 06:33 WBC 12.78 H (4.8-10.8) K/ul RBC 5.01 (4.63-6.08) M/uL Hgb 13.9 L (14.0-18.0) g/dl Hct 41.0 (40.1-51.0) % Plt Count 231 (130-400) K/uL Neut # (Auto) 10.93 H (1.4-6.5) K/uL Lymph # (Auto) 1.30 (1.2-3.4) K/uL [place] # (Auto) 0.43 (0.24-0.82) K/uL Eos # (Auto) 0.00 (0-0.50) K/uL Baso # (Auto) 0.03 (0-0.2) K/uL Comprehensive Metabolic Panel 08/17/22 08/17/22 08/18/22 Range/Units 12:40 21:22 06:33 Sodium 135 L 134 L (136-145) mmol/L Potassium 2.9 L 3.1 L (3.5-5.1) mmol/L Chloride 90 L 89 L (98-107) mmol/L Carbon Dioxide 40 H 39 H (21-32) mmol/L BUN 15 15 (6-23) mg/dl Creatinine 0.88 0.92 (0.6-1.4) mg/dl Glucose 189 H 307 H* 358 H* (70-99(Fasting)) mg/dl Calcium 9.0 10.1 (8.5-10.1) mg/dl Intake and Output 08/17/22 08/18/22 08/18/22 22:59 06:59 14:59 Intake Total 419.167 / 5454.046 9283 / 1882.500 Output Total 1850 / 8350 2800 / 8350 Balance -1430.833 / -6467.500 -1680 / -6467.500 Intake: IV 419.167 / 882.500 120 / 882.500 Acetaminophen 1,000 mg In 100 100 / 200 ml @ 400 mls/hr IV Q8H PRN Rx#: [id number] Magnesium Sulfate / D5w 1 gm In 199.167 / 199.167 100 ml @ 50 mls/hr IV Q2H [facility] Rx#:[id number] Piperacillin/Tazobactam 4.5 gm 120 / 360 120 / 360 In Dextrose 5% 100 ml @ 30 mls/ hr IV Q8H [facility] Rx#:[id number] Oral 1000 / 1000 Output: Urine Amount (Catheter) 1850 / 8350 2800 / 8350 Lloyd/Indwelling 1850 / 8350 2800 / 8350 Other: Weight 196 kg (1) COPD (chronic obstructive pulmonary disease) COPD type: unspecified COPD Qualified Code(s): J44.9 - Chronic obstructive pulmonary disease, unspecified
[2022-08-18] MEDS ORDERED: FUROSEMIDE 40 MG/4 ML VIAL IV ONE (09:01)
[2022-08-18] MEDS: FUROSEMIDE 40 MG/4 ML VIAL IV SCH (09:03)
[2022-08-18] MEDS: DOCUSATE SODIUM 100 MG CAP PO SCH ×2 (09:03→21:29)
[2022-08-18] MEDS: CYCLOBENZAPRINE HCL 10 MG TAB PO PRN ×2 (09:05→21:29)
[2022-08-18] MEDS ORDERED: VANCOMYCIN CONSULT ACTIVE PRN (10:50)
[2022-08-18] MEDS ORDERED: VANCOMYCIN HCL 1,000 MG in SODIUM CHLORIDE 0.9% 250 ML IV STA (10:50)
--- NOTE | 2022-08-18 11:26 | Electrocardiogram Report ---
Test Reason : Blood Pressure : / mmHG Vent. Rate : 067 BPM Atrial Rate : 067 BPM P-R Int : 186 ms QRS Dur : 110 ms QT Int : 412 ms P-R-T Axes : -07 043 047 degrees QTc Int : 435 ms Normal sinus rhythm Incomplete right bundle branch block Normal ECG When compared with ECG of 16-AUG-2022 16:35, Nonspecific T wave abnormality, improved in Inferior leads T wave inversion no longer evident in Anterior leads Confirmed by Luan Escalante ([id number] on 08/18/2022 11:25:43 AM Referred By: REFERRED SELF Confirmed By:Mark Escalante
[2022-08-18] MEDS: DOXYCYCLINE HYCLATE 100 MG CAP PO SCH ×2 (12:51→21:34)
[2022-08-18] MEDS ORDERED: SULFAMETHOXAZOLE/TRIMETHOPRIM DS 800/160MG TAB PO SCH (13:00)
[2022-08-18] MEDS ORDERED: SOD PHOSPHATE/SOD BIPHOSPHATE ENEMA 132 ML BTL PR STA (14:28)
[2022-08-18] MEDS: ALBUTEROL HFA 8 GM INHALER INH PRN ×2 (15:37→21:43)
--- NOTE | 2022-08-18 16:00 | Hospitalist Progress Note ---
Date of Service August 18, 2022 Assessment & Plan (1) (HFpEF) heart failure with preserved ejection fraction: Plan: Presented with shortness of breath with minimal exertion Chest x-ray suggestive of mild congestive changes Was acute on chronic diastolic heart failure Received intravenous Lasix and will be continued Appreciate cardiology input and recommendation Echo of the heart showed EF of 55 to 60%, mild concentric LVH, RV is mildly dilated, right ventricular systolic function is normal and poorly visualized valvular anatomy without significant stenosis or regurgitation IV diuresis is on hold as per crowning inspector Will be assessed tomorrow Constipation Been on oral laxatives Ask for enema and that was provided (2) SOB (shortness of breath): Plan: History of DARIA, COPD, asthma and is complicated by CHF Worsening of wheezing and shortness of breath and requiring more oxygen We will continue current nebulized treatment and steroid (3) COPD (chronic obstructive pulmonary disease): Plan: History of COPD and asthma Wheezing with more shortness of breath with minimal exertion Cough without any phlegm We will continue current nebulized treatment and add small dose of Solu-Medrol (4) Acute UTI (urinary tract infection): Plan: UA suggestive of infection Intravenous Zosyn and awaiting urine culture and sensitivity Urine culture is growing coagulase-negative Staphylococcus and is resistant to penicillin He cannot take daptomycin and/or Zyvox due to severe interaction and vancomycin doses too much for him Bactrim was chosen for today and await ID input and recommendation for further antibiotic use (5) Chronic indwelling Lloyd catheter: Plan: May be complicated UTI As above (6) History of pulmonary embolism: Plan: INR is therapeutic INR needs to be monitored closely with addition of Bactrim Creatinine has to be monitored monitored closely with addition of back (7) 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: Plan: We will put him on sliding scale insulin coverage Hemoglobin A1c 8.8 Sliding scale has been modified Chronic pain syndrome Right foot pain Has been on Suboxone No narcotics will be given routine Continue with intravenous Tylenol DVT prophylaxis On Coumadin CODE STATUS Full Will need PT and OT evaluation with improvement of current medical condition Admission and Anticipated Discharge Date Admission Date: August 16, 2022 Subjective 08/17/2022 The patient was seen and examined in telemetry unit He was admitted yesterday with shortness of breath and cough Did not have any weight gain and did not complain of any chest pain or palpitation Did not have any urinary symptoms Has not been feeling any better this morning and complains of increasing cough and wheezing 08/18/2022 The patient was seen and examined in telemetry unit He has been complaining of more wheezing with decreasing saturation Has been requiring 4 L of oxygen to maintain saturation Complains today of constipation and wanted to have an enema Denies any chest pain and/or palpitation Review of Systems Review of Systems: All systems reviewed and are unremarkable except as noted below Physical Exam Physical Exam: Lying in bed with mild to moderate shortness of breath at rest with wheezing Constitutional: well developed, well nourished, + ill appearing and + morbidly obese Eyes: PERRL, conjunctivae normal, anicteric sclerae ENMT: external ear and nose normal, oropharynx normal Neck: trachea midline, no thyromegaly Respiratory: no respiratory distress Auscultation: + diminished lung sounds, + crackles (Minimal bibasilar crackles) and + wheezes (Minimal wheezing bilaterally) Cardiovascular: Rate/Rhythm: regular rate and regular rhythm Heart Sounds: normal S1 and normal S2; no murmur Extremities: + edema (1+ edema bilaterally and is chronic) Gastrointestinal (Abdomen): Inspection/Auscultation: + abdomen distended and normal bowel sounds Percussion/Palpation: abdomen soft; abdomen nontender Musculoskeletal: No acute arthritis in any joint Neurologic: normal touch/pain/proprioception and moves all extremities; no focal motor deficits Lymphatic: no cervical or axillary lymphadenopathy Results & Data Results & Data ([facility]) Vital Signs (Past 12 Hours) Vital Signs Temp Pulse Resp BP Pulse Ox O2 Del Method O2 Flow Rate 08/18/22 15:31 36.7 C 78 20 150/72 H 94 Nasal Cannula 4 08/18/22 11:56 36.4 C L 66 19 165/72 H 94 Nasal Cannula 4 08/18/22 08:00 Nasal Cannula 4 08/18/22 08:06 36.3 C L 71 17 156/75 H 93 Nasal Cannula 4 08/18/22 04:00 36.5 C 71 17 140/75 92 Nasal Cannula 4 Laboratory Results Short CBC 08/18/22 Range/Units 06:33 WBC 12.78 H (4.8-10.8) K/ul Hgb 13.9 L (14.0-18.0) g/dl Hct 41.0 (40.1-51.0) % Plt Count 231 (130-400) K/uL BMP 08/17/22 08/18/22 21:22 06:33 Sodium 134 L Potassium 3.1 L Chloride 89 L Carbon Dioxide 39 H BUN 15 Creatinine 0.92 Glucose 307 H* 358 H* Calcium 10.1 Medications Administered Current Inpatient Medications Acetaminophen (Acetaminophen 325 Mg Tab) 650 mg PO Q4H PRN PRN Reason: Pain or Fever Stop: 09/16/22 02:14 Albuterol (Albuterol Hfa 8 Gm Inhaler) 2 puffs INH Q4 PRN PRN Reason: Dyspnea Stop: 09/16/22 02:14 Last Admin: 08/18/22 15:37 Dose: 2 puffs Albuterol (Albut/Ipratrop 3mg/0.5mg Neb 3 Ml Vial) 3 ml INH Q6H PRN; Protocol PRN Reason: Shortness Of Breath Or Wheezing Stop: 09/16/22 02:14 Last Admin: 08/18/22 01:39 Dose: 3 ml Aspirin (Aspirin 81 Mg Ectab) 81 mg PO QAM EMPERATRIZ Stop: 09/16/22 08:59 Last Admin: 08/18/22 08:41 Dose: 81 mg Atorvastatin Calcium (Atorvastatin 40 Mg Tab) 80 mg PO QPM EMPERATRIZ Stop: 09/16/22 20:59 Last Admin: 08/17/22 21:03 Dose: 80 mg Benzonatate (Benzonatate 100 Mg Capsule) 100 mg PO TID PRN PRN Reason: cough Stop: 09/16/22 02:14 Last Admin: 08/18/22 14:12 Dose: 100 mg Buprenorphine HCl (Buprenorphine Hcl 8 Mg Subl) 8 mg SL TID EMPERATRIZ Stop: 09/16/22 08:59 Last Admin: 08/18/22 14:12 Dose: 8 mg Cyclobenzaprine HCl (Cyclobenzaprine Hcl 10 Mg Tab) 10 mg PO BID PRN PRN Reason: Muscle Spasm Stop: 09/16/22 02:14 Last Admin: 08/18/22 09:05 Dose: 10 mg Dextrose (Dextrose 50% 50 Ml Syringe) 25 - 50 ml IV UD PRN; Protocol PRN Reason: Hypoglycemia Protocol Stop: 09/16/22 03:44 Docusate Sodium (Docusate Sodium 100 Mg Cap) 100 mg PO BID EMPERATRIZ Stop: 09/16/22 08:59 Last Admin: 08/18/22 09:03 Dose: 100 mg Doxycycline Hyclate (Doxycycline Hyclate 100 Mg Cap) 100 mg PO BID EMPERATRIZ Stop: 08/25/22 11:29 Last Admin: 08/18/22 12:51 Dose: 100 mg Duloxetine HCl (Duloxetine Hcl 60 Mg Cap) 60 mg PO DAILY EMPERATRIZ Stop: 09/16/22 08:59 Last Admin: 08/18/22 08:56 Dose: 60 mg Famotidine (Famotidine 20 Mg Tab) 20 mg PO DAILY EMPERATRIZ Stop: 09/16/22 08:59 Last Admin: 08/18/22 08:40 Dose: 20 mg Ferrous Sulfate (Ferrous Sulfate 325 Mg Tab) 325 mg PO QAM EMPERATRIZ Stop: 09/16/22 08:59 Last Admin: 08/18/22 08:40 Dose: 325 mg Finasteride (Finasteride 5 Mg Tab) 5 mg PO QAM EMPERATRIZ Stop: 09/16/22 08:59 Last Admin: 08/18/22 08:40 Dose: 5 mg Fluticasone Propionate (Fluticasone Propionate Na Spr 16 Gm Btl) 2 sprays NA DAILY EMPERATRIZ Stop: 09/16/22 08:59 Last Admin: 08/18/22 08:42 Dose: 2 sprays Folic Acid (Folic Acid 1 Mg Tab) 1 mg PO QAM EMPERATRIZ Stop: 09/16/22 08:59 Last Admin: 08/18/22 08:40 Dose: 1 mg Furosemide (Furosemide 40 Mg/4 Ml Vial) 40 mg IV BID EMPERATRIZ Stop: 09/16/22 02:14 Last Admin: 08/18/22 09:03 Dose: 40 mg Gabapentin (Gabapentin 800 Mg Tab) 800 mg PO TID EMPERATRIZ Stop: 09/16/22 08:59 Last Admin: 08/18/22 14:14 Dose: 800 mg Glucagon (Glucagon For Inj 1 Mg Vial) 1 mg IM UD PRN; Protocol PRN Reason: Hypoglycemia Protocol Stop: 09/16/22 03:44 Glucose (Glucose 40% Gel 15 Gm Tube) 15 - 30 gm PO UD PRN; Protocol PRN Reason: Hypoglycemia Protocol Stop: 09/16/22 03:44 Glucose (Glucose 10 Tab/Tube) 4 - 8 tab PO UD PRN; Protocol PRN Reason: Hypoglycemia Protocol Stop: 09/16/22 03:44 Guaifenesin (Guaifenesin 600 Mg Tabcr) 1,200 mg PO BID EMPERATRIZ Stop: 09/16/22 08:59 Last Admin: 08/18/22 08:41 Dose: 1,200 mg Guaifenesin/Codeine Phosphate (Guaifenesin/Codeine 100mg/10mg 5ml Udc) 5 ml PO Q6H PRN PRN Reason: Cough Stop: 09/16/22 23:49 Last Admin: 08/18/22 14:12 Dose: 5 ml Hydroxyzine HCl (Hydroxyzine Hcl 25 Mg Tab) 25 mg PO QID PRN PRN Reason: Anxiety Stop: 09/16/22 02:14 Acetaminophen (Ofirmev) 1,000 mg in 100 mls @ 400 mls/hr IV Q8H PRN PRN Reason: Moderate Pain Stop: 08/20/22 10:55 Last Infusion: 08/18/22 09:22 Dose: Infused Methylprednisolone 40 mg/ (Syringe) 0.64 mls @ 1.5 mls/min IV BID EMPERATRIZ Stop: 09/16/22 13:29 Last Admin: 08/18/22 08:39 Dose: 1.5 mls/min Insulin Aspart (Insulin Aspart Per Unit) 0 units SC ACHS EMPERATRIZ Stop: 09/16/22 07:29 Last Admin: 08/18/22 12:17 Dose: 30 units Insulin Glargine (Lantus Per Unit Charge) 50 units SQ HS EMPERATRIZ Stop: 09/16/22 20:59 Last Admin: 08/17/22 22:25 Dose: 50 units Isosorbide Dinitrate (Isosorbide Dinitrate 10 Mg Tab) 30 mg PO DAILY EMPERATRIZ Stop: 09/16/22 08:59 Last Admin: 08/18/22 08:40 Dose: 30 mg Lactobacillus Acidophilus (Advanced Probiotic 1250 Mg Capsule) 2 cap PO TID EMPERATRIZ Stop: 09/16/22 08:59 Last Admin: 08/18/22 14:14 Dose: 2 cap Lorazepam (Lorazepam 0.5 Mg Tab) 0.5 mg PO Q8 PRN PRN Reason: Anxiety Stop: 09/16/22 02:14 Last Admin: 08/18/22 14:12 Dose: 0.5 mg Magnesium Oxide (Magnesium Oxide 400 Mg Tab) 400 mg PO DAILY EMPERATRIZ Stop: 09/16/22 08:59 Last Admin: 08/18/22 08:40 Dose: 400 mg Menthol (Cough Drop (Sugar Free) Fernie 24 Fernie/1 Box) 1 fernie BUCCAL Q6H PRN PRN Reason: Sore Throat Stop: 09/17/22 03:18 Last Admin: 08/18/22 04:21 Dose: 1 fernie Metolazone (Metolazone 2.5 Mg Tablet) 2.5 mg PO MoWeFr@0900 [facility] Stop: 09/16/22 08:59 Last Admin: 08/17/22 09:06 Dose: 2.5 mg Metoprolol Succinate (Metoprolol Succ 25mg Ext Rel Tab) 75 mg PO BID [facility] Stop: 09/16/22 08:59 Last Admin: 08/18/22 08:40 Dose: 75 mg Miscellaneous (Carbohydrates For Hypoglycemia ) 15 - 30 gm PO UD PRN PRN Reason: Hypoglycemia Treatment Stop: 09/16/22 03:44 Miscellaneous (Remove Nicoderm Patch) 1 each N/A DAILY@0859 [facility] Stop: 09/17/22 08:58 Last Admin: 08/18/22 08:56 Dose: 1 each Nicotine (Nicotine 21 Mg/24 Hr Tdsy) 21 mg TD QAM [facility] Stop: 09/16/22 08:59 Last Admin: 08/18/22 08:42 Dose: 21 mg Nitroglycerin (Nitroglycerin Sl 0.4 Mg/Tab Tab) 0.4 mg SL UD PRN PRN Reason: Chest Pain Stop: 09/16/22 02:14 Nystatin (Nystatin Powder 15gm Btl) 1 appln EXT TID PRN PRN Reason: Skin Irritation Stop: 09/16/22 02:14 Ondansetron HCl (Ondansetron 4 Mg Od Tab) 4 mg PO Q8H PRN PRN Reason: NAUSEA/VOMITING Pantoprazole Sodium (Pantoprazole 40 Mg Tab) 40 mg PO DAILYBB [facility] Stop: 09/16/22 06:29 Last Admin: 08/18/22 04:22 Dose: 40 mg Phenazopyridine HCl (Phenazopyridine Hcl 200 Mg Tab) 200 mg PO Q8H PRN PRN Reason: pain Stop: 09/16/22 02:14 Polyethylene Glycol (Polyethylene (Miralax) 17 Gm Pack) 17 gm PO DAILY PRN PRN Reason: Constipation Stop: 09/16/22 02:14 Polyethylene Glycol (Polyethylene (Miralax) 17 Gm Pack) 17 gm PO BID [facility] Stop: 09/16/22 20:59 Last Admin: 08/18/22 08:42 Dose: 17 gm Potassium Chloride (Potassium Chloride Crtab 20 Meq Tabcr) 40 meq PO TID [facility] Stop: 09/17/22 08:59 Last Admin: 08/18/22 14:15 Dose: 40 meq Sennosides (Senna 8.6 Mg Tab) 8.6 mg PO DAILY PRN PRN Reason: Constipation Stop: 09/16/22 02:14 Last Admin: 08/17/22 09:08 Dose: 8.6 mg Spironolactone (Spironolactone 25 Mg Tab) 25 mg PO QAM [facility] Stop: 09/16/22 08:59 Last Admin: 08/18/22 08:40 Dose: 25 mg Tamsulosin HCl (Tamsulosin Hcl 0.4 Mg Cap) 0.8 mg PO QAM [facility] Stop: 09/16/22 08:59 Last Admin: 08/18/22 08:40 Dose: 0.8 mg Trimethoprim/Sulfamethoxazole (Sulfamethoxazole/Trimethoprim Ds 800/160mg Tab) 1 tab PO Q12H [facility] Stop: 08/23/22 12:59 Last Admin: 08/18/22 12:52 Dose: 1 tab Umeclidinium [place] (Umeclidinium [place] 62.5mcg/Blister 7 Puffs/Inhaler) 1 puffs INH QAM [facility] Stop: 09/16/22 08:59 Last Admin: 08/18/22 08:42 Dose: 1 puffs Warfarin Sodium (Warfarin Sod 5 Mg Tab) 5 mg PO Mo@1600 [facility] Stop: 09/16/22 15:59 Last Admin: 08/17/22 16:17 Dose: 5 mg Warfarin Sodium (Warfarin Sod 2.5 Mg Tab) 2.5 mg PO SuTuWeThFrSa@1600 [facility] Stop: 09/17/22 15:59 (1) COPD (chronic obstructive pulmonary disease) COPD type: unspecified COPD Qualified Code(s): J44.9 - Chronic obstructive pulmonary disease, unspecified
[2022-08-18] MEDS: WARFARIN SOD 2.5 MG TAB PO SCH (17:01)
[2022-08-18] MEDS: LANTUS PER UNIT CHARGE SQ SCH (21:21)
[2022-08-18] MEDS: ATORVASTATIN 40 MG TAB PO SCH (21:34)
[2022-08-19] MEDS: ACETAMINOPHEN 1,000 MG/100 ML VIAL IV PRN ×3 (03:35→21:14)
[2022-08-19] MEDS: LORazepam 0.5 MG TAB PO PRN ×2 (03:35→13:34)
[2022-08-19] MEDS: PANTOprazole 40 MG TAB PO SCH (03:35)
[2022-08-19 06:39] LABS: Basophils # (auto) 0.04 K/uL (0-0.2); Basophils % (auto) 0.2 %; Hematocrit (blood only) 42.8 % (40.1-51.0); Hemoglobin 14.2 g/dl (14.0-18.0); Immature Granulocytes # (auto) 0.14 K/uL (0.00-0.02); Immature Granulocytes % (auto) 0.7 %; Lymphocytes # (auto) 2.15 K/uL (1.2-3.4); Lymphocytes % (auto) 11.5 %; Mean Corpuscular Hemoglobin 27.6 pg (25.0-34.0); Mean Corpuscular Hgb Conc 33.2 g/dL (32.0-36.0); Mean Corpuscular Volume 83.3 fL (80.0-100.0); Mean Platelet Volume 10.5 fL (9.4-12.4); Monocytes % (auto) 4.3 %; Neutrophils # (auto) 15.62 K/uL (1.4-6.5); Neutrophils % (auto) 83.3 %; Platelet Count 241 K/uL (130-400); RDW Coefficient of Variation 16.1 % (11.5-14.5); RDW Standard Deviation 49.1 fL (36.4-46.3); Red Blood Count 5.14 M/uL (4.63-6.08); White Blood Count 18.75 K/ul (4.8-10.8)
[2022-08-19 07:14] LABS: INR 2.9 (0.9-1.1); Prothrombin Time 28.7 Seconds (9.0-12.0)
[2022-08-19 07:33] LABS: BUN Creatinine Ratio 23.9 (10-20); Calcium 10.7 mg/dl (8.5-10.1); Creatinine Clr Calc Pharmacy 172.8 ml/min; Est GFR (African American) 114.5 ml/min; Est GFR (Non-African American) 98.8 ml/min; Potassium 4.3 mmol/L (3.5-5.1)
[2022-08-19] MEDS ORDERED: PHARMACY GLYCEMIC MGMT CONSULT PRN (08:14)
[2022-08-19] MEDS: INSULIN ASPART PER UNIT SC SCH ×5 (08:45→23:46)
[2022-08-19] MEDS: NICOTINE 21 MG/24 HR TDSY TD SCH (08:49)
[2022-08-19] MEDS: UMECLIDINIUM BROMIDE 62.5MCG/BLISTER 7 PUFFS/INHALER INH SCH (08:50)
[2022-08-19] MEDS: SPIRONOLACTONE 25 MG TAB PO SCH (08:50)
[2022-08-19] MEDS: guaiFENesin 600 MG TABCR PO SCH ×2 (08:50→20:56)
[2022-08-19] MEDS: METOPROLOL SUCC 25MG EXT REL TAB PO SCH ×2 (08:50→20:56)
[2022-08-19] MEDS: TAMSULOSIN HCL 0.4 MG CAP PO SCH (08:50)
[2022-08-19] MEDS: MAGNESIUM OXIDE 400 MG TAB PO SCH (08:50)
[2022-08-19] MEDS: POTASSIUM CHLORIDE CRTAB 20 MEQ TABCR PO SCH ×3 (08:50→20:56)
[2022-08-19] MEDS: POLYETHYLENE (MIRALAX) 17 GM PACK PO SCH ×2 (08:50→20:58)
[2022-08-19] MEDS: FAMOTIDINE 20 MG TAB PO SCH (08:51)
[2022-08-19] MEDS: FINASTERIDE 5 MG TAB PO SCH (08:51)
[2022-08-19] MEDS: DULoxetine HCL 60 MG CAP PO SCH (08:51)
[2022-08-19] MEDS: GABAPENTIN 800 MG TAB PO SCH ×3 (08:51→20:56)
[2022-08-19] MEDS: FOLIC ACID 1 MG TAB PO SCH (08:51)
[2022-08-19] MEDS: FERROUS SULFATE 325 MG TAB PO SCH (08:51)
[2022-08-19] MEDS: ASPIRIN 81 MG ECTAB PO SCH (08:51)
[2022-08-19] MEDS: DOXYCYCLINE HYCLATE 100 MG CAP PO SCH ×2 (08:51→20:57)
[2022-08-19] MEDS: FLUTICASONE PROPIONATE NA SPR 16 GM BTL SCH (08:51)
[2022-08-19] MEDS: ISOSORBIDE DINITRATE 10 MG TAB PO SCH (08:51)
[2022-08-19] MEDS: ADVANCED PROBIOTIC 1250 MG CAPSULE PO SCH ×3 (08:52→20:56)
[2022-08-19] MEDS: CYCLOBENZAPRINE HCL 10 MG TAB PO PRN ×2 (08:59→20:57)
[2022-08-19] MEDS: methylPREDNISolone 40 MG in SYRINGE 0 ML IV SCH ×2 (08:59→20:57)
[2022-08-19] MEDS: DOCUSATE SODIUM 100 MG CAP PO SCH ×2 (08:59→20:57)
[2022-08-19] MEDS: buprenorphine HCL 8 MG SUBL SL SCH ×3 (08:59→20:57)
[2022-08-19] MEDS ORDERED: LANTUS PER UNIT CHARGE SQ ONE (09:00)
[2022-08-19] MEDS ORDERED: LANTUS PER UNIT CHARGE SQ SCH (09:00)
[2022-08-19] MEDS: ALBUTEROL HFA 8 GM INHALER INH PRN (09:06)
[2022-08-19] MEDS: BENZONATATE 100 MG CAPSULE PO PRN ×2 (10:42→18:34)
[2022-08-19] MEDS: guaiFENesin/CODEINE 100MG/10MG 5ML UDC PO PRN ×2 (10:42→18:34)
--- NOTE | 2022-08-19 11:22 | Pharmacy Report ---
Pharmacy Glycemic Short Note 2 - Date of Service August 19, 2022 - Glycemic Short BSG Results (Last 24 hours): 08/18/22 08/18/22 08/18/22 11:31 11:32 16:11 Glucose POC Glucose 336 H* 311 H* 234 H 08/18/22 08/18/22 08/19/22 20:51 20:54 06:16 Glucose 310 H* POC Glucose 316 H* 294 H 08/19/22 08/19/22 07:15 07:16 Glucose POC Glucose 327 H* 353 H* OUTPATIENT ANTIDIABETIC REGIMEN: * Lantus 50 units HS * Novolog SS * glipizide 10mg BID ASSESSMENT: 08/19 * Patient is a 52 y/o M admitted with SOB and found to have a UTI. Pertinent PMH includes HF, COPD, T2DM. Pharmacy is consulted for inpatient management of hyperglycemia. * BSGs in the last 24 hours have been elevated in 300s with the lowest of 234 at dinner yesterday * Patient started on methylprednisolone 40mg BID 08/17, already started on Lantus 50 units HS and Novolog (goal 110-130, CF 20, CR 5) * Patient received 165 units of insulin yesterday, of which 50 were basal * Fasting BSG 310 today, additional 50mg of Lantus ordered this AM * Lunchtime POC BSG still elevated at 339, repeat 344, 10 unit bolus of regular insulin IV ordered * Will continue Lantus at 50 units HS, add midnight and 0400 blood sugar checks * Novolog tightened to regimen below which has worked previously for patient in previous admission when also on steroids PLAN FOR INPATIENT GLYCEMIC CONTROL: * Hold outpatient oral diabetes medications * Basal insulin * Lantus 50 units SQ BID (will reassess need in AM) * Bolus insulin * NovoLog per scale ACHS or Q6hrs while NPO * Goal Range: Low 110 mg/dL - High 140 mg/dL * Correction Factor: 15 mg/dL/unit * Nutritional / Prandial insulin per carb ratio of 1 unit per 3 grams CHO consumed
[2022-08-19] MEDS ORDERED: INSULIN HUMAN REGULAR PER UNIT 10 UNITS in SYRINGE 9.9 ML IV ONE (12:00)
--- NOTE | 2022-08-19 14:28 | Cardiology Progress Note ---
Date of Service August 19, 2022 Assessment & Plan (1) (HFpEF) heart failure with preserved ejection fraction: (2) Hypokalemia: (3) COPD (chronic obstructive pulmonary disease): (4) Chronic indwelling Lloyd catheter: (5) SOB (shortness of breath): (6) History of pulmonary embolism: Plan Serum potassium within normal limits today. Serum sodium unchanged. Recommend restart oral furosemide 40 mg twice daily. Continue spironolactone and potassium supplementation. Metolazone will be remain on hold. Continue Coumadin for goal INR of 2.0-3.0. Management of URI as per internal medicine. Admission and Anticipated Discharge Date Admission Date: August 16, 2022 Subjective Patient seen examined the bedside. Continues to cough with minimal sputum production. States "I feel terrible". No orthopnea, or PND. Diuretic therapy placed on hold due to hypokalemia and hyponatremia. Review of Systems Review of Systems: All systems reviewed & are unremarkable except as noted in Subjective Physical Exam Constitutional: + obese Respiratory: no respiratory distress, no labored breathing and no retractions Auscultation: + rhonchi and + wheezes; no rales Cardiovascular: Rate/Rhythm: regular rate and regular rhythm Heart Sounds: normal S1 and normal S2; no murmur Vessels: no JVD and no carotid bruit Extremities: + edema (Trace B/L pedal edema, +B/L stasis changes) Gastrointestinal (Abdomen): Inspection/Auscultation: normal bowel sounds; abdomen not distended Percussion/Palpation: abdomen soft; abdomen nontender, no guarding and abdomen not rigid Neurologic: CN's II-XI intact bilaterally and moves all extremities; no focal motor deficits Results & Data ([facility]) Vital Signs (Past 12 Hours) Vital Signs Temp Pulse Pulse Resp BP BP Pulse Ox 08/19/22 12:15 36.6 C 75 20 144/74 H 94 08/19/22 07:39 66 08/19/22 07:39 08/19/22 07:50 36.5 C 70 19 134/82 94 08/19/22 03:29 36.4 C L 66 18 119/81 91 O2 Del Method O2 Flow Rate 08/19/22 12:15 Nasal Cannula 4 08/19/22 07:39 08/19/22 07:39 Nasal Cannula 4 08/19/22 07:50 Nasal Cannula 4 08/19/22 03:29 Nasal Cannula 4 (1) COPD (chronic obstructive pulmonary disease) COPD type: unspecified COPD Qualified Code(s): J44.9 - Chronic obstructive pu lmonary disease, unspecified
--- NOTE | 2022-08-19 15:01 | Hospitalist Progress Note ---
Date of Service August 19, 2022 Assessment & Plan (1) (HFpEF) heart failure with preserved ejection fraction: (2) Acute dyspnea: Plan 52-year-old male with PMH of T2DM, HTN, PE on Coumadin, diastolic CHF, chronic back pain, COPD, urinary retention with chronic Lloyd, depression, anxiety, subdural hematoma, subarachnoid hemorrhage, STEMI, recurrent multiple hospitalization presented 08/17 with complaint of shortness of breath and cough. 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 In the ED it was found that he had pulmonary congestion on chest x-ray. He is being managed for the following: Acute on chronic heart failure with preserved ejection fraction Presented 08/17 with shortness of breath with minimal exertion Admitting Chest x-ray suggestive of mild congestive changes; BNP 86 at presentation. 08/16 ECHO: EF of 55 to 60%, mild concentric LVH, RV is mildly dilated, RV systolic function is normal and poorly visualized valvular anatomy without significant stenosis or regurgitation Cardio on board, resume lasix at home dose, c/w aldactone and KCL; hold metolazone. Appreciate cardiology input and recommendation. Constipation: c/w oral laxatives, moving BM. SOB (shortness of breath): Likely COPD exacerbation Likely bronchitis History of DARIA, COPD, asthma and is complicated by CHF Worsening of wheezing and shortness of breath and requiring more oxygen still w/ b/l wheezing, c/w Nebs but jaci, c/w solu medrol. f/u 08/18 sputum Cx. Acute UTI (urinary tract infection) Chronic indwelling Lloyd Catheter Likely colonization, pending renal scan UA suggestive of infection at presentation; UCx w/ coag neg staph aureus w/ low counts of other mixed isabel. Pt w/ no fever or chills. He cannot take daptomycin and/or Zyvox due to severe interaction and vancomycin doses will be in nephrotoxic range for him. Initially was on Intravenous Zosyn, bactrim was instituted w/ ID consult. Bactrim DC'd 08/18. ID evaled 08/18, likely colonization, scan tract. Renal US sent, await. Brought to my attention by [email or web address] tech, pt declined. History of pulmonary embolism: INR is therapeutic, monitor closely. 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: Uncontrolled, A1C 8.8 this admission, pt w/ dietary non compliance. Glycemic pharmacy on board. Chronic pain syndrome, Right foot pain: Has been on Suboxone, No narcotics will be given routine, Continue with intravenous Tylenol DVT prophylaxis: On coumadin CODE STATUS: Full Admission and Anticipated Discharge Date Admission Date: August 16, 2022 Subjective Patient seen and examined at bedside as a follow-up of acute on chronic heart failure with preserved ejection fraction, shortness of breath. Patient was lying in bed, on 4 L nasal cannula oxygen, reports pain tired and exhausted with minimal exertion, upon discussing physical therapy he declines PT/OT today, need for PT/OT explained. Per RN, patient has been asking for multiple snacks throughout the night, made him aware that his blood glucose has been difficult to control, states that he will try to cut down on his snack. Does not appear to be in acute distress. Physical Exam Physical Exam: GENERAL: Alert and oriented x3. NAD, on 4L NC O2. Obese Class III. HEENT: No pallor, no icterus. Pupils equal, round and reactive to light. Oral mucosa moist. NECK: No JVD, no neck masses. HEART: S1 and S2 heard. Regular rate and rhythm. No murmur, no gallop. RESPIRATORY SYSTEM: Normal AP diameter. No accessory muscle use. + b/l wheezing, b/b crackles. ABDOMEN: Soft, bowel sounds present, nontender, no distention. CENTRAL NERVOUS SYSTEM: No facial droop. Speech is clear. Obeys simple commands. Moves extremities. EXTREMITIES: BLE chr skin changes, 1+ ble edema, no erythema seen. Results & Data Results & Data ([facility]) Vital Signs (Past 12 Hours) Vital Signs Temp Pulse Pulse Resp BP BP Pulse Ox 08/19/22 12:15 36.6 C 75 20 144/74 H 94 08/19/22 07:39 66 08/19/22 07:39 08/19/22 07:50 36.5 C 70 19 134/82 94 08/19/22 03:29 36.4 C L 66 18 119/81 91 O2 Del Method O2 Flow Rate 08/19/22 12:15 Nasal Cannula 4 08/19/22 07:39 08/19/22 07:39 Nasal Cannula 4 08/19/22 07:50 Nasal Cannula 4 08/19/22 03:29 Nasal Cannula 4
[2022-08-19] MEDS: FUROSEMIDE 40 MG TAB PO SCH (17:13)
[2022-08-19] MEDS: WARFARIN SOD 2.5 MG TAB PO SCH (17:13)
[2022-08-19] MEDS: ALBUT/IPRATROP 3MG/0.5MG NEB 3 ML VIAL INH SCH (19:37)
[2022-08-19] MEDS: ATORVASTATIN 40 MG TAB PO SCH (20:57)
[2022-08-19] MEDS: LANTUS PER UNIT CHARGE SQ SCH (20:57)
[2022-08-20] MEDS: COUGH DROP (SUGAR FREE) LOZ 24 LOZ/1 BOX BUCCAL PRN (02:55)
[2022-08-20] MEDS: INSULIN ASPART PER UNIT SC SCH ×5 (03:46→21:11)
[2022-08-20] MEDS: ACETAMINOPHEN 1,000 MG/100 ML VIAL IV PRN ×3 (06:16→21:04)
[2022-08-20] MEDS: PANTOprazole 40 MG TAB PO SCH (06:16)
[2022-08-20] MEDS: guaiFENesin/CODEINE 100MG/10MG 5ML UDC PO PRN ×3 (06:17→12:29)
[2022-08-20] MEDS: ALBUT/IPRATROP 3MG/0.5MG NEB 3 ML VIAL INH SCH ×4 (07:26→19:26)
[2022-08-20 07:28] LABS: Hematocrit (blood only) 40.9 % (40.1-51.0); Hemoglobin 13.2 g/dl (14.0-18.0); Mean Corpuscular Hgb Conc 32.3 g/dL (32.0-36.0); Mean Corpuscular Volume 83.8 fL (80.0-100.0); Mean Platelet Volume 10.8 fL (9.4-12.4); Platelet Count 219 K/uL (130-400); RDW Coefficient of Variation 16.7 % (11.5-14.5); RDW Standard Deviation 51.1 fL (36.4-46.3); Red Blood Count 4.88 M/uL (4.63-6.08); White Blood Count 16.82 K/ul (4.8-10.8)
[2022-08-20 07:40] LABS: INR 2.2 (0.9-1.1); Prothrombin Time 22.9 Seconds (9.0-12.0)
[2022-08-20 07:56] LABS: BUN Creatinine Ratio 30.3 (10-20); Calcium 10.5 mg/dl (8.5-10.1); Creatinine Clr Calc Pharmacy 171.9 ml/min; Est GFR (African American) 113.9 ml/min; Est GFR (Non-African American) 98.3 ml/min; Magnesium 1.9 mg/dl (1.7-2.4); Potassium 4.7 mmol/L (3.5-5.1)
[2022-08-20] MEDS: LORazepam 0.5 MG TAB PO PRN ×3 (09:58→21:09)
[2022-08-20] MEDS: BENZONATATE 100 MG CAPSULE PO PRN ×3 (09:58→20:36)
[2022-08-20] MEDS: ASPIRIN 81 MG ECTAB PO SCH (09:59)
[2022-08-20] MEDS: buprenorphine HCL 8 MG SUBL SL SCH ×3 (09:59→21:09)
[2022-08-20] MEDS: DULoxetine HCL 60 MG CAP PO SCH (10:00)
[2022-08-20] MEDS: DOCUSATE SODIUM 100 MG CAP PO SCH ×2 (10:00→21:09)
[2022-08-20] MEDS: FAMOTIDINE 20 MG TAB PO SCH (10:01)
[2022-08-20] MEDS: FERROUS SULFATE 325 MG TAB PO SCH (10:01)
[2022-08-20] MEDS: POLYETHYLENE (MIRALAX) 17 GM PACK PO SCH ×2 (10:02→20:36)
[2022-08-20] MEDS: FLUTICASONE PROPIONATE NA SPR 16 GM BTL SCH (10:03)
[2022-08-20] MEDS: MAGNESIUM OXIDE 400 MG TAB PO SCH (10:03)
[2022-08-20] MEDS: DOXYCYCLINE HYCLATE 100 MG CAP PO SCH ×2 (10:03→20:32)
[2022-08-20] MEDS: METOPROLOL SUCC 25MG EXT REL TAB PO SCH ×2 (10:04→20:35)
[2022-08-20] MEDS: FUROSEMIDE 40 MG TAB PO SCH ×2 (10:05→17:09)
[2022-08-20] MEDS: ISOSORBIDE DINITRATE 10 MG TAB PO SCH (10:05)
[2022-08-20] MEDS: FOLIC ACID 1 MG TAB PO SCH (10:06)
[2022-08-20] MEDS: FINASTERIDE 5 MG TAB PO SCH (10:06)
[2022-08-20] MEDS: GABAPENTIN 800 MG TAB PO SCH ×3 (10:07→20:33)
[2022-08-20] MEDS: ADVANCED PROBIOTIC 1250 MG CAPSULE PO SCH ×3 (10:07→20:34)
[2022-08-20] MEDS: POTASSIUM CHLORIDE CRTAB 20 MEQ TABCR PO SCH ×3 (10:08→20:36)
[2022-08-20] MEDS: TAMSULOSIN HCL 0.4 MG CAP PO SCH (10:09)
[2022-08-20] MEDS: SPIRONOLACTONE 25 MG TAB PO SCH (10:09)
[2022-08-20] MEDS: guaiFENesin 600 MG TABCR PO SCH ×2 (10:10→20:33)
[2022-08-20] MEDS: NICOTINE 21 MG/24 HR TDSY TD SCH (10:11)
[2022-08-20] MEDS: methylPREDNISolone 40 MG in SYRINGE 0 ML IV SCH ×2 (10:13→20:35)
[2022-08-20] MEDS: LANTUS PER UNIT CHARGE SQ SCH ×2 (10:31→21:12)
[2022-08-20] MEDS: UMECLIDINIUM BROMIDE 62.5MCG/BLISTER 7 PUFFS/INHALER INH SCH (10:34)
[2022-08-20] MEDS: CYCLOBENZAPRINE HCL 10 MG TAB PO PRN ×2 (10:34→21:09)
--- NOTE | 2022-08-20 13:20 | Cardiology Progress Note ---
Date of Service August 20, 2022 Assessment & Plan (1) COPD exacerbation: (2) (HFpEF) heart failure with preserved ejection fraction: (3) Hypokalemia: (4) Chronic indwelling Lloyd catheter: (5) SOB (shortness of breath): (6) History of pulmonary embolism: Plan Serum potassium trending upward to 4.7 today. Reduce potassium supplementation to 20 mEq twice daily (outpatient dose). Hypokalemia and magnesium Jadyn likely secondary to metolazone. Continue Aldactone and oral furosemide as previously ordered. Metolazone will be remain on hold. Utilize metolazone as needed to increase urine output with any signs of fluid overload, weight gain, or edema. Continue Coumadin for goal INR of 2.0-3.0. Management of COPD exacerbation/URI as per internal medicine. Cardiology will sign off. Please call with any further concerns/questions. Admission and Anticipated Discharge Date Admission Date: August 16, 2022 Subjective Patient seen examined at the bedside. Fluid balance -2.1 L. Transition to oral diuretic therapy yesterday. Serum potassium up to 4.7. Potassium supplementation titrated to 40 mg 3 times daily on admission (outpatient dose 20 mg twice daily). Cough and wheeze unchanged. Telemetry reveals sinus rhythm. Review of Systems Review of Systems: All systems reviewed & are unremarkable except as noted in Subjective Physical Exam Constitutional: + obese Respiratory: no respiratory distress, no labored breathing and no retractions Auscultation: + rhonchi and + wheezes; no rales Cardiovascular: Rate/Rhythm: regular rate and regular rhythm Heart Sounds: normal S1 and normal S2; no murmur Vessels: no JVD and no carotid bruit Extremities: + edema (Trace B/L pedal edema, +B/L stasis changes) Gastrointestinal (Abdomen): Inspection/Auscultation: normal bowel sounds; abdomen not distended Percussion/Palpation: abdomen soft; abdomen nontender, no guarding and abdomen not rigid Neurologic: CN's II-XI intact bilaterally and moves all extremities; no focal motor deficits Results & Data ([facility]) Vital Signs (Past 12 Hours) Vital Signs Temp Pulse Pulse Resp BP Pulse Ox O2 Del Method 08/20/22 12:42 66 98 Nasal Cannula 08/20/22 10:51 36.6 C 65 22 122/70 95 Nasal Cannula 08/20/22 08:00 36.5 C 61 20 145/75 H 95 Nasal Cannula 08/20/22 07:38 57 L 08/20/22 07:27 55 L 18 94 Nasal Cannula 08/20/22 03:29 36.5 C 64 20 130/78 94 Nasal Cannula O2 Flow Rate 08/20/22 12:42 4 08/20/22 10:51 4 08/20/22 08:00 4 08/20/22 07:38 08/20/22 07:27 4 08/20/22 03:29 4.0
--- NOTE | 2022-08-20 13:55 | Pharmacy Report ---
Pharmacy Glycemic Short Note 2 - Date of Service August 20, 2022 - Glycemic Short BSG Results (Last 24 hours): 08/19/22 08/19/22 08/19/22 16:11 20:37 23:41 Glucose POC Glucose 272 H 202 H 188 H 08/20/22 08/20/22 08/20/22 03:31 06:30 07:46 Glucose 203 H POC Glucose 218 H 205 H 08/20/22 08/20/22 11:18 11:20 Glucose POC Glucose 305 H* 298 H OUTPATIENT ANTIDIABETIC REGIMEN: * Lantus 50 units HS * Novolog SS * glipizide 10mg BID ASSESSMENT: 08/20: * Patient received 253 units of insulin yesterday, of which 100 were basal. * Fasting blood glucose was 205 yesterday, down from 310 the previous day, continue Lantus 50 units BID * Continuing on IV methylprednisolone 40mg BID * BSGs overall improved but still above goal, tightened Novolog parameters as outlined below 08/19 * Patient is a 52 y/o M admitted with SOB and found to have a UTI. Pertinent PMH includes HF, COPD, T2DM. Pharmacy is consulted for inpatient management of hyperglycemia. * BSGs in the last 24 hours have been elevated in 300s with the lowest of 234 at dinner yesterday * Patient started on methylprednisolone 40mg BID 08/17, already started on Lantus 50 units HS and Novolog (goal 110-130, CF 20, CR 5) * Patient received 165 units of insulin yesterday, of which 50 were basal * Fasting BSG 310 today, additional 50mg of Lantus ordered this AM * Lunchtime POC BSG still elevated at 339, repeat 344, 10 unit bolus of regular insulin IV ordered * Will continue Lantus at 50 units HS, add midnight and 0400 blood sugar checks * Novolog tightened to regimen below which has worked previously for patient in previous admission when also on steroids PLAN FOR INPATIENT GLYCEMIC CONTROL: * Hold outpatient oral diabetes medications * Basal insulin * Lantus 50 units SQ BID * Bolus insulin * NovoLog per scale ACHS or Q6hrs while NPO * Goal Range: Low 110 mg/dL - High 140 mg/dL * Correction Factor: 10 mg/dL/unit * Nutritional / Prandial insulin per carb ratio of 1 unit per 2.5 grams CHO consumed
[2022-08-20] MEDS: WARFARIN SOD 2.5 MG TAB PO SCH (15:06)
--- NOTE | 2022-08-20 15:59 | Hospitalist Progress Note ---
Date of Service August 20, 2022 Assessment & Plan (1) (HFpEF) heart failure with preserved ejection fraction: (2) Acute dyspnea: Plan 52-year-old male with PMH of T2DM, HTN, PE on Coumadin, diastolic CHF, chronic back pain, COPD, urinary retention with chronic Lloyd, depression, anxiety, subdural hematoma, subarachnoid hemorrhage, STEMI, recurrent multiple hospitalization presented 08/17 with complaint of shortness of breath and cough. The patient said he was exposed to COVID 1 week ago [employer] at admission. 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 In the ED it was found that he had pulmonary congestion on chest x-ray. He is being managed for the following: Acute on chronic heart failure with preserved ejection fraction Presented 08/17 with shortness of breath with minimal exertion Admitting Chest x-ray suggestive of mild congestive changes; BNP 86 at presentation. 08/16 ECHO: EF of 55 to 60%, mild concentric LVH, RV is mildly dilated, RV systolic function is normal and poorly visualized valvular anatomy without significant stenosis or regurgitation Cardio evaled, resume home lasix/home kcl/home Aldactone; hold metolazone, can use as needed for volume overload. Appreciate cardiology input and recommendation. Constipation: c/w oral laxatives, moving BM. SOB (shortness of breath): Likely COPD exacerbation Likely bronchitis History of DARIA, COPD, asthma and is complicated by CHF Worsening of wheezing and shortness of breath and requiring more oxygen still w/ b/l wheezing, c/w jaci Nebs, c/w umeclidinium c/w solu medrol. f/u 08/18 sputum Cx. Not improving, consult Pulm. Acute UTI (urinary tract infection) Chronic indwelling Lloyd Catheter Likely colonization, pending renal scan UA suggestive of infection at presentation; UCx w/ coag neg staph aureus w/ low counts of other mixed isabel. Pt w/ no fever or chills. He cannot take daptomycin and/or Zyvox due to severe interaction and vancomycin doses will be in nephrotoxic range for him. Initially was on Intravenous Zosyn, bactrim was instituted w/ ID consult. Bactrim DC'd 08/18. ID evaled 08/18, likely colonization, scan tract. Pt declined renal scan, no cva angle tenderness, no renal function compromise History of pulmonary embolism: INR is therapeutic, monitor closely. 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: Uncontrolled, A1C 8.8 this admission, pt w/ dietary non compliance. Glycemic pharmacy on board. Chronic pain syndrome, Right foot pain: Has been on Suboxone, No narcotics will be given routine, Continue with intravenous Tylenol DVT prophylaxis: On coumadin CODE STATUS: Full Admission and Anticipated Discharge Date Admission Date: August 16, 2022 Subjective Patient seen and examined at bedside as a follow-up of acute on chronic heart failure with preserved ejection fraction, shortness of breath. Patient was lying in bed, on 4 L nasal cannula oxygen, reports generalized pain, tired and exhausted with minimal exertion, agreeable to PT/OT today. reports being able to cut down on snacks. Does not appear to be in acute distress. Continues to decline renal scan, no cva tenderness on exam, renal function has been good. Physical Exam Physical Exam: GENERAL: Alert and oriented x3. NAD, on 4L NC O2. Obese Class III. HEENT: No pallor, no icterus. Pupils equal, round and reactive to light. Oral mucosa moist. NECK: No JVD, no neck masses. HEART: S1 and S2 heard. Regular rate and rhythm. No murmur, no gallop. RESPIRATORY SYSTEM: Normal AP diameter. No accessory muscle use. + b/l wheezing, b/b crackles. ABDOMEN: Soft, bowel sounds present, nontender, no distention. CENTRAL NERVOUS SYSTEM: No facial droop. Speech is clear. Obeys simple commands. Moves extremities. EXTREMITIES: BLE chr skin changes, 1+ ble edema, no erythema seen. No CVA angle tenderness Results & Data Results & Data ([facility]) Vital Signs (Past 12 Hours) Vital Signs Temp Pulse Pulse Resp BP Pulse Ox O2 Del Method 08/20/22 12:42 66 98 Nasal Cannula 08/20/22 10:51 36.6 C 65 22 122/70 95 Nasal Cannula 08/20/22 08:00 36.5 C 61 20 145/75 H 95 Nasal Cannula 08/20/22 07:38 57 L 08/20/22 07:27 55 L 18 94 Nasal Cannula O2 Flow Rate 08/20/22 12:42 4 08/20/22 10:51 4 08/20/22 08:00 4 08/20/22 07:38 08/20/22 07:27 4
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
[2022-08-20] MEDS: SODIUM CHLOR 7% 4 ML NEB NEB SCH (19:26)
[2022-08-20] MEDS: ACETYLCYSTEINE 20% INHAL SOLN 4ML ***DISPENSED BY RESP. INH SCH (19:45)
[2022-08-20] MEDS: ATORVASTATIN 40 MG TAB PO SCH (20:32)
[2022-08-21] MEDS: ALBUT/IPRATROP 3MG/0.5MG NEB 3 ML VIAL INH SCH ×7 (00:24→23:30)
[2022-08-21] MEDS: ACETAMINOPHEN 1,000 MG/100 ML VIAL IV PRN ×3 (06:13→22:14)
[2022-08-21] MEDS: guaiFENesin/CODEINE 100MG/10MG 5ML UDC PO PRN ×3 (06:13→22:19)
[2022-08-21] MEDS: PANTOprazole 40 MG TAB PO SCH (06:13)
[2022-08-21] MEDS: SODIUM CHLOR 7% 4 ML NEB NEB SCH ×2 (07:08→19:49)
[2022-08-21] MEDS: ACETYLCYSTEINE 20% INHAL SOLN 4ML ***DISPENSED BY RESP. INH SCH ×2 (07:08→19:49)
[2022-08-21] MEDS: INSULIN ASPART PER UNIT SC SCH ×5 (08:26→22:07)
[2022-08-21] MEDS: LANTUS PER UNIT CHARGE SQ SCH ×2 (08:27→22:06)
[2022-08-21] MEDS: LORazepam 0.5 MG TAB PO PRN ×2 (08:33→22:19)
[2022-08-21] MEDS: CYCLOBENZAPRINE HCL 10 MG TAB PO PRN ×2 (08:33→22:19)
[2022-08-21] MEDS: GABAPENTIN 800 MG TAB PO SCH ×3 (08:38→22:20)
[2022-08-21] MEDS: FUROSEMIDE 40 MG TAB PO SCH ×2 (08:38→17:09)
[2022-08-21] MEDS: SPIRONOLACTONE 25 MG TAB PO SCH (08:38)
[2022-08-21] MEDS: guaiFENesin 600 MG TABCR PO SCH ×2 (08:39→22:20)
[2022-08-21] MEDS: ISOSORBIDE DINITRATE 10 MG TAB PO SCH (08:39)
[2022-08-21] MEDS: FAMOTIDINE 20 MG TAB PO SCH (08:39)
[2022-08-21] MEDS: DULoxetine HCL 60 MG CAP PO SCH (08:40)
[2022-08-21] MEDS: FOLIC ACID 1 MG TAB PO SCH (08:40)
[2022-08-21] MEDS: ASPIRIN 81 MG ECTAB PO SCH (08:40)
[2022-08-21] MEDS: MAGNESIUM OXIDE 400 MG TAB PO SCH (08:41)
[2022-08-21] MEDS: FINASTERIDE 5 MG TAB PO SCH (08:41)
[2022-08-21] MEDS: FERROUS SULFATE 325 MG TAB PO SCH (08:41)
[2022-08-21] MEDS: ADVANCED PROBIOTIC 1250 MG CAPSULE PO SCH ×3 (08:42→22:20)
[2022-08-21] MEDS: TAMSULOSIN HCL 0.4 MG CAP PO SCH (08:42)
[2022-08-21] MEDS: methylPREDNISolone 40 MG in SYRINGE 0 ML IV SCH ×2 (08:42→22:20)
[2022-08-21] MEDS: METOPROLOL SUCC 25MG EXT REL TAB PO SCH ×2 (08:43→22:20)
[2022-08-21] MEDS: POTASSIUM CHLORIDE CRTAB 20 MEQ TABCR PO SCH ×2 (08:44→22:20)
[2022-08-21] MEDS: DOXYCYCLINE HYCLATE 100 MG CAP PO SCH ×2 (08:44→22:20)
[2022-08-21] MEDS: POLYETHYLENE (MIRALAX) 17 GM PACK PO SCH ×2 (08:45→22:21)
[2022-08-21] MEDS: UMECLIDINIUM/VILANTEROL 62.5/25MCG 7 PUFFS/INHALER INH SCH (08:46)
[2022-08-21] MEDS: NICOTINE 21 MG/24 HR TDSY TD SCH (08:46)
[2022-08-21] MEDS: FLUTICASONE PROPIONATE NA SPR 16 GM BTL SCH (08:47)
[2022-08-21] MEDS: buprenorphine HCL 8 MG SUBL SL SCH ×3 (08:48→22:20)
[2022-08-21] MEDS: BENZONATATE 100 MG CAPSULE PO PRN ×3 (08:53→22:19)
[2022-08-21] MEDS: DOCUSATE SODIUM 100 MG CAP PO SCH ×2 (08:53→22:20)
--- NOTE | 2022-08-21 09:06 | Pharmacy Report ---
Pharmacy Glycemic Short Note 2 - Date of Service August 21, 2022 - Glycemic Short BSG Results (Last 24 hours): 08/20/22 08/20/22 08/20/22 11:18 11:20 16:46 POC Glucose 305 H* 298 H 290 H 08/20/22 08/20/22 08/21/22 20:17 20:20 07:30 POC Glucose 324 H* 319 H* 230 H OUTPATIENT ANTIDIABETIC REGIMEN: * Lantus 50 units HS * Novolog SS * glipizide 10mg BID ASSESSMENT: 08/21: * Patient received total of 288 units of insulin yesterday, of which 100 units were basal insulin * Fasting BSG elevated at 230 mg/dL - will increase basal today ~30% * BSGs remain elevated yesterday with ongoing steroids, will tighten further to CF 6, CR of 2 08/20: * Patient received 253 units of insulin yesterday, of which 100 were basal. * Fasting blood glucose was 205 yesterday, down from 310 the previous day, continue Lantus 50 units BID * Continuing on IV methylprednisolone 40mg BID * BSGs overall improved but still above goal, tightened Novolog parameters as outlined below 08/19 * Patient is a 52 y/o M admitted with SOB and found to have a UTI. Pertinent PMH includes HF, COPD, T2DM. Pharmacy is consulted for inpatient management of hyperglycemia. * BSGs in the last 24 hours have been elevated in 300s with the lowest of 234 at dinner yesterday * Patient started on methylprednisolone 40mg BID 08/17, already started on Lantus 50 units HS and Novolog (goal 110-130, CF 20, CR 5) * Patient received 165 units of insulin yesterday, of which 50 were basal * Fasting BSG 310 today, additional 50mg of Lantus ordered this AM * Lunchtime POC BSG still elevated at 339, repeat 344, 10 unit bolus of regular insulin IV ordered * Will continue Lantus at 50 units HS, add midnight and 0400 blood sugar checks * Novolog tightened to regimen below which has worked previously for patient in previous admission when also on steroids PLAN FOR INPATIENT GLYCEMIC CONTROL: * Hold outpatient oral diabetes medications * Basal insulin - increase * Lantus 65 units SQ BID * Bolus insulin * NovoLog per scale ACHS or Q6hrs while NPO * Goal Range: Low 110 mg/dL - High 140 mg/dL * Correction Factor: 6 mg/dL/unit * Nutritional / Prandial insulin per carb ratio of 1 unit per 2 grams CHO consumed
[2022-08-21 09:23] LABS: Hematocrit (blood only) 42.7 % (40.1-51.0); Hemoglobin 13.9 g/dl (14.0-18.0); Mean Corpuscular Hemoglobin 27.5 pg (25.0-34.0); Mean Corpuscular Hgb Conc 32.6 g/dL (32.0-36.0); Mean Corpuscular Volume 84.6 fL (80.0-100.0); Mean Platelet Volume 10.4 fL (9.4-12.4); Platelet Count 220 K/uL (130-400); RDW Coefficient of Variation 16.8 % (11.5-14.5); RDW Standard Deviation 51.2 fL (36.4-46.3); Red Blood Count 5.05 M/uL (4.63-6.08); White Blood Count 19.09 K/ul (4.8-10.8)
[2022-08-21 09:36] LABS: INR 1.9 (0.9-1.1); Prothrombin Time 19.3 Seconds (9.0-12.0)
[2022-08-21 09:53] LABS: BUN Creatinine Ratio 32.6 (10-20); Calcium 10.4 mg/dl (8.5-10.1); Creatinine Clr Calc Pharmacy 171.9 ml/min; Est GFR (African American) 113.9 ml/min; Est GFR (Non-African American) 98.3 ml/min
--- NOTE | 2022-08-21 12:28 | Pulmonology Progress Note ---
Date of Service August 21, 2022 Assessment & Plan (1) COPD exacerbation: (2) SOB (shortness of breath): (3) (HFpEF) heart failure with preserved ejection fraction: (4) Acute on chronic respiratory failure with hypoxia and hypercapnia: (5) Wheezing: (6) Tobacco use: Plan --Acute on chronic respiratory failure with hypoxia Multifactorial Likely secondary to underlying COPD exacerbation and chronic bronchitis HFpEF also playing a role Respiratory bio fire negative on 08/17/2022 BNP 86 Absolute eosinophil count 550 on 07/29/2022 --Chronic hypercapnic respiratory failure Likely from underlying DARIA/OHS Will benefit from outpatient polysomnography Keep O2 saturation between 88-92% --History of DVT and PE in the past Or warfarin Plan: Patient is still wheezing but is decreasing amount Repeat chest x-ray today. Continue with hypertonic saline, Mucomyst nebulized along with flutter valve BiPAP nightly and as needed shortness of breath Please note the above document was generated using voice recognition software. It may contain grammatical, syntax or spelling errors.Any formal questions or concerns about the content, text or information contained within the body of this dictation should be directly addressed to the provider for clarification. Admission and Anticipated Discharge Date Admission Date: August 16, 2022 Subjective Patient seen and examined at bedside. No acute distress, no adverse events overnight. Did not use the BiPAP overnight but he is willing to try today. Denies any headache. Has been bringing up phlegm. No nausea or vomiting. No headache. Fair appetite. Urinating well. Review of Systems Review of Systems: All systems reviewed & are unremarkable except as noted in Subjective Physical Exam Physical Exam: Constitutional: No acute distress HEENT: EOMI, PERRLA Respiratory system: Decreased air entry bilaterally, positive expiratory wheeze bilaterally more on the left side, positive rhonchi, positive crackles bilateral lower lobes CVS: S1-S2 positive, no murmurs or gallops, accentuated P2 Abdomen: Soft, nontender, nondistended, positive bowel sounds x4, obese Extremities: +2 pulses bilaterally radialis/ dorsalis pedis, no cyanosis, +2 pitting edema bilateral lower extremity Neuro: Awake alert oriented x3 Psych: Normal mood and affect G/U: Positive Lloyd Skin: no rashes, warm and dry Lymphatic: no cervical or axillary lymphadenopathy Results & Data Results & Data ([facility]) Vital Signs (Past 12 Hours) Vital Signs Temp Pulse Pulse Pulse Resp BP Pulse Ox 08/21/22 10:54 64 19 95 08/21/22 10:54 66 18 93 08/21/22 08:00 08/21/22 08:01 36.6 C 69 19 136/71 94 08/21/22 07:36 72 08/21/22 07:11 84 18 93 08/21/22 02:54 36.5 C 61 20 127/61 94 O2 Del Method O2 Flow Rate 08/21/22 10:54 Nasal Cannula 3 08/21/22 10:54 3 08/21/22 08:00 Nasal Cannula 2 08/21/22 08:01 Nasal Cannula 3 08/21/22 07:36 08/21/22 07:11 Nasal Cannula 3 08/21/22 02:54 Nasal Cannula 4.0 Laboratory Results 08/21/22 08:26 08/21/22 08:26 PG Care Time/CCT Total # of Minutes Spent Total Time Spent with Patient: Total time spent is greater than 50% in coordination of care (as documented) at patient's floor/unit and/or counseling patient: Coding Level of Care Code 48020 Subseq Hosp Care Lvl 2 Diagnoses COPD exacerbation J44.1 SOB (shortness of breath) R06.02 (HFpEF) heart failure with preserved ejection fraction I50.30 Acute on chronic respiratory failure with hypoxia and hypercapnia J96.21; J96.22 Wheezing R06.2 Tobacco use Z72.0
--- NOTE | 2022-08-21 14:33 | XRay Report ---
XR chest 1V portable CLINICAL HISTORY: f/u COMPARISON STUDY: Chest radiograph August 16, 2022. FINDINGS: No pneumothorax is noted. Mild left basilar opacity is present. Cardiomegaly is unchanged. Pulmonary vascular congestion with possible mild pulmonary edema is unchanged. No definite pleural ef fusion. IMPRESSION: 1. Stable cardiomegaly and pulmonary vascular congestion with possible mild pulmonary edema. 2. Mild left basilar opacity. This favors epicardial fat pad or atelectasis. ACT 112: Negative or not required by law. Electronically signed by: Evelio Corbin M.D. 08/21/2022 2:31 PM
--- NOTE | 2022-08-21 14:46 | Hospitalist Progress Note ---
Date of Service August 21, 2022 Assessment & Plan (1) (HFpEF) heart failure with preserved ejection fraction: (2) Acute dyspnea: Plan 52-year-old male with PMH of T2DM, HTN, PE on Coumadin, diastolic CHF, chronic back pain, COPD, urinary retention with chronic Lloyd, depression, anxiety, subdural hematoma, subarachnoid hemorrhage, STEMI, recurrent multiple hospitalization presented 08/17 with complaint of shortness of breath and cough. 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 In the ED it was found that he had pulmonary congestion on chest x-ray. He is being managed for the following: Acute on chronic heart failure with preserved ejection fraction Presented 08/17 with shortness of breath with minimal exertion Admitting Chest x-ray suggestive of mild congestive changes; BNP 86 at presentation. 08/16 ECHO: EF of 55 to 60%, mild concentric LVH, RV is mildly dilated, RV systolic function is normal and poorly visualized valvular anatomy without significant stenosis or regurgitation Cardio evaled, resume home lasix/home kcl/home Aldactone; hold metolazone, can use as needed for volume overload. Appreciate cardiology input and recommendation. Constipation: c/w oral laxatives, moving BM. SOB (shortness of breath): Likely COPD exacerbation Likely bronchitis History of DARIA, COPD, asthma and is complicated by CHF Worsening of wheezing and shortness of breath and requiring more oxygen still w/ b/l wheezing, c/w jaci Nebs, c/w umeclidinium c/w solu medrol. f/u 08/18 sputum Cx. Pulm on board. Acute UTI (urinary tract infection) Chronic indwelling Lloyd Catheter Likely colonization, pending renal scan UA suggestive of infection at presentation; UCx w/ coag neg staph aureus w/ low counts of other mixed isabel. Pt w/ no fever or chills. He cannot take daptomycin and/or Zyvox due to severe interaction and vancomycin doses will be in nephrotoxic range for him. Initially was on Intravenous Zosyn, bactrim was instituted w/ ID consult. Bactrim DC'd 08/18. ID evaled 08/18, likely colonization, scan tract. Pt declined renal scan, no cva angle tenderness, no renal function compromise History of pulmonary embolism: INR is therapeutic, monitor closely. 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: Uncontrolled, A1C 8.8 this admission, pt w/ dietary non compliance. Glycemic pharmacy on board. Chronic pain syndrome, Right foot pain: Has been on Suboxone, No narcotics will be given routine, Continue with intravenous Tylenol DVT prophylaxis: On Coumadin CODE STATUS: Full Admission and Anticipated Discharge Date Admission Date: August 16, 2022 Subjective Patient seen and examined at bedside as a follow-up of acute on chronic heart failure with preserved ejection fraction, shortness of breath. Patient was lying in bed, on 3 L O2 via BPAP, reports generalized pain, improving strength. reports being able to cut down on snacks, appreciated. Does not appear to be in acute distress. Continues to decline renal scan, no cva tenderness on exam, renal function has been good. Physical Exam Physical Exam: GENERAL: Alert and oriented x3. NAD, on 3L, BPAP. Obese Class III. HEENT: No pallor, no icterus. Pupils equal, round and reactive to light. Oral mucosa moist. NECK: No JVD, no neck masses. HEART: S1 and S2 heard. Regular rate and rhythm. No murmur, no gallop. RESPIRATORY SYSTEM: Normal AP diameter. No accessory muscle use. + b/l wheezing, b/b crackles. ABDOMEN: Soft, bowel sounds present, nontender, no distention. CENTRAL NERVOUS SYSTEM: No facial droop. Speech is clear. Obeys simple commands. Moves extremities. EXTREMITIES: BLE chr skin changes, 1+ ble edema, no erythema seen. No CVA angle tenderness Results & Data Results & Data ([facility]) Vital Signs (Past 12 Hours) Vital Signs Temp Pulse Pulse Pulse Resp BP Pulse Ox 08/21/22 12:29 36.7 C 68 19 131/62 93 08/21/22 10:54 64 19 95 08/21/22 10:54 66 18 93 08/21/22 08:00 08/21/22 08:01 36.6 C 69 19 136/71 94 08/21/22 07:36 72 08/21/22 07:11 84 18 93 08/21/22 02:54 36.5 C 61 20 127/61 94 O2 Del Method O2 Flow Rate 08/21/22 12:29 Room Air 08/21/22 10:54 Nasal Cannula 3 08/21/22 10:54 3 08/21/22 08:00 Nasal Cannula 2 08/21/22 08:01 Nasal Cannula 3 08/21/22 07:36 08/21/22 07:11 Nasal Cannula 3 08/21/22 02:54 Nasal Cannula 4.0
[2022-08-21] MEDS: WARFARIN SOD 2.5 MG TAB PO SCH (17:09)
[2022-08-21] MEDS: ATORVASTATIN 40 MG TAB PO SCH (22:19)
[2022-08-22] MEDS ORDERED: INSULIN ASPART PER UNIT SC SCH
[2022-08-22] MEDS: ALBUT/IPRATROP 3MG/0.5MG NEB 3 ML VIAL INH SCH ×6 (03:01→22:46)
[2022-08-22 06:56] LABS: Hematocrit (blood only) 41.8 % (40.1-51.0); Hemoglobin 13.5 g/dl (14.0-18.0); Mean Corpuscular Hemoglobin 27.6 pg (25.0-34.0); Mean Corpuscular Hgb Conc 32.3 g/dL (32.0-36.0); Mean Corpuscular Volume 85.3 fL (80.0-100.0); Mean Platelet Volume 10.5 fL (9.4-12.4); Platelet Count 204 K/uL (130-400); RDW Standard Deviation 52.4 fL (36.4-46.3); White Blood Count 18.02 K/ul (4.8-10.8)
[2022-08-22] MEDS: SODIUM CHLOR 7% 4 ML NEB NEB SCH ×2 (07:10→19:39)
[2022-08-22] MEDS: ACETYLCYSTEINE 20% INHAL SOLN 4ML ***DISPENSED BY RESP. INH SCH ×2 (07:11→19:39)
[2022-08-22 07:25] LABS: INR 1.5 (0.9-1.1); Prothrombin Time 15.4 Seconds (9.0-12.0)
[2022-08-22 07:42] LABS: BUN Creatinine Ratio 32.3 (10-20); Calcium 10.3 mg/dl (8.5-10.1); Creatinine Clr Calc Pharmacy 154.6 ml/min; Est GFR (African American) 101.1 ml/min; Est GFR (Non-African American) 87.2 ml/min; Potassium 4.8 mmol/L (3.5-5.1)
[2022-08-22] MEDS ORDERED: WARFARIN SOD 2.5 MG TAB PO ONE (08:01)
[2022-08-22] MEDS: ACETAMINOPHEN 1,000 MG/100 ML VIAL IV PRN ×2 (08:40→16:39)
[2022-08-22] MEDS: UMECLIDINIUM/VILANTEROL 62.5/25MCG 7 PUFFS/INHALER INH SCH (08:43)
[2022-08-22] MEDS: buprenorphine HCL 8 MG SUBL SL SCH ×3 (08:43→21:44)
[2022-08-22] MEDS: guaiFENesin/CODEINE 100MG/10MG 5ML UDC PO PRN ×3 (08:43→22:39)
[2022-08-22] MEDS: FLUTICASONE PROPIONATE NA SPR 16 GM BTL SCH (08:43)
[2022-08-22] MEDS: BENZONATATE 100 MG CAPSULE PO PRN ×2 (08:43→16:38)
[2022-08-22] MEDS: CYCLOBENZAPRINE HCL 10 MG TAB PO PRN ×2 (08:43→21:44)
[2022-08-22] MEDS: MAGNESIUM OXIDE 400 MG TAB PO SCH (08:47)
[2022-08-22] MEDS: POTASSIUM CHLORIDE CRTAB 20 MEQ TABCR PO SCH ×2 (08:47→21:45)
[2022-08-22] MEDS: methylPREDNISolone 40 MG in SYRINGE 0 ML IV SCH (08:47)
[2022-08-22] MEDS: TAMSULOSIN HCL 0.4 MG CAP PO SCH (08:47)
[2022-08-22] MEDS: PANTOprazole 40 MG TAB PO SCH (08:47)
[2022-08-22] MEDS: METOPROLOL SUCC 25MG EXT REL TAB PO SCH ×2 (08:47→21:45)
[2022-08-22] MEDS: ADVANCED PROBIOTIC 1250 MG CAPSULE PO SCH ×3 (08:47→21:45)
[2022-08-22] MEDS: SPIRONOLACTONE 25 MG TAB PO SCH (08:47)
[2022-08-22] MEDS: ASPIRIN 81 MG ECTAB PO SCH (08:48)
[2022-08-22] MEDS: GABAPENTIN 800 MG TAB PO SCH ×3 (08:48→21:45)
[2022-08-22] MEDS: guaiFENesin 600 MG TABCR PO SCH ×2 (08:48→21:45)
[2022-08-22] MEDS: FAMOTIDINE 20 MG TAB PO SCH (08:48)
[2022-08-22] MEDS: DULoxetine HCL 60 MG CAP PO SCH (08:48)
[2022-08-22] MEDS: FUROSEMIDE 40 MG TAB PO SCH ×2 (08:48→16:38)
[2022-08-22] MEDS: FINASTERIDE 5 MG TAB PO SCH (08:48)
[2022-08-22] MEDS: FERROUS SULFATE 325 MG TAB PO SCH (08:48)
[2022-08-22] MEDS: POLYETHYLENE (MIRALAX) 17 GM PACK PO SCH ×2 (08:48→21:45)
[2022-08-22] MEDS: NICOTINE 21 MG/24 HR TDSY TD SCH (08:48)
[2022-08-22] MEDS: DOXYCYCLINE HYCLATE 100 MG CAP PO SCH ×2 (08:48→21:45)
[2022-08-22] MEDS: ISOSORBIDE MONO EXTENDED REL 30 MG TABCR PO SCH (08:48)
[2022-08-22] MEDS: FOLIC ACID 1 MG TAB PO SCH (08:48)
[2022-08-22] MEDS: DOCUSATE SODIUM 100 MG CAP PO SCH ×2 (08:49→21:44)
[2022-08-22] MEDS: INSULIN ASPART PER UNIT SC SCH ×4 (08:49→21:39)
[2022-08-22] MEDS ORDERED: LANTUS PER UNIT CHARGE SQ SCH (09:00)
--- NOTE | 2022-08-22 10:39 | Pulmonology Progress Note ---
Date of Service August 22, 2022 Assessment & Plan (1) COPD exacerbation: (2) SOB (shortness of breath): (3) (HFpEF) heart failure with preserved ejection fraction: (4) Acute on chronic respiratory failure with hypoxia and hypercapnia: (5) Wheezing: (6) Tobacco use: Plan --Acute on chronic respiratory failure with hypoxia Multifactorial Likely secondary to underlying COPD exacerbation and chronic bronchitis HFpEF also playing a role Respiratory bio fire negative on 08/17/2022 BNP 86 Absolute eosinophil count 550 on 07/29/2022 --Chronic hypercapnic respiratory failure Likely from underlying DARIA/OHS Will benefit from outpatient polysomnography Keep O2 saturation between 88-92% --COPD On Spiriva at home Recommend Stiolto/Anoro on discharge --History of DVT and PE in the past Or warfarin Plan: Patient did use BiPAP at night. Would recommend continuous BiPAP at night and when he is taking a nap RT did give me an update that the patient has not been using his Hypertonic saline and Mucomyst. Importance of being compliant with medication explained. I will go down on Solu-Medrol to 40 mg once a day. Change Spiriva to Stiolto on discharge Sleep study as an outpatient Case discussed with Dr. Gomez Please note the above document was generated using voice recognition software. It may contain grammatical, syntax or spelling errors.Any formal questions or concerns about the content, text or information contained within the body of this dictation should be directly addressed to the provider for clarification. Admission and Anticipated Discharge Date Admission Date: August 16, 2022 Subjective Patient seen and examined at bedside. No acute distress. No adverse events overnight Was saturating 93% on room air. He is using flutter valve. Bringing up clear phlegm. Denies any hemoptysis No chest pain, no chest tightness No headache, no blurry vision Review of Systems Review of Systems: All systems reviewed & are unremarkable except as noted in Subjective Physical Exam Physical Exam: Constitutional: No acute distress HEENT: EOMI, PERRLA Respiratory system: Decreased air entry bilaterally, positive expiratory wheeze bilaterally more on the left side, positive rhonchi, positive crackles bilateral lower lobes CVS: S1-S2 positive, no murmurs or gallops, accentuated P2 Abdomen: Soft, nontender, nondistended, positive bowel sounds x4, obese Extremities: +2 pulses bilaterally radialis/ dorsalis pedis, no cyanosis, +2 pitting edema bilateral lower extremity Neuro: Awake alert oriented x3 Psych: Normal mood and affect G/U: Positive Lloyd Skin: no rashes, warm and dry Lymphatic: no cervical or axillary lymphadenopathy Results & Data Results & Data ([facility]) Vital Signs (Past 12 Hours) Vital Signs Temp Pulse Pulse Resp BP BP Pulse Ox 08/22/22 08:00 08/22/22 07:00 55 L 08/22/22 07:11 57 L 16 94 08/22/22 07:07 36.4 C L 57 L 20 120/76 94 08/22/22 03:34 36.5 C 64 18 145/76 H 96 08/22/22 00:32 36.4 C L 67 20 147/75 H 97 O2 Del Method O2 Flow Rate 08/22/22 08:00 Room Air 08/22/22 07:00 08/22/22 07:11 08/22/22 07:07 Nasal Cannula 3 08/22/22 03:34 Nasal Cannula 3 08/22/22 00:32 Nasal Cannula 3 Laboratory Results 08/22/22 06:29 08/22/22 06:29 PG Care Time/CCT Total # of Minutes Spent Total Time Spent with Patient: Total time spent is greater than 50% in coordination of care (as documented) at patient's floor/unit and/or counseling patient: Coding Level of Care Code 48433 Subseq Hosp Care Lvl 2 Diagnoses COPD exacerbation J44.1 SOB (shortness of breath) R06.02 (HFpEF) heart failure with preserved ejection fraction I50.30 Acute on chronic respiratory failure with hypoxia and hypercapnia J96.21; J96.22 Wheezing R06.2 Tobacco use Z72.0
--- NOTE | 2022-08-22 13:36 | Hospitalist Progress Note ---
Date of Service August 22, 2022 Assessment & Plan (1) (HFpEF) heart failure with preserved ejection fraction: (2) Acute dyspnea: Plan 52-year-old male with PMH of T2DM, HTN, PE on Coumadin, diastolic CHF, chronic back pain, COPD, urinary retention with chronic Lloyd, depression, anxiety, subdural hematoma, subarachnoid hemorrhage, STEMI, recurrent multiple hospitalization presented 08/17 with complaint of shortness of breath and cough. 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 In the ED it was found that he had pulmonary congestion on chest x-ray. He is being managed for the following: Acute on chronic heart failure with preserved ejection fraction Presented 08/17 with shortness of breath with minimal exertion Admitting Chest x-ray suggestive of mild congestive changes; BNP 86 at presentation. 08/16 ECHO: EF of 55 to 60%, mild concentric LVH, RV is mildly dilated, RV systolic function is normal and poorly visualized valvular anatomy without significant stenosis or regurgitation Cardio evaled, resume home lasix/home kcl/home Aldactone; hold metolazone, can use as needed for volume overload. Appreciate cardiology input and recommendation. Constipation: c/w oral laxatives, moving BM. SOB (shortness of breath): Likely COPD exacerbation Likely bronchitis History of DARIA, COPD, asthma and is complicated by CHF Improving wheeze, on RA. d/w pulm, needs OP sleep study, and then likely will need BPAP. solumedrol 40 mg daily x3d and 20mg/day x 3d. Change spiriva to stiolto on DC. 08/18 Sputum Cx no growth. Pt declining mucomyst and hypertonic saline nebs, explained the importance of compliance. ?? Pulm f/u as OP. Acute UTI (urinary tract infection) Chronic indwelling Lloyd Catheter Likely colonization, pending renal scan UA suggestive of infection at presentation; UCx w/ coag neg staph aureus w/ low counts of other mixed isabel. Pt w/ no fever or chills. He cannot take daptomycin and/or Zyvox due to severe interaction and vancomycin doses will be in nephrotoxic range for him. Initially was on Intravenous Zosyn, bactrim was instituted w/ ID consult. Bactrim DC'd 08/18. ID evaled 08/18, likely colonization, scan tract. Pt declined renal scan, no cva angle tenderness, no renal function compromise History of pulmonary embolism: INR is therapeutic, monitor closely. 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: Uncontrolled, A1C 8.8 this admission, pt w/ dietary non compliance. Glycemic pharmacy on board. Chronic pain syndrome, Right foot pain: Has been on Suboxone, No narcotics will be given routine, Continue with intravenous Tylenol DVT prophylaxis: On Coumadin, added extra dose of warfarin today CODE STATUS: Full Dispo: PT/OT to have follow up eval, CM to assist. Expect in 1 day, Med/surg. Admission and Anticipated Discharge Date Admission Date: August 16, 2022 Subjective Patient seen and examined at bedside as a follow-up of acute on chronic heart failure with preserved ejection fraction, shortness of breath. Patient was lying in bed, on RA, reports generalized pain, improving strength. reports being able to cut down on snacks, appreciated. Does not appear to be in acute distress. Continues to decline renal scan, no cva tenderness on exam, renal function has been good. Noncompliance w/ nebs, diet and fluid restrictions noted repeatedly per RN. He stated he wanted to go home to RN which he declined to me when asked, states that he doesn't have ride to home today, states he might be able to get it tomorrow. He seems frustrated on the restriction on snacks (d/t his uncontrolled sugar) and fluid (d/t his CHF and volume overload status). Physical Exam Physical Exam: GENERAL: Alert and oriented x3. NAD, on RA. Obese Class III. HEENT: No pallor, no icterus. Pupils equal, round and reactive to light. Oral mucosa moist. NECK: No JVD, no neck masses. HEART: S1 and S2 heard. Regular rate and rhythm. No murmur, no gallop. RESPIRATORY SYSTEM: Normal AP diameter. No accessory muscle use. + b/l wheezing, b/b crackles. Both have decreased. ABDOMEN: Soft, bowel sounds present, nontender, no distention. CENTRAL NERVOUS SYSTEM: No facial droop. Speech is clear. Obeys simple commands. Moves extremities. EXTREMITIES: BLE chr skin changes, 1+ ble edema, no erythema seen. No CVA angle tenderness Results & Data Results & Data ([facility]) Vital Signs (Past 12 Hours) Vital Signs Temp Pulse Pulse Resp BP BP Pulse Ox 08/22/22 11:11 36.4 C L 57 L 19 120/76 94 08/22/22 11:05 66 16 93 08/22/22 08:00 08/22/22 07:00 55 L 08/22/22 07:11 57 L 16 94 08/22/22 07:07 36.4 C L 57 L 20 120/76 94 08/22/22 03:34 36.5 C 64 18 145/76 H 96 O2 Del Method O2 Flow Rate 08/22/22 11:11 Room Air 08/22/22 11:05 Room Air 08/22/22 08:00 Room Air 08/22/22 07:00 08/22/22 07:11 08/22/22 07:07 Nasal Cannula 3 08/22/22 03:34 Nasal Cannula 3
[2022-08-22] MEDS: WARFARIN SOD 2.5 MG TAB PO SCH (16:38)
[2022-08-22] MEDS: LORazepam 0.5 MG TAB PO PRN (16:38)
[2022-08-22] MEDS: ATORVASTATIN 40 MG TAB PO SCH (21:45)
[2022-08-23] MEDS: ACETAMINOPHEN 1,000 MG/100 ML VIAL IV PRN ×3 (01:29→20:43)
[2022-08-23] MEDS: LORazepam 0.5 MG TAB PO PRN ×2 (01:29→10:26)
[2022-08-23] MEDS ORDERED: INSULIN ASPART PER UNIT SC SCH (02:00)
[2022-08-23] MEDS: ALBUT/IPRATROP 3MG/0.5MG NEB 3 ML VIAL INH SCH ×6 (04:06→23:29)
[2022-08-23] MEDS: PANTOprazole 40 MG TAB PO SCH (05:59)
[2022-08-23 06:38] LABS: INR 1.3 (0.9-1.1)
[2022-08-23 07:02] LABS: BUN Creatinine Ratio 37.4 (10-20); Est GFR (African American) 111.9 ml/min; Est GFR (Non-African American) 96.6 ml/min; Potassium 4.1 mmol/L (3.5-5.1)
[2022-08-23] MEDS: SODIUM CHLOR 7% 4 ML NEB NEB SCH ×2 (07:18→18:00)
--- NOTE | 2022-08-23 07:23 | Pulmonology Progress Note ---
Date of Service August 23, 2022 Assessment & Plan (1) COPD exacerbation: (2) SOB (shortness of breath): (3) (HFpEF) heart failure with preserved ejection fraction: (4) Acute on chronic respiratory failure with hypoxia and hypercapnia: (5) Wheezing: (6) Tobacco use: Plan --Acute on chronic respiratory failure with hypoxia Multifactorial Likely secondary to underlying COPD exacerbation and chronic bronchitis HFpEF also playing a role Respiratory bio fire negative on 08/17/2022 BNP 86 Absolute eosinophil count 550 on 07/29/2022 --Chronic hypercapnic respiratory failure Likely from underlying DARIA/OHS Will benefit from outpatient polysomnography Keep O2 saturation between 88-92% --COPD On Spiriva at home Recommend Stiolto/Anoro on discharge --History of DVT and PE in the past Or warfarin Plan: Patient did not use BiPAP at night. Is willing to use it right now while he is napping. RN made aware about it Can transition to p.o. prednisone 40 mg for 3 days followed by 20 mg for 3 days starting tomorrow. Change Spiriva to Stiolto/Anoro on discharge. Albuterol as needed. Hypertonic saline along with flutter valve will also help on discharge Sleep study as an outpatient Case discussed with Dr. Gomez No further recommendations from pulmonary perspective. We will sign off, please call directly with any questions Please note the above document was generated using voice recognition software. It may contain grammatical, syntax or spelling errors.Any formal questions or concerns about the content, text or information contained within the body of this dictation should be directly addressed to the provider for clarification. Admission and Anticipated Discharge Date Admission Date: August 16, 2022 Subjective Patient seen and examined at bedside. No acute distress, no adverse events overnight. Patient has been using nebulized therapy. He did not use BiPAP overnight He was somnolent at the time of examination but answer all the questions appropriately Denies any chest pain, shortness of breath is improved Fair appetite. Review of Systems Review of Systems: All systems reviewed & are unremarkable except as noted in Subjective Physical Exam Physical Exam: Constitutional: No acute distress HEENT: EOMI, PERRLA Respiratory system: Decreased air entry bilaterally, positive expiratory wheeze bilaterally more on the left side (improved), positive rhonchi, positive crackles bilateral lower lobes CVS: S1-S2 positive, no murmurs or gallops, accentuated P2 Abdomen: Soft, nontender, nondistended, positive bowel sounds x4, obese Extremities: +2 pulses bilaterally radialis/ dorsalis pedis, no cyanosis, +1 pitting edema bilateral lower extremity Neuro: Awake alert oriented x3 Psych: Normal mood and affect G/U: Positive Lloyd Skin: no rashes, warm and dry Lymphatic: no cervical or axillary lymphadenopathy Results & Data Results & Data ([facility]) Vital Signs (Past 12 Hours) Vital Signs Temp Pulse Resp BP Pulse Ox O2 Del Method O2 Flow Rate 08/23/22 07:19 65 18 95 Nasal Cannula 3 08/23/22 04:07 Nasal Cannula 08/22/22 19:45 Nasal Cannula, CPAP 2 08/22/22 22:46 73 20 97 Nasal Cannula 3 08/22/22 21:42 36.5 C 75 20 137/68 96 Nasal Cannula 2 08/22/22 19:42 36.4 C L 67 16 156/83 H 96 Nasal Cannula 2 08/22/22 19:39 67 16 96 Nasal Cannula 3 Laboratory Results 08/22/22 06:29 08/23/22 05:57 PG Care Time/CCT Total # of Minutes Spent Total Time Spent with Patient: Total time spent is greater than 50% in coordination of care (as documented) at patient's floor/unit and/or counseling patient: Coding Level of Care Code 29700 Subseq Hosp Care Lvl 2 Diagnoses COPD exacerbation J44.1 SOB (shortness of breath) R06.02 (HFpEF) heart failure with preserved ejection fraction I50.30 Acute on chronic respiratory failure with hypoxia and hypercapnia J96.21; J96.22 Wheezing R06.2 Tobacco use Z72.0
[2022-08-23] MEDS ORDERED: WARFARIN SOD 2.5 MG TAB PO ONE (08:14)
[2022-08-23] MEDS ORDERED: methylPREDNISolone 40 MG in SYRINGE 0 ML IV SCH (09:00)
[2022-08-23] MEDS: guaiFENesin 600 MG TABCR PO SCH ×2 (09:54→20:44)
[2022-08-23] MEDS: POTASSIUM CHLORIDE CRTAB 20 MEQ TABCR PO SCH ×2 (09:54→20:45)
[2022-08-23] MEDS: METOPROLOL SUCC 25MG EXT REL TAB PO SCH ×2 (09:54→20:45)
[2022-08-23] MEDS: ADVANCED PROBIOTIC 1250 MG CAPSULE PO SCH ×3 (09:55→20:44)
[2022-08-23] MEDS: FINASTERIDE 5 MG TAB PO SCH (09:55)
[2022-08-23] MEDS: FERROUS SULFATE 325 MG TAB PO SCH (09:55)
[2022-08-23] MEDS: FOLIC ACID 1 MG TAB PO SCH (09:55)
[2022-08-23] MEDS: ISOSORBIDE MONO EXTENDED REL 30 MG TABCR PO SCH (09:55)
[2022-08-23] MEDS: TAMSULOSIN HCL 0.4 MG CAP PO SCH (09:55)
[2022-08-23] MEDS: DOXYCYCLINE HYCLATE 100 MG CAP PO SCH ×2 (09:55→20:45)
[2022-08-23] MEDS: MAGNESIUM OXIDE 400 MG TAB PO SCH (09:56)
[2022-08-23] MEDS: FAMOTIDINE 20 MG TAB PO SCH (09:56)
[2022-08-23] MEDS: SENNA 8.6 MG TAB PO PRN (09:56)
[2022-08-23] MEDS: NICOTINE 21 MG/24 HR TDSY TD SCH (09:56)
[2022-08-23] MEDS: SPIRONOLACTONE 25 MG TAB PO SCH (09:56)
[2022-08-23] MEDS: ASPIRIN 81 MG ECTAB PO SCH (09:56)
[2022-08-23] MEDS: FLUTICASONE PROPIONATE NA SPR 16 GM BTL SCH (09:57)
[2022-08-23] MEDS: POLYETHYLENE (MIRALAX) 17 GM PACK PO SCH ×2 (09:57→20:45)
[2022-08-23] MEDS: FUROSEMIDE 40 MG TAB PO SCH ×2 (09:57→17:40)
[2022-08-23] MEDS: DULoxetine HCL 60 MG CAP PO SCH (09:57)
[2022-08-23] MEDS: UMECLIDINIUM/VILANTEROL 62.5/25MCG 7 PUFFS/INHALER INH SCH (09:58)
[2022-08-23] MEDS: ALBUTEROL HFA 8 GM INHALER INH PRN (09:58)
[2022-08-23] MEDS: DOCUSATE SODIUM 100 MG CAP PO SCH ×2 (09:59→20:45)
[2022-08-23] MEDS: INSULIN ASPART PER UNIT SC SCH ×4 (10:05→20:43)
[2022-08-23] MEDS: buprenorphine HCL 8 MG SUBL SL SCH ×3 (10:11→20:44)
[2022-08-23] MEDS: LANTUS PER UNIT CHARGE SQ SCH (10:12)
[2022-08-23] MEDS: GABAPENTIN 800 MG TAB PO SCH ×3 (10:12→20:45)
[2022-08-23] MEDS: CYCLOBENZAPRINE HCL 10 MG TAB PO PRN ×2 (10:13→20:45)
[2022-08-23] MEDS: guaiFENesin/CODEINE 100MG/10MG 5ML UDC PO PRN ×3 (10:26→23:32)
[2022-08-23] MEDS: ACETYLCYSTEINE 20% INHAL SOLN 4ML ***DISPENSED BY RESP. INH SCH (11:00)
--- NOTE | 2022-08-23 14:09 | Hospitalist Progress Note ---
Date of Service August 23, 2022 Assessment & Plan (1) (HFpEF) heart failure with preserved ejection fraction: (2) Acute dyspnea: Plan 52-year-old male with PMH of T2DM, HTN, PE on Coumadin, diastolic CHF, chronic back pain, COPD, urinary retention with chronic Lloyd, depression, anxiety, subdural hematoma, subarachnoid hemorrhage, STEMI, recurrent multiple hospitalization presented 08/17 with complaint of shortness of breath and cough. 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 In the ED it was found that he had pulmonary congestion on chest x-ray. He is being managed for the following: Acute on chronic heart failure with preserved ejection fraction Presented 08/17 with shortness of breath with minimal exertion Admitting Chest x-ray suggestive of mild congestive changes; BNP 86 at presentation. 08/16 ECHO: EF of 55 to 60%, mild concentric LVH, RV is mildly dilated, RV systolic function is normal and poorly visualized valvular anatomy without significant stenosis or regurgitation Cardio evaled, resume home lasix/home kcl/home Aldactone; hold metolazone, can use as needed for volume overload. Appreciate cardiology input and recommendation. Pt w/ dietary and fluid restriction noncompliance. Maintian FR of 1800 mL. Constipation: c/w oral laxatives, moving BM. SOB (shortness of breath): Likely COPD exacerbation Likely bronchitis History of DARIA, COPD, asthma and is complicated by CHF Improving wheeze, on RA. Needs OP sleep study, and then likely will need BPAP. solumedrol 40 mg daily x3d and 20mg/day x 3d from rj. Change spiriva to stiolto on DC. 08/18 Sputum Cx no growth. Pt declining mucomyst and hypertonic saline nebs, explained the importance of compliance. Now using them. ?? Pulm f/u as OP. Acute UTI (urinary tract infection) Chronic indwelling Lloyd Catheter Likely colonization, pending renal scan UA suggestive of infection at presentation; UCx w/ coag neg staph aureus w/ low counts of other mixed isabel. Pt w/ no fever or chills. He cannot take daptomycin and/or Zyvox due to severe interaction and vancomycin doses will be in nephrotoxic range for him. Initially was on Intravenous Zosyn, bactrim was instituted w/ ID consult. Bactrim DC'd 08/18. ID evaled 08/18, likely colonization, scan tract. Pt declined renal scan, no cva angle tenderness, no renal function compromise Pt afebrile, wbc wnl. History of pulmonary embolism: INR is subtherapeutic on his regular warfarin dose despite being on doxycycline which is interesting. RN communicated to ensure he takes his warfarin. Will follow on PT/INR daily. He will need to f/u w/ coumadin clinic closely upon DC. 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: Uncontrolled, A1C 8.8 this admission, pt w/ dietary non compliance. Glycemic pharmacy on board. Chronic pain syndrome, Right foot pain: Has been on Suboxone, No narcotics will be given routine, Continue with intravenous Tylenol DVT prophylaxis: On Coumadin, added extra dose of warfarin again today, need to ensure pt is taking coumadin CODE STATUS: Full Dispo: PT/OT to have follow up eval, CM to assist. likely dc rj. Admission and Anticipated Discharge Date Admission Date: August 16, 2022 Subjective Patient seen and examined at bedside as a follow-up of acute on chronic heart failure with preserved ejection fraction, shortness of breath. Patient was lying in bed, on RA, reports generalized pain as usual.Does not appear to be in acute distress. Noncompliance w/ nebs, diet and fluid restrictions noted repeatedly per RN. Today he is stating he doesn't have ride and doesn't have anybody to take care of him at home, he ensured that he will be able to manage ride rj and he will have somebody to take care of him at home tomorrow. Was asking for issues w/ insulin affordability, relayed to CM who confirmed she took care of the issue. He seems frustrated on the restriction on snacks (d/t his uncontrolled sugar) and fluid (d/t his CHF and volume overload status). Physical Exam Physical Exam: GENERAL: Alert and oriented x3. NAD, on 3L NC O2. Obese Class III. HEENT: No pallor, no icterus. Pupils equal, round and reactive to light. Oral mucosa moist. NECK: No JVD, no neck masses. HEART: S1 and S2 heard. Regular rate and rhythm. No murmur, no gallop. RESPIRATORY SYSTEM: Normal AP diameter. No accessory muscle use. + b/l wheezing, b/b crackles. Both have are improving. ABDOMEN: Soft, bowel sounds present, nontender, no distention. CENTRAL NERVOUS SYSTEM: No facial droop. Speech is clear. Obeys simple commands. Moves extremities. EXTREMITIES: BLE chr skin changes, 1+ ble edema, no erythema seen. No CVA angle tenderness Results & Data Results & Data ([facility]) Vital Signs (Past 12 Hours) Vital Signs Temp Pulse Resp BP Pulse Ox O2 Del Method O2 Flow Rate 08/23/22 08:00 Nasal Cannula 2 08/23/22 11:03 70 18 95 Nasal Cannula 3 08/23/22 08:09 36.5 C 67 16 129/75 97 Nasal Cannula 4 08/23/22 07:19 65 18 95 Nasal Cannula 3 08/23/22 04:07 Nasal Cannula
[2022-08-23] MEDS: WARFARIN SOD 2.5 MG TAB PO SCH (15:36)
[2022-08-23] MEDS: ATORVASTATIN 40 MG TAB PO SCH (20:45)
[2022-08-23] MEDS ORDERED: LANTUS PER UNIT CHARGE SQ SCH (21:00)
[2022-08-24] MEDS: ALBUT/IPRATROP 3MG/0.5MG NEB 3 ML VIAL INH SCH ×3 (02:20→11:00)
[2022-08-24] MEDS: PANTOprazole 40 MG TAB PO SCH (05:41)
[2022-08-24] MEDS: SODIUM CHLOR 7% 4 ML NEB NEB SCH (07:08)
[2022-08-24] MEDS: ACETYLCYSTEINE 20% INHAL SOLN 4ML ***DISPENSED BY RESP. INH SCH ×2 (07:35→11:00)
[2022-08-24 08:24] LABS: INR 1.6 (0.9-1.1); Prothrombin Time 16.6 Seconds (9.0-12.0)
[2022-08-24 08:29] LABS: Calcium 9.5 mg/dl (8.5-10.1); Creatinine Clr Calc Pharmacy 189.8 ml/min; Est GFR (African American) 118.4 ml/min; Est GFR (Non-African American) 102.2 ml/min; Magnesium 2.2 mg/dl (1.7-2.4); Potassium 4.2 mmol/L (3.5-5.1)
[2022-08-24] MEDS ORDERED: predniSONE 20 MG TAB PO SCH (09:00)
[2022-08-24] MEDS: UMECLIDINIUM/VILANTEROL 62.5/25MCG 7 PUFFS/INHALER INH SCH (09:10)
[2022-08-24] MEDS: FOLIC ACID 1 MG TAB PO SCH (09:11)
[2022-08-24] MEDS: ADVANCED PROBIOTIC 1250 MG CAPSULE PO SCH (09:11)
[2022-08-24] MEDS: FERROUS SULFATE 325 MG TAB PO SCH (09:11)
[2022-08-24] MEDS: DOXYCYCLINE HYCLATE 100 MG CAP PO SCH (09:11)
[2022-08-24] MEDS: DULoxetine HCL 60 MG CAP PO SCH (09:11)
[2022-08-24] MEDS: FINASTERIDE 5 MG TAB PO SCH (09:11)
[2022-08-24] MEDS: TAMSULOSIN HCL 0.4 MG CAP PO SCH (09:11)
[2022-08-24] MEDS: ASPIRIN 81 MG ECTAB PO SCH (09:11)
[2022-08-24] MEDS: GABAPENTIN 800 MG TAB PO SCH (09:12)
[2022-08-24] MEDS: NICOTINE 21 MG/24 HR TDSY TD SCH (09:12)
[2022-08-24] MEDS: ISOSORBIDE MONO EXTENDED REL 30 MG TABCR PO SCH (09:12)
[2022-08-24] MEDS: SPIRONOLACTONE 25 MG TAB PO SCH (09:12)
[2022-08-24] MEDS: FUROSEMIDE 40 MG TAB PO SCH (09:12)
[2022-08-24] MEDS: MAGNESIUM OXIDE 400 MG TAB PO SCH (09:12)
[2022-08-24] MEDS: METOPROLOL SUCC 25MG EXT REL TAB PO SCH (09:12)
[2022-08-24] MEDS: buprenorphine HCL 8 MG SUBL SL SCH (09:13)
[2022-08-24] MEDS: INSULIN ASPART PER UNIT SC SCH ×2 (09:14→12:54)
[2022-08-24] MEDS: FAMOTIDINE 20 MG TAB PO SCH (09:15)
[2022-08-24] MEDS: DOCUSATE SODIUM 100 MG CAP PO SCH (09:15)
[2022-08-24] MEDS: FLUTICASONE PROPIONATE NA SPR 16 GM BTL SCH (09:16)
[2022-08-24] MEDS: guaiFENesin 600 MG TABCR PO SCH (09:16)
[2022-08-24] MEDS: POLYETHYLENE (MIRALAX) 17 GM PACK PO SCH (09:17)
[2022-08-24] MEDS: LANTUS PER UNIT CHARGE SQ SCH (09:17)
[2022-08-24] MEDS: CYCLOBENZAPRINE HCL 10 MG TAB PO PRN (09:44)
[2022-08-24] MEDS: ACETAMINOPHEN 1,000 MG/100 ML VIAL IV PRN (09:44)
[2022-08-24] MEDS: BENZONATATE 100 MG CAPSULE PO PRN (09:44)
[2022-08-24] MEDS: LORazepam 0.5 MG TAB PO PRN (09:44)
[2022-08-24] MEDS: POTASSIUM CHLORIDE CRTAB 20 MEQ TABCR PO SCH (09:44)
[2022-08-24] MEDS ORDERED: WARFARIN SOD 2.5 MG TAB PO ONE (10:30)
[2022-08-24] MEDS: guaiFENesin/CODEINE 100MG/10MG 5ML UDC PO PRN (10:42)
--- NOTE | 2022-08-24 12:17 | Discharge Summary ---
Date of Service August 24, 2022 Admission HPI Per Admitting Provider CHIEF COMPLAINT: Shortness of breath and cough. HISTORY OF PRESENT ILLNESS: This is a 52-year-old male with a past medical history significant for type 2 diabetes, hypertension, history of PE, on Coumadin; diastolic CHF, chronic back pain, history of COPD, urinary retention with chronic Lloyd, depression, anxiety, history of subdural hematoma, subarachnoid hemorrhage, history of St elevated NH, history of recurrent multiple hospitalizations, presents with shortness of breath and cough. The patient says he was exposed to COVID 1 week ago as his daughter was diagnosed with COVID and was worried about he got COVID and walking a few steps, making him short of breath and coughing and came to ER.COVID test came back negative, but he looks like he has fluid and pulmonary congestion on chest x-ray and UTI. The patient saturating 95% on 4 liters, resting comfortably, able to talk and give history. He has chronic pain. Complains of chronic headache, chronic back pain, belly pain, leg pains, chest pains. No nausea or vomiting. No runny nose, has some sore throat, no fevers. Appetite is okay. No nausea, no vomiting, constipated. Still smoking. ALLERGIES: CEFEPIME, DAPTOMYCIN, FENTANYL, NALOXONE, TYLENOL, IBUPROFEN, VALPROIC ACID. PAST MEDICAL HISTORY: As mentioned above. PAST SURGICAL HISTORY: Colonoscopy, EGD with endoscopic ultrasound, foot surgery, repair of left tendon repair, history of appendectomy, lumbar laminectomy. MEDICATIONS: The patient is on albuterol 2 puffs inhalation q. 4 hours p.r.n., aspirin 81 mg p.o. daily, atorvastatin 80 mg p.o. p.m., benzonatate 100 mg p.o. t.i.d. p.r.n., buprenorphine 8 mg sublingual t.i.d., cyclobenzaprine 10 mg p.o. b.i.d. p.r.n., Colace 100 mg p.o. b.i.d., duloxetine 60 mg p.o. daily, famotidine 20 mg p.o. daily, ferrous sulfate 325 mg p.o. a.m., finasteride 5 mg p.o. a.m., Flonase 2 sprays intranasal daily, folic acid 1 mg p.o. a.m., Lasix 40 mg p.o. b.i.d., gabapentin 800 mg p.o. t.i.d., glipizide 10 mg p.o. b.i.d., Mucinex 1200 mg p.o. b.i.d., hydroxyzine 25 mg p.o. b.i.d. p.r.n., insulin NovoLog FlexPen subcutaneous t.i.d., Lantus 15 units at bedtime, DuoNebs q. 6 hours p.r.n., isosorbide dinitrate 30 mg p.o. daily, Lactinex 1 tablet p.o. t.i.d., lorazepam 0.5 mg p.o. q. 8 hours p.r.n., magnesium oxide 400 mg p.o. daily, metolazone 2.5 mg p.o. as directed, metoprolol succinate 75 mg p.o. b.i.d., nitroglycerin 0.4 mg sublingual p.r.n., nystatin topical t.i.d. p.r.n., omeprazole 20 mg p.o. daily, Zofran 4 mg p.o. q. 8 hours p.r.n., Pyridium 200 mg p.o. q. 8 hours p.r.n., MiraLax 17 g p.o. a.m., potassium chloride 20 mEq p.o. b.i.d., Senna 8.6 mg p.o. daily p.r.n., Spiriva 1 puff inhalation daily, spironolactone 25 mg p.o. daily, Flomax 0.8 mg p.o. a.m., Coumadin 2.5 mg as directed. FAMILY HISTORY: Significant for sister has breast cancer; maternal grandfather has NH, maternal grandmother has NH, paternal grandfather has lung disorder. Mother has musculoskeletal disorder, father has aneurysm. SOCIAL HISTORY: Smoked 2 packs a day, currently smokes 1 pack a day, currently not drinking alcohol. Opiate dependence. REVIEW OF SYSTEMS: As per HPI. Rest of the review of symptoms is negative. Admission Exam Per Admitting Provider GENERAL: The patient is morbidly obese, not in acute distress. VITAL SIGNS: Temperature 36.8, pulse 75, respiratory rate 26, blood pressure 127/58, oxygen 95% on 4 liters. HEENT: Pupils equal and reactive to light. Oral mucosa moist. NECK: No JVD, no neck masses. CARDIOVASCULAR: S1 and S2 heard. Regular rate and rhythm. No murmur, no gallop. RESPIRATORY SYSTEM: Normal AP diameter. No accessory muscle use. Mild occasional bilateral wheezing, no crackles. ABDOMEN: Soft, bowel sounds present, nontender, no distention. CENTRAL NERVOUS SYSTEM: Cranial nerves II through XII are grossly intact, nonfocal. EXTREMITIES: Bilateral lower extremity gross pedal edema present. Chronic skin changes seen. Principal Diagnosis Acute on chronic heart failure with preserved ejection fraction COPD exacerbation Bronchitis Chronic Lloyd status Discharge Exam GENERAL: Alert and oriented x3. NAD, on RA. Obese Class III. HEENT: No pallor, no icterus. Pupils equal, round and reactive to light. Oral mucosa moist. NECK: No JVD, no neck masses. HEART: S1 and S2 heard. Regular rate and rhythm. No murmur, no gallop. RESPIRATORY SYSTEM: Normal AP diameter. No accessory muscle use. no wheezing, crackles resolved. ABDOMEN: Soft, bowel sounds present, nontender, no distention. CENTRAL NERVOUS SYSTEM: No facial droop. Speech is clear. Obeys simple commands. Moves extremities. EXTREMITIES: BLE chr skin changes, trace ble edema, no erythema seen. No CVA angle tenderness Discharge Data Allergies Allergy/AdvReac Type Severity Reaction Status Date / Time cefepime Allergy Intermediate rash Verified 07/29/22 15:49 daptomycin Allergy Intermediate rash Verified 07/29/22 15:49 fentanyl Allergy Intermediate RASH/HIVES/SKIN Verified 07/29/22 15:49 REDNESS naloxone AdvReac Severe extremely Verified 07/29/22 15:49 sick acetaminophen [From Tylenol] AdvReac Intermediate IRRITATES Verified 07/29/22 15:49 & UPSET STOMACH ibuprofen AdvReac Intermediate Nausea Verified 07/29/22 15:49 valproic acid AdvReac Intermediate PANCREATITS Verified 07/29/22 15:49 Consultations 08/16/22 19:49 ED Decision to Admit Stat 08/17/22 08:00 Consult Cardiology Routine 08/18/22 10:50 Consult Infectious Diseases Routine 08/20/22 15:58 Consult Pulmonology Routine Hospital Course (1) (HFpEF) heart failure with preserved ejection fraction: (2) Acute dyspnea: Plan 52-year-old male with PMH of T2DM, HTN, PE on Coumadin, diastolic CHF, chronic back pain, COPD, urinary retention with chronic Lloyd, depression, anxiety, subdural hematoma, subarachnoid hemorrhage, STEMI, recurrent multiple hospitalization presented 08/17 with complaint of shortness of breath and cough. 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 In the ED it was found that he had pulmonary congestion on chest x-ray. He was managed for the following: Acute on chronic heart failure with preserved ejection fraction Presented 08/17 with shortness of breath with minimal exertion Admitting Chest x-ray suggestive of mild congestive changes; BNP 86 at presentation. 08/16 ECHO: EF of 55 to 60%, mild concentric LVH, RV is mildly dilated, RV systolic function is normal and poorly visualized valvular anatomy without significant stenosis or regurgitation Cardio evaled, resume home lasix/home kcl/home Aldactone; hold metolazone, can use as needed for volume overload. Appreciate cardiology input and recommendation. Pt w/ dietary and fluid restriction noncompliance. Maintian FR of 1800 mL. Pt has been counselled many times. Constipation: c/w oral laxatives, moving BM. SOB (shortness of breath): Likely COPD exacerbation Likely bronchitis History of DARIA, COPD, asthma and is complicated by CHF Improving wheeze, on RA. Needs OP sleep study, and then likely will need BPAP. solumedrol 40 mg daily x3d and 20mg/day x 3d from rj. Changed spiriva to stiolto on DC. 08/18 Sputum Cx no growth. Pt declining mucomyst and hypertonic saline nebs, explained the importance of compliance. Now using them. Acute UTI (urinary tract infection) Chronic indwelling Lloyd Catheter Likely colonization, pending renal scan UA suggestive of infection at presentation; UCx w/ coag neg staph aureus w/ low counts of other mixed isabel. Pt w/ no fever or chills. He cannot take daptomycin and/or Zyvox due to severe interaction and vancomycin doses will be in nephrotoxic range for him. Initially was on Intravenous Zosyn, bactrim was instituted w/ ID consult. Bactrim DC'd 08/18. ID evaled 08/18, likely colonization, scan tract. Pt declined renal scan, no cva angle tenderness, no renal function compromise Pt afebrile, wbc wnl. History of pulmonary embolism: INR is subtherapeutic on his regular warfarin dose despite being on doxycycline which is interesting. RN communicated to ensure he takes his warfarin. He will need to f/u w/ coumadin clinic closely upon DC. 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: Uncontrolled, A1C 8.8 this admission, pt w/ dietary non compliance. Glycemic pharmacy on board. Chronic pain syndrome, Right foot pain: Has been on Suboxone, No narcotics will be given routine, Continue with intravenous Tylenol DVT prophylaxis: On Coumadin CODE STATUS: Full Is being discharged home with following instruction at the point of discharge: Follow-up with your primary care physician within a week time and likely you will need blood test CBC/CMP/magnesium/phosphorus level at the PCP office. Follow-up with your cardiology doctor as an outpatient in 2 to 4 weeks upon discharge. Follow-up with urology doctor as an outpatient for your ongoing management of Lloyd catheter. Maintain heart healthy diet, maintain dietary discretion, maintain fluid restriction of 1.8 L/day [Fluids meaning all the liquids including coffee, juices and water etc]. Complete your prednisone taper. Your Spiriva is changed to Stiolto. You will benefit from outpatient sleep study, coordinate with your primary care physican regarding setting up this test. Follow-up with your Coumadin clinic in 2 to 3 days upon discharge and you will need your PT/INR drawn and evaluated. Take your medications as prescribed. Home Health Attestation I certify that this patient is under my care and that I, or a physicians farm assistant working with me, had a face to-face encounter that meets the home health [id number] encounter requirements with this patient. The encounter with the patient was in whole, or in part, for the following medical condition, which is the primary reason for home health care (list medical condition): I certify that, based on my findings, the following services are medically necessary home health services: My clinical findings support the need for the above services because: Further, I certify that my clinical findings support that this patient is homebound (i.e. absences from home require considerable and taxing effort and are for medical reasons or scientology services or infrequently or of short duration when for other reasons) because: Certification for Home Health Services: Based on the above findings, I certify that this patient is confined to the home and needs intermittent shelter care, physical therapy and/or speech therapy or continues to need occupational therapy. The patient is under my care, and I have initiated the establishment of the plan of care. This patient will be followed by a physician who will periodically review the plan of care. Total Time Total Time Spent Total Time Spent (In Minutes): 50 Discharge Plan Discharge Items Patient Disposition: Home - Self-Care Reason For Visit: SOB Discharge Diagnosis: Acute on chronic heart failure with preserved ejection fraction COPD exacerbation Bronchitis Chronic Lloyd status Activity: Resume your previous activity Non-emergency contact: Primary Care Provider Call non-emergency contact if: you have any medication questions, your symptoms worsen and your temperature is above 101 Follow-up/Referrals: Roberto Askew MD [Primary Care Provider] - Diet: Carb Consistent or DM2 and Heart Healthy Addtl Attending Provider Instructions: Follow-up with your primary care physician within a week time and likely you will need blood test CBC/CMP/magnesium/phosphorus level at the PCP office. Follow-up with your cardiology doctor as an outpatient in 2 to 4 weeks upon discharge. Follow-up with urology doctor as an outpatient for your ongoing management of Lloyd catheter. Maintain heart healthy diet, maintain dietary discretion, maintain fluid restriction of 1.8 L/day [Fluids meaning all the liquids including coffee, juices and water etc]. Complete your prednisone taper. Your Spiriva is changed to Stiolto. You will benefit from outpatient sleep study, coordinate with your primary care physican regarding setting up this test. Follow-up with your Coumadin clinic in 2 to 3 days upon discharge and you will need your PT/INR drawn and evaluated. Take your medications as prescribed. Pending Studies at Discharge: No Stand-Alone Forms: [employer], Smoking Cessation Medications and DC Order Prescriptions: New doxycycline hyclate 100 mg Capsule 100 mg PO BID 1 Days Qty: 2 0RF Stiolto Respimat 2.5-2.5 mcg/actuation mist 2 puff inhalation DAILY Qty: 4 0RF prednisone 20 mg Tablet 40 mg PO QAM 2 Days Qty: 4 0RF Rx Instructions: 2 tabs daily for 2 days, another prescription to follow after this completes. prednisone 20 mg Tablet 20 mg PO QAM 3 Days Qty: 3 0RF Rx Instructions: 1 tab daily for 3 days starting 08/27/22. codeine-guaifenesin [Guaiatussin AC] 10-100 mg/5 mL Liquid 5 ml PO Q6H PRN (Reason: cough) 5 Days Qty: 120 0RF sodium chloride 7 % Solution For Nebulization 4 ml NEB BIDR 7 Days Qty: 120 0RF Continued tamsulosin [Flomax] 0.4 mg capsule 0.8 mg PO QAM Qty: 180 3RF polyethylene glycol 3350 [Miralax] 17 gram powder in packet 17 g PO QAM nitroglycerin [Nitrostat] 0.4 mg tablet, sublingual 0.4 mg Sublingual DIRECTED PRN (Reason: CHEST PAIN) Rx Instructions: PLACE ONE TABLET UNDER THE TONGUE EVERY 5 MINUTES FOR UP TO 3 DOSES OVER 15 MINUTES IF NEEDED FOR CHEST PAIN nystatin 100,000 unit/gram Powder 1 applic TOPICAL TID PRN (Reason: Skin Irritation) Rx Instructions: APPLY DIRECTED TO ABDOMINAL FOLDS cyclobenzaprine 10 mg Tablet 10 mg PO BID PRN (Reason: Muscle Spasm) ipratropium-albuterol 0.5 mg-3 mg(2.5 mg base)/3 mL Solution For Nebulization 3 ml INHALATION Q6H PRN (Reason: Shortness Of Breath Or Wheezing) docusate sodium 100 mg Capsule 100 mg PO BID duloxetine 60 mg capsule,delayed release(DR/EC) 60 mg PO DAILY famotidine 20 mg tablet 20 mg PO DAILY fluticasone propionate 50 mcg/actuation spray,suspension 2 spray Intranasal DAILY aspirin [Ecotrin Low Strength] 81 mg tablet,delayed release (DR/EC) 81 mg PO QAM finasteride 5 mg tablet 5 mg PO QAM metoprolol succinate 50 mg Tablet Extended Release 24 Hr 75 mg PO BID spironolactone 25 mg Tablet 25 mg PO QAM atorvastatin 80 mg tablet 80 mg PO QPM Rx Instructions: TAKE THIS MEDICATION EVERY AFTERNOON sennosides [senna] 8.6 mg Tablet 8.6 mg PO DAILY PRN (Reason: Constipation) folic acid 1 mg Tablet 1 mg PO QAM furosemide [Lasix] 40 mg tablet 40 mg PO BID albuterol sulfate 90 mcg/actuation Hfa Aerosol Inhaler 2 puff INHALATION Q4 PRN (Reason: Dyspnea) omeprazole 20 mg Capsule,Delayed Release(Dr/Ec) 20 mg PO DAILYBB gabapentin 800 mg tablet 800 mg PO TID buprenorphine HCl 8 mg tablet, sublingual 8 mg SUBLINGUAL TID Rx Instructions: Per Dr 1st glipizide 10 mg tablet 10 mg PO BID urea [Ureacin-20] 20 % Cream 1 applic TOPICAL BID magnesium oxide 400 mg (241.3 mg magnesium) tablet 400 mg PO DAILY ferrous sulfate 325 mg (65 mg iron) Tablet 325 mg PO QAM Rx Instructions: Take with breakfast hydroxyzine HCl 25 mg Tablet 25 mg PO QID PRN (Reason: Anxiety) ondansetron HCl 4 mg Tablet 4 mg PO Q8H PRN (Reason: NAUSEA/VOMITING) benzonatate 100 mg Capsule 100 mg PO TID PRN (Reason: cough) Qty: 10 0RF metolazone 2.5 mg tablet 2.5 mg PO UD Qty: 12 1RF Rx Instructions: take 1 tab 3x a week (wed/wed/wed) Lactinex 1 million cell tablet,chewable 1 tab PO TID Qty: 30 0RF isosorbide dinitrate 30 mg tablet 30 mg PO DAILY phenazopyridine [Pyridium] 200 mg tablet 200 mg PO Q8H PRN (Reason: pain) Qty: 15 0RF warfarin 5 mg tablet 2.5 - 5 mg PO UD Rx Instructions: take 5 mg in the evening every wednesday and take 2.5 mg every other evening of the week guaifenesin [Mucinex] 600 mg Tablet Extended Release 12hr 1,200 mg PO BID potassium chloride 20 mEq tablet extended release 20 meq PO BID lorazepam 0.5 mg tablet 0.5 mg PO Q8 PRN (Reason: Anxiety) Qty: 6 0RF insulin aspart U-100 [Novolog Flexpen U-100 Insulin] 100 unit/mL (3 mL) Insulin Pen 1 unit SUBCUT TIDM Qty: 30 0RF Rx Instructions: inject 1 unit uner the skin three times a day with meals. units as per sliding scale as instructed by provider to cover for steroid coverage when warranted insulin glargine [Lantus Solostar U-100 Insulin] 100 unit/mL (3 mL) Insulin Pen 50 unit SC HS 30 Days Qty: 15 0RF Discontinued Spiriva with HandiHaler 18 mcg capsule, w/inhalation device 1 puff inhalation QAM Discharge Orders: Discharge Order (Routine); Ordered 08/24/22 Ordered By: Henrietta Gomez Admission Data Admit Date/Time: 08/16/22 22:43 Attending Provider: Henrietta Gomez Admit Provider: Everardo Ibarra Primary Care Provider: Roberto Askew Other Providers: Everardo Ibarra ; Jacob Penn ; Peterson Palafox ; Luis F Maciel ; Flaco Last I. ; Jin Olivier II ; Liliam Romero ; Owen Badillo ; Robert De Guzman ; Steve Almendarez ; Ranjeet Mackey
[2022-08-27] MEDS ORDERED: predniSONE 20 MG TAB PO SCH (09:00)
== END 2022-08-24 13:25 | disposition home or self-care (01) | DRG 291 ==
LOC: ED 15:53 → EDINP 22:43 → SUATTDRO 22:43 → 2S 08-17 02:56 → 3E 08-22 19:02

== ENCOUNTER 2022-09-19 12:51 | Inpatient (IN) ==
--- NOTE | 2022-09-19 13:19 | Emergency Department Note ---
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 vascular congestion is unchanged. Mild left basilar opacity favors atelectasis or epicardial fat pad. There is no consolidation to suggest pneumonia. IMPRESSION: No change in appearance of the chest. Cardiomegaly with pulmonary vascular congestion. ACT 112: Negative or not required by law. Electronically signed by: Evelio Corbin M.D. 09/19/2022 2:36 PM Discharge Plan Visit Data Chief Complaint: Shortness of Breath/Dyspnea Stated Complaint: SOB ED Provider: Nader Loomis Discharge Problem: Acute exacerbation of chronic obstructive pulmonary disease, Acute hypoxemic respiratory failure, Hypomagnesemia, Hypophosphatemia Patient Disposition: Admitted As Inpatient Forms Stand Alone Forms: [facility] Prescriptions Prescriptions: No Action tamsulosin [Flomax] 0.4 mg capsule 0.8 mg PO QAM Qty: 180 3RF polyethylene glycol 3350 [Miralax] 17 gram powder in packet 17 g PO QAM nitroglycerin [Nitrostat] 0.4 mg tablet, sublingual 0.4 mg Sublingual DIRECTED PRN (Reason: CHEST PAIN) Rx Instructions: PLACE ONE TABLET UNDER THE TONGUE EVERY 5 MINUTES FOR UP TO 3 DOSES OVER 15 MINUTES IF NEEDED FOR CHEST PAIN nystatin 100,000 unit/gram Powder 1 applic TOPICAL TID PRN (Reason: Skin Irritation) Rx Instructions: APPLY DIRECTED TO ABDOMINAL FOLDS cyclobenzaprine 10 mg Tablet 10 mg PO BID PRN (Reason: Muscle Spasm) ipratropium-albuterol 0.5 mg-3 mg(2.5 mg base)/3 mL Solution For Nebulization 3 ml INHALATION Q6H PRN (Reason: Shortness Of Breath Or Wheezing) docusate sodium 100 mg Capsule 100 mg PO BID duloxetine 60 mg capsule,delayed release(DR/EC) 60 mg PO DAILY famotidine 20 mg tablet 20 mg PO DAILY fluticasone propionate 50 mcg/actuation spray,suspension 2 spray Intranasal DAILY aspirin [Ecotrin Low Strength] 81 mg tablet,delayed release (DR/EC) 81 mg PO QAM finasteride 5 mg tablet 5 mg PO QAM metoprolol succinate 50 mg Tablet Extended Release 24 Hr 75 mg PO BID spironolactone 25 mg Tablet 25 mg PO QAM atorvastatin 80 mg tablet 80 mg PO QPM Rx Instructions: TAKE THIS MEDICATION EVERY AFTERNOON sennosides [senna] 8.6 mg Tablet 8.6 mg PO DAILY PRN (Reason: Constipation) folic acid 1 mg Tablet 1 mg PO QAM furosemide [Lasix] 40 mg tablet 40 mg PO BID albuterol sulfate 90 mcg/actuation Hfa Aerosol Inhaler 2 puff INHALATION Q4 PRN (Reason: Dyspnea) omeprazole 20 mg Capsule,Delayed Release(Dr/Ec) 20 mg PO DAILYBB gabapentin 800 mg tablet 800 mg PO TID buprenorphine HCl 8 mg tablet, sublingual 8 mg SUBLINGUAL TID Rx Instructions: Per Dr 1st glipizide 10 mg tablet 10 mg PO BID urea [Ureacin-20] 20 % Cream 1 applic TOPICAL BID magnesium oxide 400 mg (241.3 mg magnesium) tablet 400 mg PO DAILY ferrous sulfate 325 mg (65 mg iron) Tablet 325 mg PO QAM Rx Instructions: Take with breakfast hydroxyzine HCl 25 mg Tablet 25 mg PO QID PRN (Reason: Anxiety) ondansetron HCl 4 mg Tablet 4 mg PO Q8H PRN (Reason: NAUSEA/VOMITING) benzonatate 100 mg Capsule 100 mg PO TID PRN (Reason: cough) Qty: 10 0RF metolazone 2.5 mg tablet 2.5 mg PO UD Qty: 12 1RF Rx Instructions: take 1 tab 3x a week (wed/wed/wed) Lactinex 1 million cell tablet,chewable 1 tab PO TID Qty: 30 0RF isosorbide dinitrate 30 mg tablet 30 mg PO DAILY phenazopyridine [Pyridium] 200 mg tablet 200 mg PO Q8H PRN (Reason: pain) Qty: 15 0RF warfarin 5 mg tablet 2.5 - 5 mg PO UD Rx Instructions: take 5 mg in the evening every wednesday and take 2.5 mg every other evening of the week guaifenesin [Mucinex] 600 mg Tablet Extended Release 12hr 1,200 mg PO BID potassium chloride 20 mEq tablet extended release 20 meq PO BID lorazepam 0.5 mg tablet 0.5 mg PO Q8 PRN (Reason: Anxiety) Qty: 6 0RF insulin aspart U-100 [Novolog Flexpen U-100 Insulin] 100 unit/mL (3 mL) Insulin Pen 1 unit SUBCUT TIDM Qty: 30 0RF Rx Instructions: inject 1 unit uner the skin three times a day with meals. units as per s liding scale as instructed by provider to cover for steroid coverage when warranted insulin glargine [Lantus Solostar U-100 Insulin] 100 unit/mL (3 mL) Insulin Pen 50 unit SC HS 30 Days Qty: 15 0RF Stiolto Respimat 2.5-2.5 mcg/actuation mist 2 puff inhalation DAILY Qty: 4 0RF Referrals Referrals: oRberto Askew MD [Primary Care Provider] -
[2022-09-19] MEDS ORDERED: ALBUT/IPRATROP 3MG/0.5MG NEB 3 ML VIAL INH STA (13:28)
[2022-09-19] MEDS ORDERED: methylPREDNISolone 125 MG/2 ML VIAL IV STA (13:28)
[2022-09-19] MEDS ORDERED: MAGNESIUM SULFATE / D5W 1 GM/100 ML BAG IV ONE (13:29)
[2022-09-19 13:40] LABS: Basophils # (auto) 0.06 K/uL (0-0.2); Basophils % (auto) 0.3 %; Eosinophils # (auto) 0.36 K/uL (0-0.50); Hemoglobin 14.1 g/dl (14.0-18.0); Immature Granulocytes # (auto) 0.11 K/uL (0.00-0.02); Immature Granulocytes % (auto) 0.6 %; Lymphocytes # (auto) 2.12 K/uL (1.2-3.4); Lymphocytes % (auto) 11.7 %; Mean Corpuscular Hemoglobin 27.4 pg (25.0-34.0); Mean Corpuscular Volume 85.6 fL (80.0-100.0); Mean Platelet Volume 10.6 fL (9.4-12.4); Monocytes # (auto) 1.23 K/uL (0.24-0.82); Monocytes % (auto) 6.8 %; Neutrophils # (auto) 14.28 K/uL (1.4-6.5); Neutrophils % (auto) 78.6 %; Platelet Count 230 K/uL (130-400); RDW Coefficient of Variation 17.8 % (11.5-14.5); RDW Standard Deviation 53.8 fL (36.4-46.3); Red Blood Count 5.14 M/uL (4.63-6.08); White Blood Count 18.16 K/ul (4.8-10.8)
[2022-09-19 14:14] LABS: Albumin Level 3.5 gm/dl (3.4-5.0); BUN Creatinine Ratio 11.1 (10-20); Bilirubin,Total 1.1 mg/dl (0.2-1.0); Calcium 9.7 mg/dl (8.5-10.1); Creatinine Clr Calc Pharmacy 208.9 ml/min; Est GFR (African American) 124.3 ml/min; Est GFR (Non-African American) 107.3 ml/min; Globulin 3.5 gm/dl (2.5-4.0); Magnesium 1.6 mg/dl (1.7-2.4); Phosphorus 2.3 mg/dl (2.5-4.9); Potassium 3.2 mmol/L (3.5-5.1); Troponin I High Sensitivity 9.4 pg/ml (0-20)
[2022-09-19 14:27] LABS: INR 1.6 (0.9-1.1); Partial Thromboplastin Ratio 1.1; Partial Thromboplastin Time 30.5 Seconds (21.0-31.0); Prothrombin Time 16.5 Seconds (9.0-12.0)
--- NOTE | 2022-09-19 14:37 | XRay Report ---
XR chest 1V portable CLINICAL HISTORY: Dyspnea COMPARISON STUDY: Chest radiograph August 21, 2022. FINDINGS: Cardiomegaly is unchanged. There is no pneumothorax or pleural effusion. Pulmonary vascular congestion is unchanged. Mild left basilar opacity favors atelectasis or epicardial fat pad. There i s no consolidation to suggest pneumonia. IMPRESSION: No change in appearance of the chest. Cardiomegaly with pulmonary vascular congestion. ACT 112: Negative or not required by law. Electronically signed by: Evelio Corbin M.D. 09/19/2022 2:36 PM
--- NOTE | 2022-09-19 14:58 | Electrocardiogram Report ---
Test Reason : Blood Pressure : / mmHG Vent. Rate : 091 BPM Atrial Rate : 091 BPM P-R Int : 158 ms QRS Dur : 108 ms QT Int : 358 ms P-R-T Axes : 009 051 115 degrees QTc Int : 440 ms Poor data quality, interpretation may be adversely affected Normal sinus rhythm Abnormal ECG When compared with ECG of 18-AUG-2022 10:13, T wave inversion now evident in Inferior leads T wave inversion now evident in Anterolateral leads Confirmed by Stanton Porter ([id number]) on 09/19/2022 2:58:19 PM Referred By: REFERRED SELF Confirmed By:Stanton Porter
[2022-09-19 15:16] LABS: Influenza A virus by PCR Negative (Neg); Influenza B virus by PCR Negative (Neg); RSV by PCR Negative (Neg); SARS CoV2 RNA(COVID-19) Ceph NEGATIVE (Negative)
[2022-09-19] MEDS ORDERED: POTASSIUM CHLORIDE CRTAB 20 MEQ TABCR PO STA (15:24)
[2022-09-19] MEDS ORDERED: POT PHOSPHATE MONOBASIC W/ SOD TAB PO STA (15:24)
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
[2022-09-19 17:36] LABS: Appearance Urine Clear (Clear); Bacteria Urine Automated Negative (Negative); Bilirubin Urine Negative (Negative); Blood Urine 2+ (Negative); Color Urine Yellow; Epithelial Cell Urine Auto 20-30 /lpf (0-5); Glucose Urine UA Negative (Negative); Ketones Urine Negative (Negative); Leukocyte Esterase Urine 2+ (Negative); Nitrite Urine Negative (Negative); Protein Urine Negative (Negative); RBC Urine Automated 0-4 /hpf (0-4); Specific Gravity Urine 1.006 (1.000-1.030); Urobilinogen Urine Negative (Negative)
[2022-09-19] MEDS ORDERED: NICOTINE 21 MG/24 HR TDSY TD SCH (17:45)
[2022-09-19 18:16] LABS: Adenovirus PCR Not Detected (NotDetected); Bordetella parapertussis PCR Not Detected (NotDetected); Bordetella pertussis PCR Not Detected (NotDetected); Chlamydia pneumoniae PCR Not Detected (NotDetected); Coronavirus 229E PCR Not Detected (NotDetected); Coronavirus CoV-2 (COVID19)PCR Not Detected (NotDetected); Coronavirus HKU1 PCR Not Detected (NotDetected); Coronavirus NL63 PCR Not Detected (NotDetected); Coronavirus OC43PCR Not Detected (NotDetected); Human Metapneumovirus PCR Not Detected (NotDetected); Influenza A PCR Not Detected (NotDetected); Influenza B PCR Not Detected (NotDetected); Mycoplasma pneumoniae PCR Not Detected (NotDetected); Parainfluenza Virus 1 PCR Not Detected (NotDetected); Parainfluenza Virus 2 PCR Not Detected (NotDetected); Parainfluenza Virus 3 PCR Not Detected (NotDetected); Parainfluenza Virus 4 PCR Not Detected (NotDetected); Respiratory Syncytial VirusPCR Not Detected (NotDetected); Rhinovirus/Enterovirus PCR Not Detected (NotDetected)
[2022-09-19] MEDS ORDERED: NYSTATIN POWDER 15GM BTL EXT PRN (19:24)
[2022-09-19] MEDS ORDERED: hydrOXYzine HCl 25 MG TAB PO PRN (19:24)
[2022-09-19] MEDS ORDERED: CARBOHYDRATES FOR HYPOGLYCEMIA PO PRN (19:24)
[2022-09-19] MEDS ORDERED: ONDANSETRON INJ 2 MG/ML 2 ML VIAL IV PRN (19:24)
[2022-09-19] MEDS ORDERED: DEXTROSE 50% 50 ML SYRINGE IV PRN (19:24)
[2022-09-19] MEDS ORDERED: PHENAZOPYRIDINE HCL 200 MG TAB PO PRN (19:24)
[2022-09-19] MEDS ORDERED: POLYETHYLENE (MIRALAX) 17 GM PACK PO PRN (19:24)
[2022-09-19] MEDS ORDERED: PHARMACY GLYCEMIC MGMT CONSULT PRN (19:24)
[2022-09-19] MEDS ORDERED: ALBUTEROL HFA 8 GM INHALER INH PRN (19:24)
[2022-09-19] MEDS ORDERED: GLUCOSE 10 TAB/TUBE PO PRN (19:24)
[2022-09-19] MEDS ORDERED: GLUCAGON FOR INJ 1 MG VIAL SQ PRN (19:24)
[2022-09-19] MEDS ORDERED: ACETAMINOPHEN 325 MG TAB PO PRN (19:24)
[2022-09-19] MEDS ORDERED: GLUCOSE 40% GEL 15 GM TUBE PO PRN (19:24)
[2022-09-19] MEDS: NICOTINE 21 MG/24 HR TDSY TD SCH (20:00)
[2022-09-19] MEDS: ALBUT/IPRATROP 3MG/0.5MG NEB 3 ML VIAL NEB SCH (20:30)
[2022-09-19] MEDS ORDERED: LANTUS PER UNIT CHARGE SQ SCH (21:00)
[2022-09-19] MEDS ORDERED: POT PHOSPHATE MONOBASIC W/ SOD TAB PO SCH (21:00)
[2022-09-19] MEDS ORDERED: methylPREDNISolone 40 MG in DEXTROSE 5% 250 ML IV SCH (21:15)
[2022-09-19] MEDS: FUROSEMIDE 40 MG/4 ML VIAL IV SCH (21:52)
[2022-09-19] MEDS: INSULIN ASPART PER UNIT SC SCH (21:53)
[2022-09-19] MEDS: GABAPENTIN 800 MG TAB PO SCH (21:55)
[2022-09-19] MEDS: guaiFENesin 600 MG TABCR PO SCH (21:55)
[2022-09-19] MEDS: DOCUSATE SODIUM 100 MG CAP PO SCH (21:55)
[2022-09-19] MEDS: DOXYCYCLINE HYCLATE 100 MG CAP PO SCH (21:55)
[2022-09-19] MEDS: METOPROLOL SUCC 25MG EXT REL TAB PO SCH (21:55)
[2022-09-19] MEDS: ATORVASTATIN 40 MG TAB PO SCH (21:55)
[2022-09-19] MEDS: LORazepam 0.5 MG TAB PO PRN (21:55)
[2022-09-19] MEDS: BENZONATATE 100 MG CAPSULE PO PRN (21:58)
[2022-09-19] MEDS: buprenorphine HCL 8 MG SUBL SL SCH (21:58)
[2022-09-19] MEDS ORDERED: WARFARIN SOD 7.5 MG TAB PO ONE (22:00)
[2022-09-19] MEDS: POTASSIUM CHLORIDE CRTAB 20 MEQ TABCR PO SCH (22:02)
[2022-09-19] MEDS ORDERED: ACETAMINOPHEN 1,000 MG/100 ML VIAL IV STA (23:21)
[2022-09-20 06:26] LABS: Hematocrit (blood only) 40.9 % (40.1-51.0); Hemoglobin 13.6 g/dl (14.0-18.0); Mean Corpuscular Hemoglobin 27.6 pg (25.0-34.0); Mean Corpuscular Hgb Conc 33.3 g/dL (32.0-36.0); Mean Corpuscular Volume 83.1 fL (80.0-100.0); Mean Platelet Volume 10.5 fL (9.4-12.4); Platelet Count 210 K/uL (130-400); RDW Coefficient of Variation 16.9 % (11.5-14.5); RDW Standard Deviation 51.1 fL (36.4-46.3); Red Blood Count 4.92 M/uL (4.63-6.08); White Blood Count 16.22 K/ul (4.8-10.8)
[2022-09-20] MEDS: methylPREDNISolone 40 MG in SYRINGE 0 ML IV SCH ×3 (06:28→20:12)
[2022-09-20] MEDS: PANTOprazole 40 MG TAB PO SCH (06:28)
[2022-09-20 07:07] LABS: INR 1.6 (0.9-1.1); Prothrombin Time 16.3 Seconds (9.0-12.0)
[2022-09-20 07:25] LABS: BUN Creatinine Ratio 19.8 (10-20); Calcium 9.4 mg/dl (8.5-10.1); Creatinine Clr Calc Pharmacy 177.2 ml/min; Est GFR (African American) 115.6 ml/min; Est GFR (Non-African American) 99.7 ml/min; Magnesium 1.7 mg/dl (1.7-2.4); Phosphorus 1.8 mg/dl (2.5-4.9); Potassium 3.4 mmol/L (3.5-5.1)
[2022-09-20] MEDS: ALBUT/IPRATROP 3MG/0.5MG NEB 3 ML VIAL NEB SCH ×4 (07:34→19:34)
[2022-09-20] MEDS ORDERED: LANTUS PER UNIT CHARGE SQ ONE (08:00)
[2022-09-20] MEDS ORDERED: POTASSIUM PHOS 3 MMOL/1 ML INFUSION IV ONE (08:46)
[2022-09-20] MEDS ORDERED: POTASSIUM CHLORIDE CRTAB 20 MEQ TABCR PO ONE (08:49)
[2022-09-20] MEDS ORDERED: NON-FORMULARY MEDICATION (Tiotropium-Olodaterol [Stiolto Respimat] 2.5-2.5 mcg/actuation m INH SCH (09:00)
[2022-09-20] MEDS ORDERED: POTASSIUM PHOSPHATE 21 MMOL in SODIUM CHLORIDE 0.9% 500 ML IV ONE (09:00)
[2022-09-20] MEDS: INSULIN ASPART PER UNIT SC SCH ×4 (09:02→20:39)
[2022-09-20] MEDS: FERROUS SULFATE 325 MG TAB PO SCH (09:03)
[2022-09-20] MEDS: POTASSIUM CHLORIDE CRTAB 20 MEQ TABCR PO SCH ×2 (09:53→20:10)
[2022-09-20] MEDS: buprenorphine HCL 8 MG SUBL SL SCH ×3 (09:53→19:56)
[2022-09-20] MEDS: LORazepam 0.5 MG TAB PO PRN ×2 (09:54→20:51)
[2022-09-20] MEDS: CYCLOBENZAPRINE HCL 10 MG TAB PO PRN (09:54)
[2022-09-20] MEDS: TAMSULOSIN HCL 0.4 MG CAP PO SCH (09:56)
[2022-09-20] MEDS: SPIRONOLACTONE 25 MG TAB PO SCH (09:56)
[2022-09-20] MEDS: ADVANCED PROBIOTIC 1250 MG CAPSULE PO SCH (09:56)
[2022-09-20] MEDS: ISOSORBIDE DINITRATE 10 MG TAB PO SCH (09:56)
[2022-09-20] MEDS: SENNA 8.6 MG TAB PO PRN (09:56)
[2022-09-20] MEDS: UMECLIDINIUM/VILANTEROL 62.5/25MCG 7 PUFFS/INHALER INH SCH (09:57)
[2022-09-20] MEDS: GABAPENTIN 800 MG TAB PO SCH ×3 (09:58→20:53)
[2022-09-20] MEDS: guaiFENesin 600 MG TABCR PO SCH ×2 (09:59→20:08)
[2022-09-20] MEDS: DOCUSATE SODIUM 100 MG CAP PO SCH ×2 (09:59→20:06)
[2022-09-20] MEDS: METOPROLOL SUCC 25MG EXT REL TAB PO SCH ×2 (09:59→20:09)
[2022-09-20] MEDS: MAGNESIUM OXIDE 400 MG TAB PO SCH (09:59)
[2022-09-20] MEDS: DULoxetine HCL 60 MG CAP PO SCH (09:59)
[2022-09-20] MEDS: FINASTERIDE 5 MG TAB PO SCH (10:00)
[2022-09-20] MEDS: ASPIRIN 81 MG ECTAB PO SCH (10:00)
[2022-09-20] MEDS: FOLIC ACID 1 MG TAB PO SCH (10:00)
[2022-09-20] MEDS: DOXYCYCLINE HYCLATE 100 MG CAP PO SCH ×2 (10:01→20:53)
[2022-09-20] MEDS: FUROSEMIDE 40 MG/4 ML VIAL IV SCH ×2 (10:01→20:50)
[2022-09-20] MEDS: FAMOTIDINE 20 MG TAB PO SCH (10:01)
[2022-09-20] MEDS: NICOTINE 21 MG/24 HR TDSY TD SCH (10:02)
[2022-09-20] MEDS: FLUTICASONE PROPIONATE NA SPR 16 GM BTL NAE SCH (10:02)
[2022-09-20] MEDS: BENZONATATE 100 MG CAPSULE PO PRN (10:33)
[2022-09-20] MEDS: ACETAMINOPHEN 1,000 MG/100 ML VIAL IV PRN ×2 (10:34→19:55)
--- NOTE | 2022-09-20 14:52 | Pharmacy Report ---
Pharmacy Glycemic Short Note 2 - Date of Service September 20, 2022 - Glycemic Short BSG Results (Last 24 hours): 09/19/22 09/19/22 09/20/22 20:31 20:32 06:16 Glucose 342 H* POC Glucose 350 H* 356 H* 09/20/22 09/20/22 09/20/22 07:16 07:17 11:30 Glucose POC Glucose 360 H* 350 H* 267 H OUTPATIENT ANTIDIABETIC REGIMEN: * Lantus 50 units HS, novolog, glipizide ASSESSMENT: * Patient admitted with possible bronchitis - started on solumedrol 40 mg iv q 8 hr. Patient is type 2 diabetic, pharmacy consulted for glycemic management * Patient previously admitted 08/19. At that time he was on solumedrol 40 mg iv bid and was requiring >300 units of insulin. Basal insulin was about ~100 -130 units daily and BSGs still in 200s * BSG this AM was 350 mg/dL - Will give an additional 70 units of basal insulin x 1 this morning (had gotten only 25 units basal last night). Will have scale for basal for HS time 40-60 units PLAN FOR INPATIENT GLYCEMIC CONTROL: * Hold outpatient oral diabetes medications * Basal insulin * Lantus 70 units x 1 * Lantus 40-60 units HS * Bolus insulin * NovoLog per scale ACHS or Q6hrs while NPO * Goal Range: Low 110 mg/dL - High 140 mg/dL * Correction Factor: 5 mg/dL/unit * Nutritional / Prandial insulin per carb ratio of 1 unit per 3 grams CHO consumed
--- NOTE | 2022-09-20 14:55 | Hospitalist Progress Note ---
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 Acute on chronic respiratory failure with Hypoxia Acute COPD exacerbation H/O DARIA, COPD, Asthma Ongoing tobacco use disorder Recently completed course of Macrobid and steroid taper in outpatient setting -CXR:No change in appearance of the chest. Cardiomegaly with pulmonary vascular congestion. -Respiratory panel:Negative -Procalcitonin 0.24 Continue IV Solu-Medrol, nebs Continue supplemental oxygen to keep saturations 88 to 92% Continue pulmonary hygiene Also started on doxycycline Needs outpatient sleep study Counseled to quit smoking Nicotine patch Acute on chronic diastolic CHF CXR as above Last ECHO:08/16: EF of 55 to 60%, mild concentric LVH, RV is mildly dilated, RV systolic function is normal and poorly visualized valvular anatomy without significant stenosis or regurgitation Hold PO diuretics Continue IV Lasix 40mg BID Daily weight, I/Os Oxygen support PRN Monitor renal function/electrolytes, volume status Resume p.o. diuretics as able Hypokalemia Hypophosphatemia Hypomagnesemia Replete electrolytes as needed Chronic indwelling Lloyd Catheter Urine culture negative Changed Lloyd catheter Constipation: continue bowel regimen H/O Pulmonary embolism Subtherapeutic INR INR 1.6 Continue warfarin SQ Heparin until INR is therapeutic DM II Last Hb A1C:8.8 Hold home agents Basal/bolus insulin per protocol BSG AC HS Chronic pain syndrome Right foot pain On Suboxone DVT Px: Coumadin SQ Heparin Code status: FULL CODE Admission and Anticipated Discharge Date Admission Date: September 19, 2022 Subjective Patient is seen and examined at bedside States having known expectorant cough Also reports some dyspnea with minimal exertion. Has chronic back pain Repeat chest x-ray from today pending Review of Systems Review of Systems: All systems reviewed & are unremarkable except as noted in Subjective Physical Exam Physical Exam: Physical Exam: Vitals signs as noted above General Appearance:Morbidly Obese, no apparent distress Head: normocephalic, Atraumatic Eyes: normal inspection, EOMI Neck: supple, Trachea midline Respiratory/Chest: Decrease breath sounds, B/L expiratory wheezing, No accessory muscle use Cardiovascular: S1, S2, No murmur Abdomen/GI:Soft, Non tender, Bowel sounds present Extremities/Musculoskeletal:normal inspection, chronic venous stasis changes, nonpitting trace edema Neurologic/Psych:AAOX3, grossly no focal neurological deficits Skin: normal color, warm Results & Data Results & Data ([facility]) Vital Signs (Past 12 Hours) Vital Signs Temp Pulse Resp BP BP Pulse Ox O2 Del Method 09/20/22 08:44 Nasal Cannula 09/20/22 08:00 Nasal Cannula 09/20/22 12:07 36.3 C L 87 18 112/64 91 Nasal Cannula 09/20/22 10:40 60 22 91 Nasal Cannula 09/20/22 07:38 36.3 C L 75 16 142/89 H 93 Nasal Cannula 09/20/22 07:35 82 18 93 Nasal Cannula 09/20/22 03:57 36.3 C L 76 20 118/74 90 Nasal Cannula O2 Flow Rate 09/20/22 08:44 6 09/20/22 08:00 6 09/20/22 12:07 6 09/20/22 10:40 6 09/20/22 07:38 6 09/20/22 07:35 6 09/20/22 03:57 6.0 Laboratory Results Short CBC 09/20/22 Range/Units 06:16 WBC 16.22 H (4.8-10.8) K/ul Hgb 13.6 L (14.0-18.0) g/dl Hct 40.9 (40.1-51.0) % Plt Count 210 (130-400) K/uL BMP 09/20/22 06:16 Sodium 134 L Potassium 3.4 L Chloride 91 L Carbon Dioxide 36 H BUN 17 Creatinine 0.86 Glucose 342 H* Calcium 9.4 Urine 09/19/22 Range/Units 17:16 Urine Color Yellow Urine Appearance Clear (Clear) Urine pH 6.0 (4.5-7.5) Ur Specific [place] 1.006 (1.000-1.030) Urine Protein Negative (Negative) Urine Glucose (UA) Negative (Negative)
--- NOTE | 2022-09-20 15:37 | XRay Report ---
XR chest 1V portable HISTORY: Dyspnea COMPARISON: Chest 09/19/2022. FINDINGS: No pneumothorax. The heart remains mildly enlarged. There has been interval progression of the mild pulmonary edema. Trace bilateral pleural effusions are noted. Bibasilar linear densities fav or subsegmental atelectasis. Old, healed left-sided clavicle fracture. IMPRESSION: Interval progression of the pulmonary edema and trace bilateral pleural effusions. ACT 112: Negative or not required by law. Electronically signed by: Vidal Keller M.D. 09/20/2022 3:36 PM
[2022-09-20] MEDS ORDERED: FUROSEMIDE 40 MG/4 ML VIAL IV ONE (15:46)
[2022-09-20] MEDS: WARFARIN SOD 7.5 MG TAB PO SCH (16:17)
[2022-09-20] MEDS ORDERED: SODIUM CHLORIDE 0.65% NA SOLN 45 ML (OCEAN) ONE (19:27)
[2022-09-20] MEDS ORDERED: COUGH DROP (SUGAR FREE) LOZ 24 LOZ/1 BOX BUCCAL ONE (19:32)
[2022-09-20] MEDS: ATORVASTATIN 40 MG TAB PO SCH (20:50)
[2022-09-20] MEDS: HEPARIN SOD 5,000 UNIT/0.5 ML VIAL SQ SCH (20:51)
[2022-09-20] MEDS ORDERED: LANTUS PER UNIT CHARGE SQ SCH (21:00)
[2022-09-21] MEDS: INSULIN ASPART PER UNIT SC SCH ×6 (00:42→21:04)
[2022-09-21] MEDS: PANTOprazole 40 MG TAB PO SCH (05:29)
[2022-09-21] MEDS: HEPARIN SOD 5,000 UNIT/0.5 ML VIAL SQ SCH (05:29)
[2022-09-21] MEDS: methylPREDNISolone 40 MG in SYRINGE 0 ML IV SCH ×2 (05:29→21:13)
[2022-09-21] MEDS: ALBUT/IPRATROP 3MG/0.5MG NEB 3 ML VIAL NEB SCH ×4 (07:10→19:07)
[2022-09-21 07:17] LABS: Hematocrit (blood only) 42.2 % (40.1-51.0); Mean Corpuscular Hemoglobin 27.6 pg (25.0-34.0); Mean Corpuscular Hgb Conc 33.2 g/dL (32.0-36.0); Mean Corpuscular Volume 83.2 fL (80.0-100.0); Mean Platelet Volume 10.9 fL (9.4-12.4); Platelet Count 260 K/uL (130-400); RDW Coefficient of Variation 17.2 % (11.5-14.5); RDW Standard Deviation 51.7 fL (36.4-46.3); Red Blood Count 5.07 M/uL (4.63-6.08); White Blood Count 21.64 K/ul (4.8-10.8)
[2022-09-21 07:27] LABS: INR 3.4 (0.9-1.1); Prothrombin Time 33.5 Seconds (9.0-12.0)
[2022-09-21 08:15] LABS: BUN Creatinine Ratio 24.7 (10-20); Calcium 9.6 mg/dl (8.5-10.1); Creatinine Clr Calc Pharmacy 180.3 ml/min; Est GFR (African American) 116.1 ml/min; Est GFR (Non-African American) 100.2 ml/min; Magnesium 1.7 mg/dl (1.7-2.4); Phosphorus 2.8 mg/dl (2.5-4.9); Potassium 3.6 mmol/L (3.5-5.1)
[2022-09-21] MEDS: FUROSEMIDE 40 MG/4 ML VIAL IV SCH ×2 (08:42→21:21)
[2022-09-21] MEDS: SPIRONOLACTONE 25 MG TAB PO SCH (08:43)
[2022-09-21] MEDS: CYCLOBENZAPRINE HCL 10 MG TAB PO PRN ×2 (08:43→21:20)
[2022-09-21] MEDS: METOPROLOL SUCC 25MG EXT REL TAB PO SCH ×2 (08:43→21:12)
[2022-09-21] MEDS: guaiFENesin 600 MG TABCR PO SCH ×2 (08:43→21:10)
[2022-09-21] MEDS: BENZONATATE 100 MG CAPSULE PO PRN ×2 (08:43→16:11)
[2022-09-21] MEDS: POTASSIUM CHLORIDE CRTAB 20 MEQ TABCR PO SCH ×2 (08:43→21:16)
[2022-09-21] MEDS: ADVANCED PROBIOTIC 1250 MG CAPSULE PO SCH (08:44)
[2022-09-21] MEDS: TAMSULOSIN HCL 0.4 MG CAP PO SCH (08:44)
[2022-09-21] MEDS: MAGNESIUM OXIDE 400 MG TAB PO SCH (08:44)
[2022-09-21] MEDS: DOXYCYCLINE HYCLATE 100 MG CAP PO SCH ×2 (08:45→21:14)
[2022-09-21] MEDS: ISOSORBIDE DINITRATE 10 MG TAB PO SCH (08:45)
[2022-09-21] MEDS: DULoxetine HCL 60 MG CAP PO SCH (08:45)
[2022-09-21] MEDS: GABAPENTIN 800 MG TAB PO SCH ×3 (08:45→21:15)
[2022-09-21] MEDS: DOCUSATE SODIUM 100 MG CAP PO SCH ×2 (08:45→22:47)
[2022-09-21] MEDS: ASPIRIN 81 MG ECTAB PO SCH (08:46)
[2022-09-21] MEDS: FERROUS SULFATE 325 MG TAB PO SCH (08:46)
[2022-09-21] MEDS: UMECLIDINIUM/VILANTEROL 62.5/25MCG 7 PUFFS/INHALER INH SCH (08:46)
[2022-09-21] MEDS: NICOTINE 21 MG/24 HR TDSY TD SCH (08:46)
[2022-09-21] MEDS: buprenorphine HCL 8 MG SUBL SL SCH ×3 (08:46→21:20)
[2022-09-21] MEDS: FLUTICASONE PROPIONATE NA SPR 16 GM BTL NAE SCH (08:47)
[2022-09-21] MEDS: ACETAMINOPHEN 1,000 MG/100 ML VIAL IV PRN ×2 (08:47→17:34)
[2022-09-21] MEDS: FOLIC ACID 1 MG TAB PO SCH (08:50)
[2022-09-21] MEDS: LORazepam 0.5 MG TAB PO PRN ×2 (08:50→17:31)
[2022-09-21] MEDS: FAMOTIDINE 20 MG TAB PO SCH (08:50)
[2022-09-21] MEDS: FINASTERIDE 5 MG TAB PO SCH (08:54)
[2022-09-21] MEDS ORDERED: LANTUS PER UNIT CHARGE SQ SCH ×2 (09:00→21:00)
--- NOTE | 2022-09-21 13:08 | Pharmacy Report ---
Pharmacy Glycemic Short Note 2 - Date of Service September 21, 2022 - Glycemic Short BSG Results (Last 24 hours): 09/20/22 09/20/22 09/21/22 16:24 20:25 00:25 Glucose POC Glucose 206 H 344 H* 202 H 09/21/22 09/21/22 09/21/22 05:17 06:18 07:37 Glucose 153 H POC Glucose 157 H 174 H 09/21/22 09/21/22 09/21/22 12:02 12:04 12:06 Glucose POC Glucose 572 H* 366 H* 343 H* OUTPATIENT ANTIDIABETIC REGIMEN: * Lantus 50 units HS, novolog, glipizide ASSESSMENT: * Patient received 329 units of insulin yesterday- 130 units of basal, 199 units of bolus novolog (correctional + prandial) * Fasting BSG was down to 174 mg/dL with additional overnight checks. Will continue lantus scale, solumedrol was titrated down to q12H from q8H * Lunch BSG elevated, will tighten carb ratio slightly- watch for need to loosen as solumedrol titrated 09/20 * Patient admitted with possible bronchitis - started on solumedrol 40 mg iv q 8 hr. Patient is type 2 diabetic, pharmacy consulted for glycemic management * Patient previously admitted 08/19. At that time he was on solumedrol 40 mg iv bid and was requiring >300 units of insulin. Basal insulin was about ~100 -130 units daily and BSGs still in 200s * BSG this AM was 350 mg/dL - Will give an additional 70 units of basal insulin x 1 this morning (had gotten only 25 units basal last night). Will have scale for basal for HS time 40-60 units PLAN FOR INPATIENT GLYCEMIC CONTROL: * Hold outpatient oral diabetes medications * Basal insulin * Lantus 40-70 units BID * Bolus insulin * NovoLog per scale ACHS or Q6hrs while NPO * Goal Range: Low 110 mg/dL - High 140 mg/dL * Correction Factor: 5 mg/dL/unit * Nutritional / Prandial insulin per carb ratio of 1 unit per 2.5 grams CHO consumed
[2022-09-21] MEDS ORDERED: HEPARIN 100 UNIT/ML 5ML FLUSH ONE (13:10)
--- NOTE | 2022-09-21 15:25 | Hospitalist Progress Note ---
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 Acute on chronic respiratory failure with Hypoxia Acute COPD exacerbation H/O DARIA, COPD, Asthma Ongoing tobacco use disorder Recently completed course of Macrobid and steroid taper in outpatient setting -CXR:No change in appearance of the chest. Cardiomegaly with pulmonary vascular congestion. -Respiratory panel:Negative -Procalcitonin 0.24 Continue IV Solu-Medrol, nebs Continue supplemental oxygen to keep saturations 88 to 92% Continue pulmonary hygiene Continue doxycycline Needs outpatient sleep study Counseled to quit smoking Nicotine patch Continue current management Will repeat chest x-ray tomorrow Acute on chronic diastolic CHF CXR as above Last ECHO:08/16: EF of 55 to 60%, mild concentric LVH, RV is mildly dilated, RV systolic function is normal and poorly visualized valvular anatomy without significant stenosis or regurgitation Hold PO diuretics Continue IV Lasix 40mg BID Daily weight, I/Os Oxygen support PRN Monitor renal function/electrolytes, volume status Continue fluid restriction Will check CXR tomorrow Hypokalemia Hypophosphatemia Hypomagnesemia Replete electrolytes as needed Chronic indwelling Lloyd Catheter Urine culture negative Changed Lloyd catheter Constipation: continue bowel regimen H/O Pulmonary embolism Subtherapeutic INR INR 1.6>3.4 Hold Coumadin today DM II Last Hb A1C:8.8 Hold home agents Basal/bolus insulin per protocol BSG AC HS Chronic pain syndrome Right foot pain On Suboxone DVT Px: Coumadin INR therapeutic Code status: FULL CODE Admission and Anticipated Discharge Date Admission Date: September 19, 2022 Subjective Patient is seen and examined at bedside Less cough, dyspnea today Wheezing improving as well Saturating well on supplemental oxygen Denies any chest pain, dizziness, nausea, abdominal pain Reports chronic back pain which is unchanged No other complaints Review of Systems Review of Systems: All systems reviewed & are unremarkable except as noted in Subjective Physical Exam Physical Exam: Physical Exam: Vitals signs as noted above General Appearance:Morbidly Obese, no apparent distress Head: normocephalic, Atraumatic Eyes: normal inspection, EOMI Neck: supple, Trachea midline Respiratory/Chest: Decrease breath sounds, B/L expiratory wheezing, No accessory muscle use Cardiovascular: S1, S2, No murmur Abdomen/GI:Soft, Non tender, Bowel sounds present Extremities/Musculoskeletal:normal inspection, chronic venous stasis changes, nonpitting trace edema Neurologic/Psych:AAOX3, grossly no focal neurological deficits Skin: normal color, warm Results & Data Results & Data ([facility]) Vital Signs (Past 12 Hours) Vital Signs Temp Pulse Pulse Resp BP Pulse Ox O2 Del Method 09/21/22 15:11 76 18 94 Nasal Cannula 09/21/22 12:17 36.5 C 81 20 125/63 94 Nasal Cannula 09/21/22 11:18 Nasal Cannula 09/21/22 11:16 87 09/21/22 10:53 79 20 Nasal Cannula 09/21/22 07:37 36.4 C L 73 18 123/79 93 Nasal Cannula 09/21/22 07:10 80 18 94 Nasal Cannula 09/21/22 05:29 36.5 C 74 18 136/72 95 Nasal Cannula O2 Flow Rate 09/21/22 15:11 6 09/21/22 12:17 6 09/21/22 11:18 6 09/21/22 11:16 09/21/22 10:53 6 09/21/22 07:37 6 09/21/22 07:10 6 09/21/22 05:29 6 Laboratory Results Short CBC 09/21/22 Range/Units 06:18 WBC 21.64 H (4.8-10.8) K/ul Hgb 14.0 (14.0-18.0) g/dl Hct 42.2 (40.1-51.0) % Plt Count 260 (130-400) K/uL BMP 09/21/22 06:18 Sodium 140 Potassium 3.6 Chloride 94 L Carbon Dioxide 43 H* BUN 21 Creatinine 0.85 Glucose 153 H Calcium 9.6
[2022-09-21] MEDS: DEXTROMETHORPHAN POLYMR COMPLX 30 MG/5 ML UDP PO PRN (17:31)
[2022-09-21] MEDS: ATORVASTATIN 40 MG TAB PO SCH (21:19)
[2022-09-22] MEDS: LORazepam 0.5 MG TAB PO PRN ×3 (02:10→19:45)
[2022-09-22] MEDS: ACETAMINOPHEN 1,000 MG/100 ML VIAL IV PRN ×3 (02:10→19:43)
[2022-09-22] MEDS: INSULIN ASPART PER UNIT SC SCH ×5 (02:18→20:15)
[2022-09-22] MEDS: DEXTROMETHORPHAN POLYMR COMPLX 30 MG/5 ML UDP PO PRN ×3 (03:22→21:50)
[2022-09-22] MEDS: ALBUT/IPRATROP 3MG/0.5MG NEB 3 ML VIAL NEB SCH ×4 (05:32→20:20)
[2022-09-22] MEDS: PANTOprazole 40 MG TAB PO SCH (05:46)
[2022-09-22 07:07] LABS: BUN Creatinine Ratio 30.9 (10-20); Calcium 9.5 mg/dl (8.5-10.1); Creatinine Clr Calc Pharmacy 188.7 ml/min; Est GFR (African American) 118.4 ml/min; Est GFR (Non-African American) 102.2 ml/min; Magnesium 1.7 mg/dl (1.7-2.4); Phosphorus 2.8 mg/dl (2.5-4.9); Potassium 3.9 mmol/L (3.5-5.1)
[2022-09-22 07:16] LABS: INR 4.3 (0.9-1.1); Prothrombin Time 42.4 Seconds (9.0-12.0)
[2022-09-22] MEDS: FUROSEMIDE 40 MG/4 ML VIAL IV SCH ×2 (08:17→19:43)
[2022-09-22] MEDS: DOCUSATE SODIUM 100 MG CAP PO SCH ×2 (08:17→19:41)
[2022-09-22] MEDS: guaiFENesin 600 MG TABCR PO SCH ×2 (08:18→19:40)
[2022-09-22] MEDS: GABAPENTIN 800 MG TAB PO SCH ×3 (08:18→19:42)
[2022-09-22] MEDS: methylPREDNISolone 40 MG in SYRINGE 0 ML IV SCH ×2 (08:18→19:43)
[2022-09-22] MEDS: METOPROLOL SUCC 25MG EXT REL TAB PO SCH ×2 (08:18→19:41)
[2022-09-22] MEDS: DOXYCYCLINE HYCLATE 100 MG CAP PO SCH ×2 (08:19→19:40)
[2022-09-22] MEDS: POTASSIUM CHLORIDE CRTAB 20 MEQ TABCR PO SCH ×2 (08:19→19:39)
[2022-09-22] MEDS: ASPIRIN 81 MG ECTAB PO SCH (08:19)
[2022-09-22] MEDS: NICOTINE 21 MG/24 HR TDSY TD SCH (08:20)
[2022-09-22] MEDS: SENNA 8.6 MG TAB PO PRN (08:20)
[2022-09-22] MEDS: TAMSULOSIN HCL 0.4 MG CAP PO SCH (08:20)
[2022-09-22] MEDS: FERROUS SULFATE 325 MG TAB PO SCH (08:20)
[2022-09-22] MEDS: MAGNESIUM OXIDE 400 MG TAB PO SCH (08:20)
[2022-09-22] MEDS: ADVANCED PROBIOTIC 1250 MG CAPSULE PO SCH (08:21)
[2022-09-22] MEDS: SPIRONOLACTONE 25 MG TAB PO SCH (08:23)
[2022-09-22] MEDS: DULoxetine HCL 60 MG CAP PO SCH (08:24)
[2022-09-22] MEDS: FLUTICASONE PROPIONATE NA SPR 16 GM BTL NAE SCH (08:24)
[2022-09-22] MEDS: FINASTERIDE 5 MG TAB PO SCH (08:24)
[2022-09-22] MEDS: ISOSORBIDE DINITRATE 10 MG TAB PO SCH (08:24)
[2022-09-22] MEDS: FAMOTIDINE 20 MG TAB PO SCH (08:24)
[2022-09-22] MEDS: UMECLIDINIUM/VILANTEROL 62.5/25MCG 7 PUFFS/INHALER INH SCH (08:25)
[2022-09-22] MEDS: FOLIC ACID 1 MG TAB PO SCH (08:25)
--- NOTE | 2022-09-22 08:36 | XRay Report ---
XR chest 1V portable HISTORY: 52 years-old Male CHF acute shortness of breath COMPARISON: September 20, 2022 TECHNIQUE: AP view of the chest FINDINGS: Cardiac silhouette is enlarged. Pulmonary vascular congestion with interstitial coarsening. No pneumo thorax. Trace pleural effusions with mild bibasilar densities are unchanged. Healed chronic mid left clavicular fracture deformity. Bones appear grossly intact. IMPRESSION: 1. Cardiomegaly with stable mild pulmonary edema. 2. Unchanged trace pleural effusions with bibasilar atelectasis. ACT 112: Negative or not required by law. The above report was generated using voice recognition software. It may contain grammatical, syntax o r spelling errors. Electronically signed by: Shelton Apodaca M.D. 09/22/2022 8:35 AM
[2022-09-22] MEDS: buprenorphine HCL 8 MG SUBL SL SCH ×3 (08:39→19:45)
[2022-09-22] MEDS: BENZONATATE 100 MG CAPSULE PO PRN (08:39)
[2022-09-22] MEDS: CYCLOBENZAPRINE HCL 10 MG TAB PO PRN ×2 (08:39→19:51)
[2022-09-22] MEDS ORDERED: LANTUS PER UNIT CHARGE SQ SCH ×2 (09:00→21:00)
--- NOTE | 2022-09-22 09:00 | Pharmacy Report ---
Pharmacy Glycemic Short Note 2 - Date of Service September 22, 2022 - Glycemic Short BSG Results (Last 24 hours): 09/21/22 09/21/22 09/21/22 12:02 12:04 12:06 Glucose POC Glucose 572 H* 366 H* 343 H* 09/21/22 09/21/22 09/22/22 16:28 20:27 02:05 Glucose POC Glucose 281 H 221 H 127 H 09/22/22 09/22/22 06:06 07:22 Glucose 72 POC Glucose 115 H OUTPATIENT ANTIDIABETIC REGIMEN: * Lantus 50 units SC HS * Novolog SSI * Glipizide 10 mg PO BIDM * HbA1c: 8.8% (08/15/22) ASSESSMENT: 09/22: * Mr. Milner received a total of 331 units of insulin yesterday (130 units basal + 201 units bolus). BSGs were: 698-134-571-221 mg/dL. * Fasting BSG this AM was 115 mg/dL. This is well controlled and shows significant improvement since yesterday. Will back off on basal slightly today. * Postprandial BSGs are uncontrolled. Novolog parameters are very tight at this point. Will tighten carb ratio slightly to try and help control postprandials. 09/21: * Patient received 329 units of insulin yesterday- 130 units of basal, 199 units of bolus novolog (correctional + prandial) * Fasting BSG was down to 174 mg/dL with additional overnight checks. Will continue lantus scale, solumedrol was titrated down to q12H from q8H * Lunch BSG elevated, will tighten carb ratio slightly- watch for need to loosen as solumedrol titrated 09/20: * Patient admitted with possible bronchitis - started on solumedrol 40 mg iv q 8 hr. Patient is type 2 diabetic, pharmacy consulted for glycemic management * Patient previously admitted 08/19. At that time he was on solumedrol 40 mg iv bid and was requiring >300 units of insulin. Basal insulin was about ~100 -130 units daily and BSGs still in 200s * BSG this AM was 350 mg/dL - Will give an additional 70 units of basal insulin x 1 this morning (had gotten only 25 units basal last night). Will have scale for basal for HS time 40-60 units PLAN FOR INPATIENT GLYCEMIC CONTROL: * Hold outpatient oral diabetes medications * Basal insulin * Lantus 60 units SC BID * Bolus insulin * NovoLog per scale ACHS or Q6hrs while NPO * Goal Range: Low 110 mg/dL - High 140 mg/dL * Correction Factor: 5 mg/dL/unit * Nutritional / Prandial insulin per carb ratio of 1 unit per 2 grams CHO consumed
--- NOTE | 2022-09-22 13:49 | Hospitalist Progress Note ---
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 Acute on chronic respiratory failure with Hypoxia Acute COPD exacerbation H/O DARIA, COPD, Asthma Ongoing tobacco use disorder Recently completed course of Macrobid and steroid taper in outpatient setting -CXR:No change in appearance of the chest. Cardiomegaly with pulmonary vascular congestion. -Respiratory panel:Negative -Procalcitonin 0.24 Continue IV Solu-Medrol, nebs Continue supplemental oxygen to keep saturations 88 to 92% Continue pulmonary hygiene Continue doxycycline Needs outpatient sleep study Counseled to quit smoking Nicotine patch CXR today showed stable mild pulmonary edema, trace pleural effusions Slowly improving Titrate down steroids as able Acute on chronic diastolic CHF CXR as above Last ECHO:08/16: EF of 55 to 60%, mild concentric LVH, RV is mildly dilated, RV systolic function is normal and poorly visualized valvular anatomy without significant stenosis or regurgitation Hold PO diuretics Continue IV Lasix 40mg BID Daily weight, I/Os Oxygen support PRN Monitor renal function/electrolytes, volume status Continue fluid restriction Repeat chest x-ray as above Continue current management Hypokalemia Hypophosphatemia Hypomagnesemia Replete electrolytes as needed Chronic indwelling Lloyd Catheter Urine culture negative Changed Lloyd catheter Constipation: continue bowel regimen H/O Pulmonary embolism Subtherapeutic INR INR 1.6>3.4>4.3 Coumadin on hold DM II Last Hb A1C:8.8 Hold home agents Basal/bolus insulin per protocol BSG AC HS Chronic pain syndrome Right foot pain On Suboxone DVT Px: Coumadin held INR supratherapeutic Code status: FULL CODE Disposition PT OT prior to discharge Admission and Anticipated Discharge Date Admission Date: September 19, 2022 Subjective Patient is seen and examined at bedside Reports Dyspnea on minimal Exertion Cough improving Denies any chest pain, dizziness, nausea, abdominal pain Reports chronic back pain which is unchanged CXR today showed stable mild pulmonary edema, trace pleural effusions Review of Systems Review of Systems: All systems reviewed & are unremarkable except as noted in Subjective Physical Exam Physical Exam: Physical Exam: Vitals signs as noted above General Appearance:Morbidly Obese, no apparent distress Head: normocephalic, Atraumatic Eyes: normal inspection, EOMI Neck: supple, Trachea midline Respiratory/Chest: Decrease breath sounds, B/L expiratory wheezing, No accessory muscle use Cardiovascular: S1, S2, No murmur Abdomen/GI:Soft, Non tender, Bowel sounds present Extremities/Musculoskeletal:normal inspection, chronic venous stasis changes, nonpitting trace edema Neurologic/Psych:AAOX3, grossly no focal neurological deficits Skin: normal color, warm Results & Data Results & Data ([facility]) Vital Signs (Past 12 Hours) Vital Signs Temp Pulse Pulse Resp BP Pulse Ox O2 Del Method 09/22/22 11:23 36.8 C 84 20 100/56 L 92 Nasal Cannula 09/22/22 08:00 78 09/22/22 08:00 Nasal Cannula 09/22/22 10:59 91 H 18 92 Nasal Cannula 09/22/22 07:16 36.5 C 78 20 144/76 H 95 Nasal Cannula 09/22/22 05:32 80 18 93 Nasal Cannula 09/22/22 03:39 36.4 C L 70 120/72 96 Nasal Cannula O2 Flow Rate 09/22/22 11:23 6 09/22/22 08:00 09/22/22 08:00 6 09/22/22 10:59 6 09/22/22 07:16 6 09/22/22 05:32 6 09/22/22 03:39 6 Laboratory Results [facility] 09/22/22 06:06 Sodium 141 Potassium 3.9 Chloride 99 Carbon Dioxide 40 H BUN 25 H Creatinine 0.81 Glucose 72 Calcium 9.5
[2022-09-22] MEDS: ATORVASTATIN 40 MG TAB PO SCH (19:41)
[2022-09-23] MEDS: ALBUT/IPRATROP 3MG/0.5MG NEB 3 ML VIAL NEB SCH ×4 (05:06→19:34)
[2022-09-23] MEDS: PANTOprazole 40 MG TAB PO SCH (05:33)
[2022-09-23 07:16] LABS: Basophils # (auto) 0.03 K/uL (0-0.2); Basophils % (auto) 0.2 %; Hematocrit (blood only) 40.2 % (40.1-51.0); Hemoglobin 12.7 g/dl (14.0-18.0); Immature Granulocytes # (auto) 0.22 K/uL (0.00-0.02); Immature Granulocytes % (auto) 1.4 %; Lymphocytes # (auto) 2.87 K/uL (1.2-3.4); Lymphocytes % (auto) 18.7 %; Mean Corpuscular Hgb Conc 31.6 g/dL (32.0-36.0); Mean Corpuscular Volume 85.5 fL (80.0-100.0); Mean Platelet Volume 10.4 fL (9.4-12.4); Monocytes # (auto) 0.91 K/uL (0.24-0.82); Monocytes % (auto) 5.9 %; Neutrophils # (auto) 11.35 K/uL (1.4-6.5); Neutrophils % (auto) 73.8 %; Platelet Count 241 K/uL (130-400); RDW Coefficient of Variation 17.4 % (11.5-14.5); RDW Standard Deviation 54.5 fL (36.4-46.3); White Blood Count 15.38 K/ul (4.8-10.8)
[2022-09-23 07:27] LABS: INR 2.1 (0.9-1.1); Prothrombin Time 21.4 Seconds (9.0-12.0)
[2022-09-23 07:37] LABS: BUN Creatinine Ratio 31.9 (10-20); Calcium 9.4 mg/dl (8.5-10.1); Creatinine Clr Calc Pharmacy 169.4 ml/min; Est GFR (African American) 111.9 ml/min; Est GFR (Non-African American) 96.6 ml/min; Phosphorus 3.4 mg/dl (2.5-4.9); Potassium 4.3 mmol/L (3.5-5.1)
[2022-09-23] MEDS: INSULIN ASPART PER UNIT SC SCH ×4 (09:11→20:38)
[2022-09-23] MEDS: LANTUS PER UNIT CHARGE SQ SCH ×2 (09:12→20:39)
[2022-09-23] MEDS: FERROUS SULFATE 325 MG TAB PO SCH (09:18)
[2022-09-23] MEDS: ASPIRIN 81 MG ECTAB PO SCH (09:18)
[2022-09-23] MEDS: DOCUSATE SODIUM 100 MG CAP PO SCH ×2 (09:18→20:30)
[2022-09-23] MEDS: buprenorphine HCL 8 MG SUBL SL SCH ×3 (09:19→20:37)
[2022-09-23] MEDS: FOLIC ACID 1 MG TAB PO SCH (09:19)
[2022-09-23] MEDS: FINASTERIDE 5 MG TAB PO SCH (09:19)
[2022-09-23] MEDS: DULoxetine HCL 60 MG CAP PO SCH (09:19)
[2022-09-23] MEDS: GABAPENTIN 800 MG TAB PO SCH ×3 (09:19→20:30)
[2022-09-23] MEDS: DOXYCYCLINE HYCLATE 100 MG CAP PO SCH ×2 (09:19→20:29)
[2022-09-23] MEDS: FLUTICASONE PROPIONATE NA SPR 16 GM BTL NAE SCH (09:19)
[2022-09-23] MEDS: FAMOTIDINE 20 MG TAB PO SCH (09:19)
[2022-09-23] MEDS: guaiFENesin 600 MG TABCR PO SCH (09:19)
[2022-09-23] MEDS: POTASSIUM CHLORIDE CRTAB 20 MEQ TABCR PO SCH ×2 (09:20→20:29)
[2022-09-23] MEDS: METOPROLOL SUCC 25MG EXT REL TAB PO SCH ×2 (09:20→20:28)
[2022-09-23] MEDS: FUROSEMIDE 40 MG/4 ML VIAL IV SCH ×2 (09:20→20:29)
[2022-09-23] MEDS: ISOSORBIDE DINITRATE 10 MG TAB PO SCH (09:20)
[2022-09-23] MEDS: ADVANCED PROBIOTIC 1250 MG CAPSULE PO SCH (09:20)
[2022-09-23] MEDS: methylPREDNISolone 40 MG in SYRINGE 0 ML IV SCH ×2 (09:20→20:27)
[2022-09-23] MEDS: MAGNESIUM OXIDE 400 MG TAB PO SCH (09:20)
[2022-09-23] MEDS: SPIRONOLACTONE 25 MG TAB PO SCH (09:21)
[2022-09-23] MEDS: NICOTINE 21 MG/24 HR TDSY TD SCH (09:21)
[2022-09-23] MEDS: UMECLIDINIUM/VILANTEROL 62.5/25MCG 7 PUFFS/INHALER INH SCH (09:22)
[2022-09-23] MEDS: TAMSULOSIN HCL 0.4 MG CAP PO SCH (09:22)
[2022-09-23] MEDS: CYCLOBENZAPRINE HCL 10 MG TAB PO PRN ×2 (09:45→20:37)
[2022-09-23] MEDS: LORazepam 0.5 MG TAB PO PRN ×2 (09:45→20:37)
[2022-09-23] MEDS: DEXTROMETHORPHAN POLYMR COMPLX 30 MG/5 ML UDP PO PRN (10:51)
[2022-09-23] MEDS ORDERED: ACETAMINOPHEN 1,000 MG/100 ML VIAL IV STA (11:18)
[2022-09-23] MEDS: guaiFENesin/DEXTROM SYRUP 100MG/10MG 5ML UDC PO PRN ×2 (13:42→20:27)
--- NOTE | 2022-09-23 13:51 | Hospitalist Progress Note ---
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 Acute on chronic respiratory failure with Hypoxia Acute COPD exacerbation H/O DARIA, COPD, Asthma Ongoing tobacco use disorder Recently completed course of Macrobid and steroid taper in outpatient setting -CXR:No change in appearance of the chest. Cardiomegaly with pulmonary vascular congestion. -Respiratory panel:Negative -Procalcitonin 0.24 Continue IV Solu-Medrol, nebs Continue supplemental oxygen to keep saturations 88 to 92% Continue pulmonary hygiene Continue doxycycline Needs outpatient sleep study Counseled to quit smoking Nicotine patch CXR today showed stable mild pulmonary edema, trace pleural effusions Slowly improving Titrate down steroids as able Acute on chronic diastolic CHF CXR as above Last ECHO:08/16: EF of 55 to 60%, mild concentric LVH, RV is mildly dilated, RV systolic function is normal and poorly visualized valvular anatomy without significant stenosis or regurgitation Hold PO diuretics Continue IV Lasix 40mg BID Daily weight, I/Os Oxygen support PRN Monitor renal function/electrolytes, volume status Continue fluid restriction Repeat chest x-ray as above Continue current management Hypokalemia Hypophosphatemia Hypomagnesemia Replete electrolytes as needed Chronic indwelling Lloyd Catheter Urine culture negative Changed Lloyd catheter Constipation: continue bowel regimen H/O Pulmonary embolism Subtherapeutic INR INR 1.6>3.4>4.3 Resume today. DM II Last Hb A1C:8.8 Hold home agents Basal/bolus insulin per protocol BSG AC HS Chronic pain syndrome Right foot pain On Suboxone DVT Px: Coumadin resumed. Code status: FULL CODE Disposition PT OT pending Admission and Anticipated Discharge Date Admission Date: September 19, 2022 Subjective Patient seen and examined at bedside. He reports continued shortness of breath on minimal exertion. Denies any fever, chest pain palpitation, abdominal pain. Urinary output of 6L. Review of Systems Review of Systems: All systems reviewed & are unremarkable except as noted in Subjective Physical Exam Physical Exam: Physical Exam: Vitals signs as noted above General Appearance:Morbidly Obese, no apparent distress Head: normocephalic, Atraumatic Eyes: normal inspection, EOMI Neck: supple, Trachea midline Respiratory/Chest: Decrease breath sounds at bases, B/L expiratory wheezing, No accessory muscle use Cardiovascular: S1, S2, No murmur Abdomen/GI:Soft, Non tender, Bowel sounds present Extremities/Musculoskeletal:normal inspection, chronic venous stasis changes, nonpitting trace edema Neurologic/Psych:AAOX3, grossly no focal neurological deficits Skin: normal color, warm Results & Data Results & Data ([facility]) Vital Signs (Past 12 Hours) Vital Signs Temp Pulse Pulse Resp BP BP Pulse Ox 09/23/22 09:00 09/23/22 11:30 36.4 C L 74 149/70 H 93 09/23/22 10:44 78 18 98 09/23/22 08:00 36.5 C 71 20 130/59 L 97 09/23/22 07:24 61 09/23/22 05:08 75 18 95 09/23/22 02:52 36.3 C L 74 18 135/67 95 O2 Del Method O2 Flow Rate 09/23/22 09:00 Nasal Cannula 5 09/23/22 11:30 Nasal Cannula 4 09/23/22 10:44 Nasal Cannula 5 09/23/22 08:00 Room Air 09/23/22 07:24 09/23/22 05:08 Nasal Cannula 6 09/23/22 02:52 Nasal Cannula 6 Laboratory Results Laboratory Results WBC 15.38 K/ul (4.8-10.8) H 09/23/22 06:24 RBC 4.70 M/uL (4.63-6.08) 09/23/22 06:24 Hgb 12.7 g/dl (14.0-18.0) L 09/23/22 06:24 Hct 40.2 % (40.1-51.0) 09/23/22 06:24 MCV 85.5 fL (80.0-100.0) 09/23/22 06:24 MCH 27.0 pg (25.0-34.0) 09/23/22 06:24 MCHC 31.6 g/dL (32.0-36.0) L 09/23/22 06:24 RDW Std Deviation 54.5 fL (36.4-46.3) H 09/23/22 06:24 RDW Coeff of Megan 17.4 % (11.5-14.5) H 09/23/22 06:24 Plt Count 241 K/uL (130-400) 09/23/22 06:24 MPV 10.4 fL (9.4-12.4) 09/23/22 06:24 Immature Gran % (Auto) 1.4 % 09/23/22 06:24 Neut % (Auto) 73.8 % 09/23/22 06:24 Lymph % (Auto) 18.7 % 09/23/22 06:24 [place] % (Auto) 5.9 % 09/23/22 06:24 Eos % (Auto) 0.0 % 09/23/22 06:24 Baso % (Auto) 0.2 % 09/23/22 06:24 Neut # (Auto) 11.35 K/uL (1.4-6.5) H 09/23/22 06:24 Lymph # (Auto) 2.87 K/uL (1.2-3.4) 09/23/22 06:24 Steele # (Auto) 0.91 K/uL (0.24-0.82) H 09/23/22 06:24 Eos # (Auto) 0.00 K/uL (0-0.50) 09/23/22 06:24 Baso # (Auto) 0.03 K/uL (0-0.2) 09/23/22 06:24 Immature Gran # (Auto) 0.22 K/uL (0.00-0.02) H 09/23/22 06:24 PT 21.4 Seconds (9.0-12.0) H 09/23/22 06:24 INR 2.1 (0.9-1.1) H 09/23/22 06:24 APTT 30.5 Seconds (21.0-31.0) 09/19/22 13:15 PTT Ratio 1.1 09/19/22 13:15 Sodium 139 mmol/L (136-145) 09/23/22 06:24 Potassium 4.3 mmol/L (3.5-5.1) 09/23/22 06:24 Chloride 98 mmol/L (98-107) 09/23/22 06:24 Carbon Dioxide 39 mmol/L (21-32) H 09/23/22 06:24 Anion Gap 2 (3-11) L 09/23/22 06:24 BUN 29 mg/dl (6-23) H 09/23/22 06:24 Creatinine 0.91 mg/dl (0.6-1.4) 09/23/22 06:24 Est Cr Clr Drug Dosing 169.4 ml/min 09/23/22 06:24 Est GFR ( Amer) 111.9 ml/min 09/23/22 06:24 Est GFR (Non-Af Amer) 96.6 ml/min 09/23/22 06:24 BUN/Creatinine Ratio 31.9 (10-20) H 09/23/22 06:24 Glucose 236 mg/dl (70-99(Fasting)) H 09/23/22 06:24 POC Glucose 216 mg/dl (70-99) H 09/23/22 11:19 Calcium 9.4 mg/dl (8.5-10.1) 09/23/22 06:24 Phosphorus 3.4 mg/dl (2.5-4.9) 09/23/22 06:24 Magnesium 2.0 mg/dl (1.7-2.4) 09/23/22 06:24 Total Bilirubin 1.1 mg/dl (0.2-1.0) H 09/19/22 13:15 AST 18 U/L (13-39) 09/19/22 13:15 ALT 18 U/L (7-52) 09/19/22 13:15 Alkaline Phosphatase 126 U/L (34-104) H 09/19/22 13:15 Troponin I High Sens 9.4 pg/ml (0-20) 09/19/22 13:15 B-Natriuretic Peptide 75 pg/ml (0-100) 09/19/22 14:00 Total Protein 7.0 gm/dl (6.0-8.3) 09/19/22 13:15 Albumin 3.5 gm/dl (3.4-5.0) 09/19/22 13:15 Globulin 3.5 gm/dl (2.5-4.0) 09/19/22 13:15 Albumin/Globulin Ratio 1.0 (0.9-2) 09/19/22 13:15 Procalcitonin 0.24 ng/ml (0-0.5) 09/19/22 15:27 Urine Color Yellow 09/19/22 17:16 Urine Appearance Clear (Clear) 09/19/22 17:16 Urine pH 6.0 (4.5-7.5) 09/19/22 17:16 Ur Specific [place] 1.006 (1.000-1.030) 09/19/22 17:16 Urine Protein Negative (Negative) 09/19/22 17:16 Urine Glucose (UA) Negative (Negative) 09/19/22 17:16 Urine Ketones Negative (Negative) 09/19/22 17:16 Urine Blood 2+ (Negative) H 09/19/22 17:16 Urine Nitrite Negative (Negative) 09/19/22 17:16 Urine Bilirubin Negative (Negative) 09/19/22 17:16 Urine Urobilinogen Negative (Negative) 09/19/22 17:16 Ur Leukocyte Esterase 2+ (Negative) H 09/19/22 17:16 Urine WBC (Auto) 10-30 /hpf (0-5) H 09/19/22 17:16 Urine RBC (Auto) 0-4 /hpf (0-4) 09/19/22 17:16 U Hyaline Cast (Auto) 10-30 /lpf (0-5) H 09/19/22 17:16 U Epithel Cells (Auto) 20-30 /lpf (0-5) H 09/19/22 17:16 Urine Bacteria (Auto) Negative (Negative) 09/19/22 17:16 Adenovirus (PCR) Not Detected (NotDetected) 09/19/22 17:16 B. pertussis DNA (PCR) Not Detected (NotDetected) 09/19/22 17:16 B.parapertussis DNA PCR Not Detected (NotDetected) 09/19/22 17:16 C. pneumoniae DNA (PCR) Not Detected (NotDetected) 09/19/22 17:16 Coronavirus OC43 (PCR) Not Detected (NotDetected) 09/19/22 17:16 Coronavirus HKU1 (PCR) Not Detected (NotDetected) 09/19/22 17:16 Coronavirus 229E (PCR) Not Detected (NotDetected) 09/19/22 17:16 SARS-CoV-2 (PCR) Not Detected (NotDetected) 09/19/22 17:16 Coronavirus NL63 (PCR) Not Detected (NotDetected) 09/19/22 17:16 Human Metapneumovir PCR Not Detected (NotDetected) 09/19/22 17:16 Influenza Type A (PCR) Not Detected (NotDetected) 09/19/22 17:16 Influenza Type B (PCR) Not Detected (NotDetected) 09/19/22 17:16 M. pneumoniae (PCR) Not Detected (NotDetected) 09/19/22 17:16 Parainfluenza 1 (PCR) Not Detected (NotDetected) 09/19/22 17:16 Parainfluenza 2 (PCR) Not Detected (NotDetected) 09/19/22 17:16 Parainfluenza 3 (PCR) Not Detected (NotDetected) 09/19/22 17:16 Parainfluenza 4 (PCR) Not Detected (NotDetected) 09/19/22 17:16 RSV (RT-PCR) Negative (Neg) 09/19/22 14:05 RSV (PCR) Not Detected (NotDetected) 09/19/22 17:16 Entero/Rhino (PCR) Not Detected (NotDetected) 09/19/22 17:16 Impressions Chest X-Ray 09/22/22 07:00 XR chest 1V portable HISTORY: 52 years-old Male CHF acute shortness of breath COMPARISON: September 20, 2022 TECHNIQUE: AP view of the chest FINDINGS: Cardiac silhouette is enlarged. Pulmonary vascular congestion with interstitial coarsening. No pneumothorax. Trace pleural effusions with mild bibasilar densities are unchanged. Healed chronic mid left clavicular fracture deformity. Bones appear grossly intact. IMPRESSION: 1. Cardiomegaly with stable mild pulmonary edema. 2. Unchanged trace pleural effusions with bibasilar atelectasis. ACT 112: Negative or not required by law. The above report was generated using voice recognition software. It may contain grammatical, syntax or spelling errors. Electronically signed by: Shelton Apodaca M.D. 09/22/2022 8:35 AM
[2022-09-23] MEDS: WARFARIN SOD 7.5 MG TAB PO SCH (17:17)
[2022-09-23] MEDS: ATORVASTATIN 40 MG TAB PO SCH (20:28)
[2022-09-23] MEDS ORDERED: LANTUS PER UNIT CHARGE SQ SCH (21:00)
[2022-09-23] MEDS: ACETAMINOPHEN 1,000 MG/100 ML VIAL IV PRN (21:23)
[2022-09-24] MEDS: PANTOprazole 40 MG TAB PO SCH (05:22)
[2022-09-24 07:05] LABS: Basophils # (auto) 0.06 K/uL (0-0.2); Basophils % (auto) 0.3 %; Hematocrit (blood only) 40.5 % (40.1-51.0); Hemoglobin 12.9 g/dl (14.0-18.0); Immature Granulocytes # (auto) 0.38 K/uL (0.00-0.02); Immature Granulocytes % (auto) 2.1 %; Lymphocytes # (auto) 2.99 K/uL (1.2-3.4); Lymphocytes % (auto) 16.6 %; Mean Corpuscular Hemoglobin 27.2 pg (25.0-34.0); Mean Corpuscular Hgb Conc 31.9 g/dL (32.0-36.0); Mean Corpuscular Volume 85.4 fL (80.0-100.0); Mean Platelet Volume 10.3 fL (9.4-12.4); Monocytes # (auto) 0.98 K/uL (0.24-0.82); Monocytes % (auto) 5.5 %; Neutrophils # (auto) 13.55 K/uL (1.4-6.5); Neutrophils % (auto) 75.5 %; Platelet Count 257 K/uL (130-400); RDW Coefficient of Variation 17.7 % (11.5-14.5); RDW Standard Deviation 54.7 fL (36.4-46.3); Red Blood Count 4.74 M/uL (4.63-6.08); White Blood Count 17.96 K/ul (4.8-10.8)
[2022-09-24] MEDS: ALBUT/IPRATROP 3MG/0.5MG NEB 3 ML VIAL NEB SCH ×4 (07:15→19:53)
[2022-09-24 07:40] LABS: INR 1.4 (0.9-1.1); Prothrombin Time 15.1 Seconds (9.0-12.0)
[2022-09-24 07:45] LABS: BUN Creatinine Ratio 38.2 (10-20); Calcium 9.8 mg/dl (8.5-10.1); Creatinine Clr Calc Pharmacy 201.9 ml/min; Est GFR (African American) 121.6 ml/min; Est GFR (Non-African American) 104.9 ml/min; Magnesium 2.1 mg/dl (1.7-2.4); Potassium 4.6 mmol/L (3.5-5.1)
[2022-09-24] MEDS: INSULIN ASPART PER UNIT SC SCH ×4 (08:39→21:10)
[2022-09-24] MEDS: LANTUS PER UNIT CHARGE SQ SCH ×2 (08:40→21:10)
[2022-09-24] MEDS: FERROUS SULFATE 325 MG TAB PO SCH (08:51)
[2022-09-24] MEDS: ASPIRIN 81 MG ECTAB PO SCH (08:51)
[2022-09-24] MEDS: NICOTINE 21 MG/24 HR TDSY TD SCH (08:51)
[2022-09-24] MEDS: GABAPENTIN 800 MG TAB PO SCH ×3 (08:51→21:05)
[2022-09-24] MEDS: DOCUSATE SODIUM 100 MG CAP PO SCH ×2 (08:52→21:07)
[2022-09-24] MEDS: DOXYCYCLINE HYCLATE 100 MG CAP PO SCH (08:52)
[2022-09-24] MEDS: MAGNESIUM OXIDE 400 MG TAB PO SCH (08:52)
[2022-09-24] MEDS: ADVANCED PROBIOTIC 1250 MG CAPSULE PO SCH (08:53)
[2022-09-24] MEDS: SENNA 8.6 MG TAB PO PRN (08:53)
[2022-09-24] MEDS: FOLIC ACID 1 MG TAB PO SCH (08:53)
[2022-09-24] MEDS: ISOSORBIDE DINITRATE 10 MG TAB PO SCH (08:53)
[2022-09-24] MEDS: SPIRONOLACTONE 25 MG TAB PO SCH (08:53)
[2022-09-24] MEDS: DULoxetine HCL 60 MG CAP PO SCH (08:53)
[2022-09-24] MEDS: TAMSULOSIN HCL 0.4 MG CAP PO SCH (08:53)
[2022-09-24] MEDS: FINASTERIDE 5 MG TAB PO SCH (08:53)
[2022-09-24] MEDS: FLUTICASONE PROPIONATE NA SPR 16 GM BTL NAE SCH (08:54)
[2022-09-24] MEDS: FAMOTIDINE 20 MG TAB PO SCH (08:54)
[2022-09-24] MEDS: POTASSIUM CHLORIDE CRTAB 20 MEQ TABCR PO SCH ×2 (08:54→21:05)
[2022-09-24] MEDS: UMECLIDINIUM/VILANTEROL 62.5/25MCG 7 PUFFS/INHALER INH SCH (08:55)
[2022-09-24] MEDS: FUROSEMIDE 40 MG/4 ML VIAL IV SCH (08:55)
[2022-09-24] MEDS: CYCLOBENZAPRINE HCL 10 MG TAB PO PRN ×2 (09:16→21:18)
[2022-09-24] MEDS: LORazepam 0.5 MG TAB PO PRN ×2 (09:16→18:04)
[2022-09-24] MEDS: ACETAMINOPHEN 1,000 MG/100 ML VIAL IV PRN ×2 (09:16→18:04)
[2022-09-24] MEDS: buprenorphine HCL 8 MG SUBL SL SCH ×3 (09:16→21:18)
[2022-09-24] MEDS: methylPREDNISolone 40 MG in SYRINGE 0 ML IV SCH ×2 (09:16→21:05)
[2022-09-24] MEDS: guaiFENesin/DEXTROM SYRUP 100MG/10MG 5ML UDC PO PRN ×2 (10:09→18:04)
[2022-09-24] MEDS: METOPROLOL SUCC 25MG EXT REL TAB PO SCH ×2 (10:10→21:08)
--- NOTE | 2022-09-24 13:45 | Hospitalist Progress Note ---
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 Acute on chronic respiratory failure with Hypoxia Acute COPD exacerbation H/O DARIA, COPD, Asthma Ongoing tobacco use disorder Recently completed course of Macrobid and steroid taper in outpatient setting -CXR:No change in appearance of the chest. Cardiomegaly with pulmonary vascular congestion. -Respiratory panel:Negative -Procalcitonin 0.24 Continue IV Solu-Medrol, nebs Continue supplemental oxygen to keep saturations 88 to 92% Continue pulmonary hygiene Continue doxycycline Needs outpatient sleep study Counseled to quit smoking Nicotine patch Slowly improving Titrate down steroids as able Acute on chronic diastolic CHF CXR as above Last ECHO:08/16: EF of 55 to 60%, mild concentric LVH, RV is mildly dilated, RV systolic function is normal and poorly visualized valvular anatomy without significant stenosis or regurgitation BUN uptrending; will hold off on additional Lasix for today. Daily weight, I/Os Oxygen support PRN Monitor renal function/electrolytes, volume status Continue fluid restriction Hypokalemia Hypophosphatemia Hypomagnesemia Replete electrolytes as needed Chronic indwelling Lloyd Catheter Urine culture negative Changed Lloyd catheter Constipation: continue bowel regimen H/O Pulmonary embolism INR initially supratherapeutic; subtherapeutic today. Continue on Coumadin DM II Last Hb A1C:8.8 Hold home agents Basal/bolus insulin per protocol BSG AC HS Chronic pain syndrome Right foot pain On Suboxone DVT Px: Coumadin resumed. Code status: FULL CODE Disposition PT OT evaluation done; recommended to return home with continued family support when medically clear. Admission and Anticipated Discharge Date Admission Date: September 19, 2022 Subjective Patient seen and examined at bedside. He reports slight improvement in wheeze. No fever, chills, chest pain or palpitations. Review of Systems Review of Systems: All systems reviewed & are unremarkable except as noted in Subjective Physical Exam Physical Exam: Physical Exam: Vitals signs as noted above General Appearance:Morbidly Obese, no apparent distress Head: normocephalic, Atraumatic Eyes: normal inspection, EOMI Neck: supple, Trachea midline Respiratory/Chest: Decrease breath sounds at bases, B/L expiratory wheezing; slightly improved from yesterday. No accessory muscle use Cardiovascular: S1, S2, No murmur Abdomen/GI:Soft, Non tender, Bowel sounds present Extremities/Musculoskeletal:normal inspection, chronic venous stasis changes, nonpitting trace edema Neurologic/Psych:AAOX3, grossly no focal neurological deficits Skin: normal color, warm Results & Data Results & Data ([facility]) Vital Signs (Past 12 Hours) Vital Signs Temp Pulse Pulse Resp BP Pulse Ox O2 Del Method 09/24/22 11:54 36.8 C 82 18 137/62 94 Nasal Cannula 09/24/22 10:58 121 H 18 95 Nasal Cannula 09/24/22 08:10 36.5 C 72 18 151/68 H 93 Nasal Cannula 09/24/22 08:10 61 09/24/22 08:04 Nasal Cannula 09/24/22 07:15 81 20 97 Nasal Cannula 09/24/22 03:43 36.6 C 67 22 132/71 94 Nasal Cannula O2 Flow Rate 09/24/22 11:54 2 09/24/22 10:58 3 09/24/22 08:10 4 09/24/22 08:10 09/24/22 08:04 4 09/24/22 07:15 4 09/24/22 03:43 4.0 Laboratory Results Laboratory Results WBC 17.96 K/ul (4.8-10.8) H 09/24/22 06:22 RBC 4.74 M/uL (4.63-6.08) 09/24/22 06:22 Hgb 12.9 g/dl (14.0-18.0) L 09/24/22 06:22 Hct 40.5 % (40.1-51.0) 09/24/22 06:22 MCV 85.4 fL (80.0-100.0) 09/24/22 06:22 MCH 27.2 pg (25.0-34.0) 09/24/22 06: MCHC 31.9 g/dL (32.0-36.0) L 09/24/22 06:22 RDW Std Deviation 54.7 fL (36.4-46.3) H 09/24/22 06: RDW Coeff of Megan 17.7 % (11.5-14.5) H 09/24/22 06:22 Plt Count 257 K/uL (130-400) 09/24/22 06:22 MPV 10.3 fL (9.4-12.4) 09/24/22 06:22 Immature Gran % (Auto) 2.1 % 09/24/22 06:22 Neut % (Auto) 75.5 % 09/24/22 06:22 Lymph % (Auto) 16.6 % 09/24/22 06:22 Story % (Auto) 5.5 % 09/24/22 06:22 Eos % (Auto) 0.0 % 09/24/22 06:22 Baso % (Auto) 0.3 % 09/24/22 06:22 Neut # (Auto) 13.55 K/uL (1.4-6.5) H 09/24/22 06:22 Lymph # (Auto) 2.99 K/uL (1.2-3.4) 09/24/22 06:22 Story # (Auto) 0.98 K/uL (0.24-0.82) H 09/24/22 06:22 Eos # (Auto) 0.00 K/uL (0-0.50) 09/24/22 06:22 Baso # (Auto) 0.06 K/uL (0-0.2) 09/24/22 06:22 Immature Gran # (Auto) 0.38 K/uL (0.00-0.02) H 09/24/22 06:22 PT 15.1 Seconds (9.0-12.0) H 09/24/22 06:22 INR 1.4 (0.9-1.1) H 09/24/22 06:22 APTT 30.5 Seconds (21.0-31.0) 09/19/22 13:15 PTT Ratio 1.1 09/19/22 13:15 Sodium 139 mmol/L (136-145) 09/24/22 06:22 Potassium 4.6 mmol/L (3.5-5.1) 09/24/22 06:22 Chloride 99 mmol/L (98-107) 09/24/22 06:22 Carbon Dioxide 39 mmol/L (21-32) H 09/24/22 06:22 Anion Gap 1 (3-11) L 09/24/22 06:22 BUN 29 mg/dl (6-23) H 09/24/22 06:22 Creatinine 0.76 mg/dl (0.6-1.4) 09/24/22 06:22 Est Cr Clr Drug Dosing 201.9 ml/min 09/24/22 06:22 Est GFR ( Amer) 121.6 ml/min 09/24/22 06:22 Est GFR (Non-Af Amer) 104.9 ml/min 09/24/22 06:22 BUN/Creatinine Ratio 38.2 (10-20) H 09/24/22 06:22 Glucose 191 mg/dl (70-99(Fasting)) H 09/24/22 06:22 POC Glucose 164 mg/dl (70-99) H 09/24/22 11:21 Calcium 9.8 mg/dl (8.5-10.1) 09/24/22 06:22 Phosphorus 3.4 mg/dl (2.5-4.9) 09/23/22 06:24 Magnesium 2.1 mg/dl (1.7-2.4) 09/24/22 06:22 Total Bilirubin 1.1 mg/dl (0.2-1.0) H 09/19/22 13:15 AST 18 U/L (13-39) 09/19/22 13:15 ALT 18 U/L (7-52) 09/19/22 13:15 Alkaline Phosphatase 126 U/L (34-104) H 09/19/22 13:15 Troponin I High Sens 9.4 pg/ml (0-20) 09/19/22 13:15 B-Natriuretic Peptide 75 pg/ml (0-100) 09/19/22 14:00 Total Protein 7.0 gm/dl (6.0-8.3) 09/19/22 13:15 Albumin 3.5 gm/dl (3.4-5.0) 09/19/22 13:15 Globulin 3.5 gm/dl (2.5-4.0) 09/19/22 13:15 Albumin/Globulin Ratio 1.0 (0.9-2) 09/19/22 13:15 Procalcitonin 0.24 ng/ml (0-0.5) 09/19/22 15:27 Urine Color Yellow 09/19/22 17:16 Urine Appearance Clear (Clear) 09/19/22 17:16 Urine pH 6.0 (4.5-7.5) 09/19/22 17:16 Ur Specific [place] 1.006 (1.000-1.030) 09/19/22 17:16 Urine Protein Negative (Negative) 09/19/22 17:16 Urine Glucose (UA) Negative (Negative) 09/19/22 17:16 Urine Ketones Negative (Negative) 09/19/22 17:16 Urine Blood 2+ (Negative) H 09/19/22 17:16 Urine Nitrite Negative (Negative) 09/19/22 17:16 Urine Bilirubin Negative (Negative) 09/19/22 17:16 Urine Urobilinogen Negative (Negative) 09/19/22 17:16 Ur Leukocyte Esterase 2+ (Negative) H 09/19/22 17:16 Urine WBC (Auto) 10-30 /hpf (0-5) H 09/19/22 17:16 Urine RBC (Auto) 0-4 /hpf (0-4) 09/19/22 17:16 U Hyaline Cast (Auto) 10-30 /lpf (0-5) H 09/19/22 17:16 U Epithel Cells (Auto) 20-30 /lpf (0-5) H 09/19/22 17:16 Urine Bacteria (Auto) Negative (Negative) 09/19/22 17:16 Adenovirus (PCR) Not Detected (NotDetected) 09/19/22 17:16 B. pertussis DNA (PCR) Not Detected (NotDetected) 09/19/22 17:16 B.parapertussis DNA PCR Not Detected (NotDetected) 09/19/22 17:16 C. pneumoniae DNA (PCR) Not Detected (NotDetected) 09/19/22 17:16 Coronavirus OC43 (PCR) Not Detected (NotDetected) 09/19/22 17:16 Coronavirus HKU1 (PCR) Not Detected (NotDetected) 09/19/22 17:16 Coronavirus 229E (PCR) Not Detected (NotDetected) 09/19/22 17:16 SARS-CoV-2 (PCR) Not Detected (NotDetected) 09/19/22 17:16 Coronavirus NL63 (PCR) Not Detected (NotDetected) 09/19/22 17:16 Human Metapneumovir PCR Not Detected (NotDetected) 09/19/22 17:16 Influenza Type A (PCR) Not Detected (NotDetected) 09/19/22 17:16 Influenza Type B (PCR) Not Detected (NotDetected) 09/19/22 17:16 M. pneumoniae (PCR) Not Detected (NotDetected) 09/19/22 17:16 Parainfluenza 1 (PCR) Not Detected (NotDetected) 09/19/22 17:16 Parainfluenza 2 (PCR) Not Detected (NotDetected) 09/19/22 17:16 Parainfluenza 3 (PCR) Not Detected (NotDetected) 09/19/22 17:16 Parainfluenza 4 (PCR) Not Detected (NotDetected) 09/19/22 17:16 RSV (RT-PCR) Negative (Neg) 09/19/22 14:05 RSV (PCR) Not Detected (NotDetected) 09/19/22 17:16 Entero/Rhino (PCR) Not Detected (NotDetected) 09/19/22 17:16 Impressions Chest X-Ray 09/22/22 07:00 XR chest 1V portable HISTORY: 52 years-old Male CHF acute shortness of breath COMPARISON: September 20, 2022 TECHNIQUE: AP view of the chest FINDINGS: Cardiac silhouette is enlarged. Pulmonary vascular congestion with interstitial coarsening. No pneumothorax. Trace pleural effusions with mild bibasilar densities are unchanged. Healed chronic mid left clavicular fracture deformity. Bones appear grossly intact. IMPRESSION: 1. Cardiomegaly with stable mild pulmonary edema. 2. Unchanged trace pleural effusions with bibasilar atelectasis. ACT 112: Negative or not required by law. The above report was generated using voice recognition software. It may contain grammatical, syntax or spelling errors. Electronically signed by: Shelton Apodaca M.D. 09/22/2022 8:35 AM
[2022-09-24] MEDS: WARFARIN SOD 7.5 MG TAB PO SCH (17:11)
[2022-09-24] MEDS: ATORVASTATIN 40 MG TAB PO SCH (21:07)
[2022-09-25] MEDS: ALBUT/IPRATROP 3MG/0.5MG NEB 3 ML VIAL NEB SCH ×4 (05:11→20:07)
[2022-09-25] MEDS: PANTOprazole 40 MG TAB PO SCH (06:35)
[2022-09-25 07:08] LABS: Basophils # (auto) 0.05 K/uL (0-0.2); Basophils % (auto) 0.3 %; Hematocrit (blood only) 41.3 % (40.1-51.0); Hemoglobin 13.1 g/dl (14.0-18.0); Immature Granulocytes # (auto) 0.45 K/uL (0.00-0.02); Immature Granulocytes % (auto) 2.4 %; Lymphocytes # (auto) 3.05 K/uL (1.2-3.4); Mean Corpuscular Hemoglobin 27.2 pg (25.0-34.0); Mean Corpuscular Hgb Conc 31.7 g/dL (32.0-36.0); Mean Corpuscular Volume 85.7 fL (80.0-100.0); Mean Platelet Volume 10.1 fL (9.4-12.4); Monocytes # (auto) 0.95 K/uL (0.24-0.82); Neutrophils # (auto) 14.54 K/uL (1.4-6.5); Neutrophils % (auto) 76.3 %; Platelet Count 244 K/uL (130-400); RDW Coefficient of Variation 17.6 % (11.5-14.5); RDW Standard Deviation 54.5 fL (36.4-46.3); Red Blood Count 4.82 M/uL (4.63-6.08); White Blood Count 19.04 K/ul (4.8-10.8)
[2022-09-25 07:30] LABS: INR 1.9 (0.9-1.1); Prothrombin Time 19.7 Seconds (9.0-12.0)
[2022-09-25 07:43] LABS: BUN Creatinine Ratio 41.1 (10-20); Calcium 9.7 mg/dl (8.5-10.1); Creatinine Clr Calc Pharmacy 212.1 ml/min; Est GFR (African American) 123.6 ml/min; Est GFR (Non-African American) 106.6 ml/min; Magnesium 2.4 mg/dl (1.7-2.4); Potassium 4.8 mmol/L (3.5-5.1)
[2022-09-25] MEDS: FERROUS SULFATE 325 MG TAB PO SCH (08:38)
[2022-09-25] MEDS: ASPIRIN 81 MG ECTAB PO SCH (08:38)
[2022-09-25] MEDS: FINASTERIDE 5 MG TAB PO SCH (08:39)
[2022-09-25] MEDS: FAMOTIDINE 20 MG TAB PO SCH (08:39)
[2022-09-25] MEDS: DOCUSATE SODIUM 100 MG CAP PO SCH ×2 (08:39→21:15)
[2022-09-25] MEDS: DULoxetine HCL 60 MG CAP PO SCH (08:39)
[2022-09-25] MEDS: FLUTICASONE PROPIONATE NA SPR 16 GM BTL NAE SCH (08:40)
[2022-09-25] MEDS: GABAPENTIN 800 MG TAB PO SCH ×3 (08:40→21:16)
[2022-09-25] MEDS: FOLIC ACID 1 MG TAB PO SCH (08:40)
[2022-09-25] MEDS: ISOSORBIDE DINITRATE 10 MG TAB PO SCH (08:40)
[2022-09-25] MEDS: MAGNESIUM OXIDE 400 MG TAB PO SCH (08:41)
[2022-09-25] MEDS: ADVANCED PROBIOTIC 1250 MG CAPSULE PO SCH (08:41)
[2022-09-25] MEDS: METOPROLOL SUCC 25MG EXT REL TAB PO SCH ×2 (08:42→21:17)
[2022-09-25] MEDS: methylPREDNISolone 40 MG in SYRINGE 0 ML IV SCH (08:42)
[2022-09-25] MEDS: NICOTINE 21 MG/24 HR TDSY TD SCH (08:42)
[2022-09-25] MEDS: POTASSIUM CHLORIDE CRTAB 20 MEQ TABCR PO SCH ×2 (08:42→21:17)
[2022-09-25] MEDS: LORazepam 0.5 MG TAB PO PRN ×2 (08:43→21:27)
[2022-09-25] MEDS: ACETAMINOPHEN 1,000 MG/100 ML VIAL IV PRN (08:43)
[2022-09-25] MEDS: TAMSULOSIN HCL 0.4 MG CAP PO SCH (08:43)
[2022-09-25] MEDS: CYCLOBENZAPRINE HCL 10 MG TAB PO PRN ×2 (08:43→21:12)
[2022-09-25] MEDS: guaiFENesin/DEXTROM SYRUP 100MG/10MG 5ML UDC PO PRN ×2 (08:43→16:51)
[2022-09-25] MEDS: UMECLIDINIUM/VILANTEROL 62.5/25MCG 7 PUFFS/INHALER INH SCH (08:43)
[2022-09-25] MEDS: SPIRONOLACTONE 25 MG TAB PO SCH (08:43)
[2022-09-25] MEDS: INSULIN ASPART PER UNIT SC SCH ×4 (09:02→21:15)
[2022-09-25] MEDS: LANTUS PER UNIT CHARGE SQ SCH ×2 (09:03→23:16)
[2022-09-25] MEDS: buprenorphine HCL 8 MG SUBL SL SCH ×3 (09:08→21:12)
--- NOTE | 2022-09-25 10:38 | Pharmacy Report ---
Pharmacy Glycemic Short Note 2 - Date of Service September 25, 2022 - Glycemic Short BSG Results (Last 24 hours): 09/24/22 09/24/22 09/24/22 11:21 16:37 20:15 Glucose POC Glucose 164 H 108 H 143 H 09/25/22 09/25/22 06:24 07:16 Glucose 152 H POC Glucose 138 H OUTPATIENT ANTIDIABETIC REGIMEN: * Lantus 50 units SC HS * Novolog SSI * Glipizide 10 mg PO BIDM * HbA1c: 8.8% (08/15/22) ASSESSMENT: 09/25: * Patient received 205 units of insulin yesterday of which 110 were basal * Fasting BSG this AM 138, continue current basal regimen * Prandial BSGs seem to be correcting well on current Novolog parameters * Methylprednisolone 40mg IV BID continues. 09/22: * Mr. Milner received a total of 331 units of insulin yesterday (130 units basal + 201 units bolus). BSGs were: [phone] mg/dL. * Fasting BSG this AM was 115 mg/dL. This is well controlled and shows significant improvement since yesterday. Will back off on basal slightly today. * Postprandial BSGs are uncontrolled. Novolog parameters are very tight at this point. Will tighten carb ratio slightly to try and help control postprandials. 09/21: * Patient received 329 units of insulin yesterday- 130 units of basal, 199 units of bolus novolog (correctional + prandial) * Fasting BSG was down to 174 mg/dL with additional overnight checks. Will continue lantus scale, solumedrol was titrated down to q12H from q8H * Lunch BSG elevated, will tighten carb ratio slightly- watch for need to loosen as solumedrol titrated 09/20: * Patient admitted with possible bronchitis - started on solumedrol 40 mg iv q 8 hr. Patient is type 2 diabetic, pharmacy consulted for glycemic management * Patient previously admitted 08/19. At that time he was on solumedrol 40 mg iv bid and was requiring >300 units of insulin. Basal insulin was about ~100 -130 units daily and BSGs still in 200s * BSG this AM was 350 mg/dL - Will give an additional 70 units of basal insulin x 1 this morning (had gotten only 25 units basal last night). Will have scale for basal for HS time 40-60 units PLAN FOR INPATIENT GLYCEMIC CONTROL: * Hold outpatient oral diabetes medications * Basal insulin * Lantus 60 units SC QAM, 50 units QHS * Bolus insulin * NovoLog per scale ACHS or Q6hrs while NPO * Goal Range: Low 110 mg/dL - High 140 mg/dL * Correction Factor: 5 mg/dL/unit * Nutritional / Prandial insulin per carb ratio of 1 unit per 2 grams CHO consumed
--- NOTE | 2022-09-25 12:24 | Hospitalist Progress Note ---
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 Acute on chronic respiratory failure with Hypoxia Acute COPD exacerbation H/O DARIA, COPD, Asthma Ongoing tobacco use disorder Recently completed course of Macrobid and steroid taper in outpatient setting -CXR:No change in appearance of the chest. Cardiomegaly with pulmonary vascular congestion. -Respiratory panel:Negative -Procalcitonin 0.24 Decrease IV methylprednisolone to 40 mg once daily. Continue supplemental oxygen to keep saturations 88 to 92% Continue pulmonary hygiene Status post 5 days doxycycline Needs outpatient sleep study Counseled to quit smoking Nicotine patch Acute on chronic diastolic CHF CXR as above Last ECHO:08/16: EF of 55 to 60%, mild concentric LVH, RV is mildly dilated, RV systolic function is normal and poorly visualized valvular anatomy without significant stenosis or regurgitation BUN uptrending; resume home Lasix 40 mg twice daily Daily weight, I/Os Oxygen support PRN Monitor renal function/electrolytes, volume status Continue fluid restriction Hypokalemia Hypophosphatemia Hypomagnesemia Replete electrolytes as needed Chronic indwelling Lloyd Catheter Urine culture negative Changed Lloyd catheter Constipation: continue bowel regimen H/O Pulmonary embolism INR initially supratherapeutic; subtherapeutic today. Continue on Coumadin DM II Last Hb A1C:8.8 Hold home agents Basal/bolus insulin per protocol BSG AC HS Chronic pain syndrome Right foot pain On Suboxone DVT Px: Coumadin resumed. Code status: FULL CODE Disposition PT OT evaluation done; referral sent for home health. Admission and Anticipated Discharge Date Admission Date: September 19, 2022 Subjective Patient seen and examined at bedside. He continues to complain of shortness of breath with minimal exertion. He feels that he is not ready to go home. Case management on board; patient referred to home health. Review of Systems Review of Systems: All systems reviewed & are unremarkable except as noted in Subjective Physical Exam Physical Exam: Physical Exam: Vitals signs as noted above General Appearance:Morbidly Obese, no apparent distress Head: normocephalic, Atraumatic Eyes: normal inspection, EOMI Neck: supple, Trachea midline Respiratory/Chest: Decrease breath sounds at bases, B/L expiratory wheezing; slightly improved from yesterday. No accessory muscle use Cardiovascular: S1, S2, No murmur Abdomen/GI:Soft, Non tender, Bowel sounds present Extremities/Musculoskeletal:normal inspection, chronic venous stasis changes, nonpitting trace edema Neurologic/Psych:AAOX3, grossly no focal neurological deficits Skin: normal color, warm Results & Data Results & Data ([facility]) Vital Signs (Past 12 Hours) Vital Signs Temp Pulse Pulse Resp BP Pulse Ox O2 Del Method 09/25/22 07:00 61 09/25/22 11:50 Nasal Cannula 09/25/22 10:58 20 97 Nasal Cannula 09/25/22 08:03 36.6 C 62 20 119/69 94 Nasal Cannula 09/25/22 05:12 64 20 93 Nasal Cannula 09/25/22 03:02 36.8 C 67 18 173/65 H 93 Nasal Cannula O2 Flow Rate 09/25/22 07:00 09/25/22 11:50 3 09/25/22 10:58 3 09/25/22 08:03 3 09/25/22 05:12 2 09/25/22 03:02 3 Laboratory Results Laboratory Results WBC 19.04 K/ul (4.8-10.8) H 09/25/22 06:24 RBC 4.82 M/uL (4.63-6.08) 09/25/22 06:24 Hgb 13.1 g/dl (14.0-18.0) L 09/25/22 06:24 Hct 41.3 % (40.1-51.0) 09/25/22 06:24 MCV 85.7 fL (80.0-100.0) 09/25/22 06:24 MCH 27.2 pg (25.0-34.0) 09/25/22 06:24 MCHC 31.7 g/dL (32.0-36.0) L 09/25/22 06:24 RDW Std Deviation 54.5 fL (36.4-46.3) H 09/25/22 06:24 RDW Coeff of Megan 17.6 % (11.5-14.5) H 09/25/22 06:24 Plt Count 244 K/uL (130-400) 09/25/22 06:24 MPV 10.1 fL (9.4-12.4) 09/25/22 06:24 Immature Gran % (Auto) 2.4 % 09/25/22 06:24 Neut % (Auto) 76.3 % 09/25/22 06:24 Lymph % (Auto) 16.0 % 09/25/22 06:24 [place] % (Auto) 5.0 % 09/25/22 06:24 Eos % (Auto) 0.0 % 09/25/22 06:24 Baso % (Auto) 0.3 % 09/25/22 06:24 Neut # (Auto) 14.54 K/uL (1.4-6.5) H 09/25/22 06:24 Lymph # (Auto) 3.05 K/uL (1.2-3.4) 09/25/22 06:24 [place] # (Auto) 0.95 K/uL (0.24-0.82) H 09/25/22 06:24 Eos # (Auto) 0.00 K/uL (0-0.50) 09/25/22 06:24 Baso # (Auto) 0.05 K/uL (0-0.2) 09/25/22 06:24 Immature Gran # (Auto) 0.45 K/uL (0.00-0.02) H 09/25/22 06:24 PT 19.7 Seconds (9.0-12.0) H 09/25/22 06:24 INR 1.9 (0.9-1.1) H 09/25/22 06:24 APTT 30.5 Seconds (21.0-31.0) 09/19/22 13:15 PTT Ratio 1.1 09/19/22 13:15 Sodium 137 mmol/L (136-145) 01/06/23 06:24 Potassium 4.8 mmol/L (3.5-5.1) 09/25/22 06:24 Chloride 101 mmol/L (98-107) 09/25/22 06:24 Carbon Dioxide 36 mmol/L (21-32) H 09/25/22 06:24 Anion Gap 0 (3-11) L 09/25/22 06:24 BUN 30 mg/dl (6-23) H 09/25/22 06:24 Creatinine 0.73 mg/dl (0.6-1.4) 09/25/22 06:24 Est Cr Clr Drug Dosing 212.1 ml/min 09/25/22 06:24 Est GFR ( Amer) 123.6 ml/min 09/25/22 06:24 Est GFR (Non-Af Amer) 106.6 ml/min 09/25/22 06:24 BUN/Creatinine Ratio 41.1 (10-20) H 09/25/22 06:24 Glucose 152 mg/dl (70-99(Fasting)) H 09/25/22 06:24 POC Glucose 161 mg/dl (70-99) H 09/25/22 11:27 Calcium 9.7 mg/dl (8.5-10.1) 09/25/22 06:24 Phosphorus 3.4 mg/dl (2.5-4.9) 09/23/22 06:24 Magnesium 2.4 mg/dl (1.7-2.4) 09/25/22 06:24 Total Bilirubin 1.1 mg/dl (0.2-1.0) H 09/19/22 13:15 AST 18 U/L (13-39) 09/19/22 13:15 ALT 18 U/L (7-52) 09/19/22 13:15 Alkaline Phosphatase 126 U/L (34-104) H 09/19/22 13:15 Troponin I High Sens 9.4 pg/ml (0-20) 09/19/22 13:15 B-Natriuretic Peptide 75 pg/ml (0-100) 09/19/22 14:00 Total Protein 7.0 gm/dl (6.0-8.3) 09/19/22 13:15 Albumin 3.5 gm/dl (3.4-5.0) 09/19/22 13:15 Globulin 3.5 gm/dl (2.5-4.0) 09/19/22 13:15 Albumin/Globulin Ratio 1.0 (0.9-2) 09/19/22 13:15 Procalcitonin 0.24 ng/ml (0-0.5) 09/19/22 15:27 Urine Color Yellow 09/19/22 17:16 Urine Appearance Clear (Clear) 09/19/22 17:16 Urine pH 6.0 (4.5-7.5) 09/19/22 17:16 Ur Specific [place] 1.006 (1.000-1.030) 09/19/22 17:16 Urine Protein Negative (Negative) 09/19/22 17:16 Urine Glucose (UA) Negative (Negative) 09/19/22 17:16 Urine Ketones Negative (Negative) 09/19/22 17:16 Urine Blood 2+ (Negative) H 09/19/22 17:16 Urine Nitrite Negative (Negative) 09/19/22 17:16 Urine Bilirubin Negative (Negative) 09/19/22 17:16 Urine Urobilinogen Negative (Negative) 09/19/22 17:16 Ur Leukocyte Esterase 2+ (Negative) H 09/19/22 17:16 Urine WBC (Auto) 10-30 /hpf (0-5) H 09/19/22 17:16 Urine RBC (Auto) 0-4 /hpf (0-4) 09/19/22 17:16 U Hyaline Cast (Auto) 10-30 /lpf (0-5) H 09/19/22 17:16 U Epithel Cells (Auto) 20-30 /lpf (0-5) H 09/19/22 17:16 Urine Bacteria (Auto) Negative (Negative) 09/19/22 17:16 Adenovirus (PCR) Not Detected (NotDetected) 09/19/22 17:16 B. pertussis DNA (PCR) Not Detected (NotDetected) 09/19/22 17:16 B.parapertussis DNA PCR Not Detected (NotDetected) 09/19/22 17:16 C. pneumoniae DNA (PCR) Not Detected (NotDetected) 09/19/22 17:16 Coronavirus OC43 (PCR) Not Detected (NotDetected) 09/19/22 17:16 Coronavirus HKU1 (PCR) Not Detected (NotDetected) 09/19/22 17:16 Coronavirus 229E (PCR) Not Detected (NotDetected) 09/19/22 17:16 SARS-CoV-2 (PCR) Not Detected (NotDetected) 09/19/22 17:16 Coronavirus NL63 (PCR) Not Detected (NotDetected) 09/19/22 17:16 Human Metapneumovir PCR Not Detected (NotDetected) 09/19/22 17:16 Influenza Type A (PCR) Not Detected (NotDetected) 09/19/22 17:16 Influenza Type B (PCR) Not Detected (NotDetected) 09/19/22 17:16 M. pneumoniae (PCR) Not Detected (NotDetected) 09/19/22 17:16 Parainfluenza 1 (PCR) Not Detected (NotDetected) 09/19/22 17:16 Parainfluenza 2 (PCR) Not Detected (NotDetected) 09/19/22 17:16 Parainfluenza 3 (PCR) Not Detected (NotDetected) 09/19/22 17:16 Parainfluenza 4 (PCR) Not Detected (NotDetected) 09/19/22 17:16 RSV (RT-PCR) Negative (Neg) 09/19/22 14:05 RSV (PCR) Not Detected (NotDetected) 09/19/22 17:16 Entero/Rhino (PCR) Not Detected (NotDetected) 09/19/22 17:16 Impressions Chest X-Ray 09/22/22 07:00 XR chest 1V portable HISTORY: 52 years-old Male CHF acute shortness of breath COMPARISON: September 20, 2022 TECHNIQUE: AP view of the chest FINDINGS: Cardiac silhouette is enlarged. Pulmonary vascular congestion with interstitial coarsening. No pneumothorax. Trace pleural effusions with mild bibasilar densities are unchanged. Healed chronic mid left clavicular fracture deformity. Bones appear grossly intact. IMPRESSION: 1. Cardiomegaly with stable mild pulmonary edema. 2. Unchanged trace pleural effusions with bibasilar atelectasis. ACT 112: Negative or not required by law. The above report was generated using voice recognition software. It may contain grammatical, syntax or spelling errors. Electronically signed by: Shelton Apodaca M.D. 09/22/2022 8:35 AM
[2022-09-25] MEDS: WARFARIN SOD 7.5 MG TAB PO SCH (16:51)
[2022-09-25] MEDS: FUROSEMIDE 40 MG TAB PO SCH (16:51)
[2022-09-25] MEDS ORDERED: ACETAMINOPHEN 1,000 MG/100 ML VIAL IV PRN (17:40)
[2022-09-25] MEDS: SODIUM CHLOR 7% 4 ML NEB NEB SCH (20:08)
[2022-09-25] MEDS: ATORVASTATIN 40 MG TAB PO SCH (21:15)
[2022-09-26] MEDS: guaiFENesin/DEXTROM SYRUP 100MG/10MG 5ML UDC PO PRN ×3 (00:40→19:56)
[2022-09-26] MEDS: PANTOprazole 40 MG TAB PO SCH (06:13)
[2022-09-26 06:56] LABS: Hematocrit (blood only) 43.7 % (40.1-51.0); Hemoglobin 13.7 g/dl (14.0-18.0); Mean Corpuscular Hemoglobin 27.1 pg (25.0-34.0); Mean Corpuscular Hgb Conc 31.4 g/dL (32.0-36.0); Mean Corpuscular Volume 86.5 fL (80.0-100.0); Mean Platelet Volume 10.3 fL (9.4-12.4); Platelet Count 247 K/uL (130-400); RDW Coefficient of Variation 17.9 % (11.5-14.5); RDW Standard Deviation 55.8 fL (36.4-46.3); Red Blood Count 5.05 M/uL (4.63-6.08); White Blood Count 19.75 K/ul (4.8-10.8)
[2022-09-26 07:06] LABS: INR 2.7 (0.9-1.1); Prothrombin Time 27.4 Seconds (9.0-12.0)
[2022-09-26] MEDS: SODIUM CHLOR 7% 4 ML NEB NEB SCH ×2 (07:11→20:58)
[2022-09-26] MEDS: ALBUT/IPRATROP 3MG/0.5MG NEB 3 ML VIAL NEB SCH ×4 (07:11→20:23)
[2022-09-26 07:23] LABS: BUN Creatinine Ratio 35.7 (10-20); Calcium 9.7 mg/dl (8.5-10.1); Creatinine Clr Calc Pharmacy 183.7 ml/min; Est GFR (African American) 116.7 ml/min; Est GFR (Non-African American) 100.7 ml/min; Magnesium 2.3 mg/dl (1.7-2.4)
[2022-09-26 08:04] LABS: Basophils # (auto) 0.06 K/uL (0-0.2); Basophils % (auto) 0.3 %; Eosinophils # (auto) 0.07 K/uL (0-0.50); Eosinophils % (auto) 0.4 %; Immature Granulocytes % (auto) 2.5 %; Lymphocytes # (auto) 5.99 K/uL (1.2-3.4); Lymphocytes % (auto) 30.3 %; Monocytes % (auto) 6.6 %; Neutrophils # (auto) 11.83 K/uL (1.4-6.5); Neutrophils % (auto) 59.9 %
[2022-09-26] MEDS: INSULIN ASPART PER UNIT SC SCH ×4 (08:24→21:17)
[2022-09-26] MEDS: LANTUS PER UNIT CHARGE SQ SCH ×2 (08:25→21:17)
[2022-09-26] MEDS: buprenorphine HCL 8 MG SUBL SL SCH ×3 (08:50→21:11)
[2022-09-26] MEDS: FERROUS SULFATE 325 MG TAB PO SCH (08:51)
[2022-09-26] MEDS: ASPIRIN 81 MG ECTAB PO SCH (08:51)
[2022-09-26] MEDS: FAMOTIDINE 20 MG TAB PO SCH (08:52)
[2022-09-26] MEDS: DULoxetine HCL 60 MG CAP PO SCH (08:52)
[2022-09-26] MEDS: FINASTERIDE 5 MG TAB PO SCH (08:52)
[2022-09-26] MEDS: FLUTICASONE PROPIONATE NA SPR 16 GM BTL NAE SCH (08:52)
[2022-09-26] MEDS: GABAPENTIN 800 MG TAB PO SCH ×3 (08:53→20:03)
[2022-09-26] MEDS: FUROSEMIDE 40 MG TAB PO SCH ×2 (08:53→17:21)
[2022-09-26] MEDS: FOLIC ACID 1 MG TAB PO SCH (08:53)
[2022-09-26] MEDS: MAGNESIUM OXIDE 400 MG TAB PO SCH (08:54)
[2022-09-26] MEDS: ISOSORBIDE DINITRATE 10 MG TAB PO SCH (08:54)
[2022-09-26] MEDS: ADVANCED PROBIOTIC 1250 MG CAPSULE PO SCH (08:54)
[2022-09-26] MEDS: NICOTINE 21 MG/24 HR TDSY TD SCH (08:55)
[2022-09-26] MEDS: POTASSIUM CHLORIDE CRTAB 20 MEQ TABCR PO SCH ×2 (08:56→20:01)
[2022-09-26] MEDS: UMECLIDINIUM/VILANTEROL 62.5/25MCG 7 PUFFS/INHALER INH SCH (08:57)
[2022-09-26] MEDS: TAMSULOSIN HCL 0.4 MG CAP PO SCH (08:57)
[2022-09-26] MEDS: SPIRONOLACTONE 25 MG TAB PO SCH (08:57)
[2022-09-26] MEDS ORDERED: methylPREDNISolone 40 MG in SYRINGE 0 ML IV SCH (09:00)
[2022-09-26] MEDS: CYCLOBENZAPRINE HCL 10 MG TAB PO PRN ×2 (09:08→21:11)
[2022-09-26] MEDS: LORazepam 0.5 MG TAB PO PRN ×2 (09:08→21:12)
[2022-09-26] MEDS: ACETAMINOPHEN 1,000 MG/100 ML VIAL IV PRN ×2 (09:09→19:51)
--- NOTE | 2022-09-26 10:40 | Hospitalist Progress Note ---
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 Acute on chronic respiratory failure with Hypoxia Acute COPD exacerbation H/O DARIA, COPD, Asthma Ongoing tobacco use disorder Recently completed course of Macrobid and steroid taper in outpatient setting -CXR:No change in appearance of the chest. Cardiomegaly with pulmonary vascular congestion. -Respiratory panel:Negative -Procalcitonin 0.24 Steroid taper to oral at 20 mg of prednisone. Continue supplemental oxygen to keep saturations 88 to 92% Continue pulmonary hygiene Status post 5 days doxycycline Needs outpatient sleep study Counseled to quit smoking Nicotine patch Acute on chronic diastolic CHF CXR as above Last ECHO:08/16: EF of 55 to 60%, mild concentric LVH, RV is mildly dilated, RV systolic function is normal and poorly visualized valvular anatomy without significant stenosis or regurgitation BUN uptrending; resume home Lasix 40 mg twice daily Daily weight, I/Os Oxygen support PRN Monitor renal function/electrolytes, volume status Continue fluid restriction Hypokalemia Hypophosphatemia Hypomagnesemia Replete electrolytes as needed Chronic indwelling Lloyd Catheter Urine culture negative Changed Lloyd catheter Constipation: continue bowel regimen H/O Pulmonary embolism INR initially supratherapeutic Continue on Coumadin DM II Last Hb A1C:8.8 Hold home agents Basal/bolus insulin per protocol BSG AC HS Chronic pain syndrome Right foot pain On Suboxone DVT Px: Coumadin resumed. Code status: FULL CODE Disposition PT OT evaluation done; referral sent for home health. DC on Wednesday. Admission and Anticipated Discharge Date Admission Date: September 19, 2022 Subjective Patient seen and examined at bedside. Is comfortably sitting up on the bed; not in any distress. He reports continued to wheezing; oxygen requirement similar to baseline. Urine output of 3.6 L in last 24 hours. Review of Systems Review of Systems: All systems reviewed & are unremarkable except as noted in Subjective Physical Exam Physical Exam: Physical Exam: Vitals signs as noted above General Appearance:Morbidly Obese, no apparent distress Head: normocephalic, Atraumatic Eyes: normal inspection, EOMI Neck: supple, Trachea midline Respiratory/Chest: Decrease breath sounds at bases, B/L expiratory wheezing; No accessory muscle use Cardiovascular: S1, S2, No murmur Abdomen/GI:Soft, Non tender, Bowel sounds present Extremities/Musculoskeletal:normal inspection, chronic venous stasis changes, nonpitting trace edema Neurologic/Psych:AAOX3, grossly no focal neurological deficits Skin: normal color, warm Results & Data Results & Data ([facility]) Vital Signs (Past 12 Hours) Vital Signs Temp Pulse Resp BP BP Pulse Ox O2 Del Method 09/26/22 08:08 36.5 C 70 18 147/53 H 94 Nasal Cannula 09/26/22 07:11 71 18 95 Nasal Cannula 09/26/22 03:19 36.3 C L 69 20 123/72 97 Nasal Cannula O2 Flow Rate 09/26/22 08:08 2 09/26/22 07:11 2 09/26/22 03:19 2 Laboratory Results Laboratory Results WBC 19.75 K/ul (4.8-10.8) H 09/26/22 06:00 RBC 5.05 M/uL (4.63-6.08) 09/26/22 06:00 Hgb 13.7 g/dl (14.0-18.0) L 09/26/22 06:00 Hct 43.7 % (40.1-51.0) 09/26/22 06:00 MCV 86.5 fL (80.0-100.0) 09/26/22 06:00 MCH 27.1 pg (25.0-34.0) 09/26/22 06:00 MCHC 31.4 g/dL (32.0-36.0) L 09/26/22 06:00 RDW Std Deviation 55.8 fL (36.4-46.3) H 09/26/22 06:00 RDW Coeff of Megan 17.9 % (11.5-14.5) H 09/26/22 06:00 Plt Count 247 K/uL (130-400) 09/26/22 06:00 MPV 10.3 fL (9.4-12.4) 09/26/22 06:00 Immature Gran % (Auto) 2.5 % 09/26/22 06:00 Neut % (Auto) 59.9 % 09/26/22 06:00 Lymph % (Auto) 30.3 % 09/26/22 06:00 [place] % (Auto) 6.6 % 09/26/22 06:00 Eos % (Auto) 0.4 % 09/26/22 06:00 Baso % (Auto) 0.3 % 09/26/22 06:00 Neut # (Auto) 11.83 K/uL (1.4-6.5) H 09/26/22 06:00 Lymph # (Auto) 5.99 K/uL (1.2-3.4) H 09/26/22 06:00 [place] # (Auto) 1.30 K/uL (0.24-0.82) H 09/26/22 06:00 Eos # (Auto) 0.07 K/uL (0-0.50) 09/26/22 06:00 Baso # (Auto) 0.06 K/uL (0-0.2) 09/26/22 06:00 Immature Gran # (Auto) 0.50 K/uL (0.00-0.02) H 09/26/22 06:00 PT 27.4 Seconds (9.0-12.0) H 09/26/22 06:00 INR 2.7 (0.9-1.1) H 09/26/22 06:00 APTT 30.5 Seconds (21.0-31.0) 09/19/22 13:15 PTT Ratio 1.1 09/19/22 13:15 Sodium 139 mmol/L (136-145) 09/26/22 06:00 Potassium 4.0 mmol/L (3.5-5.1) 09/26/22 06:00 Chloride 101 mmol/L (98-107) 09/26/22 06:00 Carbon Dioxide 36 mmol/L (21-32) H 09/26/22 06:00 Anion Gap 2 (3-11) L 09/26/22 06:00 BUN 30 mg/dl (6-23) H 09/26/22 06:00 Creatinine 0.84 mg/dl (0.6-1.4) 09/26/22 06:00 Est Cr Clr Drug Dosing 183.7 ml/min 09/26/22 06:00 Est GFR ( Amer) 116.7 ml/min 09/26/22 06:00 Est GFR (Non-Af Amer) 100.7 ml/min 09/26/22 06:00 BUN/Creatinine Ratio 35.7 (10-20) H 09/26/22 06:00 Glucose 169 mg/dl (70-99(Fasting)) H 09/26/22 06:00 POC Glucose 187 mg/dl (70-99) H 09/26/22 07:30 Calcium 9.7 mg/dl (8.5-10.1) 09/26/22 06:00 Phosphorus 3.4 mg/dl (2.5-4.9) 09/23/22 06:24 Magnesium 2.3 mg/dl (1.7-2.4) 09/26/22 06:00 Total Bilirubin 1.1 mg/dl (0.2-1.0) H 09/19/22 13:15 AST 18 U/L (13-39) 09/19/22 13:15 ALT 18 U/L (7-52) 09/19/22 13:15 Alkaline Phosphatase 126 U/L (34-104) H 09/19/22 13:15 Troponin I High Sens 9.4 pg/ml (0-20) 09/19/22 13:15 B-Natriuretic Peptide 75 pg/ml (0-100) 09/19/22 14:00 Total Protein 7.0 gm/dl (6.0-8.3) 09/19/22 13:15 Albumin 3.5 gm/dl (3.4-5.0) 09/19/22 13:15 Globulin 3.5 gm/dl (2.5-4.0) 09/19/22 13:15 Albumin/Globulin Ratio 1.0 (0.9-2) 09/19/22 13:15 Procalcitonin 0.24 ng/ml (0-0.5) 09/19/22 15:27 Urine Color Yellow 09/19/22 17:16 Urine Appearance Clear (Clear) 09/19/22 17:16 Urine pH 6.0 (4.5-7.5) 09/19/22 17:16 Ur Specific [place] 1.006 (1.000-1.030) 09/19/22 17:16 Urine Protein Negative (Negative) 09/19/22 17:16 Urine Glucose (UA) Negative (Negative) 09/19/22 17:16 Urine Ketones Negative (Negative) 09/19/22 17:16 Urine Blood 2+ (Negative) H 09/19/22 17:16 Urine Nitrite Negative (Negative) 09/19/22 17:16 Urine Bilirubin Negative (Negative) 09/19/22 17:16 Urine Urobilinogen Negative (Negative) 09/19/22 17:16 Ur Leukocyte Esterase 2+ (Negative) H 09/19/22 17:16 Urine WBC (Auto) 10-30 /hpf (0-5) H 09/19/22 17:16 Urine RBC (Auto) 0-4 /hpf (0-4) 09/19/22 17:16 U Hyaline Cast (Auto) 10-30 /lpf (0-5) H 09/19/22 17:16 U Epithel Cells (Auto) 20-30 /lpf (0-5) H 09/19/22 17:16 Urine Bacteria (Auto) Negative (Negative) 09/19/22 17:16 Adenovirus (PCR) Not Detected (NotDetected) 09/19/22 17:16 B. pertussis DNA (PCR) Not Detected (NotDetected) 09/19/22 17:16 B.parapertussis DNA PCR Not Detected (NotDetected) 09/19/22 17:16 C. pneumoniae DNA (PCR) Not Detected (NotDetected) 09/19/22 17:16 Coronavirus OC43 (PCR) Not Detected (NotDetected) 09/19/22 17:16 Coronavirus HKU1 (PCR) Not Detected (NotDetected) 09/19/22 17:16 Coronavirus 229E (PCR) Not Detected (NotDetected) 09/19/22 17:16 SARS-CoV-2 (PCR) Not Detected (NotDetected) 09/19/22 17:16 Coronavirus NL63 (PCR) Not Detected (NotDetected) 09/19/22 17:16 Human Metapneumovir PCR Not Detected (NotDetected) 09/19/22 17:16 Influenza Type A (PCR) Not Detected (NotDetected) 09/19/22 17:16 Influenza Type B (PCR) Not Detected (NotDetected) 09/19/22 17:16 M. pneumoniae (PCR) Not Detected (NotDetected) 09/19/22 17:16 Parainfluenza 1 (PCR) Not Detected (NotDetected) 09/19/22 17:16 Parainfluenza 2 (PCR) Not Detected (NotDetected) 09/19/22 17:16 Parainfluenza 3 (PCR) Not Detected (NotDetected) 09/19/22 17:16 Parainfluenza 4 (PCR) Not Detected (NotDetected) 09/19/22 17:16 RSV (RT-PCR) Negative (Neg) 09/19/22 14:05 RSV (PCR) Not Detected (NotDetected) 09/19/22 17:16 Entero/Rhino (PCR) Not Detected (NotDetected) 09/19/22 17:16 Impressions Chest X-Ray 09/22/22 07:00 XR chest 1V portable HISTORY: 52 years-old Male CHF acute shortness of breath COMPARISON: September 20, 2022 TECHNIQUE: AP view of the chest FINDINGS: Cardiac silhouette is enlarged. Pulmonary vascular congestion with interstitial coarsening. No pneumothorax. Trace pleural effusions with mild bibasilar densities are unchanged. Healed chronic mid left clavicular fracture deformity. Bones appear grossly intact. IMPRESSION: 1. Cardiomegaly with stable mild pulmonary edema. 2. Unchanged trace pleural effusions with bibasilar atelectasis. ACT 112: Negative or not required by law. The above report was generated using voice recognition software. It may contain grammatical, syntax or spelling errors. Electronically signed by: Shelton Apodaca M.D. 09/22/2022 8:35 AM
[2022-09-26] MEDS: DOCUSATE SODIUM 100 MG CAP PO SCH ×2 (10:51→20:01)
[2022-09-26] MEDS: predniSONE 20 MG TAB PO SCH (10:51)
[2022-09-26] MEDS: BUDESONIDE 0.5 MG/2 ML VIAL (PULMICORT) NEB SCH ×2 (10:56→20:18)
[2022-09-26] MEDS: FORMOTEROL 20 MCG/2 ML VIAL NEB SCH ×2 (10:56→20:18)
[2022-09-26] MEDS ORDERED: PROMETHAZINE HCL 6.25 MG in SODIUM CHLORIDE 0.9% 50 ML IV ONE (13:00)
[2022-09-26] MEDS: WARFARIN SOD 7.5 MG TAB PO SCH (17:22)
[2022-09-26] MEDS: ATORVASTATIN 40 MG TAB PO SCH (20:02)
[2022-09-27] MEDS: guaiFENesin/DEXTROM SYRUP 100MG/10MG 5ML UDC PO PRN ×4 (01:12→22:31)
[2022-09-27] MEDS: SODIUM CHLOR 7% 4 ML NEB NEB SCH ×3 (02:17→20:04)
[2022-09-27] MEDS: ALBUT/IPRATROP 3MG/0.5MG NEB 3 ML VIAL NEB SCH ×4 (03:38→20:07)
[2022-09-27] MEDS: ACETAMINOPHEN 1,000 MG/100 ML VIAL IV PRN ×3 (05:16→22:14)
[2022-09-27] MEDS: PANTOprazole 40 MG TAB PO SCH (05:17)
[2022-09-27 07:08] LABS: Hematocrit (blood only) 42.2 % (40.1-51.0); Hemoglobin 13.3 g/dl (14.0-18.0); Mean Corpuscular Hemoglobin 27.4 pg (25.0-34.0); Mean Corpuscular Hgb Conc 31.5 g/dL (32.0-36.0); Mean Platelet Volume 10.2 fL (9.4-12.4); Platelet Count 221 K/uL (130-400); RDW Standard Deviation 56.6 fL (36.4-46.3); Red Blood Count 4.85 M/uL (4.63-6.08); White Blood Count 16.76 K/ul (4.8-10.8)
[2022-09-27] MEDS: FORMOTEROL 20 MCG/2 ML VIAL NEB SCH ×2 (07:19→20:04)
[2022-09-27] MEDS: BUDESONIDE 0.5 MG/2 ML VIAL (PULMICORT) NEB SCH ×2 (07:19→20:04)
[2022-09-27 07:27] LABS: Calcium 9.1 mg/dl (8.5-10.1); Creatinine Clr Calc Pharmacy 179.1 ml/min; Est GFR (Non-African American) 99.2 ml/min; Magnesium 2.4 mg/dl (1.7-2.4); Potassium 3.8 mmol/L (3.5-5.1)
[2022-09-27 07:29] LABS: INR 3.5 (0.9-1.1); Prothrombin Time 34.5 Seconds (9.0-12.0)
[2022-09-27 08:02] LABS: Basophils # (auto) 0.04 K/uL (0-0.2); Basophils % (auto) 0.2 %; Eosinophils # (auto) 0.18 K/uL (0-0.50); Eosinophils % (auto) 1.1 %; Immature Granulocytes # (auto) 0.23 K/uL (0.00-0.02); Immature Granulocytes % (auto) 1.4 %; Lymphocytes # (auto) 5.36 K/uL (1.2-3.4); Monocytes # (auto) 1.07 K/uL (0.24-0.82); Monocytes % (auto) 6.4 %; Neutrophils # (auto) 9.88 K/uL (1.4-6.5); Neutrophils % (auto) 58.9 %
[2022-09-27] MEDS: INSULIN ASPART PER UNIT SC SCH ×4 (08:32→21:28)
[2022-09-27] MEDS: LANTUS PER UNIT CHARGE SQ SCH ×2 (08:33→21:28)
[2022-09-27] MEDS: CYCLOBENZAPRINE HCL 10 MG TAB PO PRN ×2 (09:09→21:38)
[2022-09-27] MEDS: LORazepam 0.5 MG TAB PO PRN ×2 (09:09→21:37)
[2022-09-27] MEDS: buprenorphine HCL 8 MG SUBL SL SCH ×3 (09:09→21:34)
[2022-09-27] MEDS: GABAPENTIN 800 MG TAB PO SCH ×3 (09:10→21:36)
[2022-09-27] MEDS: TAMSULOSIN HCL 0.4 MG CAP PO SCH (09:10)
[2022-09-27] MEDS: FINASTERIDE 5 MG TAB PO SCH (09:10)
[2022-09-27] MEDS: predniSONE 20 MG TAB PO SCH (09:10)
[2022-09-27] MEDS: ASPIRIN 81 MG ECTAB PO SCH (09:11)
[2022-09-27] MEDS: FERROUS SULFATE 325 MG TAB PO SCH (09:11)
[2022-09-27] MEDS: MAGNESIUM OXIDE 400 MG TAB PO SCH (09:11)
[2022-09-27] MEDS: DULoxetine HCL 60 MG CAP PO SCH (09:12)
[2022-09-27] MEDS: FAMOTIDINE 20 MG TAB PO SCH (09:12)
[2022-09-27] MEDS: SPIRONOLACTONE 25 MG TAB PO SCH (09:12)
[2022-09-27] MEDS: ISOSORBIDE DINITRATE 10 MG TAB PO SCH (09:12)
[2022-09-27] MEDS: FOLIC ACID 1 MG TAB PO SCH (09:12)
[2022-09-27] MEDS: ADVANCED PROBIOTIC 1250 MG CAPSULE PO SCH (09:12)
[2022-09-27] MEDS: FUROSEMIDE 40 MG TAB PO SCH ×2 (09:13→17:26)
[2022-09-27] MEDS: DOCUSATE SODIUM 100 MG CAP PO SCH ×2 (09:13→21:37)
[2022-09-27] MEDS: FLUTICASONE PROPIONATE NA SPR 16 GM BTL NAE SCH (09:13)
[2022-09-27] MEDS: NICOTINE 21 MG/24 HR TDSY TD SCH (09:13)
[2022-09-27] MEDS: POTASSIUM CHLORIDE CRTAB 20 MEQ TABCR PO SCH ×2 (09:18→21:37)
--- NOTE | 2022-09-27 11:36 | Hospitalist Progress Note ---
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 Acute on chronic respiratory failure with Hypoxia Acute COPD exacerbation H/O DARIA, COPD, Asthma Ongoing tobacco use disorder Recently completed course of Macrobid and steroid taper in outpatient setting -CXR:No change in appearance of the chest. Cardiomegaly with pulmonary vascular congestion. -Respiratory panel:Negative -Procalcitonin 0.24 Steroid taper to oral at 20 mg of prednisone. Will decrease to 10 mg once daily tomorrow. Continue supplemental oxygen to keep saturations 88 to 92% Continue pulmonary hygiene Status post 5 days doxycycline Needs outpatient sleep study Counseled to quit smoking Nicotine patch Acute on chronic diastolic CHF CXR as above Last ECHO:08/16: EF of 55 to 60%, mild concentric LVH, RV is mildly dilated, RV systolic function is normal and poorly visualized valvular anatomy without significant stenosis or regurgitation BUN uptrending; resume home Lasix 40 mg twice daily Daily weight, I/Os Oxygen support PRN Monitor renal function/electrolytes, volume status Continue fluid restriction Hypokalemia Hypophosphatemia Hypomagnesemia Replete electrolytes as needed Chronic indwelling Lloyd Catheter Urine culture negative Changed Lloyd catheter Constipation: continue bowel regimen H/O Pulmonary embolism Continue on Coumadin DM II Last Hb A1C:8.8 Hold home agents Basal/bolus insulin per protocol BSG AC HS Chronic pain syndrome Right foot pain On Suboxone DVT Px: Coumadin resumed. Code status: FULL CODE Disposition PT OT evaluation done; referral sent for home health. DC on Wednesday. Admission and Anticipated Discharge Date Admission Date: September 19, 2022 Subjective Patient seen and examined at bedside. He reports continued weakness and deconditioning. He is currently at 2 L of oxygen by nasal cannula. Review of Systems Review of Systems: All systems reviewed & are unremarkable except as noted in Subjective Physical Exam Physical Exam: Physical Exam: Vitals signs as noted above General Appearance:Morbidly Obese, no apparent distress Head: normocephalic, Atraumatic Eyes: normal inspection, EOMI Neck: supple, Trachea midline Respiratory/Chest: Decrease breath sounds at bases, B/L expiratory wheezing; No accessory muscle use Cardiovascular: S1, S2, No murmur Abdomen/GI:Soft, Non tender, Bowel sounds present Extremities/Musculoskeletal:normal inspection, chronic venous stasis changes, nonpitting trace edema Neurologic/Psych:AAOX3, grossly no focal neurological deficits Skin: normal color, warm Results & Data Results & Data ([facility]) Vital Signs (Past 12 Hours) Vital Signs Temp Pulse Resp BP Pulse Ox O2 Del Method O2 Flow Rate 09/27/22 10:54 94 H 18 96 Room Air 09/27/22 08:00 Nasal Cannula 09/27/22 08:21 36.8 C 86 20 144/71 H 96 Nasal Cannula 2 09/27/22 07:19 64 18 96 Nasal Cannula 4 09/27/22 03:25 36.3 C L 77 18 141/67 H 95 Nasal Cannula 4.0 09/27/22 03:41 76 18 94 Nasal Cannula 4 Laboratory Results Laboratory Results WBC 16.76 K/ul (4.8-10.8) H 09/27/22 05:58 RBC 4.85 M/uL (4.63-6.08) 09/27/22 05:58 Hgb 13.3 g/dl (14.0-18.0) L 09/27/22 05:58 Hct 42.2 % (40.1-51.0) 09/27/22 05:58 MCV 87.0 fL (80.0-100.0) 09/27/22 05:58 MCH 27.4 pg (25.0-34.0) 09/27/22 05:58 MCHC 31.5 g/dL (32.0-36.0) L 09/27/22 05:58 RDW Std Deviation 56.6 fL (36.4-46.3) H 09/27/22 05:58 RDW Coeff of Megan 18.0 % (11.5-14.5) H 09/27/22 05:58 Plt Count 221 K/uL (130-400) 09/27/22 05:58 MPV 10.2 fL (9.4-12.4) 09/27/22 05:58 Immature Gran % (Auto) 1.4 % 09/27/22 05:58 Neut % (Auto) 58.9 % 09/27/22 05:58 Lymph % (Auto) 32.0 % 09/27/22 05:58 [place] % (Auto) 6.4 % 09/27/22 05:58 Eos % (Auto) 1.1 % 09/27/22 05:58 Baso % (Auto) 0.2 % 09/27/22 05:58 Neut # (Auto) 9.88 K/uL (1.4-6.5) H 09/27/22 05:58 Lymph # (Auto) 5.36 K/uL (1.2-3.4) H 09/27/22 05:58 [place] # (Auto) 1.07 K/uL (0.24-0.82) H 09/27/22 05:58 Eos # (Auto) 0.18 K/uL (0-0.50) 09/27/22 05:58 Baso # (Auto) 0.04 K/uL (0-0.2) 09/27/22 05:58 Immature Gran # (Auto) 0.23 K/uL (0.00-0.02) H 09/27/22 05:58 PT 34.5 Seconds (9.0-12.0) H 09/27/22 05:58 INR 3.5 (0.9-1.1) H 09/27/22 05:58 APTT 30.5 Seconds (21.0-31.0) 09/19/22 13:15 PTT Ratio 1.1 09/19/22 13:15 Sodium 139 mmol/L (136-145) 09/27/22 05:58 Potassium 3.8 mmol/L (3.5-5.1) 09/27/22 05:58 Chloride 99 mmol/L (98-107) 09/27/22 05:58 Carbon Dioxide 39 mmol/L (21-32) H 09/27/22 05:58 Anion Gap 1 (3-11) L 09/27/22 05:58 BUN 27 mg/dl (6-23) H 09/27/22 05:58 Creatinine 0.87 mg/dl (0.6-1.4) 09/27/22 05:58 Est Cr Clr Drug Dosing 179.1 ml/min 09/27/22 05:58 Est GFR ( Amer) 115.0 ml/min 09/27/22 05:58 Est GFR (Non-Af Amer) 99.2 ml/min 09/27/22 05:58 BUN/Creatinine Ratio 31.0 (10-20) H 09/27/22 05:58 Glucose 116 mg/dl (70-99(Fasting)) H 09/27/22 05:58 POC Glucose 98 mg/dl (70-99) 09/27/22 11:22 Calcium 9.1 mg/dl (8.5-10.1) 09/27/22 05:58 Phosphorus 3.4 mg/dl (2.5-4.9) 09/23/22 06:24 Magnesium 2.4 mg/dl (1.7-2.4) 09/27/22 05:58 Total Bilirubin 1.1 mg/dl (0.2-1.0) H 09/19/22 13:15 AST 18 U/L (13-39) 09/19/22 13:15 ALT 18 U/L (7-52) 09/19/22 13:15 Alkaline Phosphatase 126 U/L (34-104) H 09/19/22 13:15 Troponin I High Sens 9.4 pg/ml (0-20) 09/19/22 13:15 B-Natriuretic Peptide 75 pg/ml (0-100) 09/19/22 14:00 Total Protein 7.0 gm/dl (6.0-8.3) 09/19/22 13:15 Albumin 3.5 gm/dl (3.4-5.0) 09/19/22 13:15 Globulin 3.5 gm/dl (2.5-4.0) 09/19/22 13:15 Albumin/Globulin Ratio 1.0 (0.9-2) 09/19/22 13:15 Procalcitonin 0.24 ng/ml (0-0.5) 09/19/22 15:27 Urine Color Yellow 09/19/22 17:16 Urine Appearance Clear (Clear) 09/19/22 17:16 Urine pH 6.0 (4.5-7.5) 09/19/22 17:16 Ur Specific [place] 1.006 (1.000-1.030) 09/19/22 17:16 Urine Protein Negative (Negative) 09/19/22 17:16 Urine Glucose (UA) Negative (Negative) 09/19/22 17:16 Urine Ketones Negative (Negative) 09/19/22 17:16 Urine Blood 2+ (Negative) H 09/19/22 17:16 Urine Nitrite Negative (Negative) 09/19/22 17:16 Urine Bilirubin Negative (Negative) 09/19/22 17:16 Urine Urobilinogen Negative (Negative) 09/19/22 17:16 Ur Leukocyte Esterase 2+ (Negative) H 09/19/22 17:16 Urine WBC (Auto) 10-30 /hpf (0-5) H 09/19/22 17:16 Urine RBC (Auto) 0-4 /hpf (0-4) 09/19/22 17:16 U Hyaline Cast (Auto) 10-30 /lpf (0-5) H 09/19/22 17:16 U Epithel Cells (Auto) 20-30 /lpf (0-5) H 09/19/22 17:16 Urine Bacteria (Auto) Negative (Negative) 09/19/22 17:16 Adenovirus (PCR) Not Detected (NotDetected) 09/19/22 17:16 B. pertussis DNA (PCR) Not Detected (NotDetected) 09/19/22 17:16 B.parapertussis DNA PCR Not Detected (NotDetected) 09/19/22 17:16 C. pneumoniae DNA (PCR) Not Detected (NotDetected) 09/19/22 17:16 Coronavirus OC43 (PCR) Not Detected (NotDetected) 09/19/22 17:16 Coronavirus HKU1 (PCR) Not Detected (NotDetected) 09/19/22 17:16 Coronavirus 229E (PCR) Not Detected (NotDetected) 09/19/22 17:16 SARS-CoV-2 (PCR) Not Detected (NotDetected) 09/19/22 17:16 Coronavirus NL63 (PCR) Not Detected (NotDetected) 09/19/22 17:16 Human Metapneumovir PCR Not Detected (NotDetected) 09/19/22 17:16 Influenza Type A (PCR) Not Detected (NotDetected) 09/19/22 17:16 Influenza Type B (PCR) Not Detected (NotDetected) 09/19/22 17:16 M. pneumoniae (PCR) Not Detected (NotDetected) 09/19/22 17:16 Parainfluenza 1 (PCR) Not Detected (NotDetected) 09/19/22 17:16 Parainfluenza 2 (PCR) Not Detected (NotDetected) 09/19/22 17:16 Parainfluenza 3 (PCR) Not Detected (NotDetected) 09/19/22 17:16 Parainfluenza 4 (PCR) Not Detected (NotDetected) 09/19/22 17:16 RSV (RT-PCR) Negative (Neg) 09/19/22 14:05 RSV (PCR) Not Detected (NotDetected) 09/19/22 17:16 Entero/Rhino (PCR) Not Detected (NotDetected) 09/19/22 17:16 Impressions Chest X-Ray 09/22/22 07:00 XR chest 1V portable HISTORY: 52 years-old Male CHF acute shortness of breath COMPARISON: September 20, 2022 TECHNIQUE: AP view of the chest FINDINGS: Cardiac silhouette is enlarged. Pulmonary vascular congestion with interstitial coarsening. No pneumothorax. Trace pleural effusions with mild bibasilar densities are unchanged. Healed chronic mid left clavicular fracture deformity. Bones appear grossly intact. IMPRESSION: 1. Cardiomegaly with stable mild pulmonary edema. 2. Unchanged trace pleural effusions with bibasilar atelectasis. ACT 112: Negative or not required by law. The above report was generated using voice recognition software. It may contain grammatical, syntax or spelling errors. Electronically signed by: Shelton Apodaca M.D. 09/22/2022 8:35 AM
[2022-09-27] MEDS ORDERED: COUGH DROP (SUGAR FREE) LOZ 24 LOZ/1 BOX BUCCAL ONE (16:23)
[2022-09-27] MEDS: ATORVASTATIN 40 MG TAB PO SCH (21:38)
[2022-09-27] MEDS: PROMETHAZINE HCL 12.5 MG in SODIUM CHLORIDE 0.9% 50 ML IV PRN (21:52)
[2022-09-28] MEDS: PROMETHAZINE HCL 12.5 MG in SODIUM CHLORIDE 0.9% 50 ML IV PRN ×2 (04:00→20:30)
[2022-09-28] MEDS: guaiFENesin/DEXTROM SYRUP 100MG/10MG 5ML UDC PO PRN ×3 (04:30→22:25)
[2022-09-28] MEDS: LORazepam 0.5 MG TAB PO PRN ×3 (05:31→21:14)
[2022-09-28] MEDS: CYCLOBENZAPRINE HCL 10 MG TAB PO PRN ×2 (05:32→20:22)
[2022-09-28] MEDS: PANTOprazole 40 MG TAB PO SCH (05:32)
[2022-09-28] MEDS: INSULIN ASPART PER UNIT SC SCH ×5 (05:45→21:09)
[2022-09-28] MEDS: ACETAMINOPHEN 1,000 MG/100 ML VIAL IV PRN (06:30)
[2022-09-28] MEDS: FORMOTEROL 20 MCG/2 ML VIAL NEB SCH ×2 (07:08→19:34)
[2022-09-28] MEDS: ALBUT/IPRATROP 3MG/0.5MG NEB 3 ML VIAL NEB SCH ×4 (07:08→19:33)
[2022-09-28] MEDS: BUDESONIDE 0.5 MG/2 ML VIAL (PULMICORT) NEB SCH ×2 (07:08→19:34)
[2022-09-28] MEDS: SODIUM CHLOR 7% 4 ML NEB NEB SCH ×3 (07:08→20:02)
[2022-09-28 07:32] LABS: Albumin Globulin Ratio 1.1 (0.9-2); Albumin Level 3.3 gm/dl (3.4-5.0); BUN Creatinine Ratio 30.9 (10-20); Bilirubin,Total 0.5 mg/dl (0.2-1.0); Calcium 9.1 mg/dl (8.5-10.1); Creatinine Clr Calc Pharmacy 192.4 ml/min; Est GFR (African American) 118.4 ml/min; Est GFR (Non-African American) 102.2 ml/min; Globulin 2.9 gm/dl (2.5-4.0); Potassium 4.2 mmol/L (3.5-5.1); Total Protein 6.2 gm/dl (6.0-8.3)
[2022-09-28 07:33] LABS: INR 2.6 (0.9-1.1); Prothrombin Time 26.1 Seconds (9.0-12.0)
[2022-09-28] MEDS: LANTUS PER UNIT CHARGE SQ SCH ×2 (08:15→21:09)
[2022-09-28] MEDS: TAMSULOSIN HCL 0.4 MG CAP PO SCH (08:53)
[2022-09-28] MEDS: DOCUSATE SODIUM 100 MG CAP PO SCH ×2 (08:53→20:22)
[2022-09-28] MEDS: MAGNESIUM OXIDE 400 MG TAB PO SCH (08:53)
[2022-09-28] MEDS: FLUTICASONE PROPIONATE NA SPR 16 GM BTL NAE SCH (08:53)
[2022-09-28] MEDS: ADVANCED PROBIOTIC 1250 MG CAPSULE PO SCH (08:54)
[2022-09-28] MEDS: ISOSORBIDE DINITRATE 10 MG TAB PO SCH (08:54)
[2022-09-28] MEDS: FOLIC ACID 1 MG TAB PO SCH (08:54)
[2022-09-28] MEDS: FINASTERIDE 5 MG TAB PO SCH (08:54)
[2022-09-28] MEDS: SENNA 8.6 MG TAB PO PRN (08:54)
[2022-09-28] MEDS: SPIRONOLACTONE 25 MG TAB PO SCH (08:54)
[2022-09-28] MEDS: predniSONE 20 MG TAB PO SCH (08:54)
[2022-09-28] MEDS: FERROUS SULFATE 325 MG TAB PO SCH (08:54)
[2022-09-28] MEDS: GABAPENTIN 800 MG TAB PO SCH ×3 (08:55→20:24)
[2022-09-28] MEDS: POTASSIUM CHLORIDE CRTAB 20 MEQ TABCR PO SCH ×2 (08:55→20:22)
[2022-09-28] MEDS: ASPIRIN 81 MG ECTAB PO SCH (08:55)
[2022-09-28] MEDS: NICOTINE 21 MG/24 HR TDSY TD SCH (08:55)
[2022-09-28] MEDS: DULoxetine HCL 60 MG CAP PO SCH (08:55)
[2022-09-28] MEDS: FUROSEMIDE 40 MG TAB PO SCH ×2 (08:55→17:46)
[2022-09-28] MEDS: FAMOTIDINE 20 MG TAB PO SCH (08:55)
[2022-09-28] MEDS: buprenorphine HCL 8 MG SUBL SL SCH ×3 (09:02→20:22)
[2022-09-28] MEDS ORDERED: ACETAMINOPHEN 1,000 MG/100 ML VIAL IV PRN (12:51)
--- NOTE | 2022-09-28 12:54 | Hospitalist Progress Note ---
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 Acute on chronic respiratory failure with Hypoxia Acute COPD exacerbation H/O DARIA, COPD, Asthma Ongoing tobacco use disorder Recently completed course of Macrobid and steroid taper in outpatient setting -CXR:No change in appearance of the chest. Cardiomegaly with pulmonary vascular congestion. -Respiratory panel:Negative -Procalcitonin 0.24 On 10 mg once daily tomorrow. Continue supplemental oxygen to keep saturations 88 to 92% Continue pulmonary hygiene Status post 5 days doxycycline Needs outpatient sleep study Counseled to quit smoking Nicotine patch Acute on chronic diastolic CHF CXR as above Last ECHO:08/16: EF of 55 to 60%, mild concentric LVH, RV is mildly dilated, RV systolic function is normal and poorly visualized valvular anatomy without significant stenosis or regurgitation BUN uptrending; resume home Lasix 40 mg twice daily Daily weight, I/Os Oxygen support PRN Monitor renal function/electrolytes, volume status Continue fluid restriction Hypokalemia Hypophosphatemia Hypomagnesemia Replete electrolytes as needed Chronic indwelling Lloyd Catheter Urine culture negative Changed Lloyd catheter Constipation: continue bowel regimen H/O Pulmonary embolism Continue on Coumadin DM II Last Hb A1C:8.8 Hold home agents Basal/bolus insulin per protocol BSG AC HS Chronic pain syndrome Right foot pain On Suboxone DVT Px: Coumadin resumed. Code status: FULL CODE Disposition PT OT evaluation done; referral sent for home health. DC likely tomorrow AM. Admission and Anticipated Discharge Date Admission Date: September 19, 2022 Subjective Patient sitting on the chair at the side of the bed; not in any distress. Reports that shortness of breath has improved. Continues to feel deconditioned and weak . Review of Systems Review of Systems: All systems reviewed & are unremarkable except as noted in Subjective Physical Exam Physical Exam: Physical Exam: Vitals signs as noted above General Appearance:Morbidly Obese, no apparent distress Head: normocephalic, Atraumatic Eyes: normal inspection, EOMI Neck: supple, Trachea midline Respiratory/Chest: Decrease breath sounds at bases, B/L expiratory wheezing; improvement from yesterday. No accessory muscle use Cardiovascular: S1, S2, No murmur Abdomen/GI:Soft, Non tender, Bowel sounds present Extremities/Musculoskeletal:normal inspection, chronic venous stasis changes, nonpitting trace edema Neurologic/Psych:AAOX3, grossly no focal neurological deficits Skin: normal color, warm Results & Data Results & Data ([facility]) Vital Signs (Past 12 Hours) Vital Signs Temp Pulse Pulse Resp BP Pulse Ox O2 Del Method 09/28/22 11:07 105 H 20 93 Room Air 09/28/22 10:04 36.9 C 105 H 20 129/61 91 Nasal Cannula 09/28/22 08:00 85 09/28/22 08:00 Nasal Cannula 09/28/22 07:13 36.5 C 93 H 20 128/63 93 Nasal Cannula 09/28/22 07:08 90 18 97 Nasal Cannula 09/28/22 03:32 36.6 C 89 18 129/68 96 Nasal Cannula O2 Flow Rate 09/28/22 11:07 09/28/22 10:04 4 09/28/22 08:00 09/28/22 08:00 2 09/28/22 07:13 4 09/28/22 07:08 4 09/28/22 03:32 2 Laboratory Results Laboratory Results WBC 16.76 K/ul (4.8-10.8) H 09/27/22 05:58 RBC 4.85 M/uL (4.63-6.08) 09/27/22 05:58 Hgb 13.3 g/dl (14.0-18.0) L 09/27/22 05:58 Hct 42.2 % (40.1-51.0) 09/27/22 05:58 MCV 87.0 fL (80.0-100.0) 09/27/22 05:58 MCH 27.4 pg (25.0-34.0) 09/27/22 05:58 MCHC 31.5 g/dL (32.0-36.0) L 09/27/22 05:58 RDW Std Deviation 56.6 fL (36.4-46.3) H 09/27/22 05:58 RDW Coeff of Megan 18.0 % (11.5-14.5) H 09/27/22 05:58 Plt Count 221 K/uL (130-400) 09/27/22 05:58 MPV 10.2 fL (9.4-12.4) 09/27/22 05:58 Immature Gran % (Auto) 1.4 % 09/27/22 05:58 Neut % (Auto) 58.9 % 09/27/22 05:58 Lymph % (Auto) 32.0 % 09/27/22 05:58 [place] % (Auto) 6.4 % 09/27/22 05:58 Eos % (Auto) 1.1 % 09/27/22 05:58 Baso % (Auto) 0.2 % 09/27/22 05:58 Neut # (Auto) 9.88 K/uL (1.4-6.5) H 09/27/22 05:58 Lymph # (Auto) 5.36 K/uL (1.2-3.4) H 09/27/22 05:58 [place] # (Auto) 1.07 K/uL (0.24-0.82) H 09/27/22 05:58 Eos # (Auto) 0.18 K/uL (0-0.50) 09/27/22 05:58 Baso # (Auto) 0.04 K/uL (0-0.2) 09/27/22 05:58 Immature Gran # (Auto) 0.23 K/uL (0.00-0.02) H 09/27/22 05:58 Blood Smear Review 09/26/22 06:00 PT 26.1 Seconds (9.0-12.0) H 09/28/22 06:19 INR 2.6 (0.9-1.1) H 09/28/22 06:19 APTT 30.5 Seconds (21.0-31.0) 09/19/22 13:15 PTT Ratio 1.1 09/19/22 13:15 Sodium 139 mmol/L (136-145) 09/28/22 06:19 Potassium 4.2 mmol/L (3.5-5.1) 09/28/22 06:19 Chloride 101 mmol/L (98-107) 09/28/22 06:19 Carbon Dioxide 34 mmol/L (21-32) H 09/28/22 06:19 Anion Gap 4 (3-11) 09/28/22 06:19 BUN 25 mg/dl (6-23) H 09/28/22 06:19 Creatinine 0.81 mg/dl (0.6-1.4) 09/28/22 06:19 Est Cr Clr Drug Dosing 192.4 ml/min 09/28/22 06:19 Est GFR ( Amer) 118.4 ml/min 09/28/22 06:19 Est GFR (Non-Af Amer) 102.2 ml/min 09/28/22 06:19 BUN/Creatinine Ratio 30.9 (10-20) H 09/28/22 06:19 Glucose 129 mg/dl (70-99(Fasting)) H 09/28/22 06:19 POC Glucose 85 mg/dl (70-99) 09/28/22 11:20 Calcium 9.1 mg/dl (8.5-10.1) 09/28/22 06:19 Phosphorus 3.4 mg/dl (2.5-4.9) 09/23/22 06:24 Magnesium 2.4 mg/dl (1.7-2.4) 09/27/22 05:58 Total Bilirubin 0.5 mg/dl (0.2-1.0) 09/28/22 06:19 AST 11 U/L (13-39) L 09/28/22 06:19 ALT 16 U/L (7-52) 09/28/22 06:19 Alkaline Phosphatase 68 U/L (34-104) 09/28/22 06:19 Troponin I High Sens 9.4 pg/ml (0-20) 09/19/22 13:15 B-Natriuretic Peptide 75 pg/ml (0-100) 09/19/22 14:00 Total Protein 6.2 gm/dl (6.0-8.3) 09/28/22 06:19 Albumin 3.3 gm/dl (3.4-5.0) L 09/28/22 06:19 Globulin 2.9 gm/dl (2.5-4.0) 09/28/22 06:19 Albumin/Globulin Ratio 1.1 (0.9-2) 09/28/22 06:19 Procalcitonin 0.24 ng/ml (0-0.5) 09/19/22 15:27 Urine Color Yellow 09/19/22 17:16 Urine Appearance Clear (Clear) 09/19/22 17:16 Urine pH 6.0 (4.5-7.5) 09/19/22 17:16 Ur Specific [place] 1.006 (1.000-1.030) 09/19/22 17:16 Urine Protein Negative (Negative) 09/19/22 17:16 Urine Glucose (UA) Negative (Negative) 09/19/22 17:16 Urine Ketones Negative (Negative) 09/19/22 17:16 Urine Blood 2+ (Negative) H 09/19/22 17:16 Urine Nitrite Negative (Negative) 09/19/22 17:16 Urine Bilirubin Negative (Negative) 09/19/22 17:16 Urine Urobilinogen Negative (Negative) 09/19/22 17:16 Ur Leukocyte Esterase 2+ (Negative) H 09/19/22 17:16 Urine WBC (Auto) 10-30 /hpf (0-5) H 09/19/22 17:16 Urine RBC (Auto) 0-4 /hpf (0-4) 09/19/22 17:16 U Hyaline Cast (Auto) 10-30 /lpf (0-5) H 09/19/22 17:16 U Epithel Cells (Auto) 20-30 /lpf (0-5) H 09/19/22 17:16 Urine Bacteria (Auto) Negative (Negative) 09/19/22 17:16 Adenovirus (PCR) Not Detected (NotDetected) 09/19/22 17:16 B. pertussis DNA (PCR) Not Detected (NotDetected) 09/19/22 17:16 B.parapertussis DNA PCR Not Detected (NotDetected) 09/19/22 17:16 C. pneumoniae DNA (PCR) Not Detected (NotDetected) 09/19/22 17:16 Coronavirus OC43 (PCR) Not Detected (NotDetected) 09/19/22 17:16 Coronavirus HKU1 (PCR) Not Detected (NotDetected) 09/19/22 17:16 Coronavirus 229E (PCR) Not Detected (NotDetected) 09/19/22 17:16 SARS-CoV-2 (PCR) Not Detected (NotDetected) 09/19/22 17:16 Coronavirus NL63 (PCR) Not Detected (NotDetected) 09/19/22 17:16 Human Metapneumovir PCR Not Detected (NotDetected) 09/19/22 17:16 Influenza Type A (PCR) Not Detected (NotDetected) 09/19/22 17:16 Influenza Type B (PCR) Not Detected (NotDetected) 09/19/22 17:16 M. pneumoniae (PCR) Not Detected (NotDetected) 09/19/22 17:16 Parainfluenza 1 (PCR) Not Detected (NotDetected) 09/19/22 17:16 Parainfluenza 2 (PCR) Not Detected (NotDetected) 09/19/22 17:16 Parainfluenza 3 (PCR) Not Detected (NotDetected) 09/19/22 17:16 Parainfluenza 4 (PCR) Not Detected (NotDetected) 09/19/22 17:16 RSV (RT-PCR) Negative (Neg) 09/19/22 14:05 RSV (PCR) Not Detected (NotDetected) 09/19/22 17:16 Entero/Rhino (PCR) Not Detected (NotDetected) 09/19/22 17:16 Impressions Chest X-Ray 09/22/22 07:00 XR chest 1V portable HISTORY: 52 years-old Male CHF acute shortness of breath COMPARISON: September 20, 2022 TECHNIQUE: AP view of the chest FINDINGS: Cardiac silhouette is enlarged. Pulmonary vascular congestion with interstitial coarsening. No pneumothorax. Trace pleural effusions with mild bibasilar densities are unchanged. Healed chronic mid left clavicular fracture deformity. Bones appear grossly intact. IMPRESSION: 1. Cardiomegaly with stable mild pulmonary edema. 2. Unchanged trace pleural effusions with bibasilar atelectasis. ACT 112: Negative or not required by law. The above report was generated using voice recognition software. It may contain grammatical, syntax or spelling errors. Electronically signed by: Shelton Apodaca M.D. 09/22/2022 8:35 AM
[2022-09-28] MEDS ORDERED: HYDROmorphone INJ 0.5 MG/0.5 ML SYR IV STA ×2 (20:17→23:29)
[2022-09-28] MEDS: ATORVASTATIN 40 MG TAB PO SCH (20:25)
[2022-09-28] MEDS ORDERED: COUGH DROP (SUGAR FREE) LOZ 24 LOZ/1 BOX BUCCAL PRN (22:34)
[2022-09-28] MEDS ORDERED: COUGH DROP (SUGAR FREE) LOZ 24 LOZ/1 BOX BUCCAL ONE (22:40)
[2022-09-29] MEDS: CYCLOBENZAPRINE HCL 10 MG TAB PO PRN (05:21)
[2022-09-29] MEDS: guaiFENesin/DEXTROM SYRUP 100MG/10MG 5ML UDC PO PRN (05:21)
[2022-09-29] MEDS: LORazepam 0.5 MG TAB PO PRN (05:21)
[2022-09-29] MEDS: PANTOprazole 40 MG TAB PO SCH (05:36)
[2022-09-29] MEDS: INSULIN ASPART PER UNIT SC SCH ×2 (05:51→08:42)
[2022-09-29] MEDS: DOCUSATE SODIUM 100 MG CAP PO SCH (06:14)
[2022-09-29] MEDS: FERROUS SULFATE 325 MG TAB PO SCH (06:14)
[2022-09-29] MEDS: ASPIRIN 81 MG ECTAB PO SCH (06:14)
[2022-09-29] MEDS: GABAPENTIN 800 MG TAB PO SCH (06:15)
[2022-09-29] MEDS: POTASSIUM CHLORIDE CRTAB 20 MEQ TABCR PO SCH (06:15)
[2022-09-29] MEDS: FINASTERIDE 5 MG TAB PO SCH (06:16)
[2022-09-29] MEDS: FOLIC ACID 1 MG TAB PO SCH (06:16)
[2022-09-29] MEDS: SPIRONOLACTONE 25 MG TAB PO SCH (06:17)
[2022-09-29] MEDS: FUROSEMIDE 40 MG TAB PO SCH (06:17)
[2022-09-29] MEDS: MAGNESIUM OXIDE 400 MG TAB PO SCH (06:18)
[2022-09-29] MEDS: DULoxetine HCL 60 MG CAP PO SCH (06:18)
[2022-09-29] MEDS: ADVANCED PROBIOTIC 1250 MG CAPSULE PO SCH (06:18)
[2022-09-29] MEDS: SENNA 8.6 MG TAB PO PRN (06:19)
[2022-09-29] MEDS: FAMOTIDINE 20 MG TAB PO SCH (06:19)
[2022-09-29] MEDS: ISOSORBIDE DINITRATE 10 MG TAB PO SCH (06:20)
[2022-09-29] MEDS: TAMSULOSIN HCL 0.4 MG CAP PO SCH (06:20)
[2022-09-29] MEDS: buprenorphine HCL 8 MG SUBL SL SCH (06:29)
[2022-09-29 06:30] LABS: Basophils # (auto) 0.06 K/uL (0-0.2); Basophils % (auto) 0.4 %; Eosinophils # (auto) 0.35 K/uL (0-0.50); Eosinophils % (auto) 2.4 %; Hematocrit (blood only) 40.8 % (40.1-51.0); Hemoglobin 12.9 g/dl (14.0-18.0); Immature Granulocytes # (auto) 0.22 K/uL (0.00-0.02); Immature Granulocytes % (auto) 1.5 %; Lymphocytes # (auto) 4.37 K/uL (1.2-3.4); Mean Corpuscular Hemoglobin 27.2 pg (25.0-34.0); Mean Corpuscular Hgb Conc 31.6 g/dL (32.0-36.0); Mean Corpuscular Volume 86.1 fL (80.0-100.0); Mean Platelet Volume 10.2 fL (9.4-12.4); Monocytes # (auto) 0.75 K/uL (0.24-0.82); Monocytes % (auto) 5.2 %; Neutrophils % (auto) 60.5 %; Platelet Count 197 K/uL (130-400); RDW Coefficient of Variation 18.2 % (11.5-14.5); RDW Standard Deviation 56.8 fL (36.4-46.3); Red Blood Count 4.74 M/uL (4.63-6.08); White Blood Count 14.55 K/ul (4.8-10.8)
[2022-09-29 06:54] LABS: Albumin Globulin Ratio 1.2 (0.9-2); Albumin Level 3.4 gm/dl (3.4-5.0); BUN Creatinine Ratio 27.1 (10-20); Bilirubin,Total 0.6 mg/dl (0.2-1.0); Calcium 9.3 mg/dl (8.5-10.1); Creatinine Clr Calc Pharmacy 183.4 ml/min; Est GFR (African American) 116.1 ml/min; Est GFR (Non-African American) 100.2 ml/min; Globulin 2.9 gm/dl (2.5-4.0); Potassium 3.6 mmol/L (3.5-5.1); Total Protein 6.3 gm/dl (6.0-8.3)
[2022-09-29] MEDS: BUDESONIDE 0.5 MG/2 ML VIAL (PULMICORT) NEB SCH (06:55)
[2022-09-29] MEDS: SODIUM CHLOR 7% 4 ML NEB NEB SCH (06:55)
[2022-09-29] MEDS: FORMOTEROL 20 MCG/2 ML VIAL NEB SCH (06:55)
[2022-09-29] MEDS: ALBUT/IPRATROP 3MG/0.5MG NEB 3 ML VIAL NEB SCH (06:55)
[2022-09-29 07:11] LABS: INR 1.4 (0.9-1.1); Prothrombin Time 14.9 Seconds (9.0-12.0)
[2022-09-29] MEDS: LANTUS PER UNIT CHARGE SQ SCH (08:41)
[2022-09-29] MEDS ORDERED: predniSONE 10 MG TABLET PO SCH (09:00)
--- NOTE | 2022-09-29 16:16 | Discharge Summary ---
Date of Service September 29, 2022 Admission HPI Per Admitting Provider This is a 52-year-old male with a past medical history significant for type 2 diabetes, hypertension, history of PE, on Coumadin; diastolic CHF, chronic back pain, history of COPD, urinary retention with chronic Lloyd, depression, anxiety, history of subdural hematoma, subarachnoid hemorrhage, history of STEMI, history of recurrent multiple hospitalizations presenting with worsening shortness of breath and cough.SOB with any movement. Coughing a lot as well but usually unable to cough up sputum. Uses 4L O2 HS and PRN throughout the day. Endorses wheezing, congestion and chills. Decreased sense of taste. Recently competed course of steroids and Macrobid antibiotic. Legs are at baseline for swelling. Feels like he gained weight while on steroids and eating over the holidays. States he is up 30#. Still smoking 1/2-1 ppd. Last time catheter was exchanged was 07/30/22. Denies fever, lightheadedness, headache, yeimi CP, N/V, abdominal pain, diarrhea or constipation. Admission Exam Per Admitting Provider General Appearance:Morbidly Obese, no apparent distress Head: normocephalic, Atraumatic Eyes: normal inspection, EOMI Neck: supple, Trachea midline Respiratory/Chest: Decrease breath sounds, B/L wheezing CTA, No accessory muscle use Cardiovascular: S1, S2, No murmur Abdomen/GI:Soft, Non tender, Bowel sounds present Extremities/Musculoskeletal:normal inspection, chronic venous stasis changes, nonpitting trace edema Neurologic/Psych:AAOX3, grossly no focal neurological deficits Skin: normal color, warm Principal Diagnosis Acute on chronic respiratory failure with hypoxia Acute COPD exacerbation Acute on chronic diastolic CHF Subtherapeutic INR Discharge Exam General Appearance:Morbidly Obese, no apparent distress Head: normocephalic, Atraumatic Eyes: normal inspection, EOMI Neck: supple, Trachea midline Respiratory/Chest: No wheeze. Bilateral vesicular breath sound Cardiovascular: S1, S2, No murmur Abdomen/GI:Soft, Non tender, Bowel sounds present Extremities/Musculoskeletal:normal inspection, chronic venous stasis changes, nonpitting trace edema Neurologic/Psych:AAOX3, grossly no focal neurological deficits Skin: normal color, warm Discharge Data Allergies Allergy/AdvReac Type Severity Reaction Status Date / Time cefepime Allergy Intermediate rash Verified 09/19/22 13:53 daptomycin Allergy Intermediate rash Verified 09/19/22 13:53 fentanyl Allergy Intermediate RASH/HIVES/SKIN Verified 09/19/22 13:53 REDNESS naloxone AdvReac Severe extremely Verified 09/19/22 13:53 sick acetaminophen [From Tylenol] AdvReac Intermediate IRRITATES Verified 09/19/22 13:53 & UPSET STOMACH ibuprofen AdvReac Intermediate Nausea Verified 09/19/22 13:53 valproic acid AdvReac Intermediate PANCREATITS Verified 09/19/22 13:53 Consultations 09/19/22 15:47 ED Decision to Admit Stat Hospital Course (1) Acute on chronic respiratory failure with hypoxia and hypercapnia: (2) COPD exacerbation: (3) (HFpEF) heart failure with preserved ejection fraction: (4) Hypokalemia: (5) Chronic indwelling Lloyd catheter: (6) Lloyd catheter problem: (7) 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: (8) Morbid obesity: Plan Patient is a 52 yr male with H/O Type 2 diabetes, hypertension, history of PE, on Coumadin; diastolic CHF, chronic back pain, history of COPD, urinary retention with chronic Lloyd, depression, anxiety, history of subdural hematoma, subarachnoid hemorrhage, history of STEMI, history of recurrent multiple hospitalizations presenting with worsening shortness of breath and cough and found to have acute on chronic respiratory failure in setting of COPD exacerbation and mildly decompensated HFpEF. Patient was treated during the hospitalization with IV diuretics, [id number]-[id number] duo nebs, IV steroids for treatment of heart failure and COPD respectively. Over the course of the hospitalization, patient gradually improved with decreased congestion and decrease in wheeze. Patient's PT/INR was monitored throughout and his warfarin dose was titrated based on the PT/INR. PT OT evaluation was done which recommended home with PT OT. Patient was discharged back home with instruction to keep complete course of steroid. He was instructed to follow-up with his primary care doctor as well. Total Time Total Time Spent Total Time Spent (In Minutes): 45 Total Time Includes: Examination of the Patient, Discharge Planning, Medication Reconciliation, Communication With Other Providers and Other Discharge Plan Discharge Items Patient Disposition: Home - Self-Care Reason For Visit: COPD EXACERBATION, HYPOXIA Discharge Diagnosis: (1) Acute on chronic respiratory failure with hypoxia and hypercapnia: (2) COPD exacerbation: (3) (HFpEF) heart failure with preserved ejection fraction: (4) Hypokalemia: (5) Chronic indwelling Lloyd catheter: Activity: Resume your previous activity Non-emergency contact: Primary Care Provider Call non-emergency contact if: you have any medication questions and your symptoms worsen Follow-up/Referrals: Roberto Askew MD [Primary Care Provider] - (Date & Time 10/07/2022 5:20 PM Provider Roberto Askew MD Department General Internal Medicine [facility] This is a telemedicine appointment. Please follow the instructions provided in your email for this video appointment.) Diet: Regular Addtl Attending Provider Instructions: You were admitted to the hospital with COPD exacerbation and heart failure. You are prescribed prednisone 20 mg to be taken for 5 more days. Follow-up with your primary care doctor on October 07. Continue to take all other medication as prescribed before. Please take your warfarin; dose change as per anticoagulation clinic. Pending Studies at Discharge: No Stand-Alone Forms: My [facility] [employer], Smoking Cessation Medications and DC Order Prescriptions: New prednisone 10 mg Tablet 20 mg PO DAILY 5 Days Qty: 10 0RF Continued tamsulosin [Flomax] 0.4 mg capsule 0.8 mg PO QAM Qty: 180 3RF polyethylene glycol 3350 [Miralax] 17 gram powder in packet 17 g PO QAM nitroglycerin [Nitrostat] 0.4 mg tablet, sublingual 0.4 mg Sublingual DIRECTED PRN (Reason: CHEST PAIN) Rx Instructions: PLACE ONE TABLET UNDER THE TONGUE EVERY 5 MINUTES FOR UP TO 3 DOSES OVER 15 MINUTES IF NEEDED FOR CHEST PAIN nystatin 100,000 unit/gram Powder 1 applic TOPICAL TID PRN (Reason: Skin Irritation) Rx Instructions: APPLY DIRECTED TO ABDOMINAL FOLDS cyclobenzaprine 10 mg Tablet 10 mg PO BID PRN (Reason: Muscle Spasm) ipratropium-albuterol 0.5 mg-3 mg(2.5 mg base)/3 mL Solution For Nebulization 3 ml INHALATION Q6H PRN (Reason: Shortness Of Breath Or Wheezing) docusate sodium 100 mg Capsule 100 mg PO BID duloxetine 60 mg capsule,delayed release(DR/EC) 60 mg PO DAILY famotidine 20 mg tablet 20 mg PO DAILY fluticasone propionate 50 mcg/actuation spray,suspension 2 spray Intranasal DAILY aspirin [Ecotrin Low Strength] 81 mg tablet,delayed release (DR/EC) 81 mg PO QAM finasteride 5 mg tablet 5 mg PO QAM metoprolol succinate 50 mg Tablet Extended Release 24 Hr 75 mg PO BID spironolactone 25 mg Tablet 25 mg PO QAM atorvastatin 80 mg tablet 80 mg PO QPM Rx Instructions: TAKE THIS MEDICATION EVERY AFTERNOON sennosides [senna] 8.6 mg Tablet 8.6 mg PO DAILY PRN (Reason: Constipation) folic acid 1 mg Tablet 1 mg PO QAM furosemide [Lasix] 40 mg tablet 40 mg PO BID albuterol sulfate 90 mcg/actuation Hfa Aerosol Inhaler 2 puff INHALATION Q4 PRN (Reason: Dyspnea) omeprazole 20 mg Capsule,Delayed Release(Dr/Ec) 20 mg PO DAILYBB gabapentin 800 mg tablet 800 mg PO TID buprenorphine HCl 8 mg tablet, sublingual 8 mg SUBLINGUAL TID Rx Instructions: Per Dr 1st glipizide 10 mg tablet 10 mg PO BID urea [Ureacin-20] 20 % Cream 1 applic TOPICAL BID magnesium oxide 400 mg (241.3 mg magnesium) tablet 400 mg PO DAILY ferrous sulfate 325 mg (65 mg iron) Tablet 325 mg PO QAM Rx Instructions: Take with breakfast hydroxyzine HCl 25 mg Tablet 25 mg PO QID PRN (Reason: Anxiety) ondansetron HCl 4 mg Tablet 4 mg PO Q8H PRN (Reason: NAUSEA/VOMITING) benzonatate 100 mg Capsule 100 mg PO TID PRN (Reason: cough) Qty: 10 0RF metolazone 2.5 mg tablet 2.5 mg PO UD Qty: 12 1RF Rx Instructions: take 1 tab 3x a week (wed/wed/wed) Lactinex 1 million cell tablet,chewable 1 tab PO TID Qty: 30 0RF isosorbide dinitrate 30 mg tablet 30 mg PO DAILY phenazopyridine [Pyridium] 200 mg tablet 200 mg PO Q8H PRN (Reason: pain) Qty: 15 0RF warfarin 5 mg tablet 2.5 - 5 mg PO UD Rx Instructions: take 5 mg in the evening every wednesday and take 2.5 mg every other evening of the week guaifenesin [Mucinex] 600 mg Tablet Extended Release 12hr 1,200 mg PO BID potassium chloride 20 mEq tablet extended release 20 meq PO BID lorazepam 0.5 mg tablet 0.5 mg PO Q8 PRN (Reason: Anxiety) Qty: 6 0RF insulin aspart U-100 [Novolog Flexpen U-100 Insulin] 100 unit/mL (3 mL) Insulin Pen 1 unit SUBCUT TIDM Qty: 30 0RF Rx Instructions: inject 1 unit uner the skin three times a day with meals. units as per sliding scale as instructed by provider to cover for steroid coverage when warranted insulin glargine [Lantus Solostar U-100 Insulin] 100 unit/mL (3 mL) Insulin Pen 50 unit SC HS 30 Days Qty: 15 0RF Stiolto Respimat 2.5-2.5 mcg/actuation mist 2 puff inhalation DAILY Qty: 4 0RF Discharge Orders: Discharge Order (Routine); Ordered 09/29/22 Ordered By: Armando Rojas Admission Data Admit Date/Time: 09/19/22 16:12 Attending Provider: Armando Rojas Admit Provider: Dipesh Wright Primary Care Provider: Roberto Askew Other Providers: Dipesh Wright ; [facility] Other Interventions: Discharge Summary Assessment (RN) Last Done: 09/29/22 08:48
--- NOTE | 2022-10-09 13:57 | Coding Query ---
CODING QUERY To promote full compliance with coding requirements relating to patient care, provider participation is requested in all cases of siding coreboard inspector uncertainty. Please assist us with the question(s) below: Coding Question(s): Please specify below, in your clinical opinion, the diagnosis most responsible for occasioning the Inpatient admission: ( ) HFpEF heart failure with preserved ejection fraction - decompensated HFpEF ( X) COPD Exacerbation ( ) Acute on Chronic Respiratory Failure with Hypoxia and Hypercapnia ( ) Other: Please Specify Physician's Response(s): Thank you Cailin Lechuga Principal Diagnosis: "that condition established after study, to be chiefly responsible for occasioning the admission of the patient to the hospital for care." Co-Existing Principal Diagnosis: "when two or more diagnoses equally meet the criteria for principal diagnosis as determined by the circumstances of admission, diagnostic work up, and/or therapy provided, and the Alphabetic Index, Tabular List, or another coding guideline does not provide sequencing direction, any one of the diagnoses may be sequenced first." "When the physician has documented what appears to be a current diagnosis in the body of the record, but has not included the diagnosis in the final diagnostic statement, the physician should be asked whether the diagnosis should be added." (Source Coding [facility] 2 QTR90. p3-4) [place]
== END 2022-09-29 09:29 | disposition home health service (06) | DRG 190 ==
LOC: ED 12:51 → SUATTDRO 16:12 → EDINP 16:12 → 2S 20:05

== ENCOUNTER 2022-10-10 23:45 | Inpatient (IN) ==
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
[2022-10-11 00:41] LABS: Basophils # (auto) 0.04 K/uL (0-0.2); Basophils % (auto) 0.4 %; Hematocrit (blood only) 37.8 % (40.1-51.0); Immature Granulocytes # (auto) 0.03 K/uL (0.00-0.02); Immature Granulocytes % (auto) 0.3 %; Lymphocytes # (auto) 2.93 K/uL (1.2-3.4); Lymphocytes % (auto) 29.4 %; Mean Corpuscular Hemoglobin 27.3 pg (25.0-34.0); Mean Corpuscular Hgb Conc 31.7 g/dL (32.0-36.0); Mean Corpuscular Volume 86.1 fL (80.0-100.0); Mean Platelet Volume 10.1 fL (9.4-12.4); Monocytes # (auto) 0.54 K/uL (0.24-0.82); Monocytes % (auto) 5.4 %; Neutrophils # (auto) 5.94 K/uL (1.4-6.5); Neutrophils % (auto) 59.5 %; Platelet Count 220 K/uL (130-400); RDW Coefficient of Variation 18.1 % (11.5-14.5); Red Blood Count 4.39 M/uL (4.63-6.08); White Blood Count 9.98 K/ul (4.8-10.8)
[2022-10-11 01:07] LABS: Troponin I High Sensitivity 3.9 pg/ml (0-20)
[2022-10-11 01:22] LABS: Albumin Level 3.2 gm/dl (3.4-5.0); Bilirubin,Total 0.6 mg/dl (0.2-1.0); Calcium 9.2 mg/dl (8.5-10.1); Potassium 4.4 mmol/L (3.5-5.1)
[2022-10-11 01:28] LABS: BUN Creatinine Ratio 8.6 (10-20); Est GFR (African American) 125.8 ml/min; Est GFR (Non-African American) 108.5 ml/min; Globulin 3.3 gm/dl (2.5-4.0); Total Protein 6.5 gm/dl (6.0-8.3)
[2022-10-11] MEDS ORDERED: FUROSEMIDE 40 MG/4 ML VIAL IV ONE (03:27)
[2022-10-11] MEDS ORDERED: ACETAMINOPHEN 1,000 MG/100 ML VIAL IV STA ×3 (04:14→23:23)
[2022-10-11] MEDS ORDERED: ALBUT/IPRATROP 3MG/0.5MG NEB 3 ML VIAL INH PRN (05:39)
[2022-10-11] MEDS ORDERED: GLUCOSE 40% GEL 15 GM TUBE PO PRN (05:39)
[2022-10-11] MEDS ORDERED: GLUCAGON FOR INJ 1 MG VIAL SQ PRN (05:39)
[2022-10-11] MEDS ORDERED: ALBUTEROL HFA 8 GM INHALER INH PRN (05:39)
[2022-10-11] MEDS ORDERED: GLUCOSE 10 TAB/TUBE PO PRN (05:39)
[2022-10-11] MEDS ORDERED: LORazepam 0.5 MG TAB PO PRN (05:39)
[2022-10-11] MEDS ORDERED: ACETAMINOPHEN 325 MG TAB PO PRN (05:39)
[2022-10-11] MEDS ORDERED: POLYETHYLENE (MIRALAX) 17 GM PACK PO PRN (05:39)
[2022-10-11] MEDS ORDERED: ONDANSETRON 4 MG OD TAB PO PRN (05:39)
[2022-10-11] MEDS ORDERED: NITROGLYCERIN SL 0.4 MG/TAB TAB SL PRN ×2 (05:39)
[2022-10-11] MEDS ORDERED: hydrOXYzine HCl 25 MG TAB PO PRN (05:39)
[2022-10-11] MEDS ORDERED: SENNA 8.6 MG TAB PO PRN (05:39)
[2022-10-11] MEDS ORDERED: CARBOHYDRATES FOR HYPOGLYCEMIA PO PRN (05:39)
[2022-10-11] MEDS ORDERED: DEXTROSE 50% 50 ML SYRINGE IV PRN (05:39)
--- NOTE | 2022-10-11 06:39 | History and Physical Report ---
CHIEF COMPLAINT: Shortness of breath and weight gain. HISTORY OF PRESENT ILLNESS: This is a 52-year-old male with past medical history significant for type 2 diabetes; hypertension; history of PE, on Coumadin; diastolic CHF; chronic back pain; history of COPD; history of urinary retention with chronic Lloyd; depression; anxiety; history of subdural hematoma; history of subarachnoid hemorrhage; history of ST elevated TN; history of sleep apnea and COPD overlap syndrome; history of recurrent multiple admissions, presents with shortness of breath, weight gain. He says he gained 20 pounds in the last 1 week. He also came to change his Lloyd catheter, which was changed in the ER, and ER tried to discharge, but he wanted to get admitted, complaining of shortness of breath. He states he uses 4 liters of oxygen in the nighttime and when he woke up in the morning, his oxygen was still 83%, so he kept his oxygen on the daytime also today. Not able to do much because of shortness of breath. He is having some cough. He still smokes. He says he is smoking like one pack of cigarettes in 2 days. He has some mild chest pain, mild headache, no blurred visions. Currently, no earaches, no runny nose, no sore throat, no difficulty swallowing. Appetite is not that great as per the patient. No fevers. Somewhat nausea. No abdominal pain. Constipated. Denies any blood in the stools. Sitting on a chair comfortably, saturating okay on 4 liters. ALLERGIES: CEFEPIME, DAPTOMYCIN, FENTANYL, LANOXIN, TYLENOL, IBUPROFEN, VALPROIC ACID. PAST MEDICAL HISTORY: As mentioned above. PAST SURGICAL HISTORY: Colonoscopy, EGD, EGD with endoscopic ultrasound, foot surgery, back surgery, repair of collateral ligament Finger MEDICATIONS: The patient is on albuterol 2 puffs inhalation q. 4 hours p.r.n., aspirin 81 mg p.o. daily, atorvastatin 80 mg p.o. a.m., benzonatate 100 mg p.o. t.i.d. p.r.n., buprenorphine 8 mg sublingual t.i.d., cyclobenzaprine 10 mg p.o. b.i.d. p.r.n., Colace 100 mg p.o. b.i.d., duloxetine 60 mg p.o. daily, famotidine 20 mg p.o. daily, ferrous sulfate 325 mg p.o. a.m., finasteride 5 mg p.o. a.m., Flonase 2 sprays intranasal daily, folic acid 1 mg p.o. daily, Lasix 40 mg p.o. b.i.d., gabapentin 800 mg p.o. t.i.d., glipizide 10 mg p.o. b.i.d., Mucinex 1200 mg p.o. b.i.d., hydroxyzine 25 mg p.o. q.i.d. p.r.n., NovoLog FlexPen t.i.d., Lantus 15 units at bedtime, DuoNebs q. 6 hours p.r.n., isosorbide dinitrate 30 mg p.o. daily, Lactinex 1 tablet p.o. t.i.d., lorazepam 0.5 mg p.o. t.i.d. p.r.n., magnesium oxide 400 mg p.o. daily, metolazone 2.5 mg p.o. 3 times a week, metoprolol succinate 25 mg p.o. b.i.d., nitroglycerin 0.4 mg sublingual p.r.n., nystatin topical t.i.d. p.r.n., omeprazole 20 mg p.o. daily, Zofran 4 mg p.o. q. 8 hours p.r.n., MiraLax 17 g p.o. daily, potassium chloride 20 mEq p.o. b.i.d., Senna 8.6 mg p.o. daily p.r.n., spironolactone 25 mg p.o. a.m., Stiolto Respimat 2 puffs inhalation daily, Flomax 0.8 mg p.o. daily, warfarin as directed. FAMILY HISTORY: Significant for sister has breast cancer; mother has back problems; father of natural causes at 79; father had aneurysm; maternal grandfather has heart disorder; maternal grandmother has heart disorder. SOCIAL HISTORY: He says he is currently smoking half pack a day. No alcohol, no history of opiate dependence. REVIEW OF SYSTEMS: As per HPI. Rest of review of systems is negative. PHYSICAL EXAMINATION: GENERAL: The patient is morbidly obese, not in acute distress. VITAL SIGNS: Temperature afebrile, pulse 75, respiratory rate 16, blood pressure 106/59, oxygen 99% on 4 liters. HEENT: Pupils equal, round and reactive to light. Oral mucosa moist. NECK: No JVD, no neck masses. CARDIOVASCULAR: S1 and S2 heard. Regular rate and rhythm. No murmur, no gallop. RESPIRATORY SYSTEM: Normal AP diameter. Diminished bilateral breath sounds. Mild bibasilar crackles. ABDOMEN: Soft, bowel sounds present, nontender, no distention. CENTRAL NERVOUS SYSTEM: Alert and oriented. Speech is clear. No facial droop. Obeys simple commands. Insight is okay. Moves extremities. EXTREMITIES: Bilateral lower extremity gross edema present, no erythema seen. SKIN: Chronic skin changes seen. LABORATORY DATA: WBC 9.9, hemoglobin 12, hematocrit 37.8, platelets 220. Sodium 136, potassium 4.4, chloride 104, bicarbonate 26, BUN 6, creatinine 0.7, serum glucose 129, calcium 9.2, total bilirubin 0.6, AST 14, ALT 16, alkaline phosphatase 86. Troponin I high sensitivity 3.9, lipase 6. SARS-CoV-2 rapid test negative. IMAGING DATA: Chest x-ray: Mild pulmonary congestion. EKG: Normal sinus rhythm, rate of 85, nonspecific ST abnormalities. ASSESSMENT AND PLAN: This is a 52-year-old male with history of morbid obesity, nocturnal hypoxia, chronic obstructive pulmonary disease obstructive sleep apnea overlap syndrome, diastolic congestive heart failure, history of myocardial infarction, ongoing tobacco abuse, presents with weight gain and shortness of breath. 1. Shortness of breath and weight gain.[id number] diastolic congestive heart failure: ER gave a dose of IV Lasix 40. Will continue his IV Lasix 40 b.i.d. He is also on metolazone three times a week, which will be continued. I's and O's, daily weights. Monitor for the response. Consult cardiology in the a.m. 2. Chest pain. Seems chronic. will follow serial CE. EKG ok. 3. History of diabetes: Continue his home Lantus. Hold his glipizide. Placed him on insulin sliding scale. Follow the blood sugars. 4. BPH Chronic indwelling Lloyd catheter, changed today: Lloyd care.On Flomax and Proscar. 5. Morbid obesity: Needs counseling. 6. History of chronic obstructive pulmonary disease: Ongoing tobacco abuse. Needs counseling. Continue his home inhalers and nebs p.r.n. 7. Chronic respiratory failure: On home oxygen secondary to chronic obstructive pulmonary disease and congestive heart failure and DARIA,. 8. History of pulmonary embolism: On Coumadin. Follow the PT/INR. 9. Chronic pain: Continue his home pain medications. 10. Anxiety: On Ativan p.r.n. 11. Deep venous thrombosis: On Coumadin. Follow PT/INR. DISPOSITION: Closely monitor in tele floor. Level 1 full code. Expect to discharge home and follow with family doctor. Job ID: [id number] [facility]ITALMyrtle
[2022-10-11] MEDS: PANTOprazole 40 MG TAB PO SCH (07:18)
[2022-10-11 07:22] LABS: INR 3.3 (0.9-1.1); Prothrombin Time 33.1 Seconds (9.0-12.0)
--- NOTE | 2022-10-11 07:37 | XRay Report ---
XR chest 1V portable HISTORY: 52 years-old Male Chest pain, nonspecific COMPARISON: September 22, 2022 TECHNIQUE: AP view of the chest FINDINGS: Cardiac silhouette is enlarged. Pulmonary vascular congestion. No pneumothorax. Trace pleural effusio ns suggested along with mild bibasilar atelectasis. Mild interstitial coarsening. Degenerative change s of the shoulders and spine. Healed chronic left-sided clavicular fracture. IMPRESSION: 1. Cardiomegaly with pulmonary vascular congestion and questionable mild pulmonary edema. 2. Trace pleural effusions. ACT 112: Negative or not required by law. The above report was generated using voice recognition software. It may contain grammatical, syntax o r spelling errors. Electronically signed by: Shelton Apodaca M.D. 10/11/2022 7:35 AM
[2022-10-11] MEDS: POLYETHYLENE (MIRALAX) 17 GM PACK PO SCH (08:30)
[2022-10-11] MEDS: FUROSEMIDE 40 MG/4 ML VIAL IV SCH ×2 (08:30→20:46)
[2022-10-11] MEDS: ASPIRIN 81 MG ECTAB PO SCH (08:30)
[2022-10-11] MEDS: MAGNESIUM OXIDE 400 MG TAB PO SCH (08:30)
[2022-10-11] MEDS: POTASSIUM CHLORIDE CRTAB 20 MEQ TABCR PO SCH ×2 (08:30→20:46)
[2022-10-11] MEDS: buprenorphine HCL 8 MG SUBL SL SCH ×3 (08:30→21:10)
[2022-10-11] MEDS: FLUTICASONE PROPIONATE NA SPR 16 GM BTL SCH (08:30)
[2022-10-11] MEDS: SPIRONOLACTONE 25 MG TAB PO SCH (08:31)
[2022-10-11] MEDS: ADVANCED PROBIOTIC 1250 MG CAPSULE PO SCH ×3 (08:31→20:47)
[2022-10-11] MEDS: FINASTERIDE 5 MG TAB PO SCH (08:31)
[2022-10-11] MEDS: METOPROLOL SUCC 25MG EXT REL TAB PO SCH ×2 (08:31→20:47)
[2022-10-11] MEDS: DOCUSATE SODIUM 100 MG CAP PO SCH ×2 (08:31→20:47)
[2022-10-11] MEDS: ISOSORBIDE DINITRATE 10 MG TAB PO SCH (08:32)
[2022-10-11] MEDS: TAMSULOSIN HCL 0.4 MG CAP PO SCH (08:32)
[2022-10-11] MEDS: FERROUS SULFATE 325 MG TAB PO SCH (08:32)
[2022-10-11] MEDS: UMECLIDINIUM/VILANTEROL 62.5/25MCG 7 PUFFS/INHALER INH SCH (08:33)
[2022-10-11] MEDS: guaiFENesin 600 MG TABCR PO SCH ×2 (08:33→20:48)
[2022-10-11] MEDS: DULoxetine HCL 60 MG CAP PO SCH (08:33)
[2022-10-11] MEDS: FAMOTIDINE 20 MG TAB PO SCH (08:33)
[2022-10-11] MEDS: FOLIC ACID 1 MG TAB PO SCH (08:33)
[2022-10-11] MEDS: GABAPENTIN 800 MG TAB PO SCH ×3 (08:33→20:48)
[2022-10-11] MEDS: INSULIN ASPART PER UNIT SC SCH ×4 (08:34→20:36)
[2022-10-11] MEDS: CYCLOBENZAPRINE HCL 10 MG TAB PO PRN ×2 (08:36→21:10)
--- NOTE | 2022-10-11 10:56 | Electrocardiogram Report ---
Test Reason : Blood Pressure : / mmHG Vent. Rate : 085 BPM Atrial Rate : 085 BPM P-R Int : 154 ms QRS Dur : 096 ms QT Int : 360 ms P-R-T Axes : 086 053 072 degrees QTc Int : 428 ms Poor data quality, interpretation may be adversely affected Normal sinus rhythm RSR' or QR pattern in V1 suggests right ventricular conduction delay When compared with ECG of 19-SEP-2022 12:58, ST less depressed in Lateral leads T wave inversion no longer evident in Inferior leads T wave inversion no longer evident in Anterolateral leads Confirmed by Bobby Proctor ([id number]) on 10/11/2022 10:56:38 AM Referred By: Nikolai Liang Confirmed By:Bobby Proctor
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
--- NOTE | 2022-10-11 12:58 | Hospitalist Progress Note ---
Date of Service October 11, 2022 Assessment & Plan (1) (HFpEF) heart failure with preserved ejection fraction: Plan: Past medical history of morbid obesity, COPD, diastolic heart failure who presents to the hospital with weight gain and shortness of breath. Recently hospitalized due to COPD exacerbation and acute on chronic diastolic heart failure. She reports being compliant to the medication and diet. Chest x-ray shows mild pulmonary edema High-sensitivity troponin negative Plan; -Started on IV Lasix 40 mg twice daily; continue his home metolazone Daily weights Strict input and output monitoring -Continue on Aldactone, metoprolol Cardiology on board; appreciate recs. (2) COPD (chronic obstructive pulmonary disease): Plan: History of COPD exacerbations in the past Currently no wheeze on examination. Chest x-ray does not show any infiltrates Continue home inhalers and duo nebs as needed Chronic indwelling Lloyd Catheter Changed Lloyd catheter; change in ED H/O Pulmonary embolism Continue on Coumadin DM II Last Hb A1C:8.8 Hold home agents Basal/bolus insulin per protocol BSG AC HS Chronic pain syndrome Right foot pain On Suboxone DVT Px: on warfarin PT OT ordered; patient had home physical therapy after getting discharged from the hospital. Patient reports that the cost is too much for him and he is unable to afford. He would like to be placed in SNF. Admission and Anticipated Discharge Date Admission Date: October 11, 2022 Subjective Patient seen and examined at bedside. He is sitting up on the chair. he reports generalized body swelling and shortness of breath on exertion. Review of Systems Review of Systems: All systems reviewed & are unremarkable except as noted in Subjective Physical Exam Physical Exam: General Appearance:Morbidly Obese, no apparent distress Head: normocephalic, Atraumatic Eyes: normal inspection, EOMI Neck: supple, Trachea midline Respiratory/Chest: Decreased breath sounds at bases; no wheeze. Cardiovascular: S1, S2, No murmur Abdomen/GI:Soft, Non tender, Bowel sounds present Extremities/Musculoskeletal:normal inspection, chronic venous stasis changes. Significant pitting edema present. Neurologic/Psych:AAOX3, grossly no focal neurological deficits Skin: normal color, warm Results & Data Results & Data ([facility]) Vital Signs (Past 12 Hours) Vital Signs Temp Pulse Pulse Resp BP BP Pulse Ox 10/11/22 11:29 36.3 C L 80 20 107/65 97 10/11/22 08:00 71 10/11/22 08:00 10/11/22 08:14 36.6 C 73 22 115/69 96 10/11/22 05:33 73 10/11/22 05:39 10/11/22 05:51 36.6 C 79 20 119/70 98 10/11/22 05:00 70 14 102/63 10/11/22 04:30 70 18 101/72 97 10/11/22 04:07 78 20 116/81 10/11/22 03:33 77 19 106/59 L 10/11/22 03:36 75 16 106/59 L 99 Pulse Ox O2 Del Method O2 Del Method O2 Flow Rate O2 Flow Rate 10/11/22 11:29 Nasal Cannula 4 10/11/22 08:00 10/11/22 08:00 Nasal Cannula 4 10/11/22 08:14 Nasal Cannula 4 10/11/22 05:33 10/11/22 05:39 98 Nasal Cannula 4 10/11/22 05:51 Nasal Cannula 4 10/11/22 05:00 10/11/22 04:30 10/11/22 04:07 10/11/22 03:33 10/11/22 03:36 Nasal Cannula 4 Laboratory Results Laboratory Results WBC 9.98 K/ul (4.8-10.8) 10/11/22 00:25 RBC 4.39 M/uL (4.63-6.08) L 10/11/22 00:25 Hgb 12.0 g/dl (14.0-18.0) L 10/11/22 00:25 Hct 37.8 % (40.1-51.0) L 10/11/22 00:25 MCV 86.1 fL (80.0-100.0) 10/11/22 00:25 MCH 27.3 pg (25.0-34.0) 10/11/22 00:25 MCHC 31.7 g/dL (32.0-36.0) L 10/11/22 00:25 RDW Std Deviation 57.0 fL (36.4-46.3) H 10/11/22 00:25 RDW Coeff of Megan 18.1 % (11.5-14.5) H 10/11/22 00:25 Plt Count 220 K/uL (130-400) 10/11/22 00:25 MPV 10.1 fL (9.4-12.4) 10/11/22 00:25 Immature Gran % (Auto) 0.3 % 10/11/22 00:25 Neut % (Auto) 59.5 % 10/11/22 00:25 Lymph % (Auto) 29.4 % 10/11/22 00:25 [place] % (Auto) 5.4 % 10/11/22 00:25 Eos % (Auto) 5.0 % 10/11/22 00:25 Baso % (Auto) 0.4 % 10/11/22 00:25 Neut # (Auto) 5.94 K/uL (1.4-6.5) 10/11/22 00:25 Lymph # (Auto) 2.93 K/uL (1.2-3.4) 10/11/22 00:25 [place] # (Auto) 0.54 K/uL (0.24-0.82) 10/11/22 00:25 Eos # (Auto) 0.50 K/uL (0-0.50) 10/11/22 00:25 Baso # (Auto) 0.04 K/uL (0-0.2) 10/11/22 00:25 Immature Gran # (Auto) 0.03 K/uL (0.00-0.02) H 10/11/22 00:25 PT 33.1 Seconds (9.0-12.0) H 10/11/22 06:57 INR 3.3 (0.9-1.1) H 10/11/22 06:57 Sodium 136 mmol/L (136-145) 10/11/22 00:25 Potassium 4.4 mmol/L (3.5-5.1) 10/11/22 00:25 Chloride 104 mmol/L (98-107) 10/11/22 00:25 Carbon Dioxide 26 mmol/L (21-32) 10/11/22 00:25 Anion Gap 6 (3-11) 10/11/22 00:25 BUN 6 mg/dl (6-23) 10/11/22 00:25 Creatinine 0.70 mg/dl (0.6-1.4) 10/11/22 00:25 Est Cr Clr Drug Dosing 221.0 ml/min 10/11/22 00:25 Est GFR ( Amer) 125.8 ml/min 10/11/22 00:25 Est GFR (Non-Af Amer) 108.5 ml/min 10/11/22 00:25 BUN/Creatinine Ratio 8.6 (10-20) L 10/11/22 00:25 Glucose 129 mg/dl (70-99(Fasting)) H 10/11/22 00:25 POC Glucose 155 mg/dl (70-99) H 10/11/22 11:10 Calcium 9.2 mg/dl (8.5-10.1) 10/11/22 00:25 Total Bilirubin 0.6 mg/dl (0.2-1.0) 10/11/22 00:25 AST 14 U/L (13-39) 10/11/22 00:25 ALT 16 U/L (7-52) 10/11/22 00:25 Alkaline Phosphatase 86 U/L (34-104) 10/11/22 00:25 Troponin I High Sens 5.3 pg/ml (0-20) 10/11/22 06:57 Total Protein 6.5 gm/dl (6.0-8.3) 10/11/22 00:25 Albumin 3.2 gm/dl (3.4-5.0) L 10/11/22 00:25 Globulin 3.3 gm/dl (2.5-4.0) 10/11/22 00:25 Albumin/Globulin Ratio 1.0 (0.9-2) 10/11/22 00:25 Lipase 6 U/L (11-82) L 10/11/22 00:25 SARS-CoV-2, RNA, NAAT NEGATIVE (NEGATIVE) 10/11/22 03:37 Impressions Chest X-Ray 10/11/22 00:10 XR chest 1V portable HISTORY: 52 years-old Male Chest pain, nonspecific COMPARISON: September 22, 2022 TECHNIQUE: AP view of the chest FINDINGS: Cardiac silhouette is enlarged. Pulmonary vascular congestion. No pneumothorax. Trace pleural effusions suggested along with mild bibasilar atelectasis. Mild interstitial coarsening. Degenerative changes of the shoulders and spine. Healed chronic left-sided clavicular fracture. IMPRESSION: 1. Cardiomegaly with pulmonary vascular congestion and questionable mild pulmonary edema. 2. Trace pleural effusions. ACT 112: Negative or not required by law. The above report was generated using voice recognition software. It may contain grammatical, syntax or spelling errors. Electronically signed by: Shelton Apodaca M.D. 10/11/2022 7:35 AM (1) COPD (chronic obstructive pulmonary disease) COPD type: unspecified COPD Qualified Code(s): J44.9 - Chronic obstructive pulmonary disease, unspecified
[2022-10-11] MEDS: WARFARIN SOD 2.5 MG TAB PO SCH (16:57)
[2022-10-11] MEDS: LANTUS PER UNIT CHARGE SQ SCH (20:36)
[2022-10-11] MEDS: ATORVASTATIN 40 MG TAB PO SCH (20:46)
[2022-10-11] MEDS: NICOTINE 21 MG/24 HR TDSY TD SCH (21:48)
[2022-10-11] MEDS: LORazepam 0.5 MG TAB PO PRN (21:48)
[2022-10-12 05:43] LABS: Basophils # (auto) 0.05 K/uL (0-0.2); Basophils % (auto) 0.6 %; Eosinophils # (auto) 0.51 K/uL (0-0.50); Eosinophils % (auto) 5.7 %; Hematocrit (blood only) 37.6 % (40.1-51.0); Hemoglobin 11.9 g/dl (14.0-18.0); Immature Granulocytes # (auto) 0.04 K/uL (0.00-0.02); Immature Granulocytes % (auto) 0.5 %; Lymphocytes # (auto) 2.79 K/uL (1.2-3.4); Lymphocytes % (auto) 31.5 %; Mean Corpuscular Hemoglobin 27.2 pg (25.0-34.0); Mean Corpuscular Hgb Conc 31.6 g/dL (32.0-36.0); Mean Platelet Volume 9.9 fL (9.4-12.4); Monocytes # (auto) 0.55 K/uL (0.24-0.82); Monocytes % (auto) 6.2 %; Neutrophils # (auto) 4.93 K/uL (1.4-6.5); Neutrophils % (auto) 55.5 %; Platelet Count 214 K/uL (130-400); RDW Coefficient of Variation 18.3 % (11.5-14.5); RDW Standard Deviation 56.1 fL (36.4-46.3); Red Blood Count 4.37 M/uL (4.63-6.08); White Blood Count 8.87 K/ul (4.8-10.8)
[2022-10-12 05:56] LABS: Calcium 8.9 mg/dl (8.5-10.1); Magnesium 1.7 mg/dl (1.7-2.4); Potassium 4.3 mmol/L (3.5-5.1)
[2022-10-12 06:01] LABS: BUN Creatinine Ratio 8.6 (10-20); Creatinine Clr Calc Pharmacy 167.7 ml/min; Est GFR (Non-African American) 94.1 ml/min
[2022-10-12 06:07] LABS: INR 3.3 (0.9-1.1); Prothrombin Time 33.1 Seconds (9.0-12.0)
[2022-10-12] MEDS: PANTOprazole 40 MG TAB PO SCH (06:08)
[2022-10-12 07:03] LABS: Estimated Average Glucose 177 mg/dl; Hemoglobin A1C 7.8 % (4.5-5.6)
[2022-10-12] MEDS: INSULIN ASPART PER UNIT SC SCH ×4 (08:45→21:20)
[2022-10-12] MEDS: buprenorphine HCL 8 MG SUBL SL SCH ×3 (08:46→21:24)
[2022-10-12] MEDS: POTASSIUM CHLORIDE CRTAB 20 MEQ TABCR PO SCH ×2 (08:46→21:06)
[2022-10-12] MEDS: MAGNESIUM OXIDE 400 MG TAB PO SCH (08:46)
[2022-10-12] MEDS: CYCLOBENZAPRINE HCL 10 MG TAB PO PRN ×2 (08:46→21:24)
[2022-10-12] MEDS: ASPIRIN 81 MG ECTAB PO SCH (08:46)
[2022-10-12] MEDS: FINASTERIDE 5 MG TAB PO SCH (08:46)
[2022-10-12] MEDS: FAMOTIDINE 20 MG TAB PO SCH (08:47)
[2022-10-12] MEDS: DOCUSATE SODIUM 100 MG CAP PO SCH ×2 (08:47→21:00)
[2022-10-12] MEDS: ADVANCED PROBIOTIC 1250 MG CAPSULE PO SCH ×3 (08:47→21:00)
[2022-10-12] MEDS: guaiFENesin 600 MG TABCR PO SCH ×2 (08:47→21:01)
[2022-10-12] MEDS: SPIRONOLACTONE 25 MG TAB PO SCH (08:47)
[2022-10-12] MEDS: GABAPENTIN 800 MG TAB PO SCH ×3 (08:47→20:58)
[2022-10-12] MEDS: FERROUS SULFATE 325 MG TAB PO SCH (08:48)
[2022-10-12] MEDS: DULoxetine HCL 60 MG CAP PO SCH (08:48)
[2022-10-12] MEDS: FOLIC ACID 1 MG TAB PO SCH (08:48)
[2022-10-12] MEDS: TAMSULOSIN HCL 0.4 MG CAP PO SCH (08:48)
[2022-10-12] MEDS: ISOSORBIDE DINITRATE 10 MG TAB PO SCH (08:48)
[2022-10-12] MEDS: FUROSEMIDE 40 MG/4 ML VIAL IV SCH ×2 (08:49→21:01)
[2022-10-12] MEDS: POLYETHYLENE (MIRALAX) 17 GM PACK PO SCH (08:50)
[2022-10-12] MEDS: FLUTICASONE PROPIONATE NA SPR 16 GM BTL SCH (08:50)
[2022-10-12] MEDS: METOPROLOL SUCC 25MG EXT REL TAB PO SCH ×2 (08:50→21:05)
[2022-10-12] MEDS: metOLazone 2.5 MG TABLET PO SCH (08:50)
[2022-10-12] MEDS: UMECLIDINIUM/VILANTEROL 62.5/25MCG 7 PUFFS/INHALER INH SCH (08:50)
[2022-10-12] MEDS: LORazepam 0.5 MG TAB PO PRN ×2 (09:04→21:24)
--- NOTE | 2022-10-12 09:44 | Cardiology Progress Note ---
Date of Service October 12, 2022 Assessment & Plan (1) Acute on chronic respiratory failure with hypoxia and hypercapnia: (2) COPD exacerbation: (3) (HFpEF) heart failure with preserved ejection fraction: (4) Acute on chronic diastolic (congestive) heart failure: Plan The patient is clinically stable. Frankly, there is nothing additional that cardiology can provide input for for this patient. We will see him on an as- needed basis. Admission and Anticipated Discharge Date Admission Date: October 11, 2022 Subjective The patient is status quo Review of Systems Review of Systems: Review of Systems: See HPI for pertinent positives. All other 10 point review of systems are negative. Physical Exam Physical Exam: General: no acute distress and stated age Head: normocephalic, no masses, lesions, tenderness or abnormalities Eyes: conjunctiva are pink and non-injected, sclera clear Neck: supple, no adenopathy, no bruits, normal jugular venous pulse, no hepatojugular reflux Chest: normal shape and normal respiratory effort Lungs: clear to auscultation and percussion Cardiac Exam: - regular rate & rhythm, no murmurs gallops or rubs - normal S1, normal S2 Pulses: 2(+) throughout Abdomen: Obese, soft and nontender Musculoskeletal: no gait disturbance, no joint inflammation, no deforming arthritis Extremities: Changes due to chronic edema and venous stasis Neuro: grossly normal exam Results & Data ([facility]) Vital Signs (Past 12 Hours) Vital Signs Temp Pulse Pulse Resp BP Pulse Ox O2 Del Method 10/12/22 07:00 74 10/12/22 07:44 36.9 C 80 18 104/65 96 Nasal Cannula 10/12/22 03:19 36.3 C L 79 19 105/73 95 Nasal Cannula 10/11/22 22:53 36.9 C 87 19 113/59 L 97 Nasal Cannula O2 Flow Rate 10/12/22 07:00 10/12/22 07:44 4 10/12/22 03:19 4 10/11/22 22:53 4
[2022-10-12] MEDS: MAGNESIUM HYDROXIDE SUSP 30 ML UDC PO SCH (10:43)
[2022-10-12] MEDS: SENNA 8.6 MG TAB PO SCH (10:43)
[2022-10-12] MEDS ORDERED: Nursing to Pharmacy Communication SCH (10:45)
--- NOTE | 2022-10-12 10:53 | Hospitalist Progress Note ---
Date of Service October 12, 2022 Assessment & Plan (1) (HFpEF) heart failure with preserved ejection fraction: Plan: Past medical history of morbid obesity, COPD, diastolic heart failure who presents to the hospital with weight gain and shortness of breath. Recently hospitalized due to COPD exacerbation and acute on chronic diastolic heart failure. She reports being compliant to the medication and diet. Chest x-ray shows mild pulmonary edema High-sensitivity troponin negative Plan; -Started on IV Lasix 40 mg twice daily; continue his home metolazone Daily weights Strict input and output monitoring -Continue on Aldactone, metoprolol Cardiology on board; recommend to continue current treatment. (2) COPD (chronic obstructive pulmonary disease): Plan: History of COPD exacerbations in the past Currently no wheeze on examination. Chest x-ray does not show any infiltrates Continue home inhalers and duo nebs as needed Chronic indwelling Lloyd Catheter Changed Lloyd catheter; change in ED H/O Pulmonary embolism Supratherapeutic INR Coumadin on hold. DM II Last Hb A1C:7.8 Hold home agents Basal/bolus insulin per protocol BS[facility] AC HS Chronic pain syndrome Right foot pain On Suboxone DVT Px: on warfarin PT OT ordered; patient had home physical therapy after getting discharged from the hospital. Patient reports that the cost is too much for him and he is unable to afford. He would like to be placed in SNF. Admission and Anticipated Discharge Date Admission Date: October 11, 2022 Subjective Patient seen and examined at bedside. Reports shortness of breath on exertion and tiredness. Urine output of 2.6 L in 24 hours. Review of Systems Review of Systems: All systems reviewed & are unremarkable except as noted in Subjective Physical Exam Physical Exam: General Appearance:Morbidly Obese, no apparent distress Head: normocephalic, Atraumatic Eyes: normal inspection, EOMI Neck: supple, Trachea midline Respiratory/Chest: Decreased breath sounds at bases; no wheeze. Cardiovascular: S1, S2, No murmur Abdomen/GI:Soft, Non tender, Bowel sounds present Extremities/Musculoskeletal:normal inspection, chronic venous stasis changes. Significant pitting edema present. Neurologic/Psych:AAOX3, grossly no focal neurological deficits Skin: normal color, warm Results & Data Results & Data ([facility]) Vital Signs (Past 12 Hours) Vital Signs Temp Pulse Pulse Resp BP Pulse Ox O2 Del Method 10/12/22 07:00 74 10/12/22 07:44 36.9 C 80 18 104/65 96 Nasal Cannula 10/12/22 03:19 36.3 C L 79 19 105/73 95 Nasal Cannula 10/11/22 22:53 36.9 C 87 19 113/59 L 97 Nasal Cannula O2 Flow Rate 10/12/22 07:00 10/12/22 07:44 4 10/12/22 03:19 4 10/11/22 22:53 4 Laboratory Results Laboratory Results WBC 8.87 K/ul (4.8-10.8) 10/12/22 05:29 RBC 4.37 M/uL (4.63-6.08) L 10/12/22 05:29 Hgb 11.9 g/dl (14.0-18.0) L 10/12/22 05:29 Hct 37.6 % (40.1-51.0) L 10/12/22 05:29 MCV 86.0 fL (80.0-100.0) 10/12/22 05:29 MCH 27.2 pg (25.0-34.0) 10/12/22 05:29 MCHC 31.6 g/dL (32.0-36.0) L 10/12/22 05:29 RDW Std Deviation 56.1 fL (36.4-46.3) H 10/12/22 05:29 RDW Coeff of Megan 18.3 % (11.5-14.5) H 10/12/22 05:29 Plt Count 214 K/uL (130-400) 10/12/22 05:29 MPV 9.9 fL (9.4-12.4) 10/12/22 05:29 Immature Gran % (Auto) 0.5 % 10/12/22 05:29 Neut % (Auto) 55.5 % 10/12/22 05:29 Lymph % (Auto) 31.5 % 10/12/22 05:29 [place] % (Auto) 6.2 % 10/12/22 05:29 Eos % (Auto) 5.7 % 10/12/22 05:29 Baso % (Auto) 0.6 % 10/12/22 05:29 Neut # (Auto) 4.93 K/uL (1.4-6.5) 10/12/22 05:29 Lymph # (Auto) 2.79 K/uL (1.2-3.4) 10/12/22 05:29 [place] # (Auto) 0.55 K/uL (0.24-0.82) 10/12/22 05:29 Eos # (Auto) 0.51 K/uL (0-0.50) H 10/12/22 05:29 Baso # (Auto) 0.05 K/uL (0-0.2) 10/12/22 05:29 Immature Gran # (Auto) 0.04 K/uL (0.00-0.02) H 10/12/22 05:29 PT 33.1 Seconds (9.0-12.0) H 10/12/22 05:29 INR 3.3 (0.9-1.1) H 10/12/22 05:29 Sodium 139 mmol/L (136-145) 10/12/22 05:29 Potassium 4.3 mmol/L (3.5-5.1) 10/12/22 05:29 Chloride 104 mmol/L (98-107) 10/12/22 05:29 Carbon Dioxide 35 mmol/L (21-32) H 10/12/22 05:29 Anion Gap 0 (3-11) L 10/12/22 05:29 BUN 8 mg/dl (6-23) 10/12/22 05:29 Creatinine 0.93 mg/dl (0.6-1.4) 10/12/22 05:29 Est Cr Clr Drug Dosing 167.7 ml/min 10/12/22 05:29 Est GFR ( Amer) 109.0 ml/min 10/12/22 05:29 Est GFR (Non-Af Amer) 94.1 ml/min 10/12/22 05:29 BUN/Creatinine Ratio 8.6 (10-20) L 10/12/22 05:29 Glucose 138 mg/dl (70-99(Fasting)) H 10/12/22 05:29 POC Glucose 125 mg/dl (70-99) H 10/12/22 07:16 Estimat Average Glucose 177 mg/dl 10/12/22 05:29 Hemoglobin A1c 7.8 % (4.5-5.6) H 10/12/22 05:29 Calcium 8.9 mg/dl (8.5-10.1) 10/12/22 05:29 Magnesium 1.7 mg/dl (1.7-2.4) 10/12/22 05:29 Total Bilirubin 0.6 mg/dl (0.2-1.0) 10/11/22 00:25 AST 14 U/L (13-39) 10/11/22 00:25 ALT 16 U/L (7-52) 10/11/22 00:25 Alkaline Phosphatase 86 U/L (34-104) 10/11/22 00:25 Troponin I High Sens 3.4 pg/ml (0-20) 10/11/22 20:08 Total Protein 6.5 gm/dl (6.0-8.3) 10/11/22 00:25 Albumin 3.2 gm/dl (3.4-5.0) L 10/11/22 00:25 Globulin 3.3 gm/dl (2.5-4.0) 10/11/22 00:25 Albumin/Globulin Ratio 1.0 (0.9-2) 10/11/22 00:25 Lipase 6 U/L (11-82) L 10/11/22 00:25 SARS-CoV-2, RNA, NAAT NEGATIVE (NEGATIVE) 10/11/22 03:37 Impressions Chest X-Ray 10/11/22 00:10 XR chest 1V portable HISTORY: 52 years-old Male Chest pain, nonspecific COMPARISON: September 22, 2022 TECHNIQUE: AP view of the chest FINDINGS: Cardiac silhouette is enlarged. Pulmonary vascular congestion. No pneumothorax. Trace pleural effusions suggested along with mild bibasilar atelectasis. Mild interstitial coarsening. Degenerative changes of the shoulders and spine. Healed chronic left-sided clavicular fracture. IMPRESSION: 1. Cardiomegaly with pulmonary vascular congestion and questionable mild pulmonary edema. 2. Trace pleural effusions. ACT 112: Negative or not required by law. The above report was generated using voice recognition software. It may contain grammatical, syntax or spelling errors. Electronically signed by: Shelton Apodaca M.D. 10/11/2022 7:35 AM (1) COPD (chronic obstructive pulmonary disease) COPD type: unspecified COPD Qualified Code(s): J44.9 - Chronic obstructive pulmonary disease, unspecified
[2022-10-12] MEDS: ACETAMINOPHEN 1,000 MG/100 ML VIAL IV PRN (11:15)
[2022-10-12] MEDS: NYSTATIN POWDER 15GM BTL EXT PRN (13:46)
[2022-10-12] MEDS ORDERED: WARFARIN SOD 5 MG TAB PO SCH (16:00)
[2022-10-12] MEDS ORDERED: methylPREDNISolone 60 MG in SYRINGE 0 ML IV STA (20:15)
[2022-10-12] MEDS: NICOTINE 21 MG/24 HR TDSY TD SCH (20:59)
[2022-10-12] MEDS: ATORVASTATIN 40 MG TAB PO SCH (21:07)
[2022-10-12 21:12] LABS: Allen Test Pos (Pos); Base Excess ABG 12.3 mEq/L (-9-1.8); HCO3 ABG 39 mmol/L (19-24); Oxygen Saturation ABG 97.3 % (90-95); PCO2 ABG 59 mmHg (35-46); PO2 ABG 77 mmHg (80-95); pH ABG 7.43 (7.35-7.45)
[2022-10-12] MEDS: LANTUS PER UNIT CHARGE SQ SCH (21:20)
[2022-10-12] MEDS ORDERED: FLUARIX QUADRIVALENT 0.5 ML SYR IM ONE (21:21)
--- NOTE | 2022-10-12 21:35 | XRay Report ---
XR chest 1V portable CLINICAL HISTORY: Shortness of breath. COMPARISON STUDY: Chest radiograph October 11, 2022. FINDINGS: There is no pneumothorax. Possible trace bilateral pleural effusions are unchanged. Cardiom egaly and pulmonary vascular congestion are similar to prior exam. The appearance of the chest is unc hanged. IMPRESSION: No significant change in appearance of the chest. Pulmonary vascular congestion with tra ce bilateral pleural effusions. ACT 112: Negative or not required by law. Electronically signed by: Evelio Corbin M.D. 10/12/2022 9:33 PM
[2022-10-12] MEDS ORDERED: ALBUT/IPRATROP 3MG/0.5MG NEB 3 ML VIAL NEB PRN (21:37)
[2022-10-13] MEDS: ACETAMINOPHEN 1,000 MG/100 ML VIAL IV PRN ×2 (01:05→13:43)
[2022-10-13] MEDS: PANTOprazole 40 MG TAB PO SCH (06:03)
[2022-10-13] MEDS: ALBUT/IPRATROP 3MG/0.5MG NEB 3 ML VIAL NEB SCH ×4 (07:25→20:02)
[2022-10-13 07:58] LABS: Basophils # (auto) 0.01 K/uL (0-0.2); Basophils % (auto) 0.1 %; Eosinophils # (auto) 0.01 K/uL (0-0.50); Eosinophils % (auto) 0.1 %; Hematocrit (blood only) 39.5 % (40.1-51.0); Hemoglobin 12.8 g/dl (14.0-18.0); Immature Granulocytes # (auto) 0.05 K/uL (0.00-0.02); Immature Granulocytes % (auto) 0.5 %; Lymphocytes # (auto) 1.23 K/uL (1.2-3.4); Lymphocytes % (auto) 12.5 %; Mean Corpuscular Hgb Conc 32.4 g/dL (32.0-36.0); Mean Corpuscular Volume 83.3 fL (80.0-100.0); Mean Platelet Volume 9.8 fL (9.4-12.4); Monocytes # (auto) 0.14 K/uL (0.24-0.82); Monocytes % (auto) 1.4 %; Neutrophils # (auto) 8.41 K/uL (1.4-6.5); Neutrophils % (auto) 85.4 %; Platelet Count 251 K/uL (130-400); RDW Coefficient of Variation 17.4 % (11.5-14.5); RDW Standard Deviation 52.2 fL (36.4-46.3); Red Blood Count 4.74 M/uL (4.63-6.08); White Blood Count 9.85 K/ul (4.8-10.8)
[2022-10-13 08:10] LABS: INR 2.8 (0.9-1.1)
[2022-10-13 08:39] LABS: Albumin Level 3.3 gm/dl (3.4-5.0); Bilirubin,Total 0.5 mg/dl (0.2-1.0); Calcium 9.5 mg/dl (8.5-10.1); Potassium 4.2 mmol/L (3.5-5.1)
[2022-10-13 08:45] LABS: Albumin Globulin Ratio 0.9 (0.9-2); BUN Creatinine Ratio 12.2 (10-20); Est GFR (African American) 113.4 ml/min; Est GFR (Non-African American) 97.9 ml/min; Globulin 3.6 gm/dl (2.5-4.0); Total Protein 6.9 gm/dl (6.0-8.3)
[2022-10-13] MEDS: FOLIC ACID 1 MG TAB PO SCH (09:04)
[2022-10-13] MEDS: methylPREDNISolone 40 MG in SYRINGE 0 ML IV SCH ×2 (09:04→13:42)
[2022-10-13] MEDS: TAMSULOSIN HCL 0.4 MG CAP PO SCH (09:04)
[2022-10-13] MEDS: FAMOTIDINE 20 MG TAB PO SCH ×2 (09:04→22:04)
[2022-10-13] MEDS: FUROSEMIDE 40 MG/4 ML VIAL IV SCH ×2 (09:04→22:13)
[2022-10-13] MEDS: ISOSORBIDE DINITRATE 10 MG TAB PO SCH (09:04)
[2022-10-13] MEDS: MAGNESIUM HYDROXIDE SUSP 30 ML UDC PO SCH (09:05)
[2022-10-13] MEDS: METOPROLOL SUCC 25MG EXT REL TAB PO SCH ×2 (09:05→23:04)
[2022-10-13] MEDS: MAGNESIUM OXIDE 400 MG TAB PO SCH (09:05)
[2022-10-13] MEDS: guaiFENesin 600 MG TABCR PO SCH ×2 (09:05→22:03)
[2022-10-13] MEDS: POTASSIUM CHLORIDE CRTAB 20 MEQ TABCR PO SCH ×2 (09:05→22:13)
[2022-10-13] MEDS: GABAPENTIN 800 MG TAB PO SCH ×3 (09:05→22:02)
[2022-10-13] MEDS: DOCUSATE SODIUM 100 MG CAP PO SCH ×2 (09:05→22:13)
[2022-10-13] MEDS: ASPIRIN 81 MG ECTAB PO SCH (09:05)
[2022-10-13] MEDS: POLYETHYLENE (MIRALAX) 17 GM PACK PO SCH (09:05)
[2022-10-13] MEDS: DULoxetine HCL 60 MG CAP PO SCH (09:05)
[2022-10-13] MEDS: FERROUS SULFATE 325 MG TAB PO SCH (09:05)
[2022-10-13] MEDS: SPIRONOLACTONE 25 MG TAB PO SCH (09:06)
[2022-10-13] MEDS: NYSTATIN POWDER 15GM BTL EXT PRN (09:06)
[2022-10-13] MEDS: FLUTICASONE PROPIONATE NA SPR 16 GM BTL SCH (09:06)
[2022-10-13] MEDS: ADVANCED PROBIOTIC 1250 MG CAPSULE PO SCH ×3 (09:06→22:05)
[2022-10-13] MEDS: SENNA 8.6 MG TAB PO SCH (09:06)
[2022-10-13] MEDS: UMECLIDINIUM/VILANTEROL 62.5/25MCG 7 PUFFS/INHALER INH SCH (09:07)
[2022-10-13] MEDS: FINASTERIDE 5 MG TAB PO SCH (09:07)
[2022-10-13] MEDS: INSULIN ASPART PER UNIT SC SCH ×4 (09:12→22:06)
[2022-10-13] MEDS: buprenorphine HCL 8 MG SUBL SL SCH ×3 (09:13→22:13)
[2022-10-13] MEDS: LORazepam 0.5 MG TAB PO PRN ×2 (09:13→22:13)
[2022-10-13] MEDS: CYCLOBENZAPRINE HCL 10 MG TAB PO PRN ×2 (09:13→22:12)
--- NOTE | 2022-10-13 13:58 | Hospitalist Progress Note ---
Date of Service October 13, 2022 Assessment & Plan (1) (HFpEF) heart failure with preserved ejection fraction: Plan: Past medical history of morbid obesity, COPD, diastolic heart failure who presents to the hospital with weight gain and shortness of breath. Recently hospitalized due to COPD exacerbation and acute on chronic diastolic heart failure. She reports being compliant to the medication and diet. Chest x-ray shows mild pulmonary edema High-sensitivity troponin negative Plan; - Started on IV Lasix 40 mg twice daily; Holding metolazone for wednesday as UO is assuring. Daily weights Strict input and output monitoring - Continue on Aldactone, metoprolol Cardiology on board; recommend to continue current treatment. (2) COPD (chronic obstructive pulmonary disease): Plan: History of COPD exacerbations in the past Currently no wheeze on examination. Chest x-ray does not show any infiltrates received iv steroid initially; on 20mg for 3 more days. Chronic indwelling Lloyd Catheter Changed Lloyd catheter; change in ED H/O Pulmonary embolism Supratherapeutic INR Coumadin on hold. DM II Last Hb A1C:7.8 Hold home agents Basal/bolus insulin per protocol BSG AC HS Chronic pain syndrome Right foot pain On Suboxone DVT Px: on warfarin PT OT ordered; patient had home physical therapy after getting discharged from the hospital. Patient reports that the cost is too much for him and he is unable to afford. PT OT recommend home with support with family. Patient wants to go to SNF. Admission and Anticipated Discharge Date Admission Date: October 11, 2022 Subjective Patient seen and examined at bedside. Urine output of 7L in last 24 hours. LE edema decreased. Review of Systems Review of Systems: All systems reviewed & are unremarkable except as noted in Subjective Physical Exam Physical Exam: General Appearance:Morbidly Obese, no apparent distress Head: normocephalic, Atraumatic Eyes: normal inspection, EOMI Neck: supple, Trachea midline Respiratory/Chest: Decreased breath sounds at bases; no wheeze. Cardiovascular: S1, S2, No murmur Abdomen/GI:Soft, Non tender, Bowel sounds present Extremities/Musculoskeletal:normal inspection, chronic venous stasis changes. Significant pitting edema present. Neurologic/Psych:AAOX3, grossly no focal neurological deficits Skin: normal color, warm Results & Data Results & Data ([facility]) Vital Signs (Past 12 Hours) Vital Signs Temp Pulse Pulse Resp BP Pulse Ox O2 Del Method 10/13/22 11:19 36.5 C 78 20 157/65 H 91 Nasal Cannula 10/13/22 09:20 Nasal Cannula 10/13/22 10:54 82 16 93 Nasal Cannula 10/13/22 08:00 36.6 C 77 20 132/77 92 Nasal Cannula 10/13/22 07:25 74 16 93 Nasal Cannula 10/13/22 07:15 70 10/13/22 03:00 36.7 C 75 20 137/82 91 Nasal Cannula O2 Flow Rate 10/13/22 11:19 4 10/13/22 09:20 4 10/13/22 10:54 3 10/13/22 08:00 4 10/13/22 07:25 3 10/13/22 07:15 10/13/22 03:00 4 Laboratory Results Laboratory Results WBC 9.85 K/ul (4.8-10.8) 10/13/22 07:45 RBC 4.74 M/uL (4.63-6.08) 10/13/22 07:45 Hgb 12.8 g/dl (14.0-18.0) L 10/13/22 07:45 Hct 39.5 % (40.1-51.0) L 10/13/22 07:45 MCV 83.3 fL (80.0-100.0) 10/13/22 07:45 MCH 27.0 pg (25.0-34.0) 10/13/22 07:45 MCHC 32.4 g/dL (32.0-36.0) 10/13/22 07:45 RDW Std Deviation 52.2 fL (36.4-46.3) H 10/13/22 07:45 RDW Coeff of Megan 17.4 % (11.5-14.5) H 10/13/22 07:45 Plt Count 251 K/uL (130-400) 10/13/22 07:45 MPV 9.8 fL (9.4-12.4) 10/13/22 07:45 Immature Gran % (Auto) 0.5 % 10/13/22 07:45 Neut % (Auto) 85.4 % 10/13/22 07:45 Lymph % (Auto) 12.5 % 10/13/22 07:45 [place] % (Auto) 1.4 % 10/13/22 07:45 Eos % (Auto) 0.1 % 10/13/22 07:45 Baso % (Auto) 0.1 % 10/13/22 07:45 Neut # (Auto) 8.41 K/uL (1.4-6.5) H 10/13/22 07:45 Lymph # (Auto) 1.23 K/uL (1.2-3.4) 10/13/22 07:45 [place] # (Auto) 0.14 K/uL (0.24-0.82) L 10/13/22 07:45 Eos # (Auto) 0.01 K/uL (0-0.50) 10/13/22 07:45 Baso # (Auto) 0.01 K/uL (0-0.2) 10/13/22 07:45 Immature Gran # (Auto) 0.05 K/uL (0.00-0.02) H 10/13/22 07:45 PT 28.0 Seconds (9.0-12.0) H 10/13/22 07:45 INR 2.8 (0.9-1.1) H 10/13/22 07:45 ABG pH 7.43 (7.35-7.45) 10/12/22 21:05 ABG pCO2 59 mmHg (35-46) H 10/12/22 21:05 ABG pO2 77 mmHg (80-95) L 10/12/22 21:05 ABG HCO3 39 mmol/L (19-24) H 10/12/22 21:05 ABG O2 Saturation 97.3 % (90-95) H 10/12/22 21:05 ABG Base Excess 12.3 mEq/L (-9-1.8) H 10/12/22 21:05 Mariano Test Pos (Pos) 10/12/22 21:05 Oxygen Given 3 10/12/22 21:05 Sodium 138 mmol/L (136-145) 10/13/22 07:45 Potassium 4.2 mmol/L (3.5-5.1) 10/13/22 07:45 Chloride 96 mmol/L (98-107) L 10/13/22 07:45 Carbon Dioxide 39 mmol/L (21-32) H 10/13/22 07:45 Anion Gap 3 (3-11) 10/13/22 07:45 BUN 11 mg/dl (6-23) 10/13/22 07:45 Creatinine 0.90 mg/dl (0.6-1.4) 10/13/22 07:45 Est Cr Clr Drug Dosing 173.0 ml/min 10/13/22 07:45 Est GFR ( Amer) 113.4 ml/min 10/13/22 07:45 Est GFR (Non-Af Amer) 97.9 ml/min 10/13/22 07:45 BUN/Creatinine Ratio 12.2 (10-20) 10/13/22 07:45 Glucose 213 mg/dl (70-99(Fasting)) H 10/13/22 07:45 POC Glucose 284 mg/dl (70-99) H 10/13/22 11:46 Estimat Average Glucose 177 mg/dl 10/12/22 05:29 Hemoglobin A1c 7.8 % (4.5-5.6) H 10/12/22 05:29 Calcium 9.5 mg/dl (8.5-10.1) 10/13/22 07:45 Magnesium 1.7 mg/dl (1.7-2.4) 10/12/22 05:29 Total Bilirubin 0.5 mg/dl (0.2-1.0) 10/13/22 07:45 AST 9 U/L (13-39) L 10/13/22 07:45 ALT 15 U/L (7-52) 10/13/22 07:45 Alkaline Phosphatase 95 U/L (34-104) 10/13/22 07:45 Troponin I High Sens 3.4 pg/ml (0-20) 10/11/22 20:08 Total Protein 6.9 gm/dl (6.0-8.3) 10/13/22 07:45 Albumin 3.3 gm/dl (3.4-5.0) L 10/13/22 07:45 Globulin 3.6 gm/dl (2.5-4.0) 10/13/22 07:45 Albumin/Globulin Ratio 0.9 (0.9-2) 10/13/22 07:45 Lipase 6 U/L (11-82) L 10/11/22 00:25 SARS-CoV-2, RNA, NAAT NEGATIVE (NEGATIVE) 10/11/22 03:37 Impressions Chest X-Ray 10/12/22 20:15 XR chest 1V portable CLINICAL HISTORY: Shortness of breath. COMPARISON STUDY: Chest radiograph October 11, 2022. FINDINGS: There is no pneumothorax. Possible trace bilateral pleural effusions are unchanged. Cardiomegaly and pulmonary vascular congestion are similar to toi or exam. The appearance of the chest is unchanged. IMPRESSION: No significant change in appearance of the chest. Pulmonary vascular congestion with trace bilateral pleural effusions. ACT 112: Negative or not required by law. Electronically signed by: Evelio Corbin M.D. 10/12/2022 9:33 PM (1) COPD (chronic obstructive pulmonary disease) COPD type: unspecified COPD Qualified Code(s): J44.9 - Chronic obstructive pulmonary disease, unspecified
[2022-10-13] MEDS: NICOTINE 21 MG/24 HR TDSY TD SCH (22:02)
[2022-10-13] MEDS: ATORVASTATIN 40 MG TAB PO SCH (22:03)
[2022-10-13] MEDS: LANTUS PER UNIT CHARGE SQ SCH (22:07)
[2022-10-14] MEDS: PANTOprazole 40 MG TAB PO SCH (06:01)
[2022-10-14] MEDS: ALBUT/IPRATROP 3MG/0.5MG NEB 3 ML VIAL NEB SCH ×4 (07:24→19:21)
[2022-10-14] MEDS ORDERED: predniSONE 20 MG TAB PO SCH (09:00)
[2022-10-14] MEDS: ISOSORBIDE DINITRATE 10 MG TAB PO SCH (11:28)
[2022-10-14] MEDS: ASPIRIN 81 MG ECTAB PO SCH (11:29)
[2022-10-14] MEDS: ADVANCED PROBIOTIC 1250 MG CAPSULE PO SCH ×3 (11:30→21:36)
[2022-10-14] MEDS: TAMSULOSIN HCL 0.4 MG CAP PO SCH (11:30)
[2022-10-14] MEDS: SENNA 8.6 MG TAB PO SCH (11:30)
[2022-10-14] MEDS: MAGNESIUM OXIDE 400 MG TAB PO SCH (11:31)
[2022-10-14] MEDS: FINASTERIDE 5 MG TAB PO SCH (11:31)
[2022-10-14] MEDS: FOLIC ACID 1 MG TAB PO SCH (11:31)
[2022-10-14] MEDS: SPIRONOLACTONE 25 MG TAB PO SCH (11:31)
[2022-10-14] MEDS: FERROUS SULFATE 325 MG TAB PO SCH (11:31)
[2022-10-14] MEDS: DULoxetine HCL 60 MG CAP PO SCH (11:31)
[2022-10-14] MEDS: METOPROLOL SUCC 25MG EXT REL TAB PO SCH ×2 (11:32→21:34)
[2022-10-14] MEDS: guaiFENesin 600 MG TABCR PO SCH (11:32)
[2022-10-14] MEDS: GABAPENTIN 800 MG TAB PO SCH ×3 (11:32→21:35)
[2022-10-14] MEDS: UMECLIDINIUM/VILANTEROL 62.5/25MCG 7 PUFFS/INHALER INH SCH (11:33)
[2022-10-14] MEDS: FLUTICASONE PROPIONATE NA SPR 16 GM BTL SCH (11:33)
[2022-10-14] MEDS: LORazepam 0.5 MG TAB PO PRN ×2 (11:39→21:32)
[2022-10-14] MEDS: DOCUSATE SODIUM 100 MG CAP PO SCH ×2 (11:39→21:45)
[2022-10-14] MEDS: POTASSIUM CHLORIDE CRTAB 20 MEQ TABCR PO SCH ×2 (11:39→21:38)
[2022-10-14] MEDS: MAGNESIUM HYDROXIDE SUSP 30 ML UDC PO SCH (11:40)
[2022-10-14] MEDS: FUROSEMIDE 40 MG/4 ML VIAL IV SCH ×2 (11:40→21:45)
[2022-10-14] MEDS: buprenorphine HCL 8 MG SUBL SL SCH ×3 (11:43→21:32)
[2022-10-14] MEDS: POLYETHYLENE (MIRALAX) 17 GM PACK PO SCH (11:43)
[2022-10-14 12:28] LABS: Basophils # (auto) 0.04 K/uL (0-0.2); Basophils % (auto) 0.2 %; Eosinophils # (auto) 0.03 K/uL (0-0.50); Eosinophils % (auto) 0.2 %; Hemoglobin 12.9 g/dl (14.0-18.0); Immature Granulocytes # (auto) 0.08 K/uL (0.00-0.02); Immature Granulocytes % (auto) 0.5 %; Lymphocytes # (auto) 3.34 K/uL (1.2-3.4); Lymphocytes % (auto) 20.7 %; Mean Corpuscular Hemoglobin 27.3 pg (25.0-34.0); Mean Corpuscular Hgb Conc 32.3 g/dL (32.0-36.0); Mean Corpuscular Volume 84.6 fL (80.0-100.0); Mean Platelet Volume 10.2 fL (9.4-12.4); Monocytes # (auto) 0.85 K/uL (0.24-0.82); Monocytes % (auto) 5.3 %; Neutrophils # (auto) 11.81 K/uL (1.4-6.5); Neutrophils % (auto) 73.1 %; Platelet Count 269 K/uL (130-400); RDW Coefficient of Variation 17.6 % (11.5-14.5); RDW Standard Deviation 53.9 fL (36.4-46.3); Red Blood Count 4.73 M/uL (4.63-6.08); White Blood Count 16.15 K/ul (4.8-10.8)
[2022-10-14] MEDS: INSULIN ASPART PER UNIT SC SCH ×4 (12:29→21:29)
[2022-10-14 12:31] LABS: Albumin Level 3.4 gm/dl (3.4-5.0); BUN Creatinine Ratio 20.2 (10-20); Bilirubin,Total 0.4 mg/dl (0.2-1.0); Calcium 9.7 mg/dl (8.5-10.1); Creatinine Clr Calc Pharmacy 183.3 ml/min; Est GFR (African American) 116.7 ml/min; Est GFR (Non-African American) 100.7 ml/min; Globulin 3.5 gm/dl (2.5-4.0); Potassium 3.7 mmol/L (3.5-5.1); Total Protein 6.9 gm/dl (6.0-8.3)
[2022-10-14 13:11] LABS: Prothrombin Time 20.6 Seconds (9.0-12.0)
[2022-10-14] MEDS: ACETAMINOPHEN 1,000 MG/100 ML VIAL IV PRN (13:52)
--- NOTE | 2022-10-14 14:53 | Hospitalist Progress Note ---
Date of Service October 14, 2022 Assessment & Plan (1) (HFpEF) heart failure with preserved ejection fraction: Plan: Past medical history of morbid obesity, COPD, diastolic heart failure who presents to the hospital with weight gain and shortness of breath. Recently hospitalized due to COPD exacerbation and acute on chronic diastolic heart failure. She reports being compliant to the medication and diet. Chest x-ray shows mild pulmonary edema High-sensitivity troponin negative Plan; - Started on IV Lasix 40 mg twice daily; resume metolazone. negative balance of 14L since admission. Daily weights Strict input and output monitoring - Continue on Aldactone, metoprolol Cardiology on board; recommend to continue current treatment. (2) COPD (chronic obstructive pulmonary disease): Plan: History of COPD exacerbations in the past Currently no wheeze on examination. Chest x-ray does not show any infiltrates received iv steroid initially; on 20mg for 3 more days. Chronic indwelling Lloyd Catheter Changed Lloyd catheter; change in ED H/O Pulmonary embolism Resume coumadin DM II Last Hb A1C:7.8 Hold home agents Basal/bolus insulin per protocol BSG AC HS Chronic pain syndrome Right foot pain On Suboxone DVT Px: on warfarin PT OT ordered; patient had home physical therapy after getting discharged from the hospital. Patient reports that the cost is too much for him and he is unable to afford. PT OT recommend home with support with family. Patient wants to go to SNF. CM on board Admission and Anticipated Discharge Date Admission Date: October 11, 2022 Subjective Patient seen and examined at bedside. He reports that his breathing is slightly better compared to presentation. He continues to report weakness and fatigue. Review of Systems Review of Systems: All systems reviewed & are unremarkable except as noted in Subjective Physical Exam Physical Exam: General Appearance:Morbidly Obese, no apparent distress Head: normocephalic, Atraumatic Eyes: normal inspection, EOMI Neck: supple, Trachea midline Respiratory/Chest: Decreased breath sounds at bases; no wheeze. Cardiovascular: S1, S2, No murmur Abdomen/GI:Soft, Non tender, Bowel sounds present Extremities/Musculoskeletal:normal inspection, chronic venous stasis changes. Significant pitting edema present; improved compared to admission. Neurologic/Psych:AAOX3, grossly no focal neurological deficits Skin: normal color, warm Results & Data Results & Data ([facility]) Vital Signs (Past 12 Hours) Vital Signs Temp Pulse Pulse Resp BP Pulse Ox O2 Del Method 10/14/22 11:50 80 16 97 Nasal Cannula 10/14/22 11:25 36.4 C L 84 20 161/70 H 96 Nasal Cannula 10/14/22 08:14 36.3 C L 72 19 141/73 H 96 Nasal Cannula 10/14/22 07:25 75 18 95 Nasal Cannula 10/14/22 07:20 66 10/14/22 03:47 36.5 C 78 20 148/76 H 95 Nasal Cannula O2 Flow Rate 10/14/22 11:50 4 10/14/22 11:25 4 10/14/22 08:14 4 10/14/22 07:25 4 10/14/22 07:20 10/14/22 03:47 4 Laboratory Results Laboratory Results WBC 16.15 K/ul (4.8-10.8) H 10/14/22 11:48 RBC 4.73 M/uL (4.63-6.08) 10/14/22 11:48 Hgb 12.9 g/dl (14.0-18.0) L 10/14/22 11:48 Hct 40.0 % (40.1-51.0) L 10/14/22 11:48 MCV 84.6 fL (80.0-100.0) 10/14/22 11:48 MCH 27.3 pg (25.0-34.0) 10/14/22 11:48 MCHC 32.3 g/dL (32.0-36.0) 10/14/22 11:48 RDW Std Deviation 53.9 fL (36.4-46.3) H 10/14/22 11:48 RDW Coeff of Megan 17.6 % (11.5-14.5) H 10/14/22 11:48 Plt Count 269 K/uL (130-400) 10/14/22 11:48 MPV 10.2 fL (9.4-12.4) 10/14/22 11:48 Immature Gran % (Auto) 0.5 % 10/14/22 11:48 Neut % (Auto) 73.1 % 10/14/22 11:48 Lymph % (Auto) 20.7 % 10/14/22 11:48 Ransom % (Auto) 5.3 % 10/14/22 11:48 Eos % (Auto) 0.2 % 10/14/22 11:48 Baso % (Auto) 0.2 % 10/14/22 11:48 Neut # (Auto) 11.81 K/uL (1.4-6.5) H 10/14/22 11:48 Lymph # (Auto) 3.34 K/uL (1.2-3.4) 10/14/22 11:48 Ransom # (Auto) 0.85 K/uL (0.24-0.82) H 10/14/22 11:48 Eos # (Auto) 0.03 K/uL (0-0.50) 10/14/22 11:48 Baso # (Auto) 0.04 K/uL (0-0.2) 10/14/22 11:48 Immature Gran # (Auto) 0.08 K/uL (0.00-0.02) H 10/14/22 11:48 PT 20.6 Seconds (9.0-12.0) H 10/14/22 11:48 INR 2.0 (0.9-1.1) H 10/14/22 11:48 ABG pH 7.43 (7.35-7.45) 10/12/22 21:05 ABG pCO2 59 mmHg (35-46) H 10/12/22 21:05 ABG pO2 77 mmHg (80-95) L 10/12/22 21:05 ABG HCO3 39 mmol/L (19-24) H 10/12/22 21:05 ABG O2 Saturation 97.3 % (90-95) H 10/12/22 21:05 ABG Base Excess 12.3 mEq/L (-9-1.8) H 10/12/22 21:05 Mariano Test Pos (Pos) 10/12/22 21:05 Oxygen Given 3 10/12/22 21:05 Sodium 137 mmol/L (136-145) 10/14/22 11:48 Potassium 3.7 mmol/L (3.5-5.1) 10/14/22 11:48 Chloride 93 mmol/L (98-107) L 10/14/22 11:48 Carbon Dioxide 41 mmol/L (21-32) H* 10/14/22 11:48 Anion Gap 3 (3-11) 10/14/22 11:48 BUN 17 mg/dl (6-23) 10/14/22 11:48 Creatinine 0.84 mg/dl (0.6-1.4) 10/14/22 11:48 Est Cr Clr Drug Dosing 183.3 ml/min 10/14/22 11:48 Est GFR ( Amer) 116.7 ml/min 10/14/22 11:48 Est GFR (Non-Af Amer) 100.7 ml/min 10/14/22 11:48 BUN/Creatinine Ratio 20.2 (10-20) H 10/14/22 11:48 Glucose 232 mg/dl (70-99(Fasting)) H 10/14/22 11:48 POC Glucose 264 mg/dl (70-99) H 10/14/22 11:30 Estimat Average Glucose 177 mg/dl 10/12/22 05:29 Hemoglobin A1c 7.8 % (4.5-5.6) H 10/12/22 05:29 Calcium 9.7 mg/dl (8.5-10.1) 10/14/22 11:48 Magnesium 1.7 mg/dl (1.7-2.4) 10/12/22 05:29 Total Bilirubin 0.4 mg/dl (0.2-1.0) 10/14/22 11:48 AST 9 U/L (13-39) L 10/14/22 11:48 ALT 11 U/L (7-52) 10/14/22 11:48 Alkaline Phosphatase 85 U/L (34-104) 10/14/22 11:48 Troponin I High Sens 3.4 pg/ml (0-20) 10/11/22 20:08 Total Protein 6.9 gm/dl (6.0-8.3) 10/14/22 11:48 Albumin 3.4 gm/dl (3.4-5.0) 10/14/22 11:48 Globulin 3.5 gm/dl (2.5-4.0) 10/14/22 11:48 Albumin/Globulin Ratio 1.0 (0.9-2) 10/14/22 11:48 Lipase 6 U/L (11-82) L 10/11/22 00:25 SARS-CoV-2, RNA, NAAT NEGATIVE (NEGATIVE) 10/11/22 03:37 Impressions Chest X-Ray 10/12/22 20:15 XR chest 1V portable CLINICAL HISTORY: Shortness of breath. COMPARISON STUDY: Chest radiograph October 11, 2022. FINDINGS: There is no pneumothorax. Possible trace bilateral pleural effusions are unchanged. Cardiomegaly and pulmonary vascular congestion are similar to prior exam. The appearance of the chest is unchanged. IMPRESSION: No significant change in appearance of the chest. Pulmonary vascular congestion with trace bilateral pleural effusions. ACT 112: Negative or not required by law. Electronically signed by: Evelio Corbin M.D. 10/12/2022 9:33 PM (1) COPD (chronic obstructive pulmonary disease) COPD type: unspecified COPD Qualified Code(s): J44.9 - Chronic obstructive pulmonary disease, unspecified
[2022-10-14] MEDS: WARFARIN SOD 2.5 MG TAB PO SCH (17:12)
[2022-10-14] MEDS: BENZONATATE 100 MG CAPSULE PO PRN (17:15)
[2022-10-14] MEDS: LANTUS PER UNIT CHARGE SQ SCH (21:30)
[2022-10-14] MEDS: CYCLOBENZAPRINE HCL 10 MG TAB PO PRN (21:32)
[2022-10-14] MEDS: NICOTINE 21 MG/24 HR TDSY TD SCH (21:35)
[2022-10-14] MEDS: ATORVASTATIN 40 MG TAB PO SCH (21:37)
[2022-10-15] MEDS: ACETAMINOPHEN 1,000 MG/100 ML VIAL IV PRN ×2 (02:20→15:30)
[2022-10-15] MEDS: guaiFENesin SUGAR FREE 200 MG/10 ML UDC PO PRN ×3 (06:08→18:03)
[2022-10-15] MEDS: PANTOprazole 40 MG TAB PO SCH (06:08)
[2022-10-15] MEDS: SODIUM CHLORIDE 0.65% NA SOLN 45 ML (OCEAN) PRN (06:09)
[2022-10-15] MEDS: ALBUT/IPRATROP 3MG/0.5MG NEB 3 ML VIAL NEB SCH ×4 (07:06→19:44)
[2022-10-15 08:19] LABS: INR 1.6 (0.9-1.1); Prothrombin Time 16.9 Seconds (9.0-12.0)
[2022-10-15] MEDS: FLUTICASONE PROPIONATE NA SPR 16 GM BTL SCH (08:34)
[2022-10-15] MEDS: ADVANCED PROBIOTIC 1250 MG CAPSULE PO SCH ×3 (08:34→21:33)
[2022-10-15] MEDS: TAMSULOSIN HCL 0.4 MG CAP PO SCH (08:35)
[2022-10-15] MEDS: ASPIRIN 81 MG ECTAB PO SCH (08:35)
[2022-10-15] MEDS: ISOSORBIDE DINITRATE 10 MG TAB PO SCH (08:35)
[2022-10-15] MEDS: METOPROLOL SUCC 25MG EXT REL TAB PO SCH ×2 (08:36→21:35)
[2022-10-15] MEDS: SPIRONOLACTONE 25 MG TAB PO SCH (08:36)
[2022-10-15] MEDS: FOLIC ACID 1 MG TAB PO SCH (08:36)
[2022-10-15] MEDS: DULoxetine HCL 60 MG CAP PO SCH (08:36)
[2022-10-15] MEDS: FINASTERIDE 5 MG TAB PO SCH (08:36)
[2022-10-15] MEDS: SENNA 8.6 MG TAB PO SCH (08:36)
[2022-10-15] MEDS: FAMOTIDINE 20 MG TAB PO SCH (08:37)
[2022-10-15] MEDS: MAGNESIUM OXIDE 400 MG TAB PO SCH (08:37)
[2022-10-15] MEDS: GABAPENTIN 800 MG TAB PO SCH ×3 (08:37→21:35)
[2022-10-15] MEDS: FERROUS SULFATE 325 MG TAB PO SCH (08:38)
[2022-10-15] MEDS: UMECLIDINIUM/VILANTEROL 62.5/25MCG 7 PUFFS/INHALER INH SCH (08:38)
[2022-10-15] MEDS: NYSTATIN POWDER 15GM BTL EXT PRN (08:38)
[2022-10-15] MEDS: FUROSEMIDE 40 MG/4 ML VIAL IV SCH ×2 (08:47→21:32)
[2022-10-15] MEDS: MAGNESIUM HYDROXIDE SUSP 30 ML UDC PO SCH (08:47)
[2022-10-15] MEDS: POLYETHYLENE (MIRALAX) 17 GM PACK PO SCH (08:47)
[2022-10-15] MEDS: BENZONATATE 100 MG CAPSULE PO PRN (08:47)
[2022-10-15] MEDS: POTASSIUM CHLORIDE CRTAB 20 MEQ TABCR PO SCH ×2 (08:47→21:39)
[2022-10-15] MEDS: buprenorphine HCL 8 MG SUBL SL SCH ×3 (08:47→20:28)
[2022-10-15] MEDS: INSULIN ASPART PER UNIT SC SCH ×4 (08:48→21:29)
[2022-10-15] MEDS: DOCUSATE SODIUM 100 MG CAP PO SCH ×2 (08:48→21:39)
[2022-10-15 10:10] LABS: BUN Creatinine Ratio 26.3 (10-20); Calcium 9.7 mg/dl (8.5-10.1); Creatinine Clr Calc Pharmacy 192.4 ml/min; Est GFR (Non-African American) 102.7 ml/min; Potassium 3.7 mmol/L (3.5-5.1)
[2022-10-15] MEDS ORDERED: PHARMACY GLYCEMIC MGMT CONSULT PRN (11:04)
[2022-10-15] MEDS ORDERED: LANTUS PER UNIT CHARGE SQ ONE (11:45)
[2022-10-15] MEDS: DOXYCYCLINE HYCLATE 100 MG CAP PO SCH ×2 (12:05→21:36)
[2022-10-15] MEDS: methylPREDNISolone 40 MG in SYRINGE 0 ML IV SCH ×2 (12:05→21:36)
--- NOTE | 2022-10-15 12:09 | XRay Report ---
XR chest 1V portable HISTORY: 52 years-old Male cough, r/o pneumonia acute cough COMPARISON: Chest radiograph October 12, 2022 TECHNIQUE: AP view of the chest FINDINGS: Cardiac silhouette is enlarged. Pulmonary vascular congestion with trace pleural effusions redemonstr ated. Mild left lung base opacities are similar to prior. Bones appear grossly intact. IMPRESSION: 1. Cardiomegaly with pulmonary vascular congestion and trace pleural effusions redemonstrated. 2. Mild left basilar opacities favor atelectasis. A mild pneumonitis could appear similarly. ACT 112: Negative or not required by law. The above report was generated using voice recognition software. It may contain grammatical, syntax o r spelling errors. Electronically signed by: Shelton Apodaca M.D. 10/15/2022 12:08 PM
[2022-10-15 13:19] LABS: Adenovirus PCR Not Detected (NotDetected); Bordetella parapertussis PCR Not Detected (NotDetected); Bordetella pertussis PCR Not Detected (NotDetected); Chlamydia pneumoniae PCR Not Detected (NotDetected); Coronavirus 229E PCR Not Detected (NotDetected); Coronavirus CoV-2 (COVID19)PCR Not Detected (NotDetected); Coronavirus NL63 PCR Not Detected (NotDetected); Coronavirus OC43PCR Not Detected (NotDetected); Human Metapneumovirus PCR Not Detected (NotDetected); Influenza A PCR Not Detected (NotDetected); Influenza B PCR Not Detected (NotDetected); Mycoplasma pneumoniae PCR Not Detected (NotDetected); Parainfluenza Virus 1 PCR Not Detected (NotDetected); Parainfluenza Virus 2 PCR Not Detected (NotDetected); Parainfluenza Virus 3 PCR Not Detected (NotDetected); Parainfluenza Virus 4 PCR Not Detected (NotDetected); Respiratory Syncytial VirusPCR Not Detected (NotDetected); Rhinovirus/Enterovirus PCR Not Detected (NotDetected)
[2022-10-15 13:21] LABS: Coronavirus HKU1 PCR DETECTED (NotDetected)
--- NOTE | 2022-10-15 13:25 | Hospitalist Progress Note ---
Date of Service October 15, 2022 Assessment & Plan (1) (HFpEF) heart failure with preserved ejection fraction: Plan: per Dr. Rojas's notes with addendum: Past medical history of morbid obesity, COPD, diastolic heart failure who presents to the hospital with weight gain and shortness of breath. Recently hospitalized due to COPD exacerbation and acute on chronic diastolic heart failure. She reports being compliant to the medication and diet. Chest x-ray shows mild pulmonary edema High-sensitivity troponin negative Plan; - Started on IV Lasix 40 mg twice daily; resume metolazone. negative balance of 14L since admission. Daily weights Strict input and output monitoring - Continue on Aldactone, metoprolol Cardiology on board; recommend to continue current treatment. 10/15 negative 16L so far CXR: 1. Cardiomegaly with pulmonary vascular congestion and trace pleural effusions redemonstrated. 2. Mild left basilar opacities favor atelectasis. A mild pneumonitis could appear similarly. continue with Lasix 40mg IV BID (2) COPD (chronic obstructive pulmonary disease): Plan: History of COPD exacerbations in the past Currently no wheeze on examination. Chest x-ray does not show any infiltrates received iv steroid initially; on 20mg for 3 more days. 10/15 (+) exacerbation on 4 L O2, (+) wheezing CXR per above respiratory panel: pending added Doxycycline 100mg BID Day 1 start Solumedrol 40mg IV BID Glycemic control consult Duoneb QID Incentive spirometry Chronic indwelling Lloyd Catheter Changed Lloyd catheter; change in ED H/O Pulmonary embolism INR 1.7 on coumadin INR daily DM II Last Hb A1C:7.8 Hold home agents Basal/bolus insulin per protocol BSG AC HS Chronic pain syndrome Right foot pain On Suboxone DVT Px: on warfarin PT OT ordered; patient had home physical therapy after getting discharged from the hospital. Patient reports that the cost is too much for him and he is unable to afford. PT OT recommend home with support with family. Patient wants to go to SNF. CM on board Disposition pending plan of care discussed with patient in detail and at length all questions answered he is understanding, agreeable, comfortable with the plan of care Admission and Anticipated Discharge Date Admission Date: October 11, 2022 Subjective ff up for CHF exacerbation, etc seen resting in bed, not in distress on 4 L nasal cannula states breathing is about the same has occasional productive cough leg swelling about the same as per patient no other new symptoms Review of Systems Review of Systems: all noted and negative except for above Physical Exam Physical Exam: General- oriented x 3, not in distress, speaks in sentences with no effort or accessory muscle use Eyes- anicteric Neck- no JVD Lungs- positive mild-moderate wheeze BL no crackles/wheezing Heart- normal rate, regular rhythm; no murmurs Abdomen- normal bowel sounds, nondistended, soft, nontender Extremities-grade 2 lower extremity edema, no calf tenderness Neuro- alert, oriented x 3; no gross focal neurologic deficits Skin- warm & dry Results & Data Results & Data ([facility]) Vital Signs (Past 12 Hours) Vital Signs Temp Pulse Pulse Resp BP Pulse Ox O2 Del Method 10/15/22 08:45 Nasal Cannula 10/15/22 10:35 78 16 94 Nasal Cannula 10/15/22 10:03 76 10/15/22 07:47 36.4 C L 69 20 146/73 H 98 Nasal Cannula 10/15/22 07:06 69 18 97 Nasal Cannula 10/15/22 02:10 36.6 C 75 20 132/65 96 Nasal Cannula O2 Flow Rate 10/15/22 08:45 4 10/15/22 10:35 3 10/15/22 10:03 10/15/22 07:47 4 10/15/22 07:06 4 10/15/22 02:10 4 all noted and reviewed including below (1) COPD (chronic obstructive pulmonary disease) COPD type: unspecified COPD Qualified Code(s): J44.9 - Chronic obstructive pulmonary disease, unspecified
[2022-10-15] MEDS ORDERED: ALBUTEROL HFA 8 GM INHALER INH PRN (14:03)
--- NOTE | 2022-10-15 14:34 | Pharmacy Report ---
Pharmacy Glycemic Short Note 2 - Date of Service October 15, 2022 - Glycemic Short BSG Results (Last 24 hours): 10/14/22 10/14/22 10/15/22 16:30 20:36 07:31 Glucose POC Glucose 241 H 269 H 158 H 10/15/22 10/15/22 09:27 11:35 Glucose 218 H POC Glucose 197 H OUTPATIENT ANTIDIABETIC REGIMEN: * glipizide, Lantus 50 units HS, Novolog SSI ASSESSMENT: * 52 year old admitted with shortness of breath started on steroids. Type 2 diabetic, pharmacy consulted. Patient known to glycemic service from last admission. At that time when he was on solumedrol 40 mg iv bid he was requiring 200-300 units of insulin per day. Basal insulin was ~100 units while on steroids * Solumedrol starting today at lunch time - BSG at time of consult 197 mg/dL. Plan to give PM 50 units of basal insulin now and will provide scale for HS to help cover ongoing steroids * Will add on overnight checks to determine insulin needs PLAN FOR INPATIENT GLYCEMIC CONTROL: * Hold outpatient oral diabetes medications * Basal insulin * Lantus 50 units x 1 * Lantus 10-30 units HS based upon BSG value * Bolus insulin * NovoLog per scale ACHS or Q6hrs while NPO * Goal Range: Low 120 mg/dL - High 150 mg/dL * Correction Factor: 10 mg/dL/unit * Nutritional / Prandial insulin per carb ratio of 1 unit per 4 grams CHO consumed
[2022-10-15] MEDS: WARFARIN SOD 2.5 MG TAB PO SCH (15:29)
[2022-10-15] MEDS ORDERED: LANTUS PER UNIT CHARGE SQ SCH (21:00)
[2022-10-15] MEDS: CYCLOBENZAPRINE HCL 10 MG TAB PO PRN (21:32)
[2022-10-15] MEDS: LORazepam 0.5 MG TAB PO PRN (21:32)
[2022-10-15] MEDS: ATORVASTATIN 40 MG TAB PO SCH (21:34)
[2022-10-15] MEDS: NICOTINE 21 MG/24 HR TDSY TD SCH (21:36)
[2022-10-16] MEDS: INSULIN ASPART PER UNIT SC SCH ×6 (00:25→21:07)
[2022-10-16] MEDS: PANTOprazole 40 MG TAB PO SCH (05:31)
[2022-10-16] MEDS: ALBUT/IPRATROP 3MG/0.5MG NEB 3 ML VIAL NEB SCH ×4 (07:14→19:59)
[2022-10-16] MEDS: CYCLOBENZAPRINE HCL 10 MG TAB PO PRN ×2 (08:37→21:14)
[2022-10-16] MEDS: LORazepam 0.5 MG TAB PO PRN ×2 (08:37→21:14)
[2022-10-16] MEDS: GABAPENTIN 800 MG TAB PO SCH ×3 (08:38→21:19)
[2022-10-16 08:39] LABS: INR 1.5 (0.9-1.1); Prothrombin Time 15.3 Seconds (9.0-12.0)
[2022-10-16] MEDS: DOXYCYCLINE HYCLATE 100 MG CAP PO SCH ×2 (08:39→21:19)
[2022-10-16] MEDS: SENNA 8.6 MG TAB PO SCH (08:39)
[2022-10-16] MEDS: METOPROLOL SUCC 25MG EXT REL TAB PO SCH ×2 (08:39→21:15)
[2022-10-16] MEDS: TAMSULOSIN HCL 0.4 MG CAP PO SCH (08:40)
[2022-10-16] MEDS: FOLIC ACID 1 MG TAB PO SCH (08:40)
[2022-10-16] MEDS: FAMOTIDINE 20 MG TAB PO SCH (08:41)
[2022-10-16] MEDS: ISOSORBIDE DINITRATE 10 MG TAB PO SCH (08:41)
[2022-10-16] MEDS: ADVANCED PROBIOTIC 1250 MG CAPSULE PO SCH ×3 (08:41→21:18)
[2022-10-16] MEDS: DULoxetine HCL 60 MG CAP PO SCH (08:41)
[2022-10-16] MEDS: ASPIRIN 81 MG ECTAB PO SCH (08:42)
[2022-10-16] MEDS: MAGNESIUM OXIDE 400 MG TAB PO SCH (08:42)
[2022-10-16] MEDS: FERROUS SULFATE 325 MG TAB PO SCH (08:42)
[2022-10-16] MEDS: SPIRONOLACTONE 25 MG TAB PO SCH (08:42)
[2022-10-16] MEDS: FINASTERIDE 5 MG TAB PO SCH (08:42)
[2022-10-16] MEDS: metOLazone 2.5 MG TABLET PO SCH (08:43)
[2022-10-16] MEDS: buprenorphine HCL 8 MG SUBL SL SCH ×3 (08:43→20:49)
[2022-10-16] MEDS: methylPREDNISolone 40 MG in SYRINGE 0 ML IV SCH ×2 (08:43→21:09)
[2022-10-16] MEDS: DOCUSATE SODIUM 100 MG CAP PO SCH ×2 (08:44→21:19)
[2022-10-16] MEDS: UMECLIDINIUM/VILANTEROL 62.5/25MCG 7 PUFFS/INHALER INH SCH (08:45)
[2022-10-16] MEDS: FLUTICASONE PROPIONATE NA SPR 16 GM BTL SCH (08:45)
[2022-10-16] MEDS: ACETAMINOPHEN 1,000 MG/100 ML VIAL IV PRN ×2 (09:02→21:12)
[2022-10-16] MEDS: MAGNESIUM HYDROXIDE SUSP 30 ML UDC PO SCH (09:02)
[2022-10-16] MEDS: POTASSIUM CHLORIDE CRTAB 20 MEQ TABCR PO SCH ×2 (09:02→21:14)
[2022-10-16] MEDS: FUROSEMIDE 40 MG/4 ML VIAL IV SCH ×2 (09:03→21:09)
[2022-10-16] MEDS: POLYETHYLENE (MIRALAX) 17 GM PACK PO SCH (09:26)
[2022-10-16 09:35] LABS: Calcium 10.1 mg/dl (8.5-10.1); Potassium 4.2 mmol/L (3.5-5.1)
[2022-10-16 09:41] LABS: BUN Creatinine Ratio 29.2 (10-20); Creatinine Clr Calc Pharmacy 215.2 ml/min; Est GFR (African American) 124.3 ml/min; Est GFR (Non-African American) 107.3 ml/min
--- NOTE | 2022-10-16 11:01 | Pharmacy Report ---
Pharmacy Glycemic Short Note 2 - Date of Service October 16, 2022 - Glycemic Short BSG Results (Last 24 hours): 10/15/22 10/15/22 10/15/22 11:35 16:24 20:45 Glucose POC Glucose 197 H 170 H 316 H* 10/15/22 10/16/22 10/16/22 20:46 00:08 03:59 Glucose POC Glucose 340 H* 233 H 206 H 10/16/22 10/16/22 07:44 08:31 Glucose 169 H POC Glucose 152 H OUTPATIENT ANTIDIABETIC REGIMEN: * glipizide, Lantus 50 units HS, Novolog SSI ASSESSMENT: 10/16 * Patient received total of 221 units of insulin yesterday, of which 150 units were basal insulin. * Scale for basal insulin had been ordered at HS time last evening, verified with RN/patient that he was given 100 units of basal last night which was different from ordered dose. RN had incorrectly interpreted insulin order. * Fasting BSG 152 mg/dL - loosened novolog parameters this morning since larger dose given then what was ordered. Patient on ongoing steroids, so will trend BSGs rest of day * Likely could resume Lantus 50 units bid starting tonight as long as BSGs stable today 10/15 * 52 year old admitted with shortness of breath started on steroids. Type 2 diabetic, pharmacy consulted. Patient known to glycemic service from last admission. At that time when he was on solumedrol 40 mg iv bid he was requiring 200-300 units of insulin per day. Basal insulin was ~100 units while on steroids * Solumedrol starting today at lunch time - BSG at time of consult 197 mg/dL. Plan to give PM 50 units of basal insulin now and will provide scale for HS to help cover ongoing steroids * Will add on overnight checks to determine insulin needs PLAN FOR INPATIENT GLYCEMIC CONTROL: * Hold outpatient oral diabetes medications * Basal insulin * Lantus 50 units bid * Bolus insulin * NovoLog per scale ACHS or Q6hrs while NPO * Goal Range: Low 120 mg/dL - High 150 mg/dL * Correction Factor: 10 mg/dL/unit * Nutritional / Prandial insulin per carb ratio of 1 unit per 4 grams CHO consumed
--- NOTE | 2022-10-16 13:33 | Hospitalist Progress Note ---
Date of Service October 16, 2022 Assessment & Plan (1) (HFpEF) heart failure with preserved ejection fraction: Plan: per Dr. Rojas's notes with addendum: Past medical history of morbid obesity, COPD, diastolic heart failure who presents to the hospital with weight gain and shortness of breath. Recently hospitalized due to COPD exacerbation and acute on chronic diastolic heart failure. She reports being compliant to the medication and diet. Chest x-ray shows mild pulmonary edema High-sensitivity troponin negative Plan; - Started on IV Lasix 40 mg twice daily; resume metolazone. negative balance of 14L since admission. Daily weights Strict input and output monitoring - Continue on Aldactone, metoprolol Cardiology on board; recommend to continue current treatment. 10/16 CXR: 1. Cardiomegaly with pulmonary vascular congestion and trace pleural effusions redemonstrated. 2. Mild left basilar opacities favor atelectasis. A mild pneumonitis could appear similarly. negative 22 L fluid balance discussed regarding fluid restriction with patient he is agreeable continue with Lasix 40mg IV BID (2) COPD (chronic obstructive pulmonary disease): Plan: History of COPD exacerbations in the past Currently no wheeze on examination. Chest x-ray does not show any infiltrates received iv steroid initially; on 20mg for 3 more days. 10/16 (+) exacerbation on 4 L O2, (+) wheezing CXR per above respiratory panel: (+) Coronavirus - not COVID sputum culture: pending continue Doxycycline 100mg BID Day 2 Solumedrol 40mg IV BID Glycemic control consult Duoneb QID Incentive spirometry Chronic indwelling Lloyd Catheter Changed Lloyd catheter; change in ED H/O Pulmonary embolism INR 1.5 increase coumadin today to 2mg INR daily DM II Last Hb A1C:7.8 Hold home agents Basal/bolus insulin per protocol BSG AC HS Glycemic control pharmacist consulted Chronic pain syndrome Right foot pain On Suboxone DVT Px: on warfarin PT OT ordered; patient had home physical therapy after getting discharged from the hospital. Patient reports that the cost is too much for him and he is unable to afford. PT OT recommend home with support with family. Patient wants to go to SNF. CM on board Disposition pending plan of care discussed with patient in detail and at length all questions answered he is understanding, agreeable, comfortable with the plan of care Admission and Anticipated Discharge Date Admission Date: October 11, 2022 Subjective ff up for acute chf, copd exacerbation, etc seen resting in bed, comfortable on 4 L NC states he feels about the same as yesterday feels week having occasional productive cough no chest pain, dyspnea, palpitations, dizziness no leg pain no other symptoms Review of Systems Review of Systems: General- oriented x 3, not in distress, speaks in sentences with no effort or accessory muscle use Eyes- anicteric Neck- no JVD Lungs- (+) mild-moderate wheeze BL with occasional rales good air entry BL Heart- normal rate, regular rhythm; no murmurs Abdomen- normal bowel sounds, nondistended, soft, nontender Extremities- grade 1-2 lower extremity edema, no calf tenderness Neuro- alert, oriented x 3; no gross focal neurologic deficits Skin- warm & dry Physical Exam Physical Exam: all noted and negative except for above Results & Data Results & Data ([facility]) Vital Signs (Past 12 Hours) Vital Signs Temp Pulse Pulse Resp BP Pulse Ox O2 Del Method 10/16/22 11:48 36.7 C 76 18 123/68 93 Nasal Cannula 10/16/22 10:45 72 18 92 Nasal Cannula 10/16/22 11:00 Nasal Cannula 10/16/22 06:00 55 L 10/16/22 07:46 36.6 C 67 18 135/84 95 Nasal Cannula 10/16/22 07:15 64 16 97 Nasal Cannula 10/16/22 03:53 36.6 C 70 18 148/74 H 94 Nasal Cannula O2 Flow Rate 10/16/22 11:48 4 10/16/22 10:45 4 10/16/22 11:00 10/16/22 06:00 10/16/22 07:46 3 10/16/22 07:15 4 10/16/22 03:53 4 all noted and reviewed including below (1) COPD (chronic obstructive pulmonary disease) COPD type: unspecified COPD Qualified Code(s): J44.9 - Chronic obstructive pulmonary disease, unspecified
[2022-10-16] MEDS ORDERED: WARFARIN SOD 5 MG TAB PO SCH (16:00)
[2022-10-16] MEDS ORDERED: LANTUS PER UNIT CHARGE SQ SCH ×2 (21:00)
[2022-10-16] MEDS: LANTUS PER UNIT CHARGE SQ SCH (21:06)
[2022-10-16] MEDS: guaiFENesin SUGAR FREE 200 MG/10 ML UDC PO PRN (21:14)
[2022-10-16] MEDS: NICOTINE 21 MG/24 HR TDSY TD SCH (21:16)
[2022-10-16] MEDS: ATORVASTATIN 40 MG TAB PO SCH (21:17)
[2022-10-17] MEDS: INSULIN ASPART PER UNIT SC SCH ×6 (00:07→22:10)
[2022-10-17] MEDS: PANTOprazole 40 MG TAB PO SCH (06:06)
[2022-10-17 06:37] LABS: INR 1.3 (0.9-1.1); Prothrombin Time 13.9 Seconds (9.0-12.0)
[2022-10-17 06:53] LABS: Calcium 10.4 mg/dl (8.5-10.1); Potassium 4.1 mmol/L (3.5-5.1)
[2022-10-17] MEDS: ALBUT/IPRATROP 3MG/0.5MG NEB 3 ML VIAL NEB SCH ×4 (06:57→18:11)
[2022-10-17 07:21] LABS: BUN Creatinine Ratio 32.1 (10-20); Creatinine Clr Calc Pharmacy 191.1 ml/min; Est GFR (African American) 118.4 ml/min; Est GFR (Non-African American) 102.2 ml/min
[2022-10-17] MEDS: FUROSEMIDE 40 MG/4 ML VIAL IV SCH ×3 (07:37→22:01)
[2022-10-17] MEDS: MAGNESIUM HYDROXIDE SUSP 30 ML UDC PO SCH (07:37)
[2022-10-17] MEDS: buprenorphine HCL 8 MG SUBL SL SCH ×3 (07:37→22:07)
[2022-10-17] MEDS: POLYETHYLENE (MIRALAX) 17 GM PACK PO SCH (07:37)
[2022-10-17] MEDS: LORazepam 0.5 MG TAB PO PRN ×2 (07:38→22:06)
[2022-10-17] MEDS: POTASSIUM CHLORIDE CRTAB 20 MEQ TABCR PO SCH ×2 (07:38→22:14)
[2022-10-17] MEDS: CYCLOBENZAPRINE HCL 10 MG TAB PO PRN ×2 (07:38→22:06)
[2022-10-17] MEDS: DOCUSATE SODIUM 100 MG CAP PO SCH ×2 (07:38→22:07)
[2022-10-17] MEDS: methylPREDNISolone 40 MG in SYRINGE 0 ML IV SCH ×2 (07:39→21:59)
[2022-10-17] MEDS: FERROUS SULFATE 325 MG TAB PO SCH (07:39)
[2022-10-17] MEDS: SENNA 8.6 MG TAB PO SCH (07:39)
[2022-10-17] MEDS: SPIRONOLACTONE 25 MG TAB PO SCH (07:39)
[2022-10-17] MEDS: ASPIRIN 81 MG ECTAB PO SCH (07:40)
[2022-10-17] MEDS: UMECLIDINIUM/VILANTEROL 62.5/25MCG 7 PUFFS/INHALER INH SCH (07:40)
[2022-10-17] MEDS: FLUTICASONE PROPIONATE NA SPR 16 GM BTL SCH (07:40)
[2022-10-17] MEDS: ADVANCED PROBIOTIC 1250 MG CAPSULE PO SCH ×3 (07:40→22:09)
[2022-10-17] MEDS: DULoxetine HCL 60 MG CAP PO SCH (07:41)
[2022-10-17] MEDS: FAMOTIDINE 20 MG TAB PO SCH (07:41)
[2022-10-17] MEDS: DOXYCYCLINE HYCLATE 100 MG CAP PO SCH ×2 (07:41→22:09)
[2022-10-17] MEDS: FINASTERIDE 5 MG TAB PO SCH (07:42)
[2022-10-17] MEDS: METOPROLOL SUCC 25MG EXT REL TAB PO SCH ×2 (07:42→22:08)
[2022-10-17] MEDS: ISOSORBIDE DINITRATE 10 MG TAB PO SCH (07:42)
[2022-10-17] MEDS: FOLIC ACID 1 MG TAB PO SCH (07:42)
[2022-10-17] MEDS: TAMSULOSIN HCL 0.4 MG CAP PO SCH (07:42)
[2022-10-17] MEDS: GABAPENTIN 800 MG TAB PO SCH ×3 (07:43→22:10)
[2022-10-17] MEDS: MAGNESIUM OXIDE 400 MG TAB PO SCH (07:43)
[2022-10-17] MEDS: guaiFENesin SUGAR FREE 200 MG/10 ML UDC PO PRN ×2 (07:44→22:05)
[2022-10-17] MEDS: ACETAMINOPHEN 1,000 MG/100 ML VIAL IV PRN ×2 (08:24→21:57)
[2022-10-17] MEDS ORDERED: LANTUS PER UNIT CHARGE SQ ONE (09:00)
--- NOTE | 2022-10-17 15:57 | Hospitalist Progress Note ---
Date of Service October 17, 2022 Assessment & Plan (1) (HFpEF) heart failure with preserved ejection fraction: Plan: per Dr. Rojas's notes with addendum: Past medical history of morbid obesity, COPD, diastolic heart failure who presents to the hospital with weight gain and shortness of breath. Recently hospitalized due to COPD exacerbation and acute on chronic diastolic heart failure. She reports being compliant to the medication and diet. Chest x-ray shows mild pulmonary edema High-sensitivity troponin negative Plan; - Started on IV Lasix 40 mg twice daily; resume metolazone. negative balance of 14L since admission. Daily weights Strict input and output monitoring - Continue on Aldactone, metoprolol Cardiology on board; recommend to continue current treatment. 10/17 CXR: 1. Cardiomegaly with pulmonary vascular congestion and trace pleural effusions redemonstrated. 2. Mild left basilar opacities favor atelectasis. A mild pneumonitis could appear similarly. negative 27 L fluid balance per I's and O's, discrepancy with intake noted Patient showing rather slow improvement Emphasized fluid restriction Discussed with information systems architect Dr. Bojorquez Recommended increase Lasix 30 mg IV 3 times daily, increase metolazone 2.5 mg to 5 times per week, continue spironolactone daily Continue potassium We will monitor renal function and bicarb level (2) COPD (chronic obstructive pulmonary disease): Plan: History of COPD exacerbations in the past Currently no wheeze on examination. Chest x-ray does not show any infiltrates received iv steroid initially; on 20mg for 3 more days. 10/17 (+) exacerbation on 4 L O2, (+) wheezing CXR per above respiratory panel: (+) Coronavirus - not COVID sputum culture: Haemophilus, Streptococcus Gradually improving Still on 4 L of oxygen continue Doxycycline 100mg BID Day 3 Solumedrol 40mg IV BID Glycemic control consult Duoneb QID Incentive spirometry Chronic indwelling Lloyd Catheter Changed Lloyd catheter; change in ED H/O Pulmonary embolism INR 1.3 today increase coumadin today to 7.5 mg today INR daily DM II Last Hb A1C:7.8 Hold home agents Basal/bolus insulin per protocol BSG AC HS Glycemic control pharmacist consulted Chronic pain syndrome Right foot pain On Suboxone DVT Px: on warfarin PT OT ordered; patient had home physical therapy after getting discharged from the hospital. Patient reports that the cost is too much for him and he is unable to afford. PT OT recommend home with support with family. Patient wants to go to SNF. CM on board Disposition pending plan of care discussed with patient in detail and at length all questions answered he is understanding, agreeable, comfortable with the plan of care Admission and Anticipated Discharge Date Admission Date: October 11, 2022 Subjective Follow-up for acute systolic CHF exacerbation, COPD exacerbation secondary to coronavirus bronchitis, etc. RODGER Lindsay at bedside Patient seen walking from the bathroom back to his bed States breathing is somewhat improved compared to yesterday but still far from baseline Still having some productive cough intermittently No chest pain, palpitations, dizziness, headache, abdominal pain, nausea and vomiting No other symptoms Requesting to continue to have pudding states he was allowed to have it before, not counted with fluid restriction states he feels like the staff from yesterday was "fat shaming", being "racist" to him advised patient to avoid consuming too much pudding as it does have significant water content will allow 1-2 cups of pudding every lunch, dinner and night snack Patient verbalized understanding agreement with plan of care Review of Systems Review of Systems: all noted and negative except for above Physical Exam Physical Exam: General- oriented x 3, not in distress, speaks in sentences with no effort or accessory muscle use Eyes- anicteric Neck- no JVD Lungs-positive mild to moderate bilateral wheezing, improving compared to yesterday Also has some rhonchi as well Heart- normal rate, regular rhythm; no murmurs Abdomen- normal bowel sounds, nondistended, soft, nontender Extremities-grade 1 lower extremity edema, no erythema, tenderness, edema Lloyd catheter in place-draining yellow urine Neuro- alert, oriented x 3; no gross focal neurologic deficits Skin- warm & dry Results & Data Results & Data ([facility]) Vital Signs (Past 12 Hours) Vital Signs Temp Pulse Pulse Resp BP Pulse Ox O2 Del Method 10/17/22 15:36 37.1 C 70 20 161/50 H 94 Nasal Cannula 10/17/22 14:52 74 16 94 Nasal Cannula 10/17/22 12:41 Nasal Cannula 10/17/22 12:15 36.6 C 74 20 131/66 97 Nasal Cannula 10/17/22 11:15 68 18 94 Nasal Cannula 10/17/22 08:03 36.9 C 67 20 149/67 H 94 Nasal Cannula 10/17/22 06:00 57 L 10/17/22 06:57 58 L 18 94 Nasal Cannula O2 Flow Rate 10/17/22 15:36 4 10/17/22 14:52 4 10/17/22 12:41 4 10/17/22 12:15 4 10/17/22 11:15 4 10/17/22 08:03 4 10/17/22 06:00 10/17/22 06:57 4 all noted and reviewed including below (1) COPD (chronic obstructive pulmonary disease) COPD type: unspecified COPD Qualified Code(s): J44.9 - Chronic obstructive pulmonary disease, unspecified
[2022-10-17] MEDS: WARFARIN SOD 7.5 MG TAB PO SCH (16:34)
[2022-10-17] MEDS: NICOTINE 21 MG/24 HR TDSY TD SCH (22:06)
[2022-10-17] MEDS: LANTUS PER UNIT CHARGE SQ SCH (22:06)
[2022-10-17] MEDS: ATORVASTATIN 40 MG TAB PO SCH (22:11)
[2022-10-18] MEDS: FUROSEMIDE 40 MG/4 ML VIAL IV SCH ×3 (05:39→22:11)
[2022-10-18] MEDS: PANTOprazole 40 MG TAB PO SCH (05:41)
[2022-10-18 05:49] LABS: INR 1.7 (0.9-1.1); Prothrombin Time 17.7 Seconds (9.0-12.0)
[2022-10-18 06:19] LABS: Lyme Ab IgG w/WB Rflx Negative (Negative); Lyme Ab IgM w/WB Rflx Negative (Negative)
[2022-10-18] MEDS: ALBUT/IPRATROP 3MG/0.5MG NEB 3 ML VIAL NEB SCH ×4 (06:58→19:34)
[2022-10-18 07:05] LABS: BUN Creatinine Ratio 39.8 (10-20); Calcium 9.9 mg/dl (8.5-10.1); Creatinine Clr Calc Pharmacy 175.9 ml/min; Est GFR (African American) 114.5 ml/min; Est GFR (Non-African American) 98.8 ml/min; Potassium 4.3 mmol/L (3.5-5.1)
[2022-10-18] MEDS: CYCLOBENZAPRINE HCL 10 MG TAB PO PRN ×2 (08:35→22:29)
[2022-10-18] MEDS: LORazepam 0.5 MG TAB PO PRN ×2 (08:35→22:29)
[2022-10-18] MEDS: buprenorphine HCL 8 MG SUBL SL SCH ×3 (08:35→22:41)
[2022-10-18] MEDS: DOXYCYCLINE HYCLATE 100 MG CAP PO SCH ×2 (08:36→22:22)
[2022-10-18] MEDS: POTASSIUM CHLORIDE CRTAB 20 MEQ TABCR PO SCH ×2 (08:36→22:12)
[2022-10-18] MEDS: ADVANCED PROBIOTIC 1250 MG CAPSULE PO SCH ×3 (08:36→22:19)
[2022-10-18] MEDS: DOCUSATE SODIUM 100 MG CAP PO SCH ×2 (08:36→22:11)
[2022-10-18] MEDS: SPIRONOLACTONE 25 MG TAB PO SCH (08:37)
[2022-10-18] MEDS: ISOSORBIDE DINITRATE 10 MG TAB PO SCH (08:37)
[2022-10-18] MEDS: TAMSULOSIN HCL 0.4 MG CAP PO SCH (08:37)
[2022-10-18] MEDS: FERROUS SULFATE 325 MG TAB PO SCH (08:38)
[2022-10-18] MEDS: MAGNESIUM OXIDE 400 MG TAB PO SCH (08:38)
[2022-10-18] MEDS: DULoxetine HCL 60 MG CAP PO SCH (08:38)
[2022-10-18] MEDS: ASPIRIN 81 MG ECTAB PO SCH (08:38)
[2022-10-18] MEDS: FAMOTIDINE 20 MG TAB PO SCH (08:39)
[2022-10-18] MEDS: SENNA 8.6 MG TAB PO SCH (08:39)
[2022-10-18] MEDS: GABAPENTIN 800 MG TAB PO SCH ×3 (08:39→22:23)
[2022-10-18] MEDS: FINASTERIDE 5 MG TAB PO SCH (08:39)
[2022-10-18] MEDS: FOLIC ACID 1 MG TAB PO SCH (08:40)
[2022-10-18] MEDS: FLUTICASONE PROPIONATE NA SPR 16 GM BTL SCH (08:40)
[2022-10-18] MEDS: METOPROLOL SUCC 25MG EXT REL TAB PO SCH ×2 (08:40→22:18)
[2022-10-18] MEDS: methylPREDNISolone 40 MG in SYRINGE 0 ML IV SCH ×2 (08:42→22:18)
[2022-10-18] MEDS: HEPARIN SOD 5,000 UNIT/0.5 ML VIAL SQ SCH ×3 (08:43→22:13)
[2022-10-18] MEDS: INSULIN ASPART PER UNIT SC SCH ×4 (08:45→22:23)
[2022-10-18] MEDS: LANTUS PER UNIT CHARGE SQ SCH ×2 (08:45→21:52)
[2022-10-18] MEDS: POLYETHYLENE (MIRALAX) 17 GM PACK PO SCH (08:48)
[2022-10-18] MEDS: MAGNESIUM HYDROXIDE SUSP 30 ML UDC PO SCH (08:48)
[2022-10-18] MEDS: ACETAMINOPHEN 1,000 MG/100 ML VIAL IV PRN ×2 (08:50→17:50)
[2022-10-18] MEDS: UMECLIDINIUM/VILANTEROL 62.5/25MCG 7 PUFFS/INHALER INH SCH (09:18)
[2022-10-18] MEDS ORDERED: ACETAMINOPHEN 1,000 MG/100 ML VIAL IV PRN (10:55)
[2022-10-18] MEDS ORDERED: BENZONATATE 100 MG CAPSULE PO PRN (10:55)
[2022-10-18] MEDS: BENZONATATE 100 MG CAPSULE PO PRN ×2 (11:04→22:28)
[2022-10-18] MEDS: guaiFENesin SUGAR FREE 200 MG/10 ML UDC PO PRN ×3 (11:04→22:41)
[2022-10-18] MEDS: metOLazone 2.5 MG TABLET PO SCH (11:04)
[2022-10-18] MEDS: DICLOFENAC SOD 1% GEL 100 GM TUBE EXT SCH ×2 (11:58→22:10)
--- NOTE | 2022-10-18 15:06 | Hospitalist Progress Note ---
Date of Service October 18, 2022 Assessment & Plan (1) (HFpEF) heart failure with preserved ejection fraction: Plan: per Dr. Rojas's notes with addendum: Past medical history of morbid obesity, COPD, diastolic heart failure who presents to the hospital with weight gain and shortness of breath. Recently hospitalized due to COPD exacerbation and acute on chronic diastolic heart failure. She reports being compliant to the medication and diet. Chest x-ray shows mild pulmonary edema High-sensitivity troponin negative Plan; - Started on IV Lasix 40 mg twice daily; resume metolazone. negative balance of 14L since admission. Daily weights Strict input and output monitoring - Continue on Aldactone, metoprolol Cardiology on board; recommend to continue current treatment. 10/18 CXR: 1. Cardiomegaly with pulmonary vascular congestion and trace pleural effusions redemonstrated. 2. Mild left basilar opacities favor atelectasis. A mild pneumonitis could appear similarly. continues to diurese continue Lasix 30 mg IV 3 times daily, increased metolazone 2.5 mg to 5 times per week, continue spironolactone daily Continue potassium monitor renal function and bicarb level (2) COPD (chronic obstructive pulmonary disease): Plan: History of COPD exacerbations in the past Currently no wheeze on examination. Chest x-ray does not show any infiltrates received iv steroid initially; on 20mg for 3 more days. 10/18 (+) exacerbation on 4 L O2, (+) wheezing CXR per above respiratory panel: (+) Coronavirus HKU1- not COVID sputum culture: Haemophilus, Streptococcus Gradually improving Still on 4 L of oxygen--> wean off continue Doxycycline 100mg BID Day 12/25 Solumedrol 40mg IV BID Glycemic control consult Duoneb QID Incentive spirometry repeat CXR tomorrow Chronic indwelling Lloyd Catheter Changed Lloyd catheter; changed in ED H/O Pulmonary embolism INR 1.7 today coumadin 7.5 mg today INR daily DM II Last Hb A1C:7.8 Hold home agents Basal/bolus insulin per protocol BSG AC HS Glycemic control pharmacist consulted Chronic pain syndrome Right foot pain On Suboxone DVT Px: on warfarin Disposition pending plan of care discussed with patient in detail and at length all questions answered he is understanding, agreeable, comfortable with the plan of care Admission and Anticipated Discharge Date Admission Date: October 11, 2022 Subjective ff up for acute CHF exacerbation, COPD exacerbation, etc seen resting in bed, sitting up on 2 L , comfortable, not in distress states he still feels very tired breathing is gradually improving has occasional cough no chest pain, palpitations, dizziness no abdominal pain, nausea no leg pain no other symptoms Review of Systems Review of Systems: all noted and negative except for above Physical Exam Physical Exam: General- oriented x 3, not in distress, speaks in sentences with no effort or accessory muscle use Eyes- anicteric Neck- no JVD Lungs- moderate wheeze BL mild rhonchi BL Heart- normal rate, regular rhythm; no murmurs Abdomen- normal bowel sounds, nondistended, soft, no tenderness Extremities- no pretibial edema, no calf tenderness Neuro- alert, oriented x 3; no gross focal neurologic deficits Skin- warm & dry Results & Data Results & Data ([facility]) Vital Signs (Past 12 Hours) Vital Signs Temp Pulse Pulse Resp BP Pulse Ox O2 Del Method 10/18/22 13:20 Nasal Cannula 10/18/22 11:28 72 20 94 Nasal Cannula 10/18/22 08:00 55 L 10/18/22 08:21 36.6 C 64 20 124/69 93 Nasal Cannula 10/18/22 06:58 74 18 93 Nasal Cannula 10/18/22 04:07 36.9 C 61 18 109/71 92 Nasal Cannula O2 Flow Rate 10/18/22 13:20 4 10/18/22 11:28 4 10/18/22 08:00 10/18/22 08:21 4 10/18/22 06:58 4 10/18/22 04:07 4 all noted and reviewed including below (1) COPD (chronic obstructive pulmonary disease) COPD type: unspecified COPD Qualified Code(s): J44.9 - Chronic obstructive pulmonary disease, unspecified
[2022-10-18] MEDS: WARFARIN SOD 7.5 MG TAB PO SCH (16:18)
[2022-10-18] MEDS: ATORVASTATIN 40 MG TAB PO SCH (22:08)
[2022-10-18] MEDS: NICOTINE 21 MG/24 HR TDSY TD SCH (22:14)
[2022-10-19] MEDS: FUROSEMIDE 40 MG/4 ML VIAL IV SCH ×3 (05:44→20:37)
[2022-10-19] MEDS: HEPARIN SOD 5,000 UNIT/0.5 ML VIAL SQ SCH ×3 (05:45→20:38)
[2022-10-19] MEDS: PANTOprazole 40 MG TAB PO SCH (05:46)
[2022-10-19] MEDS: ALBUT/IPRATROP 3MG/0.5MG NEB 3 ML VIAL NEB SCH ×4 (07:19→19:39)
--- NOTE | 2022-10-19 08:27 | XRay Report ---
XR chest 1V portable HISTORY: ff up CHF COMPARISON: Chest 10/15/2022. FINDINGS: No pneumothorax. No change in the cardiomegaly, mild pulmonary vascular congestion, and sma ll bilateral pleural effusions. No new focal lung consolidations identified. IMPRESSION: No change in the cardiomegaly with mild pulmonary vascular congestion and small bilateral pleural eff usions. ACT 112: Negative or not required by law. Electronically signed by: Vidal Keller M.D. 10/19/2022 8:26 AM
[2022-10-19] MEDS: LANTUS PER UNIT CHARGE SQ SCH ×2 (08:50→21:04)
[2022-10-19] MEDS: INSULIN ASPART PER UNIT SC SCH ×4 (08:50→20:35)
[2022-10-19] MEDS: ACETAMINOPHEN 1,000 MG/100 ML VIAL IV PRN ×2 (08:53→18:01)
[2022-10-19] MEDS: CYCLOBENZAPRINE HCL 10 MG TAB PO PRN ×2 (08:54→20:47)
[2022-10-19] MEDS: buprenorphine HCL 8 MG SUBL SL SCH ×3 (08:54→20:30)
[2022-10-19] MEDS: LORazepam 0.5 MG TAB PO PRN ×2 (08:54→20:47)
[2022-10-19] MEDS: NYSTATIN POWDER 15GM BTL EXT PRN (09:03)
[2022-10-19] MEDS: methylPREDNISolone 40 MG in SYRINGE 0 ML IV SCH ×2 (09:04→20:37)
[2022-10-19] MEDS: FLUTICASONE PROPIONATE NA SPR 16 GM BTL SCH (09:04)
[2022-10-19] MEDS: DICLOFENAC SOD 1% GEL 100 GM TUBE EXT SCH ×2 (09:05→20:32)
[2022-10-19] MEDS: UMECLIDINIUM/VILANTEROL 62.5/25MCG 7 PUFFS/INHALER INH SCH (09:05)
[2022-10-19] MEDS: TAMSULOSIN HCL 0.4 MG CAP PO SCH (09:06)
[2022-10-19] MEDS: SENNA 8.6 MG TAB PO SCH (09:07)
[2022-10-19] MEDS: SPIRONOLACTONE 25 MG TAB PO SCH (09:07)
[2022-10-19] MEDS: ISOSORBIDE DINITRATE 10 MG TAB PO SCH (09:08)
[2022-10-19] MEDS: metOLazone 2.5 MG TABLET PO SCH (09:08)
[2022-10-19] MEDS: GABAPENTIN 800 MG TAB PO SCH ×3 (09:08→20:33)
[2022-10-19] MEDS: FAMOTIDINE 20 MG TAB PO SCH (09:08)
[2022-10-19] MEDS: ASPIRIN 81 MG ECTAB PO SCH (09:08)
[2022-10-19] MEDS: METOPROLOL SUCC 25MG EXT REL TAB PO SCH ×2 (09:08→20:37)
[2022-10-19] MEDS: MAGNESIUM OXIDE 400 MG TAB PO SCH (09:08)
[2022-10-19] MEDS: FOLIC ACID 1 MG TAB PO SCH (09:08)
[2022-10-19] MEDS: FINASTERIDE 5 MG TAB PO SCH (09:08)
[2022-10-19] MEDS: DULoxetine HCL 60 MG CAP PO SCH (09:08)
[2022-10-19] MEDS: FERROUS SULFATE 325 MG TAB PO SCH (09:08)
[2022-10-19] MEDS: ADVANCED PROBIOTIC 1250 MG CAPSULE PO SCH ×3 (09:09→20:36)
[2022-10-19] MEDS: DOXYCYCLINE HYCLATE 100 MG CAP PO SCH ×2 (09:09→20:33)
[2022-10-19] MEDS: POTASSIUM CHLORIDE CRTAB 20 MEQ TABCR PO SCH ×2 (09:15→20:37)
[2022-10-19] MEDS: POLYETHYLENE (MIRALAX) 17 GM PACK PO SCH (09:15)
[2022-10-19] MEDS: DOCUSATE SODIUM 100 MG CAP PO SCH ×2 (09:15→21:05)
[2022-10-19] MEDS: MAGNESIUM HYDROXIDE SUSP 30 ML UDC PO SCH (09:16)
[2022-10-19 09:31] LABS: INR 2.9 (0.9-1.1); Prothrombin Time 29.5 Seconds (9.0-12.0)
[2022-10-19 09:50] LABS: Calcium 10.8 mg/dl (8.5-10.1); Potassium 3.6 mmol/L (3.5-5.1)
[2022-10-19 09:58] LABS: Creatinine Clr Calc Pharmacy 151.3 ml/min; Est GFR (African American) 99.8 ml/min; Est GFR (Non-African American) 86.2 ml/min
--- NOTE | 2022-10-19 13:34 | Hospitalist Progress Note ---
Date of Service October 19, 2022 Assessment & Plan (1) (HFpEF) heart failure with preserved ejection fraction: Plan: per Dr. Rojas's notes with addendum: Past medical history of morbid obesity, COPD, diastolic heart failure who presents to the hospital with weight gain and shortness of breath. Recently hospitalized due to COPD exacerbation and acute on chronic diastolic heart failure. She reports being compliant to the medication and diet. Chest x-ray shows mild pulmonary edema High-sensitivity troponin negative Plan: - Started on IV Lasix 40 mg twice daily; resume metolazone. negative balance of 14L since admission. Daily weights Strict input and output monitoring - Continue on Aldactone, metoprolol Cardiology on board; recommend to continue current treatment. 10/19 CXR: 1. Cardiomegaly with pulmonary vascular congestion and trace pleural effusions redemonstrated. 2. Mild left basilar opacities favor atelectasis. A mild pneumonitis could appear similarly. continues to diurese-weight down to 193 per starting weight continue Lasix 30 mg IV 3 times daily, increased metolazone 2.5 mg to 5 times per week, continue spironolactone daily Continue potassium monitor renal function and bicarb level (2) COPD (chronic obstructive pulmonary disease): Plan: History of COPD exacerbations in the past Currently no wheeze on examination. Chest x-ray does not show any infiltrates received iv steroid initially; on 20mg for 3 more days. 10/19 (+) exacerbation 4 L, (+) wheezing CXR per above respiratory panel: (+) Coronavirus HKU1- not COVID sputum culture: Haemophilus, Streptococcus Gradually improving now on 3L of oxygen--> wean off continue Doxycycline 100mg BID Day 01/24 Solumedrol 40mg IV BID--> daily tomorrow Glycemic control consult Duoneb QID Incentive spirometry repeat CXR: IMPRESSION: No change in the cardiomegaly with mild pulmonary vascular congestion and small bilateral pleural effusions. Chronic indwelling Lloyd Catheter Changed Lloyd catheter; changed in ED H/O Pulmonary embolism INR 1.9 today coumadin 5 mg today INR daily DM II Last Hb A1C:7.8 Hold home agents Basal/bolus insulin per protocol BSG AC HS Glycemic control pharmacist consulted Chronic pain syndrome Right foot pain On Suboxone DVT Px: on warfarin Disposition pending plan of care discussed with patient in detail and at length all questions answered he is understanding, agreeable, comfortable with the plan of care Admission and Anticipated Discharge Date Admission Date: October 11, 2022 Subjective Follow-up for acute CHF exacerbation, COPD exacerbation, acute bronchitis, etc. Seen sitting up in bed, on 3 L of oxygen via nasal cannula Not in distress, comfortable States he feels that he is improving overall Breathing is improving, less cough No chest pain abdominal pain, nausea vomiting No leg pain No other symptoms Review of Systems Review of Systems: all noted and negative except for above Physical Exam Physical Exam: General- oriented x 3, not in distress, speaks in sentences with no effort or accessory muscle use Eyes- anicteric Neck- no JVD Lungs-mild wheezing bilaterally, occasional crackles bilaterally, good air entry Heart- normal rate, regular rhythm; no murmurs Abdomen- normal bowel sounds, nondistended, soft, no tenderness Extremities-grade 1 lower extremity bilateral edema, no calf tenderness Neuro- alert, oriented x 3; no gross focal neurologic deficits Skin- warm & dry Results & Data Results & Data ([facility]) Vital Signs (Past 12 Hours) Vital Signs Temp Pulse Pulse Resp BP Pulse Ox O2 Del Method 10/19/22 12:09 36.2 C L 80 14 106/67 93 Nasal Cannula 10/19/22 07:45 Nasal Cannula 10/19/22 11:14 68 18 95 Nasal Cannula 10/19/22 06:00 62 10/19/22 08:53 36.4 C L 78 14 149/65 H 94 Nasal Cannula 10/19/22 07:23 36.9 C 60 20 138/70 96 Nebulizer 10/19/22 07:19 65 18 95 Nasal Cannula 10/19/22 03:09 36.9 C 66 18 111/68 95 Nasal Cannula O2 Flow Rate 10/19/22 12:09 10/19/22 07:45 4 10/19/22 11:14 4 10/19/22 06:00 10/19/22 08:53 10/19/22 07:23 4 10/19/22 07:19 4 10/19/22 03:09 4 all noted and reviewed including below (1) COPD (chronic obstructive pulmonary disease) COPD type: unspecified COPD Qualified Code(s): J44.9 - Chronic obstructive pulmonary disease, unspecified
[2022-10-19] MEDS ORDERED: WARFARIN SOD 5 MG TAB PO SCH (16:00)
[2022-10-19] MEDS: NICOTINE 21 MG/24 HR TDSY TD SCH (20:29)
[2022-10-19] MEDS: ATORVASTATIN 40 MG TAB PO SCH (20:30)
[2022-10-19] MEDS: BENZONATATE 100 MG CAPSULE PO PRN (20:47)
[2022-10-19] MEDS: guaiFENesin SUGAR FREE 200 MG/10 ML UDC PO PRN (20:48)
[2022-10-20] MEDS: ACETAMINOPHEN 1,000 MG/100 ML VIAL IV PRN ×3 (03:01→21:36)
[2022-10-20] MEDS ORDERED: MAGNESIUM SULFATE / D5W 1 GM/100 ML BAG IV ONE (03:13)
[2022-10-20] MEDS ORDERED: ALBUT/IPRATROP 3MG/0.5MG NEB 3 ML VIAL NEB STA (03:17)
[2022-10-20] MEDS: methylPREDNISolone 40 MG in SYRINGE 0 ML IV SCH ×2 (03:33→20:26)
[2022-10-20] MEDS: FUROSEMIDE 40 MG/4 ML VIAL IV SCH ×2 (03:33→11:31)
[2022-10-20 04:36] LABS: Basophils # (auto) 0.04 K/uL (0-0.2); Basophils % (auto) 0.2 %; Hematocrit (blood only) 42.3 % (42.0-52.0); Hemoglobin 13.9 g/dl (14.0-18.0); Immature Granulocytes # (auto) 0.53 K/uL (0.01-0.20); Immature Granulocytes % (auto) 2.9 %; Lymphocytes % (auto) 14.9 %; Mean Corpuscular Hemoglobin 27.4 pg (25.0-34.0); Mean Corpuscular Hgb Conc 32.9 g/dL (32.0-36.0); Mean Corpuscular Volume 83.3 fL (80.0-100.0); Mean Platelet Volume 10.2 fL (9.4-12.4); Monocytes # (auto) 0.87 K/uL (0.11-0.59); Monocytes % (auto) 4.8 %; Neutrophils # (auto) 13.93 K/uL (1.40-6.50); Neutrophils % (auto) 77.2 %; Nucleated RBC # (auto) 0.02 K/uL (0-0.12); Nucleated RBC % (auto) 0.1 %; Platelet Count 322 K/uL (130-400); RDW Coefficient of Variation 17.8 % (11.5-14.5); RDW Standard Deviation 53.2 fL (36.4-46.3); Red Blood Count 5.08 M/uL (4.70-6.10); White Blood Count 18.07 K/ul (4.8-10.8)
[2022-10-20 05:34] LABS: BUN Creatinine Ratio 41.6 (10-20); Blood Urea Nitrogen 42 mg/dl (6-23); Calcium 10.5 mg/dl (8.5-10.1); Carbon Dioxide > 45 mmol/L (21-32); Chloride 87 mmol/L (98-107); Creatinine Clr Calc Pharmacy 149.8 ml/min; Est GFR (African American) 98.7 ml/min; Est GFR (Non-African American) 85.1 ml/min; Glucose 184 mg/dl (70-99(Fasting)); Magnesium 2.4 mg/dl (1.7-2.4); Potassium 3.7 mmol/L (3.5-5.1); Sodium 136 mmol/L (136-145)
[2022-10-20 05:41] LABS: Base Excess ABG 21.6 mEq/L (-9-1.8); HCO3 ABG 48 mmol/L (19-24); Oxygen Saturation ABG 96.3 % (90-95); PCO2 ABG 59 mmHg (35-46); PO2 ABG 71 mmHg (80-95)
[2022-10-20] MEDS: PANTOprazole 40 MG TAB PO SCH (05:41)
[2022-10-20] MEDS: HEPARIN SOD 5,000 UNIT/0.5 ML VIAL SQ SCH ×3 (05:41→20:27)
[2022-10-20 05:43] LABS: Allen Test Pos (Pos)
[2022-10-20 05:44] LABS: pH ABG 7.52 (7.35-7.45)
[2022-10-20 06:20] LABS: INR 3.5 (0.9-1.1)
--- NOTE | 2022-10-20 06:51 | XRay Report ---
XR chest 1V portable CLINICAL HISTORY: low o2 COMPARISON STUDY: Chest radiograph October 19, 2022. FINDINGS: Lung volumes are normal. Cardiomegaly is unchanged. There is no evidence for overt pulmonar y edema. Pulmonary vascular congestion similar to prior exam. Suspected trace bilateral pleural effus ions are unchanged. Mild left basilar opacity is unchanged. This favors epicardial fat pad or atelect asis. IMPRESSION: No change in appearance of the chest. Cardiomegaly with pulmonary vascular congestion. No overt pulmonary edema. Trace bilateral pleural effusions. ACT 112: Negative or not required by law. Electronically signed by: Evelio Corbin M.D. 10/20/2022 6:50 AM
[2022-10-20] MEDS: ALBUT/IPRATROP 3MG/0.5MG NEB 3 ML VIAL NEB SCH ×4 (07:10→19:57)
[2022-10-20] MEDS: LANTUS PER UNIT CHARGE SQ SCH (08:14)
[2022-10-20] MEDS: INSULIN ASPART PER UNIT SC SCH ×5 (08:14→23:02)
[2022-10-20] MEDS: guaiFENesin SUGAR FREE 200 MG/10 ML UDC PO PRN ×2 (08:15→20:21)
[2022-10-20] MEDS: POLYETHYLENE (MIRALAX) 17 GM PACK PO SCH (08:15)
[2022-10-20] MEDS: POTASSIUM CHLORIDE CRTAB 20 MEQ TABCR PO SCH ×2 (08:15→20:21)
[2022-10-20] MEDS: DOCUSATE SODIUM 100 MG CAP PO SCH ×2 (08:15→20:21)
[2022-10-20] MEDS: BENZONATATE 100 MG CAPSULE PO PRN ×2 (08:15→20:21)
[2022-10-20] MEDS: LORazepam 0.5 MG TAB PO PRN ×2 (08:15→20:21)
[2022-10-20] MEDS: FLUTICASONE PROPIONATE NA SPR 16 GM BTL SCH (08:15)
[2022-10-20] MEDS: CYCLOBENZAPRINE HCL 10 MG TAB PO PRN ×2 (08:15→20:21)
[2022-10-20] MEDS: UMECLIDINIUM/VILANTEROL 62.5/25MCG 7 PUFFS/INHALER INH SCH (08:15)
[2022-10-20] MEDS: DICLOFENAC SOD 1% GEL 100 GM TUBE EXT SCH ×2 (08:16→20:22)
[2022-10-20] MEDS: buprenorphine HCL 8 MG SUBL SL SCH ×3 (08:21→20:44)
[2022-10-20] MEDS: SENNA 8.6 MG TAB PO SCH (08:22)
[2022-10-20] MEDS: METOPROLOL SUCC 25MG EXT REL TAB PO SCH ×2 (08:22→20:25)
[2022-10-20] MEDS: ISOSORBIDE DINITRATE 10 MG TAB PO SCH (08:23)
[2022-10-20] MEDS: FOLIC ACID 1 MG TAB PO SCH (08:23)
[2022-10-20] MEDS: FERROUS SULFATE 325 MG TAB PO SCH (08:24)
[2022-10-20] MEDS: FINASTERIDE 5 MG TAB PO SCH (08:24)
[2022-10-20] MEDS: DULoxetine HCL 60 MG CAP PO SCH (08:25)
[2022-10-20] MEDS: ADVANCED PROBIOTIC 1250 MG CAPSULE PO SCH ×3 (08:25→20:23)
[2022-10-20] MEDS: TAMSULOSIN HCL 0.4 MG CAP PO SCH (08:25)
[2022-10-20] MEDS: SPIRONOLACTONE 25 MG TAB PO SCH (08:26)
[2022-10-20] MEDS: GABAPENTIN 800 MG TAB PO SCH ×3 (08:26→20:24)
[2022-10-20] MEDS: FAMOTIDINE 20 MG TAB PO SCH (08:26)
[2022-10-20] MEDS: MAGNESIUM OXIDE 400 MG TAB PO SCH (08:26)
[2022-10-20] MEDS: NYSTATIN POWDER 15GM BTL EXT PRN (08:26)
[2022-10-20] MEDS: MAGNESIUM HYDROXIDE SUSP 30 ML UDC PO SCH (08:27)
[2022-10-20] MEDS: ASPIRIN 81 MG ECTAB PO SCH (08:27)
[2022-10-20] MEDS: DOXYCYCLINE HYCLATE 100 MG CAP PO SCH ×2 (08:57→20:22)
--- NOTE | 2022-10-20 14:50 | Hospitalist Progress Note ---
Date of Service October 20, 2022 Assessment & Plan (1) (HFpEF) heart failure with preserved ejection fraction: Plan: per Dr. Rojas's notes with addendum: Past medical history of morbid obesity, COPD, diastolic heart failure who presents to the hospital with weight gain and shortness of breath. Recently hospitalized due to COPD exacerbation and acute on chronic diastolic heart failure. She reports being compliant to the medication and diet. Chest x-ray shows mild pulmonary edema High-sensitivity troponin negative Plan: - Started on IV Lasix 40 mg twice daily; resume metolazone. negative balance of 14L since admission. Daily weights Strict input and output monitoring - Continue on Aldactone, metoprolol Cardiology on board; recommend to continue current treatment. 10/20 CXR: 1. Cardiomegaly with pulmonary vascular congestion and trace pleural effusions redemonstrated. 2. Mild left basilar opacities favor atelectasis. A mild pneumonitis could appear similarly. continues to diurese-weight down to 187 per standing weight HCO3 >45 hold Lasix IV for now hold metolazone 2.5 mg 3 times per week, continue spironolactone daily monitor renal function and bicarb level (2) COPD (chronic obstructive pulmonary disease): Plan: COPD Exacerbation secondary to acute bronchitis, CHF exacerbation respiratory panel: (+) Coronavirus HKU1- not COVID sputum culture: Haemophilus, Streptococcus repeat CXR: IMPRESSION: No change in the cardiomegaly with mild pulmonary vascular congestion and small bilateral pleural effusions. Gradually improving now on 2L of oxygen continue Doxycycline 100mg BID Day 6/7 Solumedrol 40mg IV BID--> daily tomorrow Glycemic control consult Duoneb QID Incentive spirometry Chronic indwelling Lloyd Catheter Changed Lloyd catheter; changed in ED H/O Pulmonary embolism INR 3.5 hold coumadin INR daily DM II Last Hb A1C:7.8 Hold home agents Basal/bolus insulin per protocol BSG AC HS Glycemic control pharmacist consulted--> please inform once Solumedrol being tapered Chronic pain syndrome Right foot pain On Suboxone DVT Px: INR 3.5 Disposition anticipate d/c home when medically stable plan of care discussed with patient in detail and at length all questions answered he is understanding, agreeable, comfortable with the plan of care Admission and Anticipated Discharge Date Admission Date: October 11, 2022 Subjective ff up for CHF exacerbation, etc seen resting in bed, comfortable states he feels better today breathing improving cough also improving no fever/chills, shortness of breath, chest pain no other symptoms Review of Systems Review of Systems: all noted and negative except for above Physical Exam Physical Exam: General- oriented x 3, not in distress, speaks in sentences with no effort or accessory muscle use Eyes- anicteric Neck- no JVD Lungs- mild-moderate wheezing, mild basilar rhonchi no other symptoms Heart- normal rate, regular rhythm; no murmurs Abdomen- normal bowel sounds, nondistended, soft, no tenderness Extremities- no pretibial edema, no calf tenderness Neuro- alert, oriented x 3; no gross focal neurologic deficits Skin- warm & dry Results & Data Results & Data ([facility]) Vital Signs (Past 12 Hours) Vital Signs Temp Pulse Pulse Resp BP BP Pulse Ox 10/20/22 14:09 78 10/20/22 11:40 80 18 95 10/20/22 11:20 37.1 C 79 12 147/71 H 89 L 10/20/22 11:10 92 10/20/22 11:10 89 L 10/20/22 09:45 96 10/20/22 07:20 10/20/22 07:36 36.4 C L 75 10 L 146/72 H 91 10/20/22 05:59 60 10/20/22 07:10 66 18 96 10/20/22 03:00 36.7 C 65 20 148/70 H 90 10/20/22 03:35 60 20 91 O2 Del Method O2 Flow Rate 10/20/22 14:09 10/20/22 11:40 Nasal Cannula 2 10/20/22 11:20 Room Air 10/20/22 11:10 Nasal Cannula 2 10/20/22 11:10 Room Air, Nasal Cannula 0 10/20/22 09:45 Room Air, Nasal Cannula 4 10/20/22 07:20 Nasal Cannula 4 10/20/22 07:36 Nasal Cannula 4 10/20/22 05:59 10/20/22 07:10 Nasal Cannula 4 10/20/22 03:00 Nasal Cannula 6 10/20/22 03:35 Nasal Cannula 5 all noted and reviewed including below (1) COPD (chronic obstructive pulmonary disease) COPD type: unspecified COPD Qualified Code(s): J44.9 - Chronic obstructive pulmonary disease, unspecified
[2022-10-20] MEDS: PROMETHAZINE HCL 12.5 MG in SODIUM CHLORIDE 0.9% 50 ML IV PRN (18:47)
[2022-10-20] MEDS: ATORVASTATIN 40 MG TAB PO SCH (20:21)
[2022-10-20] MEDS: NICOTINE 21 MG/24 HR TDSY TD SCH (20:26)
[2022-10-21] MEDS: INSULIN ASPART PER UNIT SC SCH ×5 (04:51→21:43)
[2022-10-21] MEDS: HEPARIN SOD 5,000 UNIT/0.5 ML VIAL SQ SCH ×3 (05:53→21:46)
[2022-10-21] MEDS: PANTOprazole 40 MG TAB PO SCH (05:54)
[2022-10-21] MEDS: ALBUT/IPRATROP 3MG/0.5MG NEB 3 ML VIAL NEB SCH ×4 (07:09→19:13)
[2022-10-21] MEDS: LANTUS PER UNIT CHARGE SQ SCH (09:09)
[2022-10-21] MEDS: POLYETHYLENE (MIRALAX) 17 GM PACK PO SCH (09:20)
[2022-10-21] MEDS: SODIUM CHLORIDE 0.65% NA SOLN 45 ML (OCEAN) PRN (09:25)
[2022-10-21] MEDS: DICLOFENAC SOD 1% GEL 100 GM TUBE EXT SCH ×2 (09:25→21:49)
[2022-10-21] MEDS: UMECLIDINIUM/VILANTEROL 62.5/25MCG 7 PUFFS/INHALER INH SCH (09:29)
[2022-10-21] MEDS: FLUTICASONE PROPIONATE NA SPR 16 GM BTL SCH (09:29)
[2022-10-21] MEDS: LORazepam 0.5 MG TAB PO PRN ×2 (09:30→21:44)
[2022-10-21] MEDS: buprenorphine HCL 8 MG SUBL SL SCH ×3 (09:30→21:44)
[2022-10-21] MEDS: DOCUSATE SODIUM 100 MG CAP PO SCH ×2 (09:30→21:51)
[2022-10-21] MEDS: CYCLOBENZAPRINE HCL 10 MG TAB PO PRN ×2 (09:30→21:44)
[2022-10-21] MEDS: POTASSIUM CHLORIDE CRTAB 20 MEQ TABCR PO SCH ×2 (09:31→21:44)
[2022-10-21] MEDS: FOLIC ACID 1 MG TAB PO SCH (09:31)
[2022-10-21] MEDS: TAMSULOSIN HCL 0.4 MG CAP PO SCH (09:32)
[2022-10-21] MEDS: ISOSORBIDE DINITRATE 10 MG TAB PO SCH (09:32)
[2022-10-21] MEDS: ASPIRIN 81 MG ECTAB PO SCH (09:32)
[2022-10-21] MEDS: MAGNESIUM OXIDE 400 MG TAB PO SCH (09:33)
[2022-10-21] MEDS: SENNA 8.6 MG TAB PO SCH (09:33)
[2022-10-21] MEDS: ADVANCED PROBIOTIC 1250 MG CAPSULE PO SCH ×3 (09:34→21:48)
[2022-10-21] MEDS: GABAPENTIN 800 MG TAB PO SCH ×3 (09:34→21:48)
[2022-10-21] MEDS: METOPROLOL SUCC 25MG EXT REL TAB PO SCH ×2 (09:35→21:51)
[2022-10-21] MEDS: FINASTERIDE 5 MG TAB PO SCH (09:35)
[2022-10-21] MEDS: FAMOTIDINE 20 MG TAB PO SCH (09:35)
[2022-10-21] MEDS: FERROUS SULFATE 325 MG TAB PO SCH (09:35)
[2022-10-21] MEDS: DOXYCYCLINE HYCLATE 100 MG CAP PO SCH ×2 (09:36→21:45)
[2022-10-21] MEDS: guaiFENesin SUGAR FREE 200 MG/10 ML UDC PO PRN (09:36)
[2022-10-21] MEDS: methylPREDNISolone 40 MG in SYRINGE 0 ML IV SCH ×2 (09:37→21:44)
[2022-10-21] MEDS: ACETAMINOPHEN 1,000 MG/100 ML VIAL IV PRN ×2 (09:38→18:13)
[2022-10-21 09:46] LABS: Hematocrit (blood only) 47.4 % (42.0-52.0); Hemoglobin 15.2 g/dl (14.0-18.0); Mean Corpuscular Hemoglobin 26.9 pg (25.0-34.0); Mean Corpuscular Hgb Conc 32.1 g/dL (32.0-36.0); Mean Corpuscular Volume 83.9 fL (80.0-100.0); Mean Platelet Volume 10.3 fL (9.4-12.4); Nucleated RBC # (auto) 0.03 K/uL (0-0.12); Nucleated RBC % (auto) 0.2 %; Platelet Count 330 K/uL (130-400); RDW Coefficient of Variation 18.6 % (11.5-14.5); RDW Standard Deviation 53.7 fL (36.4-46.3); Red Blood Count 5.65 M/uL (4.70-6.10); White Blood Count 18.37 K/ul (4.8-10.8)
[2022-10-21] MEDS: BENZONATATE 100 MG CAPSULE PO PRN (09:50)
[2022-10-21] MEDS: MAGNESIUM HYDROXIDE SUSP 30 ML UDC PO SCH (09:50)
[2022-10-21] MEDS: DULoxetine HCL 60 MG CAP PO SCH (09:50)
[2022-10-21 10:14] LABS: Basophils % (auto) 0.5 %; Eosinophils # (auto) 0.05 K/uL (0-0.50); Eosinophils % (auto) 0.3 %; Immature Granulocytes # (auto) 0.65 K/uL (0.01-0.20); Immature Granulocytes % (auto) 3.5 %; Lymphocytes # (auto) 6.52 K/uL (1.2-3.4); Lymphocytes % (auto) 35.5 %; Monocytes # (auto) 1.41 K/uL (0.11-0.59); Monocytes % (auto) 7.7 %; Neutrophils # (auto) 9.64 K/uL (1.40-6.50); Neutrophils % (auto) 52.5 %
[2022-10-21 10:20] LABS: Calcium 10.7 mg/dl (8.5-10.1); Creatinine Clr Calc Pharmacy 128.1 ml/min; Est GFR (African American) 81.7 ml/min; Est GFR (Non-African American) 70.5 ml/min; Magnesium 2.2 mg/dl (1.7-2.4); Potassium 3.3 mmol/L (3.5-5.1)
[2022-10-21] MEDS: PROMETHAZINE HCL 12.5 MG in SODIUM CHLORIDE 0.9% 50 ML IV PRN ×2 (13:51→23:03)
--- NOTE | 2022-10-21 15:08 | Pharmacy Report ---
Pharmacy Glycemic Short Note 2 - Date of Service October 21, 2022 - Glycemic Short BSG Results (Last 24 hours): 10/20/22 10/20/22 10/20/22 16:18 16:19 20:39 Glucose POC Glucose 76 83 58 L* 10/20/22 10/20/22 10/20/22 20:41 21:09 21:11 Glucose POC Glucose 64 L* 53 L* 73 10/20/22 10/21/22 10/21/22 22:25 03:45 07:41 Glucose POC Glucose 91 103 H 109 H 10/21/22 10/21/22 09:13 11:23 Glucose 182 H POC Glucose 109 H OUTPATIENT ANTIDIABETIC REGIMEN: * glipizide, Lantus 50 units HS, Novolog SSI ASSESSMENT: 10/21 * Patient received total of 170 units of insulin yesterday, of which 40 units were basal * PM basal last evening held for hypoglycemia - PM solumedrol also was not given per EMAR * Fasting BSG 109 mg/dL - will loosen novolog today * Anticipate BSGs to rise with steroids, therefore will add basal on again for tonight 10/16 * Patient received total of 221 units of insulin yesterday, of which 150 units were basal insulin. * Scale for basal insulin had been ordered at HS time last evening, verified with RN/patient that he was given 100 units of basal last night which was different from ordered dose. RN had incorrectly interpreted insulin order. * Fasting BSG 152 mg/dL - loosened novolog parameters this morning since larger dose given then what was ordered. Patient on ongoing steroids, so will trend BSGs rest of day * Likely could resume Lantus 50 units bid starting tonight as long as BSGs stable today 10/15 * 52 year old admitted with shortness of breath started on steroids. Type 2 diabetic, pharmacy consulted. Patient known to glycemic service from last admission. At that time when he was on solumedrol 40 mg iv bid he was requiring 200-300 units of insulin per day. Basal insulin was ~100 units while on steroids * Solumedrol starting today at lunch time - BSG at time of consult 197 mg/dL. Plan to give PM 50 units of basal insulin now and will provide scale for HS to help cover ongoing steroids * Will add on overnight checks to determine insulin needs PLAN FOR INPATIENT GLYCEMIC CONTROL: * Hold outpatient oral diabetes medications * Basal insulin * Lantus 60 units HS * Will reevaluate basal ongoing in AM * Bolus insulin * NovoLog per scale ACHS or Q6hrs while NPO * Goal Range: Low 120 mg/dL - High 150 mg/dL * Correction Factor: 10 mg/dL/unit * Nutritional / Prandial insulin per carb ratio of 1 unit per 4.5 grams CHO consumed
[2022-10-21] MEDS: guaiFENesin/CODEINE 100MG/10MG 5ML UDC PO PRN ×2 (15:55→21:44)
--- NOTE | 2022-10-21 17:24 | Hospitalist Progress Note ---
Date of Service October 21, 2022 Assessment & Plan (1) (HFpEF) heart failure with preserved ejection fraction: Plan: Past medical history of morbid obesity, COPD, diastolic heart failure who presents to the hospital with weight gain and shortness of breath. Recently hospitalized due to COPD exacerbation and acute on chronic diastolic heart failure. She reports being compliant to the medication and diet. Chest x-ray shows mild pulmonary edema High-sensitivity troponin negative Plan: - Started on IV Lasix 40 mg twice daily; resume metolazone. negative balance of 14L since admission. Weight has been improving Has lost about 43 L since admission and maintaining strict intake output chart - Continue on Aldactone, metoprolol Cardiology on board; recommend to continue current treatment. -HCO3 >45 and Lasix and metolazone has been on hold -Repeat CO2 showed improvement at 43 Will monitor BMP again tomorrow before restarting any Lasix -He has been feeling much better (2) COPD (chronic obstructive pulmonary disease): Plan: COPD Exacerbation secondary to acute bronchitis, CHF exacerbation respiratory panel: (+) Coronavirus HKU1- not COVID sputum culture: Haemophilus, Streptococcus Gradually improving now on 2L of oxygen continue Doxycycline 100mg BID Day 03/26 Solumedrol 40mg IV BID--> daily tomorrow Glycemic control consult Duoneb QID Incentive spirometry We will continue IV Solu-Medrol before the day of discharge Change to oral prednisone on discharge with tapering over 2 to 3 weeks We will advised to have an appointment with outpatient smooth plater Rod-AC was given for cough Chronic indwelling Lloyd Catheter Changed Lloyd catheter; changed in ED H/O Pulmonary embolism INR 3.5 hold coumadin INR daily-3.5 as on 10/21/2022 DM II Last Hb A1C:7.8 Hold home agents Basal/bolus insulin per protocol BSG AC HS Glycemic control pharmacist consulted--> please inform once Solumedrol being tapered Chronic pain syndrome Right foot pain On Suboxone DVT Px: INR 3.5 Disposition anticipate d/c home when medically stable Discussed with the patient and the significant other We will continue current management and given additional cough medicine Likely discharge on Wednesday Admission and Anticipated Discharge Date Admission Date: October 11, 2022 Subjective 10/21/2022 Patient was seen and examined in medical telemetry unit He has been feeling much better and denies any significant symptoms except cough. He wants to have some cough medicine that worked well before for him Minimal wheezing at rest but has been communicating normally without any shortness of breath Review of Systems Review of Systems: All systems reviewed and are unremarkable except as noted below Respiratory: Minimal wheezing without any shortness of breath at rest Physical Exam Physical Exam: Lying in bed comfortably Constitutional: well developed, well nourished, + ill appearing and + morbidly obese Eyes: PERRL, conjunctivae normal, anicteric sclerae ENMT: external ear and nose normal, oropharynx normal Neck: trachea midline, no thyromegaly Respiratory: no respiratory distress Auscultation: + diminished lung sounds and + wheezes (Minimal wheezing bilaterally) Cardiovascular: Rate/Rhythm: regular rate and regular rhythm; not tachycardic Heart Sounds: normal S1 and normal S2; no murmur Extremities: + edema (1+ edema bilaterally with chronic skin changes) Gastrointestinal (Abdomen): Inspection/Auscultation: normal bowel sounds; abdomen not distended Percussion/Palpation: abdomen soft; abdomen nontender Musculoskeletal: No acute arthritis involving any joint Neurologic: Alert, 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. No focal sensory or no motor deficit appreciated Psychiatric: A+Ox3, euthymic affect Lymphatic: no cervical or axillary lymphadenopathy Results & Data Results & Data ([facility]) Vital Signs (Past 12 Hours) Vital Signs Temp Pulse Pulse Resp BP Pulse Ox O2 Del Method 10/21/22 15:42 77 10/21/22 15:22 37.1 C 78 18 130/63 90 Room Air 10/21/22 14:46 86 18 94 Nasal Cannula 10/21/22 11:44 36.7 C 75 20 140/70 88 L Room Air 10/21/22 10:54 90 18 91 Room Air 10/21/22 08:00 Nasal Cannula 10/21/22 08:02 36.7 C 57 L 18 135/71 97 Nasal Cannula 10/21/22 07:25 55 L 10/21/22 07:10 86 18 96 Nasal Cannula O2 Flow Rate 10/21/22 15:42 10/21/22 15:22 10/21/22 14:46 1 10/21/22 11:44 10/21/22 10:54 10/21/22 08:00 2 10/21/22 08:02 4 10/21/22 07:25 10/21/22 07:10 4 Laboratory Results Short CBC 10/21/22 Range/Units 09:13 WBC 18.37 H (4.8-10.8) K/ul Hgb 15.2 (14.0-18.0) g/dl Hct 47.4 (42.0-52.0) % Plt Count 330 (130-400) K/uL BMP 10/21/22 09:13 Sodium 137 Potassium 3.3 L Chloride 89 L Carbon Dioxide 43 H* BUN 46 H Creatinine 1.18 Glucose 182 H Calcium 10.7 H Medications Administered Current Inpatient Medications Albuterol (Albut/Ipratrop 3mg/0.5mg Neb 3 Ml Vial) 3 ml NEB QIDR EMPERATRIZ; Protocol Stop: 11/12/22 06:59 Last Admin: 10/21/22 14:45 Dose: 3 ml Albuterol (Albut/Ipratrop 3mg/0.5mg Neb 3 Ml Vial) 3 ml NEB Q2H PRN; Protocol PRN Reason: SOB/WHEEZING Stop: 11/11/22 21:36 Albuterol (Albuterol Hfa 8 Gm Inhaler) 2 puffs INH Q4 PRN PRN Reason: Dyspnea Stop: 11/14/22 14:02 Aspirin (Aspirin 81 Mg Ectab) 81 mg PO QAM [facility] Stop: 11/10/22 08:59 Last Admin: 10/21/22 09:32 Dose: 81 mg Atorvastatin Calcium (Atorvastatin 40 Mg Tab) 80 mg PO QPM [facility] Stop: 11/10/22 20:59 Last Admin: 10/20/22 20:21 Dose: 80 mg Benzonatate (Benzonatate 100 Mg Capsule) 100 mg PO TID PRN PRN Reason: cough Stop: 11/10/22 05:38 Last Admin: 10/21/22 09:50 Dose: 100 mg Buprenorphine HCl (Buprenorphine Hcl 8 Mg Subl) 8 mg SL TID [facility] Stop: 11/10/22 08:59 Last Admin: 10/21/22 13:57 Dose: 8 mg Cyclobenzaprine HCl (Cyclobenzaprine Hcl 10 Mg Tab) 10 mg PO BID PRN PRN Reason: Muscle Spasm Stop: 11/10/22 05:38 Last Admin: 10/21/22 09:30 Dose: 10 mg Dextrose (Dextrose 50% 50 Ml Syringe) 25 - 50 ml IV UD PRN; Protocol PRN Reason: Hypoglycemia Protocol Stop: 11/10/22 05:38 Diclofenac Sodium (Diclofenac Sod 1% Gel 100 Gm Tube) 2 gm EXT BID [facility]; Protocol Stop: 11/17/22 10:59 Last Admin: 10/21/22 09:25 Dose: 2 gm Docusate Sodium (Docusate Sodium 100 Mg Cap) 100 mg PO BID [facility] Stop: 11/10/22 08:59 Last Admin: 10/21/22 09:30 Dose: 100 mg Doxycycline Hyclate (Doxycycline Hyclate 100 Mg Cap) 100 mg PO BID [facility]; Protocol Stop: 10/22/22 11:14 Last Admin: 10/21/22 09:36 Dose: 100 mg Duloxetine HCl (Duloxetine Hcl 60 Mg Cap) 60 mg PO DAILY [facility] Stop: 11/10/22 08:59 Last Admin: 10/21/22 09:50 Dose: 60 mg Famotidine (Famotidine 20 Mg Tab) 20 mg PO DAILY [facility] Stop: 11/10/22 08:59 Last Admin: 10/21/22 09:35 Dose: 20 mg Ferrous Sulfate (Ferrous Sulfate 325 Mg Tab) 325 mg PO QAM [facility] Stop: 11/10/22 08:59 Last Admin: 10/21/22 09:35 Dose: 325 mg Finasteride (Finasteride 5 Mg Tab) 5 mg PO QAM [facility] Stop: 11/10/22 08:59 Last Admin: 10/21/22 09:35 Dose: 5 mg Fluticasone Propionate (Fluticasone Propionate Na Spr 16 Gm Btl) 2 sprays NA DAILY [facility] Stop: 11/10/22 08:59 Last Admin: 10/21/22 09:29 Dose: 2 sprays Folic Acid (Folic Acid 1 Mg Tab) 1 mg PO QAM [facility] Stop: 11/10/22 08:59 Last Admin: 10/21/22 09:31 Dose: 1 mg Furosemide (Furosemide 40 Mg/4 Ml Vial) 30 mg IV Q8H [facility] Stop: 11/19/22 03:19 Last Admin: 10/20/22 11:31 Dose: 30 mg Gabapentin (Gabapentin 800 Mg Tab) 800 mg PO TID [facility] Stop: 11/10/22 08:59 Last Admin: 10/21/22 13:57 Dose: 800 mg Glucagon (Glucagon For Inj 1 Mg Vial) 1 mg SQ UD PRN; Protocol PRN Reason: Hypoglycemia Protocol Stop: 11/10/22 05:38 Glucose (Glucose 40% Gel 15 Gm Tube) 15 - 30 gm PO UD PRN; Protocol PRN Reason: Hypoglycemia Protocol Stop: 11/10/22 05:38 Glucose (Glucose 10 Tab/Tube) 4 - 8 tab PO UD PRN; Protocol PRN Reason: Hypoglycemia Treatment Stop: 11/10/22 05:38 Guaifenesin/Codeine Phosphate (Guaifenesin/Codeine 100mg/10mg 5ml Udc) 5 ml PO Q6H PRN PRN Reason: Cough Stop: 11/20/22 14:12 Last Admin: 10/21/22 15:55 Dose: 5 ml Heparin Sodium (Porcine) (Heparin Sod 5,000 Unit/0.5 Ml Vial) 7,500 units SQ Q8 [facility]RIZ Stop: 11/17/22 07:54 Last Admin: 10/21/22 13:57 Dose: 7,500 units Hydroxyzine HCl (Hydroxyzine Hcl 25 Mg Tab) 25 mg PO QID PRN PRN Reason: Anxiety Stop: 11/10/22 05:38 Acetaminophen (Ofirmev) 1,000 mg in 100 mls @ 400 mls/hr IV Q8H PRN PRN Reason: pain/fever Stop: 10/22/22 17:44 Last Infusion: 10/21/22 10:13 Dose: Infused Methylprednisolone 40 mg/ (Syringe) 0.64 mls @ 1.5 mls/min IV BID [facility] Stop: 11/19/22 03:19 Last Admin: 10/21/22 09:37 Dose: 1.5 mls/min Promethazine HCl 12.5 mg/ (Sodium Chloride) 50.5 mls @ 202 mls/hr IV Q6H PRN PRN Reason: Nausea And Vomiting Stop: 11/19/22 18:03 Last Infusion: 10/21/22 14:21 Dose: Infused Insulin Aspart (Insulin Aspart Per Unit) 0 units SC ACHS [facility]; Protocol Stop: 11/10/22 07:29 Last Admin: 10/21/22 12:40 Dose: 12 units Insulin Aspart (Insulin Aspart Per Unit) 0 units SC 0000 [facility]; Protocol Stop: 10/22/22 00:01 Insulin Glargine (Lantus Per Unit Charge) 40 units SQ DAILY [facility] Stop: 11/17/22 08:59 Last Admin: 10/21/22 09:09 Dose: 40 units Insulin Glargine (Lantus Per Unit Charge) 60 units SQ HS [facility] Stop: 11/20/22 20:59 Isosorbide Dinitrate (Isosorbide Dinitrate 10 Mg Tab) 30 mg PO DAILY [facility] Stop: 11/10/22 08:59 Last Admin: 10/21/22 09:32 Dose: 30 mg Lactobacillus Acidophilus (Advanced Probiotic 1250 Mg Capsule) 2 cap PO TID [facility] Stop: 11/10/22 08:59 Last Admin: 10/21/22 13:57 Dose: 2 cap Lorazepam (Lorazepam 0.5 Mg Tab) 0.5 mg PO TID PRN PRN Reason: Anxiety Stop: 11/10/22 21:15 Last Admin: 10/21/22 09:30 Dose: 0.5 mg Magnesium Hydroxide (Magnesium Hydroxide Susp 30 Ml Udc) 30 ml PO DAILY [facility] Stop: 11/11/22 09:14 Last Admin: 10/21/22 09:50 Dose: 30 ml Magnesium Oxide (Magnesium Oxide 400 Mg Tab) 400 mg PO DAILY [facility] Stop: 11/10/22 08:59 Last Admin: 10/21/22 09:33 Dose: 400 mg Metolazone (Metolazone 2.5 Mg Tablet) 2.5 mg PO SuMoWeFrSa@1030 [facility] Stop: 11/17/22 10:29 Last Admin: 10/19/22 09:08 Dose: 2.5 mg Metoprolol Succinate (Metoprolol Succ 25mg Ext Rel Tab) 75 mg PO BID [facility] Stop: 11/10/22 08:59 Last Admin: 10/21/22 09:35 Dose: 75 mg Miscellaneous (Urea [Ureacin-20] Cream: Order Awaiting Action) 1 each N/A QS [facility] Stop: 11/10/22 07:59 Last Admin: 10/21/22 14:13 Dose: Not Given Miscellaneous (Carbohydrates For Hypoglycemia ) 15 - 30 gm PO UD PRN PRN Reason: Hypoglycemia Protocol Stop: 11/10/22 05:38 Miscellaneous (Remove Nicoderm Patch) 1 each N/A DAILY@2058 [facility] Stop: 11/11/22 20:58 Last Admin: 10/20/22 20:20 Dose: 1 each Miscellaneous Information (Pharmacy Glycemic Mgmt Consult) 1 each N/A UD PRN; Protocol PRN Reason: Consult Stop: 11/14/22 11:03 Nicotine (Nicotine 21 Mg/24 Hr Tdsy) 21 mg TD HS [facility] Stop: 11/10/22 21:19 Last Admin: 10/20/22 20:26 Dose: 21 mg Nitroglycerin (Nitroglycerin Sl 0.4 Mg/Tab Tab) 0.4 mg SL UD PRN PRN Reason: Chest Pain Stop: 11/10/22 05:38 Nystatin (Nystatin Powder 15gm Btl) 1 appln EXT TID PRN PRN Reason: Skin Irritation Stop: 11/10/22 05:38 Last Admin: 10/20/22 08:26 Dose: 1 appln Ondansetron HCl (Ondansetron 4 Mg Od Tab) 4 mg PO Q8H PRN PRN Reason: NAUSEA/VOMITING Pantoprazole Sodium (Pantoprazole 40 Mg Tab) 40 mg PO DAILYBB [facility] Stop: 11/10/22 06:29 Last Admin: 10/21/22 05:54 Dose: 40 mg Polyethylene Glycol (Polyethylene (Miralax) 17 Gm Pack) 17 gm PO DAILY PRN PRN Reason: Constipation Stop: 11/10/22 05:38 Last Admin: 10/11/22 17:07 Dose: 17 gm Polyethylene Glycol (Polyethylene (Miralax) 17 Gm Pack) 17 gm PO QAM [facility] Stop: 11/10/22 08:59 Last Admin: 10/21/22 09:20 Dose: 17 gm Potassium Chloride (Potassium Chloride Crtab 20 Meq Tabcr) 20 meq PO BID [facility] Stop: 11/10/22 08:59 Last Admin: 10/21/22 09:31 Dose: 20 meq Sennosides (Senna 8.6 Mg Tab) 8.6 mg PO DAILY PRN PRN Reason: Constipation Stop: 11/10/22 05:38 Last Admin: 10/12/22 08:48 Dose: 8.6 mg Sennosides (Senna 8.6 Mg Tab) 8.6 mg PO QAM [facility] Stop: 11/11/22 09:14 Last Admin: 10/21/22 09:33 Dose: 8.6 mg Sodium Chloride (Sodium Chloride 0.65% Na Soln 45 Ml ([place])) 2 sprays NA TID PRN PRN Reason: Nasal Congestion Stop: 11/13/22 22:24 Last Admin: 10/21/22 09:25 Dose: 2 sprays Spironolactone (Spironolactone 25 Mg Tab) 25 mg PO QAM [facility] Stop: 11/10/22 08:59 Last Admin: 10/20/22 08:26 Dose: 25 mg Tamsulosin HCl (Tamsulosin Hcl 0.4 Mg Cap) 0.8 mg PO QAM [facility] Stop: 11/10/22 08:59 Last Admin: 10/21/22 09:32 Dose: 0.8 mg Umeclidinium/Vilanterol (Umeclidinium/Vilanterol 62.5/25mcg 7 Puffs/Inhaler) 1 puffs INH DAILY [facility] Stop: 11/10/22 08:59 Last Admin: 10/21/22 09:29 Dose: 1 puffs Warfarin Sodium (Warfarin Sod 5 Mg Tab) 5 mg PO DAILY@1600 [facility] Stop: 11/18/22 15:59 Last Admin: 10/19/22 16:35 Dose: 5 mg (1) COPD (chronic obstructive pulmonary disease) COPD type: unspecified COPD Qualified Code(s): J44.9 - Chronic obstructive pulmonary disease, unspecified
[2022-10-21] MEDS ORDERED: LANTUS PER UNIT CHARGE SQ SCH (21:00)
[2022-10-21] MEDS: NICOTINE 21 MG/24 HR TDSY TD SCH (21:45)
[2022-10-21] MEDS: ATORVASTATIN 40 MG TAB PO SCH (21:49)
[2022-10-22] MEDS ORDERED: INSULIN ASPART PER UNIT SC SCH
[2022-10-22] MEDS: ACETAMINOPHEN 1,000 MG/100 ML VIAL IV PRN ×2 (05:27→09:28)
[2022-10-22] MEDS: HEPARIN SOD 5,000 UNIT/0.5 ML VIAL SQ SCH ×2 (05:30→13:23)
[2022-10-22] MEDS: guaiFENesin/CODEINE 100MG/10MG 5ML UDC PO PRN ×2 (05:30→09:27)
[2022-10-22] MEDS: PANTOprazole 40 MG TAB PO SCH (05:31)
[2022-10-22] MEDS: ALBUT/IPRATROP 3MG/0.5MG NEB 3 ML VIAL NEB SCH ×2 (07:07→10:58)
[2022-10-22 08:43] LABS: INR 1.5 (0.9-1.1); Prothrombin Time 16.1 Seconds (9.0-12.0)
[2022-10-22] MEDS: INSULIN ASPART PER UNIT SC SCH ×2 (09:06→12:17)
[2022-10-22] MEDS: DOCUSATE SODIUM 100 MG CAP PO SCH (09:06)
[2022-10-22] MEDS: MAGNESIUM HYDROXIDE SUSP 30 ML UDC PO SCH (09:06)
[2022-10-22] MEDS: SENNA 8.6 MG TAB PO SCH (09:07)
[2022-10-22] MEDS: GABAPENTIN 800 MG TAB PO SCH ×2 (09:07→13:21)
[2022-10-22] MEDS: DOXYCYCLINE HYCLATE 100 MG CAP PO SCH (09:08)
[2022-10-22] MEDS: ASPIRIN 81 MG ECTAB PO SCH (09:08)
[2022-10-22] MEDS: FINASTERIDE 5 MG TAB PO SCH (09:09)
[2022-10-22] MEDS: TAMSULOSIN HCL 0.4 MG CAP PO SCH (09:09)
[2022-10-22] MEDS: FOLIC ACID 1 MG TAB PO SCH (09:09)
[2022-10-22] MEDS: FERROUS SULFATE 325 MG TAB PO SCH (09:10)
[2022-10-22] MEDS: FAMOTIDINE 20 MG TAB PO SCH (09:10)
[2022-10-22] MEDS: MAGNESIUM OXIDE 400 MG TAB PO SCH (09:10)
[2022-10-22] MEDS: METOPROLOL SUCC 25MG EXT REL TAB PO SCH (09:10)
[2022-10-22] MEDS: ISOSORBIDE DINITRATE 10 MG TAB PO SCH (09:11)
[2022-10-22] MEDS: ADVANCED PROBIOTIC 1250 MG CAPSULE PO SCH ×2 (09:11→13:21)
[2022-10-22] MEDS: DULoxetine HCL 60 MG CAP PO SCH (09:12)
[2022-10-22] MEDS: UMECLIDINIUM/VILANTEROL 62.5/25MCG 7 PUFFS/INHALER INH SCH (09:13)
[2022-10-22] MEDS: FLUTICASONE PROPIONATE NA SPR 16 GM BTL SCH (09:13)
[2022-10-22] MEDS: methylPREDNISolone 40 MG in SYRINGE 0 ML IV SCH (09:13)
[2022-10-22] MEDS: DICLOFENAC SOD 1% GEL 100 GM TUBE EXT SCH (09:15)
[2022-10-22] MEDS: POTASSIUM CHLORIDE CRTAB 20 MEQ TABCR PO SCH (09:26)
[2022-10-22] MEDS: LORazepam 0.5 MG TAB PO PRN (09:26)
[2022-10-22] MEDS: buprenorphine HCL 8 MG SUBL SL SCH ×2 (09:26→13:21)
[2022-10-22] MEDS: POLYETHYLENE (MIRALAX) 17 GM PACK PO SCH (09:27)
[2022-10-22] MEDS: LANTUS PER UNIT CHARGE SQ SCH (09:28)
[2022-10-22 11:30] LABS: BUN Creatinine Ratio 39.4 (10-20); Calcium 10.2 mg/dl (8.5-10.1); Creatinine Clr Calc Pharmacy 161.8 ml/min; Est GFR (African American) 107.6 ml/min; Est GFR (Non-African American) 92.8 ml/min; Magnesium 2.2 mg/dl (1.7-2.4); Potassium 3.9 mmol/L (3.5-5.1)
[2022-10-22] MEDS ORDERED: metOLazone 2.5 MG TABLET PO ONE (11:34)
[2022-10-22] MEDS ORDERED: FUROSEMIDE 40 MG TAB PO SCH (11:45)
--- NOTE | 2022-10-22 11:51 | Hospitalist Progress Note ---
Date of Service October 22, 2022 Assessment & Plan (1) (HFpEF) heart failure with preserved ejection fraction: Plan: Past medical history of morbid obesity, COPD, diastolic heart failure who presents to the hospital with weight gain and shortness of breath. Recently hospitalized due to COPD exacerbation and acute on chronic diastolic heart failure. She reports being compliant to the medication and diet. Chest x-ray shows mild pulmonary edema High-sensitivity troponin negative Plan: - Started on IV Lasix 40 mg twice daily; resume metolazone. negative balance of 14L since admission. Weight has been improving Has lost about 43 L since admission and maintaining strict intake output chart - Continue on Aldactone, metoprolol Cardiology on board; recommend to continue current treatment. -HCO3 >45 and Lasix and metolazone has been on hold -Repeat CO2 showed improvement at 43 Will monitor BMP again tomorrow before restarting any Lasix -He has been feeling much better -He wants to go home today and he was sent home this afternoon (2) COPD (chronic obstructive pulmonary disease): Plan: COPD Exacerbation secondary to acute bronchitis, CHF exacerbation respiratory panel: (+) Coronavirus HKU1- not COVID sputum culture: Haemophilus, Streptococcus Gradually improving now on 2L of oxygen continue Doxycycline 100mg BID Day 03/26 Solumedrol 40mg IV BID--> daily tomorrow Glycemic control consult Duoneb QID Incentive spirometry We will continue IV Solu-Medrol before the day of discharge Change to oral prednisone on discharge with tapering over 2 to 3 weeks We will advised to have an appointment with outpatient senior energy analyst Rod-AC was given for cough He will be given a short course of prednisone Chronic indwelling Lloyd Catheter Changed Lloyd catheter; changed in ED Home health nurse will change the Lloyd as advised H/O Pulmonary embolism INR 3.5 hold coumadin INR daily-3.5 as on 10/21/2022 Will have follow-up with the Coumadin clinic DM II Last Hb A1C:7.8 Hold home agents Basal/bolus insulin per protocol [facility] Glycemic control pharmacist consulted--> please inform once Solumedrol being tapered Will need to take additional insulin as advised as long as he is on prednisone Chronic pain syndrome Right foot pain On Suboxone DVT Px: INR 3.5 Disposition anticipate d/c home when medically stable Discussed with the patient and the significant other We will continue current management and given additional cough medicine Will discharge home this afternoon Admission and Anticipated Discharge Date Admission Date: October 11, 2022 Subjective 10/21/2022 Patient was seen and examined in medical telemetry unit He has been feeling much better and denies any significant symptoms except cough. He wants to have some cough medicine that worked well before for him Minimal wheezing at rest but has been communicating normally without any shortness of breath 10/22/2022 The patient was seen and examined in medical telemetry unit He has been stable and wants to go home today His CO2 level has come down Denies any significant symptoms Review of Systems Review of Systems: All systems reviewed and are unremarkable except as noted below Respiratory: Minimal wheezing without any shortness of breath at rest Physical Exam Physical Exam: Lying in bed comfortably Constitutional: well developed, well nourished, + ill appearing and + morbidly obese Eyes: PERRL, conjunctivae normal, anicteric sclerae ENMT: external ear and nose normal, oropharynx normal Neck: trachea midline, no thyromegaly Respiratory: no respiratory distress Auscultation: + diminished lung sounds and + wheezes (Minimal wheezing bilaterally) Cardiovascular: Rate/Rhythm: regular rate and regular rhythm; not tachycardic Heart Sounds: normal S1 and normal S2; no murmur Extremities: + edema (1+ edema bilaterally with chronic skin changes) Gastrointestinal (Abdomen): Inspection/Auscultation: normal bowel sounds; abdomen not distended Percussion/Palpation: abdomen soft; abdomen nontender Musculoskeletal: No acute arthritis involving any joint Neurologic: Alert, 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. No focal sensory or no motor deficit appreciated Psychiatric: A+Ox3, euthymic affect Lymphatic: no cervical or axillary lymphadenopathy Results & Data Results & Data ([facility]) Vital Signs (Past 12 Hours) Vital Signs Temp Pulse Resp BP Pulse Ox O2 Del Method O2 Flow Rate 10/22/22 10:58 78 19 93 Room Air 10/22/22 07:07 71 18 96 Nasal Cannula 4 10/22/22 05:36 36.5 C 70 20 148/81 H 95 Nasal Cannula 4 Laboratory Results [facility] 10/22/22 07:57 Sodium 137 Potassium 3.9 Chloride 95 L Carbon Dioxide 38 H BUN 37 H Creatinine 0.94 Glucose 213 H Calcium 10.2 H (1) COPD (chronic obstructive pulmonary disease) COPD type: unspecified COPD Qualified Code(s): J44.9 - Chronic obstructive pulmonary disease, unspecified
[2022-10-22] MEDS ORDERED: FUROSEMIDE 40 MG/4 ML VIAL IV ONE (11:57)
--- NOTE | 2022-10-28 16:49 | Discharge Summary ---
Date of Service October 28, 2022 Admission HPI Per Admitting Provider DICTATED BY:Everardo Ibarra MD CHIEF COMPLAINT: Shortness of breath and weight gain. HISTORY OF PRESENT ILLNESS: This is a 52-year-old male with past medical history significant for type 2 diabetes; hypertension; history of PE, on Coumadin; diastolic CHF; chronic back pain; history of COPD; history of urinary retention with chronic Lloyd; depression; anxiety; history of subdural hematoma; history of subarachnoid hemorrhage; history of ST elevated MA; history of sleep apnea and COPD overlap syndrome; history of recurrent multiple admissions, presents with shortness of breath, weight gain. He says he gained 20 pounds in the last 1 week. He also came to change his Lloyd catheter, which was changed in the ER, and ER tried to discharge, but he wanted to get admitted, complaining of shortness of breath. He states he uses 4 liters of oxygen in the nighttime and when he woke up in the morning, his oxygen was still 83%, so he kept his oxygen on the daytime also today. Not able to do much because of shortness of breath. He is having some cough. He still smokes. He says he is smoking like one pack of cigarettes in 2 days. He has some mild chest pain, mild headache, no blurred visions. Currently, no earaches, no runny nose, no sore throat, no difficulty swallowing. Appetite is not that great as per the patient. No fevers. Somewhat nausea. No abdominal pain. Constipated. Denies any blood in the stools. Sitting on a chair comfortably, saturating okay on 4 liters. Admission Exam Per Admitting Provider GENERAL: The patient is morbidly obese, not in acute distress. VITAL SIGNS: Temperature afebrile, pulse 75, respiratory rate 16, blood pressure 106/59, oxygen 99% on 4 liters. HEENT: Pupils equal, round and reactive to light. Oral mucosa moist. NECK: No JVD, no neck masses. CARDIOVASCULAR: S1 and S2 heard. Regular rate and rhythm. No murmur, no gallop. RESPIRATORY SYSTEM: Normal AP diameter. Diminished bilateral breath sounds. Mild bibasilar crackles. ABDOMEN: Soft, bowel sounds present, nontender, no distention. CENTRAL NERVOUS SYSTEM: Alert and oriented. Speech is clear. No facial droop. Obeys simple commands. Insight is okay. Moves extremities. EXTREMITIES: Bilateral lower extremity gross edema present, no erythema seen. SKIN: Chronic skin changes seen. Principal Diagnosis Heart failure with preserved ejection fraction, COPD exacerbation, chronic indwelling Lloyd catheter, history of pulmonary embolism on Coumadin, type 2 diabetes, chronic pain syndrome Discharge Exam Lying in bed comfortably Constitutional well developed, well nourished, + ill appearing and + morbidly obese Eyes PERRL, conjunctivae normal, anicteric sclerae ENMT external ear and nose normal, oropharynx normal Neck trachea midline, no thyromegaly Respiratory no respiratory distress Auscultation: + diminished lung sounds and + wheezes (Minimal wheezing bilaterally) Cardiovascular Rate/Rhythm: regular rate and regular rhythm; not tachycardic Heart Sounds: normal S1 and normal S2; no murmur Extremities: + edema (1+ edema bilaterally with chronic skin changes) Gastrointestinal (Abdomen) Inspection/Auscultation: normal bowel sounds; abdomen not distended Percussion/Palpation: abdomen soft; abdomen nontender Psychiatric A+Ox3, euthymic affect Lymphatic no cervical or axillary lymphadenopathy Discharge Data Allergies Allergy/AdvReac Type Severity Reaction Status Date / Time cefepime Allergy Intermediate rash Verified 10/26/22 15:32 daptomycin Allergy Intermediate rash Verified 10/26/22 15:32 fentanyl Allergy Intermediate RASH/HIVES/SKIN Verified 10/26/22 15:32 REDNESS naloxone AdvReac Severe extremely Verified 10/26/22 15:32 sick acetaminophen [From Tylenol] AdvReac Intermediate IRRITATES Verified 10/26/22 15:32 & UPSET STOMACH ibuprofen AdvReac Intermediate Nausea Verified 10/26/22 15:32 valproic acid AdvReac Intermediate PANCREATITS Verified 10/26/22 15:32 Consultations 10/11/22 03:48 ED Decision to Admit Stat 10/11/22 08:00 Consult Cardiology Routine Hospital Course (1) (HFpEF) heart failure with preserved ejection fraction: Past medical history of morbid obesity, COPD, diastolic heart failure who presents to the hospital with weight gain and shortness of breath. Recently hospitalized due to COPD exacerbation and acute on chronic diastolic heart failure. She reports being compliant to the medication and diet. Chest x-ray shows mild pulmonary edema High-sensitivity troponin negative Plan: - Started on IV Lasix 40 mg twice daily; resume metolazone. negative balance of 14L since admission. Weight has been improving Has lost about 43 L since admission and maintaining strict intake output chart - Continue on Aldactone, metoprolol Cardiology on board; recommend to continue current treatment. -HCO3 >45 and Lasix and metolazone has been on hold -Repeat CO2 showed improvement at 43 Will monitor BMP again tomorrow before restarting any Lasix -He has been feeling much better -He wants to go home today and he was sent home this afternoon (2) COPD (chronic obstructive pulmonary disease): COPD Exacerbation secondary to acute bronchitis, CHF exacerbation respiratory panel: (+) Coronavirus HKU1- not COVID sputum culture: Haemophilus, Streptococcus Gradually improving now on 2L of oxygen continue Doxycycline 100mg BID Day 03/26 Solumedrol 40mg IV BID--> daily tomorrow Glycemic control consult Duoneb QID Incentive spirometry We will continue IV Solu-Medrol before the day of discharge Change to oral prednisone on discharge with tapering over 2 to 3 weeks We will advised to have an appointment with outpatient shipping and receiving coordinator Rod-AC was given for cough He will be given a short course of prednisone Chronic indwelling Lloyd Catheter Changed Lloyd catheter; changed in ED Home health nurse will change the Lloyd as advised H/O Pulmonary embolism INR 3.5 hold coumadin INR daily-3.5 as on 10/21/2022 Will have follow-up with the Coumadin clinic DM II Last Hb A1C:7.8 Hold home agents Basal/bolus insulin per protocol BSG AC Glycemic control pharmacist consulted--> please inform once Solumedrol being tapered Will need to take additional insulin as advised as long as he is on prednisone Chronic pain syndrome Right foot pain On Suboxone DVT Px: INR 3.5 Disposition anticipate d/c home when medically stable Discussed with the patient and the significant other We will continue current management and given additional cough medicine Will discharge home this afternoon Total Time Total Time Spent Total Time Spent (In Minutes): 35 minutes Discharge Plan Discharge Items Patient Disposition: Home - Home Health Services Reason For Visit: SOB Discharge Diagnosis: Heart failure with preserved ejection fraction, COPD exacerbation, chronic indwelling Lloyd catheter, history of pulmonary embolism on Coumadin, type 2 diabetes, chronic pain syndrome Condition on Discharge: Fair Activity: As commented below Activity Comment: Continue outpatient physical therapy Non-emergency contact: Primary Care Provider Call non-emergency contact if: you have any medication questions and your symptoms worsen Follow-up/Referrals: Roberto Askew MD [Primary Care Provider] - (He will make an appointment with his primary care physician within 7 days. 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: supplemental Lantus as his prednisone tapers as well: Pred 40 mg --> Lantus 25 units Pred 30 mg --> Lantus 20 units Pred 20 mg --> Lantus 15 units Pred 10 mg --> Lantus 10 units Pending Studies at Discharge: No Stand-Alone Forms: My [facility], Smoking Cessation Medications and DC Order Prescriptions: New nicotine [Nicoderm CQ] 21 mg/24 hr Patch 24 Hour 21 mg transdermal HS 30 Days Qty: 30 0RF codeine-guaifenesin [Guaiatussin AC] 10-100 mg/5 mL Liquid 5 ml PO Q6H PRN (Reason: cough) Qty: 120 0RF diclofenac sodium [Voltaren Arthritis Pain] 1 % Gel 2 g EXT BID Qty: 50 0RF prednisone 10 mg tablet 10 mg PO UD Qty: 30 0RF Rx Instructions: 4 p.o. daily for 3 days, 3 p.o. daily for 3 days, 2 p.o. daily for 3 days and then 1 daily for 3 days Continued tamsulosin [Flomax] 0.4 mg capsule 0.8 mg PO QAM Qty: 180 3RF polyethylene glycol 3350 [Miralax] 17 gram powder in packet 17 g PO QAM nitroglycerin [Nitrostat] 0.4 mg tablet, sublingual 0.4 mg Sublingual DIRECTED PRN (Reason: CHEST PAIN) Rx Instructions: PLACE ONE TABLET UNDER THE TONGUE EVERY 5 MINUTES FOR UP TO 3 DOSES OVER 15 MINUTES IF NEEDED FOR CHEST PAIN nystatin 100,000 unit/gram Powder 1 applic TOPICAL TID PRN (Reason: Skin Irritation) Rx Instructions: APPLY DIRECTED TO ABDOMINAL FOLDS cyclobenzaprine 10 mg Tablet 10 mg PO BID PRN (Reason: Muscle Spasm) ipratropium-albuterol 0.5 mg-3 mg(2.5 mg base)/3 mL Solution For Nebulization 3 ml INHALATION Q6H PRN (Reason: Shortness Of Breath Or Wheezing) docusate sodium 100 mg Capsule 100 mg PO BID duloxetine 60 mg capsule,delayed release(DR/EC) 60 mg PO DAILY famotidine 20 mg tablet 20 mg PO DAILY fluticasone propionate 50 mcg/actuation spray,suspension 2 spray Intranasal DAILY aspirin [Ecotrin Low Strength] 81 mg tablet,delayed release (DR/EC) 81 mg PO QAM finasteride 5 mg tablet 5 mg PO QAM metoprolol succinate 50 mg Tablet Extended Release 24 Hr 75 mg PO BID spironolactone 25 mg Tablet 25 mg PO QAM atorvastatin 80 mg tablet 80 mg PO QPM Rx Instructions: TAKE THIS MEDICATION EVERY AFTERNOON sennosides [senna] 8.6 mg Tablet 8.6 mg PO DAILY PRN (Reason: Constipation) folic acid 1 mg Tablet 1 mg PO QAM furosemide [Lasix] 40 mg tablet 40 mg PO BID albuterol sulfate 90 mcg/actuation Hfa Aerosol Inhaler 2 puff INHALATION Q4 PRN (Reason: Dyspnea) omeprazole 20 mg Capsule,Delayed Release(Dr/Ec) 20 mg PO DAILYBB gabapentin 800 mg tablet 800 mg PO TID buprenorphine HCl 8 mg tablet, sublingual 8 mg SUBLINGUAL TID Rx Instructions: Per Dr 1st glipizide 10 mg tablet 10 mg PO BID urea [Ureacin-20] 20 % Cream 1 applic TOPICAL BID magnesium oxide 400 mg (241.3 mg magnesium) tablet 400 mg PO DAILY ferrous sulfate 325 mg (65 mg iron) Tablet 325 mg PO QAM Rx Instructions: Take with breakfast hydroxyzine HCl 25 mg Tablet 25 mg PO QID PRN (Reason: Anxiety) ondansetron HCl 4 mg Tablet 4 mg PO Q8H PRN (Reason: NAUSEA/VOMITING) benzonatate 100 mg Capsule 100 mg PO TID PRN (Reason: cough) Qty: 10 0RF metolazone 2.5 mg tablet 2.5 mg PO 3XWK Rx Instructions: take 1 tab 3x a week (mon/wed/wed) Lactinex 1 million cell tablet,chewable 1 tab PO TID Qty: 30 0RF isosorbide dinitrate 30 mg tablet 30 mg PO DAILY warfarin 5 mg tablet See Rx Instructions .ROUTE .COMPLEX Rx Instructions: 2.5 - 5 mg orally ;take 5 mg in the evening every wednesday and take 2.5 mg every other evening of the week guaifenesin [Mucinex] 600 mg Tablet Extended Release 12hr 1,200 mg PO BID potassium chloride 20 mEq tablet extended release 20 meq PO BID lorazepam 0.5 mg tablet 0.5 mg PO Q8 PRN (Reason: Anxiety) Qty: 6 0RF insulin aspart U-100 [Novolog FlexPen U-100 Insulin] 100 unit/mL (3 mL) Insulin Pen 1 unit SUBCUT TIDM Qty: 30 0RF Rx Instructions: inject 1 unit uner the skin three times a day with meals. units as per sliding scale as instructed by provider to cover for steroid coverage when warranted insulin glargine [Lantus Solostar U-100 Insulin] 100 unit/mL (3 mL) Insulin Pen 50 unit SC HS 30 Days Qty: 15 0RF Stiolto Respimat 2.5-2.5 mcg/actuation mist 2 puff inhalation DAILY Qty: 4 0RF Discharge Orders: Discharge Order (Routine); Ordered 10/22/22 Ordered By: Augustus Vasquez Admission Data Admit Date/Time: 10/11/22 04:20 Attending Provider: Augustus Vasquez Admit Provider: Everardo Ibarra Primary Care Provider: Roberto Askew Other Providers: Kvng Ovalle ; [place],Care ; Manuel English Other Interventions: Discharge Summary Assessment (RN) Last Done: 10/22/22 12:59
== END 2022-10-22 13:45 | disposition home health service (06) | DRG 291 ==
LOC: ED 23:45 → 2E 10-11 04:20 → SUATTDRO 10-11 04:20 → 2E 10-11 05:32 → 2W 10-12 11:44

== ENCOUNTER 2022-10-26 11:03 | Observation (INO) ==
[2022-10-26] MEDS ORDERED: ALBUT/IPRATROP 3MG/0.5MG NEB 3 ML VIAL NEB STA (11:40)
[2022-10-26] MEDS ORDERED: ACETAMINOPHEN 1,000 MG/100 ML VIAL IV STA (11:40)
[2022-10-26] MEDS ORDERED: SODIUM CHLORIDE 0.9% 500 ML IV ONE (11:45)
--- NOTE | 2022-10-26 12:02 | XRay Report ---
XR chest 1V portable HISTORY: syncope COMPARISON: Chest 10/20/2022. FINDINGS: A few left basilar linear densities remain stable and favor subsegmental atelectasis or sca rring. The heart remains mildly enlarged. No pleural effusions. No pneumothorax. No new focal lung co nsolidations identified. No evidence for pulmonary edema. IMPRESSION: No significant change compared to the prior study. No acute process. ACT 112: Negative or not required by law. Electronically signed by: Vidal Keller M.D. 10/26/2022 12:00 PM
[2022-10-26 12:05] LABS: Hematocrit (blood only) 44.2 % (42.0-52.0); Hemoglobin 14.8 g/dl (14.0-18.0); Mean Corpuscular Hemoglobin 27.9 pg (25.0-34.0); Mean Corpuscular Hgb Conc 33.5 g/dL (32.0-36.0); Mean Corpuscular Volume 83.2 fL (80.0-100.0); Mean Platelet Volume 10.1 fL (9.4-12.4); Nucleated RBC # (auto) 0.02 K/uL (0-0.12); Nucleated RBC % (auto) 0.1 %; Platelet Count 319 K/uL (130-400); RDW Coefficient of Variation 19.1 % (11.5-14.5); RDW Standard Deviation 54.6 fL (36.4-46.3); Red Blood Count 5.31 M/uL (4.70-6.10)
[2022-10-26 12:15] LABS: Prothrombin Time 20.6 Seconds (9.0-12.0)
[2022-10-26 12:18] LABS: Basophils % (auto) 0.3 %; Eosinophils # (auto) 0.03 K/uL (0-0.50); Eosinophils % (auto) 0.1 %; Immature Granulocytes # (auto) 1.06 K/uL (0.01-0.20); Immature Granulocytes % (auto) 3.5 %; Lymphocytes # (auto) 2.82 K/uL (1.2-3.4); Lymphocytes % (auto) 9.2 %; Monocytes # (auto) 1.63 K/uL (0.11-0.59); Monocytes % (auto) 5.3 %; Neutrophils # (auto) 24.86 K/uL (1.40-6.50); Neutrophils % (auto) 81.6 %
[2022-10-26 12:24] LABS: Albumin Globulin Ratio 1.1 (0.9-2); Albumin Level 3.8 gm/dl (3.4-5.0); BUN Creatinine Ratio 30.3 (10-20); Bilirubin,Total 1.2 mg/dl (0.2-1.0); Calcium 10.4 mg/dl (8.5-10.1); Creatinine Clr Calc Pharmacy 173.8 ml/min; Est GFR (African American) 113.9 ml/min; Est GFR (Non-African American) 98.3 ml/min; Globulin 3.5 gm/dl (2.5-4.0); Magnesium 1.6 mg/dl (1.7-2.4); Phosphorus 2.4 mg/dl (2.5-4.9); Potassium 3.5 mmol/L (3.5-5.1); Total Protein 7.3 gm/dl (6.0-8.3)
[2022-10-26 12:25] LABS: Appearance Urine Clear (Clear); Bacteria Urine Automated 1+ (Negative); Bilirubin Urine Negative (Negative); Blood Urine 2+ (Negative); Cast Urine Automated 0 /lpf (0-5); Color Urine Yellow; Epithelial Cell Urine Auto 0-5 /lpf (0-5); Glucose Urine UA Negative (Negative); Ketones Urine Negative (Negative); Leukocyte Esterase Urine Trace (Negative); Nitrite Urine Negative (Negative); Protein Urine Negative (Negative); Specific Gravity Urine 1.008 (1.000-1.030); Urobilinogen Urine Negative (Negative); pH Urine 7.5 (4.5-7.5)
[2022-10-26 12:27] LABS: Troponin I High Sensitivity 6.8 pg/ml (0-20)
--- NOTE | 2022-10-26 12:30 | Electrocardiogram Report ---
Test Reason : Blood Pressure : / mmHG Vent. Rate : 081 BPM Atrial Rate : 081 BPM P-R Int : 146 ms QRS Dur : 106 ms QT Int : 350 ms P-R-T Axes : 003 043 063 degrees QTc Int : 406 ms Normal sinus rhythm Incomplete right bundle branch block Diffuse Minor Nonspecific ST abnormality Abnormal ECG When compared with ECG of 11-OCT-2022 00:20, No significant change Confirmed by Da Browning ([id number]) on 10/26/2022 12:30:06 PM Referred By: Confirmed By:Da Browning
[2022-10-26] MEDS ORDERED: OPTIRAY 320 500ml IV ONE (13:22)
--- NOTE | 2022-10-26 13:46 | CT Scan Report ---
CT head/brain wo con CLINICAL HISTORY: 52 years-old Male with syncope, trauma. Acute head trauma with syncope TECHNIQUE: Multiple axial CT images of the head were obtained without contrast. A dose lowering tech nique was utilized adhering to the principles of ALARA. COMPARISON: 05/14/2022. FINDINGS: No acute intracranial hemorrhage, midline shift, intracranial mass, hydrocephalus, territorial ischem ia or abnormal extra-axial collection. Mild involutional changes. Mildly motion degraded exam. The calvarium is intact. Small left and trace right mastoid effusions. Severe near complete opacific ation of the maxillary, ethmoid and right frontal sinuses with at least moderate mucosal thickening o f the sphenoid sinuses. Unremarkable soft tissues. IMPRESSION: No acute intracranial abnormality or calvarial fracture. ACT 112: Negative or not required by law. The above report was generated using voice recognition software. It may contain grammatical, syntax o r spelling errors. Electronically signed by: Shelton Apodaca M.D. 10/26/2022 1:44 PM
--- NOTE | 2022-10-26 13:49 | CT Scan Report ---
CT SCAN OF THE ABDOMEN AND PELVIS WITH IV CONTRAST CLINICAL HISTORY: Pain. Fall. COMPARISON STUDY: Abdominal CT dated 12/29/2021. TECHNIQUE: Following the IV administration of 110 cc of Optiray 320, CT scan of the abdomen and pelv is is performed from the lung bases to the proximal femora. Images are reviewed in the axial, sagitta l, and coronal planes. IV contrast was administered without complication. A dose lowering technique w as utilized adhering to the principles of ALARA. The examination is degraded by large body habitus, a nd by streak artifact from the body wall and abutting the CT gantry. FINDINGS: Lung bases: The heart is normal in size and without pericardial effusion. The lung bases are clear no ting bibasilar scarring/atelectasis. There is a small hiatal hernia. Liver: The contrast-enhanced liver is mildly enlarged measuring 18.1 cm in length. The liver demonstr ates diffusely diminished attenuation indicating steatosis. There is no intrahepatic biliary ductal d ilatation. The hepatic veins and portal veins are patent. Gallbladder: Unremarkable. Spleen: Normal in size and attenuation. Pancreas: Moderately atrophic and grossly unremarkable. Adrenal glands: Unremarkable. Kidneys: The contrast enhanced kidneys are normal in size and without hydronephrosis. The kidneys enh ance symmetrically. There is a 4 mm nonobstructing right renal calculus. Abdominal vasculature: The abdominal aorta is normal in course and caliber. Bowel: There is moderate to severe constipation. No bowel obstruction is seen. The appendix is no id entified and findings suggest previous appendectomy. Peritoneum: There is no intraperitoneal free air or abdominal ascites. Lymphadenopathy: None. Pelvic viscera: The bladder is decompressed a round a Lloyd catheter and not well evaluated. Intralum inal gas is likely related to instrumentation. The prostate gland is diminutive and heterogeneous. Skeletal structures: There is mild to moderate lumbosacral spondylosis. A chronic superior endplate c ompression deformity of L1 is unchanged. The lumbosacral spine, bony pelvis, and proximal femora appe ar intact. No lytic or blastic lesions are seen. There is avascular necrosis of the femoral heads. IMPRESSION: 1. There is no evidence of solid organ injury in the abdomen or pelvis. 2. No acute infectious or inflammatory findings are identified. 3. Hepatomegaly and hepatic steatosis. 4. Right-sided nephrolithiasis. 5. Moderate to severe constipation. 6. Avascular necrosis of the femoral heads. 7. Additional findings as above. ACT 112: Negative or not required by law. Electronically signed by: Misael Lopez M.D. 10/26/2022 1:48 PM
--- NOTE | 2022-10-26 13:55 | CT Scan Report ---
LUMBAR SPINE CT CLINICAL HISTORY: Back pain following fall. COMPARISON STUDY: Lumbar spine CT April 25, 2019. TECHNIQUE: Axial images of the lumbar spine were obtained. Sagittal and coronal reconstructions were viewed. Automated exposure control was utilized for the study. A dose lowering technique was utilize d adhering to the principles of ALARA. FINDINGS: For purposes of numbering on this exam, the L5-S1 disc space is assigned to axial image 297 of 430. There is a stable old mild L1 compression fracture involving the superior endplate. There is no retropulsion. This is unchanged since prior lumbar spine CT of April 25, 2019. No additional lumb ar spine fractures are present. There is moderate disc space narrowing with osteophytosis and vacuum disc phenomenon at L4-L5 and L5-S1. Moderate multilevel facet arthrosis is present. Central canal and neural foramen are suboptimally assessed given CT technique. There are no suspicious osseous lesions . Sacroiliac joints are intact. The abdomen and pelvis CT will be reported separately. Paravertebral soft tissues are unremarkable. IMPRESSION: 1. No acute lumbar spine fracture or subluxation. 2. No change in an old mild L1 compression fracture since prior CT. 3. Moderate multilevel degenerative changes within the lumbar spine. ACT 112: Negative or not required by law. Electronically signed by: Evelio Corbin M.D. 10/26/2022 1:53 PM
[2022-10-26] MEDS: MAGNESIUM SULFATE / D5W 1 GM/100 ML BAG IV SCH ×2 (14:00→14:28)
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
[2022-10-26] MEDS ORDERED: WARFARIN SOD 5 MG TAB PO SCH (19:21)
[2022-10-26] MEDS ORDERED: PHARMACY GLYCEMIC MGMT CONSULT PRN (19:21)
[2022-10-26] MEDS ORDERED: GLUCOSE 40% GEL 15 GM TUBE PO PRN (19:21)
[2022-10-26] MEDS ORDERED: CARBOHYDRATES FOR HYPOGLYCEMIA PO PRN (19:21)
[2022-10-26] MEDS ORDERED: SENNA 8.6 MG TAB PO PRN (19:21)
[2022-10-26] MEDS ORDERED: GLUCAGON FOR INJ 1 MG VIAL SQ PRN (19:21)
[2022-10-26] MEDS ORDERED: DEXTROSE 50% 50 ML SYRINGE IV PRN (19:21)
[2022-10-26] MEDS ORDERED: ALBUTEROL HFA 8 GM INHALER INH PRN (19:21)
[2022-10-26] MEDS ORDERED: GLUCOSE 10 TAB/TUBE PO PRN (19:21)
[2022-10-26] MEDS ORDERED: hydrOXYzine HCl 25 MG TAB PO PRN (19:21)
[2022-10-26] MEDS ORDERED: ONDANSETRON 4 MG OD TAB PO PRN (19:45)
[2022-10-26] MEDS: buprenorphine HCL 8 MG SUBL SL SCH (20:35)
[2022-10-26] MEDS: INSULIN ASPART PER UNIT SC SCH (20:36)
[2022-10-26] MEDS: DOCUSATE SODIUM 100 MG CAP PO SCH (20:37)
[2022-10-26] MEDS: DICLOFENAC SOD 1% GEL 100 GM TUBE EXT SCH (20:37)
[2022-10-26] MEDS: ATORVASTATIN 40 MG TAB PO SCH (20:39)
[2022-10-26] MEDS: METOPROLOL SUCC 25MG EXT REL TAB PO SCH (20:39)
[2022-10-26] MEDS: POLYETHYLENE (MIRALAX) 17 GM PACK PO SCH (20:40)
[2022-10-26] MEDS: guaiFENesin 600 MG TABCR PO SCH (20:40)
[2022-10-26] MEDS: ADVANCED PROBIOTIC 1250 MG CAPSULE PO SCH (20:40)
[2022-10-26] MEDS: NICOTINE 21 MG/24 HR TDSY TD SCH (20:40)
[2022-10-26] MEDS: GABAPENTIN 800 MG TAB PO SCH (20:40)
[2022-10-26] MEDS: POTASSIUM CHLORIDE CRTAB 20 MEQ TABCR PO SCH (20:41)
[2022-10-26] MEDS: CYCLOBENZAPRINE HCL 10 MG TAB PO PRN (20:47)
[2022-10-26] MEDS ORDERED: LORazepam 0.5 MG TAB PO STA (20:56)
[2022-10-26] MEDS ORDERED: FUROSEMIDE 40 MG TAB PO SCH (21:00)
[2022-10-26] MEDS ORDERED: LANTUS PER UNIT CHARGE SQ SCH (21:00)
[2022-10-26] MEDS ORDERED: UREA 20% TOP SCH (21:00)
[2022-10-26] MEDS: BENZONATATE 100 MG CAPSULE PO PRN (21:23)
--- NOTE | 2022-10-26 21:33 | Emergency Department Note ---
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 0.5 Mg Tab) 0.5 mg PO NOW STA Stop: 10/26/22 20:57 Last Admin: 10/26/22 21:23 Dose: 0.5 mg Documented By: ALVIN Imaging Data Radiologist's Impression: Chest X-Ray 10/26/22 11:12 XR chest 1V portable HISTORY: syncope COMPARISON: Chest 10/20/2022. FINDINGS: A few left basilar linear densities remain stable and favor subsegmental atelectasis or scarring. The heart remains mildly enlarged. No pleural effusions. No pneumothorax. No new focal lung consolidations identified. No evidence for pulmonary edema. IMPRESSION: No significant change compared to the prior study. No acute process. ACT 112: Negative or not required by law. Electronically signed by: Vidal Kelelr M.D. 10/26/2022 12:00 PM Abdomen/Pelvis CT 10/26/22 11:41 CT SCAN OF THE ABDOMEN AND PELVIS WITH IV CONTRAST CLINICAL HISTORY: Pain. Fall. COMPARISON STUDY: Abdominal CT dated 12/29/2021. TECHNIQUE: Following the IV administration of 110 cc of Optiray 320, CT scan of the abdomen and pelvis is performed from the lung bases to the proximal femora. Images are reviewed in the axial, sagittal, and coronal planes. IV contrast was administered without complication. A dose lowering technique was utilized adhering to the principles of ALARA. The examination is degraded by large body habitus, and by streak artifact from the body wall and abutting the CT gantry. FINDINGS: Lung bases: The heart is normal in size and without pericardial effusion. The lung bases are clear noting bibasilar scarring/atelectasis. There is a small hiatal hernia. Liver: The contrast-enhanced liver is mildly enlarged measuring 18.1 cm in length. The liver demonstrates diffusely diminished attenuation indicating steatosis. There is no intrahepatic biliary ductal dilatation. The hepatic veins and portal veins are patent. Gallbladder: Unremarkable. Spleen: Normal in size and attenuation. Pancreas: Moderately atrophic and grossly unremarkable. Adrenal glands: Unremarkable. Kidneys: The contrast enhanced kidneys are normal in size and without hydronephrosis. The kidneys enhance symmetrically. There is a 4 mm nonobstructing right renal calculus. Abdominal vasculature: The abdominal aorta is normal in course and caliber. Bowel: There is moderate to severe constipation. No bowel obstruction is seen. The appendix is no identified and findings suggest previous appendectomy. Peritoneum: There is no intraperitoneal free air or abdominal ascites. Lymphadenopathy: None. Pelvic viscera: The bladder is decompressed a round a Lloyd catheter and not well evaluated. Intraluminal gas is likely related to instrumentation. The prostate gland is diminutive and heterogeneous. Skeletal structures: There is mild to moderate lumbosacral spondylosis. A chr onic superior endplate compression deformity of L1 is unchanged. The lumbosacral spine, bony pelvis, and proximal femora appear intact. No lytic or blastic lesions are seen. There is avascular necrosis of the femoral heads. IMPRESSION: 1. There is no evidence of solid organ injury in the abdomen or pelvis. 2. No acute infectious or inflammatory findings are identified. 3. Hepatomegaly and hepatic steatosis. 4. Right-sided nephrolithiasis. 5. Moderate to severe constipation. 6. Avascular necrosis of the femoral heads. 7. Additional findings as above. ACT 112: Negative or not required by law. Electronically signed by: Misael Lopez M.D. 10/26/2022 1:[address] 10/26/22 11:41 CT head/brain wo con CLINICAL HISTORY: 52 years-old Male with syncope, trauma. Acute head trauma with syncope TECHNIQUE: Multiple axial CT images of the head were obtained without contrast. A dose lowering technique was utilized adhering to the principles of ALARA. COMPARISON: 05/14/2022. FINDINGS: No acute intracranial hemorrhage, midline shift, intracranial mass, hydrocephalus, territorial ischemia or abnormal extra-axial collection. Mild involutional changes. Mildly motion degraded exam. The calvarium is intact. Small left and trace right mastoid effusions. Severe near complete opacification of the maxillary, ethmoid and right frontal sinuses with at least moderate mucosal thickening of the sphenoid sinuses. Unremarkable soft tissues. IMPRESSION: No acute intracranial abnormality or calvarial fracture. ACT 112: Negative or not required by law. The above report was generated using voice recognition software. It may contain grammatical, syntax or spelling errors. Electronically signed by: Shelton Apodaca M.D. 10/26/2022 1:[address] 10/26/22 11:[address] CLINICAL HISTORY: Back pain following fall. COMPARISON STUDY: Lumbar spine CT April 25, 2019. TECHNIQUE: Axial images of the lumbar spine were obtained. Sagittal and coronal reconstructions were viewed. Automated exposure control was utilized for the study. A dose lowering technique was utilized adhering to the principles of ALARA. FINDINGS: For purposes of numbering on this exam, the L5-S1 disc space is assigned to axial image 297 of 430. There is a stable old mild L1 compression fracture involving the superior endplate. There is no retropulsion. This is unchanged since prior lumbar spine CT of April 25, 2019. No additional lumbar spine fractures are present. There is moderate disc space narrowing with osteophytosis and vacuum disc phenomenon at L4-L5 and L5-S1. Moderate multilevel facet arthrosis is present. Central canal and neural foramen are suboptimally assessed given CT technique. There are no suspicious osseous lesions. Sacroiliac joints are intact. The abdomen and pelvis CT will be reported separately. Paravertebral soft tissues are unremarkable. IMPRESSION: 1. No acute lumbar spine fracture or subluxation. 2. No change in an old mild L1 compression fracture since prior CT. 3. Moderate multilevel degenerative changes within the lumbar spine. ACT 112: Negative or not required by law. Electronically signed by: Evelio Corbin M.D. 10/26/2022 1:53 PM Discharge Plan Visit Data Chief Complaint: Syncope (Near Syncope) ED Provider: Enrike Ayala Discharge Problem: Syncope and collapse, COPD (chronic obstructive pulmonary disease), CHF (conges tive heart failure), Hypomagnesemia, Leukocytosis Patient Disposition: Admitted As Inpatient Discharge Instructions Interventions: ED Discharge Assessment Last Done: 10/26/22 19:21
[2022-10-27 08:09] LABS: Hematocrit (blood only) 43.1 % (42.0-52.0); Hemoglobin 13.9 g/dl (14.0-18.0); Mean Corpuscular Hemoglobin 27.4 pg (25.0-34.0); Mean Corpuscular Hgb Conc 32.3 g/dL (32.0-36.0); Mean Platelet Volume 10.3 fL (9.4-12.4); Platelet Count 269 K/uL (130-400); RDW Coefficient of Variation 19.3 % (11.5-14.5); RDW Standard Deviation 56.9 fL (36.4-46.3); Red Blood Count 5.07 M/uL (4.70-6.10); White Blood Count 21.82 K/ul (4.8-10.8)
[2022-10-27 08:27] LABS: BUN Creatinine Ratio 33.7 (10-20); Calcium 10.7 mg/dl (8.5-10.1); Creatinine Clr Calc Pharmacy 163.9 ml/min; Est GFR (African American) 110.4 ml/min; Est GFR (Non-African American) 95.3 ml/min; Magnesium 2.1 mg/dl (1.7-2.4); Potassium 3.2 mmol/L (3.5-5.1)
[2022-10-27 08:31] LABS: Basophils # (auto) 0.06 K/uL (0-0.2); Basophils % (auto) 0.3 %; Eosinophils # (auto) 0.13 K/uL (0-0.50); Eosinophils % (auto) 0.6 %; Immature Granulocytes # (auto) 0.41 K/uL (0.01-0.20); Immature Granulocytes % (auto) 1.9 %; Lymphocytes # (auto) 6.08 K/uL (1.2-3.4); Lymphocytes % (auto) 27.9 %; Monocytes # (auto) 1.59 K/uL (0.11-0.59); Monocytes % (auto) 7.3 %; Neutrophils # (auto) 13.55 K/uL (1.40-6.50)
[2022-10-27] MEDS: INSULIN ASPART PER UNIT SC SCH ×4 (08:34→22:03)
[2022-10-27 08:35] LABS: INR 1.5 (0.9-1.1); Prothrombin Time 15.8 Seconds (9.0-12.0)
[2022-10-27] MEDS: buprenorphine HCL 8 MG SUBL SL SCH ×3 (08:35→21:59)
--- NOTE | 2022-10-27 09:04 | Cardiology Consultation ---
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 (Umeclidinium [place] 62.5mcg/Blister 7 Puffs/Inhaler) 1 puffs INH DAILY [facility]; Protocol Stop: 11/26/22 08:59 Last Admin: 10/27/22 09:20 Dose: 1 puffs Warfarin Sodium (Warfarin Sod 5 Mg Tab) 5 mg PO Mo@1600 [facility] Stop: 11/25/22 19:20 Last Admin: 10/26/22 20:41 Dose: 5 mg Warfarin Sodium (Warfarin Sod 2.5 Mg Tab) 2.5 mg PO SuTuWeThFrSa@1600 [facility] Stop: 11/26/22 15:59
[2022-10-27] MEDS: BENZONATATE 100 MG CAPSULE PO PRN ×2 (09:16→16:21)
[2022-10-27] MEDS: PANTOprazole 40 MG TAB PO SCH (09:17)
[2022-10-27] MEDS: TAMSULOSIN HCL 0.4 MG CAP PO SCH (09:17)
[2022-10-27] MEDS: ISOSORBIDE DINITRATE 10 MG TAB PO SCH (09:17)
[2022-10-27] MEDS: MAGNESIUM OXIDE 400 MG TAB PO SCH (09:17)
[2022-10-27] MEDS: ASPIRIN 81 MG ECTAB PO SCH (09:17)
[2022-10-27] MEDS: ADVANCED PROBIOTIC 1250 MG CAPSULE PO SCH ×3 (09:18→22:02)
[2022-10-27] MEDS: GABAPENTIN 800 MG TAB PO SCH ×3 (09:18→22:02)
[2022-10-27] MEDS: POTASSIUM CHLORIDE CRTAB 20 MEQ TABCR PO SCH ×2 (09:18→23:30)
[2022-10-27] MEDS: FUROSEMIDE 40 MG TAB PO SCH ×2 (09:18→16:22)
[2022-10-27] MEDS: METOPROLOL SUCC 25MG EXT REL TAB PO SCH ×2 (09:19→22:02)
[2022-10-27] MEDS: SPIRONOLACTONE 25 MG TAB PO SCH (09:19)
[2022-10-27] MEDS: DULoxetine HCL 60 MG CAP PO SCH (09:19)
[2022-10-27] MEDS: FINASTERIDE 5 MG TAB PO SCH (09:19)
[2022-10-27] MEDS: FAMOTIDINE 20 MG TAB PO SCH (09:20)
[2022-10-27] MEDS: FLUTICASONE PROPIONATE NA SPR 16 GM BTL NAE SCH (09:20)
[2022-10-27] MEDS: UMECLIDINIUM BROMIDE 62.5MCG/BLISTER 7 PUFFS/INHALER INH SCH (09:20)
[2022-10-27] MEDS: POLYETHYLENE (MIRALAX) 17 GM PACK PO SCH ×2 (09:20→21:56)
[2022-10-27] MEDS: guaiFENesin 600 MG TABCR PO SCH ×2 (09:20→22:02)
[2022-10-27] MEDS: DOCUSATE SODIUM 100 MG CAP PO SCH ×2 (09:20→22:02)
[2022-10-27] MEDS: DICLOFENAC SOD 1% GEL 100 GM TUBE EXT SCH ×2 (09:21→21:55)
[2022-10-27] MEDS: CYCLOBENZAPRINE HCL 10 MG TAB PO PRN ×2 (09:23→21:59)
[2022-10-27] MEDS: PROMETHAZINE HCL 12.5 MG in SODIUM CHLORIDE 0.9% 50 ML IV PRN ×2 (10:48→23:30)
--- NOTE | 2022-10-27 12:19 | Electrocardiogram Report ---
Test Reason : Blood Pressure : / mmHG Vent. Rate : 075 BPM Atrial Rate : 075 BPM P-R Int : 150 ms QRS Dur : 106 ms QT Int : 388 ms P-R-T Axes : 058 053 074 degrees QTc Int : 433 ms Poor data quality, interpretation may be adversely affected Normal sinus rhythm Incomplete right bundle branch block Diffuse Minor Nonspecific ST abnormality Abnormal ECG When compared with ECG of 26-OCT-2022 11:34, No significant change was found Confirmed by Da Browning ([id number]) on 10/27/2022 12:19:19 PM Referred By: Roberto Askew Confirmed By:Da Browning
[2022-10-27] MEDS ORDERED: ACETAMINOPHEN 1,000 MG/100 ML VIAL IV STA (12:47)
--- NOTE | 2022-10-27 13:59 | Pharmacy Report ---
Pharmacy Glycemic Short Note 2 - Date of Service October 27, 2022 - Glycemic Short BSG Results (Last 24 hours): 10/26/22 10/27/22 10/27/22 19:51 07:14 07:21 Glucose 132 H POC Glucose 218 H 144 H 10/27/22 10/27/22 10:28 11:29 Glucose POC Glucose 114 H 105 H OUTPATIENT ANTIDIABETIC REGIMEN: * Glipizide 10mg BID * Novolog TID * Lantus 50 units HS ASSESSMENT: * Mr Milner is a 52 year old male with type 2 diabetes who presented to [facility] 10/26/22 due to syncope. * Most recent A1c: 7.8 on 10/12/22. * Following a POC BSG of 218mg/dL at ~2000, the patient was started Novolog with parameters of 10-4, and given 34 units of Lantus at bedtime. * Fasting BSG today measured at 114 mg/dl. Lunchtime BSG recorded as 105 mg/dL. * Novolog parameters were initially loosened from yesterday's regimen, however the patient was started on prednisone 20mg PO daily around 1500 today. * Novolog will be tightened to 15-4 to reduce steroid-exacerbated blood glucose elevations at mealtimes. * Will give 50 units of Lantus now with first dose of prednisone; will reevaluate basal needs in AM. PLAN FOR INPATIENT GLYCEMIC CONTROL: * Hold outpatient oral diabetes medications * Basal insulin * Lantus 50 units SQ with 1500 prednisone dose. * Bolus insulin * NovoLog per scale ACHS or Q6hrs while NPO * Goal Range: Low 110 mg/dL - High 140 mg/dL * Correction Factor: 15 mg/dL/unit * Nutritional / Prandial insulin per carb ratio of 1 unit per 4 grams CHO consumed
--- NOTE | 2022-10-27 14:32 | Hospitalist Progress Note ---
Date of Service October 27, 2022 Assessment & Plan (1) Syncope and collapse: Plan: Recurrent falls reported at home just after discharge and through the weekend. Uncertain cause and not sure if he is losing consciousness but seemed concerned about this stating he was falling without catching himself at times. CT head is negative. Mag is low at 1.6 which is a chronic issue and he is on magnesium supplementation at home. He also takes potassium supplementation with diuretics. Recent prolonged hospital stay for diuretic therapy for heart failure exacerbation. Multiple comorbidities that are uncontrolled at baseline including insulin dependent diabetes, hypertension. He is morbidly obese. EEG in am. Consult neurology and cardiology for their thoughts in this complex, morbidly obese, noncompliant patient. Overall, it appears that he is unable to take care of himself based on my review of the records. also reports there is a new baby coming along into the home in one month's time, a child of one of her children. The patient reports not wanting to go to a residential to live and his said she can't do that to him. She does endorse him going to a short stay in rehab if he qualifies, however. PT/OT ordered for evaluation to see if he meets the criteria for this assistance. 10/27/2022 Admitted with recurrent falls with possible loss of consciousness in 1 of those as per the patient No more episodes since admission Appreciate cardiology input and recommendation for Zio patch as an outpatient Has had EEG-report pending Awaiting neurology evaluation We will get PT and OT evaluation prior to discharge (2) CHF (congestive heart failure): Plan: chronic, appears compensated. Cont home diuretics. Remains euvolemic as per the rn examiner We will continue with current home medications (3) Hypomagnesemia: Plan: Repleted with 2 grams Mg IV in the ER. Cont home magox supplementation. (4) Abnormal finding on urinalysis: Plan: chronic indwelling fontaine. Patient has been counseled that this is a nidus of infection yet refuses to have it removed of different occasions. He is not septic and denies any fevers or chills at this time. No UTI symptoms or abdominal pain reported. Will await culture results. Has chronic Fontaine Will await culture and sensitivity (5) Leukocytosis: Plan: Thought secondary to recent steroid use. Still wheezing but this is consistent with his active smoking history. Will stop steroids at this time and monitor CBC in am. Peripheral smear request sent to pathology. Likely secondary to use of prednisone Minimal wheezing Was on tapering dose and will continue the taper (6) Chronic indwelling Fontaine catheter: Plan: as above. (7) COPD (chronic obstructive pulmonary disease): Plan: chronic, stable. Wheezing today in setting of active smoking. Smoking cessation advised, however, this patient has a history of being argumentative with providers and noncompliance with recommendations historically. Doubt any exacerbation but will continue the tapering dose of steroid as he was getting (8) Tobacco use: Plan: Smoking cessation advised, nicoderm patch ordered. (9) Morbid obesity: Plan: Contributing to all his chronic health problems. Lifestyle modifications recommended to reduce overall percent body fat and improve lean muscle. (10) Opioid dependence: Plan: continues on buprenorphine therapy per home regimen. No other narcotics or IV substances will be given unless he is actively vomiting or not eating. H/O abuse. Significant stool burden on CT scan today. Hold iron which can contribute. Increase scheduled Miralax. Encourage ambulation as tolerated with assistance. Will not be given any narcotics pain medication Wanted to have IV Tylenol prior to physical therapy as oral Tylenol does not work at all We will comply (11) Depression with anxiety: Plan: chronic, continue home duloxetine. Cont treating underlying pain with buprenorphine, gabapentin, Flexeril PRN all per home regimen. (12) Chronic anticoagulation: Plan: INR at goal, cont coumadin per home regimen. (13) Noncompliance: Plan: DVT proph-warfarin with therapeutic INR Full Code Dispo-to [facility] tele overnight. Workup at this time is unremarkable for cause of syncope. EEG and specialty consultations as above. PT/OT. Would anticipate he can return home tomorrow. Mala Grace DO [facility] Hospitalist Admission and Anticipated Discharge Date Admission Date: October 26, 2022 Subjective 10/27/2022 Patient was seen and examined in medical telemetry unit He was admitted with recurrent falls and questionable loss of consciousness for a second or 2 in all of those as per the patient Has had shaking episodes as per the patient and he could manage to get up from the fall with some difficulty No significant injury Has been complaining of back pain following physical therapy Review of Systems Review of Systems: All systems reviewed and are unremarkable except as noted below Musculoskeletal: Some back pain Physical Exam Physical Exam: Laying in bed comfortably Constitutional: well developed, well nourished and + morbidly obese; not ill appearing Eyes: PERRL, conjunctivae normal, anicteric sclerae ENMT: external ear and nose normal, oropharynx normal Neck: trachea midline, no thyromegaly Respiratory: no respiratory distress Auscultation: + diminished lung sounds and + crackles (Minimal crackles at the bases) Cardiovascular: Rate/Rhythm: regular rate and regular rhythm; not tachycardic Heart Sounds: normal S1 and normal S2; no murmur Extremities: + edema (Trace edema bilaterally with chronic skin changes) Gastrointestinal (Abdomen): Inspection/Auscultation: normal bowel sounds; abdomen not distended Percussion/Palpation: abdomen soft; abdomen nontender Musculoskeletal: Minimal pain at the back Neurologic: Alert, 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 Lymphatic: no cervical or axillary lymphadenopathy Results & Data Results & Data ([facility]) Vital Signs (Past 12 Hours) Vital Signs Temp Pulse Pulse Resp BP BP Pulse Ox 10/27/22 12:09 65 10/27/22 11:26 36.5 C 18 93 10/27/22 07:36 36.5 C 69 18 151/84 H 99 10/27/22 04:00 36.5 C 61 19 151/75 H 98 O2 Del Method O2 Flow Rate 10/27/22 12:09 10/27/22 11:26 Room Air 10/27/22 07:36 Nasal Cannula 4 10/27/22 04:00 Nasal Cannula 4 Laboratory Results Short CBC 10/27/22 Range/Units 07:14 WBC 21.82 H (4.8-10.8) K/ul Hgb 13.9 L (14.0-18.0) g/dl Hct 43.1 (42.0-52.0) % Plt Count 269 (130-400) K/uL BMP 10/27/22 07:14 Sodium 139 Potassium 3.2 L Chloride 94 L Carbon Dioxide 44 H* BUN 31 H Creatinine 0.92 Glucose 132 H Calcium 10.7 H Diagnostic Findings Laboratory Results WBC 21.82 K/ul (4.8-10.8) H 10/27/22 07:14 RBC 5.07 M/uL (4.70-6.10) 10/27/22 07:14 Hgb 13.9 g/dl (14.0-18.0) L 10/27/22 07:14 Hct 43.1 % (42.0-52.0) 10/27/22 07:14 MCV 85.0 fL (80.0-100.0) 10/27/22 07:14 MCH 27.4 pg (25.0-34.0) 10/27/22 07:14 MCHC 32.3 g/dL (32.0-36.0) 10/27/22 07:14 RDW Std Deviation 56.9 fL (36.4-46.3) H 10/27/22 07:14 RDW Coeff of Megan 19.3 % (11.5-14.5) H 10/27/22 07:14 Plt Count 269 K/uL (130-400) 10/27/22 07:14 MPV 10.3 fL (9.4-12.4) 10/27/22 07:14 Immature Gran % (Auto) 1.9 % 10/27/22 07:14 Neut % (Auto) 62.0 % 10/27/22 07:14 Lymph % (Auto) 27.9 % 10/27/22 07:14 [place] % (Auto) 7.3 % 10/27/22 07:14 Eos % (Auto) 0.6 % 10/27/22 07:14 Baso % (Auto) 0.3 % 10/27/22 07:14 Neut # (Auto) 13.55 K/uL (1.40-6.50) H 10/27/22 07:14 Lymph # (Auto) 6.08 K/uL (1.2-3.4) H 10/27/22 07:14 [place] # (Auto) 1.59 K/uL (0.11-0.59) H 10/27/22 07:14 Eos # (Auto) 0.13 K/uL (0-0.50) 10/27/22 07:14 Baso # (Auto) 0.06 K/uL (0-0.2) 10/27/22 07:14 Immature Gran # (Auto) 0.41 K/uL (0.01-0.20) H 10/27/22 07:14 Absolute Nucleated RBC 0.02 K/uL (0-0.12) 10/26/22 11:50 Nucleated RBC % (auto) 0.1 % 10/26/22 11:50 Peripher Smr Path Cons Cancelled 10/26/22 19:21 PT 15.8 Seconds (9.0-12.0) H 10/27/22 07:14 INR 1.5 (0.9-1.1) H 10/27/22 07:14 Sodium 139 mmol/L (136-145) 10/27/22 07:14 Potassium 3.2 mmol/L (3.5-5.1) L 10/27/22 07:14 Chloride 94 mmol/L (98-107) L 10/27/22 07:14 Carbon Dioxide 44 mmol/L (21-32) H* 10/27/22 07:14 Anion Gap 1 (3-11) L 10/27/22 07:14 BUN 31 mg/dl (6-23) H 10/27/22 07:14 Creatinine 0.92 mg/dl (0.6-1.4) 10/27/22 07:14 Est Cr Clr Drug Dosing 163.9 ml/min 10/27/22 07:14 Est GFR ( Amer) 110.4 ml/min 10/27/22 07:14 Est GFR (Non-Af Amer) 95.3 ml/min 10/27/22 07:14 BUN/Creatinine Ratio 33.7 (10-20) H 10/27/22 07:14 Glucose 132 mg/dl (70-99(Fasting)) H 10/27/22 07:14 POC Glucose 105 mg/dl (70-99) H 10/27/22 11:29 Calcium 10.7 mg/dl (8.5-10.1) H 10/27/22 07:14 Phosphorus 2.4 mg/dl (2.5-4.9) L 10/26/22 11:50 Magnesium 2.1 mg/dl (1.7-2.4) 10/27/22 07:14 Total Bilirubin 1.2 mg/dl (0.2-1.0) H 10/26/22 11:50 AST 12 U/L (13-39) L 10/26/22 11:50 ALT 28 U/L (7-52) 10/26/22 11:50 Alkaline Phosphatase 80 U/L (34-104) 10/26/22 11:50 Troponin I High Sens 6.8 pg/ml (0-20) 10/26/22 11:50 B-Natriuretic Peptide 77 pg/ml (0-100) 10/26/22 11:50 Total Protein 7.3 gm/dl (6.0-8.3) 10/26/22 11:50 Albumin 3.8 gm/dl (3.4-5.0) 10/26/22 11:50 Globulin 3.5 gm/dl (2.5-4.0) 10/26/22 11:50 Albumin/Globulin Ratio 1.1 (0.9-2) 10/26/22 11:50 TSH 0.779 uIu/ml (0.300-4.500) 10/26/22 11:50 Urine Color Yellow 10/26/22 12:10 Urine Appearance Clear (Clear) 10/26/22 12:10 Urine pH 7.5 (4.5-7.5) 10/26/22 12:10 Ur Specific [place] 1.008 (1.000-1.030) 10/26/22 12:10 Urine Protein Negative (Negative) 10/26/22 12:10 Urine Glucose (UA) Negative (Negative) 10/26/22 12:10 Urine Ketones Negative (Negative) 10/26/22 12:10 Urine Blood 2+ (Negative) H 10/26/22 12:10 Urine Nitrite Negative (Negative) 10/26/22 12:10 Urine Bilirubin Negative (Negative) 10/26/22 12:10 Urine Urobilinogen Negative (Negative) 10/26/22 12:10 Ur Leukocyte Esterase Trace (Negative) H 10/26/22 12:10 Urine WBC (Auto) 1-5 /hpf (0-5) 10/26/22 12:10 Urine RBC (Auto) 10-30 /hpf (0-4) H 10/26/22 12:10 U Hyaline Cast (Auto) 0 /lpf (0-5) 10/26/22 12:10 U Epithel Cells (Auto) 0-5 /lpf (0-5) 10/26/22 12:10 Urine Bacteria (Auto) 1+ (Negative) H 10/26/22 12:10 SARS-CoV-2, RNA, NAAT NEGATIVE (NEGATIVE) 10/26/22 11:55 Impressions Chest X-Ray 10/26/22 11:12 XR chest 1V portable HISTORY: syncope COMPARISON: Chest 10/20/2022. FINDINGS: A few left basilar linear densities remain stable and favor subsegmental atelectasis or scarring. The heart remains mildly enlarged. No pleural effusions. No pneumothorax. No new focal lung consolidations identified. No evidence for pulmonary edema. IMPRESSION: No significant change compared to the prior study. No acute process. ACT 112: Negative or not required by law. Electronically signed by: Vidal Keller M.D. 10/26/2022 12:00 PM Abdomen/Pelvis CT 10/26/22 11:41 CT SCAN OF THE ABDOMEN AND PELVIS WITH IV CONTRAST CLINICAL HISTORY: Pain. Fall. COMPARISON STUDY: Abdominal CT dated 12/29/2021. TECHNIQUE: Following the IV administration of 110 cc of Optiray 320, CT scan of the abdomen and pelvis is performed from the lung bases to the proximal femora. Images are reviewed in the axial, sagittal, and coronal planes. IV contrast was administered without complication. A dose lowering technique was utilized adhering to the principles of ALARA. The examination is degraded by large body habitus, and by streak artifact from the body wall and abutting the CT gantry. FINDINGS: Lung bases: The heart is normal in size and without pericardial effusion. The lung bases are clear noting bibasilar scarring/atelectasis. There is a small hiatal hernia. Liver: The contrast-enhanced liver is mildly enlarged measuring 18.1 cm in length. The liver demonstrates diffusely diminished attenuation indicating steatosis. There is no intrahepatic biliary ductal dilatation. The hepatic veins and portal veins are patent. Gallbladder: Unremarkable. Spleen: Normal in size and attenuation. Pancreas: Moderately atrophic and grossly unremarkable. Adrenal glands: Unremarkable. Kidneys: The contrast enhanced kidneys are normal in size and without hydronephrosis. The kidneys enhance symmetrically. There is a 4 mm nonobstructing right renal calculus. Abdominal vasculature: The abdominal aorta is normal in course and caliber. Bowel: There is moderate to severe constipation. No bowel obstruction is seen. The appendix is no identified and findings suggest previous appendectomy. Peritoneum: There is no intraperitoneal free air or abdominal ascites. Lymphadenopathy: None. Pelvic viscera: The bladder is decompressed a round a Fontaine catheter and not well evaluated. Intraluminal gas is likely related to instrumentation. The prostate gland is diminutive and heterogeneous. Skeletal structures: There is mild to moderate lumbosacral spondylosis. A chronic superior endplate compression deformity of L1 is unchanged. The lumbosacral spine, bony pelvis, and proximal femora appear intact. No lytic or blastic lesions are seen. There is avascular necrosis of the femoral heads. IMPRESSION: 1. There is no evidence of solid organ injury in the abdomen or pelvis. 2. No acute infectious or inflammatory findings are identified. 3. Hepatomegaly and hepatic steatosis. 4. Right-sided nephrolithiasis. 5. Moderate to severe constipation. 6. Avascular necrosis of the femoral heads. 7. Additional findings as above. ACT 112: Negative or not required by law. Electronically signed by: Misael Lopez M.D. 10/26/2022 1:[address] 10/26/22 11:41 CT head/brain wo con CLINICAL HISTORY: 52 years-old Male with syncope, trauma. Acute head trauma with syncope TECHNIQUE: Multiple axial CT images of the head were obtained without contrast. A dose lowering technique was utilized adhering to the principles of ALARA. COMPARISON: 05/14/2022. FINDINGS: No acute intracranial hemorrhage, midline shift, intracranial mass, hydrocephalus, territorial ischemia or abnormal extra-axial collection. Mild involutional changes. Mildly motion degraded exam. The calvarium is intact. Small left and trace right mastoid effusions. Severe near complete opacification of the maxillary, ethmoid and right frontal sinuses with at least moderate mucosal thickening of the sphenoid sinuses. Unremarkable soft tissues. IMPRESSION: No acute intracranial abnormality or calvarial fracture. ACT 112: Negative or not required by law. The above report was generated using voice recognition software. It may contain grammatical, syntax or spelling errors. Electronically signed by: Shelton Apodaca M.D. 10/26/2022 1:[address] 10/26/22 11:[address] CLINICAL HISTORY: Back pain following fall. COMPARISON STUDY: Lumbar spine CT April 25, 2019. TECHNIQUE: Axial images of the lumbar spine were obtained. Sagittal and coronal reconstructions were viewed. Automated exposure control was utilized for the study. A dose lowering technique was utilized adhering to the principles of ALARA. FINDINGS: For purposes of numbering on this exam, the L5-S1 disc space is assigned to axial image 297 of 430. There is a stable old mild L1 compression fracture involving the superior endplate. There is no retropulsion. This is unchanged since prior lumbar spine CT of April 25, 2019. No additional lumbar spine fractures are present. There is moderate disc space narrowing with osteophytosis and vacuum disc phenomenon at L4-L5 and L5-S1. Moderate multilevel facet arthrosis is present. Central canal and neural foramen are suboptimally assessed given CT technique. There are no suspicious osseous lesions. Sacroiliac joints are intact. The abdomen and pelvis CT will be reported separately. Paravertebral soft tissues are unremarkable. IMPRESSION: 1. No acute lumbar spine fracture or subluxation. 2. No change in an old mild L1 compression fracture since prior CT. 3. Moderate multilevel degenerative changes within the lumbar spine. ACT 112: Negative or not required by law. Electronically signed by: Evelio Corbin M.D. 10/26/2022 1:53 PM (1) COPD (chronic obstructive pulmonary disease) COPD type: unspecified COPD Qualified Code(s): J44.9 - Chronic obstructive pulmonary disease, unspecified
[2022-10-27] MEDS ORDERED: LANTUS PER UNIT CHARGE SQ ONE (15:00)
--- NOTE | 2022-10-27 15:47 | Electroencephalogram ---
EEG Procedure Note Date of Service October 27, 2022 Start / End Times Start Time: 08:43 End Time: 09:03 Referring Physician Mala Grace MD History Recurrent syncope and collapse. Home Medication List Medication Instructions Recorded Confirmed Type fluticasone propionate 50 2 spray intranasal DAILY 06/01/18 10/26/22 History mcg/actuation nasal spray,suspension aspirin 81 mg tablet,delayed 81 mg PO QAM 11/17/18 10/26/22 History release (Ecotrin Low Strength) nitroglycerin 0.4 mg sublingual 0.4 mg sublingual DIRECTED PRN 12/09/18 10/26/22 History tablet (Nitrostat) CHEST PAIN nystatin 100,000 unit/gram topical 1 applic topical TID PRN Skin 12/09/18 History powder Irritation polyethylene glycol 3350 17 gram 17 g PO QAM 12/09/18 10/26/22 History oral powder packet (Miralax) finasteride 5 mg tablet 5 mg PO QAM 03/03/19 10/26/22 History cyclobenzaprine 10 mg tablet 10 mg PO BID PRN Muscle Spasm 03/10/19 10/26/22 History metoprolol succinate 50 mg 75 mg PO BID 08/01/19 10/26/22 History tablet,extended release 24 hr spironolactone 25 mg tablet 25 mg PO QAM 08/01/19 10/26/22 History docusate sodium 100 mg capsule 100 mg PO BID 08/11/19 10/26/22 History ipratropium 0.5 mg-albuterol 3 mg 3 ml inhalation Q6H PRN Shortness 08/11/19 10/26/22 History (2.5 mg base)/3 mL nebulization Of Breath Or Wheezing soln atorvastatin 80 mg tablet 80 mg PO QPM 12/07/19 10/26/22 History folic acid 1 mg tablet 1 mg PO QAM 12/07/19 10/26/22 History furosemide 40 mg tablet (Lasix) 40 mg PO BID 12/07/19 10/26/22 History sennosides 8.6 mg tablet (senna) 8.6 mg PO DAILY PRN Constipation 12/07/19 10/26/22 History albuterol sulfate 90 mcg/actuation 2 puff inhalation Q4 PRN Dyspnea 02/17/20 10/26/22 History aerosol inhaler omeprazole 20 mg capsule,delayed 20 mg PO DAILYBB 04/14/20 10/26/22 History release gabapentin 800 mg tablet 800 mg PO TID 05/30/20 10/26/22 History duloxetine 60 mg capsule,delayed 60 mg PO DAILY 07/05/20 10/26/22 History release famotidine 20 mg tablet 20 mg PO DAILY 07/05/20 10/26/22 History buprenorphine HCl 8 mg sublingual 8 mg sublingual TID 10/31/20 10/26/22 History tablet glipizide 10 mg tablet 10 mg PO BID 01/12/21 10/26/22 History Lactobacillus acidoph-L.bulgaricus 1 tab PO TID #30 tabs 05/09/21 10/26/22 Rx 1 million cell chewable tablet (Lactinex) ferrous sulfate 325 mg (65 mg 325 mg PO QAM 10/24/21 10/26/22 History iron) tablet hydroxyzine HCl 25 mg tablet 25 mg PO QID PRN Anxiety 10/24/21 10/26/22 History magnesium oxide 400 mg (241.3 mg 400 mg PO DAILY 10/24/21 10/26/22 History magnesium) tablet urea 20 % topical cream 1 applic topical BID Dry Areas on 10/24/21 10/26/22 History (Ureacin-20) Soles and Legs ondansetron HCl 4 mg tablet 4 mg PO Q8H PRN NAUSEA/VOMITING 12/17/21 10/26/22 History benzonatate 100 mg capsule 100 mg PO TID PRN cough #10 caps 01/02/22 10/26/22 Rx isosorbide dinitrate 30 mg tablet 30 mg PO DAILY 02/19/22 10/26/22 History tamsulosin 0.4 mg capsule (Flomax) 0.8 mg PO QAM #180 caps 03/10/22 10/26/22 Rx guaifenesin 600 mg tablet, 1,200 mg PO BID 07/29/22 10/26/22 History extended release 12 hr (Mucinex) potassium chloride 20 mEq 20 meq PO BID 07/29/22 10/26/22 History tablet,extended release warfarin 5 mg tablet See Rx Instructions .Route .COMPLEX 07/29/22 10/26/22 History insulin aspart U-100 100 unit/mL 1 unit (0.01 mL) subcut TIDM #30 mL 08/05/22 10/26/22 Rx (3 mL) subcutaneous pen (Novolog FlexPen U-100 Insulin aspart) insulin glargine 100 unit/mL (3 50 unit (0.5 mL) SC HS 30 days #15 08/05/22 10/26/22 Rx mL) subcutaneous pen (Lantus mL Solostar U-100 Insulin) lorazepam 0.5 mg tablet 0.5 mg PO Q8 PRN Anxiety #6 tabs 08/05/22 10/26/22 Rx tiotropium 2.5 mcg-olodaterol 2.5 2 puff inhalation DAILY #4 grams 08/24/22 10/26/22 Rx mcg/actuation mist for inhalation (Stiolto Respimat) metolazone 2.5 mg tablet 2.5 mg PO 3XWK 10/11/22 10/26/22 History codeine 10 mg-guaifenesin 100 mg/5 5 ml PO Q6H PRN cough #120 mL 10/22/22 10/26/22 Rx mL oral liquid (Guaiatussin AC) diclofenac sodium 1 % topical gel 2 g EXT BID #50 grams 10/22/22 10/26/22 Rx (Voltaren Arthritis Pain) nicotine 21 mg/24 hr daily 21 mg transdermal HS 30 days #30 ea 10/22/22 10/26/22 Rx transdermal patch (Nicoderm CQ) prednisone 10 mg tablet 10 mg PO UD #30 tabs 10/22/22 10/26/22 Rx Inpatient Medication List Aspirin (Aspirin 81 Mg Ectab) 81 mg PO QAM [facility] Stop: 11/26/22 08:59 Last Admin: 10/27/22 09:17 Dose: 81 mg Documented By: [id number] Atorvastatin Calcium (Atorvastatin 40 Mg Tab) 80 mg PO QPM [facility] Stop: 11/25/22 20:59 Last Admin: 10/26/22 20:39 Dose: 80 mg Documented By: ALVIN Benzonatate (Benzonatate 100 Mg Capsule) 100 mg PO TID PRN PRN Reason: Cough Stop: 11/25/22 20:56 Last Admin: 10/27/22 09:16 Dose: 100 mg Documented By: [id number] Admin: 10/26/22 21:23 Dose: 100 mg Documented By: ALVIN Buprenorphine HCl (Buprenorphine Hcl 8 Mg Subl) 8 mg SL TID [facility] Stop: 11/25/22 20:59 Last Admin: 10/27/22 13:25 Dose: 8 mg Documented By: [id number] Admin: 10/27/22 08:35 Dose: 8 mg Documented By: [id number] Admin: 10/26/22 20:35 Dose: 8 mg Documented By: ALVIN Cyclobenzaprine HCl (Cyclobenzaprine Hcl 10 Mg Tab) 10 mg PO BID PRN PRN Reason: Muscle Spasm Stop: 11/25/22 19:20 Last Admin: 10/27/22 09:23 Dose: 10 mg Documented By: [id number] Admin: 10/26/22 20:47 Dose: 10 mg Documented By: ALVIN Diclofenac Sodium (Diclofenac Sod 1% Gel 100 Gm Tube) 2 gm EXT BID [facility]; Protocol Stop: 11/25/22 20:59 Last Admin: 10/27/22 09:21 Dose: 2 gm Documented By: [id number] Admin: 10/26/22 20:37 Dose: 2 gm Documented By: ALVIN Docusate Sodium (Docusate Sodium 100 Mg Cap) 100 mg PO BID [facility] Stop: 11/25/22 20:59 Last Admin: 10/27/22 09:20 Dose: 100 mg Documented By: [id number] Admin: 10/26/22 20:37 Dose: 100 mg Documented By: ALVIN Duloxetine HCl (Duloxetine Hcl 60 Mg Cap) 60 mg PO DAILY [facility] Stop: 11/26/22 08:59 Last Admin: 10/27/22 09:19 Dose: 60 mg Documented By: [id number] Famotidine (Famotidine 20 Mg Tab) 20 mg PO DAILY [facility] Stop: 11/26/22 08:59 Last Admin: 10/27/22 09:20 Dose: 20 mg Documented By: [id number] Finasteride (Finasteride 5 Mg Tab) 5 mg PO QAM [facility] Stop: 11/26/22 08:59 Last Admin: 10/27/22 09:19 Dose: 5 mg Documented By: [id number] Fluticasone Propionate (Fluticasone Propionate Na Spr 16 Gm Btl) 2 sprays HANSA DAILY [facility] Stop: 11/26/22 08:59 Last Admin: 10/27/22 09:20 Dose: 2 sprays Documented By: [id number] Furosemide (Furosemide 40 Mg Tab) 40 mg PO BID17 [facility] Stop: 11/25/22 20:59 Last Admin: 10/27/22 09:18 Dose: 40 mg Documented By: [id number] Gabapentin (Gabapentin 800 Mg Tab) 800 mg PO TID [facility] Stop: 11/25/22 20:59 Last Admin: 10/27/22 13:16 Dose: 800 mg Documented By: [id number] Admin: 10/27/22 09:18 Dose: 800 mg Documented By: [id number] Admin: 10/26/22 20:40 Dose: 800 mg Documented By: ALVIN Guaifenesin (Guaifenesin 600 Mg Tabcr) 1,200 mg PO BID [facility] Stop: 11/25/22 20:59 Last Admin: 10/27/22 09:20 Dose: 1,200 mg Documented By: [id number] Admin: 10/26/22 20:40 Dose: 1,200 mg Documented By: ALVIN Promethazine HCl 12.5 mg/ (Sodium Chloride) 50.5 mls @ 202 mls/hr IV Q6H PRN PRN Reason: Nausea And Vomiting Stop: 11/26/22 10:30 Last Infusion: 10/27/22 11:09 Dose: 0 mls/hr Documented By: [id number] Admin: 10/27/22 10:48 Dose: 202 mls/hr Documented By: [id number] Insulin Aspart (Insulin Aspart Per Unit) 0 units SC ACHS [facility] Stop: 11/25/22 20:59 Last Admin: 10/27/22 12:06 Dose: 12 units Documented By: [id number] Co-signed By: [email or web address] Admin: 10/27/22 08:34 Dose: 30 units Documented By: [id number] Co-signed By: SM Admin: 10/26/22 20:36 Dose: 30 units Documented By: ALVIN Co-signed By: DMM Isosorbide Dinitrate (Isosorbide Dinitrate 10 Mg Tab) 30 mg PO DAILY [facility] Stop: 11/26/22 08:59 Last Admin: 10/27/22 09:17 Dose: 30 mg Documented By: [id number] Lactobacillus Acidophilus (Advanced Probiotic 1250 Mg Capsule) 1 cap PO TID [facility] Stop: 11/25/22 20:59 Last Admin: 10/27/22 13:16 Dose: 1 cap Documented By: [id number] Admin: 10/27/22 09:18 Dose: 1 cap Documented By: [id number] Admin: 10/26/22 20:40 Dose: 1 cap Documented By: ALVIN Magnesium Oxide (Magnesium Oxide 400 Mg Tab) 400 mg PO DAILY [facility] Stop: 11/26/22 08:59 Last Admin: 10/27/22 09:17 Dose: 400 mg Documented By: [id number] Metoprolol Succinate (Metoprolol Succ 25mg Ext Rel Tab) 75 mg PO BID [facility] Stop: 11/25/22 20:59 Last Admin: 10/27/22 09:19 Dose: 75 mg Documented By: [id number] Admin: 10/26/22 20:39 Dose: 75 mg Documented By: ALVIN Nicotine (Nicotine 21 Mg/24 Hr Tdsy) 21 mg TD HS [facility] Stop: 11/25/22 20:59 Last Admin: 10/26/22 20:40 Dose: 21 mg Documented By: ALVIN Pantoprazole Sodium ([facility]antoprazole 40 Mg Tab) [facility] Stop: 11/26/22 06:29 Last Admin: 10/27/22 09:17 Dose: 40 mg Documented By: [id number] Polyethylene Glycol (Polyethylene (Miralax) 17 Gm Pack) 17 gm PO BID [facility] Stop: 11/25/22 20:59 Last Admin: 10/27/22 09:20 Dose: 17 gm Documented By: [id number] Admin: 10/26/22 20:40 Dose: Not Given Documented By: ALVIN Potassium Chloride (Potassium Chloride Crtab 20 Meq Tabcr) 20 meq PO BID [facility] Stop: 11/25/22 20:59 Last Admin: 10/27/22 09:18 Dose: 20 meq Documented By: [id number] Admin: 10/26/22 20:41 Dose: 20 meq Documented By: ALVIN Spironolactone (Spironolactone 25 Mg Tab) 25 mg PO QAM [facility] Stop: 11/26/22 08:59 Last Admin: 10/27/22 09:19 Dose: 25 mg Documented By: [id number] Tamsulosin HCl (Tamsulosin Hcl 0.4 Mg Cap) 0.8 mg PO QAM [facility] Stop: 11/26/22 08:59 Last Admin: 10/27/22 09:17 Dose: 0.8 mg Documented By: [id number] Umeclidinium [place] (Umeclidinium [place] 62.5mcg/Blister 7 Puffs/Inhaler) 1 puffs INH DAILY [facility]; Protocol Stop: 11/26/22 08:59 Last Admin: 10/27/22 09:20 Dose: 1 puffs Documented By: [id number] Warfarin Sodium (Warfarin Sod 5 Mg Tab) 5 mg PO Mo@1600 [facility] Stop: 11/25/22 19:20 Last Admin: 10/26/22 20:41 Dose: 5 mg Documented By: ALVIN Discontinued Medications Albuterol (Albut/Ipratrop 3mg/0.5mg Neb 3 Ml Vial) 3 ml NEB NOW STA; Protocol Stop: 10/26/22 11:41 Last Admin: 10/26/22 11:58 Dose: 3 ml Documented By: DEVORA Acetaminophen (Jonaatnirmev) 1,000 mg in 100 mls @ 400 mls/hr IV NOW STA Stop: 10/26/22 11:54 Last Infusion: 10/26/22 12:15 Dose: 0 mls/hr Documented By: Admin: 10/26/22 11:58 Dose: 400 mls/hr Documented By: DEVORA Sodium Chloride (Nss) 500 mls @ 999 mls/hr IV .Q31M ONE Stop: 10/26/22 12:15 Last Infusion: 10/26/22 12:37 Dose: 0 mls/hr Documented By: Admin: 10/26/22 11:58 Dose: 999 mls/hr Documented By: DEVORA Magnesium Sulfate/Dextrose (Magnesium Sulfate / D5w) 1 gm in 100 mls @ 100 mls/hr IV Q1H [facility] Stop: 10/26/22 15:10 Last Infusion: 10/26/22 15:07 Dose: 0 mls/hr Documented By: Admin: 10/26/22 14:28 Dose: 200 mls/hr Documented By: Infusion: 10/26/22 14:28 Dose: 200 mls/hr Documented By: Admin: 10/26/22 14:00 Dose: 200 mls/hr Documented By: ISHAAN Acetaminophen (Jonatanirmev) 1,000 mg in 100 mls @ 400 mls/hr IV NOW STA Stop: 10/27/22 13:01 Last Infusion: 10/27/22 13:35 Dose: 0 mls/hr Documented By: [id number] Admin: 10/27/22 13:12 Dose: 400 mls/hr Documented By: [id number] Insulin Glargine (Lantus Per Unit Charge) 34 units SQ BID [facility] Stop: 11/25/22 20:59 Last Admin: 10/26/22 20:35 Dose: 34 units Documented By: ALVIN Co-signed By: [email or web address] Ioversol (Optiray 320 500ml) 110 ml IV ONCE ONE Stop: 10/26/22 13:23 Last Admin: 10/26/22 13:23 Dose: 110 ml Documented By: KAREN Lorazepam (Lorazepam 0.5 Mg Tab) 0.5 mg PO NOW STA Stop: 10/26/22 20:57 Last Admin: 10/26/22 21:23 Dose: 0.5 mg Documented By: ALVIN Miscellaneous (Remove Nicoderm Patch) 1 each N/A DAILY@0859 [facility] Stop: 11/26/22 08:58 Last Admin: 10/27/22 10:22 Dose: Not Given Documented By: [id number] Description This is a 21 electrode EEG with a single channel dedicated to limited EKG. The electrodes were placed in accordance with the International 10-20 system. Interpretation First half of EEG recording is somewhat limited because of excessive muscle contraction artifact. Background activity shows good organization without focal slowing. There is 8 to 9 Hz, moderate amplitude posterior wakeful activity which attenuates with eye opening bilaterally. Photic stimulations induce posterior driving responses bilaterally. Hyperventilation is not attempted. Sleep is not captured during the study. There are no electrographic seizures, epileptogenic discharges, asymmetries, or other abnormal discharges. Impression: This EEG, recorded in wakefulness only, is normal. There is no electrographic seizure or epileptogenic discharge. Clinical Correlation This is a somewhat limited study because of excessive muscle contraction artifacts. If clinically indicated, a follow-up study with better relaxation, prolonged recording and sleep deprivation might offer further information.
[2022-10-27] MEDS: predniSONE 20 MG TAB PO SCH (16:20)
[2022-10-27] MEDS: WARFARIN SOD 2.5 MG TAB PO SCH (16:21)
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
[2022-10-27] MEDS ORDERED: LANTUS PER UNIT CHARGE SQ SCH (21:00)
[2022-10-27] MEDS: ATORVASTATIN 40 MG TAB PO SCH (22:02)
[2022-10-27] MEDS: NICOTINE 21 MG/24 HR TDSY TD SCH (22:03)
[2022-10-27] MEDS ORDERED: LORazepam 0.5 MG TAB PO STA (23:09)
[2022-10-28] MEDS: BENZONATATE 100 MG CAPSULE PO PRN ×2 (03:08→08:13)
[2022-10-28] MEDS: PANTOprazole 40 MG TAB PO SCH (05:47)
[2022-10-28 07:04] LABS: Basophils # (auto) 0.06 K/uL (0-0.2); Basophils % (auto) 0.3 %; Eosinophils # (auto) 0.05 K/uL (0-0.50); Eosinophils % (auto) 0.2 %; Hematocrit (blood only) 40.9 % (42.0-52.0); Hemoglobin 13.5 g/dl (14.0-18.0); Immature Granulocytes # (auto) 0.33 K/uL (0.01-0.20); Immature Granulocytes % (auto) 1.6 %; Lymphocytes # (auto) 4.44 K/uL (1.2-3.4); Lymphocytes % (auto) 22.2 %; Mean Corpuscular Hemoglobin 27.7 pg (25.0-34.0); Mean Corpuscular Volume 83.8 fL (80.0-100.0); Mean Platelet Volume 10.2 fL (9.4-12.4); Monocytes # (auto) 1.29 K/uL (0.11-0.59); Monocytes % (auto) 6.4 %; Neutrophils # (auto) 13.85 K/uL (1.40-6.50); Neutrophils % (auto) 69.3 %; Platelet Count 251 K/uL (130-400); RDW Coefficient of Variation 19.4 % (11.5-14.5); RDW Standard Deviation 57.3 fL (36.4-46.3); Red Blood Count 4.88 M/uL (4.70-6.10); White Blood Count 20.02 K/ul (4.8-10.8)
[2022-10-28 07:20] LABS: BUN Creatinine Ratio 33.7 (10-20); Calcium 9.7 mg/dl (8.5-10.1); Creatinine Clr Calc Pharmacy 156.1 ml/min; Est GFR (African American) 102.3 ml/min; Est GFR (Non-African American) 88.3 ml/min; Potassium 3.4 mmol/L (3.5-5.1)
[2022-10-28 07:31] LABS: INR 1.9 (0.9-1.1); Prothrombin Time 19.1 Seconds (9.0-12.0)
[2022-10-28] MEDS: INSULIN ASPART PER UNIT SC SCH ×4 (08:12→21:37)
[2022-10-28] MEDS: buprenorphine HCL 8 MG SUBL SL SCH ×3 (08:13→21:31)
[2022-10-28] MEDS: CYCLOBENZAPRINE HCL 10 MG TAB PO PRN ×2 (08:13→21:30)
[2022-10-28] MEDS: LANTUS PER UNIT CHARGE SQ SCH ×2 (08:13→21:37)
[2022-10-28] MEDS: METOPROLOL SUCC 25MG EXT REL TAB PO SCH ×2 (08:14→21:30)
[2022-10-28] MEDS: guaiFENesin 600 MG TABCR PO SCH ×2 (08:15→21:31)
[2022-10-28] MEDS: DOCUSATE SODIUM 100 MG CAP PO SCH ×2 (08:15→21:31)
[2022-10-28] MEDS: ADVANCED PROBIOTIC 1250 MG CAPSULE PO SCH ×3 (08:15→21:31)
[2022-10-28] MEDS: GABAPENTIN 800 MG TAB PO SCH ×3 (08:16→21:33)
[2022-10-28] MEDS: FAMOTIDINE 20 MG TAB PO SCH (08:16)
[2022-10-28] MEDS: MAGNESIUM OXIDE 400 MG TAB PO SCH (08:16)
[2022-10-28] MEDS: FINASTERIDE 5 MG TAB PO SCH (08:16)
[2022-10-28] MEDS: ISOSORBIDE DINITRATE 10 MG TAB PO SCH (08:16)
[2022-10-28] MEDS: FUROSEMIDE 40 MG TAB PO SCH ×2 (08:17→16:15)
[2022-10-28] MEDS: DULoxetine HCL 60 MG CAP PO SCH (08:17)
[2022-10-28] MEDS: SPIRONOLACTONE 25 MG TAB PO SCH (08:17)
[2022-10-28] MEDS: TAMSULOSIN HCL 0.4 MG CAP PO SCH (08:17)
[2022-10-28] MEDS: ASPIRIN 81 MG ECTAB PO SCH (08:17)
[2022-10-28] MEDS: predniSONE 20 MG TAB PO SCH (08:18)
[2022-10-28] MEDS: UMECLIDINIUM BROMIDE 62.5MCG/BLISTER 7 PUFFS/INHALER INH SCH (08:18)
[2022-10-28] MEDS: DICLOFENAC SOD 1% GEL 100 GM TUBE EXT SCH ×2 (08:19→21:31)
[2022-10-28] MEDS: FLUTICASONE PROPIONATE NA SPR 16 GM BTL NAE SCH (08:20)
[2022-10-28] MEDS: POLYETHYLENE (MIRALAX) 17 GM PACK PO SCH ×2 (08:24→21:33)
[2022-10-28] MEDS: POTASSIUM CHLORIDE CRTAB 20 MEQ TABCR PO SCH ×2 (08:24→21:30)
[2022-10-28] MEDS ORDERED: POTASSIUM CHLORIDE CRTAB 20 MEQ TABCR PO STA (08:31)
[2022-10-28] MEDS ORDERED: metOLazone 2.5 MG TABLET PO SCH (09:00)
--- NOTE | 2022-10-28 10:14 | Cardiology Progress Note ---
Date of Service October 28, 2022 Assessment & Plan (1) Syncope and collapse: (2) Leukocytosis: (3) Hypomagnesemia: (4) Hypokalemia: (5) (HFpEF) heart failure with preserved ejection fraction: Plan Patient reporting episodes of possible syncope vs falls/weakness at home. It is unclear whether or not patient loses consciousness. Possible "shaking" during spells and family concerned with seizure like activity. Neuro consulted. No recurrent symptoms since admission. Recommend PT/OT and monitor oxygen levels with exertion today. Encourage use of supplemental O2. Recommend orthostatic vital signs. No arrhythmias noted throughout admission on telemetry. EKG is without acute changes. BP is controlled. Patient appears euvolemic. He should continue all outpatient medications. Arrange 2 week ZIO monitor to be placed after discharge. No further cardiac testing warranted at this time Case discussed with Dr. Penn. Admission and Anticipated Discharge Date Admission Date: October 26, 2022 Supervising Physician Co-Signing Physician Notes Patient seen examined the bedside. No recurrent lightheadedness or dizziness since admission. Telemetry reveals sinus rhythm. No dysrhythmias. Expiratory wheeze present today. No orthopnea or PND. No significant lower extremity edema. PE: VSS. Gen: NAD, obese, AAOx3. Heart: Regular rhythm, normal S1-S2. No murmur. Lungs: Expiratory wheezing bilateral. No rales. Extremities: Bilateral stasis changes without significant edema. A/P: Agree with above PA-C history, physical exam, assessment and plan. Etiology of the patient symptoms unclear. No dysrhythmias on telemetry. Possibly related to volume depletion in the setting of recent hospitalization and significant diuresis. Blood pressure controlled. No documented hypotension. Assess orthostatic blood pressure every shift. Encourage ambulation with assistance and physical therapy. Outpatient 14 day Zio monitor. Subjective Patient resting in bed. Notes sore throat and wheezing this morning. No worsening edema. Ambulated with nurse and PT yesterday, but no recurrent symptoms of syncope or near syncope. Review of Systems Review of Systems: All systems reviewed & are unremarkable except as noted in HPI & below Physical Exam Constitutional: WD/WN, vitals as above + morbidly obese Neck: + thick neck Respiratory: normal respiratory effort and + cough Auscultation: + diminished lung sounds; no crackles and no rales Cardiovascular: Rate/Rhythm: regular rate and regular rhythm Heart Sounds: no murmur (distant heart sounds) Vessels: no JVD Extremities: + edema (trace b/l edema with chronic venous stasis) Gastrointestinal (Abdomen): normal bowel sounds, soft, nontender, no hepatosplenomegaly Neurologic: PERRL, EOMI, accommodation nl, no face palsy, no dysarthria Results & Data ([facility]) Vital Signs (Past 12 Hours) Vital Signs Temp Pulse Pulse Resp BP Pulse Ox O2 Del Method 10/28/22 07:30 59 L 10/28/22 07:00 36.4 C L 67 16 151/85 H 94 Room Air 10/28/22 02:59 36.7 C 65 20 160/93 H 99 Nasal Cannula 10/28/22 01:15 81 10/28/22 00:25 Nasal Cannula 10/27/22 23:07 37.1 C 72 18 118/72 95 Nasal Cannula O2 Flow Rate 10/28/22 07:30 10/28/22 07:00 10/28/22 02:59 4 10/28/22 01:15 10/28/22 00:25 4 10/27/22 23:07 4 Laboratory Results Coagulation 10/28/22 Range/Units 06:01 PT 19.1 H (9.0-12.0) Seconds CBC 10/28/22 Range/Units 06:01 WBC 20.02 H (4.8-10.8) K/ul RBC 4.88 (4.70-6.10) M/uL Hgb 13.5 L (14.0-18.0) g/dl Hct 40.9 L (42.0-52.0) % Plt Count 251 (130-400) K/uL Neut # (Auto) 13.85 H (1.40-6.50) K/uL Lymph # (Auto) 4.44 H (1.2-3.4) K/uL [place] # (Auto) 1.29 H (0.11-0.59) K/uL Eos # (Auto) 0.05 (0-0.50) K/uL Baso # (Auto) 0.06 (0-0.2) K/uL Comprehensive Metabolic Panel 10/28/22 Range/Units 06:01 Sodium 137 (136-145) mmol/L Potassium 3.4 L (3.5-5.1) mmol/L Chloride 95 L (98-107) mmol/L Carbon Dioxide 39 H (21-32) mmol/L BUN 33 H (6-23) mg/dl Creatinine 0.98 (0.6-1.4) mg/dl Glucose 185 H (70-99(Fasting)) mg/dl Calcium 9.7 (8.5-10.1) mg/dl Intake and Output 10/27/22 10/28/22 10/28/22 22:59 06:59 14:59 Intake Total 600 / 1421.0 130.5 / 1421.0 Output Total 1250 / 3000 800 / 3000 Balance -650 / -1579.0 -669.5 / -1579.0 Intake: IV 50.5 / 201.0 Promethazine HCl 12.5 mg In 50.5 / 101.0 Sodium Chloride 0.9% 50 ml @ 202 mls/hr IV Q6H PRN Rx#: [id number] Oral 600 / 1220 80 / 1220 Output: Urine Amount (Catheter) 1249 / 0 800 / 0 Lloyd/Indwelling 125 / 0 800 / 0 Other: Weight 196.5 kg Weight Measurement Method Built in [facility] Diagnostic Findings Telemetry reviewed - Normal sinus rhythm. No arrhythmias. Medications Administered Current Inpatient Medications Albuterol (Albuterol Hfa 8 Gm Inhaler) 2 puffs INH Q4 PRN; Protocol PRN Reason: Dyspnea Stop: 11/25/22 19:20 Aspirin (Aspirin 81 Mg Ectab) 81 mg PO QAM [facility] Stop: 11/26/22 08:59 Last Admin: 10/28/22 08:17 Dose: 81 mg Atorvastatin Calcium (Atorvastatin 40 Mg Tab) 80 mg PO QPM [facility] Stop: 11/25/22 20:59 Last Admin: 10/27/22 22:02 Dose: 80 mg Benzonatate (Benzonatate 100 Mg Capsule) 100 mg PO TID PRN PRN Reason: Cough Stop: 11/25/22 20:56 Last Admin: 10/28/22 08:13 Dose: 100 mg Buprenorphine HCl (Buprenorphine Hcl 8 Mg Subl) 8 mg SL TID [facility] Stop: 11/25/22 20:59 Last Admin: 10/28/22 08:13 Dose: 8 mg Cyclobenzaprine HCl (Cyclobenzaprine Hcl 10 Mg Tab) 10 mg PO BID PRN PRN Reason: Muscle Spasm Stop: 11/25/22 19:20 Last Admin: 10/28/22 08:13 Dose: 10 mg Dextrose (Dextrose 50% 50 Ml Syringe) 25 - 50 ml IV UD PRN; Protocol PRN Reason: Hypoglycemia Protocol Stop: 11/25/22 19:20 Diclofenac Sodium (Diclofenac Sod 1% Gel 100 Gm Tube) 2 gm EXT BID EMPERATRIZ; Protocol Stop: 11/25/22 20:59 Last Admin: 10/28/22 08:19 Dose: 2 gm Docusate Sodium (Docusate Sodium 100 Mg Cap) 100 mg PO BID [facility] Stop: 11/25/22 20:59 Last Admin: 10/28/22 08:15 Dose: 100 mg Duloxetine HCl (Duloxetine Hcl 60 Mg Cap) 60 mg PO DAILY [facility] Stop: 11/26/22 08:59 Last Admin: 10/28/22 08:17 Dose: 60 mg Famotidine (Famotidine 20 Mg Tab) 20 mg PO DAILY [facility] Stop: 11/26/22 08:59 Last Admin: 10/28/22 08:16 Dose: 20 mg Finasteride (Finasteride 5 Mg Tab) 5 mg PO QAM [facility] Stop: 11/26/22 08:59 Last Admin: 10/28/22 08:16 Dose: 5 mg Fluticasone Propionate (Fluticasone Propionate Na Spr 16 Gm Btl) 2 sprays HANSA DAILY [facility] Stop: 11/26/22 08:59 Last Admin: 10/28/22 08:20 Dose: 2 sprays Furosemide (Furosemide 40 Mg Tab) 40 mg PO BID17 [facility]MP[facility]ATRIZ Stop: 11/25/22 20:59 Last Admin: 10/28/22 08:17 Dose: 40 mg Gabapentin (Gabapentin 800 Mg Tab) 800 mg PO TID [facility] Stop: 11/25/22 20:59 Last Admin: 10/28/22 08:16 Dose: 800 mg Glucagon (Glucagon For Inj 1 Mg Vial) 1 mg SQ UD PRN; Protocol PRN Reason: Hypoglycemia Protocol Stop: 11/25/22 19:20 Glucose (Glucose 40% Gel 15 Gm Tube) 15 - 30 gm PO UD PRN; Protocol PRN Reason: Hypoglycemia Protocol Stop: 11/25/22 19:20 Glucose (Glucose 10 Tab/Tube) 4 - 8 tab PO UD PRN; Protocol PRN Reason: Hypoglycemia Treatment Stop: 11/25/22 19:20 Guaifenesin (Guaifenesin 600 Mg Tabcr) 1,200 mg PO BID [facility] Stop: 11/25/22 20:59 Last Admin: 10/28/22 08:15 Dose: 1,200 mg Hydroxyzine HCl (Hydroxyzine Hcl 25 Mg Tab) 25 mg PO QID PRN PRN Reason: Anxiety Stop: 11/25/22 19:20 Promethazine HCl 12.5 mg/ (Sodium Chloride) 50.5 mls @ 202 mls/hr IV Q6H PRN PRN Reason: Nausea And Vomiting Stop: 11/26/22 10:30 Last Infusion: 10/28/22 00:02 Dose: Infused Insulin Aspart (Insulin Aspart Per Unit) 0 units SC ACHS [facility] Stop: 11/25/22 20:59 Last Admin: 10/28/22 08:12 Dose: 26 units Insulin Glargine (Lantus Per Unit Charge) 30 units SQ BID [facility] Stop: 11/27/22 08:59 Last Admin: 10/28/22 08:13 Dose: 30 units Isosorbide Dinitrate (Isosorbide Dinitrate 10 Mg Tab) 30 mg PO DAILY [facility] Stop: 11/26/22 08:59 Last Admin: 10/28/22 08:16 Dose: 30 mg Lactobacillus Acidophilus (Advanced Probiotic 1250 Mg Capsule) 1 cap PO TID [facility] Stop: 11/25/22 20:59 Last Admin: 10/28/22 08:15 Dose: 1 cap Magnesium Oxide (Magnesium Oxide 400 Mg Tab) 400 mg PO DAILY [facility] Stop: 11/26/22 08:59 Last Admin: 10/28/22 08:16 Dose: 400 mg Metolazone (Metolazone 2.5 Mg Tablet) 2.5 mg PO MoWeFr@0900 [facility] Stop: 11/27/22 08:59 Last Admin: 10/28/22 08:18 Dose: 2.5 mg Metoprolol Succinate (Metoprolol Succ 25mg Ext Rel Tab) 75 mg PO BID [facility] Stop: 11/25/22 20:59 Last Admin: 10/28/22 08:14 Dose: 75 mg Miscellaneous (Carbohydrates For Hypoglycemia ) 15 - 30 gm PO UD PRN PRN Reason: Hypoglycemia Protocol Stop: 11/25/22 19:20 Miscellaneous (Remove Nicoderm Patch) 1 each N/A DAILY@2058 [facility] Stop: 11/26/22 08:58 Last Admin: 10/27/22 21:55 Dose: 1 each Miscellaneous Information (Pharmacy Glycemic Mgmt Consult) 1 each N/A UD PRN PRN Reason: Consult Stop: 11/25/22 19:20 Nicotine (Nicotine 21 Mg/24 Hr Tdsy) 21 mg TD HS [facility] Stop: 11/25/22 20:59 Last Admin: 10/27/22 22:03 Dose: 21 mg Ondansetron HCl (Ondansetron 4 Mg Od Tab) 4 mg PO Q8H PRN PRN Reason: NAUSEA/VOMITING Stop: 11/25/22 19:44 Pantoprazole Sodium (Pantoprazole 40 Mg Tab) 40 mg PO DAILYBB [facility]; Protocol Stop: 11/26/22 06:29 Last Admin: 10/28/22 05:47 Dose: 40 mg Polyethylene Glycol (Polyethylene (Miralax) 17 Gm Pack) 17 gm PO BID [facility] Stop: 11/25/22 20:59 Last Admin: 10/28/22 08:24 Dose: 17 gm Potassium Chloride (Potassium Chloride Crtab 20 Meq Tabcr) 20 meq PO BID [facility] Stop: 11/25/22 20:59 Last Admin: 10/28/22 08:24 Dose: 20 meq Prednisone (Prednisone 20 Mg Tab) 20 mg PO DAILY [facility] Stop: 11/26/22 14:59 Last Admin: 10/28/22 08:18 Dose: 20 mg Sennosides (Senna 8.6 Mg Tab) 8.6 mg PO DAILY PRN PRN Reason: Constipation Stop: 11/25/22 19:20 Spironolactone (Spironolactone 25 Mg Tab) 25 mg PO QAM [facility] Stop: 11/26/22 08:59 Last Admin: 10/28/22 08:17 Dose: 25 mg Tamsulosin HCl (Tamsulosin Hcl 0.4 Mg Cap) 0.8 mg PO QAM [facility] Stop: 11/26/22 08:59 Last Admin: 10/28/22 08:17 Dose: 0.8 mg Umeclidinium [place] (Umeclidinium [place] 62.5mcg/Blister 7 Puffs/Inhaler) 1 puffs INH DAILY [facility]; Protocol Stop: 11/26/22 08:59 Last Admin: 10/28/22 08:18 Dose: 1 puffs Warfarin Sodium (Warfarin Sod 5 Mg Tab) 5 mg PO Mo@1600 [facility] Stop: 11/25/22 19:20 Last Admin: 10/26/22 20:41 Dose: 5 mg Warfarin Sodium (Warfarin Sod 2.5 Mg Tab) 2.5 mg PO SuTuWeThFrSa@1600 [facility] Stop: 11/26/22 15:59 Last Admin: 10/27/22 16:21 Dose: 2.5 mg
--- NOTE | 2022-10-28 11:01 | Electrocardiogram Report ---
Test Reason : Blood Pressure : / mmHG Vent. Rate : 078 BPM Atrial Rate : 078 BPM P-R Int : 154 ms QRS Dur : 106 ms QT Int : 394 ms P-R-T Axes : 037 050 070 degrees QTc Int : 449 ms Poor data quality, interpretation may be adversely affected Normal sinus rhythm Incomplete right bundle branch block Abnormal ECG When compared with ECG of 27-OCT-2022 09:37, Nonspecific ST abnormality no longer present Confirmed by Da Browning ([id number]) on 10/28/2022 11:01:08 AM Referred By: Roberto Askew Confirmed By:Da Browning
[2022-10-28] MEDS ORDERED: ACETAMINOPHEN 1,000 MG/100 ML VIAL IV STA (11:54)
[2022-10-28] MEDS: guaiFENesin/CODEINE 100MG/10MG 5ML UDC PO PRN ×2 (12:49→20:01)
--- NOTE | 2022-10-28 14:18 | Pharmacy Report ---
Pharmacy Glycemic Short Note 2 - Date of Service October 28, 2022 - Glycemic Short BSG Results (Last 24 hours): 10/27/22 10/27/22 10/28/22 16:17 20:32 06:01 Glucose 185 H POC Glucose 127 H 155 H 10/28/22 10/28/22 07:33 11:38 Glucose POC Glucose 150 H 87 OUTPATIENT ANTIDIABETIC REGIMEN: * Glipizide 10mg BID * Novolog TID * Lantus 50 units HS ASSESSMENT: 10/28: * Fasting BSG today 150 mg/dL. Will increase total daily basal dose by ~20%. Dose will be divided evenly across AM and HS administration times. * Lunchtime BSG below goal today at 87 mg/dL. Patient routinely has carbohydrate-heavy meals; carb ratio loosened slightly as this accounts for majority component of calculated bolus doses. * Prednisone 20mg PO daily continued. Initial Assessment, 10/27: * Mr Milner is a 52 year old male with type 2 diabetes who presented to [facility] 10/26/22 due to syncope. * Most recent A1c: 7.8 on 10/12/22. * Following a POC BSG of 218mg/dL at ~2000, the patient was started Novolog with parameters of 10-4, and given 34 units of Lantus at bedtime. * Fasting BSG today measured at 114 mg/dl. Lunchtime BSG recorded as 105 mg/dL. * Novolog parameters were initially loosened from yesterday's regimen, however the patient was started on prednisone 20mg PO daily around 1500 today. * Novolog will be tightened to 15-4 to reduce steroid-exacerbated blood glucose elevations at mealtimes. * Will give 50 units of Lantus now with first dose of prednisone; will reevaluate basal needs in AM. PLAN FOR INPATIENT GLYCEMIC CONTROL: * Hold outpatient oral diabetes medications * Basal insulin * Lantus 30 units SQ BID. * Bolus insulin * NovoLog per scale ACHS or Q6hrs while NPO * Goal Range: Low 110 mg/dL - High 140 mg/dL * Correction Factor: 15 mg/dL/unit * Nutritional / Prandial insulin per carb ratio of 1 unit per 5 grams CHO consumed
--- NOTE | 2022-10-28 14:57 | Hospitalist Progress Note ---
Date of Service October 28, 2022 Assessment & Plan (1) Syncope and collapse: Plan: Recurrent falls reported at home just after discharge and through the weekend. Uncertain cause and not sure if he is losing consciousness but seemed concerned about this stating he was falling without catching himself at times. CT head is negative. Mag is low at 1.6 which is a chronic issue and he is on magnesium supplementation at home. He also takes potassium supplementation with diuretics. Recent prolonged hospital stay for diuretic therapy for heart failure exacerbation. Multiple comorbidities that are uncontrolled at baseline including insulin dependent diabetes, hypertension. He is morbidly obese. EEG in am. Consult neurology and cardiology for their thoughts in this complex, morbidly obese, noncompliant patient. Overall, it appears that he is unable to take care of himself based on my review of the records. also reports there is a new baby coming along into the home in one month's time, a child of one of her children. The patient reports not wanting to go to a snf to live and his said she can't do that to him. She does endorse him going to a short stay in rehab if he qualifies, however. PT/OT ordered for evaluation to see if he meets the criteria for this assistance. 10/27/2022 Admitted with recurrent falls with possible loss of consciousness in 1 of those as per the patient No more episodes since admission Appreciate cardiology input and recommendation for Zio patch as an outpatient Has had EEG-unremarkable Awaiting neurology evaluation We will get PT and OT evaluation prior to discharge Appreciate neurology input and recommendation PT OT recommended home Denies any more syncope and/or significant dizziness with ambulation Will be discharged home tomorrow Urine is growing coagulase-negative staph Does not have any urinary symptoms and no fever and chills. White count is elevated likely secondary to's use of steroid It grew in July of last year and ID consultation was taken ID thought that was due to contaminant His catheter has not been changed for about a month We will change the catheter and repeat UA-positive we will treat (2) CHF (congestive heart failure): Plan: chronic, appears compensated. Cont home diuretics. 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 Cont home magox supplementation. (4) Abnormal finding on urinalysis: Plan: chronic indwelling fontaine. Patient has been counseled that this is a nidus of infection yet refuses to have it removed of different occasions. He is not septic and denies any fevers or chills at this time. No UTI symptoms or abdominal pain reported. Will await culture results. Has chronic Fontaine Will await culture and sensitivity (5) Leukocytosis: Plan: Thought secondary to recent steroid use. Still wheezing but this is consistent with his active smoking history. Will stop steroids at this time and monitor CBC in am. Peripheral smear request sent to pathology. Likely secondary to use of prednisone Minimal wheezing Was on tapering dose and will continue the taper (6) Chronic indwelling Fontaine catheter: Plan: as above. (7) COPD (chronic obstructive pulmonary disease): Plan: chronic, stable. Wheezing today in setting of active smoking. Smoking cessation advised, however, this patient has a history of being argumentative with providers and noncompliance with recommendations historically. Doubt any exacerbation but will continue the tapering dose of steroid as he was getting (8) Tobacco use: Plan: Smoking cessation advised, nicoderm patch ordered. (9) Morbid obesity: Plan: Contributing to all his chronic health problems. Lifestyle modifications recommended to reduce overall percent body fat and improve lean muscle. (10) Opioid dependence: Plan: continues on buprenorphine therapy per home regimen. No other narcotics or IV substances will be given unless he is actively vomiting or not eating. H/O abuse. Significant stool burden on CT scan today. Hold iron which can contribute. Increase scheduled Miralax. Encourage ambulation as tolerated with assistance. Will not be given any narcotics pain medication Wanted to have IV Tylenol prior to physical therapy as oral Tylenol does not work at all We will comply (11) Depression with anxiety: Plan: chronic, continue home duloxetine. Cont treating underlying pain with buprenorphine, gabapentin, Flexeril PRN all per home regimen. (12) Chronic anticoagulation: Plan: INR at goal, cont coumadin per home regimen. (13) Noncompliance: Plan: DVT proph-warfarin with therapeutic INR Full Code Dispo-to [facility] tele overnight. Workup at this time is unremarkable for cause of syncope. EEG and specialty consultations as above. PT/OT. Would anticipate he can return home tomorrow. Mala DO Gilda Grace Hospitalist Admission and Anticipated Discharge Date Admission Date: October 26, 2022 Subjective 10/27/2022 Patient was seen and examined in medical telemetry unit He was admitted with recurrent falls and questionable loss of consciousness for a second or 2 in all of those as per the patient Has had shaking episodes as per the patient and he could manage to get up from the fall with some difficulty No significant injury Has been complaining of back pain following physical therapy 10/28/2022 The patient was seen and examined in medical telemetry unit He has been sitting at the edge of the bed and still complains to have wheezing and occasional dizziness with ambulation Wants to go to rehab but he did very well with physical therapy and recommended home He has been saturating normally even with ambulation To the steps O2 saturation test was discontinued He is planning to be discharged tomorrow Review of Systems Review of Systems: All systems reviewed and are unremarkable except as noted below Musculoskeletal: Some back pain Physical Exam Physical Exam: Laying in bed comfortably Constitutional: well developed, well nourished and + morbidly obese; not ill appearing Eyes: PERRL, conjunctivae normal, anicteric sclerae ENMT: external ear and nose normal, oropharynx normal Neck: trachea midline, no thyromegaly Respiratory: no respiratory distress Auscultation: + diminished lung sounds and + crackles (Minimal crackles at the bases) Cardiovascular: Rate/Rhythm: regular rate and regular rhythm; not tachycardic Heart Sounds: normal S1 and normal S2; no murmur Extremities: + edema (Trace edema bilaterally with chronic skin changes) Gastrointestinal (Abdomen): Inspection/Auscultation: normal bowel sounds; abdomen not distended Percussion/Palpation: abdomen soft; abdomen nontender Musculoskeletal: No acute arthritis in the joint but has been complaining of more pain following therapy today Neurologic: Alert, 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. No focal motor deficit appreciated Lymphatic: no cervical or axillary lymphadenopathy Results & Data Results & Data ([facility]) Vital Signs (Past 12 Hours) Vital Signs Temp Pulse Pulse Resp BP Pulse Ox O2 Del Method 10/28/22 10:40 Room Air 10/28/22 07:30 59 L 10/28/22 07:00 36.4 C L 67 16 151/85 H 94 Room Air 10/28/22 02:59 36.7 C 65 20 160/93 H 99 Nasal Cannula O2 Flow Rate 10/28/22 10:40 10/28/22 07:30 10/28/22 07:00 10/28/22 02:59 4 Laboratory Results Short CBC 10/28/22 Range/Units 06:01 WBC 20.02 H (4.8-10.8) K/ul Hgb 13.5 L (14.0-18.0) g/dl Hct 40.9 L (42.0-52.0) % Plt Count 251 (130-400) K/uL BMP 10/28/22 06:01 Sodium 137 Potassium 3.4 L Chloride 95 L Carbon Dioxide 39 H BUN 33 H Creatinine 0.98 Glucose 185 H Calcium 9.7 Medications Administered Current Inpatient Medications Albuterol (Albuterol Hfa 8 Gm Inhaler) 2 puffs INH Q4 PRN; Protocol PRN Reason: Dyspnea Stop: 11/25/22 19:20 Aspirin (Aspirin 81 Mg Ectab) 81 mg PO QAM [facility] Stop: 11/26/22 08:59 Last Admin: 10/28/22 08:17 Dose: 81 mg Atorvastatin Calcium (Atorvastatin 40 Mg Tab) 80 mg PO QPM [facility] Stop: 11/25/22 20:59 Last Admin: 10/27/22 22:02 Dose: 80 mg Benzonatate (Benzonatate 100 Mg Capsule) 100 mg PO TID PRN PRN Reason: Cough Stop: 11/25/22 20:56 Last Admin: 10/28/22 08:13 Dose: 100 mg Buprenorphine HCl (Buprenorphine Hcl 8 Mg Subl) 8 mg SL TID [facility] Stop: 11/25/22 20:59 Last Admin: 10/28/22 12:49 Dose: 8 mg Cyclobenzaprine HCl (Cyclobenzaprine Hcl 10 Mg Tab) 10 mg PO BID PRN PRN Reason: Muscle Spasm Stop: 11/25/22 19:20 Last Admin: 10/28/22 08:13 Dose: 10 mg Dextrose (Dextrose 50% 50 Ml Syringe) 25 - 50 ml IV UD PRN; Protocol PRN Reason: Hypoglycemia Protocol Stop: 11/25/22 19:20 Diclofenac Sodium (Diclofenac Sod 1% Gel 100 Gm Tube) 2 gm EXT BID [facility]; Protocol Stop: 11/25/22 20:59 Last Admin: 10/28/22 08:19 Dose: 2 gm Docusate Sodium (Docusate Sodium 100 Mg Cap) 100 mg PO BID [facility] Stop: 11/25/22 20:59 Last Admin: 10/28/22 08:15 Dose: 100 mg Duloxetine HCl (Duloxetine Hcl 60 Mg Cap) 60 mg PO DAILY [facility] Stop: 11/26/22 08:59 Last Admin: 10/28/22 08:17 Dose: 60 mg Famotidine (Famotidine 20 Mg Tab) 20 mg PO DAILY [facility] Stop: 11/26/22 08:59 Last Admin: 10/28/22 08:16 Dose: 20 mg Finasteride (Finasteride 5 Mg Tab) 5 mg PO QAM [facility] Stop: 11/26/22 08:59 Last Admin: 10/28/22 08:16 Dose: 5 mg Fluticasone Propionate (Fluticasone Propionate Na Spr 16 Gm Btl) 2 sprays HANSA DAILY [facility] Stop: 11/26/22 08:59 Last Admin: 10/28/22 08:20 Dose: 2 sprays Furosemide (Furosemide 40 Mg Tab) 40 mg PO BID17 [facility] Stop: 11/25/22 20:59 Last Admin: 10/28/22 08:17 Dose: 40 mg Gabapentin (Gabapentin 800 Mg Tab) 800 mg PO TID [facility] Stop: 11/25/22 20:59 Last Admin: 10/28/22 12:50 Dose: 800 mg Glucagon (Glucagon For Inj 1 Mg Vial) 1 mg SQ UD PRN; Protocol PRN Reason: Hypoglycemia Protocol Stop: 11/25/22 19:20 Glucose (Glucose 40% Gel 15 Gm Tube) 15 - 30 gm PO UD PRN; Protocol PRN Reason: Hypoglycemia Protocol Stop: 11/25/22 19:20 Glucose (Glucose 10 Tab/Tube) 4 - 8 tab PO UD PRN; Protocol PRN Reason: Hypoglycemia Treatment Stop: 11/25/22 19:20 Guaifenesin (Guaifenesin 600 Mg Tabcr) 1,200 mg PO BID [facility] Stop: 11/25/22 20:59 Last Admin: 10/28/22 08:15 Dose: 1,200 mg Guaifenesin/Codeine Phosphate (Guaifenesin/Codeine 100mg/10mg 5ml Udc) 5 ml PO Q6H PRN PRN Reason: Cough Stop: 11/27/22 11:52 Last Admin: 10/28/22 12:49 Dose: 5 ml Hydroxyzine HCl (Hydroxyzine Hcl 25 Mg Tab) 25 mg PO QID PRN PRN Reason: Anxiety Stop: 11/25/22 19:20 Promethazine HCl 12.5 mg/ (Sodium Chloride) 50.5 mls @ 202 mls/hr IV Q6H PRN PRN Reason: Nausea And Vomiting Stop: 11/26/22 10:30 Last Infusion: 10/28/22 00:02 Dose: Infused Insulin Aspart (Insulin Aspart Per Unit) 0 units SC ACHS [facility] Stop: 11/25/22 20:59 Last Admin: 10/28/22 11:47 Dose: 10 units Insulin Glargine (Lantus Per Unit Charge) 30 units SQ BID [facility] Stop: 11/27/22 08:59 Last Admin: 10/28/22 08:13 Dose: 30 units Isosorbide Dinitrate (Isosorbide Dinitrate 10 Mg Tab) 30 mg PO DAILY [facility] Stop: 11/26/22 08:59 Last Admin: 10/28/22 08:16 Dose: 30 mg Lactobacillus Acidophilus (Advanced Probiotic 1250 Mg Capsule) 1 cap PO TID [facility] Stop: 11/25/22 20:59 Last Admin: 10/28/22 12:50 Dose: 1 cap Magnesium Oxide (Magnesium Oxide 400 Mg Tab) 400 mg PO DAILY [facility] Stop: 11/26/22 08:59 Last Admin: 10/28/22 08:16 Dose: 400 mg Metolazone (Metolazone 2.5 Mg Tablet) 2.5 mg PO MoWeFr@0900 [facility] Stop: 11/27/22 08:59 Last Admin: 10/28/22 08:18 Dose: 2.5 mg Metoprolol Succinate (Metoprolol Succ 25mg Ext Rel Tab) 75 mg PO BID [facility] Stop: 11/25/22 20:59 Last Admin: 10/28/22 08:14 Dose: 75 mg Miscellaneous (Carbohydrates For Hypoglycemia ) 15 - 30 gm PO UD PRN PRN Reason: Hypoglycemia Protocol Stop: 11/25/22 19:20 Miscellaneous (Remove Nicoderm Patch) 1 each N/A DAILY@2058 [facility] Stop: 11/26/22 08:58 Last Admin: 10/27/22 21:55 Dose: 1 each Miscellaneous Information (Pharmacy Glycemic Mgmt Consult) 1 each N/A UD PRN PRN Reason: Consult Stop: 11/25/22 19:20 Nicotine (Nicotine 21 Mg/24 Hr Tdsy) 21 mg TD HS [facility] Stop: 11/25/22 20:59 Last Admin: 10/27/22 22:03 Dose: 21 mg Ondansetron HCl (Ondansetron 4 Mg Od Tab) 4 mg PO Q8H PRN PRN Reason: NAUSEA/VOMITING Stop: 11/25/22 19:44 Pantoprazole Sodium (Pantoprazole 40 Mg Tab) 40 mg PO DAILYBB [facility]; Protocol Stop: 11/26/22 06:29 Last Admin: 10/28/22 05:47 Dose: 40 mg Polyethylene Glycol (Polyethylene (Miralax) 17 Gm Pack) 17 gm PO BID [facility] Stop: 11/25/22 20:59 Last Admin: 10/28/22 08:24 Dose: 17 gm Potassium Chloride (Potassium Chloride Crtab 20 Meq Tabcr) 20 meq PO BID [facility] Stop: 11/25/22 20:59 Last Admin: 10/28/22 08:24 Dose: 20 meq Prednisone (Prednisone 20 Mg Tab) 20 mg PO DAILY [facility] Stop: 11/26/22 14:59 Last Admin: 10/28/22 08:18 Dose: 20 mg Sennosides (Senna 8.6 Mg Tab) 8.6 mg PO DAILY PRN PRN Reason: Constipation Stop: 11/25/22 19:20 Spironolactone (Spiron[facility]actone 25 Mg Tab) [facility] [place]: 11/26/22 08:59 Last Admin: 10/28/22 08:17 Dose: 25 mg Tamsulosin HCl (Tamsulosin Hcl 0.4 Mg Cap) 0.8 mg [facility] [place] Stop: 11/26/22 08:59 Last Admin: 10/28/22 08:17 Dose: 0.8 mg Umeclidinium [place] (Umeclidinium [place] 62.5mcg/Blister 7 Puffs/Inhaler) 1 puffs INH DAILY [facility]; Protocol Stop: 11/26/22 08:59 Last Admin: 10/28/22 08:18 Dose: 1 puffs Warfarin Sodium (Warfarin Sod 5 Mg Tab) 5 mg PO Mo@1600 [facility] Stop: 11/25/22 19:20 Last Admin: 10/26/22 20:41 Dose: 5 mg Warfarin Sodium (Warfarin Sod 2.5 Mg Tab) 2.5 mg PO SindhuElis@1600 [facility] Stop: 11/26/22 15:59 Last Admin: 10/27/22 16:21 Dose: 2.5 mg (1) COPD (chronic obstructive pulmonary disease) COPD type: unspecified COPD Qualified Code(s): J44.9 - Chronic obstructive pulmonary disease, unspecified
[2022-10-28] MEDS ORDERED: HYDROmorphone INJ 0.5 MG/0.5 ML SYR IV STA (15:33)
[2022-10-28] MEDS: WARFARIN SOD 2.5 MG TAB PO SCH (16:15)
[2022-10-28 17:13] LABS: Appearance Urine Cloudy (Clear); Bacteria Urine Automated Negative (Negative); Bilirubin Urine Negative (Negative); Blood Urine 3+ (Negative); Color Urine Yellow; Epithelial Cell Urine Auto >30 /lpf (0-5); Glucose Urine UA Negative (Negative); Ketones Urine Negative (Negative); Leukocyte Esterase Urine 3+ (Negative); Nitrite Urine Negative (Negative); RBC Urine Automated >30 /hpf (0-4); Specific Gravity Urine 1.017 (1.000-1.030); Urobilinogen Urine Negative (Negative); WBC Urine Automated >30 /hpf (0-5); pH Urine 7.5 (4.5-7.5)
[2022-10-28 17:16] LABS: Protein Urine Trace (Negative)
[2022-10-28] MEDS ORDERED: LORazepam 0.5 MG TAB PO PRN (21:29)
[2022-10-28] MEDS: ATORVASTATIN 40 MG TAB PO SCH (21:31)
[2022-10-28] MEDS: NICOTINE 21 MG/24 HR TDSY TD SCH (21:31)
[2022-10-28] MEDS: ACETAMINOPHEN 1,000 MG/100 ML VIAL IV PRN (21:46)
[2022-10-29] MEDS: guaiFENesin/CODEINE 100MG/10MG 5ML UDC PO PRN ×2 (02:04→07:59)
[2022-10-29] MEDS: PANTOprazole 40 MG TAB PO SCH (05:25)
[2022-10-29] MEDS: UMECLIDINIUM BROMIDE 62.5MCG/BLISTER 7 PUFFS/INHALER INH SCH (07:58)
[2022-10-29] MEDS: POLYETHYLENE (MIRALAX) 17 GM PACK PO SCH (07:59)
[2022-10-29] MEDS: FLUTICASONE PROPIONATE NA SPR 16 GM BTL NAE SCH (07:59)
[2022-10-29] MEDS: CYCLOBENZAPRINE HCL 10 MG TAB PO PRN (07:59)
[2022-10-29] MEDS: LANTUS PER UNIT CHARGE SQ SCH (07:59)
[2022-10-29] MEDS: BENZONATATE 100 MG CAPSULE PO PRN (07:59)
[2022-10-29] MEDS: POTASSIUM CHLORIDE CRTAB 20 MEQ TABCR PO SCH (07:59)
[2022-10-29] MEDS: INSULIN ASPART PER UNIT SC SCH ×2 (07:59→11:55)
[2022-10-29] MEDS: buprenorphine HCL 8 MG SUBL SL SCH (08:04)
[2022-10-29] MEDS: METOPROLOL SUCC 25MG EXT REL TAB PO SCH (08:05)
[2022-10-29] MEDS: DICLOFENAC SOD 1% GEL 100 GM TUBE EXT SCH (08:05)
[2022-10-29] MEDS: ADVANCED PROBIOTIC 1250 MG CAPSULE PO SCH (08:05)
[2022-10-29] MEDS: guaiFENesin 600 MG TABCR PO SCH (08:06)
[2022-10-29] MEDS: FUROSEMIDE 40 MG TAB PO SCH (08:06)
[2022-10-29] MEDS: GABAPENTIN 800 MG TAB PO SCH (08:06)
[2022-10-29] MEDS: MAGNESIUM OXIDE 400 MG TAB PO SCH (08:06)
[2022-10-29] MEDS: DOCUSATE SODIUM 100 MG CAP PO SCH (08:07)
[2022-10-29] MEDS: predniSONE 20 MG TAB PO SCH (08:07)
[2022-10-29] MEDS: ASPIRIN 81 MG ECTAB PO SCH (08:07)
[2022-10-29] MEDS: TAMSULOSIN HCL 0.4 MG CAP PO SCH (08:07)
[2022-10-29] MEDS: ISOSORBIDE DINITRATE 10 MG TAB PO SCH (08:07)
[2022-10-29] MEDS: SPIRONOLACTONE 25 MG TAB PO SCH (08:08)
[2022-10-29] MEDS: DULoxetine HCL 60 MG CAP PO SCH (08:08)
[2022-10-29] MEDS: FAMOTIDINE 20 MG TAB PO SCH (08:08)
[2022-10-29] MEDS: FINASTERIDE 5 MG TAB PO SCH (08:08)
[2022-10-29 09:28] LABS: Hematocrit (blood only) 43.4 % (42.0-52.0); Hemoglobin 14.3 g/dl (14.0-18.0); Mean Corpuscular Hemoglobin 27.8 pg (25.0-34.0); Mean Corpuscular Hgb Conc 32.9 g/dL (32.0-36.0); Mean Corpuscular Volume 84.3 fL (80.0-100.0); Mean Platelet Volume 10.4 fL (9.4-12.4); Platelet Count 253 K/uL (130-400); RDW Coefficient of Variation 19.6 % (11.5-14.5); RDW Standard Deviation 57.7 fL (36.4-46.3); Red Blood Count 5.15 M/uL (4.70-6.10); White Blood Count 19.45 K/ul (4.8-10.8)
[2022-10-29 09:37] LABS: BUN Creatinine Ratio 34.1 (10-20); Calcium 9.8 mg/dl (8.5-10.1); Creatinine Clr Calc Pharmacy 166.9 ml/min; Est GFR (African American) 111.9 ml/min; Est GFR (Non-African American) 96.6 ml/min; Potassium 3.3 mmol/L (3.5-5.1)
[2022-10-29 09:50] LABS: Basophils # (auto) 0.08 K/uL (0-0.2); Basophils % (auto) 0.4 %; Eosinophils # (auto) 0.18 K/uL (0-0.50); Eosinophils % (auto) 0.9 %; INR 2.2 (0.9-1.1); Immature Granulocytes # (auto) 0.26 K/uL (0.01-0.20); Immature Granulocytes % (auto) 1.3 %; Lymphocytes # (auto) 5.85 K/uL (1.2-3.4); Lymphocytes % (auto) 30.1 %; Monocytes # (auto) 1.32 K/uL (0.11-0.59); Monocytes % (auto) 6.8 %; Neutrophils # (auto) 11.76 K/uL (1.40-6.50); Neutrophils % (auto) 60.5 %
[2022-10-29] MEDS ORDERED: POTASSIUM CHLORIDE CRTAB 20 MEQ TABCR PO STA (10:18)
[2022-10-29] MEDS ORDERED: ACETAMINOPHEN 1,000 MG/100 ML VIAL IV STA (10:58)
--- NOTE | 2022-10-29 10:58 | Hospitalist Progress Note ---
Date of Service October 29, 2022 Assessment & Plan (1) Syncope and collapse: Plan: Recurrent falls reported at home just after discharge and through the weekend. Uncertain cause and not sure if he is losing consciousness but seemed concerned about this stating he was falling without catching himself at times. CT head is negative. Mag is low at 1.6 which is a chronic issue and he is on magnesium supplementation at home. He also takes potassium supplementation with diuretics. Recent prolonged hospital stay for diuretic therapy for heart failure exacerbation. Multiple comorbidities that are uncontrolled at baseline including insulin dependent diabetes, hypertension. He is morbidly obese. EEG in am. Consult neurology and cardiology for their thoughts in this complex, morbidly obese, noncompliant patient. Overall, it appears that he is unable to take care of himself based on my review of the records. also reports there is a new baby coming along into the home in one month's time, a child of one of her children. The patient reports not wanting to go to a chcf to live and his said she can't do that to him. She does endorse him going to a short stay in rehab if he qualifies, however. PT/OT ordered for evaluation to see if he meets the criteria for this assistance. 10/27/2022 Admitted with recurrent falls with possible loss of consciousness in 1 of those as per the patient No more episodes since admission Appreciate cardiology input and recommendation for Zio patch as an outpatient Has had EEG-unremarkable Awaiting neurology evaluation We will get PT and OT evaluation prior to discharge Appreciate neurology input and recommendation PT OT recommended home Denies any more syncope and/or significant dizziness with ambulation Will be discharged home tomorrow Remains medically stable without any more dizziness and or syncope Will be discharged home this afternoon Urine is growing coagulase-negative staph Does not have any urinary symptoms and no fever and chills. White count is elevated likely secondary to's use of steroid It grew in July of last year and ID consultation was taken ID thought that was due to contaminant His catheter has not been changed for about a month We will change the catheter and repeat UA-positive we will treat Repeat urine culture is negative and the patient be discharged home today (2) CHF (congestive heart failure): Plan: chronic, appears compensated. Cont home diuretics. 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 Cont home magox supplementation. (4) Abnormal finding on urinalysis: Plan: chronic indwelling fontaine. Patient has been counseled that this is a nidus of infection yet refuses to have it removed of different occasions. He is not septic and denies any fevers or chills at this time. No UTI symptoms or abdominal pain reported. Will await culture results. Has chronic Fontaine Will await culture and sensitivity Repeat urine culture has been negative (5) Leukocytosis: Plan: Thought secondary to recent steroid use. Still wheezing but this is consistent with his active smoking history. Will stop steroids at this time and monitor CBC in am. Peripheral smear request sent to pathology. Likely secondary to use of prednisone Minimal wheezing Was on tapering dose and will continue the taper (6) Chronic indwelling Fontaine catheter: Plan: as above. (7) COPD (chronic obstructive pulmonary disease): Plan: chronic, stable. Wheezing today in setting of active smoking. Smoking cessation advised, however, this patient has a history of being argumentative with providers and noncompliance with recommendations historically. Doubt any exacerbation but will continue the tapering dose of steroid as he was getting (8) Tobacco use: Plan: Smoking cessation advised, nicoderm patch ordered. (9) Morbid obesity: Plan: Contributing to all his chronic health problems. Lifestyle modifications recommended to reduce overall percent body fat and improve lean muscle. (10) Opioid dependence: Plan: continues on buprenorphine therapy per home regimen. No other narcotics or IV substances will be given unless he is actively vomiting or not eating. H/O abuse. Significant stool burden on CT scan today. Hold iron which can contribute. Increase scheduled Miralax. Encourage ambulation as tolerated with assistance. Will not be given any narcotics pain medication Wanted to have IV Tylenol prior to physical therapy as oral Tylenol does not work at all We will comply (11) Depression with anxiety: Plan: chronic, continue home duloxetine. Cont treating underlying pain with buprenorphine, gabapentin, Flexeril PRN all per home regimen. (12) Chronic anticoagulation: Plan: INR at goal, cont coumadin per home regimen. INR is therapeutic and was strongly advised to take Coumadin regularly and follow-up with the coagulation clinic (13) Noncompliance: Plan: DVT proph-warfarin with therapeutic INR Full Code Dispo-to med tele overnight. Workup at this time is unremarkable for cause of syncope. EEG and specialty consultations as above. PT/OT. Would anticipate he can return home tomorrow. Mala Grace DO [facility] Hospitalist Admission and Anticipated Discharge Date Admission Date: October 26, 2022 Subjective 10/27/2022 Patient was seen and examined in medical telemetry unit He was admitted with recurrent falls and questionable loss of consciousness for a second or 2 in all of those as per the patient Has had shaking episodes as per the patient and he could manage to get up from the fall with some difficulty No significant injury Has been complaining of back pain following physical therapy 10/28/2022 The patient was seen and examined in medical telemetry unit He has been sitting at the edge of the bed and still complains to have wheezing and occasional dizziness with ambulation Wants to go to rehab but he did very well with physical therapy and recommended home He has been saturating normally even with ambulation To the steps O2 saturation test was discontinued He is planning to be discharged tomorrow 10/29/2022 The patient was seen and examined in medical telemetry unit He does not have any symptoms except occasional cough His repeat UA was not 6 negative for any infection Discussed with the microbiology lab and was told that the culture is going to be negative//pinpoint growth Review of Systems Review of Systems: All systems reviewed and are unremarkable except as noted below Musculoskeletal: Some back pain Physical Exam Physical Exam: Laying in bed comfortably Constitutional: well developed, well nourished and + morbidly obese; not ill appearing Eyes: PERRL, conjunctivae normal, anicteric sclerae ENMT: external ear and nose normal, oropharynx normal Neck: trachea midline, no thyromegaly Respiratory: no respiratory distress Auscultation: + diminished lung sounds and + crackles (Minimal crackles at the bases) Cardiovascular: Rate/Rhythm: regular rate and regular rhythm; not tachycardic Heart Sounds: normal S1 and normal S2; no murmur Extremities: + edema (Trace edema bilaterally with chronic skin changes) Gastrointestinal (Abdomen): Inspection/Auscultation: normal bowel sounds; abdomen not distended Percussion/Palpation: abdomen soft; abdomen nontender Musculoskeletal: Chronic pain at the back but no acute arthritis involving any joint Neurologic: normal touch/pain/proprioception, moves all extremities and + focal motor deficit Psychiatric: A+Ox3, euthymic affect Lymphatic: no cervical or axillary lymphadenopathy Results & Data Results & Data ([facility]) Vital Signs (Past 12 Hours) Vital Signs Temp Pulse Pulse Resp BP Pulse Ox O2 Del Method 10/29/22 07:55 Room Air 10/29/22 07:00 75 22 Nasal Cannula 10/29/22 07:39 37.0 C 74 20 160/79 H 97 Nasal Cannula 10/29/22 06:39 64 10/29/22 03:10 36.8 C 64 20 128/82 95 Nasal Cannula 10/29/22 01:19 Nasal Cannula 10/29/22 01:08 71 10/28/22 23:10 36.4 C L 69 20 155/79 H 97 Nasal Cannula O2 Flow Rate 10/29/22 07:55 4 10/29/22 07:00 4 10/29/22 07:39 4 10/29/22 06:39 10/29/22 03:10 4 10/29/22 01:19 4 10/29/22 01:08 10/28/22 23:10 4 Laboratory Results Short CBC 10/29/22 Range/Units 08:47 WBC 19.45 H (4.8-10.8) K/ul Hgb 14.3 (14.0-18.0) g/dl Hct 43.4 (42.0-52.0) % Plt Count 253 (130-400) K/uL BMP 10/29/22 08:47 Sodium 136 Potassium 3.3 L Chloride 93 L Carbon Dioxide 36 H BUN 31 H Creatinine 0.91 Glucose 178 H Calcium 9.8 Urine 10/28/22 Range/Units Unknown Urine Color Yellow Urine Appearance Cloudy A (Clear) Urine pH 7.5 (4.5-7.5) Ur Specific [place] 1.017 (1.000-1.030) Urine Protein Trace H (Negative) Urine Glucose (UA) Negative (Negative) (1) COPD (chronic obstructive pulmonary disease) COPD type: unspecified COPD Qualified Code(s): J44.9 - Chronic obstructive pulmonary disease, unspecified
[2022-10-29] MEDS: ACETAMINOPHEN 1,000 MG/100 ML VIAL IV PRN (11:03)
--- NOTE | 2022-10-29 11:16 | Cardiology Progress Note ---
Date of Service October 29, 2022 Assessment & Plan (1) Syncope and collapse: (2) Leukocytosis: (3) Hypomagnesemia: (4) Hypokalemia: (5) (HFpEF) heart failure with preserved ejection fraction: Plan Patient reporting episodes of possible syncope vs falls/weakness at home. It is unclear whether or not patient loses consciousness. Possible "shaking" during spells and family concerned with seizure like activity. Neuro consulted. No recurrent symptoms since admission with ambulation and PT/OT. . No arrhythmias noted throughout admission on telemetry. EKG is without acute changes. BP is controlled. Patient appears euvolemic. He should continue all outpatient medications. 2 week ZIO monitor will be mailed to his house. Patient agreeable. Cardio will mail the monitor. Encounter created. No further cardiac testing warranted at this time. Stable for discharge Case discussed with Dr. Penn. Admission and Anticipated Discharge Date Admission Date: October 26, 2022 Supervising Physician Co-Signing Physician Notes Patient seen examined the bedside. No recurrent lightheadedness or dizziness since admission. Telemetry reveals sinus rhythm. No dysrhythmias. PE: VSS. Gen: NAD, obese, AAOx3. Heart: Regular rhythm, normal S1-S2. No murmur. Lungs: Expiratory wheezing bilateral. No rales. Extremities: Bi lateral stasis changes without significant edema. A/P: Agree with above PA-C history, physical exam, assessment and plan. Etiology of the patient symptoms unclear. No dysrhythmias on telemetry. Po ssibly related to volume depletion in the setting of recent hospitalization and significant diuresis. Blood pressure controlled. No documented hypotension. Outpatient 14-day ZIO monitor. Cardiology will sign off. Please call with questions. Subjective Patient resting in bed. Eager for discharge. Per hospitalist, awaiting urine culture. Denies chest pain or worsening SOB. ongoing cough and sore throat reported, but better. No recurrent dizziness, syncope or near syncope. Ambulating with physical therapy and nursing staff each day without symptoms. no arrhythmias on telemetry. Review of Systems Review of Systems: All systems reviewed & are unremarkable except as noted in HPI & below Physical Exam Constitutional: WD/WN, vitals as above + morbidly obese Neck: + thick neck Respiratory: normal respiratory effort and + cough Auscultation: + diminished lung sounds; no crackles and no rales Cardiovascular: Rate/Rhythm: regular rate and regular rhythm Heart Sounds: no murmur (distant heart sounds) Vessels: no JVD Extremities: + edema (trace b/l edema with chronic venous stasis) Gastrointestinal (Abdomen): normal bowel sounds, soft, nontender, no hepatosplenomegaly Neurologic: PERRL, EOMI, accommodation nl, no face palsy, no dysarthria Results & Data ([facility]) Vital Signs (Past 12 Hours) Vital Signs Temp Pulse Pulse Resp BP Pulse Ox O2 Del Method 10/29/22 07:55 Room Air 10/29/22 07:00 75 22 Nasal Cannula 10/29/22 07:39 37.0 C 74 20 160/79 H 97 Nasal Cannula 10/29/22 06:39 64 10/29/22 03:10 36.8 C 64 20 128/82 95 Nasal Cannula 10/29/22 01:19 Nasal Cannula 10/29/22 01:08 71 O2 Flow Rate 10/29/22 07:55 4 10/29/22 07:00 4 10/29/22 07:39 4 10/29/22 06:39 10/29/22 03:10 4 10/29/22 01:19 4 10/29/22 01:08 Laboratory Results Coagulation 10/29/22 Range/Units 08:47 PT 22.0 H (9.0-12.0) Seconds CBC 10/29/22 Range/Units 08:47 WBC 19.45 H (4.8-10.8) K/ul RBC 5.15 (4.70-6.10) M/uL Hgb 14.3 (14.0-18.0) g/dl Hct 43.4 (42.0-52.0) % Plt Count 253 (130-400) K/uL Neut # (Auto) 11.76 H (1.40-6.50) K/uL Lymph # (Auto) 5.85 H (1.2-3.4) K/uL [place] # (Auto) 1.32 H (0.11-0.59) K/uL Eos # (Auto) 0.18 (0-0.50) K/uL Baso # (Auto) 0.08 (0-0.2) K/uL Comprehensive Metabolic Panel 10/29/22 Range/Units 08:47 Sodium 136 (136-145) mmol/L Potassium 3.3 L (3.5-5.1) mmol/L Chloride 93 L (98-107) mmol/L Carbon Dioxide 36 H (21-32) mmol/L BUN 31 H (6-23) mg/dl Creatinine 0.91 (0.6-1.4) mg/dl Glucose 178 H (70-99(Fasting)) mg/dl Calcium 9.8 (8.5-10.1) mg/dl Intake and Output 10/28/22 10/29/22 10/29/22 22:59 06:59 14:59 Intake Total 940 / 1480 80 / 1480 Output Total 3150 / 6000 1250 / 6000 Balance -2210 / -4520 -1170 / -4520 Intake: IV 100 / 200 Acetaminophen 1,000 mg In 100 100 / 100 ml @ 400 mls/hr IV Q8H PRN Rx#: [id number] Oral 840 / 1280 80 / 1280 Output: Urine Amount (Catheter) 3150 / 6000 1250 / 6000 Lloyd/Indwelling 3150 / 6000 1250 / 6000 Other: Weight 194.3 kg Weight Measurement Method Standing Scale Diagnostic Findings Telemetry reviewed: NSR without arrhythmias. Medications Administered Current Inpatient Medications Albuterol (Albuterol Hfa 8 Gm Inhaler) 2 puffs INH Q4 PRN; Protocol PRN Reason: Dyspnea Stop: 11/25/22 19:20 Aspirin (Aspirin 81 Mg Ectab) 81 mg PO QAM [facility] Stop: 11/26/22 08:59 Last Admin: 10/29/22 08:07 Dose: 81 mg Atorvastatin Calcium (Atorvastatin 40 Mg Tab) 80 mg PO QPM [facility] Stop: 11/25/22 20:59 Last Admin: 10/28/22 21:31 Dose: 80 mg Benzonatate (Benzonatate 100 Mg Capsule) 100 mg PO TID PRN PRN Reason: Cough Stop: 11/25/22 20:56 Last Admin: 10/29/22 07:59 Dose: 100 mg Buprenorphine HCl (Buprenorphine Hcl 8 Mg Subl) 8 mg SL TID [facility] Stop: 11/25/22 20:59 Last Admin: 10/29/22 08:04 Dose: 8 mg Cyclobenzaprine HCl (Cyclobenzaprine Hcl 10 Mg Tab) 10 mg PO BID PRN PRN Reason: Muscle Spasm Stop: 03/08/23 19:20 Last Admin: 10/29/22 07:59 Dose: 10 mg Dextrose (Dextrose 50% 50 Ml Syringe) 25 - 50 ml IV UD PRN; Protocol PRN Reason: Hypoglycemia Protocol Stop: 11/25/22 19:20 Diclofenac Sodium (Diclofenac Sod 1% Gel 100 Gm Tube) 2 gm EXT BID [facility]; Protocol Stop: 11/25/22 20:59 Last Admin: 10/29/22 08:05 Dose: 2 gm Docusate Sodium (Docusate Sodium 100 Mg Cap) 100 mg PO BID [facility] Stop: 11/25/22 20:59 Last Admin: 10/29/22 08:07 Dose: 100 mg Duloxetine HCl (Duloxetine Hcl 60 Mg Cap) 60 mg PO DAILY [facility] Stop: 11/26/22 08:59 Last Admin: 10/29/22 08:08 Dose: 60 mg Famotidine (Famotidine 20 Mg Tab) 20 mg PO DAILY [facility] Stop: 11/26/22 08:59 Last Admin: 10/29/22 08:08 Dose: 20 mg Finasteride (Finasteride 5 Mg Tab) 5 mg PO QAM [facility] Stop: 11/26/22 08:59 Last Admin: 10/29/22 08:08 Dose: 5 mg Fluticasone Propionate (Fluticasone Propionate Na Spr 16 Gm Btl) 2 sprays HANSA DAILY [facility] Stop: 11/26/22 08:59 Last Admin: 10/29/22 07:59 Dose: 2 sprays Furosemide (Furosemide 40 Mg Tab) 40 mg PO BID17 [facility] Stop: 11/25/22 20:59 Last Admin: 10/29/22 08:06 Dose: 40 mg Gabapentin (Gabapentin 800 Mg Tab) 800 mg PO TID [facility] Stop: 11/25/22 20:59 Last Admin: 10/29/22 08:06 Dose: 800 mg Glucagon (Glucagon For Inj 1 Mg Vial) 1 mg SQ UD PRN; Protocol PRN Reason: Hypoglycemia Protocol Stop: 11/25/22 19:20 Glucose (Glucose 40% Gel 15 Gm Tube) 15 - 30 gm PO UD PRN; Protocol PRN Reason: Hypoglycemia Protocol Stop: 11/25/22 19:20 Glucose (Glucose 10 Tab/Tube) 4 - 8 tab PO UD PRN; Protocol PRN Reason: Hypoglycemia Treatment Stop: 11/25/22 19:20 Guaifenesin (Guaifenesin 600 Mg Tabcr) 1,200 mg PO BID [facility] Stop: 11/25/22 20:59 Last Admin: 10/29/22 08:06 Dose: 1,200 mg Guaifenesin/Codeine Phosphate (Guaifenesin/Codeine 100mg/10mg 5ml Udc) 5 ml PO Q6H PRN PRN Reason: Cough Stop: 11/27/22 11:52 Last Admin: 10/29/22 07:59 Dose: 5 ml Hydroxyzine HCl (Hydroxyzine Hcl 25 Mg Tab) 25 mg PO QID PRN PRN Reason: Anxiety Stop: 11/25/22 19:20 Promethazine HCl 12.5 mg/ (Sodium Chloride) 50.5 mls @ 202 mls/hr IV Q6H PRN PRN Reason: Nausea And Vomiting Stop: 11/26/22 10:30 Last Infusion: 10/28/22 00:02 Dose: Infused Acetaminophen (Ofirmev) 1,000 mg in 100 mls @ 400 mls/hr IV Q8H PRN PRN Reason: fever/pain Stop: 10/31/22 20:05 Last Infusion: 10/28/22 22:36 Dose: Infused Insulin Aspart (Insulin Aspart Per Unit) 0 units SC ACHS [facility] Stop: 11/25/22 20:59 Last Admin: 10/29/22 07:59 Dose: 20 units Insulin Glargine (Lantus Per Unit Charge) 30 units SQ BID [facility] Stop: 11/27/22 08:59 Last Admin: 10/29/22 07:59 Dose: 30 units Isosorbide Dinitrate (Isosorbide Dinitrate 10 Mg Tab) 30 mg PO DAILY [facility] Stop: 11/26/22 08:59 Last Admin: 10/29/22 08:07 Dose: 30 mg Lactobacillus Acidophilus (Advanced Probiotic 1250 Mg Capsule) 1 cap PO TID [facility] Stop: 11/25/22 20:59 Last Admin: 10/29/22 08:05 Dose: 1 cap Lorazepam (Lorazepam 0.5 Mg Tab) 0.5 mg PO HS PRN PRN Reason: insomnia Stop: 11/27/22 21:28 Last Admin: 10/28/22 21:45 Dose: 0.5 mg Magnesium Oxide (Magnesium Oxide 400 Mg Tab) 400 mg PO DAILY [facility] Stop: 11/26/22 08:59 Last Admin: 10/29/22 08:06 Dose: 400 mg Metolazone (Metolazone 2.5 Mg Tablet) 2.5 mg PO MoWeFr@0900 [facility] Stop: 11/27/22 08:59 Last Admin: 10/28/22 08:18 Dose: 2.5 mg Metoprolol Succinate (Metoprolol Succ 25mg Ext Rel Tab) 75 mg PO BID [facility] Stop: 11/25/22 20:59 Last Admin: 10/29/22 08:05 Dose: 75 mg Miscellaneous (Carbohydrates For Hypoglycemia ) 15 - 30 gm PO UD PRN PRN Reason: Hypoglycemia Protocol Stop: 11/25/22 19:20 Miscellaneous (Remove Nicoderm Patch) 1 each N/A DAILY@2058 [facility] Stop: 11/26/22 08:58 Last Admin: 10/28/22 21:32 Dose: 1 each Miscellaneous Information (Pharmacy Glycemic Mgmt Consult) 1 each N/A UD PRN PRN Reason: Consult Stop: 11/25/22 19:20 Nicotine (Nicotine 21 Mg/24 Hr Tdsy) 21 mg TD HS [facility] Stop: 11/25/22 20:59 Last Admin: 10/28/22 21:31 Dose: 21 mg Ondansetron HCl (Ondansetron 4 Mg Od Tab) 4 mg PO Q8H PRN PRN Reason: NAUSEA/VOMITING Stop: 11/25/22 19:44 Pantoprazole Sodium ([facility] 40 Mg [facility]) [facility] Stop: 11/26/22 06:29 Last Admin: 10/29/22 05:25 Dose: 40 mg Polyethylene Glycol (Polyethylene (Miralax) 17 Gm Pack) 17 gm PO BID [facility] Stop: 11/25/22 20:59 Last Admin: 10/29/22 07:59 Dose: 17 gm Potassium Chloride (Potassium Chloride Crtab 20 Meq Tabcr) 20 meq PO BID [facility] Stop: 11/25/22 20:59 Last Admin: 10/29/22 07:59 Dose: 20 meq Prednisone (Prednisone 20 Mg Tab) 20 mg PO DAILY [facility] Stop: 11/26/22 14:59 Last Admin: 10/29/22 08:07 Dose: 20 mg Sennosides (Senna 8.6 Mg Tab) 8.6 mg PO DAILY PRN PRN Reason: Constipation Stop: 11/25/22 19:20 Spironolactone (Spironolactone 25 Mg Tab) 25 mg PO [facility] Stop: 11/26/22 08:59 Last Admin: 10/29/22 08:08 Dose: 25 mg Tamsulosin HCl (Tamsulosin Hcl 0.4 Mg Cap) 0.8 mg PO [facility] Stop: 11/26/22 08:59 Last Admin: 10/29/22 08:07 Dose: 0.8 mg Umeclidinium [place] (Umeclidinium [place] 62.5mcg/Blister 7 Puffs/Inhaler) 1 puffs INH DAILY [facility]; Protocol Stop: 11/26/22 08:59 Last Admin: 10/29/22 07:58 Dose: 1 puffs Warfarin Sodium (Warfarin Sod 5 Mg Tab) 5 mg PO Mo@1600 [facility] Stop: 11/25/22 19:20 Last Admin: 10/26/22 20:41 Dose: 5 mg Warfarin Sodium (Warfarin Sod 2.5 Mg Tab) 2.5 mg PO SuTuWeThFrSa@1600 [facility] Stop: 11/26/22 15:59 Last Admin: 10/28/22 16:15 Dose: 2.5 mg
[2022-10-29] MEDS: PROMETHAZINE HCL 12.5 MG in SODIUM CHLORIDE 0.9% 50 ML IV PRN (11:36)
--- NOTE | 2022-10-29 16:58 | Discharge Summary ---
Date of Service October 29, 2022 Admission HPI Per Admitting Provider 52 yo morbidly obese man with a history of noncompliance and chronic opioid abuse presents to the ER with recurrent falls reported at home. He was discharged from the hospital a few days ago and was cleared by therapy to return home from a strength and function standpoint. However, he reports that within one hour of returning home he felt lightheaded and continued to pass out every day each time he would try and stand up and walked. He was frightening the 6 yo grandson with whom he lives because he reportedly fell hard in front of him and lost consciousness. His is in tears today, endorsing that he cannot ambulate because of these recurrent falls. There are no other symptoms reported including no headache, stroke like symptoms, or infectious symptoms such as fevers or chills. He is alert and sitting upright in the chair, able to give a full history of events. There was no reported tongue biting or loss of bowel function and prior to episodes, he reported feeling them come on. I was unable to assess his PO intake but he is still smoking actively. No known h/o seizures but per there have been instances of him passing out in the past. Workup today in the ER reveals a leukocytosis thought secondary to recent steroid use. Mag is 1.6, otherwise, CBC, CMP is at baseline. There is some possible bacteria in his urine and he has a chronic indwelling fontaine, which he has been unwilling to have removed in the past. He is not septic. Will await culture results and monitor clinical status. CT head is negative, CT lumbar spine reveals no acute lumbar spine fracture or subluxation, no change in an old mild L1 compression fracture since prior CT, moderate multilevel degenerative changes within the lumbar spine. Admission Exam Per Admitting Provider Physical Exam: CONSTITUTIONAL: morbidly obese, disheveled, vitals are stable. NAD. EYES: pupils are round and equal bilaterally, normal conjunctivae, no scleral icterus ENT: external ear and nose normal, mucous membranes moist NECK: trachea midline RESPIRATORY: wheezing throughout all lung hendrickson, normal respiratory effort CARDIOVASCULAR: regular rate and rhythm, S1 and 2 heard without murmurs, gallops or rubs, no JVD, no peripheral edema CHEST: inspection of chest was normal GASTROINTESTINAL: soft, nontender, ND, protuberant, no guarding : fontaine catheter in place. MUSCULOSKELETAL: moves all extremities equally, head is normocephalic and atraumatic SKIN: warm and dry NEUROLOGIC: No facial palsy, no dysarthria. CN 2-12 grossly intact, no sensory deficit, normal cognition, normal speech, no tremor, gives a clear history PSYCHIATRIC: alert and oriented to person, place and time. Makes good eye contact, language grossly intact, recent and remote memory grossly intact. Principal Diagnosis Syncope likely vasovagal, compensated CHF, COPD, type 2 diabetes, history of pulmonary embolism on Coumadin Discharge Exam Laying in bed comfortably Constitutional well developed, well nourished and + morbidly obese; not ill appearing Eyes PERRL, conjunctivae normal, anicteric sclerae ENMT external ear and nose normal, oropharynx normal Neck trachea midline, no thyromegaly Respiratory no respiratory distress Auscultation: + diminished lung sounds and + crackles (Minimal crackles at the bases) Cardiovascular Rate/Rhythm: regular rate and regular rhythm; not tachycardic Heart Sounds: normal S1 and normal S2; no murmur Extremities: + edema (Trace edema bilaterally with chronic skin changes) Gastrointestinal (Abdomen) Inspection/Auscultation: normal bowel sounds; abdomen not distended Percussion/Palpation: abdomen soft; abdomen nontender Neurologic normal touch/pain/proprioception, moves all extremities and + focal motor deficit Psychiatric A+Ox3, euthymic affect Lymphatic no cervical or axillary lymphadenopathy Discharge Data Allergies Allergy/AdvReac Type Severity Reaction Status Date / Time cefepime Allergy Intermediate rash Verified 10/26/22 15:32 daptomycin Allergy Intermediate rash Verified 10/26/22 15:32 fentanyl Allergy Intermediate RASH/HIVES/SKIN Verified 10/26/22 15:32 REDNESS naloxone AdvReac Severe extremely Verified 10/26/22 15:32 sick acetaminophen [From Tylenol] AdvReac Intermediate IRRITATES Verified 10/26/22 15:32 & UPSET STOMACH ibuprofen AdvReac Intermediate Nausea Verified 10/26/22 15:32 valproic acid AdvReac Intermediate PANCREATITS Verified 10/26/22 15:32 Consultations 10/26/22 15:02 ED Decision to Admit Stat 10/26/22 19:21 Consult Cardiology Routine Consult Neurology Routine Ordered Studies 10/26/22 11:41 CT abd pelvis IV con only Stat CT head/brain wo con Stat CT lumbar spine w con Stat Hospital Course (1) Syncope and collapse: Recurrent falls reported at home just after discharge and through the weekend. Uncertain cause and not sure if he is losing consciousness but seemed concerned about this stating he was falling without catching himself at times. CT head is negative. Mag is low at 1.6 which is a chronic issue and he is on magnesium supplementation at home. He also takes potassium supplementation with diuretics. Recent prolonged hospital stay for diuretic therapy for heart failure exacerbation. Multiple comorbidities that are uncontrolled at baseline including insulin dependent diabetes, hypertension. He is morbidly obese. EEG in am. Consult neurology and cardiology for their thoughts in this complex, morbidly obese, noncompliant patient. Overall, it appears that he is unable to take care of himself based on my review of the records. also reports there is a new baby coming along into the home in one month's time, a child of one of her children. The patient reports not wanting to go to a fci to live and his said she can't do that to him. She does endorse him going to a short stay in rehab if he qualifies, however. PT/OT ordered for evaluation to see if he meets the criteria for this assistance. 10/27/2022 Admitted with recurrent falls with possible loss of consciousness in 1 of those as per the patient No more episodes since admission Appreciate cardiology input and recommendation for Zio patch as an outpatient Has had EEG-unremarkable Awaiting neurology evaluation We will get PT and OT evaluation prior to discharge Appreciate neurology input and recommendation PT OT recommended home Denies any more syncope and/or significant dizziness with ambulation Will be discharged home tomorrow Remains medically stable without any more dizziness and or syncope Will be discharged home this afternoon Urine is growing coagulase-negative staph Does not have any urinary symptoms and no fever and chills. White count is elevated likely secondary to's use of steroid It grew in July of last year and ID consultation was taken ID thought that was due to contaminant His catheter has not been changed for about a month We will change the catheter and repeat UA-positive we will treat Repeat urine culture is negative and the patient be discharged home today (2) CHF (congestive heart failure): chronic, appears compensated. Cont home diuretics. Remains euvolemic as per the abalone processor We will continue with current home medications No signs and/or symptoms of fluid overload We will continue current medications including diuretics and spironolactone (3) Hypomagnesemia: Repleted with 2 grams Mg IV in the ER. Cont home magox supplementation. (4) Abnormal finding on urinalysis: chronic indwelling fontaine. Patient has been counseled that this is a nidus of infection yet refuses to have it removed of different occasions. He is not septic and denies any fevers or chills at this time. No UTI symptoms or abdominal pain reported. Will await culture results. Has chronic Fontaine Will await culture and sensitivity Repeat urine culture has been negative (5) Leukocytosis: Thought secondary to recent steroid use. Still wheezing but this is consistent with his active smoking history. Will stop steroids at this time and monitor CBC in am. Peripheral smear request sent to pathology. Likely secondary to use of prednisone Minimal wheezing Was on tapering dose and will continue the taper (6) Chronic indwelling Fontaine catheter: as above. (7) COPD (chronic obstructive pulmonary disease): chronic, stable. Wheezing today in setting of active smoking. Smoking cessation advised, however, this patient has a history of being argumentative with providers and noncompliance with recommendations historically. Doubt any exacerbation but will continue the tapering dose of steroid as he was getting (8) Tobacco use: Smoking cessation advised, nicoderm patch ordered. (9) Morbid obesity: Contributing to all his chronic health problems. Lifestyle modifications recommended to reduce overall percent body fat and improve lean muscle. (10) Opioid dependence: continues on buprenorphine therapy per home regimen. No other narcotics or IV substances will be given unless he is actively vomiting or not eating. H/O abuse. Significant stool burden on CT scan today. Hold iron which can contribute. Increase scheduled Miralax. Encourage ambulation as tolerated with assistance. Will not be given any narcotics pain medication Wanted to have IV Tylenol prior to physical therapy as oral Tylenol does not work at all We will comply (11) Depression with anxiety: chronic, continue home duloxetine. Cont treating underlying pain with buprenorphine, gabapentin, Flexeril PRN all per home regimen. (12) Chronic anticoagulation: INR at goal, cont coumadin per home regimen. INR is therapeutic and was strongly advised to take Coumadin regularly and follow-up with the coagulation clinic (13) Noncompliance: DVT proph-warfarin with therapeutic INR Full Code Dispo-to [facility] tele overnight. Workup at this time is unremarkable for cause of syncope. EEG and specialty consultations as above. PT/OT. Would anticipate he can return home tomorrow. DO Gilda Saucedo Hospitalist Total Time Total Time Spent Total Time Spent (In Minutes): 40 minutes Discharge Plan Discharge Items Patient Disposition: Home - Self-Care Reason For Visit: SYNCOPE/RECURRENT FALLS/SHAKING Discharge Diagnosis: Syncope likely vasovagal, compensated CHF, COPD, type 2 diabetes, history of pulmonary embolism on Coumadin Condition on Discharge: Good Activity: Resume your previous activity Non-emergency contact: Primary Care Provider Call non-emergency contact if: you have any medication questions and your symptoms worsen Follow-up/Referrals: Roberto Askew MD [Primary Care Provider] - Diet: Carb Consistent or DM2 Fluids: 1800ml (7 cups) Addtl Attending Provider Instructions: Please take precautions to avoid falls Take your medications as advised Please keep appointments with your healthcare providers You will have monitoring tech set up as an outpatient Please have regular follow-up with the coagulation clinic Pending Studies at Discharge: No Stand-Alone Forms: My [facility], Smoking Cessation Medications and DC Order Prescriptions: Continued tamsulosin [Flomax] 0.4 mg capsule 0.8 mg PO QAM Qty: 180 3RF polyethylene glycol 3350 [Miralax] 17 gram powder in packet 17 g PO QAM nitroglycerin [Nitrostat] 0.4 mg tablet, sublingual 0.4 mg Sublingual DIRECTED PRN (Reason: CHEST PAIN) Rx Instructions: PLACE ONE TABLET UNDER THE TONGUE EVERY 5 MINUTES FOR UP TO 3 DOSES OVER 15 MINUTES IF NEEDED FOR CHEST PAIN nystatin 100,000 unit/gram Powder 1 applic TOPICAL TID PRN (Reason: Skin Irritation) Rx Instructions: APPLY DIRECTED TO ABDOMINAL FOLDS cyclobenzaprine 10 mg Tablet 10 mg PO BID PRN (Reason: Muscle Spasm) ipratropium-albuterol 0.5 mg-3 mg(2.5 mg base)/3 mL Solution For Nebulization 3 ml INHALATION Q6H PRN (Reason: Shortness Of Breath Or Wheezing) docusate sodium 100 mg Capsule 100 mg PO BID duloxetine 60 mg capsule,delayed release(DR/EC) 60 mg PO DAILY famotidine 20 mg tablet 20 mg PO DAILY fluticasone propionate 50 mcg/actuation spray,suspension 2 spray Intranasal DAILY aspirin [Ecotrin Low Strength] 81 mg tablet,delayed release (DR/EC) 81 mg PO QAM finasteride 5 mg tablet 5 mg PO QAM metoprolol succinate 50 mg Tablet Extended Release 24 Hr 75 mg PO BID spironolactone 25 mg Tablet 25 mg PO QAM atorvastatin 80 mg tablet 80 mg PO QPM Rx Instructions: TAKE THIS MEDICATION EVERY AFTERNOON sennosides [senna] 8.6 mg Tablet 8.6 mg PO DAILY PRN (Reason: Constipation) folic acid 1 mg Tablet 1 mg PO QAM furosemide [Lasix] 40 mg tablet 40 mg PO BID albuterol sulfate 90 mcg/actuation Hfa Aerosol Inhaler 2 puff INHALATION Q4 PRN (Reason: Dyspnea) omeprazole 20 mg Capsule,Delayed Release(Dr/Ec) 20 mg PO DAILYBB gabapentin 800 mg tablet 800 mg PO TID buprenorphine HCl 8 mg tablet, sublingual 8 mg SUBLINGUAL TID Rx Instructions: Per Dr 1st glipizide 10 mg tablet 10 mg PO BID urea [Ureacin-20] 20 % Cream 1 applic TOPICAL BID magnesium oxide 400 mg (241.3 mg magnesium) tablet 400 mg PO DAILY ferrous sulfate 325 mg (65 mg iron) Tablet 325 mg PO QAM Rx Instructions: Take with breakfast hydroxyzine HCl 25 mg Tablet 25 mg PO QID PRN (Reason: Anxiety) ondansetron HCl 4 mg Tablet 4 mg PO Q8H PRN (Reason: NAUSEA/VOMITING) benzonatate 100 mg Capsule 100 mg PO TID PRN (Reason: cough) Qty: 10 0RF metolazone 2.5 mg tablet 2.5 mg PO 3XWK Rx Instructions: take 1 tab 3x a week (mon/wed/fri) nicotine [Nicoderm CQ] 21 mg/24 hr Patch 24 Hour 21 mg transdermal HS 30 Days Qty: 30 0RF diclofenac sodium [Voltaren Arthritis Pain] 1 % Gel 2 g EXT BID Qty: 50 0RF prednisone 10 mg tablet 10 mg PO UD Qty: 30 0RF Rx Instructions: 2 p.o. daily for 5 days, 1 p.o. daily for 5 days codeine-guaifenesin [Guaiatussin AC] 10-100 mg/5 mL Liquid 5 ml PO Q6H PRN (Reason: cough) Qty: 120 0RF Lactinex 1 million cell tablet,chewable 1 tab PO TID Qty: 30 0RF isosorbide dinitrate 30 mg tablet 30 mg PO DAILY warfarin 5 mg tablet See Rx Instructions .ROUTE .COMPLEX Rx Instructions: 2.5 - 5 mg orally ;take 5 mg in the evening every wednesday and take 2.5 mg every other evening of the week guaifenesin [Mucinex] 600 mg Tablet Extended Release 12hr 1,200 mg PO BID potassium chloride 20 mEq tablet extended release 20 meq PO BID lorazepam 0.5 mg tablet 0.5 mg PO Q8 PRN (Reason: Anxiety) Qty: 6 0RF insulin aspart U-100 [Novolog FlexPen U-100 Insulin] 100 unit/mL (3 mL) Insulin Pen 1 unit SUBCUT TIDM Qty: 30 0RF Rx Instructions: inject 1 unit uner the skin three times a day with meals. units as per sliding scale as instructed by provider to cover for steroid coverage when warranted insulin glargine [Lantus Solostar U-100 Insulin] 100 unit/mL (3 mL) Insulin Pen 50 unit SC HS 30 Days Qty: 15 0RF Stiolto Respimat 2.5-2.5 mcg/actuation mist 2 puff inhalation DAILY Qty: 4 0RF Discharge Orders: Discharge Order (Routine); Ordered 10/29/22 Ordered By: Augustus Pickering/Other Patient Handouts: What Is Syncope, Treating Syncope: Prevention Admission Data Admit Date/Time: 10/26/22 16:00 Attending Provider: Augustus Vasquez Admit Provider: Mala Grace Primary Care Provider: Roberto Askew Other Providers: Mala Grace ; Jacob Penn ; Johnny Flores Other Interventions: Discharge Summary Assessment (RN) Last Done: 10/29/22 11:24
== END 2022-10-29 12:23 | disposition home or self-care (01) ==
LOC: ED 11:03 → EDINP 11:03 → SUATTDRO 16:00 → 2W 19:21

== ENCOUNTER 2022-11-12 12:56 | Inpatient (IN) ==
[2022-11-12] MEDS ORDERED: methylPREDNISolone 125 MG/2 ML VIAL IV STA (13:32)
[2022-11-12] MEDS ORDERED: ALBUT/IPRATROP 3MG/0.5MG NEB 3 ML VIAL NEB STA (13:32)
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
--- NOTE | 2022-11-12 13:59 | XRay Report ---
XR chest 1V portable CLINICAL HISTORY: Dyspnea TECHNIQUE: Single frontal radiograph of the chest was obtained. Comparison: Comparison is made to chest radiograph 10/26/2022 FINDINGS: Exam is limited by underpenetration. The cardiomediastinal silhouette is normal. The lungs are clear. No evidence of pleural effusion or pneumothorax. IMPRESSION: No acute chest disease. ACT 112: Negative or not required by law. Electronically signed by: Armand Tobar M.D. 11/12/2022 1:56 PM
[2022-11-12 14:09] LABS: Appearance Urine Clear (Clear); Bacteria Urine Automated Negative (Negative); Bilirubin Urine Negative (Negative); Blood Urine 2+ (Negative); Color Urine Yellow; Glucose Urine UA Negative (Negative); Ketones Urine Negative (Negative); Leukocyte Esterase Urine 3+ (Negative); Nitrite Urine Negative (Negative); Protein Urine Trace (Negative); RBC Urine Automated >30 /hpf (0-4); Specific Gravity Urine 1.015 (1.000-1.030); Urobilinogen Urine Negative (Negative)
[2022-11-12 14:26] LABS: Albumin Globulin Ratio 1.1 (0.9-2); Albumin Level 3.5 gm/dl (3.4-5.0); BUN Creatinine Ratio 13.2 (10-20); Bilirubin,Total 1.1 mg/dl (0.2-1.0); Calcium 9.3 mg/dl (8.5-10.1); Creatinine Clr Calc Pharmacy 125.8 ml/min; Est GFR (African American) 79.3 ml/min; Est GFR (Non-African American) 68.4 ml/min; Globulin 3.3 gm/dl (2.5-4.0); Potassium 2.7 mmol/L (3.5-5.1); Total Protein 6.8 gm/dl (6.0-8.3)
[2022-11-12 14:36] LABS: Troponin I High Sensitivity 10.1 pg/ml (0-20)
[2022-11-12 14:38] LABS: Basophils # (auto) 0.06 K/uL (0-0.2); Basophils % (auto) 0.4 %; Eosinophils # (auto) 0.42 K/uL (0-0.50); Hematocrit (blood only) 40.2 % (42.0-52.0); Hemoglobin 13.4 g/dl (14.0-18.0); Immature Granulocytes # (auto) 0.15 K/uL (0.01-0.20); Immature Granulocytes % (auto) 1.1 %; Lymphocytes # (auto) 2.69 K/uL (1.2-3.4); Lymphocytes % (auto) 19.1 %; Mean Corpuscular Hemoglobin 27.6 pg (25.0-34.0); Mean Corpuscular Hgb Conc 33.3 g/dL (32.0-36.0); Mean Corpuscular Volume 82.9 fL (80.0-100.0); Mean Platelet Volume 10.1 fL (9.4-12.4); Monocytes # (auto) 1.08 K/uL (0.11-0.59); Monocytes % (auto) 7.7 %; Neutrophils # (auto) 9.68 K/uL (1.40-6.50); Neutrophils % (auto) 68.7 %; Nucleated RBC # (auto) 0.04 K/uL (0-0.12); Nucleated RBC % (auto) 0.3 %; Platelet Count 234 K/uL (130-400); RDW Coefficient of Variation 18.6 % (11.5-14.5); Red Blood Count 4.85 M/uL (4.70-6.10); White Blood Count 14.08 K/ul (4.8-10.8)
[2022-11-12] MEDS ORDERED: POTASSIUM CHLORIDE CRTAB 20 MEQ TABCR PO STA (14:45)
[2022-11-12 14:51] LABS: INR 3.7 (0.9-1.1); Partial Thromboplastin Ratio 1.7; Prothrombin Time 37.1 Seconds (9.0-12.0)
[2022-11-12 14:53] LABS: HCO3 VBG 43 mmol/L; Oxygen Saturation VBG 71.3 %; PCO2 VBG 57 mmHg (38-50); PO2 VBG 40 mmHg; pH VBG 7.49 (7.36-7.41)
[2022-11-12 15:16] LABS: Partial Thromboplastin Time 47.8 Seconds (21.0-31.0)
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
--- NOTE | 2022-11-12 16:09 | Communication Note ---
Date of Service: November 12, 2022 Patient seen and examined. History notable for 52-year-old man with multiple medical problems as detailed, recurrent hospitalization who presents with syncope, feeling unwell Reports an episode of syncopal episode within the past 3 days Reports episodes where he felt he may pass out but "sat down real quick and did not" Denied dizziness. Stated he could not really describe the episodes Reports increased involuntary muscle twitches in the past few days in his extremities that he dropped his cigarettes Reports chronic cough. Reports increased wheezing and some shortness of breath. Reports he normally uses oxygen for 5 L at bedtime but occasionally uses it during the day if he feels short of breath. Denied any increased leg swelling. On exam, General: Obese man in no distress Eyes: PERRL, conjunctivae normal, not pale, anicteric sclerae, EOM intact bilaterally ENMT: External ear and nose normal, oropharynx normal Respiratory: Normal respiratory effort, on nasal cannula, prolonged expiratory phase with expiratory rhonchi Cardiovascular: RRR S1 S2 Gastrointestinal (Abdomen): Abdomen is not distended, soft, non-tender to p alpation, no guarding, no palpable hepatosplenomegaly, normal bowel sounds Musculoskeletal: Chronic pedal edema with stasis changes Genitourinary: No CVA tenderness Neurologic: Alert and oriented x 3, No focal weakness, sensation grossly intact Psychiatric: Euthymic affect Labs notable for leukocytosis of 14, hemoglobin of 13.4, INR of 3.7, VBG pH of 7.49, PCO2 of 57, sodium of 133, potassium of 2.7, bicarb of 41, glucose of 220, alkaline phosphatase of 112 Chest x-ray did not show any acute abnormality Syncopal episode. Acute on chronic respiratory failure with hypoxia and hypercapnea COPD exacerbation. Hypokalemia Syncopal episode +/- twitching episodes could be related to hypoxia and electrolyte abnormality Replete K. Hold home diuretics till K is repleted Check Mg, phos Supplement oxygen Get ABG Start Prednisone, doxycycline Duonebs qid Patient reported he had not received the zio patch from Cards office. Attending tomorrow morning may need to follow up with Card office about this. Other plans as detailed by Ly Suarez PA-C
[2022-11-12 16:36] LABS: Magnesium 1.1 mg/dl (1.7-2.4); Phosphorus 3.3 mg/dl (2.5-4.9)
--- NOTE | 2022-11-12 17:10 | Electrocardiogram Report ---
Test Reason : Blood Pressure : / mmHG Vent. Rate : 097 BPM Atrial Rate : 097 BPM P-R Int : 148 ms QRS Dur : 106 ms QT Int : 348 ms P-R-T Axes : 030 050 154 degrees QTc Int : 441 ms Normal sinus rhythm Possible Left atrial enlargement Incomplete right bundle branch block Abnormal ECG When compared with ECG of 28-OCT-2022 08:57, Criteria for Anterior infarct are no longer Present ST more depressed Lateral leads T wave inversion now evident in Inferior leads T wave inversion now evident in Lateral leads Confirmed by Luan Escalante ([id number]) on 11/12/2022 5:09:48 PM Referred By: REFERRED SELF Confirmed By:Mark Escalante
[2022-11-12 17:26] LABS: Base Excess ABG 17.9 mEq/L (-9-1.8); HCO3 ABG 45 mmol/L (19-24); Oxygen Saturation ABG 94.3 % (90-95); PCO2 ABG 60 mmHg (35-46); PO2 ABG 65 mmHg (80-95); pH ABG 7.48 (7.35-7.45)
[2022-11-12 17:27] LABS: Allen Test Pos (Pos)
[2022-11-12] MEDS ORDERED: GLUCOSE 40% GEL 15 GM TUBE PO PRN (18:10)
[2022-11-12] MEDS ORDERED: DEXTROSE 50% 50 ML SYRINGE IV PRN (18:10)
[2022-11-12] MEDS ORDERED: ALBUTEROL HFA 8 GM INHALER INH PRN (18:10)
[2022-11-12] MEDS ORDERED: NYSTATIN POWDER 15GM BTL EXT PRN (18:10)
[2022-11-12] MEDS ORDERED: NITROGLYCERIN SL 0.4 MG/TAB TAB SL PRN (18:10)
[2022-11-12] MEDS ORDERED: CARBOHYDRATES FOR HYPOGLYCEMIA PO PRN (18:10)
[2022-11-12] MEDS ORDERED: hydrOXYzine HCl 25 MG TAB PO PRN (18:10)
[2022-11-12] MEDS ORDERED: ACETAMINOPHEN 325 MG TAB PO PRN (18:10)
[2022-11-12] MEDS ORDERED: SENNA 8.6 MG TAB PO PRN (18:10)
[2022-11-12] MEDS ORDERED: GLUCAGON FOR INJ 1 MG VIAL SQ PRN (18:10)
[2022-11-12] MEDS ORDERED: GLUCOSE 10 TAB/TUBE PO PRN (18:10)
[2022-11-12] MEDS ORDERED: ONDANSETRON 4 MG OD TAB PO PRN (18:35)
[2022-11-12] MEDS ORDERED: MAGNESIUM SULFATE / D5W 1 GM/100 ML BAG IV STA (18:50)
[2022-11-12] MEDS ORDERED: PHARMACY GLYCEMIC MGMT CONSULT PRN (18:51)
[2022-11-12] MEDS: POTASSIUM CHLORIDE / WTR 10 MEQ/100 ML PLCT IV SCH ×4 (18:55→22:47)
[2022-11-12] MEDS ORDERED: WARFARIN SOD 5 MG TAB PO SCH (19:30)
[2022-11-12] MEDS: INSULIN ASPART PER UNIT SC SCH ×2 (19:33→21:04)
[2022-11-12] MEDS: FUROSEMIDE 40 MG TAB PO SCH (19:34)
[2022-11-12] MEDS: LEVALBUTEROL 1.25MG/0.5ML NEB NEB SCH (20:11)
[2022-11-12] MEDS: POTASSIUM CHLORIDE CRTAB 20 MEQ TABCR PO SCH (20:28)
[2022-11-12] MEDS: DOXYCYCLINE HYCLATE 100 MG CAP PO SCH (20:28)
[2022-11-12] MEDS: guaiFENesin 600 MG TABCR PO SCH (20:29)
[2022-11-12] MEDS: ADVANCED PROBIOTIC 1250 MG CAPSULE PO SCH (20:29)
[2022-11-12] MEDS: METOPROLOL SUCC 25MG EXT REL TAB PO SCH (20:30)
[2022-11-12] MEDS: DOCUSATE SODIUM 100 MG CAP PO SCH (20:31)
[2022-11-12] MEDS: NICOTINE 21 MG/24 HR TDSY TD SCH (20:31)
[2022-11-12] MEDS: ATORVASTATIN 40 MG TAB PO SCH (20:31)
[2022-11-12] MEDS: GABAPENTIN 800 MG TAB PO SCH (20:32)
[2022-11-12] MEDS ORDERED: glipiZIDE 5 MG TAB PO SCH (21:00)
[2022-11-12] MEDS: buprenorphine HCL 8 MG SUBL SL SCH (21:01)
[2022-11-12] MEDS: CYCLOBENZAPRINE HCL 10 MG TAB PO PRN (21:01)
[2022-11-12] MEDS: LORazepam 0.5 MG TAB PO PRN (21:01)
[2022-11-12] MEDS: DICLOFENAC SOD 1% GEL 100 GM TUBE EXT SCH (21:03)
[2022-11-12] MEDS: LANTUS PER UNIT CHARGE SC SCH (21:04)
[2022-11-13] MEDS: LEVALBUTEROL 1.25MG/0.5ML NEB NEB SCH ×4 (00:22→19:05)
[2022-11-13] MEDS: INSULIN ASPART PER UNIT SC SCH ×6 (00:24→22:40)
[2022-11-13 01:17] LABS: BUN Creatinine Ratio 17.1 (10-20); Creatinine Clr Calc Pharmacy 145.3 ml/min; Est GFR (African American) 94.1 ml/min; Est GFR (Non-African American) 81.2 ml/min; Potassium 3.5 mmol/L (3.5-5.1)
[2022-11-13] MEDS: PANTOprazole 40 MG TAB PO SCH (05:40)
[2022-11-13] MEDS: ALBUT/IPRATROP 3MG/0.5MG NEB 3 ML VIAL INH PRN ×2 (07:09→13:51)
[2022-11-13] MEDS: POLYETHYLENE (MIRALAX) 17 GM PACK PO SCH (08:43)
[2022-11-13] MEDS: buprenorphine HCL 8 MG SUBL SL SCH ×3 (08:43→22:41)
[2022-11-13] MEDS: POTASSIUM CHLORIDE CRTAB 20 MEQ TABCR PO SCH ×2 (08:45→22:19)
[2022-11-13] MEDS: LORazepam 0.5 MG TAB PO PRN ×2 (08:45→22:43)
[2022-11-13] MEDS: CYCLOBENZAPRINE HCL 10 MG TAB PO PRN ×2 (08:45→22:41)
[2022-11-13] MEDS: DOCUSATE SODIUM 100 MG CAP PO SCH ×2 (08:45→22:19)
[2022-11-13] MEDS: BENZONATATE 100 MG CAPSULE PO PRN ×2 (08:45→22:41)
[2022-11-13] MEDS: FLUTICASONE PROPIONATE NA SPR 16 GM BTL SCH (08:49)
[2022-11-13] MEDS: DICLOFENAC SOD 1% GEL 100 GM TUBE EXT SCH ×2 (08:50→22:32)
[2022-11-13 08:52] LABS: Hematocrit (blood only) 42.4 % (42.0-52.0); Hemoglobin 13.9 g/dl (14.0-18.0); Mean Corpuscular Hemoglobin 27.6 pg (25.0-34.0); Mean Corpuscular Hgb Conc 32.8 g/dL (32.0-36.0); Mean Corpuscular Volume 84.1 fL (80.0-100.0); Mean Platelet Volume 9.7 fL (9.4-12.4); Platelet Count 236 K/uL (130-400); RDW Coefficient of Variation 18.6 % (11.5-14.5); RDW Standard Deviation 54.2 fL (36.4-46.3); Red Blood Count 5.04 M/uL (4.70-6.10); White Blood Count 11.42 K/ul (4.8-10.8)
[2022-11-13] MEDS: GABAPENTIN 800 MG TAB PO SCH ×3 (08:52→22:20)
[2022-11-13] MEDS: ASPIRIN 81 MG ECTAB PO SCH (08:52)
[2022-11-13] MEDS: FINASTERIDE 5 MG TAB PO SCH (08:53)
[2022-11-13] MEDS: METOPROLOL SUCC 25MG EXT REL TAB PO SCH ×2 (08:54→22:20)
[2022-11-13] MEDS: DULoxetine HCL 60 MG CAP PO SCH (08:54)
[2022-11-13] MEDS: FOLIC ACID 1 MG TAB PO SCH (08:54)
[2022-11-13] MEDS: FAMOTIDINE 20 MG TAB PO SCH (08:54)
[2022-11-13] MEDS: MAGNESIUM OXIDE 400 MG TAB PO SCH (08:55)
--- NOTE | 2022-11-13 08:58 | Cardiology Consultation ---
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 Stop: 12/13/22 02:59 Sennosides (Senna 8.6 Mg Tab) 8.6 mg PO DAILY PRN PRN Reason: Constipation Stop: 12/12/22 18:09 Spironolactone (Spironolactone 25 Mg Tab) 25 mg PO [facility] Stop: 12/13/22 08:59 Tamsulosin HCl (Tamsulosin Hcl 0.4 Mg Cap) 0.8 mg PO [facility] Stop: 12/13/22 08:59 Warfarin Sodium (Warfarin Sod 5 Mg Tab) 5 mg PO Mo@1600 [facility] Stop: 12/16/22 15:59 Warfarin Sodium (Warfarin Sod 2.5 Mg Tab) 2.5 mg PO SuTuWeThFrSa@1600 [facility] Stop: 12/13/22 15:59
[2022-11-13] MEDS: ADVANCED PROBIOTIC 1250 MG CAPSULE PO SCH ×3 (08:59→22:20)
[2022-11-13] MEDS: DOXYCYCLINE HYCLATE 100 MG CAP PO SCH ×2 (09:00→22:21)
[2022-11-13] MEDS: predniSONE 20 MG TAB PO SCH (09:00)
[2022-11-13] MEDS ORDERED: metOLazone 2.5 MG TABLET PO SCH (09:00)
[2022-11-13] MEDS ORDERED: LANTUS PER UNIT CHARGE SC SCH (09:00)
[2022-11-13] MEDS: guaiFENesin 600 MG TABCR PO SCH ×2 (09:00→22:20)
[2022-11-13] MEDS: ISOSORBIDE DINITRATE 10 MG TAB PO SCH (09:00)
[2022-11-13] MEDS: TAMSULOSIN HCL 0.4 MG CAP PO SCH (09:00)
[2022-11-13] MEDS ORDERED: NON-FORMULARY MEDICATION (Tiotropium-Olodaterol [Stiolto Respimat] 2.5-2.5 mcg/actuation m INH SCH (09:00)
[2022-11-13] MEDS: SPIRONOLACTONE 25 MG TAB PO SCH (09:00)
[2022-11-13 09:18] LABS: BUN Creatinine Ratio 18.1 (10-20); Calcium 9.9 mg/dl (8.5-10.1); Creatinine Clr Calc Pharmacy 183.8 ml/min; Est GFR (African American) 117.3 ml/min; Est GFR (Non-African American) 101.2 ml/min; Magnesium 1.9 mg/dl (1.7-2.4); Phosphorus 2.3 mg/dl (2.5-4.9); Potassium 3.2 mmol/L (3.5-5.1)
--- NOTE | 2022-11-13 09:18 | Pharmacy Report ---
Pharmacy Glycemic Short Note 2 - Date of Service November 13, 2022 - Glycemic Short BSG Results (Last 24 hours): 11/12/22 11/12/22 11/12/22 13:25 20:02 20:03 Glucose 220 H POC Glucose 376 H* 354 H* 11/12/22 11/12/22 11/13/22 22:37 22:38 00:16 Glucose POC Glucose 407 H* 377 H* 380 H* 11/13/22 11/13/22 11/13/22 00:34 01:44 03:35 Glucose 401 H* POC Glucose 350 H* 346 H* 11/13/22 11/13/22 05:39 07:53 Glucose POC Glucose 271 H 272 H OUTPATIENT ANTIDIABETIC REGIMEN: * Lantus 50 units SQ HS * Novolog SQ TID meals per scale * Glipizide 10 mg PO BID ASSESSMENT: * Stanton presents due to complainants of syncope and worsening shortness of breath. He was started on steroids for treatment of a COPD exacerbation (solu medrol 125 mg IV x 1, then prednisone 40 mg PO daily). He is known to the glycemic service from prior admissions. * Will utilize insulin doses that have worked well for the patient in the past while on steroids. During an admission earlier this month, he required ~60 units of Lantus per day while on prednisone 20 mg. I suspect he will need > 60 units/day while on current dose of pred 40 mg. Will adjust as needed. PLAN FOR INPATIENT GLYCEMIC CONTROL: * Hold outpatient oral diabetes medications * Basal insulin * Lantus 50 units SQ qHS * Additional 15 units SQ AM of 11/13 * Bolus insulin * NovoLog per scale ACHS or Q6hrs while NPO * Goal Range: Low 110 mg/dL - High 140 mg/dL * Correction Factor: 10 mg/dL/unit * Nutritional / Prandial insulin per carb ratio of 1 unit per 3 grams CHO consumed
[2022-11-13 09:52] LABS: Prothrombin Time 20.8 Seconds (9.0-12.0)
[2022-11-13] MEDS ORDERED: LACTULOSE SYRUP 20 GM/30 ML UDC PO ONE (11:15)
[2022-11-13] MEDS ORDERED: COUGH DROP (SUGAR FREE) LOZ 24 LOZ/1 BOX BUCCAL PRN (13:12)
[2022-11-13] MEDS ORDERED: POTASSIUM CHLORIDE CRTAB 20 MEQ TABCR PO STA (15:28)
--- NOTE | 2022-11-13 15:41 | Hospitalist Progress Note ---
Date of Service November 13, 2022 Assessment & Plan (1) Noncompliance: (2) COPD (chronic obstructive pulmonary disease): Plan (1) Chronic respiratory failure: (2) Acute exacerbation of COPD (chronic obstructive pulmonary disease): Plan: - Possible bronchospasm with wheezing & pt was not wearing O2 upon presenting - Tobacco cessation encouraged - nicotine patch ordered - Still wheezing, c/w prednisone 40 mg daily 11/12; doxy 11/12 - c/w home nebs and prn nebs. - incentive spirometer. - at baseline O2 requirement. (3) Syncope: - Follows with [facility] as oupatient, was previously set up to have Zio 2 week home monitor mailed to his house - he hasn't received it in the mail per his report - During last admission No arrhythmias were noted on tele, EKG was reviewed at admission - no acute changes. BP is stable. Appears Euvolemic. - Cardio evaled, recs to dc zaroxylyn. - pt to f/u w/ cards office on dc for zio patch monitoring. - c/w tele monitoring while in hospital. (4) CHF (congestive heart failure): -Most recent echo done on 08/17/2022 showing LVEF of 55 to 60%, mild concentric LVH, right ventricle mildly dilated - Chronic - Strict I/Os to maintain euvolemia - c/w home diures and KCL supplement. DC metolazone per cardio recs due to risk of hypokalemia. (5) Leukocytosis: Plan: - 14 K at admission , improved compared to previously - Concern for underlying infection? Possible that this is pulmonary source as he was wheezing and hypoxic upon arrival to the ER, however was not wearing s upplemental O2, here has been weaned down from 5L to 4L. Also could be his urine infection, await culture. (6) Chronic indwelling Fontaine catheter: Plan: - UA appears infected however has chronically dirty appearing urine, indwelling fontaine catheter in place because he has refused to have it removed previously despite counseling on it being a source of promoting infection. - Pt with tmax of 37.7 on admission, WBC is 14.08 at admission however this is improved compared to lab trend - Follow urine culture, pt on doxy for pulmonary cause. - From notes review- appears it was last changed on 10/11 -- will need exchanged during this admission (7) Chronic anticoagulation: Plan: - INR at goal, 3.7 on arrival, trend with am labs, 2.0 on 11/13, resume coumadin per home regimen tomorrow. - Cont follow-up with the coagulation clinic - Takes 5 mg Wednesday, and 2.5 mg all other days (8) Hypokalemia: 2.7 at admission; monitor and replete. DC'd metolazone. (9) Hypomagnesemia: monitor and replete. (10) 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: - ISS with accuchecks achs - Hold glipizide - Cont Lantus 50 U QHS --- pt has drank a full can of regular cola in the ER. Pt is irritable when asked to drink diet. (11) Morbid obesity: - BMI of 58.3, diet and exercises encouraged at bedside (12) Opioid dependence: - continues on buprenorphine therapy per home regimen. H/O abuse. - Cont scheduled Miralax. Encourage ambulation as tolerated with assistance. - Will not be given any narcotics pain medication - Will hold iron supplementation as pt reports constipation and this can add to that (13) Tobacco abuse disorder: - Cessation encouraged, pt refuses to quit, nicotine patch prn (14) Noncompliance: Chronic DVT ppx: cont coumadin CODE: Full code Admission and Anticipated Discharge Date Admission Date: November 12, 2022 Subjective Patient seen and examined at bedside as a follow-up of COPD exacerbation and leukocytosis and concern of urinary infection on the background of indwelling Fontaine catheter and syncope. Patient was lying in bed, on 2 L nasal cannula oxygen, reports no new acute event overnight, reports eating okay, reports has not moved bowels since last several days and would like bowel regimen including enema if needed, will try lactulose for now. Reports getting weak, and when he bears down he passess out. He reports he was talking with his sister when he had a syncope in the last 3 days but he did not drop his mobile during the event and he came back to consciousness and told her sister (over the phone) that he just had passing out. Physical Exam Physical Exam: GENERAL: Alert and oriented x3. NAD, on 4L NC O2, morbidly obese. HEENT: No pallor, no icterus. Pupils equal, round and reactive to light. Oral mucosa moist. NECK: No JVD, no neck masses. HEART: S1 and S2 heard. Regular rate and rhythm. No murmur, no gallop. RESPIRATORY SYSTEM: Normal AP diameter. No accessory muscle use. + wheezing, no crackles. ABDOMEN: Soft, bowel sounds present, nontender, no distention. CENTRAL NERVOUS SYSTEM: No facial droop. Speech is clear. Obeys simple commands. Moves extremities. EXTREMITIES: trace edema, ble chronic skin changes noted, no erythema seen. Results & Data Results & Data ([facility]) Vital Signs (Past 12 Hours) Vital Signs Temp Pulse Pulse Pulse Resp BP Pulse Ox 11/13/22 13:54 80 18 94 11/13/22 11:41 36.6 C 94 H 20 162/76 H 91 11/13/22 05:56 65 11/13/22 08:00 11/13/22 08:00 74 11/13/22 08:00 11/13/22 10:17 11/13/22 07:30 36.4 C L 69 16 150/83 H 92 11/13/22 07:09 84 18 94 11/13/22 06:23 92 Pulse Ox O2 Del Method O2 Del Method O2 Flow Rate O2 Flow Rate 11/13/22 13:54 Nasal Cannula 4 11/13/22 11:41 Nasal Cannula 4 11/13/22 05:56 11/13/22 08:00 Room Air 2 11/13/22 08:00 11/13/22 08:00 96 Nasal Cannula 2 11/13/22 10:17 92 Nasal Cannula 2 11/13/22 07:30 Nasal Cannula 4 11/13/22 07:09 Nasal Cannula 4 11/13/22 06:23 Nasal Cannula 4
[2022-11-13] MEDS: WARFARIN SOD 2.5 MG TAB PO SCH (15:48)
[2022-11-13] MEDS ORDERED: WARFARIN SOD 5 MG TAB PO SCH ×2 (16:00→18:10)
[2022-11-13] MEDS: POT PHOSPHATE MONOBASIC W/ SOD TAB PO SCH ×2 (16:44→22:17)
[2022-11-13] MEDS: FUROSEMIDE 40 MG TAB PO SCH (16:45)
[2022-11-13] MEDS: ATORVASTATIN 40 MG TAB PO SCH (22:21)
[2022-11-13] MEDS: NICOTINE 21 MG/24 HR TDSY TD SCH (22:22)
[2022-11-13] MEDS: LANTUS PER UNIT CHARGE SC SCH (22:40)
[2022-11-13] MEDS: ACETAMINOPHEN 1,000 MG/100 ML VIAL IV PRN (23:31)
[2022-11-14] MEDS: LEVALBUTEROL 1.25MG/0.5ML NEB NEB SCH ×4 (00:11→19:12)
[2022-11-14] MEDS: INSULIN ASPART PER UNIT SC SCH ×5 (04:40→20:24)
[2022-11-14] MEDS: PANTOprazole 40 MG TAB PO SCH (06:10)
[2022-11-14] MEDS: ALBUT/IPRATROP 3MG/0.5MG NEB 3 ML VIAL INH PRN (06:57)
[2022-11-14 07:48] LABS: Hematocrit (blood only) 40.1 % (42.0-52.0); Hemoglobin 13.5 g/dl (14.0-18.0); Mean Corpuscular Hemoglobin 27.6 pg (25.0-34.0); Mean Corpuscular Hgb Conc 33.7 g/dL (32.0-36.0); Mean Corpuscular Volume 81.8 fL (80.0-100.0); Mean Platelet Volume 9.8 fL (9.4-12.4); Platelet Count 270 K/uL (130-400); RDW Coefficient of Variation 18.3 % (11.5-14.5); RDW Standard Deviation 53.8 fL (36.4-46.3); White Blood Count 14.68 K/ul (4.8-10.8)
[2022-11-14 08:14] LABS: Prothrombin Time 20.9 Seconds (9.0-12.0)
[2022-11-14 08:27] LABS: BUN Creatinine Ratio 20.8 (10-20); Calcium 9.7 mg/dl (8.5-10.1); Creatinine Clr Calc Pharmacy 159.7 ml/min; Est GFR (African American) 104.9 ml/min; Est GFR (Non-African American) 90.5 ml/min; Magnesium 1.9 mg/dl (1.7-2.4); Phosphorus 3.7 mg/dl (2.5-4.9); Potassium 2.9 mmol/L (3.5-5.1)
[2022-11-14] MEDS ORDERED: POTASSIUM CHLORIDE CRTAB 20 MEQ TABCR PO STA (08:50)
[2022-11-14] MEDS: ADVANCED PROBIOTIC 1250 MG CAPSULE PO SCH ×3 (08:55→20:12)
[2022-11-14] MEDS: GABAPENTIN 800 MG TAB PO SCH ×3 (08:55→20:12)
[2022-11-14] MEDS: TAMSULOSIN HCL 0.4 MG CAP PO SCH (08:56)
[2022-11-14] MEDS: FINASTERIDE 5 MG TAB PO SCH (08:56)
[2022-11-14] MEDS: FOLIC ACID 1 MG TAB PO SCH (08:56)
[2022-11-14] MEDS: DULoxetine HCL 60 MG CAP PO SCH (08:56)
[2022-11-14] MEDS: predniSONE 20 MG TAB PO SCH (08:56)
[2022-11-14] MEDS: FUROSEMIDE 40 MG TAB PO SCH ×2 (08:56→16:13)
[2022-11-14] MEDS: MAGNESIUM OXIDE 400 MG TAB PO SCH (08:56)
[2022-11-14] MEDS: FAMOTIDINE 20 MG TAB PO SCH (08:56)
[2022-11-14] MEDS: ASPIRIN 81 MG ECTAB PO SCH (08:56)
[2022-11-14] MEDS: METOPROLOL SUCC 25MG EXT REL TAB PO SCH ×2 (08:57→20:12)
[2022-11-14] MEDS: ISOSORBIDE DINITRATE 10 MG TAB PO SCH (08:57)
[2022-11-14] MEDS: DOXYCYCLINE HYCLATE 100 MG CAP PO SCH ×2 (08:57→20:12)
[2022-11-14] MEDS: POT PHOSPHATE MONOBASIC W/ SOD TAB PO SCH ×2 (08:57→12:30)
[2022-11-14] MEDS: DOCUSATE SODIUM 100 MG CAP PO SCH ×2 (08:57→20:22)
[2022-11-14] MEDS: guaiFENesin 600 MG TABCR PO SCH ×2 (08:57→20:12)
[2022-11-14] MEDS: POTASSIUM CHLORIDE CRTAB 20 MEQ TABCR PO SCH ×2 (08:57→20:22)
[2022-11-14] MEDS: BENZONATATE 100 MG CAPSULE PO PRN ×3 (08:58→20:22)
[2022-11-14] MEDS: POLYETHYLENE (MIRALAX) 17 GM PACK PO SCH (08:58)
[2022-11-14] MEDS: buprenorphine HCL 8 MG SUBL SL SCH ×3 (08:58→20:22)
[2022-11-14] MEDS: CYCLOBENZAPRINE HCL 10 MG TAB PO PRN ×2 (08:58→20:22)
[2022-11-14] MEDS: DICLOFENAC SOD 1% GEL 100 GM TUBE EXT SCH ×2 (08:59→20:22)
[2022-11-14] MEDS: FLUTICASONE PROPIONATE NA SPR 16 GM BTL SCH (09:00)
[2022-11-14] MEDS ORDERED: LANTUS PER UNIT CHARGE SC SCH (09:00)
[2022-11-14] MEDS: LORazepam 0.5 MG TAB PO PRN ×2 (09:05→20:22)
[2022-11-14] MEDS: SPIRONOLACTONE 25 MG TAB PO SCH (09:43)
[2022-11-14] MEDS ORDERED: KETOROLAC TROMETHAMINE 15 MG/ML VIAL IV PRN (11:51)
[2022-11-14] MEDS: AMPICILLIN 2,000 MG in SODIUM CHLOR 0.9% AD-VAN 100 ML IV SCH ×2 (13:29→17:39)
--- NOTE | 2022-11-14 16:05 | Hospitalist Progress Note ---
Date of Service November 14, 2022 Assessment & Plan (1) Noncompliance: (2) COPD (chronic obstructive pulmonary disease): Plan (1) Chronic respiratory failure: (2) Acute exacerbation of COPD (chronic obstructive pulmonary disease): Plan: - Possible bronchospasm with wheezing & pt was not wearing O2 upon presenting - Tobacco cessation encouraged - nicotine patch ordered - Still wheezing, c/w prednisone 40 mg daily 11/12; doxy 11/12 - c/w home nebs and prn nebs. cough syrup - incentive spirometer. - at baseline O2 requirement. (3) Syncope: - Follows with [facility] as oupatient, was previously set up to have Zio 2 week home monitor mailed to his house - he hasn't received it in the mail per his report - During last admission No arrhythmias were noted on tele, EKG was reviewed at admission - no acute changes. BP is stable. Appears Euvolemic. - Cardio evaled, recs to dc zaroxylyn. - pt to f/u w/ cards office on dc for zio patch monitoring. - c/w tele monitoring while in hospital. Monitor and replete lytes which were off when he presented. (4) CHF (congestive heart failure): -Most recent echo done on 08/17/2022 showing LVEF of 55 to 60%, mild concentric LVH, right ventricle mildly dilated - Chronic - Strict I/Os to maintain euvolemia - c/w home diures and KCL supplement. DC metolazone per cardio recs due to risk of hypokalemia. (5) Leukocytosis: Plan: - 14 K at admission , improved compared to previously - Concern for underlying infection? Possible that this is pulmonary source as he was wheezing and hypoxic upon arrival to the ER, however was not wearing supplemental O2, here has been weaned down from 5L to 4L at ED. Also could be his urine infection. (6) Chronic indwelling Fontaine catheter/ CAUTI Plan: - UA appears infected however has chronically dirty appearing urine, indwelling fontaine catheter in place because he has refused to have it removed previously despite counseling on it being a source of promoting infection. - Pt with tmax of 37.7 on admission, WBC is 14.08 at admission however this is improved compared to lab trend - Urine Cx w/ enterococcus, will change fontaine and ampicillin 11/14. - f/u final results on urine culture. (7) Chronic anticoagulation: Plan: - INR at goal, 3.7 on arrival, trend with am labs, c/w coumadin per home regimen tomorrow. - Cont follow-up with the coagulation clinic - Takes 5 mg Wednesday, and 2.5 mg all other days (8) Hypokalemia: 2.7 at admission; monitor and replete. DC'd metolazone. (9) Hypomagnesemia: monitor and replete. (10) 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: - ISS with accuchecks achs - Hold glipizide - Cont Lantus 50 U QHS --- pt has drank a full can of regular cola in the ER. Pt is irritable when asked to drink diet. (11) Morbid obesity: - BMI of 58.3, diet and exercises encouraged at bedside (12) Opioid dependence: - continues on buprenorphine therapy per home regimen. H/O abuse. - Cont scheduled Miralax. Encourage ambulation as tolerated with assistance. - Will not be given any narcotics pain medication - Will hold iron supplementation as pt reports constipation and this can add to that (13) Tobacco abuse disorder: - Cessation encouraged, pt refuses to quit, nicotine patch prn (14) Noncompliance: Chronic DVT ppx: cont coumadin CODE: Full code Admission and Anticipated Discharge Date Admission Date: November 12, 2022 Subjective Patient seen and examined at bedside as a follow-up of COPD exacerbation and leukocytosis and concern of urinary infection on the background of indwelling Fontaine catheter and syncope. Patient was lying in bed, not on O2, reports no new acute event overnight, reports eating okay, reports having large BM yesterday. Continue w/ bowel regime due to chronic opioid use. Reports his generalized pain is not controlled w/ po tylenol and would like iv tylenol for the same. 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 Pt counselled regarding various s/e that comes w/ residential steroid use and should rather follow up with his pulm doctor and likely should get PFT once out of acute stage. Pt seems to understand but only time will tell how much he adheres to my counselling. Telemetery review w/ sinus rhythm overnight and in AM. Physical Exam Physical Exam: GENERAL: Alert and oriented x3. NAD, on RA, morbidly obese. HEENT: No pallor, no icterus. Pupils equal, round and reactive to light. Oral mucosa moist. NECK: No JVD, no neck masses. HEART: S1 and S2 heard. Regular rate and rhythm. No murmur, no gallop. RESPIRATORY SYSTEM: Normal AP diameter. No accessory muscle use. + wheezing - improving, no crackles. ABDOMEN: Soft, bowel sounds present, nontender, no distention. CENTRAL NERVOUS SYSTEM: No facial droop. Speech is clear. Obeys simple commands. Moves extremities. EXTREMITIES: trace edema, ble chronic skin changes noted, no erythema seen. Results & Data Results & Data ([facility]) Vital Signs (Past 12 Hours) Vital Signs Temp Pulse Pulse Resp BP Pulse Ox O2 Del Method 11/14/22 14:23 91 11/14/22 13:07 86 18 97 Nasal Cannula 11/14/22 11:28 36.5 C 76 20 127/70 94 Room Air 11/14/22 10:17 Nasal Cannula 11/14/22 08:00 36.6 C 66 18 124/76 96 Nasal Cannula 11/14/22 07:26 60 11/14/22 06:59 77 18 95 Nasal Cannula O2 Flow Rate 11/14/22 14:23 11/14/22 13:07 4 11/14/22 11:28 11/14/22 10:17 4 11/14/22 08:00 4 11/14/22 07:26 11/14/22 06:59 4
[2022-11-14] MEDS: guaiFENesin/DEXTROM SYRUP 100MG/10MG 5ML UDC PO PRN (16:13)
[2022-11-14] MEDS: WARFARIN SOD 2.5 MG TAB PO SCH (16:13)
[2022-11-14 17:10] LABS: Influenza A virus by PCR Negative (Negative); Influenza B virus by PCR Negative (Negative); RSV by PCR Negative (Negative)
[2022-11-14] MEDS: NICOTINE 21 MG/24 HR TDSY TD SCH (20:12)
[2022-11-14] MEDS: ATORVASTATIN 40 MG TAB PO SCH (20:12)
[2022-11-14] MEDS: MAGNESIUM SULFATE / D5W 1 GM/100 ML BAG IV SCH ×2 (20:23→22:55)
[2022-11-14] MEDS: ACETAMINOPHEN 1,000 MG/100 ML VIAL IV PRN (20:23)
[2022-11-14] MEDS: LANTUS PER UNIT CHARGE SC SCH (20:24)
[2022-11-14 20:53] LABS: Base Excess ABG 15.6 mEq/L (-9-1.8); HCO3 ABG 41 mmol/L (19-24); Oxygen Saturation ABG 96.8 % (90-95); PCO2 ABG 53 mmHg (35-46); PO2 ABG 76 mmHg (80-95)
[2022-11-14 21:01] LABS: Allen Test POS (Pos)
[2022-11-14] MEDS: LEVALBUTEROL HCL 1.25 MG/3 ML NEB NEB SCH (22:42)
[2022-11-15] MEDS: AMPICILLIN 2,000 MG in SODIUM CHLOR 0.9% AD-VAN 100 ML IV SCH ×3 (01:21→11:55)
[2022-11-15] MEDS: INSULIN ASPART PER UNIT SC SCH ×3 (01:26→11:55)
[2022-11-15] MEDS: LEVALBUTEROL HCL 1.25 MG/3 ML NEB NEB SCH ×3 (03:23→12:26)
[2022-11-15] MEDS: PANTOprazole 40 MG TAB PO SCH (05:41)
[2022-11-15] MEDS: ALBUT/IPRATROP 3MG/0.5MG NEB 3 ML VIAL INH PRN ×2 (07:00→10:45)
[2022-11-15 07:35] LABS: Hematocrit (blood only) 40.3 % (42.0-52.0); Hemoglobin 13.1 g/dl (14.0-18.0); Mean Corpuscular Hemoglobin 27.5 pg (25.0-34.0); Mean Corpuscular Hgb Conc 32.5 g/dL (32.0-36.0); Mean Corpuscular Volume 84.5 fL (80.0-100.0); Mean Platelet Volume 9.8 fL (9.4-12.4); Nucleated RBC # (auto) 0.02 K/uL (0-0.12); Nucleated RBC % (auto) 0.1 %; Platelet Count 279 K/uL (130-400); RDW Coefficient of Variation 18.6 % (11.5-14.5); RDW Standard Deviation 56.4 fL (36.4-46.3); Red Blood Count 4.77 M/uL (4.70-6.10); White Blood Count 14.47 K/ul (4.8-10.8)
[2022-11-15 07:57] LABS: Prothrombin Time 20.5 Seconds (9.0-12.0)
[2022-11-15 08:07] LABS: BUN Creatinine Ratio 23.5 (10-20); Calcium 9.6 mg/dl (8.5-10.1); Creatinine Clr Calc Pharmacy 152.9 ml/min; Est GFR (African American) 97.5 ml/min; Est GFR (Non-African American) 84.1 ml/min; Magnesium 2.2 mg/dl (1.7-2.4); Potassium 3.1 mmol/L (3.5-5.1)
[2022-11-15] MEDS: POLYETHYLENE (MIRALAX) 17 GM PACK PO SCH (08:34)
[2022-11-15] MEDS: BENZONATATE 100 MG CAPSULE PO PRN (08:34)
[2022-11-15] MEDS: LORazepam 0.5 MG TAB PO PRN (08:34)
[2022-11-15] MEDS: buprenorphine HCL 8 MG SUBL SL SCH ×2 (08:34→12:56)
[2022-11-15] MEDS: POTASSIUM CHLORIDE CRTAB 20 MEQ TABCR PO SCH (08:35)
[2022-11-15] MEDS: guaiFENesin 600 MG TABCR PO SCH (08:35)
[2022-11-15] MEDS: DOCUSATE SODIUM 100 MG CAP PO SCH (08:35)
[2022-11-15] MEDS: CYCLOBENZAPRINE HCL 10 MG TAB PO PRN (08:35)
[2022-11-15] MEDS: ADVANCED PROBIOTIC 1250 MG CAPSULE PO SCH ×2 (08:35→12:57)
[2022-11-15] MEDS: DOXYCYCLINE HYCLATE 100 MG CAP PO SCH (08:35)
[2022-11-15] MEDS: GABAPENTIN 800 MG TAB PO SCH ×2 (08:36→12:57)
[2022-11-15] MEDS: predniSONE 20 MG TAB PO SCH (08:36)
[2022-11-15] MEDS: TAMSULOSIN HCL 0.4 MG CAP PO SCH (08:36)
[2022-11-15] MEDS: FOLIC ACID 1 MG TAB PO SCH (08:36)
[2022-11-15] MEDS: FAMOTIDINE 20 MG TAB PO SCH (08:36)
[2022-11-15] MEDS: FUROSEMIDE 40 MG TAB PO SCH (08:36)
[2022-11-15] MEDS: ASPIRIN 81 MG ECTAB PO SCH (08:36)
[2022-11-15] MEDS: METOPROLOL SUCC 25MG EXT REL TAB PO SCH (08:36)
[2022-11-15] MEDS: DULoxetine HCL 60 MG CAP PO SCH (08:37)
[2022-11-15] MEDS: SPIRONOLACTONE 25 MG TAB PO SCH (08:37)
[2022-11-15] MEDS: MAGNESIUM OXIDE 400 MG TAB PO SCH (08:37)
[2022-11-15] MEDS: ISOSORBIDE DINITRATE 10 MG TAB PO SCH (08:37)
[2022-11-15] MEDS: FINASTERIDE 5 MG TAB PO SCH (08:37)
[2022-11-15] MEDS: FLUTICASONE PROPIONATE NA SPR 16 GM BTL SCH (08:38)
[2022-11-15] MEDS: DICLOFENAC SOD 1% GEL 100 GM TUBE EXT SCH (08:38)
[2022-11-15] MEDS ORDERED: POTASSIUM CHLORIDE CRTAB 20 MEQ TABCR PO STA (08:51)
--- NOTE | 2022-11-15 08:53 | XRay Report ---
XR chest 1V portable HISTORY: wheezing COMPARISON: Chest 11/12/2022. FINDINGS: No pneumothorax. There are low lung volumes. The cardiac silhouette remains top normal in s ize. There is mild diffuse interstitial thickening, unchanged. Bibasilar linear densities favor subse gmental atelectasis. No new focal lung consolidations to suggest a pneumonia. IMPRESSION: No significant change compared to the prior study. No acute process. Bibasilar linear densities persi st and favor subsegmental atelectasis. ACT 112: Negative or not required by law. Electronically signed by: Vidal Keller M.D. 11/15/2022 8:52 AM
[2022-11-15] MEDS ORDERED: LANTUS PER UNIT CHARGE SQ SCH (09:00)
[2022-11-15] MEDS: guaiFENesin/DEXTROM SYRUP 100MG/10MG 5ML UDC PO PRN (09:15)
--- NOTE | 2022-11-15 11:12 | Pharmacy Report ---
Pharmacy Glycemic Short Note 2 - Date of Service November 15, 2022 - Glycemic Short BSG Results (Last 24 hours): 11/14/22 11/14/22 11/14/22 11:30 16:24 20:03 Glucose POC Glucose 263 H 92 190 H 11/15/22 11/15/22 11/15/22 01:19 06:23 07:21 Glucose 164 H POC Glucose 252 H 268 H OUTPATIENT ANTIDIABETIC REGIMEN: * Lantus 50 units SQ HS * Novolog SQ TID meals per scale * Glipizide 10 mg PO BID ASSESSMENT: 11/15: * Patient received total of 204 units of insulin yesterday; 70 units of basal + 134 units bolus. * Sugars trended down to 92 mg/dl at dinner time but trended back up again. Midnight check was 252 mg/dl. He received 12 units of Novolog at that time. Fasting BSG was still elevated at 268 mg/dl this morning. * Lantus dosing increased to 35 units in the morning (based of what he received overnight yesterday) and HS dose increased by 10 units. * Novolog carb ratio tightened this morning. 11/13/22: * Stanton presents due to complainants of syncope and worsening shortness of breath. He was started on steroids for treatment of a COPD exacerbation (solu medrol 125 mg IV x 1, then prednisone 40 mg PO daily). He is known to the glycemic service from prior admissions. * Will utilize insulin doses that have worked well for the patient in the past while on steroids. During an admission earlier this month, he required ~60 units of Lantus per day while on prednisone 20 mg. I suspect he will need > 60 units/day while on current dose of pred 40 mg. Will adjust as needed. PLAN FOR INPATIENT GLYCEMIC CONTROL: * Hold outpatient oral diabetes medications * Basal insulin * Lantus 35 units SQ QAM * Lantus 60 units SQ qHS * Bolus insulin * NovoLog per scale ACHS or Q6hrs while NPO * Goal Range: Low 110 mg/dL - High 140 mg/dL * Correction Factor: 7 mg/dL/unit * Nutritional / Prandial insulin per carb ratio of 1 unit per 2.5 grams CHO consumed
--- NOTE | 2022-11-15 12:38 | Discharge Summary ---
Date of Service November 15, 2022 Admission HPI Per Admitting Provider This is a 52-year-old male with multiple hospital admissions recently was here from 10/26/2022 to 10/29/2022 for syncope and collapse. Other past medical history includes significant noncompliance, chronic opioid abuse, indwelling Fontaine which he has been unwilling to have removed, chronic systolic CHF, HTN, HLD, hypomagnesemia, DM type 2 insulin-dependent, COPD, morbid obesity, depression with anxiety, on chronic anticoagulation, tobacco abuse who presents to the ER with respiratory symptoms. Pt notes for the past 3 days he has had several episodes of feeling like he is going to pass out, and is able to sit down before it happens. He had one episode of complete syncope where he fell down to the ground but denies hitting his head. He also reports having a twitching issue with his hands and feet where his hand all of a sudden moves and is holding a cigarette, soda or something and it flies out of his hand. He was supposed to have had a Zio patch mailed to his house since when he was discharged from his most recent hospitalization, however has not gotten it yet and is very frustrated as to why the hospital cannot just give it to him before he leaves here. He uses oxygen 4 L at bedtime, none during the day. Pt has a chronic cough, and admits feeling increasinly short of breath in the past 3 days. He occasionally has been coughing up mucous. He occasionally feels like its hard to breath, but has not used O2 during the day. He is using rescue inhaler daily, as well as smoking his 1 ppd of cigarettes. He is drinking fluids and taking his normal medications which his , Toña, manages for him. Reports he cannot remember last time he had a bowel movement and takes stool softeners, he does not know the last time his fontaine catheter was changed. Admission Exam Per Admitting Provider General: Obese man in no distress Eyes: PERRL, conjunctivae normal, not pale, anicteric sclerae, EOM intact bilaterally ENMT: External ear and nose normal, oropharynx normal Respiratory: Normal respiratory effort, on nasal cannula, prolonged expiratory phase with expiratory rhonchi Cardiovascular: RRR S1 S2 Gastrointestinal (Abdomen): Abdomen is not distended, soft, non-tender to palpation, no guarding, no palpable hepatosplenomegaly, normal bowel sounds Musculoskeletal: Chronic pedal edema with stasis changes Genitourinary: No CVA tenderness Neurologic: Alert and oriented x 3, No focal weakness, sensation grossly intact Psychiatric: Euthymic affect Principal Diagnosis Chronic respiratory failure Acute exacerbation of COPD Electrolyte abnormalities Near syncope Discharge Exam GENERAL: Alert and oriented x3. NAD, on RA, morbidly obese. HEENT: No pallor, no icterus. Pupils equal, round and reactive to light. Oral mucosa moist. NECK: No JVD, no neck masses. HEART: S1 and S2 heard. Regular rate and rhythm. No murmur, no gallop. RESPIRATORY SYSTEM: Normal AP diameter. No accessory muscle use. + wheezing - improving good, no crackles. ABDOMEN: Soft, bowel sounds present, nontender, no distention. CENTRAL NERVOUS SYSTEM: No facial droop. Speech is clear. Obeys simple commands. Moves extremities. EXTREMITIES: trace edema, ble chronic skin changes noted, no erythema seen. Discharge Data Allergies Allergy/AdvReac Type Severity Reaction Status Date / Time cefepime Allergy Intermediate rash Verified 11/12/22 15:29 daptomycin Allergy Intermediate rash Verified 11/12/22 15:29 fentanyl Allergy Intermediate RASH/HIVES/SKIN Verified 11/12/22 15:29 REDNESS naloxone AdvReac Severe extremely Verified 11/12/22 15:29 sick acetaminophen [From Tylenol] AdvReac Intermediate IRRITATES Verified 11/12/22 15:29 & UPSET STOMACH ibuprofen AdvReac Intermediate Nausea Verified 11/12/22 15:29 valproic acid AdvReac Intermediate PANCREATITS Verified 11/12/22 15:29 Consultations 11/12/22 15:17 ED Decision to Admit Stat 11/12/22 18:10 Consult Cardiology Routine Hospital Course (1) Noncompliance: (2) COPD (chronic obstructive pulmonary disease): Plan 52 yo M was managed for the following: (1) Chronic respiratory failure: (2) Acute exacerbation of COPD (chronic obstructive pulmonary disease): Plan: - Possible bronchospasm with wheezing & pt was not wearing O2 upon presenting - Tobacco cessation encouraged - pt seems not interested. - Wheezing has improved, c/w prednisone 40 mg daily 11/12; doxy 11/12 --tapering dose of prednisone on DC - Admitting sputum Cx reviewed. - Doxy and Augmentin on DC. - c/w home nebs and prn nebs. cough syrup - incentive spirometer. - at baseline O2 requirement. (3) Syncope: - Follows with [facility] as oupatient, was previously set up to have Zio 2 week home monitor mailed to his house - he hasn't received it in the mail per his report - During last admission No arrhythmias were noted on tele, EKG was reviewed at admission - no acute changes. BP is stable. Appears Euvolemic. - Cardio evaled, recs to dc zaroxylyn. - pt to f/u w/ cards office on dc for zio patch monitoring. Pt aware. - KCL increased to 40 meq bid, pt to f/u pcp and get blood test cmp in cordination w/ pcp office in 3 days time. pt aware. (4) CHF (congestive heart failure): -Most recent echo done on 08/17/2022 showing LVEF of 55 to 60%, mild concentric LVH, right ventricle mildly dilated - Chronic - Strict I/Os to maintain euvolemia - c/w home diures and KCL supplement. DC metolazone per cardio recs due to risk of hypokalemia. (5) Leukocytosis: Plan: - 14 K at admission , improved compared to previously - Concern for underlying infection? Possible that this is pulmonary source as he was wheezing and hypoxic upon arrival to the ER, however was not wearing supplemental O2, here has been weaned down from 5L to 4L at ED. Also could be his urine infection. (6) Chronic indwelling Fontaine catheter/ CAUTI Plan: - UA appears infected however has chronically dirty appearing urine, indwelling fontaine catheter in place because he has refused to have it removed previously despite counseling on it being a source of promoting infection. - Pt with tmax of 37.7 on admission, WBC is 14.08 at admission however this is improved compared to lab trend - Urine Cx w/ enterococcus, ampicillin 11/14 to Augmentin on DC. - f/u final results on urine culture. (7) Chronic anticoagulation: Plan: - INR at goal, 3.7 on arrival, trend with am labs, c/w coumadin per home regimen tomorrow. - Cont follow-up with the coagulation clinic - Takes 5 mg Wednesday, and 2.5 mg all other days (8) Hypokalemia: 2.7 at admission; monitor and replete. DC'd metolazone. KCL increased to 40 meq bid. (9) Hypomagnesemia: monitor and replete. resolved. (10) 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: - ISS with accuchecks achs - Hold glipizide - Cont Lantus 50 U QHS --- pt has drank a full can of regular cola in the ER. Pt is irritable when asked to drink diet. (11) Morbid obesity: - BMI of 58.3, diet and exercises encouraged at bedside (12) Opioid dependence: - continues on buprenorphine therapy per home regimen. H/O abuse. - Cont scheduled Miralax. Encourage ambulation as tolerated with assistance. - Will not be given any narcotics pain medication - Will hold iron supplementation as pt reports constipation and this can add to that (13) Tobacco abuse disorder: - Cessation encouraged, pt refuses to quit, nicotine patch prn (14) Noncompliance: Chronic DVT ppx: cont coumadin CODE: Full code Patient being discharged home with following instruction at the point of discharge: Follow-up with your primary care physician within a week time and likely you will need labs CBC/CMP/magnesium/phosphorus. Your potassium supplement will be increased to 40 meq twice a day on discharge, please call you primary care office to set up CMP test in 3 days upon Discharge. Your metolazone has been stopped after cardiology evaluation. Establish and follow-up with pulmonology doctor and likely you will need lung function test in 6 weeks time. For your exacerbation of COPD, I strongly recommend against using any tobacco products/smoking. You will be discharged on tapering dose of steroid. For your UTI and lung infection, you are being discharged on antibiotic. Complete the course. Follow-up with your cardiology and urology as prior. Follow-up with your cardiology office for your Zio patch monitoring. Take your medications as prescribed. Home Health Attestation I certify that this patient is under my care and that I, or a physicians assistant track coach working with me, had a face to-face encounter that meets the home health [id number] encounter requirements with this patient. The encounter with the patient was in whole, or in part, for the following medical condition, which is the primary reason for home health care (list medical condition): I certify that, based on my findings, the following services are medically necessary home health services: My clinical findings support the need for the above services because: Further, I certify that my clinical findings support that this patient is homebound (i.e. absences from home require considerable and taxing effort and are for medical reasons or adventism services or infrequently or of short duration when for other reasons) because: Certification for Home Health Services: Based on the above findings, I certify that this patient is confined to the home and needs intermittent mcc care, physical therapy and/or speech therapy or continues to need occupational therapy. The patient is under my care, and I have initiated the establishment of the plan of care. This patient will be followed by a physician who will periodically review the plan of care. Total Time Total Time Spent Total Time Spent (In Minutes): 55 Discharge Plan Discharge Items Patient Disposition: Home - Self-Care Reason For Visit: SYNCOPAL EPISODE Discharge Diagnosis: Chronic respiratory failure Acute exacerbation of COPD Electrolyte abnormalities Near syncope Activity: Resume your previous activity Non-emergency contact: Primary Care Provider Call non-emergency contact if: you have any medication questions, your symptoms worsen and your temperature is above 101 Follow-up/Referrals: Roberto Askew MD [Primary Care Provider] - Diet: Heart Healthy and Low Sodium (2gm) Fluids: 1800ml (7 cups) Addtl Attending Provider Instructions: Follow-up with your primary care physician within a week time and likely you will need labs CBC/CMP/magnesium/phosphorus. Your potassium supplement will be increased to 40 meq twice a day on discharge, please call you primary care office to set up CMP test in 3 days upon Discharge. Your metolazone has been stopped after cardiology evaluation. Establish and follow-up with pulmonology doctor and likely you will need lung function test in 6 weeks time. For your exacerbation of COPD, I strongly recommend against using any tobacco products/smoking. You will be discharged on tapering dose of steroid. For your UTI and lung infection, you are being discharged on antibiotic. Complete the course. Follow-up with your cardiology and urology as prior. Follow-up with your cardiology office for your Zio patch monitoring. Take your medications as prescribed. Pending Studies at Discharge: Yes (final results on sputum culture. ) Stand-Alone Forms: My [facility], Smoking Cessation Medications and DC Order Prescriptions: New amoxicillin-pot clavulanate 875-125 mg Tablet 1 tab PO BIDM 7 Days Qty: 14 0RF doxycycline hyclate 100 mg Capsule 100 mg PO BID 5 Days Qty: 10 0RF prednisone 20 mg Tablet See Rx Instructions .ROUTE .COMPLEX 7 Days Qty: 10 0RF Rx Instructions: Take 40 mg daily for 3 days followed by 20 mg daily for next 4 days and stop. dextromethorphan-guaifenesin 10-100 mg/5 mL Syrup 5 ml PO Q6H PRN (Reason: cough) Qty: 500 0RF Continued tamsulosin [Flomax] 0.4 mg capsule 0.8 mg PO QAM Qty: 180 3RF polyethylene glycol 3350 [Miralax] 17 gram powder in packet 17 g PO QAM nitroglycerin [Nitrostat] 0.4 mg tablet, sublingual 0.4 mg Sublingual DIRECTED PRN (Reason: CHEST PAIN) Rx Instructions: PLACE ONE TABLET UNDER THE TONGUE EVERY 5 MINUTES FOR UP TO 3 DOSES OVER 15 MINUTES IF NEEDED FOR CHEST PAIN nystatin 100,000 unit/gram Powder 1 applic TOPICAL TID PRN (Reason: Skin Irritation) Rx Instructions: APPLY DIRECTED TO ABDOMINAL FOLDS cyclobenzaprine 10 mg Tablet 10 mg PO BID PRN (Reason: Muscle Spasm) ipratropium-albuterol 0.5 mg-3 mg(2.5 mg base)/3 mL Solution For Nebulization 3 ml INHALATION Q6H PRN (Reason: Shortness Of Breath Or Wheezing) docusate sodium 100 mg Capsule 100 mg PO BID duloxetine 60 mg capsule,delayed release(DR/EC) 60 mg PO DAILY famotidine 20 mg tablet 20 mg PO DAILY fluticasone propionate 50 mcg/actuation spray,suspension 2 spray Intranasal DAILY aspirin [Ecotrin Low Strength] 81 mg tablet,delayed release (DR/EC) 81 mg PO QAM finasteride 5 mg tablet 5 mg PO QAM metoprolol succinate 50 mg Tablet Extended Release 24 Hr 75 mg PO BID spironolactone 25 mg Tablet 25 mg PO QAM atorvastatin 80 mg tablet 80 mg PO QPM Rx Instructions: TAKE THIS MEDICATION EVERY AFTERNOON sennosides [senna] 8.6 mg Tablet 8.6 mg PO DAILY PRN (Reason: Constipation) folic acid 1 mg Tablet 1 mg PO QAM furosemide [Lasix] 40 mg tablet 40 mg PO BID albuterol sulfate 90 mcg/actuation Hfa Aerosol Inhaler 2 puff INHALATION Q4 PRN (Reason: Dyspnea) omeprazole 20 mg Capsule,Delayed Release(Dr/Ec) 20 mg PO DAILYBB gabapentin 800 mg tablet 800 mg PO TID buprenorphine HCl 8 mg tablet, sublingual 8 mg SUBLINGUAL TID Rx Instructions: Per Dr 1st glipizide 10 mg tablet 10 mg PO BID urea [Ureacin-20] 20 % Cream 1 applic TOPICAL BID magnesium oxide 400 mg (241.3 mg magnesium) tablet 400 mg PO DAILY ferrous sulfate 325 mg (65 mg iron) Tablet 325 mg PO QAM Rx Instructions: Take with breakfast hydroxyzine HCl 25 mg Tablet 25 mg PO QID PRN (Reason: Anxiety) ondansetron HCl 4 mg Tablet 4 mg PO Q8H PRN (Reason: NAUSEA/VOMITING) benzonatate 100 mg Capsule 100 mg PO TID PRN (Reason: cough) Qty: 10 0RF diclofenac sodium [Voltaren Arthritis Pain] 1 % Gel 2 g EXT BID Qty: 50 0RF Lactinex 1 million cell tablet,chewable 1 tab PO TID Qty: 30 0RF isosorbide dinitrate 30 mg tablet 30 mg PO DAILY warfarin 5 mg tablet See Rx Instructions .ROUTE .COMPLEX Rx Instructions: 2.5 - 5 mg orally ;take 5 mg in the evening every wednesday and take 2.5 mg every other evening of the week guaifenesin [Mucinex] 600 mg Tablet Extended Release 12hr 1,200 mg PO BID lorazepam 0.5 mg tablet 0.5 mg PO Q8 PRN (Reason: Anxiety) Qty: 6 0RF insulin aspart U-100 [Novolog FlexPen U-100 Insulin] 100 unit/mL (3 mL) Insulin Pen 1 unit SUBCUT TIDM Qty: 30 0RF Rx Instructions: inject 1 unit uner the skin three times a day with meals. units as per sliding scale as instructed by provider to cover for steroid coverage when warranted insulin glargine [Lantus Solostar U-100 Insulin] 100 unit/mL (3 mL) Insulin Pen 50 unit SC HS 30 Days Qty: 15 0RF Stiolto Respimat 2.5-2.5 mcg/actuation mist 2 puff inhalation DAILY Qty: 4 0RF Changed potassium chloride 20 mEq tablet extended release 40 meq PO BID Qty: 60 0RF Discontinued metolazone 2.5 mg tablet 2.5 mg PO [id number] Rx Instructions: take 1 tab 3x a week (mon/wed/fri) Discharge Orders: Discharge Order (Routine); Ordered 11/15/22 Ordered By: Henrietta Gomez Admission Data Admit Date/Time: 11/12/22 15:56 Attending Provider: Henrietta Gomez Admit Provider: Winnie Lara I. Primary Care Provider: Roberto Askew Other Providers: Winnie Lara I. ; Yvon Del Valle Other Interventions: Discharge Summary Assessment (RN) Last Done: 11/15/22 12:27
[2022-11-15] MEDS ORDERED: DOXYCYCLINE HYCLATE 100 MG CAP PO SCH (13:00)
[2022-11-15] MEDS ORDERED: predniSONE 20 MG TAB PO SCH (13:00)
[2022-11-15] MEDS ORDERED: AMOXICILLIN/CLAVULANATE 875 MG TAB PO SCH ×2 (13:00→17:00)
[2022-11-15] MEDS ORDERED: POTASSIUM CHLORIDE CRTAB 20 MEQ TABCR PO SCH (14:00)
[2022-11-15] MEDS ORDERED: LANTUS PER UNIT CHARGE SC SCH (21:00)
[2022-11-16] MEDS ORDERED: WARFARIN SOD 5 MG TAB PO SCH ×2 (16:00)
== END 2022-11-15 13:38 | disposition home or self-care (01) | DRG 191 ==
LOC: ED 12:56 → 2N 15:56 → SUATTDRO 15:56 → 2N 17:53 → 2W 11-13 21:46

== ENCOUNTER 2022-11-23 13:20 | Observation (INO) ==
[2022-11-23] MEDS ORDERED: ONDANSETRON INJ 2 MG/ML 2 ML VIAL IV STA (13:49)
[2022-11-23] MEDS ORDERED: ASPIRIN CHEW 324 MG PO STA (13:49)
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
--- NOTE | 2022-11-23 14:24 | XRay Report ---
XR chest 1V portable CLINICAL HISTORY: Chest pain, nonspecific TECHNIQUE: Single frontal radiograph of the chest was obtained. Comparison: Comparison is made to chest radiograph 11/18/2022 FINDINGS: Exam is limited by underpenetration. The cardiomediastinal silhouette is normal. The lungs are clear. No evidence of pleural effusion or pneumothorax. IMPRESSION: Limited exam without evidence of acute abnormality. ACT 112: Negative or not required by law. Electronically signed by: Armand Tobar M.D. 11/23/2022 2:23 PM
[2022-11-23 15:07] LABS: Hematocrit (blood only) 47.4 % (42.0-52.0); Hemoglobin 15.7 g/dl (14.0-18.0); Mean Corpuscular Hemoglobin 27.7 pg (25.0-34.0); Mean Corpuscular Hgb Conc 33.1 g/dL (32.0-36.0); Mean Corpuscular Volume 83.7 fL (80.0-100.0); Mean Platelet Volume 10.7 fL (9.4-12.4); Platelet Count 386 K/uL (130-400); RDW Coefficient of Variation 18.5 % (11.5-14.5); RDW Standard Deviation 54.2 fL (36.4-46.3); Red Blood Count 5.66 M/uL (4.70-6.10)
[2022-11-23 15:11] LABS: Appearance Urine Clear (Clear); Bacteria Urine Automated Negative (Negative); Bilirubin Urine Negative (Negative); Blood Urine 2+ (Negative); Color Urine Yellow; Epithelial Cell Urine Auto 20-30 /lpf (0-5); Glucose Urine UA Negative (Negative); Ketones Urine Negative (Negative); Leukocyte Esterase Urine Trace (Negative); Nitrite Urine Negative (Negative); Protein Urine Negative (Negative); Specific Gravity Urine 1.013 (1.000-1.030); Urobilinogen Urine Negative (Negative)
[2022-11-23 15:23] LABS: Albumin Globulin Ratio 1.1 (0.9-2); Albumin Level 3.9 gm/dl (3.4-5.0); BUN Creatinine Ratio 20.4 (10-20); Bilirubin,Total 0.6 mg/dl (0.2-1.0); Calcium 10.2 mg/dl (8.5-10.1); Creatinine Clr Calc Pharmacy 153.9 ml/min; Est GFR (African American) 102.3 ml/min; Est GFR (Non-African American) 88.3 ml/min; Globulin 3.5 gm/dl (2.5-4.0); Potassium 2.9 mmol/L (3.5-5.1); Total Protein 7.4 gm/dl (6.0-8.3)
[2022-11-23 15:27] LABS: Basophils # (auto) 0.13 K/uL (0-0.2); Basophils % (auto) 0.5 %; Eosinophils # (auto) 0.04 K/uL (0-0.50); Eosinophils % (auto) 0.1 %; Immature Granulocytes # (auto) 0.33 K/uL (0.01-0.20); Immature Granulocytes % (auto) 1.2 %; Lymphocytes # (auto) 5.95 K/uL (1.2-3.4); Monocytes # (auto) 1.68 K/uL (0.11-0.59); Monocytes % (auto) 6.2 %; Neutrophils # (auto) 18.87 K/uL (1.40-6.50)
[2022-11-23] MEDS ORDERED: POTASSIUM CHLORIDE CRTAB 20 MEQ TABCR PO STA ×2 (15:27→17:09)
[2022-11-23] MEDS ORDERED: POTASSIUM CHLORIDE / WTR 10 MEQ/100 ML PLCT IV ONE (15:27)
[2022-11-23 15:29] LABS: Troponin I High Sensitivity 5.1 pg/ml (0-20)
[2022-11-23 15:34] LABS: Partial Thromboplastin Ratio 1.1; Prothrombin Time 20.8 Seconds (9.0-12.0)
[2022-11-23] MEDS ORDERED: ACETAMINOPHEN 1,000 MG/100 ML VIAL IV STA (16:01)
[2022-11-23] MEDS ORDERED: NITROGLYCERIN 0.3 MG/1 TAB 100 TAB BTL SL PRN (17:41)
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
[2022-11-23] MEDS ORDERED: SENNA 8.6 MG TAB PO PRN (20:14)
[2022-11-23] MEDS ORDERED: PHARMACY GLYCEMIC MGMT CONSULT PRN (20:14)
[2022-11-23] MEDS ORDERED: GLUCOSE 10 TAB/TUBE PO PRN (20:14)
[2022-11-23] MEDS ORDERED: DEXTROSE 50% 50 ML SYRINGE IV PRN (20:14)
[2022-11-23] MEDS ORDERED: NITROGLYCERIN SL 0.4 MG/TAB TAB SL PRN (20:14)
[2022-11-23] MEDS ORDERED: hydrOXYzine HCl 25 MG TAB PO PRN (20:14)
[2022-11-23] MEDS ORDERED: CARBOHYDRATES FOR HYPOGLYCEMIA PO PRN (20:14)
[2022-11-23] MEDS ORDERED: GLUCOSE 40% GEL 15 GM TUBE PO PRN (20:14)
[2022-11-23] MEDS ORDERED: GLUCAGON FOR INJ 1 MG VIAL SQ PRN (20:14)
[2022-11-23] MEDS ORDERED: ACETAMINOPHEN 325 MG TAB PO PRN (20:14)
[2022-11-23] MEDS: CYCLOBENZAPRINE HCL 10 MG TAB PO PRN (21:12)
[2022-11-23] MEDS: LORazepam 0.5 MG TAB PO PRN (21:12)
[2022-11-23] MEDS: ATORVASTATIN 40 MG TAB PO SCH (21:14)
[2022-11-23] MEDS: METOPROLOL SUCC 25MG EXT REL TAB PO SCH (21:14)
[2022-11-23] MEDS: DOCUSATE SODIUM 100 MG CAP PO SCH (21:15)
[2022-11-23] MEDS: WARFARIN SOD 5 MG TAB PO SCH (21:16)
[2022-11-23] MEDS: POTASSIUM CHLORIDE CRTAB 20 MEQ TABCR PO SCH (21:17)
[2022-11-23] MEDS: ADVANCED PROBIOTIC 1250 MG CAPSULE PO SCH (21:17)
[2022-11-23] MEDS: GABAPENTIN 800 MG TAB PO SCH (21:20)
[2022-11-23] MEDS: guaiFENesin 600 MG TABCR PO SCH (21:20)
[2022-11-23] MEDS: FUROSEMIDE 40 MG TAB PO SCH (21:20)
[2022-11-23] MEDS: DICLOFENAC SOD 1% GEL 100 GM TUBE EXT SCH (21:21)
[2022-11-23] MEDS: LANTUS PER UNIT CHARGE SQ SCH (21:22)
[2022-11-23] MEDS: INSULIN ASPART PER UNIT SC SCH ×2 (21:22→23:59)
[2022-11-23] MEDS: buprenorphine HCL 8 MG SUBL SL SCH (21:28)
[2022-11-24] MEDS ORDERED: ACETAMINOPHEN 1,000 MG/100 ML VIAL IV STA (00:08)
[2022-11-24] MEDS: NICOTINE 21 MG/24 HR TDSY TD SCH ×2 (00:37→08:55)
[2022-11-24] MEDS: INSULIN ASPART PER UNIT SC SCH ×5 (01:04→20:21)
--- NOTE | 2022-11-24 05:40 | Electrocardiogram Report ---
Test Reason : Blood Pressure : / mmHG Vent. Rate : 092 BPM Atrial Rate : 092 BPM P-R Int : 150 ms QRS Dur : 108 ms QT Int : 344 ms P-R-T Axes : 059 052 116 degrees QTc Int : 425 ms Normal sinus rhythm Marked ST abnormality, possible lateral subendocardial injury Abnormal ECG When compared with ECG of 18-NOV-2022 18:01, ST now depressed in Anterior leads T wave inversion now evident in Anterolateral leads Confirmed by Christian Cunningham ([id number]) on 11/24/2022 5:40:43 AM Referred By: Roberto Askew Confirmed By:Christian Cunningham
[2022-11-24] MEDS: ALBUT/IPRATROP 3MG/0.5MG NEB 3 ML VIAL INH PRN ×3 (05:47→23:47)
[2022-11-24] MEDS ORDERED: PANTOprazole 40 MG TAB PO SCH (06:30)
[2022-11-24 06:48] LABS: Hematocrit (blood only) 47.8 % (42.0-52.0); Hemoglobin 15.6 g/dl (14.0-18.0); Mean Corpuscular Hgb Conc 32.6 g/dL (32.0-36.0); Mean Corpuscular Volume 85.7 fL (80.0-100.0); Mean Platelet Volume 10.3 fL (9.4-12.4); Platelet Count 338 K/uL (130-400); RDW Coefficient of Variation 18.6 % (11.5-14.5); RDW Standard Deviation 55.7 fL (36.4-46.3); Red Blood Count 5.58 M/uL (4.70-6.10); White Blood Count 22.28 K/ul (4.8-10.8)
[2022-11-24 07:10] LABS: BUN Creatinine Ratio 21.3 (10-20); Calcium 10.1 mg/dl (8.5-10.1); Creatinine Clr Calc Pharmacy 138.7 ml/min; Est GFR (Non-African American) 78.5 ml/min; Magnesium 1.9 mg/dl (1.7-2.4); Phosphorus 5.1 mg/dl (2.5-4.9); Potassium 2.6 mmol/L (3.5-5.1)
[2022-11-24 07:16] LABS: Troponin I High Sensitivity 4.7 pg/ml (0-20)
[2022-11-24 07:20] LABS: INR 1.8 (0.9-1.1); Prothrombin Time 18.1 Seconds (9.0-12.0)
[2022-11-24] MEDS ORDERED: POTASSIUM CHLORIDE CRTAB 20 MEQ TABCR PO STA (07:37)
[2022-11-24] MEDS: LORazepam 0.5 MG TAB PO PRN ×2 (08:53→20:25)
[2022-11-24] MEDS: guaiFENesin 600 MG TABCR PO SCH (08:53)
[2022-11-24] MEDS: buprenorphine HCL 8 MG SUBL SL SCH ×3 (08:53→20:26)
[2022-11-24] MEDS: CYCLOBENZAPRINE HCL 10 MG TAB PO PRN ×2 (08:53→20:25)
[2022-11-24] MEDS: FUROSEMIDE 40 MG TAB PO SCH ×2 (08:54→20:12)
[2022-11-24] MEDS: FINASTERIDE 5 MG TAB PO SCH (08:54)
[2022-11-24] MEDS: SPIRONOLACTONE 25 MG TAB PO SCH (08:54)
[2022-11-24] MEDS: ASPIRIN 81 MG ECTAB PO SCH (08:54)
[2022-11-24] MEDS: POTASSIUM CHLORIDE CRTAB 20 MEQ TABCR PO SCH ×2 (08:54→20:12)
[2022-11-24] MEDS: METOPROLOL SUCC 25MG EXT REL TAB PO SCH ×2 (08:54→20:09)
[2022-11-24] MEDS: FERROUS SULFATE 325 MG TAB PO SCH (08:55)
[2022-11-24] MEDS: DULoxetine HCL 60 MG CAP PO SCH (08:55)
[2022-11-24] MEDS: PANTOprazole 40 MG TAB PO SCH (08:55)
[2022-11-24] MEDS: MAGNESIUM OXIDE 400 MG TAB PO SCH (08:55)
[2022-11-24] MEDS: FAMOTIDINE 20 MG TAB PO SCH (08:55)
[2022-11-24] MEDS: GABAPENTIN 800 MG TAB PO SCH ×3 (08:56→20:11)
[2022-11-24] MEDS: ISOSORBIDE DINITRATE 10 MG TAB PO SCH (08:56)
[2022-11-24] MEDS: TAMSULOSIN HCL 0.4 MG CAP PO SCH (08:56)
[2022-11-24] MEDS: ADVANCED PROBIOTIC 1250 MG CAPSULE PO SCH ×3 (08:57→20:10)
[2022-11-24] MEDS: POLYETHYLENE (MIRALAX) 17 GM PACK PO SCH (08:57)
[2022-11-24] MEDS: FOLIC ACID 1 MG TAB PO SCH (08:57)
[2022-11-24] MEDS: DOCUSATE SODIUM 100 MG CAP PO SCH ×2 (08:58→20:09)
[2022-11-24] MEDS ORDERED: LANTUS PER UNIT CHARGE SQ ONE (09:00)
--- NOTE | 2022-11-24 09:35 | Electrocardiogram Report ---
Test Reason : Blood Pressure : / mmHG Vent. Rate : 067 BPM Atrial Rate : 067 BPM P-R Int : 150 ms QRS Dur : 106 ms QT Int : 424 ms P-R-T Axes : -06 037 072 degrees QTc Int : 448 ms Normal sinus rhythm Diffuse Nonspecific T wave abnormality Nonspecific ST abnormality Lateral leads Abnormal ECG When compared with ECG of 23-NOV-2022 13:35, ST depression in multiple leads largely resolved (remains laterally) Confirmed by Da Browning ([id number]) on 11/24/2022 9:35:25 AM Referred By: Roberto Askew Confirmed By:Da Browning
[2022-11-24] MEDS: DICLOFENAC SOD 1% GEL 100 GM TUBE EXT SCH ×2 (09:47→20:10)
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
[2022-11-24] MEDS ORDERED: ALBUTEROL HFA 8 GM INHALER INH PRN (13:36)
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
--- NOTE | 2022-11-24 13:50 | Pharmacy Report ---
Pharmacy Glycemic Short Note 2 - Date of Service November 24, 2022 - Glycemic Short BSG Results (Last 24 hours): 11/23/22 11/23/22 11/23/22 14:32 20:13 23:53 Glucose 210 H POC Glucose 112 H 152 H 11/24/22 11/24/22 11/24/22 01:02 05:18 05:34 Glucose POC Glucose 147 H 66 L* 73 11/24/22 11/24/22 11/24/22 06:12 08:08 11:34 Glucose 102 H POC Glucose 215 H 187 H OUTPATIENT ANTIDIABETIC REGIMEN: * Lantus 50 units SQ qHS * Novolog TID with meals * Glipizide 10mg PO BID * HbA1c 7.8% (10/12/22) ASSESSMENT: * Mr Milner is a 52yo diabetic M admitted for syncope. * He is well known to the pharmacy glycemic management service. * BSGs were elevated on admission. Patient ate several large snacks last night at bedtime and received quite a bit of Novolog for coverage. As a result, patient was slightly hypoglycemic this morning (BSG 66). Expect that this was due to insulin-stacking. It is important to cover ONLY carbs when patient snacks like this, and to not correct the BSG each time. These instructions have been added to Novolog. * Will continue to follow and adjust insulin regimen as indicated. PLAN FOR INPATIENT GLYCEMIC CONTROL: * Hold outpatient oral diabetes medications * Basal insulin * Lantus 30 units SQ x1 dose this morning * Lantus per scale this evening * Bolus insulin * NovoLog per scale ACHS or Q6hrs while NPO * Goal Range: Low 110 mg/dL - High 140 mg/dL * Correction Factor: 15 mg/dL/unit * Nutritional / Prandial insulin per carb ratio of 1 unit per 5 grams CHO consumed
[2022-11-24] MEDS: KETOROLAC TROMETHAMINE 15 MG/ML VIAL IV PRN (17:55)
[2022-11-24] MEDS: WARFARIN SOD 2.5 MG TAB PO SCH (17:56)
[2022-11-24] MEDS: guaiFENesin/DEXTROM SYRUP 100MG/10MG 5ML UDC PO PRN (20:08)
[2022-11-24] MEDS: ATORVASTATIN 40 MG TAB PO SCH (20:11)
[2022-11-24] MEDS: LANTUS PER UNIT CHARGE SQ SCH (20:27)
[2022-11-25] MEDS: INSULIN ASPART PER UNIT SC SCH ×5 (01:59→21:00)
[2022-11-25 06:29] LABS: Hematocrit (blood only) 45.4 % (42.0-52.0); Hemoglobin 14.5 g/dl (14.0-18.0); Mean Corpuscular Hemoglobin 27.7 pg (25.0-34.0); Mean Corpuscular Hgb Conc 31.9 g/dL (32.0-36.0); Mean Corpuscular Volume 86.8 fL (80.0-100.0); Mean Platelet Volume 10.4 fL (9.4-12.4); Platelet Count 285 K/uL (130-400); RDW Coefficient of Variation 18.4 % (11.5-14.5); RDW Standard Deviation 57.1 fL (36.4-46.3); Red Blood Count 5.23 M/uL (4.70-6.10); White Blood Count 16.04 K/ul (4.8-10.8)
[2022-11-25 06:56] LABS: BUN Creatinine Ratio 17.9 (10-20); Calcium 9.8 mg/dl (8.5-10.1); Creatinine Clr Calc Pharmacy 129.9 ml/min; Est GFR (African American) 82.6 ml/min; Est GFR (Non-African American) 71.3 ml/min; Magnesium 1.9 mg/dl (1.7-2.4); Phosphorus 3.3 mg/dl (2.5-4.9); Potassium 3.8 mmol/L (3.5-5.1)
[2022-11-25 07:19] LABS: INR 1.9 (0.9-1.1); Prothrombin Time 19.3 Seconds (9.0-12.0)
[2022-11-25] MEDS: POTASSIUM CHLORIDE CRTAB 20 MEQ TABCR PO SCH ×2 (08:53→20:54)
[2022-11-25] MEDS: FERROUS SULFATE 325 MG TAB PO SCH (08:53)
[2022-11-25] MEDS: FUROSEMIDE 40 MG TAB PO SCH ×2 (08:53→20:54)
[2022-11-25] MEDS: PANTOprazole 40 MG TAB PO SCH (08:53)
[2022-11-25] MEDS: TAMSULOSIN HCL 0.4 MG CAP PO SCH (08:53)
[2022-11-25] MEDS: ADVANCED PROBIOTIC 1250 MG CAPSULE PO SCH ×3 (08:54→20:54)
[2022-11-25] MEDS: MAGNESIUM OXIDE 400 MG TAB PO SCH (08:54)
[2022-11-25] MEDS: ISOSORBIDE DINITRATE 10 MG TAB PO SCH (08:54)
[2022-11-25] MEDS: DULoxetine HCL 60 MG CAP PO SCH (08:54)
[2022-11-25] MEDS: FOLIC ACID 1 MG TAB PO SCH (08:54)
[2022-11-25] MEDS: GABAPENTIN 800 MG TAB PO SCH ×3 (08:54→20:55)
[2022-11-25] MEDS: METOPROLOL SUCC 25MG EXT REL TAB PO SCH ×2 (08:54→20:54)
[2022-11-25] MEDS: FAMOTIDINE 20 MG TAB PO SCH (08:55)
[2022-11-25] MEDS: POLYETHYLENE (MIRALAX) 17 GM PACK PO SCH (08:55)
[2022-11-25] MEDS: ASPIRIN 81 MG ECTAB PO SCH (08:55)
[2022-11-25] MEDS: DOCUSATE SODIUM 100 MG CAP PO SCH ×2 (08:55→20:55)
[2022-11-25] MEDS: FINASTERIDE 5 MG TAB PO SCH (08:55)
[2022-11-25] MEDS: SPIRONOLACTONE 25 MG TAB PO SCH (08:55)
[2022-11-25] MEDS: DICLOFENAC SOD 1% GEL 100 GM TUBE EXT SCH ×2 (08:55→20:55)
[2022-11-25] MEDS: NICOTINE 21 MG/24 HR TDSY TD SCH (08:56)
[2022-11-25] MEDS: FLUTICASONE PROPIONATE NA SPR 16 GM BTL SCH (08:57)
[2022-11-25] MEDS ORDERED: LANTUS PER UNIT CHARGE SQ ONE (09:00)
[2022-11-25] MEDS: LORazepam 0.5 MG TAB PO PRN ×2 (09:17→20:53)
[2022-11-25] MEDS: CYCLOBENZAPRINE HCL 10 MG TAB PO PRN ×2 (09:17→20:53)
[2022-11-25] MEDS: buprenorphine HCL 8 MG SUBL SL SCH ×3 (09:18→20:53)
[2022-11-25 09:52] LABS: Appearance Urine Clear (Clear); Bacteria Urine Automated Negative (Negative); Bilirubin Urine Negative (Negative); Blood Urine Trace (Negative); Color Urine Yellow; Glucose Urine UA Negative (Negative); Ketones Urine Negative (Negative); Leukocyte Esterase Urine Negative (Negative); Nitrite Urine Negative (Negative); Protein Urine Negative (Negative); Specific Gravity Urine 1.019 (1.000-1.030); Urobilinogen Urine Negative (Negative)
[2022-11-25] MEDS: ALBUT/IPRATROP 3MG/0.5MG NEB 3 ML VIAL INH PRN (09:58)
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
[2022-11-25] MEDS: WARFARIN SOD 2.5 MG TAB PO SCH (16:22)
[2022-11-25] MEDS ORDERED: PROMETHAZINE HCL 25 MG TAB PO PRN (16:49)
[2022-11-25] MEDS: ATORVASTATIN 40 MG TAB PO SCH (20:55)
[2022-11-25] MEDS: KETOROLAC TROMETHAMINE 15 MG/ML VIAL IV PRN (20:56)
[2022-11-25] MEDS: LANTUS PER UNIT CHARGE SQ SCH (21:00)
[2022-11-25] MEDS ORDERED: METHYLPREDNISOLONE IV STA (21:44)
[2022-11-25] MEDS ORDERED: methylPREDNISolone 10 MG in SYRINGE 0 ML IV STA (21:54)
[2022-11-25] MEDS ORDERED: methylPREDNISolone 10 MG in SYRINGE 0.25 ML IV STA (21:56)
[2022-11-26] MEDS ORDERED: GABAPENTIN 400 MG CAP PO STA (00:40)
--- NOTE | 2022-11-26 06:06 | Electrocardiogram Report ---
Test Reason : Blood Pressure : / mmHG Vent. Rate : 067 BPM Atrial Rate : 067 BPM P-R Int : 166 ms QRS Dur : 098 ms QT Int : 398 ms P-R-T Axes : 096 035 053 degrees QTc Int : 420 ms Poor data quality, interpretation may be adversely affected Normal sinus rhythm Nonspecific ST and T wave abnormality Abnormal ECG When compared with ECG of 24-NOV-2022 05:09, Nonspecific T wave abnormality, improved in Anterior leads Confirmed by Christian Cunningham ([id number]) on 11/26/2022 6:06:25 AM Referred By: Roberto Askew Confirmed By:Christian Cunningham
--- NOTE | 2022-11-26 06:07 | Electrocardiogram Report ---
Test Reason : Blood Pressure : / mmHG Vent. Rate : 066 BPM Atrial Rate : 066 BPM P-R Int : 162 ms QRS Dur : 104 ms QT Int : 396 ms P-R-T Axes : 000 034 054 degrees QTc Int : 415 ms Normal sinus rhythm Nonspecific ST abnormality Abnormal ECG When compared with ECG of 24-NOV-2022 05:09, Nonspecific T wave abnormality, improved in Anterior leads Confirmed by Christian Cunningham ([id number]) on 11/26/2022 6:06:41 AM Referred By: Roberto Askew Confirmed By:Christian Cunningham
[2022-11-26] MEDS: TAMSULOSIN HCL 0.4 MG CAP PO SCH (09:20)
[2022-11-26] MEDS: ASPIRIN 81 MG ECTAB PO SCH (09:20)
[2022-11-26] MEDS: DOCUSATE SODIUM 100 MG CAP PO SCH ×2 (09:21→21:33)
[2022-11-26] MEDS: FERROUS SULFATE 325 MG TAB PO SCH (09:21)
[2022-11-26] MEDS: FOLIC ACID 1 MG TAB PO SCH (09:21)
[2022-11-26] MEDS: NICOTINE 21 MG/24 HR TDSY TD SCH (09:21)
[2022-11-26] MEDS: DULoxetine HCL 60 MG CAP PO SCH (09:21)
[2022-11-26] MEDS: GABAPENTIN 800 MG TAB PO SCH ×3 (09:21→21:26)
[2022-11-26] MEDS: PANTOprazole 40 MG TAB PO SCH (09:21)
[2022-11-26] MEDS: FINASTERIDE 5 MG TAB PO SCH (09:21)
[2022-11-26] MEDS: MAGNESIUM OXIDE 400 MG TAB PO SCH (09:21)
[2022-11-26] MEDS: FAMOTIDINE 20 MG TAB PO SCH (09:21)
[2022-11-26] MEDS: SPIRONOLACTONE 25 MG TAB PO SCH (09:21)
[2022-11-26] MEDS: FUROSEMIDE 40 MG TAB PO SCH ×2 (09:21→21:26)
[2022-11-26] MEDS: METOPROLOL SUCC 25MG EXT REL TAB PO SCH ×2 (09:21→21:26)
[2022-11-26] MEDS: POTASSIUM CHLORIDE CRTAB 20 MEQ TABCR PO SCH ×2 (09:21→21:33)
[2022-11-26] MEDS: POLYETHYLENE (MIRALAX) 17 GM PACK PO SCH (09:22)
[2022-11-26] MEDS: CYCLOBENZAPRINE HCL 10 MG TAB PO PRN ×2 (09:34→21:33)
[2022-11-26] MEDS: LORazepam 0.5 MG TAB PO PRN ×2 (09:34→21:33)
[2022-11-26] MEDS: buprenorphine HCL 8 MG SUBL SL SCH ×3 (09:34→21:33)
[2022-11-26] MEDS: DICLOFENAC SOD 1% GEL 100 GM TUBE EXT SCH ×2 (09:35→21:27)
[2022-11-26] MEDS: FLUTICASONE PROPIONATE NA SPR 16 GM BTL SCH (09:35)
[2022-11-26] MEDS: ISOSORBIDE DINITRATE 10 MG TAB PO SCH (09:36)
[2022-11-26] MEDS: INSULIN ASPART PER UNIT SC SCH ×4 (09:38→21:21)
[2022-11-26] MEDS: LANTUS PER UNIT CHARGE SQ SCH ×2 (09:38→21:22)
[2022-11-26 09:58] LABS: INR 1.8 (0.9-1.1); Prothrombin Time 18.6 Seconds (9.0-12.0)
[2022-11-26 10:03] LABS: BUN Creatinine Ratio 22.6 (10-20); Creatinine Clr Calc Pharmacy 163.8 ml/min; Est GFR (Non-African American) 94.1 ml/min
--- NOTE | 2022-11-26 10:27 | Pharmacy Report ---
Pharmacy Glycemic Short Note 2 - Date of Service November 26, 2022 - Glycemic Short BSG Results (Last 24 hours): 11/25/22 11/25/22 11/25/22 11:44 16:49 20:37 Glucose POC Glucose 142 H 153 H 172 H 11/26/22 11/26/22 08:05 08:46 Glucose 209 H POC Glucose 225 H OUTPATIENT ANTIDIABETIC REGIMEN: * Lantus 50 units SQ qHS * Novolog TID with meals * Glipizide 10mg PO BID * HbA1c 7.8% (10/12/22) ASSESSMENT: 11/26/22: * BSGs have been fairly stable this admission. * Fasting BSG tends to be above goal. Lantus increased today. * No additional changes required at this time. 11/24 * Mr Milner is a 52yo diabetic M admitted for syncope. * He is well known to the pharmacy glycemic management service. * BSGs were elevated on admission. Patient ate several large snacks last night at bedtime and received quite a bit of Novolog for coverage. As a result, patient was slightly hypoglycemic this morning (BSG 66). Expect that this was due to insulin-stacking. It is important to cover ONLY carbs when patient snacks like this, and to not correct the BSG each time. These instructions have been added to Novolog. * Will continue to follow and adjust insulin regimen as indicated. PLAN FOR INPATIENT GLYCEMIC CONTROL: * Hold outpatient oral diabetes medications * Basal insulin * Lantus 30 units SQ BID * Bolus insulin * NovoLog per scale ACHS or Q6hrs while NPO * Goal Range: Low 110 mg/dL - High 140 mg/dL * Correction Factor: 20 mg/dL/unit * Nutritional / Prandial insulin per carb ratio of 1 unit per 5 grams CHO consumed
[2022-11-26] MEDS: ADVANCED PROBIOTIC 1250 MG CAPSULE PO SCH ×3 (11:31→21:26)
--- NOTE | 2022-11-26 12:33 | XRay Report ---
XR ankle RT min 3V routine CLINICAL HISTORY: prev h/o fracture, ankle sprain TECHNIQUE: 3 views of the right ankle were obtained. Comparison: Comparison is made to right foot MRI 05/04/2021 FINDINGS: No acute fractures are present. The joint spaces are well preserved. The ankle mortise is intact. Sof t tissue swelling is seen about the ankle. IMPRESSION: Soft tissue swelling about the ankle without evidence of underlying acute fracture. ACT 112: Negative or not required by law. Electronically signed by: Armand Tobar M.D. 11/26/2022 12:30 PM
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
--- NOTE | 2022-11-26 14:29 | XRay Report ---
RIGHT FOOT 3 VIEWS CLINICAL HISTORY: Right foot injury. FINDINGS: 3 portable views of the right foot are compared to study dated 05/02/2021 and correlated wit h CT of the right foot dated 05/02/2021. The skeletal structures are well-mineralized. There is an acu te fracture through the proximal shaft of the fifth proximal phalanx with overlying soft tissue edema . No additional acute fracture is seen. There is a chronic nonunited fracture through the midshaft of the third metatarsal with surrounding radiodense/metallic foreign bodies. Minimal degenerative garcia e is seen in the foot. There is soft tissue swelling along the dorsal aspect of the foot. IMPRESSION: 1. Acute nondisplaced fracture of the fifth proximal phalanx. 2. There is a chronic nonunited fracture through the mid shaft of the third metatarsal with surroundi ng radiodense/metallic foreign bodies. Electronically signed by: Misael Lopez M.D. 11/26/2022 2:26 PM
[2022-11-26] MEDS: WARFARIN SOD 2.5 MG TAB PO SCH (16:01)
--- NOTE | 2022-11-26 16:24 | Hospitalist Progress Note ---
Date of Service November 26, 2022 Assessment & Plan (1) Chest pain: (2) Syncope: Plan Syncope and collapse Chest pain Hypokalemia Unreliable historian Noncompliant patient Patient reports having several near syncope and about weekly syncope at presentation, this time associated with " horrible horrible chest pain" and "extreme shortness of breath" Follows with [facility] as oupatient, recently used Zio patch for about a week during which time he had several near syncopal events and 1 syncope event per pt. Troponin trends x 4 WNL, EKG at baseline, vitals stable, patient on room air, afebrile. Telemetry monitoring, EKG as needed with chest pain, cardiology consult for chest pain and syncope, pt reports that he had his already mailed zio patch monitor back to his cardiology office. Patient appears euvolemic/slightly hypervolemic, does not appear to have increasing cough or any acute viral illness. Last admission, cardiology evaluated, metolazone was discontinued due to electrolyte abnormalities. Last admission potassium supplement was uptitrated to 40 mEq twice daily, if needed we will continue to uptitrate. potassium wnl today. Will c/w FR 1.8 to 2 L given h/o heart failure. cardio on board - no further recs. Will DG to med/surg today Chronic respiratory failure: On 4 L oxygen at night and as needed. Has many episodes of acute exacerbation of COPD in the past, appears to be not wheezing at admission and not with increased cough. Tobacco cessation encouraged, patient seems not interested. Pt on room air and hemodynamically stable. CHF (congestive heart failure): Most recent echo done on 08/17/2022 showing LVEF of 55 to 60%, mild concentric LVH, right ventricle mildly dilated Chronic Strict I/Os to maintain euvolemia, FR 1.8 to 2L c/w home diures and KCL supplement.DC'd metolazoneper cardio recs last admission Leukocytosis: 27 K at presentation, procalcitonin negative/UA and CXR at his baseline at presentation. Urine in the bag looks clean w/o signs of infection. Likely secondary to recent steroid use on top of his chronic leucocytosis. We will continue to monitor closely for any signs and symptoms of infection. No s/s of infection for now, no indication of antibiotic for now. wbc trending down on its own. follow up on blood culture collected at admission which is negative growth so far. Right foot injury: Worsened foot pain following transfer last evening - obtained R ankle XR with mild edema, consistent with mild ankle sprain. WBAT Ortho evaluated and added foot XR which showed, acute nondisplaced fracture of the fifth proximal phalanx as well as evidence of chronic nonunited fracture of foot Ortho to review images and provide recommendations Caution against additional narcotics given h/o opiate dependence Chronic indwelling Fontaine catheter: Fontaine catheter was changed last admission, UA appears normal. Continue regular Fontaine care. He recently finished course of antibiotic for CAUTI. Chronic anticoagulation: INR at goal at presentation, continue with home Coumadin, takes 5 mg on Wednesday and 2.5 all other days. PT/INR in AM/prn. Coumadin clinic upon discharge. T2DM with insulin deficiency: Sliding scale while in hospital, hold glipizide. Glycemic pharmacy. Morbid obesity: BMI of 57.4, diet and exercise encouraged at bedside counseling Opiate dependence: Continue buprenorphine therapy per home regimen. History of abuse. Continue scheduled MiraLAX and encourage ambulation as tolerated. Do not give any narcotic pain medication. Tobacco use disorder: Cessation encouraged, patient refuses to quit, nicotine patch as needed Noncompliance: Significant and chronic DVT prophylaxis: Continue home Coumadin Full code Dispo: to med/surg, likely dc when able. A total of 50 minutes were spent with greater than 50% of that time face to face with the patient, personally reviewing all current laboratories, imaging studies, past medication reconciliation, outpatient chart review, and discussion with specialists to collaborate care for the patient with attending and utilization of translation services. Please see attending documentation for corrections and/or additions. Admission and Anticipated Discharge Date Admission Date: November 23, 2022 Supervising Physician Co-Signing Physician Notes 52 yo M w/ PMH of noncompliance/unreliable historian, chronic opioid abuse, indwelling fontaine which he has been unwilling to have removed, chronic systolic CHF, HTN, HLD, DM 2, COPD, Morbid obesity, depression w/ anxiety, on chronic anticoagulation and ongoing tobacco abuse who presented 3/6 w/ complain of syncope/collapse a/w chest pain was seen and examined at bedside. Pt had no further complains of any syncope/collapse or chest pain while in hospital. Cardio evaled, appreciate recs. Pt states he twisted Rt ankle on 3 evening and reports having pain around the ankle, ankle XR was obtained w/ no fracture but foot XR w/ acute non displaced fracture of the fifth proximal phalanx. Ortho on board, await, recs. Get Vit D level. On exam, mobidly obese, nad, on 4L NC, occ crackles on lung exam, Rt foot exam - no appreciable redness or swelling but appeared tender to touch w/ decreased ROM at ankle. Rest of the exam as above. I have seen and examined the patient and have discussed the case with the provider above. I agree with the assessment and plan as stated. Subjective 52-year-old was seen and examined at bedside as a follow-up of syncope and collapse, chest pain, and electrolyte abnormalities. Patient states when he was transferring out of chair last evening he put weight on R foot, which has h/o non-united fracture, and rolled his ankle eliciting pain on lateral aspect of ankle. Also endorsing pain near old injury as well. No other new developments overnight. No fever, chills, lightheadedness, CP, SOB, N/V, abdominal pain, diarrhea or constipation. Chest pain has improved, still with some pleuritic discomfort. Review of Systems Review of Systems: At least ten systems reviewed and negative except as noted in the HPI. Physical Exam Physical Exam: Gen: WD/WN, NAD, sittingup in bed, morbidly obese, A&Ox3 HEENT: Normocephalic, atraumatic, conjunctivae moist, sclerae anicteric, mucous membranes moist Lung: Coarse breath sounds bilaterally Heart: Regular rate, regular rhythm, no murmurs, rubs, or gallops Abdomen: Soft, NT, ND +BS x 4 : Fontaine catheter in place Extremities: + R foot with TTP along lateral aspect of ankle and midfoot as well as 5th toe. No edema or significant deformity noted Skin: Warm, no rash Results & Data Results & Data ([facility]) Vital Signs (Past 12 Hours) Vital Signs Temp Pulse Resp BP Pulse Ox O2 Del Method O2 Flow Rate 11/26/22 14:20 36.9 C 85 19 133/69 97 Room Air 3.5 11/26/22 07:28 36.6 C 76 18 136/73 93 Nasal Cannula 4 Laboratory Results [facility] 11/26/22 08:46 Sodium 136 Potassium 5.0 D Chloride 99 Carbon Dioxide 33 H BUN 21 Creatinine 0.93 Glucose 209 H Calcium 10.0 Diagnostic Findings Chest X-Ray 11/23/22 13:49 XR chest 1V portable CLINICAL HISTORY: Chest pain, nonspecific TECHNIQUE: Single frontal radiograph of the chest was obtained. Comparison: Comparison is made to chest radiograph 11/18/2022 FINDINGS: Exam is limited by underpenetration. The cardiomediastinal silhouette is normal. The lungs are clear. No evidence of pleural effusion or pneumothorax. IMPRESSION: Limited exam without evidence of acute abnormality. ACT 112: Negative or not required by law. Electronically signed by: Armand Tobar M.D. 11/23/2022 2:23 PM Ankle X-Ray 11/26/22 11:59 XR ankle RT min 3V routine CLINICAL HISTORY: prev h/o fracture, ankle sprain TECHNIQUE: 3 views of the right ankle were obtained. Comparison: Comparison is made to right foot MRI 05/04/2021 FINDINGS: No acute fractures are present. The joint spaces are well preserved. The ankle mortise is intact. Soft tissue swelling is seen about the ankle. IMPRESSION: Soft tissue swelling about the ankle without evidence of underlying acute fracture. ACT 112: Negative or not required by law. Electronically signed by: Armand Tobar M.D. 11/26/2022 12:30 PM Foot X-Ray 11/26/22 13:22 RIGHT FOOT 3 VIEWS CLINICAL HISTORY: Right foot injury. FINDINGS: 3 portable views of the right foot are compared to study dated 05/02/[address] of the right foot dated 05/02/2021. The skeletal structures are well-mineralized. There is an acute fracture through the proximal shaft of the fifth proximal phalanx with overlying soft tissue edema. No additional acute fracture is seen. There is a chronic nonunited fracture through the midshaft of the third metatarsal with surrounding radiodense/metallic foreign bodies. Minimal degenerative change is seen in the foot. There is soft tissue swelling along the dorsal aspect of the foot. IMPRESSION: 1. Acute nondisplaced fracture of the fifth proximal phalanx. 2. There is a chronic nonunited fracture through the mid shaft of the third metatarsal with surrounding radiodense/metallic foreign bodies. Electronically signed by: Misael Lopez M.D. 11/26/2022 2:26 PM (1) Chest pain Chest pain type: unspecified Qualified Code(s): R07.9 - Chest pain, unspecified (2) Syncope Syncope type: unspecified Qualified Code(s): R55 - Syncope and collapse
[2022-11-26] MEDS: ATORVASTATIN 40 MG TAB PO SCH (21:26)
[2022-11-27] MEDS: GABAPENTIN 800 MG TAB PO SCH ×3 (08:39→21:12)
[2022-11-27] MEDS: METOPROLOL SUCC 25MG EXT REL TAB PO SCH ×2 (08:39→21:12)
[2022-11-27] MEDS: FUROSEMIDE 40 MG TAB PO SCH ×2 (08:39→21:13)
[2022-11-27] MEDS: ISOSORBIDE DINITRATE 10 MG TAB PO SCH (08:40)
[2022-11-27] MEDS: MAGNESIUM OXIDE 400 MG TAB PO SCH (08:40)
[2022-11-27] MEDS: DULoxetine HCL 60 MG CAP PO SCH (08:40)
[2022-11-27] MEDS: TAMSULOSIN HCL 0.4 MG CAP PO SCH (08:40)
[2022-11-27] MEDS: PANTOprazole 40 MG TAB PO SCH (08:40)
[2022-11-27] MEDS: FOLIC ACID 1 MG TAB PO SCH (08:41)
[2022-11-27] MEDS: SPIRONOLACTONE 25 MG TAB PO SCH (08:41)
[2022-11-27] MEDS: FINASTERIDE 5 MG TAB PO SCH (08:41)
[2022-11-27] MEDS: FERROUS SULFATE 325 MG TAB PO SCH (08:41)
[2022-11-27] MEDS: ASPIRIN 81 MG ECTAB PO SCH (08:42)
[2022-11-27] MEDS: ADVANCED PROBIOTIC 1250 MG CAPSULE PO SCH ×3 (08:42→21:13)
[2022-11-27] MEDS: FLUTICASONE PROPIONATE NA SPR 16 GM BTL SCH (08:44)
[2022-11-27] MEDS: NICOTINE 21 MG/24 HR TDSY TD SCH (08:44)
[2022-11-27] MEDS: FAMOTIDINE 20 MG TAB PO SCH (08:45)
[2022-11-27] MEDS: DOCUSATE SODIUM 100 MG CAP PO SCH ×2 (08:45→21:24)
[2022-11-27] MEDS: DICLOFENAC SOD 1% GEL 100 GM TUBE EXT SCH ×2 (08:48→21:13)
[2022-11-27] MEDS: LORazepam 0.5 MG TAB PO PRN ×2 (08:51→21:13)
[2022-11-27] MEDS: CYCLOBENZAPRINE HCL 10 MG TAB PO PRN ×2 (08:51→21:13)
[2022-11-27] MEDS ORDERED: LANTUS PER UNIT CHARGE SQ SCH ×3 (09:00→21:00)
[2022-11-27] MEDS: buprenorphine HCL 8 MG SUBL SL SCH ×3 (09:03→21:13)
[2022-11-27] MEDS: POLYETHYLENE (MIRALAX) 17 GM PACK PO SCH (09:03)
[2022-11-27] MEDS: POTASSIUM CHLORIDE CRTAB 20 MEQ TABCR PO SCH ×2 (09:03→21:24)
[2022-11-27] MEDS: INSULIN ASPART PER UNIT SC SCH ×4 (09:25→21:15)
[2022-11-27 09:39] LABS: INR 1.6 (0.9-1.1); Prothrombin Time 16.8 Seconds (9.0-12.0)
[2022-11-27] MEDS ORDERED: ALBUT/IPRATROP 3MG/0.5MG NEB 3 ML VIAL NEB PRN (10:32)
--- NOTE | 2022-11-27 11:10 | XRay Report ---
LEFT FOOT 3 VIEWS CLINICAL HISTORY: Left foot pain. FINDINGS: 3 views of the left foot are compared to study dated 12/21/2021. The skeletal structures are well mineralized. Question nondisplaced fracture through the base of the fifth proximal phalanx. No a dditional findings are suspicious for acute fracture. The joint spaces of the foot are maintained. Th ere is a dorsal calcaneal enthesophyte. Mild soft tissue swelling suggested in the foot. IMPRESSION: 1. Questionable nondisplaced fracture through the base of the fifth proximal phalanx. Correlate for p oint tenderness. 2. No additional findings are suspicious for acute fracture. Electronically signed by: Misael Lopez M.D. 11/27/2022 11:08 AM
[2022-11-27] MEDS ORDERED: ACETAMINOPHEN 1,000 MG/100 ML VIAL IV STA ×2 (13:09→21:57)
--- NOTE | 2022-11-27 13:13 | Pharmacy Report ---
Pharmacy Glycemic Short Note 2 - Date of Service November 27, 2022 - Glycemic Short BSG Results (Last 24 hours): 11/26/22 11/26/22 11/27/22 17:00 20:38 08:17 POC Glucose 214 H 160 H 111 H 11/27/22 12:23 POC Glucose 145 H OUTPATIENT ANTIDIABETIC REGIMEN: * Lantus 50 units SQ qHS * Novolog TID with meals * Glipizide 10mg PO BID * HbA1c 7.8% (10/12/22) ASSESSMENT: 11/27/22: * BSGs elevated yesterday likely related to IV steroid prior evening, but trending down today * Fasting BSG this morning of 111 mg/dL * Prior glycemic data has been while patient was receiving steroids, will decrease Lantus today due to noticeable downtrend 11/26/22: * BSGs have been fairly stable this admission. * Fasting BSG tends to be above goal. Lantus increased today. * No additional changes required at this time. 11/24 * Mr Milner is a 52yo diabetic M admitted for syncope. * He is well known to the pharmacy glycemic management service. * BSGs were elevated on admission. Patient ate several large snacks last night at bedtime and received quite a bit of Novolog for coverage. As a result, patient was slightly hypoglycemic this morning (BSG 66). Expect that this was due to insulin-stacking. It is important to cover ONLY carbs when patient snacks like this, and to not correct the BSG each time. These instructions have been added to Novolog. * Will continue to follow and adjust insulin regimen as indicated. PLAN FOR INPATIENT GLYCEMIC CONTROL: * Hold outpatient oral diabetes medications * Basal insulin - decrease * Lantus 20-30 units SC BID * Bolus insulin - loosen * NovoLog per scale ACHS or Q6hrs while NPO * Goal Range: Low 110 mg/dL - High 140 mg/dL * Correction Factor: 20 mg/dL/unit * Nutritional / Prandial insulin per carb ratio of 1 unit per 6 grams CHO consumed
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
--- NOTE | 2022-11-27 16:12 | Communication Note ---
Date of Service: November 27, 2022 Received message that patient is having new pain in his left foot today, and was asked to review his new left foot x-rays obtained today. X-rays reviewed. There is a questionable nondisplaced fracture at the proximal phalanx of the left fifth toe. This is only visible on the oblique view, and not visible on the AP or lateral views. This can be adequately treated with holly taping of his fifth toe to his fourth toe as needed for comfort. He may weight-bear as tolerated on the left foot.
[2022-11-27] MEDS: WARFARIN SOD 5 MG TAB PO SCH (18:25)
[2022-11-27] MEDS: CHOLECALCIFEROL 5,000 UNITS 125 MCG TAB PO SCH (18:26)
[2022-11-27] MEDS: ATORVASTATIN 40 MG TAB PO SCH (21:13)
[2022-11-28] MEDS: NICOTINE 21 MG/24 HR TDSY TD SCH (08:06)
[2022-11-28] MEDS: DOCUSATE SODIUM 100 MG CAP PO SCH ×2 (09:30→21:52)
[2022-11-28] MEDS: DULoxetine HCL 60 MG CAP PO SCH (09:30)
[2022-11-28] MEDS: CYCLOBENZAPRINE HCL 10 MG TAB PO PRN ×2 (09:30→21:43)
[2022-11-28] MEDS: CHOLECALCIFEROL 5,000 UNITS 125 MCG TAB PO SCH (09:30)
[2022-11-28] MEDS: ASPIRIN 81 MG ECTAB PO SCH (09:30)
[2022-11-28] MEDS: LORazepam 0.5 MG TAB PO PRN ×2 (09:34→21:43)
[2022-11-28] MEDS: FERROUS SULFATE 325 MG TAB PO SCH (09:34)
[2022-11-28] MEDS: POTASSIUM CHLORIDE CRTAB 20 MEQ TABCR PO SCH ×2 (09:34→21:52)
[2022-11-28] MEDS: FAMOTIDINE 20 MG TAB PO SCH (09:34)
[2022-11-28] MEDS: MAGNESIUM OXIDE 400 MG TAB PO SCH (09:34)
[2022-11-28] MEDS: FOLIC ACID 1 MG TAB PO SCH (09:34)
[2022-11-28] MEDS: FINASTERIDE 5 MG TAB PO SCH (09:35)
[2022-11-28] MEDS: SPIRONOLACTONE 25 MG TAB PO SCH (09:35)
[2022-11-28] MEDS: ADVANCED PROBIOTIC 1250 MG CAPSULE PO SCH ×3 (09:35→21:43)
[2022-11-28] MEDS: PANTOprazole 40 MG TAB PO SCH (09:36)
[2022-11-28] MEDS: FUROSEMIDE 40 MG TAB PO SCH ×2 (09:36→21:44)
[2022-11-28] MEDS: GABAPENTIN 800 MG TAB PO SCH ×3 (09:36→21:44)
[2022-11-28] MEDS: ISOSORBIDE DINITRATE 10 MG TAB PO SCH (09:38)
[2022-11-28] MEDS: METOPROLOL SUCC 25MG EXT REL TAB PO SCH ×2 (09:38→21:45)
[2022-11-28] MEDS: TAMSULOSIN HCL 0.4 MG CAP PO SCH (09:38)
[2022-11-28] MEDS: buprenorphine HCL 8 MG SUBL SL SCH ×3 (09:40→21:43)
[2022-11-28] MEDS: POLYETHYLENE (MIRALAX) 17 GM PACK PO SCH (09:40)
[2022-11-28] MEDS: FLUTICASONE PROPIONATE NA SPR 16 GM BTL SCH (09:41)
[2022-11-28] MEDS: DICLOFENAC SOD 1% GEL 100 GM TUBE EXT SCH ×2 (09:42→21:45)
[2022-11-28] MEDS: INSULIN ASPART PER UNIT SC SCH ×4 (09:43→21:27)
[2022-11-28] MEDS: LANTUS PER UNIT CHARGE SQ SCH ×2 (09:51→21:45)
[2022-11-28] MEDS: guaiFENesin/DEXTROM SYRUP 100MG/10MG 5ML UDC PO PRN ×2 (10:11→18:02)
[2022-11-28] MEDS: WARFARIN SOD 2.5 MG TAB PO SCH (15:23)
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
[2022-11-28] MEDS: ATORVASTATIN 40 MG TAB PO SCH (21:44)
[2022-11-29] MEDS: guaiFENesin/DEXTROM SYRUP 100MG/10MG 5ML UDC PO PRN ×3 (05:29→20:43)
[2022-11-29 06:44] LABS: Hematocrit (blood only) 40.2 % (42.0-52.0); Hemoglobin 12.6 g/dl (14.0-18.0); Mean Corpuscular Hemoglobin 27.6 pg (25.0-34.0); Mean Corpuscular Hgb Conc 31.3 g/dL (32.0-36.0); Mean Corpuscular Volume 88.2 fL (80.0-100.0); Mean Platelet Volume 10.9 fL (9.4-12.4); Platelet Count 235 K/uL (130-400); RDW Coefficient of Variation 18.3 % (11.5-14.5); RDW Standard Deviation 58.1 fL (36.4-46.3); Red Blood Count 4.56 M/uL (4.70-6.10); White Blood Count 12.01 K/ul (4.8-10.8)
[2022-11-29 07:16] LABS: INR 1.4 (0.9-1.1); Prothrombin Time 14.2 Seconds (9.0-12.0)
[2022-11-29 08:51] LABS: BUN Creatinine Ratio 22.6 (10-20); Creatinine Clr Calc Pharmacy 181.4 ml/min; Est GFR (African American) 116.7 ml/min; Est GFR (Non-African American) 100.7 ml/min; Magnesium 1.8 mg/dl (1.7-2.4); Phosphorus 3.7 mg/dl (2.5-4.9)
[2022-11-29] MEDS: ASPIRIN 81 MG ECTAB PO SCH (09:31)
[2022-11-29] MEDS: FERROUS SULFATE 325 MG TAB PO SCH (09:31)
[2022-11-29] MEDS: DULoxetine HCL 60 MG CAP PO SCH (09:31)
[2022-11-29] MEDS: FOLIC ACID 1 MG TAB PO SCH (09:31)
[2022-11-29] MEDS: FUROSEMIDE 40 MG TAB PO SCH ×2 (09:31→20:42)
[2022-11-29] MEDS: CHOLECALCIFEROL 5,000 UNITS 125 MCG TAB PO SCH (09:31)
[2022-11-29] MEDS: PANTOprazole 40 MG TAB PO SCH (09:35)
[2022-11-29] MEDS: ADVANCED PROBIOTIC 1250 MG CAPSULE PO SCH ×3 (09:35→20:43)
[2022-11-29] MEDS: SPIRONOLACTONE 25 MG TAB PO SCH (09:35)
[2022-11-29] MEDS: GABAPENTIN 800 MG TAB PO SCH ×3 (09:36→20:42)
[2022-11-29] MEDS: FINASTERIDE 5 MG TAB PO SCH (09:36)
[2022-11-29] MEDS: ISOSORBIDE DINITRATE 10 MG TAB PO SCH (09:38)
[2022-11-29] MEDS: MAGNESIUM OXIDE 400 MG TAB PO SCH (09:38)
[2022-11-29] MEDS: TAMSULOSIN HCL 0.4 MG CAP PO SCH (09:38)
[2022-11-29] MEDS: METOPROLOL SUCC 25MG EXT REL TAB PO SCH ×2 (09:38→20:41)
[2022-11-29] MEDS: DOCUSATE SODIUM 100 MG CAP PO SCH ×2 (09:40→20:42)
[2022-11-29] MEDS: CYCLOBENZAPRINE HCL 10 MG TAB PO PRN ×2 (09:40→20:42)
[2022-11-29] MEDS: FAMOTIDINE 20 MG TAB PO SCH (09:40)
[2022-11-29] MEDS: POTASSIUM CHLORIDE CRTAB 20 MEQ TABCR PO SCH ×2 (09:40→20:48)
[2022-11-29] MEDS: LORazepam 0.5 MG TAB PO PRN ×2 (09:40→20:43)
[2022-11-29] MEDS: FLUTICASONE PROPIONATE NA SPR 16 GM BTL SCH (09:42)
[2022-11-29] MEDS: DICLOFENAC SOD 1% GEL 100 GM TUBE EXT SCH ×2 (09:44→20:44)
[2022-11-29] MEDS: buprenorphine HCL 8 MG SUBL SL SCH ×3 (09:44→20:44)
[2022-11-29] MEDS: NICOTINE 21 MG/24 HR TDSY TD SCH (09:44)
[2022-11-29] MEDS: POLYETHYLENE (MIRALAX) 17 GM PACK PO SCH (09:47)
[2022-11-29] MEDS: INSULIN ASPART PER UNIT SC SCH ×4 (09:48→20:46)
[2022-11-29] MEDS: LANTUS PER UNIT CHARGE SQ SCH ×2 (09:50→20:46)
[2022-11-29] MEDS ORDERED: WARFARIN SOD 3 MG TAB PO ONE (09:56)
[2022-11-29] MEDS ORDERED: NURSING DECISION MEDICATION ONE (15:37)
[2022-11-29] MEDS ORDERED: COUGH DROP (SUGAR FREE) LOZ 24 LOZ/1 BOX BUCCAL PRN (15:39)
[2022-11-29] MEDS: WARFARIN SOD 2.5 MG TAB PO SCH (15:53)
[2022-11-29] MEDS ORDERED: ACETAMINOPHEN 1,000 MG/100 ML VIAL IV ONE (16:19)
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
[2022-11-29] MEDS: ATORVASTATIN 40 MG TAB PO SCH (20:41)
[2022-11-30] MEDS: guaiFENesin/DEXTROM SYRUP 100MG/10MG 5ML UDC PO PRN ×2 (06:36→13:52)
[2022-11-30 07:44] LABS: INR 1.5 (0.9-1.1); Prothrombin Time 15.2 Seconds (9.0-12.0)
--- NOTE | 2022-11-30 08:23 | Pharmacy Report ---
Pharmacy Glycemic Short Note 2 - Date of Service November 30, 2022 - Glycemic Short BSG Results (Last 24 hours): 11/29/22 11/29/22 11/29/22 05:59 12:03 17:11 Glucose 140 H POC Glucose 140 H 149 H 11/29/22 11/30/22 20:23 07:53 Glucose POC Glucose 153 H 129 H OUTPATIENT ANTIDIABETIC REGIMEN: * Lantus 50 units SQ qHS * Novolog TID with meals * Glipizide 10mg PO BID * HbA1c 7.8% (10/12/22) ASSESSMENT: 11/30/22: * BSGs remain reasonably well-controlled, ranging 140-153 mg/dL yesterday with fasting BSG of 129 mg/dL this morning * Do not anticipate any changes to insulin regimen today 11/27/22: * BSGs elevated yesterday likely related to IV steroid prior evening, but trending down today * Fasting BSG this morning of 111 mg/dL * Prior glycemic data has been while patient was receiving steroids, will decrease Lantus today due to noticeable downtrend 11/26/22: * BSGs have been fairly stable this admission. * Fasting BSG tends to be above goal. Lantus increased today. * No additional changes required at this time. 11/24 * Mr Milner is a 52yo diabetic M admitted for syncope. * He is well known to the pharmacy glycemic management service. * BSGs were elevated on admission. Patient ate several large snacks last night at bedtime and received quite a bit of Novolog for coverage. As a result, patient was slightly hypoglycemic this morning (BSG 66). Expect that this was due to insulin-stacking. It is important to cover ONLY carbs when patient snacks like this, and to not correct the BSG each time. These instructions have been added to Novolog. * Will continue to follow and adjust insulin regimen as indicated. PLAN FOR INPATIENT GLYCEMIC CONTROL: * Hold outpatient oral diabetes medications * Basal insulin * Lantus 20 units SC BID * Bolus insulin - loosen * NovoLog per scale ACHS or Q6hrs while NPO * Goal Range: Low 110 mg/dL - High 140 mg/dL * Correction Factor: 20 mg/dL/unit * Nutritional / Prandial insulin per carb ratio of 1 unit per 7 grams CHO consumed
[2022-11-30] MEDS: FAMOTIDINE 20 MG TAB PO SCH (09:06)
[2022-11-30] MEDS: DOCUSATE SODIUM 100 MG CAP PO SCH (09:06)
[2022-11-30] MEDS: POTASSIUM CHLORIDE CRTAB 20 MEQ TABCR PO SCH (09:06)
[2022-11-30] MEDS: POLYETHYLENE (MIRALAX) 17 GM PACK PO SCH (09:08)
[2022-11-30] MEDS: FINASTERIDE 5 MG TAB PO SCH (09:09)
[2022-11-30] MEDS: DULoxetine HCL 60 MG CAP PO SCH (09:09)
[2022-11-30] MEDS: CHOLECALCIFEROL 5,000 UNITS 125 MCG TAB PO SCH (09:09)
[2022-11-30] MEDS: FERROUS SULFATE 325 MG TAB PO SCH (09:10)
[2022-11-30] MEDS: FUROSEMIDE 40 MG TAB PO SCH (09:11)
[2022-11-30] MEDS: FOLIC ACID 1 MG TAB PO SCH (09:11)
[2022-11-30] MEDS: GABAPENTIN 800 MG TAB PO SCH ×2 (09:12→13:52)
[2022-11-30] MEDS: ISOSORBIDE DINITRATE 10 MG TAB PO SCH (09:12)
[2022-11-30] MEDS: ADVANCED PROBIOTIC 1250 MG CAPSULE PO SCH ×2 (09:14→13:52)
[2022-11-30] MEDS: MAGNESIUM OXIDE 400 MG TAB PO SCH (09:15)
[2022-11-30] MEDS: METOPROLOL SUCC 25MG EXT REL TAB PO SCH (09:15)
[2022-11-30] MEDS: PANTOprazole 40 MG TAB PO SCH (09:16)
[2022-11-30] MEDS: CYCLOBENZAPRINE HCL 10 MG TAB PO PRN (09:17)
[2022-11-30] MEDS: SPIRONOLACTONE 25 MG TAB PO SCH (09:17)
[2022-11-30] MEDS: TAMSULOSIN HCL 0.4 MG CAP PO SCH (09:17)
[2022-11-30] MEDS: LORazepam 0.5 MG TAB PO PRN (09:18)
[2022-11-30] MEDS: buprenorphine HCL 8 MG SUBL SL SCH ×2 (09:18→13:51)
[2022-11-30] MEDS: NICOTINE 21 MG/24 HR TDSY TD SCH (09:19)
[2022-11-30] MEDS: DICLOFENAC SOD 1% GEL 100 GM TUBE EXT SCH (09:20)
[2022-11-30] MEDS: FLUTICASONE PROPIONATE NA SPR 16 GM BTL SCH (09:20)
[2022-11-30] MEDS: ASPIRIN 81 MG ECTAB PO SCH (09:27)
[2022-11-30] MEDS: INSULIN ASPART PER UNIT SC SCH ×2 (09:27→12:33)
[2022-11-30] MEDS: LANTUS PER UNIT CHARGE SQ SCH (09:27)
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
[2022-11-30] MEDS: WARFARIN SOD 5 MG TAB PO SCH (16:22)
--- NOTE | 2022-11-30 21:11 | Discharge Summary ---
Discharge Summary Date of Service November 30, 2022 Notes For Next Care Provider On day of discharge INR was 1.5. Pt was instructed to continue warfarin regimen and follow up with [facility]. He was admitted to hospital for syncope and chest pain. Seen and evaluated by cardiology. His troponins were normal x 4, ekg at baseline and recently underwent zio patch work up as outpatient. He remained euvolemic during hospital stay while on 2000ml fluid restriction. He had no exacerbation of COPD as he remained on 4L of chronic O2 therapy. He did have right and left foot injury with R ankle sprain and Right and Left 5th phalanx fracture. Ortho recommended walking boot to RLE to aid with ankle sprain. They would recommend OP follow up in 2-3 weeks with orthopedics if desired. Medication Changes From Visit Vitamin D3 5,0000IU daily x 1 month then 800mg daily thereafter. Continue all other home medications. Admission HPI Per Admitting Provider 52-year-old male with multiple hospital admissions recently was here from 10/26/2022 to 10/29/2022 and 11/12 - 11/15 for syncope and collapse. Other past medical history includes significant noncompliance, chronic opioid abuse, indwelling Fontaine which he has been unwilling to have removed, chronic systolic CHF, HTN, HLD, hypomagnesemia, DM type 2 insulin-dependent, COPD, morbid obesity, depression with anxiety, on chronic anticoagulation, tobacco abuse who presents to the ER with syncope/collapse and associated chest pain. Patient states that he wore his Zio patch recently for about a week during which time he had 1 episode of syncope and collapse and multiple episodes of near syncope. We will get the records. Patient reports having syncope and collapse again today, he reports getting up off the chair and walking maybe about 10 steps and then " he just collapsed, it was real quick", does not report any specific symptoms just prior to collapse and continues to say he just collapsed. He reports that he might have collapsed only for "very few seconds" and called his immediately for help. He is also not sure where he landed, at times he was telling his back and other times his butt and other times his knees and hands and finally is not sure where he hit himself. But immediately after the fall he reports having " horrible horrible chest pain" which he describes like a pressure-like and radiating to his left forearm and hand. He also reports having severe SOB at that time. Appears from his history that he was not sweating or nauseous or hit his head or had LOC or recent viral-like illness or runny nose. His cough appears at his baseline. His legs looks better with trace swelling. No evidence of bruise or injury over his back or back of head or shoulder. He reported that his chest pain lasted for about 5 to 7 minutes. He reports he has been passing out over the past several weeks. He continues to smoke. He was inquiring if he will get a different doctor tomorrow to follow him. He uses oxygen 4 L at bedtime, none during the day. Appears that he is not short of breath, he was on room air at bedside exam. Admission Exam Per Admitting Provider GENERAL: Alert and oriented x3. NAD, on RA, morbidly obese. HEENT: No pallor, no icterus. Pupils equal, round and reactive to light. Oral mucosa moist. NECK: No JVD, no neck masses. HEART: S1 and S2 heard. Regular rate and rhythm. No murmur, no gallop. RESPIRATORY SYSTEM: Normal AP diameter. No accessory muscle use. no wheezing, occ crackles. ABDOMEN: Soft, bowel sounds present, nontender, no distention. CENTRAL NERVOUS SYSTEM: No facial droop. Speech is clear. Obeys simple commands. Moves extremities. EXTREMITIES: trace edema, ble chronic skin changes noted, no erythema seen. Principal Dx & Hospital Course #1 = Principal Diagnosis (1) Chest pain: (2) Syncope: Plan Syncope and collapse Chest pain Hypokalemia Unreliable historian Noncompliant patient Patient reports having several near syncope and about weekly syncope at presentation, this time associated with " horrible horrible chest pain" and "extreme shortness of breath" Follows with [facility] as oupatient, recently used Zio patch for about a week during which time he had several near syncopal events and 1 syncope event per pt. Troponin trends x 4 WNL, EKG at baseline, vitals stable, patient on room air, afebrile. Telemetry monitoring, EKG as needed with chest pain, cardiology consult for chest pain and syncope, pt reports that he had his already mailed zio patch monitor back to his cardiology office. Patient appears euvolemic, does not appear to have increasing cough or any acute viral illness. Last admission, cardiology evaluated, metolazone was discontinued due to electrolyte abnormalities. Last admission potassium supplement was uptitrated to 40 mEq twice daily, if needed we will continue to uptitrate Will c/w FR 2 L given h/o heart failure. cardio evaled - no further recs. Pt has not complained of chest pain when not asked. Chronic respiratory failure: On 4 L oxygen at night and as needed. Has many episodes of acute exacerbation of COPD in the past, appears to be not wheezing at admission and not with increased cough. Tobacco cessation encouraged, patient seems not interested. Pt on room air and hemodynamically stable. Duonebs PRN for SOB or wheezing CHF (congestive heart failure): Most recent echo done on 08/17/2022 showing LVEF of 55 to 60%, mild concentric LVH, right ventricle mildly dilated Chronic Strict I/Os to maintain euvolemia, FR 2L c/w home diurese and KCL supplement.DC'd metolazoneper cardio recs last admission Leukocytosis: 27 K at presentation, procalcitonin negative/UA and CXR at his baseline at presentation. Urine in the bag looks clean w/o signs of infection. Likely secondary to chronic intermittent steroid use on top of his chronic leucocytosis. We will continue to monitor closely for any signs and symptoms of infection. No s/s of infection for now, no indication of antibiotic for now. wbc trending down on its own. follow up on blood culture collected at admission which is negative growth so far. Right foot injury: Worsened foot pain following transfer from med/tele to med/surg R ankle XR consistent with mild ankle sprain and WBAT per ortho. R foot XR showing acute nondisplaced fracture of the fifth proximal phalanx as well as evidence of chronic nonunited fracture of foot Per ortho, WBAT in a boot, boot ordered by ortho, PT/OT eval. Left foot injury: Complaining of L foot pain 3/10, so foot XR obtained with questionable nondisplaced fracture through the base of the fifth proximal phalanx. No additional findings are suspicious for acute fracture Appreciate ortho recommendations - holly tape it , wbat. PT/OT eval. Continuing tylenol for pain, or voltaren gel topically. Caution against additional narcotics given h/o opiate dependence Vitamin D deficiency: Vitamin D level obtained and level is low - c/w 5k daily vit D for a month then 800 units daily. Vit D level repeat in 3 months, f/u pcp. Chronic indwelling Fontaine catheter: Fontaine catheter was changed last admission, UA appears normal. Continue regular Fontaine care. He recently finished course of antibiotic for CAUTI around admission time. Chronic anticoagulation: INR subtherapeutic, pt did receive extra 3mg on 11/29, continue with home Coumadin, takes 5 mg on Wednesday and 2.5 all other days. PT/INR in AM/prn. Coumadin clinic upon discharge. T2DM with insulin deficiency: Sliding scale while in hospital, hold glipizide. Glycemic pharmacy. Morbid obesity: BMI of 57.4, diet and exercise encouraged at bedside counseling Opiate dependence: Continue buprenorphine therapy per home regimen. History of abuse. Continue scheduled MiraLAX and encourage ambulation as tolerated. Do not give any narcotic pain medication. Tobacco use disorder: Cessation encouraged, patient refuses to quit, nicotine patch as needed Noncompliance: Significant and chronic DVT prophylaxis: Continue home Coumadin Full code Dispo: to med/surg, PT/OT, pt reports no ride and stating he wants to go to rehab. Pt refusing to go home, will have PT/OT work with patient today to assist with transfers. PT/OT feel pt okay to home with support/. Unfortunately pt is not a candidate with home health due to no agency will accept patient due to previous encounters. He does not meet criteria for rehab and will be discharged to home today with . A total of 55 minutes was spent with greater than 50% of that time personally viewing all current laboratory work and diagnostic imaging studies obtained in the ED. Additionally, I was able to view the patients past medication reconciliation and history with direct visualization in the patients chart. Included in the time above, a portion of that time was spent assessing the patient while discussing and collaborating with specialists, if necessary, and making medical decision making on treatment plan. All of the above was collaborated with Dr. Gomez. Please see addendum for further details. Discharge Exam Gen: WD/WN, obese, M, NAD, A&O x3 HEENT: Normocephalic, atraumatic, conjunctivae moist, sclerae anicteric, mucous membranes moist. Lung: Clear to Auscultation bilaterally, b/l exp wheeze chronic for pt no wheeze/rales/rhonchi Heart: Regular rate, regular rhythm, no murmurs, rubs, or gallops Abdomen: Soft, NT, ND +BS x 4 Extremities: No edema, b/l venous stasis changes Skin: Warm, no rash, negative turgor. : chronic fontaine cath Updated Medication List Medication Instructions Recorded Confirmed Type fluticasone propionate 50 2 spray intranasal DAILY 06/01/18 11/23/22 History mcg/actuation nasal spray,suspension aspirin 81 mg tablet,delayed 81 mg PO QAM 11/17/18 11/23/22 History release (Ecotrin Low Strength) nitroglycerin 0.4 mg sublingual 0.4 mg sublingual DIRECTED PRN 12/09/18 11/23/22 History tablet (Nitrostat) CHEST PAIN nystatin 100,000 unit/gram topical 1 applic topical TID PRN Skin 12/09/18 11/23/22 History powder Irritation polyethylene glycol 3350 17 gram 17 g PO QAM 12/09/18 11/23/22 History oral powder packet (Miralax) finasteride 5 mg tablet 5 mg PO QAM 03/03/19 11/23/22 History cyclobenzaprine 10 mg tablet 10 mg PO BID PRN Muscle Spasm 03/10/19 11/23/22 History metoprolol succinate 50 mg 75 mg PO BID 08/01/19 11/23/22 History tablet,extended release 24 hr spironolactone 25 mg tablet 25 mg PO QAM 08/01/19 11/23/22 History docusate sodium 100 mg capsule 100 mg PO BID 08/11/19 11/23/22 History ipratropium 0.5 mg-albuterol 3 mg 3 ml inhalation Q6H PRN Shortness 08/11/19 11/23/22 History (2.5 mg base)/3 mL nebulization Of Breath Or Wheezing soln atorvastatin 80 mg tablet 80 mg PO QPM 12/07/19 11/23/22 History folic acid 1 mg tablet 1 mg PO QAM 12/07/19 11/23/22 History furosemide 40 mg tablet (Lasix) 40 mg PO BID 12/07/19 11/23/22 History sennosides 8.6 mg tablet (senna) 8.6 mg PO DAILY PRN Constipation 12/07/19 11/23/22 History albuterol sulfate 90 mcg/actuation 2 puff inhalation Q4 PRN Dyspnea 02/17/20 11/23/22 History aerosol inhaler omeprazole 20 mg capsule,delayed 20 mg PO DAILYBB 04/14/20 11/23/22 History release gabapentin 800 mg tablet 800 mg PO TID 05/30/20 11/23/22 History duloxetine 60 mg capsule,delayed 60 mg PO DAILY 07/05/20 11/23/22 History release famotidine 20 mg tablet 20 mg PO DAILY 07/05/20 11/23/22 History buprenorphine HCl 8 mg sublingual 8 mg sublingual TID 10/31/20 11/23/22 History tablet glipizide 10 mg tablet 10 mg PO BID 01/12/21 11/23/22 History Lactobacillus acidoph-L.bulgaricus 1 tab PO TID #30 tabs 05/09/21 11/23/22 Rx 1 million cell chewable tablet (Lactinex) ferrous sulfate 325 mg (65 mg 325 mg PO QAM 10/24/21 11/23/22 History iron) tablet hydroxyzine HCl 25 mg tablet 25 mg PO QID PRN Anxiety 10/24/21 11/23/22 History magnesium oxide 400 mg (241.3 mg 400 mg PO DAILY 10/24/21 11/23/22 History magnesium) tablet urea 20 % topical cream 1 applic topical BID Dry Areas on 10/24/21 11/23/22 History (Ureacin-20) Soles and Legs ondansetron HCl 4 mg tablet 4 mg PO Q8H PRN NAUSEA/VOMITING 12/17/21 11/23/22 History benzonatate 100 mg capsule 100 mg PO TID PRN cough #10 caps 01/02/22 11/23/22 Rx isosorbide dinitrate 30 mg tablet 30 mg PO DAILY 02/19/22 11/23/22 History tamsulosin 0.4 mg capsule (Flomax) 0.8 mg PO QAM #180 caps 03/10/22 11/23/22 Rx guaifenesin 600 mg tablet, 1,200 mg PO BID 07/29/22 11/23/22 History extended release 12 hr (Mucinex) warfarin 5 mg tablet 5 mg PO MOFR 07/29/22 11/23/22 History insulin aspart U-100 100 unit/mL 1 unit (0.01 mL) subcut TIDM #30 mL 08/05/22 11/23/22 Rx (3 mL) subcutaneous pen (Novolog FlexPen U-100 Insulin aspart) insulin glargine 100 unit/mL (3 50 unit (0.5 mL) SC HS 30 days #15 08/05/22 11/23/22 Rx mL) subcutaneous pen (Lantus mL Solostar U-100 Insulin) lorazepam 0.5 mg tablet 0.5 mg PO Q8 PRN Anxiety #6 tabs 08/05/22 11/23/22 Rx diclofenac sodium 1 % topical gel 2 g EXT BID #50 grams 10/22/22 11/23/22 Rx (Voltaren Arthritis Pain) dextromethorphan-guaifenesin 10 5 ml PO Q6H PRN cough #500 mL 11/15/22 11/23/22 Rx mg-100 mg/5 mL oral syrup potassium chloride 20 mEq 40 meq PO BID #60 tabs 11/15/22 11/23/22 Rx tablet,extended release warfarin 5 mg tablet 2.5 mg PO SUTUWETHSA 11/23/22 11/23/22 History cholecalciferol (vitamin D3) 125 5,000 unit PO QAM #30 tabs 11/30/22 Rx mcg (5,000 unit) tablet Hospital Stay Data Consultations 11/23/22 16:21 ED Decision to Admit Stat 11/23/22 17:11 Consult Cardiology Routine 11/23/22 17:36 HIM [Consult Health Information Management] Routine 11/26/22 10:47 Consult Orthopedic Surgery Routine Pending Results Patient Have Any Pending Studies at Discharge: No Discharge Instructions Given to Patient (Per Discharging Provider) MEDICATION CHANGES: Vitamin D3, 5000 units by mouth once daily Continue all other medications RECOMMENDATIONS FOR FOLLOW-UP: Please follow-up with primary care provider as scheduled. Continue current warfarin regimen. Recommend repeat INR per [facility] pharmacy recommendations. They are scheduled to call you on 12/02/22. Continue to follow 2L fluid restriction. Recommend Tylenol 500mg every 6 hours as needed for pain. Walking boot to right lower extremity when walking. You may bear weight on both feet as tolerated. Follow up with [facility], , in 2-3 weeks regarding ankle sprain and 5th toe fracture. Recommend ICE to foot/ankle for pain control. You were found to have low vitamin D level and it is recommend you supplement with 5,000 units of vitamin D3 daily for 1 month. After 1 month recommend 800 units of Vitamin D3 daily. Recommend repeat vitamin D level in 3 months. OTHER INSTRUCTIONS: Seek medical attention if you have: * temperature above 101 * chest pain or trouble breathing * abdominal pain, nausea, vomiting * diarrhea, dark stools or bloody stools * any unanswered questions or concerns Call 911 if symptoms are severe. Please take good care of yourself. It has been a pleasure taking care of you. Please take care of yourself. If you have any questions regarding your recent hospitalization please contact [facility] and request Gilda Carlinist @ [phone]. Total Time Total Time Spent Total Time Spent (In Minutes): 55 minutes Supervising Physician Co-Signing Physician Notes 52 yo M w/ PMH of noncompliance/unreliable historian, chronic opioid abuse, indwelling fontaine which he has been unwilling to have removed, chronic systolic CHF, HTN, HLD, DM 2, COPD, Morbid obesity, depression w/ anxiety, on chronic anticoagulation and ongoing tobacco abuse who presented 3/ w/ complain of syncope/collapse a/w chest pain was seen and examined at bedside. Pt had no further complains of any syncope/collapse or chest pain while in hospital. Cardio evaled, appreciate recs. Pt states he twisted Rt ankle on 38 evening and reports having pain around the ankle, ankle XR was obtained w/ no fracture but Rt foot XR w/ acute non displaced fracture of the fifth proximal phalanx. and Left foot XR w/ quest ionable fracture through base of the fifth proximal phalanx. Ortho evaled, appreciat recs. Vit D level low, on supplementation. Pt continues to ask for "prednisone", "iv tylenol" and "why not on antibiotic for UTI". He has taken only one dose of PO tylenol while in hospital. He has been explained as his COPD is at his baseline, he doesn't need steroid; and his Urine is not infected, infact his WBC trended down on itself which was elevated at presentation. On exam, mobidly obese, nad, on 4L NC, occ crackles on lung exam, Rt foot exam - no appreciable redness or swelling. BLE w/ chronic skin changes. Rest of the exam as above. I have seen and examined the patient and have discussed the case with the provider above. I agree with the assessment and plan as stated.
== END 2022-11-30 17:31 | disposition home or self-care (01) ==
LOC: ED 13:20 → 4W 17:45 → INTOOBSV 17:45 → 4W 19:50 → 3W 11-25 19:14
DX: I50.22 Chronic systolic (congestive) heart failure; E11.9 Type 2 diabetes mellitus without complications; Z79.84 Long term (current) use of oral hypoglycemic drugs; X50.0XXA Overexertion from strenuous movement or load, initial encounter; Z88.6 Allergy status to analgesic agent; J44.9 Chronic obstructive pulmonary disease, unspecified; E87.6 Hypokalemia; R07.9 Chest pain, unspecified; Z91.199 Patient's noncompliance with other medical treatment and regimen due to unspecified reason; Z79.4 Long term (current) use of insulin; Z88.1 Allergy status to other antibiotic agents; F17.210 Nicotine dependence, cigarettes, uncomplicated; E66.01 Morbid (severe) obesity due to excess calories; I11.0 Hypertensive heart disease with heart failure; D72.829 Elevated white blood cell count, unspecified; S93.401A Sprain of unspecified ligament of right ankle, initial encounter; Z88.5 Allergy status to narcotic agent; R55 Syncope and collapse; Z68.43 Body mass index [BMI] 50.0-59.9, adult; Z88.8 Allergy status to other drugs, medicaments and biological substances; Z79.82 Long term (current) use of aspirin; Z79.01 Long term (current) use of anticoagulants; Z79.899 Other long term (current) drug therapy; F11.20 Opioid dependence, uncomplicated

== ENCOUNTER 2022-12-17 16:07 | Observation (INO) ==
[2022-12-17] MEDS ORDERED: SODIUM CHLORIDE 0.9% 1000ML 1,000 ML IV ONE (16:35)
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
[2022-12-17 17:29] LABS: Basophils # (auto) 0.06 K/uL (0-0.2); Basophils % (auto) 0.4 %; Eosinophils # (auto) 0.25 K/uL (0-0.50); Eosinophils % (auto) 1.5 %; Hematocrit (blood only) 42.8 % (42.0-52.0); Immature Granulocytes # (auto) 0.11 K/uL (0.01-0.20); Immature Granulocytes % (auto) 0.6 %; Lymphocytes # (auto) 3.08 K/uL (1.2-3.4); Mean Corpuscular Hemoglobin 28.2 pg (25.0-34.0); Mean Corpuscular Hgb Conc 32.7 g/dL (32.0-36.0); Mean Corpuscular Volume 86.1 fL (80.0-100.0); Mean Platelet Volume 10.4 fL (9.4-12.4); Monocytes # (auto) 0.99 K/uL (0.11-0.59); Monocytes % (auto) 5.8 %; Neutrophils # (auto) 12.59 K/uL (1.40-6.50); Neutrophils % (auto) 73.7 %; Platelet Count 246 K/uL (130-400); RDW Standard Deviation 58.2 fL (36.4-46.3); Red Blood Count 4.97 M/uL (4.70-6.10); White Blood Count 17.08 K/ul (4.8-10.8)
[2022-12-17 18:05] LABS: Influenza A virus by PCR Negative (Neg); Influenza B virus by PCR Negative (Neg); RSV by PCR Negative (Neg); SARS CoV2 RNA(COVID-19) Ceph NEGATIVE (Negative)
[2022-12-17] MEDS ORDERED: PIPERACILLIN/TAZOBACTAM 4.5 GM/120 ML BAG IV ONE (18:07)
--- NOTE | 2022-12-17 18:33 | XRay Report ---
XR chest 1V portable HISTORY: Altered mental status. COMPARISON: Chest 11/23/2022. FINDINGS: There are low lung volumes. The heart is normal in size. No pneumothorax. No evidence for p ulmonary edema. Stable blunting of the costophrenic sulci, left greater than right. This may be techn ical. No new focal lung consolidations identified. IMPRESSION: No significant change compared to the prior study. No acute process. ACT 112: Negative or not required by law. Electronically signed by: Vidal Keller M.D. 12/17/2022 6:31 PM
--- NOTE | 2022-12-17 18:40 | CT Scan Report ---
HEAD CT NONCONTRAST CT DOSE: 1136.68 mGy.cm HISTORY: Altered mental status. TECHNIQUE: Multiaxial CT images of the head were performed without the use of intravenous contrast. A utomated exposure control was utilized for this study. A dose lowering technique was utilized adheri ng to the principles of ALARA. Comparison: Head CT 11/18/2022. Findings: Near complete opacification the right maxillary sinus, unchanged. Mild mucosal thickening w ithin the remaining paranasal sinuses which has significantly improved in the interval. The right mas toid air cells are clear. There is a small left mastoid effusion, unchanged. The calvarium and skull base are intact. The ventricles and sulci are within normal limits. There is no mass, hematoma, midli ne shift, or acute infarct. Impression: No acute intracranial abnormality. Interval improvement in the paranasal sinus disease. ACT 112: Negative or not required by law. Electronically signed by: Vidal Keller M.D. 12/17/2022 6:37 PM
[2022-12-17 18:45] LABS: Appearance Urine Clear (Clear); Bacteria Urine Automated Negative (Negative); Bilirubin Urine Negative (Negative); Blood Urine 1+ (Negative); Cast Urine Automated 0 /lpf (0-5); Color Urine Yellow; Glucose Urine UA Negative (Negative); Ketones Urine Negative (Negative); Leukocyte Esterase Urine 1+ (Negative); Nitrite Urine Negative (Negative); Protein Urine Negative (Negative); Specific Gravity Urine 1.007 (1.000-1.030); Urobilinogen Urine Negative (Negative)
[2022-12-17 18:56] LABS: Alanine Aminotransferase 13 U/L (7-52); Albumin Globulin Ratio 1.2 (0.9-2); Albumin Level 3.5 gm/dl (3.4-5.0); Alkaline Phosphatase 103 U/L (34-104); Anion Gap 5 (3-11); Aspartate Aminotransferase 15 U/L (13-39); BUN Creatinine Ratio 14.8 (10-20); Bilirubin,Total 0.9 mg/dl (0.2-1.0); Blood Urea Nitrogen 12 mg/dl (6-23); Carbon Dioxide 35 mmol/L (21-32); Chloride 98 mmol/L (98-107); Est GFR (African American) 118.4 ml/min; Est GFR (Non-African American) 102.2 ml/min; Glucose 126 mg/dl (70-99(Fasting)); Lipase 16 U/L (11-82); Potassium 3.5 mmol/L (3.5-5.1); Sodium 138 mmol/L (136-145); Total Protein 6.5 gm/dl (6.0-8.3)
[2022-12-17 19:03] LABS: Troponin I High Sensitivity 8.8 pg/ml (0-20)
[2022-12-17 19:07] LABS: INR 2.9 (0.9-1.1); Prothrombin Time 28.8 Seconds (9.0-12.0)
[2022-12-17] MEDS ORDERED: POTASSIUM CHLORIDE CRTAB 20 MEQ TABCR PO STA (20:37)
[2022-12-17] MEDS ORDERED: PROMETHAZINE HCL 25 MG TAB PO PRN (21:42)
[2022-12-17] MEDS ORDERED: ACETAMINOPHEN 325 MG TAB PO PRN (21:42)
[2022-12-17] MEDS ORDERED: NYSTATIN POWDER 15GM BTL EXT PRN (21:42)
[2022-12-17] MEDS ORDERED: GLUCOSE 40% GEL 15 GM TUBE PO PRN (21:42)
[2022-12-17] MEDS ORDERED: ONDANSETRON INJ 2 MG/ML 2 ML VIAL IV PRN (21:42)
[2022-12-17] MEDS ORDERED: GLUCOSE 10 TAB/TUBE PO PRN (21:42)
[2022-12-17] MEDS ORDERED: SENNA 8.6 MG TAB PO PRN (21:42)
[2022-12-17] MEDS ORDERED: GLUCAGON FOR INJ 1 MG VIAL SQ PRN (21:42)
[2022-12-17] MEDS ORDERED: hydrOXYzine HCl 25 MG TAB PO PRN (21:42)
[2022-12-17] MEDS ORDERED: POLYETHYLENE (MIRALAX) 17 GM PACK PO PRN (21:42)
[2022-12-17] MEDS ORDERED: ALBUT/IPRATROP 3MG/0.5MG NEB 3 ML VIAL INH PRN (21:42)
[2022-12-17] MEDS ORDERED: NITROGLYCERIN SL 0.4 MG/TAB TAB SL PRN ×2 (21:42)
[2022-12-17] MEDS ORDERED: DEXTROSE 50% 50 ML SYRINGE IV PRN (21:42)
[2022-12-17] MEDS ORDERED: BENZONATATE 100 MG CAPSULE PO PRN (21:42)
[2022-12-17] MEDS ORDERED: CARBOHYDRATES FOR HYPOGLYCEMIA PO PRN (21:42)
[2022-12-17] MEDS: ATORVASTATIN 40 MG TAB PO SCH (23:06)
[2022-12-17] MEDS: DOCUSATE SODIUM 100 MG CAP PO SCH (23:07)
[2022-12-17] MEDS: DICLOFENAC SOD 1% GEL 100 GM TUBE EXT SCH (23:07)
[2022-12-17] MEDS: guaiFENesin 600 MG TABCR PO SCH (23:08)
[2022-12-17] MEDS: WARFARIN SOD 2.5 MG TAB PO SCH (23:09)
[2022-12-17] MEDS: METOPROLOL SUCC 25MG EXT REL TAB PO SCH (23:10)
[2022-12-17] MEDS: Patient's HEIGHT &/or WEIGHT Needed SCH ×3 (23:16→23:59)
[2022-12-17] MEDS: INSULIN ASPART PER UNIT CHARGE SC SCH (23:20)
--- NOTE | 2022-12-17 23:27 | History and Physical Report ---
DATE OF ADMISSION: 12/17/2022 CHIEF COMPLAINT: Confusion. HISTORY OF PRESENT ILLNESS: This is a 52-year-old male with past medical history significant for type 2 diabetes, peripheral neuropathy, diabetic retinopathy, COPD, obstructive sleep apnea and COPD overlap syndrome, on oxygen during nighttime and sometimes using on daytime as per the , allergic rhinitis, chronic diastolic CHF, venous insufficiency, history of supraventricular tachycardia, history of CAD, morbid obesity, GERD, chronic pain syndrome, on chronic pain medications, chronic bilateral back pain without sciatica, history of iron-deficiency anemia due to chronic blood losses, depression with anxiety, ongoing tobacco abuse, history of pulmonary embolism, history of drug overdose, personality disorder, history of subdural hematoma, subarachnoid hemorrhage, opiate dependence, history of low testosterone, who presents with confusion. The patient is alert and oriented, but somewhat slow to answer. I talked to the on the phone. As per the since last 1 week, he was still falling frequently at home every day 2-3 times and has a bruise on his left forearm.He walks with cane and feels imbalance and he falls down. Sometimes he loses consciousness for a few seconds, seems to be having some shaking episodes during that episode but no biting of the tongue and no incontinence. He has a Lloyd bag. When he falls down, is very difficult to get up. It takes a long time to get him up. He seems to be confused for a few seconds to a few minutes and is back to normal. This is an ongoing issue. Today when he woke up from sleep at 2:00p.m., he seemed a little confused, he did not know where he was. He does not take his medications and does not eat his food today and that is the reason brought him to the ER. Currently, alert and oriented, knows that he is in the hospital, able to answer questions but somewhat slow. He has chronic cough. Denies any fevers. He said he had chest pain earlier, that is resolved currently. He has some blurred visions. No headache. No earaches. Has some abdominal discomfort. Normal bowel movements. He has chronic swelling in the legs. Hemodynamically stable, he is saturating okay on 4 liters. His white count was 17. His INR is 2.9, creatinine 0.8. Lactate 1.8. Ammonia 12. LFTs okay. Troponin 8.8. Urinalysis, +1 leukocyte esterase, bacteria negative. COVID, influenza and RSV negative. CT of the head is okay. ALLERGIES: CEFEPIME, DAPTOMYCIN, FENTANYL, NALOXONE, TYLENOL, IBUPROFEN, VALPROIC ACID. PAST MEDICAL HISTORY: As mentioned above. PAST SURGICAL HISTORY: Colonoscopy, EGDs, EGD with endoscopic ultrasound, foot surgery, repair of left extensor tendon, repair of the left hand joint, history of appendectomy, lumbar laminectomy. SOCIAL HISTORY: Smokes 1 pack a day. Lives at home. No alcohol use. No drug use except for the prescription medications. FAMILY HISTORY: Significant for sister has breast cancer; mother has back problems; father had aneurysm; maternal grandfather had NV in 50s; maternal grandmother had MIs in her 80s; paternal grandfather had COPD. MEDICATIONS: The patient is on albuterol 2 puffs inhalation q.4 hours p.r.n., aspirin 81 mg p.o. a.m., atorvastatin 80 mg p.o. p.m., benzonatate 100 mg p.o. t.i.d. p.r.n., buprenorphine 8 mg sublingual t.i.d., vitamin D 5000 units p.o. a.m., cyclobenzaprine 10 mg p.o. b.i.d. p.r.n., dextromethorphan/guaifenesin 5 mL p.o. q.6 hours p.r.n., Voltaren Arthritis 2 g externally b.i.d., Colace 100 mg p.o. b.i.d., duloxetine 60 mg p.o. daily, famotidine 20 mg p.o. daily, ferrous sulfate 325 mg p.o. a.m., finasteride 5 mg p.o. a.m., Flonase 2 sprays intranasal daily, folic acid 1 mg p.o. a.m., Lasix 40 mg p.o. b.i.d., gabapentin 800 mg p.o. t.i.d., glipizide 10 mg p.o. b.i.d., Mucinex 1200 mg p.o. b.i.d., hydroxyzine 25 mg p.o. q.i.d. p.r.n., NovoLog t.i.d., Lantus 50 units at bedtime, DuoNeb q.6 hours p.r.n., isosorbide dinitrate 30 mg p.o. daily, Lactinex 1 tablet p.o. t.i.d., lorazepam 0.5 mg p.o. q.8 hours p.r.n., magnesium oxide 400 mg p.o. daily, metoprolol succinate 75 mg p.o. b.i.d., nitroglycerin 0.4 mg sublingual p.r.n., nystatin topical t.i.d. p.r.n., omeprazole 20 mg p.o. daily, Zofran 4 mg p.o. q.8 hours p.r.n., MiraLax 17 g p.o. a.m., potassium chloride 40 mEq p.o. b.i.d., promethazine 12.5 mg p.o. b.i.d. p.r.n., Senokot 8.6 mg p.o. daily, spironolactone 25 mg p.o. daily, Flomax 0.8 mg p.o. a.m., warfarin 2.5 mg p.o. 5 times a week and 5 mg 2 times a week. REVIEW OF SYSTEMS: As per HPI, could not get extensive review of systems as the patient is somewhat slow to answer, most of the history acquired from his on the phone. PHYSICAL EXAMINATION: GENERAL: The patient is alert and awake, seems oriented, not in acute distress. HEENT: No pallor, no icterus. Pupils equal. Extraocular muscles intact. Oral mucosa somewhat dry. NECK: No JVD. No neck masses. CARDIOVASCULAR: S1 and S2 heard. Regular rate and rhythm. No murmur, no gallop. RESPIRATORY SYSTEM: Normal AP diameter. No accessory muscle use. Occasional wheezing, no crackles. ABDOMEN: Soft, bowel sounds present, nontender, no distention. CENTRAL NERVOUS SYSTEM: Alert and awake. Speech is clear. No facial droop. Obeys simple commands. Insight is okay but slow to answer. Moves extremities. No pronator drift. Coordination of movements normal. Sensation is intact. EXTREMITIES: Lower extremity edema present. Chronic skin changes seen. LABORATORY DATA: WBC 17, hemoglobin 14, hematocrit 42.8, platelets 246. PT 28.8, INR 2.9. Sodium 138, potassium 3.5, chloride 98, CO2 of 35, BUN 12, creatinine 0.8, serum glucose 126. Lactate 1.8, calcium 9, total bilirubin 0.9, AST 15, ALT 13, alkaline phosphatase 103, ammonia 12, lipase 16. Urinalysis, +1 leukocyte esterase, bacteria negative. SARS-CoV-2 PCR negative. Influenza A and B PCR negative. RSV PCR negative. IMAGING: Chest x-ray: No significant change compared to prior study, no acute process. CT of the head: No acute intracranial abnormality. Interval improvement in the paranasal sinus disease. ASSESSMENT AND PLAN: A 52-year-old male who presents with confusion and near syncope/syncope episodes and frequent falls at home. 1. Confusion. CT of the head is okay. Lactic acid okay. Ammonia is okay. Has some leukocytosis and possible urinary tract infection with chronic indwelling Lloyd catheter. venous blood gases ok. Currently alert and oriented, hemodynamically stable. Somewhat slow to answer. Emergency Room empirically started him on Zosyn, which will be continued. We will follow the urine cultures, closely monitor in the hospital. We will hold his home medications of gabapentin, Ativan, hydroxyzine and his buprenorphine for now until his mental status improves. close monitor. 2. Possible urinary tract infection. Antibiotics as above. We will follow the cultures. 3. Near syncope, syncope, frequent falls at home as per the family and as per the patient. He was recently in the hospital with similar complaints. Seen by cardiology . there was a Zio patch. As per the Epic note, the Zio patch was evaluated and seemed to have mostly rare ectopy, premature atrial contractions and premature ventricular contractions. No concerning arrhythmia was found to correlate with syncope. His symptoms were mostly correlated with sinus and sinus tachycardia, heart rate ranging from 90-110. There is a plan to increase his metoprolol dose. Currently on metoprolol succinate 75 mg p.o. b.i.d., which will be continued and we will get an echocardiogram, monitor in telemetry and further recommendations with increase of metoprolol and other recommendations as per cardiology in the a.m. 4. Questionable seizures. The patient's family says when he had these episodes, he has some shaking , but no incontinence, no biting of the tongue, but he is confused for a few seconds to a few minutes after that episodes. We will get an EEG and neurology evaluation. 5. Frequent falls from above. We will get physical therapy and occupational therapy. May need rehabilitation placement. 6. Chronic respiratory failure, on 4 liters of oxygen at nighttime and as needed. 7. History of episodes of chronic obstructive pulmonary disease exacerbation in the past. He has some mild wheezing on examination. He has chronic cough. Continue his home DuoNeb for now and monitor. 8. Ongoing tobacco abuse, smokes 1 pack a day. Needs counseling. We will place him on nicotine patch. 9. History of chronic diastolic congestive heart failure. thinks that he may be volume depleted and that is the reason he is falling out frequently, but she was not sure. His laboratories look okay. We will continue his home Lasix with potassium supplements. Potassium supplement was increased last admit.His metolazone was discontinued in the previous admission for electrolyte abnormalities.. We will follow intakes and outputs, daily weights and await cardiology recommendations. 10. Right foot injury. Last admission, he had a right ankle x-ray consistent with mild ankle sprain and seen by orthopedics and recommended weightbearing as tolerated by orthopedics and the right foot x-ray showing acute nondisplaced fracture of the fifth proximal phalanx. Weightbearing as tolerated in the boot was ordered by orthopedics. Physical therapy and occupational therapy evaluation again. If necessary, we will consult orthopedics again. Continue Voltaren gel. 11. Vitamin D deficiency. Continue vitamin D. Levels need to follow up. 12. Chronic indwelling Lloyd catheter. Lloyd care. 13. History of pulmonary embolism, on Coumadin. INR therapeutic. 14. History of diabetes, on Lantus and insulin sliding scale. We will follow the blood sugars. Hold glipizide. Follow hemoglobin A1c levels. 15. Morbid obesity, needs counseling. 16. Opioid dependency, on buprenorphine therapy, which we will hold for now because of his confusion. Restart when his mental status improves. 17. History of noncompliance, needs counseling. 18. Deep venous thrombosis prophylaxis. INR therapeutic. We will monitor PT/INR. DISPOSITION: Admit to tele floor. PT/OT. Social service to help with discharge planning. Level 1, full code. Job ID: [id number] [facility]
[2022-12-17 23:55] LABS: Amphetamines+Metham, Urine Neg (Neg); Barbiturates, Urine Neg (Neg); Benzodiazepine, Urine Neg (Neg); Cocaine, Urine Neg (Neg); MDMA (Ecstacy), Urine Neg (Neg); Methadone, Urine Neg (Neg); Opiate, Urine Neg (Neg); Phencyclidine, Urine Neg (Neg)
[2022-12-17 23:57] LABS: Base Excess VBG 11.5 mEq/L; HCO3 VBG 39 mmol/L; Oxygen Saturation VBG < 60.0 %; PCO2 VBG 63 mmHg (38-50); PO2 VBG 30 mmHg
[2022-12-18] MEDS: Patient's HEIGHT &/or WEIGHT Needed SCH ×6 (00:31→08:33)
[2022-12-18] MEDS: PIPERACILLIN/TAZOBACTAM 4.5 GM in DEXTROSE 5% 100 ML IV SCH ×3 (03:57→20:13)
[2022-12-18 05:26] LABS: BUN Creatinine Ratio 13.6 (10-20); Creatinine Clr Calc Pharmacy 177.5 ml/min; Est GFR (African American) 114.5 ml/min; Est GFR (Non-African American) 98.8 ml/min; Magnesium 1.6 mg/dl (1.7-2.4); Potassium 3.8 mmol/L (3.5-5.1)
[2022-12-18] MEDS: PANTOprazole 40 MG TAB PO SCH (05:58)
[2022-12-18 06:36] LABS: INR 2.8 (0.9-1.1); Prothrombin Time 28.1 Seconds (9.0-12.0)
[2022-12-18 07:02] LABS: Basophils # (auto) 0.07 K/uL (0-0.2); Basophils % (auto) 0.4 %; Eosinophils # (auto) 0.36 K/uL (0-0.50); Eosinophils % (auto) 2.1 %; Estimated Average Glucose 183 mg/dl; Hematocrit (blood only) 42.6 % (42.0-52.0); Hemoglobin 13.5 g/dl (14.0-18.0); Immature Granulocytes # (auto) 0.14 K/uL (0.01-0.20); Immature Granulocytes % (auto) 0.8 %; Lymphocytes # (auto) 3.25 K/uL (1.2-3.4); Lymphocytes % (auto) 19.3 %; Mean Corpuscular Hemoglobin 27.7 pg (25.0-34.0); Mean Corpuscular Hgb Conc 31.7 g/dL (32.0-36.0); Mean Corpuscular Volume 87.5 fL (80.0-100.0); Mean Platelet Volume 10.2 fL (9.4-12.4); Monocytes # (auto) 1.07 K/uL (0.11-0.59); Monocytes % (auto) 6.4 %; Neutrophils # (auto) 11.92 K/uL (1.40-6.50); Platelet Count 250 K/uL (130-400); Platelet Estimate Normal (Normal); RBC Morphology Unremarkable; RDW Coefficient of Variation 18.9 % (11.5-14.5); RDW Standard Deviation 58.4 fL (36.4-46.3); Red Blood Count 4.87 M/uL (4.70-6.10); White Blood Count 16.81 K/ul (4.8-10.8)
[2022-12-18] MEDS: TAMSULOSIN HCL 0.4 MG CAP PO SCH (08:30)
[2022-12-18] MEDS: NICOTINE 21 MG/24 HR TDSY TD SCH (08:30)
[2022-12-18] MEDS: METOPROLOL SUCC 25MG EXT REL TAB PO SCH ×2 (08:30→20:18)
[2022-12-18] MEDS: POLYETHYLENE (MIRALAX) 17 GM PACK PO SCH (08:30)
[2022-12-18] MEDS: FERROUS SULFATE 325 MG TAB PO SCH (08:30)
[2022-12-18] MEDS: CHOLECALCIFEROL 5,000 UNITS 125 MCG TAB PO SCH (08:30)
[2022-12-18] MEDS: POTASSIUM CHLORIDE CRTAB 20 MEQ TABCR PO SCH ×2 (08:30→20:19)
[2022-12-18] MEDS: FINASTERIDE 5 MG TAB PO SCH (08:30)
[2022-12-18] MEDS: DULoxetine HCL 60 MG CAP PO SCH (08:30)
[2022-12-18] MEDS: ASPIRIN 81 MG ECTAB PO SCH (08:31)
[2022-12-18] MEDS: SPIRONOLACTONE 25 MG TAB PO SCH (08:31)
[2022-12-18] MEDS: ADVANCED PROBIOTIC 1250 MG CAPSULE PO SCH ×3 (08:31→20:18)
[2022-12-18] MEDS: MAGNESIUM OXIDE 400 MG TAB PO SCH (08:31)
[2022-12-18] MEDS: guaiFENesin 600 MG TABCR PO SCH (08:31)
[2022-12-18] MEDS: ISOSORBIDE DINITRATE 10 MG TAB PO SCH (08:31)
[2022-12-18] MEDS: FAMOTIDINE 20 MG TAB PO SCH (08:31)
[2022-12-18] MEDS: DICLOFENAC SOD 1% GEL 100 GM TUBE EXT SCH ×2 (08:32→20:43)
[2022-12-18] MEDS: FOLIC ACID 1 MG TAB PO SCH (08:32)
[2022-12-18] MEDS: FLUTICASONE PROPIONATE NA SPR 16 GM BTL SCH (08:32)
[2022-12-18] MEDS: DOCUSATE SODIUM 100 MG CAP PO SCH ×2 (08:37→20:18)
[2022-12-18] MEDS: INSULIN ASPART PER UNIT CHARGE SC SCH ×4 (08:37→20:39)
[2022-12-18] MEDS ORDERED: FUROSEMIDE 40 MG TAB PO SCH (09:00)
--- NOTE | 2022-12-18 09:29 | Cardiology Consultation ---
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 (Metoprolol Succ 25mg Ext Rel Tab) 75 mg PO BID [facility] Stop: 01/16/23 21:41 Last Admin: 12/18/22 08:30 Dose: 75 mg Miscellaneous (Urea [Ureacin-20] 20 % Cream - Order Awaiting Action) 1 each N/A QS [facility] Stop: 01/17/23 00:00 Last Admin: 12/18/22 08:33 Dose: Not Given Miscellaneous (Carbohydrates For Hypoglycemia ) 15 - 30 gm PO UD PRN PRN Reason: Hypoglycemia Protocol Stop: 01/16/23 21:41 Miscellaneous (Remove Nicoderm Patch) 1 each N/A DAILY@0859 [facility] Stop: 01/17/23 08:58 Last Admin: 12/18/22 08:30 Dose: Not Given Nicotine (Nicotine 21 Mg/24 Hr Tdsy) 21 mg TD QAM [facility] Stop: 01/17/23 08:59 Last Admin: 12/18/22 08:30 Dose: 21 mg Nitroglycerin (Nitroglycerin Sl 0.4 Mg/Tab Tab) 0.4 mg SL UD PRN PRN Reason: Chest Pain Stop: 01/16/23 21:41 Nitroglycerin (Nitroglycerin Sl 0.4 Mg/Tab Tab) 0.4 mg SL Q5M PRN PRN Reason: CHEST PAIN Stop: 01/16/23 21:41 Nystatin (Nystatin Powder 15gm Btl) 1 appln EXT TID PRN PRN Reason: Skin Irritation Stop: 01/16/23 21:41 Ondansetron HCl (Ondansetron Inj 2 Mg/Ml 2 Ml Vial) 4 mg IV Q6H PRN PRN Reason: Nausea Stop: 01/16/23 21:41 Pantoprazole Sodium (Pantoprazole 40 Mg Tab) 40 mg PO DAILYBB [facility] Stop: 01/17/23 06:29 Last Admin: 12/18/22 05:58 Dose: 40 mg Polyethylene Glycol (Polyethylene (Miralax) 17 Gm Pack) 17 gm PO DAILY PRN PRN Reason: Constipation Stop: 01/16/23 21:41 Polyethylene Glycol (Polyethylene (Miralax) 17 Gm Pack) 17 gm PO QAM [facility] Stop: 01/17/23 08:59 Last Admin: 12/18/22 08:30 Dose: 17 gm Potassium Chloride (Potassium Chloride Crtab 20 Meq Tabcr) 40 meq PO BID [facility] Stop: 01/17/23 08:59 Last Admin: 12/18/22 08:30 Dose: 40 meq Promethazine HCl (Promethazine Hcl 25 Mg Tab) 12.5 mg PO BID PRN PRN Reason: nausea and vomiting Stop: 01/16/23 21:41 Sennosides (Senna 8.6 Mg Tab) 8.6 mg PO DAILY PRN PRN Reason: Constipation Stop: 01/16/23 21:41 Spironolactone (Spironolactone 25 Mg Tab) 25 mg PO [facility] Stop: 01/17/23 08:59 Last Admin: 12/18/22 08:31 Dose: 25 mg Tamsulosin HCl (Tamsulosin Hcl 0.4 Mg Cap) 0.8 mg PO [facility] Stop: 01/17/23 08:59 Last Admin: 12/18/22 08:30 Dose: 0.8 mg Vitamin D (Cholecalciferol 5,000 Units 125 Mcg Tab) 5,000 units PO [facility] Stop: 01/17/23 08:59 Last Admin: 12/18/22 08:30 Dose: 5,000 units Warfarin Sodium (Warfarin Sod 2.5 Mg Tab) 2.5 mg PO [id number]@1600 [facility] Stop: 01/16/23 21:41 Last Admin: 12/17/22 23:09 Dose: 2.5 mg Warfarin Sodium (Warfarin Sod 5 Mg Tab) 5 mg PO [id number]@1600 [facility] Stop: 01/17/23 15:59 (4) COPD (chronic obstructive pulmonary disease) COPD type: unspecified COPD Qualified Code(s): J44.9 - Chronic obstructive pulmonary disease, unspecified
[2022-12-18] MEDS ORDERED: FUROSEMIDE 40 MG/4 ML VIAL IV SCH (09:30)
[2022-12-18] MEDS ORDERED: FUROSEMIDE 40 MG/4 ML VIAL IV ONE (09:42)
[2022-12-18] MEDS ORDERED: EUCERIN CR 120 GM JAR EXT PRN (11:17)
[2022-12-18] MEDS: ACETAMINOPHEN 1,000 MG/100 ML VIAL IV PRN ×2 (11:57→21:59)
[2022-12-18] MEDS: methylPREDNISolone 40 MG in SYRINGE 0 ML IV SCH ×2 (11:57→20:19)
[2022-12-18] MEDS: CYCLOBENZAPRINE HCL 10 MG TAB PO PRN ×2 (11:58→20:39)
[2022-12-18] MEDS: LORazepam 0.5 MG TAB PO PRN (11:58)
--- NOTE | 2022-12-18 14:02 | Electroencephalogram ---
EEG Procedure Note Date of Service December 18, 2022 Start / End Times Start Time: 08:50 End Time: 09:10 Referring Physician Everardo Ibarra MD History AMS Home Medication List Medication Instructions Recorded Confirmed Type fluticasone propionate 50 2 spray intranasal DAILY 06/01/18 12/17/22 History mcg/actuation nasal spray,suspension aspirin 81 mg tablet,delayed 81 mg PO QAM 11/17/18 12/17/22 History release (Ecotrin Low Strength) nitroglycerin 0.4 mg sublingual 0.4 mg sublingual DIRECTED PRN 12/09/18 12/17/22 History tablet (Nitrostat) CHEST PAIN nystatin 100,000 unit/gram topical 1 applic topical TID PRN Skin 12/09/18 12/17/22 History powder Irritation polyethylene glycol 3350 17 gram 17 g PO QAM 12/09/18 12/17/22 History oral powder packet (Miralax) finasteride 5 mg tablet 5 mg PO QAM 03/03/19 12/17/22 History cyclobenzaprine 10 mg tablet 10 mg PO BID PRN Muscle Spasm 03/10/19 12/17/22 History metoprolol succinate 50 mg 75 mg PO BID 08/01/19 12/17/22 History tablet,extended release 24 hr spironolactone 25 mg tablet 25 mg PO QAM 08/01/19 12/17/22 History docusate sodium 100 mg capsule 100 mg PO BID 08/11/19 12/17/22 History ipratropium 0.5 mg-albuterol 3 mg 3 ml inhalation Q6H PRN Shortness 08/11/19 12/17/22 History (2.5 mg base)/3 mL nebulization Of Breath Or Wheezing soln atorvastatin 80 mg tablet 80 mg PO QPM 12/07/19 12/17/22 History folic acid 1 mg tablet 1 mg PO QAM 12/07/19 12/17/22 History furosemide 40 mg tablet (Lasix) 40 mg PO BID 12/07/19 12/17/22 History sennosides 8.6 mg tablet (senna) 8.6 mg PO DAILY PRN Constipation 12/07/19 12/17/22 History albuterol sulfate 90 mcg/actuation 2 puff inhalation Q4 PRN Dyspnea 02/17/20 12/17/22 History aerosol inhaler omeprazole 20 mg capsule,delayed 20 mg PO DAILYBB 04/14/20 12/17/22 History release gabapentin 800 mg tablet 800 mg PO TID 05/30/20 12/17/22 History duloxetine 60 mg capsule,delayed 60 mg PO DAILY 07/05/20 12/17/22 History release famotidine 20 mg tablet 20 mg PO DAILY 07/05/20 12/17/22 History buprenorphine HCl 8 mg sublingual 8 mg sublingual TID 10/31/20 12/17/22 History tablet glipizide 10 mg tablet 10 mg PO BID 01/12/21 12/17/22 History Lactobacillus acidoph-L.bulgaricus 1 tab PO TID #30 tabs 05/09/21 12/17/22 Rx 1 million cell chewable tablet (Lactinex) ferrous sulfate 325 mg (65 mg 325 mg PO QAM 10/24/21 12/17/22 History iron) tablet hydroxyzine HCl 25 mg tablet 25 mg PO QID PRN Anxiety 10/24/21 12/17/22 History magnesium oxide 400 mg (241.3 mg 400 mg PO DAILY 10/24/21 12/17/22 History magnesium) tablet urea 20 % topical cream 1 applic topical BID Dry Areas on 10/24/21 12/17/22 History (Ureacin-20) Soles and Legs ondansetron HCl 4 mg tablet 4 mg PO Q8H PRN NAUSEA/VOMITING 12/17/21 12/17/22 History benzonatate 100 mg capsule 100 mg PO TID PRN cough #10 caps 01/02/22 12/17/22 Rx isosorbide dinitrate 30 mg tablet 30 mg PO DAILY 02/19/22 12/17/22 History tamsulosin 0.4 mg capsule (Flomax) 0.8 mg PO QAM #180 caps 03/10/22 12/17/22 Rx guaifenesin 600 mg tablet, 1,200 mg PO BID 07/29/22 12/17/22 History extended release 12 hr (Mucinex) warfarin 5 mg tablet 5 mg PO 2XWK 07/29/22 12/17/22 History insulin aspart U-100 100 unit/mL 1 unit (0.01 mL) subcut TIDM #30 mL 08/05/22 12/17/22 Rx (3 mL) subcutaneous pen (Novolog FlexPen U-100 Insulin aspart) insulin glargine 100 unit/mL (3 50 unit (0.5 mL) SC HS 30 days #15 08/05/22 12/17/22 Rx mL) subcutaneous pen (Lantus mL Solostar U-100 Insulin) lorazepam 0.5 mg tablet 0.5 mg PO Q8 PRN Anxiety #6 tabs 08/05/22 12/17/22 Rx diclofenac sodium 1 % topical gel 2 g EXT BID #50 grams 10/22/22 12/17/22 Rx (Voltaren Arthritis Pain) dextromethorphan-guaifenesin 10 5 ml PO Q6H PRN cough #500 mL 11/15/22 12/17/22 Rx mg-100 mg/5 mL oral syrup potassium chloride 20 mEq 40 meq PO BID #60 tabs 11/15/22 12/17/22 Rx tablet,extended release warfarin 5 mg tablet 2.5 mg PO 5XWK 11/23/22 12/17/22 History cholecalciferol (vitamin D3) 125 5,000 unit PO QAM #30 tabs 11/30/22 12/17/22 Rx mcg (5,000 unit) tablet promethazine 12.5 mg tablet 12.5 mg PO BID PRN nausea and 12/07/22 12/17/22 Rx vomiting #10 tabs Inpatient Medication List Aspirin (Aspirin 81 Mg Ectab) 81 mg PO QAM [facility] Stop: 01/17/23 08:59 Last Admin: 12/18/22 08:31 Dose: 81 mg Documented By: SAUL Atorvastatin Calcium (Atorvastatin 40 Mg Tab) 80 mg PO QPM [facility] Stop: 01/16/23 21:41 Last Admin: 12/17/22 23:06 Dose: 80 mg Documented By: VAZQUEZ Cyclobenzaprine HCl (Cyclobenzaprine Hcl 10 Mg Tab) 10 mg PO BID PRN PRN Reason: Muscle Spasm Stop: 01/17/23 11:15 Last Admin: 12/18/22 11:58 Dose: 10 mg Documented By: SAUL Diclofenac Sodium (Diclofenac Sod 1% Gel 100 Gm Tube) 2 gm EXT BID [facility]; Protocol Stop: 01/16/23 21:41 Last Admin: 12/18/22 08:32 Dose: 2 gm Documented By: Admin: 12/17/22 23:07 Dose: 2 gm Documented By: VAZQUEZ Docusate Sodium (Docusate Sodium 100 Mg Cap) 100 mg PO BID [facility] Stop: 01/16/23 21:41 Last Admin: 12/18/22 08:37 Dose: 100 mg Documented By: Admin: 12/17/22 23:07 Dose: 100 mg Documented By: VAZQUEZ Duloxetine HCl (Duloxetine Hcl 60 Mg Cap) 60 mg PO DAILY [facility] Stop: 01/17/23 08:59 Last Admin: 12/18/22 08:30 Dose: 60 mg Documented By: SAUL Famotidine (Famotidine 20 Mg Tab) 20 mg PO DAILY [facility] Stop: 01/17/23 08:59 Last Admin: 12/18/22 08:31 Dose: 20 mg Documented By: SAUL Ferrous Sulfate (Ferrous Sulfate 325 Mg Tab) 325 mg PO DAILY [facility] Stop: 01/17/23 08:59 Last Admin: 12/18/22 08:30 Dose: 325 mg Documented By: SAUL Finasteride (Finasteride 5 Mg Tab) 5 mg PO QAM [facility] Stop: 01/17/23 08:59 Last Admin: 12/18/22 08:30 Dose: 5 mg Documented By: SAUL Fluticasone Propionate (Fluticasone Propionate Na Spr 16 Gm Btl) 2 sprays NA DAILY [facility] Stop: 01/17/23 08:59 Last Admin: 12/18/22 08:32 Dose: 2 sprays Documented By: SAUL Folic Acid (Folic Acid 1 Mg Tab) 1 mg PO QAM [facility] Stop: 01/17/23 08:59 Last Admin: 12/18/22 08:32 Dose: 1 mg Documented By: SAUL Furosemide (Furosemide 40 Mg Tab) 40 mg PO BID [facility] Stop: 01/17/23 08:59 Last Admin: 12/18/22 08:31 Dose: 40 mg Documented By: SAUL Piperacillin Sod/Tazobactam (Sod 4.5 gm/ Dextrose) 120 mls @ 30 mls/hr IV Q8H [facility]; Protocol Stop: 12/28/22 02:59 Last Admin: 12/18/22 11:57 Dose: 30 mls/hr Documented By: Infusion: 12/18/22 09:12 Dose: 0 mls/hr Documented By: Admin: 12/18/22 03:57 Dose: 30 mls/hr Documented By: VAZQUEZ Acetaminophen (Ofirmev) 1,000 mg in 100 mls @ 400 mls/hr IV Q8H PRN PRN Reason: Pain Stop: 12/21/22 11:16 Last Infusion: 12/18/22 13:05 Dose: 0 mls/hr Documented By: Admin: 12/18/22 11:57 Dose: 400 mls/hr Documented By: SAUL Methylprednisolone 40 mg/ (Syringe) 0.64 mls @ 1.5 mls/min IV BID [facility] Stop: 01/17/23 11:44 Last Admin: 12/18/22 11:57 Dose: 1.5 mls/min Documented By: SAUL Insulin Aspart (Insulin Aspart Per Unit Charge) 0 units SC ACHS [facility] Stop: 01/16/23 21:41 Last Admin: 12/18/22 08:37 Dose: 5 units Documented By: SAUL Co-signed By: DOLORES Admin: 12/17/22 23:20 Dose: Not Given Documented By: VAZQUEZ Isosorbide Dinitrate (Isosorbide Dinitrate 10 Mg Tab) 30 mg PO DAILY [facility] Stop: 01/17/23 08:59 Last Admin: 12/18/22 08:31 Dose: 30 mg Documented By: SAUL Lactobacillus Acidophilus (Advanced Probiotic 1250 Mg Capsule) 2 cap PO TID [facility] Stop: 01/17/23 08:59 Last Admin: 12/18/22 08:31 Dose: 2 cap Documented By: SAUL Lorazepam (Lorazepam 0.5 Mg Tab) 0.5 mg PO Q8H PRN PRN Reason: Anxiety Stop: 01/17/23 11:15 Last Admin: 12/18/22 11:58 Dose: 0.5 mg Documented By: SAUL Magnesium Oxide (Magnesium Oxide 400 Mg Tab) 400 mg PO DAILY [facility] Stop: 01/17/23 08:59 Last Admin: 12/18/22 08:31 Dose: 400 mg Documented By: SAUL Metoprolol Succinate (Metoprolol Succ 25mg Ext Rel Tab) 75 mg PO BID [facility] Stop: 01/16/23 21:41 Last Admin: 12/18/22 08:30 Dose: 75 mg Documented By: Admin: 12/17/22 23:10 Dose: 75 mg Documented By: VAZQUEZ Miscellaneous (Remove Nicoderm Patch) 1 each N/A DAILY@0859 [facility] Stop: 01/17/23 08:58 Last Admin: 12/18/22 08:30 Dose: Not Given Documented By: SAUL Nicotine (Nicotine 21 Mg/24 Hr Tdsy) 21 mg TD [facility] Stop: 01/17/23 08:59 Last Admin: 12/18/22 08:30 Dose: 21 mg Documented By: SAUL Ondansetron HCl (Ondansetron Inj 2 Mg/Ml 2 Ml Vial) 4 mg IV Q6H PRN PRN Reason: Nausea Stop: 01/16/23 21:41 Last Admin: 12/18/22 10:30 Dose: 4 mg Documented By: SAUL Pantoprazole Sodium (Pantoprazole 40 Mg Tab) 40 mg PO DAILYBB [facility] Stop: 01/17/23 06:29 Last Admin: 12/18/22 05:58 Dose: 40 mg Documented By: VAZQUEZ Polyethylene Glycol (Polyethylene (Miralax) 17 Gm Pack) 17 gm PO [facility] Stop: 01/17/23 08:59 Last Admin: 12/18/22 08:30 Dose: 17 gm Documented By: SAUL Potassium Chloride (Potassium Chloride Crtab 20 Meq Tabcr) 40 meq PO BID [facility] Stop: 01/17/23 08:59 Last Admin: 12/18/22 08:30 Dose: 40 meq Documented By: SAUL Spironolactone (Spironolactone 25 Mg Tab) 25 mg PO [facility] Stop: 01/17/23 08:59 Last Admin: 12/18/22 08:31 Dose: 25 mg Documented By: SAUL Tamsulosin HCl (Tamsulosin Hcl 0.4 Mg Cap) 0.8 mg PO [facility] Stop: 01/17/23 08:59 Last Admin: 12/18/22 08:30 Dose: 0.8 mg Documented By: SAUL Vitamin D (Cholecalciferol 5,000 Units 125 Mcg Tab) 5,000 units PO [facility] Stop: 01/17/23 08:59 Last Admin: 12/18/22 08:30 Dose: 5,000 units Documented By: SAUL Warfarin Sodium (Warfarin Sod 2.5 Mg Tab) 2.5 mg PO SuTuWeThSa@1600 [facility] Stop: 01/16/23 21:41 Last Admin: 12/17/22 23:09 Dose: 2.5 mg Documented By: VAZQUEZ Discontinued Medications Acetaminophen (Acetaminophen 325 Mg Tab) 650 mg PO Q4H PRN PRN Reason: Pain or Fever Stop: 01/16/23 21:41 Last Admin: 12/17/22 23:14 Dose: 650 mg Documented By: VAZQUEZ Furosemide (Furosemide 40 Mg/4 Ml Vial) 40 mg IV BID [facility] Stop: 01/17/23 09:29 Last Admin: 12/18/22 09:44 Dose: 40 mg Documented By: SAUL Furosemide (Furosemide 40 Mg/4 Ml Vial) Confirm Administered Dose 40 mg IV .STK- MED ONE Stop: 12/18/22 09:43 Last Admin: 12/18/22 09:43 Dose: 40 mg Documented By: SAUL Guaifenesin (Guaifenesin 600 Mg Tabcr) 1,200 mg PO BID [facility] Stop: 01/16/23 21:41 Last Admin: 12/18/22 08:31 Dose: 1,200 mg Documented By: Admin: 12/17/22 23:08 Dose: 1,200 mg Documented By: VAZQUEZ Sodium Chloride (Nss 1000ml) 1,000 mls @ 999 mls/hr IV .Q1H1M ONE Stop: 12/17/22 17:35 Last Infusion: 12/17/22 20:19 Dose: 0 mls/hr Documented By: Admin: 12/17/22 17:45 Dose: 999 mls/hr Documented By: NANCY Piperacillin Sod/Tazobactam Sod (Zosyn) 4.5 gm in 120 mls @ 240 mls/hr IV NOW ONE Stop: 12/17/22 18:36 Last Infusion: 12/17/22 20:19 Dose: 0 mls/hr Documented By: Admin: 12/17/22 18:58 Dose: 240 mls/hr Documented By: NANCY Miscellaneous (Urea [Ureacin-20] 20 % Cream - Order Awaiting Action) 1 each N/A QS [facility] Stop: 01/17/23 00:00 Last Admin: 12/18/22 08:33 Dose: Not Given Documented By: Admin: 12/17/22 23:59 Dose: 1 each Documented By: VAZQUEZ Miscellaneous (Patient's Height &/Or Weight Needed) 1 each N/A Q1H [facility] Stop: 01/16/23 22:14 Last Admin: 12/18/22 08:33 Dose: Not Given Documented By: Admin: 12/18/22 08:27 Dose: 1 each Documented By: Admin: 12/18/22 05:59 Dose: 1 each Documented By: Admin: 12/18/22 05:58 Dose: 1 each Documented By: Admin: 12/18/22 05:58 Dose: 1 each Documented By: Admin: 12/18/22 03:57 Dose: 1 each Documented By: Admin: 12/18/22 03:57 Dose: 1 each Documented By: Admin: 12/18/22 00:31 Dose: 1 each Documented By: Admin: 12/17/22 23:59 Dose: 1 each Documented By: Admin: 12/17/22 23:17 Dose: 1 each Documented By: Admin: 12/17/22 23:16 Dose: 1 each Documented By: CF Potassium Chloride (Potassium Chloride Crtab 20 Meq Tabcr) 40 meq PO NOW [facility] Stop: 12/17/22 20:38 Last Admin: 12/17/22 20:57 Dose: 40 meq Documented By: CGK Description This is a 21 electrode EEG with a single channel dedicated to limited EKG. The electrodes were placed in accordance with the International 10-20 system. Interpretation Throughout this EEG recording, the patient is confused and disoriented. There is no clinical seizure or seizure-like activities. Background activity shows diffuse slowing which is composed of intermittent, 2 to 3 Hz, moderate amplitude frontal delta, intermixed with generalized, 5 to 6 Hz, moderate amplitude theta waveforms. There is no distinctive posterior rhythm. Sleep recording is not captured. Photic stimulation vaguely induce posterior driving responses bilaterally. Hyperventilation is not attempted. There are no electrographic seizures, epileptogenic discharges or asymmetries. Impression: This EEG, recorded in wakefulness only, is abnormal due to diffuse slowing, consistent with bihemispheric dysfunction, as seen in encephalopathies. There is no electrographic seizures or epileptogenic discharge.
--- NOTE | 2022-12-18 14:46 | Electrocardiogram Report ---
Test Reason : Blood Pressure : / mmHG Vent. Rate : 071 BPM Atrial Rate : 071 BPM P-R Int : 156 ms QRS Dur : 100 ms QT Int : 402 ms P-R-T Axes : 052 048 066 degrees QTc Int : 436 ms Normal sinus rhythm Low voltage QRS Nonspecific ST abnormality Abnormal ECG When compared with ECG of 25-NOV-2022 05:36, No significant change was found Confirmed by tSanton Porter ([id number]) on 12/18/2022 2:46:19 PM Referred By: REFERRED SELF Confirmed By:Stanton Porter
[2022-12-18] MEDS: buprenorphine HCL 8 MG SUBL SL SCH ×2 (15:00→20:39)
[2022-12-18] MEDS: WARFARIN SOD 5 MG TAB PO SCH (15:00)
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
--- NOTE | 2022-12-18 16:35 | Hospitalist Progress Note ---
Date of Service December 18, 2022 Assessment & Plan (1) AMS (altered mental status): Plan: Was admitted with acute confusion which resolved since admission Likely secondary to medications and infection has to be ruled out Appreciate neurology input and recommendation Seems to be at his baseline as of this morning (2) Acute UTI (urinary tract infection): Plan: Has indwelling Lloyd catheter UA is suggestive of infection but bacteria is negative Started on intravenous Zosyn and will wait for culture and sensitivity (3) Chronic indwelling Lloyd catheter: Plan: As above (4) Syncope and collapse: Plan: Has been falling at home with questionable loss of consciousness for a few seconds as per the patient and significant other No arrhythmias on the monitor Appreciate cardiology input and recommendation EEG has been negative for any seizure activity (5) Peripheral polyneuropathy: Plan: Has peripheral neuropathy likely secondary to diabetes (6) COPD exacerbation: Plan: History of COPD with ongoing smoking Has been on nebulized bronchodilator We will add intravenous Solu-Medrol (7) History of pulmonary embolism: Plan: Has been on Coumadin INR is therapeutic We will continue with Coumadin (8) 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 Admission and Anticipated Discharge Date Admission Date: December 17, 2022 Subjective 12/18/2022 The patient was seen and examined in telemetry unit He was admitted with frequent falls at home with acute confusion without fever and or chills He has been feeling better since admission but complains to have more pain at the back without radiation Complains of wheezing with more shortness of breath but has been saturating normally on room air Review of Systems Review of Systems: All systems reviewed and are unremarkable except as noted below Respiratory: Minimal shortness of breath at rest with wheezing Physical Exam Physical Exam: Lying in bed and crying in pain Constitutional: well developed, well nourished, + ill appearing and + morbidly obese Eyes: PERRL, conjunctivae normal, anicteric sclerae ENMT: external ear and nose normal, oropharynx normal Neck: trachea midline, no thyromegaly Respiratory: + respiratory distress (Minimal distress at rest) Auscultation: + diminished lung sounds, + crackles (Bibasilar crackles) and + wheezes (Moderate wheezing all over) Cardiovascular: Rate/Rhythm: regular rate and regular rhythm; not tachycardic Heart Sounds: normal S1 and normal S2; no murmur Extremities: + edema (1+ edema, chronic and bilateral with chronic skin changes) Gastrointestinal (Abdomen): Inspection/Auscultation: + abdomen distended and normal bowel sounds Percussion/Palpation: abdomen soft; abdomen nontender Musculoskeletal: No acute arthritis involving any of the joint Neurologic: Alert, 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. Moving all limbs without any focal neurodeficit Lymphatic: no cervical or axillary lymphadenopathy Results & Data Results & Data Vital Signs (Past 12 Hours) Vital Signs Temp Pulse Pulse Resp BP Pulse Ox O2 Del Method 12/18/22 15:51 36.9 C 89 18 123/83 96 Room Air 12/18/22 15:23 84 12/18/22 12:00 36.6 C 84 22 129/73 97 Nasal Cannula 12/18/22 08:00 36.7 C 69 20 144/77 H 97 Nasal Cannula 12/18/22 07:30 66 O2 Flow Rate 12/18/22 15:51 12/18/22 15:23 12/18/22 12:00 3 12/18/22 08:00 4 12/18/22 07:30 Laboratory Results Short CBC 12/17/22 12/18/22 Range/Units 16:40 05:34 WBC 17.08 H 16.81 H (4.8-10.8) K/ul Hgb 14.0 13.5 L (14.0-18.0) g/dl Hct 42.8 42.6 (42.0-52.0) % Plt Count 246 250 (130-400) K/uL BMP 12/17/22 12/17/22 12/18/22 16:40 18:20 04:56 Sodium Cancelled 138 139 Potassium Cancelled 3.5 3.8 Chloride Cancelled 98 100 Carbon Dioxide Cancelled 35 H 33 H BUN Cancelled 12 12 Creatinine Cancelled 0.81 0.88 Glucose Cancelled 126 H 126 H Calcium Cancelled 9.0 9.0 Liver Function 12/17/22 12/17/22 Range/Units 16:40 18:20 Total Bilirubin Cancelled 0.9 AST Cancelled 15 ALT Cancelled 13 Alkaline Phosphatase Cancelled 103 Albumin Cancelled 3.5 Urine 12/17/22 Range/Units Unknown Urine Color Yellow Urine Appearance Clear (Clear) Urine pH 8.0 H (4.5-7.5) Ur Specific [place] 1.007 (1.000-1.030) Urine Protein Negative (Negative) Urine Glucose (UA) Negative (Negative) Medications Administered Current Inpatient Medications Albuterol (Albuterol Hfa 8 Gm Inhaler) 2 puffs INH Q4R PRN PRN Reason: Dyspnea Stop: 01/16/23 21:41 Albuterol (Albut/Ipratrop 3mg/0.5mg Neb 3 Ml Vial) 3 ml INH Q6H PRN; Protocol PRN Reason: Shortness Of Breath Or Wheezing Stop: 01/16/23 21:41 Aspirin (Aspirin 81 Mg Ectab) 81 mg PO QAM [facility] Stop: 01/17/23 08:59 Last Admin: 12/18/22 08:31 Dose: 81 mg Atorvastatin Calcium (Atorvastatin 40 Mg Tab) 80 mg PO QPM [facility] Stop: 01/16/23 21:41 Last Admin: 12/17/22 23:06 Dose: 80 mg Benzonatate (Benzonatate 100 Mg Capsule) 100 mg PO TID PRN PRN Reason: cough Stop: 01/16/23 21:41 Buprenorphine HCl (Buprenorphine Hcl 8 Mg Subl) 8 mg SL TID [facility] Stop: 01/17/23 14:44 Last Admin: 12/18/22 15:00 Dose: 8 mg Cyclobenzaprine HCl (Cyclobenzaprine Hcl 10 Mg Tab) 10 mg PO BID PRN PRN Reason: Muscle Spasm Stop: 01/17/23 11:15 Last Admin: 12/18/22 11:58 Dose: 10 mg Dextrose (Dextrose 50% 50 Ml Syringe) 25 - 50 ml IV UD PRN; Protocol PRN Reason: Hypoglycemia Protocol Stop: 01/16/23 21:41 Diclofenac Sodium (Diclofenac Sod 1% Gel 100 Gm Tube) 2 gm EXT BID [facility]; Protocol Stop: 01/16/23 21:41 Last Admin: 12/18/22 08:32 Dose: 2 gm Docusate Sodium (Docusate Sodium 100 Mg Cap) 100 mg PO BID [facility] Stop: 01/16/23 21:41 Last Admin: 12/18/22 08:37 Dose: 100 mg Duloxetine HCl (Duloxetine Hcl 60 Mg Cap) 60 mg PO DAILY [facility] Stop: 01/17/23 08:59 Last Admin: 12/18/22 08:30 Dose: 60 mg Famotidine (Famotidine 20 Mg Tab) 20 mg PO DAILY [facility] Stop: 01/17/23 08:59 Last Admin: 12/18/22 08:31 Dose: 20 mg Ferrous Sulfate (Ferrous Sulfate 325 Mg Tab) 325 mg PO DAILY [facility] Stop: 01/17/23 08:59 Last Admin: 12/18/22 08:30 Dose: 325 mg Finasteride (Finasteride 5 Mg Tab) 5 mg PO QAM [facility] Stop: 01/17/23 08:59 Last Admin: 12/18/22 08:30 Dose: 5 mg Fluticasone Propionate (Fluticasone Propionate Na Spr 16 Gm Btl) 2 sprays NA DAILY [facility] Stop: 01/17/23 08:59 Last Admin: 12/18/22 08:32 Dose: 2 sprays Folic Acid (Folic Acid 1 Mg Tab) 1 mg PO QAM [facility] Stop: 01/17/23 08:59 Last Admin: 12/18/22 08:32 Dose: 1 mg Furosemide (Furosemide 40 Mg Tab) 40 mg PO BID [facility] Stop: 01/17/23 08:59 Last Admin: 12/18/22 08:31 Dose: 40 mg Furosemide (Furosemide 40 Mg/4 Ml Vial) 40 mg IV BID17 [facility] Stop: 01/17/23 09:29 Glucagon (Glucagon For Inj 1 Mg Vial) 1 mg SQ UD PRN; Protocol PRN Reason: Hypoglycemia Protocol Stop: 01/16/23 21:41 Glucose (Glucose 10 Tab/Tube) 4 - 8 tab PO UD PRN; Protocol PRN Reason: Hypoglycemia Treatment Stop: 01/16/23 21:41 Glucose (Glucose 40% Gel 15 Gm Tube) 15 - 30 gm PO UD PRN; Protocol PRN Reason: Hypoglycemia Protocol Stop: 01/16/23 21:41 Guaifenesin/Dextromethorphan (Guaifenesin/Dextrom Syrup 100mg/10mg 5ml Udc) 5 ml PO Q6H PRN PRN Reason: cough Stop: 01/17/23 11:15 Hydroxyzine HCl (Hydroxyzine Hcl 25 Mg Tab) 25 mg PO QID PRN PRN Reason: Anxiety Stop: 01/16/23 21:41 Piperacillin Sod/Tazobactam (Sod 4.5 gm/ Dextrose) 120 mls @ 30 mls/hr IV Q8H [facility]; Protocol Stop: 12/28/22 02:59 Last Admin: 12/18/22 11:57 Dose: 30 mls/hr Acetaminophen (Ofirmev) 1,000 mg in 100 mls @ 400 mls/hr IV Q8H PRN PRN Reason: Pain Stop: 12/21/22 11:16 Last Infusion: 12/18/22 13:05 Dose: Infused Methylprednisolone 40 mg/ (Syringe) 0.64 mls @ 1.5 mls/min IV BID [facility] Stop: 01/17/23 11:44 Last Admin: 12/18/22 11:57 Dose: 1.5 mls/min Insulin Aspart (Insulin Aspart Per Unit Charge) 0 units SC ACHS [facility] Stop: 01/16/23 21:41 Last Admin: 12/18/22 14:00 Dose: 4 units Insulin Glargine (Lantus Per Unit Charge) 50 units SQ HS [facility] Stop: 01/17/23 20:59 Isosorbide Dinitrate (Isosorbide Dinitrate 10 Mg Tab) 30 mg PO DAILY [facility] Stop: 01/17/23 08:59 Last Admin: 12/18/22 08:31 Dose: 30 mg Lactobacillus Acidophilus (Advanced Probiotic 1250 Mg Capsule) 2 cap PO TID [facility] Stop: 01/17/23 08:59 Last Admin: 12/18/22 13:56 Dose: 2 cap Lorazepam (Lorazepam 0.5 Mg Tab) 0.5 mg PO Q8H PRN PRN Reason: Anxiety Stop: 01/17/23 11:15 Last Admin: 12/18/22 11:58 Dose: 0.5 mg Magnesium Oxide (Magnesium Oxide 400 Mg Tab) 400 mg PO DAILY [facility] Stop: 01/17/23 08:59 Last Admin: 12/18/22 08:31 Dose: 400 mg Metoprolol Succinate (Metoprolol Succ 25mg Ext Rel Tab) 75 mg PO BID [facility] Stop: 01/16/23 21:41 Last Admin: 12/18/22 08:30 Dose: 75 mg Miscellaneous (Carbohydrates For Hypoglycemia ) 15 - 30 gm PO UD PRN PRN Reason: Hypoglycemia Protocol Stop: 01/16/23 21:41 Miscellaneous (Remove Nicoderm Patch) 1 each N/A DAILY@0859 [facility] Stop: 01/17/23 08:58 Last Admin: 12/18/22 08:30 Dose: Not Given Multi-Ingredient Cream (Eucerin Cr 120 Gm Jar) 1 appln EXT BID PRN PRN Reason: DRY SKIN Stop: 01/17/23 11:16 Nicotine (Nicotine 21 Mg/24 Hr Tdsy) 21 mg TD QAM [facility] Stop: 01/17/23 08:59 Last Admin: 12/18/22 08:30 Dose: 21 mg Nitroglycerin (Nitroglycerin Sl 0.4 Mg/Tab Tab) 0.4 mg SL UD PRN PRN Reason: Chest Pain Stop: 01/16/23 21:41 Nystatin (Nystatin Powder 15gm Btl) 1 appln EXT TID PRN PRN Reason: Skin Irritation Stop: 01/16/23 21:41 Ondansetron HCl (Ondansetron Inj 2 Mg/Ml 2 Ml Vial) 4 mg IV Q6H PRN PRN Reason: Nausea Stop: 01/16/23 21:41 Last Admin: 12/18/22 10:30 Dose: 4 mg Pantoprazole Sodium (Pantoprazole 40 Mg Tab) 40 mg PO DAILYBB [facility] Stop: 01/17/23 06:29 Last Admin: 12/18/22 05:58 Dose: 40 mg Polyethylene Glycol (Polyethylene (Miralax) 17 Gm Pack) 17 gm PO DAILY PRN PRN Reason: Constipation Stop: 01/16/23 21:41 Polyethylene Glycol (Polyethylene (Miralax) 17 Gm Pack) 17 gm PO QAM [facility] Stop: 01/17/23 08:59 Last Admin: 12/18/22 08:30 Dose: 17 gm Potassium Chloride (Potassium Chloride Crtab 20 Meq Tabcr) 40 meq PO BID [facility] Stop: 01/17/23 08:59 Last Admin: 12/18/22 08:30 Dose: 40 meq Promethazine HCl (Promethazine Hcl 25 Mg Tab) 12.5 mg PO BID PRN PRN Reason: nausea and vomiting Stop: 01/16/23 21:41 Sennosides (Senna 8.6 Mg Tab) 8.6 mg PO DAILY PRN PRN Reason: Constipation Stop: 01/16/23 21:41 Spironolactone (Spironolactone 25 Mg Tab) 25 mg PO [facility] Stop: 01/17/23 08:59 Last Admin: 12/18/22 08:31 Dose: 25 mg Tamsulosin HCl (Tamsulosin Hcl 0.4 Mg Cap) 0.8 mg PO [facility] Stop: 01/17/23 08:59 Last Admin: 12/18/22 08:30 Dose: 0.8 mg Vitamin D (Cholecalciferol 5,000 Units 125 Mcg Tab) 5,000 units PO [facility] Stop: 01/17/23 08:59 Last Admin: 12/18/22 08:30 Dose: 5,000 units Warfarin Sodium (Warfarin Sod 2.5 Mg Tab) 2.5 mg PO [id number]@1600 [facility] Stop: 01/16/23 21:41 Last Admin: 12/17/22 23:09 Dose: 2.5 mg Warfarin Sodium (Warfarin Sod 5 Mg Tab) 5 mg PO [id number]@1600 [facility] Stop: 01/17/23 15:59 Last Admin: 12/18/22 15:00 Dose: 5 mg (9) 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
[2022-12-18] MEDS: FUROSEMIDE 40 MG/4 ML VIAL IV SCH (17:10)
[2022-12-18] MEDS: ATORVASTATIN 40 MG TAB PO SCH (20:18)
[2022-12-18] MEDS: LANTUS PER UNIT CHARGE SQ SCH (20:40)
[2022-12-19] MEDS: LORazepam 0.5 MG TAB PO PRN (00:43)
[2022-12-19] MEDS: PIPERACILLIN/TAZOBACTAM 4.5 GM in DEXTROSE 5% 100 ML IV SCH ×3 (03:42→18:18)
[2022-12-19 06:32] LABS: Basophils # (auto) 0.02 K/uL (0-0.2); Basophils % (auto) 0.1 %; Hemoglobin 13.6 g/dl (14.0-18.0); Immature Granulocytes # (auto) 0.14 K/uL (0.01-0.20); Immature Granulocytes % (auto) 0.8 %; Lymphocytes # (auto) 1.64 K/uL (1.2-3.4); Lymphocytes % (auto) 9.7 %; Mean Corpuscular Hemoglobin 27.6 pg (25.0-34.0); Mean Corpuscular Hgb Conc 32.4 g/dL (32.0-36.0); Mean Corpuscular Volume 85.4 fL (80.0-100.0); Mean Platelet Volume 9.8 fL (9.4-12.4); Monocytes # (auto) 0.55 K/uL (0.11-0.59); Monocytes % (auto) 3.3 %; Neutrophils # (auto) 14.51 K/uL (1.40-6.50); Neutrophils % (auto) 86.1 %; Platelet Count 271 K/uL (130-400); RDW Coefficient of Variation 17.7 % (11.5-14.5); RDW Standard Deviation 54.4 fL (36.4-46.3); Red Blood Count 4.92 M/uL (4.70-6.10); White Blood Count 16.86 K/ul (4.8-10.8)
[2022-12-19 06:49] LABS: Albumin Globulin Ratio 1.1 (0.9-2); Albumin Level 3.5 gm/dl (3.4-5.0); BUN Creatinine Ratio 14.9 (10-20); Bilirubin,Total 0.7 mg/dl (0.2-1.0); Calcium 9.8 mg/dl (8.6-10.3); Creatinine Clr Calc Pharmacy 165.7 ml/min; Est GFR (African American) 107.6 ml/min; Est GFR (Non-African American) 92.8 ml/min; Globulin 3.2 gm/dl (2.5-4.0); Potassium 4.3 mmol/L (3.5-5.1); Total Protein 6.7 gm/dl (6.0-8.3)
[2022-12-19 07:47] LABS: INR 3.8 (0.9-1.1); Prothrombin Time 37.7 Seconds (9.0-12.0)
[2022-12-19] MEDS: FAMOTIDINE 20 MG TAB PO SCH (08:43)
[2022-12-19] MEDS: FERROUS SULFATE 325 MG TAB PO SCH (08:43)
[2022-12-19] MEDS: TAMSULOSIN HCL 0.4 MG CAP PO SCH (08:43)
[2022-12-19] MEDS: ADVANCED PROBIOTIC 1250 MG CAPSULE PO SCH ×3 (08:43→20:48)
[2022-12-19] MEDS: DULoxetine HCL 60 MG CAP PO SCH (08:43)
[2022-12-19] MEDS: MAGNESIUM OXIDE 400 MG TAB PO SCH (08:43)
[2022-12-19] MEDS: FINASTERIDE 5 MG TAB PO SCH (08:43)
[2022-12-19] MEDS: FOLIC ACID 1 MG TAB PO SCH (08:43)
[2022-12-19] MEDS: SPIRONOLACTONE 25 MG TAB PO SCH (08:43)
[2022-12-19] MEDS: CHOLECALCIFEROL 5,000 UNITS 125 MCG TAB PO SCH (08:43)
[2022-12-19] MEDS: ISOSORBIDE DINITRATE 10 MG TAB PO SCH (08:43)
[2022-12-19] MEDS: ASPIRIN 81 MG ECTAB PO SCH (08:43)
[2022-12-19] MEDS: DOCUSATE SODIUM 100 MG CAP PO SCH ×2 (08:43→20:47)
[2022-12-19] MEDS: methylPREDNISolone 40 MG in SYRINGE 0 ML IV SCH ×2 (08:44→20:46)
[2022-12-19] MEDS: METOPROLOL SUCC 25MG EXT REL TAB PO SCH ×2 (08:44→20:49)
[2022-12-19] MEDS: POTASSIUM CHLORIDE CRTAB 20 MEQ TABCR PO SCH ×2 (08:44→20:49)
[2022-12-19] MEDS: guaiFENesin/DEXTROM SYRUP 100MG/10MG 5ML UDC PO PRN (08:44)
[2022-12-19] MEDS: POLYETHYLENE (MIRALAX) 17 GM PACK PO SCH (08:45)
[2022-12-19] MEDS: FLUTICASONE PROPIONATE NA SPR 16 GM BTL SCH (08:45)
--- NOTE | 2022-12-19 08:50 | Electrocardiogram Report ---
Test Reason : Blood Pressure : / mmHG Vent. Rate : 071 BPM Atrial Rate : 071 BPM P-R Int : 164 ms QRS Dur : 110 ms QT Int : 402 ms P-R-T Axes : 042 048 063 degrees QTc Int : 436 ms Normal sinus rhythm Incomplete right bundle branch block Normal ECG When compared with ECG of 18-DEC-2022 05:25, No significant change was found Confirmed by Da Browning ([id number]) on 12/19/2022 8:50:31 AM Referred By: REFERRED SELF Confirmed By:Da Browning
[2022-12-19] MEDS: ACETAMINOPHEN 1,000 MG/100 ML VIAL IV PRN ×2 (09:04→17:59)
[2022-12-19] MEDS: buprenorphine HCL 8 MG SUBL SL SCH ×3 (09:05→20:52)
[2022-12-19] MEDS: CYCLOBENZAPRINE HCL 10 MG TAB PO PRN ×2 (09:05→21:50)
[2022-12-19] MEDS: FUROSEMIDE 40 MG/4 ML VIAL IV SCH ×2 (09:05→17:22)
[2022-12-19] MEDS: INSULIN ASPART PER UNIT CHARGE SC SCH ×4 (09:06→20:52)
[2022-12-19] MEDS: DICLOFENAC SOD 1% GEL 100 GM TUBE EXT SCH ×2 (09:06→20:46)
[2022-12-19] MEDS: NICOTINE 21 MG/24 HR TDSY TD SCH (09:06)
--- NOTE | 2022-12-19 10:11 | Cardiology Progress Note ---
Date of Service December 19, 2022 Assessment & Plan (1) Noncompliance: (2) Chronic indwelling Lloyd catheter: (3) CHF (congestive heart failure): (4) COPD (chronic obstructive pulmonary disease): (5) Physical deconditioning: (6) (HFpEF) heart failure with preserved ejection fraction: (7) AMS (altered mental status): Plan The patient has had a good diuresis overnight. I think an additional 24 hours of IV Lasix and the reassess tomorrow. At present I still believe that he has quite a bit of fluid on board. Admission and Anticipated Discharge Date Admission Date: December 17, 2022 Review of Systems Review of Systems: Review of Systems: See HPI for pertinent positives. All other 10 point review of systems are negative.Except the patient admits to having some shortness of breath recently. Physical Exam Physical Exam: General: no acute distress and stated age Head: normocephalic, no masses, lesions, tenderness or abnormalities Eyes: conjunctiva are pink and non-injected, sclera clear Neck: supple, no adenopathy, no bruits, normal jugular venous pulse, no hepatojugular reflux Chest: normal shape and normal respiratory effort Lungs: Wheezing without rales Cardiac Exam: - regular rate & rhythm, no murmurs gallops or rubs - normal S1, normal S2 Pulses: 2(+) throughout Abdomen: abdomen soft, non-tender, no abnormal masses and no hepatosplenomegaly Musculoskeletal: no gait disturbance, no joint inflammation, no deforming arthritis Extremities: no edema and no cyanosis Neuro: grossly normal exam Results & Data Vital Signs (Past 12 Hours) Vital Signs Temp Pulse Pulse Resp BP Pulse Ox O2 Del Method 12/19/22 08:43 36.9 C 98 H 18 161/68 H 98 Nasal Cannula 12/19/22 06:02 71 12/19/22 00:00 85 12/19/22 03:43 36.5 C 75 19 144/74 H 96 Nasal Cannula 12/19/22 00:30 36.7 C 20 96 Nasal Cannula O2 Flow Rate 12/19/22 08:43 4 12/19/22 06:02 12/19/22 00:00 12/19/22 03:43 4 12/19/22 00:30 4 Laboratory Results Laboratory Results - last 24 hr 12/18/22 12/18/22 12/18/22 11:33 11:57 16:48 WBC RBC Hgb Hct MCV MCH MCHC RDW Std Deviation RDW Coeff of Megan Plt Count MPV Immature Gran % (Auto) Neut % (Auto) Lymph % (Auto) Jackson % (Auto) Eos % (Auto) Baso % (Auto) Neut # (Auto) Lymph # (Auto) Jackson # (Auto) Eos # (Auto) Baso # (Auto) Immature Gran # (Auto) PT INR Sodium Potassium Chloride Carbon Dioxide Anion Gap BUN Creatinine Est Cr Clr Drug Dosing Est GFR ( Amer) Est GFR (Non-Af Amer) BUN/Creatinine Ratio Glucose POC Glucose 146 H 160 H Calcium Total Bilirubin AST ALT Alkaline Phosphatase Troponin I High Sens 5.9 D Total Protein Albumin Globulin Albumin/Globulin Ratio 12/18/22 12/19/22 12/19/22 20:23 06:12 06:12 WBC 16.86 H RBC 4.92 Hgb 13.6 L Hct 42.0 MCV 85.4 MCH 27.6 MCHC 32.4 RDW Std Deviation 54.4 H RDW Coeff of Megan 17.7 H Plt Count 271 MPV 9.8 Immature Gran % (Auto) 0.8 Neut % (Auto) 86.1 Lymph % (Auto) 9.7 Jackson % (Auto) 3.3 Eos % (Auto) 0.0 Baso % (Auto) 0.1 Neut # (Auto) 14.51 H Lymph # (Auto) 1.64 Jackson # (Auto) 0.55 Eos # (Auto) 0.00 Baso # (Auto) 0.02 Immature Gran # (Auto) 0.14 PT INR Sodium 136 Potassium 4.3 Chloride 98 Carbon Dioxide 34 H Anion Gap 4 BUN 14 Creatinine 0.94 Est Cr Clr Drug Dosing 165.7 Est GFR ( Amer) 107.6 Est GFR (Non-Af Amer) 92.8 BUN/Creatinine Ratio 14.9 Glucose 184 H POC Glucose 189 H Calcium 9.8 Total Bilirubin 0.7 AST 11 L ALT 12 Alkaline Phosphatase 93 Troponin I High Sens Total Protein 6.7 Albumin 3.5 Globulin 3.2 Albumin/Globulin Ratio 1.1 12/19/22 12/19/22 06:12 08:15 WBC RBC Hgb Hct MCV MCH MCHC RDW Std Deviation RDW Coeff of Megan Plt Count MPV Immature Gran % (Auto) Neut % (Auto) Lymph % (Auto) Jackson % (Auto) Eos % (Auto) Baso % (Auto) Neut # (Auto) Lymph # (Auto) Jackson # (Auto) Eos # (Auto) Baso # (Auto) Immature Gran # (Auto) PT 37.7 H INR 3.8 H Sodium Potassium Chloride Carbon Dioxide Anion Gap BUN Creatinine Est Cr Clr Drug Dosing Est GFR ( Amer) Est GFR (Non-Af Amer) BUN/Creatinine Ratio Glucose POC Glucose 169 H Calcium Total Bilirubin AST ALT Alkaline Phosphatase Troponin I High Sens Total Protein Albumin Globulin Albumin/Globulin Ratio Medications Administered Current Inpatient Medications Albuterol (Albuterol Hfa 8 Gm Inhaler) 2 puffs INH Q4R PRN PRN Reason: Dyspnea Stop: 01/16/23 21:41 Albuterol (Albut/Ipratrop 3mg/0.5mg Neb 3 Ml Vial) 3 ml INH Q6H PRN; Protocol PRN Reason: Shortness Of Breath Or Wheezing Stop: 01/16/23 21:41 Aspirin (Aspirin 81 Mg Ectab) 81 mg PO QAM [facility] Stop: 01/17/23 08:59 Last Admin: 12/19/22 08:43 Dose: 81 mg Atorvastatin Calcium (Atorvastatin 40 Mg Tab) 80 mg PO QPM [facility] Stop: 01/16/23 21:41 Last Admin: 12/18/22 20:18 Dose: 80 mg Benzonatate (Benzonatate 100 Mg Capsule) 100 mg PO TID PRN PRN Reason: cough Stop: 01/16/23 21:41 Buprenorphine HCl (Buprenorphine Hcl 8 Mg Subl) 8 mg SL TID [facility] Stop: 01/17/23 14:44 Last Admin: 12/19/22 09:05 Dose: 8 mg Cyclobenzaprine HCl (Cyclobenzaprine Hcl 10 Mg Tab) 10 mg PO BID PRN PRN Reason: Muscle Spasm Stop: 01/17/23 11:15 Last Admin: 12/19/22 09:05 Dose: 10 mg Dextrose (Dextrose 50% 50 Ml Syringe) 25 - 50 ml IV UD PRN; Protocol PRN Reason: Hypoglycemia Protocol Stop: 01/16/23 21:41 Diclofenac Sodium (Diclofenac Sod 1% Gel 100 Gm Tube) 2 gm EXT BID [facility]; Protocol Stop: 01/16/23 21:41 Last Admin: 12/19/22 09:06 Dose: 2 gm Docusate Sodium (Docusate Sodium 100 Mg Cap) 100 mg PO BID [facility] Stop: 01/16/23 21:41 Last Admin: 12/19/22 08:43 Dose: 100 mg Duloxetine HCl (Duloxetine Hcl 60 Mg Cap) 60 mg PO DAILY [facility] Stop: 01/17/23 08:59 Last Admin: 12/19/22 08:43 Dose: 60 mg Famotidine (Famotidine 20 Mg Tab) 20 mg PO DAILY [facility] Stop: 01/17/23 08:59 Last Admin: 12/19/22 08:43 Dose: 20 mg Ferrous Sulfate (Ferrous Sulfate 325 Mg Tab) 325 mg PO DAILY [facility] Stop: 01/17/23 08:59 Last Admin: 12/19/22 08:43 Dose: 325 mg Finasteride (Finasteride 5 Mg Tab) 5 mg PO QAM [facility] Stop: 01/17/23 08:59 Last Admin: 12/19/22 08:43 Dose: 5 mg Fluticasone Propionate (Fluticasone Propionate Na Spr 16 Gm Btl) 2 sprays NA DAILY [facility] Stop: 01/17/23 08:59 Last Admin: 12/19/22 08:45 Dose: 2 sprays Folic Acid (Folic Acid 1 Mg Tab) 1 mg PO QAM [facility] Stop: 01/17/23 08:59 Last Admin: 12/19/22 08:43 Dose: 1 mg Furosemide (Furosemide 40 Mg Tab) 40 mg PO BID [facility] Stop: 01/17/23 08:59 Last Admin: 12/18/22 08:31 Dose: 40 mg Furosemide (Furosemide 40 Mg/4 Ml Vial) 40 mg IV BID17 [facility] Stop: 01/17/23 09:29 Last Admin: 12/19/22 09:05 Dose: 40 mg Glucagon (Glucagon For Inj 1 Mg Vial) 1 mg SQ UD PRN; Protocol PRN Reason: Hypoglycemia Protocol Stop: 01/16/23 21:41 Glucose (Glucose 10 Tab/Tube) 4 - 8 tab PO UD PRN; Protocol PRN Reason: Hypoglycemia Treatment Stop: 01/16/23 21:41 Glucose (Glucose 40% Gel 15 Gm Tube) 15 - 30 gm PO UD PRN; Protocol PRN Reason: Hypoglycemia Protocol Stop: 01/16/23 21:41 Guaifenesin/Dextromethorphan (Guaifenesin/Dextrom Syrup 100mg/10mg 5ml Udc) 5 ml PO Q6H PRN PRN Reason: cough Stop: 01/17/23 11:15 Last Admin: 12/19/22 08:44 Dose: 5 ml Hydroxyzine HCl (Hydroxyzine Hcl 25 Mg Tab) 25 mg PO QID PRN PRN Reason: Anxiety Stop: 01/16/23 21:41 Piperacillin Sod/Tazobactam (Sod 4.5 gm/ Dextrose) 120 mls @ 30 mls/hr IV Q8H [facility]; Protocol Stop: 12/28/22 02:59 Last Infusion: 12/19/22 08:45 Dose: Infused Acetaminophen (Ofirmev) 1,000 mg in 100 mls @ 400 mls/hr IV Q8H PRN PRN Reason: Pain Stop: 12/21/22 11:16 Last Admin: 12/19/22 09:04 Dose: 400 mls/hr Methylprednisolone 40 mg/ (Syringe) 0.64 mls @ 1.5 mls/min IV BID [facility] Stop: 01/17/23 11:44 Last Admin: 12/19/22 08:44 Dose: 1.5 mls/min Insulin Aspart (Insulin Aspart Per Unit Charge) 0 units SC ACHS [facility] Stop: 01/16/23 21:41 Last Admin: 12/19/22 09:06 Dose: 8 units Insulin Glargine (Lantus Per Unit Charge) 50 units SQ HS [facility] Stop: 01/17/23 20:59 Last Admin: 12/18/22 20:40 Dose: 50 units Isosorbide Dinitrate (Isosorbide Dinitrate 10 Mg Tab) 30 mg PO DAILY [facility] Stop: 01/17/23 08:59 Last Admin: 12/19/22 08:43 Dose: 30 mg Lactobacillus Acidophilus (Advanced Probiotic 1250 Mg Capsule) 2 cap PO TID [facility] Stop: 01/17/23 08:59 Last Admin: 12/19/22 08:43 Dose: 2 cap Lorazepam (Lorazepam 0.5 Mg Tab) 0.5 mg PO Q8H PRN PRN Reason: Anxiety Stop: 01/17/23 11:15 Last Admin: 12/19/22 00:43 Dose: 0.5 mg Magnesium Oxide (Magnesium Oxide 400 Mg Tab) 400 mg PO DAILY [facility] Stop: 01/17/23 08:59 Last Admin: 12/19/22 08:43 Dose: 400 mg Metoprolol Succinate (Metoprolol Succ 25mg Ext Rel Tab) 75 mg PO BID [facility] Stop: 01/16/23 21:41 Last Admin: 12/19/22 08:44 Dose: 75 mg Miscellaneous (Carbohydrates For Hypoglycemia ) 15 - 30 gm PO UD PRN PRN Reason: Hypoglycemia Protocol Stop: 01/16/23 21:41 Miscellaneous (Remove Nicoderm Patch) 1 each N/A DAILY@0859 [facility] Stop: 01/17/23 08:58 Last Admin: 12/19/22 09:08 Dose: 1 each Multi-Ingredient Cream (Eucerin Cr 120 Gm Jar) 1 appln EXT BID PRN PRN Reason: DRY SKIN Stop: 01/17/23 11:16 Nicotine (Nicotine 21 Mg/24 Hr Tdsy) 21 mg TD QAM [facility] Stop: 01/17/23 08:59 Last Admin: 12/19/22 09:06 Dose: 21 mg Nitroglycerin (Nitroglycerin Sl 0.4 Mg/Tab Tab) 0.4 mg SL UD PRN PRN Reason: Chest Pain Stop: 01/16/23 21:41 Nystatin (Nystatin Powder 15gm Btl) 1 appln EXT TID PRN PRN Reason: Skin Irritation Stop: 01/16/23 21:41 Ondansetron HCl (Ondansetron Inj 2 Mg/Ml 2 Ml Vial) 4 mg IV Q6H PRN PRN Reason: Nausea Stop: 01/16/23 21:41 Last Admin: 12/18/22 10:30 Dose: 4 mg Pantoprazole Sodium (Pantoprazole 40 Mg Tab) 40 mg PO DAILYBB [facility] Stop: 01/17/23 06:29 Last Admin: 12/18/22 05:58 Dose: 40 mg Polyethylene Glycol (Polyethylene (Miralax) 17 Gm Pack) 17 gm PO DAILY PRN PRN Reason: Constipation Stop: 01/16/23 21:41 Polyethylene Glycol (Polyethylene (Miralax) 17 Gm Pack) 17 gm PO QAM [facility] Stop: 01/17/23 08:59 Last Admin: 12/19/22 08:45 Dose: 17 gm Potassium Chloride (Potassium Chloride Crtab 20 Meq Tabcr) 40 meq PO BID [facility] Stop: 01/17/23 08:59 Last Admin: 12/19/22 08:44 Dose: 40 meq Promethazine HCl (Promethazine Hcl 25 Mg Tab) 12.5 mg PO BID PRN PRN Reason: nausea and vomiting Stop: 01/16/23 21:41 Last Admin: 12/18/22 17:10 Dose: 12.5 mg Sennosides (Senna 8.6 Mg Tab) 8.6 mg PO DAILY PRN PRN Reason: Constipation Stop: 01/16/23 21:41 Spironolactone (Spironolactone 25 Mg Tab) 25 mg PO [facility] Stop: 01/17/23 08:59 Last Admin: 12/19/22 08:43 Dose: 25 mg Tamsulosin HCl (Tamsulosin Hcl 0.4 Mg Cap) 0.8 mg PO [facility] Stop: 01/17/23 08:59 Last Admin: 12/19/22 08:43 Dose: 0.8 mg Vitamin D (Cholecalciferol 5,000 Units 125 Mcg Tab) 5,000 units PO [facility] Stop: 01/17/23 08:59 Last Admin: 12/19/22 08:43 Dose: 5,000 units Warfarin Sodium (Warfarin Sod 2.5 Mg Tab) 2.5 mg PO [id number] [facility] Stop: 01/16/23 21:41 Last Admin: 12/17/22 23:09 Dose: 2.5 mg Warfarin Sodium (Warfarin Sod 5 Mg Tab) 5 mg PO [id number] [facility] Stop: 01/17/23 15:59 Last Admin: 12/18/22 15:00 Dose: 5 mg (4) COPD (chronic obstructive pulmonary disease) COPD type: unspecified COPD Qualified Code(s): J44.9 - Chronic obstructive pulmonary disease, unspecified
--- NOTE | 2022-12-19 11:48 | Hospitalist Progress Note ---
Date of Service December 19, 2022 Assessment & Plan (1) AMS (altered mental status): Plan: Was admitted with acute confusion which resolved since admission Likely secondary to medications and infection has to be ruled out Appreciate neurology input and recommendation Seems to be at his baseline as of this morning The confusion is cleared (2) Acute UTI (urinary tract infection): Plan: Has indwelling Lloyd catheter UA is suggestive of infection but bacteria is negative Started on intravenous Zosyn and will wait for culture and sensitivity Urine is not showing any infection and Zosyn will be discontinued after 3 days (3) Chronic indwelling Lloyd catheter: Plan: As above No acute issues (4) Syncope and collapse: Plan: Has been falling at home with questionable loss of consciousness for a few seconds as per the patient and significant other No arrhythmias on the monitor Appreciate cardiology input and recommendation EEG has been negative for any seizure activity We will get PT and OT evaluation (5) Peripheral polyneuropathy: Plan: Has peripheral neuropathy likely secondary to diabetes (6) COPD exacerbation: Plan: History of COPD with ongoing smoking Has been on nebulized bronchodilator We will add intravenous Solu-Medrol He will need to have a short tapering course of steroid on discharge (7) History of pulmonary embolism: Plan: Has been on Coumadin INR is therapeutic We will continue with Coumadin (8) 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 Admission and Anticipated Discharge Date Admission Date: December 17, 2022 Subjective 12/18/2022 The patient was seen and examined in telemetry unit He was admitted with frequent falls at home with acute confusion without fever and or chills He has been feeling better since admission but complains to have more pain at the back without radiation Complains of wheezing with more shortness of breath but has been saturating normally on room air 12/19/2022 The patient was seen and examined in telemetry unit He has been feeling better and the wheezing has improved a lot Denies any chest pain or palpitation and the swelling of the legs are improving too Review of Systems Review of Systems: All systems reviewed and are unremarkable except as noted below Respiratory: Minimal shortness of breath at rest with wheezing Physical Exam Physical Exam: Lying in bed without any acute distress Constitutional: well developed, well nourished, + ill appearing and + morbidly obese Eyes: PERRL, conjunctivae normal, anicteric sclerae ENMT: external ear and nose normal, oropharynx normal Neck: trachea midline, no thyromegaly Respiratory: + respiratory distress (Minimal distress at rest) Auscultation: + diminished lung sounds, + crackles (Bibasilar crackles) and + wheezes (Moderate wheezing all over) Cardiovascular: Rate/Rhythm: regular rate and regular rhythm; not tachycardic Heart Sounds: normal S1 and normal S2; no murmur Extremities: + edema (1+ edema, chronic and bilateral with chronic skin changes) Gastrointestinal (Abdomen): Inspection/Auscultation: + abdomen distended and normal bowel sounds Percussion/Palpation: abdomen soft; abdomen nontender Musculoskeletal: No acute arthritis involving any of the joints Neurologic: moves all extremities; no focal motor deficits Psychiatric: Mood: + depressed mood Lymphatic: no cervical or axillary lymphadenopathy Results & Data Results & Data Vital Signs (Past 12 Hours) Vital Signs Temp Pulse Pulse Resp BP Pulse Ox O2 Del Method 12/19/22 08:40 Nasal Cannula 12/19/22 08:43 36.9 C 98 H 18 161/68 H 98 Nasal Cannula 12/19/22 06:02 71 12/19/22 00:00 85 12/19/22 03:43 36.5 C 75 19 144/74 H 96 Nasal Cannula 12/19/22 00:30 36.7 C 20 96 Nasal Cannula O2 Flow Rate 12/19/22 08:40 4 12/19/22 08:43 4 12/19/22 06:02 12/19/22 00:00 12/19/22 03:43 4 12/19/22 00:30 4 Laboratory Results Short CBC 12/19/22 Range/Units 06:12 WBC 16.86 H (4.8-10.8) K/ul Hgb 13.6 L (14.0-18.0) g/dl Hct 42.0 (42.0-52.0) % Plt Count 271 (130-400) K/uL BMP 12/19/22 06:12 Sodium 136 Potassium 4.3 Chloride 98 Carbon Dioxide 34 H BUN 14 Creatinine 0.94 Glucose 184 H Calcium 9.8 Liver Function 12/19/22 Range/Units 06:12 Total Bilirubin 0.7 (0.2-1.0) mg/dl AST 11 L (13-39) U/L ALT 12 (7-52) U/L Alkaline Phosphatase 93 (34-104) U/L Albumin 3.5 (3.4-5.0) gm/dl Medications Administered Current Inpatient Medications Albuterol (Albuterol Hfa 8 Gm Inhaler) 2 puffs INH Q4R PRN PRN Reason: Dyspnea Stop: 01/16/23 21:41 Albuterol (Albut/Ipratrop 3mg/0.5mg Neb 3 Ml Vial) 3 ml INH Q6H PRN; Protocol PRN Reason: Shortness Of Breath Or Wheezing Stop: 01/16/23 21:41 Aspirin (Aspirin 81 Mg Ectab) 81 mg PO QAM [facility] Stop: 01/17/23 08:59 Last Admin: 12/19/22 08:43 Dose: 81 mg Atorvastatin Calcium (Atorvastatin 40 Mg Tab) 80 mg PO QPM [facility] Stop: 01/16/23 21:41 Last Admin: 12/18/22 20:18 Dose: 80 mg Benzonatate (Benzonatate 100 Mg Capsule) 100 mg PO TID PRN PRN Reason: cough Stop: 01/16/23 21:41 Buprenorphine HCl (Buprenorphine Hcl 8 Mg Subl) 8 mg SL TID [facility] Stop: 01/17/23 14:44 Last Admin: 12/19/22 09:05 Dose: 8 mg Cyclobenzaprine HCl (Cyclobenzaprine Hcl 10 Mg Tab) 10 mg PO BID PRN PRN Reason: Muscle Spasm Stop: 01/17/23 11:15 Last Admin: 12/19/22 09:05 Dose: 10 mg Dextrose (Dextrose 50% 50 Ml Syringe) 25 - 50 ml IV UD PRN; Protocol PRN Reason: Hypoglycemia Protocol Stop: 01/16/23 21:41 Diclofenac Sodium (Diclofenac Sod 1% Gel 100 Gm Tube) 2 gm EXT BID [facility]; Protocol Stop: 01/16/23 21:41 Last Admin: 12/19/22 09:06 Dose: 2 gm Docusate Sodium (Docusate Sodium 100 Mg Cap) 100 mg PO BID [facility] Stop: 01/16/23 21:41 Last Admin: 12/19/22 08:43 Dose: 100 mg Duloxetine HCl (Duloxetine Hcl 60 Mg Cap) 60 mg PO DAILY [facility] Stop: 01/17/23 08:59 Last Admin: 12/19/22 08:43 Dose: 60 mg Famotidine (Famotidine 20 Mg Tab) 20 mg PO DAILY [facility] Stop: 01/17/23 08:59 Last Admin: 12/19/22 08:43 Dose: 20 mg Ferrous Sulfate (Ferrous Sulfate 325 Mg Tab) 325 mg PO DAILY [facility] Stop: 01/17/23 08:59 Last Admin: 12/19/22 08:43 Dose: 325 mg Finasteride (Finasteride 5 Mg Tab) 5 mg PO QAM [facility] Stop: 01/17/23 08:59 Last Admin: 12/19/22 08:43 Dose: 5 mg Fluticasone Propionate (Fluticasone Propionate Na Spr 16 Gm Btl) 2 sprays NA DAILY [facility] Stop: 01/17/23 08:59 Last Admin: 12/19/22 08:45 Dose: 2 sprays Folic Acid (Folic Acid 1 Mg Tab) 1 mg PO QAM [facility] Stop: 01/17/23 08:59 Last Admin: 12/19/22 08:43 Dose: 1 mg Furosemide (Furosemide 40 Mg Tab) 40 mg PO BID [facility] Stop: 01/17/23 08:59 Last Admin: 12/18/22 08:31 Dose: 40 mg Furosemide (Furosemide 40 Mg/4 Ml Vial) 40 mg IV BID17 [facility] Stop: 01/17/23 09:29 Last Admin: 12/19/22 09:05 Dose: 40 mg Glucagon (Glucagon For Inj 1 Mg Vial) 1 mg SQ UD PRN; Protocol PRN Reason: Hypoglycemia Protocol Stop: 01/16/23 21:41 Glucose (Glucose 10 Tab/Tube) 4 - 8 tab PO UD PRN; Protocol PRN Reason: Hypoglycemia Treatment Stop: 01/16/23 21:41 Glucose (Glucose 40% Gel 15 Gm Tube) 15 - 30 gm PO UD PRN; Protocol PRN Reason: Hypoglycemia Protocol Stop: 01/16/23 21:41 Guaifenesin/Dextromethorphan (Guaifenesin/Dextrom Syrup 100mg/10mg 5ml Udc) 5 ml PO Q6H PRN PRN Reason: cough Stop: 01/17/23 11:15 Last Admin: 12/19/22 08:44 Dose: 5 ml Hydroxyzine HCl (Hydroxyzine Hcl 25 Mg Tab) 25 mg PO QID PRN PRN Reason: Anxiety Stop: 01/16/23 21:41 Piperacillin Sod/Tazobactam (Sod 4.5 gm/ Dextrose) 120 mls @ 30 mls/hr IV Q8H [facility]; Protocol Stop: 12/28/22 02:59 Last Infusion: 12/19/22 08:45 Dose: Infused Acetaminophen (Ofirmev) 1,000 mg in 100 mls @ 400 mls/hr IV Q8H PRN PRN Reason: Pain Stop: 12/21/22 11:16 Last Infusion: 12/19/22 09:19 Dose: Infused Methylprednisolone 40 mg/ (Syringe) 0.64 mls @ 1.5 mls/min IV BID [facility] Stop: 01/17/23 11:44 Last Admin: 12/19/22 08:44 Dose: 1.5 mls/min Insulin Aspart (Insulin Aspart Per Unit Charge) 0 units SC ACHS [facility] Stop: 01/16/23 21:41 Last Admin: 12/19/22 09:06 Dose: 8 units Insulin Glargine (Lantus Per Unit Charge) 50 units SQ HS [facility] Stop: 01/17/23 20:59 Last Admin: 12/18/22 20:40 Dose: 50 units Isosorbide Dinitrate (Isosorbide Dinitrate 10 Mg Tab) 30 mg PO DAILY [facility] Stop: 01/17/23 08:59 Last Admin: 12/19/22 08:43 Dose: 30 mg Lactobacillus Acidophilus (Advanced Probiotic 1250 Mg Capsule) 2 cap PO TID [facility] Stop: 01/17/23 08:59 Last Admin: 12/19/22 08:43 Dose: 2 cap Lorazepam (Lorazepam 0.5 Mg Tab) 0.5 mg PO Q8H PRN PRN Reason: Anxiety Stop: 01/17/23 11:15 Last Admin: 12/19/22 00:43 Dose: 0.5 mg Magnesium Oxide (Magnesium Oxide 400 Mg Tab) 400 mg PO DAILY [facility] Stop: 01/17/23 08:59 Last Admin: 12/19/22 08:43 Dose: 400 mg Metoprolol Succinate (Metoprolol Succ 25mg Ext Rel Tab) 75 mg PO BID [facility] Stop: 01/16/23 21:41 Last Admin: 12/19/22 08:44 Dose: 75 mg Miscellaneous (Carbohydrates For Hypoglycemia ) 15 - 30 gm PO UD PRN PRN Reason: Hypoglycemia Protocol Stop: 01/16/23 21:41 Miscellaneous (Remove Nicoderm Patch) 1 each N/A DAILY@0859 [facility] Stop: 01/17/23 08:58 Last Admin: 12/19/22 09:08 Dose: 1 each Multi-Ingredient Cream (Eucerin Cr 120 Gm Jar) 1 appln EXT BID PRN PRN Reason: DRY SKIN Stop: 01/17/23 11:16 Nicotine (Nicotine 21 Mg/24 Hr Tdsy) 21 mg TD QAM [facility] Stop: 01/17/23 08:59 Last Admin: 12/19/22 09:06 Dose: 21 mg Nitroglycerin (Nitroglycerin Sl 0.4 Mg/Tab Tab) 0.4 mg SL UD PRN PRN Reason: Chest Pain Stop: 01/16/23 21:41 Nystatin (Nystatin Powder 15gm Btl) 1 appln EXT TID PRN PRN Reason: Skin Irritation Stop: 01/16/23 21:41 Ondansetron HCl (Ondansetron Inj 2 Mg/Ml 2 Ml Vial) 4 mg IV Q6H PRN PRN Reason: Nausea Stop: 01/16/23 21:41 Last Admin: 12/18/22 10:30 Dose: 4 mg Pantoprazole Sodium (Pantoprazole 40 Mg Tab) 40 mg PO DAILYBB [facility] Stop: 01/17/23 06:29 Last Admin: 12/18/22 05:58 Dose: 40 mg Polyethylene Glycol (Polyethylene (Miralax) 17 Gm Pack) 17 gm PO DAILY PRN PRN Reason: Constipation Stop: 01/16/23 21:41 Polyethylene Glycol (Polyethylene (Miralax) 17 Gm Pack) 17 gm PO QAM [facility] Stop: 01/17/23 08:59 Last Admin: 12/19/22 08:45 Dose: 17 gm Potassium Chloride (Potassium Chloride Crtab 20 Meq Tabcr) 40 meq PO BID [facility] Stop: 01/17/23 08:59 Last Admin: 12/19/22 08:44 Dose: 40 meq Promethazine HCl (Promethazine Hcl 25 Mg Tab) 12.5 mg PO BID PRN PRN Reason: nausea and vomiting Stop: 01/16/23 21:41 Last Admin: 12/18/22 17:10 Dose: 12.5 mg Sennosides (Senna 8.6 Mg Tab) 8.6 mg PO DAILY PRN PRN Reason: Constipation Stop: 01/16/23 21:41 Spironolactone (Spironolactone 25 Mg Tab) 25 mg PO [facility] Stop: 01/17/23 08:59 Last Admin: 12/19/22 08:43 Dose: 25 mg Tamsulosin HCl (Tamsulosin Hcl 0.4 Mg Cap) 0.8 mg PO [facility] Stop: 01/17/23 08:59 Last Admin: 12/19/22 08:43 Dose: 0.8 mg Vitamin D (Cholecalciferol 5,000 Units 125 Mcg Tab) 5,000 units PO [facility] Stop: 01/17/23 08:59 Last Admin: 12/19/22 08:43 Dose: 5,000 units Warfarin Sodium (Warfarin Sod 2.5 Mg Tab) 2.5 mg PO SuTuWeThSa@1600 [facility] Stop: 01/16/23 21:41 Last Admin: 12/17/22 23:09 Dose: 2.5 mg Warfarin Sodium (Warfarin Sod 5 Mg Tab) 5 mg PO MoFr@1600 [facility] Stop: 01/17/23 15:59 Last Admin: 12/18/22 15:00 Dose: 5 mg (9) 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
[2022-12-19] MEDS: PANTOprazole 40 MG TAB PO SCH (17:13)
[2022-12-19] MEDS: ATORVASTATIN 40 MG TAB PO SCH (20:46)
[2022-12-19] MEDS: LANTUS PER UNIT CHARGE SQ SCH (20:52)
[2022-12-19] MEDS ORDERED: LIDOCAINE 2% JELLY 5 ML TUBE EXT ONE (20:59)
[2022-12-20] MEDS: guaiFENesin/DEXTROM SYRUP 100MG/10MG 5ML UDC PO PRN ×3 (00:09→20:11)
[2022-12-20] MEDS: PIPERACILLIN/TAZOBACTAM 4.5 GM in DEXTROSE 5% 100 ML IV SCH ×3 (03:32→18:24)
[2022-12-20 06:18] LABS: BUN Creatinine Ratio 20.2 (10-20); Calcium 9.9 mg/dl (8.6-10.3); Creatinine Clr Calc Pharmacy 165.7 ml/min; Est GFR (African American) 107.6 ml/min; Est GFR (Non-African American) 92.8 ml/min; Potassium 4.3 mmol/L (3.5-5.1)
[2022-12-20 06:30] LABS: Prothrombin Time 30.4 Seconds (9.0-12.0)
[2022-12-20] MEDS: PANTOprazole 40 MG TAB PO SCH (06:33)
[2022-12-20] MEDS: TAMSULOSIN HCL 0.4 MG CAP PO SCH (08:51)
[2022-12-20] MEDS: ASPIRIN 81 MG ECTAB PO SCH (08:51)
[2022-12-20] MEDS: FERROUS SULFATE 325 MG TAB PO SCH (08:51)
[2022-12-20] MEDS: ISOSORBIDE DINITRATE 10 MG TAB PO SCH (08:51)
[2022-12-20] MEDS: FOLIC ACID 1 MG TAB PO SCH (08:51)
[2022-12-20] MEDS: CHOLECALCIFEROL 5,000 UNITS 125 MCG TAB PO SCH (08:51)
[2022-12-20] MEDS: POTASSIUM CHLORIDE CRTAB 20 MEQ TABCR PO SCH ×2 (08:52→20:12)
[2022-12-20] MEDS: FAMOTIDINE 20 MG TAB PO SCH (08:52)
[2022-12-20] MEDS: MAGNESIUM OXIDE 400 MG TAB PO SCH (08:52)
[2022-12-20] MEDS: ADVANCED PROBIOTIC 1250 MG CAPSULE PO SCH ×3 (08:52→20:09)
[2022-12-20] MEDS: METOPROLOL SUCC 25MG EXT REL TAB PO SCH ×2 (08:52→20:10)
[2022-12-20] MEDS: DULoxetine HCL 60 MG CAP PO SCH (08:52)
[2022-12-20] MEDS: SPIRONOLACTONE 25 MG TAB PO SCH (08:52)
[2022-12-20] MEDS: FINASTERIDE 5 MG TAB PO SCH (08:52)
[2022-12-20] MEDS: POLYETHYLENE (MIRALAX) 17 GM PACK PO SCH (08:52)
[2022-12-20] MEDS: methylPREDNISolone 40 MG in SYRINGE 0 ML IV SCH ×2 (08:53→20:10)
[2022-12-20] MEDS: NICOTINE 21 MG/24 HR TDSY TD SCH (08:53)
[2022-12-20] MEDS: DOCUSATE SODIUM 100 MG CAP PO SCH ×2 (08:53→20:09)
[2022-12-20] MEDS: DICLOFENAC SOD 1% GEL 100 GM TUBE EXT SCH ×2 (08:53→20:07)
[2022-12-20] MEDS: FLUTICASONE PROPIONATE NA SPR 16 GM BTL SCH (08:53)
[2022-12-20] MEDS: CYCLOBENZAPRINE HCL 10 MG TAB PO PRN ×2 (09:07→20:35)
[2022-12-20] MEDS: buprenorphine HCL 8 MG SUBL SL SCH ×3 (09:07→20:36)
[2022-12-20] MEDS: FUROSEMIDE 40 MG/4 ML VIAL IV SCH ×2 (09:07→18:03)
[2022-12-20] MEDS: ACETAMINOPHEN 1,000 MG/100 ML VIAL IV PRN ×2 (09:07→18:03)
[2022-12-20] MEDS: INSULIN ASPART PER UNIT CHARGE SC SCH ×4 (09:08→20:39)
--- NOTE | 2022-12-20 13:52 | Hospitalist Progress Note ---
Date of Service December 20, 2022 Assessment & Plan (1) AMS (altered mental status): Plan: Was admitted with acute confusion which resolved since admission Likely secondary to medications and infection has to be ruled out Appreciate neurology input and recommendation Seems to be at his baseline as of this morning The confusion is cleared Wanted to know what is causing the confusion-explained the possibility of multiple potential medications in conjunction Offered to cut down few of the medications to help but the patient disagreed (2) Acute UTI (urinary tract infection): Plan: Has indwelling Lloyd catheter UA is suggestive of infection but bacteria is negative Started on intravenous Zosyn and will wait for culture and sensitivity Urine is not showing any infection and Zosyn will be discontinued after 3 days Will discontinue Zosyn tomorrow or day after (3) Chronic indwelling Lloyd catheter: Plan: As above No acute issues (4) Syncope and collapse: Plan: Has been falling at home with questionable loss of consciousness for a few seconds as per the patient and significant other No arrhythmias on the monitor Appreciate cardiology input and recommendation EEG has been negative for any seizure activity We will get PT and OT evaluation (5) Peripheral polyneuropathy: Plan: Has peripheral neuropathy likely secondary to diabetes (6) COPD exacerbation: Plan: History of COPD with ongoing smoking Has been on nebulized bronchodilator We will add intravenous Solu-Medrol He will need to have a short tapering course of steroid on discharge (7) History of pulmonary embolism: Plan: Has been on Coumadin INR is therapeutic We will continue with Coumadin (8) 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: Plan: We will hold any metformin We will start with SSI and continue insulin (9) 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 Admission and Anticipated Discharge Date Admission Date: December 17, 2022 Subjective 12/18/2022 The patient was seen and examined in telemetry unit He was admitted with frequent falls at home with acute confusion without fever and or chills He has been feeling better since admission but complains to have more pain at the back without radiation Complains of wheezing with more shortness of breath but has been saturating normally on room air 12/19/2022 The patient was seen and examined in telemetry unit He has been feeling better and the wheezing has improved a lot Denies any chest pain or palpitation and the swelling of the legs are improving too 12/20/2022 The patient was seen and examined in telemetry unit He has been feeling much better and denies any significant wheezing Says he is very weak and lethargic Review of Systems Review of Systems: All systems reviewed and are unremarkable except as noted below Respiratory: Minimal shortness of breath at rest with wheezing Physical Exam Physical Exam: Lying in bed without any acute distress Constitutional: well developed, well nourished, + ill appearing and + morbidly obese Eyes: PERRL, conjunctivae normal, anicteric sclerae ENMT: external ear and nose normal, oropharynx normal Neck: trachea midline, no thyromegaly Respiratory: + respiratory distress (Minimal distress at rest) Auscultation: + diminished lung sounds, + crackles (Bibasilar crackles) and + wheezes (Minimal wheezing bilaterally) Cardiovascular: Rate/Rhythm: regular rate and regular rhythm; not tachycardic Heart Sounds: normal S1 and normal S2; no murmur Extremities: + edema (1+ edema, chronic and bilateral with chronic skin changes) Gastrointestinal (Abdomen): Inspection/Auscultation: + abdomen distended and normal bowel sounds Percussion/Palpation: abdomen soft; abdomen nontender Neurologic: moves all extremities; no focal motor deficits Psychiatric: Mood: + depressed mood Lymphatic: no cervical or axillary lymphadenopathy Results & Data Results & Data Vital Signs (Past 12 Hours) Vital Signs Temp Pulse Pulse Resp BP Pulse Ox O2 Del Method 12/20/22 11:50 36.3 C L 73 20 160/75 H 98 Nasal Cannula 12/20/22 07:40 Room Air 12/20/22 07:37 36.4 C L 64 21 137/82 99 Nasal Cannula 12/20/22 06:03 61 12/20/22 03:02 36.5 C 69 18 148/78 H 98 Room Air O2 Flow Rate 12/20/22 11:50 4 12/20/22 07:40 12/20/22 07:37 4 12/20/22 06:03 12/20/22 03:02 Laboratory Results BMP 12/20/22 05:37 Sodium 138 Potassium 4.3 Chloride 99 Carbon Dioxide 34 H BUN 19 Creatinine 0.94 Glucose 267 H Calcium 9.9 Medications Administered Current Inpatient Medications Albuterol (Albuterol Hfa 8 Gm Inhaler) 2 puffs INH Q4R PRN PRN Reason: Dyspnea Stop: 01/16/23 21:41 Albuterol (Albut/Ipratrop 3mg/0.5mg Neb 3 Ml Vial) 3 ml INH Q6H PRN; Protocol PRN Reason: Shortness Of Breath Or Wheezing Stop: 01/16/23 21:41 Aspirin (Aspirin 81 Mg Ectab) 81 mg PO QAM [facility] Stop: 01/17/23 08:59 Last Admin: 12/20/22 08:51 Dose: 81 mg Atorvastatin Calcium (Atorvastatin 40 Mg Tab) 80 mg PO QPM [facility] Stop: 01/16/23 21:41 Last Admin: 12/19/22 20:46 Dose: 80 mg Benzonatate (Benzonatate 100 Mg Capsule) 100 mg PO TID PRN PRN Reason: cough Stop: 01/16/23 21:41 Buprenorphine HCl (Buprenorphine Hcl 8 Mg Subl) 8 mg SL TID [facility] Stop: 01/17/23 14:44 Last Admin: 12/20/22 09:07 Dose: 8 mg Cyclobenzaprine HCl (Cyclobenzaprine Hcl 10 Mg Tab) 10 mg PO BID PRN PRN Reason: Muscle Spasm Stop: 01/17/23 11:15 Last Admin: 12/20/22 09:07 Dose: 10 mg Dextrose (Dextrose 50% 50 Ml Syringe) 25 - 50 ml IV UD PRN; Protocol PRN Reason: Hypoglycemia Protocol Stop: 01/16/23 21:41 Diclofenac Sodium (Diclofenac Sod 1% Gel 100 Gm Tube) 2 gm EXT BID [facility]; Protocol Stop: 01/16/23 21:41 Last Admin: 12/20/22 08:53 Dose: 2 gm Docusate Sodium (Docusate Sodium 100 Mg Cap) 100 mg PO BID [facility] Stop: 01/16/23 21:41 Last Admin: 12/20/22 08:53 Dose: 100 mg Duloxetine HCl (Duloxetine Hcl 60 Mg Cap) 60 mg PO DAILY [facility] Stop: 01/17/23 08:59 Last Admin: 12/20/22 08:52 Dose: 60 mg Famotidine (Famotidine 20 Mg Tab) 20 mg PO DAILY [facility] Stop: 01/17/23 08:59 Last Admin: 12/20/22 08:52 Dose: 20 mg Ferrous Sulfate (Ferrous Sulfate 325 Mg Tab) 325 mg PO DAILY [facility] Stop: 01/17/23 08:59 Last Admin: 12/20/22 08:51 Dose: 325 mg Finasteride (Finasteride 5 Mg Tab) 5 mg PO QAM [facility] Stop: 01/17/23 08:59 Last Admin: 12/20/22 08:52 Dose: 5 mg Fluticasone Propionate (Fluticasone Propionate Na Spr 16 Gm Btl) 2 sprays NA DAILY [facility] Stop: 01/17/23 08:59 Last Admin: 12/20/22 08:53 Dose: 2 sprays Folic Acid (Folic Acid 1 Mg Tab) 1 mg PO QAM [facility] Stop: 01/17/23 08:59 Last Admin: 12/20/22 08:51 Dose: 1 mg Furosemide (Furosemide 40 Mg Tab) 40 mg PO BID [facility] Stop: 01/17/23 08:59 Last Admin: 12/18/22 08:31 Dose: 40 mg Furosemide (Furosemide 40 Mg/4 Ml Vial) 40 mg IV BID17 [facility] Stop: 01/17/23 09:29 Last Admin: 12/20/22 09:07 Dose: 40 mg Glucagon (Glucagon For Inj 1 Mg Vial) 1 mg SQ UD PRN; Protocol PRN Reason: Hypoglycemia Protocol Stop: 01/16/23 21:41 Glucose (Glucose 10 Tab/Tube) 4 - 8 tab PO UD PRN; Protocol PRN Reason: Hypoglycemia Treatment Stop: 01/16/23 21:41 Glucose (Glucose 40% Gel 15 Gm Tube) 15 - 30 gm PO UD PRN; Protocol PRN Reason: Hypoglycemia Protocol Stop: 01/16/23 21:41 Guaifenesin/Dextromethorphan (Guaifenesin/Dextrom Syrup 100mg/10mg 5ml Udc) 5 ml PO Q6H PRN PRN Reason: cough Stop: 01/17/23 11:15 Last Admin: 12/20/22 09:14 Dose: 5 ml Hydroxyzine HCl (Hydroxyzine Hcl 25 Mg Tab) 25 mg PO QID PRN PRN Reason: Anxiety Stop: 01/16/23 21:41 Piperacillin Sod/Tazobactam (Sod 4.5 gm/ Dextrose) 120 mls @ 30 mls/hr IV Q8H [facility]; Protocol Stop: 12/28/22 02:59 Last Admin: 12/20/22 12:48 Dose: 30 mls/hr Acetaminophen (Ofirmev) 1,000 mg in 100 mls @ 400 mls/hr IV Q8H PRN PRN Reason: Pain Stop: 12/21/22 11:16 Last Infusion: 12/20/22 09:40 Dose: Infused Methylprednisolone 40 mg/ (Syringe) 0.64 mls @ 1.5 mls/min IV BID [facility] Stop: 01/17/23 11:44 Last Admin: 12/20/22 08:53 Dose: 1.5 mls/min Insulin Aspart (Insulin Aspart Per Unit Charge) 0 units SC ACHS [facility] Stop: 01/16/23 21:41 Last Admin: 12/20/22 12:49 Dose: 13 units Insulin Glargine (Lantus Per Unit Charge) 50 units SQ HS [facility] Stop: 01/17/23 20:59 Last Admin: 12/19/22 20:52 Dose: 50 units Isosorbide Dinitrate (Isosorbide Dinitrate 10 Mg Tab) 30 mg PO DAILY [facility] Stop: 01/17/23 08:59 Last Admin: 12/20/22 08:51 Dose: 30 mg Lactobacillus Acidophilus (Advanced Probiotic 1250 Mg Capsule) 2 cap PO TID [facility] Stop: 01/17/23 08:59 Last Admin: 12/20/22 08:52 Dose: 2 cap Lorazepam (Lorazepam 0.5 Mg Tab) 0.5 mg PO Q8H PRN PRN Reason: Anxiety Stop: 01/17/23 11:15 Last Admin: 12/19/22 00:43 Dose: 0.5 mg Magnesium Oxide (Magnesium Oxide 400 Mg Tab) 400 mg PO DAILY [facility] Stop: 01/17/23 08:59 Last Admin: 12/20/22 08:52 Dose: 400 mg Metoprolol Succinate (Metoprolol Succ 25mg Ext Rel Tab) 75 mg PO BID [facility] Stop: 01/16/23 21:41 Last Admin: 12/20/22 08:52 Dose: 75 mg Miscellaneous (Carbohydrates For Hypoglycemia ) 15 - 30 gm PO UD PRN PRN Reason: Hypoglycemia Protocol Stop: 01/16/23 21:41 Miscellaneous (Remove Nicoderm Patch) 1 each N/A DAILY@0859 [facility] Stop: 01/17/23 08:58 Last Admin: 12/20/22 08:53 Dose: 1 each Multi-Ingredient Cream (Eucerin Cr 120 Gm Jar) 1 appln EXT BID PRN PRN Reason: DRY SKIN Stop: 01/17/23 11:16 Nicotine (Nicotine 21 Mg/24 Hr Tdsy) 21 mg TD QAM [facility] Stop: 01/17/23 08:59 Last Admin: 12/20/22 08:53 Dose: 21 mg Nitroglycerin (Nitroglycerin Sl 0.4 Mg/Tab Tab) 0.4 mg SL UD PRN PRN Reason: Chest Pain Stop: 01/16/23 21:41 Nystatin (Nystatin Powder 15gm Btl) 1 appln EXT TID PRN PRN Reason: Skin Irritation Stop: 01/16/23 21:41 Ondansetron HCl (Ondansetron Inj 2 Mg/Ml 2 Ml Vial) 4 mg IV Q6H PRN PRN Reason: Nausea Stop: 01/16/23 21:41 Last Admin: 12/18/22 10:30 Dose: 4 mg Pantoprazole Sodium (Pantoprazole 40 Mg Tab) 40 mg PO DAILYBB [facility] Stop: 01/17/23 06:29 Last Admin: 12/20/22 06:33 Dose: 40 mg Polyethylene Glycol (Polyethylene (Miralax) 17 Gm Pack) 17 gm PO DAILY PRN PRN Reason: Constipation Stop: 01/16/23 21:41 Polyethylene Glycol (Polyethylene (Miralax) 17 Gm Pack) 17 gm PO QAM [facility] Stop: 01/17/23 08:59 Last Admin: 12/20/22 08:52 Dose: 17 gm Potassium Chloride (Potassium Chloride Crtab 20 Meq Tabcr) 40 meq PO BID [facility] Stop: 01/17/23 08:59 Last Admin: 12/20/22 08:52 Dose: 40 meq Promethazine HCl (Promethazine Hcl 25 Mg Tab) 12.5 mg PO BID PRN PRN Reason: nausea and vomiting Stop: 01/16/23 21:41 Last Admin: 12/18/22 17:10 Dose: 12.5 mg Sennosides (Senna 8.6 Mg Tab) 8.6 mg PO DAILY PRN PRN Reason: Constipation Stop: 01/16/23 21:41 Spironolactone (Spironolactone 25 Mg Tab) 25 mg PO QAM [facility] Stop: 01/17/23 08:59 Last Admin: 12/20/22 08:52 Dose: 25 mg Tamsulosin HCl (Tamsulosin Hcl 0.4 Mg Cap) 0.8 mg PO [facility] Stop: 01/17/23 08:59 Last Admin: 12/20/22 08:51 Dose: 0.8 mg Vitamin D (Cholecalciferol 5,000 Units 125 Mcg Tab) 5,000 units PO [facility] Stop: 01/17/23 08:59 Last Admin: 12/20/22 08:51 Dose: 5,000 units Warfarin Sodium (Warfarin Sod 2.5 Mg Tab) 2.5 mg PO [id number]@1600 [facility] Stop: 01/16/23 21:41 Last Admin: 12/17/22 23:09 Dose: 2.5 mg Warfarin Sodium (Warfarin Sod 5 Mg Tab) 5 mg PO [id number]@1600 [facility] Stop: 01/17/23 15:59 Last Admin: 12/18/22 15:00 Dose: 5 mg (9) 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
[2022-12-20] MEDS: WARFARIN SOD 2.5 MG TAB PO SCH (16:48)
[2022-12-20] MEDS: ATORVASTATIN 40 MG TAB PO SCH (20:06)
[2022-12-20] MEDS: GABAPENTIN 800 MG TAB PO SCH (20:08)
[2022-12-20] MEDS: LANTUS PER UNIT CHARGE SQ SCH (20:36)
[2022-12-20] MEDS: LORazepam 0.5 MG TAB PO PRN (20:36)
[2022-12-21] MEDS: guaiFENesin/DEXTROM SYRUP 100MG/10MG 5ML UDC PO PRN ×4 (02:43→23:35)
[2022-12-21] MEDS: ACETAMINOPHEN 1,000 MG/100 ML VIAL IV PRN ×3 (02:43→21:09)
[2022-12-21] MEDS: PIPERACILLIN/TAZOBACTAM 4.5 GM in DEXTROSE 5% 100 ML IV SCH ×2 (03:02→11:22)
[2022-12-21 07:03] LABS: INR 2.3 (0.9-1.1); Prothrombin Time 23.5 Seconds (9.0-12.0)
[2022-12-21 07:07] LABS: Calcium 9.9 mg/dl (8.6-10.3); Est GFR (African American) 94.1 ml/min; Est GFR (Non-African American) 81.2 ml/min; Magnesium 2.1 mg/dl (1.7-2.4); Potassium 4.4 mmol/L (3.5-5.1)
[2022-12-21] MEDS: PANTOprazole 40 MG TAB PO SCH (07:11)
[2022-12-21] MEDS: FUROSEMIDE 40 MG/4 ML VIAL IV SCH ×2 (08:58→17:50)
[2022-12-21] MEDS: CYCLOBENZAPRINE HCL 10 MG TAB PO PRN ×2 (08:59→21:10)
[2022-12-21] MEDS: CHOLECALCIFEROL 5,000 UNITS 125 MCG TAB PO SCH (08:59)
[2022-12-21] MEDS: FINASTERIDE 5 MG TAB PO SCH (08:59)
[2022-12-21] MEDS: MAGNESIUM OXIDE 400 MG TAB PO SCH (08:59)
[2022-12-21] MEDS: SPIRONOLACTONE 25 MG TAB PO SCH (08:59)
[2022-12-21] MEDS: ASPIRIN 81 MG ECTAB PO SCH (08:59)
[2022-12-21] MEDS: TAMSULOSIN HCL 0.4 MG CAP PO SCH (08:59)
[2022-12-21] MEDS: POTASSIUM CHLORIDE CRTAB 20 MEQ TABCR PO SCH ×2 (08:59→20:41)
[2022-12-21] MEDS: ISOSORBIDE DINITRATE 10 MG TAB PO SCH (08:59)
[2022-12-21] MEDS: FOLIC ACID 1 MG TAB PO SCH (08:59)
[2022-12-21] MEDS: FAMOTIDINE 20 MG TAB PO SCH (08:59)
[2022-12-21] MEDS: NICOTINE 21 MG/24 HR TDSY TD SCH (08:59)
[2022-12-21] MEDS: DULoxetine HCL 60 MG CAP PO SCH (08:59)
[2022-12-21] MEDS: FERROUS SULFATE 325 MG TAB PO SCH (08:59)
[2022-12-21] MEDS: methylPREDNISolone 40 MG in SYRINGE 0 ML IV SCH ×2 (08:59→20:41)
[2022-12-21] MEDS: buprenorphine HCL 8 MG SUBL SL SCH ×3 (08:59→20:42)
[2022-12-21] MEDS: DOCUSATE SODIUM 100 MG CAP PO SCH ×2 (09:00→20:39)
[2022-12-21] MEDS: METOPROLOL SUCC 25MG EXT REL TAB PO SCH ×2 (09:00→20:40)
[2022-12-21] MEDS: DICLOFENAC SOD 1% GEL 100 GM TUBE EXT SCH ×2 (09:00→20:42)
[2022-12-21] MEDS: ADVANCED PROBIOTIC 1250 MG CAPSULE PO SCH ×3 (09:00→20:39)
[2022-12-21] MEDS: GABAPENTIN 800 MG TAB PO SCH ×3 (09:00→20:40)
[2022-12-21] MEDS: POLYETHYLENE (MIRALAX) 17 GM PACK PO SCH (09:00)
[2022-12-21] MEDS: FLUTICASONE PROPIONATE NA SPR 16 GM BTL SCH (09:01)
[2022-12-21] MEDS: INSULIN ASPART PER UNIT CHARGE SC SCH ×4 (09:07→20:37)
[2022-12-21] MEDS ORDERED: PHARMACY GLYCEMIC MGMT CONSULT PRN (09:50)
[2022-12-21] MEDS: LANTUS PER UNIT CHARGE SQ SCH (10:59)
--- NOTE | 2022-12-21 14:18 | Pharmacy Report ---
Pharmacy Glycemic Short Note 2 - Date of Service December 21, 2022 - Glycemic Short BSG Results (Last 24 hours): 12/20/22 12/20/22 12/21/22 17:01 20:38 05:50 Glucose 395 H* POC Glucose 223 H 183 H 12/21/22 12/21/22 07:34 11:52 Glucose POC Glucose 324 H* 160 H OUTPATIENT ANTIDIABETIC REGIMEN: * glipizide 10mg bid, Novolog TIDM SS, Lantus 50 units HS * HbA1c 8.0 12/18/22 ASSESSMENT: * Patient is a 52 YOM admitted for UTI/COPD exacerbation. Pharmacy is consulted to assist with glycemic management while inpatient. * Currently receiving IV Solumedrol 40 mg BID * Fasting BSG elevated at 395 this AM, moved Lantus from PM to AM to align with PO steroids when converted. Added scale of insulin this evening to be given if IV steroids given * Adjusted Novolog parameters to regimen that worked well during patient's last admission in October while on IV Solumedrol. PLAN FOR INPATIENT GLYCEMIC CONTROL: * Hold outpatient oral diabetes medications * Basal insulin * Lantus 50 units SQ QAM, Lantus 20-30-40 units HS based on BSG * Bolus insulin * NovoLog per scale ACHS or Q6hrs while NPO * Goal Range: Low 110 mg/dL - High 140 mg/dL * Correction Factor: 10 mg/dL/unit * Nutritional / Prandial insulin per carb ratio of 1 unit per 3 grams CHO consumed
--- NOTE | 2022-12-21 16:33 | Hospitalist Progress Note ---
Date of Service December 21, 2022 Assessment & Plan (1) AMS (altered mental status): Plan: Was admitted with acute confusion which resolved since admission Likely secondary to medications and infection has to be ruled out Appreciate neurology input and recommendation Seems to be at his baseline as of this morning The confusion is cleared Wanted to know what is causing the confusion-explained the possibility of multiple potential medications in conjunction Offered to cut down few of the medications to help but the patient disagreed No more confusion in the hospital No signs and no symptoms of infection (2) Acute UTI (urinary tract infection): Plan: Has indwelling Lloyd catheter UA is suggestive of infection but bacteria is negative Started on intravenous Zosyn and will wait for culture and sensitivity Urine is not showing any infection and Zosyn will be discontinued after 3 days Will discontinue Zosyn tomorrow or day after Zosyn has been discontinued (3) Chronic indwelling Lloyd catheter: Plan: Has lots of complaints regarding Lloyd catheter Getting recurrent UTI and cannot make any appointment as an outpatient to see a urologist We will get a urology evaluation while in the hospital (4) Syncope and collapse: Plan: Has been falling at home with questionable loss of consciousness for a few seconds as per the patient and significant other No arrhythmias on the monitor Appreciate cardiology input and recommendation EEG has been negative for any seizure activity We will get PT and OT evaluation-recommended home (5) Peripheral polyneuropathy: Plan: Has peripheral neuropathy likely secondary to diabetes (6) COPD exacerbation: Plan: History of COPD with ongoing smoking Has been on nebulized bronchodilator We will add intravenous Solu-Medrol He will need to have a short tapering course of steroid on discharge Wheezing is much improved Will have oral doxycycline for possible bronchitis (7) History of pulmonary embolism: Plan: Has been on Coumadin INR is therapeutic We will continue with Coumadin (8) 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 Admission and Anticipated Discharge Date Admission Date: December 17, 2022 Subjective 12/18/2022 The patient was seen and examined in telemetry unit He was admitted with frequent falls at home with acute confusion without fever and or chills He has been feeling better since admission but complains to have more pain at the back without radiation Complains of wheezing with more shortness of breath but has been saturating normally on room air 12/19/2022 The patient was seen and examined in telemetry unit He has been feeling better and the wheezing has improved a lot Denies any chest pain or palpitation and the swelling of the legs are improving too 12/20/2022 The patient was seen and examined in telemetry unit He has been feeling much better and denies any significant wheezing Says he is very weak and lethargic 12/21/2022 The patient was seen and examined in telemetry unit He has been complaining of wheezing and cough with yellow phlegm and wants to have some antibiotic for that if possible His wheezing is better Asking about possible cause for confusion His legs are much improved Review of Systems Review of Systems: All systems reviewed and are unremarkable except as noted below Respiratory: Minimal shortness of breath at rest with wheezing Physical Exam Physical Exam: Lying in bed without any acute distress Constitutional: well developed, well nourished, + ill appearing and + morbidly obese Eyes: PERRL, conjunctivae normal, anicteric sclerae ENMT: external ear and nose normal, oropharynx normal Neck: trachea midline, no thyromegaly Respiratory: + respiratory distress (Minimal distress at rest) Auscultation: + diminished lung sounds, + crackles (Bibasilar crackles) and + wheezes (Minimal wheezing bilaterally and anteriorly) Cardiovascular: Rate/Rhythm: regular rate and regular rhythm; not tachycardic Heart Sounds: normal S1 and normal S2; no murmur Extremities: + edema (1+ edema, chronic and bilateral with chronic skin changes) Gastrointestinal (Abdomen): Inspection/Auscultation: + abdomen distended and normal bowel sounds Percussion/Palpation: abdomen soft; abdomen nontender Musculoskeletal: No acute arthritis involving any joint Neurologic: moves all extremities; no focal motor deficits Psychiatric: Mood: + depressed mood Lymphatic: no cervical or axillary lymphadenopathy Results & Data Results & Data Vital Signs (Past 12 Hours) Vital Signs Temp Pulse Resp BP Pulse Ox O2 Del Method 12/21/22 15:59 36.8 C 77 21 145/84 H 94 Room Air 12/21/22 10:56 36.4 C L 76 20 155/81 H 93 Room Air 12/21/22 09:00 Room Air 12/21/22 07:35 36.5 C 69 22 162/79 H 99 Nasal Cannula Diagnostic Findings BMP 12/21/22 05:50 Sodium 137 Potassium 4.4 Chloride 98 Carbon Dioxide 35 H BUN 22 Creatinine 1.05 Glucose 395 H* Calcium 9.9 Medications Administered Current Inpatient Medications Albuterol (Albuterol Hfa 8 Gm Inhaler) 2 puffs INH Q4R PRN PRN Reason: Dyspnea Stop: 01/16/23 21:41 Albuterol (Albut/Ipratrop 3mg/0.5mg Neb 3 Ml Vial) 3 ml INH Q6H PRN; Protocol PRN Reason: Shortness Of Breath Or Wheezing Stop: 01/16/23 21:41 Aspirin (Aspirin 81 Mg Ectab) 81 mg PO QAM EMPERATRIZ Stop: 01/17/23 08:59 Last Admin: 12/21/22 08:59 Dose: 81 mg Atorvastatin Calcium (Atorvastatin 40 Mg Tab) 80 mg PO QPM EMPERATRIZ Stop: 01/16/23 21:41 Last Admin: 12/20/22 20:06 Dose: 80 mg Benzonatate (Benzonatate 100 Mg Capsule) 100 mg PO TID PRN PRN Reason: cough Stop: 01/16/23 21:41 Buprenorphine HCl (Buprenorphine Hcl 8 Mg Subl) 8 mg SL TID EMPERATRIZ Stop: 01/17/23 14:44 Last Admin: 12/21/22 14:38 Dose: 8 mg Cyclobenzaprine HCl (Cyclobenzaprine Hcl 10 Mg Tab) 10 mg PO BID PRN PRN Reason: Muscle Spasm Stop: 01/17/23 11:15 Last Admin: 12/21/22 08:59 Dose: 10 mg Dextrose (Dextrose 50% 50 Ml Syringe) 25 - 50 ml IV UD PRN; Protocol PRN Reason: Hypoglycemia Protocol Stop: 01/16/23 21:41 Diclofenac Sodium (Diclofenac Sod 1% Gel 100 Gm Tube) 2 gm EXT BID EMPERATRIZ; Protocol Stop: 01/16/23 21:41 Last Admin: 12/21/22 09:00 Dose: 2 gm Docusate Sodium (Docusate Sodium 100 Mg Cap) 100 mg PO BID EMPERATRIZ Stop: 01/16/23 21:41 Last Admin: 12/21/22 09:00 Dose: 100 mg Doxycycline Hyclate (Doxycycline Hyclate 100 Mg Cap) 100 mg PO BID [facility] Stop: 12/28/22 20:59 Duloxetine HCl (Duloxetine Hcl 60 Mg Cap) 60 mg PO DAILY EMPERATRIZ Stop: 01/17/23 08:59 Last Admin: 12/21/22 08:59 Dose: 60 mg Famotidine (Famotidine 20 Mg Tab) 20 mg PO DAILY EMPERATRIZ Stop: 01/17/23 08:59 Last Admin: 12/21/22 08:59 Dose: 20 mg Ferrous Sulfate (Ferrous Sulfate 325 Mg Tab) 325 mg PO DAILY EMPERATRIZ Stop: 01/17/23 08:59 Last Admin: 12/21/22 08:59 Dose: 325 mg Finasteride (Finasteride 5 Mg Tab) 5 mg PO QAM [facility] Stop: 01/17/23 08:59 Last Admin: 12/21/22 08:59 Dose: 5 mg Fluticasone Propionate (Fluticasone Propionate Na Spr 16 Gm Btl) 2 sprays NA DAILY EMPERATRIZ Stop: 01/17/23 08:59 Last Admin: 12/21/22 09:01 Dose: 2 sprays Folic Acid (Folic Acid 1 Mg Tab) 1 mg PO QAM [facility] Stop: 01/17/23 08:59 Last Admin: 12/21/22 08:59 Dose: 1 mg Furosemide (Furosemide 40 Mg Tab) 40 mg PO BID EMPERATRIZ Stop: 01/17/23 08:59 Last Admin: 12/18/22 08:31 Dose: 40 mg Furosemide (Furosemide 40 Mg/4 Ml Vial) 40 mg IV BID17 EMPERATRIZ Stop: 01/17/23 09:29 Last Admin: 12/21/22 08:58 Dose: 40 mg Gabapentin (Gabapentin 800 Mg Tab) 800 mg PO TID EMPERATRIZ Stop: 01/19/23 20:59 Last Admin: 12/21/22 14:38 Dose: 800 mg Glucagon (Glucagon For Inj 1 Mg Vial) 1 mg SQ UD PRN; Protocol PRN Reason: Hypoglycemia Protocol Stop: 01/16/23 21:41 Glucose (Glucose 10 Tab/Tube) 4 - 8 tab PO UD PRN; Protocol PRN Reason: Hypoglycemia Treatment Stop: 01/16/23 21:41 Glucose (Glucose 40% Gel 15 Gm Tube) 15 - 30 gm PO UD PRN; Protocol PRN Reason: Hypoglycemia Protocol Stop: 01/16/23 21:41 Guaifenesin/Dextromethorphan (Guaifenesin/Dextrom Syrup 100mg/10mg 5ml Udc) 5 ml PO Q6H PRN PRN Reason: cough Stop: 01/17/23 11:15 Last Admin: 12/21/22 11:22 Dose: 5 ml Hydroxyzine HCl (Hydroxyzine Hcl 25 Mg Tab) 25 mg PO QID PRN PRN Reason: Anxiety Stop: 01/16/23 21:41 Methylprednisolone 40 mg/ (Syringe) 0.64 mls @ 1.5 mls/min IV BID [facility] Stop: 01/17/23 11:44 Last Admin: 12/21/22 08:59 Dose: 1.5 mls/min Insulin Aspart (Insulin Aspart Per Unit Charge) 0 units SC ACHS [facility] Stop: 01/16/23 21:41 Last Admin: 12/21/22 12:59 Dose: 22 units Insulin Glargine (Lantus Per Unit Charge) 50 units SQ QAM [facility] Stop: 01/20/23 09:59 Last Admin: 12/21/22 10:59 Dose: 50 units Insulin Glargine (Lantus Per Unit Charge) 0 units SQ HS [facility]; Protocol Stop: 12/21/22 21:01 Isosorbide Dinitrate (Isosorbide Dinitrate 10 Mg Tab) 30 mg PO DAILY [facility] Stop: 01/17/23 08:59 Last Admin: 12/21/22 08:59 Dose: 30 mg Lactobacillus Acidophilus (Advanced Probiotic 1250 Mg Capsule) 2 cap PO TID [facility] Stop: 01/17/23 08:59 Last Admin: 12/21/22 14:38 Dose: 2 cap Lorazepam (Lorazepam 0.5 Mg Tab) 0.5 mg PO Q8H PRN PRN Reason: Anxiety Stop: 01/17/23 11:15 Last Admin: 12/20/22 20:36 Dose: 0.5 mg Magnesium Oxide (Magnesium Oxide 400 Mg Tab) 400 mg PO DAILY [facility] Stop: 01/17/23 08:59 Last Admin: 12/21/22 08:59 Dose: 400 mg Metoprolol Succinate (Metoprolol Succ 25mg Ext Rel Tab) 75 mg PO BID [facility] Stop: 01/16/23 21:41 Last Admin: 12/21/22 09:00 Dose: 75 mg Miscellaneous (Carbohydrates For Hypoglycemia ) 15 - 30 gm PO UD PRN PRN Reason: Hypoglycemia Protocol Stop: 01/16/23 21:41 Miscellaneous (Remove Nicoderm Patch) 1 each N/A DAILY@[id number] [facility] Stop: 01/17/23 08:58 Last Admin: 12/21/22 09:06 Dose: 1 each Miscellaneous Information (Pharmacy Glycemic Mgmt Consult) 1 each N/A UD PRN; Protocol PRN Reason: Consult Stop: 01/20/23 09:49 Multi-Ingredient Cream (Eucerin Cr 120 Gm Jar) 1 appln EXT BID PRN PRN Reason: DRY SKIN Stop: 01/17/23 11:16 Nicotine (Nicotine 21 Mg/24 Hr Tdsy) 21 mg TD QAM [facility] Stop: 01/17/23 08:59 Last Admin: 12/21/22 08:59 Dose: 21 mg Nitroglycerin (Nitroglycerin Sl 0.4 Mg/Tab Tab) 0.4 mg SL UD PRN PRN Reason: Chest Pain Stop: 01/16/23 21:41 Nystatin (Nystatin Powder 15gm Btl) 1 appln EXT TID PRN PRN Reason: Skin Irritation Stop: 01/16/23 21:41 Ondansetron HCl (Ondansetron Inj 2 Mg/Ml 2 Ml Vial) 4 mg IV Q6H PRN PRN Reason: Nausea Stop: 01/16/23 21:41 Last Admin: 12/18/22 10:30 Dose: 4 mg Pantoprazole Sodium (Pantoprazole 40 Mg Tab) 40 mg PO DAILYBB [facility] Stop: 01/17/23 06:29 Last Admin: 12/21/22 07:11 Dose: 40 mg Polyethylene Glycol (Polyethylene (Miralax) 17 Gm Pack) 17 gm PO DAILY PRN PRN Reason: Constipation Stop: 01/16/23 21:41 Polyethylene Glycol (Polyethylene (Miralax) 17 Gm Pack) 17 gm PO QAM [facility] Stop: 01/17/23 08:59 Last Admin: 12/21/22 09:00 Dose: 17 gm Potassium Chloride (Potassium Chloride Crtab 20 Meq Tabcr) 40 meq PO BID EMPERATRIZ Stop: 01/17/23 08:59 Last Admin: 12/21/22 08:59 Dose: 40 meq Promethazine HCl (Promethazine Hcl 25 Mg Tab) 12.5 mg PO BID PRN PRN Reason: nausea and vomiting Stop: 01/16/23 21:41 Last Admin: 12/18/22 17:10 Dose: 12.5 mg Sennosides (Senna 8.6 Mg Tab) 8.6 mg PO DAILY PRN PRN Reason: Constipation Stop: 01/16/23 21:41 Spironolactone (Spironolactone 25 Mg Tab) 25 mg PO [facility] Stop: 01/17/23 08:59 Last Admin: 12/21/22 08:59 Dose: 25 mg Tamsulosin HCl (Tamsulosin Hcl 0.4 Mg Cap) 0.8 mg PO [facility] Stop: 01/17/23 08:59 Last Admin: 12/21/22 08:59 Dose: 0.8 mg Vitamin D (Cholecalciferol 5,000 Units 125 Mcg Tab) 5,000 units PO [facility] Stop: 01/17/23 08:59 Last Admin: 12/21/22 08:59 Dose: 5,000 units Warfarin Sodium (Warfarin Sod 2.5 Mg Tab) 2.5 mg PO [id number] [facility] Stop: 01/16/23 21:41 Last Admin: 12/20/22 16:48 Dose: 2.5 mg Warfarin Sodium (Warfarin Sod 5 Mg Tab) 5 mg PO [id number] [facility] Stop: 01/17/23 15:59 Last Admin: 12/18/22 15:00 Dose: 5 mg (9) 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
[2022-12-21] MEDS: WARFARIN SOD 5 MG TAB PO SCH (17:40)
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
[2022-12-21] MEDS: ATORVASTATIN 40 MG TAB PO SCH (20:41)
[2022-12-21] MEDS: DOXYCYCLINE HYCLATE 100 MG CAP PO SCH (20:42)
[2022-12-21] MEDS ORDERED: LANTUS PER UNIT CHARGE SQ SCH (21:00)
[2022-12-21] MEDS: LORazepam 0.5 MG TAB PO PRN (23:35)
[2022-12-22] MEDS: PANTOprazole 40 MG TAB PO SCH (06:33)
[2022-12-22 06:49] LABS: INR 1.8 (0.9-1.1)
[2022-12-22] MEDS: POTASSIUM CHLORIDE CRTAB 20 MEQ TABCR PO SCH ×2 (08:27→20:54)
[2022-12-22] MEDS: TAMSULOSIN HCL 0.4 MG CAP PO SCH (08:27)
[2022-12-22] MEDS: SPIRONOLACTONE 25 MG TAB PO SCH (08:27)
--- NOTE | 2022-12-22 08:27 | Ultrasound Report ---
RENAL ULTRASOUND CLINICAL HISTORY: Urinary retention. COMPARISON STUDY: CT of the abdomen and pelvis October 26, 2022. TECHNIQUE: Sonography of the kidneys and the urinary bladder was performed. FINDINGS: Increased hepatic echogenicity is incidentally noted. There is no hydronephrosis. The right kidney measures 11.3 cm and the left measures 13.5 cm. There is a 3 mm right renal calculus. No cash l mass is identified by sonography. Left kidney is partially obscured due to suboptimal penetration. Bladder is collapsed and likely contains a Lloyd. IMPRESSION: 1. No hydronephrosis. 2. 3 mm nonobstructing right renal calculus. ACT 112: Negative or not required by law. Electronically signed by: Evelio Cobrin M.D. 12/22/2022 8:25 AM
[2022-12-22] MEDS: FOLIC ACID 1 MG TAB PO SCH (08:28)
[2022-12-22] MEDS: NICOTINE 21 MG/24 HR TDSY TD SCH (08:28)
[2022-12-22] MEDS: ADVANCED PROBIOTIC 1250 MG CAPSULE PO SCH ×3 (08:28→20:54)
[2022-12-22] MEDS: GABAPENTIN 800 MG TAB PO SCH ×3 (08:28→20:53)
[2022-12-22] MEDS: FERROUS SULFATE 325 MG TAB PO SCH (08:28)
[2022-12-22] MEDS: METOPROLOL SUCC 25MG EXT REL TAB PO SCH ×2 (08:28→20:55)
[2022-12-22] MEDS: DULoxetine HCL 60 MG CAP PO SCH (08:28)
[2022-12-22] MEDS: MAGNESIUM OXIDE 400 MG TAB PO SCH (08:29)
[2022-12-22] MEDS: ASPIRIN 81 MG ECTAB PO SCH (08:29)
[2022-12-22] MEDS: methylPREDNISolone 40 MG in SYRINGE 0 ML IV SCH (08:29)
[2022-12-22] MEDS: CHOLECALCIFEROL 5,000 UNITS 125 MCG TAB PO SCH (08:29)
[2022-12-22] MEDS: FAMOTIDINE 20 MG TAB PO SCH (08:29)
[2022-12-22] MEDS: FLUTICASONE PROPIONATE NA SPR 16 GM BTL SCH (08:29)
[2022-12-22] MEDS: DOCUSATE SODIUM 100 MG CAP PO SCH ×2 (08:29→20:54)
[2022-12-22] MEDS: ISOSORBIDE DINITRATE 10 MG TAB PO SCH (08:29)
[2022-12-22] MEDS: DICLOFENAC SOD 1% GEL 100 GM TUBE EXT SCH ×2 (08:29→20:55)
[2022-12-22] MEDS: DOXYCYCLINE HYCLATE 100 MG CAP PO SCH ×2 (08:29→20:53)
[2022-12-22] MEDS: buprenorphine HCL 8 MG SUBL SL SCH ×3 (08:30→20:58)
[2022-12-22] MEDS: POLYETHYLENE (MIRALAX) 17 GM PACK PO SCH (08:31)
[2022-12-22] MEDS: FUROSEMIDE 40 MG/4 ML VIAL IV SCH ×2 (08:44→17:18)
[2022-12-22] MEDS: CYCLOBENZAPRINE HCL 10 MG TAB PO PRN ×2 (08:44→20:55)
[2022-12-22] MEDS: ACETAMINOPHEN 1,000 MG/100 ML VIAL IV PRN ×2 (08:44→18:01)
[2022-12-22] MEDS: FINASTERIDE 5 MG TAB PO SCH (08:45)
[2022-12-22] MEDS: INSULIN ASPART PER UNIT CHARGE SC SCH ×4 (08:51→21:07)
[2022-12-22] MEDS: LANTUS PER UNIT CHARGE SQ SCH (08:52)
[2022-12-22] MEDS: guaiFENesin/DEXTROM SYRUP 100MG/10MG 5ML UDC PO PRN ×2 (12:50→21:04)
[2022-12-22] MEDS: LORazepam 0.5 MG TAB PO PRN ×2 (12:50→21:02)
--- NOTE | 2022-12-22 14:36 | Urology Progress Note ---
Date of Service December 22, 2022 Assessment & Plan (1) Chronic indwelling Lloyd catheter: (2) Acute UTI (urinary tract infection): Plan 52yo/M admitted with AMS, suspected UTI. Afebrile and hemodynamically stable. Labs reviewed 12/21- creatinine 1.05. Urine and blood cultures negative. Treated with Zosyn x3 days. Lloyd catheter currently intact, draining clear yellow urine. Renal ultrasound reviewed-no hydronephrosis, 3 mm nonobstructing right renal stone. Patient reports issues with recurrent infections and management of the chronic indwelling catheter. He is interested in a formal procedure while hospitalized as he would like to be able to go catheter free. We discussed that our recommendation would be for outpatient cystoscopy to more fully evaluate his urethra and prostate. Additional recommendations can be made at that time. He verbalized an understanding. We also discussed the risks and benefits of removing the Lloyd catheter. He has a history of urethral stricture requiring dilation and therefore removing the Lloyd catheter could result in another stricture and/or urinary retention. We discussed that his bladder is currently managed with the Lloyd catheter and our recommendation would be to maintain the catheter for now. He was agreeable. He is also requesting if possible for monthly catheter exchanges. Will arrange an outpatient follow-up with our service. Patient agreeable to plan, all questions were answered. Urology will sign-off. Please contact us with any further questions, concerns, or changes in patient's status. Admission and Anticipated Discharge Date Admission Date: December 17, 2022 Subjective Patient examined at bedside this AM. Awake, resting in bed on arrival. No acute distress. Lloyd catheter intact, draining clear yellow urine. Review of Systems Constitutional: as per Subjective / HPI Genitourinary: + as per Subjective / HPI Physical Exam Constitutional: + obese; no acute distress Respiratory: normal respiratory effort; no respiratory distress and no labored breathing Neurologic: moves all extremities Psychiatric: A+Ox3, euthymic affect Genitourinary: Lloyd catheter intact Results & Data Vital Signs (Past 12 Hours) Vital Signs Temp Pulse Pulse Resp BP Pulse Ox O2 Del Method 12/22/22 12:07 36.4 C L 65 18 122/61 98 Nasal Cannula 12/22/22 08:10 57 L 12/22/22 08:10 Room Air 12/22/22 08:04 36.6 C 63 20 157/80 H 100 Nasal Cannula 12/22/22 04:10 36.4 C L 61 14 143/86 H 93 Nasal Cannula O2 Flow Rate 12/22/22 12:07 4 12/22/22 08:10 12/22/22 08:10 12/22/22 08:04 4 12/22/22 04:10 4 PG Care Time/CCT Total # of Minutes Spent Total Time Spent with Patient: Total time spent is greater than 50% in coordination of care (as documented) at patient's floor/unit and/or counseling patient: Coding Level of Care Code 35331 SUB INP/OBS CARE 235MIN Diagnoses Chronic indwelling Lloyd catheter Z97.8 Acute UTI (urinary tract infection) N39.0
--- NOTE | 2022-12-22 15:30 | Hospitalist Progress Note ---
Date of Service December 22, 2022 Assessment & Plan (1) AMS (altered mental status): Plan: Likely secondary to use of multiple pain and other medications medications in conjunction Was admitted with acute confusion which resolved since admission Suspected UTI has been ruled out and no other infections Appreciate neurology input and recommendation Seems to be at his baseline as of this morning The confusion is cleared Offered to cut down few of the medications to help but the patient disagreed No more confusion in the hospital Remains clinically stable (2) Acute UTI (urinary tract infection): Plan: Has indwelling Lloyd catheter UA is suggestive of infection but bacteria is negative Started on intravenous Zosyn and will wait for culture and sensitivity Urine is not showing any infection and Zosyn will be discontinued after 3 days Will discontinue Zosyn tomorrow or day after Zosyn has been discontinued Appreciate urology input and recommendation Ultrasound of the kidneys did not show any significant disease but he did showed 3 mm nonobstructive stone in right kidney (3) Chronic indwelling Lloyd catheter: Plan: Has lots of complaints regarding Lolyd catheter Getting recurrent UTI and cannot make any appointment as an outpatient to see a urologist We will get a urology evaluation while in the hospital Awaiting urology recommendation (4) Syncope and collapse: Plan: Has been falling at home with questionable loss of consciousness for a few seconds as per the patient and significant other No arrhythmias on the monitor Appreciate cardiology input and recommendation EEG has been negative for any seizure activity We will get PT and OT evaluation-recommended home No episodes of syncope and/or collapse while in the hospital (5) Peripheral polyneuropathy: Plan: Has peripheral neuropathy likely secondary to diabetes (6) COPD exacerbation: Plan: History of COPD with ongoing smoking Has been on nebulized bronchodilator We will add intravenous Solu-Medrol Wheezing is much improved Will have oral doxycycline for possible bronchitis He will need to have a tapering dose of steroid on discharge (7) History of pulmonary embolism: Plan: Has been on Coumadin INR is therapeutic We will continue with Coumadin (8) 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 Admission and Anticipated Discharge Date Admission Date: December 17, 2022 Subjective 12/18/2022 The patient was seen and examined in telemetry unit He was admitted with frequent falls at home with acute confusion without fever and or chills He has been feeling better since admission but complains to have more pain at the back without radiation Complains of wheezing with more shortness of breath but has been saturating normally on room air 12/19/2022 The patient was seen and examined in telemetry unit He has been feeling better and the wheezing has improved a lot Denies any chest pain or palpitation and the swelling of the legs are improving too 12/20/2022 The patient was seen and examined in telemetry unit He has been feeling much better and denies any significant wheezing Says he is very weak and lethargic 12/21/2022 The patient was seen and examined in telemetry unit He has been complaining of wheezing and cough with yellow phlegm and wants to have some antibiotic for that if possible His wheezing is better Asking about possible cause for confusion His legs are much improved 12/22/2022 The patient was seen and examined in telemetry unit He has been complaining of more cough and wheezing today Has been waiting to be evaluated by the urologist His renal ultrasound was unremarkable Denies any fever and or chills, no palpitations and or chest pain His legs are improving Review of Systems Review of Systems: All systems reviewed and are unremarkable except as noted below Respiratory: Minimal shortness of breath at rest with wheezing Physical Exam Physical Exam: Lying in bed without any acute distress Constitutional: well developed, well nourished, + ill appearing and + morbidly obese Eyes: PERRL, conjunctivae normal, anicteric sclerae ENMT: external ear and nose normal, oropharynx normal Neck: trachea midline, no thyromegaly Respiratory: + respiratory distress (Minimal distress at rest) Auscultation: + diminished lung sounds, + crackles (Bibasilar crackles) and + wheezes (Minimal wheezing bilaterally and anteriorly) Cardiovascular: Rate/Rhythm: regular rate and regular rhythm; not tachycardic Heart Sounds: normal S1 and normal S2; no murmur Extremities: + edema (1+ edema, chronic and bilateral with chronic skin changes) Gastrointestinal (Abdomen): Inspection/Auscultation: + abdomen distended and normal bowel sounds Percussion/Palpation: abdomen soft; abdomen nontender Musculoskeletal: Swelling of the legs are much improved. Chronic skin changes in the lower legs, no acute arthritis involving any of the joints Neurologic: moves all extremities; no focal motor deficits Psychiatric: Mood: + depressed mood Lymphatic: no cervical or axillary lymphadenopathy Results & Data Results & Data Vital Signs (Past 12 Hours) Vital Signs Temp Pulse Pulse Resp BP Pulse Ox O2 Del Method 12/22/22 12:07 36.4 C L 65 18 122/61 98 Nasal Cannula 12/22/22 08:10 57 L 12/22/22 08:10 Room Air 12/22/22 08:04 36.6 C 63 20 157/80 H 100 Nasal Cannula 12/22/22 04:10 36.4 C L 61 14 143/86 H 93 Nasal Cannula O2 Flow Rate 12/22/22 12:07 4 12/22/22 08:10 12/22/22 08:10 12/22/22 08:04 4 12/22/22 04:10 4 Medications Administered Current Inpatient Medications Albuterol (Albuterol Hfa 8 Gm Inhaler) 2 puffs INH Q4R PRN PRN Reason: Dyspnea Stop: 01/16/23 21:41 Albuterol (Albut/Ipratrop 3mg/0.5mg Neb 3 Ml Vial) 3 ml INH Q6H PRN; Protocol PRN Reason: Shortness Of Breath Or Wheezing Stop: 01/16/23 21:41 Aspirin (Aspirin 81 Mg Ectab) 81 mg PO QAM EMPERATRIZ Stop: 01/17/23 08:59 Last Admin: 12/22/22 08:29 Dose: 81 mg Atorvastatin Calcium (Atorvastatin 40 Mg Tab) 80 mg PO QPM EMPERATRIZ Stop: 01/16/23 21:41 Last Admin: 12/21/22 20:41 Dose: 80 mg Benzonatate (Benzonatate 100 Mg Capsule) 100 mg PO TID PRN PRN Reason: cough Stop: 01/16/23 21:41 Buprenorphine HCl (Buprenorphine Hcl 8 Mg Subl) 8 mg SL TID EMPERATRIZ Stop: 01/17/23 14:44 Last Admin: 12/22/22 14:12 Dose: 8 mg Cyclobenzaprine HCl (Cyclobenzaprine Hcl 10 Mg Tab) 10 mg PO BID PRN PRN Reason: Muscle Spasm Stop: 01/17/23 11:15 Last Admin: 12/22/22 08:44 Dose: 10 mg Dextrose (Dextrose 50% 50 Ml Syringe) 25 - 50 ml IV UD PRN; Protocol PRN Reason: Hypoglycemia Protocol Stop: 01/16/23 21:41 Diclofenac Sodium (Diclofenac Sod 1% Gel 100 Gm Tube) 2 gm EXT BID [facility]; Protocol Stop: 01/16/23 21:41 Last Admin: 12/22/22 08:29 Dose: 2 gm Docusate Sodium (Docusate Sodium 100 Mg Cap) 100 mg PO BID EMPERATRIZ Stop: 01/16/23 21:41 Last Admin: 12/22/22 08:29 Dose: 100 mg Doxycycline Hyclate (Doxycycline Hyclate 100 Mg Cap) 100 mg PO BID [facility] Stop: 12/28/22 20:59 Last Admin: 12/22/22 08:29 Dose: 100 mg Duloxetine HCl (Duloxetine Hcl 60 Mg Cap) 60 mg PO DAILY [facility] Stop: 01/17/23 08:59 Last Admin: 12/22/22 08:28 Dose: 60 mg Famotidine (Famotidine 20 Mg Tab) 20 mg PO DAILY [facility] Stop: 01/17/23 08:59 Last Admin: 12/22/22 08:29 Dose: 20 mg Ferrous Sulfate (Ferrous Sulfate 325 Mg Tab) 325 mg PO DAILY [facility] Stop: 01/17/23 08:59 Last Admin: 12/22/22 08:28 Dose: 325 mg Finasteride (Finasteride 5 Mg Tab) 5 mg PO QAM [facility] Stop: 01/17/23 08:59 Last Admin: 12/22/22 08:45 Dose: 5 mg Fluticasone Propionate (Fluticasone Propionate Na Spr 16 Gm Btl) 2 sprays NA DAILY [facility] Stop: 01/17/23 08:59 Last Admin: 12/22/22 08:29 Dose: 2 sprays Folic Acid (Folic Acid 1 Mg Tab) 1 mg PO QAM [facility] Stop: 01/17/23 08:59 Last Admin: 12/22/22 08:28 Dose: 1 mg Furosemide (Furosemide 40 Mg Tab) 40 mg PO BID [facility] Stop: 01/17/23 08:59 Last Admin: 12/18/22 08:31 Dose: 40 mg Furosemide (Furosemide 40 Mg/4 Ml Vial) 40 mg IV BID17 [facility] Stop: 01/17/23 09:29 Last Admin: 12/22/22 08:44 Dose: 40 mg Gabapentin (Gabapentin 800 Mg Tab) 800 mg PO TID [facility] Stop: 01/19/23 20:59 Last Admin: 12/22/22 14:12 Dose: 800 mg Glucagon (Glucagon For Inj 1 Mg Vial) 1 mg SQ UD PRN; Protocol PRN Reason: Hypoglycemia Protocol Stop: 01/16/23 21:41 Glucose (Glucose 10 Tab/Tube) 4 - 8 tab PO UD PRN; Protocol PRN Reason: Hypoglycemia Treatment Stop: 01/16/23 21:41 Glucose (Glucose 40% Gel 15 Gm Tube) 15 - 30 gm PO UD PRN; Protocol PRN Reason: Hypoglycemia Protocol Stop: 01/16/23 21:41 Guaifenesin/Dextromethorphan (Guaifenesin/Dextrom Syrup 100mg/10mg 5ml Udc) 5 ml PO Q6H PRN PRN Reason: cough Stop: 01/17/23 11:15 Last Admin: 12/22/22 12:50 Dose: 5 ml Hydroxyzine HCl (Hydroxyzine Hcl 25 Mg Tab) 25 mg PO QID PRN PRN Reason: Anxiety Stop: 01/16/23 21:41 Methylprednisolone 40 mg/ (Syringe) 0.64 mls @ 1.5 mls/min IV BID [facility] Stop: 01/17/23 11:44 Last Admin: 12/22/22 08:29 Dose: 1.5 mls/min Acetaminophen (Ofirmev) 1,000 mg in 100 mls @ 400 mls/hr IV Q8H PRN PRN Reason: Pain or Fever Stop: 12/24/22 20:53 Last Infusion: 12/22/22 09:43 Dose: Infused Insulin Aspart (Insulin Aspart Per Unit Charge) 0 units SC ACHS [facility] Stop: 01/16/23 21:41 Last Admin: 12/22/22 12:47 Dose: 45 units Insulin Glargine (Lantus Per Unit Charge) 50 units SQ QAM [facility] Stop: 01/20/23 09:59 Last Admin: 12/22/22 08:52 Dose: 50 units Insulin Glargine (Lantus Per Unit Charge) 0 units SQ HS [facility]; Protocol Stop: 12/22/22 21:01 Isosorbide Dinitrate (Isosorbide Dinitrate 10 Mg Tab) 30 mg PO DAILY [facility] Stop: 01/17/23 08:59 Last Admin: 12/22/22 08:29 Dose: 30 mg Lactobacillus Acidophilus (Advanced Probiotic 1250 Mg Capsule) 2 cap PO TID [facility] Stop: 01/17/23 08:59 Last Admin: 12/22/22 14:12 Dose: 2 cap Lorazepam (Lorazepam 0.5 Mg Tab) 0.5 mg PO Q8H PRN PRN Reason: Anxiety Stop: 01/17/23 11:15 Last Admin: 12/22/22 12:50 Dose: 0.5 mg Magnesium Oxide (Magnesium Oxide 400 Mg Tab) 400 mg PO DAILY [facility] Stop: 01/17/23 08:59 Last Admin: 12/22/22 08:29 Dose: 400 mg Metoprolol Succinate (Metoprolol Succ 25mg Ext Rel Tab) 75 mg PO BID [facility] Stop: 01/16/23 21:41 Last Admin: 12/22/22 08:28 Dose: 75 mg Miscellaneous (Carbohydrates For Hypoglycemia ) 15 - 30 gm PO UD PRN PRN Reason: Hypoglycemia Protocol Stop: 01/16/23 21:41 Miscellaneous (Remove Nicoderm Patch) 1 each N/A DAILY@0859 [facility] Stop: 01/17/23 08:58 Last Admin: 12/22/22 08:30 Dose: 1 each Miscellaneous Information (Pharmacy Glycemic Mgmt Consult) 1 each N/A UD PRN; Protocol PRN Reason: Consult Stop: 01/20/23 09:49 Multi-Ingredient Cream (Eucerin Cr 120 Gm Jar) 1 appln EXT BID PRN PRN Reason: DRY SKIN Stop: 01/17/23 11:16 Nicotine (Nicotine 21 Mg/24 Hr Tdsy) 21 mg TD QAM [facility] Stop: 01/17/23 08:59 Last Admin: 12/22/22 08:28 Dose: 21 mg Nitroglycerin (Nitroglycerin Sl 0.4 Mg/Tab Tab) 0.4 mg SL UD PRN PRN Reason: Chest Pain Stop: 01/16/23 21:41 Nystatin (Nystatin Powder 15gm Btl) 1 appln EXT TID PRN PRN Reason: Skin Irritation Stop: 01/16/23 21:41 Ondansetron HCl (Ondansetron Inj 2 Mg/Ml 2 Ml Vial) 4 mg IV Q6H PRN PRN Reason: Nausea Stop: 01/16/23 21:41 Last Admin: 12/18/22 10:30 Dose: 4 mg Pantoprazole Sodium (Pantoprazole 40 Mg Tab) 40 mg PO DAILYBB [facility] Stop: 01/17/23 06:29 Last Admin: 12/22/22 06:33 Dose: 40 mg Polyethylene Glycol (Polyethylene (Miralax) 17 Gm Pack) 17 gm PO DAILY PRN PRN Reason: Constipation Stop: 01/16/23 21:41 Polyethylene Glycol (Polyethylene (Miralax) 17 Gm Pack) [facility]: 01/17/23 08:59 Last Admin: 12/22/22 08:31 Dose: Not Given Potassium Chloride (Potassium Chloride Crtab 20 Meq Tabcr) 40 meq PO BID [facility] Stop: 01/17/23 08:59 Last Admin: 12/22/22 08:27 Dose: 40 meq Promethazine HCl (Promethazine Hcl 25 Mg Tab) 12.5 mg PO BID PRN PRN Reason: nausea and vomiting Stop: 01/16/23 21:41 Last Admin: 12/18/22 17:10 Dose: 12.5 mg Sennosides (Senna 8.6 Mg Tab) 8.6 mg PO DAILY PRN PRN Reason: Constipation Stop: 01/16/23 21:41 Spironolactone (Spironolactone 25 Mg Tab) 25 mg PO [facility] Stop: 01/17/23 08:59 Last Admin: 12/22/22 08:27 Dose: 25 mg Tamsulosin HCl (Tamsulosin Hcl 0.4 Mg Cap) 0.8 mg PO [facility] Stop: 01/17/23 08:59 Last Admin: 12/22/22 08:27 Dose: 0.8 mg Vitamin D (Cholecalciferol 5,000 Units 125 Mcg Tab) 5,000 units PO [facility] Stop: 01/17/23 08:59 Last Admin: 12/22/22 08:29 Dose: 5,000 units Warfarin Sodium (Warfarin Sod 2.5 Mg Tab) 2.5 mg PO [id number] [facility] Stop: 01/16/23 21:41 Last Admin: 12/20/22 16:48 Dose: 2.5 mg Warfarin Sodium (Warfarin Sod 5 Mg Tab) 5 mg PO [id number] [facility] Stop: 01/17/23 15:59 Last Admin: 12/21/22 17:40 Dose: 5 mg (9) 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
[2022-12-22] MEDS: WARFARIN SOD 2.5 MG TAB PO SCH (17:17)
[2022-12-22] MEDS: ATORVASTATIN 40 MG TAB PO SCH (20:54)
[2022-12-22] MEDS ORDERED: LANTUS PER UNIT CHARGE SQ SCH (21:00)
[2022-12-23] MEDS: ACETAMINOPHEN 1,000 MG/100 ML VIAL IV PRN ×3 (02:10→18:26)
[2022-12-23] MEDS: PANTOprazole 40 MG TAB PO SCH (06:30)
[2022-12-23 06:35] LABS: Hematocrit (blood only) 42.9 % (42.0-52.0); Hemoglobin 13.7 g/dl (14.0-18.0); Mean Corpuscular Hemoglobin 27.7 pg (25.0-34.0); Mean Corpuscular Hgb Conc 31.9 g/dL (32.0-36.0); Mean Corpuscular Volume 86.8 fL (80.0-100.0); Mean Platelet Volume 10.4 fL (9.4-12.4); Platelet Count 225 K/uL (130-400); RDW Coefficient of Variation 17.9 % (11.5-14.5); RDW Standard Deviation 56.1 fL (36.4-46.3); Red Blood Count 4.94 M/uL (4.70-6.10); White Blood Count 17.07 K/ul (4.8-10.8)
[2022-12-23 06:52] LABS: BUN Creatinine Ratio 23.7 (10-20); Creatinine Clr Calc Pharmacy 133.4 ml/min; Est GFR (African American) 81.7 ml/min; Est GFR (Non-African American) 70.5 ml/min
[2022-12-23 07:02] LABS: Basophils # (auto) 0.08 K/uL (0-0.2); Basophils % (auto) 0.5 %; Eosinophils # (auto) 0.07 K/uL (0-0.50); Eosinophils % (auto) 0.4 %; Immature Granulocytes % (auto) 0.6 %; Lymphocytes # (auto) 5.34 K/uL (1.2-3.4); Lymphocytes % (auto) 31.3 %; Monocytes # (auto) 0.97 K/uL (0.11-0.59); Monocytes % (auto) 5.7 %; Neutrophils # (auto) 10.51 K/uL (1.40-6.50); Neutrophils % (auto) 61.5 %
--- NOTE | 2022-12-23 08:40 | Pharmacy Report ---
Pharmacy Glycemic Short Note 2 - Date of Service December 23, 2022 - Glycemic Short BSG Results (Last 24 hours): 12/22/22 12/22/22 12/22/22 11:41 16:28 20:06 Glucose POC Glucose 224 H 134 H 94 12/23/22 12/23/22 06:08 07:59 Glucose 217 H POC Glucose 194 H OUTPATIENT ANTIDIABETIC REGIMEN: * glipizide 10mg bid, Novolog TIDM SS, Lantus 50 units HS HbA1c 8.0 12/18/22 ASSESSMENT: 12/23/22: * BSGs improved throughout the day yesterday (288, 224, 134, and 94 mg/dL) * Fasting BSG of 194 mg/dL this morning * Steroids changed from methylprednisolone 40 mg IV BID to prednisone 40 mg PO daily starting today (12/23) * Will change Lantus to 50 units daily with prednisone * Will maintain current Novolog parameters for now, may need to loosen based on today's trend 12/21/22: * Patient is a 52 YOM admitted for UTI/COPD exacerbation. Pharmacy is consulted to assist with glycemic management while inpatient. * Currently receiving IV Solumedrol 40 mg BID * Fasting BSG elevated at 395 this AM, moved Lantus from PM to AM to align with PO steroids when converted. Added scale of insulin this evening to be given if IV steroids given * Adjusted Novolog parameters to regimen that worked well during patient's last admission in October while on IV Solumedrol. PLAN FOR INPATIENT GLYCEMIC CONTROL: * Hold outpatient oral diabetes medications * Basal insulin * Lantus 50 units SQ QAM with prednisone * Bolus insulin * NovoLog per scale ACHS or Q6hrs while NPO * Goal Range: Low 110 mg/dL - High 140 mg/dL * Correction Factor: 10 mg/dL/unit * Nutritional / Prandial insulin per carb ratio of 1 unit per 3 grams CHO consumed
[2022-12-23] MEDS: buprenorphine HCL 8 MG SUBL SL SCH ×3 (08:49→20:22)
[2022-12-23] MEDS: FERROUS SULFATE 325 MG TAB PO SCH (08:50)
[2022-12-23] MEDS: FINASTERIDE 5 MG TAB PO SCH (08:50)
[2022-12-23] MEDS: ADVANCED PROBIOTIC 1250 MG CAPSULE PO SCH ×3 (08:50→20:24)
[2022-12-23] MEDS: SPIRONOLACTONE 25 MG TAB PO SCH (08:50)
[2022-12-23] MEDS: FOLIC ACID 1 MG TAB PO SCH (08:50)
[2022-12-23] MEDS: DOXYCYCLINE HYCLATE 100 MG CAP PO SCH ×2 (08:50→20:23)
[2022-12-23] MEDS: ASPIRIN 81 MG ECTAB PO SCH (08:51)
[2022-12-23] MEDS: DOCUSATE SODIUM 100 MG CAP PO SCH ×2 (08:51→20:22)
[2022-12-23] MEDS: CHOLECALCIFEROL 5,000 UNITS 125 MCG TAB PO SCH (08:51)
[2022-12-23] MEDS: FAMOTIDINE 20 MG TAB PO SCH (08:51)
[2022-12-23] MEDS: TAMSULOSIN HCL 0.4 MG CAP PO SCH (08:51)
[2022-12-23] MEDS: MAGNESIUM OXIDE 400 MG TAB PO SCH (08:51)
[2022-12-23] MEDS: DULoxetine HCL 60 MG CAP PO SCH (08:51)
[2022-12-23] MEDS: ISOSORBIDE DINITRATE 10 MG TAB PO SCH (08:51)
[2022-12-23] MEDS: NICOTINE 21 MG/24 HR TDSY TD SCH (08:52)
[2022-12-23] MEDS: GABAPENTIN 800 MG TAB PO SCH ×3 (08:52→20:24)
[2022-12-23] MEDS: METOPROLOL SUCC 25MG EXT REL TAB PO SCH ×2 (08:52→20:25)
[2022-12-23] MEDS: POTASSIUM CHLORIDE CRTAB 20 MEQ TABCR PO SCH ×2 (08:52→20:23)
[2022-12-23] MEDS: POLYETHYLENE (MIRALAX) 17 GM PACK PO SCH (08:53)
[2022-12-23] MEDS: DICLOFENAC SOD 1% GEL 100 GM TUBE EXT SCH ×2 (08:53→20:25)
[2022-12-23] MEDS: LANTUS PER UNIT CHARGE SQ SCH (08:54)
[2022-12-23] MEDS: INSULIN ASPART PER UNIT CHARGE SC SCH ×4 (08:54→20:29)
[2022-12-23] MEDS: FLUTICASONE PROPIONATE NA SPR 16 GM BTL SCH (08:55)
[2022-12-23] MEDS ORDERED: predniSONE 20 MG TAB PO SCH (09:00)
[2022-12-23] MEDS: FUROSEMIDE 40 MG/4 ML VIAL IV SCH ×2 (09:11→17:00)
[2022-12-23] MEDS: LORazepam 0.5 MG TAB PO PRN ×2 (09:11→20:32)
[2022-12-23] MEDS: CYCLOBENZAPRINE HCL 10 MG TAB PO PRN ×2 (09:11→20:22)
[2022-12-23] MEDS: ALBUTEROL HFA 8 GM INHALER INH PRN ×2 (09:56→20:38)
[2022-12-23] MEDS: guaiFENesin/DEXTROM SYRUP 100MG/10MG 5ML UDC PO PRN ×2 (10:39→21:07)
[2022-12-23] MEDS: WARFARIN SOD 2.5 MG TAB PO SCH (17:00)
[2022-12-23] MEDS: methylPREDNISolone 40 MG in SYRINGE 0 ML IV SCH (20:23)
[2022-12-23] MEDS: ATORVASTATIN 40 MG TAB PO SCH (20:26)
--- NOTE | 2022-12-23 20:30 | Hospitalist Progress Note ---
Date of Service December 23, 2022 Assessment & Plan (1) AMS (altered mental status): Plan: Cleared. Now back to baseline. Possibly multifactorial (2) Acute UTI (urinary tract infection): Plan: Has indwelling Fontaine catheter. Urine clx negative and IV antibiotic has been discontinued. (3) Chronic indwelling Fontaine catheter: Plan: Continue fontaine at discharge- change at least every month to prevent further UTIs Seen by uro- OP follow up for further management Ultrasound of the kidneys did not show any significant disease but he did showed 3 mm nonobstructive stone in right kidney (4) Syncope and collapse: Plan: Has been falling at home with questionable loss of consciousness for a few seconds as per the patient and significant other No arrhythmias on the monitor Appreciate cardiology input and recommendation EEG has been negative for any seizure activity Seen by PT/OT-recommended home No episodes of syncope and/or collapse while in the hospital (5) COPD exacerbation: Plan: continue intravenous Solu-Medrol, doxy. PO pred at discharge (6) History of pulmonary embolism: Plan: Has been on Coumadin, INR is therapeutic We will continue with Coumadin (7) 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: Plan: continue lantus, SSI. 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 PT OT evaluated. continue pain meds. Other significant medical condition remained stable A total of 60 minutes spent on patient examination, reviewing of the medications, labs, imaging studies and discussing plan of care. All questions were answered. Admission and Anticipated Discharge Date Admission Date: December 17, 2022 Subjective Patient was seen and examined bedside. States he is feeling not so good today. States he is fatigued with no energy. Still has wheezes and would like solumedrol while here since it helps him more. He would like to get discharged tomorrow morning and would like to continue steroids and antibiotics at discharge. Review of Systems Review of Systems: All systems reviewed & are unremarkable except as noted in Subjective Physical Exam Physical Exam: General: Morbidly obese, Sitting comfortably in bed, not in distress, on NC Chest: Bilateral wheezes and rhonchi CVS: Regular rate and rhythm, normal heart sounds, no murmur Abdomen: Soft, non tender, not distended, normal bowel sounds Neuro: Awake, alert, oriented, conversing well, non focal Extremities: No cyanosis, clubbing, chronic edema improved Fontaine with clear urine Results & Data Results & Data Vital Signs (Past 12 Hours) Vital Signs Temp Pulse Pulse Resp BP Pulse Ox O2 Del Method 12/23/22 19:00 36.7 C 82 17 148/76 H 97 Room Air 12/23/22 15:39 37.1 C 77 18 124/69 98 Nasal Cannula 12/23/22 11:45 36.4 C L 78 18 129/74 99 Nasal Cannula 12/23/22 10:10 70 18 99 Nasal Cannula 12/23/22 09:00 59 L 12/23/22 09:00 Nasal Cannula O2 Flow Rate 12/23/22 19:00 12/23/22 15:39 4 12/23/22 11:45 5 12/23/22 10:10 4 12/23/22 09:00 12/23/22 09:00 2 Laboratory Results Short CBC 12/23/22 Range/Units 06:08 WBC 17.07 H (4.8-10.8) K/ul Hgb 13.7 L (14.0-18.0) g/dl Hct 42.9 (42.0-52.0) % Plt Count 225 (130-400) K/uL BMP 12/23/22 06:08 Sodium 138 Potassium 4.0 Chloride 100 Carbon Dioxide 36 H BUN 28 H Creatinine 1.18 Glucose 217 H Calcium 10.0 Medications Administered Current Inpatient Medications Albuterol (Albuterol Hfa 8 Gm Inhaler) 2 puffs INH Q4R PRN PRN Reason: Dyspnea Stop: 01/16/23 21:41 Last Admin: 12/23/22 09:56 Dose: 2 puffs Albuterol (Albut/Ipratrop 3mg/0.5mg Neb 3 Ml Vial) 3 ml INH Q6H PRN; Protocol PRN Reason: Shortness Of Breath Or Wheezing Stop: 01/16/23 21:41 Aspirin (Aspirin 81 Mg Ectab) 81 mg PO QAM [facility] Stop: 01/17/23 08:59 Last Admin: 12/23/22 08:51 Dose: 81 mg Atorvastatin Calcium (Atorvastatin 40 Mg Tab) 80 mg PO QPM [facility] Stop: 01/16/23 21:41 Last Admin: 12/22/22 20:54 Dose: 80 mg Benzonatate (Benzonatate 100 Mg Capsule) 100 mg PO TID PRN PRN Reason: cough Stop: 01/16/23 21:41 Buprenorphine HCl (Buprenorphine Hcl 8 Mg Subl) 8 mg SL TID [facility] Stop: 01/17/23 14:44 Last Admin: 12/23/22 13:45 Dose: 8 mg Cyclobenzaprine HCl (Cyclobenzaprine Hcl 10 Mg Tab) 10 mg PO BID PRN PRN Reason: Muscle Spasm Stop: 01/17/23 11:15 Last Admin: 12/23/22 09:11 Dose: 10 mg Dextrose (Dextrose 50% 50 Ml Syringe) 25 - 50 ml IV UD PRN; Protocol PRN Reason: Hypoglycemia Protocol Stop: 01/16/23 21:41 Diclofenac Sodium (Diclofenac Sod 1% Gel 100 Gm Tube) 2 gm EXT BID [facility]; Protocol Stop: 01/16/23 21:41 Last Admin: 12/23/22 08:53 Dose: 2 gm Docusate Sodium (Docusate Sodium 100 Mg Cap) 100 mg PO BID [facility] Stop: 01/16/23 21:41 Last Admin: 12/23/22 08:51 Dose: 100 mg Doxycycline Hyclate (Doxycycline Hyclate 100 Mg Cap) 100 mg PO BID [facility] Stop: 12/28/22 20:59 Last Admin: 12/23/22 08:50 Dose: 100 mg Duloxetine HCl (Duloxetine Hcl 60 Mg Cap) 60 mg PO DAILY [facility] Stop: 01/17/23 08:59 Last Admin: 12/23/22 08:51 Dose: 60 mg Famotidine (Famotidine 20 Mg Tab) 20 mg PO DAILY [facility] Stop: 01/17/23 08:59 Last Admin: 12/23/22 08:51 Dose: 20 mg Ferrous Sulfate (Ferrous Sulfate 325 Mg Tab) 325 mg PO DAILY [facility] Stop: 01/17/23 08:59 Last Admin: 12/23/22 08:50 Dose: 325 mg Finasteride (Finasteride 5 Mg Tab) 5 mg PO QAM [facility] Stop: 01/17/23 08:59 Last Admin: 12/23/22 08:50 Dose: 5 mg Fluticasone Propionate (Fluticasone Propionate Na Spr 16 Gm Btl) 2 sprays NA DAILY [facility] Stop: 01/17/23 08:59 Last Admin: 12/23/22 08:55 Dose: 2 sprays Folic Acid (Folic Acid 1 Mg Tab) 1 mg PO QAM [facility] Stop: 01/17/23 08:59 Last Admin: 12/23/22 08:50 Dose: 1 mg Furosemide (Furosemide 40 Mg Tab) 40 mg PO BID [facility] Stop: 01/17/23 08:59 Last Admin: 12/18/22 08:31 Dose: 40 mg Furosemide (Furosemide 40 Mg/4 Ml Vial) 40 mg IV BID17 [facility] Stop: 01/17/23 09:29 Last Admin: 12/23/22 17:00 Dose: 40 mg Gabapentin (Gabapentin 800 Mg Tab) 800 mg PO TID [facility] Stop: 01/19/23 20:59 Last Admin: 12/23/22 13:45 Dose: 800 mg Glucagon (Glucagon For Inj 1 Mg Vial) 1 mg SQ UD PRN; Protocol PRN Reason: Hypoglycemia Protocol Stop: 01/16/23 21:41 Glucose (Glucose 10 Tab/Tube) 4 - 8 tab PO UD PRN; Protocol PRN Reason: Hypoglycemia Treatment Stop: 01/16/23 21:41 Glucose (Glucose 40% Gel 15 Gm Tube) 15 - 30 gm PO UD PRN; Protocol PRN Reason: Hypoglycemia Protocol Stop: 01/16/23 21:41 Guaifenesin/Dextromethorphan (Guaifenesin/Dextrom Syrup 100mg/10mg 5ml Udc) 5 ml PO Q6H PRN PRN Reason: cough Stop: 01/17/23 11:15 Last Admin: 12/23/22 10:39 Dose: 5 ml Hydroxyzine HCl (Hydroxyzine Hcl 25 Mg Tab) 25 mg PO QID PRN PRN Reason: Anxiety Stop: 01/16/23 21:41 Acetaminophen (Ofirmev) 1,000 mg in 100 mls @ 400 mls/hr IV Q8H PRN PRN Reason: Pain or Fever Stop: 12/24/22 20:53 Last Infusion: 12/23/22 18:46 Dose: Infused Methylprednisolone 40 mg/ (Syringe) 0.64 mls @ 1.5 mls/min IV BID [facility] Stop: 01/22/23 20:59 Insulin Aspart (Insulin Aspart Per Unit Charge) 0 units SC ACHS [facility] Stop: 01/16/23 21:41 Last Admin: 12/23/22 18:02 Dose: 38 units Insulin Glargine (Lantus Per Unit Charge) 50 units SQ QAM [facility] Stop: 01/20/23 09:59 Last Admin: 12/23/22 08:54 Dose: 50 units Insulin Glargine (Lantus Per Unit Charge) 0 units SQ HS [facility]; Protocol Stop: 01/22/23 20:59 Isosorbide Dinitrate (Isosorbide Dinitrate 10 Mg Tab) 30 mg PO DAILY [facility] Stop: 01/17/23 08:59 Last Admin: 12/23/22 08:51 Dose: 30 mg Lactobacillus Acidophilus (Advanced Probiotic 1250 Mg Capsule) 2 cap PO TID [facility] Stop: 01/17/23 08:59 Last Admin: 12/23/22 13:45 Dose: 2 cap Lorazepam (Lorazepam 0.5 Mg Tab) 0.5 mg PO Q8H PRN PRN Reason: Anxiety Stop: 01/17/23 11:15 Last Admin: 12/23/22 09:11 Dose: 0.5 mg Magnesium Oxide (Magnesium Oxide 400 Mg Tab) 400 mg PO DAILY [facility] Stop: 01/17/23 08:59 Last Admin: 12/23/22 08:51 Dose: 400 mg Metoprolol Succinate (Metoprolol Succ 25mg Ext Rel Tab) 75 mg PO BID [facility] Stop: 01/16/23 21:41 Last Admin: 12/23/22 08:52 Dose: 75 mg Miscellaneous (Carbohydrates For Hypoglycemia ) 15 - 30 gm PO UD PRN PRN Reason: Hypoglycemia Protocol Stop: 01/16/23 21:41 Miscellaneous (Remove Nicoderm Patch) 1 each N/A DAILY@0859 [facility] Stop: 01/17/23 08:58 Last Admin: 12/23/22 08:55 Dose: 1 each Miscellaneous Information (Pharmacy Glycemic Mgmt Consult) 1 each N/A UD PRN; Protocol PRN Reason: Consult Stop: 01/20/23 09:49 Multi-Ingredient Cream (Eucerin Cr 120 Gm Jar) 1 appln EXT BID PRN PRN Reason: DRY SKIN Stop: 01/17/23 11:16 Nicotine (Nicotine 21 Mg/24 Hr Tdsy) 21 mg TD QAM [facility] Stop: 01/17/23 08:59 Last Admin: 12/23/22 08:52 Dose: 21 mg Nitroglycerin (Nitroglycerin Sl 0.4 Mg/Tab Tab) 0.4 mg SL UD PRN PRN Reason: Chest Pain Stop: 01/16/23 21:41 Nystatin (Nystatin Powder 15gm Btl) 1 appln EXT TID PRN PRN Reason: Skin Irritation Stop: 01/16/23 21:41 Ondansetron HCl (Ondansetron Inj 2 Mg/Ml 2 Ml Vial) 4 mg IV Q6H PRN PRN Reason: Nausea Stop: 01/16/23 21:41 Last Admin: 12/18/22 10:30 Dose: 4 mg Pantoprazole Sodium (Pantoprazole 40 Mg Tab) 40 mg PO DAILYBB [facility] Stop: 01/17/23 06:29 Last Admin: 12/23/22 06:30 Dose: 40 mg Polyethylene Glycol (Polyethylene (Miralax) 17 Gm Pack) 17 gm PO DAILY PRN PRN Reason: Constipation Stop: 01/16/23 21:41 Polyethylene Glycol (Polyethylene (Miralax) 17 Gm Pack) 17 gm PO QAM [facility] Stop: 01/17/23 08:59 Last Admin: 12/23/22 08:53 Dose: 17 gm Potassium Chloride (Potassium Chloride Crtab 20 Meq Tabcr) 40 meq PO BID [facility] Stop: 01/17/23 08:59 Last Admin: 12/23/22 08:52 Dose: 40 meq Promethazine HCl (Promethazine Hcl 25 Mg Tab) 12.5 mg PO BID PRN PRN Reason: nausea and vomiting Stop: 01/16/23 21:41 Last Admin: 12/18/22 17:10 Dose: 12.5 mg Sennosides (Senna 8.6 Mg Tab) 8.6 mg PO DAILY PRN PRN Reason: Constipation Stop: 01/16/23 21:41 Spironolactone ([facility] 25 Mg Tab) [facility] [place]: 01/17/23 08:59 Last Admin: 12/23/22 08:50 Dose: 25 mg Tamsulosin HCl (Tamsulosin Hcl 0.4 Mg Cap) 0.8 [facility] [place]: 01/17/23 08:59 Last Admin: 12/23/22 08:51 Dose: 0.8 mg Vitamin D (Cholecalciferol 5,000 Units 125 Mcg Tab) 5,000 [facility] [place] 01/17/23 08:59 Last Admin: 12/23/22 08:51 Dose: 5,000 units Warfarin Sodium (Warfarin Sod 2.5 Mg Tab) 2.5 mg PO [id number]@1600 [facility] Stop: 01/16/23 21:41 Last Admin: 12/23/22 17:00 Dose: 2.5 mg Warfarin Sodium (Warfarin Sod 5 Mg Tab) 5 mg PO MoFr@1600 [facility] Stop: 01/17/23 15:59 Last Admin: 12/21/22 17:40 Dose: 5 mg (8) 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
[2022-12-23] MEDS ORDERED: LANTUS PER UNIT CHARGE SQ SCH (21:00)
[2022-12-24] MEDS: ACETAMINOPHEN 1,000 MG/100 ML VIAL IV PRN (02:36)
[2022-12-24] MEDS: PANTOprazole 40 MG TAB PO SCH (05:24)
[2022-12-24 07:22] LABS: INR 1.6 (0.9-1.1); Prothrombin Time 16.7 Seconds (9.0-12.0)
[2022-12-24] MEDS ORDERED: ACETAMINOPHEN 1,000 MG/100 ML VIAL IV STA (08:33)
[2022-12-24] MEDS: CYCLOBENZAPRINE HCL 10 MG TAB PO PRN (08:46)
[2022-12-24] MEDS: buprenorphine HCL 8 MG SUBL SL SCH (08:46)
[2022-12-24] MEDS: LORazepam 0.5 MG TAB PO PRN (08:46)
[2022-12-24] MEDS: GABAPENTIN 800 MG TAB PO SCH (08:47)
[2022-12-24] MEDS: DULoxetine HCL 60 MG CAP PO SCH (08:47)
[2022-12-24] MEDS: DOCUSATE SODIUM 100 MG CAP PO SCH (08:48)
[2022-12-24] MEDS: FOLIC ACID 1 MG TAB PO SCH (08:48)
[2022-12-24] MEDS: METOPROLOL SUCC 25MG EXT REL TAB PO SCH (08:48)
[2022-12-24] MEDS: ADVANCED PROBIOTIC 1250 MG CAPSULE PO SCH (08:48)
[2022-12-24] MEDS: CHOLECALCIFEROL 5,000 UNITS 125 MCG TAB PO SCH (08:48)
[2022-12-24] MEDS: TAMSULOSIN HCL 0.4 MG CAP PO SCH (08:48)
[2022-12-24] MEDS: guaiFENesin/DEXTROM SYRUP 100MG/10MG 5ML UDC PO PRN (08:48)
[2022-12-24] MEDS: FERROUS SULFATE 325 MG TAB PO SCH (08:48)
[2022-12-24] MEDS: MAGNESIUM OXIDE 400 MG TAB PO SCH (08:48)
[2022-12-24] MEDS: ASPIRIN 81 MG ECTAB PO SCH (08:49)
[2022-12-24] MEDS: SPIRONOLACTONE 25 MG TAB PO SCH (08:49)
[2022-12-24] MEDS: DOXYCYCLINE HYCLATE 100 MG CAP PO SCH (08:49)
[2022-12-24] MEDS: FINASTERIDE 5 MG TAB PO SCH (08:49)
[2022-12-24] MEDS: FAMOTIDINE 20 MG TAB PO SCH (08:49)
[2022-12-24] MEDS: ISOSORBIDE DINITRATE 10 MG TAB PO SCH (08:49)
[2022-12-24] MEDS: POTASSIUM CHLORIDE CRTAB 20 MEQ TABCR PO SCH (08:49)
[2022-12-24] MEDS: FLUTICASONE PROPIONATE NA SPR 16 GM BTL SCH (08:50)
[2022-12-24] MEDS: POLYETHYLENE (MIRALAX) 17 GM PACK PO SCH (08:50)
[2022-12-24] MEDS: DICLOFENAC SOD 1% GEL 100 GM TUBE EXT SCH (08:50)
[2022-12-24] MEDS: methylPREDNISolone 40 MG in SYRINGE 0 ML IV SCH (08:51)
[2022-12-24] MEDS: NICOTINE 21 MG/24 HR TDSY TD SCH (08:51)
[2022-12-24] MEDS ORDERED: LANTUS PER UNIT CHARGE SQ SCH (09:00)
[2022-12-24] MEDS: INSULIN ASPART PER UNIT CHARGE SC SCH (09:00)
[2022-12-24] MEDS: FUROSEMIDE 40 MG/4 ML VIAL IV SCH (09:07)
--- NOTE | 2022-12-24 13:56 | Discharge Summary ---
Date of Service December 24, 2022 Admission HPI Per Admitting Provider This is a 52-year-old male with past medical history significant for type 2 diabetes, peripheral neuropathy, diabetic retinopathy, COPD, obstructive sleep apnea and COPD overlap syndrome, on oxygen during nighttime and sometimes using on daytime as per the , allergic rhinitis, chronic diastolic CHF, venous insufficiency, history of supraventricular tachycardia, history of CAD, morbid obesity, GERD, chronic pain syndrome, on chronic pain medications, chronic bilateral back pain without sciatica, history of iron-deficiency anemia due to chronic blood losses, depression with anxiety, ongoing tobacco abuse, history of pulmonary embolism, history of drug overdose, personality disorder, history of subdural hematoma, subarachnoid hemorrhage, opiate dependence, history of low testosterone, who presents with confusion. The patient is alert and oriented, but somewhat slow to answer. I talked to the on the phone. As per the since last 1 week, he was still falling frequently at home every day 2-3 times and has a bruise on his left forearm.He walks with cane and feels imbalance and he falls down. Sometimes he loses consciousness for a few seconds, seems to be having some shaking episodes during that episode but no biting of the tongue and no incontinence. He has a Fontaine bag. When he falls down, is very difficult to get up. It takes a long time to get him up. He seems to be confused for a few seconds to a few minutes and is back to normal. This is an ongoing issue. Today when he woke up from sleep at 2:00p.m., he seemed a little confused, he did not know where he was. He does not take his medications and does not eat his food today and that is the reason brought him to the ER. Currently, alert and oriented, knows that he is in the hospital, able to answer questions but somewhat slow. He has chronic cough. Denies any fevers. He said he had chest pain earlier, that is resolved currently. He has some blurred visions. No headache. No earaches. Has some abdominal discomfort. Normal bowel movements. He has chronic swelling in the legs. Hemodynamically stable, he is saturating okay on 4 liters. His white count was 17. His INR is 2.9, creatinine 0.8. Lactate 1.8. Ammonia 12. LFTs okay. Troponin 8.8. Urinalysis, +1 leukocyte esterase, bacteria negative. COVID, influenza and RSV negative. CT of the head is okay. Admission Exam Per Admitting Provider GENERAL: The patient is alert and awake, seems oriented, not in acute distress. HEENT: No pallor, no icterus. Pupils equal. Extraocular muscles intact. Oral mucosa somewhat dry. NECK: No JVD. No neck masses. CARDIOVASCULAR: S1 and S2 heard. Regular rate and rhythm. No murmur, no gallop. RESPIRATORY SYSTEM: Normal AP diameter. No accessory muscle use. Occasional wheezing, no crackles. ABDOMEN: Soft, bowel sounds present, nontender, no distention. CENTRAL NERVOUS SYSTEM: Alert and awake. Speech is clear. No facial droop. Obeys simple commands. Insight is okay but slow to answer. Moves extremities. No pronator drift. Coordination of movements normal. Sensation is intact. EXTREMITIES: Lower extremity edema present. Chronic skin changes seen. Principal Diagnosis Acute metabolic encephalopathy likely multifactorial, probably polypharmacy contributing. COPD exacerbaton/bronchitis. Chronic diastolic CHF. H/o PE on coumadin. Morbid obesity. Discharge Exam General: Morbidly obese, Sitting comfortably in bed, not in distress, on NC Chest: Bilateral wheezes and rhonchi CVS: Regular rate and rhythm, normal heart sounds, no murmur Abdomen: Soft, non tender, not distended, normal bowel sounds Neuro: Awake, alert, oriented, conversing well, non focal Extremities: No cyanosis, clubbing, chronic edema improved Fontaine with clear urine Discharge Data Allergies Allergy/AdvReac Type Severity Reaction Status Date / Time cefepime Allergy Intermediate rash Verified 12/17/22 18:20 daptomycin Allergy Intermediate rash Verified 12/17/22 18:20 fentanyl Allergy Intermediate RASH/HIVES/SKIN Verified 12/17/22 18:20 REDNESS naloxone AdvReac Severe extremely Verified 12/17/22 18:20 sick acetaminophen [From Tylenol] AdvReac Intermediate IRRITATES Verified 12/17/22 18:20 & UPSET STOMACH ibuprofen AdvReac Intermediate Nausea Verified 12/17/22 18:20 valproic acid AdvReac Intermediate PANCREATITS Verified 12/17/22 18:20 Consultations 12/17/22 18:56 ED Decision to Admit Stat 12/18/22 08:00 Consult Cardiology Routine Consult Neurology Routine 12/21/22 15:17 Consult Urology Routine Ordered Studies 12/17/22 16:35 CT head/brain wo con Stat 12/21/22 20:36 US Renal Bladder [US renal/blad retro comp] Routine Laboratory Results WBC 17.07 K/ul (4.8-10.8) H 12/23/22 06:08 RBC 4.94 M/uL (4.70-6.10) 12/23/22 06:08 Hgb 13.7 g/dl (14.0-18.0) L 12/23/22 06:08 Hct 42.9 % (42.0-52.0) 12/23/22 06:08 MCV 86.8 fL (80.0-100.0) 12/23/22 06:08 MCH 27.7 pg (25.0-34.0) 12/23/22 06:08 MCHC 31.9 g/dL (32.0-36.0) L 12/23/22 06:08 RDW Std Deviation 56.1 fL (36.4-46.3) H 12/23/22 06:08 RDW Coeff of Megan 17.9 % (11.5-14.5) H 12/23/22 06:08 Plt Count 225 K/uL (130-400) 12/23/22 06:08 MPV 10.4 fL (9.4-12.4) 12/23/22 06:08 Immature Gran % (Auto) 0.6 % 12/23/22 06:08 Neut % (Auto) 61.5 % 12/23/22 06:08 Lymph % (Auto) 31.3 % 12/23/22 06:08 Simpson % (Auto) 5.7 % 12/23/22 06:08 Eos % (Auto) 0.4 % 12/23/22 06:08 Baso % (Auto) 0.5 % 12/23/22 06:08 Neut # (Auto) 10.51 K/uL (1.40-6.50) H 12/23/22 06:08 Lymph # (Auto) 5.34 K/uL (1.2-3.4) H 12/23/22 06:08 Simpson # (Auto) 0.97 K/uL (0.11-0.59) H 12/23/22 06:08 Eos # (Auto) 0.07 K/uL (0-0.50) 12/23/22 06:08 Baso # (Auto) 0.08 K/uL (0-0.2) 12/23/22 06:08 Immature Gran # (Auto) 0.10 K/uL (0.01-0.20) 12/23/22 06:08 Platelet Estimate Normal (Normal) 12/18/22 05:34 RBC Morphology Unremarkable 12/18/22 05:34 PT 16.7 Seconds (9.0-12.0) H 12/24/22 05:59 INR 1.6 (0.9-1.1) H 12/24/22 05:59 VBG pH 7.40 (7.36-7.41) 12/17/22 23:51 VBG pCO2 63 mmHg (38-50) H 12/17/22 23:51 VBG pO2 30 mmHg 12/17/22 23:51 VBG HCO3 39 mmol/L 12/17/22 23:51 VBG O2 Saturation < 60.0 % 12/17/22 23:51 VBG Base Excess 11.5 mEq/L 12/17/22 23:51 Sodium 138 mmol/L (136-145) 12/23/22 06:08 Potassium 4.0 mmol/L (3.5-5.1) 12/23/22 06:08 Chloride 100 mmol/L (98-107) 12/23/22 06:08 Carbon Dioxide 36 mmol/L (21-32) H 12/23/22 06:08 Anion Gap 2 (3-11) L 12/23/22 06:08 BUN 28 mg/dl (6-23) H 12/23/22 06:08 Creatinine 1.18 mg/dl (0.6-1.4) 12/23/22 06:08 Est Cr Clr Drug Dosing 133.4 ml/min 12/23/22 06:08 Est GFR ( Amer) 81.7 ml/min 12/23/22 06:08 Est GFR (Non-Af Amer) 70.5 ml/min 12/23/22 06:08 BUN/Creatinine Ratio 23.7 (10-20) H 12/23/22 06:08 Glucose 217 mg/dl (70-99(Fasting)) H 12/23/22 06:08 POC Glucose 206 mg/dl (70-99) H 12/24/22 08:07 Estimat Average Glucose 183 mg/dl 12/18/22 05:34 Hemoglobin A1c 8.0 % (4.5-5.6) H 12/18/22 05:34 Lactate 1.8 mmol/L (0.4-2.0) 12/17/22 17:06 Calcium 10.0 mg/dl (8.6-10.3) 12/23/22 06:08 Magnesium 2.2 mg/dl (1.7-2.4) 12/24/22 05:59 Total Bilirubin 0.7 mg/dl (0.2-1.0) 12/19/22 06:12 AST 11 U/L (13-39) L 12/19/22 06:12 ALT 12 U/L (7-52) 12/19/22 06:12 Alkaline Phosphatase 93 U/L (34-104) 12/19/22 06:12 Ammonia 12.0 umol/L (18-72) L 12/17/22 18:20 Troponin I High Sens 5.9 pg/ml (0-20) D 12/18/22 11:33 Total Protein 6.7 gm/dl (6.0-8.3) 12/19/22 06:12 Albumin 3.5 gm/dl (3.4-5.0) 12/19/22 06:12 Globulin 3.2 gm/dl (2.5-4.0) 12/19/22 06:12 Albumin/Globulin Ratio 1.1 (0.9-2) 12/19/22 06:12 Lipase 16 U/L (11-82) 12/17/22 18:20 Urine Color Yellow 12/17/22 Unknown Urine Appearance Clear (Clear) 12/17/22 Unknown Urine pH 8.0 (4.5-7.5) H 12/17/22 Unknown Ur Specific Bryson 1.007 (1.000-1.030) 12/17/22 Unknown Urine Protein Negative (Negative) 12/17/22 Unknown Urine Glucose (UA) Negative (Negative) 12/17/22 Unknown Urine Ketones Negative (Negative) 12/17/22 Unknown Urine Blood 1+ (Negative) H 12/17/22 Unknown Urine Nitrite Negative (Negative) 12/17/22 Unknown Urine Bilirubin Negative (Negative) 12/17/22 Unknown Urine Urobilinogen Negative (Negative) 12/17/22 Unknown Ur Leukocyte Esterase 1+ (Negative) H 12/17/22 Unknown Urine WBC (Auto) 10-30 /hpf (0-5) H 12/17/22 Unknown Urine RBC (Auto) 5-10 /hpf (0-4) H 12/17/22 Unknown U Hyaline Cast (Auto) 0 /lpf (0-5) 12/17/22 Unknown U Epithel Cells (Auto) 10-20 /lpf (0-5) H 12/17/22 Unknown Urine Bacteria (Auto) Negative (Negative) 12/17/22 Unknown Urine Opiates Screen Neg (Neg) 12/17/22 Unknown Ur Methadone, Qual Neg (Neg) 12/17/22 Unknown Urine Barbiturates Neg (Neg) 12/17/22 Unknown Ur Phencyclidine (PCP) Neg (Neg) 12/17/22 Unknown U Amphetamin/Meth Scrn Neg (Neg) 12/17/22 Unknown MDMA (Ecstasy) Screen Neg (Neg) 12/17/22 Unknown U Benzodiazepines Scrn Neg (Neg) 12/17/22 Unknown Ur Cocaine Metabolite Neg (Neg) 12/17/22 Unknown U Marijuana (THC) Screen Neg (Neg) 12/17/22 Unknown SARS-CoV-2 (PCR) NEGATIVE (Negative) 12/17/22 17:05 Influenza Type A (PCR) Negative (Neg) 12/17/22 17:05 Influenza Type B (PCR) Negative (Neg) 12/17/22 17:05 RSV (RT-PCR) Negative (Neg) 12/17/22 17:[address] 12/17/22 16:[address] DOSE: 1136.68 mGy.cm HISTORY: Altered mental status. TECHNIQUE: Multiaxial CT images of the head were performed without the use of intravenous contrast. Automated exposure control was utilized for this study. A dose lowering technique was utilized adhering to the principles of ALARA. Comparison: Head CT 11/18/2022. Findings: Near complete opacification the right maxillary sinus, unchanged. Mild mucosal thickening within the remaining paranasal sinuses which has significantly improved in the interval. The right mastoid air cells are clear. There is a small left mastoid effusion, unchanged. The calvarium and skull base are intact. The ventricles and sulci are within normal limits. There is no mass, hematoma, midline shift, or acute infarct. Impression: No acute intracranial abnormality. Interval improvement in the paranasal sinus disease. ACT 112: Negative or not required by law. Electronically signed by: Vidal Keller M.D. 12/17/2022 6:37 PM Chest X-Ray 12/17/22 16:36 XR chest 1V portable HISTORY: Altered mental status. COMPARISON: Chest 11/23/2022. FINDINGS: There are low lung volumes. The heart is normal in size. No pneumothorax. No evidence for pulmonary edema. Stable blunting of the costophrenic sulci, left greater than right. This may be technical. No new focal lung consolidations identified. IMPRESSION: No significant change compared to the prior study. No acute process. ACT 112: Negative or not required by law. Electronically signed by: Vidal Keller M.D. 12/17/2022 6:31 PM Renal Ultrasound 12/21/22 20:36 RENAL ULTRASOUND CLINICAL HISTORY: Urinary retention. COMPARISON STUDY: CT of the abdomen and pelvis October 26, 2022. TECHNIQUE: Sonography of the kidneys and the urinary bladder was performed. FINDINGS: Increased hepatic echogenicity is incidentally noted. There is no hydronephrosis. The right kidney measures 11.3 cm and the left measures 13.5 cm. There is a 3 mm right renal calculus. No renal mass is identified by sonography. Left kidney is partially obscured due to suboptimal penetration. Bladder is collapsed and likely contains a Fontaine. IMPRESSION: 1. No hydronephrosis. 2. 3 mm nonobstructing right renal calculus. ACT 112: Negative or not required by law. Electronically signed by: Evelio Corbin M.D. 12/22/2022 8:25 AM Hospital Course (1) AMS (altered mental status): Cleared. Now back to baseline. His metabolic encephalopathy is likely multifactorial- likely contributed by polypharmacy, infection, hypoxia on background of COPD, CHF and morbid obesity (2) Acute UTI (urinary tract infection): Has indwelling Fontaine catheter. Urine clx negative and IV antibiotic has been discontinued. (3) Chronic indwelling Fontaine catheter: Continue fontaine at discharge- change at least every month to prevent further UTIs Seen by uro- OP follow up for further management Ultrasound of the kidneys did not show any significant disease but he did showed 3 mm nonobstructive stone in right kidney (4) Syncope and collapse: Has been falling at home with questionable loss of consciousness for a few seconds as per the patient and significant other No arrhythmias on the monitor Appreciate cardiology input and recommendation EEG has been negative for any seizure activity Seen by PT/OT-recommended home No episodes of syncope and/or collapse while in the hospital (5) COPD exacerbation: s/p iv solumderol and improved. Continue prednisone taper and doxycycline. Continue home oxygen. Started on codeine cough syrup which he had last time and helped him (PDMP reviewed). Follow up with PCP (6) History of pulmonary embolism: continue coumadin- follow up with PCP for further dosing adjustment. 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 PT OT evaluated. continue pain meds. Other significant medical condition remained stable Total Time Total Time Spent Total Time Spent (In Minutes): 50 Discharge Plan Discharge Items Patient Disposition: Home - Self-Care Reason For Visit: CONFUSION Discharge Diagnosis: COPD exacerbation, acute metabolic encephalopathy, chronic diastolic CHF, morbid obesity Activity: Resume your previous activity Non-emergency contact: Primary Care Provider and Urologist Call non-emergency contact if: you have any medication questions, your symptoms worsen and your pain is not controlled Follow-up/Referrals: Tosin Ryder CRNP [Nurse Practitioner] - (The urology office will call you with a follow up appointment.) Roberto Askew MD [Primary Care Provider] - 12/31/22 11:20 am (Date & Time 12/31/2022 11:20 AM Provider Roberto Askew MD Department General Internal Medicine [facility] ) Diet: Carb Consistent or DM2 and Low Sodium (2gm) Fluids: 1500ml (6 cups) Addtl Attending Provider Instructions: Continue medications as prescribed Follow up with your PCP and urologist Pending Studies at Discharge: No Stand-Alone Forms: My Mobile[employer], Smoking Cessation Medications and DC Order Prescriptions: New doxycycline hyclate 100 mg Capsule 100 mg PO BID 5 Days Qty: 10 0RF prednisone 10 mg tablet 10 mg PO DIRECTED Qty: 28 0RF Rx Instructions: 4 tabs daily for 4 days, 2 tabs daily for 4 days, 1 tab daily for 4 days and then stop codeine-guaifenesin 10-100 mg/5 mL liquid 5 ml PO TID PRN (Reason: cough) Qty: 120 0RF Continued promethazine 12.5 mg tablet 12.5 mg PO BID PRN (Reason: nausea and vomiting) Qty: 10 0RF tamsulosin [Flomax] 0.4 mg capsule 0.8 mg PO QAM Qty: 180 3RF polyethylene glycol 3350 [Miralax] 17 gram powder in packet 17 g PO QAM nitroglycerin [Nitrostat] 0.4 mg tablet, sublingual 0.4 mg Sublingual DIRECTED PRN (Reason: CHEST PAIN) Rx Instructions: PLACE ONE TABLET UNDER THE TONGUE EVERY 5 MINUTES FOR UP TO 3 DOSES OVER 15 MINUTES IF NEEDED FOR CHEST PAIN nystatin 100,000 unit/gram Powder 1 applic TOPICAL TID PRN (Reason: Skin Irritation) Rx Instructions: APPLY DIRECTED TO ABDOMINAL FOLDS cyclobenzaprine 10 mg Tablet 10 mg PO BID PRN (Reason: Muscle Spasm) ipratropium-albuterol 0.5 mg-3 mg(2.5 mg base)/3 mL Solution For Nebulization 3 ml INHALATION Q6H PRN (Reason: Shortness Of Breath Or Wheezing) docusate sodium 100 mg Capsule 100 mg PO BID duloxetine 60 mg capsule,delayed release(DR/EC) 60 mg PO DAILY famotidine 20 mg tablet 20 mg PO DAILY fluticasone propionate 50 mcg/actuation spray,suspension 2 spray Intranasal DAILY aspirin [Ecotrin Low Strength] 81 mg tablet,delayed release (DR/EC) 81 mg PO QAM finasteride 5 mg tablet 5 mg PO QAM metoprolol succinate 50 mg Tablet Extended Release 24 Hr 75 mg PO BID spironolactone 25 mg Tablet 25 mg PO QAM atorvastatin 80 mg tablet 80 mg PO QPM Rx Instructions: TAKE THIS MEDICATION EVERY AFTERNOON sennosides [senna] 8.6 mg Tablet 8.6 mg PO DAILY PRN (Reason: Constipation) folic acid 1 mg Tablet 1 mg PO QAM furosemide [Lasix] 40 mg tablet 40 mg PO BID albuterol sulfate 90 mcg/actuation Hfa Aerosol Inhaler 2 puff INHALATION Q4 PRN (Reason: Dyspnea) omeprazole 20 mg Capsule,Delayed Release(Dr/Ec) 20 mg PO DAILYBB gabapentin 800 mg tablet 800 mg PO TID buprenorphine HCl 8 mg tablet, sublingual 8 mg SUBLINGUAL TID Rx Instructions: Per Dr 1st glipizide 10 mg tablet 10 mg PO BID urea [Ureacin-20] 20 % Cream 1 applic TOPICAL BID magnesium oxide 400 mg (241.3 mg magnesium) tablet 400 mg PO DAILY ferrous sulfate 325 mg (65 mg iron) Tablet 325 mg PO QAM Rx Instructions: Take with breakfast hydroxyzine HCl 25 mg Tablet 25 mg PO QID PRN (Reason: Anxiety) ondansetron HCl 4 mg Tablet 4 mg PO Q8H PRN (Reason: NAUSEA/VOMITING) benzonatate 100 mg Capsule 100 mg PO TID PRN (Reason: cough) Qty: 10 0RF diclofenac sodium [Voltaren Arthritis Pain] 1 % Gel 2 g EXT BID Qty: 50 0RF dextromethorphan-guaifenesin 10-100 mg/5 mL Syrup 5 ml PO Q6H PRN (Reason: cough) Qty: 500 0RF potassium chloride 20 mEq tablet extended release 40 meq PO BID Qty: 60 0RF warfarin 5 mg tablet 2.5 mg PO [id number] Rx Instructions: TAKES SUN, ES, WED, , & SAT EVENINGS. cholecalciferol (vitamin D3) 125 mcg (5,000 unit) Tablet 5,000 unit PO QAM Qty: 30 0RF Lactinex 1 million cell tablet,chewable 1 tab PO TID Qty: 30 0RF isosorbide dinitrate 30 mg tablet 30 mg PO DAILY warfarin 5 mg tablet 5 mg PO 2XWK Rx Instructions: TAKES MON & FRI EVENINGS guaifenesin [Mucinex] 600 mg Tablet Extended Release 12hr 1,200 mg PO BID lorazepam 0.5 mg tablet 0.5 mg PO Q8 PRN (Reason: Anxiety) Qty: 6 0RF insulin glargine [Lantus Solostar U-100 Insulin] 100 unit/mL (3 mL) Insulin Pen 50 unit SC HS 30 Days Qty: 15 0RF Discontinued insulin aspart U-100 [Novolog FlexPen U-100 Insulin] 100 unit/mL (3 mL) Insulin Pen 1 unit SUBCUT TIDM Qty: 30 0RF Rx Instructions: inject 1 unit uner the skin three times a day with meals. units as per sliding scale as instructed by provider to cover for steroid coverage when warranted Discharge Orders: Discharge Order (Routine); Ordered 12/24/22 Ordered By: Billy Pickering/Other Patient Handouts: Managing Type 2 Diabetes Admission Data Admit Date/Time: 12/17/22 20:24 Attending Provider: Billy Mills Admit Provider: Everardo Ibarra Primary Care Provider: Roberto Askew Other Providers: Everardo Ibarra ; Rocío Mccarthy ; Yvon Del Valle ; Dick Cardoza ; Miguel Angel Lee ; Jacob Penn ; Manuel English ; Owen Saavedra ; Berna Richardson ; Josefina Chavez ; Rocío Ngo ; Popeye Fall ; Mukul Beard ; Siva Dunham ; Brayan Cisneros ; Aarti Chapman ; Angelica Hutton ; Josefina Ellison ; Lit Sahu ; Josefina Friend ; Johnny Flores ; Leonardo Schwartz ; Maribell Allison ; Loyda Spring ; Lit Rosa ; Yvon Azul ; Franklin Oakley Other Interventions: Discharge Summary Assessment (RN) Last Done: 12/24/22 09:36
== END 2022-12-24 10:00 | disposition home or self-care (01) ==
LOC: ED 16:07 → INTOOBSV 20:24 → 4W 20:24 → SUATTDRO 20:24 → 4W 21:37

== ENCOUNTER 2023-01-13 12:20 | Inpatient (IN) ==
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
[2023-01-13 13:11] LABS: Basophils # (auto) 0.07 K/uL (0-0.2); Basophils % (auto) 0.5 %; Eosinophils # (auto) 0.47 K/uL (0-0.50); Eosinophils % (auto) 3.6 %; Hematocrit (blood only) 40.4 % (42.0-52.0); Hemoglobin 13.2 g/dl (14.0-18.0); Immature Granulocytes # (auto) 0.13 K/uL (0.01-0.20); Lymphocytes % (auto) 19.9 %; Mean Corpuscular Hemoglobin 27.7 pg (25.0-34.0); Mean Corpuscular Hgb Conc 32.7 g/dL (32.0-36.0); Mean Corpuscular Volume 84.9 fL (80.0-100.0); Mean Platelet Volume 10.4 fL (9.4-12.4); Monocytes # (auto) 1.13 K/uL (0.11-0.59); Monocytes % (auto) 8.7 %; Neutrophils # (auto) 8.64 K/uL (1.40-6.50); Neutrophils % (auto) 66.3 %; Platelet Count 232 K/uL (130-400); RDW Coefficient of Variation 17.3 % (11.5-14.5); RDW Standard Deviation 53.8 fL (36.4-46.3); Red Blood Count 4.76 M/uL (4.70-6.10); White Blood Count 13.04 K/ul (4.8-10.8)
--- NOTE | 2023-01-13 13:18 | XRay Report ---
XR chest 1V portable CLINICAL HISTORY: shortness of breath COMPARISON STUDY: Chest radiograph December 17, 2022. FINDINGS: No pneumothorax or pleural effusion is present. Cardiomegaly is unchanged. Interstitial pro minence is unchanged. There is no consolidation to suggest pneumonia. There has been no significant c hange in appearance of the chest. IMPRESSION: No acute cardiopulmonary findings. No change in appearance of the chest. ACT 112: Negative or not required by law. Electronically signed by: Evelio Corbin M.D. 01/13/2023 1:16 PM
[2023-01-13 13:27] LABS: Albumin Level 3.6 gm/dl (3.4-5.0); BUN Creatinine Ratio 10.8 (10-20); Bilirubin Direct 0.2 mg/dl (0-0.2); Calcium 9.2 mg/dl (8.6-10.3); Creatinine Clr Calc Pharmacy 159.8 ml/min; Est GFR (African American) 97.5 ml/min; Est GFR (Non-African American) 84.1 ml/min; Magnesium 1.5 mg/dl (1.7-2.4); Potassium 3.8 mmol/L (3.5-5.1); Total Protein 6.9 gm/dl (6.0-8.3)
[2023-01-13 13:31] LABS: Troponin I High Sensitivity 5.4 pg/ml (0-20)
[2023-01-13] MEDS ORDERED: FUROSEMIDE 40 MG/4 ML VIAL IV ONE (13:45)
[2023-01-13 13:56] LABS: Appearance Urine Clear (Clear); Bilirubin Urine Negative (Negative); Blood Urine 2+ (Negative); Color Urine Yellow; Glucose Urine UA Negative (Negative); Ketones Urine Negative (Negative); Leukocyte Esterase Urine 2+ (Negative); Nitrite Urine Negative (Negative); Protein Urine Negative (Negative); Specific Gravity Urine 1.012 (1.000-1.030); Urobilinogen Urine Negative (Negative); pH Urine 5.5 (4.5-7.5)
[2023-01-13 14:11] LABS: Bacteria Urine Automated 1+ (Negative); Mucus Urine Present (None Prsent)
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
[2023-01-13] MEDS ORDERED: ONDANSETRON INJ 2 MG/ML 2 ML VIAL IV PRN (14:42)
[2023-01-13] MEDS ORDERED: ALUMINUM/MAGNESIUM SUSP 30 ML UDC PO PRN (14:42)
[2023-01-13] MEDS ORDERED: ACETAMINOPHEN 325 MG TAB PO PRN (14:42)
[2023-01-13] MEDS ORDERED: MAGNESIUM HYDROXIDE SUSP 30 ML UDC PO PRN (14:42)
[2023-01-13] MEDS ORDERED: POLYETHYLENE (MIRALAX) 17 GM PACK PO PRN (14:42)
[2023-01-13 14:58] LABS: Influenza A virus by PCR Negative (Neg); Influenza B virus by PCR Negative (Neg); RSV by PCR Negative (Neg); SARS CoV2 RNA(COVID-19) Ceph NEGATIVE (Negative)
[2023-01-13 15:02] LABS: INR 3.6 (0.9-1.1); Prothrombin Time 36.5 Seconds (9.0-12.0)
[2023-01-13] MEDS ORDERED: PIPERACILLIN/TAZOBACTAM 4.5 GM (over 30 mins) IV ONE (15:15)
[2023-01-13] MEDS ORDERED: DEXTROMETHORPHAN POLYMR COMPLX 60 MG/10 ML UDP PO PRN (15:57)
[2023-01-13] MEDS ORDERED: DEXTROSE 50% 50 ML SYRINGE IV PRN (16:00)
[2023-01-13] MEDS ORDERED: CARBOHYDRATES FOR HYPOGLYCEMIA PO PRN (16:00)
[2023-01-13] MEDS ORDERED: GLUCOSE 10 TAB/TUBE PO PRN (16:00)
[2023-01-13] MEDS: MAGNESIUM SULFATE / D5W 1 GM/100 ML BAG IV SCH ×2 (16:00→17:07)
[2023-01-13] MEDS ORDERED: PHARMACY GLYCEMIC MGMT CONSULT PRN (16:00)
[2023-01-13] MEDS ORDERED: GLUCAGON FOR INJ 1 MG VIAL SQ PRN (16:00)
[2023-01-13] MEDS ORDERED: GLUCOSE 40% GEL 15 GM TUBE PO PRN (16:00)
[2023-01-13] MEDS ORDERED: hydrOXYzine HCl 25 MG TAB PO PRN (16:07)
--- NOTE | 2023-01-13 16:55 | Electrocardiogram Report ---
Test Reason : Blood Pressure : / mmHG Vent. Rate : 096 BPM Atrial Rate : 096 BPM P-R Int : 154 ms QRS Dur : 106 ms QT Int : 344 ms P-R-T Axes : 045 059 113 degrees QTc Int : 434 ms Normal sinus rhythm Nonspecific ST and T wave abnormality Abnormal ECG When compared with ECG of 19-DEC-2022 06:50, T wave inversion now evident in Lateral leads Confirmed by Stanton Porter [id number]) on 01/13/2023 4:54:52 PM Referred By: Confirmed By:Stanton Porter
[2023-01-13] MEDS: ALBUT/IPRATROP 3MG/0.5MG NEB 3 ML VIAL NEB PRN (17:07)
[2023-01-13] MEDS: NICOTINE 21 MG/24 HR TDSY TD SCH (20:15)
[2023-01-13] MEDS: predniSONE 20 MG TAB PO SCH (20:16)
[2023-01-13] MEDS: PIPERACILLIN/TAZOBACTAM 4.5 GM in DEXTROSE 5% 100 ML IV SCH (20:17)
[2023-01-13] MEDS: FUROSEMIDE 40 MG/4 ML VIAL IV SCH (20:17)
[2023-01-13] MEDS: DICLOFENAC SOD 1% GEL 100 GM TUBE EXT SCH (20:18)
[2023-01-13] MEDS: ATORVASTATIN 40 MG TAB PO SCH (20:18)
[2023-01-13] MEDS: GABAPENTIN 800 MG TAB PO SCH (20:19)
[2023-01-13] MEDS: DOCUSATE SODIUM 100 MG CAP PO SCH (20:19)
[2023-01-13] MEDS: POTASSIUM CHLORIDE CRTAB 20 MEQ TABCR PO SCH (20:20)
[2023-01-13] MEDS: METOPROLOL SUCC 25MG EXT REL TAB PO SCH (20:20)
[2023-01-13] MEDS: LACTOBACILLUS ACIDOPHILUS 1 GM PACK PO SCH (20:21)
[2023-01-13] MEDS: INSULIN ASPART PER UNIT CHARGE SC SCH ×2 (20:36→20:54)
[2023-01-13] MEDS: LANTUS PER UNIT CHARGE SQ SCH (20:36)
[2023-01-13] MEDS: buprenorphine HCL 8 MG SUBL SL SCH (20:37)
[2023-01-13] MEDS: CYCLOBENZAPRINE HCL 10 MG TAB PO PRN (20:37)
[2023-01-13] MEDS ORDERED: LORazepam 0.5 MG TAB PO STA (21:31)
[2023-01-13] MEDS ORDERED: guaiFENesin 600 MG TABCR PO PRN (23:18)
[2023-01-14] MEDS: INSULIN ASPART PER UNIT CHARGE SC SCH ×6 (00:05→21:18)
[2023-01-14] MEDS ORDERED: ACETAMINOPHEN 1,000 MG/100 ML VIAL IV STA (00:10)
[2023-01-14] MEDS: ALBUT/IPRATROP 3MG/0.5MG NEB 3 ML VIAL NEB PRN ×2 (00:49→10:39)
[2023-01-14] MEDS: PANTOprazole 40 MG TAB PO SCH (05:08)
[2023-01-14] MEDS: PIPERACILLIN/TAZOBACTAM 4.5 GM in DEXTROSE 5% 100 ML IV SCH ×3 (05:08→21:03)
[2023-01-14] MEDS: LANTUS PER UNIT CHARGE SQ SCH ×2 (08:14→21:17)
[2023-01-14] MEDS: buprenorphine HCL 8 MG SUBL SL SCH ×3 (08:15→21:04)
[2023-01-14] MEDS: CYCLOBENZAPRINE HCL 10 MG TAB PO PRN ×2 (08:15→21:31)
[2023-01-14] MEDS: FINASTERIDE 5 MG TAB PO SCH (08:16)
[2023-01-14] MEDS: predniSONE 20 MG TAB PO SCH (08:16)
[2023-01-14] MEDS: ASPIRIN 81 MG ECTAB PO SCH (08:16)
[2023-01-14] MEDS: FERROUS SULFATE 325 MG TAB PO SCH (08:17)
[2023-01-14] MEDS: SPIRONOLACTONE 25 MG TAB PO SCH (08:17)
[2023-01-14] MEDS: FAMOTIDINE 20 MG TAB PO SCH (08:17)
[2023-01-14] MEDS: ISOSORBIDE MONO EXTENDED REL 30 MG TABCR PO SCH (08:17)
[2023-01-14] MEDS: DULoxetine HCL 60 MG CAP PO SCH (08:17)
[2023-01-14] MEDS: MAGNESIUM OXIDE 400 MG TAB PO SCH (08:18)
[2023-01-14] MEDS: TAMSULOSIN HCL 0.4 MG CAP PO SCH (08:18)
[2023-01-14] MEDS: FOLIC ACID 1 MG TAB PO SCH (08:18)
[2023-01-14] MEDS: CHOLECALCIFEROL 5,000 UNITS 125 MCG TAB PO SCH (08:18)
[2023-01-14] MEDS: METOPROLOL SUCC 25MG EXT REL TAB PO SCH ×2 (08:19→21:15)
[2023-01-14] MEDS: GABAPENTIN 800 MG TAB PO SCH ×3 (08:19→21:16)
[2023-01-14] MEDS: FLUTICASONE PROPIONATE NA SPR 16 GM BTL SCH (08:20)
[2023-01-14] MEDS: FUROSEMIDE 40 MG/4 ML VIAL IV SCH ×2 (08:20→17:20)
[2023-01-14] MEDS: DOCUSATE SODIUM 100 MG CAP PO SCH ×2 (08:20→21:16)
[2023-01-14] MEDS: NICOTINE 21 MG/24 HR TDSY TD SCH (08:20)
[2023-01-14] MEDS: POTASSIUM CHLORIDE CRTAB 20 MEQ TABCR PO SCH ×2 (08:20→21:15)
[2023-01-14] MEDS: DICLOFENAC SOD 1% GEL 100 GM TUBE EXT SCH ×2 (08:21→21:20)
[2023-01-14 08:24] LABS: Hematocrit (blood only) 41.1 % (42.0-52.0); Hemoglobin 13.4 g/dl (14.0-18.0); Mean Corpuscular Hemoglobin 27.6 pg (25.0-34.0); Mean Corpuscular Hgb Conc 32.6 g/dL (32.0-36.0); Mean Corpuscular Volume 84.7 fL (80.0-100.0); Mean Platelet Volume 10.7 fL (9.4-12.4); Platelet Count 215 K/uL (130-400); RDW Coefficient of Variation 17.5 % (11.5-14.5); RDW Standard Deviation 53.5 fL (36.4-46.3); Red Blood Count 4.85 M/uL (4.70-6.10); White Blood Count 13.23 K/ul (4.8-10.8)
[2023-01-14 08:41] LABS: Albumin Globulin Ratio 1.1 (0.9-2); Albumin Level 3.6 gm/dl (3.4-5.0); BUN Creatinine Ratio 13.1 (10-20); Calcium 9.5 mg/dl (8.6-10.3); Est GFR (African American) 116.7 ml/min; Est GFR (Non-African American) 100.7 ml/min; Globulin 3.2 gm/dl (2.5-4.0); Magnesium 1.9 mg/dl (1.7-2.4); Potassium 4.3 mmol/L (3.5-5.1); Total Protein 6.8 gm/dl (6.0-8.3)
[2023-01-14 08:52] LABS: INR 2.5 (0.9-1.1); Prothrombin Time 26.3 Seconds (9.0-12.0)
--- NOTE | 2023-01-14 09:44 | Pharmacy Report ---
Pharmacy Glycemic Short Note 2 - Date of Service January 14, 2023 - Glycemic Short BSG Results (Last 24 hours): 01/13/23 01/13/23 01/13/23 12:43 16:30 19:23 Glucose 201 H POC Glucose 250 H 201 H 01/13/23 01/14/23 01/14/23 23:57 04:09 07:44 Glucose 206 H POC Glucose 269 H 235 H 01/14/23 07:44 Glucose POC Glucose 230 H OUTPATIENT ANTIDIABETIC REGIMEN: * Lantus 50 units HS, glipizide *Novolog - will need to clarify if still taking / listed on previous admissions ASSESSMENT: * 52 year old admitted with shortness of breath. Pharmacy consulted for glycemic management. * Patient known to glycemic service as previously admitted earlier this month. At that time had also been on prednisone 40 mg daily and daily insulin requirements were closer to ~175 units per day PLAN FOR INPATIENT GLYCEMIC CONTROL: * Hold outpatient oral diabetes medications * Basal insulin * Lantus 40 units Qam * Lantus 20-30 units HS * Bolus insulin * NovoLog per scale ACHS or Q6hrs while NPO * Goal Range: Low 110 mg/dL - High 140 mg/dL * Correction Factor: 10 mg/dL/unit * Nutritional / Prandial insulin per carb ratio of 1 unit per 4 grams CHO consumed
[2023-01-14] MEDS ORDERED: MICONAZOLE NITRATE POWDER 85 GM EXT PRN (09:46)
[2023-01-14] MEDS: LACTOBACILLUS ACIDOPHILUS 1 GM PACK PO SCH (09:48)
[2023-01-14] MEDS: ADVANCED PROBIOTIC 1250 MG CAPSULE PO SCH (10:51)
[2023-01-14 11:15] LABS: Estimated Average Glucose 189 mg/dl; Hemoglobin A1C 8.2 % (4.5-5.6)
[2023-01-14] MEDS: ACETAMINOPHEN 1,000 MG/100 ML VIAL IV SCH (14:11)
[2023-01-14] MEDS: methylPREDNISolone 40 MG in SYRINGE 0 ML IV SCH (14:47)
[2023-01-14] MEDS: WARFARIN SOD 2.5 MG TAB PO SCH (15:48)
[2023-01-14] MEDS: HYDROcodone/HOMATROPINE SYRUP 5MG/1.5MG 5ML UDP PO PRN ×2 (15:48→21:31)
--- NOTE | 2023-01-14 16:05 | Hospitalist Progress Note ---
Date of Service January 14, 2023 Assessment & Plan (1) Acute on chronic heart failure with preserved ejection fraction: (2) Hypoxia: (3) Hypomagnesemia: (4) 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: (5) Fluid overload: (6) BPH (benign prostatic hyperplasia): (7) Indwelling Fontaine catheter present: (8) Depression with anxiety: (9) COPD (chronic obstructive pulmonary disease): Plan 52 year old presents with HFpEF and COPD exacerbation with hypoxia. Patient supratherapeutic INR 3.6; will hold Coumadin and reassess, Diabetes with insulin dependence. Will diurese and add additional Prednisone and supportive treatment with nebs and Delsym. acute on chronic heart failure with preserved ejection fraction: Fluid overload: Hypoxia: Given 40 mg Lasix in ED; continue 40 mg IV BID Takes 40 mg PO daily at home; possible noncompliance Most recent Echo 12/10/22: EF 55-60%, Mild concentric LVH, RV dilation. Strict I/O 1800mL Continue Spirinolactone with KCL replacements as he takes at home CXR negative-mild congestive changes Daily weights Has been getting Lasix 40 mg IV twice daily Monitor intake output and PRP COPD: Likely has exacerbation Tobacco Use: Chronic cough with acute exacerbation Takes Prednisone 10 mg PO daily; will start Prednisone 40 mg PO daily Will give Hycodan PRN and Nebs PRN Smoking cessation encouraged Nicotine patch ordered Wears 3 LNC QHS but has been requiring 6 L/min now Will DC prednisone and give Solu-Medrol 40 mg twice daily for now Chronic Anticoagulation: Supratherapeutic: Takes Coumadin 2.5 on and , 5 mg all other days Compliant with Coumadin clinic Last night INR 3.1; did not take Coumadin In ED INR 3.6; will hold Coumadin tonight and recheck in AM We will continue Coumadin Hypomagnesia: Mg+ 1.5; replace with 2G Magnesium; trend Mg+ in AM Type 2 diabetes with insulin deficiency: Takes Lantus 100 Units QHS and Glipizide; hold Place on ACHS FSBS SSI Glycemic Pharmacy consultation BPH: Indwelling Fontaine catheter, chronic UA appears infected however has chronically dirty appearing urine Last admission: Urology consutlation and his urine culture at that time grew lactobacillus indwelling fontaine catheter in place ; Change out fontaine while here WBC 13.04; trend while here. Does not appear toxic Await Urine culture Continue treatment for Zosyn Urine is showing gram-positive cocci will change the catheter and recheck UA and UCS Depression with anxiety: Takes Duloxetine; continue HLD: Takes Atorvastatin; continue Disposition: PCP:Dr. Askew CODE STATUS: Full code VTE prophylaxis: On Coumadin; being held due to Supratherapeutic Admission and Anticipated Discharge Date Admission Date: January 13, 2023 Subjective 01/14/2023 The patient was seen and examined in medical telemetry unit He has been complaining of wheezing, shortness of breath, cough and weight gain Denies any chest pain and/or palpitation No fever and no chills Complains pain involving the neck, back and right foot Review of Systems Review of Systems: All systems reviewed and are unremarkable except as noted below Physical Exam Physical Exam: Lying in bed with minimal distress Constitutional: well developed, well nourished, + ill appearing and + morbidly obese Eyes: PERRL, conjunctivae normal, anicteric sclerae ENMT: external ear and nose normal, oropharynx normal Neck: trachea midline, no thyromegaly Respiratory: normal respiratory effort, lungs clear to auscultation Cardiovascular: Rate/Rhythm: regular rate and regular rhythm; not tachycardic Heart Sounds: normal S1, normal S2 and + murmur Extremities: + edema (Chronic edema bilaterally with skin changes in the legs) Gastrointestinal (Abdomen): Inspection/Auscultation: + abdomen distended and normal bowel sounds Percussion/Palpation: abdomen soft; abdomen nontender Musculoskeletal: No acute arthritis involving any joint Neurologic: normal touch/pain/proprioception and moves all extremities; no focal motor deficits Psychiatric: A+Ox3, euthymic affect Lymphatic: no cervical or axillary lymphadenopathy Results & Data Results & Data Vital Signs (Past 12 Hours) Vital Signs Temp Pulse Pulse Resp BP Pulse Ox O2 Del Method 01/14/23 15:27 36.9 C 87 16 114/62 92 Nasal Cannula 01/14/23 11:55 36.9 C 88 16 109/67 92 Nasal Cannula 01/14/23 07:00 77 01/14/23 10:42 91 H 22 94 Nasal Cannula 01/14/23 08:00 Nasal Cannula 01/14/23 08:05 36.5 C 95 H 16 166/102 H 98 Nasal Cannula O2 Flow Rate 01/14/23 15:27 6 01/14/23 11:55 6 01/14/23 07:00 01/14/23 10:42 6 01/14/23 08:00 6 01/14/23 08:05 6 Laboratory Results Short CBC 01/14/23 Range/Units 07:44 WBC 13.23 H (4.8-10.8) K/ul Hgb 13.4 L (14.0-18.0) g/dl Hct 41.1 L (42.0-52.0) % Plt Count 215 (130-400) K/uL BMP 01/14/23 07:44 Sodium 136 Potassium 4.3 Chloride 97 L Carbon Dioxide 36 H BUN 11 Creatinine 0.84 Glucose 206 H Calcium 9.5 Liver Function 01/14/23 Range/Units 07:44 Total Bilirubin 1.0 (0.2-1.0) mg/dl AST 16 (13-39) U/L ALT 14 (7-52) U/L Alkaline Phosphatase 139 H (34-104) U/L Albumin 3.6 (3.4-5.0) gm/dl Medications Administered Current Inpatient Medications Acetaminophen (Acetaminophen 325 Mg Tab) 650 mg PO Q4H PRN PRN Reason: Pain or Fever Stop: 02/12/23 14:41 Al Hydrox/Mg Hydrox/Simethicone (Aluminum/Magnesium Susp 30 Ml Udc) 15 ml PO Q4H PRN PRN Reason: Dyspepsia Stop: 02/12/23 14:41 Albuterol (Albut/Ipratrop 3mg/0.5mg Neb 3 Ml Vial) 3 ml NEB QIDR PRN; Protocol PRN Reason: sob Stop: 02/12/23 14:59 Last Admin: 01/14/23 10:39 Dose: 3 ml Albuterol (Albuterol Hfa 8 Gm Inhaler) 2 puffs INH QID PRN PRN Reason: Shortness Of Breath Or Wheezing Stop: 02/13/23 13:37 Aspirin (Aspirin 81 Mg Ectab) 81 mg PO QAM [facility] Stop: 02/13/23 08:59 Last Admin: 01/14/23 08:16 Dose: 81 mg Atorvastatin Calcium (Atorvastatin 40 Mg Tab) 80 mg PO QPM [facility] Stop: 02/12/23 20:59 Last Admin: 01/13/23 20:18 Dose: 80 mg Buprenorphine HCl (Buprenorphine Hcl 8 Mg Subl) 8 mg SL TID [facility] Stop: 02/13/23 14:59 Last Admin: 01/14/23 14:47 Dose: 8 mg Cyclobenzaprine HCl (Cyclobenzaprine Hcl 10 Mg Tab) 10 mg PO BID PRN PRN Reason: Muscle Spasm Stop: 02/12/23 16:06 Last Admin: 01/14/23 08:15 Dose: 10 mg Dextromethorphan Polymer Complex (Dextromethorphan Polymr Complx 60 Mg/10 Ml Udp) 60 mg PO Q12H PRN PRN Reason: Cough Stop: 02/12/23 15:56 Last Admin: 01/13/23 22:16 Dose: 60 mg Dextrose (Dextrose 50% 50 Ml Syringe) 25 - 50 ml IV UD PRN; Protocol PRN Reason: Hypoglycemia Protocol Stop: 02/12/23 15:59 Diclofenac Sodium (Diclofenac Sod 1% Gel 100 Gm Tube) 2 gm EXT BID [facility]; Protocol Stop: 02/12/23 20:59 Last Admin: 01/14/23 08:21 Dose: 2 gm Docusate Sodium (Docusate Sodium 100 Mg Cap) 100 mg PO BID [facility] Stop: 02/12/23 20:59 Last Admin: 01/14/23 08:20 Dose: 100 mg Duloxetine HCl (Duloxetine Hcl 60 Mg Cap) 60 mg PO DAILY [facility] Stop: 02/13/23 08:59 Last Admin: 01/14/23 08:17 Dose: 60 mg Famotidine (Famotidine 20 Mg Tab) 20 mg PO DAILY [facility] Stop: 02/13/23 08:59 Last Admin: 01/14/23 08:17 Dose: 20 mg Ferrous Sulfate (Ferrous Sulfate 325 Mg Tab) 325 mg PO QAM [facility] Stop: 02/13/23 08:59 Last Admin: 01/14/23 08:17 Dose: 325 mg Finasteride (Finasteride 5 Mg Tab) 5 mg PO QAM [facility] Stop: 02/13/23 08:59 Last Admin: 01/14/23 08:16 Dose: 5 mg Fluticasone Propionate (Fluticasone Propionate Na Spr 16 Gm Btl) 2 sprays NA DAILY [facility] Stop: 02/13/23 08:59 Last Admin: 01/14/23 08:20 Dose: 2 sprays Folic Acid (Folic Acid 1 Mg Tab) 1 mg PO QAM [facility] Stop: 02/13/23 08:59 Last Admin: 01/14/23 08:18 Dose: 1 mg Furosemide (Furosemide 40 Mg/4 Ml Vial) 40 mg IV BID17 [facility] Stop: 02/12/23 18:59 Last Admin: 01/14/23 08:20 Dose: 40 mg Gabapentin (Gabapentin 800 Mg Tab) 800 mg PO TID [facility] Stop: 02/12/23 20:59 Last Admin: 01/14/23 14:23 Dose: 800 mg Glucagon (Glucagon For Inj 1 Mg Vial) 1 mg SQ UD PRN; Protocol PRN Reason: Hypoglycemia Protocol Stop: 02/12/23 15:59 Glucose (Glucose 10 Tab/Tube) 4 - 8 tab PO UD PRN; Protocol PRN Reason: Hypoglycemia Treatment Stop: 02/12/23 15:59 Glucose (Glucose 40% Gel 15 Gm Tube) 15 - 30 gm PO UD PRN; Protocol PRN Reason: Hypoglycemia Protocol Stop: 02/12/23 15:59 Hydrocodone Bit/Homatropine Methylb (Hydrocodone/Homatropine Syrup 5mg/1.5mg 5ml Udp) 5 ml PO Q6H PRN PRN Reason: Cough Stop: 01/28/23 13:44 Last Admin: 01/14/23 15:48 Dose: 5 ml Hydroxyzine HCl (Hydroxyzine Hcl 25 Mg Tab) 25 mg PO QID PRN PRN Reason: Anxiety Stop: 02/12/23 16:06 Piperacillin Sod/Tazobactam (Sod 4.5 gm/ Dextrose) 120 mls @ 30 mls/hr IV Q8H [facility]; Protocol Stop: 01/23/23 14:59 Last Infusion: 01/14/23 16:19 Dose: Infused Methylprednisolone 40 mg/ (Syringe) 0.64 mls @ 1.5 mls/min IV Q12H [facility] Stop: 02/13/23 13:59 Last Admin: 01/14/23 14:47 Dose: 1.5 mls/min Acetaminophen (Ofirmev) 1,000 mg in 100 mls @ 400 mls/hr IV Q12H [facility] Stop: 01/17/23 13:59 Last Infusion: 01/14/23 14:41 Dose: Infused Insulin Aspart (Insulin Aspart Per Unit Charge) 0 units SC ACHS [facility] Stop: 02/12/23 16:29 Last Admin: 01/14/23 12:13 Dose: 44 units Insulin Aspart (Insulin Aspart Per Unit Charge) 0 units SC 0000,[id number] [facility] Stop: 02/13/23 00:00 Last Admin: 01/14/23 05:07 Dose: 10 units Insulin Glargine (Lantus Per Unit Charge) 0 units SQ BID [facility]; Protocol Stop: 02/12/23 20:59 Last Admin: 01/14/23 08:14 Dose: 40 units Isosorbide Mononitrate (Isosorbide [place] Extended Rel 30 Mg Tabcr) 30 mg PO DAILY [facility] Stop: 02/13/23 08:59 Last Admin: 01/14/23 08:17 Dose: 30 mg Lactobacillus Acidophilus (Advanced Probiotic 1250 Mg Capsule) 2 cap PO DAILY [facility] Stop: 02/13/23 09:44 Last Admin: 01/14/23 10:51 Dose: 2 cap Magnesium Hydroxide (Magnesium Hydroxide Susp 30 Ml Udc) 30 ml PO Q12H PRN PRN Reason: Constipation Stop: 02/12/23 14:41 Magnesium Oxide (Magnesium Oxide 400 Mg Tab) 400 mg PO DAILY [facility] Stop: 02/13/23 08:59 Last Admin: 01/14/23 08:18 Dose: 400 mg Metoprolol Succinate (Metoprolol Succ 25mg Ext Rel Tab) 75 mg PO BID [facility] Stop: 02/12/23 20:59 Last Admin: 01/14/23 08:19 Dose: 75 mg Miconazole Nitrate (Miconazole Nitrate Powder 85 Gm) 1 appln EXT PRN PRN PRN Reason: Affected Skin Folds Stop: 02/13/23 09:45 Miscellaneous (Remove Nicoderm Patch) 1 each N/A DAILY@0859 [facility] Stop: 02/13/23 08:58 Last Admin: 01/14/23 08:21 Dose: 1 each Miscellaneous (Carbohydrates For Hypoglycemia ) 15 - 30 gm PO UD PRN PRN Reason: Hypoglycemia Protocol Stop: 02/12/23 15:59 Miscellaneous Information (Pharmacy Glycemic Mgmt Consult) 1 each N/A UD PRN PRN Reason: Consult Stop: 02/12/23 15:59 Nicotine (Nicotine 21 Mg/24 Hr Tdsy) 21 mg TD QAM [facility] Stop: 02/12/23 15:59 Last Admin: 01/14/23 08:20 Dose: 21 mg Ondansetron HCl (Ondansetron Inj 2 Mg/Ml 2 Ml Vial) 4 mg IV Q6H PRN PRN Reason: Nausea Stop: 02/12/23 14:41 Pantoprazole Sodium (Pantoprazole 40 Mg Tab) 40 mg PO DAILYBB [facility] Stop: 02/13/23 06:29 Last Admin: 01/14/23 05:08 Dose: 40 mg Polyethylene Glycol (Polyethylene (Miralax) 17 Gm Pack) 17 gm PO DAILY PRN PRN Reason: Constipation Stop: 02/12/23 14:41 Last Admin: 01/13/23 20:48 Dose: 17 gm Potassium Chloride (Potassium Chloride Crtab 20 Meq Tabcr) 40 meq PO BID [facility] Stop: 02/12/23 20:59 Last Admin: 01/14/23 08:20 Dose: 40 meq Spironolactone (Sp[facility]actone 25 Mg Tab) [facility] Stop: 02/13/23 08:59 Last Admin: 01/14/23 08:17 Dose: 25 mg Tamsulosin HCl (Tamsulosin Hcl 0.4 Mg Cap) 0.8 mg PO [facility] Stop: 02/13/23 08:59 Last Admin: 01/14/23 08:18 Dose: 0.8 mg Vitamin D (Cholecalciferol 5,000 Units 125 Mcg Tab) 5,000 [facility] Stop: 02/13/23 08:59 Last Admin: 01/14/23 08:18 Dose: 5,000 units Warfarin Sodium (Warfarin Sod 2.5 Mg Tab) 2.5 mg PO [id number]@1600 [facility] Stop: 02/13/23 15:59 Last Admin: 01/14/23 15:48 Dose: 2.5 mg Warfarin Sodium (Warfarin Sod 5 Mg Tab) 5 mg PO [id number] [facility] Stop: 02/14/23 15:59 (5) Fluid overload Hypervolemia type: unspecified Qualified Code(s): E87.70 - Fluid overload, unspecified (9) COPD (chronic obstructive pulmonary disease) COPD type: unspecified COPD Qualified Code(s): J44.9 - Chronic obstructive pulmonary disease, unspecified
[2023-01-14] MEDS: ALBUTEROL HFA 8 GM INHALER INH PRN (19:24)
[2023-01-14] MEDS ORDERED: buprenorphine HCL 8 MG SUBL SL SCH (21:00)
[2023-01-14] MEDS: ATORVASTATIN 40 MG TAB PO SCH (21:17)
[2023-01-14] MEDS: LORazepam 0.5 MG TAB PO PRN (21:31)
[2023-01-15] MEDS: methylPREDNISolone 40 MG in SYRINGE 0 ML IV SCH ×2 (01:23→14:04)
[2023-01-15] MEDS: ACETAMINOPHEN 1,000 MG/100 ML VIAL IV SCH ×2 (01:23→14:04)
[2023-01-15] MEDS: INSULIN ASPART PER UNIT CHARGE SC SCH ×6 (01:45→20:22)
[2023-01-15] MEDS: PIPERACILLIN/TAZOBACTAM 4.5 GM in DEXTROSE 5% 100 ML IV SCH ×2 (04:44→11:42)
--- NOTE | 2023-01-15 04:51 | Electrocardiogram Report ---
Test Reason : Blood Pressure : / mmHG Vent. Rate : 077 BPM Atrial Rate : 077 BPM P-R Int : 160 ms QRS Dur : 104 ms QT Int : 400 ms P-R-T Axes : 049 047 073 degrees QTc Int : 452 ms Sinus rhythm Incomplete right bundle branch block Nonspecific ST and T wave abnormality Abnormal ECG When compared with ECG of 13-JAN-2023 12:27, No significant change Confirmed by Shaquille Canales ([id number] on 01/15/2023 4:51:19 AM Referred By: REFERRED SELF Confirmed By:Shaquille Canales
[2023-01-15] MEDS: PANTOprazole 40 MG TAB PO SCH (05:08)
[2023-01-15] MEDS: HYDROcodone/HOMATROPINE SYRUP 5MG/1.5MG 5ML UDP PO PRN ×3 (06:15→18:01)
[2023-01-15] MEDS: TAMSULOSIN HCL 0.4 MG CAP PO SCH (08:09)
[2023-01-15] MEDS: CYCLOBENZAPRINE HCL 10 MG TAB PO PRN ×2 (08:09→20:24)
[2023-01-15] MEDS: LANTUS PER UNIT CHARGE SQ SCH (08:09)
[2023-01-15] MEDS: buprenorphine HCL 8 MG SUBL SL SCH ×3 (08:09→20:24)
[2023-01-15] MEDS: DOCUSATE SODIUM 100 MG CAP PO SCH ×2 (08:10→20:29)
[2023-01-15] MEDS: FERROUS SULFATE 325 MG TAB PO SCH (08:10)
[2023-01-15] MEDS: FAMOTIDINE 20 MG TAB PO SCH (08:11)
[2023-01-15] MEDS: FOLIC ACID 1 MG TAB PO SCH (08:11)
[2023-01-15] MEDS: DULoxetine HCL 60 MG CAP PO SCH (08:11)
[2023-01-15] MEDS: ASPIRIN 81 MG ECTAB PO SCH (08:11)
[2023-01-15] MEDS: POTASSIUM CHLORIDE CRTAB 20 MEQ TABCR PO SCH ×2 (08:12→20:24)
[2023-01-15] MEDS: GABAPENTIN 800 MG TAB PO SCH ×3 (08:12→20:25)
[2023-01-15] MEDS: METOPROLOL SUCC 25MG EXT REL TAB PO SCH ×2 (08:12→20:25)
[2023-01-15] MEDS: ADVANCED PROBIOTIC 1250 MG CAPSULE PO SCH (08:13)
[2023-01-15] MEDS: SPIRONOLACTONE 25 MG TAB PO SCH (08:13)
[2023-01-15] MEDS: CHOLECALCIFEROL 5,000 UNITS 125 MCG TAB PO SCH (08:13)
[2023-01-15] MEDS: FINASTERIDE 5 MG TAB PO SCH (08:13)
[2023-01-15] MEDS: ISOSORBIDE MONO EXTENDED REL 30 MG TABCR PO SCH (08:13)
[2023-01-15] MEDS: FUROSEMIDE 40 MG/4 ML VIAL IV SCH ×2 (08:14→16:17)
[2023-01-15] MEDS: MAGNESIUM OXIDE 400 MG TAB PO SCH (08:14)
[2023-01-15] MEDS ORDERED: LANTUS PER UNIT CHARGE SC ONE (08:15)
[2023-01-15] MEDS: FLUTICASONE PROPIONATE NA SPR 16 GM BTL SCH (08:16)
[2023-01-15] MEDS: DICLOFENAC SOD 1% GEL 100 GM TUBE EXT SCH ×2 (08:17→20:30)
[2023-01-15] MEDS: NICOTINE 21 MG/24 HR TDSY TD SCH (08:17)
[2023-01-15] MEDS: ALBUTEROL HFA 8 GM INHALER INH PRN ×3 (08:24→20:37)
[2023-01-15 09:04] LABS: Basophils # (auto) 0.04 K/uL (0-0.2); Basophils % (auto) 0.2 %; Hematocrit (blood only) 41.9 % (42.0-52.0); Hemoglobin 13.1 g/dl (14.0-18.0); Immature Granulocytes # (auto) 0.21 K/uL (0.01-0.20); Immature Granulocytes % (auto) 1.1 %; Lymphocytes # (auto) 1.63 K/uL (1.2-3.4); Lymphocytes % (auto) 8.9 %; Mean Corpuscular Hemoglobin 27.2 pg (25.0-34.0); Mean Corpuscular Hgb Conc 31.3 g/dL (32.0-36.0); Mean Corpuscular Volume 86.9 fL (80.0-100.0); Mean Platelet Volume 10.5 fL (9.4-12.4); Monocytes # (auto) 0.76 K/uL (0.11-0.59); Monocytes % (auto) 4.2 %; Neutrophils # (auto) 15.66 K/uL (1.40-6.50); Neutrophils % (auto) 85.6 %; Platelet Count 236 K/uL (130-400); RDW Coefficient of Variation 17.7 % (11.5-14.5); RDW Standard Deviation 54.7 fL (36.4-46.3); Red Blood Count 4.82 M/uL (4.70-6.10)
[2023-01-15 09:20] LABS: BUN Creatinine Ratio 16.5 (10-20); Creatinine Clr Calc Pharmacy 178.3 ml/min; Est GFR (African American) 111.9 ml/min; Est GFR (Non-African American) 96.6 ml/min; Magnesium 2.1 mg/dl (1.7-2.4); Potassium 4.4 mmol/L (3.5-5.1)
[2023-01-15 09:29] LABS: Prothrombin Time 20.7 Seconds (9.0-12.0)
--- NOTE | 2023-01-15 13:55 | Electrocardiogram Report ---
Test Reason : Blood Pressure : / mmHG Vent. Rate : 070 BPM Atrial Rate : 070 BPM P-R Int : 172 ms QRS Dur : 104 ms QT Int : 380 ms P-R-T Axes : 062 065 077 degrees QTc Int : 410 ms Normal sinus rhythm Normal ECG When compared with ECG of 14-JAN-2023 06:22, Nonspecific T wave abnormality has replaced inverted T waves in Anterior leads Confirmed by Stanton Porter [id number]) on 01/15/2023 1:55:11 PM Referred By: REFERRED SELF Confirmed By:Stanton Porter
--- NOTE | 2023-01-15 14:51 | Pharmacy Report ---
Pharmacy Glycemic Short Note 2 - Date of Service January 15, 2023 - Glycemic Short BSG Results (Last 24 hours): 01/14/23 01/14/23 01/15/23 16:47 20:08 01:30 Glucose POC Glucose 120 H 252 H 322 H* 01/15/23 01/15/23 01/15/23 01:36 04:46 04:47 Glucose POC Glucose 297 H 359 H* 306 H* 01/15/23 01/15/23 01/15/23 07:50 08:27 11:42 Glucose 255 H POC Glucose 241 H 233 H OUTPATIENT ANTIDIABETIC REGIMEN: * Lantus 50 units HS, glipizide *Novolog - will need to clarify if still taking / listed on previous admissions ASSESSMENT: 01/15/23: * BSG's throughout the day yesterday [phone] mg/dL. * Fasting BSG today 241 mg/dL. Administered 10 additional units at breakfast (total of 50 units Lantus given), aiming to increase TDD by no more than 20% by allowing evening dose to be given per scale. * Lunchtime BSG elevated today at 233 mg/dL, however patient has been noted to be higher at lunchtime. Tightening of NovoLog parameters limited by lower dinnertime BSG yesterday. Continue to trend and adjust as indicated. 01/14/23 * 52 year old admitted with shortness of breath. Pharmacy consulted for glycemic management. * Patient known to glycemic service as previously admitted earlier this month. At that time had also been on prednisone 40 mg daily and daily insulin requirements were closer to ~175 units per day PLAN FOR INPATIENT GLYCEMIC CONTROL: * Hold outpatient oral diabetes medications * Basal insulin * Lantus 50 units Qam * Lantus 30-50 units HS per scale * Bolus insulin * NovoLog per scale ACHS or Q6hrs while NPO * Goal Range: Low 110 mg/dL - High 140 mg/dL * Correction Factor: 8 mg/dL/unit * Nutritional / Prandial insulin per carb ratio of 1 unit per 3 grams CHO consumed
--- NOTE | 2023-01-15 15:55 | Hospitalist Progress Note ---
Date of Service January 15, 2023 Assessment & Plan (1) Acute on chronic heart failure with preserved ejection fraction: (2) Hypoxia: (3) Hypomagnesemia: (4) 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: (5) Fluid overload: (6) BPH (benign prostatic hyperplasia): (7) Indwelling Fontaine catheter present: (8) Depression with anxiety: (9) COPD (chronic obstructive pulmonary disease): Plan 52 year old presents with HFpEF and COPD exacerbation with hypoxia. Patient supratherapeutic INR 3.6; will hold Coumadin and reassess, Diabetes with insulin dependence. Will diurese and add additional Prednisone and supportive treatment with nebs and Delsym. acute on chronic heart failure with preserved ejection fraction: Fluid overload: Hypoxia: Given 40 mg Lasix in ED; continue 40 mg IV BID Takes 40 mg PO daily at home; possible noncompliance Most recent Echo 12/10/22: EF 55-60%, Mild concentric LVH, RV dilation. Strict I/O 1800mL Continue Spirinolactone with KCL replacements as he takes at home CXR negative-mild congestive changes Daily weights Has been getting Lasix 40 mg IV twice daily Monitor intake output and PRP We will increase the Lasix to 40 mg IV every 8 hourly Still looks bloated and has an negative balance of 3166 mL COPD: Likely has exacerbation Tobacco Use: Chronic cough with acute exacerbation Takes Prednisone 10 mg PO daily; will start Prednisone 40 mg PO daily Will give Hycodan PRN and Nebs PRN Smoking cessation encouraged Nicotine patch ordered Wears 3 LNC QHS but has been requiring 6 L/min now Will DC prednisone and give Solu-Medrol 40 mg twice daily for now Solu-Medrol will be decreased to 20 mg IV twice daily Augmentin has been added to cover UTI and respiratory pathogens Chronic Anticoagulation: Supratherapeutic: Takes Coumadin 2.5 on and Th, 5 mg all other days Compliant with Coumadin clinic Last night INR 3.1; did not take Coumadin In ED INR 3.6; will hold Coumadin tonight and recheck in AM We will continue Coumadin Hypomagnesia: Mg+ 1.5; replace with 2G Magnesium; trend Mg+ in AM Type 2 diabetes with insulin deficiency: Takes Lantus 100 Units QHS and Glipizide; hold Place on ACHS FSBS SSI Glycemic Pharmacy consultation BPH: Indwelling Fontaine catheter, chronic UA appears infected however has chronically dirty appearing urine Last admission: Urology consutlation and his urine culture at that time grew lactobacillus indwelling fontaine catheter in place ; Change out fontaine while here WBC 13.04; trend while here. Does not appear toxic Await Urine culture Continue treatment for Zosyn Urine is showing gram-positive cocci will change the catheter and recheck UA and UCS Urine culture is growing Enterococcus faecalis and that is pansensitive Intravenous Zosyn has been discontinued and oral Augmentin has been started Depression with anxiety: Takes Duloxetine; continue HLD: Takes Atorvastatin; continue Disposition: PCP:Dr. Askew CODE STATUS: Full code VTE prophylaxis: On Coumadin; being held due to Supratherapeutic Admission and Anticipated Discharge Date Admission Date: January 13, 2023 Subjective 01/14/2023 The patient was seen and examined in medical telemetry unit He has been complaining of wheezing, shortness of breath, cough and weight gain Denies any chest pain and/or palpitation No fever and no chills Complains pain involving the neck, back and right foot 01/15/2023 The patient was seen and examined in the medical telemetry unit He has been worse today with increasing shortness of breath and cough with productive of phlegm Looks bloated Denies any fever and or chills Review of Systems Review of Systems: All systems reviewed and are unremarkable except as noted below Physical Exam Physical Exam: Lying in bed with minimal distress Constitutional: well developed, well nourished, + ill appearing and + morbidly obese Eyes: PERRL, conjunctivae normal, anicteric sclerae ENMT: external ear and nose normal, oropharynx normal Neck: trachea midline, no thyromegaly Respiratory: normal respiratory effort, lungs clear to auscultation Cardiovascular: Rate/Rhythm: regular rate and regular rhythm; not tachycardic Heart Sounds: normal S1, normal S2 and + murmur Extremities: + edema (Chronic edema bilaterally with skin changes in the legs) Gastrointestinal (Abdomen): Inspection/Auscultation: + abdomen distended and normal bowel sounds Percussion/Palpation: abdomen soft; abdomen nontender Neurologic: normal touch/pain/proprioception and moves all extremities; no focal motor deficits Psychiatric: A+Ox3, euthymic affect Lymphatic: no cervical or axillary lymphadenopathy Results & Data Results & Data Vital Signs (Past 12 Hours) Vital Signs Temp Pulse Pulse Resp BP Pulse Ox O2 Del Method 01/15/23 14:53 71 01/15/23 07:00 80 01/15/23 11:58 36.5 C 76 20 146/86 H 97 Nasal Cannula 01/15/23 09:00 Nasal Cannula 01/15/23 08:06 36.6 C 68 20 149/86 H 97 Room Air 01/15/23 04:00 36.7 C 71 20 132/87 93 Nasal Cannula O2 Flow Rate 01/15/23 14:53 01/15/23 07:00 01/15/23 11:58 5 01/15/23 09:00 5 01/15/23 08:06 01/15/23 04:00 5 Laboratory Results Short CBC 01/15/23 Range/Units 08:27 WBC 18.30 H (4.8-10.8) K/ul Hgb 13.1 L (14.0-18.0) g/dl Hct 41.9 L (42.0-52.0) % Plt Count 236 (130-400) K/uL BMP 01/15/23 08:27 Sodium 139 Potassium 4.4 Chloride 97 L Carbon Dioxide 38 H BUN 15 Creatinine 0.91 Glucose 255 H Calcium 10.0 Medications Administered Current Inpatient Medications Acetaminophen (Acetaminophen 325 Mg Tab) 650 mg PO Q4H PRN PRN Reason: Pain or Fever Stop: 02/12/23 14:41 Al Hydrox/Mg Hydrox/Simethicone (Aluminum/Magnesium Susp 30 Ml Udc) 15 ml PO Q4H PRN PRN Reason: Dyspepsia Stop: 02/12/23 14:41 Albuterol (Albut/Ipratrop 3mg/0.5mg Neb 3 Ml Vial) 3 ml NEB QIDR PRN; Protocol PRN Reason: sob Stop: 02/12/23 14:59 Last Admin: 01/14/23 10:39 Dose: 3 ml Albuterol (Albuterol Hfa 8 Gm Inhaler) 2 puffs INH QID PRN PRN Reason: Shortness Of Breath Or Wheezing Stop: 02/13/23 13:37 Last Admin: 01/15/23 08:24 Dose: 2 puffs Amoxicillin/Clavulanate Potassium (Amoxicillin/Clavulanate 875 Mg Tab) 1 tab PO BID [facility]; Protocol Stop: 01/20/23 19:59 Aspirin (Aspirin 81 Mg Ectab) 81 mg PO QAM [facility] Stop: 02/13/23 08:59 Last Admin: 01/15/23 08:11 Dose: 81 mg Atorvastatin Calcium (Atorvastatin 40 Mg Tab) 80 mg PO QPM [facility] Stop: 02/12/23 20:59 Last Admin: 01/14/23 21:17 Dose: 80 mg Buprenorphine HCl (Buprenorphine Hcl 8 Mg Subl) 8 mg SL TID [facility] Stop: 02/13/23 14:59 Last Admin: 01/15/23 14:04 Dose: 8 mg Cyclobenzaprine HCl (Cyclobenzaprine Hcl 10 Mg Tab) 10 mg PO BID PRN PRN Reason: Muscle Spasm Stop: 02/12/23 16:06 Last Admin: 01/15/23 08:09 Dose: 10 mg Dextromethorphan Polymer Complex (Dextromethorphan Polymr Complx 60 Mg/10 Ml Udp) 60 mg PO Q12H PRN PRN Reason: Cough Stop: 02/12/23 15:56 Last Admin: 01/13/23 22:16 Dose: 60 mg Dextrose (Dextrose 50% 50 Ml Syringe) 25 - 50 ml IV UD PRN; Protocol PRN Reason: Hypoglycemia Protocol Stop: 02/12/23 15:59 Diclofenac Sodium (Diclofenac Sod 1% Gel 100 Gm Tube) 2 gm EXT BID [facility]; Protocol Stop: 02/12/23 20:59 Last Admin: 01/15/23 08:17 Dose: 2 gm Docusate Sodium (Docusate Sodium 100 Mg Cap) 100 mg PO BID [facility] Stop: 02/12/23 20:59 Last Admin: 01/15/23 08:10 Dose: 100 mg Duloxetine HCl (Duloxetine Hcl 60 Mg Cap) 60 mg PO DAILY [facility] Stop: 02/13/23 08:59 Last Admin: 01/15/23 08:11 Dose: 60 mg Famotidine (Famotidine 20 Mg Tab) 20 mg PO DAILY [facility] Stop: 02/13/23 08:59 Last Admin: 01/15/23 08:11 Dose: 20 mg Ferrous Sulfate (Ferrous Sulfate 325 Mg Tab) 325 mg PO QAM [facility] Stop: 02/13/23 08:59 Last Admin: 01/15/23 08:10 Dose: 325 mg Finasteride (Finasteride 5 Mg Tab) 5 mg PO QAM [facility] Stop: 02/13/23 08:59 Last Admin: 01/15/23 08:13 Dose: 5 mg Fluticasone Propionate (Fluticasone Propionate Na Spr 16 Gm Btl) 2 sprays NA DAILY [facility] Stop: 02/13/23 08:59 Last Admin: 01/15/23 08:16 Dose: 2 sprays Folic Acid (Folic Acid 1 Mg Tab) 1 mg PO QAM [facility] Stop: 02/13/23 08:59 Last Admin: 01/15/23 08:11 Dose: 1 mg Furosemide (Furosemide 40 Mg/4 Ml Vial) 40 mg IV BID17 [facility] Stop: 02/12/23 18:59 Last Admin: 01/15/23 08:14 Dose: 40 mg Gabapentin (Gabapentin 800 Mg Tab) 800 mg PO TID [facility] Stop: 02/12/23 20:59 Last Admin: 01/15/23 14:05 Dose: 800 mg Glucagon (Glucagon For Inj 1 Mg Vial) 1 mg SQ UD PRN; Protocol PRN Reason: Hypoglycemia Protocol Stop: 02/12/23 15:59 Glucose (Glucose 10 Tab/Tube) 4 - 8 tab PO UD PRN; Protocol PRN Reason: Hypoglycemia Treatment Stop: 02/12/23 15:59 Glucose (Glucose 40% Gel 15 Gm Tube) 15 - 30 gm PO UD PRN; Protocol PRN Reason: Hypoglycemia Protocol Stop: 02/12/23 15:59 Hydrocodone Bit/Homatropine Methylb (Hydrocodone/Homatropine Syrup 5mg/1.5mg 5ml Udp) 5 ml PO Q6H PRN PRN Reason: Cough Stop: 01/28/23 13:44 Last Admin: 01/15/23 11:42 Dose: 5 ml Hydroxyzine HCl (Hydroxyzine Hcl 25 Mg Tab) 25 mg PO QID PRN PRN Reason: Anxiety Stop: 02/12/23 16:06 Piperacillin Sod/Tazobactam (Sod 4.5 gm/ Dextrose) 120 mls @ 30 mls/hr IV Q8H [facility]; Protocol Stop: 01/15/23 16:00 Last Admin: 01/15/23 11:42 Dose: 30 mls/hr Methylprednisolone 40 mg/ (Syringe) 0.64 mls @ 1.5 mls/min IV Q12H [facility] Stop: 02/13/23 13:59 Last Admin: 01/15/23 14:04 Dose: 1.5 mls/min Acetaminophen (Ofirmev) 1,000 mg in 100 mls @ 400 mls/hr IV Q12H [facility] Stop: 01/17/23 13:59 Last Infusion: 01/15/23 14:32 Dose: Infused Insulin Aspart (Insulin Aspart Per Unit Charge) 0 units SC ACHS [facility] Stop: 02/12/23 16:29 Last Admin: 01/15/23 12:44 Dose: 45 units Insulin Glargine (Lantus Per Unit Charge) 0 units SQ HS [facility]; Protocol Stop: 01/15/23 21:01 Isosorbide Mononitrate (Isosorbide [place] Extended Rel 30 Mg Tabcr) 30 mg PO DAILY [facility] Stop: 02/13/23 08:59 Last Admin: 01/15/23 08:13 Dose: 30 mg Lactobacillus Acidophilus (Advanced Probiotic 1250 Mg Capsule) 2 cap PO DAILY [facility] Stop: 02/13/23 09:44 Last Admin: 01/15/23 08:13 Dose: 2 cap Lorazepam (Lorazepam 0.5 Mg Tab) 0.5 mg PO Q8 PRN PRN Reason: Anxiety Stop: 02/13/23 18:14 Last Admin: 01/14/23 21:31 Dose: 0.5 mg Magnesium Hydroxide (Magnesium Hydroxide Susp 30 Ml Udc) 30 ml PO Q12H PRN PRN Reason: Constipation Stop: 02/12/23 14:41 Magnesium Oxide (Magnesium Oxide 400 Mg Tab) 400 mg PO DAILY [facility] Stop: 02/13/23 08:59 Last Admin: 01/15/23 08:14 Dose: 400 mg Metoprolol Succinate (Metoprolol Succ 25mg Ext Rel Tab) 75 mg PO BID [facility] Stop: 02/12/23 20:59 Last Admin: 01/15/23 08:12 Dose: 75 mg Miconazole Nitrate (Miconazole Nitrate Powder 85 Gm) 1 appln EXT PRN PRN PRN Reason: Affected Skin Folds Stop: 02/13/23 09:45 Miscellaneous (Remove Nicoderm Patch) 1 each N/A DAILY@0859 [facility] Stop: 02/13/23 08:58 Last Admin: 01/15/23 08:18 Dose: 1 each Miscellaneous (Carbohydrates For Hypoglycemia ) 15 - 30 gm PO UD PRN PRN Reason: Hypoglycemia Protocol Stop: 02/12/23 15:59 Miscellaneous Information (Pharmacy Glycemic Mgmt Consult) 1 each N/A UD PRN PRN Reason: Consult Stop: 02/12/23 15:59 Nicotine (Nicotine 21 Mg/24 Hr Tdsy) 21 mg TD QAM [facility] Stop: 02/12/23 15:59 Last Admin: 01/15/23 08:17 Dose: 21 mg Ondansetron HCl (Ondansetron Inj 2 Mg/Ml 2 Ml Vial) 4 mg IV Q6H PRN PRN Reason: Nausea Stop: 02/12/23 14:41 Pantoprazole Sodium (Pantoprazole 40 Mg Tab) 40 mg PO DAILYBB [facility] Stop: 02/13/23 06:29 Last Admin: 01/15/23 05:08 Dose: 40 mg Polyethylene Glycol (Polyethylene (Miralax) 17 Gm Pack) 17 gm PO DAILY PRN PRN Reason: Constipation Stop: 02/12/23 14:41 Last Admin: 01/13/23 20:48 Dose: 17 gm Potassium Chloride (Potassium Chloride Crtab 20 Meq Tabcr) 40 meq PO BID [facility] Stop: 02/12/23 20:59 Last Admin: 01/15/23 08:12 Dose: 40 meq Spironolactone (Spironolactone 25 Mg Tab) 25 mg PO [facility] Stop: 02/13/23 08:59 Last Admin: 01/15/23 08:13 Dose: 25 mg Tamsulosin HCl (Tamsulosin Hcl 0.4 Mg Cap) 0.8 mg PO [facility] Stop: 02/13/23 08:59 Last Admin: 01/15/23 08:09 Dose: 0.8 mg Vitamin D (Cholecalciferol 5,000 Units 125 Mcg Tab) [facility] [place] Stop: 02/13/23 08:59 Last Admin: 01/15/23 08:13 Dose: 5,000 units Warfarin Sodium (Warfarin Sod 2.5 Mg Tab) 2.5 mg PO [id number]@1600 [facility] Stop: 02/13/23 15:59 Last Admin: 01/14/23 15:48 Dose: 2.5 mg Warfarin Sodium (Warfarin Sod 5 Mg Tab) 5 mg PO [id number] [facility] Stop: 02/14/23 15:59 (5) Fluid overload Hypervolemia type: unspecified Qualified Code(s): E87.70 - Fluid overload, unspecified (9) COPD (chronic obstructive pulmonary disease) COPD type: unspecified COPD Qualified Code(s): J44.9 - Chronic obstructive pulmonary disease, unspecified
[2023-01-15] MEDS: WARFARIN SOD 5 MG TAB PO SCH (16:16)
[2023-01-15] MEDS: LORazepam 0.5 MG TAB PO PRN (20:24)
[2023-01-15] MEDS: ATORVASTATIN 40 MG TAB PO SCH (20:25)
[2023-01-15] MEDS: AMOXICILLIN/CLAVULANATE 875 MG TAB PO SCH (20:46)
[2023-01-15] MEDS ORDERED: LANTUS PER UNIT CHARGE SQ SCH (21:00)
[2023-01-16] MEDS: FUROSEMIDE 40 MG/4 ML VIAL IV SCH ×3 (00:57→15:30)
[2023-01-16] MEDS: ACETAMINOPHEN 1,000 MG/100 ML VIAL IV SCH ×2 (01:00→13:51)
[2023-01-16] MEDS: methylPREDNISolone 20 MG in SYRINGE 0 ML IV SCH ×2 (01:02→13:52)
[2023-01-16] MEDS ORDERED: INSULIN ASPART PER UNIT CHARGE SC SCH (02:00)
[2023-01-16] MEDS: PANTOprazole 40 MG TAB PO SCH (06:34)
[2023-01-16 08:04] LABS: INR 2.6 (0.9-1.1); Prothrombin Time 26.7 Seconds (9.0-12.0)
[2023-01-16] MEDS: ISOSORBIDE MONO EXTENDED REL 30 MG TABCR PO SCH (08:43)
[2023-01-16] MEDS: SPIRONOLACTONE 25 MG TAB PO SCH (08:43)
[2023-01-16] MEDS: ASPIRIN 81 MG ECTAB PO SCH (08:43)
[2023-01-16] MEDS: FERROUS SULFATE 325 MG TAB PO SCH (08:43)
[2023-01-16] MEDS: TAMSULOSIN HCL 0.4 MG CAP PO SCH (08:43)
[2023-01-16] MEDS: DOCUSATE SODIUM 100 MG CAP PO SCH ×2 (08:43→20:21)
[2023-01-16] MEDS: DULoxetine HCL 60 MG CAP PO SCH (08:43)
[2023-01-16] MEDS: FAMOTIDINE 20 MG TAB PO SCH (08:43)
[2023-01-16] MEDS: POTASSIUM CHLORIDE CRTAB 20 MEQ TABCR PO SCH ×2 (08:44→20:25)
[2023-01-16] MEDS: METOPROLOL SUCC 25MG EXT REL TAB PO SCH ×2 (08:44→20:22)
[2023-01-16] MEDS: NICOTINE 21 MG/24 HR TDSY TD SCH (08:44)
[2023-01-16] MEDS: GABAPENTIN 800 MG TAB PO SCH ×3 (08:44→20:22)
[2023-01-16] MEDS: ADVANCED PROBIOTIC 1250 MG CAPSULE PO SCH (08:45)
[2023-01-16] MEDS: FINASTERIDE 5 MG TAB PO SCH (08:45)
[2023-01-16] MEDS: FOLIC ACID 1 MG TAB PO SCH (08:45)
[2023-01-16] MEDS: MAGNESIUM OXIDE 400 MG TAB PO SCH (08:45)
[2023-01-16] MEDS: CHOLECALCIFEROL 5,000 UNITS 125 MCG TAB PO SCH (08:45)
[2023-01-16] MEDS: DICLOFENAC SOD 1% GEL 100 GM TUBE EXT SCH ×2 (08:47→20:24)
[2023-01-16] MEDS: FLUTICASONE PROPIONATE NA SPR 16 GM BTL SCH (08:47)
[2023-01-16] MEDS: INSULIN ASPART PER UNIT CHARGE SC SCH ×4 (09:00→20:46)
[2023-01-16] MEDS: LANTUS PER UNIT CHARGE SQ SCH ×2 (09:02→20:46)
[2023-01-16] MEDS: LORazepam 0.5 MG TAB PO PRN ×2 (09:03→20:18)
[2023-01-16] MEDS: buprenorphine HCL 8 MG SUBL SL SCH ×3 (09:03→20:18)
[2023-01-16] MEDS: CYCLOBENZAPRINE HCL 10 MG TAB PO PRN ×2 (09:03→20:18)
[2023-01-16] MEDS: HYDROcodone/HOMATROPINE SYRUP 5MG/1.5MG 5ML UDP PO PRN ×3 (09:04→21:55)
[2023-01-16] MEDS: AMOXICILLIN/CLAVULANATE 875 MG TAB PO SCH ×2 (10:42→20:21)
[2023-01-16] MEDS: AMMONIUM LACTATE 12% LOTION 225 GM BTL EXT SCH ×2 (14:32→20:21)
--- NOTE | 2023-01-16 14:59 | Hospitalist Progress Note ---
Date of Service January 16, 2023 Assessment & Plan (1) Acute on chronic heart failure with preserved ejection fraction: Plan: Has been diuresing enough and will continue to diurese until kidney function is holding (2) Hypoxia: Plan: Hypoxia has been improving and he requires 3 L of oxygen to maintain saturation now (3) Hypomagnesemia: (4) 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: Plan: Blood sugar seems to be on the upper side of normal (5) Fluid overload: Plan: Has been diuresing enough (6) BPH (benign prostatic hyperplasia): (7) Indwelling Fontaine catheter present: (8) Depression with anxiety: (9) COPD (chronic obstructive pulmonary disease): Plan 52 year old presents with HFpEF and COPD exacerbation with hypoxia. Patient supratherapeutic INR 3.6; will hold Coumadin and reassess, Diabetes with insulin dependence. Will diurese and add additional Prednisone and supportive treatment with nebs and Delsym. acute on chronic heart failure with preserved ejection fraction: Fluid overload: Hypoxia: Given 40 mg Lasix in ED; continue 40 mg IV BID Takes 40 mg PO daily at home; possible noncompliance Most recent Echo 12/10/22: EF 55-60%, Mild concentric LVH, RV dilation. Strict I/O 1800mL Continue Spirinolactone with KCL replacements as he takes at home CXR negative-mild congestive changes Daily weights Has been getting Lasix 40 mg IV twice daily Monitor intake output and PRP We will increase the Lasix to 40 mg IV every 8 hourly Still looks bloated and has an negative balance of 489 2 mL We will continue Lasix 40 mg 3 times a day-creatinine and electrolytes will be monitored COPD: Likely has exacerbation Tobacco Use: Chronic cough with acute exacerbation Takes Prednisone 10 mg PO daily; will start Prednisone 40 mg PO daily Will give Hycodan PRN and Nebs PRN Smoking cessation encouraged Nicotine patch ordered Wears 3 LNC QHS but has been requiring 6 L/min now Will DC prednisone and give Solu-Medrol 40 mg twice daily for now Solu-Medrol will be decreased to 20 mg IV twice daily Augmentin has been added to cover UTI and respiratory pathogens Clinically better and will continue current regimen Chronic Anticoagulation: Supratherapeutic: Takes Coumadin 2.5 on and Th, 5 mg all other days Compliant with Coumadin clinic Last night INR 3.1; did not take Coumadin In ED INR 3.6; will hold Coumadin tonight and recheck in AM We will continue Coumadin Hypomagnesia: Mg+ 1.5; replace with 2G Magnesium; trend Mg+ in AM Type 2 diabetes with insulin deficiency: Takes Lantus 100 Units QHS and Glipizide; hold Place on ACHS FSBS SSI Glycemic Pharmacy consultation BPH: Indwelling Fontaine catheter, chronic::: UTI due to indwelling Fontaine catheter-Enterococcus faecalis--pansensitive except tetracycline UA appears infected however has chronically dirty appearing urine Last admission: Urology consutlation and his urine culture at that time grew lactobacillus indwelling fontaine catheter in place ; Change out fontaine while here WBC 13.04; trend while here. Does not appear toxic Await Urine culture Continue treatment for Zosyn Urine is showing gram-positive cocci will change the catheter and recheck UA and UCS Urine culture is growing Enterococcus faecalis and that is pansensitive Intravenous Zosyn has been discontinued and oral Augmentin has been started Urine looks clear Depression with anxiety: Takes Duloxetine; continue HLD: Takes Atorvastatin; continue Disposition: PCP:Dr. Askew CODE STATUS: Full code VTE prophylaxis: On Coumadin; being held due to Supratherapeutic : He is back on his Coumadin Admission and Anticipated Discharge Date Admission Date: January 13, 2023 Subjective 01/14/2023 The patient was seen and examined in medical telemetry unit He has been complaining of wheezing, shortness of breath, cough and weight gain Denies any chest pain and/or palpitation No fever and no chills Complains pain involving the neck, back and right foot 01/15/2023 The patient was seen and examined in the medical telemetry unit He has been worse today with increasing shortness of breath and cough with productive of phlegm Looks bloated Denies any fever and or chills 01/16/2023 The patient was seen and examined in medical telemetry unit He has been feeling a little better but he still has cough with wheezing and shortness of breath His legs are much improved and has chronic skin changes including the feet Review of Systems Review of Systems: All systems reviewed and are unremarkable except as noted below Physical Exam Physical Exam: Lying in bed with minimal distress Constitutional: well developed, well nourished, + ill appearing and + morbidly obese Eyes: PERRL, conjunctivae normal, anicteric sclerae ENMT: external ear and nose normal, oropharynx normal Neck: trachea midline, no thyromegaly Respiratory: normal respiratory effort, lungs clear to auscultation Cardiovascular: Rate/Rhythm: regular rate and regular rhythm; not tachycardic Heart Sounds: normal S1, normal S2 and + murmur Extremities: + edema (Chronic edema bilaterally with skin changes in the legs) Gastrointestinal (Abdomen): Inspection/Auscultation: + abdomen distended and normal bowel sounds Percussion/Palpation: abdomen soft; abdomen nontender Musculoskeletal: No acute arthritis involving any joint Neurologic: normal touch/pain/proprioception and moves all extremities; no focal motor deficits Psychiatric: A+Ox3, euthymic affect Lymphatic: no cervical or axillary lymphadenopathy Results & Data Results & Data Vital Signs (Past 12 Hours) Vital Signs Temp Pulse Pulse Resp BP BP Pulse Ox 01/16/23 11:46 01/16/23 11:23 36.3 C L 83 18 123/80 94 01/16/23 07:53 36.4 C L 72 18 177/72 H 97 01/16/23 07:47 64 01/16/23 03:00 36.5 C 67 20 116/68 96 O2 Del Method O2 Flow Rate 01/16/23 11:46 Nasal Cannula 3 01/16/23 11:23 Nasal Cannula 4 01/16/23 07:53 Nasal Cannula 5 01/16/23 07:47 01/16/23 03:00 Nasal Cannula 5 Medications Administered Current Inpatient Medications Acetaminophen (Acetaminophen 325 Mg Tab) 650 mg PO Q4H PRN PRN Reason: Pain or Fever Stop: 02/12/23 14:41 Al Hydrox/Mg Hydrox/Simethicone (Aluminum/Magnesium Susp 30 Ml Udc) 15 ml PO Q4H PRN PRN Reason: Dyspepsia Stop: 02/12/23 14:41 Albuterol (Albut/Ipratrop 3mg/0.5mg Neb 3 Ml Vial) 3 ml NEB QIDR PRN; Protocol PRN Reason: sob Stop: 02/12/23 14:59 Last Admin: 01/14/23 10:39 Dose: 3 ml Albuterol (Albuterol Hfa 8 Gm Inhaler) 2 puffs INH QID PRN PRN Reason: Shortness Of Breath Or Wheezing Stop: 02/13/23 13:37 Last Admin: 01/15/23 20:37 Dose: 2 puffs Amoxicillin/Clavulanate Potassium (Amoxicillin/Clavulanate 875 Mg Tab) 1 tab PO BID [facility]; Protocol Stop: 01/20/23 19:59 Last Admin: 01/16/23 10:42 Dose: 1 tab Aspirin (Aspirin 81 Mg Ectab) 81 mg PO QAM [facility] Stop: 02/13/23 08:59 Last Admin: 01/16/23 08:43 Dose: 81 mg Atorvastatin Calcium (Atorvastatin 40 Mg Tab) 80 mg PO QPM [facility] Stop: 02/12/23 20:59 Last Admin: 01/15/23 20:25 Dose: 80 mg Buprenorphine HCl (Buprenorphine Hcl 8 Mg Subl) 8 mg SL TID [facility] Stop: 02/13/23 14:59 Last Admin: 01/16/23 13:51 Dose: 8 mg Cyclobenzaprine HCl (Cyclobenzaprine Hcl 10 Mg Tab) 10 mg PO BID PRN PRN Reason: Muscle Spasm Stop: 02/12/23 16:06 Last Admin: 01/16/23 09:03 Dose: 10 mg Dextromethorphan Polymer Complex (Dextromethorphan Polymr Complx 60 Mg/10 Ml Udp) 60 mg PO Q12H PRN PRN Reason: Cough Stop: 02/12/23 15:56 Last Admin: 01/13/23 22:16 Dose: 60 mg Dextrose (Dextrose 50% 50 Ml Syringe) 25 - 50 ml IV UD PRN; Protocol PRN Reason: Hypoglycemia Protocol Stop: 02/12/23 15:59 Diclofenac Sodium (Diclofenac Sod 1% Gel 100 Gm Tube) 2 gm EXT BID [facility]; Protocol Stop: 02/12/23 20:59 Last Admin: 01/16/23 08:47 Dose: 2 gm Docusate Sodium (Docusate Sodium 100 Mg Cap) 100 mg PO BID [facility] Stop: 02/12/23 20:59 Last Admin: 01/16/23 08:43 Dose: 100 mg Duloxetine HCl (Duloxetine Hcl 60 Mg Cap) 60 mg PO DAILY [facility] Stop: 02/13/23 08:59 Last Admin: 01/16/23 08:43 Dose: 60 mg Famotidine (Famotidine 20 Mg Tab) 20 mg PO DAILY [facility] Stop: 02/13/23 08:59 Last Admin: 01/16/23 08:43 Dose: 20 mg Ferrous Sulfate (Ferrous Sulfate 325 Mg Tab) 325 mg PO QAM [facility] Stop: 02/13/23 08:59 Last Admin: 01/16/23 08:43 Dose: 325 mg Finasteride (Finasteride 5 Mg Tab) 5 mg PO QAM [facility] Stop: 02/13/23 08:59 Last Admin: 01/16/23 08:45 Dose: 5 mg Fluticasone Propionate (Fluticasone Propionate Na Spr 16 Gm Btl) 2 sprays NA DAILY [facility] Stop: 02/13/23 08:59 Last Admin: 01/16/23 08:47 Dose: 2 sprays Folic Acid (Folic Acid 1 Mg Tab) 1 mg PO QAM [facility] Stop: 02/13/23 08:59 Last Admin: 01/16/23 08:45 Dose: 1 mg Furosemide (Furosemide 40 Mg/4 Ml Vial) 40 mg IV Q8H [facility] Stop: 02/14/23 15:59 Last Admin: 01/16/23 08:46 Dose: 40 mg Gabapentin (Gabapentin 800 Mg Tab) 800 mg PO TID [facility] Stop: 02/12/23 20:59 Last Admin: 01/16/23 13:51 Dose: 800 mg Glucagon (Glucagon For Inj 1 Mg Vial) 1 mg SQ UD PRN; Protocol PRN Reason: Hypoglycemia Protocol Stop: 02/12/23 15:59 Glucose (Glucose 10 Tab/Tube) 4 - 8 tab PO UD PRN; Protocol PRN Reason: Hypoglycemia Treatment Stop: 02/12/23 15:59 Glucose (Glucose 40% Gel 15 Gm Tube) 15 - 30 gm PO UD PRN; Protocol PRN Reason: Hypoglycemia Protocol Stop: 02/12/23 15:59 Hydrocodone Bit/Homatropine Methylb (Hydrocodone/Homatropine Syrup 5mg/1.5mg 5ml Udp) 5 ml PO Q6H PRN PRN Reason: Cough Stop: 01/28/23 13:44 Last Admin: 01/16/23 09:04 Dose: 5 ml Hydroxyzine HCl (Hydroxyzine Hcl 25 Mg Tab) 25 mg PO QID PRN PRN Reason: Anxiety Stop: 02/12/23 16:06 Acetaminophen (Ofirmev) 1,000 mg in 100 mls @ 400 mls/hr IV Q12H [facility] Stop: 01/17/23 13:59 Last Infusion: 01/16/23 14:48 Dose: Infused Methylprednisolone 20 mg/ (Syringe) 0.32 mls @ 1.5 mls/min IV Q12H [facility] Stop: 02/15/23 01:59 Last Admin: 01/16/23 13:52 Dose: 1.5 mls/min Insulin Aspart (Insulin Aspart Per Unit Charge) 0 units SC ACHS [facility] Stop: 02/12/23 16:29 Last Admin: 01/16/23 12:27 Dose: 33 units Insulin Aspart (Insulin Aspart Per Unit Charge) 0 units SC 0200 [facility] Stop: 01/17/23 02:01 Insulin Glargine (Lantus Per Unit Charge) 0 units SQ BID [facility]; Protocol Stop: 02/15/23 08:59 Last Admin: 01/16/23 09:02 Dose: 40 units Isosorbide Mononitrate (Isosorbide Moca Extended Rel 30 Mg Tabcr) 30 mg PO DAILY [facility] Stop: 02/13/23 08:59 Last Admin: 01/16/23 08:43 Dose: 30 mg Lactic Acid (Ammonium Lactate 12% Lotion 225 Gm Btl) 1 gm EXT BID [facility] Stop: 02/15/23 11:59 Last Admin: 01/16/23 14:32 Dose: 1 gm Lactobacillus Acidophilus (Advanced Probiotic 1250 Mg Capsule) 2 cap PO DAILY [facility] Stop: 02/13/23 09:44 Last Admin: 01/16/23 08:45 Dose: 2 cap Lorazepam (Lorazepam 0.5 Mg Tab) 0.5 mg PO Q8 PRN PRN Reason: Anxiety Stop: 02/13/23 18:14 Last Admin: 01/16/23 09:03 Dose: 0.5 mg Magnesium Hydroxide (Magnesium Hydroxide Susp 30 Ml Udc) 30 ml PO Q12H PRN PRN Reason: Constipation Stop: 02/12/23 14:41 Magnesium Oxide (Magnesium Oxide 400 Mg Tab) 400 mg PO DAILY [facility] Stop: 02/13/23 08:59 Last Admin: 01/16/23 08:45 Dose: 400 mg Metoprolol Succinate (Metoprolol Succ 25mg Ext Rel Tab) 75 mg PO BID [facility] Stop: 02/12/23 20:59 Last Admin: 01/16/23 08:44 Dose: 75 mg Miconazole Nitrate (Miconazole Nitrate Powder 85 Gm) 1 appln EXT PRN PRN PRN Reason: Affected Skin Folds Stop: 02/13/23 09:45 Miscellaneous (Remove Nicoderm Patch) 1 each N/A DAILY@0859 [facility] Stop: 02/13/23 08:58 Last Admin: 01/16/23 10:57 Dose: 1 each Miscellaneous (Carbohydrates For Hypoglycemia ) 15 - 30 gm PO UD PRN PRN Reason: Hypoglycemia Protocol Stop: 02/12/23 15:59 Miscellaneous Information (Pharmacy Glycemic Mgmt Consult) 1 each N/A UD PRN PRN Reason: Consult Stop: 02/12/23 15:59 Nicotine (Nicotine 21 Mg/24 Hr Tdsy) 21 mg TD QAM [facility] Stop: 02/12/23 15:59 Last Admin: 01/16/23 08:44 Dose: 21 mg Ondansetron HCl (Ondansetron Inj 2 Mg/Ml 2 Ml Vial) 4 mg IV Q6H PRN PRN Reason: Nausea Stop: 02/12/23 14:41 Pantoprazole Sodium (Pantoprazole 40 Mg Tab) 40 mg PO DAILYBB [facility] Stop: 02/13/23 06:29 Last Admin: 01/16/23 06:34 Dose: 40 mg Polyethylene Glycol (Polyethylene (Miralax) 17 Gm Pack) 17 gm PO DAILY PRN PRN Reason: Constipation Stop: 02/12/23 14:41 Last Admin: 01/13/23 20:48 Dose: 17 gm Potassium Chloride (Potassium Chloride Crtab 20 Meq Tabcr) 40 meq PO BID [facility] Stop: 02/12/23 20:59 Last Admin: 01/16/23 08:44 Dose: 40 meq Spironolactone (Spironolactone 25 Mg Tab) 25 mg PO QAM [facility] Stop: 02/13/23 08:59 Last Admin: 01/16/23 08:43 Dose: 25 mg Tamsulosin HCl (Tamsulosin Hcl 0.4 Mg Cap) 0.8 mg PO QAM [facility] Stop: 02/13/23 08:59 Last Admin: 01/16/23 08:43 Dose: 0.8 mg Vitamin D (Cholecalciferol 5,000 Units 125 Mcg Tab) 5,000 units PO QAM [facility] Stop: 02/13/23 08:59 Last Admin: 01/16/23 08:45 Dose: 5,000 units Warfarin Sodium (Warfarin Sod 2.5 Mg Tab) 2.5 mg PO SuTuWeThSa@1600 [facility] Stop: 02/13/23 15:59 Last Admin: 01/14/23 15:48 Dose: 2.5 mg Warfarin Sodium (Warfarin Sod 5 Mg Tab) 5 mg PO MoFr@1600 [facility] Stop: 02/14/23 15:59 Last Admin: 01/15/23 16:16 Dose: 5 mg (5) Fluid overload Hypervolemia type: unspecified Qualified Code(s): E87.70 - Fluid overload, unspecified (9) COPD (chronic obstructive pulmonary disease) COPD type: unspecified COPD Qualified Code(s): J44.9 - Chronic obstructive pulmonary disease, unspecified
[2023-01-16] MEDS: WARFARIN SOD 2.5 MG TAB PO SCH (17:16)
[2023-01-16] MEDS: ATORVASTATIN 40 MG TAB PO SCH (20:22)
[2023-01-17] MEDS: FUROSEMIDE 40 MG/4 ML VIAL IV SCH ×4 (00:05→23:10)
[2023-01-17] MEDS ORDERED: INSULIN ASPART PER UNIT CHARGE SC SCH (02:00)
[2023-01-17] MEDS: ACETAMINOPHEN 1,000 MG/100 ML VIAL IV SCH (02:04)
[2023-01-17] MEDS: methylPREDNISolone 20 MG in SYRINGE 0 ML IV SCH ×2 (02:04→14:04)
[2023-01-17] MEDS: HYDROcodone/HOMATROPINE SYRUP 5MG/1.5MG 5ML UDP PO PRN ×2 (04:18→17:17)
[2023-01-17] MEDS: PANTOprazole 40 MG TAB PO SCH (06:03)
[2023-01-17 07:36] LABS: Basophils # (auto) 0.09 K/uL (0-0.2); Basophils % (auto) 0.6 %; Eosinophils # (auto) 0.01 K/uL (0-0.50); Eosinophils % (auto) 0.1 %; Hematocrit (blood only) 41.6 % (42.0-52.0); Hemoglobin 12.9 g/dl (14.0-18.0); Immature Granulocytes # (auto) 0.33 K/uL (0.01-0.20); Immature Granulocytes % (auto) 2.2 %; Lymphocytes # (auto) 2.31 K/uL (1.2-3.4); Lymphocytes % (auto) 15.7 %; Mean Corpuscular Hemoglobin 27.2 pg (25.0-34.0); Mean Corpuscular Volume 87.8 fL (80.0-100.0); Mean Platelet Volume 10.1 fL (9.4-12.4); Monocytes # (auto) 0.81 K/uL (0.11-0.59); Monocytes % (auto) 5.5 %; Neutrophils # (auto) 11.21 K/uL (1.40-6.50); Neutrophils % (auto) 75.9 %; Platelet Count 245 K/uL (130-400); RDW Coefficient of Variation 18.6 % (11.5-14.5); Red Blood Count 4.74 M/uL (4.70-6.10); White Blood Count 14.76 K/ul (4.8-10.8)
[2023-01-17 07:42] LABS: BUN Creatinine Ratio 28.4 (10-20); Calcium 9.7 mg/dl (8.6-10.3); Creatinine Clr Calc Pharmacy 167.4 ml/min; Est GFR (African American) 106.2 ml/min; Est GFR (Non-African American) 91.7 ml/min; Potassium 4.9 mmol/L (3.5-5.1)
[2023-01-17 07:52] LABS: INR 2.7 (0.9-1.1)
[2023-01-17] MEDS: buprenorphine HCL 8 MG SUBL SL SCH ×3 (08:06→21:06)
[2023-01-17] MEDS: LORazepam 0.5 MG TAB PO PRN ×2 (08:07→21:24)
[2023-01-17] MEDS: DOCUSATE SODIUM 100 MG CAP PO SCH ×2 (08:07→21:07)
[2023-01-17] MEDS: LANTUS PER UNIT CHARGE SQ SCH ×2 (08:07→21:07)
[2023-01-17] MEDS: CYCLOBENZAPRINE HCL 10 MG TAB PO PRN ×2 (08:07→21:24)
[2023-01-17] MEDS: INSULIN ASPART PER UNIT CHARGE SC SCH ×4 (08:07→21:08)
[2023-01-17] MEDS: AMMONIUM LACTATE 12% LOTION 225 GM BTL EXT SCH ×2 (08:08→21:05)
[2023-01-17] MEDS: NICOTINE 21 MG/24 HR TDSY TD SCH (08:08)
[2023-01-17] MEDS: DICLOFENAC SOD 1% GEL 100 GM TUBE EXT SCH ×2 (08:08→21:07)
[2023-01-17] MEDS: AMOXICILLIN/CLAVULANATE 875 MG TAB PO SCH ×2 (08:09→21:06)
[2023-01-17] MEDS: SPIRONOLACTONE 25 MG TAB PO SCH (08:09)
[2023-01-17] MEDS: METOPROLOL SUCC 25MG EXT REL TAB PO SCH ×2 (08:09→21:08)
[2023-01-17] MEDS: FOLIC ACID 1 MG TAB PO SCH (08:09)
[2023-01-17] MEDS: FINASTERIDE 5 MG TAB PO SCH (08:09)
[2023-01-17] MEDS: ADVANCED PROBIOTIC 1250 MG CAPSULE PO SCH (08:09)
[2023-01-17] MEDS: GABAPENTIN 800 MG TAB PO SCH ×3 (08:09→21:07)
[2023-01-17] MEDS: CHOLECALCIFEROL 5,000 UNITS 125 MCG TAB PO SCH (08:09)
[2023-01-17] MEDS: MAGNESIUM OXIDE 400 MG TAB PO SCH (08:09)
[2023-01-17] MEDS: ASPIRIN 81 MG ECTAB PO SCH (08:09)
[2023-01-17] MEDS: TAMSULOSIN HCL 0.4 MG CAP PO SCH (08:10)
[2023-01-17] MEDS: ISOSORBIDE MONO EXTENDED REL 30 MG TABCR PO SCH (08:10)
[2023-01-17] MEDS: POTASSIUM CHLORIDE CRTAB 20 MEQ TABCR PO SCH ×2 (08:10→21:09)
[2023-01-17] MEDS: FAMOTIDINE 20 MG TAB PO SCH (08:10)
[2023-01-17] MEDS: DULoxetine HCL 60 MG CAP PO SCH (08:10)
[2023-01-17] MEDS: FLUTICASONE PROPIONATE NA SPR 16 GM BTL SCH (08:10)
[2023-01-17] MEDS: FERROUS SULFATE 325 MG TAB PO SCH (08:10)
--- NOTE | 2023-01-17 13:33 | Hospitalist Progress Note ---
Date of Service January 17, 2023 Assessment & Plan (1) Acute on chronic heart failure with preserved ejection fraction: Plan: Has been diuresing enough and will continue to diurese until kidney function is holding Continue Lasix IV 3 times a day as of today (2) Hypoxia: Plan: Hypoxia has been improving and he requires 3 L of oxygen to maintain saturation now Still has wheezing (3) Hypomagnesemia: (4) 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: Plan: Blood sugar seems to be on the upper side of normal (5) Fluid overload: Plan: Has been diuresing enough Has been diuresing enough and also drinking more than prescribed amount of fluid (6) BPH (benign prostatic hyperplasia): (7) Indwelling Fontaine catheter present: (8) Depression with anxiety: (9) COPD (chronic obstructive pulmonary disease): Plan 52 year old presents with HFpEF and COPD exacerbation with hypoxia. Patient supratherapeutic INR 3.6; will hold Coumadin and reassess, Diabetes with insulin dependence. Will diurese and add additional Prednisone and supportive treatment with nebs and Delsym. acute on chronic heart failure with preserved ejection fraction: Fluid overload: Hypoxia: Given 40 mg Lasix in ED; continue 40 mg IV BID Takes 40 mg PO daily at home; possible noncompliance Most recent Echo 12/10/22: EF 55-60%, Mild concentric LVH, RV dilation. Strict I/O 1800mL Continue Spirinolactone with KCL replacements as he takes at home CXR negative-mild congestive changes Daily weights Has been getting Lasix 40 mg IV twice daily Monitor intake output and PRP We will increase the Lasix to 40 mg IV every 8 hourly Still looks bloated and has an negative balance of 489 2 mL We will continue Lasix 40 mg 3 times a day-creatinine and electrolytes will be monitored We will check PRP tomorrow to decide the dosing of Lasix COPD: Likely has exacerbation Tobacco Use: Chronic cough with acute exacerbation Takes Prednisone 10 mg PO daily; will start Prednisone 40 mg PO daily Will give Hycodan PRN and Nebs PRN Smoking cessation encouraged Nicotine patch ordered Wears 3 LNC QHS but has been requiring 6 L/min now Will DC prednisone and give Solu-Medrol 40 mg twice daily for now Solu-Medrol will be decreased to 20 mg IV twice daily Augmentin has been added to cover UTI and respiratory pathogens Clinically better and will continue current regimen Still has wheezing but saturating on 5 L now Chronic Anticoagulation: Supratherapeutic: Takes Coumadin 2.5 on and , 5 mg all other days Compliant with Coumadin clinic Last night INR 3.1; did not take Coumadin In ED INR 3.6; will hold Coumadin tonight and recheck in AM We will continue Coumadin Hypomagnesia: Mg+ 1.5; replace with 2G Magnesium; trend Mg+ in AM Type 2 diabetes with insulin deficiency: Takes Lantus 100 Units QHS and Glipizide; hold Place on ACHS FSBS SSI Glycemic Pharmacy consultation BPH: Indwelling Fontaine catheter, chronic::: UTI due to indwelling Fontaine catheter-Enterococcus faecalis--pansensitive except tetracycline UA appears infected however has chronically dirty appearing urine Last admission: Urology consutlation and his urine culture at that time grew lactobacillus indwelling fontaine catheter in place ; Change out fontaine while here WBC 13.04; trend while here. Does not appear toxic Await Urine culture Continue treatment for Zosyn Urine is showing gram-positive cocci will change the catheter and recheck UA and UCS Urine culture is growing Enterococcus faecalis and that is pansensitive Intravenous Zosyn has been discontinued and oral Augmentin has been started Urine looks clear Depression with anxiety: Takes Duloxetine; continue HLD: Takes Atorvastatin; continue Disposition: PCP:Dr. Askew CODE STATUS: Full code VTE prophylaxis: On Coumadin; being held due to Supratherapeutic : He is back on his Coumadin Admission and Anticipated Discharge Date Admission Date: January 13, 2023 Subjective 01/14/2023 The patient was seen and examined in medical telemetry unit He has been complaining of wheezing, shortness of breath, cough and weight gain Denies any chest pain and/or palpitation No fever and no chills Complains pain involving the neck, back and right foot 01/15/2023 The patient was seen and examined in the medical telemetry unit He has been worse today with increasing shortness of breath and cough with productive of phlegm Looks bloated Denies any fever and or chills 01/16/2023 The patient was seen and examined in medical telemetry unit He has been feeling a little better but he still has cough with wheezing and shortness of breath His legs are much improved and has chronic skin changes including the feet 01/17/2023 The patient was seen and examined in medical telemetry unit He complains of ongoing cough and wheezing and has not been feeling well His legs are way down and he has been having much diuresis We will get PT and OT evaluation Review of Systems Review of Systems: All systems reviewed and are unremarkable except as noted below Physical Exam Physical Exam: Lying in bed with minimal distress Constitutional: well developed, well nourished, + ill appearing and + morbidly obese Eyes: PERRL, conjunctivae normal, anicteric sclerae ENMT: external ear and nose normal, oropharynx normal Neck: trachea midline, no thyromegaly Respiratory: no respiratory distress Auscultation: + diminished lung sounds, + crackles and + wheezes Cardiovascular: Rate/Rhythm: regular rate and regular rhythm; not tachycardic Heart Sounds: normal S1, normal S2 and + murmur Extremities: + edema (Chronic edema bilaterally with skin changes in the legs) Gastrointestinal (Abdomen): Inspection/Auscultation: + abdomen distended and normal bowel sounds Percussion/Palpation: abdomen soft; abdomen nontender Musculoskeletal: No acute arthritis involving any joint Neurologic: normal touch/pain/proprioception and moves all extremities; no focal motor deficits Psychiatric: A+Ox3, euthymic affect Lymphatic: no cervical or axillary lymphadenopathy Results & Data Results & Data Vital Signs (Past 12 Hours) Vital Signs Temp Pulse Pulse Resp BP BP Pulse Ox 01/17/23 11:58 36.9 C 77 18 145/72 H 93 01/17/23 08:54 01/17/23 08:33 64 01/17/23 08:06 36.4 C L 85 18 152/74 H 96 01/17/23 04:00 36.6 C 68 20 138/92 99 O2 Del Method O2 Flow Rate 01/17/23 11:58 Room Air 01/17/23 08:54 Nasal Cannula 4 01/17/23 08:33 01/17/23 08:06 Nasal Cannula 5 01/17/23 04:00 Room Air Medications Administered Current Inpatient Medications Acetaminophen (Acetaminophen 325 Mg Tab) 650 mg PO Q4H PRN PRN Reason: Pain or Fever Stop: 02/12/23 14:41 Al Hydrox/Mg Hydrox/Simethicone (Aluminum/Magnesium Susp 30 Ml Udc) 15 ml PO Q4H PRN PRN Reason: Dyspepsia Stop: 02/12/23 14:41 Albuterol (Albut/Ipratrop 3mg/0.5mg Neb 3 Ml Vial) 3 ml NEB QIDR PRN; Protocol PRN Reason: sob Stop: 02/12/23 14:59 Last Admin: 01/14/23 10:39 Dose: 3 ml Albuterol (Albuterol Hfa 8 Gm Inhaler) 2 puffs INH QID PRN PRN Reason: Shortness Of Breath Or Wheezing Stop: 02/13/23 13:37 Last Admin: 01/15/23 20:37 Dose: 2 puffs Amoxicillin/Clavulanate Potassium (Amoxicillin/Clavulanate 875 Mg Tab) 1 tab PO BID [facility]; Protocol Stop: 01/20/23 19:59 Last Admin: 01/17/23 08:09 Dose: 1 tab Aspirin (Aspirin 81 Mg Ectab) 81 mg PO QAM [facility] Stop: 02/13/23 08:59 Last Admin: 01/17/23 08:09 Dose: 81 mg Atorvastatin Calcium (Atorvastatin 40 Mg Tab) 80 mg PO QPM [facility] Stop: 02/12/23 20:59 Last Admin: 01/16/23 20:22 Dose: 80 mg Buprenorphine HCl (Buprenorphine Hcl 8 Mg Subl) 8 mg SL TID [facility] Stop: 02/13/23 14:59 Last Admin: 01/17/23 08:06 Dose: 8 mg Cyclobenzaprine HCl (Cyclobenzaprine Hcl 10 Mg Tab) 10 mg PO BID PRN PRN Reason: Muscle Spasm Stop: 02/12/23 16:06 Last Admin: 01/17/23 08:07 Dose: 10 mg Dextromethorphan Polymer Complex (Dextromethorphan Polymr Complx 60 Mg/10 Ml Udp) 60 mg PO Q12H PRN PRN Reason: Cough Stop: 02/12/23 15:56 Last Admin: 01/13/23 22:16 Dose: 60 mg Dextrose (Dextrose 50% 50 Ml Syringe) 25 - 50 ml IV UD PRN; Protocol PRN Reason: Hypoglycemia Protocol Stop: 02/12/23 15:59 Diclofenac Sodium (Diclofenac Sod 1% Gel 100 Gm Tube) 2 gm EXT BID [facility]; Protocol Stop: 02/12/23 20:59 Last Admin: 01/17/23 08:08 Dose: 2 gm Docusate Sodium (Docusate Sodium 100 Mg Cap) 100 mg PO BID [facility] Stop: 02/12/23 20:59 Last Admin: 01/17/23 08:07 Dose: 100 mg Duloxetine HCl (Duloxetine Hcl 60 Mg Cap) 60 mg PO DAILY [facility] Stop: 02/13/23 08:59 Last Admin: 01/17/23 08:10 Dose: 60 mg Famotidine (Famotidine 20 Mg Tab) 20 mg PO DAILY [facility] Stop: 02/13/23 08:59 Last Admin: 01/17/23 08:10 Dose: 20 mg Ferrous Sulfate (Ferrous Sulfate 325 Mg Tab) 325 mg PO QAM [facility] Stop: 02/13/23 08:59 Last Admin: 01/17/23 08:10 Dose: 325 mg Finasteride (Finasteride 5 Mg Tab) 5 mg PO QAM [facility] Stop: 02/13/23 08:59 Last Admin: 01/17/23 08:09 Dose: 5 mg Fluticasone Propionate (Fluticasone Propionate Na Spr 16 Gm Btl) 2 sprays NA DAILY [facility] Stop: 02/13/23 08:59 Last Admin: 01/17/23 08:10 Dose: 2 sprays Folic Acid (Folic Acid 1 Mg Tab) 1 mg PO QAM [facility] Stop: 02/13/23 08:59 Last Admin: 01/17/23 08:09 Dose: 1 mg Furosemide (Furosemide 40 Mg/4 Ml Vial) 40 mg IV Q8H [facility] Stop: 02/14/23 15:59 Last Admin: 01/17/23 08:06 Dose: 40 mg Gabapentin (Gabapentin 800 Mg Tab) 800 mg PO TID [facility] Stop: 02/12/23 20:59 Last Admin: 01/17/23 08:09 Dose: 800 mg Glucagon (Glucagon For Inj 1 Mg Vial) 1 mg SQ UD PRN; Protocol PRN Reason: Hypoglycemia Protocol Stop: 02/12/23 15:59 Glucose (Glucose 10 Tab/Tube) 4 - 8 tab PO UD PRN; Protocol PRN Reason: Hypoglycemia Treatment Stop: 02/12/23 15:59 Glucose (Glucose 40% Gel 15 Gm Tube) 15 - 30 gm PO UD PRN; Protocol PRN Reason: Hypoglycemia Protocol Stop: 02/12/23 15:59 Hydrocodone Bit/Homatropine Methylb (Hydrocodone/Homatropine Syrup 5mg/1.5mg 5ml Udp) 5 ml PO Q6H PRN PRN Reason: Cough Stop: 01/28/23 13:44 Last Admin: 01/17/23 04:18 Dose: 5 ml Hydroxyzine HCl (Hydroxyzine Hcl 25 Mg Tab) 25 mg PO QID PRN PRN Reason: Anxiety Stop: 02/12/23 16:06 Acetaminophen (Ofirmev) 1,000 mg in 100 mls @ 400 mls/hr IV Q12H [facility] Stop: 01/17/23 13:59 Last Infusion: 01/17/23 03:23 Dose: Infused Methylprednisolone 20 mg/ (Syringe) 0.32 mls @ 1.5 mls/min IV Q12H [facility] Stop: 02/15/23 01:59 Last Admin: 01/17/23 02:04 Dose: 1.5 mls/min Insulin Aspart (Insulin Aspart Per Unit Charge) 0 units SC ACHS [facility] Stop: 02/12/23 16:29 Last Admin: 01/17/23 11:57 Dose: 48 units Insulin Glargine (Lantus Per Unit Charge) 0 units SQ BID [facility]; Protocol Stop: 02/15/23 08:59 Last Admin: 01/17/23 08:07 Dose: 50 units Isosorbide Mononitrate (Isosorbide Chaves Extended Rel 30 Mg Tabcr) 30 mg PO DAILY [facility] Stop: 02/13/23 08:59 Last Admin: 01/17/23 08:10 Dose: 30 mg Lactic Acid (Ammonium Lactate 12% Lotion 225 Gm Btl) 1 gm EXT BID [facility] Stop: 02/15/23 11:59 Last Admin: 01/17/23 08:08 Dose: 1 gm Lactobacillus Acidophilus (Advanced Probiotic 1250 Mg Capsule) 2 cap PO DAILY [facility] Stop: 02/13/23 09:44 Last Admin: 01/17/23 08:09 Dose: 2 cap Lorazepam (Lorazepam 0.5 Mg Tab) 0.5 mg PO Q8 PRN PRN Reason: Anxiety Stop: 02/13/23 18:14 Last Admin: 01/17/23 08:07 Dose: 0.5 mg Magnesium Hydroxide (Magnesium Hydroxide Susp 30 Ml Udc) 30 ml PO Q12H PRN PRN Reason: Constipation Stop: 02/12/23 14:41 Magnesium Oxide (Magnesium Oxide 400 Mg Tab) 400 mg PO DAILY [facility] Stop: 02/13/23 08:59 Last Admin: 01/17/23 08:09 Dose: 400 mg Metoprolol Succinate (Metoprolol Succ 25mg Ext Rel Tab) 75 mg PO BID [facility] Stop: 02/12/23 20:59 Last Admin: 01/17/23 08:09 Dose: 75 mg Miconazole Nitrate (Miconazole Nitrate Powder 85 Gm) 1 appln EXT PRN PRN PRN Reason: Affected Skin Folds Stop: 02/13/23 09:45 Miscellaneous (Remove Nicoderm Patch) 1 each N/A DAILY@0859 [facility] Stop: 02/13/23 08:58 Last Admin: 01/17/23 08:10 Dose: 1 each Miscellaneous (Carbohydrates For Hypoglycemia ) 15 - 30 gm PO UD PRN PRN Reason: Hypoglycemia Protocol Stop: 02/12/23 15:59 Miscellaneous Information (Pharmacy Glycemic Mgmt Consult) 1 each N/A UD PRN PRN Reason: Consult Stop: 02/12/23 15:59 Nicotine (Nicotine 21 Mg/24 Hr Tdsy) 21 mg TD QAM [facility] Stop: 02/12/23 15:59 Last Admin: 01/17/23 08:08 Dose: 21 mg Ondansetron HCl (Ondansetron Inj 2 Mg/Ml 2 Ml Vial) 4 mg IV Q6H PRN PRN Reason: Nausea Stop: 02/12/23 14:41 Pantoprazole Sodium (Pantoprazole 40 Mg Tab) 40 mg PO DAILYBB [facility] Stop: 02/13/23 06:29 Last Admin: 01/17/23 06:03 Dose: 40 mg Polyethylene Glycol (Polyethylene (Miralax) 17 Gm Pack) 17 gm PO DAILY PRN PRN Reason: Constipation Stop: 02/12/23 14:41 Last Admin: 01/13/23 20:48 Dose: 17 gm Potassium Chloride (Potassium Chloride Crtab 20 Meq Tabcr) 40 meq PO BID [facility] Stop: 02/12/23 20:59 Last Admin: 01/17/23 08:10 Dose: 40 meq Spironolactone (Spironolactone 25 Mg Tab) 25 mg PO QAM [facility] Stop: 02/13/23 08:59 Last Admin: 01/17/23 08:09 Dose: 25 mg Tamsulosin HCl (Tamsulosin Hcl 0.4 Mg Cap) 0.8 mg PO QAM [facility] Stop: 02/13/23 08:59 Last Admin: 01/17/23 08:10 Dose: 0.8 mg Vitamin D (Cholecalciferol 5,000 Units 125 Mcg Tab) 5,000 [facility] Stop: 02/13/23 08:59 Last Admin: 01/17/23 08:09 Dose: 5,000 units Warfarin Sodium (Warfarin Sod 2.5 Mg Tab) 2.5 mg PO [id number]@1600 [facility] Stop: 02/13/23 15:59 Last Admin: 01/16/23 17:16 Dose: 2.5 mg Warfarin Sodium (Warfarin Sod 5 Mg Tab) 5 mg PO [id number] [facility] Stop: 02/14/23 15:59 Last Admin: 01/15/23 16:16 Dose: 5 mg (5) Fluid overload Hypervolemia type: unspecified Qualified Code(s): E87.70 - Fluid overload, unspecified (9) COPD (chronic obstructive pulmonary disease) COPD type: unspecified COPD Qualified Code(s): J44.9 - Chronic obstructive pulmonary disease, unspecified
[2023-01-17] MEDS: WARFARIN SOD 2.5 MG TAB PO SCH (16:40)
[2023-01-17] MEDS: ALBUTEROL HFA 8 GM INHALER INH PRN (19:46)
[2023-01-17] MEDS ORDERED: ACETAMINOPHEN 1,000 MG/100 ML VIAL IV STA (19:56)
[2023-01-17] MEDS: ATORVASTATIN 40 MG TAB PO SCH (21:06)
[2023-01-17] MEDS: ALBUT/IPRATROP 3MG/0.5MG NEB 3 ML VIAL NEB PRN (21:35)
[2023-01-18] MEDS: methylPREDNISolone 20 MG in SYRINGE 0 ML IV SCH ×2 (02:24→13:09)
[2023-01-18] MEDS: PANTOprazole 40 MG TAB PO SCH (06:21)
[2023-01-18] MEDS: AMOXICILLIN/CLAVULANATE 875 MG TAB PO SCH ×2 (07:26→21:16)
[2023-01-18] MEDS: POTASSIUM CHLORIDE CRTAB 20 MEQ TABCR PO SCH ×2 (07:26→21:14)
[2023-01-18] MEDS: GABAPENTIN 800 MG TAB PO SCH ×3 (07:26→21:15)
[2023-01-18] MEDS: METOPROLOL SUCC 25MG EXT REL TAB PO SCH ×2 (07:26→21:14)
[2023-01-18] MEDS: FERROUS SULFATE 325 MG TAB PO SCH (07:27)
[2023-01-18] MEDS: FINASTERIDE 5 MG TAB PO SCH (07:27)
[2023-01-18] MEDS: FAMOTIDINE 20 MG TAB PO SCH (07:27)
[2023-01-18] MEDS: ADVANCED PROBIOTIC 1250 MG CAPSULE PO SCH (07:28)
[2023-01-18] MEDS: ASPIRIN 81 MG ECTAB PO SCH (07:28)
[2023-01-18] MEDS: MAGNESIUM OXIDE 400 MG TAB PO SCH (07:28)
[2023-01-18] MEDS: FOLIC ACID 1 MG TAB PO SCH (07:28)
[2023-01-18] MEDS: CHOLECALCIFEROL 5,000 UNITS 125 MCG TAB PO SCH (07:29)
[2023-01-18] MEDS: NICOTINE 21 MG/24 HR TDSY TD SCH (07:29)
[2023-01-18] MEDS: ISOSORBIDE MONO EXTENDED REL 30 MG TABCR PO SCH (07:29)
[2023-01-18] MEDS: TAMSULOSIN HCL 0.4 MG CAP PO SCH (07:30)
[2023-01-18] MEDS: SPIRONOLACTONE 25 MG TAB PO SCH (07:30)
[2023-01-18] MEDS: DULoxetine HCL 60 MG CAP PO SCH (07:30)
[2023-01-18] MEDS: FUROSEMIDE 40 MG/4 ML VIAL IV SCH ×2 (07:30→16:46)
[2023-01-18] MEDS: AMMONIUM LACTATE 12% LOTION 225 GM BTL EXT SCH ×2 (07:30→21:13)
[2023-01-18] MEDS: DOCUSATE SODIUM 100 MG CAP PO SCH ×2 (07:31→21:15)
[2023-01-18] MEDS: FLUTICASONE PROPIONATE NA SPR 16 GM BTL SCH (07:31)
[2023-01-18] MEDS: DICLOFENAC SOD 1% GEL 100 GM TUBE EXT SCH ×2 (07:31→21:13)
[2023-01-18] MEDS: buprenorphine HCL 8 MG SUBL SL SCH ×3 (07:39→21:11)
[2023-01-18] MEDS: CYCLOBENZAPRINE HCL 10 MG TAB PO PRN ×2 (07:41→21:11)
[2023-01-18] MEDS: LORazepam 0.5 MG TAB PO PRN ×2 (07:41→21:11)
[2023-01-18 07:51] LABS: Basophils # (auto) 0.11 K/uL (0-0.2); Basophils % (auto) 0.6 %; Eosinophils # (auto) 0.03 K/uL (0-0.50); Eosinophils % (auto) 0.2 %; Hematocrit (blood only) 41.2 % (42.0-52.0); Hemoglobin 13.3 g/dl (14.0-18.0); Immature Granulocytes # (auto) 0.45 K/uL (0.01-0.20); Immature Granulocytes % (auto) 2.5 %; Lymphocytes # (auto) 2.67 K/uL (1.2-3.4); Lymphocytes % (auto) 14.9 %; Mean Corpuscular Hemoglobin 27.5 pg (25.0-34.0); Mean Corpuscular Hgb Conc 32.3 g/dL (32.0-36.0); Mean Corpuscular Volume 85.1 fL (80.0-100.0); Mean Platelet Volume 10.1 fL (9.4-12.4); Monocytes # (auto) 0.87 K/uL (0.11-0.59); Monocytes % (auto) 4.9 %; Neutrophils # (auto) 13.79 K/uL (1.40-6.50); Neutrophils % (auto) 76.9 %; Platelet Count 255 K/uL (130-400); RDW Coefficient of Variation 18.5 % (11.5-14.5); RDW Standard Deviation 56.6 fL (36.4-46.3); Red Blood Count 4.84 M/uL (4.70-6.10); White Blood Count 17.92 K/ul (4.8-10.8)
[2023-01-18] MEDS: INSULIN ASPART PER UNIT CHARGE SC SCH ×4 (07:52→21:06)
[2023-01-18] MEDS: LANTUS PER UNIT CHARGE SQ SCH ×2 (07:52→21:06)
[2023-01-18 08:14] LABS: BUN Creatinine Ratio 33.3 (10-20); Calcium 10.1 mg/dl (8.6-10.3); Creatinine Clr Calc Pharmacy 171.1 ml/min; Est GFR (Non-African American) 94.1 ml/min; Potassium 4.8 mmol/L (3.5-5.1)
[2023-01-18 08:23] LABS: INR 2.1 (0.9-1.1); Prothrombin Time 22.2 Seconds (9.0-12.0)
[2023-01-18] MEDS: ACETAMINOPHEN 1,000 MG/100 ML VIAL IV SCH ×2 (09:01→21:07)
--- NOTE | 2023-01-18 10:29 | Pharmacy Report ---
Pharmacy Glycemic Short Note 2 - Date of Service January 18, 2023 - Glycemic Short BSG Results (Last 24 hours): 01/17/23 01/17/23 01/17/23 11:36 11:37 14:03 Glucose POC Glucose 315 H* 340 H* 250 H 01/17/23 01/17/23 01/18/23 16:47 20:44 07:11 Glucose 176 H POC Glucose 146 H 174 H 01/18/23 07:44 Glucose POC Glucose 149 H OUTPATIENT ANTIDIABETIC REGIMEN: * Lantus 50 units HS * Glipizide 10mg PO BID * Novolog -- generally uses a sliding scale while taking steroids (unsure of the details) * HbA1c: 8% (12/18/22) ASSESSMENT: 01/18/23: * BSGs have been fairly labile, as in previous admissions. * Per RN reports, pt has been eating pudding(s) in between meals. * Pt remains on IV SoluMedrol 20mg IV q12h, which is certainly contributing to hyperglycemia. * Pharmacy will continue to follow. 01/15 * BSG's throughout the day yesterday [phone] mg/dL. * Fasting BSG today 241 mg/dL. Administered 10 additional units at breakfast (total of 50 units Lantus given), aiming to increase TDD by no more than 20% by allowing evening dose to be given per scale. * Lunchtime BSG elevated today at 233 mg/dL, however patient has been noted to be higher at lunchtime. Tightening of NovoLog parameters limited by lower dinnertime BSG yesterday. Continue to trend and adjust as indicated. 01/14 * 52 year old admitted with shortness of breath. Pharmacy consulted for glycemic management. * Patient known to glycemic service as previously admitted earlier this month. At that time had also been on prednisone 40 mg daily and daily insulin requirements were closer to ~175 units per day PLAN FOR INPATIENT GLYCEMIC CONTROL: * Hold outpatient oral diabetes medications * Basal insulin * Lantus 30-50 units SQ BID, see EMR for details * Bolus insulin * NovoLog per scale ACHS or Q6hrs while NPO * Goal Range: Low 110 mg/dL - High 140 mg/dL * Correction Factor: 6 mg/dL/unit * Nutritional / Prandial insulin per carb ratio of 1 unit per 2.5 grams CHO consumed
[2023-01-18] MEDS: HYDROcodone/HOMATROPINE SYRUP 5MG/1.5MG 5ML UDP PO PRN ×2 (13:09→19:21)
--- NOTE | 2023-01-18 15:48 | Hospitalist Progress Note ---
Date of Service January 18, 2023 Assessment & Plan (1) Acute on chronic heart failure with preserved ejection fraction: Plan: Has been diuresing enough and will continue to diurese until kidney function is holding Continue Lasix IV 3 times a day as of today Has had negative balance of 14,000mls since admission (2) Hypoxia: Plan: Hypoxia has been improving and he requires 3 L of oxygen to maintain saturation now Still has wheezing-has been communicating normally without any problem (3) Hypomagnesemia: (4) 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: Plan: Blood sugar seems to be on the upper side of normal (5) Fluid overload: Plan: Has been diuresing enough Has been diuresing enough and also drinking more than prescribed amount of fluid (6) BPH (benign prostatic hyperplasia): (7) Indwelling Fontaine catheter present: (8) Depression with anxiety: (9) COPD (chronic obstructive pulmonary disease): Plan: Minimal wheezing Plan 52 year old presents with HFpEF and COPD exacerbation with hypoxia. Patient supratherapeutic INR 3.6; will hold Coumadin and reassess, Diabetes with insulin dependence. Will diurese and add additional Prednisone and supportive treatment with nebs and Delsym. acute on chronic heart failure with preserved ejection fraction: Fluid overload: Hypoxia: Given 40 mg Lasix in ED; continue 40 mg IV BID Takes 40 mg PO daily at home; possible noncompliance Most recent Echo 12/10/22: EF 55-60%, Mild concentric LVH, RV dilation. Strict I/O 1800mL Continue Spirinolactone with KCL replacements as he takes at home CXR negative-mild congestive changes Daily weights Has been getting Lasix 40 mg IV twice daily Monitor intake output and PRP We will increase the Lasix to 40 mg IV every 8 hourly Still looks bloated and has an negative balance of 489 2 mL We will continue Lasix 40 mg 3 times a day-creatinine and electrolytes will be monitored We will check PRP tomorrow to decide the dosing of Lasix Kidney function remains stable-saturating normally on 4 L of nasal cannula oxygen COPD: Likely has exacerbation Tobacco Use: Chronic cough with acute exacerbation Takes Prednisone 10 mg PO daily; will start Prednisone 40 mg PO daily Will give Hycodan PRN and Nebs PRN Smoking cessation encouraged Nicotine patch ordered Wears 3 LNC QHS but has been requiring 6 L/min now Will DC prednisone and give Solu-Medrol 40 mg twice daily for now Solu-Medrol will be decreased to 20 mg IV twice daily Augmentin has been added to cover UTI and respiratory pathogens Clinically better and will continue current regimen Still has wheezing but saturating on 5 L now 4 L today to maintain saturation Chronic Anticoagulation: Supratherapeutic: Takes Coumadin 2.5 on and , 5 mg all other days Compliant with Coumadin clinic Last night INR 3.1; did not take Coumadin In ED INR 3.6; will hold Coumadin tonight and recheck in AM We will continue Coumadin-INR is 2.1 as of 01/18/2023 Hypomagnesia: Mg+ 1.5; replace with 2G Magnesium; trend Mg+ in AM Type 2 diabetes with insulin deficiency: Takes Lantus 100 Units QHS and Glipizide; hold Place on ACHS FSBS SSI Glycemic Pharmacy consultation BPH: Indwelling Fontaine catheter, chronic::: UTI due to indwelling Fontaine catheter-Enterococcus faecalis--pansensitive except tetracycline UA appears infected however has chronically dirty appearing urine Last admission: Urology consutlation and his urine culture at that time grew lactobacillus indwelling fontaine catheter in place ; Change out fontaine while here WBC 13.04; trend while here. Does not appear toxic Await Urine culture Continue treatment for Zosyn Urine is showing gram-positive cocci will change the catheter and recheck UA and UCS Urine culture is growing Enterococcus faecalis and that is pansensitive Intravenous Zosyn has been discontinued and oral Augmentin has been started Urine looks clear Depression with anxiety: Takes Duloxetine; continue HLD: Takes Atorvastatin; continue Disposition: PCP:Dr. Askew CODE STATUS: Full code VTE prophylaxis: On Coumadin; being held due to Supratherapeutic : He is back on his Coumadin Likely discharge tomorrow Admission and Anticipated Discharge Date Admission Date: January 13, 2023 Subjective 01/14/2023 The patient was seen and examined in medical telemetry unit He has been complaining of wheezing, shortness of breath, cough and weight gain Denies any chest pain and/or palpitation No fever and no chills Complains pain involving the neck, back and right foot 01/15/2023 The patient was seen and examined in the medical telemetry unit He has been worse today with increasing shortness of breath and cough with productive of phlegm Looks bloated Denies any fever and or chills 01/16/2023 The patient was seen and examined in medical telemetry unit He has been feeling a little better but he still has cough with wheezing and shortness of breath His legs are much improved and has chronic skin changes including the feet 01/17/2023 The patient was seen and examined in medical telemetry unit He complains of ongoing cough and wheezing and has not been feeling well His legs are way down and he has been having much diuresis We will get PT and OT evaluation 01/18/2023 The patient was seen and examined in medical telemetry unit He complains to have more shortness of breath and wheezing Denies any other symptoms He has a physical therapy and recommended home Review of Systems Review of Systems: All systems reviewed and are unremarkable except as noted below Physical Exam Physical Exam: Lying in bed with minimal distress Constitutional: well developed, well nourished, + ill appearing and + morbidly obese Eyes: PERRL, conjunctivae normal, anicteric sclerae ENMT: external ear and nose normal, oropharynx normal Neck: trachea midline, no thyromegaly Respiratory: normal respiratory effort, lungs clear to auscultation no respiratory distress Auscultation: + diminished lung sounds, + crackles and + wheezes Cardiovascular: Rate/Rhythm: regular rate and regular rhythm; not tachycardic Heart Sounds: normal S1, normal S2 and + murmur Extremities: + edema (Chr onic edema bilaterally with skin changes in the legs) Gastrointestinal (Abdomen): Inspection/Auscultation: + abdomen distended and normal bowel sounds Percussion/Palpation: abdomen soft; abdomen nontender Neurologic: normal touch/pain/proprioception and moves all extremities; no focal motor deficits Psychiatric: A+Ox3, euthymic affect Lymphatic: no cervical or axillary lymphadenopathy Results & Data Results & Data Vital Signs (Past 12 Hours) Vital Signs Temp Pulse Pulse Resp BP Pulse Ox Pulse Ox 01/18/23 15:40 36.7 C 78 20 145/68 H 98 01/18/23 15:39 77 01/18/23 12:45 96 01/18/23 11:57 36.5 C 81 18 153/77 H 98 01/18/23 11:39 97 01/18/23 09:48 01/18/23 09:21 62 01/18/23 06:46 37.0 C 68 16 133/75 96 Pulse Ox O2 Del Method O2 Flow Rate O2 Flow Rate O2 Flow Rate 01/18/23 15:40 Nasal Cannula 4 01/18/23 15:39 01/18/23 12:45 98 2 2 01/18/23 11:57 Nasal Cannula 2 01/18/23 11:39 01/18/23 09:48 Nasal Cannula 3 01/18/23 09:21 01/18/23 06:46 Nasal Cannula 2 Laboratory Results Short CBC 01/18/23 Range/Units 07:11 WBC 17.92 H (4.8-10.8) K/ul Hgb 13.3 L (14.0-18.0) g/dl Hct 41.2 L (42.0-52.0) % Plt Count 255 (130-400) K/uL BMP 01/18/23 07:11 Sodium 140 Potassium 4.8 Chloride 99 Carbon Dioxide 38 H BUN 31 H Creatinine 0.93 Glucose 176 H Calcium 10.1 Medications Administered Current Inpatient Medications Acetaminophen (Acetaminophen 325 Mg Tab) 650 mg PO Q4H PRN PRN Reason: Pain or Fever Stop: 02/12/23 14:41 Al Hydrox/Mg Hydrox/Simethicone (Aluminum/Magnesium Susp 30 Ml Udc) 15 ml PO Q4H PRN PRN Reason: Dyspepsia Stop: 02/12/23 14:41 Albuterol (Albut/Ipratrop 3mg/0.5mg Neb 3 Ml Vial) 3 ml NEB QIDR PRN; Protocol PRN Reason: sob Stop: 02/12/23 14:59 Last Admin: 01/17/23 21:35 Dose: 3 ml Albuterol (Albuterol Hfa 8 Gm Inhaler) 2 puffs INH QID PRN PRN Reason: Shortness Of Breath Or Wheezing Stop: 02/13/23 13:37 Last Admin: 01/17/23 19:46 Dose: 2 puffs Amoxicillin/Clavulanate Potassium (Amoxicillin/Clavulanate 875 Mg Tab) 1 tab PO BID [facility]; Protocol Stop: 01/20/23 19:59 Last Admin: 01/18/23 07:26 Dose: 1 tab Aspirin (Aspirin 81 Mg Ectab) 81 mg PO QAM [facility] Stop: 02/13/23 08:59 Last Admin: 01/18/23 07:28 Dose: 81 mg Atorvastatin Calcium (Atorvastatin 40 Mg Tab) 80 mg PO QPM [facility] Stop: 02/12/23 20:59 Last Admin: 01/17/23 21:06 Dose: 80 mg Buprenorphine HCl (Buprenorphine Hcl 8 Mg Subl) 8 mg SL TID [facility] Stop: 02/13/23 14:59 Last Admin: 01/18/23 13:17 Dose: 8 mg Cyclobenzaprine HCl (Cyclobenzaprine Hcl 10 Mg Tab) 10 mg PO BID PRN PRN Reason: Muscle Spasm Stop: 02/12/23 16:06 Last Admin: 01/18/23 07:41 Dose: 10 mg Dextromethorphan Polymer Complex (Dextromethorphan Polymr Complx 60 Mg/10 Ml Udp) 60 mg PO Q12H PRN PRN Reason: Cough Stop: 02/12/23 15:56 Last Admin: 01/13/23 22:16 Dose: 60 mg Dextrose (Dextrose 50% 50 Ml Syringe) 25 - 50 ml IV UD PRN; Protocol PRN Reason: Hypoglycemia Protocol Stop: 02/12/23 15:59 Diclofenac Sodium (Diclofenac Sod 1% Gel 100 Gm Tube) 2 gm EXT BID [facility]; Protocol Stop: 02/12/23 20:59 Last Admin: 01/18/23 07:31 Dose: 2 gm Docusate Sodium (Docusate Sodium 100 Mg Cap) 100 mg PO BID [facility] Stop: 02/12/23 20:59 Last Admin: 01/18/23 07:31 Dose: 100 mg Duloxetine HCl (Duloxetine Hcl 60 Mg Cap) 60 mg PO DAILY [facility] Stop: 02/13/23 08:59 Last Admin: 01/18/23 07:30 Dose: 60 mg Famotidine (Famotidine 20 Mg Tab) 20 mg PO DAILY [facility] Stop: 02/13/23 08:59 Last Admin: 01/18/23 07:27 Dose: 20 mg Ferrous Sulfate (Ferrous Sulfate 325 Mg Tab) 325 mg PO QAM [facility] Stop: 02/13/23 08:59 Last Admin: 01/18/23 07:27 Dose: 325 mg Finasteride (Finasteride 5 Mg Tab) 5 mg PO QAM [facility] Stop: 02/13/23 08:59 Last Admin: 01/18/23 07:27 Dose: 5 mg Fluticasone Propionate (Fluticasone Propionate Na Spr 16 Gm Btl) 2 sprays NA DAILY [facility] Stop: 02/13/23 08:59 Last Admin: 01/18/23 07:31 Dose: 2 sprays Folic Acid (Folic Acid 1 Mg Tab) 1 mg PO QAM [facility] Stop: 02/13/23 08:59 Last Admin: 01/18/23 07:28 Dose: 1 mg Furosemide (Furosemide 40 Mg/4 Ml Vial) 40 mg IV Q8H [facility] Stop: 02/14/23 15:59 Last Admin: 01/18/23 07:30 Dose: 40 mg Gabapentin (Gabapentin 800 Mg Tab) 800 mg PO TID [facility] Stop: 02/12/23 20:59 Last Admin: 01/18/23 13:09 Dose: 800 mg Glucagon (Glucagon For Inj 1 Mg Vial) 1 mg SQ UD PRN; Protocol PRN Reason: Hypoglycemia Protocol Stop: 02/12/23 15:59 Glucose (Glucose 10 Tab/Tube) 4 - 8 tab PO UD PRN; Protocol PRN Reason: Hypoglycemia Treatment Stop: 02/12/23 15:59 Glucose (Glucose 40% Gel 15 Gm Tube) 15 - 30 gm PO UD PRN; Protocol PRN Reason: Hypoglycemia Protocol Stop: 02/12/23 15:59 Hydrocodone Bit/Homatropine Methylb (Hydrocodone/Homatropine Syrup 5mg/1.5mg 5ml Udp) 5 ml PO Q6H PRN PRN Reason: Cough Stop: 01/28/23 13:44 Last Admin: 01/18/23 13:09 Dose: 5 ml Hydroxyzine HCl (Hydroxyzine Hcl 25 Mg Tab) 25 mg PO QID PRN PRN Reason: Anxiety Stop: 02/12/23 16:06 Methylprednisolone 20 mg/ (Syringe) 0.32 mls @ 1.5 mls/min IV Q12H [facility] Stop: 02/15/23 01:59 Last Admin: 01/18/23 13:09 Dose: 1.5 mls/min Acetaminophen (Ofirmev) 1,000 mg in 100 mls @ 400 mls/hr IV BID [facility] Stop: 01/21/23 08:59 Last Infusion: 01/18/23 09:31 Dose: Infused Insulin Aspart (Insulin Aspart Per Unit Charge) 0 units SC ACHS [facility] Stop: 02/12/23 16:29 Last Admin: 01/18/23 11:51 Dose: 36 units Insulin Glargine (Lantus Per Unit Charge) 0 units SQ BID [facility]; Protocol Stop: 02/15/23 08:59 Last Admin: 01/18/23 07:52 Dose: 30 units Isosorbide Mononitrate (Isosorbide [place] Extended Rel 30 Mg Tabcr) 30 mg PO DAILY [facility] Stop: 02/13/23 08:59 Last Admin: 01/18/23 07:29 Dose: 30 mg Lactic Acid (Ammonium Lactate 12% Lotion 225 Gm Btl) 1 gm EXT BID [facility] Stop: 02/15/23 11:59 Last Admin: 01/18/23 07:30 Dose: 1 gm Lactobacillus Acidophilus (Advanced Probiotic 1250 Mg Capsule) 2 cap PO DAILY [facility] Stop: 02/13/23 09:44 Last Admin: 01/18/23 07:28 Dose: 2 cap Lorazepam (Lorazepam 0.5 Mg Tab) 0.5 mg PO Q8 PRN PRN Reason: Anxiety Stop: 02/13/23 18:14 Last Admin: 01/18/23 07:41 Dose: 0.5 mg Magnesium Hydroxide (Magnesium Hydroxide Susp 30 Ml Udc) 30 ml PO Q12H PRN PRN Reason: Constipation Stop: 02/12/23 14:41 Magnesium Oxide (Magnesium Oxide 400 Mg Tab) 400 mg PO DAILY [facility] Stop: 02/13/23 08:59 Last Admin: 01/18/23 07:28 Dose: 400 mg Metoprolol Succinate (Metoprolol Succ 25mg Ext Rel Tab) 75 mg PO BID [facility] Stop: 02/12/23 20:59 Last Admin: 01/18/23 07:26 Dose: 75 mg Miconazole Nitrate (Miconazole Nitrate Powder 85 Gm) 1 appln EXT PRN PRN PRN Reason: Affected Skin Folds Stop: 02/13/23 09:45 Miscellaneous (Remove Nicoderm Patch) 1 each N/A DAILY@0859 [facility] Stop: 02/13/23 08:58 Last Admin: 01/18/23 07:30 Dose: 1 each Miscellaneous (Carbohydrates For Hypoglycemia ) 15 - 30 gm PO UD PRN PRN Reason: Hypoglycemia Protocol Stop: 02/12/23 15:59 Miscellaneous Information (Pharmacy Glycemic Mgmt Consult) 1 each N/A UD PRN PRN Reason: Consult Stop: 02/12/23 15:59 Nicotine (Nicotine 21 Mg/24 Hr Tdsy) [address] [facility] [place] Stop: 02/12/23 15:59 Last Admin: 01/18/23 07:29 Dose: 21 mg Ondansetron HCl (Ondansetron Inj 2 Mg/Ml 2 Ml Vial) 4 mg IV Q6H PRN PRN Reason: Nausea Stop: 02/12/23 14:41 Pantoprazole Sodium (Pantoprazole 40 Mg Tab) 40 mg PO DAILYBB [facility] Stop: 02/13/23 06:29 Last Admin: 01/18/23 06:21 Dose: 40 mg Polyethylene Glycol (Polyethylene (Miralax) 17 Gm Pack) 17 gm PO DAILY PRN PRN Reason: Constipation Stop: 02/12/23 14:41 Last Admin: 01/13/23 20:48 Dose: 17 gm Potassium Chloride (Potassium Chloride Crtab 20 Meq Tabcr) 40 meq PO BID [facility] Stop: 02/12/23 20:59 Last Admin: 01/18/23 07:26 Dose: 40 meq Spironolactone (Spironolactone 25 Mg Tab) 25 mg PO [facility] Stop: 02/13/23 08:59 Last Admin: 01/18/23 07:30 Dose: 25 mg Tamsulosin HCl (Tamsulosin Hcl 0.4 Mg Cap) 0.8 mg PO [facility] Stop: 02/13/23 08:59 Last Admin: 01/18/23 07:30 Dose: 0.8 mg Vitamin D (Cholecalciferol 5,000 Units 125 Mcg Tab) 5,000 units PO [facility] Stop: 02/13/23 08:59 Last Admin: 01/18/23 07:29 Dose: 5,000 units Warfarin Sodium (Warfarin Sod 2.5 Mg Tab) 2.5 mg PO [id number] [facility] Stop: 02/13/23 15:59 Last Admin: 01/17/23 16:40 Dose: 2.5 mg Warfarin Sodium (Warfarin Sod 5 Mg Tab) 5 mg PO [id number] [facility] Stop: 02/14/23 15:59 Last Admin: 01/15/23 16:16 Dose: 5 mg (5) Fluid overload Hypervolemia type: unspecified Qualified Code(s): E87.70 - Fluid overload, unspecified (9) COPD (chronic obstructive pulmonary disease) COPD type: unspecified COPD Qualified Code(s): J44.9 - Chronic obstructive pulmonary disease, unspecified
[2023-01-18] MEDS: WARFARIN SOD 5 MG TAB PO SCH (16:46)
[2023-01-18] MEDS: ATORVASTATIN 40 MG TAB PO SCH (21:15)
[2023-01-19] MEDS: FUROSEMIDE 40 MG/4 ML VIAL IV SCH ×2 (00:04→07:26)
[2023-01-19] MEDS: methylPREDNISolone 20 MG in SYRINGE 0 ML IV SCH ×2 (02:00→14:14)
[2023-01-19] MEDS: HYDROcodone/HOMATROPINE SYRUP 5MG/1.5MG 5ML UDP PO PRN ×4 (02:00→21:35)
[2023-01-19] MEDS: PANTOprazole 40 MG TAB PO SCH (06:10)
[2023-01-19] MEDS: CYCLOBENZAPRINE HCL 10 MG TAB PO PRN ×2 (07:17→21:34)
[2023-01-19] MEDS: ACETAMINOPHEN 1,000 MG/100 ML VIAL IV SCH ×2 (07:17→21:28)
[2023-01-19] MEDS: LORazepam 0.5 MG TAB PO PRN ×2 (07:18→21:35)
[2023-01-19] MEDS: buprenorphine HCL 8 MG SUBL SL SCH ×3 (07:18→21:34)
[2023-01-19] MEDS: DULoxetine HCL 60 MG CAP PO SCH (07:18)
[2023-01-19] MEDS: ISOSORBIDE MONO EXTENDED REL 30 MG TABCR PO SCH (07:19)
[2023-01-19] MEDS: MAGNESIUM OXIDE 400 MG TAB PO SCH (07:19)
[2023-01-19] MEDS: ADVANCED PROBIOTIC 1250 MG CAPSULE PO SCH (07:19)
[2023-01-19] MEDS: TAMSULOSIN HCL 0.4 MG CAP PO SCH (07:20)
[2023-01-19] MEDS: SPIRONOLACTONE 25 MG TAB PO SCH (07:20)
[2023-01-19] MEDS: CHOLECALCIFEROL 5,000 UNITS 125 MCG TAB PO SCH (07:21)
[2023-01-19] MEDS: FERROUS SULFATE 325 MG TAB PO SCH (07:21)
[2023-01-19] MEDS: DOCUSATE SODIUM 100 MG CAP PO SCH ×2 (07:21→21:35)
[2023-01-19] MEDS: FOLIC ACID 1 MG TAB PO SCH (07:21)
[2023-01-19] MEDS: POTASSIUM CHLORIDE CRTAB 20 MEQ TABCR PO SCH ×2 (07:22→21:35)
[2023-01-19] MEDS: GABAPENTIN 800 MG TAB PO SCH ×3 (07:22→21:36)
[2023-01-19] MEDS: METOPROLOL SUCC 25MG EXT REL TAB PO SCH ×2 (07:22→21:35)
[2023-01-19] MEDS: NICOTINE 21 MG/24 HR TDSY TD SCH (07:23)
[2023-01-19] MEDS: FINASTERIDE 5 MG TAB PO SCH (07:23)
[2023-01-19] MEDS: FLUTICASONE PROPIONATE NA SPR 16 GM BTL SCH (07:24)
[2023-01-19] MEDS: FAMOTIDINE 20 MG TAB PO SCH (07:24)
[2023-01-19] MEDS: AMOXICILLIN/CLAVULANATE 875 MG TAB PO SCH ×2 (07:24→21:36)
[2023-01-19] MEDS: DICLOFENAC SOD 1% GEL 100 GM TUBE EXT SCH ×2 (07:24→21:32)
[2023-01-19] MEDS: AMMONIUM LACTATE 12% LOTION 225 GM BTL EXT SCH ×2 (07:25→21:32)
[2023-01-19] MEDS: ASPIRIN 81 MG ECTAB PO SCH (07:25)
[2023-01-19] MEDS: INSULIN ASPART PER UNIT CHARGE SC SCH ×4 (08:14→21:26)
[2023-01-19] MEDS: LANTUS PER UNIT CHARGE SQ SCH ×2 (08:14→21:27)
[2023-01-19 09:11] LABS: Basophils # (auto) 0.09 K/uL (0-0.2); Basophils % (auto) 0.5 %; Eosinophils # (auto) 0.03 K/uL (0-0.50); Eosinophils % (auto) 0.2 %; Hematocrit (blood only) 44.1 % (42.0-52.0); Hemoglobin 13.8 g/dl (14.0-18.0); Immature Granulocytes # (auto) 0.48 K/uL (0.01-0.20); Immature Granulocytes % (auto) 2.4 %; Lymphocytes # (auto) 3.21 K/uL (1.2-3.4); Lymphocytes % (auto) 16.4 %; Mean Corpuscular Hemoglobin 27.5 pg (25.0-34.0); Mean Corpuscular Hgb Conc 31.3 g/dL (32.0-36.0); Monocytes % (auto) 4.1 %; Neutrophils % (auto) 76.4 %; Platelet Count 260 K/uL (130-400); RDW Coefficient of Variation 18.5 % (11.5-14.5); RDW Standard Deviation 57.5 fL (36.4-46.3); Red Blood Count 5.01 M/uL (4.70-6.10); White Blood Count 19.61 K/ul (4.8-10.8)
[2023-01-19 09:35] LABS: INR 2.1 (0.9-1.1); Prothrombin Time 21.8 Seconds (9.0-12.0)
[2023-01-19 09:44] LABS: BUN Creatinine Ratio 31.3 (10-20); Calcium 10.1 mg/dl (8.6-10.3); Creatinine Clr Calc Pharmacy 160.7 ml/min; Est GFR (African American) 101.1 ml/min; Est GFR (Non-African American) 87.2 ml/min; Magnesium 2.3 mg/dl (1.7-2.4); Potassium 4.7 mmol/L (3.5-5.1)
--- NOTE | 2023-01-19 14:30 | Hospitalist Progress Note ---
Date of Service January 19, 2023 Assessment & Plan (1) Acute on chronic heart failure with preserved ejection fraction: Plan: Has been diuresing enough and will continue to diurese until kidney function is holding Continue Lasix IV 3 times a day as of today Has had negative balance of 14,000mls since admission More than 18 L of fluid has been diuresed CO2 level has gone up to 42 and IV Lasix will be stopped and continue with his usual oral dose of Lasix as an outpatient (2) Hypoxia: Plan: Hypoxia has been improving and he requires 3 L of oxygen to maintain saturation now Still has wheezing-has been communicating normally without any problem Minimal wheezing and very minimal crackles at the bases Has been requiring 4 L of oxygen to maintain saturation (3) Hypomagnesemia: (4) 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: Plan: Blood sugar seems to be on the upper side of normal (5) Fluid overload: Plan: Has been diuresing enough Has been diuresing enough and also drinking more than prescribed amount of fluid Enough diuresis has been done so far more than 18 L (6) BPH (benign prostatic hyperplasia): (7) Indwelling Fontaine catheter present: (8) Depression with anxiety: (9) COPD (chronic obstructive pulmonary disease): Plan: Minimal wheezing Plan 52 year old presents with HFpEF and COPD exacerbation with hypoxia. Patient supr atherapeutic INR 3.6; will hold Coumadin and reassess, Diabetes with insulin dependence. Will diurese and add additional Prednisone and supportive treatment with nebs and Delsym. acute on chronic heart failure with preserved ejection fraction: Fluid overload: Hypoxia: Given 40 mg Lasix in ED; continue 40 mg IV BID Takes 40 mg PO daily at home; possible noncompliance Most recent Echo 12/10/22: EF 55-60%, Mild concentric LVH, RV dilation. Strict I/O 1800mL Continue Spirinolactone with KCL replacements as he takes at home CXR negative-mild congestive changes Daily weights Has been getting Lasix 40 mg IV twice daily Monitor intake output and PRP We will increase the Lasix to 40 mg IV every 8 hourly Still looks bloated and has an negative balance of 489 2 mL We will continue Lasix 40 mg 3 times a day-creatinine and electrolytes will be monitored We will check PRP tomorrow to decide the dosing of Lasix Kidney function remains stable-saturating normally on 4 L of nasal cannula oxygen Back to his baseline doses of Lasix COPD: Likely has exacerbation Tobacco Use: Chronic cough with acute exacerbation Takes Prednisone 10 mg PO daily; will start Prednisone 40 mg PO daily Will give Hycodan PRN and Nebs PRN Smoking cessation encouraged Nicotine patch ordered Wears 3 LNC QHS but has been requiring 6 L/min now Will DC prednisone and give Solu-Medrol 40 mg twice daily for now Solu-Medrol will be decreased to 20 mg IV twice daily Augmentin has been added to cover UTI and respiratory pathogens Clinically better and will continue current regimen Still has wheezing but saturating on 5 L now 4 L today to maintain saturation Continue antibiotic for a total of 7 to 10 days Will need a tapered course of steroid on discharge Chronic Anticoagulation: Supratherapeutic: Takes Coumadin 2.5 on and , 5 mg all other days Compliant with Coumadin clinic Last night INR 3.1; did not take Coumadin In ED INR 3.6; will hold Coumadin tonight and recheck in AM We will continue Coumadin-INR is 2.1 as of 01/18/2023 Hypomagnesia: Mg+ 1.5; replace with 2G Magnesium; trend Mg+ in AM Type 2 diabetes with insulin deficiency: Takes Lantus 100 Units QHS and Glipizide; hold Place on ACHS FSBS SSI Glycemic Pharmacy consultation BPH: Indwelling Fontaine catheter, chronic::: UTI due to indwelling Fontaine catheter-Enterococcus faecalis--pansensitive except tetracycline UA appears infected however has chronically dirty appearing urine Last admission: Urology consutlation and his urine culture at that time grew lactobacillus indwelling fontaine catheter in place ; Change out fontaine while here WBC 13.04; trend while here. Does not appear toxic Await Urine culture Continue treatment for Zosyn Urine is showing gram-positive cocci will change the catheter and recheck UA and UCS Urine culture is growing Enterococcus faecalis and that is pansensitive Intravenous Zosyn has been discontinued and oral Augmentin has been started to cover respiratory pathogens as well Urine looks clear- Depression with anxiety: Takes Duloxetine; continue HLD: Takes Atorvastatin; continue Disposition: PCP:Dr. Askew CODE STATUS: Full code VTE prophylaxis: On Coumadin; being held due to Supratherapeutic : He is back on his Coumadin Likely discharge in a day or 2 Admission and Anticipated Discharge Date Admission Date: January 13, 2023 Subjective 01/14/2023 The patient was seen and examined in medical telemetry unit He has been complaining of wheezing, shortness of breath, cough and weight gain Denies any chest pain and/or palpitation No fever and no chills Complains pain involving the neck, back and right foot 01/15/2023 The patient was seen and examined in the medical telemetry unit He has been worse today with increasing shortness of breath and cough with productive of phlegm Looks bloated Denies any fever and or chills 01/16/2023 The patient was seen and examined in medical telemetry unit He has been feeling a little better but he still has cough with wheezing and shortness of breath His legs are much improved and has chronic skin changes including the feet 01/17/2023 The patient was seen and examined in medical telemetry unit He complains of ongoing cough and wheezing and has not been feeling well His legs are way down and he has been having much diuresis We will get PT and OT evaluation 01/18/2023 The patient was seen and examined in medical telemetry unit He complains to have more shortness of breath and wheezing Denies any other symptoms He has a physical therapy and recommended home 01/19/2023 The patient was seen and examined in medical telemetry unit He has been complaining of ongoing wheezing and cough and says that he is not yet ready to be discharged Denies any chest pain, palpitation or shortness of breath Review of Systems Review of Systems: All systems reviewed and are unremarkable except as noted below Physical Exam Physical Exam: Lying in bed with minimal distress Constitutional: well developed, well nourished, + ill appearing and + morbidly obese Eyes: PERRL, conjunctivae normal, anicteric sclerae ENMT: external ear and nose normal, oropharynx normal Neck: trachea midline, no thyromegaly Respiratory: normal respiratory effort, lungs clear to auscultation no respiratory distress Auscultation: + diminished lung sounds, + crackles and + wheezes Cardiovascular: Rate/Rhythm: regular rate and regular rhythm; not tachycardic Heart Sounds: normal S1, normal S2 and + murmur Extremities: + edema (Chronic edema bilaterally with skin changes in the legs) Gastrointestinal (Abdomen): Inspection/Auscultation: + abdomen distended and normal bowel sounds Percussion/Palpation: abdomen soft; abdomen nontender Musculoskeletal: No acute arthritis involving any of the joints Neurologic: normal touch/pain/proprioception and moves all extremities; no focal motor deficits Psychiatric: A+Ox3, euthymic affect Lymphatic: no cervical or axillary lymphadenopathy Results & Data Results & Data Vital Signs (Past 12 Hours) Vital Signs Temp Pulse Pulse Resp BP Pulse Ox O2 Del Method 01/19/23 11:02 37.0 C 69 18 128/78 96 Nasal Cannula 01/19/23 08:44 Nasal Cannula 01/19/23 07:35 36.5 C 67 18 124/80 99 Nasal Cannula 01/19/23 07:08 59 L O2 Flow Rate 01/19/23 11:02 4 01/19/23 08:44 3 01/19/23 07:35 4 01/19/23 07:08 Laboratory Results Short CBC 01/19/23 Range/Units 08:49 WBC 19.61 H (4.8-10.8) K/ul Hgb 13.8 L (14.0-18.0) g/dl Hct 44.1 (42.0-52.0) % Plt Count 260 (130-400) K/uL BMP 01/19/23 08:49 Sodium 140 Potassium 4.7 Chloride 95 L Carbon Dioxide 42 H* BUN 31 H Creatinine 0.99 Glucose 201 H Calcium 10.1 Medications Administered Current Inpatient Medications Acetaminophen (Acetaminophen 325 Mg Tab) 650 mg PO Q4H PRN PRN Reason: Pain or Fever Stop: 02/12/23 14:41 Al Hydrox/Mg Hydrox/Simethicone (Aluminum/Magnesium Susp 30 Ml Udc) 15 ml PO Q4H PRN PRN Reason: Dyspepsia Stop: 02/12/23 14:41 Albuterol (Albut/Ipratrop 3mg/0.5mg Neb 3 Ml Vial) 3 ml NEB QIDR PRN; Protocol PRN Reason: sob Stop: 02/12/23 14:59 Last Admin: 01/17/23 21:35 Dose: 3 ml Albuterol (Albuterol Hfa 8 Gm Inhaler) 2 puffs INH QID PRN PRN Reason: Shortness Of Breath Or Wheezing Stop: 02/13/23 13:37 Last Admin: 01/17/23 19:46 Dose: 2 puffs Amoxicillin/Clavulanate Potassium (Amoxicillin/Clavulanate 875 Mg Tab) 1 tab PO BID [facility]; Protocol Stop: 01/20/23 19:59 Last Admin: 01/19/23 07:24 Dose: 1 tab Aspirin (Aspirin 81 Mg Ectab) 81 mg PO QAM [facility] Stop: 02/13/23 08:59 Last Admin: 01/19/23 07:25 Dose: 81 mg Atorvastatin Calcium (Atorvastatin 40 Mg Tab) 80 mg PO QPM [facility] Stop: 02/12/23 20:59 Last Admin: 01/18/23 21:15 Dose: 80 mg Buprenorphine HCl (Buprenorphine Hcl 8 Mg Subl) 8 mg SL TID [facility] Stop: 02/13/23 14:59 Last Admin: 01/19/23 14:14 Dose: 8 mg Cyclobenzaprine HCl (Cyclobenzaprine Hcl 10 Mg Tab) 10 mg PO BID PRN PRN Reason: Muscle Spasm Stop: 02/12/23 16:06 Last Admin: 01/19/23 07:17 Dose: 10 mg Dextromethorphan Polymer Complex (Dextromethorphan Polymr Complx 60 Mg/10 Ml Udp) 60 mg PO Q12H PRN PRN Reason: Cough Stop: 02/12/23 15:56 Last Admin: 01/13/23 22:16 Dose: 60 mg Dextrose (Dextrose 50% 50 Ml Syringe) 25 - 50 ml IV UD PRN; Protocol PRN Reason: Hypoglycemia Protocol Stop: 02/12/23 15:59 Diclofenac Sodium (Diclofenac Sod 1% Gel 100 Gm Tube) 2 gm EXT BID [facility]; Protocol Stop: 02/12/23 20:59 Last Admin: 01/19/23 07:24 Dose: 2 gm Docusate Sodium (Docusate Sodium 100 Mg Cap) 100 mg PO BID [facility] Stop: 02/12/23 20:59 Last Admin: 01/19/23 07:21 Dose: 100 mg Duloxetine HCl (Duloxetine Hcl 60 Mg Cap) 60 mg PO DAILY [facility] Stop: 02/13/23 08:59 Last Admin: 01/19/23 07:18 Dose: 60 mg Famotidine (Famotidine 20 Mg Tab) 20 mg PO DAILY [facility] Stop: 02/13/23 08:59 Last Admin: 01/19/23 07:24 Dose: 20 mg Ferrous Sulfate (Ferrous Sulfate 325 Mg Tab) 325 mg PO QAM [facility] Stop: 02/13/23 08:59 Last Admin: 01/19/23 07:21 Dose: 325 mg Finasteride (Finasteride 5 Mg Tab) 5 mg PO QAM [facility] Stop: 02/13/23 08:59 Last Admin: 01/19/23 07:23 Dose: 5 mg Fluticasone Propionate (Fluticasone Propionate Na Spr 16 Gm Btl) 2 sprays NA DAILY [facility] Stop: 02/13/23 08:59 Last Admin: 01/19/23 07:24 Dose: 2 sprays Folic Acid (Folic Acid 1 Mg Tab) 1 mg PO QAM [facility] Stop: 02/13/23 08:59 Last Admin: 01/19/23 07:21 Dose: 1 mg Furosemide (Furosemide 40 Mg Tab) 40 mg PO BID [facility] Stop: 02/18/23 20:59 Gabapentin (Gabapentin 800 Mg Tab) 800 mg PO TID [facility] Stop: 02/12/23 20:59 Last Admin: 01/19/23 14:14 Dose: 800 mg Glucagon (Glucagon For Inj 1 Mg Vial) 1 mg SQ UD PRN; Protocol PRN Reason: Hypoglycemia Protocol Stop: 02/12/23 15:59 Glucose (Glucose 10 Tab/Tube) 4 - 8 tab PO UD PRN; Protocol PRN Reason: Hypoglycemia Treatment Stop: 02/12/23 15:59 Glucose (Glucose 40% Gel 15 Gm Tube) 15 - 30 gm PO UD PRN; Protocol PRN Reason: Hypoglycemia Protocol Stop: 02/12/23 15:59 Hydrocodone Bit/Homatropine Methylb (Hydrocodone/Homatropine Syrup 5mg/1.5mg 5ml Udp) 5 ml PO Q6H PRN PRN Reason: Cough Stop: 01/28/23 13:44 Last Admin: 01/19/23 14:14 Dose: 5 ml Hydroxyzine HCl (Hydroxyzine Hcl 25 Mg Tab) 25 mg PO QID PRN PRN Reason: Anxiety Stop: 02/12/23 16:06 Methylprednisolone 20 mg/ (Syringe) 0.32 mls @ 1.5 mls/min IV Q12H [facility] Stop: 02/15/23 01:59 Last Admin: 01/19/23 14:14 Dose: 1.5 mls/min Acetaminophen (Ofirmev) 1,000 mg in 100 mls @ 400 mls/hr IV BID [facility] Stop: 01/21/23 08:59 Last Infusion: 01/19/23 07:35 Dose: Infused Insulin Aspart (Insulin Aspart Per Unit Charge) 0 units SC ACHS [facility] Stop: 02/12/23 16:29 Last Admin: 01/19/23 12:06 Dose: 36 units Insulin Glargine (Lantus Per Unit Charge) 0 units SQ BID [facility]; Protocol Stop: 02/15/23 08:59 Last Admin: 01/19/23 08:14 Dose: 30 units Isosorbide Mononitrate (Isosorbide [place] Extended Rel 30 Mg Tabcr) 30 mg PO DAILY [facility] Stop: 02/13/23 08:59 Last Admin: 01/19/23 07:19 Dose: 30 mg Lactic Acid (Ammonium Lactate 12% Lotion 225 Gm Btl) 1 gm EXT BID [facility] Stop: 02/15/23 11:59 Last Admin: 01/19/23 07:25 Dose: 1 gm Lactobacillus Acidophilus (Advanced Probiotic 1250 Mg Capsule) 2 cap PO DAILY [facility] Stop: 02/13/23 09:44 Last Admin: 01/19/23 07:19 Dose: 2 cap Lorazepam (Lorazepam 0.5 Mg Tab) 0.5 mg PO Q8 PRN PRN Reason: Anxiety Stop: 02/13/23 18:14 Last Admin: 01/19/23 07:18 Dose: 0.5 mg Magnesium Hydroxide (Magnesium Hydroxide Susp 30 Ml Udc) 30 ml PO Q12H PRN PRN Reason: Constipation Stop: 02/12/23 14:41 Magnesium Oxide (Magnesium Oxide 400 Mg Tab) 400 mg PO DAILY [facility] Stop: 02/13/23 08:59 Last Admin: 01/19/23 07:19 Dose: 400 mg Metoprolol Succinate (Metoprolol Succ 25mg Ext Rel Tab) 75 mg PO BID [facility] Stop: 02/12/23 20:59 Last Admin: 01/19/23 07:22 Dose: 75 mg Miconazole Nitrate (Miconazole Nitrate Powder 85 Gm) 1 appln EXT PRN PRN PRN Reason: Affected Skin Folds Stop: 02/13/23 09:45 Miscellaneous (Remove Nicoderm Patch) 1 each N/A DAILY@0859 [facility] Stop: 02/13/23 08:58 Last Admin: 01/19/23 07:17 Dose: 1 each Miscellaneous (Carbohydrates For Hypoglycemia ) 15 - 30 gm PO UD PRN PRN Reason: Hypoglycemia Protocol Stop: 02/12/23 15:59 Miscellaneous Information (Pharmacy Glycemic Mgmt Consult) 1 each N/A UD PRN PRN Reason: Consult Stop: 02/12/23 15:59 Nicotine (Nicotine 21 Mg/24 Hr Tdsy) 21 mg TD QAM [facility] Stop: 02/12/23 15:59 Last Admin: 01/19/23 07:23 Dose: 21 mg Ondansetron HCl (Ondansetron Inj 2 Mg/Ml 2 Ml Vial) 4 mg IV Q6H PRN PRN Reason: Nausea Stop: 02/12/23 14:41 Pantoprazole Sodium (Pantoprazole 40 Mg Tab) 40 mg PO DAILYBB [facility] Stop: 02/13/23 06:29 Last Admin: 01/19/23 06:10 Dose: 40 mg Polyethylene Glycol (Polyethylene (Miralax) 17 Gm Pack) 17 gm PO DAILY PRN PRN Reason: Constipation Stop: 02/12/23 14:41 Last Admin: 01/13/23 20:48 Dose: 17 gm Potassium Chloride (Potassium Chloride Crtab 20 Meq Tabcr) 40 meq PO BID [facility] Stop: 02/12/23 20:59 Last Admin: 01/19/23 07:22 Dose: 40 meq Spironolactone (Spironolactone 25 Mg Tab) [facility] [place] Stop: 02/13/23 08:59 Last Admin: 01/19/23 07:20 Dose: 25 mg Tamsulosin HCl (Tamsulosin Hcl 0.4 Mg Cap) 0.8 mg [facility] [place] Stop: 02/13/23 08:59 Last Admin: 01/19/23 07:20 Dose: 0.8 mg Vitamin D (Cholecalciferol 5,000 Units 125 Mcg Tab) 5,000 units PO [facility] [place] Stop: 02/13/23 08:59 Last Admin: 01/19/23 07:21 Dose: 5,000 units Warfarin Sodium (Warfarin Sod 2.5 Mg Tab) 2.5 mg PO SuTuWeThSa@1600 [facility] Stop: 02/13/23 15:59 Last Admin: 01/17/23 16:40 Dose: 2.5 mg Warfarin Sodium (Warfarin Sod 5 Mg Tab) 5 mg PO MoFr@1600 [facility] Stop: 02/14/23 15:59 Last Admin: 01/18/23 16:46 Dose: 5 mg (5) Fluid overload Hypervolemia type: unspecified Qualified Code(s): E87.70 - Fluid overload, unspecified (9) COPD (chronic obstructive pulmonary disease) COPD type: unspecified COPD Qualified Code(s): J44.9 - Chronic obstructive pulmonary disease, unspecified
[2023-01-19] MEDS: WARFARIN SOD 2.5 MG TAB PO SCH (17:11)
[2023-01-19] MEDS: FUROSEMIDE 40 MG TAB PO SCH (21:36)
[2023-01-19] MEDS: ATORVASTATIN 40 MG TAB PO SCH (21:37)
[2023-01-20] MEDS: HYDROcodone/HOMATROPINE SYRUP 5MG/1.5MG 5ML UDP PO PRN ×4 (02:55→21:38)
[2023-01-20] MEDS: methylPREDNISolone 20 MG in SYRINGE 0 ML IV SCH ×2 (02:56→15:13)
[2023-01-20] MEDS: PANTOprazole 40 MG TAB PO SCH (06:07)
[2023-01-20 07:43] LABS: BUN Creatinine Ratio 30.5 (10-20); Calcium 9.6 mg/dl (8.6-10.3); Creatinine Clr Calc Pharmacy 167.5 ml/min; Est GFR (African American) 106.2 ml/min; Est GFR (Non-African American) 91.7 ml/min; Potassium 4.6 mmol/L (3.5-5.1)
[2023-01-20] MEDS: CYCLOBENZAPRINE HCL 10 MG TAB PO PRN ×2 (08:52→21:38)
[2023-01-20] MEDS: LORazepam 0.5 MG TAB PO PRN ×2 (08:52→21:38)
[2023-01-20] MEDS: CHOLECALCIFEROL 5,000 UNITS 125 MCG TAB PO SCH (08:53)
[2023-01-20] MEDS: SPIRONOLACTONE 25 MG TAB PO SCH (08:53)
[2023-01-20] MEDS: buprenorphine HCL 8 MG SUBL SL SCH ×3 (08:53→21:38)
[2023-01-20] MEDS: ASPIRIN 81 MG ECTAB PO SCH (08:53)
[2023-01-20] MEDS: NICOTINE 21 MG/24 HR TDSY TD SCH (08:53)
[2023-01-20] MEDS: MAGNESIUM OXIDE 400 MG TAB PO SCH (08:53)
[2023-01-20] MEDS: FINASTERIDE 5 MG TAB PO SCH (08:53)
[2023-01-20] MEDS: DULoxetine HCL 60 MG CAP PO SCH (08:53)
[2023-01-20] MEDS: TAMSULOSIN HCL 0.4 MG CAP PO SCH (08:53)
[2023-01-20] MEDS: DOCUSATE SODIUM 100 MG CAP PO SCH ×2 (08:54→21:41)
[2023-01-20] MEDS: GABAPENTIN 800 MG TAB PO SCH ×3 (08:54→21:41)
[2023-01-20] MEDS: POTASSIUM CHLORIDE CRTAB 20 MEQ TABCR PO SCH ×2 (08:54→21:40)
[2023-01-20] MEDS: AMOXICILLIN/CLAVULANATE 875 MG TAB PO SCH (08:54)
[2023-01-20] MEDS: METOPROLOL SUCC 25MG EXT REL TAB PO SCH ×2 (08:54→21:42)
[2023-01-20] MEDS: FAMOTIDINE 20 MG TAB PO SCH (08:54)
[2023-01-20] MEDS: FERROUS SULFATE 325 MG TAB PO SCH (08:54)
[2023-01-20] MEDS: FUROSEMIDE 40 MG TAB PO SCH ×2 (08:54→21:41)
[2023-01-20] MEDS: ISOSORBIDE MONO EXTENDED REL 30 MG TABCR PO SCH (08:54)
[2023-01-20] MEDS: FOLIC ACID 1 MG TAB PO SCH (08:55)
[2023-01-20] MEDS: FLUTICASONE PROPIONATE NA SPR 16 GM BTL SCH (08:55)
[2023-01-20] MEDS: DICLOFENAC SOD 1% GEL 100 GM TUBE EXT SCH ×2 (08:55→21:39)
[2023-01-20] MEDS: ADVANCED PROBIOTIC 1250 MG CAPSULE PO SCH (08:55)
[2023-01-20] MEDS: AMMONIUM LACTATE 12% LOTION 225 GM BTL EXT SCH ×2 (08:55→21:38)
[2023-01-20] MEDS: INSULIN ASPART PER UNIT CHARGE SC SCH ×4 (09:06→21:37)
[2023-01-20] MEDS: LANTUS PER UNIT CHARGE SQ SCH ×2 (09:07→21:38)
[2023-01-20] MEDS: ACETAMINOPHEN 1,000 MG/100 ML VIAL IV SCH ×2 (09:07→21:34)
[2023-01-20] MEDS: WARFARIN SOD 2.5 MG TAB PO SCH (15:14)
--- NOTE | 2023-01-20 18:55 | Hospitalist Progress Note ---
Date of Service January 20, 2023 Assessment & Plan (1) Acute on chronic heart failure with preserved ejection fraction: Plan: Volume overload secondary to above -CXR:No acute cardiopulmonary findings. No change in appearance of the chest. -IV Lasix transition to p.o. Weaned off of supplemental oxygen Continue fluid restriction Continue oral diuretics We will advised to follow-up with cardiology as outpatient (2) Hypoxia: Plan: Weaned off of supplemental oxygen Maintain oxygen saturations between 88 to 92% given history of COPD (3) Hypomagnesemia: (4) 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: Plan: Continue insulin while hospitalized (5) Fluid overload: Plan: Management as above (6) BPH (benign prostatic hyperplasia): Plan: Continue home medication (7) Indwelling Lloyd catheter present: (8) Depression with anxiety: (9) COPD (chronic obstructive pulmonary disease): Plan: Minimal wheezing Plan Acute COPD exacerbation Ongoing tobacco use Counseled on multiple occasions to quit smoking Transition IV steroids to p.o. prednisone as able Weaned off of supplemental oxygen Maintain saturations 88 to 92% Plan to discharge on prednisone taper course Chronic Anticoagulation: Supratherapeutic on presentation Takes Coumadin 2.5 on and , 5 mg all other days Compliant with Coumadin clinic outpatient Monitor INR Adjust Coumadin dose as needed Hypomagnesia: Replace electrolytes as needed Type 2 diabetes with insulin deficiency: Takes Lantus 100 Units QHS and Glipizide; hold Continue insulin while hospitalized Glycemic Pharmacy consultation BPH: Indwelling Lloyd catheter, chronic Complicated UTI due to indwelling Lloyd catheter-Enterococcus faecalis--pansensitive except tetracycline Urine culture grew Enterococcus IV Zosyn transition to Augmentin Depression with anxiety: on Duloxetine HLD: on Atorvastatin DVT Px: on Coumadin CODE STATUS Full code Admission and Anticipated Discharge Date Admission Date: January 13, 2023 Subjective Patient is seen and examined at bedside Reports dyspnea on exertion Cough improved Saturating well on room air Denies any chest pain, shortness of breath at rest, dizziness No other complaints Review of Systems Review of Systems: All systems reviewed & are unremarkable except as noted in Subjective Physical Exam Physical Exam: Physical Exam: Vitals signs as noted above General Appearance:Morbidly Obese, no apparent distress Head: normocephalic, Atraumatic Eyes: normal inspection, EOMI Neck: supple, Trachea midline Respiratory/Chest: Decreased Coarse breath sounds, Scattered wheezes, No accessory muscle use Cardiovascular: S1, S2, No murmur Abdomen/GI:Soft, Non tender, Bowel sounds present Extremities/Musculoskeletal:normal inspection, 1+ Pedal edema, chronic venous stasis changes Neurologic/Psych:AAOX3, grossly no focal neurological deficits Skin: normal color, warm Results & Data Results & Data Vital Signs (Past 12 Hours) Vital Signs Temp Pulse Pulse Resp BP Pulse Ox O2 Del Method 01/20/23 16:00 36.9 C 79 18 121/62 92 Room Air 01/20/23 15:46 71 01/20/23 09:16 96 Room Air 01/20/23 08:50 Nasal Cannula 01/20/23 12:20 36.4 C L 78 16 122/70 96 Room Air 01/20/23 08:11 36.4 C L 71 20 134/76 98 Nasal Cannula 01/20/23 07:29 62 O2 Flow Rate 01/20/23 16:00 01/20/23 15:46 01/20/23 09:16 01/20/23 08:50 4 01/20/23 12:20 01/20/23 08:11 4 01/20/23 07:29 Laboratory Results [facility] 01/20/23 01/20/23 06:48 17:18 Sodium 140 Potassium 4.6 Chloride 99 Carbon Dioxide 39 H BUN 29 H Creatinine 0.95 Glucose 154 H 121 H Calcium 9.6 (5) Fluid overload Hypervolemia type: unspecified Qualified Code(s): E87.70 - Fluid overload, unspecified (9) COPD (chronic obstructive pulmonary disease) COPD type: unspecified COPD Qualified Code(s): J44.9 - Chronic obstructive pulmonary disease, unspecified
[2023-01-20] MEDS: ATORVASTATIN 40 MG TAB PO SCH (21:41)
[2023-01-21] MEDS: methylPREDNISolone 20 MG in SYRINGE 0 ML IV SCH ×2 (01:52→12:49)
[2023-01-21] MEDS: HYDROcodone/HOMATROPINE SYRUP 5MG/1.5MG 5ML UDP PO PRN ×2 (04:16→10:41)
[2023-01-21] MEDS: PANTOprazole 40 MG TAB PO SCH (05:56)
[2023-01-21] MEDS ORDERED: LANTUS PER UNIT CHARGE SQ SCH (09:00)
[2023-01-21] MEDS: CYCLOBENZAPRINE HCL 10 MG TAB PO PRN (09:09)
[2023-01-21] MEDS: NICOTINE 21 MG/24 HR TDSY TD SCH (09:09)
[2023-01-21] MEDS: LORazepam 0.5 MG TAB PO PRN (09:09)
[2023-01-21] MEDS: buprenorphine HCL 8 MG SUBL SL SCH ×2 (09:09→13:25)
[2023-01-21] MEDS: AMMONIUM LACTATE 12% LOTION 225 GM BTL EXT SCH (09:09)
[2023-01-21] MEDS: DICLOFENAC SOD 1% GEL 100 GM TUBE EXT SCH (09:09)
[2023-01-21] MEDS: FINASTERIDE 5 MG TAB PO SCH (09:10)
[2023-01-21] MEDS: FUROSEMIDE 40 MG TAB PO SCH (09:10)
[2023-01-21] MEDS: DULoxetine HCL 60 MG CAP PO SCH (09:10)
[2023-01-21] MEDS: GABAPENTIN 800 MG TAB PO SCH ×2 (09:10→12:49)
[2023-01-21] MEDS: ASPIRIN 81 MG ECTAB PO SCH (09:10)
[2023-01-21] MEDS: POTASSIUM CHLORIDE CRTAB 20 MEQ TABCR PO SCH (09:10)
[2023-01-21] MEDS: FERROUS SULFATE 325 MG TAB PO SCH (09:10)
[2023-01-21] MEDS: TAMSULOSIN HCL 0.4 MG CAP PO SCH (09:10)
[2023-01-21] MEDS: ISOSORBIDE MONO EXTENDED REL 30 MG TABCR PO SCH (09:10)
[2023-01-21] MEDS: DOCUSATE SODIUM 100 MG CAP PO SCH (09:10)
[2023-01-21] MEDS: ADVANCED PROBIOTIC 1250 MG CAPSULE PO SCH (09:10)
[2023-01-21] MEDS: FOLIC ACID 1 MG TAB PO SCH (09:11)
[2023-01-21] MEDS: FAMOTIDINE 20 MG TAB PO SCH (09:11)
[2023-01-21] MEDS: METOPROLOL SUCC 25MG EXT REL TAB PO SCH (09:11)
[2023-01-21] MEDS: MAGNESIUM OXIDE 400 MG TAB PO SCH (09:11)
[2023-01-21] MEDS: CHOLECALCIFEROL 5,000 UNITS 125 MCG TAB PO SCH (09:11)
[2023-01-21] MEDS: FLUTICASONE PROPIONATE NA SPR 16 GM BTL SCH (09:11)
[2023-01-21] MEDS: SPIRONOLACTONE 25 MG TAB PO SCH (09:11)
[2023-01-21] MEDS: INSULIN ASPART PER UNIT CHARGE SC SCH ×2 (09:20→12:58)
[2023-01-21] MEDS ORDERED: ACETAMINOPHEN 1,000 MG/100 ML VIAL IV STA (10:29)
[2023-01-21 10:46] LABS: Hematocrit (blood only) 42.5 % (42.0-52.0); Hemoglobin 13.3 g/dl (14.0-18.0); Mean Corpuscular Hemoglobin 27.7 pg (25.0-34.0); Mean Corpuscular Hgb Conc 31.3 g/dL (32.0-36.0); Mean Corpuscular Volume 88.4 fL (80.0-100.0); Platelet Count 237 K/uL (130-400); RDW Coefficient of Variation 18.5 % (11.5-14.5); RDW Standard Deviation 58.9 fL (36.4-46.3); Red Blood Count 4.81 M/uL (4.70-6.10); White Blood Count 15.14 K/ul (4.8-10.8)
[2023-01-21 10:58] LABS: BUN Creatinine Ratio 27.5 (10-20); Calcium 9.7 mg/dl (8.6-10.3); Creatinine Clr Calc Pharmacy 174.7 ml/min; Est GFR (African American) 111.9 ml/min; Est GFR (Non-African American) 96.6 ml/min; Magnesium 2.2 mg/dl (1.7-2.4); Potassium 4.8 mmol/L (3.5-5.1)
[2023-01-21 11:09] LABS: INR 1.8 (0.9-1.1); Prothrombin Time 18.6 Seconds (9.0-12.0)
--- NOTE | 2023-01-21 12:25 | Hospitalist Progress Note ---
Date of Service January 21, 2023 Assessment & Plan (1) Acute on chronic heart failure with preserved ejection fraction: Plan: Volume overload secondary to above -CXR:No acute cardiopulmonary findings. No change in appearance of the chest. -IV Lasix transition to p.o. Weaned off of supplemental oxygen Continue fluid restriction Continue oral diuretics Advised to follow-up with cardiology as outpatient (2) Hypoxia: Plan: Weaned off of supplemental oxygen Maintain oxygen saturations between 88 to 92% given history of COPD Saturating well on room air (3) Hypomagnesemia: (4) 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: Plan: Continue insulin while hospitalized (5) Fluid overload: Plan: Management as above (6) BPH (benign prostatic hyperplasia): Plan: Continue home medication (7) Indwelling Lloyd catheter present: (8) Depression with anxiety: (9) COPD (chronic obstructive pulmonary disease): Plan: Minimal wheezing Plan Acute COPD exacerbation Ongoing tobacco use Counseled on multiple occasions to quit smoking Transition IV steroids to p.o. prednisone as able Weaned off of supplemental oxygen Maintain saturations 88 to 92% Plan to discharge on prednisone taper course Advised to quit smoking Also advised to follow-up with pulmonology as outpatient Chronic Anticoagulation: Supratherapeutic on presentation Takes Coumadin 2.5 on and Th, 5 mg all other days Compliant with Coumadin clinic outpatient Monitor INR Adjust Coumadin dose as needed Hypomagnesia: Replace electrolytes as needed Type 2 diabetes with insulin deficiency: Takes Lantus 100 Units QHS and Glipizide; hold Continue insulin while hospitalized Glycemic Pharmacy consultation BPH: Indwelling Lloyd catheter, chronic Complicated UTI due to indwelling Lloyd catheter-Enterococcus faecalis--pansensitive except tetracycline Urine culture grew Enterococcus IV Zosyn transition to Augmentin Depression with anxiety: on Duloxetine HLD: on Atorvastatin DVT Px: on Coumadin CODE STATUS Full code Admission and Anticipated Discharge Date Admission Date: January 13, 2023 Subjective Patient is seen and examined at bedside States feeling a lot better today Dyspnea much improved Eager to get discharged No new complaints Denies any chest pain, dizziness, nausea, abdominal pain No other complaints Review of Systems Review of Systems: All systems reviewed & are unremarkable except as noted in Subjective Physical Exam Physical Exam: Physical Exam: Vitals signs as noted above General Appearance:Morbidly Obese, no apparent distress Head: normocephalic, Atraumatic Eyes: normal inspection, EOMI Neck: supple, Trachea midline Respiratory/Chest: Decreased breath sounds, Scattered wheezes, No accessory muscle use Cardiovascular: S1, S2, No murmur Abdomen/GI:Soft, Non tender, Bowel sounds present Extremities/Musculoskeletal:normal inspection, 1+ Pedal edema, chronic venous stasis changes Neurologic/Psych:AAOX3, grossly no focal neurological deficits Skin: normal color, warm Results & Data Results & Data Vital Signs (Past 12 Hours) Vital Signs Temp Pulse Pulse Resp BP Pulse Ox O2 Del Method 01/21/23 09:00 Room Air 01/21/23 10:49 36.8 C 78 18 134/73 94 Room Air 01/21/23 07:22 66 01/21/23 06:17 37.0 C 71 20 123/69 94 Room Air 01/21/23 03:06 36.8 C 62 20 131/69 96 Room Air Laboratory Results Short CBC 01/21/23 Range/Units 10:21 WBC 15.14 H (4.8-10.8) K/ul Hgb 13.3 L (14.0-18.0) g/dl Hct 42.5 (42.0-52.0) % Plt Count 237 (130-400) K/uL BMP 01/20/23 01/21/23 17:18 10:21 Sodium 138 Potassium 4.8 Chloride 99 Carbon Dioxide 39 H BUN 25 H Creatinine 0.91 Glucose 121 H 228 H Calcium 9.7 (5) Fluid overload Hypervolemia type: unspecified Qualified Code(s): E87.70 - Fluid overload, unspecified (9) COPD (chronic obstructive pulmonary disease) COPD type: unspecified COPD Qualified Code(s): J44.9 - Chronic obstructive pulmonary disease, unspecified
--- NOTE | 2023-01-21 12:44 | Discharge Summary ---
Date of Service January 21, 2023 Admission HPI Per Admitting Provider Mr. Milner is a 52 year old unfortunate male that presented to the [facility] today with hypoxia. He states that over the past 3 days he has felt more SOB. He also reports 15 pound weight gain but does report taking his prescribed medications with compliance. CXR negative for acute cardiopulmonary process. Patient reports that his INR last night was 3.1; he reports that he did not take his Coumadin last evening. Patient denies fevers or chills. He has had numerous recent hospitalizations for similar systems. Last admission patient was evaluated by Urology and his urine culture at that time grew lactobacillus. PMH includes significant medicinal noncompliance, indwelling chronic fontaine catheter, chronic systolic CHF, HTN, HLD, hypomagnesemia, DM type 2 insulin- dependent, COPD, morbid obesity, depression with anxiety, and chronic anticoagulation, and tobacco abuse. Pt denies Lopez, dizziness, CP, palpitations, abdominal pain, N/V/D, abdominal pain, recent falls or trauma. Pt is sitting upright in his bedside hospital chair AAOx4 and answering questions appropriately in no apparent distress. Pt wearing supplemental O2, intermittent wheezing, no MAXWELL. Leukocytosis 13.04, initial lactate 2.2, Mg+ 1.5, procalcitonin negative. Patient will be admitted for further evaluation and management. Please see A/P for further details. Admission Exam Per Admitting Provider Physical Exam Physical Exam: Neuro: AAOx4, PERRLA, no aphagia, memory changes, CNII-XII grossly intact HEENT: head normocephalic, moist mucus membranes CV: S1/S2, (-) M/G/R, (-) edema, cap refill < 3 seconds Resp: Lungs coarse in lower lobes. Anterior clear GI: Abdomen S/NT/ND, Ax4 bowel sounds, (-) CVA tenderness Musculoskeletal: 5/5 B/L UE strength, 5/5 B/L LE strength. No gait disturbance Skin: (-) rashes , (-) erythema. Psych: euthymic mood Principal Diagnosis Acute on chronic heart failure with preserved ejection fraction Acute COPD exacerbation Urinary tract infection Acute on chronic respiratory failure with hypoxia Discharge Data Allergies Allergy/AdvReac Type Severity Reaction Status Date / Time cefepime Allergy Intermediate rash Verified 12/17/22 18:20 daptomycin Allergy Intermediate rash Verified 12/17/22 18:20 fentanyl Allergy Intermediate RASH/HIVES/SKIN Verified 12/17/22 18:20 REDNESS naloxone AdvReac Severe extremely Verified 12/17/22 18:20 sick acetaminophen [From Tylenol] AdvReac Intermediate IRRITATES Verified 12/17/22 18:20 & UPSET STOMACH ibuprofen AdvReac Intermediate Nausea Verified 12/17/22 18:20 valproic acid AdvReac Intermediate PANCREATITS Verified 12/17/22 18:20 Consultations 01/13/23 14:29 ED Decision to Admit Stat Procedures Performed Laboratory Results WBC 15.14 K/ul (4.8-10.8) H 01/21/23 10:21 RBC 4.81 M/uL (4.70-6.10) 01/21/23 10:21 Hgb 13.3 g/dl (14.0-18.0) L 01/21/23 10:21 Hct 42.5 % (42.0-52.0) 01/21/23 10:21 MCV 88.4 fL (80.0-100.0) 01/21/23 10:21 MCH 27.7 pg (25.0-34.0) 01/21/23 10:21 MCHC 31.3 g/dL (32.0-36.0) L 01/21/23 10:21 RDW Std Deviation 58.9 fL (36.4-46.3) H 01/21/23 10:21 RDW Coeff of Megan 18.5 % (11.5-14.5) H 01/21/23 10:21 Plt Count 237 K/uL (130-400) 01/21/23 10:21 MPV 10.0 fL (9.4-12.4) 01/21/23 10:21 Immature Gran % (Auto) 2.4 % 01/19/23 08:49 Neut % (Auto) 76.4 % 01/19/23 08:49 Lymph % (Auto) 16.4 % 01/19/23 08:49 [place] % (Auto) 4.1 % 01/19/23 08:49 Eos % (Auto) 0.2 % 01/19/23 08:49 Baso % (Auto) 0.5 % 01/19/23 08:49 Neut # (Auto) 15.00 K/uL (1.40-6.50) H 01/19/23 08:49 Lymph # (Auto) 3.21 K/uL (1.2-3.4) 01/19/23 08:49 [place] # (Auto) 0.80 K/uL (0.11-0.59) H 01/19/23 08:49 Eos # (Auto) 0.03 K/uL (0-0.50) 01/19/23 08:49 Baso # (Auto) 0.09 K/uL (0-0.2) 01/19/23 08:49 Immature Gran # (Auto) 0.48 K/uL (0.01-0.20) H 01/19/23 08:49 PT 18.6 Seconds (9.0-12.0) H 01/21/23 10:21 INR 1.8 (0.9-1.1) H 01/21/23 10:21 Sodium 138 mmol/L (136-145) 01/21/23 10:21 Potassium 4.8 mmol/L (3.5-5.1) 01/21/23 10:21 Chloride 99 mmol/L (98-107) 01/21/23 10:21 Carbon Dioxide 39 mmol/L (21-32) H 01/21/23 10:21 Anion Gap 0 (3-11) L 01/21/23 10:21 BUN 25 mg/dl (6-23) H 01/21/23 10:21 Creatinine 0.91 mg/dl (0.6-1.4) 01/21/23 10:21 Est Cr Clr Drug Dosing 174.7 ml/min 01/21/23 10:21 Est GFR ( Amer) 111.9 ml/min 01/21/23 10:21 Est GFR (Non-Af Amer) 96.6 ml/min 01/21/23 10:21 BUN/Creatinine Ratio 27.5 (10-20) H 01/21/23 10:21 Glucose 228 mg/dl (70-99(Fasting)) H 01/21/23 10:21 POC Glucose 145 mg/dl (70-99) H 01/21/23 11:29 Estimat Average Glucose 189 mg/dl 01/14/23 07:44 Hemoglobin A1c 8.2 % (4.5-5.6) H 01/14/23 07:44 Lactate 1.4 mmol/L (0.4-2.0) 01/13/23 14:33 Calcium 9.7 mg/dl (8.6-10.3) 01/21/23 10:21 Magnesium 2.2 mg/dl (1.7-2.4) 01/21/23 10:21 Total Bilirubin 1.0 mg/dl (0.2-1.0) 01/14/23 07:44 Direct Bilirubin 0.2 mg/dl (0-0.2) 01/13/23 12:43 AST 16 U/L (13-39) 01/14/23 07:44 ALT 14 U/L (7-52) 01/14/23 07:44 Alkaline Phosphatase 139 U/L (34-104) H 01/14/23 07:44 Troponin I High Sens 5.4 pg/ml (0-20) 01/13/23 12:43 B-Natriuretic Peptide 41 pg/ml (0-100) 01/13/23 12:43 Total Protein 6.8 gm/dl (6.0-8.3) 01/14/23 07:44 Albumin 3.6 gm/dl (3.4-5.0) 01/14/23 07:44 Globulin 3.2 gm/dl (2.5-4.0) 01/14/23 07:44 Albumin/Globulin Ratio 1.1 (0.9-2) 01/14/23 07:44 Procalcitonin 0.10 ng/ml (0-0.5) 01/13/23 12:43 Urine Color Yellow 01/13/23 12:43 Urine Appearance Clear (Clear) 01/13/23 12:43 Urine pH 5.5 (4.5-7.5) 01/13/23 12:43 Ur Specific [place] 1.012 (1.000-1.030) 01/13/23 12:43 Urine Protein Negative (Negative) 01/13/23 12:43 Urine Glucose (UA) Negative (Negative) 01/13/23 12:43 Urine Ketones Negative (Negative) 01/13/23 12:43 Urine Blood 2+ (Negative) H 01/13/23 12:43 Urine Nitrite Negative (Negative) 01/13/23 12:43 Urine Bilirubin Negative (Negative) 01/13/23 12:43 Urine Urobilinogen Negative (Negative) 01/13/23 12:43 Ur Leukocyte Esterase 2+ (Negative) H 01/13/23 12:43 Urine WBC (Auto) 10-30 /hpf (0-5) H 01/13/23 12:43 Urine RBC (Auto) 10-30 /hpf (0-4) H 01/13/23 12:43 U Hyaline Cast (Auto) 1-5 /lpf (0-5) 01/13/23 12:43 U Epithel Cells (Auto) 5-10 /lpf (0-5) H 01/13/23 12:43 Urine Bacteria (Auto) 1+ (Negative) H 01/13/23 12:43 Urine Mucus Present (None Prsent) A 01/13/23 12:43 Urine Yeast Budding (None Prsent) A 01/13/23 12:43 SARS-CoV-2 (PCR) NEGATIVE (Negative) 01/13/23 14:04 Influenza Type A (PCR) Negative (Neg) 01/13/23 14:04 Influenza Type B (PCR) Negative (Neg) 01/13/23 14:04 RSV (RT-PCR) Negative (Neg) 01/13/23 14:04 Impressions Chest X-Ray 01/13/23 12:43 XR chest 1V portable CLINICAL HISTORY: shortness of breath COMPARISON STUDY: Chest radiograph December 17, 2022. FINDINGS: No pneumothorax or pleural effusion is present. Cardiomegaly is unchanged. Interstitial prominence is unchanged. There is no consolidation to suggest pneumonia. There has been no significant change in appearance of the chest. IMPRESSION: No acute cardiopulmonary findings. No change in appearance of the chest. ACT 112: Negative or not required by law. Electronically signed by: Evelio Corbin M.D. 01/13/2023 1:16 PM Hospital Course (1) Acute on chronic heart failure with preserved ejection fraction: Volume overload secondary to above -CXR:No acute cardiopulmonary findings. No change in appearance of the chest. -IV Lasix transition to p.o. Weaned off of supplemental oxygen Continue fluid restriction Continue oral diuretics Advised to follow-up with cardiology as outpatient (2) Hypoxia: Weaned off of supplemental oxygen Maintain oxygen saturations between 88 to 92% given history of COPD Saturating well on room air (3) Hypomagnesemia: (4) 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: Continue insulin while hospitalized (5) Fluid overload: Management as above (6) BPH (benign prostatic hyperplasia): Continue home medication (7) Indwelling Fontaine catheter present: (8) Depression with anxiety: (9) COPD (chronic obstructive pulmonary disease): Minimal wheezing Plan Acute COPD exacerbation Ongoing tobacco use Counseled on multiple occasions to quit smoking Transition IV steroids to p.o. prednisone as able Weaned off of supplemental oxygen Maintain saturations 88 to 92% Plan to discharge on prednisone taper course Advised to quit smoking Also advised to follow-up with pulmonology as outpatient Chronic Anticoagulation: Supratherapeutic on presentation Takes Coumadin 2.5 on and , 5 mg all other days Compliant with Coumadin clinic outpatient Monitor INR Adjust Coumadin dose as needed Hypomagnesia: Replace electrolytes as needed Type 2 diabetes with insulin deficiency: Takes Lantus 100 Units QHS and Glipizide; hold Continue insulin while hospitalized Glycemic Pharmacy consultation BPH: Indwelling Fontaine catheter, chronic Complicated UTI due to indwelling Fontaine catheter-Enterococcus faecalis--pansensitive except tetracycline Urine culture grew Enterococcus IV Zosyn transition to Augmentin Depression with anxiety: on Duloxetine HLD: on Atorvastatin DVT Px: on Coumadin CODE STATUS Full code Total Time Total Time Spent Total Time Spent (In Minutes): 56 minutes Discharge Plan Discharge Items Patient Disposition: Home - Home Health Services Reason For Visit: SOB Discharge Diagnosis: Acute on chronic heart failure with preserved ejection fraction Acute COPD exacerbation Urinary tract infection Acute on chronic respiratory failure with hypoxia Activity: Per Instructions section Exercise/Sports: Gradually increase as tolerated Non-emergency contact: Primary Care Provider and [employer] Call non-emergency contact if: you have any medication questions, your symptoms worsen and your pain is concerning for you Follow-up/Referrals: Roberto Askew MD [Primary Care Provider] - (Date & Time 01/26/2023 11:00 AM Provider Aaron Colunga PA-C Department General Internal Medicine [facility] ) Jacob Penn DO [[employer]or] - (Date & Time 03/09/2023 4:00 PM Provider Jacob Penn DO Department Cardiology, 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 --- Quit smoking tobacco as advised --- Complete the antibiotic and prednisone taper course as prescribed Prednisone taper course: Start taking prednisone 40 mg daily for 2 days, then 30 mg daily for 2 days, then 20 mg daily for 2 days, then 10 mg daily for 2 days and stop. Seek immediate medical attention if your symptoms reoccur or worsen Please take all medications as instructed on discharge list below. Please call if you have any questions or problems. You can reach a [facility] hospitalist on duty at [facility] 24 hours a day by calling [phone] Call your Primary Care doctor if any of the following symptoms or problems start or get worse: * Shortness of breath or difficulty breathing * Wake up at night short of breath * Chest pain * Cough * Swelling of your hands, feet, or legs * More fatigued or tired with your normal activity * Palpitations - sudden fast heart beats WEIGHT * Weigh yourself every morning after using the bathroom. * Use the same scale. * Wear the same amount of clothing. * Write your weight down on a chart. * Call your Primary Care doctor if you gain more than 2-3 pounds in 1-2 days. MEDICATIONS * Use this discharge instruction sheet for medication instructions. * Take your medications at the time your doctor ordered. * Do not skip a dose of your medicines. * If you miss a dose of medicine, take it as soon as possible, but DO NOT DOUBLE A DOSE. * Read your medicine information when you get home. * Know all of the side effects of your medicine. If in doubt, ask your pharmacist * Call your Primary Care doctor's office if you have any side effects. * Be sure all of your doctors know what medicine and herbs you take (including cold, flu, and herbal medicine). Take the following with you to your follow-up doctor appointments: * Weight Chart * Medication List * List of questions Do not drink excessive alcohol, beer or wine. Pending Studies at Discharge: No Stand-Alone Forms: My [facility], Smoking Cessation Medications and DC Order Prescriptions: New amoxicillin-pot clavulanate 875-125 mg tablet 1 tab PO BID Qty: 4 0RF Continued promethazine 12.5 mg tablet 12.5 mg PO BID PRN (Reason: nausea and vomiting) Qty: 10 0RF tamsulosin [Flomax] 0.4 mg capsule 0.8 mg PO QAM Qty: 180 3RF polyethylene glycol 3350 [Miralax] 17 gram powder in packet 17 g PO QAM nitroglycerin [Nitrostat] 0.4 mg tablet, sublingual 0.4 mg Sublingual DIRECTED PRN (Reason: CHEST PAIN) Rx Instructions: PLACE ONE TABLET UNDER THE TONGUE EVERY 5 MINUTES FOR UP TO 3 DOSES OVER 15 MINUTES IF NEEDED FOR CHEST PAIN nystatin 100,000 unit/gram Powder 1 applic TOPICAL TID PRN (Reason: Skin Irritation) Rx Instructions: APPLY DIRECTED TO ABDOMINAL FOLDS cyclobenzaprine 10 mg Tablet 10 mg PO BID PRN (Reason: Muscle Spasm) ipratropium-albuterol 0.5 mg-3 mg(2.5 mg base)/3 mL Solution For Nebulization 3 ml INHALATION Q6H PRN (Reason: Shortness Of Breath Or Wheezing) docusate sodium 100 mg Capsule 100 mg PO BID duloxetine 60 mg capsule,delayed release(DR/EC) 60 mg PO DAILY famotidine 20 mg tablet 20 mg PO DAILY fluticasone propionate 50 mcg/actuation spray,suspension 2 spray Intranasal DAILY aspirin [Ecotrin Low Strength] 81 mg tablet,delayed release (DR/EC) 81 mg PO QAM finasteride 5 mg tablet 5 mg PO QAM metoprolol succinate 50 mg Tablet Extended Release 24 Hr 75 mg PO BID spironolactone 25 mg Tablet 25 mg PO QAM atorvastatin 80 mg tablet 80 mg PO QPM Rx Instructions: TAKE THIS MEDICATION EVERY AFTERNOON sennosides [senna] 8.6 mg Tablet 8.6 mg PO DAILY PRN (Reason: Constipation) folic acid 1 mg Tablet 1 mg PO QAM furosemide [Lasix] 40 mg tablet 40 mg PO BID albuterol sulfate 90 mcg/actuation Hfa Aerosol Inhaler 2 puff INHALATION Q4 PRN (Reason: Dyspnea) omeprazole 20 mg Capsule,Delayed Release(Dr/Ec) 20 mg PO DAILYBB gabapentin 800 mg tablet 800 mg PO TID buprenorphine HCl 8 mg tablet, sublingual 8 mg SUBLINGUAL TID Rx Instructions: Per Dr 1st glipizide 10 mg tablet 10 mg PO BID urea [Ureacin-20] 20 % Cream 1 applic TOPICAL BID magnesium oxide 400 mg (241.3 mg magnesium) tablet 400 mg PO DAILY ferrous sulfate 325 mg (65 mg iron) Tablet 325 mg PO QAM Rx Instructions: Take with breakfast hydroxyzine HCl 25 mg Tablet 25 mg PO QID PRN (Reason: Anxiety) ondansetron HCl 4 mg Tablet 4 mg PO Q8H PRN (Reason: NAUSEA/VOMITING) benzonatate 100 mg Capsule 100 mg PO TID PRN (Reason: cough) Qty: 10 0RF diclofenac sodium [Voltaren Arthritis Pain] 1 % Gel 2 g EXT BID Qty: 50 0RF dextromethorphan-guaifenesin 10-100 mg/5 mL Syrup 5 ml PO Q6H PRN (Reason: cough) Qty: 500 0RF potassium chloride 20 mEq tablet extended release 40 meq PO BID Qty: 60 0RF warfarin 5 mg tablet 2.5 mg PO [id number] Rx Instructions: TAKES SUN, TUES, WED, TH, & SAT EVENINGS. cholecalciferol (vitamin D3) 125 mcg (5,000 unit) Tablet 5,000 unit PO QAM Qty: 30 0RF codeine-guaifenesin 10-100 mg/5 mL liquid 5 ml PO TID PRN (Reason: cough) Qty: 120 0RF prednisone 10 mg tablet 10 mg PO DIRECTED Qty: 20 0RF Rx Instructions: Take 40 mg daily for 2days,then 30 mg daily for 2days,then 20 mg daily for 2days,then 10 mg daily for 2days & stop. Lactinex 1 million cell tablet,chewable 1 tab PO TID Qty: 30 0RF isosorbide dinitrate 30 mg tablet 30 mg PO DAILY warfarin 5 mg tablet 5 mg PO [id number] Rx Instructions: TAKES MON & FRI EVENINGS guaifenesin [Mucinex] 600 mg Tablet Extended Release 12hr 1,200 mg PO BID lorazepam 0.5 mg tablet 0.5 mg PO Q8 PRN (Reason: Anxiety) Qty: 6 0RF insulin glargine [Lantus Solostar U-100 Insulin] 100 unit/mL (3 mL) Insulin Pen 50 unit SC HS 30 Days Qty: 15 0RF Discharge Orders: Discharge Order (Routine); Ordered 01/21/23 Ordered By: Dipesh Pickering/Other Patient Handouts: A1C, Managing Type 2 Diabetes Admission Data Admit Date/Time: 01/13/23 14:42 Attending Provider: Dipesh Wright Admit Provider: Dipesh Wright Primary Care Provider: Roberto Askew Other Providers: Dipesh Wright
== END 2023-01-21 13:59 | disposition home or self-care (01) | DRG 291 ==
LOC: ED 12:20 → 2W 14:42 → SUATTDRO 14:42 → 2W 18:31

== ENCOUNTER 2023-01-28 17:17 | Inpatient (IN) ==
--- NOTE | 2023-01-28 18:09 | Emergency Department Note ---
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 pancreas is seen. Spleen: Unremarkable. Adrenals: Unremarkable. Kidneys and ureters: Nonobstructive nephrolithiasis is seen. Bladder: Fontaine catheter is seen. Reproductive organs: Unremarkable. Bowel: Unremarkable. Lymph nodes Retroperitoneal: Unremarkable. Pelvic: Prominent subcentimeter inguinal nodes are noted. Mesenteric: Unremarkable. Peritoneum: Normal. Vessels: Unremarkable. Abdominal wall: A fat-containing umbilical hernia is seen. Bones: Degenerative changes in the visualized spine. IMPRESSION: No acute abnormalities and in particular no evidence of acute fracture. ACT 112: Negative or not required by law. Electronically signed by: Armand Tobar M.D. 01/28/2023 7:[address] 01/28/23 18:04 CT cervical spine wo con CLINICAL HISTORY: Trauma TECHNIQUE: Multidetector row helical CT of the cervical spine was performed without administration of intravenous contrast. Coronal and sagittal reformations were obtained. Automated dose lowering techniques and/or adjustment according to patient size were utilized for this exam. Comparison: None available at the time of this dictation. FINDINGS: No acute fractures or subluxations are identified. The vertebral body heights and disk spaces are well maintained. The alignment is normal. Soft tissues are unremarkable. IMPRESSION: No evidence of acute bony injury. ACT 112: Negative or not required by law. Electronically signed by: Armand Tobar M.D. 01/28/2023 7:[address] 01/28/23 18:04 CT chest diagnostic w con CLINICAL HISTORY: Trauma TECHNIQUE: Multidetector row helical CT of the chest was performed with intravenous contrast. Coronal and sagittal reformations were obtained. Automated dose lowering techniques and/or adjustment according to patient size were utilized for this exam. Comparison: Comparison is made to CTA chest 10/31/2020 FINDINGS: Lungs and pleura: Atelectasis versus scarring is seen in the dependent portions of the lungs. Bronchial wall thickening is seen. Heart and pericardium: Heart size is normal. No pericardial effusion. Vessels: Unremarkable. Mediastinum and brenda: Unremarkable. Chest wall and lower neck: Gynecomastia is noted bilaterally. Abdomen: For findings below the diaphragm, please refer to CT of the abdomen dated the same. Bones: Unremarkable. IMPRESSION: No acute abnormalities and in particular no acute fracture. ACT 112: Negative or not required by law. Electronically signed by: Armand Tobar M.D. 01/28/2023 7:[address] 01/28/23 18:04 CT head/brain wo con CLINICAL HISTORY: Trauma Technique: Contiguous axial CT images of the head were acquired from the base of the skull to the vertex without intravenous contrast administration. Images were viewed in brain, subdural and bone windows. Automated dose lowering techniques and/or adjustment according to patient size were utilized for this exam. Comparison: Comparison is made to CT head 12/17/2022 Findings: The ventricles, basal cisterns, and cerebral sulci are normal. There is no acute intracranial hemorrhage or evidence of acute territorial infarction. Neither mass effect, shift of the midline structures, nor abnormal extra-axial fluid collections are shown. Right maxillary sinus opacification is seen. Left mastoid air cell opacification may represent mastoiditis. The orbits appear normal. There are no acute fractures of the calvaria or scalp swelling. Impression: No acute intracranial hemorrhage, no evidence of acute territorial infarction or other acute intracranial disease process. ACT 112: Negative or not required by law. Electronically signed by: Armand Tobar M.D. 01/28/2023 7:26 PM Discharge Plan Visit Data Chief Complaint: Leg Weakness, Bilateral Stated Complaint: fall, leg weakness ED Provider: Bladimir Portillo Discharge Problem: Leukocytosis, Acute UTI, Subtherapeutic international normalized ratio (INR), Fall, Superficial bruising of abdominal wall, Weakness Forms Stand Alone Forms: [facility] Prescriptions Prescriptions: No Action promethazine 12.5 mg tablet 12.5 mg PO BID PRN (Reason: nausea and vomiting) Qty: 10 0RF tamsulosin [Flomax] 0.4 mg capsule 0.8 mg PO QAM Qty: 180 3RF polyethylene glycol 3350 [Miralax] 17 gram powder in packet 17 g PO QAM nitroglycerin [Nitrostat] 0.4 mg tablet, sublingual 0.4 mg Sublingual DIRECTED PRN (Reason: CHEST PAIN) Rx Instructions: PLACE ONE TABLET UNDER THE TONGUE EVERY 5 MINUTES FOR UP TO 3 DOSES OVER 15 MINUTES IF NEEDED FOR CHEST PAIN nystatin 100,000 unit/gram Powder 1 applic TOPICAL TID PRN (Reason: Skin Irritation) Rx Instructions: APPLY DIRECTED TO ABDOMINAL FOLDS cyclobenzaprine 10 mg Tablet 10 mg PO BID PRN (Reason: Muscle Spasm) ipratropium-albuterol 0.5 mg-3 mg(2.5 mg base)/3 mL Solution For Nebulization 3 ml INHALATION Q6H PRN (Reason: Shortness Of Breath Or Wheezing) docusate sodium 100 mg Capsule 100 mg PO BID duloxetine 60 mg capsule,delayed release(DR/EC) 60 mg PO DAILY famotidine 20 mg tablet 20 mg PO DAILY fluticasone propionate 50 mcg/actuation spray,suspension 2 spray Intranasal DAILY aspirin [Ecotrin Low Strength] 81 mg tablet,delayed release (DR/EC) 81 mg PO QAM finasteride 5 mg tablet 5 mg PO QAM metoprolol succinate 50 mg Tablet Extended Release 24 Hr 75 mg PO BID spironolactone 25 mg Tablet 25 mg PO QAM atorvastatin 80 mg tablet 80 mg PO QPM Rx Instructions: TAKE THIS MEDICATION EVERY AFTERNOON sennosides [senna] 8.6 mg Tablet 8.6 mg PO DAILY PRN (Reason: Constipation) folic acid 1 mg Tablet 1 mg PO QAM furosemide [Lasix] 40 mg tablet 40 mg PO BID albuterol sulfate 90 mcg/actuation Hfa Aerosol Inhaler 2 puff INHALATION Q4 PRN (Reason: Dyspnea) omeprazole 20 mg Capsule,Delayed Release(Dr/Ec) 20 mg PO DAILYBB gabapentin 800 mg tablet 800 mg PO TID buprenorphine HCl 8 mg tablet, sublingual 8 mg SUBLINGUAL TID Rx Instructions: Per Dr 1st glipizide 10 mg tablet 10 mg PO BID urea [Ureacin-20] 20 % Cream 1 applic TOPICAL BID magnesium oxide 400 mg (241.3 mg magnesium) tablet 400 mg PO DAILY ferrous sulfate 325 mg (65 mg iron) Tablet 325 mg PO QAM Rx Instructions: Take with breakfast hydroxyzine HCl 25 mg Tablet 25 mg PO QID PRN (Reason: Anxiety) ondansetron HCl 4 mg Tablet 4 mg PO Q8H PRN (Reason: NAUSEA/VOMITING) benzonatate 100 mg Capsule 100 mg PO TID PRN (Reason: cough) Qty: 10 0RF diclofenac sodium [Voltaren Arthritis Pain] 1 % Gel 2 g EXT BID Qty: 50 0RF dextromethorphan-guaifenesin 10-100 mg/5 mL Syrup 5 ml PO Q6H PRN (Reason: cough) Qty: 500 0RF potassium chloride 20 mEq tablet extended release 40 meq PO BID Qty: 60 0RF warfarin 5 mg tablet 2.5 mg PO TUTH Rx Instructions: . cholecalciferol (vitamin D3) 125 mcg (5,000 unit) Tablet 5,000 unit PO QAM Qty: 30 0RF codeine-guaifenesin 10-100 mg/5 mL liquid 5 ml PO TID PRN (Reason: cough) Qty: 120 0RF Lactinex 1 million cell tablet,chewable 1 tab PO TID Qty: 30 0RF isosorbide dinitrate 30 mg tablet 30 mg PO DAILY warfarin 5 mg tablet 5 mg PO SUMOWEFRSA guaifenesin [Mucinex] 600 mg Tablet Extended Release 12hr 1,200 mg PO BID lorazepam 0.5 mg tablet 0.5 mg PO Q8 PRN (Reason: Anxiety) Qty: 6 0RF insulin glargine [Lantus Solostar U-100 Insulin] 100 unit/mL (3 mL) Insulin Pen 50 unit SC HS 30 Days Qty: 15 0RF Referrals Referrals: Roberto Askew MD [Primary Care Provider] -
[2023-01-28 18:29] LABS: Basophils # (auto) 0.06 K/uL (0-0.2); Basophils % (auto) 0.3 %; Eosinophils # (auto) 0.08 K/uL (0-0.50); Eosinophils % (auto) 0.3 %; Hematocrit (blood only) 37.6 % (42.0-52.0); Hemoglobin 12.2 g/dl (14.0-18.0); Immature Granulocytes # (auto) 0.27 K/uL (0.01-0.20); Immature Granulocytes % (auto) 1.2 %; Lymphocytes # (auto) 2.01 K/uL (1.2-3.4); Lymphocytes % (auto) 8.6 %; Mean Corpuscular Hemoglobin 28.2 pg (25.0-34.0); Mean Corpuscular Hgb Conc 32.4 g/dL (32.0-36.0); Mean Corpuscular Volume 86.8 fL (80.0-100.0); Mean Platelet Volume 10.4 fL (9.4-12.4); Monocytes # (auto) 1.38 K/uL (0.11-0.59); Monocytes % (auto) 5.9 %; Neutrophils # (auto) 19.56 K/uL (1.40-6.50); Neutrophils % (auto) 83.7 %; Platelet Count 300 K/uL (130-400); RDW Coefficient of Variation 18.8 % (11.5-14.5); Red Blood Count 4.33 M/uL (4.70-6.10); White Blood Count 23.36 K/ul (4.8-10.8)
[2023-01-28 18:36] LABS: Albumin Globulin Ratio 1.3 (0.9-2); Albumin Level 3.6 gm/dl (3.4-5.0); Bilirubin,Total 0.6 mg/dl (0.2-1.0); Calcium 9.7 mg/dl (8.6-10.3); Creatinine Clr Calc Pharmacy 176.8 ml/min; Globulin 2.8 gm/dl (2.5-4.0); Total Protein 6.4 gm/dl (6.0-8.3)
[2023-01-28 18:44] LABS: BUN Creatinine Ratio 12.5 (10-20); Est GFR (African American) 114.5 ml/min; Est GFR (Non-African American) 98.8 ml/min; Potassium 4.2 mmol/L (3.5-5.1)
[2023-01-28 18:51] LABS: Troponin I High Sensitivity 10.8 pg/ml (0-20)
[2023-01-28] MEDS ORDERED: OPTIRAY 320 500ml IV ONE (19:16)
[2023-01-28 19:17] LABS: INR 1.6 (0.9-1.1); Prothrombin Time 17.1 Seconds (9.0-12.0)
--- NOTE | 2023-01-28 19:26 | CT Scan Report ---
CT head/brain wo con CLINICAL HISTORY: Trauma Technique: Contiguous axial CT images of the head were acquired from the base of the skull to the radha rex without intravenous contrast administration. Images were viewed in brain, subdural [facility]. Automated dose lowering techniques and/or adjustment according to patient size were utilized for this exam. Comparison: Comparison is made to CT head 12/17/2022 Findings: The ventricles, basal cisterns, and cerebral sulci are normal. There is no acute intracranial hemorrh age or evidence of acute territorial infarction. Neither mass effect, shift of the midline structures , nor abnormal extra-axial fluid collections are shown. Right maxillary sinus opacification is seen. Left mastoid air cell opacification may represent mastoi ditis. The orbits appear normal. There are no acute fractures of the calvaria or scalp swelling. Impression: No acute intracranial hemorrhage, no evidence of acute territorial infarction or other acute intracra nial disease process. ACT 112: Negative or not required by law. Electronically signed by: Armand Tobar M.D. 01/28/2023 7:26 PM
--- NOTE | 2023-01-28 19:31 | CT Scan Report ---
CT cervical spine wo con CLINICAL HISTORY: Trauma TECHNIQUE: Multidetector row helical CT of the cervical spine was performed without administration of intravenous contrast. Coronal and sagittal reformations were obtained. Automated dose lowering techn iques and/or adjustment according to patient size were utilized for this exam. Comparison: None available at the time of this dictation. FINDINGS: No acute fractures or subluxations are identified. The vertebral body heights and disk spaces are wel l maintained. The alignment is normal. Soft tissues are unremarkable. IMPRESSION: No evidence of acute bony injury. ACT 112: Negative or not required by law. Electronically signed by: Armand Tobar M.D. 01/28/2023 7:29 PM
--- NOTE | 2023-01-28 19:36 | CT Scan Report ---
CT chest diagnostic w con CLINICAL HISTORY: Trauma TECHNIQUE: Multidetector row helical CT of the chest was performed with intravenous contrast. Coronal and sagittal reformations were obtained. Automated dose lowering techniques and/or adjustment accord ing to patient size were utilized for this exam. Comparison: Comparison is made to CTA chest 10/31/2020 FINDINGS: Lungs and pleura: Atelectasis versus scarring is seen in the dependent portions of the lungs. Bronchi al wall thickening is seen. Heart and pericardium: Heart size is normal. No pericardial effusion. Vessels: Unremarkable. Mediastinum and brenda: Unremarkable. Chest wall and lower neck: Gynecomastia is noted bilaterally. Abdomen: For findings below the diaphragm, please refer to CT of the abdomen dated the same. Bones: Unremarkable. IMPRESSION: No acute abnormalities and in particular no acute fracture. ACT 112: Negative or not required by law. Electronically signed by: Armand Tobar M.D. 01/28/2023 7:34 PM
--- NOTE | 2023-01-28 19:43 | CT Scan Report ---
CT abd pelvis IV con only CLINICAL HISTORY: Trauma TECHNIQUE: Helical axial images of the abdomen and pelvis were obtained and displayed. Automated dose lowering techniques and/or adjustment according to patient size were utilized for this exam. This e xam was performed with intravenous contrast. COMPARISON: Comparison is made to CT abdomen pelvis 10/26/2022 FINDINGS: Lower chest: For findings above the diaphragm, please see CT chest performed same day. Liver: Unremarkable. No focal lesions are seen. Gallbladder and biliary tree: The gallbladder is contracted. No intra- or extrahepatic biliary ductal dilation. Pancreas: Fatty replacement of the pancreas is seen. Spleen: Unremarkable. Adrenals: Unremarkable. Kidneys and ureters: Nonobstructive nephrolithiasis is seen. Bladder: Lloyd catheter is seen. Reproductive organs: Unremarkable. Bowel: Unremarkable. Lymph nodes Retroperitoneal: Unremarkable. Pelvic: Prominent subcentimeter inguinal nodes are noted. Mesenteric: Unremarkable. Peritoneum: Normal. Vessels: Unremarkable. Abdominal wall: A fat-containing umbilical hernia is seen. Bones: Degenerative changes in the visualized spine. IMPRESSION: No acute abnormalities and in particular no evidence of acute fracture. ACT 112: Negative or not required by law. Electronically signed by: Armand Tobar M.D. 01/28/2023 7:41 PM
[2023-01-28 20:10] LABS: Appearance Urine Clear (Clear); Bacteria Urine Automated 4+ (Negative); Bilirubin Urine Negative (Negative); Blood Urine 2+ (Negative); Color Urine Yellow; Epithelial Cell Urine Auto >30 /lpf (0-5); Glucose Urine UA Negative (Negative); Ketones Urine Negative (Negative); Leukocyte Esterase Urine 1+ (Negative); Nitrite Urine Positive (Negative); Protein Urine 1+ (Negative); Specific Gravity Urine > 1.045 (1.000-1.030); Urobilinogen Urine Negative (Negative); WBC Urine Automated >30 /hpf (0-5)
[2023-01-28] MEDS ORDERED: CIPROFLOXACIN / D5W 400 MG/200 ML BAG IV STA (20:34)
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
[2023-01-28] MEDS ORDERED: SODIUM CHLORIDE 0.9% 1000ML 1,000 ML IV ONE (21:09)
[2023-01-28] MEDS ORDERED: MEROPENEM 500 MG in SYRINGE 0 ML IV STA (21:12)
[2023-01-28 21:23] LABS: Partial Thromboplastin Ratio 1.2
[2023-01-28 21:27] LABS: Magnesium 1.9 mg/dl (1.7-2.4)
[2023-01-28] MEDS ORDERED: ALBUMIN 25% 25 GM/100 ML VIAL IV ONE (21:46)
[2023-01-28] MEDS: NICOTINE 21 MG/24 HR TDSY TD SCH (22:12)
[2023-01-29 00:58] LABS: Hematocrit (blood only) 33.7 % (42.0-52.0); Hemoglobin 10.6 g/dl (14.0-18.0)
[2023-01-29] MEDS ORDERED: DEXTROSE 50% 50 ML SYRINGE IV PRN (01:21)
[2023-01-29] MEDS ORDERED: hydrOXYzine HCl 25 MG TAB PO PRN (01:21)
[2023-01-29] MEDS ORDERED: GLUCOSE 10 TAB/TUBE PO PRN (01:21)
[2023-01-29] MEDS ORDERED: GLUCAGON FOR INJ 1 MG VIAL SQ PRN (01:21)
[2023-01-29] MEDS ORDERED: GLUCOSE 40% GEL 15 GM TUBE PO PRN (01:21)
[2023-01-29] MEDS ORDERED: CARBOHYDRATES FOR HYPOGLYCEMIA PO PRN (01:21)
[2023-01-29] MEDS: INSULIN ASPART PER UNIT CHARGE SC SCH ×5 (02:30→20:49)
[2023-01-29] MEDS: LANTUS PER UNIT CHARGE SC SCH ×3 (02:30→20:46)
[2023-01-29] MEDS: ACETAMINOPHEN 1,000 MG/100 ML VIAL IV PRN ×2 (02:31→14:26)
[2023-01-29] MEDS: buprenorphine HCL 8 MG SUBL SL SCH ×4 (02:31→20:44)
[2023-01-29] MEDS: PANTOprazole 40 MG TAB PO SCH (05:53)
[2023-01-29] MEDS: NYSTATIN POWDER 15GM BTL EXT PRN (05:54)
[2023-01-29] MEDS ORDERED: MEROPENEM 500 MG in SYRINGE 0 ML IV SCH (06:00)
[2023-01-29 07:20] LABS: Basophils # (auto) 0.06 K/uL (0-0.2); Basophils % (auto) 0.4 %; Eosinophils # (auto) 0.27 K/uL (0-0.50); Eosinophils % (auto) 1.6 %; Hematocrit (blood only) 33.6 % (42.0-52.0); Hemoglobin 10.7 g/dl (14.0-18.0); Immature Granulocytes # (auto) 0.13 K/uL (0.01-0.20); Immature Granulocytes % (auto) 0.8 %; Lymphocytes # (auto) 3.39 K/uL (1.2-3.4); Lymphocytes % (auto) 20.1 %; Mean Corpuscular Hemoglobin 28.2 pg (25.0-34.0); Mean Corpuscular Hgb Conc 31.8 g/dL (32.0-36.0); Mean Corpuscular Volume 88.4 fL (80.0-100.0); Mean Platelet Volume 10.1 fL (9.4-12.4); Monocytes % (auto) 7.1 %; Neutrophils # (auto) 11.85 K/uL (1.40-6.50); Platelet Count 238 K/uL (130-400); RDW Coefficient of Variation 18.8 % (11.5-14.5); RDW Standard Deviation 60.3 fL (36.4-46.3)
[2023-01-29 07:34] LABS: BUN Creatinine Ratio 13.4 (10-20); Calcium 9.1 mg/dl (8.6-10.3); Creatinine Clr Calc Pharmacy 197.6 ml/min; Est GFR (African American) 117.8 ml/min; Est GFR (Non-African American) 101.7 ml/min; Potassium 3.7 mmol/L (3.5-5.1)
[2023-01-29 07:41] LABS: INR 1.5 (0.9-1.1); Prothrombin Time 16.1 Seconds (9.0-12.0)
[2023-01-29] MEDS: CYCLOBENZAPRINE HCL 10 MG TAB PO PRN ×2 (08:06→20:48)
[2023-01-29] MEDS: DULoxetine HCL 60 MG CAP PO SCH (08:06)
[2023-01-29] MEDS: LORazepam 0.5 MG TAB PO PRN (08:06)
[2023-01-29] MEDS: FINASTERIDE 5 MG TAB PO SCH (08:06)
[2023-01-29] MEDS: FAMOTIDINE 20 MG TAB PO SCH (08:06)
[2023-01-29] MEDS: DOCUSATE SODIUM 100 MG CAP PO SCH ×2 (08:06→20:45)
[2023-01-29] MEDS: SENNA 8.6 MG TAB PO PRN (08:07)
[2023-01-29] MEDS: ISOSORBIDE DINITRATE 10 MG TAB PO SCH (08:07)
[2023-01-29] MEDS: ADVANCED PROBIOTIC 1250 MG CAPSULE PO SCH ×3 (08:07→20:46)
[2023-01-29] MEDS: TAMSULOSIN HCL 0.4 MG CAP PO SCH (08:07)
[2023-01-29] MEDS: FOLIC ACID 1 MG TAB PO SCH (08:07)
[2023-01-29] MEDS: GABAPENTIN 800 MG TAB PO SCH ×3 (08:07→20:46)
[2023-01-29] MEDS: FERROUS SULFATE 325 MG TAB PO SCH (08:07)
[2023-01-29] MEDS: DICLOFENAC SOD 1% GEL 100 GM TUBE EXT SCH ×2 (08:08→20:45)
[2023-01-29] MEDS: METOPROLOL SUCC 25MG EXT REL TAB PO SCH ×2 (08:08→20:47)
[2023-01-29] MEDS: FLUTICASONE PROPIONATE NA SPR 16 GM BTL SCH (08:09)
[2023-01-29] MEDS: POLYETHYLENE (MIRALAX) 17 GM PACK PO SCH (08:10)
[2023-01-29 11:36] LABS: iSTAT Creatinine 0.8 mg/dl (0.6-1.3); iSTAT Hemoglobin 12.6 g/dl (14.0-18.0); iSTAT Ionized Calcium 1.23 mmol/l (1.12-1.32); iSTAT Potassium 4.3 mmol/L (3.3-5.0)
[2023-01-29] MEDS: HYDROcodone/HOMATROPINE SYRUP 5MG/1.5MG 5ML UDP PO PRN (12:29)
[2023-01-29] MEDS: ATORVASTATIN 40 MG TAB PO SCH (12:30)
[2023-01-29] MEDS ORDERED: PIPERACILLIN/TAZOBACTAM 4.5 GM (over 30 mins) IV ONE (14:00)
--- NOTE | 2023-01-29 14:22 | Hospitalist Progress Note ---
Date of Service January 29, 2023 Assessment & Plan (1) Fall: (2) UTI (urinary tract infection) due to urinary indwelling catheter: (3) Generalized weakness: (4) Chronic anticoagulation: (5) (HFpEF) heart failure with preserved ejection fraction: (6) Subtherapeutic international normalized ratio (INR): (7) DM type 2 (diabetes mellitus, type 2): Plan This is a 52-year-old male who has significant past medical history of medical noncompliance, history of chronic opioid abuse, indwelling Lloyd catheter for which he has been unwilling to remove, chronic systolic CHF, HTN, HLD, insulin- dependent T2DM, COPD, morbid obesity, depression with anxiety, history of PE on chronic warfarin therapy who presents to ED secondary to fall that occurred last evening. Fall-tripped over his own feet without any warning symptoms Generalized weakness Left-sided abdominal hematoma Remains free from any symptoms No arrhythmias noted We will get PT and OT evaluation-May need placement UTI-catheter induced UTI Remote history of ESBL Recent history of Enterococcus faecalis UTI Has been getting intravenous Zosyn and meropenem has been discontinued Will await blood and urine culture COPD No exacerbation Minimal wheezing on examination Will start prednisone 40 mg for 5 days History of PE on chronic anticoagulation with subtherapeutic INR We will monitor INR while in the hospital Chronic HFpEF We will continue her home dose of Lasix and may need intravenous Lasix while in the hospital T2DM We will continue current dose of insulin Sliding scale insulin coverage Chronic opioid use Medical noncompliance CODE STATUS Full Admission and Anticipated Discharge Date Admission Date: January 28, 2023 Subjective 01/29/2023 The patient was seen and examined in medical telemetry unit He has had mechanical fall at home with bruising involving the left lateral abdominal wall on the lower side He has bruising but no fracture of the ribs and or any other problems Has wheezing but denies any cough and no shortness of breath Review of Systems Review of Systems: All systems reviewed and are unremarkable except as noted below Physical Exam Physical Exam: Sitting on a chair without any acute distress Constitutional: well developed, well nourished and + morbidly obese; not ill appearing Eyes: PERRL, conjunctivae normal, anicteric sclerae ENMT: external ear and nose normal, oropharynx normal Neck: trachea midline, no thyromegaly Respiratory: no respiratory distress Auscultation: + diminished lung sounds, + crackles (Bibasal) and + wheezes (Minimal wheezing all over) Cardiovascular: Rate/Rhythm: regular rate and regular rhythm; not tachycardic Heart Sounds: normal S1 and normal S2; no murmur Extremities: + edema (1+ edema bilaterally with chronic skin changes) Gastrointestinal (Abdomen): Inspection/Auscultation: + abdomen distended and normal bowel sounds Percussion/Palpation: abdomen soft; abdomen nontender Musculoskeletal: No acute arthritis involving any of the joint Skin: Extensive bruising involving the left lateral lower abdominal wall and flank Neurologic: normal touch/pain/proprioception and moves all extremities Psychiatric: A+Ox3, euthymic affect Lymphatic: no cervical or axillary lymphadenopathy Results & Data Results & Data Vital Signs (Past 12 Hours) Vital Signs Temp Pulse Pulse Resp BP Pulse Ox Pulse Ox 01/29/23 13:42 97 01/29/23 12:03 36.6 C 88 16 112/75 97 01/29/23 08:00 84 01/29/23 08:00 01/29/23 08:22 36.7 C 81 16 114/71 99 01/29/23 03:02 O2 Del Method O2 Flow Rate O2 Flow Rate 01/29/23 13:42 0 01/29/23 12:03 Room Air 01/29/23 08:00 01/29/23 08:00 Nasal Cannula 4 01/29/23 08:22 Nasal Cannula 4 01/29/23 03:02 Room Air, Nasal Cannula 4 Laboratory Results Short CBC 01/28/23 01/29/23 01/29/23 Range/Units 17:42 00:45 06:57 WBC 23.36 H 16.90 H (4.8-10.8) K/ul Hgb 12.2 L 10.6 L 10.7 L (14.0-18.0) g/dl Hct 37.6 L 33.7 L 33.6 L (42.0-52.0) % Plt Count 300 238 (130-400) K/uL BMP 01/28/23 01/29/23 17:42 06:57 Sodium 137 139 Potassium 4.2 3.7 Chloride 95 L 100 Carbon Dioxide 36 H 38 H BUN 11 11 Creatinine 0.88 0.82 Glucose 205 H 134 H Calcium 9.7 9.1 Liver Function 01/28/23 Range/Units 17:42 Total Bilirubin 0.6 (0.2-1.0) mg/dl AST 12 L (13-39) U/L ALT 19 (7-52) U/L Alkaline Phosphatase 109 H (34-104) U/L Albumin 3.6 (3.4-5.0) gm/dl Urine 01/28/23 Range/Units 19:56 Urine Color Yellow Urine Appearance Clear (Clear) Urine pH 7.0 (4.5-7.5) Ur Specific [place] > 1.045 H (1.000-1.030) Urine Protein 1+ H (Negative) Urine Glucose (UA) Negative (Negative) Medications Administered Current Inpatient Medications Atorvastatin Calcium (Atorvastatin 40 Mg Tab) 80 mg PO Q24H [facility] Stop: 02/28/23 13:59 Last Admin: 01/29/23 12:30 Dose: 80 mg Buprenorphine HCl (Buprenorphine Hcl 8 Mg Subl) 8 mg SL TID [facility] Stop: 02/28/23 01:20 Last Admin: 01/29/23 12:29 Dose: 8 mg Cyclobenzaprine HCl (Cyclobenzaprine Hcl 10 Mg Tab) 10 mg PO BID PRN PRN Reason: Muscle Spasm Stop: 02/28/23 01:20 Last Admin: 01/29/23 08:06 Dose: 10 mg Dextrose (Dextrose 50% 50 Ml Syringe) 25 - 50 ml IV UD PRN; Protocol PRN Reason: Hypoglycemia Protocol Stop: 02/28/23 01:20 Diclofenac Sodium (Diclofenac Sod 1% Gel 100 Gm Tube) 2 gm EXT BID [facility]; Protocol Stop: 02/28/23 08:59 Last Admin: 01/29/23 08:08 Dose: 2 gm Docusate Sodium (Docusate Sodium 100 Mg Cap) 100 mg PO BID [facility] Stop: 02/28/23 08:59 Last Admin: 01/29/23 08:06 Dose: 100 mg Duloxetine HCl (Duloxetine Hcl 60 Mg Cap) 60 mg PO DAILY [facility] Stop: 02/28/23 08:59 Last Admin: 01/29/23 08:06 Dose: 60 mg Famotidine (Famotidine 20 Mg Tab) 20 mg PO DAILY [facility] Stop: 02/28/23 08:59 Last Admin: 01/29/23 08:06 Dose: 20 mg Ferrous Sulfate (Ferrous Sulfate 325 Mg Tab) 325 mg PO QDB [facility] Stop: 02/28/23 07:29 Last Admin: 01/29/23 08:07 Dose: 325 mg Finasteride (Finasteride 5 Mg Tab) 5 mg PO QAM [facility] Stop: 02/28/23 08:59 Last Admin: 01/29/23 08:06 Dose: 5 mg Fluticasone Propionate (Fluticasone Propionate Na Spr 16 Gm Btl) 2 sprays NA DAILY [facility] Stop: 02/28/23 08:59 Last Admin: 01/29/23 08:09 Dose: 2 sprays Folic Acid (Folic Acid 1 Mg Tab) 1 mg PO QAM [facility] Stop: 02/28/23 08:59 Last Admin: 01/29/23 08:07 Dose: 1 mg Gabapentin (Gabapentin 800 Mg Tab) 800 mg PO TID [facility] Stop: 02/28/23 08:59 Last Admin: 01/29/23 12:29 Dose: 800 mg Glucagon (Glucagon For Inj 1 Mg Vial) 1 mg SQ UD PRN; Protocol PRN Reason: Hypoglycemia Protocol Stop: 02/28/23 01:20 Glucose (Glucose 10 Tab/Tube) 4 - 8 tab PO UD PRN; Protocol PRN Reason: Hypoglycemia Treatment Stop: 02/28/23 01:20 Glucose (Glucose 40% Gel 15 Gm Tube) 15 - 30 gm PO UD PRN; Protocol PRN Reason: Hypoglycemia Protocol Stop: 02/28/23 01:20 Hydrocodone Bit/Homatropine Methylb (Hydrocodone/Homatropine Syrup 5mg/1.5mg 5ml Udp) 5 ml PO Q6H PRN PRN Reason: Cough Stop: 02/12/23 10:33 Last Admin: 01/29/23 12:29 Dose: 5 ml Hydroxyzine HCl (Hydroxyzine Hcl 25 Mg Tab) 25 mg PO QID PRN PRN Reason: Anxiety Stop: 02/28/23 01:20 Acetaminophen (Ofirmev) 1,000 mg in 100 mls @ 400 mls/hr IV Q12H PRN PRN Reason: fever/pain Stop: 02/01/23 01:20 Last Infusion: 01/29/23 03:01 Dose: Infused Piperacillin Sod/Tazobactam (Sod 4.5 gm/ Dextrose) 120 mls @ 240 mls/hr IV TODAY@1400 ONE; Protocol Stop: 01/29/23 14:29 Piperacillin Sod/Tazobactam (Sod 4.5 gm/ Dextrose) 120 mls @ 30 mls/hr IV Q8H [facility]; Protocol Stop: 02/08/23 05:59 Insulin Aspart (Insulin Aspart Per Unit Charge) 0 units SC ACHS [facility] Stop: 02/28/23 02:14 Last Admin: 01/29/23 12:30 Dose: 5 units Insulin Glargine (Lantus Per Unit Charge) 25 units SC BID [facility] Stop: 02/28/23 02:14 Last Admin: 01/29/23 08:09 Dose: 25 units Isosorbide Dinitrate (Isosorbide Dinitrate 10 Mg Tab) 30 mg PO DAILY [facility] Stop: 02/28/23 08:59 Last Admin: 01/29/23 08:07 Dose: 30 mg Lactobacillus Acidophilus (Advanced Probiotic 1250 Mg Capsule) 2 cap PO TID [facility] Stop: 02/28/23 08:59 Last Admin: 01/29/23 12:29 Dose: 2 cap Lorazepam (Lorazepam 0.5 Mg Tab) 0.5 mg PO Q8 PRN PRN Reason: Anxiety Stop: 02/28/23 01:20 Last Admin: 01/29/23 08:06 Dose: 0.5 mg Metoprolol Succinate (Metoprolol Succ 25mg Ext Rel Tab) 75 mg PO BID [facility] Stop: 02/28/23 08:59 Last Admin: 01/29/23 08:08 Dose: 75 mg Miscellaneous (Remove Nicoderm Patch) 1 each N/A DAILY@0859 [facility] Stop: 02/28/23 08:58 Last Admin: 01/29/23 08:10 Dose: 1 each Miscellaneous (Carbohydrates For Hypoglycemia ) 15 - 30 gm PO UD PRN PRN Reason: Hypoglycemia Protocol Stop: 02/28/23 01:20 Nicotine (Nicotine 21 Mg/24 Hr Tdsy) 21 mg TD HS [facility] Stop: 02/27/23 21:39 Last Admin: 01/28/23 22:12 Dose: 21 mg Nystatin (Nystatin Powder 15gm Btl) 1 appln EXT QSHIFT PRN PRN Reason: Affected Skin Folds Stop: 02/28/23 03:08 Last Admin: 01/29/23 05:54 Dose: 1 appln Pantoprazole Sodium (Pantoprazole 40 Mg Tab) 40 mg PO DAILYBB [facility] Stop: 02/28/23 06:29 Last Admin: 01/29/23 05:53 Dose: 40 mg Polyethylene Glycol (Polyethylene (Miralax) 17 Gm Pack) 17 gm PO [facility] Stop: 02/28/23 08:59 Last Admin: 01/29/23 08:10 Dose: Not Given Prednisone (Prednisone 20 Mg Tab) 40 mg PO DAILY [facility] Stop: 02/28/23 13:59 Sennosides (Senna 8.6 Mg Tab) 8.6 mg PO DAILY PRN PRN Reason: Constipation Stop: 02/28/23 01:20 Last Admin: 01/29/23 08:07 Dose: 8.6 mg Tamsulosin HCl (Tamsulosin Hcl 0.4 Mg Cap) 0.8 mg PO [facility] Stop: 02/28/23 08:59 Last Admin: 01/29/23 08:07 Dose: 0.8 mg
[2023-01-29] MEDS: predniSONE 20 MG TAB PO SCH (17:04)
[2023-01-29] MEDS: PROMETHAZINE HCL 12.5 MG in SODIUM CHLORIDE 0.9% 50 ML IV PRN (18:25)
[2023-01-29] MEDS: PIPERACILLIN/TAZOBACTAM 4.5 GM CI (over 4 hours) IV SCH (20:44)
[2023-01-29] MEDS: NICOTINE 21 MG/24 HR TDSY TD SCH (20:48)
--- NOTE | 2023-01-30 00:20 | Electrocardiogram Report ---
Test Reason : Blood Pressure : / mmHG Vent. Rate : 091 BPM Atrial Rate : 091 BPM P-R Int : 148 ms QRS Dur : 098 ms QT Int : 344 ms P-R-T Axes : 043 040 073 degrees QTc Int : 423 ms Normal sinus rhythm Nonspecific ST abnormality Incomplete right bundle branch block Abnormal ECG When compared with ECG of 15-JAN-2023 06:52, No significant change was found Confirmed by Shaquille Canales ([id number]) on 01/30/2023 12:20:29 AM Referred By: REFERRED SELF Confirmed By:Shaquille Canales
[2023-01-30] MEDS: PIPERACILLIN/TAZOBACTAM 4.5 GM CI (over 4 hours) IV SCH (03:36)
[2023-01-30] MEDS: PANTOprazole 40 MG TAB PO SCH (05:27)
[2023-01-30 07:47] LABS: Basophils # (auto) 0.03 K/uL (0-0.2); Basophils % (auto) 0.2 %; Eosinophils # (auto) 0.03 K/uL (0-0.50); Eosinophils % (auto) 0.2 %; Hematocrit (blood only) 36.6 % (42.0-52.0); Hemoglobin 11.4 g/dl (14.0-18.0); Immature Granulocytes # (auto) 0.11 K/uL (0.01-0.20); Immature Granulocytes % (auto) 0.7 %; Lymphocytes % (auto) 7.3 %; Mean Corpuscular Hemoglobin 27.9 pg (25.0-34.0); Mean Corpuscular Hgb Conc 31.1 g/dL (32.0-36.0); Mean Corpuscular Volume 89.5 fL (80.0-100.0); Mean Platelet Volume 10.2 fL (9.4-12.4); Monocytes # (auto) 0.77 K/uL (0.11-0.59); Monocytes % (auto) 4.7 %; Neutrophils # (auto) 14.29 K/uL (1.40-6.50); Neutrophils % (auto) 86.9 %; Platelet Count 250 K/uL (130-400); RDW Coefficient of Variation 18.3 % (11.5-14.5); RDW Standard Deviation 59.6 fL (36.4-46.3); Red Blood Count 4.09 M/uL (4.70-6.10); White Blood Count 16.43 K/ul (4.8-10.8)
[2023-01-30 07:55] LABS: BUN Creatinine Ratio 14.8 (10-20); Calcium 9.8 mg/dl (8.6-10.3); Creatinine Clr Calc Pharmacy 200.6 ml/min; Est GFR (African American) 118.4 ml/min; Est GFR (Non-African American) 102.2 ml/min; Potassium 4.9 mmol/L (3.5-5.1)
[2023-01-30 08:08] LABS: INR 1.1 (0.9-1.1); Prothrombin Time 12.2 Seconds (9.0-12.0)
[2023-01-30] MEDS: LORazepam 0.5 MG TAB PO PRN ×2 (08:23→21:06)
[2023-01-30] MEDS: buprenorphine HCL 8 MG SUBL SL SCH ×3 (08:23→21:01)
[2023-01-30] MEDS: CYCLOBENZAPRINE HCL 10 MG TAB PO PRN ×2 (08:23→21:06)
[2023-01-30] MEDS: HYDROcodone/HOMATROPINE SYRUP 5MG/1.5MG 5ML UDP PO PRN ×3 (08:23→21:06)
[2023-01-30] MEDS: ACETAMINOPHEN 1,000 MG/100 ML VIAL IV PRN ×2 (08:23→21:04)
[2023-01-30] MEDS: METOPROLOL SUCC 25MG EXT REL TAB PO SCH ×2 (08:24→21:20)
[2023-01-30] MEDS: ADVANCED PROBIOTIC 1250 MG CAPSULE PO SCH ×3 (08:24→21:20)
[2023-01-30] MEDS: GABAPENTIN 800 MG TAB PO SCH ×3 (08:25→21:04)
[2023-01-30] MEDS: ISOSORBIDE DINITRATE 10 MG TAB PO SCH (08:25)
[2023-01-30] MEDS: POLYETHYLENE (MIRALAX) 17 GM PACK PO SCH (08:25)
[2023-01-30] MEDS: FAMOTIDINE 20 MG TAB PO SCH (08:25)
[2023-01-30] MEDS: DOCUSATE SODIUM 100 MG CAP PO SCH ×2 (08:25→21:04)
[2023-01-30] MEDS: FINASTERIDE 5 MG TAB PO SCH (08:26)
[2023-01-30] MEDS: FERROUS SULFATE 325 MG TAB PO SCH (08:26)
[2023-01-30] MEDS: DICLOFENAC SOD 1% GEL 100 GM TUBE EXT SCH ×2 (08:26→21:03)
[2023-01-30] MEDS: DULoxetine HCL 60 MG CAP PO SCH (08:26)
[2023-01-30] MEDS: SENNA 8.6 MG TAB PO PRN (08:26)
[2023-01-30] MEDS: FOLIC ACID 1 MG TAB PO SCH (08:26)
[2023-01-30] MEDS: TAMSULOSIN HCL 0.4 MG CAP PO SCH (08:26)
[2023-01-30] MEDS: FLUTICASONE PROPIONATE NA SPR 16 GM BTL SCH (08:27)
[2023-01-30] MEDS: LANTUS PER UNIT CHARGE SC SCH ×2 (08:27→21:16)
[2023-01-30] MEDS: INSULIN ASPART PER UNIT CHARGE SC SCH ×4 (08:27→21:02)
[2023-01-30] MEDS: predniSONE 20 MG TAB PO SCH (09:53)
[2023-01-30] MEDS: PROMETHAZINE HCL 12.5 MG in SODIUM CHLORIDE 0.9% 50 ML IV PRN ×2 (09:53→21:31)
--- NOTE | 2023-01-30 11:10 | Hospitalist Progress Note ---
Date of Service January 30, 2023 Assessment & Plan (1) Fall: (2) UTI (urinary tract infection) due to urinary indwelling catheter: (3) Generalized weakness: (4) Chronic anticoagulation: (5) (HFpEF) heart failure with preserved ejection fraction: (6) Subtherapeutic international normalized ratio (INR): (7) DM type 2 (diabetes mellitus, type 2): Plan This is a 52-year-old male who has significant past medical history of medical noncompliance, history of chronic opioid abuse, indwelling Lloyd catheter for which he has been unwilling to remove, chronic systolic CHF, HTN, HLD, insulin- dependent T2DM, COPD, morbid obesity, depression with anxiety, history of PE on chronic warfarin therapy who presents to ED secondary to fall that occurred last evening. Fall-tripped over his own feet without any warning symptoms Generalized weakness Left-sided abdominal hematoma--no evidence of continued bleeding. Hemoglobin remains stable Remains free from any symptoms No arrhythmias noted We will get PT and OT evaluation-May need placement Clinically better today without any significant symptoms at rest We will continue with PT and OT He is deciding to go to rehab UTI-catheter induced UTI Remote history of ESBL Recent history of Enterococcus faecalis UTI Has been getting intravenous Zosyn and meropenem has been discontinued Will await blood and urine culture Urine culture is growing Klebsiella pneumoniae which is sensitive to cephalosporins We will change antibiotic to intravenous ceftriaxone with a plan to oral Keflex on discharge COPD No exacerbation Minimal wheezing on examination Will start prednisone 40 mg for 5 days Wheezing is better and denies any shortness of breath History of PE on chronic anticoagulation with subtherapeutic INR We will monitor INR while in the hospital Chronic HFpEF We will continue her home dose of Lasix and may need intravenous Lasix while in the hospital Continue with usual dose of Lasix T2DM We will continue current dose of insulin Sliding scale insulin coverage Chronic opioid use Medical noncompliance DVT prophylaxis We will start Coumadin CODE STATUS Full Admission and Anticipated Discharge Date Admission Date: January 28, 2023 Subjective 01/29/2023 The patient was seen and examined in medical telemetry unit He has had mechanical fall at home with bruising involving the left lateral abdominal wall on the lower side He has bruising but no fracture of the ribs and or any other problems Has wheezing but denies any cough and no shortness of breath 01/30/2023 The patient was seen and examined in medical telemetry unit He has been feeling little better today His cough is better and wheezing is better to He wants to go to rehab Review of Systems Review of Systems: All systems reviewed and are unremarkable except as noted below Physical Exam Physical Exam: Sitting on a chair without any acute distress Constitutional: well developed, well nourished and + morbidly obese; not ill appearing Eyes: PERRL, conjunctivae normal, anicteric sclerae ENMT: external ear and nose normal, oropharynx normal Neck: trachea midline, no thyromegaly Respiratory: no respiratory distress Auscultation: + diminished lung sounds, + crackles (Bibasal) and + wheezes (Minimal wheezing all over) Cardiovascular: Rate/Rhythm: regular rate and regular rhythm; not tachycardic Heart Sounds: normal S1 and normal S2; no murmur Extremities: + edema (1+ edema bilaterally with chronic skin changes) Gastrointestinal (Abdomen): Inspection/Auscultation: + abdomen distended and normal bowel sounds Percussion/Palpation: abdomen soft; abdomen nontender Neurologic: normal touch/pain/proprioception and moves all extremities Psychiatric: A+Ox3, euthymic affect Lymphatic: no cervical or axillary lymphadenopathy Results & Data Results & Data Vital Signs (Past 12 Hours) Vital Signs Temp Pulse Pulse Resp BP Pulse Ox O2 Del Method 01/30/23 10:58 36.7 C 81 18 110/68 95 Room Air 01/30/23 08:00 69 01/30/23 07:33 36.6 C 76 18 127/76 98 Nasal Cannula 01/30/23 04:00 36.5 C 71 22 160/72 H 98 Nasal Cannula 01/29/23 23:25 74 O2 Flow Rate 01/30/23 10:58 01/30/23 08:00 01/30/23 07:33 4 01/30/23 04:00 4 01/29/23 23:25 Laboratory Results Short CBC 01/30/23 Range/Units 07:11 WBC 16.43 H (4.8-10.8) K/ul Hgb 11.4 L (14.0-18.0) g/dl Hct 36.6 L (42.0-52.0) % Plt Count 250 (130-400) K/uL BMP 01/30/23 07:11 Sodium 139 Potassium 4.9 D Chloride 100 Carbon Dioxide 39 H BUN 12 Creatinine 0.81 Glucose 171 H Calcium 9.8 Medications Administered Current Inpatient Medications Atorvastatin Calcium (Atorvastatin 40 Mg Tab) 80 mg PO Q24H [facility] Stop: 02/28/23 13:59 Last Admin: 01/29/23 12:30 Dose: 80 mg Buprenorphine HCl (Buprenorphine Hcl 8 Mg Subl) 8 mg SL TID [facility] Stop: 02/28/23 01:20 Last Admin: 01/30/23 08:23 Dose: 8 mg Cyclobenzaprine HCl (Cyclobenzaprine Hcl 10 Mg Tab) 10 mg PO BID PRN PRN Reason: Muscle Spasm Stop: 02/28/23 01:20 Last Admin: 01/30/23 08:23 Dose: 10 mg Dextrose (Dextrose 50% 50 Ml Syringe) 25 - 50 ml IV UD PRN; Protocol PRN Reason: Hypoglycemia Protocol Stop: 02/28/23 01:20 Diclofenac Sodium (Diclofenac Sod 1% Gel 100 Gm Tube) 2 gm EXT BID [facility]; Prot ocol Stop: 02/28/23 08:59 Last Admin: 01/30/23 08:26 Dose: 2 gm Docusate Sodium (Docusate Sodium 100 Mg Cap) 100 mg PO BID [facility] Stop: 02/28/23 08:59 Last Admin: 01/30/23 08:25 Dose: 100 mg Duloxetine HCl (Duloxetine Hcl 60 Mg Cap) 60 mg PO DAILY [facility] Stop: 02/28/23 08:59 Last Admin: 01/30/23 08:26 Dose: 60 mg Famotidine (Famotidine 20 Mg Tab) 20 mg PO DAILY [facility] Stop: 02/28/23 08:59 Last Admin: 01/30/23 08:25 Dose: 20 mg Ferrous Sulfate (Ferrous Sulfate 325 Mg Tab) 325 mg PO QDB [facility] Stop: 02/28/23 07:29 Last Admin: 01/30/23 08:26 Dose: 325 mg Finasteride (Finasteride 5 Mg Tab) 5 mg PO QAM [facility] Stop: 02/28/23 08:59 Last Admin: 01/30/23 08:26 Dose: 5 mg Fluticasone Propionate (Fluticasone Propionate Na Spr 16 Gm Btl) 2 sprays NA DAILY [facility] Stop: 02/28/23 08:59 Last Admin: 01/30/23 08:27 Dose: Not Given Folic Acid (Folic Acid 1 Mg Tab) 1 mg PO QAM [facility] Stop: 02/28/23 08:59 Last Admin: 01/30/23 08:26 Dose: 1 mg Gabapentin (Gabapentin 800 Mg Tab) 800 mg PO TID [facility] Stop: 02/28/23 08:59 Last Admin: 01/30/23 08:25 Dose: 800 mg Glucagon (Glucagon For Inj 1 Mg Vial) 1 mg SQ UD PRN; Protocol PRN Reason: Hypoglycemia Protocol Stop: 02/28/23 01:20 Glucose (Glucose 10 Tab/Tube) 4 - 8 tab PO UD PRN; Protocol PRN Reason: Hypoglycemia Treatment Stop: 02/28/23 01:20 Glucose (Glucose 40% Gel 15 Gm Tube) 15 - 30 gm PO UD PRN; Protocol PRN Reason: Hypoglycemia Protocol Stop: 02/28/23 01:20 Hydrocodone Bit/Homatropine Methylb (Hydrocodone/Homatropine Syrup 5mg/1.5mg 5ml Udp) 5 ml PO Q6H PRN PRN Reason: Cough Stop: 02/12/23 10:33 Last Admin: 01/30/23 08:23 Dose: 5 ml Hydroxyzine HCl (Hydroxyzine Hcl 25 Mg Tab) 25 mg PO QID PRN PRN Reason: Anxiety Stop: 02/28/23 01:20 Acetaminophen (Ofirmev) 1,000 mg in 100 mls @ 400 mls/hr IV Q12H PRN PRN Reason: fever/pain Stop: 02/01/23 01:20 Last Infusion: 01/30/23 08:40 Dose: Infused Promethazine HCl 12.5 mg/ (Sodium Chloride) 50.5 mls @ 202 mls/hr IV Q6H PRN PRN Reason: Nausea And Vomiting Stop: 02/28/23 17:42 Last Infusion: 01/30/23 10:10 Dose: Infused Ceftriaxone Sodium 2,000 mg/ (Dextrose) 70 mls @ 140 mls/hr IV Q24H [facility] Stop: 02/09/23 11:29 Insulin Aspart (Insulin Aspart Per Unit Charge) 0 units SC ACHS [facility] Stop: 02/28/23 02:14 Last Admin: 01/30/23 08:27 Dose: 6 units Insulin Glargine (Lantus Per Unit Charge) 25 units SC BID [facility] Stop: 02/28/23 02:14 Last Admin: 01/30/23 08:27 Dose: 25 units Isosorbide Dinitrate (Isosorbide Dinitrate 10 Mg Tab) 30 mg PO DAILY [facility] Stop: 02/28/23 08:59 Last Admin: 01/30/23 08:25 Dose: 30 mg Lactobacillus Acidophilus (Advanced Probiotic 1250 Mg Capsule) 2 cap PO TID [facility] Stop: 02/28/23 08:59 Last Admin: 01/30/23 08:24 Dose: 2 cap Lorazepam (Lorazepam 0.5 Mg Tab) 0.5 mg PO Q8 PRN PRN Reason: Anxiety Stop: 02/28/23 01:20 Last Admin: 01/30/23 08:23 Dose: 0.5 mg Metoprolol Succinate (Metoprolol Succ 25mg Ext Rel Tab) 75 mg PO BID [facility] Stop: 02/28/23 08:59 Last Admin: 01/30/23 08:24 Dose: 75 mg Miscellaneous (Remove Nicoderm Patch) 1 each N/A DAILY@0859 [facility] Stop: 02/28/23 08:58 Last Admin: 01/30/23 08:27 Dose: 1 each Miscellaneous (Carbohydrates For Hypoglycemia ) 15 - 30 gm PO UD PRN PRN Reason: Hypoglycemia Protocol Stop: 02/28/23 01:20 Nicotine (Nicotine 21 Mg/24 Hr Tdsy) 21 mg TD HS [facility] Stop: 02/27/23 21:39 Last Admin: 01/29/23 20:48 Dose: 21 mg Nystatin (Nystatin Powder 15gm Btl) 1 appln EXT QSHIFT PRN PRN Reason: Affected Skin Folds Stop: 02/28/23 03:08 Last Admin: 01/29/23 05:54 Dose: 1 appln Pantoprazole Sodium (Pantoprazole 40 Mg Tab) 40 mg PO DAILYBB [facility] Stop: 02/28/23 06:29 Last Admin: 01/30/23 05:27 Dose: 40 mg Polyethylene Glycol (Polyethylene (Miralax) 17 Gm Pack) 17 gm PO QAM [facility] Stop: 02/28/23 08:59 Last Admin: 01/30/23 08:25 Dose: 17 gm Prednisone (Prednisone 20 Mg Tab) 40 mg PO DAILY [facility] Stop: 02/28/23 13:59 Last Admin: 01/30/23 09:53 Dose: 40 mg Sennosides (Senna 8.6 Mg Tab) 8.6 mg PO DAILY PRN PRN Reason: Constipation Stop: 02/28/23 01:20 Last Admin: 01/30/23 08:26 Dose: 8.6 mg Tamsulosin HCl (Tamsulosin Hcl 0.4 Mg Cap) [facility] Stop: 02/28/23 08:59 Last Admin: 01/30/23 08:26 Dose: 0.8 mg Warfarin Sodium (Warfarin Sod 5 Mg Tab) 5 mg PO [id number]@1600 [facility] Stop: 03/01/23 15:59 Warfarin Sodium (Warfarin Sod 2.5 Mg Tab) 2.5 mg PO [id number]@1600 [facility] Stop: 03/04/23 15:59
[2023-01-30] MEDS: cefTRIAXone SODIUM 2,000 MG in DEXTROSE 5% 50 ML IV SCH (12:27)
[2023-01-30] MEDS: ATORVASTATIN 40 MG TAB PO SCH (14:02)
[2023-01-30] MEDS: WARFARIN SOD 5 MG TAB PO SCH (17:15)
[2023-01-30] MEDS ORDERED: ALBUT/IPRATROP 3MG/0.5MG NEB 3 ML VIAL NEB STA (20:36)
[2023-01-30] MEDS: NICOTINE 21 MG/24 HR TDSY TD SCH (21:46)
[2023-01-31] MEDS: HYDROcodone/HOMATROPINE SYRUP 5MG/1.5MG 5ML UDP PO PRN ×4 (03:01→21:49)
[2023-01-31] MEDS: PANTOprazole 40 MG TAB PO SCH (05:58)
[2023-01-31] MEDS: CYCLOBENZAPRINE HCL 10 MG TAB PO PRN ×2 (07:39→20:26)
[2023-01-31] MEDS: FERROUS SULFATE 325 MG TAB PO SCH (07:39)
[2023-01-31] MEDS: LORazepam 0.5 MG TAB PO PRN ×2 (07:39→20:57)
[2023-01-31] MEDS: LANTUS PER UNIT CHARGE SC SCH ×2 (08:16→20:49)
[2023-01-31] MEDS: INSULIN ASPART PER UNIT CHARGE SC SCH ×4 (08:17→20:49)
[2023-01-31] MEDS: ACETAMINOPHEN 1,000 MG/100 ML VIAL IV PRN ×2 (08:20→21:49)
[2023-01-31 08:35] LABS: Calcium 10.1 mg/dl (8.6-10.3); Creatinine Clr Calc Pharmacy 208.2 ml/min; Est GFR (African American) 119.7 ml/min; Est GFR (Non-African American) 103.2 ml/min; Potassium 4.4 mmol/L (3.5-5.1)
[2023-01-31 09:13] LABS: Basophils # (auto) 0.07 K/uL (0-0.2); Basophils % (auto) 0.4 %; Eosinophils # (auto) 0.18 K/uL (0-0.50); Eosinophils % (auto) 1.1 %; Hemoglobin 11.3 g/dl (14.0-18.0); Immature Granulocytes % (auto) 0.6 %; Lymphocytes # (auto) 3.73 K/uL (1.2-3.4); Lymphocytes % (auto) 22.2 %; Mean Corpuscular Hemoglobin 28.1 pg (25.0-34.0); Mean Corpuscular Hgb Conc 31.4 g/dL (32.0-36.0); Mean Corpuscular Volume 89.6 fL (80.0-100.0); Mean Platelet Volume 11.1 fL (9.4-12.4); Monocytes # (auto) 1.04 K/uL (0.11-0.59); Monocytes % (auto) 6.2 %; Neutrophils # (auto) 11.68 K/uL (1.40-6.50); Neutrophils % (auto) 69.5 %; Platelet Count 225 K/uL (130-400); Polychromasia 1+; RDW Coefficient of Variation 18.4 % (11.5-14.5); Red Blood Count 4.02 M/uL (4.70-6.10)
[2023-01-31] MEDS: FAMOTIDINE 20 MG TAB PO SCH (09:19)
[2023-01-31] MEDS: ADVANCED PROBIOTIC 1250 MG CAPSULE PO SCH ×3 (09:19→20:56)
[2023-01-31] MEDS: GABAPENTIN 800 MG TAB PO SCH ×3 (09:19→20:29)
[2023-01-31] MEDS: ISOSORBIDE DINITRATE 10 MG TAB PO SCH (09:20)
[2023-01-31] MEDS: predniSONE 20 MG TAB PO SCH (09:21)
[2023-01-31] MEDS: TAMSULOSIN HCL 0.4 MG CAP PO SCH (09:21)
[2023-01-31] MEDS: DOCUSATE SODIUM 100 MG CAP PO SCH ×2 (09:22→20:28)
[2023-01-31] MEDS: FOLIC ACID 1 MG TAB PO SCH (09:22)
[2023-01-31] MEDS: METOPROLOL SUCC 25MG EXT REL TAB PO SCH ×2 (09:22→20:56)
[2023-01-31] MEDS: DICLOFENAC SOD 1% GEL 100 GM TUBE EXT SCH ×2 (09:22→20:27)
[2023-01-31] MEDS: buprenorphine HCL 8 MG SUBL SL SCH ×3 (09:28→20:26)
[2023-01-31] MEDS: DULoxetine HCL 60 MG CAP PO SCH (09:29)
[2023-01-31] MEDS: FLUTICASONE PROPIONATE NA SPR 16 GM BTL SCH (09:29)
[2023-01-31] MEDS: POLYETHYLENE (MIRALAX) 17 GM PACK PO SCH (09:31)
[2023-01-31] MEDS: FINASTERIDE 5 MG TAB PO SCH (10:21)
[2023-01-31] MEDS: NICOTINE 21 MG/24 HR TDSY TD SCH (10:23)
[2023-01-31] MEDS: ALBUTEROL HFA 8 GM INHALER INH PRN ×2 (10:24→22:55)
[2023-01-31] MEDS: cefTRIAXone SODIUM 2,000 MG in DEXTROSE 5% 50 ML IV SCH (11:27)
[2023-01-31] MEDS: FUROSEMIDE 40 MG/4 ML VIAL IV SCH ×2 (12:28→20:53)
--- NOTE | 2023-01-31 12:35 | Hospitalist Progress Note ---
Date of Service January 31, 2023 Assessment & Plan (1) Fall: (2) UTI (urinary tract infection) due to urinary indwelling catheter: (3) Generalized weakness: (4) Chronic anticoagulation: (5) (HFpEF) heart failure with preserved ejection fraction: (6) Subtherapeutic international normalized ratio (INR): (7) DM type 2 (diabetes mellitus, type 2): Plan This is a 52-year-old male who has significant past medical history of medical noncompliance, history of chronic opioid abuse, indwelling Lloyd catheter for which he has been unwilling to remove, chronic systolic CHF, HTN, HLD, insulin- dependent T2DM, COPD, morbid obesity, depression with anxiety, history of PE on chronic warfarin therapy who presents to ED secondary to fall that occurred last evening. Fall-tripped over his own feet without any warning symptoms Generalized weakness Left-sided abdominal hematoma--no evidence of continued bleeding. Hemoglobin remains stable Remains free from any symptoms No arrhythmias noted We will get PT and OT evaluation-May need placement Clinically better today without any significant symptoms at rest We will continue with PT and OT He is deciding to go to rehab Remains medically stable and awaiting PT evaluation UTI-catheter induced UTI Remote history of ESBL Recent history of Enterococcus faecalis UTI Has been getting intravenous Zosyn and meropenem has been discontinued Will await blood and urine culture Urine culture is growing Klebsiella pneumoniae which is sensitive to cephalosporins We will change antibiotic to intravenous ceftriaxone with a plan to oral Keflex on discharge No urinary symptom COPD No exacerbation Minimal wheezing on examination Will start prednisone 40 mg for 5 days Wheezing is better and denies any shortness of breath Seems to be better with decreasing cough History of PE on chronic anticoagulation with subtherapeutic INR We will monitor INR while in the hospital Chronic HFpEF We will continue her home dose of Lasix and may need intravenous Lasix while in the hospital Continue with usual dose of Lasix His Lasix will be given intravenously 40-minute twice a day while he is in the hospital Monitor PRP T2DM We will continue current dose of insulin Sliding scale insulin coverage Chronic opioid use Medical noncompliance DVT prophylaxis We will start Coumadin CODE STATUS Full Admission and Anticipated Discharge Date Admission Date: January 28, 2023 Subjective 01/29/2023 The patient was seen and examined in medical telemetry unit He has had mechanical fall at home with bruising involving the left lateral abdominal wall on the lower side He has bruising but no fracture of the ribs and or any other problems Has wheezing but denies any cough and no shortness of breath 01/30/2023 The patient was seen and examined in medical telemetry unit He has been feeling little better today His cough is better and wheezing is better to He wants to go to rehab 01/31/2023 The patient was seen and examined in medical telemetry unit He has been complaining of more wheezing but no shortness of breath at rest Cough is decreased and he has been saturating normally on room air Review of Systems Review of Systems: All systems reviewed and are unremarkable except as noted below Physical Exam Physical Exam: Sitting on a chair without any acute distress Constitutional: well developed, well nourished and + morbidly obese; not ill appearing Eyes: PERRL, conjunctivae normal, anicteric sclerae ENMT: external ear and nose normal, oropharynx normal Neck: trachea midline, no thyromegaly Respiratory: no respiratory distress Auscultation: + diminished lung sounds, + crackles (Bibasal) and + wheezes (Minimal wheezing all over) Cardiovascular: Rate/Rhythm: regular rate and regular rhythm; not tachycardic Heart Sounds: normal S1 and normal S2; no murmur Extremities: + edema (1+ edema bilaterally with chronic skin changes) Gastrointestinal (Abdomen): Inspection/Auscultation: + abdomen distended and normal bowel sounds Percussion/Palpation: abdomen soft; abdomen nontender Neurologic: normal touch/pain/proprioception and moves all extremities Psychiatric: A+Ox3, euthymic affect Lymphatic: no cervical or axillary lymphadenopathy Results & Data Results & Data Vital Signs (Past 12 Hours) Vital Signs Temp Pulse Resp BP BP Pulse Ox O2 Del Method 01/31/23 11:28 36.8 C 79 18 114/79 96 Room Air 01/31/23 08:00 36.6 C 74 18 126/74 100 Room Air 01/31/23 04:00 36.4 C 73 20 187/69 H 100 Nasal Cannula O2 Flow Rate 01/31/23 11:28 01/31/23 08:00 01/31/23 04:00 4 Laboratory Results Short CBC 01/31/23 Range/Units 07:43 WBC 16.80 H (4.8-10.8) K/ul Hgb 11.3 L (14.0-18.0) g/dl Hct 36.0 L (42.0-52.0) % Plt Count 225 (130-400) K/uL BMP 01/31/23 07:43 Sodium 140 Potassium 4.4 Chloride 101 Carbon Dioxide 39 H BUN 15 Creatinine 0.79 Glucose 167 H Calcium 10.1 Medications Administered Current Inpatient Medications Albuterol (Albuterol Hfa 8 Gm Inhaler) 2 puffs INH Q4R PRN PRN Reason: Dyspnea Stop: 03/02/23 10:59 Last Admin: 01/31/23 10:24 Dose: 2 puffs Atorvastatin Calcium (Atorvastatin 40 Mg Tab) 80 mg PO Q24H [facility] Stop: 02/28/23 13:59 Last Admin: 01/30/23 14:02 Dose: 80 mg Buprenorphine HCl (Buprenorphine Hcl 8 Mg Subl) 8 mg SL TID [facility] Stop: 02/28/23 01:20 Last Admin: 01/31/23 09:28 Dose: 8 mg Cyclobenzaprine HCl (Cyclobenzaprine Hcl 10 Mg Tab) 10 mg PO BID PRN PRN Reason: Muscle Spasm Stop: 02/28/23 01:20 Last Admin: 01/31/23 07:39 Dose: 10 mg Dextrose (Dextrose 50% 50 Ml Syringe) 25 - 50 ml IV UD PRN; Protocol PRN Reason: Hypoglycemia Protocol Stop: 02/28/23 01:20 Diclofenac Sodium (Diclofenac Sod 1% Gel 100 Gm Tube) 2 gm EXT BID EMPERATRIZ; Protocol Stop: 02/28/23 08:59 Last Admin: 01/31/23 09:22 Dose: 2 gm Docusate Sodium (Docusate Sodium 100 Mg Cap) 100 mg PO BID [facility] Stop: 02/28/23 08:59 Last Admin: 01/31/23 09:22 Dose: 100 mg Duloxetine HCl (Duloxetine Hcl 60 Mg Cap) 60 mg PO DAILY [facility] Stop: 02/28/23 08:59 Last Admin: 01/31/23 09:29 Dose: 60 mg Famotidine (Famotidine 20 Mg Tab) 20 mg PO DAILY [facility] Stop: 02/28/23 08:59 Last Admin: 01/31/23 09:19 Dose: 20 mg Ferrous Sulfate (Ferrous Sulfate 325 Mg Tab) 325 mg PO QDB [facility] Stop: 02/28/23 07:29 Last Admin: 01/31/23 07:39 Dose: 325 mg Finasteride (Finasteride 5 Mg Tab) 5 mg PO QAM [facility] Stop: 02/28/23 08:59 Last Admin: 01/31/23 10:21 Dose: 5 mg Fluticasone Propionate (Fluticasone Propionate Na Spr 16 Gm Btl) 2 sprays NA DAILY [facility] Stop: 02/28/23 08:59 Last Admin: 01/31/23 09:29 Dose: 2 sprays Folic Acid (Folic Acid 1 Mg Tab) 1 mg PO QAM [facility] Stop: 02/28/23 08:59 Last Admin: 01/31/23 09:22 Dose: 1 mg Furosemide (Furosemide 40 Mg/4 Ml Vial) 40 mg IV BID [facility] Stop: 03/02/23 11:59 Last Admin: 01/31/23 12:28 Dose: 40 mg Gabapentin (Gabapentin 800 Mg Tab) 800 mg PO TID [facility] Stop: 02/28/23 08:59 Last Admin: 01/31/23 09:19 Dose: 800 mg Glucagon (Glucagon For Inj 1 Mg Vial) 1 mg SQ UD PRN; Protocol PRN Reason: Hypoglycemia Protocol Stop: 02/28/23 01:20 Glucose (Glucose 10 Tab/Tube) 4 - 8 tab PO UD PRN; Protocol PRN Reason: Hypoglycemia Treatment Stop: 02/28/23 01:20 Glucose (Glucose 40% Gel 15 Gm Tube) 15 - 30 gm PO UD PRN; Protocol PRN Reason: Hypoglycemia Protocol Stop: 02/28/23 01:20 Hydrocodone Bit/Homatropine Methylb (Hydrocodone/Homatropine Syrup 5mg/1.5mg 5ml Udp) 5 ml PO Q6H PRN PRN Reason: Cough Stop: 02/12/23 10:33 Last Admin: 01/31/23 09:18 Dose: 5 ml Hydroxyzine HCl (Hydroxyzine Hcl 25 Mg Tab) 25 mg PO QID PRN PRN Reason: Anxiety Stop: 02/28/23 01:20 Acetaminophen (Ofirmev) 1,000 mg in 100 mls @ 400 mls/hr IV Q12H PRN PRN Reason: fever/pain Stop: 02/01/23 01:20 Last Infusion: 01/31/23 09:17 Dose: Infused Promethazine HCl 12.5 mg/ (Sodium Chloride) 50.5 mls @ 202 mls/hr IV Q6H PRN PRN Reason: Nausea And Vomiting Stop: 02/28/23 17:42 Last Infusion: 01/30/23 21:48 Dose: Infused Ceftriaxone Sodium 2,000 mg/ (Dextrose) 70 mls @ 140 mls/hr IV Q24H [facility] Stop: 02/09/23 11:29 Last Admin: 01/31/23 11:27 Dose: 140 mls/hr Insulin Aspart (Insulin Aspart Per Unit Charge) 0 units SC ACHS [facility] Stop: 02/28/23 02:14 Last Admin: 01/31/23 12:28 Dose: 4 units Insulin Glargine (Lantus Per Unit Charge) 25 units SC BID [facility] Stop: 02/28/23 02:14 Last Admin: 01/31/23 08:16 Dose: 25 units Isosorbide Dinitrate (Isosorbide Dinitrate 10 Mg Tab) 30 mg PO DAILY [facility] Stop: 02/28/23 08:59 Last Admin: 01/31/23 09:20 Dose: 30 mg Lactobacillus Acidophilus (Advanced Probiotic 1250 Mg Capsule) 2 cap PO TID [facility] Stop: 02/28/23 08:59 Last Admin: 01/31/23 09:19 Dose: 2 cap Lorazepam (Lorazepam 0.5 Mg Tab) 0.5 mg PO Q8 PRN PRN Reason: Anxiety Stop: 02/28/23 01:20 Last Admin: 01/31/23 07:39 Dose: 0.5 mg Metoprolol Succinate (Metoprolol Succ 25mg Ext Rel Tab) 75 mg PO BID [facility] Stop: 02/28/23 08:59 Last Admin: 01/31/23 09:22 Dose: 75 mg Miscellaneous (Carbohydrates For Hypoglycemia ) 15 - 30 gm PO UD PRN PRN Reason: Hypoglycemia Protocol Stop: 02/28/23 01:20 Miscellaneous (Remove Nicoderm Patch) 1 each N/A HS [facility] Stop: 03/02/23 20:59 Nicotine (Nicotine 21 Mg/24 Hr Tdsy) 21 mg TD DAILY [facility] Stop: 03/02/23 09:44 Last Admin: 01/31/23 10:23 Dose: 21 mg Nystatin (Nystatin Powder 15gm Btl) 1 appln EXT QSHIFT PRN PRN Reason: Affected Skin Folds Stop: 02/28/23 03:08 Last Admin: 01/29/23 05:54 Dose: 1 appln Pantoprazole Sodium (Pantoprazole 40 Mg Tab) 40 mg PO DAILYBB [facility] Stop: 02/28/23 06:29 Last Admin: 01/31/23 05:58 Dose: 40 mg Polyethylene Glycol (Polyethylene (Miralax) 17 Gm Pack) 17 gm PO QAM [facility] Stop: 02/28/23 08:59 Last Admin: 01/31/23 09:31 Dose: 17 gm Prednisone (Prednisone 20 Mg Tab) 40 mg PO DAILY [facility] Stop: 02/28/23 13:59 Last Admin: 01/31/23 09:21 Dose: 40 mg Sennosides (Senna 8.6 Mg Tab) 8.6 mg PO DAILY PRN PRN Reason: Constipation Stop: 02/28/23 01:20 Last Admin: 01/30/23 08:26 Dose: 8.6 mg Tamsulosin HCl (Tamsulosin Hcl 0.4 Mg Cap) 0.8 mg PO [facility] Stop: 02/28/23 08:59 Last Admin: 01/31/23 09:21 Dose: 0.8 mg Warfarin Sodium (Warfarin Sod 5 Mg Tab) 5 mg PO SuMoWeFrSa@1600 [facility] Stop: 03/01/23 15:59 Last Admin: 01/30/23 17:15 Dose: 5 mg Warfarin Sodium (Warfarin Sod 2.5 Mg Tab) 2.5 mg PO TuTh@1600 [facility] Stop: 03/04/23 15:59
--- NOTE | 2023-01-31 12:43 | XRay Report ---
XR chest 1V portable CLINICAL HISTORY: cough TECHNIQUE: Single frontal radiograph of the chest was obtained. Comparison: Comparison is made to chest radiograph 01/13/2023 FINDINGS: Exam is limited by underpenetration. Cardiomegaly is noted. The lungs are clear. No evidence of pleur al effusion or pneumothorax. IMPRESSION: Limited exam but with no evidence of pneumonia. Cardiomegaly is seen. ACT 112: Negative or not required by law. Electronically signed by: Armand Tobar M.D. 01/31/2023 12:40 PM
[2023-01-31] MEDS: ATORVASTATIN 40 MG TAB PO SCH (13:59)
[2023-01-31] MEDS: COUGH DROP (SUGAR FREE) LOZ 24 LOZ/1 BOX BUCCAL PRN (15:22)
[2023-01-31] MEDS: WARFARIN SOD 5 MG TAB PO SCH (15:24)
[2023-01-31] MEDS: PROMETHAZINE HCL 12.5 MG in SODIUM CHLORIDE 0.9% 50 ML IV PRN (17:53)
[2023-02-01] MEDS: HYDROcodone/HOMATROPINE SYRUP 5MG/1.5MG 5ML UDP PO PRN ×4 (04:13→23:36)
[2023-02-01] MEDS: PANTOprazole 40 MG TAB PO SCH (04:13)
[2023-02-01] MEDS: CYCLOBENZAPRINE HCL 10 MG TAB PO PRN ×2 (08:07→20:54)
[2023-02-01] MEDS: INSULIN ASPART PER UNIT CHARGE SC SCH ×4 (08:08→21:50)
[2023-02-01] MEDS: LORazepam 0.5 MG TAB PO PRN ×2 (08:08→20:54)
[2023-02-01] MEDS: buprenorphine HCL 8 MG SUBL SL SCH ×3 (08:08→20:53)
[2023-02-01] MEDS: FUROSEMIDE 40 MG/4 ML VIAL IV SCH ×2 (08:08→20:57)
[2023-02-01] MEDS: LANTUS PER UNIT CHARGE SC SCH ×2 (08:08→21:49)
[2023-02-01] MEDS: GABAPENTIN 800 MG TAB PO SCH ×3 (08:09→20:57)
[2023-02-01] MEDS: FERROUS SULFATE 325 MG TAB PO SCH (08:09)
[2023-02-01] MEDS: ISOSORBIDE DINITRATE 10 MG TAB PO SCH (08:09)
[2023-02-01] MEDS: METOPROLOL SUCC 25MG EXT REL TAB PO SCH ×2 (08:09→21:33)
[2023-02-01] MEDS: TAMSULOSIN HCL 0.4 MG CAP PO SCH (08:09)
[2023-02-01] MEDS: FINASTERIDE 5 MG TAB PO SCH (08:10)
[2023-02-01] MEDS: DOCUSATE SODIUM 100 MG CAP PO SCH ×2 (08:10→20:55)
[2023-02-01] MEDS: ADVANCED PROBIOTIC 1250 MG CAPSULE PO SCH ×3 (08:10→20:57)
[2023-02-01] MEDS: predniSONE 20 MG TAB PO SCH (08:11)
[2023-02-01] MEDS: FAMOTIDINE 20 MG TAB PO SCH (08:11)
[2023-02-01] MEDS: FOLIC ACID 1 MG TAB PO SCH (08:11)
[2023-02-01] MEDS: SENNA 8.6 MG TAB PO PRN (08:11)
[2023-02-01] MEDS: DULoxetine HCL 60 MG CAP PO SCH (08:11)
[2023-02-01] MEDS: POLYETHYLENE (MIRALAX) 17 GM PACK PO SCH (08:12)
[2023-02-01] MEDS: NICOTINE 21 MG/24 HR TDSY TD SCH (08:12)
[2023-02-01] MEDS: COUGH DROP (SUGAR FREE) LOZ 24 LOZ/1 BOX BUCCAL PRN (08:12)
[2023-02-01] MEDS: ALBUTEROL HFA 8 GM INHALER INH PRN ×2 (08:13→21:40)
[2023-02-01] MEDS: DICLOFENAC SOD 1% GEL 100 GM TUBE EXT SCH ×2 (08:13→21:07)
[2023-02-01] MEDS: FLUTICASONE PROPIONATE NA SPR 16 GM BTL SCH (08:14)
[2023-02-01 09:43] LABS: BUN Creatinine Ratio 21.3 (10-20); Calcium 9.4 mg/dl (8.6-10.3); Creatinine Clr Calc Pharmacy 186.3 ml/min; Est GFR (African American) 113.9 ml/min; Est GFR (Non-African American) 98.3 ml/min; Potassium 3.7 mmol/L (3.5-5.1)
[2023-02-01 10:02] LABS: INR 1.2 (0.9-1.1); Prothrombin Time 13.5 Seconds (9.0-12.0)
[2023-02-01] MEDS: ACETAMINOPHEN 1,000 MG/100 ML VIAL IV SCH ×2 (11:22→22:33)
[2023-02-01] MEDS: cefTRIAXone SODIUM 2,000 MG in DEXTROSE 5% 50 ML IV SCH (11:22)
[2023-02-01] MEDS: ATORVASTATIN 40 MG TAB PO SCH (12:42)
--- NOTE | 2023-02-01 13:08 | Hospitalist Progress Note ---
Date of Service February 01, 2023 Assessment & Plan (1) Fall: (2) UTI (urinary tract infection) due to urinary indwelling catheter: (3) Generalized weakness: (4) Chronic anticoagulation: (5) (HFpEF) heart failure with preserved ejection fraction: (6) Subtherapeutic international normalized ratio (INR): (7) DM type 2 (diabetes mellitus, type 2): Plan This is a 52-year-old male who has significant past medical history of medical noncompliance, history of chronic opioid abuse, indwelling Lloyd catheter for which he has been unwilling to remove, chronic systolic CHF, HTN, HLD, insulin- dependent T2DM, COPD, morbid obesity, depression with anxiety, history of PE on chronic warfarin therapy who presents to ED secondary to fall that occurred last evening. Fall-tripped over his own feet without any warning symptoms Generalized weakness Left-sided abdominal hematoma--no evidence of continued bleeding. Hemoglobin remains stable Remains free from any symptoms No arrhythmias noted We will get PT and OT evaluation-May need placement Clinically better today without any significant symptoms at rest We will continue with PT and OT He is deciding to go to rehab Remains medically stable and awaiting PT evaluation-recommending rehab for short-term We will continue PT evaluation while in the hospital UTI-catheter induced UTI Remote history of ESBL Recent history of Enterococcus faecalis UTI Has been getting intravenous Zosyn and meropenem has been discontinued Will await blood and urine culture Urine culture is growing Klebsiella pneumoniae which is sensitive to cephalosporins We will change antibiotic to intravenous ceftriaxone with a plan to oral Keflex on discharge No urinary symptom Will finish the course of antibiotic COPD No exacerbation Minimal wheezing on examination Will start prednisone 40 mg for 5 days Wheezing is better and denies any shortness of breath Seems to be better with decreasing cough Has been getting inhalers as needed and prednisone orally History of PE on chronic anticoagulation with subtherapeutic INR We will monitor INR while in the hospital Chronic HFpEF We will continue her home dose of Lasix and may need intravenous Lasix while in the hospital Continue with usual dose of Lasix His Lasix will be given intravenously 40-minute twice a day while he is in the hospital Has been diuresing enough-he has a cumulative balance of -14,601 mL T2DM We will continue current dose of insulin Sliding scale insulin coverage Chronic opioid use Medical noncompliance DVT prophylaxis We will start Coumadin CODE STATUS Full Admission and Anticipated Discharge Date Admission Date: January 28, 2023 Subjective 01/29/2023 The patient was seen and examined in medical telemetry unit He has had mechanical fall at home with bruising involving the left lateral abdominal wall on the lower side He has bruising but no fracture of the ribs and or any other problems Has wheezing but denies any cough and no shortness of breath 01/30/2023 The patient was seen and examined in medical telemetry unit He has been feeling little better today His cough is better and wheezing is better to He wants to go to rehab 01/31/2023 The patient was seen and examined in medical telemetry unit He has been complaining of more wheezing but no shortness of breath at rest Cough is decreased and he has been saturating normally on room air 02/01/2023 The patient was seen and examined in medical telemetry unit He has been wheezing but does not have any more shortness of breath though he has been requiring 4 L to maintain saturation He has been diuresing enough He wants to go to rehab Review of Systems Review of Systems: All systems reviewed and are unremarkable except as noted below Physical Exam Physical Exam: Sitting on a chair without any acute distress Constitutional: well developed, well nourished and + morbidly obese; not ill appearing Eyes: PERRL, conjunctivae normal, anicteric sclerae ENMT: external ear and nose normal, oropharynx normal Neck: trachea midline, no thyromegaly Respiratory: no respiratory distress Auscultation: + diminished lung sounds, + crackles (Bibasal) and + wheezes (Minimal wheezing all over) Cardiovascular: Rate/Rhythm: regular rate and regular rhythm; not tachycardic Heart Sounds: normal S1 and normal S2; no murmur Extremities: + edema (1+ edema bilaterally with chronic skin changes) Gastrointestinal (Abdomen): Inspection/Auscultation: + abdomen distended and normal bowel sounds Percussion/Palpation: abdomen soft; abdomen nontender Musculoskeletal: No acute arthritis involving any of the joint Neurologic: normal touch/pain/proprioception and moves all extremities Psychiatric: A+Ox3, euthymic affect Lymphatic: no cervical or axillary lymphadenopathy Results & Data Results & Data Vital Signs (Past 12 Hours) Vital Signs Temp Pulse Pulse Resp BP Pulse Ox O2 Del Method 02/01/23 08:00 62 02/01/23 11:03 36.4 C L 70 20 116/71 98 Nasal Cannula 02/01/23 07:43 36.5 C 67 20 135/76 100 Nasal Cannula 02/01/23 04:00 72 02/01/23 02:29 36.6 C 68 20 157/78 H 100 Nasal Cannula O2 Flow Rate 02/01/23 08:00 02/01/23 11:03 4 02/01/23 07:43 4 02/01/23 04:00 02/01/23 02:29 4 Laboratory Results BMP 02/01/23 08:57 Sodium 139 Potassium 3.7 Chloride 99 Carbon Dioxide 37 H BUN 19 Creatinine 0.89 Glucose 199 H Calcium 9.4 Medications Administered Current Inpatient Medications Albuterol (Albuterol Hfa 8 Gm Inhaler) 2 puffs INH Q4R PRN PRN Reason: Dyspnea Stop: 03/02/23 10:59 Last Admin: 02/01/23 08:13 Dose: 2 puffs Atorvastatin Calcium (Atorvastatin 40 Mg Tab) 80 mg PO Q24H [facility] Stop: 02/28/23 13:59 Last Admin: 02/01/23 12:42 Dose: 80 mg Buprenorphine HCl (Buprenorphine Hcl 8 Mg Subl) 8 mg SL TID [facility] Stop: 02/28/23 01:20 Last Admin: 02/01/23 12:42 Dose: 8 mg Cyclobenzaprine HCl (Cyclobenzaprine Hcl 10 Mg Tab) 10 mg PO BID PRN PRN Reason: Muscle Spasm Stop: 02/28/23 01:20 Last Admin: 02/01/23 08:07 Dose: 10 mg Dextrose (Dextrose 50% 50 Ml Syringe) 25 - 50 ml IV UD PRN; Protocol PRN Reason: Hypoglycemia Protocol Stop: 02/28/23 01:20 Diclofenac Sodium (Diclofenac Sod 1% Gel 100 Gm Tube) 2 gm EXT BID [facility]; Protocol Stop: 02/28/23 08:59 Last Admin: 02/01/23 08:13 Dose: 2 gm Docusate Sodium (Docusate Sodium 100 Mg Cap) 100 mg PO BID [facility] Stop: 02/28/23 08:59 Last Admin: 02/01/23 08:10 Dose: 100 mg Duloxetine HCl (Duloxetine Hcl 60 Mg Cap) 60 mg PO DAILY [facility] Stop: 02/28/23 08:59 Last Admin: 02/01/23 08:11 Dose: 60 mg Famotidine (Famotidine 20 Mg Tab) 20 mg PO DAILY [facility] Stop: 02/28/23 08:59 Last Admin: 02/01/23 08:11 Dose: 20 mg Ferrous Sulfate (Ferrous Sulfate 325 Mg Tab) 325 mg PO QDB [facility] Stop: 02/28/23 07:29 Last Admin: 02/01/23 08:09 Dose: 325 mg Finasteride (Finasteride 5 Mg Tab) 5 mg PO QAM [facility] Stop: 02/28/23 08:59 Last Admin: 02/01/23 08:10 Dose: 5 mg Fluticasone Propionate (Fluticasone Propionate Na Spr 16 Gm Btl) 2 sprays NA DAILY [facility] Stop: 02/28/23 08:59 Last Admin: 02/01/23 08:14 Dose: 2 sprays Folic Acid (Folic Acid 1 Mg Tab) 1 mg PO QAM [facility] Stop: 02/28/23 08:59 Last Admin: 02/01/23 08:11 Dose: 1 mg Furosemide (Furosemide 40 Mg/4 Ml Vial) 40 mg IV BID [facility] Stop: 03/02/23 11:59 Last Admin: 02/01/23 08:08 Dose: 40 mg Gabapentin (Gabapentin 800 Mg Tab) 800 mg PO TID [facility] Stop: 02/28/23 08:59 Last Admin: 02/01/23 12:42 Dose: 800 mg Glucagon (Glucagon For Inj 1 Mg Vial) 1 mg SQ UD PRN; Protocol PRN Reason: Hypoglycemia Protocol Stop: 02/28/23 01:20 Glucose (Glucose 10 Tab/Tube) 4 - 8 tab PO UD PRN; Protocol PRN Reason: Hypoglycemia Treatment Stop: 02/28/23 01:20 Glucose (Glucose 40% Gel 15 Gm Tube) 15 - 30 gm PO UD PRN; Protocol PRN Reason: Hypoglycemia Protocol Stop: 02/28/23 01:20 Hydrocodone Bit/Homatropine Methylb (Hydrocodone/Homatropine Syrup 5mg/1.5mg 5ml Udp) 5 ml PO Q6H PRN PRN Reason: Cough Stop: 02/12/23 10:33 Last Admin: 02/01/23 11:22 Dose: 5 ml Hydroxyzine HCl (Hydroxyzine Hcl 25 Mg Tab) 25 mg PO QID PRN PRN Reason: Anxiety Stop: 02/28/23 01:20 Promethazine HCl 12.5 mg/ (Sodium Chloride) 50.5 mls @ 202 mls/hr IV Q6H PRN PRN Reason: Nausea And Vomiting Stop: 02/28/23 17:42 Last Infusion: 01/31/23 18:20 Dose: Infused Ceftriaxone Sodium 2,000 mg/ (Dextrose) 70 mls @ 140 mls/hr IV Q24H [facility] Stop: 02/09/23 11:29 Last Infusion: 02/01/23 11:53 Dose: Infused Acetaminophen (Ofirmev) 1,000 mg in 100 mls @ 400 mls/hr IV Q12H [facility] Stop: 02/04/23 10:29 Last Infusion: 02/01/23 11:47 Dose: Infused Insulin Aspart (Insulin Aspart Per Unit Charge) 0 units SC ACHS [facility] Stop: 02/28/23 02:14 Last Admin: 02/01/23 12:42 Dose: 5 units Insulin Glargine (Lantus Per Unit Charge) 25 units SC BID [facility] Stop: 02/28/23 02:14 Last Admin: 02/01/23 08:08 Dose: 25 units Isosorbide Dinitrate (Isosorbide Dinitrate 10 Mg Tab) 30 mg PO DAILY [facility] Stop: 02/28/23 08:59 Last Admin: 02/01/23 08:09 Dose: 30 mg Lactobacillus Acidophilus (Advanced Probiotic 1250 Mg Capsule) 2 cap PO TID [facility] Stop: 02/28/23 08:59 Last Admin: 02/01/23 08:10 Dose: 2 cap Lorazepam (Lorazepam 0.5 Mg Tab) 0.5 mg PO Q8 PRN PRN Reason: Anxiety Stop: 02/28/23 01:20 Last Admin: 02/01/23 08:08 Dose: 0.5 mg Menthol (Cough Drop (Sugar Free) Fernie 24 Fernie/1 Box) 1 fernie BUCCAL NOW PRN PRN Reason: Sore Throat Stop: 02/02/23 14:58 Last Admin: 02/01/23 08:12 Dose: 1 fernie Metoprolol Succinate (Metoprolol Succ 25mg Ext Rel Tab) 75 mg PO BID [facility] Stop: 02/28/23 08:59 Last Admin: 02/01/23 08:09 Dose: 75 mg Miscellaneous (Carbohydrates For Hypoglycemia ) 15 - 30 gm PO UD PRN PRN Reason: Hypoglycemia Protocol Stop: 02/28/23 01:20 Miscellaneous (Remove Nicoderm Patch) 1 each N/A HS [facility] Stop: 03/02/23 20:59 Last Admin: 01/31/23 20:57 Dose: 1 each Nicotine (Nicotine 21 Mg/24 Hr Tdsy) 21 mg TD DAILY [facility] Stop: 03/02/23 09:44 Last Admin: 02/01/23 08:12 Dose: 21 mg Nystatin (Nystatin Powder 15gm Btl) 1 appln EXT QSHIFT PRN PRN Reason: Affected Skin Folds Stop: 02/28/23 03:08 Last Admin: 01/29/23 05:54 Dose: 1 appln Pantoprazole Sodium (Pantoprazole 40 Mg Tab) 40 mg PO DAILYBB [facility] Stop: 02/28/23 06:29 Last Admin: 02/01/23 04:13 Dose: 40 mg Polyethylene Glycol (Polyethylene (Miralax) 17 Gm Pack) 17 gm PO QAM [facility] Stop: 02/28/23 08:59 Last Admin: 02/01/23 08:12 Dose: 17 gm Prednisone (Prednisone 20 Mg Tab) 40 mg PO DAILY [facility] Stop: 02/28/23 13:59 Last Admin: 02/01/23 08:11 Dose: 40 mg Sennosides (Senna 8.6 Mg Tab) 8.6 mg PO DAILY PRN PRN Reason: Constipation Stop: 02/28/23 01:20 Last Admin: 02/01/23 08:11 Dose: 8.6 mg Tamsulosin HCl (Tamsulosin Hcl 0.4 Mg Cap) 0.8 mg PO QAM [facility] Stop: 02/28/23 08:59 Last Admin: 02/01/23 08:09 Dose: 0.8 mg Warfarin Sodium (Warfarin Sod 5 Mg Tab) 5 mg PO [id number]@1600 [facility] Stop: 03/01/23 15:59 Last Admin: 01/31/23 15:24 Dose: 5 mg Warfarin Sodium (Warfarin Sod 2.5 Mg Tab) 2.5 mg PO TuTh@1600 [facility] Stop: 03/04/23 15:59
[2023-02-01] MEDS: PROMETHAZINE HCL 12.5 MG in SODIUM CHLORIDE 0.9% 50 ML IV PRN (16:04)
[2023-02-01] MEDS: WARFARIN SOD 5 MG TAB PO SCH (16:04)
[2023-02-02] MEDS: INSULIN ASPART PER UNIT CHARGE SC SCH ×5 (03:29→21:14)
[2023-02-02] MEDS: PANTOprazole 40 MG TAB PO SCH (05:34)
[2023-02-02] MEDS: HYDROcodone/HOMATROPINE SYRUP 5MG/1.5MG 5ML UDP PO PRN ×4 (05:36→23:45)
[2023-02-02 07:34] LABS: INR 1.5 (0.9-1.1); Prothrombin Time 15.6 Seconds (9.0-12.0)
[2023-02-02] MEDS: CYCLOBENZAPRINE HCL 10 MG TAB PO PRN ×2 (08:21→20:46)
[2023-02-02] MEDS: LORazepam 0.5 MG TAB PO PRN ×2 (08:21→20:47)
[2023-02-02] MEDS: buprenorphine HCL 8 MG SUBL SL SCH ×3 (08:21→20:47)
[2023-02-02] MEDS: FUROSEMIDE 40 MG/4 ML VIAL IV SCH ×2 (08:22→20:47)
[2023-02-02] MEDS: DOCUSATE SODIUM 100 MG CAP PO SCH ×2 (08:22→20:47)
[2023-02-02] MEDS: COUGH DROP (SUGAR FREE) LOZ 24 LOZ/1 BOX BUCCAL PRN (08:22)
[2023-02-02] MEDS: METOPROLOL SUCC 25MG EXT REL TAB PO SCH ×2 (08:22→21:13)
[2023-02-02] MEDS: ADVANCED PROBIOTIC 1250 MG CAPSULE PO SCH ×3 (08:22→20:48)
[2023-02-02] MEDS: POLYETHYLENE (MIRALAX) 17 GM PACK PO SCH (08:22)
[2023-02-02] MEDS: predniSONE 20 MG TAB PO SCH (08:23)
[2023-02-02] MEDS: DICLOFENAC SOD 1% GEL 100 GM TUBE EXT SCH ×2 (08:23→20:47)
[2023-02-02] MEDS: NICOTINE 21 MG/24 HR TDSY TD SCH (08:23)
[2023-02-02] MEDS: FINASTERIDE 5 MG TAB PO SCH (08:23)
[2023-02-02] MEDS: FERROUS SULFATE 325 MG TAB PO SCH (08:23)
[2023-02-02] MEDS: FAMOTIDINE 20 MG TAB PO SCH (08:24)
[2023-02-02] MEDS: GABAPENTIN 800 MG TAB PO SCH ×3 (08:24→20:48)
[2023-02-02] MEDS: FOLIC ACID 1 MG TAB PO SCH (08:24)
[2023-02-02] MEDS: ISOSORBIDE DINITRATE 10 MG TAB PO SCH (08:24)
[2023-02-02] MEDS: LANTUS PER UNIT CHARGE SC SCH ×2 (08:25→21:14)
[2023-02-02] MEDS: ALBUTEROL HFA 8 GM INHALER INH PRN (08:26)
[2023-02-02] MEDS: FLUTICASONE PROPIONATE NA SPR 16 GM BTL SCH (08:27)
[2023-02-02] MEDS: DULoxetine HCL 60 MG CAP PO SCH (08:27)
[2023-02-02] MEDS: TAMSULOSIN HCL 0.4 MG CAP PO SCH (08:28)
[2023-02-02] MEDS: ACETAMINOPHEN 1,000 MG/100 ML VIAL IV SCH ×2 (10:42→22:00)
[2023-02-02] MEDS: cefTRIAXone SODIUM 2,000 MG in DEXTROSE 5% 50 ML IV SCH (10:42)
[2023-02-02] MEDS: ATORVASTATIN 40 MG TAB PO SCH (13:45)
--- NOTE | 2023-02-02 16:42 | Hospitalist Progress Note ---
Date of Service February 02, 2023 Assessment & Plan (1) Fall: (2) UTI (urinary tract infection) due to urinary indwelling catheter: (3) Generalized weakness: (4) Chronic anticoagulation: (5) (HFpEF) heart failure with preserved ejection fraction: (6) Subtherapeutic international normalized ratio (INR): (7) DM type 2 (diabetes mellitus, type 2): Plan This is a 52-year-old male who has significant past medical history of medical noncompliance, history of chronic opioid abuse, indwelling Lloyd catheter for which he has been unwilling to remove, chronic systolic CHF, HTN, HLD, insulin- dependent T2DM, COPD, morbid obesity, depression with anxiety, history of PE on chronic warfarin therapy who presents to ED secondary to fall that occurred last evening. Fall-tripped over his own feet without any warning symptoms Generalized weakness Left-sided abdominal hematoma--no evidence of continued bleeding. Hemoglobin remains stable Remains free from any symptoms No arrhythmias noted We will get PT and OT evaluation-May need placement Clinically better today without any significant symptoms at rest We will continue with PT and OT He is deciding to go to rehab Remains medically stable and awaiting PT evaluation-recommending rehab for short-term We will continue PT evaluation while in the hospital PT recommended rehab versus home-the patient wants to go to rehab UTI-catheter induced UTI Remote history of ESBL Recent history of Enterococcus faecalis UTI Has been getting intravenous Zosyn and meropenem has been discontinued Will await blood and urine culture Urine culture is growing Klebsiella pneumoniae which is sensitive to cephalosporins We will change antibiotic to intravenous ceftriaxone with a plan to oral Keflex on discharge No urinary symptom Will finish the course of antibiotic COPD No exacerbation Minimal wheezing on examination Will start prednisone 40 mg for 5 days Wheezing is better and denies any shortness of breath Seems to be better with decreasing cough Has been getting inhalers as needed and prednisone orally May have bronchitis and will start oral doxycycline History of PE on chronic anticoagulation with subtherapeutic INR We will monitor INR while in the hospital INR is improving Chronic HFpEF We will continue her home dose of Lasix and may need intravenous Lasix while in the hospital Continue with usual dose of Lasix His Lasix will be given intravenously 40-minute twice a day while he is in the hospital Has been diuresing enough-he has a cumulative balance of -14,601 mL T2DM We will continue current dose of insulin Sliding scale insulin coverage Chronic opioid use Medical noncompliance DVT prophylaxis We will start Coumadin CODE STATUS Full Admission and Anticipated Discharge Date Admission Date: January 28, 2023 Subjective 01/29/2023 The patient was seen and examined in medical telemetry unit He has had mechanical fall at home with bruising involving the left lateral abdominal wall on the lower side He has bruising but no fracture of the ribs and or any other problems Has wheezing but denies any cough and no shortness of breath 01/30/2023 The patient was seen and examined in medical telemetry unit He has been feeling little better today His cough is better and wheezing is better to He wants to go to rehab 01/31/2023 The patient was seen and examined in medical telemetry unit He has been complaining of more wheezing but no shortness of breath at rest Cough is decreased and he has been saturating normally on room air 02/01/2023 The patient was seen and examined in medical telemetry unit He has been wheezing but does not have any more shortness of breath though he has been requiring 4 L to maintain saturation He has been diuresing enough He wants to go to rehab 02/02/2023 The patient was seen and examined in medical telemetry unit He has been stable and has been saturating normally on room air He has had some bleeding from the left ear yesterday There is dry blood in 1 side but no blockage He has been is stable to be discharged in the facility when he is accepted Review of Systems Review of Systems: All systems reviewed and are unremarkable except as noted below Physical Exam Physical Exam: Sitting on a chair without any acute distress Constitutional: well developed, well nourished and + morbidly obese; not ill appearing Eyes: PERRL, conjunctivae normal, anicteric sclerae ENMT: external ear and nose normal, oropharynx normal Neck: trachea midline, no thyromegaly Respiratory: no respiratory distress Auscultation: + diminished lung sounds, + crackles (Bibasal) and + wheezes (Minimal wheezing all over) Cardiovascular: Rate/Rhythm: regular rate and regular rhythm; not tachycardic Heart Sounds: normal S1 and normal S2; no murmur Extremities: + edema (1+ edema bilaterally with chronic skin changes) Gastrointestinal (Abdomen): Inspection/Auscultation: + abdomen distended and normal bowel sounds Percussion/Palpation: abdomen soft; abdomen nontender Neurologic: normal touch/pain/proprioception and moves all extremities Psychiatric: A+Ox3, euthymic affect Lymphatic: no cervical or axillary lymphadenopathy Results & Data Results & Data Vital Signs (Past 12 Hours) Vital Signs Temp Pulse Pulse Resp BP Pulse Ox O2 Del Method 02/02/23 16:00 66 02/02/23 14:51 36.7 C 67 20 112/65 91 Room Air 02/02/23 11:58 69 96/59 L 02/02/23 11:16 36.6 C 74 20 88/51 L 91 Room Air 02/02/23 08:00 64 02/02/23 08:03 36.5 C 66 20 128/82 100 Nasal Cannula O2 Flow Rate 02/02/23 16:00 02/02/23 14:51 02/02/23 11:58 02/02/23 11:16 02/02/23 08:00 02/02/23 08:03 4 Medications Administered Current Inpatient Medications Albuterol (Albuterol Hfa 8 Gm Inhaler) 2 puffs INH Q4R PRN PRN Reason: Dyspnea Stop: 03/02/23 10:59 Last Admin: 02/02/23 08:26 Dose: 2 puffs Atorvastatin Calcium (Atorvastatin 40 Mg Tab) 80 mg PO Q24H EMPERATRIZ Stop: 02/28/23 13:59 Last Admin: 02/02/23 13:45 Dose: 80 mg Buprenorphine HCl (Buprenorphine Hcl 8 Mg Subl) 8 mg SL TID EMPERATRIZ Stop: 02/28/23 01:20 Last Admin: 02/02/23 13:44 Dose: 8 mg Cyclobenzaprine HCl (Cyclobenzaprine Hcl 10 Mg Tab) 10 mg PO BID PRN PRN Reason: Muscle Spasm Stop: 02/28/23 01:20 Last Admin: 02/02/23 08:21 Dose: 10 mg Dextrose (Dextrose 50% 50 Ml Syringe) 25 - 50 ml IV UD PRN; Protocol PRN Reason: Hypoglycemia Protocol Stop: 02/28/23 01:20 Diclofenac Sodium (Diclofenac Sod 1% Gel 100 Gm Tube) 2 gm EXT BID EMPERATRIZ; Protocol Stop: 02/28/23 08:59 Last Admin: 02/02/23 08:23 Dose: 2 gm Docusate Sodium (Docusate Sodium 100 Mg Cap) 100 mg PO BID EMPERATRIZ Stop: 02/28/23 08:59 Last Admin: 02/02/23 08:22 Dose: 100 mg Duloxetine HCl (Duloxetine Hcl 60 Mg Cap) 60 mg PO DAILY EMPERATRIZ Stop: 02/28/23 08:59 Last Admin: 02/02/23 08:27 Dose: 60 mg Famotidine (Famotidine 20 Mg Tab) 20 mg PO DAILY EMPERATRIZ Stop: 02/28/23 08:59 Last Admin: 02/02/23 08:24 Dose: 20 mg Ferrous Sulfate (Ferrous Sulfate 325 Mg Tab) 325 mg PO QDB EMPERATRIZ Stop: 02/28/23 07:29 Last Admin: 02/02/23 08:23 Dose: 325 mg Finasteride (Finasteride 5 Mg Tab) 5 mg PO QAM EMPERATRIZ Stop: 02/28/23 08:59 Last Admin: 02/02/23 08:23 Dose: 5 mg Fluticasone Propionate (Fluticasone Propionate Na Spr 16 Gm Btl) 2 sprays NA DAILY EMPERATRIZ Stop: 02/28/23 08:59 Last Admin: 02/02/23 08:27 Dose: 2 sprays Folic Acid (Folic Acid 1 Mg Tab) 1 mg PO QAM EMPERATRIZ Stop: 02/28/23 08:59 Last Admin: 02/02/23 08:24 Dose: 1 mg Furosemide (Furosemide 40 Mg/4 Ml Vial) 40 mg IV BID EMPERATRIZ Stop: 03/02/23 11:59 Last Admin: 02/02/23 08:22 Dose: 40 mg Gabapentin (Gabapentin 800 Mg Tab) 800 mg PO TID EMPERATRIZ Stop: 02/28/23 08:59 Last Admin: 02/02/23 13:45 Dose: 800 mg Glucagon (Glucagon For Inj 1 Mg Vial) 1 mg SQ UD PRN; Protocol PRN Reason: Hypoglycemia Protocol Stop: 02/28/23 01:20 Glucose (Glucose 10 Tab/Tube) 4 - 8 tab PO UD PRN; Protocol PRN Reason: Hypoglycemia Treatment Stop: 02/28/23 01:20 Glucose (Glucose 40% Gel 15 Gm Tube) 15 - 30 gm PO UD PRN; Protocol PRN Reason: Hypoglycemia Protocol Stop: 02/28/23 01:20 Hydrocodone Bit/Homatropine Methylb (Hydrocodone/Homatropine Syrup 5mg/1.5mg 5ml Udp) 5 ml PO Q6H PRN PRN Reason: Cough Stop: 02/12/23 10:33 Last Admin: 02/02/23 10:43 Dose: 5 ml Hydroxyzine HCl (Hydroxyzine Hcl 25 Mg Tab) 25 mg PO QID PRN PRN Reason: Anxiety Stop: 02/28/23 01:20 Promethazine HCl 12.5 mg/ (Sodium Chloride) 50.5 mls @ 202 mls/hr IV Q6H PRN PRN Reason: Nausea And Vomiting Stop: 02/28/23 17:42 Last Infusion: 02/01/23 16:20 Dose: Infused Ceftriaxone Sodium 2,000 mg/ (Dextrose) 70 mls @ 140 mls/hr IV Q24H [facility] Stop: 02/09/23 11:29 Last Infusion: 02/02/23 11:16 Dose: Infused Acetaminophen (Ofirmev) 1,000 mg in 100 mls @ 400 mls/hr IV Q12H [facility] Stop: 02/04/23 10:29 Last Infusion: 02/02/23 11:02 Dose: Infused Insulin Aspart (Insulin Aspart Per Unit Charge) 0 units SC ACHS [facility] Stop: 02/28/23 02:14 Last Admin: 02/02/23 12:32 Dose: 5 units Insulin Glargine (Lantus Per Unit Charge) 25 units SC BID [facility] Stop: 02/28/23 02:14 Last Admin: 02/02/23 08:25 Dose: 25 units Isosorbide Dinitrate (Isosorbide Dinitrate 10 Mg Tab) 30 mg PO DAILY [facility] Stop: 02/28/23 08:59 Last Admin: 02/02/23 08:24 Dose: 30 mg Lactobacillus Acidophilus (Advanced Probiotic 1250 Mg Capsule) 2 cap PO TID EMPERATRIZ Stop: 02/28/23 08:59 Last Admin: 02/02/23 13:45 Dose: 2 cap Lorazepam (Lorazepam 0.5 Mg Tab) 0.5 mg PO Q8 PRN PRN Reason: Anxiety Stop: 02/28/23 01:20 Last Admin: 02/02/23 08:21 Dose: 0.5 mg Metoprolol Succinate (Metoprolol Succ 25mg Ext Rel Tab) 75 mg PO BID [facility] Stop: 02/28/23 08:59 Last Admin: 02/02/23 08:22 Dose: 75 mg Miscellaneous (Carbohydrates For Hypoglycemia ) 15 - 30 gm PO UD PRN PRN Reason: Hypoglycemia Protocol Stop: 02/28/23 01:20 Miscellaneous (Remove Nicoderm Patch) 1 each N/A HS [facility] Stop: 03/02/23 20:59 Last Admin: 02/01/23 21:52 Dose: Not Given Nicotine (Nicotine 21 Mg/24 Hr Tdsy) 21 mg TD DAILY [facility] Stop: 03/02/23 09:44 Last Admin: 02/02/23 08:23 Dose: 21 mg Nystatin (Nystatin Powder 15gm Btl) 1 appln EXT QSHIFT PRN PRN Reason: Affected Skin Folds Stop: 02/28/23 03:08 Last Admin: 01/29/23 05:54 Dose: 1 appln Pantoprazole Sodium (Pantoprazole 40 Mg Tab) 40 mg PO DAILYBB [facility] Stop: 02/28/23 06:29 Last Admin: 02/02/23 05:34 Dose: 40 mg Polyethylene Glycol (Polyethylene (Miralax) 17 Gm Pack) 17 gm PO QAM [facility] Stop: 02/28/23 08:59 Last Admin: 02/02/23 08:22 Dose: 17 gm Prednisone (Prednisone 20 Mg Tab) 40 mg PO DAILY [facility] Stop: 02/28/23 13:59 Last Admin: 02/02/23 08:23 Dose: 40 mg Sennosides (Senna 8.6 Mg Tab) 8.6 mg PO DAILY PRN PRN Reason: Constipation Stop: 02/28/23 01:20 Last Admin: 02/01/23 08:11 Dose: 8.6 mg Tamsulosin HCl (Tamsulosin Hcl 0.4 Mg Cap) 0.8 mg PO QAM [facility] Stop: 02/28/23 08:59 Last Admin: 02/02/23 08:28 Dose: 0.8 mg Warfarin Sodium (Warfarin Sod 5 Mg Tab) 5 mg PO SuMoWeFrSa@1600 [facility] Stop: 03/01/23 15:59 Last Admin: 02/01/23 16:04 Dose: 5 mg Warfarin Sodium (Warfarin Sod 2.5 Mg Tab) 2.5 mg PO TuTh@1600 [facility] Stop: 03/04/23 15:59
[2023-02-02] MEDS: WARFARIN SOD 2.5 MG TAB PO SCH (17:14)
[2023-02-02] MEDS: DOXYCYCLINE HYCLATE 100 MG CAP PO SCH (20:46)
[2023-02-02] MEDS: SENNA 8.6 MG TAB PO PRN (21:19)
[2023-02-03] MEDS: PANTOprazole 40 MG TAB PO SCH (06:55)
[2023-02-03] MEDS: POLYETHYLENE (MIRALAX) 17 GM PACK PO SCH (07:52)
[2023-02-03] MEDS: NICOTINE 21 MG/24 HR TDSY TD SCH (07:52)
[2023-02-03] MEDS: FLUTICASONE PROPIONATE NA SPR 16 GM BTL SCH (07:53)
[2023-02-03] MEDS: DOXYCYCLINE HYCLATE 100 MG CAP PO SCH ×2 (07:53→21:00)
[2023-02-03] MEDS: FUROSEMIDE 40 MG/4 ML VIAL IV SCH ×2 (07:53→20:58)
[2023-02-03] MEDS: ADVANCED PROBIOTIC 1250 MG CAPSULE PO SCH ×3 (07:53→20:58)
[2023-02-03] MEDS: FERROUS SULFATE 325 MG TAB PO SCH (07:54)
[2023-02-03] MEDS: FAMOTIDINE 20 MG TAB PO SCH (07:54)
[2023-02-03] MEDS: ISOSORBIDE DINITRATE 10 MG TAB PO SCH (07:54)
[2023-02-03] MEDS: FOLIC ACID 1 MG TAB PO SCH (07:54)
[2023-02-03] MEDS: DULoxetine HCL 60 MG CAP PO SCH (07:54)
[2023-02-03] MEDS: predniSONE 20 MG TAB PO SCH (07:55)
[2023-02-03] MEDS: DOCUSATE SODIUM 100 MG CAP PO SCH ×2 (07:55→20:58)
[2023-02-03] MEDS: GABAPENTIN 800 MG TAB PO SCH ×3 (07:55→20:57)
[2023-02-03] MEDS: TAMSULOSIN HCL 0.4 MG CAP PO SCH (07:55)
[2023-02-03] MEDS: DICLOFENAC SOD 1% GEL 100 GM TUBE EXT SCH ×2 (07:55→21:00)
[2023-02-03] MEDS: FINASTERIDE 5 MG TAB PO SCH (07:55)
[2023-02-03] MEDS: SENNA 8.6 MG TAB PO PRN (07:55)
[2023-02-03] MEDS: CYCLOBENZAPRINE HCL 10 MG TAB PO PRN ×2 (07:56→21:18)
[2023-02-03] MEDS: buprenorphine HCL 8 MG SUBL SL SCH ×3 (07:56→21:56)
[2023-02-03] MEDS: HYDROcodone/HOMATROPINE SYRUP 5MG/1.5MG 5ML UDP PO PRN ×3 (07:56→21:18)
[2023-02-03] MEDS: LORazepam 0.5 MG TAB PO PRN ×2 (07:56→21:18)
[2023-02-03] MEDS: METOPROLOL SUCC 25MG EXT REL TAB PO SCH ×2 (07:56→21:04)
[2023-02-03] MEDS: INSULIN ASPART PER UNIT CHARGE SC SCH ×4 (08:02→20:56)
[2023-02-03] MEDS: LANTUS PER UNIT CHARGE SC SCH ×2 (08:03→20:56)
[2023-02-03 09:01] LABS: INR 1.7 (0.9-1.1); Prothrombin Time 17.8 Seconds (9.0-12.0)
[2023-02-03] MEDS: ACETAMINOPHEN 1,000 MG/100 ML VIAL IV SCH ×2 (10:11→22:14)
[2023-02-03] MEDS: cefTRIAXone SODIUM 2,000 MG in DEXTROSE 5% 50 ML IV SCH (12:21)
[2023-02-03] MEDS: ATORVASTATIN 40 MG TAB PO SCH (14:04)
--- NOTE | 2023-02-03 14:28 | XRay Report ---
XR chest 1V portable CLINICAL HISTORY: cough TECHNIQUE: Single frontal radiograph of the chest was obtained. Comparison: Comparison is made to chest radiograph 01/30/2023 FINDINGS: Exam is limited by underpenetration. Cardiomegaly is noted. A small faint airspace opacity in the rig ht lower lung. No evidence of pleural effusion or pneumothorax. IMPRESSION: Faint right lower lung airspace opacity may represent atelectasis and/or pneumonia. ACT 112: Negative or not required by law. Electronically signed by: Armand Tobar M.D. 02/03/2023 2:27 PM
[2023-02-03] MEDS: LIDOCAINE 5% 1 PATCH TD SCH (15:00)
--- NOTE | 2023-02-03 16:55 | Hospitalist Progress Note ---
Date of Service February 03, 2023 Assessment & Plan (1) Fall: (2) UTI (urinary tract infection) due to urinary indwelling catheter: (3) Generalized weakness: (4) Chronic anticoagulation: (5) (HFpEF) heart failure with preserved ejection fraction: (6) Subtherapeutic international normalized ratio (INR): (7) DM type 2 (diabetes mellitus, type 2): Plan This is a 52-year-old male who has significant past medical history of medical noncompliance, history of chronic opioid abuse, indwelling Lloyd catheter for which he has been unwilling to remove, chronic systolic CHF, HTN, HLD, insulin- dependent T2DM, COPD, morbid obesity, depression with anxiety, history of PE on chronic warfarin therapy who presents to ED secondary to fall that occurred last evening. Mechanical Fall Generalized weakness Left-sided abdominal hematoma Fall precautions PT OT Monitor CBC Waiting for rehab placement UTI-catheter induced UTI Remote H/O ESBL Urine culture grew Klebsiella pneumoniae Blood cultures negative to date On IV ceftriaxone Plan to transition to p.o. antibiotics as able COPD No exacerbation Taper down prednisone Continue home inhalers Saturating well on room air H/O PE on chronic anticoagulation with subtherapeutic INR INR 1.7 Continue Coumadin Chronic HFpEF Continue Lasix Monitor volume status, daily weight Fluid restriction DM II Continue Insulin per protocol Monitor BGs Chronic opioid use Medical noncompliance DVT Px: Coumadin CODE STATUS Full Code Admission and Anticipated Discharge Date Admission Date: January 28, 2023 Subjective Patient is seen and examined at bedside States having left sided pleuritic pain Has chronic known expectorant cough Denies any chest pain, shortness of breath Waiting for rehab placement Saturating well on room air No other complaints Review of Systems Review of Systems: All systems reviewed & are unremarkable except as noted in Subjective Physical Exam Physical Exam: Physical Exam: Vitals signs as noted above General Appearance:Morbidly Obese, no apparent distress Head: normocephalic, Atraumatic Eyes: normal inspection, EOMI Neck: supple, Trachea midline Respiratory/Chest: Decreased breath sounds, Scattered wheezes, No accessory muscle use Cardiovascular: S1, S2, No murmur Abdomen/GI:Soft, Non tender, normal Bowel sounds, Left sided ecchymosis present Extremities/Musculoskeletal:normal inspection, Trace Pedal edema, chronic venous stasis changes Neurologic/Psych:AAOX3, grossly no focal neurological deficits Skin: normal color, warm Results & Data Results & Data Vital Signs (Past 12 Hours) Vital Signs Temp Pulse Pulse Resp BP BP Pulse Ox 02/03/23 15:39 81 02/03/23 15:07 36.7 C 76 16 129/70 94 02/03/23 08:23 100 02/03/23 11:02 36.4 C L 72 20 106/61 92 02/03/23 08:10 37.0 C 69 20 122/74 100 02/03/23 07:13 64 O2 Del Method O2 Flow Rate 02/03/23 15:39 02/03/23 15:07 Room Air 02/03/23 08:23 Nasal Cannula 4 02/03/23 11:02 Room Air 02/03/23 08:10 Nasal Cannula 4 02/03/23 07:13
[2023-02-03] MEDS: WARFARIN SOD 5 MG TAB PO SCH (17:47)
[2023-02-04] MEDS: HYDROcodone/HOMATROPINE SYRUP 5MG/1.5MG 5ML UDP PO PRN ×4 (03:36→21:30)
[2023-02-04] MEDS: PANTOprazole 40 MG TAB PO SCH (05:50)
[2023-02-04 07:09] LABS: BUN Creatinine Ratio 25.3 (10-20); Calcium 9.7 mg/dl (8.6-10.3); Creatinine Clr Calc Pharmacy 197.7 ml/min; Est GFR (African American) 117.3 ml/min; Est GFR (Non-African American) 101.2 ml/min
[2023-02-04 07:13] LABS: Hematocrit (blood only) 35.9 % (42.0-52.0); Hemoglobin 11.3 g/dl (14.0-18.0)
[2023-02-04 07:22] LABS: INR 1.8 (0.9-1.1); Prothrombin Time 19.1 Seconds (9.0-12.0)
[2023-02-04] MEDS: GABAPENTIN 800 MG TAB PO SCH ×3 (09:27→21:32)
[2023-02-04] MEDS: SENNA 8.6 MG TAB PO PRN (09:27)
[2023-02-04] MEDS: NICOTINE 21 MG/24 HR TDSY TD SCH (09:27)
[2023-02-04] MEDS: DULoxetine HCL 60 MG CAP PO SCH (09:28)
[2023-02-04] MEDS: predniSONE 20 MG TAB PO SCH (09:28)
[2023-02-04] MEDS: DOCUSATE SODIUM 100 MG CAP PO SCH ×2 (09:29→21:32)
[2023-02-04] MEDS: POLYETHYLENE (MIRALAX) 17 GM PACK PO SCH (09:30)
[2023-02-04] MEDS: FUROSEMIDE 40 MG/4 ML VIAL IV SCH ×2 (09:31→21:30)
[2023-02-04] MEDS: LIDOCAINE 5% 1 PATCH TD SCH (09:31)
[2023-02-04] MEDS: DOXYCYCLINE HYCLATE 100 MG CAP PO SCH ×2 (09:32→21:32)
[2023-02-04] MEDS: METOPROLOL SUCC 25MG EXT REL TAB PO SCH ×2 (09:32→21:31)
[2023-02-04] MEDS: buprenorphine HCL 8 MG SUBL SL SCH ×3 (09:33→21:21)
[2023-02-04] MEDS: FINASTERIDE 5 MG TAB PO SCH (09:34)
[2023-02-04] MEDS: DICLOFENAC SOD 1% GEL 100 GM TUBE EXT SCH ×2 (09:34→21:29)
[2023-02-04] MEDS: CYCLOBENZAPRINE HCL 10 MG TAB PO PRN ×2 (09:34→21:31)
[2023-02-04] MEDS: FOLIC ACID 1 MG TAB PO SCH (09:35)
[2023-02-04] MEDS: FAMOTIDINE 20 MG TAB PO SCH (09:35)
[2023-02-04] MEDS: FLUTICASONE PROPIONATE NA SPR 16 GM BTL SCH (09:35)
[2023-02-04] MEDS: LORazepam 0.5 MG TAB PO PRN ×2 (09:36→21:31)
[2023-02-04] MEDS: TAMSULOSIN HCL 0.4 MG CAP PO SCH (09:36)
[2023-02-04] MEDS: FERROUS SULFATE 325 MG TAB PO SCH (09:38)
[2023-02-04] MEDS: ADVANCED PROBIOTIC 1250 MG CAPSULE PO SCH ×3 (09:41→21:31)
[2023-02-04] MEDS: ISOSORBIDE DINITRATE 10 MG TAB PO SCH (09:42)
[2023-02-04] MEDS: INSULIN ASPART PER UNIT CHARGE SC SCH ×4 (09:54→21:21)
[2023-02-04] MEDS: LANTUS PER UNIT CHARGE SC SCH ×2 (09:55→21:21)
[2023-02-04] MEDS: ACETAMINOPHEN 1,000 MG/100 ML VIAL IV PRN (11:38)
[2023-02-04] MEDS: cefTRIAXone SODIUM 2,000 MG in DEXTROSE 5% 50 ML IV SCH (12:18)
[2023-02-04] MEDS: ATORVASTATIN 40 MG TAB PO SCH (14:51)
[2023-02-04] MEDS: WARFARIN SOD 2.5 MG TAB PO SCH (17:31)
--- NOTE | 2023-02-04 19:31 | Hospitalist Progress Note ---
Date of Service February 04, 2023 Assessment & Plan (1) Fall: (2) UTI (urinary tract infection) due to urinary indwelling catheter: (3) Generalized weakness: (4) Chronic anticoagulation: (5) (HFpEF) heart failure with preserved ejection fraction: (6) Subtherapeutic international normalized ratio (INR): (7) DM type 2 (diabetes mellitus, type 2): Plan This is a 52-year-old male who has significant past medical history of medical noncompliance, history of chronic opioid abuse, indwelling Lloyd catheter for which he has been unwilling to remove, chronic systolic CHF, HTN, HLD, insulin- dependent T2DM, COPD, morbid obesity, depression with anxiety, history of PE on chronic warfarin therapy who presents to ED secondary to fall that occurred last evening. Mechanical Fall Generalized weakness Left-sided abdominal hematoma Fall precautions PT OT Monitor CBC Waiting for rehab placement UTI-catheter induced UTI Remote H/O ESBL Urine culture grew Klebsiella pneumoniae Blood cultures negative to date On IV ceftriaxone Plan to transition to p.o. antibiotics tomorrow COPD No exacerbation Taper down prednisone Continue home inhalers Saturating well on room air H/O PE on chronic anticoagulation with subtherapeutic INR INR 1.8 today Continue Coumadin Chronic HFpEF Continue Lasix Monitor volume status, daily weight Fluid restriction DM II Continue Insulin per protocol Monitor BGs Chronic opioid use Medical noncompliance DVT Px: Coumadin CODE STATUS Full Code Admission and Anticipated Discharge Date Admission Date: January 28, 2023 Subjective Patient is seen and examined at bedside No new complaints Waiting for rehab placement Left-sided pleuritic pain is controlled Has chronic known expectorant cough Denies any dizziness, nausea, vomiting, abdominal pain Review of Systems Review of Systems: All systems reviewed & are unremarkable except as noted in Subjective Physical Exam Physical Exam: Physical Exam: Vitals signs as noted above General Appearance:Morbidly Obese, no apparent distress Head: normocephalic, Atraumatic Eyes: normal inspection, EOMI Neck: supple, Trachea midline Respiratory/Chest: Decreased breath sounds, Scattered wheezes, No accessory muscle use Cardiovascular: S1, S2, No murmur Abdomen/GI:Soft, Non tender, normal Bowel sounds, Left sided ecchymosis present Extremities/Musculoskeletal:normal inspection, Trace Pedal edema, chronic venous stasis changes Neurologic/Psych:AAOX3, grossly no focal neurological deficits Skin: normal color, warm Results & Data Results & Data Vital Signs (Past 12 Hours) Vital Signs Temp Pulse Pulse Resp BP BP Pulse Ox 02/04/23 17:42 96 02/04/23 16:08 36.9 C 75 18 104/68 91 02/04/23 14:12 78 02/04/23 11:53 36.7 C 75 18 114/64 91 02/04/23 11:10 02/04/23 07:55 37.0 C 76 18 150/49 H 91 O2 Del Method O2 Flow Rate 02/04/23 17:42 Nasal Cannula 3 02/04/23 16:08 Room Air 02/04/23 14:12 02/04/23 11:53 Room Air 02/04/23 11:10 Room Air 02/04/23 07:55 Room Air
[2023-02-05] MEDS: PANTOprazole 40 MG TAB PO SCH (05:20)
[2023-02-05] MEDS: HYDROcodone/HOMATROPINE SYRUP 5MG/1.5MG 5ML UDP PO PRN ×4 (05:20→23:52)
[2023-02-05 08:19] LABS: BUN Creatinine Ratio 30.9 (10-20); Calcium 9.9 mg/dl (8.6-10.3); Creatinine Clr Calc Pharmacy 200.5 ml/min; Est GFR (African American) 118.4 ml/min; Est GFR (Non-African American) 102.2 ml/min; Potassium 3.8 mmol/L (3.5-5.1)
[2023-02-05 08:34] LABS: INR 1.9 (0.9-1.1); Prothrombin Time 20.1 Seconds (9.0-12.0)
[2023-02-05] MEDS: ISOSORBIDE DINITRATE 10 MG TAB PO SCH (08:44)
[2023-02-05] MEDS: FINASTERIDE 5 MG TAB PO SCH (08:45)
[2023-02-05] MEDS: DULoxetine HCL 60 MG CAP PO SCH (08:45)
[2023-02-05] MEDS: predniSONE 20 MG TAB PO SCH (08:45)
[2023-02-05] MEDS: SENNA 8.6 MG TAB PO PRN (08:45)
[2023-02-05] MEDS: TAMSULOSIN HCL 0.4 MG CAP PO SCH (08:45)
[2023-02-05] MEDS: FAMOTIDINE 20 MG TAB PO SCH (08:46)
[2023-02-05] MEDS: FERROUS SULFATE 325 MG TAB PO SCH (08:46)
[2023-02-05] MEDS: FOLIC ACID 1 MG TAB PO SCH (08:46)
[2023-02-05] MEDS: DICLOFENAC SOD 1% GEL 100 GM TUBE EXT SCH ×2 (08:47→20:37)
[2023-02-05] MEDS: GABAPENTIN 800 MG TAB PO SCH ×3 (08:47→20:36)
[2023-02-05] MEDS: FLUTICASONE PROPIONATE NA SPR 16 GM BTL SCH (08:47)
[2023-02-05] MEDS: buprenorphine HCL 8 MG SUBL SL SCH ×3 (08:47→20:36)
[2023-02-05] MEDS: LIDOCAINE 5% 1 PATCH TD SCH (08:48)
[2023-02-05] MEDS: ADVANCED PROBIOTIC 1250 MG CAPSULE PO SCH ×3 (08:48→20:36)
[2023-02-05] MEDS: POLYETHYLENE (MIRALAX) 17 GM PACK PO SCH (08:49)
[2023-02-05] MEDS: NICOTINE 21 MG/24 HR TDSY TD SCH (08:49)
[2023-02-05] MEDS: INSULIN ASPART PER UNIT CHARGE SC SCH ×4 (08:50→20:37)
[2023-02-05] MEDS: LANTUS PER UNIT CHARGE SC SCH ×2 (08:50→20:37)
[2023-02-05] MEDS: METOPROLOL SUCC 25MG EXT REL TAB PO SCH ×2 (08:51→20:36)
[2023-02-05] MEDS: CYCLOBENZAPRINE HCL 10 MG TAB PO PRN ×2 (08:53→20:36)
[2023-02-05] MEDS: LORazepam 0.5 MG TAB PO PRN ×2 (08:53→20:36)
[2023-02-05] MEDS: DOCUSATE SODIUM 100 MG CAP PO SCH ×2 (09:59→20:40)
[2023-02-05] MEDS: DOXYCYCLINE HYCLATE 100 MG CAP PO SCH ×2 (09:59→20:36)
[2023-02-05] MEDS: ACETAMINOPHEN 1,000 MG/100 ML VIAL IV PRN ×2 (10:25→22:54)
[2023-02-05] MEDS: FUROSEMIDE 40 MG TAB PO SCH ×2 (10:29→18:08)
[2023-02-05] MEDS: CEFDINIR 300 MG CAP PO SCH ×2 (10:29→20:36)
[2023-02-05] MEDS: PROMETHAZINE HCL 12.5 MG in SODIUM CHLORIDE 0.9% 50 ML IV PRN (11:58)
[2023-02-05] MEDS: ATORVASTATIN 40 MG TAB PO SCH (14:27)
[2023-02-05] MEDS: WARFARIN SOD 5 MG TAB PO SCH (18:07)
--- NOTE | 2023-02-05 18:44 | Hospitalist Progress Note ---
Date of Service February 05, 2023 Assessment & Plan (1) Fall: (2) UTI (urinary tract infection) due to urinary indwelling catheter: (3) Generalized weakness: (4) Chronic anticoagulation: (5) (HFpEF) heart failure with preserved ejection fraction: (6) Subtherapeutic international normalized ratio (INR): (7) DM type 2 (diabetes mellitus, type 2): Plan This is a 52-year-old male who has significant past medical history of medical noncompliance, history of chronic opioid abuse, indwelling Lloyd catheter for which he has been unwilling to remove, chronic systolic CHF, HTN, HLD, insulin- dependent T2DM, COPD, morbid obesity, depression with anxiety, history of PE on chronic warfarin therapy who presents to ED secondary to fall that occurred last evening. Mechanical Fall Generalized weakness Left-sided abdominal hematoma Fall precautions PT OT Monitor CBC Waiting for rehab placement UTI-catheter induced UTI Remote H/O ESBL Urine culture grew Klebsiella pneumoniae Blood cultures negative to date On IV ceftriaxone>> transition to cefdinir to complete the course Constipation Started on bowel regimen COPD No exacerbation Continue home inhalers Saturating well on room air Taper down prednisone as able H/O PE on chronic anticoagulation with subtherapeutic INR INR 1.9 today Continue Coumadin Chronic HFpEF Continue Lasix Monitor volume status, daily weight Fluid restriction DM II Continue Insulin per protocol Monitor BGs Chronic opioid use Medical noncompliance DVT Px: Coumadin CODE STATUS Full Code Admission and Anticipated Discharge Date Admission Date: January 28, 2023 Subjective Patient is seen and examined at bedside Reports constipation Left-sided pleuritic pain is controlled chronic cough Denies any dizziness, nausea, vomiting, abdominal pain Waiting for rehab placement Review of Systems Review of Systems: All systems reviewed & are unremarkable except as noted in Subjective Physical Exam Physical Exam: Physical Exam: Vitals signs as noted above General Appearance:Morbidly Obese, no apparent distress Head: normocephalic, Atraumatic Eyes: normal inspection, EOMI Neck: supple, Trachea midline Respiratory/Chest: Decreased breath sounds, Scattered wheezes, No accessory muscle use Cardiovascular: S1, S2, No murmur Abdomen/GI:Soft, Non tender, normal Bowel sounds, Left sided ecchymosis present Extremities/Musculoskeletal:normal inspection, Trace Pedal edema, chronic venous stasis changes Neurologic/Psych:AAOX3, grossly no focal neurological deficits Skin: normal color, warm Results & Data Results & Data Vital Signs (Past 12 Hours) Vital Signs Temp Pulse Resp BP Pulse Ox O2 Del Method 02/05/23 14:55 36.8 C 75 18 121/68 95 Room Air 02/05/23 11:43 Room Air 02/05/23 10:37 Room Air 02/05/23 07:36 36.8 C 69 20 134/79 94 Room Air Laboratory Results [facility] 02/05/23 07:15 Sodium 140 Potassium 3.8 Chloride 101 Carbon Dioxide 37 H BUN 25 H Creatinine 0.81 Glucose 131 H Calcium 9.9
[2023-02-05] MEDS: POLYETHYLENE (MIRALAX) 17 GM PACK PO PRN (20:49)
[2023-02-06] MEDS: HYDROcodone/HOMATROPINE SYRUP 5MG/1.5MG 5ML UDP PO PRN ×4 (05:46→23:48)
[2023-02-06] MEDS: PANTOprazole 40 MG TAB PO SCH (05:46)
[2023-02-06 06:41] LABS: BUN Creatinine Ratio 26.8 (10-20); Calcium 9.4 mg/dl (8.6-10.3); Creatinine Clr Calc Pharmacy 198.8 ml/min; Est GFR (African American) 117.8 ml/min; Est GFR (Non-African American) 101.7 ml/min
[2023-02-06 06:52] LABS: INR 1.9 (0.9-1.1); Prothrombin Time 19.9 Seconds (9.0-12.0)
[2023-02-06] MEDS: predniSONE 20 MG TAB PO SCH (07:49)
[2023-02-06] MEDS: FERROUS SULFATE 325 MG TAB PO SCH (07:49)
[2023-02-06] MEDS: ADVANCED PROBIOTIC 1250 MG CAPSULE PO SCH ×3 (07:49→20:32)
[2023-02-06] MEDS: FOLIC ACID 1 MG TAB PO SCH (07:50)
[2023-02-06] MEDS: TAMSULOSIN HCL 0.4 MG CAP PO SCH (07:50)
[2023-02-06] MEDS: DULoxetine HCL 60 MG CAP PO SCH (07:50)
[2023-02-06] MEDS: CEFDINIR 300 MG CAP PO SCH ×2 (07:50→20:35)
[2023-02-06] MEDS: FAMOTIDINE 20 MG TAB PO SCH (07:50)
[2023-02-06] MEDS: METOPROLOL SUCC 25MG EXT REL TAB PO SCH ×2 (07:50→20:34)
[2023-02-06] MEDS: DOXYCYCLINE HYCLATE 100 MG CAP PO SCH ×2 (07:50→20:32)
[2023-02-06] MEDS: GABAPENTIN 800 MG TAB PO SCH ×3 (07:51→20:34)
[2023-02-06] MEDS: SENNA 8.6 MG TAB PO PRN (07:51)
[2023-02-06] MEDS: ISOSORBIDE DINITRATE 10 MG TAB PO SCH (07:51)
[2023-02-06] MEDS: POLYETHYLENE (MIRALAX) 17 GM PACK PO PRN (07:52)
[2023-02-06] MEDS: NICOTINE 21 MG/24 HR TDSY TD SCH (07:52)
[2023-02-06] MEDS: DICLOFENAC SOD 1% GEL 100 GM TUBE EXT SCH ×2 (07:53→20:34)
[2023-02-06] MEDS: LIDOCAINE 5% 1 PATCH TD SCH (07:53)
[2023-02-06] MEDS: INSULIN ASPART PER UNIT CHARGE SC SCH ×4 (09:19→20:27)
[2023-02-06] MEDS: LANTUS PER UNIT CHARGE SC SCH ×2 (09:24→20:27)
[2023-02-06] MEDS: FUROSEMIDE 40 MG TAB PO SCH ×2 (09:30→17:58)
[2023-02-06] MEDS: LORazepam 0.5 MG TAB PO PRN ×2 (09:30→20:32)
[2023-02-06] MEDS: DOCUSATE SODIUM 100 MG CAP PO SCH ×2 (09:30→20:32)
[2023-02-06] MEDS: CYCLOBENZAPRINE HCL 10 MG TAB PO PRN ×2 (09:30→20:32)
[2023-02-06] MEDS: buprenorphine HCL 8 MG SUBL SL SCH ×3 (09:30→20:32)
[2023-02-06] MEDS: bisacodyL 5 MG TABEC PO PRN (09:30)
[2023-02-06] MEDS: FLUTICASONE PROPIONATE NA SPR 16 GM BTL SCH (09:30)
[2023-02-06] MEDS: FINASTERIDE 5 MG TAB PO SCH (09:31)
[2023-02-06] MEDS: ACETAMINOPHEN 1,000 MG/100 ML VIAL IV PRN ×2 (11:30→23:46)
[2023-02-06] MEDS: ATORVASTATIN 40 MG TAB PO SCH (14:50)
--- NOTE | 2023-02-06 17:18 | Hospitalist Progress Note ---
Date of Service February 06, 2023 Assessment & Plan (1) Fall: (2) UTI (urinary tract infection) due to urinary indwelling catheter: (3) Generalized weakness: (4) Chronic anticoagulation: (5) (HFpEF) heart failure with preserved ejection fraction: (6) Subtherapeutic international normalized ratio (INR): (7) DM type 2 (diabetes mellitus, type 2): Plan This is a 52-year-old male who has significant past medical history of medical noncompliance, history of chronic opioid abuse, indwelling Lloyd catheter for which he has been unwilling to remove, chronic systolic CHF, HTN, HLD, insulin- dependent T2DM, COPD, morbid obesity, depression with anxiety, history of PE on chronic warfarin therapy who presents to ED secondary to fall that occurred last evening. Mechanical Fall Generalized weakness Left-sided abdominal hematoma Fall precautions PT OT Monitor CBC Waiting for rehab placement Case management working on discharge planning UTI-catheter induced UTI Remote H/O ESBL Urine culture grew Klebsiella pneumoniae Blood cultures negative to date On IV ceftriaxone>> transition to cefdinir to complete the course Constipation Resolved Continue bowel regimen COPD No exacerbation Continue home inhalers Saturating well on room air Taper down prednisone as able H/O PE on chronic anticoagulation with subtherapeutic INR INR 1.9 today Continue Coumadin Chronic HFpEF Continue Lasix Monitor volume status, daily weight Fluid restriction DM II Continue Insulin per protocol Monitor BGs Chronic opioid use Medical noncompliance DVT Px: Coumadin CODE STATUS Full Code Admission and Anticipated Discharge Date Admission Date: January 28, 2023 Subjective Patient is seen and examined at bedside constipation resolved, had BM Denies any pleuritic pain today chronic cough Denies any dizziness, nausea, vomiting, abdominal pain Waiting for rehab placement Review of Systems 2 Review of Systems: All systems reviewed & are unremarkable except as noted in Subjective Physical Exam Physical Exam: Physical Exam: Vitals signs as noted above General Appearance:Morbidly Obese, no apparent distress Head: normocephalic, Atraumatic Eyes: normal inspection, EOMI Neck: supple, Trachea midline Respiratory/Chest: Decreased breath sounds, Scattered wheezes, No accessory muscle use Cardiovascular: S1, S2, No murmur Abdomen/GI:Soft, Non tender, normal Bowel sounds, Left sided ecchymosis present Extremities/Musculoskeletal:normal inspection, Trace Pedal edema, chronic venous stasis changes Neurologic/Psych:AAOX3, grossly no focal neurological deficits Skin: normal color, warm Results & Data Results & Data Vital Signs (Past 12 Hours) Vital Signs Temp Pulse Resp BP Pulse Ox O2 Del Method 02/06/23 15:23 37.1 C 84 18 146/63 H 95 Room Air 02/06/23 07:42 Room Air 02/06/23 07:44 36.9 C 76 18 127/71 96 Room Air Laboratory Results [facility] 02/06/23 05:46 Sodium 141 Potassium 4.0 Chloride 102 Carbon Dioxide 36 H BUN 22 Creatinine 0.82 Glucose 110 H Calcium 9.4
[2023-02-06] MEDS: WARFARIN SOD 5 MG TAB PO SCH (17:57)
[2023-02-07] MEDS: HYDROcodone/HOMATROPINE SYRUP 5MG/1.5MG 5ML UDP PO PRN ×3 (05:48→18:10)
[2023-02-07] MEDS: PANTOprazole 40 MG TAB PO SCH (05:51)
[2023-02-07 07:50] LABS: BUN Creatinine Ratio 22.8 (10-20); Calcium 9.8 mg/dl (8.6-10.3); Creatinine Clr Calc Pharmacy 177.2 ml/min; Est GFR (African American) 110.4 ml/min; Est GFR (Non-African American) 95.3 ml/min; Potassium 3.5 mmol/L (3.5-5.1); Prothrombin Time 20.8 Seconds (9.0-12.0)
[2023-02-07] MEDS: LANTUS PER UNIT CHARGE SC SCH ×2 (09:22→21:47)
[2023-02-07] MEDS: DICLOFENAC SOD 1% GEL 100 GM TUBE EXT SCH ×2 (09:22→21:27)
[2023-02-07] MEDS: LORazepam 0.5 MG TAB PO PRN ×2 (09:22→21:27)
[2023-02-07] MEDS: predniSONE 20 MG TAB PO SCH (09:23)
[2023-02-07] MEDS: NYSTATIN POWDER 15GM BTL EXT PRN (09:23)
[2023-02-07] MEDS: TAMSULOSIN HCL 0.4 MG CAP PO SCH (09:23)
[2023-02-07] MEDS: NICOTINE 21 MG/24 HR TDSY TD SCH (09:23)
[2023-02-07] MEDS: FERROUS SULFATE 325 MG TAB PO SCH (09:23)
[2023-02-07] MEDS: LIDOCAINE 5% 1 PATCH TD SCH (09:24)
[2023-02-07] MEDS: METOPROLOL SUCC 25MG EXT REL TAB PO SCH ×2 (09:24→21:38)
[2023-02-07] MEDS: ISOSORBIDE DINITRATE 10 MG TAB PO SCH (09:25)
[2023-02-07] MEDS: ADVANCED PROBIOTIC 1250 MG CAPSULE PO SCH ×3 (09:25→21:40)
[2023-02-07] MEDS: GABAPENTIN 800 MG TAB PO SCH ×3 (09:25→21:28)
[2023-02-07] MEDS: DOXYCYCLINE HYCLATE 100 MG CAP PO SCH ×2 (09:26→21:39)
[2023-02-07] MEDS: FUROSEMIDE 40 MG TAB PO SCH (09:26)
[2023-02-07] MEDS: DULoxetine HCL 60 MG CAP PO SCH (09:26)
[2023-02-07] MEDS: CEFDINIR 300 MG CAP PO SCH ×2 (09:26→21:40)
[2023-02-07] MEDS: FOLIC ACID 1 MG TAB PO SCH (09:26)
[2023-02-07] MEDS: FINASTERIDE 5 MG TAB PO SCH (09:26)
[2023-02-07] MEDS: INSULIN ASPART PER UNIT CHARGE SC SCH ×4 (09:34→21:46)
[2023-02-07] MEDS: buprenorphine HCL 8 MG SUBL SL SCH ×3 (09:39→21:47)
[2023-02-07] MEDS: CYCLOBENZAPRINE HCL 10 MG TAB PO PRN ×2 (09:39→21:27)
--- NOTE | 2023-02-07 10:08 | XRay Report ---
XR chest 1V portable CLINICAL HISTORY: sob TECHNIQUE: Single frontal radiograph of the chest was obtained. Comparison: Comparison is made to chest radiograph 02/03/2023 FINDINGS: Exam is limited by underpenetration. Cardiomegaly is noted. Previously noted right lower lung airspac e opacities no longer seen. There is mild prominence of the pulmonary vasculature. Left costophrenic angle blunting may be due to atelectasis/scarring or small left pleural effusion. IMPRESSION: 1. Cardiomegaly and mild pulmonary edema. 2. Previously noted right lower lung airspace opacity has resolved. 3. Ill-defined blunting of the left costophrenic angle may represent atelectasis/scarring or trace e ffusion. ACT 112: Negative or not required by law. Electronically signed by: Armand Tobar M.D. 02/07/2023 10:05 AM
[2023-02-07] MEDS: FLUTICASONE PROPIONATE NA SPR 16 GM BTL SCH (11:30)
[2023-02-07] MEDS: DOCUSATE SODIUM 100 MG CAP PO SCH ×2 (11:30→21:27)
[2023-02-07] MEDS: FAMOTIDINE 20 MG TAB PO SCH (11:30)
[2023-02-07] MEDS: PROMETHAZINE HCL 12.5 MG in SODIUM CHLORIDE 0.9% 50 ML IV PRN (11:30)
[2023-02-07] MEDS ORDERED: ALBUT/IPRATROP 3MG/0.5MG NEB 3 ML VIAL NEB PRN (12:05)
[2023-02-07] MEDS: ACETAMINOPHEN 1,000 MG/100 ML VIAL IV PRN (12:47)
[2023-02-07] MEDS: ATORVASTATIN 40 MG TAB PO SCH (14:37)
--- NOTE | 2023-02-07 17:04 | Hospitalist Progress Note ---
Date of Service February 07, 2023 Assessment & Plan (1) Fall: (2) UTI (urinary tract infection) due to urinary indwelling catheter: (3) Generalized weakness: (4) Chronic anticoagulation: (5) (HFpEF) heart failure with preserved ejection fraction: (6) Subtherapeutic international normalized ratio (INR): (7) DM type 2 (diabetes mellitus, type 2): Plan This is a 52-year-old male who has significant past medical history of medical noncompliance, history of chronic opioid abuse, indwelling Lloyd catheter for which he has been unwilling to remove, chronic systolic CHF, HTN, HLD, insulin- dependent T2DM, COPD, morbid obesity, depression with anxiety, history of PE on chronic warfarin therapy who presents to ED secondary to fall that occurred last evening. Mechanical Fall Generalized weakness Left-sided abdominal hematoma Fall precautions PT OT Monitor CBC Waiting for rehab placement Case management working on discharge planning UTI-catheter induced UTI Remote H/O ESBL Urine culture grew Klebsiella pneumoniae Blood cultures negative to date On IV ceftriaxone>> transition to cefdinir We will complete antibiotic course in 2 days Constipation Resolved Continue bowel regimen COPD No exacerbation Continue home inhalers Saturating well on room air Taper down prednisone as able H/O PE on chronic anticoagulation with subtherapeutic INR INR 2.0 today Continue Coumadin Chronic HFpEF Continue Lasix Monitor volume status, daily weight Fluid restriction Chest x-ray showed some pulmonary edema Continue diuretics Monitor volume status DM II Continue Insulin per protocol Monitor BGs Chronic opioid use Medical noncompliance DVT Px: Coumadin CODE STATUS Full Code Admission and Anticipated Discharge Date Admission Date: January 28, 2023 Subjective Patient is seen and examined at bedside States having some dyspnea Constipation resolved Has chronic cough Denies any chest pain, dizziness, nausea, vomiting, abdominal pain Waiting for rehab placement Review of Systems Review of Systems: All systems reviewed & are unremarkable except as noted in Subjective Physical Exam Physical Exam: Physical Exam: Vitals signs as noted above General Appearance:Morbidly Obese, no apparent distress Head: normocephalic, Atraumatic Eyes: normal inspection, EOMI Neck: supple, Trachea midline Respiratory/Chest: Decreased breath sounds, Scattered wheezes, No accessory muscle use Cardiovascular: S1, S2, No murmur Abdomen/GI:Soft, Non tender, normal Bowel sounds, Left sided ecchymosis present Extremities/Musculoskeletal:normal inspection, Trace Pedal edema, chronic venous stasis changes Neurologic/Psych:AAOX3, grossly no focal neurological deficits Skin: normal color, warm Results & Data Results & Data Vital Signs (Past 12 Hours) Vital Signs Temp Pulse Resp BP Pulse Ox O2 Del Method O2 Flow Rate 02/07/23 15:54 37.1 C 76 18 100/55 L 96 Nasal Cannula 4 02/07/23 07:25 36.5 C 73 18 170/69 H 98 Nasal Cannula 4 Laboratory Results [facility] 02/07/23 06:35 Sodium 144 Potassium 3.5 Chloride 100 Carbon Dioxide 42 H* BUN 21 Creatinine 0.92 Glucose 68 L Calcium 9.8
[2023-02-07] MEDS: FUROSEMIDE 40 MG/4 ML VIAL IV SCH (18:00)
[2023-02-07] MEDS: WARFARIN SOD 5 MG TAB PO SCH (18:28)
[2023-02-08] MEDS: ACETAMINOPHEN 1,000 MG/100 ML VIAL IV PRN ×2 (03:12→15:06)
[2023-02-08] MEDS: HYDROcodone/HOMATROPINE SYRUP 5MG/1.5MG 5ML UDP PO PRN ×4 (03:12→21:18)
[2023-02-08] MEDS: PANTOprazole 40 MG TAB PO SCH (05:41)
[2023-02-08 07:41] LABS: Hematocrit (blood only) 34.9 % (42.0-52.0); Hemoglobin 10.9 g/dl (14.0-18.0); Mean Corpuscular Hemoglobin 27.7 pg (25.0-34.0); Mean Corpuscular Hgb Conc 31.2 g/dL (32.0-36.0); Mean Corpuscular Volume 88.6 fL (80.0-100.0); Platelet Count 182 K/uL (130-400); RDW Standard Deviation 58.1 fL (36.4-46.3); Red Blood Count 3.94 M/uL (4.70-6.10); White Blood Count 12.19 K/ul (4.8-10.8)
[2023-02-08 07:57] LABS: INR 2.2 (0.9-1.1); Prothrombin Time 23.2 Seconds (9.0-12.0)
[2023-02-08 08:15] LABS: Calcium 9.4 mg/dl (8.6-10.3); Potassium 3.7 mmol/L (3.5-5.1)
[2023-02-08 08:20] LABS: BUN Creatinine Ratio 26.7 (10-20); Creatinine Clr Calc Pharmacy 189.5 ml/min; Est GFR (African American) 115.6 ml/min; Est GFR (Non-African American) 99.7 ml/min
[2023-02-08] MEDS: ADVANCED PROBIOTIC 1250 MG CAPSULE PO SCH ×3 (08:43→21:13)
[2023-02-08] MEDS: ISOSORBIDE DINITRATE 10 MG TAB PO SCH (08:43)
[2023-02-08] MEDS: METOPROLOL SUCC 25MG EXT REL TAB PO SCH ×2 (08:43→21:19)
[2023-02-08] MEDS: DULoxetine HCL 60 MG CAP PO SCH (08:44)
[2023-02-08] MEDS: CEFDINIR 300 MG CAP PO SCH ×2 (08:44→21:18)
[2023-02-08] MEDS: predniSONE 20 MG TAB PO SCH (08:44)
[2023-02-08] MEDS: FAMOTIDINE 20 MG TAB PO SCH (08:44)
[2023-02-08] MEDS: FUROSEMIDE 40 MG/4 ML VIAL IV SCH ×2 (08:44→17:14)
[2023-02-08] MEDS: NICOTINE 21 MG/24 HR TDSY TD SCH (08:44)
[2023-02-08] MEDS: GABAPENTIN 800 MG TAB PO SCH ×3 (08:44→21:13)
[2023-02-08] MEDS: FOLIC ACID 1 MG TAB PO SCH (08:44)
[2023-02-08] MEDS: FINASTERIDE 5 MG TAB PO SCH (08:44)
[2023-02-08] MEDS: DOXYCYCLINE HYCLATE 100 MG CAP PO SCH ×2 (08:44→21:19)
[2023-02-08] MEDS: FERROUS SULFATE 325 MG TAB PO SCH (08:44)
[2023-02-08] MEDS: CYCLOBENZAPRINE HCL 10 MG TAB PO PRN ×2 (08:44→21:13)
[2023-02-08] MEDS: LIDOCAINE 5% 1 PATCH TD SCH (08:45)
[2023-02-08] MEDS: DICLOFENAC SOD 1% GEL 100 GM TUBE EXT SCH ×2 (08:45→21:13)
[2023-02-08] MEDS: DOCUSATE SODIUM 100 MG CAP PO SCH ×2 (08:45→21:13)
[2023-02-08] MEDS: buprenorphine HCL 8 MG SUBL SL SCH ×3 (08:45→21:13)
[2023-02-08] MEDS: FLUTICASONE PROPIONATE NA SPR 16 GM BTL SCH (08:45)
[2023-02-08] MEDS: LORazepam 0.5 MG TAB PO PRN ×2 (08:45→21:18)
[2023-02-08] MEDS: INSULIN ASPART PER UNIT CHARGE SC SCH ×4 (09:06→21:11)
[2023-02-08] MEDS: LANTUS PER UNIT CHARGE SC SCH ×2 (09:07→21:14)
[2023-02-08] MEDS: TAMSULOSIN HCL 0.4 MG CAP PO SCH (13:13)
[2023-02-08] MEDS: ATORVASTATIN 40 MG TAB PO SCH (13:13)
[2023-02-08] MEDS: CARBAMIDE PEROXIDE 6.5% 15 ML BTL OT SCH (15:12)
--- NOTE | 2023-02-08 15:24 | Hospitalist Progress Note ---
Date of Service February 08, 2023 Assessment & Plan (1) Fall: (2) UTI (urinary tract infection) due to urinary indwelling catheter: (3) Generalized weakness: (4) Chronic anticoagulation: (5) (HFpEF) heart failure with preserved ejection fraction: (6) Subtherapeutic international normalized ratio (INR): (7) DM type 2 (diabetes mellitus, type 2): Plan This is a 52-year-old male who has significant past medical history of medical noncompliance, history of chronic opioid abuse, indwelling Lloyd catheter for which he has been unwilling to remove, chronic systolic CHF, HTN, HLD, insulin- dependent T2DM, COPD, morbid obesity, depression with anxiety, history of PE on chronic warfarin therapy who presents to ED secondary to fall that occurred last evening. Mechanical Fall Generalized weakness Left-sided abdominal hematoma Fall precautions PT OT Monitor CBC PT recommends: Return Home Patient insists on rehab placement Case management working on discharge planning UTI-catheter induced UTI Remote H/O ESBL Urine culture grew Klebsiella pneumoniae Blood cultures negative to date On IV ceftriaxone>> transition to cefdinir We will complete antibiotic course tomorrow Constipation Resolved Continue bowel regimen COPD No exacerbation Continue home inhalers Saturating well on room air Taper down prednisone as able H/O PE on chronic anticoagulation with subtherapeutic INR INR 2.2 today Continue Coumadin Chronic HFpEF Continue Lasix Monitor volume status, daily weight Fluid restriction Chest x-ray showed some pulmonary edema Continue diuretics Monitor volume status DM II Continue Insulin per protocol Monitor BGs Chronic opioid use Medical noncompliance DVT Px: Coumadin CODE STATUS Full Code Admission and Anticipated Discharge Date Admission Date: January 28, 2023 Subjective Patient is seen and examined at bedside No new complaints Insists on going to rehab Has chronic cough, MAXWELL Denies any chest pain, dizziness, nausea, vomiting, abdominal pain Waiting for rehab placement Review of Systems Review of Systems: All systems reviewed & are unremarkable except as noted in Subjective Physical Exam Physical Exam: Physical Exam: Vitals signs as noted above General Appearance:Morbidly Obese, no apparent distress Head: normocephalic, Atraumatic Eyes: normal inspection, EOMI Neck: supple, Trachea midline Respiratory/Chest: Decreased coarse breath sounds, No accessory muscle use Cardiovascular: S1, S2, No murmur Abdomen/GI:Soft, Non tender, normal Bowel sounds, Left sided ecchymosis improved Extremities/Musculoskeletal:normal inspection, Trace Pedal edema, chronic venous stasis changes Neurologic/Psych:AAOX3, grossly no focal neurological deficits Skin: normal color, warm Results & Data Results & Data Vital Signs (Past 12 Hours) Vital Signs Temp Pulse Resp BP Pulse Ox O2 Del Method 02/08/23 15:12 36.9 C 80 18 106/57 L 92 Room Air 02/08/23 07:48 36.5 C 67 18 113/66 99 Room Air Laboratory Results Short CBC 02/08/23 Range/Units 06:40 WBC 12.19 H (4.8-10.8) K/ul Hgb 10.9 L (14.0-18.0) g/dl Hct 34.9 L (42.0-52.0) % Plt Count 182 (130-400) K/uL BMP 02/08/23 06:40 Sodium 141 Potassium 3.7 Chloride 100 Carbon Dioxide 40 H BUN 23 Creatinine 0.86 Glucose 121 H Calcium 9.4
[2023-02-08] MEDS: PROMETHAZINE HCL 12.5 MG in SODIUM CHLORIDE 0.9% 50 ML IV PRN (17:13)
[2023-02-08] MEDS: WARFARIN SOD 5 MG TAB PO SCH (17:14)
[2023-02-09] MEDS: ACETAMINOPHEN 1,000 MG/100 ML VIAL IV PRN ×2 (03:01→15:12)
[2023-02-09] MEDS: HYDROcodone/HOMATROPINE SYRUP 5MG/1.5MG 5ML UDP PO PRN ×4 (03:01→21:38)
[2023-02-09] MEDS: PANTOprazole 40 MG TAB PO SCH (05:56)
[2023-02-09 08:15] LABS: INR 2.4 (0.9-1.1); Prothrombin Time 24.8 Seconds (9.0-12.0)
[2023-02-09 08:20] LABS: BUN Creatinine Ratio 28.7 (10-20); Calcium 9.4 mg/dl (8.6-10.3); Creatinine Clr Calc Pharmacy 187.6 ml/min; Est GFR (Non-African American) 99.2 ml/min; Potassium 3.6 mmol/L (3.5-5.1)
[2023-02-09] MEDS: DOCUSATE SODIUM 100 MG CAP PO SCH ×2 (09:00→21:38)
[2023-02-09] MEDS: CEFDINIR 300 MG CAP PO SCH (09:00)
[2023-02-09] MEDS: buprenorphine HCL 8 MG SUBL SL SCH ×3 (09:00→21:38)
[2023-02-09] MEDS: ADVANCED PROBIOTIC 1250 MG CAPSULE PO SCH ×3 (09:00→21:30)
[2023-02-09] MEDS: predniSONE 20 MG TAB PO SCH (09:01)
[2023-02-09] MEDS: DULoxetine HCL 60 MG CAP PO SCH (09:01)
[2023-02-09] MEDS: FERROUS SULFATE 325 MG TAB PO SCH (09:01)
[2023-02-09] MEDS: LIDOCAINE 5% 1 PATCH TD SCH (09:01)
[2023-02-09] MEDS: FAMOTIDINE 20 MG TAB PO SCH (09:01)
[2023-02-09] MEDS: FINASTERIDE 5 MG TAB PO SCH (09:01)
[2023-02-09] MEDS: NICOTINE 21 MG/24 HR TDSY TD SCH (09:01)
[2023-02-09] MEDS: CARBAMIDE PEROXIDE 6.5% 15 ML BTL OT SCH (09:02)
[2023-02-09] MEDS: FUROSEMIDE 40 MG/4 ML VIAL IV SCH ×2 (09:02→17:44)
[2023-02-09] MEDS: DICLOFENAC SOD 1% GEL 100 GM TUBE EXT SCH ×2 (09:02→21:30)
[2023-02-09] MEDS: ISOSORBIDE DINITRATE 10 MG TAB PO SCH (09:03)
[2023-02-09] MEDS: DOXYCYCLINE HYCLATE 100 MG CAP PO SCH (09:03)
[2023-02-09] MEDS: FLUTICASONE PROPIONATE NA SPR 16 GM BTL SCH (09:03)
[2023-02-09] MEDS: FOLIC ACID 1 MG TAB PO SCH (09:04)
[2023-02-09] MEDS: TAMSULOSIN HCL 0.4 MG CAP PO SCH (09:04)
[2023-02-09] MEDS: GABAPENTIN 800 MG TAB PO SCH ×3 (09:04→21:30)
[2023-02-09] MEDS: INSULIN ASPART PER UNIT CHARGE SC SCH ×4 (09:16→21:38)
[2023-02-09] MEDS: LANTUS PER UNIT CHARGE SC SCH ×2 (09:16→21:39)
[2023-02-09] MEDS: CYCLOBENZAPRINE HCL 10 MG TAB PO PRN ×2 (09:23→21:38)
[2023-02-09] MEDS: LORazepam 0.5 MG TAB PO PRN ×2 (09:23→21:38)
[2023-02-09] MEDS: METOPROLOL SUCC 25MG EXT REL TAB PO SCH ×2 (10:45→21:30)
[2023-02-09] MEDS ORDERED: ACETAMINOPHEN 325 MG TAB PO PRN (11:53)
[2023-02-09] MEDS: ATORVASTATIN 40 MG TAB PO SCH (14:53)
[2023-02-09] MEDS: WARFARIN SOD 2.5 MG TAB PO SCH (15:40)
--- NOTE | 2023-02-09 17:34 | Hospitalist Progress Note ---
Date of Service February 09, 2023 Assessment & Plan (1) Fall: (2) UTI (urinary tract infection) due to urinary indwelling catheter: (3) Generalized weakness: (4) Chronic anticoagulation: (5) (HFpEF) heart failure with preserved ejection fraction: (6) Subtherapeutic international normalized ratio (INR): (7) DM type 2 (diabetes mellitus, type 2): Plan This is a 52-year-old male who has significant past medical history of medical noncompliance, history of chronic opioid abuse, indwelling Lloyd catheter for which he has been unwilling to remove, chronic systolic CHF, HTN, HLD, insulin- dependent T2DM, COPD, morbid obesity, depression with anxiety, history of PE on chronic warfarin therapy who presents to ED secondary to fall that occurred last evening. Mechanical Fall Generalized weakness Left-sided abdominal hematoma Fall precautions PT OT Monitor CBC PT recommends: Return Home Patient insists on rehab placement Case management working on discharge planning We will request PT to reeval per patient's request UTI-catheter induced UTI Remote H/O ESBL Urine culture grew Klebsiella pneumoniae Blood cultures negative to date On IV ceftriaxone>> transition to cefdinir--completed the course Constipation Resolved Continue bowel regimen COPD No exacerbation Continue home inhalers Saturating well on room air Taper down prednisone as able H/O PE on chronic anticoagulation with subtherapeutic INR INR 2.4 today Continue Coumadin Chronic HFpEF Continue Lasix Monitor volume status, daily weight Fluid restriction Chest x-ray showed some pulmonary edema Continue diuretics Monitor volume status DM II Continue Insulin per protocol Monitor BGs Chronic opioid use Medical noncompliance DVT Px: Coumadin CODE STATUS Full Code Admission and Anticipated Discharge Date Admission Date: January 28, 2023 Subjective Patient is seen and examined at bedside States feeling well Persistent to be discharged to rehab No new complaints Reports chronic cough, dyspnea on exertion Denies any chest pain, dizziness, nausea, vomiting, abdominal pain We will request PT to reeval Review of Systems Review of Systems: All systems reviewed & are unremarkable except as noted in Subjective Physical Exam Physical Exam: Physical Exam: Vitals signs as noted above General Appearance:Morbidly Obese, no apparent distress Head: normocephalic, Atraumatic Eyes: normal inspection, EOMI Neck: supple, Trachea midline Respiratory/Chest: Decreased coarse breath sounds, No accessory muscle use Cardiovascular: S1, S2, No murmur Abdomen/GI:Soft, Non tender, normal Bowel sounds, Left sided ecchymosis improved Extremities/Musculoskeletal:normal inspection, Trace Pedal edema, chronic venous stasis changes Neurologic/Psych:AAOX3, grossly no focal neurological deficits Skin: normal color, warm Results & Data Results & Data Vital Signs (Past 12 Hours) Vital Signs Temp Pulse Resp BP Pulse Ox O2 Del Method 02/09/23 15:13 36.7 C 84 18 133/68 96 Room Air 02/09/23 12:36 97 02/09/23 07:37 36.5 C 71 18 142/75 H 99 Nasal Cannula Laboratory Results [facility] 02/09/23 07:23 Sodium 141 Potassium 3.6 Chloride 101 Carbon Dioxide 39 H BUN 25 H Creatinine 0.87 Glucose 109 H Calcium 9.4
[2023-02-09] MEDS: PROMETHAZINE HCL 12.5 MG in SODIUM CHLORIDE 0.9% 50 ML IV PRN (23:27)
[2023-02-10] MEDS: HYDROcodone/HOMATROPINE SYRUP 5MG/1.5MG 5ML UDP PO PRN ×4 (03:46→21:38)
[2023-02-10] MEDS: PANTOprazole 40 MG TAB PO SCH (04:57)
[2023-02-10] MEDS: FAMOTIDINE 20 MG TAB PO SCH (08:40)
[2023-02-10] MEDS: buprenorphine HCL 8 MG SUBL SL SCH ×3 (08:40→21:39)
[2023-02-10] MEDS: LORazepam 0.5 MG TAB PO PRN ×2 (08:40→21:38)
[2023-02-10] MEDS: DOCUSATE SODIUM 100 MG CAP PO SCH ×2 (08:40→21:40)
[2023-02-10] MEDS: CYCLOBENZAPRINE HCL 10 MG TAB PO PRN ×2 (08:40→21:38)
[2023-02-10] MEDS: LIDOCAINE 5% 1 PATCH TD SCH (08:42)
[2023-02-10] MEDS: TAMSULOSIN HCL 0.4 MG CAP PO SCH (08:44)
[2023-02-10] MEDS: ADVANCED PROBIOTIC 1250 MG CAPSULE PO SCH ×3 (08:44→21:39)
[2023-02-10] MEDS: METOPROLOL SUCC 25MG EXT REL TAB PO SCH ×2 (08:44→21:43)
[2023-02-10] MEDS: predniSONE 20 MG TAB PO SCH (08:44)
[2023-02-10] MEDS: ISOSORBIDE DINITRATE 10 MG TAB PO SCH (08:45)
[2023-02-10] MEDS: GABAPENTIN 800 MG TAB PO SCH ×3 (08:45→21:40)
[2023-02-10] MEDS: DULoxetine HCL 60 MG CAP PO SCH (08:45)
[2023-02-10] MEDS: DICLOFENAC SOD 1% GEL 100 GM TUBE EXT SCH ×2 (08:45→21:40)
[2023-02-10] MEDS: FERROUS SULFATE 325 MG TAB PO SCH (08:45)
[2023-02-10] MEDS: FOLIC ACID 1 MG TAB PO SCH (08:45)
[2023-02-10] MEDS: FINASTERIDE 5 MG TAB PO SCH (08:45)
[2023-02-10] MEDS: CARBAMIDE PEROXIDE 6.5% 15 ML BTL OT SCH (08:46)
[2023-02-10] MEDS: FLUTICASONE PROPIONATE NA SPR 16 GM BTL SCH (08:46)
[2023-02-10] MEDS: NYSTATIN POWDER 15GM BTL EXT PRN (08:46)
[2023-02-10 08:48] LABS: Hematocrit (blood only) 36.4 % (42.0-52.0); Hemoglobin 11.1 g/dl (14.0-18.0); Mean Corpuscular Hemoglobin 27.3 pg (25.0-34.0); Mean Corpuscular Hgb Conc 30.5 g/dL (32.0-36.0); Mean Corpuscular Volume 89.7 fL (80.0-100.0); Mean Platelet Volume 9.9 fL (9.4-12.4); Platelet Count 182 K/uL (130-400); RDW Coefficient of Variation 17.7 % (11.5-14.5); RDW Standard Deviation 58.6 fL (36.4-46.3); Red Blood Count 4.06 M/uL (4.70-6.10); White Blood Count 13.37 K/ul (4.8-10.8)
[2023-02-10] MEDS: FUROSEMIDE 40 MG TAB PO SCH ×2 (08:48→17:19)
[2023-02-10] MEDS: LANTUS PER UNIT CHARGE SC SCH ×2 (08:48→21:38)
[2023-02-10] MEDS: NICOTINE 21 MG/24 HR TDSY TD SCH (08:48)
[2023-02-10] MEDS: INSULIN ASPART PER UNIT CHARGE SC SCH ×4 (08:55→21:38)
[2023-02-10 09:06] LABS: BUN Creatinine Ratio 23.9 (10-20); Calcium 9.6 mg/dl (8.6-10.3); Creatinine Clr Calc Pharmacy 177.2 ml/min; Est GFR (African American) 110.4 ml/min; Est GFR (Non-African American) 95.3 ml/min; Potassium 3.7 mmol/L (3.5-5.1)
[2023-02-10 09:14] LABS: INR 2.4 (0.9-1.1); Prothrombin Time 24.7 Seconds (9.0-12.0)
[2023-02-10] MEDS: KETOROLAC TROMETHAMINE 15 MG/ML VIAL IV PRN (13:10)
[2023-02-10] MEDS: ATORVASTATIN 40 MG TAB PO SCH (13:15)
[2023-02-10] MEDS: WARFARIN SOD 5 MG TAB PO SCH (17:18)
[2023-02-11] MEDS: KETOROLAC TROMETHAMINE 15 MG/ML VIAL IV PRN ×2 (01:25→12:13)
[2023-02-11] MEDS: PROMETHAZINE HCL 12.5 MG in SODIUM CHLORIDE 0.9% 50 ML IV PRN (05:21)
[2023-02-11] MEDS: PANTOprazole 40 MG TAB PO SCH (05:21)
[2023-02-11] MEDS: HYDROcodone/HOMATROPINE SYRUP 5MG/1.5MG 5ML UDP PO PRN ×2 (05:22→12:13)
[2023-02-11 09:18] LABS: INR 2.4 (0.9-1.1); Prothrombin Time 24.4 Seconds (9.0-12.0)
[2023-02-11] MEDS: FINASTERIDE 5 MG TAB PO SCH (09:44)
[2023-02-11] MEDS: SENNA 8.6 MG TAB PO PRN (09:44)
[2023-02-11] MEDS: CARBAMIDE PEROXIDE 6.5% 15 ML BTL OT SCH (09:44)
[2023-02-11] MEDS: GABAPENTIN 800 MG TAB PO SCH (09:44)
[2023-02-11] MEDS: FERROUS SULFATE 325 MG TAB PO SCH (09:45)
[2023-02-11] MEDS: predniSONE 20 MG TAB PO SCH (09:45)
[2023-02-11] MEDS: FOLIC ACID 1 MG TAB PO SCH (09:45)
[2023-02-11] MEDS: FUROSEMIDE 40 MG TAB PO SCH (09:45)
[2023-02-11] MEDS: ADVANCED PROBIOTIC 1250 MG CAPSULE PO SCH (09:46)
[2023-02-11] MEDS: ISOSORBIDE DINITRATE 10 MG TAB PO SCH (09:46)
[2023-02-11] MEDS: TAMSULOSIN HCL 0.4 MG CAP PO SCH (09:46)
[2023-02-11] MEDS: DULoxetine HCL 60 MG CAP PO SCH (09:46)
[2023-02-11] MEDS: NICOTINE 21 MG/24 HR TDSY TD SCH (09:47)
[2023-02-11] MEDS: LIDOCAINE 5% 1 PATCH TD SCH (09:47)
[2023-02-11] MEDS: DICLOFENAC SOD 1% GEL 100 GM TUBE EXT SCH (09:47)
[2023-02-11] MEDS: FLUTICASONE PROPIONATE NA SPR 16 GM BTL SCH (09:48)
[2023-02-11] MEDS: METOPROLOL SUCC 25MG EXT REL TAB PO SCH (09:49)
[2023-02-11] MEDS: FAMOTIDINE 20 MG TAB PO SCH (09:58)
[2023-02-11] MEDS: INSULIN ASPART PER UNIT CHARGE SC SCH (09:58)
[2023-02-11] MEDS: LORazepam 0.5 MG TAB PO PRN (09:58)
[2023-02-11] MEDS: DOCUSATE SODIUM 100 MG CAP PO SCH (09:58)
[2023-02-11] MEDS: CYCLOBENZAPRINE HCL 10 MG TAB PO PRN (09:58)
[2023-02-11] MEDS: buprenorphine HCL 8 MG SUBL SL SCH (09:58)
[2023-02-11] MEDS: bisacodyL 5 MG TABEC PO PRN (09:58)
[2023-02-11] MEDS ORDERED: FUROSEMIDE 40 MG/4 ML VIAL IV ONE (09:59)
[2023-02-11] MEDS: LANTUS PER UNIT CHARGE SC SCH (09:59)
--- NOTE | 2023-02-11 11:21 | Hospitalist Progress Note ---
Date of Service February 11, 2023 Assessment & Plan (1) Fall: (2) UTI (urinary tract infection) due to urinary indwelling catheter: (3) Generalized weakness: (4) Chronic anticoagulation: (5) (HFpEF) heart failure with preserved ejection fraction: (6) Subtherapeutic international normalized ratio (INR): (7) DM type 2 (diabetes mellitus, type 2): Plan This is a 52-year-old male who has significant past medical history of medical noncompliance, history of chronic opioid abuse, indwelling Lloyd catheter for which he has been unwilling to remove, chronic systolic CHF, HTN, HLD, insulin- dependent T2DM, COPD, morbid obesity, depression with anxiety, history of PE on chronic warfarin therapy who presents to ED secondary to fall that occurred last evening. Mechanical Fall Generalized weakness Left-sided abdominal hematoma Fall precautions PT OT: Recommends return Home Monitor CBC Initially patient was planned to be discharged to SNF Plan to discharge home today as patient is thought to be back to baseline UTI-catheter induced UTI Remote H/O ESBL Urine culture grew Klebsiella pneumoniae Blood cultures negative to date On IV ceftriaxone>> transition to cefdinir--completed the course Constipation Resolved Continue bowel regimen COPD No exacerbation Continue home inhalers Saturating well on room air Continue prednisone Taper course H/O PE on chronic anticoagulation with subtherapeutic INR INR 2.4 today Continue Coumadin Chronic HFpEF Continue Lasix Monitor volume status, daily weight Fluid restriction Chest x-ray showed some pulmonary edema Continue diuretics Monitor volume status DM II Continue Insulin per protocol Monitor BGs Chronic opioid use Medical noncompliance DVT Px: Coumadin CODE STATUS Full Code Disposition Home Admission and Anticipated Discharge Date Admission Date: January 28, 2023 Subjective Patient is seen and examined at bedside Feels well No new complaints Reports chronic cough, dyspnea on exertion Denies any chest pain, dizziness, nausea, vomiting, abdominal pain Plan to be discharged home today Review of Systems Review of Systems: All systems reviewed & are unremarkable except as noted in Subjective Physical Exam Physical Exam: Physical Exam: Vitals signs as noted above General Appearance:Morbidly Obese, no apparent distress Head: normocephalic, Atraumatic Eyes: normal inspection, EOMI Neck: supple, Trachea midline Respiratory/Chest: Decreased coarse breath sounds, No accessory muscle use Cardiovascular: S1, S2, No murmur Abdomen/GI:Soft, Non tender, normal Bowel sounds, Left sided ecchymosis improved Extremities/Musculoskeletal:normal inspection, Trace Pedal edema, chronic venous stasis changes Neurologic/Psych:AAOX3, grossly no focal neurological deficits Skin: normal color, warm Results & Data Results & Data Vital Signs (Past 12 Hours) Vital Signs Temp Pulse Resp BP Pulse Ox O2 Del Method O2 Flow Rate 02/11/23 07:25 36.3 C L 81 18 121/81 98 Nasal Cannula 4
--- NOTE | 2023-02-11 11:33 | Discharge Summary ---
Date of Service February 11, 2023 Admission HPI Per Admitting Provider This is a 52-year-old male who has significant past medical history of medical noncompliance, history of chronic opioid abuse, indwelling Fontaine catheter for which he has been unwilling to remove, chronic systolic CHF, HTN, HLD, insulin- dependent T2DM, COPD, morbid obesity, depression with anxiety, history of PE on chronic warfarin therapy who presents to ED secondary to fall that occurred last evening. Patient fell and tripped over his own feet last night and fell onto his left side. Ever since he has been having rib and abdominal pain. He denies any loss of consciousness or striking his head. He denies any lightheadedness, dizziness, chest pain, shortness of breath, neck pain, change in vision, change in hearing, nausea, vomiting or diarrhea. He has a chronic indwelling catheter in place. He has been compliant with his Coumadin per patient. He generally feels weak. In ED patient was found to have significant leukocytosis at 23,000, H&H 12.2 and 37.6, INR subtherapeutic at 1.6, hyperglycemia at 205 and abnormal urinalysis concerning for UTI. He underwent CT head which was negative for any acute abnormality. He also underwent chest CT that was negative, cervical CT that was negative and abdominal CT that was negative for any acute abnormality. In ED he received IV Cipro Admission Exam Per Admitting Provider Constitutional: WD/WN, smells of tobacco, vitals as above, NAD, sitting up in bed, pleasant, conversing easily Head: Normocephalic, Atraumatic Eyes: PERRL, conjunctivae normal, anicteric sclerae ENMT: external ear and nose normal, oropharynx normal dry membranes Neck: trachea midline, no thyromegaly normal visual inspection Respiratory: normal respiratory effort, b/l expiratory wheeze, no rales/rhonchi, this is his baseline. Normal insp/exp effort, no accessory muscle use Cardiovascular: RRR, no murmur, b/l chronic lymphedema with venous stasis changes chronic, no erythema Vessels: no JVD or carotid bruit Chest: normal inspection of chest Abdomen: normal bowel sounds, obese, large panus, soft, + L lateral abd wall pannus hematoma, tender and warm to touch Musculoskeletal: no cyanosis or clubbing, extremities motor strength 5/5 Skin: no rashes, warm and dry normal turgor Neurologic: PERRL, EOMI, accommodation nl, no face palsy, no dysarthria CN's II-XI intact bilaterally and moves all extremities Psychiatric: A+Ox3, euthymic affect Lymphatic: no cervical or axillary lymphadenopathy : +fontaine cath Principal Diagnosis Mechanical Fall Abdominal hematoma due to fall Complicated urinary tract infection COPD Chronic diastolic heart failure Tobacco use disorder Supratherapeutic INR Discharge Data Allergies Allergy/AdvReac Type Severity Reaction Status Date / Time cefepime Allergy Intermediate rash Verified 01/29/23 07:44 daptomycin Allergy Intermediate rash Verified 12/17/22 18:20 fentanyl Allergy Intermediate RASH/HIVES/SKIN Verified 12/17/22 18:20 REDNESS acetaminophen [From Tylenol] AdvReac Intermediate IRRITATES Verified 12/17/22 18:20 & UPSET STOMACH ibuprofen AdvReac Intermediate Nausea Verified 12/17/22 18:20 naloxone AdvReac Intermediate extremely Verified 01/29/23 07:15 sick valproic acid AdvReac Intermediate PANCREATITS Verified 12/17/22 18:20 Consultations 01/28/23 20:34 ED Decision to Admit Stat Procedures Performed Laboratory Results WBC 13.37 K/ul (4.8-10.8) H 02/10/23 08:29 RBC 4.06 M/uL (4.70-6.10) L 02/10/23 08:29 Hgb 11.1 g/dl (14.0-18.0) L 02/10/23 08:29 POC Hgb 12.6 g/dl (14.0-18.0) L 01/28/23 18:34 Hct 36.4 % (42.0-52.0) L 02/10/23 08:29 POC Hct 37 % (42-52) L 01/28/23 18:34 MCV 89.7 fL (80.0-100.0) 02/10/23 08:29 MCH 27.3 pg (25.0-34.0) 02/10/23 08:29 MCHC 30.5 g/dL (32.0-36.0) L 02/10/23 08:29 RDW Std Deviation 58.6 fL (36.4-46.3) H 02/10/23 08:29 RDW Coeff of Megan 17.7 % (11.5-14.5) H 02/10/23 08:29 Plt Count 182 K/uL (130-400) 02/10/23 08:29 MPV 9.9 fL (9.4-12.4) 02/10/23 08:29 Immature Gran % (Auto) 0.6 % 01/31/23 07:43 Neut % (Auto) 69.5 % 01/31/23 07:43 Lymph % (Auto) 22.2 % 01/31/23 07:43 [place] % (Auto) 6.2 % 01/31/23 07:43 Eos % (Auto) 1.1 % 01/31/23 07:43 Baso % (Auto) 0.4 % 01/31/23 07:43 Neut # (Auto) 11.68 K/uL (1.40-6.50) H 01/31/23 07:43 Lymph # (Auto) 3.73 K/uL (1.2-3.4) H 01/31/23 07:43 [place] # (Auto) 1.04 K/uL (0.11-0.59) H 01/31/23 07:43 Eos # (Auto) 0.18 K/uL (0-0.50) 01/31/23 07:43 Baso # (Auto) 0.07 K/uL (0-0.2) 01/31/23 07:43 Immature Gran # (Auto) 0.10 K/uL (0.01-0.20) 01/31/23 07:43 Polychromasia 1+ 01/31/23 07:43 PT 24.4 Seconds (9.0-12.0) H 02/11/23 08:17 INR 2.4 (0.9-1.1) H 02/11/23 08:17 APTT 33.0 Seconds (21.0-31.0) H 01/28/23 18:15 PTT Ratio 1.2 01/28/23 18:15 POC Sodium 135 mmol/L (135-144) 01/28/23 18:34 Sodium 141 mmol/L (136-145) 02/10/23 08:29 POC Potassium 4.3 mmol/L (3.3-5.0) 01/28/23 18:34 Potassium 3.7 mmol/L (3.5-5.1) 02/10/23 08:29 POC Chloride 92 mmol/L (101-112) L 01/28/23 18:34 Chloride 100 mmol/L (98-107) 02/10/23 08:29 Carbon Dioxide 39 mmol/L (21-32) H 02/10/23 08:29 POC Total CO2 36 mmol/L (24-31) H 01/28/23 18:34 Anion Gap 2 (3-11) L 02/10/23 08:29 POC Anion Gap 12.0 mmol/L (16-25) L 01/28/23 18:34 POC BUN 9 mg/dl (7-18) 01/28/23 18:34 BUN 22 mg/dl (6-23) 02/10/23 08:29 Creatinine 0.92 mg/dl (0.6-1.4) 02/10/23 08:29 POC Creatinine 0.8 mg/dl (0.6-1.3) 01/28/23 18:34 Est Cr Clr Drug Dosing 177.2 ml/min 02/10/23 08:29 Est GFR ( Amer) 110.4 ml/min 02/10/23 08:29 Est GFR (Non-Af Amer) 95.3 ml/min 02/10/23 08:29 BUN/Creatinine Ratio 23.9 (10-20) H 02/10/23 08:29 Glucose 165 mg/dl (70-99(Fasting)) H 02/10/23 08:29 POC Glucose 102 mg/dl (70-99) H 02/11/23 08:16 POC Glucose (other) 203 mg/dl (70-99) H 01/28/23 18:34 Lactate 1.5 mmol/L (0.4-2.0) 01/28/23 21:28 Calcium 9.6 mg/dl (8.6-10.3) 02/10/23 08:29 POC Ioniz Calcium Vera 1.23 mmol/l (1.12-1.32) 01/28/23 18:34 Magnesium 1.9 mg/dl (1.7-2.4) 01/28/23 17:42 Total Bilirubin 0.6 mg/dl (0.2-1.0) 01/28/23 17:42 AST 12 U/L (13-39) L 01/28/23 17:42 ALT 19 U/L (7-52) 01/28/23 17:42 Alkaline Phosphatase 109 U/L (34-104) H 01/28/23 17:42 Troponin I High Sens 10.8 pg/ml (0-20) 01/28/23 17:42 Total Protein 6.4 gm/dl (6.0-8.3) 01/28/23 17:42 Albumin 3.6 gm/dl (3.4-5.0) 01/28/23 17:42 Globulin 2.8 gm/dl (2.5-4.0) 01/28/23 17:42 Albumin/Globulin Ratio 1.3 (0.9-2) 01/28/23 17:42 Urine Color Yellow 01/28/23 19:56 Urine Appearance Clear (Clear) 01/28/23 19:56 Urine pH 7.0 (4.5-7.5) 01/28/23 19:56 Ur Specific [place] > 1.045 (1.000-1.030) H 01/28/23 19:56 Urine Protein 1+ (Negative) H 01/28/23 19:56 Urine Glucose (UA) Negative (Negative) 01/28/23 19:56 Urine Ketones Negative (Negative) 01/28/23 19:56 Urine Blood 2+ (Negative) H 01/28/23 19:56 Urine Nitrite Positive (Negative) A 01/28/23 19:56 Urine Bilirubin Negative (Negative) 01/28/23 19:56 Urine Urobilinogen Negative (Negative) 01/28/23 19:56 Ur Leukocyte Esterase 1+ (Negative) H 01/28/23 19:56 Urine WBC (Auto) >30 /hpf (0-5) H 01/28/23 19:56 Urine RBC (Auto) 10-30 /hpf (0-4) H 01/28/23 19:56 U Hyaline Cast (Auto) 1-5 /lpf (0-5) 01/28/23 19:56 U Epithel Cells (Auto) >30 /lpf (0-5) H 01/28/23 19:56 Urine Bacteria (Auto) 4+ (Negative) H 01/28/23 19:56 SARS-CoV-2, RNA, NAAT NEGATIVE (NEGATIVE) 01/28/23 18:16 Group A Strep (Molecular) Negative (Negative) 01/29/23 Unknown Group A Strep (PCR) Cancelled 01/29/23 Unknown Impressions Abdomen/Pelvis CT 01/28/23 18:04 CT abd pelvis IV con only CLINICAL HISTORY: Trauma TECHNIQUE: Helical axial images of the abdomen and pelvis were obtained and displayed. Automated dose lowering techniques and/or adjustment according to patient size were utilized for this exam. This exam was performed with intravenous contrast. COMPARISON: Comparison is made to CT abdomen pelvis 10/26/2022 FINDINGS: Lower chest: For findings above the diaphragm, please see CT chest performed same day. Liver: Unremarkable. No focal lesions are seen. Gallbladder and biliary tree: The gallbladder is contracted. No intra- or extrahepatic biliary ductal dilation. Pancreas: Fatty replacement of the pancreas is seen. Spleen: Unremarkable. Adrenals: Unremarkable. Kidneys and ureters: Nonobstructive nephrolithiasis is seen. Bladder: Fontaine catheter is seen. Reproductive organs: Unremarkable. Bowel: Unremarkable. Lymph nodes Retroperitoneal: Unremarkable. Pelvic: Prominent subcentimeter inguinal nodes are noted. Mesenteric: Unremarkable. Peritoneum: Normal. Vessels: Unremarkable. Abdominal wall: A fat-containing umbilical hernia is seen. Bones: Degenerative changes in the visualized spine. IMPRESSION: No acute abnormalities and in particular no evidence of acute fracture. ACT 112: Negative or not required by law. Electronically signed by: Armand Tobar M.D. 01/28/2023 7:[address] 01/28/23 18:04 CT cervical spine wo con CLINICAL HISTORY: Trauma TECHNIQUE: Multidetector row helical CT of the cervical spine was performed without administration of intravenous contrast. Coronal and sagittal reformations were obtained. Automated dose lowering techniques and/or adjustment according to patient size were utilized for this exam. Comparison: None available at the time of this dictation. FINDINGS: No acute fractures or subluxations are identified. The vertebral body heights and disk spaces are well maintained. The alignment is normal. Soft tissues are unremarkable. IMPRESSION: No evidence of acute bony injury. ACT 112: Negative or not required by law. Electronically signed by: Armand Tobar M.D. 01/28/2023 7:[address] 01/28/23 18:04 CT chest diagnostic w con CLINICAL HISTORY: Trauma TECHNIQUE: Multidetector row helical CT of the chest was performed with intravenous contrast. Coronal and sagittal reformations were obtained. Automated dose lowering techniques and/or adjustment according to patient size were utilized for this exam. Comparison: Comparison is made to CTA chest 10/31/2020 FINDINGS: Lungs and pleura: Atelectasis versus scarring is seen in the dependent portions of the lungs. Bronchial wall thickening is seen. Heart and pericardium: Heart size is normal. No pericardial effusion. Vessels: Unremarkable. Mediastinum and brenda: Unremarkable. Chest wall and lower neck: Gynecomastia is noted bilaterally. Abdomen: For findings below the diaphragm, please refer to CT of the abdomen dated the same. Bones: Unremarkable. IMPRESSION: No acute abnormalities and in particular no acute fracture. ACT 112: Negative or not required by law. Electronically signed by: Armand Tobar M.D. 01/28/2023 7:[address] 01/28/23 18:04 CT head/brain wo con CLINICAL HISTORY: Trauma Technique: Contiguous axial CT images of the head were acquired from the base of the skull to the vertex without intravenous contrast administration. Images were viewed in brain, subdural and bone windows. Automated dose lowering techniques and/or adjustment according to patient size were utilized for this exam. Comparison: Comparison is made to CT head 12/17/2022 Findings: The ventricles, basal cisterns, and cerebral sulci are normal. There is no acute intracranial hemorrhage or evidence of acute territorial infarction. Neither mass effect, shift of the midline structures, nor abnormal extra-axial fluid collections are shown. Right maxillary sinus opacification is seen. Left mastoid air cell opacification may represent mastoiditis. The orbits appear normal. There are no acute fractures of the calvaria or scalp swelling. Impression: No acute intracranial hemorrhage, no evidence of acute territorial infarction or other acute intracranial disease process. ACT 112: Negative or not required by law. Electronically signed by: Armand Tobar M.D. 01/28/2023 7:26 PM Chest X-Ray 02/07/23 09:39 XR chest 1V portable CLINICAL HISTORY: sob TECHNIQUE: Single frontal radiograph of the chest was obtained. Comparison: Comparison is made to chest radiograph 02/03/2023 FINDINGS: Exam is limited by underpenetration. Cardiomegaly is noted. Previously noted right lower lung airspace opacities no longer seen. There is mild prominence of the pulmonary vasculature. Left costophrenic angle blunting may be due to atelectasis/scarring or small left pleural effusion. IMPRESSION: 1. Cardiomegaly and mild pulmonary edema. 2. Previously noted right lower lung airspace opacity has resolved. 3. Ill-defined blunting of the left costophrenic angle may represent atelectasis/scarring or trace effusion. ACT 112: Negative or not required by law. Electronically signed by: Armand Tobar M.D. 02/07/2023 10:05 AM Ordered Studies 01/28/23 18:04 CT abd pelvis IV con only Stat CT cervical spine wo con Stat CT chest diagnostic w con Stat CT head/brain wo con Stat Hospital Course (1) Fall: (2) UTI (urinary tract infection) due to urinary indwelling catheter: (3) Generalized weakness: (4) Chronic anticoagulation: (5) (HFpEF) heart failure with preserved ejection fraction: (6) Subtherapeutic international normalized ratio (INR): (7) DM type 2 (diabetes mellitus, type 2): Plan This is a 52-year-old male who has significant past medical history of medical noncompliance, history of chronic opioid abuse, indwelling Fontaine catheter for which he has been unwilling to remove, chronic systolic CHF, HTN, HLD, insulin- dependent T2DM, COPD, morbid obesity, depression with anxiety, history of PE on chronic warfarin therapy who presents to ED secondary to fall that occurred last evening. Mechanical Fall Generalized weakness Left-sided abdominal hematoma Fall precautions PT OT: Recommends return Home Monitor CBC Initially patient was planned to be discharged to SNF Plan to discharge home today as patient is thought to be back to baseline UTI-catheter induced UTI Remote H/O ESBL Urine culture grew Klebsiella pneumoniae Blood cultures negative to date On IV ceftriaxone>> transition to cefdinir--completed the course Constipation Resolved Continue bowel regimen COPD No exacerbation Continue home inhalers Saturating well on room air Continue prednisone Taper course H/O PE on chronic anticoagulation with subtherapeutic INR INR 2.4 today Continue Coumadin Chronic HFpEF Continue Lasix Monitor volume status, daily weight Fluid restriction Chest x-ray showed some pulmonary edema Continue diuretics Monitor volume status DM II Continue Insulin per protocol Monitor BGs Chronic opioid use Medical noncompliance DVT Px: Coumadin CODE STATUS Full Code Disposition Home Total Time Total Time Spent Total Time Spent (In Minutes): 54 minutes Discharge Plan Discharge Items Patient Disposition: Home - Self-Care Reason For Visit: SEPSIS Discharge Diagnosis: Mechanical Fall Abdominal hematoma due to fall Complicated urinary tract infection COPD Chronic diastolic heart failure Tobacco use disorder Supratherapeutic INR Activity: Per Instructions section Exercise/Sports: Gradually increase as tolerated Non-emergency contact: Primary Care Provider Call non-emergency contact if: you have any medication questions, your symptoms worsen, your pain is concerning for you and you have a fever Follow-up/Referrals: Roberto Askew MD [Primary Care Provider] - Diet: Carb Consistent or DM2 and Heart Healthy Fluids: 1800ml (7 cups) Addtl Attending Provider Instructions: Follow-up with your primary care physician in 1 week Follow-up with Coumadin clinic in 1 week for monitoring of PT/INR and adjusting Coumadin dose as needed. -- Complete the prednisone taper course as prescribed. Start taking prednisone 10 mg daily for 4 days, then take 5 mg daily for 4 days and stop. --Quit smoking tobacco as advised. Seek immediate medical attention if your symptoms reoccur or worsen Please take all medications as instructed on discharge list below. Please call if you have any questions or problems. You can reach a [facility] hospitalist on duty at [facility] 24 hours a day by calling [phone] Call your Primary Care doctor if any of the following symptoms or problems start or get worse: * Shortness of breath or difficulty breathing * Wake up at night short of breath * Chest pain * Cough * Swelling of your hands, feet, or legs * More fatigued or tired with your normal activity * Palpitations - sudden fast heart beats WEIGHT * Weigh yourself every morning after using the bathroom. * Use the same scale. * Wear the same amount of clothing. * Write your weight down on a chart. * Call your Primary Care doctor if you gain more than 2-3 pounds in 1-2 days. MEDICATIONS * Use this discharge instruction sheet for medication instructions. * Take your medications at the time your doctor ordered. * Do not skip a dose of your medicines. * If you miss a dose of medicine, take it as soon as possible, but DO NOT DOUBLE A DOSE. * Read your medicine information when you get home. * Know all of the side effects of your medicine. If in doubt, ask your pharmacist * Call your Primary Care doctor's office if you have any side effects. * Be sure all of your doctors know what medicine and herbs you take (including cold, flu, and herbal medicine). Take the following with you to your follow-up doctor appointments: * Weight Chart * Medication List * List of questions Do not drink excessive alcohol, beer or wine. Pending Studies at Discharge: No Stand-Alone Forms: My [employer], Smoking Cessation Medications and DC Order Prescriptions: New prednisone 5 mg tablet 5 mg PO UD Qty: 12 0RF Rx Instructions: Start taking prednisone 10 mg daily for 4 days, then take 5 mg daily for 4 days and stop. Continued promethazine 12.5 mg tablet 12.5 mg PO BID PRN (Reason: nausea and vomiting) Qty: 10 0RF tamsulosin [Flomax] 0.4 mg capsule 0.8 mg PO QAM Qty: 180 3RF polyethylene glycol 3350 [Miralax] 17 gram powder in packet 17 g PO QAM nitroglycerin [Nitrostat] 0.4 mg tablet, sublingual 0.4 mg Sublingual DIRECTED PRN (Reason: CHEST PAIN) Rx Instructions: PLACE ONE TABLET UNDER THE TONGUE EVERY 5 MINUTES FOR UP TO 3 DOSES OVER 15 MINUTES IF NEEDED FOR CHEST PAIN nystatin 100,000 unit/gram Powder 1 applic TOPICAL TID PRN (Reason: Skin Irritation) Rx Instructions: APPLY DIRECTED TO ABDOMINAL FOLDS cyclobenzaprine 10 mg Tablet 10 mg PO BID PRN (Reason: Muscle Spasm) ipratropium-albuterol 0.5 mg-3 mg(2.5 mg base)/3 mL Solution For Nebulization 3 ml INHALATION Q6H PRN (Reason: Shortness Of Breath Or Wheezing) docusate sodium 100 mg Capsule 100 mg PO BID duloxetine 60 mg capsule,delayed release(DR/EC) 60 mg PO DAILY famotidine 20 mg tablet 20 mg PO DAILY fluticasone propionate 50 mcg/actuation spray,suspension 2 spray Intranasal DAILY aspirin [Ecotrin Low Strength] 81 mg tablet,delayed release (DR/EC) 81 mg PO QAM finasteride 5 mg tablet 5 mg PO QAM metoprolol succinate 50 mg Tablet Extended Release 24 Hr 75 mg PO BID spironolactone 25 mg Tablet 25 mg PO QAM atorvastatin 80 mg tablet 80 mg PO QPM Rx Instructions: TAKE THIS MEDICATION EVERY AFTERNOON sennosides [senna] 8.6 mg Tablet 8.6 mg PO DAILY PRN (Reason: Constipation) folic acid 1 mg Tablet 1 mg PO QAM furosemide [Lasix] 40 mg tablet 40 mg PO BID albuterol sulfate 90 mcg/actuation Hfa Aerosol Inhaler 2 puff INHALATION Q4 PRN (Reason: Dyspnea) omeprazole 20 mg Capsule,Delayed Release(Dr/Ec) 20 mg PO DAILYBB gabapentin 800 mg tablet 800 mg PO TID buprenorphine HCl 8 mg tablet, sublingual 8 mg SUBLINGUAL TID Rx Instructions: Per Dr 1st glipizide 10 mg tablet 10 mg PO BID urea [Ureacin-20] 20 % Cream 1 applic TOPICAL BID magnesium oxide 400 mg (241.3 mg magnesium) tablet 400 mg PO DAILY ferrous sulfate 325 mg (65 mg iron) Tablet 325 mg PO QAM Rx Instructions: Take with breakfast hydroxyzine HCl 25 mg Tablet 25 mg PO QID PRN (Reason: Anxiety) ondansetron HCl 4 mg Tablet 4 mg PO Q8H PRN (Reason: NAUSEA/VOMITING) benzonatate 100 mg Capsule 100 mg PO TID PRN (Reason: cough) Qty: 10 0RF diclofenac sodium [Voltaren Arthritis Pain] 1 % Gel 2 g EXT BID Qty: 50 0RF dextromethorphan-guaifenesin 10-100 mg/5 mL Syrup 5 ml PO Q6H PRN (Reason: cough) Qty: 500 0RF potassium chloride 20 mEq tablet extended release 40 meq PO BID Qty: 60 0RF warfarin 5 mg tablet 2.5 mg PO TUTH Rx Instructions: . cholecalciferol (vitamin D3) 125 mcg (5,000 unit) Tablet 5,000 unit PO QAM Qty: 30 0RF codeine-guaifenesin 10-100 mg/5 mL liquid 5 ml PO TID PRN (Reason: cough) Qty: 120 0RF Lactinex 1 million cell tablet,chewable 1 tab PO TID Qty: 30 0RF isosorbide dinitrate 30 mg tablet 30 mg PO DAILY warfarin 5 mg tablet 5 mg PO SUMOWEFRSA guaifenesin [Mucinex] 600 mg Tablet Extended Release 12hr 1,200 mg PO BID lorazepam 0.5 mg tablet 0.5 mg PO Q8 PRN (Reason: Anxiety) Qty: 6 0RF insulin glargine [Lantus Solostar U-100 Insulin] 100 unit/mL (3 mL) Insulin Pen 50 unit SC HS 30 Days Qty: 15 0RF Discharge Orders: Discharge Order (Routine); Ordered 02/11/23 Ordered By: Dipesh Wright Admission Data Admit Date/Time: 01/28/23 23:52 Attending Provider: Dipesh Wright Admit Provider: Waldemar Galarza Primary Care Provider: Roberto Askew Other Providers: [place] ; Porfirio Beasley [facility] ; Waldemar Galarza ; [place]
[2023-02-12] MEDS ORDERED: predniSONE 10 MG TABLET PO SCH (09:00)
== END 2023-02-11 12:50 | disposition home or self-care (01) | DRG 699 ==
LOC: ED 17:17 → 2N 23:52 → SUATTDRO 23:52 → 2N 01-29 00:55 → 2W 02-03 22:00 → 3W 02-05 11:10

== ENCOUNTER 2023-02-15 12:39 | Inpatient (IN) ==
--- NOTE | 2023-02-15 13:34 | Emergency Department Note ---
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 (Non-Af Amer) ml/min BUN/Creatinine Ratio (10-20) Glucose (70-99(Fasting)) mg/dl Calcium (8.6-10.3) mg/dl Total Bilirubin (0.2-1.0) mg/dl AST (13-39) U/L ALT (7-52) U/L Alkaline Phosphatase (34-104) U/L Troponin I High Sens (0-20) pg/ml Total Protein (6.0-8.3) gm/dl Albumin (3.4-5.0) gm/dl Globulin (2.5-4.0) gm/dl Albumin/Globulin Ratio (0.9-2) Lipase (11-82) U/L SARS-CoV-2, RNA, NAAT NEGATIVE (NEGATIVE) Blood Type O Positive Antibody Screen NEGATIVE Imaging Data Attestation: I personally reviewed and interpreted this imaging study as follows: My Impression: Chest x-rayno acute infiltrate, failure, pneumothorax seen Radiologist's Impression: Chest X-Ray 02/15/23 14:59 XR chest 1V portable HISTORY: 52 years-old Male sob acute shortness of breath COMPARISON: 02/07/2023 TECHNIQUE: AP view of the chest FINDINGS: Cardiac silhouette is enlarged. No pneumothorax, or overt pulmonary edema. Increased density of the lung bases, likely secondary to summation density. Left basilar opacities likely secondary to prominent epicardial fat pad with atelectasis. Bones appear grossly intact. IMPRESSION: Cardiomegaly without acute process. ACT 112: Negative or not required by law. The above report was generated using voice recognition software. It may contain grammatical, syntax or spelling errors. Electronically signed by: Shelton Apodaca M.D. 02/15/2023 3:50 PM ECG Data Attestation: I personally reviewed and interpreted this ECG as follows: Indication: + chest pain Rate (beats per minute): 88 Rhythm: + normal sinus ECG Intervals/blocks: + Normal QRS, + Normal QT and + Normal OK ECG [place]: + Normal ECG ST segments: + Normal ST segments ECG Findings: no PACs or no PVCs Comparison ECG Date: from (01/28/2023) Change: no significant change MDM Narrative This patient comes in as described above. He was placed in room C12. He is here for treatment and evaluation of bright red blood per rectum he is on Coumadin. I did order coagulation studies and hemoglobin he was typed and screened. He has shortness of breath and chest pain which he typically does as well as had an extensive work-up we did an EKG and he has no ischemic changes. His hemoglobin was 12.1 which is actually better than his last hemoglobin by 1 g. He has no significant electrolyte or metabolic abnormality. His INR is subtherapeutic at 1.9 which is also helpful in the setting of bleeding. Troponin is negative and EKG is nonischemic appearing. Given his rectal bleeding and the fact that he is on Coumadin and has a very complex medical history otherwise I do think he needs to be admitted/observed. I did discuss the case at length and consultation with Dr. Wright who does know the patient from previous admissions and is going to see him for these measures Continuous cardiac monitoring: Orders placed in EMR for continuous cardiac monitoring. 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
[2023-02-15 14:19] LABS: Basophils # (auto) 0.04 K/uL (0-0.2); Basophils % (auto) 0.3 %; Eosinophils # (auto) 0.07 K/uL (0-0.50); Eosinophils % (auto) 0.5 %; Hematocrit (blood only) 38.3 % (42.0-52.0); Hemoglobin 12.1 g/dl (14.0-18.0); Immature Granulocytes # (auto) 0.08 K/uL (0.01-0.20); Immature Granulocytes % (auto) 0.6 %; Lymphocytes # (auto) 0.92 K/uL (1.2-3.4); Lymphocytes % (auto) 6.7 %; Mean Corpuscular Hemoglobin 27.4 pg (25.0-34.0); Mean Corpuscular Hgb Conc 31.6 g/dL (32.0-36.0); Mean Corpuscular Volume 86.7 fL (80.0-100.0); Monocytes # (auto) 0.52 K/uL (0.11-0.59); Monocytes % (auto) 3.8 %; Neutrophils # (auto) 12.19 K/uL (1.40-6.50); Neutrophils % (auto) 88.1 %; Platelet Count 236 K/uL (130-400); RDW Coefficient of Variation 17.9 % (11.5-14.5); RDW Standard Deviation 56.8 fL (36.4-46.3); Red Blood Count 4.42 M/uL (4.70-6.10); White Blood Count 13.82 K/ul (4.8-10.8)
[2023-02-15 14:38] LABS: Albumin Globulin Ratio 1.2 (0.9-2); Albumin Level 3.8 gm/dl (3.4-5.0); BUN Creatinine Ratio 10.6 (10-20); Calcium 9.9 mg/dl (8.6-10.3); Creatinine Clr Calc Pharmacy 173.9 ml/min; Est GFR (African American) 107.6 ml/min; Est GFR (Non-African American) 92.8 ml/min; Globulin 3.2 gm/dl (2.5-4.0); Potassium 4.4 mmol/L (3.5-5.1)
[2023-02-15 14:45] LABS: Troponin I High Sensitivity 6.3 pg/ml (0-20)
[2023-02-15 14:47] LABS: INR 1.9 (0.9-1.1); Partial Thromboplastin Ratio 1.4; Partial Thromboplastin Time 38.2 Seconds (21.0-31.0)
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
--- NOTE | 2023-02-15 15:51 | XRay Report ---
XR chest 1V portable HISTORY: 52 years-old Male sob acute shortness of breath COMPARISON: 02/07/2023 TECHNIQUE: AP view of the chest FINDINGS: Cardiac silhouette is enlarged. No pneumothorax, or overt pulmonary edema. Increased density of the l cathy bases, likely secondary to summation density. Left basilar opacities likely secondary to prominen t epicardial fat pad with atelectasis. Bones appear grossly intact. IMPRESSION: Cardiomegaly without acute process. ACT 112: Negative or not required by law. The above report was generated using voice recognition software. It may contain grammatical, syntax o r spelling errors. Electronically signed by: Shelton Apodaca M.D. 02/15/2023 3:50 PM
[2023-02-15] MEDS ORDERED: DEXTROSE 50% 50 ML SYRINGE IV PRN (18:15)
[2023-02-15] MEDS ORDERED: GLUCOSE 10 TAB/TUBE PO PRN (18:15)
[2023-02-15] MEDS ORDERED: ACETAMINOPHEN 325 MG TAB PO PRN (18:15)
[2023-02-15] MEDS ORDERED: hydrOXYzine HCl 25 MG TAB PO PRN (18:15)
[2023-02-15] MEDS ORDERED: ALBUT/IPRATROP 3MG/0.5MG NEB 3 ML VIAL INH PRN (18:15)
[2023-02-15] MEDS ORDERED: CARBOHYDRATES FOR HYPOGLYCEMIA PO PRN (18:15)
[2023-02-15] MEDS ORDERED: NYSTATIN POWDER 15GM BTL EXT PRN (18:15)
[2023-02-15] MEDS ORDERED: SENNA 8.6 MG TAB PO PRN (18:15)
[2023-02-15] MEDS ORDERED: PHARMACY GLYCEMIC MGMT CONSULT PRN (18:15)
[2023-02-15] MEDS ORDERED: GLUCAGON FOR INJ 1 MG VIAL SQ PRN (18:15)
[2023-02-15] MEDS ORDERED: GLUCOSE 40% GEL 15 GM TUBE PO PRN (18:15)
[2023-02-15] MEDS ORDERED: PHYTONADIONE 5 MG TAB PO ONE (18:30)
[2023-02-15] MEDS ORDERED: INSULIN ASPART PER UNIT CHARGE SC SCH (19:15)
[2023-02-15] MEDS ORDERED: LANTUS PER UNIT CHARGE SC SCH (21:00)
[2023-02-15] MEDS ORDERED: MELATONIN 3 MG TAB PO PRN (21:02)
[2023-02-15] MEDS ORDERED: LORazepam 0.5 MG TAB PO PRN (21:03)
[2023-02-15 21:31] LABS: Hematocrit (blood only) 36.1 % (42.0-52.0); Hemoglobin 11.4 g/dl (14.0-18.0)
[2023-02-15] MEDS: PANTOprazole 40 MG in SYRINGE 0 ML IV SCH (21:51)
[2023-02-15] MEDS: DOCUSATE SODIUM 100 MG CAP PO SCH (21:52)
[2023-02-15] MEDS: GABAPENTIN 800 MG TAB PO SCH (21:52)
[2023-02-15] MEDS: DICLOFENAC SOD 1% GEL 100 GM TUBE EXT SCH (21:52)
[2023-02-15] MEDS: FUROSEMIDE 40 MG TAB PO SCH (21:52)
[2023-02-15] MEDS: INSULIN ASPART PER UNIT CHARGE SC SCH (21:53)
[2023-02-15] MEDS: METOPROLOL SUCC 25MG EXT REL TAB PO SCH (21:54)
[2023-02-15] MEDS: POTASSIUM CHLORIDE CRTAB 20 MEQ TABCR PO SCH (21:54)
[2023-02-15] MEDS: buprenorphine HCL 8 MG SUBL SL SCH (22:08)
[2023-02-15] MEDS: CYCLOBENZAPRINE HCL 10 MG TAB PO PRN (22:08)
[2023-02-15 22:53] LABS: Appearance Urine Cloudy (Clear); Bacteria Urine Automated 4+ (Negative); Bilirubin Urine Negative (Negative); Blood Urine 1+ (Negative); Color Urine Dark Yellow; Glucose Urine UA Negative (Negative); Ketones Urine Negative (Negative); Leukocyte Esterase Urine 2+ (Negative); Nitrite Urine Positive (Negative); Specific Gravity Urine 1.016 (1.000-1.030); Urobilinogen Urine Negative (Negative); WBC Urine Automated >30 /hpf (0-5); pH Urine >= 9.0 (4.5-7.5)
[2023-02-15 22:58] LABS: Protein Urine Trace (Negative)
[2023-02-15 23:11] LABS: RBC Urine Automated 0-4 /hpf (0-4)
[2023-02-16] MEDS: NICOTINE 21 MG/24 HR TDSY TD SCH ×2 (01:33→08:20)
[2023-02-16] MEDS: BENZONATATE 100 MG CAPSULE PO PRN (01:33)
[2023-02-16] MEDS: INSULIN ASPART PER UNIT CHARGE SC SCH ×4 (07:58→20:45)
[2023-02-16 08:04] LABS: Hematocrit (blood only) 38.6 % (42.0-52.0); Hemoglobin 12.1 g/dl (14.0-18.0); Mean Corpuscular Hemoglobin 27.3 pg (25.0-34.0); Mean Corpuscular Hgb Conc 31.3 g/dL (32.0-36.0); Mean Corpuscular Volume 87.1 fL (80.0-100.0); Platelet Count 213 K/uL (130-400); RDW Coefficient of Variation 17.8 % (11.5-14.5); RDW Standard Deviation 56.8 fL (36.4-46.3); Red Blood Count 4.43 M/uL (4.70-6.10); White Blood Count 12.82 K/ul (4.8-10.8)
[2023-02-16] MEDS: CHOLECALCIFEROL 5,000 UNITS 125 MCG TAB PO SCH (08:15)
[2023-02-16] MEDS: DICLOFENAC SOD 1% GEL 100 GM TUBE EXT SCH ×2 (08:15→20:46)
[2023-02-16] MEDS: FINASTERIDE 5 MG TAB PO SCH (08:16)
[2023-02-16] MEDS: DULoxetine HCL 60 MG CAP PO SCH (08:16)
[2023-02-16] MEDS: FOLIC ACID 1 MG TAB PO SCH (08:17)
[2023-02-16] MEDS: FLUTICASONE PROPIONATE NA SPR 16 GM BTL SCH (08:17)
[2023-02-16] MEDS: GABAPENTIN 800 MG TAB PO SCH ×3 (08:18→20:43)
[2023-02-16] MEDS: ISOSORBIDE DINITRATE 20 MG TAB PO SCH (08:18)
[2023-02-16] MEDS: FUROSEMIDE 40 MG TAB PO SCH ×2 (08:18→20:43)
[2023-02-16] MEDS: MAGNESIUM OXIDE 400 MG TAB PO SCH (08:19)
[2023-02-16] MEDS: METOPROLOL SUCC 25MG EXT REL TAB PO SCH ×2 (08:19→20:44)
[2023-02-16] MEDS: PANTOprazole 40 MG in SYRINGE 0 ML IV SCH ×2 (08:20→20:42)
[2023-02-16 08:21] LABS: BUN Creatinine Ratio 10.3 (10-20); Calcium 9.6 mg/dl (8.6-10.3); Creatinine Clr Calc Pharmacy 183.9 ml/min; Est GFR (Non-African American) 99.2 ml/min; Potassium 3.8 mmol/L (3.5-5.1)
[2023-02-16] MEDS: POTASSIUM CHLORIDE CRTAB 20 MEQ TABCR PO SCH ×2 (08:21→20:43)
[2023-02-16] MEDS: POLYETHYLENE (MIRALAX) 17 GM PACK PO SCH (08:21)
[2023-02-16] MEDS: SPIRONOLACTONE 25 MG TAB PO SCH (08:22)
[2023-02-16] MEDS: TAMSULOSIN HCL 0.4 MG CAP PO SCH (08:22)
[2023-02-16] MEDS: DOCUSATE SODIUM 100 MG CAP PO SCH ×2 (08:23→20:44)
[2023-02-16] MEDS: buprenorphine HCL 8 MG SUBL SL SCH ×3 (08:30→20:57)
--- NOTE | 2023-02-16 08:35 | Electrocardiogram Report ---
Test Reason : Blood Pressure : / mmHG Vent. Rate : 088 BPM Atrial Rate : 088 BPM P-R Int : 156 ms QRS Dur : 098 ms QT Int : 334 ms P-R-T Axes : 037 041 063 degrees QTc Int : 404 ms Normal sinus rhythm Minor Nonspecific ST abnormality Lateral leads Abnormal ECG When compared with ECG of 28-JAN-2023 18:24, No significant change was found Confirmed by Da Browning ([id number]) on 02/16/2023 8:35:18 AM Referred By: REFERRED SELF Confirmed By:Da Browning
--- NOTE | 2023-02-16 09:00 | Pharmacy Report ---
Pharmacy Glycemic Short Note 2 - Date of Service February 16, 2023 - Glycemic Short BSG Results (Last 24 hours): 02/15/23 02/15/23 02/15/23 13:50 18:06 20:17 Glucose 143 H POC Glucose 142 H 194 H 02/16/23 02/16/23 02/16/23 07:02 07:34 07:34 Glucose 60 L POC Glucose 49 L* 59 L* 02/16/23 08:02 Glucose POC Glucose 123 H OUTPATIENT ANTIDIABETIC REGIMEN: * Lantus 50 units SC HS * Glipizide 10 mg PO BIDM HbA1c: 8.2% (01/14/23) ASSESSMENT: * AISLINN is a 52 year old male well known to pharmacy glycemic service * Majority of inpatient glycemic data has been while patient was on IV st eroids, no steroids at this time * Presented to ED with rectal bleeding - on chronic warfarin * Originally NPO, now ordered full liquid diet * Unfortunately, patient hypoglycemic this morning at 59 mg/dL after receiving 50 units of basal insulin last evening PLAN FOR INPATIENT GLYCEMIC CONTROL: * Hold outpatient oral diabetes medications * Basal insulin - decrease * Lantus 15-25 units SC HS * Bolus insulin * NovoLog per scale ACHS or Q6hrs while NPO * Goal Range: Low 110 mg/dL - High 140 mg/dL * Correction Factor: 20 mg/dL/unit * Nutritional / Prandial insulin per carb ratio of 1 unit per 7 grams CHO consumed
[2023-02-16 09:20] LABS: INR 1.6 (0.9-1.1); Prothrombin Time 16.9 Seconds (9.0-12.0)
[2023-02-16] MEDS: CYCLOBENZAPRINE HCL 10 MG TAB PO PRN ×2 (09:22→20:41)
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
[2023-02-16] MEDS: cefTRIAXone SODIUM 2,000 MG in DEXTROSE 5% AD-VAN 50 ML IV SCH (10:21)
[2023-02-16] MEDS: LORazepam 0.5 MG TAB PO PRN ×2 (10:21→20:41)
[2023-02-16] MEDS: ATORVASTATIN 40 MG TAB PO SCH (13:12)
--- NOTE | 2023-02-16 16:29 | Hospitalist Progress Note ---
Date of Service February 16, 2023 Assessment & Plan (1) Bright red rectal bleeding: Plan: Rectal Bleed: INR:1.9>1.6 Stool guaiac Positive in ED Received Vit K Monitor H&H Transfuse PRBCs as needed Hold Aspirin, Coumadin Prednisone discontinued Avoids NASIDs Continue IV Protonix Appreciate GI Input Hb Stable Will advance to regular diet tomorrow if no recurrence of bleeding Will eventually need outpatient colonoscopy Plan to transition to p.o. Protonix tomorrow if no recurrence of bleeding Suspected UTI Urine culture growing gram-negative bacilli On IV Rocephin Requested Lloyd catheter change Will consider ID evaluation if needed COPD Chronic respiratory failure with hypoxia CXR:Cardiomegaly without acute process. No signs of exacerbation Continue home inhalers Titrate oxygen to keep saturations 88 to 92% Nebs as needed H/O PE on chronic anticoagulation with Warfarin INR 1.6 Hold Coumadin due to rectal bleed Chronic HFpEF Continue Lasix Monitor volume status, daily weight Monitor volume status DM II Continue Insulin per protocol Monitor BGs Chronic opioid use Medical noncompliance DVT Px: SCDs for now CODE STATUS Full Code Admission and Anticipated Discharge Date Admission Date: February 15, 2023 Subjective Patient is seen and examined at bedside No recurrence of rectal bleed overnight or this morning Reports chronic dyspnea on exertion Denies any chest pain, dizziness, nausea, abdominal pain Requests PT evaluation due to poor mobility at home Review of Systems Review of Systems: All systems reviewed & are unremarkable except as noted in Subjective Physical Exam Physical Exam: Physical Exam: Vitals signs as noted above General Appearance:Morbidly Obese, no apparent distress Head: normocephalic, Atraumatic Eyes: normal inspection, EOMI Neck: supple, Trachea midline Respiratory/Chest: Decreased coarse breath sounds, No accessory muscle use Cardiovascular: S1, S2, No murmur Abdomen/GI:Soft, Non tender, normal Bowel sounds Extremities/Musculoskeletal:normal inspection, + B/L Pedal edema, chronic venous stasis changes Neurologic/Psych:AAOX3, grossly no focal neurological deficits Skin: normal color, warm Results & Data Results & Data Vital Signs (Past 12 Hours) Vital Signs Temp Pulse Pulse Resp BP Pulse Ox O2 Del Method 02/16/23 14:27 86 02/16/23 14:35 36.4 C L 85 16 113/65 97 Room Air 02/16/23 11:36 36.4 C L 89 16 141/82 H 98 Nasal Cannula 02/16/23 07:59 Nasal Cannula 02/16/23 07:39 36.4 C L 97 H 16 137/91 96 Nasal Cannula 02/16/23 05:59 61 O2 Flow Rate 02/16/23 14:27 02/16/23 14:35 02/16/23 11:36 4 02/16/23 07:59 4 02/16/23 07:39 4 02/16/23 05:59 Laboratory Results Short CBC 02/15/23 02/16/23 Range/Units 20:38 07:02 WBC 12.82 H (4.8-10.8) K/ul Hgb 11.4 L 12.1 L (14.0-18.0) g/dl Hct 36.1 L 38.6 L (42.0-52.0) % Plt Count 213 (130-400) K/uL BMP 02/16/23 07:02 Sodium 142 Potassium 3.8 Chloride 104 Carbon Dioxide 35 H BUN 9 Creatinine 0.87 Glucose 60 L Calcium 9.6 Urine 02/15/23 Range/Units 22:30 Urine Color Dark Yellow Urine Appearance Cloudy A (Clear) Urine pH >= 9.0 H (4.5-7.5) Ur Specific [place] 1.016 (1.000-1.030) Urine Protein Trace H (Negative) Urine Glucose (UA) Negative (Negative)
[2023-02-16] MEDS: LANTUS PER UNIT CHARGE SC SCH (20:46)
[2023-02-16] MEDS: COUGH DROP (SUGAR FREE) LOZ 24 LOZ/1 BOX BUCCAL PRN (22:27)
[2023-02-17] MEDS: ACETAMINOPHEN 1,000 MG/100 ML VIAL IV PRN ×3 (00:03→17:26)
[2023-02-17] MEDS: INSULIN ASPART PER UNIT CHARGE SC SCH ×4 (08:13→20:44)
[2023-02-17] MEDS: NICOTINE 21 MG/24 HR TDSY TD SCH (08:14)
[2023-02-17] MEDS: DICLOFENAC SOD 1% GEL 100 GM TUBE EXT SCH ×2 (08:14→20:19)
[2023-02-17] MEDS: CHOLECALCIFEROL 5,000 UNITS 125 MCG TAB PO SCH (08:14)
[2023-02-17] MEDS: FLUTICASONE PROPIONATE NA SPR 16 GM BTL SCH (08:14)
[2023-02-17] MEDS: POLYETHYLENE (MIRALAX) 17 GM PACK PO SCH (08:15)
[2023-02-17] MEDS: ISOSORBIDE DINITRATE 20 MG TAB PO SCH (08:16)
[2023-02-17] MEDS: SPIRONOLACTONE 25 MG TAB PO SCH (08:16)
[2023-02-17] MEDS: FOLIC ACID 1 MG TAB PO SCH (08:16)
[2023-02-17] MEDS: DULoxetine HCL 60 MG CAP PO SCH (08:16)
[2023-02-17] MEDS: POTASSIUM CHLORIDE CRTAB 20 MEQ TABCR PO SCH ×2 (08:17→20:22)
[2023-02-17] MEDS: DOCUSATE SODIUM 100 MG CAP PO SCH ×2 (08:17→20:22)
[2023-02-17] MEDS: METOPROLOL SUCC 25MG EXT REL TAB PO SCH ×2 (08:17→20:21)
[2023-02-17] MEDS: FINASTERIDE 5 MG TAB PO SCH (08:17)
[2023-02-17] MEDS: GABAPENTIN 800 MG TAB PO SCH ×3 (08:18→20:21)
[2023-02-17] MEDS: TAMSULOSIN HCL 0.4 MG CAP PO SCH (08:18)
[2023-02-17] MEDS: FUROSEMIDE 40 MG TAB PO SCH ×2 (08:18→20:22)
[2023-02-17] MEDS: PANTOprazole 40 MG in SYRINGE 0 ML IV SCH (08:18)
[2023-02-17] MEDS: MAGNESIUM OXIDE 400 MG TAB PO SCH (08:18)
[2023-02-17] MEDS: cefTRIAXone SODIUM 2,000 MG in DEXTROSE 5% AD-VAN 50 ML IV SCH (08:26)
[2023-02-17] MEDS: CYCLOBENZAPRINE HCL 10 MG TAB PO PRN ×2 (08:30→20:18)
[2023-02-17] MEDS: LORazepam 0.5 MG TAB PO PRN ×2 (08:30→20:19)
[2023-02-17] MEDS: buprenorphine HCL 8 MG SUBL SL SCH ×3 (08:42→20:19)
[2023-02-17 09:48] LABS: Hematocrit (blood only) 36.4 % (42.0-52.0); Hemoglobin 11.5 g/dl (14.0-18.0); Mean Corpuscular Hemoglobin 27.5 pg (25.0-34.0); Mean Corpuscular Hgb Conc 31.6 g/dL (32.0-36.0); Mean Corpuscular Volume 87.1 fL (80.0-100.0); Platelet Count 202 K/uL (130-400); RDW Coefficient of Variation 17.7 % (11.5-14.5); RDW Standard Deviation 56.4 fL (36.4-46.3); Red Blood Count 4.18 M/uL (4.70-6.10); White Blood Count 10.32 K/ul (4.8-10.8)
[2023-02-17 10:01] LABS: INR 1.1 (0.9-1.1); Prothrombin Time 12.4 Seconds (9.0-12.0)
[2023-02-17 10:13] LABS: Calcium 9.5 mg/dl (8.6-10.3); Magnesium 1.7 mg/dl (1.7-2.4); Potassium 3.7 mmol/L (3.5-5.1)
[2023-02-17] MEDS ORDERED: guaiFENesin SUGAR FREE 100 MG/5 ML UDC PO PRN (10:13)
[2023-02-17 10:19] LABS: BUN Creatinine Ratio 7.5 (10-20); Creatinine Clr Calc Pharmacy 149.5 ml/min; Est GFR (Non-African American) 79.4 ml/min
[2023-02-17] MEDS: NYSTATIN POWDER 15GM BTL EXT SCH ×2 (12:23→20:20)
[2023-02-17] MEDS: ATORVASTATIN 40 MG TAB PO SCH (12:25)
[2023-02-17] MEDS ORDERED: FUROSEMIDE 40 MG/4 ML VIAL IV ONE (14:00)
[2023-02-17] MEDS ORDERED: WARFARIN SOD 2 MG TAB PO SCH (16:00)
--- NOTE | 2023-02-17 17:33 | Hospitalist Progress Note ---
Date of Service February 17, 2023 Assessment & Plan (1) Bright red rectal bleeding: Plan: Rectal Bleed: INR:1.9>1.6>1.1 Stool guaiac Positive in ED Received Vit K Monitor H&H Transfuse PRBCs as needed Held Aspirin, Coumadin Initially Prednisone discontinued Avoids NASIDs Continue Protonix Appreciate GI Input Will eventually need outpatient colonoscopy Discussed with GI today: Okay to resume Coumadin, Aspirin Hb Stable Physical deconditioning Secondary to comorbidities PT OT recommends rehab Continue PT OT Recurrent UTI Urine culture growing Klebsiella Continue IV Rocephin Lloyd catheter changed Consulted ID- Await Input COPD Chronic respiratory failure with hypoxia CXR:Cardiomegaly without acute process. No signs of exacerbation Continue home inhalers Titrate oxygen to keep saturations 88 to 92% Nebs as needed H/O PE on chronic anticoagulation with Warfarin INR 1.6>1.1 Resume Coumadin Chronic HFpEF Continue Lasix Monitor volume status, daily weight Monitor volume status DM II Continue Insulin per protocol Monitor BGs Chronic opioid use Medical noncompliance DVT Px: Coumadin SCDs CODE STATUS Full Code Admission and Anticipated Discharge Date Admission Date: February 15, 2023 Subjective Patient is seen and examined at bedside States having generalized body ache Also reports headache this morning Was having PT during my encounter No recurrence of rectal bleed Reports chronic dyspnea on exertion No other complaints Review of Systems Review of Systems: All systems reviewed & are unremarkable except as noted in Subjective Physical Exam Physical Exam: Physical Exam: Vitals signs as noted above General Appearance:Morbidly Obese, no apparent distress Head: normocephalic, Atraumatic Eyes: normal inspection, EOMI Neck: supple, Trachea midline Respiratory/Chest: Decreased coarse breath sounds, No accessory muscle use Cardiovascular: S1, S2, No murmur Abdomen/GI:Soft, Non tender, normal Bowel sounds Extremities/Musculoskeletal:normal inspection, + B/L Pedal edema, chronic venous stasis changes Neurologic/Psych:AAOX3, grossly no focal neurological deficits Skin: normal color, warm Results & Data Results & Data Vital Signs (Past 12 Hours) Vital Signs Temp Pulse Resp BP BP Pulse Ox Pulse Ox 02/17/23 16:24 37.0 C 82 20 111/68 97 02/17/23 14:13 93 02/17/23 11:39 36.9 C 88 20 102/62 93 02/17/23 08:00 02/17/23 10:14 02/17/23 07:21 36.5 C 92 H 19 156/80 H 96 O2 Del Method O2 Flow Rate 02/17/23 16:24 Room Air 02/17/23 14:13 0 02/17/23 11:39 Room Air 02/17/23 08:00 Room Air, Nasal Cannula 02/17/23 10:14 Room Air 02/17/23 07:21 Room Air Laboratory Results Short CBC 02/17/23 Range/Units 08:41 WBC 10.32 (4.8-10.8) K/ul Hgb 11.5 L (14.0-18.0) g/dl Hct 36.4 L (42.0-52.0) % Plt Count 202 (130-400) K/uL BMP 02/17/23 08:41 Sodium 139 Potassium 3.7 Chloride 99 Carbon Dioxide 35 H BUN 8 Creatinine 1.07 Glucose 168 H Calcium 9.5
[2023-02-17] MEDS: PANTOprazole 40 MG TAB PO SCH (20:20)
[2023-02-17] MEDS: LANTUS PER UNIT CHARGE SC SCH (20:48)
[2023-02-18] MEDS: ACETAMINOPHEN 1,000 MG/100 ML VIAL IV PRN ×3 (02:12→20:02)
[2023-02-18 07:25] LABS: Hematocrit (blood only) 34.4 % (42.0-52.0); Hemoglobin 10.9 g/dl (14.0-18.0)
[2023-02-18 07:45] LABS: BUN Creatinine Ratio 11.8 (10-20); Calcium 9.1 mg/dl (8.6-10.3); Creatinine Clr Calc Pharmacy 145.4 ml/min; Est GFR (Non-African American) 76.8 ml/min; Potassium 3.9 mmol/L (3.5-5.1)
[2023-02-18 07:46] LABS: INR 1.1 (0.9-1.1); Prothrombin Time 11.5 Seconds (9.0-12.0)
[2023-02-18] MEDS: buprenorphine HCL 8 MG SUBL SL SCH ×3 (08:17→20:02)
[2023-02-18] MEDS: LORazepam 0.5 MG TAB PO PRN ×2 (08:49→20:02)
[2023-02-18] MEDS: CYCLOBENZAPRINE HCL 10 MG TAB PO PRN ×2 (08:49→20:02)
[2023-02-18] MEDS: INSULIN ASPART PER UNIT CHARGE SC SCH ×4 (08:49→21:04)
[2023-02-18] MEDS: FOLIC ACID 1 MG TAB PO SCH (08:52)
[2023-02-18] MEDS: FUROSEMIDE 40 MG TAB PO SCH ×2 (08:52→20:10)
[2023-02-18] MEDS: TAMSULOSIN HCL 0.4 MG CAP PO SCH (08:52)
[2023-02-18] MEDS: DOCUSATE SODIUM 100 MG CAP PO SCH ×2 (08:53→20:07)
[2023-02-18] MEDS: ISOSORBIDE DINITRATE 20 MG TAB PO SCH (08:54)
[2023-02-18] MEDS: MAGNESIUM OXIDE 400 MG TAB PO SCH (08:54)
[2023-02-18] MEDS: POTASSIUM CHLORIDE CRTAB 20 MEQ TABCR PO SCH ×2 (08:55→20:08)
[2023-02-18] MEDS: CHOLECALCIFEROL 5,000 UNITS 125 MCG TAB PO SCH (08:55)
[2023-02-18] MEDS: SPIRONOLACTONE 25 MG TAB PO SCH (08:55)
[2023-02-18] MEDS: GABAPENTIN 800 MG TAB PO SCH ×3 (08:56→20:09)
[2023-02-18] MEDS: DULoxetine HCL 60 MG CAP PO SCH (08:56)
[2023-02-18] MEDS: FINASTERIDE 5 MG TAB PO SCH (08:57)
[2023-02-18] MEDS: ASPIRIN 81 MG ECTAB PO SCH (08:57)
[2023-02-18] MEDS: METOPROLOL SUCC 25MG EXT REL TAB PO SCH ×2 (08:58→20:09)
[2023-02-18] MEDS: PANTOprazole 40 MG TAB PO SCH ×2 (08:58→20:10)
[2023-02-18] MEDS: POLYETHYLENE (MIRALAX) 17 GM PACK PO SCH (08:58)
[2023-02-18] MEDS: NYSTATIN POWDER 15GM BTL EXT SCH ×2 (08:58→20:12)
[2023-02-18] MEDS: FLUTICASONE PROPIONATE NA SPR 16 GM BTL SCH (09:00)
[2023-02-18] MEDS: NICOTINE 21 MG/24 HR TDSY TD SCH (09:00)
[2023-02-18] MEDS: DICLOFENAC SOD 1% GEL 100 GM TUBE EXT SCH ×2 (09:01→20:08)
[2023-02-18] MEDS: cefTRIAXone SODIUM 2,000 MG in DEXTROSE 5% AD-VAN 50 ML IV SCH (09:55)
[2023-02-18] MEDS: guaiFENesin 600 MG TABCR PO SCH ×2 (10:50→20:08)
[2023-02-18] MEDS: ATORVASTATIN 40 MG TAB PO SCH (12:47)
[2023-02-18] MEDS ORDERED: FUROSEMIDE 40 MG/4 ML VIAL IV ONE (13:00)
--- NOTE | 2023-02-18 15:23 | Hospitalist Progress Note ---
Date of Service February 18, 2023 Assessment & Plan (1) Bright red rectal bleeding: Plan: Rectal Bleed: In setting of Aspirin, Coumadin use INR:1.9>1.6>1.1 Stool guaiac Positive in ED Received Vit K Monitor H&H Transfuse PRBCs as needed Held Aspirin, Coumadin Initially Prednisone discontinued Avoids NASIDs Continue Protonix Appreciate GI Input Will eventually need outpatient colonoscopy Discussed with GI on 02/17/23: Okay to resume Coumadin, Aspirin Monitor CBC Hb 10.9 today Physical deconditioning Secondary to comorbidities PT OT recommends rehab Continue PT OT: Recommends Rehab H/O Recurrent UTI: Likely colonization Urine culture grew Klebsiella Continue IV Rocephin: Discontinued after receiving 3 doses Lloyd catheter changed Appreciate ID input: Recommends to discontinue Lloyd catheter Patient patient prefers to continue Lloyd catheter despite explaining the risks and complications. He prefers to follow-up with urology as outpatient and consider to get Lloyd catheter removed as outpatient Offered urology evaluation while inpatient, currently patient seemed to be not interested as had recurrent retention issues in the past COPD Chronic respiratory failure with hypoxia CXR:Cardiomegaly without acute process. No signs of exacerbation Continue home inhalers Titrate oxygen to keep saturations 88 to 92% Nebs as needed H/O PE on chronic anticoagulation with Warfarin INR 1.6>1.1 Continue Coumadin Chronic HFpEF Continue Lasix Monitor volume status, daily weight Monitor volume status DM II Continue Insulin per protocol Monitor BGs Chronic opioid use Medical noncompliance DVT Px: Coumadin SCDs CODE STATUS Full Code Admission and Anticipated Discharge Date Admission Date: February 15, 2023 Subjective Patient is seen and examined at bedside States feeling about the same as yesterday Discussed with ID today Patient refuses to be discontinued on Lloyd Feels chest is congested Denies any recurrence of rectal bleed No other new complaints Review of Systems Review of Systems: All systems reviewed & are unremarkable except as noted in Subjective Physical Exam Physical Exam: Physical Exam: Vitals signs as noted above General Appearance:Morbidly Obese, no apparent distress Head: normocephalic, Atraumatic Eyes: normal inspection, EOMI Neck: supple, Trachea midline Respiratory/Chest: Decreased coarse breath sounds, No accessory muscle use Cardiovascular: S1, S2, No murmur Abdomen/GI:Soft, Non tender, normal Bowel sounds Extremities/Musculoskeletal:normal inspection, + B/L Pedal edema, chronic venous stasis changes Neurologic/Psych:AAOX3, grossly no focal neurological deficits Skin: normal color, warm Results & Data Results & Data Vital Signs (Past 12 Hours) Vital Signs Temp Pulse Pulse Resp BP Pulse Ox O2 Del Method 02/18/23 08:00 Room Air, Nasal Cannula 02/18/23 11:27 36.8 C 83 18 112/68 92 Room Air 02/18/23 07:41 36.5 C 73 18 120/72 100 Nasal Cannula 02/18/23 07:38 65 02/18/23 04:00 36.5 C 71 20 124/74 98 Nasal Cannula O2 Flow Rate 02/18/23 08:00 02/18/23 11:27 02/18/23 07:41 4 02/18/23 07:38 02/18/23 04:00 4 Laboratory Results Short CBC 02/18/23 Range/Units 06:13 Hgb 10.9 L (14.0-18.0) g/dl Hct 34.4 L (42.0-52.0) % BMP 02/18/23 06:13 Sodium 141 Potassium 3.9 Chloride 100 Carbon Dioxide 36 H BUN 13 Creatinine 1.10 Glucose 148 H Calcium 9.1
[2023-02-18] MEDS: WARFARIN SOD 5 MG TAB PO SCH (17:17)
[2023-02-18] MEDS: LANTUS PER UNIT CHARGE SC SCH (21:12)
[2023-02-19] MEDS: LORazepam 0.5 MG TAB PO PRN ×2 (08:17→22:18)
[2023-02-19] MEDS: CYCLOBENZAPRINE HCL 10 MG TAB PO PRN ×2 (08:17→22:17)
[2023-02-19] MEDS: ACETAMINOPHEN 1,000 MG/100 ML VIAL IV PRN ×2 (08:18→17:15)
[2023-02-19] MEDS: DICLOFENAC SOD 1% GEL 100 GM TUBE EXT SCH ×2 (08:19→22:18)
[2023-02-19] MEDS: ASPIRIN 81 MG ECTAB PO SCH (08:19)
[2023-02-19] MEDS: buprenorphine HCL 8 MG SUBL SL SCH ×3 (08:19→21:57)
[2023-02-19] MEDS: CHOLECALCIFEROL 5,000 UNITS 125 MCG TAB PO SCH (08:19)
[2023-02-19] MEDS: GABAPENTIN 800 MG TAB PO SCH ×3 (08:20→22:03)
[2023-02-19] MEDS: FINASTERIDE 5 MG TAB PO SCH (08:20)
[2023-02-19] MEDS: ISOSORBIDE DINITRATE 20 MG TAB PO SCH (08:20)
[2023-02-19] MEDS: FOLIC ACID 1 MG TAB PO SCH (08:20)
[2023-02-19] MEDS: guaiFENesin 600 MG TABCR PO SCH ×2 (08:20→22:02)
[2023-02-19] MEDS: DULoxetine HCL 60 MG CAP PO SCH (08:20)
[2023-02-19] MEDS: DOCUSATE SODIUM 100 MG CAP PO SCH ×2 (08:20→22:01)
[2023-02-19] MEDS: FLUTICASONE PROPIONATE NA SPR 16 GM BTL SCH (08:20)
[2023-02-19] MEDS: FUROSEMIDE 40 MG TAB PO SCH ×2 (08:20→22:02)
[2023-02-19] MEDS: PANTOprazole 40 MG TAB PO SCH ×2 (08:22→22:04)
[2023-02-19] MEDS: MAGNESIUM OXIDE 400 MG TAB PO SCH (08:22)
[2023-02-19] MEDS: SPIRONOLACTONE 25 MG TAB PO SCH (08:22)
[2023-02-19] MEDS: NYSTATIN POWDER 15GM BTL EXT SCH ×2 (08:22→22:19)
[2023-02-19] MEDS: POLYETHYLENE (MIRALAX) 17 GM PACK PO SCH (08:22)
[2023-02-19] MEDS: POTASSIUM CHLORIDE CRTAB 20 MEQ TABCR PO SCH ×2 (08:22→21:57)
[2023-02-19] MEDS: NICOTINE 21 MG/24 HR TDSY TD SCH (08:22)
[2023-02-19] MEDS: TAMSULOSIN HCL 0.4 MG CAP PO SCH (08:23)
[2023-02-19] MEDS: INSULIN ASPART PER UNIT CHARGE SC SCH ×4 (08:41→21:57)
--- NOTE | 2023-02-19 08:55 | Pharmacy Report ---
Pharmacy Glycemic Short Note 2 - Date of Service February 19, 2023 - Glycemic Short BSG Results (Last 24 hours): 02/18/23 02/18/23 02/18/23 11:12 16:43 20:54 POC Glucose 140 H 142 H 153 H 02/19/23 07:45 POC Glucose 219 H OUTPATIENT ANTIDIABETIC REGIMEN: * Lantus 50 units SC HS * Glipizide 10 mg PO BIDM HbA1c: 8.2% (01/14/23) ASSESSMENT: 02/19/23: * BSGs have been well-controlled over past several days, however fasting BSG is elevated * Had been being conservative with Lantus given prior hypoglycemia in AM, but given elevated fasting BSGs, will increase today * Patient awaiting placement 02/16/23: * AISLINN is a 52 year old male well known to pharmacy glycemic service * Majority of inpatient glycemic data has been while patient was on IV steroids, no steroids at this time * Presented to ED with rectal bleeding - on chronic warfarin * Originally NPO, now ordered full liquid diet * Unfortunately, patient hypoglycemic this morning at 59 mg/dL after receiving 50 units of basal insulin last evening PLAN FOR INPATIENT GLYCEMIC CONTROL: * Hold outpatient oral diabetes medications * Basal insulin - increase * Lantus 20 units SC daily * Lantus 10-20 units SC HS (see EHR for details) * Bolus insulin * NovoLog per scale ACHS or Q6hrs while NPO * Goal Range: Low 110 mg/dL - High 140 mg/dL * Correction Factor: 20 mg/dL/unit * Nutritional / Prandial insulin per carb ratio of 1 unit per 7 grams CHO consumed
[2023-02-19] MEDS ORDERED: LANTUS PER UNIT CHARGE SC SCH (09:00)
[2023-02-19 09:01] LABS: Hematocrit (blood only) 38.5 % (42.0-52.0); Hemoglobin 11.8 g/dl (14.0-18.0)
[2023-02-19 09:32] LABS: BUN Creatinine Ratio 12.8 (10-20); Calcium 9.6 mg/dl (8.6-10.3); Creatinine Clr Calc Pharmacy 147.2 ml/min; Est GFR (Non-African American) 77.6 ml/min; Potassium 3.6 mmol/L (3.5-5.1)
[2023-02-19 09:36] LABS: Prothrombin Time 11.3 Seconds (9.0-12.0)
[2023-02-19] MEDS: COUGH DROP (SUGAR FREE) LOZ 24 LOZ/1 BOX BUCCAL PRN (11:03)
[2023-02-19] MEDS: METOPROLOL SUCC 25MG EXT REL TAB PO SCH ×2 (11:03→22:03)
[2023-02-19] MEDS: SODIUM CHLOR 7% 4 ML NEB NEB SCH ×2 (13:25→19:40)
[2023-02-19] MEDS: ALBUTEROL HFA 8 GM INHALER INH PRN ×2 (13:25→19:41)
[2023-02-19] MEDS: ATORVASTATIN 40 MG TAB PO SCH (14:05)
--- NOTE | 2023-02-19 16:15 | Hospitalist Progress Note ---
Date of Service February 19, 2023 Assessment & Plan (1) Bright red rectal bleeding: Plan: Rectal Bleed: In setting of Aspirin, Coumadin use INR:1.9>1.6>1.1 Stool guaiac Positive in ED Received Vit K Monitor H&H Transfuse PRBCs as needed Held Aspirin, Coumadin Initially Prednisone discontinued Avoids NASIDs Continue Protonix Appreciate GI Input Will eventually need outpatient colonoscopy Discussed with GI on 02/17/23: Okay to resume Coumadin, Aspirin Monitor CBC Hb 11.8 today No recurrence of rectal bleed during hospitalization Physical deconditioning Secondary to comorbidities PT OT recommends rehab Continue PT OT: Recommends Rehab Case management to help with discharge planning H/O Recurrent UTI: Likely colonization Urine culture grew Klebsiella Continue IV Rocephin: Discontinued after receiving 3 doses Lloyd catheter changed Appreciate ID input: Recommends to discontinue Lloyd catheter Patient patient prefers to continue Lloyd catheter despite explaining the risks and complications. He prefers to follow-up with urology as outpatient and consider to get Lloyd catheter removed as outpatient Offered urology evaluation while inpatient, currently patient seemed to be not interested as had recurrent retention issues in the past COPD Chronic respiratory failure with hypoxia CXR:Cardiomegaly without acute process. No signs of exacerbation Continue home inhalers Titrate oxygen to keep saturations 88 to 92% Nebs as needed H/O PE on chronic anticoagulation with Warfarin INR 1.6>1.0 Continue Coumadin Adjust Coumadin dose as needed Chronic HFpEF Continue Lasix Monitor volume status, daily weight Monitor volume status DM II Continue Insulin per protocol Monitor BGs Chronic opioid use Medical noncompliance DVT Px: Coumadin SCDs CODE STATUS Full Code Admission and Anticipated Discharge Date Admission Date: February 15, 2023 Subjective Patient is seen and examined at bedside No new complaints Waiting for rehab placement Chronic cough and dyspnea on exertion Saturating well on room air No recurrence of rectal bleed Hemoglobin stable Review of Systems Review of Systems: All systems reviewed & are unremarkable except as noted in Subjective Physical Exam Physical Exam: Physical Exam: Vitals signs as noted above General Appearance:Morbidly Obese, no apparent distress Head: normocephalic, Atraumatic Eyes: normal inspection, EOMI Neck: supple, Trachea midline Respiratory/Chest: Decreased coarse breath sounds, No accessory muscle use Cardiovascular: S1, S2, No murmur Abdomen/GI:Soft, Non tender, normal Bowel sounds Extremities/Musculoskeletal:normal inspection, + B/L Pedal edema, chronic venous stasis changes Neurologic/Psych:AAOX3, grossly no focal neurological deficits Skin: normal color, warm Results & Data Results & Data Vital Signs (Past 12 Hours) Vital Signs Temp Pulse Pulse Resp BP Pulse Ox O2 Del Method 02/19/23 15:53 36.8 C 79 20 122/74 93 Room Air 02/19/23 15:01 Nasal Cannula 02/19/23 13:25 79 18 98 Nasal Cannula 02/19/23 11:36 36.9 C 77 20 116/67 94 Room Air 02/19/23 07:52 36.7 C 81 20 136/74 99 Nasal Cannula 02/19/23 07:20 71 O2 Flow Rate 02/19/23 15:53 02/19/23 15:01 2 02/19/23 13:25 3 02/19/23 11:36 02/19/23 07:52 4 02/19/23 07:20 Laboratory Results Short CBC 02/19/23 Range/Units 08:12 Hgb 11.8 L (14.0-18.0) g/dl Hct 38.5 L (42.0-52.0) % BMP 02/19/23 08:12 Sodium 138 Potassium 3.6 Chloride 98 Carbon Dioxide 35 H BUN 14 Creatinine 1.09 Glucose 162 H Calcium 9.6
[2023-02-19] MEDS: WARFARIN SOD 5 MG TAB PO SCH (17:00)
[2023-02-19] MEDS: LANTUS PER UNIT CHARGE SC SCH (21:58)
[2023-02-20] MEDS: COUGH DROP (SUGAR FREE) LOZ 24 LOZ/1 BOX BUCCAL PRN (03:01)
[2023-02-20] MEDS: ACETAMINOPHEN 1,000 MG/100 ML VIAL IV PRN ×3 (03:06→20:55)
[2023-02-20] MEDS: SODIUM CHLOR 7% 4 ML NEB NEB SCH ×2 (07:33→18:59)
[2023-02-20 08:26] LABS: Hematocrit (blood only) 36.5 % (42.0-52.0); Hemoglobin 11.4 g/dl (14.0-18.0)
[2023-02-20] MEDS: LORazepam 0.5 MG TAB PO PRN ×2 (08:28→20:45)
[2023-02-20] MEDS: INSULIN ASPART PER UNIT CHARGE SC SCH ×4 (08:28→20:41)
[2023-02-20] MEDS: LANTUS PER UNIT CHARGE SC SCH ×2 (08:29→20:46)
[2023-02-20] MEDS: CYCLOBENZAPRINE HCL 10 MG TAB PO PRN ×2 (08:30→20:45)
[2023-02-20] MEDS: buprenorphine HCL 8 MG SUBL SL SCH ×3 (08:30→20:46)
[2023-02-20] MEDS: ASPIRIN 81 MG ECTAB PO SCH (08:38)
[2023-02-20] MEDS: guaiFENesin 600 MG TABCR PO SCH ×2 (08:39→20:44)
[2023-02-20] MEDS: FUROSEMIDE 40 MG TAB PO SCH ×2 (08:39→20:45)
[2023-02-20] MEDS: FLUTICASONE PROPIONATE NA SPR 16 GM BTL SCH (08:39)
[2023-02-20] MEDS: GABAPENTIN 800 MG TAB PO SCH ×3 (08:39→20:44)
[2023-02-20] MEDS: DICLOFENAC SOD 1% GEL 100 GM TUBE EXT SCH ×2 (08:39→20:46)
[2023-02-20] MEDS: ISOSORBIDE DINITRATE 20 MG TAB PO SCH (08:39)
[2023-02-20] MEDS: CHOLECALCIFEROL 5,000 UNITS 125 MCG TAB PO SCH (08:39)
[2023-02-20] MEDS: FOLIC ACID 1 MG TAB PO SCH (08:39)
[2023-02-20] MEDS: DOCUSATE SODIUM 100 MG CAP PO SCH ×2 (08:39→20:45)
[2023-02-20] MEDS: FINASTERIDE 5 MG TAB PO SCH (08:39)
[2023-02-20] MEDS: DULoxetine HCL 60 MG CAP PO SCH (08:39)
[2023-02-20] MEDS: MAGNESIUM OXIDE 400 MG TAB PO SCH (08:40)
[2023-02-20] MEDS: NICOTINE 21 MG/24 HR TDSY TD SCH (08:40)
[2023-02-20] MEDS: METOPROLOL SUCC 25MG EXT REL TAB PO SCH ×2 (08:40→20:43)
[2023-02-20] MEDS: TAMSULOSIN HCL 0.4 MG CAP PO SCH (08:41)
[2023-02-20] MEDS: PANTOprazole 40 MG TAB PO SCH ×2 (08:41→20:43)
[2023-02-20] MEDS: NYSTATIN POWDER 15GM BTL EXT SCH ×2 (08:41→20:46)
[2023-02-20] MEDS: SPIRONOLACTONE 25 MG TAB PO SCH (08:41)
[2023-02-20] MEDS: POTASSIUM CHLORIDE CRTAB 20 MEQ TABCR PO SCH ×2 (08:41→20:43)
[2023-02-20] MEDS: POLYETHYLENE (MIRALAX) 17 GM PACK PO SCH (08:41)
[2023-02-20 08:44] LABS: INR 1.2 (0.9-1.1); Prothrombin Time 12.5 Seconds (9.0-12.0)
[2023-02-20] MEDS: ATORVASTATIN 40 MG TAB PO SCH (12:35)
[2023-02-20] MEDS ORDERED: FUROSEMIDE 40 MG/4 ML VIAL IV ONE (13:00)
--- NOTE | 2023-02-20 15:24 | Hospitalist Progress Note ---
Date of Service February 20, 2023 Assessment & Plan (1) Bright red rectal bleeding: Plan: Rectal Bleed: In setting of Aspirin, Coumadin use INR:1.9>1.6>1.1 Stool guaiac Positive in ED Received Vit K Monitor H&H Transfuse PRBCs as needed Held Aspirin, Coumadin Initially Prednisone discontinued Avoids NASIDs Continue Protonix Appreciate GI Input Will eventually need outpatient colonoscopy Discussed with GI on 02/17/23: Okay to resume Coumadin, Aspirin Monitor CBC Hb 11.4 today No recurrence of rectal bleed during hospitalization Waiting for rehab placement Physical deconditioning Secondary to comorbidities PT OT recommends rehab Continue PT OT: Recommends Rehab Case management to help with discharge planning H/O Recurrent UTI: Likely colonization Urine culture grew Klebsiella Continue IV Rocephin: Discontinued after receiving 3 doses Lloyd catheter changed Appreciate ID input: Recommends to discontinue Lloyd catheter Patient patient prefers to continue Lloyd catheter despite explaining the risks and complications. He prefers to follow-up with urology as outpatient and consider to get Lloyd catheter removed as outpatient Offered urology evaluation while inpatient, currently patient seemed to be not interested as had recurrent retention issues in the past COPD Chronic respiratory failure with hypoxia CXR:Cardiomegaly without acute process. No signs of exacerbation Continue home inhalers Titrate oxygen to keep saturations 88 to 92% Nebs as needed H/O PE on chronic anticoagulation with Warfarin INR 1.6>1.0>1.2 Continue Coumadin Adjust Coumadin dose as needed Chronic HFpEF Continue Lasix Monitor volume status, daily weight Monitor volume status DM II Continue Insulin per protocol Monitor BGs Chronic opioid use Medical noncompliance DVT Px: Coumadin SCDs CODE STATUS Full Code Disposition Rehab when accepted Admission and Anticipated Discharge Date Admission Date: February 15, 2023 Subjective Patient is seen and examined at bedside Waiting for rehab placement No significant change from yesterday Chronic cough and dyspnea on exertion Saturating well on room air No acute bleeding issues Hemoglobin stable Review of Systems Review of Systems: All systems reviewed & are unremarkable except as noted in Subjective Physical Exam Physical Exam: Physical Exam: Vitals signs as noted above General Appearance:Morbidly Obese, no apparent distress Head: normocephalic, Atraumatic Eyes: normal inspection, EOMI Neck: supple, Trachea midline Respiratory/Chest: Decreased coarse breath sounds, No accessory muscle use Cardiovascular: S1, S2, No murmur Abdomen/GI:Soft, Non tender, normal Bowel sounds Extremities/Musculoskeletal:normal inspection, + B/L Pedal edema, chronic venous stasis changes Neurologic/Psych:AAOX3, grossly no focal neurological deficits Skin: normal color, warm Results & Data Results & Data Vital Signs (Past 12 Hours) Vital Signs Temp Pulse Pulse Resp BP BP Pulse Ox 02/20/23 13:52 02/20/23 12:07 36.7 C 77 20 105/66 93 02/20/23 11:58 74 02/20/23 07:42 36.6 C 75 20 134/73 98 02/20/23 07:34 79 16 96 02/20/23 03:30 36.5 C 85 18 162/82 H 100 O2 Del Method O2 Flow Rate 02/20/23 13:52 Room Air 02/20/23 12:07 Nasal Cannula 2 02/20/23 11:58 02/20/23 07:42 Room Air 02/20/23 07:34 Room Air 02/20/23 03:30 Nasal Cannula 4 Laboratory Results Short CBC 02/20/23 Range/Units 07:17 Hgb 11.4 L (14.0-18.0) g/dl Hct 36.5 L (42.0-52.0) %
[2023-02-20] MEDS: WARFARIN SOD 5 MG TAB PO SCH (15:39)
[2023-02-21] MEDS: ACETAMINOPHEN 1,000 MG/100 ML VIAL IV PRN ×3 (05:12→22:10)
[2023-02-21 06:39] LABS: Hematocrit (blood only) 39.3 % (42.0-52.0); Hemoglobin 12.3 g/dl (14.0-18.0)
[2023-02-21 06:58] LABS: BUN Creatinine Ratio 11.7 (10-20); Calcium 9.2 mg/dl (8.6-10.3); Creatinine Clr Calc Pharmacy 155.6 ml/min; Est GFR (African American) 96.3 ml/min; Est GFR (Non-African American) 83.1 ml/min; Potassium 4.2 mmol/L (3.5-5.1)
[2023-02-21] MEDS: ALBUTEROL HFA 8 GM INHALER INH PRN (07:14)
[2023-02-21] MEDS: SODIUM CHLOR 7% 4 ML NEB NEB SCH (07:14)
[2023-02-21 07:49] LABS: INR 1.5 (0.9-1.1); Prothrombin Time 15.9 Seconds (9.0-12.0)
[2023-02-21] MEDS: LANTUS PER UNIT CHARGE SC SCH ×2 (08:30→20:46)
[2023-02-21] MEDS: LORazepam 0.5 MG TAB PO PRN ×2 (08:31→20:45)
[2023-02-21] MEDS: INSULIN ASPART PER UNIT CHARGE SC SCH ×4 (08:31→20:28)
[2023-02-21] MEDS: CYCLOBENZAPRINE HCL 10 MG TAB PO PRN ×2 (08:31→20:45)
[2023-02-21] MEDS: DICLOFENAC SOD 1% GEL 100 GM TUBE EXT SCH ×2 (08:32→20:46)
[2023-02-21] MEDS: DULoxetine HCL 60 MG CAP PO SCH (08:32)
[2023-02-21] MEDS: buprenorphine HCL 8 MG SUBL SL SCH ×3 (08:32→20:47)
[2023-02-21] MEDS: DOCUSATE SODIUM 100 MG CAP PO SCH ×2 (08:32→20:45)
[2023-02-21] MEDS: FINASTERIDE 5 MG TAB PO SCH (08:32)
[2023-02-21] MEDS: ASPIRIN 81 MG ECTAB PO SCH (08:32)
[2023-02-21] MEDS: CHOLECALCIFEROL 5,000 UNITS 125 MCG TAB PO SCH (08:32)
[2023-02-21] MEDS: FOLIC ACID 1 MG TAB PO SCH (08:32)
[2023-02-21] MEDS: FLUTICASONE PROPIONATE NA SPR 16 GM BTL SCH (08:32)
[2023-02-21] MEDS: ISOSORBIDE DINITRATE 20 MG TAB PO SCH (08:33)
[2023-02-21] MEDS: FUROSEMIDE 40 MG TAB PO SCH ×2 (08:33→20:45)
[2023-02-21] MEDS: guaiFENesin 600 MG TABCR PO SCH ×2 (08:33→20:45)
[2023-02-21] MEDS: GABAPENTIN 800 MG TAB PO SCH ×3 (08:33→20:45)
[2023-02-21] MEDS: METOPROLOL SUCC 25MG EXT REL TAB PO SCH ×2 (08:34→20:46)
[2023-02-21] MEDS: PANTOprazole 40 MG TAB PO SCH ×2 (08:34→20:45)
[2023-02-21] MEDS: MAGNESIUM OXIDE 400 MG TAB PO SCH (08:34)
[2023-02-21] MEDS: POLYETHYLENE (MIRALAX) 17 GM PACK PO SCH (08:34)
[2023-02-21] MEDS: NICOTINE 21 MG/24 HR TDSY TD SCH (08:34)
[2023-02-21] MEDS: NYSTATIN POWDER 15GM BTL EXT SCH ×2 (08:34→20:47)
[2023-02-21] MEDS: SPIRONOLACTONE 25 MG TAB PO SCH (08:35)
[2023-02-21] MEDS: TAMSULOSIN HCL 0.4 MG CAP PO SCH (08:35)
[2023-02-21] MEDS: POTASSIUM CHLORIDE CRTAB 20 MEQ TABCR PO SCH ×2 (08:35→20:44)
--- NOTE | 2023-02-21 11:26 | XRay Report ---
XR chest 1V portable HISTORY: 52 years-old Male sob acute shortness of breath COMPARISON: 02/15/2023 TECHNIQUE: AP view of the chest FINDINGS: Cardiac silhouette is enlarged. No pneumothorax, or overt pulmonary edema. Increased density of the l cathy bases, likely secondary to summation density. Left basilar opacities likely secondary to prominen t epicardial fat pad with atelectasis. Bones appear grossly intact. IMPRESSION: Cardiomegaly without acute process. ACT 112: Negative or not required by law. The above report was generated using voice recognition software. It may contain grammatical, syntax o r spelling errors. Electronically signed by: Shelton Apodaca M.D. 02/21/2023 11:24 AM
[2023-02-21] MEDS: ATORVASTATIN 40 MG TAB PO SCH (13:43)
--- NOTE | 2023-02-21 15:31 | Hospitalist Progress Note ---
Date of Service February 21, 2023 Assessment & Plan (1) Bright red rectal bleeding: Plan: Rectal Bleed: In setting of Aspirin, Coumadin use INR:1.9 on presentation Stool guaiac Positive in ED Received Vit K Monitor H&H Transfuse PRBCs as needed Held Aspirin, Coumadin Initially Prednisone discontinued Avoids NASIDs Continue Protonix Appreciate GI Input Will eventually need outpatient colonoscopy Discussed with GI on 02/17/23: Okay to resume Coumadin, Aspirin Monitor CBC No recurrence of rectal bleed during hospitalization Waiting for rehab placement Hb stable Physical deconditioning Secondary to comorbidities PT OT recommends rehab Continue PT OT: Recommends Rehab Case management to help with discharge planning H/O Recurrent UTI: Likely colonization Urine culture grew Klebsiella Continue IV Rocephin: Discontinued after receiving 3 doses Lloyd catheter changed Appreciate ID input: Recommends to discontinue Lloyd catheter Patient patient prefers to continue Lloyd catheter despite explaining the risks and complications. He prefers to follow-up with urology as outpatient and consider to get Lloyd catheter removed as outpatient Offered urology evaluation while inpatient, currently patient seemed to be not interested as had recurrent retention issues in the past COPD Chronic respiratory failure with hypoxia CXR:Cardiomegaly without acute process. No signs of exacerbation Continue home inhalers Titrate oxygen to keep saturations 88 to 92% Nebs as needed Chest x-ray today showed no acute process H/O PE on chronic anticoagulation with Warfarin INR 1.6>1.0>1.2>1.5 Continue Coumadin Adjust Coumadin dose as needed Chronic HFpEF Continue Lasix Monitor volume status, daily weight Monitor volume status DM II Continue Insulin per protocol Monitor BGs Chronic opioid use Medical noncompliance DVT Px: Coumadin SCDs CODE STATUS Full Code Disposition Rehab when accepted Admission and Anticipated Discharge Date Admission Date: February 15, 2023 Subjective Patient is seen and examined at bedside No new complaints Chronic cough and dyspnea on exertion Waiting for rehab placement Review of Systems Review of Systems: All systems reviewed & are unremarkable except as noted in Subjective Physical Exam Physical Exam: Physical Exam: Vitals signs as noted above General Appearance:Morbidly Obese, no apparent distress Head: normocephalic, Atraumatic Eyes: normal inspection, EOMI Neck: supple, Trachea midline Respiratory/Chest: Decreased coarse breath sounds with scattered wheezes, No accessory muscle use Cardiovascular: S1, S2, No murmur Abdomen/GI:Soft, Non tender, normal Bowel sounds Extremities/Musculoskeletal:normal inspection, + B/L Pedal edema, chronic venous stasis changes Neurologic/Psych:AAOX3, grossly no focal neurological deficits Skin: normal color, warm Results & Data Results & Data Vital Signs (Past 12 Hours) Vital Signs Temp Pulse Pulse Resp BP BP Pulse Ox 02/21/23 15:15 78 02/21/23 15:01 02/21/23 11:33 36.8 C 79 20 118/70 93 02/21/23 08:00 73 02/21/23 07:38 36.5 C 72 20 121/71 95 02/21/23 07:16 78 18 98 O2 Del Method O2 Flow Rate 02/21/23 15:15 02/21/23 15:01 Room Air 02/21/23 11:33 Room Air 02/21/23 08:00 02/21/23 07:38 Room Air 02/21/23 07:16 Nasal Cannula 4 Laboratory Results Short CBC 02/21/23 Range/Units 05:44 Hgb 12.3 L (14.0-18.0) g/dl Hct 39.3 L (42.0-52.0) % BMP 02/21/23 05:44 Sodium 138 Potassium 4.2 Chloride 100 Carbon Dioxide 33 H BUN 12 Creatinine 1.03 Glucose 185 H Calcium 9.2
[2023-02-21] MEDS: WARFARIN SOD 5 MG TAB PO SCH (16:04)
[2023-02-22 08:50] LABS: Prothrombin Time 20.7 Seconds (9.0-12.0)
[2023-02-22] MEDS: INSULIN ASPART PER UNIT CHARGE SC SCH ×4 (09:59→21:53)
[2023-02-22] MEDS: LANTUS PER UNIT CHARGE SC SCH (09:59)
[2023-02-22] MEDS: LORazepam 0.5 MG TAB PO PRN ×2 (10:02→20:59)
[2023-02-22] MEDS: buprenorphine HCL 8 MG SUBL SL SCH ×3 (10:02→20:59)
[2023-02-22] MEDS: CYCLOBENZAPRINE HCL 10 MG TAB PO PRN ×2 (10:02→20:59)
[2023-02-22] MEDS: ASPIRIN 81 MG ECTAB PO SCH (10:08)
[2023-02-22] MEDS: POLYETHYLENE (MIRALAX) 17 GM PACK PO SCH (10:08)
[2023-02-22] MEDS: CHOLECALCIFEROL 5,000 UNITS 125 MCG TAB PO SCH (10:09)
[2023-02-22] MEDS: FLUTICASONE PROPIONATE NA SPR 16 GM BTL SCH (10:09)
[2023-02-22] MEDS: DULoxetine HCL 60 MG CAP PO SCH (10:09)
[2023-02-22] MEDS: FINASTERIDE 5 MG TAB PO SCH (10:09)
[2023-02-22] MEDS: DICLOFENAC SOD 1% GEL 100 GM TUBE EXT SCH ×2 (10:09→21:00)
[2023-02-22] MEDS: DOCUSATE SODIUM 100 MG CAP PO SCH ×2 (10:09→21:02)
[2023-02-22] MEDS: GABAPENTIN 800 MG TAB PO SCH ×3 (10:10→21:03)
[2023-02-22] MEDS: FOLIC ACID 1 MG TAB PO SCH (10:10)
[2023-02-22] MEDS: ISOSORBIDE DINITRATE 20 MG TAB PO SCH (10:10)
[2023-02-22] MEDS: FUROSEMIDE 40 MG TAB PO SCH ×2 (10:10→21:09)
[2023-02-22] MEDS: guaiFENesin 600 MG TABCR PO SCH ×2 (10:10→21:02)
[2023-02-22] MEDS: NICOTINE 21 MG/24 HR TDSY TD SCH (10:11)
[2023-02-22] MEDS: METOPROLOL SUCC 25MG EXT REL TAB PO SCH ×2 (10:11→21:01)
[2023-02-22] MEDS: MAGNESIUM OXIDE 400 MG TAB PO SCH (10:11)
[2023-02-22] MEDS: TAMSULOSIN HCL 0.4 MG CAP PO SCH (10:12)
[2023-02-22] MEDS: POTASSIUM CHLORIDE CRTAB 20 MEQ TABCR PO SCH ×2 (10:12→21:02)
[2023-02-22] MEDS: PANTOprazole 40 MG TAB PO SCH ×2 (10:12→21:01)
[2023-02-22] MEDS: SPIRONOLACTONE 25 MG TAB PO SCH (10:12)
[2023-02-22] MEDS: NYSTATIN POWDER 15GM BTL EXT SCH ×2 (10:12→21:04)
[2023-02-22] MEDS: ACETAMINOPHEN 1,000 MG/100 ML VIAL IV PRN ×2 (10:16→20:16)
[2023-02-22] MEDS ORDERED: ONDANSETRON INJ 2 MG/ML 2 ML VIAL IV PRN (12:34)
[2023-02-22] MEDS: ATORVASTATIN 40 MG TAB PO SCH (13:09)
[2023-02-22] MEDS: WARFARIN SOD 5 MG TAB PO SCH (16:27)
--- NOTE | 2023-02-22 17:30 | Hospitalist Progress Note ---
Date of Service February 22, 2023 Assessment & Plan (1) Bright red rectal bleeding: Plan: Rectal Bleed: In setting of Aspirin, Coumadin use INR:1.9 on presentation Stool guaiac Positive in ED Received Vit K Monitor H&H Transfuse PRBCs as needed Held Aspirin, Coumadin Initially Prednisone discontinued Avoids NASIDs Continue Protonix Appreciate GI Input Will eventually need outpatient colonoscopy Discussed with GI on 02/17/23: Okay to resume Coumadin, Aspirin Monitor CBC No recurrence of rectal bleed during hospitalization Hb stable Waiting for rehab placement Physical deconditioning Secondary to comorbidities PT OT recommends rehab Continue PT OT: Recommends Rehab Case management to help with discharge planning H/O Recurrent UTI: Likely colonization Urine culture grew Klebsiella Continue IV Rocephin: Discontinued after receiving 3 doses Lloyd catheter changed Appreciate ID input: Recommends to discontinue Lloyd catheter Patient patient prefers to continue Lloyd catheter despite explaining the risks and complications. He prefers to follow-up with urology as outpatient and consider to get Lloyd catheter removed as outpatient Offered urology evaluation while inpatient, currently patient seemed to be not interested as had recurrent retention issues in the past COPD Chronic respiratory failure with hypoxia CXR:Cardiomegaly without acute process. No signs of exacerbation Continue home inhalers Titrate oxygen to keep saturations 88 to 92% Nebs as needed Chest x-ray today showed no acute process H/O PE on chronic anticoagulation with Warfarin INR 1.6>1.0>1.2>1.5>2.0 Continue Coumadin Adjust Coumadin dose as needed Chronic HFpEF Continue Lasix Monitor volume status, daily weight Monitor volume status DM II Continue Insulin per protocol Monitor BGs Chronic opioid use Medical noncompliance DVT Px: Coumadin CODE STATUS Full Code Disposition Waiting Rehab placement Admission and Anticipated Discharge Date Admission Date: February 15, 2023 Subjective Patient is seen and examined at bedside States having nausea earlier today which later resolved No new complaints otherwise Chronic cough and dyspnea on exertion Waiting for rehab placement Review of Systems Review of Systems: All systems reviewed & are unremarkable except as noted in Subjective Physical Exam Physical Exam: Physical Exam: Vitals signs as noted above General Appearance:Morbidly Obese, no apparent distress Head: normocephalic, Atraumatic Eyes: normal inspection, EOMI Neck: supple, Trachea midline Respiratory/Chest: Decreased coarse breath sounds with scattered wheezes, No accessory muscle use Cardiovascular: S1, S2, No murmur Abdomen/GI:Soft, Non tender, normal Bowel sounds Extremities/Musculoskeletal:normal inspection, + B/L Pedal edema, chronic venous stasis changes Neurologic/Psych:AAOX3, grossly no focal neurological deficits Skin: normal color, warm Results & Data Results & Data Vital Signs (Past 12 Hours) Vital Signs Temp Pulse Pulse Resp BP Pulse Ox O2 Del Method 02/22/23 15:24 84 02/22/23 14:41 36.6 C 74 16 144/68 H 97 Room Air 02/22/23 13:43 Room Air, Nasal Cannula 02/22/23 11:35 36.8 C 83 16 134/67 95 Nasal Cannula 02/22/23 05:59 64 02/22/23 08:02 36.5 C 72 20 143/81 H 99 Nasal Cannula O2 Flow Rate 02/22/23 15:24 02/22/23 14:41 02/22/23 13:43 2 02/22/23 11:35 02/22/23 05:59 02/22/23 08:02 4 Laboratory Results [facility] 02/22/23 07:52 Glucose 145 H
[2023-02-22] MEDS ORDERED: LANTUS PER UNIT CHARGE SC SCH (21:00)
[2023-02-23] MEDS: BENZONATATE 100 MG CAPSULE PO PRN (04:07)
[2023-02-23] MEDS: INSULIN ASPART PER UNIT CHARGE SC SCH ×4 (08:20→21:07)
[2023-02-23] MEDS: ACETAMINOPHEN 1,000 MG/100 ML VIAL IV PRN ×2 (08:28→17:01)
[2023-02-23 10:38] LABS: Hematocrit (blood only) 38.5 % (42.0-52.0)
[2023-02-23 10:51] LABS: Calcium 9.3 mg/dl (8.6-10.3); Creatinine Clr Calc Pharmacy 172.3 ml/min; Est GFR (Non-African American) 94.1 ml/min; Potassium 3.9 mmol/L (3.5-5.1)
[2023-02-23 10:55] LABS: INR 2.6 (0.9-1.1); Prothrombin Time 26.6 Seconds (9.0-12.0)
[2023-02-23] MEDS: NITROGLYCERIN SL 0.4 MG/TAB TAB SL PRN ×3 (11:03→11:42)
[2023-02-23] MEDS: LANTUS PER UNIT CHARGE SC SCH (11:04)
[2023-02-23] MEDS: LORazepam 0.5 MG TAB PO PRN ×2 (11:05→21:08)
[2023-02-23] MEDS: buprenorphine HCL 8 MG SUBL SL SCH ×3 (11:05→21:08)
[2023-02-23] MEDS: FUROSEMIDE 40 MG TAB PO SCH ×2 (11:06→21:09)
[2023-02-23] MEDS: CYCLOBENZAPRINE HCL 10 MG TAB PO PRN ×2 (11:06→21:08)
[2023-02-23] MEDS: TAMSULOSIN HCL 0.4 MG CAP PO SCH (11:07)
[2023-02-23] MEDS: POTASSIUM CHLORIDE CRTAB 20 MEQ TABCR PO SCH ×2 (11:07→21:09)
[2023-02-23] MEDS: GABAPENTIN 800 MG TAB PO SCH ×3 (11:07→21:08)
[2023-02-23] MEDS: CHOLECALCIFEROL 5,000 UNITS 125 MCG TAB PO SCH (11:07)
[2023-02-23] MEDS: DULoxetine HCL 60 MG CAP PO SCH (11:07)
[2023-02-23] MEDS: FINASTERIDE 5 MG TAB PO SCH (11:08)
[2023-02-23] MEDS: SPIRONOLACTONE 25 MG TAB PO SCH (11:08)
[2023-02-23] MEDS: ASPIRIN 81 MG ECTAB PO SCH (11:08)
[2023-02-23] MEDS: FOLIC ACID 1 MG TAB PO SCH (11:09)
[2023-02-23] MEDS: FLUTICASONE PROPIONATE NA SPR 16 GM BTL SCH (11:09)
[2023-02-23] MEDS: DOCUSATE SODIUM 100 MG CAP PO SCH ×2 (11:09→21:08)
[2023-02-23] MEDS: guaiFENesin 600 MG TABCR PO SCH ×2 (11:10→21:10)
[2023-02-23] MEDS: ISOSORBIDE DINITRATE 20 MG TAB PO SCH (11:10)
[2023-02-23] MEDS: PANTOprazole 40 MG TAB PO SCH ×2 (11:10→21:10)
[2023-02-23] MEDS: MAGNESIUM OXIDE 400 MG TAB PO SCH (11:10)
[2023-02-23] MEDS: METOPROLOL SUCC 25MG EXT REL TAB PO SCH ×2 (11:10→21:09)
[2023-02-23] MEDS: POLYETHYLENE (MIRALAX) 17 GM PACK PO SCH (11:11)
[2023-02-23] MEDS: NICOTINE 21 MG/24 HR TDSY TD SCH (11:22)
[2023-02-23] MEDS: DICLOFENAC SOD 1% GEL 100 GM TUBE EXT SCH ×2 (11:26→21:07)
[2023-02-23] MEDS: NYSTATIN POWDER 15GM BTL EXT SCH ×2 (11:27→22:08)
[2023-02-23] MEDS ORDERED: FAMOTIDINE 20 MG in SYRINGE 3 ML IV ONE (12:30)
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
[2023-02-23] MEDS: ATORVASTATIN 40 MG TAB PO SCH (14:05)
--- NOTE | 2023-02-23 14:10 | Pharmacy Report ---
Pharmacy Glycemic Short Note 2 - Date of Service February 23, 2023 - Glycemic Short BSG Results (Last 24 hours): 02/22/23 02/22/23 02/23/23 16:37 20:16 07:31 Glucose POC Glucose 189 H 154 H 176 H 02/23/23 02/23/23 09:49 11:31 Glucose 157 H POC Glucose 157 H OUTPATIENT ANTIDIABETIC REGIMEN: * Lantus 50 units SC HS * Glipizide 10 mg PO BIDM HbA1c: 8.2% (01/14/23) ASSESSMENT: 02/23/23: * Patient received total of 65 units of insulin yesterday, of which 30 units were basal insulin * Fasting BSG 176 mg/dL - will increase to 35 units of basal * No change to CF/CR 02/19/23: * BSGs have been well-controlled over past several days, however fasting BSG is elevated * Had been being conservative with Lantus given prior hypoglycemia in AM, but given elevated fasting BSGs, will increase today * Patient awaiting placement 02/16/23: * AISLINN is a 52 year old male well known to pharmacy glycemic service * Majority of inpatient glycemic data has been while patient was on IV steroids, no steroids at this time * Presented to ED with rectal bleeding - on chronic warfarin * Originally NPO, now ordered full liquid diet * Unfortunately, patient hypoglycemic this morning at 59 mg/dL after receiving 50 units of basal insulin last evening PLAN FOR INPATIENT GLYCEMIC CONTROL: * Hold outpatient oral diabetes medications * Basal insulin - increase * Lantus 20 units SC daily * Lantus 15 units HS * Bolus insulin * NovoLog per scale ACHS or Q6hrs while NPO * Goal Range: Low 110 mg/dL - High 140 mg/dL * Correction Factor: 20 mg/dL/unit * Nutritional / Prandial insulin per carb ratio of 1 unit per 7 grams CHO consumed
--- NOTE | 2023-02-23 15:52 | Hospitalist Progress Note ---
Date of Service February 23, 2023 Assessment & Plan (1) Bright red rectal bleeding: Plan: Rectal Bleed: In setting of Aspirin, Coumadin use INR:1.9 on presentation Stool guaiac Positive in ED Received Vit K Monitor H&H Transfuse PRBCs as needed Held Aspirin, Coumadin Initially Prednisone discontinued Avoids NASIDs Continue Protonix Appreciate GI Input Will eventually need outpatient colonoscopy Discussed with GI on 02/17/23: Okay to resume Coumadin, Aspirin Monitor CBC No recurrence of rectal bleed during hospitalization Hb stable Waiting for rehab placement Atypical Chest Pain Troponin Negative EKG: Nonspecific ST-T changes Appreciate cardiology input No improvement with NTG Given Pepcid Physical deconditioning Secondary to comorbidities PT OT recommends rehab Continue PT OT: Recommends Rehab Case management to help with discharge planning H/O Recurrent UTI: Likely colonization Urine culture grew Klebsiella Continue IV Rocephin: Discontinued after receiving 3 doses Lloyd catheter changed Appreciate ID input: Recommends to discontinue Lloyd catheter Patient patient prefers to continue Lloyd catheter despite explaining the risks and complications. He prefers to follow-up with urology as outpatient and consider to get Lloyd catheter removed as outpatient Offered urology evaluation while inpatient, currently patient seemed to be not interested as had recurrent retention issues in the past COPD Chronic respiratory failure with hypoxia CXR:Cardiomegaly without acute process. No signs of exacerbation Continue home inhalers Titrate oxygen to keep saturations 88 to 92% Nebs as needed Chest x-ray today showed no acute process H/O PE on chronic anticoagulation with Warfarin INR 1.6>1.0>1.2>1.5>2.0>2.6 Continue Coumadin Adjust Coumadin dose as needed Chronic HFpEF Continue Lasix Monitor volume status, daily weight Monitor volume status DM II Continue Insulin per protocol Monitor BGs Chronic opioid use Medical noncompliance DVT Px: Coumadin CODE STATUS Full Code Disposition Waiting Rehab placement Admission and Anticipated Discharge Date Admission Date: February 15, 2023 Subjective Patient is seen and examined at bedside States having left sided sharp chest pain radiating to LUE this morning Discussed with cardiology today Chronic cough and dyspnea on exertion Waiting for rehab placement Review of Systems Review of Systems: All systems reviewed & are unremarkable except as noted in Subjective Physical Exam Physical Exam: Physical Exam: Vitals signs as noted above General Appearance:Morbidly Obese, no apparent distress Head: normocephalic, Atraumatic Eyes: normal inspection, EOMI Neck: supple, Trachea midline Respiratory/Chest: Decreased coarse breath sounds with scattered wheezes, No accessory muscle use Cardiovascular: S1, S2, No murmur Abdomen/GI:Soft, Non tender, normal Bowel sounds Extremities/Musculoskeletal:normal inspection, + B/L Pedal edema, chronic venous stasis changes Neurologic/Psych:AAOX3, grossly no focal neurological deficits Skin: normal color, warm Results & Data Results & Data Vital Signs (Past 12 Hours) Vital Signs Temp Pulse Resp BP BP Pulse Ox O2 Del Method 02/23/23 11:48 90 18 93 Nasal Cannula 02/23/23 11:42 37.1 C 82 18 121/68 97 Nasal Cannula 02/23/23 08:10 36.6 C 74 18 123/74 99 Nasal Cannula 02/23/23 04:07 36.7 C 93 H 18 110/65 98 Nasal Cannula O2 Flow Rate 02/23/23 11:48 4 02/23/23 11:42 4 02/23/23 08:10 4 02/23/23 04:07 4 Laboratory Results Short CBC 02/23/23 Range/Units 09:49 Hgb 12.0 L (14.0-18.0) g/dl Hct 38.5 L (42.0-52.0) % BMP 02/23/23 09:49 Sodium 140 Potassium 3.9 Chloride 100 Carbon Dioxide 36 H BUN 13 Creatinine 0.93 Glucose 157 H Calcium 9.3
[2023-02-23] MEDS: WARFARIN SOD 3 MG TAB PO SCH (16:56)
[2023-02-23] MEDS ORDERED: PROMETHAZINE HCL 6.25 MG in SODIUM CHLORIDE 0.9% 50 ML IV PRN (17:08)
[2023-02-23] MEDS ORDERED: LANTUS PER UNIT CHARGE SC SCH (21:00)
[2023-02-24] MEDS: ACETAMINOPHEN 1,000 MG/100 ML VIAL IV PRN ×3 (01:22→20:32)
[2023-02-24] MEDS: INSULIN ASPART PER UNIT CHARGE SC SCH ×4 (08:53→20:35)
[2023-02-24] MEDS: buprenorphine HCL 8 MG SUBL SL SCH ×3 (08:53→20:34)
[2023-02-24] MEDS: LANTUS PER UNIT CHARGE SC SCH (08:53)
[2023-02-24] MEDS: ASPIRIN 81 MG ECTAB PO SCH (08:54)
[2023-02-24] MEDS: TAMSULOSIN HCL 0.4 MG CAP PO SCH (08:54)
[2023-02-24] MEDS: ISOSORBIDE DINITRATE 20 MG TAB PO SCH (08:54)
[2023-02-24] MEDS: SPIRONOLACTONE 25 MG TAB PO SCH (08:55)
[2023-02-24] MEDS: MAGNESIUM OXIDE 400 MG TAB PO SCH (08:55)
[2023-02-24] MEDS: FINASTERIDE 5 MG TAB PO SCH (08:55)
[2023-02-24] MEDS: DICLOFENAC SOD 1% GEL 100 GM TUBE EXT SCH ×2 (08:55→20:38)
[2023-02-24] MEDS: PANTOprazole 40 MG TAB PO SCH ×2 (08:55→20:36)
[2023-02-24] MEDS: METOPROLOL SUCC 25MG EXT REL TAB PO SCH ×2 (08:55→20:37)
[2023-02-24] MEDS: FOLIC ACID 1 MG TAB PO SCH (08:55)
[2023-02-24] MEDS: DULoxetine HCL 60 MG CAP PO SCH (08:55)
[2023-02-24] MEDS: FUROSEMIDE 40 MG TAB PO SCH (08:55)
[2023-02-24] MEDS: DOCUSATE SODIUM 100 MG CAP PO SCH ×2 (08:56→20:36)
[2023-02-24] MEDS: GABAPENTIN 800 MG TAB PO SCH ×3 (08:56→20:36)
[2023-02-24] MEDS: guaiFENesin 600 MG TABCR PO SCH ×2 (08:56→20:36)
[2023-02-24] MEDS: POTASSIUM CHLORIDE CRTAB 20 MEQ TABCR PO SCH ×2 (08:56→20:35)
[2023-02-24] MEDS: CHOLECALCIFEROL 5,000 UNITS 125 MCG TAB PO SCH (08:57)
[2023-02-24] MEDS: NICOTINE 21 MG/24 HR TDSY TD SCH (08:57)
[2023-02-24] MEDS: POLYETHYLENE (MIRALAX) 17 GM PACK PO SCH (08:57)
[2023-02-24] MEDS: FLUTICASONE PROPIONATE NA SPR 16 GM BTL SCH (08:57)
[2023-02-24] MEDS: NYSTATIN POWDER 15GM BTL EXT SCH ×2 (08:57→20:38)
[2023-02-24 10:05] LABS: INR 2.5 (0.9-1.1); Prothrombin Time 25.8 Seconds (9.0-12.0)
[2023-02-24] MEDS: ATORVASTATIN 40 MG TAB PO SCH (12:15)
[2023-02-24] MEDS: CYCLOBENZAPRINE HCL 10 MG TAB PO PRN ×2 (14:18→20:33)
--- NOTE | 2023-02-24 15:40 | Hospitalist Progress Note ---
Date of Service February 24, 2023 Assessment & Plan (1) Bright red rectal bleeding: Plan: Rectal Bleed: Likely secondary to hemorrhoidal bleed In setting of Aspirin, Coumadin use INR:1.9 on presentation Stool guaiac Positive in ED Received Vit K Monitor H&H-hemoglobin remains stable since admission which is 12.0 as of 02/24/2023 Held Aspirin, Coumadin Initially-restarted Prednisone discontinued Avoids NASIDs Continue Protonix Appreciate GI Input and recommendation-colonoscopy as an outpatient Awaiting placement Atypical Chest Pain Troponin Negative EKG: Nonspecific ST-T changes Appreciate cardiology input and recommendation Musculoskeletal chest pain and is noncardiac No more pain reported as of today Physical deconditioning Secondary to comorbidities PT OT recommends rehab Continue PT OT: Recommends Rehab Case management to help with discharge planning Awaiting placement H/O Recurrent UTI: Likely colonization Urine culture grew Klebsiella Continue IV Rocephin: Discontinued after receiving 3 doses Lloyd catheter changed Appreciate ID input: Recommends to discontinue Lloyd catheter Patient patient prefers to continue Lloyd catheter despite explaining the risks and complications. He prefers to follow-up with urology as outpatient and consider to get Lloyd catheter removed as outpatient Offered urology evaluation while inpatient, currently patient seemed to be not interested as had recurrent retention issues in the past No evidence of UTI at this time COPD Chronic respiratory failure with hypoxia CXR:Cardiomegaly without acute process. No signs of exacerbation Continue home inhalers Titrate oxygen to keep saturations 88 to 92% Nebs as needed Chest x-ray today showed no acute process Wheezing which would be persisting-no need to restart it steroid H/O PE on chronic anticoagulation with Warfarin INR 1.6>1.0>1.2>1.5>2.0>2.6 Continue Coumadin Adjust Coumadin dose as needed INR remains therapeutic Chronic HFpEF Continue Lasix Monitor volume status, daily weight Monitor volume status Will give intravenous Lasix for further improvement of crackles in the chest DM II Continue Insulin per protocol Monitor BGs Chronic opioid use Medical noncompliance DVT Px: Coumadin CODE STATUS Full Code Disposition Waiting Rehab placement Admission and Anticipated Discharge Date Admission Date: February 15, 2023 Subjective 02/24/2023 The patient was seen and examined in medical telemetry unit He has been stable and denies any significant symptoms No more hematochezia and hemoglobin remains stable Minimal wheezing on examination Review of Systems Review of Systems: All systems reviewed and are unremarkable except as mentioned below Physical Exam Physical Exam: Lying in bed comfortably Constitutional: well developed, well nourished and + morbidly obese; not ill appearing Eyes: PERRL, conjunctivae normal, anicteric sclerae ENMT: external ear and nose normal, oropharynx normal Neck: trachea midline, no thyromegaly Respiratory: no respiratory distress Auscultation: + diminished lung sounds, + crackles (Minimal crackles at the bases) and + wheezes (Minimal wheezing as usual) Cardiovascular: Rate/Rhythm: regular rate and regular rhythm; not tachycardic Heart Sounds: normal S1 and normal S2; no murmur Extremities: + edema (Trace edema bilaterally with chronic skin changes) Gastrointestinal (Abdomen): Inspection/Auscultation: + abdomen distended and normal bowel sounds Percussion/Palpation: abdomen soft; abdomen nontender Musculoskeletal: No acute arthritis involving any joint Neurologic: normal touch/pain/proprioception and moves all extremities; no focal motor deficits Results & Data Results & Data Vital Signs (Past 12 Hours) Vital Signs Temp Pulse Pulse Resp BP Pulse Ox O2 Del Method 02/24/23 15:10 36.7 C 78 18 105/63 91 Room Air 02/24/23 11:58 36.8 C 90 18 117/79 95 Room Air 02/24/23 07:00 81 02/24/23 08:00 Nasal Cannula 02/24/23 07:47 36.8 C 81 16 136/60 98 Nasal Cannula 02/24/23 03:49 36.8 C 89 18 127/70 95 Nasal Cannula O2 Flow Rate 02/24/23 15:10 02/24/23 11:58 02/24/23 07:00 02/24/23 08:00 2 02/24/23 07:47 5 02/24/23 03:49 4 Medications Administered Current Inpatient Medications Acetaminophen (Acetaminophen 325 Mg Tab) 650 mg PO Q4H PRN PRN Reason: Pain or Fever Stop: 03/17/23 18:14 Albuterol (Albuterol Hfa 8 Gm Inhaler) 2 puffs INH Q4R PRN PRN Reason: Dyspnea Stop: 03/17/23 18:14 Last Admin: 02/21/23 07:14 Dose: 2 puffs Albuterol (Albut/Ipratrop 3mg/0.5mg Neb 3 Ml Vial) 3 ml INH Q6R PRN; Protocol PRN Reason: Shortness Of Breath Or Wheezing Stop: 03/17/23 18:14 Last Admin: 02/23/23 11:47 Dose: 3 ml Aspirin (Aspirin 81 Mg Ectab) 81 mg PO QAM [facility] Stop: 03/20/23 08:59 Last Admin: 02/24/23 08:54 Dose: 81 mg Atorvastatin Calcium (Atorvastatin 40 Mg Tab) 80 mg PO 1300 [facility] Stop: 03/18/23 12:59 Last Admin: 02/24/23 12:15 Dose: 80 mg Benzonatate (Benzonatate 100 Mg Capsule) 100 mg PO TID PRN PRN Reason: cough Stop: 03/17/23 18:14 Last Admin: 02/23/23 04:07 Dose: 100 mg Buprenorphine HCl (Buprenorphine Hcl 8 Mg Subl) 8 mg SL TID [facility] Stop: 03/17/23 20:59 Last Admin: 02/24/23 14:18 Dose: 8 mg Cyclobenzaprine HCl (Cyclobenzaprine Hcl 10 Mg Tab) 10 mg PO BID PRN PRN Reason: Muscle Spasm Stop: 03/17/23 18:14 Last Admin: 02/24/23 14:18 Dose: 10 mg Dextrose (Dextrose 50% 50 Ml Syringe) 25 - 50 ml IV UD PRN; Protocol PRN Reason: Hypoglycemia Protocol Stop: 03/17/23 18:14 Last Admin: 02/16/23 07:43 Dose: 50 ml Diclofenac Sodium (Diclofenac Sod 1% Gel 100 Gm Tube) 2 gm EXT BID [facility]; Protocol Stop: 03/17/23 20:59 Last Admin: 02/24/23 08:55 Dose: 2 gm Docusate Sodium (Docusate Sodium 100 Mg Cap) 100 mg PO BID [facility] Stop: 03/17/23 20:59 Last Admin: 02/24/23 08:56 Dose: 100 mg Duloxetine HCl (Duloxetine Hcl 60 Mg Cap) 60 mg PO DAILY [facility] Stop: 03/18/23 08:59 Last Admin: 02/24/23 08:55 Dose: 60 mg Finasteride (Finasteride 5 Mg Tab) 5 mg PO QAM [facility] Stop: 03/18/23 08:59 Last Admin: 02/24/23 08:55 Dose: 5 mg Fluticasone Propionate (Fluticasone Propionate Na Spr 16 Gm Btl) 2 sprays NA DAILY [facility] Stop: 03/18/23 08:59 Last Admin: 02/24/23 08:57 Dose: 2 sprays Folic Acid (Folic Acid 1 Mg Tab) 1 mg PO QAM [facility] Stop: 03/18/23 08:59 Last Admin: 02/24/23 08:55 Dose: 1 mg Furosemide (Furosemide 40 Mg/4 Ml Vial) 40 mg IV BID [facility] Stop: 03/26/23 20:59 Gabapentin (Gabapentin 800 Mg Tab) 800 mg PO TID [facility] Stop: 03/17/23 20:59 Last Admin: 02/24/23 14:18 Dose: 800 mg Glucagon (Glucagon For Inj 1 Mg Vial) 1 mg SQ UD PRN; Protocol PRN Reason: Hypoglycemia Protocol Stop: 03/17/23 18:14 Glucose (Glucose 10 Tab/Tube) 4 - 8 tab PO UD PRN; Protocol PRN Reason: Hypoglycemia Treatment Stop: 03/17/23 18:14 Glucose (Glucose 40% Gel 15 Gm Tube) 15 - 30 gm PO UD PRN; Protocol PRN Reason: Hypoglycemia Protocol Stop: 03/17/23 18:14 Guaifenesin (Guaifenesin Sugar Free 100 Mg/5 Ml Udc) 100 mg PO Q6H PRN PRN Reason: Cough Stop: 03/19/23 10:12 Guaifenesin (Guaifenesin 600 Mg Tabcr) 600 mg PO Q12 [facility] Stop: 03/20/23 09:49 Last Admin: 02/24/23 08:56 Dose: 600 mg Hydroxyzine HCl (Hydroxyzine Hcl 25 Mg Tab) 25 mg PO QID PRN PRN Reason: Anxiety Stop: 03/17/23 18:14 Acetaminophen (Ofirmev) 1,000 mg in 100 mls @ 400 mls/hr IV Q8H PRN PRN Reason: fever/pain Stop: 02/26/23 04:15 Last Infusion: 02/24/23 09:24 Dose: Infused Promethazine HCl 6.25 mg/ (Sodium Chloride) 50.25 mls @ 201 mls/hr IV Q6H PRN PRN Reason: Nausea And Vomiting Stop: 03/25/23 17:07 Insulin Aspart (Insulin Aspart Per Unit Charge) 0 units SC ACHS [facility] Stop: 03/17/23 20:59 Last Admin: 02/24/23 12:15 Dose: 10 units Insulin Glargine (Lantus Per Unit Charge) 20 units SC DAILY [facility] Stop: 03/21/23 08:59 Last Admin: 02/24/23 08:53 Dose: 20 units Insulin Glargine (Lantus Per Unit Charge) 20 units SC HS [facility] Stop: 03/26/23 20:59 Isosorbide Dinitrate (Isosorbide Dinitrate 20 Mg Tab) 30 mg PO DAILY [facility] Stop: 03/18/23 08:59 Last Admin: 02/24/23 08:54 Dose: 30 mg Lorazepam (Lorazepam 0.5 Mg Tab) 0.25 mg PO Q8H PRN PRN Reason: Anxiety Stop: 03/17/23 21:02 Last Admin: 02/23/23 21:08 Dose: 0.25 mg Magnesium Oxide (Magnesium Oxide 400 Mg Tab) 400 mg PO DAILY [facility] Stop: 03/18/23 08:59 Last Admin: 02/24/23 08:55 Dose: 400 mg Menthol (Cough Drop (Sugar Free) Fernie 24 Fernie/1 Box) 1 fernie BUCCAL UD PRN PRN Reason: Sore Throat Stop: 03/18/23 22:19 Last Admin: 02/20/23 03:01 Dose: 1 fernie Metoprolol Succinate (Metoprolol Succ 25mg Ext Rel Tab) 75 mg PO BID [facility] Stop: 03/17/23 20:59 Last Admin: 02/24/23 08:55 Dose: 75 mg Miscellaneous (Carbohydrates For Hypoglycemia ) 15 - 30 gm PO UD PRN PRN Reason: Hypoglycemia Protocol Stop: 03/17/23 18:14 Miscellaneous (Remove Nicoderm Patch) 1 each N/A DAILY@0859 [facility] Stop: 03/18/23 08:58 Last Admin: 02/24/23 08:53 Dose: 1 each Miscellaneous Information (Pharmacy Glycemic Mgmt Consult) 1 each N/A UD PRN PRN Reason: Consult Stop: 03/17/23 18:14 Nicotine (Nicotine 21 Mg/24 Hr Tdsy) 21 mg TD DAILY [facility] Stop: 03/17/23 23:14 Last Admin: 02/24/23 08:57 Dose: 21 mg Nitroglycerin (Nitroglycerin Sl 0.4 Mg/Tab Tab) 0.4 mg SL UD PRN PRN Reason: CHEST PAIN Stop: 03/17/23 18:14 Last Admin: 02/23/23 11:42 Dose: 0.4 mg Nystatin (Nystatin Powder 15gm Btl) 1 appln EXT TID PRN PRN Reason: Skin Irritation Stop: 03/17/23 18:14 Nystatin (Nystatin Powder 15gm Btl) 1 appln EXT BID [facility] Stop: 03/19/23 11:29 Last Admin: 02/24/23 08:57 Dose: 1 appln Pantoprazole Sodium (Pantoprazole 40 Mg Tab) 40 mg PO BID [facility] Stop: 03/19/23 20:59 Last Admin: 02/24/23 08:55 Dose: 40 mg Polyethylene Glycol (Polyethylene (Miralax) 17 Gm Pack) 17 gm PO QAM [facility] Stop: 03/18/23 08:59 Last Admin: 02/24/23 08:57 Dose: 17 gm Potassium Chloride (Potassium Chloride Crtab 20 Meq Tabcr) 20 meq PO BID [facility] Stop: 03/17/23 20:59 Last Admin: 02/24/23 08:56 Dose: 20 meq Sennosides (Senna 8.6 Mg Tab) 8.6 mg PO DAILY PRN PRN Reason: Constipation Stop: 03/17/23 18:14 Spironolactone ([facility] 25 Mg Tab) [facility] [place] Stop[facility] 03/18/23 08:59 Last Admin: 02/24/23 08:55 Dose: 25 mg Tamsulosin HCl (Tamsulosin Hcl 0.4 Mg Cap) [facility] [place] Stop: 03/18/23 08:59 Last Admin: 02/24/23 08:54 Dose: 0.8 mg Vitamin D (Cholecalciferol 5,000 Units 125 Mcg Tab) 5,000 units PO QAM [facility] Stop: 03/18/23 08:59 Last Admin: 02/24/23 08:57 Dose: 5,000 units Warfarin Sodium (Warfarin Sod 3 Mg Tab) 3 mg PO DAILY@1600 [facility] Stop: 03/25/23 15:59 Last Admin: 02/23/23 16:56 Dose: 3 mg
[2023-02-24] MEDS: WARFARIN SOD 3 MG TAB PO SCH (16:42)
[2023-02-24] MEDS: LORazepam 0.5 MG TAB PO PRN (20:33)
[2023-02-24] MEDS: BENZONATATE 100 MG CAPSULE PO PRN (20:33)
[2023-02-24] MEDS: FUROSEMIDE 40 MG/4 ML VIAL IV SCH (20:39)
[2023-02-24] MEDS ORDERED: LANTUS PER UNIT CHARGE SC SCH (21:00)
--- NOTE | 2023-02-25 05:48 | Electrocardiogram Report ---
Test Reason : Blood Pressure : / mmHG Vent. Rate : 080 BPM Atrial Rate : 080 BPM P-R Int : 164 ms QRS Dur : 108 ms QT Int : 438 ms P-R-T Axes : 090 047 078 degrees QTc Int : 505 ms Normal sinus rhythm Nonspecific ST and T wave abnormality Incomplete right bundle branch block Prolonged QT Abnormal ECG When compared with ECG of 15-FEB-2023 12:54, QT has lengthened Confirmed by Shaquille Canales ([id number]) on 02/25/2023 5:48:27 AM Referred By: REFERRED SELF Confirmed By:Shaquille Canales
[2023-02-25] MEDS: LORazepam 0.5 MG TAB PO PRN (08:09)
[2023-02-25] MEDS: buprenorphine HCL 8 MG SUBL SL SCH ×2 (08:09→13:46)
[2023-02-25] MEDS: CYCLOBENZAPRINE HCL 10 MG TAB PO PRN (08:09)
[2023-02-25] MEDS: LANTUS PER UNIT CHARGE SC SCH (08:52)
[2023-02-25] MEDS: ACETAMINOPHEN 1,000 MG/100 ML VIAL IV PRN (08:53)
[2023-02-25] MEDS: INSULIN ASPART PER UNIT CHARGE SC SCH ×2 (08:53→12:03)
[2023-02-25] MEDS: FLUTICASONE PROPIONATE NA SPR 16 GM BTL SCH (08:54)
[2023-02-25] MEDS: NICOTINE 21 MG/24 HR TDSY TD SCH (08:54)
[2023-02-25] MEDS: NYSTATIN POWDER 15GM BTL EXT SCH (08:54)
[2023-02-25] MEDS: DICLOFENAC SOD 1% GEL 100 GM TUBE EXT SCH (08:54)
[2023-02-25] MEDS: guaiFENesin 600 MG TABCR PO SCH (08:55)
[2023-02-25] MEDS: FUROSEMIDE 40 MG/4 ML VIAL IV SCH (08:55)
[2023-02-25] MEDS: DOCUSATE SODIUM 100 MG CAP PO SCH (08:56)
[2023-02-25] MEDS: GABAPENTIN 800 MG TAB PO SCH ×2 (08:56→13:46)
[2023-02-25] MEDS: PANTOprazole 40 MG TAB PO SCH (08:56)
[2023-02-25] MEDS: POTASSIUM CHLORIDE CRTAB 20 MEQ TABCR PO SCH (08:56)
[2023-02-25] MEDS: ASPIRIN 81 MG ECTAB PO SCH (08:57)
[2023-02-25] MEDS: SPIRONOLACTONE 25 MG TAB PO SCH (08:57)
[2023-02-25] MEDS: POLYETHYLENE (MIRALAX) 17 GM PACK PO SCH (08:57)
[2023-02-25] MEDS: FINASTERIDE 5 MG TAB PO SCH (08:57)
[2023-02-25] MEDS: ISOSORBIDE DINITRATE 20 MG TAB PO SCH (08:57)
[2023-02-25] MEDS: TAMSULOSIN HCL 0.4 MG CAP PO SCH (08:58)
[2023-02-25] MEDS: MAGNESIUM OXIDE 400 MG TAB PO SCH (08:58)
[2023-02-25] MEDS: CHOLECALCIFEROL 5,000 UNITS 125 MCG TAB PO SCH (08:58)
[2023-02-25] MEDS: FOLIC ACID 1 MG TAB PO SCH (08:58)
[2023-02-25] MEDS: METOPROLOL SUCC 25MG EXT REL TAB PO SCH (08:59)
[2023-02-25] MEDS: DULoxetine HCL 60 MG CAP PO SCH (08:59)
[2023-02-25 09:13] LABS: Hematocrit (blood only) 37.9 % (42.0-52.0); Hemoglobin 11.9 g/dl (14.0-18.0)
[2023-02-25 10:30] LABS: Calcium 9.4 mg/dl (8.6-10.3)
[2023-02-25 10:35] LABS: BUN Creatinine Ratio 16.5 (10-20); Creatinine Clr Calc Pharmacy 165.6 ml/min; Est GFR (African American) 103.6 ml/min; Est GFR (Non-African American) 89.4 ml/min
[2023-02-25] MEDS: NITROGLYCERIN 2% OINTMENT 30GM TUBE EXT ONE ×2 (11:37→16:01)
[2023-02-25] MEDS: ATORVASTATIN 40 MG TAB PO SCH (12:04)
--- NOTE | 2023-02-25 13:45 | Pharmacy Report ---
Pharmacy Glycemic Short Note 2 - Date of Service February 25, 2023 - Glycemic Short BSG Results (Last 24 hours): 02/24/23 02/24/23 02/25/23 15:19 20:12 07:31 Glucose POC Glucose 195 H 157 H 245 H 02/25/23 02/25/23 08:25 11:38 Glucose 234 H POC Glucose 193 H OUTPATIENT ANTIDIABETIC REGIMEN: * Lantus 50 units SC HS * Glipizide 10 mg PO BIDM HbA1c: 8.2% (01/14/23) ASSESSMENT: 02/25 * Patient's BSGs yesterday were [phone] mg/dL. Patient received 70 units of insulin (40 units of basal and 30 units of bolus). * Today's BSGs are 245-193 mg/dL. * Yesterday, Lantus increased to 40 units (20 units BID). During previous hospitalizations, patient was stable on this regimen. Will do overnight checks to establish need for more insulin. * Tightened CR slightly. 02/23/23: * Patient received total of 65 units of insulin yesterday, of which 30 units were basal insulin * Fasting BSG 176 mg/dL - will increase to 35 units of basal * No change to CF/CR 02/19/23: * BSGs have been well-controlled over past several days, however fasting BSG is elevated * Had been being conservative with Lantus given prior hypoglycemia in AM, but given elevated fasting BSGs, will increase today * Patient awaiting placement 02/16/23: * AISLINN is a 52 year old male well known to pharmacy glycemic service * Majority of inpatient glycemic data has been while patient was on IV steroids, no steroids at this time * Presented to ED with rectal bleeding - on chronic warfarin * Originally NPO, now ordered full liquid diet * Unfortunately, patient hypoglycemic this morning at 59 mg/dL after receiving 50 units of basal insulin last evening PLAN FOR INPATIENT GLYCEMIC CONTROL: * Hold outpatient oral diabetes medications * Basal insulin - * Lantus 20 units SQ BID * Bolus insulin * NovoLog per scale ACHS or Q6hrs while NPO * Goal Range: Low 110 mg/dL - High 140 mg/dL * Correction Factor: 20 mg/dL/unit * Nutritional / Prandial insulin per carb ratio of 1 unit per 6 grams CHO consumed
--- NOTE | 2023-02-25 13:55 | Hospitalist Progress Note ---
Date of Service February 25, 2023 Assessment & Plan (1) Bright red rectal bleeding: Plan: Rectal Bleed: Likely secondary to hemorrhoidal bleed In setting of Aspirin, Coumadin use INR:1.9 on presentation Stool guaiac Positive in ED Received Vit K Monitor H&H-hemoglobin remains stable since admission which is 12.0 as of 02/24/2023 Held Aspirin, Coumadin Initially-restarted Prednisone discontinued Avoids NASIDs Continue Protonix Appreciate GI Input and recommendation-colonoscopy as an outpatient No more rectal bleed and hemoglobin remains stable Atypical Chest Pain Troponin Negative EKG: Nonspecific ST-T changes Appreciate cardiology input and recommendation Musculoskeletal chest pain and is noncardiac Has had chest pain again today and apparently EKG was unremarkable Troponin is still pending Nitropaste 1 inch was applied and his MB will be increased before going to [facility] Physical deconditioning Secondary to comorbidities PT OT recommends rehab Continue PT OT: Recommends Rehab Case management to help with discharge planning Has been accepted to [facility] and will be going there around 4 PM today H/O Recurrent UTI: Likely colonization Urine culture grew Klebsiella Continue IV Rocephin: Discontinued after receiving 3 doses Lloyd catheter changed Appreciate ID input: Recommends to discontinue Lloyd catheter Patient patient prefers to continue Lloyd catheter despite explaining the risks and complications. He prefers to follow-up with urology as outpatient and consider to get Lloyd catheter removed as outpatient Offered urology evaluation while inpatient, currently patient seemed to be not interested as had recurrent retention issues in the past No evidence of UTI at this time-catheter changed recently COPD Chronic respiratory failure with hypoxia CXR:Cardiomegaly without acute process. No signs of exacerbation Continue home inhalers Titrate oxygen to keep saturations 88 to 92% Nebs as needed Chest x-ray today showed no acute process Wheezing which would be persisting-no need to restart it steroid H/O PE on chronic anticoagulation with Warfarin INR 1.6>1.0>1.2>1.5>2.0>2.6 Continue Coumadin Adjust Coumadin dose as needed INR remains therapeutic and will be continued Chronic HFpEF Continue Lasix Monitor volume status, daily weight Monitor volume status Will give intravenous Lasix for further improvement of crackles in the chest A total of 24,000 mL of fluid was taken out during this hospitalization Lasix will be continued as his outpatient dose DM II Continue Insulin per protocol Monitor BGs Chronic opioid use Medical noncompliance Will be given 1 dose of intravenous Dilaudid during moving to [facility] DVT Px: Coumadin CODE STATUS Full Code Disposition Will be transferred to [facility] this afternoon Admission and Anticipated Discharge Date Admission Date: February 15, 2023 Subjective 02/24/2023 The patient was seen and examined in medical telemetry unit He has been stable and denies any significant symptoms No more hematochezia and hemoglobin remains stable Minimal wheezing on examination 02/25/2023 The patient was seen and examined in medical telemetry unit He complains some chest pain this morning and apparently EKG was normal and troponin is still pending He was given Nitropaste and the pain seems eased up He was seen by the balance wheel facer day before yesterday and was told that the chest pain is musculoskeletal has not from the heart He will be discharged to rehab this afternoon Review of Systems Review of Systems: All systems reviewed and are unremarkable except as mentioned below Physical Exam Physical Exam: Lying in bed comfortably Constitutional: well developed, well nourished and + morbidly obese; not ill appearing Eyes: PERRL, conjunctivae normal, anicteric sclerae ENMT: external ear and nose normal, oropharynx normal Neck: trachea midline, no thyromegaly Respiratory: no respiratory distress Auscultation: + diminished lung sounds, + crackles (Minimal crackles at the bases) and + wheezes (Minimal wheezing as usual) Cardiovascular: Rate/Rhythm: regular rate and regular rhythm; not tachycardic Heart Sounds: normal S1 and normal S2; no murmur Extremities: + edema (Trace edema bilaterally with chronic skin changes) Gastrointestinal (Abdomen): Inspection/Auscultation: + abdomen distended and normal bowel sounds Percussion/Palpation: abdomen soft; abdomen nontender Musculoskeletal: No acute arthritis involving any joint Neurologic: normal touch/pain/proprioception and moves all extremities; no focal motor deficits Psychiatric: A+Ox3, euthymic affect Lymphatic: no cervical or axillary lymphadenopathy Results & Data Results & Data Vital Signs (Past 12 Hours) Vital Signs Temp Pulse Pulse Resp BP BP Pulse Ox 02/25/23 11:19 36.9 C 84 20 110/68 93 02/25/23 08:00 02/25/23 07:59 36.7 C 75 18 128/74 98 02/25/23 07:25 80 02/25/23 04:00 36.7 C 79 20 116/70 98 O2 Del Method O2 Flow Rate 02/25/23 11:19 Room Air 02/25/23 08:00 Nasal Cannula 2 02/25/23 07:59 Nasal Cannula 4 02/25/23 07:25 02/25/23 04:00 Nasal Cannula 4 Laboratory Results Short CBC 02/25/23 Range/Units 08:25 Hgb 11.9 L (14.0-18.0) g/dl Hct 37.9 L (42.0-52.0) % BMP 02/25/23 08:25 Sodium 137 Potassium 4.0 Chloride 99 Carbon Dioxide 35 H BUN 16 Creatinine 0.97 Glucose 234 H Calcium 9.4 Medications Administered Current Inpatient Medications Acetaminophen (Acetaminophen 325 Mg Tab) 650 mg PO Q4H PRN PRN Reason: Pain or Fever Stop: 03/17/23 18:14 Albuterol (Albuterol Hfa 8 Gm Inhaler) 2 puffs INH Q4R PRN PRN Reason: Dyspnea Stop: 03/17/23 18:14 Last Admin: 02/21/23 07:14 Dose: 2 puffs Albuterol (Albut/Ipratrop 3mg/0.5mg Neb 3 Ml Vial) 3 ml INH Q6R PRN; Protocol PRN Reason: Shortness Of Breath Or Wheezing Stop: 03/17/23 18:14 Last Admin: 02/23/23 11:47 Dose: 3 ml Aspirin (Aspirin 81 Mg Ectab) 81 mg PO QAM [facility] Stop: 03/20/23 08:59 Last Admin: 02/25/23 08:57 Dose: 81 mg Atorvastatin Calcium (Atorvastatin 40 Mg Tab) 80 mg PO 1300 [facility] Stop: 03/18/23 12:59 Last Admin: 02/25/23 12:04 Dose: 80 mg Benzonatate (Benzonatate 100 Mg Capsule) 100 mg PO TID PRN PRN Reason: cough Stop: 03/17/23 18:14 Last Admin: 02/24/23 20:33 Dose: 100 mg Buprenorphine HCl (Buprenorphine Hcl 8 Mg Subl) 8 mg SL TID [facility] Stop: 03/17/23 20:59 Last Admin: 02/25/23 13:46 Dose: 8 mg Cyclobenzaprine HCl (Cyclobenzaprine Hcl 10 Mg Tab) 10 mg PO BID PRN PRN Reason: Muscle Spasm Stop: 03/17/23 18:14 Last Admin: 02/25/23 08:09 Dose: 10 mg Dextrose (Dextrose 50% 50 Ml Syringe) 25 - 50 ml IV UD PRN; Protocol PRN Reason: Hypoglycemia Protocol Stop: 03/17/23 18:14 Last Admin: 02/16/23 07:43 Dose: 50 ml Diclofenac Sodium (Diclofenac Sod 1% Gel 100 Gm Tube) 2 gm EXT BID EMPERATRIZ; Protocol Stop: 03/17/23 20:59 Last Admin: 02/25/23 08:54 Dose: 2 gm Docusate Sodium (Docusate Sodium 100 Mg Cap) 100 mg PO BID [facility] Stop: 03/17/23 20:59 Last Admin: 02/25/23 08:56 Dose: 100 mg Duloxetine HCl (Duloxetine Hcl 60 Mg Cap) 60 mg PO DAILY [facility] Stop: 03/18/23 08:59 Last Admin: 02/25/23 08:59 Dose: 60 mg Finasteride (Finasteride 5 Mg Tab) 5 mg PO QAM [facility] Stop: 03/18/23 08:59 Last Admin: 02/25/23 08:57 Dose: 5 mg Fluticasone Propionate (Fluticasone Propionate Na Spr 16 Gm Btl) 2 sprays NA DAILY [facility] Stop: 03/18/23 08:59 Last Admin: 02/25/23 08:54 Dose: 2 sprays Folic Acid (Folic Acid 1 Mg Tab) 1 mg PO QAM [facility] Stop: 03/18/23 08:59 Last Admin: 02/25/23 08:58 Dose: 1 mg Furosemide (Furosemide 40 Mg/4 Ml Vial) 40 mg IV BID [facility] Stop: 03/26/23 20:59 Last Admin: 02/25/23 08:55 Dose: 40 mg Gabapentin (Gabapentin 800 Mg Tab) 800 mg PO TID [facility] Stop: 03/17/23 20:59 Last Admin: 02/25/23 13:46 Dose: 800 mg Glucagon (Glucagon For Inj 1 Mg Vial) 1 mg SQ UD PRN; Protocol PRN Reason: Hypoglycemia Protocol Stop: 03/17/23 18:14 Glucose (Glucose 10 Tab/Tube) 4 - 8 tab PO UD PRN; Protocol PRN Reason: Hypoglycemia Treatment Stop: 03/17/23 18:14 Glucose (Glucose 40% Gel 15 Gm Tube) 15 - 30 gm PO UD PRN; Protocol PRN Reason: Hypoglycemia Protocol Stop: 03/17/23 18:14 Guaifenesin (Guaifenesin Sugar Free 100 Mg/5 Ml Udc) 100 mg PO Q6H PRN PRN Reason: Cough Stop: 03/19/23 10:12 Guaifenesin (Guaifenesin 600 Mg Tabcr) 600 mg PO Q12 EMPERATRIZ Stop: 03/20/23 09:49 Last Admin: 02/25/23 08:55 Dose: 600 mg Hydroxyzine HCl (Hydroxyzine Hcl 25 Mg Tab) 25 mg PO QID PRN PRN Reason: Anxiety Stop: 03/17/23 18:14 Acetaminophen (Ofirmev) 1,000 mg in 100 mls @ 400 mls/hr IV Q8H PRN PRN Reason: fever/pain Stop: 02/26/23 04:15 Last Infusion: 02/25/23 09:14 Dose: Infused Promethazine HCl 6.25 mg/ (Sodium Chloride) 50.25 mls @ 201 mls/hr IV Q6H PRN PRN Reason: Nausea And Vomiting Stop: 03/25/23 17:07 Insulin Aspart (Insulin Aspart Per Unit Charge) 0 units SC ACHS [facility] Stop: 03/17/23 20:59 Last Admin: 02/25/23 12:03 Dose: 18 units Insulin Aspart (Insulin Aspart Per Unit Charge) 0 units SC 0000,[id number] [facility] Stop: 02/26/23 04:01 Insulin Glargine (Lantus Per Unit Charge) 20 units SC DAILY [facility] Stop: 03/21/23 08:59 Last Admin: 02/25/23 08:52 Dose: 20 units Insulin Glargine (Lantus Per Unit Charge) 20 units SC HS [facility] Stop: 03/26/23 20:59 Last Admin: 02/24/23 20:34 Dose: 20 units Isosorbide Dinitrate (Isosorbide Dinitrate 20 Mg Tab) 30 mg PO DAILY [facility] Stop: 03/18/23 08:59 Last Admin: 02/25/23 08:57 Dose: 30 mg Lorazepam (Lorazepam 0.5 Mg Tab) 0.25 mg PO Q8H PRN PRN Reason: Anxiety Stop: 03/17/23 21:02 Last Admin: 02/25/23 08:09 Dose: 0.25 mg Magnesium Oxide (Magnesium Oxide 400 Mg Tab) 400 mg PO DAILY [facility] Stop: 03/18/23 08:59 Last Admin: 02/25/23 08:58 Dose: 400 mg Menthol (Cough Drop (Sugar Free) Fernie 24 Fernie/1 Box) 1 fernie BUCCAL UD PRN PRN Reason: Sore Throat Stop: 03/18/23 22:19 Last Admin: 02/20/23 03:01 Dose: 1 fernie Metoprolol Succinate (Metoprolol Succ 25mg Ext Rel Tab) 75 mg PO BID [facility] Stop: 03/17/23 20:59 Last Admin: 02/25/23 08:59 Dose: 75 mg Miscellaneous (Carbohydrates For Hypoglycemia ) 15 - 30 gm PO UD PRN PRN Reason: Hypoglycemia Protocol Stop: 03/17/23 18:14 Miscellaneous (Remove Nicoderm Patch) 1 each N/A DAILY@0859 [facility] Stop: 03/18/23 08:58 Last Admin: 02/25/23 08:53 Dose: 1 each Miscellaneous Information (Pharmacy Glycemic Mgmt Consult) 1 each N/A UD PRN PRN Reason: Consult Stop: 03/17/23 18:14 Nicotine (Nicotine 21 Mg/24 Hr Tdsy) 21 mg TD DAILY [facility] Stop: 03/17/23 23:14 Last Admin: 02/25/23 08:54 Dose: 21 mg Nitroglycerin (Nitroglycerin Sl 0.4 Mg/Tab Tab) 0.4 mg SL UD PRN PRN Reason: CHEST PAIN Stop: 03/17/23 18:14 Last Admin: 02/23/23 11:42 Dose: 0.4 mg Nystatin (Nystatin Powder 15gm Btl) 1 appln EXT TID PRN PRN Reason: Skin Irritation Stop: 03/17/23 18:14 Nystatin (Nystatin Powder 15gm Btl) 1 appln EXT BID [facility] Stop: 03/19/23 11:29 Last Admin: 02/25/23 08:54 Dose: 1 appln Pantoprazole Sodium (Pantoprazole 40 Mg Tab) 40 mg PO BID [facility] Stop: 03/19/23 20:59 Last Admin: 02/25/23 08:56 Dose: 40 mg Polyethylene Glycol (Polyethylene (Miralax) 17 Gm Pack) 17 gm PO QAM [facility] Stop: 03/18/23 08:59 Last Admin: 02/25/23 08:57 Dose: 17 gm Potassium Chloride (Potassium Chloride Crtab 20 Meq Tabcr) 20 meq PO BID [facility] Stop: 03/17/23 20:59 Last Admin: 02/25/23 08:56 Dose: 20 meq Sennosides (Senna 8.6 Mg Tab) 8.6 mg PO DAILY PRN PRN Reason: Constipation Stop: 03/17/23 18:14 Spironolactone (Spironolactone 25 Mg Tab) 25 mg PO [facility] Stop: 03/18/23 08:59 Last Admin: 02/25/23 08:57 Dose: 25 mg Tamsulosin HCl (Tamsulosin Hcl 0.4 Mg Cap) 0.8 mg PO [facility] Stop: 03/18/23 08:59 Last Admin: 02/25/23 08:58 Dose: 0.8 mg Vitamin D (Cholecalciferol 5,000 Units 125 Mcg Tab) [facility] [place]: 03/18/23 08:59 Last Admin: 02/25/23 08:58 Dose: 5,000 units Warfarin Sodium (Warfarin Sod 3 Mg Tab) 3 mg PO DAILY@1600 [facility] Stop: 03/25/23 15:59 Last Admin: 02/24/23 16:42 Dose: 3 mg
[2023-02-25] MEDS: HYDROmorphone INJ 1 MG/ML SYRINGE IV ONE ×2 (15:20→16:04)
[2023-02-25] MEDS: WARFARIN SOD 3 MG TAB PO SCH (15:58)
--- NOTE | 2023-02-25 16:38 | Discharge Summary ---
Date of Service February 25, 2023 Admission HPI Per Admitting Provider Patient is a 52-year-old female with history of COPD, morbid obesity, diabetes mellitus type 2, chronic systolic heart failure, hypertension, hyperlipidemia, H/O PE on chronic anticoagulation with warfarin, mood disorder, medication noncompliance, current active smoker, noncompliance, chronic opioid abuse, chronic indwelling Lloyd catheter and other medical problems presents with history of bright red blood per rectum. Patient states that he first noticed to have rectal bleed yesterday after having a bowel movement after which his helped him wipe and noticed bright red blood. He also states having another episode today. His last Coumadin dose was yesterday. He denies any other rectal bleeding in the past. Also denies any history of melena, NSAID use, diarrhea, nausea, vomiting, abdominal pain, constipation. Has chronic dyspnea on exertion and cough which is unchanged. States feeling tired today. Denies any hematuria, epistaxis, hemoptysis. Admission Exam Per Admitting Provider Vitals signs as noted above General Appearance:Morbidly Obese, no apparent distress Head: normocephalic, Atraumatic Eyes: normal inspection, EOMI Neck: supple, Trachea midline Respiratory/Chest: Decreased coarse breath sounds, No accessory muscle use Cardiovascular: S1, S2, No murmur Abdomen/GI:Soft, Non tender, normal Bowel sounds Extremities/Musculoskeletal:normal inspection, + B/L Pedal edema, chronic venous stasis changes Neurologic/Psych:AAOX3, grossly no focal neurological deficits Skin: normal color, warm Principal Diagnosis Rectal bleed-resolved, musculoskeletal chest pain, physical deconditioning, stable COPD, pulmonary embolism on Coumadin, chronic age HFpEF, chronic pain on Suboxone Discharge Exam Lying in bed comfortably Constitutional well developed, well nourished and + morbidly obese; not ill appearing Eyes PERRL, conjunctivae normal, anicteric sclerae ENMT external ear and nose normal, oropharynx normal Neck trachea midline, no thyromegaly Respiratory no respiratory distress Auscultation: + diminished lung sounds, + crackles (Minimal crackles at the bases) and + wheezes (Minimal wheezing as usual) Cardiovascular Rate/Rhythm: regular rate and regular rhythm; not tachycardic Heart Sounds: normal S1 and normal S2; no murmur Extremities: + edema (Trace edema bilaterally with chronic skin changes) Gastrointestinal (Abdomen) Inspection/Auscultation: + abdomen distended and normal bowel sounds Percussion/Palpation: abdomen soft; abdomen nontender Neurologic normal touch/pain/proprioception and moves all extremities; no focal motor deficits Psychiatric A+Ox3, euthymic affect Lymphatic no cervical or axillary lymphadenopathy Discharge Data Allergies Allergy/AdvReac Type Severity Reaction Status Date / Time cefepime Allergy Intermediate rash Verified 01/29/23 07:44 daptomycin Allergy Intermediate rash Verified 12/17/22 18:20 fentanyl Allergy Intermediate RASH/HIVES/SKIN Verified 12/17/22 18:20 REDNESS acetaminophen [From Tylenol] AdvReac Intermediate IRRITATES Verified 12/17/22 18:20 & UPSET STOMACH ibuprofen AdvReac Intermediate Nausea Verified 12/17/22 18:20 naloxone AdvReac Intermediate extremely Verified 01/29/23 07:15 sick valproic acid AdvReac Intermediate PANCREATITS Verified 12/17/22 18:20 Consultations 02/15/23 15:49 ED Decision to Admit Stat 02/15/23 18:15 Consult Gastroenterology Routine 02/17/23 10:16 Consult Infectious Diseases Routine 02/23/23 12:08 Consult Cardiology Routine Hospital Course (1) Bright red rectal bleeding: Rectal Bleed: Likely secondary to hemorrhoidal bleed In setting of Aspirin, Coumadin use INR:1.9 on presentation Stool guaiac Positive in ED Received Vit K Monitor H&H-hemoglobin remains stable since admission which is 12.0 as of 02/24/2023 Held Aspirin, Coumadin Initially-restarted Prednisone discontinued Avoids NASIDs Continue Protonix Appreciate GI Input and recommendation-colonoscopy as an outpatient No more rectal bleed and hemoglobin remains stable Atypical Chest Pain Troponin Negative EKG: Nonspecific ST-T changes Appreciate cardiology input and recommendation Musculoskeletal chest pain and is noncardiac Has had chest pain again today and apparently EKG was unremarkable Troponin is still pending Nitropaste 1 inch was applied and his MB will be increased before going to [facility] Physical deconditioning Secondary to comorbidities PT OT recommends rehab Continue PT OT: Recommends Rehab Case management to help with discharge planning Has been accepted [facility] and will be going there around 4 PM today H/O Recurrent UTI: Likely colonization Urine culture grew Klebsiella Continue IV Rocephin: Discontinued after receiving 3 doses Lloyd catheter changed Appreciate ID input: Recommends to discontinue Lloyd catheter Patient patient prefers to continue Lloyd catheter despite explaining the risks and complications. He prefers to follow-up with urology as outpatient and consider to get Lloyd catheter removed as outpatient Offered urology evaluation while inpatient, currently patient seemed to be not interested as had recurrent retention issues in the past No evidence of UTI at this time-catheter changed recently COPD Chronic respiratory failure with hypoxia CXR:Cardiomegaly without acute process. No signs of exacerbation Continue home inhalers Titrate oxygen to keep saturations 88 to 92% Nebs as needed Chest x-ray today showed no acute process Wheezing which would be persisting-no need to restart it steroid H/O PE on chronic anticoagulation with Warfarin INR 1.6>1.0>1.2>1.5>2.0>2.6 Continue Coumadin Adjust Coumadin dose as needed INR remains therapeutic and will be continued Chronic HFpEF Continue Lasix Monitor volume status, daily weight Monitor volume status Will give intravenous Lasix for further improvement of crackles in the chest A total of 24,000 mL of fluid was taken out during this hospitalization Lasix will be continued as his outpatient dose DM II Continue Insulin per protocol Monitor BGs Chronic opioid use Medical noncompliance Will be given 1 dose of intravenous Dilaudid during moving to [facility] DVT Px: Coumadin CODE STATUS Full Code Disposition Will be transferred to [facility] this afternoon Total Time Total Time Spent Total Time Spent (In Minutes): 45 minutes Discharge Plan Discharge Items Patient Disposition: Transfer Inpatient Rehab Fac Reason For Visit: RECTAL BLEED Discharge Diagnosis: Rectal bleed-resolved, musculoskeletal chest pain, physical deconditioning, stable COPD, pulmonary embolism on Coumadin, chronic age HFpEF, chronic pain on Suboxone Activity: As commented below Activity Comment: Will need to continue PT and OT Non-emergency contact: Primary Care Provider Call non-emergency contact if: you have any medication questions and your symptoms worsen Follow-up/Referrals: Roberto Askew MD [Primary Care Provider] - (Please make an appointment with your PCP within 7 days following discharge from the facility) Diet: Carb Consistent or DM2 and Heart Healthy Addtl Attending Provider Instructions: Please take precautions to avoid fall Take your medications as advised Try to participate in physical therapy to improve mobility Stand-Alone Forms: My [facility] Skilled Items Patient informed of condition?: Yes DNR: No Discharge Level of Care: Acute rehab Communicable Disease: No Discharge Prognosis: Stable Lines: None Urinary Catheter: Yes Medications and DC Order Prescriptions: New nicotine [Nicoderm CQ] 21 mg/24 hr Patch 24 Hour 21 mg transdermal DAILY Qty: 28 0RF insulin glargine [Lantus U-100 Insulin] 100 unit/mL Solution 20 unit SC BID Qty: 10 0RF insulin aspart U-100 [Novolog FlexPen U-100 Insulin] 100 unit/mL (3 mL) insulin pen 10 unit subcut TID Qty: 15 0RF Rx Instructions: With Meals Continued promethazine 12.5 mg tablet 12.5 mg PO BID PRN (Reason: nausea and vomiting) Qty: 10 0RF tamsulosin [Flomax] 0.4 mg capsule 0.8 mg PO QAM Qty: 180 3RF polyethylene glycol 3350 [Miralax] 17 gram powder in packet 17 g PO QAM nitroglycerin [Nitrostat] 0.4 mg tablet, sublingual 0.4 mg Sublingual DIRECTED PRN (Reason: CHEST PAIN) Rx Instructions: PLACE ONE TABLET UNDER THE TONGUE EVERY 5 MINUTES FOR UP TO 3 DOSES OVER 15 MINUTES IF NEEDED FOR CHEST PAIN nystatin 100,000 unit/gram Powder 1 applic TOPICAL TID PRN (Reason: Skin Irritation) Rx Instructions: APPLY DIRECTED TO ABDOMINAL FOLDS cyclobenzaprine 10 mg Tablet 10 mg PO BID PRN (Reason: Muscle Spasm) ipratropium-albuterol 0.5 mg-3 mg(2.5 mg base)/3 mL Solution For Nebulization 3 ml INHALATION Q6H PRN (Reason: Shortness Of Breath Or Wheezing) docusate sodium 100 mg Capsule 100 mg PO BID duloxetine 60 mg capsule,delayed release(DR/EC) 60 mg PO DAILY famotidine 20 mg tablet 20 mg PO DAILY fluticasone propionate 50 mcg/actuation spray,suspension 2 spray Intranasal DAILY aspirin [Ecotrin Low Strength] 81 mg tablet,delayed release (DR/EC) 81 mg PO QAM finasteride 5 mg tablet 5 mg PO QAM metoprolol succinate 50 mg Tablet Extended Release 24 Hr 75 mg PO BID spironolactone 25 mg Tablet 25 mg PO QAM atorvastatin 80 mg tablet 80 mg PO QPM Rx Instructions: TAKE THIS MEDICATION EVERY AFTERNOON sennosides [senna] 8.6 mg Tablet 8.6 mg PO DAILY PRN (Reason: Constipation) folic acid 1 mg Tablet 1 mg PO QAM furosemide [Lasix] 40 mg tablet 40 mg PO BID albuterol sulfate 90 mcg/actuation Hfa Aerosol Inhaler 2 puff INHALATION Q4 PRN (Reason: Dyspnea) omeprazole 20 mg Capsule,Delayed Release(Dr/Ec) 20 mg PO DAILYBB gabapentin 800 mg tablet 800 mg PO TID buprenorphine HCl 8 mg tablet, sublingual 8 mg SUBLINGUAL TID Rx Instructions: Per Dr 1st glipizide 10 mg tablet 10 mg PO BID urea [Ureacin-20] 20 % Cream 1 applic TOPICAL BID magnesium oxide 400 mg (241.3 mg magnesium) tablet 400 mg PO DAILY ferrous sulfate 325 mg (65 mg iron) Tablet 325 mg PO QAM Rx Instructions: Take with breakfast hydroxyzine HCl 25 mg Tablet 25 mg PO QID PRN (Reason: Anxiety) ondansetron HCl 4 mg Tablet 4 mg PO Q8H PRN (Reason: NAUSEA/VOMITING) benzonatate 100 mg Capsule 100 mg PO TID PRN (Reason: cough) Qty: 10 0RF diclofenac sodium [Voltaren Arthritis Pain] 1 % Gel 2 g EXT BID Qty: 50 0RF dextromethorphan-guaifenesin 10-100 mg/5 mL Syrup 5 ml PO Q6H PRN (Reason: cough) Qty: 500 0RF potassium chloride 20 mEq tablet extended release 40 meq PO BID Qty: 60 0RF warfarin 5 mg tablet 2.5 mg PO TUTH Rx Instructions: . cholecalciferol (vitamin D3) 125 mcg (5,000 unit) Tablet 5,000 unit PO QAM Qty: 30 0RF Lactinex 1 million cell tablet,chewable 1 tab PO TID Qty: 30 0RF isosorbide dinitrate 30 mg tablet 30 mg PO DAILY warfarin 5 mg tablet 5 mg PO SUMOWEFRSA guaifenesin [Mucinex] 600 mg Tablet Extended Release 12hr 1,200 mg PO BID lorazepam 0.5 mg tablet 0.5 mg PO Q8 PRN (Reason: Anxiety) Qty: 6 0RF prednisone 5 mg tablet 5 mg PO UD Qty: 12 0RF Rx Instructions: Start taking prednisone 10 mg daily for 4 days, then take 5 mg daily for 4 days and stop. Discontinued codeine-guaifenesin 10-100 mg/5 mL liquid 5 ml PO TID PRN (Reason: cough) Qty: 120 0RF insulin glargine [Lantus Solostar U-100 Insulin] 100 unit/mL (3 mL) Insulin Pen 50 unit SC HS 30 Days Qty: 15 0RF Discharge Orders: Discharge Order (Routine); Ordered 02/25/23 Ordered By: Augustus Vasquez Admission Data Admit Date/Time: 02/15/23 16:12 Attending Provider: Augustus Vasquez Admit Provider: Dipesh Wright Primary Care Provider: Roberto Askew Other Providers: Dipesh Wright ; Clinton James ; Eduardo Chapman ; Sandra Mcdonald ; Yeni Howard ; Ramonita Conway ; Maribel Da Silva ; Byron Najera ; Obed David ; Chika Dickerson ; Dmitry Souza ; Massimo Crabtree ; Alissa Alex ; Delilah Rodriguez ; Jeannie Leigh ; Desiree Lopez ; Juan Holland ; Michael Pearson ; Pool Mathias ; Rocío Phelps ; Lakshmi Velez Jr ; [facility] ; Peterson Palafox ; Luis F Maciel ; Flaco Last I. ; Jin Olivier II ; Liliam Romero ; Owen Badillo ; Robert De Guzman ; Steve Almendarez ; Miguel Angel Lee Other Interventions: Discharge Summary Assessment (RN) Last Done: 02/25/23 15:48
[2023-02-26] MEDS ORDERED: INSULIN ASPART PER UNIT CHARGE SC SCH
== END 2023-02-25 16:26 | DRG 813 ==
LOC: ED 12:39 → SUATTDRO 16:12 → 2W 16:12

== ENCOUNTER 2023-04-07 20:31 | Inpatient (IN) ==
[2023-04-07] MEDS ORDERED: methylPREDNISolone 125 MG/2 ML VIAL IV STA (21:36)
[2023-04-07] MEDS ORDERED: ALBUTEROL 0.083% NEBU SOLN 3 ML VIAL NEB STA (21:36)
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
[2023-04-07 21:45] LABS: Basophils # (auto) 0.07 K/uL (0-0.2); Basophils % (auto) 0.7 %; Eosinophils # (auto) 0.44 K/uL (0-0.50); Eosinophils % (auto) 4.1 %; Hematocrit (blood only) 43.3 % (42.0-52.0); Hemoglobin 13.8 g/dl (14.0-18.0); Immature Granulocytes # (auto) 0.03 K/uL (0.01-0.20); Immature Granulocytes % (auto) 0.3 %; Lymphocytes # (auto) 2.36 K/uL (1.2-3.4); Lymphocytes % (auto) 21.9 %; Mean Corpuscular Hemoglobin 25.9 pg (25.0-34.0); Mean Corpuscular Hgb Conc 31.9 g/dL (32.0-36.0); Mean Corpuscular Volume 81.2 fL (80.0-100.0); Mean Platelet Volume 10.6 fL (9.4-12.4); Monocytes # (auto) 0.94 K/uL (0.11-0.59); Monocytes % (auto) 8.7 %; Neutrophils # (auto) 6.92 K/uL (1.40-6.50); Neutrophils % (auto) 64.3 %; Platelet Count 336 K/uL (130-400); RDW Coefficient of Variation 16.5 % (11.5-14.5); RDW Standard Deviation 47.6 fL (36.4-46.3); Red Blood Count 5.33 M/uL (4.70-6.10); White Blood Count 10.76 K/ul (4.8-10.8)
[2023-04-07 21:57] LABS: HCO3 VBG 50 mmol/L; Oxygen Saturation VBG < 60.0 %; PCO2 VBG 87 mmHg (38-50); PO2 VBG 17 mmHg; pH VBG 7.37 (7.36-7.41)
[2023-04-07 21:57] LABS: Appearance Urine Cloudy (Clear); Bacteria Urine Automated Negative (Negative); Bilirubin Urine Negative (Negative); Blood Urine 3+ (Negative); Color Urine Yellow; Epithelial Cell Urine Auto >30 /lpf (0-5); Glucose Urine UA Negative (Negative); Ketones Urine Negative (Negative); Leukocyte Esterase Urine 3+ (Negative); Nitrite Urine Negative (Negative); Protein Urine 1+ (Negative); RBC Urine Automated >30 /hpf (0-4); Specific Gravity Urine 1.009 (1.000-1.030); Urobilinogen Urine Negative (Negative); WBC Urine Automated >30 /hpf (0-5)
[2023-04-07 21:59] LABS: Albumin Level 4.1 gm/dl (3.4-5.0); BUN Creatinine Ratio 12.6 (10-20); Calcium 9.7 mg/dl (8.6-10.3); Creatinine Clr Calc Pharmacy 109.2 ml/min; Est GFR (African American) 64.8 ml/min; Est GFR (Non-African American) 55.9 ml/min; Globulin 4.1 gm/dl (2.5-4.0); Magnesium 1.5 mg/dl (1.7-2.4); Potassium 2.6 mmol/L (3.5-5.1); Total Protein 8.2 gm/dl (6.0-8.3)
[2023-04-07] MEDS ORDERED: POTASSIUM CHLORIDE CRTAB 20 MEQ TABCR PO STA (22:05)
[2023-04-07 22:06] LABS: Troponin I High Sensitivity 6.4 pg/ml (0-20)
[2023-04-07] MEDS ORDERED: AZITHROMYCIN 500 MG in DEXTROSE 5% 250 ML IV STA (22:14)
[2023-04-07 22:25] LABS: Partial Thromboplastin Ratio 2.8; Prothrombin Time 89.1 Seconds (9.0-12.0)
[2023-04-07 22:50] LABS: INR 9.4 (0.9-1.1)
[2023-04-07] MEDS ORDERED: PHYTONADIONE 2.5 MG in DEXTROSE 5% 50 ML IV STA (23:25)
[2023-04-07] MEDS ORDERED: BENZONATATE 100 MG CAPSULE PO PRN (23:44)
[2023-04-07] MEDS ORDERED: PHARMACY GLYCEMIC MGMT CONSULT PRN (23:44)
[2023-04-07] MEDS ORDERED: NITROGLYCERIN SL 0.4 MG/TAB TAB SL PRN ×2 (23:44)
[2023-04-07] MEDS ORDERED: ALBUTEROL HFA 8 GM INHALER INH PRN (23:44)
[2023-04-07] MEDS ORDERED: POLYETHYLENE (MIRALAX) 17 GM PACK PO PRN (23:44)
[2023-04-07] MEDS ORDERED: DEXTROSE 50% 50 ML SYRINGE IV PRN (23:44)
[2023-04-07] MEDS ORDERED: GLUCOSE 40% GEL 15 GM TUBE PO PRN (23:44)
[2023-04-07] MEDS ORDERED: GLUCOSE 10 TAB/TUBE PO PRN (23:44)
[2023-04-07] MEDS ORDERED: ACETAMINOPHEN 325 MG TAB PO PRN (23:44)
[2023-04-07] MEDS ORDERED: NYSTATIN POWDER 15GM BTL EXT PRN (23:44)
[2023-04-07] MEDS ORDERED: CARBOHYDRATES FOR HYPOGLYCEMIA PO PRN (23:44)
[2023-04-07] MEDS ORDERED: ALBUT/IPRATROP 3MG/0.5MG NEB 3 ML VIAL INH PRN (23:44)
[2023-04-07] MEDS ORDERED: guaiFENesin/DEXTROM SYRUP 100MG/10MG 5ML UDC PO PRN (23:44)
[2023-04-07] MEDS ORDERED: GLUCAGON FOR INJ 1 MG VIAL SQ PRN (23:44)
--- NOTE | 2023-04-07 23:49 | CT Scan Report ---
Exam(s): CT HEAD Without Contrast EXAM: CT Head Without Intravenous Contrast CLINICAL HISTORY: Reason for exam: AMS. inr 9.0. TECHNIQUE: Axial computed tomography images of the head/brain without intravenous contrast. CTDI is 38.1 mGy and DLP is 624.41 mGy-cm. Automated exposure control was utilized for the study. A dose lowering technique was utilized adhering to the principles of ALARA. COMPARISON: No relevant prior studies available. FINDINGS: No acute intracranial hemorrhage. No midline shift or mass effect. The territorial donald-white matter differentiation is maintained throughout. Age-related cerebral volume loss. Periventricular and subcortical white matter hypoattenuation, consistent with chronic microangiopathy. The visualized orbits appear grossly unremarkable. The calvarium is intact. Paranasal sinus mucosal thickening. IMPRESSION: No acute intracranial hemorrhage, midline shift, or mass effect. Electronically signed by: Joe Lr MD 04/07/23 23:48 PM
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
[2023-04-08 00:20] LABS: Amphetamines+Metham, Urine Neg (Neg); Barbiturates, Urine Neg (Neg); Benzodiazepine, Urine Neg (Neg); Cocaine, Urine Neg (Neg); MDMA (Ecstacy), Urine Neg (Neg); Methadone, Urine Neg (Neg); Opiate, Urine Neg (Neg); Phencyclidine, Urine Neg (Neg)
[2023-04-08 00:30] LABS: Base Excess ABG 17.6 mEq/L (-9-1.8); HCO3 ABG 46 mmol/L (19-24); Oxygen Saturation ABG 91.4 % (90-95); PCO2 ABG 73 mmHg (35-46); PO2 ABG 62 mmHg (80-95); pH ABG 7.41 (7.35-7.45)
[2023-04-08] MEDS ORDERED: NSS + 20MEQ KCL 20 MEQ/1,000 ML BAG IV SCH (00:30)
[2023-04-08 00:34] LABS: Allen Test Pos (Pos)
[2023-04-08] MEDS: INSULIN ASPART PER UNIT CHARGE SC SCH ×4 (02:01→16:53)
[2023-04-08] MEDS: MAGNESIUM SULFATE / D5W 1 GM/100 ML BAG IV SCH ×2 (02:08→04:06)
[2023-04-08] MEDS: POTASSIUM CHLORIDE / WTR 10 MEQ/100 ML PLCT IV SCH ×2 (02:08→03:16)
[2023-04-08] MEDS ORDERED: LANTUS PER UNIT CHARGE SQ ONE ×2 (02:30→07:45)
[2023-04-08 05:01] LABS: Hemoglobin 12.9 g/dl (14.0-18.0); Mean Corpuscular Hemoglobin 25.5 pg (25.0-34.0); Mean Corpuscular Hgb Conc 32.3 g/dL (32.0-36.0); Mean Corpuscular Volume 79.2 fL (80.0-100.0); Mean Platelet Volume 10.2 fL (9.4-12.4); Platelet Count 277 K/uL (130-400); RDW Coefficient of Variation 16.6 % (11.5-14.5); RDW Standard Deviation 46.5 fL (36.4-46.3); Red Blood Count 5.05 M/uL (4.70-6.10); White Blood Count 11.15 K/ul (4.8-10.8)
[2023-04-08 05:08] LABS: BUN Creatinine Ratio 16.5 (10-20); Calcium 9.2 mg/dl (8.6-10.3); Creatinine Clr Calc Pharmacy 129.1 ml/min; Est GFR (African American) 79.3 ml/min; Est GFR (Non-African American) 68.4 ml/min; Magnesium 1.8 mg/dl (1.7-2.4); Potassium 3.3 mmol/L (3.5-5.1)
[2023-04-08 05:28] LABS: INR 4.7 (0.9-1.1); Prothrombin Time 46.8 Seconds (9.0-12.0)
[2023-04-08 05:32] LABS: Basophils # (auto) 0.03 K/uL (0-0.2); Basophils % (auto) 0.3 %; Eosinophils # (auto) 0.01 K/uL (0-0.50); Eosinophils % (auto) 0.1 %; Immature Granulocytes # (auto) 0.05 K/uL (0.01-0.20); Immature Granulocytes % (auto) 0.4 %; Lymphocytes # (auto) 0.86 K/uL (1.2-3.4); Lymphocytes % (auto) 7.7 %; Monocytes % (auto) 0.9 %; Neutrophils % (auto) 90.6 %; Polychromasia 1+
[2023-04-08] MEDS ORDERED: cefTRIAXone SODIUM 2,000 MG in DEXTROSE 5% 50 ML IV SCH ×2 (06:00→21:00)
[2023-04-08 06:24] LABS: Estimated Average Glucose 177 mg/dl; Hemoglobin A1C 7.8 % (4.5-5.6)
--- NOTE | 2023-04-08 07:05 | XRay Report ---
XR chest 1V portable CLINICAL HISTORY: Dyspnea TECHNIQUE: Single frontal radiograph of the chest was obtained. Comparison: Comparison is made to chest radiograph 02/22/2020 FINDINGS: Exam is limited by underpenetration. The cardiomediastinal silhouette is normal. The lungs are clear. No evidence of pleural effusion or pneumothorax. IMPRESSION: No acute chest disease. ACT 112: Negative or not required by law. Electronically signed by: Armand Tobar M.D. 04/08/2023 7:04 AM
[2023-04-08] MEDS: ALBUT/IPRATROP 3MG/0.5MG NEB 3 ML VIAL NEB SCH ×4 (07:19→19:13)
--- NOTE | 2023-04-08 07:34 | Communication Note ---
Date of Service: April 08, 2023 Will hold home potassium supplement while holding home diuretics. Thanks
[2023-04-08] MEDS: PANTOprazole 40 MG TAB PO SCH (07:39)
[2023-04-08] MEDS: ASPIRIN 81 MG ECTAB PO SCH (07:40)
[2023-04-08] MEDS: CHOLECALCIFEROL 5,000 UNITS 125 MCG TAB PO SCH (07:40)
[2023-04-08] MEDS: DULoxetine HCL 60 MG CAP PO SCH (07:40)
[2023-04-08] MEDS: DOCUSATE SODIUM 100 MG CAP PO SCH ×2 (07:40→20:17)
[2023-04-08] MEDS: FAMOTIDINE 20 MG TAB PO SCH (07:40)
[2023-04-08] MEDS: MAGNESIUM OXIDE 400 MG TAB PO SCH (07:41)
[2023-04-08] MEDS: FLUTICASONE PROPIONATE NA SPR 16 GM BTL SCH (07:41)
[2023-04-08] MEDS: ADVANCED PROBIOTIC 1250 MG CAPSULE PO SCH ×3 (07:41→20:17)
[2023-04-08] MEDS: FOLIC ACID 1 MG TAB PO SCH (07:41)
[2023-04-08] MEDS: POLYETHYLENE (MIRALAX) 17 GM PACK PO SCH (07:41)
[2023-04-08] MEDS: ISOSORBIDE DINITRATE 10 MG TAB PO SCH (07:41)
[2023-04-08] MEDS: TAMSULOSIN HCL 0.4 MG CAP PO SCH (07:41)
[2023-04-08] MEDS: FERROUS SULFATE 325 MG TAB PO SCH (07:41)
[2023-04-08] MEDS: METOPROLOL SUCC 25MG EXT REL TAB PO SCH ×2 (07:41→20:17)
[2023-04-08] MEDS: FINASTERIDE 5 MG TAB PO SCH (07:41)
[2023-04-08] MEDS ORDERED: INSULIN ASPART PER UNIT CHARGE SC ONE (07:45)
[2023-04-08] MEDS ORDERED: POTASSIUM CHLORIDE CRTAB 20 MEQ TABCR PO ONE (09:17)
[2023-04-08 10:42] LABS: HCO3 ABG 43 mmol/L (19-24); Oxygen Saturation ABG 96.9 % (90-95); PCO2 ABG 66 mmHg (35-46); PO2 ABG 80 mmHg (80-95); pH ABG 7.42 (7.35-7.45)
[2023-04-08 10:43] LABS: Allen Test Pos (Pos)
[2023-04-08] MEDS: NICOTINE 21 MG/24 HR TDSY TD SCH (10:47)
[2023-04-08] MEDS: methylPREDNISolone 40 MG in SYRINGE 0 ML IV SCH ×2 (10:47→20:18)
[2023-04-08] MEDS: DICLOFENAC SOD 1% GEL 100 GM TUBE EXT SCH ×2 (10:47→20:18)
--- NOTE | 2023-04-08 11:41 | Pharmacy Report ---
Pharmacy Glycemic Short Note 2 - Date of Service April 08, 2023 - Glycemic Short BSG Results (Last 24 hours): 04/07/23 04/08/23 04/08/23 20:55 01:47 04:34 Glucose 214 H 274 H POC Glucose 259 H 04/08/23 06:03 Glucose POC Glucose 286 H OUTPATIENT ANTIDIABETIC REGIMEN: * Lantus 20 units BID * Novolog 10 units TIDM * HbA1c 7.8% on 04/08/23 ASSESSMENT: * 52 yo M well-known to our glycemic service admitted 04/07 w AMS, COPD exacerbation. Currently NPO and on steroids * Prior admissions while on similar dose of steroids reviewed - patient receives about 80 units Lantus daily those admissions, but also ordered a diet. Will approximately halve that dose given NPO status. Additional Lantus tonight if patient ends up being ordered a diet * Will utilize Novolog regimen similar to previous admissions while on similar steroid dose, but slightly looser given NPO status PLAN FOR INPATIENT GLYCEMIC CONTROL: * Basal insulin * Lantus 20+25 units SQ this AM. Additional 20 units tonight, but only if consuming a diet * Bolus insulin * NovoLog per scale ACHS or Q6hrs while NPO * Goal Range: Low 110 mg/dL - High 140 mg/dL * Correction Factor: 10 mg/dL/unit * Nutritional / Prandial insulin per carb ratio of 1 unit per 3 grams CHO consumed
--- NOTE | 2023-04-08 13:33 | Hospitalist Progress Note ---
Date of Service April 08, 2023 Assessment & Plan (1) SOB (shortness of breath): Plan: Patient is a 52 yr male who presents with shortness of breath and also found to be altered mental status. Acute on chronic respiratory failure with hypoxia Likely COPD exacerbation --CXR:No acute chest disease. Continue Solu-Medrol, nebs Continue supplemental oxygen as needed Currently on BiPAP Empirically on IV antibiotics Pulmonology consulted Wean oxygen to maintain saturations 88-92 % given history of COPD Acute metabolic encephalopathy Likely multifactorial DD: Hypercarbia, meds, hypoxia, possible infection Rule out UTI -CT Head:No acute intracranial hemorrhage, midline shift, or mass effect. -Hypercarbia noted on ABG --Drug screen negative --Normal ammonia, TSH Urine culture pending Empirically on IV Rocephin Hold any sedating medications ( hold Ativan, hydroxyzine, buprenorphine, gabapentin) Consider MRI, neuro evaluation if needed Hypokalemia Hypomagnesia Hyponatremia Replete electrolytes as needed Monitor Supratherapeutic INR No obvious bleeding issues Coumadin held Monitor INR MAHAMED Cr 1.4 Held Lasix and spironolactone Received gentle IV fluids Monitor renal function Avoid Nephrotoxic agents as able Chronic diastolic CHF Clinically dehydrated Hold diuretics for now Monitor volume status . DM II HbA1C: 7.8 Continue insulin while hospitalized Monitor blood glucose levels Glycemic pharmacy consulted Abnormal EKG Negative cardiac enzymes Repeat EKG no signs of acute ischemia H/O PE Coumadin on hold due to supratherapeutic INR Chronic opioid use Chronic pain Anxiety Hold buprenorphine, gabapentin, Ativan, and hydroxyzine for now Hypertension Continue metoprolol DVT Px: INR supratherapeutic Code Status Full code (2) Acute UTI: (3) COPD (chronic obstructive pulmonary disease): (4) Hypokalemia: (5) Hypomagnesemia: Admission and Anticipated Discharge Date Admission Date: April 07, 2023 Subjective Patient is seen and examined at bedside Drowsy during my encounter Unable to provide much history Currently on BiPAP Review of Systems Review of Systems: Unobtainable due to reduced consciousness Physical Exam Physical Exam: Physical Exam: Vitals signs as noted above General Appearance:Morbidly Obese, on BiPAP Head: normocephalic, Atraumatic Eyes: normal inspection, EOMI Neck: supple, Trachea midline Respiratory/Chest: Decreased coarse breath sounds, scattered crackles, No accessory muscle use Cardiovascular: S1, S2, No murmur Abdomen/GI:Soft, Non tender, normal Bowel sounds Extremities/Musculoskeletal:normal inspection, + 1 Pedal edema, chronic venous stasis changes Neurologic/Psych: Unable to perform complete neurological exam, reduced consciou sness Skin: normal color, warm Results & Data Results & Data Vital Signs (Past 12 Hours) Vital Signs Temp Pulse Pulse Resp BP BP Pulse Ox 04/08/23 11:40 72 25 H 128/71 95 04/08/23 11:30 69 21 94 04/08/23 11:00 69 21 94 04/08/23 10:30 76 16 97 04/08/23 10:00 69 26 H 90 04/08/23 09:30 68 19 93 04/08/23 09:00 67 26 H 93 04/08/23 08:30 70 22 94 04/08/23 08:00 70 22 94 04/08/23 11:15 72 23 95 04/08/23 11:12 72 23 95 04/08/23 07:58 88 L 04/08/23 07:30 70 21 92 04/08/23 07:00 70 24 89 L 04/08/23 06:45 67 24 92 04/08/23 06:00 76 14 98 04/08/23 06:00 149/78 H 04/08/23 05:30 71 12 88 L 04/08/23 05:30 151/84 H 04/08/23 05:02 66 16 92 04/08/23 05:02 108/56 L 04/08/23 05:00 70 17 93 04/08/23 07:00 04/08/23 07:20 71 20 90 04/08/23 07:19 71 20 90 04/08/23 07:02 36.2 C L 66 16 104/46 L 91 04/08/23 06:35 68 18 94 04/08/23 06:35 68 18 94 04/08/23 04:30 71 14 149/74 H 93 04/08/23 04:00 68 13 138/66 93 04/08/23 03:30 69 15 137/75 92 04/08/23 03:00 69 22 133/64 95 04/08/23 02:30 68 20 130/79 92 04/08/23 02:00 71 20 139/68 96 04/08/23 02:49 68 20 93 O2 Del Method FiO2 04/08/23 11:40 04/08/23 11:30 04/08/23 11:00 04/08/23 10:30 04/08/23 10:00 04/08/23 09:30 04/08/23 09:00 04/08/23 08:30 04/08/23 08:00 04/08/23 11:15 50 04/08/23 11:12 BiPAP 50 04/08/23 07:58 50 04/08/23 07:30 04/08/23 07:00 04/08/23 06:45 04/08/23 06:00 04/08/23 06:00 04/08/23 05:30 04/08/23 05:30 04/08/23 05:02 04/08/23 05:02 04/08/23 05:00 04/08/23 07:00 CPAP 04/08/23 07:20 40 04/08/23 07:19 BiPAP 40 04/08/23 07:02 Room Air 04/08/23 06:35 40 04/08/23 06:35 BiPAP 40 04/08/23 04:30 BiPAP 40 04/08/23 04:00 BiPAP 40 04/08/23 03:30 BiPAP 40 04/08/23 03:00 BiPAP 40 04/08/23 02:30 BiPAP 40 04/08/23 02:00 BiPAP 40 04/08/23 02:49 40 Laboratory Results Short CBC 04/07/23 04/08/23 Range/Units 20:55 04:34 WBC 10.76 11.15 H (4.8-10.8) K/ul Hgb 13.8 L 12.9 L (14.0-18.0) g/dl Hct 43.3 40.0 L (42.0-52.0) % Plt Count 336 277 (130-400) K/uL BMP 04/07/23 04/08/23 20:55 04:34 Sodium 133 L 131 L Potassium 2.6 L 3.3 L D Chloride 85 L 88 L Carbon Dioxide 40 H 39 H BUN 18 20 Creatinine 1.43 H 1.21 Glucose 214 H 274 H Calcium 9.7 9.2 Liver Function 04/07/23 Range/Units 20:55 Total Bilirubin 1.0 (0.2-1.0) mg/dl AST 23 (13-39) U/L ALT 18 (7-52) U/L Alkaline Phosphatase 132 H (34-104) U/L Albumin 4.1 (3.4-5.0) gm/dl Urine 04/07/23 Range/Units 21:20 Urine Color Yellow Urine Appearance Cloudy A (Clear) Urine pH 6.0 (4.5-7.5) Ur Specific [place]ier 1.009 (1.000-1.030) Urine Protein 1+ H (Negative) Urine Glucose (UA) Negative (Negative) (3) COPD (chronic obstructive pulmonary disease) COPD type: unspecified COPD Qualified Code(s): J44.9 - Chronic obstructive pulmonary disease, unspecified
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
--- NOTE | 2023-04-08 14:33 | Electrocardiogram Report ---
Test Reason : Blood Pressure : / mmHG Vent. Rate : 084 BPM Atrial Rate : 084 BPM P-R Int : 164 ms QRS Dur : 116 ms QT Int : 402 ms P-R-T Axes : 000 041 244 degrees QTc Int : 475 ms Normal sinus rhythm Abnormal ECG When compared with ECG of 23-FEB-2023 10:26, ST now depressed in Inferior leads ST now depressed in Lateral leads T wave inversion now evident in Inferior leads T wave inversion now evident in Anterolateral leads Confirmed by Luan Escalante ([id number]) on 04/08/2023 2:33:32 PM Referred By: REFERRED SELF Confirmed By:Mark Escalante
--- NOTE | 2023-04-08 17:28 | Electrocardiogram Report ---
Test Reason : Blood Pressure : / mmHG Vent. Rate : 072 BPM Atrial Rate : 072 BPM P-R Int : 180 ms QRS Dur : 116 ms QT Int : 432 ms P-R-T Axes : 055 046 074 degrees QTc Int : 473 ms Normal sinus rhythm Nonspecific T wave abnormality Prolonged QT Abnormal ECG When compared with ECG of 07-APR-2023 20:42, (unconfirmed) ST no longer depressed in Inferior leads T wave inversion no longer evident in Inferior leads T wave inversion no longer evident in Lateral leads Confirmed by Luan Escalante ([id number]) on 04/08/2023 5:28:22 PM Referred By: REFERRED SELF Confirmed By:Mark Escalante
[2023-04-08] MEDS: FORMOTEROL 20 MCG/2 ML VIAL NEB SCH (19:13)
[2023-04-08] MEDS: BUDESONIDE 0.5 MG/2 ML VIAL (PULMICORT) NEB SCH (19:13)
[2023-04-08] MEDS: ATORVASTATIN 40 MG TAB PO SCH (20:17)
[2023-04-08] MEDS: LANTUS PER UNIT CHARGE SC SCH (20:19)
[2023-04-08 21:00] LABS: BUN Creatinine Ratio 16.8 (10-20); Calcium 9.5 mg/dl (8.6-10.3); Creatinine Clr Calc Pharmacy 150.5 ml/min; Est GFR (Non-African American) 79.4 ml/min; Potassium 3.1 mmol/L (3.5-5.1)
[2023-04-08] MEDS: AZITHROMYCIN 250 MG in DEXTROSE 5% 250 ML IV SCH (21:21)
[2023-04-08] MEDS ORDERED: AZITHROMYCIN 500 MG in DEXTROSE 5% 250 ML IV SCH (22:00)
[2023-04-09] MEDS: INSULIN ASPART PER UNIT CHARGE SC SCH ×5 (00:05→23:42)
[2023-04-09] MEDS: PANTOprazole 40 MG TAB PO SCH (05:29)
[2023-04-09] MEDS: FORMOTEROL 20 MCG/2 ML VIAL NEB SCH ×2 (07:14→18:50)
[2023-04-09] MEDS: BUDESONIDE 0.5 MG/2 ML VIAL (PULMICORT) NEB SCH ×2 (07:14→18:50)
[2023-04-09] MEDS: ALBUT/IPRATROP 3MG/0.5MG NEB 3 ML VIAL NEB SCH ×3 (07:15→18:50)
[2023-04-09 07:49] LABS: Hematocrit (blood only) 41.3 % (42.0-52.0); Hemoglobin 13.1 g/dl (14.0-18.0); Mean Corpuscular Hemoglobin 25.6 pg (25.0-34.0); Mean Corpuscular Hgb Conc 31.7 g/dL (32.0-36.0); Mean Corpuscular Volume 80.8 fL (80.0-100.0); Mean Platelet Volume 10.7 fL (9.4-12.4); Platelet Count 297 K/uL (130-400); RDW Coefficient of Variation 16.6 % (11.5-14.5); RDW Standard Deviation 47.9 fL (36.4-46.3); Red Blood Count 5.11 M/uL (4.70-6.10); White Blood Count 14.06 K/ul (4.8-10.8)
[2023-04-09 08:06] LABS: BUN Creatinine Ratio 18.8 (10-20); Calcium 10.3 mg/dl (8.6-10.3); Creatinine Clr Calc Pharmacy 167.8 ml/min; Est GFR (African American) 104.9 ml/min; Est GFR (Non-African American) 90.5 ml/min; Potassium 3.2 mmol/L (3.5-5.1)
[2023-04-09 08:16] LABS: INR 1.4 (0.9-1.1); Prothrombin Time 14.9 Seconds (9.0-12.0)
[2023-04-09] MEDS ORDERED: POTASSIUM CHLORIDE CRTAB 20 MEQ TABCR PO STA (08:16)
[2023-04-09] MEDS: methylPREDNISolone 40 MG in SYRINGE 0 ML IV SCH (08:58)
[2023-04-09] MEDS: FOLIC ACID 1 MG TAB PO SCH (08:59)
[2023-04-09] MEDS: ADVANCED PROBIOTIC 1250 MG CAPSULE PO SCH ×3 (08:59→21:36)
[2023-04-09] MEDS: FINASTERIDE 5 MG TAB PO SCH (08:59)
[2023-04-09] MEDS: DULoxetine HCL 60 MG CAP PO SCH (08:59)
[2023-04-09] MEDS: CHOLECALCIFEROL 5,000 UNITS 125 MCG TAB PO SCH (08:59)
[2023-04-09] MEDS: FERROUS SULFATE 325 MG TAB PO SCH (08:59)
[2023-04-09] MEDS: ASPIRIN 81 MG ECTAB PO SCH (08:59)
[2023-04-09] MEDS: FAMOTIDINE 20 MG TAB PO SCH (08:59)
[2023-04-09] MEDS: ISOSORBIDE DINITRATE 10 MG TAB PO SCH (09:00)
[2023-04-09] MEDS: NICOTINE 21 MG/24 HR TDSY TD SCH (09:00)
[2023-04-09] MEDS: METOPROLOL SUCC 25MG EXT REL TAB PO SCH ×2 (09:00→21:36)
[2023-04-09] MEDS: DICLOFENAC SOD 1% GEL 100 GM TUBE EXT SCH ×3 (09:00→21:45)
[2023-04-09] MEDS: FLUTICASONE PROPIONATE NA SPR 16 GM BTL SCH (09:01)
[2023-04-09] MEDS: MAGNESIUM OXIDE 400 MG TAB PO SCH (09:01)
[2023-04-09] MEDS: DOCUSATE SODIUM 100 MG CAP PO SCH ×2 (09:01→21:36)
[2023-04-09] MEDS: POLYETHYLENE (MIRALAX) 17 GM PACK PO SCH (09:02)
[2023-04-09] MEDS: TAMSULOSIN HCL 0.4 MG CAP PO SCH (09:02)
[2023-04-09] MEDS: LANTUS PER UNIT CHARGE SC SCH ×2 (10:57→21:35)
--- NOTE | 2023-04-09 12:04 | Electrocardiogram Report ---
Test Reason : Blood Pressure : / mmHG Vent. Rate : 073 BPM Atrial Rate : 073 BPM P-R Int : 182 ms QRS Dur : 108 ms QT Int : 414 ms P-R-T Axes : 023 036 053 degrees QTc Int : 456 ms Poor data quality, interpretation may be adversely affected Normal sinus rhythm Incomplete right bundle branch block Diffuse Minor Nonspecific T wave abnormality Abnormal ECG When compared with ECG of 08-APR-2023 11:11, No significant change was found Confirmed by Da Browning ([id number]) on 04/09/2023 12:04:45 PM Referred By: REFERRED SELF Confirmed By:Da Browning
--- NOTE | 2023-04-09 12:59 | Pulmonology Progress Note ---
Date of Service April 09, 2023 Assessment & Plan (1) COPD exacerbation: (2) SOB (shortness of breath): (3) (HFpEF) heart failure with preserved ejection fraction: (4) Acute on chronic respiratory failure with hypoxia and hypercapnia: (5) Wheezing: (6) Tobacco use: Plan Impression: 52-year-old morbidly obese male with multitude of medical issues admitted now with shortness of breath and some degree of bronchospasm on exam as well as compensated hypercarbic respiratory failure with hypoxemic respiratory failure. His mental status is improved Recommendations: 1. Hypercarbic respiratory failure: Suspected degree of obesity hypoventilation syndrome. Continue nocturnal noninvasive positive pressure ventilation. Follow-up with his outpatient provider. This would be recommended in the long- term. He will likely need polysomnography. 2. COPD: PFTs are not available in our system. Could consider completing them in the outpatient setting. He has been seen through [facility] in the past and would recommend that he follow-up with [facility] pulmonary. Much better now. Will transition to oral steroids and continue Perforomist budesonide and Incruse. Can transition to Trelegy at discharge. 3. Patient's respiratory issues are largely complicated by body habitus. Recommend aggressive attempts at weight loss. Nutritional consultation would be of benefit. Due to patient's limited mobility, caloric restriction will be required 4. History of DVT/PE: Patient is supratherapeutic. Coumadin management per primary service. No indication for repeat evaluation currently. Patient appears significantly improved from a respiratory standpoint today. Endpoints are somewhat unclear in this patient with multiple medical issues Admission and Anticipated Discharge Date Admission Date: April 07, 2023 Subjective Patient seen and examined. EMR reviewed. The patient is more awake and interactive today. He is occasionally coughing. He is not expectorating any phlegm. He tolerated noninvasive positive pressure ventilation overnight. Review of Systems Review of Systems: All systems reviewed & are unremarkable except as noted in Subjective Physical Exam Constitutional: WD/WN, vitals as above no acute distress Morbidly obese, limits sensitivity of exam Respiratory: normal respiratory effort; no respiratory distress Auscultation: + diminished lung sounds Cardiovascular: RRR, no murmur, no edema (distant heart sounds ) Vessels: no JVD (unable to assess due to body habitus) Extremities: + edema (chronic lower extremity lymphedema) Gastrointestinal (Abdomen): Percussion/Palpation: abdomen soft; abdomen nontender Results & Data Results & Data Vital Signs (Past 12 Hours) Vital Signs Temp Pulse Pulse Resp BP Pulse Ox O2 Del Method 04/09/23 11:57 36.9 C 72 16 98/63 L 100 Nasal Cannula 04/09/23 11:00 37 C 04/09/23 07:00 73 04/09/23 07:59 36.4 C L 86 18 112/73 97 Nasal Cannula 04/09/23 07:17 77 20 98 Nasal Cannula 04/09/23 02:18 36.6 C 77 20 118/62 90 Nasal Cannula O2 Flow Rate 04/09/23 11:57 6 04/09/23 11:00 04/09/23 07:00 04/09/23 07:59 6 04/09/23 07:17 5 04/09/23 02:18 7 Laboratory Results 04/09/23 07:16 04/09/23 07:16 Diagnostic Findings No new imaging PG Care Time/CCT Total # of Minutes Spent Total Time Spent with Patient: Total time spent is greater than 50% in coordination of care (as documented) at patient's floor/unit and/or counseling patient: Coding Level of Care Code 95608 SUB INP/OBS CARE 2/35MIN Diagnoses COPD exacerbation J44.1 SOB (shortness of breath) R06.02 (HFpEF) heart failure with preserved ejection fraction I50.30 Acute on chronic respiratory failure with hypoxia and hypercapnia J96.21; J96.22 Wheezing R06.2 Tobacco use Z72.0
--- NOTE | 2023-04-09 13:18 | Pharmacy Report ---
Pharmacy Glycemic Short Note 2 - Date of Service April 09, 2023 - Glycemic Short BSG Results (Last 24 hours): 04/08/23 04/08/23 04/08/23 16:26 19:55 20:09 Glucose 156 H POC Glucose 105 H 177 H 04/09/23 04/09/23 04/09/23 00:01 05:36 07:16 Glucose 219 H POC Glucose 264 H 221 H 04/09/23 11:53 Glucose POC Glucose 180 H OUTPATIENT ANTIDIABETIC REGIMEN: * Lantus 20 units BID * Novolog 10 units TIDM * HbA1c: 7.8% (04/08/23) ASSESSMENT: 04/09: * Bill received 71 units of insulin yesterday, 45 units basal + 26 units bolus. BSGs were: [phone] mg/dL. * Ceftriaxone has been discontinued. Remains on Azithromycin. Remains NPO at this time. IV Methylprednisolone was discontinued after the 40 mg dose was given this AM. Will be started on Prednisone 20 mg PO daily tomorrow morning. That will be a 60% reduction in steroid dosing. * Will split Lantus dosing BID to match home regimen. Fasting was significantly elevated at 221 mg/dL this AM. Despite steroids being decreased, will still try to provide the same total daily dose of 45 units today in hopes that it improves fasting BSG to goal range. * No change to Novolog. 04/08: * 52 yo M well-known to our glycemic service admitted 04/07 w AMS, COPD exacerbation. Currently NPO and on steroids * Prior admissions while on similar dose of steroids reviewed - patient receives about 80 units Lantus daily those admissions, but also ordered a diet. Will approximately halve that dose given NPO status. Additional Lantus tonight if patient ends up being ordered a diet * Will utilize Novolog regimen similar to previous admissions while on similar steroid dose, but slightly looser given NPO status PLAN FOR INPATIENT GLYCEMIC CONTROL: * Basal insulin * Lantus 25 units SC AM * Lantus 15-25 units SC PM (see eMAR for more details) * Bolus insulin * NovoLog per scale ACHS or Q6hrs while NPO * Goal Range: Low 110 mg/dL - High 140 mg/dL * Correction Factor: 10 mg/dL/unit * Nutritional / Prandial insulin per carb ratio of 1 unit per 3 grams CHO consumed
[2023-04-09] MEDS: cefTRIAXone SODIUM 2,000 MG in DEXTROSE 5% 50 ML IV SCH (13:51)
--- NOTE | 2023-04-09 15:41 | Hospitalist Progress Note ---
Date of Service April 09, 2023 Assessment & Plan (1) SOB (shortness of breath): Plan: Patient is a 52 yr male who presents with shortness of breath and also found to be altered mental status. Acute on chronic respiratory failure with hypoxia Secondary to COPD exacerbation and is complicated by other comorbid conditions like CHF, fluid overload and obesity, sleep apnea --CXR:No acute chest disease. Continue Solu-Medrol, nebs Continue supplemental oxygen as needed Currently on BiPAP Received 1 dose of ceftriaxone on admission and which will be continued from today again and has been on azithromycin Pulmonology consulted-appreciate input and recommendation Wean oxygen to maintain saturations 88-92 % given history of COPD Clinically not any better Acute metabolic encephalopathy Likely multifactorial DD: Hypercarbia, meds, hypoxia, possible infection -CT Head:No acute intracranial hemorrhage, midline shift, or mass effect. -Hypercarbia noted on ABG --Drug screen negative --Normal ammonia, TSH Rule out UTI-urine culture is growing 2 different organisms further sensitivities pending Empirically on IV Rocephin which will be continued until we get the further sensitivity report Hold any sedating medications ( hold Ativan, hydroxyzine, buprenorphine, gabapentin) Remains hemodynamically stable but is still very drowsy We will observe for today and if needed we will get MRI of the brain if the condition does not get any better by tomorrow Hypokalemia Hypomagnesia Hyponatremia Replete electrolytes as needed Monitor -electrolytes have been normalized Supratherapeutic INR No obvious bleeding issues Coumadin held Monitor INR MAHAMED Cr 1.4 Held Lasix and spironolactone Received gentle IV fluids Monitor renal function Avoid Nephrotoxic agents as able Creatinine has been EYES: Pupils round equal and react to light, extraocular movements full, no injection. Chronic diastolic CHF Clinically dehydrated Hold diuretics for now Monitor volume status . DM II HbA1C: 7.8 Continue insulin while hospitalized Monitor blood glucose levels Glycemic pharmacy consulted Abnormal EKG Negative cardiac enzymes Repeat EKG no signs of acute ischemia H/O PE Coumadin on hold due to supratherapeutic INR Chronic opioid use Chronic pain Anxiety Hold buprenorphine, gabapentin, Ativan, and hydroxyzine for now Hypertension Continue metoprolol DVT Px: INR supratherapeutic Code Status Full code (2) Acute UTI: (3) COPD (chronic obstructive pulmonary disease): (4) Hypokalemia: (5) Hypomagnesemia: Admission and Anticipated Discharge Date Admission Date: April 07, 2023 Subjective 04/09/2023 The patient was seen and examined in telemetry unit He has been very drowsy since this morning Denies any symptoms but has been having difficulty in concentrating with communication No fever and or chills and has been requiring 6 L to maintain saturation Review of Systems Review of Systems: Unobtainable due to cognitive status Physical Exam Physical Exam: Lying in bed very drowsy without any acute distress Constitutional: well developed, well nourished, + ill appearing and + morbidly obese Eyes: PERRL, conjunctivae normal, anicteric sclerae ENMT: external ear and nose normal, oropharynx normal Neck: trachea midline, no thyromegaly Respiratory: no respiratory distress Auscultation: + diminished lung sounds and + crackles (Bibasilar crackles) Cardiovascular: Rate/Rhythm: regular rate and regular rhythm; not tachycardic Heart Sounds: normal S1 and normal S2; no murmur Extremities: + edema (Trace to 1+ edema bilaterally) Gastrointestinal (Abdomen): Inspection/Auscultation: + abdomen distended and normal bowel sounds Percussion/Palpation: abdomen soft; abdomen nontender Musculoskeletal: No acute arthritis involving any of the joint Neurologic: Alert and awake. Very drowsy. Falls asleep after brief period of conversation. Lymphatic: no cervical or axillary lymphadenopathy Results & Data Results & Data Vital Signs (Past 12 Hours) Vital Signs Temp Pulse Pulse Resp BP Pulse Ox O2 Del Method 04/09/23 15:29 36.8 C 67 16 117/61 94 Nasal Cannula 04/09/23 11:57 36.9 C 72 16 98/63 L 100 Nasal Cannula 04/09/23 11:00 37 C 04/09/23 07:00 73 04/09/23 07:59 36.4 C L 86 18 112/73 97 Nasal Cannula 04/09/23 07:17 77 20 98 Nasal Cannula O2 Flow Rate 04/09/23 15:29 6 04/09/23 11:57 6 04/09/23 11:00 04/09/23 07:00 04/09/23 07:59 6 04/09/23 07:17 5 Laboratory Results Short CBC 04/09/23 Range/Units 07:16 WBC 14.06 H (4.8-10.8) K/ul Hgb 13.1 L (14.0-18.0) g/dl Hct 41.3 L (42.0-52.0) % Plt Count 297 (130-400) K/uL BMP 04/08/23 04/09/23 19:55 07:16 Sodium 136 134 L Potassium 3.1 L 3.2 L Chloride 91 L 90 L Carbon Dioxide 38 H 41 H* BUN 18 18 Creatinine 1.07 0.96 Glucose 156 H 219 H Calcium 9.5 10.3 Medications Administered Current Inpatient Medications Acetaminophen (Acetaminophen 325 Mg Tab) 650 mg PO Q4H PRN PRN Reason: Pain or Fever Stop: 05/07/23 23:43 Albuterol (Albuterol Hfa 8 Gm Inhaler) 2 puffs INH Q4 PRN PRN Reason: Dyspnea Stop: 05/07/23 23:43 Albuterol (Albut/Ipratrop 3mg/0.5mg Neb 3 Ml Vial) 3 ml NEB QIDR EMPERATRIZ; Protocol Stop: 05/08/23 06:59 Last Admin: 04/09/23 07:15 Dose: Not Given Aspirin (Aspirin 81 Mg Ectab) 81 mg PO QAM EMPERATRIZ Stop: 05/08/23 08:59 Last Admin: 04/09/23 08:59 Dose: 81 mg Atorvastatin Calcium (Atorvastatin 40 Mg Tab) 80 mg PO QPM [facility] Stop: 05/08/23 20:59 Last Admin: 04/08/23 20:17 Dose: 80 mg Benzonatate (Benzonatate 100 Mg Capsule) 100 mg PO TID PRN PRN Reason: cough Stop: 05/07/23 23:43 Last Admin: 04/08/23 23:28 Dose: 100 mg Budesonide (Budesonide 0.5 Mg/2 Ml Vial (Pulmicort)) 0.5 mg NEB BIDR [facility] Stop: 05/08/23 18:59 Last Admin: 04/09/23 07:14 Dose: 0.5 mg Cyclobenzaprine HCl (Cyclobenzaprine Hcl 10 Mg Tab) 10 mg PO BID PRN PRN Reason: Muscle Spasm Stop: 05/07/23 23:43 Dextrose (Dextrose 50% 50 Ml Syringe) 25 - 50 ml IV UD PRN; Protocol PRN Reason: Hypoglycemia Protocol Stop: 05/07/23 23:43 Diclofenac Sodium (Diclofenac Sod 1% Gel 100 Gm Tube) 2 gm EXT BID [facility]; Protocol Stop: 05/08/23 08:59 Last Admin: 04/09/23 09:00 Dose: 2 gm Docusate Sodium (Docusate Sodium 100 Mg Cap) 100 mg PO BID [facility] Stop: 05/08/23 08:59 Last Admin: 04/09/23 09:01 Dose: 100 mg Duloxetine HCl (Duloxetine Hcl 60 Mg Cap) 60 mg PO DAILY [facility] Stop: 05/08/23 08:59 Last Admin: 04/09/23 08:59 Dose: 60 mg Famotidine (Famotidine 20 Mg Tab) 20 mg PO DAILY [facility] Stop: 05/08/23 08:59 Last Admin: 04/09/23 08:59 Dose: 20 mg Ferrous Sulfate (Ferrous Sulfate 325 Mg Tab) 325 mg PO QAM [facility] Stop: 05/08/23 08:59 Last Admin: 04/09/23 08:59 Dose: 325 mg Finasteride (Finasteride 5 Mg Tab) 5 mg PO QAM [facility] Stop: 05/08/23 08:59 Last Admin: 04/09/23 08:59 Dose: 5 mg Fluticasone Propionate (Fluticasone Propionate Na Spr 16 Gm Btl) 2 sprays NA DAILY [facility] Stop: 05/08/23 08:59 Last Admin: 04/09/23 09:01 Dose: Not Given Folic Acid (Folic Acid 1 Mg Tab) 1 mg PO QAM [facility] Stop: 05/08/23 08:59 Last Admin: 04/09/23 08:59 Dose: 1 mg Formoterol Fumarate (Formoterol 20 Mcg/2 Ml Vial) 20 mcg NEB BIDR [facility] Stop: 05/08/23 18:59 Last Admin: 04/09/23 07:14 Dose: 20 mcg Glucagon (Glucagon For Inj 1 Mg Vial) 1 mg SQ UD PRN; Protocol PRN Reason: Hypoglycemia Protocol Stop: 05/07/23 23:43 Glucose (Glucose 10 Tab/Tube) 4 - 8 tab PO UD PRN; Protocol PRN Reason: Hypoglycemia Treatment Stop: 05/07/23 23:43 Glucose (Glucose 40% Gel 15 Gm Tube) 15 - 30 gm PO UD PRN; Protocol PRN Reason: Hypoglycemia Protocol Stop: 05/07/23 23:43 Guaifenesin/Dextromethorphan (Guaifenesin/Dextrom Syrup 100mg/10mg 5ml Udc) 5 ml PO Q6H PRN PRN Reason: cough Stop: 05/07/23 23:43 Azithromycin 250 mg/ Dextrose 252.5 mls @ 125 mls/hr IV Q24H [facility] Stop: 04/15/23 21:59 Last Infusion: 04/08/23 23:27 Dose: Infused Ceftriaxone Sodium 2,000 mg/ (Dextrose) 70 mls @ 100 mls/hr IV Q24H [facility]; Protocol Stop: 04/19/23 12:29 Last Infusion: 04/09/23 15:08 Dose: Infused Insulin Aspart (Insulin Aspart Per Unit Charge) 0 units SC Q6 [facility] Stop: 05/08/23 00:59 Last Admin: 04/09/23 12:22 Dose: 4 units Insulin Glargine (Lantus Per Unit Charge) 0 units SC HS [facility]; Protocol Stop: 05/08/23 20:59 Last Admin: 04/08/23 20:19 Dose: Not Given Insulin Glargine (Lantus Per Unit Charge) 25 units SC DAILY [facility]; Protocol Stop: 05/09/23 09:14 Last Admin: 04/09/23 10:57 Dose: 25 units Isosorbide Dinitrate (Isosorbide Dinitrate 10 Mg Tab) 30 mg PO DAILY [facility] Stop: 05/08/23 08:59 Last Admin: 04/09/23 09:00 Dose: 30 mg Lactobacillus Acidophilus (Advanced Probiotic 1250 Mg Capsule) 2 cap PO TID [facility] Stop: 05/08/23 08:59 Last Admin: 04/09/23 15:08 Dose: Not Given Magnesium Oxide (Magnesium Oxide 400 Mg Tab) 400 mg PO DAILY [facility] Stop: 05/08/23 08:59 Last Admin: 04/09/23 09:01 Dose: 400 mg Metoprolol Succinate (Metoprolol Succ 25mg Ext Rel Tab) 75 mg PO BID [facility] Stop: 05/08/23 08:59 Last Admin: 04/09/23 09:00 Dose: 75 mg Miscellaneous (Remove Nicoderm Patch) 1 each N/A DAILY@0859 [facility] Stop: 05/08/23 08:58 Last Admin: 04/09/23 09:01 Dose: Not Given Miscellaneous (Carbohydrates For Hypoglycemia ) 15 - 30 gm PO UD PRN PRN Reason: Hypoglycemia Protocol Stop: 05/07/23 23:43 Miscellaneous Information (Pharmacy Glycemic Mgmt Consult) 1 each N/A UD PRN PRN Reason: Consult Stop: 05/07/23 23:43 Nicotine (Nicotine 21 Mg/24 Hr Tdsy) 21 mg TD DAILY [facility] Stop: 05/08/23 08:59 Last Admin: 04/09/23 09:00 Dose: 21 mg Nitroglycerin (Nitroglycerin Sl 0.4 Mg/Tab Tab) 0.4 mg SL Q5M PRN PRN Reason: Chest Pain Stop: 05/07/23 23:43 Nystatin (Nystatin Powder 15gm Btl) 1 appln EXT TID PRN PRN Reason: Skin Irritation Stop: 05/07/23 23:43 Pantoprazole Sodium (Pantoprazole 40 Mg Tab) 40 mg PO DAILYBB [facility] Stop: 05/08/23 06:29 Last Admin: 04/09/23 05:29 Dose: Not Given Polyethylene Glycol (Polyethylene (Miralax) 17 Gm Pack) [facility] Stop: 05/08/23 08:59 Last Admin: 04/09/23 09:02 Dose: Not Given Potassium Chloride (Potassium Chloride Crtab 20 Meq Tabcr) 40 meq PO BID [facility] Stop: 05/08/23 08:59 Prednisone (Prednisone 20 Mg Tab) 20 mg PO DAILY [facility] Stop: 05/10/23 08:59 Promethazine HCl (Promethazine Hcl 25 Mg Tab) 12.5 mg PO BID PRN PRN Reason: nausea and vomiting Stop: 05/07/23 23:43 Sennosides (Senna 8.6 Mg Tab) 8.6 mg PO DAILY PRN PRN Reason: Constipation Stop: 05/07/23 23:43 Tamsulosin HCl (Tamsulosin Hcl 0.4 Mg Cap) [facility] Stop: 05/08/23 08:59 Last Admin: 04/09/23 09:02 Dose: 0.8 mg Vitamin D (Cholecalciferol 5,000 Units 125 Mcg Tab) 5,000 units PO QAM [facility] Stop: 05/08/23 08:59 Last Admin: 04/09/23 08:59 Dose: 5,000 units (3) COPD (chronic obstructive pulmonary disease) COPD type: unspecified COPD Qualified Code(s): J44.9 - Chronic obstructive pulmonary disease, unspecified
[2023-04-09] MEDS: ATORVASTATIN 40 MG TAB PO SCH (21:36)
[2023-04-09] MEDS: AZITHROMYCIN 250 MG in DEXTROSE 5% 250 ML IV SCH (21:36)
[2023-04-10] MEDS: PANTOprazole 40 MG TAB PO SCH (06:17)
[2023-04-10] MEDS: INSULIN ASPART PER UNIT CHARGE SC SCH ×4 (06:17→20:19)
[2023-04-10] MEDS: FORMOTEROL 20 MCG/2 ML VIAL NEB SCH ×2 (07:19→18:58)
[2023-04-10] MEDS: BUDESONIDE 0.5 MG/2 ML VIAL (PULMICORT) NEB SCH ×2 (07:19→18:58)
[2023-04-10] MEDS: ALBUT/IPRATROP 3MG/0.5MG NEB 3 ML VIAL NEB SCH ×4 (07:20→18:58)
[2023-04-10 07:30] LABS: Basophils # (auto) 0.08 K/uL (0-0.2); Basophils % (auto) 0.7 %; Eosinophils # (auto) 0.09 K/uL (0-0.50); Eosinophils % (auto) 0.8 %; Hematocrit (blood only) 42.5 % (42.0-52.0); Hemoglobin 13.2 g/dl (14.0-18.0); Immature Granulocytes # (auto) 0.04 K/uL (0.01-0.20); Immature Granulocytes % (auto) 0.4 %; Lymphocytes # (auto) 3.48 K/uL (1.2-3.4); Lymphocytes % (auto) 30.8 %; Mean Corpuscular Hemoglobin 25.7 pg (25.0-34.0); Mean Corpuscular Hgb Conc 31.1 g/dL (32.0-36.0); Mean Corpuscular Volume 82.7 fL (80.0-100.0); Mean Platelet Volume 10.5 fL (9.4-12.4); Monocytes % (auto) 8.8 %; Neutrophils # (auto) 6.61 K/uL (1.40-6.50); Neutrophils % (auto) 58.5 %; Platelet Count 305 K/uL (130-400); RDW Coefficient of Variation 16.7 % (11.5-14.5); RDW Standard Deviation 49.5 fL (36.4-46.3); Red Blood Count 5.14 M/uL (4.70-6.10)
[2023-04-10 07:55] LABS: INR 1.2 (0.9-1.1); Prothrombin Time 12.6 Seconds (9.0-12.0)
--- NOTE | 2023-04-10 08:48 | Pulmonology Progress Note ---
Date of Service April 10, 2023 Assessment & Plan (1) COPD exacerbation: (2) SOB (shortness of breath): (3) (HFpEF) heart failure with preserved ejection fraction: (4) Acute on chronic respiratory failure with hypoxia and hypercapnia: (5) Wheezing: (6) Tobacco use: Plan Impression: 52-year-old morbidly obese male with multitude of medical issues admitted now with shortness of breath and some degree of bronchospasm on exam as well as compensated hypercarbic respiratory failure with hypoxemic respiratory failure. His mental status is improved Recommendations: 1. Hypercarbic respiratory failure: Suspected degree of obesity hypoventilation syndrome. Patient does not appear to be compliant with noninvasive positive pressure ventilation and its unclear if he would use it at home. The only alternative to BiPAP at this point time would be tracheostomy which I do not thi nk the patient is a candidate for. If he continues to refuse life-sustaining therapies, would recommend having a discussion with the patient regarding his desires and CODE STATUS. It would be inappropriate for the patient to continue full CODE STATUS if he is unwilling to comply with recommended medical interventions. 2. COPD: PFTs are not available in our system. Continue current bronchodila tors and oral steroids. Bronchospasm appears considerably improved 3. Patient's respiratory issues are largely complicated by body habitus. Recommend aggressive attempts at weight loss. Nutritional consultation would be of benefit. Due to patient's limited mobility, caloric restriction will be required 4. History of DVT/PE: Patient is supratherapeutic. Coumadin management per primary service. No indication for repeat evaluation currently. Unclear inpatient endpoint in this patient who apparently is noncompliant with recommended therapies. Disposition per primary service Admission and Anticipated Discharge Date Admission Date: April 07, 2023 Subjective Patient seen and examined. EMR reviewed. Discussed with bedside nurse. The patient states that he used his CPAP but nursing reports that he would not wear it at night and was pulling it off. Medical compliance remains an issue. He is somewhat somnolent this morning but able to arouse and answer some questions appropriately. Review of Systems Review of Systems: Unobtainable due to reduced consciousness Physical Exam Constitutional: WD/WN, vitals as above no acute distress Respiratory: normal respiratory effort; no respiratory distress Auscultation: + diminished lung sounds Cardiovascular: RRR, no murmur, no edema (distant heart sounds ) Vessels: no JVD (unable to assess due to body habitus) Extremities: + edema (chronic lower extremity lymphedema) Gastrointestinal (Abdomen): Percussion/Palpation: abdomen soft; abdomen nontender Results & Data Results & Data Vital Signs (Past 12 Hours) Vital Signs Temp Pulse Pulse Resp BP Pulse Ox O2 Del Method 04/10/23 07:45 36.4 C L 68 18 123/58 L 96 Nasal Cannula 04/10/23 07:20 68 18 94 Nasal Cannula 04/10/23 02:36 36.5 C 91 H 20 135/84 97 Nasal Cannula 04/09/23 23:29 36.4 C L 76 20 136/83 95 Nasal Cannula 04/09/23 21:30 Nasal Cannula 04/09/23 22:52 70 O2 Flow Rate 04/10/23 07:45 4 04/10/23 07:20 4 04/10/23 02:36 5 04/09/23 23:29 5 04/09/23 21:30 5 04/09/23 22:52 Laboratory Results 04/10/23 06:27 Diagnostic Findings No new imaging PG Care Time/CCT Total # of Minutes Spent Total Time Spent with Patient: Total time spent is greater than 50% in coordination of care (as documented) at patient's floor/unit and/or counseling patient: Coding Level of Care Code 24157 SUB INP/OBS CARE 2/35MIN Diagnoses COPD exacerbation J44.1 SOB (shortness of breath) R06.02 (HFpEF) heart failure with preserved ejection fraction I50.30 Acute on chronic respiratory failure with hypoxia and hypercapnia J96.21; J96.22 Wheezing R06.2 Tobacco use Z72.0
[2023-04-10] MEDS: ASPIRIN 81 MG ECTAB PO SCH (09:16)
[2023-04-10] MEDS: ADVANCED PROBIOTIC 1250 MG CAPSULE PO SCH ×3 (09:16→20:50)
[2023-04-10] MEDS: METOPROLOL SUCC 25MG EXT REL TAB PO SCH ×2 (09:16→20:49)
[2023-04-10] MEDS: DULoxetine HCL 60 MG CAP PO SCH (09:17)
[2023-04-10] MEDS: FINASTERIDE 5 MG TAB PO SCH (09:17)
[2023-04-10] MEDS: TAMSULOSIN HCL 0.4 MG CAP PO SCH (09:17)
[2023-04-10] MEDS: DICLOFENAC SOD 1% GEL 100 GM TUBE EXT SCH ×2 (09:17→20:50)
[2023-04-10] MEDS: CHOLECALCIFEROL 5,000 UNITS 125 MCG TAB PO SCH (09:17)
[2023-04-10] MEDS: predniSONE 20 MG TAB PO SCH (09:17)
[2023-04-10] MEDS: SENNA 8.6 MG TAB PO PRN (09:17)
[2023-04-10] MEDS: ISOSORBIDE DINITRATE 10 MG TAB PO SCH (09:17)
[2023-04-10] MEDS: FERROUS SULFATE 325 MG TAB PO SCH (09:17)
[2023-04-10] MEDS: FOLIC ACID 1 MG TAB PO SCH (09:17)
[2023-04-10] MEDS: FAMOTIDINE 20 MG TAB PO SCH (09:17)
[2023-04-10] MEDS: NICOTINE 21 MG/24 HR TDSY TD SCH (09:18)
[2023-04-10] MEDS: FLUTICASONE PROPIONATE NA SPR 16 GM BTL SCH (09:18)
[2023-04-10] MEDS: MAGNESIUM OXIDE 400 MG TAB PO SCH (09:18)
[2023-04-10] MEDS: POLYETHYLENE (MIRALAX) 17 GM PACK PO SCH (09:18)
[2023-04-10] MEDS: DOCUSATE SODIUM 100 MG CAP PO SCH ×2 (09:23→20:49)
[2023-04-10] MEDS: LANTUS PER UNIT CHARGE SC SCH ×2 (09:23→20:18)
[2023-04-10 10:02] LABS: Albumin Level 3.7 gm/dl (3.4-5.0); BUN Creatinine Ratio 17.3 (10-20); Calcium 10.4 mg/dl (8.6-10.3); Creatinine Clr Calc Pharmacy 150.1 ml/min; Est GFR (African American) 95.2 ml/min; Est GFR (Non-African American) 82.2 ml/min; Globulin 3.7 gm/dl (2.5-4.0); Magnesium 2.1 mg/dl (1.7-2.4); Phosphorus 1.8 mg/dl (2.5-4.9); Potassium 2.8 mmol/L (3.5-5.1); Total Protein 7.4 gm/dl (6.0-8.3)
[2023-04-10] MEDS ORDERED: POTASSIUM PHOS 3 MMOL/1 ML INFUSION IV STA (13:31)
--- NOTE | 2023-04-10 13:35 | Hospitalist Progress Note ---
Date of Service April 10, 2023 Assessment & Plan (1) SOB (shortness of breath): Plan: Patient is a 52 yr male who presents with shortness of breath and also found to be altered mental status. Acute on chronic respiratory failure with hypoxia Secondary to COPD exacerbation and is complicated by other comorbid conditions like CHF, fluid overload and obesity, sleep apnea --CXR:No acute chest disease. Continue Solu-Medrol, nebs Continue supplemental oxygen as needed Currently on BiPAP Received 1 dose of ceftriaxone on admission and which will be continued from today again and has been on azithromycin Pulmonology consulted-appreciate input and recommendation Wean oxygen to maintain saturations 88-92 % given history of COPD Clinically not any better He has been refusing BiPAP and not been able to blow out CO2 which remains elevated He agreed to use BiPAP more to help with situation If he is not compliant he will have a palliative care evaluation down the line Acute metabolic encephalopathy Likely multifactorial DD: Hypercarbia, meds, hypoxia, possible infection -CT Head:No acute intracranial hemorrhage, midline shift, or mass effect. -Hypercarbia noted on ABG --Drug screen negative --Normal ammonia, TSH -Could be secondary to complicated UTI Has UTI with Klebsiella pneumoniae and Enterococcus faecium VRE Empirically on IV Rocephin which will be continued until we get the further sensitivity report Hold any sedating medications ( hold Ativan, hydroxyzine, buprenorphine, gabapentin) He has been getting ceftriaxone since yesterday and he is allergic to daptomycin The case was discussed with ID specialist in [place], Dr. Alves and recommended to use linezolid Discussed with the pharmacist and linezolid was restarted for VRE and Cymbalta has been on hold from today that is 04/10/2023 Lloyd catheter changed and repeat urine culture has been sent Hypokalemia Hypomagnesia Hyponatremia Replete electrolytes as needed Monitor -electrolytes have been normalized Potassium and phosphate will be replaced Supratherapeutic INR No obvious bleeding issues Coumadin held Monitor INR-has been low at 1.2 as of 04/10/2023 Will restart Coumadin and monitor INR MAHAMED Cr 1.4 Held Lasix and spironolactone Received gentle IV fluids Monitor renal function Avoid Nephrotoxic agents as able Creatinine has been EYES: Pupils round equal and react to light, extraocular movements full, no injection. Chronic diastolic CHF Clinically dehydrated Hold diuretics for now Monitor volume status . DM II HbA1C: 7.8 Continue insulin while hospitalized Monitor blood glucose levels Glycemic pharmacy consulted Abnormal EKG Negative cardiac enzymes Repeat EKG no signs of acute ischemia H/O PE Coumadin on hold due to supratherapeutic INR Chronic opioid use Chronic pain Anxiety Hold buprenorphine, gabapentin, Ativan, and hydroxyzine for now Hypertension Continue metoprolol DVT Px: INR supratherapeutic Code Status Full code (2) Acute UTI: (3) COPD (chronic obstructive pulmonary disease): (4) Hypokalemia: (5) Hypomagnesemia: Admission and Anticipated Discharge Date Admission Date: April 07, 2023 Subjective 04/09/2023 The patient was seen and examined in telemetry unit He has been very drowsy since this morning Denies any symptoms but has been having difficulty in concentrating with communication No fever and or chills and has been requiring 6 L to maintain saturation 04/10/2023 The patient was seen and examined in telemetry unit He has been more alert and awake today but he still remains very drowsy Denies any significant symptoms of shortness of breath, pain and/or palpitation No fever and or chills Review of Systems Review of Systems: Unobtainable due to cognitive status Physical Exam Physical Exam: Lying in bed very drowsy without any acute distress Constitutional: well developed, well nourished, + ill appearing and + morbidly obese Eyes: PERRL, conjunctivae normal, anicteric sclerae ENMT: external ear and nose normal, oropharynx normal Neck: trachea midline, no thyromegaly Respiratory: no respiratory distress Auscultation: + diminished lung sounds and + crackles (Bibasilar crackles) Cardiovascular: Rate/Rhythm: regular rate and regular rhythm; not tachycardic Heart Sounds: normal S1 and normal S2; no murmur Extremities: + edema (Trace to 1+ edema bilaterally) Gastrointestinal (Abdomen): Inspection/Auscultation: + abdomen distended and normal bowel sounds Percussion/Palpation: abdomen soft; abdomen nontender Musculoskeletal: No acute arthritis involving any of the joint Neurologic: Alert and awake. Still drowsy. Generally very weak and lethargic Lymphatic: no cervical or axillary lymphadenopathy Results & Data Results & Data Vital Signs (Past 12 Hours) Vital Signs Temp Pulse Pulse Resp BP Pulse Ox O2 Del Method 04/10/23 11:19 36.5 C 78 18 120/72 96 Nasal Cannula 04/10/23 11:28 88 20 93 Nasal Cannula 04/10/23 07:00 68 04/10/23 07:45 36.4 C L 68 18 123/58 L 96 Nasal Cannula 04/10/23 07:20 68 18 94 Nasal Cannula 04/10/23 02:36 36.5 C 91 H 20 135/84 97 Nasal Cannula O2 Flow Rate 04/10/23 11:19 04/10/23 11:28 4 04/10/23 07:00 04/10/23 07:45 4 04/10/23 07:20 4 04/10/23 02:36 5 Laboratory Results Short CBC 04/10/23 Range/Units 06:27 WBC 11.30 H (4.8-10.8) K/ul Hgb 13.2 L (14.0-18.0) g/dl Hct 42.5 (42.0-52.0) % Plt Count 305 (130-400) K/uL BMP 04/10/23 06:27 Sodium 140 Potassium 2.8 L Chloride 93 L Carbon Dioxide 41 H* BUN 18 Creatinine 1.04 Glucose 151 H Calcium 10.4 H Liver Function 04/10/23 Range/Units 06:27 Total Bilirubin 1.0 (0.2-1.0) mg/dl AST 24 (13-39) U/L ALT 16 (7-52) U/L Alkaline Phosphatase 106 H (34-104) U/L Albumin 3.7 (3.4-5.0) gm/dl Medications Administered Current Inpatient Medications Acetaminophen (Acetaminophen 325 Mg Tab) 650 mg PO Q4H PRN PRN Reason: Pain or Fever Stop: 05/07/23 23:43 Albuterol (Albuterol Hfa 8 Gm Inhaler) 2 puffs INH Q4 PRN PRN Reason: Dyspnea Stop: 05/07/23 23:43 Albuterol (Albut/Ipratrop 3mg/0.5mg Neb 3 Ml Vial) 3 ml NEB QIDR [facility]; Protocol Stop: 05/08/23 06:59 Last Admin: 04/10/23 11:27 Dose: 3 ml Aspirin (Aspirin 81 Mg Ectab) [facility] [place] Stop: 05/08/23 08:59 Last Admin: 04/10/23 09:16 Dose: 81 mg Atorvastatin Calcium (Atorvastatin 40 Mg Tab) 80 mg PO QPM EMPERATRIZ Stop: 05/08/23 20:59 Last Admin: 04/09/23 21:36 Dose: 80 mg Benzonatate (Benzonatate 100 Mg Capsule) 100 mg PO TID PRN PRN Reason: cough Stop: 05/07/23 23:43 Last Admin: 04/08/23 23:28 Dose: 100 mg Budesonide (Budesonide 0.5 Mg/2 Ml Vial (Pulmicort)) 0.5 mg NEB BIDR EMPERATRIZ Stop: 05/08/23 18:59 Last Admin: 04/10/23 07:19 Dose: 0.5 mg Cyclobenzaprine HCl (Cyclobenzaprine Hcl 10 Mg Tab) 10 mg PO BID PRN PRN Reason: Muscle Spasm Stop: 05/07/23 23:43 Dextrose (Dextrose 50% 50 Ml Syringe) 25 - 50 ml IV UD PRN; Protocol PRN Reason: Hypoglycemia Protocol Stop: 05/07/23 23:43 Diclofenac Sodium (Diclofenac Sod 1% Gel 100 Gm Tube) 2 gm EXT BID EMPERATRIZ; Protocol Stop: 05/08/23 08:59 Last Admin: 04/10/23 09:17 Dose: 2 gm Docusate Sodium (Docusate Sodium 100 Mg Cap) 100 mg PO BID EMPERATRIZ Stop: 05/08/23 08:59 Last Admin: 04/10/23 09:23 Dose: Not Given Duloxetine HCl (Duloxetine Hcl 60 Mg Cap) 60 mg PO DAILY EMPERATRIZ Stop: 05/08/23 08:59 Last Admin: 04/10/23 09:17 Dose: 60 mg Famotidine (Famotidine 20 Mg Tab) 20 mg PO DAILY EMPERATRIZ Stop: 05/08/23 08:59 Last Admin: 04/10/23 09:17 Dose: 20 mg Ferrous Sulfate (Ferrous Sulfate 325 Mg Tab) 325 mg PO QAM [facility] Stop: 05/08/23 08:59 Last Admin: 04/10/23 09:17 Dose: 325 mg Finasteride (Finasteride 5 Mg Tab) 5 mg PO QAM [facility] Stop: 05/08/23 08:59 Last Admin: 04/10/23 09:17 Dose: 5 mg Fluticasone Propionate (Fluticasone Propionate Na Spr 16 Gm Btl) 2 sprays NA DAILY EMPERATRIZ Stop: 05/08/23 08:59 Last Admin: 04/10/23 09:18 Dose: Not Given Folic Acid (Folic Acid 1 Mg Tab) 1 mg PO QAM [facility] Stop: 05/08/23 08:59 Last Admin: 04/10/23 09:17 Dose: 1 mg Formoterol Fumarate (Formoterol 20 Mcg/2 Ml Vial) 20 mcg NEB BIDR EMPERATRIZ Stop: 05/08/23 18:59 Last Admin: 04/10/23 07:19 Dose: 20 mcg Glucagon (Glucagon For Inj 1 Mg Vial) 1 mg SQ UD PRN; Protocol PRN Reason: Hypoglycemia Protocol Stop: 05/07/23 23:43 Glucose (Glucose 10 Tab/Tube) 4 - 8 tab PO UD PRN; Protocol PRN Reason: Hypoglycemia Treatment Stop: 05/07/23 23:43 Glucose (Glucose 40% Gel 15 Gm Tube) 15 - 30 gm PO UD PRN; Protocol PRN Reason: Hypoglycemia Protocol Stop: 05/07/23 23:43 Guaifenesin/Dextromethorphan (Guaifenesin/Dextrom Syrup 100mg/10mg 5ml Udc) 5 ml PO Q6H PRN PRN Reason: cough Stop: 05/07/23 23:43 Azithromycin 250 mg/ Dextrose 252.5 mls @ 125 mls/hr IV Q24H [facility] Stop: 04/15/23 21:59 Last Infusion: 04/09/23 23:42 Dose: Infused Ceftriaxone Sodium 2,000 mg/ (Dextrose) 70 mls @ 100 mls/hr IV Q24H [facility]; Protocol Stop: 04/19/23 12:29 Last Infusion: 04/09/23 15:08 Dose: Infused Linezolid (Zyvox) 600 mg in 300 mls @ 200 mls/hr IV Q12H [facility] Stop: 04/20/23 10:44 Potassium Phosphate 30 mmol/ (Sodium Chloride) 510 mls @ 88 mls/hr IV ONE ONE Stop: 04/10/23 19:47 Insulin Aspart (Insulin Aspart Per Unit Charge) 0 units SC Q6 [facility] Stop: 05/08/23 00:59 Last Admin: 04/10/23 12:48 Dose: Not Given Insulin Glargine (Lantus Per Unit Charge) 0 units SC HS [facility]; Protocol Stop: 05/08/23 20:59 Last Admin: 04/09/23 21:35 Dose: 20 units Insulin Glargine (Lantus Per Unit Charge) 25 units SC DAILY [facility]; Protocol Stop: 05/09/23 09:14 Last Admin: 04/10/23 09:23 Dose: 25 units Isosorbide Dinitrate (Isosorbide Dinitrate 10 Mg Tab) 30 mg PO DAILY [facility] Stop: 05/08/23 08:59 Last Admin: 04/10/23 09:17 Dose: 30 mg Lactobacillus Acidophilus (Advanced Probiotic 1250 Mg Capsule) 2 cap PO TID [facility] Stop: 05/08/23 08:59 Last Admin: 04/10/23 09:16 Dose: 2 cap Magnesium Oxide (Magnesium Oxide 400 Mg Tab) 400 mg PO DAILY [facility] Stop: 05/08/23 08:59 Last Admin: 04/10/23 09:18 Dose: 400 mg Metoprolol Succinate (Metoprolol Succ 25mg Ext Rel Tab) 75 mg PO BID [facility] Stop: 05/08/23 08:59 Last Admin: 04/10/23 09:16 Dose: 75 mg Miscellaneous (Remove Nicoderm Patch) 1 each N/A DAILY@0859 [facility] Stop: 05/08/23 08:58 Last Admin: 04/10/23 09:18 Dose: Not Given Miscellaneous (Carbohydrates For Hypoglycemia ) 15 - 30 gm PO UD PRN PRN Reason: Hypoglycemia Protocol Stop: 05/07/23 23:43 Miscellaneous Information (Pharmacy Glycemic Mgmt Consult) 1 each N/A UD PRN PRN Reason: Consult Stop: 05/07/23 23:43 Nicotine (Nicotine 21 Mg/24 Hr Tdsy) 21 mg TD DAILY [facility] Stop: 05/08/23 08:59 Last Admin: 04/10/23 09:18 Dose: Not Given Nitroglycerin (Nitroglycerin Sl 0.4 Mg/Tab Tab) 0.4 mg SL Q5M PRN PRN Reason: Chest Pain Stop: 05/07/23 23:43 Nystatin (Nystatin Powder 15gm Btl) 1 appln EXT TID PRN PRN Reason: Skin Irritation Stop: 05/07/23 23:43 Pantoprazole Sodium (Pantoprazole 40 Mg Tab) 40 mg PO DAILYBB [facility] Stop: 05/08/23 06:29 Last Admin: 04/10/23 06:17 Dose: Not Given Polyethylene Glycol (Polyethylene (Miralax) 17 Gm Pack) 17 [facility] [place] Stop: 05/08/23 08:59 Last Admin: 04/10/23 09:18 Dose: Not Given Potassium Chloride (Potassium Chloride Crtab 20 Meq Tabcr) 40 meq PO BID [facility] Stop: 05/08/23 08:59 Prednisone (Prednisone 20 Mg Tab) 20 mg PO DAILY [facility] Stop: 05/10/23 08:59 Last Admin: 04/10/23 09:17 Dose: 20 mg Promethazine HCl (Promethazine Hcl 25 Mg Tab) 12.5 mg PO BID PRN PRN Reason: nausea and vomiting Stop: 05/07/23 23:43 Sennosides (Senna 8.6 Mg Tab) 8.6 mg PO DAILY PRN PRN Reason: Constipation Stop: 05/07/23 23:43 Last Admin: 04/10/23 09:17 Dose: 8.6 mg Tamsulosin HCl (Tamsulosin Hcl 0.4 Mg Cap) 0.8 mg PO [facility] Stop: 05/08/23 08:59 Last Admin: 04/10/23 09:17 Dose: 0.8 mg Vitamin D (Cholecalciferol 5,000 Units 125 Mcg Tab) 5,000 units [facility] [place] Stop: 05/08/23 08:59 Last Admin: 04/10/23 09:17 Dose: 5,000 units Warfarin Sodium (Warfarin Sod 2.5 Mg Tab) 2.5 mg PO TuTh@1600 [facility] Stop: 05/13/23 15:59 Warfarin Sodium (Warfarin Sod 5 Mg Tab) 5 mg PO SuMoWeFrSa@1600 [facility] Stop: 05/10/23 15:59 (3) COPD (chronic obstructive pulmonary disease) COPD type: unspecified COPD Qualified Code(s): J44.9 - Chronic obstructive pulmonary disease, unspecified
[2023-04-10] MEDS ORDERED: POTASSIUM PHOSPHATE 30 MMOL in SODIUM CHLORIDE 0.9% 500 ML IV ONE (14:00)
[2023-04-10] MEDS: LINEZOLID 600 MG/300 ML BAG IV SCH ×2 (14:18→22:09)
[2023-04-10] MEDS: cefTRIAXone SODIUM 2,000 MG in DEXTROSE 5% 50 ML IV SCH (14:18)
[2023-04-10 14:52] LABS: Base Excess ABG 15.3 mEq/L (-9-1.8); HCO3 ABG 41 mmol/L (19-24); Oxygen Saturation ABG 95.9 % (90-95); PCO2 ABG 51 mmHg (35-46); PO2 ABG 74 mmHg (80-95)
[2023-04-10 14:54] LABS: Allen Test Pos (Pos)
[2023-04-10 14:55] LABS: pH ABG 7.51 (7.35-7.45)
[2023-04-10] MEDS ORDERED: Nursing to Pharmacy Communication SCH (15:00)
[2023-04-10] MEDS: WARFARIN SOD 5 MG TAB PO SCH (15:04)
[2023-04-10] MEDS: THIAMINE HCL 100 MG TAB PO SCH (15:04)
[2023-04-10] MEDS: ATORVASTATIN 40 MG TAB PO SCH (20:49)
[2023-04-10] MEDS: AZITHROMYCIN 250 MG in DEXTROSE 5% 250 ML IV SCH (23:27)
[2023-04-10 23:30] LABS: iSTAT Allen Test Pass; iSTAT Art Bld Gas pCO2 Correct 45 mmHg (35-46); iSTAT Art Bld Gas pH Corrected 7.543 (7.35-7.45); iSTAT Arterial Blood Gas HCO3 39 meg/L (19-24); iSTAT Arterial Blood Gas pCO2 46 mmHg (35-46); iSTAT Arterial Blood Gas pH 7.53 (7.35-7.45); iSTAT Arterial Blood Gas pO2 48 mmHg (80-95); iSTAT Arterial Blood Gas pO2 C 46; iSTAT Carbon Dioxide > 40 mmol/L (24-31); iSTAT Hematocrit 42 % (42-52); iSTAT Hemoglobin 14.3 g/dl (14.0-18.0); iSTAT Potassium 3.1 mmol/L (3.3-5.0); iSTAT Site L Radial; iSTAT Sodium 135 mmol/L (135-144)
[2023-04-11] MEDS: PANTOprazole 40 MG TAB PO SCH (05:03)
[2023-04-11 07:11] LABS: Basophils # (auto) 0.07 K/uL (0-0.2); Basophils % (auto) 0.7 %; Eosinophils # (auto) 0.29 K/uL (0-0.50); Eosinophils % (auto) 2.9 %; Hematocrit (blood only) 42.3 % (42.0-52.0); Immature Granulocytes # (auto) 0.04 K/uL (0.01-0.20); Immature Granulocytes % (auto) 0.4 %; Lymphocytes # (auto) 3.16 K/uL (1.2-3.4); Lymphocytes % (auto) 31.1 %; Mean Corpuscular Hemoglobin 25.3 pg (25.0-34.0); Mean Corpuscular Hgb Conc 30.7 g/dL (32.0-36.0); Mean Corpuscular Volume 82.5 fL (80.0-100.0); Mean Platelet Volume 9.8 fL (9.4-12.4); Monocytes # (auto) 1.16 K/uL (0.11-0.59); Monocytes % (auto) 11.4 %; Neutrophils # (auto) 5.43 K/uL (1.40-6.50); Neutrophils % (auto) 53.5 %; Platelet Count 264 K/uL (130-400); RDW Coefficient of Variation 16.7 % (11.5-14.5); RDW Standard Deviation 49.5 fL (36.4-46.3); Red Blood Count 5.13 M/uL (4.70-6.10); White Blood Count 10.15 K/ul (4.8-10.8)
[2023-04-11] MEDS: FORMOTEROL 20 MCG/2 ML VIAL NEB SCH ×2 (07:21→18:56)
[2023-04-11] MEDS: BUDESONIDE 0.5 MG/2 ML VIAL (PULMICORT) NEB SCH ×2 (07:21→18:56)
[2023-04-11] MEDS: ALBUT/IPRATROP 3MG/0.5MG NEB 3 ML VIAL NEB SCH ×4 (07:22→18:57)
[2023-04-11 07:36] LABS: Calcium 9.9 mg/dl (8.6-10.3); Creatinine Clr Calc Pharmacy 155.7 ml/min; Est GFR (African American) 99.8 ml/min; Est GFR (Non-African American) 86.2 ml/min; Magnesium 1.9 mg/dl (1.7-2.4); Phosphorus 3.7 mg/dl (2.5-4.9); Potassium 3.2 mmol/L (3.5-5.1)
[2023-04-11 07:49] LABS: INR 1.1 (0.9-1.1); Prothrombin Time 11.9 Seconds (9.0-12.0)
[2023-04-11] MEDS ORDERED: POTASSIUM CHLORIDE CRTAB 20 MEQ TABCR PO STA (07:50)
--- NOTE | 2023-04-11 07:50 | Pulmonology Progress Note ---
Date of Service April 11, 2023 Assessment & Plan (1) COPD exacerbation: (2) SOB (shortness of breath): (3) (HFpEF) heart failure with preserved ejection fraction: (4) Acute on chronic respiratory failure with hypoxia and hypercapnia: (5) Wheezing: (6) Tobacco use: Plan Impression: 52-year-old morbidly obese male with multitude of medical issues admitted now with shortness of breath and some degree of bronchospasm on exam as well as compensated hypercarbic respiratory failure with hypoxemic respiratory failure. He was compliant with noninvasive positive pressure ventilation last evening and appears somewhat clinically better this morning. Recommendations: 1. Hypercarbic respiratory failure: Suspected degree of obesity hypoventilation syndrome. Continue nocturnal noninvasive positive pressure ventilation. 2. COPD: PFTs are not available in our system. Continue current bronchodilators and oral steroids. Bronchospasm resolved. Anticipate 5 days total of prednisone 20 mg a day. Given the patient's mental status issues, continuing with Perforomist and budesonide and DuoNebs appears to be the best approach as I do not think he would able to be compliant with metered-dose inhalers. Can transition azithromycin to oral if the patient remains awake enough to take oral medications 3. Patient's respiratory issues are largely complicated by body habitus. R ecommend aggressive attempts at weight loss. Nutritional consultation would be of benefit. Due to patient's limited mobility, caloric restriction will be required 4. History of DVT/PE: Patient is supratherapeutic. Coumadin management per primary service. No indication for repeat evaluation currently. 5. The patient's blood gas yesterday demonstrated metabolic alkalosis. This may be a post hypercapnic alkalosis. Do not think his mental status can be attributed to hypercarbic respiratory failure and additional evaluation per the patient's primary admitting service is recommended. Disposition per primary service. Would recommend the patient follow-up with [facility] pulmonary with whom he is established at discharge. Admission and Anticipated Discharge Date Admission Date: April 07, 2023 Subjective Patient seen and examined. EMR reviewed. The patient is more awake alert and conversant and interactive today. He used his BiPAP for about 6 hours last evening. He is not complaining of any chest tightness or respiratory difficulties. No cough or sputum production. He does not have much of an appetite yet. Review of Systems Review of Systems: All systems reviewed & are unremarkable except as noted in Subjective Physical Exam Constitutional: WD/WN, vitals as above no acute distress Respiratory: normal respiratory effort; no respiratory distress Auscultation: + diminished lung sounds Cardiovascular: RRR, no murmur, no edema (distant heart sounds ) Vessels: no JVD (unable to assess due to body habitus) Extremities: + edema (chronic lower extremity lymphedema) Gastrointestinal (Abdomen): Percussion/Palpation: abdomen soft; abdomen nontender Results & Data Results & Data Vital Signs (Past 12 Hours) Vital Signs Temp Pulse Pulse Resp BP Pulse Ox O2 Del Method 04/11/23 07:00 70 04/11/23 07:23 69 20 98 Nasal Cannula 04/11/23 06:10 86 L Room Air 04/11/23 06:17 94 Nasal Cannula 04/11/23 06:09 93 Room Air 04/11/23 03:58 36.6 C 71 20 179/83 H 97 BiPAP 04/11/23 02:37 65 20 99 04/10/23 23:31 82 04/10/23 23:23 36.6 C 70 18 147/82 H 96 BiPAP 04/10/23 23:14 20 99 04/10/23 22:15 83 16 98 04/10/23 21:11 Nasal Cannula 04/10/23 20:07 36.3 C L 79 20 143/92 H 97 Nasal Cannula O2 Flow Rate FiO2 04/11/23 07:00 04/11/23 07:23 3 04/11/23 06:10 04/11/23 06:17 4 04/11/23 06:09 04/11/23 03:58 04/11/23 02:37 40 04/10/23 23:31 04/10/23 23:23 04/10/23 23:14 50 04/10/23 22:15 50 04/10/23 21:11 4 04/10/23 20:07 5 Laboratory Results 04/11/23 06:46 04/11/23 06:46 04/07/23 04/08/23 04/08/23 21:36 00:24 10:18 POC pCO2 POC pO2 ABG pH 7.41 7.42 ABG pCO2 73 H 66 H ABG pO2 62 L 80 ABG HCO3 46 H 43 H ABG O2 Saturation 91.4 96.9 H ABG Base Excess 17.6 H 15.0 H VBG pH 7.37 VBG pCO2 87 H VBG pO2 17 VBG HCO3 50 VBG O2 Saturation < 60.0 VBG Base Excess 20.0 04/10/23 04/10/23 14:37 23:11 POC pCO2 46 POC pO2 48 L ABG pH 7.51 H* ABG pCO2 51 H ABG pO2 74 L ABG HCO3 41 H ABG O2 Saturation 95.9 H ABG Base Excess 15.3 H VBG pH VBG pCO2 VBG pO2 VBG HCO3 VBG O2 Saturation VBG Base Excess Diagnostic Findings No new imaging PG Care Time/CCT Total # of Minutes Spent Total Time Spent with Patient: Total time spent is greater than 50% in coordination of care (as documented) at patient's floor/unit and/or counseling patient: Coding Level of Care Code 24037 SUB INP/OBS CARE 2/35MIN Diagnoses COPD exacerbation J44.1 SOB (shortness of breath) R06.02 (HFpEF) heart failure with preserved ejection fraction I50.30 Acute on chronic respiratory failure with hypoxia and hypercapnia J96.21; J96.22 Wheezing R06.2 Tobacco use Z72.0
[2023-04-11] MEDS ORDERED: Heparin IV Adult Wt-Based Low-Dose *NO* Bolus Protocol IV ONE (08:31)
[2023-04-11] MEDS: INSULIN ASPART PER UNIT CHARGE SC SCH ×4 (08:48→21:10)
[2023-04-11] MEDS: LANTUS PER UNIT CHARGE SC SCH (08:48)
[2023-04-11] MEDS: MAGNESIUM OXIDE 400 MG TAB PO SCH (08:48)
[2023-04-11] MEDS: CHOLECALCIFEROL 5,000 UNITS 125 MCG TAB PO SCH (08:49)
[2023-04-11] MEDS: METOPROLOL SUCC 25MG EXT REL TAB PO SCH ×2 (08:49→21:09)
[2023-04-11] MEDS: ADVANCED PROBIOTIC 1250 MG CAPSULE PO SCH ×3 (08:49→21:10)
[2023-04-11] MEDS: FERROUS SULFATE 325 MG TAB PO SCH (08:49)
[2023-04-11] MEDS: ISOSORBIDE DINITRATE 10 MG TAB PO SCH (08:50)
[2023-04-11] MEDS: FAMOTIDINE 20 MG TAB PO SCH (08:50)
[2023-04-11] MEDS: FOLIC ACID 1 MG TAB PO SCH (08:50)
[2023-04-11] MEDS: predniSONE 20 MG TAB PO SCH (08:50)
[2023-04-11] MEDS: TAMSULOSIN HCL 0.4 MG CAP PO SCH (08:50)
[2023-04-11] MEDS: ASPIRIN 81 MG ECTAB PO SCH (08:50)
[2023-04-11] MEDS: DOCUSATE SODIUM 100 MG CAP PO SCH ×2 (08:51→21:10)
[2023-04-11] MEDS: DICLOFENAC SOD 1% GEL 100 GM TUBE EXT SCH ×2 (08:51→21:11)
[2023-04-11] MEDS: SENNA 8.6 MG TAB PO PRN (08:51)
[2023-04-11] MEDS: THIAMINE HCL 100 MG TAB PO SCH (08:51)
[2023-04-11] MEDS: FINASTERIDE 5 MG TAB PO SCH (08:51)
[2023-04-11] MEDS: FLUTICASONE PROPIONATE NA SPR 16 GM BTL SCH (08:52)
[2023-04-11] MEDS: NICOTINE 21 MG/24 HR TDSY TD SCH (08:52)
[2023-04-11] MEDS: POLYETHYLENE (MIRALAX) 17 GM PACK PO SCH (08:52)
[2023-04-11] MEDS ORDERED: buprenorphine HCL 8 MG SUBL SL SCH (10:15)
[2023-04-11] MEDS: HEPARIN SODIUM/DEXTROSE 25,000 UNITS/500 ML BAG IV SCH (11:32)
[2023-04-11] MEDS: LINEZOLID 600 MG/300 ML BAG IV SCH ×2 (11:32→21:12)
[2023-04-11] MEDS: cefTRIAXone SODIUM 2,000 MG in DEXTROSE 5% 50 ML IV SCH (13:57)
--- NOTE | 2023-04-11 14:21 | Hospitalist Progress Note ---
Date of Service April 11, 2023 Assessment & Plan (1) SOB (shortness of breath): Plan: Patient is a 52 yr male who presents with shortness of breath and also found to be altered mental status. Acute on chronic respiratory failure with hypoxia Secondary to COPD exacerbation and is complicated by other comorbid conditions like CHF, fluid overload and obesity, sleep apnea --CXR:No acute chest disease. Continue Solu-Medrol, nebs Continue supplemental oxygen as needed Currently on BiPAP Received 1 dose of ceftriaxone on admission and which will be continued from today again and has been on azithromycin Pulmonology consulted-appreciate input and recommendation Wean oxygen to maintain saturations 88-92 % given history of COPD Clinically not any better He has been refusing BiPAP and not been able to blow out CO2 which remains elevated He agreed to use BiPAP more to help with situation If he is not compliant he will have a palliative care evaluation down the line Used BiPAP for about 6 hours last evening and he has been feeling a lot better this morning and has been conversant We will continue current management and is strongly advised to use BiPAP as much as he can do His CO2 remains elevated at with carbon oxide level of 42 today Acute metabolic encephalopathy Likely multifactorial DD: Hypercarbia, meds, hypoxia, possible infection -CT Head:No acute intracranial hemorrhage, midline shift, or mass effect. -Hypercarbia noted on ABG --Drug screen negative --Normal ammonia, TSH -Could be secondary to complicated UTI Has UTI with Klebsiella pneumoniae and Enterococcus faecium VRE Empirically on IV Rocephin which will be continued until we get the further sensitivity report Hold any sedating medications ( hold Ativan, hydroxyzine, buprenorphine, gabapentin) He has been getting ceftriaxone since yesterday and he is allergic to daptomycin The case was discussed with ID specialist in [place], Dr. Alves and recommended to use linezolid Discussed with the pharmacist and linezolid was restarted for VRE and Cymbalta has been on hold from today that is 04/10/2023 Lloyd catheter changed and repeat urine culture has been sent -Has been getting Zyvox for VRE UTI which will be continued for about 7 to 10 days as per the ID specialist in [place] -We will continue Rocephin for Klebsiella pneumoniae urine as well -We will change Lloyd and reculture urine Hypokalemia Hypomagnesia Hyponatremia Replete electrolytes as needed Monitor -electrolytes have been normalized Potassium and phosphate will be replaced Electrolytes will be monitored Supratherapeutic INR No obvious bleeding issues Coumadin held Monitor INR-has been low at 1.2 as of 04/10/2023 Will restart Coumadin and monitor INR INR has been subtherapeutic-IV heparin has been added from today and will continue Coumadin till INR is therapeutic MAHAMED Cr 1.4 Held Lasix and spironolactone Received gentle IV fluids Monitor renal function Avoid Nephrotoxic agents as able Creatinine has been EYES: Pupils round equal and react to light, extraocular movements full, no injection. Chronic diastolic CHF Clinically dehydrated Hold diuretics for now Monitor volume status No signs and or symptoms of fluid overload . DM II HbA1C: 7.8 Continue insulin while hospitalized Monitor blood glucose levels Glycemic pharmacy consulted Abnormal EKG Negative cardiac enzymes Repeat EKG no signs of acute ischemia H/O PE Coumadin on hold due to supratherapeutic INR Chronic opioid use Chronic pain Anxiety Hold buprenorphine, gabapentin, Ativan, and hydroxyzine for now Hypertension Continue metoprolol DVT Px: INR supratherapeutic Code Status Full code (2) Acute UTI: (3) COPD (chronic obstructive pulmonary disease): (4) Hypokalemia: (5) Hypomagnesemia: Admission and Anticipated Discharge Date Admission Date: April 07, 2023 Subjective 04/09/2023 The patient was seen and examined in telemetry unit He has been very drowsy since this morning Denies any symptoms but has been having difficulty in concentrating with communication No fever and or chills and has been requiring 6 L to maintain saturation 04/10/2023 The patient was seen and examined in telemetry unit He has been more alert and awake today but he still remains very drowsy Denies any significant symptoms of shortness of breath, pain and/or palpitation No fever and or chills 04/11/2023 The patient was seen and examined in telemetry unit He is much better today, alert awake and more conversant Generally weak but denies any other significant symptoms Review of Systems Review of Systems: All systems reviewed and are unremarkable except as noted below Neurologic: Generally weak and no more drowsiness Physical Exam Physical Exam: Sitting at the edge of the bed without any acute distress Constitutional: well developed, well nourished, + ill appearing and + morbidly obese Eyes: PERRL, conjunctivae normal, anicteric sclerae ENMT: external ear and nose normal, oropharynx normal Neck: trachea midline, no thyromegaly Respiratory: no respiratory distress Auscultation: + diminished lung sounds and + crackles (Bibasilar crackles) Cardiovascular: Rate/Rhythm: regular rate and regular rhythm; not tachycardic Heart Sounds: normal S1 and normal S2; no murmur Extremities: + edema (Trace to 1+ edema bilaterally) Gastrointestinal (Abdomen): Inspection/Auscultation: + abdomen distended and normal bowel sounds Percussion/Palpation: abdomen soft; abdomen nontender Musculoskeletal: No acute arthritis involving any of the joint Neurologic: Alert, 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. Generally weak Lymphatic: no cervical or axillary lymphadenopathy Results & Data Results & Data Vital Signs (Past 12 Hours) Vital Signs Temp Pulse Pulse Resp BP Pulse Ox O2 Del Method 04/11/23 11:44 36.5 C 83 18 92 Nasal Cannula 04/11/23 11:00 95 Room Air 04/11/23 10:54 73 16 90 Nasal Cannula 04/11/23 07:53 36.4 C L 71 18 135/73 95 Nasal Cannula 04/11/23 07:00 70 04/11/23 07:23 69 20 98 Nasal Cannula 04/11/23 06:10 86 L Room Air 04/11/23 06:17 94 Nasal Cannula 04/11/23 06:09 93 Room Air 04/11/23 03:58 36.6 C 71 20 179/83 H 97 BiPAP 04/11/23 02:37 65 20 99 O2 Flow Rate FiO2 04/11/23 11:44 3 04/11/23 11:00 04/11/23 10:54 3 04/11/23 07:53 3 04/11/23 07:00 04/11/23 07:23 3 04/11/23 06:10 04/11/23 06:17 4 04/11/23 06:09 04/11/23 03:58 04/11/23 02:37 40 Laboratory Results Short CBC 04/11/23 Range/Units 06:46 WBC 10.15 (4.8-10.8) K/ul Hgb 13.0 L (14.0-18.0) g/dl Hct 42.3 (42.0-52.0) % Plt Count 264 (130-400) K/uL [facility] 04/11/23 06:46 Sodium 139 Potassium 3.2 L Chloride 93 L Carbon Dioxide 42 H* BUN 16 Creatinine 1.00 Glucose 142 H Calcium 9.9 Medications Administered Current Inpatient Medications Acetaminophen (Acetaminophen 325 Mg Tab) 650 mg PO Q4H PRN PRN Reason: Pain or Fever Stop: 05/07/23 23:43 Albuterol (Albuterol Hfa 8 Gm Inhaler) 2 puffs INH Q4 PRN PRN Reason: Dyspnea Stop: 05/07/23 23:43 Albuterol (Albut/Ipratrop 3mg/0.5mg Neb 3 Ml Vial) 3 ml NEB QIDR [facility]; Protocol Stop: 05/08/23 06:59 Last Admin: 04/11/23 10:51 Dose: 3 ml Aspirin (Aspirin 81 Mg Ectab) 81 mg PO QAM [facility] Stop: 05/08/23 08:59 Last Admin: 04/11/23 08:50 Dose: 81 mg Atorvastatin Calcium (Atorvastatin 40 Mg Tab) 80 mg PO QPM [facility] Stop: 05/08/23 20:59 Last Admin: 04/10/23 20:49 Dose: 80 mg Benzonatate (Benzonatate 100 Mg Capsule) 100 mg PO TID PRN PRN Reason: cough Stop: 05/07/23 23:43 Last Admin: 04/08/23 23:28 Dose: 100 mg Budesonide (Budesonide 0.5 Mg/2 Ml Vial (Pulmicort)) 0.5 mg NEB BIDR [facility] Stop: 05/08/23 18:59 Last Admin: 04/11/23 07:21 Dose: 0.5 mg Buprenorphine HCl (Buprenorphine Hcl 8 Mg Subl) 20 mg SL DAILY [facility] Stop: 05/11/23 10:14 Cyclobenzaprine HCl (Cyclobenzaprine Hcl 10 Mg Tab) 10 mg PO BID PRN PRN Reason: Muscle Spasm Stop: 05/07/23 23:43 Dextrose (Dextrose 50% 50 Ml Syringe) 25 - 50 ml IV UD PRN; Protocol PRN Reason: Hypoglycemia Protocol Stop: 05/07/23 23:43 Diclofenac Sodium (Diclofenac Sod 1% Gel 100 Gm Tube) 2 gm EXT BID [facility]; Protocol Stop: 05/08/23 08:59 Last Admin: 04/11/23 08:51 Dose: 2 gm Docusate Sodium (Docusate Sodium 100 Mg Cap) 100 mg PO BID [facility] Stop: 05/08/23 08:59 Last Admin: 04/11/23 08:51 Dose: Not Given Duloxetine HCl (Duloxetine Hcl 60 Mg Cap) 60 mg PO DAILY [facility] Stop: 05/08/23 08:59 Last Admin: 04/10/23 09:17 Dose: 60 mg Famotidine (Famotidine 20 Mg Tab) 20 mg PO DAILY [facility] Stop: 05/08/23 08:59 Last Admin: 04/11/23 08:50 Dose: 20 mg Ferrous Sulfate (Ferrous Sulfate 325 Mg Tab) 325 mg PO QAM [facility] Stop: 05/08/23 08:59 Last Admin: 04/11/23 08:49 Dose: 325 mg Finasteride (Finasteride 5 Mg Tab) 5 mg PO QAM [facility] Stop: 05/08/23 08:59 Last Admin: 04/11/23 08:51 Dose: 5 mg Fluticasone Propionate (Fluticasone Propionate Na Spr 16 Gm Btl) 2 sprays NA DAILY [facility] Stop: 05/08/23 08:59 Last Admin: 04/11/23 08:52 Dose: Not Given Folic Acid (Folic Acid 1 Mg Tab) 1 mg PO QAM [facility] Stop: 05/08/23 08:59 Last Admin: 04/11/23 08:50 Dose: 1 mg Formoterol Fumarate (Formoterol 20 Mcg/2 Ml Vial) 20 mcg NEB BIDR [facility] Stop: 05/08/23 18:59 Last Admin: 04/11/23 07:21 Dose: 20 mcg Glucagon (Glucagon For Inj 1 Mg Vial) 1 mg SQ UD PRN; Protocol PRN Reason: Hypoglycemia Protocol Stop: 05/07/23 23:43 Glucose (Glucose 10 Tab/Tube) 4 - 8 tab PO UD PRN; Protocol PRN Reason: Hypoglycemia Treatment Stop: 05/07/23 23:43 Glucose (Glucose 40% Gel 15 Gm Tube) 15 - 30 gm PO UD PRN; Protocol PRN Reason: Hypoglycemia Protocol Stop: 05/07/23 23:43 Guaifenesin/Dextromethorphan (Guaifenesin/Dextrom Syrup 100mg/10mg 5ml Udc) 5 ml PO Q6H PRN PRN Reason: cough Stop: 05/07/23 23:43 Azithromycin 250 mg/ Dextrose 252.5 mls @ 125 mls/hr IV Q24H [facility] Stop: 04/15/23 21:59 Last Infusion: 04/11/23 01:38 Dose: Infused Ceftriaxone Sodium 2,000 mg/ (Dextrose) 70 mls @ 100 mls/hr IV Q24H [facility]; Protoc ol Stop: 04/19/23 12:29 Last Admin: 04/11/23 13:57 Dose: 100 mls/hr Linezolid (Zyvox) 600 mg in 300 mls @ 200 mls/hr IV Q12H [facility] Stop: 04/20/23 10:44 Last Infusion: 04/11/23 13:44 Dose: Infused Heparin Sodium/Dextrose (Heparin Sodium/Dextrose) 25,000 units in 500 mls @ 20 mls/hr IV .Q24H [facility]; Protocol Stop: 05/11/23 08:44 Last Admin: 04/11/23 11:32 Dose: 1,000 units/hr, 20 mls/hr Insulin Aspart (Insulin Aspart Per Unit Charge) 0 units SC ACHS [facility] Stop: 05/10/23 16:29 Last Admin: 04/11/23 12:46 Dose: Not Given Insulin Glargine (Lantus Per Unit Charge) 0 units SC HS [facility]; Protocol Stop: 05/08/23 20:59 Last Admin: 04/10/23 20:18 Dose: Not Given Insulin Glargine (Lantus Per Unit Charge) 25 units SC DAILY [facility]; Protocol Stop: 05/09/23 09:14 Last Admin: 04/11/23 08:48 Dose: 25 units Isosorbide Dinitrate (Isosorbide Dinitrate 10 Mg Tab) 30 mg PO DAILY [facility] Stop: 05/08/23 08:59 Last Admin: 04/11/23 08:50 Dose: 30 mg Lactobacillus Acidophilus (Advanced Probiotic 1250 Mg Capsule) 2 cap PO TID [facility] Stop: 05/08/23 08:59 Last Admin: 04/11/23 13:58 Dose: Not Given Magnesium Oxide (Magnesium Oxide 400 Mg Tab) 400 mg PO DAILY [facility] Stop: 05/08/23 08:59 Last Admin: 04/11/23 08:48 Dose: 400 mg Metoprolol Succinate (Metoprolol Succ 25mg Ext Rel Tab) 75 mg PO BID [facility] Stop: 05/08/23 08:59 Last Admin: 04/11/23 08:49 Dose: 75 mg Miscellaneous (Remove Nicoderm Patch) 1 each N/A DAILY@0859 [facility] Stop: 05/08/23 08:58 Last Admin: 04/11/23 08:51 Dose: Not Given Miscellaneous (Carbohydrates For Hypoglycemia ) 15 - 30 gm PO UD PRN PRN Reason: Hypoglycemia Protocol Stop: 05/07/23 23:43 Miscellaneous Information (Pharmacy Glycemic Mgmt Consult) 1 each N/A UD PRN PRN Reason: Consult Stop: 05/07/23 23:43 Nicotine (Nicotine 21 Mg/24 Hr Tdsy) 21 mg TD DAILY [facility] Stop: 05/08/23 08:59 Last Admin: 04/11/23 08:52 Dose: Not Given Nitroglycerin (Nitroglycerin Sl 0.4 Mg/Tab Tab) 0.4 mg SL Q5M PRN PRN Reason: Chest Pain Stop: 05/07/23 23:43 Nystatin (Nystatin Powder 15gm Btl) 1 appln EXT TID PRN PRN Reason: Skin Irritation Stop: 05/07/23 23:43 Pantoprazole Sodium (Pantoprazole 40 Mg Tab) 40 mg PO DAILYBB [facility] Stop: 05/08/23 06:29 Last Admin: 04/11/23 05:03 Dose: Not Given Polyethylene Glycol (Polyethylene (Miralax) 17 Gm Pack) 17 gm PO QAM [facility] Stop: 05/08/23 08:59 Last Admin: 04/11/23 08:52 Dose: Not Given Potassium Chloride (Potassium Chloride Crtab 20 Meq Tabcr) 40 meq PO BID [facility] Stop: 05/08/23 08:59 Prednisone (Prednisone 20 Mg Tab) 20 mg PO DAILY [facility] Stop: 05/10/23 08:59 Last Admin: 04/11/23 08:50 Dose: 20 mg Promethazine HCl (Promethazine Hcl 25 Mg Tab) 12.5 mg PO BID PRN PRN Reason: nausea and vomiting Stop: 05/07/23 23:43 Sennosides (Senna 8.6 Mg Tab) 8.6 mg PO DAILY PRN PRN Reason: Constipation Stop: 05/07/23 23:43 Last Admin: 04/11/23 08:51 Dose: 8.6 mg Tamsulosin HCl (Tamsulosin Hcl 0.4 Mg Cap) 0.8 mg PO [facility] Stop: 05/08/23 08:59 Last Admin: 04/11/23 08:50 Dose: 0.8 mg Thiamine HCl (Thiamine Hcl 100 Mg Tab) 200 mg PO [facility] Stop: 05/10/23 14:14 Last Admin: 04/11/23 08:51 Dose: 200 mg Vitamin D (Cholecalciferol 5,000 Units 125 Mcg Tab) 5,000 units PO [facility] Stop: 05/08/23 08:59 Last Admin: 04/11/23 08:49 Dose: 5,000 units Warfarin Sodium (Warfarin Sod 2.5 Mg Tab) 2.5 mg PO TuTh@1600 [facility] Stop: 05/13/23 15:59 Warfarin Sodium (Warfarin Sod 5 Mg Tab) 5 mg PO SuMoWeFrSa@1600 [facility] Stop: 05/10/23 15:59 Last Admin: 04/10/23 15:04 Dose: 5 mg (3) COPD (chronic obstructive pulmonary disease) COPD type: unspecified COPD Qualified Code(s): J44.9 - Chronic obstructive pulmonary disease, unspecified
[2023-04-11] MEDS: WARFARIN SOD 5 MG TAB PO SCH (18:11)
[2023-04-11 19:53] LABS: Partial Thromboplastin Time 26.8 Seconds (21.0-31.0)
[2023-04-11] MEDS ORDERED: HEPARIN IV BOLUS 4,500 UNITS in SYRINGE 0 ML IV ONE (19:55)
[2023-04-11] MEDS: ATORVASTATIN 40 MG TAB PO SCH (21:10)
[2023-04-11] MEDS: CYCLOBENZAPRINE HCL 10 MG TAB PO PRN (21:10)
[2023-04-11] MEDS: AZITHROMYCIN 250 MG in DEXTROSE 5% 250 ML IV SCH (23:00)
[2023-04-12 03:29] LABS: Basophils # (auto) 0.08 K/uL (0-0.2); Basophils % (auto) 0.6 %; Eosinophils # (auto) 0.16 K/uL (0-0.50); Eosinophils % (auto) 1.2 %; Hemoglobin 13.2 g/dl (14.0-18.0); Immature Granulocytes # (auto) 0.07 K/uL (0.01-0.20); Immature Granulocytes % (auto) 0.5 %; Lymphocytes # (auto) 3.82 K/uL (1.2-3.4); Lymphocytes % (auto) 28.7 %; Mean Corpuscular Hemoglobin 25.4 pg (25.0-34.0); Mean Corpuscular Hgb Conc 31.4 g/dL (32.0-36.0); Mean Corpuscular Volume 80.8 fL (80.0-100.0); Mean Platelet Volume 10.1 fL (9.4-12.4); Monocytes # (auto) 0.94 K/uL (0.11-0.59); Monocytes % (auto) 7.1 %; Neutrophils # (auto) 8.25 K/uL (1.40-6.50); Neutrophils % (auto) 61.9 %; Platelet Count 266 K/uL (130-400); RDW Coefficient of Variation 16.6 % (11.5-14.5); RDW Standard Deviation 47.9 fL (36.4-46.3); White Blood Count 13.32 K/ul (4.8-10.8)
[2023-04-12 03:46] LABS: BUN Creatinine Ratio 11.7 (10-20); Calcium 10.2 mg/dl (8.6-10.3); Creatinine Clr Calc Pharmacy 151.1 ml/min; Est GFR (African American) 96.3 ml/min; Est GFR (Non-African American) 83.1 ml/min; Magnesium 1.7 mg/dl (1.7-2.4); Phosphorus 2.7 mg/dl (2.5-4.9); Potassium 3.2 mmol/L (3.5-5.1)
[2023-04-12 03:59] LABS: Partial Thromboplastin Ratio 1.2; Prothrombin Time 11.4 Seconds (9.0-12.0)
[2023-04-12] MEDS ORDERED: HEPARIN SOD (PORCINE) 1000 UNIT/ML IV ONE (04:15)
[2023-04-12] MEDS: PANTOprazole 40 MG TAB PO SCH (04:15)
[2023-04-12] MEDS: HEPARIN SODIUM/DEXTROSE 25,000 UNITS/500 ML BAG IV SCH ×2 (04:17→19:36)
[2023-04-12] MEDS: ALBUT/IPRATROP 3MG/0.5MG NEB 3 ML VIAL NEB SCH ×4 (06:49→19:19)
[2023-04-12] MEDS: FORMOTEROL 20 MCG/2 ML VIAL NEB SCH ×2 (06:49→19:19)
[2023-04-12] MEDS: BUDESONIDE 0.5 MG/2 ML VIAL (PULMICORT) NEB SCH ×2 (06:49→19:19)
[2023-04-12] MEDS ORDERED: POTASSIUM CHLORIDE CRTAB 20 MEQ TABCR PO STA (08:04)
[2023-04-12] MEDS: TAMSULOSIN HCL 0.4 MG CAP PO SCH (08:43)
[2023-04-12] MEDS: METOPROLOL SUCC 25MG EXT REL TAB PO SCH ×2 (08:43→20:51)
[2023-04-12] MEDS: THIAMINE HCL 100 MG TAB PO SCH (08:43)
[2023-04-12] MEDS: FOLIC ACID 1 MG TAB PO SCH (08:44)
[2023-04-12] MEDS: FERROUS SULFATE 325 MG TAB PO SCH (08:44)
[2023-04-12] MEDS: FINASTERIDE 5 MG TAB PO SCH (08:44)
[2023-04-12] MEDS: FAMOTIDINE 20 MG TAB PO SCH (08:44)
[2023-04-12] MEDS: predniSONE 20 MG TAB PO SCH (08:44)
[2023-04-12] MEDS: ADVANCED PROBIOTIC 1250 MG CAPSULE PO SCH ×3 (08:45→20:48)
[2023-04-12] MEDS: CHOLECALCIFEROL 5,000 UNITS 125 MCG TAB PO SCH (08:45)
[2023-04-12] MEDS: ISOSORBIDE DINITRATE 10 MG TAB PO SCH (08:45)
[2023-04-12] MEDS: SENNA 8.6 MG TAB PO PRN (08:45)
[2023-04-12] MEDS: ASPIRIN 81 MG ECTAB PO SCH (08:46)
[2023-04-12] MEDS: NICOTINE 21 MG/24 HR TDSY TD SCH (08:47)
[2023-04-12] MEDS: FLUTICASONE PROPIONATE NA SPR 16 GM BTL SCH (08:48)
[2023-04-12] MEDS: MAGNESIUM OXIDE 400 MG TAB PO SCH (09:01)
[2023-04-12] MEDS: DOCUSATE SODIUM 100 MG CAP PO SCH ×2 (09:01→21:28)
[2023-04-12] MEDS: POLYETHYLENE (MIRALAX) 17 GM PACK PO SCH (09:02)
[2023-04-12] MEDS: INSULIN ASPART PER UNIT CHARGE SC SCH ×4 (09:02→21:12)
[2023-04-12] MEDS: LANTUS PER UNIT CHARGE SC SCH (09:02)
[2023-04-12] MEDS: DICLOFENAC SOD 1% GEL 100 GM TUBE EXT SCH ×2 (09:04→20:50)
[2023-04-12] MEDS ORDERED: ACETAMINOPHEN 1,000 MG/100 ML VIAL IV STA ×2 (10:43→21:34)
[2023-04-12 11:15] LABS: Partial Thromboplastin Ratio 1.5
[2023-04-12 11:19] LABS: Partial Thromboplastin Time 41.2 Seconds (21.0-31.0)
[2023-04-12] MEDS: buprenorphine HCL 8 MG SUBL SL SCH ×2 (11:24→20:46)
[2023-04-12] MEDS: LINEZOLID 600 MG/300 ML BAG IV SCH ×2 (11:25→23:20)
--- NOTE | 2023-04-12 12:19 | Pharmacy Report ---
Pharmacy Glycemic Short Note 2 - Date of Service April 12, 2023 - Glycemic Short BSG Results (Last 24 hours): 04/11/23 04/11/23 04/12/23 16:28 20:11 03:12 Glucose 135 H POC Glucose 212 H 173 H 04/12/23 04/12/23 07:16 11:22 Glucose POC Glucose 147 H 109 H OUTPATIENT ANTIDIABETIC REGIMEN: * Lantus 20 units BID * Novolog 10 units TIDM * HbA1c: 7.8% (04/08/23) ASSESSMENT: 04/12: * Patient received 52 units of insulin yesterday, 25 of which were basal. BSGs were: [phone]. Fasting BSG remains stable this morning at 135 mg/dL. * Patient was transitioned to PO prednisone 20mg 2 days ago. Patient resumed a diet yesterday, will monitor if further changes needed due to this. * Continue current Lantus and NovoLog. Will continue to trend elevation in dinner BSG and will plan to adjust tomorrow if trend continues. 04/09: * Bill received 71 units of insulin yesterday, 45 units basal + 26 units bolus. BSGs were: [phone] mg/dL. * Ceftriaxone has been discontinued. Remains on Azithromycin. Remains NPO at this time. IV Methylprednisolone was discontinued after the 40 mg dose was given this AM. Will be started on Prednisone 20 mg PO daily tomorrow morning. That will be a 60% reduction in steroid dosing. * Will split Lantus dosing BID to match home regimen. Fasting was significantly elevated at 221 mg/dL this AM. Despite steroids being decreased, will still try to provide the same total daily dose of 45 units today in hopes that it improves fasting BSG to goal range. * No change to Novolog. 04/08: * 52 yo M well-known to our glycemic service admitted 04/07 w AMS, COPD ex acerbation. Currently NPO and on steroids * Prior admissions while on similar dose of steroids reviewed - patient receives about 80 units Lantus daily those admissions, but also ordered a diet. Will approximately halve that dose given NPO status. Additional Lantus tonight if patient ends up being ordered a diet * Will utilize Novolog regimen similar to previous admissions while on similar steroid dose, but slightly looser given NPO status PLAN FOR INPATIENT GLYCEMIC CONTROL: * Basal insulin * Lantus 25 units SC AM * Bolus insulin * NovoLog per scale ACHS or Q6hrs while NPO * Goal Range: Low 110 mg/dL - High 140 mg/dL * Correction Factor: 10 mg/dL/unit * Nutritional / Prandial insulin per carb ratio of 1 unit per 3 grams CHO consumed
[2023-04-12] MEDS: buprenorphine HCL 2 MG SUBL SL SCH (14:24)
[2023-04-12] MEDS: cefTRIAXone SODIUM 2,000 MG in DEXTROSE 5% 50 ML IV SCH (14:24)
--- NOTE | 2023-04-12 15:26 | Hospitalist Progress Note ---
Date of Service April 12, 2023 Assessment & Plan (1) SOB (shortness of breath): Plan: Patient is a 52 yr male who presents with shortness of breath and also found to be altered mental status. Acute on chronic respiratory failure with hypoxia Secondary to COPD exacerbation and is complicated by other comorbid conditions like CHF, fluid overload and obesity, sleep apnea --CXR:No acute chest disease. Continue Solu-Medrol, nebs Continue supplemental oxygen as needed Currently on BiPAP Received 1 dose of ceftriaxone on admission and which will be continued from today again and has been on azithromycin Pulmonology consulted-appreciate input and recommendation Wean oxygen to maintain saturations 88-92 % given history of COPD Clinically not any better He has been refusing BiPAP and not been able to blow out CO2 which remains elevated He agreed to use BiPAP more to help with situation If he is not compliant he will have a palliative care evaluation down the line Used BiPAP for about 6 hours last evening and he has been feeling a lot better this morning and has been conversant We will continue current management and is strongly advised to use BiPAP as much as he can do His CO2 remains elevated at with carbon oxide level of 42 today No shortness of breath at rest and has been requiring 2 L to maintain saturation Acute metabolic encephalopathy Likely multifactorial DD: Hypercarbia, meds, hypoxia, possible infection -CT Head:No acute intracranial hemorrhage, midline shift, or mass effect. -Hypercarbia noted on ABG --Drug screen negative --Normal ammonia, TSH -Could be secondary to complicated UTI Mental status has been normalized Has UTI with Klebsiella pneumoniae and Enterococcus faecium VRE Empirically on IV Rocephin which will be continued until we get the further sensitivity report Hold any sedating medications ( hold Ativan, hydroxyzine, buprenorphine, gabapentin) He has been getting ceftriaxone since yesterday and he is allergic to daptomycin The case was discussed with ID specialist in [place], Dr. Alves and recommended to use linezolid Discussed with the pharmacist and linezolid was restarted for VRE and Cymbalta has been on hold from today that is 04/10/2023 Lloyd catheter changed and repeat urine culture has been sent -Has been getting Zyvox for VRE UTI which will be continued for about 7 to 10 days as per the ID specialist in [place] -We will continue Rocephin for Klebsiella pneumoniae urine as well -We will change Lloyd and reculture urine-repeat urine culture has been sent -Clinically much better and the current antibiotic will be continued Hypokalemia Hypomagnesia Hyponatremia Replete electrolytes as needed Monitor -electrolytes have been normalized Potassium and phosphate will be replaced Electrolytes will be monitored Supratherapeutic INR No obvious bleeding issues Coumadin held Monitor INR-has been low at 1.2 as of 04/10/2023 Will restart Coumadin and monitor INR INR has been subtherapeutic-IV heparin has been added from today and will continue Coumadin till INR is therapeutic INR remains subtherapeutic likely secondary to interaction with antibiotics Will increase the dose of warfarin 7.5 mg daily-monitor INR MAHAMED Cr 1.4 Held Lasix and spironolactone Received gentle IV fluids Monitor renal function Avoid Nephrotoxic agents as able Creatinine has been EYES: Pupils round equal and react to light, extraocular movements full, no injection. Chronic diastolic CHF Clinically dehydrated Hold diuretics for now Monitor volume status No signs and or symptoms of fluid overload We will restart diuretics . DM II HbA1C: 7.8 Continue insulin while hospitalized Monitor blood glucose levels Glycemic pharmacy consulted Abnormal EKG Negative cardiac enzymes Repeat EKG no signs of acute ischemia H/O PE Coumadin on hold due to supratherapeutic INR Chronic opioid use Chronic pain Anxiety Hold buprenorphine, gabapentin, Ativan, and hydroxyzine for now Hypertension Continue metoprolol DVT Px: INR supratherapeutic Code Status Full code (2) Acute UTI: (3) COPD (chronic obstructive pulmonary disease): (4) Hypokalemia: (5) Hypomagnesemia: Admission and Anticipated Discharge Date Admission Date: April 07, 2023 Subjective 04/09/2023 The patient was seen and examined in telemetry unit He has been very drowsy since this morning Denies any symptoms but has been having difficulty in concentrating with communication No fever and or chills and has been requiring 6 L to maintain saturation 04/10/2023 The patient was seen and examined in telemetry unit He has been more alert and awake today but he still remains very drowsy Denies any significant symptoms of shortness of breath, pain and/or palpitation No fever and or chills 04/11/2023 The patient was seen and examined in telemetry unit He is much better today, alert awake and more conversant Generally weak but denies any other significant symptoms 04/12/2023 The patient was seen and examined in telemetry unit He is out of bed on a chair and asking for more pain medications and more food He has been feeling much better and denies any significant symptoms Review of Systems Review of Systems: All systems reviewed and are unremarkable except as noted below Neurologic: Generally weak and no more drowsiness Physical Exam Physical Exam: Sitting at the edge of the bed without any acute distress Constitutional: well developed, well nourished, + ill appearing and + morbidly obese Eyes: PERRL, conjunctivae normal, anicteric sclerae ENMT: external ear and nose normal, oropharynx normal Neck: trachea midline, no thyromegaly Respiratory: no respiratory distress Auscultation: + diminished lung sounds and + crackles (Bibasilar crackles) Cardiovascular: Rate/Rhythm: regular rate and regular rhythm; not tachycardic Heart Sounds: normal S1 and normal S2; no murmur Extremities: + edema (Trace to 1+ edema bilaterally) Gastrointestinal (Abdomen): Inspection/Auscultation: + abdomen distended and normal bowel sounds Percussion/Palpation: abdomen soft; abdomen nontender Musculoskeletal: No acute arthritis involving any joint Neurologic: Alert, 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. Generally weak but no focal neurodeficit Lymphatic: no cervical or axillary lymphadenopathy Results & Data Results & Data Vital Signs (Past 12 Hours) Vital Signs Temp Pulse Resp BP Pulse Ox O2 Del Method O2 Flow Rate 04/12/23 10:40 36.7 C 92 H 18 112/70 92 Nasal Cannula 2 04/12/23 10:43 83 18 96 Nasal Cannula 2 04/12/23 07:19 36.4 C L 84 18 111/65 94 Nasal Cannula 2 04/12/23 06:49 86 18 99 Nasal Cannula 4 Laboratory Results Short CBC 04/12/23 Range/Units 03:12 WBC 13.32 H (4.8-10.8) K/ul Hgb 13.2 L (14.0-18.0) g/dl Hct 42.0 (42.0-52.0) % Plt Count 266 (130-400) K/uL BMP 04/12/23 03:12 Sodium 137 Potassium 3.2 L Chloride 93 L Carbon Dioxide 39 H BUN 12 Creatinine 1.03 Glucose 135 H Calcium 10.2 Medications Administered Current Inpatient Medications Acetaminophen (Acetaminophen 325 Mg Tab) 650 mg PO Q4H PRN PRN Reason: Pain or Fever Stop: 05/07/23 23:43 Last Admin: 04/11/23 21:10 Dose: 650 mg Albuterol (Albuterol Hfa 8 Gm Inhaler) 2 puffs INH Q4 PRN PRN Reason: Dyspnea Stop: 05/07/23 23:43 Albuterol (Albut/Ipratrop 3mg/0.5mg Neb 3 Ml Vial) 3 ml NEB QIDR [facility]; Protocol Stop: 05/08/23 06:59 Last Admin: 04/12/23 10:43 Dose: 3 ml Aspirin (Aspirin 81 Mg Ectab) 81 mg PO QAM [facility] Stop: 05/08/23 08:59 Last Admin: 04/12/23 08:46 Dose: 81 mg Atorvastatin Calcium (Atorvastatin 40 Mg Tab) 80 mg PO QPM [facility] Stop: 05/08/23 20:59 Last Admin: 04/11/23 21:10 Dose: 80 mg Benzonatate (Benzonatate 100 Mg Capsule) 100 mg PO TID PRN PRN Reason: cough Stop: 05/07/23 23:43 Last Admin: 04/08/23 23:28 Dose: 100 mg Budesonide (Budesonide 0.5 Mg/2 Ml Vial (Pulmicort)) 0.5 mg NEB BIDR [facility] Stop: 05/08/23 18:59 Last Admin: 04/12/23 06:49 Dose: 0.5 mg Buprenorphine HCl (Buprenorphine Hcl 8 Mg Subl) 8 mg SL BID [facility] Stop: 05/12/23 10:44 Last Admin: 04/12/23 11:24 Dose: 8 mg Buprenorphine HCl (Buprenorphine Hcl 2 Mg Subl) 4 mg SL DAILY@1200 [facility] Stop: 05/12/23 11:59 Last Admin: 04/12/23 14:24 Dose: 4 mg Cyclobenzaprine HCl (Cyclobenzaprine Hcl 10 Mg Tab) 10 mg PO BID PRN PRN Reason: Muscle Spasm Stop: 05/07/23 23:43 Last Admin: 04/11/23 21:10 Dose: 10 mg Dextrose (Dextrose 50% 50 Ml Syringe) 25 - 50 ml IV UD PRN; Protocol PRN Reason: Hypoglycemia Protocol Stop: 05/07/23 23:43 Diclofenac Sodium (Diclofenac Sod 1% Gel 100 Gm Tube) 2 gm EXT BID [facility]; Protocol Stop: 05/08/23 08:59 Last Admin: 04/12/23 09:04 Dose: 2 gm Docusate Sodium (Docusate Sodium 100 Mg Cap) 100 mg PO BID [facility] Stop: 05/08/23 08:59 Last Admin: 04/12/23 09:01 Dose: 100 mg Duloxetine HCl (Duloxetine Hcl 60 Mg Cap) 60 mg PO DAILY [facility] Stop: 05/08/23 08:59 Last Admin: 04/10/23 09:17 Dose: 60 mg Famotidine (Famotidine 20 Mg Tab) 20 mg PO DAILY [facility] Stop: 05/08/23 08:59 Last Admin: 04/12/23 08:44 Dose: 20 mg Ferrous Sulfate (Ferrous Sulfate 325 Mg Tab) 325 mg PO QAM [facility] Stop: 05/08/23 08:59 Last Admin: 04/12/23 08:44 Dose: 325 mg Finasteride (Finasteride 5 Mg Tab) 5 mg PO QAM [facility] Stop: 05/08/23 08:59 Last Admin: 04/12/23 08:44 Dose: 5 mg Fluticasone Propionate (Fluticasone Propionate Na Spr 16 Gm Btl) 2 sprays NA DAILY [facility] Stop: 05/08/23 08:59 Last Admin: 04/12/23 08:48 Dose: 2 sprays Folic Acid (Folic Acid 1 Mg Tab) 1 mg PO QAM [facility] Stop: 05/08/23 08:59 Last Admin: 04/12/23 08:44 Dose: 1 mg Formoterol Fumarate (Formoterol 20 Mcg/2 Ml Vial) 20 mcg NEB BIDR [facility] Stop: 05/08/23 18:59 Last Admin: 04/12/23 06:49 Dose: 20 mcg Glucagon (Glucagon For Inj 1 Mg Vial) 1 mg SQ UD PRN; Protocol PRN Reason: Hypoglycemia Protocol Stop: 05/07/23 23:43 Glucose (Glucose 10 Tab/Tube) 4 - 8 tab PO UD PRN; Protocol PRN Reason: Hypoglycemia Treatment Stop: 05/07/23 23:43 Glucose (Glucose 40% Gel 15 Gm Tube) 15 - 30 gm PO UD PRN; Protocol PRN Reason: Hypoglycemia Protocol Stop: 05/07/23 23:43 Guaifenesin/Dextromethorphan (Guaifenesin/Dextrom Syrup 100mg/10mg 5ml Udc) 5 ml PO Q6H PRN PRN Reason: cough Stop: 05/07/23 23:43 Azithromycin 250 mg/ Dextrose 252.5 mls @ 125 mls/hr IV Q24H [facility] Stop: 04/15/23 21:59 Last Infusion: 04/12/23 00:59 Dose: Infused Ceftriaxone Sodium 2,000 mg/ (Dextrose) 70 mls @ 100 mls/hr IV Q24H [facility]; Protocol Stop: 04/19/23 12:29 Last Admin: 04/12/23 14:24 Dose: 100 mls/hr Linezolid (Zyvox) 600 mg in 300 mls @ 200 mls/hr IV Q12H [facility] Stop: 04/20/23 10:44 Last Admin: 04/12/23 11:25 Dose: 200 mls/hr Heparin Sodium/Dextrose (Heparin Sodium/Dextrose) 25,000 units in 500 mls @ 33 mls/hr IV .[id number] [facility]; Protocol Stop: 05/11/23 08:44 Last Titration: 04/12/23 07:17 Dose: 1,650 units/hr, 33 mls/hr Insulin Aspart (Insulin Aspart Per Unit Charge) 0 units SC ACHS [facility] Stop: 05/10/23 16:29 Last Admin: 04/12/23 13:26 Dose: 9 units Insulin Glargine (Lantus Per Unit Charge) 25 units SC DAILY [facility]; Protocol Stop: 05/09/23 09:14 Last Admin: 04/12/23 09:02 Dose: 25 units Isosorbide Dinitrate (Isosorbide Dinitrate 10 Mg Tab) 30 mg PO DAILY [facility] Stop: 05/08/23 08:59 Last Admin: 04/12/23 08:45 Dose: 30 mg Lactobacillus Acidophilus (Advanced Probiotic 1250 Mg Capsule) 2 cap PO TID [facility] Stop: 05/08/23 08:59 Last Admin: 04/12/23 08:45 Dose: 2 cap Magnesium Oxide (Magnesium Oxide 400 Mg Tab) 400 mg PO DAILY [facility] Stop: 05/08/23 08:59 Last Admin: 04/12/23 09:01 Dose: 400 mg Metoprolol Succinate (Metoprolol Succ 25mg Ext Rel Tab) 75 mg PO BID [facility] Stop: 05/08/23 08:59 Last Admin: 04/12/23 08:43 Dose: 75 mg Miscellaneous (Remove Nicoderm Patch) 1 each N/A DAILY@0859 [facility] Stop: 05/08/23 08:58 Last Admin: 04/12/23 09:04 Dose: 1 each Miscellaneous (Carbohydrates For Hypoglycemia ) 15 - 30 gm PO UD PRN PRN Reason: Hypoglycemia Protocol Stop: 05/07/23 23:43 Miscellaneous Information (Pharmacy Glycemic Mgmt Consult) 1 each N/A UD PRN PRN Reason: Consult Stop: 05/07/23 23:43 Nicotine (Nicotine 21 Mg/24 Hr Tdsy) 21 mg TD DAILY [facility] Stop: 05/08/23 08:59 Last Admin: 04/12/23 08:47 Dose: 21 mg Nitroglycerin (Nitroglycerin Sl 0.4 Mg/Tab Tab) 0.4 mg SL Q5M PRN PRN Reason: Chest Pain Stop: 05/07/23 23:43 Nystatin (Nystatin Powder 15gm Btl) 1 appln EXT TID PRN PRN Reason: Skin Irritation Stop: 05/07/23 23:43 Pantoprazole Sodium (Pantoprazole 40 Mg Tab) 40 mg PO DAILYBB [facility] Stop: 05/08/23 06:29 Last Admin: 04/12/23 04:15 Dose: 40 mg Polyethylene Glycol (Polyethylene (Miralax) 17 Gm Pack) 17 gm PO QAM [facility] Stop: 05/08/23 08:59 Last Admin: 04/12/23 09:02 Dose: 17 gm Potassium Chloride (Potassium Chloride Crtab 20 Meq Tabcr) 40 meq PO BID [facility] Stop: 05/08/23 08:59 Prednisone (Prednisone 20 Mg Tab) 20 mg PO DAILY [facility] Stop: 05/10/23 08:59 Last Admin: 04/12/23 08:44 Dose: 20 mg Promethazine HCl (Promethazine Hcl 25 Mg Tab) 12.5 mg PO BID PRN PRN Reason: nausea and vomiting Stop: 05/07/23 23:43 Sennosides (Senna 8.6 Mg Tab) 8.6 mg PO DAILY PRN PRN Reason: Constipation Stop: 05/07/23 23:43 Last Admin: 04/12/23 08:45 Dose: 8.6 mg Tamsulosin HCl (Tamsulosin Hcl 0.4 Mg Cap) 0.8 mg PO QAM [facility] Stop: 05/08/23 08:59 Last Admin: 04/12/23 08:43 Dose: 0.8 mg Thiamine HCl (Thiamine Hcl 100 Mg Tab) [facility] [place] Stop: 05/10/23 14:14 Last Admin: 04/12/23 08:43 Dose: 200 mg Vitamin D (Cholecalciferol 5,000 Units 125 Mcg Tab) 5,000 units PO [facility] Stop: 05/08/23 08:59 Last Admin: 04/12/23 08:45 Dose: 5,000 units Warfarin Sodium (Warfarin Sod 2.5 Mg Tab) 2.5 mg PO TuTh@1600 [facility] Stop: 05/13/23 15:59 Warfarin Sodium (Warfarin Sod 5 Mg Tab) 5 mg PO SuMoWeFrSa@1600 [facility] Stop: 05/10/23 15:59 Last Admin: 04/11/23 18:11 Dose: 5 mg (3) COPD (chronic obstructive pulmonary disease) COPD type: unspecified COPD Qualified Code(s): J44.9 - Chronic obstructive pulmonary disease, unspecified
--- NOTE | 2023-04-12 15:33 | Pulmonology Progress Note ---
Date of Service April 12, 2023 Assessment & Plan (1) COPD exacerbation: (2) SOB (shortness of breath): (3) (HFpEF) heart failure with preserved ejection fraction: (4) Acute on chronic respiratory failure with hypoxia and hypercapnia: (5) Wheezing: (6) Tobacco use: Plan Attending: Dr. Bangura Impression: 52-year-old morbidly obese male with multitude of medical issues admitted now with shortness of breath and some degree of bronchospasm on exam as well as compensated hypercarbic respiratory failure with hypoxemic respiratory failure. He was compliant with noninvasive positive pressure ventilation last evening and appears clinically improved. Recommendations: 1. Hypercarbic respiratory failure: Suspected degree of obesity hypoventilation syndrome. Continue nocturnal noninvasive positive pressure ventilation as tolerated. Patient would benefit from polysomnography but reports that he has difficulty with transportation as he does not fit into personal vehicle. Did suggest [place] transportation with wheelchair van. He will discuss with case management 2. COPD: PFTs are not available in our system. Bronchospasm resolved. Complete 5 days total of prednisone 20 mg a day. No indication for titration. Patient currently receiving Perforomist and budesonide neb treatments as mental status did not support coordination of MDI. Can complete course of azithromycin for pulmonary issues and then discontinue. Can consider changing patient from nebulized pulmonary treatments to ICS/LAMA/LABA with Brody Diaz or Breztri on discharge. 3. Patient's respiratory issues are largely complicated by body habitus. Recommend aggressive attempts at weight loss. Nutritional consultation would be of benefit. Due to patient's limited mobility, caloric restriction will be required. Patient would benefit from supervised weight loss if transportation remained available. 4. History of DVT/PE: Patient is supratherapeutic. Coumadin management per primary service. No indication for repeat evaluation currently. 5. Tobacco abuse: Patient is a current everyday tobacco user with cigarettes. Encourage patient to reduce smoking with the goal of abstention. Patient reports that his is a smoker as well and refuses to quit. He reports that this makes it difficult for him to give up smoking. 6. Hypoxia: Patient currently requiring supplemental oxygen at 2 L/min by nasal cannula. With unknown COPD history, may consider SPO2 target of 88 to 92%. Patient unable to perform two-step for desaturation requirements. Patient may benefit from some furosemide as he appears to be somewhat fluid overloaded. The pulmonary service will sign off at this time. Would recommend the patient follow-up with [facility] pulmonary with whom he is established at discharge. Admission and Anticipated Discharge Date Admission Date: April 07, 2023 Supervising Physician Co-Signing Physician Notes The patient was seen and examined. Case discussed germán with the ICU/pulmonary PA-C. The patient is morbidly obese and continues to have wheezing and shortness of breath. Apparently he has been suggested by many pulmonary physicians to obtain a sleep study but never did and never had home CPAP administered. Perhaps he can get a home sleep study as he is saying that his size precludes him from getting out of the house and into a car on a regular basis. On blood gas he does have elevated PCO2 so perhaps he could actually benefit from a BiPAP and question whether or not that could be arranged at home. We talked at length about smoking cessation and it is uncertain whether the patient is going to adhere to that especially as there are other household members that continue to smoke. I would advise a inhaler of a long-acting bronchodilator, inhaled corticosteroid and long-acting cholinergic for his COPD. He continues to be on home oxygen and that should remain the same and we discussed smoking abstinence especially while using home oxygen even if it is not in the immediate vicinity of administered oxygen. One could consider a low- dose of Lasix 20 mg IV for some right heart failure and some fluid overload which could be contributing to some ongoing pulmonary wheezing. General noncompliance seems to be at the core of this patient's medical deterioration. Please let us know if we could be of any service to you. Subjective Attending: Dr. Bangura Patient admitted 04/07/2023 with shortness of breath and altered mental status. Patient seen by Dr. Yadav and noted to have some degree of bronchospasm on exam as well as compensated hypercarbic respiratory failure with hypoxemic respiratory failure. Patient was started on Perforomist as well as budesonide nebulizer treatments with Dr. Yadav due to patient not being awake enough to participate in MDI therapy. Patient also was continued on DuoNebs as needed. Patient is alert and oriented today. He states that he has never been on CPAP but does snore. Patient sleeps in a hospital bed at home. He reports that he has difficulty getting to outpatient appointments due to his size and inability to get in and out of personal vehicle. Patient most likely does have obesity hypoventilation syndrome and would qualify for nocturnal CPAP or BiPAP. There is a question of his medical compliance should he have this device going forward. Patient states that he used the BiPAP in house for 6 hours last night and would be interested in pursuing this. Patient also reports that he was márquez ccessful in using the nebulizers. He reports that he is not on any MDI therapy as an outpatient. Patient denies any significant shortness of breath today. No cough or sputum production. Patient did cough forcefully in the room and had no difficulty with generating cough. He had no sputum production at that time. Now the patient is awake enough, he would be willing to trial MDI inhalers. Review of Systems Review of Systems: A total of 10 systems was reviewed and is negative other than as listed in the HPI Physical Exam Physical Exam: GENERAL : No acute distress. Sitting in bedside chair. No evidence of conversational dyspnea EYES: No icterus, gaze conjugate NOSE: No evidence of epistaxis MOUTH: No lesions or candidiasis NECK: Supple LUNGS: Decreased globally. No appreciation of bronchospasm or rhonchi HEART: Regular, rate controlled ABDOMEN: Soft, NT, ND, BS Present. Protuberant abdomen EXTREMITIES: Bilateral no LE edema evidence of chronic venous stasis NEURO: A&OX3 Results & Data Results & Data Vital Signs (Past 12 Hours) Vital Signs Temp Pulse Resp BP Pulse Ox O2 Del Method O2 Flow Rate 04/12/23 15:27 83 18 96 Nasal Cannula 2 04/12/23 10:40 36.7 C 92 H 18 112/70 92 Nasal Cannula 2 04/12/23 10:43 83 18 96 Nasal Cannula 2 04/12/23 07:19 36.4 C L 84 18 111/65 94 Nasal Cannula 2 04/12/23 06:49 86 18 99 Nasal Cannula 4 Critical Care Results & Data Vital Signs (Past 12 Hours) Vital Signs Temp Pulse Resp BP Pulse Ox O2 Del Method O2 Flow Rate 04/12/23 15:27 83 18 96 Nasal Cannula 2 04/12/23 10:40 36.7 C 92 H 18 112/70 92 Nasal Cannula 2 04/12/23 10:43 83 18 96 Nasal Cannula 2 04/12/23 07:19 36.4 C L 84 18 111/65 94 Nasal Cannula 2 04/12/23 06:49 86 18 99 Nasal Cannula 4 Lab & Micro Results (Past 24 Hours) RBC 5.20 M/uL (4.70-6.10) 04/12/23 WBC 13.32 K/ul (4.8-10.8) H 04/12/23 Hgb 13.2 g/dl (14.0-18.0) L 04/12/23 Hct 42.0 % (42.0-52.0) 04/12/23 MCV 80.8 fL (80.0-100.0) 04/12/23 MCH 25.4 pg (25.0-34.0) 04/12/23 MCHC 31.4 g/dL (32.0-36.0) L 04/12/23 RDW Standard Deviation 47.9 fL (36.4-46.3) H 04/12/23 RDW Coefficient of Variation 16.6 % (11.5-14.5) H 04/12/23 Plt Count 266 K/uL (130-400) 04/12/23 MPV 10.1 fL (9.4-12.4) 04/12/23 Neutrophils (%) (Auto) 61.9 % 04/12/23 Lymphocytes (%) (Auto) 28.7 % 04/12/23 Monocytes # (Auto) 0.94 K/uL (0.11-0.59) H 04/12/23 Eosinophils # (Auto) 0.16 K/uL (0-0.50) 04/12/23 Immature Granulocyte % (Auto) 0.5 % 04/12/23 Neutrophils # (Auto) 8.25 K/uL (1.40-6.50) H 04/12/23 Lymphocytes # (Auto) 3.82 K/uL (1.2-3.4) H 04/12/23 Monocytes # (Auto) 0.94 K/uL (0.11-0.59) H 04/12/23 Eosinophils # (Auto) 0.16 K/uL (0-0.50) 04/12/23 Basophils # (Auto) 0.08 K/uL (0-0.2) 04/12/23 Immature Granulocyte # (Auto) 0.07 K/uL (0.01-0.20) 3 Na 137 mmol/L (136-145) 04/12/23 K 3.2 mmol/L (3.5-5.1) L 04/12/23 Cl 93 mmol/L (98-107) L 04/12/23 CO2 39 mmol/L (21-32) H 04/12/23 Anion Gap 5 (3-11) 04/12/23 BUN 12 mg/dl (6-23) 04/12/23 Creatinine 1.03 mg/dl (0.6-1.4) 04/12/23 Estimated GFR ( Amer) 96.3 ml/min 04/12/23 Estimated GFR (Non-Af Amer) 83.1 ml/min 04/12/23 BUN/Creatinine Ratio 11.7 (10-20) 04/12/23 Glu 135 mg/dl (70-99(Fasting)) H 04/12/23 Ca 10.2 mg/dl (8.6-10.3) 04/12/23 Phosphorus Level 2.7 mg/dl (2.5-4.9) 04/12/23 Mg 1.7 mg/dl (1.7-2.4) 04/12/23 03:12 Calcium Level 10.2 mg/dl (8.6-10.3) 04/12/23 03:12 Prothromb Time International Ratio 1.0 (0.9-1.1) 04/12/23 03:1 2 Microbiology 04/09/23 12:40 Aerobic Blood Culture - Preliminary Blood No growth in Aerobic bottle after 48 hours. Anaerobic Blood Culture - Preliminary No growth in Anaerobic bottle after 48 hours. 04/09/23 12:59 Aerobic Blood Culture - Preliminary Blood No growth in Aerobic bottle after 48 hours. Anaerobic Blood Culture - Preliminary No growth in Anaerobic bottle after 48 hours. I & O Totals 24 Hours 04/11/23 04/12/23 04/13/23 06:59 06:59 06:59 Intake Total 2032.500 / 2032.500 3194.034 / 3194.034 99 / 99 Output Total 1175 / 1175 2250 / 2250 Balance 857.500 / 857.500 944.034 / 944.034 99 / 99 Cumulative 04/07/23 20:22 thru 04/12/23 07:17 Intake Total 7675.784 Output Total 6225 Balance 1450.784 RT Ventilator Mngmt (Last Documented) Ventilator Ordered Settings Respiratory Rate 18 07/24/23 15:27 Fraction of Inspired Oxygen 40 04/11/23 02:37 Ventilator - PT Measurements Respiratory Rate 18 PG Care Time/CCT Total # of Minutes Spent Total Time Spent with Patient: Total time spent is greater than 50% in coordination of care (as documented) at patient's floor/unit and/or counseling patient: Coding Level of Care Code 38049 SUB INP/OBS CARE 2/35MIN Medical Decision Making Low Complexity Diagnoses COPD exacerbation J44.1 SOB (shortness of breath) R06.02 (HFpEF) heart failure with preserved ejection fraction I50.30 Acute on chronic respiratory failure with hypoxia and hypercapnia J96.21; J96.22 Wheezing R06.2 Tobacco use Z72.0 Time Spent (min) 35
[2023-04-12] MEDS: WARFARIN SOD 7.5 MG TAB PO SCH (16:28)
[2023-04-12] MEDS: FUROSEMIDE 40 MG TAB PO SCH (16:28)
[2023-04-12] MEDS: PROMETHAZINE HCL 25 MG TAB PO PRN (20:47)
[2023-04-12] MEDS: CYCLOBENZAPRINE HCL 10 MG TAB PO PRN (20:48)
[2023-04-12] MEDS: AZITHROMYCIN 250 MG in DEXTROSE 5% 250 ML IV SCH (20:49)
[2023-04-12] MEDS: ATORVASTATIN 40 MG TAB PO SCH (20:50)
[2023-04-13] MEDS ORDERED: LORazepam 0.5 MG TAB PO STA (00:11)
[2023-04-13] MEDS: PANTOprazole 40 MG TAB PO SCH (06:29)
[2023-04-13] MEDS: BUDESONIDE 0.5 MG/2 ML VIAL (PULMICORT) NEB SCH ×2 (07:10→22:55)
[2023-04-13] MEDS: ALBUT/IPRATROP 3MG/0.5MG NEB 3 ML VIAL NEB SCH ×4 (07:10→22:56)
[2023-04-13] MEDS: FORMOTEROL 20 MCG/2 ML VIAL NEB SCH ×2 (07:10→22:55)
[2023-04-13 07:45] LABS: INR 1.1 (0.9-1.1); Prothrombin Time 12.4 Seconds (9.0-12.0)
[2023-04-13] MEDS ORDERED: POTASSIUM CHLORIDE CRTAB 20 MEQ TABCR PO STA (07:46)
[2023-04-13 08:00] LABS: Partial Thromboplastin Ratio 1.6
[2023-04-13 08:02] LABS: Partial Thromboplastin Time 45.3 Seconds (21.0-31.0)
[2023-04-13] MEDS: INSULIN ASPART PER UNIT CHARGE SC SCH ×4 (08:50→21:29)
[2023-04-13] MEDS: LANTUS PER UNIT CHARGE SC SCH (08:52)
[2023-04-13] MEDS: NICOTINE 21 MG/24 HR TDSY TD SCH (08:57)
[2023-04-13] MEDS: THIAMINE HCL 100 MG TAB PO SCH (08:57)
[2023-04-13] MEDS: FUROSEMIDE 40 MG TAB PO SCH ×2 (08:58→17:04)
[2023-04-13] MEDS: METOPROLOL SUCC 25MG EXT REL TAB PO SCH ×2 (08:59→21:06)
[2023-04-13] MEDS: ADVANCED PROBIOTIC 1250 MG CAPSULE PO SCH ×3 (09:01→21:02)
[2023-04-13] MEDS: DICLOFENAC SOD 1% GEL 100 GM TUBE EXT SCH ×2 (09:01→21:04)
[2023-04-13] MEDS: buprenorphine HCL 8 MG SUBL SL SCH ×2 (09:02→21:01)
[2023-04-13] MEDS: FLUTICASONE PROPIONATE NA SPR 16 GM BTL SCH (09:03)
[2023-04-13] MEDS: SPIRONOLACTONE 25 MG TAB PO SCH (09:04)
[2023-04-13] MEDS ORDERED: ACETAMINOPHEN 1,000 MG/100 ML VIAL IV STA ×2 (09:14→21:19)
[2023-04-13] MEDS: POLYETHYLENE (MIRALAX) 17 GM PACK PO SCH (09:38)
[2023-04-13] MEDS: CYCLOBENZAPRINE HCL 10 MG TAB PO PRN ×2 (09:38→21:01)
[2023-04-13] MEDS: CHOLECALCIFEROL 5,000 UNITS 125 MCG TAB PO SCH (09:47)
[2023-04-13] MEDS: ASPIRIN 81 MG ECTAB PO SCH (09:47)
[2023-04-13] MEDS: TAMSULOSIN HCL 0.4 MG CAP PO SCH (09:48)
[2023-04-13] MEDS: predniSONE 20 MG TAB PO SCH (09:48)
[2023-04-13] MEDS: FAMOTIDINE 20 MG TAB PO SCH (09:48)
[2023-04-13] MEDS: FERROUS SULFATE 325 MG TAB PO SCH (09:48)
[2023-04-13] MEDS: FINASTERIDE 5 MG TAB PO SCH (09:49)
[2023-04-13] MEDS: FOLIC ACID 1 MG TAB PO SCH (09:49)
[2023-04-13] MEDS: ISOSORBIDE DINITRATE 10 MG TAB PO SCH (09:49)
[2023-04-13] MEDS: MAGNESIUM OXIDE 400 MG TAB PO SCH (10:00)
[2023-04-13] MEDS: LINEZOLID 600 MG/300 ML BAG IV SCH ×2 (10:03→23:44)
[2023-04-13] MEDS: DOCUSATE SODIUM 100 MG CAP PO SCH ×2 (10:03→21:00)
[2023-04-13] MEDS: HEPARIN SODIUM/DEXTROSE 25,000 UNITS/500 ML BAG IV SCH (11:10)
[2023-04-13] MEDS: buprenorphine HCL 2 MG SUBL SL SCH (12:15)
[2023-04-13] MEDS: cefTRIAXone SODIUM 2,000 MG in DEXTROSE 5% 50 ML IV SCH (12:16)
--- NOTE | 2023-04-13 12:28 | Hospitalist Progress Note ---
Date of Service April 13, 2023 Assessment & Plan (1) SOB (shortness of breath): Plan: Patient is a 52 yr male who presents with shortness of breath and also found to be altered mental status. Acute on chronic respiratory failure with hypoxia Secondary to COPD exacerbation and is complicated by other comorbid conditions like CHF, fluid overload and obesity, sleep apnea --CXR:No acute chest disease. Continue Solu-Medrol, nebs Continue supplemental oxygen as needed Currently on BiPAP Received 1 dose of ceftriaxone on admission and which will be continued from today again and has been on azithromycin Pulmonology consulted-appreciate input and recommendation Wean oxygen to maintain saturations 88-92 % given history of COPD Clinically not any better He has been refusing BiPAP and not been able to blow out CO2 which remains elevated He agreed to use BiPAP more to help with situation If he is not compliant he will have a palliative care evaluation down the line Used BiPAP for about 6 hours last evening and he has been feeling a lot better this morning and has been conversant We will continue current management and is strongly advised to use BiPAP as much as he can do His CO2 remains elevated at with carbon oxide level of 42 today No shortness of breath at rest and has been requiring 2 L to maintain saturation Clinically much better today and pulmonology has signed off, he has been saturating normally on room air at rest Acute metabolic encephalopathy Likely multifactorial DD: Hypercarbia, meds, hypoxia, possible infection -CT Head:No acute intracranial hemorrhage, midline shift, or mass effect. -Hypercarbia noted on ABG --Drug screen negative --Normal ammonia, TSH -Could be secondary to complicated UTI Mental status has been normalized Has UTI with Klebsiella pneumoniae and Enterococcus faecium VRE Empirically on IV Rocephin which will be continued until we get the further sensitivity report Hold any sedating medications ( hold Ativan, hydroxyzine, buprenorphine, ga bapentin) He has been getting ceftriaxone since yesterday and he is allergic to daptomycin The case was discussed with ID specialist in [place], Dr. Alves and recommended to use linezolid Discussed with the pharmacist and linezolid was restarted for VRE and Cymbalta has been on hold from today that is 04/10/2023 Lloyd catheter changed and repeat urine culture has been sent -Has been getting Zyvox for VRE UTI which will be continued for about 7 to 10 days as per the ID specialist in [place] -We will continue Rocephin for Klebsiella pneumoniae urine as well -We will change Lloyd and reculture urine-repeat urine culture has been sent -Clinically much better and the current antibiotic will be continued -Antibiotic will be continued for 10 days in total-repeat urine culture is negat ajnel so far Hypokalemia Hypomagnesia Hyponatremia Replete electrolytes as needed Monitor -electrolytes have been normalized Potassium and phosphate will be replaced Electrolytes will be monitored-minimally low potassium which will be replaced Supratherapeutic INR No obvious bleeding issues Coumadin held Monitor INR-has been low at 1.2 as of 04/10/2023 Will restart Coumadin and monitor INR INR has been subtherapeutic-IV heparin has been added from today and will continue Coumadin till INR is therapeutic INR remains subtherapeutic likely secondary to interaction with antibiotics Will increase the dose of warfarin 7.5 mg daily-monitor INR We will continue with 7.5 mg of Coumadin which is expected to be decreased down the line when Zyvox and ceftriaxone are done MAHAMED Cr 1.4 Held Lasix and spironolactone Received gentle IV fluids Monitor renal function Avoid Nephrotoxic agents as able Creatinine has been EYES: Pupils round equal and react to light, extraocular movements full, no injection. Chronic diastolic CHF Clinically dehydrated Hold diuretics for now Monitor volume status No signs and or symptoms of fluid overload We will restart diuretics No signs of volume overload . DM II HbA1C: 7.8 Continue insulin while hospitalized Monitor blood glucose levels Glycemic pharmacy consulted Abnormal EKG Negative cardiac enzymes Repeat EKG no signs of acute ischemia H/O PE Coumadin on hold due to supratherapeutic INR Chronic opioid use Chronic pain Anxiety Hold buprenorphine, gabapentin, Ativan, and hydroxyzine for now Hypertension Continue metoprolol DVT Px: INR supratherapeutic Code Status Full code PT and OT have been ordered Discussed with the significant other (2) Acute UTI: (3) COPD (chronic obstructive pulmonary disease): (4) Hypokalemia: (5) Hypomagnesemia: Admission and Anticipated Discharge Date Admission Date: April 07, 2023 Subjective 04/09/2023 The patient was seen and examined in telemetry unit He has been very drowsy since this morning Denies any symptoms but has been having difficulty in concentrating with communication No fever and or chills and has been requiring 6 L to maintain saturation 04/10/2023 The patient was seen and examined in telemetry unit He has been more alert and awake today but he still remains very drowsy Denies any significant symptoms of shortness of breath, pain and/or palpitation No fever and or chills 04/11/2023 The patient was seen and examined in telemetry unit He is much better today, alert awake and more conversant Generally weak but denies any other significant symptoms 04/12/2023 The patient was seen and examined in telemetry unit He is out of bed on a chair and asking for more pain medications and more food He has been feeling much better and denies any significant symptoms 04/13/2023 The patient was seen and examined in telemetry unit He has been feeling much better and denies any significant symptoms He has minimal wheezing and saturating normally on room air Denies any fever and or chills Review of Systems Review of Systems: All systems reviewed and are unremarkable except as noted below Neurologic: Generally weak and no more drowsiness Physical Exam Physical Exam: Sitting at the edge of the bed without any acute distress Constitutional: well developed, well nourished, + ill appearing and + morbidly obese Eyes: PERRL, conjunctivae normal, anicteric sclerae ENMT: external ear and nose normal, oropharynx normal Neck: trachea midline, no thyromegaly Respiratory: no respiratory distress Auscultation: + diminished lung sounds and + crackles (Bibasilar crackles) Cardiovascular: Rate/Rhythm: regular rate and regular rhythm; not tachycardic Heart Sounds: normal S1 and normal S2; no murmur Extremities: + edema (Trace to 1+ edema bilaterally) Gastrointestinal (Abdomen): Inspection/Auscultation: + abdomen distended and normal bowel sounds Percussion/Palpation: abdomen soft; abdomen nontender Musculoskeletal: No acute arthritis involving any of the joint Neurologic: Alert, 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. No focal sensory or motor deficit appreciated. Generally weak Lymphatic: no cervical or axillary lymphadenopathy Results & Data Results & Data Vital Signs (Past 12 Hours) Vital Signs Temp Pulse Resp BP Pulse Ox O2 Del Method O2 Flow Rate 04/13/23 11:56 36.9 C 94 H 20 92/64 L 97 Room Air 04/13/23 11:25 90 18 89 L Room Air 04/13/23 08:00 Room Air 04/13/23 07:49 36.5 C 80 20 149/92 H 97 Room Air 04/13/23 07:10 61 18 96 Nasal Cannula 2 04/13/23 05:30 66 18 122/83 99 Nasal Cannula 4 Medications Administered Current Inpatient Medications Acetaminophen (Acetaminophen 325 Mg Tab) 650 mg PO Q4H PRN PRN Reason: Pain or Fever Stop: 05/07/23 23:43 Last Admin: 04/11/23 21:10 Dose: 650 mg Albuterol (Albuterol Hfa 8 Gm Inhaler) 2 puffs INH Q4 PRN PRN Reason: Dyspnea Stop: 05/07/23 23:43 Albuterol (Albut/Ipratrop 3mg/0.5mg Neb 3 Ml Vial) 3 ml NEB QIDR [facility]; Protocol Stop: 05/08/23 06:59 Last Admin: 04/13/23 11:24 Dose: 3 ml Aspirin (Aspirin 81 Mg Ectab) 81 mg PO QAM [facility] Stop: 05/08/23 08:59 Last Admin: 04/13/23 09:47 Dose: 81 mg Atorvastatin Calcium (Atorvastatin 40 Mg Tab) 80 mg PO QPM [facility] Stop: 05/08/23 20:59 Last Admin: 04/12/23 20:50 Dose: 80 mg Benzonatate (Benzonatate 100 Mg Capsule) 100 mg PO TID PRN PRN Reason: cough Stop: 05/07/23 23:43 Last Admin: 04/08/23 23:28 Dose: 100 mg Budesonide (Budesonide 0.5 Mg/2 Ml Vial (Pulmicort)) 0.5 mg NEB BIDR [facility] Stop: 05/08/23 18:59 Last Admin: 04/13/23 07:10 Dose: 0.5 mg Buprenorphine HCl (Buprenorphine Hcl 8 Mg Subl) 8 mg SL BID [facility] Stop: 05/12/23 10:44 Last Admin: 04/13/23 09:02 Dose: 8 mg Buprenorphine HCl (Buprenorphine Hcl 2 Mg Subl) 4 mg SL DAILY@1200 [facility] Stop: 05/12/23 11:59 Last Admin: 04/13/23 12:15 Dose: 4 mg Cyclobenzaprine HCl (Cyclobenzaprine Hcl 10 Mg Tab) 10 mg PO BID PRN PRN Reason: Muscle Spasm Stop: 05/07/23 23:43 Last Admin: 04/13/23 09:38 Dose: 10 mg Dextrose (Dextrose 50% 50 Ml Syringe) 25 - 50 ml IV UD PRN; Protocol PRN Reason: Hypoglycemia Protocol Stop: 05/07/23 23:43 Diclofenac Sodium (Diclofenac Sod 1% Gel 100 Gm Tube) 2 gm EXT BID EMPERATRIZ; Protocol Stop: 05/08/23 08:59 Last Admin: 04/13/23 09:01 Dose: 2 gm Docusate Sodium (Docusate Sodium 100 Mg Cap) 100 mg PO BID [facility] Stop: 05/08/23 08:59 Last Admin: 04/13/23 10:03 Dose: 100 mg Duloxetine HCl (Duloxetine Hcl 60 Mg Cap) 60 mg PO DAILY [facility] Stop: 05/08/23 08:59 Last Admin: 04/10/23 09:17 Dose: 60 mg Famotidine (Famotidine 20 Mg Tab) 20 mg PO DAILY [facility] Stop: 05/08/23 08:59 Last Admin: 04/13/23 09:48 Dose: 20 mg Ferrous Sulfate (Ferrous Sulfate 325 Mg Tab) 325 mg PO QAM [facility] Stop: 05/08/23 08:59 Last Admin: 04/13/23 09:48 Dose: 325 mg Finasteride (Finasteride 5 Mg Tab) 5 mg PO QAM [facility] Stop: 05/08/23 08:59 Last Admin: 04/13/23 09:49 Dose: 5 mg Fluticasone Propionate (Fluticasone Propionate Na Spr 16 Gm Btl) 2 sprays NA DAILY [facility] Stop: 05/08/23 08:59 Last Admin: 04/13/23 09:03 Dose: 2 sprays Folic Acid (Folic Acid 1 Mg Tab) 1 mg PO QAM [facility] Stop: 05/08/23 08:59 Last Admin: 04/13/23 09:49 Dose: 1 mg Formoterol Fumarate (Formoterol 20 Mcg/2 Ml Vial) 20 mcg NEB BIDR [facility] Stop: 05/08/23 18:59 Last Admin: 04/13/23 07:10 Dose: 20 mcg Furosemide (Furosemide 40 Mg Tab) 40 mg PO BID17 [facility] Stop: 05/12/23 16:59 Last Admin: 04/13/23 08:58 Dose: 40 mg Glucagon (Glucagon For Inj 1 Mg Vial) 1 mg SQ UD PRN; Protocol PRN Reason: Hypoglycemia Protocol Stop: 05/07/23 23:43 Glucose (Glucose 10 Tab/Tube) 4 - 8 tab PO UD PRN; Protocol PRN Reason: Hypoglycemia Treatment Stop: 05/07/23 23:43 Glucose (Glucose 40% Gel 15 Gm Tube) 15 - 30 gm PO UD PRN; Protocol PRN Reason: Hypoglycemia Protocol Stop: 05/07/23 23:43 Guaifenesin/Dextromethorphan (Guaifenesin/Dextrom Syrup 100mg/10mg 5ml Udc) 5 ml PO Q6H PRN PRN Reason: cough Stop: 05/07/23 23:43 Azithromycin 250 mg/ Dextrose 252.5 mls @ 125 mls/hr IV Q24H [facility] Stop: 04/15/23 21:59 Last Infusion: 04/12/23 22:51 Dose: Infused Ceftriaxone Sodium 2,000 mg/ (Dextrose) 70 mls @ 100 mls/hr IV Q24H [facility]; Protocol Stop: 04/19/23 12:29 Last Admin: 04/13/23 12:16 Dose: 100 mls/hr Linezolid (Zyvox) 600 mg in 300 mls @ 200 mls/hr IV Q12H [facility] Stop: 04/20/23 10:44 Last Infusion: 04/13/23 12:06 Dose: Infused Heparin Sodium/Dextrose (Heparin Sodium/Dextrose) 25,000 units in 500 mls @ 33 mls/hr IV .[id number] [facility]; Protocol Stop: 05/11/23 08:44 Last Admin: 04/13/23 11:10 Dose: 1,650 units/hr, 33 mls/hr Insulin Aspart (Insulin Aspart Per Unit Charge) 0 units SC ACHS [facility] Stop: 05/10/23 16:29 Last Admin: 04/13/23 12:14 Dose: 26 units Insulin Glargine (Lantus Per Unit Charge) 22 units SC DAILY [facility]; Protocol Stop: 05/13/23 08:59 Last Admin: 04/13/23 08:52 Dose: 22 units Isosorbide Dinitrate (Isosorbide Dinitrate 10 Mg Tab) 30 mg PO DAILY [facility] Stop: 05/08/23 08:59 Last Admin: 04/13/23 09:49 Dose: 30 mg Lactobacillus Acidophilus (Advanced Probiotic 1250 Mg Capsule) 2 cap PO TID [facility] Stop: 05/08/23 08:59 Last Admin: 04/13/23 09:01 Dose: 2 cap Magnesium Oxide (Magnesium Oxide 400 Mg Tab) 400 mg PO DAILY EMPERATRIZ Stop: 05/08/23 08:59 Last Admin: 04/13/23 10:00 Dose: 400 mg Metoprolol Succinate (Metoprolol Succ 25mg Ext Rel Tab) 75 mg PO BID [facility] Stop: 05/08/23 08:59 Last Admin: 04/13/23 08:59 Dose: 75 mg Miscellaneous (Remove Nicoderm Patch) 1 each N/A DAILY@0859 EMPERATRIZ Stop: 05/08/23 08:58 Last Admin: 04/13/23 08:56 Dose: 1 each Miscellaneous (Carbohydrates For Hypoglycemia ) 15 - 30 gm PO UD PRN PRN Reason: Hypoglycemia Protocol Stop: 05/07/23 23:43 Miscellaneous Information (Pharmacy Glycemic Mgmt Consult) 1 each N/A UD PRN PRN Reason: Consult Stop: 05/07/23 23:43 Nicotine (Nicotine 21 Mg/24 Hr Tdsy) 21 mg TD DAILY EMPERATRIZ Stop: 05/08/23 08:59 Last Admin: 04/13/23 08:57 Dose: 21 mg Nitroglycerin (Nitroglycerin Sl 0.4 Mg/Tab Tab) 0.4 mg SL Q5M PRN PRN Reason: Chest Pain Stop: 05/07/23 23:43 Nystatin (Nystatin Powder 15gm Btl) 1 appln EXT TID PRN PRN Reason: Skin Irritation Stop: 05/07/23 23:43 Pantoprazole Sodium (Pantoprazole 40 Mg Tab) 40 mg PO DAILYBB [facility] Stop: 05/08/23 06:29 Last Admin: 04/13/23 06:29 Dose: 40 mg Polyethylene Glycol (Polyethylene (Miralax) 17 Gm Pack) 17 gm PO QAM [facility] Stop: 05/08/23 08:59 Last Admin: 04/13/23 09:38 Dose: 17 gm Potassium Chloride (Potassium Chloride Crtab 20 Meq Tabcr) 40 meq PO BID [facility] Stop: 05/08/23 08:59 Prednisone (Prednisone 20 Mg Tab) 20 mg PO DAILY [facility] Stop: 05/10/23 08:59 Last Admin: 04/13/23 09:48 Dose: 20 mg Promethazine HCl (Promethazine Hcl 25 Mg Tab) 12.5 mg PO BID PRN PRN Reason: nausea and vomiting Stop: 05/07/23 23:43 Last Admin: 04/12/23 20:47 Dose: 12.5 mg Sennosides (Senna 8.6 Mg Tab) 8.6 mg PO DAILY PRN PRN Reason: Constipation Stop: 05/07/23 23:43 Last Admin: 04/12/23 08:45 Dose: 8.6 mg Spironolactone (Spironolactone 25 Mg Tab) [address] [facility] Stop: 05/13/23 08:59 Last Admin: 04/13/23 09:04 Dose: 25 mg Tamsulosin HCl (Tamsulosin Hcl 0.4 Mg Cap) 0.[address] [facility] Stop: 05/08/23 08:59 Last Admin: 04/13/23 09:48 Dose: 0.8 mg Thiamine HCl (Thiamine Hcl 100 Mg Tab) [address] [facility] Stop: 05/10/23 14:14 Last Admin: 04/13/23 08:57 Dose: 200 mg Vitamin D (Cholecalciferol 5,000 Units 125 Mcg Tab) 5,[address] [facility] Stop: 05/08/23 08:59 Last Admin: 04/13/23 09:47 Dose: 5,000 units Warfarin Sodium (Warfarin Sod 2.5 Mg Tab) 2.5 mg PO TuTh@1600 [facility] Stop: 05/13/23 15:59 Warfarin Sodium (Warfarin Sod 5 Mg Tab) 5 mg PO SuMoWeFrSa@1600 [facility] Stop: 05/10/23 15:59 Last Admin: 04/11/23 18:11 Dose: 5 mg Warfarin Sodium (Warfarin Sod 7.5 Mg Tab) 7.5 mg PO DAILY@1600 [facility] Stop: 05/12/23 15:59 Last Admin: 04/12/23 16:28 Dose: 7.5 mg (3) COPD (chronic obstructive pulmonary disease) COPD type: unspecified COPD Qualified Code(s): J44.9 - Chronic obstructive pulmonary disease, unspecified
[2023-04-13] MEDS: GABAPENTIN 800 MG TAB PO SCH ×2 (14:18→21:05)
[2023-04-13] MEDS ORDERED: WARFARIN SOD 2.5 MG TAB PO SCH (16:00)
[2023-04-13] MEDS: WARFARIN SOD 7.5 MG TAB PO SCH (17:24)
[2023-04-13] MEDS: PROMETHAZINE HCL 25 MG TAB PO PRN (21:01)
[2023-04-13] MEDS: ATORVASTATIN 40 MG TAB PO SCH (21:03)
[2023-04-13] MEDS: AZITHROMYCIN 250 MG in DEXTROSE 5% 250 ML IV SCH (21:30)
[2023-04-14] MEDS: HEPARIN SODIUM/DEXTROSE 25,000 UNITS/500 ML BAG IV SCH ×2 (01:30→17:13)
[2023-04-14] MEDS ORDERED: SODIUM CHLORIDE 0.65% NA SOLN 45 ML (OCEAN) ONE (06:36)
[2023-04-14] MEDS: PANTOprazole 40 MG TAB PO SCH (06:40)
[2023-04-14] MEDS: BUDESONIDE 0.5 MG/2 ML VIAL (PULMICORT) NEB SCH ×2 (07:03→19:40)
[2023-04-14] MEDS: FORMOTEROL 20 MCG/2 ML VIAL NEB SCH ×2 (07:03→19:41)
[2023-04-14] MEDS: ALBUT/IPRATROP 3MG/0.5MG NEB 3 ML VIAL NEB SCH ×4 (07:03→19:42)
[2023-04-14 08:13] LABS: INR 1.5 (0.9-1.1); Partial Thromboplastin Ratio 1.9; Prothrombin Time 15.6 Seconds (9.0-12.0)
[2023-04-14 08:14] LABS: Partial Thromboplastin Time 53.6 Seconds (21.0-31.0)
[2023-04-14] MEDS: LANTUS PER UNIT CHARGE SC SCH (08:37)
[2023-04-14] MEDS: INSULIN ASPART PER UNIT CHARGE SC SCH ×4 (08:38→21:14)
[2023-04-14] MEDS: FOLIC ACID 1 MG TAB PO SCH (08:39)
[2023-04-14] MEDS: ISOSORBIDE DINITRATE 10 MG TAB PO SCH (08:39)
[2023-04-14] MEDS: ADVANCED PROBIOTIC 1250 MG CAPSULE PO SCH ×3 (08:39→21:20)
[2023-04-14] MEDS: GABAPENTIN 800 MG TAB PO SCH ×3 (08:39→21:20)
[2023-04-14] MEDS: FINASTERIDE 5 MG TAB PO SCH (08:39)
[2023-04-14] MEDS: SPIRONOLACTONE 25 MG TAB PO SCH (08:40)
[2023-04-14] MEDS: DOCUSATE SODIUM 100 MG CAP PO SCH ×2 (08:40→21:30)
[2023-04-14] MEDS: THIAMINE HCL 100 MG TAB PO SCH (08:40)
[2023-04-14] MEDS: TAMSULOSIN HCL 0.4 MG CAP PO SCH (08:40)
[2023-04-14] MEDS: buprenorphine HCL 8 MG SUBL SL SCH ×2 (08:40→21:30)
[2023-04-14] MEDS: predniSONE 20 MG TAB PO SCH (08:41)
[2023-04-14] MEDS: MAGNESIUM OXIDE 400 MG TAB PO SCH (08:41)
[2023-04-14] MEDS: CYCLOBENZAPRINE HCL 10 MG TAB PO PRN (08:41)
[2023-04-14] MEDS: METOPROLOL SUCC 25MG EXT REL TAB PO SCH ×2 (08:41→21:35)
[2023-04-14] MEDS: NICOTINE 21 MG/24 HR TDSY TD SCH (08:42)
[2023-04-14] MEDS: FLUTICASONE PROPIONATE NA SPR 16 GM BTL SCH (08:44)
[2023-04-14] MEDS: FUROSEMIDE 40 MG TAB PO SCH ×2 (08:44→17:15)
[2023-04-14] MEDS: CHOLECALCIFEROL 5,000 UNITS 125 MCG TAB PO SCH (08:44)
[2023-04-14] MEDS: ASPIRIN 81 MG ECTAB PO SCH (08:44)
[2023-04-14] MEDS: FERROUS SULFATE 325 MG TAB PO SCH (08:44)
[2023-04-14] MEDS: DICLOFENAC SOD 1% GEL 100 GM TUBE EXT SCH ×2 (08:45→21:20)
[2023-04-14] MEDS: FAMOTIDINE 20 MG TAB PO SCH (08:46)
[2023-04-14] MEDS: POLYETHYLENE (MIRALAX) 17 GM PACK PO SCH (08:47)
[2023-04-14] MEDS: LINEZOLID 600 MG/300 ML BAG IV SCH ×2 (10:58→21:46)
[2023-04-14] MEDS: buprenorphine HCL 2 MG SUBL SL SCH (12:16)
[2023-04-14] MEDS: cefTRIAXone SODIUM 2,000 MG in DEXTROSE 5% 50 ML IV SCH (12:25)
--- NOTE | 2023-04-14 12:29 | Pharmacy Report ---
Pharmacy Glycemic Short Note 2 - Date of Service April 14, 2023 - Glycemic Short BSG Results (Last 24 hours): 04/13/23 04/13/23 04/14/23 16:37 20:01 07:17 POC Glucose 130 H 139 H 123 H 04/14/23 11:19 POC Glucose 122 H OUTPATIENT ANTIDIABETIC REGIMEN: * Lantus 20 units BID * Novolog 10 units TIDM * HbA1c: 7.8% (04/08/23) ASSESSMENT: 04/14: * Patient received 93 units of insulin yesterday, 22 of which were basal. BSGs were [phone] and today's fasting was 123 mg/dL. * BSGs remain stable so will continue with current regimen. Of note, lantus was decreased slightly yesterday due to downtrend of fasting BSG. * Patient continues on prednisone 20mg and is tolerating a diet. 04/12: * Patient received 52 units of insulin yesterday, 25 of which were basal. BSGs were: [phone]. Fasting BSG remains stable this morning at 135 mg/dL. * Patient was transitioned to PO prednisone 20mg 2 days ago. Patient resumed a diet yesterday, will monitor if further changes needed due to this. * Continue current Lantus and NovoLog. Will continue to trend elevation in dinner BSG and will plan to adjust tomorrow if trend continues. 04/09: * Bill received 71 units of insulin yesterday, 45 units basal + 26 units bolus. BSGs were: [phone] mg/dL. * Ceftriaxone has been discontinued. Remains on Azithromycin. Remains NPO at this time. IV Methylprednisolone was discontinued after the 40 mg dose was given this AM. Will be started on Prednisone 20 mg PO daily tomorrow morning. That will be a 60% reduction in steroid dosing. * Will split Lantus dosing BID to match home regimen. Fasting was significantly elevated at 221 mg/dL this AM. Despite steroids being decreased, will still try to provide the same total daily dose of 45 units today in hopes that it improves fasting BSG to goal range. * No change to Novolog. 04/08: * 52 yo M well-known to our glycemic service admitted 04/07 w AMS, COPD exacerbation. Currently NPO and on steroids * Prior admissions while on similar dose of steroids reviewed - patient receives about 80 units Lantus daily those admissions, but also ordered a diet. Will approximately halve that dose given NPO status. Additional Lantus tonight if patient ends up being ordered a diet * Will utilize Novolog regimen similar to previous admissions while on similar steroid dose, but slightly looser given NPO status PLAN FOR INPATIENT GLYCEMIC CONTROL: * Basal insulin * Lantus 22 units SC AM * Bolus insulin * NovoLog per scale ACHS or Q6hrs while NPO * Goal Range: Low 110 mg/dL - High 140 mg/dL * Correction Factor: 10 mg/dL/unit * Nutritional / Prandial insulin per carb ratio of 1 unit per 3 grams CHO consumed
--- NOTE | 2023-04-14 15:01 | Hospitalist Progress Note ---
Date of Service April 14, 2023 Assessment & Plan (1) SOB (shortness of breath): Plan: Patient is a 52 yr male who presents with shortness of breath and also found to be altered mental status. Acute on chronic respiratory failure with hypoxia Secondary to COPD exacerbation and is complicated by other comorbid conditions like CHF, fluid overload and obesity, sleep apnea --CXR:No acute chest disease. Continue nebulizers--can switch to performorist/budesonide (Breztri) MDI at discharge.. Finished 5 day course of prednisone. Finish azithromycin course as ordered Appreciate Pulmonology input, recommend outpatient sleep study and follow up with [facility] pulmonology Acute metabolic encephalopathy Likely multifactorial DD: Hypercarbia and superimposed UTI -CT Head:No acute intracranial hemorrhage, midline shift, or mass effect. -Hypercarbia noted on ABG --Drug screen negative --Normal ammonia, TSH -Could be secondary to complicated UTI Mental status has been normalized Has UTI with Klebsiella pneumoniae and Enterococcus faecium VRE Fontaine catheter changed here Day 5 of antibiotics (linezolid and ceftriaxone). Can switch to oral antibiotics at time of discharge to complete 7-10 day course (PO linezolid and cefnidir 300mg BID) Hypokalemia Hypomagnesia Hyponatremia Replete electrolytes as needed Supratherapeutic INR INR 9.4 on admission for unclear reasons--patient reports he had a 20lb weight gain recently Coumadin has been held. Now resumed at 7.5mg daily (his home dose was 5mg daily, except two days a week it is 2.5mg )--> will reduce to 5mg daily and resume home dose at discharge MAHAMED Cr 1.4 Lasix and spironolactone held on admission--now resumed renal function back to [place] Chronic diastolic CHF continue lasix and spironolactone difficult to assess volume status due to body habitus. . DM II HbA1C: 7.8 Continue insulin while hospitalized Monitor blood glucose levels Glycemic pharmacy consulted Abnormal EKG Negative cardiac enzymes Repeat EKG no signs of acute ischemia H/O PE On coumadin and heparin drip, INR 1.5 Chronic opioid use Chronic pain Anxiety buprenorphine, gabapentin, Ativan, and hydroxyzine held on admission --buprenorphine and gabapentin resumed with improved mental status Hypertension Continue metoprolol DVT Px: heparin drip Code Status Full code PT and OT have been ordered. Patient declines SNF, wants to return home disposition-- Plan for discharge once INR is >2 (2) Acute UTI: (3) COPD (chronic obstructive pulmonary disease): (4) Hypokalemia: (5) Hypomagnesemia: Admission and Anticipated Discharge Date Admission Date: April 07, 2023 Subjective Breathing feels well No wheezing currently Currently on RA Requesting IV tylenol for chronic pain which patient reports works better than oral formulation Review of Systems Review of Systems: as above Physical Exam Physical Exam: sitting in chair, no acute distress, non toxic Respiratory: clear, no wheezing/rhonchi/rales Cardiovascular: regular rate and rhythm, no murmurs/rubs Gastrointestinal (Abdomen): soft, non tender Skin: lower extremity skin thickened, dark, with chronic venous stasis skin changes Neurologic: awake, alert, spontaneously moving extremities Genitourinary: fontaine catheter is draining clear yellow urine Results & Data Results & Data Vital Signs (Past 12 Hours) Vital Signs Temp Pulse Pulse Resp BP BP Pulse Ox 04/14/23 11:20 37.1 C 100 H 20 117/82 93 04/14/23 11:06 95 H 20 91 04/14/23 08:00 04/14/23 07:22 36.7 C 87 18 126/95 95 04/14/23 07:06 87 20 96 04/14/23 04:24 36.7 C 80 20 112/75 98 04/14/23 03:21 86 30 H 98 O2 Del Method FiO2 04/14/23 11:20 Room Air 04/14/23 11:06 Room Air 04/14/23 08:00 Room Air 04/14/23 07:22 Room Air 04/14/23 07:06 Room Air 04/14/23 04:24 Room Air 04/14/23 03:21 35 (3) COPD (chronic obstructive pulmonary disease) COPD type: unspecified COPD Qualified Code(s): J44.9 - Chronic obstructive pulmonary disease, unspecified
[2023-04-14] MEDS: ACETAMINOPHEN 1,000 MG/100 ML VIAL IV PRN ×2 (15:17→23:36)
[2023-04-14] MEDS ORDERED: WARFARIN SOD 5 MG TAB PO SCH (16:00)
[2023-04-14] MEDS: ATORVASTATIN 40 MG TAB PO SCH (21:19)
[2023-04-14] MEDS: AZITHROMYCIN 250 MG in DEXTROSE 5% 250 ML IV SCH (21:37)
[2023-04-14] MEDS ORDERED: MELATONIN 3 MG TAB PO STA (22:47)
[2023-04-15] MEDS ORDERED: INSULIN ASPART PER UNIT CHARGE SC SCH (02:00)
[2023-04-15] MEDS: CYCLOBENZAPRINE HCL 10 MG TAB PO PRN ×3 (02:30→20:32)
[2023-04-15] MEDS: PANTOprazole 40 MG TAB PO SCH (05:30)
[2023-04-15] MEDS: BUDESONIDE 0.5 MG/2 ML VIAL (PULMICORT) NEB SCH ×2 (07:17→19:42)
[2023-04-15] MEDS: ALBUT/IPRATROP 3MG/0.5MG NEB 3 ML VIAL NEB SCH ×4 (07:17→20:51)
[2023-04-15] MEDS: FORMOTEROL 20 MCG/2 ML VIAL NEB SCH ×2 (07:17→19:42)
[2023-04-15 08:09] LABS: INR 1.9 (0.9-1.1); Partial Thromboplastin Ratio 1.8; Prothrombin Time 19.8 Seconds (9.0-12.0)
[2023-04-15] MEDS: INSULIN ASPART PER UNIT CHARGE SC SCH ×5 (08:14→21:09)
[2023-04-15 08:15] LABS: Partial Thromboplastin Time 51.4 Seconds (21.0-31.0)
[2023-04-15] MEDS: buprenorphine HCL 8 MG SUBL SL SCH ×2 (08:15→20:48)
[2023-04-15] MEDS: HEPARIN SODIUM/DEXTROSE 25,000 UNITS/500 ML BAG IV SCH (08:16)
[2023-04-15] MEDS: ACETAMINOPHEN 1,000 MG/100 ML VIAL IV PRN ×2 (08:21→20:32)
[2023-04-15] MEDS: FLUTICASONE PROPIONATE NA SPR 16 GM BTL SCH (08:28)
[2023-04-15] MEDS: NICOTINE 21 MG/24 HR TDSY TD SCH (08:29)
[2023-04-15] MEDS: POLYETHYLENE (MIRALAX) 17 GM PACK PO SCH (08:31)
[2023-04-15] MEDS: DICLOFENAC SOD 1% GEL 100 GM TUBE EXT SCH ×2 (08:34→20:35)
[2023-04-15] MEDS: FUROSEMIDE 40 MG TAB PO SCH ×2 (08:35→16:54)
[2023-04-15] MEDS: FOLIC ACID 1 MG TAB PO SCH (08:35)
[2023-04-15] MEDS: FINASTERIDE 5 MG TAB PO SCH (08:35)
[2023-04-15] MEDS: ISOSORBIDE DINITRATE 10 MG TAB PO SCH (08:36)
[2023-04-15] MEDS: MAGNESIUM OXIDE 400 MG TAB PO SCH (08:36)
[2023-04-15] MEDS: FERROUS SULFATE 325 MG TAB PO SCH (08:36)
[2023-04-15] MEDS: GABAPENTIN 800 MG TAB PO SCH ×3 (08:36→20:34)
[2023-04-15] MEDS: METOPROLOL SUCC 25MG EXT REL TAB PO SCH ×2 (08:36→20:33)
[2023-04-15] MEDS: ADVANCED PROBIOTIC 1250 MG CAPSULE PO SCH ×3 (08:36→20:33)
[2023-04-15] MEDS: DOCUSATE SODIUM 100 MG CAP PO SCH ×2 (08:37→20:48)
[2023-04-15] MEDS: ASPIRIN 81 MG ECTAB PO SCH (08:37)
[2023-04-15] MEDS: FAMOTIDINE 20 MG TAB PO SCH (08:37)
[2023-04-15] MEDS: CHOLECALCIFEROL 5,000 UNITS 125 MCG TAB PO SCH (08:37)
[2023-04-15] MEDS: TAMSULOSIN HCL 0.4 MG CAP PO SCH (08:38)
[2023-04-15] MEDS: SPIRONOLACTONE 25 MG TAB PO SCH (08:38)
[2023-04-15] MEDS: THIAMINE HCL 100 MG TAB PO SCH (08:38)
[2023-04-15] MEDS ORDERED: LANTUS PER UNIT CHARGE SC SCH (09:00)
[2023-04-15 09:27] LABS: BUN Creatinine Ratio 14.4 (10-20); Calcium 9.5 mg/dl (8.6-10.3); Creatinine Clr Calc Pharmacy 126.4 ml/min; Est GFR (African American) 76.2 ml/min; Est GFR (Non-African American) 65.8 ml/min; Hematocrit (blood only) 38.4 % (42.0-52.0); Magnesium 1.4 mg/dl (1.7-2.4); Mean Corpuscular Hemoglobin 25.5 pg (25.0-34.0); Mean Corpuscular Hgb Conc 31.3 g/dL (32.0-36.0); Mean Corpuscular Volume 81.5 fL (80.0-100.0); Mean Platelet Volume 11.6 fL (9.4-12.4); Platelet Count 246 K/uL (130-400); Potassium 3.4 mmol/L (3.5-5.1); RDW Coefficient of Variation 17.2 % (11.5-14.5); RDW Standard Deviation 49.9 fL (36.4-46.3); Red Blood Count 4.71 M/uL (4.70-6.10)
[2023-04-15] MEDS: LINEZOLID 600 MG TAB PO SCH ×2 (10:23→20:40)
[2023-04-15] MEDS: CEFDINIR 300 MG CAP PO SCH ×2 (10:23→20:34)
[2023-04-15] MEDS: POTASSIUM CHLORIDE CRTAB 20 MEQ TABCR PO SCH ×2 (10:23→20:33)
[2023-04-15] MEDS: POTASSIUM CHLORIDE / WTR 10 MEQ/100 ML PLCT IV SCH ×2 (10:23→11:36)
[2023-04-15] MEDS: MAGNESIUM SULFATE / D5W 1 GM/100 ML BAG IV SCH ×2 (10:24→12:08)
--- NOTE | 2023-04-15 11:51 | Pharmacy Report ---
Pharmacy Glycemic Short Note 2 - Date of Service April 15, 2023 - Glycemic Short BSG Results (Last 24 hours): 04/14/23 04/14/23 04/15/23 16:20 20:08 01:45 Glucose POC Glucose 155 H 154 H 179 H 04/15/23 04/15/23 04/15/23 07:08 07:11 11:19 Glucose 168 H POC Glucose 178 H 148 H OUTPATIENT ANTIDIABETIC REGIMEN: * Lantus 20 units BID * Novolog 10 units TIDM * HbA1c: 7.8% (04/08/23) ASSESSMENT: 04/15: * BSGs within goal range the last 24h, [phone]/dL. Received 22 units of basal and 90 units of bolus insulin yesterday. Fasting BSG today trending upward, 178mg/dL. * Steroids discontinued, tolerating diet- other stressors stable. * Lantus increased to 25 units daily given fasting at the upper end of goal. Novolog parameters loosened to 08/04 based upon historical glycemic data given steroids discontinued. 04/14: * Patient received 93 units of insulin yesterday, 22 of which were basal. BSGs were [phone] and today's fasting was 123 mg/dL. * BSGs remain stable so will continue with current regimen. Of note, lantus was decreased slightly yesterday due to downtrend of fasting BSG. * Patient continues on prednisone 20mg and is tolerating a diet. 04/12: * Patient received 52 units of insulin yesterday, 25 of which were basal. BSGs were: [phone]. Fasting BSG remains stable this morning at 135 mg/dL. * Patient was transitioned to PO prednisone 20mg 2 days ago. Patient resumed a diet yesterday, will monitor if further changes needed due to this. * Continue current Lantus and NovoLog. Will continue to trend elevation in dinner BSG and will plan to adjust tomorrow if trend continues. 04/09: * Bill received 71 units of insulin yesterday, 45 units basal + 26 units bolus. BSGs were: [phone] mg/dL. * Ceftriaxone has been discontinued. Remains on Azithromycin. Remains NPO at this time. IV Methylprednisolone was discontinued after the 40 mg dose was given this AM. Will be started on Prednisone 20 mg PO daily tomorrow morning. That will be a 60% reduction in steroid dosing. * Will split Lantus dosing BID to match home regimen. Fasting was significantly elevated at 221 mg/dL this AM. Despite steroids being decreased, will still try to provide the same total daily dose of 45 units today in hopes that it improves fasting BSG to goal range. * No change to Novolog. 04/08: * 52 yo M well-known to our glycemic service admitted 04/07 w AMS, COPD exac erbation. Currently NPO and on steroids * Prior admissions while on similar dose of steroids reviewed - patient receives about 80 units Lantus daily those admissions, but also ordered a diet. Will approximately halve that dose given NPO status. Additional Lantus tonight if patient ends up being ordered a diet * Will utilize Novolog regimen similar to previous admissions while on similar steroid dose, but slightly looser given NPO status PLAN FOR INPATIENT GLYCEMIC CONTROL: * Basal insulin * Lantus 25 units SC AM * Bolus insulin * NovoLog per scale ACHS or Q6hrs while NPO * Goal Range: Low 110 mg/dL - High 140 mg/dL * Correction Factor: 20 mg/dL/unit * Nutritional / Prandial insulin per carb ratio of 1 unit per 7 grams CHO consumed
[2023-04-15] MEDS: buprenorphine HCL 2 MG SUBL SL SCH (12:05)
[2023-04-15] MEDS ORDERED: WARFARIN SOD 2.5 MG TAB PO SCH (16:00)
[2023-04-15 16:38] LABS: Base Excess ABG 7.8 mEq/L (-9-1.8); HCO3 ABG 33 mmol/L (19-24); Oxygen Saturation ABG 97.8 % (90-95); PCO2 ABG 49 mmHg (35-46); PO2 ABG 85 mmHg (80-95); pH ABG 7.44 (7.35-7.45)
[2023-04-15 16:42] LABS: Allen Test Pos (Pos)
--- NOTE | 2023-04-15 18:32 | Hospitalist Progress Note ---
Date of Service April 15, 2023 Assessment & Plan (1) SOB (shortness of breath): Plan: Patient is a 52 yr male who presents with shortness of breath and also found to be altered mental status. Acute on chronic respiratory failure with hypoxia Secondary to COPD exacerbation and is complicated by other comorbid conditions like CHF, fluid overload and obesity, sleep apnea --CXR:No acute chest disease. Continue nebulizers--can switch to performorist/budesonide (Breztri) MDI at discharge.. Finished 5 day course of prednisone. Finish azithromycin course as ordered Appreciate Pulmonology input, recommend outpatient sleep study and follow up with [facility] pulmonology Acute metabolic encephalopathy Likely multifactorial DD: Hypercarbia and superimposed UTI -CT Head:No acute intracranial hemorrhage, midline shift, or mass effect. -Hypercarbia noted on ABG --Drug screen negative --Normal ammonia, TSH -Could be secondary to complicated UTI Mental status has been normalized Has UTI with Klebsiella pneumoniae and Enterococcus faecium VRE Lloyd catheter changed here Day 6 of antibiotics (IV linezolid and ceftriaxone--> cefnidir +PO linezolid). IV antibiotics switched to oral today. Copay for both antibiotics is $18 Hypokalemia Hypomagnesia Hyponatremia Repleted today, repeat BMP tomorrow Supratherapeutic INR INR 9.4 on admission for unclear reasons--patient reports he had a 20lb weight gain recently Coumadin has been held then resumed at 7.5mg daily (his home dose was 5mg daily, except two days a week it is 2.5mg )--> reduced to 5mg daily 04/14 and further reduced to 2.5mg daily today INR 1.9 anticipate lower coumadin dose will be needed while he is on antibiotics MAHAMED Cr 1.4 Lasix and spironolactone held on admission--now resumed renal function back to baseline Chronic diastolic CHF continue lasix and spironolactone difficult to assess volume status due to body habitus. . DM II HbA1C: 7.8 Continue insulin while hospitalized Monitor blood glucose levels Glycemic pharmacy consulted Abnormal EKG Negative cardiac enzymes Repeat EKG no signs of acute ischemia H/O PE On coumadin INR 1.9. Heparin drip discontinued today Chronic opioid use Chronic pain Anxiety buprenorphine, gabapentin, Ativan, and hydroxyzine held on admission --buprenorphine and gabapentin resumed with improved mental status Hypertension Continue metoprolol DVT Px: Coumadin, INR 1.9 Code Status Full code PT and OT have been ordered. Patient declines SNF, wants to return home disposition-- Plan for discharge tomorrow (2) Acute UTI: (3) COPD (chronic obstructive pulmonary disease): (4) Hypokalemia: (5) Hypomagnesemia: Admission and Anticipated Discharge Date Admission Date: April 07, 2023 Subjective Slept more today, reports he hasn't slept well the past 2 nights. Concerned about cost of antibiotics and logistics about returning home. Review of Systems Review of Systems: as above Physical Exam Physical Exam: Laying in bed, no acute distress, morbidly obese Neck: thick Respiratory: Breathing comfortably on room air, no wheezing/rhonchi/rales Cardiovascular: regular rate and rhythm, no murmurs/rubs Gastrointestinal (Abdomen): soft, non tender Musculoskeletal: no edema Skin: lower extremity with chronic venous stasis skin changes--skin is hyperpigmented and thickened Neurologic: awake, alert, spontaneously moving extremities Results & Data Results & Data Vital Signs (Past 12 Hours) Vital Signs Temp Pulse Resp BP Pulse Ox O2 Del Method 04/15/23 15:22 36.4 C L 90 20 125/91 96 Room Air 04/15/23 08:00 Room Air 04/15/23 11:18 37.0 C 86 20 112/76 94 Room Air 04/15/23 11:12 86 20 94 Room Air 04/15/23 07:20 85 20 93 Room Air 04/15/23 07:08 37.0 C 88 20 123/72 94 Room Air (3) COPD (chronic obstructive pulmonary disease) COPD type: unspecified COPD Qualified Code(s): J44.9 - Chronic obstructive pulmonary disease, unspecified
[2023-04-15] MEDS: ATORVASTATIN 40 MG TAB PO SCH (20:33)
[2023-04-16] MEDS: PANTOprazole 40 MG TAB PO SCH (05:48)
[2023-04-16 06:53] LABS: BUN Creatinine Ratio 10.7 (10-20); Calcium 9.5 mg/dl (8.6-10.3); Creatinine Clr Calc Pharmacy 128.8 ml/min; Est GFR (African American) 78.5 ml/min; Est GFR (Non-African American) 67.7 ml/min; Magnesium 1.9 mg/dl (1.7-2.4); Potassium 3.7 mmol/L (3.5-5.1)
[2023-04-16 07:03] LABS: INR 2.1 (0.9-1.1); Partial Thromboplastin Ratio 1.2; Partial Thromboplastin Time 34.7 Seconds (21.0-31.0); Prothrombin Time 21.7 Seconds (9.0-12.0)
[2023-04-16] MEDS: BUDESONIDE 0.5 MG/2 ML VIAL (PULMICORT) NEB SCH (07:20)
[2023-04-16] MEDS: FORMOTEROL 20 MCG/2 ML VIAL NEB SCH (07:20)
[2023-04-16] MEDS: ALBUT/IPRATROP 3MG/0.5MG NEB 3 ML VIAL NEB SCH (07:20)
[2023-04-16] MEDS: INSULIN ASPART PER UNIT CHARGE SC SCH (08:30)
[2023-04-16] MEDS: buprenorphine HCL 8 MG SUBL SL SCH (08:30)
[2023-04-16] MEDS: FERROUS SULFATE 325 MG TAB PO SCH (08:31)
[2023-04-16] MEDS: MAGNESIUM OXIDE 400 MG TAB PO SCH (08:31)
[2023-04-16] MEDS: ASPIRIN 81 MG ECTAB PO SCH (08:31)
[2023-04-16] MEDS: FUROSEMIDE 40 MG TAB PO SCH (08:32)
[2023-04-16] MEDS: CHOLECALCIFEROL 5,000 UNITS 125 MCG TAB PO SCH (08:32)
[2023-04-16] MEDS: FAMOTIDINE 20 MG TAB PO SCH (08:32)
[2023-04-16] MEDS: SENNA 8.6 MG TAB PO PRN (08:32)
[2023-04-16] MEDS: FOLIC ACID 1 MG TAB PO SCH (08:32)
[2023-04-16] MEDS: THIAMINE HCL 100 MG TAB PO SCH (08:32)
[2023-04-16] MEDS: METOPROLOL SUCC 25MG EXT REL TAB PO SCH (08:33)
[2023-04-16] MEDS: ADVANCED PROBIOTIC 1250 MG CAPSULE PO SCH (08:33)
[2023-04-16] MEDS: ISOSORBIDE DINITRATE 10 MG TAB PO SCH (08:33)
[2023-04-16] MEDS: GABAPENTIN 800 MG TAB PO SCH (08:33)
[2023-04-16] MEDS: POTASSIUM CHLORIDE CRTAB 20 MEQ TABCR PO SCH (08:34)
[2023-04-16] MEDS: CEFDINIR 300 MG CAP PO SCH (08:34)
[2023-04-16] MEDS: NICOTINE 21 MG/24 HR TDSY TD SCH (08:35)
[2023-04-16] MEDS: FINASTERIDE 5 MG TAB PO SCH (08:35)
[2023-04-16] MEDS: SPIRONOLACTONE 25 MG TAB PO SCH (08:35)
[2023-04-16] MEDS: POLYETHYLENE (MIRALAX) 17 GM PACK PO SCH (08:36)
[2023-04-16] MEDS: TAMSULOSIN HCL 0.4 MG CAP PO SCH (08:37)
[2023-04-16] MEDS: DICLOFENAC SOD 1% GEL 100 GM TUBE EXT SCH (08:43)
[2023-04-16] MEDS: FLUTICASONE PROPIONATE NA SPR 16 GM BTL SCH (08:43)
[2023-04-16] MEDS: LINEZOLID 600 MG TAB PO SCH (08:43)
[2023-04-16] MEDS: DOCUSATE SODIUM 100 MG CAP PO SCH (08:43)
[2023-04-16] MEDS ORDERED: LANTUS PER UNIT CHARGE SC SCH (09:00)
--- NOTE | 2023-04-20 21:31 | Discharge Summary ---
Date of Service April 20, 2023 Admission HPI Per Admitting Provider 52-year-old male with past medical significant for COPD, morbid obesity, type 2 diabetes, chronic diastolic heart failure, hypertension, hyperlipidemia, history of PE on Coumadin, mood disorder, medication noncompliance, current active smoker, chronic opioid abuse, chronic indwelling Lloyd catheter, history of subdural hematoma, history of subarachnoid hemorrhage, history of iron deficiency anemia, depression with anxiety, venous insufficiency, presents with shortness of breath and currently also very drowsy. Patient, shortness of breath to the ER was given Solu-Medrol. IV antibiotics. Currently very drowsy difficult to arouse. Cannot tell his name but goes back to sleep. Hemodynamics are okay. Patient is INR is greater than 9. No leukocytosis. Potassium of 2.6. Sodium 133. Creatinine 1.4. Mag 1.5. Urinalysis positive but patient has chronic Lloyd. History of UTIs in the past. Patient history of multiple admissions. Currently very drowsy and could not give any history Principal Diagnosis Acute COPD exacerbation Acute metabolic encephalopathy Lloyd catheter associated UTI Discharge Exam Patient was seen on the day of discharge. He felt well, felt back to baseline. He appeared well. He was already dressed in his home clothes. Breathing comfortably, lungs are clear--no wheezing. CV-- heart sounds were regular rate and rhythm Legs with no swelling Skin with chronic hyperpigmentation of lower extremities Discharge Data Allergies Allergy/AdvReac Type Severity Reaction Status Date / Time cefepime Allergy Intermediate rash Verified 04/07/23 22:17 daptomycin Allergy Intermediate rash Verified 04/07/23 22:17 fentanyl Allergy Intermediate RASH/HIVES/SKIN Verified 04/07/23 22:17 REDNESS acetaminophen [From Tylenol] AdvReac Intermediate IRRITATES Verified 04/07/23 22:17 & UPSET STOMACH ibuprofen AdvReac Intermediate Nausea Verified 04/07/23 22:17 naloxone AdvReac Intermediate extremely Verified 04/07/23 22:17 sick valproic acid AdvReac Intermediate PANCREATITS Verified 04/07/23 22:17 Consultations 04/07/23 22:05 ED Decision to Admit Stat 04/08/23 10:26 Consult Pulmonology Routine Ordered Studies 04/07/23 23:18 CT head/brain wo con Stat Hospital Course (1) SOB (shortness of breath): (2) Acute UTI: (3) COPD (chronic obstructive pulmonary disease): (4) Hypokalemia: (5) Hypomagnesemia: Plan Patient is a 52 yr male who presents with shortness of breath and also found to be altered mental status. Acute on chronic respiratory failure with hypoxia Secondary to COPD exacerbation and is complicated by other comorbid conditions like CHF, morbid obesity and possibly DARIA --CXR:No acute chest disease. Continued nebulizers here and discharged home on Breztri MDI at discharge. Patient also received a prescription for formoterol/budesonide Nebulizer in the event Breztri is unaffordable for him. Also received Duoneb nebulizers PRN for episodes of SOB at home Finished 5 day course of prednisone. Finish azithromycin course. Appreciate Pulmonology input, recommend outpatient sleep study and follow up with [facility] pulmonology Acute metabolic encephalopathy Likely multifactorial due to Hypercarbia and superimposed UTI -CT Head:No acute intracranial hemorrhage, midline shift, or mass effect. -Hypercarbia noted on ABG --Drug screen negative --Normal ammonia, TSH -Could be secondary to complicated UTI Mental status back to baseline Has UTI with Klebsiella pneumoniae and Enterococcus faecium VRE Lloyd catheter associated UTI, present on admission Lloyd catheter changed here. Received 6 days of Linezolid and ceftriaxone in the hospital. Discharged home to finish a 10 day course with PO linezolid and Cefnidir Copay for both antibiotics is verified to be affordable at $18 Supratherapeutic INR INR 9.4 on admission for unclear reasons--patient reports he had a 20lb weight gain recently Coumadin held on admission then later resumed INR 2.1 at discharge He was discharged on coumadin 2.5mg daily while on antibiotics (his usual dose was coumadin 5mg daily except Tues/Thurs when it is 2.5mg) Repeat INR in 2-3 days with result to be followed at coumadin clinic MAHAMED Lasix and spironolactone held on admission--now resumed renal function back to baseline Tolerating home diuretics at time of discharge Chronic diastolic CHF continued on lasix and spironolactone Hypokalemia Hypomagnesia Hyponatremia Repleted Total Time Total Time Spent Total Time Spent (In Minutes): 60 Discharge Plan Discharge Items Patient Disposition: Home - Self-Care Reason For Visit: COPD EX, MAHAMED, AMS Discharge Diagnosis: Acute COPD exacerbation Acute metabolic encephalopathy Lloyd catheter associated UTI Activity: Resume your previous activity Non-emergency contact: Primary Care Provider and Court Orderly Call non-emergency contact if: you have any medication questions Follow-up/Referrals: Roberto Askew MD [Primary Care Provider] - Diet: Heart Healthy Addtl Attending Provider Instructions: Please follow up with your primary care doctor and lung doctor (glenny) You should speak with your PCP about a sleep study Your INR today is 2.1. You can continue coumadin 2.5mg daily. INR check on Wednesday For your breathing, you were prescribed Breztri Inhaler. If Breztri is not covered by your insurance, you are also being prescribed a nebulizer (Budesonide and Formoterol twice a day). You were also prescribed Duoneb (albuterol/ipratropium) to be used as needed for shortness of breath You will finish 3 more days of antibiotics for your UTI You requested a prednisone taper. You were prescribed prednisone 20mg daily x 3 days, 10 mg daily x 3 days, then 5mg daily x 3 days. Pending Studies at Discharge: No Stand-Alone Forms: [facility], Smoking Cessation Medications and DC Order Prescriptions: New Breztri Aerosphere 160-9-4.8 mcg/actuation HFA aerosol inhaler 2 inh inhalation BID Qty: 10.7 0RF ipratropium-albuterol 0.5 mg-3 mg(2.5 mg base)/3 mL Solution For Nebulization 3 ml NEB QIDR PRN (Reason: shortness of breath) 30 Days Qty: 120 0RF formoterol fumarate [Perforomist] 20 mcg/2 mL Solution For Nebulization 20 mcg NEB BIDR 30 Days Qty: 60 0RF budesonide 0.5 mg/2 mL Suspension For Nebulization 0.5 mg NEB BIDR 30 Days Qty: 60 0RF prednisone 5 mg tablet 5 mg PO DIRECTED Qty: 21 0RF Rx Instructions: see taper instructions. 20mg daily x 3 days. 10 mg daily x 3 days. 5mg daily x 3 days Continued promethazine 12.5 mg tablet 12.5 mg PO BID PRN (Reason: nausea and vomiting) Qty: 10 0RF tamsulosin [Flomax] 0.4 mg capsule 0.8 mg PO QAM Qty: 180 3RF polyethylene glycol 3350 [Miralax] 17 gram powder in packet 17 g PO QAM nitroglycerin [Nitrostat] 0.4 mg tablet, sublingual 0.4 mg Sublingual DIRECTED PRN (Reason: CHEST PAIN) Rx Instructions: PLACE ONE TABLET UNDER THE TONGUE EVERY 5 MINUTES FOR UP TO 3 DOSES OVER 15 MINUTES IF NEEDED FOR CHEST PAIN nystatin 100,000 unit/gram Powder 1 applic TOPICAL TID PRN (Reason: Skin Irritation) Rx Instructions: APPLY DIRECTED TO ABDOMINAL FOLDS cyclobenzaprine 10 mg Tablet 10 mg PO BID PRN (Reason: Muscle Spasm) docusate sodium 100 mg Capsule 100 mg PO BID duloxetine 60 mg capsule,delayed release(DR/EC) 60 mg PO DAILY famotidine 20 mg tablet 20 mg PO DAILY fluticasone propionate 50 mcg/actuation spray,suspension 2 spray Intranasal DAILY aspirin [Ecotrin Low Strength] 81 mg tablet,delayed release (DR/EC) 81 mg PO QAM finasteride 5 mg tablet 5 mg PO QAM metoprolol succinate 50 mg Tablet Extended Release 24 Hr 75 mg PO BID spironolactone 25 mg Tablet 25 mg PO QAM atorvastatin 80 mg tablet 80 mg PO QPM Rx Instructions: TAKE THIS MEDICATION EVERY AFTERNOON sennosides [senna] 8.6 mg Tablet 8.6 mg PO DAILY PRN (Reason: Constipation) folic acid 1 mg Tablet 1 mg PO QAM furosemide [Lasix] 40 mg tablet 40 mg PO BID albuterol sulfate 90 mcg/actuation Hfa Aerosol Inhaler 2 puff INHALATION Q4 PRN (Reason: Dyspnea) omeprazole 20 mg Capsule,Delayed Release(Dr/Ec) 20 mg PO DAILYBB gabapentin 800 mg tablet 800 mg PO TID buprenorphine HCl 8 mg tablet, sublingual 20 mg SUBLINGUAL DAILY Rx Instructions: 2 and half tab daily glipizide 10 mg tablet 10 mg PO BID urea [Ureacin-20] 20 % Cream 1 applic TOPICAL BID magnesium oxide 400 mg (241.3 mg magnesium) tablet 400 mg PO DAILY ferrous sulfate 325 mg (65 mg iron) Tablet 325 mg PO QAM Rx Instructions: Take with breakfast hydroxyzine HCl 25 mg Tablet 25 mg PO QID PRN (Reason: Anxiety) ondansetron HCl 4 mg Tablet 4 mg PO Q8H PRN (Reason: NAUSEA/VOMITING) benzonatate 100 mg Capsule 100 mg PO TID PRN (Reason: cough) Qty: 10 0RF diclofenac sodium [Voltaren Arthritis Pain] 1 % Gel 2 g EXT BID Qty: 50 0RF dextromethorphan-guaifenesin 10-100 mg/5 mL Syrup 5 ml PO Q6H PRN (Reason: cough) Qty: 500 0RF cholecalciferol (vitamin D3) 125 mcg (5,000 unit) Tablet 5,000 unit PO QAM Qty: 30 0RF Lactinex 1 million cell tablet,chewable 1 tab PO TID Qty: 30 0RF isosorbide dinitrate 30 mg tablet 30 mg PO DAILY guaifenesin [Mucinex] 600 mg Tablet Extended Release 12hr 1,200 mg PO BID lorazepam 0.5 mg tablet 0.5 mg PO Q8 PRN (Reason: Anxiety) Qty: 6 0RF nicotine [Nicoderm CQ] 21 mg/24 hr Patch 24 Hour 21 mg transdermal DAILY Qty: 28 0RF potassium chloride 20 mEq tablet extended release 40 meq PO BID insulin aspart U-100 [Novolog FlexPen U-100 Insulin] 100 unit/mL (3 mL) insulin pen 10 unit subcut TIDM Rx Instructions: take before meal insulin glargine [Lantus U-100 Insulin] 100 unit/mL solution 50 unit SC HS Changed warfarin 5 mg tablet 2.5 mg PO DAILY Qty: 14 0RF Rx Instructions: . Discontinued ipratropium-albuterol 0.5 mg-3 mg(2.5 mg base)/3 mL Solution For Nebulization 3 ml INHALATION Q6H PRN (Reason: Shortness Of Breath Or Wheezing) warfarin 5 mg tablet 5 mg PO SUMOWEFRSA Discharge Orders: Discharge Order (Routine); Ordered 04/16/23 Ordered By: Merle Musa Admission Data Admit Date/Time: 04/07/23 23:29 Attending Provider: Merle Musa Admit Provider: Everardo Ibarra Primary Care Provider: Roberto Askew Other Providers: Everardo Ibarra ; Misael Carpio ; Rashaun Rogel ; Duarte Landa ; Sj Yadav ; Ranjeet Mackey ; Vania No ; Quyen Bangura ; Dipesh Wright ; Augustus Vasquez Other Interventions: Discharge Summary Assessment (RN) Last Done: 04/16/23 10:38
== END 2023-04-16 11:09 | disposition home or self-care (01) | DRG 698 ==
LOC: ED 20:31 → SUATTDRO 23:29 → EDINP 23:29 → 2E 04-08 06:44

== ENCOUNTER 2023-05-03 18:30 | Observation (INO) ==
[2023-05-03 19:16] LABS: Basophils # (auto) 0.04 K/uL (0-0.2); Basophils % (auto) 0.2 %; Eosinophils # (auto) 0.33 K/uL (0-0.50); Eosinophils % (auto) 1.8 %; Hematocrit (blood only) 36.7 % (42.0-52.0); Hemoglobin 11.9 g/dl (14.0-18.0); Immature Granulocytes # (auto) 0.12 K/uL (0.01-0.20); Immature Granulocytes % (auto) 0.7 %; Lymphocytes # (auto) 2.36 K/uL (1.2-3.4); Lymphocytes % (auto) 12.9 %; Mean Corpuscular Hemoglobin 25.6 pg (25.0-34.0); Mean Corpuscular Hgb Conc 32.4 g/dL (32.0-36.0); Mean Corpuscular Volume 78.9 fL (80.0-100.0); Mean Platelet Volume 10.2 fL (9.4-12.4); Monocytes # (auto) 1.17 K/uL (0.11-0.59); Monocytes % (auto) 6.4 %; Neutrophils # (auto) 14.29 K/uL (1.40-6.50); Platelet Count 325 K/uL (130-400); RDW Coefficient of Variation 18.6 % (11.5-14.5); RDW Standard Deviation 49.9 fL (36.4-46.3); Red Blood Count 4.65 M/uL (4.70-6.10); White Blood Count 18.31 K/ul (4.8-10.8)
[2023-05-03 19:36] LABS: Alanine Aminotransferase 13 U/L (7-52); Albumin Globulin Ratio 0.9 (0.9-2); Albumin Level 3.4 gm/dl (3.4-5.0); Alkaline Phosphatase 104 U/L (34-104); Anion Gap 6 (3-11); BUN Creatinine Ratio 15.2 (10-20); Bilirubin,Total 0.7 mg/dl (0.2-1.0); Blood Urea Nitrogen 16 mg/dl (6-23); Calcium 9.4 mg/dl (8.6-10.3); Carbon Dioxide 37 mmol/L (21-32); Chloride 88 mmol/L (98-107); Creatinine Clr Calc Pharmacy 153.7 ml/min; Est GFR (African American) 94.1 ml/min; Est GFR (Non-African American) 81.2 ml/min; Globulin 3.6 gm/dl (2.5-4.0); Glucose 204 mg/dl (70-99(Fasting)); Sodium 131 mmol/L (136-145)
[2023-05-03 19:39] LABS: Troponin I High Sensitivity 11.5 pg/ml (0-20)
[2023-05-03 20:00] LABS: Partial Thromboplastin Ratio 3.6; Prothrombin Time > 90.0 Seconds (9.0-12.0)
[2023-05-03 20:08] LABS: INR > 9.5 (0.9-1.1)
[2023-05-03 20:09] LABS: Partial Thromboplastin Time 101.3 Seconds (21.0-31.0)
[2023-05-03 20:39] LABS: Potassium 2.5 mmol/L (3.5-5.1)
[2023-05-03] MEDS ORDERED: PHYTONADIONE 10 MG in DEXTROSE 5% 50 ML IV ONE (20:54)
[2023-05-03] MEDS ORDERED: FUROSEMIDE 40 MG/4 ML VIAL IV STA (20:54)
[2023-05-03] MEDS ORDERED: ALBUT/IPRATROP 3MG/0.5MG NEB 3 ML VIAL NEB STA (20:54)
[2023-05-03] MEDS ORDERED: levoFLOXacin/D5W 750 MG/150 ML BAG IV STA (20:59)
[2023-05-03] MEDS ORDERED: POTASSIUM CHLORIDE CRTAB 20 MEQ TABCR PO STA ×2 (21:05→23:39)
--- NOTE | 2023-05-03 21:13 | Emergency Department Note ---
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 28.14 mGy and DLP is 979.17 mGy-cm. Automated exposure control was utilized for the study. A dose lowering technique was utilized adhering to the principles of ALARA. Moderate artifact from motion, body habitus and scan field of view. COMPARISON: CT chest 01/28/23. FINDINGS: Lungs: Basilar linear scarring, stable. Otherwise, clear. No consolidation. Pulmonary arteries: No engorgement. Aorta: No thoracic aortic aneurysm. Pleural space: No effusion. No pneumothorax. Heart: Stable, moderate cardiomegaly. No significant pericardial effusion. Bones/joints: No sternal, vertebral, scapular or acute clavicle fracture, as imaged, with motion artifact and body habitus significantly limiting evaluation. Soft tissues: Fatty liver is stable. Lymph nodes: No enlarged lymph nodes. IMPRESSION: 1. No pneumothorax or acute intrathoracic abnormality. 2. No significant interval change. 3. Limited evaluation due to body habitus and motion artifact. Electronically signed by: Haily Niño M.D. 05/03/23 22:[address] 05/03/23 20:54 Exam(s): CT HEAD Without Contrast EXAM: CT Head Without Intravenous Contrast CLINICAL HISTORY: Reason for exam: fall, hit head. TECHNIQUE: Axial computed tomography images of the head/brain without intravenous contrast. CTDI is 39 mGy and DLP is 624.41 mGy-cm. Automated exposure control was utilized for the study. A dose lowering technique was utilized adhering to the principles of ALARA. Mild motion artifact. COMPARISON: Head CT 04/07/23. FINDINGS: Brain: No mass effect or acute infarct. No acute hemorrhage. Mild atrophy is stable. Ventricles: No hydrocephalus or midline shift. Bones/joints: No skull fracture. Soft tissues: No scalp hematoma. Sinuses: Mild mucosal thickening right maxillary sinus, has improved. New fluid level left maxillary sinus is nonspecific, could reflect retained secretions or outflow obstruction, cannot rule out acute sinusitis. Mastoid air cells: No mastoid effusion. IMPRESSION: 1. No skull fracture, acute bleed, or acute intracranial abnormality. 2. New, small fluid level left maxillary sinus, nonspecific, cannot rule out acute sinusitis. Electronically signed by: Haily Niño M.D. 05/03/23 22:07 PM Discharge Plan Visit Data Chief Complaint: Chest Pain Stated Complaint: CHEST PAIN ED Provider: Misael Marroquin Discharge Problem: Syncope, Leukocytosis, Supratherapeutic INR, Hypokalemia, Acute UTI, Acute head trauma, Hypomagnesemia Patient Disposition: Admitted As Inpatient Condition: Fair Forms Stand Alone Forms: [facility] Prescriptions Prescriptions: No Action promethazine 12.5 mg tablet 12.5 mg PO BID PRN (Reason: nausea and vomiting) Qty: 10 0RF tamsulosin [Flomax] 0.4 mg capsule 0.8 mg PO QAM Qty: 180 3RF polyethylene glycol 3350 [Miralax] 17 gram powder in packet 17 g PO QAM nitroglycerin [Nitrostat] 0.4 mg tablet, sublingual 0.4 mg Sublingual DIRECTED PRN (Reason: CHEST PAIN) Rx Instructions: PLACE ONE TABLET UNDER THE TONGUE EVERY 5 MINUTES FOR UP TO 3 DOSES OVER 15 MINUTES IF NEEDED FOR CHEST PAIN nystatin 100,000 unit/gram Powder 1 applic TOPICAL TID PRN (Reason: Skin Irritation) Rx Instructions: APPLY DIRECTED TO ABDOMINAL FOLDS cyclobenzaprine 10 mg Tablet 10 mg PO BID PRN (Reason: Muscle Spasm) docusate sodium 100 mg Capsule 100 mg PO BID duloxetine 60 mg capsule,delayed release(DR/EC) 60 mg PO DAILY famotidine 20 mg tablet 20 mg PO DAILY fluticasone propionate 50 mcg/actuation spray,suspension 2 spray Intranasal DAILY aspirin [Ecotrin Low Strength] 81 mg tablet,delayed release (DR/EC) 81 mg PO QAM finasteride 5 mg tablet 5 mg PO QAM metoprolol succinate 50 mg Tablet Extended Release 24 Hr 75 mg PO BID spironolactone 25 mg Tablet 25 mg PO QAM atorvastatin 80 mg tablet 80 mg PO QPM Rx Instructions: TAKE THIS MEDICATION EVERY AFTERNOON sennosides [senna] 8.6 mg Tablet 8.6 mg PO DAILY PRN (Reason: Constipation) folic acid 1 mg Tablet 1 mg PO QAM furosemide [Lasix] 40 mg tablet 40 mg PO BID albuterol sulfate 90 mcg/actuation Hfa Aerosol Inhaler 2 puff INHALATION Q4 PRN (Reason: Dyspnea) omeprazole 20 mg Capsule,Delayed Release(Dr/Ec) 20 mg PO DAILYBB gabapentin 800 mg tablet 800 mg PO TID buprenorphine HCl 8 mg tablet, sublingual 20 mg SUBLINGUAL DAILY Rx Instructions: 2 and half tab daily glipizide 10 mg tablet 10 mg PO BID urea [Ureacin-20] 20 % Cream 1 applic TOPICAL BID magnesium oxide 400 mg (241.3 mg magnesium) tablet 400 mg PO DAILY ferrous sulfate 325 mg (65 mg iron) Tablet 325 mg PO QAM Rx Instructions: Take with breakfast hydroxyzine HCl 25 mg Tablet 25 mg PO QID PRN (Reason: Anxiety) ondansetron HCl 4 mg Tablet 4 mg PO Q8H PRN (Reason: NAUSEA/VOMITING) benzonatate 100 mg Capsule 100 mg PO TID PRN (Reason: cough) Qty: 10 0RF diclofenac sodium [Voltaren Arthritis Pain] 1 % Gel 2 g EXT BID Qty: 50 0RF dextromethorphan-guaifenesin 10-100 mg/5 mL Syrup 5 ml PO Q6H PRN (Reason: cough) Qty: 500 0RF cholecalciferol (vitamin D3) 125 mcg (5,000 unit) Tablet 5,000 unit PO QAM Qty: 30 0RF Lactinex 1 million cell tablet,chewable 1 tab PO TID Qty: 30 0RF isosorbide dinitrate 30 mg tablet 30 mg PO DAILY guaifenesin [Mucinex] 600 mg Tablet Extended Release 12hr 1,200 mg PO BID lorazepam 0.5 mg tablet 0.5 mg PO Q8 PRN (Reason: Anxiety) Qty: 6 0RF nicotine [Nicoderm CQ] 21 mg/24 hr Patch 24 Hour 21 mg transdermal DAILY Qty: 28 0RF potassium chloride 20 mEq tablet extended release 40 meq PO BID insulin aspart U-100 [Novolog FlexPen U-100 Insulin] 100 unit/mL (3 mL) insulin pen 10 unit subcut TIDM Rx Instructions: take before meal insulin glargine [Lantus U-100 Insulin] 100 unit/mL solution 50 unit SC HS Breztri Aerosphere 160-9-4.8 mcg/actuation HFA aerosol inhaler 2 inh inhalation BID Qty: 10.7 0RF ipratropium-albuterol 0.5 mg-3 mg(2.5 mg base)/3 mL Solution For Nebulization 3 ml NEB QIDR PRN (Reason: shortness of breath) 30 Days Qty: 120 0RF formoterol fumarate [Perforomist] 20 mcg/2 mL Solution For Nebulization 20 mcg NEB BIDR 30 Days Qty: 60 0RF budesonide 0.5 mg/2 mL Suspension For Nebulization 0.5 mg NEB BIDR 30 Days Qty: 60 0RF warfarin 5 mg tablet 2.5 mg PO DAILY Qty: 14 0RF Referrals Referrals: Roberto Askew MD [Primary Care Provider] -
[2023-05-03 21:42] LABS: Magnesium 1.5 mg/dl (1.7-2.4)
[2023-05-03] MEDS ORDERED: MAGNESIUM SULFATE / D5W 1 GM/100 ML BAG IV STA (21:44)
[2023-05-03] MEDS ORDERED: MAGNESIUM OXIDE 400 MG TAB PO STA (21:44)
[2023-05-03] MEDS: POTASSIUM CHLORIDE / WTR 10 MEQ/100 ML PLCT IV SCH ×2 (22:08→23:37)
--- NOTE | 2023-05-03 22:08 | CT Scan Report ---
Exam(s): CT HEAD Without Contrast EXAM: CT Head Without Intravenous Contrast CLINICAL HISTORY: Reason for exam: fall, hit head. TECHNIQUE: Axial computed tomography images of the head/brain without intravenous contrast. CTDI is 39 mGy and DLP is 624.41 mGy-cm. Automated exposure control was utilized for the study. A dose lowering technique was utilized adhering to the principles of ALARA. Mild motion artifact. COMPARISON: Head CT 04/07/23. FINDINGS: Brain: No mass effect or acute infarct. No acute hemorrhage. Mild atrophy is stable. Ventricles: No hydrocephalus or midline shift. Bones/joints: No skull fracture. Soft tissues: No scalp hematoma. Sinuses: Mild mucosal thickening right maxillary sinus, has improved. New fluid level left maxillary sinus is nonspecific, could reflect retained secretions or outflow obstruction, cannot rule out acute sinusitis. Mastoid air cells: No mastoid effusion. IMPRESSION: 1. No skull fracture, acute bleed, or acute intracranial abnormality. 2. New, small fluid level left maxillary sinus, nonspecific, cannot rule out acute sinusitis. Electronically signed by: Haily Niño M.D. 05/03/23 22:07 PM
--- NOTE | 2023-05-03 22:19 | CT Scan Report ---
Exam(s): CT CHEST Without Contrast EXAM: CT Chest Without Intravenous Contrast CLINICAL HISTORY: Reason for exam: fall, left chest pain. TECHNIQUE: Axial computed tomography images of the chest without intravenous contrast. CTDI is 28.14 mGy and DLP is 979.17 mGy-cm. Automated exposure control was utilized for the study. A dose lowering technique was utilized adhering to the principles of ALARA. Moderate artifact from motion, body habitus and scan field of view. COMPARISON: CT chest 01/28/23. FINDINGS: Lungs: Basilar linear scarring, stable. Otherwise, clear. No consolidation. Pulmonary arteries: No engorgement. Aorta: No thoracic aortic aneurysm. Pleural space: No effusion. No pneumothorax. Heart: Stable, moderate cardiomegaly. No significant pericardial effusion. Bones/joints: No sternal, vertebral, scapular or acute clavicle fracture, as imaged, with motion artifact and body habitus significantly limiting evaluation. Soft tissues: Fatty liver is stable. Lymph nodes: No enlarged lymph nodes. IMPRESSION: 1. No pneumothorax or acute intrathoracic abnormality. 2. No significant interval change. 3. Limited evaluation due to body habitus and motion artifact. Electronically signed by: Haily Niño M.D. 05/03/23 22:18 PM
[2023-05-03] MEDS ORDERED: ACETAMINOPHEN 1,000 MG/100 ML VIAL IV PRN (22:39)
[2023-05-03] MEDS ORDERED: MAGNESIUM SULFATE / D5W 1 GM/100 ML BAG IV ONE (22:41)
[2023-05-03 22:46] LABS: Appearance Urine Clear (Clear); Bacteria Urine Automated Negative (Negative); Bilirubin Urine Negative (Negative); Blood Urine 3+ (Negative); Color Urine Yellow; Epithelial Cell Urine Auto 0-5 /lpf (0-5); Glucose Urine UA Negative (Negative); Ketones Urine Negative (Negative); Leukocyte Esterase Urine 2+ (Negative); Nitrite Urine Negative (Negative); Protein Urine Trace (Negative); Specific Gravity Urine 1.009 (1.000-1.030); Urobilinogen Urine Negative (Negative); WBC Urine Automated >30 /hpf (0-5); pH Urine 6.5 (4.5-7.5)
[2023-05-03 23:23] LABS: Adenovirus PCR Not Detected (NotDetected); Bordetella parapertussis PCR Not Detected (NotDetected); Bordetella pertussis PCR Not Detected (NotDetected); Chlamydia pneumoniae PCR Not Detected (NotDetected); Coronavirus 229E PCR Not Detected (NotDetected); Coronavirus CoV-2 (COVID19)PCR Not Detected (NotDetected); Coronavirus HKU1 PCR Not Detected (NotDetected); Coronavirus NL63 PCR Not Detected (NotDetected); Coronavirus OC43PCR Not Detected (NotDetected); Human Metapneumovirus PCR Not Detected (NotDetected); Influenza A PCR Not Detected (NotDetected); Influenza B PCR Not Detected (NotDetected); Mycoplasma pneumoniae PCR Not Detected (NotDetected); Parainfluenza Virus 1 PCR Not Detected (NotDetected); Parainfluenza Virus 2 PCR Not Detected (NotDetected); Parainfluenza Virus 3 PCR Not Detected (NotDetected); Parainfluenza Virus 4 PCR Not Detected (NotDetected); Respiratory Syncytial VirusPCR Not Detected (NotDetected); Rhinovirus/Enterovirus PCR Not Detected (NotDetected)
[2023-05-03 23:43] LABS: Base Excess ABG 14.8 mEq/L (-9-1.8); HCO3 ABG 39 mmol/L (19-24); PCO2 ABG 46 mmHg (35-46); PO2 ABG 47 mmHg (80-95)
[2023-05-03 23:48] LABS: Allen Test Pos (Pos)
[2023-05-03 23:50] LABS: Oxygen Saturation ABG 85.7 % (90-95)
[2023-05-03 23:56] LABS: pH ABG 7.54 (7.35-7.45)
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
[2023-05-04] MEDS ORDERED: NITROGLYCERIN SL 0.4 MG/TAB TAB SL STA (00:52)
[2023-05-04] MEDS ORDERED: SENNA 8.6 MG TAB PO PRN (01:15)
[2023-05-04] MEDS ORDERED: ALBUT/IPRATROP 3MG/0.5MG NEB 3 ML VIAL NEB PRN (01:15)
[2023-05-04] MEDS ORDERED: CARBOHYDRATES FOR HYPOGLYCEMIA PO PRN (01:15)
[2023-05-04] MEDS ORDERED: GLUCOSE 40% GEL 15 GM TUBE PO PRN (01:15)
[2023-05-04] MEDS ORDERED: PROMETHAZINE HCL 12.5 MG in SODIUM CHLORIDE 0.9% 50 ML IV PRN (01:15)
[2023-05-04] MEDS ORDERED: GLUCOSE 10 TAB/TUBE PO PRN (01:15)
[2023-05-04] MEDS ORDERED: GLUCAGON FOR INJ 1 MG VIAL SQ PRN (01:15)
[2023-05-04] MEDS ORDERED: DICLOFENAC SOD 1% GEL 100 GM TUBE EXT PRN (01:15)
[2023-05-04] MEDS ORDERED: hydrOXYzine HCl 25 MG TAB PO PRN (01:15)
[2023-05-04] MEDS ORDERED: DEXTROSE 50% 50 ML SYRINGE IV PRN (01:15)
[2023-05-04] MEDS: AZTREONAM 2,000 MG in DEXTROSE 5% 100 ML IV SCH ×3 (01:31→23:40)
[2023-05-04] MEDS ORDERED: POTASSIUM CHLORIDE CRTAB 20 MEQ TABCR PO ONE ×3 (02:00→17:19)
[2023-05-04] MEDS: METOPROLOL SUCC 25MG EXT REL TAB PO SCH ×3 (02:20→22:08)
[2023-05-04] MEDS: GABAPENTIN 800 MG TAB PO SCH ×4 (02:20→22:18)
[2023-05-04] MEDS: buprenorphine HCL 8 MG SUBL SL SCH ×3 (02:20→22:08)
[2023-05-04] MEDS: NICOTINE 21 MG/24 HR TDSY TD SCH (02:20)
[2023-05-04] MEDS: INSULIN ASPART PER UNIT CHARGE SC SCH ×5 (02:31→22:14)
[2023-05-04] MEDS: LANTUS PER UNIT CHARGE SC SCH ×3 (02:33→22:14)
[2023-05-04 04:45] LABS: Basophils # (auto) 0.04 K/uL (0-0.2); Basophils % (auto) 0.3 %; Eosinophils # (auto) 0.47 K/uL (0-0.50); Hematocrit (blood only) 36.6 % (42.0-52.0); Hemoglobin 11.7 g/dl (14.0-18.0); Immature Granulocytes # (auto) 0.11 K/uL (0.01-0.20); Immature Granulocytes % (auto) 0.7 %; Lymphocytes # (auto) 2.09 K/uL (1.2-3.4); Lymphocytes % (auto) 13.4 %; Mean Corpuscular Hemoglobin 25.4 pg (25.0-34.0); Mean Corpuscular Volume 79.4 fL (80.0-100.0); Mean Platelet Volume 9.8 fL (9.4-12.4); Monocytes % (auto) 6.4 %; Neutrophils # (auto) 11.89 K/uL (1.40-6.50); Neutrophils % (auto) 76.2 %; Platelet Count 324 K/uL (130-400); RDW Coefficient of Variation 18.6 % (11.5-14.5); RDW Standard Deviation 50.4 fL (36.4-46.3); Red Blood Count 4.61 M/uL (4.70-6.10)
[2023-05-04 04:55] LABS: BUN Creatinine Ratio 15.7 (10-20); Calcium 9.3 mg/dl (8.6-10.3); Creatinine Clr Calc Pharmacy 149.4 ml/min; Est GFR (Non-African American) 78.5 ml/min; Magnesium 1.8 mg/dl (1.7-2.4); Potassium 2.6 mmol/L (3.5-5.1)
[2023-05-04 05:01] LABS: Troponin I High Sensitivity 12.5 pg/ml (0-20)
[2023-05-04 05:02] LABS: INR 3.1 (0.9-1.1); Prothrombin Time 31.4 Seconds (9.0-12.0)
[2023-05-04] MEDS: BUDESONIDE 0.5 MG/2 ML VIAL (PULMICORT) NEB SCH ×2 (07:14→19:40)
[2023-05-04] MEDS: FORMOTEROL 20 MCG/2 ML VIAL NEB SCH ×2 (07:14→19:40)
--- NOTE | 2023-05-04 07:14 | XRay Report ---
XR chest 1V portable HISTORY: 52 years-old Male Chest pain, nonspecific COMPARISON: Chest CT of same day TECHNIQUE: AP view of the chest FINDINGS: Cardiac silhouette is enlarged. No pneumothorax, large pleural effusion or overt pulmonary edema. Mil d subsegmental bibasilar atelectasis. Chronic left clavicular fracture deformity. Degenerative change s of the shoulders and spine. IMPRESSION: Cardiomegaly with mild subsegmental bibasilar atelectasis. ACT 112: Negative or not required by law. The above report was generated using voice recognition software. It may contain grammatical, syntax o r spelling errors. Electronically signed by: Shelton Apodaca M.D. 05/04/2023 7:12 AM
[2023-05-04] MEDS: POLYETHYLENE (MIRALAX) 17 GM PACK PO SCH (08:00)
[2023-05-04] MEDS: ISOSORBIDE DINITRATE 10 MG TAB PO SCH (08:01)
[2023-05-04] MEDS: DULoxetine HCL 60 MG CAP PO SCH (08:02)
[2023-05-04] MEDS: POTASSIUM CHLORIDE CRTAB 20 MEQ TABCR PO SCH ×2 (08:02→22:08)
[2023-05-04] MEDS: TAMSULOSIN HCL 0.4 MG CAP PO SCH (08:02)
[2023-05-04] MEDS: FAMOTIDINE 20 MG TAB PO SCH (08:03)
[2023-05-04] MEDS: FOLIC ACID 1 MG TAB PO SCH (08:03)
[2023-05-04] MEDS: DOCUSATE SODIUM 100 MG CAP PO SCH ×2 (08:03→22:08)
[2023-05-04] MEDS: FINASTERIDE 5 MG TAB PO SCH (08:03)
[2023-05-04] MEDS: FERROUS SULFATE 325 MG TAB PO SCH (08:03)
[2023-05-04] MEDS: ADVANCED PROBIOTIC 1250 MG CAPSULE PO SCH ×3 (08:04→22:18)
[2023-05-04] MEDS: FLUTICASONE PROPIONATE NA SPR 16 GM BTL SCH (08:05)
[2023-05-04] MEDS: SPIRONOLACTONE 25 MG TAB PO SCH (08:07)
[2023-05-04] MEDS: PANTOprazole 40 MG TAB PO SCH (08:15)
[2023-05-04] MEDS ORDERED: buprenorphine HCL 8 MG SUBL SL SCH (09:00)
[2023-05-04] MEDS ORDERED: NON-FORMULARY MEDICATION (Budesonide-Glycopyr-Formoterol [Breztri Aerosphere] 160-9-4.8 mc INH SCH (09:00)
--- NOTE | 2023-05-04 13:42 | Communication Note ---
Date of Service: May 04, 2023 Patient is seen and examined at bedside. States having chest discomfort and also reports dysuria. Reports chronic cough unchanged. Denies any dyspnea, dizziness, nausea, vomiting, abdominal pain. Troponins negative. Saturating well on room air. On exam patient is morbidly obese, no apparent distress, normocephalic atraumatic, EOMI, decreased breath sounds, clear to auscultation, S1-S2, no murmur, abdomen soft, nontender, normal bowel sounds, alert, awake, oriented, grossly no focal deficits, chronic venous stasis changes, chronic nonpitting edema. Chart, blood work, EKG, imaging studies reviewed. Patient is admitted for management of recurrent syncope, hypokalemia, supratherapeutic INR, possible complicated UTI. Also has chronic diastolic heart failure, diabetes mellitus, COPD. Monitor for any arrhythmias, check orthostatics. Will consult cardiology as per patient's request. Started on empiric IV antibiotics with Azactam for possible UTI. Replete electrolytes as needed. Hold Coumadin given supratherapeutic INR. No bleeding issues currently. PT OT, fall precautions. Continue insulin while hospitalized for management of diabetes mellitus. Chronic hyponatremia noted. Monitor sodium levels. Continue home inhalers, nebs as needed.
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
--- NOTE | 2023-05-04 15:58 | Electrocardiogram Report ---
Test Reason : Blood Pressure : / mmHG Vent. Rate : 097 BPM Atrial Rate : 097 BPM P-R Int : 160 ms QRS Dur : 114 ms QT Int : 298 ms P-R-T Axes : 036 046 126 degrees QTc Int : 378 ms Normal sinus rhythm Incomplete right bundle branch block Marked ST abnormality, possible lateral subendocardial injury Abnormal ECG When compared with ECG of 09-APR-2023 05:23, Nonspecific T wave abnormality, worse in Inferior leads QT has shortened Confirmed by Stanton Porter ([id number]) on 05/04/2023 3:58:16 PM Referred By: REFERRED SELF Confirmed By:Stanton Porter
[2023-05-04] MEDS: buprenorphine HCL 2 MG SUBL SL SCH (16:05)
[2023-05-04 16:18] LABS: BUN Creatinine Ratio 17.4 (10-20); Calcium 9.6 mg/dl (8.6-10.3); Creatinine Clr Calc Pharmacy 187.7 ml/min; Est GFR (African American) 115.6 ml/min; Est GFR (Non-African American) 99.7 ml/min; Potassium 3.1 mmol/L (3.5-5.1)
[2023-05-04 17:39] LABS: Amphetamines+Metham, Urine Neg (Neg); Barbiturates, Urine Neg (Neg); Benzodiazepine, Urine Neg (Neg); Cocaine, Urine Neg (Neg); MDMA (Ecstacy), Urine Neg (Neg); Methadone, Urine Neg (Neg); Opiate, Urine Pos (Neg); Phencyclidine, Urine Neg (Neg)
[2023-05-04] MEDS ORDERED: PHYTONADIONE 10 MG in DEXTROSE 5% 50 ML IV ONE (19:52)
[2023-05-04] MEDS ORDERED: ACETAMINOPHEN 1,000 MG/100 ML VIAL IV STA (19:54)
--- NOTE | 2023-05-04 19:57 | Communication Note ---
Date of Service: May 04, 2023 CODE LIFT called. Patient found face down from the toilet. Patient not sure if he passed out. Denies headache or neck pain. Patient with epistaxis. AM INR 3s AP Head trauma Traumatic epistaxis Coumadin coagulopathy Syncopal episode versus accidental fall versus self-inflicted injury for secondary gain (patient with history) IV vitamin K [address] head, Facial CT, CT cervical spine Stat H&H now. Continue to hold patient's Coumadin Strongly consider discussing with patient's PCP cessation of anticoagulation on discharge due to patient's special circumstances. (Fall risk, history medical noncompliance, history recurrent syncope, history self inflicted injury for secondary gain)
[2023-05-04 20:34] LABS: Hematocrit (blood only) 39.9 % (42.0-52.0); Hemoglobin 12.7 g/dl (14.0-18.0)
[2023-05-04 20:55] LABS: INR 1.7 (0.9-1.1); Prothrombin Time 18.5 Seconds (9.0-12.0)
--- NOTE | 2023-05-04 21:45 | CT Scan Report ---
Exam(s): CT HEAD Without Contrast EXAM: CT Head Without Intravenous Contrast CLINICAL HISTORY: Reason for exam: head trauma. TECHNIQUE: Axial computed tomography images of the head/brain without intravenous contrast. CTDI is 37.87 mGy and DLP is 702.46 mGy-cm. Automated exposure control was utilized for the study. A dose lowering technique was utilized adhering to the principles of ALARA. COMPARISON: 04/07/2023 FINDINGS: Brain: Unremarkable. No hemorrhage. No significant white matter disease. No edema. Ventricles: Unremarkable. No ventriculomegaly. Bones/joints: Unremarkable. No acute fracture. Soft tissues: Unremarkable. Sinuses: Air-fluid level within the left maxillary sinus. Moderate mucosal thickening of the right maxillary sinus. Mastoid air cells: Unremarkable as visualized. No mastoid effusion. IMPRESSION: No acute findings in the head/brain. Sinus disease as described above. Electronically signed by: Zane Block M.D. 05/04/23 21:44 PM
--- NOTE | 2023-05-04 21:48 | CT Scan Report ---
Exam(s): CT FACIAL Without Contrast EXAM: CT Maxillofacial Without Intravenous Contrast CLINICAL HISTORY: Reason for exam: trauma, epistaxis. TECHNIQUE: Axial computed tomography images of the face without intravenous contrast. CTDI is 50.62 mGy and DLP is 973.5 mGy-cm. Automated exposure control was utilized for the study. A dose lowering technique was utilized adhering to the principles of ALARA. COMPARISON: No relevant prior studies available. FINDINGS: Bones/joints: No acute fracture. Soft tissues: Unremarkable. Orbits: Unremarkable. Sinuses: Air-fluid level within the left maxillary sinus. Moderate mucosal thickening of the right maxillary sinus. Partial opacification of the right ethmoid air cells and right sphenoid sinus. Mastoid air cells: Fluid within the left mastoid air cells. IMPRESSION: 1. No acute facial bone fracture. 2. Sinus disease as described above. Electronically signed by: Zane Block M.D. 05/04/23 21:47 PM
--- NOTE | 2023-05-04 21:51 | CT Scan Report ---
Exam(s): CT C SPINE EXAM: CT Cervical Spine Without Intravenous Contrast CLINICAL HISTORY: Reason for exam: fall. TECHNIQUE: Axial computed tomography images of the cervical spine without intravenous contrast. CTDI is 35.95 mGy and DLP is 652.03 mGy-cm. Automated exposure control was utilized for the study. A dose lowering technique was utilized adhering to the principles of ALARA. COMPARISON: No relevant prior studies available. FINDINGS: Vertebrae: C5-6 and C6-7 spondylosis without significant bony spinal canal stenosis at any cervical level. Study is limited by patient's body habitus. Please note the cervical spine only to the mid C7 level is included on the study. No acute fracture. Discs/spinal canal/neural foramina: See above. Soft tissues: Unremarkable. IMPRESSION: No acute findings in the cervical spine. Electronically signed by: Zane Block M.D. 05/04/23 21:50 PM
[2023-05-04] MEDS: ATORVASTATIN 40 MG TAB PO SCH (22:09)
[2023-05-05] MEDS: PANTOprazole 40 MG TAB PO SCH (05:53)
[2023-05-05 06:12] LABS: Hematocrit (blood only) 38.3 % (42.0-52.0); Mean Corpuscular Hemoglobin 25.2 pg (25.0-34.0); Mean Corpuscular Hgb Conc 31.3 g/dL (32.0-36.0); Mean Corpuscular Volume 80.5 fL (80.0-100.0); Mean Platelet Volume 9.6 fL (9.4-12.4); Platelet Count 311 K/uL (130-400); RDW Coefficient of Variation 18.4 % (11.5-14.5); RDW Standard Deviation 50.3 fL (36.4-46.3); Red Blood Count 4.76 M/uL (4.70-6.10); White Blood Count 11.17 K/ul (4.8-10.8)
[2023-05-05 06:29] LABS: BUN Creatinine Ratio 14.5 (10-20); Calcium 9.9 mg/dl (8.6-10.3); Creatinine Clr Calc Pharmacy 146.7 ml/min; Est GFR (Non-African American) 76.8 ml/min
[2023-05-05 06:37] LABS: INR 1.4 (0.9-1.1); Prothrombin Time 15.5 Seconds (9.0-12.0)
[2023-05-05] MEDS: BUDESONIDE 0.5 MG/2 ML VIAL (PULMICORT) NEB SCH ×2 (07:14→20:21)
[2023-05-05] MEDS: FORMOTEROL 20 MCG/2 ML VIAL NEB SCH ×2 (07:14→20:20)
--- NOTE | 2023-05-05 07:57 | Cardiology Progress Note ---
Date of Service May 05, 2023 Assessment & Plan Admission and Anticipated Discharge Date Admission Date: May 04, 2023 Supervising Physician Co-Signing Physician Notes Attending Staff: Pt seen and evaluated with AP Staff Concur with observations and plans 52 yo man presenting with several episodes of LOC Patient reports hx of LOC No unifying diagnosis for syncope Hx of right heart failure requiring multiple admissions for diuresis. Patient has been adherent to diuretic regimen Noted to be hypokalemic on presentation. Plans: * Aggressive KCL repletion * Once K+ is above 3.5, would start maintence diuretics * Maintenance diuretic - Torsemide 50 mg po per day * Telemetry to evaluate for sushma or tachyarrhythmias * Walking oximetry - perhaps profound ambulatory hypoxia is leading to syncope * Implantable Loop to be able to better understand rhythm during syncope- have reached out to EP * Overnight oximetry - likely needs DARIA/ Sleep Study at home * Bariatrics referral as an outpatient - explained to patient that obesity links many of his current challenges [place] Moore Subjective Events Overnight: * Reports that he had a syncopal event overnight * No sushma or tachyarrhythmias on telemetry at the time of syncope Subjective: * No complaints at present Review of Systems Review of Systems: All systems reviewed & are unremarkable except as noted in HPI & below Physical Exam Physical Exam: On exam: Morbidly obese JVP at base of neck S1S2 2/6 systolic murmur - heart sounds distant CTA B Trace LE edema No significant change overnight Results & Data Vital Signs (Past 12 Hours) Vital Signs Temp Pulse Pulse Resp BP BP Pulse Ox 05/05/23 07:30 60 05/05/23 07:16 64 15 95 05/05/23 03:00 36.5 C 62 20 134/75 95 05/04/23 22:09 83 05/04/23 22:38 80 18 122/67 91 05/04/23 22:23 82 18 122/67 90 05/04/23 22:08 81 18 148/73 H 89 L 05/04/23 21:52 78 16 148/73 H 05/04/23 20:13 36.9 C 97 H 20 105/72 92 O2 Del Method O2 Flow Rate 05/05/23 07:30 05/05/23 07:16 Nasal Cannula 3 05/05/23 03:00 Nasal Cannula 3 05/04/23 22:09 05/04/23 22:38 Room Air 05/04/23 22:23 Room Air 05/04/23 22:08 Room Air 05/04/23 21:52 Room Air 05/04/23 20:13 Room Air Laboratory Results Coagulation 05/04/23 05/05/23 Range/Units 19:55 05:52 PT 18.5 H 15.5 H (9.0-12.0) Seconds CBC 05/04/23 05/05/23 Range/Units 19:55 05:52 WBC 11.17 H (4.8-10.8) K/ul RBC 4.76 (4.70-6.10) M/uL Hgb 12.7 L 12.0 L (14.0-18.0) g/dl Hct 39.9 L 38.3 L (42.0-52.0) % Plt Count 311 (130-400) K/uL Comprehensive Metabolic Panel 05/04/23 05/05/23 Range/Units 15:38 05:52 Sodium 133 L 137 (136-145) mmol/L Potassium 3.1 L 3.0 L (3.5-5.1) mmol/L Chloride 90 L 93 L (98-107) mmol/L Carbon Dioxide 38 H 40 H (21-32) mmol/L BUN 15 16 (6-23) mg/dl Creatinine 0.86 1.10 (0.6-1.4) mg/dl Glucose 180 H 205 H (70-99(Fasting)) mg/dl Calcium 9.6 9.9 (8.6-10.3) mg/dl Intake and Output 05/04/23 05/05/23 05/05/23 22:59 06:59 14:59 Intake Total 511 / 821 310 / 821 110 / 110 Output Total 1400 / 3650 1250 / 3650 Balance -889 / -2829 -940 / -2829 110 / 110 Intake: IV 261 / 371 110 / 371 110 / 110 Acetaminophen 1,000 mg In 100 100 / 100 ml @ 400 mls/hr IV NOW STA Rx#: [id number] Aztreonam 2,000 mg In Dextrose 110 / 220 110 / 220 110 / 110 5% 100 ml @ 100 mls/hr IV Q8H [facility] Rx#:[id number] Phytonadione 10 mg In Dextrose 51 / 51 5% 50 ml @ 102 mls/hr IV ONE ONE Rx#:[id number] Oral 250 / 450 200 / 450 Output: Urine Amount (Catheter) 1400 / 3650 1250 / 3650 Lloyd/Indwelling 1400 / 3650 1250 / 3650 Other: Weight 208 kg Medications Administered Current Inpatient Medications Albuterol (Albut/Ipratrop 3mg/0.5mg Neb 3 Ml Vial) 3 ml NEB QIDR PRN; Protocol PRN Reason: shortness of breath Stop: 06/03/23 01:14 Atorvastatin Calcium (Atorvastatin 40 Mg Tab) 80 mg PO QPM EMPERATRIZ Stop: 06/03/23 20:59 Last Admin: 05/04/23 22:09 Dose: 80 mg Budesonide (Budesonide 0.5 Mg/2 Ml Vial (Pulmicort)) 0.5 mg NEB BIDR EMPERATRIZ Stop: 06/03/23 06:59 Last Admin: 05/05/23 07:14 Dose: 0.5 mg Buprenorphine HCl (Buprenorphine Hcl 8 Mg Subl) 8 mg SL BID EMPERATRIZ Stop: 06/03/23 01:59 Last Admin: 05/05/23 09:13 Dose: 8 mg Buprenorphine HCl (Buprenorphine Hcl 2 Mg Subl) 4 mg SL DAILY@1400 [facility] Stop: 06/03/23 13:59 Last Admin: 05/04/23 16:05 Dose: 4 mg Dextrose (Dextrose 50% 50 Ml Syringe) 25 - 50 ml IV UD PRN; Protocol PRN Reason: Hypoglycemia Protocol Stop: 06/03/23 01:14 Diclofenac Sodium (Diclofenac Sod 1% Gel 100 Gm Tube) 2 gm EXT QID PRN; Protocol PRN Reason: joint pain Stop: 06/03/23 01:14 Docusate Sodium (Docusate Sodium 100 Mg Cap) 100 mg PO BID EMPERATRIZ Stop: 06/03/23 08:59 Last Admin: 05/05/23 09:17 Dose: 100 mg Duloxetine HCl (Duloxetine Hcl 60 Mg Cap) 60 mg PO DAILY EMPERATRIZ Stop: 06/03/23 08:59 Last Admin: 05/05/23 09:14 Dose: 60 mg Famotidine (Famotidine 20 Mg Tab) 20 mg PO DAILY EMPERATRIZ Stop: 06/03/23 08:59 Last Admin: 05/05/23 09:15 Dose: 20 mg Ferrous Sulfate (Ferrous Sulfate 325 Mg Tab) 325 mg PO QAM EMPERATRIZ Stop: 06/03/23 08:59 Last Admin: 05/05/23 09:14 Dose: 325 mg Finasteride (Finasteride 5 Mg Tab) 5 mg PO QAM [facility] Stop: 06/03/23 08:59 Last Admin: 05/05/23 09:15 Dose: 5 mg Fluticasone Propionate (Fluticasone Propionate Na Spr 16 Gm Btl) 2 sprays NA DAILY [facility] Stop: 06/03/23 08:59 Last Admin: 05/05/23 11:03 Dose: 2 sprays Folic Acid (Folic Acid 1 Mg Tab) 1 mg PO QAM [facility] Stop: 06/03/23 08:59 Last Admin: 05/05/23 09:14 Dose: 1 mg Formoterol Fumarate (Formoterol 20 Mcg/2 Ml Vial) 20 mcg NEB BIDR [facility] Stop: 06/03/23 06:59 Last Admin: 05/05/23 07:14 Dose: 20 mcg Gabapentin (Gabapentin 800 Mg Tab) 800 mg PO TID [facility] Stop: 06/03/23 01:14 Last Admin: 05/05/23 09:16 Dose: 800 mg Glucagon (Glucagon For Inj 1 Mg Vial) 1 mg SQ UD PRN; Protocol PRN Reason: Hypoglycemia Protocol Stop: 06/03/23 01:14 Glucose (Glucose 10 Tab/Tube) 4 - 8 tab PO UD PRN; Protocol PRN Reason: Hypoglycemia Treatment Stop: 06/03/23 01:14 Glucose (Glucose 40% Gel 15 Gm Tube) 15 - 30 gm PO UD PRN; Protocol PRN Reason: Hypoglycemia Protocol Stop: 06/03/23 01:14 Hydroxyzine HCl (Hydroxyzine Hcl 25 Mg Tab) 25 mg PO QID PRN PRN Reason: Anxiety Stop: 06/03/23 01:14 Acetaminophen (Ofirmev) 1,000 mg in 100 mls @ 400 mls/hr IV Q8H PRN PRN Reason: fever/pain Stop: 05/06/23 22:38 Last Infusion: 05/04/23 03:43 Dose: Infused Aztreonam 2,000 mg/ Dextrose 110 mls @ 100 mls/hr IV Q8H EMPERATRIZ; Protocol Stop: 05/14/23 01:59 Last Infusion: 05/05/23 11:04 Dose: Infused Promethazine HCl 12.5 mg/ (Sodium Chloride) 50.5 mls @ 202 mls/hr IV Q6H PRN PRN Reason: Nausea And Vomiting Stop: 06/03/23 01:14 Insulin Aspart (Insulin Aspart Per Unit Charge) 0 units SC ACHS [facility] Stop: 06/03/23 01:14 Last Admin: 05/05/23 09:28 Dose: 6 units Insulin Glargine (Lantus Per Unit Charge) 25 units SC BID [facility] Stop: 06/03/23 01:14 Last Admin: 05/05/23 09:28 Dose: 25 units Isosorbide Dinitrate (Isosorbide Dinitrate 10 Mg Tab) 30 mg PO DAILY [facility] Stop: 06/03/23 08:59 Last Admin: 05/05/23 09:14 Dose: 30 mg Lactobacillus Acidophilus (Advanced Probiotic 1250 Mg Capsule) 2 cap PO TID [facility] Stop: 06/03/23 08:59 Last Admin: 05/05/23 09:14 Dose: 2 cap Lorazepam (Lorazepam 0.5 Mg Tab) 0.5 mg PO Q8H PRN PRN Reason: Anxiety Stop: 06/03/23 01:14 Last Admin: 05/05/23 09:18 Dose: 0.5 mg Metoprolol Succinate (Metoprolol Succ 25mg Ext Rel Tab) 75 mg PO BID [facility] Stop: 06/03/23 01:14 Last Admin: 05/05/23 11:04 Dose: Not Given Miscellaneous (Remove Nicoderm Patch) 1 each N/A DAILY@0859 [facility] Stop: 06/04/23 08:58 Last Admin: 05/05/23 09:13 Dose: 1 each Miscellaneous (Carbohydrates For Hypoglycemia ) 15 - 30 gm PO UD PRN PRN Reason: Hypoglycemia Protocol Stop: 06/03/23 01:14 Nicotine (Nicotine 21 Mg/24 Hr Tdsy) 21 mg TD QAM [facility] Stop: 06/03/23 00:54 Last Admin: 05/04/23 02:20 Dose: 21 mg Pantoprazole Sodium (Pantoprazole 40 Mg Tab) 40 mg PO DAILYBB [facility] Stop: 06/03/23 06:29 Last Admin: 05/05/23 05:53 Dose: 40 mg Polyethylene Glycol (Polyethylene (Miralax) 17 Gm Pack) 17 gm PO QAM [facility] Stop: 06/03/23 08:59 Last Admin: 05/05/23 09:15 Dose: 17 gm Potassium Chloride (Potassium Chloride Crtab 20 Meq Tabcr) 20 meq PO BID [facility] Stop: 06/03/23 08:59 Last Admin: 05/05/23 09:16 Dose: 20 meq Sennosides (Senna 8.6 Mg Tab) 8.6 mg PO DAILY PRN PRN Reason: Constipation Stop: 06/03/23 01:14 Spironolactone (Spironolactone 25 Mg Tab) [facility] [place] Stop: 06/03/23 08:59 Last Admin: 05/05/23 09:14 Dose: 25 mg Tamsulosin HCl (Tamsulosin Hcl 0.4 Mg Cap) 0.8 mg [facility] [place] Stop: 06/03/23 08:59 Last Admin: 05/05/23 09:13 Dose: 0.8 mg
[2023-05-05] MEDS: buprenorphine HCL 8 MG SUBL SL SCH ×2 (09:13→21:12)
[2023-05-05] MEDS: TAMSULOSIN HCL 0.4 MG CAP PO SCH (09:13)
[2023-05-05] MEDS: AZTREONAM 2,000 MG in DEXTROSE 5% 100 ML IV SCH ×3 (09:13→23:20)
[2023-05-05] MEDS: SPIRONOLACTONE 25 MG TAB PO SCH (09:14)
[2023-05-05] MEDS: ISOSORBIDE DINITRATE 10 MG TAB PO SCH (09:14)
[2023-05-05] MEDS: DULoxetine HCL 60 MG CAP PO SCH (09:14)
[2023-05-05] MEDS: ADVANCED PROBIOTIC 1250 MG CAPSULE PO SCH ×3 (09:14→21:01)
[2023-05-05] MEDS: FERROUS SULFATE 325 MG TAB PO SCH (09:14)
[2023-05-05] MEDS: FOLIC ACID 1 MG TAB PO SCH (09:14)
[2023-05-05] MEDS: FAMOTIDINE 20 MG TAB PO SCH (09:15)
[2023-05-05] MEDS: FINASTERIDE 5 MG TAB PO SCH (09:15)
[2023-05-05] MEDS: POLYETHYLENE (MIRALAX) 17 GM PACK PO SCH (09:15)
[2023-05-05] MEDS: POTASSIUM CHLORIDE CRTAB 20 MEQ TABCR PO SCH ×2 (09:16→21:02)
[2023-05-05] MEDS: GABAPENTIN 800 MG TAB PO SCH ×3 (09:16→21:01)
[2023-05-05] MEDS: DOCUSATE SODIUM 100 MG CAP PO SCH ×2 (09:17→21:38)
[2023-05-05] MEDS: LORazepam 0.5 MG TAB PO PRN (09:18)
[2023-05-05] MEDS: LANTUS PER UNIT CHARGE SC SCH ×2 (09:28→21:02)
[2023-05-05] MEDS: INSULIN ASPART PER UNIT CHARGE SC SCH ×4 (09:28→21:03)
[2023-05-05] MEDS: FLUTICASONE PROPIONATE NA SPR 16 GM BTL SCH (11:03)
[2023-05-05] MEDS: METOPROLOL SUCC 25MG EXT REL TAB PO SCH ×2 (11:04→20:59)
[2023-05-05] MEDS ORDERED: ACETAMINOPHEN 1,000 MG/100 ML VIAL IV STA ×2 (12:22→21:46)
[2023-05-05] MEDS: NICOTINE 21 MG/24 HR TDSY TD SCH (12:25)
--- NOTE | 2023-05-05 15:07 | Hospitalist Progress Note ---
Date of Service May 05, 2023 Assessment & Plan (1) Hypokalemia: Plan: Patient is a 52-year-old male with past medical history of chronic diastolic heart failure (EF 55 to 60%, TTE 2022), history CAD/STEMI as per records, history subdural hematoma/subarachnoid hemorrhage as per records (no operative intervention), hypertension, hyperlipidemia, COPD, recurrent PE on Coumadin, DM 2 insulin requiring, recurrent UTIs secondary to BPH/chronic urinary retention indwelling Lloyd catheter, chronic anemia (baseline hemoglobin 11-13), chronic pain on buprenorphine, presented to the ED with multiple falls Multiple falls Morbid obesity Ambulatory dysfunction Supratherapeutic INR Reported history of multiple falls recently. Also reported to have a fall on 05/04; reports "passing out for 1 or 2 seconds" during a bowel movement Telemetry does not show any arrhythmia. CT head personally reviewed; no acute abnormality Face CT, cervical spine CT reviewed; no acute finding. Cardiology on board; recommend aggressive KCl repletion, maintenance diuretic of torsemide 50 mg once a day, walking oximetry, implantable loop recorder, overnight oximetry and bariatric referral Currently holding off on warfarin. Started on Lovenox for DVT prophylaxis. Hypokalemia Started on kcal 40mg BID also on spironolactone Chronic diastolic CHF Compensated. Plan to start on torsemide 20 mg once a day after repletion of potassium COPD No wheeze on examination. Continue inhalers. Urinary tract infection. Urine culture growing 50 K gram-negative bacilli. Likely colonization We will discontinue antibiotics DM II HbA1C: 7.8 Continue insulin while hospitalized Monitor blood glucose levels Glycemic pharmacy consulted H/O PE Coumadin on hold On Lovenox Chronic opioid use Chronic pain Anxiety Continue home medications. Hypertension Continue metoprolol Full code Lovenox for DVT prophylaxis DispositionHome after resolution of medical issues. Time spent evaluating patient, direct bedside care, chart review, placing orders, interpretation of diagnostic studies, discussion with consultants, patient, and family members, as well as other required patient management activities is 60 minutes Please note the above document was generated using voice recognition software. It may contain grammatical, syntax or spelling errors. Any formal questions or concerns about the content, text or information contained within the body of this dictation should be directly addressed to the provider for clarification Admission and Anticipated Discharge Date Admission Date: May 04, 2023 Subjective Patient seen and examined at bedside. He is sitting up on the bed comfortably; not in any distress. Reports "passing out for 1 or 2 seconds" while having a bowel movement yesterday. CT head, face CT and cervical spine all negative Review of Systems Review of Systems: All systems reviewed & are unremarkable except as noted in Subjective Physical Exam Physical Exam: GENERAL: Awake, comfortable, morbidly obese. SKIN: Pallor, warm NECK : Supple, short neck, no tenderness CHEST : Bilateral clear breath sound. No wheeze/crackles. HEART : RRR, no obvious murmurs ABDOMEN: distention, no tenderness EXTREMITIES : Bilateral LE swelling, no LE tenderness, no conspicuous deformities noted NEUROLOGIC : Coherent, no facial asymmetry, gait and stance not assessed Results & Data Results & Data Vital Signs (Past 12 Hours) Vital Signs Temp Pulse Pulse Pulse Resp BP BP 05/05/23 12:40 36.5 C 73 18 103/69 05/05/23 08:00 05/05/23 08:00 36.4 C L 65 16 112/70 05/05/23 07:30 60 05/05/23 07:16 64 15 05/05/23 03:00 36.5 C 62 20 134/75 Pulse Ox O2 Del Method O2 Flow Rate 05/05/23 12:40 92 Room Air 05/05/23 08:00 Room Air 05/05/23 08:00 90 Room Air 05/05/23 07:30 05/05/23 07:16 95 Nasal Cannula 3 05/05/23 03:00 95 Nasal Cannula 3 Laboratory Results Laboratory Results WBC 11.17 K/ul (4.8-10.8) H 05/05/23 05:52 RBC 4.76 M/uL (4.70-6.10) 05/05/23 05:52 Hgb 12.0 g/dl (14.0-18.0) L 05/05/23 05:52 Hct 38.3 % (42.0-52.0) L 05/05/23 05:52 MCV 80.5 fL (80.0-100.0) 05/05/23 05:52 MCH 25.2 pg (25.0-34.0) 05/05/23 05:52 MCHC 31.3 g/dL (32.0-36.0) L 05/05/23 05:52 RDW Std Deviation 50.3 fL (36.4-46.3) H 05/05/23 05:52 RDW Coeff of Megan 18.4 % (11.5-14.5) H 05/05/23 05:52 Plt Count 311 K/uL (130-400) 05/05/23 05:52 MPV 9.6 fL (9.4-12.4) 05/05/23 05:52 Immature Gran % (Auto) 0.7 % 05/04/23 04:20 Neut % (Auto) 76.2 % 05/04/23 04:20 Lymph % (Auto) 13.4 % 05/04/23 04:20 [place] % (Auto) 6.4 % 05/04/23 04:20 Eos % (Auto) 3.0 % 05/04/23 04:20 Baso % (Auto) 0.3 % 05/04/23 04:20 Neut # (Auto) 11.89 K/uL (1.40-6.50) H 05/04/23 04:20 Lymph # (Auto) 2.09 K/uL (1.2-3.4) 05/04/23 04:20 [place] # (Auto) 1.00 K/uL (0.11-0.59) H 05/04/23 04:20 Eos # (Auto) 0.47 K/uL (0-0.50) 05/04/23 04:20 Baso # (Auto) 0.04 K/uL (0-0.2) 05/04/23 04:20 Immature Gran # (Auto) 0.11 K/uL (0.01-0.20) 05/04/23 04:20 PT 15.5 Seconds (9.0-12.0) H 05/05/23 05:52 INR 1.4 (0.9-1.1) H 05/05/23 05:52 APTT 101.3 Seconds (21.0-31.0) H* 05/03/23 19:00 PTT Ratio 3.6 05/03/23 19:00 ABG pH 7.54 (7.35-7.45) H* 05/03/23 23:19 ABG pCO2 46 mmHg (35-46) 05/03/23 23:19 ABG pO2 47 mmHg (80-95) L 05/03/23 23:19 ABG HCO3 39 mmol/L (19-24) H 05/03/23 23:19 ABG O2 Saturation 85.7 % (90-95) L 05/03/23 23:19 ABG Base Excess 14.8 mEq/L (-9-1.8) H 05/03/23 23:19 Mariano Test Pos (Pos) 05/03/23 23:19 Oxygen Given 2.5 05/03/23 23:19 Sodium 137 mmol/L (136-145) 05/05/23 05:52 Potassium 3.0 mmol/L (3.5-5.1) L 05/05/23 05:52 Chloride 93 mmol/L (98-107) L 05/05/23 05:52 Carbon Dioxide 40 mmol/L (21-32) H 05/05/23 05:52 Anion Gap 4 (3-11) 05/05/23 05:52 BUN 16 mg/dl (6-23) 05/05/23 05:52 Creatinine 1.10 mg/dl (0.6-1.4) 05/05/23 05:52 Est Cr Clr Drug Dosing 146.7 ml/min 05/05/23 05:52 Est GFR ( Amer) 89.0 ml/min 05/05/23 05:52 Est GFR (Non-Af Amer) 76.8 ml/min 05/05/23 05:52 BUN/Creatinine Ratio 14.5 (10-20) 05/05/23 05:52 Glucose 205 mg/dl (70-99(Fasting)) H 05/05/23 05:52 POC Glucose 271 mg/dl (70-99) H 05/05/23 12:37 Lactate 1.7 mmol/L (0.4-2.0) 05/03/23 21:47 Calcium 9.9 mg/dl (8.6-10.3) 05/05/23 05:52 Magnesium 2.0 mg/dl (1.7-2.4) 05/05/23 05:52 Total Bilirubin 0.7 mg/dl (0.2-1.0) 05/03/23 19:00 AST 16 U/L (13-39) 05/03/23 19:52 ALT 13 U/L (7-52) 05/03/23 19:00 Alkaline Phosphatase 104 U/L (34-104) 05/03/23 19:00 Troponin I High Sens 12.5 pg/ml (0-20) 05/04/23 04:20 B-Natriuretic Peptide 49 pg/ml (0-100) 05/03/23 21:47 Total Protein 7.0 gm/dl (6.0-8.3) 05/03/23 19:00 Albumin 3.4 gm/dl (3.4-5.0) 05/03/23 19:00 Globulin 3.6 gm/dl (2.5-4.0) 05/03/23 19:00 Albumin/Globulin Ratio 0.9 (0.9-2) 05/03/23 19:00 Procalcitonin 0.20 ng/ml (0-0.5) 05/03/23 21:49 Urine Color Yellow 05/03/23 Unknown Urine Appearance Clear (Clear) 05/03/23 Unknown Urine pH 6.5 (4.5-7.5) 05/03/23 Unknown Ur Specific [place] 1.009 (1.000-1.030) 05/03/23 Unknown Urine Protein Trace (Negative) H 05/03/23 Unknown Urine Glucose (UA) Negative (Negative) 05/03/23 Unknown Urine Ketones Negative (Negative) 05/03/23 Unknown Urine Blood 3+ (Negative) H 05/03/23 Unknown Urine Nitrite Negative (Negative) 05/03/23 Unknown Urine Bilirubin Negative (Negative) 05/03/23 Unknown Urine Urobilinogen Negative (Negative) 05/03/23 Unknown Ur Leukocyte Esterase 2+ (Negative) H 05/03/23 Unknown Urine WBC (Auto) >30 /hpf (0-5) H 05/03/23 Unknown Urine RBC (Auto) 10-30 /hpf (0-4) H 05/03/23 Unknown U Hyaline Cast (Auto) 1-5 /lpf (0-5) 05/03/23 Unknown U Epithel Cells (Auto) 0-5 /lpf (0-5) 05/03/23 Unknown Urine Bacteria (Auto) Negative (Negative) 05/03/23 Unknown Urine Opiates Screen Pos (Neg) H 05/04/23 16:59 Ur Methadone, Qual Neg (Neg) 05/04/23 16:59 Urine Barbiturates Neg (Neg) 05/04/23 16:59 Ur Phencyclidine (PCP) Neg (Neg) 05/04/23 16:59 U Amphetamin/Meth Scrn Neg (Neg) 05/04/23 16:59 MDMA (Ecstasy) Screen Neg (Neg) 05/04/23 16:59 U Benzodiazepines Scrn Neg (Neg) 05/04/23 16:59 Ur Cocaine Metabolite Neg (Neg) 05/04/23 16:59 U Marijuana (THC) Screen Neg (Neg) 05/04/23 16:59 Adenovirus (PCR) Not Detected (NotDetected) 05/03/23 Unknown B. pertussis DNA (PCR) Not Detected (NotDetected) 05/03/23 Unknown B.parapertussis DNA PCR Not Detected (NotDetected) 05/03/23 Unknown C. pneumoniae DNA (PCR) Not Detected (NotDetected) 05/03/23 Unknown Coronavirus OC43 (PCR) Not Detected (NotDetected) 05/03/23 Unknown Coronavirus HKU1 (PCR) Not Detected (NotDetected) 05/03/23 Unknown Coronavirus 229E (PCR) Not Detected (NotDetected) 05/03/23 Unknown SARS-CoV-2 (PCR) Not Detected (NotDetected) 05/03/23 Unknown Coronavirus NL63 (PCR) Not Detected (NotDetected) 05/03/23 Unknown Human Metapneumovir PCR Not Detected (NotDetected) 05/03/23 Unknown Influenza Type A (PCR) Not Detected (NotDetected) 05/03/23 Unknown Influenza Type B (PCR) Not Detected (NotDetected) 05/03/23 Unknown M. pneumoniae (PCR) Not Detected (NotDetected) 05/03/23 Unknown Parainfluenza 1 (PCR) Not Detected (NotDetected) 05/03/23 Unknown Parainfluenza 2 (PCR) Not Detected (NotDetected) 05/03/23 Unknown Parainfluenza 3 (PCR) Not Detected (NotDetected) 05/03/23 Unknown Parainfluenza 4 (PCR) Not Detected (NotDetected) 05/03/23 Unknown RSV (PCR) Not Detected (NotDetected) 05/03/23 Unknown Entero/Rhino (PCR) Not Detected (NotDetected) 05/03/23 Unknown Blood Type O Positive 05/04/23 04:20 Antibody Screen NEGATIVE 05/04/23 04:20 Impressions Chest X-Ray 05/03/23 18:42 XR chest 1V portable HISTORY: 52 years-old Male Chest pain, nonspecific COMPARISON: Chest CT of same day TECHNIQUE: AP view of the chest FINDINGS: Cardiac silhouette is enlarged. No pneumothorax, large pleural effusion or overt pulmonary edema. Mild subsegmental bibasilar atelectasis. Chronic left clavicular fracture deformity. Degenerative changes of the shoulders and spine. IMPRESSION: Cardiomegaly with mild subsegmental bibasilar atelectasis. ACT 112: Negative or not required by law. The above report was generated using voice recognition software. It may contain grammatical, syntax or spelling errors. Electronically signed by: Shelton Apodaca M.D. 05/04/2023 7:[address] 05/03/23 20:54 Exam(s): CT CHEST Without Contrast EXAM: CT Chest Without Intravenous Contrast CLINICAL HISTORY: Reason for exam: fall, left chest pain. TECHNIQUE: Axial computed tomography images of the chest without intravenous contrast. CTDI is 28.14 mGy and DLP is 979.17 mGy-cm. Automated exposure control was utilized for the study. A dose lowering technique was utilized adhering to the principles of ALARA. Moderate artifact from motion, body habitus and scan field of view. COMPARISON: CT chest 01/28/23. FINDINGS: Lungs: Basilar linear scarring, stable. Otherwise, clear. No consolidation. Pulmonary arteries: No engorgement. Aorta: No thoracic aortic aneurysm. Pleural space: No effusion. No pneumothorax. Heart: Stable, moderate cardiomegaly. No significant pericardial effusion. Bones/joints: No sternal, vertebral, scapular or acute clavicle fracture, as imaged, with motion artifact and body habitus significantly limiting evaluation. Soft tissues: Fatty liver is stable. Lymph nodes: No enlarged lymph nodes. IMPRESSION: 1. No pneumothorax or acute intrathoracic abnormality. 2. No significant interval change. 3. Limited evaluation due to body habitus and motion artifact. Electronically signed by: Haily Niño M.D. 05/03/23 22:[address] 05/04/23 19:49 Exam(s): CT C SPINE EXAM: CT Cervical Spine Without Intravenous Contrast CLINICAL HISTORY: Reason for exam: fall. TECHNIQUE: Axial computed tomography images of the cervical spine without intravenous contrast. CTDI is 35.95 mGy and DLP is 652.03 mGy-cm. Automated exposure control was utilized for the study. A dose lowering technique was utilized adhering to the principles of ALARA. COMPARISON: No relevant prior studies available. FINDINGS: Vertebrae: C5-6 and C6-7 spondylosis without significant bony spinal canal stenosis at any cervical level. Study is limited by patient's body habitus. Please note the cervical spine only to the mid C7 level is included on the study. No acute fracture. Discs/spinal canal/neural foramina: See above. Soft tissues: Unremarkable. IMPRESSION: No acute findings in the cervical spine. Electronically signed by: Zane Block M.D. 05/04/23 21:[address] 05/04/23 19:49 Exam(s): CT FACIAL Without Contrast EXAM: CT Maxillofacial Without Intravenous Contrast CLINICAL HISTORY: Reason for exam: trauma, epistaxis. TECHNIQUE: Axial computed tomography images of the face without intravenous contrast. CTDI is 50.62 mGy and DLP is 973.5 mGy-cm. Automated exposure control was utilized for the study. A dose lowering technique was utilized adhering to the principles of ALARA. COMPARISON: No relevant prior studies available. FINDINGS: Bones/joints: No acute fracture. Soft tissues: Unremarkable. Orbits: Unremarkable. Sinuses: Air-fluid level within the left maxillary sinus. Moderate mucosal thickening of the right maxillary sinus. Partial opacification of the right ethmoid air cells and right sphenoid sinus. Mastoid air cells: Fluid within the left mastoid air cells. IMPRESSION: 1. No acute facial bone fracture. 2. Sinus disease as described above. Electronically signed by: Zane Block M.D. 05/04/23 21:[address] 05/04/23 19:49 Exam(s): CT HEAD Without Contrast EXAM: CT Head Without Intravenous Contrast CLINICAL HISTORY: Reason for exam: head trauma. TECHNIQUE: Axial computed tomography images of the head/brain without intravenous contrast. CTDI is 37.87 mGy and DLP is 702.46 mGy-cm. Automated exposure control was utilized for the study. A dose lowering technique was utilized adhering to the principles of ALARA. COMPARISON: 04/07/2023 FINDINGS: Brain: Unremarkable. No hemorrhage. No significant white matter disease. No edema. Ventricles: Unremarkable. No ventriculomegaly. Bones/joints: Unremarkable. No acute fracture. Soft tissues: Unremarkable. Sinuses: Air-fluid level within the left maxillary sinus. Moderate mucosal thickening of the right maxillary sinus. Mastoid air cells: Unremarkable as visualized. No mastoid effusion. IMPRESSION: No acute findings in the head/brain. Sinus disease as described above. Electronically signed by: Zane Block M.D. 05/04/23 21:44 PM
[2023-05-05] MEDS: buprenorphine HCL 2 MG SUBL SL SCH (15:11)
--- NOTE | 2023-05-05 15:33 | Electrocardiogram Report ---
Test Reason : Blood Pressure : / mmHG Vent. Rate : 075 BPM Atrial Rate : 075 BPM P-R Int : 164 ms QRS Dur : 102 ms QT Int : 394 ms P-R-T Axes : 061 033 070 degrees QTc Int : 439 ms Poor data quality, interpretation may be adversely affected Normal sinus rhythm Nonspecific ST and T wave abnormality Abnormal ECG When compared with ECG of 03-MAY-2023 18:36, Nonspecific T wave abnormality no longer evident in Inferior leads QT has lengthened Confirmed by Stanton Porter ([id number]) on 05/05/2023 3:33:00 PM Referred By: REFERRED SELF Confirmed By:Stanton Porter
[2023-05-05] MEDS ORDERED: WARFARIN SOD 2.5 MG TAB PO SCH (16:00)
[2023-05-05 16:17] LABS: BUN Creatinine Ratio 13.6 (10-20); Calcium 9.7 mg/dl (8.6-10.3); Creatinine Clr Calc Pharmacy 144.2 ml/min; Est GFR (Non-African American) 76.8 ml/min; Magnesium 1.9 mg/dl (1.7-2.4); Potassium 3.4 mmol/L (3.5-5.1)
[2023-05-05] MEDS: ENOXAPARIN INJ 40 MG/0.4 ML SYR SQ SCH ×2 (16:25→23:20)
[2023-05-05] MEDS: ATORVASTATIN 40 MG TAB PO SCH (20:59)
[2023-05-06] MEDS: PANTOprazole 40 MG TAB PO SCH (06:07)
[2023-05-06] MEDS: FORMOTEROL 20 MCG/2 ML VIAL NEB SCH ×2 (07:22→19:41)
[2023-05-06] MEDS: BUDESONIDE 0.5 MG/2 ML VIAL (PULMICORT) NEB SCH ×2 (07:22→19:42)
--- NOTE | 2023-05-06 08:20 | Cardiology Progress Note ---
Date of Service May 06, 2023 Assessment & Plan (1) Syncope: (2) Hypokalemia: (3) Supratherapeutic INR: (4) Acute UTI: (5) Leukocytosis: (6) (HFpEF) heart failure with preserved ejection fraction: Plan See attending pediatric physician assistant's documentation for further recommendations and plan of care. Admission and Anticipated Discharge Date Admission Date: May 04, 2023 Supervising Physician Co-Signing Physician Notes Attending Staff: Pt seen and evaluated with AP Staff Concur with observations and plans 52 yo man presenting with several episodes of LOC Patient reports hx of LOC No unifying diagnosis for syncope Hx of right heart failure requiring multiple admissions for diuresis. Patient has been adherent to diuretic regimen Noted to be hypokalemic on presentation. Plans: * Aggressive KCL repletion * Increase KCL from 40 meq po BID to 40 meq po TID * Goal K+ is 4.5-5 * Once K+ is above 3.5, would start maintenance diuretics * Maintenance diuretic - Torsemide 50 mg po per day * Telemetry to evaluate for sushma or tachyarrhythmias * Implantable Loop to be able to better understand rhythm during syncope- EP evaluating * Walking oximetry - perhaps profound ambulatory hypoxia is leading to syncope * Overnight oximetry - no desaturations on 4 Liters * Outpt sleep study may prove helpful * Potential outpt Cardiac MRI * Bariatrics referral as an outpatient - explained to patient that obesity links many of his current challenges [place] Moore Subjective Events overnight: * No telemetry events Subjective * No complaints Review of Systems Review of Systems: All systems reviewed & are unremarkable except as noted in HPI & below Physical Exam Physical Exam: On exam: Morbidly obese JVP at base of neck S1S2 2/6 systolic murmur - heart sounds distant CTA B Trace LE edema No significant change overnight Results & Data Vital Signs (Past 12 Hours) Vital Signs Temp Pulse Pulse Pulse Resp BP Pulse Ox 05/06/23 07:59 36.4 C L 66 20 129/74 99 05/06/23 07:31 63 05/06/23 07:22 80 18 99 05/06/23 04:00 36.5 C 67 20 133/75 97 05/05/23 21:59 65 05/06/23 03:08 63 05/05/23 22:00 36.5 C 68 20 132/74 97 08/16/23 22:44 67 05/05/23 20:27 70 18 95 Pulse Ox O2 Del Method O2 Del Method O2 Flow Rate O2 Flow Rate 05/06/23 07:59 Nasal Cannula 3 05/06/23 07:31 05/06/23 07:22 Nasal Cannula 4 05/06/23 04:00 Nasal Cannula 4 05/05/23 21:59 05/06/23 03:08 96 Nasal Cannula 4 05/05/23 22:00 Nasal Cannula 05/05/23 22:44 96 Nasal Cannula 4 05/05/23 20:27 Nasal Cannula 2 Laboratory Results Coagulation 05/06/23 Range/Units 08:05 PT 12.3 H (9.0-12.0) Seconds CBC 05/06/23 Range/Units 08:05 WBC 8.79 (4.8-10.8) K/ul RBC 4.83 (4.70-6.10) M/uL Hgb 12.2 L (14.0-18.0) g/dl Hct 39.5 L (42.0-52.0) % Plt Count 324 (130-400) K/uL Neut # (Auto) 5.15 (1.40-6.50) K/uL Lymph # (Auto) 2.41 (1.2-3.4) K/uL [place] # (Auto) 0.55 (0.11-0.59) K/uL Eos # (Auto) 0.57 H (0-0.50) K/uL Baso # (Auto) 0.05 (0-0.2) K/uL Comprehensive Metabolic Panel 05/05/23 05/06/23 Range/Units 15:41 08:05 Sodium 135 L 138 (136-145) mmol/L Potassium 3.4 L 3.3 L (3.5-5.1) mmol/L Chloride 91 L 94 L (98-107) mmol/L Carbon Dioxide 40 H 43 H* (21-32) mmol/L BUN 15 14 (6-23) mg/dl Creatinine 1.10 0.82 (0.6-1.4) mg/dl Glucose 250 H 208 H (70-99(Fasting)) mg/dl Calcium 9.7 9.9 (8.6-10.3) mg/dl Intake and Output 05/05/23 05/06/23 05/06/23 22:59 06:59 14:59 Intake Total 560 / 1340 210 / 1340 110 / 110 Output Total 800 / 2200 450 / 2200 Balance -240 / -860 -240 / -860 110 / 110 Intake: IV 210 / 530 110 / 530 110 / 110 Acetaminophen 1,000 mg In 100 100 / 100 ml @ 400 mls/hr IV NOW [facility] Rx#: [id number] Aztreonam 2,000 mg In Dextrose 110 / 330 110 / 330 110 / 110 5% 100 ml @ 100 mls/hr IV Q8H [facility] Rx#:[id number] Oral 350 / 810 100 / 810 Output: Urine Amount (Catheter) 800 / 1250 450 / 1250 Lloyd/Indwelling 800 / 1250 450 / 1250 Other: Weight 210.2 kg Medications Administered Current Inpatient Medications Albuterol (Albut/Ipratrop 3mg/0.5mg Neb 3 Ml Vial) 3 ml NEB QIDR PRN; Protocol PRN Reason: shortness of breath Stop: 06/03/23 01:14 Atorvastatin Calcium (Atorvastatin 40 Mg Tab) 80 mg PO QPM [facility] Stop: 06/03/23 20:59 Last Admin: 05/05/23 20:59 Dose: 80 mg Budesonide (Budesonide 0.5 Mg/2 Ml Vial (Pulmicort)) 0.5 mg NEB BIDR [facility] Stop: 06/03/23 06:59 Last Admin: 05/06/23 07:22 Dose: 0.5 mg Buprenorphine HCl (Buprenorphine Hcl 8 Mg Subl) 8 mg SL BID [facility] Stop: 06/03/23 01:59 Last Admin: 05/05/23 21:12 Dose: 8 mg Buprenorphine HCl (Buprenorphine Hcl 2 Mg Subl) 4 mg SL DAILY@1400 [facility] Stop: 06/03/23 13:59 Last Admin: 05/05/23 15:11 Dose: 4 mg Dextrose (Dextrose 50% 50 Ml Syringe) 25 - 50 ml IV UD PRN; Protocol PRN Reason: Hypoglycemia Protocol Stop: 06/03/23 01:14 Diclofenac Sodium (Diclofenac Sod 1% Gel 100 Gm Tube) 2 gm EXT QID PRN; Protocol PRN Reason: joint pain Stop: 06/03/23 01:14 Docusate Sodium (Docusate Sodium 100 Mg Cap) 100 mg PO BID [facility] Stop: 06/03/23 08:59 Last Admin: 05/05/23 21:38 Dose: Not Given Duloxetine HCl (Duloxetine Hcl 60 Mg Cap) 60 mg PO DAILY [facility] Stop: 06/03/23 08:59 Last Admin: 05/05/23 09:14 Dose: 60 mg Enoxaparin Sodium (Enoxaparin Inj 40 Mg/0.4 Ml Syr) 40 mg SQ Q12 [facility] Stop: 06/04/23 15:14 Last Admin: 05/05/23 23:20 Dose: 40 mg Famotidine (Famotidine 20 Mg Tab) 20 mg PO DAILY [facility] Stop: 06/03/23 08:59 Last Admin: 05/05/23 09:15 Dose: 20 mg Ferrous Sulfate (Ferrous Sulfate 325 Mg Tab) 325 mg PO QAM [facility] Stop: 06/03/23 08:59 Last Admin: 05/05/23 09:14 Dose: 325 mg Finasteride (Finasteride 5 Mg Tab) 5 mg PO QAM [facility] Stop: 06/03/23 08:59 Last Admin: 05/05/23 09:15 Dose: 5 mg Fluticasone Propionate (Fluticasone Propionate Na Spr 16 Gm Btl) 2 sprays NA DAILY [facility] Stop: 06/03/23 08:59 Last Admin: 05/05/23 11:03 Dose: 2 sprays Folic Acid (Folic Acid 1 Mg Tab) 1 mg PO QAM [facility] Stop: 06/03/23 08:59 Last Admin: 05/05/23 09:14 Dose: 1 mg Formoterol Fumarate (Formoterol 20 Mcg/2 Ml Vial) 20 mcg NEB BIDR [facility] Stop: 06/03/23 06:59 Last Admin: 05/06/23 07:22 Dose: 20 mcg Gabapentin (Gabapentin 800 Mg Tab) 800 mg PO TID [facility] Stop: 06/03/23 01:14 Last Admin: 05/05/23 21:01 Dose: 800 mg Glucagon (Glucagon For Inj 1 Mg Vial) 1 mg SQ UD PRN; Protocol PRN Reason: Hypoglycemia Protocol Stop: 06/03/23 01:14 Glucose (Glucose 10 Tab/Tube) 4 - 8 tab PO UD PRN; Protocol PRN Reason: Hypoglycemia Treatment Stop: 06/03/23 01:14 Glucose (Glucose 40% Gel 15 Gm Tube) 15 - 30 gm PO UD PRN; Protocol PRN Reason: Hypoglycemia Protocol Stop: 06/03/23 01:14 Hydroxyzine HCl (Hydroxyzine Hcl 25 Mg Tab) 25 mg PO QID PRN PRN Reason: Anxiety Stop: 06/03/23 01:14 Aztreonam 2,000 mg/ Dextrose 110 mls @ 100 mls/hr IV Q8H [facility]; Protocol Stop: 05/14/23 01:59 Last Infusion: 05/06/23 01:08 Dose: Infused Promethazine HCl 12.5 mg/ (Sodium Chloride) 50.5 mls @ 202 mls/hr IV Q6H PRN PRN Reason: Nausea And Vomiting Stop: 06/03/23 01:14 Insulin Aspart (Insulin Aspart Per Unit Charge) 0 units SC ACHS [facility] Stop: 06/03/23 01:14 Last Admin: 05/05/23 21:03 Dose: 3 units Insulin Glargine (Lantus Per Unit Charge) 25 units SC BID [facility] Stop: 06/03/23 01:14 Last Admin: 05/05/23 21:02 Dose: 25 units Isosorbide Dinitrate (Isosorbide Dinitrate 10 Mg Tab) 30 mg PO DAILY [facility] Stop: 06/03/23 08:59 Last Admin: 05/05/23 09:14 Dose: 30 mg Lactobacillus Acidophilus (Advanced Probiotic 1250 Mg Capsule) 2 cap PO TID [facility] Stop: 06/03/23 08:59 Last Admin: 05/05/23 21:01 Dose: 2 cap Lorazepam (Lorazepam 0.5 Mg Tab) 0.5 mg PO Q8H PRN PRN Reason: Anxiety Stop: 06/03/23 01:14 Last Admin: 05/05/23 09:18 Dose: 0.5 mg Metoprolol Succinate (Metoprolol Succ 25mg Ext Rel Tab) 75 mg PO BID [facility] Stop: 06/03/23 01:14 Last Admin: 05/05/23 20:59 Dose: 75 mg Miscellaneous (Remove Nicoderm Patch) 1 each N/A DAILY@0859 [facility] Stop: 06/04/23 08:58 Last Admin: 05/05/23 09:13 Dose: 1 each Miscellaneous (Carbohydrates For Hypoglycemia ) 15 - 30 gm PO UD PRN PRN Reason: Hypoglycemia Protocol Stop: 06/03/23 01:14 Nicotine (Nicotine 21 Mg/24 Hr Tdsy) 21 mg TD QAM [facility] Stop: 06/03/23 00:54 Last Admin: 05/05/23 12:25 Dose: 21 mg Pantoprazole Sodium (Pantoprazole 40 Mg Tab) 40 mg PO DAILYBB [facility] Stop: 06/03/23 06:29 Last Admin: 05/06/23 06:07 Dose: 40 mg Polyethylene Glycol (Polyethylene (Miralax) 17 Gm Pack) [facility] [place] 06/03/23 08:59 Last Admin: 05/05/23 09:15 Dose: 17 gm Potassium Chloride (Potassium Chloride Crtab 20 Meq Tabcr) 40 meq PO BID [facility] Stop: 06/04/23 20:59 Last Admin: 05/05/23 21:02 Dose: 40 meq Sennosides (Senna 8.6 Mg Tab) 8.6 mg PO DAILY PRN PRN Reason: Constipation Stop: 06/03/23 01:14 Spironolactone (Spironolactone 25 Mg Tab) 25 mg PO [facility] Stop: 06/03/23 08:59 Last Admin: 05/05/23 09:14 Dose: 25 mg Tamsulosin HCl (Tamsulosin Hcl 0.4 Mg Cap) 0.8 mg PO [facility] Stop: 06/03/23 08:59 Last Admin: 05/05/23 09:13 Dose: 0.8 mg (1) Syncope Syncope type: unspecified Qualified Code(s): R55 - Syncope and collapse (5) Leukocytosis Leukocytosis type: unspecified Qualified Code(s): D72.829 - Elevated white blood cell count, unspecified
[2023-05-06] MEDS: DOCUSATE SODIUM 100 MG CAP PO SCH ×2 (08:44→21:13)
[2023-05-06] MEDS: INSULIN ASPART PER UNIT CHARGE SC SCH ×4 (08:45→21:13)
[2023-05-06] MEDS: LANTUS PER UNIT CHARGE SC SCH ×2 (08:45→21:13)
[2023-05-06] MEDS: LORazepam 0.5 MG TAB PO PRN ×2 (08:45→21:15)
[2023-05-06] MEDS: AZTREONAM 2,000 MG in DEXTROSE 5% 100 ML IV SCH (08:45)
[2023-05-06] MEDS: POTASSIUM CHLORIDE CRTAB 20 MEQ TABCR PO SCH ×3 (08:45→21:14)
[2023-05-06] MEDS: buprenorphine HCL 8 MG SUBL SL SCH ×2 (08:45→21:11)
[2023-05-06] MEDS: ADVANCED PROBIOTIC 1250 MG CAPSULE PO SCH ×3 (08:47→21:14)
[2023-05-06] MEDS: ISOSORBIDE DINITRATE 10 MG TAB PO SCH (08:47)
[2023-05-06] MEDS: METOPROLOL SUCC 25MG EXT REL TAB PO SCH ×2 (08:47→21:14)
[2023-05-06] MEDS: SPIRONOLACTONE 25 MG TAB PO SCH (08:48)
[2023-05-06] MEDS: FAMOTIDINE 20 MG TAB PO SCH (08:48)
[2023-05-06] MEDS: GABAPENTIN 800 MG TAB PO SCH ×3 (08:48→21:13)
[2023-05-06] MEDS: FERROUS SULFATE 325 MG TAB PO SCH (08:48)
[2023-05-06] MEDS: FINASTERIDE 5 MG TAB PO SCH (08:48)
[2023-05-06] MEDS: TAMSULOSIN HCL 0.4 MG CAP PO SCH (08:48)
[2023-05-06] MEDS: FOLIC ACID 1 MG TAB PO SCH (08:48)
[2023-05-06] MEDS: DULoxetine HCL 60 MG CAP PO SCH (08:48)
[2023-05-06] MEDS: NICOTINE 21 MG/24 HR TDSY TD SCH (08:48)
[2023-05-06] MEDS: FLUTICASONE PROPIONATE NA SPR 16 GM BTL SCH (08:49)
[2023-05-06] MEDS: POLYETHYLENE (MIRALAX) 17 GM PACK PO SCH (08:49)
[2023-05-06] MEDS: ENOXAPARIN INJ 40 MG/0.4 ML SYR SQ SCH ×2 (08:49→21:15)
[2023-05-06 08:56] LABS: Basophils # (auto) 0.05 K/uL (0-0.2); Basophils % (auto) 0.6 %; Eosinophils # (auto) 0.57 K/uL (0-0.50); Eosinophils % (auto) 6.5 %; Hematocrit (blood only) 39.5 % (42.0-52.0); Hemoglobin 12.2 g/dl (14.0-18.0); Immature Granulocytes # (auto) 0.06 K/uL (0.01-0.20); Immature Granulocytes % (auto) 0.7 %; Lymphocytes # (auto) 2.41 K/uL (1.2-3.4); Lymphocytes % (auto) 27.4 %; Mean Corpuscular Hemoglobin 25.3 pg (25.0-34.0); Mean Corpuscular Hgb Conc 30.9 g/dL (32.0-36.0); Mean Corpuscular Volume 81.8 fL (80.0-100.0); Monocytes # (auto) 0.55 K/uL (0.11-0.59); Monocytes % (auto) 6.3 %; Neutrophils # (auto) 5.15 K/uL (1.40-6.50); Neutrophils % (auto) 58.5 %; Platelet Count 324 K/uL (130-400); RDW Coefficient of Variation 18.5 % (11.5-14.5); RDW Standard Deviation 51.2 fL (36.4-46.3); Red Blood Count 4.83 M/uL (4.70-6.10); White Blood Count 8.79 K/ul (4.8-10.8)
[2023-05-06 09:26] LABS: BUN Creatinine Ratio 17.1 (10-20); Calcium 9.9 mg/dl (8.6-10.3); Creatinine Clr Calc Pharmacy 194.7 ml/min; Est GFR (African American) 117.8 ml/min; Est GFR (Non-African American) 101.7 ml/min; Potassium 3.3 mmol/L (3.5-5.1)
[2023-05-06 09:31] LABS: INR 1.1 (0.9-1.1); Prothrombin Time 12.3 Seconds (9.0-12.0)
[2023-05-06] MEDS: buprenorphine HCL 2 MG SUBL SL SCH (13:46)
--- NOTE | 2023-05-06 14:24 | History & Physical Bridge Note ---
Date of Service May 06, 2023 History & Physical Bridge Note I have examined the patient, reviewed the History & Physical and in the interval since the performance of the History & Physical I have noted the following changes of clinical significance: Pt with recurrent syncope-recommended a LINQ prior to discharge. Discussed the procedure and risks with the patient and consents signed.
--- NOTE | 2023-05-06 15:24 | Hospitalist Progress Note ---
Date of Service May 06, 2023 Assessment & Plan (1) Hypokalemia: Plan: Patient is a 52-year-old male with past medical history of chronic diastolic heart failure (EF 55 to 60%, TTE 2022), history CAD/STEMI as per records, history subdural hematoma/subarachnoid hemorrhage as per records (no operative intervention), hypertension, hyperlipidemia, COPD, recurrent PE on Coumadin, DM 2 insulin requiring, recurrent UTIs secondary to BPH/chronic urinary retention indwelling Lloyd catheter, chronic anemia (baseline hemoglobin 11-13), chronic pain on buprenorphine, presented to the ED with multiple falls Multiple falls Morbid obesity Ambulatory dysfunction Supratherapeutic INR Reported history of multiple falls recently. Also reported to have a fall on 05/04; reports "passing out for 1 or 2 seconds" during a bowel movement Telemetry does not show any arrhythmia. CT head personally reviewed; no acute abnormality Face CT, cervical spine CT reviewed; no acute finding. Cardiology on board; recommend aggressive KCl repletion, maintenance diuretic of torsemide 50 mg once a day, Overnight oximetry; no desaturation on 4 L of oxygen Patient to undergo loop recorder placement today. Will need outpatient bariatric surgery referral. Currently holding off on warfarin. Started on Lovenox for DVT prophylaxis. Hypokalemia Started on kcal 40mg BID also on spironolactone Chronic diastolic CHF Compensated. Plan to start on torsemide 50 mg once a day after repletion of potassium COPD No wheeze on examination. Continue inhalers. Urinary tract infection. Urine culture growing 50 K gram-negative bacilli. Likely colonization We will discontinue antibiotics and monitor. Urinary catheter exchanged. DM II HbA1C: 7.8 Continue insulin while hospitalized Monitor blood glucose levels Glycemic pharmacy consulted H/O PE Coumadin on hold On Lovenox Chronic opioid use Chronic pain Anxiety Continue home medications. Hypertension Continue metoprolol Full code Lovenox for DVT prophylaxis DispositionHome after resolution of medical issues. Time spent evaluating patient, direct bedside care, chart review, placing orders, interpretation of diagnostic studies, discussion with consultants, patient, and family members, as well as other required patient management activities is 60 minutes Please note the above document was generated using voice recognition software. It may contain grammatical, syntax or spelling errors. Any formal questions or concerns about the content, text or information contained within the body of this dictation should be directly addressed to the provider for clarification Admission and Anticipated Discharge Date Admission Date: May 04, 2023 Subjective Patient seen and examined at bedside. He is comfortably sitting up on the bed; not in any distress. Denies any chest pain, dizziness or abdominal pain Review of Systems Review of Systems: All systems reviewed & are unremarkable except as noted in Subjective Physical Exam Physical Exam: GENERAL: Awake, comfortable, morbidly obese. SKIN: Pallor, warm NECK : Supple, short neck, no tenderness CHEST : Bilateral clear breath sound. No wheeze/crackles. HEART : RRR, no obvious murmurs ABDOMEN: distention, no tenderness EXTREMITIES : Bilateral LE swelling, no LE tenderness, no conspicuous deformities noted NEUROLOGIC : Coherent, no facial asymmetry, gait and stance not assessed Results & Data Results & Data Vital Signs (Past 12 Hours) Vital Signs Temp Pulse Pulse Resp BP Pulse Ox O2 Del Method 05/06/23 08:00 Room Air 05/06/23 10:53 36.6 C 74 20 143/64 H 94 Room Air 05/06/23 07:59 36.4 C L 66 20 129/74 99 Nasal Cannula 05/06/23 07:31 63 05/06/23 07:22 80 18 99 Nasal Cannula 05/06/23 04:00 36.5 C 67 20 133/75 97 Nasal Cannula O2 Flow Rate 05/06/23 08:00 05/06/23 10:53 05/06/23 07:59 3 05/06/23 07:31 05/06/23 07:22 4 05/06/23 04:00 4 Laboratory Results Laboratory Results WBC 8.79 K/ul (4.8-10.8) 05/06/23 08:05 RBC 4.83 M/uL (4.70-6.10) 05/06/23 08:05 Hgb 12.2 g/dl (14.0-18.0) L 05/06/23 08:05 Hct 39.5 % (42.0-52.0) L 05/06/23 08:05 MCV 81.8 fL (80.0-100.0) 05/06/23 08:05 MCH 25.3 pg (25.0-34.0) 05/06/23 08:05 MCHC 30.9 g/dL (32.0-36.0) L 05/06/23 08:05 RDW Std Deviation 51.2 fL (36.4-46.3) H 05/06/23 08:05 RDW Coeff of Megan 18.5 % (11.5-14.5) H 05/06/23 08:05 Plt Count 324 K/uL (130-400) 05/06/23 08:05 MPV 10.0 fL (9.4-12.4) 05/06/23 08:05 Immature Gran % (Auto) 0.7 % 05/06/23 08:05 Neut % (Auto) 58.5 % 05/06/23 08:05 Lymph % (Auto) 27.4 % 05/06/23 08:05 [place] % (Auto) 6.3 % 05/06/23 08:05 Eos % (Auto) 6.5 % 05/06/23 08:05 Baso % (Auto) 0.6 % 05/06/23 08:05 Neut # (Auto) 5.15 K/uL (1.40-6.50) 05/06/23 08:05 Lymph # (Auto) 2.41 K/uL (1.2-3.4) 05/06/23 08:05 [place] # (Auto) 0.55 K/uL (0.11-0.59) 05/06/23 08:05 Eos # (Auto) 0.57 K/uL (0-0.50) H 05/06/23 08:05 Baso # (Auto) 0.05 K/uL (0-0.2) 05/06/23 08:05 Immature Gran # (Auto) 0.06 K/uL (0.01-0.20) 05/06/23 08:05 PT 12.3 Seconds (9.0-12.0) H 05/06/23 08:05 INR 1.1 (0.9-1.1) 05/06/23 08:05 APTT 101.3 Seconds (21.0-31.0) H* 05/03/23 19:00 PTT Ratio 3.6 05/03/23 19:00 ABG pH 7.54 (7.35-7.45) H* 05/03/23 23:19 ABG pCO2 46 mmHg (35-46) 05/03/23 23:19 ABG pO2 47 mmHg (80-95) L 05/03/23 23:19 ABG HCO3 39 mmol/L (19-24) H 05/03/23 23:19 ABG O2 Saturation 85.7 % (90-95) L 05/03/23 23:19 ABG Base Excess 14.8 mEq/L (-9-1.8) H 05/03/23 23:19 Mariano Test Pos (Pos) 05/03/23 23:19 Oxygen Given 2.5 05/03/23 23:19 Sodium 138 mmol/L (136-145) 05/06/23 08:05 Potassium 3.3 mmol/L (3.5-5.1) L 05/06/23 08:05 Chloride 94 mmol/L (98-107) L 05/06/23 08:05 Carbon Dioxide 43 mmol/L (21-32) H* 05/06/23 08:05 Anion Gap 1 (3-11) L 05/06/23 08:05 BUN 14 mg/dl (6-23) 05/06/23 08:05 Creatinine 0.82 mg/dl (0.6-1.4) 05/06/23 08:05 Est Cr Clr Drug Dosing 194.7 ml/min 05/06/23 08:05 Est GFR ( Amer) 117.8 ml/min 05/06/23 08:05 Est GFR (Non-Af Amer) 101.7 ml/min 05/06/23 08:05 BUN/Creatinine Ratio 17.1 (10-20) 05/06/23 08:05 Glucose 208 mg/dl (70-99(Fasting)) H 05/06/23 08:05 POC Glucose 230 mg/dl (70-99) H 05/06/23 12:19 Lactate 1.7 mmol/L (0.4-2.0) 05/03/23 21:47 Calcium 9.9 mg/dl (8.6-10.3) 05/06/23 08:05 Magnesium 1.9 mg/dl (1.7-2.4) 05/05/23 15:41 Total Bilirubin 0.7 mg/dl (0.2-1.0) 05/03/23 19:00 AST 16 U/L (13-39) 05/03/23 19:52 ALT 13 U/L (7-52) 05/03/23 19:00 Alkaline Phosphatase 104 U/L (34-104) 05/03/23 19:00 Troponin I High Sens 12.5 pg/ml (0-20) 05/04/23 04:20 B-Natriuretic Peptide 49 pg/ml (0-100) 05/03/23 21:47 Total Protein 7.0 gm/dl (6.0-8.3) 05/03/23 19:00 Albumin 3.4 gm/dl (3.4-5.0) 05/03/23 19:00 Globulin 3.6 gm/dl (2.5-4.0) 05/03/23 19:00 Albumin/Globulin Ratio 0.9 (0.9-2) 05/03/23 19:00 Procalcitonin 0.20 ng/ml (0-0.5) 05/03/23 21:49 Urine Color Yellow 05/03/23 Unknown Urine Appearance Clear (Clear) 05/03/23 Unknown Urine pH 6.5 (4.5-7.5) 05/03/23 Unknown Ur Specific [place] 1.009 (1.000-1.030) 05/03/23 Unknown Urine Protein Trace (Negative) H 05/03/23 Unknown Urine Glucose (UA) Negative (Negative) 05/03/23 Unknown Urine Ketones Negative (Negative) 05/03/23 Unknown Urine Blood 3+ (Negative) H 05/03/23 Unknown Urine Nitrite Negative (Negative) 05/03/23 Unknown Urine Bilirubin Negative (Negative) 05/03/23 Unknown Urine Urobilinogen Negative (Negative) 05/03/23 Unknown Ur Leukocyte Esterase 2+ (Negative) H 05/03/23 Unknown Urine WBC (Auto) >30 /hpf (0-5) H 05/03/23 Unknown Urine RBC (Auto) 10-30 /hpf (0-4) H 05/03/23 Unknown U Hyaline Cast (Auto) 1-5 /lpf (0-5) 05/03/23 Unknown U Epithel Cells (Auto) 0-5 /lpf (0-5) 05/03/23 Unknown Urine Bacteria (Auto) Negative (Negative) 05/03/23 Unknown Urine Opiates Screen Pos (Neg) H 05/04/23 16:59 Ur Methadone, Qual Neg (Neg) 05/04/23 16:59 Urine Barbiturates Neg (Neg) 05/04/23 16:59 Ur Phencyclidine (PCP) Neg (Neg) 05/04/23 16:59 U Amphetamin/Meth Scrn Neg (Neg) 05/04/23 16:59 MDMA (Ecstasy) Screen Neg (Neg) 05/04/23 16:59 U Benzodiazepines Scrn Neg (Neg) 05/04/23 16:59 Ur Cocaine Metabolite Neg (Neg) 05/04/23 16:59 U Marijuana (THC) Screen Neg (Neg) 05/04/23 16:59 Adenovirus (PCR) Not Detected (NotDetected) 05/03/23 Unknown B. pertussis DNA (PCR) Not Detected (NotDetected) 05/03/23 Unknown B.parapertussis DNA PCR Not Detected (NotDetected) 05/03/23 Unknown C. pneumoniae DNA (PCR) Not Detected (NotDetected) 05/03/23 Unknown Coronavirus OC43 (PCR) Not Detected (NotDetected) 05/03/23 Unknown Coronavirus HKU1 (PCR) Not Detected (NotDetected) 05/03/23 Unknown Coronavirus 229E (PCR) Not Detected (NotDetected) 05/03/23 Unknown SARS-CoV-2 (PCR) Not Detected (NotDetected) 05/03/23 Unknown Coronavirus NL63 (PCR) Not Detected (NotDetected) 05/03/23 Unknown Human Metapneumovir PCR Not Detected (NotDetected) 05/03/23 Unknown Influenza Type A (PCR) Not Detected (NotDetected) 05/03/23 Unknown Influenza Type B (PCR) Not Detected (NotDetected) 05/03/23 Unknown M. pneumoniae (PCR) Not Detected (NotDetected) 05/03/23 Unknown Parainfluenza 1 (PCR) Not Detected (NotDetected) 05/03/23 Unknown Parainfluenza 2 (PCR) Not Detected (NotDetected) 05/03/23 Unknown Parainfluenza 3 (PCR) Not Detected (NotDetected) 05/03/23 Unknown Parainfluenza 4 (PCR) Not Detected (NotDetected) 05/03/23 Unknown RSV (PCR) Not Detected (NotDetected) 05/03/23 Unknown Entero/Rhino (PCR) Not Detected (NotDetected) 05/03/23 Unknown Blood Type O Positive 05/04/23 04:20 Antibody Screen NEGATIVE 05/04/23 04:20 Impressions Chest X-Ray 05/03/23 18:42 XR chest 1V portable HISTORY: 52 years-old Male Chest pain, nonspecific COMPARISON: Chest CT of same day TECHNIQUE: AP view of the chest FINDINGS: Cardiac silhouette is enlarged. No pneumothorax, large pleural effusion or overt pulmonary edema. Mild subsegmental bibasilar atelectasis. Chronic left clavicular fracture deformity. Degenerative changes of the shoulders and spine. IMPRESSION: Cardiomegaly with mild subsegmental bibasilar atelectasis. ACT 112: Negative or not required by law. The above report was generated using voice recognition software. It may contain grammatical, syntax or spelling errors. Electronically signed by: Shelton Apodaca M.D. 05/04/2023 7:[address] 05/03/23 20:54 Exam(s): CT CHEST Without Contrast EXAM: CT Chest Without Intravenous Contrast CLINICAL HISTORY: Reason for exam: fall, left chest pain. TECHNIQUE: Axial computed tomography images of the chest without intravenous contrast. CTDI is 28.14 mGy and DLP is 979.17 mGy-cm. Automated exposure control was utilized for the study. A dose lowering technique was utilized adhering to the principles of ALARA. Moderate artifact from motion, body habitus and scan field of view. COMPARISON: CT chest 01/28/23. FINDINGS: Lungs: Basilar linear scarring, stable. Otherwise, clear. No consolidation. Pulmonary arteries: No engorgement. Aorta: No thoracic aortic aneurysm. Pleural space: No effusion. No pneumothorax. Heart: Stable, moderate cardiomegaly. No significant pericardial effusion. Bones/joints: No sternal, vertebral, scapular or acute clavicle fracture, as imaged, with motion artifact and body habitus significantly limiting evaluation. Soft tissues: Fatty liver is stable. Lymph nodes: No enlarged lymph nodes. IMPRESSION: 1. No pneumothorax or acute intrathoracic abnormality. 2. No significant interval change. 3. Limited evaluation due to body habitus and motion artifact. Electronically signed by: Haily Niño M.D. 05/03/23 22:[address] 05/04/23 19:49 Exam(s): CT C SPINE EXAM: CT Cervical Spine Without Intravenous Contrast CLINICAL HISTORY: Reason for exam: fall. TECHNIQUE: Axial computed tomography images of the cervical spine without intravenous contrast. CTDI is 35.95 mGy and DLP is 652.03 mGy-cm. Automated exposure control was utilized for the study. A dose lowering technique was utilized adhering to the principles of ALARA. COMPARISON: No relevant prior studies available. FINDINGS: Vertebrae: C5-6 and C6-7 spondylosis without significant bony spinal canal stenosis at any cervical level. Study is limited by patient's body habitus. Please note the cervical spine only to the mid C7 level is included on the study. No acute fracture. Discs/spinal canal/neural foramina: See above. Soft tissues: Unremarkable. IMPRESSION: No acute findings in the cervical spine. Electronically signed by: Zane Block M.D. 05/04/23 21:[address] 05/04/23 19:49 Exam(s): CT FACIAL Without Contrast EXAM: CT Maxillofacial Without Intravenous Contrast CLINICAL HISTORY: Reason for exam: trauma, epistaxis. TECHNIQUE: Axial computed tomography images of the face without intravenous contrast. CTDI is 50.62 mGy and DLP is 973.5 mGy-cm. Automated exposure control was utilized for the study. A dose lowering technique was utilized adhering to the principles of ALARA. COMPARISON: No relevant prior studies available. FINDINGS: Bones/joints: No acute fracture. Soft tissues: Unremarkable. Orbits: Unremarkable. Sinuses: Air-fluid level within the left maxillary sinus. Moderate mucosal thickening of the right maxillary sinus. Partial opacification of the right ethmoid air cells and right sphenoid sinus. Mastoid air cells: Fluid within the left mastoid air cells. IMPRESSION: 1. No acute facial bone fracture. 2. Sinus disease as described above. Electronically signed by: Zane Block M.D. 05/04/23 21:[address] 05/04/23 19:49 Exam(s): CT HEAD Without Contrast EXAM: CT Head Without Intravenous Contrast CLINICAL HISTORY: Reason for exam: head trauma. TECHNIQUE: Axial computed tomography images of the head/brain without intravenous contrast. CTDI is 37.87 mGy and DLP is 702.46 mGy-cm. Automated exposure control was utilized for the study. A dose lowering technique was utilized adhering to the principles of ALARA. COMPARISON: 04/07/2023 FINDINGS: Brain: Unremarkable. No hemorrhage. No significant white matter disease. No edema. Ventricles: Unremarkable. No ventriculomegaly. Bones/joints: Unremarkable. No acute fracture. Soft tissues: Unremarkable. Sinuses: Air-fluid level within the left maxillary sinus. Moderate mucosal thickening of the right maxillary sinus. Mastoid air cells: Unremarkable as visualized. No mastoid effusion. IMPRESSION: No acute findings in the head/brain. Sinus disease as described above. Electronically signed by: Zane Block M.D. 05/04/23 21:44 PM
--- NOTE | 2023-05-06 15:44 | Operative Report ---
Post Operative Report Pre-OP diagnosis: recurrent syncope Post Op Diagnosis: Same Procedure: Linq implant DOS: 05/06/2023 Surgeon: Dr. Chavez Anesthesia: 20cc 1% lidocaine Blood Loss: 2cc Complications: None Condition: Stable Abx: ancef Specimen: None Indications: 52yo M PMH with recurrent syncope unclear etiology, chronic heart failure with preserved ejection fraction, History of pulmonary embolism, on chronic anticoagulation with Coumadin, Severe COPD on home oxygen, Obesity hypoventilatory syndrome, Type 2 diabetes, Chronic indwelling Lloyd catheter, COPD, Medication noncompliance, Chronic pain, drug seeking behaviors. Due to patient's recurrent syncope he was recommended a LINQ insertion. Description of procedure: Pt was brought into the procedure room and connected to cardiac monitoring. A time out was performed identifying patient and procedure correctly. The pt received antibiotic prior to incision. The patient was prepped and draped in a sterile fashion over the left sternal border. Then 20 cc of 1% lidocaine where given in the 4th intercostal space to the left of the sternal border just caudal to the prior linq site. Then using the Linq insertion tool and kit the linq was inserted. Then a 4.0 vicryl interrupted suture followed by a running stitch was placed to approximate the incision and dermabond was placed. Equipment: New Device: Medtronic LINQ II [id number] SN: [id number] Parameters: Tachy 158bpm 20 beats Gibran 30 bpm for 4 beats Pause: 3 seconds AF > 1 hour Implant Measurements: R waves 0.15mV Impression: Successful new LINQ insertion due to recurrent syncope Plan: Device and wound check next week
[2023-05-06] MEDS: ceFAZolin 330 MG/ML 1 GM VIAL ONE ×2 (16:28→19:05)
[2023-05-06] MEDS: ACETAMINOPHEN 1,000 MG/100 ML VIAL IV PRN (18:01)
[2023-05-06] MEDS: ATORVASTATIN 40 MG TAB PO SCH (21:12)
[2023-05-06 23:03] LABS: Codeine Urine NEGATIVE ng/mL (<50); Hydrocodone Urine NEGATIVE ng/mL (<50); Hydromor Urine NEGATIVE ng/mL (<50); Morphine Urine NEGATIVE ng/mL (<50); Norhydrocodone Conf Ur NEGATIVE ng/mL (<50); Noroxycodone Urine 2160 ng/mL (<50); Oxycodone Urine 1570 ng/mL (<50); Oxymorph Urine 768 ng/mL (<50)
[2023-05-07] MEDS: PANTOprazole 40 MG TAB PO SCH (05:53)
[2023-05-07 06:57] LABS: Basophils # (auto) 0.05 K/uL (0-0.2); Basophils % (auto) 0.5 %; Eosinophils # (auto) 0.52 K/uL (0-0.50); Eosinophils % (auto) 5.1 %; Hematocrit (blood only) 38.8 % (42.0-52.0); Hemoglobin 12.1 g/dl (14.0-18.0); Immature Granulocytes # (auto) 0.14 K/uL (0.01-0.20); Immature Granulocytes % (auto) 1.4 %; Lymphocytes # (auto) 2.95 K/uL (1.2-3.4); Mean Corpuscular Hemoglobin 25.2 pg (25.0-34.0); Mean Corpuscular Hgb Conc 31.2 g/dL (32.0-36.0); Mean Corpuscular Volume 80.7 fL (80.0-100.0); Monocytes # (auto) 0.62 K/uL (0.11-0.59); Monocytes % (auto) 6.1 %; Neutrophils # (auto) 5.89 K/uL (1.40-6.50); Neutrophils % (auto) 57.9 %; Platelet Count 311 K/uL (130-400); RDW Coefficient of Variation 18.6 % (11.5-14.5); RDW Standard Deviation 51.3 fL (36.4-46.3); Red Blood Count 4.81 M/uL (4.70-6.10); White Blood Count 10.17 K/ul (4.8-10.8)
[2023-05-07 07:06] LABS: INR 1.2 (0.9-1.1); Prothrombin Time 12.8 Seconds (9.0-12.0)
[2023-05-07] MEDS: FORMOTEROL 20 MCG/2 ML VIAL NEB SCH ×2 (07:31→19:23)
[2023-05-07] MEDS: BUDESONIDE 0.5 MG/2 ML VIAL (PULMICORT) NEB SCH ×2 (07:31→19:23)
[2023-05-07 07:50] LABS: Calcium 9.3 mg/dl (8.6-10.3); Creatinine Clr Calc Pharmacy 185.7 ml/min; Est GFR (African American) 115.6 ml/min; Est GFR (Non-African American) 99.7 ml/min; Potassium 3.8 mmol/L (3.5-5.1)
[2023-05-07] MEDS: GABAPENTIN 800 MG TAB PO SCH ×3 (09:21→20:13)
[2023-05-07] MEDS: FINASTERIDE 5 MG TAB PO SCH (09:22)
[2023-05-07] MEDS: FERROUS SULFATE 325 MG TAB PO SCH (09:22)
[2023-05-07] MEDS: POTASSIUM CHLORIDE CRTAB 20 MEQ TABCR PO SCH ×3 (09:22→20:14)
[2023-05-07] MEDS: ADVANCED PROBIOTIC 1250 MG CAPSULE PO SCH ×3 (09:22→20:13)
[2023-05-07] MEDS: METOPROLOL SUCC 25MG EXT REL TAB PO SCH ×2 (09:22→20:12)
[2023-05-07] MEDS: TAMSULOSIN HCL 0.4 MG CAP PO SCH (09:23)
[2023-05-07] MEDS: SPIRONOLACTONE 25 MG TAB PO SCH (09:23)
[2023-05-07] MEDS: FAMOTIDINE 20 MG TAB PO SCH (09:23)
[2023-05-07] MEDS: DULoxetine HCL 60 MG CAP PO SCH (09:24)
[2023-05-07] MEDS: FLUTICASONE PROPIONATE NA SPR 16 GM BTL SCH (09:24)
[2023-05-07] MEDS: ENOXAPARIN INJ 40 MG/0.4 ML SYR SQ SCH ×2 (09:24→20:14)
[2023-05-07] MEDS: ISOSORBIDE DINITRATE 10 MG TAB PO SCH (09:24)
[2023-05-07] MEDS: DOCUSATE SODIUM 100 MG CAP PO SCH ×2 (09:24→20:13)
[2023-05-07] MEDS: FOLIC ACID 1 MG TAB PO SCH (09:25)
[2023-05-07] MEDS: POLYETHYLENE (MIRALAX) 17 GM PACK PO SCH (09:25)
--- NOTE | 2023-05-07 09:28 | Cardiology Progress Note ---
Date of Service May 07, 2023 Assessment & Plan (1) Syncope: (2) Hypokalemia: (3) (HFpEF) heart failure with preserved ejection fraction: (4) Subtherapeutic international normalized ratio (INR): Plan IMPRESSION: Medically complex 52 year old male who presented with LOC/syncope and hypokalemia. Patient appears compensated from a volume standpoint on current diuretic regimen. PLAN: * Aggressive KCL repletion inpatient with improvement this morning-- Continue KCL 40 meq po TID (increased from BID dosing) * Goal K+ >4.0, mag goal >2.0 * Maintenance diuretic - Discharge home on Torsemide 50 mg po per day. * Will avoid metolazone due to hypokalemia * REPEAT BMP in 1 week outpatient * Titrate Coumadin to an INR goal between 2-3. (Hx of PE- will defer to primary service) * Telemetry while inpatient to evaluate for sushma or tachyarrhythmias * Implantable Loop to be able to better understand rhythm during syncope (Placed 05/06)- will establish with the [facility] device clinic as an outpatient. * Walking oximetry - perhaps profound ambulatory hypoxia is leading to syncope * Overnight oximetry - no desaturations on 4 Liters * Outpt sleep study may prove helpful * Potential outpt Cardiac MRI * Bariatrics referral as an outpatient - explained to patient that obesity links many of his current challenges Case discussed with Dr. Penn- No further cardiology recommendations at this time. Will sign off. Admission and Anticipated Discharge Date Admission Date: May 04, 2023 Supervising Physician Co-Signing Physician Notes Patient seen and examined at the bedside. Linq implanted without complication. Recent concerns regarding profound hypokalemia. Patient adequately supplemented with normal serum potassium today. Notes diffuse musculoskeletal soreness. No specific chest pain, orthopnea, PND, or shortness of breath at rest. Reports continued episodes of "collapse" prior to admission. Telemetry demonstrates sinus rhythm. No dysrhythmias. PE: VSS. Gen: NAD, AAO x3. Heart: Regular rhythm, normal S1-S2. No murmur. Lungs: Clear bilateral, no rales, rhonchi, wheeze. Extremities: Mild bilateral edema with stasis changes. A/P: Agree with above AP history, physical exam, assessment and plan. Recommend torsemide 50 mg daily in outpatient setting. Discontinue metolazone due to hypokalemia. Repeat basic metabolic panel in 1 week as outpatient. Implantable loop recorder will be followed by the [facility] heart rhythm device clinic. Supplemental oxygen as needed. No further inpatient cardiac testing at this time. Thank you for allowing us to participate in the care of your patient. Cardiology will sign off. Please call with questions. Subjective 52 yo male who initially presented with several episodes of LOC/syncope. Found to be profoundly hypokalemic. Potassium supplementation was increased to 40 mg once 3 times daily (previously twice daily). Aldactone 25 mg daily was continued. Metolazone discontinued. Torsemide increased to 50 mg daily (previously on furosemide 40 mg twice daily as an outpatient) In regards to syncope multiple outpatient ambulatory monitors have been unremarkable and he ultimately underwent a loop recorder placement yesterday 05/06. Upon entrance into the room patient resting in bed. No acute distress. No concerns. Denies any further issues with confusion or syncope. Notes some fatigue. No chest pain, breathing at baseline. Overall patient appears compensated from a volume standpoint. Lloyd cath in place for accurate I&Os. Potassium improved this am to 3.8 on increased KCL dosing. Tele: SR with PACs 70-80s I&O: -5.4L Weight: 213>>210.2 kg Review of Systems Review of Systems: All systems reviewed & are unremarkable except as noted in HPI & below Physical Exam Constitutional: WD/WN, vitals as above + morbidly obese; no acute distress Neck: + thick neck Respiratory: no labored breathing and no cough Auscultation: + diminished lung sounds; no rales and no rhonchi Cardiovascular: Rate/Rhythm: regular rate and regular rhythm Heart Sounds: no murmur (No audible murmur; distant heart sounds ) Vessels: no JVD Extremities: + edema (1+; chronic venous stasis) Gastrointestinal (Abdomen): normal bowel sounds, soft, nontender, no hepatosplenomegaly Skin: no rashes, warm and dry Results & Data Vital Signs (Past 12 Hours) Vital Signs Temp Pulse Pulse Resp BP Pulse Ox O2 Del Method 05/07/23 07:58 36.6 C 66 17 129/74 98 Nasal Cannula 05/07/23 07:45 65 05/07/23 07:31 78 18 96 Nasal Cannula 05/07/23 03:40 36.7 C 69 16 105/56 L 96 Nasal Cannula 05/07/23 00:24 76 05/06/23 22:52 Room Air 05/06/23 22:42 36.8 C 77 18 108/70 97 Nasal Cannula O2 Flow Rate 05/07/23 07:58 4 05/07/23 07:45 05/07/23 07:31 4 05/07/23 03:40 4 05/07/23 00:24 05/06/23 22:52 05/06/23 22:42 4 Laboratory Results Coagulation 05/07/23 Range/Units 06:22 PT 12.8 H (9.0-12.0) Seconds CBC 05/07/23 Range/Units 06:22 WBC 10.17 (4.8-10.8) K/ul RBC 4.81 (4.70-6.10) M/uL Hgb 12.1 L (14.0-18.0) g/dl Hct 38.8 L (42.0-52.0) % Plt Count 311 (130-400) K/uL Neut # (Auto) 5.89 (1.40-6.50) K/uL Lymph # (Auto) 2.95 (1.2-3.4) K/uL [place] # (Auto) 0.62 H (0.11-0.59) K/uL Eos # (Auto) 0.52 H (0-0.50) K/uL Baso # (Auto) 0.05 (0-0.2) K/uL Comprehensive Metabolic Panel 05/07/23 Range/Units 06:22 Sodium 138 (136-145) mmol/L Potassium 3.8 (3.5-5.1) mmol/L Chloride 100 (98-107) mmol/L Carbon Dioxide 35 H (21-32) mmol/L BUN 12 (6-23) mg/dl Creatinine 0.86 (0.6-1.4) mg/dl Glucose 206 H (70-99(Fasting)) mg/dl Calcium 9.3 (8.6-10.3) mg/dl Intake and Output 05/06/23 05/07/23 05/07/23 22:59 06:59 14:59 Intake Total 1300 / 1650 240 / 1650 Output Total 1201 / 2101 900 / 2101 Balance 99 / -451 -660 / -451 Intake: IV 100 / 210 Acetaminophen 1,000 mg In 100 100 / 100 ml @ 400 mls/hr IV DAILY PRN Rx #:[id number] Oral 1200 / 1440 240 / 1440 Output: Urine Amount (Catheter) 1199 Lloyd/Indwelling 1199 # Bowel Movements Other: Weight 210.2 kg Weight Measurement Method Built in [facility] (1) Syncope Syncope type: unspecified Qualified Code(s): R55 - Syncope and collapse
[2023-05-07] MEDS: LANTUS PER UNIT CHARGE SC SCH ×2 (09:33→20:15)
[2023-05-07] MEDS: INSULIN ASPART PER UNIT CHARGE SC SCH ×4 (09:33→20:15)
[2023-05-07] MEDS: buprenorphine HCL 8 MG SUBL SL SCH ×2 (09:33→20:13)
[2023-05-07] MEDS: NICOTINE 21 MG/24 HR TDSY TD SCH (10:47)
[2023-05-07] MEDS: buprenorphine HCL 2 MG SUBL SL SCH ×2 (13:13→13:20)
--- NOTE | 2023-05-07 13:42 | Hospitalist Progress Note ---
Date of Service May 07, 2023 Assessment & Plan (1) Hypokalemia: Plan: Patient is a 52-year-old male with past medical history of chronic diastolic heart failure (EF 55 to 60%, TTE 2022), history CAD/STEMI as per records, history subdural hematoma/subarachnoid hemorrhage as per records (no operative intervention), hypertension, hyperlipidemia, COPD, recurrent PE on Coumadin, DM 2 insulin requiring, recurrent UTIs secondary to BPH/chronic urinary retention indwelling Lloyd catheter, chronic anemia (baseline hemoglobin 11-13), chronic pain on buprenorphine, presented to the ED with multiple falls Multiple falls Morbid obesity Ambulatory dysfunction Supratherapeutic INR Reported history of multiple falls recently. Also reported to have a fall on 05/04; reports "passing out for 1 or 2 seconds" during a bowel movement Telemetry does not show any arrhythmia. CT head personally reviewed; no acute abnormality Face CT, cervical spine CT reviewed; no acute finding. Cardiology on board; recommend aggressive KCl repletion, maintenance diuretic of torsemide 50 mg once a day, Overnight oximetry; no desaturation on 4 L of oxygen Patient underwent loop recorder placement on May 05, 2023. Will need outpatient bariatric surgery referral. Restarted on Coumadin. Started on Lovenox for DVT prophylaxis. Hypokalemia Started on kcal 40mg BID also on spironolactone Chronic diastolic CHF Compensated. Plan to start on torsemide 50 mg once a day after repletion of potassium COPD No wheeze on examination. Continue inhalers. Urinary tract infection. Urine culture growing 3 types of organisms all moderate count. We will discontinue antibiotics and monitor. Urinary catheter exchanged on 05/06. DM II HbA1C: 7.8 Continue insulin while hospitalized Monitor blood glucose levels Glycemic pharmacy consulted H/O PE Coumadin on hold On Lovenox Chronic opioid use Chronic pain Anxiety Continue home medications. Hypertension Continue metoprolol Full code Lovenox for DVT prophylaxis DispositionHome after resolution of medical issues. Likely in a.m. Time spent evaluating patient, direct bedside care, chart review, placing orders, interpretation of diagnostic studies, discussion with consultants, patient, and family members, as well as other required patient management activities is 60 minutes Please note the above document was generated using voice recognition software. It may contain grammatical, syntax or spelling errors. Any formal questions or concerns about the content, text or information contained within the body of this dictation should be directly addressed to the provider for clarification Admission and Anticipated Discharge Date Admission Date: May 04, 2023 Subjective Patient seen and examined at bedside. He is sitting up on the bed; not in distress. Denies fever, chills, chest pain or shortness of breath. Physical Exam Physical Exam: GENERAL: Awake, comfortable, morbidly obese. SKIN: Pallor, warm NECK : Supple, short neck, no tenderness CHEST : Bilateral clear breath sound. No wheeze/crackles. HEART : RRR, no obvious murmurs ABDOMEN: distention, no tenderness EXTREMITIES : Bilateral LE swelling, no LE tenderness, no conspicuous deformities noted NEUROLOGIC : Coherent, no facial asymmetry, gait and stance not assessed Results & Data Results & Data Vital Signs (Past 12 Hours) Vital Signs Temp Pulse Pulse Resp BP Pulse Ox O2 Del Method 05/07/23 11:15 36.8 C 67 17 116/68 91 Room Air 05/07/23 09:55 Room Air 05/07/23 07:58 36.6 C 66 17 129/74 98 Nasal Cannula 05/07/23 07:45 65 05/07/23 07:31 78 18 96 Nasal Cannula 05/07/23 03:40 36.7 C 69 16 105/56 L 96 Nasal Cannula O2 Flow Rate 05/07/23 11:15 05/07/23 09:55 05/07/23 07:58 4 05/07/23 07:45 05/07/23 07:31 4 05/07/23 03:40 4 Laboratory Results Laboratory Results WBC 10.17 K/ul (4.8-10.8) 05/07/23 06:22 RBC 4.81 M/uL (4.70-6.10) 05/07/23 06:22 Hgb 12.1 g/dl (14.0-18.0) L 05/07/23 06:22 Hct 38.8 % (42.0-52.0) L 05/07/23 06:22 MCV 80.7 fL (80.0-100.0) 05/07/23 06:22 MCH 25.2 pg (25.0-34.0) 05/07/23 06:22 MCHC 31.2 g/dL (32.0-36.0) L 05/07/23 06:22 RDW Std Deviation 51.3 fL (36.4-46.3) H 05/07/23 06: RDW Coeff of Megan 18.6 % (11.5-14.5) H 05/07/23 06: Plt Count 311 K/uL (130-400) 05/07/23 06:22 MPV 10.0 fL (9.4-12.4) 05/07/23 06:22 Immature Gran % (Auto) 1.4 % 05/07/23 06: Neut % (Auto) 57.9 % 05/07/23 06:22 Lymph % (Auto) 29.0 % 05/07/23 06:22 [place] % (Auto) 6.1 % 05/07/23 06:22 Eos % (Auto) 5.1 % 05/07/23 06:22 Baso % (Auto) 0.5 % 05/07/23 06:22 Neut # (Auto) 5.89 K/uL (1.40-6.50) 05/07/23 06:22 Lymph # (Auto) 2.95 K/uL (1.2-3.4) 05/07/23 06:22 [place] # (Auto) 0.62 K/uL (0.11-0.59) H 05/07/23 06:22 Eos # (Auto) 0.52 K/uL (0-0.50) H 05/07/23 06:22 Baso # (Auto) 0.05 K/uL (0-0.2) 05/07/23 06: Immature Gran # (Auto) 0.14 K/uL (0.01-0.20) 05/07/23 06: PT 12.8 Seconds (9.0-12.0) H 05/07/23 06: INR 1.2 (0.9-1.1) H 05/07/23 06:22 APTT 101.3 Seconds (21.0-31.0) H* 05/03/23 19:00 PTT Ratio 3.6 05/03/23 19:00 ABG pH 7.54 (7.35-7.45) H* 05/03/23 23:19 ABG pCO2 46 mmHg (35-46) 05/03/23 23:19 ABG pO2 47 mmHg (80-95) L 05/03/23 23:19 ABG HCO3 39 mmol/L (19-24) H 05/03/23 23:19 ABG O2 Saturation 85.7 % (90-95) L 05/03/23 23:19 ABG Base Excess 14.8 mEq/L (-9-1.8) H 05/03/23 23:19 Mariano Test Pos (Pos) 05/03/23 23:19 Oxygen Given 2.5 05/03/23 23:19 Sodium 138 mmol/L (136-145) 05/07/23 06:22 Potassium 3.8 mmol/L (3.5-5.1) 05/07/23 06:22 Chloride 100 mmol/L (98-107) 05/07/23 06:22 Carbon Dioxide 35 mmol/L (21-32) H 05/07/23 06:22 Anion Gap 3 (3-11) 05/07/23 06:22 BUN 12 mg/dl (6-23) 05/07/23 06:22 Creatinine 0.86 mg/dl (0.6-1.4) 05/07/23 06:22 Est Cr Clr Drug Dosing 185.7 ml/min 05/07/23 06:22 Est GFR ( Amer) 115.6 ml/min 05/07/23 06:22 Est GFR (Non-Af Amer) 99.7 ml/min 05/07/23 06:22 BUN/Creatinine Ratio 14.0 (10-20) 05/07/23 06:22 Glucose 206 mg/dl (70-99(Fasting)) H 05/07/23 06:22 POC Glucose 199 mg/dl (70-99) H 05/07/23 12:07 Lactate 1.7 mmol/L (0.4-2.0) 05/03/23 21:47 Calcium 9.3 mg/dl (8.6-10.3) 05/07/23 06:22 Magnesium 1.9 mg/dl (1.7-2.4) 05/05/23 15:41 Total Bilirubin 0.7 mg/dl (0.2-1.0) 05/03/23 19:00 AST 16 U/L (13-39) 05/03/23 19:52 ALT 13 U/L (7-52) 05/03/23 19:00 Alkaline Phosphatase 104 U/L (34-104) 05/03/23 19:00 Troponin I High Sens 12.5 pg/ml (0-20) 05/04/23 04:20 B-Natriuretic Peptide 49 pg/ml (0-100) 05/03/23 21:47 Total Protein 7.0 gm/dl (6.0-8.3) 05/03/23 19:00 Albumin 3.4 gm/dl (3.4-5.0) 05/03/23 19:00 Globulin 3.6 gm/dl (2.5-4.0) 05/03/23 19:00 Albumin/Globulin Ratio 0.9 (0.9-2) 05/03/23 19:00 Procalcitonin 0.20 ng/ml (0-0.5) 05/03/23 21:49 Urine Color Yellow 05/03/23 Unknown Urine Appearance Clear (Clear) 05/03/23 Unknown Urine pH 6.5 (4.5-7.5) 05/03/23 Unknown Ur Specific [place] 1.009 (1.000-1.030) 05/03/23 Unknown Urine Protein Trace (Negative) H 05/03/23 Unknown Urine Glucose (UA) Negative (Negative) 05/03/23 Unknown Urine Ketones Negative (Negative) 05/03/23 Unknown Urine Blood 3+ (Negative) H 05/03/23 Unknown Urine Nitrite Negative (Negative) 05/03/23 Unknown Urine Bilirubin Negative (Negative) 05/03/23 Unknown Urine Urobilinogen Negative (Negative) 05/03/23 Unknown Ur Leukocyte Esterase 2+ (Negative) H 05/03/23 Unknown Urine WBC (Auto) >30 /hpf (0-5) H 05/03/23 Unknown Urine RBC (Auto) 10-30 /hpf (0-4) H 05/03/23 Unknown U Hyaline Cast (Auto) 1-5 /lpf (0-5) 05/03/23 Unknown U Epithel Cells (Auto) 0-5 /lpf (0-5) 05/03/23 Unknown Urine Bacteria (Auto) Negative (Negative) 05/03/23 Unknown Urine Opiates Screen Pos (Neg) H 05/04/23 16:59 U Codeine Confrm GC/MS NEGATIVE ng/mL (<50) 05/04/23 16:59 Ur Morphine (GC/MS) NEGATIVE ng/mL (<50) 05/04/23 16:59 Ur Hydrocodone (GC/MS) NEGATIVE ng/mL (<50) 05/04/23 16:59 Ur Norhydrocodone NEGATIVE ng/mL (<50) 05/04/23 16:59 Ur Noroxycodone 2160 ng/mL (<50) H 05/04/23 16:59 Urine Oxycodone (GC/MS) 1570 ng/mL (<50) H 05/04/23 16:59 U Oxymorphone GC/MS 768 ng/mL (<50) H 05/04/23 16:59 Ur Methadone, Qual Neg (Neg) 05/04/23 16:59 Ur Hydromorphone (GC/MS) NEGATIVE ng/mL (<50) 05/04/23 16:59 Urine Barbiturates Neg (Neg) 05/04/23 16:59 Ur Phencyclidine (PCP) Neg (Neg) 05/04/23 16:59 U Amphetamin/Meth Scrn Neg (Neg) 05/04/23 16:59 MDMA (Ecstasy) Screen Neg (Neg) 05/04/23 16:59 U Benzodiazepines Scrn Neg (Neg) 05/04/23 16:59 Ur Cocaine Metabolite Neg (Neg) 05/04/23 16:59 U Marijuana (THC) Screen Neg (Neg) 05/04/23 16:59 Drug Screen Comment SEE NOTE 05/04/23 16:59 Adenovirus (PCR) Not Detected (NotDetected) 05/03/23 Unknown B. pertussis DNA (PCR) Not Detected (NotDetected) 05/03/23 Unknown B.parapertussis DNA PCR Not Detected (NotDetected) 05/03/23 Unknown C. pneumoniae DNA (PCR) Not Detected (NotDetected) 05/03/23 Unknown Coronavirus OC43 (PCR) Not Detected (NotDetected) 05/03/23 Unknown Coronavirus HKU1 (PCR) Not Detected (NotDetected) 05/03/23 Unknown Coronavirus 229E (PCR) Not Detected (NotDetected) 05/03/23 Unknown SARS-CoV-2 (PCR) Not Detected (NotDetected) 05/03/23 Unknown Coronavirus NL63 (PCR) Not Detected (NotDetected) 05/03/23 Unknown Human Metapneumovir PCR Not Detected (NotDetected) 05/03/23 Unknown Influenza Type A (PCR) Not Detected (NotDetected) 05/03/23 Unknown Influenza Type B (PCR) Not Detected (NotDetected) 05/03/23 Unknown M. pneumoniae (PCR) Not Detected (NotDetected) 05/03/23 Unknown Parainfluenza 1 (PCR) Not Detected (NotDetected) 05/03/23 Unknown Parainfluenza 2 (PCR) Not Detected (NotDetected) 05/03/23 Unknown Parainfluenza 3 (PCR) Not Detected (NotDetected) 05/03/23 Unknown Parainfluenza 4 (PCR) Not Detected (NotDetected) 05/03/23 Unknown RSV (PCR) Not Detected (NotDetected) 05/03/23 Unknown Entero/Rhino (PCR) Not Detected (NotDetected) 05/03/23 Unknown Blood Type O Positive 05/04/23 04:20 Antibody Screen NEGATIVE 05/04/23 04:20 Impressions Chest X-Ray 05/03/23 18:42 XR chest 1V portable HISTORY: 52 years-old Male Chest pain, nonspecific COMPARISON: Chest CT of same day TECHNIQUE: AP view of the chest FINDINGS: Cardiac silhouette is enlarged. No pneumothorax, large pleural effusion or overt pulmonary edema. Mild subsegmental bibasilar atelectasis. Chronic left clavicular fracture deformity. Degenerative changes of the shoulders and spine. IMPRESSION: Cardiomegaly with mild subsegmental bibasilar atelectasis. ACT 112: Negative or not required by law. The above report was generated using voice recognition software. It may contain grammatical, syntax or spelling errors. Electronically signed by: Shelton Apodaca M.D. 05/04/2023 7:[address] 05/03/23 20:54 Exam(s): CT CHEST Without Contrast EXAM: CT Chest Without Intravenous Contrast CLINICAL HISTORY: Reason for exam: fall, left chest pain. TECHNIQUE: Axial computed tomography images of the chest without intravenous contrast. CTDI is 28.14 mGy and DLP is 979.17 mGy-cm. Automated exposure control was utilized for the study. A dose lowering technique was utilized adhering to the principles of ALARA. Moderate artifact from motion, body habitus and scan field of view. COMPARISON: CT chest 01/28/23. FINDINGS: Lungs: Basilar linear scarring, stable. Otherwise, clear. No consolidation. Pulmonary arteries: No engorgement. Aorta: No thoracic aortic aneurysm. Pleural space: No effusion. No pneumothorax. Heart: Stable, moderate cardiomegaly. No significant pericardial effusion. Bones/joints: No sternal, vertebral, scapular or acute clavicle fracture, as imaged, with motion artifact and body habitus significantly limiting evaluation. Soft tissues: Fatty liver is stable. Lymph nodes: No enlarged lymph nodes. IMPRESSION: 1. No pneumothorax or acute intrathoracic abnormality. 2. No significant interval change. 3. Limited evaluation due to body habitus and motion artifact. Electronically signed by: Haily Niño M.D. 05/03/23 22:[address] 05/04/23 19:49 Exam(s): CT C SPINE EXAM: CT Cervical Spine Without Intravenous Contrast CLINICAL HISTORY: Reason for exam: fall. TECHNIQUE: Axial computed tomography images of the cervical spine without intravenous contrast. CTDI is 35.95 mGy and DLP is 652.03 mGy-cm. Automated exposure control was utilized for the study. A dose lowering technique was utilized adhering to the principles of ALARA. COMPARISON: No relevant prior studies available. FINDINGS: Vertebrae: C5-6 and C6-7 spondylosis without significant bony spinal canal stenosis at any cervical level. Study is limited by patient's body habitus. Please note the cervical spine only to the mid C7 level is included on the study. No acute fracture. Discs/spinal canal/neural foramina: See above. Soft tissues: Unremarkable. IMPRESSION: No acute findings in the cervical spine. Electronically signed by: Zane Block M.D. 05/04/23 21:[address] 05/04/23 19:49 Exam(s): CT FACIAL Without Contrast EXAM: CT Maxillofacial Without Intravenous Contrast CLINICAL HISTORY: Reason for exam: trauma, epistaxis. TECHNIQUE: Axial computed tomography images of the face without intravenous contrast. CTDI is 50.62 mGy and DLP is 973.5 mGy-cm. Automated exposure control was utilized for the study. A dose lowering technique was utilized adhering to the principles of ALARA. COMPARISON: No relevant prior studies available. FINDINGS: Bones/joints: No acute fracture. Soft tissues: Unremarkable. Orbits: Unremarkable. Sinuses: Air-fluid level within the left maxillary sinus. Moderate mucosal thickening of the right maxillary sinus. Partial opacification of the right ethmoid air cells and right sphenoid sinus. Mastoid air cells: Fluid within the left mastoid air cells. IMPRESSION: 1. No acute facial bone fracture. 2. Sinus disease as described above. Electronically signed by: Zane Block M.D. 05/04/23 21:[address] 05/04/23 19:49 Exam(s): CT HEAD Without Contrast EXAM: CT Head Without Intravenous Contrast CLINICAL HISTORY: Reason for exam: head trauma. TECHNIQUE: Axial computed tomography images of the head/brain without intravenous contrast. CTDI is 37.87 mGy and DLP is 702.46 mGy-cm. Automated exposure control was utilized for the study. A dose lowering technique was utilized adhering to the principles of ALARA. COMPARISON: 04/07/2023 FINDINGS: Brain: Unremarkable. No hemorrhage. No significant white matter disease. No edema. Ventricles: Unremarkable. No ventriculomegaly. Bones/joints: Unremarkable. No acute fracture. Soft tissues: Unremarkable. Sinuses: Air-fluid level within the left maxillary sinus. Moderate mucosal thickening of the right maxillary sinus. Mastoid air cells: Unremarkable as visualized. No mastoid effusion. IMPRESSION: No acute findings in the head/brain. Sinus disease as described above. Electronically signed by: Zane Block M.D. 05/04/23 21:44 PM
[2023-05-07] MEDS: ACETAMINOPHEN 1,000 MG/100 ML VIAL IV PRN ×2 (14:14→22:43)
[2023-05-07] MEDS: TORSEMIDE 100 MG TAB PO SCH (14:36)
[2023-05-07] MEDS ORDERED: WARFARIN SOD 2.5 MG TAB PO SCH (16:00)
[2023-05-07] MEDS: ATORVASTATIN 40 MG TAB PO SCH (20:13)
[2023-05-07] MEDS: MICONAZOLE NITRATE POWDER 85 GM EXT SCH (20:16)
[2023-05-08] MEDS: PANTOprazole 40 MG TAB PO SCH (06:22)
[2023-05-08] MEDS: TORSEMIDE 100 MG TAB PO SCH (07:39)
[2023-05-08] MEDS: METOPROLOL SUCC 25MG EXT REL TAB PO SCH (07:39)
[2023-05-08] MEDS: FERROUS SULFATE 325 MG TAB PO SCH (07:44)
[2023-05-08] MEDS: FOLIC ACID 1 MG TAB PO SCH (07:44)
[2023-05-08] MEDS: POTASSIUM CHLORIDE CRTAB 20 MEQ TABCR PO SCH (07:45)
[2023-05-08] MEDS: FINASTERIDE 5 MG TAB PO SCH (07:45)
[2023-05-08] MEDS: FAMOTIDINE 20 MG TAB PO SCH (07:45)
[2023-05-08] MEDS: GABAPENTIN 800 MG TAB PO SCH (07:45)
[2023-05-08] MEDS: TAMSULOSIN HCL 0.4 MG CAP PO SCH (07:45)
[2023-05-08] MEDS: DULoxetine HCL 60 MG CAP PO SCH (07:45)
[2023-05-08] MEDS: ISOSORBIDE DINITRATE 10 MG TAB PO SCH (07:46)
[2023-05-08] MEDS: ADVANCED PROBIOTIC 1250 MG CAPSULE PO SCH (07:46)
[2023-05-08] MEDS: MICONAZOLE NITRATE POWDER 85 GM EXT SCH (07:46)
[2023-05-08] MEDS: FLUTICASONE PROPIONATE NA SPR 16 GM BTL SCH (07:47)
[2023-05-08] MEDS: POLYETHYLENE (MIRALAX) 17 GM PACK PO SCH (07:47)
[2023-05-08] MEDS: ENOXAPARIN INJ 40 MG/0.4 ML SYR SQ SCH (07:48)
[2023-05-08] MEDS: NICOTINE 21 MG/24 HR TDSY TD SCH (07:49)
[2023-05-08] MEDS: FORMOTEROL 20 MCG/2 ML VIAL NEB SCH (07:50)
[2023-05-08] MEDS: BUDESONIDE 0.5 MG/2 ML VIAL (PULMICORT) NEB SCH (07:50)
[2023-05-08] MEDS: buprenorphine HCL 8 MG SUBL SL SCH (08:04)
[2023-05-08 08:37] LABS: Basophils # (auto) 0.07 K/uL (0-0.2); Basophils % (auto) 0.6 %; Eosinophils # (auto) 0.59 K/uL (0-0.50); Eosinophils % (auto) 5.5 %; Hematocrit (blood only) 40.2 % (42.0-52.0); Hemoglobin 12.3 g/dl (14.0-18.0); Immature Granulocytes # (auto) 0.15 K/uL (0.01-0.20); Immature Granulocytes % (auto) 1.4 %; Lymphocytes # (auto) 3.03 K/uL (1.2-3.4); Lymphocytes % (auto) 28.1 %; Mean Corpuscular Hemoglobin 25.4 pg (25.0-34.0); Mean Corpuscular Hgb Conc 30.6 g/dL (32.0-36.0); Mean Corpuscular Volume 82.9 fL (80.0-100.0); Mean Platelet Volume 9.7 fL (9.4-12.4); Monocytes # (auto) 0.49 K/uL (0.11-0.59); Monocytes % (auto) 4.5 %; Neutrophils # (auto) 6.46 K/uL (1.40-6.50); Neutrophils % (auto) 59.9 %; Platelet Count 304 K/uL (130-400); RDW Coefficient of Variation 19.1 % (11.5-14.5); RDW Standard Deviation 53.8 fL (36.4-46.3); Red Blood Count 4.85 M/uL (4.70-6.10); White Blood Count 10.79 K/ul (4.8-10.8)
[2023-05-08 08:48] LABS: Calcium 9.8 mg/dl (8.6-10.3); Creatinine Clr Calc Pharmacy 151.6 ml/min; Est GFR (African American) 93.1 ml/min; Est GFR (Non-African American) 80.3 ml/min; Potassium 4.4 mmol/L (3.5-5.1)
[2023-05-08 08:58] LABS: INR 1.2 (0.9-1.1)
[2023-05-08] MEDS: SPIRONOLACTONE 25 MG TAB PO SCH (09:03)
[2023-05-08] MEDS: DOCUSATE SODIUM 100 MG CAP PO SCH (09:03)
[2023-05-08] MEDS: INSULIN ASPART PER UNIT CHARGE SC SCH (09:25)
[2023-05-08] MEDS: LANTUS PER UNIT CHARGE SC SCH (09:25)
--- NOTE | 2023-05-08 13:08 | Discharge Summary ---
Date of Service May 08, 2023 Admission HPI Per Admitting Provider History obtained from patient and records. Medical history significant for chronic diastolic heart failure (EF 55 to 60%, TTE 2022), history CAD/STEMI as per records, history subdural hematoma/subarachnoid hemorrhage as per records (no operative intervention), hypertension, hyperlipidemia, COPD, recurrent PE on Coumadin, DM 2 insulin requiring, recurrent UTIs secondary to BPH/chronic urinary retention indwelling Lloyd catheter, chronic anemia (baseline hemoglobin 11-13), chronic pain on buprenorphine, drug-seeking behavior as per records, ongoing tobacco abuse. Monthly [facility] confinements the last few years. Last confinement last month for COPD exacerbation and Klebsiella/VRE UTI status post antibiotic Rx. Recurrent syncopal events at home yesterday. Lightheadedness while patient walking. No witnessed seizures. Repeated head trauma. Left-sided chest pain going to the arm which she gets from time to time. Dysuria symptoms without actual abdominal/flank pain. Patient brought to ER for evaluation. INR noted to be 9. Vitamin K administered at the ER. Levaquin administered at the ER for UTI. Medical History as above Surgical History : Foot/toe surgery, nerve repair, hand surgery, scalp neck w ound injury Family History : Breast cancer, heart disease, COPD Personal/Social history : One pack daily, no EtOH intake, disabled Admission Exam Per Admitting Provider GENERAL: Comfortable eating a sandwich, morbidly obese, looks older than stated age, no respiratory distress SKIN: Pallor, warm HEENT: Alopecia, bespectacled, pale palpebral conjunctivae, no ptosis, dry buccal mucosa, nasal cannula in place NECK : Supple, short neck, no tenderness CHEST : Decreased breath sounds, expiratory wheezes, no tenderness HEART : RRR, no obvious murmurs ABDOMEN: distention, no tenderness EXTREMITIES : Bilateral LE swelling, no LE tenderness, no conspicuous deformities noted NEUROLOGIC : Coherent, no facial asymmetry, gait and stance not assessed Principal Diagnosis Recurrent syncopal status post loop recorder implantation Discharge Exam GENERAL: Awake, comfortable, morbidly obese. SKIN: Pallor, warm NECK : Supple, short neck, no tenderness CHEST : Bilateral clear breath sound. No wheeze/crackles. HEART : RRR, no obvious murmurs ABDOMEN: distention, no tenderness EXTREMITIES : Bilateral LE swelling, no LE tenderness, no conspicuous deformities noted NEUROLOGIC : Coherent, no facial asymmetry, gait and stance not assessed Discharge Data Allergies Allergy/AdvReac Type Severity Reaction Status Date / Time cefepime Allergy Intermediate rash Verified 05/03/23 18:59 daptomycin Allergy Intermediate rash Verified 05/03/23 18:59 fentanyl Allergy Intermediate RASH/HIVES/SKIN Verified 05/03/23 18:59 REDNESS acetaminophen [From Tylenol] AdvReac Intermediate IRRITATES Verified 05/03/23 18:59 & UPSET STOMACH ibuprofen AdvReac Intermediate Nausea Verified 05/03/23 18:59 naloxone AdvReac Intermediate extremely Verified 05/03/23 18:59 sick valproic acid AdvReac Intermediate PANCREATITS Verified 05/03/23 18:59 Consultations 05/03/23 22:10 ED Decision to Admit Stat 05/04/23 12:07 Consult Cardiology Routine Procedures Performed Operation Date: 05/06/23 14:00 Actual Procedures p Implant Cardiac Event Recorder - Josefina Chavez DO Ordered Studies 05/03/23 20:54 CT chest diagnostic wo con Stat CT head/brain wo con Stat 05/04/23 19:49 CT cervical spine wo con Stat CT face [CT facial bones wo con] Stat CT head/brain wo con Stat Hospital Course (1) Hypokalemia: Patient is a 52-year-old male with past medical history of chronic diastolic heart failure (EF 55 to 60%, TTE 2022), history CAD/STEMI as per records, history subdural hematoma/subarachnoid hemorrhage as per records (no operative intervention), hypertension, hyperlipidemia, COPD, recurrent PE on Coumadin, DM 2 insulin requiring, recurrent UTIs secondary to BPH/chronic urinary retention indwelling Lloyd catheter, chronic anemia (baseline hemoglobin 11-13), chronic pain on buprenorphine, presented to the ED with multiple falls. He was admitted to telemetry floor for further management. Patient had episode of fall on 05/04 during a bowel movement; reports "passing out for 1 or 2 seconds". No event noted on telemetry. Patient underwent CT head, face CT and cervical spine CT which were unremarkable. Cardiology was consulted for comanagement. Patient underwent loop recorder placement on May 05, 2023 given his recurrent syncopal episodes. Cardiology recommended patient to be started on torsemide 50 mg once a day; Lasix discontinued Nocturnal overnight oximetry was performed; no desaturation noted on 4 L of oxygen. Lloyd catheter changed on 05/06 On the day of the discharge, patient was alert oriented x3; afebrile and normotensive. He was instructed to follow-up with PCP and cardiology for device check. Please note the above document was generated using voice recognition software. It may contain grammatical, syntax or spelling errors. Any formal questions or concerns about the content, text or information contained within the body of this dictation should be directly addressed to the provider for clarification Total Time Total Time Spent Total Time Spent (In Minutes): 45 Total Time Includes: Examination of the Patient, Discharge Planning, Medication Reconciliation, Communication With Other Providers and Other Discharge Plan Discharge Items Patient Disposition: Home - Self-Care Reason For Visit: HYPOKALEMIA Discharge Diagnosis: Recurrent syncope status post implantable loop recorder placement. Condition on Discharge: Fair Activity: Resume your previous activity Non-emergency contact: Primary Care Provider Call non-emergency contact if: you have any medication questions Follow-up/Referrals: Roberto Askew MD [Primary Care Provider] - (Date & Time 05/12/2023 5:20 PM Provider Roberto Askew MD Department General Internal Medicine [facility] ) Josefina Chavez DO [Physician] - (The Cardiology office will contact you with an appointment for follow up.) Diet: Regular Addtl Attending Provider Instructions: You were admitted to the hospital due to recurrent syncopal episode. You underwent implantable loop recorder by cardiology on May 06. You will receive a call from them regarding the appointment. You were also found to have low potassium level. Cardiology recommended to stop Lasix. You are restarted on torsemide 50 mg once a day. New prescription has been sent to your pharmacy. Please follow-up with your primary care doctor. You will benefit from outpatient sleep study. Pending Studies at Discharge: No Stand-Alone Forms: My [email or web address] Application, Smoking Cessation Medications and DC Order Prescriptions: New torsemide 100 mg Tablet 50 mg PO QAM 30 Days Qty: 15 0RF Continued promethazine 12.5 mg tablet 12.5 mg PO BID PRN (Reason: nausea and vomiting) Qty: 10 0RF tamsulosin [Flomax] 0.4 mg capsule 0.8 mg PO QAM Qty: 180 3RF polyethylene glycol 3350 [Miralax] 17 gram powder in packet 17 g PO QAM nitroglycerin [Nitrostat] 0.4 mg tablet, sublingual 0.4 mg Sublingual DIRECTED PRN (Reason: CHEST PAIN) Rx Instructions: PLACE ONE TABLET UNDER THE TONGUE EVERY 5 MINUTES FOR UP TO 3 DOSES OVER 15 MINUTES IF NEEDED FOR CHEST PAIN nystatin 100,000 unit/gram Powder 1 applic TOPICAL TID PRN (Reason: Skin Irritation) Rx Instructions: APPLY DIRECTED TO ABDOMINAL FOLDS cyclobenzaprine 10 mg Tablet 10 mg PO BID PRN (Reason: Muscle Spasm) docusate sodium 100 mg Capsule 100 mg PO BID duloxetine 60 mg capsule,delayed release(DR/EC) 60 mg PO DAILY famotidine 20 mg tablet 20 mg PO DAILY fluticasone propionate 50 mcg/actuation spray,suspension 2 spray Intranasal DAILY aspirin [Ecotrin Low Strength] 81 mg tablet,delayed release (DR/EC) 81 mg PO QAM finasteride 5 mg tablet 5 mg PO QAM metoprolol succinate 50 mg Tablet Extended Release 24 Hr 75 mg PO BID spironolactone 25 mg Tablet 25 mg PO QAM atorvastatin 80 mg tablet 80 mg PO QPM Rx Instructions: TAKE THIS MEDICATION EVERY AFTERNOON sennosides [senna] 8.6 mg Tablet 8.6 mg PO DAILY PRN (Reason: Constipation) folic acid 1 mg Tablet 1 mg PO QAM albuterol sulfate 90 mcg/actuation Hfa Aerosol Inhaler 2 puff INHALATION Q4 PRN (Reason: Dyspnea) omeprazole 20 mg Capsule,Delayed Release(Dr/Ec) 20 mg PO DAILYBB gabapentin 800 mg tablet 800 mg PO TID buprenorphine HCl 8 mg tablet, sublingual 20 mg SUBLINGUAL DAILY Rx Instructions: 2 and half tab daily glipizide 10 mg tablet 10 mg PO BID urea [Ureacin-20] 20 % Cream 1 applic TOPICAL BID magnesium oxide 400 mg (241.3 mg magnesium) tablet 400 mg PO DAILY ferrous sulfate 325 mg (65 mg iron) Tablet 325 mg PO QAM Rx Instructions: Take with breakfast hydroxyzine HCl 25 mg Tablet 25 mg PO QID PRN (Reason: Anxiety) ondansetron HCl 4 mg Tablet 4 mg PO Q8H PRN (Reason: NAUSEA/VOMITING) benzonatate 100 mg Capsule 100 mg PO TID PRN (Reason: cough) Qty: 10 0RF diclofenac sodium [Voltaren Arthritis Pain] 1 % Gel 2 g EXT BID Qty: 50 0RF dextromethorphan-guaifenesin 10-100 mg/5 mL Syrup 5 ml PO Q6H PRN (Reason: cough) Qty: 500 0RF cholecalciferol (vitamin D3) 125 mcg (5,000 unit) Tablet 5,000 unit PO QAM Qty: 30 0RF Lactinex 1 million cell tablet,chewable 1 tab PO TID Qty: 30 0RF isosorbide dinitrate 30 mg tablet 30 mg PO DAILY guaifenesin [Mucinex] 600 mg Tablet Extended Release 12hr 1,200 mg PO BID lorazepam 0.5 mg tablet 0.5 mg PO Q8 PRN (Reason: Anxiety) Qty: 6 0RF nicotine [Nicoderm CQ] 21 mg/24 hr Patch 24 Hour 21 mg transdermal DAILY Qty: 28 0RF potassium chloride 20 mEq tablet extended release 40 meq PO BID insulin aspart U-100 [Novolog FlexPen U-100 Insulin] 100 unit/mL (3 mL) insulin pen 10 unit subcut TIDM Rx Instructions: take before meal insulin glargine [Lantus U-100 Insulin] 100 unit/mL solution 50 unit SC HS Breztri Aerosphere 160-9-4.8 mcg/actuation HFA aerosol inhaler 2 inh inhalation BID Qty: 10.7 0RF ipratropium-albuterol 0.5 mg-3 mg(2.5 mg base)/3 mL Solution For Nebulization 3 ml NEB QIDR PRN (Reason: shortness of breath) 30 Days Qty: 120 0RF formoterol fumarate [Perforomist] 20 mcg/2 mL Solution For Nebulization 20 mcg NEB BIDR 30 Days Qty: 60 0RF budesonide 0.5 mg/2 mL Suspension For Nebulization 0.5 mg NEB BIDR 30 Days Qty: 60 0RF warfarin 5 mg tablet 2.5 mg PO DAILY Qty: 14 0RF buprenorphine HCl 8 mg tablet, sublingual 8 mg SUBLINGUAL DAILY buprenorphine HCl 8 mg tablet, sublingual 4 mg SUBLINGUAL DAILY Rx Instructions: pt takes in early afternoon at 1400 buprenorphine HCl 8 mg tablet, sublingual 8 mg SUBLINGUAL HS Rx Instructions: Pt takes 20mg total a day: 8mg in AM, 4mg at 1400 and 8mg with evening medications Discontinued furosemide [Lasix] 40 mg tablet 40 mg PO BID Discharge Orders: Discharge Order (Routine); Ordered 05/08/23 Ordered By: Armando Rojas Admission Data Admit Date/Time: 05/04/23 00:48 Attending Provider: Armando Rojas Admit Provider: Waldemar Galarza Primary Care Provider: Roberto Askew Other Providers: Waldemar Galarza ; Dipesh Wright Other Interventions: Discharge Summary Assessment (RN) Last Done: 05/08/23 08:47
--- NOTE | 2023-05-09 13:26 | Coding Query ---
CODING QUERY To promote full compliance with coding requirements relating to patient care, provider participation is requested in all cases of hcc coders uncertainty. Please assist us with the question(s) below: Coding Question(s): Pt admiitted with syncope and profound hypokalemia. Prior repeat hx of UTI. - positive Urine culture greater than 50,000 colonies .. Please check below the phrase that describes UTI. Thanks for your help! MARTHA Hernandez [facility] Physician's Response(s): Pt had a UTI, Present on Admission __X___ Pt did not have a UTI Other: please document: Principal Diagnosis: "that condition established after study, to be chiefly responsible for occasioning the admission of the patient to the hospital for care." Co-Existing Principal Diagnosis: "when two or more diagnoses equally meet the criteria for principal diagnosis as determined by the circumstances of admission, diagnostic work up, and/or therapy provided, and the Alphabetic Index, Tabular List, or another coding guideline does not provide sequencing direction, any one of the diagnoses may be sequenced first." "When the physician has documented what appears to be a current diagnosis in the body of the record, but has not included the diagnosis in the final diagnostic statement, the physician should be asked whether the diagnosis should be added." (Source Coding Clinic 2 QTR90. p3-4) [place]
== END 2023-05-08 10:06 | disposition home or self-care (01) ==
LOC: ED 18:30 → EDINP 05-04 00:48 → SUATTDRO 05-04 00:48 → INTOOBSV 05-04 00:48 → EDINP 05-04 01:16 → 2W 05-04 15:11

== ENCOUNTER 2023-05-22 11:00 | Inpatient (IN) ==
[2023-05-22] MEDS ORDERED: ALBUT/IPRATROP 3MG/0.5MG NEB 3 ML VIAL NEB STA (11:11)
--- NOTE | 2023-05-22 11:14 | Emergency Department Note ---
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 Hct (42.0-52.0) % MCV (80.0-100.0) fL MCH (25.0-34.0) pg MCHC (32.0-36.0) g/dL RDW Std Deviation (36.4-46.3) fL RDW Coeff of Megan (11.5-14.5) % Plt Count (130-400) K/uL MPV (9.4-12.4) fL Immature Gran % (Auto) % Neut % (Auto) % Lymph % (Auto) % Stokes % (Auto) % Eos % (Auto) % Baso % (Auto) % Neut # (Auto) (1.40-6.50) K/uL Lymph # (Auto) (1.20-3.40) K/uL Stokes # (Auto) (0.11-0.59) K/uL Eos # (Auto) (0.00-0.50) K/uL Baso # (Auto) (0.00-0.20) K/uL Immature Gran # (Auto) (0.01-0.20) K/uL PT (9.0-12.0) Seconds INR (0.9-1.1) VBG pH (7.36-7.41) VBG pCO2 (38-50) mmHg VBG pO2 mmHg VBG HCO3 mmol/L VBG O2 Saturation % VBG Base Excess mEq/L Sodium (136-145) mmol/L Potassium (3.5-5.1) mmol/L Chloride (98-107) mmol/L Carbon Dioxide (21-32) mmol/L Anion Gap (3-11) BUN (6-23) mg/dl Creatinine (0.6-1.4) mg/dl Est Cr Clr Drug Dosing Est GFR ( Amer) ml/min Est GFR (Non-Af Amer) ml/min BUN/Creatinine Ratio (10-20) Glucose (70-99(Fasting)) mg/dl Calcium (8.6-10.3) mg/dl Magnesium (1.7-2.4) mg/dl Total Bilirubin (0.2-1.0) mg/dl AST (13-39) U/L ALT (7-52) U/L Alkaline Phosphatase (34-104) U/L Troponin I High Sens 4.1 5.0 (0-20) pg/ml B-Natriuretic Peptide (0-100) pg/ml Total Protein (6.0-8.3) gm/dl Albumin (3.4-5.0) gm/dl Globulin (2.5-4.0) gm/dl Albumin/Globulin Ratio (0.9-2) Adenovirus (PCR) (NotDetected) B. pertussis DNA (PCR) (NotDetected) B.parapertussis DNA PCR (NotDetected) C. pneumoniae DNA (PCR) (NotDetected) Coronavirus OC43 (PCR) (NotDetected) Coronavirus HKU1 (PCR) (NotDetected) Coronavirus 229E (PCR) (NotDetected) SARS-CoV-2 (PCR) (NotDetected) Coronavirus NL63 (PCR) (NotDetected) Human Metapneumovir PCR (NotDetected) Influenza Type A (PCR) (NotDetected) Influenza Type B (PCR) (NotDetected) M. pneumoniae (PCR) (NotDetected) Parainfluenza 1 (PCR) (NotDetected) Parainfluenza 2 (PCR) (NotDetected) Parainfluenza 3 (PCR) (NotDetected) Parainfluenza 4 (PCR) (NotDetected) RSV (PCR) (NotDetected) Entero/Rhino (PCR) (NotDetected) Administered Medications Discontinued Medications Albuterol (Albut/Ipratrop 3mg/0.5mg Neb 3 Ml Vial) 3 ml NEB NOW STA; Protocol Stop: 05/22/23 11:12 Last Admin: 05/22/23 12:27 Dose: 3 ml Documented By: Imaging Data Radiologist's Impression: Chest X-Ray 05/22/23 11:05 XR chest 1V portable CLINICAL HISTORY: Dyspnea TECHNIQUE: Single frontal radiograph of the chest was obtained. Comparison: Comparison is made to chest radiograph 05/03/2023 FINDINGS: Exam is limited by underpenetration. The cardiomediastinal silhouette is normal. The lungs are clear. No evidence of pleural effusion or pneumothorax. IMPRESSION: No acute abnormalities and in particular no radiographic evidence of pneumonia. ACT 112: Negative or not required by law. Electronically signed by: Armand Tobar M.D. 05/22/2023 11:19 AM Discharge Plan Visit Data Chief Complaint: Shortness of Breath/Dyspnea Stated Complaint: SOB, COUGH ED Provider: Donna Watkins Discharge Problem: Chest pain, Shortness of breath Forms Stand Alone Forms: [facility] Prescriptions Prescriptions: No Action promethazine 12.5 mg tablet 12.5 mg PO BID PRN (Reason: nausea and vomiting) Qty: 10 0RF tamsulosin [Flomax] 0.4 mg capsule 0.8 mg PO QAM Qty: 180 3RF polyethylene glycol 3350 [Miralax] 17 gram powder in packet 17 g PO QAM nitroglycerin [Nitrostat] 0.4 mg tablet, sublingual 0.4 mg Sublingual DIRECTED PRN (Reason: CHEST PAIN) Rx Instructions: PLACE ONE TABLET UNDER THE TONGUE EVERY 5 MINUTES FOR UP TO 3 DOSES OVER 15 MINUTES IF NEEDED FOR CHEST PAIN nystatin 100,000 unit/gram Powder 1 applic TOPICAL TID PRN (Reason: Skin Irritation) Rx Instructions: APPLY DIRECTED TO ABDOMINAL FOLDS cyclobenzaprine 10 mg Tablet 10 mg PO BID PRN (Reason: Muscle Spasm) docusate sodium 100 mg Capsule 100 mg PO BID duloxetine 60 mg capsule,delayed release(DR/EC) 60 mg PO DAILY famotidine 20 mg tablet 20 mg PO DAILY fluticasone propionate 50 mcg/actuation spray,suspension 2 spray Intranasal DAILY aspirin [Ecotrin Low Strength] 81 mg tablet,delayed release (DR/EC) 81 mg PO QAM finasteride 5 mg tablet 5 mg PO QAM metoprolol succinate 50 mg Tablet Extended Release 24 Hr 75 mg PO BID spironolactone 25 mg Tablet 25 mg PO QAM atorvastatin 80 mg tablet 80 mg PO QPM Rx Instructions: TAKE THIS MEDICATION EVERY AFTERNOON sennosides [senna] 8.6 mg Tablet 8.6 mg PO DAILY PRN (Reason: Constipation) folic acid 1 mg Tablet 1 mg PO QAM albuterol sulfate 90 mcg/actuation Hfa Aerosol Inhaler 2 puff INHALATION Q4 PRN (Reason: Dyspnea) omeprazole 20 mg Capsule,Delayed Release(Dr/Ec) 20 mg PO DAILYBB gabapentin 800 mg tablet 800 mg PO TID buprenorphine HCl 8 mg tablet, sublingual 20 mg SUBLINGUAL DAILY Rx Instructions: 2 and half tab daily glipizide 10 mg tablet 10 mg PO BID urea [Ureacin-20] 20 % Cream 1 applic TOPICAL BID magnesium oxide 400 mg (241.3 mg magnesium) tablet 400 mg PO DAILY ferrous sulfate 325 mg (65 mg iron) Tablet 325 mg PO QAM Rx Instructions: Take with breakfast hydroxyzine HCl 25 mg Tablet 25 mg PO QID PRN (Reason: Anxiety) ondansetron HCl 4 mg Tablet 4 mg PO Q8H PRN (Reason: NAUSEA/VOMITING) benzonatate 100 mg Capsule 100 mg PO TID PRN (Reason: cough) Qty: 10 0RF diclofenac sodium [Voltaren Arthritis Pain] 1 % Gel 2 g EXT BID Qty: 50 0RF dextromethorphan-guaifenesin 10-100 mg/5 mL Syrup 5 ml PO Q6H PRN (Reason: cough) Qty: 500 0RF cholecalciferol (vitamin D3) 125 mcg (5,000 unit) Tablet 5,000 unit PO QAM Qty: 30 0RF Lactinex 1 million cell tablet,chewable 1 tab PO TID Qty: 30 0RF isosorbide dinitrate 30 mg tablet 30 mg PO DAILY guaifenesin [Mucinex] 600 mg Tablet Extended Release 12hr 1,200 mg PO BID lorazepam 0.5 mg tablet 0.5 mg PO Q8 PRN (Reason: Anxiety) Qty: 6 0RF nicotine [Nicoderm CQ] 21 mg/24 hr Patch 24 Hour 21 mg transdermal DAILY Qty: 28 0RF potassium chloride 20 mEq tablet extended release 40 meq PO BID insulin aspart U-100 [Novolog FlexPen U-100 Insulin] 100 unit/mL (3 mL) insulin pen 10 unit subcut TIDM Rx Instructions: take before meal insulin glargine [Lantus U-100 Insulin] 100 unit/mL solution 50 unit SC HS Breztri Aerosphere 160-9-4.8 mcg/actuation HFA aerosol inhaler 2 inh inhalation BID Qty: 10.7 0RF warfarin 5 mg tablet 2.5 mg PO DAILY Qty: 14 0RF buprenorphine HCl 8 mg tablet, sublingual 8 mg SUBLINGUAL DAILY buprenorphine HCl 8 mg tablet, sublingual 4 mg SUBLINGUAL DAILY Rx Instructions: pt takes in early afternoon at 1400 buprenorphine HCl 8 mg tablet, sublingual 8 mg SUBLINGUAL HS Rx Instructions: Pt takes 20mg total a day: 8mg in AM, 4mg at 1400 and 8mg with evening medications torsemide 100 mg Tablet 50 mg PO QAM 30 Days Qty: 15 0RF Referrals Referrals: Roberto Askew MD [Primary Care Provider] -
--- NOTE | 2023-05-22 11:21 | XRay Report ---
XR chest 1V portable CLINICAL HISTORY: Dyspnea TECHNIQUE: Single frontal radiograph of the chest was obtained. Comparison: Comparison is made to chest radiograph 05/03/2023 FINDINGS: Exam is limited by underpenetration. The cardiomediastinal silhouette is normal. The lungs are clear. No evidence of pleural effusion or pneumothorax. IMPRESSION: No acute abnormalities and in particular no radiographic evidence of pneumonia. ACT 112: Negative or not required by law. Electronically signed by: Armand Tobar M.D. 05/22/2023 11:19 AM
[2023-05-22 12:21] LABS: Base Excess VBG 16.9 mEq/L; HCO3 VBG 46 mmol/L; Oxygen Saturation VBG < 60.0 %; PCO2 VBG 76 mmHg (38-50); PO2 VBG 41 mmHg; pH VBG 7.39 (7.36-7.41)
[2023-05-22 12:28] LABS: Basophils # (auto) 0.06 K/uL (0.00-0.20); Basophils % (auto) 0.6 %; Eosinophils # (auto) 0.37 K/uL (0.00-0.50); Eosinophils % (auto) 3.8 %; Hematocrit (blood only) 40.8 % (42.0-52.0); Hemoglobin 12.6 g/dl (14.0-18.0); Immature Granulocytes # (auto) 0.03 K/uL (0.01-0.20); Immature Granulocytes % (auto) 0.3 %; Lymphocytes # (auto) 1.76 K/uL (1.20-3.40); Lymphocytes % (auto) 18.2 %; Mean Corpuscular Hemoglobin 24.8 pg (25.0-34.0); Mean Corpuscular Hgb Conc 30.9 g/dL (32.0-36.0); Mean Corpuscular Volume 80.3 fL (80.0-100.0); Mean Platelet Volume 10.6 fL (9.4-12.4); Monocytes # (auto) 0.76 K/uL (0.11-0.59); Monocytes % (auto) 7.9 %; Neutrophils # (auto) 6.67 K/uL (1.40-6.50); Neutrophils % (auto) 69.2 %; Platelet Count 299 K/uL (130-400); RDW Coefficient of Variation 19.9 % (11.5-14.5); RDW Standard Deviation 56.3 fL (36.4-46.3); Red Blood Count 5.08 M/uL (4.70-6.10); White Blood Count 9.65 K/ul (4.8-10.8)
[2023-05-22 12:47] LABS: Adenovirus PCR Not Detected (NotDetected); Bordetella parapertussis PCR Not Detected (NotDetected); Bordetella pertussis PCR Not Detected (NotDetected); Chlamydia pneumoniae PCR Not Detected (NotDetected); Coronavirus 229E PCR Not Detected (NotDetected); Coronavirus CoV-2 (COVID19)PCR Not Detected (NotDetected); Coronavirus HKU1 PCR Not Detected (NotDetected); Coronavirus NL63 PCR Not Detected (NotDetected); Coronavirus OC43PCR Not Detected (NotDetected); Human Metapneumovirus PCR Not Detected (NotDetected); Influenza A PCR Not Detected (NotDetected); Influenza B PCR Not Detected (NotDetected); Mycoplasma pneumoniae PCR Not Detected (NotDetected); Parainfluenza Virus 1 PCR Not Detected (NotDetected); Parainfluenza Virus 2 PCR Not Detected (NotDetected); Parainfluenza Virus 3 PCR Not Detected (NotDetected); Parainfluenza Virus 4 PCR Not Detected (NotDetected); Respiratory Syncytial VirusPCR Not Detected (NotDetected); Rhinovirus/Enterovirus PCR Not Detected (NotDetected)
[2023-05-22 12:49] LABS: Alanine Aminotransferase 13 U/L (7-52); Albumin Globulin Ratio 1.2 (0.9-2); Albumin Level 3.5 gm/dl (3.4-5.0); Alkaline Phosphatase 113 U/L (34-104); Anion Gap 4 (3-11); Aspartate Aminotransferase 16 U/L (13-39); BUN Creatinine Ratio 11.9 (10-20); Bilirubin,Total 0.6 mg/dl (0.2-1.0); Blood Urea Nitrogen 10 mg/dl (6-23); Calcium 9.3 mg/dl (8.6-10.3); Carbon Dioxide 38 mmol/L (21-32); Chloride 94 mmol/L (98-107); Est GFR (African American) 116.7 ml/min; Est GFR (Non-African American) 100.7 ml/min; Globulin 2.9 gm/dl (2.5-4.0); Glucose 204 mg/dl (70-99(Fasting)); Magnesium 1.6 mg/dl (1.7-2.4); Potassium 3.5 mmol/L (3.5-5.1); Sodium 136 mmol/L (136-145); Total Protein 6.4 gm/dl (6.0-8.3)
[2023-05-22 12:55] LABS: Troponin I High Sensitivity 4.1 pg/ml (0-20)
[2023-05-22 13:05] LABS: Prothrombin Time 20.9 Seconds (9.0-12.0)
[2023-05-22] MEDS ORDERED: ACETAMINOPHEN 325 MG TAB PO PRN (17:04)
[2023-05-22] MEDS ORDERED: ALUMINUM/MAGNESIUM SUSP 30 ML UDC PO PRN (17:04)
[2023-05-22] MEDS ORDERED: POLYETHYLENE (MIRALAX) 17 GM PACK PO PRN (17:04)
[2023-05-22] MEDS ORDERED: MAGNESIUM HYDROXIDE SUSP 30 ML UDC PO PRN (17:04)
[2023-05-22] MEDS ORDERED: MAGNESIUM SULFATE / D5W 1 GM/100 ML BAG IV ONE (17:06)
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
[2023-05-22] MEDS ORDERED: NITROGLYCERIN SL 0.4 MG/TAB TAB SL PRN (19:35)
[2023-05-22] MEDS ORDERED: NON-FORMULARY MEDICATION (Budesonide-Glycopyr-Formoterol [Breztri Aerosphere] 160-9-4.8 mc INH SCH (21:00)
[2023-05-22] MEDS ORDERED: GLUCAGON FOR INJ 1 MG VIAL SQ PRN (21:06)
[2023-05-22] MEDS ORDERED: LANTUS PER UNIT CHARGE SQ SCH (21:06)
[2023-05-22] MEDS ORDERED: PHARMACY GLYCEMIC MGMT CONSULT PRN (21:06)
[2023-05-22] MEDS ORDERED: CARBOHYDRATES FOR HYPOGLYCEMIA PO PRN (21:06)
[2023-05-22] MEDS ORDERED: DEXTROSE 50% 50 ML SYRINGE IV PRN (21:06)
[2023-05-22] MEDS ORDERED: GLUCOSE 10 TAB/TUBE PO PRN (21:06)
[2023-05-22] MEDS ORDERED: GLUCOSE 40% GEL 15 GM TUBE PO PRN (21:06)
[2023-05-22] MEDS: buprenorphine HCL 8 MG SUBL SL SCH (21:47)
[2023-05-22] MEDS: NICOTINE 21 MG/24 HR TDSY TD SCH (22:40)
[2023-05-22] MEDS: ATORVASTATIN 40 MG TAB PO SCH (22:41)
[2023-05-22] MEDS: DOCUSATE SODIUM 100 MG CAP PO SCH (22:42)
[2023-05-22] MEDS: GABAPENTIN 800 MG TAB PO SCH (22:42)
[2023-05-22] MEDS: METOPROLOL SUCC 25MG EXT REL TAB PO SCH (22:43)
[2023-05-22] MEDS: POTASSIUM CHLORIDE CRTAB 20 MEQ TABCR PO SCH (22:44)
[2023-05-22] MEDS: INSULIN ASPART PER UNIT CHARGE SC SCH (22:45)
[2023-05-22 23:37] LABS: Appearance Urine Clear (Clear); Bilirubin Urine Negative (Negative); Blood Urine 2+ (Negative); Color Urine Yellow; Glucose Urine UA Negative (Negative); Ketones Urine Negative (Negative); Leukocyte Esterase Urine 3+ (Negative); Nitrite Urine Negative (Negative); Protein Urine Negative (Negative); Specific Gravity Urine 1.005 (1.000-1.030); Urobilinogen Urine Negative (Negative)
[2023-05-22 23:54] LABS: Bacteria Urine Automated 3+ (Negative); Cast Urine Automated 0 /lpf (0-5); Epithelial Cell Urine Auto 0-5 /lpf (0-5)
[2023-05-22 23:55] LABS: Renal Epithelial Cells Urine 0-5 /lpf (0-5)
[2023-05-23] MEDS ORDERED: INSULIN ASPART PER UNIT CHARGE SC SCH (02:00)
[2023-05-23] MEDS: PANTOprazole 40 MG TAB PO SCH (05:56)
[2023-05-23 06:57] LABS: Hematocrit (blood only) 43.4 % (42.0-52.0); Hemoglobin 13.2 g/dl (14.0-18.0); Mean Corpuscular Hemoglobin 24.8 pg (25.0-34.0); Mean Corpuscular Hgb Conc 30.4 g/dL (32.0-36.0); Mean Corpuscular Volume 81.4 fL (80.0-100.0); Mean Platelet Volume 10.7 fL (9.4-12.4); Platelet Count 333 K/uL (130-400); RDW Coefficient of Variation 20.1 % (11.5-14.5); RDW Standard Deviation 56.8 fL (36.4-46.3); Red Blood Count 5.33 M/uL (4.70-6.10); White Blood Count 11.73 K/ul (4.8-10.8)
[2023-05-23 07:32] LABS: INR 1.6 (0.9-1.1)
[2023-05-23 08:21] LABS: Albumin Globulin Ratio 1.1 (0.9-2); Albumin Level 3.8 gm/dl (3.4-5.0); BUN Creatinine Ratio 9.7 (10-20); Bilirubin,Total 0.8 mg/dl (0.2-1.0); Calcium 9.6 mg/dl (8.6-10.3); Creatinine Clr Calc Pharmacy 219.8 ml/min; Est GFR (African American) 124.3 ml/min; Est GFR (Non-African American) 107.3 ml/min; Globulin 3.6 gm/dl (2.5-4.0); Magnesium 1.9 mg/dl (1.7-2.4); Phosphorus 2.8 mg/dl (2.5-4.9); Potassium 3.3 mmol/L (3.5-5.1); Total Protein 7.4 gm/dl (6.0-8.3)
[2023-05-23] MEDS: FLUTICASONE FUROATE 200MCG 14 PUFFS/INHALER INH SCH (08:48)
[2023-05-23] MEDS: FLUTICASONE PROPIONATE NA SPR 16 GM BTL SCH (08:49)
[2023-05-23] MEDS: NICOTINE 21 MG/24 HR TDSY TD SCH (08:49)
[2023-05-23] MEDS: UMECLIDINIUM/VILANTEROL 62.5/25MCG 7 PUFFS/INHALER INH SCH (08:49)
[2023-05-23] MEDS: ISOSORBIDE DINITRATE 10 MG TAB PO SCH (08:50)
[2023-05-23] MEDS: TAMSULOSIN HCL 0.4 MG CAP PO SCH (08:50)
[2023-05-23] MEDS: TORSEMIDE 100 MG TAB PO SCH (08:50)
[2023-05-23] MEDS: FAMOTIDINE 20 MG TAB PO SCH (08:51)
[2023-05-23] MEDS: ASPIRIN 81 MG ECTAB PO SCH (08:51)
[2023-05-23] MEDS: SPIRONOLACTONE 25 MG TAB PO SCH (08:51)
[2023-05-23] MEDS: FERROUS SULFATE 325 MG TAB PO SCH (08:51)
[2023-05-23] MEDS: FINASTERIDE 5 MG TAB PO SCH (08:52)
[2023-05-23] MEDS: DULoxetine HCL 60 MG CAP PO SCH (08:52)
[2023-05-23] MEDS: POTASSIUM CHLORIDE CRTAB 20 MEQ TABCR PO SCH ×2 (08:52→22:14)
[2023-05-23] MEDS: METOPROLOL SUCC 25MG EXT REL TAB PO SCH ×2 (08:53→22:14)
[2023-05-23] MEDS: DOCUSATE SODIUM 100 MG CAP PO SCH ×2 (08:53→22:14)
[2023-05-23] MEDS: GABAPENTIN 800 MG TAB PO SCH ×3 (08:53→22:13)
[2023-05-23] MEDS ORDERED: buprenorphine HCL 2 MG SUBL SL SCH (09:00)
[2023-05-23] MEDS ORDERED: LANTUS PER UNIT CHARGE SQ SCH (09:00)
[2023-05-23] MEDS: INSULIN ASPART PER UNIT CHARGE SC SCH ×4 (09:18→22:16)
[2023-05-23] MEDS: buprenorphine HCL 8 MG SUBL SL SCH ×3 (09:19→22:15)
[2023-05-23] MEDS: ONDANSETRON INJ 2 MG/ML 2 ML VIAL IV PRN (09:44)
--- NOTE | 2023-05-23 09:56 | Hospitalist Progress Note ---
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 Multiple admission for similar complaints. This will be 6th admission within the past 5 months CXR negative for acute cardiopulmonary process. P Labs notable for WBC of 9.65, Mg 1.6, K+ 3.5, Troponin negative, BNP normal. VBG pH 739, Co2 76, HCO3 46. Has rhonchi on exam this morning Possible COPD exacerbation Acute on chronic respiratory failure with hypoxia and hypercapnea Nebs, Prednisone Wean oxygen as tolerated Monitor I/O Counseled extensively about smoking cessation. He does not seem motivated to quit Stated he is supposed to get sleep study but he is not able to fit in his car to drive to appointments. When I asked about having transport arranged, he stated he cannot afford those. I asked if any family can take him. He stated he can talk to his daughter who may be able to but that she works a lot. I informed him that we can look into resources to help with transport if he wants/daughter cannot. Hypomagnesia: Mag was 1.6 on admission Repleted Chronic diastolic heart failure Hypokalemia today. Continue home spironolactone, torsemide and potassium Continue ASA, atorvastatin, isordil Chronic Anticoagulation: History of PE: Per Anticoag Clinic note on 05/18/23, Coumadin 2.5mg on Sun Tues and Thurs, 5 mg all other days INR 2.0 on admission INR is 1.6 today. Will give 5mg today and continue home dose Monitor INR Type 2 diabetes with insulin deficiency with peripheral neuropathy: Takes Lantus 100 Units QHS and Glipizide Hold home regimen Glycemic pharm on board Place on ACHS FSBS SSI Takes Gabapentin; continue HLD: Stable chronic Takes Atorvastatin; continue Behavioral health liason and patient services were consulted for depression and complex home needs respectively Patient declined behavioral health liason consult Per psych He denied SI/HI PCP:Dr. Askew CODE STATUS: Full code VTE prophylaxis: On Coumadin I spent a total of 50 minutes coordinating, documenting and providing care for this patient excluding time spent in performance of separately billed services Admission and Anticipated Discharge Date Admission Date: May 22, 2023 Subjective Patient seen and examined Reports dry cough, SOB, wheezing associated with chest pressure Patient still smokes about 1 ppd Reports he uses oxygen at bedtime Denied any headache, fever, chills, nausea, abd pain, diarrhea Physical Exam Constitutional: + well hydrated and + obese; no acute distress Eyes: PERRL, conjunctivae normal, anicteric sclerae ENMT: external ear and nose normal, oropharynx normal Respiratory: Not in respiratory distress, +generalized rhonchi, on nasal cannula Cardiovascular: Rate/Rhythm: regular rate and regular rhythm S1 S2 Gastrointestinal (Abdomen): normal bowel sounds, soft, nontender, no hepatosplenomegaly Musculoskeletal: chronic pedal edema Neurologic: PERRL, EOMI, accommodation nl, no face palsy, no dysarthria Psychiatric: A+Ox3, euthymic affect Genitourinary: Chronic fontaine Results & Data Results & Data Vital Signs (Past 12 Hours) Vital Signs Temp Pulse Pulse Resp BP Pulse Ox O2 Del Method 05/23/23 07:57 36.9 C 73 20 124/61 100 Nasal Cannula 05/23/23 07:15 70 05/23/23 04:22 Nasal Cannula 05/23/23 04:22 36.9 C 82 18 136/64 97 Nasal Cannula 05/22/23 22:34 88 05/23/23 03:08 36.7 C 66 18 114/72 97 Room Air 05/22/23 23:12 36.9 C 76 18 131/76 99 Nasal Cannula O2 Flow Rate 05/23/23 07:57 5 05/23/23 07:15 05/23/23 04:22 5 05/23/23 04:22 5 05/22/23 22:34 05/23/23 03:08 05/22/23 23:12 5 Laboratory Results Abnormal lab results 05/22/23 05/22/23 05/22/23 Range/Units 12:01 12:01 12:01 WBC (4.8-10.8) K/ul Hgb 12.6 L (14.0-18.0) g/dl Hct 40.8 L (42.0-52.0) % MCH 24.8 L (25.0-34.0) pg MCHC 30.9 L (32.0-36.0) g/dL RDW Std Deviation 56.3 H (36.4-46.3) fL RDW Coeff of Megan 19.9 H (11.5-14.5) % Neut # (Auto) 6.67 H (1.40-6.50) K/uL [place] # (Auto) 0.76 H (0.11-0.59) K/uL PT 20.9 H (9.0-12.0) Seconds INR 2.0 H (0.9-1.1) VBG pCO2 (38-50) mmHg Potassium (3.5-5.1) mmol/L Chloride 94 L (98-107) mmol/L Carbon Dioxide 38 H (21-32) mmol/L BUN/Creatinine Ratio (10-20) Glucose 204 H (70-99(Fasting)) mg/dl POC Glucose (70-99) mg/dl Magnesium 1.6 L (1.7-2.4) mg/dl Alkaline Phosphatase 113 H (34-104) U/L Urine Blood (Negative) Ur Leukocyte Esterase (Negative) Urine WBC (Auto) (0-5) /hpf Urine RBC (Auto) (0-4) /hpf Urine Bacteria (Auto) (Negative) Urine Yeast (None Prsent) 05/22/23 05/22/23 05/22/23 Range/Units 12:01 21:09 23:15 WBC (4.8-10.8) K/ul Hgb (14.0-18.0) g/dl Hct (42.0-52.0) % MCH (25.0-34.0) pg MCHC (32.0-36.0) g/dL RDW Std Deviation (36.4-46.3) fL RDW Coeff of Megan (11.5-14.5) % Neut # (Auto) (1.40-6.50) K/uL [place] # (Auto) (0.11-0.59) K/uL PT (9.0-12.0) Seconds INR (0.9-1.1) VBG pCO2 76 H (38-50) mmHg Potassium (3.5-5.1) mmol/L Chloride (98-107) mmol/L Carbon Dioxide (21-32) mmol/L BUN/Creatinine Ratio (10-20) Glucose (70-99(Fasting)) mg/dl POC Glucose 230 H (70-99) mg/dl Magnesium (1.7-2.4) mg/dl Alkaline Phosphatase (34-104) U/L Urine Blood 2+ H (Negative) Ur Leukocyte Esterase 3+ H (Negative) Urine WBC (Auto) 10-30 H (0-5) /hpf Urine RBC (Auto) 5-10 H (0-4) /hpf Urine Bacteria (Auto) 3+ H (Negative) Urine Yeast Budding A (None Prsent) 05/23/23 05/23/23 05/23/23 Range/Units 02:16 06:00 06:00 WBC 11.73 H (4.8-10.8) K/ul Hgb 13.2 L (14.0-18.0) g/dl Hct (42.0-52.0) % MCH 24.8 L (25.0-34.0) pg MCHC 30.4 L (32.0-36.0) g/dL RDW Std Deviation 56.8 H (36.4-46.3) fL RDW Coeff of Megan 20.1 H (11.5-14.5) % Neut # (Auto) (1.40-6.50) K/uL [place] # (Auto) (0.11-0.59) K/uL PT 17.0 H (9.0-12.0) Seconds INR 1.6 H (0.9-1.1) VBG pCO2 (38-50) mmHg Potassium (3.5-5.1) mmol/L Chloride (98-107) mmol/L Carbon Dioxide (21-32) mmol/L BUN/Creatinine Ratio (10-20) Glucose (70-99(Fasting)) mg/dl POC Glucose 147 H (70-99) mg/dl Magnesium (1.7-2.4) mg/dl Alkaline Phosphatase (34-104) U/L Urine Blood (Negative) Ur Leukocyte Esterase (Negative) Urine WBC (Auto) (0-5) /hpf Urine RBC (Auto) (0-4) /hpf Urine Bacteria (Auto) (Negative) Urine Yeast (None Prsent) 05/23/23 05/23/23 Range/Units 06:00 08:31 WBC (4.8-10.8) K/ul Hgb (14.0-18.0) g/dl Hct (42.0-52.0) % MCH (25.0-34.0) pg MCHC (32.0-36.0) g/dL RDW Std Deviation (36.4-46.3) fL RDW Coeff of Megan (11.5-14.5) % Neut # (Auto) (1.40-6.50) K/uL [place] # (Auto) (0.11-0.59) K/uL PT (9.0-12.0) Seconds INR (0.9-1.1) VBG pCO2 (38-50) mmHg Potassium 3.3 L (3.5-5.1) mmol/L Chloride 96 L (98-107) mmol/L Carbon Dioxide 38 H (21-32) mmol/L BUN/Creatinine Ratio 9.7 L (10-20) Glucose 152 H (70-99(Fasting)) mg/dl POC Glucose 176 H (70-99) mg/dl Magnesium (1.7-2.4) mg/dl Alkaline Phosphatase 121 H (34-104) U/L Urine Blood (Negative) Ur Leukocyte Esterase (Negative) Urine WBC (Auto) (0-5) /hpf Urine RBC (Auto) (0-4) /hpf Urine Bacteria (Auto) (Negative) Urine Yeast (None Prsent) (3) Syncope Syncope type: unspecified Qualified Code(s): R55 - Syncope and collapse (4) COPD (chronic obstructive pulmonary disease) COPD type: unspecified COPD Qualified Code(s): J44.9 - Chronic obstructive pulmonary disease, unspecified
[2023-05-23] MEDS ORDERED: LANTUS PER UNIT CHARGE SQ ONE ×2 (12:45→21:00)
[2023-05-23] MEDS: ALBUTEROL 0.083% NEBU SOLN 3 ML VIAL NEB SCH ×2 (12:49→19:15)
[2023-05-23] MEDS ORDERED: WARFARIN SOD 5 MG TAB PO ONE (13:00)
--- NOTE | 2023-05-23 13:03 | Pharmacy Report ---
Pharmacy Glycemic Short Note 2 - Date of Service May 23, 2023 - Glycemic Short BSG Results (Last 24 hours): 05/22/23 05/23/23 05/23/23 21:09 02:16 06:00 Glucose 152 H POC Glucose 230 H 147 H 05/23/23 05/23/23 08:31 12:13 Glucose POC Glucose 176 H 206 H OUTPATIENT ANTIDIABETIC REGIMEN: * Lantus 50 units SC HS * Novolog 10 units SC TIDM * Glipizide 10 mg PO BIDM HbA1c: 7.8% (04/08/23) ASSESSMENT: * AISLINN is a 52 year old male who presented to ED last evening with dyspnea, syncope, and weakness * Patient well known to pharmacy glycemic service for past steroid-induced hyperglycemia * No steroids ordered initially - prednisone 40 mg PO daily started this afternoon * Given past data suggestive of steroid sensitivity - will tighten Novolog parameters substantially and increase basal PLAN FOR INPATIENT GLYCEMIC CONTROL: * Hold outpatient oral diabetes medications * Basal insulin * Lantus 20 units SC x 1 this morning * Lantus 30 units SC x 1 this afternoon w/ first dose of prednisone * Lantus scale 0-20 units SC HS (see EHR for details) * Bolus insulin * NovoLog per scale ACHS or Q6hrs while NPO * Goal Range: Low 110 mg/dL - High 140 mg/dL * Correction Factor: 10 mg/dL/unit * Nutritional / Prandial insulin per carb ratio of 1 unit per 3 grams CHO consumed
[2023-05-23] MEDS: predniSONE 20 MG TAB PO SCH (14:09)
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
[2023-05-23] MEDS ORDERED: WARFARIN SOD 2.5 MG TAB PO SCH (16:00)
[2023-05-23] MEDS ORDERED: LORazepam 2 MG/1 ML VIAL IV STA (21:32)
[2023-05-23] MEDS: ATORVASTATIN 40 MG TAB PO SCH (22:13)
[2023-05-23] MEDS ORDERED: ACETAMINOPHEN 1,000 MG/100 ML VIAL IV STA (23:09)
[2023-05-24] MEDS: ALBUTEROL 0.083% NEBU SOLN 3 ML VIAL NEB SCH ×2 (00:56→07:33)
[2023-05-24] MEDS: PANTOprazole 40 MG TAB PO SCH (06:05)
[2023-05-24 06:52] LABS: Hematocrit (blood only) 37.9 % (42.0-52.0); Hemoglobin 11.9 g/dl (14.0-18.0); Mean Corpuscular Hemoglobin 24.9 pg (25.0-34.0); Mean Corpuscular Hgb Conc 31.4 g/dL (32.0-36.0); Mean Corpuscular Volume 79.5 fL (80.0-100.0); Mean Platelet Volume 10.7 fL (9.4-12.4); Platelet Count 278 K/uL (130-400); RDW Coefficient of Variation 19.9 % (11.5-14.5); RDW Standard Deviation 54.8 fL (36.4-46.3); Red Blood Count 4.77 M/uL (4.70-6.10); White Blood Count 14.22 K/ul (4.8-10.8)
[2023-05-24 07:08] LABS: INR 1.6 (0.9-1.1); Prothrombin Time 16.7 Seconds (9.0-12.0)
[2023-05-24 07:10] LABS: BUN Creatinine Ratio 13.1 (10-20); Calcium 9.4 mg/dl (8.6-10.3); Creatinine Clr Calc Pharmacy 159.9 ml/min; Est GFR (African American) 101.1 ml/min; Est GFR (Non-African American) 87.2 ml/min; Magnesium 1.8 mg/dl (1.7-2.4); Phosphorus 2.3 mg/dl (2.5-4.9); Potassium 3.8 mmol/L (3.5-5.1)
[2023-05-24] MEDS ORDERED: ALBUT/IPRATROP 3MG/0.5MG NEB 3 ML VIAL NEB PRN (08:29)
[2023-05-24] MEDS ORDERED: INSULIN HUMAN NPH SC SCH (09:00)
[2023-05-24] MEDS ORDERED: LANTUS PER UNIT CHARGE SQ SCH (09:00)
[2023-05-24] MEDS ORDERED: BUDESONIDE 0.5 MG/2 ML VIAL (PULMICORT) NEB SCH (09:00)
[2023-05-24] MEDS: FLUTICASONE PROPIONATE NA SPR 16 GM BTL SCH (09:20)
[2023-05-24] MEDS: FLUTICASONE FUROATE 200MCG 14 PUFFS/INHALER INH SCH (09:20)
[2023-05-24] MEDS: predniSONE 20 MG TAB PO SCH (09:21)
[2023-05-24] MEDS: NICOTINE 21 MG/24 HR TDSY TD SCH (09:21)
[2023-05-24] MEDS: UMECLIDINIUM/VILANTEROL 62.5/25MCG 7 PUFFS/INHALER INH SCH (09:21)
[2023-05-24] MEDS: FAMOTIDINE 20 MG TAB PO SCH (09:22)
[2023-05-24] MEDS: TORSEMIDE 100 MG TAB PO SCH (09:22)
[2023-05-24] MEDS: TAMSULOSIN HCL 0.4 MG CAP PO SCH (09:22)
[2023-05-24] MEDS: ISOSORBIDE DINITRATE 10 MG TAB PO SCH (09:22)
[2023-05-24] MEDS: FINASTERIDE 5 MG TAB PO SCH (09:22)
[2023-05-24] MEDS: DULoxetine HCL 60 MG CAP PO SCH (09:22)
[2023-05-24] MEDS: SPIRONOLACTONE 25 MG TAB PO SCH (09:22)
[2023-05-24] MEDS: ASPIRIN 81 MG ECTAB PO SCH (09:23)
[2023-05-24] MEDS: GABAPENTIN 800 MG TAB PO SCH ×3 (09:23→21:31)
[2023-05-24] MEDS: FERROUS SULFATE 325 MG TAB PO SCH (09:23)
[2023-05-24] MEDS: INSULIN ASPART PER UNIT CHARGE SC SCH ×4 (09:33→21:26)
[2023-05-24] MEDS: DOCUSATE SODIUM 100 MG CAP PO SCH ×2 (09:34→21:30)
[2023-05-24] MEDS: buprenorphine HCL 8 MG SUBL SL SCH ×3 (09:34→21:57)
[2023-05-24] MEDS: CYCLOBENZAPRINE HCL 10 MG TAB PO PRN ×2 (09:34→21:24)
[2023-05-24] MEDS: POTASSIUM CHLORIDE CRTAB 20 MEQ TABCR PO SCH ×2 (09:34→21:25)
--- NOTE | 2023-05-24 10:37 | Hospitalist Progress Note ---
Date of Service May 24, 2023 Assessment & Plan (1) Shortness of breath: (2) Hypomagnesemia: (3) Syncope: (4) COPD (chronic obstructive pulmonary disease): (5) Generalized weakness: (6) History of pulmonary embolism: (7) 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: (8) Tobacco use: Plan 52 year old with history of medicinal noncompliance, chronic HFpEF, history of PE on chronic anticoagulation, indwelling chronic fontaine catheter (last changed 05/06/23), chronic systolic CHF, HTN, HLD, hypomagnesemia, DM type 2 insulin- dependent, COPD (wears supplemental O2 at night), morbid obesity, depression with anxiety, and chronic anticoagulation and active smoker who presented with increased SOB, cough and chest discomfort with wheezing over the past few days Also reported having an episode of syncope and weakness. Multiple admission for similar complaints. This will be 6th admission within the past 5 months CXR negative for acute cardiopulmonary process. P Labs notable for WBC of 9.65, Mg 1.6, K+ 3.5, Troponin negative, BNP normal. VBG pH 739, Co2 76, HCO3 46. COPD exacerbation Acute on chronic respiratory failure with hypoxia and hypercapnea Continue Nebs, Prednisone Pulmicort nebs Monitor I/O Leukocytosis likely due to steroid Counseled agin about smoking cessation. He is to follow up with his Dr about sleep study Hypomagnesia: Mag was 1.6 on admission. Mag is 1.8 today Repleted Replete hypophosphatemia today Chronic diastolic heart failure Continue home spironolactone, torsemide and potassium Continue ASA, atorvastatin, isordil Chronic Anticoagulation: History of PE: Per Anticoag Clinic note on 05/18/23, Coumadin 2.5mg on Sun Tues and Thurs, 5 mg all other days INR 2.0 on admission INR is 1.6 today. 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 Askew CODE STATUS: Full code VTE prophylaxis: On Coumadin I spent a total of 45 minutes coordinating, documenting and providing care for this patient excluding time spent in performance of separately billed services Admission and Anticipated Discharge Date Admission Date: May 22, 2023 Subjective Patient seen and examined Still reports dry cough and SOB Currently on room air Denied any headache, fever, chills, nausea, abd pain, diarrhea Reports some muscle spasms and back pain Physical Exam Constitutional: + well hydrated and + obese; no acute distress Eyes: PERRL, conjunctivae normal, anicteric sclerae ENMT: external ear and nose normal, oropharynx normal Respiratory: normal respiratory effort; no respiratory distress +Rhonchi Cardiovascular: Rate/Rhythm: regular rate and regular rhythm S1 S2 Gastrointestinal (Abdomen): normal bowel sounds, soft, nontender, no hepatosplenomegaly Musculoskeletal: Chronic pedal edema Neurologic: PERRL, EOMI, accommodation nl, no face palsy, no dysarthria Psychiatric: A+Ox3, euthymic affect Results & Data Results & Data Vital Signs (Past 12 Hours) Vital Signs Temp Pulse Pulse Resp BP Pulse Ox O2 Del Method 05/24/23 09:26 76 18 95 Room Air 05/24/23 07:57 36.6 C 77 16 142/79 H 94 Room Air 05/24/23 07:31 88 20 92 Room Air 05/24/23 07:22 67 05/24/23 06:30 98 Nasal Cannula 05/24/23 06:08 36.6 C 74 16 117/80 98 Nasal Cannula 05/23/23 23:16 37.1 C 90 18 139/79 91 Nasal Cannula O2 Flow Rate 05/24/23 09:26 05/24/23 07:57 05/24/23 07:31 05/24/23 07:22 05/24/23 06:30 2 05/24/23 06:08 4 05/23/23 23:16 3 Laboratory Results Abnormal lab results 05/23/23 05/23/23 05/23/23 Range/Units 12:13 16:59 20:47 WBC (4.8-10.8) K/ul Hgb (14.0-18.0) g/dl Hct (42.0-52.0) % MCV (80.0-100.0) fL MCH (25.0-34.0) pg MCHC (32.0-36.0) g/dL RDW Std Deviation (36.4-46.3) fL RDW Coeff of Megan (11.5-14.5) % PT (9.0-12.0) Seconds INR (0.9-1.1) Chloride (98-107) mmol/L Carbon Dioxide (21-32) mmol/L Anion Gap (3-11) Glucose (70-99(Fasting)) mg/dl POC Glucose 206 H 188 H 308 H* (70-99) mg/dl Phosphorus (2.5-4.9) mg/dl 05/23/23 05/24/23 05/24/23 Range/Units 20:50 06:09 06:09 WBC 14.22 H (4.8-10.8) K/ul Hgb 11.9 L (14.0-18.0) g/dl Hct 37.9 L (42.0-52.0) % MCV 79.5 L (80.0-100.0) fL MCH 24.9 L (25.0-34.0) pg MCHC 31.4 L (32.0-36.0) g/dL RDW Std Deviation 54.8 H (36.4-46.3) fL RDW Coeff of Megan 19.9 H (11.5-14.5) % PT 16.7 H (9.0-12.0) Seconds INR 1.6 H (0.9-1.1) Chloride (98-107) mmol/L Carbon Dioxide (21-32) mmol/L Anion Gap (3-11) Glucose (70-99(Fasting)) mg/dl POC Glucose 297 H (70-99) mg/dl Phosphorus (2.5-4.9) mg/dl 05/24/23 05/24/23 Range/Units 06:09 08:26 WBC (4.8-10.8) K/ul Hgb (14.0-18.0) g/dl Hct (42.0-52.0) % MCV (80.0-100.0) fL MCH (25.0-34.0) pg MCHC (32.0-36.0) g/dL RDW Std Deviation (36.4-46.3) fL RDW Coeff of Megan (11.5-14.5) % PT (9.0-12.0) Seconds INR (0.9-1.1) Chloride 97 L (98-107) mmol/L Carbon Dioxide 37 H (21-32) mmol/L Anion Gap 2 L (3-11) Glucose 286 H (70-99(Fasting)) mg/dl POC Glucose 251 H (70-99) mg/dl Phosphorus 2.3 L (2.5-4.9) mg/dl (3) Syncope Syncope type: unspecified Qualified Code(s): R55 - Syncope and collapse (4) COPD (chronic obstructive pulmonary disease) COPD type: unspecified COPD Qualified Code(s): J44.9 - Chronic obstructive pulmonary disease, unspecified
[2023-05-24] MEDS: METOPROLOL SUCC 25MG EXT REL TAB PO SCH ×2 (10:39→21:30)
[2023-05-24] MEDS ORDERED: ACETAMINOPHEN 1,000 MG/100 ML VIAL IV STA ×2 (11:10→22:13)
[2023-05-24] MEDS ORDERED: POT PHOSPHATE MONOBASIC W/ SOD TAB PO ONE (11:13)
[2023-05-24] MEDS: ONDANSETRON INJ 2 MG/ML 2 ML VIAL IV PRN (13:01)
--- NOTE | 2023-05-24 13:15 | Pharmacy Report ---
Pharmacy Glycemic Short Note 2 - Date of Service May 24, 2023 - Glycemic Short BSG Results (Last 24 hours): 05/23/23 05/23/23 05/23/23 16:59 20:47 20:50 Glucose POC Glucose 188 H 308 H* 297 H 05/24/23 05/24/23 05/24/23 06:09 08:26 12:12 Glucose 286 H POC Glucose 251 H 384 H* 05/24/23 05/24/23 12:13 12:14 Glucose POC Glucose 323 H* 286 H OUTPATIENT ANTIDIABETIC REGIMEN: * Lantus 50 units SC HS * Novolog 10 units SC TIDM * Glipizide 10 mg PO BIDM HbA1c: 7.8% (04/08/23) ASSESSMENT: 05/24/23: * BSGs elevated yesterday, ranging 176-297 mg/dL * Patient received 140 units of insulin (50/50 basal/bolus split) * Prednisone 40 mg PO daily ongoing - will add NPH insulin and tighten Novolog today * Given extreme body weight, will start w/ ~0.2 unit/kg NPH to cover steroid 05/23/23: * AISLINN is a 52 year old male who presented to ED last evening with dyspnea, syncope, and weakness * Patient well known to pharmacy glycemic service for past steroid-induced hyperglycemia * No steroids ordered initially - prednisone 40 mg PO daily started this afternoon * Given past data suggestive of steroid sensitivity - will tighten Novolog parameters substantially and increase basal PLAN FOR INPATIENT GLYCEMIC CONTROL: * Hold outpatient oral diabetes medications * Basal insulin * Lantus 30 units SC x 1 this morning * Lantus 10-30 units SC HS x 1 * NPH 40 units SC daily w/ prednisone * Bolus insulin * NovoLog per scale ACHS or Q6hrs while NPO * Goal Range: Low 110 mg/dL - High 140 mg/dL * Correction Factor: 8 mg/dL/unit * Nutritional / Prandial insulin per carb ratio of 1 unit per 2 grams CHO consumed
[2023-05-24] MEDS ORDERED: WARFARIN SOD 5 MG TAB PO SCH (16:00)
--- NOTE | 2023-05-24 20:35 | Electrocardiogram Report ---
Test Reason : Blood Pressure : / mmHG Vent. Rate : 074 BPM Atrial Rate : 074 BPM P-R Int : 158 ms QRS Dur : 104 ms QT Int : 412 ms P-R-T Axes : 053 046 063 degrees QTc Int : 457 ms Normal sinus rhythm Nonspecific ST and T wave abnormality Abnormal ECG When compared with ECG of 04-MAY-2023 15:40, No significant change was found Confirmed by Shaquille Canales ([id number]) on 05/24/2023 8:35:14 PM Referred By: Confirmed By:Shaquille Canales
--- NOTE | 2023-05-24 20:43 | Electrocardiogram Report ---
Test Reason : Blood Pressure : / mmHG Vent. Rate : 071 BPM Atrial Rate : 071 BPM P-R Int : 164 ms QRS Dur : 108 ms QT Int : 404 ms P-R-T Axes : 020 040 062 degrees QTc Int : 439 ms Normal sinus rhythm Nonspecific T wave abnormality Abnormal ECG When compared with ECG of 22-MAY-2023 11:34, No significant change was found Confirmed by Shaquille Canales ([id number]) on 05/24/2023 8:43:21 PM Referred By: REFERRED SELF Confirmed By:Shaquille Canales
[2023-05-24] MEDS ORDERED: LANTUS PER UNIT CHARGE SQ ONE (21:00)
[2023-05-24] MEDS: ATORVASTATIN 40 MG TAB PO SCH (21:29)
[2023-05-24] MEDS: BUDESONIDE 0.5 MG/2 ML VIAL (PULMICORT) NEB SCH (22:00)
[2023-05-25] MEDS ORDERED: ACETAMINOPHEN 1000 MG/100 ML IV IV ONE (00:34)
[2023-05-25] MEDS: PANTOprazole 40 MG TAB PO SCH (05:41)
[2023-05-25] MEDS: BUDESONIDE 0.5 MG/2 ML VIAL (PULMICORT) NEB SCH ×2 (07:29→19:38)
[2023-05-25] MEDS ORDERED: ACETAMINOPHEN 1,000 MG/100 ML VIAL IV STA ×2 (08:31→20:59)
[2023-05-25] MEDS: UMECLIDINIUM/VILANTEROL 62.5/25MCG 7 PUFFS/INHALER INH SCH (08:48)
[2023-05-25] MEDS: ISOSORBIDE DINITRATE 10 MG TAB PO SCH (08:48)
[2023-05-25] MEDS: NICOTINE 21 MG/24 HR TDSY TD SCH (08:48)
[2023-05-25] MEDS: FLUTICASONE FUROATE 200MCG 14 PUFFS/INHALER INH SCH (08:48)
[2023-05-25] MEDS: FLUTICASONE PROPIONATE NA SPR 16 GM BTL SCH (08:48)
[2023-05-25] MEDS: predniSONE 20 MG TAB PO SCH (08:48)
[2023-05-25] MEDS: TAMSULOSIN HCL 0.4 MG CAP PO SCH (08:49)
[2023-05-25] MEDS: FAMOTIDINE 20 MG TAB PO SCH (08:49)
[2023-05-25] MEDS: METOPROLOL SUCC 25MG EXT REL TAB PO SCH ×2 (08:49→21:38)
[2023-05-25] MEDS: ASPIRIN 81 MG ECTAB PO SCH (08:49)
[2023-05-25] MEDS: GABAPENTIN 800 MG TAB PO SCH ×3 (08:49→21:37)
[2023-05-25] MEDS: TORSEMIDE 100 MG TAB PO SCH (08:49)
[2023-05-25] MEDS: FINASTERIDE 5 MG TAB PO SCH (08:49)
[2023-05-25] MEDS: SPIRONOLACTONE 25 MG TAB PO SCH (08:49)
[2023-05-25] MEDS: FERROUS SULFATE 325 MG TAB PO SCH (08:49)
[2023-05-25] MEDS: DULoxetine HCL 60 MG CAP PO SCH (08:49)
[2023-05-25 08:56] LABS: Hematocrit (blood only) 42.9 % (42.0-52.0); Hemoglobin 13.1 g/dl (14.0-18.0); Mean Corpuscular Hemoglobin 24.9 pg (25.0-34.0); Mean Corpuscular Hgb Conc 30.5 g/dL (32.0-36.0); Mean Corpuscular Volume 81.6 fL (80.0-100.0); Mean Platelet Volume 10.4 fL (9.4-12.4); Platelet Count 273 K/uL (130-400); RDW Coefficient of Variation 20.2 % (11.5-14.5); Red Blood Count 5.26 M/uL (4.70-6.10); White Blood Count 13.66 K/ul (4.8-10.8)
[2023-05-25] MEDS: POTASSIUM CHLORIDE CRTAB 20 MEQ TABCR PO SCH ×2 (09:02→21:32)
[2023-05-25] MEDS: CYCLOBENZAPRINE HCL 10 MG TAB PO PRN ×2 (09:02→21:32)
[2023-05-25] MEDS: buprenorphine HCL 8 MG SUBL SL SCH ×3 (09:02→21:32)
[2023-05-25] MEDS: INSULIN ASPART PER UNIT CHARGE SC SCH ×4 (09:02→21:33)
[2023-05-25] MEDS: DOCUSATE SODIUM 100 MG CAP PO SCH ×2 (09:02→21:32)
[2023-05-25] MEDS: LANTUS PER UNIT CHARGE SC SCH (09:02)
[2023-05-25] MEDS: INSULIN HUMAN NPH SC SCH (09:03)
--- NOTE | 2023-05-25 09:31 | Hospitalist Progress Note ---
Date of Service May 25, 2023 Assessment & Plan (1) Shortness of breath: (2) Hypomagnesemia: (3) Syncope: (4) COPD (chronic obstructive pulmonary disease): (5) Generalized weakness: (6) History of pulmonary embolism: (7) 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: (8) Tobacco use: Plan 52 year old with history of medicinal noncompliance, chronic HFpEF, history of PE on chronic anticoagulation, indwelling chronic fontaine catheter (last changed 05/06/23), chronic systolic CHF, HTN, HLD, hypomagnesemia, DM type 2 insulin- dependent, COPD (wears supplemental O2 at night), morbid obesity, depression with anxiety, and chronic anticoagulation and active smoker who presented with increased SOB, cough and chest discomfort with wheezing over the past few days Also reported having an episode of syncope and weakness. Multiple admission for similar complaints. This will be 6th admission within the past 5 months CXR negative for acute cardiopulmonary process. On admission, Labs notable for WBC of 9.65, Mg 1.6, K+ 3.5, Troponin negative, BNP normal. VBG pH 739, Co2 76, HCO3 46. COPD exacerbation Acute on chronic respiratory failure with hypoxia and hypercapnea Continue Nebs, Prednisone Continue Pulmicort nebs Monitor I/O Leukocytosis likely due to steroid Smoking cessation counselling had been done He is to follow up with his Dr about sleep study Hypomagnesia: Mag was 1.6 on admission. Mag is 1.8 today Repleted Chronic diastolic heart failure Continue home spironolactone, torsemide and potassium Continue ASA, atorvastatin, isordil Chronic Anticoagulation: History of PE: Per Anticoag Clinic note on 05/18/23, Coumadin 2.5mg on Sun Tues and Thurs, 5 mg all other days INR 2.0 on admission INR is 1.8 today. 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 Askew CODE STATUS: Full code VTE prophylaxis: On Coumadin Possible dc tomorrow. Requested new nebulizer machine stating his does not work well anymore. Script written for CM I spent a total of 45 minutes coordinating, documenting and providing care for this patient excluding time spent in performance of separately billed services Admission and Anticipated Discharge Date Admission Date: May 22, 2023 Subjective Patient seen and examined Reports cough and shortness of breath are improving Denied any headache, fever, chills, nausea, abd pain, diarrhea Reports chronic back and lower extremity pain Physical Exam Constitutional: + well hydrated and + obese; no acute distress Eyes: PERRL, conjunctivae normal, anicteric sclerae ENMT: external ear and nose normal, oropharynx normal Respiratory: normal respiratory effort; no respiratory distress +rhonchi Cardiovascular: Rate/Rhythm: regular rate and regular rhythm S1 S2 Gastrointestinal (Abdomen): normal bowel sounds, soft, nontender, no hepatosplenomegaly Musculoskeletal: Chronic pedal edema Neurologic: PERRL, EOMI, accommodation nl, no face palsy, no dysarthria Psychiatric: A+Ox3, euthymic affect Genitourinary: Fontaine in situ Results & Data Results & Data Vital Signs (Past 12 Hours) Vital Signs Temp Pulse Pulse Resp BP Pulse Ox O2 Del Method 05/25/23 07:44 Room Air 05/25/23 07:34 36.6 C 66 20 125/66 100 Nasal Cannula 05/25/23 07:29 65 16 98 Nasal Cannula 05/25/23 07:02 61 05/25/23 04:00 36.5 C 68 20 160/74 H 99 Nasal Cannula 05/25/23 00:46 80 05/24/23 23:57 36.6 C 71 18 127/72 98 Nasal Cannula 05/24/23 22:09 05/24/23 21:44 84 18 93 Room Air O2 Flow Rate 05/25/23 07:44 05/25/23 07:34 4 05/25/23 07:29 4 05/25/23 07:02 05/25/23 04:00 4 05/25/23 00:46 05/24/23 23:57 4 05/24/23 22:09 4 05/24/23 21:44 Laboratory Results Abnormal lab results 05/24/23 05/24/23 05/24/23 Range/Units 12:12 12:13 12:14 WBC (4.8-10.8) K/ul Hgb (14.0-18.0) g/dl MCH (25.0-34.0) pg MCHC (32.0-36.0) g/dL RDW Std Deviation (36.4-46.3) fL RDW Coeff of Megan (11.5-14.5) % PT (9.0-12.0) Seconds INR (0.9-1.1) Carbon Dioxide (21-32) mmol/L Glucose (70-99(Fasting)) mg/dl POC Glucose 384 H* 323 H* 286 H (70-99) mg/dl 05/24/23 05/24/23 05/24/23 Range/Units 12:34 17:08 20:29 WBC (4.8-10.8) K/ul Hgb (14.0-18.0) g/dl MCH (25.0-34.0) pg MCHC (32.0-36.0) g/dL RDW Std Deviation (36.4-46.3) fL RDW Coeff of Megan (11.5-14.5) % PT (9.0-12.0) Seconds INR (0.9-1.1) Carbon Dioxide (21-32) mmol/L Glucose 281 H (70-99(Fasting)) mg/dl POC Glucose 261 H 225 H (70-99) mg/dl 05/25/23 05/25/23 05/25/23 Range/Units 07:51 08:31 08:31 WBC 13.66 H (4.8-10.8) K/ul Hgb 13.1 L (14.0-18.0) g/dl MCH 24.9 L (25.0-34.0) pg MCHC 30.5 L (32.0-36.0) g/dL RDW Std Deviation 58.0 H (36.4-46.3) fL RDW Coeff of Megan 20.2 H (11.5-14.5) % PT 19.3 H (9.0-12.0) Seconds INR 1.8 H (0.9-1.1) Carbon Dioxide (21-32) mmol/L Glucose (70-99(Fasting)) mg/dl POC Glucose 277 H (70-99) mg/dl 05/25/23 Range/Units 08:31 WBC (4.8-10.8) K/ul Hgb (14.0-18.0) g/dl MCH (25.0-34.0) pg MCHC (32.0-36.0) g/dL RDW Std Deviation (36.4-46.3) fL RDW Coeff of Megan (11.5-14.5) % PT (9.0-12.0) Seconds INR (0.9-1.1) Carbon Dioxide 36 H (21-32) mmol/L Glucose 263 H (70-99(Fasting)) mg/dl POC Glucose (70-99) mg/dl (3) Syncope Syncope type: unspecified Qualified Code(s): R55 - Syncope and collapse (4) COPD (chronic obstructive pulmonary disease) COPD type: unspecified COPD Qualified Code(s): J44.9 - Chronic obstructive pulmonary disease, unspecified
[2023-05-25 09:34] LABS: INR 1.8 (0.9-1.1); Prothrombin Time 19.3 Seconds (9.0-12.0)
[2023-05-25 10:13] LABS: Calcium 9.7 mg/dl (8.6-10.3); Magnesium 1.8 mg/dl (1.7-2.4); Potassium 3.5 mmol/L (3.5-5.1)
[2023-05-25 10:19] LABS: BUN Creatinine Ratio 18.9 (10-20); Creatinine Clr Calc Pharmacy 168.1 ml/min; Est GFR (African American) 106.2 ml/min; Est GFR (Non-African American) 91.7 ml/min; Phosphorus 3.3 mg/dl (2.5-4.9)
--- NOTE | 2023-05-25 11:49 | Pharmacy Report ---
Pharmacy Glycemic Short Note 2 - Date of Service May 25, 2023 - Glycemic Short BSG Results (Last 24 hours): 05/24/23 05/24/23 05/24/23 12:12 12:13 12:14 Glucose POC Glucose 384 H* 323 H* 286 H 05/24/23 05/24/23 05/24/23 12:34 17:08 20:29 Glucose 281 H POC Glucose 261 H 225 H 05/25/23 05/25/23 07:51 08:31 Glucose 263 H POC Glucose 277 H OUTPATIENT ANTIDIABETIC REGIMEN: * Lantus 50 units SC HS * Novolog 10 units SC TIDM * Glipizide 10 mg PO BIDM HbA1c: 7.8% (04/08/23) ASSESSMENT: 05/25/23: * Patient received 100 units of total basal insulin (60 units of Lantus + 40 units NPH) in addition to 142 units of bolus insulin. This is a significant increase from the day before but patients BSGs were still elevated yesterday- [phone] mg/dl. * Fasting BSG today was 277 mg/dl. * Novolog correction factor tightened and NPH insulin increased to 45 units to be given with Prednisone 40 mg daily. This may need increased further. Will re-assess tomorrow. * AM Lantus continued the same as yesterday at 30 units but HS dose increased; will continue to utilize a scale that is based on BSG at HS. 05/24/23: * BSGs elevated yesterday, ranging 176-297 mg/dL * Patient received 140 units of insulin (50/50 basal/bolus split) * Prednisone 40 mg PO daily ongoing - will add NPH insulin and tighten Novolog today * Given extreme body weight, will start w/ ~0.2 unit/kg NPH to cover steroid 05/23/23: * AISLINN is a 52 year old male who presented to ED last evening with dyspnea, syncope, and weakness * Patient well known to pharmacy glycemic service for past steroid-induced hyperglycemia * No steroids ordered initially - prednisone 40 mg PO daily started this afternoon * Given past data suggestive of steroid sensitivity - will tighten Novolog parameters substantially and increase basal PLAN FOR INPATIENT GLYCEMIC CONTROL: * Hold outpatient oral diabetes medications * Basal insulin * Lantus 30 units SC x 1 this morning * Lantus 20-40 units SC HS x 1 based on BSG * NPH 45 units SC daily w/ prednisone * Bolus insulin * NovoLog per scale ACHS or Q6hrs while NPO * Goal Range: Low 110 mg/dL - High 140 mg/dL * Correction Factor: 6 mg/dL/unit * Nutritional / Prandial insulin per carb ratio of 1 unit per 2 grams CHO consumed
[2023-05-25] MEDS: ONDANSETRON INJ 2 MG/ML 2 ML VIAL IV PRN (12:36)
[2023-05-25] MEDS ORDERED: WARFARIN SOD 2.5 MG TAB PO SCH (16:00)
[2023-05-25] MEDS ORDERED: PROMETHAZINE HCL 25 MG TAB PO PRN (16:40)
[2023-05-25] MEDS ORDERED: LANTUS PER UNIT CHARGE SQ ONE (21:00)
[2023-05-25] MEDS: ATORVASTATIN 40 MG TAB PO SCH (21:37)
[2023-05-26] MEDS ORDERED: KETOROLAC TROMETHAMINE 15 MG/ML VIAL IV ONE (02:48)
[2023-05-26] MEDS: PANTOprazole 40 MG TAB PO SCH (05:48)
[2023-05-26] MEDS: BUDESONIDE 0.5 MG/2 ML VIAL (PULMICORT) NEB SCH (07:06)
[2023-05-26] MEDS: buprenorphine HCL 8 MG SUBL SL SCH (08:50)
[2023-05-26] MEDS: METOPROLOL SUCC 25MG EXT REL TAB PO SCH (08:51)
[2023-05-26] MEDS: POTASSIUM CHLORIDE CRTAB 20 MEQ TABCR PO SCH (08:51)
[2023-05-26] MEDS: NICOTINE 21 MG/24 HR TDSY TD SCH (08:52)
[2023-05-26] MEDS: GABAPENTIN 800 MG TAB PO SCH (08:52)
[2023-05-26] MEDS: predniSONE 20 MG TAB PO SCH (08:52)
[2023-05-26] MEDS: SPIRONOLACTONE 25 MG TAB PO SCH (08:52)
[2023-05-26] MEDS: ISOSORBIDE DINITRATE 10 MG TAB PO SCH (08:53)
[2023-05-26] MEDS: FAMOTIDINE 20 MG TAB PO SCH (08:53)
[2023-05-26] MEDS: FINASTERIDE 5 MG TAB PO SCH (08:53)
[2023-05-26] MEDS: TAMSULOSIN HCL 0.4 MG CAP PO SCH (08:53)
[2023-05-26] MEDS: FERROUS SULFATE 325 MG TAB PO SCH (08:54)
[2023-05-26] MEDS: INSULIN HUMAN NPH SC SCH (08:55)
[2023-05-26] MEDS: INSULIN ASPART PER UNIT CHARGE SC SCH (08:55)
[2023-05-26] MEDS: LANTUS PER UNIT CHARGE SC SCH (08:55)
[2023-05-26] MEDS: ASPIRIN 81 MG ECTAB PO SCH (08:56)
[2023-05-26] MEDS: UMECLIDINIUM/VILANTEROL 62.5/25MCG 7 PUFFS/INHALER INH SCH (08:57)
[2023-05-26] MEDS: FLUTICASONE FUROATE 200MCG 14 PUFFS/INHALER INH SCH (08:57)
[2023-05-26] MEDS: DULoxetine HCL 60 MG CAP PO SCH (08:57)
[2023-05-26] MEDS: TORSEMIDE 100 MG TAB PO SCH (08:57)
[2023-05-26] MEDS: FLUTICASONE PROPIONATE NA SPR 16 GM BTL SCH (08:58)
[2023-05-26] MEDS: DOCUSATE SODIUM 100 MG CAP PO SCH (09:01)
[2023-05-26] MEDS: CYCLOBENZAPRINE HCL 10 MG TAB PO PRN (09:01)
[2023-05-26] MEDS ORDERED: AMOXICILLIN/CLAVULANATE 875 MG TAB PO SCH (09:10)
[2023-05-26 09:35] LABS: Hematocrit (blood only) 39.7 % (42.0-52.0); Hemoglobin 12.5 g/dl (14.0-18.0); Mean Corpuscular Hemoglobin 25.1 pg (25.0-34.0); Mean Corpuscular Hgb Conc 31.5 g/dL (32.0-36.0); Mean Corpuscular Volume 79.6 fL (80.0-100.0); Mean Platelet Volume 10.3 fL (9.4-12.4); Platelet Count 288 K/uL (130-400); Red Blood Count 4.99 M/uL (4.70-6.10); White Blood Count 15.76 K/ul (4.8-10.8)
[2023-05-26 09:42] LABS: Prothrombin Time 21.4 Seconds (9.0-12.0)
[2023-05-26 10:08] LABS: BUN Creatinine Ratio 20.5 (10-20); Calcium 9.3 mg/dl (8.6-10.3); Creatinine Clr Calc Pharmacy 137.5 ml/min; Est GFR (African American) 82.6 ml/min; Est GFR (Non-African American) 71.3 ml/min; Magnesium 1.7 mg/dl (1.7-2.4); Phosphorus 3.9 mg/dl (2.5-4.9); Potassium 4.1 mmol/L (3.5-5.1)
[2023-05-26] MEDS ORDERED: ACETAMINOPHEN 1,000 MG/100 ML VIAL IV STA (11:38)
--- NOTE | 2023-05-26 11:53 | Discharge Summary ---
Date of Service May 26, 2023 Admission HPI Per Admitting Provider Mr. Milner is a 52 year old unfortunate male that presented to the [facility] today with hypoxia. He called 911 after he reports being at home and feeling like he "can not breathe" and reports feeling "off, mentally"; also reports having an episode of syncope and weakness. he is known to the Hospitalist service from his numerous admissions this year for similar symptoms. He states that over the past 3 days he has felt more SOB, but also reports notusing his oxygen at night as prescribed. No recent known weight gain and does report taking his prescribed medications with compliance. CXR negative for acute cardio pulmonary process. Patient denies fevers or chills. He has had numerous recent hospitalizations for similar symptoms since December 2022; 01/13-01/21, 01/28-02/11, 02/15-03/15, 04/07-04/20, 05/04-05/08. FIVE admissions since December 2022 for acute on chronic respiratory failure and SOB. Poor support and resources at home. PMH includes significant medicinal noncompliance, chronic HFpEF, history of PE on chronic anticoagulation, indwelling chronic fontaine catheter (last changed 05/06/23), chronic systolic CHF, HTN, HLD, hypomagnesemia, DM type 2 insulin- dependent, COPD (wears supplemental O2 at night), morbid obesity, depression with anxiety, and chronic anticoagulation, and tobacco abuse. He has had outpatient monitors in the past for syncope without any arrythmias. He was supposed to attend a Cardiology appointment yesterday, but states he had to cancel for he had no way to get to the appointment. In the ED, No leukocytosis 9.65, Mg 1.6, K+ 3.5, Troponin negative, BNP normal. VBG pH 739, Co2 76, HCO3 46. Baseline CO2 55-80 and has hypercapnia at baseline. Hemodynamically stable. Pt denies Lopez, dizziness, CP, palpitations, abdominal pain, N/V/D, abdominal pain, recent falls or trauma. Pt is sitting upright in his bedside hospital chair AAOx4 and answering questions appropriately in no apparent distress. Pt wearing supplemental O2 with appropriate saturation, intermittent wheezing, no MAXWELL. Will be admitting this gentleman to tele for evaluation of any arrhythmias, overnight O2 monitoring, PT/OT, Replace Mg+, check urine, and obtain labs in AM, including BMP, CBC and PT/INR. Cards consult, Behavior Health Liason and Service Excellence may be beneficial along with Case Management for complex needs related to his repeat admissions. Patient will be admitted for further evaluation and management. Please see A/P for further details. Admission Exam Per Admitting Provider Neuro: AAOx4, PERRLA, no aphagia, memory changes, CNII-XII grossly intact HEENT: head normocephalic, moist mucus membranes CV: S1/S2, (-) M/G/R, (-) edema, cap refill < 3 seconds Resp: Lungs CTA in all hendrickson. On RA GI: Abdomen S/NT/ND, Ax4 bowel sounds, (-) CVA tenderness Musculoskeletal: 5/5 B/L UE strength, 5/5 B/L LE strength. No gait disturbance Skin: (-) rashes , (-) erythema. Psych: euthymic mood Principal Diagnosis Acute exacerbation of COPD Catheter associated UTI Discharge Exam Constitutional: + well hydrated and + obese; no acute distress Eyes: PERRL, conjunctivae normal, anicteric sclerae ENMT: external ear and nose normal, oropharynx normal Respiratory: normal respiratory effort; no respiratory distress +occ rhonchi Cardiovascular: Rate/Rhythm: regular rate and regular rhythm S1 S2 Gastrointestinal (Abdomen): normal bowel sounds, soft, nontender, no hepatosplenomegaly Musculoskeletal: Chronic pedal edema Neurologic: PERRL, EOMI, accommodation nl, no face palsy, no dysarthria Psychiatric: A+Ox3, euthymic affect Genitourinary: Fontaine in situ Discharge Data Allergies Allergy/AdvReac Type Severity Reaction Status Date / Time cefepime Allergy Intermediate rash Verified 05/03/23 18:59 daptomycin Allergy Intermediate rash Verified 05/03/23 18:59 fentanyl Allergy Intermediate RASH/HIVES/SKIN Verified 05/03/23 18:59 REDNESS acetaminophen [From Tylenol] AdvReac Intermediate IRRITATES Verified 05/03/23 18:59 & UPSET STOMACH ibuprofen AdvReac Intermediate Nausea Verified 05/03/23 18:59 naloxone AdvReac Intermediate extremely Verified 05/03/23 18:59 sick valproic acid AdvReac Intermediate PANCREATITS Verified 05/03/23 18:59 Consultations 05/22/23 17:04 ED Decision to Admit Stat 05/22/23 17:06 Consult Behavioral Health Liaison Routine Consult Patient Services Routine 05/23/23 08:00 Consult Cardiology Routine Hospital Course (1) Shortness of breath: (2) Hypomagnesemia: (3) Syncope: (4) COPD (chronic obstructive pulmonary disease): (5) Generalized weakness: (6) History of pulmonary embolism: (7) 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: (8) Tobacco use: Plan Per Prior Attending w/ Addendum: 52 year old with history of medicinal noncompliance, chronic HFpEF, history of PE on chronic anticoagulation, indwelling chronic fontaine catheter (last changed 05/06/23), chronic systolic CHF, HTN, HLD, hypomagnesemia, DM type 2 insulin- dependent, COPD (wears supplemental O2 at night), morbid obesity, depression with anxiety, and chronic anticoagulation and active smoker who presented with increased SOB, cough and chest discomfort with wheezing over the past few days Also reported having an episode of syncope and weakness. Multiple admission for similar complaints. This will be 6th admission within the past 5 months CXR negative for acute cardiopulmonary process. On admission, Labs notable for WBC of 9.65, Mg 1.6, K+ 3.5, Troponin negative, BNP normal. VBG pH 739, Co2 76, HCO3 46. COPD exacerbation Acute on chronic respiratory failure with hypoxia and hypercapnea Continue Nebs, Prednisone Continue Pulmicort nebs Monitor I/O Leukocytosis likely due to steroid Smoking cessation counselling had been done He is to follow up with his Dr about sleep study Hypomagnesia: Mag was 1.6 on admission. Mag is 1.8 today Repleted Chronic diastolic heart failure Continue home spironolactone, torsemide and potassium Continue ASA, atorvastatin, isordil Chronic Anticoagulation: History of PE: Per Anticoag Clinic note on 05/18/23, Coumadin 2.5mg on Sun Tues and Thurs, 5 mg all other days INR 2.0 on admission INR is 1.8 today. 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 Askew CODE STATUS: Full code VTE prophylaxis: On Coumadin Possible dc tomorrow. Requested new nebulizer machine stating his does not work well anymore. Script written for CM ADDENDUM: Patient was seen and examined at [facility], on Room Air, occ rhonci on exam. Bl Gl elevated likely secondary to steroid use, will taper down steroid and stop in few days. Pt reports feeling better and wants to go home, is in hurry due to ride problem. Pt noted to have CAUTI, hence started on antibiotic. Probiotic added. Pt notified. Following instructions communicated at the point of discharge: Follow-up with your primary care physician within a week time and likely you will need labs CBC/CMP/magnesium/phosphorus. For your COPD exacerbation, you will be discharged on tapering dose of steroid, complete the course as prescribed. For your catheter associated UTI, you will be discharged on Augmentin, complete the course. Continue to take your probiotic. Follow-up with your cardiology as an outpatient. Coordinate with your PCP for outpatient sleep study. Take your medications as prescribed. Please make sure that you are able to get your medications today by calling your pharmacy before you leave the hospital so that your treatment continuity is not broken. Home Health Attestation I certify that this patient is under my care and that I, or a physicians criminal legal assistant working with me, had a face to-face encounter that meets the home health [id number] encounter requirements with this patient. The encounter with the patient was in whole, or in part, for the following medical condition, which is the primary reason for home health care (list medical condition): I certify that, based on my findings, the following services are medically necessary home health services: My clinical findings support the need for the above services because: Further, I certify that my clinical findings support that this patient is homebound (i.e. absences from home require considerable and taxing effort and are for medical reasons or baptist services or infrequently or of short duration when for other reasons) because: Certification for Home Health Services: Based on the above findings, I certify that this patient is confined to the home and needs intermittent prison care, physical therapy and/or speech therapy or continues to need occupational therapy. The patient is under my care, and I have initiated the establishment of the plan of care. This patient will be followed by a physician who will periodically review the plan of care. Total Time Total Time Spent Total Time Spent (In Minutes): 45 Discharge Plan Discharge Items Patient Disposition: Home - Self-Care Reason For Visit: SOB Discharge Diagnosis: Acute exacerbation of COPD Catheter associated UTI Activity: Resume your previous activity Non-emergency contact: Primary Care Provider Call non-emergency contact if: you have any medication questions, your symptoms worsen and your temperature is above 101 Follow-up/Referrals: Roberto Askew MD [Primary Care Provider] - (Date & Time 06/01/2023 11:00 AM Provider Roberto Askew MD Department General Internal Medicine [facility] ) Diet: Carb Consistent or DM2 and Heart Healthy Fluids: 1800ml (7 cups) Addtl Attending Provider Instructions: Follow-up with your primary care physician within a week time and likely you will need labs CBC/CMP/magnesium/phosphorus. For your COPD exacerbation, you will be discharged on tapering dose of steroid, complete the course as prescribed. For your catheter associated UTI, you will be discharged on Augmentin, complete the course. Continue to take your probiotic. Follow-up with your cardiology as an outpatient. Coordinate with your PCP for outpatient sleep study. Take your medications as prescribed. Please make sure that you are able to get your medications today by calling your pharmacy before you leave the hospital so that your treatment continuity is not broken. Pending Studies at Discharge: No Stand-Alone Forms: My [facility] Car Throttle, Smoking Cessation Medications and DC Order Prescriptions: New amoxicillin-pot clavulanate 875-125 mg Tablet 1 tab PO BIDM 7 Days Qty: 14 0RF prednisone 20 mg Tablet 20 mg PO DAILY 4 Days Qty: 4 0RF Probiotic 3 billion cell capsule 3,000 mmu cells PO DAILY 10 Days Qty: 10 0RF Rx Instructions: administer with a meal Continued promethazine 12.5 mg tablet 12.5 mg PO BID PRN (Reason: nausea and vomiting) Qty: 10 0RF tamsulosin [Flomax] 0.4 mg capsule 0.8 mg PO QAM Qty: 180 3RF polyethylene glycol 3350 [Miralax] 17 gram powder in packet 17 g PO QAM nitroglycerin [Nitrostat] 0.4 mg tablet, sublingual 0.4 mg Sublingual DIRECTED PRN (Reason: CHEST PAIN) Rx Instructions: PLACE ONE TABLET UNDER THE TONGUE EVERY 5 MINUTES FOR UP TO 3 DOSES OVER 15 MINUTES IF NEEDED FOR CHEST PAIN nystatin 100,000 unit/gram Powder 1 applic TOPICAL TID PRN (Reason: Skin Irritation) Rx Instructions: APPLY DIRECTED TO ABDOMINAL FOLDS cyclobenzaprine 10 mg Tablet 10 mg PO BID PRN (Reason: Muscle Spasm) docusate sodium 100 mg Capsule 100 mg PO BID duloxetine 60 mg capsule,delayed release(DR/EC) 60 mg PO DAILY famotidine 20 mg tablet 20 mg PO DAILY fluticasone propionate 50 mcg/actuation spray,suspension 2 spray Intranasal DAILY aspirin [Ecotrin Low Strength] 81 mg tablet,delayed release (DR/EC) 81 mg PO QAM finasteride 5 mg tablet 5 mg PO QAM metoprolol succinate 50 mg Tablet Extended Release 24 Hr 75 mg PO BID spironolactone 25 mg Tablet 25 mg PO QAM atorvastatin 80 mg tablet 80 mg PO QPM Rx Instructions: TAKE THIS MEDICATION EVERY AFTERNOON sennosides [senna] 8.6 mg Tablet 8.6 mg PO DAILY PRN (Reason: Constipation) folic acid 1 mg Tablet 1 mg PO QAM albuterol sulfate 90 mcg/actuation Hfa Aerosol Inhaler 2 puff INHALATION Q4 PRN (Reason: Dyspnea) omeprazole 20 mg Capsule,Delayed Release(Dr/Ec) 20 mg PO DAILYBB gabapentin 800 mg tablet 800 mg PO TID buprenorphine HCl 8 mg tablet, sublingual 20 mg SUBLINGUAL DAILY Rx Instructions: 2 and half tab daily glipizide 10 mg tablet 10 mg PO BID urea [Ureacin-20] 20 % Cream 1 applic TOPICAL BID magnesium oxide 400 mg (241.3 mg magnesium) tablet 400 mg PO DAILY ferrous sulfate 325 mg (65 mg iron) Tablet 325 mg PO QAM Rx Instructions: Take with breakfast hydroxyzine HCl 25 mg Tablet 25 mg PO QID PRN (Reason: Anxiety) ondansetron HCl 4 mg Tablet 4 mg PO Q8H PRN (Reason: NAUSEA/VOMITING) benzonatate 100 mg Capsule 100 mg PO TID PRN (Reason: cough) Qty: 10 0RF diclofenac sodium [Voltaren Arthritis Pain] 1 % Gel 2 g EXT BID Qty: 50 0RF dextromethorphan-guaifenesin 10-100 mg/5 mL Syrup 5 ml PO Q6H PRN (Reason: cough) Qty: 500 0RF cholecalciferol (vitamin D3) 125 mcg (5,000 unit) Tablet 5,000 unit PO QAM Qty: 30 0RF Lactinex 1 million cell tablet,chewable 1 tab PO TID Qty: 30 0RF isosorbide dinitrate 30 mg tablet 30 mg PO DAILY guaifenesin [Mucinex] 600 mg Tablet Extended Release 12hr 1,200 mg PO BID lorazepam 0.5 mg tablet 0.5 mg PO Q8 PRN (Reason: Anxiety) Qty: 6 0RF nicotine [Nicoderm CQ] 21 mg/24 hr Patch 24 Hour 21 mg transdermal DAILY Qty: 28 0RF potassium chloride 20 mEq tablet extended release 40 meq PO BID insulin aspart U-100 [Novolog FlexPen U-100 Insulin] 100 unit/mL (3 mL) insulin pen 10 unit subcut TIDM Rx Instructions: take before meal insulin glargine [Lantus U-100 Insulin] 100 unit/mL solution 50 unit SC HS Breztri Aerosphere 160-9-4.8 mcg/actuation HFA aerosol inhaler 2 inh inhalation BID Qty: 10.7 0RF warfarin 5 mg tablet 2.5 mg PO DAILY Qty: 14 0RF buprenorphine HCl 8 mg tablet, sublingual 8 mg SUBLINGUAL DAILY buprenorphine HCl 8 mg tablet, sublingual 4 mg SUBLINGUAL DAILY Rx Instructions: pt takes in early afternoon at 1400 buprenorphine HCl 8 mg tablet, sublingual 8 mg SUBLINGUAL HS Rx Instructions: Pt takes 20mg total a day: 8mg in AM, 4mg at 1400 and 8mg with evening medications torsemide 100 mg Tablet 50 mg PO QAM 30 Days Qty: 15 0RF Discharge Orders: Discharge Order (Routine); Ordered 05/26/23 Ordered By: Henrietta Gomez Admission Data Admit Date/Time: 05/22/23 17:04 Attending Provider: Henrietta Gomez Admit Provider: Henrietta Gomez Primary Care Provider: Roberto Askew Other Providers: Henrietta Gomez ; Dick Cardoza ; Winnie Lara I.
== END 2023-05-26 12:10 | disposition home or self-care (01) | DRG 190 ==
LOC: ED 11:00 → SUATTDRO 17:04 → EDINP 17:04 → 2N 19:36

== ENCOUNTER 2023-07-20 16:46 | Observation (INO) ==
[2023-07-20 17:43] LABS: Basophils # (auto) 0.07 K/uL (0.00-0.20); Basophils % (auto) 0.5 %; Eosinophils # (auto) 0.75 K/uL (0.00-0.50); Eosinophils % (auto) 5.2 %; Hemoglobin 13.7 g/dl (14.0-18.0); Immature Granulocytes # (auto) 0.05 K/uL (0.01-0.20); Immature Granulocytes % (auto) 0.3 %; Lymphocytes # (auto) 3.64 K/uL (1.20-3.40); Lymphocytes % (auto) 25.2 %; Mean Corpuscular Hemoglobin 24.9 pg (25.0-34.0); Mean Corpuscular Hgb Conc 33.4 g/dL (32.0-36.0); Mean Corpuscular Volume 74.4 fL (80.0-100.0); Mean Platelet Volume 10.5 fL (9.4-12.4); Monocytes # (auto) 0.94 K/uL (0.11-0.59); Monocytes % (auto) 6.5 %; Neutrophils # (auto) 8.99 K/uL (1.40-6.50); Neutrophils % (auto) 62.3 %; Platelet Count 314 K/uL (130-400); RDW Standard Deviation 52.1 fL (36.4-46.3); Red Blood Count 5.51 M/uL (4.70-6.10); White Blood Count 14.44 K/ul (4.8-10.8)
[2023-07-20] MEDS ORDERED: methylPREDNISolone 125 MG/2 ML VIAL IV STA (17:54)
[2023-07-20] MEDS ORDERED: ALBUTEROL 0.5% NEB SOLN 2.5 MG/0.5 ML VIAL NEB STA (17:54)
--- NOTE | 2023-07-20 18:02 | Emergency Department Note ---
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 Discharge Problem: Pneumonia, Syncope, Hypokalemia Forms Stand Alone Forms: [facility] Prescriptions Prescriptions: No Action promethazine 12.5 mg tablet 12.5 mg PO BID PRN (Reason: nausea and vomiting) Qty: 10 0RF tamsulosin [Flomax] 0.4 mg capsule 0.8 mg PO QAM Qty: 180 3RF polyethylene glycol 3350 [Miralax] 17 gram powder in packet 17 g PO QAM nitroglycerin [Nitrostat] 0.4 mg tablet, sublingual 0.4 mg Sublingual DIRECTED PRN (Reason: CHEST PAIN) Rx Instructions: PLACE ONE TABLET UNDER THE TONGUE EVERY 5 MINUTES FOR UP TO 3 DOSES OVER 15 MINUTES IF NEEDED FOR CHEST PAIN nystatin 100,000 unit/gram Powder 1 applic TOPICAL TID PRN (Reason: Skin Irritation) Rx Instructions: APPLY DIRECTED TO ABDOMINAL FOLDS cyclobenzaprine 10 mg Tablet 10 mg PO BID PRN (Reason: Muscle Spasm) docusate sodium 100 mg Capsule 100 mg PO BID duloxetine 60 mg capsule,delayed release(DR/EC) 60 mg PO DAILY famotidine 20 mg tablet 20 mg PO DAILY fluticasone propionate 50 mcg/actuation spray,suspension 2 spray Intranasal DAILY aspirin [Ecotrin Low Strength] 81 mg tablet,delayed release (DR/EC) 81 mg PO QAM finasteride 5 mg tablet 5 mg PO QAM metoprolol succinate 50 mg Tablet Extended Release 24 Hr 75 mg PO BID spironolactone 25 mg Tablet 25 mg PO QAM atorvastatin 80 mg tablet 80 mg PO QPM Rx Instructions: TAKE THIS MEDICATION EVERY AFTERNOON sennosides [senna] 8.6 mg Tablet 8.6 mg PO DAILY PRN (Reason: Constipation) folic acid 1 mg Tablet 1 mg PO QAM albuterol sulfate 90 mcg/actuation Hfa Aerosol Inhaler 2 puff INHALATION Q4 PRN (Reason: Dyspnea) omeprazole 20 mg Capsule,Delayed Release(Dr/Ec) 20 mg PO DAILYBB gabapentin 800 mg tablet 800 mg PO TID glipizide 10 mg tablet 10 mg PO BID urea [Ureacin-20] 20 % Cream 1 applic TOPICAL BID magnesium oxide 400 mg (241.3 mg magnesium) tablet 400 mg PO DAILY ferrous sulfate 325 mg (65 mg iron) Tablet 325 mg PO QAM Rx Instructions: Take with breakfast hydroxyzine HCl 25 mg Tablet 25 mg PO QID PRN (Reason: Anxiety) ondansetron HCl 4 mg Tablet 4 mg PO Q8H PRN (Reason: NAUSEA/VOMITING) benzonatate 100 mg Capsule 100 mg PO TID PRN (Reason: cough) Qty: 10 0RF diclofenac sodium [Voltaren Arthritis Pain] 1 % Gel 2 g EXT BID Qty: 50 0RF dextromethorphan-guaifenesin 10-100 mg/5 mL Syrup 5 ml PO Q6H PRN (Reason: cough) Qty: 500 0RF cholecalciferol (vitamin D3) 125 mcg (5,000 unit) Tablet 5,000 unit PO QAM Qty: 30 0RF warfarin 5 mg tablet 0 mg PO DAILY Rx Instructions: TAKES DIRECTED BY ANTI COAG. torsemide 100 mg tablet 50 mg PO DAILY Lactinex 1 million cell tablet,chewable 1 tab PO TID Qty: 30 0RF isosorbide dinitrate 30 mg tablet 30 mg PO DAILY guaifenesin [Mucinex] 600 mg Tablet Extended Release 12hr 1,200 mg PO BID lorazepam 0.5 mg tablet 0.5 mg PO Q8 PRN (Reason: Anxiety) Qty: 6 0RF nicotine [Nicoderm CQ] 21 mg/24 hr Patch 24 Hour 21 mg transdermal DAILY Qty: 28 0RF potassium chloride 20 mEq tablet extended release 40 meq PO BID insulin aspart U-100 [Novolog FlexPen U-100 Insulin] 100 unit/mL (3 mL) insulin pen 10 unit subcut TIDM Rx Instructions: take before meal insulin glargine [Lantus U-100 Insulin] 100 unit/mL solution 50 unit SC HS Breztri Aerosphere 160-9-4.8 mcg/actuation HFA aerosol inhaler 2 inh inhalation BID Qty: 10.7 0RF buprenorphine HCl 8 mg tablet, sublingual See Rx Instructions .ROUTE .COMPLEX Rx Instructions: 8 mg sublingually ;Pt takes 20mg total a day: 8mg in AM, 4mg at 1400 and 8mg with evening medications Referrals Referrals: Roberto Askew MD [Primary Care Provider] -
[2023-07-20 18:05] LABS: Albumin Globulin Ratio 0.9 (0.9-2); Albumin Level 3.6 gm/dl (3.4-5.0); BUN Creatinine Ratio 16.2 (10-20); Bilirubin,Total 0.9 mg/dl (0.2-1.0); Calcium 9.4 mg/dl (8.6-10.3); Creatinine Clr Calc Pharmacy 111.1 ml/min; Est GFR (African American) 68.4 ml/min; Globulin 4.2 gm/dl (2.5-4.0); Potassium 2.6 mmol/L (3.5-5.1); Total Protein 7.8 gm/dl (6.0-8.3)
[2023-07-20 18:11] LABS: Troponin I High Sensitivity 13.1 pg/ml (0-20)
--- NOTE | 2023-07-20 18:15 | XRay Report ---
SINGLE VIEW CHEST CLINICAL HISTORY: Atypical chest pain FINDINGS: An AP, portable, upright chest radiograph is compared to study dated 05/22/2023 and correlate d with chest CT dated 05/03/2023. The examination is degraded by portable technique, large body habitu s, and apical lordotic positioning. The heart is enlarged. The pulmonary vasculature is noncongested. There is bibasilar scarring/atelectasis. No airspace consolidation or large pleural effusion is iden tified. No pneumothorax is seen. There is chronic deformity of the left clavicle. IMPRESSION: Cardiomegaly with no acute cardiopulmonary abnormality identified. ACT 112: Negative or not required by law. Electronically signed by: Misael Lopez M.D. 07/20/2023 6:13 PM
[2023-07-20 18:22] LABS: Influenza A virus by PCR Negative (Neg); Influenza B virus by PCR Negative (Neg); RSV by PCR Negative (Neg); SARS CoV2 RNA(COVID-19) Ceph NEGATIVE (Negative)
[2023-07-20] MEDS ORDERED: ACETAMINOPHEN 1,000 MG/100 ML VIAL IV STA (18:52)
[2023-07-20 19:33] LABS: Appearance Urine Turbid (Clear); Bacteria Urine Automated 1+ (Negative); Bilirubin Urine Negative (Negative); Blood Urine 3+ (Negative); Color Urine Yellow; Epithelial Cell Urine Auto >30 /lpf (0-5); Glucose Urine UA Negative (Negative); Ketones Urine Negative (Negative); Leukocyte Esterase Urine 3+ (Negative); Nitrite Urine Negative (Negative); Protein Urine 2+ (Negative); Specific Gravity Urine 1.011 (1.000-1.030); Urobilinogen Urine Negative (Negative); WBC Urine Automated >30 /hpf (0-5)
[2023-07-20 19:49] LABS: Cast Urine Automated 0 /lpf (0-5); RBC Urine Automated 0-4 /hpf (0-4)
[2023-07-20] MEDS ORDERED: OPTIRAY 320 500ml IV ONE (20:13)
--- NOTE | 2023-07-20 20:20 | CT Scan Report ---
Exam(s): CT HEAD Without Contrast EXAM: CT Head Without Intravenous Contrast CLINICAL HISTORY: Reason for exam: head trauma. AMS. TECHNIQUE: Axial computed tomography images of the head/brain without intravenous contrast. CTDI is 38.37 mGy and DLP is 624.41 mGy-cm. Automated exposure control was utilized for the study. A dose lowering technique was utilized adhering to the principles of ALARA. COMPARISON: No relevant prior studies available. FINDINGS: No acute intracranial hemorrhage. No midline shift or mass effect. The territorial donald-white matter differentiation is maintained throughout. The ventricles and sulci are commensurate with age. The visualized orbits appear grossly unremarkable. The calvarium is intact. Chronic RIGHT maxillary sinusitis. IMPRESSION: No acute intracranial hemorrhage, midline shift, or mass effect. Electronically signed by: Joe Lr MD 07/20/23 20:20 PM
--- NOTE | 2023-07-20 20:22 | CT Scan Report ---
Exam(s): CT C SPINE EXAM: CT Cervical Spine Without Intravenous Contrast CLINICAL HISTORY: Reason for exam: AMS, head trauma. TECHNIQUE: Axial computed tomography images of the cervical spine without intravenous contrast. CTDI is 38.31 mGy and DLP is 876.72 mGy-cm. Automated exposure control was utilized for the study. A dose lowering technique was utilized adhering to the principles of ALARA. COMPARISON: No relevant prior studies available. FINDINGS: The vertebral body heights are maintained. The craniocervical junction is intact. The atlanto-dens interval is maintained. The dens is intact. There is no spondylolisthesis. Multilevel cervical spondylosis and degenerative disc disease. Straightening of the cervical lordosis. The unenhanced neck soft tissues are grossly unremarkable. The visualized lung apices are grossly clear. IMPRESSION: No acute fracture or subluxation of the cervical spine. Electronically signed by: Joe Lr MD 07/20/23 20:20 PM
--- NOTE | 2023-07-20 20:23 | CT Scan Report ---
Exam(s): CTA CHEST IV Amt: 114ML OPTIRAY 320 EXAM: CT Angiography Chest With Intravenous Contrast CLINICAL HISTORY: Reason for exam: PE. TECHNIQUE: Axial computed tomographic angiography images of the chest with intravenous contrast. CTDI is 28.5 mGy and DLP is 876.72 mGy-cm. Automated exposure control was utilized for the study. A dose lowering technique was utilized adhering to the principles of ALARA. MIP reconstructed images were created and reviewed. COMPARISON: No relevant prior studies available. FINDINGS: Pulmonary arteries: Unremarkable. No acute pulmonary embolism. Aorta: No acute findings. No thoracic aortic aneurysm. Lungs: Minimal patchy consolidation in the RIGHT upper and lower lobes, concerning for mild infiltrates/pneumonia. Pleural space: Unremarkable. No significant effusion. No pneumothorax. Heart: Unremarkable. No cardiomegaly. No significant pericardial effusion. No evidence of RV dysfunction. Bones/joints: No acute fracture. No dislocation. Soft tissues: Unremarkable. Lymph nodes: Unremarkable. No enlarged lymph nodes. IMPRESSION: 1. No acute pulmonary embolism. 2. Minimal patchy consolidation in the RIGHT upper and lower lobes, concerning for mild infiltrates/pneumonia. Electronically signed by: Joe Lr MD 07/20/23 20:22 PM
--- NOTE | 2023-07-20 20:27 | CT Scan Report ---
Exam(s): CT ABDOMEN + PELVIS With Contrast IV Amt: 114ML OPTIRAY 320 EXAM: CT Abdomen and Pelvis With Intravenous Contrast CLINICAL HISTORY: Reason for exam: abd pain. TECHNIQUE: Axial computed tomography images of the abdomen and pelvis with intravenous contrast. CTDI is 27.74 mGy and DLP is 958.25 mGy-cm. Automated exposure control was utilized for the study. A dose lowering technique was utilized adhering to the principles of ALARA. CONTRAST: Patient received 114ML OPTIRAY 320 of IV contrast COMPARISON: No relevant prior studies available. FINDINGS: Lung bases: Unremarkable. No mass. No consolidation. ABDOMEN: Liver: Hepatic steatosis. Gallbladder and bile ducts: Unremarkable. No calcified stones. No ductal dilation. Pancreas: Unremarkable. No mass. No ductal dilation. Spleen: Unremarkable. No splenomegaly. Adrenals: Unremarkable. No mass. Kidneys and ureters: No hydronephrosis or delayed nephrogram. Nonobstructing 1 mm RIGHT mid pole renal stone. Stomach and bowel: Unremarkable. No acute diverticulitis. No bowel obstruction. No free air. PELVIS: Appendix: No findings to suggest acute appendicitis. Bladder: Lloyd catheter terminates in a decompressed urinary bladder. Reproductive: Unremarkable as visualized. ABDOMEN and PELVIS: Intraperitoneal space: See above. Bones/joints: Degenerative changes of the spine. No acute fracture. No dislocation. Soft tissues: Unremarkable. Vasculature: Atherosclerotic changes of the aorta. No abdominal aortic aneurysm. Lymph nodes: Unremarkable. No enlarged lymph nodes. IMPRESSION: 1. No acute diverticulitis. No bowel obstruction. No free air. 2. Hepatic steatosis. 3. Lloyd catheter terminates in a decompressed urinary bladder. 4. Nonobstructing 1 mm RIGHT mid pole renal stone. Electronically signed by: Joe Lr MD 07/20/23 20:26 PM
[2023-07-20] MEDS ORDERED: DOXYCYCLINE HYCLATE 100 MG in DEXTROSE 5% MINI-B 100 ML IV STA (20:43)
[2023-07-20] MEDS ORDERED: cefTRIAXone SODIUM 2,000 MG/50 ML BAG IV STA (20:43)
[2023-07-20] MEDS ORDERED: POTASSIUM CHLORIDE CRTAB 20 MEQ TABCR PO STA (21:10)
[2023-07-20 21:14] LABS: INR 4.7 (0.9-1.1)
[2023-07-20] MEDS ORDERED: POTASSIUM ACETATE/NSS 10 MEQ/105 ML BAG IV SCH (21:15)
[2023-07-20 21:44] LABS: HCO3 VBG 43 mmol/L; Oxygen Saturation VBG 76.5 %; PCO2 VBG 57 mmHg (38-50); PO2 VBG 40 mmHg; pH VBG 7.49 (7.36-7.41)
[2023-07-20] MEDS: POTASSIUM CHLORIDE / WTR 10 MEQ/100 ML PLCT IV SCH ×2 (22:11→23:38)
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
[2023-07-21] MEDS ORDERED: ALBUTEROL HFA 8 GM INHALER INH PRN (00:28)
[2023-07-21] MEDS ORDERED: GLUCAGON FOR INJ 1 MG VIAL SQ PRN (00:28)
[2023-07-21] MEDS ORDERED: POLYETHYLENE (MIRALAX) 17 GM PACK PO PRN (00:28)
[2023-07-21] MEDS ORDERED: ACETAMINOPHEN 325 MG TAB PO PRN (00:28)
[2023-07-21] MEDS ORDERED: BENZONATATE 100 MG CAPSULE PO PRN (00:28)
[2023-07-21] MEDS ORDERED: SENNA 8.6 MG TAB PO PRN (00:28)
[2023-07-21] MEDS ORDERED: DEXTROSE 50% 50 ML SYRINGE IV PRN (00:28)
[2023-07-21] MEDS ORDERED: MICONAZOLE NITRATE POWDER 85 GM EXT PRN (00:28)
[2023-07-21] MEDS ORDERED: GLUCOSE 10 TAB/TUBE PO PRN (00:28)
[2023-07-21] MEDS ORDERED: SODIUM CHLORIDE 0.9% 1,000 ML IV SCH (00:28)
[2023-07-21] MEDS ORDERED: LORazepam 0.5 MG TAB PO PRN (00:28)
[2023-07-21] MEDS ORDERED: GLUCOSE 40% GEL 15 GM TUBE PO PRN (00:28)
[2023-07-21] MEDS ORDERED: hydrOXYzine HCl 25 MG TAB PO PRN (00:28)
[2023-07-21] MEDS ORDERED: PROMETHAZINE HCL 25 MG TAB PO PRN (00:28)
[2023-07-21] MEDS ORDERED: NITROGLYCERIN SL 0.4 MG/TAB TAB SL PRN ×2 (00:28)
[2023-07-21] MEDS ORDERED: LANTUS PER UNIT CHARGE SQ SCH (00:50)
[2023-07-21] MEDS ORDERED: POTASSIUM CHLORIDE CRTAB 20 MEQ TABCR PO STA (00:52)
[2023-07-21] MEDS ORDERED: LEVALBUTEROL 1.25 MG/3 ML NEB NEB PRN (01:15)
[2023-07-21] MEDS ORDERED: PHARMACY GLYCEMIC MGMT CONSULT PRN (01:17)
[2023-07-21] MEDS ORDERED: INSULIN ASPART PER UNIT CHARGE SC STA (01:22)
[2023-07-21] MEDS ORDERED: INSULIN HUMAN REGULAR PER UNIT 5 UNITS in SYRINGE 4.95 ML IV ONE (01:30)
[2023-07-21] MEDS: CYCLOBENZAPRINE HCL 10 MG TAB PO PRN ×3 (01:54→20:58)
[2023-07-21] MEDS: PANTOprazole 40 MG TAB PO SCH (05:38)
[2023-07-21] MEDS ORDERED: INSULIN ASPART PER UNIT CHARGE SC SCH ×2 (06:00→14:30)
[2023-07-21] MEDS ORDERED: INSULIN ASPART PER UNIT CHARGE SC ONE (06:00)
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
[2023-07-21 07:37] LABS: Prothrombin Time 30.3 Seconds (9.0-12.0)
[2023-07-21] MEDS: IPRATROPIUM BROMIDE NEB SOLN 0.02% 2.5 ML VIAL INH SCH ×4 (07:37→19:15)
[2023-07-21] MEDS: LEVALBUTEROL 1.25 MG/3 ML NEB NEB SCH ×4 (07:37→19:14)
[2023-07-21 08:35] LABS: Magnesium 1.5 mg/dl (1.7-2.4); Potassium 3.2 mmol/L (3.5-5.1)
[2023-07-21 08:46] LABS: BUN Creatinine Ratio 18.8 (10-20); Creatinine Clr Calc Pharmacy 129.6 ml/min; Est GFR (Non-African American) 70.8 ml/min
--- NOTE | 2023-07-21 08:49 | Electrocardiogram Report ---
Test Reason : Blood Pressure : / mmHG Vent. Rate : 095 BPM Atrial Rate : 095 BPM P-R Int : 162 ms QRS Dur : 116 ms QT Int : 368 ms P-R-T Axes : 025 040 113 degrees QTc Int : 462 ms Normal sinus rhythm Incomplete right bundle branch block Marked ST abnormality, possible lateral subendocardial injury Abnormal ECG When compared with ECG of 22-MAY-2023 13:34, Nonspecific T wave abnormality now evident in Inferior leads T wave inversion now evident in Anterior leads Confirmed by Luan Escalante ([id number]) on 07/21/2023 8:48:48 AM Referred By: REFERRED SELF Confirmed By:Mark Escalante
--- NOTE | 2023-07-21 08:55 | Electrocardiogram Report ---
Test Reason : Blood Pressure : / mmHG Vent. Rate : 085 BPM Atrial Rate : 085 BPM P-R Int : 174 ms QRS Dur : 118 ms QT Int : 422 ms P-R-T Axes : 000 036 087 degrees QTc Int : 502 ms Poor data quality, interpretation may be adversely affected Normal sinus rhythm Incomplete right bundle branch block Abnormal ECG When compared with ECG of 20-JUL-2023 16:56, (unconfirmed) No significant change was found Confirmed by Luan Escalante ([id number]) on 07/21/2023 8:55:16 AM Referred By: REFERRED SELF Confirmed By:Mark Escalante
[2023-07-21] MEDS: FLUTICASONE PROPIONATE NA SPR 16 GM BTL SCH (08:56)
[2023-07-21] MEDS: FLUTICASONE FUROATE 200MCG 14 PUFFS/INHALER INH SCH (08:56)
[2023-07-21] MEDS: UMECLIDINIUM/VILANTEROL 62.5/25MCG 7 PUFFS/INHALER INH SCH (08:56)
[2023-07-21] MEDS: TAMSULOSIN HCL 0.4 MG CAP PO SCH (08:58)
[2023-07-21] MEDS: ASPIRIN 81 MG ECTAB PO SCH (08:58)
[2023-07-21] MEDS: ADVANCED PROBIOTIC 1250 MG CAPSULE PO SCH (08:58)
[2023-07-21] MEDS: ISOSORBIDE DINITRATE 10 MG TAB PO SCH (08:58)
[2023-07-21] MEDS: SPIRONOLACTONE 25 MG TAB PO SCH (08:58)
[2023-07-21] MEDS: FERROUS SULFATE 325 MG TAB PO SCH (08:58)
[2023-07-21] MEDS: POTASSIUM CHLORIDE CRTAB 20 MEQ TABCR PO SCH ×4 (08:58→17:40)
[2023-07-21] MEDS: TORSEMIDE 10 MG TAB PO SCH (08:58)
[2023-07-21] MEDS: GABAPENTIN 800 MG TAB PO SCH ×3 (08:59→20:54)
[2023-07-21] MEDS: DOCUSATE SODIUM 100 MG CAP PO SCH ×2 (08:59→20:54)
[2023-07-21] MEDS: guaiFENesin 600 MG TABCR PO SCH ×2 (08:59→20:54)
[2023-07-21] MEDS: FAMOTIDINE 20 MG TAB PO SCH (08:59)
[2023-07-21] MEDS: DULoxetine HCL 60 MG CAP PO SCH (08:59)
[2023-07-21] MEDS: FINASTERIDE 5 MG TAB PO SCH (08:59)
[2023-07-21] MEDS: FOLIC ACID 1 MG TAB PO SCH (08:59)
[2023-07-21] MEDS: CHOLECALCIFEROL 5,000 UNITS 125 MCG TAB PO SCH (08:59)
[2023-07-21] MEDS ORDERED: INFLUENZA VIRUS QUADRIVALENT VACCINE (IIV4) 0.5 ML SYR IM ONE (09:00)
[2023-07-21] MEDS: NICOTINE 21 MG/24 HR TDSY TD SCH (09:00)
[2023-07-21] MEDS ORDERED: methylPREDNISolone 40 MG in SYRINGE 0 ML IV SCH (09:00)
[2023-07-21] MEDS: MAGNESIUM OXIDE 400 MG TAB PO SCH (09:00)
[2023-07-21] MEDS: DICLOFENAC SOD 1% GEL 100 GM TUBE EXT SCH ×2 (09:00→21:00)
[2023-07-21] MEDS: METOPROLOL SUCC 25MG EXT REL TAB PO SCH ×2 (09:00→20:54)
[2023-07-21] MEDS ORDERED: XOPENEX/ATROVENT 1.25mg/0.5MG NEB COMBO NEB SCH (09:00)
[2023-07-21] MEDS ORDERED: NON-FORMULARY MEDICATION (Budesonide-Glycopyr-Formoterol [Breztri Aerosphere] 160-9-4.8 mc INH SCH (09:00)
[2023-07-21] MEDS: POLYETHYLENE (MIRALAX) 17 GM PACK PO SCH (09:01)
[2023-07-21] MEDS: buprenorphine HCL 8 MG SUBL PO SCH ×3 (09:02→20:54)
[2023-07-21] MEDS: DOXYCYCLINE HYCLATE 100 MG in DEXTROSE 5% MINI-B 100 ML IV SCH ×2 (09:11→21:07)
[2023-07-21] MEDS ORDERED: LANTUS PER UNIT CHARGE SQ ONE (10:15)
[2023-07-21] MEDS: INSULIN ASPART PER UNIT CHARGE SC SCH ×4 (10:24→20:32)
[2023-07-21] MEDS: MAGNESIUM SULFATE / D5W 1 GM/100 ML BAG IV SCH ×4 (10:25→17:33)
[2023-07-21] MEDS ORDERED: MAGNESIUM SULFATE / D5W 1 GM/100 ML BAG IV SCH (11:30)
[2023-07-21] MEDS: ACETAMINOPHEN 1,000 MG/100 ML VIAL IV PRN ×2 (12:29→20:51)
[2023-07-21] MEDS ORDERED: EUCERIN CR 120 GM JAR EXT PRN (13:31)
--- NOTE | 2023-07-21 14:01 | Pharmacy Report ---
Pharmacy Glycemic Short Note 2 - Date of Service July 21, 2023 - Glycemic Short BSG Results (Last 24 hours): 07/20/23 07/21/23 07/21/23 17:11 00:38 00:42 Glucose 222 H POC Glucose 461 H* 437 H* 07/21/23 07/21/23 07/21/23 05:40 05:42 06:35 Glucose 412 H* POC Glucose 418 H* 459 H* 07/21/23 11:34 Glucose POC Glucose 425 H* OUTPATIENT ANTIDIABETIC REGIMEN: * Lantus 50 units HS * Novolog 10 units with meals ASSESSMENT: * Mr Milner is a 53 y/o M with a PMH of T2DM who presents with syncope with SOB. * Patient received Solu-Medrol 125 mg IV x 1 on 07/20 @ 1818. * BSG on 07/21 overnight was 461 for which patient received 30 units of Lantus and 5 units of IV insulin. * Patient received 25 units of Novolog at 0600 for BSG of 465. * Patient's was covered for breakfast around 1000 but BSG was drawn early at 1130 (425). * Due to close Novolog administration and BSG check, loosen CF to 20 to prevent stacking. BSG to be checked at 1430 to ensure BSGs are trending down. * In terms of steroids, patient received Solu-Medrol 40 mg IV x 1 this AM and was then changed to prednisone 40 mg PO daily starting 07/22. * For Lantus, will start 30 units SQ BID. PLAN FOR INPATIENT GLYCEMIC CONTROL: * Hold outpatient oral diabetes medications * Basal insulin * Lantus 30 units SQ BID * Bolus insulin * NovoLog per scale ACHS or Q6hrs while NPO * Goal Range: Low 120 mg/dL - High 150 mg/dL * Correction Factor: 10 mg/dL/unit * Nutritional / Prandial insulin per carb ratio of 1 unit per 3 grams CHO consumed
--- NOTE | 2023-07-21 16:53 | Hospitalist Progress Note ---
Date of Service July 21, 2023 Assessment & Plan (1) Syncope: Plan: 53-year-old male with past medical significant for COPD, morbid obesity, type 2 diabetes, chronic diastolic heart failure, hypertension, hyperlipidemia, history of PE on Coumadin, mood disorder, medication noncompliance, current active smoker, chronic opioid abuse, chronic indwelling Lloyd catheter, history of subdural hematoma, history of subarachnoid hemorrhage, history of iron deficiency anemia, depression with anxiety, venous insufficiency, multiple recurrent admissions presents with syncope and shortness of breath. Syncope --ECHO: Study was technically limited. Left ventricle is grossly normal size. Mild concentric LVH. EF 60 to 65%. Poorly visualized valvular anatomy --CT Head:No acute intracranial hemorrhage, midline shift, or mass effect. Check orthostatics Prior LINQ interrogation showed no arrhythmias Appreciate cardiology input Loop recorder interrogation pending Pneumonia Acute on chronic COPD exacerbation Acute on Chronic respiratory failure with hypoxia and hypercapnia --CTA:No acute pulmonary embolism. Minimal patchy consolidation in the RIGHT upper and lower lobes, concerning for mild infiltrates/pneumonia. Ongoing tobacco abuse--counseled to quit smoking Continue IV Rocephin and doxycycline Continue Nebs Wean supplemental oxygen to maintain saturations 88 to 92% Continue home inhalers Recurrent UTI likely related to Catheter Chronic indwelling Lloyd catheter Lloyd catheter was changed while in ED Noncompliant with urology follow-up as outpatient Urine culture pending Continue IV Rocephin for now Hypokalemia Replace and monitor Fall Due to syncope Fall precautions PT OT DM II Continue Insulin sliding scale, Lantus Monitor BGs Chronic diastolic CHF No signs of exacerbation Continue home diuretics Monitor for volume overload History of PE INR supratherapeutic we will hold Coumadin Follow PT/INR:4.7>3.0 Tobacco abuse counseled on multiple occasions to quit smoking Chronic pain Continues home pain medications Hypertension On Imdur and metoprolol and diuretics monitor Hyperlipidemia On statin BPH On Proscar and on Flomax Anxiety/ depression On duloxetine, Ativan as needed hydroxyzine as needed Morbid obesity BMI 59 DVT prophylaxis INR supratherapeutic SCDs Code Status Full code Admission and Anticipated Discharge Date Admission Date: July 20, 2023 Subjective Patient is seen and examined at bedside States having cough and intermittent dizziness Denies any chest pain, nausea, vomiting, abdominal pain No other complaints Review of Systems Review of Systems: All systems reviewed & are unremarkable except as noted in Subjective Physical Exam Physical Exam: Physical Exam: Vitals signs as noted above General Appearance:Morbidly Obese, no apparent distress Head: normocephalic, Atraumatic Eyes: normal inspection, EOMI Neck: supple, Trachea midline Respiratory/Chest: Decreased coarse breath sounds, + Rhonchi/wheeze, No accessory muscle use Cardiovascular: S1, S2, No murmur Abdomen/GI:Soft, Non tender, Bowel sounds present Extremities/Musculoskeletal:normal inspection, chronic venous stasis changes, trace pedal edema Neurologic/Psych:AAOX3, grossly no focal neurological deficits Skin: normal color, warm Results & Data Results & Data Vital Signs (Past 12 Hours) Vital Signs Temp Pulse Pulse Resp BP Pulse Ox O2 Del Method 07/21/23 15:13 87 18 92 Nasal Cannula 07/21/23 15:46 36.6 C 89 18 116/73 90 Nasal Cannula 07/21/23 11:15 36.8 C 94 H 20 131/68 90 Nasal Cannula 07/21/23 06:40 87 07/21/23 10:55 92 H 18 87 L Room Air 07/21/23 08:40 Nasal Cannula 07/21/23 07:28 36.5 C 81 18 144/77 H 91 Nasal Cannula 07/21/23 07:38 84 18 90 Nasal Cannula O2 Flow Rate 07/21/23 15:13 2 07/21/23 15:46 2 07/21/23 11:15 2 07/21/23 06:40 07/21/23 10:55 07/21/23 08:40 4 07/21/23 07:28 4 07/21/23 07:38 4 Laboratory Results Short CBC 07/20/23 Range/Units 17:11 WBC 14.44 H (4.8-10.8) K/ul Hgb 13.7 L (14.0-18.0) g/dl Hct 41.0 L (42.0-52.0) % Plt Count 314 (130-400) K/uL BMP 07/20/23 07/21/23 17:11 06:35 Sodium 133 L 131 L Potassium 2.6 L 3.2 L D Chloride 85 L 89 L Carbon Dioxide 37 H 29 BUN 22 22 Creatinine 1.36 1.17 Glucose 222 H 412 H* Calcium 9.4 9.0 Liver Function 07/20/23 Range/Units 17:11 Total Bilirubin 0.9 (0.2-1.0) mg/dl AST 18 (13-39) U/L ALT 14 (7-52) U/L Alkaline Phosphatase 107 H (34-104) U/L Albumin 3.6 (3.4-5.0) gm/dl Urine 07/20/23 Range/Units 19:15 Urine Color Yellow Urine Appearance Turbid A (Clear) Urine pH 7.0 (4.5-7.5) Ur Specific [place] 1.011 (1.000-1.030) Urine Protein 2+ H (Negative) Urine Glucose (UA) Negative (Negative)
[2023-07-21] MEDS: BUDESONIDE 0.5 MG/2 ML VIAL (PULMICORT) NEB SCH (19:15)
[2023-07-21 19:33] LABS: Troponin I High Sensitivity 3.4 pg/ml (0-20)
[2023-07-21] MEDS: cefTRIAXone SODIUM 2,000 MG in DEXTROSE 5 % MINI-B 50 ML IV SCH (20:29)
[2023-07-21] MEDS: LANTUS PER UNIT CHARGE SC SCH (20:32)
[2023-07-21 20:53] LABS: BUN Creatinine Ratio 14.6 (10-20); Calcium 9.1 mg/dl (8.6-10.3); Creatinine Clr Calc Pharmacy 100.4 ml/min; Est GFR (African American) 60.2 ml/min; Potassium 3.2 mmol/L (3.5-5.1)
[2023-07-21] MEDS: ATORVASTATIN 40 MG TAB PO SCH (20:54)
[2023-07-21] MEDS ORDERED: LANTUS PER UNIT CHARGE SC SCH (21:00)
[2023-07-22] MEDS ORDERED: INSULIN ASPART PER UNIT CHARGE SC SCH (02:00)
[2023-07-22] MEDS: PANTOprazole 40 MG TAB PO SCH (05:18)
[2023-07-22 06:47] LABS: Hematocrit (blood only) 39.6 % (42.0-52.0); Hemoglobin 13.1 g/dl (14.0-18.0); Mean Corpuscular Hemoglobin 24.8 pg (25.0-34.0); Mean Corpuscular Hgb Conc 33.1 g/dL (32.0-36.0); Mean Platelet Volume 10.3 fL (9.4-12.4); Platelet Count 308 K/uL (130-400); RDW Coefficient of Variation 20.5 % (11.5-14.5); RDW Standard Deviation 53.4 fL (36.4-46.3); Red Blood Count 5.28 M/uL (4.70-6.10)
[2023-07-22 07:11] LABS: BUN Creatinine Ratio 21.8 (10-20); Calcium 9.3 mg/dl (8.6-10.3); Creatinine Clr Calc Pharmacy 138.7 ml/min; Est GFR (African American) 88.4 ml/min; Est GFR (Non-African American) 76.2 ml/min; Magnesium 2.1 mg/dl (1.7-2.4); Potassium 3.2 mmol/L (3.5-5.1)
[2023-07-22] MEDS: LEVALBUTEROL 1.25 MG/3 ML NEB NEB SCH ×4 (07:12→19:20)
[2023-07-22] MEDS: BUDESONIDE 0.5 MG/2 ML VIAL (PULMICORT) NEB SCH ×2 (07:12→19:20)
[2023-07-22] MEDS: IPRATROPIUM BROMIDE NEB SOLN 0.02% 2.5 ML VIAL INH SCH ×4 (07:12→19:20)
[2023-07-22 07:39] LABS: INR 2.3 (0.9-1.1); Prothrombin Time 23.5 Seconds (9.0-12.0)
[2023-07-22] MEDS: FLUTICASONE PROPIONATE NA SPR 16 GM BTL SCH (08:02)
[2023-07-22] MEDS: UMECLIDINIUM/VILANTEROL 62.5/25MCG 7 PUFFS/INHALER INH SCH (08:02)
[2023-07-22] MEDS: FLUTICASONE FUROATE 200MCG 14 PUFFS/INHALER INH SCH (08:02)
[2023-07-22] MEDS: buprenorphine HCL 8 MG SUBL PO SCH ×3 (08:02→21:43)
[2023-07-22] MEDS: DICLOFENAC SOD 1% GEL 100 GM TUBE EXT SCH ×2 (08:03→21:44)
[2023-07-22] MEDS: guaiFENesin 600 MG TABCR PO SCH ×3 (08:03→21:47)
[2023-07-22] MEDS: DOCUSATE SODIUM 100 MG CAP PO SCH ×2 (08:04→21:43)
[2023-07-22] MEDS: ISOSORBIDE DINITRATE 10 MG TAB PO SCH (08:04)
[2023-07-22] MEDS: predniSONE 20 MG TAB PO SCH (08:04)
[2023-07-22] MEDS: GABAPENTIN 800 MG TAB PO SCH ×3 (08:04→21:42)
[2023-07-22] MEDS: TAMSULOSIN HCL 0.4 MG CAP PO SCH (08:04)
[2023-07-22] MEDS: ASPIRIN 81 MG ECTAB PO SCH (08:05)
[2023-07-22] MEDS: FOLIC ACID 1 MG TAB PO SCH (08:05)
[2023-07-22] MEDS: ADVANCED PROBIOTIC 1250 MG CAPSULE PO SCH (08:05)
[2023-07-22] MEDS: FAMOTIDINE 20 MG TAB PO SCH (08:05)
[2023-07-22] MEDS: FERROUS SULFATE 325 MG TAB PO SCH (08:05)
[2023-07-22] MEDS: MAGNESIUM OXIDE 400 MG TAB PO SCH (08:05)
[2023-07-22] MEDS: SPIRONOLACTONE 25 MG TAB PO SCH (08:06)
[2023-07-22] MEDS: CHOLECALCIFEROL 5,000 UNITS 125 MCG TAB PO SCH (08:06)
[2023-07-22] MEDS: TORSEMIDE 10 MG TAB PO SCH (08:06)
[2023-07-22] MEDS: FINASTERIDE 5 MG TAB PO SCH (08:06)
[2023-07-22] MEDS: POLYETHYLENE (MIRALAX) 17 GM PACK PO SCH (08:07)
[2023-07-22] MEDS: NICOTINE 21 MG/24 HR TDSY TD SCH (08:07)
[2023-07-22] MEDS: ACETAMINOPHEN 1,000 MG/100 ML VIAL IV PRN ×2 (08:24→21:37)
[2023-07-22] MEDS: CYCLOBENZAPRINE HCL 10 MG TAB PO PRN ×2 (08:25→21:43)
[2023-07-22] MEDS: POTASSIUM CHLORIDE CRTAB 20 MEQ TABCR PO SCH ×2 (08:25→17:32)
[2023-07-22] MEDS: DOXYCYCLINE HYCLATE 100 MG in DEXTROSE 5% MINI-B 100 ML IV SCH (08:26)
[2023-07-22] MEDS: INSULIN ASPART PER UNIT CHARGE SC SCH ×4 (08:27→21:34)
[2023-07-22] MEDS: INSULIN HUMAN NPH SC SCH (08:27)
[2023-07-22] MEDS: LANTUS PER UNIT CHARGE SC SCH (08:28)
[2023-07-22] MEDS ORDERED: SODIUM CHLORIDE 0.65% NA SOLN 45 ML (OCEAN) ONE (08:29)
[2023-07-22] MEDS: DULoxetine HCL 60 MG CAP PO SCH (09:46)
[2023-07-22] MEDS: METOPROLOL SUCC 25MG EXT REL TAB PO SCH ×2 (09:46→21:43)
--- NOTE | 2023-07-22 14:28 | Pharmacy Report ---
Pharmacy Glycemic Short Note 2 - Date of Service July 22, 2023 - Glycemic Short BSG Results (Last 24 hours): 07/21/23 07/21/23 07/21/23 14:49 14:53 16:18 Glucose POC Glucose 465 H* 479 H* 401 H* 07/21/23 07/21/23 07/21/23 16:19 18:14 20:20 Glucose 359 H* POC Glucose 396 H* 310 H* 07/22/23 07/22/23 07/22/23 01:35 06:23 07:29 Glucose 179 H POC Glucose 247 H 170 H 07/22/23 11:33 Glucose POC Glucose 289 H OUTPATIENT ANTIDIABETIC REGIMEN: * Lantus 50 units HS * Novolog 10 units with meals ASSESSMENT: 07/22/23 * BSG with dinner yesterday was 396 and at bedtime was 310 mg/dL. An 0200 check showed BSG of 247 mg/dL. * Patient received 318 units of insulin (90 units of basal and 228 units of bolus). * Fasting today is 170 mg/dL. * Patient was transitioned to prednisone 40 mg PO daily today. * For basal insulin, will increase to Lantus 40 units BID since fasting >140 mg/dL + add NPH 45 units (to help cover prednisone). * Tighten CR more. BACKGROUND * Mr Milner is a 53 y/o M with a PMH of T2DM who presents with syncope with SOB. * Patient received Solu-Medrol 125 mg IV x 1 on 07/20 @ 1818. * BSG on 07/21 overnight was 461 for which patient received 30 units of Lantus and 5 units of IV insulin. * Patient received 25 units of Novolog at 0600 for BSG of 465. * Patient's was covered for breakfast around 1000 but BSG was drawn early at 1130 (425). * Due to close Novolog administration and BSG check, loosen CF to 20 to prevent stacking. BSG to be checked at 1430 to ensure BSGs are trending down. * In terms of steroids, patient received Solu-Medrol 40 mg IV x 1 this AM and was then changed to prednisone 40 mg PO daily starting 07/22. * For Lantus, will start 30 units SQ BID. PLAN FOR INPATIENT GLYCEMIC CONTROL: * Hold outpatient oral diabetes medications * Basal insulin * Lantus 40 units SQ BID * Bolus insulin * NovoLog per scale ACHS or Q6hrs while NPO * Goal Range: Low 110 mg/dL - High 140 mg/dL * Correction Factor: 8 mg/dL/unit * Nutritional / Prandial insulin per carb ratio of 1 unit per 1 grams CHO consumed
[2023-07-22] MEDS ORDERED: WARFARIN SOD 5 MG TAB PO SCH (16:00)
--- NOTE | 2023-07-22 16:31 | Electrocardiogram Report ---
Test Reason : Blood Pressure : / mmHG Vent. Rate : 079 BPM Atrial Rate : 079 BPM P-R Int : 170 ms QRS Dur : 118 ms QT Int : 408 ms P-R-T Axes : 069 036 090 degrees QTc Int : 467 ms Normal sinus rhythm Incomplete right bundle branch block Prolonged QT Abnormal ECG When compared with ECG of 21-JUL-2023 06:11, No significant change was found Confirmed by Luan Escalante ([id number]) on 07/22/2023 4:30:29 PM Referred By: REFERRED SELF Confirmed By:Mark Escalante
[2023-07-22] MEDS: LINEZOLID 600 MG TAB PO SCH ×2 (17:32→21:42)
--- NOTE | 2023-07-22 17:55 | Hospitalist Progress Note ---
Date of Service July 22, 2023 Assessment & Plan (1) Syncope: Plan: 53-year-old male with past medical significant for COPD, morbid obesity, type 2 diabetes, chronic diastolic heart failure, hypertension, hyperlipidemia, history of PE on Coumadin, mood disorder, medication noncompliance, current active smoker, chronic opioid abuse, chronic indwelling Lloyd catheter, history of subdural hematoma, history of subarachnoid hemorrhage, history of iron deficien cy anemia, depression with anxiety, venous insufficiency, multiple recurrent admissions presents with syncope and shortness of breath. Syncope --ECHO: Study was technically limited. Left ventricle is grossly normal size. Mild concentric LVH. EF 60 to 65%. Poorly visualized valvular anatomy --CT Head:No acute intracranial hemorrhage, midline shift, or mass effect. Check orthostatics Prior LINQ interrogation showed no arrhythmias Appreciate cardiology input Loop recorder interrogation done Needs follow-up with cardiology upon discharge Pneumonia Acute on chronic COPD exacerbation Acute on Chronic respiratory failure with hypoxia and hypercapnia --CTA:No acute pulmonary embolism. Minimal patchy consolidation in the RIGHT upper and lower lobes, concerning for mild infiltrates/pneumonia. Ongoing tobacco abuse--counseled to quit smoking Continue IV Rocephin and doxycycline Continue Nebs Wean supplemental oxygen to maintain saturations 88 to 92% Continue home inhalers Continue current management Recurrent UTI likely related to Catheter Chronic indwelling Lloyd catheter Lloyd catheter was changed while in ED Noncompliant with urology follow-up as outpatient Urine culture growing MRSA, probable Enterococcus On IV Rocephin as above, added Zyvox Hypokalemia Replace and monitor Fall Due to syncope Fall precautions PT OT DM II Continue Insulin sliding scale, Lantus Monitor BGs Chronic diastolic CHF No signs of exacerbation Continue home diuretics Monitor for volume overload History of PE INR supratherapeutic on presentation Monitor PT/INR:4.7>3.0>>2.3 Restarted Coumadin Tobacco abuse counseled on multiple occasions to quit smoking Chronic pain Continues home pain medications Hypertension On Imdur and metoprolol and diuretics monitor Hyperlipidemia On statin BPH On Proscar and on Flomax Anxiety/ depression On duloxetine, Ativan as needed hydroxyzine as needed Morbid obesity BMI 59 DVT prophylaxis Coumadin SCDs Code Status Full code Admission and Anticipated Discharge Date Admission Date: July 20, 2023 Subjective Patient is seen and examined at bedside Cough, dyspnea about the same as yesterday No new complaints Urine culture growing MRSA, probable Enterococcus Denies any chest pain, nausea, vomiting, abdominal pain Review of Systems Review of Systems: All systems reviewed & are unremarkable except as noted in Subjective Physical Exam Physical Exam: Physical Exam: Vitals signs as noted above General Appearance:Morbidly Obese, no apparent distress Head: normocephalic, Atraumatic Eyes: normal inspection, EOMI Neck: supple, Trachea midline Respiratory/Chest: Decreased coarse breath sounds, + Rhonchi/wheeze, No accessory muscle use Cardiovascular: S1, S2, No murmur Abdomen/GI:Soft, Non tender, Bowel sounds present Extremities/Musculoskeletal:normal inspection, chronic venous stasis changes, trace pedal edema Neurologic/Psych:AAOX3, grossly no focal neurological deficits Skin: normal color, warm Results & Data Results & Data Vital Signs (Past 12 Hours) Vital Signs Temp Pulse Resp BP Pulse Ox Pulse Ox Pulse Ox 07/22/23 16:16 36.5 C 59 L 21 147/71 H 94 07/22/23 15:16 76 18 98 07/22/23 11:35 36.6 C 107 H 21 101/63 91 07/22/23 11:24 94 94 07/22/23 11:21 78 20 94 07/22/23 08:00 07/22/23 07:48 36.9 C 81 21 137/77 95 07/22/23 07:12 72 20 96 O2 Del Method O2 Flow Rate O2 Flow Rate O2 Flow Rate FiO2 07/22/23 16:16 Room Air 07/22/23 15:16 Room Air 21 07/22/23 11:35 Room Air 07/22/23 11:24 0 0 07/22/23 11:21 Room Air 07/22/23 08:00 Nasal Cannula 2 07/22/23 07:48 Room Air 07/22/23 07:12 Nasal Cannula 2 Laboratory Results Short CBC 07/22/23 Range/Units 06:23 WBC 17.50 H (4.8-10.8) K/ul Hgb 13.1 L (14.0-18.0) g/dl Hct 39.6 L (42.0-52.0) % Plt Count 308 (130-400) K/uL BMP 07/21/23 07/21/23 07/22/23 18:14 18:14 06:23 Sodium 132 L 137 Potassium 3.2 L 3.2 L 3.2 L Chloride 89 L 95 L Carbon Dioxide 29 35 H BUN 22 24 H Creatinine 1.51 H D 1.10 D Glucose 359 H* 179 H Calcium 9.1 9.3
[2023-07-22] MEDS ORDERED: LANTUS PER UNIT CHARGE SC SCH (21:00)
[2023-07-22] MEDS: ATORVASTATIN 40 MG TAB PO SCH (21:42)
[2023-07-22] MEDS: DOXYCYCLINE HYCLATE 100 MG CAP PO SCH (21:43)
[2023-07-22] MEDS: cefTRIAXone SODIUM 2,000 MG in DEXTROSE 5 % MINI-B 50 ML IV SCH (21:48)
[2023-07-23] MEDS: INSULIN ASPART PER UNIT CHARGE SC SCH ×5 (00:41→21:01)
[2023-07-23 06:56] LABS: Hematocrit (blood only) 41.6 % (42.0-52.0); Hemoglobin 12.9 g/dl (14.0-18.0); Mean Corpuscular Hemoglobin 24.3 pg (25.0-34.0); Mean Corpuscular Volume 78.3 fL (80.0-100.0); Mean Platelet Volume 10.2 fL (9.4-12.4); Platelet Count 302 K/uL (130-400); RDW Coefficient of Variation 20.8 % (11.5-14.5); Red Blood Count 5.31 M/uL (4.70-6.10); White Blood Count 15.31 K/ul (4.8-10.8)
[2023-07-23] MEDS: PANTOprazole 40 MG TAB PO SCH ×2 (06:56→08:19)
[2023-07-23] MEDS: BUDESONIDE 0.5 MG/2 ML VIAL (PULMICORT) NEB SCH ×2 (07:10→19:28)
[2023-07-23] MEDS: IPRATROPIUM BROMIDE NEB SOLN 0.02% 2.5 ML VIAL INH SCH ×4 (07:11→19:28)
[2023-07-23] MEDS: LEVALBUTEROL 1.25 MG/3 ML NEB NEB SCH ×4 (07:11→19:28)
[2023-07-23] MEDS: CARBOHYDRATES FOR HYPOGLYCEMIA PO PRN ×2 (07:13→07:32)
[2023-07-23 07:15] LABS: INR 1.8 (0.9-1.1); Prothrombin Time 19.3 Seconds (9.0-12.0)
[2023-07-23 07:21] LABS: BUN Creatinine Ratio 22.2 (10-20); Calcium 9.6 mg/dl (8.6-10.3); Creatinine Clr Calc Pharmacy 129.7 ml/min; Est GFR (Non-African American) 70.8 ml/min
[2023-07-23] MEDS: ACETAMINOPHEN 1,000 MG/100 ML VIAL IV PRN (08:18)
[2023-07-23] MEDS: POTASSIUM CHLORIDE CRTAB 20 MEQ TABCR PO SCH ×2 (08:20→18:16)
[2023-07-23] MEDS: FLUTICASONE FUROATE 200MCG 14 PUFFS/INHALER INH SCH (08:20)
[2023-07-23] MEDS: guaiFENesin 600 MG TABCR PO SCH ×2 (08:20→20:34)
[2023-07-23] MEDS: UMECLIDINIUM/VILANTEROL 62.5/25MCG 7 PUFFS/INHALER INH SCH (08:20)
[2023-07-23] MEDS: DULoxetine HCL 60 MG CAP PO SCH (08:21)
[2023-07-23] MEDS: LINEZOLID 600 MG TAB PO SCH ×2 (08:21→20:35)
[2023-07-23] MEDS: POLYETHYLENE (MIRALAX) 17 GM PACK PO SCH (08:21)
[2023-07-23] MEDS: METOPROLOL SUCC 25MG EXT REL TAB PO SCH ×2 (08:21→21:44)
[2023-07-23] MEDS: CYCLOBENZAPRINE HCL 10 MG TAB PO PRN ×2 (08:21→20:57)
[2023-07-23] MEDS: GABAPENTIN 800 MG TAB PO SCH ×3 (08:21→20:34)
[2023-07-23] MEDS: DOCUSATE SODIUM 100 MG CAP PO SCH ×2 (08:22→20:34)
[2023-07-23] MEDS: FAMOTIDINE 20 MG TAB PO SCH (08:22)
[2023-07-23] MEDS: CHOLECALCIFEROL 5,000 UNITS 125 MCG TAB PO SCH (08:22)
[2023-07-23] MEDS: predniSONE 20 MG TAB PO SCH (08:22)
[2023-07-23] MEDS: SPIRONOLACTONE 25 MG TAB PO SCH (08:22)
[2023-07-23] MEDS: DOXYCYCLINE HYCLATE 100 MG CAP PO SCH ×2 (08:22→21:44)
[2023-07-23] MEDS: FINASTERIDE 5 MG TAB PO SCH (08:23)
[2023-07-23] MEDS: ADVANCED PROBIOTIC 1250 MG CAPSULE PO SCH (08:23)
[2023-07-23] MEDS: FERROUS SULFATE 325 MG TAB PO SCH (08:23)
[2023-07-23] MEDS: FOLIC ACID 1 MG TAB PO SCH (08:23)
[2023-07-23] MEDS: ISOSORBIDE DINITRATE 10 MG TAB PO SCH (08:23)
[2023-07-23] MEDS: NICOTINE 21 MG/24 HR TDSY TD SCH (08:24)
[2023-07-23] MEDS: ASPIRIN 81 MG ECTAB PO SCH (08:24)
[2023-07-23] MEDS: TORSEMIDE 10 MG TAB PO SCH (08:24)
[2023-07-23] MEDS: MAGNESIUM OXIDE 400 MG TAB PO SCH (08:24)
[2023-07-23] MEDS: TAMSULOSIN HCL 0.4 MG CAP PO SCH (08:24)
[2023-07-23] MEDS: buprenorphine HCL 8 MG SUBL PO SCH ×3 (08:25→20:58)
[2023-07-23] MEDS: FLUTICASONE PROPIONATE NA SPR 16 GM BTL SCH (08:26)
[2023-07-23] MEDS: INSULIN HUMAN NPH SC SCH (08:26)
[2023-07-23] MEDS: POTASSIUM CHLORIDE / WTR 10 MEQ/100 ML PLCT IV SCH ×2 (11:34→12:25)
[2023-07-23] MEDS: DICLOFENAC SOD 1% GEL 100 GM TUBE EXT SCH ×2 (12:24→21:02)
--- NOTE | 2023-07-23 12:46 | Pharmacy Report ---
Pharmacy Glycemic Short Note 2 - Date of Service July 23, 2023 - Glycemic Short BSG Results (Last 24 hours): 07/22/23 07/22/23 07/22/23 16:13 21:01 23:43 Glucose POC Glucose 126 H 103 H 203 H 07/23/23 07/23/23 07/23/23 06:25 07:09 07:10 Glucose 55 L POC Glucose 65 L* 69 L* 07/23/23 07/23/23 07/23/23 07:30 07:47 08:12 Glucose POC Glucose 65 L* 63 L* 105 H 07/23/23 11:11 Glucose POC Glucose 112 H OUTPATIENT ANTIDIABETIC REGIMEN: * Lantus 50 units HS * Novolog 10 units with meals ASSESSMENT: 07/23/23 * BSGs yesterday were [phone] mg/dL. Patient received 426 units of insulin (115 units of basal and 311 units of bolus). * Patient was hypoglycemic this AM due to excess basal. * Held AM Lantus. Continue NPH due to prednisone 40 mg daily. * Okay to give PM Lantus (will reflect 50% reduction). * Loosened Novolog since BSGs trended downwards. 07/22/23 * BSG with dinner yesterday was 396 and at bedtime was 310 mg/dL. An 0200 check showed BSG of 247 mg/dL. * Patient received 318 units of insulin (90 units of basal and 228 units of bolus). * Fasting today is 170 mg/dL. * Patient was transitioned to prednisone 40 mg PO daily today. * For basal insulin, will increase to Lantus 40 units BID since fasting >140 mg/dL + add NPH 45 units (to help cover prednisone). * Tighten CR more. BACKGROUND * Mr Milner is a 53 y/o M with a PMH of T2DM who presents with syncope with SOB. * Patient received Solu-Medrol 125 mg IV x 1 on 07/20 @ 1818. * BSG on 07/21 overnight was 461 for which patient received 30 units of Lantus and 5 units of IV insulin. * Patient received 25 units of Novolog at 0600 for BSG of 465. * Patient's was covered for breakfast around 1000 but BSG was drawn early at 1130 (425). * Due to close Novolog administration and BSG check, loosen CF to 20 to prevent stacking. BSG to be checked at 1430 to ensure BSGs are trending down. * In terms of steroids, patient received Solu-Medrol 40 mg IV x 1 this AM and was then changed to prednisone 40 mg PO daily starting 07/22. * For Lantus, will start 30 units SQ BID. PLAN FOR INPATIENT GLYCEMIC CONTROL: * Hold outpatient oral diabetes medications * Basal insulin * Lantus 30 units SQ HS * Bolus insulin * NovoLog per scale ACHS or Q6hrs while NPO * Goal Range: Low 110 mg/dL - High 140 mg/dL * Correction Factor: 10 mg/dL/unit * Nutritional / Prandial insulin per carb ratio of 1 unit per 2 grams CHO consumed
--- NOTE | 2023-07-23 15:48 | Hospitalist Progress Note ---
Date of Service July 23, 2023 Assessment & Plan (1) Syncope: Plan: 53-year-old male with past medical significant for COPD, morbid obesity, type 2 diabetes, chronic diastolic heart failure, hypertension, hyperlipidemia, history of PE on Coumadin, mood disorder, medication noncompliance, current active smoker, chronic opioid abuse, chronic indwelling Lloyd catheter, history of subdural hematoma, history of subarachnoid hemorrhage, history of iron deficien cy anemia, depression with anxiety, venous insufficiency, multiple recurrent admissions presents with syncope and shortness of breath. Syncope --ECHO: Study was technically limited. Left ventricle is grossly normal size. Mild concentric LVH. EF 60 to 65%. Poorly visualized valvular anatomy --CT Head:No acute intracranial hemorrhage, midline shift, or mass effect. Check orthostatics Prior LINQ interrogation showed no arrhythmias Appreciate cardiology input Loop recorder interrogation complete Needs follow-up with cardiology upon discharge No rhythm issues while hospitalized Pneumonia Acute on chronic COPD exacerbation Acute on Chronic respiratory failure with hypoxia and hypercapnia --CTA:No acute pulmonary embolism. Minimal patchy consolidation in the RIGHT upper and lower lobes, concerning for mild infiltrates/pneumonia. Ongoing tobacco abuse--counseled to quit smoking Continue IV Rocephin and doxycycline Continue Nebs Wean supplemental oxygen to maintain saturations 88 to 92% Continue home inhalers Clinically improving Recurrent UTI likely related to Catheter Chronic indwelling Lloyd catheter Lloyd catheter was changed while in ED Noncompliant with urology follow-up as outpatient Urine culture growing MRSA, probable Enterococcus On IV Rocephin as above, added Zyvox continue current management Hypokalemia Replace and monitor Fall Due to syncope Fall precautions PT OT DM II Continue Insulin sliding scale, Lantus Monitor BGs Chronic diastolic CHF No signs of exacerbation Continue home diuretics Monitor for volume overload History of PE INR supratherapeutic on presentation Monitor PT/INR:4.7>3.0>>2.3>1.8 Restarted Coumadin--increase to 7.5 mg today Tobacco abuse counseled on multiple occasions to quit smoking Chronic pain Continues home pain medications Hypertension On Imdur and metoprolol and diuretics monitor Hyperlipidemia On statin BPH On Proscar and on Flomax Anxiety/ depression On duloxetine, Ativan as needed hydroxyzine as needed Morbid obesity BMI 59 DVT prophylaxis Coumadin SCDs Code Status Full code Disposition Home as able Admission and Anticipated Discharge Date Admission Date: July 20, 2023 Subjective Patient is seen and examined at bedside Feels a lot better today Evaluated by PT earlier today Cough, dyspnea improving Denies any chest pain, nausea, vomiting, abdominal pain Still feels not self intermittently Review of Systems Review of Systems: All systems reviewed & are unremarkable except as noted in Subjective Physical Exam Physical Exam: Physical Exam: Vitals signs as noted above General Appearance:Morbidly Obese, no apparent distress Head: normocephalic, Atraumatic Eyes: normal inspection, EOMI Neck: supple, Trachea midline Respiratory/Chest: Decreased coarse breath sounds, + Rhonchi/wheeze, No accessory muscle use Cardiovascular: S1, S2, No murmur Abdomen/GI:Soft, Non tender, Bowel sounds present Extremities/Musculoskeletal:normal inspection, chronic venous stasis changes, trace pedal edema Neurologic/Psych:AAOX3, grossly no focal neurological deficits Skin: normal color, warm Results & Data Results & Data Vital Signs (Past 12 Hours) Vital Signs Temp Pulse Pulse Resp BP BP Pulse Ox 07/23/23 15:16 77 17 94 07/23/23 11:38 36.4 C L 70 20 119/75 97 07/23/23 10:59 79 16 95 07/23/23 08:00 07/23/23 07:31 36.3 C L 63 18 129/62 92 07/23/23 07:12 63 15 92 07/23/23 04:09 36.3 C L 67 18 136/67 96 O2 Del Method FiO2 07/23/23 15:16 21 07/23/23 11:38 Room Air 07/23/23 10:59 Room Air 07/23/23 08:00 Room Air 07/23/23 07:31 Room Air 07/23/23 07:12 Room Air 21 07/23/23 04:09 Room Air Laboratory Results Short CBC 07/23/23 Range/Units 06:25 WBC 15.31 H (4.8-10.8) K/ul Hgb 12.9 L (14.0-18.0) g/dl Hct 41.6 L (42.0-52.0) % Plt Count 302 (130-400) K/uL BMP 07/23/23 06:25 Sodium 141 Potassium 3.0 L Chloride 98 Carbon Dioxide 39 H BUN 26 H Creatinine 1.17 Glucose 55 L Calcium 9.6
[2023-07-23] MEDS ORDERED: WARFARIN SOD 7.5 MG TAB PO SCH (16:00)
[2023-07-23] MEDS ORDERED: ACETAMINOPHEN 1,000 MG/100 ML VIAL IV PRN (20:00)
[2023-07-23] MEDS: ATORVASTATIN 40 MG TAB PO SCH (20:34)
[2023-07-23] MEDS: cefTRIAXone SODIUM 2,000 MG in DEXTROSE 5 % MINI-B 50 ML IV SCH (20:38)
[2023-07-23] MEDS ORDERED: LANTUS PER UNIT CHARGE SC SCH (21:00)
[2023-07-24] MEDS: guaiFENesin/DEXTROM SYRUP 100MG/10MG 5ML UDC PO PRN ×3 (01:36→17:29)
[2023-07-24 07:47] LABS: Hematocrit (blood only) 45.1 % (42.0-52.0); Hemoglobin 13.8 g/dl (14.0-18.0); Mean Corpuscular Hemoglobin 24.4 pg (25.0-34.0); Mean Corpuscular Hgb Conc 30.6 g/dL (32.0-36.0); Mean Corpuscular Volume 79.7 fL (80.0-100.0); Mean Platelet Volume 10.3 fL (9.4-12.4); Platelet Count 284 K/uL (130-400); Red Blood Count 5.66 M/uL (4.70-6.10); White Blood Count 16.09 K/ul (4.8-10.8)
[2023-07-24] MEDS: buprenorphine HCL 8 MG SUBL PO SCH ×3 (08:10→20:16)
[2023-07-24] MEDS: INSULIN ASPART PER UNIT CHARGE SC SCH ×4 (08:10→21:42)
[2023-07-24] MEDS: UMECLIDINIUM/VILANTEROL 62.5/25MCG 7 PUFFS/INHALER INH SCH (08:11)
[2023-07-24] MEDS: FLUTICASONE PROPIONATE NA SPR 16 GM BTL SCH (08:11)
[2023-07-24] MEDS: CYCLOBENZAPRINE HCL 10 MG TAB PO PRN ×2 (08:11→20:11)
[2023-07-24] MEDS: FLUTICASONE FUROATE 200MCG 14 PUFFS/INHALER INH SCH (08:11)
[2023-07-24] MEDS: MAGNESIUM OXIDE 400 MG TAB PO SCH (08:11)
[2023-07-24] MEDS: predniSONE 20 MG TAB PO SCH (08:12)
[2023-07-24] MEDS: DULoxetine HCL 60 MG CAP PO SCH (08:12)
[2023-07-24] MEDS: TORSEMIDE 10 MG TAB PO SCH (08:12)
[2023-07-24] MEDS: LINEZOLID 600 MG TAB PO SCH ×2 (08:12→20:11)
[2023-07-24] MEDS: ASPIRIN 81 MG ECTAB PO SCH (08:13)
[2023-07-24] MEDS: TAMSULOSIN HCL 0.4 MG CAP PO SCH (08:13)
[2023-07-24] MEDS: ADVANCED PROBIOTIC 1250 MG CAPSULE PO SCH (08:13)
[2023-07-24] MEDS: FAMOTIDINE 20 MG TAB PO SCH (08:14)
[2023-07-24] MEDS: CHOLECALCIFEROL 5,000 UNITS 125 MCG TAB PO SCH (08:14)
[2023-07-24] MEDS: FERROUS SULFATE 325 MG TAB PO SCH (08:14)
[2023-07-24] MEDS: POTASSIUM CHLORIDE CRTAB 20 MEQ TABCR PO SCH ×2 (08:14→17:36)
[2023-07-24] MEDS: ISOSORBIDE DINITRATE 10 MG TAB PO SCH (08:14)
[2023-07-24] MEDS: NICOTINE 21 MG/24 HR TDSY TD SCH (08:14)
[2023-07-24] MEDS: FOLIC ACID 1 MG TAB PO SCH (08:15)
[2023-07-24] MEDS: PANTOprazole 40 MG TAB PO SCH (08:15)
[2023-07-24] MEDS: GABAPENTIN 800 MG TAB PO SCH ×3 (08:15→20:12)
[2023-07-24] MEDS: DOCUSATE SODIUM 100 MG CAP PO SCH ×2 (08:15→20:11)
[2023-07-24] MEDS: DOXYCYCLINE HYCLATE 100 MG CAP PO SCH ×2 (08:15→19:50)
[2023-07-24 08:16] LABS: INR 2.5 (0.9-1.1); Prothrombin Time 25.5 Seconds (9.0-12.0)
[2023-07-24] MEDS: guaiFENesin 600 MG TABCR PO SCH ×2 (08:16→20:12)
[2023-07-24] MEDS: METOPROLOL SUCC 25MG EXT REL TAB PO SCH ×2 (08:16→20:11)
[2023-07-24] MEDS: DICLOFENAC SOD 1% GEL 100 GM TUBE EXT SCH ×2 (08:21→20:12)
[2023-07-24] MEDS: INSULIN HUMAN NPH SC SCH (08:22)
[2023-07-24] MEDS: FINASTERIDE 5 MG TAB PO SCH (08:22)
[2023-07-24 08:34] LABS: BUN Creatinine Ratio 24.3 (10-20); Calcium 9.4 mg/dl (8.6-10.3); Creatinine Clr Calc Pharmacy 133.8 ml/min; Est GFR (African American) 83.7 ml/min; Est GFR (Non-African American) 72.3 ml/min; Magnesium 1.8 mg/dl (1.7-2.4); Potassium 3.8 mmol/L (3.5-5.1)
[2023-07-24] MEDS: BUDESONIDE 0.5 MG/2 ML VIAL (PULMICORT) NEB SCH ×2 (08:49→19:42)
[2023-07-24] MEDS: LEVALBUTEROL 1.25 MG/3 ML NEB NEB SCH ×4 (08:49→19:41)
[2023-07-24] MEDS: IPRATROPIUM BROMIDE NEB SOLN 0.02% 2.5 ML VIAL INH SCH ×4 (08:50→19:41)
[2023-07-24] MEDS: POLYETHYLENE (MIRALAX) 17 GM PACK PO SCH (12:33)
[2023-07-24] MEDS: SPIRONOLACTONE 25 MG TAB PO SCH (12:33)
[2023-07-24] MEDS ORDERED: WARFARIN SOD 4 MG TAB PO SCH (16:00)
--- NOTE | 2023-07-24 17:35 | Hospitalist Progress Note ---
Date of Service July 24, 2023 Assessment & Plan (1) Syncope: Plan: 53-year-old male with past medical significant for COPD, morbid obesity, type 2 diabetes, chronic diastolic heart failure, hypertension, hyperlipidemia, history of PE on Coumadin, mood disorder, medication noncompliance, current active smoker, chronic opioid abuse, chronic indwelling Lloyd catheter, history of subdural hematoma, history of subarachnoid hemorrhage, history of iron deficien cy anemia, depression with anxiety, venous insufficiency, multiple recurrent admissions presents with syncope and shortness of breath. Syncope --ECHO: Study was technically limited. Left ventricle is grossly normal size. Mild concentric LVH. EF 60 to 65%. Poorly visualized valvular anatomy --CT Head:No acute intracranial hemorrhage, midline shift, or mass effect. Check orthostatics Prior LINQ interrogation showed no arrhythmias Appreciate cardiology input Loop recorder interrogation complete Needs follow-up with cardiology upon discharge No rhythm issues while hospitalized Pneumonia Acute on chronic COPD exacerbation Acute on Chronic respiratory failure with hypoxia and hypercapnia Chronic hypoxia--uses supplemental oxygen at bedtime --CTA:No acute pulmonary embolism. Minimal patchy consolidation in the RIGHT upper and lower lobes, concerning for mild infiltrates/pneumonia. Ongoing tobacco abuse--counseled to quit smoking Continue IV Rocephin and doxycycline Continue Nebs Continue home inhalers Continue current management Weaned off of supplemental oxygen Recurrent UTI likely related to Catheter Chronic indwelling Lloyd catheter Lloyd catheter was changed while in ED Noncompliant with urology follow-up as outpatient Urine culture growing MRSA, Enterococcus faecalis On IV Rocephin as above, added Zyvox continue current antibiotics Hypokalemia Replace and monitor Fall Due to syncope Fall precautions PT OT DM II Continue Insulin sliding scale, Lantus Monitor BGs Chronic diastolic CHF No signs of exacerbation Continue home diuretics Monitor for volume overload History of PE INR supratherapeutic on presentation Monitor PT/INR:4.7>3.0>>2.3>1.8>2.5 Restarted Coumadin--will give 4 mg today Tobacco abuse counseled on multiple occasions to quit smoking Chronic pain Continues home pain medications Hypertension On Imdur and metoprolol and diuretics monitor Hyperlipidemia On statin BPH On Proscar and on Flomax Anxiety/ depression On duloxetine, Ativan as needed hydroxyzine as needed Morbid obesity BMI 59 DVT prophylaxis Coumadin SCDs Code Status Full code Disposition Home as able Admission and Anticipated Discharge Date Admission Date: July 20, 2023 Subjective Patient is seen and examined at bedside States having sore throat, feels congested Less Cough Still has dyspnea on exertion Denies any chest pain, nausea, vomiting, abdominal pain Saturating well on room air Review of Systems Review of Systems: All systems reviewed & are unremarkable except as noted in Subjective Physical Exam Physical Exam: Physical Exam: Vitals signs as noted above General Appearance:Morbidly Obese, no apparent distress Head: normocephalic, Atraumatic Eyes: normal inspection, EOMI Neck: supple, Trachea midline Respiratory/Chest: Decreased coarse breath sounds, + Rhonchi/wheeze, No accessory muscle use Cardiovascular: S1, S2, No murmur Abdomen/GI:Soft, Non tender, Bowel sounds present Extremities/Musculoskeletal:normal inspection, chronic venous stasis changes, trace pedal edema Neurologic/Psych:AAOX3, grossly no focal neurological deficits Skin: normal color, warm Results & Data Results & Data Vital Signs (Past 12 Hours) Vital Signs Temp Pulse Resp BP Pulse Ox O2 Del Method O2 Flow Rate 07/24/23 15:37 70 16 96 Room Air 07/24/23 15:26 36.0 C L 67 18 131/70 94 Room Air 07/24/23 11:22 36.3 C L 65 18 127/52 L 98 Room Air 07/24/23 10:49 61 16 97 Room Air 07/24/23 08:50 70 18 96 Room Air 07/24/23 08:00 Room Air 07/24/23 07:49 36.5 C 62 18 134/73 96 Nasal Cannula 2 Laboratory Results Short CBC 07/24/23 Range/Units 06:44 WBC 16.09 H (4.8-10.8) K/ul Hgb 13.8 L (14.0-18.0) g/dl Hct 45.1 (42.0-52.0) % Plt Count 284 (130-400) K/uL BMP 07/24/23 06:44 Sodium 137 Potassium 3.8 D Chloride 96 L Carbon Dioxide 36 H BUN 28 H Creatinine 1.15 Glucose 205 H Calcium 9.4
--- NOTE | 2023-07-24 19:57 | XRay Report ---
XR chest 1V portable CLINICAL HISTORY: Cough, SOB TECHNIQUE: Single frontal radiograph of the chest was obtained. Comparison: Comparison is made to chest radiograph 07/20/2023 FINDINGS: Loop recorder is seen. Exam is limited by underpenetration. The cardiomediastinal silhouette is gwen l. Faint right lower lung airspace opacity is seen. No evidence of pleural effusion or pneumothorax. IMPRESSION: Faint right lower lung airspace opacity may reflect atelectasis, pneumonia, and/or aspiration. ACT 112: Negative or not required by law. Electronically signed by: Armand Tobar M.D. 07/24/2023 7:55 PM
[2023-07-24] MEDS: cefTRIAXone SODIUM 2,000 MG in DEXTROSE 5 % MINI-B 50 ML IV SCH (19:59)
[2023-07-24] MEDS: ATORVASTATIN 40 MG TAB PO SCH (20:12)
[2023-07-24] MEDS ORDERED: LANTUS PER UNIT CHARGE SC SCH (21:00)
[2023-07-25] MEDS: LORazepam 0.5 MG TAB PO PRN ×2 (00:27→18:10)
[2023-07-25] MEDS: LEVALBUTEROL 1.25 MG/3 ML NEB NEB SCH ×4 (06:54→20:19)
[2023-07-25] MEDS: IPRATROPIUM BROMIDE NEB SOLN 0.02% 2.5 ML VIAL INH SCH ×4 (06:55→20:19)
[2023-07-25] MEDS: BUDESONIDE 0.5 MG/2 ML VIAL (PULMICORT) NEB SCH ×2 (06:55→20:19)
[2023-07-25] MEDS: NICOTINE 21 MG/24 HR TDSY TD SCH (07:53)
[2023-07-25] MEDS: POTASSIUM CHLORIDE CRTAB 20 MEQ TABCR PO SCH ×2 (07:53→16:51)
[2023-07-25] MEDS: LINEZOLID 600 MG TAB PO SCH ×2 (07:53→21:41)
[2023-07-25] MEDS: DICLOFENAC SOD 1% GEL 100 GM TUBE EXT SCH ×2 (07:53→21:40)
[2023-07-25] MEDS: METOPROLOL SUCC 25MG EXT REL TAB PO SCH ×2 (07:54→21:43)
[2023-07-25] MEDS: predniSONE 20 MG TAB PO SCH (07:54)
[2023-07-25] MEDS: DOCUSATE SODIUM 100 MG CAP PO SCH ×2 (07:54→21:41)
[2023-07-25] MEDS: FINASTERIDE 5 MG TAB PO SCH (07:54)
[2023-07-25] MEDS: DULoxetine HCL 60 MG CAP PO SCH (07:54)
[2023-07-25] MEDS: FOLIC ACID 1 MG TAB PO SCH (07:54)
[2023-07-25] MEDS: ASPIRIN 81 MG ECTAB PO SCH (07:55)
[2023-07-25] MEDS: ISOSORBIDE DINITRATE 10 MG TAB PO SCH (07:55)
[2023-07-25] MEDS: FAMOTIDINE 20 MG TAB PO SCH (07:56)
[2023-07-25] MEDS: SPIRONOLACTONE 25 MG TAB PO SCH (07:56)
[2023-07-25] MEDS: GABAPENTIN 800 MG TAB PO SCH ×3 (07:56→21:39)
[2023-07-25] MEDS: FERROUS SULFATE 325 MG TAB PO SCH (07:56)
[2023-07-25] MEDS: TORSEMIDE 10 MG TAB PO SCH (07:56)
[2023-07-25] MEDS: ADVANCED PROBIOTIC 1250 MG CAPSULE PO SCH (07:57)
[2023-07-25] MEDS: DOXYCYCLINE HYCLATE 100 MG CAP PO SCH ×2 (07:57→21:37)
[2023-07-25] MEDS: TAMSULOSIN HCL 0.4 MG CAP PO SCH (07:57)
[2023-07-25] MEDS: MAGNESIUM OXIDE 400 MG TAB PO SCH (07:57)
[2023-07-25] MEDS: CHOLECALCIFEROL 5,000 UNITS 125 MCG TAB PO SCH (07:58)
[2023-07-25] MEDS: FLUTICASONE PROPIONATE NA SPR 16 GM BTL SCH (07:58)
[2023-07-25] MEDS: UMECLIDINIUM/VILANTEROL 62.5/25MCG 7 PUFFS/INHALER INH SCH (07:59)
[2023-07-25] MEDS: FLUTICASONE FUROATE 200MCG 14 PUFFS/INHALER INH SCH (07:59)
[2023-07-25] MEDS: POLYETHYLENE (MIRALAX) 17 GM PACK PO SCH (08:01)
[2023-07-25] MEDS: PANTOprazole 40 MG TAB PO SCH (08:01)
[2023-07-25 08:16] LABS: Calcium 9.2 mg/dl (8.6-10.3); Creatinine Clr Calc Pharmacy 144.4 ml/min; Est GFR (African American) 90.3 ml/min; Est GFR (Non-African American) 77.9 ml/min; Potassium 3.8 mmol/L (3.5-5.1)
[2023-07-25 08:26] LABS: INR 4.1 (0.9-1.1); Prothrombin Time 41.3 Seconds (9.0-12.0)
[2023-07-25] MEDS: buprenorphine HCL 8 MG SUBL PO SCH ×3 (08:42→21:40)
[2023-07-25] MEDS: CYCLOBENZAPRINE HCL 10 MG TAB PO PRN ×2 (08:42→21:46)
[2023-07-25] MEDS: ACETAMINOPHEN 1,000 MG/100 ML VIAL IV PRN ×2 (08:43→22:22)
[2023-07-25] MEDS: INSULIN ASPART PER UNIT CHARGE SC SCH ×4 (08:44→21:44)
[2023-07-25] MEDS: INSULIN HUMAN NPH SC SCH (08:46)
[2023-07-25] MEDS: guaiFENesin 600 MG TABCR PO SCH ×2 (09:44→21:38)
[2023-07-25] MEDS: guaiFENesin/DEXTROM SYRUP 100MG/10MG 5ML UDC PO PRN (13:33)
--- NOTE | 2023-07-25 16:47 | Hospitalist Progress Note ---
Date of Service July 25, 2023 Assessment & Plan (1) Syncope: Plan: 53-year-old male with past medical significant for COPD, morbid obesity, type 2 diabetes, chronic diastolic heart failure, hypertension, hyperlipidemia, history of PE on Coumadin, mood disorder, medication noncompliance, current active smoker, chronic opioid abuse, chronic indwelling Lloyd catheter, history of subdural hematoma, history of subarachnoid hemorrhage, history of iron deficien cy anemia, depression with anxiety, venous insufficiency, multiple recurrent admissions presents with syncope and shortness of breath. Syncope --ECHO: Study was technically limited. Left ventricle is grossly normal size. Mild concentric LVH. EF 60 to 65%. Poorly visualized valvular anatomy --CT Head:No acute intracranial hemorrhage, midline shift, or mass effect. Normal Orthostatics Prior LINQ interrogation showed no arrhythmias Appreciate cardiology input Loop recorder interrogation complete Needs follow-up with cardiology upon discharge No rhythm issues on Monitor Pneumonia Acute on chronic COPD exacerbation Acute on Chronic respiratory failure with hypoxia and hypercapnia Chronic hypoxia--uses supplemental oxygen at bedtime --CTA:No acute pulmonary embolism. Minimal patchy consolidation in the RIGHT upper and lower lobes, concerning for mild infiltrates/pneumonia. Ongoing tobacco abuse--counseled to quit smoking Continue IV Rocephin and doxycycline Continue Nebs Continue home inhalers Weaned off of supplemental oxygen Transition to p.o. antibiotics tomorrow Recurrent UTI likely related to Catheter Chronic indwelling Lloyd catheter Lloyd catheter was changed while in ED Noncompliant with urology follow-up as outpatient Urine culture growing MRSA, Enterococcus faecalis On IV Rocephin as above, added Zyvox continue current antibiotics Hypokalemia Replace and monitor Fall Due to syncope Fall precautions PT OT DM II Continue Insulin sliding scale, Lantus Monitor BGs Chronic diastolic CHF No signs of exacerbation Continue home diuretics Monitor for volume overload History of PE INR supratherapeutic on presentation Monitor PT/INR:4.7>3.0>>2.3>1.8>2.5>4.1 Hold Coumadin today Needs follow-up with Coumadin clinic upon discharge Tobacco abuse counseled on multiple occasions to quit smoking Chronic pain Continues home pain medications Hypertension On Imdur and metoprolol and diuretics monitor Hyperlipidemia On statin BPH On Proscar and on Flomax Anxiety/ depression On duloxetine, Ativan as needed hydroxyzine as needed Morbid obesity BMI 59 DVT prophylaxis Coumadin SCDs Code Status Full code Disposition Home as able Admission and Anticipated Discharge Date Admission Date: July 20, 2023 Subjective Patient is seen and examined at bedside Clinically no significant change from yesterday Reports sore throat, cough today No significant dyspnea Denies any chest pain, nausea, vomiting, abdominal pain Saturating well on room air Review of Systems Review of Systems: All systems reviewed & are unremarkable except as noted in Subjective Physical Exam Physical Exam: Physical Exam: Vitals signs as noted above General Appearance:Morbidly Obese, no apparent distress Head: normocephalic, Atraumatic Eyes: normal inspection, EOMI Neck: supple, Trachea midline Respiratory/Chest: Decreased coarse breath sounds, + Rhonchi/wheeze, No accessory muscle use Cardiovascular: S1, S2, No murmur Abdomen/GI:Soft, Non tender, Bowel sounds present Extremities/Musculoskeletal:normal inspection, chronic venous stasis changes, trace pedal edema Neurologic/Psych:AAOX3, grossly no focal neurological deficits Skin: normal color, warm Results & Data Results & Data Vital Signs (Past 12 Hours) Vital Signs Temp Pulse Pulse Resp BP Pulse Ox O2 Del Method 07/25/23 15:21 36.7 C 70 18 131/54 L 93 Room Air 07/25/23 14:49 81 18 98 Room Air 07/25/23 11:36 36.5 C 67 18 129/61 96 Room Air 07/25/23 11:08 78 18 96 Room Air 07/25/23 07:45 Room Air 07/25/23 07:40 36.4 C L 61 18 109/63 98 Room Air, Nasal Cannula 07/25/23 07:27 60 07/25/23 06:55 60 18 97 Nasal Cannula O2 Flow Rate 07/25/23 15:21 07/25/23 14:49 07/25/23 11:36 07/25/23 11:08 07/25/23 07:45 07/25/23 07:40 2 07/25/23 07:27 07/25/23 06:55 2 Laboratory Results [facility] 07/25/23 07:20 Sodium 138 Potassium 3.8 Chloride 98 Carbon Dioxide 36 H BUN 27 H Creatinine 1.08 Glucose 259 H Calcium 9.2
[2023-07-25] MEDS ORDERED: LANTUS PER UNIT CHARGE SC SCH (21:00)
[2023-07-25] MEDS: CLOTRIMAZOLE 10 MG TROCHE BUCCAL SCH (21:37)
[2023-07-25] MEDS: ATORVASTATIN 40 MG TAB PO SCH (21:39)
[2023-07-25] MEDS: cefTRIAXone SODIUM 2,000 MG in DEXTROSE 5 % MINI-B 50 ML IV SCH (21:47)
[2023-07-25] MEDS ORDERED: Nursing to Pharmacy Communication SCH (22:15)
[2023-07-26] MEDS: CLOTRIMAZOLE 10 MG TROCHE BUCCAL SCH ×3 (00:58→11:58)
[2023-07-26] MEDS: DOXYCYCLINE HYCLATE 100 MG CAP PO SCH (06:15)
[2023-07-26] MEDS: BUDESONIDE 0.5 MG/2 ML VIAL (PULMICORT) NEB SCH (07:46)
[2023-07-26] MEDS: LEVALBUTEROL 1.25 MG/3 ML NEB NEB SCH ×2 (07:46→11:22)
[2023-07-26] MEDS: IPRATROPIUM BROMIDE NEB SOLN 0.02% 2.5 ML VIAL INH SCH ×2 (07:46→11:22)
[2023-07-26 08:21] LABS: INR 3.1 (0.9-1.1); Prothrombin Time 31.9 Seconds (9.0-12.0)
[2023-07-26 08:24] LABS: Calcium 8.9 mg/dl (8.6-10.3)
[2023-07-26 08:30] LABS: BUN Creatinine Ratio 25.2 (10-20); Creatinine Clr Calc Pharmacy 151.4 ml/min; Est GFR (African American) 95.7 ml/min; Est GFR (Non-African American) 82.5 ml/min
[2023-07-26] MEDS: POTASSIUM CHLORIDE CRTAB 20 MEQ TABCR PO SCH (08:41)
[2023-07-26] MEDS: FERROUS SULFATE 325 MG TAB PO SCH (08:41)
[2023-07-26] MEDS: DICLOFENAC SOD 1% GEL 100 GM TUBE EXT SCH (08:42)
[2023-07-26] MEDS: CHOLECALCIFEROL 5,000 UNITS 125 MCG TAB PO SCH (08:42)
[2023-07-26] MEDS: DOCUSATE SODIUM 100 MG CAP PO SCH (08:42)
[2023-07-26] MEDS: ASPIRIN 81 MG ECTAB PO SCH (08:42)
[2023-07-26] MEDS: buprenorphine HCL 8 MG SUBL PO SCH (08:42)
[2023-07-26] MEDS: DULoxetine HCL 60 MG CAP PO SCH (08:43)
[2023-07-26] MEDS: FINASTERIDE 5 MG TAB PO SCH (08:43)
[2023-07-26] MEDS: FAMOTIDINE 20 MG TAB PO SCH (08:43)
[2023-07-26] MEDS: FOLIC ACID 1 MG TAB PO SCH (08:44)
[2023-07-26] MEDS: FLUTICASONE FUROATE 200MCG 14 PUFFS/INHALER INH SCH (08:45)
[2023-07-26] MEDS: FLUTICASONE PROPIONATE NA SPR 16 GM BTL SCH (08:45)
[2023-07-26] MEDS: GABAPENTIN 800 MG TAB PO SCH (08:46)
[2023-07-26] MEDS: guaiFENesin/DEXTROM SYRUP 100MG/10MG 5ML UDC PO PRN (08:47)
[2023-07-26] MEDS: ISOSORBIDE DINITRATE 10 MG TAB PO SCH (08:47)
[2023-07-26] MEDS: ADVANCED PROBIOTIC 1250 MG CAPSULE PO SCH (08:48)
[2023-07-26] MEDS: guaiFENesin 600 MG TABCR PO SCH (08:48)
[2023-07-26] MEDS: LINEZOLID 600 MG TAB PO SCH (08:48)
[2023-07-26] MEDS: NICOTINE 21 MG/24 HR TDSY TD SCH (08:48)
[2023-07-26] MEDS: METOPROLOL SUCC 25MG EXT REL TAB PO SCH (08:48)
[2023-07-26] MEDS: MAGNESIUM OXIDE 400 MG TAB PO SCH (08:48)
[2023-07-26] MEDS: PANTOprazole 40 MG TAB PO SCH (08:49)
[2023-07-26] MEDS: SPIRONOLACTONE 25 MG TAB PO SCH (08:49)
[2023-07-26] MEDS: TORSEMIDE 10 MG TAB PO SCH (08:49)
[2023-07-26] MEDS: TAMSULOSIN HCL 0.4 MG CAP PO SCH (08:49)
[2023-07-26] MEDS: predniSONE 20 MG TAB PO SCH (08:49)
[2023-07-26] MEDS: POLYETHYLENE (MIRALAX) 17 GM PACK PO SCH (08:50)
[2023-07-26] MEDS: ACETAMINOPHEN 1,000 MG/100 ML VIAL IV PRN (08:54)
[2023-07-26] MEDS: UMECLIDINIUM/VILANTEROL 62.5/25MCG 7 PUFFS/INHALER INH SCH (09:22)
[2023-07-26] MEDS: INSULIN ASPART PER UNIT CHARGE SC SCH ×2 (09:22→11:57)
[2023-07-26] MEDS: INSULIN HUMAN NPH SC SCH (09:22)
--- NOTE | 2023-07-26 09:46 | Pharmacy Report ---
Pharmacy Glycemic Short Note 2 - Date of Service July 26, 2023 - Glycemic Short BSG Results (Last 24 hours): 07/25/23 07/25/23 07/25/23 11:34 16:20 20:35 Glucose POC Glucose 163 H 119 H 323 H* 07/25/23 07/25/23 07/26/23 20:37 20:38 07:20 Glucose 244 H POC Glucose 288 H 219 H 07/26/23 07:41 Glucose POC Glucose 244 H OUTPATIENT ANTIDIABETIC REGIMEN: * Lantus 50 units HS * Novolog 10 units with meals HbA1c: 7.8% (04/08/23) ASSESSMENT: 07/26/23: * BSGs poorly controlled over past 48 hours, likely related to hyperglycemic effects of steroid and large amounts of documented carbohydrates * Patient received 262 units of insulin yesterday * NPH insulin increased yesterday with prednisone - will continue * Fasting BSG of 244 mg/dL this morning - plan to increase basal insulin today * Patient to be discharged today 07/23/23 * BSGs yesterday were [phone] mg/dL. Patient received 426 units of insulin (115 units of basal and 311 units of bolus). * Patient was hypoglycemic this AM due to excess basal. * Held AM Lantus. Continue NPH due to prednisone 40 mg daily. * Okay to give PM Lantus (will reflect 50% reduction). * Loosened Novolog since BSGs trended downwards. 07/22/23 * BSG with dinner yesterday was 396 and at bedtime was 310 mg/dL. An 0200 check showed BSG of 247 mg/dL. * Patient received 318 units of insulin (90 units of basal and 228 units of bolus). * Fasting today is 170 mg/dL. * Patient was transitioned to prednisone 40 mg PO daily today. * For basal insulin, will increase to Lantus 40 units BID since fasting >140 mg/dL + add NPH 45 units (to help cover prednisone). * Tighten CR more. BACKGROUND * Mr Milner is a 53 y/o M with a PMH of T2DM who presents with syncope with SOB. * Patient received Solu-Medrol 125 mg IV x 1 on 07/20 @ 1818. * BSG on 07/21 overnight was 461 for which patient received 30 units of Lantus and 5 units of IV insulin. * Patient received 25 units of Novolog at 0600 for BSG of 465. * Patient's was covered for breakfast around 1000 but BSG was drawn early at 1130 (425). * Due to close Novolog administration and BSG check, loosen CF to 20 to prevent stacking. BSG to be checked at 1430 to ensure BSGs are trending down. * In terms of steroids, patient received Solu-Medrol 40 mg IV x 1 this AM and was then changed to prednisone 40 mg PO daily starting 07/22. * For Lantus, will start 30 units SQ BID. PLAN FOR INPATIENT GLYCEMIC CONTROL: * Basal insulin * Lantus 45 units SC HS * Bolus insulin * NovoLog per scale ACHS or Q6hrs while NPO * Goal Range: Low 110 mg/dL - High 140 mg/dL * Correction Factor: 10 mg/dL/unit * Nutritional / Prandial insulin per carb ratio of 1 unit per 2 grams CHO consumed
[2023-07-26] MEDS ORDERED: INSULIN HUMAN REGULAR PER UNIT 10 UNITS in SYRINGE 9.9 ML IV ONE (11:45)
--- NOTE | 2023-07-26 12:10 | Hospitalist Progress Note ---
Date of Service July 26, 2023 Assessment & Plan (1) Syncope: Plan: 53-year-old male with past medical significant for COPD, morbid obesity, type 2 diabetes, chronic diastolic heart failure, hypertension, hyperlipidemia, history of PE on Coumadin, mood disorder, medication noncompliance, current active smoker, chronic opioid abuse, chronic indwelling Lloyd catheter, history of subdural hematoma, history of subarachnoid hemorrhage, history of iron deficien cy anemia, depression with anxiety, venous insufficiency, multiple recurrent admissions presents with syncope and shortness of breath. Syncope --ECHO: Study was technically limited. Left ventricle is grossly normal size. Mild concentric LVH. EF 60 to 65%. Poorly visualized valvular anatomy --CT Head:No acute intracranial hemorrhage, midline shift, or mass effect. Normal Orthostatics Prior LINQ interrogation showed no arrhythmias Appreciate cardiology input Loop recorder interrogation complete Needs follow-up with cardiology upon discharge No rhythm issues on Monitor Plan to discharge home today Pneumonia Acute on chronic COPD exacerbation Acute on Chronic respiratory failure with hypoxia and hypercapnia Chronic hypoxia--uses supplemental oxygen at bedtime --CTA:No acute pulmonary embolism. Minimal patchy consolidation in the RIGHT upper and lower lobes, concerning for mild infiltrates/pneumonia. Ongoing tobacco abuse--counseled to quit smoking Continue IV Rocephin and doxycycline Continue Nebs Continue home inhalers Weaned off of supplemental oxygen Transition to p.o. antibiotics upon discharge to complete the course Recurrent UTI likely related to Catheter Chronic indwelling Lloyd catheter Lloyd catheter was changed while in ED Noncompliant with urology follow-up as outpatient Urine culture growing MRSA, Enterococcus faecalis On IV Rocephin as above, added Zyvox continue current antibiotics Hypokalemia Replace and monitor Fall Due to syncope Fall precautions PT OT DM II Continue Insulin sliding scale, Lantus Monitor BGs Chronic diastolic CHF No signs of exacerbation Continue home diuretics Monitor for volume overload History of PE INR supratherapeutic on presentation Monitor PT/INR:4.7>3.0>>2.3>1.8>2.5>4.1>3.1 Hold Coumadin today Advised to follow up with Coumadin clinic upon discharge Tobacco abuse counseled on multiple occasions to quit smoking Chronic pain Continues home pain medications Hypertension On Imdur and metoprolol and diuretics monitor Hyperlipidemia On statin BPH On Proscar and on Flomax Anxiety/ depression On duloxetine, Ativan as needed hydroxyzine as needed Morbid obesity BMI 59 DVT prophylaxis Coumadin SCDs Code Status Full code Disposition Home today Admission and Anticipated Discharge Date Admission Date: July 20, 2023 Subjective Patient is seen and examined at bedside No new complaints cough, dyspnea much improved Denies any chest pain, nausea, vomiting, abdominal pain Saturating well on room air Plan to discharge home today Review of Systems Review of Systems: All systems reviewed & are unremarkable except as noted in Subjective Physical Exam Physical Exam: Physical Exam: Vitals signs as noted above General Appearance:Morbidly Obese, no apparent distress Head: normocephalic, Atraumatic Eyes: normal inspection, EOMI Neck: supple, Trachea midline Respiratory/Chest: Decreased coarse breath sounds, + Rhonchi/wheeze, No accessory muscle use Cardiovascular: S1, S2, No murmur Abdomen/GI:Soft, Non tender, Bowel sounds present Extremities/Musculoskeletal:normal inspection, chronic venous stasis changes, trace pedal edema Neurologic/Psych:AAOX3, grossly no focal neurological deficits Skin: normal color, warm Results & Data Results & Data Vital Signs (Past 12 Hours) Vital Signs Temp Pulse Resp BP Pulse Ox O2 Del Method O2 Flow Rate 07/26/23 11:22 68 18 96 Room Air 07/26/23 07:46 65 18 99 Nasal Cannula 4 07/26/23 07:45 Room Air 07/26/23 07:39 36.6 C 66 18 127/68 96 Room Air Laboratory Results [facility] 07/26/23 07:20 Sodium 136 Potassium 4.0 Chloride 100 Carbon Dioxide 30 BUN 26 H Creatinine 1.03 Glucose 244 H Calcium 8.9
--- NOTE | 2023-07-26 12:35 | Discharge Summary ---
Date of Service July 26, 2023 Admission HPI Per Admitting Provider 53-year-old male with past medical significant for COPD, morbid obesity, type 2 diabetes, chronic diastolic heart failure, hypertension, hyperlipidemia, history of PE on Coumadin, mood disorder, medication noncompliance, current active smoker, chronic opioid abuse, chronic indwelling Lloyd catheter, history of subdural hematoma, history of subarachnoid hemorrhage, history of iron deficiency anemia, depression with anxiety, venous insufficiency, multiple recurrent admissions presents with syncope and shortness of breath. Patient states last few days was feeling weak and passed out a few times. Today he was walking in the kitchen with his cane when he suddenly passed out and fell and hit his back of the head.. Thinks he lost conscious for few seconds but then back to normal. Difficult to get up. There is no prodromal symptoms. Says he also lost a lot of weight recently and legs are not edematous as before. Thinks probably is dehydrated. He gets on and off chest pains. Has ongoing cough. Smokes 1 pack of cigarettes daily. Uses oxygen 4 L while sleeping and in the daytime as needed. Says he might of had low-grade fevers. Has headache. No blurred visions or double visions. No earaches. No runny nose. No sore throat. He also thinks he has UTI and says his catheter was not changed since May 23. Somewhat constipated. Denies any blood in the stools. Currently sitting on the chair comfortably and hemodynamically stable. Says he is hungry and wants to eat. Past medical history. As mentioned above Past surgical history. Colonoscopy. EGD. EGD with endoscopic ultrasound. Foot surgery. Back surgery. Repair of left finger tendon. Repair of collateral ligament on left side. Simple repair of scalp neck. Social history. She smokes 1 pack a day currently for many years. No alcohol current. Currently on buprenorphine Family history. Sister had breast cancer. Father had aneurysm. Maternal grandfather SD in 50s. Maternal grandmother had SD in 80s. Paternal grandfather had COPD. Mother had musculoskeletal disorder. Admission Exam Per Admitting Provider General- Not in distress Head- atraumatic Eyes- PERRL. ENT- oropharynx clear Neck- supple, no JVD. Lungs- clear to auscultation m/l b/l wheezing heard no crackles. Heart- regular rhythm; no murmur, no gallop. Abdomen- normal bowel sounds, soft, nontender, no distension. Extremities- chronic skin changes in legs. no erythema seen. Neuro- alert, oriented x 3; PERRL, no facial palsy; no dysarthria; moves extremities. Skin- warm & dry Principal Diagnosis Syncope Pneumonia Acute on chronic COPD exacerbation Acute on Chronic respiratory failure with hypoxia and hypercapnia Recurrent UTI likely related to Catheter supratherapeutic INR Tobacco abuse Discharge Data Allergies Allergy/AdvReac Type Severity Reaction Status Date / Time cefepime Allergy Intermediate rash Verified 07/20/23 18:42 daptomycin Allergy Intermediate rash Verified 07/20/23 18:42 fentanyl Allergy Intermediate RASH/HIVES/SKIN Verified 07/20/23 18:42 REDNESS acetaminophen [From Tylenol] AdvReac Intermediate IRRITATES Verified 07/20/23 18:42 & UPSET STOMACH ibuprofen AdvReac Intermediate Nausea Verified 07/20/23 18:42 naloxone AdvReac Intermediate extremely Verified 07/20/23 18:42 sick valproic acid AdvReac Intermediate PANCREATITS Verified 07/20/23 18:42 Consultations 07/20/23 20:45 ED Decision to Admit Stat 07/21/23 08:00 Consult Cardiology Routine Procedures Performed Laboratory Results WBC 16.09 K/ul (4.8-10.8) H 07/24/23 06:44 RBC 5.66 M/uL (4.70-6.10) 07/24/23 06:44 Hgb 13.8 g/dl (14.0-18.0) L 07/24/23 06:44 Hct 45.1 % (42.0-52.0) 07/24/23 06:44 MCV 79.7 fL (80.0-100.0) L 07/24/23 06:44 MCH 24.4 pg (25.0-34.0) L 07/24/23 06:44 MCHC 30.6 g/dL (32.0-36.0) L 07/24/23 06:44 RDW Std Deviation 59.0 fL (36.4-46.3) H 07/24/23 06:44 RDW Coeff of Megan 21.0 % (11.5-14.5) H 07/24/23 06:44 Plt Count 284 K/uL (130-400) 07/24/23 06:44 MPV 10.3 fL (9.4-12.4) 07/24/23 06:44 Immature Gran % (Auto) 0.3 % 07/20/23 17:11 Neut % (Auto) 62.3 % 07/20/23 17:11 Lymph % (Auto) 25.2 % 07/20/23 17:11 [place] % (Auto) 6.5 % 07/20/23 17:11 Eos % (Auto) 5.2 % 07/20/23 17:11 Baso % (Auto) 0.5 % 07/20/23 17:11 Neut # (Auto) 8.99 K/uL (1.40-6.50) H 07/20/23 17:11 Lymph # (Auto) 3.64 K/uL (1.20-3.40) H 07/20/23 17:11 [place] # (Auto) 0.94 K/uL (0.11-0.59) H 07/20/23 17:11 Eos # (Auto) 0.75 K/uL (0.00-0.50) H 07/20/23 17:11 Baso # (Auto) 0.07 K/uL (0.00-0.20) 07/20/23 17:11 Immature Gran # (Auto) 0.05 K/uL (0.01-0.20) 07/20/23 17:11 PT 31.9 Seconds (9.0-12.0) H 07/26/23 07:20 INR 3.1 (0.9-1.1) H 07/26/23 07:20 VBG pH 7.49 (7.36-7.41) H 07/20/23 21:32 VBG pCO2 57 mmHg (38-50) H 07/20/23 21:32 VBG pO2 40 mmHg 07/20/23 21:32 VBG HCO3 43 mmol/L 07/20/23 21:32 VBG O2 Saturation 76.5 % 07/20/23 21:32 VBG Base Excess 17.0 mEq/L 07/20/23 21:32 Sodium 136 mmol/L (136-145) 07/26/23 07:20 Potassium 4.0 mmol/L (3.5-5.1) 07/26/23 07:20 Chloride 100 mmol/L (98-107) 07/26/23 07:20 Carbon Dioxide 30 mmol/L (21-32) 07/26/23 07:20 Anion Gap 6 (3-11) 07/26/23 07:20 BUN 26 mg/dl (6-23) H 07/26/23 07:20 Creatinine 1.03 mg/dl (0.6-1.4) 07/26/23 07:20 Est Cr Clr Drug Dosing 151.4 ml/min 07/26/23 07:20 Est GFR ( Amer) 95.7 ml/min 07/26/23 07:20 Est GFR (Non-Af Amer) 82.5 ml/min 07/26/23 07:20 BUN/Creatinine Ratio 25.2 (10-20) H 07/26/23 07:20 Glucose 244 mg/dl (70-99(Fasting)) H 07/26/23 07:20 POC Glucose 374 mg/dl (70-99) H* 07/26/23 11:28 Calcium 8.9 mg/dl (8.6-10.3) 07/26/23 07:20 Magnesium 1.8 mg/dl (1.7-2.4) 07/24/23 06:44 Total Bilirubin 0.9 mg/dl (0.2-1.0) 07/20/23 17:11 AST 18 U/L (13-39) 07/20/23 17:11 ALT 14 U/L (7-52) 07/20/23 17:11 Alkaline Phosphatase 107 U/L (34-104) H 07/20/23 17:11 Troponin I High Sens 3.4 pg/ml (0-20) 07/21/23 18:14 Total Protein 7.8 gm/dl (6.0-8.3) 07/20/23 17:11 Albumin 3.6 gm/dl (3.4-5.0) 07/20/23 17:11 Globulin 4.2 gm/dl (2.5-4.0) H 07/20/23 17:11 Albumin/Globulin Ratio 0.9 (0.9-2) 07/20/23 17:11 Lipase 38 U/L (11-82) 07/20/23 17:11 Procalcitonin < 0.05 ng/ml (0-0.5) 07/22/23 06:23 Urine Color Yellow 07/20/23 19:15 Urine Appearance Turbid (Clear) A 07/20/23 19:15 Urine pH 7.0 (4.5-7.5) 07/20/23 19:15 Ur Specific [place] 1.011 (1.000-1.030) 07/20/23 19:15 Urine Protein 2+ (Negative) H 07/20/23 19:15 Urine Glucose (UA) Negative (Negative) 07/20/23 19:15 Urine Ketones Negative (Negative) 07/20/23 19:15 Urine Blood 3+ (Negative) H 07/20/23 19:15 Urine Nitrite Negative (Negative) 07/20/23 19:15 Urine Bilirubin Negative (Negative) 07/20/23 19:15 Urine Urobilinogen Negative (Negative) 07/20/23 19:15 Ur Leukocyte Esterase 3+ (Negative) H 07/20/23 19:15 Urine WBC (Auto) >30 /hpf (0-5) H 07/20/23 19:15 Urine RBC (Auto) 0-4 /hpf (0-4) 07/20/23 19:15 U Hyaline Cast (Auto) 0 /lpf (0-5) 07/20/23 19:15 U Epithel Cells (Auto) >30 /lpf (0-5) H 07/20/23 19:15 Urine Bacteria (Auto) 1+ (Negative) H 07/20/23 19:15 Urine Yeast Not Reportable 07/20/23 19:15 SARS-CoV-2 (PCR) NEGATIVE (Negative) 07/20/23 17:11 Influenza Type A (PCR) Negative (Neg) 07/20/23 17:11 Influenza Type B (PCR) Negative (Neg) 07/20/23 17:11 RSV (RT-PCR) Negative (Neg) 07/20/23 17:[address] 07/20/23 17:31 Exam(s): CT C SPINE EXAM: CT Cervical Spine Without Intravenous Contrast CLINICAL HISTORY: Reason for exam: AMS, head trauma. TECHNIQUE: Axial computed tomography images of the cervical spine without intravenous contrast. CTDI is 38.31 mGy and DLP is 876.72 mGy-cm. Automated exposure control was utilized for the study. A dose lowering technique was utilized adhering to the principles of ALARA. COMPARISON: No relevant prior studies available. FINDINGS: The vertebral body heights are maintained. The craniocervical junction is intact. The atlanto-dens interval is maintained. The dens is intact. There is no spondylolisthesis. Multilevel cervical spondylosis and degenerative disc disease. Straightening of the cervical lordosis. The unenhanced neck soft tissues are grossly unremarkable. The visualized lung apices are grossly clear. IMPRESSION: No acute fracture or subluxation of the cervical spine. Electronically signed by: Joe Lr MD 07/20/23 20:20 PM Chest CTA 07/20/23 17:31 Exam(s): CTA CHEST IV Amt: 114ML OPTIRAY 320 EXAM: CT Angiography Chest With Intravenous Contrast CLINICAL HISTORY: Reason for exam: PE. TECHNIQUE: Axial computed tomographic angiography images of the chest with intravenous contrast. CTDI is 28.5 mGy and DLP is 876.72 mGy-cm. Automated exposure control was utilized for the study. A dose lowering technique was utilized adhering to the principles of ALARA. MIP reconstructed images were created and reviewed. COMPARISON: No relevant prior studies available. FINDINGS: Pulmonary arteries: Unremarkable. No acute pulmonary embolism. Aorta: No acute findings. No thoracic aortic aneurysm. Lungs: Minimal patchy consolidation in the RIGHT upper and lower lobes, concerning for mild infiltrates/pneumonia. Pleural space: Unremarkable. No significant effusion. No pneumothorax. Heart: Unremarkable. No cardiomegaly. No significant pericardial effusion. No evidence of RV dysfunction. Bones/joints: No acute fracture. No dislocation. Soft tissues: Unremarkable. Lymph nodes: Unremarkable. No enlarged lymph nodes. IMPRESSION: 1. No acute pulmonary embolism. 2. Minimal patchy consolidation in the RIGHT upper and lower lobes, concerning for mild infiltrates/pneumonia. Electronically signed by: Joe Lr MD 07/20/23 20:[address] 07/20/23 17:31 Exam(s): CT HEAD Without Contrast EXAM: CT Head Without Intravenous Contrast CLINICAL HISTORY: Reason for exam: head trauma. AMS. TECHNIQUE: Axial computed tomography images of the head/brain without intravenous contrast. CTDI is 38.37 mGy and DLP is 624.41 mGy-cm. Automated exposure control was utilized for the study. A dose lowering technique was utilized adhering to the principles of ALARA. COMPARISON: No relevant prior studies available. FINDINGS: No acute intracranial hemorrhage. No midline shift or mass effect. The territorial donald-white matter differentiation is maintained throughout. The ventricles and sulci are commensurate with age. The visualized orbits appear grossly unremarkable. The calvarium is intact. Chronic RIGHT maxillary sinusitis. IMPRESSION: No acute intracranial hemorrhage, midline shift, or mass effect. Electronically signed by: Joe Lr MD 07/20/23 20:20 PM Abdomen/Pelvis CT 07/20/23 17:32 Exam(s): CT ABDOMEN + PELVIS With Contrast IV Amt: 114ML OPTIRAY 320 EXAM: CT Abdomen and Pelvis With Intravenous Contrast CLINICAL HISTORY: Reason for exam: abd pain. TECHNIQUE: Axial computed tomography images of the abdomen and pelvis with intravenous contrast. CTDI is 27.74 mGy and DLP is 958.25 mGy-cm. Automated exposure control was utilized for the study. A dose lowering technique was utilized adhering to the principles of ALARA. CONTRAST: Patient received 114ML OPTIRAY 320 of IV contrast COMPARISON: No relevant prior studies available. FINDINGS: Lung bases: Unremarkable. No mass. No consolidation. ABDOMEN: Liver: Hepatic steatosis. Gallbladder and bile ducts: Unremarkable. No calcified stones. No ductal dilation. Pancreas: Unremarkable. No mass. No ductal dilation. Spleen: Unremarkable. No splenomegaly. Adrenals: Unremarkable. No mass. Kidneys and ureters: No hydronephrosis or delayed nephrogram. Nonobstructing 1 mm RIGHT mid pole renal stone. Stomach and bowel: Unremarkable. No acute diverticulitis. No bowel obstruction. No free air. PELVIS: Appendix: No findings to suggest acute appendicitis. Bladder: Lloyd catheter terminates in a decompressed urinary bladder. Reproductive: Unremarkable as visualized. ABDOMEN and PELVIS: Intraperitoneal space: See above. Bones/joints: Degenerative changes of the spine. No acute fracture. No dislocation. Soft tissues: Unremarkable. Vasculature: Atherosclerotic changes of the aorta. No abdominal aortic aneurysm. Lymph nodes: Unremarkable. No enlarged lymph nodes. IMPRESSION: 1. No acute diverticulitis. No bowel obstruction. No free air. 2. Hepatic steatosis. 3. Lloyd catheter terminates in a decompressed urinary bladder. 4. Nonobstructing 1 mm RIGHT mid pole renal stone. Electronically signed by: Joe Lr MD 07/20/23 20:26 PM Chest X-Ray 07/24/23 11:38 XR chest 1V portable CLINICAL HISTORY: Cough, SOB TECHNIQUE: Single frontal radiograph of the chest was obtained. Comparison: Comparison is made to chest radiograph 07/20/2023 FINDINGS: Loop recorder is seen. Exam is limited by underpenetration. The cardiomediastinal silhouette is normal. Faint right lower lung airspace opacity is seen. No evidence of pleural effusion or pneumothorax. IMPRESSION: Faint right lower lung airspace opacity may reflect atelectasis, pneumonia, and/or aspiration. ACT 112: Negative or not required by law. Electronically signed by: Armand Tobar M.D. 07/24/2023 7:55 PM Ordered Studies 07/20/23 17:31 CT cervical spine wo con Stat CT for pulmonary embolism PE [CT angio chest PE protocol] Stat CT head/brain wo con Stat 07/20/23 17:32 CT abd pelvis IV con only Stat Hospital Course (1) Syncope: 53-year-old male with past medical significant for COPD, morbid obesity, type 2 diabetes, chronic diastolic heart failure, hypertension, hyperlipidemia, history of PE on Coumadin, mood disorder, medication noncompliance, current active smoker, chronic opioid abuse, chronic indwelling Lloyd catheter, history of subdural hematoma, history of subarachnoid hemorrhage, history of iron deficiency anemia, depression with anxiety, venous insufficiency, multiple recurrent admissions presents with syncope and shortness of breath. Syncope --ECHO: Study was technically limited. Left ventricle is grossly normal size. Mild concentric LVH. EF 60 to 65%. Poorly visualized valvular anatomy --CT Head:No acute intracranial hemorrhage, midline shift, or mass effect. Normal Orthostatics Prior LINQ interrogation showed no arrhythmias Appreciate cardiology input Loop recorder interrogation complete Needs follow-up with cardiology upon discharge No rhythm issues on Monitor Plan to discharge home today Pneumonia Acute on chronic COPD exacerbation Acute on Chronic respiratory failure with hypoxia and hypercapnia Chronic hypoxia--uses supplemental oxygen at bedtime --CTA:No acute pulmonary embolism. Minimal patchy consolidation in the RIGHT upper and lower lobes, concerning for mild infiltrates/pneumonia. Ongoing tobacco abuse--counseled to quit smoking Continue IV Rocephin and doxycycline Continue Nebs Continue home inhalers Weaned off of supplemental oxygen Transition to p.o. antibiotics upon discharge to complete the course Recurrent UTI likely related to Catheter Chronic indwelling Lloyd catheter Lloyd catheter was changed while in ED Noncompliant with urology follow-up as outpatient Urine culture growing MRSA, Enterococcus faecalis On IV Rocephin as above, added Zyvox continue current antibiotics Hypokalemia Replace and monitor Fall Due to syncope Fall precautions PT OT DM II Continue Insulin sliding scale, Lantus Monitor BGs Chronic diastolic CHF No signs of exacerbation Continue home diuretics Monitor for volume overload History of PE INR supratherapeutic on presentation Monitor PT/INR:4.7>3.0>>2.3>1.8>2.5>4.1>3.1 Hold Coumadin today Advised to follow up with Coumadin clinic upon discharge Tobacco abuse counseled on multiple occasions to quit smoking Chronic pain Continues home pain medications Hypertension On Imdur and metoprolol and diuretics monitor Hyperlipidemia On statin BPH On Proscar and on Flomax Anxiety/ depression On duloxetine, Ativan as needed hydroxyzine as needed Morbid obesity BMI 59 DVT prophylaxis Coumadin SCDs Code Status Full code Disposition Home today Total Time Total Time Spent Total Time Spent (In Minutes): 65 minutes Discharge Plan Discharge Items Patient Disposition: Home - Home Health Services Reason For Visit: SOB, SYNCOPE Discharge Diagnosis: Syncope Pneumonia Acute on chronic COPD exacerbation Acute on Chronic respiratory failure with hypoxia and hypercapnia Recurrent UTI likely related to Catheter supratherapeutic INR Tobacco abuse Activity: Per Instructions section Exercise/Sports: Wait until after follow-up appointment Non-emergency contact: Primary Care Provider, Vehicle Calibration Engineer and Urologist Call non-emergency contact if: you have any medication questions, your symptoms worsen and you have a fever Follow-up/Referrals: Nikolai Liang MD [Physician] - 09/01/23 10:50 am Roberto Askew MD [Primary Care Provider] - (Date & Time 08/02/2023 12:00 PM Provider Roberto Askew MD Department General Internal Medicine [facility] ) Diet: Carb Consistent or DM2 and Heart Healthy Addtl Attending Provider Instructions: Follow-up with your primary care physician Dr. Askew on 08/02/2023 12:00 PM Follow-up with your urologist Dr. Liang on 09/01/2023 at 10:50 AM as scheduled Follow-up with Coumadin clinic for management of your PT/INR and Coumadin dosing Follow-up with your packager hand for further evaluation of recurrent syncopal episodes. Consider following with your dietitian assistant as advised. --- Do not take Coumadin today (07/26/2023) can resume your Coumadin home dose tomorrow discussed with Coumadin clinic for further adjustment of coumadin as needed --- Quit smoking tobacco as advised. --Complete antibiotic course as prescribed for pneumonia and urinary tract infection. --- Prednisone tapering course Start taking prednisone 30 mg daily for 2 days, then take 20 mg daily for 2 days, then take 10 mg daily for 2 days and stop Seek immediate medical attention if your symptoms reoccur or worsen Please take all medications as instructed on discharge list below. Please call if you have any questions or problems. You can reach a [facility] hospitalist on duty at [facility] 24 hours a day by calling [phone] Pending Studies at Discharge: Yes Stand-Alone Forms: My [facility], Smoking Cessation Medications and DC Order Prescriptions: New clotrimazole 10 mg Madeline 10 mg buccal [id number] 6 Days Qty: 24 0RF doxycycline hyclate 100 mg Capsule 100 mg PO BID@0700,1900 Qty: 6 0RF linezolid 600 mg Tablet 600 mg PO BID Qty: 10 0RF Pulmicort Flexhaler 90 mcg/actuation aerosol powdr breath activated 1 inh inhalation BID Qty: 1 0RF cefdinir 300 mg capsule 300 mg PO BID Qty: 6 0RF prednisone 10 mg tablet 10 mg PO DIRECTED Qty: 12 0RF Rx Instructions: Start taking prednisone 30 mg daily for 2 days, then take 20 mg daily for 2 days, then take 10 mg daily for 2 days and stop Continued promethazine 12.5 mg tablet 12.5 mg PO BID PRN (Reason: nausea and vomiting) Qty: 10 0RF tamsulosin [Flomax] 0.4 mg capsule 0.8 mg PO QAM Qty: 180 3RF polyethylene glycol 3350 [Miralax] 17 gram powder in packet 17 g PO QAM nitroglycerin [Nitrostat] 0.4 mg tablet, sublingual 0.4 mg Sublingual DIRECTED PRN (Reason: CHEST PAIN) Rx Instructions: PLACE ONE TABLET UNDER THE TONGUE EVERY 5 MINUTES FOR UP TO 3 DOSES OVER 15 MINUTES IF NEEDED FOR CHEST PAIN nystatin 100,000 unit/gram Powder 1 applic TOPICAL TID PRN (Reason: Skin Irritation) Rx Instructions: APPLY DIRECTED TO ABDOMINAL FOLDS cyclobenzaprine 10 mg Tablet 10 mg PO BID PRN (Reason: Muscle Spasm) docusate sodium 100 mg Capsule 100 mg PO BID duloxetine 60 mg capsule,delayed release(DR/EC) 60 mg PO DAILY famotidine 20 mg tablet 20 mg PO DAILY fluticasone propionate 50 mcg/actuation spray,suspension 2 spray Intranasal DAILY aspirin [Ecotrin Low Strength] 81 mg tablet,delayed release (DR/EC) 81 mg PO QAM finasteride 5 mg tablet 5 mg PO QAM metoprolol succinate 50 mg Tablet Extended Release 24 Hr 75 mg PO BID spironolactone 25 mg Tablet 25 mg PO QAM atorvastatin 80 mg tablet 80 mg PO QPM Rx Instructions: TAKE THIS MEDICATION EVERY AFTERNOON sennosides [senna] 8.6 mg Tablet 8.6 mg PO DAILY PRN (Reason: Constipation) folic acid 1 mg Tablet 1 mg PO QAM albuterol sulfate 90 mcg/actuation Hfa Aerosol Inhaler 2 puff INHALATION Q4 PRN (Reason: Dyspnea) omeprazole 20 mg Capsule,Delayed Release(Dr/Ec) 20 mg PO DAILYBB gabapentin 800 mg tablet 800 mg PO TID glipizide 10 mg tablet 10 mg PO BID urea [Ureacin-20] 20 % Cream 1 applic TOPICAL BID magnesium oxide 400 mg (241.3 mg magnesium) tablet 400 mg PO DAILY ferrous sulfate 325 mg (65 mg iron) Tablet 325 mg PO QAM Rx Instructions: Take with breakfast hydroxyzine HCl 25 mg Tablet 25 mg PO QID PRN (Reason: Anxiety) ondansetron HCl 4 mg Tablet 4 mg PO Q8H PRN (Reason: NAUSEA/VOMITING) benzonatate 100 mg Capsule 100 mg PO TID PRN (Reason: cough) Qty: 10 0RF diclofenac sodium [Voltaren Arthritis Pain] 1 % Gel 2 g EXT BID Qty: 50 0RF dextromethorphan-guaifenesin 10-100 mg/5 mL Syrup 5 ml PO Q6H PRN (Reason: cough) Qty: 500 0RF cholecalciferol (vitamin D3) 125 mcg (5,000 unit) Tablet 5,000 unit PO QAM Qty: 30 0RF torsemide 100 mg tablet 50 mg PO DAILY Lactinex 1 million cell tablet,chewable 1 tab PO TID Qty: 30 0RF isosorbide dinitrate 30 mg tablet 30 mg PO DAILY guaifenesin [Mucinex] 600 mg Tablet Extended Release 12hr 1,200 mg PO BID lorazepam 0.5 mg tablet 0.5 mg PO Q8 PRN (Reason: Anxiety) Qty: 6 0RF nicotine [Nicoderm CQ] 21 mg/24 hr Patch 24 Hour 21 mg transdermal DAILY Qty: 28 0RF potassium chloride 20 mEq tablet extended release 40 meq PO BID insulin aspart U-100 [Novolog FlexPen U-100 Insulin] 100 unit/mL (3 mL) insulin pen 10 unit subcut TIDM Rx Instructions: take before meal insulin glargine [Lantus U-100 Insulin] 100 unit/mL solution 50 unit SC HS Breztri Aerosphere 160-9-4.8 mcg/actuation HFA aerosol inhaler 2 inh inhalation BID Qty: 10.7 0RF buprenorphine HCl 8 mg tablet, sublingual See Rx Instructions .ROUTE .COMPLEX Rx Instructions: 8 mg sublingually ;Pt takes 20mg total a day: 8mg in AM, 4mg at 1400 and 8mg with evening medications Held warfarin 5 mg tablet 0 mg PO DAILY Hold Instructions: Resume on 07/27/23. Discuss with Coumadin Clinic for dosing Rx Instructions: TAKES DIRECTED BY ANTI COAG. Discharge Orders: Discharge Order (Routine); Ordered 07/26/23 Ordered By: Dipesh Wright Admission Data Admit Date/Time: 07/20/23 21:43 Attending Provider: Dipesh Wright Admit Provider: Everardo Ibarra Primary Care Provider: Roberto Askew Other Providers: [facility],Home Health; Everardo Ibarra
== END 2023-07-26 13:55 | disposition home health service (06) ==
LOC: ED 16:46 → INTOOBSV 21:43 → SUATTDRO 21:43 → 2S 21:43 → 3E 07-25 18:02

== ENCOUNTER 2023-08-22 21:57 | Inpatient (IN) ==
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
--- OUTSIDE RECORDS SUMMARY | 2023-08-22 22:05 | External Medical Summary ---
Author Name Unknown Address Unknown Organization [facility] [id number] [place] [id number] Laboratory Report Ordering Provider Test Date Status TULIO TRONCOSO 08/02/2023 08:00:00 Final Standing order for pt/inr. < br/>Please draw pt/inr every 1 to 4 weeks as requested
Results to [facility]

Warfarin Therapy
INR: 2.0-3.0 conventional anticoagulation
INR: 2.5-3.5 high intensity anticoagulation Observation Date Value Abnormality Reference (Units ) Status PT 08/02/2023 08:00:00 20.0 Above high normal 11 .6-15.2 (seconds) Final INR 08/02/2023 08:00:00 1.7 Above high normal 0. 8-1.2 Final Performing Location [facility] [address] [place] [id number]
--- OUTSIDE RECORDS SUMMARY | 2023-08-22 22:05 | External Medical Summary | Summary of Care ---
Author Name Unknown Organization [facility] Address [address] [place] [address] Phone [phone] Care Team Providers Care Gas Meter Checker Name Role Phone Roberto Askew MD Primary Care Provider + Reason for Visit * Reason Onset Date Comments Appointment 07/22/2023 Encounter Details Date Type Department Care Team ([facility] st Contact Info) Description 07/22/2023 Telephone Ancillary [facility] [address] [place] [address] Kimmy Hill, ALEXANDER Appointment Allergies Active Allergy Reactions Criticality Noted Date [...] as of this encounter (statuses as of 08/02/2023) Medications Medication Sig Dispensed Refills Start Date [...] day as needed. 0 Active nystatin (NYSTOP) 066151 UNIT/GM powderIndications:Cut aneous candidiasis Apply topically to [...] OPD, group C, by GOLD 2017 classification ([facility]),COPD, group D, by GOLD 2017 classification ([facility]) USE 2 PUFFS BY MOUTH EVERY 4 HOURS NEEDED SHORT OF BREATH 6.7 g 5 11/24/2021 Active Magnesium Oxide 400 (241.3 Mg) MG Oral TabletIndications:Cor onary artery disease involving ute mountain coronary artery of ute mountain heart without angina pectoris Take by mouth [...] hemoglobin A1c goal of less than 8.0% ([facility]) Use as directed. 1 Kit 0 10/30/2022 Active Accu-Chek Guide In Vitro Strip (Glucose Blood)Indications:Typ e 2 diabetes mellitus with hemoglobin A1c goal of less than 8.0% ([facility]) Use to check sugars 3 times a day 100 Strip 1 10/30/2022 Active Accu-Chek Softclix LancetsIndications:Ty pe 2 diabetes mellitus with hemoglobin A1c goal of less than 8.0% ([facility]) Use to check sugars 3 times a [...] Active Benzonatate 100 MG Oral Capsule (Tessalon [place]) TAKEONE CAPSULE BY MOUTH EVERY MORNING, ONE AT NOON, AND ONE EVERY EVENING, FOR COUGH. 20 Capsule 0 12/30/2022 Active Isosorbide Dinitrate 30 MG Oral TabletIndications:Cor onary artery disease involving ute mountain coronary artery of ute mountain heart without angina pectoris Take 1 Tablet by mouth in the morning. In the morning.. 90 Tablet 1 04/05/2023 Active Metoprolol Succinate ER 50 MG Oral Tablet Extended Release 24 Hour (toPROL XL)Indications:Harman ry artery disease involving ute mountain coronary artery of ute mountain heart without angina pectoris TAKE 1 & [...] BEFORE BEDTIME. 270 Tablet 10 07/07/2023 Active documented as of this encounter (statuses as of 08/02/2023) Active Problems Problem Noted Date Diagnosed Date [...] 01/24/2021 Opioid dependence, uncomplicated 01/22/2021 History of [place] (myocardial infarction) 01/22/2021 Morbid obesity with BMI of 50.0-59.9, adult 09/20 History of subdural hematoma 10/04/2020 Gastroesophageal reflux disease without esophagi tis 10/04/2020 History of subarachnoid hemorrhage 10/04/2020 Coronary artery disease invo lving ute mountain heart without angina pectoris 10/04/2020 COPD, group [...] as of this encounter (statuses as of 08/02/2023) Resolved Problems Problem Noted Date Diagnosed Date [...] Calculus of kidney 08/20/2015 8 Overview: right, [place] CT Vitamin D deficiency 01/31/2015 018 Body [...] as of this encounter (statuses as of 08/02/2023) Immunizations Name Administration Dates Next Due COVID-19 mRNA, LNP-s, No Pre serve, 2-Dose Series (Nimbuzz) 01/02/2021,12/05/2020 DTP Vaccine 07/19/2017,04/03/2014 Hepatitis B, 20+ [...] encounter Miscellaneous Notes * Telephone Encounter - Kimmy Hill RN - 07/22/2023 2:16 PM EDT Called patient to schedule appointment to see Dr. Askew. Spoke to , Bill is currently in-patient at [facility]. documented in this encounter Plan of Treatment Upcoming Encounters Date Type Department Care Team (Late st Contact Info) Description 08/03/2023 6:00 AM EST Anticoagulation Pharmacy Call Center [phone] [facility] [place] [address] [facility] [address] [facility] [place] [address] Health Maintenance Due Date Last Done Comments DISCUSS TOBACCO CESSATION (REFER TO SMARTSET #2697) 1970 HIV Screening 1985 Pneumococcal Vaccine: Pediatrics (0 to 5 Years) and At-Risk Patients (6 to 64 Years) (2 - PCV) 05/22/2010 05/22/2009 Cologuard 2015 Fecal Occult Blood Test 2015 Sigmoidoscopy 2015 *ADVANCE DIRECTIVE NOT ON FILE 02/03/2020 LUNG CANCER SCREENING - USE SMARTSET 77763 2020 02/10/2019, 07/19/2017, 05/09/2017, Additional history exists Zoster Vaccines (1 of 2) 2020 Hepatitis B (3 of 3 - 19+ 3-dose series) 10/11/2020 06/05/2020, 04/10/2020 Diabetic Foot Exam 12/13/2020 12/14/2019, 1 11/03/2014, 09/03/2014 Albumin/Creatinine Ratio 04/10/2021 04/10/2020 Depression Screening 05/01/2021 05/01/2020, 02/02/20 18 Diabetic Eye Exam 11/19/2021 11/19/2020, 04/10/2020 HbA1c 09/18/2022 03/19/2022, 11/19, 06/05/2021, Additional history exists COVID-19 Vaccine (3 - season) 2023 01/02/2021, 12/05/2020 Influenza Vaccine (FLU shot) (#1) 2023 08/26/2013 O2 ASSESSMENT COMPLETED IN PAST YEAR FOR COPD 08/10/2023 08/10/2022 Colonoscopy 12/09/2023 12/08/2013, 07/26/2013 Colorectal Cancer Screening [...] this encounter Medical Devices Implanted Type Area Molding Room Supervisor Device Identifier Shelf Expiration Date Model / Serial / Lot Tube Flex 3.0x2.5 [id number] - [id number] Implanted:Qty: 1 on 12/07/2014 by Juancarlos Trinidad MD at OR [facility] Left: Finger LANDON : ORTHOPAEDICS 11/18/2015 [id number] / / [id number] documented as of this encounter Advance Directives [...] the patient have Health Care Power of Steel Rule Inspector? No Healthcare Agents on File Name Relationship Healthcare Agent Relationship Communication Estrella Seth Other - (no specific identity) Health Care Power of Steel Rule Inspector Care Teams Gas Meter Checker Relationship Specialty Start Date End Date Roberto Askew MD [address] [place] [address] PCP - General Internal Medicine 04/10/20 documented as of this encounter
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
--- OUTSIDE RECORDS SUMMARY | 2023-08-22 22:05 | External Medical Summary | Summary of Care ---
Author Name Unknown Organization [facility] Address [address] [place] [address] Phone [phone] Care Team Providers Care Braille Typist Name Role Phone Roberto Askew MD Primary Care Provider + Reason for Visit * Reason Onset Date Comments Hospital Follow-Up 07/27/2023 Encounter Details Date Type Department Care Team ([facility] st Contact Info) Description 07/27/[address] [facility] [address] [facility] [place] [address] Roberto Askew MD [address] [place] [address] Hospital Follow-Up Allergies Active Allergy Reactions Criticality Noted Date [...] as of this encounter (statuses as of 07/27/2023) Medications Medication Sig Dispensed Refills Start Date End Date Status polyethylene glycol 3350 (MIRALAX) 255 gram powderIndications:Ob stipation DISSOLVE AND DRINK 1 CAPFUL (17GM) IN [...] day as needed. 0 Active nystatin (NYSTOP) 063064 UNIT/GM powderIndications:Cu taneous candidiasis Apply topically to affected area 3 times a day. 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 25 Tab 5 06/05/2020 Active Ferrous Sulfate 325 (65 Fe) MG Oral Tablet (FEOSOL)Indications: Iron deficiency anemia due to chronic blood [...] Stool Softener 100 MG Oral Capsule (docusate sodium)Indications:C onstipation, unspecified constipation type TAKE ONE CAPSULE BY MOUTH 2 TIMES A DAY 60 Cap 5 09/18/2020 Active Additional Information Patient taking differently: 100 mg Oral BID PRN, Constipation, Reported on 08/10/2022 Fluticasone Propionate 93 MCG/ACT Nasal Exhaler SuspensionIndication s:Allergic rhinitis due to pollen, unspecified seasonality Administer into nostril 2 Sprays daily . 16 mL 1 11/20/2021 Active Albuterol Sulfate HFA 108 (90 Base) MCG/ACT Inhalation Aerosol SolutionIndications: COPD, group C, by GOLD 2017 classification ([facility]),COPD, group D, by GOLD 2017 classification ([facility]) USE 2 PUFFS BY MOUTH EVERY 4 HOURS NEEDED SHORT OF BREATH 6.7 g 5 11/24/2021 Active Magnesium Oxide 400 (241.3 Mg) MG Oral TabletIndications:Co ronary artery disease involving [place] coronary artery of [place] heart without angina pectoris Take by mouth [...] Active Ondansetron HCl 4 MG Oral Tablet (Zofran)Indications: Nausea TAKE 1 TABLET BY MOUTH EVERY 8 HOURS NEEDED NAUSEA 20 Tablet 1 06/15/2022 Active Ipratropium-Albutero l 0.5-2.5 (3) MG/3ML Inhalation Solution (Duoneb)Indications: COPD, severity to be determined (HCC),Wheezing Inhale 3 mL via nebulizer in the morning and 3 mL at noon and 3 mL before bedtime. 360 mL 0 08/10/2022 Active Fluticasone-Salmeter ol 250-50 MCG/ACT Inhalation Aerosol Powder Breath Activated (Advair Diskus)Indications:C OPD, severity to be determined (HCC),Wheezing,Obesi ty hypoventilation syndrome (HCC) Inhale 1 Puff by mouth in the morning and 1 Puff before bedtime. 1 Each 2 08/10/2022 Active Senna 8.6 MG Oral CapsuleIndications:C onstipation, unspecified constipation type Take 8.6 mg by mouth daily as needed for Constipation. 30 Capsule 0 09/29/2022 Active LORazepam 0.5 MG Oral Tablet (Ativan)Indications: Depression with anxiety Take 1 Tablet by mouth every 8 hours as needed for Anxiety. 21 Tablet 0 09/30/2022 Active Accu-Chek Guide Me w/Device KitIndications:Type 2 diabetes mellitus with hemoglobin A1c goal of less than 8.0% ([facility]) Use as directed. 1 Kit 0 10/30/2022 Active Accu-Chek Guide In Vitro Strip (Glucose Blood)Indications:Ty pe 2 diabetes mellitus with hemoglobin A1c goal of less than 8.0% (HCC) Use to check sugars 3 times a day 100 Strip 1 10/30/2022 Active Accu-Chek Softclix LancetsIndications:T ype 2 diabetes mellitus with hemoglobin A1c goal of less than 8.0% (HCC) Use to check sugars 3 times a day 100 Each 3 10/30/2022 Active Ondansetron HCl 4 MG Oral Tablet (Zofran)Indications: Nausea TAKE 1 TABLET BY MOUTH EVERY 8 [...] 12/30/2022 Active Isosorbide Dinitrate 30 MG Oral TabletIndications:Co ronary artery disease involving [place] coronary artery of [place] heart without angina pectoris Take 1 Tablet by mouth in the morning. In the morning.. 90 Tablet 1 04/05/2023 Active Metoprolol Succinate ER 50 MG Oral Tablet Extended Release 24 Hour (toPROL XL)Indications:Coron uziel artery disease involving [place] coronary artery of [place] heart without angina pectoris TAKE 1 & [...] 04/21/2023 Active Famotidine 20 MG Oral Tablet (Pepcid)Indications: Gastroesophageal reflux disease without esophagitis Take 1 Tablet by mouth in the morning. 90 Tablet 1 04/21/2023 Active Finasteride 5 MG Oral Tablet (Proscar)Indications :BPH with obstruction/lower urinary tract symptoms TAKE ONE TABLET BY MOUTH EVERY DAY IN THE MORNING 90 Tablet 1 04/21/2023 Active Warfarin Sodium 5 MG Oral Tablet (Coumadin)Indication s:History of pulmonary embolism TAKE 1/2 TO 1 [...] Terra ER 20 MEQ Oral Tablet Extended ReleaseIndications:H ypokalemia TAKE ONE TABLET EVERY MORNING AND AT [...] Active Cyclobenzaprine HCl 10 MG Oral Tablet (Flexeril)Indication s:Chronic pain syndrome TAKE 1 TABLET TWICE DAILY NEEDED FOR MUSCLE SPASM(S) 60 Tablet 5 05/28/2023 Active DULoxetine HCl 60 MG Oral Capsule Delayed Release Particles (Cymbalta)Indication s:DM type 2 with diabetic peripheral neuropathy (HCC),Chronic bilateral low back pain without sciatica TAKE 1 CAPSULE BY MOUTH IN THE MORNING. 90 Capsule 1 06/14/2023 Active Gabapentin 800 MG Oral Tablet (Neurontin)Indicatio ns:DM type 2 with diabetic peripheral neuropathy (HCC) TAKE 1 TABLET BY MOUTH IN THE MORNING, 1 TABLET AT NOON AND 1 TABLET BEFORE BEDTIME. 270 Tablet 10 07/07/2023 Active glipiZIDE 10 MG Oral Tablet (Glucotrol)Indicatio ns:Diabetes mellitus with nephropathy (HCC) TAKE ONE TABLET BY MOUTH 2 TIMES A DAY 30 MINUTES BEFORE MEALS 180 Tablet 1 07/22/2023 Active Tamsulosin HCl 0.4 MG Oral Capsule (Flomax) TAKE 2 CAPSULES BY MOUTH IN THE MORNING 180 Capsule 1 07/26/2023 Active documented as of this encounter (statuses as of 07/27/2023) Active Problems Problem Noted Date Diagnosed Date [...] 01/24/2021 Opioid dependence, uncomplicated 01/22/2021 History of [place] (myocardial infarction) 01/22/2021 Morbid obesity with BMI of 50.0-59.9, adult 09/20 History of subdural hematoma 10/04/2020 Gastroesophageal reflux disease without esophagi tis 10/04/2020 History of subarachnoid hemorrhage 10/04/2020 Coronary artery disease invo lving [place] heart without angina pectoris 10/04/2020 COPD, group [...] as of this encounter (statuses as of 07/27/2023) Resolved Problems Problem Noted Date Diagnosed Date [...] Calculus of kidney 08/20/2015 8 Overview: right, [place] CT Vitamin D deficiency 01/31/2015 018 Body [...] as of this encounter (statuses as of 07/27/2023) Immunizations Name Administration Dates Next Due COVID-19 mRNA, LNP-s, No Pre serve, 2-Dose Series (Zoomaal) 01/02/2021,12/05/2020 DTP Vaccine 07/19/2017,04/03/2014 Hepatitis B, 20+ [...] (15 years old or older) Yes 01/17/20 20 Cognitive Status Response Date of Assessm ent Because of a physical, menta l, or emotional condition, do you have serious difficulty concentrating, remembering, or making decisions? (5 years old or older Yes-Brain injury begining of 01/17/2020 documented as of this encounter Miscellaneous Notes * Telephone Encounter - Yecenia Bentley RN - 07/27/2023 3:26 PM EST Transitions of Care Note Reason for Referral:Recent Admission Phone visit for follow up: FARIDA Admitted to: [facility], Date: 07/20/23 Discharged to: Home, Date: 07/26/23 Diagnosis driving hospitalization: Acute on Chronic COPD exacerbation, Recurrent UTI Source/Contact: Patient SUBJECTIVE Consent: Verbal consent for review of hospital discharge: Yes REVIEW OF SYSTEMS Patient/Other Reports: Current patient/caregiver problems or concerns: Patient at home with and grandson. Still recovering from hospital stay but better than he was. "I feel like I'm always recovering". CV: Denies problems Pulmonary: SOB- especially upon exertion Chills/Sweats/Fever:Denies chills/sweats Denies fever Appetite:Denies problems such as nausea, vomiting, burning, decreased appetite Current diet: Normal Bowel: denies problems Bladder: Hx of UTI's and ostomy/indwelling catheter: suprapubic cath in place Wound (If applicable): N/A Pain:Current pain management effective: Yes Has pain from neuropathy and sciatic nerve, gabapentin mostly effective. Was given IV tylenol in hospital that helped as well Sleep:Denies problems FUNCTIONAL STATUS: ADL'S: Needs Assistance With:Bathing, Dressing, and Toileting IADL'S: Needs Assistance With:Grocery Shopping, Cooking food, Routine Housework, Taking medications, and Managing money Cognitive and Mental Health: denies problems, alert and oriented x 3, and able to communicate, understand instructions, process information. MEDICATION RECONCILIATION Medications: lots of medications about medications, patient was called in inhaler but needs medication for nebulizer instead. Patient is working with [facility] to get correct medication. Med reconciliation not initiated ASSESSMENT Medication Risk Assessment: see above Did patient fail outpatient treatment? No Discharge instructions available for review? Yes PLAN Symptom Monitoring Interventions:Member/caregiver education - signs and symptoms to contact PrimaryCare (DO NOT DELETE-Three vaz symptoms patient is to report to PCP) 1. Fever/Chills 2. Nausea/Vomiting 3. Worsening/Uncontrolled pain Emergency Medicine PhysicianPlan Examiner of Care interventions/Action Plan: Develop/confirm action plan for acute exacerbation and 5 - 7 day follow-up with PCP in place - Date: 08/02/23 Educated on role of FARIDA completed with patient/caregiver. Educated patient/caregiver on patient right to have input on FARIDA plan of care. Verification of Home Health/DME if indicated: NO N/A Identified Care Gaps: Yes Care Gaps closed this call: Appointment made or confirmed, Plan of care optimization, Post discharge appointment, and Transition of Care follow-up communication Re-evaluation of Plan of Care and progress towards goals achievement: Patient education this visit: Verbal, see above Plan to follow-up as previously scheduled, instructed to call Primary Care Provider with change in symptoms or as needed before next follow-up, discharge needs met, verbalizes understanding and agrees with plan. Yecenia Bentley RN documented in this encounter Plan of Treatment Upcoming Encounters Date Type Department Care Team (Late st Contact Info) Description 08/02/2023 12:00 PM EST Office Visit General Internal Medicine [facility] [place] [address] [place], [place] [address] Roberto Askew MD [address] [facility] [place] [address] 08/03/2023 6:00 AM EST Anticoagulation Pharmacy Call Center [phone] [facility] [place] [address] [facility], [facility] [address] [facility] [place] [address] Health Maintenance Due Date Last Done Comments DISCUSS TOBACCO CESSATION (REFER TO SMARTSET #5691) 1970 HIV Screening 1985 Pneumococcal Vaccine: Pediatrics (0 to 5 Years) and At-Risk Patients (6 to 64 Years) (2 - PCV) 05/22/2010 05/22/2009 Cologuard 2015 Fecal Occult Blood Test 2015 Sigmoidoscopy 2015 *ADVANCE DIRECTIVE NOT ON FILE 02/03/2020 LUNG CANCER SCREENING - USE SMARTSET 86711 2020 02/10/2019, 07/19/2017, 05/09/2017, Additional history exists Zoster Vaccines (1 of 2) 2020 Hepatitis B (3 of 3 - 19+ 3-dose series) 10/11/2020 06/05/2020, 04/10/2020 Diabetic Foot Exam 12/13/2020 12/14/2019, 1 11/03/2014, 09/03/2014 Albumin/Creatinine Ratio 04/10/2021 04/10/2020 Depression Screening 05/01/2021 05/01/2020, 02/02/20 Diabetic Eye Exam 11/19/2021 11/19/2020, 04/10/2020 HbA1c 09/18/2022 03/19/2022, 03/05/2022, 06/05/2021, Additional history exists COVID-19 Vaccine (3 [...] this encounter Medical Devices Implanted Type Area Transportation Engineer Device Identifier Shelf Expiration Date Model / Serial / Lot Tube Flex 3.0x2.5 [id number] - [id number] Implanted:Qty: 1 on 12/07/2014 by Juancarlos Trinidad MD at [facility] Left: Finger [employer] : ORTHOPAEDICS 11/18/2015 [id number] / / [id number] documented as of this encounter Advance Directives [...] the patient have Health Care Power of Tester Regulator? No Healthcare Agents on File Name Relationship Healthcare Agent Relationship Communication Estrella Seth Other - (no specific identity) Health Care Power of Tester Regulator Care Teams Braille Typist Relationship Specialty Start Date End Date Roberto Askew MD [address] [facility] [place] [address] PCP - General Internal Medicine 04/10/20 documented as of this encounter
--- OUTSIDE RECORDS SUMMARY | 2023-08-22 22:05 | External Medical Summary ---
Author Name Unknown Address Unknown Organization K0G[facility] [address] [place] [id number] Laboratory Report Ordering Provider Test Date Status TULIO TRONCOSO 08/17/2023 10:14:00 Final Standing order for pt/inr. < br/>Please draw pt/inr every 1 to 4 weeks as requested
Results to [facility]

Warfarin Therapy
INR: 2.0-3.0 conventional anticoagulation
INR: 2.5-3.5 high intensity anticoagulation Observation Date Value Abnormality Reference (Units ) Status PT 08/17/2023 10:14:00 20.7 Above high normal 11 .6-15.2 (seconds) Final INR 08/17/2023 10:14:00 1.8 Above high normal 0. 8-1.2 Final Performing Location [facility] [address] [place] [id number]
--- OUTSIDE RECORDS SUMMARY | 2023-08-22 22:05 | External Medical Summary | Summary of Care ---
Author Name Unknown Organization [facility] Address [address] [place] [address] Phone [phone] Care Team Providers Care Senior Engineering Team Leader Name Role Phone Roberto Askew MD Primary Care Provider + Reason for Visit * Reason Comments Dosage Adjustment Via Phone (anticoag Cl inic) Encounter Details Date Type Department Care Team (Latest Contact Info) Description 08/03/2023 6:00 AM EST Anticoagulation Pharmacy Call Center [phone] [place] [address] [facility] [address] [place] [address] History of pulmonary embolism* Allergies Active Allergy Reactions Criticality Noted Date [...] as of this encounter (statuses as of 08/03/2023) Medications Medication Sig Dispensed Refills Start Date [...] day as needed. 0 Active nystatin (NYSTOP) 967753 UNIT/GM powderIndications:Cut aneous candidiasis Apply topically to [...] OPD, group C, by GOLD 2017 classification ([facility]),COPD, group D, by GOLD 2017 classification ([facility]) USE 2 PUFFS BY MOUTH EVERY 4 HOURS NEEDED SHORT OF BREATH 6.7 g 5 11/24/2021 Active Magnesium Oxide 400 (241.3 Mg) MG Oral TabletIndications:Cor onary artery disease involving [place] coronary artery of [place] heart without angina pectoris Take by mouth [...] hemoglobin A1c goal of less than 8.0% ([facility]) Use as directed. 1 Kit 0 10/30/2022 Active Accu-Chek Guide In Vitro Strip (Glucose Blood)Indications:Typ e 2 diabetes mellitus with hemoglobin A1c goal of less than 8.0% ([facility]) Use to check sugars 3 times a day 100 Strip 1 10/30/2022 Active Accu-Chek Softclix LancetsIndications:Ty pe 2 diabetes mellitus with hemoglobin A1c goal of less than 8.0% ([facility]) Use to check sugars 3 times a [...] MG Oral TabletIndications:Cor onary artery disease involving [place] coronary artery of [place] heart without angina pectoris Take 1 Tablet by mouth in the morning. In the morning.. 90 Tablet 1 04/05/2023 Active Metoprolol Succinate ER 50 MG Oral Tablet Extended Release 24 Hour (toPROL XL)Indications:Harman ry artery disease involving [place] coronary artery of [place] heart without angina pectoris TAKE 1 & [...] as of this encounter (statuses as of 08/03/2023) Active Problems Problem Noted Date Diagnosed Date [...] 01/24/2021 Opioid dependence, uncomplicated 01/22/2021 History of [place] (myocardial infarction) 01/22/2021 Morbid obesity with BMI of 50.0-59.9, adult 09/20 History of subdural hematoma 10/04/2020 Gastroesophageal reflux disease without esophagi tis 10/04/2020 History of subarachnoid hemorrhage 10/04/2020 Coronary artery disease invo lving [place] heart without angina pectoris 10/04/2020 COPD, group [...] as of this encounter (statuses as of 08/03/2023) Resolved Problems Problem Noted Date Diagnosed Date [...] Calculus of kidney 08/20/2015 8 Overview: right, [place] CT Vitamin D deficiency 01/31/2015 018 Body [...] as of this encounter (statuses as of 08/03/2023) Immunizations Name Administration Dates Next Due COVID-19 mRNA, LNP-s, No Pre serve, 2-Dose Series (AgSquared) 01/02/2021,12/05/2020 DTP Vaccine 07/19/2017,04/03/2014 Hepatitis B, 20+ [...] of 01/17/2020 documented as of this encounter Progress Notes * Waleska Shipley, auditing manager - 08/03/2023 10:41 AM EST Contacts Type Contact Phone/Fax 08/03/2023 10:39 AM EST Phone (Outgoing) Stanton Milner (Self) [phone] (H) Spoke to Patient Subjective Patient Findings Negatives: Signs/symptoms of thrombosis, Signs/symptoms of bleeding, Change in health, Change in alcohol use, Change in activity, Upcoming invasive procedure, Missed doses, Extra doses, Change in medications, Change in diet/appetite, Bruising Advised patient to contact Anticoagulation Clinic if any unusual bruising or bleeding, recent illness, changes in medication, or questions/concerns. PT/INR results, Coumadin dose instructions, and next PT/INR date communicated as noted by Pharmacist: Yes ARTEM HORNE Tech 08/03/2023, 10:41 AM * Keren Sanchez RPh - 08/03/2023 8:14 AM EST Images from the original note were not included. Coumadin Clinic (region specific) Objective Current Warfarin Dose As of 08/03/2023 Warfarin maintenance plan: 5 mg (5 mg x 1) every Wed, Fri; 2.5 mg (5 mg x 0.5) all other days INR Result As of 08/03/2023 INR goal: 2.0-3.0 INR used for dosin.7 (08/02/2023) Assessment & Plan Warfarin Plan As of 08/03/2023 Full warfarin instructions: 08/03: 5 mg; Otherwise 5 mg every Wed, Fri; 2.5 mg all other days Next INR check: 08/09/2023 Repeat PT/INR in 1 week(s) Weekly dose: not changed Additional Dosing Information: Description [facility] - pt prefers [facility] at this time Tech to contact patient with dose instructions as noted. Keren Sanchez RPh 08/03/2023, 8:15 AM documented in this encounter Plan of Treatment Upcoming Encounters Date Type Department Care Team (Late st Contact Info) Description 08/09/2023 8:10 AM EST Laboratory Lab Mobile Phlebotomy [facility] [address] [place] [address] [facility] [place] Home Draw [address] [place] [address] Health Maintenance Due Date Last Done Comments DISCUSS TOBACCO CESSATION (REFER TO SMARTSET #9511) 1970 HIV Screening 1985 Pneumococcal Vaccine: Pediatrics (0 to 5 Years) and At-Risk Patients (6 to 64 Years) (2 - PCV) 05/22/2010 05/22/2009 Cologuard 2015 Fecal Occult Blood Test 2015 Sigmoidoscopy 2015 *ADVANCE DIRECTIVE NOT ON FILE 02/03/2020 LUNG CANCER SCREENING - USE SMARTSET [id number] 2020 02/10/2019, 07/19/2017, 05/09/2017, Additional history exists Zoster Vaccines (1 of 2) 2020 Hepatitis B (3 of 3 - 19+ 3-dose series) 10/11/2020 06/05/2020, 04/10/2020 Diabetic Foot Exam 12/13/2020 12/14/2019, 1 11/03/2014, 09/03/2014 Albumin/Creatinine Ratio 04/10/2021 04/10/2020 Depression Screening 05/01/2021 05/01/2020, 02/02/20 18 Diabetic Eye Exam 11/19/2021 11/19/2020, 04/10/2020 HbA1c 09/18/2022 03/19/2022, 03/05/2022, 06/05/2021, Additional history exists COVID-19 Vaccine ( - season) 2023 01/02/2021, 12/05/2020 Influenza Vaccine [...] this encounter Medical Devices Implanted Type Area Med Care Manager Device Identifier Shelf Expiration Date Model / Serial / Lot Tube Flex 3.0x2.5 [id number] - [id number] Implanted:Qty: 1 on 12/07/2014 by Juancarlos Trinidad MD at [facility] Left: Finger [employer] : ORTHOPAEDICS 11/18/2015 [id number] / / [id number] documented as of this encounter Visit Diagnoses Diagnosis History of pulmonary embolism- Primary Personal history of pulmonary embolism documented in this encounter Advance Directives Latest Code Status [...] the patient have Health Care Power of Geriatric Nurse? No Healthcare Agents on File Name Relationship Healthcare Agent Relationship Communication Estrella Seth Other - (no specific identity) Health Care Power of Geriatric Nurse Care Teams Senior Engineering Team Leader Relationship Specialty Start Date End Date Roberto Askew MD [address] [place] [address] PCP - General Internal Medicine 04/10/20 documented as of this encounter
--- OUTSIDE RECORDS SUMMARY | 2023-08-22 22:05 | External Medical Summary | Summary of Care ---
Author Name Unknown Organization [facility] Address [address] [place] [address] Phone [phone] Care Team Providers Care Gymnasium Teacher Name Role Phone Roberto Askew MD Primary Care Provider + Reason for Visit * Reason Comments Dosage Adjustment Via Phone (anticoag Cl inic) Encounter Details Date Type Department Care Team (Latest Contact Info) Description 08/18/2023 6:00 AM EST Anticoagulation Pharmacy Call Center [phone] [place] [address] [facility] [address] [place] [address] History of pulmonary embolism* Allergies Active Allergy [...] as of this encounter (statuses as of 08/18/2023) Medications Medication Sig Dispensed Refills Start Date [...] day as needed. 0 Active nystatin (NYSTOP) 027477 UNIT/GM powderIndications:Cut aneous candidiasis Apply topically to [...] OPD, group C, by GOLD 2017 classification ([facility]),COPD, group D, by GOLD 2017 classification ([facility]) USE 2 PUFFS BY MOUTH EVERY 4 HOURS NEEDED SHORT OF BREATH 6.7 g 5 11/24/2021 Active Magnesium Oxide 400 (241.3 Mg) MG Oral TabletIndications:Cor onary artery disease involving kivalina coronary artery of kivalina heart without angina pectoris Take by mouth [...] hemoglobin A1c goal of less than 8.0% ([facility]) Use as directed. 1 Kit 0 10/30/2022 Active Accu-Chek Guide In Vitro Strip (Glucose Blood)Indications:Typ e 2 diabetes mellitus with hemoglobin A1c goal of less than 8.0% ([facility]) Use to check sugars 3 times a day 100 Strip 1 10/30/2022 Active Accu-Chek Softclix LancetsIndications:Ty pe 2 diabetes mellitus with hemoglobin A1c goal of less than 8.0% ([facility]) Use to check sugars 3 [...] MG Oral TabletIndications:Cor onary artery disease involving kivalina coronary artery of kivalina heart without angina pectoris Take 1 Tablet by mouth in the morning. In the morning.. 90 Tablet 1 04/05/2023 Active Metoprolol Succinate ER 50 MG Oral Tablet Extended Release 24 Hour (toPROL XL)Indications:Harman ry artery disease involving kivalina coronary artery of kivalina heart without angina pectoris TAKE 1 & [...] as of this encounter (statuses as of 08/18/2023) Active Problems Problem Noted Date Diagnosed Date [...] 01/24/2021 Opioid dependence, uncomplicated 01/22/2021 History of IL (myocardial infarction) 01/22/2021 Morbid obesity with BMI of 50.0-59.9, adult 09/20 History of subdural hematoma 10/04/2020 Gastroesophageal reflux disease without esophagi tis 10/04/2020 History of subarachnoid hemorrhage 10/04/2020 Coronary artery disease invo lving kivalina heart without angina pectoris 10/04/2020 COPD, group [...] as of this encounter (statuses as of 08/18/2023) Resolved Problems Problem Noted Date Diagnosed Date [...] Calculus of kidney 08/20/2015 8 Overview: right, [place] CT Vitamin D deficiency 01/31/2015 018 Body [...] as of this encounter (statuses as of 08/18/2023) Immunizations Name Administration Dates Next Due COVID-19 mRNA, LNP-s, No Pre serve, 2-Dose Series ([employer]) 01/02/2021,12/05/2020 DTP Vaccine 07/19/2017,04/03/2014 Hepatitis B, 20+ [...] as of this encounter Progress Notes * Ania Medina PHARM Tech - 08/18/2023 8:34 AM EST Contacts Type Contact Phone/Fax 08/18/2023 08:32 AM EST Phone (Outgoing) Stanton Milner (Self) [phone] (H) Left Message Subjective Advised patient to contact Anticoagulation Clinic if any unusual bruising or bleeding, recent illness, changes in medication, or questions/concerns. PT/INR results, Coumadin dose instructions, and next PT/INR date communicated as noted by Pharmacist: Yes ARTEM WADE 08/18/2023, 8:34 AM * Keren Sanchez [facility] - 08/18/2023 8:02 AM EST Images from the original note were not included. Coumadin Clinic (region specific) Objective Current Warfarin Dose As of 08/18/2023 Warfarin maintenance plan: 5 mg (5 mg x 1) every Wed, Fri; 2.5 mg (5 mg x 0.5) all other days INR Result As of 08/18/2023 INR goal: 2.0-3.0 INR used for dosin.8 (08/17/2023) Assessment & Plan Warfarin Plan As of 08/18/2023 Full warfarin instructions: 08/18: 7.5 mg; Otherwise 5 mg every Wed, Fri; 2.5 mg all other days Next INR check: 08/26/2023 Repeat PT/INR in 1.5 week(s) Weekly dose: not changed Additional Dosing Information: Description L(Count includes the [facility]) - pt prefers [facility] at this time Tech to contact patient with dose instructions as noted. Keren Sanchez RPh 08/18/2023, 8:02 AM documented in this encounter Plan of Treatment Upcoming Encounters Date Type Department Care Team (Late st Contact Info) Description 08/27/2023 6:00 AM EST Anticoagulation Pharmacy Call Center [phone] [facility] [place] [address] [facility] [address] [facility] [place] [address] Health Maintenance Due Date Last Done Comments DISCUSS TOBACCO CESSATION (REFER TO SMARTSET #8727) 1970 HIV Screening 1985 O2 ASSESSMENT COMPLETED IN PAST YEAR FOR COPD 1988 Pneumococcal Vaccine: Pediatrics (0 to 5 Years) and At-Risk Patients (6 to 64 Years) (2 - PCV) 05/22/2010 05/22/2009 Cologuard 2015 Fecal Occult Blood Test 2015 Sigmoidoscopy 2015 *ADVANCE DIRECTIVE NOT ON FILE 02/03/2020 LUNG CANCER SCREENING - USE SMARTSET 09222 2020 02/10/2019, 07/19/2017, 05/09/2017, Additional history exists Zoster Vaccines (1 of 2) 2020 Hepatitis B (3 of 3 - 19+ 3-dose series) 10/11/2020 06/05/2020, 04/10/2020 Diabetic Foot Exam 12/13/2020 12/14/2019, 1 11/03/2014, 09/03/2014 Albumin/Creatinine Ratio 04/10/2021 04/10/2020 Depression Screening 05/01/2021 05/01/2020, 02/02/20 18 Diabetic Eye Exam 11/19/2021 11/19/2020, 04/10/2020 HbA1c 09/18/2022 03/19/2022, 11/19, 06/05/2021, Additional history exists COVID-19 Vaccine ( - 2022- season) 2023 01/02/2021, 12/05/2020 Influenza [...] this encounter Medical Devices Implanted Type Area Press Offbearer Device Identifier Shelf Expiration Date Model / Serial / Lot Tube Flex 3.0x2.5 [id number] - [id number] Implanted:Qty: 1 on 12/07/2014 by Juancarlos Trinidad MD at [facility] Left: Finger [employer]ANDON : ORTHOPAEDICS 11/18/2015 [id number] / / [id number] documented as of this encounter Visit Diagnoses [...] the patient have Health Care Power of Gunner'S Mate M? No Healthcare Agents on File Name Relationship Healthcare Agent Relationship Communication Estrella Seth Other - (no specific identity) Health Care Power of Gunner'S Mate M Care Teams Gymnasium Teacher Relationship Specialty Start Date End Date Roberto Askew MD [address] [place] [address] PCP - General Internal Medicine 04/10/20 documented as of this encounter
--- OUTSIDE RECORDS SUMMARY | 2023-08-22 22:05 | External Medical Summary | Summary of Care ---
Author Name Unknown Organization [facility] Address [address] [place] [address] Phone [phone] Care Team Providers Care Utilities Operator Name Role Phone Roberto Askew MD Primary Care Provider + Reason for Visit * Reason Onset Date Comments Appointment 07/13/2023 Encounter Details Date Type Department Care Team ([facility] st Contact Info) Description 07/13/2023 Telephone Ancillary [facility] [address] [place] [address] Kimmy Hill, RN Appointment Allergies Active Allergy Reactions Criticality Noted [...] Status polyethylene glycol 3350 (MIRALAX) 255 gram powderIndications:O bstipation DISSOLVE AND DRINK 1 CAPFUL (17GM) IN LIQUID ONCE DAILY. 527 g 5 09/28/19 19 Active Additional Information Patient taking differently: 17 g Oral DAILY PRN, Constipation, (No instructions reported), Reported on 01/22/2021 Aspirin 81 MG Tablet Take 81 mg by mouth daily. 0 Active Urea 20 % CREAIndications:Dry skin dermatitis Apply to affected areas twice daily to dry area Soles, legs 113 g 1 12/14/19 20 Active Lactobacillus (LACTINEX) chewable tablet Take by mouth 1 Tablet 3 times a day . 0 04/19/20 22 Active hydrOXYzine HCl 25 MG tablet Take 25 mg by mouth 4 times a day as needed. 0 Active nystatin (NYSTOP) 953143 UNIT/GM powderIndications:C utaneous candidiasis Apply topically to affected area 3 times a day. 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 25 Tab 5 06/05/20 20 Active Ferrous Sulfate 325 (65 Fe) MG Oral Tablet (FEOSOL)Indications :Iron deficiency anemia due to chronic blood loss Take 1 Tab by mouth daily with breakfast. 90 Tab 1 06/20/20 Active Buprenorphine HCl 8 MG Sublingual Tablet Sublingual (SUBUTEX) Place 8 mg under the tongue. Three times daily 0 Active oxygen IN GAS Use 4 L/min(Oxygen) as directed at bedtime as needed for Shortness of Breath. 1 Each 1 08/30/20 20 Active QC Stool Softener 100 MG Oral Capsule (docusate sodium)Indications: Constipation, unspecified constipation type TAKE ONE CAPSULE BY MOUTH 2 TIMES A DAY 60 Cap 5 09/18/20 20 Active Additional Information Patient taking differently: 100 mg Oral BID PRN, Constipation, Reported on 08/10/2022 Fluticasone Propionate 93 MCG/ACT Nasal Exhaler SuspensionIndicatio ns:Allergic rhinitis due to pollen, unspecified seasonality Administer into nostril 2 Sprays daily . 16 mL 1 11/21/19 22 Active Albuterol Sulfate HFA 108 (90 Base) MCG/ACT Inhalation Aerosol SolutionIndications :COPD, group C, by GOLD 2017 classification ([facility]),COPD, group D, by GOLD 2017 classification ([facility]) USE 2 PUFFS BY MOUTH EVERY 4 HOURS NEEDED SHORT OF BREATH 6.7 g 5 11/25/19 22 Active Magnesium Oxide 400 (241.3 Mg) MG Oral TabletIndications:C oronary artery disease involving zuni coronary artery of zuni heart without angina pectoris Take by mouth 400 mg in the morning. 30 Tablet 11 12/11/19 22 Active Insulin Glargine 100 UNIT/ML Subcutaneous Solution Pen-injector (Lantus) Inject under the skin 50 Units before bedtime. 10 Each 5 03/27/20 22 Active NovoLOG FlexPen 100 UNIT/ML Subcutaneous Solution Pen-injector (insulin aspart) Inject under the skin 1 Units three times a day with meals . Units as per sliding scale as instructed by provider to cover for steroid coverage when warranted 1 Each 0 03/27/20 22 Active Mucinex DM 30-600 MG Oral Tablet Extended Release 12 Hour Take by mouth 1 Tablet 2 times a day as needed for Cough. Take with plenty of water. Do not cut, crush or chew 40 Tablet 2 04/03/20 22 Active Ondansetron HCl 4 MG Oral Tablet (Zofran)Indications :Nausea TAKE 1 TABLET BY MOUTH EVERY 8 HOURS NEEDED NAUSEA 20 Tablet 1 06/15/20 22 Active Ipratropium-Albuter ol 0.5-2.5 (3) MG/3ML Inhalation Solution (Duoneb)Indications :COPD, severity to be determined (HCC),Wheezing Inhale 3 mL via nebulizer in the morning and 3 mL at noon and 3 mL before bedtime. 360 mL 0 08/10/20 22 Active Fluticasone-Salmete rol 250-50 MCG/ACT Inhalation Aerosol Powder Breath Activated (Advair Diskus)Indications: COPD, severity to be determined (HCC),Wheezing,Obes ity hypoventilation syndrome (HCC) Inhale 1 Puff by mouth in the morning and 1 Puff before bedtime. 1 Each 2 08/10/20 22 Active Senna 8.6 MG Oral CapsuleIndications: Constipation, unspecified constipation type Take 8.6 mg by mouth daily as needed for Constipation. 30 Capsule 0 09/29/19 23 Active LORazepam 0.5 MG Oral Tablet (Ativan)Indications :Depression with anxiety Take 1 Tablet by mouth every 8 hours as needed for Anxiety. 21 Tablet 0 09/30/19 23 Active Accu-Chek Guide Me w/Device KitIndications:Type 2 diabetes mellitus with hemoglobin A1c goal of less than 8.0% ([facility]) Use as directed. 1 Kit 0 10/30/19 23 Active Accu-Chek Guide In Vitro Strip (Glucose Blood)Indications:T ype 2 diabetes mellitus with hemoglobin A1c goal of less than 8.0% ([facility]) Use to check sugars 3 times a day 100 Strip 1 10/30/19 23 Active Accu-Chek Softclix LancetsIndications: Type 2 diabetes mellitus with hemoglobin A1c goal of less than 8.0% ([facility]) Use to check sugars 3 times a day 100 Each 3 10/30/19 23 Active Ondansetron HCl 4 MG Oral Tablet (Zofran)Indications :Nausea TAKE 1 TABLET BY MOUTH EVERY 8 HOURS NEEDED NAUSEA 20 Tablet 1 12/04/19 23 Active Spironolactone 25 MG Oral Tablet (Aldactone) Take 1 Tablet by mouth in the morning. In the morning.. 90 Tablet 2 12/11/19 23 Active Ondansetron HCl 4 MG Oral Tablet (Zofran) TAKE 1 TABLET EVERY 8 HOURS NEEDED FOR NAUSEA 20 Tablet 1 12/25/19 23 Active guaiFENesin-Codeine 100-10 MG/5ML Oral Syrup (Robitussin AC) Take 5 mL by mouth 3 times a day as needed for Cough. 120 mL 0 12/26/19 23 Active Benzonatate 100 MG Oral Capsule (Jessica Rios) TAKEONE CAPSULE BY MOUTH EVERY MORNING, ONE AT NOON, AND ONE EVERY EVENING, FOR COUGH. 20 Capsule 0 12/31/19 23 Active Isosorbide Dinitrate 30 MG Oral TabletIndications:C oronary artery disease involving zuni coronary artery of zuni heart without angina pectoris Take 1 Tablet by mouth in the morning. In the morning.. 90 Tablet 1 04/05/20 23 Active Metoprolol Succinate ER 50 MG Oral Tablet Extended Release 24 Hour (toPROL XL)Indications:Freddie nary artery disease involving zuni coronary artery of zuni heart without angina pectoris TAKE 1 & 1/2 TABLETS by mouth 2 TIMES A DAY 270 Tablet 1 04/05/20 23 Active Folic Acid 1 MG Oral Tablet Take 1 Tablet by mouth in the morning. 90 Tablet 2 04/21/20 Active Omeprazole 20 MG Oral Capsule Delayed Release (PriLOSEC) TAKE ONE CAPSULE BY MOUTH 1 HOUR BEFORE THE 1ST MEAL OF THE DAY 90 Capsule 1 04/21/20 23 Active Famotidine 20 MG Oral Tablet (Pepcid)Indications :Gastroesophageal reflux disease without esophagitis Take 1 Tablet by mouth in the morning. 90 Tablet 1 04/21/20 23 Active Finasteride 5 MG Oral Tablet (Proscar)Indication s:BPH with obstruction/lower urinary tract symptoms TAKE ONE TABLET BY MOUTH EVERY DAY IN THE MORNING 90 Tablet 1 04/21/20 23 Active Warfarin Sodium 5 MG Oral Tablet (Coumadin)Indicatio ns:History of pulmonary embolism TAKE 1/2 TO 1 TABLET EVERY DAY DIRECTED BY COUMADIN CLINIC. 90 Tablet 3 04/23/20 23 Active metOLazone 2.5 MG Oral Tablet (Zaroxolyn) TAKE 1 TABLET ONE TIME DAILY ON WEDNESDAY, WEDNESDAY, AND WEDNESDAY ONLY. 39 Tablet 1 05/10/20 23 Active Atorvastatin Calcium 80 MG Oral Tablet (Lipitor) Take 1 Tablet by mouth in the morning. 90 Tablet 3 05/05/20 23 Active Potassium Chloride Terra ER 20 MEQ Oral Tablet Extended ReleaseIndications: Hypokalemia TAKE ONE TABLET EVERY MORNING AND AT BEDTIME 180 Tablet 2 05/11/20 Active Torsemide 100 MG Oral Tablet (Demadex) Take 0.5 Tablets by mouth in the morning. 5 Tablet 0 05/11/20 23 Active Amoxicillin-Pot Clavulanate 875-125 MG Oral Tablet (Augmentin) Take 1 Tablet by mouth in the morning and 1 Tablet before bedtime. For 7 days. 0 05/26/20 23 Active Lactobacillus Probiotic Oral Tablet Take 3 Billion Cells by mouth in the morning. For 10 days. 0 05/26/20 23 Active predniSONE 20 MG Oral Tablet (Deltasone) Take 1 Tablet by mouth in the morning. For 4 days. 0 05/26/20 23 Active Cyclobenzaprine HCl 10 MG Oral Tablet (Flexeril)Indicatio ns:Chronic pain syndrome TAKE 1 TABLET TWICE DAILY NEEDED FOR MUSCLE SPASM(S) 60 Tablet 5 05/28/20 23 Active DULoxetine HCl 60 MG Oral Capsule Delayed Release Particles (Cymbalta)Indicatio ns:DM type 2 with diabetic peripheral neuropathy (HCC),Chronic bilateral low back pain without sciatica TAKE 1 CAPSULE BY MOUTH IN THE MORNING. 90 Capsule 1 06/14/20 Active Gabapentin 800 MG Oral Tablet (Neurontin)Indicati ons:DM type 2 with diabetic peripheral neuropathy (HCC) TAKE 1 TABLET BY MOUTH IN THE MORNING, 1 TABLET AT NOON AND 1 TABLET BEFORE BEDTIME. 270 Tablet 10 07/07/20 Active glipiZIDE 10 MG Oral Tablet (Glucotrol)Indicati ons:Diabetes mellitus with nephropathy (HCC) TAKE ONE TABLET BY MOUTH 2 TIMES A DAY 30 MINUTES BEFORE A MEAL 180 Tablet 1 12/11/19 23 023 Discontinued Tamsulosin HCl 0.4 MG Oral Capsule (Flomax) Take 2 Capsules by mouth in the morning. 60 Capsule 1 04/21/20 23 023 Discontinued(Re fill) documented as of this encounter (statuses as [...] hemorrhage 10/04/2020 Coronary artery disease invo lving zuni heart without angina pectoris 10/04/2020 COPD, group [...] Calculus of kidney 08/20/2015 8 Overview: right, [place] CT Vitamin D deficiency 01/31/2015 018 Body [...] of inactive term Other forms of migraine, rush ruiz mention of intractable migraine without mention of [...] mRNA, LNP-s, No Pre serve, 2-Dose Series ([employer]ZE) 01/02/2021,12/05/2020 DTP Vaccine 07/19/2017,04/03/2014 Hepatitis B, 20+ [...] Telephone Encounter - Kimmy Hill RN - 07/14/2023 3:43 PM EDT Called patient to set up appointment with Dr. Askew left message requesting he call back. * Telephone Encounter - Bear Couch OSA - 07/14/2023 10:52 AM EDT Pt returning missed call, requested nurse call him back, will be tentative to phone documented in this encounter Plan of Treatment Upcoming Encounters Date Type Department Care Team (Late st Contact Info) Description 08/03/2023 6:00 AM EST Anticoagulation Pharmacy Call Center [phone] [place] [address] [facility] [address] [facility] [place] [address] Health Maintenance Due Date Last Done Comments DISCUSS TOBACCO CESSATION (REFER TO SMARTSET #6228) 1970 HIV Screening 1985 Pneumococcal Vaccine: Pediatrics (0 to 5 Years) and At-Risk Patients (6 to 64 Years) (2 - PCV) 05/22/2010 05/22/2009 Cologuard 2015 Fecal Occult Blood Test 2015 Sigmoidoscopy 2015 *ADVANCE DIRECTIVE NOT ON FILE 02/03/2020 LUNG CANCER SCREENING - USE SMARTSET 68917 2020 02/10/2019, 07/19/2017, 05/09/2017, Additional history exists Zoster Vaccines (1 of 2) 2020 Hepatitis B (3 of 3 - 19+ 3-dose series) 10/11/2020 06/05/2020, 04/10/2020 Diabetic Foot Exam 12/13/2020 12/14/2019, 1 11/03/2014, 09/03/2014 Albumin/Creatinine Ratio 04/10/2021 04/10/2020 Depression Screening 05/01/2021 05/01/2020, 02/02/20 18 Diabetic Eye Exam 11/19/2021 11/19/2020, 04/10/2020 HbA1c 09/18/2022 03/19/2022, /05/2022, 06/05/2021, Additional history exists COVID-19 Vaccine (3 [...] this encounter Medical Devices Implanted Type Area Drum Sealer Device Identifier Shelf Expiration Date Model / Serial / Lot Tube Flex 3.0x2.5 [id number] - [id number] Implanted:Qty: 1 on 12/07/2014 by Juancarlos Trinidad MD at [facility] Left: Finger [employer] : ORTHOPAEDICS 11/18/2015 [id number] / / [id number] documented as of this encounter Advance Directives [...] the patient have Health Care Power of Cuff Turner? No Healthcare Agents on File Name Relationship Healthcare Agent Relationship Communication Estrella Seth Other - (no specific identity) Health Care Power of Cuff Turner Care Teams Utilities Operator Relationship Specialty Start Date End Date Roberto Askew MD [address] [place] [address] PCP - General Internal Medicine 04/10/20 documented as of this encounter
--- OUTSIDE RECORDS SUMMARY | 2023-08-22 22:05 | External Medical Summary | Summary of Care ---
Author Name Unknown Organization [facility] Address [address] [place] [address] Phone [phone] Care Team Providers Care Glass Forming Crew Member Name Role Phone Roberto Askew MD Primary Care Provider + Reason for Visit * Reason Comments Dosage Adjustment Via Phone (anticoag Cl inic) Encounter Details Date Type Department Care Team (Latest Contact Info) Description 08/10/2023 6:00 AM EST Anticoagulation Pharmacy Call Center [phone] [place] [address] [facility] [address] [place] [address] History of pulmonary embolism* Allergies Active Allergy [...] as of this encounter (statuses as of 08/10/2023) Medications Medication Sig Dispensed Refills Start Date [...] day as needed. 0 Active nystatin (NYSTOP) 205897 UNIT/GM powderIndications:Cut aneous candidiasis Apply topically to [...] OPD, group C, by GOLD 2017 classification ([facility]),COPD, group D, by GOLD 2017 classification ([facility]) USE 2 PUFFS BY MOUTH EVERY 4 HOURS NEEDED SHORT OF BREATH 6.7 g 5 11/24/2021 Active Magnesium Oxide 400 (241.3 Mg) MG Oral TabletIndications:Cor onary artery disease involving kenaitze coronary artery of kenaitze heart without angina pectoris Take by mouth [...] hemoglobin A1c goal of less than 8.0% ([facility]) Use as directed. 1 Kit 0 10/30/2022 Active Accu-Chek Guide In Vitro Strip (Glucose Blood)Indications:Typ e 2 diabetes mellitus with hemoglobin A1c goal of less than 8.0% ([facility]) Use to check sugars 3 times a day 100 Strip 1 10/30/2022 Active Accu-Chek Softclix LancetsIndications:Ty pe 2 diabetes mellitus with hemoglobin A1c goal of less than 8.0% ([facility]) Use to check sugars [...] MG Oral TabletIndications:Cor onary artery disease involving kenaitze coronary artery of kenaitze heart without angina pectoris Take 1 Tablet by mouth in the morning. In the morning.. 90 Tablet 1 04/05/2023 Active Metoprolol Succinate ER 50 MG Oral Tablet Extended Release 24 Hour (toPROL XL)Indications:Harman ry artery disease involving kenaitze coronary artery of kenaitze heart without angina pectoris TAKE 1 & [...] as of this encounter (statuses as of 08/10/2023) Active Problems Problem Noted Date Diagnosed Date [...] 01/24/2021 Opioid dependence, uncomplicated 01/22/2021 History of OH (myocardial infarction) 01/22/2021 Morbid obesity with BMI of 50.0-59.9, adult 09/20 History of subdural hematoma 10/04/2020 Gastroesophageal reflux disease without esophagi tis 10/04/2020 History of subarachnoid hemorrhage 10/04/2020 Coronary artery disease invo lving kenaitze heart without angina pectoris 10/04/2020 COPD, group [...] as of this encounter (statuses as of 08/10/2023) Resolved Problems Problem Noted Date Diagnosed Date [...] Calculus of kidney 08/20/2015 8 Overview: right, [place] CT Vitamin D deficiency 01/31/2015 018 Body [...] as of this encounter (statuses as of 08/10/2023) Immunizations Name Administration Dates Next Due COVID-19 mRNA, LNP-s, No Pre serve, 2-Dose Series ([employer]) 01/02/2021,12/05/2020 DTP Vaccine 07/19/2017,04/03/2014 Hepatitis B, 20+ [...] as of this encounter Progress Notes * Michael Estevez, dip filler - 08/10/2023 11:36 AM EST Contacts Type Contact Phone/Fax 08/10/2023 11:32 AM EST Phone (Outgoing) Stanton Milner (Self) [phone] (H) Subjective Patient Findings Negatives: Signs/symptoms of thrombosis, [...] communicated as noted by Pharmacist: Yes ARTEM Walls Tech 08/10/2023, 11:36 AM * Keren Sanchez RPh - 08/10/2023 9:31 AM EST Images from the original note were not included. Coumadin Clinic (region specific) Objective Current Warfarin Dose As of 08/10/2023 Warfarin maintenance plan: 5 mg (5 mg x 1) every Wed, Fri; 2.5 mg (5 mg x 0.5) all other days INR Result As of 08/10/2023 INR goal: 2.0-3.0 INR used for dosin.1 (08/09/2023) Assessment & Plan Warfarin Plan As of 08/10/2023 Full warfarin instructions: 08/10: Hold; Otherwise 5 mg every Wed, Fri; 2.5 mg all other days Next INR check: 08/17/2023 Repeat PT/INR in 1 week(s) Weekly dose: not changed Additional Dosing Information: Description [facility]) - pt prefers [facility] at this time Tech to contact patient with dose instructions as noted. Keren Sanchez RPh 08/10/2023, 9:31 AM documented in this encounter Plan of Treatment Upcoming Encounters Date Type Department Care Team (Late st Contact Info) Description 08/17/2023 9:40 AM EST Laboratory Lab Mobile Phlebotomy [facility] [address] [place] [address] [facility] Mobile Home Draw [address] [place] [address] Health Maintenance Due Date Last Done Comments DISCUSS TOBACCO CESSATION (REFER TO SMARTSET #9138) 1970 HIV Screening 1985 Pneumococcal Vaccine: Pediatrics (0 to 5 Years) and At-Risk Patients (6 to 64 Years) (2 - PCV) 05/22/2010 05/22/2009 Cologuard 2015 Fecal Occult Blood Test 2015 Sigmoidoscopy 2015 *ADVANCE DIRECTIVE NOT ON FILE 02/03/2020 LUNG CANCER SCREENING - USE SMARTSET 48116 2020 02/10/2019, 07/19/2017, 05/09/2017, Additional history exists [...] this encounter Medical Devices Implanted Type Area Optical Advisor Device Identifier Shelf Expiration Date Model / Serial / Lot Tube Flex 3.0x2.5 [id number] - [id number] Implanted:Qty: 1 on 12/07/2014 by Juancarlos Trinidad MD at OR [facility] Left: Finger [employer]ANDON : ORTHOPAEDICS 11/18/2015 [id number] / / [id number] documented as of this encounter Visit Diagnoses [...] the patient have Health Care Power of Rubber Covering Machine Operator? No Healthcare Agents on File Name Relationship Healthcare Agent Relationship Communication Estrella Seth Other - (no specific identity) Health Care Power of Rubber Covering Machine Operator Care Teams Glass Forming Crew Member Relationship Specialty Start Date End Date Roberto Askew MD [address] [place] [address] PCP - General Internal Medicine 04/10/20 documented as of this encounter
--- OUTSIDE RECORDS SUMMARY | 2023-08-22 22:05 | External Medical Summary | Summary of Care ---
Author Name Unknown Organization [facility] Address [address] [place] [address] Phone [phone] Care Team Providers Care Manager Creative Services Name Role Phone Roberto Griffin MD Primary Care Provider + Reason for Visit * Reason Onset Date Comments Medication Refill 07/27/2023 Encounter Details Date Type Department Care Team (Late st Contact Info) Description 07/27/2023 Refill General Internal Medicine [facility] [address] [facility] [place] [address] Madina Pollock MD [address] [place] [address] Allergies Active Allergy Reactions Criticality Noted Date [...] as of this encounter (statuses as of 07/28/2023) Medications Medication Sig Dispensed Refills Start Date End Date Status polyethylene glycol 3350 (MIRALAX) 255 gram powderIndications:Ob stipation DISSOLVE AND DRINK 1 CAPFUL (17GM) IN LIQUID ONCE DAILY. 527 g 5 9 Active Additional Information Patient taking differently: 17 g Oral DAILY PRN, Constipation, (No instructions reported), Reported on 01/22/2021 Aspirin 81 MG Tablet Take 81 mg by mouth daily. 0 Active Urea 20 % CREAIndications:Dry skin dermatitis Apply to affected areas twice daily to dry area Soles, legs 113 g 1 0 Active Lactobacillus (LACTINEX) chewable tablet Take by mouth 1 Tablet 3 times a day . 0 2 Active hydrOXYzine HCl 25 MG tablet Take 25 mg by mouth 4 times a day as needed. 0 Active nystatin (NYSTOP) 190889 UNIT/GM powderIndications:Cu taneous candidiasis Apply topically to affected area 3 times a day. 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 25 Tab 5 0 Active Ferrous Sulfate 325 (65 Fe) MG Oral Tablet (FEOSOL)Indications: Iron deficiency anemia due to chronic blood loss Take 1 Tab by mouth daily with breakfast. 90 Tab 1 0 Active Buprenorphine HCl 8 MG Sublingual Tablet Sublingual (SUBUTEX) Place 8 mg under the tongue. Three times daily 0 Active oxygen IN GAS Use 4 L/min(Oxygen) as directed at bedtime as needed for Shortness of Breath. 1 Each 1 0 Active QC Stool Softener 100 MG Oral Capsule (docusate sodium)Indications:C onstipation, unspecified constipation type TAKE ONE CAPSULE BY MOUTH 2 TIMES A DAY 60 Cap 5 0 Active Additional Information Patient taking differently: 100 mg Oral BID PRN, Constipation, Reported on 08/10/2022 Fluticasone Propionate 93 MCG/ACT Nasal Exhaler SuspensionIndication s:Allergic rhinitis due to pollen, unspecified seasonality Administer into nostril 2 Sprays daily . 16 mL 1 2 Active Albuterol Sulfate HFA 108 (90 Base) MCG/ACT Inhalation Aerosol SolutionIndications: COPD, group C, by GOLD 2017 classification ([facility]),COPD, group D, by GOLD 2017 classification ([facility]) USE 2 PUFFS BY MOUTH EVERY 4 HOURS NEEDED SHORT OF BREATH 6.7 g 5 2 Active Magnesium Oxide 400 (241.3 Mg) MG Oral TabletIndications:Co ronary artery disease involving susanville coronary artery of susanville heart without angina pectoris Take by mouth 400 mg in the morning. 30 Tablet 11 2 Active Insulin Glargine 100 UNIT/ML Subcutaneous Solution Pen-injector (Lantus) Inject under the skin 50 Units before bedtime. 10 Each 5 2 Active NovoLOG FlexPen 100 UNIT/ML Subcutaneous Solution Pen-injector (insulin aspart) Inject under the skin 1 Units three times a day with meals . Units as per sliding scale as instructed by provider to cover for steroid coverage when warranted 1 Each 0 2 Active Mucinex DM 30-600 MG Oral Tablet Extended Release 12 Hour Take by mouth 1 Tablet 2 times a day as needed for Cough. Take with plenty of water. Do not cut, crush or chew 40 Tablet 2 2 Active Ondansetron HCl 4 MG Oral Tablet (Zofran)Indications: Nausea TAKE 1 TABLET BY MOUTH EVERY 8 HOURS NEEDED NAUSEA 20 Tablet 1 2 Active Ipratropium-Albutero l 0.5-2.5 (3) MG/3ML Inhalation Solution (Duoneb)Indications: COPD, severity to be determined (HCC),Wheezing Inhale 3 mL via nebulizer in the morning and 3 mL at noon and 3 mL before bedtime. 360 mL 0 2 Active Fluticasone-Salmeter ol 250-50 MCG/ACT Inhalation Aerosol Powder Breath Activated (Advair Diskus)Indications:C OPD, severity to be determined (HCC),Wheezing,Obesi ty hypoventilation syndrome (HCC) Inhale 1 Puff by mouth in the morning and 1 Puff before bedtime. 1 Each 2 2 Active Senna 8.6 MG Oral CapsuleIndications:C onstipation, unspecified constipation type Take 8.6 mg by mouth daily as needed for Constipation. 30 Capsule 0 3 Active LORazepam 0.5 MG Oral Tablet (Ativan)Indications: Depression with anxiety Take 1 Tablet by mouth every 8 hours as needed for Anxiety. 21 Tablet 0 3 Active Accu-Chek Guide Me w/Device KitIndications:Type 2 diabetes mellitus with hemoglobin A1c goal of less than 8.0% ([facility]) Use as directed. 1 Kit 0 3 Active Accu-Chek Guide In Vitro Strip (Glucose Blood)Indications:Ty pe 2 diabetes mellitus with hemoglobin A1c goal of less than 8.0% (HCC) Use to check sugars 3 times a day 100 Strip 1 3 Active Accu-Chek Softclix LancetsIndications:T ype 2 diabetes mellitus with hemoglobin A1c goal of less than 8.0% (HCC) Use to check sugars 3 times a day 100 Each 3 3 Active Ondansetron HCl 4 MG Oral Tablet (Zofran)Indications: Nausea TAKE 1 TABLET BY MOUTH EVERY 8 HOURS NEEDED NAUSEA 20 Tablet 1 3 Active Spironolactone 25 MG Oral Tablet (Aldactone) Take 1 Tablet by mouth in the morning. In the morning.. 90 Tablet 2 3 Active Ondansetron HCl 4 MG Oral Tablet (Zofran) TAKE 1 TABLET EVERY 8 HOURS NEEDED FOR NAUSEA 20 Tablet 1 3 Active guaiFENesin-Codeine 100-10 MG/5ML Oral Syrup (Robitussin AC) Take 5 mL by mouth 3 times a day as needed for Cough. 120 mL 0 3 Active Benzonatate 100 MG Oral Capsule (Tessalon Perles) TAKEONE CAPSULE BY MOUTH EVERY MORNING, ONE AT NOON, AND ONE EVERY EVENING, FOR COUGH. 20 Capsule 0 3 Active Isosorbide Dinitrate 30 MG Oral TabletIndications:Co ronary artery disease involving susanville coronary artery of susanville heart without angina pectoris Take 1 Tablet by mouth in the morning. In the morning.. 90 Tablet 1 3 Active Metoprolol Succinate ER 50 MG Oral Tablet Extended Release 24 Hour (toPROL XL)Indications:Coron uziel artery disease involving susanville coronary artery of susanville heart without angina pectoris TAKE 1 & 1/2 TABLETS by mouth 2 TIMES A DAY 270 Tablet 1 3 Active Folic Acid 1 MG Oral Tablet Take 1 Tablet by mouth in the morning. 90 Tablet 2 3 Active Omeprazole 20 MG Oral Capsule Delayed Release (PriLOSEC) TAKE ONE CAPSULE BY MOUTH 1 HOUR BEFORE THE 1ST MEAL OF THE DAY 90 Capsule 1 3 Active Famotidine 20 MG Oral Tablet (Pepcid)Indications: Gastroesophageal reflux disease without esophagitis Take 1 Tablet by mouth in the morning. 90 Tablet 1 3 Active Finasteride 5 MG Oral Tablet (Proscar)Indications :BPH with obstruction/lower urinary tract symptoms TAKE ONE TABLET BY MOUTH EVERY DAY IN THE MORNING 90 Tablet 1 3 Active Warfarin Sodium 5 MG Oral Tablet (Coumadin)Indication s:History of pulmonary embolism TAKE 1/2 TO 1 TABLET EVERY DAY DIRECTED BY COUMADIN CLINIC. 90 Tablet 3 3 Active metOLazone 2.5 MG Oral Tablet (Zaroxolyn) TAKE 1 TABLET ONE TIME DAILY ON WEDNESDAY, WEDNESDAY, AND WEDNESDAY ONLY. 39 Tablet 1 3 Active Atorvastatin Calcium 80 MG Oral Tablet (Lipitor) Take 1 Tablet by mouth in the morning. 90 Tablet 3 3 Active Potassium Chloride Terra ER 20 MEQ Oral Tablet Extended ReleaseIndications:H ypokalemia TAKE ONE TABLET EVERY MORNING AND AT BEDTIME 180 Tablet 2 3 Active Torsemide 100 MG Oral Tablet (Demadex) Take 0.5 Tablets by mouth in the morning. 5 Tablet 0 3 Active Amoxicillin-Pot Clavulanate 875-125 MG Oral Tablet (Augmentin) Take 1 Tablet by mouth in the morning and 1 Tablet before bedtime. For 7 days. 0 3 Active Lactobacillus Probiotic Oral Tablet Take 3 Billion Cells by mouth in the morning. For 10 days. 0 3 Active predniSONE 20 MG Oral Tablet (Deltasone) Take 1 Tablet by mouth in the morning. For 4 days. 0 3 Active Cyclobenzaprine HCl 10 MG Oral Tablet (Flexeril)Indication s:Chronic pain syndrome TAKE 1 TABLET TWICE DAILY NEEDED FOR MUSCLE SPASM(S) 60 Tablet 5 3 Active DULoxetine HCl 60 MG Oral Capsule Delayed Release Particles (Cymbalta)Indication s:DM type 2 with diabetic peripheral neuropathy (HCC),Chronic bilateral low back pain without sciatica TAKE 1 CAPSULE BY MOUTH IN THE MORNING. 90 Capsule 1 3 Active Gabapentin 800 MG Oral Tablet (Neurontin)Indicatio ns:DM type 2 with diabetic peripheral neuropathy (HCC) TAKE 1 TABLET BY MOUTH IN THE MORNING, 1 TABLET AT NOON AND 1 TABLET BEFORE BEDTIME. 270 Tablet 10 3 Active glipiZIDE 10 MG Oral Tablet (Glucotrol)Indicatio ns:Diabetes mellitus with nephropathy (HCC) TAKE ONE TABLET BY MOUTH 2 TIMES A DAY 30 MINUTES BEFORE MEALS 180 Tablet 1 3 Active Tamsulosin HCl 0.4 MG Oral Capsule (Flomax) Take 2 Capsules by mouth in the morning. 60 Capsule 0 3 Active Tamsulosin HCl 0.4 MG Oral Capsule (Flomax) TAKE 2 CAPSULES BY MOUTH IN THE MORNING 180 Capsule 1 3 07/27/20 23 Discontinu ed(Refill) documented as of this encounter (statuses as of 07/28/2023) Active Problems Problem Noted Date Diagnosed Date [...] hemorrhage 10/04/2020 Coronary artery disease invo lving susanville heart without angina pectoris 10/04/2020 COPD, group [...] as of this encounter (statuses as of 07/28/2023) Resolved Problems Problem Noted Date Diagnosed Date [...] Calculus of kidney 08/20/2015 8 Overview: right, [place] CT Vitamin D deficiency 01/31/2015 018 Body [...] as of this encounter (statuses as of 07/28/2023) Immunizations Name Administration Dates Next Due COVID-19 mRNA, LNP-s, No Pre serve, 2-Dose Series ([employer]) 01/02/2021,12/05/2020 DTP Vaccine 07/19/2017,04/03/2014 Hepatitis B, 20+ [...] encounter Miscellaneous Notes * Telephone Encounter - Roberto Griffin MD - 07/28/2023 8:43 AM ESTSigned Prescriptions: Disp Refills Tamsulosin HCl 0.4 MG Oral Capsule (Flomax)60 Cap*0 Sig: Take 2 Capsules by mouth in the morning.Authorizing Provider: ROBERTO GRIFFIN * Telephone Encounter - Yanique Marrufo LPN - 07/28/2023 8:19 AM ESTPending Prescriptions: Disp Refills Tamsulosin HCl 0.4 MG Oral Capsule (Flomax)180 Ca*3 Sig: Take 2 Capsules by mouth in the morning. * Telephone Encounter - Tyree Ceballos OSA - 07/27/2023 12:50 PM EST 90 Day Prescription Request Did you pend patient's preferred pharmacy and medication before forwarding?yes Pharmacy: [id number] [address] [place] [address] Pending Prescriptions: Disp Refills Tamsulosin HCl 0.4 MG Oral Capsule (Floma*180 Ca*1 Sig: Take 2 Capsules by mouth in the morning. Last Visit: 08/10/2022 (in office), 12/10/2021 (telemedicine) Next Visit: 08/02/2023 If no future appointments scheduled, and last appointment is greater than a year ago, please schedule patient for a follow-up appointment Last date the medication was ordered: 07/26/2023 Is this request for a controlled substance?No Urine Drug Screen:No results found. However, due to the size of the patient record, not all encounters were searched. Please check Results Review for a complete set of results. Patient Phone Numbers Labs: Lab Results Component Value Date/Time CREAT 0.9 06/14/2023 07:59 AM CREAT 1.05 08/05/2022 12:00 AM CREAT 1.1 10/15/2020 08:46 AM POTASSIUM 3.8 06/14/2023 07:59 AM POTASSIUM 3.7 08/05/2022 12:00 AM POTASSIUM 3.7 10/15/2020 08:46 AM TSH 1.51 12/10/2020 09:50 AM TSH 1.45 10/08/2020 08:05 AM LDLCALC 71 12/08/2022 08:38 AM LDLCALC 95 10/08/2020 08:05 AM LDLDIRECT 105 12/10/2020 09:50 AM LDLDIRECT NOT APPLICABLE 10/08/2020 08:05 AM LDLDIRECT 84 10/04/2017 01:15 PM ALT 26 06/14/2023 07:59 AM ALT 23 10/08/2020 08:05 AM HGBA1C 6.9 (H) 03/19/2022 06:48 AM HGBA1C 8.8 (H) 10/08/2020 08:05 AM documented in this encounter Plan of Treatment Upcoming Encounters Date Type Department Care Team (Late st Contact Info) Description 08/02/2023 11:30 AM EST Laboratory Lab Mobile Phlebotomy [facility] [address] [place] [address] [facility], [facility] Mobile Home Draw [address] [place] [address] 08/02/2023 12:00 PM EST Office Visit General Internal Medicine [facility] [address] [place] [address] Roberto Griffin MD [address] [place] [address] 08/03/2023 6:00 AM EST Anticoagulation Pharmacy Call Center [place] [phone] [facility] [place] [address] [facility] [address] [facility] [place] [address] Health Maintenance Due Date Last Done Comments DISCUSS TOBACCO CESSATION (REFER TO SMARTSET #7539) 1970 HIV Screening 1985 Pneumococcal Vaccine: Pediatrics (0 to 5 Years) and At-Risk Patients (6 to 64 Years) (2 - PCV) 05/22/2010 05/22/2009 Cologuard 2015 Fecal Occult Blood Test 2015 Sigmoidoscopy 2015 *ADVANCE DIRECTIVE NOT ON FILE 02/03/2020 LUNG CANCER SCREENING - USE SMARTSET [id number] 2020 02/10/2019, 07/19/2017, 05/09/2017, Additional history exists [...] this encounter Medical Devices Implanted Type Area Avionics Safety Inspector Device Identifier Shelf Expiration Date Model / Serial / Lot Tube Flex 3.0x2.5 [id number] - [id number] Implanted:Qty: 1 on 12/07/2014 by Juancarlos Trinidad MD at [facility] Left: Finger [employer] : ORTHOPAEDICS 11/18/2015 [id number] / / [id number] documented as of this encounter Advance Directives [...] the patient have Health Care Power of Casting Molder? No Healthcare Agents on File Name Relationship Healthcare Agent Relationship Communication Estrella Seth Other - (no specific identity) Health Care Power of Casting Molder Care Teams Manager Creative Services Relationship Specialty Start Date End Date Roberto Griffin MD [address] [place] [address] PCP - General Internal Medicine 04/10/20 documented as of this encounter
--- OUTSIDE RECORDS SUMMARY | 2023-08-22 22:05 | External Medical Summary ---
Author Name Unknown Address Unknown Organization [facility] [address] [place] [id number] Laboratory Report Ordering Provider Test Date Status TULIO TRONCOSO 08/09/2023 08:33:00 Final Standing order for pt/inr. < br/>Please draw pt/inr every 1 to 4 weeks as requested
Results to [facility]

Warfarin Therapy
INR: 2.0-3.0 conventional anticoagulation
INR: 2.5-3.5 high intensity anticoagulation Observation Date Value Abnormality Reference (Units ) Status PT 08/09/2023 08:33:00 32.5 Above high normal 11 .6-15.2 (seconds) Final INR 08/09/2023 08:33:00 3.1 Above high normal 0. 8-1.2 Final Performing Location [facility] [address] [place] [id number]
--- OUTSIDE RECORDS SUMMARY | 2023-08-22 22:06 | External Medical Summary | Summary of Care ---
Author Name Unknown Organization [facility] Address [address] [place] [address] Phone [phone] Care Team Providers Care Fuel System Maintenance Supervisor Name Role Phone Roberto Askew MD Primary Care Provider + Reason for Visit * Reason Comments Dosage Adjustment Via Phone (anticoag Cl inic) Encounter Details Date Type Department Care Team (Latest Contact Info) Description 07/26/2023 6:45 AM EST Anticoagulation Pharmacy Call Center [address] [place] [address] [facility] [address] [place] [address] History of pulmonary embolism* Allergies Active Allergy [...] as of this encounter (statuses as of 07/26/2023) Medications Medication Sig Dispensed Refills Start Date [...] day as needed. 0 Active nystatin (NYSTOP) 933771 UNIT/GM powderIndications:Cut aneous candidiasis Apply topically to [...] MG Oral TabletIndications:Cor onary artery disease involving picayune coronary artery of picayune heart without angina pectoris Take by mouth [...] MG Oral TabletIndications:Cor onary artery disease involving picayune coronary artery of picayune heart without angina pectoris Take 1 Tablet by mouth in the morning. In the morning.. 90 Tablet 1 04/05/2023 Active Metoprolol Succinate ER 50 MG Oral Tablet Extended Release 24 Hour (toPROL XL)Indications:Harman ry artery disease involving picayune coronary artery of picayune heart without angina pectoris TAKE 1 & [...] BEFORE BEDTIME. 270 Tablet 10 07/07/2023 Active Tamsulosin HCl 0.4 MG Oral Capsule (Flomax) Take 2 Capsules by mouth in the morning. 30 Capsule 1 07/22/2023 Active glipiZIDE 10 MG Oral Tablet (Glucotrol)Indication s:Diabetes mellitus with nephropathy (HCC) TAKE ONE TABLET BY MOUTH 2 TIMES A DAY 30 MINUTES BEFORE MEALS 180 Tablet 1 07/22/2023 Active documented as of this encounter (statuses as of 07/26/2023) Active Problems Problem Noted Date Diagnosed Date [...] 01/24/2021 Opioid dependence, uncomplicated 01/22/2021 History of [place] (myocardial infarction) 01/22/2021 Morbid obesity with BMI of 50.0-59.9, adult 09/20 History of subdural hematoma 10/04/2020 Gastroesophageal reflux disease without esophagi tis 10/04/2020 History of subarachnoid hemorrhage 10/04/2020 Coronary artery disease invo lving picayune heart without angina pectoris 10/04/2020 COPD, group [...] as of this encounter (statuses as of 07/26/2023) Resolved Problems Problem Noted Date Diagnosed Date [...] Calculus of kidney 08/20/2015 8 Overview: right, [place] CT Vitamin D deficiency 01/31/2015 018 Body [...] as of this encounter (statuses as of 07/26/2023) Immunizations Name Administration Dates Next Due COVID-19 mRNA, LNP-s, No Pre serve, 2-Dose Series (onlinetours) 01/02/2021,12/05/2020 DTP Vaccine 07/19/2017,04/03/2014 Hepatitis B, 20+ [...] as of this encounter Progress Notes * Keren Sanchez RPh - 07/26/2023 9:12 AM EST Pt remains admitted to [facility]. CM notes planning home at discharge with [facility]. [facility] will continue to follow up for d/c plans. Keren Sanchez Rph, Pharm.D. Clinical Pharmacist Centralized Clinical Pharmacy Services (CCPS) (formerly Telepharmacy) [phone] 07/26/2023,9:17 AM documented in this encounter Plan of Treatment Health Maintenance Due Date Last Done Comments DISCUSS TOBACCO CESSATION (REFER TO SMARTSET #0594) 1970 HIV Screening 1985 Pneumococcal Vaccine: Pediatrics (0 to 5 Years) and At-Risk Patients (6 to 64 Years) (2 - PCV) 05/22/2010 05/22/2009 Cologuard 2015 Fecal Occult Blood Test 2015 Sigmoidoscopy 2015 *ADVANCE DIRECTIVE NOT ON FILE 02/03/2020 LUNG CANCER SCREENING - USE SMARTSET [id number] 2020 02/10/2019, 07/19/2017, 05/09/2017, Additional history exists [...] this encounter Medical Devices Implanted Type Area Donor Technician Device Identifier Shelf Expiration Date Model / Serial / Lot Tube Flex 3.0x2.5 [id number] - [id number] Implanted:Qty: 1 on 12/07/2014 by Juancarlos Trinidad MD at [facility] Left: Finger LANDON : ORTHOPAEDICS 11/18/2015 [id number] / / [id number] documented as of this encounter Visit Diagnoses [...] the patient have Health Care Power of Chairman & Co Founder? No Healthcare Agents on File Name Relationship Healthcare Agent Relationship Communication Estrella Seth Other - (no specific identity) Health Care Power of Chairman & Co Founder Care Teams Fuel System Maintenance Supervisor Relationship Specialty Start Date End Date Roberto Askew MD [address] [place] [id number] PCP - General Internal Medicine 04/10/20 documented as of this encounter
--- OUTSIDE RECORDS SUMMARY | 2023-08-22 22:06 | External Medical Summary | Summary of Care ---
Author Name Unknown Organization [facility] Address [address] [place] [address] Phone [phone] Care Team Providers Care Epic Ambulatory Analysts Name Role Phone Roberto Askew MD Primary Care Provider + Reason for Visit * Reason Onset Date Comments Hospital Follow-Up 07/26/2023 Encounter Details Date Type Department Care Team ([facility] st Contact Info) Description 07/26/2023 Telephone General Internal Medicine [facility] [address] [place] [address] Roberto Askew MD [address] [place] [address] Hospital Follow-Up Allergies Active Allergy Reactions Criticality [...] day as needed. 0 Active nystatin (NYSTOP) 421256 UNIT/GM powderIndications:Cu taneous candidiasis Apply topically to [...] COPD, group C, by GOLD 2017 classification ([facility]),COPD, group D, by GOLD 2017 classification ([facility]) USE 2 PUFFS BY MOUTH EVERY 4 HOURS NEEDED SHORT OF BREATH 6.7 g 5 11/24/2021 Active Magnesium Oxide 400 (241.3 Mg) MG Oral TabletIndications:Co ronary artery disease involving [place] coronary artery of [place] heart without angina pectoris Take by mouth [...] hemoglobin A1c goal of less than 8.0% ([facility]) Use as directed. 1 Kit [...] MG Oral TabletIndications:Co ronary artery disease involving [place] coronary artery of [place] heart without angina pectoris Take 1 Tablet by mouth in the morning. In the morning.. 90 Tablet 1 04/05/2023 Active Metoprolol Succinate ER 50 MG Oral Tablet Extended Release 24 Hour (toPROL XL)Indications:Coron uziel artery disease involving [place] coronary artery of sk[place] heart without angina pectoris TAKE 1 & [...] 01/24/2021 Opioid dependence, uncomplicated 01/22/2021 History of [place] (myocardial infarction) 01/22/2021 Morbid obesity with BMI of 50.0-59.9, adult 09/20 History of subdural hematoma 10/04/2020 Gastroesophageal reflux disease without esophagi tis 10/04/2020 History of subarachnoid hemorrhage 10/04/2020 Coronary artery disease invo lving sk[place] heart without angina pectoris 10/04/2020 COPD, group [...] Calculus of kidney 08/20/2015 8 Overview: right, [place] CT Vitamin D deficiency 01/31/2015 018 Body [...] mRNA, LNP-s, No Pre serve, 2-Dose Series ([employer]) 01/02/2021,12/05/2020 DTP Vaccine 07/19/2017,04/03/2014 Hepatitis B, 20+ [...] encounter Miscellaneous Notes * Telephone Encounter - Keren Sanchez RPh - 07/26/2023 4:06 PM EST Noted- [facility] will follow up with patient Keren Sanchez Rph, Pharm.D. Clinical Pharmacist Centralized Clinical Pharmacy Services (CCPS) (formerly Telepharmacy) [phone] 07/26/2023,4:06 PM * Telephone Encounter - Drake Hanson RN - 07/26/2023 3:33 PM EST Patient discharged to home today from [facility]. INR today is 3.1. Patient instructed to NOT take coumadin today, can resume tomorrow/discuss with MTM for further guidance. Patient does NOT have home health services. Thank you documented in this encounter Plan of Treatment Upcoming Encounters Date Type Department Care Team (Late st Contact Info) Description 07/27/2023 6:45 AM EST Anticoagulation Pharmacy Call Center WB [phone] [facility] [place] [address] [facility], [facility] [address] [facility] [place] [address] 08/02/2023 12:00 PM EST Office Visit General Internal Medicine [facility] [address] [facility] [place] [address] Roberto Askew MD [address] [facility] [place] [address] Health Maintenance Due Date Last Done Comments DISCUSS TOBACCO CESSATION (REFER TO SMARTSET #3291) 1970 HIV Screening 1985 Pneumococcal Vaccine: Pediatrics (0 to 5 Years) and At-Risk Patients (6 to 64 Years) (2 - PCV) 05/22/2010 05/22/2009 Cologuard 2015 Fecal Occult Blood Test 2015 Sigmoidoscopy 2015 *ADVANCE DIRECTIVE NOT ON FILE 02/03/2020 LUNG CANCER SCREENING - USE SMARTSET [id number] 2020 02/10/2019, 07/19/2017, 05/09/2017, Additional history exists Zoster Vaccines (1 of 2) 2020 Hepatitis B (3 of 3 - 19+ 3-dose series) 10/11/2020 06/05/2020, 04/10/2020 Diabetic Foot Exam 12/13/2020 12/14/2019, 1 11/03/2014, 09/03/2014 Albumin/Creatinine Ratio 04/10/2021 04/10/2020 Depression Screening 05/01/2021 05/01/2020, 02/02/20 18 Diabetic Eye Exam 11/19/2021 11/19/2020, 04/10/2020 HbA1c 09/18/2022 03/19/2022, 11/19, 06/05/2021, Additional history exists COVID-19 Vaccine ( season) 2023 01/02/2021, 12/05/2020 Influenza Vaccine (FLU [...] this encounter Medical Devices Implanted Type Area Byproducts Supervisor Device Identifier Shelf Expiration Date Model / Serial / Lot Tube Flex 3.0x2.5 [id number] - [id number] Implanted:Qty: 1 on 12/07/2014 by Juancarlos Trinidad MD at [facility] Left: Finger [employer]ANDON : ORTHOPAEDICS 11/18/2015 [id number] / / [id number] documented as of this encounter Advance Directives [...] the patient have Health Care Power of Bilingual Teacher Assistant? No Healthcare Agents on File Name Relationship Healthcare Agent Relationship Communication Estrella Seth Other - (no specific identity) Health Care Power of Bilingual Teacher Assistant Care Teams Epic Ambulatory Analysts Relationship Specialty Start Date End Date Roberto Askew MD [address] [place] [address] PCP - General Internal Medicine 04/10/20 documented as of this encounter
--- OUTSIDE RECORDS SUMMARY | 2023-08-22 22:06 | External Medical Summary | Summary of Care ---
Author Name Unknown Organization [facility] Address [address] [place] [address] Phone [phone] Care Team Providers Care Director Of Corporate Real Estate Name Role Phone Roberto Griffin MD Primary Care Provider + Reason for Visit * Reason Comments eRx-Medication Refill Encounter Details Date Type Department Care Team (Late st Contact Info) Description 07/22/2023 Refill General Internal Medicine [facility] [address] [facility] [place] [address] Roberto Griffin MD [address] [place] [address] Diabetes mellitus with nephropathy (HCC) Allergies Active Allergy Reactions Criticality Noted Date [...] as of this encounter (statuses as of 07/22/2023) Medications Medication Sig Dispensed Refills Start Date [...] day as needed. 0 Active nystatin (NYSTOP) 607417 UNIT/GM powderIndications:C utaneous candidiasis Apply topically to [...] :COPD, group C, by GOLD 2017 classification ([facility]),COPD, group D, by GOLD 2017 classification ([facility]) USE 2 PUFFS BY MOUTH EVERY 4 HOURS NEEDED SHORT OF BREATH 6.7 g 5 2 Active Magnesium Oxide 400 (241.3 Mg) MG Oral TabletIndications:C oronary artery disease involving [place] coronary artery of [place] heart without angina pectoris Take by mouth [...] NEEDED NAUSEA 20 Tablet 1 2 Active Ipratropium-Albuter ol 0.5-2.5 (3) MG/3ML Inhalation Solution (Duoneb)Indications :COPD, severity to be determined (HCC),Wheezing Inhale 3 mL via nebulizer in the morning and 3 mL at noon and 3 mL before bedtime. 360 mL 0 2 Active Fluticasone-Salmete rol 250-50 MCG/ACT Inhalation Aerosol Powder Breath Activated (Advair Diskus)Indications: COPD, severity to be determined (HCC),Wheezing,Obes ity hypoventilation syndrome (HCC) Inhale 1 Puff by mouth in the morning and 1 Puff before bedtime. 1 Each 2 2 Active Senna 8.6 MG Oral CapsuleIndications: Constipation, unspecified constipation type Take 8.6 mg by mouth daily as needed for Constipation. 30 Capsule 0 3 Active LORazepam 0.5 MG Oral Tablet (Ativan)Indications :Depression with anxiety Take 1 Tablet by mouth every 8 hours as needed for Anxiety. 21 Tablet 0 3 Active Accu-Chek Guide Me w/Device KitIndications:Type 2 diabetes mellitus with hemoglobin A1c goal of less than 8.0% ([facility]) Use as directed. 1 Kit 0 3 Active Accu-Chek Guide In Vitro Strip (Glucose Blood)Indications:T ype 2 diabetes mellitus with hemoglobin A1c goal of less than 8.0% ([facility]) Use to check sugars 3 times a day 100 Strip 1 3 Active Accu-Chek Softclix LancetsIndications: Type 2 diabetes mellitus with hemoglobin A1c goal of less than 8.0% ([facility]) Use to check sugars 3 times a [...] 3 Active Isosorbide Dinitrate 30 MG Oral TabletIndications:C oronary artery disease involving [place] coronary artery of [place] heart without angina pectoris Take 1 Tablet by mouth in the morning. In the morning.. 90 Tablet 1 3 Active Metoprolol Succinate ER 50 MG Oral Tablet Extended Release 24 Hour (toPROL XL)Indications:Freddie nary artery disease involving [place] coronary artery of [place] heart without angina pectoris TAKE 1 & [...] 3 Active Famotidine 20 MG Oral Tablet (Pepcid)Indications :Gastroesophageal reflux disease without esophagitis Take 1 Tablet by mouth in the morning. 90 Tablet 1 3 Active Finasteride 5 MG Oral Tablet (Proscar)Indication [...] 3 Active Gabapentin 800 MG Oral Tablet (Neurontin)Indicati ons:DM type 2 with diabetic peripheral neuropathy (HCC) TAKE 1 TABLET BY MOUTH IN THE MORNING, 1 TABLET AT NOON AND 1 TABLET BEFORE BEDTIME. 270 Tablet 10 3 Active Tamsulosin HCl 0.4 MG Oral Capsule (Flomax) Take 2 Capsules by mouth in the morning. 30 Capsule 1 3 Active glipiZIDE 10 MG Oral Tablet (Glucotrol)Indicati ons:Diabetes mellitus with nephropathy (HCC) TAKE ONE TABLET BY MOUTH 2 TIMES A DAY 30 MINUTES BEFORE MEALS 180 Tablet 1 3 Active glipiZIDE 10 MG Oral Tablet (Glucotrol)Indicati ons:Diabetes mellitus with nephropathy (HCC) TAKE ONE TABLET BY MOUTH 2 TIMES A DAY 30 MINUTES BEFORE A MEAL 180 Tablet 1 3 023 Discontinued documented as of this encounter (statuses as of 07/22/2023) Active Problems Problem Noted Date Diagnosed Date [...] 01/24/2021 Opioid dependence, uncomplicated 01/22/2021 History of [place] (myocardial infarction) 01/22/2021 Morbid obesity with BMI of 50.0-59.9, adult 09/20 History of subdural hematoma 10/04/2020 Gastroesophageal reflux disease without esophagi tis 10/04/2020 History of subarachnoid hemorrhage 10/04/2020 Coronary artery disease invo lving [place] heart without angina pectoris 10/04/2020 COPD, group [...] as of this encounter (statuses as of 07/22/2023) Resolved Problems Problem Noted Date Diagnosed Date [...] Calculus of kidney 08/20/2015 8 Overview: right, [place] CT Vitamin D deficiency 01/31/2015 018 Body [...] as of this encounter (statuses as of 07/22/2023) Immunizations Name Administration Dates Next Due COVID-19 mRNA, LNP-s, No Pre serve, 2-Dose Series ([employer]) 01/02/2021,12/05/2020 DTP Vaccine 07/19/2017,04/03/2014 Hepatitis B, 20+ [...] encounter Miscellaneous Notes * Telephone Encounter - Nikolai Breaux, [facility] - 07/22/2023 4:03 PM EDT Signed Prescriptions: Disp Refills glipiZIDE 10 MG Oral Tablet (Glucotrol) 180 Ta*1 Sig: TAKE ONE TABLET BY MOUTH 2 TIMES A DAY 30 MINUTES BEFORE MEALSAuthorizing Provider: ROBERTO GRIFFIN User: NIKOLAI BREAUXRefused Prescriptions: Disp Refills Atorvastatin Calcium 80 MG Oral Tablet (Li*90 Tab*3 Sig: Take 1 Tablet by mouth in the morning.Refused By: NIKOLAI BREAUX for Refusal: Too soon * Telephone Encounter - FedeTyree rosario, [facility] - 07/22/2023 12:49 PM EDT Pending Prescriptions: Disp Refills glipiZIDE 10 MG Oral Tablet (Glucotrol) [*180 Ta*10 Sig: TAKE ONE TABLET BY MOUTH 2 TIMES A DAY 30 MINUTES BEFORE MEALS Atorvastatin Calcium 80 MG Oral Tablet (L*90 Tab*3 Sig: Take 1 Tablet by mouth in the morning. Last Visit: 08/10/2022 (in office), 12/10/2021 (telemedicine) Atorvastatin via [address] Next Visit: Visit date not found Last date the medication was ordered: 05/05/2023 Patient Active Problem List Diagnosis Code Chronic pain syndrome G89.4 Do not give narcotics [id number] Allergic rhinitis J30.9 Depression with anxiety F41.8 Tobacco use disorder F17.200 History of pulmonary embolism Z86.711 History of drug overdose Z91.89 Venous insufficiency I87.2 Chronic diastolic heart failure ([facility]) I50.32 Unspecified mood (affective) disorder ([facility]) F39 Personality disorder, unspecified ([facility]) F60.9 Type 2 diabetes mellitus with hemoglobin A1c goal of less than 8.0% ([facility]) E11.9 Iron deficiency anemia due to chronic blood loss D50.0 Type 2 diabetes mellitus with diabetic dermatitis ([facility]) E11.620 Supraventricular tachycardia I47.10 DM type 2 with diabetic peripheral neuropathy ([facility]) E11.42 Diabetes mellitus with nephropathy ([facility]) E11.21 COPD, group D, by GOLD 2017 classification ([facility]) J44.9 Morbid obesity with BMI of 50.0-59.9, adult ([facility]) E66.01, Z68.43 History of subdural hematoma Z86.79 Gastroesophageal reflux disease without esophagitis K21.9 History of subarachnoid hemorrhage Z86.79 Coronary artery disease involving [place] heart without angina pectoris I25.10 Opioid dependence, uncomplicated ([facility]) F11.20 History of [place] (myocardial infarction) I25.2 History of leukocytosis Z86.2 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 ([facility]) G47.33, J44.9 Chronic bilateral low back pain without sciatica M54.50, G89.29 Diabetic retinopathy of both eyes associated with type 2 diabetes mellitus ([facility]) E11.319 Type 2 diabetes mellitus with foot ulcer (CODE) ([facility]) E11.621 Low testosterone R79.89 Bandemia D72.825 Labs: Lab Results Component Value Date/Time CREATININE - [facility] 0.9 06/14/2023 07:59 AM CREATININE - [facility] 1.1 10/15/2020 08:46 AM CREATININE, RANDOM URINE - [facility] 114 04/10/2020 01:31 PM CREATININE-OUTSIDE LAB 1.05 08/05/2022 12:00 AM Lab Results Component Value Date/Time POTASSIUM - [facility] 3.8 06/14/2023 07:59 AM POTASSIUM - [facility] 3.7 10/15/2020 08:46 AM POTASSIUM POCT - [facility] 5.2 (H) 11/18/2019 09:38 AM POTASSIUM-OUTSIDE LAB 3.7 08/05/2022 12:00 AM Lab Results Component Value Date/Time TSH - [facility] 1.51 12/10/2020 09:50 AM TSH - [facility] 1.45 10/08/2020 08:05 AM TSH - OUTSIDE LAB 1.220 12/09/2018 12:00 AM Lab Results Component Value Date/Time LDL (CALCULATED)-[facility] 106 03/17/2016 12:00 AM LDL CHOLESTEROL (CALCULATED) - [facility] 71 12/08/2022 08:38 AM LDL CHOLESTEROL (CALCULATED) - [facility] 67 12/16/2021 08:17 AM LDL CHOLESTEROL (CALCULATED) - [facility] 95 10/08/2020 08:05 AM LDL CHOLESTEROL (DIRECT MEASURE) - [facility] 105 12/10/2020 09:50 AM LDL CHOLESTEROL (DIRECT MEASURE) - [facility] NOT APPLICABLE 10/08/2020 08:05 AM LDL CHOLESTEROL (DIRECT MEASURE) - [facility] 84 10/04/2017 01:15 PM Lab Results Component Value Date/Time ALT - [facility] 26 06/14/2023 07:59 AM ALT - [facility] 23 10/08/2020 08:05 AM ALT-OUTSIDE LAB 17 08/16/2017 12:00 AM Hemoglobin AIC Results: Lab Results Component Value Date/Time HEMOGLOBIN A1C - [facility] 6.9 (H) 03/19/2022 06:48 AM HEMOGLOBIN A1C - [facility] 7.6 (H) 12/16/2021 08:17 AM HEMOGLOBIN A1C - [facility] 6.8 (H) 06/05/2021 08:29 AM HEMOGLOBIN A1C - [facility] 8.8 (H) 10/08/2020 08:05 AM HEMOGLOBIN A1C - [facility] 7.1 (H) 04/10/2020 01:17 PM HEMOGLOBIN A1C - [facility] 7.9 (H) 11/19/2019 05:38 AM documented in this encounter Plan of Treatment Upcoming Encounters Date Type Department Care Team (Late st Contact Info) Description 07/23/2023 6:00 AM EDT Anticoagulation Pharmacy Call Center WB [address] [facility] [place] [address] [facility] [address] [facility] [place] [address] Health Maintenance Due Date Last Done Comments DISCUSS TOBACCO CESSATION (REFER TO SMARTSET #3291) 1970 HIV Screening 1985 Pneumococcal Vaccine: Pediatrics (0 to 5 Years) and At-Risk Patients (6 to 64 Years) (2 - PCV) 05/22/2010 05/22/2009 Cologuard 2015 Fecal Occult Blood Test 2015 Sigmoidoscopy 2015 *ADVANCE DIRECTIVE NOT ON FILE 02/03/2020 LUNG CANCER SCREENING - USE SMARTSET [id number] 2020 02/10/2019, 07/19/2017, 05/09/2017, Additional history exists [...] this encounter Medical Devices Implanted Type Area Rn Hospital Device Identifier Shelf Expiration Date Model / Serial / Lot Tube Flex 3.0x2.5 [id number] - [id number] Implanted:Qty: 1 on 12/07/2014 by Juancarlos Trinidad MD at [facility] Left: Finger [employer] : ORTHOPAEDICS 11/18/2015 [id number] / / [id number] documented as of this encounter Visit Diagnoses Diagnosis Diabetes mellitus with nephropathy (HCC) Type II or unspecified type diabetes mellitus with renal manifestations, not stated as uncontrolled documented in this encounter Advance Directives Latest [...] the patient have Health Care Power of Electrophysiology Nurse Practitioner? No Healthcare Agents on File Name Relationship Healthcare Agent Relationship Communication Estrella Seth Other - (no specific identity) Health Care Power of Electrophysiology Nurse Practitioner Care Teams Director Of Corporate Real Estate Relationship Specialty Start Date End Date Roberto Griffin MD [address] [facility] [place] [address] PCP - General Internal Medicine 04/10/20 documented as of this encounter
--- OUTSIDE RECORDS SUMMARY | 2023-08-22 22:06 | External Medical Summary | Summary of Care ---
Author Name Unknown Organization [facility] Address [address] [place] [address] Phone [phone] Care Team Providers Care Physical Integration Practitioner Name Role Phone Roberto Askew MD Primary Care Provider + Reason for Visit * Reason Comments Dosage Adjustment Via Phone (anticoag Cl inic) Encounter Details Date Type Department Care Team (Latest Contact Info) Description 07/27/2023 6:45 AM EST Anticoagulation Pharmacy Call Center [address] [place] [address] [facility] [address] [place] [address] History of pulmonary embolism* Allergies Active Allergy [...] day as needed. 0 Active nystatin (NYSTOP) 897569 UNIT/GM powderIndications:Cu taneous candidiasis Apply topically to [...] COPD, group C, by GOLD 2017 classification ([facility]),COPD, group D, by GOLD 2017 classification ([facility]) USE 2 PUFFS BY MOUTH EVERY 4 HOURS NEEDED SHORT OF BREATH 6.7 g 5 11/24/2021 Active Magnesium Oxide 400 (241.3 Mg) MG Oral TabletIndications:Co ronary artery disease involving [place] coronary artery of [place] heart without angina pectoris Take by mouth [...] hemoglobin A1c goal of less than 8.0% ([facility]) Use as directed. 1 Kit 0 10/30/2022 [...] MG Oral TabletIndications:Co ronary artery disease involving [place] coronary artery of [place] heart without angina pectoris Take 1 Tablet by mouth in the morning. In the morning.. 90 Tablet 1 04/05/2023 Active Metoprolol Succinate ER 50 MG Oral Tablet Extended Release 24 Hour (toPROL XL)Indications:Coron uziel artery disease involving [place] coronary artery of [place] heart without angina pectoris TAKE 1 & [...] 01/24/2021 Opioid dependence, uncomplicated 01/22/2021 History of [place] (myocardial infarction) 01/22/2021 Morbid obesity with BMI of 50.0-59.9, adult 09/20 History of subdural hematoma 10/04/2020 Gastroesophageal reflux disease without esophagi tis 10/04/2020 History of subarachnoid hemorrhage 10/04/2020 Coronary artery disease invo lving [place] heart without angina pectoris 10/04/2020 COPD, group [...] Calculus of kidney 08/20/2015 8 Overview: right, [place] CT Vitamin D deficiency 01/31/2015 018 Body [...] mRNA, LNP-s, No Pre serve, 2-Dose Series ([employer]) 01/02/2021,12/05/2020 DTP Vaccine 07/19/2017,04/03/2014 Hepatitis B, 20+ [...] of this encounter Progress Notes * Keren Sanchez, [facility] - 07/27/2023 3:25 PM EST Medication Therapy Disease Management - Anticoagulation Patient: Stanton Milner | : 1970 Subjective Contacts Type Contact Phone/Fax 07/27/2023 03:55 PM EST Phone (Outgoing) Stanton Milner (Self) [phone] (H) Left Message Patient-Reported Symptoms: Patient Findings Positives: Hospital admission Comments: Pt was discharged from [facility] to home. Pt was admitted for Syncope/Pneumonia. Pertinent medications changes Doxycyline, Zyvox, Cefidir and Prednisone..None of which are known significant interactions. Advised to call if NVD >24 hours. INR at discharge was 3.1. Pt was provided the following directions at discharge: follow up with [facility] Objective Current Warfarin Dose As of 07/27/2023 Warfarin maintenance plan: 5 mg (5 mg x 1) every Wed, Fri; 2.5 mg (5 mg x 0.5) all other days INR Result As of 07/27/2023 INR goal: 2.0-3.0 INR used for dosing: No new INR was available at the time of this encounter. Assessment & Plan Warfarin Plan As of 07/27/2023 Full warfarin instructions: 5 mg every Wed, Fri; 2.5 mg all other days Next INR check: 08/02/2023 Repeat PT/INR in 1 week(s) Weekly dose: not changed Additional Dosing Information: Description GML(MTuTh) - pt prefers es GML at this time Keren Sanchez RP Clinical Pharmacist 07/27/2023, 3:54 PM documented in this encounter Plan of Treatment Upcoming Encounters Date Type Department Care Team (Late st Contact Info) Description 08/02/2023 12:00 PM EST Office Visit General Internal Medicine [facility] [address] [place] [address] Roberto Askew MD [address] [place] [address] 08/03/2023 6:00 AM EST Anticoagulation Pharmacy Call Center WB [phone] [facility] [place] [address] [facility] [address] [facility] [place] [address] Health Maintenance Due Date Last Done Comments DISCUSS TOBACCO CESSATION (REFER TO SMARTSET #1691) 1970 HIV Screening 1985 Pneumococcal Vaccine: Pediatrics (0 to 5 Years) and At-Risk Patients (6 to 64 Years) (2 - PCV) 05/22/2010 05/22/2009 Cologuard 2015 Fecal Occult Blood Test 2015 Sigmoidoscopy 2015 *ADVANCE DIRECTIVE NOT ON FILE 02/03/2020 LUNG CANCER SCREENING - USE SMARTSET [id number] 2020 02/10/2019, 07/19/2017, 05/09/2017, Additional history exists [...] this encounter Medical Devices Implanted Type Area Senior Ios Developer Device Identifier Shelf Expiration Date Model / Serial / Lot Tube Flex 3.0x2.5 [id number] - [id number] Implanted:Qty: 1 on 12/07/2014 by Juancarlos Trinidad [place] [facility] [place] Finger LANDON : ORTHOPAEDICS 11/18/2015 [id number] / / [id number] documented as of this encounter Visit Diagnoses [...] the patient have Health Care Power of Metal Casket Assembler? No Healthcare Agents on File Name Relationship Healthcare Agent Relationship Communication Estrella Seth Other - (no specific identity) Health Care Power of Metal Casket Assembler Care Teams Physical Integration Practitioner Relationship Specialty Start Date End Date Roberto Askew MD [address] [place] [address] PCP - General Internal Medicine 04/10/20 documented as of this encounter
--- OUTSIDE RECORDS SUMMARY | 2023-08-22 22:06 | External Medical Summary | Summary of Care ---
Author Name Unknown Organization [facility] Address [address] [place] [address] Phone [phone] Care Team Providers Care Jv Baseball Coach Name Role Phone Roberto Griffin MD Primary Care Provider + Reason for Visit * Reason Comments eRx-Medication Refill Encounter Details Date Type Department Care Team (Late st Contact Info) Description 07/25/2023 Refill General Internal Medicine [facility] 200 [facility] [place] [address] Madina Pollock MD [address] [place] [address] Allergies Active Allergy Reactions Criticality Noted Date [...] day as needed. 0 Active nystatin (NYSTOP) 291638 UNIT/GM powderIndications:C utaneous candidiasis Apply topically to [...] :COPD, group C, by GOLD 2017 classification ([facility]),COPD, group D, by GOLD 2017 classification ([facility]) USE 2 PUFFS BY MOUTH EVERY 4 HOURS NEEDED SHORT OF BREATH 6.7 g 5 2 Active Magnesium Oxide 400 (241.3 Mg) MG Oral TabletIndications:C oronary artery disease involving [place] coronary artery of [place] heart without angina pectoris Take by mouth [...] goal of less than 8.0% ([facility]) Use as directed. 1 Kit 0 3 Active Accu-Chek Guide In Vitro Strip (Glucose Blood)Indications:T ype 2 diabetes mellitus with hemoglobin A1c goal of less than 8.0% ([facility]) Use to check sugars 3 times a day 100 Strip 1 3 Active Accu-Chek Softclix LancetsIndications: Type 2 diabetes mellitus with hemoglobin A1c goal of less than 8.0% ([facility]) Use to check sugars 3 [...] MG Oral TabletIndications:C oronary artery disease involving [place] coronary artery of [place] heart without angina pectoris Take 1 Tablet by mouth in the morning. In the morning.. 90 Tablet 1 3 Active Metoprolol Succinate ER 50 MG Oral Tablet Extended Release 24 Hour (toPROL XL)Indications:Freddie nary artery disease involving [place] coronary artery of [place]upai heart without angina pectoris TAKE 1 & [...] IN THE MORNING 180 Capsule 1 3 Active Tamsulosin HCl 0.4 MG Oral Capsule (Flomax) Take 2 Capsules by mouth in the morning. 30 Capsule 1 3 023 Discontinued documented as of [...] 01/24/2021 Opioid dependence, uncomplicated 01/22/2021 History of [place] (myocardial infarction) 01/22/2021 Morbid obesity with BMI of 50.0-59.9, adult 09/20 History of subdural hematoma 10/04/2020 Gastroesophageal reflux disease without esophagi tis 10/04/2020 History of subarachnoid hemorrhage 10/04/2020 Coronary artery disease invo lving havasupai heart without angina pectoris 10/04/2020 COPD, group [...] Obesity protocol #1 BMI 40.0-44.9, adult 10/04/2017 01/15/2 018 Overview: bmi= 44.48 10/04/16 Opioid dependence [...] Calculus of kidney 08/20/2015 8 Overview: right, [place] CT Vitamin D deficiency 01/31/2015 018 Body [...] mRNA, LNP-s, No Pre serve, 2-Dose Series ([employer]) 01/02/2021,12/05/2020 DTP Vaccine 07/19/2017,04/03/2014 Hepatitis B, [...] encounter Miscellaneous Notes * Telephone Encounter - Manuel Quiñones, [facility] - 07/26/2023 12:21 PM ESTSigned Prescriptions: Disp Refills Tamsulosin HCl 0.4 MG Oral Capsule (Flomax)180 Ca*1 Sig: TAKE 2 CAPSULES BY MOUTH IN THE MORNINGAuthorizing Provider: ROBERTO GRIFFIN User: MANUEL VANCE documented in this encounter Plan of Treatment Upcoming Encounters Date Type Department Care Team (Late st Contact Info) Description 08/02/2023 12:00 PM EST Office Visit General Internal Medicine [facility] [address] [place] [address] Roberto Griffin MD 200 [facility] [place] [address] Health Maintenance Due Date Last Done Comments DISCUSS TOBACCO CESSATION (REFER TO SMARTSET #3001) 1970 HIV Screening 1985 Pneumococcal Vaccine: Pediatrics (0 to 5 Years) and At-Risk Patients (6 to 64 Years) (2 - PCV) 05/22/2010 05/22/2009 Cologuard 2015 Fecal Occult Blood Test 2015 Sigmoidoscopy 2015 *ADVANCE DIRECTIVE NOT ON FILE 02/03/2020 LUNG CANCER SCREENING - USE SMARTSET [id number] 2020 02/10/2019, 07/19/2017, 05/09/2017, Additional history exists Zoster Vaccines (1 of 2) 2020 Hepatitis B (3 of 3 - 19+ 3-dose series) 10/11/2020 06/05/2020, 04/10/2020 Diabetic Foot Exam 12/13/2020 12/14/2019, 1 11/03/2014, 09/03/2014 Albumin/Creatinine Ratio 04/10/2021 04/10/2020 Depression Screening 05/01/2021 05/01/2020, 02/02/20 18 Diabetic Eye Exam 11/19/2021 11/19/2020, 04/10/2020 HbA1c 09/18/2022 03/19/2022, 03/2 05/2022, 06/05/2021, Additional history exists COVID-19 Vaccine ( [...] this encounter Medical Devices Implanted Type Area Cooper Apprentice Device Identifier Shelf Expiration Date Model / Serial / Lot Tube Flex 3.0x2.5 [id number] - [id number] Implanted:Qty: 1 on 12/07/2014 by Juancarlos Trinidad MD at [facility] Left: Finger LANDON : ORTHOPAEDICS 11/18/2015 [id number] / / [id number] documented as of this encounter Advance Directives [...] the patient have Health Care Power of Anchorer? No Healthcare Agents on File Name Relationship Healthcare Agent Relationship Communication Estrella Seth Other - (no specific identity) Health Care Power of Anchorer Care Teams Jv Baseball Coach Relationship Specialty Start Date End Date Roberto Griffin MD [address] [place] [address], [place] [address] PCP - General Internal Medicine 04/10/20 documented as of this encounter
--- OUTSIDE RECORDS SUMMARY | 2023-08-22 22:06 | External Medical Summary | Summary of Care ---
Author Name Unknown Organization [facility] Address [address] [place] [address] Phone [phone] Care Team Providers Care Warehouse Director Name Role Phone Roberto Askew MD Primary Care Provider + Reason for Visit * Reason Onset Date Comments Follow Up 03/18/2023 Encounter Details Date Type Department Care Team ([facility] st Contact Info) Description 03/18/2023 Telephone Ancillary [facility] [address] [place] [address] Kimmy Hill, ALEXANDER Follow Up Allergies Active Allergy Reactions Criticality Noted Date [...] day as needed. 0 Active nystatin (NYSTOP) 495933 UNIT/GM powderIndications:C utaneous candidiasis Apply topically to [...] daily with breakfast. 90 Tab 1 06/20/20 20 Active Buprenorphine HCl 8 MG Sublingual Tablet [...] :COPD, group C, by GOLD 2017 classification ([facility]),COPD, group D, by GOLD 2017 classification ([facility]) USE 2 PUFFS BY MOUTH EVERY 4 HOURS NEEDED SHORT OF BREATH 6.7 g 5 11/25/19 22 Active Magnesium Oxide 400 (241.3 Mg) MG Oral TabletIndications:C oronary artery disease involving [place] coronary artery of [place] heart without angina pectoris Take by mouth [...] hemoglobin A1c goal of less than 8.0% ([facility]) Use as directed. 1 Kit 0 10/30/19 23 Active Accu-Chek Guide In Vitro Strip (Glucose Blood)Indications:T ype 2 diabetes mellitus with hemoglobin A1c goal of less than 8.0% (HCC) Use to check sugars 3 times a day 100 Strip 1 10/30/19 23 Active Accu-Chek Softclix LancetsIndications: Type 2 diabetes mellitus with hemoglobin A1c goal of less than 8.0% ([facility]) Use to check sugars 3 times a day 100 Each 3 10/30/19 23 Active Ondansetron HCl 4 MG Oral Tablet (Zofran)Indications :Nausea TAKE 1 TABLET BY MOUTH EVERY 8 HOURS NEEDED NAUSEA 20 Tablet 1 12/04/19 23 Active Spironolactone 25 MG Oral Tablet (Aldactone) Take 1 Tablet by mouth in the morning. In the morning.. 90 Tablet 2 12/11/19 23 Active glipiZIDE 10 MG Oral Tablet (Glucotrol)Indicati ons:Diabetes mellitus with nephropathy (HCC) TAKE ONE TABLET BY MOUTH 2 TIMES A DAY 30 MINUTES BEFORE A MEAL 180 Tablet 1 12/11/19 23 Active Ondansetron HCl 4 MG Oral Tablet (Zofran) TAKE 1 TABLET EVERY 8 HOURS NEEDED FOR NAUSEA 20 Tablet 1 12/25/19 23 Active guaiFENesin-Codeine 100-10 MG/5ML Oral Syrup (Robitussin AC) Take 5 mL by mouth 3 times a day as needed for Cough. 120 mL 0 12/26/19 23 Active Benzonatate 100 MG Oral Capsule (Tessalon Perles) TAKEONE CAPSULE BY MOUTH EVERY MORNING, ONE AT NOON, AND ONE EVERY EVENING, FOR COUGH. 20 Capsule 0 12/31/19 23 Active Tamsulosin HCl 0.4 MG Oral Capsule (Flomax) TAKE ONE CAPSULE BY MOUTH DAILY. 30 Cap 11 03/27/20 21 023 Discontinued(Re fill) Folic Acid 1 MG Oral Tablet Take by mouth 1 Tablet in the morning. 90 Tablet 2 06/15/20 22 023 Discontinued(Re fill) Warfarin Sodium 5 MG Oral Tablet (Coumadin)Indicatio ns:History of pulmonary embolism TAKE 1/2 TO 1 TABLET EVERY DAY DIRECTED BY COUMADIN CLINIC. 90 Tablet 3 07/16/20 22 023 Discontinued(Re fill) Atorvastatin Calcium 80 MG Oral Tablet (Lipitor) Take by mouth 1 Tablet in the morning. To take in the afternoon.. 30 Tablet 1 07/23/20 22 023 Discontinued(Re fill) Cyclobenzaprine HCl 10 MG Oral Tablet (Flexeril)Indicatio ns:Chronic pain syndrome TAKE ONE TABLET BY MOUTH 2 TIMES A DAY NEEDED FOR MUSCLE SPASMS 60 Tablet 5 12/02/19 23 023 Discontinued DULoxetine HCl 60 MG Oral Capsule Delayed Release Particles (Cymbalta)Indicatio ns:DM type 2 with diabetic peripheral neuropathy (HCC),Chronic bilateral low back pain without sciatica Take 1 Capsule by mouth in the morning. 90 Capsule 1 12/04/19 23 023 Discontinued Furosemide 40 MG Oral Tablet (Lasix) Take 1 Tablet by mouth in the morning and 1 Tablet before bedtime. 180 Tablet 2 12/04/19 23 023 Discontinued(Wi dication List Clean Up) metOLazone 2.5 MG Oral Tablet (Zaroxolyn) Take 1 Tablet by mouth once a day on Wednesday, Wednesday, and Wednesday only. 28 Tablet 3 12/05/19 23 023 Discontinued Isosorbide Dinitrate 30 MG Oral TabletIndications:C oronary artery disease involving [place] coronary artery of [place] heart without angina pectoris TAKE ONE TABLET BY MOUTH EVERY MORNING 90 Tablet 1 12/05/19 23 023 Discontinued(Re fill) Omeprazole 20 MG Oral Capsule Delayed Release (PriLOSEC) TAKE ONE CAPSULE BY MOUTH 1 HOUR BEFORE THE 1ST MEAL OF THE DAY 90 Capsule 1 12/05/19 23 023 Discontinued(Re fill) Gabapentin 800 MG Oral Tablet (Neurontin)Indicati ons:DM type 2 with diabetic peripheral neuropathy (HCC) Take 1 Tablet by mouth in the morning and 1 Tablet at noon and 1 Tablet before bedtime. 270 Tablet 1 12/11/19 23 023 Discontinued Metoprolol Succinate ER 50 MG Oral Tablet Extended Release 24 Hour (toPROL XL)Indications:Freddie nary artery disease involving [place] coronary artery of [place] heart without angina pectoris TAKE 1 & 1/2 TABLETS by mouth 2 TIMES A DAY 270 Tablet 2 12/10/19 23 023 Discontinued(Re fill) Potassium Chloride Terra ER 20 MEQ Oral Tablet Extended ReleaseIndications: Hypokalemia TAKE ONE TABLET BY MOUTH EVERY MORNING AND AT BEDTIME 60 Tablet 3 12/10/19 23 023 Discontinued Famotidine 20 MG Oral Tablet (Pepcid)Indications :Gastroesophageal reflux disease without esophagitis TAKE 1 TABLET BY MOUTH EVERY MORNING 90 Tablet 1 12/17/19 23 023 Discontinued(Re fill) Finasteride 5 MG Oral Tablet (Proscar)Indication s:BPH with obstruction/lower urinary tract symptoms TAKE ONE TABLET BY MOUTH EVERY DAY INTHE MORNING 90 Tablet 1 12/17/19 23 023 Discontinued(Re fill) predniSONE 10 MG Oral Tablet (Deltasone) Take 1 Tablet by mouth in the morning. Follow taper instructions from [facility]. 0 12/26/19 23 023 Discontinued(Wi dication List Clean Up) documented as of this encounter (statuses as [...] 01/24/2021 Opioid dependence, uncomplicated 01/22/2021 History of [place] (myocardial infarction) 01/22/2021 Morbid obesity with BMI of 50.0-59.9, adult 09/20 History of subdural hematoma 10/04/2020 Gastroesophageal reflux disease without esophagi tis 10/04/2020 History of subarachnoid hemorrhage 10/04/2020 Coronary artery disease invo lving [place] heart without angina pectoris 10/04/2020 COPD, group [...] Calculus of kidney 08/20/2015 8 Overview: right, [place] CT Vitamin D deficiency 01/31/2015 018 Body [...] mRNA, LNP-s, No Pre serve, 2-Dose Series ([employer]) 01/02/2021,12/05/2020 DTP Vaccine 07/19/2017,04/03/2014 Hepatitis B, 20+ [...] encounter Miscellaneous Notes * Telephone Encounter - Alexa Fink CMA - 03/19/2023 11:26 AM EDT Patient is taking 40mg BID lasix, Patient states he is unable to fit in a regular vehicle. He is agreeable to private transportation depending of cost, [employer] offers non emergent transportation for patients, unsure of cost. Please advise * Telephone Encounter - Roberto Askew MD - 03/18/2023 5:04 PM EDT He needs to be seen, needs to schedule hospital follow up which he missed this past week! I would also try to confirm current lasix dosage. * Telephone Encounter - Bear Couch OSA - 03/18/2023 3:30 PM EDT [facility] is calling to report that pt was aware before discharge that they were unable to set up home care for the pt. Unfortunately pt has burn many bridges with home care nurse that none in the are would take on his case. * Telephone Encounter - Kimmy Hill RN - 03/18/2023 1:59 PM EDT Returned phone call to Bill. He wanted me to know he is home from rehab, "Worse than when he went in." States he is over 500 lbs, his knee "blew out" His toe 'has a split in it" and his legs are "swollen and "leaking" wanted to know if he should take more lasix. Explained I was unable to prescribe medications as an RN. I asked if he could come in for an appointment, and he said no. He can "barely make it to the bathroom and that's only if his helps him up." I asked if [facility] had arranged for any home health and he said he was waiting to hear from them. Instructed patient to call [facility] casework manager back to see which home health company would be coming to see him. He asked if Dr. Askew thought he should take more lasix, and I explained that since hasn't seen him in so long, he would be hesitant to prescribe anything for him, but that I would ask. Patient was discharged from [facility]'s swing bed on 03/15. documented in this encounter Plan of Treatment Upcoming Encounters Date Type Department Care Team (Late st Contact Info) Description 07/23/2023 6:00 AM EDT Anticoagulation Pharmacy Call Center WB [address] [facility] [place] [address] [facility] 58 60 [facility] [place] [address] Health Maintenance Due Date Last Done Comments DISCUSS TOBACCO CESSATION (REFER TO SMARTSET #3052) 1970 HIV Screening 1985 Pneumococcal Vaccine: Pediatrics (0 to 5 Years) and At-Risk Patients (6 to 64 Years) (2 - PCV) 05/22/2010 05/22/2009 Cologuard 2015 Fecal Occult Blood Test 2015 Sigmoidoscopy 2015 *ADVANCE DIRECTIVE NOT ON FILE 02/03/2020 LUNG CANCER SCREENING - USE SMARTSET [id number] 2020 02/10/2019, 07/19/2017, 05/09/2017, Additional history exists Zoster Vaccines (1 of 2) 2020 Hepatitis B (3 of 3 - 19+ 3-dose series) 10/11/2020 06/05/2020, 04/10/2020 Diabetic Foot Exam 12/13/2020 12/14/2019, 1 11/03/2014, 09/03/2014 Albumin/Creatinine Ratio 04/10/2021 04/10/2020 Depression Screening 05/01/2021 05/01/2020, 02/02/20 18 Diabetic Eye Exam 11/19/2021 11/19/2020, 04/10/2020 HbA1c 09/18/2022 03/19/2022, 0305/2022, 06/05/2021, Additional history exists COVID-19 Vaccine (2022- season) 2023 01/02/2021, 12/05/2020 Influenza Vaccine (FLU [...] this encounter Medical Devices Implanted Type Area Lead Application Architect Device Identifier Shelf Expiration Date Model / Serial / Lot Tube Flex 3.0x2.5 [id number] - [id number] Implanted:Qty: 1 on 12/07/2014 by Juancarlos Trinidad MD at [facility] Left: Finger [employer]ANDON : ORTHOPAEDICS 11/18/2015 [id number] / / [id number] documented as of this encounter Advance Directives [...] the patient have Health Care Power of Gallery Or Museum Technician? No Healthcare Agents on File Name Relationship Healthcare Agent Relationship Communication Estrella Seth Other - (no specific identity) Health Care Power of Gallery Or Museum Technician Care Teams Warehouse Director Relationship Specialty Start Date End Date Roberto Askew MD [address] [facility] [place] [address] PCP - General Internal Medicine 04/10/20 documented as of this encounter
--- OUTSIDE RECORDS SUMMARY | 2023-08-22 22:07 | External Medical Summary | Summary of Care ---
Author Name Unknown Organization [facility] Address [address] [place] [address] Phone [phone] Care Team Providers Care Bait Maker Name Role Phone Roberto Askew MD Primary Care Provider + Reason for Visit * Reason Onset Date Comments Test Results 06/14/2023 Appointment 06/14/2023 Encounter Details Date Type Department Care Team (Late st Contact Info) Description 06/14/2023 Telephone General Internal Medicine [facility] [address] [place] [address] Roberto Askew MD [address] [place] [address] Test Results; Appointment Allergies Active Allergy Reactions Criticality Noted [...] as of this encounter (statuses as of 07/14/2023) Medications Medication Sig Dispensed Refills Start Date [...] day as needed. 0 Active nystatin (NYSTOP) 482034 UNIT/GM powderIndications:C utaneous candidiasis Apply topically to [...] :COPD, group C, by GOLD 2017 classification (HCC),COPD, group D, by GOLD 2017 classification ([facility]) USE 2 PUFFS BY MOUTH EVERY 4 HOURS NEEDED SHORT OF BREATH 6.7 g 5 2 Active Magnesium Oxide 400 (241.3 Mg) MG Oral TabletIndications:C oronary artery disease involving hoh coronary artery of hoh heart without angina pectoris Take by mouth [...] hemoglobin A1c goal of less than 8.0% ([facility]) Use as directed. 1 Kit 0 3 Active Accu-Chek Guide In Vitro Strip (Glucose Blood)Indications:T ype 2 diabetes mellitus with hemoglobin A1c goal of less than 8.0% ([facility]) Use to check sugars 3 times a day 100 Strip 1 3 Active Accu-Chek Softclix LancetsIndications: Type 2 diabetes mellitus with hemoglobin A1c goal of less than 8.0% ([facility]) Use to check sugars 3 times a day 100 Each 3 3 Active Ondansetron HCl 4 MG Oral Tablet (Zofran)Indications :Nausea TAKE 1 TABLET BY MOUTH EVERY 8 HOURS NEEDED NAUSEA 20 Tablet 1 3 Active Spironolactone 25 MG Oral Tablet (Aldactone) Take 1 Tablet by mouth in the morning. In the morning.. 90 Tablet 2 3 Active glipiZIDE 10 MG Oral Tablet (Glucotrol)Indicati ons:Diabetes mellitus with nephropathy (HCC) TAKE ONE TABLET BY MOUTH 2 TIMES A DAY 30 MINUTES BEFORE A MEAL 180 Tablet 1 3 Active Ondansetron HCl 4 MG Oral [...] MG Oral TabletIndications:C oronary artery disease involving hoh coronary artery of hoh heart without angina pectoris Take 1 Tablet by mouth in the morning. In the morning.. 90 Tablet 1 3 Active Metoprolol Succinate ER 50 MG Oral Tablet Extended Release 24 Hour (toPROL XL)Indications:Freddie nary artery disease involving hoh coronary artery of hoh heart without angina pectoris TAKE 1 & [...] THE DAY 90 Capsule 1 3 Active Tamsulosin HCl 0.4 MG Oral Capsule (Flomax) Take 2 Capsules by mouth in the morning. 60 Capsule 1 3 Active Famotidine 20 MG [...] 1 Tablet before bedtime. 270 Tablet 1 3 023 Discontinued documented as of this encounter (statuses as of 07/14/2023) Active Problems Problem Noted Date Diagnosed Date [...] 01/24/2021 Opioid dependence, uncomplicated 01/22/2021 History of ND (myocardial infarction) 01/22/2021 Morbid obesity with BMI of 50.0-59.9, adult 09/20 History of subdural hematoma 10/04/2020 Gastroesophageal reflux disease without esophagi tis 10/04/2020 History of subarachnoid hemorrhage 10/04/2020 Coronary artery disease invo lving hoh heart without angina pectoris 10/04/2020 COPD, group [...] as of this encounter (statuses as of 07/14/2023) Resolved Problems Problem Noted Date Diagnosed Date [...] Calculus of kidney 08/20/2015 8 Overview: right, [place] CT Vitamin D deficiency 01/31/2015 018 Body [...] as of this encounter (statuses as of 07/14/2023) Immunizations Name Administration Dates Next Due COVID-19 mRNA, LNP-s, No Pre serve, 2-Dose Series ([employer]) 01/02/2021,12/05/2020 DTP Vaccine 07/19/2017,04/03/2014 Hepatitis B, 20+ [...] encounter Miscellaneous Notes * Telephone Encounter - DARIA Vega - 07/14/2023 9:31 AM EDT Called pt, he wanted me to reiterate that "he doesn't have a ride and will call when he does" 07/14 JAT * Telephone Encounter - Roberto Askew MD - 07/13/2023 3:59 PM EDT Last OV >2 years ago, needs in person * Telephone Encounter - Meredith Carroll LPN - 07/13/2023 3:33 PM EDT Patient aware and verbalized understanding States he knows that provider would like for him to come in for an appointment. States recently he was having some stomach issues that caused him to stay in his hospital bed for almost over a week. Is also having trouble finding a ride for an appointment Was wondering about a video visit instead? Pt states he is aware the answer may be no * Telephone Encounter - Johnny Moreno LPN - 06/14/2023 11:34 AM EDT Attempted to call patient, phone was busy. * Telephone Encounter - Johnny Moreno LPN - 06/14/2023 11:34 AM EDT ----- Message from Roberto Askew MD sent at 06/14/2023 10:47 AM EDT ----- Lft improving, recheck 2-3 months to follow Sodium, kidney function and potassium all normalized, and sugar better Wbc better as well, will recheck 2-3 months documented in this encounter Plan of Treatment Upcoming Encounters Date Type Department Care Team (Late st Contact Info) Description 07/15/2023 9:10 AM EDT Laboratory Lab Mobile Phlebotomy [facility] [place] [address] [place] [address] [facility] [place] Mobile Home Draw [address] [place] [address] 07/16/2023 6:00 AM EDT Anticoagulation Pharmacy Call Center [phone] [place] [address] [facility] [address] [facility] [place] [address] Health Maintenance Due Date Last Done Comments DISCUSS TOBACCO CESSATION (REFER TO SMARTSET #3912) 1970 HIV Screening 1985 Pneumococcal Vaccine: Pediatrics (0 to 5 Years) and At-Risk Patients (6 to 64 Years) (2 - PCV) 05/22/2010 05/22/2009 Cologuard 2015 Fecal Occult Blood Test 2015 Sigmoidoscopy 2015 *ADVANCE DIRECTIVE NOT ON FILE 02/03/2020 LUNG CANCER SCREENING - USE SMARTSET [id number] 2020 02/10/2019, 07/19/2017, 05/09/2017, Additional history exists Zoster Vaccines (1 of 2) 2020 Hepatitis B (3 of 3 - 19+ 3-dose series) 10/11/2020 06/05/2020, 04/10/2020 Diabetic Foot Exam 12/13/2020 12/14/2019, 1 11/03/2014, 09/03/2014 Albumin/Creatinine Ratio 04/10/2021 04/10/2020 Depression Screening 05/01/2021 05/01/2020, 02/02/20 18 DIABETES-EYE EXAM 11/19/2021 11/19/2020, 04/10/2020 HbA1c 09/18/2022 03/19/2022, 11/19, [...] this encounter Medical Devices Implanted Type Area Camp Guard Device Identifier Shelf Expiration Date Model / Serial / Lot Tube Flex 3.0x2.5 [id number] - [id number] Implanted:Qty: 1 on 12/07/2014 by Juancarlos Trinidad MD at [facility] Left: Finger LANDON : ORTHOPAEDICS 11/18/2015 [id number] / / [id number] documented as of this encounter Advance Directives [...] the patient have Health Care Power of Vegetables Cook? No Healthcare Agents on File Name Relationship Healthcare Agent Relationship Communication Estrella Seth Other - (no specific identity) Health Care Power of Vegetables Cook Care Teams Bait Maker Relationship Specialty Start Date End Date Roberto Askew MD [address] [place] [address] PCP - General Internal Medicine 04/10/20 documented as of this encounter
--- OUTSIDE RECORDS SUMMARY | 2023-08-22 22:07 | External Medical Summary ---
Author Name Unknown Address Unknown Organization K[facility] [address] [place] [address] Laboratory Report Ordering Provider Test Date Status TULIO TRONCOSO 07/15/2023 08:38:00 Final Standing order for pt/inr. < br/>Please draw pt/inr every 1 to 4 weeks as requested
Results to [facility]

Warfarin Therapy
INR: 2.0-3.0 conventional anticoagulation
INR: 2.5-3.5 high intensity anticoagulation Observation Date Value Abnormality Reference (Units ) Status PT 07/15/2023 08:38:00 30.0 Above high normal 11 .6-15.2 (seconds) Final INR 07/15/2023 08:38:00 2.8 Above high normal 0. 8-1.2 Final Performing Location [facility] [address] [place] [id number]
--- OUTSIDE RECORDS SUMMARY | 2023-08-22 22:07 | External Medical Summary | Summary of Care ---
Author Name Unknown Organization [facility] Address [address] [place] [address] Phone [phone] Care Team Providers Care Attendance Clerk Name Role Phone Roberto Askew MD Primary Care Provider + Reason for Visit * Reason Comments Dosage Adjustment Via Phone (anticoag Cl inic) Encounter Details Date Type Department Care Team (Latest Contact Info) Description 07/16/2023 6:00 AM EDT Anticoagulation Pharmacy Call Center [phone] [place] [address] [facility] [address] [place] [address] History of pulmonary embolism* Allergies Active Allergy [...] as of this encounter (statuses as of 07/16/2023) Medications Medication Sig Dispensed Refills Start Date [...] day as needed. 0 Active nystatin (NYSTOP) 907020 UNIT/GM powderIndications:Cut aneous candidiasis Apply topically to [...] OPD, group C, by GOLD 2017 classification ([facility]),COPD, group D, by GOLD 2017 classification ([facility]) USE 2 PUFFS BY MOUTH EVERY 4 HOURS NEEDED SHORT OF BREATH 6.7 g 5 11/24/2021 Active Magnesium Oxide 400 (241.3 Mg) MG Oral TabletIndications:Cor onary artery disease involving [place] coronary artery of [place] heart without angina pectoris Take by mouth [...] HEALTHCARE) Use as directed. 1 Kit 0 10/30/2022 [...] the morning.. 90 Tablet 2 12/10/2022 Active glipiZIDE 10 MG Oral Tablet (Glucotrol)Indication s:Diabetes mellitus with nephropathy (HCC) TAKE ONE TABLET BY MOUTH 2 TIMES A DAY 30 MINUTES BEFORE A MEAL 180 Tablet 1 12/10/2022 Active Ondansetron HCl 4 MG Oral [...] MG Oral TabletIndications:Cor onary artery disease involving [place] coronary artery of [place] heart without angina pectoris Take 1 Tablet by mouth in the morning. In the morning.. 90 Tablet 1 04/05/2023 Active Metoprolol Succinate ER 50 MG Oral Tablet Extended Release 24 Hour (toPROL XL)Indications:Harman ry artery disease involving [place] coronary artery of [place] heart without angina pectoris TAKE 1 & [...] THE DAY 90 Capsule 1 04/21/2023 Active Tamsulosin HCl 0.4 MG Oral Capsule (Flomax) Take 2 Capsules by mouth in the morning. 60 Capsule 1 04/21/2023 Active Famotidine 20 MG [...] as of this encounter (statuses as of 07/16/2023) Active Problems Problem Noted Date Diagnosed Date [...] 01/24/2021 Opioid dependence, uncomplicated 01/22/2021 History of PR (myocardial infarction) 01/22/2021 Morbid obesity with BMI of 50.0-59.9, adult 09/20 History of subdural hematoma 10/04/2020 Gastroesophageal reflux disease without esophagi tis 10/04/2020 History of subarachnoid hemorrhage 10/04/2020 Coronary artery disease invo lving [place] heart without angina pectoris 10/04/2020 COPD, group [...] as of this encounter (statuses as of 07/16/2023) Resolved Problems Problem Noted Date Diagnosed Date [...] Calculus of kidney 08/20/2015 8 Overview: right, [place] CT Vitamin D deficiency 01/31/2015 018 Body [...] as of this encounter (statuses as of 07/16/2023) Immunizations Name Administration Dates Next Due COVID-19 mRNA, LNP-s, No Pre serve, 2-Dose Series ([employer]) 01/02/2021,12/05/2020 DTP Vaccine 07/19/2017,04/03/2014 Hepatitis B, 20+ [...] of this encounter Progress Notes * Keren Tipton CPhT - 07/16/2023 9:38 AM EDT Contacts Type Contact Phone/Fax 07/16/2023 09:36 AM EDT Phone (Outgoing) Estrella Seth (Emergency Contact) [phone] Subjective Patient Findings Negatives: Signs/symptoms of bleeding, Change in health, Change in activity, Upcoming invasive procedure, Missed doses, Extra doses, Change in medications, Change in diet/appetite, Bruising Advised patient to contact Anticoagulation Clinic if any unusual bruising or bleeding, recent illness, changes in medication, or questions/concerns. PT/INR results, Coumadin dose instructions, and next PT/INR date communicated as noted by Pharmacist: Yes Keren Tipton CPhT 07/16/2023, 9:38 AM * Keren Sanchez RP - 07/16/2023 8:23 AM EDT Coumadin Clinic (region specific) Objective Current Warfarin Dose As of 07/16/2023 Warfarin maintenance plan: 5 mg (5 mg x 1) every Mon, Wed, Fri; 2.5 mg (5 mg x 0.5) all other days INR Result As of 07/16/2023 INR goal: 2.0-3.0 INR used for dosin.8 (07/15/2023) Assessment & Plan Warfarin Plan As of 07/16/2023 Full warfarin instructions: 5 mg every Wed, Fri; 2.5 mg all other days Next INR check: 07/22/2023 Repeat PT/INR in 1 week(s) Weekly dose: decreased since previous 2 wks INRs were both elevated Additional Dosing Information: Description [facility] - pt prefers [facility] at this time Tech to contact patient with dose instructions as noted. Keren Sanchez RPh 07/16/2023, 8:23 AM documented in this encounter Plan of Treatment Upcoming Encounters Date Type Department Care Team (Late st Contact Info) Description 07/22/2023 9:30 AM EDT Laboratory Lab Mobile Phlebotomy [facility] [address] [place] [address] [facility] [place] Mobile Home Draw [address] [place] [address] 07/23/2023 6:00 AM EDT Anticoagulation Pharmacy Call Center [phone] [place] [address] [facility] [address] [place] [address] Health Maintenance Due Date Last Done Comments DISCUSS TOBACCO CESSATION (REFER TO SMARTSET #7978) 1970 HIV Screening 1985 Pneumococcal Vaccine: Pediatrics (0 to 5 Years) and At-Risk Patients (6 to 64 Years) (2 - PCV) 05/22/2010 05/22/2009 Cologuard 2015 Fecal Occult Blood Test 2015 Sigmoidoscopy 2015 *ADVANCE DIRECTIVE NOT ON FILE 02/03/2020 LUNG CANCER SCREENING - USE SMARTSET [id number] 2020 02/10/2019, 07/19/2017, 05/09/2017, Additional history exists Zoster Vaccines (1 of 2) 2020 Hepatitis B (3 of 3 - 19+ 3-dose series) 10/11/2020 06/05/2020, 04/10/2020 Diabetic Foot Exam 12/13/2020 12/14/2019, 1 11/03/2014, 09/03/2014 Albumin/Creatinine Ratio 04/10/2021 04/10/2020 Depression Screening 05/01/2021 05/01/2020, 02/02/20 18 DIABETES-EYE EXAM 11/19/2021 11/19/2020, 04/10/2020 HbA1c 09/18/2022 03/19/2022, 03/05/2022, [...] this encounter Medical Devices Implanted Type Area Instructional Technology Coordinator Device Identifier Shelf Expiration Date Model / Serial / Lot Tube Flex 3.0x2.5 [id number] - [id number] Implanted:Qty: 1 on 12/07/2014 by Juancarlos Trinidad MD at [place] [facility] Left: Finger [employer] : ORTHOPAEDICS 11/18/2015 [id number] / / [id number] documented as of this encounter Visit Diagnoses [...] the patient have Health Care Power of Prevention Coordinator? No Healthcare Agents on File Name Relationship Healthcare Agent Relationship Communication Estrella Seth Other - (no specific identity) Health Care Power of Prevention Coordinator Care Teams Attendance Clerk Relationship Specialty Start Date End Date Roberto Askew MD [address] [place] [address] PCP - General Internal Medicine 04/10/20 documented as of this encounter
--- OUTSIDE RECORDS SUMMARY | 2023-08-22 22:07 | External Medical Summary | Summary of Care ---
Author Name Unknown Organization [facility] Address [address] [place] [address] Phone [phone] Care Team Providers Care Superintendent Circus Name Role Phone Roberto Griffin MD Primary Care Provider + Reason for Visit * Reason Onset Date Comments Medication Refill 07/21/2023 Encounter Details Date Type Department Care Team (Late st Contact Info) Description 07/21/2023 Refill General Internal Medicine [facility] [address] [facility] [place] [address] Madina Pollock MD [address] [place] [address] Allergies Active Allergy Reactions Criticality Noted Date [...] day as needed. 0 Active nystatin (NYSTOP) 612865 UNIT/GM powderIndications:Cu taneous candidiasis Apply topically to [...] COPD, group C, by GOLD 2017 classification ([facility]),COPD, group D, by GOLD 2017 classification ([facility]) USE 2 PUFFS BY MOUTH EVERY 4 HOURS NEEDED SHORT OF BREATH 6.7 g 5 2 Active Magnesium Oxide 400 (241.3 Mg) MG Oral TabletIndications:Co ronary artery disease involving [place] coronary artery of [place] heart without angina pectoris Take by mouth [...] goal of less than 8.0% (HCC) Use as directed. 1 Kit 0 3 [...] 3 Active Benzonatate 100 MG Oral Capsule ([employer]ess[employer]elf[employer] [place]) TAKEONE CAPSULE BY MOUTH EVERY MORNING, ONE AT NOON, AND ONE EVERY EVENING, FOR COUGH. 20 Capsule 0 3 Active Isosorbide Dinitrate 30 MG Oral TabletIndications:Co ronary artery disease involving [place] coronary artery of [place] heart without angina pectoris Take 1 Tablet by mouth in the morning. In the morning.. 90 Tablet 1 3 Active Metoprolol Succinate ER 50 MG Oral Tablet Extended Release 24 Hour (toPROL XL)Indications:Coron uziel artery disease involving [place] coronary artery of [place] heart without angina pectoris TAKE 1 & [...] the morning. 30 Capsule 1 3 Active Tamsulosin HCl 0.4 MG Oral Capsule (Flomax) Take 2 Capsules by mouth in the morning. 60 Capsule 1 3 07/21/20 23 Discontinu ed(Refill) documented as of this [...] 01/24/2021 Opioid dependence, uncomplicated 01/22/2021 History of UT (myocardial infarction) 01/22/2021 Morbid obesity with BMI of 50.0-59.9, adult 09/20 History of subdural hematoma 10/04/2020 Gastroesophageal reflux disease without esophagi tis 10/04/2020 History of subarachnoid hemorrhage 10/04/2020 Coronary artery disease invo lving [place] heart without angina pectoris 10/04/2020 COPD, group [...] Calculus of kidney 08/20/2015 8 Overview: right, [place] CT Vitamin D deficiency 01/31/2015 018 Body [...] mRNA, LNP-s, No Pre serve, 2-Dose Series ([employer]) 01/02/2021,12/05/2020 DTP Vaccine 07/19/2017,04/03/2014 Hepatitis B, 20+ yrs 06/05/2020,04/10/202010/11 Pneumococcal Conjugate Vaccine, 7 Valent 013 Pneumococcal Polysaccharide PPV23 (Pneumovax) Seasonal Influenza Virus Vac cine, Unspecified Formulation 08/26/2013 TDAP (age 10 and older)(Boostrix) 06/08/2019 documented as of this encounter Social History Tobacco Use Types Packs/Day Years Used Date Smoking Tobacco: Every Day Cigarettes 2 32 Smokeless Tobacco: Current Chew Comments:03/31/21 currently smoking 1 ppd Alcohol Use Standard [...] Telephone Encounter - Roberto Griffin MD - 07/22/2023 12:19 PM EDT Signed Prescriptions: Disp Refills Tamsulosin HCl 0.4 MG Oral Capsule (Flomax)30 Cap*1 Sig: Take 2 Capsules by mouth in the morning.Authorizing Provider: ROBERTO GRIFFIN * Telephone Encounter - Yanique Marrufo LPN - 07/22/2023 12:07 PM EDTPending Prescriptions: Disp Refills Tamsulosin HCl 0.4 MG Oral Capsule (Flomax)180 Ca*3 Sig: Take 2 Capsules by mouth in the morning. * Telephone Encounter - Tyree Ceballos OSA - 07/21/2023 3:16 PM EDT Pending Prescriptions: Disp Refills Tamsulosin HCl 0.4 MG Oral Capsule (Floma*60 Cap*1 Sig: Take 2 Capsules by mouth in the morning. Last Visit: 08/10/2022 (in office), 12/10/2021 (telemedicine) Next Visit: Visit date not found Last date the medication was ordered: 04/21/2023 Patient Active Problem List Diagnosis Code Chronic pain syndrome G89.4 Do not give narcotics [id number] Allergic rhinitis J30.9 Depression with anxiety F41.8 Tobacco use disorder F17.200 History of pulmonary embolism Z86.711 History of drug overdose Z91.89 Venous insufficiency I87.2 Chronic diastolic heart failure ([facility]) I50.32 Unspecified mood (affective) disorder ([facility]) F39 Personality disorder, unspecified ([facility]) F60.9 Type 2 diabetes mellitus with hemoglobin A1c goal of less than 8.0% ([facility]) E11.9 Iron deficiency anemia due to chronic blood loss D50.0 Type 2 diabetes mellitus with diabetic dermatitis ([facility]) E11.620 Supraventricular tachycardia I47.10 DM type 2 with diabetic peripheral neuropathy ([facility]) E11.42 Diabetes mellitus with nephropathy ([facility]) E11.21 COPD, group D, by GOLD 2017 classification ([facility]) J44.9 Morbid obesity with BMI of 50.0-59.9, adult ([facility]) E66.01, Z68.43 History of subdural hematoma Z86.79 Gastroesophageal reflux disease without esophagitis K21.9 History of subarachnoid hemorrhage Z86.79 Coronary artery disease involving [place] heart without angina pectoris I25.10 Opioid dependence, uncomplicated ([facility]) F11.20 History of UT (myocardial infarction) I25.2 History of leukocytosis Z86.2 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 ([facility]) G47.33, J44.9 Chronic bilateral low back pain without sciatica M54.50, G89.29 Diabetic retinopathy of both eyes associated with type 2 diabetes mellitus ([facility]) E11.319 Type 2 diabetes mellitus with foot ulcer (CODE) ([facility]) E11.621 Low testosterone R79.89 Bandemia D72.825 Labs: [...] AM EDT Anticoagulation Pharmacy Call Center [phone] [facility] [place] [address] [facility] [address] [facility] [place] [address] Health Maintenance Due Date Last Done Comments DISCUSS TOBACCO CESSATION (REFER TO SMARTSET #3291) 1970 HIV Screening 1985 Pneumococcal Vaccine: Pediatrics (0 to 5 Years) and At-Risk Patients (6 to 64 Years) (2 - PCV) 05/22/2010 05/22/2009 Cologuard 2015 Fecal Occult Blood Test 2015 Sigmoidoscopy 2015 *ADVANCE DIRECTIVE NOT ON FILE 02/03/2020 LUNG CANCER SCREENING - USE SMARTSET 20289 2020 02/10/2019, 07/19/2017, 05/09/2017, Additional history exists [...] this encounter Medical Devices Implanted Type Area Turner Machine Device Identifier Shelf Expiration Date Model / Serial / Lot Tube Flex 3.0x2.5 [id number] - [id number] Implanted:Qty: 1 on 12/07/2014 by Juancarlos Trinidad MD at [place] [facility] Left: Finger [employer] : ORTHOPAEDICS 11/18/2015 [id number] / / [id number] documented as of this encounter Advance Directives [...] the patient have Health Care Power of Tile Setter Apprentice? No Healthcare Agents on File Name Relationship Healthcare Agent Relationship Communication Estrella Seth Other - (no specific identity) Health Care Power of Tile Setter Apprentice Care Teams Superintendent Circus Relationship Specialty Start Date End Date Roberto Griffin MD [address] [place] [address] PCP - General Internal Medicine 04/10/20 documented as of this encounter
--- OUTSIDE RECORDS SUMMARY | 2023-08-22 22:07 | External Medical Summary | Summary of Care ---
Author Name Unknown Organization [facility] Address [address] [place] [address] Phone [phone] Care Team Providers Care Floral Designer Name Role Phone Roberto Askew MD Primary Care Provider + Reason for Visit * Reason Onset Date Comments Test Results 06/14/2023 Encounter Details Date Type Department Care Team ([facility] st Contact Info) Description 06/14/2023 Telephone General Internal Medicine [facility] [address] [place] [address] Roberto Askew MD [address] [place] [address] Test Results Allergies Active Allergy Reactions Criticality Noted Date [...] day as needed. 0 Active nystatin (NYSTOP) 456645 UNIT/GM powderIndications:C utaneous candidiasis Apply topically to [...] (HCC),COPD, group D, by GOLD 2017 classification ([facility]) USE 2 PUFFS BY MOUTH EVERY 4 HOURS NEEDED SHORT OF BREATH 6.7 g 5 2 Active Magnesium Oxide 400 (241.3 Mg) MG Oral TabletIndications:C oronary artery disease involving [place] coronary artery of [place] heart without angina pectoris Take by mouth [...] hemoglobin A1c goal of less than 8.0% ([facility]) Use as directed. 1 Kit 0 3 Active Accu-Chek Guide In Vitro Strip (Glucose Blood)Indications:T ype 2 diabetes mellitus with hemoglobin A1c goal of less than 8.0% ([facility]) Use to check sugars 3 times a day 100 Strip 1 3 Active Accu-Chek Softclix LancetsIndications: Type 2 diabetes mellitus with hemoglobin A1c goal of less than 8.0% ([facility]) Use to check sugars 3 times a [...] MG Oral TabletIndications:C oronary artery disease involving [place] coronary artery of [place] heart without angina pectoris Take 1 Tablet by mouth in the morning. In the morning.. 90 Tablet 1 3 Active Metoprolol Succinate ER 50 MG Oral Tablet Extended Release 24 Hour (toPROL XL)Indications:Freddie nary artery disease involving [place] coronary artery of [place] heart without angina pectoris TAKE 1 & [...] hemorrhage 10/04/2020 Coronary artery disease invo lving [place] heart without angina pectoris 10/04/2020 COPD, group [...] Calculus of kidney 08/20/2015 8 Overview: right, [place] CT Vitamin D deficiency 01/31/2015 018 Body [...] mRNA, LNP-s, No Pre serve, 2-Dose Series ([employer]) 01/02/2021,12/05/2020 DTP Vaccine 07/19/2017,04/03/2014 Hepatitis B, 20+ [...] Miscellaneous Notes * Telephone Encounter - Roberto Askew MD [...] 9:10 AM EDT Laboratory Lab Mobile Phlebotomy [facility] [address] [place] [address] [facility] Draw [address] [place] [address] 07/16/2023 6:00 AM EDT Anticoagulation Pharmacy Call Center [address] [place] [address] [facility] [address] [place] [address] Health Maintenance Due Date Last Done Comments DISCUSS TOBACCO CESSATION (REFER TO SMARTSET #9080) 1970 HIV Screening 1985 Pneumococcal Vaccine: Pediatrics (0 to 5 Years) and At-Risk Patients (6 to 64 Years) (2 - PCV) 05/22/2010 05/22/2009 Cologuard 2015 Fecal Occult Blood Test 2015 Sigmoidoscopy 2015 *ADVANCE DIRECTIVE NOT ON FILE 02/03/2020 LUNG CANCER SCREENING - USE SMARTSET [id number] 2020 02/10/2019, 07/19/2017, 05/09/2017, Additional history exists [...] this encounter Medical Devices Implanted Type Area Hl7 Developer Device Identifier Shelf Expiration Date Model / Serial / Lot Tube Flex 3.0x2.5 [id number] - [id number] Implanted:Qty: 1 on 12/07/2014 by Juancarlos Trinidad MD at [facility] Left: Finger [employer] : ORTHOPAEDICS 11/18/2015 [id number] / / [id number] documented as of this encounter Advance Directives [...] the patient have Health Care Power of Merchandising Intern? No Healthcare Agents on File Name Relationship Healthcare Agent Relationship Communication Estrella Seth Other - (no specific identity) Health Care Power of Merchandising Intern Care Teams Floral Designer Relationship Specialty Start Date End Date Roberto Askew MD [address] [place] [address] PCP - General Internal Medicine 04/10/20 documented as of this encounter
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
--- OUTSIDE RECORDS SUMMARY | 2023-08-22 22:08 | External Medical Summary ---
Author Name Unknown Address Unknown Organization K0X:[facility] [place] [address] [place] [address] Laboratory Report Ordering Provider Test Date Status TULIO TRONCOSO 07/08/2023 10:35:26 Final Standing order for pt/inr. < br/>Please draw pt/inr every 1 to 4 weeks as requested
Results to [facility] Anticoagulation [facility]

Warfarin Therapy
INR: 2.0-3.0 conventional anticoagulation
INR: 2.5-3.5 high intensity anticoagulation Observation Date Value Abnormality Reference (Units ) Status PT 07/08/2023 10:35:26 41.5 Above high normal 11 .6-15.2 (seconds) Final INR 07/08/2023 10:35:26 4.3 Above high normal 0. 8-1.2 Final Performing Location [facility] [address] [place] [address]
--- OUTSIDE RECORDS SUMMARY | 2023-08-22 22:08 | External Medical Summary | Summary of Care ---
Author Name Unknown Organization [facility] Address [address] [place] [address] Phone [phone] Care Team Providers Care College Admissions Counselor Name Role Phone Roberto Askew MD Primary Care Provider + Reason for Visit * Reason Onset Date Comments Test Results 06/14/2023 Encounter Details Date Type Department Care Team ([facility] st Contact Info) Description 06/14/2023 Telephone General Internal Medicine [facility] [address] [place] [address] Roberto Askew MD [address] [place] [address] Test Results Allergies Active Allergy Reactions Criticality [...] as of this encounter (statuses as of 07/13/2023) Medications Medication Sig Dispensed Refills Start Date [...] day as needed. 0 Active nystatin (NYSTOP) 891275 UNIT/GM powderIndications:C utaneous candidiasis Apply topically to [...] (HCC),COPD, group D, by GOLD 2017 classification ([facility]) USE 2 PUFFS BY MOUTH EVERY 4 HOURS NEEDED SHORT OF BREATH 6.7 g 5 2 Active Magnesium Oxide 400 (241.3 Mg) MG Oral TabletIndications:C oronary artery disease involving [place] coronary artery of [place] heart without angina pectoris Take by mouth [...] of less than 8.0% ([facility]) Use as directed. 1 Kit 0 3 Active Accu-Chek Guide In Vitro Strip (Glucose Blood)Indications:T ype 2 diabetes mellitus with hemoglobin A1c goal of less than 8.0% ([facility]) Use to check sugars 3 times a day 100 Strip 1 3 Active Accu-Chek Softclix LancetsIndications: Type 2 diabetes mellitus with hemoglobin A1c goal of less than 8.0% ([facility]) Use to check sugars 3 [...] MG Oral TabletIndications:C oronary artery disease involving [place] coronary artery of [place] heart without angina pectoris Take 1 Tablet by mouth in the morning. In the morning.. 90 Tablet 1 3 Active Metoprolol Succinate ER 50 MG Oral Tablet Extended Release 24 Hour (toPROL XL)Indications:Freddie nary artery disease involving [place] coronary artery of [place] heart without angina pectoris TAKE 1 & [...] as of this encounter (statuses as of 07/13/2023) Active Problems Problem Noted Date Diagnosed Date [...] hemorrhage 10/04/2020 Coronary artery disease invo lving [place] heart without angina pectoris 10/04/2020 COPD, group [...] as of this encounter (statuses as of 07/13/2023) Resolved Problems Problem Noted Date Diagnosed Date [...] Calculus of kidney 08/20/2015 8 Overview: right, [place] CT Vitamin D deficiency 01/31/2015 018 Body [...] as of this encounter (statuses as of 07/13/2023) Immunizations Name Administration Dates Next Due COVID-19 mRNA, LNP-s, No Pre serve, 2-Dose Series ([employer]) 01/02/2021,12/05/2020 DTP Vaccine 07/19/2017,04/03/2014 Hepatitis B, 20+ [...] encounter Miscellaneous Notes * Telephone Encounter - Meredith Carroll LPN [...] 9:10 AM EDT Laboratory Lab Mobile Phlebotomy [facility] [address] [place] [address] [facility] Mobile Home Draw [address] [place] [address] 07/16/2023 6:00 AM EDT Anticoagulation Pharmacy Call Center [address] [place] [address] [facility] [address] [place] [address] Health Maintenance Due Date Last Done Comments DISCUSS TOBACCO CESSATION (REFER TO SMARTSET #3291) 1970 HIV Screening 1985 Pneumococcal Vaccine: Pediatrics (0 to 5 Years) and At-Risk Patients (6 to 64 Years) (2 - PCV) 05/22/2010 05/22/2009 Cologuard 2015 Fecal Occult Blood Test 2015 Sigmoidoscopy 2015 *ADVANCE DIRECTIVE NOT ON FILE 02/03/2020 LUNG CANCER SCREENING - USE SMARTSET [id number] 2020 02/10/2019, 07/19/2017, 05/09/2017, Additional history exists Zoster Vaccines (1 of 2) 2020 Hepatitis B (3 of 3 - 19+ 3-dose series) 10/11/2020 06/05/2020, 04/10/2020 Diabetic Foot Exam 12/13/2020 12/14/2019, 1 11/03/2014, 09/03/2014 Albumin/Creatinine Ratio 04/10/2021 04/10/2020 Depression Screening 05/01/2021 05/01/2020, 02/02/20 DIABETES-EYE EXAM 11/19/2021 11/19/2020, 04/10/2020 HbA1c 09/18/2022 [...] this encounter Medical Devices Implanted Type Area Architectural Drafting Instructor Device Identifier Shelf Expiration Date Model / Serial / Lot Tube Flex 3.0x2.5 [id number] - [id number] Implanted:Qty: 1 on 12/07/2014 by Juancarlos Trinidad MD at [facility] Left: Finger [employer] : ORTHOPAEDICS 11/18/2015 [id number] / / [id number] documented as of this encounter Advance Directives [...] the patient have Health Care Power of Manager Banquet? No Healthcare Agents on File Name Relationship Healthcare Agent Relationship Communication Estrella Seth Other - (no specific identity) Health Care Power of Manager Banquet Care Teams College Admissions Counselor Relationship Specialty Start Date End Date Roberto Askew MD [address] [place] [address] PCP - General Internal Medicine 04/10/20 documented as of this encounter
--- OUTSIDE RECORDS SUMMARY | 2023-08-22 22:08 | External Medical Summary | Summary of Care ---
Author Name Unknown Organization [facility] Address [address] [place] [address] Phone [phone] Care Team Providers Care Soup Person Name Role Phone Roberto Griffin MD Primary Care Provider + Reason for Visit * Reason Onset Date Comments eRx-Medication Refill Appointment 07/03/2023 Encounter Details Date Type Department Care Team Description 07/03/2023 Telephone General Internal Medicine [facility] [address] [place] [address] Roberto Griffin MD [address] [place] [address] eRx-Medication Refill; Appointment Allergies Active Allergy Reactions [...] as of this encounter (statuses as of 07/07/2023) Medications Medication Sig Dispensed Refills Start Date [...] day as needed. 0 Active nystatin (NYSTOP) 185587 UNIT/GM powderIndications:C utaneous candidiasis Apply topically to [...] :COPD, group C, by GOLD 2017 classification ([facility]),COPD, group D, by GOLD 2017 classification ([facility]) USE 2 PUFFS BY MOUTH EVERY 4 HOURS NEEDED SHORT OF BREATH 6.7 g 5 2 Active Magnesium Oxide 400 (241.3 Mg) MG Oral TabletIndications:C oronary artery disease involving [place] coronary artery of [place] heart without angina pectoris Take by mouth [...] A1c goal of less than 8.0% ([facility]) Use as directed. 1 Kit 0 3 Active Accu-Chek Guide In Vitro Strip (Glucose Blood)Indications:T ype 2 diabetes mellitus with hemoglobin A1c goal of less than 8.0% ([facility]) Use to check sugars 3 times a day 100 Strip 1 3 Active Accu-Chek Softclix LancetsIndications: Type 2 diabetes mellitus with hemoglobin A1c goal of less than 8.0% ([facility]) Use to check sugars 3 times a [...] MG Oral TabletIndications:C oronary artery disease involving [place] coronary artery of [place] heart without angina pectoris Take 1 Tablet by mouth in the morning. In the morning.. 90 Tablet 1 3 Active Metoprolol Succinate ER 50 MG Oral Tablet Extended Release 24 Hour (toPROL XL)Indications:Freddie nary artery disease involving [place] coronary artery of [place] heart without angina pectoris TAKE 1 & [...] as of this encounter (statuses as of 07/07/2023) Active Problems Problem Noted Date Bandemia 10/24/2021 [...] 01/24/2021 Opioid dependence, uncomplicated 021 History of [place] (myocardial infarction) Morbid obesity with BMI of 50.0-59.9, ad ult 10/04/2020 History of subdural hematoma 10/04/2020 Gastroesophageal reflux disease without esophagitis 10/04/2020 History of subarachnoid hemorrhage 10/04 Coronary artery disease involving [place] heart without angina pectoris 10/04/2020 COPD, group [...] as of this encounter (statuses as of 07/07/2023) Resolved Problems Problem Noted Date Resolved Date [...] Calculus of kidney 08/20/2015 02/01/2018 Overview: right, [place] CT Vitamin D deficiency 01/31/2015 02/01/2018 Body [...] as of this encounter (statuses as of 07/07/2023) Immunizations Name Administration Dates Next Due COVID-19 mRNA, LNP-s, No Pre serve, 2-Dose Series (Purveyour) 01/02/2021,12/05/2020 DTP Vaccine 07/19/2017,04/03/2014 Hepatitis B, 20+ [...] preferred pharmacy and medication before forwarding?yes Pharmacy: [facility]-[address] Pending Prescriptions: Disp Refills Gabapentin 800 [...] 08:05 AM * Telephone Encounter - Juliette [facility] - 07/04/2023 10:17 AM EDTPending Prescriptions: Disp Refills Gabapentin 800 MG Oral Tablet [Pharmacy Me*270 Ta*10 Sig: TAKE 1 TABLET BY MOUTH IN THE MORNING, 1 TABLET AT NOON AND 1 TABLET BEFORE BEDTIME. documented in this encounter Plan of Treatment Upcoming Encounters Date Type Specialty Care Team Description 07/08/2023 Laboratory [facility] [address] [place] [address] 07/09/2023 [facility] [address] [place] [address] Health Maintenance Due Date Last Done Comments DISCUSS TOBACCO CESSATION (REFER TO SMARTSET #3291) 1970 HIV Screening 1985 Pneumococcal Vaccine: Pediatrics (0 to 5 Years) and At-Risk Patients (6 to 64 Years) (2 - PCV) 05/22/2010 05/22/2009 Cologuard 2015 Fecal Occult Blood Test 2015 Sigmoidoscopy 2015 *ADVANCE DIRECTIVE NOT ON FILE 02/03/2020 LUNG CANCER SCREENING - USE SMARTSET [id number] 2020 02/10/2019, 07/19/2017, 05/09/2017, Additional history exists [...] this encounter Medical Devices Implanted Type Area Business Process Specialist Device Identifier Shelf Expiration Date Model / Serial / Lot Tube Flex 3.0x2.5 [id number] - [id number] Implanted:Qty: 1 on 12/07/2014 by Juancarlos Trinidad MD at [facility] Left: Finger LANDON : ORTHOPAEDICS 11/18/2015 [id number] / / [id number] documented as of this encounter Visit Diagnoses [...] the patient have Health Care Power of Disabilities Caregiver? No Healthcare Agents on File Name Relationship Healthcare Agent Relationship Communication Estrella Seth Other - (no specific identity) Health Care Power of Disabilities Caregiver Care Teams Soup Person Relationship Specialty Start Date End Date Roberto Griffin MD [address] [place] [id number] PCP - General Internal Medicine 04/10/20 documented as of this encounter
--- OUTSIDE RECORDS SUMMARY | 2023-08-22 22:08 | External Medical Summary | Summary of Care ---
Author Name Unknown Organization [facility] Address [address] [place] [address] Phone [phone] Care Team Providers Care Manager Technical Sales Name Role Phone Roberto Askew MD Primary Care Provider + Reason for Visit * Reason Comments Dosage Adjustment Via Phone (anticoag Cl inic) Encounter Details Date Type Department Care Team Description 06/15/2023 Anticoagulation Pharmacy Call Center [phone] [place] [address] [facility] [address] [facility] [place] [address] History of pulmonary embolism* Allergies Active Allergy Reactions Severity Noted Date [...] as of this encounter (statuses as of 06/15/2023) Medications Medication Sig Dispensed Refills Start Date [...] day as needed. 0 Active nystatin (NYSTOP) 758335 UNIT/GM powderIndications:Cut aneous candidiasis Apply topically to [...] OPD, group C, by GOLD 2017 classification ([facility]),COPD, group D, by GOLD 2017 classification ([facility]) USE 2 PUFFS BY MOUTH EVERY 4 HOURS NEEDED SHORT OF BREATH 6.7 g 5 11/24/2021 Active Magnesium Oxide 400 (241.3 Mg) MG Oral TabletIndications:Cor onary artery disease involving [place] coronary artery of [place] heart without angina pectoris Take by mouth [...] less than 8.0% ([facility]) Use to check sugars 3 times a day 100 Strip 1 10/30/2022 Active Accu-Chek Softclix LancetsIndications:Ty pe 2 diabetes mellitus with hemoglobin A1c goal of less than 8.0% ([facility]) Use to check sugars 3 times a day 100 Each 3 10/30/2022 Active Ondansetron HCl 4 MG Oral Tablet (Zofran)Indications:N ausea TAKE 1 TABLET BY MOUTH EVERY 8 HOURS NEEDED NAUSEA 20 Tablet 1 12/03/2022 Active Gabapentin 800 MG Oral Tablet (Neurontin)Indication s:DM type 2 with diabetic peripheral neuropathy (HCC) Take 1 Tablet by mouth in the morning and 1 Tablet at noon and 1 Tablet before bedtime. 270 Tablet 1 12/10/2022 Active Spironolactone 25 MG Oral Tablet (Aldactone) [...] 12/25/2022 Active Benzonatate 100 MG Oral Capsule (Tesdidier Rios) TAKEONE CAPSULE BY MOUTH EVERY MORNING, ONE AT NOON, AND ONE EVERY EVENING, FOR COUGH. 20 Capsule 0 12/30/2022 Active Isosorbide Dinitrate 30 MG Oral TabletIndications:Cor onary artery disease involving [place] coronary artery of [place] heart without angina pectoris Take 1 Tablet by mouth in the morning. In the morning.. 90 Tablet 1 04/05/2023 Active Metoprolol Succinate ER 50 MG Oral Tablet Extended Release 24 Hour (toPROL XL)Indications:Harman ry artery disease involving [place] coronary artery of [place] heart without angina pectoris TAKE 1 & [...] THE MORNING. 90 Capsule 1 06/14/2023 Active documented as of this encounter (statuses as of 06/15/2023) Active Problems Problem Noted Date Bandemia 10/24/2021 [...] 01/24/2021 Opioid dependence, uncomplicated 021 History of [place] (myocardial infarction) Morbid obesity with BMI of 50.0-59.9, ad ult 10/04/2020 History of subdural hematoma 10/04/2020 Gastroesophageal reflux disease without esophagitis 10/04/2020 History of subarachnoid hemorrhage 10/04 Coronary artery disease involving [place] heart without angina pectoris 10/04/2020 COPD, group [...] as of this encounter (statuses as of 06/15/2023) Resolved Problems Problem Noted Date Resolved Date [...] Morbid obesity with BMI of 45.0-49.9, adult 01/1810/04/2020 Body mass index (BMI) of 40.0 to [...] Calculus of kidney 08/20/2015 02/01/2018 Overview: right, [place] CT Vitamin D deficiency 01/31/2015 02/01/2018 Body [...] as of this encounter (statuses as of 06/15/2023) Immunizations Name Administration Dates Next Due COVID-19 mRNA, LNP-s, No Pre serve, 2-Dose Series ([employer]) 01/02/2021,12/05/2020 DTP Vaccine 07/19/2017,04/03/2014 Hepatitis B, 20+ [...] as of this encounter Progress Notes * ARTEM Walls Tech - 06/15/2023 11:38 AM EDT Contacts Type Contact Phone/Fax 06/15/2023 11:37 AM EDT Phone (Outgoing) Stanton Milner (Self) [phone] (H) Left Message Subjective PT/INR results, Coumadin dose instructions, and next PT/INR date communicated as noted by Pharmacist: Yes Michael Estevez health analyst 06/15/2023, 11:38 AM * Keren Sanchez [facility] - 06/15/2023 8:07 AM EDT Coumadin Clinic (region specific) Objective Current Warfarin Dose As of 06/15/2023 Warfarin maintenance plan: 2.5 mg (5 mg x 0.5) every Tue, Micki; 5 mg (5 mg x 1) all other days INR Result As of 06/15/2023 INR goal: 2.0-3.0 INR used for dosin.7 (06/14/2023) Assessment & Plan Warfarin Plan As of 06/15/2023 Full warfarin instructions: 2.5 mg every Tue, Micki; 5 mg all other days No change documented: Keren Sanchez RPh Next INR check: 06/29/2023 Repeat PT/INR in 2 week(s) Weekly dose: not changed Additional Dosing Information: Description [facility] to contact patient with dose instructions as noted. Keren Sanchez RPh 06/15/2023, 8:09 AM documented in this encounter Plan of Treatment Upcoming Encounters Date Type Specialty Care Team Description 06/22/2023 Laboratory Laboratory Processing [facility], [facility] Mobile Home Draw [address] [place] [address] 06/23[facility]20[facility] [address] [place] [address] 06/29/2023 Laboratory Laboratory Processing [facility] Home Draw [address] [place] [address] Health Maintenance Due Date Last Done Comments DISCUSS TOBACCO CESSATION (REFER TO SMARTSET #3291) 1970 HIV Screening 1985 Pneumococcal Vaccine: Pediatrics (0 to 5 Years) and At-Risk Patients (6 to 64 Years) (2 - PCV) 05/22/2010 05/22/2009 Cologuard 2015 Fecal Occult Blood Test 2015 Sigmoidoscopy 2015 *ADVANCE DIRECTIVE NOT ON FILE 02/03/2020 LUNG CANCER SCREENING - USE SMARTSET [id number] 2020 02/10/2019, 07/19/2017, 05/09/2017, Additional history exists Zoster Vaccines (1 of 2) 2020 Hepatitis B (3 of 3 - 19+ 3-dose series) 10/11/2020 06/05/2020, 04/10/2020 Diabetic Foot Exam 12/13/2020 12/14/2019, 1 11/03/2014, 09/03/2014 COVID-19 Vaccine (3 - Pfizer series) 02/27/2021 01/02/2021, 12/05/2020 Albumin/Creatinine Ratio 04/10/2021 04/10/2020 Depression Screening 05/01/2021 05/01/2020, 02/02/20 DIABETES-EYE EXAM 11/19/2021 11/19/2020, 04/10/2020 HbA1c 09/18/2022 03/19/2022, 11/19, 06/05/2021, Additional history exists Influenza Vaccine (FLU shot) (#1) 2023 08/26/2013 O2 ASSESSMENT COMPLETED IN PAST YEAR FOR COPD 08/10/2023 08/10/2022 Colonoscopy 12/09/2023 12/08/2013, 07/26/2013 Colorectal Cancer Screening 12/09/2023 GFR 06/14/2024 06/14/2023, 05/21, 12/17/2022, Additional history exists DTaP,Tdap,and Td Vaccines (4 - Td or Tdap) 06/08/2029 06/08/2019, 07/19/2017, 04/03/2014 Alpha-1 Antitrypsin Completed 12/16/2021 Hepatitis C Screening Completed 12/16/2021 , 12/16/2021, 12/16/2021 GARDASIL-HPV IMMUNIZATION SERIES Aged Out No longer eligible based on patient's age to complete this topic MENINGOCOCCAL (MENACTRA/MENVEO) Aged Out No longer eligible based on patient's age to complete this topic documented as of this encounter Medical Devices Implanted Type Area Service Mechanic Device Identifier Shelf Expiration Date Model / Serial / Lot Tube Flex 3.0x2.5 [id number] - [id number] Implanted:Qty: 1 on 12/07/2014 by uJancarlos Trinidad MD at [facility] Left: Finger LANDON : ORTHOPAEDICS 11/18/2015 [id number] / / [id number] documented as of this encounter Visit Diagnoses [...] the patient have Health Care Power of Features Editor? No Healthcare Agents on File Name Relationship Healthcare Agent Relationship Communication Estrella Seth Other - (no specific identity) Health Care Power of Features Editor Care Teams Manager Technical Sales Relationship Specialty Start Date End Date Roberto Askew MD [address] [place] [address], [place] [address] PCP - General Internal Medicine 04/10/20 documented as of this encounter
--- OUTSIDE RECORDS SUMMARY | 2023-08-22 22:08 | External Medical Summary ---
Author Name Unknown Address Unknown Organization [id number] [address] [place] [id number] Laboratory Report Ordering Provider Test Date Status ABATULIO 06/22/2023 08:38:00 Final Standing order for pt/inr. < br/>Please draw pt/inr every 1 to 4 weeks as requested
Results to [facility]

Warfarin Therapy
INR: 2.0-3.0 conventional anticoagulation
INR: 2.5-3.5 high intensity anticoagulation Observation Date Value Abnormality Reference (Units ) Status PT 06/22/2023 08:38:00 39.8 Above high normal 11 .6-15.2 (seconds) Final INR 06/22/2023 08:38:00 4.1 Above high normal 0. 8-1.2 Final Performing Location [facility] [address] [place] [address]
--- OUTSIDE RECORDS SUMMARY | 2023-08-22 22:08 | External Medical Summary ---
Author Name Unknown Address Unknown Organization [id number] [address] [place] [id number] Laboratory Report Ordering Provider Test Date Status ABATULIO 06/29/2023 09:45:00 Final Standing order for pt/inr. < br/>Please draw pt/inr every 1 to 4 weeks as requested
Results to [facility]

Warfarin Therapy
INR: 2.0-3.0 conventional anticoagulation
INR: 2.5-3.5 high intensity anticoagulation Observation Date Value Abnormality Reference (Units ) Status PT 06/29/2023 09:45:00 42.2 Above high normal 11 .6-15.2 (seconds) Final INR 06/29/2023 09:45:00 4.4 Above high normal 0. 8-1.2 Final Performing Location [facility] [address] [place] [id number]
--- OUTSIDE RECORDS SUMMARY | 2023-08-22 22:08 | External Medical Summary | Summary of Care ---
Author Name Unknown Organization [facility] Address [address] [place] [address] Phone [phone] Care Team Providers Care Sales And Service Engineer Name Role Phone Roberto Askew MD Primary Care Provider + Reason for Visit * Reason Comments Dosage Adjustment Via Phone (anticoag Cl inic) Encounter Details Date Type Department Care Team Description 06/29/2023 Anticoagulation Pharmacy Call Center [phone] [place] [address] [facility] [address] [place] [address] History of pulmonary embolism* Allergies Active Allergy [...] as of this encounter (statuses as of 06/29/2023) Medications Medication Sig Dispensed Refills Start Date [...] day as needed. 0 Active nystatin (NYSTOP) 782021 UNIT/GM powderIndications:Cut aneous candidiasis Apply topically to [...] OPD, group C, by GOLD 2017 classification ([facility]),COPD, group D, by GOLD 2017 classification ([facility]) USE 2 PUFFS BY MOUTH EVERY 4 HOURS NEEDED SHORT OF BREATH 6.7 g 5 11/24/2021 Active Magnesium Oxide 400 (241.3 Mg) MG Oral TabletIndications:Cor onary artery disease involving [place] coronary artery of [place] heart without angina pectoris Take by [...] than 8.0% ([facility]) Use as directed. 1 Kit 0 10/30/2022 Active Accu-Chek Guide In Vitro Strip (Glucose Blood)Indications:Typ e 2 diabetes mellitus with hemoglobin A1c goal of less than 8.0% ([facility]) Use to check sugars 3 times a day 100 Strip 1 10/30/2022 Active Accu-Chek Softclix LancetsIndications:Ty pe 2 diabetes mellitus with hemoglobin A1c goal of less than 8.0% ([facility]) Use to check sugars 3 times a [...] MG Oral TabletIndications:Cor onary artery disease involving [place] coronary artery of [place] heart without angina pectoris Take 1 Tablet by mouth in the morning. In the morning.. 90 Tablet 1 04/05/2023 Active Metoprolol Succinate ER 50 MG Oral Tablet Extended Release 24 Hour (toPROL XL)Indications:Harman ry artery disease involving [place] coronary artery of [place] heart without angina pectoris TAKE 1 [...] as of this encounter (statuses as of 06/29/2023) Active Problems Problem Noted Date Bandemia 10/24/2021 [...] 01/24/2021 Opioid dependence, uncomplicated 021 History of [place] (myocardial infarction) Morbid obesity with BMI of 50.0-59.9, ad ult 10/04/2020 History of subdural hematoma 10/04/2020 Gastroesophageal reflux disease without esophagitis 10/04/2020 History of subarachnoid hemorrhage 10/04 Coronary artery disease involving [place] heart without angina pectoris 10/04/2020 COPD, [...] as of this encounter (statuses as of 06/29/2023) Resolved Problems Problem Noted Date Resolved Date [...] Calculus of kidney 08/20/2015 02/01/2018 Overview: right, [place] CT Vitamin D deficiency 01/31/2015 02/01/2018 Body [...] as of this encounter (statuses as of 06/29/2023) Immunizations Name Administration Dates Next Due COVID-19 mRNA, LNP-s, No Pre serve, 2-Dose Series ([employer]) 01/02/2021,12/05/2020 DTP Vaccine 07/19/2017,04/03/2014 Hepatitis B, 20+ [...] of this encounter Progress Notes * ARTEM Lira Tech - 06/29/2023 2:25 PM EDT Contacts Type Contact Phone/Fax 06/29/2023 02:22 PM EDT Phone (Outgoing) Stanton Milner (Self) [phone] (H) Spoke to Patient Subjective Patient Findings Negatives: Signs/symptoms of bleeding, Change in health, Change in activity, Upcoming invasive procedure, Missed doses, Extra doses, Change in medications, Change in diet/appetite, Bruising Advised patient to contact Anticoagulation Clinic if any unusual bruising or bleeding, recent illness, changes in medication, or questions/concerns. PT/INR results, Coumadin dose instructions, and next PT/INR date communicated as noted by Pharmacist: Yes ARTEM LIRA Tech 06/29/2023, 2:25 PM * Keren Sanchez RPh - 06/29/2023 1:28 PM EDT Images from the original note were not included. Coumadin Clinic (region specific) Objective Current Warfarin Dose As of 06/29/2023 Warfarin maintenance plan: 2.5 mg (5 mg x 0.5) every Tue, Micki; 5 mg (5 mg x 1) all other days INR Result As of 06/29/2023 INR goal: 2.0-3.0 INR used for dosin.4 (06/29/2023) Assessment & Plan Warfarin Plan As of 06/29/2023 Full warfarin instructions: 06/29: Hold; 06/30: Hold; Otherwise 2.5 mg every Tue, Micki, Sat; 5 mg all other days Next INR check: 07/08/2023 Repeat PT/INR in 1.5 week(s) Thur check due to changed dose Weekly dose: decreased Additional Dosing Information: Description [facility] - pt prefers [facility] at this time Tech to contact patient with dose instructions as noted. Keren Sanchez RPh 06/29/2023, 1:28 PM documented in this encounter Plan of Treatment Upcoming Encounters Date Type Specialty Care Team Description 07/08/2023 Laboratory Laboratory Processing [facility] Mobile Home Draw [address] [place] [address] Health Maintenance Due Date Last Done Comments DISCUSS TOBACCO CESSATION (REFER TO SMARTSET #8163) 1970 HIV Screening 1985 Pneumococcal Vaccine: Pediatrics (0 to 5 Years) and At-Risk Patients (6 to 64 Years) (2 - PCV) 05/22/2010 05/22/2009 Cologuard 2015 Fecal Occult Blood Test 2015 Sigmoidoscopy 2015 *ADVANCE DIRECTIVE NOT ON FILE 02/03/2020 LUNG CANCER SCREENING - USE SMARTSET [id number] 2020 02/10/2019, 07/19/2017, 05/09/2017, Additional history exists Zoster Vaccines (1 of 2) 2020 Hepatitis B (3 of 3 - 19+ 3-dose series) 10/11/2020 06/05/2020, 04/10/2020 Diabetic Foot Exam 12/13/2020 12/14/2019, 1 11/03/2014, 09/03/2014 Albumin/Creatinine Ratio 04/10/2021 04/10/2020 Depression Screening 05/01/2021 05/01/2020, 02/02/20 18 DIABETES-EYE EXAM 11/19/2021 11/19/2020, 04/10/2020 HbA1c 09/18/2022 03/19/2022, 0305/2022, [...] this encounter Medical Devices Implanted Type Area Physical Geographer Device Identifier Shelf Expiration Date Model / Serial / Lot Tube Flex 3.0x2.5 [id number] - [id number] Implanted:Qty: 1 on 12/07/2014 by Juancarlos Trinidad MD at [facility] Left: Finger [employer]ON : ORTHOPAEDICS 11/18/2015 [id number] / / [id number] documented as of this encounter Visit Diagnoses [...] the patient have Health Care Power of Assistant Merchandise Manager? No Healthcare Agents on File Name Relationship Healthcare Agent Relationship Communication Estrella Seth Other - (no specific identity) Health Care Power of Assistant Merchandise Manager Care Teams Sales And Service Engineer Relationship Specialty Start Date End Date Roberto Askew MD [address] [place] [address], [place] [address] PCP - General Internal Medicine 04/10/20 documented as of this encounter
--- OUTSIDE RECORDS SUMMARY | 2023-08-22 22:08 | External Medical Summary | Summary of Care ---
Author Name Unknown Organization [facility] Address [address] [place] [address] Phone [phone] Care Team Providers Care Furnace Clerk Name Role Phone Roberto Askew MD Primary Care Provider + Reason for Visit * Reason Onset Date Comments Test Results 06/14/2023 Encounter Details Date Type Department Care Team ([facility] st Contact Info) Description 06/14/2023 Telephone General Internal Medicine [facility] [address] [place] [address] Roberto Askew MD [address] [place] [address] Test Results Allergies Active Allergy Reactions Criticality [...] day as needed. 0 Active nystatin (NYSTOP) 561081 UNIT/GM powderIndications:C utaneous candidiasis Apply topically to [...] (HCC),COPD, group D, by GOLD 2017 classification ([facility]) USE 2 PUFFS BY MOUTH EVERY 4 HOURS NEEDED SHORT OF BREATH 6.7 g 5 2 Active Magnesium Oxide 400 (241.3 Mg) MG Oral TabletIndications:C oronary artery disease involving [place] coronary artery of [place] heart without angina pectoris Take by mouth [...] hemoglobin A1c goal of less than 8.0% ([facility]) Use as directed. 1 Kit 0 3 Active Accu-Chek Guide In Vitro Strip (Glucose Blood)Indications:T ype 2 diabetes mellitus with hemoglobin A1c goal of less than 8.0% ([facility]) Use to check sugars 3 times a day 100 Strip 1 3 Active Accu-Chek Softclix LancetsIndications: Type 2 diabetes mellitus with hemoglobin A1c goal of less than 8.0% ([facility]) Use to check sugars 3 times [...] MG Oral TabletIndications:C oronary artery disease involving [place] coronary artery of [place] heart without angina pectoris Take 1 Tablet by mouth in the morning. In the morning.. 90 Tablet 1 3 Active Metoprolol Succinate ER 50 MG Oral Tablet Extended Release 24 Hour (toPROL XL)Indications:Freddie nary artery disease involving [place] coronary artery of [place] heart without angina pectoris TAKE 1 & [...] 01/24/2021 Opioid dependence, uncomplicated 01/22/2021 History of [place] (myocardial infarction) 01/22/2021 Morbid obesity with BMI of 50.0-59.9, adult 09/20 History of subdural hematoma 10/04/2020 Gastroesophageal reflux disease without esophagi tis 10/04/2020 History of subarachnoid hemorrhage 10/04/2020 Coronary artery disease invo lving [place] heart without angina pectoris 10/04/2020 COPD, group [...] Calculus of kidney 08/20/2015 8 Overview: right, [place] CT Vitamin D deficiency 01/31/2015 018 Body [...] mRNA, LNP-s, No Pre serve, 2-Dose Series (Guang Lian Shi Dai) 01/02/2021,12/05/2020 DTP Vaccine 07/19/2017,04/03/2014 Hepatitis B, 20+ [...] 9:10 AM EDT Laboratory [place] [facility] [place] [address] [place] [address] [facility] [place], [facility] Mobile Home Draw [address] [place] [address] 07/16/2023 6:00 AM EDT Anticoagulation Pharmacy Call Center [address] [place] [address] [facility] [address] [place] [address] Health Maintenance Due Date Last Done Comments DISCUSS TOBACCO CESSATION (REFER TO SMARTSET #3376) 1970 HIV Screening 1985 Pneumococcal Vaccine: Pediatrics (0 to 5 Years) and At-Risk Patients (6 to 64 Years) (2 - PCV) 05/22/2010 05/22/2009 Cologuard 2015 Fecal Occult Blood Test 2015 Sigmoidoscopy 2015 *ADVANCE DIRECTIVE NOT ON FILE 02/03/2020 LUNG CANCER SCREENING - USE SMARTSET 59307 2020 02/10/2019, 07/19/2017, 05/09/2017, Additional history exists [...] this encounter Medical Devices Implanted Type Area Financial Operations Analyst Device Identifier Shelf Expiration Date Model / Serial / Lot Tube Flex 3.0x2.5 [id number] - [id number] Implanted:Qty: 1 on 12/07/2014 by Juancarlos Trinidad MD at [facility] Left: Finger LANDON : ORTHOPAEDICS 11/18/2015 [id number] / / [id number] documented as of this encounter Advance Directives [...] the patient have Health Care Power of Seasonal Recruiter? No Healthcare Agents on File Name Relationship Healthcare Agent Relationship Communication Estrella Seth Other - (no specific identity) Health Care Power of Seasonal Recruiter Care Teams Furnace Clerk Relationship Specialty Start Date End Date Roberto Askew MD [address] [place] [address] PCP - General Internal Medicine 04/10/20 documented as of this encounter
--- OUTSIDE RECORDS SUMMARY | 2023-08-22 22:08 | External Medical Summary | Summary of Care ---
Author Name Unknown Organization [facility] Address [address] [place] [address] Phone [phone] Care Team Providers Care Safety And Health Consultant Name Role Phone Roberto Askew MD Primary Care Provider + Reason for Visit * Reason Comments Dosage Adjustment Via Phone (anticoag Cl inic) Encounter Details Date Type Department Care Team Description 07/09/2023 Anticoagulation Pharmacy Call Center [phone] [place] [address] [facility] [address] [place] [address] History of pulmonary embolism* Allergies Active Allergy [...] day as needed. 0 Active nystatin (NYSTOP) 814590 UNIT/GM powderIndications:Cut aneous candidiasis Apply topically to [...] group C, by GOLD 2017 classification ([facility]),COPD, group D, by GOLD 2017 classification ([facility]) USE 2 PUFFS BY MOUTH EVERY 4 HOURS NEEDED SHORT OF BREATH 6.7 g 5 11/24/2021 Active Magnesium Oxide 400 (241.3 Mg) MG Oral TabletIndications:Cor onary artery disease involving [place] coronary artery of [place] heart without angina pectoris Take by mouth [...] A1c goal of less than 8.0% ([facility]) Use as directed. 1 Kit 0 10/30/2022 Active Accu-Chek Guide In Vitro Strip (Glucose Blood)Indications:Typ e 2 diabetes mellitus with hemoglobin A1c goal of less than 8.0% ([facility]) Use to check sugars 3 times a day 100 Strip 1 10/30/2022 Active Accu-Chek Softclix LancetsIndications:Ty pe 2 diabetes mellitus with hemoglobin A1c goal of less than 8.0% ([facility]) Use to check sugars 3 times [...] MG Oral TabletIndications:Cor onary artery disease involving [place] coronary artery of [place] heart without angina pectoris Take 1 Tablet by mouth in the morning. In the morning.. 90 Tablet 1 04/05/2023 Active Metoprolol Succinate ER 50 MG Oral Tablet Extended Release 24 Hour (toPROL XL)Indications:Harman ry artery disease involving [place] coronary artery of [place] heart without angina pectoris TAKE 1 & [...] 01/24/2021 Opioid dependence, uncomplicated 021 History of [place] (myocardial infarction) Morbid obesity with BMI of 50.0-59.9, ad ult 10/04/2020 History of subdural hematoma 10/04/2020 Gastroesophageal reflux disease without esophagitis 10/04/2020 History of subarachnoid hemorrhage 10/04 Coronary artery disease involving [place] heart without angina pectoris 10/04/2020 COPD, group [...] Calculus of kidney 08/20/2015 02/01/2018 Overview: right, [place] CT Vitamin D deficiency 01/31/2015 02/01/2018 Body [...] mRNA, LNP-s, No Pre serve, 2-Dose Series ([employer]) 01/02/2021,12/05/2020 DTP Vaccine 07/19/2017,04/03/2014 Hepatitis B, [...] of this encounter Progress Notes * ARTEM Whitfield Tech - 07/09/2023 10:50 AM EDT Contacts Type Contact Phone/Fax 07/09/2023 10:48 AM EDT Phone (Outgoing) Stanton Milner (Self) [phone] (H) Left Message Subjective Advised patient to contact Anticoagulation Clinic if any unusual bruising or bleeding, recent illness, changes in medication, or questions/concerns. PT/INR results, Coumadin dose instructions, and next PT/INR date communicated as noted by Pharmacist: Yes ERIKA BO head animal keeper 07/09/2023, 10:50 AM * Keren Sanchez RP - 07/09/2023 8:19 AM EDT Images from the original note were not included. Coumadin Clinic (region specific) Objective Current Warfarin Dose As of 07/09/2023 Warfarin maintenance plan: 2.5 mg (5 mg x 0.5) every Tue, Micki, Sat; 5 mg (5 mg x 1) all other days INR Result As of 07/09/2023 INR goal: 2.0-3.0 INR used for dosin.3 (07/08/2023) Assessment & Plan Warfarin Plan As of 07/09/2023 Full warfarin instructions: 07/09: Hold; 07/10: Hold; Otherwise 5 mg every Mon, Wed, Fri; 2.5 mg all other days Next INR check: 07/15/2023 Repeat PT/INR in 1 week(s) Weekly dose: decreased Additional Dosing Information: Description [facility]) - pt prefers Tues [facility] at this time Tech to contact patient with dose instructions as noted. Keren Sanchez RPh 07/09/2023, 8:19 AM documented in this encounter Plan of Treatment Upcoming Encounters Date Type Specialty Care Team Description 07/15/2023 Laboratory Laboratory Processing [facility] [place] Mobile Home Draw [address] [place] [address] 07/16/2023 Anticoagulation Pharmacy [facility] [address] [place] [address] Health Maintenance Due Date Last Done Comments DISCUSS TOBACCO CESSATION (REFER TO SMARTSET #0060) 1970 HIV Screening 1985 Pneumococcal Vaccine: Pediatrics (0 to 5 Years) and At-Risk Patients (6 to 64 Years) (2 - PCV) 05/22/2010 05/22/2009 Cologuard 2015 Fecal Occult Blood Test 2015 Sigmoidoscopy 2015 *ADVANCE DIRECTIVE NOT ON FILE 02/03/2020 LUNG CANCER SCREENING - USE SMARTSET 09863 2020 02/10/2019, 07/19/2017, 05/09/2017, Additional history exists Zoster Vaccines (1 of 2) 2020 Hepatitis B (3 of 3 - 19+ 3-dose series) 10/11/2020 06/05/2020, 04/10/2020 Diabetic Foot Exam 12/13/2020 12/14/2019, 1 11/03/2014, 09/03/2014 Albumin/Creatinine Ratio 04/10/2021 04/10/2020 Depression Screening 05/01/2021 05/01/2020, 02/02/20 18 DIABETES-EYE EXAM 11/19/2021 11/19/2020, 04/10/2020 HbA1c 09/18/2022 03/19/2022, 0305/2022, 06/05/2021, Additional history exists COVID-19 Vaccine ( [...] this encounter Medical Devices Implanted Type Area Repair Service Clerk Device Identifier Shelf Expiration Date Model / Serial / Lot Tube Flex 3.0x2.5 [id number] - [id number] Implanted:Qty: 1 on 12/07/2014 [place] [facility] [place] [facility] [place] Finger [employer]ON : ORTHOPAEDICS 11/18/2015 [id number] / / [id number] documented as of this encounter Visit Diagnoses [...] the patient have Health Care Power of Public Health Teacher? No Healthcare Agents on File Name Relationship Healthcare Agent Relationship Communication Estrella Seth Other - (no specific identity) Health Care Power of Public Health Teacher Care Teams Safety And Health Consultant Relationship Specialty Start Date End Date Roberto Askew MD [address] [place] [address] PCP - General Internal Medicine 04/10/20 documented as of this encounter
--- OUTSIDE RECORDS SUMMARY | 2023-08-22 22:08 | External Medical Summary | Summary of Care ---
Author Name Unknown Organization [facility] Address [address] [place] [address] Phone [phone] Care Team Providers Care Contact Center Engineer Name Role Phone Roberto Askew MD Primary Care Provider + Reason for Visit * Reason Comments Dosage Adjustment Via Phone (anticoag Cl inic) Encounter Details Date Type Department Care Team Description 06/22/2023 Anticoagulation Pharmacy Call Center [address] [place] [address] [facility] [address] [facility] [address] History of pulmonary embolism* Allergies Active Allergy [...] as of this encounter (statuses as of 06/22/2023) Medications Medication Sig Dispensed Refills Start Date [...] day as needed. 0 Active nystatin (NYSTOP) 039945 UNIT/GM powderIndications:Cut aneous candidiasis Apply topically to [...] C, by GOLD 2017 classification ([facility]),COPD, group D, by GOLD 2017 classification ([facility]) USE 2 PUFFS BY MOUTH EVERY 4 HOURS NEEDED SHORT OF BREATH 6.7 g 5 11/24/2021 Active Magnesium Oxide 400 (241.3 Mg) MG Oral TabletIndications:Cor onary artery disease involving [place] coronary artery of [place] heart without angina pectoris Take by mouth [...] goal of less than 8.0% ([facility]) Use as directed. 1 Kit 0 10/30/2022 Active Accu-Chek Guide In Vitro Strip (Glucose Blood)Indications:Typ e 2 diabetes mellitus with hemoglobin A1c goal of less than 8.0% ([facility]) Use to check sugars 3 times a day 100 Strip 1 10/30/2022 Active Accu-Chek Softclix LancetsIndications:Ty pe 2 diabetes mellitus with hemoglobin A1c goal of less than 8.0% ([facility]) Use to check sugars 3 times [...] MG Oral TabletIndications:Cor onary artery disease involving [place] coronary artery of [place] heart without angina pectoris Take 1 Tablet by mouth in the morning. In the morning.. 90 Tablet 1 04/05/2023 Active Metoprolol Succinate ER 50 MG Oral Tablet Extended Release 24 Hour (toPROL XL)Indications:Harman ry artery disease involving [place] coronary artery of [place] heart without angina pectoris TAKE 1 & [...] as of this encounter (statuses as of 06/22/2023) Active Problems Problem Noted Date Bandemia 10/24/2021 [...] 01/24/2021 Opioid dependence, uncomplicated 021 History of [place] (myocardial infarction) Morbid obesity with BMI of 50.0-59.9, ad ult 10/04/2020 History of subdural hematoma 10/04/2020 Gastroesophageal reflux disease without esophagitis 10/04/2020 History of subarachnoid hemorrhage 10/04 Coronary artery disease involving [place] heart without angina pectoris 10/04/2020 COPD, group [...] as of this encounter (statuses as of 06/22/2023) Resolved Problems Problem Noted Date Resolved Date [...] Calculus of kidney 08/20/2015 02/01/2018 Overview: right, [place] CT Vitamin D deficiency 01/31/2015 02/01/2018 Body [...] as of this encounter (statuses as of 06/22/2023) Immunizations Name Administration Dates Next Due COVID-19 mRNA, LNP-s, No Pre serve, 2-Dose Series ([place]) 01/02/2021,12/05/2020 DTP Vaccine 07/19/2017,04/03/2014 Hepatitis B, 20+ [...] of this encounter Progress Notes * Michael Estevez inventory technician - 06/22/2023 3:44 PM EDT Contacts Type Contact Phone/Fax 06/22/2023 03:42 PM EDT Phone (Outgoing) Stanton Milner (Self) [phone] (H) Left Message Subjective PT/INR results, Coumadin dose instructions, and next PT/INR date communicated as noted by Pharmacist: Yes Michael Estevez inventory technician 06/22/2023, 3:44 PM * Lin Mcmanus RPh - 06/22/2023 3:40 PM EDT Images from the original note were not included. Coumadin Clinic (region specific) Objective Current Warfarin Dose As of 06/22/2023 Warfarin maintenance plan: 2.5 mg (5 mg x 0.5) every Tue, Micki; 5 mg (5 mg x 1) all other days INR Result As of 06/22/2023 INR goal: 2.0-3.0 INR used for dosin.1 (06/22/2023) Assessment & Plan Warfarin Plan As of 06/22/2023 Full warfarin instructions: 06/22: Hold; 06/23: Hold; Otherwise 2.5 mg every Tue, Micki; 5 mg all otherdays Next INR check: 06/29/2023 Repeat PT/INR in 1 week(s) Weekly dose: not changed Additional Dosing Information: Description [facility]) - pt prefers Tues [facility] at this time Tech to contact patient with dose instructions as noted. Lin Mcmanus RPh 06/22/2023, 3:41 PM documented in this encounter Plan of Treatment Upcoming Encounters Date Type Specialty Care Team Description 06/29/2023 Laboratory Laboratory [place] [facility] [place] [facility] Mobile Home Draw [address] [place] [address] Health Maintenance Due Date Last Done Comments DISCUSS TOBACCO CESSATION (REFER TO SMARTSET #6100) 1970 HIV Screening 1985 Pneumococcal Vaccine: Pediatrics (0 to 5 Years) and At-Risk Patients (6 to 64 Years) (2 - PCV) 05/22/2010 05/22/2009 Cologuard 2015 Fecal Occult Blood Test 2015 Sigmoidoscopy 2015 *ADVANCE DIRECTIVE NOT ON FILE 02/03/2020 LUNG CANCER SCREENING - USE SMARTSET 95446 2020 02/10/2019, 07/19/2017, 05/09/2017, Additional history exists [...] this encounter Medical Devices Implanted Type Area Lime Boiler Device Identifier Shelf Expiration Date Model / Serial / Lot Tube Flex 3.0x2.5 [id number] - [id number] Implanted:Qty: 1 on 12/07/2014 by Juancarlos Trinidad MD at [facility] Left: Finger [employer]ON : ORTHOPAEDICS 11/18/2015 [id number] / / [id number] documented as of this encounter Visit Diagnoses [...] the patient have Health Care Power of Claim Technician? No Healthcare Agents on File Name Relationship Healthcare Agent Relationship Communication Estrella Seth Other - (no specific identity) Health Care Power of Claim Technician Care Teams Contact Center Engineer Relationship Specialty Start Date End Date Roberto Askew MD [address] [place] [id number] PCP - General Internal Medicine 04/10/20 documented as of this encounter
--- OUTSIDE RECORDS SUMMARY | 2023-08-22 22:09 | External Medical Summary ---
Author Name Unknown Address Unknown Organization [facility] [address] [place] [address] Laboratory Report Ordering Provider Test Date Status [place] 06/14/2023 07:59:00 Final Observation Date Value Abnormality Reference (Units ) Status BUN 06/14/2023 07:59:00 8 6-20 (mg/dL) Final Creatinine 06/14/2023 07:59:00 0.9 0.6-1.2 (mg/dL) Final Glomerular filtration rate/1.73 sq M.predicted [Volume Rate/Area] in Serum, Plasma or Blood by Creatinine-based formula (CKD-EPI) 06/14/2023 07:59:00 >90 >=60 (mL/min) Final eGFR is calculated based on the CKD-EPI 2020 equation SODIUM 06/14/2023 07:59:00 140 135-146 (m mol/L) Final Potassium 06/14/2023 07:59:00 3.8 3.5-5.1 (m mol/L) Final Cl 06/14/2023 07:59:00 97 Below low normal 98- 107 (mmol/L) Final CO2 06/14/2023 07:59:00 32 22-32 (mmo l/L) Final Anion gap 06/14/2023 07:59:00 11 7-15 (mmol /L) Final Glucose 06/14/2023 07:59:00 188 Above high normal 70 -120 (mg/dL) Final Calcium 06/14/2023 07:59:00 10.2 8.4-10.2 ( mg/dL) Final Performing Location [facility] [address] [place] [address]
--- OUTSIDE RECORDS SUMMARY | 2023-08-22 22:09 | External Medical Summary | Summary of Care ---
Author Name Unknown Organization [facility] Address [address] [place] [address] Phone [phone] Care Team Providers Care Rn Case Manager Hospice Name Role Phone Roberto Askew MD Primary Care Provider + Encounter Details Date Type Department Care Team Description 04/07/2023 Telephone General Internal Medicine [facility] 200 [facility] [place] [address] Roberto Askew MD [address] [place] [address] Allergies Active Allergy Reactions Severity Noted Date [...] as of this encounter (statuses as of 06/11/2023) Medications Medication Sig Dispensed Refills Start Date [...] day as needed. 0 Active nystatin (NYSTOP) 032670 UNIT/GM powderIndications:C utaneous candidiasis Apply topically to [...] :COPD, group C, by GOLD 2017 classification ([facility]),COPD, group D, by GOLD 2017 classification ([facility]) USE 2 PUFFS BY MOUTH EVERY 4 HOURS NEEDED SHORT OF BREATH 6.7 g 5 11/25/19 22 Active Magnesium Oxide 400 (241.3 Mg) MG Oral TabletIndications:C oronary artery disease involving hydaburg coronary artery of hydab[place] heart without angina pectoris Take by mouth [...] hemoglobin A1c goal of less than 8.0% ([facility]) Use as directed. 1 Kit 0 10/30/19 23 Active Accu-Chek Guide In Vitro Strip (Glucose Blood)Indications:T ype 2 diabetes mellitus with hemoglobin A1c goal of less than 8.0% ([facility]) Use to check sugars 3 times a day 100 Strip 1 10/30/19 23 Active Accu-Chek Softclix LancetsIndications: Type 2 diabetes mellitus with hemoglobin A1c goal of less than 8.0% ([facility]) Use to check sugars 3 times a day 100 Each 3 10/30/19 23 Active DULoxetine HCl 60 MG Oral Capsule Delayed Release Particles (Cymbalta)Indicatio ns:DM type 2 with diabetic peripheral neuropathy (HCC),Chronic bilateral low back pain without sciatica Take 1 Capsule by mouth in the morning. 90 Capsule 1 12/04/19 23 Active Ondansetron HCl 4 MG Oral Tablet (Zofran)Indications :Nausea TAKE 1 TABLET BY MOUTH EVERY 8 HOURS NEEDED NAUSEA 20 Tablet 1 12/04/19 23 Active Gabapentin 800 MG Oral Tablet (Neurontin)Indicati ons:DM type 2 with diabetic peripheral neuropathy (HCC) Take 1 Tablet by mouth in the morning and 1 Tablet at noon and 1 Tablet before bedtime. 270 Tablet 1 12/11/19 23 Active Spironolactone 25 MG Oral Tablet [...] as needed for Cough. 120 mL 0 04/07/20 23 Active Benzonatate 100 MG Oral Capsule (Tessalon Perllavern) TAKEONE CAPSULE BY MOUTH EVERY MORNING, ONE AT NOON, AND ONE EVERY EVENING, FOR COUGH. 20 Capsule 0 12/31/19 23 Active Isosorbide Dinitrate 30 MG Oral TabletIndications:C oronary artery disease involving hydaburg coronary artery of hydaburg heart without angina pectoris Take 1 Tablet by mouth in the morning. In the morning.. 90 Tablet 1 04/05/20 23 Active Metoprolol Succinate ER 50 MG Oral Tablet Extended Release 24 Hour (toPROL XL)Indications:Freddie nary artery disease involving hydaburg coronary artery of hydaburg heart without angina pectoris TAKE 1 & 1/2 TABLETS by mouth 2 TIMES A DAY 270 Tablet 1 04/05/20 23 Active Folic Acid 1 MG Oral Tablet Take by mouth 1 Tablet in the morning. 90 Tablet 2 06/15/20 22 023 Discontinued(Re fill) Cyclobenzaprine HCl 10 MG Oral Tablet (Flexeril)Indicatio ns:Chronic pain syndrome TAKE ONE TABLET BY MOUTH 2 TIMES A DAY NEEDED FOR MUSCLE SPASMS 60 Tablet 5 12/02/19 23 023 Discontinued Furosemide 40 MG Oral Tablet (Lasix) Take 1 Tablet by mouth in the morning and 1 Tablet before bedtime. 180 Tablet 2 12/04/19 23 023 Discontinued(Nh dication List Clean Up) metOLazone 2.5 MG Oral Tablet (Zaroxolyn) Take 1 Tablet by mouth once a day on Wednesday, Wednesday, and Wednesday only. 28 Tablet 3 12/05/19 23 023 Discontinued Omeprazole 20 MG Oral Capsule Delayed Release (PriLOSEC) TAKE ONE CAPSULE BY MOUTH 1 HOUR BEFORE THE 1ST MEAL OF THE DAY 90 Capsule 1 12/05/19 23 023 Discontinued(Re fill) Potassium Chloride Terra [...] in the morning. Follow taper instructions from [facility]. 0 12/26/19 23 023 Discontinued(Nh dication List Clean Up) Tamsulosin HCl 0.4 MG Oral Capsule (Flomax) Take 2 Capsules by mouth in the morning. 60 Capsule 1 04/07/20 23 023 Discontinued(Re fill) Atorvastatin Calcium 80 MG Oral Tablet (Lipitor) Take 1 Tablet by mouth in the morning. To take in the afternoon.. 30 Tablet 1 04/07/20 23 023 Discontinued(Re fill) Warfarin Sodium 5 MG Oral Tablet (Coumadin)Indicatio ns:History of pulmonary embolism TAKE 1/2 TO 1 TABLET EVERY DAY DIRECTED BY [facility]. 90 Tablet 3 04/05/20 23 023 Discontinued documented as of this encounter (statuses as of 06/11/2023) Active Problems Problem Noted Date Bandemia 10/24/2021 [...] 01/24/2021 Opioid dependence, uncomplicated 021 History of [place] (myocardial infarction) Morbid obesity with BMI of 50.0-59.9, ad ult 10/04/2020 History of subdural hematoma 10/04/2020 Gastroesophageal reflux disease without esophagitis 10/04/2020 History of subarachnoid hemorrhage 10/04 Coronary artery disease involving hydaburg heart without angina pectoris 10/04/2020 COPD, group [...] as of this encounter (statuses as of 06/11/2023) Resolved Problems Problem Noted Date Resolved Date [...] Morbid obesity with BMI of 40.0-44.9, adult /03/201706/24/2017 Overview: Per Obesity protocol #1 Cavitary lung [...] Calculus of kidney 08/20/2015 02/01/2018 Overview: right, [place] CT Vitamin D deficiency 01/31/2015 02/01/2018 Body [...] as of this encounter (statuses as of 06/11/2023) Immunizations Name Administration Dates Next Due COVID-19 mRNA, LNP-s, No Pre serve, 2-Dose Series ([employer]) 01/02/2021,12/05/2020 DTP Vaccine 07/19/2017,04/03/2014 Hepatitis B, 20+ [...] of 01/17/2020 documented as of this encounter Plan of Treatment Upcoming Encounters Date Type Specialty Care Team Description 06/14/2023 Laboratory Laboratory Processing [facility], [facility] Mobile Home Draw [address] [place] [address] 06/22/2023 Laboratory Laboratory Processing [facility], [facility] Mobile Home Draw [address] [place] [address] 06/23/2023 [facility] [address] [place] [address] Health Maintenance Due Date Last Done Comments DISCUSS TOBACCO CESSATION (REFER TO SMARTSET #329) 1970 HIV Screening 1985 Pneumococcal Vaccine: Pediatrics (0 to 5 Years) and At-Risk Patients (6 to 64 Years) (2 - PCV) 05/22/2010 05/22/2009 Cologuard 2015 Fecal Occult Blood Test 2015 Sigmoidoscopy 2015 *ADVANCE DIRECTIVE NOT ON FILE 02/03/2020 LUNG CANCER SCREENING - USE SMARTSET [id number] 2020 02/10/2019, 07/19/2017, 05/09/2017, Additional history exists [...] 09/18/2022 03/19/2022, 03/05/2022, 06/05/2021, Additional history exists Influenza Vaccine (FLU shot) (#1) 2023 08/26/2013 O2 ASSESSMENT COMPLETED IN PAST YEAR FOR COPD 08/10/2023 08/10/2022 Colonoscopy 12/09/2023 12/08/2013, 07/26/2013 Colorectal Cancer Screening 12/09/2023 GFR 06/08/2024 06/08/2023, 11/20, 08/05/2022, Additional history exists DTaP,Tdap,and Td Vaccines (4 [...] this encounter Medical Devices Implanted Type Area Washer Hand Device Identifier Shelf Expiration Date Model / Serial / Lot Tube Flex 3.0x2.5 [id number] - [id number] Implanted:Qty: 1 on 12/07/2014 by Juancarlos Trinidad MD at [facility] Left: Finger [employer]ANDON : ORTHOPAEDICS 11/18/2015 [id number] / / [id number] documented as of this encounter Advance Directives [...] the patient have Health Care Power of Computational Geneticist? No Healthcare Agents on File Name Relationship Healthcare Agent Relationship Communication Estrella Seth Other - (no specific identity) Health Care Power of Computational Geneticist Care Teams Rn Case Manager Hospice Relationship Specialty Start Date End Date Roberto Askew MD [address] [place] [address], [place] [address] PCP - General Internal Medicine 04/10/20 documented as of this encounter
--- OUTSIDE RECORDS SUMMARY | 2023-08-22 22:09 | External Medical Summary | Summary of Care ---
Author Name Unknown Organization [facility] Address [address] [place] [address] Phone [phone] Care Team Providers Care Baker Pastry Name Role Phone Roberto Askew MD Primary Care Provider + Reason for Visit * Reason Onset Date Comments Test Results 06/09/2023 Encounter Details Date Type Department Care Team Description 06/09/2023 Telephone General Internal Medicine [facility] 200 [place] [address] Roberto Askew MD [address] [place] [address] Test Results Allergies Active Allergy Reactions Severity Noted Date [...] as of this encounter (statuses as of 06/09/2023) Medications Medication Sig Dispensed Refills Start Date [...] day as needed. 0 Active nystatin (NYSTOP) 351389 UNIT/GM powderIndications:Cut aneous candidiasis Apply topically to [...] OPD, group C, by GOLD 2017 classification ([facility]),COPD, group D, by GOLD 2017 classification ([facility]) USE 2 PUFFS BY MOUTH EVERY 4 HOURS NEEDED SHORT OF BREATH 6.7 g 5 11/24/2021 Active Magnesium Oxide 400 (241.3 Mg) MG Oral TabletIndications:Cor onary artery disease involving jackson coronary artery of jackson heart without angina pectoris Take by mouth [...] a day 100 Each 3 10/30/2022 Active DULoxetine HCl 60 MG Oral Capsule Delayed Release Particles (Cymbalta)Indications :DM type 2 with diabetic peripheral neuropathy (HCC),Chronic bilateral low back pain without sciatica Take 1 Capsule by mouth in the morning. 90 Capsule 1 12/03/2022 Active Ondansetron HCl 4 MG Oral Tablet [...] 12/25/2022 Active Benzonatate 100 MG Oral Capsule (Tessaldelfino Perllavern) TAKEONE CAPSULE BY MOUTH EVERY MORNING, ONE AT NOON, AND ONE EVERY EVENING, FOR COUGH. 20 Capsule 0 12/30/2022 Active Isosorbide Dinitrate 30 MG Oral TabletIndications:Cor onary artery disease involving jackson coronary artery of jackson heart without angina pectoris Take 1 Tablet by mouth in the morning. In the morning.. 90 Tablet 1 04/05/2023 Active Metoprolol Succinate ER 50 MG Oral Tablet Extended Release 24 Hour (toPROL XL)Indications:Harman ry artery disease involving jackson coronary artery of jackson heart without angina pectoris TAKE 1 & [...] MUSCLE SPASM(S) 60 Tablet 5 05/28/2023 Active documented as of this encounter (statuses as of 06/09/2023) Active Problems Problem Noted Date Bandemia 10/24/2021 [...] 01/24/2021 Opioid dependence, uncomplicated 021 History of [place] (myocardial infarction) Morbid obesity with BMI of 50.0-59.9, ad ult 10/04/2020 History of subdural hematoma 10/04/2020 Gastroesophageal reflux disease without esophagitis 10/04/2020 History of subarachnoid hemorrhage 10/04 Coronary artery disease involving jackson heart without angina pectoris 10/04/2020 COPD, group [...] as of this encounter (statuses as of 06/09/2023) Resolved Problems Problem Noted Date Resolved Date [...] Calculus of kidney 08/20/2015 02/01/2018 Overview: right, [place] CT Vitamin D deficiency 01/31/2015 02/01/2018 Body [...] as of this encounter (statuses as of 06/09/2023) Immunizations Name Administration Dates Next Due COVID-19 mRNA, LNP-s, No Pre serve, 2-Dose Series ([employer]) 01/02/2021,12/05/2020 DTP Vaccine 07/19/2017,04/03/2014 Hepatitis B, 20+ [...] Telephone Encounter - Roberto Askew MD - 06/09/2023 9:28 AM EDT Form signed, I will not do prednisone w/o a visit given he has both copd/heart failure and can't tell w/o visit what causing issues * Telephone Encounter - Alexa Fink CMA - 06/09/2023 9:04 AM EDT Patient aware and verbalized understanding, patient states he will schedule an appt. Scheduling please assist He states he is needing more prednisone due to breathing not improving. Patient states he has been laying in bed pretty much since d/c Asked for orders to be sent to mobile lab * Telephone Encounter - Alexa Fink CMA - 06/09/2023 9:01 AM EDT ----- Message from Roberto Askew MD sent at 06/09/2023 8:31 AM EDT ----- 1. Sodium low as is potassium, repeat bmp 2 days to follow may need med adjustment if continued low. He needs to schedule hospital follow up, this is very important. Sugar is >300, make sure he isfollowing diet and doing accu checks. He can come to any lab for blood draw 2. No anemia, but wbc slightly up which could be from if he took steroids recently, will recheck 2 days. documented in this encounter Plan of Treatment [...] 02/03/2020 LUNG CANCER SCREENING - USE SMARTSET 01134 2020 02/10/2019, 07/19/2017, 05/09/2017, Additional history exists [...] this encounter Medical Devices Implanted Type Area Surtass Analyst Device Identifier Shelf Expiration Date Model / Serial / Lot Tube Flex 3.0x2.5 [id number] - [id number] Implanted:Qty: 1 on 12/07/2014 by Juancarlos Trinidad MD at [facility] Left: Finger [employer]ON : ORTHOPAEDICS 11/18/2015 [id number] / / [id number] documented as of this encounter Advance Directives [...] the patient have Health Care Power of Hoof And Shoe Inspector? No Healthcare Agents on File Name Relationship Healthcare Agent Relationship Communication Estrella Seth Other - (no specific identity) Health Care Power of Hoof And Shoe Inspector Care Teams Baker Pastry Relationship Specialty Start Date End Date Roberto Askew MD [address] [place] [address] PCP - General Internal Medicine 04/10/20 documented as of this encounter
--- OUTSIDE RECORDS SUMMARY | 2023-08-22 22:09 | External Medical Summary ---
Author Name Unknown Address Unknown Organization [id number][facility] [place] [address] [address] [facility] [address] [address] Laboratory Report Ordering Provider Test Date Status [place] 06/08/2023 08:27:00 Final Observation Date Value Abnormality Reference (Units ) Status WBC, Total 06/08/2023 08:27:00 16.58 Above high normal 4.00-10.80 (K/uL) Final RBC 06/08/2023 08:27:00 5.85 4.50-5.25 (M/uL) Final Hemoglobin 06/08/2023 08:27:00 14.9 14.0-16.8 (g/dL) Final HCT 06/08/2023 08:27:00 47.8 40.0-48.4 (%) Final MCV 06/08/2023 08:27:00 81.7 82.0-99.5 (fL) Final MCH 06/08/2023 08:27:00 25.5 27.0-34.0 (pg) Final MCHC 06/08/2023 08:27:00 31.2 32.0-36.0 (g/dL) Final RDW 06/08/2023 08:27:00 20.2 11.5-15.5 (%) Final Platelets 06/08/2023 08:27:00 293 140-400 (K/uL) Final MPV 06/08/2023 08:27:00 10.9 6.6-11.1 (fL) Final Nucleated erythrocytes/100 leukocytes [Ratio] in Blood by Automated count 06/08/2023 08:27:00 0 <=0 (/100 WBCs) Final Performing Location [facility] - [address] [facility] [address]
--- OUTSIDE RECORDS SUMMARY | 2023-08-22 22:09 | External Medical Summary | Summary of Care ---
Author Name Unknown Organization [facility] Address [address] [place] [address] Phone [phone] Care Team Providers Care Event Specialist Product Demonstrator Name Role Phone Roberto Askew MD Primary Care Provider + Reason for Visit * Reason Onset Date Comments Test Results 06/14/2023 Encounter Details Date Type Department Care Team Description 06/14/2023 Telephone General Internal Medicine [facility] [address] [place] [address] Roberto Askew MD [address] [place] [address] Test Results Allergies Active Allergy Reactions Severity [...] as of this encounter (statuses as of 06/14/2023) Medications Medication Sig Dispensed Refills Start Date [...] day as needed. 0 Active nystatin (NYSTOP) 301994 UNIT/GM powderIndications:Cut aneous candidiasis Apply topically to [...] MG Oral TabletIndications:Cor onary artery disease involving ekuk coronary artery of ekuk heart without angina pectoris Take by mouth [...] MG Oral TabletIndications:Cor onary artery disease involving ekuk coronary artery of ekuk heart without angina pectoris Take 1 Tablet by mouth in the morning. In the morning.. 90 Tablet 1 04/05/2023 Active Metoprolol Succinate ER 50 MG Oral Tablet Extended Release 24 Hour (toPROL XL)Indications:Harman ry artery disease involving ekuk coronary artery of ekuk heart without angina pectoris TAKE 1 & [...] as of this encounter (statuses as of 06/14/2023) Active Problems Problem Noted Date Bandemia 10/24/2021 [...] 01/24/2021 Opioid dependence, uncomplicated 021 History of [place] (myocardial infarction) Morbid obesity with BMI of 50.0-59.9, ad ult 10/04/2020 History of subdural hematoma 10/04/2020 Gastroesophageal reflux disease without esophagitis 10/04/2020 History of subarachnoid hemorrhage 10/04 Coronary artery disease involving ekuk heart without angina pectoris 10/04/2020 COPD, group [...] as of this encounter (statuses as of 06/14/2023) Resolved Problems Problem Noted Date Resolved Date [...] Calculus of kidney 08/20/2015 02/01/2018 Overview: right, [place] CT Vitamin D deficiency 01/31/2015 02/01/2018 Body [...] as of this encounter (statuses as of 06/14/2023) Immunizations Name Administration Dates Next Due COVID-19 mRNA, LNP-s, No Pre serve, 2-Dose Series ([employer]) 01/02/2021,12/05/2020 DTP Vaccine 07/19/2017,04/03/2014 Hepatitis B, 20+ [...] encounter Miscellaneous Notes * Telephone Encounter - Johnny Moreno LPN [...] Encounters Date Type Specialty Care Team Description 06/[facility] [address] [facility] [place] [address] 06/22/2023 Laboratory Laboratory Processing [facility], [facility] Mobile Home Draw [address] [place] [address] 06/23/2023 [facility] [address] [facility] [place] [address] Health Maintenance Due Date Last Done Comments DISCUSS TOBACCO CESSATION (REFER TO SMARTSET #3291) 1970 HIV Screening 1985 Pneumococcal Vaccine: Pediatrics (0 to 5 Years) and At-Risk Patients (6 to 64 Years) (2 - PCV) 05/22/2010 05/22/2009 Cologuard 2015 Fecal Occult Blood Test 2015 Sigmoidoscopy 2015 *ADVANCE DIRECTIVE NOT ON FILE 02/03/2020 LUNG CANCER SCREENING - USE SMARTSET [id number] 2020 02/10/2019, 07/19/2017, 05/09/2017, Additional history exists Zoster Vaccines (1 of 2) 2020 Hepatitis B (3 of 3 - 19+ 3-dose series) 10/11/2020 06/05/2020, 04/10/2020 Diabetic Foot Exam 12/13/2020 12/14/2019, 1 11/03/2014, 09/03/2014 COVID-19 Vaccine (3 - Pfizer series) 02/27/2021 01/02/2021, 12/05/2020 Albumin/Creatinine Ratio 04/10/2021 04/10/2020 Depression Screening 05/01/2021 05/01/2020, 02/02/20 18 DIABETES-EYE EXAM 11/19/2021 11/19/2020, 04/10/2020 HbA1c 09/18/2022 03/19/2022, 03/2 05/2022, 06/05/2021, Additional history exists Influenza Vaccine (FLU [...] this encounter Medical Devices Implanted Type Area Green End Man Device Identifier Shelf Expiration Date Model / Serial / Lot Tube Flex 3.0x2.5 [id number] - [id number] Implanted:Qty: 1 on 12/07/2014 by Juancarlos Trinidad MD at [facility] Left: Finger [employer] : ORTHOPAEDICS 11/18/2015 [id number] / / [id number] documented as of this encounter Advance Directives [...] the patient have Health Care Power of Actuarial Analyst? No Healthcare Agents on File Name Relationship Healthcare Agent Relationship Communication Estrella Seth Other - (no specific identity) Health Care Power of Actuarial Analyst Care Teams Event Specialist Product Demonstrator Relationship Specialty Start Date End Date Roberto Askew MD [address] [place] [address], [place] [address] PCP - General Internal Medicine 04/10/20 documented as of this encounter
--- OUTSIDE RECORDS SUMMARY | 2023-08-22 22:09 | External Medical Summary ---
Author Name Unknown Address Unknown Organization [id number]:[facility] [place] [address] - [address] [facility] [address] Laboratory Report Ordering Provider Test Date Status DO SERGIOSHAHABGERI 06/14/2023 07:59:00 Final Observation Date Value Abnormality Reference (Units ) Status Albumin 06/14/2023 07:59:00 3.7 Below low normal 3.8-5.0 (g/dL) Final AST (Aspartate aminotransferase) 06/14/2023 07:59:00 26 10-50 (U/L) Final Alk Phos 06/14/2023 07:59:00 146 Above high normal 35-130 (U/L) Final ALT (Alanine aminotransferase) 06/14/2023 07:59:00 26 10-50 (U/L) Final Bilirubin, Total 06/14/2023 07:59:00 0.5 <=1.2 (mg/dL) Final Bilirubin, Direct 06/14/2023 07:59:00 <0.2 0.0-0.3 (mg/dL) Final Protein 06/14/2023 07:59:00 6.9 6.0-8.3 (g/dL) Final Performing Location [facility] [address] - [address] [place] [address]
--- OUTSIDE RECORDS SUMMARY | 2023-08-22 22:09 | External Medical Summary | Summary of Care ---
Author Name Unknown Organization [facility] Address [address] [place] [address] Phone [phone] Care Team Providers Care Radio News Anchor Name Role Phone Roberto Askew MD Primary Care Provider + Reason for Visit * Reason Onset Date Comments Test Results 06/09/2023 Encounter Details Date Type Department Care Team Description 06/09/2023 Telephone General Internal Medicine [facility] 200 [facility] [place] [address] Roberto Askew MD [address] [place] [address] Test Results Allergies Active Allergy Reactions Severity [...] day as needed. 0 Active nystatin (NYSTOP) 532782 UNIT/GM powderIndications:Cut aneous candidiasis Apply topically to [...] OPD, group C, by GOLD 2017 classification ([facility]),COPD, group D, by GOLD 2017 classification ([facility]) USE 2 PUFFS BY MOUTH EVERY 4 HOURS NEEDED SHORT OF BREATH 6.7 g 5 11/24/2021 Active Magnesium Oxide 400 (241.3 Mg) MG Oral TabletIndications:Cor onary artery disease involving bois forte coronary artery of bois forte heart without angina pectoris Take by mouth [...] hemoglobin A1c goal of less than 8.0% ([facility]) Use as directed. 1 Kit 0 10/30/2022 Active Accu-Chek Guide In Vitro Strip (Glucose Blood)Indications:Typ e 2 diabetes mellitus with hemoglobin A1c goal of less than 8.0% ([facility]) Use to check sugars 3 times a day 100 Strip 1 10/30/2022 Active Accu-Chek Softclix LancetsIndications:Ty pe 2 diabetes mellitus with hemoglobin A1c goal of less than 8.0% ([facility]) Use to check sugars 3 times [...] MG Oral TabletIndications:Cor onary artery disease involving bois forte coronary artery of bois forte heart without angina pectoris Take 1 Tablet by mouth in the morning. In the morning.. 90 Tablet 1 04/05/2023 Active Metoprolol Succinate ER 50 MG Oral Tablet Extended Release 24 Hour (toPROL XL)Indications:Harman ry artery disease involving bois forte coronary artery of bois forte heart without angina pectoris TAKE 1 & [...] 01/24/2021 Opioid dependence, uncomplicated 021 History of [place] (myocardial infarction) Morbid obesity with BMI of 50.0-59.9, ad ult 10/04/2020 History of subdural hematoma 10/04/2020 Gastroesophageal reflux disease without esophagitis 10/04/2020 History of subarachnoid hemorrhage 10/04 Coronary artery disease involving bois forte heart without angina pectoris 10/04/2020 COPD, group [...] Calculus of kidney 08/20/2015 02/01/2018 Overview: right, [place] CT Vitamin D deficiency 01/31/2015 02/01/2018 Body [...] mRNA, LNP-s, No Pre serve, 2-Dose Series ([employer]) 01/02/2021,12/05/2020 DTP Vaccine 07/19/2017,04/03/2014 Hepatitis B, 20+ [...] Encounter - Alexa Fink CMA - 06/09/2023 9:42 AM EDT Patient aware and verbalized understanding * Telephone Encounter - Roberto Asekw MD - 06/09/2023 9:28 AM EDT Form [...] Comments DISCUSS TOBACCO CESSATION (REFER TO SMARTSET #4570) 1970 HIV Screening 1985 Pneumococcal Vaccine: Pediatrics (0 to 5 Years) and At-Risk Patients (6 to 64 Years) (2 - PCV) 05/22/2010 05/22/2009 Cologuard 2015 Fecal Occult Blood Test 2015 Sigmoidoscopy 2015 *ADVANCE DIRECTIVE NOT ON FILE 02/03/2020 LUNG CANCER SCREENING - USE SMARTSET 48751 2020 02/10/2019, 07/19/2017, 05/09/2017, Additional history exists [...] this encounter Medical Devices Implanted Type Area Lace Machine Operator Device Identifier Shelf Expiration Date Model / Serial / Lot Tube Flex 3.0x2.5 [id number] - [id number] Implanted:Qty: 1 on 12/07/2014 by Juancarlos Trinidad MD at [facility] Left: Finger [employer]ANDON : ORTHOPAEDICS 11/18/2015 [id number] / / [id number] documented as of this encounter Advance Directives [...] the patient have Health Care Power of Loan Interviewer? No Healthcare Agents on File Name Relationship Healthcare Agent Relationship Communication Estrella Seth Other - (no specific identity) Health Care Power of Loan Interviewer Care Teams Radio News Anchor Relationship Specialty Start Date End Date Roberto Askew MD [address] [place] [id number] PCP - General Internal Medicine 04/10/20 documented as of this encounter
--- OUTSIDE RECORDS SUMMARY | 2023-08-22 22:09 | External Medical Summary | Summary of Care ---
Author Name Unknown Organization [facility] Address [address] [place] [address] Phone [phone] Care Team Providers Care Reed Or Wind Instrument Repairer Name Role Phone Roberto Griffin MD Primary Care Provider + Reason for Visit * Reason Comments eRx-Medication Refill Encounter Details Date Type Department Care Team Description 06/13/2023 Refill General Internal Medicine [facility] 200 [facility] [place] [address] Roberto Griffin MD [address] [place] [address] DM type 2 with diabetic peripheral neuropathy (HCC); Chronic bilateral low back pain without sciatica Allergies Active Allergy Reactions Severity Noted Date [...] day as needed. 0 Active nystatin (NYSTOP) 622514 UNIT/GM powderIndications:C utaneous candidiasis Apply topically to [...] :COPD, group C, by GOLD 2017 classification ([facility]),COPD, group D, by GOLD 2017 classification ([facility]) USE 2 PUFFS BY MOUTH EVERY 4 HOURS NEEDED SHORT OF BREATH 6.7 g 5 2 Active Magnesium Oxide 400 (241.3 Mg) MG Oral TabletIndications:C oronary artery disease involving mechoopda coronary artery of mechoopda heart without angina pectoris Take by mouth [...] NEEDED NAUSEA 20 Tablet 1 3 Active Gabapentin 800 MG Oral Tablet (Neurontin)Indicati ons:DM type 2 with diabetic peripheral neuropathy (HCC) Take 1 Tablet by mouth in the morning and 1 Tablet at noon and 1 Tablet before bedtime. 270 Tablet 1 3 Active Spironolactone 25 MG [...] MG Oral TabletIndications:C oronary artery disease involving mechoopda coronary artery of mechoopda heart without angina pectoris Take 1 Tablet by mouth in the morning. In the morning.. 90 Tablet 1 3 Active Metoprolol Succinate ER 50 MG Oral Tablet Extended Release 24 Hour (toPROL XL)Indications:Freddie nary artery disease involving mechoopda coronary artery of mechoopda heart without angina pectoris TAKE 1 & [...] THE MORNING. 90 Capsule 1 3 Active DULoxetine HCl 60 MG Oral Capsule Delayed Release Particles (Cymbalta)Indicatio ns:DM type 2 with diabetic peripheral neuropathy (HCC),Chronic bilateral low back pain without sciatica Take 1 Capsule by mouth in the morning. 90 Capsule 1 3 023 Discontinued documented as [...] 01/24/2021 Opioid dependence, uncomplicated 021 History of [place] (myocardial infarction) Morbid obesity with BMI of 50.0-59.9, ad ult 10/04/2020 History of subdural hematoma 10/04/2020 Gastroesophageal reflux disease without esophagitis 10/04/2020 History of subarachnoid hemorrhage 10/04 Coronary artery disease involving mechoopda heart without angina pectoris 10/04/2020 COPD, group [...] Calculus of kidney 08/20/2015 02/01/2018 Overview: right, [place] Vitamin D deficiency 01/31/2015 02/01/2018 Body [...] mRNA, LNP-s, No Pre serve, 2-Dose Series ([employer]) 01/02/2021,12/05/2020 DTP Vaccine 07/19/2017,04/03/2014 Hepatitis B, 20+ [...] encounter Miscellaneous Notes * Telephone Encounter - Yasemin Keller, [facility] - 06/14/2023 10:02 AM EDTSigned Prescriptions: Disp Refills DULoxetine HCl 60 MG Oral Capsule Delayed *90 Cap*1 Sig: TAKE 1 CAPSULE BY MOUTH IN THE MORNING.Authorizing Provider: ROBERTO GRIFFIN User: ZAHRA KELLER documented in this encounter Plan of Treatment Upcoming Encounters Date Type Specialty Care Team Description 06/[facility] [address] 06/22/2023 Laboratory Laboratory Processing [facility], [facility] Mobile Home Draw [address] [place] [address] 06/23/2023 [facility] [address] 60 [facility] [place] [address] Health Maintenance Due Date Last Done Comments DISCUSS TOBACCO CESSATION (REFER TO SMARTSET #3291) 1970 HIV Screening 1985 Pneumococcal Vaccine: Pediatrics (0 to 5 Years) and At-Risk Patients (6 to 64 Years) (2 - PCV) 05/22/2010 05/22/2009 Cologuard 2015 Fecal Occult Blood Test 2015 Sigmoidoscopy 2015 *ADVANCE DIRECTIVE NOT ON FILE 02/03/2020 LUNG CANCER SCREENING - USE SMARTSET 48309 2020 02/10/2019, 07/19/2017, 05/09/2017, Additional history exists [...] 07/26/2013 Colorectal Cancer Screening 12/09/2023 GFR 06/08/2024 06/14/2023, 05/21, 12/17/2022, Additional history exists DTaP,Tdap,and [...] encounter Medical Devices Implanted Type Area Transportation Analyst Device Identifier Shelf Expiration Date Model / Serial / Lot Tube Flex 3.0x2.5 [id number] - [id number] Implanted:Qty: 1 on 12/07/2014 by Juancarlos Trinidad MD at [facility] Left: Finger [employer]ANDON : ORTHOPAEDICS 11/18/2015 [id number] / / [id number] documented as of this encounter Visit Diagnoses Diagnosis DM type 2 with diabetic peripheral neuropathy (HCC) Type II or unspecified type diabetes mellitus with neurological manifestations, not stated as uncontrolled Chronic bilateral low back pain without sciatica documented in this encounter Advance Directives Latest [...] the patient have Health Care Power of Project Controller? No Healthcare Agents on File Name Relationship Healthcare Agent Relationship Communication Estrella Seth Other - (no specific identity) Health Care Power of Project Controller Care Teams Reed Or Wind Instrument Repairer Relationship Specialty Start Date End Date Roberto Griffin MD [address] [place] [id number] PCP - General Internal Medicine 04/10/20 documented as of this encounter
--- OUTSIDE RECORDS SUMMARY | 2023-08-22 22:09 | External Medical Summary ---
Author Name Unknown Address Unknown Organization K01:LAB[facility]ATORY [facility] - [address] [place] [address] Laboratory Report Ordering Provider Test Date Status ELIAS [place] 06/08/2023 08:27:00 Final Observation Date Value Abnormality Reference (Units ) Status Phosphate 06/08/2023 08:27:00 3.2 2.5-4.8 (m g/dL) Final Performing Location [facility] [address] [facility] [address]
--- OUTSIDE RECORDS SUMMARY | 2023-08-22 22:09 | External Medical Summary ---
Author Name Unknown Address Unknown Organization K0G:[facility] [place] [address] - [address] [facility] [address] Laboratory Report Ordering Provider Test Date Status ELIAS [place] 06/14/2023 07:59:00 Final Observation Date Value Abnormality Reference (Units ) Status SYNC LEUKOCYTES IN BLOOD BY AUTOMATED COUNT 06/14/2023 07:59:00 11.31 Above high normal 4.00-10.80 (K/uL) Final Segs 06/14/2023 07:59:00 50.6 40.0-75.0 (%) Final Lymphs % 06/14/2023 07:59:00 35.4 18.0-42.0 (%) Final Monos 06/14/2023 07:59:00 6.6 1.0-11.0 (%) Final Eosinophils 06/14/2023 07:59:00 7.0 Above high normal 0.0-6.0 (%) Final Basos 06/14/2023 07:59:00 0.4 0.0-2.0 (%) Final Absolute Segs 06/14/2023 07:59:00 5.72 1.80-7.70 (K/uL) Final Lymphs, absolute 06/14/2023 07:59:00 4.00 1.00-4.80 (K/ul) Final Monos, Abs 06/14/2023 07:59:00 0.75 0.00-1.10 (K/uL) Final Eos, Abs 06/14/2023 07:59:00 0.79 Above high normal 0.00-0.70 (K/uL) Final Basos, Abs 06/14/2023 07:59:00 0.05 0.00-0.20 (K/uL) Final Performing Location [facility] [address] - [address] [place] [address]
--- OUTSIDE RECORDS SUMMARY | 2023-08-22 22:09 | External Medical Summary ---
Author Name Unknown Address Unknown Organization K0G:[facility] [address] - [address] [place] [address] Laboratory Report Ordering Provider Test Date Status ABATULIO 06/14/2023 07:59:00 Final Standing order for pt/inr. < br/>Please draw pt/inr every 1 to 4 weeks as requested
Results to [facility]

Warfarin Therapy
INR: 2.0-3.0 conventional anticoagulation
INR: 2.5-3.5 high intensity anticoagulation Observation Date Value Abnormality Reference (Units ) Status PT 06/14/2023 07:59:00 28.9 Above high normal 11 .6-15.2 (seconds) Final INR 06/14/2023 07:59:00 2.7 Above high normal 0. 8-1.2 Final Performing Location [facility]ORY [facility] [address] - [address] [place] [address]
--- OUTSIDE RECORDS SUMMARY | 2023-08-22 22:09 | External Medical Summary | Summary of Care ---
Author Name Unknown Organization [facility] Address [address] [place] [address] Phone [phone] Care Team Providers Care Shank Burnisher Name Role Phone Roberto Askew MD Primary Care Provider + Reason for Visit * Reason Onset Date Comments Test Results 06/09/2023 Encounter Details Date Type Department Care Team Description 06/09/2023 Telephone General Internal Medicine [facility] 200 [place] [address] Roberto Askew MD 200 [place] [address] Test Results Allergies Active Allergy Reactions Severity [...] day as needed. 0 Active nystatin (NYSTOP) 850645 UNIT/GM powderIndications:Cut aneous candidiasis Apply topically to [...] group C, by GOLD 2017 classification ([facility]),COPD, group D, by GOLD 2017 classification ([facility]) USE 2 PUFFS BY MOUTH EVERY 4 HOURS NEEDED SHORT OF BREATH 6.7 g 5 11/24/2021 Active Magnesium Oxide 400 (241.3 Mg) MG Oral TabletIndications:Cor onary artery disease involving otoe-missouria coronary artery of otoe-missouria heart without angina pectoris Take by mouth [...] A1c goal of less than 8.0% ([facility]) Use as directed. 1 Kit 0 10/30/2022 Active Accu-Chek Guide In Vitro Strip (Glucose Blood)Indications:Typ e 2 diabetes mellitus with hemoglobin A1c goal of less than 8.0% ([facility]) Use to check sugars 3 times a day 100 Strip 1 10/30/2022 Active Accu-Chek Softclix LancetsIndications:Ty pe 2 diabetes mellitus with hemoglobin A1c goal of less than 8.0% ([facility]) Use to check sugars 3 times a [...] MG Oral TabletIndications:Cor onary artery disease involving otoe-missouria coronary artery of otoe-missouria heart without angina pectoris Take 1 Tablet by mouth in the morning. In the morning.. 90 Tablet 1 04/05/2023 Active Metoprolol Succinate ER 50 MG Oral Tablet Extended Release 24 Hour (toPROL XL)Indications:Harman ry artery disease involving otoe-missouria coronary artery of otoe-missouria heart without angina pectoris TAKE 1 & [...] 01/24/2021 Opioid dependence, uncomplicated 021 History of [place] (myocardial infarction) Morbid obesity with BMI of 50.0-59.9, ad ult 10/04/2020 History of subdural hematoma 10/04/2020 Gastroesophageal reflux disease without esophagitis 10/04/2020 History of subarachnoid hemorrhage 10/04 Coronary artery disease involving otoe-missouria heart without angina pectoris 10/04/2020 COPD, group [...] Calculus of kidney 08/20/2015 02/01/2018 Overview: right, [place] CT Vitamin D deficiency 01/31/2015 02/01/2018 Body [...] mRNA, LNP-s, No Pre serve, 2-Dose Series ([employer]) 01/02/2021,12/05/2020 DTP Vaccine 07/19/2017,04/03/2014 Hepatitis B, 20+ [...] Comments DISCUSS TOBACCO CESSATION (REFER TO SMARTSET #4081) 1970 HIV Screening 1985 Pneumococcal Vaccine: Pediatrics (0 to 5 Years) and At-Risk Patients (6 to 64 Years) (2 - PCV) 05/22/2010 05/22/2009 Cologuard 2015 Fecal Occult Blood Test 2015 Sigmoidoscopy 2015 *ADVANCE DIRECTIVE NOT ON FILE 02/03/2020 LUNG CANCER SCREENING - USE SMARTSET [id number] 2020 02/10/2019, 07/19/2017, 05/09/2017, Additional history exists [...] this encounter Medical Devices Implanted Type Area Director Hardware Device Identifier Shelf Expiration Date Model / Serial / Lot Tube Flex 3.0x2.5 [id number] - [id number] Implanted:Qty: 1 on 12/07/2014 by Juancarlos Trinidad MD at [facility] Left: Finger [employer]ANDON : ORTHOPAEDICS 11/18/2015 [id number] / / [id number] documented as of this encounter Advance Directives [...] the patient have Health Care Power of Mobile Phone Salesperson? No Healthcare Agents on File Name Relationship Healthcare Agent Relationship Communication Estrella Seth Other - (no specific identity) Health Care Power of Mobile Phone Salesperson Care Teams Shank Burnisher Relationship Specialty Start Date End Date Roberto Askew MD [address] [place] [id number] PCP - General Internal Medicine 04/10/20 documented as of this encounter
--- OUTSIDE RECORDS SUMMARY | 2023-08-22 22:09 | External Medical Summary | Summary of Care ---
Author Name Unknown Organization [facility] Address [address] [place] [address] Phone [phone] Care Team Providers Care Recreation Adviser Name Role Phone Roberto Askew MD Primary Care Provider + Reason for Visit * Reason Onset Date Comments Test Results 06/09/2023 Encounter Details Date Type Department Care Team Description 06/09/2023 Telephone General Internal Medicine [facility] 200 [place] [address] Roberto Askew MD [address] [place] [address] Test Results Allergies Active Allergy Reactions Severity [...] day as needed. 0 Active nystatin (NYSTOP) 266140 UNIT/GM powderIndications:Cut aneous candidiasis Apply topically to [...] OPD, group C, by GOLD 2017 classification ([facility]),COPD, group D, by GOLD 2017 classification ([facility]) USE 2 PUFFS BY MOUTH EVERY 4 HOURS NEEDED SHORT OF BREATH 6.7 g 5 11/24/2021 Active Magnesium Oxide 400 (241.3 Mg) MG Oral TabletIndications:Cor onary artery disease involving yavapai-apache coronary artery of [place]ap[place]-apache heart without angina pectoris Take by mouth [...] MG Oral TabletIndications:Cor onary artery disease involving yavapai-apache coronary artery of [place]apai-apache heart without angina pectoris Take 1 Tablet by mouth in the morning. In the morning.. 90 Tablet 1 04/05/2023 Active Metoprolol Succinate ER 50 MG Oral Tablet Extended Release 24 Hour (toPROL XL)Indications:Harman ry artery disease involving yavapai-apache coronary artery of [place]ap[place]-apache heart without angina pectoris TAKE 1 & [...] 01/24/2021 Opioid dependence, uncomplicated 021 History of [place] (myocardial infarction) Morbid obesity with BMI of 50.0-59.9, ad ult 10/04/2020 History of subdural hematoma 10/04/2020 Gastroesophageal reflux disease without esophagitis 10/04/2020 History of subarachnoid hemorrhage 10/04 Coronary artery disease involving yavapai-apache heart without angina pectoris 10/04/2020 COPD, group [...] Calculus of kidney 08/20/2015 02/01/2018 Overview: right, [place] CT Vitamin D deficiency 01/31/2015 02/01/2018 Body [...] mRNA, LNP-s, No Pre serve, 2-Dose Series ([employer]) 01/02/2021,12/05/2020 DTP Vaccine 07/19/2017,04/03/2014 Hepatitis B, [...] AM EDT Patient aware and verbalized understanding Form has been faxed * Telephone Encounter - Roberto Askew MD [...] Comments DISCUSS TOBACCO CESSATION (REFER TO SMARTSET #5545) 1970 HIV Screening 1985 Pneumococcal Vaccine: Pediatrics (0 to 5 Years) and At-Risk Patients (6 to 64 Years) (2 - PCV) 05/22/2010 05/22/2009 Cologuard 2015 Fecal Occult Blood Test 2015 Sigmoidoscopy 2015 *ADVANCE DIRECTIVE NOT ON FILE 02/03/2020 LUNG CANCER SCREENING - USE SMARTSET 62431 2020 02/10/2019, 07/19/2017, 05/09/2017, Additional history exists [...] this encounter Medical Devices Implanted Type Area Compliance Representative Dealer Device Identifier Shelf Expiration Date Model / Serial / Lot Tube Flex 3.0x2.5 [id number] - [id number] Implanted:Qty: 1 on 12/07/2014 by Juancarlos Trinidad MD at [facility] Left: Finger [employer] : ORTHOPAEDICS 11/18/2015 [id number] / / [id number] documented as of this encounter Advance Directives [...] the patient have Health Care Power of Plant And Equipment Worker? No Healthcare Agents on File Name Relationship Healthcare Agent Relationship Communication Estrella Seth Other - (no specific identity) Health Care Power of Plant And Equipment Worker Care Teams Recreation Adviser Relationship Specialty Start Date End Date Roberto Askew MD [address] [place] [address], [place] [address] PCP - General Internal Medicine 04/10/20 documented as of this encounter
--- OUTSIDE RECORDS SUMMARY | 2023-08-22 22:09 | External Medical Summary ---
Author Name Unknown Address Unknown Organization [facility] - [address] [place] [address] Laboratory Report Ordering Provider Test Date Status [place] 06/14/2023 07:59:00 Final Observation Date Value Abnormality Reference (Units ) Status WBC, Total 06/14/2023 07:59:00 11.31 Above high normal 4 .00-10.80 (K/uL) Final RBC 06/14/2023 07:59:00 5.73 4.50-5.25 (M/uL) Final Hemoglobin 06/14/2023 07:59:00 14.0 14.0-16.8 (g/dL) Final HCT 06/14/2023 07:59:00 45.4 40.0-48.4 (%) Final MCV 06/14/2023 07:59:00 79.2 82.0-99.5 (fL) Final MCH 06/14/2023 07:59:00 24.4 27.0-34.0 (pg) Final MCHC 06/14/2023 07:59:00 30.8 32.0-36.0 (g/dL) Final RDW 06/14/2023 07:59:00 20.8 11.5-15.5 (%) Final Platelets 06/14/2023 07:59:00 284 140-400 (K /uL) Final MPV 06/14/2023 07:59:00 11.1 6.6-11.1 ( fL) Final Performing Location LABORATORY [facility] [place] [address] - [address] [place] [address]
--- OUTSIDE RECORDS SUMMARY | 2023-08-22 22:09 | External Medical Summary | Summary of Care ---
Author Name Unknown Organization [facility] Address [address] [place] [address] Phone [phone] Care Team Providers Care Polymer Specialist Name Role Phone Roberto Askew MD Primary Care Provider + Reason for Visit * Reason Comments Dosage Adjustment Via Phone (anticoag Cl inic) Encounter Details Date Type Department Care Team Description 06/09/2023 Anticoagulation Pharmacy Call Center [phone] [place] [address] [facility] [address] History of pulmonary embolism* Allergies Active Allergy [...] day as needed. 0 Active nystatin (NYSTOP) 556328 UNIT/GM powderIndications:Cut aneous candidiasis Apply topically to [...] OPD, group C, by GOLD 2017 classification ([facility]),COPD, group D, by GOLD 2017 classification ([facility]) USE 2 PUFFS BY MOUTH EVERY 4 HOURS NEEDED SHORT OF BREATH 6.7 g 5 11/24/2021 Active Magnesium Oxide 400 (241.3 Mg) MG Oral TabletIndications:Cor onary artery disease involving [place] coronary artery of [...] hemoglobin A1c goal of less than 8.0% ([facility]) Use as directed. 1 Kit 0 10/30/2022 Active Accu-Chek Guide In Vitro Strip (Glucose Blood)Indications:Typ e 2 diabetes mellitus with hemoglobin A1c goal of less than 8.0% ([facility]) Use to check sugars 3 times a day 100 Strip 1 10/30/2022 Active Accu-Chek Softclix LancetsIndications:Ty pe 2 diabetes mellitus with hemoglobin A1c goal of less than 8.0% ([facility]) Use to check sugars 3 times [...] MG Oral TabletIndications:Cor onary artery disease involving [place] coronary artery of [place] heart without angina pectoris Take 1 Tablet by mouth in the morning. In the morning.. 90 Tablet 1 04/05/2023 Active Metoprolol Succinate ER 50 MG Oral Tablet Extended Release 24 Hour (toPROL XL)Indications:Harman ry artery disease involving [place] coronary artery of [...] subarachnoid hemorrhage 10/04 Coronary artery disease involving [place] heart without angina pectoris 10/04/2020 COPD, [...] Calculus of kidney 08/20/2015 02/01/2018 Overview: right, [place] CT Vitamin D deficiency 01/31/2015 02/01/2018 Body [...] mRNA, LNP-s, No Pre serve, 2-Dose Series ([employer]) 01/02/2021,12/05/2020 DTP Vaccine 07/19/2017,04/03/2014 Hepatitis B, 20+ [...] this encounter Progress Notes * ARTEM Walls - 06/09/2023 12:05 PM EDT Contacts Type Contact Phone/Fax 06/09/2023 12:00 PM EDT Phone (Outgoing) Stanton Milner (Self) [phone] (H) Subjective Patient Findings Negatives: Signs/symptoms of [...] as noted by Pharmacist: Yes ARTEM Walls 06/09/2023, 12:05 PM * Keren Sanchez RPh - 06/09/2023 9:10 AM EDT Coumadin Clinic (region specific) Objective Current Warfarin Dose As of 06/09/2023 Warfarin maintenance plan: 2.5 mg (5 mg x 0.5) every Tue, Micki; 5 mg (5 mg x 1) all other days INR Result As of 06/09/2023 INR goal: 2.0-3.0 INR used for dosin.0 (06/08/2023) Assessment & Plan Warfarin Plan As of 06/09/2023 Full warfarin instructions: 2.5 mg every Tue, Micki; 5 mg all other days No change documented: Keren Sanchez RPh Next INR check: 06/22/2023 Repeat PT/INR in 2 week(s) Weekly dose: not changed Additional Dosing Information: Description GML([facility]) - pt prefers [facility] at this time Tech to contact patient with dose instructions as noted. Keren Sanchez RPh 06/09/2023, 9:11 AM documented in this encounter Plan of Treatment Upcoming Encounters Date Type Specialty Care Team Description 06/23/2023 [facility] [address] [place] [address] Health Maintenance Due Date Last Done Comments DISCUSS TOBACCO CESSATION (REFER TO SMARTSET #3291) 1970 HIV Screening 1985 Pneumococcal Vaccine: Pediatrics (0 to 5 Years) and At-Risk Patients (6 to 64 Years) (2 - PCV) 05/22/2010 05/22/2009 Cologuard 2015 Fecal Occult Blood Test 2015 Sigmoidoscopy 2015 *ADVANCE DIRECTIVE NOT ON FILE 02/03/2020 LUNG CANCER SCREENING - USE SMARTSET [id number] 2020 02/10/2019, 07/19/2017, 05/09/2017, Additional history exists [...] this encounter Medical Devices Implanted Type Area Him Analyst Device Identifier Shelf Expiration Date Model / Serial / Lot Tube Flex 3.0x2.5 [id number] - [id number] Implanted:Qty: 1 on 12/07/2014 by Juancarlos Trinidad MD at [facility] Left: Finger [employer]ANDON : ORTHOPAEDICS 11/18/2015 [id number] / / [id number] documented as of this encounter Visit Diagnoses [...] the patient have Health Care Power of Production Metal Sprayer? No Healthcare Agents on File Name Relationship Healthcare Agent Relationship Communication Estrella Seth Other - (no specific identity) Health Care Power of Production Metal Sprayer Care Teams Polymer Specialist Relationship Specialty Start Date End Date Roberto Askew MD [address] [place] [address] PCP - General Internal Medicine 04/10/20 documented as of this encounter
--- OUTSIDE RECORDS SUMMARY | 2023-08-22 22:10 | External Medical Summary ---
Author Name Unknown Address Unknown Organization [id number]:LABORATORY [facility] [place] - [address] [facility] [address] Laboratory Report Ordering Provider Test Date Status ELIAS HILL 06/08/2023 08:27:00 Final Observation Date Value Abnormality Reference (Units ) Status SYNC LEUKOCYTES IN BLOOD BY AUTOMATED COUNT 06/08/2023 08:27:00 16.58 Above high normal 4.00-10.80 (K/uL) Final Segs 06/08/2023 08:27:00 70.1 40.0-75.0 (%) Final Lymphs % 06/08/2023 08:27:00 20.6 18.0-42.0 (%) Final Monos 06/08/2023 08:27:00 5.1 1.0-11.0 (%) Final Eosinophils 06/08/2023 08:27:00 3.3 0.0-6.0 (%) Final Basos 06/08/2023 08:27:00 0.4 0.0-2.0 (%) Final Immature Granulocyte, Percent 06/08/2023 08:27:00 0.5 0.0-2.0 (%) Final Absolute Segs 06/08/2023 08:27:00 11.62 Above high normal 1.80-7.70 (K/uL) Final Lymphs, absolute 06/08/2023 08:27:00 3.42 1.00-4.80 (K/ul) Final Monos, Abs 06/08/2023 08:27:00 0.84 0.00-1.10 (K/uL) Final Eos, Abs 06/08/2023 08:27:00 0.55 0.00-0.70 (K/uL) Final Basos, Abs 06/08/2023 08:27:00 0.07 0.00-0.20 (K/uL) Final Immature Granulocytes, Number 06/08/2023 08:27:00 0.08 0.00-0.20 (K/uL) Final Performing Location LABORATORY [facility] – [place] - [facility] [place] [address]
--- OUTSIDE RECORDS SUMMARY | 2023-08-22 22:10 | External Medical Summary | Summary of Care ---
Author Name Unknown Organization [facility] Address [address] [place] [address] Phone [phone] Care Team Providers Care Seo Intern Name Role Phone Roberto Askew MD Primary Care Provider + Reason for Visit * Reason Onset Date Comments Appointment 05/10/2023 Encounter Details Date Type Department Care Team Description 05/10/2023 [address], [facility] [address] [place] [address] [facility] [address] [place] [address] Appointment Allergies Active Allergy Reactions Severity Noted [...] as of this encounter (statuses as of 05/14/2023) Medications Medication Sig Dispensed Refills Start Date [...] 3 times a day . 0 04/19/20 Active hydrOXYzine HCl 25 MG tablet Take 25 mg by mouth 4 times a day as needed. 0 Active nystatin (NYSTOP) 345586 UNIT/GM powderIndications:C utaneous candidiasis Apply topically to [...] Sprays daily . 16 mL 1 11/21/19 Active Albuterol Sulfate HFA 108 (90 Base) MCG/ACT Inhalation Aerosol SolutionIndications :COPD, group C, by GOLD 2017 classification (HCC),COPD, group D, by GOLD 2017 classification ([facility]) USE 2 PUFFS BY MOUTH EVERY 4 HOURS NEEDED SHORT OF BREATH 6.7 g 5 11/25/19 Active Magnesium Oxide 400 (241.3 Mg) MG Oral TabletIndications:C oronary artery disease involving [place] coronary artery of [place] heart without angina pectoris Take by mouth 400 mg in the morning. 30 Tablet 11 12/11/19 Active Insulin Glargine 100 UNIT/ML Subcutaneous Solution Pen-injector (Lantus) Inject under the skin 50 Units before bedtime. 10 Each 5 03/27/20 Active Additional Information Patient not taking.Reported on 08/11/2022 NovoLOG FlexPen 100 UNIT/ML Subcutaneous Solution Pen-injector [...] of less than 8.0% ([facility]) Use as directed. 1 Kit 0 10/30/19 23 Active Accu-Chek Guide In Vitro Strip (Glucose Blood)Indications:T ype 2 diabetes mellitus with hemoglobin A1c goal of less than 8.0% ([facility]) Use to check sugars 3 times a day 100 Strip 1 10/30/19 23 Active Accu-Chek Softclix LancetsIndications: Type 2 diabetes mellitus with hemoglobin A1c goal of less than 8.0% ([facility]) Use to check sugars 3 times a day 100 Each 3 10/30/19 23 Active Cyclobenzaprine HCl 10 MG Oral Tablet (Flexeril)Indicatio ns:Chronic pain syndrome TAKE ONE TABLET BY MOUTH 2 TIMES A DAY NEEDED FOR MUSCLE SPASMS 60 Tablet 5 12/02/19 23 Active DULoxetine HCl 60 MG Oral [...] NAUSEA 20 Tablet 1 12/25/19 23 Active predniSONE 10 MG Oral Tablet (Deltasone) Take 1 Tablet by mouth in the morning. [facility] 0 12/26/19 23 Active guaiFENesin-Codeine 100-10 MG/5ML Oral Syrup [...] MG Oral TabletIndications:C oronary artery disease involving [place] coronary artery of [place] heart without angina pectoris Take 1 Tablet by mouth in the morning. In the morning.. 90 Tablet 1 04/05/20 23 Active Metoprolol Succinate ER 50 MG Oral Tablet Extended Release 24 Hour (toPROL XL)Indications:Freddie nary artery disease involving [place] coronary artery of [place] heart without angina pectoris TAKE 1 & 1/2 TABLETS by mouth 2 TIMES A DAY 270 Tablet 1 04/05/20 23 Active Folic Acid 1 MG Oral Tablet Take 1 Tablet by mouth in the morning. 90 Tablet 2 04/21/20 23 Active Omeprazole 20 MG Oral Capsule Delayed Release (PriLOSEC) TAKE ONE CAPSULE BY MOUTH 1 HOUR BEFORE THE 1ST MEAL OF THE DAY 90 Capsule 1 04/21/20 23 Active Tamsulosin HCl 0.4 MG Oral Capsule (Flomax) Take 2 Capsules by mouth in the morning. 60 Capsule 1 04/21/20 23 Active Famotidine 20 [...] BY COUMADIN CLINIC. 90 Tablet 3 04/23/20 Active metOLazone 2.5 MG Oral Tablet (Zaroxolyn) TAKE 1 TABLET ONE TIME DAILY ON WEDNESDAY, WEDNESDAY, AND WEDNESDAY ONLY. 39 Tablet 1 05/10/20 Active Atorvastatin Calcium 80 MG Oral Tablet (Lipitor) Take 1 Tablet by mouth in the morning. 90 Tablet 3 05/05/20 23 Active Furosemide 40 MG Oral Tablet (Lasix) Take 1 Tablet by mouth in the morning and 1 Tablet before bedtime. 180 Tablet 2 12/04/19 23 023 Discontinued(Ca dication List Clean Up) Potassium Chloride Terra ER 20 MEQ Oral Tablet Extended ReleaseIndications: Hypokalemia TAKE ONE TABLET BY MOUTH EVERY MORNING AND AT BEDTIME 60 Tablet 3 12/10/19 23 023 Discontinued documented as of this encounter (statuses as of 05/14/2023) Active Problems Problem Noted Date Bandemia 10/24/2021 [...] subarachnoid hemorrhage 10/04 Coronary artery disease involving [place] heart without angina pectoris 10/04/2020 COPD, group [...] as of this encounter (statuses as of 05/14/2023) Resolved Problems Problem Noted Date Resolved Date [...] Calculus of kidney 08/20/2015 02/01/2018 Overview: right, [place] CT Vitamin D deficiency 01/31/2015 02/01/2018 [...] as of this encounter (statuses as of 05/14/2023) Immunizations Name Administration Dates Next Due COVID-19 mRNA, LNP-s, No Pre serve, 2-Dose Series ([employer]) 01/02/2021,12/05/2020 DTP Vaccine 07/19/2017,04/03/2014 Hepatitis B, 20+ [...] Miscellaneous Notes * Telephone Encounter - DARIA Villar - 05/14/2023 9:00 AM EDT LMOM. Secured 05/21/23 at 245 for wound check. * Telephone Encounter - Flory Jaime RN - 05/14/2023 8:51 AM EDT Please offer next Wednesday05/21/23 for wound/device check. Should patient have any concerns with wound; can be seen sooner for assessment. * Telephone Encounter - DARIA Villar - 05/11/2023 8:31 AM EDT LMOM. * Telephone Encounter - Flory Jaime RN - 05/10/2023 12:19 PM EDT Called, left message for patient to return call. Patient had Linq implanted at [facility] 05/06/2023. Called to offer in office wound/device check for 05/14/23 with [employer] rep. Upon return call, please see if available 05/14/23 and will assist with time. documented in this encounter Plan of Treatment Upcoming Encounters Date Type Specialty Care Team Description 05/17/2023 Laboratory Laboratory Processing [facility], [facility] Mobile Home Draw [address] [place] [address] 05/18/2023 [facility] [address] [place] [address] 05/21/2023 Cardiac Studies Cardiology [facility], [facility] [address] [place] [address] Health Maintenance Due Date Last Done Comments DISCUSS TOBACCO CESSATION (REFER TO SMARTSET #0421) 1970 HIV Screening 1985 Pneumococcal Vaccine: Pediatrics (0 to 5 Years) and At-Risk Patients (6 to 64 Years) (2 - PCV) 05/22/2010 05/22/2009 Cologuard 2015 Fecal Occult Blood Test 2015 Sigmoidoscopy 2015 *ADVANCE DIRECTIVE NOT ON FILE 02/03/2020 LUNG CANCER SCREENING - USE SMARTSET [id number] 2020 02/10/2019, 07/19/2017, 05/09/2017, Additional history exists Zoster Vaccines (1 of 2) 2020 Hepatitis B (3 of 3 - 19+ 3-dose series) 10/11/2020 06/05/2020, 04/10/2020 DIABETES-FOOT EXAM 12/13/2020 12/14/2019, 1 11/03/2014, 09/03/2014 COVID-19 Vaccine (3 - Pfizer series) 02/27/2021 01/02/2021, 12/05/2020 Albumin/Creatinine Ratio 04/10/2021 04/10/2020 Depression Screening, Annual for Pts 12 and Over 05/01/2021 05/01/2020, 02/01/2018 DIABETES-EYE EXAM 11/19/2021 11/19/2020, 04/10/2020 HbA1c 09/18/2022 03/19/2022, 11/19, 06/05/2021, Additional history exists Influenza Vaccine (FLU shot) (#1) 2023 08/26/2013 O2 ASSESSMENT COMPLETED IN PAST YEAR FOR COPD 08/10/2023 08/10/2022 Colonoscopy 12/09/2023 12/08/2013, 07/26/2013 Colorectal Cancer Screening 12/09/2023 GFR 12/18/2023 12/17/2022, 07/21, 07/02/2022, Additional history exists DTaP,Tdap,and Td Vaccines (4 [...] this encounter Medical Devices Implanted Type Area Fuel Verification Technician Device Identifier Shelf Expiration Date Model / Serial / Lot Tube Flex 3.0x2.5 [id number] - [id number] Implanted:Qty: 1 on 12/07/2014 [place]arlos [place]idad [place] [facility] [place] Finger [employer]ON : ORTHOPAEDICS 11/18/2015 [id number] / / [id number] documented as of this encounter Advance Directives [...] the patient have Health Care Power of Circular [place]yer [place]? No Healthcare Agents on File Name Relationship Healthcare Agent Relationship Communication Estrella Seth Other - (no specific identity) Health Care Power of Circular [place]yer [place] Care Teams Seo Intern Relationship Specialty Start Date End Date Roberto Askew MD [address] [place] [id number] PCP - General Internal Medicine 04/10/20 documented as of this encounter
--- OUTSIDE RECORDS SUMMARY | 2023-08-22 22:10 | External Medical Summary | Summary of Care ---
Author Name Unknown Organization [facility] Address [address] [place] [address] Phone [phone] Care Team Providers Care Retail Support Associate Name Role Phone Roberto Askew MD Primary Care Provider + Reason for Visit * Reason Comments Dosage Adjustment Via Phone (anticoag Cl inic) Encounter Details Date Type Department Care Team Description 05/28/2023 Anticoagulation Pharmacy Call Center [address] [place] [address] [facility] [address] [facility] [address] History of pulmonary embolism* Allergies Active Allergy [...] as of this encounter (statuses as of 05/28/2023) Medications Medication Sig Dispensed Refills Start Date [...] day as needed. 0 Active nystatin (NYSTOP) 933945 UNIT/GM powderIndications:Cut aneous candidiasis Apply topically to [...] OPD, group C, by GOLD 2017 classification ([facility]),COPD, group D, by GOLD 2017 classification ([facility]) USE 2 PUFFS BY MOUTH EVERY 4 HOURS NEEDED SHORT OF BREATH 6.7 g 5 11/24/2021 Active Magnesium Oxide 400 (241.3 Mg) MG Oral TabletIndications:Cor onary artery disease involving [place] coronary artery of [place] heart without angina pectoris Take by mouth [...] hemoglobin A1c goal of less than 8.0% ([facility]) Use as directed. 1 Kit 0 10/30/2022 Active Accu-Chek Guide In Vitro Strip (Glucose Blood)Indications:Typ e 2 diabetes mellitus with hemoglobin A1c goal of less than 8.0% ([facility]) Use to check sugars 3 times a day 100 Strip 1 10/30/2022 Active Accu-Chek Softclix LancetsIndications:Ty pe 2 diabetes mellitus with hemoglobin A1c goal of less than 8.0% ([facility]) Use to check sugars 3 times a day 100 Each 3 10/30/2022 Active Cyclobenzaprine HCl 10 MG Oral Tablet (Flexeril)Indications :Chronic pain syndrome TAKE ONE TABLET BY MOUTH 2 TIMES A DAY NEEDED FOR MUSCLE SPASMS 60 Tablet 5 12/01/2022 Active DULoxetine HCl 60 MG Oral Capsule [...] MG Oral TabletIndications:Cor onary artery disease involving [place] coronary artery of [place] heart without angina pectoris Take 1 Tablet by mouth in the morning. In the morning.. 90 Tablet 1 04/05/2023 Active Metoprolol Succinate ER 50 MG Oral Tablet Extended Release 24 Hour (toPROL XL)Indications:Harman ry artery disease involving [place] coronary artery of [place] heart without angina pectoris TAKE 1 & [...] morning. For 4 days. 0 05/26/2023 Active documented as of this encounter (statuses as of 05/28/2023) Active Problems Problem Noted Date Bandemia 10/24/2021 [...] 01/24/2021 Opioid dependence, uncomplicated 021 History of NC (myocardial infarction) Morbid obesity with BMI of 50.0-59.9, ad ult 10/04/2020 History of subdural hematoma 10/04/2020 Gastroesophageal reflux disease without esophagitis 10/04/2020 History of subarachnoid hemorrhage 10/04 Coronary artery disease involving [place] heart without angina pectoris 10/04/2020 COPD, group [...] as of this encounter (statuses as of 05/28/2023) Resolved Problems Problem Noted Date Resolved Date [...] Calculus of kidney 08/20/2015 02/01/2018 Overview: right, [place] CT Vitamin D deficiency 01/31/2015 02/01/2018 Body [...] as of this encounter (statuses as of 05/28/2023) Immunizations Name Administration Dates Next Due COVID-19 mRNA, LNP-s, No Pre serve, 2-Dose Series ([employer]) 01/02/2021,12/05/2020 DTP Vaccine 07/19/2017,04/03/2014 Hepatitis B, 20+ [...] this encounter Progress Notes * Michael Estevez cyber transport systems specialist - 05/28/2023 9:04 AM EDT Contacts Type Contact Phone/Fax 05/28/2023 09:02 AM EDT Phone (Outgoing) Stanton Milner (Self) [phone] (H) Left Message Subjective PT/INR results, Coumadin dose instructions, and next PT/INR date communicated as noted by Pharmacist: Yes Michael Estevez cyber transport systems specialist 05/28/2023, 9:04 AM * Keren Sanchez, [facility] - 05/28/2023 8:11 AM EDT Images from the original note were not included. Coumadin Clinic (region specific) Objective Current Warfarin Dose As of 05/28/2023 Warfarin maintenance plan: 2.5 mg (5 mg x 0.5) every Sun, Tue, Micki; 5 mg (5 mg x 1) all other days INR Result As of 05/28/2023 INR goal: 2.0-3.0 INR used for dosin.7 (05/27/2023) Assessment & Plan Warfarin Plan As of 05/28/2023 Full warfarin instructions: 05/28: 7.5 mg; Otherwise 2.5 mg every Tue, Micki; 5 mg all other days Next INR check: 06/08/2023 Repeat PT/INR in 1.5 week(s) Weekly dose: increased Additional Dosing Information: Description [facility] - pt prefers Tues [facility] at this time Tech to contact patient with dose instructions as noted. Keren Sanchez RPh 05/28/2023, 8:11 AM documented in this encounter Plan of Treatment Upcoming Encounters Date Type Specialty Care Team Description 06/01/2023 Office Visit Internal Medicine Roberto Askew MD [address] [place] [address] 06/08/2023 Laboratory Laboratory Processing [facility], [facility] Mobile Home Draw [address] [place] [address] 06/09/2023 [facility] [address] [place] [address] Health Maintenance Due Date Last Done Comments DISCUSS TOBACCO CESSATION (REFER TO SMARTSET #4196) 1970 HIV Screening 1985 Pneumococcal Vaccine: Pediatrics (0 to 5 Years) and At-Risk Patients (6 to 64 Years) (2 - PCV) 05/22/2010 05/22/2009 Cologuard 2015 Fecal Occult Blood Test 2015 Sigmoidoscopy 2015 *ADVANCE DIRECTIVE NOT ON FILE 02/03/2020 LUNG CANCER SCREENING - USE SMARTSET [id number] 2020 02/10/2019, 07/19/2017, 05/09/2017, Additional history exists [...] this encounter Medical Devices Implanted Type Area Head Start Coordinator Device Identifier Shelf Expiration Date Model / Serial / Lot Tube Flex 3.0x2.5 [id number] - [id number] Implanted:Qty: 1 on 12/07/2014 by Juancarlos Trinidad MD at [facility] Left: Finger [employer] : ORTHOPAEDICS 11/18/2015 [id number] / / [id number] documented as of this encounter Visit Diagnoses [...] the patient have Health Care Power of Inspector Sheet Metal Parts? No Healthcare Agents on File Name Relationship Healthcare Agent Relationship Communication Estrella Seth Other - (no specific identity) Health Care Power of Inspector Sheet Metal Parts Care Teams Retail Support Associate Relationship Specialty Start Date End Date Roberto Askew MD [address] [place] [id number] PCP - General Internal Medicine 04/10/20 documented as of this encounter
--- OUTSIDE RECORDS SUMMARY | 2023-08-22 22:10 | External Medical Summary ---
Author Name Unknown Address Unknown Organization K01:LABORATORY [facility] [place] - [address] [facility] [place] [address] Laboratory Report Ordering Provider Test Date Status ELIAS HILL 06/08/2023 08:27:00 Final Observation Date Value Abnormality Reference (Units ) Status Magnesium 06/08/2023 08:27:00 1.8 1.5-2.6 (m g/dL) Final Performing Location LABORATORY [facility] - [address] [facility] [address]
--- OUTSIDE RECORDS SUMMARY | 2023-08-22 22:10 | External Medical Summary | Summary of Care ---
Author Name Unknown Organization [facility] Address [address] [place] [address] Phone [phone] Care Team Providers Care Monument Installer Name Role Phone Roberto Askew MD Primary Care Provider + Reason for Visit * Reason Onset Date Comments Appointment 05/10/2023 Encounter Details Date Type Department Care Team Description 05/10/2023 Telephone Cardiology, [facility] [address] [place] [address] [facility] [address] [place] [address] Appointment Allergies Active Allergy Reactions Severity Noted [...] day as needed. 0 Active nystatin (NYSTOP) 987232 UNIT/GM powderIndications:C utaneous candidiasis Apply topically to [...] (HCC),COPD, group D, by GOLD 2017 classification ([facility]) USE 2 PUFFS BY MOUTH EVERY 4 HOURS NEEDED SHORT OF BREATH 6.7 g 5 11/25/19 Active Magnesium Oxide 400 (241.3 Mg) MG Oral TabletIndications:C oronary artery disease involving [place] coronary artery of [place] heart without angina pectoris Take by [...] goal of less than 8.0% ([facility]) Use as directed. 1 Kit 0 10/30/19 23 Active Accu-Chek Guide In Vitro Strip (Glucose Blood)Indications:T ype 2 diabetes mellitus with hemoglobin A1c goal of less than 8.0% ([facility]) Use to check sugars 3 times a day 100 Strip 1 10/30/19 23 Active Accu-Chek Softclix LancetsIndications: Type 2 diabetes mellitus with hemoglobin A1c goal of less than 8.0% ([facility]) Use to check sugars 3 times a [...] in the morning. Follow taper [facility] from [facility]. 0 12/26/19 23 Active guaiFENesin-Codeine 100-10 MG/5ML [...] MG Oral TabletIndications:C oronary artery disease involving [place] coronary artery of [place] heart without angina pectoris Take 1 Tablet by mouth in the morning. In the morning.. 90 Tablet 1 04/05/20 23 Active Metoprolol Succinate ER 50 MG Oral Tablet Extended Release 24 Hour (toPROL XL)Indications:Freddie nary artery disease involving [place] coronary artery of [place] heart without angina pectoris TAKE 1 [...] bedtime. 180 Tablet 2 12/04/19 23 023 Discontinued(Pr dication List Clean Up) Potassium Chloride Terra [...] 01/24/2021 Opioid dependence, uncomplicated 021 History of [place] (myocardial infarction) Morbid obesity with BMI of 50.0-59.9, ad ult 10/04/2020 History of subdural hematoma 10/04/2020 Gastroesophageal reflux disease without esophagitis 10/04/2020 History of subarachnoid hemorrhage 10/04 Coronary artery disease involving [place] heart without angina pectoris 10/04/2020 COPD, [...] Calculus of kidney 08/20/2015 02/01/2018 Overview: right, [place] CT Vitamin D deficiency 01/31/2015 02/01/2018 Body [...] mRNA, LNP-s, No Pre serve, 2-Dose Series ([employer]) 01/02/2021,12/05/2020 DTP Vaccine 07/19/2017,04/03/2014 Hepatitis B, 20+ [...] return call. Patient had Linq implanted at [facility] 05/06/2023. Called to offer in office wound/device check for 05/14/23 with [employer] rep. Upon return call, please see if available 05/14/23 and will assist with time. documented in this encounter Plan of Treatment Upcoming Encounters Date Type Specialty Care Team Description 05/17/2023 Laboratory Laboratory Processing [facility], [facility] Mobile Home Draw [address] [place] [address] 05/18/2023 [facility] [address] [place] [address] 05/21/2023 Cardiac Studies Cardiology [facility], [facility] [address] [place] [address] Health Maintenance Due Date Last Done Comments DISCUSS TOBACCO CESSATION (REFER TO SMARTSET #9771) 1970 HIV Screening 1985 Pneumococcal Vaccine: Pediatrics (0 to 5 Years) and At-Risk Patients (6 to 64 Years) (2 - PCV) 05/22/2010 05/22/2009 Cologuard 2015 Fecal Occult Blood Test 2015 Sigmoidoscopy 2015 *ADVANCE DIRECTIVE NOT ON FILE 02/03/2020 LUNG CANCER SCREENING - USE SMARTSET [id number] 2020 02/10/2019, 07/19/2017, 05/09/2017, Additional history exists [...] this encounter Medical Devices Implanted Type Area Literacy Coach Device Identifier Shelf Expiration Date Model / Serial / Lot Tube Flex 3.0x2.5 [id number] - [id number] Implanted:Qty: 1 on 12/07/2014 by Juancarlos Trinidad [place] [facility] [place]: Finger LANDON : ORTHOPAEDICS 11/18/2015 [id number] / / [id number] documented as of this encounter Advance Directives [...] the patient have Health Care Power of Top Lift Nailer? No Healthcare Agents on File Name Relationship Healthcare Agent Relationship Communication Estrella Seth Other - (no specific identity) Health Care Power of Top Lift Nailer Care Teams Monument Installer Relationship Specialty Start Date End Date Roberto Askew MD [address] [place] [address] PCP - General Internal Medicine 04/10/20 documented as of this encounter
--- OUTSIDE RECORDS SUMMARY | 2023-08-22 22:10 | External Medical Summary ---
Author Name Unknown Address Unknown Organization [id number]:[facility] - [address] [facility] [place] [address] Laboratory Report Ordering Provider Test Date Status [place] 06/08/2023 08:27:00 Final Observation Date Value Abnormality Reference (Units ) Status BUN 06/08/2023 08:27:00 17 6-20 (mg/dL) Final Creatinine 06/08/2023 08:27:00 1.3 Above high normal 0.6-1.2 (mg/dL) Final Glomerular filtration rate/1.73 sq M.predicted [Volume Rate/Area] in Serum, Plasma or Blood by Creatinine-based formula (CKD-EPI) 06/08/2023 08:27:00 68 >=60 (mL/min) Final eGFR is calculated based on the CKD-EPI 2020 equation SODIUM 06/08/2023 08:27:00 132 Below low normal 135 -146 (mmol/L) Final Potassium 06/08/2023 08:27:00 3.3 Below low normal 3.5 -5.1 (mmol/L) Final Cl 06/08/2023 08:27:00 86 Below low normal 98- 107 (mmol/L) Final CO2 06/08/2023 08:27:00 31 22-32 (mmo l/L) Final Anion gap 06/08/2023 08:27:00 15 7-15 (mmol /L) Final Glucose 06/08/2023 08:27:00 327 Above high normal 70 -120 (mg/dL) Final Albumin 06/08/2023 08:27:00 3.9 3.8-5.0 (g /dL) Final AST (Aspartate aminotransferase) 06/08/2023 08:27:00 18 10-50 (U/L) Fin al Alk Phos 06/08/2023 08:27:00 163 Above high normal 35 -130 (U/L) Final Bilirubin, Total 06/08/2023 08:27:00 0.9 <=1 .2 (mg/dL) Final Calcium 06/08/2023 08:27:00 9.7 8.4-10.2 ( mg/dL) Final Protein 06/08/2023 08:27:00 7.1 6.0-8.3 (g /dL) Final ALT (Alanine aminotransferase) 06/08/2023 08:27:00 17 10-50 (U/L) Hugh mcnamara Performing Location [facility] - [address] [facility] [address]
--- OUTSIDE RECORDS SUMMARY | 2023-08-22 22:10 | External Medical Summary | Summary of Care ---
Author Name Unknown Organization [facility] Address [address] [place] [address] Phone [phone] Care Team Providers Care Container Finisher Name Role Phone Roberto Askew MD Primary Care Provider + Reason for Visit * Reason Comments eRx-Medication Refill Encounter Details Date Type Department Care Team Description 05/27/2023 Refill General Internal Medicine [facility] [address] [facility] [place] [address] Roberto Askew MD [address] [place] [address] Chronic pain syndrome Allergies Active Allergy Reactions Severity Noted Date [...] day as needed. 0 Active nystatin (NYSTOP) 157536 UNIT/GM powderIndications:C utaneous candidiasis Apply topically to [...] :COPD, group C, by GOLD 2017 classification ([facility]),COPD, group D, by GOLD 2017 classification ([facility]) USE 2 PUFFS BY MOUTH EVERY 4 HOURS NEEDED SHORT OF BREATH 6.7 g 5 2 Active Magnesium Oxide 400 (241.3 Mg) MG Oral TabletIndications:C oronary artery disease involving [place] coronary artery [...] a day 100 Each 3 3 Active DULoxetine HCl 60 MG Oral Capsule Delayed Release Particles (Cymbalta)Indicatio ns:DM type 2 with diabetic peripheral neuropathy (HCC),Chronic bilateral low back pain without sciatica Take 1 Capsule by mouth in the morning. 90 Capsule 1 3 Active Ondansetron HCl 4 MG [...] MG Oral TabletIndications:C oronary artery disease involving [place] coronary artery of [place] heart without angina pectoris Take 1 Tablet by mouth in the morning. In the morning.. 90 Tablet 1 3 Active Metoprolol Succinate ER 50 MG Oral Tablet Extended Release 24 Hour (toPROL XL)Indications:Freddie nary artery disease involving [place] coronary artery [...] MUSCLE SPASM(S) 60 Tablet 5 3 Active Cyclobenzaprine HCl 10 MG Oral Tablet (Flexeril)Indicatio ns:Chronic pain syndrome TAKE ONE TABLET BY MOUTH 2 TIMES A DAY NEEDED FOR MUSCLE SPASMS 60 Tablet 5 3 023 Discontinued documented as of this [...] subarachnoid hemorrhage 10/04 Coronary artery disease involving [place] heart without angina pectoris 10/04/2020 [...] Problem Noted Date Resolved Date Hyperlipidemia, unspecified 01/24/2021 06/01/2021 Indwelling Lloyd catheter present 06/05/2020 12/10/2021 Coronary [...] Morbid obesity with BMI of 40.0-44.9, adult 02/03/201706/24/2017 Overview: Per Obesity protocol #1 Cavitary lung [...] Calculus of kidney 08/20/2015 02/01/2018 Overview: right, [place] CT Vitamin D deficiency 01/31/2015 02/01/2018 Body [...] mRNA, LNP-s, No Pre serve, 2-Dose Series ([employer]) 01/02/2021,12/05/2020 DTP Vaccine 07/19/2017,04/03/2014 Hepatitis B, 20+ [...] encounter Miscellaneous Notes * Telephone Encounter - Jono Pollock MD - 05/28/2023 4:11 PM EDTSigned Prescriptions: Disp Refills Cyclobenzaprine HCl 10 MG Oral Tablet (Fle*60 Tab*5 Sig: TAKE 1 TABLET TWICE DAILY NEEDED FOR MUSCLE SPASM(S) Authorizing Provider: JONO POLLOCK * Telephone Encounter - Manuel Quiñones RPh - 05/28/2023 3:53 PM EDTPending Prescriptions: Disp Refills Cyclobenzaprine HCl 10 MG Oral Tablet [Pha*60 Tab*5 Sig: TAKE 1 TABLET TWICE DAILY NEEDED FOR MUSCLE SPASM(S) * Telephone Encounter - Manuel Abdulaziz SanonIshmael, [facility] - 05/28/2023 3:53 PM EDT Pending Prescriptions: Disp Refills Cyclobenzaprine HCl 10 MG Oral Tablet [Pha*60 Tab*5 Sig: TAKE 1 TABLET TWICE DAILY NEEDED FOR MUSCLE SPASM(S) 08/10/2022 (in office), 12/10/2021 (telemedicine) 06/01/2023 If no future appointments scheduled, and last appointment is greater than a year ago, please schedule patient for a follow-up appointment Last date the medication was ordered: 12/01/22 Pharmacy: [facility] [address] [facility] Is this request for a controlled substance?No Urine Drug Screen:No results found. However, due to the size of the patient record, not all encounters were searched. Please check Results Review for a complete set of results. Patient Phone Numbers Labs: Lab Results Component Value Date/Time CREAT 1.0 12/17/2022 08:35 AM CREAT 1.05 08/05/2022 12:00 AM CREAT 1.1 10/15/2020 08:46 AM POTASSIUM 4.4 12/17/2022 08:35 AM POTASSIUM 3.7 08/05/2022 12:00 AM POTASSIUM 3.7 10/15/2020 08:46 AM TSH 1.51 12/10/2020 09:50 AM TSH 1.45 10/08/2020 08:05 AM LDLCALC 71 12/08/2022 08:38 AM LDLCALC 95 10/08/2020 08:05 AM LDLDIRECT 105 12/10/2020 09:50 AM LDLDIRECT NOT APPLICABLE 10/08/2020 08:05 AM LDLDIRECT 84 10/04/2017 01:15 PM ALT 13 07/02/2022 07:05 AM ALT 23 10/08/2020 08:05 AM HGBA1C 6.9 (H) 03/19/2022 06:48 AM HGBA1C 8.8 (H) 10/08/2020 08:05 AM documented in this encounter Plan of Treatment Upcoming Encounters Date Type Specialty Care Team Description 06/01/2023 Office Visit Internal Medicine Roberto Askew MD [address] [place] [address] 06/08/2023 Laboratory Laboratory Processing [facility], [facility] Mobile Home Draw [address] [place] [address] 06/09/2023 [facility] [address] [place] [address] Health Maintenance Due Date Last Done Comments DISCUSS TOBACCO CESSATION (REFER TO SMARTSET #3291) 1970 HIV Screening 1985 Pneumococcal Vaccine: Pediatrics (0 to 5 Years) and At-Risk Patients (6 to 64 Years) (2 - PCV) 05/22/2010 05/22/2009 Cologuard 2015 Fecal Occult Blood Test 2015 Sigmoidoscopy 2015 *ADVANCE DIRECTIVE NOT ON FILE 02/03/2020 LUNG CANCER SCREENING - USE SMARTSET [id number] 2020 02/10/2019, 07/19/2017, 05/09/2017, Additional history exists [...] this encounter Medical Devices Implanted Type Area Associate Producer Device Identifier Shelf Expiration Date Model / Serial / Lot Tube Flex 3.0x2.5 [id number] - [id number] Implanted:Qty: 1 on 12/07/2014 by Juancarlos Trinidad MD at [facility] Left: Finger LANDON : ORTHOPAEDICS 11/18/2015 [id number] / / [id number] documented as of this encounter Visit Diagnoses Diagnosis Chronic pain syndrome documented in this encounter Advance Directives Latest [...] the patient have Health Care Power of [place]? No Healthcare Agents on File Name Relationship Healthcare Agent Relationship Communication Estrella Seth Other - (no specific identity) Health Care Power of [place] Care Teams Container Finisher Relationship Specialty Start Date End Date Roberto Askew MD [address] [place] [address], [place] [address] PCP - General Internal Medicine 04/10/20 documented as of this encounter
--- OUTSIDE RECORDS SUMMARY | 2023-08-22 22:10 | External Medical Summary ---
Author Name Unknown Address Unknown Organization [id number]:[facility] - [address] [place] [address] Laboratory Report Ordering Provider Test Date Status ABADOMENICALIONEL 05/17/2023 07:57:00 Final Standing order for pt/inr. < br/>Please draw pt/inr every 1 to 4 weeks as requested
Results to [facility]

Warfarin Therapy
INR: 2.0-3.0 conventional anticoagulation
INR: 2.5-3.5 high intensity anticoagulation Observation Date Value Abnormality Reference (Units ) Status PT 05/17/2023 07:57:00 14.9 11.6-15.2 (seconds) Final INR 05/17/2023 07:57:00 1.2 0.8-1.2 Final Performing Location [facility] - [address] [place] [address]
--- OUTSIDE RECORDS SUMMARY | 2023-08-22 22:10 | External Medical Summary ---
Author Name Unknown Address Unknown Organization [id number]:[facility] - [address] [place] [address] Laboratory Report Ordering Provider Test Date Status ABATULIO 05/27/2023 07:55:00 Final Standing order for pt/inr. < br/>Please draw pt/inr every 1 to 4 weeks as requested
Results to [facility]

Warfarin Therapy
INR: 2.0-3.0 conventional anticoagulation
INR: 2.5-3.5 high intensity anticoagulation Observation Date Value Abnormality Reference (Units ) Status PT 05/27/2023 07:55:00 20.0 Above high normal 11 .6-15.2 (seconds) Final INR 05/27/2023 07:55:00 1.7 Above high normal 0. 8-1.2 Final Performing Location [facility] - [address] [place] [address]
--- OUTSIDE RECORDS SUMMARY | 2023-08-22 22:10 | External Medical Summary | Summary of Care ---
Author Name Unknown Organization [facility] Address [address] [place] [address] Phone [phone] Care Team Providers Care Sanitor Name Role Phone Roberto Askew MD Primary Care Provider + Reason for Visit * Reason Comments Dosage Adjustment Via Phone (anticoag Cl inic) Encounter Details Date Type Department Care Team Description 05/18/2023 Anticoagulation Pharmacy Call Center [address] [place] [address] [facility] [address] [facility] [place] [address] History of pulmonary embolism* Allergies Active Allergy [...] as of this encounter (statuses as of 05/18/2023) Medications Medication Sig Dispensed Refills Start Date [...] day as needed. 0 Active nystatin (NYSTOP) 821442 UNIT/GM powderIndications:Cut aneous candidiasis Apply topically to [...] MG Oral TabletIndications:Cor onary artery disease involving apache coronary artery of apache heart without angina pectoris Take by mouth 400 mg in the morning. 30 Tablet 11 12/10/2021 Active Insulin Glargine 100 UNIT/ML Subcutaneous Solution Pen-injector (Lantus) Inject under the skin 50 Units before bedtime. 10 Each 5 03/27/2022 Active Additional Information Patient not taking.Reported on [...] FOR NAUSEA 20 Tablet 1 12/24/2022 Active predniSONE 10 MG Oral Tablet (Deltasone) Take 1 Tablet by mouth in the morning. Follow taper instructions from [facility]. 0 12/25/2022 Active guaiFENesin-Codeine 100-10 MG/5ML Oral Syrup (Robitussin AC) Take 5 mL by mouth 3 times a day as needed for Cough. 120 mL 0 12/25/2022 Active Benzonatate 100 MG Oral Capsule (Tessalon Perles) TAKEONE CAPSULE BY MOUTH EVERY MORNING, ONE AT NOON, AND ONE EVERY EVENING, FOR COUGH. 20 Capsule 0 12/30/2022 Active Isosorbide Dinitrate 30 MG Oral TabletIndications:Cor onary artery disease involving apache coronary artery of apache heart without angina pectoris Take 1 Tablet by mouth in the morning. In the morning.. 90 Tablet 1 04/05/2023 Active Metoprolol Succinate ER 50 MG Oral Tablet Extended Release 24 Hour (toPROL XL)Indications:Harman ry artery disease involving apache coronary artery of apache heart without angina pectoris TAKE 1 & [...] the morning. 5 Tablet 0 05/11/2023 Active documented as of this encounter (statuses as of 05/18/2023) Active Problems Problem Noted Date Bandemia 10/24/2021 Type 2 diabetes mellitus with foot ulcer (CODE) 06/20/2021 Low testosterone 06/20/2021 Diabetic retinopathy of both eyes associ ated with type 2 diabetes mellitus 06/05/2021 Overview: 04/10/2020 Retinal Scan Interpretation: There is mild retinopathy in both eyes Chronic bilateral low back pain without sciatica 03/14/2021 History of leukocytosis 01/24/2021 DRAIA and COPD overlap syndrome 01/24/2021 Opioid dependence, uncomplicated 021 History of [place] (myocardial infarction) Morbid obesity with BMI of 50.0-59.9, ad ult 10/04/2020 History of subdural hematoma 10/04/2020 Gastroesophageal reflux disease without esophagitis 10/04/2020 History of subarachnoid hemorrhage 10/04 Coronary artery disease involving apache heart without angina pectoris 10/04/2020 COPD, group [...] as of this encounter (statuses as of 05/18/2023) Resolved Problems Problem Noted Date Resolved Date [...] Calculus of kidney 08/20/2015 02/01/2018 Overview: right, [place] CT Vitamin D deficiency 01/31/2015 02/01/2018 Body [...] 01/31/20 15 Acute respiratory failure with hypoxia 01/30/2015 Type 2 diabetes mellitus wit h [...] as of this encounter (statuses as of 05/18/2023) Immunizations Name Administration Dates Next Due COVID-19 mRNA, LNP-s, No Pre serve, 2-Dose Series ([employer]) 01/02/2021,12/05/2020 DTP Vaccine 07/19/2017,04/03/2014 Hepatitis B, 20+ [...] as of this encounter Progress Notes * Lisa Loya CPhT - 05/18/2023 1:44 PM EDT Contacts Type Contact Phone/Fax 05/18/2023 01:41 PM EDT Phone (Outgoing) Stanton Milner (Self) [phone] (H) Spoke to Patient Subjective Patient Findings [...] date communicated as noted by Pharmacist: Yes Lisa Loya CPhT 05/18/2023, 1:44 PM * Keren Sanchez [facility] - 05/18/2023 10:52 AM EDT Images from the original note were not included. Coumadin Clinic (region specific) Objective Current Warfarin Dose As of 05/18/2023 Warfarin maintenance plan: 5 mg (5 mg x 1) every Mon, Wed, Fri; 2.5 mg (5 mg x 0.5) all other days INR Result As of 05/18/2023 INR goal: 2.0-3.0 INR used for dosin.2 (05/17/2023) Assessment & Plan Warfarin Plan As of 05/18/2023 Full warfarin instructions: 05/18: 5 mg; Otherwise 2.5 mg every Sun, Tue, Micki; 5 mg all other days Next INR check: 05/27/2023 Repeat PT/INR in 1.5 week(s) Weekly dose: increased Additional Dosing Information: Description [facility] - pt prefers Tues [facility] at this time Tech to contact patient with dose instructions as noted. Keren Sanchez RPh 05/18/2023, 10:54 AM documented in this encounter Plan of Treatment Upcoming Encounters Date Type Specialty Care Team Description 05/27/2023 Laboratory Laboratory Processing [facility], [facility] Mobile Home Draw [address] [place] [address] Health Maintenance Due Date Last Done Comments DISCUSS TOBACCO CESSATION (REFER TO SMARTSET #8838) 1970 HIV Screening 1985 Pneumococcal Vaccine: Pediatrics (0 to 5 Years) and At-Risk Patients (6 to 64 Years) (2 - PCV) 05/22/2010 05/22/2009 Cologuard 2015 Fecal Occult Blood Test 2015 Sigmoidoscopy 2015 *ADVANCE DIRECTIVE NOT ON FILE 02/03/2020 LUNG CANCER SCREENING - USE SMARTSET [id number] 2020 02/10/2019, 07/19/2017, 05/09/2017, Additional history exists [...] this encounter Medical Devices Implanted Type Area Solids Control Technician Device Identifier Shelf Expiration Date Model / Serial / Lot Tube Flex 3.0x2.5 [id number] - [id number] Implanted:Qty: 1 on 12/07/2014 by Juancarlos Trinidad MD at [facility] Left: Finger LANDON : ORTHOPAEDICS 11/18/2015 [id number] / / [id number] documented as of this encounter Visit Diagnoses [...] the patient have Health Care Power of Foreign Language Stenographer? No Healthcare Agents on File Name Relationship Healthcare Agent Relationship Communication Estrella Seth Other - (no specific identity) Health Care Power of Foreign Language Stenographer Care Teams Sanitor Relationship Specialty Start Date End Date Roberto Askew MD [address] [place] [id number] PCP - General Internal Medicine 04/10/20 documented as of this encounter
--- OUTSIDE RECORDS SUMMARY | 2023-08-22 22:10 | External Medical Summary | Summary of Care ---
Author Name Unknown Organization [facility] Address [address] [place] [address] Phone [phone] Care Team Providers Care Security And Compliance Project Manager Name Role Phone Roberto Askew MD Primary Care Provider + Reason for Visit * Reason Onset Date Comments Appointment 05/10/2023 Encounter Details Date Type Department Care Team Description 05/10/2023 Telephone [address]iology, [facility] [address] [place] [address] [facility] [address] [place] [place] [address] Appointment Allergies Active Allergy Reactions Severity Noted [...] as of this encounter (statuses as of 05/17/2023) Medications Medication Sig Dispensed Refills Start Date [...] day as needed. 0 Active nystatin (NYSTOP) 666384 UNIT/GM powderIndications:C utaneous candidiasis Apply topically to [...] (HCC),COPD, group D, by GOLD 2017 classification ([place] [...] in the morning. Follow taper instructions from [facility]. 0 12/26/19 23 Active guaiFENesin-Codeine 100-10 MG/5ML [...] bedtime. 180 Tablet 2 12/04/19 23 023 Discontinued(Ri dication List Clean Up) Potassium Chloride Terra ER 20 MEQ Oral Tablet Extended ReleaseIndications: Hypokalemia TAKE ONE TABLET BY MOUTH EVERY MORNING AND AT BEDTIME 60 Tablet 3 12/10/19 23 023 Discontinued documented as of this encounter (statuses as of 05/17/2023) Active Problems Problem Noted Date Bandemia 10/24/2021 [...] 01/24/2021 Opioid dependence, uncomplicated 021 History of IA (myocardial infarction) Morbid obesity with BMI of [...] as of this encounter (statuses as of 05/17/2023) Resolved Problems Problem Noted Date Resolved Date [...] Calculus of kidney 08/20/2015 02/01/2018 Overview: right, [place] Vitamin D deficiency 01/31/2015 02/01/2018 Body [...] as of this encounter (statuses as of 05/17/2023) Immunizations Name Administration Dates Next Due COVID-19 mRNA, LNP-s, No Pre serve, 2-Dose Series ([employer]) 01/02/2021,12/05/2020 DTP Vaccine 07/19/2017,04/03/2014 Hepatitis B, 20+ [...] * Telephone Encounter - DARIA Villar - 05/17/2023 9:01 AM EDT Spoke with pt. Pt declined 05/21/23 appt due to having to peanut picker grandson from school at that time. Pt declined rescheduling at this time. Pt needs to check with his and figure out transportation. Pt states he will call us. Pt would like a call from a nurse today to let him know if any information has been received from the device yet. * Telephone Encounter - DARIA Villar - [...] return call. Patient had Linq implanted at [facility] 05/06/2023. Called to offer in office wound/device check for 05/14/23 with [employer] rep. Upon return call, please see if available 05/14/23 and will assist with time. documented in this encounter Plan of Treatment Upcoming Encounters Date Type Specialty Care Team Description 05/17/2023 Laboratory Laboratory Processing [facility] Home Draw [address] [place] [address] History of pulmonary embolism 05/18/2023 [facility] [address] [place] [address] Health Maintenance Due Date Last Done Comments DISCUSS TOBACCO CESSATION (REFER TO SMARTSET #3291) 1970 HIV Screening 1985 Pneumococcal Vaccine: Pediatrics (0 to 5 Years) and At-Risk Patients (6 to 64 Years) (2 - PCV) 05/22/2010 05/22/2009 Cologuard 2015 Fecal Occult Blood Test 2015 Sigmoidoscopy 2015 *ADVANCE DIRECTIVE NOT ON FILE 02/03/2020 LUNG CANCER SCREENING - USE SMARTSET [id number] 2020 02/10/2019, 07/19/2017, 05/09/2017, Additional history exists [...] this encounter Medical Devices Implanted Type Area Production Planner Scheduler Device Identifier Shelf Expiration Date Model / Serial / Lot Tube Flex 3.0x2.5 [id number] - [id number] Implanted:Qty: 1 on 12/07/2014 by Juancarlos Trinidad MD at [facility] Left: Finger LANDON : ORTHOPAEDICS 11/18/2015 [id number] / / [id number] documented as of this encounter Advance Directives [...] the patient have Health Care Power of Terminal Operator? No Healthcare Agents on File Name Relationship Healthcare Agent Relationship Communication Estrella Seth Other - (no specific identity) Health Care Power of Terminal Operator Care Teams Security And Compliance Project Manager Relationship Specialty Start Date End Date Roberto Askew MD [address] [place] [address], [place] [address] PCP - General Internal Medicine 04/10/20 documented as of this encounter
--- OUTSIDE RECORDS SUMMARY | 2023-08-22 22:10 | External Medical Summary | Summary of Care ---
Author Name Unknown Organization [facility] Address [address] [place] [address] Phone [phone] Care Team Providers Care Form Coverer Name Role Phone Roberto Askew MD Primary Care Provider + Reason for Visit * Reason Onset Date Comments Med Request 05/27/2023 Encounter Details Date Type Department Care Team Description 05/27/2023 Telephone General Internal Medicine [facility] [place] [address] [facility] [place] [address] Roberto Askew MD [address] [place] [address] Med Request Allergies Active Allergy Reactions Severity Noted Date [...] as of this encounter (statuses as of 06/03/2023) Medications Medication Sig Dispensed Refills Start Date [...] day as needed. 0 Active nystatin (NYSTOP) 051386 UNIT/GM powderIndications:C utaneous candidiasis Apply topically to [...] C, by GOLD 2017 classification ([facility]),COPD, group D, by GOLD 2017 classification ([facility]) USE 2 PUFFS BY MOUTH EVERY 4 HOURS NEEDED SHORT OF BREATH 6.7 g 5 2 Active Magnesium Oxide 400 (241.3 Mg) MG Oral TabletIndications:C oronary artery disease involving [place] coronary artery of [place] heart without angina pectoris Take by mouth [...] goal of less than 8.0% ([facility]) Use as directed. 1 Kit 0 3 Active Accu-Chek Guide In Vitro Strip (Glucose Blood)Indications:T ype 2 diabetes mellitus with hemoglobin A1c goal of less than 8.0% ([facility]) Use to check sugars 3 times a day 100 Strip 1 3 Active Accu-Chek Softclix LancetsIndications: Type 2 diabetes mellitus with hemoglobin A1c goal of less than 8.0% ([facility]) Use to check sugars 3 times a [...] MG Oral TabletIndications:C oronary artery disease involving [place] coronary artery of [place] heart without angina pectoris Take 1 Tablet by mouth in the morning. In the morning.. 90 Tablet 1 3 Active Metoprolol Succinate ER 50 MG Oral Tablet Extended Release 24 Hour (toPROL XL)Indications:Freddie nary artery disease involving [place] coronary artery of [place] heart without angina pectoris TAKE 1 & [...] as of this encounter (statuses as of 06/03/2023) Active Problems Problem Noted Date Bandemia 10/24/2021 [...] subarachnoid hemorrhage 10/04 Coronary artery disease involving [place] heart without angina pectoris 10/04/2020 COPD, group [...] as of this encounter (statuses as of 06/03/2023) Resolved Problems Problem Noted Date Resolved Date [...] Calculus of kidney 08/20/2015 02/01/2018 Overview: right, [place] Vitamin D deficiency 01/31/2015 02/01/2018 Body [...] as of this encounter (statuses as of 06/03/2023) Immunizations Name Administration Dates Next Due COVID-19 mRNA, LNP-s, No Pre serve, 2-Dose Series ([employer]) 01/02/2021,12/05/2020 DTP Vaccine 07/19/2017,04/03/2014 Hepatitis B, 20+ [...] Telephone Encounter - Alexa Fink CMA - 05/28/2023 8:39 AM EDT Called, left message for patient to return call. Please take information from patient about his concerns. * Telephone Encounter - ARTEM Walls - 05/27/2023 5:18 PM EDT Pt requesting a call back from DR office Today. Pt cannot wait for next visit. Please call pt back at [phone]. Thank You, Michael Estevez [facility] Autotransfusionist II [facility] (Formerly Telepharmacy) 05/27/2023, 5:19 PM * Telephone Encounter - Roberto Askew MD - 05/27/2023 1:20 PM EDT Please finish dose as prescribed by inpatient team we can discuss other issues at hospital follow up * Telephone Encounter - Jo Mathis RN - 05/27/2023 1:07 PM EDT Call placed to Bill since he was recently admitted to [facility] 05/22/23-05/26/23 for COPD exacerbation and catheter associated UTI. He was discharged on 20mg PO prednisone daily for 4 days. Bill is asking ifDr. Askew will prescribe more prednisone, like a taper dose? He is scheduled for hospital follow-up on 06/01/23. documented in this encounter Plan of Treatment Upcoming Encounters Date Type Specialty Care Team Description 06/08/2023 Laboratory Laboratory Processing [facility] Draw [address] [place] [address] 06/09/2023 [facility] [address] [place] [address] Health Maintenance Due Date Last Done Comments DISCUSS TOBACCO CESSATION (REFER TO SMARTSET #3291) 1970 HIV Screening 1985 Pneumococcal Vaccine: Pediatrics (0 to 5 Years) and At-Risk Patients (6 to 64 Years) (2 - PCV) 05/22/2010 05/22/2009 Cologuard 2015 Fecal Occult Blood Test 2015 Sigmoidoscopy 2015 *ADVANCE DIRECTIVE NOT ON FILE 02/03/2020 LUNG CANCER SCREENING - USE SMARTSET [id number] 2020 02/10/2019, 07/19/2017, 05/09/2017, Additional history exists [...] encounter Medical Devices Implanted Type Area Senior Marketing Associate Device Identifier Shelf Expiration Date Model / Serial / Lot Tube Flex 3.0x2.5 [id number] - [id number] Implanted:Qty: 1 on 12/07/2014 by Juancarlos Trinidad MD at [facility] Left: Finger [employer] : ORTHOPAEDICS 11/18/2015 [id number] / / [id number] documented as of this encounter Advance Directives [...] the patient have Health Care Power of Home Maker? No Healthcare Agents on File Name Relationship Healthcare Agent Relationship Communication sEtrella Seth Other - (no specific identity) Health Care Power of Home Maker Care Teams Form Coverer Relationship Specialty Start Date End Date Roberto Askew MD [address] [place] [id number] PCP - General Internal Medicine 04/10/20 documented as of this encounter
--- OUTSIDE RECORDS SUMMARY | 2023-08-22 22:10 | External Medical Summary | Summary of Care ---
Author Name Unknown Organization [facility] Address [address] [place] [address] Phone [phone] Care Team Providers Care Trial Consultant Name Role Phone Roberto Askew MD Primary Care Provider + Reason for Visit * Reason Onset Date Comments Hospital Follow-Up 05/27/2023 Encounter Details Date Type Department Care Team Description 05/27/2023 Telephone General Internal Medicine [facility] [address] [place] [address] Jo Mathis RN Hospital Follow-Up Allergies Active Allergy Reactions Severity Noted Date [...] as of this encounter (statuses as of 05/27/2023) Medications Medication Sig Dispensed Refills Start Date [...] day as needed. 0 Active nystatin (NYSTOP) 943879 UNIT/GM powderIndications:Cu taneous candidiasis Apply topically to [...] COPD, group C, by GOLD 2017 classification ([facility]),COPD, group D, by GOLD 2017 classification ([facility]) USE 2 PUFFS BY MOUTH EVERY 4 HOURS NEEDED SHORT OF BREATH 6.7 g 5 2 Active Magnesium Oxide 400 (241.3 Mg) MG Oral TabletIndications:Co ronary artery disease involving [place] coronary artery of [place] heart without angina pectoris Take by mouth [...] a day 100 Each 3 3 Active Cyclobenzaprine HCl 10 MG Oral Tablet (Flexeril)Indication s:Chronic pain syndrome TAKE ONE TABLET BY MOUTH 2 TIMES A DAY NEEDED FOR MUSCLE SPASMS 60 Tablet 5 3 Active DULoxetine HCl [...] MG Oral TabletIndications:Co ronary artery disease involving [place] coronary artery of [place] heart without angina pectoris Take 1 Tablet by mouth in the morning. In the morning.. 90 Tablet 1 3 Active Metoprolol Succinate ER 50 MG Oral Tablet Extended Release 24 Hour (toPROL XL)Indications:Coron uziel artery disease involving [place] coronary artery of [place] heart without angina pectoris TAKE 1 & [...] morning. For 4 days. 0 3 Active predniSONE 10 MG Oral Tablet (Deltasone) Take 1 Tablet by mouth in the morning. Follow taper instructions from [facility]. 0 3 05/27/20 23 Discontinu ed(Medicat ion List Clean Up) documented as of this encounter (statuses as of 05/27/2023) Active Problems Problem Noted Date Bandemia 10/24/2021 [...] 01/24/2021 Opioid dependence, uncomplicated 021 History of RI (myocardial infarction) Morbid obesity with BMI of 50.0-59.9, ad ult 10/04/2020 History of subdural hematoma 10/04/2020 Gastroesophageal reflux disease without esophagitis 10/04/2020 History of subarachnoid hemorrhage 10/04 Coronary artery disease involving [place] heart without angina pectoris 10/04/2020 COPD, group [...] as of this encounter (statuses as of 05/27/2023) Resolved Problems Problem Noted Date Resolved Date Hyperlipidemia, unspecified 01/24/2021 06/2 01/2021 Indwelling Fontaine catheter present 06/05/2020 12/10/2021 Coronary artery disease [...] Calculus of kidney 08/20/2015 02/01/2018 Overview: right, [place] CT Vitamin D deficiency 01/31/2015 02/01/2018 Body [...] as of this encounter (statuses as of 05/27/2023) Immunizations Name Administration Dates Next Due COVID-19 mRNA, LNP-s, No Pre serve, 2-Dose Series ([employer]) 01/02/2021,12/05/2020 DTP Vaccine 07/19/2017,04/03/2014 Hepatitis B, 20+ [...] encounter Miscellaneous Notes * Telephone Encounter - Jo Mathis RN - 05/27/2023 1:15 PM EDT Transitions of Care Note Reason for Referral:Recent Admission Phone visit for follow up: FARIDA Admitted to: [facility], Date: 05/22/23 Discharged to: HOME, Date: 05/26/23 Diagnosis driving hospitalization: Acute exacerbation of COPD and catheter associated UTI. Source/Contact: Patient SUBJECTIVE Consent: Verbal consent for review of hospital discharge: Yes REVIEW OF SYSTEMS Patient/Other Reports: Current patient/caregiver problems or concerns: Patient feels he is doing as good as expected at this time. He has a question about his prednisone, he verbalizes that he does not feel it is enough for only [address] Askew to send prescription in for more prednisone, separatetelephone encounter sent to Dr. Askew with request, patient aware. Patient verbalized he is aware of hospital follow-up on 06/01/[address] Askew, however he has difficulty finding a ride into the clinic, he reports he will work on getting an SUV to transport him to appointment. Patient aware his nebulizer is to be coming from [facility]. Patient verbalized that he is upset that everyone keeps saying he is non-compliant with his medications, he reports his girlfriend is responsible for his meds and gives them to him as prescribed. Blood work orders placed as recommended by [facility] discharge summary. CV: Denies problems Pulmonary: Denies problems SOB- on exertion Oxygen- 4L @ HS Nebulizer- Duoneb TID Inhaler -Albuterol prn, Advair BID Chills/Sweats/Fever:Denies chills/sweats Denies fever Appetite:Denies problems such as nausea, vomiting, burning, decreased appetite Current diet: Heart healthy, diabetic, with 1800ml fluid restriction. Bowel: denies problems Bladder: ostomy/indwelling catheter: fontaine catheter intact and patent per patient. Wound (If applicable): N/A Pain:Denies Sleep:Denies problems FUNCTIONAL STATUS: ADL'S: Needs Assistance With:N/A as pt is independent IADL'S: Needs Assistance With:Grocery Shopping, Cooking food, Routine Housework, and Taking medications Cognitive and Mental Health: denies problems, alert and oriented x 3, and able to communicate, understand instructions, process information. MEDICATION RECONCILIATION Medications: Discharge med list reviewed with patient or caregiver New medication(s) filled since hospitalization- Reports all medications taken as prescribed. Denies side effects OBJECTIVE N/a ASSESSMENT Medication Risk Assessment: No risks identified Did patient fail outpatient treatment? No Discharge instructions available for review? Yes PLAN Symptom Monitoring Interventions:Member/caregiver education - signs and symptoms to contact PrimaryCare (DO NOT DELETE-Three vaz symptoms patient is to report to PCP) 1. Chest pain/increased shortness of breath 2. Fever/chills/nausea/vomiting 3. Confusion, fall, increased weakness/fatigue, blood in urine or dark colored urine/foul smelling urine. Team PhysicianTenter Frame Operator of Care interventions/Action Plan: Medication reconciliation, Develop/confirm action plan for acute exacerbation, and 5 - 7 day follow-up with PCP in place - Date: 06/01/23 Educated on role of FARIDA completed with patient/caregiver. Educated patient/caregiver on patient right to have input on FARIDA plan of care. Verification of Home Health/DME if indicated: YES [facility] Identified Care Gaps: Yes Care Gaps closed this call: Appointment made or confirmed, Lab/radiology testing coordinated, Medication adherence, Plan of care optimization, Post discharge appointment, and Transition of Care follow-up communication Re-evaluation of Plan of Care and progress towards goals achievement: Patient education this visit: Verbal, Educated patient on importance of keeping follow-up appointments, monitoring for signs/symptoms as discussed above, and take medications as prescribed. Patient verbalized understanding of above education. Plan to follow-up as previously scheduled, instructed to call Primary Care Provider with change in symptoms or as needed before next follow-up, discharge needs met, verbalizes understanding and agrees with plan. Jo Mathis RN * Telephone Encounter - Jo Mathis RN - 05/27/2023 12:40 PM EDT Transitions of Care Note Attempt #1 Reason for Referral:Recent Admission Phone visit for follow up: FARIDA Admitted to: [facility], Date: 05/22/23 Discharged to: HOME, Date: 05/26/23 Diagnosis driving hospitalization: Acute exacerbation of COPD and catheter associated UTI. Attempt made for FARIDA call to patient, no answer, message left for patient to call back at [phone]. Also, left message for patient to call if they have any questions or concerns after hours or on the weekend before their follow-up appointment with their PCP. Reminded patient of follow-up appointment with Dr. Askew 06/01/23 @ 11am. Will attempt to call tomorrow. Jo Mathis RN documented in this encounter Plan of Treatment Upcoming Encounters Date Type Specialty Care Team Description 05/28/2023 [facility] [place] [address] [address] [facility] 06/01/2023 Office Visit Internal Medicine [facility], Roberto Lewis MD [address] [place] [address], [place] [address] Scheduled Orders Name Type Priority Associated Diagnoses Orde r Schedule CBC WITH WBC DIFFERENTIAL Lab Routine UTI (urinary tract infection) Expected: 05/27/2023 (Approximate), Expires: 05/27/2024 COMPREHENSIVE METABOLIC PANEL Lab Routine Type 2 diabetes mellitus with hemoglobin A1c goal of less than 8.0% (HCC) Expected: 05/27/2023 (Approximate), Expires: 05/26/2024 MAGNESIUM Lab Routine Coronary artery disease involving [place] coronary artery of [place] heart without angina pectoris Expected: 05/27/2023 (Approximate), Expires: 05/26/2024 PHOSPHORUS Lab Routine Coronary artery disease involving [place] coronary artery of [place] heart without angina pectoris Expected: 05/27/2023 (Approximate), Expires: 05/26/2024 Health Maintenance Due Date Last Done Comments DISCUSS TOBACCO CESSATION (REFER TO SMARTSET #5501) 1970 HIV Screening 1985 Pneumococcal Vaccine: Pediatrics (0 to 5 Years) and At-Risk Patients (6 to 64 Years) (2 - PCV) 05/22/2010 05/22/2009 Cologuard 2015 Fecal Occult Blood Test 2015 Sigmoidoscopy 2015 *ADVANCE DIRECTIVE NOT ON FILE 02/03/2020 LUNG CANCER SCREENING - USE SMARTSET [id number] 2020 02/10/2019, 07/19/2017, 05/09/2017, Additional history exists [...] this encounter Medical Devices Implanted Type Area Cutter Grinder Device Identifier Shelf Expiration Date Model / Serial / Lot Tube Flex 3.0x2.5 [id number] - [id number] Implanted:Qty: 1 on 12/07/2014 by Juancarlos Trinidad MD at [facility] Left: Finger LANDON : ORTHOPAEDICS 11/18/2015 [id number] / / [id number] documented as of this encounter Visit Diagnoses Diagnosis Type 2 diabetes mellitus with hemoglobin A1c goal of less than 8.0% ([facility])- Primary UTI (urinary tract infection) Urinary tract infection, site not specified Coronary artery disease involving [place] coronary artery of [place] heart without angina pectoris documented in this encounter Advance Directives Latest [...] the patient have Health Care Power of Derrick Builder? No Healthcare Agents on File Name Relationship Healthcare Agent Relationship Communication Estrella Seth Other - (no specific identity) Health Care Power of Derrick Builder Care Teams Trial Consultant Relationship Specialty Start Date End Date Roberto Askew MD [address] [place] [id number] PCP - General Internal Medicine 04/10/20 documented as of this encounter
--- OUTSIDE RECORDS SUMMARY | 2023-08-22 22:11 | External Medical Summary | Summary of Care ---
Author Name Unknown Organization [facility] Address [address] [place] [address] Phone [phone] Care Team Providers Care Clinical Informatics Director Name Role Phone Roberto Askew MD Primary Care Provider + Reason for Visit * Reason Onset Date Comments Medication Refill 05/12/2023 Furosemide Encounter Details Date Type Department Care Team Description 05/12/2023 Telephone General Internal Medicine [facility] [address] [facility] [place] [address] Roberto Askew MD [address] [place] [address] Medication Refill (Furosemide) Allergies Active Allergy Reactions Severity Noted Date [...] as of this encounter (statuses as of 05/12/2023) Medications Medication Sig Dispensed Refills Start Date [...] day as needed. 0 Active nystatin (NYSTOP) 375122 UNIT/GM powderIndications:Cut aneous candidiasis Apply topically to [...] OPD, group C, by GOLD 2017 classification ([facility]),COPD, group D, by GOLD 2017 classification ([facility]) USE 2 PUFFS BY MOUTH EVERY 4 HOURS NEEDED SHORT OF BREATH 6.7 g 5 11/24/2021 Active Magnesium Oxide 400 (241.3 Mg) MG Oral TabletIndications:Cor onary artery disease involving [place] coronary artery of [place] heart without angina pectoris Take by mouth [...] hemoglobin A1c goal of less than 8.0% ([facility]) Use as directed. 1 Kit 0 10/30/2022 Active Accu-Chek Guide In Vitro Strip (Glucose Blood)Indications:Typ e 2 diabetes mellitus with hemoglobin A1c goal of less than 8.0% ([facility]) Use to check sugars 3 times a day 100 Strip 1 10/30/2022 Active Accu-Chek Softclix LancetsIndications:Ty pe 2 diabetes mellitus with hemoglobin A1c goal of less than 8.0% ([facility]) Use to check sugars 3 [...] in the morning. Follow taper instructions from [facility]. 0 12/25/2022 Active guaiFENesin-Codeine 100-10 MG/5ML Oral [...] MG Oral TabletIndications:Cor onary artery disease involving [place] coronary artery of [place] heart without angina pectoris Take 1 Tablet by mouth in the morning. In the morning.. 90 Tablet 1 04/05/2023 Active Metoprolol Succinate ER 50 MG Oral Tablet Extended Release 24 Hour (toPROL XL)Indications:Harman ry artery disease involving [place] coronary artery of [place] heart without angina pectoris TAKE 1 & [...] as of this encounter (statuses as of 05/12/2023) Active Problems Problem Noted Date Bandemia 10/24/2021 [...] subarachnoid hemorrhage 10/04 Coronary artery disease involving [place] heart without angina pectoris 10/04/2020 COPD, group [...] as of this encounter (statuses as of 05/12/2023) Resolved Problems Problem Noted Date Resolved Date [...] Calculus of kidney 08/20/2015 02/01/2018 Overview: right, [place] CT Vitamin D deficiency 01/31/2015 02/01/2018 Body [...] as of this encounter (statuses as of 05/12/2023) Immunizations Name Administration Dates Next Due COVID-19 mRNA, LNP-s, No Pre serve, 2-Dose Series ([employer]) 01/02/2021,12/05/2020 DTP Vaccine 07/19/2017,04/03/2014 Hepatitis B, 20+ [...] encounter Miscellaneous Notes * Telephone Encounter - Yanique Marrufo LPN - 05/12/2023 1:27 PM EDT To discuss at appointment with Dr. Askew today, per other TE * Telephone Encounter - Janet Allen - 05/12/2023 12:17 PM EDT Received Fax: [facility] [phone] /[phone] fax Rx for Furosemide 40 mg tab dated 12/03 and pt also has Torsemide 100mg filled at retail 05/08. Please clarify current TX. Send new RX if torsemide 100mg iscurrent.\\ documented in this encounter Plan of Treatment Upcoming Encounters Date Type Specialty Care Team Description 05/12/2023 Office Visit Internal Medicine Roberto Askew MD [address] [place] [address], [place] [address] 05/13/2023 Laboratory Laboratory Processing G[facility], [facility] Mobile Home Draw [address] [place] [place] [address] 05/13/2023 [facility] [address] [facility] [place] [address] Health Maintenance Due Date Last Done Comments DISCUSS TOBACCO CESSATION (REFER TO SMARTSET #0241) 1970 HIV Screening 1985 Pneumococcal Vaccine: Pediatrics (0 to 5 Years) and At-Risk Patients (6 to 64 Years) (2 - PCV) 05/22/2010 05/22/2009 Cologuard 2015 Fecal Occult Blood Test 2015 Sigmoidoscopy 2015 *ADVANCE DIRECTIVE NOT ON FILE 02/03/2020 LUNG CANCER SCREENING - USE SMARTSET [id number] 2020 02/10/2019, 07/19/2017, 05/09/2017, Additional history exists [...] this encounter Medical Devices Implanted Type Area Research Chief Engineer Device Identifier Shelf Expiration Date Model / Serial / Lot Tube Flex 3.0x2.5 [id number] - [id number] Implanted:Qty: 1 on 12/07/2014 by Juancarlos Trinidad MD at [facility] Left: Finger [employer] : ORTHOPAEDICS 11/18/2015 [id number] / / [id number] documented as of this encounter Advance Directives [...] the patient have Health Care Power of Entry Level Installation Technician? No Healthcare Agents on File Name Relationship Healthcare Agent Relationship Communication Estrella Seth Other - (no specific identity) Health Care Power of Entry Level Installation Technician Care Teams Clinical Informatics Director Relationship Specialty Start Date End Date Roberto Askew MD [address] [place] [address], [place] [address] PCP - General Internal Medicine 04/10/20 documented as of this encounter
--- OUTSIDE RECORDS SUMMARY | 2023-08-22 22:11 | External Medical Summary ---
Author Name Unknown Address Unknown Organization [facility] [address] [place] [address] Laboratory Report Ordering Provider Test Date Status SELINA PELAYO 05/13/2023 08:04:00 Final Warfarin Therapy
INR: 2 .0-3.0 conventional anticoagulation
INR: 2.5- 3.5 high intensity anticoagulation Observation Date Value Abnormality Reference (Units ) Status PT 05/13/2023 08:04:00 14.6 11.6-15.2 (seconds) Final INR 05/13/2023 08:04:00 1.1 0.8-1.2 Final Performing Location [facility] [address] [place] [address]
--- OUTSIDE RECORDS SUMMARY | 2023-08-22 22:11 | External Medical Summary | Summary of Care ---
Author Name Unknown Organization [facility] Address [address] [place] [address] Phone [phone] Care Team Providers Care Suction Operator Name Role Phone Roberto Griffin MD Primary Care Provider + Reason for Visit * Reason Comments eRx-Medication Refill Encounter Details Date Type Department Care Team Description 05/10/2023 Refill General Internal Medicine [facility] [address] [place] [address] Roberto Griffin MD [address] [place] [address] Hypokalemia Allergies Active Allergy Reactions Severity Noted Date [...] as of this encounter (statuses as of 05/11/2023) Medications Medication Sig Dispensed Refills Start Date [...] day as needed. 0 Active nystatin (NYSTOP) 964243 UNIT/GM powderIndications:C utaneous candidiasis Apply topically to [...] :COPD, group C, by GOLD 2017 classification ([facility]),COPD, group D, by GOLD 2017 classification ([facility]) USE 2 PUFFS BY MOUTH EVERY 4 HOURS NEEDED SHORT OF BREATH 6.7 g 5 2 Active Magnesium Oxide 400 (241.3 Mg) MG Oral TabletIndications:C oronary artery disease involving [place] coronary artery of [place] heart without angina pectoris Take by mouth 400 mg in the morning. 30 Tablet 11 2 Active Insulin Glargine 100 UNIT/ML Subcutaneous Solution Pen-injector (Lantus) Inject under the skin 50 Units before bedtime. 10 Each 5 2 Active Additional Information Patient not taking.Reported on [...] the morning. 90 Capsule 1 3 Active Furosemide 40 MG Oral Tablet (Lasix) Take 1 Tablet by mouth in the morning and 1 Tablet before bedtime. 180 Tablet 2 3 Active Ondansetron HCl 4 [...] FOR NAUSEA 20 Tablet 1 3 Active predniSONE 10 MG Oral Tablet (Deltasone) Take 1 Tablet by mouth in the morning. Follow taper instructions from [facility]. 0 3 Active guaiFENesin-Codeine 100-10 MG/5ML Oral Syrup [...] MG Oral TabletIndications:C oronary artery disease involving [place] coronary artery of [place] heart without angina pectoris Take 1 Tablet by mouth in the morning. In the morning.. 90 Tablet 1 3 Active Metoprolol Succinate ER 50 MG Oral Tablet Extended Release 24 Hour (toPROL XL)Indications:Freddie nary artery disease involving [place] coronary artery of [...] AT BEDTIME 180 Tablet 2 3 Active Potassium Chloride Terra ER 20 MEQ Oral Tablet Extended ReleaseIndications: Hypokalemia TAKE ONE TABLET BY MOUTH EVERY MORNING AND AT BEDTIME 60 Tablet 3 3 023 Discontinued documented as of this encounter (statuses as of 05/11/2023) Active Problems Problem Noted Date Bandemia 10/24/2021 [...] as of this encounter (statuses as of 05/11/2023) Resolved Problems Problem Noted Date Resolved Date [...] of kidney 08/20/2015 02/01/2018 Overview: right, [place] CT Vitamin D deficiency 01/31/2015 02/01/2018 Body [...] as of this encounter (statuses as of 05/11/2023) Immunizations Name Administration Dates Next Due COVID-19 mRNA, LNP-s, No Pre serve, 2-Dose Series ([employer]) 01/02/2021,12/05/2020 DTP Vaccine 07/19/2017,04/03/2014 Hepatitis B, [...] encounter Miscellaneous Notes * Telephone Encounter - Joey Cooper RPh - 05/11/2023 11:00 AM EDTSigned Prescriptions: Disp Refills Potassium Chloride Terra ER 20 MEQ Oral Tab*180 Ta*2 Sig: TAKE ONE TABLET EVERY MORNING AND AT BEDTIMEAuthorizing Provider: ROBERTO GRIFFIN User: JOEY COOPER documented in this encounter Plan of Treatment Upcoming Encounters Date Type Specialty Care Team Description 05/12/2023 Office Visit Internal Medicine Roberto Griffin MD [address] [place] [address] Health Maintenance Due Date Last Done Comments DISCUSS TOBACCO CESSATION (REFER TO SMARTSET #1704) 1970 HIV Screening 1985 Pneumococcal Vaccine: Pediatrics (0 to 5 Years) and At-Risk Patients (6 to 64 Years) (2 - PCV) 05/22/2010 05/22/2009 Cologuard 2015 Fecal Occult Blood Test 2015 Sigmoidoscopy 2015 *ADVANCE DIRECTIVE NOT ON FILE 02/03/2020 LUNG CANCER SCREENING - USE SMARTSET 80218 2020 02/10/2019, 07/19/2017, 05/09/2017, Additional history exists [...] this encounter Medical Devices Implanted Type Area Small Products Assembler Device Identifier Shelf Expiration Date Model / Serial / Lot Tube Flex 3.0x2.5 [id number] - [id number] Implanted:Qty: 1 on 12/07/2014 by Juancarlos Trinidad MD at [facility] Left: Finger [employer] : ORTHOPAEDICS 11/18/2015 [id number] / / [id number] documented as of this encounter Visit Diagnoses Diagnosis Hypokalemia Hypopotassemia documented in this encounter Advance Directives Latest [...] the patient have Health Care Power of Penology Teacher? No Healthcare Agents on File Name Relationship Healthcare Agent Relationship Communication Estrella Seth Other - (no specific identity) Health Care Power of Penology Teacher Care Teams Suction Operator Relationship Specialty Start Date End Date Roberto Griffin MD [address] [place] [address] PCP - General Internal Medicine 04/10/20 documented as of this encounter
--- OUTSIDE RECORDS SUMMARY | 2023-08-22 22:11 | External Medical Summary | Summary of Care ---
Author Name Unknown Organization [facility] Address [address] [place] [address] Phone [phone] Care Team Providers Care Composite Science Teacher Name Role Phone Roberto Askew MD Primary Care Provider + Reason for Visit * Reason Comments Dosage Adjustment Via Phone (anticoag Cl inic) Encounter Details Date Type Department Care Team Description 05/13/2023 Anticoagulation Pharmacy Call Center [address] [place] [address] [facility] [address] [facility] [address] History of pulmonary embolism* Allergies Active Allergy [...] as of this encounter (statuses as of 05/13/2023) Medications Medication Sig Dispensed Refills Start Date [...] day as needed. 0 Active nystatin (NYSTOP) 624228 UNIT/GM powderIndications:Cut aneous candidiasis Apply topically to [...] MG Oral TabletIndications:Cor onary artery disease involving [place] coronary artery of [place] heart without angina pectoris Take by mouth [...] the morning. Follow taper instructions from [facility]. 0 12/25/2022 Active guaiFENesin-Codeine 100-10 MG/5ML [...] MG Oral TabletIndications:Cor onary artery disease involving [place] coronary artery of [place] heart without angina pectoris Take 1 Tablet by mouth in the morning. In the morning.. 90 Tablet 1 04/05/2023 Active Metoprolol Succinate ER 50 MG Oral Tablet Extended Release 24 Hour (toPROL XL)Indications:Harman ry artery disease involving [place] coronary artery of [place] heart without angina pectoris TAKE 1 & [...] as of this encounter (statuses as of 05/13/2023) Active Problems Problem Noted Date Bandemia 10/24/2021 [...] 01/24/2021 Opioid dependence, uncomplicated 021 History of [place] (myocardial infarction) Morbid obesity with BMI of 50.0-59.9, ad ult 10/04/2020 History of subdural hematoma 10/04/2020 Gastroesophageal reflux disease without esophagitis 10/04/2020 History of subarachnoid hemorrhage 10/04 Coronary artery disease involving [place] heart without angina pectoris 10/04/2020 COPD, group [...] as of this encounter (statuses as of 05/13/2023) Resolved Problems Problem Noted Date Resolved Date [...] Calculus of kidney 08/20/2015 02/01/2018 Overview: right, [place] CT Vitamin D deficiency 01/31/2015 02/01/2018 Body [...] as of this encounter (statuses as of 05/13/2023) Immunizations Name Administration Dates Next Due COVID-19 [...] Progress Notes * Keren Sanchez RPh - 05/13/2023 1:57 PM EDT Agree with plan. Keren Sanchez Rph, Pharm.D. Clinical Pharmacist Telepharmacy [phone] 05/13/2023,1:57 PM documented in this encounter Plan of Treatment Upcoming Encounters Date Type Specialty Care Team Description 05/18/2023 Anticoagulation Pharmacy Telepharmacy, [facility] [address] [place] [address] Health Maintenance Due Date Last Done Comments DISCUSS TOBACCO CESSATION (REFER TO SMARTSET #1521) 1970 HIV Screening 1985 Pneumococcal Vaccine: Pediatrics [...] this encounter Medical Devices Implanted Type Area Family And Consumer Education Teacher Device Identifier Shelf Expiration Date Model / Serial / Lot Tube Flex 3.0x2.5 [id number] - [id number] Implanted:Qty: 1 on 12/07/2014 by Juancarlos Trinidad MD at [facility] Left: Finger [employer] : ORTHOPAEDICS 11/18/2015 [id number] / / [id number] documented as of this encounter Visit Diagnoses [...] the patient have Health Care Power of Condominium Association Manager? No Healthcare Agents on File Name Relationship Healthcare Agent Relationship Communication Estrella Seth Other - (no specific identity) Health Care Power of Condominium Association Manager Care Teams Composite Science Teacher Relationship Specialty Start Date End Date Roberto Askew MD [address] [place] [address] PCP - General Internal Medicine 04/10/20 documented as of this encounter
--- OUTSIDE RECORDS SUMMARY | 2023-08-22 22:11 | External Medical Summary | Summary of Care ---
Author Name Unknown Organization [facility] Address [address] [place] [address] Phone [phone] Care Team Providers Care Cable Engineer Name Role Phone Roberto Askew MD Primary Care Provider + Reason for Visit * Reason Onset Date Comments Advice 05/11/2023 Encounter Details Date Type Department Care Team Description 05/11/2023 Telephone General Internal Medicine [facility] [address] [facility] [place] [address] Roberto Askew MD [address] [place] [address] Advice Allergies Active Allergy Reactions Severity Noted Date [...] day as needed. 0 Active nystatin (NYSTOP) 935691 UNIT/GM powderIndications:Cu taneous candidiasis Apply topically to [...] C, by GOLD 2017 classification ([facility]),COPD, group D, by GOLD 2017 classification ([facility]) USE 2 PUFFS BY MOUTH EVERY 4 HOURS NEEDED SHORT OF BREATH 6.7 g 5 2 Active Magnesium Oxide 400 (241.3 Mg) MG Oral TabletIndications:Co ronary artery disease involving [place] coronary artery of [place] heart without angina pectoris Take by mouth [...] in the morning. Follow taper instructions from [facility]. 0 3 Active guaiFENesin-Codeine 100-10 MG/5ML Oral [...] MG Oral TabletIndications:Co ronary artery disease involving [place] coronary artery of [place] heart without angina pectoris Take 1 Tablet by mouth in the morning. In the morning.. 90 Tablet 1 3 Active Metoprolol Succinate ER 50 MG Oral Tablet Extended Release 24 Hour (toPROL XL)Indications:Coron uziel artery disease involving [place] coronary artery of [place] heart without angina pectoris TAKE 1 & [...] the morning. 5 Tablet 0 3 Active Furosemide 40 MG Oral Tablet (Lasix) Take 1 Tablet by mouth in the morning and 1 Tablet before bedtime. 180 Tablet 2 3 05/11/20 23 Discontinu ed(Medicat ion List Clean Up) [...] 01/24/2021 Opioid dependence, uncomplicated 021 History of [place] (myocardial infarction) Morbid obesity with BMI of 50.0-59.9, ad ult 10/04/2020 History of subdural hematoma 10/04/2020 Gastroesophageal reflux disease without esophagitis 10/04/2020 History of subarachnoid hemorrhage 10/04 Coronary artery disease involving [place] heart without angina pectoris 10/04/2020 COPD, group [...] Calculus of kidney 08/20/2015 02/01/2018 Overview: right, [place] CT Vitamin D deficiency 01/31/2015 02/01/2018 Body [...] mRNA, LNP-s, No Pre serve, 2-Dose Series ([employer] 01/02/2021,12/05/2020 DTP Vaccine 07/19/2017,04/03/2014 Hepatitis B, 20+ [...] encounter Miscellaneous Notes * Telephone Encounter - Cathy Purdy CPhT - 05/12/2023 9:07 AM EDT [facility] pharmacy calling with questions regarding furosemide. Advised PCP's previous message. Pharmacy made aware and will d/c furosemide. Thank you, Cathy Purdy Internal Medicine Veterinary Technician [facility] ([facility]) (Formerly Telepharmacy) 05/12/2023,9:33 AM * Telephone Encounter - Roberto Askew MD - 05/11/2023 4:06 PM EDT We need to discuss at hospital follow up. However, on D/C instructions he was to stop furosemide/lasix and take torsemide 50 mg daily instead so I would stop lasix. Potassium was already sent. * Telephone Encounter - DARIA Reynaga - 05/11/2023 8:46 AM EDT Maya from [facility] mail order pharmacy calling. Prescription for furosemide 40 mg. Recently filled toresemide at retail. Wants to verify which one pt should be taking. Also needs refill for potassium chloride ER 20 mEq microtablets [phone]. documented in this encounter Plan of Treatment Upcoming Encounters Date Type Specialty Care Team Description 05/12/2023 Office Visit Internal Medicine Roberto Askew MD [address] [place] [address] 05/13/2023 Laboratory Laboratory Processing [facility] Mobile Home Draw [address] [place] [address] 05/13/2023 [facility] [address] [place] [address] Health Maintenance Due Date Last Done Comments DISCUSS TOBACCO CESSATION (REFER TO SMARTSET #4881) 1970 HIV Screening 1985 Pneumococcal Vaccine: Pediatrics (0 to 5 Years) and At-Risk Patients (6 to 64 Years) (2 - PCV) 05/22/2010 05/22/2009 Cologuard 2015 Fecal Occult Blood Test 2015 Sigmoidoscopy 2015 *ADVANCE DIRECTIVE NOT ON FILE 02/03/2020 LUNG CANCER SCREENING - USE SMARTSET [id number] 2020 02/10/2019, 07/19/2017, 05/09/2017, Additional history exists [...] this encounter Medical Devices Implanted Type Area Assistant Signal Maintainer Device Identifier Shelf Expiration Date Model / Serial / Lot Tube Flex 3.0x2.5 [id number] - [id number] Implanted:Qty: 1 on 12/07/2014 by Juancarlos Trinidad MD at [facility] Left: Finger [employer] : ORTHOPAEDICS 11/18/2015 [id number] / / [id number] documented as of this encounter Advance Directives [...] the patient have Health Care Power of Glass Presser? No Healthcare Agents on File Name Relationship Healthcare Agent Relationship Communication Estrella Seth Other - (no specific identity) Health Care Power of Glass Presser Care Teams Cable Engineer Relationship Specialty Start Date End Date Roberto Askew MD [address] [place] [address], [place] [address] PCP - General Internal Medicine 04/10/20 documented as of this encounter
--- OUTSIDE RECORDS SUMMARY | 2023-08-22 22:11 | External Medical Summary | Summary of Care ---
Author Name Unknown Organization [facility] Address [address] [place] [address] Phone [phone] Care Team Providers Care Subway Car Repairer Name Role Phone Roberto Askew MD Primary Care Provider + Reason for Visit * Reason Onset Date Comments Advice 05/11/2023 Encounter Details Date Type Department Care Team Description 05/11/2023 Telephone General Internal Medicine [facility] [address] [facility] [place] [address] Roberto Askew MD [address] [place] [address] Advice Allergies Active Allergy Reactions Severity Noted [...] day as needed. 0 Active nystatin (NYSTOP) 582630 UNIT/GM powderIndications:Cu taneous candidiasis Apply topically to [...] COPD, group C, by GOLD 2017 classification ([facility]),COPD, group D, by GOLD 2017 classification ([facility]) USE 2 PUFFS BY MOUTH EVERY 4 HOURS NEEDED SHORT OF BREATH 6.7 g 5 2 Active Magnesium Oxide 400 (241.3 Mg) MG Oral TabletIndications:Co ronary artery disease involving kaibab coronary artery of kaibab heart without angina pectoris Take by mouth [...] the morning. Follow taper instructions from [facility]. 0 3 Active guaiFENesin-Codeine 100-10 MG/5ML [...] MG Oral TabletIndications:Co ronary artery disease involving kaibab coronary artery of kaibab heart without angina pectoris Take 1 Tablet by mouth in the morning. In the morning.. 90 Tablet 1 3 Active Metoprolol Succinate ER 50 MG Oral Tablet Extended Release 24 Hour (toPROL XL)Indications:Coron uziel artery disease involving kaibab coronary artery of kaibab heart without angina pectoris TAKE 1 & [...] 01/24/2021 Opioid dependence, uncomplicated 021 History of [place] (myocardial infarction) Morbid obesity with BMI of 50.0-59.9, ad ult 10/04/2020 History of subdural hematoma 10/04/2020 Gastroesophageal reflux disease without esophagitis 10/04/2020 History of subarachnoid hemorrhage 10/04 Coronary artery disease involving kaibab heart without angina pectoris 10/04/2020 COPD, group [...] Calculus of kidney 08/20/2015 02/01/2018 Overview: right, [place] CT Vitamin D deficiency 01/31/2015 02/01/2018 Body [...] mRNA, LNP-s, No Pre serve, 2-Dose Series ([employer]) 01/02/2021,12/05/2020 DTP Vaccine 07/19/2017,04/03/2014 Hepatitis B, 20+ [...] Purdy CPhT - 05/12/2023 9:07 AM EDT [facility] pharmacy calling with questions regarding furosemide. Advised PCP's previous message. Pharmacy made aware and will d/c furosemide. Thank you, Cathy Purdy Registered Respiratory Technician [facility] ([facility]) (Formerly [...] - 05/11/2023 8:46 AM EDT Maya from [facility] mail order pharmacy calling. Prescription for furosemide 40 mg. Recently filled toresemide at retail. Wants to verify which one pt should be taking. Also needs refill for potassium chloride ER 20 mEq microtablets [phone]. documented in this encounter Plan of Treatment Upcoming Encounters Date Type Specialty Care Team Description 05/12/2023 Office Visit Internal Medicine Roberto Askew MD [address] [place] [address] 05/13/2023 Laboratory Laboratory Processing [facility] Mobile Home Draw [address] [place] [address] 05/13/2023 [facility] [address] [place] [address] Health Maintenance Due Date Last Done Comments DISCUSS TOBACCO CESSATION (REFER TO SMARTSET #0081) 1970 HIV Screening 1985 Pneumococcal Vaccine: Pediatrics (0 to 5 Years) and At-Risk Patients (6 to 64 Years) (2 - PCV) 05/22/2010 05/22/2009 Cologuard 2015 Fecal Occult Blood Test 2015 Sigmoidoscopy 2015 *ADVANCE DIRECTIVE NOT ON FILE 02/03/2020 LUNG CANCER SCREENING - USE SMARTSET [id number] 2020 02/10/2019, 07/19/2017, 05/09/2017, Additional history exists [...] this encounter Medical Devices Implanted Type Area Departmental Buyer Device Identifier Shelf Expiration Date Model / Serial / Lot Tube Flex 3.0x2.5 [id number] - [id number] Implanted:Qty: 1 on 12/07/2014 by Juancarlos Trinidad MD at [facility] Left: Finger [employer] : ORTHOPAEDICS 11/18/2015 [id number] / / [id number] documented as of this encounter Advance Directives [...] the patient have Health Care Power of Investment Accounting Clerk? No Healthcare Agents on File Name Relationship Healthcare Agent Relationship Communication Estrella Seth Other - (no specific identity) Health Care Power of Investment Accounting Clerk Care Teams Subway Car Repairer Relationship Specialty Start Date End Date Roberto Askew MD [address] [place] [address], [place] [address] PCP - General Internal Medicine 04/10/20 documented as of this encounter
--- OUTSIDE RECORDS SUMMARY | 2023-08-22 22:11 | External Medical Summary | Summary of Care ---
Author Name Unknown Organization [facility] Address [address] [place] [address] Phone [phone] Care Team Providers Care Flagger Name Role Phone Roberto Askew MD Primary Care Provider + Reason for Visit * Reason Onset Date Comments Hospital Follow-Up 05/10/2023 Encounter Details Date Type Department Care Team Description 05/10/2023 Telephone Ancillary Maya Orr [place] [address] [place] [address] Kimmy Hill, ALEXANDER Hospital Follow-Up Allergies Active Allergy Reactions Severity [...] day as needed. 0 Active nystatin (NYSTOP) 484347 UNIT/GM powderIndications:Cut aneous candidiasis Apply topically to [...] OPD, group C, by GOLD 2017 classification ([facility]),COPD, group D, by GOLD 2017 classification ([facility]) USE 2 PUFFS BY MOUTH EVERY 4 HOURS NEEDED SHORT OF BREATH 6.7 g 5 11/24/2021 Active Magnesium Oxide 400 (241.3 Mg) MG Oral TabletIndications:Cor onary artery disease involving ak chin coronary artery of ak chin heart without angina pectoris Take by mouth [...] hemoglobin A1c goal of less than 8.0% ([facility]) Use as directed. 1 Kit 0 10/30/2022 Active Accu-Chek Guide In Vitro Strip (Glucose Blood)Indications:Typ e 2 diabetes mellitus with hemoglobin A1c goal of less than 8.0% ([facility]) Use to check sugars 3 times a day 100 Strip 1 10/30/2022 Active Accu-Chek Softclix LancetsIndications:Ty pe 2 diabetes mellitus with hemoglobin A1c goal of less than 8.0% ([facility]) Use to check sugars 3 times [...] the morning. Follow taper instructions from [facility]. 0 12/25/2022 Active guaiFENesin-Codeine 100-10 MG/5ML [...] MG Oral TabletIndications:Cor onary artery disease involving ak chin coronary artery of ak chin heart without angina pectoris Take 1 Tablet by mouth in the morning. In the morning.. 90 Tablet 1 04/05/2023 Active Metoprolol Succinate ER 50 MG Oral Tablet Extended Release 24 Hour (toPROL XL)Indications:Harman ry artery disease involving ak chin coronary artery of ak chin heart without angina pectoris TAKE 1 & [...] the morning. 90 Tablet 3 05/05/2023 Active documented as of this encounter (statuses [...] subarachnoid hemorrhage 10/04 Coronary artery disease involving ak chin heart without angina pectoris 10/04/2020 COPD, group [...] Calculus of kidney 08/20/2015 02/01/2018 Overview: right, [place] Vitamin D deficiency 01/31/2015 02/01/2018 Body [...] Miscellaneous Notes * Telephone Encounter - Kimmy Reyna RN - 05/12/2023 11:31 AM EDT Transitions of Care Note Reason for Referral:Recent Admission Phone visit for follow up: FARIDA # 2 Left message Admitted to: [facility], Date: 05/04/2023 Discharged to: Home Self Care, Date: 05/08/2023 Diagnosis driving hospitalization: Hypokalemia * Telephone Encounter - Kimmy Reyna RN - 05/10/2023 12:09 PM EDT Transitions of Care Note Reason for Referral:Recent Admission Phone visit for follow up: FARIDA FARIDA # 1. Left message asking patient to call back at [phone] to discuss recent hospitalization, medications and follow up appointments.. If patient does not call back today will attempt to contact again tomorrow 05/11 Admitted to: [facility], Date: 05/04/2023 Discharged to: Home Self Care, Date: 05/08/2023 Diagnosis driving hospitalization: Hypokalemia documented in this encounter Plan of Treatment Upcoming Encounters Date Type Specialty Care Team Description 05/12/2023 Office Visit Internal Medicine Roberto Askew MD [address] [place] [address], [place] [address] 05/13/2023 Laboratory [facility] Mobile Home Draw [address] [place] [address] 05/13/2023 [facility] [address] [facility] [place] [address] Health Maintenance Due Date Last Done Comments DISCUSS TOBACCO CESSATION (REFER TO SMARTSET #3291) 1970 HIV Screening 1985 Pneumococcal Vaccine: Pediatrics (0 to 5 Years) and At-Risk Patients (6 to 64 Years) (2 - PCV) 05/22/2010 05/22/2009 Cologuard 2015 Fecal Occult Blood Test 2015 Sigmoidoscopy 2015 *ADVANCE DIRECTIVE NOT ON FILE 02/03/2020 LUNG CANCER SCREENING - USE SMARTSET [id number] 2020 02/10/2019, 07/19/2017, 05/09/2017, Additional history exists [...] this encounter Medical Devices Implanted Type Area Projection Welding Machine Operator Device Identifier Shelf Expiration Date Model / Serial / Lot Tube Flex 3.0x2.5 [id number] - [id number] Implanted:Qty: 1 on 12/07/2014 by Juancarlos Trinidad MD at [facility] Left: Finger [employer]ON : ORTHOPAEDICS 11/18/2015 [id number] / / [id number] documented as of this encounter Advance Directives [...] the patient have Health Care Power of Conceptor? No Healthcare Agents on File Name Relationship Healthcare Agent Relationship Communication Estrella Seth Other - (no specific identity) Health Care Power of Conceptor Care Teams Flagger Relationship Specialty Start Date End Date Roberto Askew MD [address] [place] [address], [place] [address] PCP - General Internal Medicine 04/10/20 documented as of this encounter
--- OUTSIDE RECORDS SUMMARY | 2023-08-22 22:11 | External Medical Summary | Summary of Care ---
Author Name Unknown Organization [facility] Address [address] [place] [address] Phone [phone] Care Team Providers Care Machinery Dismantler Name Role Phone Roberto Askew MD Primary Care Provider + Reason for Visit * Reason Onset Date Comments Hospital Follow-Up 05/12/2023 Encounter Details Date Type Department Care Team Description 05/12/2023 Telephone Ancillary Maya Orr [place] [address] [place] [address] Kimmy Hill, ALEXANDER Hospital Follow-Up Allergies Active [...] day as needed. 0 Active nystatin (NYSTOP) 047412 UNIT/GM powderIndications:Cut aneous candidiasis Apply topically to [...] C, by GOLD 2017 classification ([facility]),COPD, group D, by GOLD 2017 classification ([facility]) USE 2 PUFFS BY MOUTH EVERY 4 HOURS NEEDED SHORT OF BREATH 6.7 g 5 11/24/2021 Active Magnesium Oxide 400 (241.3 Mg) MG Oral TabletIndications:Cor onary artery disease involving [place]at coronary artery of [place] heart without angina pectoris Take by mouth [...] goal of less than 8.0% ([facility]) Use as directed. 1 Kit 0 10/30/2022 Active Accu-Chek Guide In Vitro Strip (Glucose Blood)Indications:Typ e 2 diabetes mellitus with hemoglobin A1c goal of less than 8.0% ([facility]) Use to check sugars 3 times a day 100 Strip 1 10/30/2022 Active Accu-Chek Softclix LancetsIndications:Ty pe 2 diabetes mellitus with hemoglobin A1c goal of less than 8.0% ([facility]) Use to check sugars 3 times [...] morning. Follow taper instructions from [facility]. 0 12/25/2022 Active guaiFENesin-Codeine 100-10 MG/5ML Oral [...] MG Oral TabletIndications:Cor onary artery disease involving [place]utat coronary artery of [place] heart without angina pectoris Take 1 Tablet by mouth in the morning. In the morning.. 90 Tablet 1 04/05/2023 Active Metoprolol Succinate ER 50 MG Oral Tablet Extended Release 24 Hour (toPROL XL)Indications:Harman ry artery disease involving [place]utat coronary artery of yakutat heart without angina pectoris TAKE 1 & [...] 01/24/2021 Opioid dependence, uncomplicated 021 History of [place] (myocardial infarction) Morbid obesity with BMI of 50.0-59.9, ad ult 10/04/2020 History of subdural hematoma 10/04/2020 Gastroesophageal reflux disease without esophagitis 10/04/2020 History of subarachnoid hemorrhage 10/04 Coronary artery disease involving yakutat heart without angina pectoris 10/04/2020 COPD, group [...] Calculus of kidney 08/20/2015 02/01/2018 Overview: right, [place] CT Vitamin D deficiency 01/31/2015 02/01/2018 [...] mRNA, LNP-s, No Pre serve, 2-Dose Series ([employer]) 01/02/2021,12/05/2020 DTP Vaccine 07/19/2017,04/03/2014 Hepatitis B, 20+ [...] Encounter - Kimmy Reyna RN - 05/12/2023 2:14 PM EDT Pt called to cancel his [address] Oliveira due to transportation issues. He states that he will call in next week for an appointment. * Telephone Encounter - Kimmy Reyna RN - 05/12/2023 2:04 PM EDT Images from the original note were not included. Transitions of Care Note Reason for Referral:Recent Admission Phone visit for follow up: FARIDA Admitted to: [facility], Date: 05/04/2023 Discharged to: Home Self Care, Date: 05/12/2023 Diagnosis driving hospitalization: Hypokalemia Source/Contact: Patient SUBJECTIVE Consent: Verbal consent for review of hospital discharge: Yes REVIEW OF SYSTEMS Patient/Other Reports: Current patient/caregiver problems or concerns: "feeling pretty good, but I did pass out twice on Wednesday when I got home from the hospital" CV: Denies problems Pulmonary: Denies problems Chills/Sweats/Fever:Denies chills/sweats Denies fever Appetite:Denies problems such as nausea, vomiting, burning, decreased appetite Current diet: Carb count Bowel: denies problems Bladder: denies problems Wound (If applicable): L chest- loop recorder site. "Looks fine" No drainage, or odor noted Pain:Denies Sleep:Denies problems FUNCTIONAL STATUS: ADL'S: Needs Assistance With:N/A as pt is independent IADL'S: Needs Assistance With:N/A as pt is independent Cognitive and Mental Health: denies problems, alert and oriented x 3, and able to communicate, understand instructions, process information. MEDICATION RECONCILIATION Medications: Discharge med list reviewed with patient or caregiver New medication(s) filled since hospitalization- see below Discontinued medication(s) since hospitalization- see below Reports all medications taken as prescribed. ASSESSMENT Medication Risk Assessment: PolyPharmacy Did patient fail outpatient treatment? Yes Discharge instructions available for review? Yes PLAN Symptom Monitoring Interventions:Member/caregiver education - signs and symptoms to contact PrimaryCare (DO NOT DELETE-Three vaz symptoms patient is to report to PCP) 1. Cough, wheezing, SOB 2. Elevated temp, chills, sweats 3. Edema of lower extremities with pain Virtual Customer AssistantDemolition Engineer of Care interventions/Action Plan: Patient was to come in for his post hospital discharge visit with Dr. Askew, but had to cancelhis appointment due to transportation issues. He will make appointment next week Educated on role of FARIDA completed with patient/caregiver. Educated patient/caregiver on patient right to have input on FARIDA plan of care. Verification of Home Health/DME if indicated: YES n/a Identified Care Gaps: Yes pa Care Gaps closed this call: Transition of Care follow-up communication and Other: patient will callin next week to make his post hospital discharge appointment. Re-evaluation of Plan of Care and progress towards goals achievement: Patient education this visit: Verbal, encouraged to follow up with cardiology Plan to discharge needs met, verbalizes understanding and agrees with plan. Kimmy Reyna, ALEXANDER documented in this encounter Plan of Treatment Upcoming Encounters Date Type Specialty Care Team Description 05/13/2023 Laboratory Laboratory Processing [facility] Mobile Home Draw [address] [place] [address] 05/13/2023 [facility] [address] [facility] [place] [facility] Health Maintenance Due Date Last Done Comments DISCUSS TOBACCO CESSATION (REFER TO SMARTSET #2002) 1970 HIV Screening 1985 Pneumococcal Vaccine: Pediatrics (0 to 5 Years) and At-Risk Patients (6 to 64 Years) (2 - PCV) 05/22/2010 05/22/2009 Cologuard 2015 Fecal Occult Blood Test 2015 Sigmoidoscopy 2015 *ADVANCE DIRECTIVE NOT ON FILE 02/03/2020 LUNG CANCER SCREENING - USE SMARTSET [id number] 2020 02/10/2019, 07/19/2017, 05/09/2017, Additional history exists [...] 09/18/2022 03/19/2022, 0305/2022, 06/05/2021, Additional history exists Influenza Vaccine (FLU [...] this encounter Medical Devices Implanted Type Area Shield Cleaner Device Identifier Shelf Expiration Date Model / Serial / Lot Tube Flex 3.0x2.5 [id number] - [id number] Implanted:Qty: 1 on 12/07/2014 by Juancarlos Trinidad MD at [facility] Left: Finger [employer] : ORTHOPAEDICS 11/18/2015 [id number] / / [id number] documented as of this encounter Advance Directives [...] the patient have Health Care Power of Farm Machine Tender? No Healthcare Agents on File Name Relationship Healthcare Agent Relationship Communication Estrella Seth Other - (no specific identity) Health Care Power of Farm Machine Tender Care Teams Machinery Dismantler Relationship Specialty Start Date End Date Roberto Askew MD [address] [place] [address], [place] [address] PCP - General Internal Medicine 04/10/20 documented as of this encounter
--- OUTSIDE RECORDS SUMMARY | 2023-08-22 22:11 | External Medical Summary | Summary of Care ---
Author Name Unknown Organization [facility] Address [address] [place] [address] Phone [phone] Care Team Providers Care Sand Mill Operator Core Sand Name Role Phone Roberto Askew MD Primary Care Provider + Reason for Visit * Reason Comments Dosage Adjustment Via Phone (anticoag Cl inic) Encounter Details Date Type Department Care Team Description 05/11/2023 Anticoagulation Pharmacy Call Center [phone] [place] [address] [facility] [address] [facility] [address] History of pulmonary embolism* Allergies Active Allergy [...] day as needed. 0 Active nystatin (NYSTOP) 413885 UNIT/GM powderIndications:Cut aneous candidiasis Apply topically to [...] C, by GOLD 2017 classification ([facility]),COPD, group D, by GOLD 2017 classification ([facility]) USE 2 PUFFS BY MOUTH EVERY 4 HOURS NEEDED SHORT OF BREATH 6.7 g 5 11/24/2021 Active Magnesium Oxide 400 (241.3 Mg) MG Oral TabletIndications:Cor onary artery disease involving omaha coronary artery of omaha heart without angina pectoris Take by mouth [...] goal of less than 8.0% ([facility]) Use as directed. 1 Kit 0 10/30/2022 Active Accu-Chek Guide In Vitro Strip (Glucose Blood)Indications:Typ e 2 diabetes mellitus with hemoglobin A1c goal of less than 8.0% ([facility]) Use to check sugars 3 times a day 100 Strip 1 10/30/2022 Active Accu-Chek Softclix LancetsIndications:Ty pe 2 diabetes mellitus with hemoglobin A1c goal of less than 8.0% ([facility]) Use to check sugars 3 times [...] the morning. 90 Capsule 1 12/03/2022 Active Furosemide 40 MG Oral Tablet (Lasix) Take 1 Tablet by mouth in the morning and 1 Tablet before bedtime. 180 Tablet 2 12/03/2022 Active Ondansetron HCl 4 MG Oral [...] MG Oral TabletIndications:Cor onary artery disease involving omaha coronary artery of omaha heart without angina pectoris Take 1 Tablet by mouth in the morning. In the morning.. 90 Tablet 1 04/05/2023 Active Metoprolol Succinate ER 50 MG Oral Tablet Extended Release 24 Hour (toPROL XL)Indications:Harman ry artery disease involving omaha coronary artery of omaha heart without angina pectoris TAKE 1 & [...] AT BEDTIME 180 Tablet 2 05/11/2023 Active documented as of this encounter [...] 01/24/2021 Opioid dependence, uncomplicated 021 History of [place] (myocardial infarction) Morbid obesity with BMI of 50.0-59.9, ad ult 10/04/2020 History of subdural hematoma 10/04/2020 Gastroesophageal reflux disease without esophagitis 10/04/2020 History of subarachnoid hemorrhage 10/04 Coronary artery disease involving omaha heart without angina pectoris 10/04/2020 COPD, group [...] Calculus of kidney 08/20/2015 02/01/2018 Overview: right, [place] CT Vitamin D deficiency 01/31/2015 02/01/2018 Body [...] mRNA, LNP-s, No Pre serve, 2-Dose Series ([employer]) 01/02/2021,12/05/2020 DTP Vaccine 07/19/2017,04/03/2014 Hepatitis B, 20+ [...] as of this encounter Progress Notes * Becky Goodwin [facility] - 05/11/2023 2:39 PM EDT Medication Therapy Disease Management - Anticoagulation Patient: Stanton Milner | : 1970 Subjective Contacts Type Contact Phone/Fax 05/11/2023 02:50 PM EDT Phone (Outgoing) Stanton Milner (Self) [phone] (H) Spoke with Patient-Reported Symptoms: Patient Findings Positives: Hospital admission (?Admitted to [facility] 05/04-05/08 for lightheadedness/fall- INR was 9 uponadmission & Vit K given. Head & spine CT unremarkable. Loop recorder placed on 05/05 for recurrent syncopal episodes) Negatives: Signs/symptoms of thrombosis, Signs/symptoms of bleeding, Change in health, Change in alcohol use, Change in activity, Upcoming invasive procedure, Missed doses, Extra doses, Change in medications, Change in diet/appetite, Bruising Comments: states he was advised to continue ACID PATROLLER dose at discharge. Objective Current Warfarin Dose As of 05/11/2023 Warfarin maintenance plan: 5 mg (5 mg x 1) every Mon, Wed, Fri; 2.5 mg (5 mg x 0.5) all other days INR Result As of 05/11/2023 INR goal: 2.0-3.0 INR used for dosing: No new INR was available at the time of this encounter. Assessment & Plan Warfarin Plan As of 05/11/2023 Full warfarin instructions: 5 mg every Mon, Wed, Fri; 2.5 mg all other days Next INR check: 05/13/2023 Repeat PT/INR in 2 day(s) Weekly dose: not changed Additional Dosing Information: Description GML(NCuTh) - pt prefers Tues GML at this time Becky Goodwin [facility] Clinical Pharmacist 05/11/2023, 2:40 PM documented in this encounter Plan of Treatment Upcoming Encounters Date Type Specialty Care Team Description 05/12/2023 Office Visit Internal Medicine Roberto Askew MD [address] [place] [address] Scheduled Orders Name Type Priority Associated Diagnoses Orde r Schedule PT INR Lab Routine History of pulmonary embolism Ordered: 05/11/2023 Health Maintenance Due Date Last Done Comments DISCUSS TOBACCO CESSATION (REFER TO SMARTSET #3291) 1970 HIV Screening 1985 Pneumococcal Vaccine: Pediatrics (0 to 5 Years) and At-Risk Patients (6 to 64 Years) (2 - PCV) 05/22/2010 05/22/2009 Cologuard 2015 Fecal Occult Blood Test 2015 Sigmoidoscopy 2015 *ADVANCE DIRECTIVE NOT ON FILE 02/03/2020 LUNG CANCER SCREENING - USE SMARTSET 61837 2020 02/10/2019, 07/19/2017, 05/09/2017, Additional history exists [...] this encounter Medical Devices Implanted Type Area Wellness Trainer Device Identifier Shelf Expiration Date Model / Serial / Lot Tube Flex 3.0x2.5 [id number] - [id number] Implanted:Qty: 1 on 12/07/2014 by Juancarlos Trinidad MD at [facility] [place] Left: Finger [employer] : ORTHOPAEDICS 11/18/2015 [id number] / / [id number] documented as of this encounter Procedures Procedure Name Priority Date/Time Associated Diagnosis Comments OUTSIDE LAB-PT/INR Routine 05/08/2023 OUTSIDE LAB-PT/INR Routine 05/04/2023 documented in this encounter Results * OUTSIDE LAB-PT/INR (05/08/2023) INR-OUTSIDE LAB 1.2 History Per Patient LABORATORY * OUTSIDE LAB-PT/INR (05/04/2023) INR-OUTSIDE LAB 9.0 History Per Patient LABORATORY documented in this encounter Visit Diagnoses Diagnosis History of [...] the patient have Health Care Power of Client Development Manager? No Healthcare Agents on File Name Relationship Healthcare Agent Relationship Communication Estrella Seth Other - (no specific identity) Health Care Power of Client Development Manager Care Teams Sand Mill Operator Core Sand Relationship Specialty Start Date End Date Roberto Askew MD [address] [place] [address] PCP - General Internal Medicine 04/10/20 documented as of this encounter
--- OUTSIDE RECORDS SUMMARY | 2023-08-22 22:12 | External Medical Summary | Summary of Care ---
Author Name Unknown Organization [facility] Address [address] [place] [address] Phone [phone] Care Team Providers Care Manager Car Name Role Phone Roberto Griffin MD Primary Care Provider + Reason for Visit * Reason Comments eRx-Medication Refill Encounter Details Date Type Department Care Team Description 05/03/2023 Refill General Internal Medicine [facility] [address] [place] [address] Roberto Griffin MD [address] [place] [address] Allergies Active Allergy Reactions Severity Noted Date [...] as of this encounter (statuses as of 05/10/2023) Medications Medication Sig Dispensed Refills Start Date [...] day as needed. 0 Active nystatin (NYSTOP) 376329 UNIT/GM powderIndications:C utaneous candidiasis Apply topically to [...] C, by GOLD 2017 classification ([facility]),COPD, group D, by GOLD 2017 classification ([facility]) USE 2 PUFFS BY MOUTH EVERY 4 HOURS NEEDED SHORT OF BREATH 6.7 g 5 2 Active Magnesium Oxide 400 (241.3 Mg) MG Oral TabletIndications:C oronary artery disease involving [place] coronary artery of washoe heart without angina pectoris Take by mouth [...] DOWNTOWN) Use as directed. 1 Kit 0 3 [...] A MEAL 180 Tablet 1 3 Active Potassium Chloride Terra ER 20 MEQ Oral Tablet Extended ReleaseIndications: Hypokalemia TAKE ONE TABLET BY MOUTH EVERY MORNING AND AT BEDTIME 60 Tablet 3 3 Active Ondansetron HCl 4 MG Oral Tablet (Zofran) TAKE 1 TABLET EVERY 8 HOURS NEEDED FOR NAUSEA 20 Tablet 1 3 Active predniSONE 10 MG Oral Tablet (Deltasone) Take 1 Tablet by mouth in the morning. Follow taper instructions from [facility]. 0 3 Active guaiFENesin-Codeine 100-10 MG/5ML [...] MG Oral TabletIndications:C oronary artery disease involving [place] coronary artery of washoe heart without angina pectoris Take 1 Tablet by mouth in the morning. In the morning.. 90 Tablet 1 3 Active Metoprolol Succinate ER 50 MG Oral Tablet Extended Release 24 Hour (toPROL XL)Indications:Freddie nary artery disease involving [place] coronary artery of washoe heart without angina pectoris TAKE 1 & [...] WEDNESDAY ONLY. 39 Tablet 1 3 Active metOLazone 2.5 MG Oral Tablet (Zaroxolyn) Take 1 Tablet by mouth once a day on Wednesday, Wednesday, and Wednesday only. 28 Tablet 3 3 023 Discontinued documented as of this encounter (statuses as of 05/10/2023) Active Problems Problem Noted Date Bandemia 10/24/2021 [...] subarachnoid hemorrhage 10/04 Coronary artery disease involving washoe heart without angina pectoris 10/04/2020 COPD, group [...] as of this encounter (statuses as of 05/10/2023) Resolved Problems Problem Noted Date Resolved Date [...] Calculus of kidney 08/20/2015 02/01/2018 Overview: right, [place] CT Vitamin D deficiency 01/31/2015 02/01/2018 Body [...] as of this encounter (statuses as of 05/10/2023) Immunizations Name Administration Dates Next Due COVID-19 mRNA, LNP-s, No Pre serve, 2-Dose Series ([employer]) 01/02/2021,12/05/2020 DTP Vaccine 07/19/2017,04/03/2014 Hepatitis B, 20+ [...] encounter Miscellaneous Notes * Telephone Encounter - Erika Le RPh - 05/10/2023 11:44 AM EDTSigned Prescriptions: Disp Refills metOLazone 2.5 MG Oral Tablet (Zaroxolyn) 39 Tab*1 Sig: TAKE 1 TABLET ONE TIME DAILY ON WEDNESDAY, WEDNESDAY, AND WEDNESDAY ONLY.Authorizing Provider: ROBERTO GRIFFIN User: ERIKA LE documented in this encounter Plan of Treatment Upcoming Encounters Date Type Specialty Care Team Description 05/11/2023 [facility] 05/12/2023 Office Visit Internal Medicine [facility], Roberto Lewis MD [address] [place] [address], [place] [address] Health Maintenance Due Date Last Done Comments DISCUSS TOBACCO CESSATION (REFER TO SMARTSET #0494) 1970 HIV Screening 1985 Pneumococcal Vaccine: Pediatrics (0 to 5 Years) and At-Risk Patients (6 to 64 Years) (2 - PCV) 05/22/2010 05/22/2009 Cologuard 2015 Fecal Occult Blood Test 2015 Sigmoidoscopy 2015 *ADVANCE DIRECTIVE NOT ON FILE 02/03/2020 LUNG CANCER SCREENING - USE SMARTSET 95263 2020 02/10/2019, 07/19/2017, 05/09/2017, Additional history exists [...] this encounter Medical Devices Implanted Type Area Resolution Manager Device Identifier Shelf Expiration Date Model / Serial / Lot Tube Flex 3.0x2.5 [id number] - [id number] Implanted:Qty: 1 on 12/07/2014 by Juancarlos Trinidad MD at [facility] Left: Finger [employer] : ORTHOPAEDICS 11/18/2015 [id number] / / [id number] documented as of this encounter Advance Directives [...] the patient have Health Care Power of Mixer Diamond Powder? No Healthcare Agents on File Name Relationship Healthcare Agent Relationship Communication Estrella Seth Other - (no specific identity) Health Care Power of Mixer Diamond Powder Care Teams Manager Car Relationship Specialty Start Date End Date Roberto Griffin MD [address] [facility] [place] [address] PCP - General Internal Medicine 04/10/20 documented as of this encounter
--- OUTSIDE RECORDS SUMMARY | 2023-08-22 22:12 | External Medical Summary | Summary of Care ---
Author Name Unknown Organization [facility] Address [address] [place] [address] Phone [phone] Care Team Providers Care Lead Housekeeper Name Role Phone Roberto Askew MD Primary Care Provider + Reason for Visit * Reason Onset Date Comments Medication Refill 05/03/2023 Tamsulosin and Atorvastatin Encounter Details Date Type Department Care Team Description 05/03/2023 Telephone General Internal Medicine [facility] [address] [facility] [place] [address] Madina Pollock MD [address] [place] [address] Medication Refill (Tamsulosin and Atorvast... Allergies Active Allergy Reactions Severity Noted Date [...] as of this encounter (statuses as of 05/03/2023) Medications Medication Sig Dispensed Refills Start Date [...] day as needed. 0 Active nystatin (NYSTOP) 259928 UNIT/GM powderIndications:Cut aneous candidiasis Apply topically to [...] MG Oral TabletIndications:Cor onary artery disease involving sob[place] coronary artery of soboba heart without angina pectoris Take by mouth [...] goal of less than 8.0% ([facility]) Use as directed. 1 Kit 0 10/30/2022 Active Accu-Chek Guide In Vitro Strip (Glucose Blood)Indications:Typ e 2 diabetes mellitus with hemoglobin A1c goal of less than 8.0% ([facility]) Use to check sugars 3 times a day 100 Strip 1 10/30/2022 Active Accu-Chek Softclix LancetsIndications:Ty pe 2 diabetes mellitus with hemoglobin A1c goal of less than 8.0% ([facility]) Use to check sugars 3 times [...] NEEDED NAUSEA 20 Tablet 1 12/03/2022 Active metOLazone 2.5 MG Oral Tablet (Zaroxolyn) Take 1 Tablet by mouth once a day on Wednesday, Wednesday, and Wednesday only. 28 Tablet 3 12/04/2022 Active Gabapentin 800 MG Oral Tablet (Neurontin)Indication [...] A MEAL 180 Tablet 1 12/10/2022 Active Potassium Chloride Terra ER 20 MEQ Oral Tablet Extended ReleaseIndications:Hy pokalemia TAKE ONE TABLET BY MOUTH EVERY MORNING AND AT BEDTIME 60 Tablet 3 12/09/2022 Active Ondansetron HCl 4 MG Oral Tablet (Zofran) TAKE 1 TABLET EVERY 8 HOURS NEEDED FOR NAUSEA 20 Tablet 1 12/24/2022 Active predniSONE 10 MG Oral Tablet (Deltasone) Take 1 Tablet by mouth in the morning. Follow taper instructions from [facility]. 0 12/25/2022 Active guaiFENesin-Codeine 100-10 MG/5ML Oral [...] MG Oral TabletIndications:Cor onary artery disease involving sob[place] coronary artery of soboba heart without angina pectoris Take 1 Tablet by mouth in the morning. In the morning.. 90 Tablet 1 04/05/2023 Active Metoprolol Succinate ER 50 MG Oral Tablet Extended Release 24 Hour (toPROL XL)Indications:Harman ry artery disease involving soboba coronary artery of soboba heart without angina pectoris TAKE 1 & [...] [facility]. 90 Tablet 3 04/23/2023 Active Atorvastatin Calcium 80 MG Oral Tablet (Lipitor) Take 1 Tablet by mouth in the morning. To take in the afternoon.. 30 Tablet 1 04/28/2023 Active documented as of this encounter (statuses as of 05/03/2023) Active Problems Problem Noted Date Bandemia 10/24/2021 [...] 01/24/2021 Opioid dependence, uncomplicated 021 History of [place] (myocardial infarction) Morbid obesity with BMI of 50.0-59.9, ad ult 10/04/2020 History of subdural hematoma 10/04/2020 Gastroesophageal reflux disease without esophagitis 10/04/2020 History of subarachnoid hemorrhage 10/04 Coronary artery disease involving soboba heart without angina pectoris 10/04/2020 COPD, group [...] as of this encounter (statuses as of 05/03/2023) Resolved Problems Problem Noted Date Resolved Date [...] Calculus of kidney 08/20/2015 02/01/2018 Overview: right, [place] CT Vitamin D deficiency 01/31/2015 02/01/2018 Body [...] as of this encounter (statuses as of 05/03/2023) Immunizations Name Administration Dates Next Due COVID-19 mRNA, LNP-s, No Pre serve, 2-Dose Series ([employer]) 01/02/2021,12/05/2020 DTP Vaccine 07/19/2017,04/03/2014 Hepatitis B, 20+ [...] encounter Miscellaneous Notes * Telephone Encounter - Janet Allen - 05/03/2023 3:41 PM EDT Received Fax: Qty: 180 Tamsulosin HCL 0.4 mg capsule [id number] ALSO Received Fax: Qty: 90 Atorvastatin 80 mg tab [id number] documented in this encounter Plan of Treatment Upcoming Encounters Date Type Specialty Care Team Description 05/04/2023 Laboratory Laboratory Processing [facility] [place] [facility] Mobile Home Draw [address] [place] [address] 05/05/2023 [facility] [address] Health Maintenance Due Date Last Done Comments DISCUSS TOBACCO CESSATION (REFER TO SMARTSET #3291) 1970 HIV Screening 1985 Pneumococcal Vaccine: Pediatrics (0 to 5 Years) and At-Risk Patients (6 to 64 Years) (2 - PCV) 05/22/2010 05/22/2009 Cologuard 2015 Fecal Occult Blood Test 2015 Sigmoidoscopy 2015 *ADVANCE DIRECTIVE NOT ON FILE 02/03/2020 LUNG CANCER SCREENING - USE SMARTSET 36579 2020 02/10/2019, 07/19/2017, 05/09/2017, Additional history exists [...] this encounter Medical Devices Implanted Type Area Winch Driver Device Identifier Shelf Expiration Date Model / Serial / Lot Tube Flex 3.0x2.5 [id number] - [id number] Implanted:Qty: 1 on 12/07/2014 by Juancarlos Trinidad MD at [facility] Left: Finger [employer] : ORTHOPAEDICS 11/18/2015 [id number] / / [id number] documented as of this encounter Advance Directives [...] the patient have Health Care Power of Oil Well Service Unit Operator? No Healthcare Agents on File Name Relationship Healthcare Agent Relationship Communication Estrella Seth Other - (no specific identity) Health Care Power of Oil Well Service Unit Operator Care Teams Lead Housekeeper Relationship Specialty Start Date End Date Roberto Askew MD [address] [place] [id number] PCP - General Internal Medicine 04/10/20 documented as of this encounter
--- OUTSIDE RECORDS SUMMARY | 2023-08-22 22:12 | External Medical Summary | Summary of Care ---
Author Name Unknown Organization [facility] Address [address] [place] [address] Phone [phone] Care Team Providers Care Fusion Analyst Name Role Phone Roberto Askew MD Primary Care Provider + Reason for Visit * Reason Onset Date Comments Appointment 05/06/2023 Encounter Details Date Type Department Care Team Description 05/06/2023 Telephone Cardiology, [facility] [address] [facility] [place] [address] Josefina Chaevz, [address] [place] [address] Appointment Allergies Active Allergy Reactions Severity Noted [...] day as needed. 0 Active nystatin (NYSTOP) 715037 UNIT/GM powderIndications:Cut aneous candidiasis Apply topically to [...] MG Oral TabletIndications:Cor onary artery disease involving [place] coronary artery of [place] heart without angina pectoris Take by mouth [...] morning. Follow taper instructions from [facility]. 0 12/25/2022 Active guaiFENesin-Codeine 100-10 MG/5ML [...] MG Oral TabletIndications:Cor onary artery disease involving [place] tribe coronary artery of [place] heart without angina pectoris Take 1 Tablet by mouth in the morning. In the morning.. 90 Tablet 1 04/05/2023 Active Metoprolol Succinate ER 50 MG Oral Tablet Extended Release 24 Hour (toPROL XL)Indications:Harman ry artery disease involving [place] tribe coronary artery of [place] tribe heart without angina pectoris TAKE 1 & [...] 01/24/2021 Opioid dependence, uncomplicated 021 History of [place] (myocardial infarction) Morbid obesity with BMI of 50.0-59.9, ad ult 10/04/2020 History of subdural hematoma 10/04/2020 Gastroesophageal reflux disease without esophagitis 10/04/2020 History of subarachnoid hemorrhage 10/04 Coronary artery disease involving [place] tribe heart without angina pectoris 10/04/2020 COPD, group [...] Calculus of kidney 08/20/2015 02/01/2018 Overview: right, [place] CT Vitamin D deficiency 01/31/2015 02/01/2018 Body [...] mRNA, LNP-s, No Pre serve, 2-Dose Series ([employer]) 01/02/2021,12/05/2020 DTP Vaccine 07/19/2017,04/03/2014 Hepatitis B, 20+ [...] encounter Miscellaneous Notes * Telephone Encounter - Flory Jaime RN - 05/06/2023 12:51 PM EDT Noted. Added to work list, will reach out to patient. * Telephone Encounter - Yesenia Cortez LPN - 05/06/2023 11:25 AM EDT Pt had linq implanted today as inpatient by Josefina Chavez DO. Needs 1 week follow up wound check documented in this encounter Plan of Treatment Upcoming Encounters Date Type Specialty Care Team Description 05/11/2023 Anticoagulation Pharmacy Telepharmacy, [facility] 58 60 [facility] [place] [address] 05/12/2023 Office Visit Internal Medicine Roberto Askew MD [address] [place] [address] Health Maintenance Due Date Last Done Comments DISCUSS TOBACCO CESSATION (REFER TO SMARTSET #3291) 1970 HIV Screening 1985 Pneumococcal Vaccine: Pediatrics (0 to 5 Years) and At-Risk Patients (6 to 64 Years) (2 - PCV) 05/22/2010 05/22/2009 Cologuard 2015 Fecal Occult Blood Test 2015 Sigmoidoscopy 2015 *ADVANCE DIRECTIVE NOT ON FILE 02/03/2020 LUNG CANCER SCREENING - USE SMARTSET [id number] 2020 02/10/2019, 07/19/2017, 05/09/2017, Additional history exists [...] this encounter Medical Devices Implanted Type Area Legal Researcher Device Identifier Shelf Expiration Date Model / Serial / Lot Tube Flex 3.0x2.5 [id number] - [id number] Implanted:Qty: 1 on 12/07/2014 by Juancarlos Trinidad MD at [facility] Left: Finger [employer] : ORTHOPAEDICS 11/18/2015 [id number] / / [id number] documented as of this encounter Advance Directives [...] the patient have Health Care Power of Hop Worker? No Healthcare Agents on File Name Relationship Healthcare Agent Relationship Communication Estrella Seth Other - (no specific identity) Health Care Power of Hop Worker Care Teams Fusion Analyst Relationship Specialty Start Date End Date Roberto Askew MD [address] [place] [address], [place] [address] PCP - General Internal Medicine 04/10/20 documented as of this encounter
--- OUTSIDE RECORDS SUMMARY | 2023-08-22 22:12 | External Medical Summary | Summary of Care ---
Author Name Unknown Organization [facility] Address [address] [place] [address] Phone [phone] Care Team Providers Care Supervisor Riprap Placing Name Role Phone Roberto Askew MD Primary Care Provider + Reason for Visit * Reason Comments Dosage Adjustment Via Phone (anticoag Cl inic) Encounter Details Date Type Department Care Team Description 05/05/2023 Anticoagulation Pharmacy Call Center [phone] [place] [address] [facility] [address] History of pulmonary embolism* Allergies Active Allergy [...] as of this encounter (statuses as of 05/05/2023) Medications Medication Sig Dispensed Refills Start Date [...] day as needed. 0 Active nystatin (NYSTOP) 208248 UNIT/GM powderIndications:Cut aneous candidiasis Apply topically to [...] MG Oral TabletIndications:Cor onary artery disease involving [place] coronary artery of [place] heart without angina pectoris Take by mouth [...] MG Oral TabletIndications:Cor onary artery disease involving [place] coronary artery of n[place]qu[place] heart without angina pectoris Take 1 Tablet by mouth in the morning. In the morning.. 90 Tablet 1 04/05/2023 Active Metoprolol Succinate ER 50 MG Oral Tablet Extended Release 24 Hour (toPROL XL)Indications:Harman ry artery disease involving [place] coronary artery of nisqually heart without angina pectoris TAKE 1 & [...] as of this encounter (statuses as of 05/05/2023) Active Problems Problem Noted Date Bandemia 10/24/2021 [...] subarachnoid hemorrhage 10/04 Coronary artery disease involving nisqually heart without angina pectoris 10/04/2020 COPD, group [...] as of this encounter (statuses as of 05/05/2023) Resolved Problems Problem Noted Date Resolved Date [...] Calculus of kidney 08/20/2015 02/01/2018 Overview: right, [facility] Vitamin D deficiency 01/31/2015 02/01/2018 Body [...] as of this encounter (statuses as of 05/05/2023) Immunizations Name Administration Dates Next Due COVID-19 mRNA, LNP-s, No Pre serve, 2-Dose Series ([employer]) 01/02/2021,12/05/2020 DTP Vaccine 07/19/2017,04/03/2014 Hepatitis B, [...] of this encounter Progress Notes * ARTEM Ruiz - 05/05/2023 7:41 AM EDT Patient no showed 05/04 [facility] appointment. Chart routed to mobile lab asking that patient be rescheduled for pt/inr on 05/06. F/U scheduled for 05/07. Thank you, Stephani Soto Facing Grinder [facility] ([facility]) (formerly Telepharmacy) [phone] 05/05/2023,7:41 AM documented in this encounter Plan of Treatment Upcoming Encounters Date Type Specialty Care Team Description 05/06/2023 Laboratory Laboratory Processing [facility], [facility] Mobile Home Draw [address] [place] [address] Health Maintenance Due Date Last Done Comments DISCUSS TOBACCO CESSATION (REFER TO SMARTSET #9977) 1970 HIV Screening 1985 Pneumococcal Vaccine: Pediatrics (0 to 5 Years) and At-Risk Patients (6 to 64 Years) (2 - PCV) 05/22/2010 05/22/2009 Cologuard 2015 Fecal Occult Blood Test 2015 Sigmoidoscopy 2015 *ADVANCE DIRECTIVE NOT ON FILE 02/03/2020 LUNG CANCER SCREENING - USE SMARTSET [id number] 2020 02/10/2019, 07/19/2017, 05/09/2017, Additional history exists [...] this encounter Medical Devices Implanted Type Area New Media Strategist Device Identifier Shelf Expiration Date Model / Serial / Lot Tube Flex 3.0x2.5 [id number] - [id number] Implanted:Qty: 1 on 12/07/2014 by Juancarlos Trinidad MD at [place] [facility] Left: Finger LANDON : ORTHOPAEDICS 11/18/2015 [id number] / / [id number] documented as of this encounter Visit Diagnoses [...] the patient have Health Care Power of Education Associate? No Healthcare Agents on File Name Relationship Healthcare Agent Relationship Communication Estrella Seth Other - (no specific identity) Health Care Power of Education Associate Care Teams Supervisor Riprap Placing Relationship Specialty Start Date End Date Roberto Askew MD [address] [place] [id number] PCP - General Internal Medicine 04/10/20 documented as of this encounter
--- OUTSIDE RECORDS SUMMARY | 2023-08-22 22:12 | External Medical Summary | Summary of Care ---
Author Name Unknown Organization [facility] Address [address] [place] [address] Phone [phone] Care Team Providers Care Forming Department End Finder Name Role Phone Roberto Askew MD Primary Care Provider + Reason for Visit * Reason Onset Date Comments Follow Up 04/22/2023 Encounter Details Date Type Department Care Team Description 04/22/2023 Telephone Ancillary [facility] [address] [place] [address] Kimmy Hill, ALEXANDER Follow Up Allergies Active Allergy Reactions Severity Noted Date [...] day as needed. 0 Active nystatin (NYSTOP) 703206 UNIT/GM powderIndications:Cut aneous candidiasis Apply topically to [...] OPD, group C, by GOLD 2017 classification ([facility]),COPD, group D, by GOLD 2017 classification ([facility]) USE 2 PUFFS BY MOUTH EVERY 4 HOURS NEEDED SHORT OF BREATH 6.7 g 5 11/24/2021 Active Magnesium Oxide 400 (241.3 Mg) MG Oral TabletIndications:Cor onary artery disease involving barrow coronary artery of barrow heart without angina pectoris Take by mouth [...] ([facility]) Use to check sugars 3 times a day 100 Strip 1 10/30/2022 Active Accu-Chek Softclix LancetsIndications:Ty pe 2 diabetes mellitus with hemoglobin A1c goal of less than 8.0% ([facility]) Use to check sugars 3 times a [...] in the morning. Follow taper instructions from [facility]. 0 12/25/2022 Active guaiFENesin-Codeine 100-10 MG/5ML [...] MG Oral TabletIndications:Cor onary artery disease involving barrow coronary artery of barrow heart without angina pectoris Take 1 Tablet by mouth in the morning. In the morning.. 90 Tablet 1 04/05/2023 Active Metoprolol Succinate ER 50 MG Oral Tablet Extended Release 24 Hour (toPROL XL)Indications:Harman ry artery disease involving barrow coronary artery of barrow heart without angina pectoris TAKE 1 & [...] THE MORNING 90 Tablet 1 04/21/2023 Active documented as of this encounter (statuses [...] 01/24/2021 Opioid dependence, uncomplicated 021 History of [place] (myocardial infarction) Morbid obesity with BMI of 50.0-59.9, ad ult 10/04/2020 History of subdural hematoma 10/04/2020 Gastroesophageal reflux disease without esophagitis 10/04/2020 History of subarachnoid hemorrhage 10/04 Coronary artery disease involving barrow heart without angina pectoris 10/04/2020 COPD, group [...] Calculus of kidney 08/20/2015 02/01/2018 Overview: right, [place] CT Vitamin D deficiency 01/31/2015 02/01/2018 Body [...] use disorder 06/29/2014 01/30/2015 Respiratory depression 06/26/2014 01/15/201 8 Viral gastroenteritis 06/06/2014 01/30/2015 Malaise and [...] mRNA, LNP-s, No Pre serve, 2-Dose Series ([employer]) 01/02/2021,12/05/2020 DTP Vaccine 07/19/2017,04/03/2014 Hepatitis B, 20+ [...] Care Team Description 05/04/2023 Laboratory Laboratory Processing [facility], [facility] Mobile Home Draw [address], [place] [id number] 05/05/2023 [facility] [address] [place] [address] Health Maintenance Due Date Last Done Comments DISCUSS TOBACCO CESSATION (REFER TO SMARTSET #3291) 1970 HIV Screening 1985 Pneumococcal Vaccine: Pediatrics (0 to 5 Years) and At-Risk Patients (6 to 64 Years) (2 - PCV) 05/22/2010 05/22/2009 Cologuard 2015 Fecal Occult Blood Test 2015 Sigmoidoscopy 2015 *ADVANCE DIRECTIVE NOT ON FILE 02/03/2020 LUNG CANCER SCREENING - USE SMARTSET [id number] 2020 02/10/2019, 07/19/2017, 05/09/2017, Additional history exists [...] this encounter Medical Devices Implanted Type Area Mobile Solutions Architect Device Identifier Shelf Expiration Date Model / Serial / Lot Tube Flex 3.0x2.5 [id number] - [id number] Implanted:Qty: 1 on 12/07/2014 by Juancarlos Trinidad MD at [facility] Left: Finger [employer]ANDON : ORTHOPAEDICS 11/18/2015 [id number] / / [id number] documented as of this encounter Advance Directives [...] patient have Health Care Power of Plant Operations Worker? No Healthcare Agents on File Name Relationship Healthcare Agent Relationship Communication Estrella Seth Other - (no specific identity) Health Care Power of Plant Operations Worker Care Teams Forming Department End Finder Relationship Specialty Start Date End Date Roberto Askew MD [address] [place] [address], [place] [address] PCP - General Internal Medicine 04/10/20 documented as of this encounter
--- OUTSIDE RECORDS SUMMARY | 2023-08-22 22:12 | External Medical Summary | Summary of Care ---
Author Name Unknown Organization [facility] Address [address] [place] [address] Phone [phone] Care Team Providers Care Chicken Boner Name Role Phone Roberto Askew MD Primary Care Provider + Encounter Details Date Type Department Care Team Description 04/26/2023 Telephone General Internal Medicine [facility] [address] [facility] [place] [address] Roberto Askew MD [address] [place] [address] Allergies Active Allergy Reactions Severity Noted Date [...] day as needed. 0 Active nystatin (NYSTOP) 964794 UNIT/GM powderIndications:Cut aneous candidiasis Apply topically to [...] MG Oral TabletIndications:Cor onary artery disease involving [place] coronary artery of [place] heart without angina pectoris Take by mouth [...] from [facility]. 0 12/25/2022 Active guaiFENesin-Codeine 100-10 MG/5ML Oral [...] MG Oral TabletIndications:Cor onary artery disease involving [place] coronary artery of [place] heart without angina pectoris Take 1 Tablet by mouth in the morning. In the morning.. 90 Tablet 1 04/05/2023 Active Metoprolol Succinate ER 50 MG Oral Tablet Extended Release 24 Hour (toPROL XL)Indications:Harman ry artery disease involving [place] coronary artery of [place] heart without angina pectoris TAKE 1 & [...] COUMADIN CLINIC. 90 Tablet 3 04/23/2023 Active documented as of this encounter (statuses [...] 01/24/2021 Opioid dependence, uncomplicated 021 History of [place] (myocardial infarction) Morbid obesity with BMI of 50.0-59.9, ad ult 10/04/2020 History of subdural hematoma 10/04/2020 Gastroesophageal reflux disease without esophagitis 10/04/2020 History of subarachnoid hemorrhage 10/04 Coronary artery disease involving [place] heart without angina pectoris 10/04/2020 COPD, group [...] Calculus of kidney 08/20/2015 02/01/2018 Overview: right, [place] CT Vitamin D deficiency 01/31/2015 02/01/2018 Body [...] mRNA, LNP-s, No Pre serve, 2-Dose Series ([employer]) 01/02/2021,12/05/2020 DTP Vaccine 07/19/2017,04/03/2014 Hepatitis B, 20+ [...] Telephone Encounter - Meredith Carroll LPN - 05/05/2023 3:09 PM EDT See other encounter * Telephone Encounter - DARIA Holley - 04/26/2023 3:07 PM EDT Clarification needed on prescription ATORVASTATIN 80MG TAB. Form left in providers mailbox. documented in this encounter Plan of Treatment [...] 02/03/2020 LUNG CANCER SCREENING - USE SMARTSET [id number] 2020 02/10/2019, 07/19/2017, 05/09/2017, Additional history exists [...] this encounter Medical Devices Implanted Type Area Sales Inspector Device Identifier Shelf Expiration Date Model / Serial / Lot Tube Flex 3.0x2.5 [id number] - [id number] Implanted:Qty: 1 on 12/07/2014 by Juancarlos Trinidad MD at [facility] Left: Finger [employer]ON : ORTHOPAEDICS 11/18/2015 [id number] / / [id number] documented as of this encounter Advance Directives [...] the patient have Health Care Power of Informatics Developer? No Healthcare Agents on File Name Relationship Healthcare Agent Relationship Communication Estrella Seth Other - (no specific identity) Health Care Power of Informatics Developer Care Teams Chicken Boner Relationship Specialty Start Date End Date Roberto Askew MD [address] [place] [address], [place] [address] PCP - General Internal Medicine 04/10/20 documented as of this encounter
--- OUTSIDE RECORDS SUMMARY | 2023-08-22 22:12 | External Medical Summary | Summary of Care ---
Author Name Unknown Organization [facility] Address [address] [place] [address] Phone [phone] Care Team Providers Care Treasury Management Sales Consultant Name Role Phone Roberto Griffin MD Primary Care Provider + Reason for Visit * Reason Onset Date Comments Medication Refill 04/28/2023 Encounter Details Date Type Department Care Team Description 04/28/2023 Refill General Internal Medicine [facility] 200 [facility] [place] [address] Roberto Griffin MD [address] [place] [address] Allergies Active Allergy Reactions Severity Noted Date [...] as of this encounter (statuses as of 04/28/2023) Medications Medication Sig Dispensed Refills Start Date [...] day as needed. 0 Active nystatin (NYSTOP) 261928 UNIT/GM powderIndications:Cu taneous candidiasis Apply topically to [...] COPD, group C, by GOLD 2017 classification ([facility]),COPD, group D, by GOLD 2017 classification ([facility]) USE 2 PUFFS BY MOUTH EVERY 4 HOURS NEEDED SHORT OF BREATH 6.7 g 5 2 Active Magnesium Oxide 400 (241.3 Mg) MG Oral TabletIndications:Co ronary artery disease involving [place] coronary artery of [place] heart without angina pectoris Take by mouth [...] NEEDED NAUSEA 20 Tablet 1 3 Active metOLazone 2.5 MG Oral Tablet (Zaroxolyn) Take 1 Tablet by mouth once a day on Wednesday, Wednesday, and Wednesday only. 28 Tablet 3 3 Active Gabapentin 800 MG Oral Tablet [...] Tablet Extended ReleaseIndications:H ypokalemia TAKE ONE TABLET BY MOUTH EVERY MORNING AND AT BEDTIME 60 Tablet 3 3 Active Ondansetron HCl 4 MG Oral Tablet (Zofran) TAKE 1 TABLET EVERY 8 HOURS NEEDED FOR NAUSEA 20 Tablet 1 3 Active predniSONE 10 MG Oral Tablet (Deltasone) Take 1 Tablet by mouth in the morning. Follow taper instructions from [facility]. 0 3 Active guaiFENesin-Codeine 100-10 MG/5ML [...] MG Oral TabletIndications:Co ronary artery disease involving [place] coronary artery of [place] heart without angina pectoris Take 1 Tablet by mouth in the morning. In the morning.. 90 Tablet 1 3 Active Metoprolol Succinate ER 50 MG Oral Tablet Extended Release 24 Hour (toPROL XL)Indications:Coron uziel artery disease involving [place] coronary artery of [place] heart without angina pectoris TAKE 1 & [...] COUMADIN CLINIC. 90 Tablet 3 3 Active Atorvastatin Calcium 80 MG Oral Tablet (Lipitor) Take 1 Tablet by mouth in the morning. To take in the afternoon.. 30 Tablet 1 3 Active Atorvastatin Calcium 80 MG Oral Tablet (Lipitor) Take 1 Tablet by mouth in the morning. To take in the afternoon.. 30 Tablet 1 3 04/28/20 23 Discontinu ed(Refill) documented as of this encounter (statuses as of 04/28/2023) Active Problems Problem Noted Date Bandemia 10/24/2021 [...] 01/24/2021 Opioid dependence, uncomplicated 021 History of [place] (myocardial infarction) Morbid obesity with BMI of 50.0-59.9, ad ult 10/04/2020 History of subdural hematoma 10/04/2020 Gastroesophageal reflux disease without esophagitis 10/04/2020 History of subarachnoid hemorrhage 10/04 Coronary artery disease involving [place]osh[place] heart without angina pectoris 10/04/2020 COPD, group [...] as of this encounter (statuses as of 04/28/2023) Resolved Problems Problem Noted Date Resolved Date [...] Calculus of kidney 08/20/2015 02/01/2018 Overview: right, [place] CT Vitamin D deficiency 01/31/2015 02/01/2018 [...] as of this encounter (statuses as of 04/28/2023) Immunizations Name Administration Dates Next Due COVID-19 mRNA, LNP-s, No Pre serve, 2-Dose Series ([employer]) 01/02/2021,12/05/2020 DTP Vaccine 07/19/2017,04/03/2014 Hepatitis B, 20+ [...] Telephone Encounter - Roberto Griffin MD - 04/28/2023 5:05 PM EDTSigned Prescriptions: Disp Refills Atorvastatin Calcium 80 MG Oral Tablet (Li*30 Tab*1 Sig: Take 1 Tablet by mouth in the morning. To take in the afternoon.. Authorizing Provider: ROBERTO GRIFFIN * Telephone Encounter - Aspen Mcpherson LPN - 04/28/2023 3:59 PM EDT Pending Prescriptions: Disp Refills Atorvastatin Calcium 80 MG Oral Tablet (Li*30 Tab*1 Sig: Take 1 Tablet by mouth in the morning. To take in the afternoon.. * Telephone Encounter - Milka Alegria - 04/28/2023 11:25 AM EDT Clarification needed Conflicting directions 1 tab in AM Or 1 tab in afternoon Did you pend patient's preferred pharmacy and medication before forwarding?yes Pharmacy: [facility] [address] [facility] [place] Pending Prescriptions: Disp Refills Atorvastatin Calcium 80 MG Oral Tablet (L*30 Tab*1 Sig: Take 1 Tablet by mouth in the morning. To take in the afternoon.. Last Visit: 08/10/2022 (in office), 12/10/2021 (telemedicine) Next Visit: Visit date not found If no future appointments scheduled, and last appointment is greater than a year ago, please schedule patient for a follow-up appointment Last date the medication was ordered: 04/21/23 Is this request for a controlled substance?No [...] Care Team Description 05/04/2023 Laboratory Laboratory Processing [facility] Mobile Home Draw [address] [place] [address] 05/05/2023 [facility] [address] [place] [address] Health Maintenance Due Date Last Done Comments DISCUSS TOBACCO CESSATION (REFER TO SMARTSET #3291) 1970 HIV Screening 1985 Pneumococcal Vaccine: Pediatrics (0 to 5 Years) and At-Risk Patients (6 to 64 Years) (2 - PCV) 05/22/2010 05/22/2009 Cologuard 2015 Fecal Occult Blood Test 2015 Sigmoidoscopy 2015 *ADVANCE DIRECTIVE NOT ON FILE 02/03/2020 LUNG CANCER SCREENING - USE SMARTSET [id number] 2020 02/10/2019, 07/19/2017, 05/09/2017, Additional history exists [...] this encounter Medical Devices Implanted Type Area Casting Machine Operator Automatic Device Identifier Shelf Expiration Date Model / Serial / Lot Tube Flex 3.0x2.5 [id number] - [id number] Implanted:Qty: 1 on 12/07/2014 by Juancarlos Trinidad MD at OR [facility] Left: Finger [employer]ANDON : ORTHOPAEDICS 11/18/2015 [id number] / / [id number] documented as of this encounter Advance Directives [...] the patient have Health Care Power of Conveyor Installer? No Healthcare Agents on File Name Relationship Healthcare Agent Relationship Communication Estrella Seth Other - (no specific identity) Health Care Power of Conveyor Installer Care Teams Treasury Management Sales Consultant Relationship Specialty Start Date End Date Roberto Griffin MD [address] [place] [id number] PCP - General Internal Medicine 04/10/20 documented as of this encounter
--- OUTSIDE RECORDS SUMMARY | 2023-08-22 22:12 | External Medical Summary | Summary of Care ---
Author Name Unknown Organization [facility] Address [address] [place] [address] Phone [phone] Care Team Providers Care Refinery Operator Coking Name Role Phone Roberto Askew MD Primary Care Provider + Reason for Visit * Reason Onset Date Comments Medication Refill 05/05/2023 Atorvastatin Encounter Details Date Type Department Care Team Description 05/05/2023 Refill General Internal Medicine [facility] 200 [facility] [place] [address] Madina Pollock MD [address] [place] [address] Allergies Active Allergy Reactions Severity Noted Date [...] day as needed. 0 Active nystatin (NYSTOP) 082319 UNIT/GM powderIndications:Cut aneous candidiasis Apply topically to [...] by GOLD 2017 classification ([facility]),COPD, group D, by GOLD 2017 classification ([facility]) USE 2 PUFFS BY MOUTH EVERY 4 HOURS NEEDED SHORT OF BREATH 6.7 g 5 11/24/2021 Active Magnesium Oxide 400 (241.3 Mg) MG Oral TabletIndications:Cor onary artery disease involving [place] coronary artery of [place] heart without angina pectoris Take by mouth [...] SYSTEM) Use as directed. 1 Kit 0 10/30/2022 [...] [facility]. 0 12/25/2022 Active guaiFENesin-Codeine 100-10 MG/5ML Oral [...] MG Oral TabletIndications:Cor onary artery disease involving [place] coronary artery of [place] heart without angina pectoris Take 1 Tablet by mouth in the morning. In the morning.. 90 Tablet 1 04/05/2023 Active Metoprolol Succinate ER 50 MG Oral Tablet Extended Release 24 Hour (toPROL XL)Indications:Harman ry artery disease involving [place] coronary artery of [place] heart without angina pectoris TAKE 1 & [...] 01/24/2021 Opioid dependence, uncomplicated 021 History of [place] (myocardial infarction) Morbid obesity with BMI of 50.0-59.9, ad ult 10/04/2020 History of subdural hematoma 10/04/2020 Gastroesophageal reflux disease without esophagitis 10/04/2020 History of subarachnoid hemorrhage 10/04 Coronary artery disease involving [place] heart without angina pectoris 10/04/2020 COPD, group [...] Calculus of kidney 08/20/2015 02/01/2018 Overview: right, [place] CT Vitamin D deficiency 01/31/2015 02/01/2018 Body [...] mRNA, LNP-s, No Pre serve, 2-Dose Series ([employer]) 01/02/2021,12/05/2020 DTP Vaccine 07/19/2017,04/03/2014 Hepatitis B, 20+ [...] as of this encounter Miscellaneous Notes * Addendum Note - Krishna Fink CMA - 05/05/2023 1:01 PM EDTAddended by: KRISHNA FINK on: 05/05/2023 01:01 PM Modules accepted: Orders * Telephone Encounter - Janet Allen - 05/05/2023 12:15 PM EDT Received Fax: Atorvastatin 80mg Tab Qty: 90.0 [id number] ALSO Received Fax: Tamsulosin HCL 0.4 mg capsule Qty: 180 [id number] documented in this encounter Plan of Treatment Upcoming Encounters Date Type Specialty Care Team Description 05/06/2023 Laboratory Laboratory [place] [facility] [place] Home Draw [address] [place] [address] Health Maintenance Due Date Last Done Comments DISCUSS TOBACCO CESSATION (REFER TO SMARTSET #6478) 1970 HIV Screening 1985 Pneumococcal Vaccine: Pediatrics (0 to 5 Years) and At-Risk Patients (6 to 64 Years) (2 - PCV) 05/22/2010 05/22/2009 Cologuard 2015 Fecal Occult Blood Test 2015 Sigmoidoscopy 2015 *ADVANCE DIRECTIVE NOT ON FILE 02/03/2020 LUNG CANCER SCREENING - USE SMARTSET [id number] 2020 02/10/2019, 07/19/2017, 05/09/2017, Additional history exists [...] encounter Medical Devices Implanted Type Area Sales Representative Gas Service Device Identifier Shelf Expiration Date Model / Serial / Lot Tube Flex 3.0x2.5 [id number] - [id number] Implanted:Qty: 1 on 12/07/2014 by Juancarlos Trinidad MD at [facility] Left: Finger [employer] : ORTHOPAEDICS 11/18/2015 [id number] / / [id number] documented as of this encounter Advance Directives [...] the patient have Health Care Power of 4Th Grade Teacher? No Healthcare Agents on File Name Relationship Healthcare Agent Relationship Communication Estrella Seth Other - (no specific identity) Health Care Power of 4Th Grade Teacher Care Teams Refinery Operator Coking Relationship Specialty Start Date End Date Roberto Askew MD [address] [place] [address], [place] [address] PCP - General Internal Medicine 04/10/20 documented as of this encounter
--- OUTSIDE RECORDS SUMMARY | 2023-08-22 22:12 | External Medical Summary | Summary of Care ---
Author Name Unknown Organization [facility] Address [address] [place] [address] Phone [phone] Care Team Providers Care Wagon Driver Salesperson Name Role Phone Roberto Askew MD Primary Care Provider + Reason for Visit * Reason Onset Date Comments Medication Refill 05/03/2023 Tamsulosin and Atorvastatin Encounter Details Date Type Department Care Team Description 05/03/2023 Telephone General Internal Medicine [facility] [address] [facility] [place] [address] Madina Pollock MD [address] [place] [address] Medication Refill (Tamsulosin and Atorvast... Allergies Active [...] as of this encounter (statuses as of 05/04/2023) Medications Medication Sig Dispensed Refills Start Date [...] day as needed. 0 Active nystatin (NYSTOP) 787996 UNIT/GM powderIndications:Cut aneous candidiasis Apply topically to [...] C, by GOLD 2017 classification ([facility]),COPD, group D, by GOLD 2017 classification ([facility]) USE 2 PUFFS BY MOUTH EVERY 4 HOURS NEEDED SHORT OF BREATH 6.7 g 5 11/24/2021 Active Magnesium Oxide 400 (241.3 Mg) MG Oral TabletIndications:Cor onary artery disease involving teller coronary artery of teller heart without angina pectoris Take by mouth [...] goal of less than 8.0% ([facility]) Use as directed. 1 Kit 0 10/30/2022 Active Accu-Chek Guide In Vitro Strip (Glucose Blood)Indications:Typ e 2 diabetes mellitus with hemoglobin A1c goal of less than 8.0% ([facility]) Use to check sugars 3 times a day 100 Strip 1 10/30/2022 Active Accu-Chek Softclix LancetsIndications:Ty pe 2 diabetes mellitus with hemoglobin A1c goal of less than 8.0% ([facility]) Use to check sugars 3 times a [...] in the morning. Follow taper instructions from [facility]. 0 12/25/2022 Active guaiFENesin-Codeine 100-10 MG/5ML Oral [...] MG Oral TabletIndications:Cor onary artery disease involving teller coronary artery of teller heart without angina pectoris Take 1 Tablet by mouth in the morning. In the morning.. 90 Tablet 1 04/05/2023 Active Metoprolol Succinate ER 50 MG Oral Tablet Extended Release 24 Hour (toPROL XL)Indications:Harman ry artery disease involving teller coronary artery of teller heart without angina pectoris TAKE 1 & [...] as of this encounter (statuses as of 05/04/2023) Active Problems Problem Noted Date Bandemia 10/24/2021 [...] subarachnoid hemorrhage 10/04 Coronary artery disease involving teller heart without angina pectoris 10/04/2020 COPD, group [...] as of this encounter (statuses as of 05/04/2023) Resolved Problems Problem Noted Date Resolved Date [...] Calculus of kidney 08/20/2015 02/01/2018 Overview: right, [place] Vitamin D deficiency 01/31/2015 02/01/2018 Body [...] as of this encounter (statuses as of 05/04/2023) Immunizations Name Administration Dates Next Due COVID-19 mRNA, LNP-s, No Pre serve, 2-Dose Series ([employer]) 01/02/2021,12/05/2020 DTP Vaccine 07/19/2017,04/03/2014 Hepatitis B, [...] Telephone Encounter - Yanique Marrufo LPN - 05/04/2023 12:30 PM EDT Patient no longer using [facility]. Uses [facility]. * Telephone Encounter - Janet Allen - 05/03/2023 3:41 PM EDT Received Fax: Qty: 180 Tamsulosin HCL 0.4 mg capsule [id number] ALSO Received Fax: Qty: 90 Atorvastatin 80 mg tab [id number] documented in this encounter Plan of Treatment Upcoming Encounters Date Type Specialty Care Team Description 05/05/[facility] [address] [facility] [place] [facility] Health Maintenance Due Date Last Done Comments DISCUSS TOBACCO CESSATION (REFER TO SMARTSET #0106) 1970 HIV Screening 1985 Pneumococcal Vaccine: Pediatrics (0 to 5 Years) and At-Risk Patients (6 to 64 Years) (2 - PCV) 05/22/2010 05/22/2009 Cologuard 2015 Fecal Occult Blood Test 2015 Sigmoidoscopy 2015 *ADVANCE DIRECTIVE NOT ON FILE 02/03/2020 LUNG CANCER SCREENING - USE SMARTSET [id number] 2020 02/10/2019, 07/19/2017, 05/09/2017, Additional history exists [...] this encounter Medical Devices Implanted Type Area Machine Tank Operator Device Identifier Shelf Expiration Date Model / Serial / Lot Tube Flex 3.0x2.5 [id number] - [id number] Implanted:Qty: 1 on 12/07/2014 by Juancarlos Trinidad MD at [facility] Left: Finger LANDON : ORTHOPAEDICS 11/18/2015 [id number] / / [id number] documented as of this encounter Advance Directives [...] Care Power of Seasonal Recruiter Care Teams Wagon Driver Salesperson Relationship Specialty Start Date End Date Roberto Askew MD 200 [place] [address] PCP - General Internal Medicine 04/10/20 documented as of this encounter
--- OUTSIDE RECORDS SUMMARY | 2023-08-22 22:12 | External Medical Summary | Summary of Care ---
Author Name Unknown Organization [facility] Address [address] [place] [address] Phone [phone] Care Team Providers Care Ship'S Captain Name Role Phone Roberto Askew MD Primary Care Provider + Reason for Visit * Reason Onset Date Comments Medication Refill 05/05/2023 Atorvastatin Encounter Details Date Type Department Care Team Description 05/05/2023 Telephone General Internal Medicine [facility] 200 [facility] [place] [address] Madina Pollock MD 200 [place] [address] Medication Refill (Atorvastatin) Allergies Active Allergy Reactions Severity Noted Date [...] day as needed. 0 Active nystatin (NYSTOP) 987854 UNIT/GM powderIndications:Cut aneous candidiasis Apply topically to [...] C, by GOLD 2017 classification ([facility]),COPD, group D, by GOLD 2017 classification ([facility]) USE 2 PUFFS BY MOUTH EVERY 4 HOURS NEEDED SHORT OF BREATH 6.7 g 5 11/24/2021 Active Magnesium Oxide 400 (241.3 Mg) MG Oral TabletIndications:Cor onary artery disease involving little shell tribe coronary artery of little shell tribe heart without angina pectoris Take by [...] goal of less than 8.0% ([facility]) Use as directed. 1 Kit 0 10/30/2022 Active Accu-Chek Guide In Vitro Strip (Glucose Blood)Indications:Typ e 2 diabetes mellitus with hemoglobin A1c goal of less than 8.0% ([facility]) Use to check sugars 3 times a day 100 Strip 1 10/30/2022 Active Accu-Chek Softclix LancetsIndications:Ty pe 2 diabetes mellitus with hemoglobin A1c goal of less than 8.0% ([facility]) Use to check sugars 3 times [...] the morning. Follow taper instructions from [facility]. 0 12/25/2022 Active guaiFENesin-Codeine 100-10 MG/5ML Oral [...] MG Oral TabletIndications:Cor onary artery disease involving little shell tribe coronary artery of little shell tribe heart without angina pectoris Take 1 Tablet by mouth in the morning. In the morning.. 90 Tablet 1 04/05/2023 Active Metoprolol Succinate ER 50 MG Oral Tablet Extended Release 24 Hour (toPROL XL)Indications:Harman ry artery disease involving little shell tribe coronary artery of little shell tribe heart without angina pectoris TAKE 1 [...] subarachnoid hemorrhage 10/04 Coronary artery disease involving little shell tribe heart without angina pectoris 10/04/2020 COPD, [...] Calculus of kidney 08/20/2015 02/01/2018 Overview: right, [place] CT Vitamin D deficiency 01/31/2015 02/01/2018 Body [...] inactive term Other forms of migraine, rush sara mention of intractable migraine without mention of [...] mRNA, LNP-s, No Pre serve, 2-Dose Series ([employer]) 01/02/2021,12/05/2020 DTP Vaccine 07/19/2017,04/03/2014 Hepatitis B, [...] Care Team Description 05/06/2023 Laboratory Laboratory Processing [facility] Mobile Home Draw [address] [place] [address] Health Maintenance Due Date Last Done Comments DISCUSS TOBACCO CESSATION (REFER TO SMARTSET #7813) 1970 HIV Screening 1985 Pneumococcal Vaccine: Pediatrics (0 to 5 Years) and At-Risk Patients (6 to 64 Years) (2 - PCV) 05/22/2010 05/22/2009 Cologuard 2015 Fecal Occult Blood Test 2015 Sigmoidoscopy 2015 *ADVANCE DIRECTIVE NOT ON FILE 02/03/2020 LUNG CANCER SCREENING - USE SMARTSET [id number] 2020 02/10/2019, 07/19/2017, 05/09/2017, Additional history exists [...] this encounter Medical Devices Implanted Type Area Unit Secretary Device Identifier Shelf Expiration Date Model / Serial / Lot Tube Flex 3.0x2.5 [id number] - [id number] Implanted:Qty: 1 on 12/07/2014 [place]ancarlos Trinidad [place] [facility] [place] Finger [employer]ON : ORTHOPAEDICS 11/18/2015 [id number] / / [id number] documented as of this encounter Advance Directives [...] patient have Health Care Power of Home Hospice Aide? No Healthcare Agents on File Name Relationship Healthcare Agent Relationship Communication Estrella Seth Other - (no specific identity) Health Care Power of Home Hospice Aide Care Teams Ship'S Captain Relationship Specialty Start Date End Date Roberto Askew MD [address] [place] [address], [place] [address] PCP - General Internal Medicine 04/10/20 documented as of this encounter
--- OUTSIDE RECORDS SUMMARY | 2023-08-22 22:13 | External Medical Summary | Summary of Care ---
Author Name Unknown Organization [facility] Address [address] [place] [address] Phone [phone] Care Team Providers Care Staff Rn Name Role Phone Roberto Griffin MD Primary Care Provider + Reason for Visit * Reason Comments New Med Request Encounter Details Date Type Department Care Team Description 04/23/2023 Refill General Internal Medicine [facility] [address] [place] [address] Roberto Griffin MD [address] [place] [address] History of pulmonary embolism Allergies Active Allergy Reactions Severity Noted Date [...] as of this encounter (statuses as of 04/23/2023) Medications Medication Sig Dispensed Refills Start Date [...] day as needed. 0 Active nystatin (NYSTOP) 156316 UNIT/GM powderIndications:C utaneous candidiasis Apply topically to [...] :COPD, group C, by GOLD 2017 classification ([facility]),COPD, group D, by GOLD 2017 classification ([facility]) USE 2 PUFFS BY MOUTH EVERY 4 HOURS NEEDED SHORT OF BREATH 6.7 g 5 2 Active Magnesium Oxide 400 (241.3 Mg) MG Oral TabletIndications:C oronary artery disease involving [place] coronary artery of [place] heart without angina pectoris Take by mouth [...] hemoglobin A1c goal of less than 8.0% ([facility]) Use as directed. 1 Kit 0 3 Active Accu-Chek Guide In Vitro Strip (Glucose Blood)Indications:T ype 2 diabetes mellitus with hemoglobin A1c goal of less than 8.0% ([facility]) Use to check sugars 3 times a day 100 Strip 1 3 Active Accu-Chek Softclix LancetsIndications: Type 2 diabetes mellitus with hemoglobin A1c goal of less than 8.0% ([facility]) Use to check sugars 3 [...] the morning. Follow taper instructions from [facility]. 0 3 Active guaiFENesin-Codeine 100-10 MG/5ML [...] MG Oral TabletIndications:C oronary artery disease involving [place] coronary artery of [place] heart without angina pectoris Take 1 Tablet by mouth in the morning. In the morning.. 90 Tablet 1 3 Active Metoprolol Succinate ER 50 MG Oral Tablet Extended Release 24 Hour (toPROL XL)Indications:Freddie nary artery disease involving [place] coronary artery of [place] heart without angina pectoris TAKE 1 & [...] the morning. 60 Capsule 1 3 Active Atorvastatin Calcium 80 MG Oral Tablet (Lipitor) Take 1 Tablet by mouth in the morning. To take in the afternoon.. 30 Tablet 1 3 Active Famotidine 20 MG Oral [...] [facility]IN [facility]. 90 Tablet 3 3 Active Warfarin Sodium 5 MG Oral Tablet (Coumadin)Indicatio ns:History of pulmonary embolism TAKE 1/2 TO 1 TABLET EVERY DAY DIRECTED BY [facility]ADIN CLINIC. 90 Tablet 3 3 023 Discontinued documented as of this encounter (statuses as of 04/23/2023) Active Problems Problem Noted Date Bandemia 10/24/2021 [...] subarachnoid hemorrhage 10/04 Coronary artery disease involving [place] heart without angina pectoris 10/04/2020 COPD, group [...] as of this encounter (statuses as of 04/23/2023) Resolved Problems Problem Noted Date Resolved Date [...] 40.0-44.9, adult 10/04/2017 10/04/2017 Overview: bmi= 44.48 1/15/17 Opioid dependence on mainten ance agonist therapy, [...] Calculus of kidney 08/20/2015 02/01/2018 Overview: right, [place] CT Vitamin D deficiency 01/31/2015 02/01/2018 [...] as of this encounter (statuses as of 04/23/2023) Immunizations Name Administration Dates Next Due COVID-19 mRNA, LNP-s, No Pre serve, 2-Dose Series ([employer]) 01/02/2021,12/05/2020 DTP Vaccine 07/19/2017,04/03/2014 Hepatitis B, 20+ [...] encounter Miscellaneous Notes * Telephone Encounter - Shannon Bell RPh - 04/23/2023 3:13 PM EDTSigned Prescriptions: Disp Refills Warfarin Sodium 5 MG Oral Tablet (Coumadin)90 Tab*3 Sig: TAKE 1/2 TO 1 TABLET EVERY DAY DIRECTED BY [facility]ADIN CLINIC.Authorizing Provider: ROBERTO GRIFFIN User: SHANNON BELL documented in this encounter Plan of Treatment Upcoming Encounters Date Type Specialty Care Team Description 04/27/2023 Laboratory Laboratory Processing [facility] [place] Draw [address] [facility] [place] [address] 04/28/2023 [facility] [address] 60 [facility] [place] [address] Health Maintenance Due Date Last Done Comments DISCUSS TOBACCO CESSATION (REFER TO SMARTSET #3291) 1970 HIV Screening 1985 Pneumococcal Vaccine: Pediatrics (0 to 5 Years) and At-Risk Patients (6 to 64 Years) (2 - PCV) 05/22/2010 05/22/2009 Cologuard 2015 Fecal Occult Blood Test 2015 Sigmoidoscopy 2015 *ADVANCE DIRECTIVE NOT ON FILE 02/03/2020 LUNG CANCER SCREENING - USE SMARTSET 00998 2020 02/10/2019, 07/19/2017, 05/09/2017, Additional history exists [...] this encounter Medical Devices Implanted Type Area Trailer Mechanic Device Identifier Shelf Expiration Date Model / Serial / Lot Tube Flex 3.0x2.5 [id number] - [id number] Implanted:Qty: 1 on 12/07/2014 [place]arlos [place] [facility] [place] Finger [employer] : ORTHOPAEDICS 11/18/2015 [id number] / / [id number] documented as of this encounter Visit Diagnoses Diagnosis History of pulmonary embolism Personal history of pulmonary embolism documented in [...] the patient have Health Care Power of Nut Grinder? No Healthcare Agents on File Name Relationship Healthcare Agent Relationship Communication Estrella Seth Other - (no specific identity) Health Care Power of Nut Grinder Care Teams Staff Rn Relationship Specialty Start Date End Date Roberto Griffin MD [address] [place] [address], [place] [address] PCP - General Internal Medicine 04/10/20 documented as of this encounter
--- OUTSIDE RECORDS SUMMARY | 2023-08-22 22:13 | External Medical Summary | Summary of Care ---
Author Name Unknown Organization [facility] Address [address] [place] [address] Phone [phone] Care Team Providers Care Qa Specialist Name Role Phone Roberto Griffin MD Primary Care Provider + Reason for Visit * Reason Onset Date Comments Medication Refill 04/21/2023 Encounter Details Date Type Department Care Team Description 04/21/2023 Refill General Internal Medicine [facility] 200 [facility] [place] [address] Roberto Griffin MD [address] [place] [address] Gastroesophageal reflux disease without esophagitis; BPH with obstruction/lower urinary tract symptoms Allergies Active Allergy Reactions Severity Noted Date [...] as of this encounter (statuses as of 04/21/2023) Medications Medication Sig Dispensed Refills Start Date [...] day as needed. 0 Active nystatin (NYSTOP) 148991 UNIT/GM powderIndications:Cu taneous candidiasis Apply topically to [...] COPD, group C, by GOLD 2017 classification (HCC),COPD, group D, by GOLD 2017 classification ([facility]) USE 2 PUFFS BY MOUTH EVERY 4 HOURS NEEDED SHORT OF BREATH 6.7 g 5 2 Active Magnesium Oxide 400 (241.3 Mg) MG Oral TabletIndications:Co ronary artery disease involving enterprise coronary artery of enterprise heart without angina pectoris Take by mouth [...] the morning. Follow taper instructions from [facility]. 0 3 Active guaiFENesin-Codeine 100-10 MG/5ML Oral [...] MG Oral TabletIndications:Co ronary artery disease involving enterprise coronary artery of enterprise heart without angina pectoris Take 1 Tablet by mouth in the morning. In the morning.. 90 Tablet 1 3 Active Metoprolol Succinate ER 50 MG Oral Tablet Extended Release 24 Hour (toPROL XL)Indications:Coron uziel artery disease involving enterprise coronary artery of enterprise heart without angina pectoris TAKE 1 & 1/2 TABLETS by mouth 2 TIMES A DAY 270 Tablet 1 3 Active Warfarin Sodium 5 MG Oral Tablet (Coumadin)Indication s:History of pulmonary embolism TAKE 1/2 TO 1 TABLET EVERY DAY DIRECTED BY [facility]ADIN CLINIC. 90 Tablet 3 3 Active Folic Acid 1 MG Oral [...] THE MORNING 90 Tablet 1 3 Active Omeprazole 20 MG Oral Capsule Delayed Release (PriLOSEC) TAKE ONE CAPSULE BY MOUTH 1 HOUR BEFORE THE 1ST MEAL OF THE DAY 90 Capsule 1 3 04/21/20 23 Discontinu ed(Refill) Famotidine 20 MG Oral Tablet (Pepcid)Indications: Gastroesophageal reflux disease without esophagitis TAKE 1 TABLET BY MOUTH EVERY MORNING 90 Tablet 1 3 04/21/20 23 Discontinu ed(Refill) Finasteride 5 MG Oral Tablet (Proscar)Indications :BPH with obstruction/lower urinary tract symptoms TAKE ONE TABLET BY MOUTH EVERY DAY INTHE MORNING 90 Tablet 1 3 04/21/20 23 Discontinu ed(Refill) Tamsulosin HCl 0.4 MG Oral Capsule (Flomax) Take 2 Capsules by mouth in the morning. 60 Capsule 1 3 04/21/20 23 Discontinu ed(Refill) Atorvastatin Calcium 80 MG Oral Tablet (Lipitor) Take 1 Tablet by mouth in the morning. To take in the afternoon.. 30 Tablet 1 3 04/21/20 23 Discontinu ed(Refill) documented as of this encounter (statuses as of 04/21/2023) Active Problems Problem Noted Date Bandemia 10/24/2021 [...] 01/24/2021 Opioid dependence, uncomplicated 021 History of MA (myocardial infarction) Morbid obesity with BMI of 50.0-59.9, ad ult 10/04/2020 History of subdural hematoma 10/04/2020 Gastroesophageal reflux disease without esophagitis 10/04/2020 History of subarachnoid hemorrhage 10/04 Coronary artery disease involving enterprise heart without angina pectoris 10/04/2020 COPD, group [...] as of this encounter (statuses as of 04/21/2023) Resolved Problems Problem Noted Date Resolved Date [...] Calculus of kidney 08/20/2015 02/01/2018 Overview: right, [place] CT Vitamin D deficiency 01/31/2015 02/01/2018 Body [...] as of this encounter (statuses as of 04/21/2023) Immunizations Name Administration Dates Next Due COVID-19 [...] Telephone Encounter - Roberto Griffin MD - 04/21/2023 1:34 PM EDTSigned Prescriptions: Disp Refills Omeprazole 20 MG Oral Capsule Delayed Rele*90 Cap*1 Sig: TAKE ONE CAPSULE BY MOUTH 1 HOUR BEFORE THE 1ST MEAL OF THE DAY Authorizing Provider: ROBERTO GRIFFIN Tamsulosin HCl 0.4 MG Oral Capsule (Flomax)60 Cap*1 Sig: Take 2 Capsules by mouth in the morning. Authorizing Provider: ROBERTO GRIFFIN Atorvastatin Calcium 8 0 MG Oral Tablet (Li*30 Tab*1 Sig: Take 1 Tablet by mouth in the morning. To take in the afternoon.. Authorizing Provider: ROBERTO GRIFFIN Famotidine 20 MG Oral Tablet (Pepcid) 90 Tab*1 Sig: Take 1 Tablet by mouth in the morning. Authorizing Provider: ROBERTO GRIFFIN Finasteride 5 MG Oral Tablet (Proscar) 90 Tab*1 Sig: TAKE ONE TABLET BY MOUTH EVERY DAY IN THE [facility] Authorizing Provider: ROBERTO GRIFFIN * Telephone Encounter - Yanique Marrufo LPN - 04/21/2023 1:24 PM EDTPending Prescriptions: Disp Refills Omeprazole 20 MG Oral Capsule Delayed Rele*90 Cap*1 Sig: TAKE ONE CAPSULE BY MOUTH 1 HOUR BEFORE THE 1ST MEAL OF THE DAY Tamsulosin HCl 0.4 MG Oral Capsule (Flomax)60 Cap*1 Sig: Take 2 Capsules by mouth in the morning. Atorvastatin Calcium 80 MG Oral Tablet (Li*30 Tab*1 Sig: Take 1 Tablet by mouth in the morning. To take in the afternoon.. Famotidine 20 MG Oral Tablet (Pepcid) 90 Tab*1 Sig: Take 1 Tablet by mouth in the morning. Finasteride 5 MG Oral Tablet (Proscar) 90 Tab*1 Sig: TAKE ONE TABLET BY MOUTH EVERY DAY IN THE MORNING * Telephone Encounter - Yanique Marrufo LPN - 04/21/2023 1:24 PM EDT Combined med requests from other encounters. * Telephone Encounter - Milka Alegria - 04/21/2023 12:21 PM EDT Did you pend patient's preferred pharmacy and medication before forwarding?yes Pharmacy: [facility]-[address]- [place] Pending Prescriptions: Disp Refills Omeprazole 20 MG Oral Capsule Delayed Rel*90 Cap*1 Last Visit: 08/10/2022 (in office), 12/10/2021 (telemedicine) Next Visit: Visit date not found If no future appointments scheduled, and last appointment is greater than a year ago, please schedule patient for a follow-up appointment Last date the medication was ordered: 12/04/22 Is this request for a controlled substance?No [...] Care Team Description 04/27/2023 Laboratory Laboratory Processing [facility] Mobile Home Draw [address] [place] [address] 04/28/2023 [facility] [address] [place] [address] Health Maintenance Due Date Last Done Comments DISCUSS TOBACCO CESSATION (REFER TO SMARTSET #8539) 1970 HIV Screening 1985 Pneumococcal Vaccine: Pediatrics (0 to 5 Years) and At-Risk Patients (6 to 64 Years) (2 - PCV) 05/22/2010 05/22/2009 Cologuard 2015 Fecal Occult Blood Test 2015 Sigmoidoscopy 2015 *ADVANCE DIRECTIVE NOT ON FILE 02/03/2020 LUNG CANCER SCREENING - USE SMARTSET [id number] 2020 02/10/2019, 07/19/2017, 05/09/2017, Additional history exists [...] this encounter Medical Devices Implanted Type Area Plc Programmer Device Identifier Shelf Expiration Date Model / Serial / Lot Tube Flex 3.0x2.5 [id number] - [id number] Implanted:Qty: 1 on 12/07/2014 [place]arlos [place]idad [place] [facility] [place] Finger [employer] : ORTHOPAEDICS 11/18/2015 [id number] / / [id number] documented as of this encounter Visit Diagnoses Diagnosis Gastroesophageal reflux disease without esophagitis Esophageal reflux BPH with obstruction/lower urinary tract symptoms Hypertrophy of prostate with urinary obstruction and other lower urinary tract symptoms (LUTS) documented in this encounter Advance Directives Latest [...] the patient have Health Care Power of Agency Sales Director? No Healthcare Agents on File Name Relationship Healthcare Agent Relationship Communication Estrella Seth Other - (no specific identity) Health Care Power of Agency Sales Director Care Teams Qa Specialist Relationship Specialty Start Date End Date Roberto Griffin MD [address] [place] [id number] PCP - General Internal Medicine 04/10/20 documented as of this encounter
--- OUTSIDE RECORDS SUMMARY | 2023-08-22 22:13 | External Medical Summary ---
Author Name Unknown Address Unknown Organization K0[facility] [address] [place] [id number] Laboratory Report Ordering Provider Test Date Status ABATULIO 04/27/2023 08:56:00 Final Standing order for pt/inr. < br/>Please draw pt/inr every 1 to 4 weeks as requested
Results to [facility]

Warfarin Therapy
INR: 2.0-3.0 conventional anticoagulation
INR: 2.5-3.5 high intensity anticoagulation Observation Date Value Abnormality Reference (Units ) Status PT 04/27/2023 08:56:00 38.0 Above high normal 11 .6-15.2 (seconds) Final INR 04/27/2023 08:56:00 3.8 Above high normal 0. 8-1.2 Final Performing Location [facility] [address] [place] [id number]
--- OUTSIDE RECORDS SUMMARY | 2023-08-22 22:13 | External Medical Summary | Summary of Care ---
Author Name Unknown Organization [facility] Address [address] [place] [address] Phone [phone] Care Team Providers Care Supervisor Tree Trimming Name Role Phone Roberto Askew MD Primary Care Provider + Reason for Visit * Reason Onset Date Comments Hospital Follow-Up 04/16/2023 Encounter Details Date Type Department Care Team Description 04/16/2023 Telephone General Internal Medicine [facility] [address] [facility] [place] [address] Roberto Askew MD [address] [place] [address] Hospital Follow-Up Allergies Active Allergy Reactions Severity [...] as of this encounter (statuses as of 04/22/2023) Medications Medication Sig Dispensed Refills Start Date [...] day as needed. 0 Active nystatin (NYSTOP) 199739 UNIT/GM powderIndications:Cu taneous candidiasis Apply topically to [...] COPD, group C, by GOLD 2017 classification ([facility]),COPD, group D, by GOLD 2017 classification ([facility]) USE 2 PUFFS BY MOUTH EVERY 4 HOURS NEEDED SHORT OF BREATH 6.7 g 5 2 Active Magnesium Oxide 400 (241.3 Mg) MG Oral TabletIndications:Co ronary artery disease involving [place] coronary artery of [place] heart without angina pectoris Take by mouth [...] in the morning. [facility]. 0 3 Active guaiFENesin-Codeine 100-10 MG/5ML [...] MG Oral TabletIndications:Co ronary artery disease involving [place] coronary artery of [place] heart without angina pectoris Take 1 Tablet by mouth in the morning. In the morning.. 90 Tablet 1 3 Active Metoprolol Succinate ER 50 MG Oral Tablet Extended Release 24 Hour (toPROL XL)Indications:Coron uziel artery disease involving [place] coronary artery of [place] heart without angina pectoris TAKE 1 & [...] Tablet in the morning. 90 Tablet 2 2 04/21/20 23 Discontinu ed(Refill) Omeprazole 20 MG Oral Capsule Delayed Release [...] as of this encounter (statuses as of 04/22/2023) Active Problems Problem Noted Date Bandemia 10/24/2021 [...] subarachnoid hemorrhage 10/04 Coronary artery disease involving [place] heart without angina pectoris 10/04/2020 COPD, group [...] as of this encounter (statuses as of 04/22/2023) Resolved Problems Problem Noted Date Resolved Date [...] Calculus of kidney 08/20/2015 02/01/2018 Overview: right, [place] CT Vitamin D deficiency 01/31/2015 02/01/2018 Body [...] as of this encounter (statuses as of 04/22/2023) Immunizations Name Administration Dates Next Due COVID-19 mRNA, LNP-s, No Pre serve, 2-Dose Series (ip.access) 01/02/2021,12/05/2020 DTP Vaccine 07/19/2017,04/03/2014 Hepatitis B, 20+ [...] * Telephone Encounter - DARIA Vega - 04/22/2023 12:29 PM EDT Called pt, he said he can't schedule anything until his daughter's SUV gets fixed because "he's toofat to fit in his own car". 04/22 JAT * Telephone Encounter - DARIA Vega - 04/20/2023 3:55 PM EDT LMOM re: hosp f/u 04/20 JAT * Telephone Encounter - Roberto Askew MD - 04/16/2023 4:01 PM EDT Noted, agree with hospital f/u with me please, if I refer to sleep med, will he go? * Telephone Encounter - Drake Hanson RN - 04/16/2023 3:27 PM EDT Patient discharged home from [facility] after treatment for COPD exacerbation and Acute metabolic encephalopathy. It is recommended that patient undergo a sleep study with noted Hypercarbic respiratory failure: Suspected degree of obesity hypoventilation syndrome. Patient declined to have hospital followup scheduled, citing difficulty with transportation. [place] case mgmt provided info on public transportation and encouraged him to speak with his director of casework department through his insurance. Thank you documented in this encounter Plan of Treatment Upcoming Encounters Date Type Specialty Care Team Description 04/27/2023 Laboratory Laboratory Processing [facility], [facility] Mobile Home Draw [address] [place] [address] 04/28/2023 [facility] [address] [place] [address] Health Maintenance Due Date Last Done Comments DISCUSS TOBACCO CESSATION (REFER TO SMARTSET #3291) 1970 HIV Screening 1985 Pneumococcal Vaccine: Pediatrics (0 to 5 Years) and At-Risk Patients (6 to 64 Years) (2 - PCV) 05/22/2010 05/22/2009 Cologuard 2015 Fecal Occult Blood Test 2015 Sigmoidoscopy 2015 *ADVANCE DIRECTIVE NOT ON FILE 02/03/2020 LUNG CANCER SCREENING - USE SMARTSET [id number] 2020 02/10/2019, 07/19/2017, 05/09/2017, Additional history exists [...] this encounter Medical Devices Implanted Type Area Record Changer Tester Device Identifier Shelf Expiration Date Model / Serial / Lot Tube Flex 3.0x2.5 [id number] - [id number] Implanted:Qty: 1 on 12/07/2014 by Juancarlos Trinidad MD at [facility] Left: Finger LANDON : ORTHOPAEDICS 11/18/2015 [id number] / / [id number] documented as of this encounter Advance Directives [...] the patient have Health Care Power of Suspender Cutter? No Healthcare Agents on File Name Relationship Healthcare Agent Relationship Communication Estrella Seth Other - (no specific identity) Health Care Power of Suspender Cutter Care Teams Supervisor Tree Trimming Relationship Specialty Start Date End Date Roberto Askew MD [address] [place] [id number] PCP - General Internal Medicine 04/10/20 documented as of this encounter
--- OUTSIDE RECORDS SUMMARY | 2023-08-22 22:13 | External Medical Summary | Summary of Care ---
Author Name Unknown Organization [facility] Address [address] [place] [address] Phone [phone] Care Team Providers Care Stencil Machine Operator Name Role Phone Roberto Askew MD Primary Care Provider + Reason for Visit * Reason Onset Date Comments Medication Refill 04/21/2023 Encounter Details Date Type Department Care Team Description 04/21/2023 Refill General Internal Medicine [facility] 200 [facility] [place] [address] Roberto Askew MD [address] [place] [address] Allergies Active Allergy Reactions Severity Noted Date [...] day as needed. 0 Active nystatin (NYSTOP) 252283 UNIT/GM powderIndications:Cut aneous candidiasis Apply topically to [...] MG Oral TabletIndications:Cor onary artery disease involving [place] coronary artery of [place] heart without angina pectoris Take by mouth [...] the morning. Follow taper instructions from [facility]. 0 12/25/2022 Active guaiFENesin-Codeine 100-10 MG/5ML [...] MG Oral TabletIndications:Cor onary artery disease involving [place] coronary artery of [place] heart without angina pectoris Take 1 Tablet by mouth in the morning. In the morning.. 90 Tablet 1 04/05/2023 Active Metoprolol Succinate ER 50 MG Oral Tablet Extended Release 24 Hour (toPROL XL)Indications:Harman ry artery disease involving [place] coronary artery of [place] heart without angina pectoris TAKE 1 & 1/2 TABLETS by mouth 2 TIMES A DAY 270 Tablet 1 04/05/2023 Active Warfarin Sodium 5 MG Oral Tablet (Coumadin)Indications :History of pulmonary embolism TAKE 1/2 TO 1 TABLET EVERY DAY DIRECTED BY COUMADIN CLINIC. 90 Tablet 3 04/05/2023 Active documented as of this encounter (statuses [...] subarachnoid hemorrhage 10/04 Coronary artery disease involving [place] heart without angina pectoris 10/04/2020 COPD, group [...] Calculus of kidney 08/20/2015 02/01/2018 Overview: right, [place] CT Vitamin D deficiency 01/31/2015 02/01/2018 Body [...] encounter Miscellaneous Notes * Telephone Encounter - Milka Alegria - 04/21/2023 12:33 PM EDT Script clarification 1 Tab in AM or 1 tab in Afternoon Did you pend patient's preferred pharmacy and medication before forwarding?yes Pharmacy: [facility] [address] [facility] [place] Pending Prescriptions: Disp Refills Atorvastatin Calcium 80 [...] appointment Last date the medication was ordered: 04/07/23 Is this request for a controlled substance?No [...] Care Team Description 04/27/2023 Laboratory Laboratory Processing [facility], [facility] Mobile Home Draw [address] [place] [address] 04/28/2023 [facility] [address] [place] [address] Health Maintenance Due Date Last Done Comments DISCUSS TOBACCO CESSATION (REFER TO SMARTSET #0033) 1970 HIV Screening 1985 Pneumococcal Vaccine: Pediatrics (0 to 5 Years) and At-Risk Patients (6 to 64 Years) (2 - PCV) 05/22/2010 05/22/2009 Cologuard 2015 Fecal Occult Blood Test 2015 Sigmoidoscopy 2015 *ADVANCE DIRECTIVE NOT ON FILE 02/03/2020 LUNG CANCER SCREENING - USE SMARTSET [id number] 2020 02/10/2019, 07/19/2017, 05/09/2017, Additional history exists [...] this encounter Medical Devices Implanted Type Area Soil Biology Teacher Device Identifier Shelf Expiration Date Model / Serial / Lot Tube Flex 3.0x2.5 [id number] - [id number] Implanted:Qty: 1 on 12/07/2014 by Juancarlos Trinidad MD at [facility] Left: Finger LANDON : ORTHOPAEDICS 11/18/2015 [id number] / / [id number] documented as of this encounter Advance Directives [...] the patient have Health Care Power of Lacquer Spray Booth Operator? No Healthcare Agents on File Name Relationship Healthcare Agent Relationship Communication Estrella Seth Other - (no specific identity) Health Care Power of Lacquer Spray Booth Operator Care Teams Stencil Machine Operator Relationship Specialty Start Date End Date Roberto Askew MD [address] [place] [address] PCP - General Internal Medicine 04/10/20 documented as of this encounter
--- OUTSIDE RECORDS SUMMARY | 2023-08-22 22:13 | External Medical Summary | Summary of Care ---
Author Name Unknown Organization [facility] Address [address] [place] [address] Phone [phone] Care Team Providers Care Content Management Specialist Name Role Phone Roberto Askew MD Primary Care Provider + Reason for Visit * Reason Comments Dosage Adjustment Via Phone (anticoag Cl inic) * Evaluate & Treat - Unlimited Visits (Within 3 days (urgent)) - Pending Review Specialty Diagnoses / Procedures Referred By Contac t Referred To Contact ANTI-COAG CLINIC / Pharmacy Diagnoses History of pulmonary embolism Roberto Askew MD [address] [place] [address] Referral ID Status Reason Start Date Expiration Date Visits Requested Visits Authorized [id number] Pending Review Specialty Services Required 04/28/2023 99 99 Encounter Details Date Type Department Care Team Description 04/28/2023 Anticoagulation Pharmacy Call Center [facility] [address] [place] [address] [facility] [address] [facility] [place] [address] History of pulmonary embolism* Allergies Active Allergy [...] day as needed. 0 Active nystatin (NYSTOP) 283508 UNIT/GM powderIndications:Cut aneous candidiasis Apply topically to [...] MG Oral TabletIndications:Cor onary artery disease involving [place] coronary artery of [...] Solution (Duoneb)Indications:C OPD, severity to be determined ([facility]),Wheezing Inhale 3 mL via nebulizer in the [...] in the morning. Follow taper instructions from [facility]. 0 12/25/2022 Active guaiFENesin-Codeine 100-10 MG/5ML Oral [...] MG Oral TabletIndications:Cor onary artery disease involving [place] coronary artery of [place] heart without angina pectoris Take 1 Tablet by mouth in the morning. In the morning.. 90 Tablet 1 04/05/2023 Active Metoprolol Succinate ER 50 MG Oral Tablet Extended Release 24 Hour (toPROL XL)Indications:Harman ry artery disease involving [place] coronary artery of [...] the morning. 60 Capsule 1 04/21/2023 Active Atorvastatin Calcium 80 MG Oral Tablet (Lipitor) Take 1 Tablet by mouth in the morning. To take in the afternoon.. 30 Tablet 1 04/21/2023 Active Famotidine 20 MG Oral [...] Calculus of kidney 08/20/2015 02/01/2018 Overview: right, [place] CT Vitamin D deficiency 01/31/2015 02/01/2018 Body [...] tobacco 09/03/2014 10/04/2017 Bronchitis, complicated 06/29/2014 01/31/20 Acute respiratory failure with hypoxia 4 01/30/2015 [...] mRNA, LNP-s, No Pre serve, 2-Dose Series ([employer]) 01/02/2021,12/05/2020 DTP Vaccine 07/19/2017,04/03/2014 Hepatitis B, 20+ [...] as of this encounter Progress Notes * Mala Walsh, rig welder - 04/28/2023 2:08 PM EDT Contacts Type Contact Phone/Fax 04/28/2023 02:02 PM EDT Phone (Outgoing) Stanton Milner (Self) [phone] (H) Spoke to Patient Subjective Patient Findings [...] communicated as noted by Pharmacist: Yes ARTEM BEVERLY 04/28/2023, 2:09 PM * Becky Goodwin RPh - 04/28/2023 9:51 AM EDT Images from the original note were not included. Coumadin Clinic (region specific) Objective Current Warfarin Dose As of 04/28/2023 Warfarin maintenance plan: 2.5 mg (5 mg x 0.5) every Tue, Micki, Sat; 5 mg (5 mg x 1) all other days INR Result As of 04/28/2023 INR goal: 2.0-3.0 INR used for dosin.8 (04/27/2023) Assessment & Plan Warfarin Plan As of 04/28/2023 Full warfarin instructions: 04/28: Hold; Otherwise 5 mg every Mon, Wed, Fri; 2.5 mg all other days Next INR check: 05/04/2023 Repeat PT/INR in 1 week(s) Weekly dose: decreased Additional Dosing Information: Description [facility]) - pt prefers [facility] at this time Tech to contact patient with dose instructions as noted. Becky Goodwin RPh 04/28/2023, 9:51 AM documented in this encounter Plan of Treatment Upcoming Encounters Date Type Specialty Care Team Description 05/04/2023 Laboratory Laboratory Processing [facility] Mobile Home Draw [address] [place] [address] 05/05/2023 [facility] [address] [place] [address] Scheduled Referrals Name Type Priority Associated Diagnoses Orde r Schedule ANTI-COAGULATION REFERRAL OP Referral Within 3 days (urgent) History of pulmonary embolism Ordered: 04/28/2023 Health Maintenance Due Date Last Done Comments DISCUSS TOBACCO CESSATION (REFER TO SMARTSET #9839) 1970 HIV Screening 1985 Pneumococcal Vaccine: Pediatrics (0 to 5 Years) and At-Risk Patients (6 to 64 Years) (2 - PCV) 05/22/2010 05/22/2009 Cologuard 2015 Fecal Occult Blood Test 2015 Sigmoidoscopy 2015 *ADVANCE DIRECTIVE NOT ON FILE 02/03/2020 LUNG CANCER SCREENING - USE SMARTSET [id number] 2020 02/10/2019, 07/19/2017, 05/09/2017, Additional history exists [...] this encounter Medical Devices Implanted Type Area Bulking Machine Operator Device Identifier Shelf Expiration Date Model / Serial / Lot Tube Flex 3.0x2.5 [id number] - [id number] Implanted:Qty: 1 on 12/07/2014 by Juancarlos Trinidad MD at [facility] Left: Finger LANDON : ORTHOPAEDICS 11/18/2015 [id number] / / [id number] documented as of this encounter Visit Diagnoses [...] the patient have Health Care Power of Director Agricultural Services? No Healthcare Agents on File Name Relationship Healthcare Agent Relationship Communication Estrella Seth Other - (no specific identity) Health Care Power of Director Agricultural Services Care Teams Content Management Specialist Relationship Specialty Start Date End Date Roberto Askew MD [address] [place] [address], [place] [address] PCP - General Internal Medicine 04/10/20 documented as of this encounter
--- OUTSIDE RECORDS SUMMARY | 2023-08-22 22:13 | External Medical Summary | Summary of Care ---
Author Name Unknown Organization [facility] Address [address] [place] [address] Phone [phone] Care Team Providers Care Netbackup Engineer Name Role Phone Roberto Askew MD Primary Care Provider + Reason for Referral * Evaluate & Treat - Unlimited Visits (Within 3 days (urgent)) - Pending Review Specialty Diagnoses / Procedures Referred By Lamar mcconnell Referred To Contact ANTI-COAG CLINIC / Pharmacy Diagnoses History of pulmonary embolism Roberto Askew MD [address] [place] [address] Referral ID Status Reason Start Date Expiration Date Visits Requested Visits Authorized [id number] Pending Review Specialty Services Required 04/28/2023 99 99 Question Answer Referral Priority Within 3 days (urgent) Comments Indication for Anticoagulation: 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 Expected duration of Anticoagulation therapy: Lifetime Target INR range (indicate desired range): Treatment of pulmonary embolus 2.0 - 3.0 Referral for Low Molecular Weight Therapy: N/A Minimum frequency patient should be seen in person for medication management: as appropriate per clinical condition and patient status By my signature, I understand that my patient Satnton Milner will have his medication therapy managed by the [facility] ([facility]) per established policies, procedures, and protocols. I also certify that this referral may serve as an initiation of service for the management of drug therapy in the above noted patient. [facility] providers will be responsible for scheduling patient visits, obtaining appropriate laboratory studies, and adjusting medication management therapy per patient's need, in addition to those roles spelled out in the clinic policy, procedures, and drug management protocols. I understand that the service provided by the [facility] is voluntary and have informed patient that they can refuse the service at their discretion. I am aware that the [facility] Clinic will provide me with a copy of the patient encounter via my [employer]. I authorize the [facility] Clinic to carry out these activities on my behalf. I consider this program to be a necessary part of the patient's medical care. Roberto Askew MD Reason for Visit * Reason Onset Date Comments Referral 04/28/2023 Encounter Details Date Type Department Care Team Description 04/28/2023 Telephone Pharmacy Call Center [address] [facility] [place] [address] [facility] [address] [facility] [place] [address] Referral Allergies Active Allergy Reactions Severity Noted Date [...] day as needed. 0 Active nystatin (NYSTOP) 905910 UNIT/GM powderIndications:Cut aneous candidiasis Apply topically to affected area 3 times a day. 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 1 Kit 0 10/30/2022 [...] 180 Tablet 1 12/10/2022 Active Potassium Chloride Etrra ER 20 MEQ Oral Tablet Extended ReleaseIndications:Hy pokalemia TAKE ONE TABLET BY MOUTH EVERY MORNING AND AT BEDTIME 60 Tablet 3 12/09/2022 Active Ondansetron HCl 4 MG Oral Tablet (Zofran) TAKE 1 TABLET EVERY 8 HOURS NEEDED FOR NAUSEA 20 Tablet 1 12/24/2022 Active predniSONE 10 MG Oral Tablet (Deltasone) Take 1 Tablet by mouth in the morning. Follow taper instructions from [facility]. 0 12/25/2022 Active guaiFENesin-Codeine 100-10 MG/5ML [...] MG Oral TabletIndications:Cor onary artery disease involving [place] coronary artery of [place] heart without angina pectoris Take 1 Tablet by mouth in the morning. In the morning.. 90 Tablet 1 04/05/2023 Active Metoprolol Succinate ER 50 MG Oral Tablet Extended Release 24 Hour (toPROL XL)Indications:Harman ry artery disease involving [place] coronary artery of [place] heart without angina pectoris TAKE 1 & [...] subarachnoid hemorrhage 10/04 Coronary artery disease involving [place] heart without angina pectoris 10/04/2020 COPD, group [...] Calculus of kidney 08/20/2015 02/01/2018 Overview: right, [place] CT Vitamin D deficiency 01/31/2015 02/01/2018 Body [...] mRNA, LNP-s, No Pre serve, 2-Dose Series ([employer]) 01/02/2021,12/05/2020 DTP Vaccine 07/19/2017,04/03/2014 Hepatitis B, 20+ [...] encounter Miscellaneous Notes * Telephone Encounter - Becky Goodwin RPh - 04/28/2023 9:52 AM EDT Please review and sign the pending referral for [facility] to continue managing patient's coumadin dosing and monitoring on your behalf. Thank You Becky Goodwin PharmD Clinical Pharmacist [facility] ([facility]) (formerly Telepharmacy) [phone] / [phone] 04/28/2023, 9:52 AM documented in this encounter Plan of Treatment Upcoming Encounters Date Type Specialty Care Team Description 05/04/2023 Laboratory Laboratory Processing [facility], [facility] Mobile Home Draw [address] [place] [address] 05/05/2023 Anticoagulation Pharmacy [facility] [address] [place] [address] Scheduled Referrals Name Type Priority Associated Diagnoses Orde r Schedule ANTI-COAGULATION REFERRAL OP Referral Within 3 days (urgent) History of pulmonary embolism Ordered: 04/28/2023 Health Maintenance Due Date Last Done Comments DISCUSS TOBACCO CESSATION (REFER TO SMARTSET #5290) 1970 HIV Screening 1985 Pneumococcal Vaccine: Pediatrics (0 to 5 Years) and At-Risk Patients (6 to 64 Years) (2 - PCV) 05/22/2010 05/22/2009 Cologuard 2015 Fecal Occult Blood Test 2015 Sigmoidoscopy 2015 *ADVANCE DIRECTIVE NOT ON FILE 02/03/2020 LUNG CANCER SCREENING - USE SMARTSET [id number] 2020 02/10/2019, 07/19/2017, 05/09/2017, Additional history exists [...] this encounter Medical Devices Implanted Type Area Cloth Painter Device Identifier Shelf Expiration Date Model / Serial / Lot Tube Flex 3.0x2.5 [id number] - [id number] Implanted:Qty: 1 on 12/07/2014 by Juancarlos Trinidad MD at [facility] Left: Finger LANDON : ORTHOPAEDICS 11/18/2015 [id number] / / [id number] documented as of this encounter Visit Diagnoses [...] the patient have Health Care Power of Criminal Justice Teacher? No Healthcare Agents on File Name Relationship Healthcare Agent Relationship Communication Estrella Seth Other - (no specific identity) Health Care Power of Criminal Justice Teacher Care Teams Netbackup Engineer Relationship Specialty Start Date End Date Roberto Askew MD [address] [place] [address], [place] [address] PCP - General Internal Medicine 04/10/20 documented as of this encounter
--- OUTSIDE RECORDS SUMMARY | 2023-08-22 22:13 | External Medical Summary | Summary of Care ---
Author Name Unknown Organization [facility] Address [address] [place] [address] Phone [phone] Care Team Providers Care Shop Technician Name Role Phone Roberto Askew MD Primary Care Provider + Reason for Visit * Reason Comments Dosage Adjustment Via Phone (anticoag Cl inic) * Evaluate & Treat - Unlimited Visits (Within 3 days (urgent)) - Pending Review Specialty Diagnoses / Procedures Referred By Contac t Referred To Contact ANTI-COAG CLINIC / Pharmacy Diagnoses History of pulmonary embolism Roberto Askew MD [address] [place] [address] Referral ID Status Reason Start Date Expiration Date Visits Requested Visits Authorized [id number] Pending Review Specialty Services Required 04/28/2023 99 99 Encounter Details Date Type Department Care Team Description 04/28/2023 Anticoagulation Pharmacy Call Center WB [address] Public [place] [address] [facility] [address] [facility] [place] [address] History of pulmonary embolism* Allergies Active Allergy [...] day as needed. 0 Active nystatin (NYSTOP) 660149 UNIT/GM powderIndications:Cut aneous candidiasis Apply topically to [...] MG Oral TabletIndications:Cor onary artery disease involving nuiqsut coronary artery of nuiqsut heart without angina pectoris Take by mouth [...] Solution (Duoneb)Indications:C OPD, severity to be determined ([facility]),Wheezing Inhale 3 mL via nebulizer in the [...] [place]) Use as directed. 1 Kit 0 10/30/2022 Active Accu-Chek Guide In Vitro Strip (Glucose Blood)Indications:Typ e 2 diabetes mellitus with hemoglobin A1c goal of less than 8.0% ([facility]) Use to check sugars 3 times a day 100 Strip 1 10/30/2022 Active Accu-Chek Softclix LancetsIndications:Ty pe 2 diabetes mellitus with hemoglobin A1c goal of less than 8.0% ([facility]) Use to check sugars 3 times a [...] in the morning. Follow taper [facility] from [facility]. 0 12/25/2022 Active guaiFENesin-Codeine 100-10 MG/5ML Oral [...] MG Oral TabletIndications:Cor onary artery disease involving nuiqsut coronary artery of nuiqsut heart without angina pectoris Take 1 Tablet by mouth in the morning. In the morning.. 90 Tablet 1 04/05/2023 Active Metoprolol Succinate ER 50 MG Oral Tablet Extended Release 24 Hour (toPROL XL)Indications:Harman ry artery disease involving nuiqsut coronary artery of nuiqsut heart without angina pectoris TAKE 1 & [...] subarachnoid hemorrhage 10/04 Coronary artery disease involving nuiqsut heart without angina pectoris 10/04/2020 COPD, group [...] Calculus of kidney 08/20/2015 02/01/2018 Overview: right, [place] CT Vitamin D deficiency 01/31/2015 02/01/2018 Body [...] mRNA, LNP-s, No Pre serve, 2-Dose Series (CombiMatrix) 01/02/2021,12/05/2020 DTP Vaccine 07/19/2017,04/03/2014 Hepatitis B, 20+ [...] this encounter Progress Notes * Mala Walsh, lvn - 04/28/2023 2:08 PM EDT Contacts Type Contact Phone/Fax 04/28/2023 02:02 PM EDT Phone (Outgoing) Stanton Milner (Self) [phone] (H) Spoke to Patient Subjective Patient Findings [...] Weekly dose: decreased Additional Dosing Information: Description [facility]) - pt prefers [facility] at this time Tech to contact patient with dose instructions as noted. Becky Goodwin RPh 04/28/2023, 9:51 AM documented in this encounter Plan of Treatment Upcoming Encounters Date Type Specialty Care Team Description 05/04/2023 Laboratory Laboratory Processing [facility], [facility] Mobile Home Draw [address] [place] [address] 05/05/2023 [facility] [address] [place] [address] Scheduled Referrals Name Type Priority Associated Diagnoses Orde r Schedule ANTI-COAGULATION REFERRAL OP Referral Within 3 days (urgent) History of pulmonary embolism Ordered: 04/28/2023 Health Maintenance Due Date Last Done Comments DISCUSS TOBACCO CESSATION (REFER TO SMARTSET #[id number]) 1970 HIV Screening 1985 Pneumococcal Vaccine: Pediatrics (0 to 5 Years) and At-Risk Patients (6 to 64 Years) (2 - PCV) 05/22/2010 05/22/2009 Cologuard 2015 Fecal Occult Blood Test 2015 Sigmoidoscopy 2015 *ADVANCE DIRECTIVE NOT ON FILE 02/03/2020 LUNG CANCER SCREENING - USE SMARTSET [id number] 2020 02/10/2019, 07/19/2017, 05/09/2017, Additional history exists [...] this encounter Medical Devices Implanted Type Area Clinical Business Analyst Device Identifier Shelf Expiration Date Model / Serial / Lot Tube Flex 3.0x2.5 [id number] - [id number] Implanted:Qty: 1 on 12/07/2014 by Juancarlos Trinidad MD at [facility] Left: Finger LANDON : ORTHOPAEDICS 11/18/2015 [id number] / / [id number] documented as of this encounter Visit Diagnoses [...] the patient have Health Care Power of Maintenance Analyst? No Healthcare Agents on File Name Relationship Healthcare Agent Relationship Communication Estrella Seth Other - (no specific identity) Health Care Power of Maintenance Analyst Care Teams Shop Technician Relationship Specialty Start Date End Date Roberto Askew MD [address] [place] [address], [place] [address] PCP - General Internal Medicine 04/10/20 documented as of this encounter
--- OUTSIDE RECORDS SUMMARY | 2023-08-22 22:13 | External Medical Summary | Summary of Care ---
Author Name Unknown Organization [facility] Address [address] [place] [address] Phone [phone] Care Team Providers Care Heavy Truck Technician Name Role Phone Roberto Askew MD Primary Care Provider + Reason for Visit * Reason Onset Date Comments Medication Refill 04/22/2023 Encounter Details Date Type Department Care Team Description 04/22/2023 Refill General Internal Medicine [facility] [address] [facility] [place] [address] Roberto Askew MD [address] [place] [address] History of pulmonary embolism Allergies Active Allergy [...] day as needed. 0 Active nystatin (NYSTOP) 568688 UNIT/GM powderIndications:Cut aneous candidiasis Apply topically to [...] MG Oral TabletIndications:Cor onary artery disease involving washoe coronary artery of [...] EMERGENCY) Use as directed. 1 Kit 0 10/30/2022 [...] the morning. Follow taper instructions from [facility]. 0 12/25/2022 Active guaiFENesin-Codeine 100-10 MG/5ML [...] MG Oral TabletIndications:Cor onary artery disease involving washoe coronary artery of washoe heart without angina pectoris Take 1 Tablet by mouth in the morning. In the morning.. 90 Tablet 1 04/05/2023 Active Metoprolol Succinate ER 50 MG Oral Tablet Extended Release 24 Hour (toPROL XL)Indications:Harman ry artery disease involving washoe coronary artery of [...] 01/24/2021 Opioid dependence, uncomplicated 021 History of [place] (myocardial infarction) Morbid obesity with BMI of [...] Calculus of kidney 08/20/2015 02/01/2018 Overview: right, [place] CT Vitamin D deficiency 01/31/2015 02/01/2018 Body [...] mRNA, LNP-s, No Pre serve, 2-Dose Series (Drifty) 01/02/2021,12/05/2020 DTP Vaccine 07/19/2017,04/03/2014 Hepatitis B, 20+ [...] Telephone Encounter - Yanique Marrufo LPN - 04/23/2023 3:31 PM EDT Rx sent 04/23/23. * Telephone Encounter - Milka Alegria - 04/22/2023 12:09 PM EDT Did you pend patient's preferred pharmacy and medication before forwarding?yes Pharmacy: [facility] [address] [place] [address] [place] Pending Prescriptions: Disp Refills Warfarin Sodium 5 MG Oral Tablet (Coumadi*90 Tab*3 Sig: TAKE 1/2 TO 1 TABLET EVERY DAY DIRECTED BY [facility]IN [facility]IC. Last Visit: 08/10/2022 (in office), 12/10/2021 (telemedicine) Next Visit: Visit date not found If no future appointments scheduled, and last appointment is greater than a year ago, please schedule patient for a follow-up appointment Last date the medication was ordered: 04/05/23 Is this request for a controlled substance?No [...] Care Team Description 04/27/2023 Laboratory Laboratory Processing [facility], [facility] Mobile Home Draw [address] [place] [address] 04/28/2023 [facility] [address] [place] [address] Health Maintenance Due Date Last Done Comments DISCUSS TOBACCO CESSATION (REFER TO SMARTSET #2612) 1970 HIV Screening 1985 Pneumococcal Vaccine: Pediatrics (0 to 5 Years) and At-Risk Patients (6 to 64 Years) (2 - PCV) 05/22/2010 05/22/2009 Cologuard 2015 Fecal Occult Blood Test 2015 Sigmoidoscopy 2015 *ADVANCE DIRECTIVE NOT ON FILE 02/03/2020 LUNG CANCER SCREENING - USE SMARTSET [id number] 2020 02/10/2019, 07/19/2017, 05/09/2017, Additional history exists [...] this encounter Medical Devices Implanted Type Area Endoscopy Registered Nurse Device Identifier Shelf Expiration Date Model / Serial / Lot Tube Flex 3.0x2.5 [id number] - [id number] Implanted:Qty: 1 on 12/07/2014 by Juancarlos Trinidad MD at [facility] Left: Finger LANDON : ORTHOPAEDICS 11/18/2015 [id number] / / [id number] documented as of this encounter Visit Diagnoses [...] the patient have Health Care Power of Grinder Mill Operator? No Healthcare Agents on File Name Relationship Healthcare Agent Relationship Communication Estrella Seth Other - (no specific identity) Health Care Power of Grinder Mill Operator Care Teams Heavy Truck Technician Relationship Specialty Start Date End Date Roberto Askew MD [address] [place] [id number] PCP - General Internal Medicine 04/10/20 documented as of this encounter
--- OUTSIDE RECORDS SUMMARY | 2023-08-22 22:14 | External Medical Summary | Summary of Care ---
Author Name Unknown Organization [facility] Address [address] [place] [address] Phone [phone] Care Team Providers Care Photograph Tinter Name Role Phone Roberto Askew MD Primary Care Provider + Reason for Visit * Reason Comments Dosage Adjustment Via Phone (anticoag Cl inic) Encounter Details Date Type Department Care Team Description 04/16/2023 Anticoagulation Pharmacy Call Center 58[address] Public [place] [address] [facility] [address] History of pulmonary embolism* Allergies Active Allergy [...] as of this encounter (statuses as of 04/16/2023) Medications Medication Sig Dispensed Refills Start Date [...] day as needed. 0 Active nystatin (NYSTOP) 425527 UNIT/GM powderIndications:Cut aneous candidiasis Apply topically to [...] C, by GOLD 2017 classification ([facility]),COPD, group D, by GOLD 2017 classification ([facility]) USE 2 PUFFS BY MOUTH EVERY 4 HOURS NEEDED SHORT OF BREATH 6.7 g 5 11/24/2021 Active Magnesium Oxide 400 (241.3 Mg) MG Oral TabletIndications:Cor onary artery disease involving inupiat coronary artery of inupiat heart without angina pectoris Take by mouth [...] or chew 40 Tablet 2 04/03/2022 Active Folic Acid 1 MG Oral Tablet Take by mouth 1 Tablet in the morning. 90 Tablet 2 06/15/2022 Active Ondansetron HCl 4 MG Oral Tablet (Zofran)Indications:N ausea TAKE 1 TABLET BY MOUTH EVERY 8 HOURS NEEDED NAUSEA 20 Tablet 1 06/15/2022 Active Ipratropium-Albuterol 0.5-2.5 (3) MG/3ML Inhalation Solution (Duoneb)Indications:C OPD, severity to be determined ([facility]),Wheezing Inhale 3 mL via nebulizer in the morning and 3 mL at noon and 3 mL before bedtime. 360 mL 0 08/10/2022 Active Fluticasone-Salmetero l 250-50 MCG/ACT Inhalation Aerosol Powder Breath Activated (Advair Diskus)Indications:CO PD, severity to be determined ([facility]),Wheezing,Obesit y hypoventilation syndrome (HCC) Inhale 1 Puff [...] goal of less than 8.0% ([facility]) Use as directed. 1 Kit 0 10/30/2022 Active Accu-Chek Guide In Vitro Strip (Glucose Blood)Indications:Typ e 2 diabetes mellitus with hemoglobin A1c goal of less than 8.0% ([facility]) Use to check sugars 3 times a day 100 Strip 1 10/30/2022 Active Accu-Chek Softclix LancetsIndications:Ty pe 2 diabetes mellitus with hemoglobin A1c goal of less than 8.0% ([facility]) Use to check sugars 3 [...] Wednesday only. 28 Tablet 3 12/04/2022 Active Omeprazole 20 MG Oral Capsule Delayed Release (PriLOSEC) TAKE ONE CAPSULE BY MOUTH 1 HOUR BEFORE THE 1ST MEAL OF THE DAY 90 Capsule 1 12/04/2022 Active Gabapentin 800 MG Oral Tablet [...] AT BEDTIME 60 Tablet 3 12/09/2022 Active Famotidine 20 MG Oral Tablet (Pepcid)Indications:G astroesophageal reflux disease without esophagitis TAKE 1 TABLET BY MOUTH EVERY MORNING 90 Tablet 1 12/16/2022 Active Finasteride 5 MG Oral Tablet (Proscar)Indications: BPH with obstruction/lower urinary tract symptoms TAKE ONE TABLET BY MOUTH EVERY DAY INTHE MORNING 90 Tablet 1 12/16/2022 Active Ondansetron HCl 4 MG Oral Tablet (Zofran) TAKE 1 TABLET EVERY 8 HOURS NEEDED FOR NAUSEA 20 Tablet 1 12/24/2022 Active predniSONE 10 MG Oral Tablet (Deltasone) Take 1 Tablet by mouth in the morning. Follow taper instructions from [facility]. 0 12/25/2022 Active guaiFENesin-Codeine 100-10 MG/5ML Oral [...] MG Oral TabletIndications:Cor onary artery disease involving inupiat coronary artery of inupiat heart without angina pectoris Take 1 Tablet by mouth in the morning. In the morning.. 90 Tablet 1 04/05/2023 Active Metoprolol Succinate ER 50 MG Oral Tablet Extended Release 24 Hour (toPROL XL)Indications:Harman ry artery disease involving inupiat coronary artery of inupiat heart without angina pectoris TAKE 1 & 1/2 TABLETS by mouth 2 TIMES A DAY 270 Tablet 1 04/05/2023 Active Tamsulosin HCl 0.4 MG Oral Capsule (Flomax) Take 2 Capsules by mouth in the morning. 60 Capsule 1 04/07/2023 Active Atorvastatin Calcium 80 MG Oral Tablet (Lipitor) Take 1 Tablet by mouth in the morning. To take in the afternoon.. 30 Tablet 1 04/07/2023 Active Warfarin Sodium 5 MG Oral Tablet (Coumadin)Indications :History of pulmonary embolism TAKE 1/2 TO 1 TABLET EVERY DAY DIRECTED BY [facility]. 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 10/04/2020 COPD, group [...] as of this encounter (statuses as of 04/16/2023) Resolved Problems Problem Noted Date Resolved Date [...] Calculus of kidney 08/20/2015 02/01/2018 Overview: right, [place] CT Vitamin D deficiency 01/31/2015 02/01/2018 Body [...] as of this encounter (statuses as of 04/16/2023) Immunizations Name Administration Dates Next Due COVID-19 mRNA, LNP-s, No Pre serve, 2-Dose Series (food.de) 01/02/2021,12/05/2020 DTP Vaccine 07/19/2017,04/03/2014 Hepatitis B, 20+ [...] as of this encounter Progress Notes * Alexandra Carrillo, [facility] - 04/16/2023 1:11 PM EDT Medication Therapy Disease Management - Anticoagulation Patient: Stanton Milner : 1970 Contacts Type Contact Phone/Fax 04/16/2023 01:39 PM EDT Phone (Outgoing) Stanton Milner (Self) [phone] (H) Left Message Current Warfarin Dose As of 04/16/2023 Warfarin maintenance plan: 2.5 mg (5 mg x 0.5) every Wed, Wed, Sat; 5 mg (5 mg x 1) all other days Patient-Reported Symptoms: Patient Findings Positives: Change in medications (Prednisone taper), Hospital admission (Admitted to [facility] 04/08 - 04/16 for acute COPD exacerbation & acute metabolic encephalopathy) Comments: Discharge paperwork advised pt to take 2.5mg of warfarin daily - however, per warfarin dosing over the last week, advised pt to resume [employer] dosing with INR check on 04/20 as noted below. INR Result As of 04/16/2023 INR goal: 2.0-3.0 INR used for dosin.1 (04/16/2023) Warfarin Plan As of 04/16/2023 Full warfarin instructions: 2.5 mg every Tue, Micki, Sat; 5 mg all other days Next INR check: 04/20/2023 Additional Dosing Information: Description GML([facility]) - pt prefers Tues GML at this time Repeat PT/INR in 4 day(s) Weekly dose: not changed Alexandra Carrillo [facility] Clinical Pharmacist 04/16/2023, 1:11 PM documented in this encounter Plan of Treatment Upcoming Encounters Date Type Specialty Care Team Description 04/20/2023 Laboratory Laboratory Processing [facility] Mobile Home Draw [address] [place] [address] 04/20/2023 [facility] [address] [place] [address] Health Maintenance Due Date Last Done Comments DISCUSS TOBACCO CESSATION (REFER TO SMARTSET #3291) 1970 HIV Screening 1985 Pneumococcal Vaccine: Pediatrics (0 to 5 Years) and At-Risk Patients (6 to 64 Years) (2 - PCV) 05/22/2010 05/22/2009 Cologuard 2015 Fecal Occult Blood Test 2015 Sigmoidoscopy 2015 *ADVANCE DIRECTIVE NOT ON FILE 02/03/2020 LUNG CANCER SCREENING - USE SMARTSET [id number] 2020 02/10/2019, 07/19/2017, 05/09/2017, Additional history exists [...] this encounter Medical Devices Implanted Type Area Roofing Layer Device Identifier Shelf Expiration Date Model / Serial / Lot Tube Flex 3.0x2.5 [id number] - [id number] Implanted:Qty: 1 on 12/07/2014 by Juancarlos Trinidad MD at [facility] Left: Finger LANDON : ORTHOPAEDICS 11/18/2015 [id number] / / [id number] documented as of this encounter Procedures Procedure Name Priority Date/Time Associated Diagnosis Comments OUTSIDE LAB-PT/INR Routine 04/16/2023 documented in this encounter Results * OUTSIDE LAB-PT/INR (04/16/2023) INR-OUTSIDE LAB 2.1 04/16/2023 History Per Patient LABORATORY documented in this [...] the patient have Health Care Power of Subpoena Server? No Healthcare Agents on File Name Relationship Healthcare Agent Relationship Communication Estrella Seth Other - (no specific identity) Health Care Power of Subpoena Server Care Teams Photograph Tinter Relationship Specialty Start Date End Date Roberto Askew MD [address] [place] [address] PCP - General Internal Medicine 04/10/20 documented as of this encounter
--- OUTSIDE RECORDS SUMMARY | 2023-08-22 22:14 | External Medical Summary | Summary of Care ---
Author Name Unknown Organization [facility] Address [address] [place] [address] Phone [phone] Care Team Providers Care Filter Press Pumper Name Role Phone Roberto Askew MD Primary Care Provider + Reason for Visit * Reason Comments Dosage Adjustment Via Phone (anticoag Cl inic) Encounter Details Date Type Department Care Team Description 04/14/2023 Anticoagulation Pharmacy Call Center [phone] [place] [address] [facility] [address] [facility] [address] History of pulmonary embolism* Allergies Active Allergy [...] as of this encounter (statuses as of 04/14/2023) Medications Medication Sig Dispensed Refills Start Date [...] day as needed. 0 Active nystatin (NYSTOP) 127731 UNIT/GM powderIndications:Cut aneous candidiasis Apply topically to [...] C, by GOLD 2017 classification ([facility]),COPD, group D, by GOLD 2017 classification ([facility]) USE 2 PUFFS BY MOUTH EVERY 4 HOURS NEEDED SHORT OF BREATH 6.7 g 5 11/24/2021 Active Magnesium Oxide 400 (241.3 Mg) MG Oral TabletIndications:Cor onary artery disease involving [place] ore[place] coronary artery of [place] heart without angina pectoris Take by mouth [...] OPD, severity to be determined ([facility]),Wheezing Inhale 3 mL via nebulizer in the morning and 3 mL at noon and 3 mL before bedtime. 360 mL 0 08/10/2022 Active Fluticasone-Salmetero l 250-50 MCG/ACT Inhalation Aerosol Powder Breath Activated (Advair Diskus)Indications:CO PD, severity to be determined ([facility]),Wheezing,Obesit y hypoventilation syndrome (HCC) Inhale 1 Puff [...] goal of less than 8.0% ([facility]) Use as directed. 1 Kit 0 10/30/2022 Active Accu-Chek Guide In Vitro Strip (Glucose Blood)Indications:Typ e 2 diabetes mellitus with hemoglobin A1c goal of less than 8.0% ([facility]) Use to check sugars 3 times a day 100 Strip 1 10/30/2022 Active Accu-Chek Softclix LancetsIndications:Ty pe 2 diabetes mellitus with hemoglobin A1c goal of less than 8.0% ([facility]) Use to check sugars 3 times [...] in the morning. Follow taper [facility]. 0 12/25/2022 Active guaiFENesin-Codeine 100-10 [...] Oral TabletIndications:Cor onary artery disease involving [place] coronary artery of [place] heart without angina pectoris Take 1 Tablet by mouth in the morning. In the morning.. 90 Tablet 1 04/05/2023 Active Metoprolol Succinate ER 50 MG Oral Tablet Extended Release 24 Hour (toPROL XL)Indications:Harman ry artery disease involving [place] ore[place] coronary artery of [place] heart without angina pectoris TAKE 1 & [...] as of this encounter (statuses as of 04/14/2023) Active Problems Problem Noted Date Bandemia 10/24/2021 [...] 01/24/2021 Opioid dependence, uncomplicated 021 History of [place] (myocardial infarction) Morbid obesity with BMI of 50.0-59.9, ad ult 10/04/2020 History of subdural hematoma 10/04/2020 Gastroesophageal reflux disease without esophagitis 10/04/2020 History of subarachnoid hemorrhage 10/04 Coronary artery disease involving [place] heart without angina pectoris 10/04/2020 COPD, group [...] as of this encounter (statuses as of 04/14/2023) Resolved Problems Problem Noted Date Resolved Date [...] Calculus of kidney 08/20/2015 02/01/2018 Overview: right, [place] CT Vitamin D deficiency 01/31/2015 02/01/2018 Body [...] as of this encounter (statuses as of 04/14/2023) Immunizations Name Administration Dates Next Due COVID-19 mRNA, LNP-s, No Pre serve, 2-Dose Series (NoteWagon) 01/02/2021,12/05/2020 DTP Vaccine 07/19/2017,04/03/2014 Hepatitis B, 20+ [...] of this encounter Progress Notes * Alexandra Carrillo RPh - 04/14/2023 9:22 AM EDT Noted - pt has been admitted at [facility] since 04/08/23. ACC tracker updated. ACC to follow-up for discharge. Thanks, Alexandra Carrillo PharmD Clinical Pharmacist [facility] Pharm[facility] Services ([facility]PS) (Formerly Telepharmacy) [phone] 04/14/2023 9:26 AM * ARTEM Ruiz - 04/14/2023 7:44 AM EDT Pt is currently admitted to [facility]. Please advise. Thank you, Stephani Soto Stationary Engineer [facility] Pharm[facility] Services ([facility]PS) (formerly Telepharmacy) [phone] 04/14/2023,7:45 AM documented in this encounter Plan of Treatment Upcoming Encounters Date Type Specialty Care Team Description 04/16/2023 Anticoagulation Pharmacy Telepharmacy, [facility] [address] [facility] [place] [facility] Maintenance Due Date Last Done Comments DISCUSS TOBACCO CESSATION (REFER TO SMARTSET #4612) 1970 HIV Screening 1985 Pneumococcal Vaccine: Pediatrics (0 to 5 Years) and At-Risk Patients (6 to 64 Years) (2 - PCV) 05/22/2010 05/22/2009 Cologuard 2015 Fecal Occult Blood Test 2015 Sigmoidoscopy 2015 *ADVANCE DIRECTIVE NOT ON FILE 02/03/2020 LUNG CANCER SCREENING - USE SMARTSET 80074 2020 02/10/2019, 07/19/2017, 05/09/2017, Additional history exists [...] this encounter Medical Devices Implanted Type Area Tariff Counsel Device Identifier Shelf Expiration Date Model / Serial / Lot Tube Flex 3.0x2.5 [id number] - [id number] Implanted:Qty: 1 on 12/07/2014 by Juancarlos Trinidad MD at [facility] Left: Finger LANDON : ORTHOPAEDICS 11/18/2015 [id number] / / [id number] documented as of this encounter Procedures Procedure Name Priority Date/Time Associated Diagnosis Comments OUTSIDE LAB-PT/INR Routine 04/14/2023 documented in this encounter Results * OUTSIDE LAB-PT/INR (04/14/2023) INR-OUTSIDE LAB 1.5 04/14/2023 History Per Patient LABORATORY documented in this [...] the patient have Health Care Power of Stereotyper? No Healthcare Agents on File Name Relationship Healthcare Agent Relationship Communication Estrella Seth Other - (no specific identity) Health Care Power of Stereotyper Care Teams Filter Press Pumper Relationship Specialty Start Date End Date Roberto Askew MD [address] [facility] [place] [facility] [place] [address] PCP - General Internal Medicine 04/10/20 documented as of this encounter
--- OUTSIDE RECORDS SUMMARY | 2023-08-22 22:14 | External Medical Summary | Summary of Care ---
Author Name Unknown Organization [facility] Address [address] [place] [address] Phone [phone] Care Team Providers Care Cylinder Tester Name Role Phone Roberto Griffin MD Primary Care Provider + Reason for Visit * Reason Onset Date Comments Medication Refill 04/05/2023 Appointment 04/05/2023 Encounter Details Date Type Department Care Team Description 04/05/2023 Refill General Internal Medicine [facility] [address] [facility] [place] [address] Roberto Griffin MD [address] [place] [address] History of pulmonary embolism Allergies Active Allergy [...] as of this encounter (statuses as of 04/09/2023) Medications Medication Sig Dispensed Refills Start Date [...] day as needed. 0 Active nystatin (NYSTOP) 100279 UNIT/GM powderIndications:Cu taneous candidiasis Apply topically to [...] COPD, group C, by GOLD 2017 classification ([facility]),COPD, group D, by GOLD 2017 classification ([facility]) USE 2 PUFFS BY MOUTH EVERY 4 HOURS NEEDED SHORT OF BREATH 6.7 g 5 2 Active Magnesium Oxide 400 (241.3 Mg) MG Oral TabletIndications:Co ronary artery disease involving shinnecock coronary artery of shinnecock heart without angina pectoris Take by mouth [...] or chew 40 Tablet 2 2 Active Folic Acid 1 MG Oral Tablet Take by mouth 1 Tablet in the morning. 90 Tablet 2 2 Active Ondansetron HCl 4 MG Oral Tablet (Zofran)Indications: Nausea TAKE 1 TABLET BY MOUTH EVERY 8 HOURS NEEDED NAUSEA 20 Tablet 1 2 Active Ipratropium-Albutero l 0.5-2.5 (3) MG/3ML Inhalation Solution (Duoneb)Indications: COPD, severity to be determined ([facility]),Wheezing Inhale 3 mL via nebulizer in [...] Wednesday only. 28 Tablet 3 3 Active Omeprazole 20 MG Oral Capsule Delayed Release (PriLOSEC) TAKE ONE CAPSULE BY MOUTH 1 HOUR BEFORE THE 1ST MEAL OF THE DAY 90 Capsule 1 3 Active Gabapentin 800 [...] AT BEDTIME 60 Tablet 3 3 Active Famotidine 20 MG Oral Tablet (Pepcid)Indications: Gastroesophageal reflux disease without esophagitis TAKE 1 TABLET BY MOUTH EVERY MORNING 90 Tablet 1 3 Active Finasteride 5 MG Oral Tablet (Proscar)Indications :BPH with obstruction/lower urinary tract symptoms TAKE ONE TABLET BY MOUTH EVERY DAY INTHE MORNING 90 Tablet 1 3 Active Ondansetron HCl 4 [...] FOR COUGH. 20 Capsule 0 3 Active Tamsulosin HCl 0.4 MG Oral Capsule (Flomax) Take 2 Capsules by mouth in the morning. 60 Capsule 1 3 Active Atorvastatin Calcium 80 MG Oral Tablet (Lipitor) Take 1 Tablet by mouth in the morning. To take in the afternoon.. 30 Tablet 1 3 Active Warfarin Sodium 5 MG Oral Tablet (Coumadin)Indication s:History of pulmonary embolism TAKE 1/2 TO 1 TABLET EVERY DAY DIRECTED BY COUMADIN CLINIC. 90 Tablet 3 3 Active Tamsulosin HCl 0.4 MG Oral Capsule (Flomax) TAKE ONE CAPSULE BY MOUTH DAILY. 30 Cap 11 1 04/05/20 23 Discontinu ed(Refill) Warfarin Sodium 5 MG Oral Tablet (Coumadin)Indication s:History of pulmonary embolism TAKE 1/2 TO 1 TABLET EVERY DAY DIRECTED BY COUMADIN CLINIC. 90 Tablet 3 2 04/05/20 23 Discontinu ed(Refill) Atorvastatin Calcium 80 MG Oral Tablet (Lipitor) Take by mouth 1 Tablet in the morning. To take in the afternoon.. 30 Tablet 1 2 04/05/20 23 Discontinu ed(Refill) Isosorbide Dinitrate 30 MG Oral TabletIndications:Co ronary artery disease involving shinnecock coronary artery of shinnecock heart without angina pectoris TAKE ONE TABLET BY MOUTH EVERY MORNING 90 Tablet 1 3 04/05/20 23 Discontinu ed(Refill) Metoprolol Succinate ER 50 MG Oral Tablet Extended Release 24 Hour (toPROL XL)Indications:Coron uziel artery disease involving shinnecock coronary artery of shinnecock heart without angina pectoris TAKE 1 & 1/2 TABLETS by mouth 2 TIMES A DAY 270 Tablet 2 3 04/05/20 23 Discontinu ed(Refill) documented as of this encounter (statuses as of 04/09/2023) Active Problems Problem Noted Date Bandemia 10/24/2021 [...] 01/24/2021 Opioid dependence, uncomplicated 021 History of CA (myocardial infarction) 05 /01/2021 Morbid obesity with BMI of 50.0-59.9, ad ult 10/04/2020 History of subdural hematoma 10/04/2020 Gastroesophageal reflux disease without esophagitis 10/04/2020 History of subarachnoid hemorrhage 10/04 Coronary artery disease involving shinnecock heart without angina pectoris 10/04/2020 COPD, group [...] as of this encounter (statuses as of 04/09/2023) Resolved Problems Problem Noted Date Resolved Date [...] Calculus of kidney 08/20/2015 02/01/2018 Overview: right, [place] CT Vitamin D deficiency 01/31/2015 02/01/2018 Body [...] as of this encounter (statuses as of 04/09/2023) Immunizations Name Administration Dates Next Due COVID-19 mRNA, LNP-s, No Pre serve, 2-Dose Series ([employer]) 01/02/2021,12/05/2020 DTP Vaccine 07/19/2017,04/03/2014 Hepatitis B, [...] * Telephone Encounter - DARIA Vega - 04/09/2023 8:53 AM EDT LMOM 04/09 * Telephone Encounter - DARIA Vega - 04/07/2023 3:17 PM EDT LMOM re: med check/appt 04/07 * Telephone Encounter - Jono Pollock MD - 04/07/2023 8:48 AM EDTSigned Prescriptions: Disp Refills Tamsulosin HCl 0.4 MG Oral Capsule (Flomax)60 Cap*1 Sig: Take 2 Capsules by mouth in the morning. Authorizing Provider: JONO POLLOCK Atorvastatin Calcium 80 MG Oral Tablet (Li*30 Tab*1 Sig: Take 1 Tablet by mouth in the morning. To take in the afternoon.. Authorizing Provider: JONO POLLOCK Warfarin Sodium 5 MG Oral Tablet (Coumadin)90 Tab*3 Sig: TAKE 1/2 TO 1 TABLET EVERY DAY DIRECTED BY COUMADIN CLINIC. Authorizing Provider: ROBERTO GRIFFIN Ordering User: GARY HASKINS * Telephone Encounter - Jono Pollock MD - 04/07/2023 8:47 AM EDT Sort supply done Needs appoint for PCP for f/u * Telephone Encounter - Jono Pollock MD - 04/06/2023 12:49 PM EDTPending Prescriptions: Disp Refills Tamsulosin HCl 0.4 MG Oral Capsule (Flomax) Sig: Take 2 Capsules by mouth in the morning. Atorvastatin Calcium 80 MG Oral Tablet (Li*30 Tab*1 Sig: Take 1 Tablet by mouth in the morning. To take in the afternoon.. Signed Prescriptions: Disp Refills Warfarin Sodium 5 MG Oral Tablet (Coumadin)90 T ab*3 Sig: TAKE 1/2 TO 1 TABLET EVERY DAY DIRECTED BY [facility]ADIN CLINIC. Authorizing Provider: ROBERTO GRIFFIN Ordering User: GARY HASKINS * Telephone Encounter - Gary Haskins [facility] - 04/06/2023 9:03 AM EDT Per adherence tracker Tamsulosin filled 08/14/22 for 180 pills for 90 days. PC to [id number] [address] [facility] to determine who wrote script. Unable to connect with anyone in a reasonable time. [employer] out of business. Tried to call patient about Tamsulosin; LMOVM. If patient calls back please transfer to [facility]. Please inquire how he has been taking Tamsulosin and who the script was written by. Thank you, Gary Haskins, PharmD, KATHLEEN Clinical Pharmacist Centralized Clinical Pharmacy Services (CCPS) (formerly Telepharmacy) 04/06/23 9:07 AM [phone] * Telephone Encounter - Jono Pollock MD - 04/05/2023 6:02 PM EDTPending Prescriptions: Disp Refills Tamsulosin HCl 0.4 MG Oral Capsule (Flomax) Sig: Take 2 Capsules by mouth in the morning. Atorvastatin Calcium 80 MG Oral Tablet (Li*30 Tab*1 Sig: Take 1 Tablet by mouth in the morning. To take in the afternoon.. Signed Prescriptions: Disp Refills Warfarin Sodium 5 MG Oral Tablet (Coumadin)90 T ab*3 Sig: TAKE 1/2 TO 1 TABLET EVERY DAY DIRECTED BY [facility]MADIN CLINIC. Authorizing Provider: ROBERTO GRIFFIN Ordering User: GARY HASKINS * Telephone Encounter - Jono Pollock MD - 04/05/2023 5:59 PM EDT Need to check how uch transulosin he is staking now and who increased it ? He is due for appoint so only 1 time refill will be sent until appoint . Forward once above checked and notified * Telephone Encounter - Gary Haskins [facility] - 04/05/2023 5:23 PM EDT Pending Prescriptions: Disp Refills Tamsulosin HCl 0.4 MG Oral Capsule (Flomax) Sig: Take 2 Capsules by mouth in the morning. Atorvastatin Calcium 80 MG Oral Tablet (Li*30 Tab*1 Sig: Take 1 Tablet by mouth in the morning. To take in the afternoon.. Signed Prescriptions: Disp Refills Warfarin Sodium 5 MG Oral Tablet (Coumadin)90 T ab*3 Sig: TAKE 1/2 TO 1 TABLET EVERY DAY DIRECTED BY [facility]MADIN CLINIC. Authorizing Provider: ROBERTO GRIFFIN User: GARY HASKINS * Telephone Encounter - Gary Haskins [facility] - 04/05/2023 5:22 PM EDT Unable to authorize medication refills for pended medication(s) at this time. Part of the protocol criteria used for refill authorization was not satisfied. Patient non adherent to medications. Tamsulosin dose requested different than last prescribed. Please review and approve if appropriate. Thank you, Gary Haskins PharmD, KATHLEEN Clinical Pharmacist Centralized Clinical Pharmacy Services (CCPS) (formerly Telepharmacy) 04/05/23 5:22 PM [phone] * Telephone Encounter - Shanti Ann CPhT - 04/05/2023 5:05 PM EDT Did you pend patient's preferred pharmacy and medication before forwarding?yes Pharmacy: [id number] [address] [facility] Pending Prescriptions: Disp Refills Tamsulosin HCl 0.4 MG Oral Capsule (Floma* Sig: Take 2 Capsules by mouth in the morning. Atorvastatin Calcium 80 MG Oral Tablet (L*30 Tab*1 Sig: Take 1 Tablet by mouth in the morning. To take in the afternoon.. Warfarin Sodium 5 MG Oral Tablet (Coumadi*90 Tab*3 Sig: TAKE 1/2 TO 1 TABLET EVERY DAY DIRECTED BY COUMADIN CLINIC. Last Visit: 08/10/2022 (in office), 12/10/2021 (telemedicine) Next Visit: Visit date not found If no future appointments scheduled, and last appointment is greater than a year ago, please schedule patient for a follow-up appointment Last date the medication was ordered: 03/27/2021 Is this request for a controlled substance?No [...] Encounters Date Type Specialty Care Team Description 04/13/2023 Laboratory Laboratory Processing G[facility], [facility] Draw [address] [place] [address] 04/14/20[facility] [address] [place] [address] Health Maintenance Due Date Last Done Comments DISCUSS TOBACCO CESSATION (REFER TO SMARTSET #5700) 1970 HIV Screening 1985 Pneumococcal Vaccine: Pediatrics (0 to 5 Years) and At-Risk Patients (6 to 64 Years) (2 - PCV) 05/22/2010 05/22/2009 Cologuard 2015 Fecal Occult Blood Test 2015 Sigmoidoscopy 2015 *ADVANCE DIRECTIVE NOT ON FILE 02/03/2020 LUNG CANCER SCREENING - USE SMARTSET 52119 2020 02/10/2019, 07/19/2017, 05/09/2017, Additional history exists [...] this encounter Medical Devices Implanted Type Area Food Adviser Device Identifier Shelf Expiration Date Model / Serial / Lot Tube Flex 3.0x2.5 [id number] - [id number] Implanted:Qty: 1 on 12/07/2014 [place] [facility] [place] Finger [employer]ANDON : ORTHOPAEDICS 11/18/2015 [id number] / / [id number] documented as of this encounter Visit Diagnoses [...] the patient have Health Care Power of Genetic Engineer? No Healthcare Agents on File Name Relationship Healthcare Agent Relationship Communication Estrella Seth Other - (no specific identity) Health Care Power of Genetic Engineer Care Teams Cylinder Tester Relationship Specialty Start Date End Date Roberto Griffin MD [address] [place] [address] PCP - General Internal Medicine 04/10/20 documented as of this encounter
--- OUTSIDE RECORDS SUMMARY | 2023-08-22 22:14 | External Medical Summary ---
Author Name Unknown Address Unknown Organization [facility] [address] [place] [id number] Laboratory Report Ordering Provider Test Date Status ABATULIO 04/20/2023 08:41:00 Final Standing order for pt/inr. < br/>Please draw pt/inr every 1 to 4 weeks as requested
Results to [facility]

Warfarin Therapy
INR: 2.0-3.0 conventional anticoagulation
INR: 2.5-3.5 high intensity anticoagulation Observation Date Value Abnormality Reference (Units ) Status PT 04/20/2023 08:41:00 38.6 Above high normal 11 .6-15.2 (seconds) Final INR 04/20/2023 08:41:00 3.9 Above high normal 0. 8-1.2 Final Performing Location [facility] [address] [place] [id number]
--- OUTSIDE RECORDS SUMMARY | 2023-08-22 22:14 | External Medical Summary | Summary of Care ---
Author Name Unknown Organization [facility] Address [address] [place] [address] Phone [phone] Care Team Providers Care Assembler Seat Name Role Phone Roberto Askew MD Primary Care Provider + Reason for Visit * Reason Comments Dosage Adjustment Via Phone (anticoag Cl inic) Encounter Details Date Type Department Care Team Description 04/20/2023 Anticoagulation Pharmacy Call Center [phone] [place] [address] [facility] [address] [facility] [address] History of pulmonary embolism* Allergies Active Allergy [...] as of this encounter (statuses as of 04/20/2023) Medications Medication Sig Dispensed Refills Start Date [...] day as needed. 0 Active nystatin (NYSTOP) 120494 UNIT/GM powderIndications:Cut aneous candidiasis Apply topically to [...] OPD, group C, by GOLD 2017 classification ([facility]),COPD, group D, by GOLD 2017 classification ([facility]) USE 2 PUFFS BY MOUTH EVERY 4 HOURS NEEDED SHORT OF BREATH 6.7 g 5 11/24/2021 Active Magnesium Oxide 400 (241.3 Mg) MG Oral TabletIndications:Cor onary artery disease involving [place] coronary artery of kiowa tribe heart without angina pectoris Take by [...] Solution (Duoneb)Indications:C OPD, severity to be determined ([facility]),Wheezing Inhale 3 mL via nebulizer in the morning and 3 mL at noon and 3 mL before bedtime. 360 mL 0 08/10/2022 Active Fluticasone-Salmetero l 250-50 MCG/ACT Inhalation Aerosol Powder Breath Activated (Advair Diskus)Indications:CO PD, severity to be determined ([facility]),Wheezing,Obesit y hypoventilation syndrome (HCC) Inhale [...] hemoglobin A1c goal of less than 8.0% ([facility]) Use as directed. 1 Kit 0 10/30/2022 Active Accu-Chek Guide In Vitro Strip (Glucose Blood)Indications:Typ e 2 diabetes mellitus with hemoglobin A1c goal of less than 8.0% ([facility]) Use to check sugars 3 times a day 100 Strip 1 10/30/2022 Active Accu-Chek Softclix LancetsIndications:Ty pe 2 diabetes mellitus with hemoglobin A1c goal of less than 8.0% ([facility]) Use to check sugars 3 [...] in the morning. Follow taper instructions from [facility]. 0 12/25/2022 Active guaiFENesin-Codeine 100-10 MG/5ML [...] MG Oral TabletIndications:Cor onary artery disease involving [place] coronary artery of [place] heart without angina pectoris Take 1 Tablet by mouth in the morning. In the morning.. 90 Tablet 1 04/05/2023 Active Metoprolol Succinate ER 50 MG Oral Tablet Extended Release 24 Hour (toPROL XL)Indications:Harman ry artery disease involving [place] coronary artery of [place] heart without angina pectoris TAKE 1 [...] as of this encounter (statuses as of 04/20/2023) Active Problems Problem Noted Date Bandemia 10/24/2021 [...] subarachnoid hemorrhage 10/04 Coronary artery disease involving [place] heart without angina pectoris 10/04/2020 COPD, [...] as of this encounter (statuses as of 04/20/2023) Resolved Problems Problem Noted Date Resolved Date [...] Calculus of kidney 08/20/2015 02/01/2018 Overview: right, [place] CT Vitamin D deficiency 01/31/2015 02/01/2018 Body [...] as of this encounter (statuses as of 04/20/2023) Immunizations Name Administration Dates Next Due COVID-19 mRNA, LNP-s, No Pre serve, 2-Dose Series ([employer]) 01/02/2021,12/05/2020 DTP Vaccine 07/19/2017,04/03/2014 Hepatitis B, 20+ [...] of this encounter Progress Notes * ARTEM Varela - 04/20/2023 2:16 PM EDT Contacts Type Contact Phone/Fax 04/20/2023 02:13 PM EDT Phone (Outgoing) Stanton Milner (Self) [phone] (H) Left Message Subjective Advised patient to contact Anticoagulation Clinic if any unusual bruising or bleeding, recent illness, changes in medication, or questions/concerns. PT/INR results, Coumadin dose instructions, and next PT/INR date communicated as noted by Pharmacist: Yes ARTEM Varela 04/20/2023, 2:16 PM * Keren Sanchez [facility] - 04/20/2023 2:02 PM EDT Images from the original note were not included. Coumadin Clinic (region specific) Objective Current Warfarin Dose As of 04/20/2023 Warfarin maintenance plan: 2.5 mg (5 mg x 0.5) every Tue, Micki, Sat; 5 mg (5 mg x 1) all other days INR Result As of 04/20/2023 INR goal: 2.0-3.0 INR used for dosin.9 (04/20/2023) Assessment & Plan Warfarin Plan As of 04/20/2023 Full warfarin instructions: 04/20: Hold; 04/21: 2.5 mg; Otherwise 2.5 mg every Tue, Micki, Sat; 5 mg all other days Next INR check: 04/27/2023 Repeat PT/INR in 1 week(s) Weekly dose: not changed Additional Dosing Information: Description GML(MTuTh) - pt prefers Tues GML at this time Tech to contact patient with dose instructions as noted. Keren Sanchez RPh 04/20/2023, 2:02 PM documented in this encounter Plan of Treatment Upcoming Encounters Date Type Specialty Care Team Description 04/28/20[facility] [address] [place] [address] Health Maintenance Due Date Last Done Comments DISCUSS TOBACCO CESSATION (REFER TO SMARTSET #0385) 1970 HIV Screening 1985 Pneumococcal Vaccine: Pediatrics (0 to 5 Years) and At-Risk Patients (6 to 64 Years) (2 - PCV) 05/22/2010 05/22/2009 Cologuard 2015 Fecal Occult Blood Test 2015 Sigmoidoscopy 2015 *ADVANCE DIRECTIVE NOT ON FILE 02/03/2020 LUNG CANCER SCREENING - USE SMARTSET [id number] 2020 02/10/2019, 07/19/2017, 05/09/2017, Additional history exists [...] this encounter Medical Devices Implanted Type Area Landscape Horticulture Instructor Device Identifier Shelf Expiration Date Model / Serial / Lot Tube Flex 3.0x2.5 [id number] - [id number] Implanted:Qty: 1 on 12/07/2014 by Juancarlos Trinidad MD at [facility] Left: Finger LANDON : ORTHOPAEDICS 11/18/2015 [id number] / / [id number] documented as of this encounter Visit Diagnoses [...] the patient have Health Care Power of Ccie? No Healthcare Agents on File Name Relationship Healthcare Agent Relationship Communication Estrella Seth Other - (no specific identity) Health Care Power of Ccie Care Teams Assembler Seat Relationship Specialty Start Date End Date Roberto Askew MD [address] [place] [address] PCP - General Internal Medicine 04/10/20 documented as of this encounter
--- OUTSIDE RECORDS SUMMARY | 2023-08-22 22:14 | External Medical Summary | Summary of Care ---
Author Name Unknown Organization [facility] Address [address] [place] [address] Phone [phone] Care Team Providers Care Spd Manager Name Role Phone Roberto Askew MD Primary Care Provider + Reason for Visit * Reason Onset Date Comments Hospital Follow-Up 04/16/2023 Encounter Details Date Type Department Care Team Description 04/16/2023 Telephone General Internal Medicine [facility] [address] [facility] [place] [address] Roberto Askew MD [address] [place] [address] Hospital Follow-Up Allergies Active Allergy Reactions Severity [...] day as needed. 0 Active nystatin (NYSTOP) 590058 UNIT/GM powderIndications:Cut aneous candidiasis Apply topically to [...] Oral TabletIndications:Cor onary artery disease involving [place] coronary artery of [place] heart without angina pectoris Take by [...] (Duoneb)Indications:C OPD, severity to be determined ([facility]),Wheezing Inhale 3 mL via nebulizer in the [...] Oral TabletIndications:Cor onary artery disease involving [place] coronary artery of [place] heart without angina pectoris Take 1 Tablet by mouth in the morning. In the morning.. 90 Tablet 1 04/05/2023 Active Metoprolol Succinate ER 50 MG Oral Tablet Extended Release 24 Hour (toPROL XL)Indications:Harman ry artery disease involving [place] coronary artery of [place] heart without angina pectoris TAKE 1 [...] hemorrhage 10/04 Coronary artery disease involving [place] heart without angina pectoris 10/04/2020 COPD, [...] Calculus of kidney 08/20/2015 02/01/2018 Overview: right, [place] CT Vitamin D deficiency 01/31/2015 02/01/2018 Body [...] mRNA, LNP-s, No Pre serve, 2-Dose Series ([employer]) 01/02/2021,12/05/2020 DTP Vaccine 07/19/2017,04/03/2014 Hepatitis B, 20+ [...] 3:27 PM EDT Patient discharged home from [facility] after treatment for COPD exacerbation and Acute metabolic encephalopathy. It is recommended that patient undergo a sleep study with noted Hypercarbic respiratory failure: Suspected degree of obesity hypoventilation syndrome. Patient declined to have hospital followup scheduled, citing difficulty with transportation. [place] case mgmt provided info on public transportation and encouraged him to speak with his assistant case manager through his insurance. Thank you documented in this encounter Plan of Treatment Upcoming Encounters Date Type Specialty Care Team Description 04/20/2023 [facility] [address] [facility] [place] [address] History of pulmonary embolism* 04/28/2023 [facility] [address] [facility] [place] [address] Health Maintenance Due Date Last Done Comments DISCUSS TOBACCO CESSATION (REFER TO SMARTSET #3291) 1970 HIV Screening 1985 Pneumococcal Vaccine: Pediatrics (0 to 5 Years) and At-Risk Patients (6 to 64 Years) (2 - PCV) 05/22/2010 05/22/2009 Cologuard 2015 Fecal Occult Blood Test 2015 Sigmoidoscopy 2015 *ADVANCE DIRECTIVE NOT ON FILE 02/03/2020 LUNG CANCER SCREENING - USE SMARTSET 06309 2020 02/10/2019, 07/19/2017, 05/09/2017, Additional history exists [...] this encounter Medical Devices Implanted Type Area Controls Design Engineer Device Identifier Shelf Expiration Date Model / Serial / Lot Tube Flex 3.0x2.5 [id number] - [id number] Implanted:Qty: 1 on 12/07/2014 by Juancarlos Trinidad MD at [facility] Left: Finger LANDON : ORTHOPAEDICS 11/18/2015 [id number] / / [id number] documented as of this encounter Advance Directives [...] the patient have Health Care Power of Dye Lab Technician? No Healthcare Agents on File Name Relationship Healthcare Agent Relationship Communication Estrella Seth Other - (no specific identity) Health Care Power of Dye Lab Technician Care Teams Spd Manager Relationship Specialty Start Date End Date Roberto Askew MD [address] [place] [id number] PCP - General Internal Medicine 04/10/20 documented as of this encounter
--- OUTSIDE RECORDS SUMMARY | 2023-08-22 22:14 | External Medical Summary | Summary of Care ---
Author Name Unknown Organization [facility] Address [address] [place] [address] Phone [phone] Care Team Providers Care Engineer Steam Name Role Phone Roberto Griffin MD Primary Care Provider + Reason for Visit * Reason Onset Date Comments Medication Refill 04/05/2023 Appointment 04/05/2023 Encounter Details Date Type Department Care Team Description 04/05/2023 Refill General Internal Medicine [facility] [address] [facility] [place] [address] Roberto Griffin MD [address] [place] [address] History of pulmonary embolism Allergies Active Allergy [...] as of this encounter (statuses as of 04/07/2023) Medications Medication Sig Dispensed Refills Start Date [...] day as needed. 0 Active nystatin (NYSTOP) 264183 UNIT/GM powderIndications:Cu taneous candidiasis Apply topically to [...] MG Oral TabletIndications:Co ronary artery disease involving [place] coronary artery of [place] heart without angina pectoris Take by mouth [...] Solution (Duoneb)Indications: COPD, severity to be determined ([facility]),Wheezing Inhale 3 mL via nebulizer [...] in the morning. Follow taper instructions from [facility]. 0 3 Active guaiFENesin-Codeine 100-10 MG/5ML Oral [...] MG Oral TabletIndications:Co ronary artery disease involving [place] coronary artery of [place] heart without angina pectoris TAKE ONE TABLET BY MOUTH EVERY MORNING 90 Tablet 1 3 04/05/20 23 Discontinu ed(Refill) Metoprolol Succinate ER 50 MG Oral Tablet Extended Release 24 Hour (toPROL XL)Indications:Coron uziel artery disease involving [place] coronary artery of [place] heart without angina pectoris TAKE 1 & 1/2 TABLETS by mouth 2 TIMES A DAY 270 Tablet 2 3 04/05/20 23 Discontinu ed(Refill) documented as of this encounter (statuses as of 04/07/2023) Active Problems Problem Noted Date Bandemia 10/24/2021 [...] uncomplicated 021 History of [place] (myocardial infarction) 05 /01/2021 Morbid obesity with BMI of 50.0-59.9, ad ult 10/04/2020 History of subdural hematoma 10/04/2020 Gastroesophageal reflux disease without esophagitis 10/04/2020 History of subarachnoid hemorrhage 10/04 Coronary artery disease involving [place] heart without angina pectoris 10/04/2020 COPD, group [...] as of this encounter (statuses as of 04/07/2023) Resolved Problems Problem Noted Date Resolved Date [...] Calculus of kidney 08/20/2015 02/01/2018 Overview: right, [place] CT Vitamin D deficiency 01/31/2015 02/01/2018 Body [...] as of this encounter (statuses as of 04/07/2023) Immunizations Name Administration Dates Next Due COVID-19 mRNA, LNP-s, No Pre serve, 2-Dose Series ([employer]) 01/02/2021,12/05/2020 DTP Vaccine 07/19/2017,04/03/2014 Hepatitis B, 20+ [...] med check/appt 04/07 * Telephone Encounter - Madina Pollock MD - 04/07/2023 8:48 AM EDTSigned Prescriptions: Disp Refills Tamsulosin HCl 0.4 MG Oral Capsule (Flomax)60 Cap*1 Sig: Take 2 Capsules by mouth in the morning. Authorizing Provider: MADINA POLLOCK Atorvastatin Calcium 80 MG Oral Tablet (Li*30 Tab*1 Sig: Take 1 Tablet by mouth in the morning. To take in the afternoon.. Authorizing Provider: MADINA POLLOCK Warfarin Sodium 5 MG Oral Tablet (Coumadin)90 Tab*3 Sig: TAKE 1/2 TO 1 TABLET EVERY DAY DIRECTED BY COUMADIN CLINIC. Authorizing Provider: ROBERTO GRIFFIN Ordering User: GARY HASKINS * Telephone Encounter - Madina Pollock MD - 04/07/2023 8:47 AM EDT Sort supply done Needs appoint for PCP for f/u * Telephone Encounter - Madina Pollock MD - 04/06/2023 12:49 PM EDTPending [...] HASKINS * Telephone Encounter - Gary Haskins [facility] - 04/06/2023 9:03 AM EDT Per adherence tracker Tamsulosin filled 08/14/22 for 180 pills for 90 days. PC to E [id number] [address] [place] [address] to determine who wrote script. Unable to connect with anyone in a reasonable time. [employer] out of business. Tried to call patient about Tamsulosin; LMOVM. If patient calls back please transfer to [facility]. Please inquire how he has been taking Tamsulosin and who the script was written by. Thank you, Gary Haskins, PharmD, KATHLEEN Clinical Pharmacist Centralized Clinical Pharmacy Services (CCPS) (formerly Telepharmacy) 04/06/23 9:07 AM [phone] * Telephone Encounter - Madina Pollock MD - 04/05/2023 6:02 PM EDTPending [...] User: GARY HASKINS * Telephone Encounter - Madina Pollock MD - 04/05/2023 5:59 PM EDT Need to check how uch transulosin he is staking now and who increased it ? He is due for appoint so only 1 time refill will be sent until appoint . Forward once above checked and notified * Telephone Encounter - Gary Haskins [facility] - 04/05/2023 5:23 PM EDT Pending Prescriptions: [...] HASKINS * Telephone Encounter - Gary Haskins RP - 04/05/2023 5:22 PM EDT Unable to authorize medication refills for pended medication(s) at this time. Part of the protocol criteria used for refill authorization was not satisfied. Patient non adherent to medications. Tamsulosin dose requested different than last prescribed. Please review and approve if appropriate. Thank you, Gary Haskins, Drake, KATHLEEN Clinical Pharmacist Centralized Clinical Pharmacy Services (CCPS) (formerly Telepharmacy) 04/05/23 5:22 PM [phone] * Telephone Encounter - Shanti Ann CPhT - 04/05/2023 5:05 PM EDT Did you pend patient's preferred pharmacy and medication before forwarding?yes Pharmacy: [id number] [address] [facility] Pending Prescriptions: Disp Refills Tamsulosin HCl 0.4 [...] Care Team Description 04/13/2023 Laboratory Laboratory Processing [facility] Mobile Home Draw [address] [place] [address] Health Maintenance Due Date Last Done Comments DISCUSS TOBACCO CESSATION (REFER TO SMARTSET #3421) 1970 HIV Screening 1985 Pneumococcal Vaccine: Pediatrics (0 to 5 Years) and At-Risk Patients (6 to 64 Years) (2 - PCV) 05/22/2010 05/22/2009 Cologuard 2015 Fecal Occult Blood Test 2015 Sigmoidoscopy 2015 *ADVANCE DIRECTIVE NOT ON FILE 02/03/2020 LUNG CANCER SCREENING - USE SMARTSET 67476 2020 02/10/2019, 07/19/2017, 05/09/2017, Additional history exists [...] this encounter Medical Devices Implanted Type Area Forensic Manager Device Identifier Shelf Expiration Date Model / Serial / Lot Tube Flex 3.0x2.5 [id number] - [id number] Implanted:Qty: 1 on 12/07/2014 by Juancarlos Trinidad MD at [facility] Left: Finger LANDON : ORTHOPAEDICS 11/18/2015 [id number] / / [id number] documented as of this encounter Visit Diagnoses [...] the patient have Health Care Power of Editorial Specialist? No Healthcare Agents on File Name Relationship Healthcare Agent Relationship Communication Estrella Seth Other - (no specific identity) Health Care Power of Editorial Specialist Care Teams Engineer Steam Relationship Specialty Start Date End Date Roberto Griffin MD [address] [place], [place] [id number] PCP - General Internal Medicine 04/10/20 documented as of this encounter
--- OUTSIDE RECORDS SUMMARY | 2023-08-22 22:14 | External Medical Summary | Summary of Care ---
Author Name Unknown Organization [facility] Address [address] [place] [address] Phone [phone] Care Team Providers Care Trust Clerk Name Role Phone Roberto Griffin MD Primary Care Provider + Reason for Visit * Reason Onset Date Comments Medication Refill 04/05/2023 Appointment 04/05/2023 Encounter Details Date Type Department Care Team Description 04/05/2023 Refill General Internal Medicine [facility] 200 [place] [address] Roberto Griffin MD [address] [place] [address] History of pulmonary embolism Allergies Active Allergy [...] day as needed. 0 Active nystatin (NYSTOP) 105553 UNIT/GM powderIndications:Cu taneous candidiasis Apply topically to [...] COPD, group C, by GOLD 2017 classification ([facility]),COPD, group D, by GOLD 2017 classification ([facility]) USE 2 PUFFS BY MOUTH EVERY 4 HOURS NEEDED SHORT OF BREATH 6.7 g 5 2 Active Magnesium Oxide 400 (241.3 Mg) MG Oral TabletIndications:Co ronary artery disease involving [place] coronary artery of [place] heart without angina pectoris Take by mouth [...] Solution (Duoneb)Indications: COPD, severity to be determined ([facility]),Wheezing Inhale 3 mL via nebulizer in the [...] [facility]. 0 3 Active guaiFENesin-Codeine 100-10 MG/5ML Oral [...] MG Oral TabletIndications:Co ronary artery disease involving [place] coronary artery of [place] heart without angina pectoris TAKE ONE TABLET BY MOUTH EVERY MORNING 90 Tablet 1 3 04/05/20 23 Discontinu ed(Refill) Metoprolol Succinate ER 50 MG Oral Tablet Extended Release 24 Hour (toPROL XL)Indications:Coron uziel artery disease involving [place] coronary artery of [place] heart without angina pectoris TAKE 1 & [...] 01/24/2021 Opioid dependence, uncomplicated 021 History of [place] (myocardial infarction) 05 /01/2021 Morbid obesity with BMI of 50.0-59.9, ad ult 10/04/2020 History of subdural hematoma 10/04/2020 Gastroesophageal reflux disease without esophagitis 10/04/2020 History of subarachnoid hemorrhage 10/04 Coronary artery disease involving [place] heart without angina pectoris 10/04/2020 COPD, group [...] Calculus of kidney 08/20/2015 02/01/2018 Overview: right, [place] CT Vitamin D deficiency 01/31/2015 02/01/2018 Body [...] mRNA, LNP-s, No Pre serve, 2-Dose Series (kidthing) 01/02/2021,12/05/2020 DTP Vaccine 07/19/2017,04/03/2014 Hepatitis B, 20+ [...] Telephone Encounter - DARIA Vega - 04/09/2023 3:12 PM EDT Letter sent, 3rd attempt 04/09 * Telephone Encounter - DARIA Vega [...] HASKINS * Telephone Encounter - Gary Haskins [facility] - 04/06/2023 9:03 AM EDT Per adherence tracker Tamsulosin filled 08/14/22 for 180 pills for 90 days. PC to E [id number] [address] [place] [address] to determine who wrote script. Unable to connect with anyone in a reasonable time. [employer] out of business. Tried to call patient about Tamsulosin; LMOVM. If patient calls back please transfer to [facility]. Please inquire how he has been taking Tamsulosin and who the script was written by. Thank you, Gary Haskins, PharmD, KATHLEEN Clinical Pharmacist Centralized Clinical Pharmacy Services (CCPS) (formerly Telepharmacy) 04/06/23 9:07 AM [phone] * Telephone Encounter - Jono Pollock MD [...] notified * Telephone Encounter - Gary Haskins [facility] - 04/05/2023 5:23 PM EDT [...] HASKINS * Telephone Encounter - Gary Haskins [facility] - 04/05/2023 5:22 PM EDT Unable to authorize medication refills for pended medication(s) at this time. Part of the protocol criteria used for refill authorization was not satisfied. Patient non adherent to medications. Tamsulosin dose requested different than last prescribed. Please review and approve if appropriate. Thank you, Gary Haskins, PharmD, KATHLEEN Clinical Pharmacist Centralized Clinical Pharmacy Services (CCPS) (formerly Telepharmacy) 04/05/23 5:22 PM [phone] * Telephone Encounter - Shanti Ann CPhT - 04/05/2023 5:05 PM EDT Did you pend patient's preferred pharmacy and medication before forwarding?yes Pharmacy: E [id number] [address] [facility] Pending Prescriptions: Disp Refills Tamsulosin HCl [...] Team Description 04/13/2023 Laboratory Laboratory Processing [facility] Draw [address] [place] [address] 04/14/20[facility] [address] [place] [address] Health Maintenance Due Date Last Done Comments DISCUSS TOBACCO CESSATION (REFER TO SMARTSET #3291) 1970 HIV Screening 1985 Pneumococcal Vaccine: Pediatrics (0 to 5 Years) and At-Risk Patients (6 to 64 Years) (2 - PCV) 05/22/2010 05/22/2009 Cologuard 2015 Fecal Occult Blood Test 2015 Sigmoidoscopy 2015 *ADVANCE DIRECTIVE NOT ON FILE 02/03/2020 LUNG CANCER SCREENING - USE SMARTSET [id number] 2020 02/10/2019, 07/19/2017, 05/09/2017, Additional history exists [...] this encounter Medical Devices Implanted Type Area Hospitalist Program Director Device Identifier Shelf Expiration Date Model / Serial / Lot Tube Flex 3.0x2.5 [id number] - [id number] Implanted:Qty: 1 on 12/07/2014 by Juancarlos Trinidad MD at [facility] Left: Finger LANDON : ORTHOPAEDICS 11/18/2015 [id number] / / [id number] documented as of this encounter Visit Diagnoses [...] the patient have Health Care Power of Clearing Hand? No Healthcare Agents on File Name Relationship Healthcare Agent Relationship Communication Estrella Seth Other - (no specific identity) Health Care Power of Clearing Hand Care Teams Trust Clerk Relationship Specialty Start Date End Date Roberto Griffin MD [address] [place] [address] PCP - General Internal Medicine 04/10/20 documented as of this encounter
--- OUTSIDE RECORDS SUMMARY | 2023-08-22 22:14 | External Medical Summary | Summary of Care ---
Author Name Unknown Organization [facility] Address [address] [place] [address] Phone [phone] Care Team Providers Care Occupational Health Rn Name Role Phone Roberto Askew MD Primary Care Provider + Reason for Visit * Reason Onset Date Comments Hospital Follow-Up 04/19/2023 Encounter Details Date Type Department Care Team Description 04/19/2023 Telephone Ancillary Maya Orr [place] [address] [place] [address] Kimmy Hill, [facility] Follow-Up Allergies Active [...] day as needed. 0 Active nystatin (NYSTOP) 991901 UNIT/GM powderIndications:Cut aneous candidiasis Apply topically to [...] OPD, group C, by GOLD 2017 classification (HCC),COPD, group D, by GOLD 2017 classification (HCC) USE 2 PUFFS BY MOUTH EVERY 4 HOURS NEEDED SHORT OF BREATH 6.7 g 5 11/24/2021 Active Magnesium Oxide 400 (241.3 Mg) MG Oral TabletIndications:Cor onary artery disease involving cous[place]ta coronary artery of cous[place]ta heart without angina pectoris Take by mouth [...] hemoglobin A1c goal of less than 8.0% ([facility]) Use as directed. 1 Kit 0 10/30/2022 Active Accu-Chek Guide In Vitro Strip (Glucose Blood)Indications:Typ e 2 diabetes mellitus with hemoglobin A1c goal of less than 8.0% ([facility]) Use to check sugars 3 times a day 100 Strip 1 10/30/2022 Active Accu-Chek Softclix LancetsIndications:Ty pe 2 diabetes mellitus with hemoglobin A1c goal of less than 8.0% ([facility]) Use to check sugars 3 times [...] in the morning. Follow taper instructions from [facility]. 0 12/25/2022 Active guaiFENesin-Codeine 100-10 [...] MG Oral TabletIndications:Cor onary artery disease involving cous[place]ta coronary artery of coushatta heart without angina pectoris Take 1 Tablet by mouth in the morning. In the morning.. 90 Tablet 1 04/05/2023 Active Metoprolol Succinate ER 50 MG Oral Tablet Extended Release 24 Hour (toPROL XL)Indications:Harman ry artery disease involving coushatta coronary artery of coushatta heart without angina pectoris TAKE 1 & [...] subarachnoid hemorrhage 10/04 Coronary artery disease involving cous[place]ta heart without angina pectoris 10/04/2020 COPD, group [...] Date Resolved Date Hyperlipidemia, unspecified 01/24/202102/19 Indwelling Fontaine catheter present 06/05/2020 12/10/2021 Coronary [...] Calculus of kidney 08/20/2015 02/01/2018 Overview: right, [place] CT Vitamin D deficiency 01/31/2015 02/01/2018 [...] mRNA, LNP-s, No Pre serve, 2-Dose Series ([email or web address]) 01/02/2021,12/05/2020 DTP Vaccine 07/19/2017,04/03/2014 Hepatitis B, 20+ [...] Telephone Encounter - Kimmy Reyna RN - 04/20/2023 11:03 AM EDT Images from the original note were not included. Transitions of Care Note Reason for Referral:Recent Admission Phone visit for follow up: FARIDA # 2 Admitted to: [facility], Date: 04/07/2023 Discharged to: Home self care, Date: 04/16/2023 Diagnosis driving hospitalization: Acute COPD exacerbation Acute metabolic encephalopath Fontaine catheter associated UTI Source/Contact: Patient SUBJECTIVE Consent: Verbal consent for review of hospital discharge: Yes REVIEW OF SYSTEMS Patient/Other Reports: Current patient/caregiver problems or concerns: no concersn CV: Denies problems Edema- had some edema of legs yesterday but it has resolved Pulmonary: Denies problems Chills/Sweats/Fever:Denies chills/sweats Denies fever Appetite:Denies problems such as nausea, vomiting, burning, decreased appetite Current diet: DM Bowel: frequent, loose stools Bladder: ostomy/indwelling catheter: fontaine catheter Wound (If applicable): N/A Pain:Location- foot, pinched nerve in back and knees Intensity- 8 (Scale 0-10) Sleep:Denies problems FUNCTIONAL STATUS: ADL'S: Needs Assistance With:N/A as pt is independent IADL'S: Needs Assistance With:Grocery Shopping, Cooking food and Routine Housework Cognitive and Mental Health: denies problems, alert and oriented x 3 and able to communicate, understand instructions, process information. MEDICATION RECONCILIATION Medications: Discharge med list reviewed with patient or caregiver New medication(s) filled since hospitalization- see below Changed medication(s) since hospitalization see below Discontinued medication(s) since hospitalization- see below Patient states that some of the medication is too expensive so he will not be taking it. Encouragedhim to check out [facility]. ASSESSMENT Medication Risk Assessment: PolyPharmacy Patient states he will not be taking medications that are to expensive Did patient fail outpatient treatment? Yes Discharge instructions available for review? Yes PLAN Symptom Monitoring Interventions:Member/caregiver education - signs and symptoms to contact PrimaryCare (DO NOT DELETE-Three vaz symptoms patient is to report to PCP) 1. SOB 2. Fever, chills, sweats 3. 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 I have called multiple ambulance companies in the area in the past and left Bill messages regarding costs. Bill states he can not afford cost. Encourgaged Bill to call his insurance company to see if they would provide transportation to appointments. Educated on role of FARIDA completed with patient/caregiver. Educated patient/caregiver on patient right to have input on FARIDA plan of care. Verification of Home Health/DME if indicated: YES Home health was in today drawing labs Identified Care Gaps: Yes Care Gaps closed this call: Other: Unable to make or confirm appointment due to patients transportation issues Re-evaluation of Plan of Care and progress towards goals achievement: Patient education this visit: Verbal, Encouraged patient to call insurance company to see if they would provide transportation toprovider appointments. Plan to Unable to finalize plan due to transportation issues. Kimmy Reyna RN * Telephone Encounter - Kimmy Reyna RN - 04/19/2023 12:31 PM EDT Transitions of Care Note Reason for Referral:Recent Admission Phone visit for follow up: FARIDA # 1 Left message with my name and return number. Explained I wanted to speak to Bill to see how he was doing since coming home from the hospital, to go over his medications and to set up follow up appointment. Will try to contact tomorrow. Admitted to: [facility], Date: 04/07/2023 Discharged to: Home self care, Date: 04/16/2023 Diagnosis driving hospitalization: Acute COPD exacerbation Acute metabolic encephalopath Fontaine catheter associated UTI documented in this encounter Plan of Treatment Upcoming Encounters Date Type Specialty Care Team Description 04/20/2023 Anticoagulation Pharmacy Telepharmacy, [facility] [address] [place] [address] Health Maintenance Due Date Last Done Comments DISCUSS TOBACCO CESSATION (REFER TO SMARTSET #1981) 1970 HIV Screening 1985 Pneumococcal Vaccine: Pediatrics (0 to 5 Years) and At-Risk Patients (6 to 64 Years) (2 - PCV) 05/22/2010 05/22/2009 Cologuard 2015 Fecal Occult Blood Test 2015 Sigmoidoscopy 2015 *ADVANCE DIRECTIVE NOT ON FILE 02/03/2020 LUNG CANCER SCREENING - USE SMARTSET [id number] 2020 02/10/2019, 07/19/2017, 05/09/2017, Additional history exists [...] this encounter Medical Devices Implanted Type Area Manager Placement Device Identifier Shelf Expiration Date Model / Serial / Lot Tube Flex 3.0x2.5 [id number] - [id number] Implanted:Qty: 1 on 12/07/2014 by Juancarlos Trinidad MD at [facility] Left: Finger LANDON : ORTHOPAEDICS 11/18/2015 [id number] / / [id number] documented as of this encounter Advance Directives [...] the patient have Health Care Power of Slag Dumper? No Healthcare Agents on File Name Relationship Healthcare Agent Relationship Communication Estrella Seth Other - (no specific identity) Health Care Power of Slag Dumper Care Teams Occupational Health Rn Relationship Specialty Start Date End Date Roberto Askew MD [address] [place] [id number] PCP - General Internal Medicine 04/10/20 documented as of this encounter
--- OUTSIDE RECORDS SUMMARY | 2023-08-22 22:14 | External Medical Summary | Summary of Care ---
Author Name Unknown Organization [facility] Address [address] [place] [address] Phone [phone] Care Team Providers Care Loan Closer Name Role Phone Roberto Griffin MD Primary Care Provider + Reason for Visit * Reason Onset Date Comments Medication Refill 04/21/2023 Encounter Details Date Type Department Care Team Description 04/21/2023 Refill General Internal Medicine [facility] [address] [facility] [place] [address] Roberto Griffin MD [address] [place] [address] Allergies Active Allergy Reactions Severity Noted Date [...] day as needed. 0 Active nystatin (NYSTOP) 154561 UNIT/GM powderIndications:Cu taneous candidiasis Apply topically to [...] C, by GOLD 2017 classification ([facility]),COPD, group D, by GOLD 2017 classification ([facility]) USE 2 PUFFS BY MOUTH EVERY 4 HOURS NEEDED SHORT OF BREATH 6.7 g 5 2 Active Magnesium Oxide 400 (241.3 Mg) MG Oral TabletIndications:Co ronary artery disease involving ely shoshone coronary artery of ely shoshone heart without angina pectoris Take by [...] goal of less than 8.0% ([facility]) Use as directed. 1 Kit 0 3 [...] morning. Follow taper instructions from [facility]. 0 3 Active guaiFENesin-Codeine 100-10 MG/5ML [...] MG Oral TabletIndications:Co ronary artery disease involving ely shoshone coronary artery of ely shoshone heart without angina pectoris Take 1 Tablet by mouth in the morning. In the morning.. 90 Tablet 1 3 Active Metoprolol Succinate ER 50 MG Oral Tablet Extended Release 24 Hour (toPROL XL)Indications:Coron uziel artery disease involving ely shoshone coronary artery of ely shoshone heart without angina pectoris TAKE 1 [...] the morning. 90 Tablet 2 3 Active Folic Acid 1 MG Oral [...] subarachnoid hemorrhage 10/04 Coronary artery disease involving ely shoshone heart without angina pectoris 10/04/2020 COPD, [...] Noted Date Resolved Date Hyperlipidemia, unspecified 01/24/2021 0601/2021 Indwelling Lloyd catheter present 06/05/2020 12/10/2021 Coronary [...] Calculus of kidney 08/20/2015 02/01/2018 Overview: right, [place] CT Vitamin D deficiency 01/31/2015 02/01/2018 Body [...] mRNA, LNP-s, No Pre serve, 2-Dose Series ([employer]) 01/02/2021,12/05/2020 DTP Vaccine 07/19/2017,04/03/2014 Hepatitis B, 20+ [...] Encounter - Roberto Griffin MD - 04/21/2023 1:22 PM EDTSigned Prescriptions: Disp Refills Folic Acid 1 MG Oral Tablet 90 Tab*2 Sig: Take 1 Tablet by mouth in the morning. Authorizing Provider: ROBERTO GRIFFIN * Telephone Encounter - Yanique Marrufo LPN - 04/21/2023 1:21 PM EDTPending Prescriptions: Disp Refills Folic Acid 1 MG Oral Tablet 90 Tab*2 Sig: Take 1 Tablet by mouth in the morning. * Telephone Encounter - Milka Phoebe Alegria - 04/21/2023 12:18 PM EDT Did you pend patient's preferred pharmacy and medication before forwarding?yes [facility] [address] [place] [address] [place] Pending Prescriptions: Disp Refills Folic Acid 1 MG Oral Tablet 90 Tab*2 Sig: Take 1 Tablet by mouth in the morning. Last Visit: 08/10/2022 (in office), 12/10/2021 (telemedicine) Next Visit: Visit date not found If no future appointments scheduled, and last appointment is greater than a year ago, please schedule patient for a follow-up appointment Last date the medication was ordered: 06/15/22 Is this request for a controlled substance?No [...] Care Team Description 04/27/2023 Laboratory Laboratory Processing [facility] Mobile Home Draw [address] [place] [address] 04/28/2023 [facility] [address] [place] [address] Health Maintenance Due Date Last Done Comments DISCUSS TOBACCO CESSATION (REFER TO SMARTSET #3291) 1970 HIV Screening 1985 Pneumococcal Vaccine: Pediatrics (0 to 5 Years) and At-Risk Patients (6 to 64 Years) (2 - PCV) 05/22/2010 05/22/2009 Cologuard 2015 Fecal Occult Blood Test 2015 Sigmoidoscopy 2015 *ADVANCE DIRECTIVE NOT ON FILE 02/03/2020 LUNG CANCER SCREENING - USE SMARTSET [id number] 2020 02/10/2019, 07/19/2017, 05/09/2017, Additional history exists [...] this encounter Medical Devices Implanted Type Area Curing Bin Operator Device Identifier Shelf Expiration Date Model / Serial / Lot Tube Flex 3.0x2.5 [id number] - [id number] Implanted:Qty: 1 on 12/07/2014 by Juancarlos Trinidad MD at [facility] [place] Left: Finger [employer]ON : ORTHOPAEDICS 11/18/2015 [id number] / / [id number] documented as of this encounter Advance Directives [...] the patient have Health Care Power of Tire Regrooving Machine Operator? No Healthcare Agents on File Name Relationship Healthcare Agent Relationship Communication Estrella Seth Other - (no specific identity) Health Care Power of Tire Regrooving Machine Operator Care Teams Loan Closer Relationship Specialty Start Date End Date Roberto Griffin MD [address] [place] [phone] PCP - General Internal Medicine 04/10/20 documented as of this encounter
--- OUTSIDE RECORDS SUMMARY | 2023-08-22 22:15 | External Medical Summary ---
Author Name Unknown Address Unknown Organization K0G[facility] [address] [place] [id number] Laboratory Report Ordering Provider Test Date Status ABADOMENICALOINEL 04/06/2023 08:53:00 Final Standing order for pt/inr. < br/>Please draw pt/inr every 1 to 4 weeks as requested
Results to [facility]

Warfarin Therapy
INR: 2.0-3.0 conventional anticoagulation
INR: 2.5-3.5 high intensity anticoagulation Observation Date Value Abnormality Reference (Units ) Status PT 04/06/2023 08:53:00 48.4 Above high normal 11 .6-15.2 (seconds) Final Results rechecked. INR 04/06/2023 08:53:00 5.2 Above upper panic li mits 0.8-1.2 Final Results rechecked. Performing Location [facility] [address] [place] [id number]
--- OUTSIDE RECORDS SUMMARY | 2023-08-22 22:15 | External Medical Summary | Summary of Care ---
Author Name Unknown Organization [facility] Address [address] [place] [address] Phone [phone] Care Team Providers Care Geospatial Scientist Name Role Phone Roberto Askew MD Primary Care Provider + Reason for Visit * Reason Onset Date Comments Other 04/06/2023 Encounter Details Date Type Department Care Team Description 04/06/2023 Telephone Pharmacy Call Center [address] [facility] [address] [facility] [address] [facility] [place] [address] Other Allergies Active Allergy Reactions Severity Noted Date [...] as of this encounter (statuses as of 04/06/2023) Medications Medication Sig Dispensed Refills Start Date [...] day as needed. 0 Active nystatin (NYSTOP) 104686 UNIT/GM powderIndications:Cut aneous candidiasis Apply topically to [...] Oral BID PRN, Constipation, Reported on 08/10/2022 Tamsulosin HCl 0.4 MG Oral Capsule (Flomax) TAKE ONE CAPSULE BY MOUTH DAILY. 30 Cap 11 03/27/2021 Active Additional Information Patient taking differently: 0.8 mg Oral Daily(AM), Informant: At Discharge, Reported on 08/10/2022 Fluticasone Propionate 93 MCG/ACT [...] MG Oral TabletIndications:Cor onary artery disease involving [place] coronary artery of [place] heart without angina pectoris Take by mouth [...] NEEDED NAUSEA 20 Tablet 1 06/15/2022 Active Atorvastatin Calcium 80 MG Oral Tablet (Lipitor) Take by mouth 1 Tablet in the morning. To take in the afternoon.. 30 Tablet 1 07/23/2022 Active Ipratropium-Albuterol 0.5-2.5 (3) MG/3ML Inhalation Solution [...] MG Oral TabletIndications:Cor onary artery disease involving [place] coronary artery of [place] heart without angina pectoris Take 1 Tablet by mouth in the morning. In the morning.. 90 Tablet 1 04/05/2023 Active Metoprolol Succinate ER 50 MG Oral Tablet Extended Release 24 Hour (toPROL XL)Indications:Harman ry artery disease involving [place] coronary artery of [place] heart without angina pectoris TAKE 1 & 1/2 TABLETS by mouth 2 TIMES A DAY 270 Tablet 1 04/05/2023 Active Warfarin Sodium 5 MG Oral Tablet (Coumadin)Indications :History of pulmonary embolism TAKE 1/2 TO 1 TABLET EVERY DAY DIRECTED BY COUMADIN CLINIC. 90 Tablet 3 04/05/2023 Active documented as of this encounter (statuses as of 04/06/2023) Active Problems Problem Noted Date Bandemia 10/24/2021 [...] 01/24/2021 Opioid dependence, uncomplicated 021 History of ME (myocardial infarction) Morbid obesity with BMI of 50.0-59.9, ad ult 10/04/2020 History of subdural hematoma 10/04/2020 Gastroesophageal reflux disease without esophagitis 10/04/2020 History of subarachnoid hemorrhage 10/04 Coronary artery disease involving [place] heart without angina pectoris 10/04/2020 COPD, group [...] as of this encounter (statuses as of 04/06/2023) Resolved Problems Problem Noted Date Resolved Date [...] Calculus of kidney 08/20/2015 02/01/2018 Overview: right, [place] CT Vitamin D deficiency 01/31/2015 02/01/2018 Body [...] as of this encounter (statuses as of 04/06/2023) Immunizations Name Administration Dates Next Due COVID-19 mRNA, LNP-s, No Pre serve, 2-Dose Series ([employer]) 01/02/2021,12/05/2020 DTP Vaccine 07/19/2017,04/03/2014 Hepatitis B, 20+ [...] encounter Miscellaneous Notes * Telephone Encounter - ARTEM Clemente - 04/06/2023 10:52 AM EDT [facility] documented in this encounter Plan of Treatment Upcoming Encounters Date Type Specialty Care Team Description 04/06/2023 [facility] [address] [place] [address] Health Maintenance Due Date Last Done Comments DISCUSS TOBACCO CESSATION (REFER TO SMARTSET #0097) 1970 HIV Screening 1985 Pneumococcal Vaccine: Pediatrics (0 to 5 Years) and At-Risk Patients (6 to 64 Years) (2 - PCV) 05/22/2010 05/22/2009 Cologuard 2015 Fecal Occult Blood Test 2015 Sigmoidoscopy 2015 *ADVANCE DIRECTIVE NOT ON FILE 02/03/2020 LUNG CANCER SCREENING - USE SMARTSET [id number] 2020 02/10/2019, 07/19/2017, 05/09/2017, Additional history exists [...] this encounter Medical Devices Implanted Type Area Candy Feeder Device Identifier Shelf Expiration Date Model / Serial / Lot Tube Flex 3.0x2.5 [id number] - [id number] Implanted:Qty: 1 on 12/07/2014 by Juancarlos Trinidad MD at [facility] [place] Left: Finger [employer]ANDON : ORTHOPAEDICS 11/18/2015 [id number] / / [id number] documented as of this encounter Advance Directives [...] the patient have Health Care Power of Railroad Switchman? No Healthcare Agents on File Name Relationship Healthcare Agent Relationship Communication Estrella Seth Other - (no specific identity) Health Care Power of Railroad Switchman Care Teams Geospatial Scientist Relationship Specialty Start Date End Date Roberto Askew MD [address] [place] [phone] PCP - General Internal Medicine 04/10/20 documented as of this encounter
--- OUTSIDE RECORDS SUMMARY | 2023-08-22 22:15 | External Medical Summary | Summary of Care ---
Author Name Unknown Organization [facility] Address [address] [place] [address] Phone [phone] Care Team Providers Care Director Hydrogen Storage Engineering Name Role Phone Roberto Askew MD Primary Care Provider + Reason for Visit * Reason Onset Date Comments Follow Up 04/07/2023 Encounter Details Date Type Department Care Team Description 04/07/2023 Telephone General Internal Medicine [facility] [address] [facility] [place] [address] Roberto Askew MD [address] [place] [address] Follow Up Allergies Active Allergy Reactions Severity [...] day as needed. 0 Active nystatin (NYSTOP) 241510 UNIT/GM powderIndications:Cut aneous candidiasis Apply topically to [...] C, by GOLD 2017 classification ([facility]),COPD, group D, by GOLD 2017 classification (HCC) USE 2 PUFFS BY MOUTH EVERY 4 HOURS NEEDED SHORT OF BREATH 6.7 g 5 11/24/2021 Active Magnesium Oxide 400 (241.3 Mg) MG Oral TabletIndications:Cor onary artery disease involving [place] coronary artery of [place] heart without angina pectoris Take by mouth [...] OPD, severity to be determined ([facility]),Wheezing Inhale 3 mL via nebulizer in [...] in the morning. Follow taper instructions from [facility]. 0 12/25/2022 Active guaiFENesin-Codeine 100-10 [...] MG Oral TabletIndications:Cor onary artery disease involving [place] coronary artery of [place] heart without angina pectoris Take 1 Tablet by mouth in the morning. In the morning.. 90 Tablet 1 04/05/2023 Active Metoprolol Succinate ER 50 MG Oral Tablet Extended Release 24 Hour (toPROL XL)Indications:Harman ry artery disease involving [place] coronary artery of [place] heart without angina pectoris TAKE 1 & [...] subarachnoid hemorrhage 10/04 Coronary artery disease involving [place] heart without angina pectoris 10/04/2020 COPD, group [...] Calculus of kidney 08/20/2015 02/01/2018 Overview: right, [place] CT Vitamin D deficiency 01/31/2015 02/01/2018 Body [...] mRNA, LNP-s, No Pre serve, 2-Dose Series ([employer]) 01/02/2021,12/05/2020 DTP Vaccine 07/19/2017,04/03/2014 Hepatitis B, 20+ [...] Telephone Encounter - Kimmy Reyna RN - 04/07/2023 2:34 PM EDT Called patient to arrange appointment for hospital follow up. Left message on machine, again stating that an ambulance would cost $250 and that he should contacthis insurance company to see if they would cover cost of transport. Left my phone number so he could contact me for assistance scheduling. documented in this encounter Plan of Treatment Upcoming Encounters Date Type Specialty Care Team Description 04/13/2023 Laboratory Laboratory Processing [facility] [place] Mobile Home Draw [address] [place] [address] Health Maintenance Due Date Last Done Comments DISCUSS TOBACCO CESSATION (REFER TO SMARTSET #7933) 1970 HIV Screening 1985 Pneumococcal Vaccine: Pediatrics (0 to 5 Years) and At-Risk Patients (6 to 64 Years) (2 - PCV) 05/22/2010 05/22/2009 Cologuard 2015 Fecal Occult Blood Test 2015 Sigmoidoscopy 2015 *ADVANCE DIRECTIVE NOT ON FILE 02/03/2020 LUNG CANCER SCREENING - USE SMARTSET [id number] 2020 02/10/2019, 07/19/2017, 05/09/2017, Additional history exists [...] this encounter Medical Devices Implanted Type Area Launch Manager Device Identifier Shelf Expiration Date Model / Serial / Lot Tube Flex 3.0x2.5 [id number] - [id number] Implanted:Qty: 1 on 12/07/2014 by Juancarlos Trinidad MD at [facility] Left: Finger [employer]ON : ORTHOPAEDICS 11/18/2015 [id number] / / [id number] documented as of this encounter Advance Directives [...] the patient have Health Care Power of Pediatrician Active Practice? No Healthcare Agents on File Name Relationship Healthcare Agent Relationship Communication Estrella Seth Other - (no specific identity) Health Care Power of Pediatrician Active Practice Care Teams Director Hydrogen Storage Engineering Relationship Specialty Start Date End Date Roberto Askew MD [address] [place] [id number] PCP - General Internal Medicine 04/10/20 documented as of this encounter
--- OUTSIDE RECORDS SUMMARY | 2023-08-22 22:15 | External Medical Summary | Summary of Care ---
Author Name Unknown Organization [facility] Address [address] [place] [address] Phone [phone] Care Team Providers Care Nursery Rn Name Role Phone Roberto Askew MD Primary Care Provider + Reason for Visit * Reason Comments Dosage Adjustment Via Phone (anticoag Cl inic) Encounter Details Date Type Department Care Team Description 04/06/2023 Anticoagulation Pharmacy Call Center [phone] Public [place] [address] [facility] [address] History of pulmonary embolism* Allergies Active Allergy [...] day as needed. 0 Active nystatin (NYSTOP) 937608 UNIT/GM powderIndications:Cut aneous candidiasis Apply topically to [...] in the morning. Follow taper instructions from [facility]. 0 12/25/2022 Active guaiFENesin-Codeine 100-10 [...] Calculus of kidney 08/20/2015 02/01/2018 Overview: right, [place] CT Vitamin D deficiency 01/31/2015 02/01/2018 Body [...] mRNA, LNP-s, No Pre serve, 2-Dose Series ([employer]) 01/02/2021,12/05/2020 DTP Vaccine 07/19/2017,04/03/2014 Hepatitis B, [...] Progress Notes * Keren Tipton CPhT - 04/06/2023 3:44 PM EDT Contacts Type Contact Phone/Fax 04/06/2023 03:42 PM EDT Phone (Outgoing) Stanton Milner (Self) [phone] (H) Left Message Advised patient to contact Anticoagulation Clinic if any unusual bruising or bleeding, recent illness, changes in medication, or questions/concerns. PT/INR results, Coumadin dose instructions, and next PT/INR date communicated as noted by Pharmacist: Yes Keren Tipton CPhT 04/06/2023, 3:44 PM * Keren Sanchez [facility] - 04/06/2023 12:21 PM EDT Images from the original note were not included. Coumadin Clinic (region specific) Current Warfarin Dose As of 04/06/2023 Warfarin maintenance plan: 2.5 mg (5 mg x 0.5) every Tue, Micki; 5 mg (5 mg x 1) all other days INR Result As of 04/06/2023 INR goal: 2.0-3.0 INR used for dosin.2 (04/06/2023) Warfarin Plan As of 04/06/2023 Full warfarin instructions: 04/06: Hold; 04/07: Hold; Otherwise 2.5 mg every Tue, Micki, Sat; 5 mg all other days Next INR check: 04/13/2023 Repeat PT/INR in 1 week(s) Weekly dose: decreased Additional Dosing Information: Description GML([facility]) - pt prefers Tues GML at this time Tech to contact patient with dose instructions as noted. Keren Sanchez RPh 04/06/2023, 12:21 PM documented in this encounter Plan of Treatment Upcoming Encounters Date Type Specialty Care Team Description 04/13/[address] [facility] Mobile Home Draw [address] [place] [address] Health Maintenance Due Date Last Done Comments DISCUSS TOBACCO CESSATION (REFER TO SMARTSET #3009) 1970 HIV Screening 1985 Pneumococcal Vaccine: Pediatrics (0 to 5 Years) and At-Risk Patients (6 to 64 Years) (2 - PCV) 05/22/2010 05/22/2009 Cologuard 2015 Fecal Occult Blood Test 2015 Sigmoidoscopy 2015 *ADVANCE DIRECTIVE NOT ON FILE 02/03/2020 LUNG CANCER SCREENING - USE SMARTSET [id number] 2020 02/10/2019, 07/19/2017, 05/09/2017, Additional history exists [...] this encounter Medical Devices Implanted Type Area Tool Filer Hand Device Identifier Shelf Expiration Date Model / Serial / Lot Tube Flex 3.0x2.5 [id number] - [id number] Implanted:Qty: 1 on 12/07/2014 by Juancarlos Trinidad MD at [facility] Left: Finger LANDON : ORTHOPAEDICS 11/18/2015 [id number] / / [id number] documented as of this encounter Visit Diagnoses [...] the patient have Health Care Power of Level Vial Setter? No Healthcare Agents on File Name Relationship Healthcare Agent Relationship Communication Estrella Seth Other - (no specific identity) Health Care Power of Level Vial Setter Care Teams Nursery Rn Relationship Specialty Start Date End Date Roberto Askew MD [address] [place] [id number] PCP - General Internal Medicine 04/10/20 documented as of this encounter
--- OUTSIDE RECORDS SUMMARY | 2023-08-22 22:15 | External Medical Summary | Summary of Care ---
Author Name Unknown Organization [facility] Address [address] [place] [address] Phone [phone] Care Team Providers Care Biological Photographer Name Role Phone Roberto Askew MD Primary Care Provider + Reason for Visit * Reason Comments Dosage Adjustment Via Phone (anticoag Cl inic) Encounter Details Date Type Department Care Team Description 03/24/2023 Anticoagulation Pharmacy Call Center [phone] Public [place] [address] [facility] [address] History of pulmonary embolism* Allergies Active Allergy [...] as of this encounter (statuses as of 03/24/2023) Medications Medication Sig Dispensed Refills Start Date [...] day as needed. 0 Active nystatin (NYSTOP) 429671 UNIT/GM powderIndications:Cut aneous candidiasis Apply topically to [...] OPD, group C, by GOLD 2017 classification ([facility]),COPD, group D, by GOLD 2017 classification ([facility]) USE 2 PUFFS BY MOUTH EVERY 4 HOURS NEEDED SHORT OF BREATH 6.7 g 5 11/24/2021 Active Magnesium Oxide 400 (241.3 Mg) MG Oral TabletIndications:Cor onary artery disease involving [place] coronary artery of [place] heart without angina pectoris Take by mouth [...] NEEDED NAUSEA 20 Tablet 1 06/15/2022 Active Warfarin Sodium 5 MG Oral Tablet (Coumadin)Indications :History of pulmonary embolism TAKE 1/2 TO 1 TABLET EVERY DAY DIRECTED BY COUMADIN CLINIC. 90 Tablet 3 07/16/2022 Active Atorvastatin Calcium 80 MG Oral Tablet [...] hemoglobin A1c goal of less than 8.0% ([facility]) Use as directed. 1 Kit 0 10/30/2022 Active Accu-Chek Guide In Vitro Strip (Glucose Blood)Indications:Typ e 2 diabetes mellitus with hemoglobin A1c goal of less than 8.0% ([facility]) Use to check sugars 3 times a day 100 Strip 1 10/30/2022 Active Accu-Chek Softclix LancetsIndications:Ty pe 2 diabetes mellitus with hemoglobin A1c goal of less than 8.0% ([facility]) Use to check sugars 3 [...] Wednesday only. 28 Tablet 3 12/04/2022 Active Isosorbide Dinitrate 30 MG Oral TabletIndications:Cor onary artery disease involving [place] coronary artery of [place] heart without angina pectoris TAKE ONE TABLET BY MOUTH EVERY MORNING 90 Tablet 1 12/04/2022 Active Omeprazole 20 MG Oral Capsule [...] A MEAL 180 Tablet 1 12/10/2022 Active Metoprolol Succinate ER 50 MG Oral Tablet Extended Release 24 Hour (toPROL XL)Indications:Harman ry artery disease involving [place]elson lagoon coronary artery of [place]elson lag[place] heart without angina pectoris TAKE 1 & 1/2 TABLETS by mouth 2 TIMES A DAY 270 Tablet 2 12/09/2022 Active Potassium Chloride Terra ER 20 MEQ [...] the morning. Follow taper instructions from [facility]. 0 12/25/2022 Active guaiFENesin-Codeine 100-10 MG/5ML Oral Syrup (Robitussin AC) Take 5 mL by mouth 3 times a day as needed for Cough. 120 mL 0 12/25/2022 Active Benzonatate 100 MG Oral Capsule (Tessalon Perles) TAKEONE CAPSULE BY MOUTH EVERY MORNING, ONE AT NOON, AND ONE EVERY EVENING, FOR COUGH. 20 Capsule 0 12/30/2022 Active documented as of this encounter (statuses as of 03/24/2023) Active Problems Problem Noted Date Bandemia 10/24/2021 [...] 01/24/2021 Opioid dependence, uncomplicated 021 History of NE (myocardial infarction) Morbid obesity with BMI of 50.0-59.9, ad ult 10/04/2020 History of subdural hematoma 10/04/2020 Gastroesophageal reflux disease without esophagitis 10/04/2020 History of subarachnoid hemorrhage 10/04 Coronary artery disease involving nelson lagoon heart without angina pectoris 10/04/2020 COPD, group [...] as of this encounter (statuses as of 03/24/2023) Resolved Problems Problem Noted Date Resolved Date [...] Calculus of kidney 08/20/2015 02/01/2018 Overview: right, [place] CT Vitamin D deficiency 01/31/2015 02/01/2018 Body [...] as of this encounter (statuses as of 03/24/2023) Immunizations Name Administration Dates Next Due COVID-19 mRNA, LNP-s, No Pre serve, 2-Dose Series ([employer]) 01/02/2021,12/05/2020 DTP Vaccine 07/19/2017,04/03/2014 Hepatitis B, 20+ [...] this encounter Progress Notes * Alexandra Carrillo, [facility] - 03/24/2023 9:25 AM EDT Medication Therapy Disease Management - Anticoagulation Patient: Stanton Milner : 1970 Current Warfarin Dose As of 03/24/2023 Warfarin maintenance plan: 2.5 mg (5 mg x 0.5) every Wed, Wed; 5 mg (5 mg x 1) all other days Patient-Reported Symptoms: Per chart review, on 03/11, [facility] found out that pt was discharged from [facility] to home on previous warfarin dosing. [facility] attempted to schedule GML for 03/15, however the appt was cancelled as 'pt admitted'. I could not find admission documentation anywhere. Will attempt to schedule GML for 03/30 as pt prefers Tuesdays. INR Result As of 03/24/2023 INR goal: 2.0-3.0 INR used for dosing: No new INR was available at the time of this encounter. Warfarin Plan As of 03/24/2023 Full warfarin instructions: 2.5 mg every Tue, Micki; 5 mg all other days No change documented: Alexandra Carrillo izabella Next INR check: 03/30/2023 Additional Dosing Information: Description GML([facility]) - pt prefers Tues GML at this time Repeat PT/INR in 6 day(s) Weekly dose: not changed Alexandra Carrillo RPh Clinical Pharmacist 03/24/2023, 9:25 AM * Delilah Boland exhibition carver - 03/24/2023 7:45 AM EDT Patient did not have INR drawn with GML and does not have a future GML appointment scheduled at this time. Please advise as patient is a 4 day follow up call. Thank you, Delilah Boland Disbursing Agent [facility] 03/24/2023,7:46 AM documented in this encounter Plan of Treatment Health Maintenance Due Date Last Done Comments DISCUSS TOBACCO CESSATION (REFER TO SMARTSET #1051) 1970 HIV Screening 1985 Pneumococcal Vaccine: Pediatrics (0 to 5 Years) and At-Risk Patients (6 to 64 Years) (2 - PCV) 05/22/2010 05/22/2009 Cologuard 2015 Fecal Occult Blood Test 2015 Sigmoidoscopy 2015 *ADVANCE DIRECTIVE NOT ON FILE 02/03/2020 LUNG CANCER SCREENING - USE SMARTSET [id number] 2020 02/10/2019, 07/19/2017, 05/09/2017, Additional history exists [...] this encounter Medical Devices Implanted Type Area Junior Staff Accountant Device Identifier Shelf Expiration Date Model / Serial / Lot Tube Flex 3.0x2.5 [id number] - [id number] Implanted:Qty: 1 on 12/07/2014 by Juancarlos Trinidad MD at [facility] Left: Finger [employer]ANDON : ORTHOPAEDICS 11/18/2015 [id number] / / [id number] documented as of this encounter Visit Diagnoses [...] the patient have Health Care Power of Occupational Health Nurse? No Healthcare Agents on File Name Relationship Healthcare Agent Relationship Communication Estrella Seth Other - (no specific identity) Health Care Power of Occupational Health Nurse Care Teams Biological Photographer Relationship Specialty Start Date End Date Roberto Askew MD [address] [place] [id number] PCP - General Internal Medicine 04/10/20 documented as of this encounter
--- OUTSIDE RECORDS SUMMARY | 2023-08-22 22:15 | External Medical Summary | Summary of Care ---
Author Name Unknown Organization [facility] Address [address] [place] [address] Phone [phone] Care Team Providers Care Dopeman Name Role Phone Roberto Askew MD Primary Care Provider + Reason for Visit * Reason Comments Dosage Adjustment Via Phone (anticoag Cl inic) Encounter Details Date Type Department Care Team Description 03/31/2023 Anticoagulation Pharmacy Call Center [phone] Public [place] [address] [facility] [address] History of pulmonary embolism* Allergies Active Allergy [...] as of this encounter (statuses as of 03/31/2023) Medications Medication Sig Dispensed Refills Start Date [...] day as needed. 0 Active nystatin (NYSTOP) 628802 UNIT/GM powderIndications:Cut aneous candidiasis Apply topically to [...] C, by GOLD 2017 classification ([facility]),COPD, group D, by GOLD 2017 classification ([facility]) USE 2 PUFFS BY MOUTH EVERY 4 HOURS NEEDED SHORT OF BREATH 6.7 g 5 11/24/2021 Active Magnesium Oxide 400 (241.3 Mg) MG Oral TabletIndications:Cor onary artery disease involving augustine coronary artery of augustine heart without angina pectoris Take by mouth [...] goal of less than 8.0% ([facility]) Use as directed. 1 Kit 0 10/30/2022 Active Accu-Chek Guide In Vitro Strip (Glucose Blood)Indications:Typ e 2 diabetes mellitus with hemoglobin A1c goal of less than 8.0% ([facility]) Use to check sugars 3 times a day 100 Strip 1 10/30/2022 Active Accu-Chek Softclix LancetsIndications:Ty pe 2 diabetes mellitus with hemoglobin A1c goal of less than 8.0% ([facility]) Use to check sugars 3 [...] MG Oral TabletIndications:Cor onary artery disease involving augustine coronary artery of augustine heart without angina pectoris TAKE ONE TABLET [...] Hour (toPROL XL)Indications:Harman ry artery disease involving augustine coronary artery of augustine heart without angina pectoris TAKE 1 & [...] morning. Follow taper instructions from [facility]. 0 12/25/2022 Active guaiFENesin-Codeine 100-10 [...] as of this encounter (statuses as of 03/31/2023) Active Problems Problem Noted Date Bandemia 10/24/2021 [...] subarachnoid hemorrhage 10/04 Coronary artery disease involving augustine heart without angina pectoris 10/04/2020 COPD, group [...] as of this encounter (statuses as of 03/31/2023) Resolved Problems Problem Noted Date Resolved Date [...] Calculus of kidney 08/20/2015 02/01/2018 Overview: right, [place] CT Vitamin D deficiency 01/31/2015 02/01/2018 Body [...] as of this encounter (statuses as of 03/31/2023) Immunizations Name Administration Dates Next Due COVID-19 mRNA, LNP-s, No Pre serve, 2-Dose Series ([employer]) 01/02/2021,12/05/2020 DTP Vaccine 07/19/2017,04/03/2014 Hepatitis B, 20+ [...] of this encounter Progress Notes * ARTEM Albert - 03/31/2023 8:29 AM EDT Contacts Type Contact Phone/Fax 03/31/2023 08:28 AM EDT Phone (Outgoing) Stanton Milner (Self) [phone] (H) Left Message Advised patient to contact Anticoagulation Clinic if any unusual bruising or bleeding, recent illness, changes in medication, or questions/concerns. PT/INR results, Coumadin dose instructions, and next PT/INR date communicated as noted by Pharmacist: Yes ARTEM Albert 03/31/2023, 8:29 AM * Keren Sanchez [facility] - 03/31/2023 8:01 AM EDT Images from the original note were not included. Coumadin Clinic (region specific) Current Warfarin Dose As of 03/31/2023 Warfarin maintenance plan: 2.5 mg (5 mg x 0.5) every Tue, Micki; 5 mg (5 mg x 1) all other days INR Result As of 03/31/2023 INR goal: 2.0-3.0 INR used for dosin.2 (03/30/2023) Warfarin Plan As of 03/31/2023 Full warfarin instructions: 03/31: Hold; Otherwise 2.5 mg every Tue, Micki; 5 mg all other days Next INR check: 04/06/2023 Repeat PT/INR in 1 week(s) Weekly dose: not changed Additional Dosing Information: Description GML([facility]) - pt prefers Tues GML at this time Tech to contact patient with dose instructions as noted. Keren Sanchez RPh 03/31/2023, 8:02 AM documented in this encounter Plan of Treatment Upcoming Encounters Date Type Specialty Care Team Description 04/07/2023 Anticoagulation Pharmacy Telepharmacy, [facility] [address] [place] [address] Health Maintenance Due Date Last Done Comments DISCUSS TOBACCO CESSATION (REFER TO SMARTSET #0258) 1970 HIV Screening 1985 Pneumococcal Vaccine: Pediatrics (0 to 5 Years) and At-Risk Patients (6 to 64 Years) (2 - PCV) 05/22/2010 05/22/2009 Cologuard 2015 Fecal Occult Blood Test 2015 Sigmoidoscopy 2015 *ADVANCE DIRECTIVE NOT ON FILE 02/03/2020 LUNG CANCER SCREENING - USE SMARTSET [id number] 2020 02/10/2019, 07/19/2017, 05/09/2017, Additional history exists [...] this encounter Medical Devices Implanted Type Area Health Education Assistant Device Identifier Shelf Expiration Date Model / Serial / Lot Tube Flex 3.0x2.5 [id number] - [id number] Implanted:Qty: 1 on 12/07/2014 by Juancarlos Trinidad MD at [facility] Left: Finger LANDON : ORTHOPAEDICS 11/18/2015 [id number] / / [id number] documented as of this encounter Visit Diagnoses [...] patient have Health Care Power of Director Of Digital Technology? No Healthcare Agents on File Name Relationship Healthcare Agent Relationship Communication Estrella Seth Other - (no specific identity) Health Care Power of Director Of Digital Technology Care Teams Dopeman Relationship Specialty Start Date End Date Roberto Askew MD [address] [place] [address] PCP - General Internal Medicine 04/10/20 documented as of this encounter
--- OUTSIDE RECORDS SUMMARY | 2023-08-22 22:15 | External Medical Summary | Summary of Care ---
Author Name Unknown Organization [facility] Address [address] [place] [address] Phone [phone] Care Team Providers Care Regional Clinical Research Associate Name Role Phone Roberto Askew MD Primary Care Provider + Reason for Visit * Reason Onset Date Comments Med Request 04/05/2023 Encounter Details Date Type Department Care Team Description 04/05/2023 Telephone General Internal Medicine [facility] [place] [address] [facility] [place] [address] Roberto Askew MD [address] [place] [address] Med Request Allergies Active Allergy Reactions Severity [...] as of this encounter (statuses as of 04/05/2023) Medications Medication Sig Dispensed Refills Start Date [...] day as needed. 0 Active nystatin (NYSTOP) 529047 UNIT/GM powderIndications:Cu taneous candidiasis Apply topically to [...] BY MOUTH DAILY. 30 Cap 11 1 Active Additional Information Patient taking differently: 0.8 [...] MG Oral TabletIndications:Co ronary artery disease involving chickahominy indians-eastern division coronary artery of chickahominy indians-eastern division heart without angina pectoris Take by mouth [...] NEEDED NAUSEA 20 Tablet 1 2 Active Atorvastatin Calcium 80 MG Oral Tablet (Lipitor) Take by mouth 1 Tablet in the morning. To take in the afternoon.. 30 Tablet 1 2 Active Ipratropium-Albutero l 0.5-2.5 [...] in the morning. Follow taper [facility] from [facility]. 0 3 Active guaiFENesin-Codeine 100-10 [...] MG Oral TabletIndications:Co ronary artery disease involving chickahominy indians-eastern division coronary artery of chickahominy indians-eastern division heart without angina pectoris Take 1 Tablet by mouth in the morning. In the morning.. 90 Tablet 1 3 Active Metoprolol Succinate ER 50 MG Oral Tablet Extended Release 24 Hour (toPROL XL)Indications:Coron uziel artery disease involving chickahominy indians-eastern division coronary artery of chickahominy indians-eastern division heart without angina pectoris TAKE 1 & 1/2 TABLETS by mouth 2 TIMES A DAY 270 Tablet 1 3 Active Warfarin Sodium 5 MG Oral Tablet (Coumadin)Indication s:History of pulmonary embolism TAKE 1/2 TO 1 TABLET EVERY DAY DIRECTED BY COUMADIN CLINIC. 90 Tablet 3 3 Active Isosorbide Dinitrate 30 MG Oral TabletIndications:Co ronary artery disease involving chickahominy indians-eastern division coronary artery of chickahominy indians-eastern division heart without angina pectoris TAKE ONE TABLET BY MOUTH EVERY MORNING 90 Tablet 1 3 04/05/20 23 Discontinu ed(Refill) Metoprolol Succinate ER 50 MG Oral Tablet Extended Release 24 Hour (toPROL XL)Indications:Coron uziel artery disease involving chickahominy indians-eastern division coronary artery of chickahominy indians-eastern division heart without angina pectoris TAKE 1 & 1/2 TABLETS by mouth 2 TIMES A DAY 270 Tablet 2 3 04/05/20 23 Discontinu ed(Refill) documented as of this encounter (statuses as of 04/05/2023) Active Problems Problem Noted Date Bandemia 10/24/2021 [...] subarachnoid hemorrhage 10/04 Coronary artery disease involving chickahominy indians-eastern division heart without angina pectoris 10/04/2020 COPD, group [...] as of this encounter (statuses as of 04/05/2023) Resolved Problems Problem Noted Date Resolved Date [...] Morbid obesity with BMI of 45.0-49.9, adult 05/1 01/2018 10/04/2020 Body mass index (BMI) of 40.0 to [...] Calculus of kidney 08/20/2015 02/01/2018 Overview: right, [place] CT Vitamin D deficiency 01/31/2015 02/01/2018 Body [...] as of this encounter (statuses as of 04/05/2023) Immunizations Name Administration Dates Next Due COVID-19 mRNA, LNP-s, No Pre serve, 2-Dose Series ([employer]) 01/02/2021,12/05/2020 DTP Vaccine 07/19/2017,04/03/2014 Hepatitis B, 20+ [...] encounter Miscellaneous Notes * Telephone Encounter - Shanti Ann CPhT - 04/05/2023 4:57 PM EDT Please reroute Rx to [id number] [address] [facility]. Pending Prescriptions: Disp Refills Isosorbide Dinitrate 30 MG Oral Tablet 90 Tab*1 Sig: Take 1 Tablet by mouth in the morning. In the morning.. Metoprolol Succinate ER 50 MG Oral Tablet*270 Ta*2 Sig: TAKE 1 & 1/2 TABLETS by mouth 2 TIMES A DAY Last Visit: 08/10/2022 (in office), 12/10/2021 (telemedicine) Visit date not found If no future appointments scheduled, and last appointment is greater than a year ago, please schedule patient for a follow-up appointment Last date the medication was ordered: 12/04/2021 Patient Phone Numbers Labs: Lab Results Component [...] Date Type Specialty Care Team Description 04/06/2023 Laboratory Laboratory Processing [facility] Mobile Home Draw [address] [facility] [address] 04/07/2023 [facility] [address] [facility] [place] [address] Health Maintenance Due Date Last Done Comments DISCUSS TOBACCO CESSATION (REFER TO SMARTSET #0034) 1970 HIV Screening 1985 Pneumococcal Vaccine: Pediatrics (0 to 5 Years) and At-Risk Patients (6 to 64 Years) (2 - PCV) 05/22/2010 05/22/2009 Cologuard 2015 Fecal Occult Blood Test 2015 Sigmoidoscopy 2015 *ADVANCE DIRECTIVE NOT ON FILE 02/03/2020 LUNG CANCER SCREENING - USE SMARTSET [id number] 2020 02/10/2019, 07/19/2017, 05/09/2017, Additional history exists [...] this encounter Medical Devices Implanted Type Area Music Librarian Device Identifier Shelf Expiration Date Model / Serial / Lot Tube Flex 3.0x2.5 [id number] - [id number] Implanted:Qty: 1 on 12/07/2014 by Juancarlos Trinidad MD at [facility] Left: Finger [employer] : ORTHOPAEDICS 11/18/2015 [id number] / / [id number] documented as of this encounter Visit Diagnoses Diagnosis Coronary artery disease involving chickahominy indians-eastern division coronary artery of chickahominy indians-eastern division heart without angina pectoris documented in this [...] the patient have Health Care Power of Blueprint Assembler? No Healthcare Agents on File Name Relationship Healthcare Agent Relationship Communication Estrella Seth Other - (no specific identity) Health Care Power of Blueprint Assembler Care Teams Regional Clinical Research Associate Relationship Specialty Start Date End Date Roberto Askew MD [address] [place] [address], [place] [address] PCP - General Internal Medicine 04/10/20 documented as of this encounter
--- OUTSIDE RECORDS SUMMARY | 2023-08-22 22:15 | External Medical Summary | Summary of Care ---
Author Name Unknown Organization [facility] Address [address] [place] [address] Phone [phone] Care Team Providers Care Cigarette Roller Name Role Phone Roberto Askew MD Primary Care Provider + Reason for Visit * Reason Onset Date Comments Health Maintenance 03/18/2023 Encounter Details Date Type Department Care Team Description 03/18/2023 Telephone General Internal Medicine [facility] [place] [address] [place] [address] Roberto Askew MD [address] [place] [address] Health Maintenance Allergies Active Allergy Reactions Severity Noted Date [...] as of this encounter (statuses as of 03/18/2023) Medications Medication Sig Dispensed Refills Start Date [...] day as needed. 0 Active nystatin (NYSTOP) 345350 UNIT/GM powderIndications:Cut aneous candidiasis Apply topically to [...] C, by GOLD 2017 classification ([facility]),COPD, group D, by GOLD 2017 classification ([facility]) USE 2 PUFFS BY MOUTH EVERY 4 HOURS NEEDED SHORT OF BREATH 6.7 g 5 11/24/2021 Active Magnesium Oxide 400 (241.3 Mg) MG Oral TabletIndications:Cor onary artery disease involving shawnee coronary artery of shawnee heart without angina pectoris Take by mouth [...] goal of less than 8.0% ([facility]) Use as directed. 1 Kit 0 10/30/2022 Active Accu-Chek Guide In Vitro Strip (Glucose Blood)Indications:Typ e 2 diabetes mellitus with hemoglobin A1c goal of less than 8.0% ([facility]) Use to check sugars 3 times a day 100 Strip 1 10/30/2022 Active Accu-Chek Softclix LancetsIndications:Ty pe 2 diabetes mellitus with hemoglobin A1c goal of less than 8.0% ([facility]) Use to check sugars 3 [...] MG Oral TabletIndications:Cor onary artery disease involving shawnee coronary artery of shawnee heart without angina pectoris TAKE ONE TABLET [...] Hour (toPROL XL)Indications:Harman ry artery disease involving shawnee coronary artery of shawnee heart without angina pectoris TAKE 1 & [...] the morning. [facility] 0 12/25/2022 Active guaiFENesin-Codeine 100-10 MG/5ML Oral Syrup (Robitussin AC) Take 5 mL by mouth 3 times a day as needed for Cough. 120 mL 0 12/25/2022 Active Benzonatate 100 MG Oral Capsule (Tessalon Perles) TAKEONE CAPSULE BY MOUTH EVERY MORNING, ONE AT NOON, AND ONE EVERY EVENING, FOR COUGH. 20 Capsule 0 12/30/2022 Active documented as of this encounter (statuses as of 03/18/2023) Active Problems Problem Noted Date Bandemia 10/24/2021 [...] subarachnoid hemorrhage 10/04 Coronary artery disease involving shawnee heart without angina pectoris 10/04/2020 COPD, group [...] as of this encounter (statuses as of 03/18/2023) Resolved Problems Problem Noted Date Resolved Date [...] Calculus of kidney 08/20/2015 02/01/2018 Overview: right, [place] Vitamin D deficiency 01/31/2015 02/01/2018 Body [...] as of this encounter (statuses as of 03/18/2023) Immunizations Name Administration Dates Next Due COVID-19 mRNA, LNP-s, No Pre serve, 2-Dose Series (Phizzle) 01/02/2021,12/05/2020 DTP Vaccine 07/19/2017,04/03/2014 Hepatitis B, 20+ [...] encounter Miscellaneous Notes * Telephone Encounter - Carmencita Rdz LPN - 03/18/2023 1:27 PM EDT Care Gaps Comprehensive Care Outreach Last Office/Telemedicine Visit: 08/10/2022 (in office), 12/10/2021 (telemedicine) Next Office Visit: Visit date not found Hemoglobin AIC Results: Lab Results Component Value Date/Time HEMOGLOBIN A1C - [facility] 6.9 (H) 03/19/2022 06:48 AM HEMOGLOBIN A1C - [facility] 7.6 (H) 12/16/2021 08:17 AM HEMOGLOBIN A1C - [facility] 6.8 (H) 06/05/2021 08:29 AM HEMOGLOBIN A1C - [facility] 8.8 (H) 10/08/2020 08:05 AM HEMOGLOBIN A1C - [facility] 7.1 (H) 04/10/2020 01:17 PM HEMOGLOBIN A1C - [facility] 7.9 (H) 11/19/2019 05:38 AM Reviewed Health Maintenance below: Health Maintenance Topic Date Due DISCUSS TOBACCO CESSATION (REFER TO SMARTSET #5960) Never done HIV Screening Never done Pneumococcal Vaccine: Pediatrics (0 to 5 Years) and At-Risk Patients (6 to 64 Years) (2 - PCV) 05/22/2010 *ADVANCE DIRECTIVE NOT ON FILE Never done LUNG CANCER SCREENING - USE SMARTSET 13216 2020 Zoster Vaccines (1 of 2) Never done Hepatitis B (3 of 3 - 19+ 3-dose series) 10/11/2020 DIABETES-FOOT EXAM 12/13/2020 COVID-19 Vaccine (3 - Pfizer series) 02/27/2021 Albumin/Creatinine Ratio 04/10/2021 Depression Screening, Annual for Pts 12 and Over 05/01/2021 DIABETES-EYE EXAM 11/19/2021 HbA1c 09/18/2022 Influenza Vaccine (FLU shot) (Season Ended) 2023 O2 ASSESSMENT COMPLETED IN PAST YEAR FOR COPD 08/10/2023 ov Foot Urine Eye Labs Hospitalized? Care Gap Outreach Action Taken: unable to reach documented in this encounter Plan of Treatment [...] 02/03/2020 LUNG CANCER SCREENING - USE SMARTSET 49266 2020 02/10/2019, 07/19/2017, 05/09/2017, Additional history exists [...] Additional history exists Influenza Vaccine (FLU shot) (Season Ended) 2023 08/26/2013 O2 ASSESSMENT COMPLETED IN PAST [...] this encounter Medical Devices Implanted Type Area Golf Superintendent Device Identifier Shelf Expiration Date Model / Serial / Lot Tube Flex 3.0x2.5 [id number] - [id number] Implanted:Qty: 1 on 12/07/2014 by Juancarlos Trinidad MD at [facility] Left: Finger LANDON : ORTHOPAEDICS 11/18/2015 [id number] / / [id number] documented as of this encounter Advance Directives [...] the patient have Health Care Power of Hogshead Wrecker? No Healthcare Agents on File Name Relationship Healthcare Agent Relationship Communication Estrella Seth Other - (no specific identity) Health Care Power of Hogshead Wrecker Care Teams Cigarette Roller Relationship Specialty Start Date End Date Roberto Askew MD [address] [place] [address], [place] [address] PCP - General Internal Medicine 04/10/20 documented as of this encounter
--- OUTSIDE RECORDS SUMMARY | 2023-08-22 22:15 | External Medical Summary | Summary of Care ---
Author Name Unknown Organization [facility] Address [address] [place] [address] Phone [phone] Care Team Providers Care Picker Name Role Phone Roberto Askew MD Primary Care Provider + Reason for Visit * Reason Onset Date Comments Encounter Created in Error 03/18/2023 Encounter Details Date Type Department Care Team Description 03/18/2023 Telephone General Internal Medicine [facility] [address] [facility] [place] [address] Roberto Askew MD [address] [place] [address] Encounter Created in Error Allergies Active Allergy Reactions Severity Noted Date [...] day as needed. 0 Active nystatin (NYSTOP) 426912 UNIT/GM powderIndications:Cut aneous candidiasis Apply topically to [...] MG Oral TabletIndications:Cor onary artery disease involving houlton coronary artery of houlton heart without angina pectoris Take by mouth [...] MG Oral TabletIndications:Cor onary artery disease involving houlton coronary artery of houlton heart without angina pectoris TAKE ONE TABLET [...] Hour (toPROL XL)Indications:Harman ry artery disease involving houlton coronary artery of houlton heart without angina pectoris TAKE 1 & [...] in the morning. Follow taper instructions from [facility]. 0 12/25/2022 Active guaiFENesin-Codeine 100-10 MG/5ML [...] subarachnoid hemorrhage 10/04 Coronary artery disease involving houlton heart without angina pectoris 10/04/2020 COPD, group [...] Calculus of kidney 08/20/2015 02/01/2018 Overview: right, [place] CT Vitamin D deficiency 01/31/2015 02/01/2018 Body [...] mRNA, LNP-s, No Pre serve, 2-Dose Series (Seasonal Kids [employer]) 01/02/2021,12/05/2020 DTP Vaccine 07/19/2017,04/03/2014 Hepatitis B, 20+ [...] Miscellaneous Notes * Telephone Encounter - DARIA Jacobo - 03/18/2023 3:28 PM EDT error documented in this encounter Plan of Treatment [...] 02/03/2020 LUNG CANCER SCREENING - USE SMARTSET 51026 2020 02/10/2019, 07/19/2017, 05/09/2017, Additional history exists [...] this encounter Medical Devices Implanted Type Area Account Classification Clerk Device Identifier Shelf Expiration Date Model / Serial / Lot Tube Flex 3.0x2.5 [id number] - [id number] Implanted:Qty: 1 on 12/07/2014 by Juancarlos Trinidad MD at [facility] Left: Finger LANDON : ORTHOPAEDICS 11/18/2015 [id number] / / [id number] documented as of this encounter Advance Directives [...] the patient have Health Care Power of Windows Server Engineer? No Healthcare Agents on File Name Relationship Healthcare Agent Relationship Communication Estrella Seth Other - (no specific identity) Health Care Power of Windows Server Engineer Care Teams Picker Relationship Specialty Start Date End Date Roberto Askew MD [address] [place] [id number] PCP - General Internal Medicine 04/10/20 documented as of this encounter
--- OUTSIDE RECORDS SUMMARY | 2023-08-22 22:15 | External Medical Summary | Summary of Care ---
Author Name Unknown Organization [facility] Address [address] [place] [address] Phone [phone] Care Team Providers Care Funeral Home Makeup Artist Name Role Phone Roberto Askew MD Primary Care Provider + Reason for Visit * Reason Comments Status Check Dosage Adjustment Via Phone (anticoag Cl inic) Encounter Details Date Type Department Care Team Description 03/11/2023 Anticoagulation Pharmacy Call Center [phone] [place] [address] [facility] [address] [facility] [place] [address] History of pulmonary embolism* Allergies Active Allergy [...] as of this encounter (statuses as of 03/11/2023) Medications Medication Sig Dispensed Refills Start Date [...] day as needed. 0 Active nystatin (NYSTOP) 991300 UNIT/GM powderIndications:Cut aneous candidiasis Apply topically to [...] MG Oral TabletIndications:Cor onary artery disease involving eek coronary artery of eek heart without angina pectoris Take by mouth [...] MG Oral TabletIndications:Cor onary artery disease involving eek coronary artery of eek heart without angina pectoris TAKE ONE TABLET [...] Hour (toPROL XL)Indications:Harman ry artery disease involving eek coronary artery of eek heart without angina pectoris TAKE 1 & [...] morning. Follow taper instructions from [facility]. 0 12/25/2022 Active guaiFENesin-Codeine 100-10 [...] as of this encounter (statuses as of 03/11/2023) Active Problems Problem Noted Date Bandemia 10/24/2021 [...] 01/24/2021 Opioid dependence, uncomplicated 021 History of [place] (myocardial infarction) Morbid obesity with BMI of 50.0-59.9, ad ult 10/04/2020 History of subdural hematoma 10/04/2020 Gastroesophageal reflux disease without esophagitis 10/04/2020 History of subarachnoid hemorrhage 10/04 Coronary artery disease involving eek heart without angina pectoris 10/04/2020 COPD, group [...] as of this encounter (statuses as of 03/11/2023) Resolved Problems Problem Noted Date Resolved Date [...] Calculus of kidney 08/20/2015 02/01/2018 Overview: right, [place] CT Vitamin D deficiency 01/31/2015 02/01/2018 Body [...] as of this encounter (statuses as of 03/11/2023) Immunizations Name Administration Dates Next Due COVID-19 mRNA, LNP-s, No Pre serve, 2-Dose Series ([employer]) 01/02/2021,12/05/2020 DTP Vaccine 07/19/2017,04/03/2014 Hepatitis B, 20+ [...] this encounter Progress Notes * Keren Sanchez, [facility] - 03/11/2023 12:29 PM EDT Medication Therapy Disease Management - Anticoagulation Patient: Stanton Milner : 1970 Current Warfarin Dose As of 03/11/2023 Warfarin maintenance plan: 2.5 mg (5 mg x 0.5) every Tue, Micki; 5 mg (5 mg x 1) all other days Patient-Reported Symptoms: Pt discharged from [facility] to home. Pt discharged on same doseof Warfarin. INR Result As of 03/11/2023 INR goal: 2.0-3.0 INR used for dosing: No new INR was available at the time of this encounter. Warfarin Plan As of 03/11/2023 Full warfarin instructions: 2.5 mg every Tue, Micki; 5 mg all other days Next INR check: 03/15/2023 Additional Dosing Information: Description GML(MTuTh) - pt prefers Tues GML at this time Repeat PT/INR in 4 day(s) Weekly dose: not changed Keren Sanchez [facility] Clinical Pharmacist 03/11/2023, 12:29 PM * Lisa Loya CPhT - 03/11/2023 10:57 AM EDT Telepharm [facility] Up [facility] [phone] Called Facility spoke to Nurse Mc . Patient has been discharged from facility as of 03/11/23 . Pharmacist to follow up with patient/facility. Additional Information Provided by facility:Patient being discharged this afternoon. Most recent INR drawn on 03/11 result was 2.53. Patient currently taking 2.5mg T,Th 5mg all other days. Thank you, Lisa Loya CPhT 03/11/2023 10:57 AM documented in this encounter Plan of Treatment Upcoming Encounters Date Type Specialty Care Team Description 03/17/2023 Office Visit Internal Medicine Roberto Askew MD [address] [place] [address] Health Maintenance Due Date Last Done Comments DISCUSS TOBACCO CESSATION (REFER TO SMARTSET #0920) 1970 HIV Screening 1985 Pneumococcal Vaccine: Pediatrics (0 to 5 Years) and At-Risk Patients (6 to 64 Years) (2 - PCV) 05/22/2010 05/22/2009 Cologuard 2015 Fecal Occult Blood Test 2015 Sigmoidoscopy 2015 *ADVANCE DIRECTIVE NOT ON FILE 02/03/2020 LUNG CANCER SCREENING - USE SMARTSET 63814 2020 02/10/2019, 07/19/2017, 05/09/2017, Additional history exists [...] this encounter Medical Devices Implanted Type Area Teletype Installer Device Identifier Shelf Expiration Date Model / Serial / Lot Tube Flex 3.0x2.5 [id number] - [id number] Implanted:Qty: 1 on 12/07/2014 by Juancarlos Trinidad MD at [facility] Left: Finger [employer]ANDON : ORTHOPAEDICS 11/18/2015 [id number] / / [id number] documented as of this encounter Visit Diagnoses [...] the patient have Health Care Power of Grant Coordinator? No Healthcare Agents on File Name Relationship Healthcare Agent Relationship Communication Estrella Seth Other - (no specific identity) Health Care Power of Grant Coordinator Care Teams Funeral Home Makeup Artist Relationship Specialty Start Date End Date Roberto Askew MD [address] [place] [address] PCP - General Internal Medicine 04/10/20 documented as of this encounter
--- OUTSIDE RECORDS SUMMARY | 2023-08-22 22:15 | External Medical Summary ---
Author Name Unknown Address Unknown Organization K0G[facility] [address] [place] [address] Laboratory Report Ordering Provider Test Date Status ABADOMENICALIONEL 03/30/2023 07:59:00 Final Standing order for pt/inr. < br/>Please draw pt/inr every 1 to 4 weeks as requested
Results to [facility]

Warfarin Therapy
INR: 2.0-3.0 conventional anticoagulation
INR: 2.5-3.5 high intensity anticoagulation Observation Date Value Abnormality Reference (Units ) Status PT 03/30/2023 07:59:00 32.9 Above high normal 11 .6-15.2 (seconds) Final INR 03/30/2023 07:59:00 3.2 Above high normal 0. 8-1.2 Final Performing Location [facility] [address] [place] [address]
--- OUTSIDE RECORDS SUMMARY | 2023-08-22 22:16 | External Medical Summary | Summary of Care ---
Author Name Unknown Organization [facility] Address [address] [place] [address] Phone [phone] Care Team Providers Care Transportation Inspector Name Role Phone Roberto Askew MD Primary Care Provider + Reason for Visit * Reason Onset Date Comments Other 03/01/2023 Encounter Details Date Type Department Care Team Description 03/01/2023 [facility] [phone] [address] [facility] [address] [place] [address] Other Allergies Active Allergy Reactions Severity Noted [...] as of this encounter (statuses as of 03/01/2023) Medications Medication Sig Dispensed Refills Start Date [...] day as needed. 0 Active nystatin (NYSTOP) 182497 UNIT/GM powderIndications:Cut aneous candidiasis Apply topically to [...] group C, by GOLD 2017 classification ([facility]),COPD, group D, by GOLD 2017 classification ([facility]) USE 2 PUFFS BY MOUTH EVERY [...] A1c goal of less than 8.0% ([facility]) Use as directed. 1 Kit 0 10/30/2022 Active Accu-Chek Guide In Vitro Strip (Glucose Blood)Indications:Typ e 2 diabetes mellitus with hemoglobin A1c goal of less than 8.0% ([facility]) Use to check sugars 3 times a day 100 Strip 1 10/30/2022 Active Accu-Chek Softclix LancetsIndications:Ty pe 2 diabetes mellitus with hemoglobin A1c goal of less than 8.0% ([facility]) Use to check sugars 3 times [...] lower b[place] heart without angina pectoris TAKE ONE TABLET [...] in the morning. Follow taper instructions from [facility]. 0 12/25/2022 Active guaiFENesin-Codeine 100-10 [...] as of this encounter (statuses as of 03/01/2023) Active Problems Problem Noted Date Bandemia 10/24/2021 [...] 01/24/2021 Opioid dependence, uncomplicated 021 History of [place] (myocardial infarction) Morbid obesity with BMI of [...] as of this encounter (statuses as of 03/01/2023) Resolved Problems Problem Noted Date Resolved Date [...] Calculus of kidney 08/20/2015 02/01/2018 Overview: right, [place] CT Vitamin D deficiency 01/31/2015 02/01/2018 Body [...] as of this encounter (statuses as of 03/01/2023) Immunizations Name Administration Dates Next Due COVID-19 mRNA, LNP-s, No Pre serve, 2-Dose Series (PROnoise) 01/02/2021,12/05/2020 DTP Vaccine 07/19/2017,04/03/2014 Hepatitis B, 20+ [...] encounter Miscellaneous Notes * Telephone Encounter - Alexandra Carrillo RPh - 03/01/2023 9:36 AM EDT Noted- thank you; [facility] to continue weekly follow-up efforts regarding plans for discharge. Thanks, Alexandra Carrillo PharmD Clinical Pharmacist [facility] ([facility]) (Formerly Telepharmacy) [phone] 03/01/2023 9:36 AM * Telephone Encounter - ARTEM Varela - 03/01/2023 9:29 AM EDT Caller's name: Jesusita [facility] Preferred call back number(OFFICE NUMBER FOR ): [phone] ext [phone] Reason for call: Jesusita is calling in stating there is a physician and FISHING TOOL OPERATOR are managing INR for pt. FISHING TOOL OPERATOR this week is Rocío Friedman Unsure of the Attending Physician this week. As of last Wednesday Attending Physician was Carlos Tolentino Please advise. Thank you, Desiree Álvarez Master Deputy Sheriff [address] Security 03/01/2023, 9:29 AM documented in this encounter Plan of Treatment Upcoming Encounters Date Type Specialty Care Team Description 03/04/20[facility] [address] [facility] [place] [address] 03/09/2023 Office Visit Cardiology Jacob Penn, DO [address] [place] [address] Health Maintenance Due Date Last Done Comments DISCUSS TOBACCO CESSATION (REFER TO SMARTSET #1510) 1970 HIV Screening 1985 Pneumococcal Vaccine: Pediatrics (0 to 5 Years) and At-Risk Patients (6 to 64 Years) (2 - PCV) 05/22/2010 05/22/2009 Cologuard 2015 Fecal Occult Blood Test 2015 Sigmoidoscopy 2015 *ADVANCE DIRECTIVE NOT ON FILE 02/03/2020 LUNG CANCER SCREENING - USE SMARTSET 11201 2020 02/10/2019, 07/19/2017, 05/09/2017, Additional history exists [...] this encounter Medical Devices Implanted Type Area Log Chain Feeder Device Identifier Shelf Expiration Date Model / Serial / Lot Tube Flex 3.0x2.5 [id number] - [id number] Implanted:Qty: 1 on 12/07/2014 by Juancarlos Trinidad MD at [facility] Left: Finger [employer]ANDON : ORTHOPAEDICS 11/18/2015 [id number] / / [id number] documented as of this encounter Advance Directives [...] patient have Health Care Power of Bilingual Teacher? No Healthcare Agents on File Name Relationship Healthcare Agent Relationship Communication Estrella Seth Other - (no specific identity) Health Care Power of Bilingual Teacher Care Teams Transportation Inspector Relationship Specialty Start Date End Date Roberto Askew MD [address] [place] [id number] PCP - General Internal Medicine 04/10/20 documented as of this encounter
--- OUTSIDE RECORDS SUMMARY | 2023-08-22 22:16 | External Medical Summary | Summary of Care ---
Author Name Unknown Organization [facility] Address [address] [place] [address] Phone [phone] Care Team Providers Care Hvac Specialist Name Role Phone Roberto Askew MD Primary Care Provider + Reason for Visit * Reason Comments Status Check Encounter Details Date Type Department Care Team Description 03/04/2023 Anticoagulation Pharmacy Call Center [address] [place] [address] [facility] [address] [place] [address] History of pulmonary embolism* Allergies Active Allergy [...] as of this encounter (statuses as of 03/04/2023) Medications Medication Sig Dispensed Refills Start Date [...] day as needed. 0 Active nystatin (NYSTOP) 720472 UNIT/GM powderIndications:Cut aneous candidiasis Apply topically to [...] C, by GOLD 2017 classification ([facility]),COPD, group D, by GOLD 2017 classification ([facility]) USE 2 PUFFS BY MOUTH EVERY 4 HOURS NEEDED SHORT OF BREATH 6.7 g 5 11/24/2021 Active Magnesium Oxide 400 (241.3 Mg) MG Oral TabletIndications:Cor onary artery disease involving asa'[place] coronary artery of asa'[place] heart without angina pectoris Take by mouth [...] goal of less than 8.0% ([facility]) Use as directed. 1 Kit 0 10/30/2022 Active Accu-Chek Guide In Vitro Strip (Glucose Blood)Indications:Typ e 2 diabetes mellitus with hemoglobin A1c goal of less than 8.0% ([facility]) Use to check sugars 3 times a day 100 Strip 1 10/30/2022 Active Accu-Chek Softclix LancetsIndications:Ty pe 2 diabetes mellitus with hemoglobin A1c goal of less than 8.0% ([facility]) Use to check sugars 3 [...] MG Oral TabletIndications:Cor onary artery disease involving asa'[place] coronary artery of asa'[place] heart without angina pectoris TAKE ONE TABLET [...] Hour (toPROL XL)Indications:Harman ry artery disease involving asa'carsarmiut coronary artery of asa'carsarmiut heart without angina pectoris TAKE 1 & [...] as of this encounter (statuses as of 03/04/2023) Active Problems Problem Noted Date Bandemia 10/24/2021 [...] subarachnoid hemorrhage 10/04 Coronary artery disease involving asa'[place]armiut heart without angina pectoris 10/04/2020 COPD, group [...] as of this encounter (statuses as of 03/04/2023) Resolved Problems Problem Noted Date Resolved Date [...] Calculus of kidney 08/20/2015 02/01/2018 Overview: right, [place] CT Vitamin D deficiency 01/31/2015 02/01/2018 Body [...] as of this encounter (statuses as of 03/04/2023) Immunizations Name Administration Dates Next Due COVID-19 mRNA, LNP-s, No Pre serve, 2-Dose Series ([employer]) 01/02/2021,12/05/2020 DTP Vaccine 07/19/2017,04/03/2014 Hepatitis B, [...] Progress Notes * Lisa Loya CPhT - 03/04/2023 1:03 PM EDT [facility] [phone] Called Facility spoke to Nurse Mc . Confirmed patient remains admitted to facility at this time, coumadin is managed in house by facility provider. No Discharge plans in place at this time, [facility] will[facility] to follow up for discharge. Follow up scheduled in 1 week.. Additional Information Provided by facility: Anticipating discharge by 03/11 Thank you, Lisa Loya CPhT 03/04/2023 1:03 PM documented in this encounter Plan of Treatment Upcoming Encounters Date Type Specialty Care Team Description 03/11/2023 [facility] [address] [facility] [place] [facility] Health Maintenance Due Date Last Done Comments DISCUSS TOBACCO CESSATION (REFER TO SMARTSET #0280) 1970 HIV Screening 1985 Pneumococcal Vaccine: Pediatrics (0 to 5 Years) and At-Risk Patients (6 to 64 Years) (2 - PCV) 05/22/2010 05/22/2009 Cologuard 2015 Fecal Occult Blood Test 2015 Sigmoidoscopy 2015 *ADVANCE DIRECTIVE NOT ON FILE 02/03/2020 LUNG CANCER SCREENING - USE SMARTSET [id number] 2020 02/10/2019, 07/19/2017, 05/09/2017, Additional history exists [...] this encounter Medical Devices Implanted Type Area Protection Chief Industrial Plant Device Identifier Shelf Expiration Date Model / Serial / Lot Tube Flex 3.0x2.5 [id number] - [id number] Implanted:Qty: 1 on 12/07/2014 by Juancarlos Trinidad MD at [facility] Left: Finger [employer] : ORTHOPAEDICS 11/18/2015 [id number] / / [id number] documented as of this encounter Visit Diagnoses [...] the patient have Health Care Power of Parts Clerk Plant Maintenance? No Healthcare Agents on File Name Relationship Healthcare Agent Relationship Communication Estrella Seth Other - (no specific identity) Health Care Power of Parts Clerk Plant Maintenance Care Teams Hvac Specialist Relationship Specialty Start Date End Date Roberto Asekw MD [address] [place] [address], [place] [address] PCP - General Internal Medicine 04/10/20 documented as of this encounter
--- OUTSIDE RECORDS SUMMARY | 2023-08-22 22:16 | External Medical Summary | Summary of Care ---
Author Name Unknown Organization [facility] Address [address] [place] [address] Phone [phone] Care Team Providers Care Investment Underwriter Name Role Phone Roberto Askew MD Primary Care Provider + Reason for Visit * Reason Comments Dosage Adjustment Via Phone (anticoag Cl inic) Encounter Details Date Type Department Care Team Description 02/24/2023 Anticoagulation Pharmacy Call Center [address] [place] [address] [facility] [address] [facility] [place] [address] History of pulmonary embolism* Allergies Active Allergy [...] as of this encounter (statuses as of 02/24/2023) Medications Medication Sig Dispensed Refills Start Date [...] day as needed. 0 Active nystatin (NYSTOP) 219658 UNIT/GM powderIndications:Cut aneous candidiasis Apply topically to [...] group C, by GOLD 2017 classification ([facility]),COPD, group D, by GOLD 2017 classification ([facility]) USE 2 PUFFS BY MOUTH EVERY 4 HOURS NEEDED SHORT OF BREATH 6.7 g 5 11/24/2021 Active Magnesium Oxide 400 (241.3 Mg) MG Oral TabletIndications:Cor onary artery disease involving [place] coronary artery of [place] heart without angina pectoris Take by mouth [...] A1c goal of less than 8.0% ([facility]) Use as directed. 1 Kit 0 10/30/2022 Active Accu-Chek Guide In Vitro Strip (Glucose Blood)Indications:Typ e 2 diabetes mellitus with hemoglobin A1c goal of less than 8.0% ([facility]) Use to check sugars 3 times a day 100 Strip 1 10/30/2022 Active Accu-Chek Softclix LancetsIndications:Ty pe 2 diabetes mellitus with hemoglobin A1c goal of less than 8.0% ([facility]) Use to check sugars [...] MG Oral TabletIndications:Cor onary artery disease involving [place] coronary artery of [place] heart without angina pectoris TAKE ONE TABLET [...] Hour (toPROL XL)Indications:Harman ry artery disease involving [place] coronary artery of [place] heart without angina pectoris TAKE 1 & [...] as of this encounter (statuses as of 02/24/2023) Active Problems Problem Noted Date Bandemia 10/24/2021 [...] subarachnoid hemorrhage 10/04 Coronary artery disease involving [place] heart without angina pectoris 10/04/2020 COPD, group [...] as of this encounter (statuses as of 02/24/2023) Resolved Problems Problem Noted Date Resolved Date [...] Calculus of kidney 08/20/2015 02/01/2018 Overview: right, [place] CT Vitamin D deficiency 01/31/2015 02/01/2018 Body [...] as of this encounter (statuses as of 02/24/2023) Immunizations Name Administration Dates Next Due COVID-19 mRNA, LNP-s, No Pre serve, 2-Dose Series ([employer]) 01/02/2021,12/05/2020 DTP Vaccine 07/19/2017,04/03/2014 Hepatitis B, 20+ [...] Progress Notes * Keren Sanchez RPh - 02/24/2023 10:11 AM EDT Pt remains admitted to [facility]. Case Management Note: Factory Assembler faxing referrals to [place] and [facility]. Will continue following up with referred facilities [facility] will continue to follow up for discharge plans. Keren Sanchez Rph, Pharm.D. Clinical Pharmacist Centralized Clinical Pharmacy Services (CCPS) (formally Telepharmacy) [address] [facility], 4th Floor [address] [place] [address] 02/24/2023,10:14 AM documented in this encounter Plan of Treatment Upcoming Encounters Date Type Specialty Care Team Description 03/09/2023 Office Visit Cardiology Jacob Penn O, DO [address] [place] [address] Health Maintenance Due Date Last Done Comments DISCUSS TOBACCO CESSATION (REFER TO SMARTSET #2666) 1970 HIV Screening 1985 Pneumococcal Vaccine: Pediatrics (0 to 5 Years) and At-Risk Patients (6 to 64 Years) (2 - PCV) 05/22/2010 05/22/2009 Cologuard 2015 Fecal Occult Blood Test 2015 Sigmoidoscopy 2015 *ADVANCE DIRECTIVE NOT ON FILE 02/03/2020 LUNG CANCER SCREENING - USE SMARTSET [id number] 2020 02/10/2019, 07/19/2017, 05/09/2017, Additional history exists Zoster Vaccines (1 of 2) 2020 Hepatitis B (3 of 3 - 19+ 3-dose series) 11/05/2020 06/05/2020, 04/10/2020 DIABETES-FOOT EXAM 12/13/2020 12/14/2019, 1 11/03/2014, 09/03/2014 COVID-19 Vaccine (3 - Booster for Pfizer series) 02/27/2021 01/02/2021, 12/05/2020 Albumin/Creatinine Ratio [...] this encounter Medical Devices Implanted Type Area Aircraft Engine Mechanic Overhaul Device Identifier Shelf Expiration Date Model / Serial / Lot Tube Flex 3.0x2.5 [id number] - [id number] Implanted:Qty: 1 on 12/07/2014 by Juancarlos Trinidad MD at [facility] Left: Finger [employer] : ORTHOPAEDICS 11/18/2015 [id number] / / [id number] documented as of this encounter Visit Diagnoses [...] the patient have Health Care Power of Warp Yarn Sorter? No Healthcare Agents on File Name Relationship Healthcare Agent Relationship Communication Estrella Seth Other - (no specific identity) Health Care Power of Warp Yarn Sorter Care Teams Investment Underwriter Relationship Specialty Start Date End Date Roberto Askew MD [address] [place] [address], [place] [address] PCP - General Internal Medicine 04/10/20 documented as of this encounter
--- OUTSIDE RECORDS SUMMARY | 2023-08-22 22:16 | External Medical Summary | Summary of Care ---
Author Name Unknown Organization [facility] Address [address] [place] [address] Phone [phone] Care Team Providers Care Physics Department Chair Name Role Phone Roberto Askew MD Primary Care Provider + Reason for Visit * Reason Comments Dosage Adjustment Via Phone (anticoag Cl inic) Encounter Details Date Type Department Care Team Description 02/26/2023 Anticoagulation Pharmacy Call Center [address] [place] [address] [facility] [address] [facility] [place] [address] History of pulmonary embolism* Allergies Active Allergy [...] as of this encounter (statuses as of 02/26/2023) Medications Medication Sig Dispensed Refills Start Date [...] day as needed. 0 Active nystatin (NYSTOP) 385543 UNIT/GM powderIndications:Cut aneous candidiasis Apply topically to [...] MG Oral TabletIndications:Cor onary artery disease involving [place] coronary artery of [place] heart without angina pectoris Take by mouth [...] MG Oral TabletIndications:Cor onary artery disease involving [place] coronary artery of [place] heart without angina pectoris TAKE ONE TABLET [...] Hour (toPROL XL)Indications:Harman ry artery disease involving [place] coronary artery of [place] heart without angina pectoris TAKE 1 & [...] as of this encounter (statuses as of 02/26/2023) Active Problems Problem Noted Date Bandemia 10/24/2021 [...] subarachnoid hemorrhage 10/04 Coronary artery disease involving [place] heart without angina pectoris 10/04/2020 COPD, group [...] as of this encounter (statuses as of 02/26/2023) Resolved Problems Problem Noted Date Resolved Date [...] Calculus of kidney 08/20/2015 02/01/2018 Overview: right, [place] CT Vitamin D deficiency 01/31/2015 02/01/2018 Body [...] as of this encounter (statuses as of 02/26/2023) Immunizations Name Administration Dates Next Due COVID-19 mRNA, LNP-s, No Pre serve, 2-Dose Series ([employer]) 01/02/2021,12/05/2020 DTP Vaccine 07/19/2017,04/03/2014 Hepatitis B, 20+ [...] Progress Notes * Keren Sanchez RPh - 02/26/2023 11:02 AM EDT [facility] [phone] LVM to Jesusita CORADO at [place] today. Advsied to call back if pt has not been admitted, or there isn't a provider to manage in house. [facility] will follow up weekly for discharge plans. Keren Sanchez Rph, Pharm.D. Clinical Pharmacist Centralized Clinical Pharmacy Services (CCPS) (formally Telepharmacy) [address] [facility], 4th Floor [address] [place] [address] 02/26/2023,11:04 AM documented in this encounter Plan of Treatment Upcoming Encounters Date Type Specialty Care Team Description 03/09/2023 Office Visit Cardiology Jacob Penn O, DO [address] [place] [address] Health Maintenance Due Date Last Done Comments DISCUSS TOBACCO CESSATION (REFER TO SMARTSET #2247) 1970 HIV Screening 1985 Pneumococcal Vaccine: Pediatrics (0 to 5 Years) and At-Risk Patients (6 to 64 Years) (2 - PCV) 05/22/2010 05/22/2009 Cologuard 2015 Fecal Occult Blood Test 2015 Sigmoidoscopy 2015 *ADVANCE DIRECTIVE NOT ON FILE 02/03/2020 LUNG CANCER SCREENING - USE SMARTSET [id number] 2020 02/10/2019, 07/19/2017, 05/09/2017, Additional history exists [...] this encounter Medical Devices Implanted Type Area Bilingual Sales Assistant Device Identifier Shelf Expiration Date Model / Serial / Lot Tube Flex 3.0x2.5 [id number] - [id number] Implanted:Qty: 1 on 12/07/2014 by Juancarlos Trinidad MD at [facility] Left: Finger [employer] : ORTHOPAEDICS 11/18/2015 [id number] / / [id number] documented as of this encounter Visit Diagnoses [...] the patient have Health Care Power of Cooler Man? No Healthcare Agents on File Name Relationship Healthcare Agent Relationship Communication Estrella Seth Other - (no specific identity) Health Care Power of Cooler Man Care Teams Physics Department Chair Relationship Specialty Start Date End Date Roberto Askew MD [address] [place] [address], [place] [address] PCP - General Internal Medicine 04/10/20 documented as of this encounter
--- OUTSIDE RECORDS SUMMARY | 2023-08-22 22:16 | External Medical Summary | Summary of Care ---
Author Name Unknown Organization [facility] Address [address] [place] [address] Phone [phone] Care Team Providers Care Crew Mess Attendant Name Role Phone Roberto Askew MD Primary Care Provider + Reason for Visit * Reason Onset Date Comments Other 03/01/2023 Encounter Details Date Type Department Care Team Description 03/01/2023 Telephone Pharmacy Call Center [address] [facility] [address] [facility] [address] [facility] [address] Other Allergies Active Allergy Reactions Severity Noted [...] day as needed. 0 Active nystatin (NYSTOP) 958744 UNIT/GM powderIndications:Cut aneous candidiasis Apply topically to [...] [place] heart without angina pectoris TAKE ONE TABLET [...] in the morning. Follow taper instructions from [facility]. 0 12/25/2022 Active guaiFENesin-Codeine 100-10 MG/5ML [...] of kidney 08/20/2015 02/01/2018 Overview: right, [place] CT Vitamin D deficiency 01/31/2015 02/01/2018 Body [...] mRNA, LNP-s, No Pre serve, 2-Dose Series ([employer]) 01/02/2021,12/05/2020 DTP Vaccine 07/19/2017,04/03/2014 Hepatitis B, 20+ [...] Centralized Clinical Pharmacy Services (CCPS) (Formerly Telepharmacy) [phone] 03/01/2023 9:36 AM * Telephone Encounter - ARTEM Varela - 03/01/2023 9:29 AM EDT Caller's name: Jesusita from [facility] Preferred call back number(OFFICE NUMBER FOR ): [phone] ext [phone] Reason for call: Jesusita is calling in stating there is a physician and DATA WAREHOUSING ARCHITECT are managing INR for pt. DATA WAREHOUSING ARCHITECT this week is Rocío Friedman Unsure of the Attending Physician this week. As of last Wednesday Attending Physician was Carlos Tolenitno Please advise. Thank you, Desiree Álvarez Paintless Dent Repair Technician 03/01/2023, 9:29 AM documented in this encounter Plan of Treatment Upcoming Encounters Date Type Specialty Care Team Description 03/04/[address] [address] [facility] [place] [address] 03/09/2023 Office Visit Cardiology Jacob Penn, DO [address] [place] [address] Health Maintenance Due Date Last Done Comments DISCUSS TOBACCO CESSATION (REFER TO SMARTSET #4020) 1970 HIV Screening 1985 Pneumococcal Vaccine: Pediatrics (0 to 5 Years) and At-Risk Patients (6 to 64 Years) (2 - PCV) 05/22/2010 05/22/2009 Cologuard 2015 Fecal Occult Blood Test 2015 Sigmoidoscopy 2015 *ADVANCE DIRECTIVE NOT ON FILE 02/03/2020 LUNG CANCER SCREENING - USE SMARTSET [id number] 2020 02/10/2019, 07/19/2017, 05/09/2017, Additional history exists [...] this encounter Medical Devices Implanted Type Area Cmm Operator Device Identifier Shelf Expiration Date Model / Serial / Lot Tube Flex 3.0x2.5 [id number] - [id number] Implanted:Qty: 1 on 12/07/2014 by Juancarlos Trinidad MD at [facility] Left: Finger [employer] : ORTHOPAEDICS 11/18/2015 [id number] / / [id number] documented as of this encounter Advance Directives [...] the patient have Health Care Power of Manufacturing Engineer Paint? No Healthcare Agents on File Name Relationship Healthcare Agent Relationship Communication Estrella Seth Other - (no specific identity) Health Care Power of Manufacturing Engineer Paint Care Teams Crew Mess Attendant Relationship Specialty Start Date End Date Roberto Askew MD [address] [place] [address] PCP - General Internal Medicine 04/10/20 documented as of this encounter
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
[2023-08-22 23:31] LABS: Basophils # (auto) 0.06 K/uL (0.00-0.20); Basophils % (auto) 0.5 %; Eosinophils # (auto) 0.36 K/uL (0.00-0.50); Eosinophils % (auto) 3.2 %; Hematocrit (blood only) 42.2 % (42.0-52.0); Hemoglobin 13.8 g/dl (14.0-18.0); Immature Granulocytes # (auto) 0.05 K/uL (0.01-0.20); Immature Granulocytes % (auto) 0.4 %; Lymphocytes # (auto) 2.67 K/uL (1.20-3.40); Lymphocytes % (auto) 23.4 %; Mean Corpuscular Hemoglobin 25.3 pg (25.0-34.0); Mean Corpuscular Hgb Conc 32.7 g/dL (32.0-36.0); Mean Corpuscular Volume 77.4 fL (80.0-100.0); Mean Platelet Volume 10.2 fL (9.4-12.4); Monocytes # (auto) 0.79 K/uL (0.11-0.59); Monocytes % (auto) 6.9 %; Neutrophils # (auto) 7.49 K/uL (1.40-6.50); Neutrophils % (auto) 65.6 %; Platelet Count 295 K/uL (130-400); RDW Standard Deviation 57.7 fL (36.4-46.3); Red Blood Count 5.45 M/uL (4.70-6.10); White Blood Count 11.42 K/ul (4.8-10.8)
[2023-08-22 23:41] LABS: INR 2.6 (0.9-1.1); Prothrombin Time 26.6 Seconds (9.0-12.0)
[2023-08-22 23:45] LABS: Albumin Level 3.5 gm/dl (3.4-5.0); BUN Creatinine Ratio 7.6 (10-20); Calcium 9.7 mg/dl (8.6-10.3); Creatinine Clr Calc Pharmacy 165.6 ml/min; Est GFR (African American) 109.7 ml/min; Est GFR (Non-African American) 94.6 ml/min; Globulin 3.4 gm/dl (2.5-4.0); Magnesium 1.4 mg/dl (1.7-2.4); Total Protein 6.9 gm/dl (6.0-8.3)
[2023-08-22 23:46] LABS: Troponin I High Sensitivity 7.2 pg/ml (0-20)
[2023-08-22] MEDS ORDERED: MAGNESIUM SULFATE / D5W 1 GM/100 ML BAG IV STA (23:48)
[2023-08-23 00:05] LABS: Anisocytosis Present; Polychromasia 1+
[2023-08-23 00:12] LABS: Base Excess VBG 24.4 mEq/L; HCO3 VBG 52 mmol/L; Oxygen Saturation VBG < 60.0 %; PCO2 VBG 65 mmHg (38-50); PO2 VBG 22 mmHg; pH VBG 7.51 (7.36-7.41)
[2023-08-23] MEDS ORDERED: POTASSIUM CHLORIDE CRTAB 20 MEQ TABCR PO STA ×2 (00:37→07:48)
[2023-08-23] MEDS ORDERED: ALBUMIN 25% 12.5 GM/50 ML VIAL IV ONE (00:45)
[2023-08-23 00:49] LABS: Adenovirus PCR Not Detected (NotDetected); Bordetella parapertussis PCR Not Detected (NotDetected); Bordetella pertussis PCR Not Detected (NotDetected); Chlamydia pneumoniae PCR Not Detected (NotDetected); Coronavirus 229E PCR Not Detected (NotDetected); Coronavirus CoV-2 (COVID19)PCR Not Detected (NotDetected); Coronavirus HKU1 PCR Not Detected (NotDetected); Coronavirus NL63 PCR Not Detected (NotDetected); Coronavirus OC43PCR Not Detected (NotDetected); Human Metapneumovirus PCR Not Detected (NotDetected); Influenza A PCR Not Detected (NotDetected); Influenza B PCR Not Detected (NotDetected); Mycoplasma pneumoniae PCR Not Detected (NotDetected); Parainfluenza Virus 1 PCR Not Detected (NotDetected); Parainfluenza Virus 2 PCR Not Detected (NotDetected); Parainfluenza Virus 3 PCR Not Detected (NotDetected); Parainfluenza Virus 4 PCR Not Detected (NotDetected); Respiratory Syncytial VirusPCR Not Detected (NotDetected)
[2023-08-23 00:51] LABS: Rhinovirus/Enterovirus PCR DETECTED (NotDetected)
[2023-08-23] MEDS ORDERED: XOPENEX/ATROVENT 1.25mg/0.5MG NEB COMBO NEB STA ×2 (01:04→16:35)
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
[2023-08-23] MEDS ORDERED: PROMETHAZINE HCL 12.5 MG in SODIUM CHLORIDE 0.9% 50 ML IV PRN (01:11)
[2023-08-23] MEDS ORDERED: ACETAMINOPHEN 500 MG TAB PO PRN (01:11)
[2023-08-23] MEDS ORDERED: DOCUSATE SODIUM 100 MG CAP PO PRN (01:14)
[2023-08-23] MEDS ORDERED: BENZONATATE 100 MG CAPSULE PO PRN (01:14)
[2023-08-23] MEDS ORDERED: LEVALBUTEROL 1.25 MG/3 ML NEB NEB STA ×2 (01:26→16:45)
[2023-08-23] MEDS ORDERED: IPRATROPIUM BROMIDE NEB SOLN 0.02% 2.5 ML VIAL INH STA ×2 (01:26→16:45)
[2023-08-23] MEDS ORDERED: OLANZapine 10 MG/2.1 ML SDV IM PRN (01:54)
[2023-08-23] MEDS ORDERED: GLUCOSE 40% GEL 15 GM TUBE PO PRN (02:51)
[2023-08-23] MEDS ORDERED: CARBOHYDRATES FOR HYPOGLYCEMIA PO PRN (02:51)
[2023-08-23] MEDS ORDERED: DEXTROSE 50% 50 ML SYRINGE IV PRN (02:51)
[2023-08-23] MEDS ORDERED: GLUCOSE 10 TAB/TUBE PO PRN (02:51)
[2023-08-23] MEDS ORDERED: GLUCAGON FOR INJ 1 MG VIAL SQ PRN (02:51)
[2023-08-23 02:54] LABS: Appearance Urine Turbid (Clear); Bacteria Urine Automated 4+ (Negative); Bilirubin Urine Negative (Negative); Blood Urine 3+ (Negative); Color Urine Dark Yellow; Epithelial Cell Urine Auto >30 /lpf (0-5); Glucose Urine UA Trace (Negative); Ketones Urine Trace (Negative); Leukocyte Esterase Urine 3+ (Negative); Nitrite Urine Positive (Negative); Specific Gravity Urine 1.016 (1.000-1.030); Urobilinogen Urine Negative (Negative); WBC Urine Automated >30 /hpf (0-5); pH Urine >= 9.0 (4.5-7.5)
[2023-08-23 02:56] LABS: Protein Urine 2+ (Negative)
[2023-08-23] MEDS: MAGNESIUM SULFATE / D5W 1 GM/100 ML BAG IV SCH ×2 (03:06→04:55)
[2023-08-23 03:07] LABS: RBC Urine Automated 0-4 /hpf (0-4)
[2023-08-23] MEDS: INSULIN ASPART PER UNIT CHARGE SC SCH ×5 (03:45→22:12)
[2023-08-23 06:08] LABS: Amorphous Sediment Urine Present (None Prsent); Calcium Oxalate Crystals Urine Present (None Prsent)
[2023-08-23] MEDS: PANTOprazole 40 MG TAB PO SCH (06:08)
[2023-08-23] MEDS: AZTREONAM 2,000 MG in DEXTROSE 5% MINI-B 100 ML IV SCH ×3 (06:09→20:08)
[2023-08-23] MEDS: LEVALBUTEROL 1.25 MG/3 ML NEB NEB SCH ×3 (06:13→21:05)
[2023-08-23] MEDS: IPRATROPIUM BROMIDE NEB SOLN 0.02% 2.5 ML VIAL INH SCH ×3 (06:14→21:05)
[2023-08-23 06:22] LABS: Basophils # (auto) 0.04 K/uL (0.00-0.20); Basophils % (auto) 0.3 %; Eosinophils # (auto) 0.03 K/uL (0.00-0.50); Eosinophils % (auto) 0.3 %; Hematocrit (blood only) 40.5 % (42.0-52.0); Hemoglobin 12.8 g/dl (14.0-18.0); Immature Granulocytes # (auto) 0.07 K/uL (0.01-0.20); Immature Granulocytes % (auto) 0.6 %; Lymphocytes # (auto) 0.95 K/uL (1.20-3.40); Lymphocytes % (auto) 8.2 %; Mean Corpuscular Hemoglobin 24.5 pg (25.0-34.0); Mean Corpuscular Hgb Conc 31.6 g/dL (32.0-36.0); Mean Corpuscular Volume 77.4 fL (80.0-100.0); Mean Platelet Volume 10.2 fL (9.4-12.4); Monocytes # (auto) 0.22 K/uL (0.11-0.59); Monocytes % (auto) 1.9 %; Neutrophils # (auto) 10.24 K/uL (1.40-6.50); Neutrophils % (auto) 88.7 %; Platelet Count 280 K/uL (130-400); RDW Coefficient of Variation 21.3 % (11.5-14.5); RDW Standard Deviation 57.1 fL (36.4-46.3); Red Blood Count 5.23 M/uL (4.70-6.10); White Blood Count 11.55 K/ul (4.8-10.8)
[2023-08-23 06:33] LABS: BUN Creatinine Ratio 9.5 (10-20); Calcium 9.5 mg/dl (8.6-10.3); Creatinine Clr Calc Pharmacy 205.9 ml/min; Est GFR (African American) 122.1 ml/min; Est GFR (Non-African American) 105.3 ml/min; Magnesium 1.8 mg/dl (1.7-2.4)
[2023-08-23 06:44] LABS: INR 2.4 (0.9-1.1); Prothrombin Time 24.5 Seconds (9.0-12.0)
[2023-08-23] MEDS ORDERED: XOPENEX/ATROVENT 1.25mg/0.5MG NEB COMBO NEB SCH (07:00)
[2023-08-23 07:04] LABS: Anisocytosis Present; Hypochromasia Present
--- NOTE | 2023-08-23 07:47 | XRay Report ---
XR chest 1V portable CLINICAL HISTORY: Dyspnea TECHNIQUE: Single frontal radiograph of the chest was obtained. Comparison: Comparison is made to chest radiograph 07/24/2023 FINDINGS: Exam is limited by underpenetration. Cardiomegaly is noted. Prominence and cephalization of the vascu lature is seen. No evidence of pleural effusion or pneumothorax. Prominence of the right pleura is ag ain seen. IMPRESSION: Cardiomegaly and mild pulmonary edema. ACT 112: Negative or not required by law. Electronically signed by: Armand Tobar M.D. 08/23/2023 7:45 AM
[2023-08-23 08:25] LABS: Estimated Average Glucose 206 mg/dl; Hemoglobin A1C 8.8 % (4.5-5.6)
[2023-08-23] MEDS ORDERED: LANTUS PER UNIT CHARGE SQ SCH ×2 (09:00)
[2023-08-23] MEDS: FINASTERIDE 5 MG TAB PO SCH (09:17)
[2023-08-23] MEDS: FLUTICASONE PROPIONATE NA SPR 16 GM BTL NAE SCH (09:17)
[2023-08-23] MEDS: ATORVASTATIN 40 MG TAB PO SCH (09:17)
[2023-08-23] MEDS: FAMOTIDINE 20 MG TAB PO SCH (09:17)
[2023-08-23] MEDS: FERROUS SULFATE 325 MG TAB PO SCH (09:17)
[2023-08-23] MEDS: FLUTICASONE/VILANTEROL 100/25MCG 14 PUFFS/INHALER INH SCH (09:17)
[2023-08-23] MEDS: FOLIC ACID 1 MG TAB PO SCH (09:18)
[2023-08-23] MEDS: ASPIRIN 81 MG ECTAB PO SCH (09:18)
[2023-08-23] MEDS: TAMSULOSIN HCL 0.4 MG CAP PO SCH (09:18)
[2023-08-23] MEDS: ADVANCED PROBIOTIC 1250 MG CAPSULE PO SCH (09:18)
[2023-08-23] MEDS: ISOSORBIDE DINITRATE 10 MG TAB PO SCH (09:18)
[2023-08-23] MEDS: METOPROLOL SUCC 25MG EXT REL TAB PO SCH ×2 (09:18→22:10)
[2023-08-23] MEDS: SPIRONOLACTONE 25 MG TAB PO SCH (09:18)
[2023-08-23] MEDS: TORSEMIDE 20 MG TAB PO SCH (10:00)
--- NOTE | 2023-08-23 10:56 | CT Scan Report ---
CT chest diagnostic wo con CT DOSE: 1356.39 mGy.cm HISTORY: Dyspnea. r/o pneumonia TECHNIQUE: Multiaxial CT images of the chest were performed without contrast. A dose lowering techni que was utilized adhering to the principles of ALARA. COMPARISON: Chest CTA 07/20/2023. FINDINGS: There is mild respiratory motion artifact. There is diffuse bronchial wall thickening. This has slightly progressed. No pneumothorax. No pleural effusions. There are few scattered patchy groun dglass airspace opacities seen within the lungs. These are most pronounced within the right upper lob e. These have changed compared to the prior study and therefore favor a mild multifocal pneumonia. No evidence for pulmonary edema. Old, healed left clavicle fracture. No acute fractures within the ches t. Limited views of the upper abdomen demonstrate a normal liver, spleen, and adrenal glands. Normal esophagus. No mediastinal or hilar lymphadenopathy. The heart is top normal in size. No pericardial e ffusion. Normal caliber thoracic aorta. IMPRESSION: There are few scattered patchy groundglass airspace opacities seen within the lungs. These have garcia ed compared to the prior study and therefore favor a mild multifocal pneumonia. A 3-[address] follow-up recommended to ensure resolution. ACT 112: Negative or not required by law. Electronically signed by: Vidal Keller M.D. 08/23/2023 10:54 AM
--- NOTE | 2023-08-23 12:48 | Electrocardiogram Report ---
Test Reason : Blood Pressure : / mmHG Vent. Rate : 097 BPM Atrial Rate : 097 BPM P-R Int : 154 ms QRS Dur : 110 ms QT Int : 398 ms P-R-T Axes : 066 049 070 degrees QTc Int : 505 ms Sinus rhythm with Premature atrial complexes Nonspecific ST and T wave abnormality Prolonged QT Abnormal ECG When compared with ECG of 22-JUL-2023 05:16, Premature atrial complexes are now Present ST now depressed in Inferior leads Nonspecific T wave abnormality, improved in Lateral leads Confirmed by Stanton Porter ([id number]) on 08/23/2023 12:48:16 PM Referred By: REFERRED SELF Confirmed By:Stanton Porter
[2023-08-23] MEDS ORDERED: XOPENEX/ATROVENT 1.25mg/0.5MG NEB COMBO NEB PRN (16:36)
[2023-08-23] MEDS ORDERED: IPRATROPIUM BROMIDE NEB SOLN 0.02% 2.5 ML VIAL INH PRN (16:45)
[2023-08-23] MEDS ORDERED: LEVALBUTEROL 1.25 MG/3 ML NEB NEB PRN (16:45)
--- NOTE | 2023-08-23 17:43 | Hospitalist Progress Note ---
Date of Service August 23, 2023 Assessment & Plan (1) Encephalopathy: Plan: per admitting service notes with addendum: Multifactorial: Hypoxemic, hypercapnic respiratory failure secondary to COPD exacerbation secondary to multifocal pneumonia, viral (rhinovirus) bronchitis, Sepsis secondary to complicated UTI, hx recurrent UTIs secondary to BPH w chronic indwelling Llody catheter, Home neuropsychotropic medications contributory 08/23 CT chest: Multifocal pneumonia Add linezolid to aztreonam Continue nebs every 6 hours Continue prednisone 20 mg p.o. daily Urine culture: Pending Blood cultures: Pending Currently on linezolid plus aztreonam Change Lloyd catheter hx chronic diastolic heart failure, patient euvolemic to dry --Continue usual torsemide and spironolactone hx CAD as per records Hypertension, BP on the lower side Hyperlipidemia on statin Rx History recurrent PE, INR therapeutic Past hx traumatic subdural hematoma/subarachnoid hemorrhage DM 2 on oral medications, suboptimal control as of recent outpatient hemoglobin A1c of 7.27 March 2023 Hypokalemia secondary to home diuretic/insulin Rx Hypomagnesemia secondary to diuretic Rx chronic pain on Subutex, history of drug-seeking behavior as per records Chronic anemia, hemoglobin at baseline functional disability ongoing tobacco abuse PT OT eval once medically stable Nicotine patch as needed DVT prophylaxis. Coumadin INR goal between 2 and 3 Full code plan of care discussed with patient in detail and at length all questions answered he is understanding, agreeable, comfortable with the plan of care Admission and Anticipated Discharge Date Admission Date: August 23, 2023 Subjective Follow-up for pneumonia, UTI, etc. Seen resting in bed, comfortable, not in distress On 5 L of O2 via nasal cannula Patient states he was having some shortness of breath Still having some cough No abdominal pain, nausea or vomiting No other new symptoms Patient was also crying, states " I am losing my mind" Patient reassured Review of Systems Review of Systems: all noted and negative except for above Physical Exam Physical Exam: General- oriented x 3, not in distress, speaks in sentences with no effort or accessory muscle use Head- atraumatic Eyes- PERRL, EOMI, anicteric ENT- oropharynx clear Neck- supple, no JVD, no adenopathy, no thyromegaly; carotids +2/2, no bruits appreciated Lungs-positive mild scattered wheezing bilaterally, also has mild rhonchi Good air entry bilaterally Heart- normal rate, regular rhythm; no murmur, no gallop, no rub appreciated Abdomen- normal bowel sounds, nondistended, soft, nontender, no masses or hepatosplenomegaly Lloyd catheter in place: Draining yellow urine Extremities-grade 1 lower extremity edema edema, no calf tenderness; peripheral pulses intact Neuro- alert, oriented x 3; CN 2-12 grossly intact; motor 5/5 bilaterally;sensation 100% on all extremities; no other gross focal neurologic deficits Skin- warm & dry Results & Data Results & Data Vital Signs (Past 12 Hours) Vital Signs Pulse Pulse Resp BP BP Pulse Ox O2 Del Method 08/23/23 15:51 94 H 08/23/23 12:18 89 22 93 Nasal Cannula 08/23/23 12:04 82 18 97 Nasal Cannula 08/23/23 10:08 88 18 147/86 H 94 Nasal Cannula 08/23/23 07:08 84 08/23/23 07:00 90 14 125/74 93 Nasal Cannula 08/23/23 07:00 85 20 125/74 91 Nasal Cannula 08/23/23 06:15 87 18 93 Nasal Cannula 08/23/23 06:00 88 13 105/67 90 Nasal Cannula O2 Flow Rate 08/23/23 15:51 08/23/23 12:18 5 08/23/23 12:04 5 08/23/23 10:08 5 08/23/23 07:08 08/23/23 07:00 5 08/23/23 07:00 5 08/23/23 06:15 5 08/23/23 06:00 5 all noted and reviewed including below
[2023-08-23] MEDS ORDERED: WARFARIN SOD 2.5 MG TAB PO SCH (18:00)
[2023-08-23] MEDS ORDERED: MoRPHine SULFATE 4 MG/ML 1 ML CARP\\VIAL IV STA (18:45)
[2023-08-23] MEDS: buprenorphine HCL 8 MG SUBL SL SCH (20:08)
[2023-08-23] MEDS: LINEZOLID 600 MG TAB PO SCH (22:12)
[2023-08-23] MEDS: CYCLOBENZAPRINE HCL 10 MG TAB PO PRN (22:12)
[2023-08-23] MEDS: LORazepam 0.5 MG TAB PO PRN (23:15)
[2023-08-23] MEDS: MELATONIN 3 MG TAB PO PRN (23:15)
[2023-08-24] MEDS: IPRATROPIUM BROMIDE NEB SOLN 0.02% 2.5 ML VIAL INH SCH ×5 (00:48→19:21)
[2023-08-24] MEDS: LEVALBUTEROL 1.25 MG/3 ML NEB NEB SCH ×5 (00:49→19:22)
[2023-08-24] MEDS ORDERED: NITROGLYCERIN SL 0.4 MG/TAB TAB SL STA (02:27)
[2023-08-24] MEDS ORDERED: ALBUMIN 25% 12.5 GM/50 ML VIAL IV ONE (02:28)
[2023-08-24] MEDS ORDERED: ACETAMINOPHEN 1,000 MG/100 ML VIAL IV STA (02:51)
[2023-08-24 03:53] LABS: Hematocrit (blood only) 40.7 % (42.0-52.0); Hemoglobin 12.8 g/dl (14.0-18.0); Mean Corpuscular Hemoglobin 24.4 pg (25.0-34.0); Mean Corpuscular Hgb Conc 31.4 g/dL (32.0-36.0); Mean Corpuscular Volume 77.7 fL (80.0-100.0); Platelet Count 333 K/uL (130-400); RDW Coefficient of Variation 21.5 % (11.5-14.5); RDW Standard Deviation 57.2 fL (36.4-46.3); Red Blood Count 5.24 M/uL (4.70-6.10)
[2023-08-24] MEDS: AZTREONAM 2,000 MG in DEXTROSE 5% MINI-B 100 ML IV SCH ×3 (03:55→21:36)
[2023-08-24 04:10] LABS: BUN Creatinine Ratio 10.9 (10-20); Calcium 9.5 mg/dl (8.6-10.3); Creatinine Clr Calc Pharmacy 150.9 ml/min; Est GFR (Non-African American) 84.5 ml/min; Magnesium 1.4 mg/dl (1.7-2.4); Potassium 2.8 mmol/L (3.5-5.1)
[2023-08-24 04:14] LABS: Anisocytosis Present; Basophils # (auto) 0.09 K/uL (0.00-0.20); Basophils % (auto) 0.5 %; Eosinophils # (auto) 0.21 K/uL (0.00-0.50); Eosinophils % (auto) 1.3 %; Immature Granulocytes # (auto) 0.15 K/uL (0.01-0.20); Immature Granulocytes % (auto) 0.9 %; Lymphocytes # (auto) 4.02 K/uL (1.20-3.40); Lymphocytes % (auto) 23.9 %; Monocytes # (auto) 1.13 K/uL (0.11-0.59); Monocytes % (auto) 6.7 %; Neutrophils % (auto) 66.7 %; Polychromasia 1+
[2023-08-24 04:16] LABS: INR 2.1 (0.9-1.1); Partial Thromboplastin Ratio 1.5
[2023-08-24] MEDS ORDERED: POTASSIUM CHLORIDE CRTAB 20 MEQ TABCR PO STA (04:33)
[2023-08-24 04:41] LABS: Partial Thromboplastin Time 41.6 Seconds (21.0-31.0)
[2023-08-24] MEDS ORDERED: NITROGLYCERIN SL 0.4 MG/TAB TAB SL PRN (05:01)
[2023-08-24 05:06] LABS: Troponin I High Sensitivity 5.8 pg/ml (0-20)
[2023-08-24] MEDS: COUGH DROP (SUGAR FREE) LOZ 24 LOZ/1 BOX BUCCAL PRN (05:07)
[2023-08-24] MEDS: MAGNESIUM SULFATE / D5W 1 GM/100 ML BAG IV SCH ×3 (05:08→08:43)
--- NOTE | 2023-08-24 05:50 | Communication Note ---
Date of Service: August 24, 2023 2 AM Patient complained of sudden onset chest pain to RN. Some relief with nitroglycerin and IV Tylenol. EKG as per my interpretation rate 100, NSR, normal axis, septal infarct, ST depression lateral leads Ap Chest pain History CAD as per records Troponin x2 Hold Coumadin for now May need Cardiology eval
[2023-08-24] MEDS: PANTOprazole 40 MG TAB PO SCH (06:21)
[2023-08-24] MEDS ORDERED: POTASSIUM CHLORIDE CRTAB 20 MEQ TABCR PO ONE ×2 (06:30→07:30)
[2023-08-24] MEDS: FERROUS SULFATE 325 MG TAB PO SCH (07:38)
[2023-08-24] MEDS ORDERED: MAGNESIUM SULFATE / D5W 1 GM/100 ML BAG IV SCH (08:15)
[2023-08-24] MEDS: FLUTICASONE PROPIONATE NA SPR 16 GM BTL NAE SCH (08:24)
[2023-08-24] MEDS: FLUTICASONE/VILANTEROL 100/25MCG 14 PUFFS/INHALER INH SCH (08:24)
[2023-08-24] MEDS: SENNA 8.6 MG TAB PO PRN (08:25)
[2023-08-24] MEDS: LINEZOLID 600 MG TAB PO SCH ×2 (08:25→21:36)
[2023-08-24] MEDS: METOPROLOL SUCC 25MG EXT REL TAB PO SCH ×2 (08:25→21:37)
[2023-08-24] MEDS: ISOSORBIDE DINITRATE 10 MG TAB PO SCH (08:26)
[2023-08-24] MEDS: predniSONE 20 MG TAB PO SCH (08:26)
[2023-08-24] MEDS: ADVANCED PROBIOTIC 1250 MG CAPSULE PO SCH (08:26)
[2023-08-24] MEDS: ATORVASTATIN 40 MG TAB PO SCH (08:26)
[2023-08-24] MEDS: FINASTERIDE 5 MG TAB PO SCH (08:27)
[2023-08-24] MEDS: TORSEMIDE 20 MG TAB PO SCH (08:27)
[2023-08-24] MEDS: FOLIC ACID 1 MG TAB PO SCH (08:28)
[2023-08-24] MEDS: SPIRONOLACTONE 25 MG TAB PO SCH (08:28)
[2023-08-24] MEDS: buprenorphine HCL 8 MG SUBL SL SCH ×3 (08:42→21:35)
[2023-08-24] MEDS ORDERED: ADVANCED PROBIOTIC 1250 MG CAPSULE PO SCH (09:00)
[2023-08-24] MEDS: TAMSULOSIN HCL 0.4 MG CAP PO SCH (10:21)
[2023-08-24] MEDS: ASPIRIN 81 MG ECTAB PO SCH (10:21)
[2023-08-24] MEDS: FAMOTIDINE 20 MG TAB PO SCH (10:22)
[2023-08-24] MEDS: INSULIN ASPART PER UNIT CHARGE SC SCH ×4 (10:28→21:35)
[2023-08-24] MEDS: LANTUS PER UNIT CHARGE SQ SCH (10:29)
--- NOTE | 2023-08-24 19:53 | Hospitalist Progress Note ---
Date of Service August 24, 2023 Assessment & Plan (1) Encephalopathy: Plan: per admitting service notes with addendum: Multifactorial: Hypoxemic, hypercapnic respiratory failure secondary to COPD exacerbation secondary to multifocal pneumonia, viral (rhinovirus) bronchitis, Sepsis secondary to complicated UTI, hx recurrent UTIs secondary to BPH w chronic indwelling Lloyd catheter, Home neuropsychotropic medications contributory 08/24 Mental status back to baseline CT chest: Multifocal pneumonia Continue nebs every 6 hours Continue prednisone 20 mg p.o. daily Continue linezolid plus aztreonam day #2 Urine culture: E coli Blood cultures: Pending Currently on linezolid plus aztreonam Lloyd catheter changed today hx chronic diastolic heart failure, patient euvolemic to dry --Continue usual torsemide and spironolactone hx CAD as per records Hypertension Hyperlipidemia on statin Rx History recurrent PE, INR therapeutic, continue Coumadin Past hx traumatic subdural hematoma/subarachnoid hemorrhage DM 2 on oral medications, suboptimal control as of recent outpatient hemoglobin A1c of 7.27 March 2023 Hypokalemia secondary to home diuretic/insulin Rx Hypomagnesemia secondary to diuretic Rx chronic pain on Subutex, history of drug-seeking behavior as per records Chronic anemia, hemoglobin at baseline functional disability ongoing tobacco abuse PT OT eval once medically stable Nicotine patch as needed DVT prophylaxis. Coumadin INR goal between 2 and 3 Full code plan of care discussed with patient in detail and at length all questions answered he is understanding, agreeable, comfortable with the plan of care Admission and Anticipated Discharge Date Admission Date: August 23, 2023 Subjective Follow-up for acute hypoxic respiratory failure, multifocal pneumonia, [employer] exacerbation, etc. Seen resting in bed side chair, comfortable, not in distress On 5 L of oxygen via nasal cannula States breathing is improving, still having some cough No chest pain, palpitations, dizziness Abdominal pain No other new symptom Review of Systems 2 Review of Systems: all noted and negative except for above Physical Exam Physical Exam: General- oriented x 3, not in distress, speaks in sentences with no effort or accessory muscle use Eyes- anicteric Neck- no JVD Lungs- clear breath sounds bilaterally, no rales/wheezes Heart- normal rate, regular rhythm; no murmurs Abdomen- normal bowel sounds, nondistended, soft, nontender Lloyd catheter: Draining yellow urine Extremities- mild lower leg edema-no erythema/warmth/tenderness, no calf tenderness Neuro- alert, oriented x 3; no gross focal neurologic deficits Skin- warm & dry Results & Data Results & Data Vital Signs (Past 12 Hours) Vital Signs Temp Pulse Pulse Resp BP Pulse Ox O2 Del Method 08/24/23 19:48 37.0 C 97 H 20 150/88 H 95 Nasal Cannula 08/24/23 19:25 101 H 18 95 Nasal Cannula 08/24/23 15:14 36.9 C 99 H 18 114/72 92 Nasal Cannula 08/24/23 14:16 112 H 08/24/23 13:24 100 H 16 89 L Nasal Cannula 08/24/23 12:02 36.9 C 97 H 18 135/82 92 Nasal Cannula O2 Flow Rate 08/24/23 19:48 2 08/24/23 19:25 5 08/24/23 15:14 5 08/24/23 14:16 08/24/23 13:24 5 08/24/23 12:02 5 all noted and reviewed including below
[2023-08-24] MEDS: CYCLOBENZAPRINE HCL 10 MG TAB PO PRN (21:35)
[2023-08-24] MEDS: MELATONIN 3 MG TAB PO PRN (22:48)
[2023-08-24] MEDS: LORazepam 0.5 MG TAB PO PRN (22:48)
[2023-08-25] MEDS: LEVALBUTEROL 1.25 MG/3 ML NEB NEB SCH ×4 (01:59→19:37)
[2023-08-25] MEDS: IPRATROPIUM BROMIDE NEB SOLN 0.02% 2.5 ML VIAL INH SCH ×4 (01:59→19:37)
[2023-08-25] MEDS ORDERED: ACETAMINOPHEN 1,000 MG/100 ML VIAL IV STA ×3 (02:59→23:39)
[2023-08-25] MEDS: AZTREONAM 2,000 MG in DEXTROSE 5% MINI-B 100 ML IV SCH ×3 (04:09→20:57)
[2023-08-25] MEDS: SODIUM CHLORIDE 0.65% NA SOLN 45 ML (OCEAN) PRN ×2 (05:16→08:06)
[2023-08-25] MEDS: PANTOprazole 40 MG TAB PO SCH (05:16)
[2023-08-25 06:54] LABS: Basophils # (auto) 0.09 K/uL (0.00-0.20); Basophils % (auto) 0.6 %; Eosinophils # (auto) 0.15 K/uL (0.00-0.50); Hematocrit (blood only) 37.7 % (42.0-52.0); Hemoglobin 11.7 g/dl (14.0-18.0); Immature Granulocytes # (auto) 0.08 K/uL (0.01-0.20); Immature Granulocytes % (auto) 0.6 %; Lymphocytes # (auto) 3.98 K/uL (1.20-3.40); Lymphocytes % (auto) 27.8 %; Mean Corpuscular Hemoglobin 24.2 pg (25.0-34.0); Mean Corpuscular Volume 78.1 fL (80.0-100.0); Mean Platelet Volume 9.6 fL (9.4-12.4); Monocytes # (auto) 1.05 K/uL (0.11-0.59); Monocytes % (auto) 7.3 %; Neutrophils # (auto) 8.96 K/uL (1.40-6.50); Neutrophils % (auto) 62.7 %; Platelet Count 278 K/uL (130-400); RDW Coefficient of Variation 21.3 % (11.5-14.5); RDW Standard Deviation 58.4 fL (36.4-46.3); Red Blood Count 4.83 M/uL (4.70-6.10); White Blood Count 14.31 K/ul (4.8-10.8)
[2023-08-25 07:24] LABS: BUN Creatinine Ratio 15.4 (10-20); Creatinine Clr Calc Pharmacy 123.6 ml/min; Est GFR (African American) 77.2 ml/min; Est GFR (Non-African American) 66.6 ml/min; Potassium 3.2 mmol/L (3.5-5.1)
[2023-08-25 07:36] LABS: Anisocytosis Present; Polychromasia 1+
[2023-08-25] MEDS: CYCLOBENZAPRINE HCL 10 MG TAB PO PRN ×2 (08:03→20:57)
[2023-08-25] MEDS: buprenorphine HCL 8 MG SUBL SL SCH ×3 (08:03→20:57)
[2023-08-25] MEDS: POLYETHYLENE (MIRALAX) 17 GM PACK PO PRN (08:04)
[2023-08-25] MEDS: FLUTICASONE/VILANTEROL 100/25MCG 14 PUFFS/INHALER INH SCH (08:06)
[2023-08-25] MEDS: FLUTICASONE PROPIONATE NA SPR 16 GM BTL NAE SCH (08:06)
[2023-08-25] MEDS: ATORVASTATIN 40 MG TAB PO SCH (08:07)
[2023-08-25] MEDS: SENNA 8.6 MG TAB PO PRN (08:07)
[2023-08-25] MEDS: TAMSULOSIN HCL 0.4 MG CAP PO SCH (08:07)
[2023-08-25] MEDS: FAMOTIDINE 20 MG TAB PO SCH (08:07)
[2023-08-25] MEDS: FOLIC ACID 1 MG TAB PO SCH (08:07)
[2023-08-25] MEDS: METOPROLOL SUCC 25MG EXT REL TAB PO SCH ×2 (08:07→20:58)
[2023-08-25] MEDS: FINASTERIDE 5 MG TAB PO SCH (08:07)
[2023-08-25] MEDS: SPIRONOLACTONE 25 MG TAB PO SCH (08:07)
[2023-08-25] MEDS: COUGH DROP (SUGAR FREE) LOZ 24 LOZ/1 BOX BUCCAL PRN (08:07)
[2023-08-25] MEDS: FERROUS SULFATE 325 MG TAB PO SCH (08:07)
[2023-08-25] MEDS: TORSEMIDE 20 MG TAB PO SCH (08:08)
[2023-08-25] MEDS: ASPIRIN 81 MG ECTAB PO SCH (08:08)
[2023-08-25] MEDS: ISOSORBIDE DINITRATE 10 MG TAB PO SCH (08:08)
[2023-08-25] MEDS: ADVANCED PROBIOTIC 1250 MG CAPSULE PO SCH (08:08)
[2023-08-25] MEDS: predniSONE 20 MG TAB PO SCH (08:08)
[2023-08-25] MEDS: POTASSIUM CHLORIDE CRTAB 20 MEQ TABCR PO SCH ×2 (08:09→21:12)
[2023-08-25] MEDS: LINEZOLID 600 MG TAB PO SCH ×2 (08:09→21:00)
[2023-08-25] MEDS: LANTUS PER UNIT CHARGE SQ SCH (09:33)
[2023-08-25] MEDS: INSULIN ASPART PER UNIT CHARGE SC SCH ×4 (09:33→20:57)
[2023-08-25] MEDS ORDERED: MICONAZOLE NITRATE POWDER 85 GM EXT PRN (10:56)
[2023-08-25] MEDS ORDERED: POTASSIUM CHLORIDE CRTAB 20 MEQ TABCR PO STA (15:06)
--- NOTE | 2023-08-25 15:10 | Hospitalist Progress Note ---
Date of Service August 25, 2023 Assessment & Plan (1) Encephalopathy: Plan: Per previous hospitalist with addendum: Multifactorial: Hypoxemic, hypercapnic respiratory failure secondary to COPD exacerbation secondary to multifocal pneumonia, viral (rhinovirus) bronchitis, Sepsis secondary to complicated UTI, hx recurrent UTIs secondary to BPH w chronic indwelling Lloyd catheter, Home neuropsychotropic medications contributory CT chest personally reviewed; mild multifocal pneumonia Continue nebs every 6 hours Continue prednisone 20 mg p.o. daily Continue linezolid plus aztreonam day #3 Urine culture: E coli Blood cultures: No growth in 48 hours MRSA nares positive Currently on linezolid plus aztreonam: Plan to treat for 5 days Lloyd catheter exchange on August 24, 2023. hx chronic diastolic heart failure, patient euvolemic to dry --Continue usual torsemide and spironolactone hx CAD as per records Hypertension Hyperlipidemia on statin Rx History recurrent PE, INR therapeutic, continue Coumadin Past hx traumatic subdural hematoma/subarachnoid hemorrhage DM 2 on oral medications, suboptimal control as of recent outpatient hemoglobin A1c of 7.27 March 2023 Hypokalemia secondary to home diuretic/insulin Rx Hypomagnesemia secondary to diuretic Rx chronic pain on Subutex, Chronic anemia, hemoglobin at baseline functional disability ongoing tobacco abuse PT OT eval recommends home Nicotine patch as needed DVT prophylaxis. Coumadin INR goal between 2 and 3 Full code Time spent evaluating patient, direct bedside care, chart review, placing orders, interpretation of diagnostic studies, discussion with consultants, patient, and family members, as well as other required patient management activities is 60 minutes Please note the above document was generated using voice recognition software. It may contain grammatical, syntax or spelling errors. Any formal questions or concerns about the content, text or information contained within the body of this dictation should be directly addressed to the provider for clarification Admission and Anticipated Discharge Date Admission Date: August 23, 2023 Subjective Patient seen and examined at bedside. He is sitting up on the chair at the side of the bed; not in any distress. He denies any increasing shortness of breath or chest pain. Review of Systems Review of Systems: All systems reviewed & are unremarkable except as noted in Subjective Physical Exam Physical Exam: General- oriented x 3, not in distress, speaks in sentences with no effort or accessory muscle use Eyes- anicteric Neck- no JVD Lungs-occasional wheeze. No crackles. Heart- normal rate, regular rhythm; no murmurs Abdomen- normal bowel sounds, nondistended, soft, nontender Lloyd catheter: Draining yellow urine Extremities- mild lower leg edema-no erythema/warmth/tenderness, no calf tenderness Neuro- alert, oriented x 3; no gross focal neurologic deficits Skin- warm & dry Results & Data Results & Data Vital Signs (Past 12 Hours) Vital Signs Temp Pulse Pulse Resp BP Pulse Ox O2 Del Method 08/25/23 13:28 98 H 14 91 Nasal Cannula 08/25/23 10:58 37.1 C 104 H 18 144/67 H 93 Nasal Cannula 08/25/23 08:00 Nasal Cannula 08/25/23 07:37 84 18 94 Nasal Cannula 08/25/23 07:35 89 08/25/23 07:17 36.6 C 87 18 153/73 H 94 Nasal Cannula 08/25/23 04:33 36.6 C 94 H 20 102/68 94 Nasal Cannula O2 Flow Rate 08/25/23 13:28 4 08/25/23 10:58 5 08/25/23 08:00 4 08/25/23 07:37 5 08/25/23 07:35 08/25/23 07:17 5 08/25/23 04:33 5 Laboratory Results Laboratory Results WBC 14.31 K/ul (4.8-10.8) H 08/25/23 05:53 RBC 4.83 M/uL (4.70-6.10) 08/25/23 05:53 Hgb 11.7 g/dl (14.0-18.0) L 08/25/23 05:53 Hct 37.7 % (42.0-52.0) L 08/25/23 05:53 MCV 78.1 fL (80.0-100.0) L 08/25/23 05:53 MCH 24.2 pg (25.0-34.0) L 08/25/23 05:53 MCHC 31.0 g/dL (32.0-36.0) L 08/25/23 05:53 RDW Std Deviation 58.4 fL (36.4-46.3) H 08/25/23 05:53 RDW Coeff of Megan 21.3 % (11.5-14.5) H 08/25/23 05:53 Plt Count 278 K/uL (130-400) 08/25/23 05:53 MPV 9.6 fL (9.4-12.4) 08/25/23 05:53 Immature Gran % (Auto) 0.6 % 08/25/23 05:53 Neut % (Auto) 62.7 % 08/25/23 05:53 Lymph % (Auto) 27.8 % 08/25/23 05:53 [place] % (Auto) 7.3 % 08/25/23 05:53 Eos % (Auto) 1.0 % 08/25/23 05:53 Baso % (Auto) 0.6 % 08/25/23 05:53 Neut # (Auto) 8.96 K/uL (1.40-6.50) H 08/25/23 05:53 Lymph # (Auto) 3.98 K/uL (1.20-3.40) H 08/25/23 05:53 [place] # (Auto) 1.05 K/uL (0.11-0.59) H 08/25/23 05:53 Eos # (Auto) 0.15 K/uL (0.00-0.50) 08/25/23 05:53 Baso # (Auto) 0.09 K/uL (0.00-0.20) 08/25/23 05:53 Immature Gran # (Auto) 0.08 K/uL (0.01-0.20) 08/25/23 05:53 Polychromasia 1+ 08/25/23 05:53 Hypochromasia Present 08/23/23 05:56 Anisocytosis Present 08/25/23 05:53 PT 22.0 Seconds (9.0-12.0) H 08/24/23 02:55 INR 2.1 (0.9-1.1) H 08/24/23 02:55 APTT 41.6 Seconds (21.0-31.0) H* 08/24/23 02:55 PTT Ratio 1.5 08/24/23 02:55 VBG pH 7.51 (7.36-7.41) H 08/22/23 23:56 VBG pCO2 65 mmHg (38-50) H 08/22/23 23:56 VBG pO2 22 mmHg 08/22/23 23:56 VBG HCO3 52 mmol/L 08/22/23 23:56 VBG O2 Saturation < 60.0 % 08/22/23 23:56 VBG Base Excess 24.4 mEq/L 08/22/23 23:56 Sodium 138 mmol/L (136-145) 08/25/23 05:53 Potassium 3.2 mmol/L (3.5-5.1) L 08/25/23 05:53 Chloride 94 mmol/L (98-107) L 08/25/23 05:53 Carbon Dioxide 36 mmol/L (21-32) H 08/25/23 05:53 Anion Gap 8 (3-11) 08/25/23 05:53 BUN 19 mg/dl (6-23) 08/25/23 05:53 Creatinine 1.23 mg/dl (0.6-1.4) 08/25/23 05:53 Est Cr Clr Drug Dosing 123.6 ml/min 08/25/23 05:53 Est GFR ( Amer) 77.2 ml/min 08/25/23 05:53 Est GFR (Non-Af Amer) 66.6 ml/min 08/25/23 05:53 BUN/Creatinine Ratio 15.4 (10-20) 08/25/23 05:53 Glucose 187 mg/dl (70-99(Fasting)) H 08/25/23 05:53 POC Glucose 272 mg/dl (70-99) H 08/25/23 11:51 Estimat Average Glucose 206 mg/dl 08/23/23 05:56 Hemoglobin A1c 8.8 % (4.5-5.6) H 08/23/23 05:56 Lactate 1.6 mmol/L (0.4-2.0) 08/23/23 02:05 Calcium 9.0 mg/dl (8.6-10.3) 08/25/23 05:53 Magnesium 1.4 mg/dl (1.7-2.4) L 08/24/23 02:55 Total Bilirubin 1.0 mg/dl (0.2-1.0) 08/22/23 22:25 AST 16 U/L (13-39) 08/22/23 22:25 ALT 13 U/L (7-52) 08/22/23 22:25 Alkaline Phosphatase 106 U/L (34-104) H 08/22/23 22:25 Ammonia 33.0 umol/L (18-72) 08/23/23 05:56 Troponin I High Sens 5.4 pg/ml (0-20) 08/24/23 05:40 B-Natriuretic Peptide 41 pg/ml (0-100) 08/22/23 22:25 Total Protein 6.9 gm/dl (6.0-8.3) 08/22/23 22:25 Albumin 3.5 gm/dl (3.4-5.0) 08/22/23 22:25 Globulin 3.4 gm/dl (2.5-4.0) 08/22/23 22:25 Albumin/Globulin Ratio 1.0 (0.9-2) 08/22/23 22:25 Procalcitonin 0.06 ng/ml (0-0.5) 08/22/23 22:25 Urine Color Dark Yellow 08/23/23 01:20 Urine Appearance Turbid (Clear) A 08/23/23 01:20 Urine pH >= 9.0 (4.5-7.5) H 08/23/23 01:20 Ur Specific Leland 1.016 (1.000-1.030) 08/23/23 01:20 Urine Protein 2+ (Negative) H 08/23/23 01:20 Urine Glucose (UA) Trace (Negative) H 08/23/23 01:20 Urine Ketones Trace (Negative) H 08/23/23 01:20 Urine Blood 3+ (Negative) H 08/23/23 01:20 Urine Nitrite Positive (Negative) A 08/23/23 01:20 Urine Bilirubin Negative (Negative) 08/23/23 01:20 Urine Urobilinogen Negative (Negative) 08/23/23 01:20 Ur Leukocyte Esterase 3+ (Negative) H 08/23/23 01:20 Urine WBC (Auto) >30 /hpf (0-5) H 08/23/23 01:20 Urine RBC (Auto) 0-4 /hpf (0-4) 08/23/23 01:20 U Hyaline Cast (Auto) 1-5 /lpf (0-5) 08/23/23 01:20 U Epithel Cells (Auto) >30 /lpf (0-5) H 08/23/23 01:20 Urine Bacteria (Auto) 4+ (Negative) H 08/23/23 01:20 Urine Crystals Not Reportable 08/23/23 01:20 Calcium Oxalate Crystal Present (None Prsent) A 08/23/23 01:20 Amorphous Sediment Present (None Prsent) A 08/23/23 01:20 Urine Yeast Not Reportable 08/23/23 01:20 Nasal Screen MRSA (PCR) Positive (Negative) A 08/25/23 09:40 Adenovirus (PCR) Not Detected (NotDetected) 08/22/23 23:50 B. pertussis DNA (PCR) Not Detected (NotDetected) 08/22/23 23:50 B.parapertussis DNA PCR Not Detected (NotDetected) 08/22/23 23:50 C. pneumoniae DNA (PCR) Not Detected (NotDetected) 08/22/23 23:50 Coronavirus OC43 (PCR) Not Detected (NotDetected) 08/22/23 23:50 Coronavirus HKU1 (PCR) Not Detected (NotDetected) 08/22/23 23:50 Coronavirus 229E (PCR) Not Detected (NotDetected) 08/22/23 23:50 SARS-CoV-2 (PCR) Not Detected (NotDetected) 08/22/23 23:50 Coronavirus NL63 (PCR) Not Detected (NotDetected) 08/22/23 23:50 Human Metapneumovir PCR Not Detected (NotDetected) 08/22/23 23:50 Influenza Type A (PCR) Not Detected (NotDetected) 08/22/23 23:50 Influenza Type B (PCR) Not Detected (NotDetected) 08/22/23 23:50 M. pneumoniae (PCR) Not Detected (NotDetected) 08/22/23 23:50 Parainfluenza 1 (PCR) Not Detected (NotDetected) 08/22/23 23:50 Parainfluenza 2 (PCR) Not Detected (NotDetected) 08/22/23 23:50 Parainfluenza 3 (PCR) Not Detected (NotDetected) 08/22/23 23:50 Parainfluenza 4 (PCR) Not Detected (NotDetected) 08/22/23 23:50 RSV (PCR) Not Detected (NotDetected) 08/22/23 23:50 Entero/Rhino (PCR) DETECTED (NotDetected) A* 08/22/23 23:50 Impressions Chest X-Ray 08/22/23 23:04 XR chest 1V portable CLINICAL HISTORY: Dyspnea TECHNIQUE: Single frontal radiograph of the chest was obtained. Comparison: Comparison is made to chest radiograph 07/24/2023 FINDINGS: Exam is limited by underpenetration. Cardiomegaly is noted. Prominence and cephalization of the vasculature is seen. No evidence of pleural effusion or pneumothorax. Prominence of the right pleura is again seen. IMPRESSION: Cardiomegaly and mild pulmonary edema. ACT 112: Negative or not required by law. Electronically signed by: Armand Tobar M.D. 08/23/2023 7:[address] 08/23/23 07:57 CT chest diagnostic wo con CT DOSE: 1356.39 mGy.cm HISTORY: Dyspnea. r/o pneumonia TECHNIQUE: Multiaxial CT images of the chest were performed without contrast. A dose lowering technique was utilized adhering to the principles of ALARA. COMPARISON: Chest CTA 07/20/2023. FINDINGS: There is mild respiratory motion artifact. There is diffuse bronchial wall thickening. This has slightly progressed. No pneumothorax. No pleural effusions. There are few scattered patchy groundglass airspace opacities seen within the lungs. These are most pronounced within the right upper lobe. These have changed compared to the prior study and therefore favor a mild multifocal pneumonia. No evidence for pulmonary edema. Old, healed left clavicle fracture. No acute fractures within the chest. Limited views of the upper abdomen demonstrate a normal liver, spleen, and adrenal glands. Normal esophagus. No mediastinal or hilar lymphadenopathy. The heart is top normal in size. No pericardial effusion. Normal caliber thoracic aorta. IMPRESSION: There are few scattered patchy groundglass airspace opacities seen within the lungs. These have changed compared to the prior study and therefore favor a mild multifocal pneumonia. A 3-[address] follow-up recommended to ensure resolution. ACT 112: Negative or not required by law. Electronically signed by: Vidal Keller M.D. 08/23/2023 10:54 AM
--- NOTE | 2023-08-25 15:22 | Electrocardiogram Report ---
Test Reason : Blood Pressure : / mmHG Vent. Rate : 098 BPM Atrial Rate : 098 BPM P-R Int : 154 ms QRS Dur : 110 ms QT Int : 396 ms P-R-T Axes : 028 035 095 degrees QTc Int : 505 ms Sinus rhythm with Premature supraventricular complexes RSR' or QR pattern in V1 suggests right ventricular conduction delay Nonspecific ST and T wave abnormality Prolonged QT Abnormal ECG When compared with ECG of 22-AUG-2023 22:13, ST no longer depressed in Inferior leads Nonspecific T wave abnormality, improved in Lateral leads Confirmed by Stanton Porter ([id number]) on 08/25/2023 3:22:21 PM Referred By: REFERRED SELF Confirmed By:Stanton Porter
[2023-08-25] MEDS ORDERED: WARFARIN SOD 5 MG TAB PO SCH (16:00)
[2023-08-26] MEDS: LEVALBUTEROL 1.25 MG/3 ML NEB NEB SCH ×2 (00:16→07:10)
[2023-08-26] MEDS: IPRATROPIUM BROMIDE NEB SOLN 0.02% 2.5 ML VIAL INH SCH ×2 (00:16→07:10)
[2023-08-26] MEDS: MELATONIN 3 MG TAB PO PRN (01:13)
[2023-08-26] MEDS: LORazepam 0.5 MG TAB PO PRN (01:13)
[2023-08-26] MEDS: AZTREONAM 2,000 MG in DEXTROSE 5% MINI-B 100 ML IV SCH (04:25)
[2023-08-26] MEDS: PANTOprazole 40 MG TAB PO SCH (05:36)
[2023-08-26 07:42] LABS: BUN Creatinine Ratio 18.6 (10-20); Calcium 9.5 mg/dl (8.6-10.3); Creatinine Clr Calc Pharmacy 149.2 ml/min; Est GFR (African American) 96.8 ml/min; Est GFR (Non-African American) 83.5 ml/min; Magnesium 1.7 mg/dl (1.7-2.4); Potassium 3.2 mmol/L (3.5-5.1)
[2023-08-26] MEDS: ASPIRIN 81 MG ECTAB PO SCH (07:52)
[2023-08-26] MEDS: SENNA 8.6 MG TAB PO PRN (07:52)
[2023-08-26] MEDS: METOPROLOL SUCC 25MG EXT REL TAB PO SCH (07:52)
[2023-08-26] MEDS: ADVANCED PROBIOTIC 1250 MG CAPSULE PO SCH (07:53)
[2023-08-26] MEDS: LINEZOLID 600 MG TAB PO SCH (07:53)
[2023-08-26] MEDS: ATORVASTATIN 40 MG TAB PO SCH (07:53)
[2023-08-26] MEDS: FINASTERIDE 5 MG TAB PO SCH (07:53)
[2023-08-26] MEDS: predniSONE 20 MG TAB PO SCH (07:53)
[2023-08-26] MEDS: FOLIC ACID 1 MG TAB PO SCH (07:53)
[2023-08-26] MEDS: TORSEMIDE 20 MG TAB PO SCH (07:54)
[2023-08-26] MEDS: FERROUS SULFATE 325 MG TAB PO SCH (07:55)
[2023-08-26] MEDS: TAMSULOSIN HCL 0.4 MG CAP PO SCH (07:55)
[2023-08-26] MEDS: ISOSORBIDE DINITRATE 10 MG TAB PO SCH (07:56)
[2023-08-26] MEDS: FLUTICASONE/VILANTEROL 100/25MCG 14 PUFFS/INHALER INH SCH (07:56)
[2023-08-26] MEDS: buprenorphine HCL 8 MG SUBL SL SCH (07:56)
[2023-08-26] MEDS: FAMOTIDINE 20 MG TAB PO SCH (07:56)
[2023-08-26] MEDS: SPIRONOLACTONE 25 MG TAB PO SCH (07:56)
[2023-08-26] MEDS: FLUTICASONE PROPIONATE NA SPR 16 GM BTL NAE SCH (07:57)
[2023-08-26] MEDS: SODIUM CHLORIDE 0.65% NA SOLN 45 ML (OCEAN) PRN (07:57)
[2023-08-26] MEDS ORDERED: ACETAMINOPHEN 1,000 MG/100 ML VIAL IV STA (08:13)
[2023-08-26] MEDS: POTASSIUM CHLORIDE CRTAB 20 MEQ TABCR PO SCH (08:46)
[2023-08-26] MEDS: POLYETHYLENE (MIRALAX) 17 GM PACK PO PRN (08:46)
[2023-08-26] MEDS: LANTUS PER UNIT CHARGE SQ SCH (09:54)
[2023-08-26] MEDS: INSULIN ASPART PER UNIT CHARGE SC SCH (09:54)
--- NOTE | 2023-08-26 12:30 | Discharge Summary ---
Date of Service August 26, 2023 Admission HPI Per Admitting Provider History obtained from patient and records. Limited history from patient secondary to lethargy Medical history significant for chronic diastolic heart failure (EF 60 to 65%, TTE 2022), history CAD/STEMI as per records, history subdural hematoma/subarachnoid hemorrhage as per records (no operative intervention), hypertension, hyperlipidemia, COPD, recurrent PE on Coumadin, DM 2 insulin requiring, recurrent UTIs secondary to BPH/chronic urinary retention indwelling Lloyd catheter, chronic anemia (baseline hemoglobin 13), chronic pain on buprenorphine, drug-seeking behavior as per records, ongoing tobacco abuse, hx MRSA/VRE. Monthly [facility] confinements the last few years. Last confinement last month for syncope, COPD exacerbation. Few days history of dry cough symptoms and shortness of breath. Not sure about sick contacts. Patient denies headache, chest pain, abdominal pain. Usual back pain complaints. Does not think he is retaining fluid. Patient called EMS to home. Lowest O2 sats of 80s documented at the ER. Medical history as above Surgical History : Foot/toe surgery, nerve repair, hand surgery, scalp neck wound injury Family History : Breast cancer, heart disease, COPD Personal/Social history : One pack daily, no EtOH intake, disabled Principal Diagnosis Metabolic encephalopathy CAUTI, POA COPD exacerbation Rhinovirus infection Multifocal pneumonia Discharge Exam General- oriented x 3, not in distress, speaks in sentences with no effort or accessory muscle use Eyes- anicteric Neck- no JVD Lungs-occasional wheeze. No crackles. Heart- normal rate, regular rhythm; no murmurs Abdomen- normal bowel sounds, nondistended, soft, nontender Lloyd catheter: Draining yellow urine Extremities- mild lower leg edema-no erythema/warmth/tenderness, no calf tenderness Neuro- alert, oriented x 3; no gross focal neurologic deficits Skin- warm & dry Discharge Data Allergies Allergy/AdvReac Type Severity Reaction Status Date / Time cefepime Allergy Intermediate rash Verified 08/22/23 22:47 daptomycin Allergy Intermediate rash Verified 08/22/23 22:47 fentanyl Allergy Intermediate RASH/HIVES/SKIN Verified 08/22/23 22:47 REDNESS acetaminophen [From Tylenol] AdvReac Intermediate IRRITATES Verified 08/22/23 22:47 & UPSET STOMACH ibuprofen AdvReac Intermediate Nausea Verified 08/22/23 22:47 naloxone AdvReac Intermediate extremely Verified 08/22/23 22:47 sick valproic acid AdvReac Intermediate PANCREATITS Verified 08/22/23 22:47 Consultations 08/23/23 00:23 ED Decision to Admit Stat Ordered Studies 08/23/23 07:57 CT chest diagnostic wo con Routine Hospital Course (1) Encephalopathy: Patient is a 52-year-old male with past medical history of chronic diastolic heart failure (EF 55 to 60%, TTE 2022), history CAD/STEMI as per records, history subdural hematoma/subarachnoid hemorrhage as per records (no operative intervention), hypertension, hyperlipidemia, COPD, recurrent PE on Coumadin, DM 2 insulin requiring, recurrent UTIs secondary to BPH/chronic urinary retention indwelling Lloyd catheter, chronic anemia (baseline hemoglobin 11-13), chronic pain on buprenorphine, presented to the ED with altered mental status. He was managed for the following condition during the hospitalization: Metabolic encephalopathy CAUTI, POA Urine culture was positive for Proteus vulgaris Lloyd catheter was changed on August 24, 2023 Patient was treated with IV antibiotics and placed on enoxaparin at discharge COPD exacerbation Rhinovirus infection Multifocal pneumonia Patient was treated with veffay-lun-nhzga DuoNebs, antibiotics, supplemental oxygen and steroids Patient's oxygenation improved throughout the hospitalization. Patient was back to his baseline oxygen requirement Patient was discharged home on oral antibiotics and a steroid taper Patient mentation was at baseline at discharge. Patient was recommended to follow-up with PCP and urology as outpatient. Please note the above document was generated using voice recognition software. It may contain grammatical, syntax or spelling errors. Any formal questions or concerns about the content, text or information contained within the body of this dictation should be directly addressed to the provider for clarification Total Time Total Time Spent Total Time Spent (In Minutes): 35 Total Time Includes: Examination of the Patient, Discharge Planning, Medication Reconciliation, Communication With Other Providers and Other Discharge Plan Discharge Items Patient Disposition: Home - Self-Care Reason For Visit: RESP FAILURE Discharge Diagnosis: Acute metabolic encephalopathy COPD exacerbation CAUTI, POA Activity: Resume your previous activity Non-emergency contact: Primary Care Provider Call non-emergency contact if: you have any medication questions Follow-up/Referrals: Roberto Askew MD [Primary Care Provider] - (Date & Time 08/31/2023 10:20 AM Provider Sylwia Luevano MD Department General Internal Medicine [facility] ) Diet: Regular Addtl Attending Provider Instructions: You were admitted to the hospital due to rhinovirus infection. You were also found to have mild pneumonia. You are prescribed Augmentin and doxycycline for 3 days more. Please keep distance with your family members for next 3 days and wear mask around them You are prescribed prednisone. Take 20 mg for 3 days and then 10 mg for 4 more days for total of 7 days. You are prescribed budesonide nebulizer solution to be taken twice daily. Please change your Lloyd catheter every 4 weeks. It was exchanged here on August 24, 2023. Next exchange will be around September 20 or September 21, 2023 Please follow-up with your primary care doctor. An appointment will be set up for you. Pending Studies at Discharge: No Stand-Alone Forms: [facility], Sm[facility] Cess[facility] Medications and DC Order Prescriptions: New budesonide 0.5 mg/2 mL suspension for nebulization 0.5 mg inhalation Q12H Qty: 60 0RF amoxicillin-pot clavulanate 875-125 mg tablet 1 tab PO Q12H 3 Days Qty: 6 0RF doxycycline hyclate 100 mg capsule 100 mg PO Q12H 3 Days Qty: 6 0RF prednisone 10 mg tablet See Taper PO DAILY Qty: 10 0RF Taper: Taper, Blank 20 mg DAILY for 3 Days 10 mg DAILY for 4 Days Continued tamsulosin [Flomax] 0.4 mg capsule 0.8 mg PO QAM Qty: 180 3RF polyethylene glycol 3350 [Miralax] 17 gram powder in packet 17 g PO QAM PRN (Reason: Constipation) nitroglycerin [Nitrostat] 0.4 mg tablet, sublingual 0.4 mg Sublingual DIRECTED PRN (Reason: CHEST PAIN) Rx Instructions: PLACE ONE TABLET UNDER THE TONGUE EVERY 5 MINUTES FOR UP TO 3 DOSES OVER 15 MINUTES IF NEEDED FOR CHEST PAIN nystatin 100,000 unit/gram Powder 1 applic TOPICAL TID PRN (Reason: Skin Irritation) Rx Instructions: APPLY DIRECTED TO ABDOMINAL FOLDS cyclobenzaprine 10 mg Tablet 10 mg PO BID PRN (Reason: Muscle Spasm) docusate sodium 100 mg Capsule 100 mg PO BID PRN (Reason: Constipation) duloxetine 60 mg capsule,delayed release(DR/EC) 60 mg PO DAILY famotidine 20 mg tablet 20 mg PO DAILY aspirin [Ecotrin Low Strength] 81 mg tablet,delayed release (DR/EC) 81 mg PO QAM finasteride 5 mg tablet 5 mg PO QAM metoprolol succinate 50 mg Tablet Extended Release 24 Hr 75 mg PO BID spironolactone 25 mg Tablet 25 mg PO QAM atorvastatin 80 mg tablet 80 mg PO QAM sennosides [senna] 8.6 mg Tablet 8.6 mg PO DAILY PRN (Reason: Constipation) folic acid 1 mg Tablet 1 mg PO QAM albuterol sulfate 90 mcg/actuation Hfa Aerosol Inhaler 2 puff INHALATION Q4 PRN (Reason: Dyspnea) omeprazole 20 mg Capsule,Delayed Release(Dr/Ec) 20 mg PO DAILYBB gabapentin 800 mg tablet 800 mg PO TID Rx Instructions: MAY INCREASE TO 1,600 MG TID PER GMG. glipizide 10 mg tablet 10 mg PO BID urea [Ureacin-20] 20 % Cream 1 applic TOPICAL BID magnesium oxide 400 mg (241.3 mg magnesium) tablet 400 mg PO DAILY ferrous sulfate 325 mg (65 mg iron) Tablet 325 mg PO QAM Rx Instructions: Take with breakfast hydroxyzine HCl 25 mg Tablet 25 mg PO QID PRN (Reason: Anxiety) ondansetron HCl 4 mg Tablet 4 mg PO Q8H PRN (Reason: NAUSEA/VOMITING) benzonatate 100 mg Capsule 100 mg PO TID PRN (Reason: cough) Qty: 10 0RF warfarin 5 mg tablet 0 mg PO DAILY Hold Instructions: Resume on 07/27/23. Discuss with Coumadin Clinic for dosing Rx Instructions: TAKES DIRECTED BY ANTI COAG. torsemide 100 mg tablet 50 mg PO DAILY metolazone 2.5 mg Tablet 2.5 mg PO 3XWK Rx Instructions: MON, WED, & FRI. fluticasone propion-salmeterol [Advair Diskus] 250-50 mcg/dose Blister With Device 1 inh INHALATION BID ipratropium-albuterol 0.5 mg-3 mg(2.5 mg base)/3 mL Solution For Nebulization 3 ml INHALATION TID codeine-guaifenesin 10-100 mg/5 mL Syrup 5 ml PO TID PRN (Reason: Cough) Mucinex DM 30-600 mg Tablet Extended Release 12 Hr 1 tab PO Q12H PRN (Reason: Cough) fluticasone propionate 93 mcg/actuation Aerosol Breath Activated 2 spray INTRANASAL DAILY Rx Instructions: into each nostril Lactinex 1 million cell tablet,chewable 1 tab PO TID Qty: 30 0RF isosorbide dinitrate 30 mg tablet 30 mg PO DAILY lorazepam 0.5 mg tablet 0.5 mg PO Q8 PRN (Reason: Anxiety) Qty: 6 0RF potassium chloride 20 mEq tablet extended release 20 meq PO BID insulin aspart U-100 [Novolog FlexPen U-100 Insulin] 100 unit/mL (3 mL) insulin pen 0 sliding scale dose subcut TIDM Rx Instructions: take before meal insulin glargine [Lantus U-100 Insulin] 100 unit/mL solution 50 unit SC HS buprenorphine HCl 8 mg tablet, sublingual See Rx Instructions .ROUTE .COMPLEX Rx Instructions: 8 mg sublingually ;Pt takes 20mg total a day: 8mg in AM, 4mg at 1400 and 8mg with evening medications Discharge Orders: Discharge Order (Routine); Ordered 08/26/23 Ordered By: Armando Pickering/Other Patient Handouts: Managing Type 2 Diabetes Admission Data Admit Date/Time: 08/23/23 01:07 Attending Provider: Armando Rojas Admit Provider: Waldemar Galarza Primary Care Provider: Roberto Askew Other Providers: Waldemar Galarza; Romulo Clark Other Interventions: Discharge Summary Assessment (RN) Last Done: 08/26/23 10:07
== END 2023-08-26 10:36 | disposition home or self-care (01) | DRG 698 ==
LOC: ED 21:57 → EDINP 08-23 01:07 → SUATTDRO 08-23 01:07 → 2N 08-23 02:51

== ENCOUNTER 2023-09-19 17:01 | Inpatient (IN) ==
--- OUTSIDE RECORDS SUMMARY | 2023-09-19 17:09 | External Medical Summary ---
Author Name Unknown Address Unknown Organization [id number] [address] [place] [address] Laboratory Report Ordering Provider Test Date Status ABATULIO 09/07/2023 07:50:00 Final Standing order for pt/inr. < br/>Please draw pt/inr every 1 to 4 weeks as requested
Results to [facility]

Warfarin Therapy
INR: 2.0-3.0 conventional anticoagulation
INR: 2.5-3.5 high intensity anticoagulation Observation Date Value Abnormality Reference (Units ) Status PT 09/07/2023 07:50:00 20.1 Above high normal 11 .6-15.2 (seconds) Final INR 09/07/2023 07:50:00 1.7 Above high normal 0. 8-1.2 Final Performing Location [facility] [address] [place] [address]
--- OUTSIDE RECORDS SUMMARY | 2023-09-19 17:09 | External Medical Summary | Summary of Care ---
Author Name Unknown Organization [facility] Address [address] [place] [address] Phone [phone] Care Team Providers Care Prop Maker Name Role Phone Roberto Askew MD Primary Care Provider + Reason for Visit * Reason Onset Date Comments Medication Refill 09/02/2023 Encounter Details Date Type Department Care Team (Late st Contact Info) Description 09/02/2023 Refill General Internal Medicine [facility] [address] [place] [address] Roberto Askew MD [address] [place] [address] Allergies Active Allergy Reactions Criticality Noted Date [...] as of this encounter (statuses as of 09/08/2023) Medications Medication Sig Dispensed Refills Start Date [...] day as needed. 0 Active nystatin (NYSTOP) 913382 UNIT/GM powderIndications:Cu taneous candidiasis Apply topically to [...] C, by GOLD 2017 classification ([facility]),COPD, group D, by GOLD 2017 classification ([facility]) USE 2 PUFFS BY MOUTH EVERY 4 HOURS NEEDED SHORT OF BREATH 6.7 g 5 11/24/2021 Active Magnesium Oxide 400 (241.3 Mg) MG Oral TabletIndications:Co ronary artery disease involving [place] coronary artery of [place] heart without angina pectoris Take by mouth [...] for Anxiety. 21 Tablet 0 09/30/2022 Active Ondansetron HCl 4 MG Oral Tablet [...] MG Oral TabletIndications:Co ronary artery disease involving [place] coronary artery of [place] heart without angina pectoris Take 1 Tablet by mouth in the morning. In the morning.. 90 Tablet 1 04/05/2023 Active Metoprolol Succinate ER 50 MG Oral Tablet Extended Release 24 Hour (toPROL XL)Indications:Coron uziel artery disease involving [place] coronary artery of [place] heart without angina pectoris TAKE 1 & [...] WEDNESDAY ONLY. 39 Tablet 1 05/10/2023 Active Potassium Chloride Terra ER 20 MEQ Oral Tablet Extended ReleaseIndications:H ypokalemia TAKE ONE TABLET EVERY MORNING AND AT BEDTIME 180 Tablet 2 05/11/2023 Active Lactobacillus Probiotic Oral Tablet Take 3 Billion Cells by mouth in the morning. For 10 days. 0 05/26/2023 Active Cyclobenzaprine HCl 10 [...] BEFORE MEALS 180 Tablet 1 07/22/2023 Active Budesonide 0.25 MG/2ML Inhalation Suspension (Pulmicort) Inhale 0.5 mg via nebulizer in the morning and 0.5 mg in the evening. 0 07/27/2023 Active predniSONE 10 MG Oral Tablet (Deltasone) Take 1 Tablet by mouth in the morning. Follow taper directions. 0 08/26/2023 Active Tamsulosin HCl 0.4 MG Oral Capsule (Flomax) TAKE 2 CAPSULES EVERY MORNING 180 Capsule 0 08/31/2023 Active True Metrix Meter w/Device KitIndications:Type 2 diabetes mellitus with hemoglobin A1c goal of less than 8.0% (HCC) Use 3 times daily as directed 1 Kit 0 08/31/2023 Active True Metrix Blood Glucose Test In Vitro Strip (Glucose Blood)Indications:Ty pe 2 diabetes mellitus with hemoglobin A1c goal of less than 8.0% (HCC) Use 3 times daily as directed 300 Strip 3 08/31/2023 Active TRUEplus Lancets 33GIndications:Type 2 diabetes mellitus with hemoglobin A1c goal of less than 8.0% (HCC) Use 3 times daily as directed 300 Each 3 08/31/2023 Active BD Swab Single Use Regular Pad Use 3 times daily as directed 300 Each 3 08/31/2023 Active True Metrix Level 1 Low In Vitro Solution Use as directed 1 Each 0 08/31/2023 Active Torsemide 100 MG Oral Tablet (Demadex) Take 0.5 Tablets by mouth in the morning. 15 Tablet 1 08/31/2023 Active documented as of this encounter (statuses as of 09/08/2023) Active Problems Problem Noted Date Diagnosed Date [...] 01/24/2021 Opioid dependence, uncomplicated 01/22/[address] (myocardial infarction) 01/22/2021 Morbid obesity with BMI of 50.0-59.9, adult 09/20 History of subdural hematoma 10/04/2020 Gastroesophageal reflux disease without esophagi tis 10/04/2020 History of subarachnoid hemorrhage 10/04/2020 Coronary artery disease invo lving [place] heart without angina pectoris 10/04/2020 COPD, group [...] as of this encounter (statuses as of 09/08/2023) Resolved Problems Problem Noted Date Diagnosed Date [...] Calculus of kidney 08/20/2015 8 Overview: right, [place] Vitamin D deficiency 01/31/2015 018 Body [...] as of this encounter (statuses as of 09/08/2023) Immunizations Name Administration Dates Next Due COVID-19 mRNA, LNP-s, No Pre serve, 2-Dose Series ([employer]) 01/02/2021,12/05/2020 DTP Vaccine 07/19/2017,04/03/2014 Hepatitis B, [...] Care Team (Late st Contact Info) Description 09/22/2023 6:00 AM EST Anticoagulation Pharmacy Call Center [phone] [facility] [place] [address] [facility] [address] [facility] [place] [address] Health Maintenance Due Date Last Done Comments DISCUSS TOBACCO CESSATION (REFER TO SMARTSET #0861) 1970 HIV Screening 1985 O2 ASSESSMENT COMPLETED IN PAST YEAR FOR COPD 1988 Pneumococcal Vaccine: Pediatrics (0 to 5 Years) and At-Risk Patients (6 to 64 Years) (2 - PCV) 05/22/2010 05/22/2009 Cologuard 2015 Fecal Occult Blood Test 2015 Sigmoidoscopy 2015 *ADVANCE DIRECTIVE NOT ON FILE 02/03/2020 LUNG CANCER SCREENING - USE SMARTSET 49801 2020 02/10/2019, 07/19/2017, 05/09/2017, Additional history exists [...] this encounter Medical Devices Implanted Type Area [employer] Wireless Manager Device Identifier Shelf Expiration Date Model / Serial / Lot Tube Flex 3.0x2.5 [id number] - [id number] Implanted:Qty: 1 on 12/07/2014 by Juancarlos Trinidad MD at OR [facility] [place] Left: Finger [employer] : ORTHOPAEDICS 11/18/2015 [id number] / / [id number] documented as of this encounter Advance Directives [...] the patient have Health Care Power of Income Tax Consultant? No Healthcare Agents on File Name Relationship Healthcare Agent Relationship Communication Estrella Seth Other - (no specific identity) Health Care Power of Income Tax Consultant Care Teams Prop Maker Relationship Specialty Start Date End Date Roberto Askew MD [address] [place] [address] PCP - General Internal Medicine 04/10/20 documented as of this encounter
--- OUTSIDE RECORDS SUMMARY | 2023-09-19 17:09 | External Medical Summary ---
Author Name Unknown Address Unknown Organization [facility] [address] [place] [address] Laboratory Report Ordering Provider Test Date Status [place] 09/07/2023 07:50:00 Final Observation Date Value Abnormality Reference (Units ) Status Nucleated erythrocytes/100 leukocytes [Ratio] in Blood by Automated count 09/07/2023 07:50:00 Final Ovalocytes [Presence] in Blood by Light microscopy 09/07/2023 07:50:00 Moderate Abnormal None Seen Final Performing Location [facility] [address] [place] [address]
--- OUTSIDE RECORDS SUMMARY | 2023-09-19 17:09 | External Medical Summary ---
Author Name Unknown Address Unknown Organization [facility] [address] [place] [address] Laboratory Report Ordering Provider Test Date Status [place] 09/07/2023 07:50:00 Final Observation Date Value Abnormality Reference (Units ) Status SYNC LEUKOCYTES IN BLOOD BY AUTOMATED COUNT 09/07/2023 07:50:00 17.83 Above high normal 4.00-10.80 (K/uL) Final Segs 09/07/2023 07:50:00 64.4 40.0-75.0 (%) Final Lymphs % 09/07/2023 07:50:00 23.8 18.0-42.0 (%) Final Monos 09/07/2023 07:50:00 7.6 1.0-11.0 (%) Final Eosinophils 09/07/2023 07:50:00 4.0 0.0-6.0 (%) Final Basos 09/07/2023 07:50:00 0.2 0.0-2.0 (%) Final Absolute Segs 09/07/2023 07:50:00 11.47 Above high normal 1.80-7.70 (K/uL) Final Lymphs, absolute 09/07/2023 07:50:00 4.25 1.00-4.80 (K/ul) Final Monos, Abs 09/07/2023 07:50:00 1.35 Above high normal 0.00-1.10 (K/uL) Final Eos, Abs 09/07/2023 07:50:00 0.72 Above high normal 0.00-0.70 (K/uL) Final Basos, Abs 09/07/2023 07:50:00 0.04 0.00-0.20 (K/uL) Final Performing Location [facility] [place] [address]
--- OUTSIDE RECORDS SUMMARY | 2023-09-19 17:09 | External Medical Summary | Summary of Care ---
Author Name Unknown Organization [facility] Address [address] [place] [address] Phone [phone] Care Team Providers Care Sustainable Systems Analyst Name Role Phone Roberto Askew MD Primary Care Provider + Reason for Visit * Reason Comments Dosage Adjustment Via Phone (anticoag Cl inic) Encounter Details Date Type Department Care Team (Latest Contact Info) Description 09/08/2023 6:00 AM EST Anticoagulation Pharmacy Call Center [phone] [place] [address] [facility] [address] [facility] [place] [address] History of pulmonary embolism* Allergies Active Allergy [...] day as needed. 0 Active nystatin (NYSTOP) 181450 UNIT/GM powderIndications:Cu taneous candidiasis Apply topically to [...] MG Oral TabletIndications:Co ronary artery disease involving [place] coronary artery of [place] heart without angina pectoris Take by mouth [...] MG Oral TabletIndications:Co ronary artery disease involving [place] coronary artery of [place] heart without angina pectoris Take 1 Tablet by mouth in the morning. In the morning.. 90 Tablet 1 04/05/2023 Active Metoprolol Succinate ER 50 MG Oral Tablet Extended Release 24 Hour (toPROL XL)Indications:Coron uziel artery disease involving [place] coronary artery of [place] heart without angina pectoris TAKE 1 & [...] than 8.0% ([facility]) Use 3 times daily as directed 1 [...] than 8.0% ([facility]) Use 3 times daily as directed 300 Each 3 08/31/2023 Active BD Swab Single Use Regular Pad Use 3 times daily as directed 300 Each 3 08/31/2023 Active True Metrix Level 1 Low In Vitro Solution Use as directed 1 Each 0 08/31/2023 Active Torsemide 100 MG Oral Tablet (Demadex) Take 0.5 Tablets by mouth in the morning. 15 Tablet 1 08/31/2023 Active Atorvastatin Calcium 80 MG Oral Tablet (Lipitor) TAKE 1 TABLET BY MOUTH IN THE AFTERNOON. 90 Tablet 1 09/06/2023 Active documented as of this encounter (statuses [...] hemorrhage 10/04/2020 Coronary artery disease invo lving [place] heart without angina pectoris 10/04/2020 COPD, group [...] Calculus of kidney 08/20/2015 8 Overview: right, [place] CT Vitamin D deficiency 01/31/2015 018 Body [...] mRNA, LNP-s, No Pre serve, 2-Dose Series (LiveData) 01/02/2021,12/05/2020 DTP Vaccine 07/19/2017,04/03/2014 Hepatitis B, 20+ [...] as of this encounter Progress Notes * Aarti Caballero PHARM Tech - 09/08/2023 8:18 AM EST Contacts Type Contact Phone/Fax 09/08/2023 08:16 AM EST Phone (Outgoing) Stanton Milner (Self) [phone] (H) Left Message Subjective Advised patient to contact Anticoagulation Clinic if any unusual bruising or bleeding, recent illness, changes in medication, or questions/concerns. PT/INR results, Coumadin dose instructions, and next PT/INR date communicated as noted by Pharmacist: Yes ARTEM JEFFRIES 09/08/2023, 8:18 AM * Keren Sanchze RP - 09/08/2023 7:57 AM EST Coumadin Clinic (region specific) Objective Current Warfarin Dose As of 09/08/2023 Warfarin maintenance plan: 5 mg (5 mg x 1) every Wed, Fri; 2.5 mg (5 mg x 0.5) all other days INR Result As of 09/08/2023 INR goal: 2.0-3.0 INR used for dosin.7 (09/07/2023) Assessment & Plan Warfarin Plan As of 09/08/2023 Full warfarin instructions: 09/08: 10 mg; Otherwise 5 mg every Wed, Fri; 2.5 mg all other days Next INR check: 09/21/2023 Repeat PT/INR in 2 week(s) Weekly dose: not changed Additional Dosing Information: Description [facility]) - pt prefers [facility] at this time Tech to contact patient with dose instructions as noted. Keren Sanchez RPh 09/08/2023, 7:57 AM documented in this encounter Plan of Treatment Upcoming Encounters Date Type Department Care Team (Late st Contact Info) Description 09/22/2023 6:00 AM EST Anticoagulation Pharmacy Call Center WB [phone] [facility] [place] [address] [facility] [address] [facility] [place] [address] Health Maintenance Due Date Last Done Comments DISCUSS TOBACCO CESSATION (REFER TO SMARTSET #9090) 1970 HIV Screening 1985 O2 ASSESSMENT COMPLETED IN PAST YEAR FOR COPD 1988 Pneumococcal Vaccine: Pediatrics (0 to 5 Years) and At-Risk Patients (6 to 64 Years) (2 - PCV) 05/22/2010 05/22/2009 Cologuard 2015 Fecal Occult Blood Test 2015 Sigmoidoscopy 2015 *ADVANCE DIRECTIVE NOT ON FILE 02/03/2020 LUNG CANCER SCREENING - USE SMARTSET [id number] 2020 02/10/2019, 07/19/2017, 05/09/2017, Additional history exists [...] encounter Medical Devices Implanted Type Area Assistant Baseball Coach Device Identifier Shelf Expiration Date Model / Serial / Lot Tube Flex 3.0x2.5 [id number] - [id number] Implanted:Qty: 1 on 12/07/2014 by Juancarlos Trinidad MD at OR [facility] Left: Finger [employer]ANDON : ORTHOPAEDICS 11/18/2015 [id number] / / [id number] documented as of this encounter Visit Diagnoses [...] the patient have Health Care Power of Molded Goods Embossing Press Operator? No Healthcare Agents on File Name Relationship Healthcare Agent Relationship Communication Estrella Seth Other - (no specific identity) Health Care Power of Molded Goods Embossing Press Operator Care Teams Sustainable Systems Analyst Relationship Specialty Start Date End Date Roberto Askew MD [address] [place] [address] PCP - General Internal Medicine 04/10/20 documented as of this encounter
--- OUTSIDE RECORDS SUMMARY | 2023-09-19 17:09 | External Medical Summary | Summary of Care ---
Author Name Unknown Organization [facility] Address [address] [place] [address] Phone [phone] Care Team Providers Care Principal Librarian Name Role Phone Roberto Askew MD Primary Care Provider + Reason for Visit * Reason Onset Date Comments Test Results 09/08/2023 Med Request 09/08/2023 Encounter Details Date Type Department Care Team (Late st Contact Info) Description 09/08/2023 Telephone General Internal Medicine [facility] [address] [place] [address] Roberto Askew MD [address] [place] [id number] Test Results; Med Request Allergies Active Allergy Reactions Criticality Noted Date [...] as of this encounter (statuses as of 09/10/2023) Medications Medication Sig Dispensed Refills Start Date [...] day as needed. 0 Active nystatin (NYSTOP) 850538 UNIT/GM powderIndications:Cu taneous candidiasis Apply topically to [...] COPD, group C, by GOLD 2017 classification ([facility]),COPD, group D, by GOLD 2017 classification ([facility]) USE 2 PUFFS BY MOUTH EVERY 4 HOURS NEEDED SHORT OF BREATH 6.7 g 5 11/24/2021 Active Magnesium Oxide 400 (241.3 Mg) MG Oral TabletIndications:Co ronary artery disease involving [place] coronary artery of [...] MG Oral TabletIndications:Co ronary artery disease involving [place] coronary artery of [place] heart without angina pectoris Take 1 Tablet by mouth in the morning. In the morning.. 90 Tablet 1 04/05/2023 Active Metoprolol Succinate ER 50 MG Oral Tablet Extended Release 24 Hour (toPROL XL)Indications:Coron uziel artery disease involving [place] coronary artery of [...] of less than 8.0% ([facility]) Use 3 times daily as directed 1 Kit 0 08/31/2023 Active True Metrix Blood Glucose Test In Vitro Strip (Glucose Blood)Indications:Ty pe 2 diabetes mellitus with hemoglobin A1c goal of less than 8.0% ([facility]) Use 3 times daily as directed 300 Strip 3 08/31/2023 Active TRUEplus Lancets 33GIndications:Type 2 diabetes mellitus with hemoglobin A1c goal of less than 8.0% ([facility]) Use 3 times daily as directed 300 [...] as of this encounter (statuses as of 09/10/2023) Active Problems Problem Noted Date Diagnosed Date [...] 01/24/2021 Opioid dependence, uncomplicated 01/22/2021 History of MS (myocardial infarction) 01/22/2021 Morbid obesity with BMI of 50.0-59.9, adult 09/20 History of subdural hematoma 10/04/2020 Gastroesophageal reflux disease without esophagi tis 10/04/2020 History of subarachnoid hemorrhage 10/04/2020 Coronary artery disease invo lving [place] heart without angina pectoris 10/04/2020 COPD, [...] as of this encounter (statuses as of 09/10/2023) Resolved Problems Problem Noted Date Diagnosed Date [...] Calculus of kidney 08/20/2015 8 Overview: right, [place] CT Vitamin D deficiency 01/31/2015 018 Body mass index (BMI) of 40.0-44.9 in adult 01/30/2015 06/24/2017 Overview: bmi= 42.71 01/30/15 ICD-10 update of inactive term Tobacco use disorder 01/30/2015 015 Pilar cyst 01/30/2015 02/01/2018 Depression 11/26/2014 07/16/2015 Persistent insomnia 11/26/2014 01/15/20 18 Moderate COPD (chronic obstr uctive pulmonary [...] as of this encounter (statuses as of 09/10/2023) Immunizations Name Administration Dates Next Due COVID-19 mRNA, LNP-s, No Pre serve, 2-Dose Series ([employer]) 01/02/2021,12/05/2020 DTP Vaccine 07/19/2017,04/03/2014 Hepatitis B, 20+ [...] Telephone Encounter - Kimmy Hill RN - 09/10/2023 11:49 AM EST Contacted patient and explained that Dr. Askew suggests urgent care or the weekend clinic to be evaluated. Patient asked for a video visit, I explained this would not work as he needs to be examined. Patient stated that he would see if he could get a ride. * Telephone Encounter - Roberto Askew MD - 09/10/2023 11:44 AM EST He needs to be seen, here, [facility] for assessment. * Telephone Encounter - Kimmy Hill, ALEXANDER - 09/10/2023 11:40 AM EST Patient called stating that he believes he has a UTI due to foul smelling urine and would like Dr. Askew to prescribe him an antibiotic. I told him that since he has not been seen in the office for so long, I was not sure if the Doctor would prescribe him any medications but that I would ask and let him know. * Telephone Encounter - Alexa Fink CMA - 09/08/2023 9:20 AM EST Called, left message for patient to return call. * Telephone Encounter - Alexa Fink CMA - 09/08/2023 9:18 AM EST ----- Message from Roberto Askew MD sent at 09/08/2023 8:31 AM EST ----- Wbc high, could be from recent infection or steroid use Lft ok He needs a visit to discuss labs, recent hospitalization, I can not continue to prescribe meds if doesn't schedule soon documented in this encounter Plan of Treatment Upcoming Encounters Date Type Department Care Team (Late st Contact Info) Description 09/21/2023 9:10 AM EST Laboratory Lab Mobile Phlebotomy [facility] [address] [place] [address] [facility], [facility] Mobile Home Draw [address] [place] [address] 09/22/2023 6:00 AM EST Anticoagulation Pharmacy Call Center [phone] [facility] [place] [address] [facility], [facility] [address] [facility] [place] [address] Health Maintenance Due Date Last Done Comments DISCUSS TOBACCO CESSATION (REFER TO SMARTSET #0080) 1970 HIV Screening 1985 O2 ASSESSMENT COMPLETED IN PAST YEAR FOR COPD 1988 Pneumococcal Vaccine: Pediatrics (0 to 5 Years) and At-Risk Patients (6 to 64 Years) (2 - PCV) 05/22/2010 05/22/2009 Cologuard 2015 Fecal Occult Blood Test 2015 Sigmoidoscopy 2015 *ADVANCE DIRECTIVE NOT ON FILE 02/03/2020 LUNG CANCER SCREENING - USE SMARTSET [id number] 2020 02/10/2019, 07/19/2017, 05/09/2017, Additional history exists [...] this encounter Medical Devices Implanted Type Area Field Professional Device Identifier Shelf Expiration Date Model / Serial / Lot Tube Flex 3.0x2.5 [id number] - [id number] Implanted:Qty: 1 on 12/07/2014 by Juancarlos Trinidad MD at [facility] Left: Finger [employer]ON : ORTHOPAEDICS 11/18/2015 [id number] / / [id number] documented as of this encounter Advance Directives [...] the patient have Health Care Power of Resin Mixer? No Healthcare Agents on File Name Relationship Healthcare Agent Relationship Communication Estrella Seth Other - (no specific identity) Health Care Power of Resin Mixer Care Teams Principal Librarian Relationship Specialty Start Date End Date Roberto Askew MD [address] [place] [address] PCP - General Internal Medicine 04/10/20 documented as of this encounter
--- OUTSIDE RECORDS SUMMARY | 2023-09-19 17:09 | External Medical Summary | Summary of Care ---
Author Name Unknown Organization [facility] Address [address] [place] [address] Phone [phone] Care Team Providers Care Automobile Lights Assembler Name Role Phone Roberto Askew MD Primary Care Provider + Reason for Visit * Reason Onset Date Comments Medication Refill 09/09/2023 Encounter Details Date Type Department Care Team (Late st Contact Info) Description 09/09/2023 Refill General Internal Medicine [facility] [address] [place] [address] Roberto Askew MD [address] [place] [address] Type 2 diabetes mellitus with hemoglobin A1c goal of less than 8.0% ([facility]) Allergies Active Allergy Reactions Criticality Noted Date [...] as of this encounter (statuses as of 09/09/2023) Medications Medication Sig Dispensed Refills Start Date [...] day as needed. 0 Active nystatin (NYSTOP) 142433 UNIT/GM powderIndications:Cu taneous candidiasis Apply topically to [...] COPD, group C, by GOLD 2017 classification ([facility]),COPD, group D, by GOLD 2017 classification ([facility]) USE 2 PUFFS BY MOUTH EVERY 4 HOURS NEEDED SHORT OF BREATH 6.7 g 5 11/24/2021 Active Magnesium Oxide 400 (241.3 Mg) MG Oral TabletIndications:Co ronary artery disease involving [place] coronary artery of [place] heart without angina pectoris Take by mouth [...] MG Oral TabletIndications:Co ronary artery disease involving [place] coronary artery of [place] heart without angina pectoris Take 1 Tablet by mouth in the morning. In the morning.. 90 Tablet 1 04/05/2023 Active Metoprolol Succinate ER 50 MG Oral Tablet Extended Release 24 Hour (toPROL XL)Indications:Coron uziel artery disease involving [place] coronary artery of [place] heart without angina pectoris TAKE 1 & [...] hemoglobin A1c goal of less than 8.0% ([facility]) Use 3 times daily as directed 1 Kit 0 08/31/2023 Active True Metrix Blood Glucose Test In Vitro Strip (Glucose Blood)Indications:Ty pe 2 diabetes mellitus with hemoglobin A1c goal of less than 8.0% ([facility]) Use 3 times daily as directed 300 Strip 3 08/31/2023 Active TRUEplus Lancets 33GIndications:Type 2 diabetes mellitus with hemoglobin A1c goal of less than 8.0% ([facility]) Use 3 times daily as directed [...] as of this encounter (statuses as of 09/09/2023) Active Problems Problem Noted Date Diagnosed Date [...] hemorrhage 10/04/2020 Coronary artery disease invo lving [place] de[place] heart without angina pectoris 10/04/2020 COPD, group [...] as of this encounter (statuses as of 09/09/2023) Resolved Problems Problem Noted Date Diagnosed Date [...] Calculus of kidney 08/20/2015 8 Overview: right, [place] CT Vitamin D deficiency 01/31/2015 018 Body [...] as of this encounter (statuses as of 09/09/2023) Immunizations Name Administration Dates Next Due COVID-19 mRNA, LNP-s, No Pre serve, 2-Dose Series (TMMI ([employer])) 01/02/2021,12/05/2020 DTP Vaccine 07/19/2017,04/03/2014 Hepatitis B, 20+ [...] Telephone Encounter - Yanique Marrufo LPN - 09/09/2023 5:42 PM EST Sent last week. * Telephone Encounter - Tyree Ceballos OSA - 09/09/2023 1:42 PM EST Did you pend patient's preferred pharmacy and medication before forwarding?yes Pharmacy: [facility] [address]- [place] Pending Prescriptions: Disp Refills True Metrix Level 1 Low In Vitro Solution 1 Each 0 Sig: Use as directed TRUEplus Lancets 33G 300 Ea*3 Sig: Use 3 times daily as directed Last Visit: 08/10/2022 (in office), 12/10/2021 (telemedicine) Next Visit: Visit date not found If no future appointments scheduled, and last appointment is greater than a year ago, please schedule patient for a follow-up appointment Last date the medication was ordered: 08/31/2023 Is this request for a controlled substance?No [...] AM LDLDIRECT 84 10/04/2017 01:15 PM ALT 19 09/07/2023 07:50 AM ALT 23 10/08/2020 08:05 AM HGBA1C 6.9 (H) 03/19/2022 06:48 AM HGBA1C 8.8 (H) 10/08/2020 08:05 AM documented in this encounter Plan of Treatment Upcoming Encounters Date Type Department Care Team (Late st Contact Info) Description 09/21/2023 9:10 AM EST Laboratory Lab Mobile Ph[facility]omy [facility] [address] [place] [address] [facility], [facility] Mobile Home Draw [address] [place] [address] 09/22/2023 6:00 AM EST Anticoagulation Pharmacy Call Center [address] [facility] [place] [address] [facility] [address] [facility] [place] [address] Health Maintenance Due Date Last Done Comments DISCUSS TOBACCO CESSATION (REFER TO SMARTSET #8531) 1970 HIV Screening 1985 O2 ASSESSMENT COMPLETED IN PAST YEAR FOR COPD 1988 Pneumococcal Vaccine: Pediatrics (0 to 5 Years) and At-Risk Patients (6 to 64 Years) (2 - PCV) 05/22/2010 05/22/2009 Cologuard 2015 Fecal Occult Blood Test 2015 Sigmoidoscopy 2015 *ADVANCE DIRECTIVE NOT ON FILE 02/03/2020 LUNG CANCER SCREENING - USE SMARTSET [id number] 2020 02/10/2019, 07/19/2017, 05/09/2017, Additional history exists [...] this encounter Medical Devices Implanted Type Area Buyer Liaison Device Identifier Shelf Expiration Date Model / Serial / Lot Tube Flex 3.0x2.5 [id number] - [id number] Implanted:Qty: 1 on 12/07/2014 by Juancarlos Trinidad MD at [facility] Left: Finger [employer]ON : ORTHOPAEDICS 11/18/2015 [id number] / / [id number] documented as of this encounter Visit Diagnoses Diagnosis Type 2 diabetes mellitus with hemoglobin A1c goal of less than 8.0% ([facility]) documented in this encounter Advance Directives Latest [...] the patient have Health Care Power of Laser Beam Color Scanner Operator? No Healthcare Agents on File Name Relationship Healthcare Agent Relationship Communication Estrella Seth Other - (no specific identity) Health Care Power of Laser Beam Color Scanner Operator [phone] ([place]) Care Teams Automobile Lights Assembler Relationship Specialty Start Date End Date Roberto Askew MD [address] [facility] [place] [address] PCP - General Internal Medicine 04/10/20 documented as of this encounter
--- OUTSIDE RECORDS SUMMARY | 2023-09-19 17:10 | External Medical Summary | Summary of Care ---
Author Name Unknown Organization [facility] Address [address] [place] [address] Phone [phone] Care Team Providers Care Renewable Energy Trader Name Role Phone Roberto Griffin MD Primary Care Provider + Reason for Visit * Reason Comments eRx-Medication Refill Encounter Details Date Type Department Care Team (Late st Contact Info) Description 08/30/2023 Refill General Internal Medicine [facility] [address] [place] [address] Roberto Griffin MD [address] [place] [address] Allergies Active Allergy Reactions Criticality Noted Date [...] as of this encounter (statuses as of 08/31/2023) Medications Medication Sig Dispensed Refills Start Date [...] day as needed. 0 Active nystatin (NYSTOP) 974564 UNIT/GM powderIndications:C utaneous candidiasis Apply topically to [...] C, by GOLD 2017 classification ([facility]),COPD, group D, by GOLD 2017 classification ([facility]) USE 2 PUFFS BY MOUTH EVERY 4 HOURS NEEDED SHORT OF BREATH 6.7 g 5 2 Active Magnesium Oxide 400 (241.3 Mg) MG Oral TabletIndications:C oronary artery disease involving [place] coronary artery of [place] heart without angina pectoris Take by mouth [...] goal of less than 8.0% ([facility]) Use as directed. 1 Kit 0 3 Active Accu-Chek Guide In Vitro Strip (Glucose Blood)Indications:T ype 2 diabetes mellitus with hemoglobin A1c goal of less than 8.0% ([facility]) Use to check sugars 3 times a day 100 Strip 1 3 Active Accu-Chek Softclix LancetsIndications: Type 2 diabetes mellitus with hemoglobin A1c goal of less than 8.0% ([facility]) Use to check sugars 3 [...] MG Oral TabletIndications:C oronary artery disease involving [place] coronary artery of [place] heart without angina pectoris Take 1 Tablet by mouth in the morning. In the morning.. 90 Tablet 1 3 Active Metoprolol Succinate ER 50 MG Oral Tablet Extended Release 24 Hour (toPROL XL)Indications:Freddie nary artery disease involving [place] coronary artery of [place] heart without angina pectoris TAKE 1 & [...] the morning. 5 Tablet 0 3 Active Lactobacillus Probiotic Oral Tablet Take 3 Billion Cells by mouth in the morning. For 10 days. 0 3 Active Cyclobenzaprine HCl 10 [...] BEFORE MEALS 180 Tablet 1 3 Active Budesonide 0.25 MG/2ML Inhalation Suspension (Pulmicort) Inhale 0.5 mg via nebulizer in the morning and 0.5 mg in the evening. 0 3 Active predniSONE 10 MG Oral Tablet (Deltasone) Take 1 Tablet by mouth in the morning. Follow taper directions. 0 3 Active Tamsulosin HCl 0.4 MG Oral Capsule (Flomax) TAKE 2 CAPSULES EVERY MORNING 180 Capsule 0 3 Active Tamsulosin HCl 0.4 MG Oral Capsule (Flomax) Take 2 Capsules by mouth in the morning. 60 Capsule 0 3 023 Discontinued documented as of this encounter (statuses as of 08/31/2023) Active Problems Problem Noted Date Diagnosed Date [...] hemorrhage 10/04/2020 Coronary artery disease invo lving [place] heart without angina pectoris 10/04/2020 COPD, group [...] as of this encounter (statuses as of 08/31/2023) Resolved Problems Problem Noted Date Diagnosed Date [...] Calculus of kidney 08/20/2015 8 Overview: right, [place] CT Vitamin D deficiency 01/31/2015 018 Body [...] as of this encounter (statuses as of 08/31/2023) Immunizations Name Administration Dates Next Due COVID-19 mRNA, LNP-s, No Pre serve, 2-Dose Series (SignStorey) 01/02/2021,12/05/2020 DTP Vaccine 07/19/2017,04/03/2014 Hepatitis B, 20+ [...] encounter Miscellaneous Notes * Telephone Encounter - Chante Beltre RPh - 08/31/2023 8:29 AM ESTSigned Prescriptions: Disp Refills Tamsulosin HCl 0.4 MG Oral Capsule (Flomax)180 Ca*0 Sig: TAKE 2 CAPSULES EVERY MORNINGAuthorizing Provider: ROBERTO GRIFFIN User: CHANTE BELTRE--------- documented in this encounter Plan of Treatment Upcoming Encounters Date Type Department Care Team (Late st Contact Info) Description 08/31/2023 10:20 AM EST Office Visit General Internal Medicine [facility] [place] [address] [place] [address] Sylwia Luevano MD [address] [place] [address] 09/07/2023 8:40 AM EST Laboratory Lab Mobile Phlebotomy [facility] [address] [place] [address] Gm, [facility] Mobile Home Draw [address] [place] [address] 09/08/2023 6:00 AM EST Anticoagulation Pharmacy Call Center [address] [place] [address] Ccps, [facility] [address] [place] [address] Health Maintenance Due Date Last Done Comments DISCUSS TOBACCO CESSATION (REFER TO SMARTSET #7351) 1970 HIV Screening 1985 O2 ASSESSMENT COMPLETED IN PAST YEAR FOR COPD 1988 Pneumococcal Vaccine: Pediatrics (0 to 5 Years) and At-Risk Patients (6 to 64 Years) (2 - PCV) 05/22/2010 05/22/2009 Cologuard 2015 Fecal Occult Blood Test 2015 Sigmoidoscopy 2015 *ADVANCE DIRECTIVE NOT ON FILE 02/03/2020 LUNG CANCER SCREENING - USE SMARTSET [id number] 2020 02/10/2019, 07/19/2017, 05/09/2017, Additional history exists [...] this encounter Medical Devices Implanted Type Area Design Assembler Device Identifier Shelf Expiration Date Model / Serial / Lot Tube Flex 3.0x2.5 [id number] - [id number] Implanted:Qty: 1 on 12/07/2014 by Juancarlos Trinidad MD at OR [facility] Left: Finger LANDON : ORTHOPAEDICS 11/18/2015 [id number] / / [id number] documented as of this encounter Advance Directives [...] the patient have Health Care Power of Stem Maker? No Healthcare Agents on File Name Relationship Healthcare Agent Relationship Communication Estrella Seth Other - (no specific identity) Health Care Power of Stem Maker Care Teams Renewable Energy Trader Relationship Specialty Start Date End Date Roberto Griffin MD [address] [facility] [place] [address] PCP - General Internal Medicine 04/10/20 documented as of this encounter
--- OUTSIDE RECORDS SUMMARY | 2023-09-19 17:10 | External Medical Summary | Summary of Care ---
Author Name Unknown Organization [facility] Address [address] [place] [address] Phone [phone] Care Team Providers Care Product Marketing Engineer Name Role Phone Roberto Griffin MD Primary Care Provider + Reason for Visit * Reason Comments New Med Request Encounter Details Date Type Department Care Team ([facility] st Contact Info) Description 08/30/2023 Refill General Internal Medicine [facility] [address] [facility] [place] [address] Roberto Griffin MD [address] [place] [address] Type 2 diabetes mellitus with hemoglobin A1c goal of less than 8.0% ([facility]) Allergies Active Allergy Reactions Criticality Noted Date [...] day as needed. 0 Active nystatin (NYSTOP) 543809 UNIT/GM powderIndications:C utaneous candidiasis Apply topically to [...] D, by GOLD 2017 classification ([facility]) USE 2 PUFFS BY MOUTH EVERY 4 HOURS NEEDED SHORT OF BREATH 6.7 g 5 2 Active Magnesium Oxide 400 (241.3 Mg) MG Oral TabletIndications:C oronary artery disease involving [place] coronary artery of [place] heart without angina pectoris Take by mouth [...] for Anxiety. 21 Tablet 0 3 Active Ondansetron HCl 4 MG Oral [...] MG Oral TabletIndications:C oronary artery disease involving [place] coronary artery of [place] heart without angina pectoris Take 1 Tablet by mouth in the morning. In the morning.. 90 Tablet 1 3 Active Metoprolol Succinate ER 50 MG Oral Tablet Extended Release 24 Hour (toPROL XL)Indications:Freddie nary artery disease involving [place] coronary artery of [place] heart without angina pectoris TAKE 1 & [...] AT BEDTIME 180 Tablet 2 3 Active Lactobacillus Probiotic Oral Tablet Take [...] EVERY MORNING 180 Capsule 0 3 Active True Metrix Meter w/Device KitIndications:Type 2 diabetes mellitus with hemoglobin A1c goal of less than 8.0% (HCC) Use 3 times daily as directed 1 Kit 0 3 Active True Metrix Blood Glucose Test In Vitro Strip (Glucose Blood)Indications:T ype 2 diabetes mellitus with hemoglobin A1c goal of less than 8.0% (HCC) Use 3 times daily as directed 300 Strip 3 3 Active TRUEplus Lancets 33GIndications:Type 2 diabetes mellitus with hemoglobin A1c goal of less than 8.0% (HCC) Use 3 times daily as directed 300 Each 3 3 Active BD Swab Single Use Regular Pad Use 3 times daily as directed 300 Each 3 3 Active True Metrix Level 1 Low In Vitro Solution Use as directed 1 Each 0 3 Active Torsemide 100 MG Oral Tablet (Demadex) Take 0.5 Tablets by mouth in the morning. 15 Tablet 1 3 Active Accu-Chek Guide Me w/Device KitIndications:Type 2 diabetes mellitus with hemoglobin A1c goal of less than 8.0% (HCC) Use as directed. 1 Kit 0 3 023 Discontinued Accu-Chek Guide In Vitro Strip (Glucose Blood)Indications:T ype 2 diabetes mellitus with hemoglobin A1c goal of less than 8.0% (HCC) Use to check sugars 3 times a day 100 Strip 1 3 023 Discontinued Accu-Chek Softclix LancetsIndications: Type 2 diabetes mellitus with hemoglobin A1c goal of less than 8.0% (HCC) Use to check sugars 3 times a day 100 Each 3 3 023 Discontinued Torsemide 100 MG Oral Tablet (Demadex) Take 0.5 Tablets by mouth in the morning. 5 Tablet 0 3 023 Discontinued documented as of [...] 01/24/2021 Opioid dependence, uncomplicated 01/22/2021 History of [place] (myocardial infarction) 01/22/2021 Morbid obesity with BMI of 50.0-59.9, adult 09/20 History of subdural hematoma 10/04/2020 Gastroesophageal reflux disease without esophagi tis 10/04/2020 History of subarachnoid hemorrhage 10/04/2020 Coronary artery disease invo lving [place] heart without angina pectoris 10/04/2020 COPD, group [...] Calculus of kidney 08/20/2015 8 Overview: right, [place] CT Vitamin D deficiency 01/31/2015 018 Body [...] mRNA, LNP-s, No Pre serve, 2-Dose Series (Soldsie) 01/02/2021,12/05/2020 DTP Vaccine 07/19/2017,04/03/2014 Hepatitis B, 20+ [...] Telephone Encounter - Jono Pollock MD - 08/31/2023 12:19 PM ESTSigned Prescriptions: Disp Refills True Metrix Meter w/Device Kit 1 Kit 0 Sig: Use 3 times daily asdirectedAuthorizing Provider: ROBERTO GRIFFIN User: MANUEL CHAPPELL True Metrix Blood Glucose Test In Vitro St*300 St*3 Sig: Use 3 times daily as directedAuthorizing Provider: ROBERTO GRIFFIN User: MANUEL CHAPPELL TRUEplus Lancets [id number] Ea*3 Sig: Use 3 times daily as directedAuthorizing Provider: ROBERTO GRIFFIN User: MANUEL CHAPPELL BD Swab Single Use Regular Pad 300 Ea*3 Sig: Use 3 times daily as directedAuthorizing Provider: ROBERTO GRIFFIN User: MANUEL CHAPPELL True Metrix Level 1 Low In Vitro Solution 1 Each 0 Sig: Use as directedAuthorizing Provider: ROBERTO GRIFFIN User: MANUEL CHAPPELL Torsemide 100 MG Oral Tablet (Demadex) 15 Tab*1 Sig: Take 0.5 Tablets by mouth in the morning.Authorizing Provider: JONO POLLOCK * Telephone Encounter - Manuel Quiñones, [facility] - 08/31/2023 11:21 AM ESTPending Prescriptions: Disp Refills Torsemide 100 MG Oral Tablet (Demadex) 15 Tab*1 Sig: Take 0.5 Tablets by mouth in the morning. Signed Prescriptions: Disp Refills True Metrix Meter w/Device Kit 1 Kit 0 Sig: Use 3 times daily as directed Authorizing Provider: ROBERTO GRIFFIN Ordering User: MANUEL CHAPPELL True Metrix Blood Glucose Test In Vitro St*300 St*3 Sig: Use 3 times daily as directed Authorizing Provider: ROBERTO GRIFFIN Ordering User: MANUEL CHAPPELL TRUEplus Lancets 33G 300 Ea*3 Sig: Use 3 times daily as directed Authorizing Provider: ROBERTO GRIFFIN Ordering User: MANUEL CHAPPELL BD Swab Single Use Regular Pad 300 Ea*3 Sig: Use 3 times daily as directed Authorizing Provider: ROBERTO GRIFFIN Ordering User: MANUEL CHAPPELL True Metrix Level 1 Low In Vitro Solution 1 Each 0 Sig: Use as directed Authorizing Provider: ROBERTO GRIFFIN Ordering User: MANUEL CHAPPELL * Telephone Encounter - Manuel Quiñones [facility] - 08/31/2023 11:19 AM EST Pharmacists cannot authorize refills for meds listed as "historical" in chart. Please approve if appropriate. Thank You, Manuel Chappell [facility] Clinical Pharmacist [facility] ([facility]) ([facility] 08/31/2023, 11:19 AM * Telephone Encounter - Manuel Quiñones RP - 08/31/2023 11:15 AM EST Pending Prescriptions: Disp Refills True Metrix Meter w/Device Kit [Pharmacy * 0 True Metrix Blood Glucose Test In Vitro S* 0 Sig: TRUEplus Lancets 33G [Pharmacy Med Name: * 0 Sig: BD Swab Single Use Regular Pad [Pharmacy * 0 True Metrix Level 1 Low In Vitro Solution* 0 Torsemide 100 MG Oral Tablet (Demadex) [P* 0 Last Visit: 08/10/2022 (in office), 12/10/2021 (telemedicine) Next Visit: 08/31/2023 If no future appointments scheduled, and last appointment is greater than a year ago, please schedule patient for a follow-up appointment Last date the medication was ordered: 08/31/23 Pharmacy: [facility] [address] [facility] [place] Is this request for a controlled substance? No Urine Drug Screen:No results found. However, due [...] Upcoming Encounters Date Type Department Care Team ([facility] st Contact Info) Description 09/07/2023 8:40 AM EST Laboratory Lab Mobile Phlebotomy [facility] [address] [place] [address] Gm, [facility] Mobile Home Draw [address] [place] [address] 09/08/2023 6:00 AM EST Anticoagulation Pharmacy Call Center [address] [place] [address] Ccps, [facility] [address] [place] [address] Health Maintenance Due Date Last Done Comments DISCUSS TOBACCO CESSATION (REFER TO SMARTSET #4341) 1970 HIV Screening 1985 O2 ASSESSMENT COMPLETED IN PAST YEAR FOR COPD 1988 Pneumococcal Vaccine: Pediatrics (0 to 5 Years) and At-Risk Patients (6 to 64 Years) (2 - PCV) 05/22/2010 05/22/2009 Cologuard 2015 Fecal Occult Blood Test 2015 Sigmoidoscopy 2015 *ADVANCE DIRECTIVE NOT ON FILE 02/03/2020 LUNG CANCER SCREENING - USE SMARTSET [id number] 2020 02/10/2019, 07/19/2017, 05/09/2017, Additional history exists [...] this encounter Medical Devices Implanted Type Area County Administrator Device Identifier Shelf Expiration Date Model / Serial / Lot Tube Flex 3.0x2.5 [id number] - [id number] Implanted:Qty: 1 on 12/07/2014 by Juancarlos Trinidad MD at [facility] Left: Finger [employer] : ORTHOPAEDICS 11/18/2015 [id number] / / [id number] documented as of this encounter Visit Diagnoses [...] the patient have Health Care Power of Shaker Repairer? No Healthcare Agents on File Name Relationship Healthcare Agent Relationship Communication Estrella Seth Other - (no specific identity) Health Care Power of Shaker Repairer Care Teams Product Marketing Engineer Relationship Specialty Start Date End Date Roberto Griffin MD [address] [facility] [address] PCP - General Internal Medicine 04/10/20 documented as of this encounter
--- OUTSIDE RECORDS SUMMARY | 2023-09-19 17:10 | External Medical Summary | Summary of Care ---
Author Name Unknown Organization [facility] Address [address] [place] [address] Phone [phone] Care Team Providers Care General Foundry Worker Name Role Phone Roberto Griffin MD Primary Care Provider + Reason for Visit * Reason Comments eRx-Medication Refill Encounter Details Date Type Department Care Team (Late st Contact Info) Description 09/05/2023 Refill General Internal Medicine [facility] [address] [place] [address] Madina Pollock MD [address] [place] [address] Allergies Active Allergy Reactions Criticality Noted Date [...] as of this encounter (statuses as of 09/06/2023) Medications Medication Sig Dispensed Refills Start Date [...] day as needed. 0 Active nystatin (NYSTOP) 608965 UNIT/GM powderIndications:C utaneous candidiasis Apply topically to [...] C, by GOLD 2017 classification ([facility]),COPD, group D, by GOLD 2017 classification ([facility]) USE 2 PUFFS BY MOUTH EVERY 4 HOURS NEEDED SHORT OF BREATH 6.7 g 5 2 Active Magnesium Oxide 400 (241.3 Mg) MG Oral TabletIndications:C oronary artery disease involving [place] coronary artery of [place] heart without angina pectoris Take by mouth [...] MG Oral TabletIndications:C oronary artery disease involving [place] coronary artery of [place] heart without angina pectoris Take 1 Tablet by mouth in the morning. In the morning.. 90 Tablet 1 3 Active Metoprolol Succinate ER 50 MG Oral Tablet Extended Release 24 Hour (toPROL XL)Indications:Freddie nary artery disease involving [place] coronary artery of [place] heart without angina pectoris TAKE 1 & [...] WEDNESDAY ONLY. 39 Tablet 1 3 Active Potassium Chloride Terra [...] than 8.0% ([facility]) Use 3 times daily as directed 1 Kit 0 3 Active True Metrix Blood Glucose Test In Vitro Strip (Glucose Blood)Indications:T ype 2 diabetes mellitus with hemoglobin A1c goal of less than 8.0% ([facility]) Use 3 times daily as directed 300 Strip 3 3 Active TRUEplus Lancets 33GIndications:Type 2 diabetes mellitus with hemoglobin A1c goal of less than 8.0% ([facility]) Use 3 times daily as directed 300 Each 3 3 Active BD Swab Single Use Regular Pad Use 3 times daily as directed 300 Each 3 3 Active True Metrix Level 1 Low In Vitro Solution Use as directed 1 Each 0 3 Active Torsemide 100 MG Oral Tablet (Demadex) Take 0.5 Tablets by mouth in the morning. 15 Tablet 1 3 Active Atorvastatin Calcium 80 MG Oral Tablet (Lipitor) TAKE 1 TABLET BY MOUTH IN THE AFTERNOON. 90 Tablet 1 3 Active Atorvastatin Calcium 80 MG Oral Tablet (Lipitor) Take 1 Tablet by mouth in the morning. 90 Tablet 3 3 023 Discontinued documented as of this encounter (statuses as of 09/06/2023) Active Problems Problem Noted Date Diagnosed Date [...] 01/24/2021 Opioid dependence, uncomplicated 01/22/2021 History of [place] (myocardial infarction) 01/22/2021 Morbid obesity with BMI of 50.0-59.9, adult 09/20 History of subdural hematoma 10/04/2020 Gastroesophageal reflux disease without esophagi tis 10/04/2020 History of subarachnoid hemorrhage 10/04/2020 Coronary artery disease invo lving [place] heart without angina pectoris 10/04/2020 COPD, group [...] as of this encounter (statuses as of 09/06/2023) Resolved Problems Problem Noted Date Diagnosed Date [...] Calculus of kidney 08/20/2015 8 Overview: right, [place] CT Vitamin D deficiency 01/31/2015 018 Body [...] as of this encounter (statuses as of 09/06/2023) Immunizations Name Administration Dates Next Due COVID-19 mRNA, LNP-s, No Pre serve, 2-Dose Series (Anki) 01/02/2021,12/05/2020 DTP Vaccine 07/19/2017,04/03/2014 Hepatitis B, 20+ [...] Miscellaneous Notes * Telephone Encounter - Joey Saldaña [facility] - 09/06/2023 12:02 PM EST Signed Prescriptions: Disp Refills Atorvastatin Calcium 80 MG Oral Tablet (Li*90 Tab*1 Sig: TAKE 1 TABLET BY MOUTH IN THE AFTERNOON.Authorizing Provider: ROBERTO GRIFFIN User: JOEY SALDAÑA documented in this encounter Plan of Treatment Upcoming Encounters Date Type Department Care Team (Late st Contact Info) Description 09/07/2023 8:40 AM EST Laboratory Lab Mobile Phlebotomy [facility] [address] [place] [address] [facility] Mobile Home Draw [address] [place] [address] 09/08/2023 6:00 AM EST Anticoagulation Pharmacy Call Center [address] [place] [address] Ccp, [facility] [address] [place] [address] Health Maintenance Due Date Last Done Comments DISCUSS TOBACCO CESSATION (REFER TO SMARTSET #3291) 1970 HIV Screening 1985 O2 ASSESSMENT COMPLETED IN PAST YEAR FOR COPD 1988 Pneumococcal Vaccine: Pediatrics (0 to 5 Years) and At-Risk Patients (6 to 64 Years) (2 - PCV) 05/22/2010 05/22/2009 Cologuard 2015 Fecal Occult Blood Test 2015 Sigmoidoscopy 2015 *ADVANCE DIRECTIVE NOT ON FILE 02/03/2020 LUNG CANCER SCREENING - USE SMARTSET [id number] 2020 02/10/2019, 07/19/2017, 05/09/2017, Additional history exists [...] this encounter Medical Devices Implanted Type Area Closing Specialist Device Identifier Shelf Expiration Date Model / Serial / Lot Tube Flex 3.0x2.5 [id number] - [id number] Implanted:Qty: 1 on 12/07/2014 by Juancarlos Trinidad MD at [facility] Left: Finger [employer] : ORTHOPAEDICS 11/18/2015 [id number] / / [id number] documented as of this encounter Advance Directives [...] the patient have Health Care Power of Senior Electrical Designer? No Healthcare Agents on File Name Relationship Healthcare Agent Relationship Communication Estrella Seth Other - (no specific identity) Health Care Power of Senior Electrical Designer Care Teams General Foundry Worker Relationship Specialty Start Date End Date Roberto Griffin MD [address] [place] [address] PCP - General Internal Medicine 04/10/20 documented as of this encounter
--- OUTSIDE RECORDS SUMMARY | 2023-09-19 17:10 | External Medical Summary | Summary of Care ---
Author Name Unknown Organization [facility] Address [address] [place] [address] Phone [phone] Care Team Providers Care Head Operator Sulfide Name Role Phone Roberto Askew MD Primary Care Provider + Reason for Visit * Reason Onset Date Comments Hospital Follow-Up 08/27/2023 [facility] 08/26 Encounter Details Date Type Department Care Team (Late st Contact Info) Description 08/27/2023 Telephone Ancillary [facility] [address] [place] [address] Jenni Banegas, RN Hospital Follow-Up ([facility] 08/26) Allergies Active Allergy Reactions Criticality Noted Date [...] day as needed. 0 Active nystatin (NYSTOP) 111855 UNIT/GM powderIndications:C utaneous candidiasis Apply topically to [...] C, by GOLD 2017 classification ([facility]),COPD, group D, by GOLD 2017 classification ([facility]) USE 2 PUFFS BY MOUTH EVERY 4 HOURS NEEDED SHORT OF BREATH 6.7 g 5 11/25/19 22 Active Magnesium Oxide 400 (241.3 Mg) MG Oral TabletIndications:C oronary artery disease involving ak chin coronary artery [...] Anxiety. 21 Tablet 0 09/30/19 23 Active Ondansetron HCl 4 MG Oral [...] 23 Active Benzonatate 100 MG Oral Capsule (Tessaldelfino Rios) TAKEONE CAPSULE BY MOUTH EVERY MORNING, ONE AT NOON, AND ONE EVERY EVENING, FOR COUGH. 20 Capsule 0 12/31/19 23 Active Isosorbide Dinitrate 30 MG Oral TabletIndications:C oronary artery disease involving ak chin coronary artery of ak chin heart without angina pectoris Take 1 Tablet by mouth in the morning. In the morning.. 90 Tablet 1 04/05/20 23 Active Metoprolol Succinate ER 50 MG Oral Tablet Extended Release 24 Hour (toPROL XL)Indications:Freddie nary artery disease involving ak chin coronary artery [...] AND AT BEDTIME 180 Tablet 2 05/11/20 23 Active Lactobacillus Probiotic Oral Tablet Take 3 Billion Cells by mouth in the morning. For 10 days. 0 05/26/20 23 Active Cyclobenzaprine HCl [...] IN THE MORNING. 90 Capsule 1 06/14/20 23 Active Gabapentin 800 MG Oral Tablet (Neurontin)Indicati ons:DM type 2 with diabetic peripheral neuropathy (HCC) TAKE 1 TABLET BY MOUTH IN THE MORNING, 1 TABLET AT NOON AND 1 TABLET BEFORE BEDTIME. 270 Tablet 10 07/07/20 23 Active glipiZIDE 10 MG Oral Tablet (Glucotrol)Indicati ons:Diabetes mellitus with nephropathy (HCC) TAKE ONE TABLET BY MOUTH 2 TIMES A DAY 30 MINUTES BEFORE MEALS 180 Tablet 1 07/22/20 23 Active Budesonide 0.25 MG/2ML Inhalation Suspension (Pulmicort) Inhale 0.5 mg via nebulizer in the morning and 0.5 mg in the evening. 0 07/27/20 23 Active predniSONE 10 MG Oral Tablet (Deltasone) Take 1 Tablet by mouth in the morning. Follow taper directions. 0 08/26/20 23 Active Accu-Chek Guide Me w/Device KitIndications:Type 2 diabetes mellitus with hemoglobin A1c goal of less than 8.0% ([facility]) Use as directed. 1 Kit 0 10/30/19 23 023 Discontinued Accu-Chek Guide In Vitro Strip (Glucose Blood)Indications:T ype 2 diabetes mellitus with hemoglobin A1c goal of less than 8.0% ([facility]) Use to check sugars 3 times a day 100 Strip 1 10/30/19 23 023 Discontinued Accu-Chek Softclix LancetsIndications: Type 2 diabetes mellitus with hemoglobin A1c goal of less than 8.0% ([facility]) Use to check sugars 3 times a day 100 Each 3 10/30/19 23 023 Discontinued Torsemide 100 MG Oral Tablet (Demadex) Take 0.5 Tablets by mouth in the morning. 5 Tablet 0 05/11/20 23 023 Discontinued Amoxicillin-Pot Clavulanate 875-125 MG Oral Tablet (Augmentin) Take 1 Tablet by mouth in the morning and 1 Tablet before bedtime. For 7 days. 0 05/26/20 23 023 Discontinued(Me dication/Dose Changed) predniSONE 20 MG Oral Tablet (Deltasone) Take 1 Tablet by mouth in the morning. For 4 days. 0 05/26/20 23 023 Discontinued(Me dication List Clean Up) Tamsulosin HCl 0.4 MG Oral Capsule (Flomax) Take 2 Capsules by mouth in the morning. 60 Capsule 0 07/28/20 23 023 Discontinued Doxycycline Hyclate 100 MG Oral Capsule Take 1 Capsule by mouth in the morning. 0 08/26/20 23 023 Amoxicillin-Pot Clavulanate 875-125 MG Oral Tablet (Augmentin) Take 1 Tablet by mouth in the morning and 1 Tablet before bedtime. 0 08/27/20 23 023 documented as of this encounter (statuses as [...] 01/24/2021 Opioid dependence, uncomplicated 01/22/2021 History of [place] (myocardial infarction) 01/22/2021 Morbid obesity with BMI of 50.0-59.9, adult 09/20 History of subdural hematoma 10/04/2020 Gastroesophageal reflux disease without esophagi tis 10/04/2020 History of subarachnoid hemorrhage 10/04/2020 Coronary artery disease invo lving ak chin heart without angina pectoris 10/04/2020 [...] Calculus of kidney 08/20/2015 8 Overview: right, [place] CT Vitamin D deficiency 01/31/2015 018 Body [...] mRNA, LNP-s, No Pre serve, 2-Dose Series ([employer]) 01/02/2021,12/05/2020 DTP Vaccine 07/19/2017,04/03/2014 Hepatitis B, 20+ [...] encounter Miscellaneous Notes * Telephone Encounter - Jenni Banegas RN - 08/31/2023 12:31 PM EST Pt did not return call or show up for his hospital follow up appt * Telephone Encounter - Jenni Banegas RN - 08/27/2023 1:05 PM EST Transitions of Care Note Reason for Referral:Recent Admission Phone visit for follow up: FARIDA Admitted to: [facility], Date: 08/23 Discharged to: home, Date: 08/26 Diagnosis driving hospitalization: acute metabolic encephalopathy COPD exacerbation CAUTI, POA Message left for pt. If he reaches the call center he can be transferred to pr at [phone]. Thank you documented in this encounter Plan of Treatment Upcoming Encounters Date Type Department Care Team (Late st Contact Info) Description 09/07/2023 8:40 AM EST Laboratory Lab Mobile Phlebotomy [facility] [address] [place] [address] [facility], [facility] Draw [address] [place] [address] 09/08/2023 6:00 AM EST Anticoagulation Pharmacy Call Center [address] [place] [address] [facility] [address] [place] [address] Health Maintenance Due Date Last Done Comments DISCUSS TOBACCO CESSATION (REFER TO SMARTSET #4348) 1970 HIV Screening 1985 O2 ASSESSMENT COMPLETED IN PAST YEAR FOR COPD 1988 Pneumococcal Vaccine: Pediatrics (0 to 5 Years) and At-Risk Patients (6 to 64 Years) (2 - PCV) 05/22/2010 05/22/2009 Cologuard 2015 Fecal Occult Blood Test 2015 Sigmoidoscopy 2015 *ADVANCE DIRECTIVE NOT ON FILE 02/03/2020 LUNG CANCER SCREENING - USE SMARTSET [id number] 2020 02/10/2019, 07/19/2017, 05/09/2017, Additional history exists [...] this encounter Medical Devices Implanted Type Area Quartz Orientator Device Identifier Shelf Expiration Date Model / Serial / Lot Tube Flex 3.0x2.5 [id number] - [id number] Implanted:Qty: 1 on 12/07/2014 by Juancarlos Trinidad MD at [facility] Left: Finger LANDON : ORTHOPAEDICS 11/18/2015 [id number] / / [id number] documented as of this encounter Advance Directives [...] the patient have Health Care Power of Blanking Machine Operator? No Healthcare Agents on File Name Relationship Healthcare Agent Relationship Communication Estrella Seth Other - (no specific identity) Health Care Power of Blanking Machine Operator Care Teams Head Operator Sulfide Relationship Specialty Start Date End Date Roberto Askew MD [address] [place] [address] PCP - General Internal Medicine 04/10/20 documented as of this encounter
--- OUTSIDE RECORDS SUMMARY | 2023-09-19 17:10 | External Medical Summary ---
Author Name Unknown Address Unknown Organization [id number]:[facility] [address] [place] [id number] Laboratory Report Ordering Provider Test Date Status [place] 09/07/2023 07:50:00 Final Observation Date Value Abnormality Reference (Units ) Status WBC, Total 09/07/2023 07:50:00 17.83 Above high normal 4 .00-10.80 (K/uL) Final RBC 09/07/2023 07:50:00 5.61 4.50-5.25 (M/uL) Final Hemoglobin 09/07/2023 07:50:00 14.1 14.0-16.8 (g/dL) Final HCT 09/07/2023 07:50:00 44.5 40.0-48.4 (%) Final MCV 09/07/2023 07:50:00 79.3 82.0-99.5 (fL) Final MCH 09/07/2023 07:50:00 25.1 27.0-34.0 (pg) Final MCHC 09/07/2023 07:50:00 31.7 32.0-36.0 (g/dL) Final RDW 09/07/2023 07:50:00 22.6 11.5-15.5 (%) Final Platelets 09/07/2023 07:50:00 269 140-400 (K /uL) Final MPV 09/07/2023 07:50:00 11.5 6.6-11.1 ( fL) Final Performing Location [facility] [address] [place] [id number]
--- OUTSIDE RECORDS SUMMARY | 2023-09-19 17:10 | External Medical Summary | Summary of Care ---
Author Name Unknown Organization [facility] Address [address] [place] [address] Phone [phone] Care Team Providers Care Accounting Coordinator Name Role Phone Roberto Askew MD Primary Care Provider + Reason for Visit * Reason Comments Dosage Adjustment Via Phone (anticoag Cl inic) Encounter Details Date Type Department Care Team (Latest Contact Info) Description 08/27/2023 6:00 AM EST Anticoagulation Pharmacy Call Center [address] [place] [address] [facility] [address] [place] [address] History of pulmonary embolism* Allergies Active Allergy [...] as of this encounter (statuses as of 08/27/2023) Medications Medication Sig Dispensed Refills Start Date [...] day as needed. 0 Active nystatin (NYSTOP) 294033 UNIT/GM powderIndications:Cut aneous candidiasis Apply topically to [...] MG Oral TabletIndications:Cor onary artery disease involving napaimute coronary artery of napaimute heart without angina pectoris Take by mouth [...] MG Oral TabletIndications:Cor onary artery disease involving napaimute coronary artery of napaimute heart without angina pectoris Take 1 Tablet by mouth in the morning. In the morning.. 90 Tablet 1 04/05/2023 Active Metoprolol Succinate ER 50 MG Oral Tablet Extended Release 24 Hour (toPROL XL)Indications:Harman ry artery disease involving napaimute coronary artery of napaimute heart without angina pectoris TAKE 1 & [...] as of this encounter (statuses as of 08/27/2023) Active Problems Problem Noted Date Diagnosed Date [...] 01/24/2021 Opioid dependence, uncomplicated 01/22/2021 History of [place] (myocardial infarction) 01/22/2021 Morbid obesity with BMI of 50.0-59.9, adult 09/20 History of subdural hematoma 10/04/2020 Gastroesophageal reflux disease without esophagi tis 10/04/2020 History of subarachnoid hemorrhage 10/04/2020 Coronary artery disease invo lving napaimute heart without angina pectoris 10/04/2020 COPD, group [...] as of this encounter (statuses as of 08/27/2023) Resolved Problems Problem Noted Date Diagnosed Date [...] Calculus of kidney 08/20/2015 8 Overview: right, [place] CT Vitamin D deficiency 01/31/2015 018 Body [...] as of this encounter (statuses as of 08/27/2023) Immunizations Name Administration Dates Next Due COVID-19 mRNA, LNP-s, No Pre serve, 2-Dose Series ([employer]) 01/02/2021,12/05/2020 DTP Vaccine 07/19/2017,04/03/2014 Hepatitis B, [...] Progress Notes * Keren Sanchez RPh - 08/27/2023 9:36 AM EST Noted, [facility] will follow up at discharge Keren Sanchez Rph, Pharm.D. Clinical Pharmacist [facility] ([facility]) (formerly Telepharmacy) [phone] 08/27/2023,9:36 AM * Stephani Soto hide cleaner - 08/27/2023 7:20 AM EST Pt is currently admitted to [facility]. Please advise. Thank you, Stephani Soto Impregnating Tank Operator [facility] ([facility]) (formerly Telepharmacy) [phone] 08/27/2023,7:20 AM documented in this encounter Plan of Treatment Upcoming Encounters Date Type Department Care Team (Late st Contact Info) Description 08/31/2023 10:20 AM EST Office Visit General Internal [facility] [address] [facility] [place] [address] Sylwia Luevano MD [address] [facility], [place] [address] Health Maintenance Due Date Last Done Comments DISCUSS TOBACCO CESSATION (REFER TO SMARTSET #0131) 1970 HIV Screening 1985 O2 ASSESSMENT COMPLETED IN PAST YEAR FOR COPD 1988 Pneumococcal Vaccine: Pediatrics (0 to 5 Years) and At-Risk Patients (6 to 64 Years) (2 - PCV) 05/22/2010 05/22/2009 Cologuard 2015 Fecal Occult Blood Test 2015 Sigmoidoscopy 2015 *ADVANCE DIRECTIVE NOT ON FILE 02/03/2020 LUNG CANCER SCREENING - USE SMARTSET [id number] 2020 02/10/2019, 07/19/2017, 05/09/2017, Additional history exists [...] this encounter Medical Devices Implanted Type Area Kinesiology Professor Device Identifier Shelf Expiration Date Model / Serial / Lot Tube Flex 3.0x2.5 [id number] - [id number] Implanted:Qty: 1 on 12/07/2014 by Juancarlos Trinidad MD at [facility] Left: Finger LANDON : ORTHOPAEDICS 11/18/2015 [id number] / / [id number] documented as of this encounter Visit Diagnoses [...] the patient have Health Care Power of Dimension Specification Inspector? No Healthcare Agents on File Name Relationship Healthcare Agent Relationship Communication Estrella Seth Other - (no specific identity) Health Care Power of Dimension Specification Inspector Care Teams Accounting Coordinator Relationship Specialty Start Date End Date Roberto Askew MD [address] [facility] [place] [address] PCP - General Internal Medicine 04/10/20 documented as of this encounter
--- OUTSIDE RECORDS SUMMARY | 2023-09-19 17:10 | External Medical Summary | Summary of Care ---
Author Name Unknown Organization [facility] Address [address] [place] [address] Phone [phone] Care Team Providers Care Pressing Department Supervisor Name Role Phone Roberto Askew MD Primary Care Provider + Reason for Visit * Reason Comments Dosage Adjustment Via Phone (anticoag Cl inic) Encounter Details Date Type Department Care Team (Latest Contact Info) Description 08/30/2023 6:45 AM EST Anticoagulation Pharmacy Call Center [address] [place] [address] [facility] [address] [place] [address] History of pulmonary embolism* Allergies Active Allergy [...] as of this encounter (statuses as of 08/30/2023) Medications Medication Sig Dispensed Refills Start Date [...] day as needed. 0 Active nystatin (NYSTOP) 931449 UNIT/GM powderIndications:Cut aneous candidiasis Apply topically to [...] MG Oral TabletIndications:Cor onary artery disease involving venetie coronary artery of venetie heart without angina pectoris Take by mouth [...] [place]) Use as directed. 1 Kit 0 10/30/2022 Active Accu-Chek Guide In Vitro Strip (Glucose Blood)Indications:Typ e 2 diabetes mellitus with hemoglobin A1c goal of less than 8.0% ([facility]) Use to check sugars 3 times a day 100 Strip 1 10/30/2022 Active Accu-Chek Softclix LancetsIndications:Ty pe 2 diabetes mellitus with hemoglobin A1c goal of less than 8.0% ([facility]) Use to check sugars 3 times a [...] MG Oral TabletIndications:Cor onary artery disease involving venetie coronary artery of venetie heart without angina pectoris Take 1 Tablet by mouth in the morning. In the morning.. 90 Tablet 1 04/05/2023 Active Metoprolol Succinate ER 50 MG Oral Tablet Extended Release 24 Hour (toPROL XL)Indications:Harman ry artery disease involving venetie coronary artery of venetie heart without angina pectoris TAKE 1 & [...] the morning. 5 Tablet 0 05/11/2023 Active Lactobacillus Probiotic Oral Tablet Take [...] the morning. 60 Capsule 0 07/28/2023 Active Budesonide 0.25 MG/2ML Inhalation Suspension (Pulmicort) Inhale 0.5 mg via nebulizer in the morning and 0.5 mg in the evening. 0 07/27/2023 Active predniSONE 10 MG Oral Tablet (Deltasone) Take 1 Tablet by mouth in the morning. Follow taper directions. 0 08/26/2023 Active documented as of this encounter (statuses as of 08/30/2023) Active Problems Problem Noted Date Diagnosed Date [...] 01/24/2021 Opioid dependence, uncomplicated 01/22/2021 History of [place] (myocardial infarction) 01/22/2021 Morbid obesity with BMI of 50.0-59.9, adult 09/20 History of subdural hematoma 10/04/2020 Gastroesophageal reflux disease without esophagi tis 10/04/2020 History of subarachnoid hemorrhage 10/04/2020 Coronary artery disease invo lving venetie heart without angina pectoris 10/04/2020 COPD, group [...] as of this encounter (statuses as of 08/30/2023) Resolved Problems Problem Noted Date Diagnosed Date [...] 40.0-44.9, adult 10/04/2017 018 Overview: bmi= 44.48 1/15/17 Opioid dependence on [...] Calculus of kidney 08/20/2015 8 Overview: right, [place] CT Vitamin D deficiency 01/31/2015 018 Body [...] as of this encounter (statuses as of 08/30/2023) Immunizations Name Administration Dates Next Due COVID-19 mRNA, LNP-s, No Pre serve, 2-Dose Series ([employer]) 01/02/2021,12/05/2020 DTP Vaccine 07/19/2017,04/03/2014 Hepatitis B, 20+ [...] this encounter Progress Notes * Alexandra Carrillo, [facility] - 08/30/2023 12:20 PM EST Medication Therapy Disease Management - Anticoagulation Patient: Stanton Milner | : 1970 Subjective Contacts Type Contact Phone/Fax 08/30/2023 12:45 PM EST Phone (Outgoing) Stanton Milner (Self) [phone] (H) Patient-Reported Symptoms: Patient Findings Positives: Change in medications (Augmentin & doxy x 3 more days, prednisone taper, budesonide nebulized), Hospital admission (Admitted to [facility] 08/23 - 08/26 for acute metabolic encephalopathy, COPD exacerbation and CAUTI. Pt with rhinovirus and mild PNA) Objective Current Warfarin Dose As of 08/30/2023 Warfarin maintenance plan: 5 mg (5 mg x 1) every Wed, Fri; 2.5 mg (5 mg x 0.5) all other days INR Result As of 08/30/2023 INR goal: 2.0-3.0 INR used for dosin.1 (08/24/2023) Assessment & Plan Warfarin Plan As of 08/30/2023 Full warfarin instructions: 5 mg every Wed, Fri; 2.5 mg all other days No change documented: Alexandra Carrillo RPh Next INR check: 09/07/2023 Repeat PT/INR in 1 week(s) Weekly dose: not changed Additional Dosing Information: Description GML(MTuTh) - pt prefers Tues GML at this time Alexandra Carrillo RPh Clinical Pharmacist 08/30/2023, 12:20 PM documented in this encounter Plan of Treatment Upcoming Encounters Date Type Department Care Team (Late st Contact Info) Description 08/31/2023 10:20 AM EST Office Visit General Internal Medicine [facility] [place] [address] [facility] [address] Sylwia Luevano MD [address] [facility] [address] Health Maintenance Due Date Last Done Comments DISCUSS TOBACCO CESSATION (REFER TO SMARTSET #8824) 1970 HIV Screening 1985 O2 ASSESSMENT COMPLETED IN PAST YEAR FOR COPD 1988 Pneumococcal Vaccine: Pediatrics (0 to 5 Years) and At-Risk Patients (6 to 64 Years) (2 - PCV) 05/22/2010 05/22/2009 Cologuard 2015 Fecal Occult Blood Test 2015 Sigmoidoscopy 2015 *ADVANCE DIRECTIVE NOT ON FILE 02/03/2020 LUNG CANCER SCREENING - USE SMARTSET [id number] 2020 02/10/2019, 07/19/2017, 05/09/2017, Additional history exists [...] encounter Medical Devices Implanted Type Area Field Service Representative Device Identifier Shelf Expiration Date Model / Serial / Lot Tube Flex 3.0x2.5 [id number] - [id number] Implanted:Qty: 1 on 12/07/2014 by Juancarlos Trinidad MD at [facility] Left: Finger [employer]ON : ORTHOPAEDICS 11/18/2015 [id number] / / [id number] documented as of this encounter Procedures Procedure Name Priority Date/Time Associated Diagnosis Comments OUTSIDE LAB-PT/INR Routine 08/24/2023 OUTSIDE LAB-PT/INR Routine 08/23/2023 OUTSIDE LAB-PT/INR Routine 08/22/2023 documented in this encounter Results * OUTSIDE LAB-PT/INR (08/24/2023) INR-OUTSIDE LAB 2.1 08/24/2023 History Per Patient LABORATORY * OUTSIDE LAB-PT/INR (08/23/2023) INR-OUTSIDE LAB 2.4 08/23/2023 History Per Patient LABORATORY * OUTSIDE LAB-PT/INR (08/22/2023) INR-OUTSIDE LAB 2.6 08/22/2023 History Per Patient LABORATORY documented in this [...] the patient have Health Care Power of Car Seat Upholsterer? No Healthcare Agents on File Name Relationship Healthcare Agent Relationship Communication Estrella Seth Other - (no specific identity) Health Care Power of Car Seat Upholsterer Care Teams Pressing Department Supervisor Relationship Specialty Start Date End Date Roberto Askew MD [address] [place] [address], [place] [address] PCP - General Internal Medicine 7/22/20 documented as of this encounter
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
--- NOTE | 2023-09-19 17:35 | XRay Report ---
SINGLE VIEW CHEST CLINICAL HISTORY: Atypical chest pain FINDINGS: An AP, portable, upright chest radiograph is compared to study dated 08/22/2023 and correlat ed with chest CT dated 08/23/2023. The examination is degraded by portable technique, large body habit us, and apical lordotic positioning. The heart is enlarged. The pulmonary vasculature is noncongested . There is bibasilar scarring/atelectasis. No airspace consolidation or large pleural effusion is vanessa ntified. No pneumothorax is seen. There is chronic deformity of the left clavicle. IMPRESSION: Cardiomegaly with no acute cardiopulmonary abnormality identified. ACT 112: Negative or not required by law. Electronically signed by: Misael Lopez M.D. 09/19/2023 5:33 PM
[2023-09-19 17:52] LABS: Basophils # (auto) 0.11 K/uL (0.00-0.20); Basophils % (auto) 0.6 %; Eosinophils # (auto) 0.65 K/uL (0.00-0.50); Eosinophils % (auto) 3.4 %; Hematocrit (blood only) 45.1 % (42.0-52.0); Hemoglobin 14.8 g/dl (14.0-18.0); Immature Granulocytes # (auto) 0.09 K/uL (0.01-0.20); Immature Granulocytes % (auto) 0.5 %; Lymphocytes % (auto) 15.6 %; Mean Corpuscular Hemoglobin 25.4 pg (25.0-34.0); Mean Corpuscular Hgb Conc 32.8 g/dL (32.0-36.0); Mean Corpuscular Volume 77.5 fL (80.0-100.0); Mean Platelet Volume 10.7 fL (9.4-12.4); Monocytes # (auto) 1.27 K/uL (0.11-0.59); Monocytes % (auto) 6.6 %; Neutrophils % (auto) 73.3 %; Platelet Count 250 K/uL (130-400); RDW Coefficient of Variation 22.1 % (11.5-14.5); RDW Standard Deviation 58.7 fL (36.4-46.3); Red Blood Count 5.82 M/uL (4.70-6.10); White Blood Count 19.22 K/ul (4.8-10.8)
[2023-09-19 18:08] LABS: HCO3 VBG 29 mmol/L; Oxygen Saturation VBG < 60.0 %; PCO2 VBG 57 mmHg (38-50); PO2 VBG 32 mmHg; pH VBG 7.32 (7.36-7.41)
[2023-09-19 18:14] LABS: Anisocytosis Present; Poikilocytosis Present
[2023-09-19 18:41] LABS: Troponin I High Sensitivity 6.5 pg/ml (0-20)
[2023-09-19 18:42] LABS: Alanine Aminotransferase 24 U/L (7-52); Albumin Level 3.8 gm/dl (3.4-5.0); Alkaline Phosphatase 116 U/L (34-104); Anion Gap 10 (3-11); Aspartate Aminotransferase 32 U/L (13-39); BUN Creatinine Ratio 4.8 (10-20); Bilirubin,Total 0.8 mg/dl (0.2-1.0); Blood Urea Nitrogen 23 mg/dl (6-23); Carbon Dioxide 28 mmol/L (21-32); Chloride 94 mmol/L (98-107); Est GFR (African American) 14.8 ml/min; Est GFR (Non-African American) 12.8 ml/min; Globulin 3.7 gm/dl (2.5-4.0); Glucose 183 mg/dl (70-99(Fasting)); Lipase 26 U/L (11-82); Potassium 3.8 mmol/L (3.5-5.1); Sodium 132 mmol/L (136-145); Total Protein 7.5 gm/dl (6.0-8.3)
[2023-09-19 18:56] LABS: Partial Thromboplastin Ratio 2.6; Partial Thromboplastin Time 74 Seconds (21-31); Prothrombin Time > 90.0 Seconds (9.0-12.0)
[2023-09-19 18:59] LABS: INR > 9.5 (0.9-1.1)
[2023-09-19] MEDS ORDERED: SODIUM CHLORIDE 0.9% 1,000 ML IV ONE (19:00)
[2023-09-19 19:18] LABS: Appearance Urine Turbid (Clear); Bacteria Urine Automated Negative (Negative); Blood Urine 3+ (Negative); Color Urine Dark Yellow; Epithelial Cell Urine Auto >30 /lpf (0-5); Glucose Urine UA Negative (Negative); Ketones Urine 1+ (Negative); Leukocyte Esterase Urine 2+ (Negative); Nitrite Urine Negative (Negative); Protein Urine 1+ (Negative); Specific Gravity Urine 1.022 (1.000-1.030); Urobilinogen Urine Negative (Negative); WBC Urine Automated >30 /hpf (0-5)
[2023-09-19 19:20] LABS: Bilirubin Urine 1+ (Negative)
[2023-09-19 19:29] LABS: Mucus Urine Present (None Prsent)
[2023-09-19] MEDS ORDERED: AZTREONAM 2,000 MG in DEXTROSE 5% MINI-B 100 ML IV STA (20:12)
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
[2023-09-19] MEDS ORDERED: levoFLOXacin/D5W 750 MG/150 ML BAG IV STA (20:29)
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
[2023-09-20] MEDS ORDERED: POLYETHYLENE (MIRALAX) 17 GM PACK PO PRN (01:02)
[2023-09-20] MEDS ORDERED: BENZONATATE 100 MG CAPSULE PO PRN (01:02)
[2023-09-20] MEDS ORDERED: ALBUTEROL HFA 8 GM INHALER INH PRN (01:02)
[2023-09-20] MEDS ORDERED: hydrOXYzine HCl 25 MG TAB PO PRN (01:02)
[2023-09-20] MEDS ORDERED: NITROGLYCERIN SL 0.4 MG/TAB TAB SL PRN (01:02)
[2023-09-20] MEDS ORDERED: buprenorphine HCL 8 MG SUBL SL SCH (01:15)
[2023-09-20] MEDS ORDERED: SODIUM CHLORIDE 0.9% 1,000 ML IV SCH (02:00)
[2023-09-20] MEDS ORDERED: PHYTONADIONE 5 MG in DEXTROSE 5% 50 ML IV ONE (02:06)
[2023-09-20] MEDS ORDERED: ACETAMINOPHEN 500 MG TAB PO PRN (02:14)
[2023-09-20] MEDS: ACETAMINOPHEN 1,000 MG/100 ML VIAL IV PRN ×2 (02:40→21:31)
--- NOTE | 2023-09-20 02:51 | CT Scan Report ---
Exam(s): CT HEAD Without Contrast EXAM: CT Head Without Intravenous Contrast CLINICAL HISTORY: Reason for exam: ams. TECHNIQUE: Axial computed tomography images of the head/brain without intravenous contrast. CTDI is 46.2 mGy and DLP is 800.63 mGy-cm. Automated exposure control was utilized for the study. A dose lowering technique was utilized adhering to the principles of ALARA. COMPARISON: Comparison made to prior head CT from July 20, 2023. FINDINGS: Brain: Unremarkable. No hemorrhage. No significant white matter disease. No edema. Empty sella with enlarged diaphragmatic sellae. Ventricles: Unremarkable. No ventriculomegaly. Bones/joints: Unremarkable. No acute fracture. Soft tissues: Unremarkable. Sinuses: Chronic maxillary, right Frontal and ethmoid sinusitis. There is a small air-fluid level in the left maxillary sinus. There is No acute sinusitis. Mastoid air cells: Unremarkable as visualized. No mastoid effusion. IMPRESSION: No evidence of acute intracranial pathology. Electronically signed by: Akanksha Hernandez MD 09/20/23 02:50 AM
[2023-09-20] MEDS: MICONAZOLE NITRATE POWDER 85 GM EXT SCH ×3 (03:30→19:52)
[2023-09-20] MEDS ORDERED: SODIUM CHLORIDE 0.9% 500 ML IV ONE (03:55)
[2023-09-20] MEDS ORDERED: AZTREONAM 1,000 MG in DEXTROSE 5% MINI-B 100 ML IV SCH (04:00)
[2023-09-20] MEDS: AZTREONAM 2,000 MG in DEXTROSE 5% MINI-B 100 ML IV SCH ×3 (04:07→19:52)
[2023-09-20 06:28] LABS: Basophils # (auto) 0.06 K/uL (0.00-0.20); Basophils % (auto) 0.4 %; Eosinophils # (auto) 0.96 K/uL (0.00-0.50); Eosinophils % (auto) 6.1 %; Hematocrit (blood only) 40.3 % (42.0-52.0); Hemoglobin 13.2 g/dl (14.0-18.0); Immature Granulocytes # (auto) 0.06 K/uL (0.01-0.20); Immature Granulocytes % (auto) 0.4 %; Mean Corpuscular Hemoglobin 25.2 pg (25.0-34.0); Mean Corpuscular Hgb Conc 32.8 g/dL (32.0-36.0); Mean Corpuscular Volume 77.1 fL (80.0-100.0); Mean Platelet Volume 10.7 fL (9.4-12.4); Monocytes # (auto) 0.92 K/uL (0.11-0.59); Monocytes % (auto) 5.9 %; Neutrophils # (auto) 11.12 K/uL (1.40-6.50); Neutrophils % (auto) 71.2 %; Platelet Count 211 K/uL (130-400); RDW Coefficient of Variation 21.6 % (11.5-14.5); RDW Standard Deviation 58.3 fL (36.4-46.3); Red Blood Count 5.23 M/uL (4.70-6.10); White Blood Count 15.62 K/ul (4.8-10.8)
[2023-09-20 06:45] LABS: Albumin Level 3.1 gm/dl (3.4-5.0); BUN Creatinine Ratio 6.6 (10-20); Bilirubin,Total 0.7 mg/dl (0.2-1.0); Calcium 8.8 mg/dl (8.6-10.3); Creatinine Clr Calc Pharmacy 34.2 ml/min; Est GFR (African American) 17.2 ml/min; Est GFR (Non-African American) 14.8 ml/min; Globulin 3.1 gm/dl (2.5-4.0); Magnesium 1.4 mg/dl (1.7-2.4); Phosphorus 4.6 mg/dl (2.5-4.9); Potassium 3.3 mmol/L (3.5-5.1); Total Protein 6.2 gm/dl (6.0-8.3)
[2023-09-20] MEDS: ALBUT/IPRATROP 3MG/0.5MG NEB 3 ML VIAL INH SCH ×2 (06:55→12:23)
[2023-09-20] MEDS: BUDESONIDE 0.5 MG/2 ML VIAL (PULMICORT) INH SCH ×2 (06:55→19:43)
[2023-09-20 07:03] LABS: Prothrombin Time 65.5 Seconds (9.0-12.0)
[2023-09-20 07:12] LABS: Anisocytosis Present
[2023-09-20 07:26] LABS: INR 6.8 (0.9-1.1)
[2023-09-20] MEDS: FLUTICASONE PROPIONATE NA SPR 16 GM BTL SCH (08:58)
[2023-09-20] MEDS: DULoxetine HCL 60 MG CAP PO SCH (08:59)
[2023-09-20] MEDS: TAMSULOSIN HCL 0.4 MG CAP PO SCH (08:59)
[2023-09-20] MEDS: FINASTERIDE 5 MG TAB PO SCH (09:00)
[2023-09-20] MEDS: PANTOprazole 40 MG TAB PO SCH (09:00)
[2023-09-20] MEDS: MAGNESIUM OXIDE 400 MG TAB PO SCH (09:00)
[2023-09-20] MEDS: POTASSIUM CHLORIDE CRTAB 20 MEQ TABCR PO SCH ×2 (09:00→20:43)
[2023-09-20] MEDS: FAMOTIDINE 20 MG TAB PO SCH (09:00)
[2023-09-20] MEDS: FERROUS SULFATE 325 MG TAB PO SCH (09:00)
[2023-09-20] MEDS: ATORVASTATIN 40 MG TAB PO SCH (09:00)
[2023-09-20] MEDS: ISOSORBIDE DINITRATE 10 MG TAB PO SCH (09:00)
[2023-09-20] MEDS: FOLIC ACID 1 MG TAB PO SCH (09:00)
[2023-09-20] MEDS: buprenorphine HCL 8 MG SUBL SL SCH ×2 (09:00→20:41)
[2023-09-20] MEDS: GABAPENTIN 800 MG TAB PO SCH ×3 (09:01→20:42)
[2023-09-20] MEDS: MAGNESIUM SULFATE / D5W 1 GM/100 ML BAG IV SCH ×2 (09:01→11:17)
[2023-09-20] MEDS: FLUTICASONE/VILANTEROL 100/25MCG 14 PUFFS/INHALER INH SCH (09:01)
[2023-09-20] MEDS: ASPIRIN 81 MG ECTAB PO SCH (09:15)
[2023-09-20] MEDS ORDERED: DEXTROSE 50% 50 ML SYRINGE IV PRN (09:39)
[2023-09-20] MEDS ORDERED: CARBOHYDRATES FOR HYPOGLYCEMIA PO PRN (09:39)
[2023-09-20] MEDS ORDERED: GLUCOSE 40% GEL 15 GM TUBE PO PRN (09:39)
[2023-09-20] MEDS ORDERED: GLUCOSE 10 TAB/TUBE PO PRN (09:39)
[2023-09-20] MEDS ORDERED: GLUCAGON FOR INJ 1 MG VIAL SQ PRN (09:39)
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
[2023-09-20] MEDS: PLASMA-LYTE A 1,000 ML IV SCH (12:03)
[2023-09-20] MEDS: INSULIN ASPART PER UNIT CHARGE SC SCH ×3 (12:13→20:45)
[2023-09-20] MEDS ORDERED: ALBUT/IPRATROP 3MG/0.5MG NEB 3 ML VIAL INH PRN (13:21)
--- NOTE | 2023-09-20 14:23 | Electrocardiogram Report ---
Test Reason : Blood Pressure : / mmHG Vent. Rate : 074 BPM Atrial Rate : 074 BPM P-R Int : 174 ms QRS Dur : 108 ms QT Int : 370 ms P-R-T Axes : 005 051 091 degrees QTc Int : 410 ms Normal sinus rhythm Incomplete right bundle branch block Diffuse Nonspecific ST and T wave abnormality Abnormal ECG When compared with ECG of 24-AUG-2023 02:08, Premature supraventricular complexes are no longer Present Otherwise no significant change Confirmed by Da Browning ([id number]) on 09/20/2023 2:23:22 PM Referred By: REFERRED SELF Confirmed By:Da Browning
[2023-09-20] MEDS: buprenorphine HCL 2 MG SUBL SL SCH (15:48)
--- NOTE | 2023-09-20 15:50 | Hospitalist Progress Note ---
Date of Service September 20, 2023 Assessment & Plan (1) Acute UTI (urinary tract infection): (2) Acute renal failure (ARF): (3) Elevated INR: (4) AMS (altered mental status): Plan Patient is a 53 yr male yoM with PMhx significant for chronic diastolic heart failure, history CAD/STEMI, history subdural hematoma/subarachnoid hemorrhage, hypertension, hyperlipidemia, COPD, recurrent PE on Coumadin, DM 2,recurrent UTIs secondary to BPH/chronic urinary retention indwelling Lloyd catheter, chronic anemia, chronic pain on buprenorphine, hx MRSA/VRE admitted with AMS and decreased urinary output. Complicated UTI Chronic urinary retention indwelling Lloyd catheter Dehydration -- Blood culture pending Urine culture--mixed isabel Normal lactic acid Empirically started on Levaquin, azithromycin Catheter exchanged while in ED Urology on board Adjust antibiotics based on cultures Acute metabolic encephalopathy secondary to above Reported history of falls --CT head:No evidence of acute intracranial pathology. --CXR:Cardiomegaly with no acute cardiopulmonary abnormality identified. For precautions PT OT as able MAHAMED Cr 4.82>4.2 Hold home diuretics Avoid nephrotoxic agents as able Monitor renal function Continue IV fluids Appreciate nephrology input Bladder scan as needed to monitor for any retention Recurrent PE on coumadin Supratherapeutic INR Hold warfarin INR >9.5>6.8 Received Vit K 5mg Monitor INR COPD Ongoing tobacco use disorder Currently no signs of exacerbation Continue home inhalers Chronic pain syndrome On Suboxone Chronic diastolic CHF Monitor volume status Resume diuretics as able Hyperlipidemia on statin BPH Continue Proscar, Flomax Morbid obesity BMI 55 DVT Px: Supratherapeutic INR CODE STATUS Full Code Admission and Anticipated Discharge Date Admission Date: September 19, 2023 Subjective Patient is seen and examined at bedside States feeling better today More alert, awake, oriented today Reports generalized weakness Denies any chest pain, dizziness, nausea, vomiting, abdominal pain, dyspnea "I don't feel myself" Review of Systems Review of Systems: All systems reviewed & are unremarkable except as noted in Subjective Physical Exam Physical Exam: Physical Exam: Vitals signs as noted above General Appearance:Morbidly Obese, no apparent distress Head: normocephalic, Atraumatic Eyes: normal inspection, EOMI Neck: supple, Trachea midline Respiratory/Chest: Decreased breath sounds, +minimal wheeze, No accessory muscle use Cardiovascular: S1, S2, No murmur Abdomen/GI:Soft, Non tender, Bowel sounds present Extremities/Musculoskeletal:normal inspection, chronic venous stasis changes, minimal pedal edema Neurologic/Psych:AAOX3, grossly no focal neurological deficits Skin: normal color, warm Results & Data Results & Data Vital Signs (Past 12 Hours) Vital Signs Temp Pulse Pulse Resp BP Pulse Ox O2 Del Method 09/20/23 14:33 36.4 C L 68 22 112/70 95 Room Air 09/20/23 12:23 65 16 99 Nasal Cannula 09/20/23 11:21 71 16 102/58 L 98 Nasal Cannula 09/20/23 07:10 63 09/20/23 06:57 63 16 97 Nasal Cannula 09/20/23 06:00 66 16 118/59 L 94 Nasal Cannula 09/20/23 05:00 65 16 103/55 L 95 Nasal Cannula 09/20/23 04:00 65 16 93/45 L 98 Nasal Cannula 09/20/23 03:54 67 16 73/43 L 98 Nasal Cannula O2 Flow Rate 09/20/23 14:33 09/20/23 12:23 2.5 09/20/23 11:21 4 09/20/23 07:10 09/20/23 06:57 3 09/20/23 06:00 4 09/20/23 05:00 4 09/20/23 04:00 09/20/23 03:54 4 Laboratory Results Short CBC 09/19/23 09/20/23 Range/Units 17:25 05:56 WBC 19.22 H 15.62 H (4.8-10.8) K/ul Hgb 14.8 13.2 L (14.0-18.0) g/dl Hct 45.1 40.3 L (42.0-52.0) % Plt Count 250 211 (130-400) K/uL BMP 09/19/23 09/20/23 17:25 05:56 Sodium 132 L 132 L Potassium 3.8 3.3 L Chloride 94 L 95 L Carbon Dioxide 28 27 BUN 23 28 H Creatinine 4.82 H* 4.26 H D Glucose 183 H 229 H Calcium 10.0 8.8 Liver Function 09/19/23 09/20/23 Range/Units 17:25 05:56 Total Bilirubin 0.8 0.7 (0.2-1.0) mg/dl AST 32 30 (13-39) U/L ALT 24 21 (7-52) U/L Alkaline Phosphatase 116 H 103 (34-104) U/L Albumin 3.8 3.1 L (3.4-5.0) gm/dl Urine 09/19/23 Range/Units 19:08 Urine Color Dark Yellow Urine Appearance Turbid A (Clear) Urine pH 5.0 (4.5-7.5) Ur Specific Gates 1.022 (1.000-1.030) Urine Protein 1+ H (Negative) Urine Glucose (UA) Negative (Negative) (2) Acute renal failure (ARF) Acute renal failure type: unspecified Qualified Code(s): N17.9 - Acute kidney failure, unspecified (4) AMS (altered mental status) Altered mental status type: unspecified Qualified Code(s): R41.82 - Altered mental status, unspecified
[2023-09-20] MEDS: ONDANSETRON 4 MG OD TAB PO PRN (15:53)
[2023-09-20] MEDS ORDERED: buprenorphine HCL 2 MG SUBL SL STA (16:07)
[2023-09-20] MEDS: LANTUS PER UNIT CHARGE SC SCH (20:45)
[2023-09-20] MEDS: PROMETHAZINE HCL 12.5 MG in SODIUM CHLORIDE 0.9% 50 ML IV PRN (20:49)
[2023-09-20] MEDS: CYCLOBENZAPRINE HCL 10 MG TAB PO PRN (21:59)
[2023-09-20] MEDS: METOPROLOL SUCC 25MG EXT REL TAB PO SCH (21:59)
[2023-09-21] MEDS: MICONAZOLE NITRATE POWDER 85 GM EXT SCH ×4 (00:35→17:13)
[2023-09-21] MEDS: PLASMA-LYTE A 1,000 ML IV SCH ×2 (00:35→12:44)
[2023-09-21] MEDS: AZTREONAM 2,000 MG in DEXTROSE 5% MINI-B 100 ML IV SCH ×3 (03:11→20:33)
[2023-09-21] MEDS: ONDANSETRON 4 MG OD TAB PO PRN (04:09)
[2023-09-21] MEDS: PANTOprazole 40 MG TAB PO SCH (06:19)
[2023-09-21 06:43] LABS: Hematocrit (blood only) 38.7 % (42.0-52.0); Hemoglobin 12.8 g/dl (14.0-18.0); Mean Corpuscular Hemoglobin 25.2 pg (25.0-34.0); Mean Corpuscular Hgb Conc 33.1 g/dL (32.0-36.0); Mean Corpuscular Volume 76.3 fL (80.0-100.0); Platelet Count 210 K/uL (130-400); RDW Coefficient of Variation 21.2 % (11.5-14.5); RDW Standard Deviation 56.5 fL (36.4-46.3); Red Blood Count 5.07 M/uL (4.70-6.10); White Blood Count 10.06 K/ul (4.8-10.8)
[2023-09-21 07:04] LABS: Albumin Level 3.2 gm/dl (3.4-5.0); BUN Creatinine Ratio 11.6 (10-20); Bilirubin,Total 0.7 mg/dl (0.2-1.0); Calcium 8.9 mg/dl (8.6-10.3); Creatinine Clr Calc Pharmacy 66.4 ml/min; Est GFR (African American) 37.2 ml/min; Est GFR (Non-African American) 32.1 ml/min; Globulin 3.1 gm/dl (2.5-4.0); Magnesium 1.8 mg/dl (1.7-2.4); Phosphorus 3.9 mg/dl (2.5-4.9); Potassium 3.1 mmol/L (3.5-5.1); Total Protein 6.3 gm/dl (6.0-8.3)
[2023-09-21 07:12] LABS: INR 1.7 (0.9-1.1); Prothrombin Time 17.8 Seconds (9.0-12.0)
[2023-09-21] MEDS: BUDESONIDE 0.5 MG/2 ML VIAL (PULMICORT) INH SCH ×2 (07:19→20:08)
[2023-09-21] MEDS: PROMETHAZINE HCL 12.5 MG in SODIUM CHLORIDE 0.9% 50 ML IV PRN ×2 (08:33→18:02)
[2023-09-21] MEDS: FLUTICASONE/VILANTEROL 100/25MCG 14 PUFFS/INHALER INH SCH (08:37)
[2023-09-21] MEDS: FLUTICASONE PROPIONATE NA SPR 16 GM BTL SCH (08:37)
[2023-09-21] MEDS: buprenorphine HCL 8 MG SUBL SL SCH ×2 (08:47→20:39)
[2023-09-21] MEDS: MAGNESIUM OXIDE 400 MG TAB PO SCH (09:29)
[2023-09-21] MEDS: INSULIN ASPART PER UNIT CHARGE SC SCH ×4 (09:29→20:31)
[2023-09-21] MEDS: FAMOTIDINE 20 MG TAB PO SCH (09:30)
[2023-09-21] MEDS: TAMSULOSIN HCL 0.4 MG CAP PO SCH (09:30)
[2023-09-21] MEDS: FOLIC ACID 1 MG TAB PO SCH (09:30)
[2023-09-21] MEDS: DULoxetine HCL 60 MG CAP PO SCH (09:30)
[2023-09-21] MEDS: ATORVASTATIN 40 MG TAB PO SCH (09:30)
[2023-09-21] MEDS: GABAPENTIN 800 MG TAB PO SCH ×3 (09:30→20:33)
[2023-09-21] MEDS: METOPROLOL SUCC 25MG EXT REL TAB PO SCH ×2 (09:31→21:06)
[2023-09-21] MEDS: FINASTERIDE 5 MG TAB PO SCH (09:31)
[2023-09-21] MEDS: FERROUS SULFATE 325 MG TAB PO SCH (09:31)
[2023-09-21] MEDS: ASPIRIN 81 MG ECTAB PO SCH (09:31)
[2023-09-21] MEDS: SENNA 8.6 MG TAB PO PRN (09:32)
[2023-09-21] MEDS: POTASSIUM CHLORIDE CRTAB 20 MEQ TABCR PO SCH ×4 (09:47→20:34)
[2023-09-21] MEDS: ISOSORBIDE DINITRATE 10 MG TAB PO SCH (10:27)
[2023-09-21] MEDS: ACETAMINOPHEN 1,000 MG/100 ML VIAL IV PRN ×2 (10:31→21:49)
--- NOTE | 2023-09-21 12:30 | Nephrology Progress Note ---
Date of Service September 21, 2023 Assessment & Plan (1) Acute renal failure (ARF): Plan: improving acute renal failure likely due to prerenal proccess versus obstruction in setting of possible UTI. Creatinine peaked at 4.2 from a normal baseline 3 weeks prior to admission > improved to 2.6 today. Electrolytes acceptable except for hypokalemia. Chest x-ray showed cardiomegaly but no acute cardiopulmonary process. No indication for dialysis. Admission cxs remain NGTD but pt w/ hx of E faecalist UTI. -Continue IV fluids but will change from Plasma-Lyte at 80ml/h > to same fluid/rate but w/ 40 mEq K /L. -increased K supplements from 20 mEq bid > 20 mEq qid >recheck bmp for 1800 ordered -Monitor input output -Hold diuretics again today Care coordinated w/ Dr Wright. (2) Acute UTI (urinary tract infection): Plan: Patient is on Levaquin renally dosed per primary team. (3) Acute hypokalemia: Plan: increased K supplement from tid to qid and added K to plasmalyte -recheck bmp 1800 >daily bmp. Admission and Anticipated Discharge Date Admission Date: September 19, 2023 Subjective c/o emesis, N, constipation; denies severe abdominal pain. endorses 100 lb wt loss past month d/t GI upset Review of Systems 2 Review of Systems: All systems reviewed & are unremarkable except as noted in Subjective Physical Exam 2 Constitutional: well developed (no acute distress), + morbidly obese and cooperative Eyes: EOM intact bilaterally ENMT: Ears: no external ear abnormality Nose: no external nose abnormality Mouth: + dry oral mucous membranes Neck: no nuchal rigidity Respiratory: normal respiratory effort Auscultation: + diminished lung sounds Cardiovascular: Rate/Rhythm: regular rate (HS distant) and regular rhythm E xtremities: + edema Gastrointestinal (Abdomen): Inspection/Auscultation: normal bowel sounds P ercussion/Palpation: abdomen soft; abdomen nontender Musculoskeletal: Extremities: strength 5/5 throughout Skin: no rashes, warm and dry Neurologic: bolivar, fluent speech, no tremor Psychiatric: Orientation: alert, oriented to person and oriented to place Results & Data Vital Signs (Past 12 Hours) Vital Signs Temp Pulse Resp BP BP Pulse Ox O2 Del Method 09/21/23 11:29 36.7 C 70 19 118/56 L 93 Room Air 09/21/23 07:54 Nasal Cannula 09/21/23 07:51 36.4 C L 70 22 105/63 95 Nasal Cannula 09/21/23 07:19 68 18 97 Nasal Cannula 09/21/23 03:39 36.4 C L 74 18 110/72 96 Nasal Cannula O2 Flow Rate 09/21/23 11:29 09/21/23 07:54 4 09/21/23 07:51 4 09/21/23 07:19 4 09/21/23 03:39 4 Laboratory Results 09/21/23 06:05 09/21/23 06:05 (1) Acute renal failure (ARF) Acute renal failure type: unspecified Qualified Code(s): N17.9 - Acute kidney failure, unspecified
[2023-09-21] MEDS: buprenorphine HCL 2 MG SUBL SL SCH (13:04)
[2023-09-21] MEDS: ONDANSETRON INJ 2 MG/ML 2 ML VIAL IV PRN (13:05)
[2023-09-21] MEDS: POTASSIUM CHLORIDE 40 MEQ in PLASMA-LYTE A 1,000 ML IV SCH (13:50)
--- NOTE | 2023-09-21 13:55 | XRay Report ---
KUB HISTORY: Acute generalized abdominal pain with nausea and vomiting Intractable Nausea, Vomiting COMPARISON: CT abdomen and pelvis 07/20/2023 FINDINGS: Limited exam secondary to patient body habitus/morbid obesity. Cardiomegaly. Mild linear le ft subsegmental atelectasis versus scarring. Probable cardiac loop recorder device. There is moderate gaseous distention of the stomach. The bowel gas pattern is nonobstructive. Moderate to extensive co lonic fecal retention. Renal shadows are obscured by bowel gas. The liver appears prominent in size. No renal calculi. No ureteral calculi. No pneumoperitoneum or pneumatosis. No fracture. IMPRESSION: 1. Gaseous distention of the stomach with nonobstructive bowel gas pattern. 2. Moderate to extensive colonic fecal retention. ACT 112: Negative or not required by law. The above report was generated using voice recognition software. It may contain grammatical, syntax o r spelling errors. Electronically signed by: Shelton Apodaca M.D. 09/21/2023 1:53 PM
[2023-09-21] MEDS: WARFARIN SOD 2.5 MG TAB PO SCH (16:50)
[2023-09-21] MEDS ORDERED: bisacodyL 10 MG SUPP PR PRN (16:54)
--- NOTE | 2023-09-21 16:56 | Hospitalist Progress Note ---
Date of Service September 21, 2023 Assessment & Plan (1) Acute UTI (urinary tract infection): (2) Acute renal failure (ARF): (3) Elevated INR: (4) AMS (altered mental status): Plan Patient is a 53 yr male yoM with PMhx significant for chronic diastolic heart failure, history CAD/STEMI, history subdural hematoma/subarachnoid hemorrhage, hypertension, hyperlipidemia, COPD, recurrent PE on Coumadin, DM 2,recurrent UTIs secondary to BPH/chronic urinary retention indwelling Lloyd catheter, chronic anemia, chronic pain on buprenorphine, hx MRSA/VRE admitted with AMS and decreased urinary output. CAUTI Chronic urinary retention indwelling Lloyd catheter Possible sepsis Dehydration -- Blood culture negative to date Urine culture--mixed isabel Normal lactic acid Empirically started on Levaquin, azithromycin Catheter exchanged while in ED Urology on board Adjust antibiotics based on cultures Leukocytosis trending down Acute metabolic encephalopathy secondary to above Reported history of falls --CT head:No evidence of acute intracranial pathology. --CXR:Cardiomegaly with no acute cardiopulmonary abnormality identified. Fall precautions PT OT as able Mental status back to baseline MAHAMED Cr 4.82>4.2>2.5 Hold home diuretics Avoid nephrotoxic agents as able Monitor renal function Continue IV fluids Appreciate nephrology input Bladder scan as needed to monitor for any retention Hypokalemia Replete electrolytes as needed Fecal retention -KUB:Gaseous distention of the stomach with nonobstructive bowel gas pattern. Moderate to extensive colonic fecal retention. Continue bowel regimen Encouraged to ambulate Recurrent PE on coumadin Supratherapeutic INR INR >9.5>6.8>1.7 Received Vit K 5mg Monitor INR Resume Coumadin at low-dose COPD Ongoing tobacco use disorder Currently no signs of exacerbation Continue home inhalers Chronic pain syndrome On Suboxone Chronic diastolic CHF Monitor volume status Resume diuretics as able Hyperlipidemia on statin BPH Continue Proscar, Flomax Morbid obesity BMI 55 DVT Px: Coumadin CODE STATUS Full Code Admission and Anticipated Discharge Date Admission Date: September 19, 2023 Subjective Patient is seen and examined at bedside States having multiple episodes of nausea, vomiting overnight and this morning KUB suggestive of fecal retention Denies any chest pain, dizziness, abdominal pain, dyspnea Last bowel movement 2 days ago Review of Systems Review of Systems: All systems reviewed & are unremarkable except as noted in Subjective Physical Exam Physical Exam: Physical Exam: Vitals signs as noted above General Appearance:Morbidly Obese, no apparent distress Head: normocephalic, Atraumatic Eyes: normal inspection, EOMI Neck: supple, Trachea midline Respiratory/Chest: Decreased breath sounds, CTA, No accessory muscle use Cardiovascular: S1, S2, No murmur Abdomen/GI:Soft, Non tender, Bowel sounds present Extremities/Musculoskeletal:normal inspection, chronic venous stasis changes, minimal pedal edema Neurologic/Psych:AAOX3, grossly no focal neurological deficits Skin: normal color, warm Results & Data Results & Data Vital Signs (Past 12 Hours) Vital Signs Temp Pulse Resp BP Pulse Ox O2 Del Method O2 Flow Rate 09/21/23 15:08 36.6 C 82 19 121/70 93 Room Air 09/21/23 11:29 36.7 C 70 19 118/56 L 93 Room Air 09/21/23 07:54 Nasal Cannula 4 09/21/23 07:51 36.4 C L 70 22 105/63 95 Nasal Cannula 4 09/21/23 07:19 68 18 97 Nasal Cannula 4 Laboratory Results Short CBC 09/21/23 Range/Units 06:05 WBC 10.06 (4.8-10.8) K/ul Hgb 12.8 L (14.0-18.0) g/dl Hct 38.7 L (42.0-52.0) % Plt Count 210 (130-400) K/uL BMP 09/21/23 06:05 Sodium 135 L Potassium 3.1 L Chloride 94 L Carbon Dioxide 31 BUN 26 H Creatinine 2.25 H D Glucose 190 H Calcium 8.9 Liver Function 09/21/23 Range/Units 06:05 Total Bilirubin 0.7 (0.2-1.0) mg/dl AST 24 (13-39) U/L ALT 21 (7-52) U/L Alkaline Phosphatase 112 H (34-104) U/L Albumin 3.2 L (3.4-5.0) gm/dl (2) Acute renal failure (ARF) Acute renal failure type: unspecified Qualified Code(s): N17.9 - Acute kidney failure, unspecified (4) AMS (altered mental status) Altered mental status type: unspecified Qualified Code(s): R41.82 - Altered mental status, unspecified
[2023-09-21] MEDS ORDERED: bisacodyL 10 MG SUPP PR ONE (16:58)
[2023-09-21 19:05] LABS: BUN Creatinine Ratio 15.8 (10-20); Calcium 9.1 mg/dl (8.6-10.3); Creatinine Clr Calc Pharmacy 102.3 ml/min; Est GFR (African American) 62.7 ml/min; Est GFR (Non-African American) 54.1 ml/min; Potassium 3.6 mmol/L (3.5-5.1)
[2023-09-21] MEDS: POLYETHYLENE (MIRALAX) 17 GM PACK PO PRN (20:31)
[2023-09-21] MEDS: DOCUSATE SODIUM 100 MG CAP PO PRN (20:31)
[2023-09-21] MEDS: LANTUS PER UNIT CHARGE SC SCH (20:32)
[2023-09-21] MEDS ORDERED: levoFLOXacin 750 MG TAB PO SCH (21:00)
[2023-09-22] MEDS: MICONAZOLE NITRATE POWDER 85 GM EXT SCH ×5 (00:21→23:57)
[2023-09-22] MEDS: POTASSIUM CHLORIDE 40 MEQ in PLASMA-LYTE A 1,000 ML IV SCH (02:33)
[2023-09-22] MEDS: AZTREONAM 2,000 MG in DEXTROSE 5% MINI-B 100 ML IV SCH ×2 (04:43→12:13)
[2023-09-22] MEDS: PANTOprazole 40 MG TAB PO SCH (05:49)
[2023-09-22 06:57] LABS: BUN Creatinine Ratio 17.4 (10-20); Calcium 9.4 mg/dl (8.6-10.3); Creatinine Clr Calc Pharmacy 133.3 ml/min; Est GFR (African American) 89.3 ml/min; Est GFR (Non-African American) 77.1 ml/min; Magnesium 1.9 mg/dl (1.7-2.4); Potassium 3.7 mmol/L (3.5-5.1)
[2023-09-22 07:12] LABS: INR 1.4 (0.9-1.1); Prothrombin Time 14.6 Seconds (9.0-12.0)
[2023-09-22] MEDS: BUDESONIDE 0.5 MG/2 ML VIAL (PULMICORT) INH SCH ×2 (07:25→17:55)
[2023-09-22 07:26] LABS: Hematocrit (blood only) 40.8 % (42.0-52.0); Mean Corpuscular Hgb Conc 31.9 g/dL (32.0-36.0); Mean Corpuscular Volume 78.6 fL (80.0-100.0); Mean Platelet Volume 11.2 fL (9.4-12.4); Platelet Count 189 K/uL (130-400); Platelet Estimate Normal (Normal); RDW Coefficient of Variation 21.5 % (11.5-14.5); RDW Standard Deviation 60.3 fL (36.4-46.3); Red Blood Count 5.19 M/uL (4.70-6.10); White Blood Count 7.16 K/ul (4.8-10.8)
[2023-09-22] MEDS: POTASSIUM CHLORIDE CRTAB 20 MEQ TABCR PO SCH ×4 (08:31→20:27)
[2023-09-22] MEDS: DOCUSATE SODIUM 100 MG CAP PO PRN ×2 (08:31→20:28)
[2023-09-22] MEDS: POLYETHYLENE (MIRALAX) 17 GM PACK PO PRN ×2 (08:31→20:29)
[2023-09-22] MEDS: buprenorphine HCL 8 MG SUBL SL SCH ×2 (08:31→20:29)
[2023-09-22] MEDS: SENNA 8.6 MG TAB PO PRN (08:33)
[2023-09-22] MEDS: ISOSORBIDE DINITRATE 10 MG TAB PO SCH (08:33)
[2023-09-22] MEDS: GABAPENTIN 800 MG TAB PO SCH ×3 (08:33→20:27)
[2023-09-22] MEDS: FAMOTIDINE 20 MG TAB PO SCH (08:34)
[2023-09-22] MEDS: ASPIRIN 81 MG ECTAB PO SCH (08:34)
[2023-09-22] MEDS: MAGNESIUM OXIDE 400 MG TAB PO SCH (08:34)
[2023-09-22] MEDS: DULoxetine HCL 60 MG CAP PO SCH (08:35)
[2023-09-22] MEDS: METOPROLOL SUCC 25MG EXT REL TAB PO SCH ×2 (08:35→20:27)
[2023-09-22] MEDS: FOLIC ACID 1 MG TAB PO SCH (08:35)
[2023-09-22] MEDS: FLUTICASONE/VILANTEROL 100/25MCG 14 PUFFS/INHALER INH SCH (08:35)
[2023-09-22] MEDS: TAMSULOSIN HCL 0.4 MG CAP PO SCH (08:36)
[2023-09-22] MEDS: FLUTICASONE PROPIONATE NA SPR 16 GM BTL SCH (08:36)
[2023-09-22] MEDS: ATORVASTATIN 40 MG TAB PO SCH (08:36)
[2023-09-22] MEDS: FERROUS SULFATE 325 MG TAB PO SCH (08:37)
[2023-09-22] MEDS: INSULIN ASPART PER UNIT CHARGE SC SCH ×4 (08:38→20:32)
[2023-09-22] MEDS: FINASTERIDE 5 MG TAB PO SCH (08:38)
[2023-09-22] MEDS: ACETAMINOPHEN 1,000 MG/100 ML VIAL IV PRN ×2 (08:46→20:30)
[2023-09-22] MEDS: PROMETHAZINE HCL 12.5 MG in SODIUM CHLORIDE 0.9% 50 ML IV PRN (09:11)
[2023-09-22] MEDS: ONDANSETRON INJ 2 MG/ML 2 ML VIAL IV PRN (12:13)
[2023-09-22] MEDS: buprenorphine HCL 2 MG SUBL SL SCH (13:31)
[2023-09-22] MEDS ORDERED: bisacodyL 5 MG TABEC PO ONE ×2 (14:00→17:40)
[2023-09-22] MEDS: WARFARIN SOD 2.5 MG TAB PO SCH (16:19)
--- NOTE | 2023-09-22 16:24 | Hospitalist Progress Note ---
Date of Service September 22, 2023 Assessment & Plan (1) Acute UTI (urinary tract infection): (2) Acute renal failure (ARF): (3) Elevated INR: (4) AMS (altered mental status): Plan Mr. Milner is a 53 year old gentleman with a past medical history significant for chronic diastolic heart failure, CAD/STEMI, prior subdural hematoma/subarachnoid hemorrhage, hypertension, hyperlipidemia, COPD, recurrent PE on Coumadin, DM 2,recurrent UTIs secondary to BPH/chronic urinary retention indwelling Fontaine catheter, chronic anemia, chronic pain on buprenorphine, hx MRSA/VRE who presented on 09/19 with AMS and decreased UOP. Patient was admitted for evaluation and management of MAHAMED in setting of CAUTI. Patient is readmitted multiple times over the course of the last year. When discussing barriers to health care as an outpatient, transportation and patient's habitus are limiting factors, as well as patient's understanding of utilization of health care resources and access to community services. #CAUTI *POA #Chronic urinary retention indwelling Fontaine catheter Blood culture negative to date Urine culture--mixed isabel Normal lactic acid Empirically started on Levaquin for 5 day course, d/c aztreonam Catheter exchanged while in ED 09/19 Urology signed off and discussed consider removing the fontaine, Adjust antibiotics based on cultures Leukocytosis trending down #Acute metabolic encephalopathy secondary to above *resolved Reported history of falls --CT head:No evidence of acute intracranial pathology. --CXR:Cardiomegaly with no acute cardiopulmonary abnormality identified. Fall precautions PT OT as able Mental status back to baseline #MAHAMED *resolved Cr 4.82>4.2>2.5 >1.09 Hold home diuretics Avoid nephrotoxic agents as able Monitor renal function Discontinue IV fluids Appreciate nephrology input #Hypokalemia Replete electrolytes as needed #Fecal retention -KUB:Gaseous distention of the stomach with nonobstructive bowel gas pattern. Moderate to extensive colonic fecal retention. Continue bowel regimen Encouraged to ambulate as able #Recurrent PE on coumadin Supratherapeutic INR INR >9.5>6.8>1.7 Received Vit K 5mg Monitor INR Resume Coumadin at low-dose #COPD Ongoing tobacco use disorder Currently no signs of exacerbation Continue home inhalers #Chronic pain syndrome On Suboxone #Chronic diastolic CHF Monitor volume status Resume diuretics as able #Hyperlipidemia on statin #BPH Continue Proscar, Flomax #Morbid obesity BMI 55 DVT Px: Coumadin CODE STATUS Full Code Admission and Anticipated Discharge Date Admission Date: September 19, 2023 Subjective Reports generally upset stomach, still passing flatus reports chest pain with deep breath in and when eating Reports feeling upset with situation and feeling trapped about size, not sure "what to do" Would like a nurse to change his catheter at home, but states everyone ends up cancelling or goes wrong for one reason or another Review of Systems Review of Systems: All systems reviewed & are unremarkable except as noted in Subjective Physical Exam Constitutional: WD/WN, vitals as above Respiratory: normal respiratory effort, lungs clear to auscultation Cardiovascular: RRR, no murmur, no edema Gastrointestinal (Abdomen): normal bowel sounds, soft, nontender, no hepatosplenomegaly Skin: lymphedematous changes and dusky discoloration on bilateral lower extremeities Results & Data Results & Data Vital Signs (Past 12 Hours) Vital Signs Temp Pulse Pulse Resp BP Pulse Ox O2 Del Method 09/22/23 15:53 36.8 C 76 18 113/53 L 93 Room Air 09/22/23 11:09 36.6 C 71 19 134/69 98 Room Air 09/22/23 07:42 68 09/22/23 07:42 Room Air 09/22/23 07:30 36.3 C L 72 20 137/52 L 94 Nasal Cannula 09/22/23 07:26 88 16 91 Room Air O2 Flow Rate 09/22/23 15:53 09/22/23 11:09 09/22/23 07:42 09/22/23 07:42 09/22/23 07:30 4 09/22/23 07:26 (2) Acute renal failure (ARF) Acute renal failure type: unspecified Qualified Code(s): N17.9 - Acute kidney failure, unspecified (4) AMS (altered mental status) Altered mental status type: unspecified Qualified Code(s): R41.82 - Altered mental status, unspecified
--- NOTE | 2023-09-22 17:25 | Nephrology Progress Note ---
Date of Service September 22, 2023 Assessment & Plan (1) Acute renal failure (ARF): Plan: improving/all but resolved Stage 3 nonoliguric acute renal failure likely due to prerenal proccess versus obstruction in setting of possible UTI. Creatinine peaked at 4.2 from a normal baseline 3 weeks prior to admission > improved further to 1.1 today. Electrolytes acceptable w/ improving hyponatremia. Chest x-ray showed cardiomegaly but no acute cardiopulmonary process. No indication for dialysis. Admission cxs remain NGTD but pt w/ hx of E faecalis UTI. plasmalyte currently on hold -continue increased K supplements 20 mEq qid for today -Monitor input output -Hold diuretics again today -daily bmp while in house will sign off NEPHRO D/C RECS >>recommend trouble shooting w/ case management/d-c communications planner on how to get pt transportation to clinic appts >>will need nephro hospital d/c visit after d/c given severe MAHAMED > recommend w/ Dr Arizmendi and w/ BMP to be obtained 3-5 days before OV and ordered by renal nurse -recommend bmp also be obtained at hospital d/c f/u visit w/ PCP -hold diuretics one day more if feasible and consider resuming in 48-72 hours prior OP diuretic and potassium regimen -do not d/c on high dose potassium >> adjust as indicated Care coordinated w/ Dr Saenz. (2) Acute UTI (urinary tract infection): Plan: Patient is on Levaquin renally dosed per primary team. (3) Acute hypokalemia: Plan: improved on high dose K supplement po qid and added K in plasmalyte >daily bmp. Admission and Anticipated Discharge Date Admission Date: September 19, 2023 Subjective renal function improved; plasmalyte stopped midday. denies dyspnea or palpitations or orthopnea. tells me w/ his size it's hard to get to f/u appts b/c of lack of transportation Review of Systems 2 Review of Systems: All systems reviewed & are unremarkable except as noted in Subjective Physical Exam 2 Constitutional: well developed (no acute distress), + morbidly obese and cooperative Eyes: EOM intact bilaterally ENMT: Ears: no external ear abnormality Nose: no external nose abnormality Mouth: + dry oral mucous membranes Neck: no nuchal rigidity Respiratory: normal respiratory effort Auscultation: + diminished lung sounds Cardiovascular: Rate/Rhythm: regular rate (HS distant) and regular rhythm E xtremities: + edema Gastrointestinal (Abdomen): Inspection/Auscultation: normal bowel sounds P ercussion/Palpation: abdomen soft; abdomen nontender Musculoskeletal: Extremities: strength 5/5 throughout Skin: no rashes, warm and dry Psychiatric: Orientation: alert, oriented to person and oriented to place Results & Data Vital Signs (Past 12 Hours) Vital Signs Temp Pulse Pulse Resp BP Pulse Ox O2 Del Method 09/22/23 15:53 36.8 C 76 18 113/53 L 93 Room Air 09/22/23 11:09 36.6 C 71 19 134/69 98 Room Air 09/22/23 07:42 68 09/22/23 07:42 Room Air 09/22/23 07:30 36.3 C L 72 20 137/52 L 94 Nasal Cannula 09/22/23 07:26 88 16 91 Room Air O2 Flow Rate 09/22/23 15:53 09/22/23 11:09 09/22/23 07:42 09/22/23 07:42 09/22/23 07:30 4 09/22/23 07:26 Laboratory Results 09/22/23 06:05 09/22/23 06:05 (1) Acute renal failure (ARF) Acute renal failure type: unspecified Qualified Code(s): N17.9 - Acute kidney failure, unspecified
[2023-09-22] MEDS: CYCLOBENZAPRINE HCL 10 MG TAB PO PRN (20:28)
[2023-09-22] MEDS: levoFLOXacin 750 MG TAB PO SCH (20:28)
[2023-09-22] MEDS: LANTUS PER UNIT CHARGE SC SCH (20:33)
[2023-09-23] MEDS ORDERED: ACETAMINOPHEN 1,000 MG/100 ML VIAL IV STA ×3 (04:56→22:28)
[2023-09-23] MEDS: PANTOprazole 40 MG TAB PO SCH (05:33)
[2023-09-23] MEDS: MICONAZOLE NITRATE POWDER 85 GM EXT SCH ×4 (05:34→23:48)
[2023-09-23] MEDS: BUDESONIDE 0.5 MG/2 ML VIAL (PULMICORT) INH SCH ×2 (07:28→19:27)
[2023-09-23 08:31] LABS: Hematocrit (blood only) 41.6 % (42.0-52.0); Hemoglobin 13.1 g/dl (14.0-18.0); Mean Corpuscular Hemoglobin 25.2 pg (25.0-34.0); Mean Corpuscular Hgb Conc 31.5 g/dL (32.0-36.0); Mean Corpuscular Volume 80.2 fL (80.0-100.0); Mean Platelet Volume 10.9 fL (9.4-12.4); Platelet Count 243 K/uL (130-400); RDW Coefficient of Variation 21.4 % (11.5-14.5); RDW Standard Deviation 60.4 fL (36.4-46.3); Red Blood Count 5.19 M/uL (4.70-6.10); White Blood Count 10.11 K/ul (4.8-10.8)
[2023-09-23 08:56] LABS: BUN Creatinine Ratio 17.6 (10-20); Calcium 9.8 mg/dl (8.6-10.3); Creatinine Clr Calc Pharmacy 176.7 ml/min; Est GFR (African American) 115.3 ml/min; Est GFR (Non-African American) 99.5 ml/min; Magnesium 1.5 mg/dl (1.7-2.4); Phosphorus 2.3 mg/dl (2.5-4.9); Potassium 4.3 mmol/L (3.5-5.1)
[2023-09-23 08:59] LABS: INR 1.4 (0.9-1.1); Prothrombin Time 14.8 Seconds (9.0-12.0)
[2023-09-23] MEDS: ATORVASTATIN 40 MG TAB PO SCH (09:29)
[2023-09-23] MEDS: ASPIRIN 81 MG ECTAB PO SCH (09:29)
[2023-09-23] MEDS: FLUTICASONE/VILANTEROL 100/25MCG 14 PUFFS/INHALER INH SCH (09:30)
[2023-09-23] MEDS: FERROUS SULFATE 325 MG TAB PO SCH (09:30)
[2023-09-23] MEDS: FLUTICASONE PROPIONATE NA SPR 16 GM BTL SCH (09:30)
[2023-09-23] MEDS: FOLIC ACID 1 MG TAB PO SCH (09:30)
[2023-09-23] MEDS: FAMOTIDINE 20 MG TAB PO SCH (09:30)
[2023-09-23] MEDS: FINASTERIDE 5 MG TAB PO SCH (09:30)
[2023-09-23] MEDS: DULoxetine HCL 60 MG CAP PO SCH (09:30)
[2023-09-23] MEDS: MAGNESIUM OXIDE 400 MG TAB PO SCH (09:31)
[2023-09-23] MEDS: GABAPENTIN 800 MG TAB PO SCH ×3 (09:31→21:51)
[2023-09-23] MEDS: METOPROLOL SUCC 25MG EXT REL TAB PO SCH ×2 (09:31→21:51)
[2023-09-23] MEDS: ISOSORBIDE DINITRATE 10 MG TAB PO SCH (09:31)
[2023-09-23] MEDS: NICOTINE 14 MG/24 HR PATCH TD SCH (09:31)
[2023-09-23] MEDS: TAMSULOSIN HCL 0.4 MG CAP PO SCH (09:32)
[2023-09-23] MEDS: POTASSIUM CHLORIDE CRTAB 20 MEQ TABCR PO SCH ×4 (09:32→21:52)
[2023-09-23] MEDS: buprenorphine HCL 8 MG SUBL SL SCH ×2 (09:41→22:03)
[2023-09-23] MEDS: CYCLOBENZAPRINE HCL 10 MG TAB PO PRN ×2 (09:41→22:03)
[2023-09-23] MEDS: INSULIN ASPART PER UNIT CHARGE SC SCH ×4 (09:41→21:38)
[2023-09-23] MEDS: POLYETHYLENE (MIRALAX) 17 GM PACK PO PRN ×2 (10:40→23:48)
--- NOTE | 2023-09-23 14:31 | Hospitalist Progress Note ---
Date of Service September 23, 2023 Assessment & Plan (1) Acute UTI (urinary tract infection): (2) Acute renal failure (ARF): (3) Elevated INR: (4) AMS (altered mental status): Plan Mr. Milner is a 53 year old gentleman with a past medical history significant for chronic diastolic heart failure, CAD/STEMI, prior subdural hematoma/subarachnoid hemorrhage, hypertension, hyperlipidemia, COPD, recurrent PE on Coumadin, DM 2,recurrent UTIs secondary to BPH/chronic urinary retention indwelling Lloyd catheter, chronic anemia, chronic pain on buprenorphine, hx MRSA/VRE who presented on 09/19 with AMS and decreased UOP. Patient was admitted for evaluation and management of MAHAMED in setting of CAUTI. Patient is readmitted multiple times over the course of the last year. When discussing barriers to health care as an outpatient, transportation and patient's habitus are limiting factors, as well as patient's understanding of utilization of health care resources and access to community services. #CAUTI *POA #Chronic urinary retention indwelling Lloyd catheter Blood culture negative to date Urine culture--mixed isabel Normal lactic acid Empirically started on Levaquin for 5 day course, d/c aztreonam Catheter exchanged while in ED 09/19 Urology signed off -Patient failed previous void trial secondary to habitus -Encouraged patient to follow up with urology in 3-4 weeks for exchange prior to infection setting in #Acute metabolic encephalopathy secondary to above *resolved Reported history of falls --CT head:No evidence of acute intracranial pathology. --CXR:Cardiomegaly with no acute cardiopulmonary abnormality identified. Fall precautions PT OT as able Mental status back to baseline #MAHAMED *resolved Cr 4.82>4.2>2.5 >1.09 Hold home diuretics Avoid nephrotoxic agents as able Monitor renal function Discontinue IV fluids Resume home diuretics tomorrow #Hypokalemia Replete electrolytes as needed #Fecal retention -KUB:Gaseous distention of the stomach with nonobstructive bowel gas pattern. Moderate to extensive colonic fecal retention. Continue bowel regimen Encouraged to ambulate as able #Recurrent PE on coumadin Supratherapeutic INR Received Vit K 5mg Monitor INR INR at 1.4, 5mg tonight #COPD Ongoing tobacco use disorder Currently no signs of exacerbation Continue home inhalers #Chronic pain syndrome On Suboxone #Chronic diastolic CHF Monitor volume status Resume diuretics as able #Hyperlipidemia on statin #BPH Continue Proscar, Flomax #Morbid obesity BMI 55 DVT Px: Coumadin CODE STATUS Full Code Admission and Anticipated Discharge Date Admission Date: September 19, 2023 Subjective SANGEETHAEO Reports feeling alright overall. Denies any acute concerns. Notes that he feels a bit helpless getting anywhere for his appointments because of his size and just "doesnt know what to do" Physical Exam Constitutional: WD/WN, vitals as above Respiratory: normal respiratory effort, lungs clear to auscultation Cardiovascular: RRR, no murmur, no edema Gastrointestinal (Abdomen): normal bowel sounds, soft, nontender, no hepatosplenomegaly Skin: venous stasis changes on BLE Results & Data Results & Data Vital Signs (Past 12 Hours) Vital Signs Temp Pulse Pulse Resp BP BP Pulse Ox 09/23/23 11:34 36.4 C L 74 19 176/72 H 97 09/23/23 10:58 68 09/23/23 08:00 09/23/23 07:31 36.7 C 69 18 148/77 H 93 09/23/23 07:29 73 18 92 09/23/23 03:31 36.5 C 75 19 150/71 H 99 O2 Del Method O2 Flow Rate 09/23/23 11:34 Room Air 09/23/23 10:58 09/23/23 08:00 Nasal Cannula 4 09/23/23 07:31 Room Air 09/23/23 07:29 Room Air 09/23/23 03:31 Nasal Cannula 4 (2) Acute renal failure (ARF) Acute renal failure type: unspecified Qualified Code(s): N17.9 - Acute kidney failure, unspecified (4) AMS (altered mental status) Altered mental status type: unspecified Qualified Code(s): R41.82 - Altered mental status, unspecified
[2023-09-23] MEDS: buprenorphine HCL 2 MG SUBL SL SCH (14:40)
[2023-09-23] MEDS ORDERED: ENOXAPARIN 1 MG/KG SC SCH (14:45)
[2023-09-23] MEDS ORDERED: WARFARIN SOD 5 MG TAB PO SCH (16:00)
[2023-09-23] MEDS: ENOXAPARIN 150 MG/ML SYR SQ SCH (16:31)
[2023-09-23] MEDS: LANTUS PER UNIT CHARGE SC SCH (21:39)
[2023-09-23] MEDS: levoFLOXacin 750 MG TAB PO SCH (21:51)
[2023-09-24] MEDS: ENOXAPARIN 150 MG/ML SYR SQ SCH ×2 (04:36→17:00)
[2023-09-24] MEDS: PANTOprazole 40 MG TAB PO SCH (04:37)
[2023-09-24] MEDS: MICONAZOLE NITRATE POWDER 85 GM EXT SCH ×3 (04:37→17:06)
[2023-09-24] MEDS: BUDESONIDE 0.5 MG/2 ML VIAL (PULMICORT) INH SCH ×2 (06:07→20:07)
[2023-09-24 06:49] LABS: Hematocrit (blood only) 38.6 % (42.0-52.0); Hemoglobin 12.2 g/dl (14.0-18.0); Mean Corpuscular Hemoglobin 25.2 pg (25.0-34.0); Mean Corpuscular Hgb Conc 31.6 g/dL (32.0-36.0); Mean Corpuscular Volume 79.6 fL (80.0-100.0); Mean Platelet Volume 11.1 fL (9.4-12.4); Platelet Count 227 K/uL (130-400); RDW Coefficient of Variation 21.8 % (11.5-14.5); RDW Standard Deviation 61.6 fL (36.4-46.3); Red Blood Count 4.85 M/uL (4.70-6.10); White Blood Count 10.54 K/ul (4.8-10.8)
[2023-09-24 07:28] LABS: Anion Gap 5 (3-11); BUN Creatinine Ratio 16.5 (10-20); Blood Urea Nitrogen 14 mg/dl (6-23); Calcium 9.6 mg/dl (8.6-10.3); Carbon Dioxide 28 mmol/L (21-32); Chloride 102 mmol/L (98-107); Creatinine Clr Calc Pharmacy 176.4 ml/min; Est GFR (African American) 115.3 ml/min; Est GFR (Non-African American) 99.5 ml/min; Glucose 186 mg/dl (70-99(Fasting)); Magnesium 1.6 mg/dl (1.7-2.4); Sodium 135 mmol/L (136-145)
[2023-09-24] MEDS ORDERED: ACETAMINOPHEN 1,000 MG/100 ML VIAL IV STA ×2 (07:58→21:32)
[2023-09-24] MEDS: FERROUS SULFATE 325 MG TAB PO SCH (08:41)
[2023-09-24] MEDS: GABAPENTIN 800 MG TAB PO SCH ×3 (08:41→20:37)
[2023-09-24] MEDS: ASPIRIN 81 MG ECTAB PO SCH (08:41)
[2023-09-24] MEDS: FAMOTIDINE 20 MG TAB PO SCH (08:41)
[2023-09-24] MEDS: FLUTICASONE/VILANTEROL 100/25MCG 14 PUFFS/INHALER INH SCH (08:41)
[2023-09-24] MEDS: METOPROLOL SUCC 25MG EXT REL TAB PO SCH ×2 (08:41→20:37)
[2023-09-24] MEDS: FOLIC ACID 1 MG TAB PO SCH (08:41)
[2023-09-24] MEDS: DULoxetine HCL 60 MG CAP PO SCH (08:41)
[2023-09-24] MEDS: FINASTERIDE 5 MG TAB PO SCH (08:41)
[2023-09-24] MEDS: ATORVASTATIN 40 MG TAB PO SCH (08:41)
[2023-09-24] MEDS: MAGNESIUM OXIDE 400 MG TAB PO SCH (08:42)
[2023-09-24] MEDS: ISOSORBIDE DINITRATE 10 MG TAB PO SCH (08:42)
[2023-09-24] MEDS: FLUTICASONE PROPIONATE NA SPR 16 GM BTL SCH (08:42)
[2023-09-24] MEDS: NICOTINE 14 MG/24 HR PATCH TD SCH ×2 (08:43→11:53)
[2023-09-24] MEDS: TAMSULOSIN HCL 0.4 MG CAP PO SCH (08:44)
[2023-09-24] MEDS: buprenorphine HCL 8 MG SUBL SL SCH ×2 (08:53→20:37)
[2023-09-24] MEDS: INSULIN ASPART PER UNIT CHARGE SC SCH ×4 (08:53→20:30)
[2023-09-24] MEDS: CYCLOBENZAPRINE HCL 10 MG TAB PO PRN ×2 (08:53→23:33)
[2023-09-24 09:29] LABS: INR 1.6 (0.9-1.1); Prothrombin Time 16.8 Seconds (9.0-12.0)
[2023-09-24] MEDS: TORSEMIDE 10 MG TAB PO SCH (11:01)
[2023-09-24] MEDS: SPIRONOLACTONE 25 MG TAB PO SCH (11:02)
[2023-09-24] MEDS: buprenorphine HCL 2 MG SUBL SL SCH (14:43)
--- NOTE | 2023-09-24 17:13 | Hospitalist Progress Note ---
Date of Service September 24, 2023 Assessment & Plan (1) Acute UTI (urinary tract infection): (2) Acute renal failure (ARF): (3) Elevated INR: (4) AMS (altered mental status): Plan Mr. Milner is a 53 year old gentleman with a past medical history significant for chronic diastolic heart failure, CAD/STEMI, prior subdural hematoma/subarachnoid hemorrhage, hypertension, hyperlipidemia, COPD, recurrent PE on Coumadin, DM 2,recurrent UTIs secondary to BPH/chronic urinary retention indwelling Lloyd catheter, chronic anemia, chronic pain on buprenorphine, hx MRSA/VRE who presented on 09/19 with AMS and decreased UOP. Patient was admitted for evaluation and management of MAHAMED in setting of CAUTI. Patient is readmitted multiple times over the course of the last year. When discussing barriers to health care as an outpatient, transportation and patient's habitus are limiting factors, as well as patient's understanding of utilization of health care resources and access to community services. #CAUTI *POA *improved #Chronic urinary retention indwelling Lloyd catheter #Possible sepsis treated and resolved Blood culture negative to date Urine culture--mixed isabel Normal lactic acid Empirically started on Levaquin for 5 day course, d/c aztreonam discontinued Catheter exchanged while in ED 09/19 Urology signed off -Patient failed previous void trial secondary to habitus -Encouraged patient to follow up with urology in 3-4 weeks for exchange prior to infection setting in #Acute metabolic encephalopathy secondary to above *resolved Reported history of falls --CT head:No evidence of acute intracranial pathology. --CXR:Cardiomegaly with no acute cardiopulmonary abnormality identified. Fall precautions PT OT as able Mental status back to baseline #MAHAMED *resolved Cr 4.82>4.2>2.5 >1.09 Hold home diuretics Avoid nephrotoxic agents as able Monitor renal function Discontinue IV fluids Resume home diuretics #Hypokalemia Replete electrolytes as needed #Fecal retention -KUB:Gaseous distention of the stomach with nonobstructive bowel gas pattern. Moderate to extensive colonic fecal retention. Continue bowel regimen Encouraged to ambulate as able #Recurrent PE on coumadin Supratherapeutic INR Received Vit K 5mg Monitor INR INR at 1.4, 5mg tonight #COPD Ongoing tobacco use disorder Currently no signs of exacerbation Continue home inhalers #Chronic pain syndrome On Suboxone #Chronic diastolic CHF Monitor volume status Resume diuretics #Hyperlipidemia on statin #BPH Continue Proscar, Flomax #Morbid obesity BMI 55 DVT Px: Coumadin CODE STATUS Full Code Admission and Anticipated Discharge Date Admission Date: September 19, 2023 Subjective Spoke in depth with patient about follow up and out patient planning otherwise patient denies any other acute events, reports feeling better every day Physical Exam Constitutional: WD/WN, vitals as above Respiratory: normal respiratory effort, lungs clear to auscultation Cardiovascular: RRR, no murmur, no edema Skin: venous stasis changes and dry cracked skin Results & Data Results & Data Vital Signs (Past 12 Hours) Vital Signs Temp Pulse Pulse Resp BP Pulse Ox O2 Del Method 09/24/23 15:05 36.2 C L 75 18 112/64 96 Room Air 09/24/23 11:35 36.4 C L 70 20 148/73 H 96 Room Air 09/24/23 08:00 Room Air 09/24/23 07:35 36.5 C 64 18 128/76 95 Room Air 09/24/23 07:27 64 09/24/23 06:08 67 18 97 Nasal Cannula O2 Flow Rate 09/24/23 15:05 09/24/23 11:35 09/24/23 08:00 09/24/23 07:35 09/24/23 07:27 09/24/23 06:08 2 Laboratory Results Short CBC 09/24/23 Range/Units 06:14 WBC 10.54 (4.8-10.8) K/ul Hgb 12.2 L (14.0-18.0) g/dl Hct 38.6 L (42.0-52.0) % Plt Count 227 (130-400) K/uL BMP 09/24/23 09/24/23 09/24/23 06:14 07:53 08:43 Sodium 135 L Potassium TNP TNP 4.6 Chloride 102 Carbon Dioxide 28 BUN 14 Creatinine 0.85 Glucose 186 H Calcium 9.6 Medications Administered Home Medications Medication Instructions Recorded Confirmed Last Taken aspirin 81 mg tablet,delayed 81 mg PO QAM 11/17/18 09/19/23 07/19/23 release (Ecotrin Low Strength) nitroglycerin 0.4 mg sublingual 0.4 mg sublingual DIRECTED PRN 12/09/18 09/19/23 11/08/22 tablet (Nitrostat) CHEST PAIN nystatin 100,000 unit/gram topical 1 applic topical TID PRN Skin 12/09/18 09/19/23 01/30/20 powder Irritation polyethylene glycol 3350 17 gram 17 g PO QAM PRN Constipation 12/09/18 09/19/23 07/19/23 oral powder packet (Miralax) finasteride 5 mg tablet 5 mg PO QAM 03/03/19 09/19/23 07/19/23 cyclobenzaprine 10 mg tablet 10 mg PO BID PRN Muscle Spasm 03/10/19 09/19/23 01/27/23 metoprolol succinate 50 mg 75 mg PO BID 08/01/19 09/19/23 07/19/23 tablet,extended release 24 hr spironolactone 25 mg tablet 25 mg PO QAM 08/01/19 09/19/23 07/19/23 docusate sodium 100 mg capsule 100 mg PO BID PRN Constipation 08/11/19 09/19/23 07/19/23 atorvastatin 80 mg tablet 80 mg PO QAM 12/07/19 09/19/23 07/19/23 folic acid 1 mg tablet 1 mg PO QAM 12/07/19 09/19/23 07/19/23 sennosides 8.6 mg tablet (senna) 8.6 mg PO DAILY PRN Constipation 12/07/19 09/19/23 02/27/21 albuterol sulfate 90 mcg/actuation 2 puff inhalation Q4 PRN Dyspnea 02/17/20 09/19/23 11/12/22 aerosol inhaler omeprazole 20 mg capsule,delayed 20 mg PO DAILYBB 04/14/20 09/19/23 07/19/23 release gabapentin 800 mg tablet 800 mg PO TID 05/30/20 09/19/23 07/19/23 duloxetine 60 mg capsule,delayed 60 mg PO DAILY 07/05/20 09/19/23 07/19/23 release famotidine 20 mg tablet 20 mg PO DAILY 07/05/20 09/19/23 07/19/23 glipizide 10 mg tablet 10 mg PO BID 01/12/21 09/19/23 07/19/23 Lactobacillus acidoph-L.bulgaricus 1 tab PO TID #30 tabs 08/09/19/23 07/19/23 1 million cell chewable tablet (Lactinex) ferrous sulfate 325 mg (65 mg 325 mg PO QAM 10/24/21 09/19/23 07/19/23 iron) tablet hydroxyzine HCl 25 mg tablet 25 mg PO QID PRN Anxiety 10/24/21 09/19/23 Unknown magnesium oxide 400 mg (241.3 mg 400 mg PO DAILY 10/24/21 09/19/23 07/19/23 magnesium) tablet urea 20 % topical cream 1 applic topical BID Dry Areas on 10/24/21 09/19/23 07/19/23 (Ureacin-20) Soles and Legs ondansetron HCl 4 mg tablet 4 mg PO Q8H PRN NAUSEA/VOMITING 12/17/21 09/19/23 Unknown benzonatate 100 mg capsule 100 mg PO TID PRN cough #10 caps 01/02/22 09/19/23 11/12/22 isosorbide dinitrate 30 mg tablet 30 mg PO DAILY 02/19/22 09/19/23 07/19/23 tamsulosin 0.4 mg capsule (Flomax) 0.8 mg (2 x 0.4 mg) PO QAM #180 03/10/22 09/19/23 07/19/23 caps insulin aspart U-100 100 unit/mL 0 sliding scale dose subcut TIDM 04/07/23 09/19/23 07/19/23 (3 mL) subcutaneous pen (Novolog FlexPen U-100 Insulin aspart) potassium chloride 20 mEq 20 meq PO BID 04/07/23 09/19/23 07/19/23 tablet,extended release insulin glargine 100 unit/mL 50 unit SC HS 04/13/23 09/19/23 07/19/23 subcutaneous solution (Lantus U-100 Insulin) buprenorphine HCl 8 mg sublingual See Rx Instructions .Route .COMPLEX 05/04/23 09/19/23 07/20/23 08:00 tablet torsemide 100 mg tablet 50 mg PO DAILY 07/20/23 09/19/23 Unknown warfarin 5 mg tablet 0 mg PO DAILY 07/20/23 09/19/23 07/19/23 codeine 10 mg-guaifenesin 100 mg/5 5 ml PO TID PRN Cough 08/22/23 09/19/23 Unknown mL Syrup dextromethorphan-guaifenesin 30 1 tab PO Q12H PRN Cough 08/22/23 09/19/23 Unknown mg-600 mg tablet extended [id number] hr (Mucinex DM) fluticasone 250 mcg-salmeterol 50 1 inh inhalation BID 08/22/23 09/19/23 Unknown mcg/dose blistr powdr for inhalation (Advair Diskus) fluticasone propionate 93 2 spray intranasal DAILY 08/22/23 09/19/23 Unknown mcg/actuation breath activated aerosol ipratropium 0.5 mg-albuterol 3 mg 3 ml inhalation TID 08/22/23 09/19/23 Unknown (2.5 mg base)/3 mL nebulization soln metolazone 2.5 mg tablet 2.5 mg PO [id number] 08/22/23 09/19/23 Unknown budesonide 0.5 mg/2 mL suspension 0.5 mg (2 mL) inhalation Q12H #60 08/26/23 09/19/23 Unknown for nebulization mL Active Medications Generic Name Dose Route Start Last Admin Trade Name Freq PRN Reason Stop Dose Admin Aspirin 81 mg 09/20/23 09:00 09/24/23 08:41 Aspirin 81 Mg Ectab PO 10/20/23 08:59 81 mg QAM EMPERATRIZ Administration Atorvastatin Calcium 80 mg 09/20/23 09:00 09/24/23 08:41 Atorvastatin 40 Mg Tab PO 10/20/23 08:59 80 mg QAM EMPERATRIZ Administration Bisacodyl 10 mg 09/21/23 16:54 09/22/23 17:39 Bisacodyl 10 Mg Supp AK 10/21/23 16:53 10 mg DAILY PRN Administration Constipation Budesonide 0.5 mg 09/20/23 07:00 09/24/23 06:07 Budesonide 0.5 Mg/2 Ml Vial (Pulmicort) INH 10/20/23 06:59 0.5 mg Q12R EMPERATRIZ Administration Buprenorphine HCl 8 mg 09/20/23 09:00 09/24/23 08:53 Buprenorphine Hcl 8 Mg Subl SL 10/20/23 08:59 8 mg BID EMPERATRIZ Administration Buprenorphine HCl 4 mg 09/20/23 14:00 09/24/23 14:43 Buprenorphine Hcl 2 Mg Subl SL 10/20/23 13:59 4 mg DAILY@1400 EMPERATRIZ Administration Cyclobenzaprine HCl 10 mg 09/20/23 01:02 09/24/23 08:53 Cyclobenzaprine Hcl 10 Mg Tab PO 10/20/23 01:01 10 mg BID PRN Administration Muscle Spasm Docusate Sodium 100 mg 09/20/23 01:02 09/22/23 20:28 Docusate Sodium 100 Mg Cap PO 10/20/23 01:01 100 mg BID PRN Administration Constipation Duloxetine HCl 60 mg 09/20/23 09:00 09/24/23 08:41 Duloxetine Hcl 60 Mg Cap PO 10/20/23 08:59 60 mg DAILY EMPERATRIZ Administration Enoxaparin Sodium 150 mg 09/23/23 16:00 09/24/23 17:00 Enoxaparin 150 Mg/Ml Syr SQ 10/23/23 15:59 150 mg Q12H EMPERATRIZ Administration Famotidine 20 mg 09/20/23 09:00 09/24/23 08:41 Famotidine 20 Mg Tab PO 10/20/23 08:59 20 mg DAILY EMPERATRIZ Administration Ferrous Sulfate 325 mg 09/20/23 09:00 09/24/23 08:41 Ferrous Sulfate 325 Mg Tab PO 10/20/23 08:59 325 mg QAM EMPERATRIZ Administration Finasteride 5 mg 09/20/23 09:00 09/24/23 08:41 Finasteride 5 Mg Tab PO 10/20/23 08:59 5 mg QAM EMPERATRIZ Administration Fluticasone Propionate 2 sprays 09/20/23 09:00 09/24/23 08:42 Fluticasone Propionate Na Spr 16 Gm Btl NA 10/20/23 08:59 2 sprays DAILY EMPERATRIZ Administration Fluticasone/Vilanterol 1 puffs 09/20/23 09:00 09/24/23 08:41 Fluticasone/Vilanterol 100/25mcg 14 Puffs/Inhaler INH 10/20/23 08:59 1 puffs DAILY EMPERATRIZ Administration Folic Acid 1 mg 09/20/23 09:00 09/24/23 08:41 Folic Acid 1 Mg Tab PO 10/20/23 08:59 1 mg QAM EMPERATRIZ Administration Gabapentin 800 mg 09/20/23 09:00 09/24/23 14:43 Gabapentin 800 Mg Tab PO 10/20/23 08:59 800 mg TID EMPERATRIZ Administration Promethazine HCl 12.5 mg/ 50.5 mls @ 202 mls/hr 09/20/23 19:55 09/22/23 09:26 Sodium Chloride IV 10/20/23 19:54 Infused Q6H PRN Infusion Nausea And Vomiting Insulin Aspart 0 units 09/20/23 11:30 09/24/23 17:10 Insulin Aspart Per Unit Charge [place] 10/20/23 11:29 11 units ACHS COUNTS INCLUDE 234 BEDS AT THE [facility] Administration Insulin Glargine 50 units 09/20/23 21:00 09/23/23 21:39 Lantus Per Unit Charge FL 10/20/23 20:59 50 units HS COUNTS INCLUDE 234 BEDS AT THE [facility] Administration Isosorbide Dinitrate 30 mg 09/20/23 09:00 09/24/23 08:42 Isosorbide Dinitrate 10 Mg Tab PO 10/20/23 08:59 30 mg DAILY EMPERATRIZ Administration Magnesium Oxide 400 mg 09/20/23 09:00 09/24/23 08:42 Magnesium Oxide 400 Mg Tab PO 10/20/23 08:59 400 mg DAILY COUNTS INCLUDE 234 BEDS AT THE [facility] Administration Metoprolol Succinate 75 mg 09/20/23 09:00 09/24/23 08:41 Metoprolol Succ 25mg Ext Rel Tab PO 10/20/23 08:59 75 mg BID COUNTS INCLUDE 234 BEDS AT THE [facility] Administration Miconazole Nitrate 1 appln 09/20/23 02:45 09/24/23 17:06 Miconazole Nitrate Powder 85 Gm EXT 10/20/23 02:44 Not Given Q6H COUNTS INCLUDE 234 BEDS AT THE [facility] Miscellaneous 1 each 09/20/23 08:00 09/24/23 17:05 Order Awaiting Action: Urea [Ureacin-20] 20 % Cream N/A 10/20/23 07:59 Not Given QS COUNTS INCLUDE 234 BEDS AT [facility] Miscellaneous 1 each 09/23/23 08:59 09/24/23 08:43 Remove Nicoderm Patch N/A 10/23/23 08:58 1 each DAILY@0859 COUNTS INCLUDE 234 BEDS AT THE [facility] Administration Nicotine 14 mg 09/23/23 09:00 09/24/23 11:53 Nicotine 14 Mg/24 Hr Patch TD 10/23/23 08:59 14 mg QAM COUNTS INCLUDE 234 BEDS AT THE [facility] Administration Ondansetron HCl 4 mg 09/20/23 02:00 09/21/23 04:09 Ondansetron 4 Mg Od Tab PO 10/20/23 01:59 4 mg Q8H PRN Administration Nausea And Vomiting Ondansetron HCl 4 mg 09/21/23 12:45 09/22/23 12:13 Ondansetron Inj 2 Mg/Ml 2 Ml Vial IV 10/21/23 12:44 4 mg Q6H PRN Administration Nausea And Vomiting Pantoprazole Sodium 40 mg 09/20/23 06:30 09/24/23 04:37 Pantoprazole 40 Mg Tab PO 10/20/23 06:29 40 mg DAILYBB EMPERATRIZ Administration Polyethylene Glycol 17 gm 09/21/23 13:14 09/23/23 23:48 Polyethylene (Miralax) 17 Gm Pack PO 10/20/23 01:01 17 gm BID PRN Administration Constipation Potassium Chloride 20 meq 09/21/23 13:00 09/23/23 21:52 Potassium Chloride Crtab 20 Meq Tabcr PO 10/21/23 12:59 20 meq QID EMPERATRIZ Administration Sennosides 8.6 mg 09/20/23 01:02 09/22/23 08:33 Senna 8.6 Mg Tab PO 10/20/23 01:01 8.6 mg DAILY PRN Administration Constipation Spironolactone 25 mg 09/20/23 09:00 09/24/23 11:02 Spironolactone 25 Mg Tab PO 10/20/23 08:59 25 mg QAM EMPERATRIZ Administration Tamsulosin HCl 0.8 mg 09/20/23 09:00 09/24/23 08:44 Tamsulosin Hcl 0.4 Mg Cap PO 10/20/23 08:59 0.8 mg QAM EMPERATRIZ Administration Torsemide 50 mg 09/20/23 09:00 09/24/23 11:01 Torsemide 10 Mg Tab PO 10/20/23 08:59 50 mg DAILY EMPERATRIZ Administration (2) Acute renal failure (ARF) Acute renal failure type: unspecified Qualified Code(s): N17.9 - Acute kidney failure, unspecified (4) AMS (altered mental status) Altered mental status type: unspecified Qualified Code(s): R41.82 - Altered mental status, unspecified
[2023-09-24] MEDS: WARFARIN SOD 7.5 MG TAB PO SCH (17:49)
[2023-09-24] MEDS: LANTUS PER UNIT CHARGE SC SCH (20:31)
[2023-09-25] MEDS: MICONAZOLE NITRATE POWDER 85 GM EXT SCH ×5 (00:12→23:13)
[2023-09-25] MEDS: PANTOprazole 40 MG TAB PO SCH (05:33)
[2023-09-25] MEDS: ENOXAPARIN 150 MG/ML SYR SQ SCH ×2 (05:34→17:49)
[2023-09-25] MEDS: BUDESONIDE 0.5 MG/2 ML VIAL (PULMICORT) INH SCH ×2 (07:23→20:21)
[2023-09-25 07:32] LABS: Hematocrit (blood only) 40.8 % (42.0-52.0); Hemoglobin 12.6 g/dl (14.0-18.0); Mean Corpuscular Hemoglobin 25.3 pg (25.0-34.0); Mean Corpuscular Hgb Conc 30.9 g/dL (32.0-36.0); Mean Corpuscular Volume 81.8 fL (80.0-100.0); Mean Platelet Volume 10.9 fL (9.4-12.4); Platelet Count 244 K/uL (130-400); RDW Coefficient of Variation 22.1 % (11.5-14.5); Red Blood Count 4.99 M/uL (4.70-6.10); White Blood Count 11.16 K/ul (4.8-10.8)
[2023-09-25 08:01] LABS: BUN Creatinine Ratio 15.5 (10-20); Calcium 9.5 mg/dl (8.6-10.3); Creatinine Clr Calc Pharmacy 158.8 ml/min; Est GFR (African American) 102.9 ml/min; Est GFR (Non-African American) 88.8 ml/min; Magnesium 1.3 mg/dl (1.7-2.4); Phosphorus 3.4 mg/dl (2.5-4.9)
[2023-09-25] MEDS ORDERED: LANTUS PER UNIT CHARGE SQ STA (08:03)
[2023-09-25 08:04] LABS: INR 1.7 (0.9-1.1); Prothrombin Time 18.4 Seconds (9.0-12.0)
[2023-09-25] MEDS ORDERED: ACETAMINOPHEN 1,000 MG/100 ML VIAL IV STA ×2 (09:24→21:36)
[2023-09-25] MEDS: ATORVASTATIN 40 MG TAB PO SCH (09:30)
[2023-09-25] MEDS: FERROUS SULFATE 325 MG TAB PO SCH (09:30)
[2023-09-25] MEDS: FOLIC ACID 1 MG TAB PO SCH (09:30)
[2023-09-25] MEDS: GABAPENTIN 800 MG TAB PO SCH ×3 (09:30→21:16)
[2023-09-25] MEDS: FAMOTIDINE 20 MG TAB PO SCH (09:30)
[2023-09-25] MEDS: DULoxetine HCL 60 MG CAP PO SCH (09:30)
[2023-09-25] MEDS: FINASTERIDE 5 MG TAB PO SCH (09:30)
[2023-09-25] MEDS: ASPIRIN 81 MG ECTAB PO SCH (09:30)
[2023-09-25] MEDS: FLUTICASONE PROPIONATE NA SPR 16 GM BTL SCH (09:31)
[2023-09-25] MEDS: TAMSULOSIN HCL 0.4 MG CAP PO SCH (09:31)
[2023-09-25] MEDS: MAGNESIUM OXIDE 400 MG TAB PO SCH (09:31)
[2023-09-25] MEDS: ISOSORBIDE DINITRATE 10 MG TAB PO SCH (09:31)
[2023-09-25] MEDS: FLUTICASONE/VILANTEROL 100/25MCG 14 PUFFS/INHALER INH SCH (09:31)
[2023-09-25] MEDS: METOPROLOL SUCC 25MG EXT REL TAB PO SCH ×2 (09:31→21:16)
[2023-09-25] MEDS: INSULIN ASPART PER UNIT CHARGE SC SCH ×4 (09:32→21:16)
[2023-09-25] MEDS: NICOTINE 14 MG/24 HR PATCH TD SCH (09:35)
[2023-09-25] MEDS: MAGNESIUM SULFATE / D5W 1 GM/100 ML BAG IV SCH ×4 (09:45→16:36)
[2023-09-25] MEDS: CYCLOBENZAPRINE HCL 10 MG TAB PO PRN ×2 (09:45→22:51)
[2023-09-25] MEDS: POLYETHYLENE (MIRALAX) 17 GM PACK PO PRN (09:46)
[2023-09-25] MEDS: buprenorphine HCL 8 MG SUBL SL SCH ×2 (09:55→21:11)
[2023-09-25] MEDS: TORSEMIDE 10 MG TAB PO SCH (11:09)
[2023-09-25] MEDS: SPIRONOLACTONE 25 MG TAB PO SCH (11:10)
[2023-09-25] MEDS: bisacodyL 5 MG TABEC PO SCH (12:18)
--- NOTE | 2023-09-25 12:57 | Hospitalist Progress Note ---
Date of Service September 25, 2023 Assessment & Plan (1) Acute UTI (urinary tract infection): (2) Acute renal failure (ARF): (3) Elevated INR: (4) AMS (altered mental status): Plan Mr. Milner is a 53 year old gentleman with a past medical history significant for chronic diastolic heart failure, CAD/STEMI, prior subdural hematoma/subarachnoid hemorrhage, hypertension, hyperlipidemia, COPD, recurrent PE on Coumadin, DM 2,recurrent UTIs secondary to BPH/chronic urinary retention indwelling Lloyd catheter, chronic anemia, chronic pain on buprenorphine, hx MRSA/VRE who presented on 09/19 with AMS and decreased UOP. Patient was admitted for evaluation and management of MAHAMED in setting of CAUTI. Patient is readmitted multiple times over the course of the last year. When discussing barriers to health care as an outpatient, transportation and patient's habitus are limiting factors, as well as patient's understanding of utilization of health care resources and access to community services. #CAUTI *POA *improved #Chronic urinary retention indwelling Lloyd catheter #Possible sepsis treated and resolved Blood culture negative to date Urine culture--mixed isabel Normal lactic acid Empirically started on Levaquin for 5 day course, d/c aztreonam discontinued Catheter exchanged while in ED 09/19 Urology signed off -Patient failed previous void trial secondary to habitus -Encouraged patient to follow up with urology in 3-4 weeks for exchange prior to infection setting in #Acute metabolic encephalopathy secondary to above *resolved Reported history of falls --CT head:No evidence of acute intracranial pathology. --CXR:Cardiomegaly with no acute cardiopulmonary abnormality identified. Fall precautions PT OT as able Mental status back to baseline #MAHAMED *resolved Cr 4.82>4.2>2.5 >1.09 Avoid nephrotoxic agents as able Monitor renal function Discontinue IV fluids Continue home diuretics #Hypokalemia Replete electrolytes as needed #Fecal retention -KUB:Gaseous distention of the stomach with nonobstructive bowel gas pattern. Moderate to extensive colonic fecal retention. Continue bowel regimen Encouraged to ambulate as able #Recurrent PE on coumadin Supratherapeutic INR Received Vit K 5mg Monitor INR INR at 1.7, 7.5mg tonight #COPD Ongoing tobacco use disorder Currently no signs of exacerbation Continue home inhalers #Chronic pain syndrome On Suboxone #Chronic diastolic CHF Monitor volume status Continue diuretics #Hyperlipidemia on statin #BPH Continue Proscar, Flomax #Morbid obesity BMI 60.5 DVT Px: Coumadin CODE STATUS Full Code Admission and Anticipated Discharge Date Admission Date: September 19, 2023 Subjective Patient states that he is unsure about his ride- maybe tomorrow or Wednesday He reports feeling tired but overall he is feeling ok. He denies chest pain, abdominal pain, or other concerns Reports feeling worries he hasnt had another bowel movement, but is taking miralax Physical Exam Constitutional: WD/WN, vitals as above Respiratory: normal respiratory effort, lungs clear to auscultation Cardiovascular: RRR, no murmur, no edema Results & Data Results & Data Vital Signs (Past 12 Hours) Vital Signs Temp Pulse Pulse Resp BP BP Pulse Ox 09/25/23 11:10 36.6 C 89 130/71 93 09/25/23 08:00 09/25/23 08:00 36.8 C 74 22 117/70 93 09/25/23 07:27 64 09/25/23 07:23 67 18 95 09/25/23 03:09 36.5 C 69 22 136/79 95 O2 Del Method 09/25/23 11:10 Room Air 09/25/23 08:00 Room Air 09/25/23 08:00 Room Air 09/25/23 07:27 09/25/23 07:23 Room Air 09/25/23 03:09 Room Air Laboratory Results Short CBC 09/25/23 Range/Units 06:31 WBC 11.16 H (4.8-10.8) K/ul Hgb 12.6 L (14.0-18.0) g/dl Hct 40.8 L (42.0-52.0) % Plt Count 244 (130-400) K/uL BMP 09/25/23 06:31 Sodium 137 Potassium 4.0 Chloride 98 Carbon Dioxide 33 H BUN 15 Creatinine 0.97 Glucose 219 H Calcium 9.5 Medications Administered Home Medications Medication Instructions Recorded Confirmed Last Taken aspirin 81 mg tablet,delayed 81 mg PO QAM 11/17/18 09/19/23 07/19/23 release (Ecotrin Low Strength) nitroglycerin 0.4 mg sublingual 0.4 mg sublingual DIRECTED PRN 12/09/18 09/19/23 11/08/22 tablet (Nitrostat) CHEST PAIN nystatin 100,000 unit/gram topical 1 applic topical TID PRN Skin 12/09/18 09/19/23 01/30/20 powder Irritation polyethylene glycol 3350 17 gram 17 g PO QAM PRN Constipation 12/09/18 09/19/23 07/19/23 oral powder packet (Miralax) finasteride 5 mg tablet 5 mg PO QAM 03/03/19 09/19/23 07/19/23 cyclobenzaprine 10 mg tablet 10 mg PO BID PRN Muscle Spasm 03/10/19 09/19/23 01/27/23 metoprolol succinate 50 mg 75 mg PO BID 08/01/19 09/19/23 07/19/23 tablet,extended release 24 hr spironolactone 25 mg tablet 25 mg PO QAM 08/01/19 09/19/23 07/19/23 docusate sodium 100 mg capsule 100 mg PO BID PRN Constipation 08/11/19 09/19/23 07/19/23 atorvastatin 80 mg tablet 80 mg PO QAM 12/07/19 09/19/23 07/19/23 folic acid 1 mg tablet 1 mg PO QAM 12/07/19 09/19/23 07/19/23 sennosides 8.6 mg tablet (senna) 8.6 mg PO DAILY PRN Constipation 12/07/19 09/19/23 02/27/21 albuterol sulfate 90 mcg/actuation 2 puff inhalation Q4 PRN Dyspnea 02/17/20 09/19/23 11/12/22 aerosol inhaler omeprazole 20 mg capsule,delayed 20 mg PO DAILYBB 04/14/20 09/19/23 07/19/23 release gabapentin 800 mg tablet 800 mg PO TID 05/30/20 09/19/23 07/19/23 duloxetine 60 mg capsule,delayed 60 mg PO DAILY 07/05/20 09/19/23 07/19/23 release famotidine 20 mg tablet 20 mg PO DAILY 07/05/20 09/19/23 07/19/23 glipizide 10 mg tablet 10 mg PO BID 01/12/21 09/19/23 07/19/23 Lactobacillus acidoph-L.bulgaricus 1 tab PO TID #30 tabs 05/09/21 09/19/23 07/19/23 1 million cell chewable tablet (Lactinex) ferrous sulfate 325 mg (65 mg 325 mg PO QAM 10/24/21 09/19/23 07/19/23 iron) tablet hydroxyzine HCl 25 mg tablet 25 mg PO QID PRN Anxiety 10/24/21 09/19/23 Unknown magnesium oxide 400 mg (241.3 mg 400 mg PO DAILY 10/24/21 09/19/23 07/19/23 magnesium) tablet urea 20 % topical cream 1 applic topical BID Dry Areas on 10/24/21 09/19/23 07/19/23 (Ureacin-20) Soles and Legs ondansetron HCl 4 mg tablet 4 mg PO Q8H PRN NAUSEA/VOMITING 12/17/21 09/19/23 Unknown benzonatate 100 mg capsule 100 mg PO TID PRN cough #10 caps 01/02/22 09/19/23 11/12/22 isosorbide dinitrate 30 mg tablet 30 mg PO DAILY 02/19/22 09/19/23 07/19/23 tamsulosin 0.4 mg capsule (Flomax) 0.8 mg (2 x 0.4 mg) PO QAM #180 03/10/22 09/19/23 07/19/23 caps insulin aspart U-100 100 unit/mL 0 sliding scale dose subcut TIDM 04/07/23 09/19/23 07/19/23 (3 mL) subcutaneous pen (Novolog FlexPen U-100 Insulin aspart) potassium chloride 20 mEq 20 meq PO BID 04/07/23 09/19/23 07/19/23 tablet,extended release insulin glargine 100 unit/mL 50 unit SC HS 04/13/23 09/19/23 07/19/23 subcutaneous solution (Lantus U-100 Insulin) buprenorphine HCl 8 mg sublingual See Rx Instructions .Route .COMPLEX 05/04/23 09/19/23 07/20/23 08:00 tablet torsemide 100 mg tablet 50 mg PO DAILY 07/20/23 09/19/23 Unknown warfarin 5 mg tablet 0 mg PO DAILY 07/20/23 09/19/23 07/19/23 codeine 10 mg-guaifenesin 100 mg/5 5 ml PO TID PRN Cough 08/22/23 09/19/23 Unknown mL Syrup dextromethorphan-guaifenesin 30 1 tab PO Q12H PRN Cough 08/22/23 09/19/23 Unknown mg-600 mg tablet extended hr (Mucinex DM) fluticasone 250 mcg-salmeterol 50 1 inh inhalation BID 08/22/23 09/19/23 Unknown mcg/dose blistr powdr for inhalation (Advair Diskus) fluticasone propionate 93 2 spray intranasal DAILY 08/22/23 09/19/23 Unknown mcg/actuation breath activated aerosol ipratropium 0.5 mg-albuterol 3 mg 3 ml inhalation TID 08/22/23 09/19/23 Unknown (2.5 mg base)/3 mL nebulization soln metolazone 2.5 mg tablet 2.5 mg PO 3XWK 08/22/23 09/19/23 Unknown budesonide 0.5 mg/2 mL suspension 0.5 mg (2 mL) inhalation Q12H #60 08/26/23 1 Unknown for nebulization mL Active Medications Generic Name Dose Route Start Last Admin Trade Name Freq PRN Reason Stop Dose Admin Aspirin 81 mg 09/20/23 09:00 09/25/23 09:30 Aspirin 81 Mg Ectab PO 10/20/23 08:59 81 mg QAM EMPERATRIZ Administration Atorvastatin Calcium 80 mg 09/20/23 09:00 09/25/23 09:30 Atorvastatin 40 Mg Tab PO 10/20/23 08:59 80 mg QAM EMPERATRIZ Administration Bisacodyl 10 mg 09/21/23 16:54 09/22/23 17:39 Bisacodyl 10 Mg Supp [place] 10/21/23 16:53 10 mg DAILY PRN Administration Constipation Bisacodyl 5 mg 09/25/23 11:30 09/25/23 12:18 Bisacodyl 5 Mg Tabec PO 10/25/23 11:29 5 mg DAILY EMPERATRIZ Administration Budesonide 0.5 mg 09/20/23 07:00 09/25/23 07:23 Budesonide 0.5 Mg/2 Ml Vial (Pulmicort) INH 10/20/23 06:59 0.5 mg Q12R EMPERATRIZ Administration Buprenorphine HCl 8 mg 09/20/23 09:00 09/25/23 09:55 Buprenorphine Hcl 8 Mg Subl SL 10/20/23 08:59 8 mg BID EMPERATRIZ Administration Buprenorphine HCl 4 mg 09/20/23 14:00 09/24/23 14:43 Buprenorphine Hcl 2 Mg Subl SL 10/20/23 13:59 4 mg DAILY@1400 EMPERATRIZ Administration Cyclobenzaprine HCl 10 mg 09/20/23 01:02 09/25/23 09:45 Cyclobenzaprine Hcl 10 Mg Tab PO 10/20/23 01:01 10 mg BID PRN Administration Muscle Spasm Docusate Sodium 100 mg 09/20/23 01:02 09/22/23 20:28 Docusate Sodium 100 Mg Cap PO 10/20/23 01:01 100 mg BID PRN Administration Constipation Duloxetine HCl 60 mg 09/20/23 09:00 09/25/23 09:30 Duloxetine Hcl 60 Mg Cap PO 10/20/23 08:59 60 mg DAILY EMPERATRIZ Administration Enoxaparin Sodium 150 mg 09/23/23 16:00 09/25/23 05:34 Enoxaparin 150 Mg/Ml Syr SQ 10/23/23 15:59 150 mg Q12H EMPERATRIZ Administration Famotidine 20 mg 09/20/23 09:00 09/25/23 09:30 Famotidine 20 Mg Tab PO 10/20/23 08:59 20 mg DAILY EMPERATRIZ Administration Ferrous Sulfate 325 mg 09/20/23 09:00 09/25/23 09:30 Ferrous Sulfate 325 Mg Tab PO 10/20/23 08:59 325 mg QAM EMPERATRIZ Administration Finasteride 5 mg 09/20/23 09:00 09/25/23 09:30 Finasteride 5 Mg Tab PO 10/20/23 08:59 5 mg QAM EMPERATRIZ Administration Fluticasone Propionate 2 sprays 09/20/23 09:00 09/25/23 09:31 Fluticasone Propionate Na Spr 16 Gm Btl NA 10/20/23 08:59 2 sprays DAILY EMPERATRIZ Administration Fluticasone/Vilanterol 1 puffs 09/20/23 09:00 09/25/23 09:31 Fluticasone/Vilanterol 100/25mcg 14 Puffs/Inhaler INH 10/20/23 08:59 1 puffs DAILY EMPERATRIZ Administration Folic Acid 1 mg 09/20/23 09:00 09/25/23 09:30 Folic Acid 1 Mg Tab PO 10/20/23 08:59 1 mg QAM EMPERATRIZ Administration Gabapentin 800 mg 09/20/23 09:00 09/25/23 09:30 Gabapentin 800 Mg Tab PO 10/20/23 08:59 800 mg TID EMPERATRIZ Administration Promethazine HCl 12.5 mg/ 50.5 mls @ 202 mls/hr 09/20/23 19:55 09/22/23 09:26 Sodium Chloride IV 10/20/23 19:54 Infused Q6H PRN Infusion Nausea And Vomiting Magnesium Sulfate/Dextrose 1 gm in 100 mls @ 50 mls/hr 09/25/23 08:15 09/25/23 12:13 Magnesium Sulfate / D5w IV 09/25/23 16:14 50 mls/hr Q2H EMPERATRIZ Administration Insulin Aspart 0 units 09/20/23 11:30 09/25/23 12:18 Insulin Aspart Per Unit Charge [place] 10/20/23 11:29 8 units ACHS [facility] Administration Insulin Glargine 50 units 09/20/23 21:00 09/24/23 20:31 Lantus Per Unit Charge [place] 10/20/23 20:59 50 units HS [facility] Administration Isosorbide Dinitrate 30 mg 09/20/23 09:00 09/25/23 09:31 Isosorbide Dinitrate 10 Mg Tab PO 10/20/23 08:59 30 mg DAILY EMPERATRIZ Administration Magnesium Oxide 400 mg 09/20/23 09:00 09/25/23 09:31 Magnesium Oxide 400 Mg Tab PO 10/20/23 08:59 400 mg DAILY EMPERATRIZ Administration Metoprolol Succinate 75 mg 09/20/23 09:00 09/25/23 09:31 Metoprolol Succ 25mg Ext Rel Tab PO 10/20/23 08:59 75 mg BID [facility] Administration Miconazole Nitrate 1 appln 09/20/23 02:45 09/25/23 12:14 Miconazole Nitrate Powder 85 Gm EXT 10/20/23 02:44 1 appln Q6H [facility] Administration Miscellaneous 1 each 09/20/23 08:00 09/25/23 09:34 Order Awaiting Action: Urea [Ureacin-20] 20 % Cream N/A 10/20/23 07:59 Not Given QS EMPERATRIZ Miscellaneous 1 each 09/23/23 08:59 09/25/23 09:32 Remove Nicoderm Patch N/A 10/23/23 08:58 1 each DAILY@0859 EMPERATRIZ Administration Nicotine 14 mg 09/23/23 09:00 09/25/23 09:35 Nicotine 14 Mg/24 Hr Patch TD 10/23/23 08:59 14 mg QAM EMPERATRIZ Administration Ondansetron HCl 4 mg 09/20/23 02:00 09/21/23 04:09 Ondansetron 4 Mg Od Tab PO 10/20/23 01:59 4 mg Q8H PRN Administration Nausea And Vomiting Ondansetron HCl 4 mg 09/21/23 12:45 09/22/23 12:13 Ondansetron Inj 2 Mg/Ml 2 Ml Vial IV 10/21/23 12:44 4 mg Q6H PRN Administration Nausea And Vomiting Pantoprazole Sodium 40 mg 09/20/23 06:30 09/25/23 05:33 Pantoprazole 40 Mg Tab PO 10/20/23 06:29 40 mg DAILYBB EMPERATRIZ Administration Potassium Chloride 20 meq 09/21/23 13:00 09/23/23 21:52 Potassium Chloride Crtab 20 Meq Tabcr PO 10/21/23 12:59 20 meq QID EMPERATRIZ Administration Spironolactone 25 mg 09/20/23 09:00 09/25/23 11:10 Spironolactone 25 Mg Tab PO 10/20/23 08:59 25 mg QAM EMPERATRIZ Administration Tamsulosin HCl 0.8 mg 09/20/23 09:00 09/25/23 09:31 Tamsulosin Hcl 0.4 Mg Cap PO 10/20/23 08:59 0.8 mg QAM EMPERATRIZ Administration Torsemide 50 mg 09/20/23 09:00 09/25/23 11:09 Torsemide 10 Mg Tab PO 10/20/23 08:59 50 mg DAILY EMPERATRIZ Administration Warfarin Sodium 7.5 mg 09/24/23 16:00 09/24/23 17:49 Warfarin Sod 7.5 Mg Tab PO 10/24/23 15:59 7.5 mg DAILY@1600 EMPERATRIZ Administration (2) Acute renal failure (ARF) Acute renal failure type: unspecified Qualified Code(s): N17.9 - Acute kidney failure, unspecified (4) AMS (altered mental status) Altered mental status type: unspecified Qualified Code(s): R41.82 - Altered mental status, unspecified
[2023-09-25] MEDS: POLYETHYLENE (MIRALAX) 17 GM PACK PO SCH ×3 (14:32→23:58)
[2023-09-25] MEDS: buprenorphine HCL 2 MG SUBL SL SCH (14:33)
[2023-09-25] MEDS: WARFARIN SOD 7.5 MG TAB PO SCH (16:38)
[2023-09-25] MEDS: SENNA 8.6 MG TAB PO SCH (21:16)
[2023-09-25] MEDS: LANTUS PER UNIT CHARGE SC SCH (21:17)
[2023-09-26] MEDS ORDERED: KETOROLAC TROMETHAMINE 15 MG/ML VIAL IV ONE (03:34)
[2023-09-26] MEDS: ENOXAPARIN 150 MG/ML SYR SQ SCH (03:55)
[2023-09-26] MEDS: MICONAZOLE NITRATE POWDER 85 GM EXT SCH ×4 (05:43→23:46)
[2023-09-26] MEDS: PANTOprazole 40 MG TAB PO SCH (05:43)
[2023-09-26 06:46] LABS: Hematocrit (blood only) 37.3 % (42.0-52.0); Mean Corpuscular Hemoglobin 25.5 pg (25.0-34.0); Mean Corpuscular Hgb Conc 32.2 g/dL (32.0-36.0); Mean Corpuscular Volume 79.4 fL (80.0-100.0); Mean Platelet Volume 10.9 fL (9.4-12.4); Platelet Count 250 K/uL (130-400); RDW Coefficient of Variation 21.8 % (11.5-14.5); RDW Standard Deviation 61.8 fL (36.4-46.3); White Blood Count 11.68 K/ul (4.8-10.8)
[2023-09-26 06:57] LABS: Creatinine Clr Calc Pharmacy 169.9 ml/min; Est GFR (African American) 111.1 ml/min; Est GFR (Non-African American) 95.9 ml/min; Magnesium 1.7 mg/dl (1.7-2.4); Potassium 3.5 mmol/L (3.5-5.1)
[2023-09-26] MEDS: BUDESONIDE 0.5 MG/2 ML VIAL (PULMICORT) INH SCH ×2 (07:33→20:04)
[2023-09-26 07:36] LABS: INR 2.6 (0.9-1.1); Prothrombin Time 26.9 Seconds (9.0-12.0)
[2023-09-26] MEDS: POLYETHYLENE (MIRALAX) 17 GM PACK PO SCH ×3 (08:30→20:06)
[2023-09-26] MEDS: bisacodyL 5 MG TABEC PO SCH (08:31)
[2023-09-26] MEDS: ASPIRIN 81 MG ECTAB PO SCH (08:31)
[2023-09-26] MEDS: NICOTINE 14 MG/24 HR PATCH TD SCH (08:32)
[2023-09-26] MEDS: ATORVASTATIN 40 MG TAB PO SCH (08:32)
[2023-09-26] MEDS: FAMOTIDINE 20 MG TAB PO SCH (08:32)
[2023-09-26] MEDS: DULoxetine HCL 60 MG CAP PO SCH (08:33)
[2023-09-26] MEDS: ISOSORBIDE DINITRATE 10 MG TAB PO SCH (08:33)
[2023-09-26] MEDS: TORSEMIDE 10 MG TAB PO SCH (08:33)
[2023-09-26] MEDS: MAGNESIUM OXIDE 400 MG TAB PO SCH (08:34)
[2023-09-26] MEDS: METOPROLOL SUCC 25MG EXT REL TAB PO SCH ×2 (08:34→20:35)
[2023-09-26] MEDS: SENNA 8.6 MG TAB PO SCH ×2 (08:34→20:34)
[2023-09-26] MEDS: FERROUS SULFATE 325 MG TAB PO SCH (08:34)
[2023-09-26] MEDS: TAMSULOSIN HCL 0.4 MG CAP PO SCH (08:34)
[2023-09-26] MEDS: FOLIC ACID 1 MG TAB PO SCH (08:34)
[2023-09-26] MEDS: SPIRONOLACTONE 25 MG TAB PO SCH (08:35)
[2023-09-26] MEDS: FLUTICASONE/VILANTEROL 100/25MCG 14 PUFFS/INHALER INH SCH (08:35)
[2023-09-26] MEDS: FINASTERIDE 5 MG TAB PO SCH (08:35)
[2023-09-26] MEDS: FLUTICASONE PROPIONATE NA SPR 16 GM BTL SCH (08:43)
[2023-09-26] MEDS: POTASSIUM CHLORIDE CRTAB 20 MEQ TABCR PO SCH ×4 (08:44→20:33)
[2023-09-26] MEDS: GABAPENTIN 800 MG TAB PO SCH ×3 (08:45→20:34)
[2023-09-26] MEDS: INSULIN ASPART PER UNIT CHARGE SC SCH ×4 (08:46→20:32)
[2023-09-26] MEDS: buprenorphine HCL 8 MG SUBL SL SCH ×2 (08:50→20:32)
[2023-09-26] MEDS ORDERED: ACETAMINOPHEN 1,000 MG/100 ML VIAL IV STA ×2 (09:15→20:41)
[2023-09-26] MEDS: ERGOCALCIFEROL 50,000 UNITS 1250 MCG CAP PO SCH (09:35)
[2023-09-26] MEDS: CYCLOBENZAPRINE HCL 10 MG TAB PO PRN ×2 (09:41→21:07)
[2023-09-26] MEDS: buprenorphine HCL 2 MG SUBL SL SCH (13:18)
[2023-09-26] MEDS ORDERED: WARFARIN SOD 5 MG TAB PO SCH (16:00)
[2023-09-26] MEDS ORDERED: bisacodyL 10 MG SUPP PR STA (16:30)
[2023-09-26] MEDS ORDERED: SOD PHOSPHATE/SOD BIPHOSPHATE ENEMA 132 ML BTL PR STA (16:30)
--- NOTE | 2023-09-26 16:35 | Hospitalist Progress Note ---
Date of Service September 26, 2023 Assessment & Plan (1) Acute UTI (urinary tract infection): (2) Acute renal failure (ARF): (3) Elevated INR: (4) AMS (altered mental status): Plan Mr. Milner is a 53 year old gentleman with a past medical history significant for chronic diastolic heart failure, CAD/STEMI, prior subdural hematoma/subarachnoid hemorrhage, hypertension, hyperlipidemia, COPD, recurrent PE on Coumadin, DM 2,recurrent UTIs secondary to BPH/chronic urinary retention indwelling Lloyd catheter, chronic anemia, chronic pain on buprenorphine, hx MRSA/VRE who presented on 09/19 with AMS and decreased UOP. Patient was admitted for evaluation and management of MAHAMED in setting of CAUTI. Patient is readmitted multiple times over the course of the last year. When discussing barriers to health care as an outpatient, transportation and patient's habitus are limiting factors, as well as patient's understanding of utilization of health care resources and access to community services. #CAUTI *POA *improved #Chronic urinary retention indwelling Lloyd catheter #Possible sepsis treated and resolved Blood culture negative to date Urine culture--mixed isabel Normal lactic acid Completed Levaquin for 5 day course, d/c aztreonam discontinued Catheter exchanged while in ED 09/19 Urology signed off -Patient failed previous void trial secondary to habitus -Encouraged patient to follow up with urology in 3-4 weeks for exchange prior to infection setting in #Acute metabolic encephalopathy secondary to above *resolved Reported history of falls --CT head:No evidence of acute intracranial pathology. --CXR:Cardiomegaly with no acute cardiopulmonary abnormality identified. Fall precautions PT OT as able Mental status back to baseline #MAHAMED *resolved Cr 4.82>4.2>2.5 >1.09 Avoid nephrotoxic agents as able Monitor renal function Discontinue IV fluids Continue home diuretics #Vitamin D Deficiency -D level 9 Weekly 50,000U D2 started #Hypokalemia Replete electrolytes as needed #Fecal retention -KUB:Gaseous distention of the stomach with nonobstructive bowel gas pattern. Moderate to extensive colonic fecal retention. Continue bowel regimen Encouraged to ambulate as able #Recurrent PE on coumadin Supratherapeutic INR Received Vit K 5mg Monitor INR INR at 2.6, 5mg tonight #COPD Ongoing tobacco use disorder Currently no signs of exacerbation Continue home inhalers #Chronic pain syndrome On Suboxone #Chronic diastolic CHF Monitor volume status Continue diuretics #Hyperlipidemia on statin #BPH Continue Proscar, Flomax #Morbid obesity BMI 60.5 DVT Px: Coumadin CODE STATUS Full Code Admission and Anticipated Discharge Date Admission Date: September 19, 2023 Subjective Patient endorses no bowel movement for 3 days and really wants to try and go. Regimen has not been successful to date, agreeable to suppository +/- enema States that his ride "just couldn't make it" States only concern is his BM. Physical Exam Constitutional: WD/WN, vitals as above Respiratory: normal respiratory effort, lungs clear to auscultation Cardiovascular: RRR, no murmur, no edema Gastrointestinal (Abdomen): normal bowel sounds, soft, nontender, no hepatosplenomegaly Results & Data Results & Data Vital Signs (Past 12 Hours) Vital Signs Temp Pulse Pulse Resp BP Pulse Ox O2 Del Method 09/26/23 15:05 36.5 C 66 20 116/71 95 Room Air 09/26/23 11:21 36.4 C L 66 20 118/69 91 Room Air 09/26/23 09:58 Room Air 09/26/23 07:34 71 18 93 Room Air 09/26/23 07:07 67 09/26/23 07:06 36.6 C 69 18 107/67 95 Room Air Laboratory Results Short CBC 09/26/23 Range/Units 05:43 WBC 11.68 H (4.8-10.8) K/ul Hgb 12.0 L (14.0-18.0) g/dl Hct 37.3 L (42.0-52.0) % Plt Count 250 (130-400) K/uL BMP 09/26/23 05:43 Sodium 136 Potassium 3.5 Chloride 96 L Carbon Dioxide 36 H BUN 20 Creatinine 0.91 Glucose 181 H Calcium 9.0 Medications Administered Home Medications Medication Instructions Recorded Confirmed Last Taken aspirin 81 mg tablet,delayed 81 mg PO QAM 11/17/18 09/19/23 07/19/23 release (Ecotrin Low Strength) nitroglycerin 0.4 mg sublingual 0.4 mg sublingual DIRECTED PRN 12/09/18 09/19/23 11/08/22 tablet (Nitrostat) CHEST PAIN nystatin 100,000 unit/gram topical 1 applic topical TID PRN Skin 12/09/18 09/19/23 01/30/20 powder Irritation polyethylene glycol 3350 17 gram 17 g PO QAM PRN Constipation 12/09/18 09/19/23 07/19/23 oral powder packet (Miralax) finasteride 5 mg tablet 5 mg PO QAM 03/03/19 09/19/23 07/19/23 docusate sodium 100 mg capsule 100 mg PO BID PRN Constipation 08/11/19 09/19/23 07/19/23 folic acid 1 mg tablet 1 mg PO QAM 12/07/19 09/19/23 07/19/23 sennosides 8.6 mg tablet (senna) 8.6 mg PO DAILY PRN Constipation 12/07/19 09/19/23 02/27/21 omeprazole 20 mg capsule,delayed 20 mg PO DAILYBB 04/14/20 09/19/23 07/19/23 release gabapentin 800 mg tablet 800 mg PO TID 05/30/20 09/19/23 07/19/23 duloxetine 60 mg capsule,delayed 60 mg PO DAILY 07/05/20 09/19/23 07/19/23 release famotidine 20 mg tablet 20 mg PO DAILY 07/05/20 09/19/23 07/19/23 glipizide 10 mg tablet 10 mg PO BID 01/12/21 09/19/23 07/19/23 Lactobacillus acidoph-L.bulgaricus 1 tab PO TID #30 tabs 05/09/21 09/19/23 07/19/23 1 million cell chewable tablet (Lactinex) ferrous sulfate 325 mg (65 mg 325 mg PO QAM 10/24/21 09/19/23 07/19/23 iron) tablet hydroxyzine HCl 25 mg tablet 25 mg PO QID PRN Anxiety 10/24/21 09/19/23 Unknown urea 20 % topical cream 1 applic topical BID Dry Areas on 10/24/21 09/19/23 07/19/23 (Ureacin-20) Soles and Legs ondansetron HCl 4 mg tablet 4 mg PO Q8H PRN NAUSEA/VOMITING 12/17/21 09/19/23 Unknown benzonatate 100 mg capsule 100 mg PO TID PRN cough #10 caps 01/02/22 09/19/23 11/12/22 isosorbide dinitrate 30 mg tablet 30 mg PO DAILY 02/19/22 09/19/23 07/19/23 insulin aspart U-100 100 unit/mL 0 sliding scale dose subcut TIDM 04/07/23 09/19/23 07/19/23 (3 mL) subcutaneous pen (Novolog FlexPen U-100 Insulin aspart) insulin glargine 100 unit/mL 50 unit SC HS 04/13/23 09/19/23 07/19/23 subcutaneous solution (Lantus U-100 Insulin) buprenorphine HCl 8 mg sublingual See Rx Instructions .Route .COMPLEX 05/04/23 09/19/23 07/20/23 08:00 tablet warfarin 5 mg tablet 0 mg PO DAILY 07/20/23 09/19/23 07/19/23 codeine 10 mg-guaifenesin 100 mg/5 5 ml PO TID PRN Cough 08/22/23 09/19/23 Unknown mL Syrup dextromethorphan-guaifenesin 30 1 tab PO Q12H PRN Cough 08/22/23 09/19/23 Unknown mg-600 mg tablet extended albiosv22 hr (Mucinex DM) fluticasone 250 mcg-salmeterol 50 1 inh inhalation BID 08/22/23 09/19/23 Unknown mcg/dose blistr powdr for inhalation (Advair Diskus) fluticasone propionate 93 2 spray intranasal DAILY 08/22/23 09/19/23 Unknown mcg/actuation breath activated aerosol ipratropium 0.5 mg-albuterol 3 mg 3 ml inhalation TID 08/22/23 09/19/23 Unknown (2.5 mg base)/3 mL nebulization soln budesonide 0.5 mg/2 mL suspension 0.5 mg (2 mL) inhalation Q12H #60 08/26/23 09/19/23 Unknown for nebulization mL albuterol sulfate 90 mcg/actuation 2 puff inhalation Q4 PRN Dyspnea 09/26/23 Unknown aerosol inhaler 30 days #1 inh atorvastatin 80 mg tablet 80 mg PO QAM #30 tabs 09/26/23 Unknown cyclobenzaprine 10 mg tablet 10 mg PO BID PRN Muscle Spasm #60 09/26/23 Unknown tabs ergocalciferol (vitamin D2) 1,250 50,000 unit PO Q7D #10 caps 09/26/23 Unknown mcg (50,000 unit) capsule magnesium oxide 400 mg (241.3 mg 400 mg PO BID #60 tabs 09/26/23 Unknown magnesium) tablet metolazone 2.5 mg tablet 2.5 mg PO 3XWK #30 tabs 09/26/23 Unknown metoprolol succinate 50 mg 75 mg (1.5 x 50 mg) PO BID 30 days 09/26/23 Unknown tablet,extended release 24 hr #180 tabs potassium chloride 20 mEq 20 meq PO TID #90 tabs 09/26/23 Unknown tablet,extended release spironolactone 25 mg tablet 25 mg PO QAM #30 tabs 09/26/23 Unknown tamsulosin 0.4 mg capsule (Flomax) 0.8 mg (2 x 0.4 mg) PO QAM #180 09/26/23 Unknown caps torsemide 100 mg tablet 50 mg (1/2 x 100 mg) PO DAILY #30 09/26/23 Unknown tabs Active Medications Generic Name Dose Route Start Last Admin Trade Name Freq PRN Reason Stop Dose Admin Aspirin 81 mg 09/20/23 09:00 09/26/23 08:31 Aspirin 81 Mg Ectab PO 10/20/23 08:59 81 mg QAM EMPERATRIZ Administration Atorvastatin Calcium 80 mg 09/20/23 09:00 09/26/23 08:32 Atorvastatin 40 Mg Tab PO 10/20/23 08:59 80 mg QAM EMPERATRIZ Administration Bisacodyl 10 mg 09/21/23 16:54 09/22/23 17:39 Bisacodyl 10 Mg Supp CA 10/21/23 16:53 10 mg DAILY PRN Administration Constipation Bisacodyl 5 mg 09/25/23 11:30 09/26/23 08:31 Bisacodyl 5 Mg Tabec PO 10/25/23 11:29 5 mg DAILY EMPERATRIZ Administration Budesonide 0.5 mg 09/20/23 07:00 09/26/23 07:33 Budesonide 0.5 Mg/2 Ml Vial (Pulmicort) INH 10/20/23 06:59 0.5 mg Q12R EMPERATRIZ Administration Buprenorphine HCl 8 mg 09/20/23 09:00 09/26/23 08:50 Buprenorphine Hcl 8 Mg Subl SL 10/20/23 08:59 8 mg BID EMPERATRIZ Administration Buprenorphine HCl 4 mg 09/20/23 14:00 09/26/23 13:18 Buprenorphine Hcl 2 Mg Subl SL 10/20/23 13:59 4 mg DAILY@1400 EMPERATRIZ Administration Cyclobenzaprine HCl 10 mg 09/20/23 01:02 09/26/23 09:41 Cyclobenzaprine Hcl 10 Mg Tab PO 10/20/23 01:01 10 mg BID PRN Administration Muscle Spasm Docusate Sodium 100 mg 09/20/23 01:02 09/22/23 20:28 Docusate Sodium 100 Mg Cap PO 10/20/23 01:01 100 mg BID PRN Administration Constipation Duloxetine HCl 60 mg 09/20/23 09:00 09/26/23 08:33 Duloxetine Hcl 60 Mg Cap PO 10/20/23 08:59 60 mg DAILY EMPERATRIZ Administration Ergocalciferol 50,000 units 09/26/23 09:00 09/26/23 09:35 Ergocalciferol 50,000 Units 1250 Mcg Cap PO 10/26/23 08:59 50,000 units Q7D EMPERATRIZ Administration Famotidine 20 mg 09/20/23 09:00 09/26/23 08:32 Famotidine 20 Mg Tab PO 10/20/23 08:59 20 mg DAILY EMPERATRIZ Administration Ferrous Sulfate 325 mg 09/20/23 09:00 09/26/23 08:34 Ferrous Sulfate 325 Mg Tab PO 10/20/23 08:59 325 mg QAM EMPERATRIZ Administration Finasteride 5 mg 09/20/23 09:00 09/26/23 08:35 Finasteride 5 Mg Tab PO 10/20/23 08:59 5 mg QAM EMPERATRIZ Administration Fluticasone Propionate 2 sprays 09/20/23 09:00 09/26/23 08:43 Fluticasone Propionate Na Spr 16 Gm Btl NA 10/20/23 08:59 2 sprays DAILY EMPERATRIZ Administration Fluticasone/Vilanterol 1 puffs 09/20/23 09:00 09/26/23 08:35 Fluticasone/Vilanterol 100/25mcg 14 Puffs/Inhaler INH 10/20/23 08:59 1 puffs DAILY EMPERATRIZ Administration Folic Acid 1 mg 09/20/23 09:00 09/26/23 08:34 Folic Acid 1 Mg Tab PO 10/20/23 08:59 1 mg QAM EMPERATRIZ Administration Gabapentin 800 mg 09/20/23 09:00 09/26/23 13:18 Gabapentin 800 Mg Tab PO 10/20/23 08:59 800 mg TID EMPERATRIZ Administration Hydroxyzine HCl 25 mg 09/20/23 01:02 09/26/23 08:32 Hydroxyzine Hcl 25 Mg Tab PO 10/20/23 01:01 25 mg QID PRN Administration Anxiety Promethazine HCl 12.5 mg/ 50.5 mls @ 202 mls/hr 09/20/23 19:55 09/22/23 09:26 Sodium Chloride IV 10/20/23 19:54 Infused Q6H PRN Infusion Nausea And Vomiting Insulin Aspart 0 units 09/20/23 11:30 09/26/23 12:03 Insulin Aspart Per Unit Charge SC 10/20/23 11:29 9 units ACHS EMPERATRIZ Administration Insulin Glargine 50 units 09/20/23 21:00 09/25/23 21:17 Lantus Per Unit Charge SC 10/20/23 20:59 50 units HS EMPERATRIZ Administration Isosorbide Dinitrate 30 mg 09/20/23 09:00 09/26/23 08:33 Isosorbide Dinitrate 10 Mg Tab PO 10/20/23 08:59 30 mg DAILY EMPERATRIZ Administration Magnesium Oxide 400 mg 09/20/23 09:00 09/26/23 08:34 Magnesium Oxide 400 Mg Tab PO 10/20/23 08:59 400 mg DAILY EMPERATRIZ Administration Metoprolol Succinate 75 mg 09/20/23 09:00 09/26/23 08:34 Metoprolol Succ 25mg Ext Rel Tab PO 10/20/23 08:59 75 mg BID EMPERATRIZ Administration Miconazole Nitrate 1 appln 09/20/23 02:45 09/26/23 12:03 Miconazole Nitrate Powder 85 Gm EXT 10/20/23 02:44 1 appln Q6H [facility] Administration Miscellaneous 1 each 09/20/23 08:00 09/26/23 17:21 Order Awaiting Action: Urea [Ureacin-20] 20 % Cream N/A 10/20/23 07:59 Not Given QS EMPERATRIZ Miscellaneous 1 each 09/23/23 08:59 09/26/23 08:30 Remove Nicoderm Patch N/A 10/23/23 08:58 1 each DAILY@0859 EMPERATRIZ Administration Nicotine 14 mg 09/23/23 09:00 09/26/23 08:32 Nicotine 14 Mg/24 Hr Patch TD 10/23/23 08:59 14 mg QAM EMPERATRIZ Administration Ondansetron HCl 4 mg 09/20/23 02:00 09/21/23 04:09 Ondansetron 4 Mg Od Tab PO 10/20/23 01:59 4 mg Q8H PRN Administration Nausea And Vomiting Ondansetron HCl 4 mg 09/21/23 12:45 09/22/23 12:13 Ondansetron Inj 2 Mg/Ml 2 Ml Vial IV 10/21/23 12:44 4 mg Q6H PRN Administration Nausea And Vomiting Pantoprazole Sodium 40 mg 09/20/23 06:30 09/26/23 05:43 Pantoprazole 40 Mg Tab PO 10/20/23 06:29 40 mg DAILYBB EMPERATRIZ Administration Polyethylene Glycol 17 gm 09/25/23 13:00 09/26/23 12:03 Polyethylene (Miralax) 17 Gm Pack PO 10/25/23 12:59 17 gm Q6H EMPERATRIZ Administration Potassium Chloride 20 meq 09/21/23 13:00 09/26/23 13:17 Potassium Chloride Crtab 20 Meq Tabcr PO 10/21/23 12:59 20 meq QID EMPERATRIZ Administration Sennosides 8.6 mg 09/25/23 21:00 09/26/23 08:34 Senna 8.6 Mg Tab PO 10/25/23 20:59 8.6 mg BID EMPERATRIZ Administration Spironolactone 25 mg 09/20/23 09:00 09/26/23 08:35 Spironolactone 25 Mg Tab PO 10/20/23 08:59 25 mg QAM EMPERATRIZ Administration Tamsulosin HCl 0.8 mg 09/20/23 09:00 09/26/23 08:34 Tamsulosin Hcl 0.4 Mg Cap PO 10/20/23 08:59 0.8 mg QAM EMPERATRIZ Administration Torsemide 50 mg 09/20/23 09:00 09/26/23 08:33 Torsemide 10 Mg Tab PO 10/20/23 08:59 50 mg DAILY EMPERATRIZ Administration (2) Acute renal failure (ARF) Acute renal failure type: unspecified Qualified Code(s): N17.9 - Acute kidney failure, unspecified (4) AMS (altered mental status) Altered mental status type: unspecified Qualified Code(s): R41.82 - Altered mental status, unspecified
[2023-09-26] MEDS: LANTUS PER UNIT CHARGE SC SCH (20:32)
[2023-09-26 21:59] LABS: Adenovirus PCR Not Detected (NotDetected); Bordetella parapertussis PCR Not Detected (NotDetected); Bordetella pertussis PCR Not Detected (NotDetected); Chlamydia pneumoniae PCR Not Detected (NotDetected); Coronavirus 229E PCR Not Detected (NotDetected); Coronavirus CoV-2 (COVID19)PCR Not Detected (NotDetected); Coronavirus HKU1 PCR Not Detected (NotDetected); Coronavirus NL63 PCR Not Detected (NotDetected); Coronavirus OC43PCR Not Detected (NotDetected); Human Metapneumovirus PCR Not Detected (NotDetected); Influenza A PCR Not Detected (NotDetected); Influenza B PCR Not Detected (NotDetected); Mycoplasma pneumoniae PCR Not Detected (NotDetected); Parainfluenza Virus 1 PCR Not Detected (NotDetected); Parainfluenza Virus 2 PCR Not Detected (NotDetected); Parainfluenza Virus 3 PCR Not Detected (NotDetected); Parainfluenza Virus 4 PCR Not Detected (NotDetected); Respiratory Syncytial VirusPCR Not Detected (NotDetected); Rhinovirus/Enterovirus PCR Not Detected (NotDetected)
[2023-09-27] MEDS: POLYETHYLENE (MIRALAX) 17 GM PACK PO SCH ×5 (01:44→22:07)
[2023-09-27] MEDS ORDERED: KETOROLAC TROMETHAMINE 15 MG/ML VIAL IV ONE (03:26)
[2023-09-27] MEDS: MICONAZOLE NITRATE POWDER 85 GM EXT SCH ×4 (06:14→22:06)
[2023-09-27] MEDS: PANTOprazole 40 MG TAB PO SCH (06:14)
[2023-09-27] MEDS: BUDESONIDE 0.5 MG/2 ML VIAL (PULMICORT) INH SCH ×2 (07:23→19:36)
[2023-09-27 07:27] LABS: Hematocrit (blood only) 36.3 % (42.0-52.0); Hemoglobin 11.7 g/dl (14.0-18.0); Mean Corpuscular Hemoglobin 25.3 pg (25.0-34.0); Mean Corpuscular Hgb Conc 32.2 g/dL (32.0-36.0); Mean Corpuscular Volume 78.4 fL (80.0-100.0); Mean Platelet Volume 10.7 fL (9.4-12.4); Platelet Count 243 K/uL (130-400); RDW Coefficient of Variation 21.6 % (11.5-14.5); RDW Standard Deviation 61.2 fL (36.4-46.3); Red Blood Count 4.63 M/uL (4.70-6.10); White Blood Count 11.19 K/ul (4.8-10.8)
[2023-09-27 07:52] LABS: BUN Creatinine Ratio 21.6 (10-20); Calcium 9.3 mg/dl (8.6-10.3); Creatinine Clr Calc Pharmacy 151.5 ml/min; Est GFR (African American) 96.8 ml/min; Est GFR (Non-African American) 83.5 ml/min; Magnesium 1.8 mg/dl (1.7-2.4); Phosphorus 2.9 mg/dl (2.5-4.9); Potassium 4.1 mmol/L (3.5-5.1)
[2023-09-27 08:18] LABS: INR 3.7 (0.9-1.1); Prothrombin Time 37.3 Seconds (9.0-12.0)
[2023-09-27] MEDS: FLUTICASONE/VILANTEROL 100/25MCG 14 PUFFS/INHALER INH SCH (09:03)
[2023-09-27] MEDS: FLUTICASONE PROPIONATE NA SPR 16 GM BTL SCH (09:03)
[2023-09-27] MEDS: INSULIN ASPART PER UNIT CHARGE SC SCH ×4 (09:07→21:30)
[2023-09-27] MEDS: buprenorphine HCL 8 MG SUBL SL SCH ×2 (09:08→21:30)
[2023-09-27] MEDS: GABAPENTIN 800 MG TAB PO SCH ×3 (10:02→20:18)
[2023-09-27] MEDS: NICOTINE 14 MG/24 HR PATCH TD SCH (10:02)
[2023-09-27] MEDS: ISOSORBIDE DINITRATE 10 MG TAB PO SCH (10:03)
[2023-09-27] MEDS: METOPROLOL SUCC 25MG EXT REL TAB PO SCH ×2 (10:03→20:20)
[2023-09-27] MEDS: ATORVASTATIN 40 MG TAB PO SCH (10:03)
[2023-09-27] MEDS: FOLIC ACID 1 MG TAB PO SCH (10:04)
[2023-09-27] MEDS: SPIRONOLACTONE 25 MG TAB PO SCH (10:05)
[2023-09-27] MEDS: MAGNESIUM OXIDE 400 MG TAB PO SCH (10:05)
[2023-09-27] MEDS: ASPIRIN 81 MG ECTAB PO SCH (10:05)
[2023-09-27] MEDS: TORSEMIDE 10 MG TAB PO SCH (10:06)
[2023-09-27] MEDS: bisacodyL 5 MG TABEC PO SCH (10:07)
[2023-09-27] MEDS: TAMSULOSIN HCL 0.4 MG CAP PO SCH (10:07)
[2023-09-27] MEDS: FINASTERIDE 5 MG TAB PO SCH (10:07)
[2023-09-27] MEDS: FERROUS SULFATE 325 MG TAB PO SCH (10:08)
[2023-09-27] MEDS: SENNA 8.6 MG TAB PO SCH ×2 (10:08→20:18)
[2023-09-27] MEDS: DULoxetine HCL 60 MG CAP PO SCH (10:11)
[2023-09-27] MEDS: FAMOTIDINE 20 MG TAB PO SCH (10:11)
[2023-09-27] MEDS: POTASSIUM CHLORIDE CRTAB 20 MEQ TABCR PO SCH ×4 (10:11→20:18)
[2023-09-27] MEDS: metOLazone 2.5 MG TABLET PO SCH (10:20)
[2023-09-27] MEDS ORDERED: ACETAMINOPHEN 1,000 MG/100 ML VIAL IV ONE (11:42)
[2023-09-27] MEDS: buprenorphine HCL 2 MG SUBL SL SCH (13:43)
--- NOTE | 2023-09-27 15:39 | Hospitalist Progress Note ---
Date of Service September 27, 2023 Assessment & Plan (1) Acute UTI (urinary tract infection): (2) Acute renal failure (ARF): (3) Elevated INR: (4) AMS (altered mental status): Plan Mr. Milner is a 53 year old gentleman with a past medical history significant for chronic diastolic heart failure, CAD/STEMI, prior subdural hematoma/subarachnoid hemorrhage, hypertension, hyperlipidemia, COPD, recurrent PE on Coumadin, DM 2,recurrent UTIs secondary to BPH/chronic urinary retention indwelling Lloyd catheter, chronic anemia, chronic pain on buprenorphine, hx MRSA/VRE who presented on 09/19 with AMS and decreased UOP. Patient was admitted for evaluation and management of MAHAMED in setting of CAUTI. Patient is readmitted multiple times over the course of the last year. When discussing barriers to health care as an outpatient, transportation and patient's habitus are limiting factors, as well as patient's understanding of utilization of health care resources and access to community services. CAUTI--POA Chronic urinary retention indwelling Lloyd catheter Possible sepsis treated and resolved --Blood culture negative Urine culture--mixed isabel Normal lactic acid Completed Levaquin for 5 day course Catheter exchanged while in ED 09/19 Urology signed off -Patient failed previous void trial secondary to habitus -Encouraged patient to follow up with urology in 3-4 weeks for exchange prior to infection setting in Need follow up with Urology on discharge Acute metabolic encephalopathy secondary to above: resolved Reported history of falls --CT head:No evidence of acute intracranial pathology. --CXR:Cardiomegaly with no acute cardiopulmonary abnormality identified. Fall precautions PT OT as able Mental status back to baseline No acute issues currently MAHAMED:resolved Cr 4.82>4.2>2.5 >1.0 Avoid nephrotoxic agents as able Monitor renal function Discontinued IV fluids Continue home diuretics Vitamin D Deficiency --Vit D level 9 Started on Q7D 50,000U D2 Hypokalemia Replete electrolytes as needed Fecal retention -KUB:Gaseous distention of the stomach with nonobstructive bowel gas pattern. Moderate to extensive colonic fecal retention. Continue bowel regimen Encouraged to ambulate as able Recurrent PE on coumadin Supratherapeutic INR Received Vit K 5mg Monitor INR INR 3.7 today Hold Coumadin today COPD Ongoing tobacco use disorder Currently no signs of exacerbation Continue home inhalers Chronic pain syndrome On Suboxone Chronic diastolic CHF Monitor volume status Continue diuretics Hyperlipidemia on statin BPH Continue Proscar, Flomax Morbid obesity BMI 60.8 DVT Px: Coumadin CODE STATUS Full Code Admission and Anticipated Discharge Date Admission Date: September 19, 2023 Subjective Patient is seen and examined at bedside States not feeling well today Reports no specific complaints Denies any chest pain, dyspnea, dizziness, nausea, vomiting, abdominal pain No other complaints Review of Systems Review of Systems: All systems reviewed & are unremarkable except as noted in Subjective Physical Exam Physical Exam: Physical Exam: Vitals signs as noted above General Appearance:Morbidly Obese, no apparent distress Head: normocephalic, Atraumatic Eyes: normal inspection, EOMI Neck: supple, Trachea midline Respiratory/Chest: Decreased breath sounds, CTA, No accessory muscle use Cardiovascular: S1, S2, No murmur Abdomen/GI:Soft, Non tender, Bowel sounds present Extremities/Musculoskeletal:normal inspection, chronic venous stasis changes, minimal pedal edema Neurologic/Psych:AAOX3, grossly no focal neurological deficits Skin: normal color, warm Results & Data Results & Data Vital Signs (Past 12 Hours) Vital Signs Temp Pulse Pulse Resp BP Pulse Ox O2 Del Method 09/27/23 10:36 36.6 C 78 17 107/62 93 Nasal Cannula 09/27/23 07:33 65 09/27/23 07:11 36.4 C L 67 19 131/61 94 Nasal Cannula 09/27/23 03:44 36.5 C 68 20 102/68 94 Room Air O2 Flow Rate 09/27/23 10:36 4 09/27/23 07:33 09/27/23 07:11 4 09/27/23 03:44 Laboratory Results Short CBC 09/27/23 Range/Units 07:04 WBC 11.19 H (4.8-10.8) K/ul Hgb 11.7 L (14.0-18.0) g/dl Hct 36.3 L (42.0-52.0) % Plt Count 243 (130-400) K/uL BMP 09/27/23 07:04 Sodium 138 Potassium 4.1 Chloride 100 Carbon Dioxide 35 H BUN 22 Creatinine 1.02 Glucose 177 H Calcium 9.3 (2) Acute renal failure (ARF) Acute renal failure type: unspecified Qualified Code(s): N17.9 - Acute kidney failure, unspecified (4) AMS (altered mental status) Altered mental status type: unspecified Qualified Code(s): R41.82 - Altered mental status, unspecified
[2023-09-27] MEDS ORDERED: ACETAMINOPHEN 1,000 MG/100 ML VIAL IV STA (19:49)
[2023-09-27] MEDS: CYCLOBENZAPRINE HCL 10 MG TAB PO PRN (20:18)
[2023-09-27] MEDS: LANTUS PER UNIT CHARGE SC SCH (21:30)
[2023-09-28] MEDS ORDERED: INSULIN ASPART PER UNIT CHARGE SC STA (00:54)
[2023-09-28] MEDS ORDERED: KETOROLAC TROMETHAMINE 15 MG/ML VIAL IV ONE (01:33)
[2023-09-28] MEDS: BUDESONIDE 0.5 MG/2 ML VIAL (PULMICORT) INH SCH ×2 (05:51→20:01)
[2023-09-28] MEDS: MICONAZOLE NITRATE POWDER 85 GM EXT SCH ×3 (06:08→17:35)
[2023-09-28] MEDS: POLYETHYLENE (MIRALAX) 17 GM PACK PO SCH ×3 (06:13→18:00)
[2023-09-28] MEDS: PANTOprazole 40 MG TAB PO SCH (06:34)
[2023-09-28 07:20] LABS: BUN Creatinine Ratio 22.2 (10-20); Calcium 9.6 mg/dl (8.6-10.3); Creatinine Clr Calc Pharmacy 156.1 ml/min; Est GFR (African American) 100.4 ml/min; Est GFR (Non-African American) 86.6 ml/min; Potassium 3.6 mmol/L (3.5-5.1)
[2023-09-28] MEDS: FLUTICASONE PROPIONATE NA SPR 16 GM BTL SCH (07:30)
[2023-09-28] MEDS: TORSEMIDE 10 MG TAB PO SCH (07:31)
[2023-09-28] MEDS: FLUTICASONE/VILANTEROL 100/25MCG 14 PUFFS/INHALER INH SCH (07:31)
[2023-09-28] MEDS: ATORVASTATIN 40 MG TAB PO SCH (07:32)
[2023-09-28] MEDS: ASPIRIN 81 MG ECTAB PO SCH (07:32)
[2023-09-28] MEDS: MAGNESIUM OXIDE 400 MG TAB PO SCH (07:32)
[2023-09-28] MEDS: DULoxetine HCL 60 MG CAP PO SCH (07:33)
[2023-09-28] MEDS: TAMSULOSIN HCL 0.4 MG CAP PO SCH (07:33)
[2023-09-28] MEDS: SENNA 8.6 MG TAB PO SCH ×2 (07:33→20:45)
[2023-09-28] MEDS: SPIRONOLACTONE 25 MG TAB PO SCH (07:34)
[2023-09-28] MEDS: POTASSIUM CHLORIDE CRTAB 20 MEQ TABCR PO SCH ×4 (07:34→20:41)
[2023-09-28] MEDS: FAMOTIDINE 20 MG TAB PO SCH (07:34)
[2023-09-28] MEDS: FERROUS SULFATE 325 MG TAB PO SCH (07:34)
[2023-09-28] MEDS: GABAPENTIN 800 MG TAB PO SCH ×3 (07:34→20:40)
[2023-09-28] MEDS: FOLIC ACID 1 MG TAB PO SCH (07:34)
[2023-09-28] MEDS: ISOSORBIDE DINITRATE 10 MG TAB PO SCH (07:35)
[2023-09-28] MEDS: FINASTERIDE 5 MG TAB PO SCH (07:35)
[2023-09-28] MEDS: METOPROLOL SUCC 25MG EXT REL TAB PO SCH ×2 (07:35→20:43)
[2023-09-28] MEDS: NICOTINE 14 MG/24 HR PATCH TD SCH (07:36)
[2023-09-28] MEDS: bisacodyL 5 MG TABEC PO SCH (07:38)
[2023-09-28] MEDS: buprenorphine HCL 8 MG SUBL SL SCH ×2 (07:39→20:39)
[2023-09-28 07:57] LABS: Prothrombin Time 40.5 Seconds (9.0-12.0)
[2023-09-28] MEDS: INSULIN ASPART PER UNIT CHARGE SC SCH ×4 (08:24→20:52)
[2023-09-28] MEDS ORDERED: ACETAMINOPHEN 1,000 MG/100 ML VIAL IV STA ×2 (08:57→21:34)
--- NOTE | 2023-09-28 10:59 | Hospitalist Progress Note ---
Date of Service September 28, 2023 Assessment & Plan (1) Acute UTI (urinary tract infection): (2) Acute renal failure (ARF): (3) Elevated INR: (4) AMS (altered mental status): Plan Mr. Milner is a 53 year old gentleman with a past medical history significant for chronic diastolic heart failure, CAD/STEMI, prior subdural hematoma/subarachnoid hemorrhage, hypertension, hyperlipidemia, COPD, recurrent PE on Coumadin, DM 2,recurrent UTIs secondary to BPH/chronic urinary retention indwelling Lloyd catheter, chronic anemia, chronic pain on buprenorphine, hx MRSA/VRE who presented on 09/19 with AMS and decreased UOP. Patient was admitted for evaluation and management of MAHAMED in setting of CAUTI. Patient is readmitted multiple times over the course of the last year. When discussing barriers to health care as an outpatient, transportation and patient's habitus are limiting factors, as well as patient's understanding of utilization of health care resources and access to community services. CAUTI--POA Chronic urinary retention indwelling Lloyd catheter Possible sepsis treated and resolved --Blood culture negative Urine culture--mixed isabel Normal lactic acid Completed Levaquin for 5 day course Catheter exchanged while in ED 09/19 Urology signed off -Patient failed previous void trial secondary to habitus -Encouraged patient to follow up with urology in 3-4 weeks for exchange prior to infection setting in Need follow up with Urology on discharge Acute metabolic encephalopathy secondary to above: resolved Reported history of falls --CT head:No evidence of acute intracranial pathology. --CXR:Cardiomegaly with no acute cardiopulmonary abnormality identified. Fall precautions PT OT as able Mental status back to baseline No acute issues currently MAHAMED:resolved Cr 4.82>4.2>2.5 >1.0 Avoid nephrotoxic agents as able Monitor renal function Discontinued IV fluids Continue home diuretics Vitamin D Deficiency --Vit D level 9 Started on Q7D 50,000U D2 Hypokalemia Replete electrolytes as needed Fecal retention -KUB:Gaseous distention of the stomach with nonobstructive bowel gas pattern. Moderate to extensive colonic fecal retention. Continue bowel regimen Encouraged to ambulate as able Recurrent PE on coumadin Supratherapeutic INR Received Vit K 5mg Monitor INR INR 4.0 today Hold Coumadin today repeat INR in a.m. COPD Ongoing tobacco use disorder Currently no signs of exacerbation Continue home inhalers Chronic pain syndrome On Suboxone Chronic diastolic CHF Monitor volume status Continue diuretics Hyperlipidemia on statin BPH Continue Proscar, Flomax Morbid obesity BMI 60.8 DVT Px: Coumadin CODE STATUS Full Code Dispo: Pt hopeful for discharge tomorrow, will need repeat INR, also obtain repeat flu, rsv swab per pt request Pt was seen and examined in collaboration with Dr. Wright, please see addendum A total of 45 was spent coordinating, documenting, and providing care for this patient excluding time spent in the performance of separately billed services. This included personally viewing all current laboratories and imaging studies, medication reconciliation, outpatient chart review, and discussion with specialists. Admission and Anticipated Discharge Date Admission Date: September 19, 2023 Supervising Physician Co-Signing Physician Notes Patient is seen and examined at bedside. States having generalized myalgia, sore throat, chills. He personally feels not ready for discharge. Physical exam unchanged from yesterday. Serological test for flu, RSV pending. Continue current medications. Further management based on serological testing. I personally reviewed the record. Patient is interviewed and examined at bedside. Patient's care is coordinated with Angela Welch PA-C. Please refer to the documentation above for details of patient's presentation and for discussion of other issues. Subjective Patient was seen and examined in 314. Follow-up UTI. Patient states he felt chilled, sinus congestion, sore throat and myalgias. He feels he is getting a flu. He states he was tested a couple days ago but wishes to be retested. He is hopeful to go home tomorrow, but does not want to go home today. He denies fever, sweats, lightheadedness, dizziness, chest pain, shortness breath, nausea or vomiting. He has urinary catheter in place. He is moving bowels. He does complain of left shoulder pain. He feels this is secondary to when he syncopized prior to arrival and he fell on his shoulder. He does have full range of motion but has pain with elevation. He is requesting IV Tylenol. Review of Systems Review of Systems: All systems reviewed & are unremarkable except as noted in HPI & below Physical Exam Physical Exam: Gen: WD/WN, M, morbidly obese, NAD, A&O x3 HEENT: Normocephalic, atraumatic, conjunctivae moist, sclerae anicteric, mucous membranes moist. Lung: Clear to Auscultation bilaterally, diminished b/l due to body habitus, no wheezes/rales/rhonchi Heart: Regular rate, regular rhythm, no murmurs, rubs, or gallops Abdomen: Soft, NT, ND +BS x 4 Extremities: b/l pedal edema, b/l venous stasis changes Skin: Warm, no rash, negative turgor. Results & Data Results & Data Vital Signs (Past 12 Hours) Vital Signs Temp Pulse Resp BP Pulse Ox O2 Del Method 09/28/23 07:46 36.5 C 70 16 112/73 96 Room Air 09/28/23 05:52 64 18 97 Room Air Laboratory Results BMP 09/28/23 06:09 Sodium 138 Potassium 3.6 Chloride 96 L Carbon Dioxide 36 H BUN 22 Creatinine 0.99 Glucose 130 H Calcium 9.6 I have independently reviewed and interpreted patient's PT/INR,BMP. Medications Administered Current Inpatient Medications Acetaminophen (Acetaminophen 500 Mg Tab) 1,000 mg PO Q8H PRN PRN Reason: Fever or headache Stop: 10/20/23 02:13 Albuterol (Albuterol Hfa 8 Gm Inhaler) 2 puffs INH Q4 PRN PRN Reason: Dyspnea Stop: 10/20/23 01:01 Albuterol (Albut/Ipratrop 3mg/0.5mg Neb 3 Ml Vial) 3 ml INH TIDR PRN; Protocol PRN Reason: Shortness Of Breath Or Wheezing Stop: 10/20/23 06:59 Aspirin (Aspirin 81 Mg Ectab) 81 mg PO [facility] Stop: 10/20/23 08:59 Last Admin: 09/28/23 07:32 Dose: 81 mg Atorvastatin Calcium (Atorvastatin 40 Mg Tab) 80 mg PO QAM [facility] Stop: 10/20/23 08:59 Last Admin: 09/28/23 07:32 Dose: 80 mg Benzonatate (Benzonatate 100 Mg Capsule) 100 mg PO TID PRN PRN Reason: cough Stop: 10/20/23 01:01 Bisacodyl (Bisacodyl 10 Mg Supp) [address] DAILY PRN PRN Reason: Constipation Stop: 10/21/23 16:53 Last Admin: 09/22/23 17:39 Dose: 10 mg Bisacodyl (Bisacodyl 5 Mg Tabec) 5 mg PO DAILY [facility] Stop: 10/25/23 11:29 Last Admin: 09/28/23 07:38 Dose: 5 mg Budesonide (Budesonide 0.5 Mg/2 Ml Vial (Pulmicort)) 0.5 mg INH Q12R [facility] Stop: 10/20/23 06:59 Last Admin: 09/28/23 05:51 Dose: 0.5 mg Buprenorphine HCl (Buprenorphine Hcl 8 Mg Subl) 8 mg SL BID EMPERATRIZ Stop: 10/20/23 08:59 Last Admin: 09/28/23 07:39 Dose: 8 mg Buprenorphine HCl (Buprenorphine Hcl 2 Mg Subl) 4 mg SL DAILY@1400 [facility] Stop: 10/20/23 13:59 Last Admin: 09/27/23 13:43 Dose: 4 mg Cyclobenzaprine HCl (Cyclobenzaprine Hcl 10 Mg Tab) 10 mg PO BID PRN PRN Reason: Muscle Spasm Stop: 10/20/23 01:01 Last Admin: 09/27/23 20:18 Dose: 10 mg Dextrose (Dextrose 50% 50 Ml Syringe) 25 - 50 ml IV UD PRN; Protocol PRN Reason: Hypoglycemia Protocol Stop: 10/20/23 09:38 Docusate Sodium (Docusate Sodium 100 Mg Cap) 100 mg PO BID PRN PRN Reason: Constipation Stop: 10/20/23 01:01 Last Admin: 09/22/23 20:28 Dose: 100 mg Duloxetine HCl (Duloxetine Hcl 60 Mg Cap) 60 mg PO DAILY [facility] Stop: 10/20/23 08:59 Last Admin: 09/28/23 07:33 Dose: 60 mg Ergocalciferol (Ergocalciferol 50,000 Units 1250 Mcg Cap) 50,000 units PO Q7D EMPERATRIZ Stop: 10/26/23 08:59 Last Admin: 09/26/23 09:35 Dose: 50,000 units Famotidine (Famotidine 20 Mg Tab) 20 mg PO DAILY [facility] Stop: 10/20/23 08:59 Last Admin: 09/28/23 07:34 Dose: 20 mg Ferrous Sulfate (Ferrous Sulfate 325 Mg Tab) 325 mg PO QAM [facility] Stop: 10/20/23 08:59 Last Admin: 09/28/23 07:34 Dose: 325 mg Finasteride (Finasteride 5 Mg Tab) 5 mg PO QAM [facility] Stop: 10/20/23 08:59 Last Admin: 09/28/23 07:35 Dose: 5 mg Fluticasone Propionate (Fluticasone Propionate Na Spr 16 Gm Btl) 2 sprays NA DAILY [facility] Stop: 10/20/23 08:59 Last Admin: 09/28/23 07:30 Dose: 2 sprays Fluticasone/Vilanterol (Fluticasone/Vilanterol 100/25mcg 14 Puffs/Inhaler) 1 puffs INH DAILY [facility] Stop: 10/20/23 08:59 Last Admin: 09/28/23 07:31 Dose: 1 puffs Folic Acid (Folic Acid 1 Mg Tab) 1 mg PO QAM [facility] Stop: 10/20/23 08:59 Last Admin: 09/28/23 07:34 Dose: 1 mg Gabapentin (Gabapentin 800 Mg Tab) 800 mg PO TID [facility] Stop: 10/20/23 08:59 Last Admin: 09/28/23 07:34 Dose: 800 mg Glucagon (Glucagon For Inj 1 Mg Vial) 1 mg SQ UD PRN; Protocol PRN Reason: Hypoglycemia Protocol Stop: 10/20/23 09:38 Glucose (Glucose 10 Tab/Tube) 4 - 8 tab PO UD PRN; Protocol PRN Reason: Hypoglycemia Treatment Stop: 10/20/23 09:38 Glucose (Glucose 40% Gel 15 Gm Tube) 15 - 30 gm PO UD PRN; Protocol PRN Reason: Hypoglycemia Protocol Stop: 10/20/23 09:38 Hydroxyzine HCl (Hydroxyzine Hcl 25 Mg Tab) 25 mg PO QID PRN PRN Reason: Anxiety Stop: 10/20/23 01:01 Last Admin: 09/26/23 08:32 Dose: 25 mg Promethazine HCl 12.5 mg/ (Sodium Chloride) 50.5 mls @ 202 mls/hr IV Q6H PRN PRN Reason: Nausea And Vomiting Stop: 10/20/23 19:54 Last Infusion: 09/22/23 09:26 Dose: Infused Insulin Aspart (Insulin Aspart Per Unit Charge) 0 units SC ACHS [facility] Stop: 10/20/23 11:29 Last Admin: 09/28/23 08:24 Dose: 4 units Insulin Glargine (Lantus Per Unit Charge) 50 units SC [facility] Stop: 10/20/23 20:59 Last Admin: 09/27/23 21:30 Dose: 50 units Isosorbide Dinitrate (Isosorbide Dinitrate 10 Mg Tab) 30 mg PO DAILY [facility] Stop: 10/20/23 08:59 Last Admin: 09/28/23 07:35 Dose: 30 mg Magnesium Oxide (Magnesium Oxide 400 Mg Tab) 400 mg PO DAILY [facility] Stop: 10/20/23 08:59 Last Admin: 09/28/23 07:32 Dose: 400 mg Metolazone (Metolazone 2.5 Mg Tablet) 2.5 mg PO MoWeFr@0830 [facility] Stop: 10/20/23 08:29 Last Admin: 09/27/23 10:20 Dose: 2.5 mg Metoprolol Succinate (Metoprolol Succ 25mg Ext Rel Tab) 75 mg PO BID [facility] Stop: 10/20/23 08:59 Last Admin: 09/28/23 07:35 Dose: 75 mg Miconazole Nitrate (Miconazole Nitrate Powder 85 Gm) 1 appln EXT Q6H [facility] Stop: 10/20/23 02:44 Last Admin: 09/28/23 06:08 Dose: Not Given Miscellaneous (Order Awaiting Action: Urea [Ureacin-20] 20 % Cream) 1 each N/A QS [facility] Stop: 10/20/23 07:59 Last Admin: 09/28/23 07:37 Dose: 1 each Miscellaneous (Carbohydrates For Hypoglycemia ) 15 - 30 gm PO UD PRN PRN Reason: Hypoglycemia Protocol Stop: 10/20/23 09:38 Miscellaneous (Remove Nicoderm Patch) 1 each N/A DAILY@0859 [facility] Stop: 10/23/23 08:58 Last Admin: 09/28/23 07:37 Dose: 1 each Nicotine (Nicotine 14 Mg/24 Hr Patch) 14 mg TD QAM [facility] Stop: 10/23/23 08:59 Last Admin: 09/28/23 07:36 Dose: 14 mg Nitroglycerin (Nitroglycerin Sl 0.4 Mg/Tab Tab) 0.4 mg SL Q5M PRN PRN Reason: CHEST PAIN Stop: 10/20/23 01:01 Ondansetron HCl (Ondansetron 4 Mg Od Tab) 4 mg PO Q8H PRN PRN Reason: Nausea And Vomiting Stop: 10/20/23 01:59 Last Admin: 09/21/23 04:09 Dose: 4 mg Ondansetron HCl (Ondansetron Inj 2 Mg/Ml 2 Ml Vial) 4 mg IV Q6H PRN PRN Reason: Nausea And Vomiting Stop: 10/21/23 12:44 Last Admin: 09/22/23 12:13 Dose: 4 mg Pantoprazole Sodium (Pantoprazole 40 Mg Tab) 40 mg PO DAILYBB [facility] Stop: 10/20/23 06:29 Last Admin: 09/28/23 06:34 Dose: 40 mg Polyethylene Glycol (Polyethylene (Miralax) 17 Gm Pack) 17 gm PO Q6H [facility] Stop: 10/25/23 12:59 Last Admin: 09/28/23 06:13 Dose: 17 gm Potassium Chloride (Potassium Chloride Crtab 20 Meq Tabcr) 20 meq PO QID [facility] Stop: 10/21/23 12:59 Last Admin: 09/28/23 07:34 Dose: 20 meq Sennosides (Senna 8.6 Mg Tab) 8.6 mg PO BID [facility] Stop: 10/25/23 20:59 Last Admin: 09/28/23 07:33 Dose: 8.6 mg Spironolactone (Spironolactone 25 Mg Tab) 25 mg PO QAM [facility] Stop: 10/20/23 08:59 Last Admin: 09/28/23 07:34 Dose: 25 mg Tamsulosin HCl (Tamsulosin Hcl 0.4 Mg Cap) 0.8 mg PO QAM [facility] Stop: 10/20/23 08:59 Last Admin: 09/28/23 07:33 Dose: 0.8 mg Torsemide (Torsemide 10 Mg Tab) 50 mg PO DAILY [facility] Stop: 10/20/23 08:59 Last Admin: 09/28/23 07:31 Dose: 50 mg Warfarin Sodium (Warfarin Sod 5 Mg Tab) 5 mg PO DAILY@1600 [facility] Stop: 10/26/23 15:59 Last Admin: 09/26/23 17:31 Dose: 5 mg (2) Acute renal failure (ARF) Acute renal failure type: unspecified Qualified Code(s): N17.9 - Acute kidney failure, unspecified (4) AMS (altered mental status) Altered mental status type: unspecified Qualified Code(s): R41.82 - Altered mental status, unspecified
[2023-09-28] MEDS: buprenorphine HCL 2 MG SUBL SL SCH (13:34)
[2023-09-28] MEDS: LANTUS PER UNIT CHARGE SC SCH (20:53)
[2023-09-28 21:01] LABS: Influenza A PCR (Fusion) Negative (Negative); Influenza B PCR (Fusion) Negative (Negative); RSV PCR (Fusion) Negative (Negative)
[2023-09-29] MEDS: MICONAZOLE NITRATE POWDER 85 GM EXT SCH ×5 (01:04→23:23)
[2023-09-29] MEDS: POLYETHYLENE (MIRALAX) 17 GM PACK PO SCH ×4 (01:04→21:16)
[2023-09-29] MEDS: PANTOprazole 40 MG TAB PO SCH (05:49)
[2023-09-29 06:21] LABS: Hematocrit (blood only) 36.9 % (42.0-52.0); Hemoglobin 11.8 g/dl (14.0-18.0); Mean Corpuscular Hemoglobin 25.3 pg (25.0-34.0); Mean Corpuscular Volume 79.2 fL (80.0-100.0); Mean Platelet Volume 10.6 fL (9.4-12.4); Platelet Count 271 K/uL (130-400); RDW Coefficient of Variation 21.5 % (11.5-14.5); RDW Standard Deviation 61.7 fL (36.4-46.3); Red Blood Count 4.66 M/uL (4.70-6.10); White Blood Count 10.95 K/ul (4.8-10.8)
[2023-09-29 06:35] LABS: BUN Creatinine Ratio 21.5 (10-20); Calcium 9.7 mg/dl (8.6-10.3); Creatinine Clr Calc Pharmacy 166.2 ml/min; Est GFR (African American) 108.2 ml/min; Est GFR (Non-African American) 93.4 ml/min; Potassium 3.7 mmol/L (3.5-5.1)
[2023-09-29 06:51] LABS: INR 3.3 (0.9-1.1); Prothrombin Time 33.3 Seconds (9.0-12.0)
--- NOTE | 2023-09-29 07:10 | XRay Report ---
LEFT FOOT 3 VIEWS CLINICAL HISTORY: Fall. First toe injury. FINDINGS: 3 views of the left foot are compared to study dated 11/27/2022. The skeletal structures are well mineralized. Bandage material overlies the first toe end degrades fine bony detail. No acute fr acture is clearly identified. The joint spaces of the foot appear maintained. There is soft tissue in jury/edema suggested in the first toe. No radiodense foreign body is identified. There is also soft t issue edema in the forefoot. A dorsal heel spur is noted. IMPRESSION: 1. Soft tissue injury/edema in the first toe with no fracture identified. 2. Dorsal heel spur. Electronically signed by: Misael Lopez M.D. 09/29/2023 7:08 AM
[2023-09-29] MEDS: BUDESONIDE 0.5 MG/2 ML VIAL (PULMICORT) INH SCH ×2 (07:17→20:02)
--- NOTE | 2023-09-29 07:23 | CT Scan Report ---
CT SCAN OF THE BRAIN WITHOUT IV CONTRAST CLINICAL HISTORY: Fall. Head injury. COMPARISON STUDY: CT of the brain dated 09/19/2023. TECHNIQUE: Unenhanced axial CT scan of the brain is performed from the vertex to the skull base. A d ose lowering technique was utilized adhering to the principles of ALARA. CT DOSE: 800.63 mGy.cm FINDINGS: Brain parenchyma: The brain parenchyma is normal in appearance. There is no hemorrhage, mass effect, or evidence of acute territorial ischemia by CT criteria. [place]-white matter differentiation is preser nani. No extra-axial fluid collection is seen. Ventricles, sulci, cisterns: Normal in configuration. Intracranial vasculature: The visualized intracranial vasculature at the skull base is normal in appe arance. Calvarium: Unremarkable. Sinuses and mastoids: There is moderate mucosal thickening within the right maxillary antrum. Mild mu cosal thickening is seen within the ethmoid and left maxillary sinuses. There is trace mucosal thicke yovany within the sphenoid sinuses. There is a small left mastoid effusion. The right mastoid air cells are well pneumatized. Orbits: The bony orbits are grossly intact. IMPRESSION: There is no hemorrhage, mass effect, or evidence of acute territorial ischemia by CT cesar valentino. ACT 112: Negative or not required by law. Electronically signed by: Misael Lopez M.D. 09/29/2023 7:22 AM
[2023-09-29] MEDS: INSULIN ASPART PER UNIT CHARGE SC SCH ×4 (08:47→22:33)
[2023-09-29] MEDS: buprenorphine HCL 8 MG SUBL SL SCH ×2 (08:49→22:32)
[2023-09-29] MEDS: NICOTINE 14 MG/24 HR PATCH TD SCH (08:53)
[2023-09-29] MEDS: metOLazone 2.5 MG TABLET PO SCH (08:56)
[2023-09-29] MEDS: ASPIRIN 81 MG ECTAB PO SCH (08:56)
[2023-09-29] MEDS: ATORVASTATIN 40 MG TAB PO SCH (08:56)
[2023-09-29] MEDS: bisacodyL 5 MG TABEC PO SCH (08:57)
[2023-09-29] MEDS: DULoxetine HCL 60 MG CAP PO SCH (08:57)
[2023-09-29] MEDS: FERROUS SULFATE 325 MG TAB PO SCH (08:58)
[2023-09-29] MEDS: FINASTERIDE 5 MG TAB PO SCH (08:58)
[2023-09-29] MEDS: FLUTICASONE/VILANTEROL 100/25MCG 14 PUFFS/INHALER INH SCH (08:59)
[2023-09-29] MEDS: FLUTICASONE PROPIONATE NA SPR 16 GM BTL SCH (08:59)
[2023-09-29] MEDS: ISOSORBIDE DINITRATE 10 MG TAB PO SCH (09:00)
[2023-09-29] MEDS: MAGNESIUM OXIDE 400 MG TAB PO SCH (09:00)
[2023-09-29] MEDS: GABAPENTIN 800 MG TAB PO SCH ×3 (09:00→22:17)
[2023-09-29] MEDS: METOPROLOL SUCC 25MG EXT REL TAB PO SCH ×2 (09:00→22:18)
[2023-09-29] MEDS: FOLIC ACID 1 MG TAB PO SCH (09:00)
[2023-09-29] MEDS: SENNA 8.6 MG TAB PO SCH ×2 (09:01→22:16)
[2023-09-29] MEDS: POTASSIUM CHLORIDE CRTAB 20 MEQ TABCR PO SCH ×4 (09:01→22:32)
[2023-09-29] MEDS: SPIRONOLACTONE 25 MG TAB PO SCH (09:02)
[2023-09-29] MEDS: TAMSULOSIN HCL 0.4 MG CAP PO SCH (09:02)
[2023-09-29] MEDS: TORSEMIDE 10 MG TAB PO SCH (09:03)
[2023-09-29] MEDS: CYCLOBENZAPRINE HCL 10 MG TAB PO PRN ×2 (09:04→23:04)
[2023-09-29] MEDS ORDERED: ACETAMINOPHEN 1,000 MG/100 ML VIAL IV STA ×2 (09:13→21:32)
[2023-09-29] MEDS: FAMOTIDINE 20 MG TAB PO SCH (10:16)
[2023-09-29] MEDS: COUGH DROP (SUGAR FREE) LOZ 24 LOZ/1 BOX BUCCAL PRN (12:29)
--- NOTE | 2023-09-29 13:08 | Hospitalist Progress Note ---
Date of Service September 29, 2023 Assessment & Plan (1) Acute UTI (urinary tract infection): (2) Acute renal failure (ARF): (3) Elevated INR: (4) AMS (altered mental status): Plan Mr. Milner is a 53 year old gentleman with a past medical history significant for chronic diastolic heart failure, CAD/STEMI, prior subdural hematoma/subarachnoid hemorrhage, hypertension, hyperlipidemia, COPD, recurrent PE on Coumadin, DM 2,recurrent UTIs secondary to BPH/chronic urinary retention indwelling Lloyd catheter, chronic anemia, chronic pain on buprenorphine, hx MRSA/VRE who presented on 09/19 with AMS and decreased UOP. Patient was admitted for evaluation and management of MAHAMED in setting of CAUTI. Patient is readmitted multiple times over the course of the last year. When discussing barriers to health care as an outpatient, transportation and patient's habitus are limiting factors, as well as patient's understanding of utilization of health care resources and access to community services. CAUTI--POA Chronic urinary retention indwelling Lloyd catheter Possible sepsis treated and resolved --Blood culture negative Urine culture--mixed isabel Normal lactic acid Completed Levaquin for 5 day course Catheter exchanged while in ED 09/19 Urology signed off -Patient failed previous void trial secondary to habitus -Encouraged patient to follow up with urology in 3-4 weeks for exchange prior to infection setting in Need follow up with Urology on discharge Syncopal episode likely vasovagal in setting of BM Head CT: negative acute abnormality Left great toe injury 2/2 to fall excessive bleeding in setting of supratherapeutic INR will have wound clinic see patient he likely will need seen by podiatry as outpatient Acute metabolic encephalopathy secondary to above: resolved Reported history of falls --CT head:No evidence of acute intracranial pathology. --CXR:Cardiomegaly with no acute cardiopulmonary abnormality identified. Fall precautions PT OT as able Mental status back to baseline No acute issues currently MAHAMED:resolved Cr 4.82>4.2>2.5 >1.0 Avoid nephrotoxic agents as able Monitor renal function Discontinued IV fluids Continue home diuretics Vitamin D Deficiency --Vit D level 9 Started on Q7D 50,000U D2 Hypokalemia Replete electrolytes as needed Fecal retention -KUB:Gaseous distention of the stomach with nonobstructive bowel gas pattern. Moderate to extensive colonic fecal retention. Continue bowel regimen Encouraged to ambulate as able Recurrent PE on coumadin Supratherapeutic INR Received Vit K 5mg Monitor INR INR 3.3 today continue to hold coumadin COPD Ongoing tobacco use disorder Currently no signs of exacerbation Continue home inhalers Chronic pain syndrome On Suboxone Chronic diastolic CHF Monitor volume status Continue diuretics Hyperlipidemia on statin BPH Continue Proscar, Flomax Morbid obesity BMI 60.8 DVT Px: Coumadin CODE STATUS Full Code Dispo: Pt hopeful for discharge tomorrow, will need repeat INR, also wound care consult for L great toe recs for discharge Pt was seen and examined in collaboration with Dr. Wright, please see addendum A total of 42 was spent coordinating, documenting, and providing care for this patient excluding time spent in the performance of separately billed services. This included personally viewing all current laboratories and imaging studies, medication reconciliation, outpatient chart review, and discussion with specialists. Admission and Anticipated Discharge Date Admission Date: September 19, 2023 Supervising Physician Co-Signing Physician Notes Patient is seen and examined at bedside. Patient reports a fall overnight resulting in left great toe injury. He denied any dizziness prior to fall. Imaging studies including CT head, foot x-ray showed no signs of fracture. Continues to report generalized myalgia, sore throat. On exam patient is morbidly obese, no apparent distress, normocephalic atraumatic, EOMI, decreased breath sounds, scattered wheezing S1-S2, normal rate, chronic venous stasis changes on bilateral lower extremities, chronic edema, abdomen soft, nontender, normal bowel sounds, alert, awake, oriented, grossly no focal deficits, left great toe in dressing. Reported syncopal episode, fall. Imaging studies showed no signs of fracture. BioFire negative. Continue local wound care. PT OT prior to discharge. Continue current medications. I personally reviewed the record. Patient is interviewed and examined at bedside. Patient's care is coordinated with Angela Welch PA-C. Please refer to the documentation above for details of patient's presentation and for discussion of other issues. Subjective Patient was seen and examined in 314. Follow-up UTI. Patient had episode early this morning in the bathroom when he was moving his bowels where he feels he passed out, fell off the toilet, hit hit head/nose and had injury to left great toe. He did not feel episode coming on and it occurred after bowel movement. He does not feel he can be discharged like this. He denies f/c/s, chest pain, sob, n/v/d. He is moving bowels and catheter remains in place. Discussed with nurse who was told in report pt requested to go into bathroom alone and the nurse went next door and heard him yelling immediately. Fall was unwitnessed. Review of Systems Review of Systems: All systems reviewed & are unremarkable except as noted in HPI & below Physical Exam Physical Exam: Gen: WD/WN, M, morbidly obese, NAD, A&O x3 HEENT: Normocephalic, atraumatic, conjunctivae moist, sclerae anicteric, mucous membranes moist. Lung: Clear to Auscultation bilaterally, diminished b/l due to body habitus, no wheezes/rales/rhonchi Heart: Regular rate, regular rhythm, no murmurs, rubs, or gallops Abdomen: Soft, NT, ND +BS x 4 Extremities: b/l pedal edema, b/l venous stasis changes, L great toe injury to toenail with bleeding Skin: Warm, no rash, negative turgor. Results & Data Results & Data Vital Signs (Past 12 Hours) Vital Signs Temp Pulse Resp BP BP Pulse Ox O2 Del Method 09/29/23 07:18 70 18 94 Room Air 09/29/23 07:14 36.4 C L 78 16 115/75 95 Room Air 09/29/23 06:15 36.8 C 70 18 126/82 94 Room Air Laboratory Results Short CBC 09/29/23 Range/Units 05:46 WBC 10.95 H (4.8-10.8) K/ul Hgb 11.8 L (14.0-18.0) g/dl Hct 36.9 L (42.0-52.0) % Plt Count 271 (130-400) K/uL BMP 09/29/23 05:46 Sodium 138 Potassium 3.7 Chloride 97 L Carbon Dioxide 37 H BUN 20 Creatinine 0.93 Glucose 173 H Calcium 9.7 I have independently reviewed and interpreted patient's labs including CBC, bmp, pt/inr. Also reviewed and interpreted head CT and foot xr Diagnostic Findings Foot X-Ray 09/29/23 06:26 LEFT FOOT 3 VIEWS CLINICAL HISTORY: Fall. First toe injury. FINDINGS: 3 views of the left foot are compared to study dated 11/27/2022. The skeletal structures are well mineralized. Bandage material overlies the first toe end degrades fine bony detail. No acute fracture is clearly identified. The joint spaces of the foot appear maintained. There is soft tissue injury/edema suggested in the first toe. No radiodense foreign body is identified. There is also soft tissue edema in the forefoot. A dorsal heel spur is noted. IMPRESSION: 1. Soft tissue injury/edema in the first toe with no fracture identified. 2. Dorsal heel spur. Electronically signed by: Misael Lopez M.D. 09/29/2023 7:[address] 09/29/23 06:26 CT SCAN OF THE BRAIN WITHOUT IV CONTRAST CLINICAL HISTORY: Fall. Head injury. COMPARISON STUDY: CT of the brain dated 09/19/2023. TECHNIQUE: Unenhanced axial CT scan of the brain is performed from the vertex to the skull base. A dose lowering technique was utilized adhering to the principles of ALARA. CT DOSE: 800.63 mGy.cm FINDINGS: Brain parenchyma: The brain parenchyma is normal in appearance. There is no hemorrhage, mass effect, or evidence of acute territorial ischemia by CT criteria. [place]-white matter differentiation is preserved. No extra-axial fluid collection is seen. Ventricles, sulci, cisterns: Normal in configuration. Intracranial vasculature: The visualized intracranial vasculature at the skull base is normal in appearance. Calvarium: Unremarkable. Sinuses and mastoids: There is moderate mucosal thickening within the right maxillary antrum. Mild mucosal thickening is seen within the ethmoid and left maxillary sinuses. There is trace mucosal thickening within the sphenoid sinuses. There is a small left mastoid effusion. The right mastoid air cells are well pneumatized. Orbits: The bony orbits are grossly intact. IMPRESSION: There is no hemorrhage, mass effect, or evidence of acute territorial ischemia by CT criteria. ACT 112: Negative or not required by law. Electronically signed by: Misael Lopez M.D. 09/29/2023 7:22 AM Medications Administered Current Inpatient Medications Acetaminophen (Acetaminophen 500 Mg Tab) 1,000 mg PO Q8H PRN PRN Reason: Fever or headache Stop: 10/20/23 02:13 Albuterol (Albuterol Hfa 8 Gm Inhaler) 2 puffs INH Q4 PRN PRN Reason: Dyspnea Stop: 10/20/23 01:01 Albuterol (Albut/Ipratrop 3mg/0.5mg Neb 3 Ml Vial) 3 ml INH TIDR PRN; Protocol PRN Reason: Shortness Of Breath Or Wheezing Stop: 10/20/23 06:59 Aspirin (Aspirin 81 Mg Ectab) 81 mg PO QAM [facility] Stop: 10/20/23 08:59 Last Admin: 09/29/23 08:56 Dose: 81 mg Atorvastatin Calcium (Atorvastatin 40 Mg Tab) 80 mg PO QAM [facility] Stop: 10/20/23 08:59 Last Admin: 09/29/23 08:56 Dose: 80 mg Benzonatate (Benzonatate 100 Mg Capsule) 100 mg PO TID PRN PRN Reason: cough Stop: 10/20/23 01:01 Bisacodyl (Bisacodyl 10 Mg Supp) 10 mg HI DAILY PRN PRN Reason: Constipation Stop: 10/21/23 16:53 Last Admin: 09/22/23 17:39 Dose: 10 mg Bisacodyl (Bisacodyl 5 Mg Tabec) 5 mg PO DAILY [facility] Stop: 10/25/23 11:29 Last Admin: 09/29/23 08:57 Dose: 5 mg Budesonide (Budesonide 0.5 Mg/2 Ml Vial (Pulmicort)) 0.5 mg INH Q12R [facility] Stop: 10/20/23 06:59 Last Admin: 09/29/23 07:17 Dose: 0.5 mg Buprenorphine HCl (Buprenorphine Hcl 8 Mg Subl) 8 mg SL BID [facility] Stop: 10/20/23 08:59 Last Admin: 09/29/23 08:49 Dose: 8 mg Buprenorphine HCl (Buprenorphine Hcl 2 Mg Subl) 4 mg SL DAILY@1400 [facility] Stop: 10/20/23 13:59 Last Admin: 09/28/23 13:34 Dose: 4 mg Cyclobenzaprine HCl (Cyclobenzaprine Hcl 10 Mg Tab) 10 mg PO BID PRN PRN Reason: Muscle Spasm Stop: 10/20/23 01:01 Last Admin: 09/29/23 09:04 Dose: 10 mg Dextrose (Dextrose 50% 50 Ml Syringe) 25 - 50 ml IV UD PRN; Protocol PRN Reason: Hypoglycemia Protocol Stop: 10/20/23 09:38 Docusate Sodium (Docusate Sodium 100 Mg Cap) 100 mg PO BID PRN PRN Reason: Constipation Stop: 10/20/23 01:01 Last Admin: 09/22/23 20:28 Dose: 100 mg Duloxetine HCl (Duloxetine Hcl 60 Mg Cap) 60 mg PO DAILY [facility] Stop: 10/20/23 08:59 Last Admin: 09/29/23 08:57 Dose: 60 mg Ergocalciferol (Ergocalciferol 50,000 Units 1250 Mcg Cap) 50,000 units PO Q7D [facility] Stop: 10/26/23 08:59 Last Admin: 09/26/23 09:35 Dose: 50,000 units Famotidine (Famotidine 20 Mg Tab) 20 mg PO DAILY [facility] Stop: 10/20/23 08:59 Last Admin: 09/29/23 10:16 Dose: 20 mg Ferrous Sulfate (Ferrous Sulfate 325 Mg Tab) 325 mg PO QAM [facility] Stop: 10/20/23 08:59 Last Admin: 09/29/23 08:58 Dose: 325 mg Finasteride (Finasteride 5 Mg Tab) 5 mg PO QAM [facility] Stop: 10/20/23 08:59 Last Admin: 09/29/23 08:58 Dose: 5 mg Fluticasone Propionate (Fluticasone Propionate Na Spr 16 Gm Btl) 2 sprays NA DAILY [facility] Stop: 10/20/23 08:59 Last Admin: 09/29/23 08:59 Dose: 2 sprays Fluticasone/Vilanterol (Fluticasone/Vilanterol 100/25mcg 14 Puffs/Inhaler) 1 puffs INH DAILY [facility] Stop: 10/20/23 08:59 Last Admin: 09/29/23 08:59 Dose: 1 puffs Folic Acid (Folic Acid 1 Mg Tab) 1 mg PO QAM [facility] Stop: 10/20/23 08:59 Last Admin: 09/29/23 09:00 Dose: 1 mg Gabapentin (Gabapentin 800 Mg Tab) 800 mg PO TID [facility] Stop: 10/20/23 08:59 Last Admin: 09/29/23 09:00 Dose: 800 mg Glucagon (Glucagon For Inj 1 Mg Vial) 1 mg SQ UD PRN; Protocol PRN Reason: Hypoglycemia Protocol Stop: 10/20/23 09:38 Glucose (Glucose 10 Tab/Tube) 4 - 8 tab PO UD PRN; Protocol PRN Reason: Hypoglycemia Treatment Stop: 10/20/23 09:38 Glucose (Glucose 40% Gel 15 Gm Tube) 15 - 30 gm PO UD PRN; Protocol PRN Reason: Hypoglycemia Protocol Stop: 10/20/23 09:38 Hydroxyzine HCl (Hydroxyzine Hcl 25 Mg Tab) 25 mg PO QID PRN PRN Reason: Anxiety Stop: 10/20/23 01:01 Last Admin: 09/26/23 08:32 Dose: 25 mg Promethazine HCl 12.5 mg/ (Sodium Chloride) 50.5 mls @ 202 mls/hr IV Q6H PRN PRN Reason: Nausea And Vomiting Stop: 10/20/23 19:54 Last Infusion: 09/22/23 09:26 Dose: Infused Insulin Aspart (Insulin Aspart Per Unit Charge) 0 units SC [facility] Stop: 10/20/23 11:29 Last Admin: 09/29/23 12:30 Dose: 5 units Insulin Glargine (Lantus Per Unit Charge) 50 units SC HS [facility] Stop: 10/20/23 20:59 Last Admin: 09/28/23 20:53 Dose: 50 units Isosorbide Dinitrate (Isosorbide Dinitrate 10 Mg Tab) 30 mg PO DAILY [facility] Stop: 10/20/23 08:59 Last Admin: 09/29/23 09:00 Dose: 30 mg Magnesium Oxide (Magnesium Oxide 400 Mg Tab) 400 mg PO DAILY [facility] Stop: 10/20/23 08:59 Last Admin: 09/29/23 09:00 Dose: 400 mg Menthol (Cough Drop (Sugar Free) Fernie 24 Fernie/1 Box) 1 fernie BUCCAL Q2H PRN PRN Reason: Sore Throat Stop: 10/29/23 09:12 Last Admin: 09/29/23 12:29 Dose: 1 fernie Metolazone (Metolazone 2.5 Mg Tablet) 2.5 mg PO MoWeFr@0830 [facility] Stop: 10/20/23 08:29 Last Admin: 09/29/23 08:56 Dose: 2.5 mg Metoprolol Succinate (Metoprolol Succ 25mg Ext Rel Tab) 75 mg PO BID [facility] Stop: 10/20/23 08:59 Last Admin: 09/29/23 09:00 Dose: 75 mg Miconazole Nitrate (Miconazole Nitrate Powder 85 Gm) 1 appln EXT Q6H [facility] Stop: 10/20/23 02:44 Last Admin: 09/29/23 05:52 Dose: Not Given Miscellaneous (Order Awaiting Action: Urea [Ureacin-20] 20 % Cream) 1 each N/A QS [facility] Stop: 10/20/23 07:59 Last Admin: 09/29/23 08:53 Dose: Not Given Miscellaneous (Carbohydrates For Hypoglycemia ) 15 - 30 gm PO UD PRN PRN Reason: Hypoglycemia Protocol Stop: 10/20/23 09:38 Miscellaneous (Remove Nicoderm Patch) 1 each N/A DAILY@0859 [facility] Stop: 10/23/23 08:58 Last Admin: 09/29/23 08:48 Dose: 1 each Nicotine (Nicotine 14 Mg/24 Hr Patch) 14 mg TD QAM [facility] Stop: 10/23/23 08:59 Last Admin: 09/29/23 08:53 Dose: 14 mg Nitroglycerin (Nitroglycerin Sl 0.4 Mg/Tab Tab) 0.4 mg SL Q5M PRN PRN Reason: CHEST PAIN Stop: 10/20/23 01:01 Ondansetron HCl (Ondansetron 4 Mg Od Tab) 4 mg PO Q8H PRN PRN Reason: Nausea And Vomiting Stop: 10/20/23 01:59 Last Admin: 09/21/23 04:09 Dose: 4 mg Ondansetron HCl (Ondansetron Inj 2 Mg/Ml 2 Ml Vial) 4 mg IV Q6H PRN PRN Reason: Nausea And Vomiting Stop: 10/21/23 12:44 Last Admin: 09/22/23 12:13 Dose: 4 mg Pantoprazole Sodium (Pantoprazole 40 Mg Tab) 40 mg PO DAILYBB [facility] Stop: 10/20/23 06:29 Last Admin: 09/29/23 05:49 Dose: 40 mg Polyethylene Glycol (Polyethylene (Miralax) 17 Gm Pack) 17 gm PO Q6H [facility] Stop: 10/25/23 12:59 Last Admin: 09/29/23 12:34 Dose: Not Given Potassium Chloride (Potassium Chloride Crtab 20 Meq Tabcr) 20 meq PO QID [facility] Stop: 10/21/23 12:59 Last Admin: 09/29/23 12:30 Dose: 20 meq Sennosides (Senna 8.6 Mg Tab) 8.6 mg PO BID [facility] Stop: 10/25/23 20:59 Last Admin: 09/29/23 09:01 Dose: 8.6 mg Spironolactone (Spironolactone 25 Mg Tab) 25 mg PO QAM [facility] Stop: 10/20/23 08:59 Last Admin: 09/29/23 09:02 Dose: 25 mg Tamsulosin HCl (Tamsulosin Hcl 0.4 Mg Cap) 0.8 mg PO QAM [facility] Stop: 10/20/23 08:59 Last Admin: 09/29/23 09:02 Dose: 0.8 mg Torsemide (Torsemide 10 Mg Tab) 50 mg PO DAILY [facility] Stop: 10/20/23 08:59 Last Admin: 09/29/23 09:03 Dose: 50 mg Warfarin Sodium (Warfarin Sod 5 Mg Tab) 5 mg PO DAILY@1600 [facility] Stop: 10/26/23 15:59 Last Admin: 09/26/23 17:31 Dose: 5 mg (2) Acute renal failure (ARF) Acute renal failure type: unspecified Qualified Code(s): N17.9 - Acute kidney failure, unspecified (4) AMS (altered mental status) Altered mental status type: unspecified Qualified Code(s): R41.82 - Altered mental status, unspecified
[2023-09-29] MEDS: buprenorphine HCL 2 MG SUBL SL SCH (13:28)
[2023-09-29] MEDS: LANTUS PER UNIT CHARGE SC SCH (22:33)
[2023-09-30] MEDS: POLYETHYLENE (MIRALAX) 17 GM PACK PO SCH ×4 (00:05→17:06)
[2023-09-30] MEDS: PANTOprazole 40 MG TAB PO SCH (05:45)
[2023-09-30] MEDS: MICONAZOLE NITRATE POWDER 85 GM EXT SCH ×4 (05:46→23:22)
[2023-09-30 06:43] LABS: BUN Creatinine Ratio 18.2 (10-20); Calcium 9.5 mg/dl (8.6-10.3); Creatinine Clr Calc Pharmacy 156.1 ml/min; Est GFR (African American) 100.4 ml/min; Est GFR (Non-African American) 86.6 ml/min; Potassium 3.4 mmol/L (3.5-5.1)
[2023-09-30 07:00] LABS: INR 2.2 (0.9-1.1); Prothrombin Time 22.6 Seconds (9.0-12.0)
[2023-09-30] MEDS ORDERED: POTASSIUM CHLORIDE CRTAB 20 MEQ TABCR PO STA (07:18)
[2023-09-30] MEDS: BUDESONIDE 0.5 MG/2 ML VIAL (PULMICORT) INH SCH ×2 (07:34→18:52)
[2023-09-30] MEDS: FAMOTIDINE 20 MG TAB PO SCH (07:53)
[2023-09-30] MEDS: CYCLOBENZAPRINE HCL 10 MG TAB PO PRN ×2 (07:53→20:47)
[2023-09-30] MEDS: buprenorphine HCL 8 MG SUBL SL SCH ×2 (07:53→20:46)
[2023-09-30] MEDS: ASPIRIN 81 MG ECTAB PO SCH (07:54)
[2023-09-30] MEDS: SPIRONOLACTONE 25 MG TAB PO SCH (07:54)
[2023-09-30] MEDS: MAGNESIUM OXIDE 400 MG TAB PO SCH (07:54)
[2023-09-30] MEDS: DOCUSATE SODIUM 100 MG CAP PO PRN (07:54)
[2023-09-30] MEDS: TORSEMIDE 10 MG TAB PO SCH (07:55)
[2023-09-30] MEDS: FOLIC ACID 1 MG TAB PO SCH (07:55)
[2023-09-30] MEDS: DULoxetine HCL 60 MG CAP PO SCH (07:55)
[2023-09-30] MEDS: ATORVASTATIN 40 MG TAB PO SCH (07:55)
[2023-09-30] MEDS: FERROUS SULFATE 325 MG TAB PO SCH (07:56)
[2023-09-30] MEDS: GABAPENTIN 800 MG TAB PO SCH ×3 (07:56→20:51)
[2023-09-30] MEDS: TAMSULOSIN HCL 0.4 MG CAP PO SCH (07:56)
[2023-09-30] MEDS: ISOSORBIDE DINITRATE 10 MG TAB PO SCH (07:56)
[2023-09-30] MEDS: SENNA 8.6 MG TAB PO SCH ×2 (07:57→20:50)
[2023-09-30] MEDS: METOPROLOL SUCC 25MG EXT REL TAB PO SCH ×2 (07:57→20:55)
[2023-09-30] MEDS: FINASTERIDE 5 MG TAB PO SCH (07:57)
[2023-09-30] MEDS: NICOTINE 14 MG/24 HR PATCH TD SCH (07:58)
[2023-09-30] MEDS: FLUTICASONE PROPIONATE NA SPR 16 GM BTL SCH (08:00)
[2023-09-30] MEDS: FLUTICASONE/VILANTEROL 100/25MCG 14 PUFFS/INHALER INH SCH (08:00)
[2023-09-30] MEDS: INSULIN ASPART PER UNIT CHARGE SC SCH ×4 (08:02→21:03)
[2023-09-30] MEDS: POTASSIUM CHLORIDE CRTAB 20 MEQ TABCR PO SCH ×4 (08:05→20:47)
[2023-09-30] MEDS: bisacodyL 5 MG TABEC PO SCH (08:05)
[2023-09-30] MEDS ORDERED: ACETAMINOPHEN 1,000 MG/100 ML VIAL IV STA ×2 (08:45→21:15)
--- NOTE | 2023-09-30 13:03 | Hospitalist Progress Note ---
Date of Service September 30, 2023 Assessment & Plan (1) Acute UTI (urinary tract infection): (2) Acute renal failure (ARF): (3) Elevated INR: (4) AMS (altered mental status): Plan Mr. Milner is a 53 year old gentleman with a past medical history significant for chronic diastolic heart failure, CAD/STEMI, prior subdural hematoma/subarachnoid hemorrhage, hypertension, hyperlipidemia, COPD, recurrent PE on Coumadin, DM 2,recurrent UTIs secondary to BPH/chronic urinary retention indwelling Lloyd catheter, chronic anemia, chronic pain on buprenorphine, hx MRSA/VRE who presented on 09/19 with AMS and decreased UOP. Patient was admitted for evaluation and management of MAHAMED in setting of CAUTI. Patient is readmitted multiple times over the course of the last year. When discussing barriers to health care as an outpatient, transportation and patient's habitus are limiting factors, as well as patient's understanding of utilization of health care resources and access to community services. CAUTI--POA Chronic urinary retention indwelling Lloyd catheter Possible sepsis treated and resolved --Blood culture negative Urine culture--mixed isabel Normal lactic acid Completed Levaquin for 5 day course Catheter exchanged while in ED 09/19 Urology signed off -Patient failed previous void trial secondary to habitus -Encouraged patient to follow up with urology in 3-4 weeks for exchange prior to infection setting in Need follow up with Urology on discharge Syncopal episode likely vasovagal in setting of BM Head CT: negative acute abnormality interrogate loop recorder per pt request Left great toe injury 2/2 to fall LLE pain excessive bleeding in setting of supratherapeutic INR will have wound clinic see patient he likely will need seen by podiatry as outpatient requesting PT - will try to have PT eval today for dispo Acute metabolic encephalopathy secondary to above: resolved Reported history of falls --CT head:No evidence of acute intracranial pathology. --CXR:Cardiomegaly with no acute cardiopulmonary abnormality identified. Fall precautions PT OT as able Mental status back to baseline No acute issues currently MAHAMED:resolved Cr 4.82>4.2>2.5 >1.0 Avoid nephrotoxic agents as able Monitor renal function Discontinued IV fluids Continue home diuretics Vitamin D Deficiency --Vit D level 9 Started on Q7D 50,000U D2 Hypokalemia Replete electrolytes as needed Fecal retention -KUB:Gaseous distention of the stomach with nonobstructive bowel gas pattern. Moderate to extensive colonic fecal retention. Continue bowel regimen Encouraged to ambulate as able Recurrent PE on coumadin Supratherapeutic INR Received Vit K 5mg Monitor INR INR 2.2 resume coumadin at 2mg daily, he will f/u with [facility] pharmacy at d/c COPD Ongoing tobacco use disorder Currently no signs of exacerbation Continue home inhalers Chronic pain syndrome On Suboxone Chronic diastolic CHF Monitor volume status Continue diuretics Hyperlipidemia on statin BPH Continue Proscar, Flomax Morbid obesity BMI 60.8 DVT Px: Coumadin CODE STATUS Full Code Dispo: medically stable for d/c, PT to eval due to pt stating he cannot walk b/c of pain from fall. Also loop recorder interrogation if that is available in house. He needs to be discharged once PT eval complete. Pt was seen and examined in collaboration with Dr. Wright, please see addendum A total of 45 was spent coordinating, documenting, and providing care for this patient excluding time spent in the performance of separately billed services. This included personally viewing all current laboratories and imaging studies, medication reconciliation, outpatient chart review, and discussion with specialists. Admission and Anticipated Discharge Date Admission Date: September 19, 2023 Supervising Physician Co-Signing Physician Notes Patient is seen and examined at bedside. Reports having pain at site of great toe due to fall and difficulty with ambulation secondary to the same. Advised PT evaluation. PT attempted to see the patient, patient refused. On exam patient is morbidly obese, no apparent distress, normocephalic atraumatic, EOMI, decreased breath sounds, scattered wheezing S1-S2, normal rate, chronic venous stasis changes on bilateral lower extremities, chronic edema, abdomen soft, nontender, normal bowel sounds, alert, awake, oriented, grossly no focal deficits, left great toe in dressing. Clinically stable for discharge. Patient has been refusing PT eval today. Will request PT evaluation again tomorrow. Consider discharging home likely tomorrow. Continue local wound care. PT OT prior to discharge. Other chronic conditions stable. I personally reviewed the record. Patient is interviewed and examined at bedside. Patient's care is coordinated with Angela Welch PA-C. Please refer to the documentation above for details of patient's presentation and for discussion of other issues. Subjective Patient was seen and examined in 314. Follow-up UTI. Pt feel yesterday and hit his left big toe. Wound care saw him and placed vaseline dressing and dry gauze. He is now stating it is difficult for him to walk and wants to see PT. He also states he has a loop recorder and b/c he passed out twice during stay this should be evaluated. He doesn't feel he can go home today. Denies f/c/s, chest pain, sob, n/v. Last BM yesterday. Lloyd cath intact. Review of Systems Review of Systems: All systems reviewed & are unremarkable except as noted in HPI & below Physical Exam Physical Exam: Gen: WD/WN, M, morbidly obese, NAD, A&O x3 HEENT: Normocephalic, atraumatic, conjunctivae moist, sclerae anicteric, mucous membranes moist. Lung: Clear to Auscultation bilaterally, diminished b/l due to body habitus, no wheezes/rales/rhonchi Heart: Regular rate, regular rhythm, no murmurs, rubs, or gallops Abdomen: Soft, NT, ND +BS x 4 Extremities: b/l pedal edema, b/l venous stasis changes, L great toe injury to toenail dressing in place cdi Skin: Warm, no rash, negative turgor. Results & Data Results & Data Vital Signs (Past 12 Hours) Vital Signs Temp Pulse Resp BP Pulse Ox O2 Del Method 09/30/23 08:14 Room Air 09/30/23 07:48 36.6 C 73 18 109/70 94 Room Air 09/30/23 07:35 71 14 93 Room Air Laboratory Results BMP 09/30/23 05:49 Sodium 136 Potassium 3.4 L Chloride 94 L Carbon Dioxide 38 H BUN 18 Creatinine 0.99 Glucose 222 H Calcium 9.5 I have independently reviewed and interpreted patient's labs including bmp. Medications Administered Current Inpatient Medications Acetaminophen (Acetaminophen 500 Mg Tab) 1,000 mg PO Q8H PRN PRN Reason: Fever or headache Stop: 10/20/23 02:13 Albuterol (Albuterol Hfa 8 Gm Inhaler) 2 puffs INH Q4 PRN PRN Reason: Dyspnea Stop: 10/20/23 01:01 Albuterol (Albut/Ipratrop 3mg/0.5mg Neb 3 Ml Vial) 3 ml INH TIDR PRN; Protocol PRN Reason: Shortness Of Breath Or Wheezing Stop: 10/20/23 06:59 Aspirin (Aspirin 81 Mg Ectab) 81 mg PO QAM [facility] Stop: 10/20/23 08:59 Last Admin: 09/30/23 07:54 Dose: 81 mg Atorvastatin Calcium (Atorvastatin 40 Mg Tab) 80 mg PO QAM [facility] Stop: 10/20/23 08:59 Last Admin: 09/30/23 07:55 Dose: 80 mg Benzonatate (Benzonatate 100 Mg Capsule) 100 mg PO TID PRN PRN Reason: cough Stop: 10/20/23 01:01 Last Admin: 09/30/23 07:54 Dose: 100 mg Bisacodyl (Bisacodyl 10 Mg Supp) 10 mg ME DAILY PRN PRN Reason: Constipation Stop: 10/21/23 16:53 Last Admin: 09/22/23 17:39 Dose: 10 mg Bisacodyl (Bisacodyl 5 Mg Tabec) 5 mg PO DAILY [facility] Stop: 10/25/23 11:29 Last Admin: 09/30/23 08:05 Dose: 5 mg Budesonide (Budesonide 0.5 Mg/2 Ml Vial (Pulmicort)) 0.5 mg INH Q12R [facility] Stop: 10/20/23 06:59 Last Admin: 09/30/23 07:34 Dose: 0.5 mg Buprenorphine HCl (Buprenorphine Hcl 8 Mg Subl) 8 mg SL BID [facility] Stop: 10/20/23 08:59 Last Admin: 09/30/23 07:53 Dose: 8 mg Buprenorphine HCl (Buprenorphine Hcl 2 Mg Subl) 4 mg SL DAILY@1400 [facility] Stop: 10/20/23 13:59 Last Admin: 09/29/23 13:28 Dose: 4 mg Cyclobenzaprine HCl (Cyclobenzaprine Hcl 10 Mg Tab) 10 mg PO BID PRN PRN Reason: Muscle Spasm Stop: 10/20/23 01:01 Last Admin: 09/30/23 07:53 Dose: 10 mg Dextrose (Dextrose 50% 50 Ml Syringe) 25 - 50 ml IV UD PRN; Protocol PRN Reason: Hypoglycemia Protocol Stop: 10/20/23 09:38 Docusate Sodium (Docusate Sodium 100 Mg Cap) 100 mg PO BID PRN PRN Reason: Constipation Stop: 10/20/23 01:01 Last Admin: 09/30/23 07:54 Dose: 100 mg Duloxetine HCl (Duloxetine Hcl 60 Mg Cap) 60 mg PO DAILY [facility] Stop: 10/20/23 08:59 Last Admin: 09/30/23 07:55 Dose: 60 mg Ergocalciferol (Ergocalciferol 50,000 Units 1250 Mcg Cap) 50,000 units PO Q7D [facility] Stop: 10/26/23 08:59 Last Admin: 09/26/23 09:35 Dose: 50,000 units Famotidine (Famotidine 20 Mg Tab) 20 mg PO DAILY [facility] Stop: 10/20/23 08:59 Last Admin: 09/30/23 07:53 Dose: 20 mg Ferrous Sulfate (Ferrous Sulfate 325 Mg Tab) 325 mg PO QAM [facility] Stop: 10/20/23 08:59 Last Admin: 09/30/23 07:56 Dose: 325 mg Finasteride (Finasteride 5 Mg Tab) 5 mg PO QAM [facility] Stop: 10/20/23 08:59 Last Admin: 09/30/23 07:57 Dose: 5 mg Fluticasone Propionate (Fluticasone Propionate Na Spr 16 Gm Btl) 2 sprays NA DAILY [facility] Stop: 10/20/23 08:59 Last Admin: 09/30/23 08:00 Dose: 2 sprays Fluticasone/Vilanterol (Fluticasone/Vilanterol 100/25mcg 14 Puffs/Inhaler) 1 puffs INH DAILY [facility] Stop: 10/20/23 08:59 Last Admin: 09/30/23 08:00 Dose: 1 puffs Folic Acid (Folic Acid 1 Mg Tab) 1 mg PO QAM [facility] Stop: 10/20/23 08:59 Last Admin: 09/30/23 07:55 Dose: 1 mg Gabapentin (Gabapentin 800 Mg Tab) 800 mg PO TID [facility] Stop: 10/20/23 08:59 Last Admin: 09/30/23 07:56 Dose: 800 mg Glucagon (Glucagon For Inj 1 Mg Vial) 1 mg SQ UD PRN; Protocol PRN Reason: Hypoglycemia Protocol Stop: 10/20/23 09:38 Glucose (Glucose 10 Tab/Tube) 4 - 8 tab PO UD PRN; Protocol PRN Reason: Hypoglycemia Treatment Stop: 10/20/23 09:38 Glucose (Glucose 40% Gel 15 Gm Tube) 15 - 30 gm PO UD PRN; Protocol PRN Reason: Hypoglycemia Protocol Stop: 10/20/23 09:38 Hydroxyzine HCl (Hydroxyzine Hcl 25 Mg Tab) 25 mg PO QID PRN PRN Reason: Anxiety Stop: 10/20/23 01:01 Last Admin: 09/26/23 08:32 Dose: 25 mg Promethazine HCl 12.5 mg/ (Sodium Chloride) 50.5 mls @ 202 mls/hr IV Q6H PRN PRN Reason: Nausea And Vomiting Stop: 10/20/23 19:54 Last Infusion: 09/22/23 09:26 Dose: Infused Insulin Aspart (Insulin Aspart Per Unit Charge) 0 units SC ACHS [facility] Stop: 10/20/23 11:29 Last Admin: 09/30/23 11:58 Dose: 8 units Insulin Glargine (Lantus Per Unit Charge) 50 units SC HS [facility] Stop: 10/20/23 20:59 Last Admin: 09/29/23 22:33 Dose: 50 units Isosorbide Dinitrate (Isosorbide Dinitrate 10 Mg Tab) 30 mg PO DAILY [facility] Stop: 10/20/23 08:59 Last Admin: 09/30/23 07:56 Dose: 30 mg Magnesium Oxide (Magnesium Oxide 400 Mg Tab) 400 mg PO DAILY [facility] Stop: 10/20/23 08:59 Last Admin: 09/30/23 07:54 Dose: 400 mg Menthol (Cough Drop (Sugar Free) Fernie 24 Fernie/1 Box) 1 fernie BUCCAL Q2H PRN PRN Reason: Sore Throat Stop: 10/29/23 09:12 Last Admin: 09/29/23 12:29 Dose: 1 fernie Metolazone (Metolazone 2.5 Mg Tablet) 2.5 mg PO MoWeFr@0830 [facility] Stop: 10/20/23 08:29 Last Admin: 09/29/23 08:56 Dose: 2.5 mg Metoprolol Succinate (Metoprolol Succ 25mg Ext Rel Tab) 75 mg PO BID [facility] Stop: 10/20/23 08:59 Last Admin: 09/30/23 07:57 Dose: 75 mg Miconazole Nitrate (Miconazole Nitrate Powder 85 Gm) 1 appln EXT Q6H [facility] Stop: 10/20/23 02:44 Last Admin: 09/30/23 12:01 Dose: Not Given Miscellaneous (Order Awaiting Action: Urea [Ureacin-20] 20 % Cream) 1 each N/A QS [facility] Stop: 10/20/23 07:59 Last Admin: 09/30/23 07:25 Dose: Not Given Miscellaneous (Carbohydrates For Hypoglycemia ) 15 - 30 gm PO UD PRN PRN Reason: Hypoglycemia Protocol Stop: 10/20/23 09:38 Miscellaneous (Remove Nicoderm Patch) 1 each N/A DAILY@0859 [facility] Stop: 10/23/23 08:58 Last Admin: 09/30/23 07:58 Dose: 1 each Nicotine (Nicotine 14 Mg/24 Hr Patch) 14 mg TD QAM [facility] Stop: 10/23/23 08:59 Last Admin: 09/30/23 07:58 Dose: 14 mg Nitroglycerin (Nitroglycerin Sl 0.4 Mg/Tab Tab) 0.4 mg SL Q5M PRN PRN Reason: CHEST PAIN Stop: 10/20/23 01:01 Ondansetron HCl (Ondansetron 4 Mg Od Tab) 4 mg PO Q8H PRN PRN Reason: Nausea And Vomiting Stop: 10/20/23 01:59 Last Admin: 09/21/23 04:09 Dose: 4 mg Ondansetron HCl (Ondansetron Inj 2 Mg/Ml 2 Ml Vial) 4 mg IV Q6H PRN PRN Reason: Nausea And Vomiting Stop: 10/21/23 12:44 Last Admin: 09/22/23 12:13 Dose: 4 mg Pantoprazole Sodium (Pantoprazole 40 Mg Tab) 40 mg PO DAILYBB [facility] Stop: 10/20/23 06:29 Last Admin: 09/30/23 05:45 Dose: 40 mg Polyethylene Glycol (Polyethylene (Miralax) 17 Gm Pack) 17 gm PO Q6H [facility] Stop: 10/25/23 12:59 Last Admin: 09/30/23 12:01 Dose: Not Given Potassium Chloride (Potassium Chloride Crtab 20 Meq Tabcr) 20 meq PO QID [facility] Stop: 10/21/23 12:59 Last Admin: 09/30/23 08:05 Dose: 20 meq Sennosides (Senna 8.6 Mg Tab) 8.6 mg PO BID [facility] Stop: 10/25/23 20:59 Last Admin: 09/30/23 07:57 Dose: 8.6 mg Spironolactone (Spironolactone 25 Mg Tab) 25 mg PO QAM [facility] Stop: 10/20/23 08:59 Last Admin: 09/30/23 07:54 Dose: 25 mg Tamsulosin HCl (Tamsulosin Hcl 0.4 Mg Cap) 0.8 mg PO QAM [facility] Stop: 10/20/23 08:59 Last Admin: 09/30/23 07:56 Dose: 0.8 mg Torsemide (Torsemide 10 Mg Tab) 50 mg PO DAILY [facility] Stop: 10/20/23 08:59 Last Admin: 09/30/23 07:55 Dose: 50 mg Warfarin Sodium (Warfarin Sod 2 Mg Tab) 2 mg PO DAILY@1600 [facility] Stop: 10/30/23 15:59 (2) Acute renal failure (ARF) Acute renal failure type: unspecified Qualified Code(s): N17.9 - Acute kidney failure, unspecified (4) AMS (altered mental status) Altered mental status type: unspecified Qualified Code(s): R41.82 - Altered mental status, unspecified
[2023-09-30] MEDS: buprenorphine HCL 2 MG SUBL SL SCH (14:06)
[2023-09-30] MEDS ORDERED: WARFARIN SOD 2 MG TAB PO SCH (16:00)
[2023-09-30] MEDS: LANTUS PER UNIT CHARGE SC SCH (21:02)
[2023-10-01] MEDS: POLYETHYLENE (MIRALAX) 17 GM PACK PO SCH ×4 (00:08→16:53)
[2023-10-01] MEDS: MICONAZOLE NITRATE POWDER 85 GM EXT SCH ×4 (05:09→23:35)
[2023-10-01] MEDS: PANTOprazole 40 MG TAB PO SCH (05:43)
[2023-10-01 06:41] LABS: INR 1.6 (0.9-1.1); Prothrombin Time 17.1 Seconds (9.0-12.0)
[2023-10-01] MEDS: BUDESONIDE 0.5 MG/2 ML VIAL (PULMICORT) INH SCH ×2 (07:38→19:20)
[2023-10-01] MEDS: INSULIN ASPART PER UNIT CHARGE SC SCH ×4 (08:32→21:42)
[2023-10-01] MEDS: FAMOTIDINE 20 MG TAB PO SCH (08:36)
[2023-10-01] MEDS: bisacodyL 5 MG TABEC PO SCH (08:36)
[2023-10-01] MEDS: buprenorphine HCL 8 MG SUBL SL SCH ×2 (08:36→22:02)
[2023-10-01] MEDS: DOCUSATE SODIUM 100 MG CAP PO PRN (08:36)
[2023-10-01] MEDS: ASPIRIN 81 MG ECTAB PO SCH (08:37)
[2023-10-01] MEDS: FOLIC ACID 1 MG TAB PO SCH (08:37)
[2023-10-01] MEDS: ATORVASTATIN 40 MG TAB PO SCH (08:37)
[2023-10-01] MEDS: TORSEMIDE 10 MG TAB PO SCH (08:37)
[2023-10-01] MEDS: POTASSIUM CHLORIDE CRTAB 20 MEQ TABCR PO SCH ×4 (08:37→22:01)
[2023-10-01] MEDS: METOPROLOL SUCC 25MG EXT REL TAB PO SCH ×2 (08:37→22:01)
[2023-10-01] MEDS: TAMSULOSIN HCL 0.4 MG CAP PO SCH (08:37)
[2023-10-01] MEDS: FERROUS SULFATE 325 MG TAB PO SCH (08:37)
[2023-10-01] MEDS: SPIRONOLACTONE 25 MG TAB PO SCH (08:37)
[2023-10-01] MEDS: ISOSORBIDE DINITRATE 10 MG TAB PO SCH (08:37)
[2023-10-01] MEDS: MAGNESIUM OXIDE 400 MG TAB PO SCH (08:38)
[2023-10-01] MEDS: NICOTINE 14 MG/24 HR PATCH TD SCH (08:38)
[2023-10-01] MEDS: GABAPENTIN 800 MG TAB PO SCH ×3 (08:38→22:01)
[2023-10-01] MEDS: DULoxetine HCL 60 MG CAP PO SCH (08:38)
[2023-10-01] MEDS: SENNA 8.6 MG TAB PO SCH ×2 (08:38→21:46)
[2023-10-01] MEDS: FINASTERIDE 5 MG TAB PO SCH (08:40)
[2023-10-01] MEDS: FLUTICASONE PROPIONATE NA SPR 16 GM BTL SCH (08:40)
[2023-10-01] MEDS: metOLazone 2.5 MG TABLET PO SCH (08:40)
[2023-10-01] MEDS: FLUTICASONE/VILANTEROL 100/25MCG 14 PUFFS/INHALER INH SCH ×2 (08:40→13:00)
--- NOTE | 2023-10-01 10:36 | XRay Report ---
XR knee LT 3V CLINICAL HISTORY: Knee Pain, S/P Fall COMPARISON STUDY: Left knee 06/13/2021. FINDINGS: Rotated study. No definite fracture or dislocation within the left knee. No significant kne e effusion. Diffuse soft tissue edema. No radiopaque foreign bodies. IMPRESSION: 1. No fracture or dislocation within the left knee. 2. Diffuse soft tissue edema. ACT 112: Negative or not required by law. Electronically signed by: Vidal Keller M.D. 10/01/2023 10:35 AM
[2023-10-01] MEDS: ACETAMINOPHEN 1,000 MG/100 ML VIAL IV PRN (12:13)
[2023-10-01] MEDS: buprenorphine HCL 2 MG SUBL SL SCH (14:27)
--- NOTE | 2023-10-01 15:07 | Hospitalist Progress Note ---
Date of Service October 01, 2023 Assessment & Plan (1) Acute UTI (urinary tract infection): (2) Acute renal failure (ARF): (3) Elevated INR: (4) AMS (altered mental status): Plan Mr. Milner is a 53 year old gentleman with a past medical history significant for chronic diastolic heart failure, CAD/STEMI, prior subdural hematoma/subarachnoid hemorrhage, hypertension, hyperlipidemia, COPD, recurrent PE on Coumadin, DM 2,recurrent UTIs secondary to BPH/chronic urinary retention indwelling Lloyd catheter, chronic anemia, chronic pain on buprenorphine, hx MRSA/VRE who presented on 09/19 with AMS and decreased UOP. Patient was admitted for evaluation and management of MAHAMED in setting of CAUTI. Patient is readmitted multiple times over the course of the last year. When discussing barriers to health care as an outpatient, transportation and patient's habitus are limiting factors, as well as patient's understanding of utilization of health care resources and access to community services. CAUTI--POA Chronic urinary retention indwelling Lloyd catheter Possible sepsis treated and resolved --Blood culture negative Urine culture--mixed isabel Normal lactic acid Completed Levaquin for 5 day course Catheter exchanged while in ED 09/19 Urology signed off -Patient failed previous void trial secondary to habitus -Encouraged patient to follow up with urology in 3-4 weeks for exchange prior to infection setting in Need follow up with Urology on discharge PT OT recommends rehab Case management to help with discharge planning Syncopal episode likely vasovagal in setting of BM Head CT: negative acute abnormality Interrogate loop recorder per pt request Left great toe injury 2/2 to fall LLE pain Knee X ray:No fracture or dislocation within the left knee. Diffuse soft tissue edema. Foot X ray:Soft tissue injury/edema in the first toe with no fracture identified. Dorsal heel spur. Excessive bleeding in setting of supratherapeutic INR Continue wound care Fall precautions Continue PT OT Acute metabolic encephalopathy secondary to above: resolved Reported history of falls --CT head:No evidence of acute intracranial pathology. --CXR:Cardiomegaly with no acute cardiopulmonary abnormality identified. Fall precautions PT OT as able Mental status back to baseline No acute issues currently MAHAMED:resolved Cr 4.82>4.2>2.5 >0.9 Avoid nephrotoxic agents as able Monitor renal function Discontinued IV fluids Continue home diuretics Vitamin D Deficiency --Vit D level 9 Started on Q7D 50,000U D2 Hypokalemia Replete electrolytes as needed Fecal retention -KUB:Gaseous distention of the stomach with nonobstructive bowel gas pattern. Moderate to extensive colonic fecal retention. Continue bowel regimen Encouraged to ambulate as able Recurrent PE on coumadin Supratherapeutic INR Received Vit K 5mg Monitor INR INR 1.6 today Adjust Coumadin dose as needed Needs follow-up with Coumadin clinic on discharge COPD Ongoing tobacco use disorder Currently no signs of exacerbation Continue home inhalers Chronic pain syndrome On Suboxone Chronic diastolic CHF Monitor volume status Continue diuretics Hyperlipidemia on statin BPH Continue Proscar, Flomax Morbid obesity BMI 60.8 DVT Px: Coumadin CODE STATUS Full Code Disposition PT OT recommends rehab Case management to help with discharge planning Admission and Anticipated Discharge Date Admission Date: September 19, 2023 Subjective Patient is seen and examined at bedside States having left knee and foot pain Reports difficulty with ambulation Denies any chest pain, dyspnea, dizziness, nausea, vomiting, abdominal pain Evaluated by PT today Patient requesting rehab placement Review of Systems Review of Systems: All systems reviewed & are unremarkable except as noted in Subjective Physical Exam Physical Exam: Physical Exam: Vitals signs as noted above General Appearance:Morbidly Obese, no apparent distress Head: normocephalic, Atraumatic Eyes: normal inspection, EOMI Neck: supple, Trachea midline Respiratory/Chest: Decreased breath sounds, CTA, No accessory muscle use Cardiovascular: S1, S2, No murmur Abdomen/GI:Soft, Non tender, Bowel sounds present Extremities/Musculoskeletal:normal inspection, chronic venous stasis changes, minimal pedal edema, left foot in dressing Neurologic/Psych:AAOX3, grossly no focal neurological deficits Skin: normal color, warm Results & Data Results & Data Vital Signs (Past 12 Hours) Vital Signs Temp Pulse Resp BP Pulse Ox O2 Del Method 10/01/23 14:01 96 10/01/23 11:53 36.7 C 73 18 109/68 94 Room Air 10/01/23 09:00 Room Air 10/01/23 07:39 71 16 92 Room Air (2) Acute renal failure (ARF) Acute renal failure type: unspecified Qualified Code(s): N17.9 - Acute kidney failure, unspecified (4) AMS (altered mental status) Altered mental status type: unspecified Qualified Code(s): R41.82 - Altered mental status, unspecified
[2023-10-01] MEDS: WARFARIN SOD 5 MG TAB PO SCH (16:37)
[2023-10-01] MEDS ORDERED: ACETAMINOPHEN 1,000 MG/100 ML VIAL IV STA (21:21)
[2023-10-01] MEDS: LANTUS PER UNIT CHARGE SC SCH (21:42)
[2023-10-01] MEDS: CYCLOBENZAPRINE HCL 10 MG TAB PO PRN (22:02)
[2023-10-02] MEDS: POLYETHYLENE (MIRALAX) 17 GM PACK PO SCH ×5 (00:32→21:56)
[2023-10-02] MEDS: MICONAZOLE NITRATE POWDER 85 GM EXT SCH ×4 (06:17→20:57)
[2023-10-02] MEDS: PANTOprazole 40 MG TAB PO SCH (06:27)
[2023-10-02] MEDS: BUDESONIDE 0.5 MG/2 ML VIAL (PULMICORT) INH SCH ×2 (07:25→19:53)
[2023-10-02] MEDS: ACETAMINOPHEN 1,000 MG/100 ML VIAL IV PRN ×2 (08:27→18:29)
[2023-10-02] MEDS: INSULIN ASPART PER UNIT CHARGE SC SCH ×4 (08:28→20:48)
[2023-10-02] MEDS: FINASTERIDE 5 MG TAB PO SCH (08:28)
[2023-10-02] MEDS: FERROUS SULFATE 325 MG TAB PO SCH (08:28)
[2023-10-02] MEDS: buprenorphine HCL 8 MG SUBL SL SCH ×2 (08:28→20:49)
[2023-10-02] MEDS: SPIRONOLACTONE 25 MG TAB PO SCH (08:28)
[2023-10-02] MEDS: ASPIRIN 81 MG ECTAB PO SCH (08:28)
[2023-10-02] MEDS: CYCLOBENZAPRINE HCL 10 MG TAB PO PRN ×3 (08:28→20:49)
[2023-10-02] MEDS: METOPROLOL SUCC 25MG EXT REL TAB PO SCH ×2 (08:29→20:36)
[2023-10-02] MEDS: SENNA 8.6 MG TAB PO SCH ×2 (08:29→20:42)
[2023-10-02] MEDS: ATORVASTATIN 40 MG TAB PO SCH (08:29)
[2023-10-02] MEDS: MAGNESIUM OXIDE 400 MG TAB PO SCH (08:29)
[2023-10-02] MEDS: TAMSULOSIN HCL 0.4 MG CAP PO SCH (08:29)
[2023-10-02] MEDS: GABAPENTIN 800 MG TAB PO SCH ×3 (08:29→20:48)
[2023-10-02] MEDS: TORSEMIDE 10 MG TAB PO SCH (08:30)
[2023-10-02] MEDS: ISOSORBIDE DINITRATE 10 MG TAB PO SCH (08:30)
[2023-10-02] MEDS: DULoxetine HCL 60 MG CAP PO SCH (08:30)
[2023-10-02] MEDS: NICOTINE 14 MG/24 HR PATCH TD SCH (08:31)
[2023-10-02] MEDS: bisacodyL 5 MG TABEC PO SCH (08:31)
[2023-10-02] MEDS: FOLIC ACID 1 MG TAB PO SCH (08:32)
[2023-10-02] MEDS: FLUTICASONE PROPIONATE NA SPR 16 GM BTL SCH (08:32)
[2023-10-02] MEDS: POTASSIUM CHLORIDE CRTAB 20 MEQ TABCR PO SCH ×4 (08:48→20:47)
[2023-10-02] MEDS: FLUTICASONE/VILANTEROL 100/25MCG 14 PUFFS/INHALER INH SCH (08:48)
[2023-10-02] MEDS: FAMOTIDINE 20 MG TAB PO SCH (08:48)
[2023-10-02 08:56] LABS: BUN Creatinine Ratio 19.6 (10-20); Calcium 10.4 mg/dl (8.6-10.3); Creatinine Clr Calc Pharmacy 151.5 ml/min; Est GFR (African American) 96.8 ml/min; Est GFR (Non-African American) 83.5 ml/min; Magnesium 1.7 mg/dl (1.7-2.4); Potassium 3.3 mmol/L (3.5-5.1)
[2023-10-02 09:16] LABS: INR 1.4 (0.9-1.1); Prothrombin Time 15.1 Seconds (9.0-12.0)
[2023-10-02] MEDS ORDERED: POTASSIUM CHLORIDE CRTAB 20 MEQ TABCR PO ONE (10:08)
[2023-10-02] MEDS: buprenorphine HCL 2 MG SUBL SL SCH (14:08)
[2023-10-02] MEDS: WARFARIN SOD 5 MG TAB PO SCH (16:08)
--- NOTE | 2023-10-02 17:47 | Hospitalist Progress Note ---
Date of Service October 02, 2023 Assessment & Plan (1) Acute UTI (urinary tract infection): (2) Acute renal failure (ARF): (3) Elevated INR: (4) AMS (altered mental status): Plan Mr. Milner is a 53 year old gentleman with a past medical history significant for chronic diastolic heart failure, CAD/STEMI, prior subdural hematoma/subarachnoid hemorrhage, hypertension, hyperlipidemia, COPD, recurrent PE on Coumadin, DM 2,recurrent UTIs secondary to BPH/chronic urinary retention indwelling Lloyd catheter, chronic anemia, chronic pain on buprenorphine, hx MRSA/VRE who presented on 09/19 with AMS and decreased UOP. Patient was admitted for evaluation and management of MAHAMED in setting of CAUTI. Patient is readmitted multiple times over the course of the last year. When discussing barriers to health care as an outpatient, transportation and patient's habitus are limiting factors, as well as patient's understanding of utilization of health care resources and access to community services. CAUTI--POA Chronic urinary retention indwelling Lloyd catheter Possible sepsis treated and resolved --Blood culture negative Urine culture--mixed isabel Normal lactic acid Completed Levaquin for 5 day course Catheter exchanged while in ED 09/19 Urology signed off -Patient failed previous void trial secondary to habitus -Encouraged patient to follow up with urology in 3-4 weeks for exchange prior to infection setting in Need follow up with Urology on discharge PT OT recommends rehab Case management to help with discharge planning Continue current management Syncopal episode likely vasovagal in setting of BM Head CT: negative acute abnormality Interrogate loop recorder per pt request No recurrence of issues Left great toe injury 2/2 to fall LLE pain Knee X ray:No fracture or dislocation within the left knee. Diffuse soft tissue edema. Foot X ray:Soft tissue injury/edema in the first toe with no fracture identified. Dorsal heel spur. Excessive bleeding in setting of supratherapeutic INR Continue wound care Fall precautions Continue PT OT: Recommends rehab Acute metabolic encephalopathy secondary to above: resolved Reported history of falls --CT head:No evidence of acute intracranial pathology. --CXR:Cardiomegaly with no acute cardiopulmonary abnormality identified. Fall precautions PT OT as able Mental status back to baseline No acute issues currently MAHAMED:resolved Cr 4.82>4.2>2.5 >1.0 Avoid nephrotoxic agents as able Monitor renal function Discontinued IV fluids Continue home diuretics Vitamin D Deficiency --Vit D level 9 Started on Q7D 50,000U D2 Hypokalemia Replete electrolytes as needed Fecal retention -KUB:Gaseous distention of the stomach with nonobstructive bowel gas pattern. Moderate to extensive colonic fecal retention. Continue bowel regimen Encouraged to ambulate as able Recurrent PE on coumadin Supratherapeutic INR Received Vit K 5mg Monitor INR INR 1.4 today Adjust Coumadin dose as needed Needs follow-up with Coumadin clinic on discharge COPD Ongoing tobacco use disorder Currently no signs of exacerbation Continue home inhalers Chronic pain syndrome On Suboxone Chronic diastolic CHF Monitor volume status Continue diuretics Hyperlipidemia on statin BPH Continue Proscar, Flomax Morbid obesity BMI 60.8 DVT Px: Coumadin CODE STATUS Full Code Disposition PT OT recommends rehab Case management to help with discharge planning Admission and Anticipated Discharge Date Admission Date: September 19, 2023 Subjective Patient is seen and examined at bedside Reports left knee and foot pain lightly better Denies any chest pain, dyspnea, dizziness, nausea, vomiting, abdominal pain Patient requesting rehab placement No new complaints Review of Systems Review of Systems: All systems reviewed & are unremarkable except as noted in Subjective Physical Exam Physical Exam: Physical Exam: Vitals signs as noted above General Appearance:Morbidly Obese, no apparent distress Head: normocephalic, Atraumatic Eyes: normal inspection, EOMI Neck: supple, Trachea midline Respiratory/Chest: Decreased breath sounds, CTA, No accessory muscle use Cardiovascular: S1, S2, No murmur Abdomen/GI:Soft, Non tender, Bowel sounds present Extremities/Musculoskeletal:normal inspection, chronic venous stasis changes, minimal pedal edema, left foot in dressing Neurologic/Psych:AAOX3, grossly no focal neurological deficits Skin: normal color, warm Results & Data Results & Data Vital Signs (Past 12 Hours) Vital Signs Temp Pulse Resp BP Pulse Ox O2 Del Method 10/02/23 15:47 103/44 L 10/02/23 15:35 36.7 C 70 18 96 Room Air 10/02/23 09:00 Room Air 10/02/23 07:47 36.6 C 71 20 128/70 96 Room Air 10/02/23 07:26 73 18 92 Room Air Laboratory Results [facility] 10/02/23 08:13 Sodium 137 Potassium 3.3 L Chloride 94 L Carbon Dioxide 37 H BUN 20 Creatinine 1.02 Glucose 153 H Calcium 10.4 H (2) Acute renal failure (ARF) Acute renal failure type: unspecified Qualified Code(s): N17.9 - Acute kidney failure, unspecified (4) AMS (altered mental status) Altered mental status type: unspecified Qualified Code(s): R41.82 - Altered mental status, unspecified
[2023-10-02] MEDS: LANTUS PER UNIT CHARGE SC SCH (20:47)
[2023-10-03] MEDS: MICONAZOLE NITRATE POWDER 85 GM EXT SCH ×3 (06:06→17:48)
[2023-10-03] MEDS: PANTOprazole 40 MG TAB PO SCH (06:06)
[2023-10-03 06:25] LABS: BUN Creatinine Ratio 20.6 (10-20); Calcium 9.8 mg/dl (8.6-10.3); Creatinine Clr Calc Pharmacy 151.5 ml/min; Est GFR (African American) 96.8 ml/min; Est GFR (Non-African American) 83.5 ml/min; Potassium 3.5 mmol/L (3.5-5.1)
[2023-10-03 06:29] LABS: INR 1.6 (0.9-1.1); Prothrombin Time 17.1 Seconds (9.0-12.0)
[2023-10-03] MEDS: POLYETHYLENE (MIRALAX) 17 GM PACK PO SCH ×3 (07:06→17:48)
[2023-10-03] MEDS: BUDESONIDE 0.5 MG/2 ML VIAL (PULMICORT) INH SCH ×2 (07:44→19:53)
[2023-10-03] MEDS: CYCLOBENZAPRINE HCL 10 MG TAB PO PRN ×2 (08:46→21:04)
[2023-10-03] MEDS: ACETAMINOPHEN 1,000 MG/100 ML VIAL IV PRN ×2 (08:46→21:03)
[2023-10-03] MEDS: POTASSIUM CHLORIDE CRTAB 20 MEQ TABCR PO SCH ×4 (08:46→21:04)
[2023-10-03] MEDS: buprenorphine HCL 8 MG SUBL SL SCH ×2 (08:46→21:05)
[2023-10-03] MEDS: INSULIN ASPART PER UNIT CHARGE SC SCH ×4 (08:47→21:20)
[2023-10-03] MEDS: GABAPENTIN 800 MG TAB PO SCH ×3 (08:47→21:04)
[2023-10-03] MEDS: DULoxetine HCL 60 MG CAP PO SCH (08:48)
[2023-10-03] MEDS: ASPIRIN 81 MG ECTAB PO SCH (08:48)
[2023-10-03] MEDS: ERGOCALCIFEROL 50,000 UNITS 1250 MCG CAP PO SCH (08:48)
[2023-10-03] MEDS: SENNA 8.6 MG TAB PO SCH ×2 (08:48→20:42)
[2023-10-03] MEDS: SPIRONOLACTONE 25 MG TAB PO SCH (08:48)
[2023-10-03] MEDS: FLUTICASONE PROPIONATE NA SPR 16 GM BTL SCH (08:51)
[2023-10-03] MEDS: FLUTICASONE/VILANTEROL 100/25MCG 14 PUFFS/INHALER INH SCH (08:51)
[2023-10-03] MEDS: ATORVASTATIN 40 MG TAB PO SCH (08:52)
[2023-10-03] MEDS: METOPROLOL SUCC 25MG EXT REL TAB PO SCH ×2 (08:52→21:08)
[2023-10-03] MEDS: FERROUS SULFATE 325 MG TAB PO SCH (08:53)
[2023-10-03] MEDS: NICOTINE 14 MG/24 HR PATCH TD SCH (08:53)
[2023-10-03] MEDS: MAGNESIUM OXIDE 400 MG TAB PO SCH (08:53)
[2023-10-03] MEDS: TORSEMIDE 10 MG TAB PO SCH (08:53)
[2023-10-03] MEDS: ISOSORBIDE DINITRATE 10 MG TAB PO SCH (08:53)
[2023-10-03] MEDS: TAMSULOSIN HCL 0.4 MG CAP PO SCH (08:54)
[2023-10-03] MEDS: FOLIC ACID 1 MG TAB PO SCH (08:54)
[2023-10-03] MEDS: FINASTERIDE 5 MG TAB PO SCH (08:54)
[2023-10-03] MEDS: FAMOTIDINE 20 MG TAB PO SCH (08:56)
[2023-10-03] MEDS: bisacodyL 5 MG TABEC PO SCH (08:56)
[2023-10-03] MEDS: buprenorphine HCL 2 MG SUBL SL SCH (14:39)
[2023-10-03] MEDS: WARFARIN SOD 5 MG TAB PO SCH (16:36)
--- NOTE | 2023-10-03 17:07 | Hospitalist Progress Note ---
Date of Service October 03, 2023 Assessment & Plan (1) Acute UTI (urinary tract infection): (2) Acute renal failure (ARF): (3) Elevated INR: (4) AMS (altered mental status): Plan Mr. Milner is a 53 year old gentleman with a past medical history significant for chronic diastolic heart failure, CAD/STEMI, prior subdural hematoma/subarachnoid hemorrhage, hypertension, hyperlipidemia, COPD, recurrent PE on Coumadin, DM 2,recurrent UTIs secondary to BPH/chronic urinary retention indwelling Lloyd catheter, chronic anemia, chronic pain on buprenorphine, hx MRSA/VRE who presented on 09/19 with AMS and decreased UOP. Patient was admitted for evaluation and management of MAHAMED in setting of CAUTI. Patient is readmitted multiple times over the course of the last year. When discussing barriers to health care as an outpatient, transportation and patient's habitus are limiting factors, as well as patient's understanding of utilization of health care resources and access to community services. CAUTI--POA Chronic urinary retention indwelling Lloyd catheter Possible sepsis treated and resolved --Blood culture negative Urine culture--mixed isabel Normal lactic acid Completed Levaquin for 5 day course Catheter exchanged while in ED 09/19 Urology signed off -Patient failed previous void trial secondary to habitus -Encouraged patient to follow up with urology in 3-4 weeks for exchange prior to infection setting in Need follow up with Urology on discharge PT OT recommends rehab Case management to help with discharge planning Waiting for rehab placement Syncopal episode likely vasovagal in setting of BM Head CT: negative acute abnormality Interrogate loop recorder per pt request No recurrence of issues Left great toe injury 2/2 to fall LLE pain Knee X ray:No fracture or dislocation within the left knee. Diffuse soft tissue edema. Foot X ray:Soft tissue injury/edema in the first toe with no fracture identified. Dorsal heel spur. Excessive bleeding in setting of supratherapeutic INR Continue wound care Fall precautions Continue PT OT: Recommends rehab Acute metabolic encephalopathy secondary to above: resolved Reported history of falls --CT head:No evidence of acute intracranial pathology. --CXR:Cardiomegaly with no acute cardiopulmonary abnormality identified. Fall precautions PT OT as able Mental status back to baseline No acute issues currently MAHAMED:resolved Cr 4.82>4.2>2.5 >1.0 Avoid nephrotoxic agents as able Monitor renal function Discontinued IV fluids Continue home diuretics Vitamin D Deficiency --Vit D level 9 Started on Q7D 50,000U D2 Hypokalemia Replete electrolytes as needed Fecal retention -KUB:Gaseous distention of the stomach with nonobstructive bowel gas pattern. Moderate to extensive colonic fecal retention. Continue bowel regimen Encouraged to ambulate as able Recurrent PE on coumadin Supratherapeutic INR Received Vit K 5mg Monitor INR INR 1.6 today Adjust Coumadin dose as needed Needs follow-up with Coumadin clinic on discharge COPD Ongoing tobacco use disorder Currently no signs of exacerbation Continue home inhalers Chronic pain syndrome On Suboxone Chronic diastolic CHF Monitor volume status Continue diuretics Hyperlipidemia on statin BPH Continue Proscar, Flomax Morbid obesity BMI 60.8 DVT Px: Coumadin CODE STATUS Full Code Disposition PT OT recommends rehab Case management to help with discharge planning Admission and Anticipated Discharge Date Admission Date: September 19, 2023 Subjective Patient is seen and examined at bedside No new complaints Left knee and foot pain is controlled Denies any chest pain, dyspnea, dizziness, nausea, vomiting, abdominal pain Waiting for rehab placement Review of Systems Review of Systems: All systems reviewed & are unremarkable except as noted in Subjective Physical Exam Physical Exam: Physical Exam: Vitals signs as noted above General Appearance:Morbidly Obese, no apparent distress Head: normocephalic, Atraumatic Eyes: normal inspection, EOMI Neck: supple, Trachea midline Respiratory/Chest: Decreased breath sounds, CTA, No accessory muscle use Cardiovascular: S1, S2, No murmur Abdomen/GI:Soft, Non tender, Bowel sounds present Extremities/Musculoskeletal:normal inspection, chronic venous stasis changes, minimal pedal edema, left foot in dressing Neurologic/Psych:AAOX3, grossly no focal neurological deficits Skin: normal color, warm Results & Data Results & Data Vital Signs (Past 12 Hours) Vital Signs Temp Pulse Resp BP BP Pulse Ox O2 Del Method 10/03/23 14:21 37.2 C 77 20 104/64 94 Room Air 10/03/23 09:00 Room Air 10/03/23 07:44 76 18 94 Room Air 10/03/23 07:33 36.8 C 73 20 101/51 L 95 Room Air Laboratory Results [facility] 10/03/23 05:42 Sodium 137 Potassium 3.5 Chloride 96 L Carbon Dioxide 36 H BUN 21 Creatinine 1.02 Glucose 165 H Calcium 9.8 (2) Acute renal failure (ARF) Acute renal failure type: unspecified Qualified Code(s): N17.9 - Acute kidney failure, unspecified (4) AMS (altered mental status) Altered mental status type: unspecified Qualified Code(s): R41.82 - Altered mental status, unspecified
[2023-10-03] MEDS: LANTUS PER UNIT CHARGE SC SCH (21:21)
[2023-10-04] MEDS: POLYETHYLENE (MIRALAX) 17 GM PACK PO SCH ×5 (00:25→23:45)
[2023-10-04] MEDS: MICONAZOLE NITRATE POWDER 85 GM EXT SCH ×5 (00:25→23:45)
[2023-10-04] MEDS: PANTOprazole 40 MG TAB PO SCH (06:20)
[2023-10-04] MEDS: BUDESONIDE 0.5 MG/2 ML VIAL (PULMICORT) INH SCH ×2 (07:20→19:07)
[2023-10-04 07:44] LABS: BUN Creatinine Ratio 18.9 (10-20); Calcium 9.6 mg/dl (8.6-10.3); Creatinine Clr Calc Pharmacy 145.8 ml/min; Est GFR (African American) 92.4 ml/min; Est GFR (Non-African American) 79.7 ml/min; Potassium 3.5 mmol/L (3.5-5.1)
[2023-10-04 07:48] LABS: INR 1.9 (0.9-1.1); Prothrombin Time 19.8 Seconds (9.0-12.0)
[2023-10-04] MEDS ORDERED: LORazepam 0.5 MG TAB PO STA (09:17)
[2023-10-04] MEDS: INSULIN ASPART PER UNIT CHARGE SC SCH ×4 (09:30→21:10)
[2023-10-04] MEDS: ACETAMINOPHEN 1,000 MG/100 ML VIAL IV PRN (09:31)
[2023-10-04] MEDS: NICOTINE 14 MG/24 HR PATCH TD SCH (09:32)
[2023-10-04] MEDS: ATORVASTATIN 40 MG TAB PO SCH (09:33)
[2023-10-04] MEDS: ASPIRIN 81 MG ECTAB PO SCH (09:33)
[2023-10-04] MEDS: FOLIC ACID 1 MG TAB PO SCH (09:33)
[2023-10-04] MEDS: GABAPENTIN 800 MG TAB PO SCH ×3 (09:33→20:55)
[2023-10-04] MEDS: metOLazone 2.5 MG TABLET PO SCH (09:33)
[2023-10-04] MEDS: ISOSORBIDE DINITRATE 10 MG TAB PO SCH (09:33)
[2023-10-04] MEDS: TAMSULOSIN HCL 0.4 MG CAP PO SCH (09:33)
[2023-10-04] MEDS: DULoxetine HCL 60 MG CAP PO SCH (09:33)
[2023-10-04] MEDS: FERROUS SULFATE 325 MG TAB PO SCH (09:33)
[2023-10-04] MEDS: MAGNESIUM OXIDE 400 MG TAB PO SCH (09:33)
[2023-10-04] MEDS: SPIRONOLACTONE 25 MG TAB PO SCH (09:34)
[2023-10-04] MEDS: CYCLOBENZAPRINE HCL 10 MG TAB PO PRN ×2 (09:34→21:09)
[2023-10-04] MEDS: POTASSIUM CHLORIDE CRTAB 20 MEQ TABCR PO SCH ×4 (09:34→21:09)
[2023-10-04] MEDS: FINASTERIDE 5 MG TAB PO SCH (09:34)
[2023-10-04] MEDS: buprenorphine HCL 8 MG SUBL SL SCH ×2 (09:34→21:10)
[2023-10-04] MEDS: bisacodyL 5 MG TABEC PO SCH (09:35)
[2023-10-04] MEDS: SENNA 8.6 MG TAB PO SCH ×2 (09:35→20:55)
[2023-10-04] MEDS: FAMOTIDINE 20 MG TAB PO SCH (09:35)
[2023-10-04] MEDS: FLUTICASONE/VILANTEROL 100/25MCG 14 PUFFS/INHALER INH SCH (09:36)
[2023-10-04] MEDS: FLUTICASONE PROPIONATE NA SPR 16 GM BTL SCH (09:36)
[2023-10-04] MEDS: TORSEMIDE 10 MG TAB PO SCH (09:36)
[2023-10-04] MEDS: METOPROLOL SUCC 25MG EXT REL TAB PO SCH ×2 (09:53→20:55)
[2023-10-04] MEDS: buprenorphine HCL 2 MG SUBL SL SCH (14:08)
[2023-10-04] MEDS ORDERED: NON-FORMULARY MEDICATION (Dextromethorphan-Guaifenesin [Mucinex Dm] 30-600 mg Tablet Exten PO PRN (14:20)
[2023-10-04] MEDS: guaiFENesin 600 MG TABCR PO SCH ×2 (15:50→20:55)
[2023-10-04] MEDS: WARFARIN SOD 4 MG TAB PO SCH (16:46)
--- NOTE | 2023-10-04 17:38 | Hospitalist Progress Note ---
Date of Service October 04, 2023 Assessment & Plan (1) Acute UTI (urinary tract infection): (2) Acute renal failure (ARF): (3) Elevated INR: (4) AMS (altered mental status): Plan Mr. Milner is a 53 year old gentleman with a past medical history significant for chronic diastolic heart failure, CAD/STEMI, prior subdural hematoma/subarachnoid hemorrhage, hypertension, hyperlipidemia, COPD, recurrent PE on Coumadin, DM 2,recurrent UTIs secondary to BPH/chronic urinary retention indwelling Lloyd catheter, chronic anemia, chronic pain on buprenorphine, hx MRSA/VRE who presented on 09/19 with AMS and decreased UOP. Patient was admitted for evaluation and management of MAHAMED in setting of CAUTI. Patient is readmitted multiple times over the course of the last year. When discussing barriers to health care as an outpatient, transportation and patient's habitus are limiting factors, as well as patient's understanding of utilization of health care resources and access to community services. CAUTI--POA Chronic urinary retention indwelling Lloyd catheter Possible sepsis treated and resolved --Blood culture negative Urine culture--mixed isabel Normal lactic acid Completed Levaquin for 5 day course Catheter exchanged while in ED 09/19 Urology signed off -Patient failed previous void trial secondary to habitus -Encouraged patient to follow up with urology in 3-4 weeks for exchange prior to infection setting in Need follow up with Urology on discharge PT OT recommends rehab Case management to help with discharge planning Waiting for rehab placement No new issues Syncopal episode likely vasovagal in setting of BM Head CT: negative acute abnormality Interrogate loop recorder per pt request No recurrence of issues Left great toe injury 2/2 to fall LLE pain Knee X ray:No fracture or dislocation within the left knee. Diffuse soft tissue edema. Foot X ray:Soft tissue injury/edema in the first toe with no fracture identified. Dorsal heel spur. Excessive bleeding in setting of supratherapeutic INR Continue wound care Fall precautions Continue PT OT: Recommends rehab Acute metabolic encephalopathy secondary to above: resolved Reported history of falls --CT head:No evidence of acute intracranial pathology. --CXR:Cardiomegaly with no acute cardiopulmonary abnormality identified. Fall precautions PT OT as able Mental status back to baseline No acute issues currently MAHAMED:resolved Cr 4.82>4.2>2.5 >1.0 Avoid nephrotoxic agents as able Monitor renal function Discontinued IV fluids Continue home diuretics Vitamin D Deficiency --Vit D level 9 Started on Q7D 50,000U D2 Hypokalemia Replete electrolytes as needed Fecal retention -KUB:Gaseous distention of the stomach with nonobstructive bowel gas pattern. Moderate to extensive colonic fecal retention. Continue bowel regimen Encouraged to ambulate as able Recurrent PE on coumadin Supratherapeutic INR Received Vit K 5mg Monitor INR INR 1.9 today Adjust Coumadin dose as needed Needs follow-up with Coumadin clinic on discharge COPD Ongoing tobacco use disorder Currently no signs of exacerbation Continue home inhalers Chronic pain syndrome On Suboxone Chronic diastolic CHF Monitor volume status Continue diuretics Hyperlipidemia on statin BPH Continue Proscar, Flomax Morbid obesity BMI 60.8 DVT Px: Coumadin CODE STATUS Full Code Disposition PT OT recommends rehab Case management to help with discharge planning Admission and Anticipated Discharge Date Admission Date: September 19, 2023 Subjective Patient is seen and examined at bedside Reports having anxiety this morning Left knee and foot pain better today. Ambulating few extra steps per patient Denies any chest pain, dyspnea, dizziness, nausea, vomiting, abdominal pain Waiting for rehab placement Review of Systems Review of Systems: All systems reviewed & are unremarkable except as noted in Subjective Physical Exam Physical Exam: Physical Exam: Vitals signs as noted above General Appearance:Morbidly Obese, no apparent distress Head: normocephalic, Atraumatic Eyes: normal inspection, EOMI Neck: supple, Trachea midline Respiratory/Chest: Decreased breath sounds, CTA, No accessory muscle use Cardiovascular: S1, S2, No murmur Abdomen/GI:Soft, Non tender, Bowel sounds present Extremities/Musculoskeletal:normal inspection, chronic venous stasis changes, minimal pedal edema, left foot in dressing Neurologic/Psych:AAOX3, grossly no focal neurological deficits Skin: normal color, warm Results & Data Results & Data Vital Signs (Past 12 Hours) Vital Signs Temp Pulse Resp BP Pulse Ox O2 Del Method 10/04/23 15:37 37.0 C 77 16 118/61 92 Room Air 10/04/23 09:52 65 113/55 L 10/04/23 09:30 Room Air 10/04/23 07:50 36.9 C 66 16 106/58 L 93 Room Air 10/04/23 07:20 66 18 94 Room Air Laboratory Results [facility] 10/04/23 06:42 Sodium 138 Potassium 3.5 Chloride 98 Carbon Dioxide 36 H BUN 20 Creatinine 1.06 Glucose 147 H Calcium 9.6 (2) Acute renal failure (ARF) Acute renal failure type: unspecified Qualified Code(s): N17.9 - Acute kidney failure, unspecified (4) AMS (altered mental status) Altered mental status type: unspecified Qualified Code(s): R41.82 - Altered mental status, unspecified
[2023-10-04] MEDS: LORazepam 0.5 MG TAB PO PRN (21:09)
[2023-10-04] MEDS: LANTUS PER UNIT CHARGE SC SCH (21:10)
[2023-10-05] MEDS: MICONAZOLE NITRATE POWDER 85 GM EXT SCH ×3 (05:23→17:41)
[2023-10-05] MEDS: POLYETHYLENE (MIRALAX) 17 GM PACK PO SCH ×3 (05:24→17:41)
[2023-10-05] MEDS: PANTOprazole 40 MG TAB PO SCH (05:24)
[2023-10-05 06:28] LABS: BUN Creatinine Ratio 19.4 (10-20); Calcium 9.8 mg/dl (8.6-10.3); Creatinine Clr Calc Pharmacy 150.1 ml/min; Est GFR (African American) 95.7 ml/min; Est GFR (Non-African American) 82.5 ml/min; Potassium 3.3 mmol/L (3.5-5.1)
[2023-10-05] MEDS: BUDESONIDE 0.5 MG/2 ML VIAL (PULMICORT) INH SCH ×2 (07:11→19:41)
[2023-10-05] MEDS: ASPIRIN 81 MG ECTAB PO SCH (08:32)
[2023-10-05] MEDS: ATORVASTATIN 40 MG TAB PO SCH (08:34)
[2023-10-05] MEDS: DULoxetine HCL 60 MG CAP PO SCH (08:35)
[2023-10-05] MEDS: bisacodyL 5 MG TABEC PO SCH (08:35)
[2023-10-05] MEDS: FERROUS SULFATE 325 MG TAB PO SCH (08:36)
[2023-10-05] MEDS: FINASTERIDE 5 MG TAB PO SCH (08:37)
[2023-10-05] MEDS: FOLIC ACID 1 MG TAB PO SCH (08:37)
[2023-10-05] MEDS: GABAPENTIN 800 MG TAB PO SCH ×3 (08:37→21:26)
[2023-10-05] MEDS: guaiFENesin 600 MG TABCR PO SCH ×2 (08:38→21:26)
[2023-10-05] MEDS: METOPROLOL SUCC 25MG EXT REL TAB PO SCH ×2 (08:39→21:33)
[2023-10-05] MEDS: ISOSORBIDE DINITRATE 10 MG TAB PO SCH (08:39)
[2023-10-05] MEDS: MAGNESIUM OXIDE 400 MG TAB PO SCH (08:39)
[2023-10-05] MEDS: NICOTINE 14 MG/24 HR PATCH TD SCH (08:40)
[2023-10-05] MEDS: SENNA 8.6 MG TAB PO SCH ×2 (08:40→21:33)
[2023-10-05] MEDS: TAMSULOSIN HCL 0.4 MG CAP PO SCH (08:41)
[2023-10-05] MEDS: TORSEMIDE 10 MG TAB PO SCH (08:41)
[2023-10-05] MEDS: SPIRONOLACTONE 25 MG TAB PO SCH (08:41)
[2023-10-05] MEDS: FLUTICASONE PROPIONATE NA SPR 16 GM BTL SCH (08:43)
[2023-10-05] MEDS: FLUTICASONE/VILANTEROL 100/25MCG 14 PUFFS/INHALER INH SCH (08:43)
[2023-10-05] MEDS: buprenorphine HCL 8 MG SUBL SL SCH ×2 (08:54→21:25)
[2023-10-05] MEDS: POTASSIUM CHLORIDE CRTAB 20 MEQ TABCR PO SCH ×4 (08:54→21:29)
[2023-10-05] MEDS: INSULIN ASPART PER UNIT CHARGE SC SCH ×4 (08:55→21:23)
[2023-10-05] MEDS: DOCUSATE SODIUM 100 MG CAP PO PRN (08:55)
[2023-10-05] MEDS: CYCLOBENZAPRINE HCL 10 MG TAB PO PRN ×2 (08:55→21:25)
[2023-10-05] MEDS: FAMOTIDINE 20 MG TAB PO SCH (08:55)
[2023-10-05] MEDS: LORazepam 0.5 MG TAB PO PRN ×2 (08:55→21:29)
[2023-10-05] MEDS: ACETAMINOPHEN 1,000 MG/100 ML VIAL IV PRN (09:02)
[2023-10-05] MEDS: COUGH DROP (SUGAR FREE) LOZ 24 LOZ/1 BOX BUCCAL PRN (09:23)
[2023-10-05] MEDS: buprenorphine HCL 2 MG SUBL SL SCH (13:54)
[2023-10-05] MEDS ORDERED: KETOROLAC TROMETHAMINE 10 MG TABLET PO ONE (16:00)
--- NOTE | 2023-10-05 16:39 | Hospitalist Progress Note ---
Date of Service October 05, 2023 Assessment & Plan (1) Acute UTI (urinary tract infection): (2) Acute renal failure (ARF): (3) Elevated INR: (4) AMS (altered mental status): Plan Mr. Milner is a 53 year old gentleman with a past medical history significant for chronic diastolic heart failure, CAD/STEMI, prior subdural hematoma/subarachnoid hemorrhage, hypertension, hyperlipidemia, COPD, recurrent PE on Coumadin, DM 2,recurrent UTIs secondary to BPH/chronic urinary retention indwelling Lloyd catheter, chronic anemia, chronic pain on buprenorphine, hx MRSA/VRE who presented on 09/19 with AMS and decreased UOP. Patient was admitted for evaluation and management of MAHAMED in setting of CAUTI. Patient is readmitted multiple times over the course of the last year. When discussing barriers to health care as an outpatient, transportation and patient's habitus are limiting factors, as well as patient's understanding of utilization of health care resources and access to community services. CAUTI--POA Chronic urinary retention indwelling Lloyd catheter Possible sepsis treated and resolved --Blood culture negative Urine culture--mixed isabel Normal lactic acid Completed Levaquin for 5 day course Catheter exchanged while in ED 09/19 Urology signed off -Patient failed previous void trial secondary to habitus -Encouraged patient to follow up with urology in 3-4 weeks for exchange prior to infection setting in Need follow up with Urology on discharge PT OT recommends rehab Waiting for rehab placement Hypokalemia Likely due to diuretics Monitor and replace electrolytes as needed Syncopal episode likely vasovagal in setting of BM Head CT: negative acute abnormality Interrogate loop recorder per pt request No recurrence of issues Left great toe injury 2/2 to fall LLE pain Knee X ray:No fracture or dislocation within the left knee. Diffuse soft tissue edema. Foot X ray:Soft tissue injury/edema in the first toe with no fracture identified. Dorsal heel spur. Excessive bleeding in setting of supratherapeutic INR Continue wound care Fall precautions Continue PT OT: Recommends rehab Acute metabolic encephalopathy secondary to above: resolved Reported history of falls --CT head:No evidence of acute intracranial pathology. --CXR:Cardiomegaly with no acute cardiopulmonary abnormality identified. Fall precautions PT OT as able Mental status back to baseline No acute issues currently MAHAMED:resolved Cr 4.82>4.2>2.5 >1.0 Avoid nephrotoxic agents as able Monitor renal function Discontinued IV fluids Continue home diuretics Vitamin D Deficiency --Vit D level 9 Started on Q7D 50,000U D2 Hypokalemia Replete electrolytes as needed Fecal retention -KUB:Gaseous distention of the stomach with nonobstructive bowel gas pattern. Moderate to extensive colonic fecal retention. Continue bowel regimen Encouraged to ambulate as able Recurrent PE on coumadin Supratherapeutic INR Received Vit K 5mg Monitor INR INR 2.0 today Adjust Coumadin dose as needed Needs follow-up with Coumadin clinic on discharge COPD Ongoing tobacco use disorder Currently no signs of exacerbation Continue home inhalers Chronic pain syndrome On Suboxone Chronic diastolic CHF Monitor volume status Continue diuretics Hyperlipidemia on statin BPH Continue Proscar, Flomax Morbid obesity BMI 60.8 DVT Px: Coumadin CODE STATUS Full Code Disposition PT OT recommends rehab Case management to help with discharge planning Admission and Anticipated Discharge Date Admission Date: September 19, 2023 Subjective Patient is seen and examined at bedside States having bilateral knee pain Subjectively feels ill No other complaints Denies any chest pain, dyspnea, dizziness, nausea, vomiting, abdominal pain Waiting for rehab placement Review of Systems Review of Systems: All systems reviewed & are unremarkable except as noted in Subjective Physical Exam Physical Exam: Physical Exam: Vitals signs as noted above General Appearance:Morbidly Obese, no apparent distress Head: normocephalic, Atraumatic Eyes: normal inspection, EOMI Neck: supple, Trachea midline Respiratory/Chest: Decreased breath sounds, CTA, No accessory muscle use Cardiovascular: S1, S2, No murmur Abdomen/GI:Soft, Non tender, Bowel sounds present Extremities/Musculoskeletal:normal inspection, chronic venous stasis changes, minimal pedal edema, left foot in dressing Neurologic/Psych:AAOX3, grossly no focal neurological deficits Skin: normal color, warm Results & Data Results & Data Vital Signs (Past 12 Hours) Vital Signs Temp Pulse Resp BP BP Pulse Ox O2 Del Method 10/05/23 16:23 36.8 C 75 16 129/64 92 Room Air 10/05/23 08:30 77 128/74 10/05/23 08:00 Room Air 10/05/23 07:11 65 18 92 Room Air 10/05/23 06:22 36.5 C 72 18 115/72 94 Room Air Laboratory Results [facility] 10/05/23 05:34 Sodium 136 Potassium 3.3 L Chloride 95 L Carbon Dioxide 36 H BUN 20 Creatinine 1.03 Glucose 200 H Calcium 9.8 (2) Acute renal failure (ARF) Acute renal failure type: unspecified Qualified Code(s): N17.9 - Acute kidney failure, unspecified (4) AMS (altered mental status) Altered mental status type: unspecified Qualified Code(s): R41.82 - Altered mental status, unspecified
[2023-10-05] MEDS: WARFARIN SOD 4 MG TAB PO SCH (17:33)
[2023-10-05] MEDS: DICLOFENAC SOD 1% GEL 100 GM TUBE EXT PRN (17:35)
[2023-10-05] MEDS: LANTUS PER UNIT CHARGE SC SCH (21:24)
[2023-10-06] MEDS: MICONAZOLE NITRATE POWDER 85 GM EXT SCH ×5 (00:05→22:23)
[2023-10-06] MEDS: POLYETHYLENE (MIRALAX) 17 GM PACK PO SCH ×4 (00:22→17:35)
[2023-10-06] MEDS: PANTOprazole 40 MG TAB PO SCH (05:45)
[2023-10-06 06:18] LABS: Hematocrit (blood only) 36.9 % (42.0-52.0); Hemoglobin 11.9 g/dl (14.0-18.0); Mean Corpuscular Hemoglobin 25.6 pg (25.0-34.0); Mean Corpuscular Hgb Conc 32.2 g/dL (32.0-36.0); Mean Corpuscular Volume 79.5 fL (80.0-100.0); Mean Platelet Volume 10.5 fL (9.4-12.4); Platelet Count 276 K/uL (130-400); RDW Coefficient of Variation 20.9 % (11.5-14.5); RDW Standard Deviation 60.1 fL (36.4-46.3); Red Blood Count 4.64 M/uL (4.70-6.10); White Blood Count 12.32 K/ul (4.8-10.8)
[2023-10-06 06:34] LABS: BUN Creatinine Ratio 18.9 (10-20); Calcium 9.7 mg/dl (8.6-10.3); Creatinine Clr Calc Pharmacy 145.8 ml/min; Est GFR (African American) 92.4 ml/min; Est GFR (Non-African American) 79.7 ml/min; Potassium 3.3 mmol/L (3.5-5.1)
[2023-10-06 06:40] LABS: INR 2.3 (0.9-1.1)
[2023-10-06] MEDS: BUDESONIDE 0.5 MG/2 ML VIAL (PULMICORT) INH SCH ×2 (07:29→20:07)
[2023-10-06] MEDS: TORSEMIDE 10 MG TAB PO SCH (08:22)
[2023-10-06] MEDS: FOLIC ACID 1 MG TAB PO SCH (08:23)
[2023-10-06] MEDS: FERROUS SULFATE 325 MG TAB PO SCH (08:23)
[2023-10-06] MEDS: ASPIRIN 81 MG ECTAB PO SCH (08:23)
[2023-10-06] MEDS: SPIRONOLACTONE 25 MG TAB PO SCH (08:23)
[2023-10-06] MEDS: SENNA 8.6 MG TAB PO SCH ×2 (08:24→20:50)
[2023-10-06] MEDS: ATORVASTATIN 40 MG TAB PO SCH (08:24)
[2023-10-06] MEDS: TAMSULOSIN HCL 0.4 MG CAP PO SCH (08:24)
[2023-10-06] MEDS: DULoxetine HCL 60 MG CAP PO SCH (08:24)
[2023-10-06] MEDS: ISOSORBIDE DINITRATE 10 MG TAB PO SCH (08:25)
[2023-10-06] MEDS: MAGNESIUM OXIDE 400 MG TAB PO SCH (08:25)
[2023-10-06] MEDS: guaiFENesin 600 MG TABCR PO SCH ×2 (08:25→20:52)
[2023-10-06] MEDS: GABAPENTIN 800 MG TAB PO SCH ×3 (08:26→20:51)
[2023-10-06] MEDS: FINASTERIDE 5 MG TAB PO SCH (08:26)
[2023-10-06] MEDS: METOPROLOL SUCC 25MG EXT REL TAB PO SCH ×2 (08:27→20:52)
[2023-10-06] MEDS: metOLazone 2.5 MG TABLET PO SCH (08:28)
[2023-10-06] MEDS: FLUTICASONE/VILANTEROL 100/25MCG 14 PUFFS/INHALER INH SCH (08:29)
[2023-10-06] MEDS: NICOTINE 14 MG/24 HR PATCH TD SCH (08:29)
[2023-10-06] MEDS: FLUTICASONE PROPIONATE NA SPR 16 GM BTL SCH (08:30)
[2023-10-06] MEDS: ACETAMINOPHEN 1,000 MG/100 ML VIAL IV PRN (08:36)
[2023-10-06] MEDS: DICLOFENAC SOD 1% GEL 100 GM TUBE EXT PRN (08:37)
[2023-10-06] MEDS: POTASSIUM CHLORIDE CRTAB 20 MEQ TABCR PO SCH ×4 (08:51→21:07)
[2023-10-06] MEDS: FAMOTIDINE 20 MG TAB PO SCH (08:51)
[2023-10-06] MEDS: bisacodyL 5 MG TABEC PO SCH (08:51)
[2023-10-06] MEDS: buprenorphine HCL 8 MG SUBL SL SCH ×2 (08:51→21:07)
[2023-10-06] MEDS: INSULIN ASPART PER UNIT CHARGE SC SCH ×4 (08:51→21:11)
[2023-10-06] MEDS: DOCUSATE SODIUM 100 MG CAP PO PRN (08:51)
[2023-10-06] MEDS: CYCLOBENZAPRINE HCL 10 MG TAB PO PRN ×2 (08:51→21:07)
[2023-10-06] MEDS: LORazepam 0.5 MG TAB PO PRN ×2 (08:51→21:07)
[2023-10-06] MEDS: PROMETHAZINE HCL 12.5 MG in SODIUM CHLORIDE 0.9% 50 ML IV PRN (14:19)
[2023-10-06] MEDS: buprenorphine HCL 2 MG SUBL SL SCH (14:19)
--- NOTE | 2023-10-06 14:19 | Hospitalist Progress Note ---
Date of Service October 06, 2023 Assessment & Plan (1) Acute UTI (urinary tract infection): (2) Acute renal failure (ARF): (3) Elevated INR: (4) AMS (altered mental status): Plan Mr. Milner is a 53 year old gentleman with a past medical history significant for chronic diastolic heart failure, CAD/STEMI, prior subdural hematoma/subarachnoid hemorrhage, hypertension, hyperlipidemia, COPD, recurrent PE on Coumadin, DM 2,recurrent UTIs secondary to BPH/chronic urinary retention indwelling Lloyd catheter, chronic anemia, chronic pain on buprenorphine, hx MRSA/VRE who presented on 09/19 with AMS and decreased urine output. Patient was admitted for evaluation and management of MAHAMED in setting of CAUTI. CAUTI--POA Chronic urinary retention indwelling Lloyd catheter Possible sepsis treated and resolved Patient presented with altered mental status and decreased urine output. --Blood culture negative Urine culture--mixed isabel Normal lactic acid Completed Levaquin for 5 day course Catheter exchanged while in ED 09/19 Urology signed off -Patient failed previous void trial secondary to habitus -Encouraged patient to follow up with urology in 3-4 weeks for exchange prior to infection setting in Need follow up with Urology on discharge PT OT recommends rehab Waiting for rehab placement Hypokalemia Likely due to diuretics Monitor and replace electrolytes as needed On KCl 20 mg 3 times daily. Syncopal episode likely vasovagal in setting of BM Head CT: negative acute abnormality Interrogate loop recorder per pt request No recurrence of issues Left great toe injury 2/2 to fall LLE pain Knee X ray:No fracture or dislocation within the left knee. Diffuse soft tissue edema. Foot X ray:Soft tissue injury/edema in the first toe with no fracture identified. Dorsal heel spur. Continue wound care Fall precautions Continue PT OT: Recommends rehab Acute metabolic encephalopathy secondary to above: resolved Reported history of falls --CT head:No evidence of acute intracranial pathology. --CXR:Cardiomegaly with no acute cardiopulmonary abnormality identified. Fall precautions PT OT as able Mental status back to baseline No acute issues currently MAHAMED:resolved, likely prerenal Cr 4.82>4.2>2.5 >1.0 Avoid nephrotoxic agents as able Monitor renal function Discontinued IV fluids Continue home diuretics Vitamin D Deficiency --Vit D level 9 Started on Q7D 50,000U D2 Hypokalemia Replete electrolytes as needed Fecal retention -KUB:Gaseous distention of the stomach with nonobstructive bowel gas pattern. Moderate to extensive colonic fecal retention. Continue bowel regimen Encouraged to ambulate as able Recurrent PE on coumadin Supratherapeutic INR on admission Received Vit K 5mg Monitor INR Therapeutic currently Adjust Coumadin dose as needed Needs follow-up with Coumadin clinic on discharge COPD Ongoing tobacco use disorder Currently no signs of exacerbation Continue home inhalers Chronic pain syndrome On Suboxone Chronic diastolic CHF Monitor volume status Continue diuretics Hyperlipidemia on statin BPH Continue Proscar, Flomax Morbid obesity BMI 60.8 DVT Px: Coumadin CODE STATUS Full Code Disposition PT OT recommends rehab Case management to help with discharge planning Please note the above document was generated using voice recognition software. It may contain grammatical, syntax or spelling errors. Any formal questions or concerns about the content, text or information contained within the body of this dictation should be directly addressed to the provider for clarification Admission and Anticipated Discharge Date Admission Date: September 19, 2023 Subjective Patient seen and examined at bedside. Comfortable; not in distress. He reports that his knee pain has continued to improve. He is looking forward to participating in PT OT. Denies fever, chills, chest pain, shortness of breath, abdominal pain or urinary symptoms. No significant overnight events Review of Systems Review of Systems: All systems reviewed & are unremarkable except as noted in Subjective Physical Exam Physical Exam: Physical Exam: Vitals signs as noted above General Appearance:Morbidly Obese, no apparent distress Head: Bruises present on the nose Respiratory/Chest: Decreased breath sounds, CTA, No accessory muscle use Cardiovascular: S1, S2, No murmur Abdomen/GI:Soft, Non tender, Bowel sounds present Extremities/Musculoskeletal:normal inspection, chronic venous stasis changes, minimal pedal edema, left foot in dressing Neurologic/Psych:AAOX3, grossly no focal neurological deficits Skin: normal color, warm Results & Data Results & Data Vital Signs (Past 12 Hours) Vital Signs Temp Pulse Resp BP Pulse Ox O2 Del Method 10/06/23 13:41 36.7 C 81 18 109/73 92 Room Air 10/06/23 07:43 36.4 C L 69 18 125/76 95 Room Air 10/06/23 07:35 Room Air 10/06/23 07:29 65 17 94 Room Air (2) Acute renal failure (ARF) Acute renal failure type: unspecified Qualified Code(s): N17.9 - Acute kidney failure, unspecified (4) AMS (altered mental status) Altered mental status type: unspecified Qualified Code(s): R41.82 - Altered mental status, unspecified
[2023-10-06] MEDS: WARFARIN SOD 4 MG TAB PO SCH (16:59)
[2023-10-06] MEDS: COUGH DROP (SUGAR FREE) LOZ 24 LOZ/1 BOX BUCCAL PRN (17:46)
[2023-10-06] MEDS: MUPIROCIN 2% OINT 22 GM TUBE EXT SCH (21:08)
[2023-10-06] MEDS: LANTUS PER UNIT CHARGE SC SCH (21:10)
[2023-10-06] MEDS ORDERED: ACETAMINOPHEN 1,000 MG/100 ML VIAL IV STA (21:28)
[2023-10-07] MEDS: POLYETHYLENE (MIRALAX) 17 GM PACK PO SCH ×4 (01:19→17:08)
[2023-10-07] MEDS: MICONAZOLE NITRATE POWDER 85 GM EXT SCH ×4 (06:04→23:46)
[2023-10-07] MEDS: PANTOprazole 40 MG TAB PO SCH (06:05)
[2023-10-07 06:38] LABS: INR 2.5 (0.9-1.1); Prothrombin Time 25.4 Seconds (9.0-12.0)
[2023-10-07 06:40] LABS: Basophils # (auto) 0.05 K/uL (0.00-0.20); Basophils % (auto) 0.5 %; Eosinophils # (auto) 0.62 K/uL (0.00-0.50); Hematocrit (blood only) 35.4 % (42.0-52.0); Hemoglobin 11.3 g/dl (14.0-18.0); Immature Granulocytes # (auto) 0.05 K/uL (0.01-0.20); Immature Granulocytes % (auto) 0.5 %; Lymphocytes # (auto) 2.29 K/uL (1.20-3.40); Lymphocytes % (auto) 22.1 %; Mean Corpuscular Hemoglobin 25.6 pg (25.0-34.0); Mean Corpuscular Hgb Conc 31.9 g/dL (32.0-36.0); Mean Corpuscular Volume 80.1 fL (80.0-100.0); Mean Platelet Volume 10.8 fL (9.4-12.4); Monocytes # (auto) 0.59 K/uL (0.11-0.59); Monocytes % (auto) 5.7 %; Neutrophils # (auto) 6.74 K/uL (1.40-6.50); Neutrophils % (auto) 65.2 %; Platelet Count 278 K/uL (130-400); RDW Coefficient of Variation 20.7 % (11.5-14.5); RDW Standard Deviation 59.9 fL (36.4-46.3); Red Blood Count 4.42 M/uL (4.70-6.10); White Blood Count 10.34 K/ul (4.8-10.8)
[2023-10-07 07:17] LABS: Anisocytosis Present; Ovalocytes 1+
[2023-10-07 07:25] LABS: Albumin Level 3.4 gm/dl (3.4-5.0); BUN Creatinine Ratio 20.4 (10-20); Bilirubin,Total 0.5 mg/dl (0.2-1.0); Calcium 9.3 mg/dl (8.6-10.3); Creatinine Clr Calc Pharmacy 157.7 ml/min; Est GFR (African American) 101.6 ml/min; Est GFR (Non-African American) 87.7 ml/min; Globulin 3.4 gm/dl (2.5-4.0); Potassium 3.2 mmol/L (3.5-5.1); Total Protein 6.8 gm/dl (6.0-8.3)
[2023-10-07] MEDS: BUDESONIDE 0.5 MG/2 ML VIAL (PULMICORT) INH SCH ×2 (07:27→19:51)
[2023-10-07] MEDS: INSULIN ASPART PER UNIT CHARGE SC SCH ×4 (08:22→21:40)
[2023-10-07] MEDS: buprenorphine HCL 8 MG SUBL SL SCH ×2 (08:29→21:24)
[2023-10-07] MEDS: LORazepam 0.5 MG TAB PO PRN ×2 (08:29→21:24)
[2023-10-07] MEDS: CYCLOBENZAPRINE HCL 10 MG TAB PO PRN ×2 (08:29→21:24)
[2023-10-07] MEDS: POTASSIUM CHLORIDE CRTAB 20 MEQ TABCR PO SCH ×4 (08:29→21:26)
[2023-10-07] MEDS: bisacodyL 5 MG TABEC PO SCH (08:29)
[2023-10-07] MEDS: DOCUSATE SODIUM 100 MG CAP PO PRN ×2 (08:29→21:24)
[2023-10-07] MEDS: FAMOTIDINE 20 MG TAB PO SCH (08:29)
[2023-10-07] MEDS: ISOSORBIDE DINITRATE 10 MG TAB PO SCH (08:30)
[2023-10-07] MEDS: FERROUS SULFATE 325 MG TAB PO SCH (08:30)
[2023-10-07] MEDS: TORSEMIDE 10 MG TAB PO SCH (08:30)
[2023-10-07] MEDS: ASPIRIN 81 MG ECTAB PO SCH (08:30)
[2023-10-07] MEDS: FINASTERIDE 5 MG TAB PO SCH (08:30)
[2023-10-07] MEDS: ATORVASTATIN 40 MG TAB PO SCH (08:31)
[2023-10-07] MEDS: DULoxetine HCL 60 MG CAP PO SCH (08:31)
[2023-10-07] MEDS: METOPROLOL SUCC 25MG EXT REL TAB PO SCH ×2 (08:31→21:24)
[2023-10-07] MEDS: SENNA 8.6 MG TAB PO SCH ×2 (08:31→21:24)
[2023-10-07] MEDS: MAGNESIUM OXIDE 400 MG TAB PO SCH (08:31)
[2023-10-07] MEDS: GABAPENTIN 800 MG TAB PO SCH ×3 (08:31→21:24)
[2023-10-07] MEDS: FOLIC ACID 1 MG TAB PO SCH (08:31)
[2023-10-07] MEDS: TAMSULOSIN HCL 0.4 MG CAP PO SCH (08:32)
[2023-10-07] MEDS: SPIRONOLACTONE 25 MG TAB PO SCH (08:32)
[2023-10-07] MEDS: guaiFENesin 600 MG TABCR PO SCH ×2 (08:32→21:24)
[2023-10-07] MEDS: MUPIROCIN 2% OINT 22 GM TUBE EXT SCH ×2 (08:33→21:24)
[2023-10-07] MEDS: NICOTINE 14 MG/24 HR PATCH TD SCH (08:33)
[2023-10-07] MEDS: ACETAMINOPHEN 1,000 MG/100 ML VIAL IV PRN (08:45)
[2023-10-07] MEDS: FLUTICASONE/VILANTEROL 100/25MCG 14 PUFFS/INHALER INH SCH (08:51)
[2023-10-07] MEDS: FLUTICASONE PROPIONATE NA SPR 16 GM BTL SCH (10:04)
[2023-10-07] MEDS: buprenorphine HCL 2 MG SUBL SL SCH (14:02)
--- NOTE | 2023-10-07 14:15 | Hospitalist Progress Note ---
Date of Service October 07, 2023 Assessment & Plan (1) Acute UTI (urinary tract infection): (2) Acute renal failure (ARF): (3) Elevated INR: (4) AMS (altered mental status): Plan Mr. Milner is a 53 year old gentleman with a past medical history significant for chronic diastolic heart failure, CAD/STEMI, prior subdural hematoma/subarachnoid hemorrhage, hypertension, hyperlipidemia, COPD, recurrent PE on Coumadin, DM 2,recurrent UTIs secondary to BPH/chronic urinary retention indwelling Lloyd catheter, chronic anemia, chronic pain on buprenorphine, hx MRSA/VRE who presented on 09/19 with AMS and decreased urine output. Patient was admitted for evaluation and management of MAHAMED in setting of CAUTI. CAUTI--POA Chronic urinary retention indwelling Lloyd catheter Possible sepsis treated and resolved Patient presented with altered mental status and decreased urine output. --Blood culture no growth till date Urine culture--mixed isabel Normal lactic acid Completed Levaquin for 5 day course Catheter exchanged while in ED 09/19 Urology signed off -Patient failed previous void trial secondary to habitus -Encouraged patient to follow up with urology in 3-4 weeks for exchange prior to infection setting in Need follow up with Urology on discharge PT OT recommends rehab Waiting for rehab placement Hypokalemia Likely due to diuretics Monitor and replace electrolytes as needed On KCl 20 mg 3 times daily. Syncopal episode likely vasovagal in setting of bowel movement Head CT: negative acute abnormality Interrogate loop recorder per pt request No recurrence of issues Left great toe injury 2/2 to fall LLE pain Knee X ray:No fracture or dislocation within the left knee. Diffuse soft tissue edema. Foot X ray:Soft tissue injury/edema in the first toe with no fracture identified. Dorsal heel spur. Continue wound care Fall precautions Continue PT OT: Recommends rehab Acute metabolic encephalopathy secondary to above: resolved Reported history of falls --CT head:No evidence of acute intracranial pathology. --CXR:Cardiomegaly with no acute cardiopulmonary abnormality identified. Fall precautions PT OT as able Mental status back to baseline No acute issues currently MAHAMED:resolved, likely prerenal Cr 4.82>4.2>2.5 >1.0 Avoid nephrotoxic agents as able Monitor renal function Discontinued IV fluids Continue home diuretics Vitamin D Deficiency --Vit D level 9 Started on Q7D 50,000U D2 Hypokalemia Replete electrolytes as needed Fecal retention -KUB:Gaseous distention of the stomach with nonobstructive bowel gas pattern. Moderate to extensive colonic fecal retention. Continue bowel regimen Encouraged to ambulate as able Recurrent PE on coumadin Supratherapeutic INR on admission Received Vit K 5mg Monitor INR Therapeutic currently Adjust Coumadin dose as needed Needs follow-up with Coumadin clinic on discharge COPD Ongoing tobacco use disorder Currently no signs of exacerbation Continue home inhalers Chronic pain syndrome On Suboxone Chronic diastolic CHF Monitor volume status Continue diuretics Hyperlipidemia on statin BPH Continue Proscar, Flomax Morbid obesity BMI 60.8 DVT Px: Coumadin CODE STATUS Full Code Disposition PT OT recommends rehab Case management to help with discharge planning. Please note the above document was generated using voice recognition software. It may contain grammatical, syntax or spelling errors. Any formal questions or concerns about the content, text or information contained within the body of this dictation should be directly addressed to the provider for clarification Admission and Anticipated Discharge Date Admission Date: September 19, 2023 Subjective Patient seen and examined at bedside. He is comfortably sitting up on the bed; not in distress. Denies fever, chills, chest pain, shortness of breath, abdominal pain or urinary symptoms. Lloyd is in place draining clear urine No significant overnight events Review of Systems Review of Systems: All systems reviewed & are unremarkable except as noted in Subjective Physical Exam Physical Exam: Physical Exam: Vitals signs as noted above General Appearance:Morbidly Obese, no apparent distress Head: Bruises present on the nose Respiratory/Chest: Decreased breath sounds, CTA, No accessory muscle use Cardiovascular: S1, S2, No murmur Abdomen/GI:Soft, Non tender, Bowel sounds present Extremities/Musculoskeletal:normal inspection, chronic venous stasis changes, minimal pedal edema, left foot in dressing Neurologic/Psych:AAOX3, grossly no focal neurological deficits Skin: normal color, warm Results & Data Results & Data Vital Signs (Past 12 Hours) Vital Signs Temp Pulse Resp BP Pulse Ox O2 Del Method O2 Flow Rate 10/07/23 07:47 36.4 C L 68 18 102/64 97 Nasal Cannula 4 10/07/23 07:28 68 18 98 Nasal Cannula 4 (2) Acute renal failure (ARF) Acute renal failure type: unspecified Qualified Code(s): N17.9 - Acute kidney failure, unspecified (4) AMS (altered mental status) Altered mental status type: unspecified Qualified Code(s): R41.82 - Altered mental status, unspecified
[2023-10-07] MEDS: PROMETHAZINE HCL 12.5 MG in SODIUM CHLORIDE 0.9% 50 ML IV PRN (14:42)
[2023-10-07] MEDS: WARFARIN SOD 4 MG TAB PO SCH (16:20)
[2023-10-07] MEDS ORDERED: ACETAMINOPHEN 1,000 MG/100 ML VIAL IV STA (18:25)
[2023-10-07] MEDS: LANTUS PER UNIT CHARGE SC SCH (21:40)
[2023-10-08] MEDS: POLYETHYLENE (MIRALAX) 17 GM PACK PO SCH ×4 (00:23→17:14)
[2023-10-08] MEDS: PANTOprazole 40 MG TAB PO SCH (06:02)
[2023-10-08] MEDS: MICONAZOLE NITRATE POWDER 85 GM EXT SCH ×3 (06:03→17:13)
[2023-10-08 06:46] LABS: Basophils # (auto) 0.06 K/uL (0.00-0.20); Basophils % (auto) 0.5 %; Eosinophils # (auto) 0.74 K/uL (0.00-0.50); Eosinophils % (auto) 6.6 %; Hemoglobin 11.6 g/dl (14.0-18.0); Immature Granulocytes # (auto) 0.06 K/uL (0.01-0.20); Immature Granulocytes % (auto) 0.5 %; Lymphocytes # (auto) 2.64 K/uL (1.20-3.40); Lymphocytes % (auto) 23.7 %; Mean Corpuscular Hgb Conc 31.4 g/dL (32.0-36.0); Mean Corpuscular Volume 79.7 fL (80.0-100.0); Mean Platelet Volume 11.5 fL (9.4-12.4); Monocytes # (auto) 0.75 K/uL (0.11-0.59); Monocytes % (auto) 6.7 %; Neutrophils # (auto) 6.88 K/uL (1.40-6.50); Platelet Count 303 K/uL (130-400); RDW Coefficient of Variation 20.4 % (11.5-14.5); RDW Standard Deviation 59.4 fL (36.4-46.3); Red Blood Count 4.64 M/uL (4.70-6.10); White Blood Count 11.13 K/ul (4.8-10.8)
[2023-10-08 06:58] LABS: Albumin Level 3.5 gm/dl (3.4-5.0); BUN Creatinine Ratio 19.1 (10-20); Bilirubin,Total 0.5 mg/dl (0.2-1.0); Calcium 9.4 mg/dl (8.6-10.3); Creatinine Clr Calc Pharmacy 164.4 ml/min; Est GFR (African American) 106.9 ml/min; Est GFR (Non-African American) 92.2 ml/min; Globulin 3.4 gm/dl (2.5-4.0); Potassium 3.2 mmol/L (3.5-5.1); Total Protein 6.9 gm/dl (6.0-8.3)
[2023-10-08 07:03] LABS: INR 3.1 (0.9-1.1); Prothrombin Time 31.2 Seconds (9.0-12.0)
[2023-10-08 07:24] LABS: Anisocytosis Present; Polychromasia 1+
[2023-10-08] MEDS: BUDESONIDE 0.5 MG/2 ML VIAL (PULMICORT) INH SCH ×2 (07:30→20:19)
[2023-10-08] MEDS: guaiFENesin 600 MG TABCR PO SCH ×2 (07:52→20:05)
[2023-10-08] MEDS: METOPROLOL SUCC 25MG EXT REL TAB PO SCH ×2 (07:52→20:04)
[2023-10-08] MEDS: GABAPENTIN 800 MG TAB PO SCH ×3 (07:53→19:59)
[2023-10-08] MEDS: TAMSULOSIN HCL 0.4 MG CAP PO SCH (07:53)
[2023-10-08] MEDS: ASPIRIN 81 MG ECTAB PO SCH (07:53)
[2023-10-08] MEDS: MAGNESIUM OXIDE 400 MG TAB PO SCH (07:53)
[2023-10-08] MEDS: SENNA 8.6 MG TAB PO SCH ×2 (07:53→20:00)
[2023-10-08] MEDS: SPIRONOLACTONE 25 MG TAB PO SCH (07:53)
[2023-10-08] MEDS: FOLIC ACID 1 MG TAB PO SCH (07:54)
[2023-10-08] MEDS: ISOSORBIDE DINITRATE 10 MG TAB PO SCH (07:54)
[2023-10-08] MEDS: FINASTERIDE 5 MG TAB PO SCH (07:54)
[2023-10-08] MEDS: ATORVASTATIN 40 MG TAB PO SCH (07:54)
[2023-10-08] MEDS: metOLazone 2.5 MG TABLET PO SCH (07:54)
[2023-10-08] MEDS: DULoxetine HCL 60 MG CAP PO SCH (07:54)
[2023-10-08] MEDS: FERROUS SULFATE 325 MG TAB PO SCH (07:54)
[2023-10-08] MEDS: TORSEMIDE 10 MG TAB PO SCH (07:54)
[2023-10-08] MEDS: bisacodyL 5 MG TABEC PO SCH (07:55)
[2023-10-08] MEDS: FAMOTIDINE 20 MG TAB PO SCH (07:56)
[2023-10-08] MEDS: NICOTINE 14 MG/24 HR PATCH TD SCH (08:00)
[2023-10-08] MEDS: FLUTICASONE PROPIONATE NA SPR 16 GM BTL SCH (08:00)
[2023-10-08] MEDS: FLUTICASONE/VILANTEROL 100/25MCG 14 PUFFS/INHALER INH SCH (08:00)
[2023-10-08] MEDS: MUPIROCIN 2% OINT 22 GM TUBE EXT SCH ×2 (08:01→20:06)
[2023-10-08] MEDS: buprenorphine HCL 8 MG SUBL SL SCH ×2 (08:04→20:04)
[2023-10-08] MEDS: CYCLOBENZAPRINE HCL 10 MG TAB PO PRN ×2 (08:04→20:04)
[2023-10-08] MEDS: LORazepam 0.5 MG TAB PO PRN ×2 (08:04→20:04)
[2023-10-08] MEDS: POTASSIUM CHLORIDE CRTAB 20 MEQ TABCR PO SCH ×4 (08:09→20:10)
[2023-10-08] MEDS: INSULIN ASPART PER UNIT CHARGE SC SCH ×4 (08:09→21:02)
[2023-10-08] MEDS: ACETAMINOPHEN 1,000 MG/100 ML VIAL IV PRN (10:05)
[2023-10-08] MEDS: buprenorphine HCL 2 MG SUBL SL SCH (12:54)
[2023-10-08] MEDS ORDERED: POTASSIUM CHLORIDE CRTAB 20 MEQ TABCR PO STA (16:04)
--- NOTE | 2023-10-08 16:08 | Hospitalist Progress Note ---
Date of Service October 08, 2023 Assessment & Plan (1) Acute UTI (urinary tract infection): (2) Acute renal failure (ARF): (3) Elevated INR: (4) AMS (altered mental status): Plan Mr. Milner is a 53 year old gentleman with a past medical history significant for chronic diastolic heart failure, CAD/STEMI, prior subdural hematoma/subarachnoid hemorrhage, hypertension, hyperlipidemia, COPD, recurrent PE on Coumadin, DM 2,recurrent UTIs secondary to BPH/chronic urinary retention indwelling Lloyd catheter, chronic anemia, chronic pain on buprenorphine, hx MRSA/VRE who presented on 09/19 with AMS and decreased urine output. Patient was admitted for evaluation and management of MAHAMED in setting of CAUTI. CAUTI--POA Chronic urinary retention indwelling Lloyd catheter Possible sepsis treated and resolved Patient presented with altered mental status and decreased urine output. --Blood culture no growth till date Urine culture--mixed isabel Normal lactic acid Completed Levaquin for 5 day course Catheter exchanged while in ED 09/19 Urology signed off -Patient failed previous void trial secondary to habitus -Encouraged patient to follow up with urology in 3-4 weeks for exchange prior to infection setting in Need follow up with Urology on discharge PT OT recommends rehab Waiting for rehab placement Hypokalemia Likely due to diuretics Monitor and replace electrolytes as needed On KCl 20 mg 3 times daily. Syncopal episode likely vasovagal in setting of bowel movement Head CT: negative acute abnormality Interrogate loop recorder per pt request No recurrence of issues Left great toe injury 2/2 to fall LLE pain Knee X ray:No fracture or dislocation within the left knee. Diffuse soft tissue edema. Foot X ray:Soft tissue injury/edema in the first toe with no fracture identified. Dorsal heel spur. Continue wound care Fall precautions Continue PT OT: Recommends rehab Acute metabolic encephalopathy secondary to above: resolved Reported history of falls --CT head:No evidence of acute intracranial pathology. --CXR:Cardiomegaly with no acute cardiopulmonary abnormality identified. Fall precautions PT OT as able Mental status back to baseline No acute issues currently MAHAMED:resolved, likely prerenal Cr 4.82>4.2>2.5 >1.0 Avoid nephrotoxic agents as able Monitor renal function Discontinued IV fluids Continue home diuretics Vitamin D Deficiency --Vit D level 9 Started on Q7D 50,000U D2 Hypokalemia Replete electrolytes as needed Fecal retention -KUB:Gaseous distention of the stomach with nonobstructive bowel gas pattern. Moderate to extensive colonic fecal retention. Continue bowel regimen Encouraged to ambulate as able Recurrent PE on coumadin Supratherapeutic INR on admission Received Vit K 5mg Slightly elevated INR. Hold Coumadin today Adjust Coumadin dose as needed Needs follow-up with Coumadin clinic on discharge COPD Ongoing tobacco use disorder Currently no signs of exacerbation Continue home inhalers Chronic pain syndrome On Suboxone Chronic diastolic CHF Monitor volume status Continue diuretics Hyperlipidemia on statin BPH Continue Proscar, Flomax Morbid obesity BMI 60.8 DVT Px: Coumadin CODE STATUS Full Code Disposition PT OT recommends rehab Case management to help with discharge planning. Please note the above document was generated using voice recognition software. It may contain grammatical, syntax or spelling errors. Any formal questions or concerns about the content, text or information contained within the body of this dictation should be directly addressed to the provider for clarification Admission and Anticipated Discharge Date Admission Date: September 19, 2023 Subjective Patient seen and examined at bedside. Comfortable; not in distress. Denies fever, chills, chest pain, shortness of breath, abdominal pain or urinary symptoms. No significant overnight events Review of Systems Review of Systems: All systems reviewed & are unremarkable except as noted in Subjective Physical Exam Physical Exam: Physical Exam: Vitals signs as noted above General Appearance:Morbidly Obese, no apparent distress Head: Bruises present on the nose Respiratory/Chest: Decreased breath sounds, CTA, No accessory muscle use Cardiovascular: S1, S2, No murmur Abdomen/GI:Soft, Non tender, Bowel sounds present Extremities/Musculoskeletal:normal inspection, chronic venous stasis changes, minimal pedal edema, left foot in dressing Neurologic/Psych:AAOX3, grossly no focal neurological deficits Skin: normal color, warm Results & Data Results & Data Vital Signs (Past 12 Hours) Vital Signs Temp Pulse Resp BP Pulse Ox O2 Del Method O2 Flow Rate 10/08/23 15:32 96 Room Air 10/08/23 15:19 36.6 C 74 18 102/63 92 Room Air 10/08/23 07:32 64 16 98 Nasal Cannula 4 10/08/23 07:30 Room Air (2) Acute renal failure (ARF) Acute renal failure type: unspecified Qualified Code(s): N17.9 - Acute kidney failure, unspecified (4) AMS (altered mental status) Altered mental status type: unspecified Qualified Code(s): R41.82 - Altered mental status, unspecified
[2023-10-08] MEDS: DOCUSATE SODIUM 100 MG CAP PO PRN (20:04)
[2023-10-08] MEDS ORDERED: ACETAMINOPHEN 1,000 MG/100 ML VIAL IV STA (20:22)
[2023-10-08] MEDS: LANTUS PER UNIT CHARGE SC SCH (21:02)
[2023-10-09] MEDS: MICONAZOLE NITRATE POWDER 85 GM EXT SCH ×4 (00:58→16:21)
[2023-10-09] MEDS: POLYETHYLENE (MIRALAX) 17 GM PACK PO SCH ×4 (00:58→16:58)
[2023-10-09] MEDS: COUGH DROP (SUGAR FREE) LOZ 24 LOZ/1 BOX BUCCAL PRN ×2 (01:35→18:50)
[2023-10-09] MEDS: PANTOprazole 40 MG TAB PO SCH (05:59)
[2023-10-09 06:27] LABS: Basophils # (auto) 0.05 K/uL (0.00-0.20); Basophils % (auto) 0.4 %; Eosinophils # (auto) 0.68 K/uL (0.00-0.50); Eosinophils % (auto) 5.7 %; Hematocrit (blood only) 36.7 % (42.0-52.0); Hemoglobin 11.6 g/dl (14.0-18.0); Immature Granulocytes # (auto) 0.06 K/uL (0.01-0.20); Immature Granulocytes % (auto) 0.5 %; Lymphocytes # (auto) 2.57 K/uL (1.20-3.40); Lymphocytes % (auto) 21.5 %; Mean Corpuscular Hemoglobin 25.4 pg (25.0-34.0); Mean Corpuscular Hgb Conc 31.6 g/dL (32.0-36.0); Mean Corpuscular Volume 80.5 fL (80.0-100.0); Mean Platelet Volume 10.5 fL (9.4-12.4); Monocytes # (auto) 0.83 K/uL (0.11-0.59); Neutrophils # (auto) 7.74 K/uL (1.40-6.50); Neutrophils % (auto) 64.9 %; Platelet Count 282 K/uL (130-400); RDW Coefficient of Variation 20.4 % (11.5-14.5); RDW Standard Deviation 59.3 fL (36.4-46.3); Red Blood Count 4.56 M/uL (4.70-6.10); White Blood Count 11.93 K/ul (4.8-10.8)
[2023-10-09 06:49] LABS: BUN Creatinine Ratio 17.4 (10-20); Calcium 9.7 mg/dl (8.6-10.3); Creatinine Clr Calc Pharmacy 134.4 ml/min; Est GFR (African American) 83.7 ml/min; Est GFR (Non-African American) 72.3 ml/min; Potassium 3.4 mmol/L (3.5-5.1)
[2023-10-09 07:01] LABS: Anisocytosis Present
[2023-10-09] MEDS: INSULIN ASPART PER UNIT CHARGE SC SCH ×5 (07:06→21:09)
[2023-10-09] MEDS: BUDESONIDE 0.5 MG/2 ML VIAL (PULMICORT) INH SCH ×2 (07:34→19:57)
[2023-10-09] MEDS: ASPIRIN 81 MG ECTAB PO SCH (07:39)
[2023-10-09] MEDS: METOPROLOL SUCC 25MG EXT REL TAB PO SCH ×2 (07:39→21:13)
[2023-10-09] MEDS: buprenorphine HCL 8 MG SUBL SL SCH ×2 (07:39→21:09)
[2023-10-09] MEDS: guaiFENesin 600 MG TABCR PO SCH ×2 (07:40→21:11)
[2023-10-09] MEDS: FINASTERIDE 5 MG TAB PO SCH (07:40)
[2023-10-09] MEDS: ISOSORBIDE DINITRATE 10 MG TAB PO SCH (07:40)
[2023-10-09] MEDS: FERROUS SULFATE 325 MG TAB PO SCH (07:41)
[2023-10-09] MEDS: SPIRONOLACTONE 25 MG TAB PO SCH (07:41)
[2023-10-09] MEDS: TAMSULOSIN HCL 0.4 MG CAP PO SCH (07:41)
[2023-10-09] MEDS: ATORVASTATIN 40 MG TAB PO SCH (07:41)
[2023-10-09] MEDS: TORSEMIDE 10 MG TAB PO SCH (07:41)
[2023-10-09] MEDS: GABAPENTIN 800 MG TAB PO SCH ×3 (07:41→21:11)
[2023-10-09] MEDS: DULoxetine HCL 60 MG CAP PO SCH (07:42)
[2023-10-09] MEDS: FOLIC ACID 1 MG TAB PO SCH (07:42)
[2023-10-09] MEDS: POTASSIUM CHLORIDE CRTAB 20 MEQ TABCR PO SCH ×4 (07:42→21:09)
[2023-10-09] MEDS: MAGNESIUM OXIDE 400 MG TAB PO SCH (07:42)
[2023-10-09] MEDS: SENNA 8.6 MG TAB PO SCH ×2 (07:42→21:10)
[2023-10-09 07:43] LABS: INR 2.6 (0.9-1.1); Prothrombin Time 26.9 Seconds (9.0-12.0)
[2023-10-09] MEDS: FLUTICASONE PROPIONATE NA SPR 16 GM BTL SCH (07:43)
[2023-10-09] MEDS: MUPIROCIN 2% OINT 22 GM TUBE EXT SCH ×2 (07:43→21:10)
[2023-10-09] MEDS: FLUTICASONE/VILANTEROL 100/25MCG 14 PUFFS/INHALER INH SCH (07:43)
[2023-10-09] MEDS: NICOTINE 14 MG/24 HR PATCH TD SCH (07:44)
[2023-10-09] MEDS: bisacodyL 5 MG TABEC PO SCH (07:44)
[2023-10-09] MEDS: FAMOTIDINE 20 MG TAB PO SCH (07:45)
[2023-10-09] MEDS: CYCLOBENZAPRINE HCL 10 MG TAB PO PRN ×2 (07:51→21:09)
[2023-10-09] MEDS: LORazepam 0.5 MG TAB PO PRN ×2 (07:51→21:10)
[2023-10-09] MEDS: ACETAMINOPHEN 1,000 MG/100 ML VIAL IV PRN (10:49)
--- NOTE | 2023-10-09 13:20 | Hospitalist Progress Note ---
Date of Service October 09, 2023 Assessment & Plan (1) Acute UTI (urinary tract infection): (2) Acute renal failure (ARF): (3) Elevated INR: (4) AMS (altered mental status): Plan Mr. Milner is a 53 year old gentleman with a past medical history significant for chronic diastolic heart failure, CAD/STEMI, prior subdural hematoma/subarachnoid hemorrhage, hypertension, hyperlipidemia, COPD, recurrent PE on Coumadin, DM 2,recurrent UTIs secondary to BPH/chronic urinary retention indwelling Lloyd catheter, chronic anemia, chronic pain on buprenorphine, hx MRSA/VRE who presented on 09/19 with AMS and decreased urine output. Patient was admitted for evaluation and management of MAHAMED in setting of CAUTI. CAUTI--POA Chronic urinary retention indwelling Lloyd catheter Possible sepsis treated and resolved Patient presented with altered mental status and decreased urine output. --Blood culture no growth till date Urine culture--mixed isabel Normal lactic acid Completed Levaquin for 5 day course Catheter exchanged while in ED 09/19 Urology signed off -Patient failed previous void trial secondary to habitus -Encouraged patient to follow up with urology in 3-4 weeks for exchange prior to infection setting in Need follow up with Urology on discharge PT OT recommends rehab Waiting for rehab placement Hypokalemia Likely due to diuretics Monitor and replace electrolytes as needed On KCl 20 mg 4 times daily. Syncopal episode likely vasovagal in setting of bowel movement Head CT: negative acute abnormality Interrogate loop recorder per pt request No recurrence of issues Left great toe injury 2/2 to fall LLE pain Knee X ray:No fracture or dislocation within the left knee. Diffuse soft tissue edema. Foot X ray:Soft tissue injury/edema in the first toe with no fracture identified. Dorsal heel spur. Continue wound care Fall precautions Continue PT OT: Recommends rehab Acute metabolic encephalopathy secondary to above: resolved Reported history of falls --CT head:No evidence of acute intracranial pathology. --CXR:Cardiomegaly with no acute cardiopulmonary abnormality identified. Fall precautions PT OT as able Mental status back to baseline No acute issues currently MAHAMED:resolved, likely prerenal Cr 4.82>4.2>2.5 >1.0 Avoid nephrotoxic agents as able Monitor renal function Discontinued IV fluids Continue home diuretics Vitamin D Deficiency --Vit D level 9 Started on Q7D 50,000U D2 Hypokalemia Replete electrolytes as needed Fecal retention -KUB:Gaseous distention of the stomach with nonobstructive bowel gas pattern. Moderate to extensive colonic fecal retention. Continue bowel regimen Encouraged to ambulate as able Recurrent PE on coumadin Supratherapeutic INR on admission Received Vit K 5mg INR within therapeutic range Needs follow-up with Coumadin clinic on discharge COPD Ongoing tobacco use disorder Currently no signs of exacerbation Continue home inhalers Chronic pain syndrome On Suboxone Chronic diastolic CHF Monitor volume status Continue diuretics Hyperlipidemia on statin BPH Continue Proscar, Flomax Morbid obesity BMI 60.8 DVT Px: Coumadin CODE STATUS Full Code Disposition PT OT recommends rehab Case management to help with discharge planning. Please note the above document was generated using voice recognition software. It may contain grammatical, syntax or spelling errors. Any formal questions or concerns about the content, text or information contained within the body of this dictation should be directly addressed to the provider for clarification Admission and Anticipated Discharge Date Admission Date: September 19, 2023 Subjective Patient seen and examined at bedside. Comfortable; not in distress. Denies fever, chills, chest pain, shortness of breath, abdominal pain or urinary symptoms. No significant overnight events Review of Systems Review of Systems: All systems reviewed & are unremarkable except as noted in Subjective Physical Exam Physical Exam: Physical Exam: Vitals signs as noted above General Appearance:Morbidly Obese, no apparent distress Head: Bruises present on the nose Respiratory/Chest: Decreased breath sounds, CTA, No accessory muscle use Cardiovascular: S1, S2, No murmur Abdomen/GI:Soft, Non tender, Bowel sounds present Extremities/Musculoskeletal:normal inspection, chronic venous stasis changes, minimal pedal edema, left foot in dressing Neurologic/Psych:AAOX3, grossly no focal neurological deficits Skin: normal color, warm Results & Data Results & Data Vital Signs (Past 12 Hours) Vital Signs Temp Pulse Resp BP Pulse Ox O2 Del Method O2 Flow Rate 10/09/23 09:00 Room Air 10/09/23 07:34 68 16 93 Room Air 10/09/23 06:54 36.6 C 67 18 146/69 H 96 Nasal Cannula 3.5 (2) Acute renal failure (ARF) Acute renal failure type: unspecified Qualified Code(s): N17.9 - Acute kidney failure, unspecified (4) AMS (altered mental status) Altered mental status type: unspecified Qualified Code(s): R41.82 - Altered mental status, unspecified
[2023-10-09] MEDS: buprenorphine HCL 2 MG SUBL SL SCH (14:00)
[2023-10-09] MEDS: WARFARIN SOD 4 MG TAB PO SCH (16:21)
[2023-10-09] MEDS: PROMETHAZINE HCL 12.5 MG in SODIUM CHLORIDE 0.9% 50 ML IV PRN (18:32)
[2023-10-09] MEDS ORDERED: ACETAMINOPHEN 1,000 MG/100 ML VIAL IV STA (21:07)
[2023-10-09] MEDS: LANTUS PER UNIT CHARGE SC SCH (21:09)
[2023-10-09] MEDS: DOCUSATE SODIUM 100 MG CAP PO PRN (21:10)
[2023-10-10] MEDS: POLYETHYLENE (MIRALAX) 17 GM PACK PO SCH ×4 (00:08→18:03)
[2023-10-10] MEDS: MICONAZOLE NITRATE POWDER 85 GM EXT SCH ×4 (00:08→16:49)
[2023-10-10] MEDS: PANTOprazole 40 MG TAB PO SCH (05:10)
[2023-10-10] MEDS: BUDESONIDE 0.5 MG/2 ML VIAL (PULMICORT) INH SCH ×2 (07:20→20:13)
[2023-10-10] MEDS: ATORVASTATIN 40 MG TAB PO SCH (07:50)
[2023-10-10] MEDS: METOPROLOL SUCC 25MG EXT REL TAB PO SCH ×2 (07:50→21:31)
[2023-10-10] MEDS: SENNA 8.6 MG TAB PO SCH ×2 (07:50→21:32)
[2023-10-10] MEDS: FERROUS SULFATE 325 MG TAB PO SCH (07:50)
[2023-10-10] MEDS: ASPIRIN 81 MG ECTAB PO SCH (07:50)
[2023-10-10] MEDS: SPIRONOLACTONE 25 MG TAB PO SCH (07:51)
[2023-10-10] MEDS: ISOSORBIDE DINITRATE 10 MG TAB PO SCH (07:51)
[2023-10-10] MEDS: TORSEMIDE 10 MG TAB PO SCH (07:51)
[2023-10-10] MEDS: MAGNESIUM OXIDE 400 MG TAB PO SCH (07:51)
[2023-10-10] MEDS: FOLIC ACID 1 MG TAB PO SCH (07:51)
[2023-10-10] MEDS: DULoxetine HCL 60 MG CAP PO SCH (07:51)
[2023-10-10] MEDS: FINASTERIDE 5 MG TAB PO SCH (07:51)
[2023-10-10] MEDS: NICOTINE 14 MG/24 HR PATCH TD SCH (07:51)
[2023-10-10] MEDS: GABAPENTIN 800 MG TAB PO SCH ×3 (07:52→21:30)
[2023-10-10] MEDS: ERGOCALCIFEROL 50,000 UNITS 1250 MCG CAP PO SCH (07:52)
[2023-10-10] MEDS: TAMSULOSIN HCL 0.4 MG CAP PO SCH (07:52)
[2023-10-10] MEDS: guaiFENesin 600 MG TABCR PO SCH ×2 (07:52→21:31)
[2023-10-10] MEDS: MUPIROCIN 2% OINT 22 GM TUBE EXT SCH ×2 (07:53→21:32)
[2023-10-10] MEDS: FLUTICASONE PROPIONATE NA SPR 16 GM BTL SCH (07:54)
[2023-10-10] MEDS: FLUTICASONE/VILANTEROL 100/25MCG 14 PUFFS/INHALER INH SCH (08:02)
[2023-10-10 08:49] LABS: Basophils # (auto) 0.06 K/uL (0.00-0.20); Basophils % (auto) 0.4 %; Eosinophils # (auto) 0.78 K/uL (0.00-0.50); Eosinophils % (auto) 5.6 %; Hematocrit (blood only) 37.7 % (42.0-52.0); Immature Granulocytes % (auto) 0.7 %; Lymphocytes % (auto) 21.6 %; Mean Corpuscular Hemoglobin 25.6 pg (25.0-34.0); Mean Corpuscular Hgb Conc 31.8 g/dL (32.0-36.0); Mean Corpuscular Volume 80.4 fL (80.0-100.0); Mean Platelet Volume 10.6 fL (9.4-12.4); Monocytes # (auto) 0.78 K/uL (0.11-0.59); Monocytes % (auto) 5.6 %; Neutrophils # (auto) 9.14 K/uL (1.40-6.50); Neutrophils % (auto) 66.1 %; Platelet Count 299 K/uL (130-400); RDW Coefficient of Variation 20.4 % (11.5-14.5); RDW Standard Deviation 58.3 fL (36.4-46.3); Red Blood Count 4.69 M/uL (4.70-6.10); White Blood Count 13.86 K/ul (4.8-10.8)
[2023-10-10 09:04] LABS: Calcium 9.9 mg/dl (8.6-10.3); Creatinine Clr Calc Pharmacy 171.7 ml/min; Est GFR (African American) 112.6 ml/min; Est GFR (Non-African American) 97.2 ml/min; Potassium 3.7 mmol/L (3.5-5.1)
[2023-10-10] MEDS: FAMOTIDINE 20 MG TAB PO SCH (09:04)
[2023-10-10] MEDS: POTASSIUM CHLORIDE CRTAB 20 MEQ TABCR PO SCH ×4 (09:04→21:35)
[2023-10-10] MEDS: buprenorphine HCL 8 MG SUBL SL SCH ×2 (09:04→21:28)
[2023-10-10] MEDS: LORazepam 0.5 MG TAB PO PRN ×2 (09:04→21:28)
[2023-10-10] MEDS: bisacodyL 5 MG TABEC PO SCH (09:04)
[2023-10-10] MEDS: INSULIN ASPART PER UNIT CHARGE SC SCH ×4 (09:05→22:02)
[2023-10-10] MEDS: ACETAMINOPHEN 1,000 MG/100 ML VIAL IV PRN (09:14)
[2023-10-10 09:37] LABS: INR 2.5 (0.9-1.1); Prothrombin Time 25.6 Seconds (9.0-12.0)
[2023-10-10 09:38] LABS: Anisocytosis Present; Ovalocytes 1+
[2023-10-10] MEDS: COUGH DROP (SUGAR FREE) LOZ 24 LOZ/1 BOX BUCCAL PRN (13:16)
[2023-10-10] MEDS: buprenorphine HCL 2 MG SUBL SL SCH (13:25)
--- NOTE | 2023-10-10 13:52 | Hospitalist Progress Note ---
Date of Service October 10, 2023 Assessment & Plan (1) Acute UTI (urinary tract infection): (2) Acute renal failure (ARF): (3) Elevated INR: (4) AMS (altered mental status): Plan Mr. Milner is a 53 year old gentleman with a past medical history significant for chronic diastolic heart failure, CAD/STEMI, prior subdural hematoma/subarachnoid hemorrhage, hypertension, hyperlipidemia, COPD, recurrent PE on Coumadin, DM 2,recurrent UTIs secondary to BPH/chronic urinary retention indwelling Lloyd catheter, chronic anemia, chronic pain on buprenorphine, hx MRSA/VRE who presented on 09/19 with AMS and decreased urine output. Patient was admitted for evaluation and management of MAHAMED in setting of CAUTI. CAUTI--POA Chronic urinary retention indwelling Lloyd catheter Possible sepsis treated and resolved Patient presented with altered mental status and decreased urine output. Blood culture no growth till date Urine culture--mixed isabel Normal lactic acid Completed Levaquin for 5 day course Catheter exchanged while in ED 09/19 Urology signed off -Patient failed previous void trial secondary to habitus -Encouraged patient to follow up with urology in 3-4 weeks for exchange prior to infection setting in Need follow up with Urology on discharge PT OT recommends rehab Waiting for rehab placement Hypokalemia Likely due to diuretics Monitor and replace electrolytes as needed On KCl 20 mg 4 times daily. Syncopal episode likely vasovagal in setting of bowel movement Head CT: negative acute abnormality Interrogate loop recorder per pt request No recurrence of issues Left great toe injury 2/2 to fall LLE pain Knee X ray:No fracture or dislocation within the left knee. Diffuse soft tissue edema. Foot X ray:Soft tissue injury/edema in the first toe with no fracture identified. Dorsal heel spur. Continue wound care Fall precautions Continue PT OT: Recommends rehab Acute metabolic encephalopathy secondary to above: resolved Reported history of falls --CT head:No evidence of acute intracranial pathology. --CXR:Cardiomegaly with no acute cardiopulmonary abnormality identified. Fall precautions PT OT as able Mental status back to baseline No acute issues currently MAHAMED:resolved, likely prerenal Cr 4.82>4.2>2.5 >1.0 Avoid nephrotoxic agents as able Monitor renal function Discontinued IV fluids Continue home diuretics Vitamin D Deficiency --Vit D level 9 Started on Q7D 50,000U D2 Hypokalemia Replete electrolytes as needed Fecal retention -KUB:Gaseous distention of the stomach with nonobstructive bowel gas pattern. Moderate to extensive colonic fecal retention. Continue bowel regimen Encouraged to ambulate as able Recurrent PE on coumadin Supratherapeutic INR on admission Received Vit K 5mg INR within therapeutic range Needs follow-up with Coumadin clinic on discharge COPD Ongoing tobacco use disorder Currently no signs of exacerbation Continue home inhalers Chronic pain syndrome On Suboxone Chronic diastolic CHF Monitor volume status Continue diuretics Hyperlipidemia on statin BPH Continue Proscar, Flomax Morbid obesity BMI 60.8 DVT Px: Coumadin CODE STATUS Full Code Disposition PT OT recommends rehab Case management to help with discharge planning. Please note the above document was generated using voice recognition software. It may contain grammatical, syntax or spelling errors. Any formal questions or concerns about the content, text or information contained within the body of this dictation should be directly addressed to the provider for clarification Admission and Anticipated Discharge Date Admission Date: September 19, 2023 Subjective Patient seen and examined at bedside. He is alert oriented x 3 He denies fever, chills, shortness of breath, chest pain or palpitation. No significant overnight events Review of Systems Review of Systems: All systems reviewed & are unremarkable except as noted in Subjective Physical Exam Physical Exam: Physical Exam: Vitals signs as noted above General Appearance:Morbidly Obese, no apparent distress Head: Bruises present on the nose Respiratory/Chest: Decreased breath sounds, CTA, No accessory muscle use Cardiovascular: S1, S2, No murmur Abdomen/GI:Soft, Non tender, Bowel sounds present Extremities/Musculoskeletal:normal inspection, chronic venous stasis changes, minimal pedal edema, left foot in dressing Neurologic/Psych:AAOX3, grossly no focal neurological deficits Skin: normal color, warm Results & Data Results & Data Vital Signs (Past 12 Hours) Vital Signs Temp Pulse Resp BP Pulse Ox O2 Del Method 10/10/23 09:47 Room Air 10/10/23 07:52 36.5 C 65 16 132/72 93 Room Air (2) Acute renal failure (ARF) Acute renal failure type: unspecified Qualified Code(s): N17.9 - Acute kidney failure, unspecified (4) AMS (altered mental status) Altered mental status type: unspecified Qualified Code(s): R41.82 - Altered mental status, unspecified
[2023-10-10] MEDS: DICLOFENAC SOD 1% GEL 100 GM TUBE EXT PRN (16:23)
[2023-10-10] MEDS: WARFARIN SOD 4 MG TAB PO SCH (16:24)
[2023-10-10] MEDS: CYCLOBENZAPRINE HCL 10 MG TAB PO PRN (21:28)
[2023-10-10] MEDS: DOCUSATE SODIUM 100 MG CAP PO PRN (21:29)
[2023-10-10] MEDS: LANTUS PER UNIT CHARGE SC SCH (22:01)
[2023-10-10] MEDS ORDERED: ACETAMINOPHEN 1,000 MG/100 ML VIAL IV STA (22:23)
[2023-10-11] MEDS: MICONAZOLE NITRATE POWDER 85 GM EXT SCH ×4 (00:14→16:44)
[2023-10-11] MEDS: POLYETHYLENE (MIRALAX) 17 GM PACK PO SCH ×4 (02:03→20:58)
[2023-10-11] MEDS: PANTOprazole 40 MG TAB PO SCH (05:55)
[2023-10-11 06:09] LABS: Basophils # (auto) 0.06 K/uL (0.00-0.20); Basophils % (auto) 0.5 %; Eosinophils # (auto) 0.68 K/uL (0.00-0.50); Eosinophils % (auto) 5.3 %; Hematocrit (blood only) 38.1 % (42.0-52.0); Hemoglobin 12.1 g/dl (14.0-18.0); Immature Granulocytes # (auto) 0.11 K/uL (0.01-0.20); Immature Granulocytes % (auto) 0.9 %; Lymphocytes # (auto) 2.78 K/uL (1.20-3.40); Lymphocytes % (auto) 21.5 %; Mean Corpuscular Hemoglobin 25.2 pg (25.0-34.0); Mean Corpuscular Hgb Conc 31.8 g/dL (32.0-36.0); Mean Corpuscular Volume 79.4 fL (80.0-100.0); Mean Platelet Volume 10.2 fL (9.4-12.4); Monocytes # (auto) 0.77 K/uL (0.11-0.59); Neutrophils # (auto) 8.51 K/uL (1.40-6.50); Neutrophils % (auto) 65.8 %; Platelet Count 292 K/uL (130-400); RDW Coefficient of Variation 20.3 % (11.5-14.5); RDW Standard Deviation 57.3 fL (36.4-46.3); White Blood Count 12.91 K/ul (4.8-10.8)
[2023-10-11 06:16] LABS: BUN Creatinine Ratio 20.2 (10-20); Calcium 9.8 mg/dl (8.6-10.3); Creatinine Clr Calc Pharmacy 156.1 ml/min; Est GFR (African American) 100.4 ml/min; Est GFR (Non-African American) 86.6 ml/min; Potassium 3.4 mmol/L (3.5-5.1)
[2023-10-11 06:34] LABS: INR 2.7 (0.9-1.1); Prothrombin Time 27.6 Seconds (9.0-12.0)
[2023-10-11 06:43] LABS: Anisocytosis Present
[2023-10-11] MEDS: BUDESONIDE 0.5 MG/2 ML VIAL (PULMICORT) INH SCH ×2 (07:40→19:23)
[2023-10-11] MEDS ORDERED: POTASSIUM CHLORIDE CRTAB 20 MEQ TABCR PO STA (07:47)
[2023-10-11] MEDS: MAGNESIUM OXIDE 400 MG TAB PO SCH (07:59)
[2023-10-11] MEDS: DULoxetine HCL 60 MG CAP PO SCH (07:59)
[2023-10-11] MEDS: GABAPENTIN 800 MG TAB PO SCH ×3 (08:00→21:12)
[2023-10-11] MEDS: SENNA 8.6 MG TAB PO SCH ×2 (08:00→21:12)
[2023-10-11] MEDS: TAMSULOSIN HCL 0.4 MG CAP PO SCH (08:00)
[2023-10-11] MEDS: SPIRONOLACTONE 25 MG TAB PO SCH (08:00)
[2023-10-11] MEDS: METOPROLOL SUCC 25MG EXT REL TAB PO SCH ×2 (08:00→21:15)
[2023-10-11] MEDS: ASPIRIN 81 MG ECTAB PO SCH (08:00)
[2023-10-11] MEDS: FOLIC ACID 1 MG TAB PO SCH (08:00)
[2023-10-11] MEDS: ISOSORBIDE DINITRATE 10 MG TAB PO SCH (08:03)
[2023-10-11] MEDS: guaiFENesin 600 MG TABCR PO SCH ×2 (08:03→21:12)
[2023-10-11] MEDS: FERROUS SULFATE 325 MG TAB PO SCH (08:03)
[2023-10-11] MEDS: FINASTERIDE 5 MG TAB PO SCH (08:03)
[2023-10-11] MEDS: ATORVASTATIN 40 MG TAB PO SCH (08:03)
[2023-10-11] MEDS: NICOTINE 14 MG/24 HR PATCH TD SCH (08:04)
[2023-10-11] MEDS: TORSEMIDE 10 MG TAB PO SCH (08:04)
[2023-10-11] MEDS: FLUTICASONE PROPIONATE NA SPR 16 GM BTL SCH (08:07)
[2023-10-11] MEDS: MUPIROCIN 2% OINT 22 GM TUBE EXT SCH (08:07)
[2023-10-11] MEDS: FLUTICASONE/VILANTEROL 100/25MCG 14 PUFFS/INHALER INH SCH (08:08)
[2023-10-11] MEDS: INSULIN ASPART PER UNIT CHARGE SC SCH ×4 (08:09→21:38)
[2023-10-11] MEDS: CYCLOBENZAPRINE HCL 10 MG TAB PO PRN ×2 (08:17→21:10)
[2023-10-11] MEDS: POTASSIUM CHLORIDE CRTAB 20 MEQ TABCR PO SCH ×4 (08:17→21:10)
[2023-10-11] MEDS: FAMOTIDINE 20 MG TAB PO SCH (08:17)
[2023-10-11] MEDS: buprenorphine HCL 8 MG SUBL SL SCH ×2 (08:17→21:10)
[2023-10-11] MEDS: bisacodyL 5 MG TABEC PO SCH (08:18)
[2023-10-11] MEDS: COUGH DROP (SUGAR FREE) LOZ 24 LOZ/1 BOX BUCCAL PRN (08:26)
--- NOTE | 2023-10-11 11:22 | Hospitalist Progress Note ---
Date of Service October 11, 2023 Assessment & Plan (1) Acute UTI (urinary tract infection): (2) Acute renal failure (ARF): (3) Elevated INR: (4) AMS (altered mental status): Plan Mr. Milner is a 53 year old gentleman with a past medical history significant for chronic diastolic heart failure, CAD/STEMI, prior subdural hematoma/subarachnoid hemorrhage, hypertension, hyperlipidemia, COPD, recurrent PE on Coumadin, DM 2,recurrent UTIs secondary to BPH/chronic urinary retention indwelling Lloyd catheter, chronic anemia, chronic pain on buprenorphine, hx MRSA/VRE who presented on 09/19 with AMS and decreased urine output. Patient was admitted for evaluation and management of MAHAMED in setting of CAUTI. CAUTI--POA Chronic urinary retention indwelling Lloyd catheter Possible sepsis treated and resolved Patient presented with altered mental status and decreased urine output. Blood culture no growth till date Urine culture--mixed isabel Normal lactic acid Completed Levaquin for 5 day course Catheter exchanged while in ED 09/19, will have nursing exchange today 10/11 in prep for d/c tomorrow Urology signed off -Patient failed previous void trial secondary to habitus -Encouraged patient to follow up with urology in 3-4 weeks for exchange prior to infection setting in Need follow up with Urology on discharge Hypokalemia Likely due to diuretics Monitor and replace electrolytes as needed On KCl 20 mg 4 times daily. Syncopal episode likely vasovagal in setting of bowel movement Head CT: negative acute abnormality Interrogate loop recorder per pt request No recurrence of issues Left great toe injury 2/2 to fall LLE pain Knee X ray:No fracture or dislocation within the left knee. Diffuse soft tissue edema. Foot X ray:Soft tissue injury/edema in the first toe with no fracture id entified. Dorsal heel spur. Continue wound care Fall precautions Continue PT OT: Recommends rehab Acute metabolic encephalopathy secondary to above: resolved Reported history of falls --CT head:No evidence of acute intracranial pathology. --CXR:Cardiomegaly with no acute cardiopulmonary abnormality identified. Fall precautions PT OT as able Mental status back to baseline No acute issues currently MAHAMED:resolved, likely prerenal Cr 4.82>4.2>2.5 >1.0 Avoid nephrotoxic agents as able Monitor renal function Discontinued IV fluids Continue home diuretics Vitamin D Deficiency --Vit D level 9 Started on Q7D 50,000U D2 Hypokalemia Replete electrolytes as needed Fecal retention -KUB:Gaseous distention of the stomach with nonobstructive bowel gas pattern. Moderate to extensive colonic fecal retention. Continue bowel regimen Encouraged to ambulate as able Recurrent PE on coumadin Supratherapeutic INR on admission INR within therapeutic range on 4mg daily Needs follow-up with Coumadin clinic on discharge COPD Ongoing tobacco use disorder Currently no signs of exacerbation Continue home inhalers Chronic pain syndrome On Suboxone Chronic diastolic CHF Monitor volume status Continue diuretics Hyperlipidemia on statin BPH Continue Proscar, Flomax Morbid obesity BMI 60.8 DVT Px: Coumadin CODE STATUS Full Code Disposition PT OT recommends rehab; however, no accepting SNFS at this time, pt wishes to return home tomorrow as he has transportation at this time Case management to help with discharge planning. Pt was seen and examined in collaboration with DR. Rojas, please see addendum A total of 41 was spent coordinating, documenting, and providing care for this patient excluding time spent in the performance of separately billed services. This included personally viewing all current laboratories and imaging studies, medication reconciliation, outpatient chart review, and discussion with specialists. Admission and Anticipated Discharge Date Admission Date: September 19, 2023 Supervising Physician Co-Signing Physician Notes Patient seen and examined at bedside. Discussed with above provider. Patient comfortable; not in distress. Reports that he is feeling closer to his baseline. Possible DC in a.m. to home. Subjective Patient was seen and examined in room 314. [facility]. States he has transportation set to be discharged tomorrow. He is feeling improved but still has L knee and foot pain. His toe is feeling better. Continues to have L shoulder/neck pain. Appetite is good. Denies f/c/s, chest pain, sob, n/v/d, abd pain. Review of Systems Review of Systems: All systems reviewed & are unremarkable except as noted in HPI & below Physical Exam Physical Exam: Gen: WD/WN, M, morbidly obese, NAD, A&O x3 HEENT: Normocephalic, atraumatic, conjunctivae moist, sclerae anicteric, mucous membranes moist. Lung: Clear to Auscultation bilaterally, diminished b/l due to body habitus, b/l exp wheeze no rales/rhonchi Heart: Regular rate, regular rhythm, no murmurs, rubs, or gallops Abdomen: Soft, NT, ND +BS x 4 Extremities: b/l pedal edema, b/l venous stasis changes, b/l lymphedema Skin: Warm, no rash, negative turgor. Results & Data Results & Data Vital Signs (Past 12 Hours) Vital Signs Temp Pulse Resp BP Pulse Ox O2 Del Method 10/11/23 08:30 Room Air 10/11/23 07:41 66 16 96 Room Air 10/11/23 06:58 36.4 C L 63 18 110/68 92 Room Air Laboratory Results I have independently reviewed and interpreted patient's lab including CBC, BMP,, PT/INR Short CBC 10/11/23 Range/Units 05:32 WBC 12.91 H (4.8-10.8) K/ul Hgb 12.1 L (14.0-18.0) g/dl Hct 38.1 L (42.0-52.0) % Plt Count 292 (130-400) K/uL BMP 10/11/23 05:32 Sodium 137 Potassium 3.4 L Chloride 96 L Carbon Dioxide 34 H BUN 20 Creatinine 0.99 Glucose 171 H Calcium 9.8 Medications Administered Current Inpatient Medications Albuterol (Albuterol Hfa 8 Gm Inhaler) 2 puffs INH Q4 PRN PRN Reason: Dyspnea Stop: 10/20/23 01:01 Albuterol (Albut/Ipratrop 3mg/0.5mg Neb 3 Ml Vial) 3 ml INH TIDR PRN; Protocol PRN Reason: Shortness Of Breath Or Wheezing Stop: 10/20/23 06:59 Aspirin (A[facility]in 81 Mg Ectab) [facility] Stop[facility] 10/20/23 08:59 Last Admin: 10/11/23 08:00 Dose: 81 mg Atorvastatin Calcium (Atorvastatin 40 Mg Tab) 80 mg PO QAM [facility] Stop: 10/20/23 08:59 Last Admin: 10/11/23 08:03 Dose: 80 mg Benzonatate (Benzonatate 100 Mg Capsule) 100 mg PO TID PRN PRN Reason: cough Stop: 10/20/23 01:01 Last Admin: 09/30/23 07:54 Dose: 100 mg Bisacodyl (Bisacodyl 10 Mg Supp) 10 mg HI DAILY PRN PRN Reason: Constipation Stop: 10/21/23 16:53 Last Admin: 09/22/23 17:39 Dose: 10 mg Bisacodyl (Bisacodyl 5 Mg Tabec) 5 mg PO DAILY [facility] Stop: 10/25/23 11:29 Last Admin: 10/11/23 08:18 Dose: 5 mg Budesonide (Budesonide 0.5 Mg/2 Ml Vial (Pulmicort)) 0.5 mg INH Q12R [facility] Stop: 10/20/23 06:59 Last Admin: 10/11/23 07:40 Dose: 0.5 mg Buprenorphine HCl (Buprenorphine Hcl 8 Mg Subl) 8 mg SL BID [facility] Stop: 10/20/23 08:59 Last Admin: 10/11/23 08:17 Dose: 8 mg Buprenorphine HCl (Buprenorphine Hcl 2 Mg Subl) 4 mg SL DAILY@1400 [facility] Stop: 10/20/23 13:59 Last Admin: 10/10/23 13:25 Dose: 4 mg Cyclobenzaprine HCl (Cyclobenzaprine Hcl 10 Mg Tab) 10 mg PO BID PRN PRN Reason: Muscle Spasm Stop: 10/20/23 01:01 Last Admin: 10/11/23 08:17 Dose: 10 mg Dextrose (Dextrose 50% 50 Ml Syringe) 25 - 50 ml IV UD PRN; Protocol PRN Reason: Hypoglycemia Protocol Stop: 10/20/23 09:38 Diclofenac Sodium (Diclofenac Sod 1% Gel 100 Gm Tube) 2 gm EXT BID PRN; Protocol PRN Reason: Pain Stop: 11/04/23 12:14 Last Admin: 10/10/23 16:23 Dose: 2 gm Docusate Sodium (Docusate Sodium 100 Mg Cap) 100 mg PO BID PRN PRN Reason: Constipation Stop: 10/20/23 01:01 Last Admin: 10/10/23 21:29 Dose: 100 mg Duloxetine HCl (Duloxetine Hcl 60 Mg Cap) 60 mg PO DAILY [facility] Stop: 10/20/23 08:59 Last Admin: 10/11/23 07:59 Dose: 60 mg Ergocalciferol (Ergocalciferol 50,000 Units 1250 Mcg Cap) 50,000 units PO Q7D [facility] Stop: 10/26/23 08:59 Last Admin: 10/10/23 07:52 Dose: 50,000 units Famotidine (Famotidine 20 Mg Tab) 20 mg PO DAILY [facility] Stop: 10/20/23 08:59 Last Admin: 10/11/23 08:17 Dose: 20 mg Ferrous Sulfate (Ferrous Sulfate 325 Mg Tab) 325 mg PO QAM [facility] Stop: 10/20/23 08:59 Last Admin: 10/11/23 08:03 Dose: 325 mg Finasteride (Finasteride 5 Mg Tab) 5 mg PO QAM [facility] Stop: 10/20/23 08:59 Last Admin: 10/11/23 08:03 Dose: 5 mg Fluticasone Propionate (Fluticasone Propionate Na Spr 16 Gm Btl) 2 sprays NA DAILY [facility] Stop: 10/20/23 08:59 Last Admin: 10/11/23 08:07 Dose: 2 sprays Fluticasone/Vilanterol (Fluticasone/Vilanterol 100/25mcg 14 Puffs/Inhaler) 1 puffs INH DAILY [facility] Stop: 10/20/23 08:59 Last Admin: 10/11/23 08:08 Dose: 1 puffs Folic Acid (Folic Acid 1 Mg Tab) 1 mg PO QAM [facility] Stop: 10/20/23 08:59 Last Admin: 10/11/23 08:00 Dose: 1 mg Gabapentin (Gabapentin 800 Mg Tab) 800 mg PO TID [facility] Stop: 10/20/23 08:59 Last Admin: 10/11/23 08:00 Dose: 800 mg Glucagon (Glucagon For Inj 1 Mg Vial) 1 mg SQ UD PRN; Protocol PRN Reason: Hypoglycemia Protocol Stop: 10/20/23 09:38 Glucose (Glucose 10 Tab/Tube) 4 - 8 tab PO UD PRN; Protocol PRN Reason: Hypoglycemia Treatment Stop: 10/20/23 09:38 Glucose (Glucose 40% Gel 15 Gm Tube) 15 - 30 gm PO UD PRN; Protocol PRN Reason: Hypoglycemia Protocol Stop: 10/20/23 09:38 Guaifenesin (Guaifenesin 600 Mg Tabcr) 600 mg PO Q12 [facility] Stop: 11/03/23 14:24 Last Admin: 10/11/23 08:03 Dose: 600 mg Promethazine HCl 12.5 mg/ (Sodium Chloride) 50.5 mls @ 202 mls/hr IV Q6H PRN PRN Reason: Nausea And Vomiting Stop: 10/20/23 19:54 Last Infusion: 10/09/23 18:48 Dose: Infused Insulin Aspart (Insulin Aspart Per Unit Charge) 0 units SC ACHS [facility] Stop: 10/20/23 11:29 Last Admin: 10/11/23 08:09 Dose: 10 units Insulin Glargine (Lantus Per Unit Charge) 50 units SC HS [facility] Stop: 10/20/23 20:59 Last Admin: 10/10/23 22:01 Dose: 50 units Isosorbide Dinitrate (Isosorbide Dinitrate 10 Mg Tab) 30 mg PO DAILY [facility] Stop: 10/20/23 08:59 Last Admin: 10/11/23 08:03 Dose: 30 mg Lorazepam (Lorazepam 0.5 Mg Tab) 0.5 mg PO TID PRN PRN Reason: Anxiety Stop: 11/03/23 20:26 Last Admin: 10/10/23 21:28 Dose: 0.5 mg Magnesium Oxide (Magnesium Oxide 400 Mg Tab) 400 mg PO DAILY [facility] Stop: 10/20/23 08:59 Last Admin: 10/11/23 07:59 Dose: 400 mg Menthol (Cough Drop (Sugar Free) Fernie 24 Fernie/1 Box) 1 fernie BUCCAL Q2H PRN PRN Reason: Sore Throat Stop: 10/29/23 09:12 Last Admin: 10/11/23 08:26 Dose: 1 fernie Metolazone (Metolazone 2.5 Mg Tablet) 2.5 mg PO MoWeFr@0830 [facility] Stop: 10/20/23 08:29 Last Admin: 10/08/23 07:54 Dose: 2.5 mg Metoprolol Succinate (Metoprolol Succ 25mg Ext Rel Tab) 75 mg PO BID [facility] Stop: 10/20/23 08:59 Last Admin: 10/11/23 08:00 Dose: 75 mg Miconazole Nitrate (Miconazole Nitrate Powder 85 Gm) 1 appln EXT Q6H [facility] Stop: 10/20/23 02:44 Last Admin: 10/11/23 05:51 Dose: Not Given Miscellaneous (Order Awaiting Action: Urea [Ureacin-20] 20 % Cream) 1 each N/A QS [facility] Stop: 10/20/23 07:59 Last Admin: 10/11/23 07:59 Dose: Not Given Miscellaneous (Carbohydrates For Hypoglycemia ) 15 - 30 gm PO UD PRN PRN Reason: Hypoglycemia Protocol Stop: 10/20/23 09:38 Miscellaneous (Remove Nicoderm Patch) 1 each N/A DAILY@0859 [facility] Stop: 10/23/23 08:58 Last Admin: 10/11/23 08:08 Dose: 1 each Mupirocin (Mupirocin 2% Oint 22 Gm Tube) 1 appln EXT BID [facility] Stop: 10/11/23 20:59 Last Admin: 10/11/23 08:07 Dose: 1 appln Nicotine (Nicotine 14 Mg/24 Hr Patch) 14 mg TD QAM [facility] Stop: 10/23/23 08:59 Last Admin: 10/11/23 08:04 Dose: 14 mg Nitroglycerin (Nitroglycerin Sl 0.4 Mg/Tab Tab) 0.4 mg SL Q5M PRN PRN Reason: CHEST PAIN Stop: 10/20/23 01:01 Ondansetron HCl (Ondansetron 4 Mg Od Tab) 4 mg PO Q8H PRN PRN Reason: Nausea And Vomiting Stop: 10/20/23 01:59 Last Admin: 09/21/23 04:09 Dose: 4 mg Ondansetron HCl (Ondansetron Inj 2 Mg/Ml 2 Ml Vial) 4 mg IV Q6H PRN PRN Reason: Nausea And Vomiting Stop: 10/21/23 12:44 Last Admin: 09/22/23 12:13 Dose: 4 mg Pantoprazole Sodium (Pantoprazole 40 Mg Tab) 40 mg PO DAILYBB [facility] Stop: 10/20/23 06:29 Last Admin: 10/11/23 05:55 Dose: 40 mg Polyethylene Glycol (Polyethylene (Miralax) 17 Gm Pack) 17 gm PO Q6H [facility] Stop: 10/25/23 12:59 Last Admin: 10/11/23 05:55 Dose: 17 gm Potassium Chloride (Potassium Chloride Crtab 20 Meq Tabcr) 20 meq PO QID [facility] Stop: 10/21/23 12:59 Last Admin: 10/11/23 08:17 Dose: 20 meq Sennosides (Senna 8.6 Mg Tab) 8.6 mg PO BID [facility] Stop: 10/25/23 20:59 Last Admin: 10/11/23 08:00 Dose: 8.6 mg Spironolactone (Spironolactone 25 Mg Tab) 25 mg PO QAM [facility] Stop: 10/20/23 08:59 Last Admin: 10/11/23 08:00 Dose: 25 mg Tamsulosin HCl (Tamsulosin Hcl 0.4 Mg Cap) 0.8 mg PO QAM [facility] Stop: 10/20/23 08:59 Last Admin: 10/11/23 08:00 Dose: 0.8 mg Torsemide (Torsemide 10 Mg Tab) 50 mg PO DAILY [facility] Stop: 10/20/23 08:59 Last Admin: 10/11/23 08:04 Dose: 50 mg Warfarin Sodium (Warfarin Sod 4 Mg Tab) 4 mg PO DAILY@1600 [facility] Stop: 11/03/23 15:59 Last Admin: 10/10/23 16:24 Dose: 4 mg (2) Acute renal failure (ARF) Acute renal failure type: unspecified Qualified Code(s): N17.9 - Acute kidney failure, unspecified (4) AMS (altered mental status) Altered mental status type: unspecified Qualified Code(s): R41.82 - Altered mental status, unspecified
[2023-10-11] MEDS: buprenorphine HCL 2 MG SUBL SL SCH (13:47)
[2023-10-11] MEDS: WARFARIN SOD 4 MG TAB PO SCH (16:44)
[2023-10-11] MEDS ORDERED: ACETAMINOPHEN 1,000 MG/100 ML VIAL IV ONE (21:00)
[2023-10-11] MEDS: LORazepam 0.5 MG TAB PO PRN (21:11)
[2023-10-11] MEDS: DOCUSATE SODIUM 100 MG CAP PO PRN (21:11)
[2023-10-11] MEDS: LANTUS PER UNIT CHARGE SC SCH (21:38)
[2023-10-12] MEDS: MICONAZOLE NITRATE POWDER 85 GM EXT SCH ×2 (00:11→06:06)
[2023-10-12] MEDS: POLYETHYLENE (MIRALAX) 17 GM PACK PO SCH ×2 (00:12→06:06)
[2023-10-12 05:55] LABS: Basophils # (auto) 0.07 K/uL (0.00-0.20); Basophils % (auto) 0.6 %; Eosinophils # (auto) 0.71 K/uL (0.00-0.50); Eosinophils % (auto) 5.6 %; Hematocrit (blood only) 35.8 % (42.0-52.0); Hemoglobin 11.5 g/dl (14.0-18.0); Immature Granulocytes # (auto) 0.07 K/uL (0.01-0.20); Immature Granulocytes % (auto) 0.6 %; Lymphocytes # (auto) 2.93 K/uL (1.20-3.40); Lymphocytes % (auto) 23.3 %; Mean Corpuscular Hemoglobin 25.4 pg (25.0-34.0); Mean Corpuscular Hgb Conc 32.1 g/dL (32.0-36.0); Mean Corpuscular Volume 79.2 fL (80.0-100.0); Mean Platelet Volume 10.1 fL (9.4-12.4); Monocytes # (auto) 0.83 K/uL (0.11-0.59); Monocytes % (auto) 6.6 %; Neutrophils # (auto) 7.98 K/uL (1.40-6.50); Neutrophils % (auto) 63.3 %; Platelet Count 265 K/uL (130-400); RDW Coefficient of Variation 20.3 % (11.5-14.5); RDW Standard Deviation 58.9 fL (36.4-46.3); Red Blood Count 4.52 M/uL (4.70-6.10); White Blood Count 12.59 K/ul (4.8-10.8)
[2023-10-12] MEDS: PANTOprazole 40 MG TAB PO SCH (06:06)
[2023-10-12 06:12] LABS: BUN Creatinine Ratio 19.4 (10-20); Calcium 9.7 mg/dl (8.6-10.3); Creatinine Clr Calc Pharmacy 150.1 ml/min; Est GFR (African American) 95.7 ml/min; Est GFR (Non-African American) 82.5 ml/min; Potassium 3.6 mmol/L (3.5-5.1)
[2023-10-12 06:21] LABS: INR 2.7 (0.9-1.1); Prothrombin Time 27.9 Seconds (9.0-12.0)
[2023-10-12 06:33] LABS: Anisocytosis Present
[2023-10-12] MEDS: BUDESONIDE 0.5 MG/2 ML VIAL (PULMICORT) INH SCH (07:24)
[2023-10-12] MEDS: NICOTINE 14 MG/24 HR PATCH TD SCH (08:48)
[2023-10-12] MEDS: SPIRONOLACTONE 25 MG TAB PO SCH (08:49)
[2023-10-12] MEDS: ATORVASTATIN 40 MG TAB PO SCH (08:49)
[2023-10-12] MEDS: FINASTERIDE 5 MG TAB PO SCH (08:49)
[2023-10-12] MEDS: FOLIC ACID 1 MG TAB PO SCH (08:50)
[2023-10-12] MEDS: bisacodyL 5 MG TABEC PO SCH (08:50)
[2023-10-12] MEDS: FAMOTIDINE 20 MG TAB PO SCH (08:50)
[2023-10-12] MEDS: DULoxetine HCL 60 MG CAP PO SCH (08:50)
[2023-10-12] MEDS: guaiFENesin 600 MG TABCR PO SCH (08:51)
[2023-10-12] MEDS: ISOSORBIDE DINITRATE 10 MG TAB PO SCH (08:51)
[2023-10-12] MEDS: POTASSIUM CHLORIDE CRTAB 20 MEQ TABCR PO SCH (08:51)
[2023-10-12] MEDS: MAGNESIUM OXIDE 400 MG TAB PO SCH (08:52)
[2023-10-12] MEDS: TORSEMIDE 10 MG TAB PO SCH (08:52)
[2023-10-12] MEDS: TAMSULOSIN HCL 0.4 MG CAP PO SCH (08:53)
[2023-10-12] MEDS: GABAPENTIN 800 MG TAB PO SCH (08:53)
[2023-10-12] MEDS: METOPROLOL SUCC 25MG EXT REL TAB PO SCH (08:53)
[2023-10-12] MEDS: FERROUS SULFATE 325 MG TAB PO SCH (08:53)
[2023-10-12] MEDS: SENNA 8.6 MG TAB PO SCH (08:54)
[2023-10-12] MEDS: ASPIRIN 81 MG ECTAB PO SCH (08:54)
[2023-10-12] MEDS: INSULIN ASPART PER UNIT CHARGE SC SCH (08:55)
[2023-10-12] MEDS: FLUTICASONE/VILANTEROL 100/25MCG 14 PUFFS/INHALER INH SCH (08:56)
[2023-10-12] MEDS: FLUTICASONE PROPIONATE NA SPR 16 GM BTL SCH (08:56)
[2023-10-12] MEDS: buprenorphine HCL 8 MG SUBL SL SCH (09:00)
--- NOTE | 2023-10-12 12:33 | Discharge Summary ---
Discharge Summary Date of Service October 12, 2023 Notes For Next Care Provider Please continue to monitor PT/INR. Pt needs to f/u with urology. Medication Changes From Visit Your Warfarin dose was changed to 4mg every day at 4 p.m. You will need to follow closely with [facility] Pharmacist regarding PT/INR and further dosing. Admission HPI Per Admitting Provider Pt is a 53yoM with PMhx significant for chronic diastolic heart failure, history CAD/STEMI, history subdural hematoma/subarachnoid hemorrhage, hypertension, hyperlipidemia, COPD, recurrent PE on Coumadin, DM 2,recurrent UTIs secondary to BPH/chronic urinary retention indwelling Lloyd catheter, chronic anemia, chronic pain on buprenorphine, hx MRSA/VRE admitted with AMS and decreased urinary output. Pt was not able to be awakened at the time of exam even with sternal rub. Per nursing who was later present in the room, pt was sitting up and talking earlier. Pt did not awaken for nursing either at the time of the exam. Discussed further with the patient's who stated that he started having the AMS right before elijah. Notes that he can sleep for extended periods of time and wakes up confused. Notes today that he was not able to recognize his sister who was visiting but as time passed was able to. Notes that he had about 2 or 3 falls today and unsure if he hit his head. Admission Exam Per Admitting Provider General: pt was sleeping soundly, could not be awakened even with sternal rub Skin: rash in groin area, skin changes noted on lower extremities Psych: Appropriate mood and affect Neuro: No gross deficits HEENT: NC/AT CV: RRR Resp: no increased effort of breathing Abdomen: Soft Extremities: scaly skin changes noted on lower extremities Principal Dx & Hospital Course #1 = Principal Diagnosis (1) Acute UTI (urinary tract infection): (2) Acute renal failure (ARF): (3) Elevated INR: (4) AMS (altered mental status): Plan Mr. Milner is a 53 year old gentleman with a past medical history significant for chronic diastolic heart failure, CAD/STEMI, prior subdural hematoma/subarachnoid hemorrhage, hypertension, hyperlipidemia, COPD, recurrent PE on Coumadin, DM 2,recurrent UTIs secondary to BPH/chronic urinary retention indwelling Lloyd catheter, chronic anemia, chronic pain on buprenorphine, hx MRSA/VRE who presented on 09/19 with AMS and decreased urine output. Patient was admitted for evaluation and management of MAHAMED in setting of CAUTI. CAUTI--POA Chronic urinary retention indwelling Lloyd catheter Possible sepsis treated and resolved Patient presented with altered mental status and decreased urine output. Blood culture no growth till date Urine culture--mixed isabel Normal lactic acid Completed Levaquin for 5 day course Catheter exchanged while in ED 09/19, and 10/11 Urology signed off -Patient failed previous void trial secondary to habitus -Encouraged patient to follow up with urology in 3-4 weeks for exchange prior to infection setting in Need follow up with Urology on discharge Hypokalemia Likely due to diuretics Monitor and replace electrolytes as needed On KCl 20 mg 4 times daily. Syncopal episode likely vasovagal in setting of bowel movement Head CT: negative acute abnormality Interrogate loop recorder per pt request No recurrence of issues Left great toe injury 2/2 to fall LLE pain Knee X ray:No fracture or dislocation within the left knee. Diffuse soft tissue edema. Foot X ray:Soft tissue injury/edema in the first toe with no fracture i dentified. Dorsal heel spur. Continue wound care Fall precautions Continue PT OT: Recommends rehab Acute metabolic encephalopathy secondary to above: resolved Reported history of falls --CT head:No evidence of acute intracranial pathology. --CXR:Cardiomegaly with no acute cardiopulmonary abnormality identified. Fall precautions PT OT as able Mental status back to baseline No acute issues currently MAHAMED:resolved, likely prerenal Cr 4.82>4.2>2.5 >1.0 Avoid nephrotoxic agents as able Monitor renal function Discontinued IV fluids Continue home diuretics Vitamin D Deficiency --Vit D level 9 Started on Q7D 50,000U D2 Fecal retention -KUB:Gaseous distention of the stomach with nonobstructive bowel gas pattern. Moderate to extensive colonic fecal retention. Continue bowel regimen Encouraged to ambulate as able Recurrent PE on coumadin Supratherapeutic INR on admission INR within therapeutic range on 4mg daily Needs follow-up with Coumadin clinic on discharge COPD Ongoing tobacco use disorder Currently no signs of exacerbation Continue home inhalers Chronic pain syndrome On Suboxone Chronic diastolic CHF Monitor volume status Continue diuretics Hyperlipidemia on statin BPH Continue Proscar, Flomax Morbid obesity BMI 60.8 DVT Px: Coumadin CODE STATUS Full Code Disposition PT OT recommends rehab; however, no accepting SNFS at this time, pt wishes to return home tomorrow as he has transportation at this time Case management to help with discharge planning. Discharge Exam Gen: WD/WN, M, morbidly obese, NAD, A&O x3 HEENT: Normocephalic, atraumatic, conjunctivae moist, sclerae anicteric, mucous membranes moist. Lung: Clear to Auscultation bilaterally, diminished b/l due to body habitus,no w/r/r Heart: Regular rate, regular rhythm, no murmurs, rubs, or gallops Abdomen: Soft, NT, ND +BS x 4 Extremities: b/l pedal edema, b/l venous stasis changes, b/l lymphedema Skin: Warm, no rash, negative turgor. Updated Medication List Medication Instructions Recorded Confirmed Type aspirin 81 mg tablet,delayed 81 mg PO QAM 11/17/18 09/19/23 History release (Ecotrin Low Strength) nitroglycerin 0.4 mg sublingual 0.4 mg sublingual DIRECTED PRN 12/09/18 09/19/23 History tablet (Nitrostat) CHEST PAIN nystatin 100,000 unit/gram topical 1 applic topical TID PRN Skin 12/09/18 09/19/23 History powder Irritation polyethylene glycol 3350 17 gram 17 g PO QAM PRN Constipation 12/09/18 09/19/23 History oral powder packet (Miralax) finasteride 5 mg tablet 5 mg PO QAM 03/03/19 09/19/23 History docusate sodium 100 mg capsule 100 mg PO BID PRN Constipation 08/11/19 09/19/23 History folic acid 1 mg tablet 1 mg PO QAM 12/07/19 09/19/23 History sennosides 8.6 mg tablet (senna) 8.6 mg PO DAILY PRN Constipation 12/07/19 09/19/23 History omeprazole 20 mg capsule,delayed 20 mg PO DAILYBB 04/14/20 09/19/23 History release gabapentin 800 mg tablet 800 mg PO TID 05/30/20 09/19/23 History duloxetine 60 mg capsule,delayed 60 mg PO DAILY 07/05/20 09/19/23 History release famotidine 20 mg tablet 20 mg PO DAILY 07/05/20 09/19/23 History glipizide 10 mg tablet 10 mg PO BID 01/12/21 09/19/23 History Lactobacillus acidoph-L.bulgaricus 1 tab PO TID #30 tabs 05/09/21 09/19/23 Rx 1 million cell chewable tablet (Lactinex) ferrous sulfate 325 mg (65 mg 325 mg PO QAM 10/24/21 09/19/23 History iron) tablet hydroxyzine HCl 25 mg tablet 25 mg PO QID PRN Anxiety 10/24/21 09/19/23 History urea 20 % topical cream 1 applic topical BID Dry Areas on 10/24/21 09/19/23 History (Ureacin-20) Soles and Legs ondansetron HCl 4 mg tablet 4 mg PO Q8H PRN NAUSEA/VOMITING 12/17/21 09/19/23 History insulin aspart U-100 100 unit/mL 0 sliding scale dose subcut TIDM 04/07/23 09/19/23 History (3 mL) subcutaneous pen (Novolog FlexPen U-100 Insulin aspart) insulin glargine 100 unit/mL 50 unit SC HS 04/13/23 09/19/23 History subcutaneous solution (Lantus U-100 Insulin) buprenorphine HCl 8 mg sublingual See Rx Instructions .Route .COMPLEX 05/04/23 09/19/23 History tablet fluticasone 250 mcg-salmeterol 50 1 inh inhalation BID 08/22/23 09/19/23 History mcg/dose blistr powdr for inhalation (Advair Diskus) fluticasone propionate 93 2 spray intranasal DAILY 08/22/23 09/19/23 History mcg/actuation breath activated aerosol ipratropium 0.5 mg-albuterol 3 mg 3 ml inhalation TID 08/22/23 09/19/23 History (2.5 mg base)/3 mL nebulization soln albuterol sulfate 90 mcg/actuation 2 puff inhalation Q4 PRN Dyspnea 09/26/23 Rx aerosol inhaler 30 days #1 inh atorvastatin 80 mg tablet 80 mg PO QAM #30 tabs 09/26/23 Rx cyclobenzaprine 10 mg tablet 10 mg PO BID PRN Muscle Spasm #60 09/26/23 Rx tabs ergocalciferol (vitamin D2) 1,250 50,000 unit PO Q7D #10 caps 09/26/23 Rx mcg (50,000 unit) capsule magnesium oxide 400 mg (241.3 mg 400 mg PO BID #60 tabs 09/26/23 Rx magnesium) tablet metolazone 2.5 mg tablet 2.5 mg PO 3XWK #30 tabs 09/26/23 Rx metoprolol succinate 50 mg 75 mg (1.5 x 50 mg) PO BID 30 days 09/26/23 Rx tablet,extended release 24 hr #180 tabs potassium chloride 20 mEq 20 meq PO TID #90 tabs 09/26/23 Rx tablet,extended release spironolactone 25 mg tablet 25 mg PO QAM #30 tabs 09/26/23 Rx tamsulosin 0.4 mg capsule (Flomax) 0.8 mg (2 x 0.4 mg) PO QAM #180 09/26/23 Rx caps torsemide 100 mg tablet 50 mg (1/2 x 100 mg) PO DAILY #30 09/26/23 Rx tabs isosorbide dinitrate 30 mg tablet 30 mg PO DAILY #30 tabs 10/11/23 09/19/23 Rx warfarin 2 mg tablet 4 mg (2 x 2 mg) PO DAILY@1600 #30 10/11/23 Rx tabs budesonide 0.5 mg/2 mL suspension 0.5 mg (2 mL) inhalation Q12H #60 10/12/23 Rx for nebulization mL Hospital Stay Data Consultations 09/19/23 19:13 ED Decision to Admit Stat 09/19/23 20:06 Consult Urology Routine 09/19/23 20:07 Consult Nephrology Routine Diagnostic Imagining Performed Chest X-Ray 09/19/23 17:13 SINGLE VIEW CHEST CLINICAL HISTORY: Atypical chest pain FINDINGS: An AP, portable, upright chest radiograph is compared to study dated 08/22/2023 and correlated with chest CT dated 08/23/2023. The examination is degraded by portable technique, large body habitus, and apical lordotic positioning. The heart is enlarged. The pulmonary vasculature is noncongested. There is bibasilar scarring/atelectasis. No airspace consolidation or large pleural effusion is identified. No pneumothorax is seen. There is chronic deformity of the left clavicle. IMPRESSION: Cardiomegaly with no acute cardiopulmonary abnormality identified. ACT 112: Negative or not required by law. Electronically signed by: Misael Lopez M.D. 09/19/2023 5:[address] 09/19/23 19:13 Exam(s): CT HEAD Without Contrast EXAM: CT Head Without Intravenous Contrast CLINICAL HISTORY: Reason for exam: ams. TECHNIQUE: Axial computed tomography images of the head/brain without intravenous contrast. CTDI is 46.2 mGy and DLP is 800.63 mGy-cm. Automated exposure control was utilized for the study. A dose lowering technique was utilized adhering to the principles of ALARA. COMPARISON: Comparison made to prior head CT from July 20, 2023. FINDINGS: Brain: Unremarkable. No hemorrhage. No significant white matter disease. No edema. Empty sella with enlarged diaphragmatic sellae. Ventricles: Unremarkable. No ventriculomegaly. Bones/joints: Unremarkable. No acute fracture. Soft tissues: Unremarkable. Sinuses: Chronic maxillary, right Frontal and ethmoid sinusitis. There is a small air-fluid level in the left maxillary sinus. There is No acute sinusitis. Mastoid air cells: Unremarkable as visualized. No mastoid effusion. IMPRESSION: No evidence of acute intracranial pathology. Electronically signed by: Akanksha Hernandez MD 09/20/23 02:50 AM KUB X-Ray 09/21/23 12:08 KUB HISTORY: Acute generalized abdominal pain with nausea and vomiting Intractable Nausea, Vomiting COMPARISON: CT abdomen and pelvis 07/20/2023 FINDINGS: Limited exam secondary to patient body habitus/morbid obesity. Cardiomegaly. Mild linear left subsegmental atelectasis versus scarring. Probable cardiac loop recorder device. There is moderate gaseous distention of the stomach. The bowel gas pattern is nonobstructive. Moderate to extensive colonic fecal retention. Renal shadows are obscured by bowel gas. The liver appears prominent in size. No renal calculi. No ureteral calculi. No pneumoperitoneum or pneumatosis. No fracture. IMPRESSION: 1. Gaseous distention of the stomach with nonobstructive bowel gas pattern. 2. Moderate to extensive colonic fecal retention. ACT 112: Negative or not required by law. The above report was generated using voice recognition software. It may contain grammatical, syntax or spelling errors. Electronically signed by: Shelton Apodaca M.D. 09/21/2023 1:53 PM Foot X-Ray 09/29/23 06:26 LEFT FOOT 3 VIEWS CLINICAL HISTORY: Fall. First toe injury. FINDINGS: 3 views of the left foot are compared to study dated 11/27/2022. The skeletal structures are well mineralized. Bandage material overlies the first toe end degrades fine bony detail. No acute fracture is clearly identified. The joint spaces of the foot appear maintained. There is soft tissue injury/edema suggested in the first toe. No radiodense foreign body is identified. There is also soft tissue edema in the forefoot. A dorsal heel spur is noted. IMPRESSION: 1. Soft tissue injury/edema in the first toe with no fracture identified. 2. Dorsal heel spur. Electronically signed by: Misael Lopez M.D. 09/29/2023 7:[address] 09/29/23 06:26 CT SCAN OF THE BRAIN WITHOUT IV CONTRAST CLINICAL HISTORY: Fall. Head injury. COMPARISON STUDY: CT of the brain dated 09/19/2023. TECHNIQUE: Unenhanced axial CT scan of the brain is performed from the vertex to the skull base. A dose lowering technique was utilized adhering to the principles of ALARA. CT DOSE: 800.63 mGy.cm FINDINGS: Brain parenchyma: The brain parenchyma is normal in appearance. There is no hemorrhage, mass effect, or evidence of acute territorial ischemia by CT criteria. [place]-white matter differentiation is preserved. No extra-axial fluid collection is seen. Ventricles, sulci, cisterns: Normal in configuration. Intracranial vasculature: The visualized intracranial vasculature at the skull base is normal in appearance. Calvarium: Unremarkable. Sinuses and mastoids: There is moderate mucosal thickening within the right maxillary antrum. Mild mucosal thickening is seen within the ethmoid and left maxillary sinuses. There is trace mucosal thickening within the sphenoid sinuses. There is a small left mastoid effusion. The right mastoid air cells are well pneumatized. Orbits: The bony orbits are grossly intact. IMPRESSION: There is no hemorrhage, mass effect, or evidence of acute territorial ischemia by CT criteria. ACT 112: Negative or not required by law. Electronically signed by: Misael Lopez M.D. 09/29/2023 7:22 AM Knee X-Ray 10/01/23 09:55 XR knee LT 3V CLINICAL HISTORY: Knee Pain, S/P Fall COMPARISON STUDY: Left knee 06/13/2021. FINDINGS: Rotated study. No definite fracture or dislocation within the left knee. No significant knee effusion. Diffuse soft tissue edema. No radiopaque foreign bodies. IMPRESSION: 1. No fracture or dislocation within the left knee. 2. Diffuse soft tissue edema. ACT 112: Negative or not required by law. Electronically signed by: Vidal Keller M.D. 10/01/2023 10:35 AM Pending Results Patient Have Any Pending Studies at Discharge: No Discharge Instructions Given to Patient (Per Discharging Provider) MEDICATION CHANGES: Your Warfarin dose was changed to 4mg every day at 4 p.m. You will need to follow closely with [facility] Pharmacist regarding PT/INR and further dosing. SUMMARY OF TEST RESULTS: You were admitted to the hospital due to a catheter associated urinary tract infection. You were treated with appropriate antibiotics. You had your Lloyd catheter exchanged on admission as well as on 10/11/2023. You had some electrolyte abnormalities and low potassium which were replaced while hospitalized. On admission you had acute kidney injury and this improved with IV fluid. You are found to have low vitamin D and this is currently being replaced. Your PT/INR was very elevated on admission and your Coumadin had to be held. On day of discharge you are medically stable to be discharged. PENDING TEST RESULTS: None RECOMMENDATIONS FOR FOLLOW-UP: Please follow up with your Primary care Provider as scheduled. It is recommended you have repeat BMP at your next follow up with your Primary Care Provider to check your potassium levels. You will need to follow up with [facility] to continue to manage your warfarin. Continue 4mg of warfarin until you have a repeat INR. Please follow up with urology upon discharge from hospital. Your catheter needs exchanged every 3 weeks to prevent infection. OTHER INSTRUCTIONS: Seek medical attention if you have: * temperature above 101 * chest pain or trouble breathing * abdominal pain, nausea, vomiting * diarrhea, dark stools or bloody stools * any unanswered questions or concerns Call 911 if symptoms are severe. Please take good care of yourself. It has been a pleasure taking care of you. Please take care of yourself. If you have any questions regarding your recent hospitalization please contact [facility] and request [facility] Juaquin @ [phone]. Angela Welch PA-C Total Time Total Time Spent Total Time Spent (In Minutes): 45 minutes
== END 2023-10-12 09:52 | disposition home or self-care (01) | DRG 698 ==
LOC: ED 17:01 → EDINP 19:52 → SUATTDRO 19:52 → 2S 09-20 01:03 → 3E 09-27 14:57

== ENCOUNTER 2023-11-22 19:29 | Observation (INO) ==
[2023-11-22 20:23] LABS: Basophils # (auto) 0.09 K/uL (0.00-0.20); Basophils % (auto) 0.5 %; Eosinophils # (auto) 0.15 K/uL (0.00-0.50); Eosinophils % (auto) 0.8 %; Hematocrit (blood only) 43.4 % (42.0-52.0); Hemoglobin 14.5 g/dl (14.0-18.0); Immature Granulocytes # (auto) 0.09 K/uL (0.01-0.20); Immature Granulocytes % (auto) 0.5 %; Lymphocytes # (auto) 3.11 K/uL (1.20-3.40); Lymphocytes % (auto) 15.7 %; Mean Corpuscular Hemoglobin 26.4 pg (25.0-34.0); Mean Corpuscular Hgb Conc 33.4 g/dL (32.0-36.0); Mean Corpuscular Volume 78.9 fL (80.0-100.0); Mean Platelet Volume 10.1 fL (9.4-12.4); Monocytes # (auto) 1.18 K/uL (0.11-0.59); Neutrophils # (auto) 15.19 K/uL (1.40-6.50); Neutrophils % (auto) 76.5 %; Platelet Count 351 K/uL (130-400); RDW Coefficient of Variation 19.6 % (11.5-14.5); RDW Standard Deviation 53.1 fL (36.4-46.3); White Blood Count 19.81 K/ul (4.8-10.8)
[2023-11-22 20:25] LABS: HCO3 VBG 43 mmol/L; Oxygen Saturation VBG < 60.0 %; PCO2 VBG 72 mmHg (38-50); PO2 VBG 20 mmHg; pH VBG 7.38 (7.36-7.41)
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
[2023-11-22 20:48] LABS: Albumin Level 4.2 gm/dl (3.4-5.0); BUN Creatinine Ratio 16.7 (10-20); Bilirubin,Total 0.9 mg/dl (0.2-1.0); Calcium 10.1 mg/dl (8.6-10.3); Creatinine Clr Calc Pharmacy 143.9 ml/min; Est GFR (African American) 96.8 ml/min; Est GFR (Non-African American) 83.5 ml/min; Globulin 4.3 gm/dl (2.5-4.0); Magnesium 1.8 mg/dl (1.7-2.4); Potassium 3.3 mmol/L (3.5-5.1); Total Protein 8.5 gm/dl (6.0-8.3); Troponin I High Sensitivity 6.3 pg/ml (0-20)
[2023-11-22] MEDS: ALBUT/IPRATROP 3MG/0.5MG NEB 3 ML VIAL NEB STA (20:52)
[2023-11-22] MEDS: DEXAMETHASONE SOD INJ 4 MG/ML VIAL IV STA (20:53)
[2023-11-22 20:59] LABS: INR 2.6 (0.9-1.1); Partial Thromboplastin Ratio 1.7; Partial Thromboplastin Time 47 Seconds (21-31); Prothrombin Time 26.7 Seconds (9.0-12.0)
[2023-11-22 21:02] LABS: Adenovirus PCR Not Detected (NotDetected); Bordetella parapertussis PCR Not Detected (NotDetected); Bordetella pertussis PCR Not Detected (NotDetected); Chlamydia pneumoniae PCR Not Detected (NotDetected); Coronavirus 229E PCR Not Detected (NotDetected); Coronavirus CoV-2 (COVID19)PCR Not Detected (NotDetected); Coronavirus HKU1 PCR Not Detected (NotDetected); Coronavirus NL63 PCR Not Detected (NotDetected); Coronavirus OC43PCR Not Detected (NotDetected); Human Metapneumovirus PCR Not Detected (NotDetected); Influenza A PCR Not Detected (NotDetected); Influenza B PCR Not Detected (NotDetected); Mycoplasma pneumoniae PCR Not Detected (NotDetected); Parainfluenza Virus 1 PCR Not Detected (NotDetected); Parainfluenza Virus 2 PCR Not Detected (NotDetected); Parainfluenza Virus 3 PCR Not Detected (NotDetected); Parainfluenza Virus 4 PCR Not Detected (NotDetected); Respiratory Syncytial VirusPCR Not Detected (NotDetected); Rhinovirus/Enterovirus PCR Not Detected (NotDetected)
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
[2023-11-23] MEDS ORDERED: ACETAMINOPHEN 325 MG TAB PO PRN (04:06)
[2023-11-23] MEDS ORDERED: DOCUSATE SODIUM 100 MG CAP PO PRN (04:06)
[2023-11-23] MEDS ORDERED: GLUCAGON FOR INJ 1 MG VIAL SQ PRN (04:06)
[2023-11-23] MEDS ORDERED: GLUCOSE 10 TAB/TUBE PO PRN (04:06)
[2023-11-23] MEDS ORDERED: CARBOHYDRATES FOR HYPOGLYCEMIA PO PRN (04:06)
[2023-11-23] MEDS ORDERED: ALBUTEROL HFA 8 GM INHALER INH PRN (04:06)
[2023-11-23] MEDS ORDERED: DEXTROSE 50% 50 ML SYRINGE IV PRN (04:06)
[2023-11-23] MEDS ORDERED: hydrOXYzine HCl 25 MG TAB PO PRN (04:06)
[2023-11-23] MEDS ORDERED: POLYETHYLENE (MIRALAX) 17 GM PACK PO PRN ×2 (04:06)
[2023-11-23] MEDS ORDERED: NITROGLYCERIN SL 0.4 MG/TAB TAB SL PRN (04:06)
[2023-11-23] MEDS ORDERED: GLUCOSE 40% GEL 15 GM TUBE PO PRN (04:06)
[2023-11-23] MEDS ORDERED: SENNA 8.6 MG TAB PO PRN (04:06)
[2023-11-23 04:47] LABS: Hematocrit (blood only) 43.8 % (42.0-52.0); Hemoglobin 14.2 g/dl (14.0-18.0); Mean Corpuscular Hemoglobin 25.9 pg (25.0-34.0); Mean Corpuscular Hgb Conc 32.4 g/dL (32.0-36.0); Mean Corpuscular Volume 79.9 fL (80.0-100.0); Mean Platelet Volume 9.9 fL (9.4-12.4); Platelet Count 326 K/uL (130-400); RDW Coefficient of Variation 18.9 % (11.5-14.5); RDW Standard Deviation 53.2 fL (36.4-46.3); Red Blood Count 5.48 M/uL (4.70-6.10); White Blood Count 18.19 K/ul (4.8-10.8)
[2023-11-23 05:08] LABS: BUN Creatinine Ratio 21.1 (10-20); Calcium 9.5 mg/dl (8.6-10.3); Est GFR (African American) 112.6 ml/min; Est GFR (Non-African American) 97.2 ml/min; Magnesium 1.7 mg/dl (1.7-2.4); Potassium 3.4 mmol/L (3.5-5.1)
[2023-11-23 05:20] LABS: INR 2.2 (0.9-1.1); Prothrombin Time 22.5 Seconds (9.0-12.0)
[2023-11-23 05:32] LABS: Troponin I High Sensitivity 6.4 pg/ml (0-20)
[2023-11-23 05:47] LABS: Basophils # (auto) 0.05 K/uL (0.00-0.20); Basophils % (auto) 0.3 %; Eosinophils # (auto) 0.01 K/uL (0.00-0.50); Eosinophils % (auto) 0.1 %; Immature Granulocytes # (auto) 0.13 K/uL (0.01-0.20); Immature Granulocytes % (auto) 0.7 %; Lymphocytes # (auto) 1.12 K/uL (1.20-3.40); Lymphocytes % (auto) 6.2 %; Monocytes # (auto) 0.32 K/uL (0.11-0.59); Monocytes % (auto) 1.8 %; Neutrophils # (auto) 16.56 K/uL (1.40-6.50); Neutrophils % (auto) 90.9 %; Polychromasia 1+
--- NOTE | 2023-11-23 06:51 | XRay Report ---
XR chest 1V portable CLINICAL HISTORY: Dyspnea TECHNIQUE: Single frontal radiograph of the chest was obtained. Comparison: Comparison is made to chest radiograph 09/19/2023 FINDINGS: Stable loop recorder. Cardiomegaly is noted. The lungs are clear. No evidence of pleural effusion or pneumothorax. IMPRESSION: No acute chest disease. ACT 112: Negative or not required by law. Electronically signed by: Armand Tobar M.D. 11/23/2023 6:50 AM
[2023-11-23] MEDS: BUDESONIDE 0.5 MG/2 ML VIAL (PULMICORT) INH SCH (07:14)
[2023-11-23] MEDS: ALBUT/IPRATROP 3MG/0.5MG NEB 3 ML VIAL NEB SCH ×2 (07:15→20:05)
--- OUTSIDE RECORDS SUMMARY | 2023-11-23 07:39 | External Medical Summary | Summary of Care ---
Author Name Unknown Organization [facility] Address [address] [place] [address] Phone [phone] Care Team Providers Care Sap Gatherer Name Role Phone Roberto Askew MD Primary Care Provider + Reason for Visit * Reason Comments Dosage Adjustment Via Phone (anticoag Cl inic) Encounter Details Date Type Department Care Team (Latest Contact Info) Description 11/17/2023 6:00 AM EST Anticoagulation Pharmacy Call Center [phone] [place] [address] [facility] [phone] [place] [address] History of pulmonary embolism* Allergies Active Allergy [...] as of this encounter (statuses as of 11/17/2023) Medications Medication Sig Dispensed Refills Start Date [...] day as needed. 0 Active nystatin (NYSTOP) 590268 UNIT/GM powderIndications:Cu taneous candidiasis Apply topically to [...] group C, by GOLD 2017 classification ([facility]),COPD, group D, by GOLD 2017 classification ([facility]) USE 2 PUFFS BY MOUTH EVERY 4 HOURS NEEDED SHORT OF BREATH 6.7 g 5 11/24/2021 Active Magnesium Oxide 400 (241.3 Mg) MG Oral TabletIndications:Co ronary artery disease involving [place] coronary artery of [place] heart without angina pectoris Take by mouth [...] MG Oral TabletIndications:Co ronary artery disease involving [place] coronary artery of [place] heart without angina pectoris Take 1 Tablet by mouth in the morning. In the morning.. 90 Tablet 1 04/05/2023 Active Metoprolol Succinate ER 50 MG Oral Tablet Extended Release 24 Hour (toPROL XL)Indications:Coron uziel artery disease involving [place] coronary artery of [place] heart without angina pectoris TAKE 1 & [...] THE MORNING 90 Tablet 1 04/21/2023 Active metOLazone 2.5 MG Oral Tablet (Zaroxolyn) [...] A1c goal of less than 8.0% ([facility]) Use 3 times daily as directed 300 Strip 3 08/31/2023 Active TRUEplus Lancets 33GIndications:Type 2 diabetes mellitus with hemoglobin A1c goal of less than 8.0% ([facility]) Use 3 times daily as [...] THE AFTERNOON. 90 Tablet 1 09/06/2023 Active Warfarin Sodium 4 MG Oral Tablet (Coumadin)Indication s:History of pulmonary embolism TAKE 1/2 TO 1 TABLET EVERY DAY DIRECTED BY COUMADIN CLINIC. 180 Tablet 1 11/10/2023 Active documented as of this encounter (statuses as of 11/17/2023) Active Problems Problem Noted Date Diagnosed Date [...] 01/24/2021 Opioid dependence, uncomplicated 01/22/2021 History of MA (myocardial infarction) 01/22/2021 Morbid obesity with BMI of 50.0-59.9, adult 09/20 History of subdural hematoma 10/04/2020 Gastroesophageal reflux disease without esophagi tis 10/04/2020 History of subarachnoid hemorrhage 10/04/2020 Coronary artery disease invo lving [place] heart without angina pectoris 10/04/2020 COPD, group [...] as of this encounter (statuses as of 11/17/2023) Resolved Problems Problem Noted Date Diagnosed Date [...] Calculus of kidney 08/20/2015 8 Overview: right, [place] CT Vitamin D deficiency 01/31/2015 018 Body [...] as of this encounter (statuses as of 11/17/2023) Immunizations Name Administration Dates Next Due COVID-19 mRNA, LNP-s, No Pre serve, 2-Dose Series (Oink) 01/02/2021,12/05/2020 DTP Vaccine 07/19/2017,04/03/2014 Hepatitis B, 20+ [...] as of this encounter Progress Notes * Carlos Alberto Goodwin CPhT - 11/17/2023 10:34 AM EST Contacts Type Contact Phone/Fax 11/17/2023 10:32 AM EST Phone (Outgoing) Stanton Milner (Self) [phone] (H) Spoke to Patient Subjective Patient Findings [...] date communicated as noted by Pharmacist: Yes Carlos Alberto Goodwin CPhT 11/17/2023, 10:34 AM * Keren Sanchez [facility] - 11/17/2023 9:06 AM EST Coumadin Clinic (region specific) Objective Current Warfarin Dose As of 11/17/2023 Warfarin maintenance plan: 2 mg (4 mg x 0.5) every Sat; 4 mg (4 mg x 1) all other days INR Result As of 11/17/2023 INR goal: 2.0-3.0 INR used for dosin.1 (11/16/2023) Assessment & Plan Warfarin Plan As of 11/17/2023 Full warfarin instructions: 2 mg every Sat; 4 mg all other days No change documented: Keren Sanchez [facility] Next INR check: 11/23/2023 Repeat PT/INR in 1 week(s) Weekly dose: not changed Additional Dosing Information: Description [facility]) - pt prefers [facility] at this time Tech to contact patient with dose instructions as noted. Keren Sanchez RPh 11/17/2023, 9:07 AM documented in this encounter Plan of Treatment Upcoming Encounters Date Type Department Care Team (Late st Contact Info) Description 11/23/2023 8:30 AM EST Laboratory Lab Mobile Phlebotomy [facility] [address] [place] [address] [facility] [place] Home Draw [address] [place] [address] Health Maintenance Due Date Last Done Comments DISCUSS TOBACCO CESSATION (REFER TO SMARTSET #8982) 1970 HIV Screening 1985 O2 ASSESSMENT COMPLETED IN PAST YEAR FOR COPD 1988 Pneumococcal Vaccine: Pediatrics (0 to 5 Years) and At-Risk Patients (6 to 64 Years) (2 of 2 - PCV) 05/22/2010 05/22/2009 Cologuard 2015 Fecal Occult Blood Test 2015 Sigmoidoscopy 2015 *ADVANCE DIRECTIVE NOT ON FILE 02/03/2020 LUNG CANCER SCREENING - USE SMARTSET 52712 2020 02/10/2019, 07/19/2017, 05/09/2017, Additional history exists [...] this encounter Medical Devices Implanted Type Area Ratoprinter Device Identifier Shelf Expiration Date Model / Serial / Lot Tube Flex 3.0x2.5 [id number] - [id number] Implanted:Qty: 1 on 12/07/2014 by Juancarlos Trinidad MD at [facility] Left: Finger [employer] : ORTHOPAEDICS 11/18/2015 [id number] / / [id number] documented as of this encounter Visit Diagnoses [...] patient have Health Care Power of Senior Procurement Specialist? No Healthcare Agents on File Name Relationship Healthcare Agent Relationship Communication Estrella Seth Other - (no specific identity) Health Care Power of Senior Procurement Specialist [phone] ([place]) Care Teams Sap Gatherer Relationship Specialty Start Date End Date Roberto Askew MD [address] [place] [address] PCP - General Internal Medicine 04/10/20 documented as of this encounter
--- OUTSIDE RECORDS SUMMARY | 2023-11-23 07:40 | External Medical Summary ---
Author Name Unknown Address Unknown Organization [id number]:[facility] [address] [place] [address] Laboratory Report Ordering Provider Test Date Status ABADOMENICALIONEL 11/09/2023 09:13:00 Final Standing order for pt/inr. < br/>Please draw pt/inr every 1 to 4 weeks as requested
Results to [facility] Anticoagulation [facility]

Warfarin Therapy
INR: 2.0-3.0 conventional anticoagulation
INR: 2.5-3.5 high intensity anticoagulation Observation Date Value Abnormality Reference (Units ) Status PT 11/09/2023 09:13:00 19.0 Above high normal 11 .6-15.2 (seconds) Final INR 11/09/2023 09:13:00 1.6 Above high normal 0. 8-1.2 Final Performing Location [facility] [address] [place] [address]
--- OUTSIDE RECORDS SUMMARY | 2023-11-23 07:40 | External Medical Summary ---
Author Name Unknown Address Unknown Organization [id number]:[facility] [place] [address] Laboratory Report Ordering Provider Test Date Status TULIO TRONCOSO 11/01/2023 14:26:47 Final Standing order for pt/inr. < br/>Please draw pt/inr every 1 to 4 weeks as requested
Results to [facility] Anticoagulation Clinic

Warfarin Therapy
INR: 2.0-3.0 conventional anticoagulation
INR: 2.5-3.5 high intensity anticoagulation Observation Date Value Abnormality Reference (Units ) Status PT 11/01/2023 14:26:47 26.3 Above high normal 11 .6-15.2 (seconds) Final INR 11/01/2023 14:26:47 2.4 Above high normal 0. 8-1.2 Final Performing Location [facility] [place] [address]
--- OUTSIDE RECORDS SUMMARY | 2023-11-23 07:40 | External Medical Summary | Summary of Care ---
Author Name Unknown Organization [facility] Address [address] [place] [address] Phone [phone] Care Team Providers Care Manager Studio Name Role Phone Roberto Askew MD Primary Care Provider + Reason for Visit * Reason Comments Dosage Adjustment Via Phone (anticoag Cl inic) Encounter Details Date Type Department Care Team (Latest Contact Info) Description 11/10/2023 6:00 AM EST Anticoagulation Pharmacy Call Center [address] [place] [address] [facility] [address] [place] [address] History of pulmonary embolism* Allergies Active Allergy [...] as of this encounter (statuses as of 11/10/2023) Medications Medication Sig Dispensed Refills Start Date [...] day as needed. 0 Active nystatin (NYSTOP) 044827 UNIT/GM powderIndications:Cu taneous candidiasis Apply topically to [...] COPD, group C, by GOLD 2017 classification ([facility]),COPD, group D, by GOLD 2017 classification ([facility]) USE 2 PUFFS BY MOUTH EVERY 4 HOURS NEEDED SHORT OF BREATH 6.7 g 5 2 Active Magnesium Oxide 400 (241.3 Mg) MG Oral TabletIndications:Co ronary artery disease involving craig coronary artery of craig heart without angina pectoris Take by mouth [...] MG Oral TabletIndications:Co ronary artery disease involving craig coronary artery of craig heart without angina pectoris Take 1 Tablet by mouth in the morning. In the morning.. 90 Tablet 1 3 Active Metoprolol Succinate ER 50 MG Oral Tablet Extended Release 24 Hour (toPROL XL)Indications:Coron uziel artery disease involving craig coronary artery of craig heart without angina pectoris TAKE 1 & [...] THE MORNING 90 Tablet 1 3 Active metOLazone 2.5 MG [...] less than 8.0% ([facility]) Use 3 times daily as directed 300 Strip 3 3 Active TRUEplus Lancets 33GIndications:Type 2 diabetes mellitus with hemoglobin A1c goal of less than 8.0% ([facility]) Use 3 times daily as [...] THE AFTERNOON. 90 Tablet 1 3 Active Warfarin Sodium 5 MG Oral Tablet (Coumadin)Indication s:History of pulmonary embolism TAKE 1/2 TO 1 TABLET EVERY DAY DIRECTED BY COUMADIN CLINIC. 90 Tablet 3 3 11/10/19 24 Discontinu ed(Refill) documented as of this encounter (statuses as of 11/10/2023) Active Problems Problem Noted Date Diagnosed Date [...] hemorrhage 10/04/2020 Coronary artery disease invo lving craig heart without angina pectoris 10/04/2020 COPD, group [...] as of this encounter (statuses as of 11/10/2023) Resolved Problems Problem Noted Date Diagnosed Date [...] Calculus of kidney 08/20/2015 8 Overview: right, [place] CT Vitamin D deficiency 01/31/2015 018 Body [...] as of this encounter (statuses as of 11/10/2023) Immunizations Name Administration Dates Next Due COVID-19 mRNA, LNP-s, No Pre serve, 2-Dose Series ([employer]) 01/02/2021,12/05/2020 DTP Vaccine 07/19/2017,04/03/2014 Hepatitis B, 20+ [...] as of this encounter Progress Notes * Stephani Soto, duty engineer - 11/10/2023 9:36 AM EST Contacts Type Contact Phone/Fax 11/10/2023 09:34 AM EST Phone (Outgoing) Stanton Milner (Self) [phone] (H) Left Message Subjective Advised patient to contact Anticoagulation Clinic if any unusual bruising or bleeding, recent illness, changes in medication, or questions/concerns. PT/INR results, Coumadin dose instructions, and next PT/INR date communicated as noted by Pharmacist: Yes ARTEM TRACY 11/10/2023, 9:37 AM * Keren Sanchez RPh - 11/10/2023 8:57 AM EST Images from the original note were not included. Coumadin Clinic (region specific) Objective Current Warfarin Dose As of 11/10/2023 Warfarin maintenance plan: 2 mg (2 mg x 1) every Fri; 4 mg (2 mg x 2) all other days INR Result As of 11/10/2023 INR goal: 2.0-3.0 INR used for dosin.6 (11/09/2023) Assessment & Plan Warfarin Plan As of 11/10/2023 Full warfarin instructions: 11/10: 8 mg; Otherwise 2 mg every Fri; 4 mg all other days Next INR check: 11/16/2023 Repeat PT/INR in 1 week(s) Weekly dose: not changed Additional Dosing Information: Description GML(Count includes the [facility]) - pt prefers Tues GML at this time Tech to contact patient with dose instructions as noted. Keren Sanchez RPh 11/10/2023, 8:57 AM documented in this encounter Plan of Treatment Health Maintenance Due Date Last Done Comments DISCUSS TOBACCO CESSATION (REFER TO SMARTSET #1616) 1970 HIV Screening 1985 O2 ASSESSMENT COMPLETED IN PAST YEAR FOR COPD 1988 Pneumococcal Vaccine: Pediatrics (0 to 5 Years) and At-Risk Patients (6 to 64 Years) (2 of 2 - PCV) 05/22/2010 05/22/2009 Cologuard 2015 Fecal Occult Blood Test 2015 Sigmoidoscopy 2015 *ADVANCE DIRECTIVE NOT ON FILE 02/03/2020 LUNG CANCER SCREENING - USE SMARTSET [id number] 2020 02/10/2019, 07/19/2017, 05/09/2017, Additional history exists [...] encounter Medical Devices Implanted Type Area Aircraft Pilot Device Identifier Shelf Expiration Date Model / Serial / Lot Tube Flex 3.0x2.5 [id number] - [id number] Implanted:Qty: 1 on 12/07/2014 by Juancarlos Trinidad MD at [facility] Left: Finger [employer]ANDON : ORTHOPAEDICS 11/18/2015 [id number] / / [id number] documented as of this encounter Visit Diagnoses [...] the patient have Health Care Power of Oncology Coordinator? No Healthcare Agents on File Name Relationship Healthcare Agent Relationship Communication Estrella Seth Other - (no specific identity) Health Care Power of Oncology Coordinator Care Teams Manager Studio Relationship Specialty Start Date End Date Roberto Askew MD [address] [place] [address] PCP - General Internal Medicine 04/10/20 documented as of this encounter
--- OUTSIDE RECORDS SUMMARY | 2023-11-23 07:40 | External Medical Summary | Summary of Care ---
Author Name Unknown Organization [facility] Address [address] [place] [address] Phone [phone] Care Team Providers Care Nipple Machine Operator Name Role Phone Roberto Askew MD Primary Care Provider + Reason for Visit * Reason Comments Dosage Adjustment Via Phone (anticoag Cl inic) Encounter Details Date Type Department Care Team (Latest Contact Info) Description 11/02/2023 6:00 AM EST Anticoagulation Pharmacy Call Center [phone] [place] [address] [facility] [address] [place] [address] History of pulmonary embolism* Allergies Active Allergy [...] as of this encounter (statuses as of 11/02/2023) Medications Medication Sig Dispensed Refills Start Date [...] day as needed. 0 Active nystatin (NYSTOP) 560304 UNIT/GM powderIndications:Cu taneous candidiasis Apply topically to [...] COPD, group C, by GOLD 2017 classification ([facility]),COPD, group D, by GOLD 2017 classification ([facility]) USE 2 PUFFS BY MOUTH EVERY 4 HOURS NEEDED SHORT OF BREATH 6.7 g 5 11/24/2021 Active Magnesium Oxide 400 (241.3 Mg) MG Oral TabletIndications:Co ronary artery disease involving [place] coronary artery of [place] heart without angina pectoris Take by mouth [...] MG Oral TabletIndications:Co ronary artery disease involving [place] coronary artery of [place] heart without angina pectoris Take 1 Tablet by mouth in the morning. In the morning.. 90 Tablet 1 04/05/2023 Active Metoprolol Succinate ER 50 MG Oral Tablet Extended Release 24 Hour (toPROL XL)Indications:Coron uziel artery disease involving [place] coronary artery of [place] heart without angina pectoris TAKE 1 & [...] 8.0% ([facility]) Use 3 times daily as directed 1 [...] 8.0% ([facility]) Use 3 times daily as directed 300 [...] as of this encounter (statuses as of 11/02/2023) Active Problems Problem Noted Date Diagnosed Date [...] 01/24/2021 Opioid dependence, uncomplicated 01/22/2021 History of [place] (myocardial infarction) 01/22/2021 Morbid obesity with BMI of 50.0-59.9, adult 09/20 History of subdural hematoma 10/04/2020 Gastroesophageal reflux disease without esophagi tis 10/04/2020 History of subarachnoid hemorrhage 10/04/2020 Coronary artery disease invo lving [place] heart without angina pectoris 10/04/2020 COPD, group [...] as of this encounter (statuses as of 11/02/2023) Resolved Problems Problem Noted Date Diagnosed Date [...] Calculus of kidney 08/20/2015 8 Overview: right, [place] CT Vitamin D deficiency 01/31/2015 018 Body [...] as of this encounter (statuses as of 11/02/2023) Immunizations Name Administration Dates Next Due COVID-19 mRNA, LNP-s, No Pre serve, 2-Dose Series ([employer]) 01/02/2021,12/05/2020 DTP Vaccine 07/19/2017,04/03/2014 Hepatitis B, 20+ [...] as of this encounter Progress Notes * Delilah Boland pheresis specialist - 11/02/2023 9:00 AM EST Contacts Type Contact Phone/Fax 11/02/2023 08:58 AM EST Phone (Outgoing) Stanton Milner (Self) [phone] (H) Left Message Subjective Advised patient to contact Anticoagulation Clinic if any unusual bruising or bleeding, recent illness, changes in medication, or questions/concerns. PT/INR results, Coumadin dose instructions, and next PT/INR date communicated as noted by Pharmacist: Yes ARTEM LIRA Tech 11/02/2023, 9:00 AM * Keren Sanchez [facility] - 11/02/2023 8:14 AM EST Coumadin Clinic (region specific) Objective Current Warfarin Dose As of 11/02/2023 Warfarin maintenance plan: 2 mg (2 mg x 1) every Fri; 4 mg (2 mg x 2) all other days INR Result As of 11/02/2023 INR goal: 2.0-3.0 INR used for dosin.4 (11/01/2023) Assessment & Plan Warfarin Plan As of 11/02/2023 Full warfarin instructions: 2 mg every Fri; 4 mg all other days No change documented: Keren Sanchez [facility] Next INR check: 11/09/2023 Repeat PT/INR in 1 week(s) Weekly dose: not changed Additional Dosing Information: Description GML([facility]) [facility] Tech to contact patient with dose instructions as noted. Keren Sanchez RPh 11/02/2023, 8:14 AM documented in this encounter Plan of Treatment Health Maintenance Due Date Last Done Comments DISCUSS TOBACCO CESSATION (REFER TO SMARTSET #8964) 1970 HIV Screening 1985 O2 ASSESSMENT COMPLETED IN PAST YEAR FOR COPD 1988 Pneumococcal Vaccine: Pediatrics (0 to 5 Years) and At-Risk Patients (6 to 64 Years) (2 - PCV) 05/22/2010 05/22/2009 Cologuard 2015 Fecal Occult Blood Test 2015 Sigmoidoscopy 2015 *ADVANCE DIRECTIVE NOT ON FILE 02/03/2020 LUNG CANCER SCREENING - USE SMARTSET 33218 2020 02/10/2019, 07/19/2017, 05/09/2017, Additional history exists [...] this encounter Medical Devices Implanted Type Area Resident Care Manager Device Identifier Shelf Expiration Date Model / Serial / Lot Tube Flex 3.0x2.5 [id number] - [id number] Implanted:Qty: 1 on 12/07/2014 by Juancarlos Trinidad MD at [facility] Left: Finger [employer]ON : ORTHOPAEDICS 11/18/2015 [id number] / / [id number] documented as of this encounter Visit Diagnoses [...] the patient have Health Care Power of Rn New Graduate? No Healthcare Agents on File Name Relationship Healthcare Agent Relationship Communication Estrella Seth Other - (no specific identity) Health Care Power of Rn New Graduate Care Teams Nipple Machine Operator Relationship Specialty Start Date End Date Roberto Askew MD [address] [place] [address] PCP - General Internal Medicine 04/10/20 documented as of this encounter
--- OUTSIDE RECORDS SUMMARY | 2023-11-23 07:40 | External Medical Summary ---
Author Name Unknown Address Unknown Organization K09:[facility] [place] [address] Laboratory Report Ordering Provider Test Date Status TULIO TRONCOSO 11/16/2023 09:36:51 Final Standing order for pt/inr. < br/>Please draw pt/inr every 1 to 4 weeks as requested
Results to [facility] Anticoagulation Clinic

Warfarin Therapy
INR: 2.0-3.0 conventional anticoagulation
INR: 2.5-3.5 high intensity anticoagulation Observation Date Value Abnormality Reference (Units ) Status PT 11/16/2023 09:36:51 23.5 Above high normal 11 .6-15.2 (seconds) Final INR 11/16/2023 09:36:51 2.1 Above high normal 0. 8-1.2 Final Performing Location [facility] [place] [address]
--- OUTSIDE RECORDS SUMMARY | 2023-11-23 07:40 | External Medical Summary | Summary of Care ---
Author Name Unknown Organization [facility] Address [address] Care Team Providers Care Mysql Database Administrator Name Role Phone Roberto Askew MD Primary Care Provider + Reason for Visit * Reason Onset Date Comments Med Request 11/10/2023 Encounter Details Date Type Department Care Team ([facility] st Contact Info) Description 11/10/2023 Telephone Pharmacy, [facility] [place] [address] [facility] [place] [address] [facility] [address] [facility] [place] [address] Med Request Allergies Active Allergy Reactions Criticality [...] day as needed. 0 Active nystatin (NYSTOP) 843776 UNIT/GM powderIndications:Cu taneous candidiasis Apply topically to [...] MG Oral TabletIndications:Co ronary artery disease involving [place] coronary artery of [place] heart without angina pectoris Take by mouth [...] MG Oral TabletIndications:Co ronary artery disease involving [place] coronary artery of [place] heart without angina pectoris Take 1 Tablet by mouth in the morning. In the morning.. 90 Tablet 1 3 Active Metoprolol Succinate ER 50 MG Oral Tablet Extended Release 24 Hour (toPROL XL)Indications:Coron uziel artery disease involving [place] coronary artery of [place] heart without angina pectoris TAKE 1 & [...] ([facility]) Use 3 times daily as directed 300 Strip 3 3 Active TRUEplus Lancets 33GIndications:Type 2 diabetes mellitus with hemoglobin A1c goal of less than 8.0% ([facility]) Use 3 times daily as directed 300 [...] 90 Tablet 1 3 Active Warfarin Sodium 4 MG Oral Tablet (Coumadin)Indication s:History of pulmonary embolism TAKE 1/2 TO 1 TABLET EVERY DAY DIRECTED BY COUMADIN CLINIC. 180 Tablet 1 4 Active Warfarin Sodium 5 MG Oral Tablet [...] hemorrhage 10/04/2020 Coronary artery disease invo lving [place] heart without angina pectoris 10/04/2020 COPD, group [...] Calculus of kidney 08/20/2015 8 Overview: right, [place] CT Vitamin D deficiency 01/31/2015 018 Body [...] mRNA, LNP-s, No Pre serve, 2-Dose Series ([employer]) 01/02/2021,12/05/2020 DTP Vaccine 07/19/2017,04/03/2014 Hepatitis B, 20+ [...] encounter Miscellaneous Notes * Telephone Encounter - Michael Jackson RPh - 11/10/2023 9:46 AM EST Noted, new RX sent for Warfarin 4mg tablets. Tracker updated to reflect. Thanks, Michael Jackson Rph, Pharm D. Clinical Pharmacist [facility] (Formerly Telepharmacy)/[facility] [phone] 11/10/2023,9:46 AM * Telephone Encounter - Rosa Blackburn, plant engineering supervisor - 11/10/2023 9:43 AM EST Caller's name: Bill Preferred call back number(OFFICE NUMBER FOR ): [phone] Reason for call: patient requesting a prescription for warfarin 4mg tablets stating he only has 5mgtablets but his new dosing is 2mg and 4mg, please send to the [facility] in [place], thank you. Rosa Blackburn MA Nuclear Physician I [facility] ([facility]) (formerly Telepharmacy) [address] [facility] [address] [place] [address] ext [phone] documented in this encounter Plan of Treatment [...] 02/03/2020 LUNG CANCER SCREENING - USE SMARTSET [id number] 2020 02/10/2019, 07/19/2017, 05/09/2017, Additional history exists [...] this encounter Medical Devices Implanted Type Area Embedded Systems Software Developer Device Identifier Shelf Expiration Date Model / Serial / Lot Tube Flex 3.0x2.5 [id number] - [id number] Implanted:Qty: 1 on 12/07/2014 by Juancarlos Trinidad MD at [facility] Left: Finger [employer] : ORTHOPAEDICS 11/18/2015 [id number] / / [id number] documented as of this encounter Visit Diagnoses [...] the patient have Health Care Power of Cancer Genetic Counselor? No Healthcare Agents on File Name Relationship Healthcare Agent Relationship Communication Estrella Seth Other - (no specific identity) Health Care Power of Cancer Genetic Counselor Care Teams Mysql Database Administrator Relationship Specialty Start Date End Date Roberto Askew MD [address] [place] [address] PCP - General Internal Medicine 04/10/20 documented as of this encounter
--- OUTSIDE RECORDS SUMMARY | 2023-11-23 07:41 | External Medical Summary | Summary of Care ---
Author Name Unknown Organization [facility] Address [address] [place] [address] Phone [phone] Care Team Providers Care Taker Off Name Role Phone Roberto Askew MD Primary Care Provider + Reason for Visit * Reason Comments Dosage Adjustment Via Phone (anticoag Cl inic) Encounter Details Date Type Department Care Team (Latest Contact Info) Description 10/19/2023 6:00 PM EST Anticoagulation Pharmacy Call Center [address] [place] [address] [facility] [address] [place] [address] History of pulmonary embolism* Allergies Active Allergy [...] as of this encounter (statuses as of 10/19/2023) Medications Medication Sig Dispensed Refills Start Date [...] day as needed. 0 Active nystatin (NYSTOP) 472904 UNIT/GM powderIndications:Cu taneous candidiasis Apply topically to [...] Oral TabletIndications:Co ronary artery disease involving [place] coronary artery of [place] heart without angina pectoris Take by mouth [...] Oral TabletIndications:Co ronary artery disease involving [place] coronary artery of [place] heart without angina pectoris Take 1 Tablet by mouth in the morning. In the morning.. 90 Tablet 1 04/05/2023 Active Metoprolol Succinate ER 50 MG Oral Tablet Extended Release 24 Hour (toPROL XL)Indications:Coron uziel artery disease involving [place] coronary artery of [place] heart without angina pectoris TAKE 1 & [...] less than 8.0% ([facility]) Use 3 times daily as directed [...] less than 8.0% ([facility]) Use 3 times daily as directed [...] as of this encounter (statuses as of 10/19/2023) Active Problems Problem Noted Date Diagnosed Date [...] 01/24/2021 Opioid dependence, uncomplicated 01/22/2021 History of [place] (myocardial infarction) 01/22/2021 Morbid obesity with BMI of 50.0-59.9, adult 09/20 History of subdural hematoma 10/04/2020 Gastroesophageal reflux disease without esophagi tis 10/04/2020 History of subarachnoid hemorrhage 10/04/2020 Coronary artery disease invo lving [place] heart without angina pectoris 10/04/2020 COPD, group [...] as of this encounter (statuses as of 10/19/2023) Resolved Problems Problem Noted Date Diagnosed Date [...] Calculus of kidney 08/20/2015 8 Overview: right, [place] CT Vitamin D deficiency 01/31/2015 018 Body [...] as of this encounter (statuses as of 10/19/2023) Immunizations Name Administration Dates Next Due COVID-19 mRNA, LNP-s, No Pre serve, 2-Dose Series ([employer]) 01/02/2021,12/05/2020 DTP Vaccine 07/19/2017,04/03/2014 Hepatitis B, 20+ [...] this encounter Progress Notes * Keren Sanchez, [facility] - 10/19/2023 2:35 PM EST Images from the original note were not included. Medication Therapy Disease Management - Anticoagulation Patient: Stanton A Alf | : 1970 Subjective Contacts Type Contact Phone/Fax 10/19/2023 02:37 PM EST Phone (Outgoing) Stanton Milner [place] (Self) [phone] (H) Spoke to Patient Patient-Reported Symptoms: Patient Findings Negatives: Signs/symptoms of thrombosis, Signs/symptoms of bleeding, Change in health, Change in alcohol use, Change in activity, Upcoming invasive procedure, Missed doses, Extra doses, Change in medications, Change in diet/appetite, Bruising Comments: Confirmed [facility] sent Rx for 2mg tablets and pt has been taking 4mg daily. Objective Current Warfarin Dose As of 10/19/2023 Warfarin maintenance plan: 5 mg (5 mg x 1) every Wed, Fri; 2.5 mg (5 mg x 0.5) all other days INR Result As of 10/19/2023 INR goal: 2.0-3.0 INR used for dosin.8 (10/19/2023) Assessment & Plan Warfarin Plan As of 10/19/2023 Full warfarin instructions: 10/19: Hold; Otherwise 4 mg every day Next INR check: 10/25/2023 Repeat PT/INR in 1 week(s) Weekly dose: not changed Additional Dosing Information: Description GML([facility]) - pt prefers Tues GML at this time Keren Sanchez RP Clinical Pharmacist 10/19/2023, 2:37 PM documented in this encounter Plan of [...] 02/03/2020 LUNG CANCER SCREENING - USE SMARTSET [id number] 2020 02/10/2019, 07/19/2017, 05/09/2017, Additional history exists [...] this encounter Medical Devices Implanted Type Area Loan Clerk Device Identifier Shelf Expiration Date Model / Serial / Lot Tube Flex 3.0x2.5 [id number] - [id number] Implanted:Qty: 1 on 12/07/2014 by Juancarlos Trinidad MD at [facility] Left: Finger [employer] : ORTHOPAEDICS 11/18/2015 [id number] / / [id number] documented as of this encounter Visit Diagnoses [...] the patient have Health Care Power of Floor Press Operator? No Healthcare Agents on File Name Relationship Healthcare Agent Relationship Communication Estrella Seth Other - (no specific identity) Health Care Power of Floor Press Operator [phone] ([place]) Care Teams Taker Off Relationship Specialty Start Date End Date Roberto Askew MD [address] [facility] [place] [address] PCP - General Internal Medicine 04/10/20 documented as of this encounter
--- OUTSIDE RECORDS SUMMARY | 2023-11-23 07:41 | External Medical Summary ---
Author Name Unknown Address Unknown Organization K0G[facility] [address] [place] [address] Laboratory Report Ordering Provider Test Date Status TULIO TRONCOSO 10/25/2023 08:03:00 Final Standing order for pt/inr. < br/>Please draw pt/inr every 1 to 4 weeks as requested
Results to [facility] Anticoagulation Clinic

Warfarin Therapy
INR: 2.0-3.0 conventional anticoagulation
INR: 2.5-3.5 high intensity anticoagulation Observation Date Value Abnormality Reference (Units ) Status PT 10/25/2023 08:03:00 35.8 Above high normal 11 .6-15.2 (seconds) Final INR 10/25/2023 08:03:00 3.5 Above high normal 0. 8-1.2 Final Performing Location [facility] [address] [place] [address]
--- OUTSIDE RECORDS SUMMARY | 2023-11-23 07:41 | External Medical Summary | Summary of Care ---
Author Name Unknown Organization [facility] Address [address] [place] [address] Phone [phone] Care Team Providers Care Dope Firer Name Role Phone Roberto Askew MD Primary Care Provider + Reason for Visit * Reason Onset Date Comments Hospital Follow-Up 10/13/2023 FARIDA Encounter Details Date Type Department Care Team (Late st Contact Info) Description 10/13/2023 Telephone Ancillary [facility] [address] [place] [address] Kimmy Hill, ALEXANDER Hospital Follow-Up (FARIDA) Allergies Active Allergy Reactions Criticality Noted Date [...] day as needed. 0 Active nystatin (NYSTOP) 145998 UNIT/GM powderIndications:Cu taneous candidiasis Apply topically to [...] COPD, group C, by GOLD 2017 classification ([facility]),COPD, group D, by GOLD 2017 classification ([facility]) USE 2 PUFFS BY MOUTH EVERY 4 HOURS NEEDED SHORT OF BREATH 6.7 g 5 11/24/2021 Active Magnesium Oxide 400 (241.3 Mg) MG Oral TabletIndications:Co ronary artery disease involving [place] coronary artery of [place] heart without angina pectoris Take by mouth [...] MG Oral TabletIndications:Co ronary artery disease involving [place] coronary artery of [place] heart without angina pectoris Take 1 Tablet by mouth in the morning. In the morning.. 90 Tablet 1 04/05/2023 Active Metoprolol Succinate ER 50 MG Oral Tablet Extended Release 24 Hour (toPROL XL)Indications:Coron uziel artery disease involving [place] coronary artery of [place] heart without angina pectoris TAKE 1 & [...] 01/24/2021 Opioid dependence, uncomplicated 01/22/2021 History of [place] (myocardial infarction) 01/22/2021 Morbid obesity with BMI of 50.0-59.9, adult 09/20 History of subdural hematoma 10/04/2020 Gastroesophageal reflux disease without esophagi tis 10/04/2020 History of subarachnoid hemorrhage 10/04/2020 Coronary artery disease invo lving [place] heart without angina pectoris 10/04/2020 COPD, group [...] Calculus of kidney 08/20/2015 8 Overview: right, [place] Vitamin D deficiency 01/31/2015 018 Body [...] mRNA, LNP-s, No Pre serve, 2-Dose Series (Fastmobile) 01/02/2021,12/05/2020 DTP Vaccine 07/19/2017,04/03/2014 Hepatitis B, 20+ [...] Telephone Encounter - Kimmy Hill RN - 10/13/2023 11:00 AM EST Transitions of Care Note Reason for Referral:Recent Admission Phone visit for follow up: FARIDA # 1 Left message. Asked patient to return my call to discuss hospitalization, medications and follow up appointments. Will attempt to call tomorrow 10/14 Admitted to: [facility], Date: 09/19/2023 Discharged to: Home self care, Date: 10/12 Diagnosis driving hospitalization: UTI Supra therapeutic INR Hypokalemia Acute metabolic encephalopathy. documented in this encounter Plan of Treatment Upcoming Encounters Date Type Department Care Team (Late st Contact Info) Description 10/19/2023 6:00 PM EST Anticoagulation Pharmacy Call Center [address] [place] [address] Ccps, [facility] [address] [facility] [place] [address] 10/20/2023 5:20 PM EST Office Visit General Internal Medicine [facility] [address] [facility] [address] [place] [address] Roberto Askew MD [address] [facility] [place] [address] Health Maintenance Due Date Last Done Comments DISCUSS TOBACCO CESSATION (REFER TO SMARTSET #3461) 1970 HIV Screening 1985 O2 ASSESSMENT COMPLETED IN PAST YEAR FOR COPD 1988 Pneumococcal Vaccine: Pediatrics (0 to 5 Years) and At-Risk Patients (6 to 64 Years) (2 - PCV) 05/22/2010 05/22/2009 Cologuard 2015 Fecal Occult Blood Test 2015 Sigmoidoscopy 2015 *ADVANCE DIRECTIVE NOT ON FILE 02/03/2020 LUNG CANCER SCREENING - USE SMARTSET [id number] 2020 02/10/2019, 07/19/2017, 05/09/2017, Additional history exists [...] this encounter Medical Devices Implanted Type Area Firer Watertender Device Identifier Shelf Expiration Date Model / Serial / Lot Tube Flex 3.0x2.5 [id number] - [id number] Implanted:Qty: 1 on 12/07/2014 by Juancarlos Trinidad MD at [facility] Left: Finger LANDON : ORTHOPAEDICS 11/18/2015 [id number] / / [id number] documented as of this encounter Advance Directives [...] the patient have Health Care Power of Nutritional Health Coach? No Healthcare Agents on File Name Relationship Healthcare Agent Relationship Communication Estrella Seth Other - (no specific identity) Health Care Power of Nutritional Health Coach Care Teams Dope Firer Relationship Specialty Start Date End Date Roberto Askew MD [address] [place] [address] PCP - General Internal Medicine 04/10/20 documented as of this encounter
--- OUTSIDE RECORDS SUMMARY | 2023-11-23 07:41 | External Medical Summary | Summary of Care ---
Author Name Unknown Organization [facility] Address [address] [place] [address] Phone [phone] Care Team Providers Care Economics Lecturer Name Role Phone Roberto Askew MD Primary Care Provider + Reason for Visit * Reason Onset Date Comments Follow Up 10/19/2023 Encounter Details Date Type Department Care Team ([facility] st Contact Info) Description 10/19/2023 Telephone Ancillary [facility] [address] [place] [address] Kimmy Hill, ALEXANDER Follow Up Allergies Active [...] day as needed. 0 Active nystatin (NYSTOP) 999811 UNIT/GM powderIndications:Cu taneous candidiasis Apply topically to [...] COPD, group C, by GOLD 2017 classification ([facility]),COPD, group D, by GOLD 2017 classification ([facility]) USE 2 PUFFS BY MOUTH EVERY 4 HOURS NEEDED SHORT OF BREATH 6.7 g 5 11/24/2021 Active Magnesium Oxide 400 (241.3 Mg) MG Oral TabletIndications:Co ronary artery disease involving [place] coronary artery of [place] heart without angina pectoris Take by mouth [...] MG Oral TabletIndications:Co ronary artery disease involving [place] coronary artery of [place] heart without angina pectoris Take 1 Tablet by mouth in the morning. In the morning.. 90 Tablet 1 04/05/2023 Active Metoprolol Succinate ER 50 MG Oral Tablet Extended Release 24 Hour (toPROL XL)Indications:Coron uziel artery disease involving [place] coronary artery of [place] heart without angina pectoris TAKE 1 & [...] hemorrhage 10/04/2020 Coronary artery disease invo lving [place] heart without angina pectoris 10/04/2020 COPD, group [...] Calculus of kidney 08/20/2015 8 Overview: right, [place] CT Vitamin D deficiency 01/31/2015 018 Body [...] mRNA, LNP-s, No Pre serve, 2-Dose Series ([employer]) 01/02/2021,12/05/2020 DTP Vaccine 07/19/2017,04/03/2014 Hepatitis B, 20+ [...] Telephone Encounter - Kimmy Hill RN - 10/19/2023 9:31 AM EST Left message on home phone requesting that patient return call. Wanted to remind him of tomorrows appointment and ensure he is coming. Attempted to call mobile number which is consistently busy. Will attempt to call again this afternoon Called and spoke to patient. He will not be able to be at his hospital discharge apt tomorrow as hehas no transportation. He will look into his new insurance to see if they will provide any transportation and make an appointment then. documented in this encounter Plan of Treatment Upcoming Encounters Date Type Department Care Team (Late st Contact Info) Description 10/19/2023 6:00 PM EST Anticoagulation Pharmacy Call Center [address] [facility] [place] [address] Ccps, [facility] [address] [facility] [place] [address] Health Maintenance Due Date Last Done Comments DISCUSS TOBACCO CESSATION (REFER TO SMARTSET #6182) 1970 HIV Screening 1985 O2 ASSESSMENT COMPLETED IN PAST YEAR FOR COPD 1988 Pneumococcal Vaccine: Pediatrics (0 to 5 Years) and At-Risk Patients (6 to 64 Years) (2 - PCV) 05/22/2010 05/22/2009 Cologuard 2015 Fecal Occult Blood Test 2015 Sigmoidoscopy 2015 *ADVANCE DIRECTIVE NOT ON FILE 02/03/2020 LUNG CANCER SCREENING - USE SMARTSET [id number] 2020 02/10/2019, 07/19/2017, 05/09/2017, Additional history exists [...] this encounter Medical Devices Implanted Type Area Canine Service Instructor Trainer Device Identifier Shelf Expiration Date Model / Serial / Lot Tube Flex 3.0x2.5 [id number] - [id number] Implanted:Qty: 1 on 12/07/2014 by Juancarlos Trinidad MD at [facility] Left: Finger LANDON : ORTHOPAEDICS 11/18/2015 [id number] / / [id number] documented as of this encounter Advance Directives [...] the patient have Health Care Power of Creative Services Producer? No Healthcare Agents on File Name Relationship Healthcare Agent Relationship Communication Estrella Seth Other - (no specific identity) Health Care Power of Creative Services Producer Care Teams Economics Lecturer Relationship Specialty Start Date End Date Roberto Askew MD [address] [facility] [place] [address] PCP - General Internal Medicine 04/10/20 documented as of this encounter
--- OUTSIDE RECORDS SUMMARY | 2023-11-23 07:41 | External Medical Summary | Summary of Care ---
Author Name Unknown Organization [facility] Address [address] [place] [address] Phone [phone] Care Team Providers Care Counterintelligence Specialist Name Role Phone Roberto Askew MD Primary Care Provider + Reason for Visit * Reason Comments Dosage Adjustment Via Phone (anticoag Cl inic) Encounter Details Date Type Department Care Team (Latest Contact Info) Description 10/26/2023 6:00 AM EST Anticoagulation Pharmacy Call Center [phone] [facility] [place] [address] [facility] [address] [place] [address] History of pulmonary embolism* Allergies Active Allergy [...] as of this encounter (statuses as of 10/26/2023) Medications Medication Sig Dispensed Refills Start Date [...] day as needed. 0 Active nystatin (NYSTOP) 108396 UNIT/GM powderIndications:Cu taneous candidiasis Apply topically to [...] COPD, group C, by GOLD 2017 classification ([facility]),COPD, group D, by GOLD 2017 classification ([facility]) USE 2 PUFFS BY MOUTH EVERY 4 HOURS NEEDED SHORT OF BREATH 6.7 g 5 11/24/2021 Active Magnesium Oxide 400 (241.3 Mg) MG Oral TabletIndications:Co ronary artery disease involving [place] coronary artery of [place] heart without angina pectoris Take by mouth [...] MG Oral TabletIndications:Co ronary artery disease involving [place] coronary artery of [place] heart without angina pectoris Take 1 Tablet by mouth in the morning. In the morning.. 90 Tablet 1 04/05/2023 Active Metoprolol Succinate ER 50 MG Oral Tablet Extended Release 24 Hour (toPROL XL)Indications:Coron uziel artery disease involving [place] coronary artery of [place] heart without angina pectoris TAKE 1 & [...] 8.0% ([facility]) Use 3 times daily as directed [...] 8.0% ([facility]) Use 3 times daily as directed [...] as of this encounter (statuses as of 10/26/2023) Active Problems Problem Noted Date Diagnosed Date [...] 01/24/2021 Opioid dependence, uncomplicated 01/22/2021 History of [place] (myocardial infarction) 01/22/2021 Morbid obesity with BMI of 50.0-59.9, adult 09/20 History of subdural hematoma 10/04/2020 Gastroesophageal reflux disease without esophagi tis 10/04/2020 History of subarachnoid hemorrhage 10/04/2020 Coronary artery disease invo lving [place] heart without angina pectoris 10/04/2020 COPD, group [...] as of this encounter (statuses as of 10/26/2023) Resolved Problems Problem Noted Date Diagnosed Date [...] Calculus of kidney 08/20/2015 8 Overview: right, [place] CT Vitamin D deficiency 01/31/2015 018 Body [...] as of this encounter (statuses as of 10/26/2023) Immunizations Name Administration Dates Next Due COVID-19 mRNA, LNP-s, No Pre serve, 2-Dose Series ([employer]) 01/02/2021,12/05/2020 DTP Vaccine 07/19/2017,04/03/2014 Hepatitis B, 20+ [...] Progress Notes * Keren Tipton CPhT - 10/26/2023 9:02 AM EST Contacts Type Contact Phone/Fax 10/26/2023 08:56 AM EST Phone (Outgoing) Stanton Milner (Self) [phone] (H) Left Message Subjective Advised patient to contact Anticoagulation Clinic if any unusual bruising or bleeding, recent illness, changes in medication, or questions/concerns. PT/INR results, Coumadin dose instructions, and next PT/INR date communicated as noted by Pharmacist: Yes Keren Tipton CPhT 10/26/2023, 9:02 AM * Keren Sanchez [facility] - 10/25/2023 8:59 PM EST Images from the original note were not included. Coumadin Clinic (region specific) Objective Current Warfarin Dose As of 10/26/2023 Warfarin maintenance plan: 4 mg (2 mg x 2) every day INR Result As of 10/26/2023 INR goal: 2.0-3.0 INR used for dosin.5 (10/25/2023) Assessment & Plan Warfarin Plan As of 10/26/2023 Full warfarin instructions: 10/26: Hold; Otherwise 2 mg every Fri; 4 mg all other days Next INR check: 11/02/2023 Repeat PT/INR in 1 week(s) Weekly dose: decreased Additional Dosing Information: Description [facility] - pt prefers [facility] at this time Tech to contact patient with dose instructions as noted. Keren Sanchez RPh 10/25/2023, 8:59 PM documented in this encounter Plan of Treatment Upcoming Encounters Date Type Department Care Team (Late st Contact Info) Description 11/03/2023 6:00 AM EST Anticoagulation Pharmacy Call Center [address] [facility] [place] [address] [facility] 58 60 [facility] [place] [address] Health Maintenance Due Date Last Done Comments DISCUSS TOBACCO CESSATION (REFER TO SMARTSET #3538) 1970 HIV Screening 1985 O2 ASSESSMENT COMPLETED IN PAST YEAR FOR COPD 1988 Pneumococcal Vaccine: Pediatrics (0 to 5 Years) and At-Risk Patients (6 to 64 Years) (2 - PCV) 05/22/2010 05/22/2009 Cologuard 2015 Fecal Occult Blood Test 2015 Sigmoidoscopy 2015 *ADVANCE DIRECTIVE NOT ON FILE 02/03/2020 LUNG CANCER SCREENING - USE SMARTSET [id number] 2020 02/10/2019, 07/19/2017, 05/09/2017, Additional history exists [...] encounter Medical Devices Implanted Type Area Cloth Mender Device Identifier Shelf Expiration Date Model / Serial / Lot Tube Flex 3.0x2.5 [id number] - [id number] Implanted:Qty: 1 on 12/07/2014 by Juancarlos Trinidad MD at [facility] Left: Finger LANDON : ORTHOPAEDICS 11/18/2015 [id number] / / [id number] documented as of this encounter Visit Diagnoses [...] the patient have Health Care Power of Potato Peeler? No Healthcare Agents on File Name Relationship Healthcare Agent Relationship Communication Estrella Seth Other - (no specific identity) Health Care Power of Potato Peeler Care Teams Counterintelligence Specialist Relationship Specialty Start Date End Date Roberto Askew MD [address] [place] [address] PCP - General Internal Medicine 04/10/20 documented as of this encounter
--- OUTSIDE RECORDS SUMMARY | 2023-11-23 07:42 | External Medical Summary | Summary of Care ---
Author Name Unknown Organization [facility] Address [address] [place] [address] Phone [phone] Care Team Providers Care Community Representative Name Role Phone Roberto Askew MD Primary Care Provider + Reason for Visit * Reason Onset Date Comments Appointment 10/14/2023 Encounter Details Date Type Department Care Team ([facility] st Contact Info) Description 10/14/2023 Telephone Nephrology, [address] [address] Demetria Arizmendi MD [address] [place] [address] Appointment Allergies Active Allergy Reactions Criticality Noted [...] as of this encounter (statuses as of 10/18/2023) Medications Medication Sig Dispensed Refills Start Date [...] day as needed. 0 Active nystatin (NYSTOP) 876800 UNIT/GM powderIndications:Cu taneous candidiasis Apply topically to [...] MG Oral TabletIndications:Co ronary artery disease involving [place] coronary artery [...] MG Oral TabletIndications:Co ronary artery disease involving [place] coronary artery of [place] heart without angina pectoris Take 1 Tablet by mouth in the morning. In the morning.. 90 Tablet 1 04/05/2023 Active Metoprolol Succinate ER 50 MG Oral Tablet Extended Release 24 Hour (toPROL XL)Indications:Coron uziel artery disease involving [place] coronary artery [...] as of this encounter (statuses as of 10/18/2023) Active Problems Problem Noted Date Diagnosed Date [...] as of this encounter (statuses as of 10/18/2023) Resolved Problems Problem Noted Date Diagnosed Date [...] Calculus of kidney 08/20/2015 8 Overview: right, [place] CT Vitamin D deficiency 01/31/2015 018 Body [...] as of this encounter (statuses as of 10/18/2023) Immunizations Name Administration Dates Next Due COVID-19 mRNA, LNP-s, No Pre serve, 2-Dose Series ([employer]) 01/02/2021,12/05/2020 DTP Vaccine 07/19/2017,04/03/2014 Hepatitis B, 20+ [...] encounter Miscellaneous Notes * Telephone Encounter - Donna Winston OSA - 10/18/2023 12:43 PM EST 10/18/23 Called patient, left message. Trying to get patient scheduled with Nephrology for hospital discharge appointment with Dr. Arizmendi in 2-3 weeks. Patient needs blood work done 3-5 days prior to the appointment. Nurse will place labs. My G not active. Letter being sent out to patient. * Telephone Encounter - Donna Winston OSA - 10/14/2023 8:31 AM EST 10/14/23 Called patient, left message. Trying to get patient scheduled with Nephrology for hospital discharge appointment with Dr. Arizmendi in 2-3 weeks. Patient needs blood work done 3-5 days prior to the appointment. Nurse will place labs. My G not active. documented in this encounter Plan of Treatment Upcoming Encounters Date Type Department Care Team (Late st Contact Info) Description 10/19/2023 9:20 AM EST Laboratory Lab Mobile Phlebotomy [facility] [address] [place] [address] [facility] Mobile Home Draw [address] [place] [address] 10/19/2023 6:00 PM EST Anticoagulation Pharmacy Call Center [address] [place] [address] Ccp, [facility] [address] [place] [address] 10/20/2023 5:20 PM EST Office Visit General Internal Medicine [facility] [address] [facility] [place] [address] Roberto Askew MD [address] [place] [address] Health Maintenance Due Date Last Done Comments [...] 02/03/2020 LUNG CANCER SCREENING - USE SMARTSET [id number] 2020 02/10/2019, 07/19/2017, 05/09/2017, Additional history exists Zoster Vaccines (1 of 2) 2020 Hepatitis B (3 of 3 - 19+ 3-dose series) 10/11/2020 06/05/2020, 04/10/2020 Diabetic Foot Exam 12/13/2020 12/14/2019, 1 11/03/2014, 09/03/2014 Albumin/Creatinine Ratio 04/10/2021 04/10/2020 Depression Screening 05/01/2021 05/01/2020, 02/02/20 18 Diabetic Eye Exam 11/19/2021 11/19/2020, 04/10/2020 HbA1c 09/18/2022 03/19/2022, 11/19, 06/05/2021, Additional history exists COVID-19 Vaccine (2022- [...] this encounter Medical Devices Implanted Type Area Crime Laboratory Analyst Device Identifier Shelf Expiration Date Model / Serial / Lot Tube Flex 3.0x2.5 [id number] - [id number] Implanted:Qty: 1 on 12/07/2014 by Juancarlos Trinidad MD at OR [facility] Left: Finger [employer]ANDON : ORTHOPAEDICS 11/18/2015 [id number] / / [id number] documented as of this encounter Advance Directives [...] the patient have Health Care Power of Procedural Nurse? No Healthcare Agents on File Name Relationship Healthcare Agent Relationship Communication Estrella Seth Other - (no specific identity) Health Care Power of Procedural Nurse Care Teams Community Representative Relationship Specialty Start Date End Date Roberto Askew MD [address] [place] [address] PCP - General Internal Medicine 04/10/20 documented as of this encounter
--- OUTSIDE RECORDS SUMMARY | 2023-11-23 07:42 | External Medical Summary | Summary of Care ---
Author Name Unknown Organization [facility] Address [address] [place] [address] Phone [phone] Care Team Providers Care Powder Operator Name Role Phone Roberto Askew MD Primary Care Provider + Reason for Visit * Reason Onset Date Comments Protime Testing 10/13/2023 Encounter Details Date Type Department Care Team ([facility] st Contact Info) Description 10/13/2023 Telephone Pharmacy Call Center [phone] [place] [address] [facility] [address] [place] [address] Protime Testing (/) Allergies Active Allergy Reactions Criticality Noted Date [...] as of this encounter (statuses as of 10/13/2023) Medications Medication Sig Dispensed Refills Start Date [...] day as needed. 0 Active nystatin (NYSTOP) 178294 UNIT/GM powderIndications:Cu taneous candidiasis Apply topically to [...] MG Oral TabletIndications:Co ronary artery disease involving [place] coronary artery of [place] heart without angina pectoris Take by mouth [...] MG Oral TabletIndications:Co ronary artery disease involving [place] coronary artery of [place] heart without angina pectoris Take 1 Tablet by mouth in the morning. In the morning.. 90 Tablet 1 04/05/2023 Active Metoprolol Succinate ER 50 MG Oral Tablet Extended Release 24 Hour (toPROL XL)Indications:Coron uziel artery disease involving [place] coronary artery of [place] heart without angina pectoris TAKE 1 & [...] than 8.0% ([facility]) Use 3 times daily as directed 1 [...] than 8.0% ([facility]) Use 3 times daily as directed 300 [...] as of this encounter (statuses as of 10/13/2023) Active Problems Problem Noted Date Diagnosed Date [...] 01/24/2021 Opioid dependence, uncomplicated 01/22/2021 History of [place] (myocardial infarction) 01/22/2021 Morbid obesity with BMI of 50.0-59.9, adult 09/20 History of subdural hematoma 10/04/2020 Gastroesophageal reflux disease without esophagi tis 10/04/2020 History of subarachnoid hemorrhage 10/04/2020 Coronary artery disease invo lving [place] heart without angina pectoris 10/04/2020 COPD, group [...] as of this encounter (statuses as of 10/13/2023) Resolved Problems Problem Noted Date Diagnosed Date [...] Calculus of kidney 08/20/2015 8 Overview: right, [place] CT Vitamin D deficiency 01/31/2015 018 Body [...] as of this encounter (statuses as of 10/13/2023) Immunizations Name Administration Dates Next Due COVID-19 mRNA, LNP-s, No Pre serve, 2-Dose Series ([employer]) 01/02/2021,12/05/2020 DTP Vaccine 07/19/2017,04/03/2014 Hepatitis B, 20+ [...] Telephone Encounter - Keren Sanchez RPh - 10/13/2023 10:01 AM EST PT/INR order signed Keren Sanchez Rph, Pharm.D. Clinical Pharmacist [facility] ([facility]) (formerly Telepharmacy) [phone] 10/13/2023,10:06 AM documented in this encounter Plan of Treatment Upcoming Encounters Date Type Department Care Team (Late st Contact Info) Description 10/14/2023 11:20 AM EST Laboratory Lab Mobile Phlebotomy GM [address] [place] [address] [facility], [facility] Mobile Home Draw [address] [place] [address] 10/14/2023 6:00 PM EST Anticoagulation Pharmacy Call Center [phone] [place] [address] [facility], [facility] 58 60 [facility] [place] [address] 10/20/2023 5:20 PM EST Office Visit General Internal Medicine [facility] [address] [facility] [place] [address] Roberto Askew MD [address] [facility] [place] [address] Scheduled Orders Name Type Priority Associated Diagnoses Orde r Schedule PT INR Lab Routine History of pulmonary embolism Other, Please specify in Comments field for 26 Occurrences starting 10/13/2023 until 10/13/2024 Health Maintenance Due Date Last Done Comments DISCUSS TOBACCO CESSATION (REFER TO SMARTSET #9431) 1970 HIV Screening 1985 O2 ASSESSMENT COMPLETED IN PAST YEAR FOR COPD 1988 Pneumococcal Vaccine: Pediatrics (0 to 5 Years) and At-Risk Patients (6 to 64 Years) (2 - PCV) 05/22/2010 05/22/2009 Cologuard 2015 Fecal Occult Blood Test 2015 Sigmoidoscopy 2015 *ADVANCE DIRECTIVE NOT ON FILE 02/03/2020 LUNG CANCER SCREENING - USE SMARTSET [id number] 2020 02/10/2019, 07/19/2017, 05/09/2017, Additional history exists [...] encounter Medical Devices Implanted Type Area Director Of Product Marketing Device Identifier Shelf Expiration Date Model / Serial / Lot Tube Flex 3.0x2.5 [id number] - [id number] Implanted:Qty: 1 on 12/07/2014 by Juancarlos Trinidad MD at [facility] Left: Finger [employer] : ORTHOPAEDICS 11/18/2015 [id number] / / [id number] documented as of this encounter Visit Diagnoses [...] have Health Care Power of Director Of Investigations? No Healthcare Agents on File Name Relationship Healthcare Agent Relationship Communication Estrella Seth Other - (no specific identity) Health Care Power of Director Of Investigations [phone] ([place]) Care Teams Powder Operator Relationship Specialty Start Date End Date Robreto Askew MD [address] [facility] [place] [address] PCP - General Internal Medicine 04/10/20 documented as of this encounter
--- OUTSIDE RECORDS SUMMARY | 2023-11-23 07:42 | External Medical Summary ---
Author Name Unknown Address Unknown Organization [facility] [address] [place] [address] Laboratory Report Ordering Provider Test Date Status ABADOMENICALIONEL 10/14/2023 08:12:00 Final Standing order for pt/inr. < br/>Please draw pt/inr every 1 to 4 weeks as requested
Results to [facility]

Warfarin Therapy
INR: 2.0-3.0 conventional anticoagulation
INR: 2.5-3.5 high intensity anticoagulation Observation Date Value Abnormality Reference (Units ) Status PT 10/14/2023 08:12:00 27.2 Above high normal 11 .6-15.2 (seconds) Final INR 10/14/2023 08:12:00 2.5 Above high normal 0. 8-1.2 Final Performing Location [facility] [address] [place] [address]
--- OUTSIDE RECORDS SUMMARY | 2023-11-23 07:42 | External Medical Summary | Summary of Care ---
Author Name Unknown Organization [facility] Address [address] [place] [address] Phone [phone] Care Team Providers Care Warehouse Team Leader Name Role Phone Roberto Askew MD Primary Care Provider + Reason for Visit * Reason Comments Dosage Adjustment Via Phone (anticoag Cl inic) Encounter Details Date Type Department Care Team (Latest Contact Info) Description 10/14/2023 6:00 PM EST Anticoagulation Pharmacy Call Center [phone] [place] [address] [facility] [address] 60 [place] [address] History of pulmonary embolism* Allergies Active Allergy [...] as of this encounter (statuses as of 10/14/2023) Medications Medication Sig Dispensed Refills Start Date [...] day as needed. 0 Active nystatin (NYSTOP) 877320 UNIT/GM powderIndications:Cu taneous candidiasis Apply topically to [...] MG Oral TabletIndications:Co ronary artery disease involving [place] coronary artery of [place] heart without angina pectoris Take by mouth [...] MG Oral TabletIndications:Co ronary artery disease involving [place] coronary artery of [place] heart without angina pectoris Take 1 Tablet by mouth in the morning. In the morning.. 90 Tablet 1 04/05/2023 Active Metoprolol Succinate ER 50 MG Oral Tablet Extended Release 24 Hour (toPROL XL)Indications:Coron uziel artery disease involving [place] coronary artery of [place] heart without angina pectoris TAKE 1 & [...] 8.0% ([facility]) Use 3 times daily as [...] 8.0% ([facility]) Use 3 times daily as [...] as of this encounter (statuses as of 10/14/2023) Active Problems Problem Noted Date Diagnosed Date [...] 01/24/2021 Opioid dependence, uncomplicated 01/22/2021 History of [place] (myocardial infarction) 01/22/2021 Morbid obesity with BMI of 50.0-59.9, adult 09/20 History of subdural hematoma 10/04/2020 Gastroesophageal reflux disease without esophagi tis 10/04/2020 History of subarachnoid hemorrhage 10/04/2020 Coronary artery disease invo lving [place] heart without angina pectoris 10/04/2020 COPD, group [...] as of this encounter (statuses as of 10/14/2023) Resolved Problems Problem Noted Date Diagnosed Date [...] Calculus of kidney 08/20/2015 8 Overview: right, [place] CT Vitamin D deficiency 01/31/2015 018 Body [...] as of this encounter (statuses as of 10/14/2023) Immunizations Name Administration Dates Next Due COVID-19 mRNA, LNP-s, No Pre serve, 2-Dose Series ([employer]) 01/02/2021,12/05/2020 DTP Vaccine 07/19/2017,04/03/2014 Hepatitis B, 20+ [...] this encounter Progress Notes * Keren Sanchez, [facility] - 10/14/2023 2:07 PM EST Medication Therapy Disease Management - Anticoagulation Patient: Stanton Malagon Alf | : 1970 Subjective Contacts Type Contact Phone/Fax 10/14/2023 02:13 PM EST Phone (Outgoing) Stanton Milner [place] (Self) [phone] (H) Left Message Patient-Reported Symptoms: Patient Findings Comments: Pt recently d/c home from [facility]. Per d/c summary pt advised to take 4mg daily. Advised pt to call back to confirm if he has been taking 4mg (new Rx?) daily or resumed DAYCARE DIRECTOR dosing. INR in range- advised pt to continue what has been taking. Objective Current Warfarin Dose As of 10/14/2023 Warfarin maintenance plan: 5 mg (5 mg x 1) every Wed, Fri; 2.5 mg (5 mg x 0.5) all other days INR Result As of 10/14/2023 INR goal: 2.0-3.0 INR used for dosin.5 (10/14/2023) Assessment & Plan Warfarin Plan As of 10/14/2023 Full warfarin instructions: 5 mg every Wed, Fri; 2.5 mg all other days No change documented: Keren Sanchez RPh Next INR check: 10/19/2023 Repeat PT/INR in 5 day(s) Weekly dose: not changed Additional Dosing Information: Description GML([facility]) - pt prefers Tues GML at this time Keren Sanchez RPh Clinical Pharmacist 10/14/2023, 2:15 PM documented in this encounter Plan of Treatment Upcoming Encounters Date Type Department Care Team (Late st Contact Info) Description 10/19/2023 6:00 PM EST Anticoagulation Pharmacy Call Center [address] [place] [address] [facility] [address] [place] [address] 10/20/2023 5:20 PM EST Office Visit General Internal Medicine Maya Orr [place] [address] [facility] [place] [address] Roberto Askew MD 200 [facility] [place] [place] [address] Health Maintenance Due Date Last Done Comments DISCUSS TOBACCO CESSATION (REFER TO SMARTSET #9760) 1970 HIV Screening 1985 O2 ASSESSMENT COMPLETED IN PAST YEAR FOR COPD 1988 Pneumococcal Vaccine: Pediatrics (0 to 5 Years) and At-Risk Patients (6 to 64 Years) (2 - PCV) 05/22/2010 05/22/2009 Cologuard 2015 Fecal Occult Blood Test 2015 Sigmoidoscopy 2015 *ADVANCE DIRECTIVE NOT ON FILE 02/03/2020 LUNG CANCER SCREENING - USE SMARTSET [id number] 2020 02/10/2019, 07/19/2017, 05/09/2017, Additional history exists [...] this encounter Medical Devices Implanted Type Area Bus Attendant Device Identifier Shelf Expiration Date Model / Serial / Lot Tube Flex 3.0x2.5 [id number] - [id number] Implanted:Qty: 1 on 12/07/2014 by Juancarlos Trinidad MD at [facility] Left: Finger [employer] : ORTHOPAEDICS 11/18/2015 [id number] / / [id number] documented as of this encounter Visit Diagnoses [...] the patient have Health Care Power of Care Analyst? No Healthcare Agents on File Name Relationship Healthcare Agent Relationship Communication Estrella Seth Other - (no specific identity) Health Care Power of Care Analyst Care Teams Warehouse Team Leader Relationship Specialty Start Date End Date Roberto Askew MD [address] [facility] [place] [address] PCP - General Internal Medicine 04/10/20 documented as of this encounter
--- OUTSIDE RECORDS SUMMARY | 2023-11-23 07:42 | External Medical Summary | Summary of Care ---
Author Name Unknown Organization [facility] Address [address] [place] [address] Phone [phone] Care Team Providers Care Bus Driver/Monitor Name Role Phone Roberto Askew MD Primary Care Provider + Reason for Visit * Reason Onset Date Comments Appointment 10/14/2023 Encounter Details Date Type Department Care Team ([facility] st Contact Info) Description 10/14/2023 Telephone Nephrology, [address] [address] Demetria Arizmendi MD [address] [place] [address] Appointment Allergies Active Allergy Reactions Criticality [...] day as needed. 0 Active nystatin (NYSTOP) 444823 UNIT/GM powderIndications:Cu taneous candidiasis Apply topically to [...] MG Oral TabletIndications:Co ronary artery disease involving [place] coronary artery [...] MG Oral TabletIndications:Co ronary artery disease involving [place] coronary artery of [place] heart without angina pectoris Take 1 Tablet by mouth in the morning. In the morning.. 90 Tablet 1 04/05/2023 Active Metoprolol Succinate ER 50 MG Oral Tablet Extended Release 24 Hour (toPROL XL)Indications:Coron uziel artery disease involving [place] coronary artery [...] than 8.0% ([facility]) Use 3 times daily as directed 1 Kit 0 08/31/2023 Active True Metrix Blood Glucose Test In Vitro Strip (Glucose Blood)Indications:Ty pe 2 diabetes mellitus with hemoglobin A1c goal of less than 8.0% ([facility]) Use 3 times daily as directed 300 Strip 3 08/31/2023 Active TRUEplus Lancets 33GIndications:Type 2 diabetes mellitus with hemoglobin A1c goal of less than 8.0% ([facility]) Use 3 times daily as [...] Calculus of kidney 08/20/2015 8 Overview: right, [place] CT Vitamin D deficiency 01/31/2015 018 Body [...] mRNA, LNP-s, No Pre serve, 2-Dose Series ([employer]) 01/02/2021,12/05/2020 DTP Vaccine 07/19/2017,04/03/2014 Hepatitis B, 20+ [...] Upcoming Encounters Date Type Department Care Team (Latest Contact Info) Description 10/14/2023 11:20 AM EST Laboratory Lab Mobile Phlebotomy GM [address] [facility] [place] [address] Gm, [facility] Mobile Home Draw [address] [facility] [place] [address] History of pulmonary embolism 10/14/2023 6:00 PM EST Anticoagulation Pharmacy Call Center [address] [place] [address] [facility], [facility] [address] 60 [facility] [place] [address] 10/20/2023 5:20 PM EST Office Visit General Internal Medicine Maya Orr [place] [address] [place] [address] Roberto Askew MD 200 [place] [address] Health Maintenance Due Date Last Done Comments [...] 02/03/2020 LUNG CANCER SCREENING - USE SMARTSET [id number] 2020 02/10/2019, 07/19/2017, 05/09/2017, Additional history exists [...] this encounter Medical Devices Implanted Type Area Marketing Operations Associate Device Identifier Shelf Expiration Date Model / Serial / Lot Tube Flex 3.0x2.5 [id number] - [id number] Implanted:Qty: 1 on 12/07/2014 by Juancarlos Trinidad MD at [facility] Left: Finger [employer] : ORTHOPAEDICS 11/18/2015 [id number] / / [id number] documented as of this encounter Advance Directives [...] the patient have Health Care Power of Magneto Electrician? No Healthcare Agents on File Name Relationship Healthcare Agent Relationship Communication Estrella Seth Other - (no specific identity) Health Care Power of Magneto Electrician Care Teams Bus Driver/Monitor Relationship Specialty Start Date End Date Roberto Askew MD 200 [place] [address] PCP - General Internal Medicine 04/10/20 documented as of this encounter
--- OUTSIDE RECORDS SUMMARY | 2023-11-23 07:42 | External Medical Summary | Summary of Care ---
Author Name Unknown Organization [facility] Address [address] [place] [address] Phone [phone] Care Team Providers Care Automotive Repair Technician Name Role Phone Roberto Askew MD Primary Care Provider + Reason for Visit * Reason Onset Date Comments Encounter Created in Error 10/12/2023 Encounter Details Date Type Department Care Team ([facility] st Contact Info) Description 10/12/[address] [address] Pharmacist2, [facility] [address] [address] Encounter Created in Error Allergies Active Allergy Reactions Criticality Noted Date [...] as of this encounter (statuses as of 10/12/2023) Medications Medication Sig Dispensed Refills Start Date [...] day as needed. 0 Active nystatin (NYSTOP) 623272 UNIT/GM powderIndications:Cu taneous candidiasis Apply topically to [...] as of this encounter (statuses as of 10/12/2023) Active Problems Problem Noted Date Diagnosed Date [...] 01/24/2021 Opioid dependence, uncomplicated 01/22/2021 History of [place] (myocardial infarction) 01/22/2021 Morbid obesity with BMI [...] as of this encounter (statuses as of 10/12/2023) Resolved Problems Problem Noted Date Diagnosed Date [...] Calculus of kidney 08/20/2015 8 Overview: right, [place] CT Vitamin D deficiency 01/31/2015 018 Body [...] as of this encounter (statuses as of 10/12/2023) Immunizations Name Administration Dates Next Due COVID-19 mRNA, LNP-s, No Pre serve, 2-Dose Series (elarm) 01/02/2021,12/05/2020 DTP Vaccine 07/19/2017,04/03/2014 Hepatitis B, 20+ [...] encounter Miscellaneous Notes * Telephone Encounter - Tisha Chatman pipe fitter supervisor maintenance - 10/12/2023 1:04 PM EST error documented in this encounter Plan of Treatment Upcoming Encounters Date Type Department Care Team (Late st Contact Info) Description 10/14/2023 6:00 PM EST Anticoagulation Pharmacy Call Center [address] [place] [address] [facility] 58 60 [facility] [place] [address] 10/20/2023 5:20 PM EST Office Visit General Internal Medicine Maya Orr [place] 200 [facility] [place] [address] Roberto Askew MD 200 [facility] [place], [place] [address] Health Maintenance Due Date Last Done Comments [...] 02/03/2020 LUNG CANCER SCREENING - USE SMARTSET [id number] 2020 02/10/2019, 07/19/2017, 05/09/2017, Additional history exists [...] this encounter Medical Devices Implanted Type Area Packaging Clerk Device Identifier Shelf Expiration Date Model / Serial / Lot Tube Flex 3.0x2.5 [id number] - [id number] Implanted:Qty: 1 on 12/07/2014 by Juancarlos Trinidad MD at [facility] Left: Finger [employer] : ORTHOPAEDICS 11/18/2015 [id number] / / [id number] documented as of this encounter Advance Directives [...] the patient have Health Care Power of Paper And Pulp Mill Worker? No Healthcare Agents on File Name Relationship Healthcare Agent Relationship Communication Estrella Seth Other - (no specific identity) Health Care Power of Paper And Pulp Mill Worker Care Teams Automotive Repair Technician Relationship Specialty Start Date End Date Roberto Askew MD [address] [place] [address] PCP - General Internal Medicine 04/10/20 documented as of this encounter
--- OUTSIDE RECORDS SUMMARY | 2023-11-23 07:42 | External Medical Summary ---
Author Name Unknown Address Unknown Organization [facility] [address] [place] [address] Laboratory Report Ordering Provider Test Date Status ABATULIO 10/19/2023 09:30:00 Final Standing order for pt/inr. < br/>Please draw pt/inr every 1 to 4 weeks as requested
Results to [facility]

Warfarin Therapy
INR: 2.0-3.0 conventional anticoagulation
INR: 2.5-3.5 high intensity anticoagulation Observation Date Value Abnormality Reference (Units ) Status PT 10/19/2023 09:30:00 37.9 Above high normal 11 .6-15.2 (seconds) Final INR 10/19/2023 09:30:00 3.8 Above high normal 0. 8-1.2 Final Performing Location [facility] [address] [place] [address]
--- OUTSIDE RECORDS SUMMARY | 2023-11-23 07:42 | External Medical Summary | Summary of Care ---
Author Name Unknown Organization [facility] Address [address] [place] [address] Phone [phone] Care Team Providers Care Oracle R12 Developer Name Role Phone Roberto Askew MD Primary Care Provider + Reason for Visit * Reason Onset Date Comments Encounter Created in Error 10/18/2023 Encounter Details Date Type Department Care Team ([facility] st Contact Info) Description 10/18/2023 Telephone Nephrology, [address] [address] Demetria Arizmendi MD [address] [place] [address] Encounter Created in Error Allergies Active Allergy [...] day as needed. 0 Active nystatin (NYSTOP) 393328 UNIT/GM powderIndications:Cu taneous candidiasis Apply topically to [...] MG Oral TabletIndications:Co ronary artery disease involving atka coronary artery of atka heart without angina pectoris Take by mouth [...] MG Oral TabletIndications:Co ronary artery disease involving atka coronary artery of atka heart without angina pectoris Take 1 Tablet by mouth in the morning. In the morning.. 90 Tablet 1 04/05/2023 Active Metoprolol Succinate ER 50 MG Oral Tablet Extended Release 24 Hour (toPROL XL)Indications:Coron uziel artery disease involving atka coronary artery of atka heart without angina pectoris TAKE 1 & [...] hemoglobin A1c goal of less than 8.0% ([facility]) Use 3 times daily as directed 1 Kit 0 08/31/2023 Active True Metrix Blood Glucose Test In Vitro Strip (Glucose Blood)Indications:Ty pe 2 diabetes mellitus with hemoglobin A1c goal of less than 8.0% ([facility]) Use 3 times daily as directed 300 Strip 3 08/31/2023 Active TRUEplus Lancets 33GIndications:Type 2 diabetes mellitus with hemoglobin A1c goal of less than 8.0% ([facility]) Use 3 times daily as directed 300 [...] 01/24/2021 Opioid dependence, uncomplicated 01/22/2021 History of [place] (myocardial infarction) 01/22/2021 Morbid obesity with BMI of 50.0-59.9, adult 09/20 History of subdural hematoma 10/04/2020 Gastroesophageal reflux disease without esophagi tis 10/04/2020 History of subarachnoid hemorrhage 10/04/2020 Coronary artery disease invo lving atka heart without angina pectoris 10/04/2020 COPD, group [...] Calculus of kidney 08/20/2015 8 Overview: right, [place] CT Vitamin D deficiency 01/31/2015 018 Body [...] mRNA, LNP-s, No Pre serve, 2-Dose Series (C4Robo) 01/02/2021,12/05/2020 DTP Vaccine 07/19/2017,04/03/2014 Hepatitis B, 20+ [...] 9:20 AM EST Laboratory Lab Mobile Phlebotomy [facility] [address] [facility] [place] [address] [facility] Mobile Home Draw [address] [facility] [place] [address] 10/19/2023 6:00 PM EST Anticoagulation Pharmacy Call Center [address] [place] [address] [facility] [address] [place] [address] 10/20/2023 5:20 PM EST Office Visit General Internal Medicine Maya Orr Amelia [address] [facility] [place] [address] Roberto Askew MD 200 [facility] [place] [address] Health Maintenance Due Date Last Done Comments [...] 02/03/2020 LUNG CANCER SCREENING - USE SMARTSET [id number] 2020 02/10/2019, 07/19/2017, 05/09/2017, Additional history exists [...] this encounter Medical Devices Implanted Type Area Telephone Directory Distributor Driver Device Identifier Shelf Expiration Date Model / Serial / Lot Tube Flex 3.0x2.5 [id number] - [id number] Implanted:Qty: 1 on 12/07/2014 by Juancarlos Trinidad MD at [facility] Left: Finger [employer]AND[employer] : ORTHOPAEDICS 11/18/2015 [id number] / / [id number] documented as of this encounter Advance Directives [...] the patient have Health Care Power of Warehouse Examiner? No Healthcare Agents on File Name Relationship Healthcare Agent Relationship Communication Estrella Seth Other - (no specific identity) Health Care Power of Warehouse Examiner Care Teams Oracle R12 Developer Relationship Specialty Start Date End Date Roberto Askew MD [address] [place] [address] PCP - General Internal Medicine 04/10/20 documented as of this encounter
--- OUTSIDE RECORDS SUMMARY | 2023-11-23 07:43 | External Medical Summary | Summary of Care ---
Author Name Unknown Organization [facility] Address [address] [place] [address] Phone [phone] Care Team Providers Care Office Machine Inspector Name Role Phone Roberto Askew MD Primary Care Provider + Reason for Visit * Reason Comments Dosage Adjustment Via Phone (anticoag Cl inic) Encounter Details Date Type Department Care Team (Latest Contact Info) Description 10/11/2023 6:45 AM EST Anticoagulation Pharmacy Call Center [phone] [place] [address] [facility] [address] [place] [address] History of pulmonary embolism* Allergies Active Allergy [...] as of this encounter (statuses as of 10/11/2023) Medications Medication Sig Dispensed Refills Start Date [...] day as needed. 0 Active nystatin (NYSTOP) 751308 UNIT/GM powderIndications:Cu taneous candidiasis Apply topically to [...] COPD, group C, by GOLD 2017 classification ([facility]),COPD, group D, by GOLD 2017 classification ([facility]) USE 2 PUFFS BY MOUTH EVERY 4 HOURS NEEDED SHORT OF BREATH 6.7 g 5 11/24/2021 Active Magnesium Oxide 400 (241.3 Mg) MG Oral TabletIndications:Co ronary artery disease involving [place] coronary artery of [place] heart without angina pectoris Take by mouth [...] MG Oral TabletIndications:Co ronary artery disease involving [place] coronary artery of [place] heart without angina pectoris Take 1 Tablet by mouth in the morning. In the morning.. 90 Tablet 1 04/05/2023 Active Metoprolol Succinate ER 50 MG Oral Tablet Extended Release 24 Hour (toPROL XL)Indications:Coron uziel artery disease involving [place] coronary artery of [place] heart without angina pectoris TAKE 1 & [...] hemoglobin A1c goal of less than 8.0% ([facility]) Use 3 times daily as directed 1 Kit 0 08/31/2023 Active True Metrix Blood Glucose Test In Vitro Strip (Glucose Blood)Indications:Ty pe 2 diabetes mellitus with hemoglobin A1c goal of less than 8.0% ([facility]) Use 3 times daily as directed 300 Strip 3 08/31/2023 Active TRUEplus Lancets 33GIndications:Type 2 diabetes mellitus with hemoglobin A1c goal of less than 8.0% ([facility]) Use 3 times daily as [...] as of this encounter (statuses as of 10/11/2023) Active Problems Problem Noted Date Diagnosed Date [...] hemorrhage 10/04/2020 Coronary artery disease invo lving lone pine heart without angina pectoris 10/04/2020 COPD, group [...] as of this encounter (statuses as of 10/11/2023) Resolved Problems Problem Noted Date Diagnosed Date [...] of kidney 08/20/2015 8 Overview: right, [place] CT Vitamin D deficiency 01/31/2015 018 Body [...] as of this encounter (statuses as of 10/11/2023) Immunizations Name Administration Dates Next Due COVID-19 mRNA, LNP-s, No Pre serve, 2-Dose Series ([employer]) 01/02/2021,12/05/2020 DTP Vaccine 07/19/2017,04/03/2014 Hepatitis B, 20+ [...] Progress Notes * Keren Sanchez RPh - 10/11/2023 12:32 PM EST PT remains admitted to [facility]. Per CM note anticipated d/c home tomorrow. [facility] will follow up. Keren Sanchez Rph, Pharm.D. Clinical Pharmacist Centralized Clinical Pharmacy Services (CCPS) (formerly Telepharmacy) [phone] 10/11/2023,12:32 PM documented in this encounter Plan of Treatment Upcoming Encounters Date Type Department Care Team (Late st Contact Info) Description 10/12/2023 6:45 AM EST Anticoagulation Pharmacy Call Center [phone] [facility] [place] [address] [facility] [address] [facility] [place] [address] Health Maintenance Due Date Last Done Comments DISCUSS TOBACCO CESSATION (REFER TO SMARTSET #5759) 1970 HIV Screening 1985 O2 ASSESSMENT COMPLETED IN PAST YEAR FOR COPD 1988 Pneumococcal Vaccine: Pediatrics (0 to 5 Years) and At-Risk Patients (6 to 64 Years) (2 - PCV) 05/22/2010 05/22/2009 Cologuard 2015 Fecal Occult Blood Test 2015 Sigmoidoscopy 2015 *ADVANCE DIRECTIVE NOT ON FILE 02/03/2020 LUNG CANCER SCREENING - USE SMARTSET [id number] 2020 02/10/2019, 07/19/2017, 05/09/2017, Additional history exists [...] this encounter Medical Devices Implanted Type Area Line Patroller Device Identifier Shelf Expiration Date Model / Serial / Lot Tube Flex 3.0x2.5 [id number] - [id number] Implanted:Qty: 1 on 12/07/2014 by Juancarlos Trinidad MD at [facility] Left: Finger [employer] : ORTHOPAEDICS 11/18/2015 [id number] / / [id number] documented as of this encounter Visit Diagnoses [...] patient have Health Care Power of Merchandising Stock Associate? No Healthcare Agents on File Name Relationship Healthcare Agent Relationship Communication Estrella Seth Other - (no specific identity) Health Care Power of Merchandising Stock Associate Care Teams Office Machine Inspector Relationship Specialty Start Date End Date Roberto Askew MD [address] [place] [address] PCP - General Internal Medicine 04/10/20 documented as of this encounter
--- OUTSIDE RECORDS SUMMARY | 2023-11-23 07:43 | External Medical Summary | Summary of Care ---
Author Name Unknown Organization [facility] Address [address] [place] [address] Phone [phone] Care Team Providers Care Billing Adjudicator Name Role Phone Roberto Askew MD Primary Care Provider + Reason for Visit * Reason Comments Dosage Adjustment Via Phone (anticoag Cl inic) Encounter Details Date Type Department Care Team (Latest Contact Info) Description 10/08/2023 6:45 AM EST Anticoagulation Pharmacy Call Center [address] [place] [address] [facility] [address] [place] [address] History of pulmonary embolism* Allergies Active Allergy [...] as of this encounter (statuses as of 10/08/2023) Medications Medication Sig Dispensed Refills Start Date [...] day as needed. 0 Active nystatin (NYSTOP) 571446 UNIT/GM powderIndications:Cu taneous candidiasis Apply topically to [...] COPD, group C, by GOLD 2017 classification ([facility]),COPD, group D, by GOLD 2017 classification ([facility] [...] than 8.0% ([facility]) Use 3 times daily as directed 1 [...] than 8.0% ([facility]) Use 3 times daily as directed 300 [...] as of this encounter (statuses as of 10/08/2023) Active Problems Problem Noted Date Diagnosed Date [...] as of this encounter (statuses as of 10/08/2023) Resolved Problems Problem Noted Date Diagnosed Date [...] Calculus of kidney 08/20/2015 8 Overview: right, [place] CT Vitamin D deficiency 01/31/2015 018 Body [...] as of this encounter (statuses as of 10/08/2023) Immunizations Name Administration Dates Next Due COVID-19 mRNA, LNP-s, No Pre serve, 2-Dose Series ([employer]) 01/02/2021,12/05/2020 DTP Vaccine 07/19/2017,04/03/2014 Hepatitis B, 20+ [...] Progress Notes * Keren Sanchez RPh - 10/08/2023 11:28 AM EST Pt remains admitted to [facility]. Per recent CM note: [facility] does not have any bed as this time. Referral emailed to Flory at [employer] ([email or web address]) and faxed to [place]. [facility] will continue to follow up for discharge plans. Keren Sanchez Rph, Pharm.D. Clinical Pharmacist Centralized Clinical Pharmacy Services (CCPS) (formerly Telepharmacy) [phone] 10/08/2023,11:29 AM documented in this encounter Plan of Treatment Health Maintenance Due Date Last Done Comments DISCUSS TOBACCO CESSATION (REFER TO SMARTSET #9354) 1970 HIV Screening 1985 O2 ASSESSMENT COMPLETED IN PAST YEAR FOR COPD 1988 Pneumococcal Vaccine: Pediatrics (0 to 5 Years) and At-Risk Patients (6 to 64 Years) (2 - PCV) 05/22/2010 05/22/2009 Cologuard 2015 Fecal Occult Blood Test 2015 Sigmoidoscopy 2015 *ADVANCE DIRECTIVE NOT ON FILE 02/03/2020 LUNG CANCER SCREENING - USE SMARTSET [id number] 2020 02/10/2019, 07/19/2017, 05/09/2017, Additional history exists [...] this encounter Medical Devices Implanted Type Area Personal Injury Litigation Paralegal Device Identifier Shelf Expiration Date Model / Serial / Lot Tube Flex 3.0x2.5 [id number] - [id number] Implanted:Qty: 1 on 12/07/2014 by Juancarlos Trinidad MD at [facility] Left: Finger [employer] : ORTHOPAEDICS 11/18/2015 [id number] / / [id number] documented as of this encounter Visit Diagnoses [...] the patient have Health Care Power of Traffic Operations Engineer? No Healthcare Agents on File Name Relationship Healthcare Agent Relationship Communication Estrella Seth Other - (no specific identity) Health Care Power of Traffic Operations Engineer Care Teams Billing Adjudicator Relationship Specialty Start Date End Date Roberto Askew MD [address] [place] [address], [place] [address] PCP - General Internal Medicine 04/10/20 documented as of this encounter
--- OUTSIDE RECORDS SUMMARY | 2023-11-23 07:43 | External Medical Summary | Summary of Care ---
Author Name Unknown Organization [facility] Address [address] [place] [address] Phone [phone] Care Team Providers Care Insole Buffer Name Role Phone Roberto Askew MD Primary Care Provider + Reason for Visit * Reason Comments Dosage Adjustment Via Phone (anticoag Cl inic) Encounter Details Date Type Department Care Team (Latest Contact Info) Description 10/12/2023 6:45 AM EST Anticoagulation Pharmacy Call Center [address] [place] [address] [facility] 58 60 [facility] [place] [address] History of pulmonary embolism* Allergies Active Allergy [...] day as needed. 0 Active nystatin (NYSTOP) 519818 UNIT/GM powderIndications:Cu taneous candidiasis Apply topically to [...] MG Oral TabletIndications:Co ronary artery disease involving [place] coronary artery of [...] MG Oral TabletIndications:Co ronary artery disease involving [place] coronary artery of [place] heart without angina pectoris Take 1 Tablet by mouth in the morning. In the morning.. 90 Tablet 1 04/05/2023 Active Metoprolol Succinate ER 50 MG Oral Tablet Extended Release 24 Hour (toPROL XL)Indications:Coron uziel artery disease involving [place]ou[place] coronary artery of [...] less than 8.0% ([facility]) Use 3 times daily as [...] less than 8.0% ([facility]) Use 3 times daily as [...] 01/24/2021 Opioid dependence, uncomplicated 01/22/2021 History of [place] (myocardial infarction) 01/22/2021 Morbid obesity with BMI of 50.0-59.9, adult 09/20 History of subdural hematoma 10/04/2020 Gastroesophageal reflux disease without esophagi tis 10/04/2020 History of subarachnoid hemorrhage 10/04/2020 Coronary artery disease invo lving o[place] heart without angina pectoris 10/04/2020 COPD, [...] of kidney 08/20/2015 8 Overview: right, [place] CT Vitamin D deficiency 01/31/2015 018 Body [...] mRNA, LNP-s, No Pre serve, 2-Dose Series (Dezineforce) 01/02/2021,12/05/2020 DTP Vaccine 07/19/2017,04/03/2014 Hepatitis B, 20+ [...] this encounter Progress Notes * Keren Sanchez, [facility] - 10/12/2023 10:57 AM EST Medication Therapy Disease Management - Anticoagulation Patient: Stanton Malagon Alf | : 1970 Subjective Contacts Type Contact Phone/Fax 10/12/2023 11:15 AM EST Phone (Outgoing) Stanton Milner Vesna (Self) [phone] (H) Left Message Patient-Reported Symptoms: Patient Findings Positives: Hospital admission Comments: PT discharged from [facility] to home. Pt was admitted for UTI. UTI was treated by time of discharge. INR was 2.7, pt advised to take 4mg daily - advised pt to call back to confirm that he had 4mg Rx or we can adjust weekly regimen based on 5mg tablets we have him on file using. Objective Current Warfarin Dose As of 10/12/2023 Warfarin maintenance plan: 5 mg (5 mg x 1) every Wed, Fri; 2.5 mg (5 mg x 0.5) all other days INR Result As of 10/12/2023 INR goal: 2.0-3.0 INR used for dosing: No new INR was available at the time of this encounter. Assessment & Plan Warfarin Plan As of 10/12/2023 Full warfarin instructions: 5 mg every Wed, Fri; 2.5 mg all other days No change documented: Keren Sanchez RPh Next INR check: 10/14/2023 Repeat PT/INR in 2 days(s) Weekly dose: not changed Additional Dosing Information: Description GML(MTuTh) - pt prefers Tues GML at this time Keren Sanchez RPh Clinical Pharmacist 10/12/2023, 11:10 AM documented in this encounter Plan of Treatment Upcoming Encounters Date Type Department Care Team (Late st Contact Info) Description 10/20/2023 5:20 PM EST Office Visit General Internal Medicine [facility] [address] [place] [address] Roberto Askew MD 200 [place] [address] Health Maintenance Due Date Last Done Comments [...] 02/03/2020 LUNG CANCER SCREENING - USE SMARTSET [id number] 2020 02/10/2019, 07/19/2017, 05/09/2017, Additional history exists [...] this encounter Medical Devices Implanted Type Area Industrial Waste Treatment Technician Device Identifier Shelf Expiration Date Model / Serial / Lot Tube Flex 3.0x2.5 [id number] - [id number] Implanted:Qty: 1 on 12/07/2014 by Juancarlos Trinidad MD [place] [facility] Left: Finger [employer] : ORTHOPAEDICS 11/18/2015 [id number] / / [id number] documented as of this encounter Visit Diagnoses [...] the patient have Health Care Power of Collision Technician? No Healthcare Agents on File Name Relationship Healthcare Agent Relationship Communication Estrella Seth Other - (no specific identity) Health Care Power of Collision Technician Care Teams Insole Buffer Relationship Specialty Start Date End Date Roberto Askew MD [address] [place] [place] [address] PCP - General Internal Medicine 04/10/20 documented as of this encounter
--- OUTSIDE RECORDS SUMMARY | 2023-11-23 07:44 | External Medical Summary | Summary of Care ---
Author Name Unknown Organization [facility] Address [address] [place] [address] Phone [phone] Care Team Providers Care Family Sociologist Name Role Phone Roberto Askew MD Primary Care Provider + Reason for Visit * Reason Comments Dosage Adjustment Via Phone (anticoag Cl inic) Encounter Details Date Type Department Care Team (Latest Contact Info) Description 09/29/2023 6:45 AM EST Anticoagulation Pharmacy Call Center [address] [place] [address] [facility] [address] [place] [address] History of pulmonary embolism* Allergies Active Allergy [...] as of this encounter (statuses as of 09/29/2023) Medications Medication Sig Dispensed Refills Start Date [...] day as needed. 0 Active nystatin (NYSTOP) 314281 UNIT/GM powderIndications:Cu taneous candidiasis Apply topically to [...] group C, by GOLD 2017 classification ([facility]),COPD, group D, by GOLD 2017 classification ([facility]) USE 2 PUFFS BY MOUTH EVERY 4 HOURS NEEDED SHORT OF BREATH 6.7 g 5 11/24/2021 Active Magnesium Oxide 400 (241.3 Mg) MG Oral TabletIndications:Co ronary artery disease involving [place] coronary artery of [place] heart without angina pectoris Take by [...] Active Benzonatate 100 MG Oral Capsule (Tessalon Perlalvern) TAKEONE CAPSULE BY MOUTH EVERY MORNING, ONE AT NOON, AND ONE EVERY EVENING, FOR COUGH. 20 Capsule 0 12/30/2022 Active Isosorbide Dinitrate 30 MG Oral TabletIndications:Co ronary artery disease involving [place] coronary artery of [place] heart without angina pectoris Take 1 Tablet by mouth in the morning. In the morning.. 90 Tablet 1 04/05/2023 Active Metoprolol Succinate ER 50 MG Oral Tablet Extended Release 24 Hour (toPROL XL)Indications:Coron uziel artery disease involving [place] coronary artery of [place] heart without angina pectoris TAKE 1 [...] A1c goal of less than 8.0% ([facility]) Use 3 times daily as directed 1 Kit 0 08/31/2023 Active True Metrix Blood Glucose Test In Vitro Strip (Glucose Blood)Indications:Ty pe 2 diabetes mellitus with hemoglobin A1c goal of less than 8.0% ([facility]) Use 3 times daily as directed 300 Strip 3 08/31/2023 Active TRUEplus Lancets 33GIndications:Type 2 diabetes mellitus with hemoglobin A1c goal of less than 8.0% ([facility]) Use 3 times daily [...] as of this encounter (statuses as of 09/29/2023) Active Problems Problem Noted Date Diagnosed Date [...] 01/24/2021 Opioid dependence, uncomplicated 01/22/2021 History of [place] (myocardial infarction) 01/22/2021 Morbid obesity with BMI of 50.0-59.9, adult 09/20 History of subdural hematoma 10/04/2020 Gastroesophageal reflux disease without esophagi tis 10/04/2020 History of subarachnoid hemorrhage 10/04/2020 Coronary artery disease invo lving [place] heart without angina pectoris 10/04/2020 COPD, [...] as of this encounter (statuses as of 09/29/2023) Resolved Problems Problem Noted Date Diagnosed Date [...] Calculus of kidney 08/20/2015 8 Overview: right, [place] CT Vitamin D deficiency 01/31/2015 018 Body [...] as of this encounter (statuses as of 09/29/2023) Immunizations Name Administration Dates Next Due COVID-19 mRNA, LNP-s, No Pre serve, 2-Dose Series (DS Digit[employer] Se[employer]) 01/02/2021,12/05/2020 DTP Vaccine 07/19/2017,04/03/2014 Hepatitis B, 20+ [...] Progress Notes * Keren Sanchez RPh - 09/29/2023 12:59 PM EST PT remains admitted to [facility]. No discharge plans yet. [facility] will continue to follow up. Keren Sanchez Rph, Pharm.D. Clinical Pharmacist Centralized Clinical Pharmacy Services (CCPS) (formerly Telepharmacy) [phone] 09/29/2023,1:01 PM documented in this encounter Plan of [...] 02/03/2020 LUNG CANCER SCREENING - USE SMARTSET [id number] 2020 02/10/2019, 07/19/2017, 05/09/2017, Additional history exists [...] encounter Medical Devices Implanted Type Area Senior Design Engineer Device Identifier Shelf Expiration Date Model / Serial / Lot Tube Flex 3.0x2.5 [id number] - [id number] Implanted:Qty: 1 on 12/07/2014 by Juancarlos Trinidad MD at [facility] Left: Finger [employer] : ORTHOPAEDICS 11/18/2015 [id number] / / [id number] documented as of this encounter Visit Diagnoses [...] the patient have Health Care Power of Labor Crew Supervisor? No Healthcare Agents on File Name Relationship Healthcare Agent Relationship Communication Estrella Seth Other - (no specific identity) Health Care Power of Labor Crew Supervisor Care Teams Family Sociologist Relationship Specialty Start Date End Date Roberto Askew MD [address] [place] [address] PCP - General Internal Medicine 04/10/20 documented as of this encounter
--- OUTSIDE RECORDS SUMMARY | 2023-11-23 07:44 | External Medical Summary | Summary of Care ---
Author Name Unknown Organization [facility] Address [address] [place] [address] Phone [phone] Care Team Providers Care Trimmer Tailer Name Role Phone Roberto Askew MD Primary Care Provider + Reason for Visit * Reason Onset Date Comments Appointment 07/08/2023 Encounter Details Date Type Department Care Team ([facility] st Contact Info) Description 07/08/2023 Telephone Ancillary [facility] [address] [place] [address] Kimmy Hill, RN Appointment Allergies Active Allergy [...] as of this encounter (statuses as of 10/07/2023) Medications Medication Sig Dispensed Refills Start Date [...] day as needed. 0 Active nystatin (NYSTOP) 612039 UNIT/GM powderIndications:C utaneous candidiasis Apply topically to [...] MG Oral TabletIndications:C oronary artery disease involving [place] coronary artery of [place] heart without angina pectoris Take by mouth [...] MG Oral TabletIndications:C oronary artery disease involving [place] coronary artery of [place] heart without angina pectoris Take 1 Tablet by mouth in the morning. In the morning.. 90 Tablet 1 04/05/20 23 Active Metoprolol Succinate ER 50 MG Oral Tablet Extended Release 24 Hour (toPROL XL)Indications:Freddie nary artery disease involving [place] coronary artery of [place] heart without angina pectoris TAKE 1 & [...] ONLY. 39 Tablet 1 05/10/20 23 Active Potassium Chloride Terra ER 20 MEQ Oral Tablet Extended ReleaseIndications: Hypokalemia TAKE ONE TABLET EVERY MORNING AND AT BEDTIME 180 Tablet 2 05/11/20 23 Active Lactobacillus Probiotic Oral Tablet Take 3 Billion Cells by mouth in the morning. For 10 days. 0 05/26/20 Active Cyclobenzaprine HCl 10 MG Oral Tablet (Flexeril)Indicatio ns:Chronic pain syndrome TAKE 1 TABLET TWICE DAILY NEEDED FOR MUSCLE SPASM(S) 60 Tablet 5 05/28/20 Active DULoxetine HCl 60 MG Oral Capsule [...] BEFORE BEDTIME. 270 Tablet 10 07/07/20 Active Accu-Chek Guide Me w/Device KitIndications:Type 2 diabetes mellitus with hemoglobin A1c goal of less than 8.0% (HCC) Use as directed. 1 Kit 0 10/30/19 [...] 100 Each 3 10/30/19 23 023 Discontinued glipiZIDE 10 MG Oral Tablet (Glucotrol)Indicati ons:Diabetes mellitus with nephropathy (HCC) TAKE ONE TABLET BY MOUTH 2 TIMES A DAY 30 MINUTES BEFORE A MEAL 180 Tablet 1 12/11/19 23 023 Discontinued Tamsulosin HCl 0.4 MG Oral Capsule (Flomax) Take 2 Capsules by mouth in the morning. 60 Capsule 1 04/21/20 23 023 Discontinued(Re fill) Atorvastatin Calcium 80 MG Oral Tablet (Lipitor) Take 1 Tablet by mouth in the morning. 90 Tablet 3 05/05/20 23 023 Discontinued Torsemide 100 MG Oral [...] 23 023 Discontinued(Me dication List Clean Up) documented as of this encounter (statuses as of 10/07/2023) Active Problems Problem Noted Date Diagnosed Date [...] hemorrhage 10/04/2020 Coronary artery disease invo lving [place] heart without angina pectoris 10/04/2020 COPD, group [...] as of this encounter (statuses as of 10/07/2023) Resolved Problems Problem Noted Date Diagnosed Date [...] Calculus of kidney 08/20/2015 8 Overview: right, [place] CT Vitamin D deficiency 01/31/2015 018 Body [...] as of this encounter (statuses as of 10/07/2023) Immunizations Name Administration Dates Next Due COVID-19 mRNA, LNP-s, No Pre serve, 2-Dose Series ([employer]) 01/02/2021,12/05/2020 DTP Vaccine 07/19/2017,04/03/2014 Hepatitis B, 20+ [...] Telephone Encounter - Kimmy Hill RN - 07/13/2023 3:16 PM EDT Attempted to call patient 3 times today. Line was busy. Will attempt to contact tomorrow. * Telephone Encounter - Kimmy Hill RN - 07/09/2023 2:25 PM EDT Left message asking patient to please call me back to arrange appointment with PCP. Informed that he has been without a PCP visit for over [address] Askew needed to see himin order to continue prescribing his medications. * Telephone Encounter - Kimmy Hill RN - 07/09/2023 12:49 PM EDT Attempted to call patient again to discuss appointment. Cell phone was busy. * Telephone Encounter - Kimmy Hill RN - 07/08/2023 1:11 PM EDT Called patient and left message to call back to schedule an appointment with Dr. Askew. documented in this encounter Plan of Treatment Upcoming Encounters Date Type Department Care Team (Late st Contact Info) Description 10/08/2023 6:45 AM EST Anticoagulation Pharmacy Call Center [address] [place] [address] [facility], [facility] [address] [place] [address] Health Maintenance Due Date Last Done Comments DISCUSS TOBACCO CESSATION (REFER TO SMARTSET #4143) 1970 HIV Screening 1985 O2 ASSESSMENT COMPLETED IN PAST YEAR FOR COPD 1988 Pneumococcal Vaccine: Pediatrics (0 to 5 Years) and At-Risk Patients (6 to 64 Years) (2 - PCV) 05/22/2010 05/22/2009 Cologuard 2015 Fecal Occult Blood Test 2015 Sigmoidoscopy 2015 *ADVANCE DIRECTIVE NOT ON FILE 02/03/2020 LUNG CANCER SCREENING - USE SMARTSET [id number] 2020 02/10/2019, 07/19/2017, 05/09/2017, Additional history exists [...] encounter Medical Devices Implanted Type Area Industrial Maintenance Electrician Device Identifier Shelf Expiration Date Model / Serial / Lot Tube Flex 3.0x2.5 [id number] - [id number] Implanted:Qty: 1 on 12/07/2014 by Juancarlos Trinidad MD at [facility] Left: Finger [employer] : ORTHOPAEDICS 11/18/2015 [id number] / / [id number] documented as of this encounter Advance Directives [...] the patient have Health Care Power of Drier Take Off Tender? No Healthcare Agents on File Name Relationship Healthcare Agent Relationship Communication Estrella Seth Other - (no specific identity) Health Care Power of Drier Take Off Tender Care Teams Trimmer Tailer Relationship Specialty Start Date End Date Roberto Askew MD [address] [place] [address] PCP - General Internal Medicine 04/10/20 documented as of this encounter
--- OUTSIDE RECORDS SUMMARY | 2023-11-23 07:44 | External Medical Summary | Summary of Care ---
Author Name Unknown Organization [facility] Address [address] [place] [address] Phone [phone] Care Team Providers Care Bottle Washer Machine Name Role Phone Roberto Askew MD Primary Care Provider + Reason for Visit * Reason Comments Dosage Adjustment Via Phone (anticoag Cl inic) Encounter Details Date Type Department Care Team (Latest Contact Info) Description 10/06/2023 6:45 AM EST Anticoagulation Pharmacy Call Center [phone] [place] [address] [facility] [address] [place] [address] History of pulmonary embolism* Allergies Active Allergy [...] as of this encounter (statuses as of 10/06/2023) Medications Medication Sig Dispensed Refills Start Date [...] day as needed. 0 Active nystatin (NYSTOP) 898397 UNIT/GM powderIndications:Cu taneous candidiasis Apply topically to [...] COPD, group C, by GOLD 2017 classification ([facility]),COPD, group D, by GOLD 2017 classification ([facility]) USE 2 PUFFS BY MOUTH EVERY 4 HOURS NEEDED SHORT OF BREATH 6.7 g 5 11/24/2021 Active Magnesium Oxide 400 (241.3 Mg) MG Oral TabletIndications:Co ronary artery disease involving [place] coronary artery of [...] MG Oral TabletIndications:Co ronary artery disease involving [place] coronary artery of [place] heart without angina pectoris Take 1 Tablet by mouth in the morning. In the morning.. 90 Tablet 1 04/05/2023 Active Metoprolol Succinate ER 50 MG Oral Tablet Extended Release 24 Hour (toPROL XL)Indications:Coron uziel artery disease involving [place] coronary artery of [...] less than 8.0% ([facility]) Use 3 times daily as [...] less than 8.0% ([facility]) Use 3 times daily as [...] as of this encounter (statuses as of 10/06/2023) Active Problems Problem Noted Date Diagnosed Date [...] as of this encounter (statuses as of 10/06/2023) Resolved Problems Problem Noted Date Diagnosed Date [...] Calculus of kidney 08/20/2015 8 Overview: right, [place] CT Vitamin D deficiency 01/31/2015 018 Body [...] as of this encounter (statuses as of 10/06/2023) Immunizations Name Administration Dates Next Due COVID-19 mRNA, LNP-s, No Pre serve, 2-Dose Series ([employer]) 01/02/2021,12/05/2020 DTP Vaccine 07/19/2017,04/03/2014 Hepatitis B, 20+ [...] Progress Notes * Keren Sanchez RPh - 10/06/2023 9:42 AM EST Pt remains admitted to [facility]. Per today's note d/c plans uncertain at this time. [facility] will continue to follow up. Keren Sanchez Rph, Pharm.D. Clinical Pharmacist Centralized Clinical Pharmacy Services (CCPS) (formerly Telepharmacy) [phone] 10/06/2023,9:43 AM documented in this encounter Plan of Treatment Health Maintenance Due Date Last Done Comments DISCUSS TOBACCO CESSATION (REFER TO SMARTSET #2374) 1970 HIV Screening 1985 O2 ASSESSMENT COMPLETED IN PAST YEAR FOR COPD 1988 Pneumococcal Vaccine: Pediatrics (0 to 5 Years) and At-Risk Patients (6 to 64 Years) (2 - PCV) 05/22/2010 05/22/2009 Cologuard 2015 Fecal Occult Blood Test 2015 Sigmoidoscopy 2015 *ADVANCE DIRECTIVE NOT ON FILE 02/03/2020 LUNG CANCER SCREENING - USE SMARTSET [id number] 2020 02/10/2019, 07/19/2017, 05/09/2017, Additional history exists [...] this encounter Medical Devices Implanted Type Area Hydrate Thickener Operator Device Identifier Shelf Expiration Date Model / Serial / Lot Tube Flex 3.0x2.5 [id number] - [id number] Implanted:Qty: 1 on 12/07/2014 by Juancarlos Trinidad MD [place] [facility] [place] Left: Finger [employer] : ORTHOPAEDICS 11/18/2015 [id number] / / [id number] documented as of this encounter Visit Diagnoses [...] the patient have Health Care Power of Disposition Clerk? No Healthcare Agents on File Name Relationship Healthcare Agent Relationship Communication Estrella Seth Other - (no specific identity) Health Care Power of Disposition Clerk Care Teams Bottle Washer Machine Relationship Specialty Start Date End Date Roberto Askew MD [address] [place] [address] PCP - General Internal Medicine 04/10/20 documented as of this encounter
--- OUTSIDE RECORDS SUMMARY | 2023-11-23 07:44 | External Medical Summary | Summary of Care ---
Author Name Unknown Organization [facility] Address [address] [place] [address] Phone [phone] Care Team Providers Care Walking Dragline Oiler Name Role Phone Roberto Askew MD Primary Care Provider + Reason for Visit * Reason Comments Dosage Adjustment Via Phone (anticoag Cl inic) Encounter Details Date Type Department Care Team (Latest Contact Info) Description 10/01/2023 6:45 AM EST Anticoagulation Pharmacy Call Center [phone] [place] [address] [facility] [address] [place] [address] History of pulmonary embolism* Allergies Active Allergy [...] as of this encounter (statuses as of 10/01/2023) Medications Medication Sig Dispensed Refills Start Date [...] day as needed. 0 Active nystatin (NYSTOP) 400654 UNIT/GM powderIndications:Cu taneous candidiasis Apply topically to [...] COPD, group C, by GOLD 2017 classification ([facility]),COPD, group D, by GOLD 2017 classification ([facility]) USE 2 PUFFS BY MOUTH EVERY 4 HOURS NEEDED SHORT OF BREATH 6.7 g 5 11/24/2021 Active Magnesium Oxide 400 (241.3 Mg) MG Oral TabletIndications:Co ronary artery disease involving [place] coronary artery of [place] heart without angina pectoris Take by mouth [...] MG Oral TabletIndications:Co ronary artery disease involving [place] coronary artery of [place] heart without angina pectoris Take 1 Tablet by mouth in the morning. In the morning.. 90 Tablet 1 04/05/2023 Active Metoprolol Succinate ER 50 MG Oral Tablet Extended Release 24 Hour (toPROL XL)Indications:Coron uziel artery disease involving [place] coronary artery of [place] heart without angina pectoris TAKE 1 & [...] of less than 8.0% ([facility]) Use 3 times daily as directed 1 Kit 0 08/31/2023 Active True Metrix Blood Glucose Test In Vitro Strip (Glucose Blood)Indications:Ty pe 2 diabetes mellitus with hemoglobin A1c goal of less than 8.0% (HCC) Use 3 times daily as directed 300 Strip 3 08/31/2023 Active TRUEplus Lancets 33GIndications:Type 2 diabetes mellitus with hemoglobin A1c goal of less than 8.0% ([facility]) Use 3 times daily as directed [...] as of this encounter (statuses as of 10/01/2023) Active Problems Problem Noted Date Diagnosed Date [...] 01/24/2021 Opioid dependence, uncomplicated 01/22/2021 History of [place] (myocardial infarction) 01/22/2021 Morbid obesity with BMI of 50.0-59.9, adult 09/20 History of subdural hematoma 10/04/2020 Gastroesophageal reflux disease without esophagi tis 10/04/2020 History of subarachnoid hemorrhage 10/04/2020 Coronary artery disease invo lving [place] heart without angina pectoris 10/04/2020 COPD, group [...] as of this encounter (statuses as of 10/01/2023) Resolved Problems Problem Noted Date Diagnosed Date [...] Calculus of kidney 08/20/2015 8 Overview: right, [place] CT Vitamin D deficiency 01/31/2015 018 Body [...] as of this encounter (statuses as of 10/01/2023) Immunizations Name Administration Dates Next Due COVID-19 mRNA, LNP-s, No Pre serve, 2-Dose Series ([facility]) 01/02/2021,12/05/2020 DTP Vaccine 07/19/2017,04/03/2014 Hepatitis B, 20+ [...] Progress Notes * Alexandra Carrillo RPh - 10/01/2023 1:18 PM EST Pt remains admitted at [facility] to continue follow-up efforts for discharge. Updated [facility] trackerwith warfarin dosing and INRs since admission. Thanks, Louis DavidsonD Clinical Pharmacist Centralized Clinical Pharmacy Services (CCPS) (Formerly Telepharmacy) [phone] 10/01/2023 1:24 PM documented in this encounter Plan of Treatment Upcoming Encounters Date Type Department Care Team (Late st Contact Info) Description 10/04/2023 6:45 AM EST Anticoagulation Pharmacy Call Center [address] [facility] [place] [address] [facility] [address] [facility] [place] [address] Health Maintenance Due Date Last Done Comments DISCUSS TOBACCO CESSATION (REFER TO SMARTSET #1808) 1970 HIV Screening 1985 O2 ASSESSMENT COMPLETED IN PAST YEAR FOR COPD 1988 Pneumococcal Vaccine: Pediatrics (0 to 5 Years) and At-Risk Patients (6 to 64 Years) (2 - PCV) 05/22/2010 05/22/2009 Cologuard 2015 Fecal Occult Blood Test 2015 Sigmoidoscopy 2015 *ADVANCE DIRECTIVE NOT ON FILE 02/03/2020 LUNG CANCER SCREENING - USE SMARTSET [id number] 2020 02/10/2019, 07/19/2017, 05/09/2017, Additional history exists [...] this encounter Medical Devices Implanted Type Area Media Librarian Device Identifier Shelf Expiration Date Model / Serial / Lot Tube Flex 3.0x2.5 [id number] - [id number] Implanted:Qty: 1 on 12/07/2014 by Juancarlos Trinidad MD at [place] [facility] [place] Left: Finger [employer] : ORTHOPAEDICS 11/18/2015 [id number] / / [id number] documented as of this encounter Procedures Procedure Name Priority Date/Time Associated Diagnosis Comments OUTSIDE LAB-PT/INR Routine 10/01/2023 OUTSIDE LAB-PT/INR Routine 09/30/2023 OUTSIDE LAB-PT/INR Routine 09/29/2023 OUTSIDE LAB-PT/INR Routine 09/28/2023 OUTSIDE LAB-PT/INR Routine 09/27/2023 OUTSIDE LAB-PT/INR Routine 09/26/2023 OUTSIDE LAB-PT/INR Routine 09/25/2023 OUTSIDE LAB-PT/INR Routine 09/24/2023 OUTSIDE LAB-PT/INR Routine 09/23/2023 OUTSIDE LAB-PT/INR Routine 09/22/2023 OUTSIDE LAB-PT/INR Routine 09/21/2023 OUTSIDE LAB-PT/INR Routine 09/20/2023 OUTSIDE LAB-PT/INR Routine 09/19/2023 documented in this encounter Results * OUTSIDE LAB-PT/INR (10/01/2023) [facility] INR-OUTSIDE LAB 1.6 10/01/2023 History Per Patient LABORATORY * OUTSIDE LAB-PT/INR (09/30/2023) [facility] INR-OUTSIDE LAB 2.2 09/30/2023 History Per Patient LABORATORY * OUTSIDE LAB-PT/INR (09/29/2023) [facility] INR-OUTSIDE LAB 3.3 09/29/2023 History Per Patient LABORATORY * OUTSIDE LAB-PT/INR (09/28/2023) [facility] INROUTSIDE LAB 4.0 09/28/2023 History Per Patient LABORATORY * OUTSIDE LAB-PT/INR (09/27/2023) [facility] INR-OUTSIDE LAB 3.7 09/27/2023 History Per Patient LABORATORY * OUTSIDE LAB-PT/INR (09/26/2023) [facility] INR-OUTSIDE LAB 2.6 09/26/2023 History Per Patient LABORATORY * OUTSIDE LAB-PT/INR (09/25/2023) [facility] INR-OUTSIDE LAB 1.7 09/25/2023 History Per Patient LABORATORY * OUTSIDE LAB-PT/INR (09/24/2023) [facility] INR-OUTSIDE LAB 1.6 09/24/2023 History Per Patient LABORATORY * OUTSIDE LAB-PT/INR (09/23/2023) [facility] INR-OUTSIDE LAB 1.4 09/23/2023 History Per Patient LABORATORY * OUTSIDE LAB-PT/INR (09/22/2023) [facility] INR-OUTSIDE LAB 1.4 09/22/2023 History Per Patient LABORATORY * OUTSIDE LAB-PT/INR (09/21/2023) [facility] INR-OUTSIDE LAB 1.7 09/21/2023 History Per Patient LABORATORY * OUTSIDE LAB-PT/INR (09/20/2023) [facility] INR-OUTSIDE LAB 6.8 09/20/2023 History Per Patient LABORATORY * OUTSIDE LAB-PT/INR (09/19/2023) [facility] INR-OUTSIDE LAB >9.5 09/19/2023 History Per Patient LABORATORY documented in this [...] the patient have Health Care Power of Rope Maker? No Healthcare Agents on File Name Relationship Healthcare Agent Relationship Communication Estrella Seth Other - (no specific identity) Health Care Power of Rope Maker Care Teams Walking Dragline Oiler Relationship Specialty Start Date End Date Roberto Askew MD [address] [place] [address], [place] [address] PCP - General Internal Medicine 04/10/20 documented as of this encounter
--- OUTSIDE RECORDS SUMMARY | 2023-11-23 07:44 | External Medical Summary | Summary of Care ---
Author Name Unknown Organization [facility] Address [address] [place] [address] Phone [phone] Care Team Providers Care Supervisor Metal Placing Name Role Phone Roberto Askew MD Primary Care Provider + Reason for Visit * Reason Comments Dosage Adjustment Via Phone (anticoag Cl inic) Encounter Details Date Type Department Care Team (Latest Contact Info) Description 10/04/2023 6:45 AM EST Anticoagulation Pharmacy Call Center [phone] [place] [address] [facility] [address] [place] [address] History of pulmonary embolism* Allergies Active Allergy [...] as of this encounter (statuses as of 10/04/2023) Medications Medication Sig Dispensed Refills Start Date [...] day as needed. 0 Active nystatin (NYSTOP) 176415 UNIT/GM powderIndications:Cu taneous candidiasis Apply topically to [...] MG Oral TabletIndications:Co ronary artery disease involving [place] coronary artery of [place] heart without angina pectoris Take by [...] MG Oral TabletIndications:Co ronary artery disease involving [place] coronary artery of [place] heart without angina pectoris Take 1 Tablet by mouth in the morning. In the morning.. 90 Tablet 1 04/05/2023 Active Metoprolol Succinate ER 50 MG Oral Tablet Extended Release 24 Hour (toPROL XL)Indications:Coron uziel artery disease involving [place] coronary artery of [place] heart without angina pectoris TAKE 1 [...] [facility]) Use 3 times daily as directed 1 [...] as of this encounter (statuses as of 10/04/2023) Active Problems Problem Noted Date Diagnosed Date [...] 01/24/2021 Opioid dependence, uncomplicated 01/22/2021 History of [place] (myocardial infarction) 01/22/2021 Morbid obesity with BMI of 50.0-59.9, adult 09/20 History of subdural hematoma 10/04/2020 Gastroesophageal reflux disease without esophagi tis 10/04/2020 History of subarachnoid hemorrhage 10/04/2020 Coronary artery disease invo lving [place] heart without angina pectoris 10/04/2020 COPD, [...] as of this encounter (statuses as of 10/04/2023) Resolved Problems Problem Noted Date Diagnosed Date [...] Calculus of kidney 08/20/2015 8 Overview: right, [place] CT Vitamin D deficiency 01/31/2015 018 Body [...] as of this encounter (statuses as of 10/04/2023) Immunizations Name Administration Dates Next Due COVID-19 mRNA, LNP-s, No Pre serve, 2-Dose Series ([employer]) 01/02/2021,12/05/2020 DTP Vaccine 07/19/2017,04/03/2014 Hepatitis B, 20+ [...] Progress Notes * Keren Sanchez RPh - 10/04/2023 12:05 PM EST PT remains admitted to [facility]. [facility] will continue to follow up for discharge plans. Keren Sanchez Rph, Pharm.D. Clinical Pharmacist Centralized Clinical Pharmacy Services (CCPS) (formerly Telepharmacy) [phone] 10/04/2023,12:06 PM documented in this encounter Plan of Treatment Health Maintenance Due Date Last Done Comments DISCUSS TOBACCO CESSATION (REFER TO SMARTSET #0667) 1970 HIV Screening 1985 O2 ASSESSMENT COMPLETED IN PAST YEAR FOR COPD 1988 Pneumococcal Vaccine: Pediatrics (0 to 5 Years) and At-Risk Patients (6 to 64 Years) (2 - PCV) 05/22/2010 05/22/2009 Cologuard 2015 Fecal Occult Blood Test 2015 Sigmoidoscopy 2015 *ADVANCE DIRECTIVE NOT ON FILE 02/03/2020 LUNG CANCER SCREENING - USE SMARTSET [id number] 2020 02/10/2019, 07/19/2017, 05/09/2017, Additional history exists [...] this encounter Medical Devices Implanted Type Area Monitoring Tech Device Identifier Shelf Expiration Date Model / Serial / Lot Tube Flex 3.0x2.5 [id number] - [id number] Implanted:Qty: 1 on 12/07/2014 by Juancarlos Trinidad MD at [facility] Left: Finger [employer] : ORTHOPAEDICS 11/18/2015 [id number] / / [id number] documented as of this encounter Visit Diagnoses [...] patient have Health Care Power of Assistant Shift Supervisor? No Healthcare Agents on File Name Relationship Healthcare Agent Relationship Communication Estrella Seth Other - (no specific identity) Health Care Power of Assistant Shift Supervisor Care Teams Supervisor Metal Placing Relationship Specialty Start Date End Date Roberto Askew MD [address] [place] [address] PCP - General Internal Medicine 04/10/20 documented as of this encounter
--- OUTSIDE RECORDS SUMMARY | 2023-11-23 07:45 | External Medical Summary | Summary of Care ---
Author Name Unknown Organization [facility] Address [address] [place] [address] Phone [phone] Care Team Providers Care Heavy Equipment Mechanic Name Role Phone Roberto Askew MD Primary Care Provider + Reason for Visit * Reason Comments Dosage Adjustment Via Phone (anticoag Cl inic) Encounter Details Date Type Department Care Team (Latest Contact Info) Description 09/24/2023 6:00 AM EST Anticoagulation Pharmacy Call Center [phone] [facility] [place] [address] [facility] [address] [facility] [address] History of pulmonary embolism* Allergies Active Allergy [...] as of this encounter (statuses as of 09/24/2023) Medications Medication Sig Dispensed Refills Start Date [...] day as needed. 0 Active nystatin (NYSTOP) 674908 UNIT/GM powderIndications:Cu taneous candidiasis Apply topically to [...] MG Oral TabletIndications:Co ronary artery disease involving [place] coronary artery of [place] heart without angina pectoris Take by mouth [...] MG Oral TabletIndications:Co ronary artery disease involving [place] coronary artery of [place] heart without angina pectoris Take 1 Tablet by mouth in the morning. In the morning.. 90 Tablet 1 04/05/2023 Active Metoprolol Succinate ER 50 MG Oral Tablet Extended Release 24 Hour (toPROL XL)Indications:Coron uziel artery disease involving [place] coronary artery of [place] heart without angina pectoris TAKE 1 & [...] as of this encounter (statuses as of 09/24/2023) Active Problems Problem Noted Date Diagnosed Date [...] hemorrhage 10/04/2020 Coronary artery disease invo lving [place] heart without angina pectoris 10/04/2020 COPD, group [...] as of this encounter (statuses as of 09/24/2023) Resolved Problems Problem Noted Date Diagnosed Date [...] Calculus of kidney 08/20/2015 8 Overview: right, [place] CT Vitamin D deficiency 01/31/2015 018 Body [...] as of this encounter (statuses as of 09/24/2023) Immunizations Name Administration Dates Next Due COVID-19 mRNA, LNP-s, No Pre serve, 2-Dose Series (Solar Notion) 01/02/2021,12/05/2020 DTP Vaccine 07/19/2017,04/03/2014 Hepatitis B, 20+ [...] Progress Notes * Keren Sanchez RPh - 09/24/2023 9:25 AM EST Noted, [facility] will follow up at discharge. Keren Sanchez Rph, Pharm.D. Clinical Pharmacist [facility] ([facility]) (formerly Telepharmacy) [phone] 09/24/2023,9:25 AM * Stephani Soto primer assembler - 09/24/2023 7:36 AM EST Pt is currently admitted to [facility]. Please advise. Thank you, Stephani Soto Interlocking Tower Operator [facility] ([facility]) (formerly Telepharmacy) [phone] 09/24/2023,7:36 AM documented in this encounter Plan of Treatment Upcoming Encounters Date Type Department Care Team (Late st Contact Info) Description 09/27/2023 6:45 AM EST Anticoagulation Pharmacy Call Center WB [address] [facility] [place] [address] [facility], [facility] [address] 10/01/2023 12:00 PM EST Office Visit General Internal Medicine [facility] [address] [facility] [place] [address] Roberto Askew MD [address] [place] [address] Health Maintenance Due Date Last Done Comments DISCUSS TOBACCO CESSATION (REFER TO SMARTSET #4910) 1970 HIV Screening 1985 O2 ASSESSMENT COMPLETED IN PAST YEAR FOR COPD 1988 Pneumococcal Vaccine: Pediatrics (0 to 5 Years) and At-Risk Patients (6 to 64 Years) (2 - PCV) 05/22/2010 05/22/2009 Cologuard 2015 Fecal Occult Blood Test 2015 Sigmoidoscopy 2015 *ADVANCE DIRECTIVE NOT ON FILE 02/03/2020 LUNG CANCER SCREENING - USE SMARTSET 14932 2020 02/10/2019, 07/19/2017, 05/09/2017, Additional history exists [...] encounter Medical Devices Implanted Type Area Manager Cardiovascular Device Identifier Shelf Expiration Date Model / Serial / Lot Tube Flex 3.0x2.5 [id number] - [id number] Implanted:Qty: 1 on 12/07/2014 by Juancarlos Trinidad MD at [facility] Left: Finger LANDON : ORTHOPAEDICS 11/18/2015 [id number] / / [id number] documented as of this encounter Visit Diagnoses [...] the patient have Health Care Power of Internal Medicine Physician? No Healthcare Agents on File Name Relationship Healthcare Agent Relationship Communication Estrella Seth Other - (no specific identity) Health Care Power of Internal Medicine Physician [phone] ([place]) Care Teams Heavy Equipment Mechanic Relationship Specialty Start Date End Date Roberto Askew MD [address] [place] [address] PCP - General Internal Medicine 04/10/20 documented as of this encounter
--- OUTSIDE RECORDS SUMMARY | 2023-11-23 07:45 | External Medical Summary | Summary of Care ---
Author Name Unknown Organization [facility] Address [address] [place] [address] Phone [phone] Care Team Providers Care Mastic Floor Layer Name Role Phone Roberto Askew MD Primary Care Provider + Reason for Visit * Reason Comments Dosage Adjustment Via Phone (anticoag Cl inic) Encounter Details Date Type Department Care Team (Latest Contact Info) Description 09/22/2023 6:00 AM EST Anticoagulation Pharmacy Call Center [phone] [facility] [address] [facility] [address] [place] [address] History of pulmonary embolism* Allergies Active Allergy [...] as of this encounter (statuses as of 09/22/2023) Medications Medication Sig Dispensed Refills Start Date [...] day as needed. 0 Active nystatin (NYSTOP) 075357 UNIT/GM powderIndications:Cu taneous candidiasis Apply topically to [...] C, by GOLD 2017 classification ([facility]),COPD, group D, by GOLD 2017 classification ([facility]) USE 2 PUFFS BY MOUTH EVERY 4 HOURS NEEDED SHORT OF BREATH 6.7 g 5 11/24/2021 Active Magnesium Oxide 400 (241.3 Mg) MG Oral TabletIndications:Co ronary artery disease involving [place] coronary artery [...] MG Oral TabletIndications:Co ronary artery disease involving [place] coronary artery of [place] heart without angina pectoris Take 1 Tablet by mouth in the morning. In the morning.. 90 Tablet 1 04/05/2023 Active Metoprolol Succinate ER 50 MG Oral Tablet Extended Release 24 Hour (toPROL XL)Indications:Coron uziel artery disease involving [place] coronary artery [...] goal of less than 8.0% ([facility]) Use 3 times daily as directed 1 Kit 0 08/31/2023 Active True Metrix Blood Glucose Test In Vitro Strip (Glucose Blood)Indications:Ty pe 2 diabetes mellitus with hemoglobin A1c goal of less than 8.0% (HCC) Use 3 times daily as directed 300 Strip 3 08/31/2023 Active TRUEplus Lancets 33GIndications:Type 2 diabetes mellitus with hemoglobin A1c goal of less than 8.0% ([facility]) Use 3 times daily as [...] as of this encounter (statuses as of 09/22/2023) Active Problems Problem Noted Date Diagnosed Date [...] hemorrhage 10/04/2020 Coronary artery disease invo lving [place] heart without angina pectoris 10/04/2020 [...] as of this encounter (statuses as of 09/22/2023) Resolved Problems Problem Noted Date Diagnosed Date [...] Calculus of kidney 08/20/2015 8 Overview: right, [place] CT Vitamin D deficiency 01/31/2015 018 Body [...] as of this encounter (statuses as of 09/22/2023) Immunizations Name Administration Dates Next Due COVID-19 mRNA, LNP-s, No Pre serve, 2-Dose Series (Done In :60 Seconds) 01/02/2021,12/05/2020 DTP Vaccine 07/19/2017,04/03/2014 Hepatitis B, 20+ [...] of this encounter Progress Notes * Stephani Soto handbag parts cutter - 09/22/2023 7:43 AM EST Pt seen by [facility] on 09/21/23, no INR resulted. Chart routed to mobile lab asking that pt be rescheduledfor pt/inr draw on 09/23/23. F/U call scheduled for 09/24/23 Thank you, Stephani Soto International Marketing Specialist [facility] ([facility]) (formerly Telepharmacy) [phone] 09/22/2023,7:44 AM documented in this encounter Plan of Treatment Upcoming Encounters Date Type Department Care Team (Late st Contact Info) Description 09/24/2023 6:00 AM EST Anticoagulation Pharmacy Call Center WB [address] [facility] [place] [address] [facility] [address] 60 [facility] [place] [address] Health Maintenance Due Date Last Done Comments [...] 02/03/2020 LUNG CANCER SCREENING - USE SMARTSET 26975 2020 02/10/2019, 07/19/2017, 05/09/2017, Additional history exists [...] this encounter Medical Devices Implanted Type Area Commercial Airline Pilot Device Identifier Shelf Expiration Date Model / Serial / Lot Tube Flex 3.0x2.5 [id number] - [id number] Implanted:Qty: 1 on 12/07/2014 by Juancarlos Trinidad MD at [facility] Left: Finger [employer]ON : ORTHOPAEDICS 11/18/2015 [id number] / / [id number] documented as of this encounter Visit Diagnoses [...] the patient have Health Care Power of [place] Gluer? No Healthcare Agents on File Name Relationship Healthcare Agent Relationship Communication Estrella Seth Other - (no specific identity) Health Care Power of [place] Gluer Care Teams Mastic Floor Layer Relationship Specialty Start Date End Date Roberto Askew MD [address] [place] [address], [place] [address] PCP - General Internal Medicine 04/10/20 documented as of this encounter
--- OUTSIDE RECORDS SUMMARY | 2023-11-23 07:45 | External Medical Summary | Summary of Care ---
Author Name Unknown Organization [facility] Address [address] [place] [address] Phone [phone] Care Team Providers Care School Standards Coach Name Role Phone Roberto Askew MD Primary Care Provider + Reason for Visit * Reason Comments Dosage Adjustment Via Phone (anticoag Cl inic) Encounter Details Date Type Department Care Team (Latest Contact Info) Description 09/27/2023 6:45 AM EST Anticoagulation Pharmacy Call Center [phone] [place] [address] [facility] [address] [place] [address] History of pulmonary embolism* Allergies Active Allergy [...] as of this encounter (statuses as of 09/27/2023) Medications Medication Sig Dispensed Refills Start Date [...] day as needed. 0 Active nystatin (NYSTOP) 999816 UNIT/GM powderIndications:Cu taneous candidiasis Apply topically to [...] C, by GOLD 2017 classification ([facility]),COPD, group D, by GOLD 2017 classification ([facility]) USE 2 PUFFS BY MOUTH EVERY 4 HOURS NEEDED SHORT OF BREATH 6.7 g 5 11/24/2021 Active Magnesium Oxide 400 (241.3 Mg) MG Oral TabletIndications:Co ronary artery disease involving [place] coronary artery of [place] heart without angina pectoris Take by mouth [...] MG Oral TabletIndications:Co ronary artery disease involving [place] coronary artery of [place] heart without angina pectoris Take 1 Tablet by mouth in the morning. In the morning.. 90 Tablet 1 04/05/2023 Active Metoprolol Succinate ER 50 MG Oral Tablet Extended Release 24 Hour (toPROL XL)Indications:Coron uziel artery disease involving [place] coronary artery of [place] heart without angina pectoris TAKE 1 & [...] goal of less than 8.0% ([facility]) Use 3 times daily as directed 1 Kit 0 08/31/2023 Active True Metrix Blood Glucose Test In Vitro Strip (Glucose Blood)Indications:Ty pe 2 diabetes mellitus with hemoglobin A1c goal of less than 8.0% (HCC) Use 3 times daily as directed 300 Strip 3 08/31/2023 Active TRUEplus Lancets 33GIndications:Type 2 diabetes mellitus with hemoglobin A1c goal of less than 8.0% ([facility]) Use 3 times daily as [...] as of this encounter (statuses as of 09/27/2023) Active Problems Problem Noted Date Diagnosed Date [...] hemorrhage 10/04/2020 Coronary artery disease invo lving [place] heart without angina pectoris 10/04/2020 COPD, group [...] as of this encounter (statuses as of 09/27/2023) Resolved Problems Problem Noted Date Diagnosed Date [...] Calculus of kidney 08/20/2015 8 Overview: right, [place] CT Vitamin D deficiency 01/31/2015 018 Body [...] as of this encounter (statuses as of 09/27/2023) Immunizations Name Administration Dates Next Due COVID-19 mRNA, LNP-s, No Pre serve, 2-Dose Series (Techfoo) 01/02/2021,12/05/2020 DTP Vaccine 07/19/2017,04/03/2014 Hepatitis B, 20+ [...] Progress Notes * Keren Sanchez RPh - 09/27/2023 2:44 PM EST Pt remains in [facility] in PCU. [facility] will follow up at discharge. Keren Sanchez Rph, Pharm.D. Clinical Pharmacist Centralized Clinical Pharmacy Services ([facility]) (formerly Telepharmacy) [phone] 09/27/2023,2:45 PM documented in this encounter Plan of Treatment Health Maintenance Due Date Last Done Comments DISCUSS TOBACCO CESSATION (REFER TO SMARTSET #329) 1970 HIV Screening 1985 O2 ASSESSMENT COMPLETED IN PAST YEAR FOR COPD 1988 Pneumococcal Vaccine: Pediatrics (0 to 5 Years) and At-Risk Patients (6 to 64 Years) (2 - PCV) 05/22/2010 05/22/2009 Cologuard 2015 Fecal Occult Blood Test 2015 Sigmoidoscopy 2015 *ADVANCE DIRECTIVE NOT ON FILE 02/03/2020 LUNG CANCER SCREENING - USE SMARTSET 14968 2020 02/10/2019, 07/19/2017, 05/09/2017, Additional history exists [...] this encounter Medical Devices Implanted Type Area Real Estate Services Coordinator Device Identifier Shelf Expiration Date Model / Serial / Lot Tube Flex 3.0x2.5 [id number] - [id number] Implanted:Qty: 1 on 12/07/2014 by Juancarlos Trinidad MD at [facility] Left: Finger [employer]ANDON : ORTHOPAEDICS 11/18/2015 [id number] / / [id number] documented as of this encounter Visit Diagnoses [...] the patient have Health Care Power of Ur Coordinator? No Healthcare Agents on File Name Relationship Healthcare Agent Relationship Communication Estrella Seth Other - (no specific identity) Health Care Power of Ur Coordinator Care Teams School Standards Coach Relationship Specialty Start Date End Date Roberto Askew MD [address] [place] [address] PCP - General Internal Medicine 04/10/20 documented as of this encounter
[2023-11-23 08:07] LABS: Estimated Average Glucose 200 mg/dl; Hemoglobin A1C 8.6 % (4.5-5.6)
--- NOTE | 2023-11-23 08:31 | Electrocardiogram Report ---
Test Reason : Blood Pressure : / mmHG Vent. Rate : 066 BPM Atrial Rate : 066 BPM P-R Int : 152 ms QRS Dur : 106 ms QT Int : 420 ms P-R-T Axes : 051 072 077 degrees QTc Int : 440 ms Normal sinus rhythm Normal ECG When compared with ECG of 19-SEP-2023 17:39, Nonspecific ST and T wave abnormality no longer present Confirmed by Da Browning ([id number]) on 11/23/2023 8:31:16 AM Referred By: REFERRED SELF Confirmed By:Da Browning
[2023-11-23] MEDS: FLUTICASONE/VILANTEROL 200/25MCG 14 PUFFS/INHALER INH SCH (09:20)
[2023-11-23] MEDS: FLUTICASONE PROPIONATE NA SPR 16 GM BTL NAE SCH (09:21)
[2023-11-23] MEDS: INSULIN HUMAN REGULAR PER UNIT 4 UNITS in SYRINGE 3.96 ML IV STA (09:22)
[2023-11-23] MEDS: POTASSIUM CHLORIDE CRTAB 20 MEQ TABCR PO STA (09:23)
[2023-11-23] MEDS: MAGNESIUM OXIDE 400 MG TAB PO SCH (09:23)
[2023-11-23] MEDS: FAMOTIDINE 20 MG TAB PO SCH (09:23)
[2023-11-23] MEDS: TORSEMIDE 10 MG TAB PO SCH (09:23)
[2023-11-23] MEDS: GABAPENTIN 800 MG TAB PO SCH (09:23)
[2023-11-23] MEDS: FINASTERIDE 5 MG TAB PO SCH (09:23)
[2023-11-23] MEDS: ISOSORBIDE MONO EXTENDED REL 30 MG TABCR PO SCH (09:23)
[2023-11-23] MEDS: POTASSIUM CHLORIDE CRTAB 20 MEQ TABCR PO SCH (09:24)
[2023-11-23] MEDS: METOPROLOL SUCC 25MG EXT REL TAB PO SCH (09:24)
[2023-11-23] MEDS: ATORVASTATIN 40 MG TAB PO SCH (09:24)
[2023-11-23] MEDS: FERROUS SULFATE 325 MG TAB PO SCH (09:24)
[2023-11-23] MEDS: buprenorphine HCL 8 MG SUBL PO SCH (09:25)
[2023-11-23] MEDS: PANTOprazole 40 MG TAB PO SCH (09:25)
[2023-11-23] MEDS: SPIRONOLACTONE 25 MG TAB PO SCH (09:25)
[2023-11-23] MEDS: TAMSULOSIN HCL 0.4 MG CAP PO SCH (09:25)
[2023-11-23] MEDS: DULoxetine HCL 60 MG CAP PO SCH (09:25)
[2023-11-23] MEDS: FOLIC ACID 1 MG TAB PO SCH (09:25)
[2023-11-23] MEDS: ASPIRIN 81 MG ECTAB PO SCH (09:45)
[2023-11-23] MEDS: INSULIN ASPART PER UNIT CHARGE SC SCH (10:06)
[2023-11-23] MEDS ORDERED: ALBUT/IPRATROP 3MG/0.5MG NEB 3 ML VIAL NEB PRN (11:38)
[2023-11-23 15:29] LABS: Appearance Urine Clear (Clear); Bacteria Urine Automated Negative (Negative); Bilirubin Urine Negative (Negative); Blood Urine 3+ (Negative); Color Urine Yellow; Epithelial Cell Urine Auto >30 /lpf (0-5); Glucose Urine UA Negative (Negative); Ketones Urine Negative (Negative); Leukocyte Esterase Urine 2+ (Negative); Nitrite Urine Negative (Negative); Protein Urine Trace (Negative); Urobilinogen Urine Negative (Negative); WBC Urine Automated >30 /hpf (0-5); pH Urine 6.5 (4.5-7.5)
--- NOTE | 2023-11-23 16:57 | Communication Note ---
Date of Service: November 23, 2023 53-year-old morbidly obese with significant past medical history of COPD, diabetes type 2 on insulin, chronic diastolic heart failure, hypertension, history of PE on Coumadin, medical noncompliance and other significant medical condition as mentioned in H&P was admitted with increasing shortness of breath for the last 2 to 3 days with wheezing and cough. Likely has acute exacerbation of COPD. Awaiting UA and urine culture following change of catheter. Clinically feeling better during my examination. A full progress note will be done tomorrow. DR Abdulaziz Vasquez
[2023-11-23] MEDS: WARFARIN SOD 2 MG TAB PO SCH (17:59)
[2023-11-23] MEDS: ACETAMINOPHEN 1,000 MG/100 ML VIAL IV STA (22:10)
[2023-11-23] MEDS: NICOTINE 21 MG/24 HR TDSY TD SCH (22:10)
[2023-11-23] MEDS: ONDANSETRON INJ 2 MG/ML 2 ML VIAL IV PRN (22:10)
[2023-11-23] MEDS: LANTUS PER UNIT CHARGE SC SCH (22:19)
[2023-11-23] MEDS: PIPER/TAZO 4.5g in D5W MINI-B 100 ML IV ONE (22:31)
[2023-11-24] MEDS: diphenhydrAMINE Capsule 25 MG CAP PO ONE (01:11)
[2023-11-24] MEDS: PIPERACILLIN/TAZOBACTAM 4.5 GM in DEXTROSE 5% MINI-B 100 ML IV SCH (05:07)
[2023-11-24 07:44] LABS: INR 1.6 (0.9-1.1); Prothrombin Time 16.6 Seconds (9.0-12.0)
[2023-11-24] MEDS: metOLazone 2.5 MG TABLET PO SCH (08:50)
[2023-11-24] MEDS: ACETAMINOPHEN 1,000 MG/100 ML VIAL IV STA (09:41)
[2023-11-24 09:59] LABS: BUN Creatinine Ratio 23.2 (10-20); Calcium 9.6 mg/dl (8.6-10.3); Creatinine Clr Calc Pharmacy 131.2 ml/min; Est GFR (African American) 86.5 ml/min; Est GFR (Non-African American) 74.6 ml/min
[2023-11-24] MEDS: POTASSIUM CHLORIDE CRTAB 20 MEQ TABCR PO STA (15:06)
[2023-11-24] MEDS: buprenorphine HCL 8 MG SUBL SL SCH ×2 (15:24→21:37)
[2023-11-24] MEDS: buprenorphine HCL 8 MG SUBL SL STA (15:40)
--- NOTE | 2023-11-24 16:01 | Electrocardiogram Report ---
Test Reason : Blood Pressure : / mmHG Vent. Rate : 075 BPM Atrial Rate : 075 BPM P-R Int : 156 ms QRS Dur : 108 ms QT Int : 386 ms P-R-T Axes : 027 032 061 degrees QTc Int : 431 ms Normal sinus rhythm Incomplete right bundle branch block Nonspecific T wave abnormality Anterior leads Abnormal ECG When compared with ECG of 22-NOV-2023 19:41, Nonspecific T wave abnormality now evident in Anterior leads Confirmed by Da Browning ([id number]) on 11/24/2023 4:01:42 PM Referred By: REFERRED SELF Confirmed By:Da Browning
[2023-11-24] MEDS ORDERED: PHARMACY GLYCEMIC MGMT CONSULT PRN (18:03)
--- NOTE | 2023-11-24 18:32 | Pharmacy Report ---
Pharmacy Glycemic Short Note 2 - Date of Service November 24, 2023 - Glycemic Short BSG Results (Last 24 hours): 11/23/23 11/24/23 11/24/23 21:12 06:40 09:01 Glucose 210 H POC Glucose 242 H 208 H 11/24/23 11/24/23 12:43 17:54 Glucose POC Glucose 296 H 215 H OUTPATIENT ANTIDIABETIC REGIMEN: * Lantus 50 units SQ HS * Novolog SQ TID meals * Glipizide 10mg PO BID ASSESSMENT: * 53-year-old morbidly obese with significant past medical history of COPD, diabetes type 2 on insulin, chronic diastolic heart failure, hypertension, history of PE on Coumadin, medical noncompliance, admitted with SOB/Cough, COPD exacerbation, UTI on IV Zosyn. * Hyperglycemic, patient also starting on PO prednisone this evening, pharmacy consulted, add NPH to cover steroid effects, continue basal, tighten CF/CR. PLAN FOR INPATIENT GLYCEMIC CONTROL: * Hold outpatient oral diabetes medications * Basal insulin * Lantus 50 units SQ HS * ADD: NPH 45 units SQ daily with PO Prednisone * Bolus insulin - tighten CF/CR * NovoLog per scale ACHS or Q6hrs while NPO * Goal Range: Low 110 mg/dL - High 140 mg/dL * Correction Factor: 10 mg/dL/unit * Nutritional / Prandial insulin per carb ratio of 1 unit per 3 grams CHO consumed
[2023-11-24] MEDS: WARFARIN SOD 2 MG TAB PO ONE (18:47)
[2023-11-24] MEDS: predniSONE 20 MG TAB PO SCH (18:47)
[2023-11-24] MEDS: NovoLIN-N (NPH) PER UNIT CHARGE SQ SCH (18:57)
[2023-11-24] MEDS: ACETAMINOPHEN 1,000 MG/100 ML VIAL IV PRN (21:41)
[2023-11-25] MEDS: INSULIN ASPART PER UNIT CHARGE SC SCH (02:18)
[2023-11-25 07:23] LABS: Basophils # (auto) 0.07 K/uL (0.00-0.20); Basophils % (auto) 0.4 %; Hematocrit (blood only) 42.8 % (42.0-52.0); Hemoglobin 13.8 g/dl (14.0-18.0); Immature Granulocytes # (auto) 0.15 K/uL (0.01-0.20); Immature Granulocytes % (auto) 0.9 %; Lymphocytes % (auto) 13.8 %; Mean Corpuscular Hemoglobin 25.3 pg (25.0-34.0); Mean Corpuscular Hgb Conc 32.2 g/dL (32.0-36.0); Mean Corpuscular Volume 78.5 fL (80.0-100.0); Mean Platelet Volume 9.8 fL (9.4-12.4); Monocytes # (auto) 0.69 K/uL (0.11-0.59); Neutrophils # (auto) 14.09 K/uL (1.40-6.50); Neutrophils % (auto) 80.9 %; Platelet Count 325 K/uL (130-400); RDW Coefficient of Variation 18.7 % (11.5-14.5); RDW Standard Deviation 51.2 fL (36.4-46.3); Red Blood Count 5.45 M/uL (4.70-6.10)
[2023-11-25 07:41] LABS: Potassium 3.9 mmol/L (3.5-5.1)
[2023-11-25 07:42] LABS: Calcium 9.9 mg/dl (8.6-10.3)
[2023-11-25] MEDS: ADVANCED PROBIOTIC 625 MG CAPSULE PO SCH (07:43)
[2023-11-25 07:50] LABS: BUN Creatinine Ratio 23.9 (10-20); Creatinine Clr Calc Pharmacy 157.1 ml/min; Est GFR (African American) 109.7 ml/min; Est GFR (Non-African American) 94.6 ml/min
[2023-11-25 07:55] LABS: INR 1.5 (0.9-1.1); Prothrombin Time 16.1 Seconds (9.0-12.0)
[2023-11-25] MEDS: buprenorphine HCL 8 MG SUBL SL SCH ×2 (07:59→14:00)
[2023-11-25] MEDS: CYCLOBENZAPRINE HCL 10 MG TAB PO PRN (07:59)
[2023-11-25] MEDS: INSULIN HUMAN NPH SC SCH (09:28)
[2023-11-25] MEDS: DAPTOmycin 500 MG in SYRINGE 0 ML IV SCH (11:46)
--- NOTE | 2023-11-25 12:23 | Pharmacy Report ---
Pharmacy Glycemic Short Note 2 - Date of Service November 25, 2023 - Glycemic Short BSG Results (Last 24 hours): 11/24/23 11/24/23 11/24/23 12:43 17:54 21:01 Glucose POC Glucose 296 H 215 H 136 H 11/25/23 11/25/23 11/25/23 02:15 07:10 07:53 Glucose 214 H POC Glucose 308 H* 186 H 11/25/23 12:10 Glucose POC Glucose 196 H OUTPATIENT ANTIDIABETIC REGIMEN: * Lantus 50 units SQ HS * Novolog SQ TID meals * Glipizide 10mg PO BID ASSESSMENT: 11/24 * Patient received total fo 144 units of insulin yesterday, of which 50 units were basal and 45 units NPH to cover PO prednisone * Fasting BSG 186 mg/dL - however patient did receive ~15 units correctional insulin overnight * Plan to increase basal this evening to 60 units daily (~20% incr) * Patient known to our service from other admissions, will provide tighter CR this AM based upon previous admissions * Continue same NPH daily to cover PO prednisone 11/23 * 53-year-old morbidly obese with significant past medical history of COPD, diabetes type 2 on insulin, chronic diastolic heart failure, hypertension, history of PE on Coumadin, medical noncompliance, admitted with SOB/Cough, COPD exacerbation, UTI on IV Zosyn. * Hyperglycemic, patient also starting on PO prednisone this evening, pharmacy consulted, add NPH to cover steroid effects, continue basal, tighten CF/CR. PLAN FOR INPATIENT GLYCEMIC CONTROL: * Hold outpatient oral diabetes medications * Basal insulin * Lantus 60 units SQ HS * ADD: NPH 45 units SQ daily with PO Prednisone * Bolus insulin - tighten CF/CR * NovoLog per scale ACHS or Q6hrs while NPO * Goal Range: Low 110 mg/dL - High 140 mg/dL * Correction Factor: 10 mg/dL/unit * Nutritional / Prandial insulin per carb ratio of 1 unit per 2 grams CHO consumed
--- NOTE | 2023-11-25 18:14 | Hospitalist Progress Note ---
Date of Service November 25, 2023 Assessment & Plan (1) Shortness of breath: Plan: per previous hospitalist notes with addendum: 53-year-old male with past medical significant for COPD, morbid obesity, type 2 diabetes, chronic diastolic heart failure, hypertension, hyperlipidemia, history of PE on Coumadin, mood disorder, medication noncompliance, current active smoker, chronic opioid abuse, chronic indwelling Lloyd catheter, history of subdural hematoma, history of subarachnoid hemorrhage, history of iron deficiency anemia, depression with anxiety, venous insufficiency, multiple recurrent admissions presents with shortness of breath and cough going on for last 3 days and also complains of nausea vomiting several episodes and diarrhea several episodes for last 3 days. Has headache. Has body aches. Has chest pain which he complains chronically. Has back pain. Appetite is down. Ambulates with a cane. Currently on 4 L oxygen which he is chronically on. Denies any fevers. Seems somewhat slow to answer. Was able to tell his name. Knows that he is in the hospital. Knows his date of but was not accurate with current year initially . Hemodynamically stable. Saturating okay on his 4 L oxygen. Patient recently admitted in September for sepsis, UTI and MAHAMED and metabolic encephalopathy. Shortness of breath Mostly mild COPD exacerbation Will do nebs in the clock and as needed Short course of steroids Continue home inhalers Respiratory bio fire negative, troponin negative 3/ improving on room air continue Prednisone daily continue Nebs Metabolic Encephalopathy Confusion possible MRSA UTI in the setting of Chronic Lloyd Catheter Seems mild confusion Somewhat slow to answer Could be from above Could be from pain meds ABG okay Has leukocytosis Will check for urinalysis as patient has recurrent UTI and may need antibiotics 3/ encephalopathy resolved Urine culture: MRSA Daptomycin IV Day 1 ID consulted Chronic urinary retention indwelling Lloyd catheter catheter On Flomax and Proscar Chest pain, resolved EKG and troponin negative Vitamin D deficiency On supplements History of recurrent PE On Coumadin INR therapeutic Follow PT/INR INR 1.5 additional coumadin 3mg today heparin SC TID until INR therapeutic Chronic diastolic CHF Continue home diuretics on torsemide and spironolactone and metolazone 3 times a week with potassium supplements Monitor for volume overload euvolemic Hypokalemia resolved Chronic pain syndrome On Suboxone GERD On Protonix Diabetes Hold glipizide Continue home Lantus Sliding scale Close monitor while on IV steroids Hypertension On Imdur, metoprolol succinate and diuretics Hyperlipidemia On statin Morbid obesity BMI 56 counselling DVT prophylaxis On Coumadin heparin SC TID until INR therapeutic Disposition anticipate d/c home when medically stable Admission and Anticipated Discharge Date Admission Date: November 23, 2023 Subjective ff up for COPD exacerbation, etc seen resting in bed, comfortable in good spirits states he feels improved compared to yesterday breathing is improving less cough no chest pain, dyspnea, palpitations, dizziness no abdominal pain ,nausea, fever/chills no other new symptoms Review of Systems Review of Systems: all noted and negative except for above Physical Exam Physical Exam: General- oriented x 3, not in distress, speaks in sentences with no effort or accessory muscle use Eyes- anicteric Neck- no JVD Lungs- clear breath sounds bilaterally, no rales/wheezes Heart- normal rate, regular rhythm; no murmurs Abdomen- normal bowel sounds, nondistended, soft, nontender Lloyd cath: draining clear yellow urine Extremities- no pretibial edema, no calf tenderness Neuro- alert, oriented x 3; no gross focal neurologic deficits Skin- warm & dry Results & Data Results & Data Vital Signs (Past 12 Hours) Vital Signs Temp Pulse Pulse Resp BP Pulse Ox O2 Del Method 11/25/23 16:08 36.8 C 75 20 126/67 92 Room Air 11/25/23 15:00 74 11/25/23 12:29 36.9 C 70 20 137/72 93 Room Air 11/25/23 07:48 36.5 C 66 19 138/73 94 Room Air 11/25/23 07:30 49 L 11/25/23 07:23 77 16 94 Nasal Cannula O2 Flow Rate 11/25/23 16:08 11/25/23 15:00 11/25/23 12:29 11/25/23 07:48 11/25/23 07:30 11/25/23 07:23 3 all noted and reviewed including below
[2023-11-25] MEDS: WARFARIN SOD 3 MG TAB PO ONE (22:08)
[2023-11-25] MEDS: HEPARIN SOD 5,000 UNIT/0.5 ML VIAL SQ SCH (22:12)
[2023-11-25] MEDS: LANTUS PER UNIT CHARGE SC SCH (22:19)
[2023-11-26 06:48] LABS: BUN Creatinine Ratio 24.7 (10-20); Est GFR (African American) 102.9 ml/min; Est GFR (Non-African American) 88.8 ml/min
[2023-11-26 06:54] LABS: INR 1.6 (0.9-1.1); Prothrombin Time 17.3 Seconds (9.0-12.0)
--- NOTE | 2023-11-26 14:01 | Pharmacy Report ---
Pharmacy Glycemic Short Note 2 - Date of Service November 26, 2023 - Glycemic Short BSG Results (Last 24 hours): 11/25/23 11/25/23 11/26/23 17:23 20:25 05:42 Glucose 133 H POC Glucose 86 74 11/26/23 11/26/23 08:02 12:09 Glucose POC Glucose 114 H 146 H OUTPATIENT ANTIDIABETIC REGIMEN: * Lantus 50 units SQ HS * Novolog SQ TID meals * Glipizide 10mg PO BID ASSESSMENT: 11/25 * Stanton received 197 units of insulin yesterday (105 were basal) * Fasting BSG this AM within goal range continue current basal regimen * BSGs trended down below goal range yesterday evening, loosen correction factor slightly 11/24 * Patient received total fo 144 units of insulin yesterday, of which 50 units were basal and 45 units NPH to cover PO prednisone * Fasting BSG 186 mg/dL - however patient did receive ~15 units correctional insulin overnight * Plan to increase basal this evening to 60 units daily (~20% incr) * Patient known to our service from other admissions, will provide tighter CR this AM based upon previous admissions * Continue same NPH daily to cover PO prednisone 11/23 * 53-year-old morbidly obese with significant past medical history of COPD, adan betes type 2 on insulin, chronic diastolic heart failure, hypertension, history of PE on Coumadin, medical noncompliance, admitted with SOB/Cough, COPD exacerbation, UTI on IV Zosyn. * Hyperglycemic, patient also starting on PO prednisone this evening, pharmacy consulted, add NPH to cover steroid effects, continue basal, tighten CF/CR. PLAN FOR INPATIENT GLYCEMIC CONTROL: * Hold outpatient oral diabetes medications * Basal insulin * Lantus 60 units SQ HS * insulin NPH 45 units SQ daily with PO Prednisone * Bolus insulin - loosen CF * NovoLog per scale ACHS or Q6hrs while NPO * Goal Range: Low 110 mg/dL - High 140 mg/dL * Correction Factor: 15 mg/dL/unit * Nutritional / Prandial insulin per carb ratio of 1 unit per 2 grams CHO consumed
[2023-11-26] MEDS: ACETAMINOPHEN 1,000 MG/100 ML VIAL IV STA (14:30)
[2023-11-26] MEDS ORDERED: Nursing to Pharmacy Communication SCH (14:30)
[2023-11-26] MEDS ORDERED: WARFARIN SOD 4 MG TAB PO SCH (16:00)
[2023-11-26] MEDS: WARFARIN SOD 4 MG TAB PO ONE (16:33)
[2023-11-26] MEDS: ACETAMINOPHEN 1,000 MG/100 ML VIAL IV ONE (16:34)
--- NOTE | 2023-11-26 19:45 | Discharge Summary ---
Discharge Summary Date of Service November 26, 2023 Notes For Next Care Provider Medication Changes From Visit Prednisone-oral steroid for COPD exacerbation Linezolid-antibiotic for UTI Admission HPI Per Admitting Provider 53-year-old male with past medical history significant for COPD, morbid obesity, type 2 diabetes, chronic diastolic heart failure, hypertension, hyperlipidemia, history of PE on Coumadin, mood disorder, medication noncompliance, current active smoker, chronic opioid abuse, chronic indwelling Lloyd catheter, history of subdural hematoma, history of subarachnoid hemorrhage, history of iron deficiency anemia, depression with anxiety, venous insufficiency, multiple recurrent admissions presents with shortness of breath and cough going on for last 3 days and also complains of nausea vomiting several episodes and diarrhea several episodes for last 3 days. Has headache. Has body aches. Has chest pain which he complains chronically. Has back pain. Appetite is down. Ambulates with a cane. Currently on 4 L oxygen which he is chronically on. Denies any fevers. Seems somewhat slow to answer. Was able to tell his name. Knows that he is in the hospital. Knows his date of but was not accurate with current year initially . Hemodynamically stable. Saturating okay on his 4 L oxygen. Patient recently admitted in September for sepsis, UTI and MAHAMED and metabolic encephalopathy. Past medical history. As mentioned above Past surgical history. Colonoscopy. EGD. EGD with endoscopic ultrasound. Foot surgery. Back surgery. Repair of left finger tendon. Repair of collateral ligament on left side. Simple repair of scalp neck. Social history. She smokes 1 pack a day currently for many years. No alcohol current. Currently on buprenorphine Family history. Sister had breast cancer. Father had aneurysm. Maternal grandfather KS in 50s. Maternal grandmother had KS in 80s. Paternal grandfather had COPD. Mother had musculoskeletal disorder. Principal Dx & Hospital Course #1 = Principal Diagnosis (1) Shortness of breath: per previous hospitalist notes with addendum: 53-year-old male with past medical significant for COPD, morbid obesity, type 2 diabetes, chronic diastolic heart failure, hypertension, hyperlipidemia, history of PE on Coumadin, mood disorder, medication noncompliance, current active smoker, chronic opioid abuse, chronic indwelling Lloyd catheter, history of subdural hematoma, history of subarachnoid hemorrhage, history of iron deficiency anemia, depression with anxiety, venous insufficiency, multiple recurrent admissions presents with shortness of breath and cough going on for last 3 days and also complains of nausea vomiting several episodes and diarrhea several episodes for last 3 days. Has headache. Has body aches. Has chest pain which he complains chronically. Has back pain. Appetite is down. Ambulates with a cane. Currently on 4 L oxygen which he is chronically on. Denies any fevers. Seems somewhat slow to answer. Was able to tell his name. Knows that he is in the hospital. Knows his date of but was not accurate with current year initially . Hemodynamically stable. Saturating okay on his 4 L oxygen. Patient recently admitted in September for sepsis, UTI and MAHAMED and metabolic encephalopathy. Shortness of breath Mostly mild COPD exacerbation Will do nebs in the clock and as needed Short course of steroids Continue home inhalers Respiratory bio fire negative, troponin negative 11/25 clinically improved on room air continue Prednisone taper continue Nebs PCP ff up in 1 week Metabolic Encephalopathy Confusion possible MRSA UTI in the setting of Chronic Lloyd Catheter Seems mild confusion Somewhat slow to answer Could be from above Could be from pain meds ABG barbara Has leukocytosis Will check for urinalysis as patient has recurrent UTI and may need antibiotics 11/25 encephalopathy resolved Urine culture: MRSA Daptomycin IV --> Linezolid PO Lloyd Catheter Changed Chronic urinary retention indwelling Lloyd catheter catheter On Flomax and Proscar Chest pain, resolved EKG and troponin negative Vitamin D deficiency On supplements History of recurrent PE On Coumadin INR therapeutic Follow PT/INR INR 1.6 additional coumadin given- 8mg ff up with [facility] Wednesday- they were notified Chronic diastolic CHF Continue home diuretics on torsemide and spironolactone and metolazone 3 times a week with potassium supplements Monitor for volume overload euvolemic Hypokalemia resolved Chronic pain syndrome On Suboxone GERD On Protonix Diabetes Hold glipizide Continue home Lantus Sliding scale Close monitor while on IV steroids Hypertension On Imdur, metoprolol succinate and diuretics Hyperlipidemia On statin Morbid obesity BMI 56 counselling DVT prophylaxis On Coumadin Disposition d/c home PCP ff up in 1 week Discharge Exam General- oriented x 3, not in distress, speaks in sentences with no effort or accessory muscle use Eyes- anicteric Neck- no JVD Lungs- clear breath sounds bilaterally, no rales/wheezes Heart- normal rate, regular rhythm; no murmurs Abdomen- normal bowel sounds, nondistended, soft, nontender Extremities- no pretibial edema, no calf tenderness Neuro- alert, oriented x 3; no gross focal neurologic deficits Skin- warm & dry Updated Medication List Medication Instructions Recorded Confirmed Type aspirin 81 mg tablet,delayed 81 mg PO QAM 11/17/18 11/22/23 History release (Ecotrin Low Strength) nitroglycerin 0.4 mg sublingual 0.4 mg sublingual DIRECTED PRN 12/09/18 11/22/23 History tablet (Nitrostat) CHEST PAIN nystatin 100,000 unit/gram topical 1 applic topical TID PRN Skin 12/09/18 11/22/23 History powder Irritation polyethylene glycol 3350 17 gram 17 g PO QAM PRN Constipation 12/09/18 11/22/23 History oral powder packet (Miralax) finasteride 5 mg tablet 5 mg PO QAM 03/03/19 11/22/23 History docusate sodium 100 mg capsule 100 mg PO BID PRN Constipation 08/11/19 11/22/23 History folic acid 1 mg tablet 1 mg PO QAM 12/07/19 11/22/23 History sennosides 8.6 mg tablet (senna) 8.6 mg PO DAILY PRN Constipation 12/07/19 11/22/23 History duloxetine 60 mg capsule,delayed 60 mg PO DAILY 07/05/20 11/22/23 History release famotidine 20 mg tablet 20 mg PO DAILY 07/05/20 11/22/23 History glipizide 10 mg tablet 10 mg PO BID 01/12/21 11/22/23 History Lactobacillus acidoph-L.bulgaricus 1 tab PO TID #30 tabs 05/09/21 11/22/23 Rx 1 million cell chewable tablet (Lactinex) ferrous sulfate 325 mg (65 mg 325 mg PO QAM 10/24/21 11/22/23 History iron) tablet hydroxyzine HCl 25 mg tablet 25 mg PO QID PRN Anxiety 10/24/21 11/22/23 History urea 20 % topical cream 1 applic topical BID Dry Areas on 10/24/21 11/22/23 History (Ureacin-20) Soles and Legs insulin aspart U-100 100 unit/mL 0 sliding scale dose subcut TIDM 04/07/23 11/22/23 History (3 mL) subcutaneous pen (Novolog FlexPen U-100 Insulin aspart) buprenorphine HCl 8 mg sublingual See Rx Instructions .Route .COMPLEX 05/04/23 11/22/23 History tablet fluticasone propionate 93 2 spray intranasal DAILY 08/22/23 11/22/23 History mcg/actuation breath activated aerosol ipratropium 0.5 mg-albuterol 3 mg 3 ml inhalation TID 08/22/23 11/22/23 History (2.5 mg base)/3 mL nebulization soln atorvastatin 80 mg tablet 80 mg PO QAM #30 tabs 09/26/23 11/22/23 Rx ergocalciferol (vitamin D2) 1,250 50,000 unit PO Q7D #10 caps 09/26/23 11/22/23 Rx mcg (50,000 unit) capsule magnesium oxide 400 mg (241.3 mg 400 mg PO BID #60 tabs 09/26/23 11/22/23 Rx magnesium) tablet metolazone 2.5 mg tablet 2.5 mg PO 3XWK #30 tabs 09/26/23 11/22/23 Rx metoprolol succinate 50 mg 75 mg (1.5 x 50 mg) PO BID 30 days 09/26/23 11/22/23 Rx tablet,extended release 24 hr #180 tabs potassium chloride 20 mEq 20 meq PO TID #90 tabs 09/26/23 11/22/23 Rx tablet,extended release spironolactone 25 mg tablet 25 mg PO QAM #30 tabs 09/26/23 11/22/23 Rx tamsulosin 0.4 mg capsule (Flomax) 0.8 mg (2 x 0.4 mg) PO QAM #180 09/26/23 11/22/23 Rx caps torsemide 100 mg tablet 50 mg (1/2 x 100 mg) PO DAILY #30 09/26/23 11/22/23 Rx tabs isosorbide dinitrate 30 mg tablet 30 mg PO DAILY #30 tabs 10/11/23 11/22/23 Rx warfarin 2 mg tablet See Rx Instructions .Route .COMPLEX 11/22/23 11/22/23 History albuterol sulfate 90 mcg/actuation 2 puff inhalation Q4 PRN Dyspnea 11/26/23 Rx aerosol inhaler 30 days #1 inh budesonide 0.5 mg/2 mL suspension 0.5 mg (2 mL) inhalation Q12H 30 11/26/23 Rx for nebulization days #60 mL cyclobenzaprine 10 mg tablet 10 mg PO BID PRN Muscle Spasm #15 11/26/23 Rx tabs fluticasone 250 mcg-salmeterol 50 1 inh inhalation BID 30 days #1 ea 11/26/23 Rx mcg/dose blistr powdr for inhalation (Advair Diskus) gabapentin 800 mg tablet 800 mg PO TID #42 tabs 11/26/23 Rx insulin glargine 100 unit/mL 50 unit (0.5 mL) SC HS 30 days #15 11/26/23 Rx subcutaneous solution (Lantus mL U-100 Insulin) linezolid 600 mg tablet 600 mg PO BID 7 days #14 tabs 11/26/23 Rx omeprazole 20 mg capsule,delayed 20 mg PO DAILYBB 30 days #30 caps 11/26/23 Rx release ondansetron HCl 4 mg tablet 4 mg PO Q8H PRN NAUSEA/VOMITING 11/26/23 Rx #12 tabs Hospital Stay Data Consultations 11/22/23 22:29 ED Decision to Admit Stat Pending Results Patient Have Any Pending Studies at Discharge: No Discharge Instructions Given to Patient (Per Discharging Provider) PLEASE REFER TO YOUR NEW MEDICATION LIST AND FOLLOW INSTRUCTIONS CAREFULLY. YOUR NEW MEDICATIONS INCLUDE: Prednisone-oral steroid for COPD exacerbation Linezolid-antibiotic for UTI PLEASE CALL YOUR PRIMARY CARE PHYSICIAN OR RETURN TO THE ER IF WITH WORSENING OF SYMPTOMS, INCLUDING Confusion, fevers or chills, abdominal pain, nausea or vomiting, Shortness of breath, cough, etc. FOLLOW UP WITH PRIMARY CARE PHYSICIAN OUTLINED ABOVE. THE COUMADIN CLINIC WILL BE CALLING YOU SOON FOR ADVICE REGARDING NEXT BLOOD WORK AND COUMADIN DOSING. Total Time Total Time Spent Total Time Spent (In Minutes): >30 minutes
[2023-11-28] MEDS ORDERED: ERGOCALCIFEROL 1250 MCG (50,000 UNITS) CAP PO SCH (09:00)
--- NOTE | 2023-12-01 12:49 | Coding Query ---
CODING QUERY To promote full compliance with coding requirements relating to patient care, provider participation is requested in all cases of sample paster uncertainty. Please assist us with the question(s) below: Coding Question(s): "In the setting of" indicates that the two conditions exist together, it does not indicate a [id number] relationship. Could you please clarify the meaning of the following documentation: Possible MRSA UTI in the setting of chronic fontaine catheter Physician's Response(s): ( ) UTI and chronic fontaine catheter coexist (without [id number] relationship) ( x ) UTI due to chronic fontaine catheter (with [id number] relationship) ( ) Other, please specify Thank you Gina Mauricio Principal Diagnosis: "that condition established after study, to be chiefly responsible for occasioning the admission of the patient to the hospital for care." Co-Existing Principal Diagnosis: "when two or more diagnoses equally meet the criteria for principal diagnosis as determined by the circumstances of admission, diagnostic work up, and/or therapy provided, and the Alphabetic Index, Tabular List, or another coding guideline does not provide sequencing direction, any one of the diagnoses may be sequenced first." "When the physician has documented what appears to be a current diagnosis in the body of the record, but has not included the diagnosis in the final diagnostic statement, the physician should be asked whether the diagnosis should be added." (Source [facility]oding [facility] 2 QTR90. p3-4) [place]
== END 2023-11-26 18:22 | disposition home or self-care (01) ==
LOC: ED 19:29 → SUATTDRO 11-23 02:24 → EDINP 11-23 02:24 → INTOOBSV 11-23 02:24 → 2W 11-24 04:07
DX: T83.518A Infection and inflammatory reaction due to other urinary catheter, initial encounter; R33.9 Retention of urine, unspecified; E66.01 Morbid (severe) obesity due to excess calories; Z82.5 Family history of asthma and other chronic lower respiratory diseases; Z88.1 Allergy status to other antibiotic agents; Z79.4 Long term (current) use of insulin; R07.9 Chest pain, unspecified; I11.0 Hypertensive heart disease with heart failure; R11.2 Nausea with vomiting, unspecified; B95.62 Methicillin resistant Staphylococcus aureus infection as the cause of diseases classified elsewhere; E55.9 Vitamin D deficiency, unspecified; F17.210 Nicotine dependence, cigarettes, uncomplicated; N39.0 Urinary tract infection, site not specified; Z79.01 Long term (current) use of anticoagulants; I50.32 Chronic diastolic (congestive) heart failure; Z99.81 Dependence on supplemental oxygen; G89.4 Chronic pain syndrome; Z87.440 Personal history of urinary (tract) infections; K21.9 Gastro-esophageal reflux disease without esophagitis; F41.8 Other specified anxiety disorders; Z88.5 Allergy status to narcotic agent; Y84.6 Urinary catheterization as the cause of abnormal reaction of the patient, or of later complication, without mention of misadventure at the time of the procedure; Z88.6 Allergy status to analgesic agent; Z79.84 Long term (current) use of oral hypoglycemic drugs; Z86.711 Personal history of pulmonary embolism; Z96.0 Presence of urogenital implants; Z68.43 Body mass index [BMI] 50.0-59.9, adult; J44.1 Chronic obstructive pulmonary disease with (acute) exacerbation; R19.7 Diarrhea, unspecified; Z79.51 Long term (current) use of inhaled steroids; Z79.82 Long term (current) use of aspirin; E78.5 Hyperlipidemia, unspecified; Z79.899 Other long term (current) drug therapy; E11.9 Type 2 diabetes mellitus without complications; G93.41 Metabolic encephalopathy; E87.6 Hypokalemia

== ENCOUNTER 2023-12-06 10:28 | Inpatient (IN) ==
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
[2023-12-06 11:22] LABS: Basophils # (auto) 0.08 K/uL (0.00-0.20); Basophils % (auto) 0.6 %; Eosinophils % (auto) 4.9 %; Hematocrit (blood only) 40.8 % (42.0-52.0); Hemoglobin 13.7 g/dl (14.0-18.0); Immature Granulocytes # (auto) 0.07 K/uL (0.01-0.20); Immature Granulocytes % (auto) 0.5 %; Lymphocytes # (auto) 3.99 K/uL (1.20-3.40); Lymphocytes % (auto) 27.9 %; Mean Corpuscular Hemoglobin 26.2 pg (25.0-34.0); Mean Corpuscular Hgb Conc 33.6 g/dL (32.0-36.0); Mean Platelet Volume 10.4 fL (9.4-12.4); Monocytes % (auto) 10.5 %; Neutrophils # (auto) 7.98 K/uL (1.40-6.50); Neutrophils % (auto) 55.6 %; Nucleated RBC # (auto) 0.04 K/uL (0.00-0.12); Nucleated RBC % (auto) 0.3 %; Platelet Count 260 K/uL (130-400); RDW Coefficient of Variation 18.9 % (11.5-14.5); RDW Standard Deviation 51.6 fL (36.4-46.3); Red Blood Count 5.23 M/uL (4.70-6.10); White Blood Count 14.32 K/ul (4.8-10.8)
[2023-12-06] MEDS: ONDANSETRON INJ 2 MG/ML 2 ML VIAL IV STA (11:35)
[2023-12-06] MEDS: ACETAMINOPHEN 1,000 MG/100 ML VIAL IV STA ×2 (11:35→23:22)
[2023-12-06 11:37] LABS: Albumin Globulin Ratio 1.1 (0.9-2); BUN Creatinine Ratio 24.8 (10-20); Bilirubin,Total 0.8 mg/dl (0.2-1.0); Calcium 10.6 mg/dl (8.6-10.3); Creatinine Clr Calc Pharmacy 124.5 ml/min; Est GFR (Non-African American) 70.8 ml/min; Globulin 3.6 gm/dl (2.5-4.0); Potassium 2.6 mmol/L (3.5-5.1); Total Protein 7.6 gm/dl (6.0-8.3)
[2023-12-06 11:41] LABS: Troponin I High Sensitivity 7.1 pg/ml (0-20)
[2023-12-06 12:23] LABS: INR 2.5 (0.9-1.1); Prothrombin Time 25.5 Seconds (9.0-12.0)
--- NOTE | 2023-12-06 12:36 | Electrocardiogram Report ---
Test Reason : Blood Pressure : / mmHG Vent. Rate : 082 BPM Atrial Rate : 082 BPM P-R Int : 164 ms QRS Dur : 124 ms QT Int : 362 ms P-R-T Axes : -09 020 091 degrees QTc Int : 422 ms Normal sinus rhythm Right bundle branch block Abnormal ECG When compared with ECG of 24-NOV-2023 14:29, No significant change was found Confirmed by Luan Escalante ([id number]) on 12/06/2023 12:36:24 PM Referred By: Confirmed By:Mark Escalante
[2023-12-06 13:28] LABS: Appearance Urine Clear (Clear); Bacteria Urine Automated 2+ (Negative); Bilirubin Urine Negative (Negative); Blood Urine 3+ (Negative); Color Urine Yellow; Epithelial Cell Urine Auto 0-5 /lpf (0-5); Glucose Urine UA Negative (Negative); Ketones Urine Negative (Negative); Leukocyte Esterase Urine 2+ (Negative); Nitrite Urine Positive (Negative); Protein Urine Negative (Negative); Urobilinogen Urine Negative (Negative); WBC Urine Automated >30 /hpf (0-5)
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
[2023-12-06] MEDS: POTASSIUM CHLORIDE CRTAB 20 MEQ TABCR PO STA (13:44)
[2023-12-06] MEDS: valACYclovir HCL 500 MG TABLET PO ONE (13:44)
--- OUTSIDE RECORDS SUMMARY | 2023-12-06 14:46 | External Medical Summary | Summary of Care ---
Author Name Unknown Organization [facility] Address [address] [place] [address] Phone [phone] Care Team Providers Care Hospital Coordinator Name Role Phone Roberto Askew MD Primary Care Provider + Reason for Visit * Reason Comments Dosage Adjustment Via Phone (anticoag Cl inic) Encounter Details Date Type Department Care Team (Latest Contact Info) Description 11/29/2023 6:45 AM EDT Anticoagulation Pharmacy Call Center [phone] [place] [address] [facility] [phone] [place] [address] History of pulmonary embolism* Allergies Active Allergy [...] as of this encounter (statuses as of 11/29/2023) Medications Medication Sig Dispensed Refills Start Date [...] day as needed. 0 Active nystatin (NYSTOP) 496582 UNIT/GM powderIndications:Cu taneous candidiasis Apply topically to [...] MG Oral TabletIndications:Co ronary artery disease involving cabazon coronary artery of cabazon heart without angina pectoris Take by mouth [...] MG Oral TabletIndications:Co ronary artery disease involving cabazon coronary artery of cabazon heart without angina pectoris Take 1 Tablet by mouth in the morning. In the morning.. 90 Tablet 1 04/05/2023 Active Metoprolol Succinate ER 50 MG Oral Tablet Extended Release 24 Hour (toPROL XL)Indications:Coron uziel artery disease involving cabazon coronary artery of cabazon heart without angina pectoris TAKE 1 & [...] less than 8.0% ([facility]) Use 3 times daily as directed 300 Strip 3 08/31/2023 Active TRUEplus Lancets 33GIndications:Type 2 diabetes mellitus with hemoglobin A1c goal of less than 8.0% ([facility]) Use 3 times daily as directed [...] as of this encounter (statuses as of 11/29/2023) Active Problems Problem Noted Date Diagnosed Date [...] hemorrhage 10/04/2020 Coronary artery disease invo lving cabazon heart without angina pectoris 10/04/2020 COPD, group [...] as of this encounter (statuses as of 11/29/2023) Resolved Problems Problem Noted Date Diagnosed Date [...] Calculus of kidney 08/20/2015 8 Overview: right, [place] CT Vitamin D deficiency 01/31/2015 018 Body [...] as of this encounter (statuses as of 11/29/2023) Immunizations Name Administration Dates Next Due COVID-19 mRNA, LNP-s, No Pre serve, 2-Dose Series ([place] [employer]) 01/02/2021,12/05/2020 DTP Vaccine 07/19/2017,04/03/2014 Hepatitis B, 20+ [...] this encounter Progress Notes * Keren Sanchez, [facility] - 11/29/2023 12:32 PM EDT Medication Therapy Disease Management - Anticoagulation Patient: Stanton A Alf | : 1970 Subjective Contacts Type Contact Phone/Fax 11/29/2023 12:52 PM EDT Phone (Outgoing) Alf Stanton Vesna (Self) [phone] (H) Spoke to Patient Patient-Reported Symptoms: Patient Findings Positives: Hospital admission Negatives: Signs/symptoms of thrombosis, Signs/symptoms of bleeding, Change in health, Change in alcohol use, Change in activity, Upcoming invasive procedure, Missed doses, Extra doses, Change in medications, Change in diet/appetite, Bruising Comments: Pt was discharged from [facility] to home. Pt was admitted for COPD . Pertinent medications changes Zyvox. Pt aware to call with NVD >24 hours. INR at discharge was 1.5. Pt was provided the following directions at discharge: additional 3mg dayof discharge then resume regular dosing. Objective Current Warfarin Dose As of 11/29/2023 Warfarin maintenance plan: 2 mg (4 mg x 0.5) every Sat; 4 mg (4 mg x 1) all other days INR Result As of 11/29/2023 INR goal: 2.0-3.0 INR used for dosing: No new INR was available at the time of this encounter. Assessment & Plan Warfarin Plan As of 11/29/2023 Full warfarin instructions: 2 mg every Sat; 4 mg all other days Next INR check: 12/02/2023 Repeat PT/INR in 3 day(s) Weekly dose: not changed Additional Dosing Information: Description [facility]) - pt prefers [facility] at this time Keren Sanchez [facility] Clinical Pharmacist 11/29/2023, 12:52 PM documented in this encounter Plan of Treatment Upcoming Encounters Date Type Department Care Team (Late st Contact Info) Description 12/02/2023 9:10 AM EDT Laboratory Lab Mobile Phlebotomy [facility] [address] [place] [address] [facility] Mobile Home Draw [address] [place] [address] 12/02/2023 6:00 PM EDT Anticoagulation Pharmacy Call Center [phone] [place] [address] [facility] [phone] [facility] [place] [address] Health Maintenance Due Date Last Done Comments DISCUSS TOBACCO CESSATION (REFER TO SMARTSET #7961) 1970 HIV Screening 1985 O2 ASSESSMENT COMPLETED IN PAST YEAR FOR COPD 1988 Pneumococcal Vaccine: Pediatrics (0 to 5 Years) and At-Risk Patients (6 to 64 Years) (2 of 2 - PCV) 05/22/2010 05/22/2009 Cologuard 2015 Fecal Occult Blood Test 2015 Sigmoidoscopy 2015 *ADVANCE DIRECTIVE NOT ON FILE 02/03/2020 LUNG CANCER SCREENING - USE SMARTSET [id number] 2020 02/10/2019, 07/19/2017, 05/09/2017, Additional history exists [...] this encounter Medical Devices Implanted Type Area Tax Agent Device Identifier Shelf Expiration Date Model / Serial / Lot Tube Flex 3.0x2.5 [id number] - [id number] Implanted:Qty: 1 on 12/07/2014 by Juancarlos Trinidad MD at [facility] Left: Finger [place]ON : ORTHOPAEDICS 11/18/2015 [id number] / / [id number] documented as of this encounter Visit Diagnoses [...] the patient have Health Care Power of Coil Finisher? No Healthcare Agents on File Name Relationship Healthcare Agent Relationship Communication Estrella Seth Other - (no specific identity) Health Care Power of Coil Finisher Care Teams Hospital Coordinator Relationship Specialty Start Date End Date Roberto Askew MD [address] [place] [address], [place] [address] PCP - General Internal Medicine 04/10/20 documented as of this encounter
--- OUTSIDE RECORDS SUMMARY | 2023-12-06 14:46 | External Medical Summary | Summary of Care ---
Author Name Unknown Organization [facility] Address [address] [place] [address] Phone [phone] Care Team Providers Care Returns Clerk Name Role Phone Roberto Askew MD Primary Care Provider + Reason for Visit * Reason Onset Date Comments Hospital Follow-Up 11/26/2023 Encounter Details Date Type Department Care Team ([facility] st Contact Info) Description 11/26/2023 Telephone General Internal Medicine [facility] [address] [place] [address] Roberto Askew MD [address] [place] [address] Hospital Follow-Up Allergies Active Allergy Reactions Criticality [...] as of this encounter (statuses as of 11/28/2023) Medications Medication Sig Dispensed Refills Start Date [...] day as needed. 0 Active nystatin (NYSTOP) 699792 UNIT/GM powderIndications:Cu taneous candidiasis Apply topically to [...] COPD, group C, by GOLD 2017 classification ([facility]),COPD, group D, by GOLD 2017 classification ([facility]) USE 2 PUFFS BY MOUTH EVERY 4 HOURS NEEDED SHORT OF BREATH 6.7 g 5 11/24/2021 Active Magnesium Oxide 400 (241.3 Mg) MG Oral TabletIndications:Co ronary artery disease involving [place] coronary artery [...] MG Oral TabletIndications:Co ronary artery disease involving [place] coronary artery of [place] heart without angina pectoris Take 1 Tablet by mouth in the morning. In the morning.. 90 Tablet 1 04/05/2023 Active Metoprolol Succinate ER 50 MG Oral Tablet Extended Release 24 Hour (toPROL XL)Indications:Coron uziel artery disease involving [place] coronary artery [...] hemoglobin A1c goal of less than 8.0% ([facility]) Use 3 times daily as directed 300 Strip 3 08/31/2023 Active TRUEplus Lancets 33GIndications:Type 2 diabetes mellitus with hemoglobin A1c goal of less than 8.0% ([facility]) Use 3 times daily as [...] as of this encounter (statuses as of 11/28/2023) Active Problems Problem Noted Date Diagnosed Date [...] 01/24/2021 Opioid dependence, uncomplicated 01/22/2021 History of MO (myocardial infarction) 01/22/2021 Morbid obesity with BMI of 50.0-59.9, adult 09/20 History of subdural hematoma 10/04/2020 Gastroesophageal reflux disease without esophagi tis 10/04/2020 History of subarachnoid hemorrhage 10/04/2020 Coronary artery disease invo lving [place] heart without angina pectoris 10/04/2020 [...] as of this encounter (statuses as of 11/28/2023) Resolved Problems Problem Noted Date Diagnosed Date [...] Calculus of kidney 08/20/2015 8 Overview: right, [place] CT Vitamin D deficiency 01/31/2015 018 Body [...] as of this encounter (statuses as of 11/28/2023) Immunizations Name Administration Dates Next Due COVID-19 mRNA, LNP-s, No Pre serve, 2-Dose Series ([employer] [facility]) 01/02/2021,12/05/2020 DTP Vaccine 07/19/2017,04/03/2014 Hepatitis B, 20+ [...] Telephone Encounter - Roberto Askew MD - 11/28/2023 1:00 PM EDT He needs to be seen in person, I can't treat him if he doesn't come in or schedule. His last in person ov with me was 06/20/21 and televideo was 12/10/21 almost 2 years ago. I would suggest, given he lives in [place], and we have a clinic in [place], he transition to care there given closer to home, may ease transportation issues/cost. * Telephone Encounter - Alexandra Carrillo RPh - 11/26/2023 4:12 PM EST Noted - thank you; pt is on [facility] schedule for follow-up regarding hospital discharge. Thanks, Alexandra Carrillo, PharmD Clinical Pharmacist [facility] Services ([facility]PS) (Formerly Telepharmacy) [phone] 11/26/2023 4:12 PM * Telephone Encounter - Drake Hanson RN - 11/26/2023 2:11 PM EST Patient to be discharged at 6PM today from [facility]. INR 1.6 today, coumadin 8mg given today, then resume prior to admission dosing. Please follow up with the patient for possible INR check on 11/29/23. Thank you Dr Askew--Patient continues with limited transportation issues, now depends on his working daughter's schedule. Patient instructed to schedule an appointment with PCP. documented in this encounter Plan of Treatment Upcoming Encounters Date Type Department Care Team (Late st Contact Info) Description 11/29/2023 6:45 AM EDT Anticoagulation Pharmacy Call Center [address] [facility] [place] [address] [facility] [address] [facility] [place] [address] Health Maintenance Due Date Last Done Comments DISCUSS TOBACCO CESSATION (REFER TO SMARTSET #0774) 1970 HIV Screening 1985 O2 ASSESSMENT COMPLETED IN PAST YEAR FOR COPD 1988 Pneumococcal Vaccine: Pediatrics (0 to 5 Years) and At-Risk Patients (6 to 64 Years) (2 of 2 - PCV) 05/22/2010 05/22/2009 Cologuard 2015 Fecal Occult Blood Test 2015 Sigmoidoscopy 2015 *ADVANCE DIRECTIVE NOT ON FILE 02/03/2020 LUNG CANCER SCREENING - USE SMARTSET [id number] 2020 02/10/2019, 07/19/2017, 05/09/2017, Additional history exists [...] this encounter Medical Devices Implanted Type Area Psychology Instructor Device Identifier Shelf Expiration Date Model / Serial / Lot Tube Flex 3.0x2.5 [id number] - [id number] Implanted:Qty: 1 on 12/07/2014 by Juancarlos Trinidad MD at [facility] Left: Finger [employer] : ORTHOPAEDICS 11/18/2015 [id number] / / [id number] documented as of this encounter Advance Directives [...] the patient have Health Care Power of Enrobing Machine Feeder? No Healthcare Agents on File Name Relationship Healthcare Agent Relationship Communication Estrella Seth Other - (no specific identity) Health Care Power of Enrobing Machine Feeder Care Teams Returns Clerk Relationship Specialty Start Date End Date Roberto Askew MD [address] [place] [address] PCP - General Internal Medicine 04/10/20 documented as of this encounter
--- OUTSIDE RECORDS SUMMARY | 2023-12-06 14:46 | External Medical Summary | Summary of Care ---
Author Name Unknown Organization [facility] Address [address] [place] [address] Phone [phone] Care Team Providers Care Tape Weaver Name Role Phone Roberto Askew MD Primary Care Provider + Reason for Visit * Reason Comments Dosage Adjustment Via Phone (anticoag Cl inic) Encounter Details Date Type Department Care Team (Latest Contact Info) Description 11/26/2023 6:00 AM RUST Anticoagulation Pharmacy Call Center [phone] [facility] [place] [address] [facility] [address] [place] [address] Anticoagulation management encounter*; History of pulmonary embolism Allergies Active Allergy Reactions Criticality Noted Date [...] as of this encounter (statuses as of 11/26/2023) Medications Medication Sig Dispensed Refills Start Date [...] day as needed. 0 Active nystatin (NYSTOP) 343930 UNIT/GM powderIndications:Cu taneous candidiasis Apply topically to [...] MG Oral TabletIndications:Co ronary artery disease involving [place] coronary artery of [place] heart without angina pectoris Take by mouth [...] MG Oral TabletIndications:Co ronary artery disease involving [place] coronary artery of [place] heart without angina pectoris Take 1 Tablet by mouth in the morning. In the morning.. 90 Tablet 1 04/05/2023 Active Metoprolol Succinate ER 50 MG Oral Tablet Extended Release 24 Hour (toPROL XL)Indications:Coron uziel artery disease involving [place] coronary artery of [place] heart without angina pectoris TAKE 1 & [...] [facility]) Use 3 times daily as directed 300 Strip 3 08/31/2023 Active TRUEplus Lancets 33GIndications:Type 2 diabetes mellitus with hemoglobin A1c goal of less than 8.0% ([facility]) Use 3 times daily as directed 300 [...] as of this encounter (statuses as of 11/26/2023) Active Problems Problem Noted Date Diagnosed Date [...] hemorrhage 10/04/2020 Coronary artery disease invo lving [place] heart without angina pectoris 10/04/2020 COPD, group [...] as of this encounter (statuses as of 11/26/2023) Resolved Problems Problem Noted Date Diagnosed Date [...] as of this encounter (statuses as of 11/26/2023) Immunizations Name Administration Dates Next Due COVID-19 mRNA, LNP-s, No Pre serve, 2-Dose Series ([facility]) 01/02/2021,12/05/2020 DTP Vaccine 07/19/2017,04/03/2014 Hepatitis B, 20+ [...] Progress Notes * Alexandra Carrillo RPh - 11/26/2023 9:12 AM EST Patient has been admitted to [facility] since 11/23/23 for concerns of SOB, cough, and NVD. Symptoms noted to be secondary to COPD exacerbation and metabolic encephalopathy. No current plans for discharge noted. ACC tracker updated with warfarin dosing up until today. [facility] to continue follow-up efforts for discharge. Alexandra Springer PharmD Clinical Pharmacist Centralized Clinical Pharmacy Services ([facility]PS) (Formerly Telepharmacy) [phone] 11/26/2023 9:21 AM * Delilah Boland clinical informatics educator - 11/26/2023 7:04 AM EST Patient's GML appointment yesterday canceled by them with a note stating patient is admitted to [facility]. Please advise. Thank you, Delilah Boland Wire Repairer [facility] ([facility]) 11/26/2023,7:04 AM documented in this encounter Plan of Treatment Upcoming Encounters Date Type Department Care Team (Late st Contact Info) Description 11/29/2023 6:45 AM EDT Anticoagulation Pharmacy Call Center [phone] [place] [address] Ccp, [facility] [address] [facility] [place] [address] Health Maintenance Due Date Last Done Comments [...] 02/03/2020 LUNG CANCER SCREENING - USE SMARTSET [id number] 2020 02/10/2019, 07/19/2017, 05/09/2017, Additional history exists [...] encounter Medical Devices Implanted Type Area Senior Graduate Advisor Device Identifier Shelf Expiration Date Model / Serial / Lot Tube Flex 3.0x2.5 [id number] - [id number] Implanted:Qty: 1 on 12/07/2014 by Juancarlos Trinidad MD at [facility] Left: Finger [employer] : ORTHOPAEDICS 11/18/2015 [id number] / / [id number] documented as of this encounter Procedures Procedure Name Priority Date/Time Associated Diagnosis Comments OUTSIDE LAB-PT/INR Routine 11/26/2023 OUTSIDE LAB-PT/INR Routine 11/25/2023 OUTSIDE LAB-PT/INR Routine 11/24/2023 OUTSIDE LAB-PT/INR Routine 11/23/2023 OUTSIDE LAB-PT/INR Routine 11/22/2023 documented in this encounter Results * OUTSIDE LAB-PT/INR (11/26/2023) Pathologist [facility] INR-OUTSIDE LAB 1.6 11/26/2023 History Per Patient LABORATORY * OUTSIDE LAB-PT/INR (11/25/2023) [facility] INR-OUTSIDE LAB 1.5 11/25/2023 History Per Patient LABORATORY * OUTSIDE LAB-PT/INR (11/24/2023) [facility] INR-OUTSIDE LAB 1.6 11/24/2023 History Per Patient LABORATORY * OUTSIDE LAB-PT/INR (11/23/2023) [facility] INR-OUTSIDE LAB 2.2 11/23/2023 History Per Patient LABORATORY * OUTSIDE LAB-PT/INR (11/22/2023) [facility] INR-OUTSIDE LAB 2.6 11/22/2023 History Per Patient LABORATORY documented in this encounter Visit Diagnoses Diagnosis Anticoagulation management encounter- Primary Encounter for therapeutic drug monitoring History of pulmonary embolism Personal history of [...] the patient have Health Care Power of Heel Scorer? No Healthcare Agents on File Name Relationship Healthcare Agent Relationship Communication Estrella Seth Other - (no specific identity) Health Care Power of Heel Scorer Care Teams Tape Weaver Relationship Specialty Start Date End Date Roberto Askew MD [address] [place] [address] PCP - General Internal Medicine 04/10/20 documented as of this encounter
--- OUTSIDE RECORDS SUMMARY | 2023-12-06 14:46 | External Medical Summary | Summary of Care ---
Author Name Unknown Organization [facility] Address [address] [place] [address] Phone [phone] Care Team Providers Care Machine Sewer Name Role Phone Roberto Askew MD Primary Care Provider + Reason for Visit * Reason Comments Dosage Adjustment Via Phone (anticoag Cl inic) Encounter Details Date Type Department Care Team (Latest Contact Info) Description 12/02/2023 6:00 PM EDT Anticoagulation Pharmacy Call Center [phone] [place] [address] [facility] [address] [place] [address] History of pulmonary embolism* Allergies Active Allergy [...] as of this encounter (statuses as of 12/02/2023) Medications Medication Sig Dispensed Refills Start Date [...] day as needed. 0 Active nystatin (NYSTOP) 672974 UNIT/GM powderIndications:Cu taneous candidiasis Apply topically to [...] C, by GOLD 2017 classification ([facility]),COPD, group D, by GOLD 2017 classification ([facility]) USE 2 PUFFS BY MOUTH EVERY 4 HOURS NEEDED SHORT OF BREATH 6.7 g 5 11/24/2021 Active Magnesium Oxide 400 (241.3 Mg) MG Oral TabletIndications:Co ronary artery disease involving [place] coronary artery of [place] heart without angina pectoris Take by mouth [...] MG Oral TabletIndications:Co ronary artery disease involving [place] coronary artery of [place] heart without angina pectoris Take 1 Tablet by mouth in the morning. In the morning.. 90 Tablet 1 04/05/2023 Active Metoprolol Succinate ER 50 MG Oral Tablet Extended Release 24 Hour (toPROL XL)Indications:Coron uziel artery disease involving [place] coronary artery of [place] heart without angina pectoris TAKE 1 & [...] goal of less than 8.0% ([facility]) Use 3 times daily as directed 300 Strip 3 08/31/2023 Active TRUEplus Lancets 33GIndications:Type 2 diabetes mellitus with hemoglobin A1c goal of less than 8.0% ([facility]) Use 3 times daily as directed 300 [...] as of this encounter (statuses as of 12/02/2023) Active Problems Problem Noted Date Diagnosed Date [...] hemorrhage 10/04/2020 Coronary artery disease invo lving [place] heart without angina pectoris 10/04/2020 COPD, group [...] as of this encounter (statuses as of 12/02/2023) Resolved Problems Problem Noted Date Diagnosed Date [...] Calculus of kidney 08/20/2015 8 Overview: right, [place] CT Vitamin D deficiency 01/31/2015 018 Body [...] as of this encounter (statuses as of 12/02/2023) Immunizations Name Administration Dates Next Due COVID-19 mRNA, LNP-s, No Pre serve, 2-Dose Series ([facility]) 01/02/2021,12/05/2020 DTP Vaccine 07/19/2017,04/03/2014 Hepatitis B, 20+ [...] of this encounter Progress Notes * Aarti Caballero, recreation attendant supervisor - 12/02/2023 3:34 PM EDT Contacts Type Contact Phone/Fax 12/02/2023 03:32 PM EDT Phone (Outgoing) Stanton Milner (Self) [phone] (H) Subjective Patient Findings Negatives: Signs/symptoms of bleeding, Change in health, Change in activity, Upcoming invasive procedure, Missed doses, Extra doses, Change in medications, Change in diet/appetite, Bruising Advised patient to contact Anticoagulation Clinic if any unusual bruising or bleeding, recent illness, changes in medication, or questions/concerns. PT/INR results, Coumadin dose instructions, and next PT/INR date communicated as noted by Pharmacist: Yes ARTEM JEFFRIES Tech 12/02/2023, 3:34 PM * Keren Sanchez RP - 12/02/2023 3:29 PM EDT Coumadin Clinic (region specific) Objective Current Warfarin Dose As of 12/02/2023 Warfarin maintenance plan: 2 mg (4 mg x 0.5) every Sat; 4 mg (4 mg x 1) all other days INR Result As of 12/02/2023 INR goal: 2.0-3.0 INR used for dosin.9 (12/02/2023) Assessment & Plan Warfarin Plan As of 12/02/2023 Full warfarin instructions: 2 mg every Sat; 4 mg all other days No change documented: Keren Sanchez [facility] Next INR check: 12/09/2023 Repeat PT/INR in 1 week(s) Weekly dose: not changed Additional Dosing Information: Description GML([facility]) - pt prefers [facility] at this time Tech to contact patient with dose instructions as noted. Keren Sanchez RPh 12/02/2023, 3:29 PM documented in this encounter Plan of Treatment Upcoming Encounters Date Type Department Care Team (Late st Contact Info) Description 12/06/2023 11:40 AM EDT Office [facility] [address] [facility] [address] Kehinde Mc [facility] [address] [facility] [address] 12/10/2023 6:00 AM EDT Anticoagulation Pharmacy Call Center WB [address] [place] [address] [facility] [address] [facility] [place] [address] Health Maintenance Due Date Last Done Comments DISCUSS TOBACCO CESSATION (REFER TO SMARTSET #3820) 1970 HIV Screening 1985 O2 ASSESSMENT COMPLETED IN PAST YEAR FOR COPD 1988 Pneumococcal Vaccine: Pediatrics (0 to 5 Years) and At-Risk Patients (6 to 64 Years) (2 of 2 - PCV) 05/22/2010 05/22/2009 Cologuard 2015 Fecal Occult Blood Test 2015 Sigmoidoscopy 2015 *ADVANCE DIRECTIVE NOT ON FILE 02/03/2020 LUNG CANCER SCREENING - USE SMARTSET [id number] 2020 02/10/2019, 07/19/2017, 05/09/2017, Additional history exists [...] this encounter Medical Devices Implanted Type Area Sports Book Server Device Identifier Shelf Expiration Date Model / Serial / Lot Tube Flex 3.0x2.5 [id number] - [id number] Implanted:Qty: 1 on 12/07/2014 by Juancarlos Trinidad MD at [facility] Left: Finger [employer] : ORTHOPAEDICS 11/18/2015 [id number] / / [id number] documented as of this encounter Visit Diagnoses [...] the patient have Health Care Power of Back Sizer? No Healthcare Agents on File Name Relationship Healthcare Agent Relationship Communication Estrella Seth Other - (no specific identity) Health Care Power of Back Sizer Care Teams Machine Sewer Relationship Specialty Start Date End Date Roberto Askew MD [address] [facility], [place] [address] PCP - General Internal Medicine 04/10/20 documented as of this encounter
--- OUTSIDE RECORDS SUMMARY | 2023-12-06 14:46 | External Medical Summary | Summary of Care ---
Author Name Unknown Organization [facility] Address [address] [place] [address] Phone [phone] Care Team Providers Care Cafe Worker Name Role Phone Roberto Askew MD Primary Care Provider + Reason for Visit * Reason Onset Date Comments Hospital Follow-Up 11/29/2023 FARIDA Encounter Details Date Type Department Care Team (Late st Contact Info) Description 11/29/[address] [facility] [address] [place] [address] Kimmy Hill, ALEXANDER Hospital Follow-Up (FARIDA) Allergies [...] day as needed. 0 Active nystatin (NYSTOP) 612714 UNIT/GM powderIndications:Cu taneous candidiasis Apply topically to [...] MG Oral TabletIndications:Co ronary artery disease involving solomon coronary artery of solomon heart without angina pectoris Take by mouth [...] MG Oral TabletIndications:Co ronary artery disease involving solomon coronary artery of solomon heart without angina pectoris Take 1 Tablet by mouth in the morning. In the morning.. 90 Tablet 1 04/05/2023 Active Metoprolol Succinate ER 50 MG Oral Tablet Extended Release 24 Hour (toPROL XL)Indications:Coron uziel artery disease involving solomon coronary artery of solomon heart without angina pectoris TAKE 1 & [...] ([facility]) Use 3 times daily as [...] hemorrhage 10/04/2020 Coronary artery disease invo lving solomon heart without angina pectoris 10/04/2020 COPD, group [...] Resolved Date Hyperlipidemia, unspecified 01/24/2021 03/14/2021 Indwelling Fontaine catheter present 06/05/2020 12/10/2021 Coronary [...] Calculus of kidney 08/20/2015 8 Overview: right, [place] CT Vitamin D deficiency 01/31/2015 018 Body [...] mRNA, LNP-s, No Pre serve, 2-Dose Series (LaunchSide) 01/02/2021,12/05/2020 DTP Vaccine 07/19/2017,04/03/2014 Hepatitis B, 20+ [...] Telephone Encounter - Kimmy Hill RN - 11/29/2023 1:29 PM EDT Images from the original note were not included. Transitions of Care Note Reason for Referral:Recent Admission Phone visit for follow up: FARIDA Admitted to: [facility], Date: 11/22 Discharged to: Home with Services, Date: 11/25 Diagnosis driving hospitalization: COPD exacerbation Urinary tract infection secondary to MRSA Source/Contact: Patient SUBJECTIVE Consent: Verbal consent for review of hospital discharge: Yes REVIEW OF SYSTEMS Patient/Other Reports: Current patient/caregiver problems or concerns: none CV: Denies problems Pulmonary: Denies problems, Chronic 02 4 L[address]/c Chills/Sweats/Fever:Denies chills/sweats Denies fever Appetite:Denies problems such as nausea, vomiting, burning, decreased appetite Current diet: diabetic Bowel: denies problems Bladder: chronic fontaine +MRSA Wound (If applicable): N/A Pain:Denies Sleep:Denies problems FUNCTIONAL STATUS: ADL'S: Needs Assistance With:Transferring IADL'S: Needs Assistance With:Grocery Shopping, Cooking food, and Routine Housework Cognitive and Mental Health: denies problems, alert and oriented x 3, and able to communicate, understand instructions, process information. MEDICATION RECONCILIATION Medications: Discharge med list reviewed with patient or caregiver New medication(s) filled since hospitalization- see below Reports all medications taken as prescribed. ASSESSMENT Medication Risk Assessment: PolyPharmacy Did patient fail outpatient treatment? No Discharge instructions available for review? Yes PLAN Symptom Monitoring Interventions:Member/caregiver education - signs and symptoms to contact PrimaryCare (DO NOT DELETE-Three vaz symptoms patient is to report to PCP) 1. Fever greater than 101 2. Cough, SOB, Wheezing 3. Abdominal pain, nausea/diarrhea Support Services TechPediatric Oncologist of Care interventions/Action Plan: Medication reconciliation and 5 - 7 day follow-up with PCP in place - Date: Dr. Mc Tuesday 12/05 Educated on role of FARIDA completed with patient/caregiver. Educated patient/caregiver on patient right to have input on FARIDA plan of care. Verification of Home Health/DME if indicated: YES O2 from [facility] Identified Care Gaps: Yes Care Gaps closed this call: Appointment made or confirmed and Transition of Care follow-up communication Re-evaluation of Plan of Care and progress towards goals achievement: Patient education this visit: Verbal, Strongly encouraged pt to completed his hospital discharge visit. Plan to discharge needs met, verbalizes understanding and agrees with plan. Kimmy Reyna, ALEXANDER documented in this encounter Plan of Treatment Upcoming Encounters Date Type Department Care Team (Late st Contact Info) Description 12/02/2023 9:10 AM EDT Laboratory Lab Mobile Phlebotomy [facility] [address] [place] [address] [facility], [facility] Mobile Home Draw [address] [place] [address] 12/02/2023 6:00 PM EDT Anticoagulation Pharmacy Call Center [phone] Ciera [place] [address] [facility], [facility] [address] [facility] [place] [address] 12/06/2023 11:40 AM EDT Office Visit [facility] [address] [place] [facility] [place] [address] Kehinde Mc MD [address] [place] [address] Health Maintenance Due Date Last Done Comments DISCUSS TOBACCO CESSATION (REFER TO SMARTSET #0881) 1970 HIV Screening 1985 O2 ASSESSMENT COMPLETED IN PAST YEAR FOR COPD 1988 Pneumococcal Vaccine: Pediatrics (0 to 5 Years) and At-Risk Patients (6 to 64 Years) (2 of 2 - PCV) 05/22/2010 05/22/2009 Cologuard 2015 Fecal Occult Blood Test 2015 Sigmoidoscopy 2015 *ADVANCE DIRECTIVE NOT ON FILE 02/03/2020 LUNG CANCER SCREENING - USE SMARTSET 97903 2020 02/10/2019, 07/19/2017, 05/09/2017, Additional history exists Zoster Vaccines (1 of 2) 2020 Hepatitis B (3 of 3 - 19+ 3-dose series) 10/11/2020 06/05/2020, 04/10/2020 Diabetic Foot Exam 12/13/2020 12/14/2019, 1 11/03/2014, 09/03/2014 Albumin/Creatinine Ratio 04/10/2021 04/10/2020 Depression Screening 05/01/2021 05/01/2020, 02/02/20 Diabetic Eye Exam 11/19/2021 11/19/2020, 04/10/2020 HbA1c 09/18/2022 03/19/2022, 0305/2022, 06/05/2021, Additional history exists COVID-19 Vaccine (3 [...] this encounter Medical Devices Implanted Type Area Cooler Conveyor Loader Device Identifier Shelf Expiration Date Model / Serial / Lot Tube Flex 3.0x2.5 [id number] - [id number] Implanted:Qty: 1 on 12/07/2014 by Juancarlos Trinidad MD at [facility] Left: Finger LANDON : ORTHOPAEDICS 11/18/2015 [id number] / / [id number] documented as of this encounter Advance Directives [...] the patient have Health Care Power of Furniture Finisher? No Healthcare Agents on File Name Relationship Healthcare Agent Relationship Communication Estrella Seth Other - (no specific identity) Health Care Power of Furniture Finisher Care Teams Cafe Worker Relationship Specialty Start Date End Date Roberto Askew MD [address] [facility] [place] [address] PCP - General Internal Medicine 04/10/20 documented as of this encounter
--- OUTSIDE RECORDS SUMMARY | 2023-12-06 14:46 | External Medical Summary ---
Author Name Unknown Address Unknown Organization K0G[facility] [address] [place] [id number] Laboratory Report Ordering Provider Test Date Status ABADOMENICALIONEL 12/02/2023 08:33:00 Final Standing order for pt/inr. < br/>Please draw pt/inr every 1 to 4 weeks as requested
Results to [facility]

Warfarin Therapy
INR: 2.0-3.0 conventional anticoagulation
INR: 2.5-3.5 high intensity anticoagulation Observation Date Value Abnormality Reference (Units ) Status PT 12/02/2023 08:33:00 30.7 Above high normal 11 .6-15.2 (seconds) Final INR 12/02/2023 08:33:00 2.9 Above high normal 0. 8-1.2 Final Performing Location [facility] [address] [place] [address]
--- OUTSIDE RECORDS SUMMARY | 2023-12-06 14:46 | External Medical Summary | Summary of Care ---
Author Name Unknown Organization [facility] Address [address] [place] [address] Phone [phone] Care Team Providers Care Advertising Executive Name Role Phone Roberto Askew MD Primary Care Provider + Reason for Visit * Reason Onset Date Comments Hospital Follow-Up 11/26/2023 Encounter Details Date Type Department Care Team ([facility] st Contact Info) Description 11/26/2023 Telephone General Internal Medicine [facility] [address] [place] [address] Roberto Askew MD [address] [place] [address] Hospital Follow-Up Allergies Active Allergy Reactions Criticality [...] day as needed. 0 Active nystatin (NYSTOP) 414105 UNIT/GM powderIndications:Cu taneous candidiasis Apply topically to [...] Oral TabletIndications:Co ronary artery disease involving st. michael ira coronary artery of [facility]. michael ira heart without angina pectoris Take by [...] Oral TabletIndications:Co ronary artery disease involving st. michael ira coronary artery of st. michael ira heart without angina pectoris Take 1 Tablet by mouth in the morning. In the morning.. 90 Tablet 1 04/05/2023 Active Metoprolol Succinate ER 50 MG Oral Tablet Extended Release 24 Hour (toPROL XL)Indications:Coron uziel artery disease involving st. michael ira coronary artery of st. michael ira heart without angina pectoris TAKE 1 [...] than 8.0% ([facility]) Use 3 times daily as directed 300 Strip 3 08/31/2023 Active TRUEplus Lancets 33GIndications:Type 2 diabetes mellitus with hemoglobin A1c goal of less than 8.0% ([facility]) Use 3 times daily as directed [...] 10/04/2020 Coronary artery disease invo lving st. michael ira heart without angina pectoris 10/04/2020 COPD, [...] Calculus of kidney 08/20/2015 8 Overview: right, [place] CT Vitamin D deficiency 01/31/2015 018 Body [...] mRNA, LNP-s, No Pre serve, 2-Dose Series (Data Elite) 01/02/2021,12/05/2020 DTP Vaccine 07/19/2017,04/03/2014 Hepatitis B, 20+ [...] Noted - thank you; pt is on [facility] schedule for follow-up regarding hospital discharge. Thanks, Louis DavidsonD Clinical Pharmacist [facility] ([facility]) (Formerly Telepharmacy) [phone] 11/26/2023 4:12 PM * Telephone Encounter - Drake Hanson RN - 11/26/2023 2:11 PM EST Patient to be discharged at 6PM today from [facility]. INR 1.6 today, coumadin 8mg given [...] 6:45 AM EDT Anticoagulation Pharmacy Call Center [phone] [facility] [place] [address] [facility], [facility] [address] [facility] [place] [address] Health Maintenance Due Date Last Done Comments [...] 02/03/2020 LUNG CANCER SCREENING - USE SMARTSET [id number] 2020 02/10/2019, 07/19/2017, 05/09/2017, Additional history exists [...] this encounter Medical Devices Implanted Type Area Furniture Servicer Device Identifier Shelf Expiration Date Model / Serial / Lot Tube Flex 3.0x2.5 [id number] - [id number] Implanted:Qty: 1 on 12/07/2014 by Juancarlos Trinidad MD at [facility] Left: Finger LANDON : ORTHOPAEDICS 11/18/2015 [id number] / / [id number] documented as of this encounter Advance Directives [...] the patient have Health Care Power of Field Human Resources Manager? No Healthcare Agents on File Name Relationship Healthcare Agent Relationship Communication Estrella Seth Other - (no specific identity) Health Care Power of Field Human Resources Manager Care Teams Advertising Executive Relationship Specialty Start Date End Date Roberto Askew MD [address] [place] [address] PCP - General Internal Medicine 04/10/20 documented as of this encounter
--- NOTE | 2023-12-06 15:06 | XRay Report ---
XR chest 1V portable CLINICAL HISTORY: admission, syncopa TECHNIQUE: Single frontal radiograph of the chest was obtained. Comparison: Comparison is made to chest radiograph 11/22/2023 FINDINGS: Implanted device is seen. Exam is limited by underpenetration. The cardiomediastinal silhouette is st able. The lungs are clear. Blunting of the bilateral costophrenic angles is suggested. IMPRESSION: Possible small bilateral pleural effusions. Otherwise unremarkable. ACT 112: Negative or not required by law. Electronically signed by: Armand Tobar M.D. 12/06/2023 3:04 PM
[2023-12-06] MEDS ORDERED: GLUCOSE 10 TAB/TUBE PO PRN (15:16)
[2023-12-06] MEDS ORDERED: CARBOHYDRATES FOR HYPOGLYCEMIA PO PRN (15:16)
[2023-12-06] MEDS ORDERED: GLUCAGON FOR INJ 1 MG VIAL SQ PRN (15:16)
[2023-12-06] MEDS ORDERED: GLUCOSE 40% GEL 15 GM TUBE PO PRN (15:16)
[2023-12-06] MEDS ORDERED: DEXTROSE 50% 50 ML SYRINGE IV PRN (15:16)
[2023-12-06] MEDS ORDERED: PHARMACY GLYCEMIC MGMT CONSULT PRN (15:16)
[2023-12-06] MEDS ORDERED: SENNA 8.6 MG TAB PO PRN (15:20)
[2023-12-06] MEDS ORDERED: DOCUSATE SODIUM 100 MG CAP PO PRN (15:20)
[2023-12-06] MEDS ORDERED: hydrOXYzine HCl 25 MG TAB PO PRN (15:20)
[2023-12-06] MEDS ORDERED: POTASSIUM CHLORIDE 30 MEQ in SODIUM CHLORIDE 0.9% 500 ML IV SCH (15:30)
--- NOTE | 2023-12-06 15:30 | CT Scan Report ---
HEAD CT NONCONTRAST CT DOSE: 1100.35 mGy.cm HISTORY: syncope and collapse, on AC TECHNIQUE: Multiaxial CT images of the head were performed without the use of intravenous contrast. A utomated exposure control was utilized for this study. A dose lowering technique was utilized adheri ng to the principles of ALARA. Comparison: Head CT 09/29/2023. Findings: Mild mucosal thickening again noted within the right paranasal sinuses. The mastoid air matthew ls are clear. The calvarium and skull base are intact. The ventricles and sulci are within normal shea its. There is no mass, hematoma, midline shift, or acute infarct. Impression: No acute intracranial abnormality. ACT 112: Negative or not required by law. Electronically signed by: Vidal Keller M.D. 12/06/2023 3:28 PM
[2023-12-06] MEDS: BUDESONIDE 0.5 MG/2 ML VIAL (PULMICORT) INH SCH ×2 (15:46→20:32)
[2023-12-06] MEDS: cefTRIAXone SODIUM 2,000 MG in DEXTROSE 5 % MINI-B 50 ML IV SCH (16:52)
[2023-12-06] MEDS: POTASSIUM CHLORIDE CRTAB 20 MEQ TABCR PO SCH (17:27)
[2023-12-06] MEDS: POTASSIUM CHLORIDE / WTR 10 MEQ/100 ML PLCT IV SCH (17:30)
[2023-12-06] MEDS: WARFARIN SOD 2 MG TAB PO SCH (17:37)
[2023-12-06] MEDS ORDERED: VANCOMYCIN CONSULT ACTIVE PRN (17:37)
[2023-12-06] MEDS: buprenorphine HCL 8 MG SUBL SL SCH ×2 (17:38→22:58)
[2023-12-06] MEDS: ERGOCALCIFEROL 1250 MCG (50,000 UNITS) CAP PO SCH (17:38)
[2023-12-06] MEDS: FLUTICASONE/VILANTEROL 100/25MCG 14 PUFFS/INHALER INH SCH (17:39)
[2023-12-06] MEDS: DAPTOmycin 475 MG in SYRINGE 0 ML IV SCH (17:41)
[2023-12-06] MEDS: buprenorphine HCL 8 MG SUBL ONE (18:26)
[2023-12-06] MEDS: INSULIN ASPART PER UNIT CHARGE SC SCH (18:47)
[2023-12-06] MEDS: VANCOMYCIN HCL 2,750 MG in SODIUM CHLORIDE 0.9% 500 ML IV ONE (18:52)
--- NOTE | 2023-12-06 19:56 | Pharmacy Report ---
Pharmacy PK ABX Note - Date of Service December 06, 2023 - Assessment and Plan Assessment 53 year old M receiving vancomycin and ceftriaxone for treatment of complicated UTI. Recent admission for MRSA UTI and discharged on linezolid. Blood and urine cultures pending. 11/22 urine culture (+) MRSA. Renal function stable. Day # 1 of antimicrobial therapy. Plan Vancomycin * Loading dose: 2750 mg IV x 1 * Maintenance dose: 1250 mg IV every 12 hours * Regimen is predicted to achieve target AUC/JERONIMO of 400-600 mg/L.hr * Will obtain a random level 3/20 AM to guide further dosing Pharmacy will continue to follow and will adjust dose/frequency as necessary. Thank you. Pharmacy has transitioned to AUC monitoring for vancomycin. AUC/JERONIMO is the preferred PK/PD target and is associated with decreased risk of nephrotoxicity compared to traditional trough targets.
[2023-12-06] MEDS: ALBUT/IPRATROP 3MG/0.5MG NEB 3 ML VIAL INH SCH (20:32)
[2023-12-06 21:06] LABS: Calcium 9.9 mg/dl (8.6-10.3); Creatinine Clr Calc Pharmacy 145.7 ml/min; Est GFR (African American) 99.2 ml/min; Est GFR (Non-African American) 85.5 ml/min; Potassium 2.9 mmol/L (3.5-5.1)
[2023-12-06] MEDS: METOPROLOL SUCC 25MG EXT REL TAB PO SCH (21:41)
[2023-12-06] MEDS: valACYclovir HCL 500 MG TABLET PO SCH (21:41)
[2023-12-06] MEDS: GABAPENTIN 800 MG TAB PO SCH (21:41)
[2023-12-06] MEDS: MAGNESIUM OXIDE 400 MG TAB PO SCH (21:42)
[2023-12-06] MEDS: LANTUS PER UNIT CHARGE SC ONE (22:33)
[2023-12-06] MEDS: CYCLOBENZAPRINE HCL 10 MG TAB PO PRN (22:58)
[2023-12-06] MEDS: LORazepam 0.5 MG TAB PO STA (22:58)
[2023-12-07] MEDS: ADVANCED PROBIOTIC 625 MG CAPSULE PO SCH (00:02)
[2023-12-07] MEDS: NICOTINE 21 MG/24 HR TDSY TD SCH (01:29)
[2023-12-07] MEDS: VANCOMYCIN HCL 1,250 MG in SODIUM CHLORIDE 0.9% 250 ML IV SCH (05:41)
[2023-12-07] MEDS: PANTOprazole 40 MG TAB PO SCH (05:41)
[2023-12-07 06:35] LABS: Hematocrit (blood only) 40.7 % (42.0-52.0); Hemoglobin 12.9 g/dl (14.0-18.0); Mean Corpuscular Hemoglobin 25.5 pg (25.0-34.0); Mean Corpuscular Hgb Conc 31.7 g/dL (32.0-36.0); Mean Corpuscular Volume 80.4 fL (80.0-100.0); Mean Platelet Volume 10.2 fL (9.4-12.4); Nucleated RBC # (auto) 0.02 K/uL (0.00-0.12); Nucleated RBC % (auto) 0.2 %; Platelet Count 215 K/uL (130-400); RDW Coefficient of Variation 19.1 % (11.5-14.5); RDW Standard Deviation 53.3 fL (36.4-46.3); Red Blood Count 5.06 M/uL (4.70-6.10); White Blood Count 12.15 K/ul (4.8-10.8)
[2023-12-07 06:58] LABS: BUN Creatinine Ratio 20.7 (10-20); Calcium 9.9 mg/dl (8.6-10.3); Creatinine Clr Calc Pharmacy 131.3 ml/min; Est GFR (African American) 87.4 ml/min; Est GFR (Non-African American) 75.4 ml/min; Potassium 2.6 mmol/L (3.5-5.1)
[2023-12-07 07:05] LABS: INR 1.9 (0.9-1.1); Prothrombin Time 19.8 Seconds (9.0-12.0)
[2023-12-07] MEDS: MAGNESIUM SULFATE / D5W 1 GM/100 ML BAG IV ONE (09:08)
[2023-12-07] MEDS: POTASSIUM CHLORIDE / WTR 10 MEQ/100 ML PLCT IV SCH (09:09)
[2023-12-07] MEDS: ASPIRIN 81 MG ECTAB PO SCH (09:13)
[2023-12-07] MEDS: FAMOTIDINE 20 MG TAB PO SCH (09:13)
[2023-12-07] MEDS: DULoxetine HCL 60 MG CAP PO SCH (09:13)
[2023-12-07] MEDS: FERROUS SULFATE 325 MG TAB PO SCH (09:14)
[2023-12-07] MEDS: FOLIC ACID 1 MG TAB PO SCH (09:14)
[2023-12-07] MEDS: FINASTERIDE 5 MG TAB PO SCH (09:14)
[2023-12-07] MEDS: ISOSORBIDE DINITRATE 20 MG TAB PO SCH (09:15)
[2023-12-07] MEDS: SPIRONOLACTONE 25 MG TAB PO SCH (09:16)
[2023-12-07] MEDS: TORSEMIDE 100 MG TAB PO SCH (09:17)
[2023-12-07] MEDS: TAMSULOSIN HCL 0.4 MG CAP PO SCH (09:17)
[2023-12-07] MEDS: POTASSIUM CHLORIDE CRTAB 20 MEQ TABCR PO STA (09:18)
[2023-12-07] MEDS: FLUTICASONE PROPIONATE NA SPR 16 GM BTL NAE SCH (10:29)
[2023-12-07] MEDS: buprenorphine HCL 2 MG SUBL SL SCH (13:26)
--- NOTE | 2023-12-07 14:38 | Pharmacy Report ---
Pharmacy Glycemic Short Note 2 - Date of Service December 07, 2023 - Glycemic Short BSG Results (Last 24 hours): 12/06/23 12/06/23 12/06/23 18:40 20:29 21:25 Glucose 132 H POC Glucose 127 H 132 H 12/07/23 12/07/23 12/07/23 05:32 07:53 11:40 Glucose 136 H POC Glucose 185 H 161 H OUTPATIENT ANTIDIABETIC REGIMEN: * Lantus 50 units SC HS * Novolog SSI SC AC * Glipizide 10 units PO BID * HbA1c: 8.6% (11/23/23) ASSESSMENT: * 53 yo M admitted on 12/06/23 secondary to possible UTI. Pharmacy has been consulted to assist with inpatient glycemic management. Patient is well known to our service. Patient is a Type 2 diabetic as an outpatient. Please refer to outpatient regimen and most recent HbA1c above. * BSGs yesterday were: 156-127-132 mg/dL. Received home dose of basal last night as well as 10 units bolus. * Fasting BSG was 185 mg/dL this AM. Tolerating a T2DM diet. No steroids. On Vancomycin and Ceftriaxone. Inpatient insulin regimen will largely be based on previous admission data. Did increase basal slightly today. PLAN FOR INPATIENT GLYCEMIC CONTROL: * Hold outpatient oral diabetes medications * Basal insulin * Lantus 60 units SC HS * Bolus insulin * NovoLog per scale ACHS or Q6hrs while NPO * Goal Range: Low 110 mg/dL - High 140 mg/dL * Correction Factor: 20 mg/dL/unit * Nutritional / Prandial insulin per carb ratio of 1 unit per 7 grams CHO consumed
--- NOTE | 2023-12-07 15:06 | Hospitalist Progress Note ---
Date of Service December 07, 2023 Assessment & Plan (1) Syncope: (2) Hypokalemia: (3) Shingles rash: (4) Current use of snf anticoagulation: (5) COPD (chronic obstructive pulmonary disease): (6) Chronic indwelling Fontaine catheter: (7) Abnormal finding on urinalysis: (8) (HFpEF) heart failure with preserved ejection fraction: (9) Depression with anxiety: (10) BPH (benign prostatic hyperplasia): Plan 53yo M with PMH significant for chronic diastolic heart failure, history CAD/STEMI, history subdural hematoma/subarachnoid hemorrhage, hypertension, hyperlipidemia, COPD, recurrent PE on Coumadin, DM 2,recurrent UTIs secondary to BPH/chronic urinary retention indwelling Fontaine catheter, chronic anemia, chronic pain on buprenorphine, hx MRSA/VRE admitted for multiple reported syncopal episodes and concern for new rash. Was recently admitted to our service from for MRSA UTI and discharged on linezolid course, which he reports completing. Urinary tract infection Chronic urinary retention indwelling Fontaine catheter UA abnormal, chronic fontaine in place Afebrile but reports low grade temps at home this past week Recent MRSA UTI Urine culture growing GNR. Continue Vanco and ceftriaxone for now Change Fontaine Hypokalemia Initial K 2.6 in ED Likely due to diuretics Continue aggressive repletion Had asked RN to stop some of the IV. Agreed to resume after counseling K is 3.2 this afternoon RN to restart additional IV KCl today. Recheck afterwards Continue KCl 20 po TID Syncopal episode History of events, likely vasovagal in setting of bowel movement Head CT did not show any acute abnormalities Admitting EKG unchanged from previous Shingles Lesions noted on subscapular region of R back, R axilla within past 72 hours, suspected Shingles rash Started on PO valacyclovir, continue 1g Q8H dosing for 7-14 days Monitor for dissemination Contact precautions Recurrent PE on coumadin INR 2.5 on admission INR is 1.9 today On 2mg Sa, 4mg all other days Continue warfarin Needs follow-up with Coumadin clinic on discharge COPD Ongoing tobacco use disorder Currently no signs of exacerbation Continue home inhalers Chronic pain syndrome On Suboxone Chronic diastolic CHF Monitor volume status Continue home diuretics Patient refusing low sodium/heart healthy diet DM II A1c 8.6 Hold home agents Glycemic pharm on board ISS while inpatient BSG AC HS Hyperlipidemia Resume home lipitor BPH Continue Proscar, Flomax Morbid obesity BMI 55.3 - patient has been losing weight, reports feeling better overall DVT Ppx: coumadin Code status: FULL PCP: Jamilah but in process of establishing with Dr. Aponte in [place], closer to home I spent a total of 50 minutes coordinating, documenting, and providing care for this patient excluding time spent in the performance of separately billed services. Admission and Anticipated Discharge Date Admission Date: December 06, 2023 Subjective Patient seen and examined. Reports chronic low back pain and right foot pain. Reports some neck pain Reports that some discomfort around the site of rash on the right arm and Right upper back Denies any dizziness, headache, nausea, vomiting. Reported mild lower abdominal discomfort. Denies any diarrhea, constipation, melena or hematochezia. Physical Exam Constitutional: + well hydrated and + morbidly obese; no acute distress Eyes: PERRL, conjunctivae normal, anicteric sclerae ENMT: external ear and nose normal, oropharynx normal Respiratory: normal respiratory effort; no respiratory distress Diminished breath sounds, room air Cardiovascular: Rate/Rhythm: regular rate and regular rhythm S1-S2 Gastrointestinal (Abdomen): normal bowel sounds, soft, nontender, no hepatosplenomegaly Musculoskeletal: Chronic stasis changes Skin: Crusted maculopapular rash under right axilla and right subcapsular area Neurologic: PERRL, EOMI, accommodation nl, no face palsy, no dysarthria Psychiatric: A+Ox3, euthymic affect Genitourinary: Fontaine in situ Results & Data Results & Data Vital Signs (Past 12 Hours) Vital Signs Temp Pulse Pulse Resp BP Pulse Ox O2 Del Method 12/07/23 11:42 36.5 C 74 19 104/63 92 Room Air 12/07/23 09:57 Room Air, Nasal Cannula 12/07/23 08:04 78 12/07/23 07:55 36.3 C L 69 19 110/75 97 Room Air 12/07/23 07:35 66 18 92 Room Air O2 Flow Rate 12/07/23 11:42 12/07/23 09:57 4 12/07/23 08:04 12/07/23 07:55 12/07/23 07:35 Laboratory Results Abnormal lab results 12/06/23 12/06/23 12/06/23 Range/Units 18:40 20:29 21:25 WBC (4.8-10.8) K/ul Hgb (14.0-18.0) g/dl Hct (42.0-52.0) % MCHC (32.0-36.0) g/dL RDW Std Deviation (36.4-46.3) fL RDW Coeff of Megan (11.5-14.5) % PT (9.0-12.0) Seconds INR (0.9-1.1) Sodium 132 L (136-145) mmol/L Potassium 2.9 L (3.5-5.1) mmol/L Chloride 90 L (98-107) mmol/L Carbon Dioxide 36 H (21-32) mmol/L BUN 27 H (6-23) mg/dl BUN/Creatinine Ratio 27.0 H (10-20) Glucose 132 H (70-99(Fasting)) mg/dl POC Glucose 127 H 132 H (70-99) mg/dl 12/07/23 12/07/23 12/07/23 Range/Units 00:50 05:32 07:53 WBC 12.15 H (4.8-10.8) K/ul Hgb 12.9 L (14.0-18.0) g/dl Hct 40.7 L (42.0-52.0) % MCHC 31.7 L (32.0-36.0) g/dL RDW Std Deviation 53.3 H (36.4-46.3) fL RDW Coeff of Megan 19.1 H (11.5-14.5) % PT 19.8 H (9.0-12.0) Seconds INR 1.9 H (0.9-1.1) Sodium (136-145) mmol/L Potassium 2.9 L 2.6 L (3.5-5.1) mmol/L Chloride 91 L (98-107) mmol/L Carbon Dioxide 38 H (21-32) mmol/L BUN (6-23) mg/dl BUN/Creatinine Ratio 20.7 H (10-20) Glucose 136 H (70-99(Fasting)) mg/dl POC Glucose 185 H (70-99) mg/dl 03/19/24 03/19/24 Range/Units 11:40 12:33 WBC (4.8-10.8) K/ul Hgb (14.0-18.0) g/dl Hct (42.0-52.0) % MCHC (32.0-36.0) g/dL RDW Std Deviation (36.4-46.3) fL RDW Coeff of Megan (11.5-14.5) % PT (9.0-12.0) Seconds INR (0.9-1.1) Sodium (136-145) mmol/L Potassium 3.2 L D (3.5-5.1) mmol/L Chloride (98-107) mmol/L Carbon Dioxide (21-32) mmol/L BUN (6-23) mg/dl BUN/Creatinine Ratio (10-20) Glucose (70-99(Fasting)) mg/dl POC Glucose 161 H (70-99) mg/dl (5) COPD (chronic obstructive pulmonary disease) COPD type: unspecified COPD Qualified Code(s): J44.9 - Chronic obstructive pulmonary disease, unspecified
[2023-12-07] MEDS: ACETAMINOPHEN 1,000 MG/100 ML VIAL IV PRN (15:08)
[2023-12-07] MEDS: LIDOCAINE 2% JELLY 5 ML TUBE EXT ONE (19:01)
[2023-12-07] MEDS: POTASSIUM CHLORIDE / WTR 10 MEQ/100 ML PLCT IV ONE (19:01)
[2023-12-07] MEDS: ALBUT/IPRATROP 3MG/0.5MG NEB 3 ML VIAL INH SCH (19:26)
[2023-12-07] MEDS: LANTUS PER UNIT CHARGE SC SCH (21:08)
[2023-12-08] MEDS: VANCOMYCIN LEVEL ONE (06:18)
[2023-12-08 06:40] LABS: Hematocrit (blood only) 36.8 % (42.0-52.0); Hemoglobin 11.8 g/dl (14.0-18.0); Mean Corpuscular Hemoglobin 25.7 pg (25.0-34.0); Mean Corpuscular Hgb Conc 32.1 g/dL (32.0-36.0); Mean Corpuscular Volume 80.2 fL (80.0-100.0); Mean Platelet Volume 10.3 fL (9.4-12.4); Platelet Count 193 K/uL (130-400); RDW Coefficient of Variation 18.7 % (11.5-14.5); RDW Standard Deviation 53.6 fL (36.4-46.3); Red Blood Count 4.59 M/uL (4.70-6.10); White Blood Count 14.06 K/ul (4.8-10.8)
[2023-12-08 06:54] LABS: BUN Creatinine Ratio 17.1 (10-20); Calcium 9.5 mg/dl (8.6-10.3); Creatinine Clr Calc Pharmacy 130.9 ml/min; Est GFR (African American) 87.4 ml/min; Est GFR (Non-African American) 75.4 ml/min; Potassium 2.9 mmol/L (3.5-5.1)
[2023-12-08 07:07] LABS: INR 1.7 (0.9-1.1); Prothrombin Time 17.6 Seconds (9.0-12.0)
--- NOTE | 2023-12-08 07:22 | Pharmacy Report ---
Pharmacy PK ABX Note - Date of Service December 08, 2023 - Assessment and Plan Assessment 12/07: * Day #3 of antimicrobial therapy. * Afebrile. Leukocytosis persists, 14k today. Renal fxn stable. Blood and back cultures with no growth to date. Prelim urine culture growing Klebsiella pneumoniae that is sensitive to ceftriaxone. Vancomycin can likely be discontinued at this point. Will reach out to provider. 12/05: * 53 year old M receiving vancomycin and ceftriaxone for treatment of complicated UTI. Recent admission for MRSA UTI and discharged on linezolid. Blood and urine cultures pending. 11/22 urine culture (+) MRSA. Renal function stable. * Day # 1 of antimicrobial therapy. Plan Vancomycin * Current regimen: 1250 mg IV every 12 hours * Random level obtained 12/08/23 resulted as 10.7 mcg/mL. This is predicted to achieve target AUC/JERONIMO of 400-600 mg/L.hr * Predicted AUC at steady state: 458 mg/L.hr * Continue 1250 mg IV every 12 hours * Repeat random level ordered for: 12/10/23 Ceftriaxone * 2000 mg IV every 24 hours Pharmacy will continue to follow and will adjust dose/frequency as necessary. Thank you. Pharmacy has transitioned to AUC monitoring for vancomycin. AUC/JERONIMO is the preferred PK/PD target and is associated with decreased risk of nephrotoxicity compared to traditional trough targets.
[2023-12-08] MEDS: ATORVASTATIN 40 MG TAB PO SCH (08:06)
[2023-12-08 09:28] LABS: Magnesium 1.5 mg/dl (1.7-2.4); Phosphorus 2.6 mg/dl (2.5-4.9)
[2023-12-08] MEDS: POTASSIUM CHLORIDE / WTR 10 MEQ/100 ML PLCT IV SCH (10:20)
--- NOTE | 2023-12-08 10:24 | Pharmacy Report ---
Pharmacy Glycemic Short Note 2 - Date of Service December 08, 2023 - Glycemic Short BSG Results (Last 24 hours): 12/07/23 12/07/23 12/07/23 11:40 16:58 20:55 Glucose POC Glucose 161 H 184 H 146 H 12/08/23 12/08/23 12/08/23 05:28 06:02 07:53 Glucose 173 H POC Glucose 187 H 240 H OUTPATIENT ANTIDIABETIC REGIMEN: * Lantus 50 units SC HS * Novolog SSI SC AC * Glipizide 10 units PO BID * HbA1c: 8.6% (11/23/23) ASSESSMENT: 12/07: * Stanton received 91 units of insulin yesterday, 60 basal + 31 bolus. BSGs were: 380-417-959-146 mg/dL. * Fasting BSG was 187 mg/dL this AM. Will increase basal again very slightly today. * BSGs are in an acceptable range at this time so will continue without changes to bolus regimen. * Patient remains on vancomycin and ceftriaxone. 12/06: * 53 yo M admitted on 12/06/23 secondary to possible UTI. Pharmacy has been consulted to assist with inpatient glycemic management. Patient is well known to our service. Patient is a Type 2 diabetic as an outpatient. Please refer to outpatient regimen and most recent HbA1c above. * BSGs yesterday were: 156-127-132 mg/dL. Received home dose of basal last night as well as 10 units bolus. * Fasting BSG was 185 mg/dL this AM. Tolerating a T2DM diet. No steroids. On Vancomycin and Ceftriaxone. Inpatient insulin regimen will largely be based on previous admission data. Did increase basal slightly today. PLAN FOR INPATIENT GLYCEMIC CONTROL: * Hold outpatient oral diabetes medications * Basal insulin * Lantus 65 units SC HS * Bolus insulin * NovoLog per scale ACHS or Q6hrs while NPO * Goal Range: Low 110 mg/dL - High 140 mg/dL * Correction Factor: 20 mg/dL/unit * Nutritional / Prandial insulin per carb ratio of 1 unit per 7 grams CHO consumed
--- NOTE | 2023-12-08 12:36 | Hospitalist Progress Note ---
Date of Service December 08, 2023 Assessment & Plan (1) Syncope: (2) Hypokalemia: (3) Shingles rash: (4) Current use of detention anticoagulation: (5) COPD (chronic obstructive pulmonary disease): (6) Chronic indwelling Fontaine catheter: (7) Abnormal finding on urinalysis: (8) (HFpEF) heart failure with preserved ejection fraction: (9) Depression with anxiety: (10) BPH (benign prostatic hyperplasia): Plan 53yo M with PMH significant for chronic diastolic heart failure, history CAD/STEMI, history subdural hematoma/subarachnoid hemorrhage, hypertension, hyperlipidemia, COPD, recurrent PE on Coumadin, DM 2,recurrent UTIs secondary to BPH/chronic urinary retention indwelling Fontaine catheter, chronic anemia, chronic pain on buprenorphine, hx MRSA/VRE admitted for multiple reported syncopal episodes and concern for new rash. Was recently admitted to our service from for MRSA UTI and discharged on linezolid course, which he reports completing. Urinary tract infection Chronic urinary retention indwelling Fontaine catheter Fontaine catheter associated UTI POA UA abnormal, chronic fontaine in place Afebrile but reports low grade temps at home this past week Recent MRSA UTI Urine culture growing Klebsiella Fontaine changed on 12/07/23 Vanc discontinued Continue ceftriaxone for now Hypokalemia Initial K 2.6 in ED Likely due to diuretics K is 2.9 today despite aggressive repletion Increase home po KCL from 20mEq TID to 40mEq TID Continue aggressive repletion Recheck K this afternoon after repletion Hold metolazone for now Syncopal episode History of events, likely vasovagal in setting of bowel movement Head CT did not show any acute abnormalities Admitting EKG unchanged from previous Shingles Lesions noted on subscapular region of R back, R axilla within past 72 hours, suspected Shingles rash Started on PO valacyclovir, continue 1g Q8H dosing for 7-14 days Monitor for dissemination Contact precautions Recurrent PE on coumadin INR 2.5 on admission INR is 1.7 Will give 4mg of warfarin today and resume home dose Needs follow-up with Coumadin clinic on discharge COPD Ongoing tobacco use disorder Currently no signs of exacerbation Continue home inhalers Chronic pain syndrome On Suboxone Chronic diastolic CHF Monitor volume status Continue home diuretics Patient refusing low sodium/heart healthy diet DM II A1c 8.6 Hold home agents Glycemic pharm on board ISS while inpatient BSG AC HS Hyperlipidemia Continue lipitor BPH Continue Proscar, Flomax Morbid obesity BMI 55 - patient has been losing weight, reports feeling better overall DVT Ppx: coumadin Code status: FULL PCP: Jamilah but in process of establishing with Dr. Aponte in [place], closer to home I spent a total of 40 minutes coordinating, documenting, and providing care for this patient excluding time spent in the performance of separately billed services. Admission and Anticipated Discharge Date Admission Date: December 06, 2023 Subjective Patient seen and examined Reports chronic pains are well controlled No abd pain, dizziness, headache today No new complaints today Physical Exam Constitutional: + well hydrated and + morbidly obese; no acute distress Eyes: PERRL, conjunctivae normal, anicteric sclerae ENMT: external ear and nose normal, oropharynx normal Respiratory: normal respiratory effort; no respiratory distress Cardiovascular: Rate/Rhythm: regular rate and regular rhythm S1 S2 Gastrointestinal (Abdomen): normal bowel sounds, soft, nontender, no hepatosplenomegaly Musculoskeletal: Chronic stasis changes Skin: Maculopapular rash under right axilla and right subcapsular area Neurologic: PERRL, EOMI, accommodation nl, no face palsy, no dysarthria Psychiatric: A+Ox3, euthymic affect Results & Data Results & Data Vital Signs (Past 12 Hours) Vital Signs Temp Pulse Resp BP BP Pulse Ox O2 Del Method 12/08/23 11:25 36.7 C 75 18 107/62 91 Nasal Cannula 12/08/23 09:37 Room Air 12/08/23 07:54 36.5 C 78 21 122/55 L 91 Room Air 12/08/23 07:03 94 H 20 92 Room Air 12/08/23 02:00 36.8 C 76 20 144/67 H 96 Nasal Cannula O2 Flow Rate 12/08/23 11:25 4 12/08/23 09:37 12/08/23 07:54 12/08/23 07:03 12/08/23 02:00 4 Laboratory Results Abnormal lab results 12/07/23 12/07/23 12/08/23 Range/Units 16:58 20:55 05:28 WBC (4.8-10.8) K/ul RBC (4.70-6.10) M/uL Hgb (14.0-18.0) g/dl Hct (42.0-52.0) % RDW Std Deviation (36.4-46.3) fL RDW Coeff of Megan (11.5-14.5) % PT (9.0-12.0) Seconds INR (0.9-1.1) Potassium (3.5-5.1) mmol/L Chloride (98-107) mmol/L Carbon Dioxide (21-32) mmol/L Glucose (70-99(Fasting)) mg/dl POC Glucose 184 H 146 H 187 H (70-99) mg/dl Magnesium (1.7-2.4) mg/dl 12/08/23 12/08/23 12/08/23 Range/Units 06:02 07:53 11:36 WBC 14.06 H (4.8-10.8) K/ul RBC 4.59 L (4.70-6.10) M/uL Hgb 11.8 L (14.0-18.0) g/dl Hct 36.8 L (42.0-52.0) % RDW Std Deviation 53.6 H (36.4-46.3) fL RDW Coeff of Megan 18.7 H (11.5-14.5) % PT 17.6 H (9.0-12.0) Seconds INR 1.7 H (0.9-1.1) Potassium 2.9 L (3.5-5.1) mmol/L Chloride 95 L (98-107) mmol/L Carbon Dioxide 37 H (21-32) mmol/L Glucose 173 H (70-99(Fasting)) mg/dl POC Glucose 240 H 154 H (70-99) mg/dl Magnesium 1.5 L (1.7-2.4) mg/dl (5) COPD (chronic obstructive pulmonary disease) COPD type: unspecified COPD Qualified Code(s): J44.9 - Chronic obstructive pulmonary disease, unspecified
[2023-12-08] MEDS: MAGNESIUM SULFATE / D5W 1 GM/100 ML BAG IV ONE (13:04)
[2023-12-08] MEDS: POTASSIUM CHLORIDE CRTAB 20 MEQ TABCR PO SCH (14:26)
[2023-12-08] MEDS ORDERED: metOLazone 2.5 MG TABLET PO SCH (16:00)
[2023-12-08] MEDS: WARFARIN SOD 2 MG TAB PO ONE (16:06)
[2023-12-08] MEDS: LANTUS PER UNIT CHARGE SC SCH (21:06)
[2023-12-09 04:44] LABS: Hematocrit (blood only) 38.2 % (42.0-52.0); Hemoglobin 12.1 g/dl (14.0-18.0); Mean Corpuscular Hemoglobin 25.5 pg (25.0-34.0); Mean Corpuscular Hgb Conc 31.7 g/dL (32.0-36.0); Mean Corpuscular Volume 80.6 fL (80.0-100.0); Mean Platelet Volume 10.3 fL (9.4-12.4); Platelet Count 195 K/uL (130-400); RDW Coefficient of Variation 18.8 % (11.5-14.5); RDW Standard Deviation 53.6 fL (36.4-46.3); Red Blood Count 4.74 M/uL (4.70-6.10); White Blood Count 14.84 K/ul (4.8-10.8)
[2023-12-09 04:51] LABS: BUN Creatinine Ratio 18.5 (10-20); Calcium 9.5 mg/dl (8.6-10.3); Creatinine Clr Calc Pharmacy 117.2 ml/min; Est GFR (African American) 76.4 ml/min; Magnesium 1.6 mg/dl (1.7-2.4); Phosphorus 2.7 mg/dl (2.5-4.9)
[2023-12-09] MEDS: POTASSIUM CHLORIDE / WTR 10 MEQ/100 ML PLCT IV SCH (09:35)
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
[2023-12-09] MEDS: MAGNESIUM SULFATE / D5W 1 GM/100 ML BAG IV SCH (10:59)
[2023-12-09] MEDS: TORSEMIDE 100 MG TAB PO STA (11:03)
[2023-12-09] MEDS: SPIRONOLACTONE 25 MG TAB PO STA (11:03)
[2023-12-09] MEDS: MAGNESIUM CHLORIDE W/CALCIUM 64MG DELAYED REL TAB PO STA (11:03)
[2023-12-09] MEDS: ONDANSETRON INJ 2 MG/ML 2 ML VIAL IV PRN (12:08)
[2023-12-09] MEDS: POLYETHYLENE (MIRALAX) 17 GM PACK PO PRN (12:32)
--- NOTE | 2023-12-09 12:46 | Hospitalist Progress Note ---
Date of Service December 09, 2023 Assessment & Plan (1) Syncope: (2) Hypokalemia: (3) Shingles rash: (4) Current use of custodial anticoagulation: (5) COPD (chronic obstructive pulmonary disease): (6) Chronic indwelling Fontaine catheter: (7) Abnormal finding on urinalysis: (8) (HFpEF) heart failure with preserved ejection fraction: (9) Depression with anxiety: (10) BPH (benign prostatic hyperplasia): Plan 53yo M with PMH significant for chronic diastolic heart failure, history CAD/STEMI, history subdural hematoma/subarachnoid hemorrhage, hypertension, hyperlipidemia, COPD, recurrent PE on Coumadin, DM 2,recurrent UTIs secondary to BPH/chronic urinary retention indwelling Fontaine catheter, chronic anemia, chronic pain on buprenorphine, hx MRSA/VRE admitted for multiple reported syncopal episodes and concern for new rash. Was recently admitted to our service from 11/22- for MRSA UTI and discharged on linezolid course, which he reports completing. Urinary tract infection Chronic urinary retention indwelling Fontaine catheter Fontaine catheter associated UTI POA UA abnormal, chronic fontaine in place Afebrile but reports low grade temps at home this past week Recent MRSA UTI Urine culture growing Klebsiella Fontaine changed on 12/07/23 Currently on ceftriaxone Hypokalemia Initial K 2.6 in ED K is 3 today despite aggressive repletion Had increased home po KCL from 20mEq TID to 40mEq TID and stopped metolazone Nephrology consulted today to help with electrolyte mgt Nephrology increased aldactone to 50mg daily, torsemide to 100mg daily and changed mag oxide to 128mg BID Nephro recommends not to continue metolazone going forward Syncopal episode History of events, likely vasovagal in setting of bowel movement Hypokalemia may be contributing to this Head CT did not show any acute abnormalities Admitting EKG unchanged from previous Shingles Lesions noted on subscapular region of R back, R axilla within past 72 hours, suspected Shingles rash Started on PO valacyclovir, continue 1g Q8H dosing for 7-14 days Monitor for dissemination Contact precautions Recurrent PE on coumadin INR 2.5 on admission Gave extra dose of warfarin on 12/08/23 for INR of 1.7 Monitor INR Needs follow-up with Coumadin clinic on discharge COPD Ongoing tobacco use disorder Currently no signs of exacerbation Continue home inhalers Chronic pain syndrome On Suboxone Chronic diastolic CHF Monitor volume status Continue home diuretics Patient did not like the low sodium diet I educated him that he needs the low sodium diet to also help us with the diuretic/electrolyte management DM II A1c 8.6 Hold home agents Glycemic pharm on board ISS while inpatient BSG AC HS Hyperlipidemia Continue lipitor BPH Continue Proscar, Flomax Morbid obesity BMI 55 - patient has been losing weight, reports feeling better overall DVT Ppx: coumadin Code status: FULL PCP: Jamilah but in process of establishing with Dr. Aponte in [place], closer to home I spent a total of 40 minutes coordinating, documenting, and providing care for this patient excluding time spent in the performance of separately billed services. Admission and Anticipated Discharge Date Admission Date: December 06, 2023 Subjective Patient seen and examined No new complaints today Physical Exam Constitutional: + well hydrated and + morbidly obese; no acute distress Eyes: PERRL, conjunctivae normal, anicteric sclerae ENMT: external ear and nose normal, oropharynx normal Respiratory: normal respiratory effort; no respiratory distress Cardiovascular: Rate/Rhythm: regular rate and regular rhythm S1 S2 Gastrointestinal (Abdomen): normal bowel sounds, soft, nontender, no hepatosplenomegaly Musculoskeletal: Chronic stasis changes Neurologic: PERRL, EOMI, accommodation nl, no face palsy, no dysarthria Psychiatric: A+Ox3, euthymic affect Results & Data Results & Data Vital Signs (Past 12 Hours) Vital Signs Temp Pulse Pulse Resp BP Pulse Ox O2 Del Method 12/09/23 10:44 36.6 C 75 20 135/71 93 Nasal Cannula 12/09/23 09:17 Room Air 12/09/23 08:10 36.4 C L 74 19 129/79 92 Nasal Cannula 12/09/23 07:52 65 12/09/23 07:33 62 16 91 Room Air 12/09/23 02:29 36.6 C 67 20 121/75 91 Room Air O2 Flow Rate 12/09/23 10:44 4 12/09/23 09:17 12/09/23 08:10 4 12/09/23 07:52 12/09/23 07:33 12/09/23 02:29 Laboratory Results Abnormal lab results 12/08/23 12/08/23 12/09/23 Range/Units 17:05 20:15 04:05 WBC (4.8-10.8) K/ul Hgb (14.0-18.0) g/dl Hct (42.0-52.0) % MCHC (32.0-36.0) g/dL RDW Std Deviation (36.4-46.3) fL RDW Coeff of Megan (11.5-14.5) % Potassium 3.0 L (3.5-5.1) mmol/L Chloride 95 L (98-107) mmol/L Carbon Dioxide 37 H (21-32) mmol/L Glucose 215 H (70-99(Fasting)) mg/dl POC Glucose 243 H 153 H (70-99) mg/dl Magnesium 1.6 L (1.7-2.4) mg/dl 12/09/23 12/09/23 12/09/23 Range/Units 04:06 08:09 11:43 WBC 14.84 H (4.8-10.8) K/ul Hgb 12.1 L (14.0-18.0) g/dl Hct 38.2 L (42.0-52.0) % MCHC 31.7 L (32.0-36.0) g/dL RDW Std Deviation 53.6 H (36.4-46.3) fL RDW Coeff of Megan 18.8 H (11.5-14.5) % Potassium (3.5-5.1) mmol/L Chloride (98-107) mmol/L Carbon Dioxide (21-32) mmol/L Glucose (70-99(Fasting)) mg/dl POC Glucose 251 H 151 H (70-99) mg/dl Magnesium (1.7-2.4) mg/dl (5) COPD (chronic obstructive pulmonary disease) COPD type: unspecified COPD Qualified Code(s): J44.9 - Chronic obstructive pulmonary disease, unspecified
[2023-12-09] MEDS: MAGNESIUM CHLORIDE W/CALCIUM 64MG DELAYED REL TAB PO SCH (20:37)
[2023-12-10 06:31] LABS: Magnesium 1.7 mg/dl (1.7-2.4); Potassium 3.5 mmol/L (3.5-5.1)
[2023-12-10 06:35] LABS: Hematocrit (blood only) 39.7 % (42.0-52.0); Hemoglobin 13.1 g/dl (14.0-18.0); Mean Corpuscular Hemoglobin 26.3 pg (25.0-34.0); Mean Corpuscular Volume 79.6 fL (80.0-100.0); Mean Platelet Volume 10.1 fL (9.4-12.4); Platelet Count 183 K/uL (130-400); RDW Standard Deviation 52.2 fL (36.4-46.3); Red Blood Count 4.99 M/uL (4.70-6.10); White Blood Count 13.92 K/ul (4.8-10.8)
[2023-12-10 06:36] LABS: Creatinine Clr Calc Pharmacy 117.2 ml/min; Est GFR (African American) 76.4 ml/min; Phosphorus 3.5 mg/dl (2.5-4.9)
[2023-12-10 06:52] LABS: INR 1.5 (0.9-1.1); Prothrombin Time 16.5 Seconds (9.0-12.0)
[2023-12-10] MEDS: SPIRONOLACTONE 25 MG TAB PO SCH (08:38)
[2023-12-10] MEDS: TORSEMIDE 100 MG TAB PO SCH (08:38)
--- NOTE | 2023-12-10 11:35 | Nephrology Progress Note ---
Date of Service December 10, 2023 Assessment & Plan Admission and Anticipated Discharge Date Admission Date: December 06, 2023 Subjective Assessment & Plan (1) Acute hypokalemia: Has combined Low K and Low Mag secondary to use of Metolazone. In a lot of patients Combination Metolazone and loop diuretics is not possible because of Severe Hypokalemia like in this patient. STOP METOLAZONE FOREVER. he has plenty of room to go up on torsemide--start with 100 daily. Also raise Aldactone to 50 daily. Continue kcl 40 tid. His total deficit was very very massive and as a result taking many days to correct. Finally today is low normal. Also low mag--slow mag 128 bid he will need Nephrology f/u If possible--better inperson or if not telemed--has issues with Transport and mobility. he gets Home blood draw and Need renal panel checked next week at home At discharge : only torsemide and Aldactone and No metolazone. If he needs more diuretics would raise the dose of torsemide and Aldactone (2) Syncope: Possible this was caused by very low K+ (3) UTI (urinary tract infection) due to urinary indwelling catheter: Noted. has chronic Lloyd S--Feels better. Lot of urine. K and mag better. Physical Exam Physical Exam: General- Not in acute distress. Obese ++ room air Head- atraumatic. MM moist Neck- supple, no JVD. Lungs- clear to auscultation b/l mild wheezing Heart- regular rhythm; no murmur, no gallop. Abdomen- normal bowel sounds, soft, nontender, no distension Extremities- b/l lower extremity chronic skin changes but not much edema Neuro- alert, oriented x 3 normal Speech Skin- warm & dry Results & Data Vital Signs (Past 12 Hours) Vital Signs Temp Pulse Pulse Resp BP Pulse Ox O2 Del Method 12/10/23 09:27 61 12/10/23 07:56 36.5 C 61 20 119/73 96 Room Air 12/10/23 07:34 Room Air 12/10/23 07:16 67 18 93 Nasal Cannula 12/10/23 03:11 36.6 C 63 20 125/75 94 Room Air 12/09/23 23:48 66 O2 Flow Rate 12/10/23 09:27 12/10/23 07:56 12/10/23 07:34 12/10/23 07:16 4 12/10/23 03:11 12/09/23 23:48
--- NOTE | 2023-12-10 12:24 | Pharmacy Report ---
Pharmacy Glycemic Short Note 2 - Date of Service December 10, 2023 - Glycemic Short BSG Results (Last 24 hours): 12/09/23 12/09/23 12/10/23 17:07 20:17 05:52 Glucose 215 H POC Glucose 289 H 285 H 12/10/23 12/10/23 07:55 11:40 Glucose POC Glucose 179 H 278 H OUTPATIENT ANTIDIABETIC REGIMEN: * Lantus 50 units SC HS * Novolog SSI SC AC * Glipizide 10 units PO BID * HbA1c: 8.6% (11/23/23) ASSESSMENT: 12/09: * Patient received total of 112 units of insulin yesterday, of which 65 units were basal * Fasting BSG 179 mg/dL - trending down, will consider increasing dose tomorrow if tomorrow's AM fasting still above goal * Plan to tighten CF/CR today as BSGs remain above goal range 12/07: * Stanton received 91 units of insulin yesterday, 60 basal + 31 bolus. BSGs were: 018-271-724-146 mg/dL. * Fasting BSG was 187 mg/dL this AM. Will increase basal again very slightly today. * BSGs are in an acceptable range at this time so will continue without changes to bolus regimen. * Patient remains on vancomycin and ceftriaxone. 12/06: * 53 yo M admitted on 12/06/23 secondary to possible UTI. Pharmacy has been consulted to assist with inpatient glycemic management. Patient is well known to our service. Patient is a Type 2 diabetic as an outpatient. Please refer to outpatient regimen and most recent HbA1c above. * BSGs yesterday were: 156-127-132 mg/dL. Received home dose of basal last night as well as 10 units bolus. * Fasting BSG was 185 mg/dL this AM. Tolerating a T2DM diet. No steroids. On Vancomycin and Ceftriaxone. Inpatient insulin regimen will largely be based on previous admission data. Did increase basal slightly today. PLAN FOR INPATIENT GLYCEMIC CONTROL: * Hold outpatient oral diabetes medications * Basal insulin * Lantus 65 units SC HS * Bolus insulin * NovoLog per scale ACHS or Q6hrs while NPO * Goal Range: Low 110 mg/dL - High 140 mg/dL * Correction Factor: 15 mg/dL/unit * Nutritional / Prandial insulin per carb ratio of 1 unit per 5 grams CHO consumed
--- NOTE | 2023-12-10 14:28 | Hospitalist Progress Note ---
Date of Service December 10, 2023 Assessment & Plan (1) Syncope: (2) Hypokalemia: (3) Shingles rash: (4) Current use of [facility]: (5) COPD (chronic obstructive pulmonary disease): (6) Chronic indwelling Fontaine catheter: (7) Abnormal finding on urinalysis: (8) (HFpEF) heart failure with preserved ejection fraction: (9) Depression with anxiety: (10) BPH (benign prostatic hyperplasia): Plan 53yo M with PMH significant for chronic diastolic heart failure, history CAD/STEMI, history subdural hematoma/subarachnoid hemorrhage, hypertension, hyperlipidemia, COPD, recurrent PE on Coumadin, DM 2,recurrent UTIs secondary to BPH/chronic urinary retention indwelling Fontaine catheter, chronic anemia, chronic pain on buprenorphine, hx MRSA/VRE admitted for multiple reported syncopal episodes and concern for new rash. Was recently admitted to our service from 11/22- for MRSA UTI and discharged on linezolid course, which he reports completing. Per previous provider with addendum: Urinary tract infection Chronic urinary retention indwelling Fontaine catheter Fontaine catheter associated UTI POA UA abnormal, chronic fontaine in place Afebrile but reports low grade temps at home this past week Recent MRSA UTI Urine culture growing Klebsiella Fontaine changed on 12/07/23 Currently on ceftriaxone, transition to po on discharge Hypokalemia Initial K 2.6 in ED K was 3 despite aggressive repletion Had increased home po KCL from 20mEq TID to 40mEq TID and stopped metolazone Nephrology consulted appreciate recs Nephrology increased aldactone to 50mg daily, torsemide to 100mg daily and changed mag oxide to 128mg BID Nephro recommends not to continue metolazone going forward Currently wnl Syncopal episode History of events, likely vasovagal in setting of bowel movement Hypokalemia may be contributing to this Head CT did not show any acute abnormalities Admitting EKG unchanged from previous Has loop recorder, follows with cardiology Shingles Lesions noted on subscapular region of R back, R axilla within past 72 hours, suspected Shingles rash Started on PO valacyclovir, continue 1g Q8H dosing for 7-14 days Monitor for dissemination Contact precautions Improving Intertrigo Oral thrush Pt started on miconazole powder for intertrigo On nystatin po for thrush Recurrent PE on coumadin INR 2.5 on admission Gave extra dose of warfarin on 12/08/23 for INR of 1.7 Continues to downtrend, started on Lovenox bridge Monitor INR Needs follow-up with Coumadin clinic on discharge COPD Ongoing tobacco use disorder Currently no signs of exacerbation Continue home inhalers Chronic pain syndrome On Suboxone Chronic diastolic CHF Monitor volume status Continue home diuretics On low sodium diet, continue DM II A1c 8.6 Hold home agents Glycemic pharm on board ISS while inpatient BSG AC HS Hyperlipidemia Continue lipitor BPH Continue Proscar, Flomax Morbid obesity BMI 55 - patient has been losing weight, reports feeling better overall DVT Ppx: coumadin Code status: FULL PCP: [facility] but in process of establishing with Dr. Aponte in [place], closer to home Admission and Anticipated Discharge Date Admission Date: December 06, 2023 Subjective Pt seen while up on the fourth floor. Notes improving, trying to set up ride for discharge in 1-2 days. Asking about low sodium diet. Would like his asthma inhaler for use. Concerned about groin rash and rash under breasts. Review of Systems Review of Systems: All systems reviewed & are unremarkable except as noted in Subjective Physical Exam Physical Exam: General: Alert, oriented. No acute distress Skin: intertigo and groin erythema in the folds noted Psych: Appropriate mood and affect Neuro: No gross deficits HEENT: NC/AT, PERRLA, EOMI, oropharynx moist. Chest: Nontender to palpation. CV: RRR, Normal s1, s2. No murmurs appreciated Resp: Breath sounds decreased bilaterally, no increased effort of breathing. Abdomen: Soft, nontender, nondistended. No guarding. No organomegaly appreciated. Extremities: edema in lower extremities bilaterally. Results & Data Results & Data Vital Signs (Past 12 Hours) Vital Signs Temp Pulse Pulse Resp BP Pulse Ox O2 Del Method 12/10/23 11:43 36.6 C 62 20 121/70 94 Room Air 12/10/23 09:27 61 12/10/23 07:56 36.5 C 61 20 119/73 96 Room Air 12/10/23 07:34 Room Air 12/10/23 07:16 67 18 93 Nasal Cannula 12/10/23 03:11 36.6 C 63 20 125/75 94 Room Air O2 Flow Rate 12/10/23 11:43 12/10/23 09:27 12/10/23 07:56 12/10/23 07:34 12/10/23 07:16 4 12/10/23 03:11 (5) COPD (chronic obstructive pulmonary disease) COPD type: unspecified COPD Qualified Code(s): J44.9 - Chronic obstructive pulmonary disease, unspecified
[2023-12-10] MEDS: WARFARIN SOD 4 MG TAB PO SCH (15:35)
[2023-12-10] MEDS: MICONAZOLE NITRATE POWDER 85 GM EXT SCH (18:20)
[2023-12-10] MEDS: NYSTATIN SUSP 500,000 U/5 ML UDC PO SCH (18:21)
[2023-12-10] MEDS: ACETAMINOPHEN 1,000 MG/100 ML VIAL IV PRN (21:50)
[2023-12-11 06:40] LABS: Basophils # (auto) 0.06 K/uL (0.00-0.20); Basophils % (auto) 0.5 %; Eosinophils # (auto) 0.64 K/uL (0.00-0.50); Hematocrit (blood only) 39.6 % (42.0-52.0); Hemoglobin 13.1 g/dl (14.0-18.0); Immature Granulocytes # (auto) 0.16 K/uL (0.01-0.20); Immature Granulocytes % (auto) 1.3 %; Lymphocytes # (auto) 2.89 K/uL (1.20-3.40); Lymphocytes % (auto) 22.8 %; Mean Corpuscular Hemoglobin 26.2 pg (25.0-34.0); Mean Corpuscular Hgb Conc 33.1 g/dL (32.0-36.0); Mean Corpuscular Volume 79.2 fL (80.0-100.0); Mean Platelet Volume 9.9 fL (9.4-12.4); Monocytes # (auto) 0.87 K/uL (0.11-0.59); Monocytes % (auto) 6.9 %; Neutrophils # (auto) 8.08 K/uL (1.40-6.50); Neutrophils % (auto) 63.5 %; Platelet Count 175 K/uL (130-400); RDW Standard Deviation 52.1 fL (36.4-46.3)
[2023-12-11 07:01] LABS: INR 1.6 (0.9-1.1); Prothrombin Time 17.2 Seconds (9.0-12.0)
[2023-12-11 07:02] LABS: Albumin Globulin Ratio 1.1 (0.9-2); Albumin Level 3.6 gm/dl (3.4-5.0); BUN Creatinine Ratio 20.6 (10-20); Bilirubin,Total 0.4 mg/dl (0.2-1.0); Calcium 9.6 mg/dl (8.6-10.3); Creatinine Clr Calc Pharmacy 107.3 ml/min; Est GFR (African American) 68.4 ml/min; Globulin 3.2 gm/dl (2.5-4.0); Magnesium 1.6 mg/dl (1.7-2.4); Phosphorus 3.5 mg/dl (2.5-4.9); Potassium 3.9 mmol/L (3.5-5.1); Total Protein 6.8 gm/dl (6.0-8.3)
[2023-12-11] MEDS ORDERED: ENOXAPARIN 1 MG/KG SC SCH (09:00)
[2023-12-11] MEDS: MAGNESIUM SULFATE / D5W 1 GM/100 ML BAG IV SCH (09:37)
[2023-12-11] MEDS: WARFARIN SOD 5 MG TAB PO ONE (09:46)
[2023-12-11] MEDS: ENOXAPARIN 150 MG/ML SYR SQ SCH (09:50)
[2023-12-11] MEDS: ALBUTEROL HFA 8 GM INHALER INH PRN (10:20)
[2023-12-11] MEDS: LANTUS PER UNIT CHARGE SC SCH (20:45)
--- NOTE | 2023-12-11 22:43 | Hospitalist Progress Note ---
Date of Service December 11, 2023 Assessment & Plan (1) Syncope: (2) Hypokalemia: (3) Shingles rash: (4) Current use of [facility] anticoagulation: (5) COPD (chronic obstructive pulmonary disease): (6) Chronic indwelling Fontaine catheter: (7) Abnormal finding on urinalysis: (8) (HFpEF) heart failure with preserved ejection fraction: (9) Depression with anxiety: (10) BPH (benign prostatic hyperplasia): Plan 53yo M with PMH significant for chronic diastolic heart failure, history CAD/STEMI, history subdural hematoma/subarachnoid hemorrhage, hypertension, hyperlipidemia, COPD, recurrent PE on Coumadin, DM 2,recurrent UTIs secondary to BPH/chronic urinary retention indwelling Fontaine catheter, chronic anemia, chronic pain on buprenorphine, hx MRSA/VRE admitted for multiple reported syncopal episodes and concern for new rash. Was recently admitted to our service from 11/22- for MRSA UTI and discharged on linezolid course, which he reports completing. Per previous provider with addendum: Urinary tract infection Chronic urinary retention indwelling Fontaine catheter Fontaine catheter associated UTI POA UA abnormal, chronic fontaine in place Afebrile but reports low grade temps at home this past week Recent MRSA UTI Urine culture growing Klebsiella Fontaine changed on 12/07/23 Currently on ceftriaxone, transition to po on discharge Hypokalemia Initial K 2.6 in ED K was 3 despite aggressive repletion Had increased home po KCL from 20mEq TID to 40mEq TID and stopped metolazone Nephrology consulted appreciate recs Nephrology increased aldactone to 50mg daily, torsemide to 100mg daily and changed mag oxide to 128mg BID Nephro recommends not to continue metolazone going forward Currently wnl Syncopal episode History of events, likely vasovagal in setting of bowel movement Hypokalemia may be contributing to this Head CT did not show any acute abnormalities Admitting EKG unchanged from previous Has loop recorder, follows with cardiology Shingles Lesions noted on subscapular region of R back, R axilla within past 72 hours, suspected Shingles rash Started on PO valacyclovir, continue 1g Q8H dosing for 7-14 days Monitor for dissemination Contact precautions Improving Intertrigo Oral thrush Pt started on miconazole powder for intertrigo On nystatin po for thrush Recurrent PE on coumadin INR 2.5 on admission Gave extra dose of warfarin on 12/08/23 for INR of 1.7 Continues to downtrend, started on Lovenox bridge Monitor INR Needs follow-up with Coumadin clinic on discharge COPD Ongoing tobacco use disorder Currently no signs of exacerbation Continue home inhalers Chronic pain syndrome On Suboxone Chronic diastolic CHF Monitor volume status Continue home diuretics On low sodium diet, continue DM II A1c 8.6 Hold home agents Glycemic pharm on board ISS while inpatient BSG AC HS Hyperlipidemia Continue lipitor BPH Continue Proscar, Flomax Morbid obesity BMI 55 - patient has been losing weight, reports feeling better overall DVT Ppx: coumadin Code status: FULL PCP: Jamilah but in process of establishing with Dr. Aponte in [place], closer to home Admission and Anticipated Discharge Date Admission Date: December 06, 2023 Subjective Pt states he is going home tomorrow when ride available. Denies acute concerns, feels rash better. Review of Systems Review of Systems: All systems reviewed & are unremarkable except as noted in Subjective Physical Exam Physical Exam: General: Alert, oriented. No acute distress Skin: intertigo and groin erythema in the folds noted Psych: Appropriate mood and affect Neuro: No gross deficits HEENT: NC/AT, PERRLA, EOMI, oropharynx moist. Chest: Nontender to palpation. CV: RRR, Normal s1, s2. No murmurs appreciated Resp: Breath sounds decreased bilaterally, no increased effort of breathing. Abdomen: Soft, nontender, nondistended. No guarding. No organomegaly appreciated. Extremities: edema in lower extremities bilaterally. Results & Data Results & Data Vital Signs (Past 12 Hours) Vital Signs Temp Pulse Pulse Resp BP Pulse Ox O2 Del Method 12/11/23 07:30 57 L 16 95 Room Air 12/11/23 03:12 36.5 C 65 18 138/75 95 Room Air 12/10/23 23:00 36.6 C 74 18 151/84 H 95 Room Air 12/10/23 22:00 66 12/10/23 20:30 Room Air (5) COPD (chronic obstructive pulmonary disease) COPD type: unspecified COPD Qualified Code(s): J44.9 - Chronic obstructive pulmonary disease, unspecified
[2023-12-12 04:54] LABS: Basophils # (auto) 0.06 K/uL (0.00-0.20); Basophils % (auto) 0.5 %; Eosinophils # (auto) 0.53 K/uL (0.00-0.50); Eosinophils % (auto) 4.2 %; Hematocrit (blood only) 40.9 % (42.0-52.0); Immature Granulocytes # (auto) 0.06 K/uL (0.01-0.20); Immature Granulocytes % (auto) 0.5 %; Lymphocytes # (auto) 2.82 K/uL (1.20-3.40); Lymphocytes % (auto) 22.1 %; Mean Corpuscular Hemoglobin 25.6 pg (25.0-34.0); Mean Corpuscular Hgb Conc 31.8 g/dL (32.0-36.0); Mean Corpuscular Volume 80.5 fL (80.0-100.0); Monocytes # (auto) 0.79 K/uL (0.11-0.59); Monocytes % (auto) 6.2 %; Neutrophils % (auto) 66.5 %; Platelet Count 168 K/uL (130-400); RDW Coefficient of Variation 19.4 % (11.5-14.5); RDW Standard Deviation 52.6 fL (36.4-46.3); Red Blood Count 5.08 M/uL (4.70-6.10); White Blood Count 12.76 K/ul (4.8-10.8)
[2023-12-12 05:15] LABS: Albumin Globulin Ratio 1.2 (0.9-2); Albumin Level 3.7 gm/dl (3.4-5.0); BUN Creatinine Ratio 27.7 (10-20); Bilirubin,Total 0.4 mg/dl (0.2-1.0); Calcium 9.2 mg/dl (8.6-10.3); Creatinine Clr Calc Pharmacy 112.2 ml/min; Est GFR (African American) 72.2 ml/min; Est GFR (Non-African American) 62.3 ml/min; Globulin 3.2 gm/dl (2.5-4.0); Potassium 3.4 mmol/L (3.5-5.1); Total Protein 6.9 gm/dl (6.0-8.3)
[2023-12-12 05:20] LABS: Prothrombin Time 20.8 Seconds (9.0-12.0)
[2023-12-12] MEDS: POTASSIUM CHLORIDE CRTAB 20 MEQ TABCR PO STA ×2 (11:34→16:34)
--- NOTE | 2023-12-12 12:42 | Nephrology Progress Note ---
Date of Service December 12, 2023 Assessment & Plan (1) Acute hypokalemia: Plan: Has combined Low K and Low Mag secondary to use of Metolazone. In a lot of patients Combination Metolazone and loop diuretics is not possible because of Severe Hypokalemia like in this patient. STOP METOLAZONE FOREVER. Continue on torsemide 100 daily and Aldactone to 50 daily with kcl 40 tid. His total deficit was very very massive and as a result taking many days to correct.K is again low today Also low mag--Continue on to slowmag 128 bid At discharge : only torsemide and Aldactone and No metolazone. If he needs more diuretics would raise the dose of torsemide and Aldactone (2) Syncope: Plan: Possible this was caused by very low K+ (3) UTI (urinary tract infection) due to urinary indwelling catheter: Plan: Noted. has chronic Lloyd Admission and Anticipated Discharge Date Admission Date: December 06, 2023 Subjective Comfortable,Denies acute concerns, feels rash better. Good UOP with present diuretic combination Review of Systems 2 Review of Systems: All systems reviewed & are unremarkable except as noted in HPI & below Results & Data Vital Signs (Past 12 Hours) Vital Signs Temp Pulse Pulse Resp BP Pulse Ox O2 Del Method 12/12/23 11:23 36.7 C 62 18 127/81 94 Room Air 12/12/23 08:24 36.6 C 66 20 135/73 95 Room Air 12/12/23 07:48 64 12/12/23 07:43 Room Air 12/12/23 07:19 64 17 93 Room Air 12/12/23 04:06 Room Air 12/12/23 03:30 36.6 C 69 18 130/81 94 Room Air FiO2 12/12/23 11:23 12/12/23 08:24 12/12/23 07:48 12/12/23 07:43 12/12/23 07:19 21 12/12/23 04:06 12/12/23 03:30 Laboratory Results 12/12/23 04:33 12/12/23 04:33
[2023-12-12 13:41] LABS: Magnesium 1.6 mg/dl (1.7-2.4); Phosphorus 2.9 mg/dl (2.5-4.9); Potassium 3.3 mmol/L (3.5-5.1)
--- NOTE | 2023-12-12 16:04 | Hospitalist Progress Note ---
Date of Service December 12, 2023 Assessment & Plan (1) Syncope: (2) Hypokalemia: (3) Shingles rash: (4) [facility] use of [facility]: (5) COPD (chronic obstructive pulmonary disease): (6) Chronic indwelling Fontaine catheter: (7) Abnormal finding on urinalysis: (8) (HFpEF) heart failure with preserved ejection fraction: (9) Depression with anxiety: (10) BPH (benign prostatic hyperplasia): Plan 53yo M with PMH significant for chronic diastolic heart failure, history CAD/STEMI, history subdural hematoma/subarachnoid hemorrhage, hypertension, hyperlipidemia, COPD, recurrent PE on Coumadin, DM 2,recurrent UTIs secondary to BPH/chronic urinary retention indwelling Fontaine catheter, chronic anemia, chronic pain on buprenorphine, hx MRSA/VRE admitted for multiple reported syncopal episodes and concern for new rash. Was recently admitted to our service from 11/22- for MRSA UTI and discharged on linezolid course, which he reports completing. PT IS STABLE FOR DISCHARGE BUT REFUSING TO BE DISCHARGED. REQUESTING TO APPEAL DISCHARGE TODAY. LATER STATES HE JUST WANTS TO WORK WITH PT AND WILL LEAVE TOMORROW. Per previous provider with addendum: Urinary tract infection Chronic urinary retention indwelling Fontaine catheter Fontaine catheter associated UTI POA UA abnormal, chronic fontaine in place Afebrile but reports low grade temps at home this past week Recent MRSA UTI Urine culture growing Klebsiella Fontaine changed on 12/07/23 Currently on ceftriaxone, transition to po on discharge Hypokalemia Initial K 2.6 in ED K was 3 despite aggressive repletion Had increased home po KCL from 20mEq TID to 40mEq TID and stopped metolazone Nephrology consulted appreciate recs Nephrology increased aldactone to 50mg daily, torsemide to 100mg daily and changed mag oxide to 128mg BID Nephro recommends not to continue metolazone going forward Currently wnl Hypomag-replete as needed. Also on scheduled supplements. Syncopal episode History of events, likely vasovagal in setting of bowel movement Hypokalemia may be contributing to this Head CT did not show any acute abnormalities Admitting EKG unchanged from previous Has loop recorder, follows with cardiology Shingles Lesions noted on subscapular region of R back, R axilla within past 72 hours, suspected Shingles rash Started on PO valacyclovir, continue 1g Q8H dosing for 7-14 days Monitor for dissemination Contact precautions Improving Intertrigo Oral thrush Pt started on miconazole powder for intertrigo On nystatin po for thrush Recurrent PE on coumadin INR 2.5 on admission Gave extra dose of warfarin on 12/08/23 for INR of 1.7 Continues to downtrend, started on Lovenox bridge Monitor INR Needs follow-up with Coumadin clinic on discharge COPD Ongoing tobacco use disorder Currently no signs of exacerbation Continue home inhalers Chronic pain syndrome On Suboxone Chronic diastolic CHF Monitor volume status Continue home diuretics On low sodium diet, continue DM II A1c 8.6 Hold home agents Glycemic pharm on board ISS while inpatient BSG AC HS Hyperlipidemia Continue lipitor BPH Continue Proscar, Flomax Morbid obesity BMI 55 - patient has been losing weight, reports feeling better overall DVT Ppx: coumadin Code status: FULL Dispo: PT/OT Admission and Anticipated Discharge Date Admission Date: December 06, 2023 Subjective States he was "not feeling good" Pt previously stated that he could not get a ride yesterday when he was stable for discharge. Stated that he had a ride today up until he was seen today by this provider. Within minutes of being seen, notified by CM that pt wished to appeal his discharge. Known Hx of doing this. Pt concerned about PT though noted that he was seen by them in Sep without concerns. Review of Systems Review of Systems: All systems reviewed & are unremarkable except as noted in Subjective Physical Exam Physical Exam: General: Alert, oriented. No acute distress Skin: intertigo and groin erythema in the folds noted Psych: Appropriate mood and affect Neuro: No gross deficits HEENT: NC/AT, PERRLA, EOMI, oropharynx moist. Chest: Nontender to palpation. CV: RRR, Normal s1, s2. No murmurs appreciated Resp: Breath sounds decreased bilaterally, no increased effort of breathing. Abdomen: Soft, nontender, nondistended. No guarding. No organomegaly appreciated. Extremities: edema in lower extremities bilaterally. Results & Data Results & Data Vital Signs (Past 12 Hours) Vital Signs Temp Pulse Pulse Pulse Resp BP Pulse Ox 12/12/23 15:37 36.6 C 71 16 134/78 93 12/12/23 11:23 36.7 C 62 18 127/81 94 12/12/23 08:24 36.6 C 66 20 135/73 95 12/12/23 07:48 64 12/12/23 07:43 12/12/23 07:19 64 17 93 12/12/23 04:06 O2 Del Method FiO2 12/12/23 15:37 Room Air 12/12/23 11:23 Room Air 12/12/23 08:24 Room Air 12/12/23 07:48 12/12/23 07:43 Room Air 12/12/23 07:19 Room Air 21 12/12/23 04:06 Room Air (5) COPD (chronic obstructive pulmonary disease) COPD type: unspecified COPD Qualified Code(s): J44.9 - Chronic obstructive pulmonary disease, unspecified
[2023-12-12] MEDS: MAGNESIUM CHLORIDE W/CALCIUM 64MG DELAYED REL TAB PO ONE (16:34)
[2023-12-12] MEDS: ACETAMINOPHEN 500 MG TAB PO PRN (21:52)
[2023-12-13 06:06] LABS: Basophils # (auto) 0.04 K/uL (0.00-0.20); Basophils % (auto) 0.4 %; Eosinophils # (auto) 0.49 K/uL (0.00-0.50); Eosinophils % (auto) 4.9 %; Hematocrit (blood only) 38.6 % (42.0-52.0); Hemoglobin 12.3 g/dl (14.0-18.0); Immature Granulocytes # (auto) 0.04 K/uL (0.01-0.20); Immature Granulocytes % (auto) 0.4 %; Lymphocytes # (auto) 2.49 K/uL (1.20-3.40); Lymphocytes % (auto) 24.7 %; Mean Corpuscular Hemoglobin 25.8 pg (25.0-34.0); Mean Corpuscular Hgb Conc 31.9 g/dL (32.0-36.0); Mean Corpuscular Volume 81.1 fL (80.0-100.0); Mean Platelet Volume 10.5 fL (9.4-12.4); Monocytes # (auto) 0.67 K/uL (0.11-0.59); Monocytes % (auto) 6.7 %; Neutrophils # (auto) 6.34 K/uL (1.40-6.50); Neutrophils % (auto) 62.9 %; Platelet Count 160 K/uL (130-400); RDW Coefficient of Variation 19.6 % (11.5-14.5); RDW Standard Deviation 54.4 fL (36.4-46.3); Red Blood Count 4.76 M/uL (4.70-6.10); White Blood Count 10.07 K/ul (4.8-10.8)
[2023-12-13 06:17] LABS: Albumin Globulin Ratio 1.2 (0.9-2); Albumin Level 3.7 gm/dl (3.4-5.0); BUN Creatinine Ratio 30.6 (10-20); Bilirubin,Total 0.5 mg/dl (0.2-1.0); Calcium 9.1 mg/dl (8.6-10.3); Creatinine Clr Calc Pharmacy 130.6 ml/min; Est GFR (African American) 87.4 ml/min; Est GFR (Non-African American) 75.4 ml/min; Magnesium 1.8 mg/dl (1.7-2.4); Phosphorus 2.6 mg/dl (2.5-4.9); Potassium 3.5 mmol/L (3.5-5.1); Total Protein 6.7 gm/dl (6.0-8.3)
[2023-12-13 06:22] LABS: INR 2.5 (0.9-1.1); Prothrombin Time 26.1 Seconds (9.0-12.0)
[2023-12-13] MEDS: LANTUS PER UNIT CHARGE SC SCH (08:55)
--- NOTE | 2023-12-13 09:20 | Discharge Summary ---
Discharge Summary Date of Service December 13, 2023 Notes For Next Care Provider Please ensure follow up of patient's loop recorder for episodes of syncope. Please ensure follow up with Neurology and Cardiology. Please ensure close follow up with Nephrology Per Nephrology, STOP metalozone forever. Please continue to closely monitor electrolytes after discharge with repeat BMP in the next 3-5 days Medication Changes From Visit cefdinir 300mg BID x 3 more days miconazole powder for 11 days Nystatin suspension for 2 days Valtrex for 1 more day Per nephrology: STOP METALOZONE FOREVER. Torsemide increased to 100mg daily with KCl 40mg TID Spironolactone increased to 50mg daily Slow-Mag 128mg BID Admission HPI Per Admitting Provider This is a 53yo M with PMH significant for chronic diastolic heart failure, history CAD/STEMI, history subdural hematoma/subarachnoid hemorrhage, hypertension, hyperlipidemia, COPD, recurrent PE on Coumadin, DM 2,recurrent UTIs secondary to BPH/chronic urinary retention indwelling Fontaine catheter, chronic anemia, chronic pain on buprenorphine, hx MRSA/VRE admitted for multiple reported syncopal episodes and concern for new rash. Was recently admitted to our service from for MRSA UTI and discharged on linezolid course, which he reports completing. Has felt rundown and "foggy" since discharge. Reports multiple days of a low-grade fever of 99 F. Noticed spots on his back 2 days ago after feeling a tingling sensation there. This morning, noted new rash under his right armpit. Denies that it is present anywhere else. Also reports multiple syncopal episodes over the past few days at home. States he had sudden loss of consciousness when ambulating from kitchen to the living room and then another time living room to kitchen. Denies any preceding symptoms or warning and came to within seconds, per patient. Two nights ago, patient was sitting on the toilet and had an episode of diarrhea with a near syncopal episode during that time and felt "shaky". Denies yeimi syncope for that event. Presented to the ED today due to concern that new rash was a spread of MRSA. Also anxious about why he is having syncopal episodes. Grandchild that lives with him had confirmed strep throat today. Patient states his throat started to hurt this morning. Denies any headache or difficulty breathing. Has recently lost weight and is reportedly now under 400 pounds and denies any swelling in his extremities. Reports taking medication as prescribed. Patient has historically followed with Dr. Askew but has not been to an in- person appointment with him since 2020. Due to transportation issues, discussed the possobility of transition to the [facility] primary care office and was due to establish care with Dr. Mc today. Admission Exam Per Admitting Provider General Appearance: WD/WN, vitals as above, NAD, sitting up in bed, morbidly obese, pleasant, conversing easily Head: normocephalic, atraumatic Eyes: normal inspection, PERRL, conjunctivae normal, anicteric sclerae ENT: external ear and nose normal, dry mucous membranes of oropharynx Neck: normal visual inspection, trachea midline, no thyromegaly Respiratory: normal respiratory effort, lungs clear to auscultation, no wheeze, rales, rhonchi. No accessory muscle use Cardiovascular: regular rate, rhythm, no murmur, normal peripheral pulses, trace BLE edema. Vessels: no JVD Chest: normal inspection of chest Abdomen/GI: normal bowel sounds, soft, nontender, no hepatosplenomegaly : Fontaine draining yellow urine Extremities/Musculoskeletal: no cyanosis or clubbing, extremities motor strength 5/5 Neurologic: PERRL, EOMI, accommodation nl, no face palsy, no dysarthria, CN's II-XI intact bilaterally and moves all extremities Psychiatric: A+Ox3, euthymic affect Skin: normal color, warm/dry + clustered lesions on an erythematous base with crusting noted in R axillary area as well as R subscapular area, no purulence or blistering noted Principal Dx & Hospital Course #1 = Principal Diagnosis (1) Syncope: (2) Hypokalemia: (3) Shingles rash: (4) Current use of intermediate anticoagulation: (5) COPD (chronic obstructive pulmonary disease): (6) Chronic indwelling Fontaine catheter: (7) Abnormal finding on urinalysis: (8) (HFpEF) heart failure with preserved ejection fraction: (9) Depression with anxiety: (10) BPH (benign prostatic hyperplasia): Plan 53yo M with PMH significant for chronic diastolic heart failure, history CAD/STEMI, history subdural hematoma/subarachnoid hemorrhage, hypertension, hyperlipidemia, COPD, recurrent PE on Coumadin, DM 2,recurrent UTIs secondary to BPH/chronic urinary retention indwelling Fontaine catheter, chronic anemia, chronic pain on buprenorphine, hx MRSA/VRE admitted for multiple reported syncopal episodes and concern for new rash. Was recently admitted to our service from 11/22- for MRSA UTI and discharged on linezolid course, which he reports completing. Per previous provider with addendum: Urinary tract infection Chronic urinary retention indwelling Fontaine catheter Fontaine catheter associated UTI POA UA abnormal, chronic fontaine in place Afebrile but reports low grade temps at home this past week Recent MRSA UTI Urine culture growing Klebsiella Fontaine changed on 12/07/23 Treated with IV Rocephin for 7 days, discharged on po cefdinir 300mg BID x 3 more days. PCP followup, consider urology. Needs frequent fontaine changes. Hypokalemia Lower extremity Edema Initial K 2.6 in ED K was 3 despite aggressive repletion, low with use of diuretics Had increased home po KCL from 20mEq TID to 40mEq TID and stopped metolazone Nephrology consulted appreciate recs Nephrology increased aldactone to 50mg daily, torsemide to 100mg daily and changed mag oxide to 128mg BID Nephro recommends discontinuation of metolazone forever Discharged with the following regimen: -Aldactone 50mg daily -torsemide 100mg daily -KCl 40mEq TID -STOP METALOZONE -Slow Mag 128mg BID Nephrology and PCP followup after discharge Please continue to closely monitor electrolytes after discharge with repeat BMP in the next 3-5 days Hypomagnesemia repleted as needed Slow Mag 128mg BID Please continue to closely monitor electrolytes after discharge with repeat BMP in the next 3-5 days Syncopal episode History of events, likely vasovagal in setting of bowel movement Hypokalemia may be contributing to this Head CT did not show any acute abnormalities Admitting EKG unchanged from previous Has loop recorder, follows with cardiology Please ensure follow up of patient's loop recorder for episodes of syncope. Please ensure follow up with Neurology and Cardiology. Shingles Lesions noted on subscapular region of R back, R axilla within past 72 hours, suspected Shingles rash Started on PO valacyclovir, continue 1g Q8H dosing for 7 days Monitor for dissemination Contact precautions Improving, discharged with 1 more day of Valtrex PCP follow up. Intertrigo Oral thrush Pt started on miconazole powder for intertrigo On nystatin po for thrush Discharged with miconazole cream for 11 more days of intertrigo treatment. Discharged with nysatatin for 2 more days. Recurrent PE on coumadin INR 2.5 on admission Gave extra dose of warfarin on 12/08/23 for INR of 1.7 Continued to downtrend, started on Lovenox bridge INR 2.5 on discharge, no need for lovenox brdige Needs follow-up with Coumadin clinic on discharge COPD Ongoing tobacco use disorder Currently no signs of exacerbation Continue home inhalers Chronic pain syndrome On Suboxone Chronic diastolic CHF Monitor volume status Discharged with the following regimen: -Aldactone 50mg daily -torsemide 100mg daily -KCl 40mEq TID -STOP METALOZONE -Slow Mag 128mg BID Nephrology and PCP followup after discharge On low sodium diet, continue Cardiology follow up as well. DM II A1c 8.6 Hold home agents Glycemic pharm on board ISS while inpatient BSG AC HS Continue home regimen Hyperlipidemia Continue lipitor BPH Continue Proscar, Flomax Morbid obesity BMI 55 - patient has been losing weight, reports feeling better overall PCP followup Discharge Exam General: Alert, oriented. No acute distress Skin: intertigo and groin erythema in the folds noted Psych: Irritated mood and affect on discharge Neuro: No gross deficits HEENT: NC/AT, PERRLA, EOMI, oropharynx moist. Chest: Nontender to palpation. CV: RRR, Normal s1, s2. No murmurs appreciated Resp: Breath sounds decreased bilaterally, no increased effort of breathing. Abdomen: Soft, nontender, nondistended. No guarding. No organomegaly appreciated. Extremities: ++++ edema in lower extremities bilaterally. Updated Medication List Medication Instructions Recorded Confirmed Type aspirin 81 mg tablet,delayed 81 mg PO QAM 11/17/18 12/06/23 History release (Ecotrin Low Strength) nitroglycerin 0.4 mg sublingual 0.4 mg sublingual DIRECTED PRN 12/09/18 12/06/23 History tablet (Nitrostat) CHEST PAIN nystatin 100,000 unit/gram topical 1 applic topical TID PRN Skin 12/09/18 12/06/23 History powder Irritation polyethylene glycol 3350 17 gram 17 g PO QAM PRN Constipation 12/09/18 12/06/23 History oral powder packet (Miralax) finasteride 5 mg tablet 5 mg PO QAM 03/03/19 12/06/23 History docusate sodium 100 mg capsule 100 mg PO BID PRN Constipation 08/11/19 12/06/23 History folic acid 1 mg tablet 1 mg PO QAM 12/07/19 12/06/23 History sennosides 8.6 mg tablet (senna) 8.6 mg PO DAILY PRN Constipation 12/07/19 12/06/23 History duloxetine 60 mg capsule,delayed 60 mg PO DAILY 07/05/20 12/06/23 History release famotidine 20 mg tablet 20 mg PO DAILY 07/05/20 12/06/23 History glipizide 10 mg tablet 10 mg PO BID 01/12/21 12/06/23 History Lactobacillus acidoph-L.bulgaricus 1 tab PO TID #30 tabs 05/09/21 12/06/23 Rx 1 million cell chewable tablet (Lactinex) ferrous sulfate 325 mg (65 mg 325 mg PO QAM 10/24/21 12/06/23 History iron) tablet hydroxyzine HCl 25 mg tablet 25 mg PO QID PRN Anxiety 10/24/21 12/06/23 History urea 20 % topical cream 1 applic topical BID Dry Areas on 10/24/21 12/06/23 History (Ureacin-20) Soles and Legs insulin aspart U-100 100 unit/mL 0 sliding scale dose subcut TIDM 04/07/23 12/06/23 History (3 mL) subcutaneous pen (Novolog FlexPen U-100 Insulin aspart) buprenorphine HCl 8 mg sublingual See Rx Instructions .Route .COMPLEX 05/04/23 12/06/23 History tablet fluticasone propionate 93 2 spray intranasal DAILY 08/22/23 12/06/23 History mcg/actuation breath activated aerosol ipratropium 0.5 mg-albuterol 3 mg 3 ml inhalation TID 08/22/23 12/06/23 History (2.5 mg base)/3 mL nebulization soln atorvastatin 80 mg tablet 80 mg PO QAM #30 tabs 09/26/23 12/06/23 Rx ergocalciferol (vitamin D2) 1,250 50,000 unit PO Q7D #10 caps 09/26/23 12/06/23 Rx mcg (50,000 unit) capsule magnesium oxide 400 mg (241.3 mg 400 mg PO BID #60 tabs 09/26/23 12/06/23 Rx magnesium) tablet metoprolol succinate 50 mg 75 mg (1.5 x 50 mg) PO BID 30 days 09/26/23 12/06/23 Rx tablet,extended release 24 hr #180 tabs tamsulosin 0.4 mg capsule (Flomax) 0.8 mg (2 x 0.4 mg) PO QAM #180 09/26/23 12/06/23 Rx caps isosorbide dinitrate 30 mg tablet 30 mg PO DAILY #30 tabs 10/11/23 12/06/23 Rx warfarin 2 mg tablet See Rx Instructions .Route .COMPLEX 11/22/23 12/06/23 History albuterol sulfate 90 mcg/actuation 2 puff inhalation Q4 PRN Dyspnea 11/26/23 12/06/23 Rx aerosol inhaler 30 days #1 inh budesonide 0.5 mg/2 mL suspension 0.5 mg (2 mL) inhalation Q12H 30 11/26/23 12/06/23 Rx for nebulization days #60 mL cyclobenzaprine 10 mg tablet 10 mg PO BID PRN Muscle Spasm #15 11/26/23 12/06/23 Rx tabs fluticasone 250 mcg-salmeterol 50 1 inh inhalation BID 30 days #1 ea 11/26/23 12/06/23 Rx mcg/dose blistr powdr for inhalation (Advair Diskus) gabapentin 800 mg tablet 800 mg PO TID #42 tabs 11/26/23 12/06/23 Rx insulin glargine 100 unit/mL 50 unit (0.5 mL) SC HS 30 days #15 11/26/23 12/06/23 Rx subcutaneous solution (Lantus mL U-100 Insulin) omeprazole 20 mg capsule,delayed 20 mg PO DAILYBB 30 days #30 caps 11/26/23 12/06/23 Rx release ondansetron HCl 4 mg tablet 4 mg PO Q8H PRN NAUSEA/VOMITING 11/26/23 12/06/23 Rx #12 tabs cefdinir 300 mg capsule 300 mg PO BID #6 caps 12/13/23 Rx magnesium chloride 64 mg 128 mg (2 x 64 mg) PO BID #120 tabs 12/13/23 Rx (magnesium chloride) tablet,delayed release (Mag 64) miconazole nitrate 2 % topical 1 applic topical BID #85 grams 12/13/23 Rx powder nystatin 100,000 unit/mL oral 5 ml PO QID #60 mL 12/13/23 Rx suspension potassium chloride 20 mEq 40 meq (2 x 20 mEq) PO TID #180 12/13/23 Rx tablet,extended release(part/cryst) tabs spironolactone 25 mg tablet 50 mg (2 x 25 mg) PO QAM #60 tabs 12/13/23 Rx torsemide 100 mg tablet 100 mg PO DAILY #30 tabs 12/13/23 Rx valacyclovir 500 mg tablet 1,000 mg (2 x 500 mg) PO Q8H #6 12/13/23 Rx tabs Hospital Stay Data Consultations 12/06/23 13:19 ED Decision to Admit Stat 12/09/23 09:08 Consult Nephrology Routine Diagnostic Imagining Performed 12/06/23 14:[address] [CT head/brain wo con] Routine Chest X-Ray 12/06/23 14:41 XR chest 1V portable CLINICAL HISTORY: admission, syncopa TECHNIQUE: Single frontal radiograph of the chest was obtained. Comparison: Comparison is made to chest radiograph 11/22/2023 FINDINGS: Implanted device is seen. Exam is limited by underpenetration. The cardiomedia stinal silhouette is stable. The lungs are clear. Blunting of the bilateral costophrenic angles is suggested. IMPRESSION: Possible small bilateral pleural effusions. Otherwise unremarkable. ACT 112: Negative or not required by law. Electronically signed by: Armand Tobar M.D. 12/06/2023 3:[address] 12/06/23 14:[address] DOSE: 1100.35 mGy.cm HISTORY: syncope and collapse, on AC TECHNIQUE: Multiaxial CT images of the head were performed without the use of intravenous contrast. Automated exposure control was utilized for this study. A dose lowering technique was utilized adhering to the principles of ALARA. Comparison: Head CT 09/29/2023. Findings: Mild mucosal thickening again noted within the right paranasal sinuses. The mastoid air cells are clear. The calvarium and skull base are intact. The ventricles and sulci are within normal limits. There is no mass, hematoma, midline shift, or acute infarct. Impression: No acute intracranial abnormality. ACT 112: Negative or not required by law. Electronically signed by: Vidal Keller M.D. 12/06/2023 3:28 PM Pending Results Patient Have Any Pending Studies at Discharge: No Discharge Instructions Given to Patient (Per Discharging Provider) Mr. Milner, You were admitted with a UTI and concerning rash. We are discharging you home with 3 more days of antibiotics for your urinary tract infection. Please take as prescribed. We treated your rash while you were here and we are discharging you home with one more day of valacyclovir. You also had intertrigo and thrush that we treated with topical miconazole and oral nystatin. Continue the miconazole powder for an additional 11 days and the nystatin for 2 more days. Nephrology also changed your home diuretics: they recommended that you STOP Metalaozone forever. They increased your torsemide dose to 100mg daily and the Aldactone to 50mg daily. They also increased the dose of your potassium and magnesium supplements. 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 It was a pleasure taking care of you while you were here. Total Time Total Time Spent Total Time Spent (In Minutes): > 30 minutes
== END 2023-12-13 09:48 | disposition home or self-care (01) | DRG 699 ==
LOC: ED 10:28 → EDINP 13:38 → SUATTDRO 13:38 → 4W 14:19 → 2W 12-10 18:18

== ENCOUNTER 2023-12-25 20:11 | Inpatient (IN) ==
--- OUTSIDE RECORDS SUMMARY | 2023-12-25 20:19 | External Medical Summary | Summary of Care ---
Author Name Unknown Organization [facility] Address [address] [place] [address] Phone [phone] Care Team Providers Care Court Of Appeals Judge Name Role Phone Roberto Askew MD Primary Care Provider + Reason for Visit * Reason Onset Date Comments Appointment 12/20/2023 Encounter Details Date Type Department Care Team ([facility] st Contact Info) Description 12/20/2023 Telephone Nephrology, [address] [address] Demetria Arizmendi MD [address] [place] [id number] Appointment Allergies Active Allergy Reactions Criticality [...] as of this encounter (statuses as of 12/22/2023) Medications Medication Sig Dispensed Refills Start Date [...] day as needed. 0 Active nystatin (NYSTOP) 199654 UNIT/GM powderIndications:Cu taneous candidiasis Apply topically to [...] Oral TabletIndications:Co ronary artery disease involving [place] coronary artery of [place] heart without angina pectoris Take by mouth [...] Oral TabletIndications:Co ronary artery disease involving [place] coronary artery of [place] heart without angina pectoris Take 1 Tablet by mouth in the morning. In the morning.. 90 Tablet 1 04/05/2023 Active Metoprolol Succinate ER 50 MG Oral Tablet Extended Release 24 Hour (toPROL XL)Indications:Coron uziel artery disease involving [place] coronary artery of [place] heart without angina pectoris TAKE 1 & [...] ([facility]) Use 3 times daily as directed 300 Strip 3 08/31/2023 Active TRUEplus Lancets 33GIndications:Type 2 diabetes mellitus with hemoglobin A1c goal of less than 8.0% ([facility]) Use 3 times daily as directed [...] as of this encounter (statuses as of 12/22/2023) Active Problems Problem Noted Date Diagnosed Date [...] hemorrhage 10/04/2020 Coronary artery disease invo lving [place] heart without angina pectoris 10/04/2020 COPD, group [...] as of this encounter (statuses as of 12/22/2023) Resolved Problems Problem Noted Date Diagnosed Date [...] Calculus of kidney 08/20/2015 8 Overview: right, [place] CT Vitamin D deficiency 01/31/2015 018 Body [...] as of this encounter (statuses as of 12/22/2023) Immunizations Name Administration Dates Next Due COVID-19 mRNA, LNP-s, No Pre serve, 2-Dose Series ([employer]) 01/02/2021,12/05/2020 DTP Vaccine 07/19/2017,04/03/2014 Hepatitis B, 20+ [...] Telephone Encounter - Donna Winston OSA - 12/22/2023 8:38 AM EDT 12/22/23 Called patient, left message. Trying to get patient scheduled with Nephrology for appointment. Patient needs a hospital discharge appointment scheduled. Please offer first available. My G not active. * Telephone Encounter - Donna Winston OSA - 12/20/2023 2:23 PM EDT 12/20/23 Called patient, left message. Trying to get patient scheduled with Nephrology for appointment. Patient needs a hospital discharge appointment scheduled. Please offer first available. My G not active. documented in this encounter Plan of Treatment Upcoming Encounters Date Type Department Care Team (Late st Contact Info) Description 12/30/2023 7:00 AM EDT Laboratory Lab Mobile Phlebotomy [facility] [address] [place] [id number] [facility], [facility] Mobile Home Draw [phone] [place] [phone] 12/31/2023 6:00 AM EDT Anticoagulation Pharmacy Call Center [phone] [place] [phone] Ccp, [facility] [phone] [facility] [place] [address] Health Maintenance Due Date Last Done Comments [...] 02/03/2020 LUNG CANCER SCREENING - USE SMARTSET 02166 2020 02/10/2019, 07/19/2017, 05/09/2017, Additional history exists [...] COVID-19 Vaccine ( season) 2023 01/02/2021, 12/05/2020 Colonoscopy 12/09/2023 12/08/2013, 07/26/2013 Colorectal Cancer Screening 12/09/2023 Influenza Vaccine (FLU shot) (Season Ended) 2024 08/26/2013 GFR 06/14/2024 06/14/2023, 05/21, 12/17/2022, Additional history [...] this encounter Medical Devices Implanted Type Area Shift Supervisor Rn Device Identifier Shelf Expiration Date Model / Serial / Lot Tube Flex 3.0x2.5 [id number] - [id number] Implanted:Qty: 1 on 12/07/2014 by Juancarlos Trinidad MD at [facility] Left: Finger [employer] : ORTHOPAEDICS 11/18/2015 [id number] / / [id number] documented as of this encounter Advance Directives [...] the patient have Health Care Power of Photographer Assistant? No Healthcare Agents on File Name Relationship Healthcare Agent Relationship Communication Estrella Seth Other - (no specific identity) Health Care Power of Photographer Assistant Care Teams Court Of Appeals Judge Relationship Specialty Start Date End Date Roberto Askew MD [address] [place] [address] PCP - General Internal Medicine 04/10/20 documented as of this encounter
--- OUTSIDE RECORDS SUMMARY | 2023-12-25 20:19 | External Medical Summary | Summary of Care ---
Author Name Unknown Organization [facility] Address [address] [place] [address] Phone [phone] Care Team Providers Care Blasting Cap Assembler Name Role Phone Roberto Askew MD Primary Care Provider + Reason for Visit * Reason Onset Date Comments Hospital Follow-Up 12/14/2023 FARIDA Encounter Details Date Type Department Care Team (Late st Contact Info) Description 12/14/2023 Telephone Ancillary [facility] [address] [place] [address] Kimmy Hill, ALEXANDER Hospital Follow-Up (FARIDA) Allergies [...] as of this encounter (statuses as of 12/16/2023) Medications Medication Sig Dispensed Refills Start Date [...] day as needed. 0 Active nystatin (NYSTOP) 943961 UNIT/GM powderIndications:Cu taneous candidiasis Apply topically to [...] MG Oral TabletIndications:Co ronary artery disease involving eek coronary artery of [...] MG Oral TabletIndications:Co ronary artery disease involving eek coronary artery of eek heart without angina pectoris Take 1 Tablet by mouth in the morning. In the morning.. 90 Tablet 1 04/05/2023 Active Metoprolol Succinate ER 50 MG Oral Tablet Extended Release 24 Hour (toPROL XL)Indications:Coron uziel artery disease involving eek coronary artery of [...] 8.0% ([facility]) Use 3 times daily as [...] as of this encounter (statuses as of 12/16/2023) Active Problems Problem Noted Date Diagnosed Date [...] hemorrhage 10/04/2020 Coronary artery disease invo lving eek heart without angina pectoris 10/04/2020 COPD, [...] as of this encounter (statuses as of 12/16/2023) Resolved Problems Problem Noted Date Diagnosed Date [...] Calculus of kidney 08/20/2015 8 Overview: right, [place] CT Vitamin D deficiency 01/31/2015 018 Body [...] as of this encounter (statuses as of 12/16/2023) Immunizations Name Administration Dates Next Due COVID-19 mRNA, LNP-s, No Pre serve, 2-Dose Series ([employer]) 01/02/2021,12/05/2020 DTP Vaccine 07/19/2017,04/03/2014 Hepatitis B, [...] Telephone Encounter - Kimmy Hill RN - 12/15/2023 10:48 AM EDT Transitions of Care Note Reason for Referral:Recent Admission Phone visit for follow up: FARIDA # 2 Left message requesting patient return call to discuss hospitalization, medication and follow up appointments. Admitted to: [facility], Date: 12/05 Discharged to: Home Self Care, Date: 12/12 Diagnosis driving hospitalization: Syncope Shingles UTI * Telephone Encounter - Kimmy Hill RN - 12/14/2023 2:51 PM EDT Transitions of Care Note Reason for Referral:Recent Admission Phone visit for follow up: FARIDA # 1 Called pts cell phone number and number was busy, called home number and person who answered told me there was no Bill there. Will attempt to call cell phone again tomorrow. Admitted to: [facility], Date: 12/05 Discharged to: Home Self Care, Date: 12/12 Diagnosis driving hospitalization: Syncope Shingles documented in this encounter Plan of Treatment Upcoming Encounters Date Type Department Care Team (Late st Contact Info) Description 12/16/2023 11:20 AM EDT Office Visit [facility] [address] [place] [address] Kehinde Mc MD [address], [place] [id number] 12/17/2023 6:00 AM EDT Anticoagulation Pharmacy Call Center [address] [place] [address] [facility] [address] [place] [address] Health Maintenance Due Date Last Done Comments DISCUSS TOBACCO CESSATION (REFER TO SMARTSET #0820) 1970 HIV Screening 1985 O2 ASSESSMENT COMPLETED IN PAST YEAR FOR COPD 1988 Pneumococcal Vaccine: Pediatrics (0 to 5 Years) and At-Risk Patients (6 to 64 Years) (2 of 2 - PCV) 05/22/2010 05/22/2009 Cologuard 2015 Fecal Occult Blood Test 2015 Sigmoidoscopy 2015 *ADVANCE DIRECTIVE NOT ON FILE 02/03/2020 LUNG CANCER SCREENING - USE SMARTSET [id number] 2020 02/10/2019, 07/19/2017, 05/09/2017, Additional history exists [...] this encounter Medical Devices Implanted Type Area Lab Asst Device Identifier Shelf Expiration Date Model / Serial / Lot Tube Flex 3.0x2.5 [id number] - [id number] Implanted:Qty: 1 on 12/07/2014 by Juancarlos Trinidad MD at [facility] Left: Finger [employer] : ORTHOPAEDICS 11/18/2015 [id number] / / [id number] documented as of this encounter Advance Directives [...] the patient have Health Care Power of Gastrointestinal Technician? No Healthcare Agents on File Name Relationship Healthcare Agent Relationship Communication Estrella Seth Other - (no specific identity) Health Care Power of Gastrointestinal Technician Care Teams Blasting Cap Assembler Relationship Specialty Start Date End Date Roberto Askew MD [address] [place] [address], [place] [address] PCP - General Internal Medicine 04/10/20 documented as of this encounter
--- OUTSIDE RECORDS SUMMARY | 2023-12-25 20:19 | External Medical Summary | Summary of Care ---
Author Name Unknown Organization [facility] Address [address] [place] [address] Phone [phone] Care Team Providers Care Heel Slugger Name Role Phone Roberto Askew MD Primary Care Provider + Reason for Visit * Reason Onset Date Comments Appointment 10/14/2023 Encounter Details Date Type Department Care Team ([facility] st Contact Info) Description 10/14/2023 Telephone Nephrology, [address] [address] Demetria Arizmendi MD [address] [place] [address] Appointment Allergies Active Allergy Reactions Criticality [...] as of this encounter (statuses as of 12/20/2023) Medications Medication Sig Dispensed Refills Start Date [...] day as needed. 0 Active nystatin (NYSTOP) 633167 UNIT/GM powderIndications:Cu taneous candidiasis Apply topically to [...] MG Oral TabletIndications:Co ronary artery disease involving [place] coronary [...] MG Oral TabletIndications:Co ronary artery disease involving [place] coronary artery of [place] heart without angina pectoris Take 1 Tablet by mouth in the morning. In the morning.. 90 Tablet 1 3 Active Metoprolol Succinate ER 50 MG Oral Tablet Extended Release 24 Hour (toPROL XL)Indications:Coron uziel artery disease involving [place] coronary [...] as of this encounter (statuses as of 12/20/2023) Active Problems Problem Noted Date Diagnosed Date [...] hemorrhage 10/04/2020 Coronary artery disease invo lving [place] heart without angina pectoris [...] as of this encounter (statuses as of 12/20/2023) Resolved Problems Problem Noted Date Diagnosed Date [...] Calculus of kidney 08/20/2015 8 Overview: right, [place] CT Vitamin D deficiency 01/31/2015 018 Body [...] as of this encounter (statuses as of 12/20/2023) Immunizations Name Administration Dates Next Due COVID-19 mRNA, LNP-s, No Pre serve, 2-Dose Series ([employer]) 01/02/2021,12/05/2020 DTP Vaccine 07/19/2017,04/03/2014 Hepatitis B, 20+ [...] AM EDT Laboratory Lab Mobile Phlebotomy [facility] [address] [facility] [place] [address] Mvmg, Gml Mobile Home Draw [address] [facility] [place] [address] 12/31/2023 6:00 AM EDT Anticoagulation Pharmacy Call Center [address] [facility] [place] [address] Ccp, [facility] [address] [facility] [place] [address] Health Maintenance Due Date Last Done Comments [...] 02/03/2020 LUNG CANCER SCREENING - USE SMARTSET [id number] 2020 02/10/2019, 07/19/2017, 05/09/2017, Additional history exists [...] this encounter Medical Devices Implanted Type Area Shot Hole Driller Device Identifier Shelf Expiration Date Model / Serial / Lot Tube Flex 3.0x2.5 [id number] - [id number] Implanted:Qty: 1 on 12/07/2014 by Juancarlos Trinidad MD at [facility] Left: Finger [employer] : ORTHOPAEDICS 11/18/2015 [id number] / / [id number] documented as of this encounter Advance Directives [...] the patient have Health Care Power of Dining Chair Seat Cushion Trimmer? No Healthcare Agents on File Name Relationship Healthcare Agent Relationship Communication Estrella Seth Other - (no specific identity) Health Care Power of Dining Chair Seat Cushion Trimmer Care Teams Heel Slugger Relationship Specialty Start Date End Date Roberto Askew MD [address] [place] [address] PCP - General Internal Medicine 04/10/20 documented as of this encounter
--- OUTSIDE RECORDS SUMMARY | 2023-12-25 20:19 | External Medical Summary | Summary of Care ---
Author Name Unknown Organization [facility] Address [address] [place] [address] Phone [phone] Care Team Providers Care Hop Strainer Name Role Phone Roberto Askew MD Primary Care Provider + Reason for Visit * Reason Onset Date Comments Appointment 12/20/2023 Encounter Details Date Type Department Care Team ([facility] st Contact Info) Description 12/20/2023 Telephone Nephrology, [address] [address] Demetria Arizmendi MD [address] [place] [address] Appointment Allergies Active Allergy Reactions Criticality [...] day as needed. 0 Active nystatin (NYSTOP) 671066 UNIT/GM powderIndications:Cu taneous candidiasis Apply topically to [...] MG Oral TabletIndications:Co ronary artery disease involving [place] coronary artery of [place] heart without angina pectoris Take by mouth [...] MG Oral TabletIndications:Co ronary artery disease involving [place] coronary artery of [place] heart without angina pectoris Take 1 Tablet by mouth in the morning. In the morning.. 90 Tablet 1 04/05/2023 Active Metoprolol Succinate ER 50 MG Oral Tablet Extended Release 24 Hour (toPROL XL)Indications:Coron uziel artery disease involving [place] coronary artery of [place] heart without angina pectoris TAKE 1 & [...] less than 8.0% ([facility]) Use 3 times daily as directed 300 Strip 3 08/31/2023 Active TRUEplus Lancets 33GIndications:Type 2 diabetes mellitus with hemoglobin A1c goal of less than 8.0% ([facility]) Use 3 times daily as directed 300 [...] 01/24/2021 Opioid dependence, uncomplicated 01/22/2021 History of AL (myocardial infarction) 01/22/2021 Morbid obesity with BMI of 50.0-59.9, adult 09/20 History of subdural hematoma 10/04/2020 Gastroesophageal reflux disease without esophagi tis 10/04/2020 History of subarachnoid hemorrhage 10/04/2020 Coronary artery disease invo lving [place] heart without angina pectoris 10/04/2020 COPD, group [...] Calculus of kidney 08/20/2015 8 Overview: right, [place] CT Vitamin D deficiency 01/31/2015 018 Body [...] mRNA, LNP-s, No Pre serve, 2-Dose Series ([employer] 01/02/2021,12/05/2020 DTP Vaccine 07/19/2017,04/03/2014 Hepatitis B, [...] 7:00 AM EDT Laboratory Lab Mobile Phlebotomy [facility] [address] [place] [address] Mvmg, Gml Mobile Home Draw [address] [place] [address] 12/31/2023 6:00 AM EDT Anticoagulation Pharmacy Call Center WB [address] [facility] [place] [address] Ccps, [facility] Mt [address] [facility] [place] [address] Health Maintenance Due Date Last Done Comments [...] 02/03/2020 LUNG CANCER SCREENING - USE SMARTSET [id number] 2020 02/10/2019, 07/19/2017, 05/09/2017, Additional history exists [...] ( - 2022- season) 2023 01/02/2021, 12/05/2020 Colonoscopy 12/09/2023 12/08/2013, [...] this encounter Medical Devices Implanted Type Area Core Extruder Device Identifier Shelf Expiration Date Model / Serial / Lot Tube Flex 3.0x2.5 [id number] - [id number] Implanted:Qty: 1 on 12/07/2014 by Juancarlos Trinidad MD at [facility] Left: Finger [employer] : ORTHOPAEDICS 11/18/2015 [id number] / / [id number] documented as of this encounter Advance Directives [...] the patient have Health Care Power of Hand Fabric Cutter? No Healthcare Agents on File Name Relationship Healthcare Agent Relationship Communication Estrella Seth Other - (no specific identity) Health Care Power of Hand Fabric Cutter Care Teams Hop Strainer Relationship Specialty Start Date End Date Roberto Askew MD [address] [place] [address], [place] [address] PCP - General Internal Medicine 04/10/20 documented as of this encounter
--- OUTSIDE RECORDS SUMMARY | 2023-12-25 20:19 | External Medical Summary | Summary of Care ---
Author Name Unknown Organization [facility] Address [address] [place] [address] Phone [phone] Care Team Providers Care Email Marketing Specialist Name Role Phone Roberto Askew MD Primary Care Provider + Reason for Visit * Reason Comments Dosage Adjustment Via Phone (anticoag Cl inic) Encounter Details Date Type Department Care Team (Latest Contact Info) Description 12/17/2023 6:00 AM EDT Anticoagulation Pharmacy Call Center [address] [place] [address] [facility] [address] [facility] [place] [address] History of pulmonary embolism* Allergies Active Allergy [...] as of this encounter (statuses as of 12/17/2023) Medications Medication Sig Dispensed Refills Start Date [...] day as needed. 0 Active nystatin (NYSTOP) 967992 UNIT/GM powderIndications:Cu taneous candidiasis Apply topically to [...] MG Oral TabletIndications:Co ronary artery disease involving [place] coronary artery of [place] heart without angina pectoris Take by mouth [...] MG Oral TabletIndications:Co ronary artery disease involving [place] coronary artery of [place] heart without angina pectoris Take 1 Tablet by mouth in the morning. In the morning.. 90 Tablet 1 04/05/2023 Active Metoprolol Succinate ER 50 MG Oral Tablet Extended Release 24 Hour (toPROL XL)Indications:Coron uziel artery disease involving [place] coronary artery of [place] heart without angina pectoris TAKE 1 & [...] as of this encounter (statuses as of 12/17/2023) Active Problems Problem Noted Date Diagnosed Date [...] hemorrhage 10/04/2020 Coronary artery disease invo lving [place] heart without angina pectoris 10/04/2020 COPD, group [...] as of this encounter (statuses as of 12/17/2023) Resolved Problems Problem Noted Date Diagnosed Date [...] Calculus of kidney 08/20/2015 8 Overview: right, [place] CT Vitamin D deficiency 01/31/2015 018 Body [...] as of this encounter (statuses as of 12/17/2023) Immunizations Name Administration Dates Next Due COVID-19 mRNA, LNP-s, No Pre serve, 2-Dose Series ([employer]) 01/02/2021,12/05/2020 DTP Vaccine 07/19/2017,04/03/2014 Hepatitis B, 20+ [...] Notes * Aarti Caballero PHARM Tech - 12/17/2023 10:40 AM EDT Contacts Type Contact Phone/Fax 12/17/2023 10:39 AM EDT Phone (Outgoing) Stanton Milner (Self) [phone] (H) Left Message Subjective Advised patient to contact Anticoagulation Clinic if any unusual bruising or bleeding, recent illness, changes in medication, or questions/concerns. PT/INR results, Coumadin dose instructions, and next PT/INR date communicated as noted by Pharmacist: Yes ARTEM JEFFRIES 12/17/2023, 10:40 AM * Michael Jackson RPh - 12/17/2023 9:23 AM EDT Coumadin Clinic (region specific) Objective Current Warfarin Dose As of 12/17/2023 Warfarin maintenance plan: 2 mg (4 mg x 0.5) every Sat; 4 mg (4 mg x 1) all other days INR Result As of 12/17/2023 INR goal: 2.0-3.0 INR used for dosin.7 (12/16/2023) Assessment & Plan Warfarin Plan As of 12/17/2023 Full warfarin instructions: 12/16: 8 mg; Otherwise 2 mg every Sat; 4 mg all other days Next INR check: 12/30/2023 Repeat PT/INR in 2 week(s) Weekly dose: not changed Additional Dosing Information: Description [facility]) - pt prefers [facility] at this time Tech to contact patient with dose instructions as noted. Michael Jackson RPh 12/17/2023, 9:23 AM documented in this encounter Plan of Treatment Upcoming Encounters Date Type Department Care Team (Late st Contact Info) Description 12/30/2023 7:00 AM EDT Laboratory Lab Mobile Phlebotomy [facility] [address] [facility] [place] [address] Mvmg, Gml Mobile Home Draw [address] [place] [address] Health Maintenance Due Date Last Done Comments DISCUSS TOBACCO CESSATION (REFER TO SMARTSET #3808) 1970 HIV Screening 1985 O2 ASSESSMENT COMPLETED IN PAST YEAR FOR COPD 1988 Pneumococcal Vaccine: Pediatrics (0 to 5 Years) and At-Risk Patients (6 to 64 Years) (2 of 2 - PCV) 05/22/2010 05/22/2009 Cologuard 2015 Fecal Occult Blood Test 2015 Sigmoidoscopy 2015 *ADVANCE DIRECTIVE NOT ON FILE 02/03/2020 LUNG CANCER SCREENING - USE SMARTSET [id number] 2020 02/10/2019, 07/19/2017, 05/09/2017, Additional history exists [...] this encounter Medical Devices Implanted Type Area Supervisor Welding Equipment Repairer Device Identifier Shelf Expiration Date Model / Serial / Lot Tube Flex 3.0x2.5 [id number] - [id number] Implanted:Qty: 1 on 12/07/2014 by Juancarlos Trinidad MD at [facility] Left: Finger [employer] : ORTHOPAEDICS 11/18/2015 [id number] / / [id number] documented as of this encounter Visit Diagnoses [...] the patient have Health Care Power of Revenue Tax Specialist? No Healthcare Agents on File Name Relationship Healthcare Agent Relationship Communication Estrella Seth Other - (no specific identity) Health Care Power of Revenue Tax Specialist Care Teams Email Marketing Specialist Relationship Specialty Start Date End Date Roberto Askew MD [address] [place] [address] PCP - General Internal Medicine 04/10/20 documented as of this encounter
--- OUTSIDE RECORDS SUMMARY | 2023-12-25 20:19 | External Medical Summary | Summary of Care ---
Author Name Unknown Organization [facility] Address [address] [place] [address] Phone [phone] Care Team Providers Care Pipe Smoking Machine Offbearer Name Role Phone Roberto Askew MD Primary Care Provider + Reason for Visit * Reason Onset Date Comments Appointment 12/20/2023 Encounter Details Date Type Department Care Team ([facility] st Contact Info) Description 12/20/2023 Telephone Nephrology, [address] [address] Dayday Marino MD [address] [place] [address] Appointment Allergies Active Allergy Reactions Criticality [...] day as needed. 0 Active nystatin (NYSTOP) 065411 UNIT/GM powderIndications:Cu taneous candidiasis Apply topically to [...] MG Oral TabletIndications:Co ronary artery disease involving [place] coronary artery of [place] heart without angina pectoris Take by mouth [...] MG Oral TabletIndications:Co ronary artery disease involving [place] coronary artery of [place] heart without angina pectoris Take 1 Tablet by mouth in the morning. In the morning.. 90 Tablet 1 04/05/2023 Active Metoprolol Succinate ER 50 MG Oral Tablet Extended Release 24 Hour (toPROL XL)Indications:Coron uziel artery disease involving [place] coronary artery of [place] heart without angina pectoris TAKE 1 & [...] than 8.0% ([facility]) Use 3 times daily as directed 300 Strip 3 08/31/2023 Active TRUEplus Lancets 33GIndications:Type 2 diabetes mellitus with hemoglobin A1c goal of less than 8.0% ([facility]) Use 3 times daily as [...] hemorrhage 10/04/2020 Coronary artery disease invo lving [place] heart without angina pectoris 10/04/2020 COPD, group [...] Calculus of kidney 08/20/2015 8 Overview: right, [place] CT Vitamin D deficiency 01/31/2015 018 Body [...] mRNA, LNP-s, No Pre serve, 2-Dose Series ([employer]) 01/02/2021,12/05/2020 DTP Vaccine 07/19/2017,04/03/2014 Hepatitis B, 20+ [...] Encounter - Donna Winston OSA - 12/20/2023 8:29 AM EDT 12/20/23 Called patient, left message. Trying to get patient scheduled with Nephrology for hospital discharge appointment with Dr. Arizmendi or Dr. Marino. Called mobile phone number and got the busy tone. My G not active. documented in this encounter Plan of Treatment Upcoming Encounters Date Type Department Care Team (Late st Contact Info) Description 12/30/2023 7:00 AM EDT Laboratory Lab Mobile Phlebotomy [facility] [address] [place] [address] Mvmg, Gml Mobile Home Draw [address] [place] [address] [address] [address] 12/31/2023 6:00 AM EDT Anticoagulation Pharmacy Call Center WB [address] [facility] [place] [address] Ccps, [facility] Mt [address] [facility] [place] [address] Health Maintenance Due Date Last Done Comments [...] 02/03/2020 LUNG CANCER SCREENING - USE SMARTSET [id number] 2020 02/10/2019, 07/19/2017, 05/09/2017, Additional history exists [...] (3 - 2022- season) 2023 01/02/2021, 12/05/2020 Colonoscopy [...] this encounter Medical Devices Implanted Type Area Insurance Counsel Device Identifier Shelf Expiration Date Model / Serial / Lot Tube Flex 3.0x2.5 [id number] - [id number] Implanted:Qty: 1 on 12/07/2014 by Juancarlos Trinidad MD at [facility] Left: Finger [employer] : ORTHOPAEDICS 11/18/2015 [id number] / / [id number] documented as of this encounter Advance Directives [...] the patient have Health Care Power of Band Sawmill Operator? No Healthcare Agents on File Name Relationship Healthcare Agent Relationship Communication Estrella Seth Other - (no specific identity) Health Care Power of Band Sawmill Operator Care Teams Pipe Smoking Machine Offbearer Relationship Specialty Start Date End Date Roberto Askew MD [address] [place] [address] PCP - General Internal Medicine 04/10/20 documented as of this encounter
--- OUTSIDE RECORDS SUMMARY | 2023-12-25 20:20 | External Medical Summary | Summary of Care ---
Author Name Unknown Organization [facility] Address [address] [place] [address] Phone [phone] Care Team Providers Care Genetic Scientist Name Role Phone Roberto Askew MD Primary Care Provider + Reason for Visit * Reason Comments Dosage Adjustment Via Phone (anticoag Cl inic) Encounter Details Date Type Department Care Team (Latest Contact Info) Description 12/14/2023 6:00 AM EDT Anticoagulation Pharmacy Call Center [phone] [place] [address] [facility] [address] [place] [address] History of pulmonary embolism* Allergies Active Allergy [...] as of this encounter (statuses as of 12/14/2023) Medications Medication Sig Dispensed Refills Start Date [...] day as needed. 0 Active nystatin (NYSTOP) 792881 UNIT/GM powderIndications:Cu taneous candidiasis Apply topically to [...] less than 8.0% ([facility]) Use 3 times daily as directed 300 Strip 3 08/31/2023 Active TRUEplus Lancets 33GIndications:Type 2 diabetes mellitus with hemoglobin A1c goal of less than 8.0% ([facility]) Use 3 times daily as [...] as of this encounter (statuses as of 12/14/2023) Active Problems Problem Noted Date Diagnosed Date [...] as of this encounter (statuses as of 12/14/2023) Resolved Problems Problem Noted Date Diagnosed Date [...] Calculus of kidney 08/20/2015 8 Overview: right, [place] CT Vitamin D deficiency 01/31/2015 018 Body [...] as of this encounter (statuses as of 12/14/2023) Immunizations Name Administration Dates Next Due COVID-19 mRNA, LNP-s, No Pre serve, 2-Dose Series ([employer]) 01/02/2021,12/05/2020 DTP Vaccine 07/19/2017,04/03/2014 Hepatitis B, [...] this encounter Progress Notes * Stephani Soto rail loader - 12/14/2023 7:25 AM EDT Pt no showed 12/12 GML visit. Chart routed to mobile lab asking that the pt be rescheduled for pt/inr draw on 12/15. F/U call scheduled for 12/16 Thank you, Stephani Soto Studio Artist [facility] ([facility] (formerly Tele[facility]) [phone] 12/14/2023,7:26 AM documented in this encounter Plan of Treatment Upcoming Encounters Date Type Department Care Team (Late st Contact Info) Description 12/16/2023 11:20 AM EDT Office Visit Family [facility] [place] [address] [address] Kehinde Mc MD [address] [address] 12/17/2023 6:00 AM EDT Anticoagulation Pharmacy Call Center [address] [facility] [place] [address] [facility], [facility] [address] [facility] [place] [address] Health Maintenance Due Date Last Done Comments DISCUSS TOBACCO CESSATION (REFER TO SMARTSET #1385) 1970 HIV Screening 1985 O2 ASSESSMENT COMPLETED IN PAST YEAR FOR COPD 1988 Pneumococcal Vaccine: Pediatrics (0 to 5 Years) and At-Risk Patients (6 to 64 Years) (2 of 2 - PCV) 05/22/2010 05/22/2009 Cologuard 2015 Fecal Occult Blood Test 2015 Sigmoidoscopy 2015 *ADVANCE DIRECTIVE NOT ON FILE 02/03/2020 LUNG CANCER SCREENING - USE SMARTSET [id number] 2020 02/10/2019, 07/19/2017, 05/09/2017, Additional history exists [...] Medical Devices Implanted Type Area Director Of Cath Lab Device Identifier Shelf Expiration Date Model / Serial / Lot Tube Flex 3.0x2.5 [id number] - [id number] Implanted:Qty: 1 on 12/07/2014 by Juancarlos Trinidad MD at [facility] Left: Finger [employer] : ORTHOPAEDICS 11/18/2015 [id number] / / [id number] documented as of this encounter Visit Diagnoses [...] the patient have Health Care Power of Sales Recruitment Specialist? No Healthcare Agents on File Name Relationship Healthcare Agent Relationship Communication Estrella Seth Other - (no specific identity) Health Care Power of Sales Recruitment Specialist Care Teams Genetic Scientist Relationship Specialty Start Date End Date Roberto Askew MD [address] [place] [address] PCP - General Internal Medicine 04/10/20 documented as of this encounter
--- OUTSIDE RECORDS SUMMARY | 2023-12-25 20:20 | External Medical Summary | Summary of Care ---
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 [address] Anticoagulation management encounter* Allergies Active Allergy Reactions Criticality Noted Date [...] as of this encounter (statuses as of 12/10/2023) Medications Medication Sig Dispensed Refills Start Date [...] day as needed. 0 Active nystatin (NYSTOP) 136580 UNIT/GM powderIndications:Cu taneous candidiasis Apply topically to [...] MG Oral TabletIndications:Co ronary artery disease involving [place] coronary artery of [place] heart without angina pectoris Take by [...] MG Oral TabletIndications:Co ronary artery disease involving [place] coronary artery of [place] heart without angina pectoris Take 1 Tablet by mouth in the morning. In the morning.. 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 10/04/2020 COPD, [...] as of this encounter (statuses as of 12/10/2023) Resolved Problems Problem Noted Date Diagnosed Date [...] Calculus of kidney 08/20/2015 8 Overview: right, [place] CT Vitamin D deficiency 01/31/2015 018 Body [...] as of this encounter (statuses as of 12/10/2023) Immunizations Name Administration Dates Next Due COVID-19 mRNA, LNP-s, No Pre serve, 2-Dose Series ([employer]) 01/02/2021,12/05/2020 DTP Vaccine 07/19/2017,04/03/2014 Hepatitis B, 20+ [...] this encounter Progress Notes * Delilah Boland makeup artist - 12/10/2023 7:06 AM EDT Please schedule patient for PT/INR draw with GML for Wednesday12/13/23. Keren Sanchez [facility] Thank you, Delilah Boland Delivery Coordinator [facility] 12/10/2023,7:07 AM documented in this encounter Plan of Treatment Upcoming Encounters Date Type Department Care Team (Late st Contact Info) Description 12/14/2023 6:00 AM EDT Anticoagulation Pharmacy Call Center [address] [place] [address] [facility] [address] [facility] [place] [address] Health Maintenance Due Date Last Done Comments DISCUSS TOBACCO CESSATION (REFER TO SMARTSET #3427) 1970 HIV Screening 1985 O2 ASSESSMENT COMPLETED IN PAST YEAR FOR COPD 1988 Pneumococcal Vaccine: Pediatrics (0 to 5 Years) and At-Risk Patients (6 to 64 Years) (2 of 2 - PCV) 05/22/2010 05/22/2009 Cologuard 2015 Fecal Occult Blood Test 2015 Sigmoidoscopy 2015 *ADVANCE DIRECTIVE NOT ON FILE 02/03/2020 LUNG CANCER SCREENING - USE SMARTSET [id number] 2020 02/10/2019, 07/19/2017, 05/09/2017, Additional history exists [...] this encounter Medical Devices Implanted Type Area Brazing Machine Operator Device Identifier Shelf Expiration Date Model / Serial / Lot Tube Flex 3.0x2.5 [id number] - [id number] Implanted:Qty: 1 on 12/07/2014 by Juancarlos Trinidad MD at [facility] Left: Finger [employer] : ORTHOPAEDICS 11/18/2015 [id number] / / [id number] documented as of this encounter Visit Diagnoses Diagnosis Anticoagulation management encounter- Primary Encounter for therapeutic drug monitoring documented in this encounter Advance Directives Latest [...] the patient have Health Care Power of Leadership Development Consultant? No Healthcare Agents on File Name Relationship Healthcare Agent Relationship Communication Estrella Seth Other - (no specific identity) Health Care Power of Leadership Development Consultant Care Teams Molasses Coloring Operator Relationship Specialty Start Date End Date Roberto Askew MD [address] [place] [address] PCP - General Internal Medicine 04/10/20 documented as of this encounter
--- OUTSIDE RECORDS SUMMARY | 2023-12-25 20:20 | External Medical Summary ---
Author Name Unknown Address Unknown Organization [id number] [address] [place] [address] Laboratory Report Ordering Provider Test Date Status ABADOMENICALIONEL 12/16/2023 09:12:00 Final Standing order for pt/inr. < br/>Please draw pt/inr every 1 to 4 weeks as requested
Results to [facility]

Warfarin Therapy
INR: 2.0-3.0 conventional anticoagulation
INR: 2.5-3.5 high intensity anticoagulation Observation Date Value Abnormality Reference (Units ) Status PT 12/16/2023 09:12:00 20.3 Above high normal 11 .6-15.2 (seconds) Final INR 12/16/2023 09:12:00 1.7 Above high normal 0. 8-1.2 Final Performing Location [facility] [address] [place] [address]
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
[2023-12-25 21:23] LABS: Basophils # (auto) 0.07 K/uL (0.00-0.20); Basophils % (auto) 0.4 %; Eosinophils # (auto) 0.24 K/uL (0.00-0.50); Eosinophils % (auto) 1.4 %; Hematocrit (blood only) 42.8 % (42.0-52.0); Hemoglobin 13.7 g/dl (14.0-18.0); Immature Granulocytes # (auto) 0.25 K/uL (0.01-0.20); Immature Granulocytes % (auto) 1.4 %; Lymphocytes # (auto) 3.25 K/uL (1.20-3.40); Lymphocytes % (auto) 18.4 %; Mean Corpuscular Hemoglobin 25.8 pg (25.0-34.0); Mean Corpuscular Volume 80.8 fL (80.0-100.0); Mean Platelet Volume 10.6 fL (9.4-12.4); Monocytes # (auto) 0.82 K/uL (0.11-0.59); Monocytes % (auto) 4.7 %; Neutrophils % (auto) 73.7 %; Platelet Count 333 K/uL (130-400); RDW Coefficient of Variation 20.4 % (11.5-14.5); RDW Standard Deviation 57.4 fL (36.4-46.3); White Blood Count 17.63 K/ul (4.8-10.8)
[2023-12-25 21:29] LABS: Albumin Level 3.6 gm/dl (3.4-5.0); BUN Creatinine Ratio 11.6 (10-20); Bilirubin,Total 0.6 mg/dl (0.2-1.0); Calcium 9.4 mg/dl (8.6-10.3); Creatinine Clr Calc Pharmacy 154.5 ml/min; Est GFR (African American) 105.5 ml/min; Globulin 3.7 gm/dl (2.5-4.0); Potassium 3.1 mmol/L (3.5-5.1); Total Protein 7.3 gm/dl (6.0-8.3)
[2023-12-25] MEDS: SODIUM CHLORIDE 0.9% 500 ML IV STA (21:34)
[2023-12-25 21:36] LABS: Troponin I High Sensitivity 14.1 pg/ml (0-20)
[2023-12-25] MEDS: ACETAMINOPHEN 1,000 MG/100 ML VIAL IV STA (21:59)
[2023-12-25 22:00] LABS: Base Excess VBG 12.8 mEq/L; HCO3 VBG 40 mmol/L; Oxygen Saturation VBG < 60.0 %; PCO2 VBG 60 mmHg (38-50); PO2 VBG < 20 mmHg; pH VBG 7.43 (7.36-7.41)
--- NOTE | 2023-12-25 22:06 | CT Scan Report ---
Exam(s): CT HEAD Without Contrast EXAM: CT Head Without Intravenous Contrast CLINICAL HISTORY: Reason for exam: syncope. TECHNIQUE: Axial computed tomography images of the head/brain without intravenous contrast. CTDI is 53.54 mGy and DLP is 874.17 mGy-cm. Automated exposure control was utilized for the study. A dose lowering technique was utilized adhering to the principles of ALARA. COMPARISON: No relevant prior studies available. FINDINGS: No acute intracranial hemorrhage. No midline shift or mass effect. The territorial donald-white matter differentiation is maintained throughout. The ventricles and sulci are commensurate with age. The visualized orbits appear grossly unremarkable. The calvarium is intact. Mucosal thickening of the RIGHT maxillary sinus. IMPRESSION: No acute intracranial hemorrhage, midline shift, or mass effect. Electronically signed by: Joe Lr MD 12/25/23 22:05 PM
--- NOTE | 2023-12-25 22:08 | CT Scan Report ---
Exam(s): CT C SPINE EXAM: CT Cervical Spine Without Intravenous Contrast CLINICAL HISTORY: Reason for exam: fall. TECHNIQUE: Axial computed tomography images of the cervical spine without intravenous contrast. CTDI is 38.1 mGy and DLP is 824.4 mGy-cm. Automated exposure control was utilized for the study. A dose lowering technique was utilized adhering to the principles of ALARA. COMPARISON: No relevant prior studies available. FINDINGS: The vertebral body heights are maintained. The craniocervical junction is intact. The atlanto-dens interval is maintained. The dens is intact. There is no spondylolisthesis. Multilevel cervical spondylosis and degenerative disc disease. Straightening of the cervical lordosis. The unenhanced neck soft tissues are grossly unremarkable. The visualized lung apices are grossly clear. IMPRESSION: No acute fracture or subluxation of the cervical spine. Electronically signed by: Joe Lr MD 12/25/23 22:08 PM
[2023-12-25 22:14] LABS: Appearance Urine Cloudy (Clear); Bacteria Urine Automated 4+ (Negative); Bilirubin Urine Negative (Negative); Blood Urine 1+ (Negative); Color Urine Yellow; Glucose Urine UA Negative (Negative); Ketones Urine Negative (Negative); Leukocyte Esterase Urine 3+ (Negative); Nitrite Urine Positive (Negative); Protein Urine Negative (Negative); Specific Gravity Urine 1.009 (1.000-1.030); Urobilinogen Urine Negative (Negative); WBC Urine Automated >30 /hpf (0-5); pH Urine 7.5 (4.5-7.5)
[2023-12-25 22:28] LABS: Anisocytosis Present; Polychromasia 1+
[2023-12-25 23:17] LABS: INR 2.8 (0.9-1.1); Partial Thromboplastin Ratio 1.7; Partial Thromboplastin Time 48 Seconds (21-31); Prothrombin Time 28.7 Seconds (9.0-12.0)
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
[2023-12-25 23:55] LABS: Magnesium 1.8 mg/dl (1.7-2.4)
[2023-12-26] MEDS: AZTREONAM 2,000 MG in DEXTROSE 5% MINI-B 100 ML IV STA (00:15)
[2023-12-26] MEDS: PIPERACILLIN/TAZOBACTAM 4.5 GM/100 ML BAG IV ONE (00:15)
[2023-12-26] MEDS: POTASSIUM CHLORIDE CRTAB 20 MEQ TABCR PO STA ×2 (00:15→09:38)
[2023-12-26] MEDS: POTASSIUM CHLORIDE 20 MEQ/15 ML UDC PO STA (00:15)
[2023-12-26] MEDS ORDERED: SENNA 8.6 MG TAB PO PRN (00:21)
[2023-12-26] MEDS ORDERED: hydrOXYzine HCl 25 MG TAB PO PRN (00:21)
[2023-12-26] MEDS ORDERED: POLYETHYLENE (MIRALAX) 17 GM PACK PO PRN (00:21)
[2023-12-26] MEDS ORDERED: DOCUSATE SODIUM 100 MG CAP PO PRN (00:21)
[2023-12-26] MEDS ORDERED: ACETAMINOPHEN 325 MG TAB PO PRN (00:24)
[2023-12-26] MEDS ORDERED: GLUCOSE 10 TAB/TUBE PO PRN (00:32)
[2023-12-26] MEDS ORDERED: CARBOHYDRATES FOR HYPOGLYCEMIA PO PRN (00:32)
[2023-12-26] MEDS ORDERED: DEXTROSE 50% 50 ML SYRINGE IV PRN (00:32)
[2023-12-26] MEDS ORDERED: GLUCAGON FOR INJ 1 MG VIAL SQ PRN (00:32)
[2023-12-26] MEDS ORDERED: GLUCOSE 40% GEL 15 GM TUBE PO PRN (00:32)
[2023-12-26 00:39] LABS: Thyroid Stimulating Hormone 1.077 uIu/ml (0.300-4.500)
[2023-12-26] MEDS: METOPROLOL SUCC 25MG EXT REL TAB PO STA (01:03)
[2023-12-26] MEDS: buprenorphine HCL 8 MG SUBL SL STA (01:03)
[2023-12-26] MEDS: POTASSIUM CHLORIDE CRTAB 20 MEQ TABCR PO ONE (01:04)
[2023-12-26] MEDS: NICOTINE 21 MG/24 HR TDSY TD STA (01:04)
[2023-12-26] MEDS: LANTUS PER UNIT CHARGE SC STA (01:15)
[2023-12-26] MEDS: INSULIN ASPART PER UNIT CHARGE SC STA (01:32)
[2023-12-26 02:18] LABS: Influenza A virus by PCR Negative (Neg); Influenza B virus by PCR Negative (Neg); RSV by PCR Negative (Neg); SARS CoV2 RNA(COVID-19) Ceph NEGATIVE (Negative)
[2023-12-26 06:06] LABS: Basophils # (auto) 0.08 K/uL (0.00-0.20); Basophils % (auto) 0.5 %; Eosinophils # (auto) 0.38 K/uL (0.00-0.50); Eosinophils % (auto) 2.2 %; Hemoglobin 12.8 g/dl (14.0-18.0); Immature Granulocytes % (auto) 1.2 %; Lymphocytes # (auto) 3.04 K/uL (1.20-3.40); Lymphocytes % (auto) 17.6 %; Mean Corpuscular Hgb Conc 32.8 g/dL (32.0-36.0); Mean Corpuscular Volume 79.1 fL (80.0-100.0); Mean Platelet Volume 10.3 fL (9.4-12.4); Monocytes # (auto) 0.95 K/uL (0.11-0.59); Monocytes % (auto) 5.5 %; Neutrophils # (auto) 12.62 K/uL (1.40-6.50); Platelet Count 323 K/uL (130-400); RDW Coefficient of Variation 19.8 % (11.5-14.5); RDW Standard Deviation 55.5 fL (36.4-46.3); Red Blood Count 4.93 M/uL (4.70-6.10); White Blood Count 17.27 K/ul (4.8-10.8)
[2023-12-26 06:22] LABS: BUN Creatinine Ratio 11.7 (10-20); Calcium 9.2 mg/dl (8.6-10.3); Creatinine Clr Calc Pharmacy 156.1 ml/min; Est GFR (African American) 106.9 ml/min; Est GFR (Non-African American) 92.2 ml/min; Potassium 2.9 mmol/L (3.5-5.1)
[2023-12-26 06:38] LABS: INR 2.6 (0.9-1.1); Prothrombin Time 26.6 Seconds (9.0-12.0)
[2023-12-26] MEDS: BUDESONIDE 0.5 MG/2 ML VIAL (PULMICORT) INH SCH (06:47)
[2023-12-26] MEDS: ALBUT/IPRATROP 3MG/0.5MG NEB 3 ML VIAL INH SCH (06:47)
[2023-12-26] MEDS: PANTOprazole 40 MG TAB PO SCH (06:50)
[2023-12-26] MEDS ORDERED: ETOMIDATE 2 MG/ML 20 ML VIAL IV ONE (07:40)
[2023-12-26] MEDS ORDERED: ROCURONIUM BROMIDE 10 MG/ML 5 ML VIAL IV ONE (07:40)
[2023-12-26] MEDS ORDERED: SUCCINYLCHOLINE CHLORIDE 20 MG/ML 10 ML VIAL IV ONE (07:40)
--- NOTE | 2023-12-26 08:14 | XRay Report ---
XR chest 1V portable CLINICAL HISTORY: syncope TECHNIQUE: Single frontal radiograph of the chest was obtained. Comparison: Comparison is made to chest radiograph 12/06/2023 FINDINGS: Stable loop recorder. The cardiomediastinal silhouette is stable. The lungs are clear. No evidence of pleural effusion or pneumothorax. IMPRESSION: No acute chest disease. ACT 112: Negative or not required by law. Electronically signed by: Armand Tobar M.D. 12/26/2023 8:13 AM
--- NOTE | 2023-12-26 08:16 | Hospitalist Progress Note ---
Date of Service December 26, 2023 Assessment & Plan (1) Complicated UTI (urinary tract infection): Plan: Plan Pt is a 53yoM with PMHx significant for chronic diastolic heart failure (EF 60 to 65%, TTE 2022), history CAD/STEMI as per records, history subdural hematoma/subarachnoid hemorrhage as per records (no operative intervention), hypertension, hyperlipidemia, COPD, recurrent PE on Coumadin, DM 2 insulin requiring, recurrent UTIs secondary to BPH/chronic urinary retention indwelling Lloyd catheter, chronic anemia (baseline hemoglobin 12-13), chronic pain on buprenorphine admitted with recurrent UTI and syncopal episode once more. Pt was completing a CT abd/pelvis on 12/25 when he coded in the CT scanner after laying flat. Reportedly was saturating in the 60s and lost color. He was not able to tolerate bipap and was subsequently intubated and transferred to the ICU. He is currently also being treated for the following: Acute on Chronic hypoxic and hypercarbic respiratory failure- currently in the ICU, intubated and sedated. Recurrent UTI- on Aztreonam, urology and ID consulted. Appreciate recs Syncope- has loop recorder, orthostatic vitals, continue to monitor on telemetry Hypokalemia- replete as needed DVT prophylaxis: On coumadin, INR currently therapeutic Diet: currently NPO Dispo: ICU Admission and Anticipated Discharge Date Admission Date: December 25, 2023 Subjective Pt was seen multiple times during the day. Initially down in the ED in the AM. States that he felt like "crap". Later pt as a code in the CT scanner after laying flat to have CT abd/pelvis completed. Pt was intubated and transferred to the ICU. called and updated. Review of Systems Review of Systems: All systems reviewed & are unremarkable except as noted in Subjective Physical Exam Physical Exam: General: morbidly obese, sitting in chair originally Psych: Appropriate mood and affect Neuro: Difficulty with movements in the chair HEENT: NC/AT Chest: Nontender to palpation. CV: RRR Resp: Breath sounds clear but decreased bilaterally Abdomen: Soft Extremities: edema in lower extremities bilaterally. Results & Data Results & Data Vital Signs (Past 12 Hours) Vital Signs Temp Pulse Pulse Resp BP BP Pulse Ox 12/26/23 05:00 64 13 133/71 12/26/23 04:30 66 18 12/26/23 04:27 12/26/23 04:24 12/26/23 04:00 68 14 12/26/23 03:30 71 12/26/23 03:00 67 16 12/26/23 02:47 37.4 C 70 21 93 12/26/23 01:26 104/73 12/26/23 01:26 79 23 12/26/23 01:00 67 12 12/26/23 00:36 72 16 103/68 93 12/26/23 00:36 12/26/23 00:32 24 12/25/23 22:30 80 14 12/25/23 22:00 86 17 12/25/23 22:00 124/63 12/25/23 21:52 83 14 12/25/23 21:52 140/67 12/25/23 21:05 93 12/25/23 21:00 83 16 12/25/23 20:30 86 18 12/25/23 20:19 94 H 16 98 12/25/23 20:19 92 H 12/25/23 20:17 36.3 C L 12/25/23 20:17 36.3 C L 87 14 127/91 93 Pulse Ox O2 Del Method O2 Del Method O2 Flow Rate 12/26/23 05:00 12/26/23 04:30 12/26/23 04:27 Room Air 12/26/23 04:24 Nasal Cannula 4 12/26/23 04:00 12/26/23 03:30 12/26/23 03:00 12/26/23 02:47 Nasal Cannula 12/26/23 01:26 12/26/23 01:26 12/26/23 01:00 12/26/23 00:36 Nasal Cannula 4 12/26/23 00:36 93 Room Air 12/26/23 00:32 12/25/23 22:30 12/25/23 22:00 12/25/23 22:00 12/25/23 21:52 12/25/23 21:52 12/25/23 21:05 Room Air 12/25/23 21:00 12/25/23 20:30 12/25/23 20:19 12/25/23 20:19 12/25/23 20:17 12/25/23 20:17 Room Air
[2023-12-26] MEDS: AZTREONAM 2,000 MG in DEXTROSE 5% MINI-B 100 ML IV SCH (08:25)
[2023-12-26] MEDS: SPIRONOLACTONE 25 MG TAB PO SCH (08:26)
[2023-12-26] MEDS: ADVANCED PROBIOTIC 625 MG CAPSULE PO SCH (08:26)
[2023-12-26] MEDS: FERROUS SULFATE 325 MG TAB PO SCH (08:27)
[2023-12-26] MEDS: FINASTERIDE 5 MG TAB PO SCH (08:27)
[2023-12-26] MEDS: ATORVASTATIN 40 MG TAB PO SCH (08:27)
[2023-12-26] MEDS: DULoxetine HCL 60 MG CAP PO SCH (08:27)
[2023-12-26] MEDS: GABAPENTIN 800 MG TAB PO SCH (08:28)
[2023-12-26] MEDS: FOLIC ACID 1 MG TAB PO SCH (08:28)
[2023-12-26] MEDS: ISOSORBIDE DINITRATE 20 MG TAB PO SCH (08:29)
[2023-12-26] MEDS: FAMOTIDINE 20 MG TAB PO SCH (08:30)
[2023-12-26] MEDS: ASPIRIN 81 MG ECTAB PO SCH (08:30)
[2023-12-26] MEDS: METOPROLOL SUCC 25MG EXT REL TAB PO SCH (08:30)
[2023-12-26] MEDS: TAMSULOSIN HCL 0.4 MG CAP PO SCH (08:31)
[2023-12-26] MEDS: FLUTICASONE/VILANTEROL 100/25MCG 14 PUFFS/INHALER INH SCH (08:32)
[2023-12-26] MEDS: FLUTICASONE PROPIONATE NA SPR 16 GM BTL SCH (08:36)
[2023-12-26] MEDS ORDERED: POTASSIUM CHLORIDE CRTAB 20 MEQ TABCR PO SCH (09:00)
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
[2023-12-26] MEDS: INSULIN ASPART PER UNIT CHARGE SC SCH (09:08)
[2023-12-26] MEDS: buprenorphine HCL 8 MG SUBL PO SCH ×2 (09:39→14:56)
[2023-12-26] MEDS: PROMETHAZINE HCL 12.5 MG in SODIUM CHLORIDE 0.9% 50 ML IV PRN (10:48)
[2023-12-26] MEDS: NICOTINE 21 MG/24 HR TDSY TD SCH (10:48)
[2023-12-26] MEDS: POTASSIUM CHLORIDE CRTAB 20 MEQ TABCR PO SCH (10:49)
[2023-12-26] MEDS ORDERED: ALBUT/IPRATROP 3MG/0.5MG NEB 3 ML VIAL INH PRN (13:13)
[2023-12-26] MEDS: OPTIRAY 320 125ml IV ONE (13:45)
--- NOTE | 2023-12-26 14:07 | Emergency Department Note ---
ED Visit Note CODE Alert: Date: 12/26/23. Time: 1:45pm Called to CT rm1 for code purple Code being run by staff Code Status: full per nursing at bedside Brief summary: 53-year-old male admitted over the evening for worsening respiratory status. He arrived to CT scan for CT abdomen pelvis with plan to go to floor after that. CT was being completed patient was noted to become increasingly apneic and blue. Patient was unresponsive and thus code purple called. Continued to have a pulse and weak breathing. Oxygenation 55% on nonrebreather. Patient did start improving a bit with BiPAP and but confused and began tearing at equipment. Taken to critical care bay. Patient encephalopathic hypoxic and altered. Heart rate in the 150s. Decision to intubate due to inability to protect airway and not able to follow commands or tolerate BiPAP/nonrebreather. Intubated by me without difficulty. Post O2 sats 98%. Heart rate did come down nicely and he required some further sedatives with propofol and paralyzed further. Endotracheal Intubation Indication: Acute respiratory failure The patient was being bagged by respiratory with BVM. Suction, airway equipment, RSI drugs, respiratory equipment, and appropriate personnel were prepared prior to the initiation of the procedure. A time out was taken. Induction was performed with etomidate and succinylcholine. After observing the clinical benefit of the medications, the airway was easily visualized utilizing a glide scope #4. A 8.4 size ETT tube was placed atraumatically to 26 cm using standard technique. The cuff inflated without signs of malfunction. There were bilateral breath sounds, positive colormetric change, no gastric sounds, a good capnography waveform, and post procedure pulse oximetry was 98%. Post intubation sedation and paralysis was administered using propofol. There were no complications. Nikolai Harris MD
[2023-12-26] MEDS ORDERED: STAT IV Infusion **Titration per Protocol STA ×2 (14:49→16:06)
[2023-12-26] MEDS: RAPID SEQUENCE INDUCTION BAG ONE (14:55)
[2023-12-26] MEDS: PROPOFOL IV EMULSION 10 MG/ML 100 ML VIAL IV ONE (14:56)
[2023-12-26] MEDS: propofoL 1,000 MG/100 ML VIAL IV SCH (14:58)
[2023-12-26] MEDS: PROPOFOL BOLUS FROM BAG IV PRN (15:19)
--- NOTE | 2023-12-26 15:27 | CT Scan Report ---
CT abd pelvis IV con only CLINICAL HISTORY: recurrent UTIs, abdominal pain TECHNIQUE: Helical axial images of the abdomen and pelvis were obtained and displayed. Automated dose lowering techniques and/or adjustment according to patient size were utilized for this exam. This e xam was performed with intravenous contrast. CT DOSE: 1855.37 mGy.cm COMPARISON: Comparison is made to CT abdomen pelvis 07/20/2023 FINDINGS: Lower chest: Bibasilar atelectasis versus scarring is seen. Liver: Hepatic steatosis is noted. Gallbladder and biliary tree: The gallbladder is contracted. No intra- or extrahepatic biliary ductal dilation. Pancreas: Fatty replacement of the pancreas is seen. Spleen: Unremarkable. Adrenals: Unremarkable. Kidneys and ureters: Nonobstructive nephrolithiasis is seen. A right renal cyst is seen. Bladder: Lloyd catheter is seen. Reproductive organs: Unremarkable. Bowel: Patient is status post appendectomy. Lymph nodes Retroperitoneal: Unremarkable. Pelvic: Unremarkable. Mesenteric: Unremarkable. Peritoneum: Normal. Vessels: Unremarkable. Abdominal wall: Bilateral fat-containing inguinal hernias are seen. Bones: Mild degenerative changes are seen. IMPRESSION: 1. No acute abnormality. No CT evidence of ascending infection in this patient with recurrent UTIs. Nonobstructive nephrolithiasis is seen on the right. 2. Hepatic steatosis. ACT 112: Negative or not required by law. Electronically signed by: Armand Tobar M.D. 12/26/2023 3:25 PM
--- NOTE | 2023-12-26 15:47 | XRay Report ---
XR chest 1V portable CLINICAL HISTORY: hypoxia TECHNIQUE: Single frontal radiograph of the chest was obtained. Comparison: Comparison is made to chest radiograph 12/25/2023 FINDINGS: Endotracheal tube terminates 3.4 cm from the jenna. An enteric tube tip and side-port appear to lie below the diaphragm although evaluation is limited by underpenetration. Battery-powered device projec ts over the chest wall. Cardiomegaly is noted. The lungs are clear. No evidence of pleural effusion o r pneumothorax. IMPRESSION: No acute abnormalities and in particular no radiographic evidence of pneumonia. ACT 112: Negative or not required by law. Electronically signed by: Armand Tobar M.D. 12/26/2023 3:46 PM
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
[2023-12-26] MEDS: fentaNYL citrate 2,500 MCG/250 ML BAG IV SCH (16:30)
[2023-12-26] MEDS: FLUCONAZOLE 100 MG TAB PO SCH (16:31)
[2023-12-26] MEDS: PLASMA-LYTE A 1,000 ML IV SCH (17:05)
[2023-12-26 17:14] LABS: iSTAT Allen Test Pass; iSTAT Art Bld Gas pCO2 Correct 53 mmHg (35-46); iSTAT Art Bld Gas pH Corrected 7.399 (7.35-7.45); iSTAT Arterial Blood Gas HCO3 33 meg/L (19-24); iSTAT Arterial Blood Gas pCO2 53 mmHg (35-46); iSTAT Arterial Blood Gas pO2 87 mmHg (80-95); iSTAT Arterial Blood Gas pO2 C 87; iSTAT Carbon Dioxide 34 mmol/L (24-31); iSTAT FiO2 70 %; iSTAT Hematocrit 41 % (42-52); iSTAT Hemoglobin 13.9 g/dl (14.0-18.0); iSTAT Potassium 3.7 mmol/L (3.3-5.0); iSTAT Site L Radial; iSTAT Sodium 127 mmol/L (135-144)
[2023-12-26] MEDS: ICU ELECTROLYTE REPLACEMENT PROTOCOL SCH (17:30)
[2023-12-26] MEDS: LANTUS PER UNIT CHARGE SC SCH (20:41)
[2023-12-26] MEDS: FUROSEMIDE 40 MG/4 ML VIAL IV SCH (20:42)
[2023-12-26] MEDS: ICU Protocol for HYPERglycemia SCH (20:44)
[2023-12-26] MEDS ORDERED: VANCOMYCIN HCL 1,000 MG in SODIUM CHLORIDE 0.9% 250 ML IV SCH (22:00)
--- NOTE | 2023-12-26 22:52 | Electrocardiogram Report ---
Test Reason : Blood Pressure : / mmHG Vent. Rate : 085 BPM Atrial Rate : 085 BPM P-R Int : 160 ms QRS Dur : 120 ms QT Int : 406 ms P-R-T Axes : 015 029 047 degrees QTc Int : 483 ms Normal sinus rhythm Right bundle branch block Abnormal ECG When compared with ECG of 06-DEC-2023 10:35, No significant change Confirmed by Shaquille Canales ([id number]) on 12/26/2023 10:52:48 PM Referred By: REFERRED SELF Confirmed By:Shaquille Canales
[2023-12-27 04:11] LABS: Basophils # (auto) 0.09 K/uL (0.00-0.20); Basophils % (auto) 0.6 %; Eosinophils % (auto) 3.1 %; Hematocrit (blood only) 42.4 % (42.0-52.0); Hemoglobin 13.6 g/dl (14.0-18.0); Immature Granulocytes # (auto) 0.34 K/uL (0.01-0.20); Immature Granulocytes % (auto) 2.1 %; Lymphocytes # (auto) 2.85 K/uL (1.20-3.40); Lymphocytes % (auto) 17.5 %; Mean Corpuscular Hemoglobin 25.7 pg (25.0-34.0); Mean Corpuscular Hgb Conc 32.1 g/dL (32.0-36.0); Mean Corpuscular Volume 80.2 fL (80.0-100.0); Mean Platelet Volume 10.2 fL (9.4-12.4); Monocytes # (auto) 0.84 K/uL (0.11-0.59); Monocytes % (auto) 5.2 %; Neutrophils # (auto) 11.68 K/uL (1.40-6.50); Neutrophils % (auto) 71.5 %; Platelet Count 335 K/uL (130-400); RDW Coefficient of Variation 20.3 % (11.5-14.5); Red Blood Count 5.29 M/uL (4.70-6.10)
[2023-12-27 04:26] LABS: Albumin Level 3.1 gm/dl (3.4-5.0); BUN Creatinine Ratio 11.1 (10-20); Bilirubin,Total 0.5 mg/dl (0.2-1.0); Calcium 8.9 mg/dl (8.6-10.3); Creatinine Clr Calc Pharmacy 108.7 ml/min; Est GFR (Non-African American) 59.5 ml/min; Globulin 3.2 gm/dl (2.5-4.0); Magnesium 1.9 mg/dl (1.7-2.4); Phosphorus 1.9 mg/dl (2.5-4.9); Potassium 3.5 mmol/L (3.5-5.1); Total Protein 6.3 gm/dl (6.0-8.3)
[2023-12-27 04:34] LABS: Anisocytosis Present; INR 2.6 (0.9-1.1); Polychromasia 1+; Prothrombin Time 26.6 Seconds (9.0-12.0)
[2023-12-27] MEDS: fentaNYL BOLUS from BAG IV PRN (04:52)
[2023-12-27] MEDS ORDERED: POTASSIUM PHOS 3 MMOL/1 ML INFUSION IV STA (05:19)
[2023-12-27 05:20] LABS: iSTAT Art Bld Gas pCO2 Correct 68 mmHg (35-46); iSTAT Art Bld Gas pH Corrected 7.281 (7.35-7.45); iSTAT Arterial Blood Gas HCO3 32 meg/L (19-24); iSTAT Arterial Blood Gas pCO2 67 mmHg (35-46); iSTAT Arterial Blood Gas pH 7.29 (7.35-7.45); iSTAT Arterial Blood Gas pO2 38 mmHg (80-95); iSTAT Arterial Blood Gas pO2 C 39; iSTAT Carbon Dioxide 34 mmol/L (24-31); iSTAT FiO2 40 %; iSTAT Hematocrit 43 % (42-52); iSTAT Hemoglobin 14.6 g/dl (14.0-18.0); iSTAT Potassium 3.2 mmol/L (3.3-5.0); iSTAT Site L Brachial; iSTAT Sodium 132 mmol/L (135-144)
[2023-12-27] MEDS: MAGNESIUM SULFATE / D5W 1 GM/100 ML BAG IV ONE (05:48)
[2023-12-27] MEDS: POTASSIUM PHOSPHATE 30 MMOL in SODIUM CHLORIDE 0.9% 500 ML IV ONE (05:48)
--- NOTE | 2023-12-27 07:34 | Critical Care Progress Note ---
Date of Service December 27, 2023 Assessment & Plan (1) Acute on chronic respiratory failure with hypoxia and hypercapnia: (2) Obesity hypoventilation syndrome: (3) Pulmonary edema: (4) Acute UTI: Plan Impression: 53-year-old morbidly obese male with acute on chronic hypoxemic and hypercarbic respiratory failure admitted with syncopal episode and urinary tract infection and intubated due to lying flat for a CT scan of the abdomen and pelvis which was unrevealing. Suspect the etiology of his respiratory failure was fluid shifts and exacerbation of his underlying obesity hypoventilation syndrome. Recommendations: 1. Neurologic: Patient has a history of chronic opioid use and is on Suboxone as an outpatient. This will be held. Will use fentanyl as well as propofol for sedation. Sedation breaks once the patient's mechanical ventilation requirements are appropriate. 2. Cardiovascular: Hemodynamically stable. Appears volume overloaded. Initiate diuresis. 3. Pulmonary: Acute on chronic hypoxemic and hypercarbic respiratory failure. Continue mechanical ventilator settings. Will increase PEEP. Follow-up blood gas in the a.m.. If the patient's respiratory mechanics improved, consideration for spontaneous breathing trials might be appropriate. He will likely need to be extubated to some form of CPAP or BiPAP. He apparently has never been diagnosed with sleep disordered breathing although he does have chronic baseline hypercarbia and would qualify for noninvasive positive pressure ventilation just based on his resting CO2 levels. Unfortunately in the past he has been reluctant to be compliant with this. The only other alternative would be a tra cheostomy. Weight loss is fundamentally required to solve the patient's issues 4. Renal: Continue diuresis. Initiate ICU replacement electrolyte protocol 5. GI: N.p.o. for now. 6. Endocrine: Glycemic control per ICU protocol 7. ID: Patient with probable UTI. He is growing Klebsiella and Proteus in the past. He is currently on aztreonam given his antibiotic allergies. ID consultation has been requested by the primary admitting service and will defer additional antibiotics to the. He has a chronic indwelling Lloyd and it is unlikely that he will be able to be liberated from his Lloyd catheter. Notes indicate a failure to follow-up in the urology clinic in the outpatient setting. 8. Heme-onc: Anticoagulated on Coumadin. INR therapeutic. Will follow daily. Once it drops below 2.0, initiation of anticoagulation using either Lovenox, direct thrombin inhibitor, or heparin infusion would be appropriate. Patient is critically ill at this point in time with significant multiorgan system dysfunction. Significant possibility of clinical decline and/or . A total of 35 minutes in critical care time was spent in evaluation management and coordination of care for this patient. Update: Patient failed spontaneous breathing trial, need to optimize blood gas prior to trial of extubation. Admission and Anticipated Discharge Date Admission Date: December 25, 2023 Subjective intubated and sedated Physical Exam Physical Exam: General: Sedated. nontoxic. Skin: Warm, dry, Head: Atraumatic Ears, nose, mouth and throat: airway obscured by endotracheal tube Cardiovascular: Normal peripheral perfusion Respiratory: Ventilator settings reviewed Gastrointestinal: Non distended Musculoskeletal: No deformity Results & Data Results & Data Vital Signs (Past 12 Hours) Vital Signs Temp Pulse Pulse Resp BP BP Pulse Ox 12/27/23 07:23 76 27 H 97 12/27/23 06:15 116/68 12/27/23 06:15 37.3 C 75 26 H 95 12/27/23 06:00 106/62 12/27/23 06:00 37.4 C 74 26 H 93 12/27/23 06:00 12/27/23 05:45 111/67 12/27/23 05:45 37.5 C 75 26 H 93 12/27/23 05:30 37.5 C 77 26 H 93 12/27/23 05:30 95/63 L 12/27/23 05:15 37.5 C 78 26 H 92 12/27/23 05:09 37.5 C 78 26 H 92 12/27/23 05:09 88/56 L 12/27/23 05:07 37.5 C 80 26 H 92 12/27/23 05:05 37.5 C 79 26 H 93 12/27/23 05:03 88 27 H 92 12/27/23 05:02 37.5 C 81 26 H 12/27/23 05:01 37.5 C 81 26 H 12/27/23 05:00 37.5 C 81 26 H 93 12/27/23 04:49 91/53 L 12/27/23 04:49 37.4 C 80 26 H 12/27/23 04:30 37.2 C 79 26 H 95 12/27/23 04:16 90/57 L 12/27/23 04:16 37.2 C 72 26 H 95 12/27/23 04:10 37.2 C 73 26 H 94 12/27/23 04:10 93/53 L 12/27/23 04:01 37.2 C 72 26 H 12/27/23 04:00 37.2 C 73 26 H 95 12/27/23 04:00 12/27/23 03:46 37.2 C 73 26 H 12/27/23 03:31 97/71 L 12/27/23 03:31 37.3 C 73 26 H 93 12/27/23 03:30 37.3 C 74 26 H 95 12/27/23 03:20 75 27 H 94 12/27/23 03:16 37.4 C 72 26 H 12/27/23 03:16 93/57 L 12/27/23 03:11 91/58 L 12/27/23 03:11 37.4 C 73 26 H 94 12/27/23 03:01 37.4 C 75 26 H 12/27/23 03:00 37.3 C 76 26 H 94 12/27/23 02:46 85/57 L 12/27/23 02:46 37.3 C 78 26 H 12/27/23 02:31 118/63 12/27/23 02:31 37.2 C 79 26 H 12/27/23 02:30 37.2 C 78 23 97 12/27/23 02:16 37.2 C 75 26 H 12/27/23 02:16 105/63 95 12/27/23 02:00 12/27/23 02:00 37.2 C 75 26 H 101/62 94 12/27/23 00:31 94 12/27/23 00:31 37.3 C 77 26 H 12/27/23 00:30 37.4 C 78 23 94 12/27/23 00:16 37.5 C 78 26 H 12/27/23 00:16 90/62 L 12/27/23 00:05 12/27/23 00:01 37.6 C H 80 23 12/27/23 00:00 37.5 C 80 23 93 12/26/23 23:59 80 12/26/23 23:55 85/58 L 12/26/23 23:55 37.6 C H 79 26 H 12/26/23 23:46 37.6 C H 80 26 H 12/26/23 23:40 93/60 L 12/26/23 23:40 37.5 C 82 26 H 92 12/26/23 23:35 37.5 C 83 26 H 92 12/26/23 23:32 37.5 C 85 26 H 91/60 L 94 12/26/23 23:31 37.5 C 84 26 H 12/26/23 23:30 37.5 C 85 26 H 92 12/26/23 23:22 26 H 12/26/23 23:16 37.3 C 87 26 H 94 12/26/23 23:16 103/65 12/26/23 23:14 111/72 12/26/23 23:14 37.3 C 82 24 92 12/26/23 23:00 37.1 C 86 28 H 97 12/26/23 22:31 106/66 12/26/23 22:31 37.1 C 78 26 H 12/26/23 22:30 37.1 C 79 26 H 95 12/26/23 22:16 37.0 C 78 26 H 12/26/23 22:16 99/67 L 12/26/23 22:01 37.0 C 78 26 H 12/26/23 22:01 95/65 L 12/26/23 22:00 37.0 C 79 26 H 96 12/26/23 21:46 93/63 L 12/26/23 21:46 37.0 C 78 26 H 12/26/23 21:31 37.0 C 79 26 H 12/26/23 21:31 93/64 L 12/26/23 21:30 37.0 C 80 26 H 96 12/26/23 21:16 90/62 L 12/26/23 21:16 37.0 C 79 26 H 12/26/23 21:01 89/65 L 12/26/23 21:01 37.0 C 79 26 H 12/26/23 21:00 12/26/23 21:00 37.0 C 80 26 H 96 12/26/23 20:46 94/65 L 12/26/23 20:46 37.0 C 79 26 H 12/26/23 20:31 96/64 L 12/26/23 20:31 37.0 C 79 26 H 12/26/23 20:30 37.0 C 79 21 95 12/26/23 20:16 90/63 L 12/26/23 20:00 12/26/23 20:00 12/26/23 19:39 80 26 H 96 Pulse Ox O2 Del Method O2 Del Method FiO2 12/27/23 07:23 40 12/27/23 06:15 Mechanical Vent 40 12/27/23 06:15 12/27/23 06:00 12/27/23 06:00 Mechanical Vent 40 12/27/23 06:00 40 12/27/23 05:45 12/27/23 05:45 12/27/23 05:30 Mechanical Vent 40 12/27/23 05:30 12/27/23 05:15 12/27/23 05:09 Mechanical Vent 40 12/27/23 05:09 12/27/23 05:07 12/27/23 05:05 Mechanical Vent 40 12/27/23 05:03 40 12/27/23 05:02 12/27/23 05:01 12/27/23 05:00 Mechanical Vent 40 12/27/23 04:49 12/27/23 04:49 12/27/23 04:30 12/27/23 04:16 12/27/23 04:16 Mechanical Vent 40 12/27/23 04:10 12/27/23 04:10 12/27/23 04:01 12/27/23 04:00 Mechanical Vent 40 12/27/23 04:00 40 12/27/23 03:46 12/27/23 03:31 12/27/23 03:31 Mechanical Vent 40 12/27/23 03:30 12/27/23 03:20 40 12/27/23 03:16 12/27/23 03:16 12/27/23 03:11 12/27/23 03:11 Mechanical Vent 40 12/27/23 03:01 12/27/23 03:00 Mechanical Vent 40 12/27/23 02:46 12/27/23 02:46 12/27/23 02:31 12/27/23 02:31 12/27/23 02:30 Mechanical Vent 40 12/27/23 02:16 12/27/23 02:16 Mechanical Vent 40 12/27/23 02:00 40 12/27/23 02:00 Mechanical Vent 40 12/27/23 00:31 Mechanical Vent 12/27/23 00:31 12/27/23 00:30 12/27/23 00:16 12/27/23 00:16 12/27/23 00:05 40 12/27/23 00:01 12/27/23 00:00 Mechanical Vent 12/26/23 23:59 12/26/23 23:55 12/26/23 23:55 12/26/23 23:46 12/26/23 23:40 12/26/23 23:40 Mechanical Vent 12/26/23 23:35 12/26/23 23:32 Mechanical Vent 12/26/23 23:31 12/26/23 23:30 12/26/23 23:22 40 12/26/23 23:16 Mechanical Vent 12/26/23 23:16 12/26/23 23:14 12/26/23 23:14 12/26/23 23:00 Mechanical Vent 12/26/23 22:31 12/26/23 22:31 12/26/23 22:30 Mechanical Vent 12/26/23 22:16 12/26/23 22:16 12/26/23 22:01 12/26/23 22:01 12/26/23 22:00 Mechanical Vent 12/26/23 21:46 12/26/23 21:46 12/26/23 21:31 12/26/23 21:31 12/26/23 21:30 Mechanical Vent 12/26/23 21:16 12/26/23 21:16 12/26/23 21:01 12/26/23 21:01 12/26/23 21:00 50 12/26/23 21:00 Mechanical Vent 12/26/23 20:46 12/26/23 20:46 12/26/23 20:31 12/26/23 20:31 12/26/23 20:30 Mechanical Vent 12/26/23 20:16 12/26/23 20:00 Mechanical Vent 12/26/23 20:00 94 Mechanical Vent 12/26/23 19:39 50 Critical Care Results & Data Vital Signs (Past 12 Hours) Vital Signs Temp Pulse Pulse Resp BP BP Pulse Ox 12/27/23 07:23 76 27 H 97 12/27/23 06:15 116/68 12/27/23 06:15 37.3 C 75 26 H 95 12/27/23 06:00 106/62 12/27/23 06:00 37.4 C 74 26 H 93 12/27/23 06:00 12/27/23 05:45 111/67 12/27/23 05:45 37.5 C 75 26 H 93 12/27/23 05:30 37.5 C 77 26 H 93 12/27/23 05:30 95/63 L 12/27/23 05:15 37.5 C 78 26 H 92 12/27/23 05:09 37.5 C 78 26 H 92 12/27/23 05:09 88/56 L 12/27/23 05:07 37.5 C 80 26 H 92 12/27/23 05:05 37.5 C 79 26 H 93 12/27/23 05:03 88 27 H 92 12/27/23 05:02 37.5 C 81 26 H 12/27/23 05:01 37.5 C 81 26 H 12/27/23 05:00 37.5 C 81 26 H 93 12/27/23 04:49 91/53 L 12/27/23 04:49 37.4 C 80 26 H 12/27/23 04:30 37.2 C 79 26 H 95 12/27/23 04:16 90/57 L 12/27/23 04:16 37.2 C 72 26 H 95 12/27/23 04:10 37.2 C 73 26 H 94 12/27/23 04:10 93/53 L 12/27/23 04:01 37.2 C 72 26 H 12/27/23 04:00 37.2 C 73 26 H 95 12/27/23 04:00 12/27/23 03:46 37.2 C 73 26 H 12/27/23 03:31 97/71 L 12/27/23 03:31 37.3 C 73 26 H 93 12/27/23 03:30 37.3 C 74 26 H 95 12/27/23 03:20 75 27 H 94 12/27/23 03:16 37.4 C 72 26 H 12/27/23 03:16 93/57 L 12/27/23 03:11 91/58 L 12/27/23 03:11 37.4 C 73 26 H 94 12/27/23 03:01 37.4 C 75 26 H 12/27/23 03:00 37.3 C 76 26 H 94 12/27/23 02:46 85/57 L 12/27/23 02:46 37.3 C 78 26 H 12/27/23 02:31 118/63 12/27/23 02:31 37.2 C 79 26 H 12/27/23 02:30 37.2 C 78 23 97 12/27/23 02:16 37.2 C 75 26 H 12/27/23 02:16 105/63 95 12/27/23 02:00 12/27/23 02:00 37.2 C 75 26 H 101/62 94 12/27/23 00:31 94 12/27/23 00:31 37.3 C 77 26 H 12/27/23 00:30 37.4 C 78 23 94 12/27/23 00:16 37.5 C 78 26 H 12/27/23 00:16 90/62 L 12/27/23 00:05 12/27/23 00:01 37.6 C H 80 23 12/27/23 00:00 37.5 C 80 23 93 12/26/23 23:59 80 12/26/23 23:55 85/58 L 12/26/23 23:55 37.6 C H 79 26 H 12/26/23 23:46 37.6 C H 80 26 H 12/26/23 23:40 93/60 L 12/26/23 23:40 37.5 C 82 26 H 92 12/26/23 23:35 37.5 C 83 26 H 92 12/26/23 23:32 37.5 C 85 26 H 91/60 L 94 12/26/23 23:31 37.5 C 84 26 H 12/26/23 23:30 37.5 C 85 26 H 92 12/26/23 23:22 26 H 12/26/23 23:16 37.3 C 87 26 H 94 12/26/23 23:16 103/65 12/26/23 23:14 111/72 12/26/23 23:14 37.3 C 82 24 92 12/26/23 23:00 37.1 C 86 28 H 97 12/26/23 22:31 106/66 12/26/23 22:31 37.1 C 78 26 H 12/26/23 22:30 37.1 C 79 26 H 95 12/26/23 22:16 37.0 C 78 26 H 12/26/23 22:16 99/67 L 12/26/23 22:01 37.0 C 78 26 H 12/26/23 22:01 95/65 L 12/26/23 22:00 37.0 C 79 26 H 96 12/26/23 21:46 93/63 L 12/26/23 21:46 37.0 C 78 26 H 12/26/23 21:31 37.0 C 79 26 H 12/26/23 21:31 93/64 L 12/26/23 21:30 37.0 C 80 26 H 96 12/26/23 21:16 90/62 L 12/26/23 21:16 37.0 C 79 26 H 12/26/23 21:01 89/65 L 12/26/23 21:01 37.0 C 79 26 H 12/26/23 21:00 12/26/23 21:00 37.0 C 80 26 H 96 12/26/23 20:46 94/65 L 12/26/23 20:46 37.0 C 79 26 H 12/26/23 20:31 96/64 L 12/26/23 20:31 37.0 C 79 26 H 12/26/23 20:30 37.0 C 79 21 95 12/26/23 20:16 90/63 L O2 Del Method FiO2 12/27/23 07:23 40 12/27/23 06:15 Mechanical Vent 40 12/27/23 06:15 12/27/23 06:00 12/27/23 06:00 Mechanical Vent 40 12/27/23 06:00 40 12/27/23 05:45 12/27/23 05:45 12/27/23 05:30 Mechanical Vent 40 12/27/23 05:30 12/27/23 05:15 12/27/23 05:09 Mechanical Vent 40 12/27/23 05:09 12/27/23 05:07 12/27/23 05:05 Mechanical Vent 40 12/27/23 05:03 40 12/27/23 05:02 12/27/23 05:01 12/27/23 05:00 Mechanical Vent 40 12/27/23 04:49 12/27/23 04:49 12/27/23 04:30 12/27/23 04:16 12/27/23 04:16 Mechanical Vent 40 12/27/23 04:10 12/27/23 04:10 12/27/23 04:01 12/27/23 04:00 Mechanical Vent 40 12/27/23 04:00 40 12/27/23 03:46 12/27/23 03:31 12/27/23 03:31 Mechanical Vent 40 12/27/23 03:30 12/27/23 03:20 40 12/27/23 03:16 12/27/23 03:16 12/27/23 03:11 12/27/23 03:11 Mechanical Vent 40 12/27/23 03:01 12/27/23 03:00 Mechanical Vent 40 12/27/23 02:46 12/27/23 02:46 12/27/23 02:31 12/27/23 02:31 12/27/23 02:30 Mechanical Vent 40 12/27/23 02:16 12/27/23 02:16 Mechanical Vent 40 12/27/23 02:00 40 12/27/23 02:00 Mechanical Vent 40 12/27/23 00:31 Mechanical Vent 12/27/23 00:31 12/27/23 00:30 12/27/23 00:16 12/27/23 00:16 12/27/23 00:05 40 12/27/23 00:01 12/27/23 00:00 Mechanical Vent 12/26/23 23:59 12/26/23 23:55 12/26/23 23:55 12/26/23 23:46 12/26/23 23:40 12/26/23 23:40 Mechanical Vent 12/26/23 23:35 12/26/23 23:32 Mechanical Vent 12/26/23 23:31 12/26/23 23:30 12/26/23 23:22 40 12/26/23 23:16 Mechanical Vent 12/26/23 23:16 12/26/23 23:14 12/26/23 23:14 12/26/23 23:00 Mechanical Vent 12/26/23 22:31 12/26/23 22:31 12/26/23 22:30 Mechanical Vent 12/26/23 22:16 12/26/23 22:16 12/26/23 22:01 12/26/23 22:01 12/26/23 22:00 Mechanical Vent 12/26/23 21:46 12/26/23 21:46 12/26/23 21:31 12/26/23 21:31 12/26/23 21:30 Mechanical Vent 12/26/23 21:16 12/26/23 21:16 12/26/23 21:01 12/26/23 21:01 12/26/23 21:00 50 12/26/23 21:00 Mechanical Vent 12/26/23 20:46 12/26/23 20:46 12/26/23 20:31 12/26/23 20:31 12/26/23 20:30 Mechanical Vent 12/26/23 20:16 Lab & Micro Results (Past 24 Hours) RBC 5.29 M/uL (4.70-6.10) 12/27/23 WBC 16.30 K/ul (4.8-10.8) H 12/27/23 Hgb 13.6 g/dl (14.0-18.0) L 12/27/23 Hct 42.4 % (42.0-52.0) 12/27/23 MCV 80.2 fL (80.0-100.0) 12/27/23 MCH 25.7 pg (25.0-34.0) 12/27/23 MCHC 32.1 g/dL (32.0-36.0) 12/27/23 RDW Standard Deviation 56.0 fL (36.4-46.3) H 12/27/23 RDW Coefficient of Variation 20.3 % (11.5-14.5) H 12/27/23 Plt Count 335 K/uL (130-400) 12/27/23 MPV 10.2 fL (9.4-12.4) 12/27/23 Neutrophils (%) (Auto) 71.5 % 12/27/23 Lymphocytes (%) (Auto) 17.5 % 12/27/23 Monocytes # (Auto) 0.84 K/uL (0.11-0.59) H 12/27/23 Eosinophils # (Auto) 0.50 K/uL (0.00-0.50) 12/27/23 Immature Granulocyte % (Auto) 2.1 % 12/27/23 Neutrophils # (Auto) 11.68 K/uL (1.40-6.50) H 12/27/23 Lymphocytes # (Auto) 2.85 K/uL (1.20-3.40) 12/27/23 Monocytes # (Auto) 0.84 K/uL (0.11-0.59) H 12/27/23 Eosinophils # (Auto) 0.50 K/uL (0.00-0.50) 12/27/23 Basophils # (Auto) 0.09 K/uL (0.00-0.20) 12/27/23 Immature Granulocyte # (Auto) 0.34 K/uL (0.01-0.20) H 12/26 Polychromasia 1+ 12/27/23 Anisocytosis Present 12/27/23 Na 133 mmol/L (136-145) L 12/27/23 K 3.5 mmol/L (3.5-5.1) 12/27/23 Cl 95 mmol/L (98-107) L 12/27/23 CO2 31 mmol/L (21-32) 12/27/23 Anion Gap 7 (3-11) 12/27/23 BUN 15 mg/dl (6-23) 12/27/23 Creatinine 1.35 mg/dl (0.6-1.4) 12/27/23 Estimated GFR ( Amer) 69.0 ml/min 12/27/23 Estimated GFR (Non-Af Amer) 59.5 ml/min 12/27/23 BUN/Creatinine Ratio 11.1 (10-20) 12/27/23 Glu 218 mg/dl (70-99(Fasting)) H 12/27/23 Ca 8.9 mg/dl (8.6-10.3) 12/27/23 Phosphorus Level 1.9 mg/dl (2.5-4.9) L 12/27/23 Total Bilirubin 0.5 mg/dl (0.2-1.0) 12/27/23 AST 16 U/L (13-39) 12/27/23 ALT 14 U/L (7-52) 12/27/23 Alkaline Phosphatase 110 U/L (34-104) H 12/27/23 TP 6.3 gm/dl (6.0-8.3) 12/27/23 Albumin 3.1 gm/dl (3.4-5.0) L 12/27/23 Globulin 3.2 gm/dl (2.5-4.0) 12/27/23 Albumin/Globulin Ratio 1.0 (0.9-2) 12/27/23 Mg 1.9 mg/dl (1.7-2.4) 12/27/23 03:23 Calcium Level 8.9 mg/dl (8.6-10.3) 12/27/23 03:23 Prothromb Time International Ratio 2.6 (0.9-1.1) H 12/27/23 03 :23 Mariano Test Pass 12/27/23 09:49 Microbiology 12/25/23 21:36 Urine Culture - Preliminary Urine,Clean Catch Gram negative bacilli Diagnostic Findings (Past 24 Hours) Chest X-Ray 12/25/23 21:06 XR chest 1V portable CLINICAL HISTORY: syncope TECHNIQUE: Single frontal radiograph of the chest was obtained. Comparison: Comparison is made to chest radiograph 12/06/2023 FINDINGS: Stable loop recorder. The cardiomediastinal silhouette is stable. The lungs are clear. No evidence of pleural effusion or pneumothorax. IMPRESSION: No acute chest disease. ACT 112: Negative or not required by law. Electronically signed by: Armand Tobar M.D. 12/26/2023 8:13 AM Abdomen/Pelvis CT 12/26/23 13:03 CT abd pelvis IV con only CLINICAL HISTORY: recurrent UTIs, abdominal pain TECHNIQUE: Helical axial images of the abdomen and pelvis were obtained and displayed. Automated dose lowering techniques and/or adjustment according to patient size were utilized for this exam. This exam was performed with intravenous contrast. CT DOSE: 1855.37 mGy.cm COMPARISON: Comparison is made to CT abdomen pelvis 07/20/2023 FINDINGS: Lower chest: Bibasilar atelectasis versus scarring is seen. Liver: Hepatic steatosis is noted. Gallbladder and biliary tree: The gallbladder is contracted. No intra- or extrahepatic biliary ductal dilation. Pancreas: Fatty replacement of the pancreas is seen. Spleen: Unremarkable. Adrenals: Unremarkable. Kidneys and ureters: Nonobstructive nephrolithiasis is seen. A right renal cyst is seen. Bladder: Lloyd catheter is seen. Reproductive organs: Unremarkable. Bowel: Patient is status post appendectomy. Lymph nodes Retroperitoneal: Unremarkable. Pelvic: Unremarkable. Mesenteric: Unremarkable. Peritoneum: Normal. Vessels: Unremarkable. Abdominal wall: Bilateral fat-containing inguinal hernias are seen. Bones: Mild degenerative changes are seen. IMPRESSION: 1. No acute abnormality. No CT evidence of ascending infection in this patient with recurrent UTIs. Nonobstructive nephrolithiasis is seen on the right. 2. Hepatic steatosis. ACT 112: Negative or not required by law. Electronically signed by: Armand Tobar M.D. 12/26/2023 3:25 PM Chest X-Ray 12/26/23 14:08 XR chest 1V portable CLINICAL HISTORY: hypoxia TECHNIQUE: Single frontal radiograph of the chest was obtained. Comparison: Comparison is made to chest radiograph 12/25/2023 FINDINGS: Endotracheal tube terminates 3.4 cm from the jenna. An enteric tube tip and side-port appear to lie below the diaphragm although evaluation is limited by underpenetration. Battery-powered device projects over the chest wall. Cardiomegaly is noted. The lungs are clear. No evidence of pleural effusion or pneumothorax. IMPRESSION: No acute abnormalities and in particular no radiographic evidence of pneumonia. ACT 112: Negative or not required by law. Electronically signed by: Armand Tobar M.D. 12/26/2023 3:46 PM I & O Totals 24 Hours 12/26/23 12/27/23 12/28/23 06:59 06:59 06:59 Intake Total 800 / 800 1113.996 / 1113.996 Output Total 2590 / 2590 Balance 800 / 800 -1476.004 / -1476.004 Cumulative 12/25/23 20:02 thru 12/27/23 06:57 Intake Total 1913.996 Output Total 2590 Balance -676.004 RT Ventilator Mngmt (Last Documented) Ventilator Ordered Settings Ventilator Support Mode Assist Control 12/27/23 07:23 Respiratory Rate 27 12/27/23 07:23 Ventilator Tidal Volume 500 12/27/23 07:23 Setting Minute Ventilation 13.0 12/27/23 07:23 Positive End Expiratory 12 12/27/23 07:23 Pressure Fraction of Inspired Oxygen 40 12/27/23 07:23 Peak Inspiratory Flow 38 12/27/23 07:23 Machine Comment TV increased by Ba ROWE 12/27/23 05:03 CCM per VBG result Ventilator - PT Measurements Respiratory Rate 27 Exhaled Tidal Volume 500 Minute Ventilation 13.0 Peak Inspiratory Airway 30 Pressure Plateau Pressure 23.0 Respiratory Cycle Inspiratory: 1:1.9 Expiratory Ratio Inspiratory Phase Time 0.80 End-Tidal CO2 30 Static Lung Compliance 45.45 Dynamic Lung Compliance 27.78 Normal Static Lung Compliance 47.00 Patient Measurements Comment Placed on vent upon arrival from ED (post code purple/inubated from CT) Coding Level of Care Code 15865 CRITICAL CARE 1ST 30-74M Diagnoses Acute on chronic respiratory failure with hypoxia and hypercapnia J96.21; J96.22 Obesity hypoventilation syndrome E66.2 Pulmonary edema J81.1 Acute UTI N39.0
[2023-12-27] MEDS ORDERED: Nursing to Pharmacy Communication SCH (07:45)
[2023-12-27] MEDS: INSULIN ASPART PER UNIT CHARGE SC SCH (08:05)
--- NOTE | 2023-12-27 08:06 | XRay Report ---
XR chest 1V portable CLINICAL HISTORY: resp failure TECHNIQUE: Single frontal radiograph of the chest was obtained. Comparison: Comparison is made to chest radiograph 12/26/2023 FINDINGS: Endotracheal tube terminates 4.5 cm from the jenna. Chest wall device is noted. Cardiomegaly is note d. The lungs are clear. No evidence of pleural effusion or pneumothorax. Prominent left extrapleural fat is seen. IMPRESSION: Satisfactory position of endotracheal tube. Stable cardiomegaly. ACT 112: Negative or not required by law. Electronically signed by: Armand Tobar M.D. 12/27/2023 8:04 AM
[2023-12-27 10:04] LABS: iSTAT Allen Test Pass; iSTAT Art Bld Gas pCO2 Correct 35 mmHg (35-46); iSTAT Art Bld Gas pH Corrected 7.507 (7.35-7.45); iSTAT Arterial Blood Gas HCO3 28 meg/L (19-24); iSTAT Arterial Blood Gas pCO2 34 mmHg (35-46); iSTAT Arterial Blood Gas pH 7.52 (7.35-7.45); iSTAT Arterial Blood Gas pO2 76 mmHg (80-95); iSTAT Arterial Blood Gas pO2 C 79; iSTAT Carbon Dioxide 29 mmol/L (24-31); iSTAT FiO2 40 %; iSTAT Hematocrit 38 % (42-52); iSTAT Hemoglobin 12.9 g/dl (14.0-18.0); iSTAT Potassium 3.5 mmol/L (3.3-5.0); iSTAT Site R Radial; iSTAT Sodium 132 mmol/L (135-144)
[2023-12-27] MEDS: FUROSEMIDE 40 MG/4 ML VIAL IV STA (10:44)
--- NOTE | 2023-12-27 14:35 | Infectious Disease Consult ---
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 unit/gram topical 1 applic topical TID PRN Skin 12/09/18 12/25/23 01/30/20 powder Irritation polyethylene glycol 3350 17 gram 17 g PO QAM PRN Constipation 12/09/18 12/25/23 07/19/23 oral powder packet (Miralax) finasteride 5 mg tablet 5 mg PO QAM 03/03/19 12/25/23 12/25/23 docusate sodium 100 mg capsule 100 mg PO BID PRN Constipation 08/11/19 12/25/23 07/19/23 folic acid 1 mg tablet 1 mg PO QAM 12/07/19 12/25/23 12/25/23 sennosides 8.6 mg tablet (senna) 8.6 mg PO DAILY PRN Constipation 12/07/19 12/25/23 02/27/21 duloxetine 60 mg capsule,delayed 60 mg PO DAILY 07/05/20 12/25/23 12/25/23 release famotidine 20 mg tablet 20 mg PO DAILY 07/05/20 12/25/23 12/25/23 glipizide 10 mg tablet 10 mg PO BID 01/12/21 12/25/23 12/25/23 08:00 ferrous sulfate 325 mg (65 mg 325 mg PO QAM 10/24/21 12/25/23 12/25/23 iron) tablet hydroxyzine HCl 25 mg tablet 25 mg PO QID PRN Anxiety 10/24/21 12/25/23 Unknown urea 20 % topical cream 1 applic topical BID Dry Areas on 10/24/21 12/25/23 12/25/23 08:00 (Ureacin-20) S[place] [employer] [place] insulin aspart U-100 100 unit/mL 0 sliding scale dose subcut TIDM 04/07/23 12/25/23 12/25/23 (3 mL) subcutaneous pen (Novolog FlexPen U-100 Insulin aspart) buprenorphine HCl 8 mg sublingual See Rx Instructions .Route .COMPLEX 05/04/23 12/25/23 12/25/23 tablet fluticasone propionate 93 2 spray intranasal DAILY 08/22/23 12/25/23 12/25/23 mcg/actuation breath activated aerosol ipratropium 0.5 mg-albuterol 3 mg 3 ml inhalation TID 08/22/23 12/25/23 12/25/23 (2.5 mg base)/3 mL nebulization soln atorvastatin 80 mg tablet 80 mg PO QAM #30 tabs 01/07/24 04/06/24 04/06/24 metoprolol succinate 50 mg 75 mg (1.5 x 50 mg) PO BID 30 days 09/26/23 12/25/23 12/25/23 08:00 tablet,extended release 24 hr #180 tabs tamsulosin 0.4 mg capsule (Flomax) 0.8 mg (2 x 0.4 mg) PO QAM #180 09/26/23 12/25/23 12/25/23 caps isosorbide dinitrate 30 mg tablet 30 mg PO DAILY #30 tabs 10/11/23 12/25/23 12/25/23 warfarin 2 mg tablet See Rx Instructions .Route .COMPLEX 11/22/23 12/25/23 12/24/23 albuterol sulfate 90 mcg/actuation 2 puff inhalation Q4 PRN Dyspnea 11/26/23 12/25/23 Unknown aerosol inhaler 30 days #1 inh budesonide 0.5 mg/2 mL suspension 0.5 mg (2 mL) inhalation Q12H 30 11/26/23 12/25/23 12/25/23 08:00 for nebulization days #60 mL cyclobenzaprine 10 mg tablet 10 mg PO BID PRN Muscle Spasm #15 11/26/23 12/25/23 Unknown tabs fluticasone 250 mcg-salmeterol 50 1 inh inhalation BID 30 days #1 ea 11/26/23 12/25/23 12/25/23 08:00 mcg/dose blistr powdr for inhalation (Advair Diskus) gabapentin 800 mg tablet 800 mg PO TID #42 tabs 11/26/23 12/25/23 12/25/23 insulin glargine 100 unit/mL 50 unit (0.5 mL) SC HS 30 days #15 11/26/23 12/25/23 12/24/23 subcutaneous solution (Lantus mL U-100 Insulin) omeprazole 20 mg capsule,delayed 20 mg PO DAILYBB 30 days #30 caps 11/26/23 12/25/23 12/25/23 release ondansetron HCl 4 mg tablet 4 mg PO Q8H PRN NAUSEA/VOMITING 11/26/23 12/25/23 Unknown #12 tabs Lactobacillus acidophilus 1 tab PO DAILY 12/25/23 12/25/2312/24/24 dextromethorphan-guaifenesin 30 1 tab PO Q12H PRN Cough 12/25/23 12/25/23 Unknown mg-600 mg tablet extended xohidfp12 hr (Mucinex DM) magnesium oxide 400 mg (241.3 mg 400 mg PO QAM 12/25/23 12/25/23 12/25/23 magnesium) tablet potassium chloride 20 mEq 20 meq PO BID 12/25/23 12/25/23 12/25/23 08:00 tablet,extended release(part/cryst) spironolactone 25 mg tablet 25 mg PO QAM 12/25/23 12/25/23 12/25/23 torsemide 100 mg tablet 50 mg PO DAILY 12/25/23 12/25/23 12/25/23 Active Medications Generic Name Dose Route Start Last Admin Trade Name Freq PRN Reason Stop Dose Admin Aspirin 81 mg 12/26/23 09:00 12/27/23 07:48 Aspirin 81 Mg Ectab PO 01/25/24 08:59 Not Given QAM EMPERATRIZ Atorvastatin Calcium 80 mg 12/26/23 09:00 12/27/23 08:49 Atorvastatin 40 Mg Tab PO 01/25/24 08:59 80 mg QAM EMPERATRIZ Administration Budesonide 0.5 mg 12/26/23 07:00 12/27/23 07:21 Budesonide 0.5 Mg/2 Ml Vial (Pulmicort) INH 01/25/24 06:59 0.5 mg BIDR EMPERATRIZ Administration Duloxetine HCl 60 mg 12/26/23 09:00 12/27/23 07:48 Duloxetine Hcl 60 Mg Cap PO 01/25/24 08:59 Not Given DAILY EMPERATRIZ Famotidine 20 mg 12/26/23 09:00 12/27/23 08:50 Famotidine 20 Mg Tab PO 01/25/24 08:59 20 mg DAILY EMPERATRIZ Administration Fentanyl Citrate 50 mcg 12/26/23 16:06 12/27/23 13:05 Fentanyl Bolus From Bag IV 01/09/24 16:05 50 mcg Q60M PRN Administration Pain or Agitation Ferrous Sulfate 325 mg 12/26/23 09:00 12/27/23 07:48 Ferrous Sulfate 325 Mg Tab PO 01/25/24 08:59 Not Given QAM EMPERATRIZ Finasteride 5 mg 12/26/23 09:00 12/27/23 08:49 Finasteride 5 Mg Tab PO 01/25/24 08:59 5 mg QAM EMPERATRIZ Administration Fluticasone Propionate 2 sprays 12/26/23 09:00 12/27/23 08:46 Fluticasone Propionate Na Spr 16 Gm Btl NA 01/25/24 08:59 2 sprays DAILY EMPERATRIZ Administration Folic Acid 1 mg 12/26/23 09:00 12/27/23 08:49 Folic Acid 1 Mg Tab PO 01/25/24 08:59 1 mg QAM EMPERATRIZ Administration Furosemide 40 mg 12/26/23 21:00 12/27/23 08:46 Furosemide 40 Mg/4 Ml Vial IV 01/25/24 20:59 40 mg BID EMPERATRIZ Administration Gabapentin 800 mg 12/26/23 09:00 12/27/23 13:04 Gabapentin 800 Mg Tab PO 01/25/24 08:59 Not Given TID EMPERATRIZ Promethazine HCl 12.5 mg/ 50.5 mls @ 202 mls/hr 12/26/23 00:24 12/26/23 11:05 Sodium Chloride IV 01/25/24 00:23 Infused Q6H PRN Infusion Nausea And Vomiting Aztreonam 2,000 mg/ Dextrose 100 mls @ 100 mls/hr 12/26/23 08:00 12/27/23 09:49 IV 01/05/24 07:59 Infused Q8H EMPERATRIZ Infusion Propofol 1,000 mg in 100 mls @ 50.571 mls/hr 12/26/23 15:00 12/27/23 13:33 Diprivan IV 12/29/23 14:59 45 mcg/kg/min .Q1H59M EMPERATRIZ 50.6 mls/hr Administration Protocol 45 MCG/KG/MIN Fentanyl Citrate 2,500 mcg in 250 mls @ 15 mls/hr 12/26/23 16:15 12/27/23 10:12 Fentanyl Citrate IV 01/09/24 16:14 150 mcg/hr .[id number] EMPERATRIZ 15 mls/hr Titration Protocol 150 MCG/HR Insulin Aspart 0 units 12/27/23 07:45 12/27/23 11:08 Insulin Aspart Per Unit Charge SC 01/25/24 07:29 4 units Q6 EMPERATRIZ Administration Insulin Glargine 50 units 12/26/23 21:00 12/26/23 20:41 Lantus Per Unit Charge SC 01/25/24 20:59 50 units HS EMPERATRIZ Administration Isosorbide Dinitrate 30 mg 12/26/23 09:00 12/27/23 08:47 Isosorbide Dinitrate 20 Mg Tab PO 01/25/24 08:59 30 mg DAILY EMPERATRIZ Administration Lactobacillus Acidophilus 1,250 mg 12/26/23 09:00 12/27/23 08:47 Advanced Probiotic 625 Mg Capsule PO 01/25/24 08:59 1,250 mg DAILY EMPERATRIZ Administration Metoprolol Succinate 75 mg 12/26/23 09:00 12/27/23 07:50 Metoprolol Succ 25mg Ext Rel Tab PO 01/25/24 08:59 Not Given BID EMPERATRIZ Miscellaneous 1 each 12/26/23 08:59 12/27/23 08:47 Remove Nicoderm Patch N/A 01/25/24 08:58 1 each DAILY@0859 EMPERATRIZ Administration Miscellaneous 1 each 12/26/23 18:00 12/27/23 06:03 Icu Electrolyte Replacement Protocol N/A 01/02/24 17:59 Not Given BID@06,18 [facility] Protocol Nicotine 21 mg 12/26/23 09:00 12/27/23 08:46 Nicotine 21 Mg/24 Hr Tdsy TD 01/25/24 08:59 21 mg QAM EMPERATRIZ Administration Pantoprazole Sodium 40 mg 12/26/23 06:30 12/27/23 07:48 Pantoprazole 40 Mg Tab PO 01/25/24 06:29 Not Given DAILYBB EMPERATRIZ Potassium Chloride 40 meq 12/26/23 09:00 12/27/23 07:50 Potassium Chloride Crtab 20 Meq Tabcr PO 01/25/24 08:59 Not Given BID EMPERATRIZ Propofol 20 mg 12/26/23 14:49 12/27/23 13:34 Propofol Bolus From Bag IV 12/29/23 14:48 20 mg Q5M PRN Administration Sedation Spironolactone 25 mg 12/26/23 09:00 12/27/23 08:47 Spironolactone 25 Mg Tab PO 01/25/24 08:59 25 mg QAM EMPERATRIZ Administration Tamsulosin HCl 0.8 mg 12/26/23 09:00 12/27/23 07:50 Tamsulosin Hcl 0.4 Mg Cap PO 01/25/24 08:59 Not Given QAM EMPERATRIZ (1) Urinary tract infection Urinary tract infection type: site unspecified
--- NOTE | 2023-12-27 14:47 | Hospitalist Progress Note ---
Date of Service December 27, 2023 Assessment & Plan (1) Complicated UTI (urinary tract infection): Plan: Plan Pt is a 53yoM with PMHx significant for chronic diastolic heart failure (EF 60 to 65%, TTE 2022), history CAD/STEMI as per records, history subdural hematoma/subarachnoid hemorrhage as per records (no operative intervention), hypertension, hyperlipidemia, COPD, recurrent PE on Coumadin, DM 2 insulin requiring, recurrent UTIs secondary to BPH/chronic urinary retention indwelling Lloyd catheter, chronic anemia (baseline hemoglobin 12-13), chronic pain on buprenorphine admitted with recurrent UTI and syncopal episode once more. Pt was completing a CT abd/pelvis on 12/25 when he coded in the CT scanner after laying flat. Reportedly was saturating in the 60s and lost color. He was not able to tolerate bipap and was subsequently intubated and transferred to the ICU. He is currently also being treated for the following: Acute on Chronic hypoxic and hypercarbic respiratory failure- currently in the ICU, intubated and sedated. Recurrent UTI- on Aztreonam, urology and ID consulted. Appreciate recs. ID recommending switch to meropenem Syncope- has loop recorder, orthostatic vitals, continue to monitor on telemetry Hypokalemia- replete as needed DVT prophylaxis: On coumadin, INR currently therapeutic Diet: currently NPO Dispo: ICU Admission and Anticipated Discharge Date Admission Date: December 25, 2023 Subjective Pt is intubated and sedated Review of Systems Review of Systems: Unobtainable due to endotracheal tube Physical Exam Physical Exam: HEENT: intubated CV: heart sounds decreased due to body habitus Resp: No increased effort of breathing Abdomen.: protuberant, soft Results & Data Results & Data Vital Signs (Past 12 Hours) Vital Signs Temp Pulse Resp BP Pulse Ox Pulse Ox O2 Del Method 12/27/23 13:30 138/98 12/27/23 13:30 37.5 C 84 20 96 12/27/23 13:29 145/88 H 12/27/23 13:29 37.4 C 83 20 93 12/27/23 13:01 37.3 C 78 20 88 L 12/27/23 13:01 132/87 12/27/23 13:00 37.3 C 80 20 89 L 12/27/23 12:31 37.3 C 75 20 93 12/27/23 12:31 134/87 12/27/23 12:30 37.3 C 76 20 93 12/27/23 12:00 126/86 12/27/23 12:00 37.4 C 75 20 93 12/27/23 11:30 37.6 C H 76 20 92 12/27/23 11:30 106/71 12/27/23 11:01 37.8 C H 79 20 91 12/27/23 11:01 93/70 L 12/27/23 11:00 37.8 C H 79 20 90 12/27/23 10:31 103/62 12/27/23 10:31 37.9 C H 84 20 12/27/23 10:30 37.9 C H 85 20 89 L 12/27/23 10:11 12/27/23 10:00 37.6 C H 87 10 L 98 12/27/23 10:00 80 17 95 12/27/23 09:50 110/50 L 12/27/23 09:50 37.5 C 80 23 12/27/23 09:31 98/57 L 12/27/23 09:31 37.4 C 77 26 H 12/27/23 09:30 37.4 C 78 26 H 90 12/27/23 09:01 125/79 12/27/23 09:01 37.4 C 73 26 H 92 12/27/23 09:00 37.4 C 72 26 H 92 12/27/23 08:30 114/68 12/27/23 08:30 37.6 C H 73 26 H 93 12/27/23 08:08 109/73 12/27/23 08:08 37.5 C 74 26 H 12/27/23 08:01 137/88 12/27/23 08:01 37.6 C H 74 26 H 12/27/23 08:00 37.5 C 76 26 H 96 12/27/23 08:00 12/27/23 08:00 Mechanical Vent 12/27/23 08:00 76 12/27/23 08:00 94 12/27/23 07:46 98/56 L 12/27/23 07:46 37.6 C H 73 26 H 91 12/27/23 07:31 101/46 L 12/27/23 07:31 37.6 C H 74 26 H 92 12/27/23 07:30 37.6 C H 75 26 H 94 12/27/23 07:23 76 27 H 97 12/27/23 07:15 109/63 12/27/23 07:15 37.6 C H 75 26 H 94 12/27/23 07:00 37.5 C 76 26 H 94 12/27/23 06:46 37.4 C 73 26 H 94 12/27/23 06:46 111/72 12/27/23 06:30 116/74 12/27/23 06:30 37.3 C 73 26 H 95 12/27/23 06:15 116/68 Mechanical Vent 12/27/23 06:15 37.3 C 75 26 H 95 12/27/23 06:00 106/62 12/27/23 06:00 37.4 C 74 26 H 93 Mechanical Vent 12/27/23 06:00 12/27/23 05:45 111/67 12/27/23 05:45 37.5 C 75 26 H 93 12/27/23 05:30 37.5 C 77 26 H 93 Mechanical Vent 12/27/23 05:30 95/63 L 12/27/23 05:15 37.5 C 78 26 H 92 12/27/23 05:09 37.5 C 78 26 H 92 Mechanical Vent 12/27/23 05:09 88/56 L 12/27/23 05:07 37.5 C 80 26 H 92 12/27/23 05:05 37.5 C 79 26 H 93 Mechanical Vent 12/27/23 05:03 88 27 H 92 12/27/23 05:02 37.5 C 81 26 H 12/27/23 05:01 37.5 C 81 26 H 12/27/23 05:00 37.5 C 81 26 H 93 Mechanical Vent 12/27/23 04:49 91/53 L 12/27/23 04:49 37.4 C 80 26 H 12/27/23 04:30 37.2 C 79 26 H 95 12/27/23 04:16 90/57 L 12/27/23 04:16 37.2 C 72 26 H 95 Mechanical Vent 12/27/23 04:10 37.2 C 73 26 H 94 12/27/23 04:10 93/53 L 12/27/23 04:01 37.2 C 72 26 H 12/27/23 04:00 37.2 C 73 26 H 95 Mechanical Vent 12/27/23 04:00 12/27/23 03:46 37.2 C 73 26 H 12/27/23 03:31 97/71 L 12/27/23 03:31 37.3 C 73 26 H 93 Mechanical Vent 12/27/23 03:30 37.3 C 74 26 H 95 12/27/23 03:20 75 27 H 94 12/27/23 03:16 37.4 C 72 26 H 12/27/23 03:16 93/57 L 12/27/23 03:11 91/58 L 12/27/23 03:11 37.4 C 73 26 H 94 Mechanical Vent 12/27/23 03:01 37.4 C 75 26 H 12/27/23 03:00 37.3 C 76 26 H 94 Mechanical Vent O2 Del Method FiO2 12/27/23 13:30 12/27/23 13:30 12/27/23 13:29 12/27/23 13:29 12/27/23 13:01 12/27/23 13:01 12/27/23 13:00 12/27/23 12:31 12/27/23 12:31 12/27/23 12:30 12/27/23 12:00 12/27/23 12:00 12/27/23 11:30 12/27/23 11:30 12/27/23 11:01 12/27/23 11:01 12/27/23 11:00 12/27/23 10:31 12/27/23 10:31 12/27/23 10:30 12/27/23 10:11 40 12/27/23 10:00 12/27/23 10:00 40 12/27/23 09:50 12/27/23 09:50 12/27/23 09:31 12/27/23 09:31 12/27/23 09:30 12/27/23 09:01 12/27/23 09:01 12/27/23 09:00 12/27/23 08:30 12/27/23 08:30 12/27/23 08:08 12/27/23 08:08 12/27/23 08:01 12/27/23 08:01 12/27/23 08:00 12/27/23 08:00 40 12/27/23 08:00 12/27/23 08:00 12/27/23 08:00 Mechanical Vent 12/27/23 07:46 12/27/23 07:46 12/27/23 07:31 12/27/23 07:31 12/27/23 07:30 12/27/23 07:23 40 12/27/23 07:15 12/27/23 07:15 12/27/23 07:00 12/27/23 06:46 12/27/23 06:46 12/27/23 06:30 12/27/23 06:30 12/27/23 06:15 40 12/27/23 06:15 12/27/23 06:00 12/27/23 06:00 40 12/27/23 06:00 40 12/27/23 05:45 12/27/23 05:45 12/27/23 05:30 40 12/27/23 05:30 12/27/23 05:15 12/27/23 05:09 40 12/27/23 05:09 12/27/23 05:07 12/27/23 05:05 40 12/27/23 05:03 40 12/27/23 05:02 12/27/23 05:01 12/27/23 05:00 40 12/27/23 04:49 12/27/23 04:49 12/27/23 04:30 12/27/23 04:16 12/27/23 04:16 40 12/27/23 04:10 12/27/23 04:10 12/27/23 04:01 12/27/23 04:00 40 12/27/23 04:00 40 12/27/23 03:46 12/27/23 03:31 12/27/23 03:31 40 12/27/23 03:30 12/27/23 03:20 40 12/27/23 03:16 12/27/23 03:16 12/27/23 03:11 12/27/23 03:11 40 12/27/23 03:01 12/27/23 03:00 40
[2023-12-27] MEDS: MEROPENEM 500 MG in SYRINGE 0 ML IV SCH (16:29)
[2023-12-28 04:59] LABS: Albumin Level 3.1 gm/dl (3.4-5.0); Bilirubin,Total 0.5 mg/dl (0.2-1.0); Calcium 9.1 mg/dl (8.6-10.3); Creatinine Clr Calc Pharmacy 111.2 ml/min; Est GFR (African American) 71.5 ml/min; Est GFR (Non-African American) 61.7 ml/min; Globulin 3.1 gm/dl (2.5-4.0); Phosphorus 3.7 mg/dl (2.5-4.9); Potassium 3.3 mmol/L (3.5-5.1); Total Protein 6.2 gm/dl (6.0-8.3)
[2023-12-28 05:15] LABS: INR 1.9 (0.9-1.1); Prothrombin Time 19.6 Seconds (9.0-12.0)
[2023-12-28 05:24] LABS: Basophils % (auto) 0.6 %; Eosinophils # (auto) 0.55 K/uL (0.00-0.50); Hematocrit (blood only) 38.9 % (42.0-52.0); Hemoglobin 12.3 g/dl (14.0-18.0); Immature Granulocytes # (auto) 0.27 K/uL (0.01-0.20); Immature Granulocytes % (auto) 1.5 %; Lymphocytes # (auto) 2.77 K/uL (1.20-3.40); Lymphocytes % (auto) 15.2 %; Mean Corpuscular Hemoglobin 25.7 pg (25.0-34.0); Mean Corpuscular Hgb Conc 31.6 g/dL (32.0-36.0); Mean Corpuscular Volume 81.2 fL (80.0-100.0); Mean Platelet Volume 10.3 fL (9.4-12.4); Monocytes # (auto) 1.18 K/uL (0.11-0.59); Monocytes % (auto) 6.5 %; Neutrophils # (auto) 13.31 K/uL (1.40-6.50); Neutrophils % (auto) 73.2 %; Platelet Count 287 K/uL (130-400); RDW Coefficient of Variation 20.5 % (11.5-14.5); RDW Standard Deviation 58.4 fL (36.4-46.3); Red Blood Count 4.79 M/uL (4.70-6.10); White Blood Count 18.18 K/ul (4.8-10.8)
--- NOTE | 2023-12-28 05:43 | Electrocardiogram Report ---
Test Reason : Blood Pressure : / mmHG Vent. Rate : 110 BPM Atrial Rate : 110 BPM P-R Int : 198 ms QRS Dur : 120 ms QT Int : 336 ms P-R-T Axes : 092 016 143 degrees QTc Int : 454 ms Sinus tachycardia Possible Left atrial enlargement Right bundle branch block Nonspecific ST abnormality Abnormal ECG When compared with ECG of 25-DEC-2023 21:50, No significant change was found Confirmed by Shaqulile Canales ([id number]) on 12/28/2023 5:42:43 AM Referred By: REFERRED SELF Confirmed By:Shaquille Canales
[2023-12-28 06:01] LABS: Anisocytosis Present; Polychromasia 1+
[2023-12-28 06:36] LABS: iSTAT Allen Test Pass; iSTAT Art Bld Gas pCO2 Correct 46 mmHg (35-46); iSTAT Art Bld Gas pH Corrected 7.422 (7.35-7.45); iSTAT Arterial Blood Gas HCO3 30 meg/L (19-24); iSTAT Arterial Blood Gas pCO2 45 mmHg (35-46); iSTAT Arterial Blood Gas pH 7.43 (7.35-7.45); iSTAT Arterial Blood Gas pO2 65 mmHg (80-95); iSTAT Arterial Blood Gas pO2 C 66; iSTAT Carbon Dioxide 31 mmol/L (24-31); iSTAT FiO2 40 %; iSTAT Hematocrit 36 % (42-52); iSTAT Hemoglobin 12.2 g/dl (14.0-18.0); iSTAT Site R Radial; iSTAT Sodium 134 mmol/L (135-144)
[2023-12-28] MEDS: POTASSIUM CHLORIDE / WTR 10 MEQ/100 ML PLCT IV SCH (07:00)
--- NOTE | 2023-12-28 08:02 | XRay Report ---
XR chest 1V portable HISTORY: Respiratory failure. COMPARISON: Chest 12/27/2023. FINDINGS: Endotracheal tube terminates 3.3 cm from the jenna. Nasogastric tube is difficult to visua lize but appears to terminate below the diaphragm. The tip is not included on this study. There is no rmal, healed left clavicle fracture. No pneumothorax. The heart remains enlarged. Left basilar densit ies persist and favor subsegmental atelectasis or scarring. No pleural effusions. Mild pulmonary vasc ular congestion without overt edema. IMPRESSION: 1. Satisfactory support line placement. 2. Mild cardiomegaly and pulmonary vascular congestion persists. ACT 112: Negative or not required by law. Electronically signed by: Vidal Keller M.D. 12/28/2023 8:01 AM
--- NOTE | 2023-12-28 08:09 | Critical Care Progress Note ---
Date of Service December 28, 2023 Assessment & Plan (1) Acute on chronic respiratory failure with hypoxia and hypercapnia: (2) Obesity hypoventilation syndrome: (3) Pulmonary edema: (4) Acute UTI: Plan Impression: 53-year-old morbidly obese male with acute on chronic hypoxemic and hypercarbic respiratory failure admitted with syncopal episode and urinary tract infection and intubated due to lying flat for a CT scan of the abdomen and pelvis which was unrevealing. Suspect the etiology of his respiratory failure was fluid shifts and exacerbation of his underlying obesity hypoventilation syndrome. Recommendations: 1. Neurologic: Patient has a history of chronic opioid use and is on Suboxone as an outpatient. This may be restarted; fentanyl and propofol used for sedation has been discontinued. 2. Cardiovascular: Hemodynamically stable. Approximately 1.5 L negative yesterday 3. Pulmonary: Acute on chronic hypoxemic and hypercarbic respiratory failure. Continue mechanical ventilator settings. Will increase PEEP. Patient successfully liberated from the ventilator, is able to participate in full conversation without tachypnea. He apparently has never been diagnosed with sleep disordered breathing although he does have chronic baseline hypercarbia and would qualify for noninvasive positive pressure ventilation just based on his resting CO2 levels. Unfortunately in the past he has been reluctant to be compliant with this. The only other alternative would be a tracheostomy. Weight loss is fundamentally required to solve the patient's issues 4. Renal: Mild potassium repletion after diuresis yesterday 5. GI: Advance diet as tolerated 6. Endocrine: Glycemic control per ICU protocol 7. ID: Infectious diseases is following. Urology has signed off. Very extensive history as this Lloyd catheter/chronic colonization/questionable urinary tract infection has been managed during his frequent healthcare encounters 8. Heme-onc: Anticoagulated on Coumadin. Will follow daily. Consider reinitiation of Coumadin for anticoagulation versus direct thrombin inhibitor given antibiotic use Patient has documented history of noncompliance with recommended medical therapies. Patient desiring to leave AGAINST MEDICAL ADVICE at this time. Critical care issues are resolved. Patient appears to have no untoward effects from intubation. No obvious stridor, able to speak in full sentences and participate in lengthy conversation without dyspnea. He is stable for downgrade from the ICU into the care of the hospitalist medicine team who are knowledgeable of the patient's chronic concerns and Allied health needs. Admission and Anticipated Discharge Date Admission Date: December 25, 2023 Subjective Patient passed spontaneous breathing trial and was promptly extubated this morning. Patient's became confrontational, demanding, refusing to comply with requests for patient's safety, demanding to leave AGAINST MEDICAL ADVICE. Patient does appear to be alert and oriented, understands day time place. Understands he had a breathing tube placed for inability to breathe. Demands he be given drinks, and he "will not be treated like this". Questioned what " treated like this" meant and he refers to having a breathing tube placed and being uncomfortable. I informed him he stopped breathing and that necessitated the breathing tube, patient verbalized understanding if breathing tube was not placed he would have . Patient also verbalized in front of staff that if he did not want a breathing tube and he were to have a respiratory arrest again he would ultimately , he reported he was unsure whether he would actually desire a breathing tube placed. Patient began bargaining behavior, would not interact with me nor answer questions opting to solely converse with Dr. Victor. Physical Exam Physical Exam: General: Alert. nontoxic. Skin: Warm, dry, Head: Atraumatic Ears, nose, mouth and throat: airway patent Cardiovascular: Normal peripheral perfusion Respiratory: no respiratory distress Gastrointestinal: Non distended Musculoskeletal: No deformity Results & Data Results & Data Vital Signs (Past 12 Hours) Vital Signs Temp Pulse Pulse Resp BP BP Pulse Ox 12/28/23 07:22 97 H 18 97 12/28/23 07:15 18 12/28/23 06:00 12/28/23 04:54 67 18 93 12/28/23 04:31 130/70 12/28/23 04:31 37.3 C 70 18 95 12/28/23 04:30 37.3 C 71 18 95 12/28/23 04:01 37.4 C 68 18 93 12/28/23 04:01 161/86 H 12/28/23 04:00 37.4 C 67 18 94 12/28/23 04:00 12/28/23 03:31 37.4 C 69 18 94 12/28/23 03:31 165/91 H 12/28/23 03:30 37.4 C 69 18 95 12/28/23 03:01 168/87 H 12/28/23 03:01 37.4 C 69 18 96 12/28/23 03:00 37.4 C 72 18 96 12/28/23 02:31 37.3 C 70 22 96 12/28/23 02:31 157/91 H 12/28/23 02:30 37.3 C 71 18 97 12/28/23 02:01 37.3 C 71 18 97 12/28/23 02:01 166/75 H 12/28/23 02:00 37.3 C 73 18 96 12/28/23 02:00 12/28/23 02:00 37.3 C 72 18 166/75 H 96 12/28/23 01:31 37.3 C 70 18 97 12/28/23 01:31 162/75 H 12/28/23 01:30 37.3 C 73 18 96 12/28/23 01:01 37.3 C 72 18 93 12/28/23 01:01 148/77 H 12/28/23 01:00 37.3 C 74 18 94 12/28/23 00:31 37.2 C 71 18 93 12/28/23 00:31 168/89 H 12/28/23 00:30 37.2 C 73 18 93 12/28/23 00:20 73 12/28/23 00:00 162/96 H 12/28/23 00:00 37.3 C 71 18 95 12/27/23 23:45 12/27/23 23:42 68 19 92 12/27/23 23:30 37.3 C 67 18 93 12/27/23 23:30 133/81 12/27/23 23:01 128/73 12/27/23 23:01 37.3 C 71 18 92 12/27/23 23:00 37.3 C 70 18 91 12/27/23 22:31 37.2 C 71 18 92 12/27/23 22:31 162/88 H 12/27/23 22:30 37.2 C 69 18 91 12/27/23 22:01 37.2 C 70 18 93 12/27/23 22:01 159/86 H 12/27/23 22:00 37.2 C 70 21 92 12/27/23 21:30 145/90 H 12/27/23 21:30 37.3 C 68 18 91 12/27/23 21:01 139/91 12/27/23 21:01 37.3 C 67 18 12/27/23 21:00 37.3 C 67 18 91 12/27/23 20:47 67 18 93 12/27/23 20:31 37.3 C 67 18 92 12/27/23 20:31 139/86 12/27/23 20:30 37.3 C 67 19 91 O2 Del Method FiO2 12/28/23 07:22 Mechanical Vent 12/28/23 07:15 40 12/28/23 06:00 40 12/28/23 04:54 40 12/28/23 04:31 Mechanical Vent 40 12/28/23 04:31 12/28/23 04:30 12/28/23 04:01 Mechanical Vent 40 12/28/23 04:01 12/28/23 04:00 Mechanical Vent 40 12/28/23 04:00 40 12/28/23 03:31 Mechanical Vent 40 12/28/23 03:31 12/28/23 03:30 Mechanical Vent 40 12/28/23 03:01 12/28/23 03:01 12/28/23 03:00 Mechanical Vent 40 12/28/23 02:31 12/28/23 02:31 12/28/23 02:30 Mechanical Vent 40 12/28/23 02:01 Mechanical Vent 40 12/28/23 02:01 12/28/23 02:00 12/28/23 02:00 40 12/28/23 02:00 Mechanical Vent 12/28/23 01:31 12/28/23 01:31 Mechanical Vent 40 12/28/23 01:30 12/28/23 01:01 12/28/23 01:01 12/28/23 01:00 Mechanical Vent 40 12/28/23 00:31 Mechanical Vent 40 12/28/23 00:31 12/28/23 00:30 12/28/23 00:20 12/28/23 00:00 12/28/23 00:00 Mechanical Vent 40 12/27/23 23:45 40 12/27/23 23:42 40 12/27/23 23:30 12/27/23 23:30 12/27/23 23:01 12/27/23 23:01 12/27/23 23:00 Mechanical Vent 40 12/27/23 22:31 12/27/23 22:31 12/27/23 22:30 12/27/23 22:01 Mechanical Vent 40 12/27/23 22:01 12/27/23 22:00 12/27/23 21:30 12/27/23 21:30 Mechanical Vent 40 12/27/23 21:01 12/27/23 21:01 12/27/23 21:00 Mechanical Vent 40 12/27/23 20:47 40 12/27/23 20:31 12/27/23 20:31 12/27/23 20:30 Critical Care Results & Data Vital Signs (Past 12 Hours) Vital Signs Temp Pulse Pulse Resp BP BP Pulse Ox 12/28/23 07:22 97 H 18 97 12/28/23 07:15 18 12/28/23 06:00 12/28/23 04:54 67 18 93 12/28/23 04:31 130/70 12/28/23 04:31 37.3 C 70 18 95 12/28/23 04:30 37.3 C 71 18 95 12/28/23 04:01 37.4 C 68 18 93 12/28/23 04:01 161/86 H 12/28/23 04:00 37.4 C 67 18 94 12/28/23 04:00 12/28/23 03:31 37.4 C 69 18 94 12/28/23 03:31 165/91 H 12/28/23 03:30 37.4 C 69 18 95 12/28/23 03:01 168/87 H 12/28/23 03:01 37.4 C 69 18 96 12/28/23 03:00 37.4 C 72 18 96 12/28/23 02:31 37.3 C 70 22 96 12/28/23 02:31 157/91 H 12/28/23 02:30 37.3 C 71 18 97 12/28/23 02:01 37.3 C 71 18 97 12/28/23 02:01 166/75 H 12/28/23 02:00 37.3 C 73 18 96 12/28/23 02:00 12/28/23 02:00 37.3 C 72 18 166/75 H 96 12/28/23 01:31 37.3 C 70 18 97 12/28/23 01:31 162/75 H 12/28/23 01:30 37.3 C 73 18 96 12/28/23 01:01 37.3 C 72 18 93 12/28/23 01:01 148/77 H 12/28/23 01:00 37.3 C 74 18 94 12/28/23 00:31 37.2 C 71 18 93 12/28/23 00:31 168/89 H 12/28/23 00:30 37.2 C 73 18 93 12/28/23 00:20 73 12/28/23 00:00 162/96 H 12/28/23 00:00 37.3 C 71 18 95 12/27/23 23:45 12/27/23 23:42 68 19 92 12/27/23 23:30 37.3 C 67 18 93 12/27/23 23:30 133/81 12/27/23 23:01 128/73 12/27/23 23:01 37.3 C 71 18 92 12/27/23 23:00 37.3 C 70 18 91 12/27/23 22:31 37.2 C 71 18 92 12/27/23 22:31 162/88 H 12/27/23 22:30 37.2 C 69 18 91 12/27/23 22:01 37.2 C 70 18 93 12/27/23 22:01 159/86 H 12/27/23 22:00 37.2 C 70 21 92 12/27/23 21:30 145/90 H 12/27/23 21:30 37.3 C 68 18 91 12/27/23 21:01 139/91 12/27/23 21:01 37.3 C 67 18 12/27/23 21:00 37.3 C 67 18 91 12/27/23 20:47 67 18 93 12/27/23 20:31 37.3 C 67 18 92 12/27/23 20:31 139/86 12/27/23 20:30 37.3 C 67 19 91 O2 Del Method FiO2 12/28/23 07:22 Mechanical Vent 12/28/23 07:15 40 12/28/23 06:00 40 12/28/23 04:54 40 12/28/23 04:31 Mechanical Vent 40 12/28/23 04:31 12/28/23 04:30 12/28/23 04:01 Mechanical Vent 40 12/28/23 04:01 12/28/23 04:00 Mechanical Vent 40 12/28/23 04:00 40 12/28/23 03:31 Mechanical Vent 40 12/28/23 03:31 12/28/23 03:30 Mechanical Vent 40 12/28/23 03:01 12/28/23 03:01 12/28/23 03:00 Mechanical Vent 40 12/28/23 02:31 12/28/23 02:31 12/28/23 02:30 Mechanical Vent 40 12/28/23 02:01 Mechanical Vent 40 12/28/23 02:01 12/28/23 02:00 12/28/23 02:00 40 12/28/23 02:00 Mechanical Vent 12/28/23 01:31 12/28/23 01:31 Mechanical Vent 40 12/28/23 01:30 12/28/23 01:01 12/28/23 01:01 12/28/23 01:00 Mechanical Vent 40 12/28/23 00:31 Mechanical Vent 40 12/28/23 00:31 12/28/23 00:30 12/28/23 00:20 12/28/23 00:00 12/28/23 00:00 Mechanical Vent 40 12/27/23 23:45 40 12/27/23 23:42 40 12/27/23 23:30 12/27/23 23:30 12/27/23 23:01 12/27/23 23:01 12/27/23 23:00 Mechanical Vent 40 12/27/23 22:31 12/27/23 22:31 12/27/23 22:30 12/27/23 22:01 Mechanical Vent 40 12/27/23 22:01 12/27/23 22:00 12/27/23 21:30 12/27/23 21:30 Mechanical Vent 40 12/27/23 21:01 12/27/23 21:01 12/27/23 21:00 Mechanical Vent 40 12/27/23 20:47 40 12/27/23 20:31 12/27/23 20:31 12/27/23 20:30 Lab & Micro Results (Past 24 Hours) RBC 4.79 M/uL (4.70-6.10) 12/28/23 WBC 18.18 K/ul (4.8-10.8) H 12/28/23 Hgb 12.3 g/dl (14.0-18.0) L 12/28/23 Hct 38.9 % (42.0-52.0) L 12/28/23 MCV 81.2 fL (80.0-100.0) 12/28/23 MCH 25.7 pg (25.0-34.0) 12/28/23 MCHC 31.6 g/dL (32.0-36.0) L 12/28/23 RDW Standard Deviation 58.4 fL (36.4-46.3) H 12/28/23 RDW Coefficient of Variation 20.5 % (11.5-14.5) H 12/28/23 Plt Count 287 K/uL (130-400) 12/28/23 MPV 10.3 fL (9.4-12.4) 12/28/23 Neutrophils (%) (Auto) 73.2 % 12/28/23 Lymphocytes (%) (Auto) 15.2 % 12/28/23 Monocytes # (Auto) 1.18 K/uL (0.11-0.59) H 12/28/23 Eosinophils # (Auto) 0.55 K/uL (0.00-0.50) H 12/28/23 Immature Granulocyte % (Auto) 1.5 % 12/28/23 Neutrophils # (Auto) 13.31 K/uL (1.40-6.50) H 12/28/23 Lymphocytes # (Auto) 2.77 K/uL (1.20-3.40) 12/28/23 Monocytes # (Auto) 1.18 K/uL (0.11-0.59) H 12/28/23 Eosinophils # (Auto) 0.55 K/uL (0.00-0.50) H 12/28/23 Basophils # (Auto) 0.10 K/uL (0.00-0.20) 12/28/23 Immature Granulocyte # (Auto) 0.27 K/uL (0.01-0.20) H 12/27 Polychromasia 1+ 12/28/23 Anisocytosis Present 12/28/23 Na 135 mmol/L (136-145) L 12/28/23 K 3.3 mmol/L (3.5-5.1) L 12/28/23 Cl 96 mmol/L (98-107) L 12/28/23 CO2 32 mmol/L (21-32) 12/28/23 Anion Gap 7 (3-11) 12/28/23 BUN 21 mg/dl (6-23) 12/28/23 Creatinine 1.31 mg/dl (0.6-1.4) 12/28/23 Estimated GFR ( Amer) 71.5 ml/min 12/28/23 Estimated GFR (Non-Af Amer) 61.7 ml/min 12/28/23 BUN/Creatinine Ratio 16.0 (10-20) 12/28/23 Glu 140 mg/dl (70-99(Fasting)) H 12/28/23 Ca 9.1 mg/dl (8.6-10.3) 12/28/23 Phosphorus Level 3.7 mg/dl (2.5-4.9) 12/28/23 Total Bilirubin 0.5 mg/dl (0.2-1.0) 12/28/23 AST 15 U/L (13-39) 12/28/23 ALT 14 U/L (7-52) 12/28/23 Alkaline Phosphatase 112 U/L (34-104) H 12/28/23 TP 6.2 gm/dl (6.0-8.3) 12/28/23 Albumin 3.1 gm/dl (3.4-5.0) L 12/28/23 Globulin 3.1 gm/dl (2.5-4.0) 12/28/23 Albumin/Globulin Ratio 1.0 (0.9-2) 12/28/23 Mg 2.0 mg/dl (1.7-2.4) 12/28/23 04:26 Calcium Level 9.1 mg/dl (8.6-10.3) 12/28/23 04:26 Prothromb Time International Ratio 1.9 (0.9-1.1) H 12/28/23 04 :26 Mariano Test Pass 12/28/23 06:22 Microbiology 12/25/23 21:36 Urine Culture - Final Urine,Clean Catch Citrobacter freundii Diagnostic Findings (Past 24 Hours) Chest X-Ray 12/28/23 07:00 XR chest 1V portable HISTORY: Respiratory failure. COMPARISON: Chest 12/27/2023. FINDINGS: Endotracheal tube terminates 3.3 cm from the jenna. Nasogastric tube is difficult to visualize but appears to terminate below the diaphragm. The tip is not included on this study. There is normal, healed left clavicle fracture. No pneumothorax. The heart remains enlarged. Left basilar densities persist and favor subsegmental atelectasis or scarring. No pleural effusions. Mild pulmonary vascular congestion without overt edema. IMPRESSION: 1. Satisfactory support line placement. 2. Mild cardiomegaly and pulmonary vascular congestion persists. ACT 112: Negative or not required by law. Electronically signed by: Vidal Keller M.D. 12/28/2023 8:01 AM I & O Totals 24 Hours 12/27/23 12/28/23 12/29/23 06:59 06:59 06:59 Intake Total 1113.996 / 1676.805 6345.967 / 2413.967 96.495 / 96.495 Output Total 2590 / 2590 1675 / 1675 Balance -1476.004 / -1476.004 738.967 / 738.967 96.495 / 96.495 Cumulative 12/25/23 20:02 thru 12/28/23 07:52 Intake Total 4424.458 Output Total 4265 Balance 159.458 RT Ventilator Mngmt (Last Documented) Ventilator Ordered Settings Ventilator Support Mode Assist Control 12/28/23 07:15 Respiratory Rate 18 12/28/23 07:22 Ventilator Tidal Volume 500 12/28/23 07:15 Setting Minute Ventilation 9.0 12/28/23 07:15 Ventilator Positive Pressure 8 12/27/23 10:00 Support Setting Positive End Expiratory 10 12/28/23 07:15 Pressure Fraction of Inspired Oxygen 40 12/28/23 07:15 Peak Inspiratory Flow 38 12/27/23 15:47 Machine Comment decreased RR 12/27/23 15:47 Ventilator - PT Measurements Respiratory Rate 18 Exhaled Tidal Volume 499 Minute Ventilation 9.0 Peak Inspiratory Airway 24 Pressure Plateau Pressure 19.8 Respiratory Cycle Inspiratory: 1:3.6 Expiratory Ratio Inspiratory Phase Time 0.8 End-Tidal CO2 42 Static Lung Compliance 50.92 Dynamic Lung Compliance 35.64 Normal Static Lung Compliance 48.00 Patient Measurements Comment PT EXTUBATED AT THIS TIME PER ORDER FROM DR. LOERA TO 6LPM OXYMASK. SPO2 93%. PT BEING DIFFICULT, BUT BREATHING IS STABLE Coding Level of Care Code 76306 SUB INP/OBS CARE 3/50MIN Diagnoses Acute on chronic respiratory failure with hypoxia and hypercapnia J96.21; J96.22 Obesity hypoventilation syndrome E66.2 Pulmonary edema J81.1 Acute UTI N39.0
--- NOTE | 2023-12-28 08:19 | Hospitalist Progress Note ---
Date of Service December 28, 2023 Assessment & Plan (1) Complicated UTI (urinary tract infection): Plan: Plan Pt is a 53yoM with PMHx significant for chronic diastolic heart failure (EF 60 to 65%, TTE 2022), history CAD/STEMI as per records, history subdural hematoma/subarachnoid hemorrhage as per records (no operative intervention), hypertension, hyperlipidemia, COPD, recurrent PE on Coumadin, DM 2 insulin requiring, recurrent UTIs secondary to BPH/chronic urinary retention indwelling Lloyd catheter, chronic anemia (baseline hemoglobin 12-13), chronic pain on buprenorphine admitted with recurrent UTI and syncopal episode once more. Pt was completing a CT abd/pelvis on 12/25 when he coded in the CT scanner after laying flat. Reportedly was saturating in the 60s and lost color. He was not able to tolerate bipap and was subsequently intubated and transferred to the ICU. He is currently also being treated for the following: Acute on Chronic hypoxic and hypercarbic respiratory failure- Was intubated and sedated on 12/25 Extubated on 12/27 and downgraded from the ICU Currently on NC 2L Wean as tolerated Encourage DARIA/Obesity hypoventilation syndrome testing Home subutex was on hold in this setting and with sedation, resume per pt request Recurrent UTI On meropenem CT abd/pelvis with no acute changes ID consulted, appreciate recs. Syncope Has loop recorder Orthostatic vitals Continue to monitor on telemetry Hypokalemia replete as needed Continue other home meds as ordered DVT prophylaxis: On coumadin, follow INR Diet: pt requesting regular texture Dispo: PCU/tele Admission and Anticipated Discharge Date Admission Date: December 25, 2023 Subjective pt was seen in the early AM. Was extubated and was demanding to leave AMA. On further discussion, pt stated that he was agreeable to staying, as long he was downgraded. Review of Systems Review of Systems: All systems reviewed & are unremarkable except as noted in Subjective Physical Exam Physical Exam: General: Alert, oriented. No acute distress Skin: scaling on lower extremities Psych: Appropriate mood and affect Neuro:difficulty with movements HEENT: NC/AT, lips dry CV: heart sounds decreased due to body habitus Resp: Breath sounds decreased bilaterally, no increased effort of breathing. Abdomen: Soft, nontender, nondistended. Extremities: edema in lower extremities bilaterally. Results & Data Results & Data Vital Signs (Past 12 Hours) Vital Signs Temp Pulse Pulse Resp BP BP Pulse Ox 12/28/23 07:22 97 H 18 97 12/28/23 07:15 18 12/28/23 06:00 12/28/23 04:54 67 18 93 12/28/23 04:31 130/70 12/28/23 04:31 37.3 C 70 18 95 12/28/23 04:30 37.3 C 71 18 95 12/28/23 04:01 37.4 C 68 18 93 12/28/23 04:01 161/86 H 12/28/23 04:00 37.4 C 67 18 94 12/28/23 04:00 12/28/23 03:31 37.4 C 69 18 94 12/28/23 03:31 165/91 H 12/28/23 03:30 37.4 C 69 18 95 12/28/23 03:01 168/87 H 12/28/23 03:01 37.4 C 69 18 96 12/28/23 03:00 37.4 C 72 18 96 12/28/23 02:31 37.3 C 70 22 96 12/28/23 02:31 157/91 H 12/28/23 02:30 37.3 C 71 18 97 12/28/23 02:01 37.3 C 71 18 97 12/28/23 02:01 166/75 H 12/28/23 02:00 37.3 C 73 18 96 12/28/23 02:00 12/28/23 02:00 37.3 C 72 18 166/75 H 96 12/28/23 01:31 37.3 C 70 18 97 12/28/23 01:31 162/75 H 12/28/23 01:30 37.3 C 73 18 96 12/28/23 01:01 37.3 C 72 18 93 12/28/23 01:01 148/77 H 12/28/23 01:00 37.3 C 74 18 94 12/28/23 00:31 37.2 C 71 18 93 12/28/23 00:31 168/89 H 12/28/23 00:30 37.2 C 73 18 93 12/28/23 00:20 73 12/28/23 00:00 162/96 H 12/28/23 00:00 37.3 C 71 18 95 12/27/23 23:45 12/27/23 23:42 68 19 92 12/27/23 23:30 37.3 C 67 18 93 12/27/23 23:30 133/81 12/27/23 23:01 128/73 12/27/23 23:01 37.3 C 71 18 92 12/27/23 23:00 37.3 C 70 18 91 12/27/23 22:31 37.2 C 71 18 92 12/27/23 22:31 162/88 H 12/27/23 22:30 37.2 C 69 18 91 12/27/23 22:01 37.2 C 70 18 93 12/27/23 22:01 159/86 H 12/27/23 22:00 37.2 C 70 21 92 12/27/23 21:30 145/90 H 12/27/23 21:30 37.3 C 68 18 91 12/27/23 21:01 139/91 12/27/23 21:01 37.3 C 67 18 12/27/23 21:00 37.3 C 67 18 91 12/27/23 20:47 67 18 93 12/27/23 20:31 37.3 C 67 18 92 12/27/23 20:31 139/86 12/27/23 20:30 37.3 C 67 19 91 O2 Del Method FiO2 12/28/23 07:22 Mechanical Vent 12/28/23 07:15 40 12/28/23 06:00 40 12/28/23 04:54 40 12/28/23 04:31 Mechanical Vent 40 12/28/23 04:31 12/28/23 04:30 12/28/23 04:01 Mechanical Vent 40 12/28/23 04:01 12/28/23 04:00 Mechanical Vent 40 12/28/23 04:00 40 12/28/23 03:31 Mechanical Vent 40 12/28/23 03:31 12/28/23 03:30 Mechanical Vent 40 12/28/23 03:01 12/28/23 03:01 12/28/23 03:00 Mechanical Vent 40 12/28/23 02:31 12/28/23 02:31 12/28/23 02:30 Mechanical Vent 40 12/28/23 02:01 Mechanical Vent 40 12/28/23 02:01 12/28/23 02:00 12/28/23 02:00 40 12/28/23 02:00 Mechanical Vent 12/28/23 01:31 12/28/23 01:31 Mechanical Vent 40 12/28/23 01:30 12/28/23 01:01 12/28/23 01:01 12/28/23 01:00 Mechanical Vent 40 12/28/23 00:31 Mechanical Vent 40 12/28/23 00:31 12/28/23 00:30 12/28/23 00:20 12/28/23 00:00 12/28/23 00:00 Mechanical Vent 40 12/27/23 23:45 40 12/27/23 23:42 40 12/27/23 23:30 12/27/23 23:30 12/27/23 23:01 12/27/23 23:01 12/27/23 23:00 Mechanical Vent 40 12/27/23 22:31 12/27/23 22:31 12/27/23 22:30 12/27/23 22:01 Mechanical Vent 40 12/27/23 22:01 12/27/23 22:00 12/27/23 21:30 12/27/23 21:30 Mechanical Vent 40 12/27/23 21:01 12/27/23 21:01 12/27/23 21:00 Mechanical Vent 40 12/27/23 20:47 40 12/27/23 20:31 12/27/23 20:31 12/27/23 20:30
[2023-12-28] MEDS: INSULIN ASPART PER UNIT CHARGE SC SCH (09:25)
[2023-12-28] MEDS ORDERED: COUGH DROP (SUGAR FREE) LOZ 24 LOZ/1 BOX BUCCAL PRN (12:53)
[2023-12-28] MEDS: COUGH DROP (SUGAR FREE) LOZ 24 LOZ/1 BOX BUCCAL ONE (12:58)
[2023-12-28] MEDS ORDERED: ACETAMINOPHEN 1,000 MG/100 ML VIAL IV STA (17:24)
[2023-12-28] MEDS: ACETAMINOPHEN 1,000 MG/100 ML VIAL IV STA (17:58)
[2023-12-28] MEDS: buprenorphine HCL 8 MG SUBL SL SCH (20:44)
[2023-12-28] MEDS: CYCLOBENZAPRINE HCL 10 MG TAB PO PRN (23:59)
[2023-12-29 06:48] LABS: Basophils # (auto) 0.11 K/uL (0.00-0.20); Basophils % (auto) 0.7 %; Eosinophils # (auto) 0.45 K/uL (0.00-0.50); Hematocrit (blood only) 39.8 % (42.0-52.0); Hemoglobin 12.8 g/dl (14.0-18.0); Immature Granulocytes # (auto) 0.27 K/uL (0.01-0.20); Immature Granulocytes % (auto) 1.8 %; Lymphocytes # (auto) 3.25 K/uL (1.20-3.40); Lymphocytes % (auto) 21.6 %; Mean Corpuscular Hemoglobin 25.8 pg (25.0-34.0); Mean Corpuscular Hgb Conc 32.2 g/dL (32.0-36.0); Mean Corpuscular Volume 80.2 fL (80.0-100.0); Monocytes # (auto) 0.81 K/uL (0.11-0.59); Monocytes % (auto) 5.4 %; Neutrophils # (auto) 10.17 K/uL (1.40-6.50); Neutrophils % (auto) 67.5 %; Platelet Count 288 K/uL (130-400); RDW Coefficient of Variation 19.8 % (11.5-14.5); Red Blood Count 4.96 M/uL (4.70-6.10); White Blood Count 15.06 K/ul (4.8-10.8)
[2023-12-29 06:55] LABS: Albumin Level 3.6 gm/dl (3.4-5.0); BUN Creatinine Ratio 17.2 (10-20); Bilirubin,Total 0.9 mg/dl (0.2-1.0); Calcium 9.7 mg/dl (8.6-10.3); Creatinine Clr Calc Pharmacy 168.3 ml/min; Est GFR (African American) 114.2 ml/min; Est GFR (Non-African American) 98.5 ml/min; Globulin 3.5 gm/dl (2.5-4.0); Magnesium 1.8 mg/dl (1.7-2.4); Phosphorus 2.3 mg/dl (2.5-4.9); Potassium 3.7 mmol/L (3.5-5.1); Total Protein 7.1 gm/dl (6.0-8.3)
[2023-12-29 07:16] LABS: INR 1.3 (0.9-1.1); Prothrombin Time 13.9 Seconds (9.0-12.0)
--- NOTE | 2023-12-29 07:52 | XRay Report ---
XR chest 1V portable HISTORY: 53 years-old Male resp failure acute respiratory failure COMPARISON: 12/28/2023 TECHNIQUE: AP view of the chest FINDINGS: Status post extubation. The cardiac silhouette is enlarged. Cardiac loop recorder device. Trace pleur al effusions with mild persistent bibasilar opacities. Pulmonary vascular congestion. Healed chronic left clavicular fracture deformity. IMPRESSION: 1. Status post extubation. 2. Cardiomegaly with pulmonary vascular congestion. 3. Trace pleural effusions with mild persistent bibasilar opacities favoring atelectasis. ACT 112: Negative or not required by law. The above report was generated using voice recognition software. It may contain grammatical, syntax o r spelling errors. Electronically signed by: Shelton Apodaca M.D. 12/29/2023 7:50 AM
[2023-12-29 08:29] LABS: Base Excess ABG 4.2 mEq/L (-9-1.8); HCO3 ABG 29 mmol/L (19-24); Oxygen Saturation ABG 97.2 % (90-95); PCO2 ABG 44 mmHg (35-46); PO2 ABG 80 mmHg (80-95); pH ABG 7.43 (7.35-7.45)
[2023-12-29 08:31] LABS: Allen Test Pos (Pos)
[2023-12-29] MEDS: POT PHOSPHATE MONOBASIC W/ SOD TAB PO ONE (09:12)
[2023-12-29] MEDS: CIPROFLOXACIN 500 MG TAB PO SCH (10:01)
[2023-12-29] MEDS: buprenorphine HCL 2 MG SUBL SL SCH (13:04)
--- NOTE | 2023-12-29 13:39 | Hospitalist Progress Note ---
Date of Service December 29, 2023 Assessment & Plan (1) Complicated UTI (urinary tract infection): Plan: Plan 53yoM with PMHx significant for chronic diastolic heart failure (EF 60 to 65%, TTE 2022), history CAD/STEMI as per records, history subdural hematoma/subarachnoid hemorrhage as per records (no operative intervention), hypertension, hyperlipidemia, COPD, recurrent PE on Coumadin, DM 2 insulin re quiring, recurrent UTIs secondary to BPH/chronic urinary retention indwelling Lloyd catheter, chronic anemia (baseline hemoglobin 12-13), chronic pain on buprenorphine admitted with recurrent UTI and syncopal episode once more. Pt was completing a CT abd/pelvis on 12/25 when he had a rapid response for respiratory failure in the CT scanner after laying flat. Reportedly was saturating in the 60s and lost color. He was not able to tolerate bipap and was subsequently intubated and transferred to the ICU. He is currently being treated for the following: Acute on Chronic hypoxic and hypercarbic respiratory failure- Was intubated and sedated on 12/25 Extubated on 12/27 and downgraded from the ICU Currently on room air Concern for DARIA/OHS Will get nocturnal pulse ox tonight and ABG in AM to see if patient qualifies for temporary BIPAP prior to DC He will need sleep study and sleep medicine follow up on discharge Recurrent UTI CT abd/pelvis with no acute changes Was on meropenem Urine culture growing pansensitive Citrobacter Discussed with Dr Olivier who recommends changing to po ciprofloxacin to complete treatment Syncope Has loop recorder Orthostatic vitals Continue to monitor on telemetry Hypophosphatemia replete as needed Resume home torsemide 100mg daily. Stop iV lasix Continue other home meds as ordered DVT prophylaxis: INR is subtherapeutic. Resume home warfarin. Was on 2mg on sat and 4mg other days. Will do 4mg daily for now Dispo: PCU/tele I spent a total of 50 minutes coordinating, documenting and providing care for this patient excluding time spent in performance of separately billed services Admission and Anticipated Discharge Date Admission Date: December 25, 2023 Subjective Patient seen and examined. Reports Chronic generalized body pains. Denies any shortness of breath Denies fever, chills No new complaints today Physical Exam Constitutional: + well hydrated and + obese; no acute di stress Eyes: PERRL, conjunctivae normal, anicteric sclerae ENMT: external ear and nose normal, oropharynx normal Respiratory: normal respiratory effort, lungs clear to auscultation Cardiovascular: Rate/Rhythm: regular rate and regular rhythm S1 S2 Gastrointestinal (Abdomen): normal bowel sounds, soft, nontender, no hepatosplenomegaly Musculoskeletal: +KIESHA b/l. Chronic stasis changes Skin: [place] burn over left lower back Neurologic: PERRL, EOMI, accommodation nl, no face palsy, no dysarthria Psychiatric: A+Ox3, euthymic affect Genitourinary: Lloyd in situ Results & Data Results & Data Vital Signs (Past 12 Hours) Vital Signs Temp Pulse Pulse Resp BP Pulse Ox O2 Del Method 12/29/23 11:24 36.7 C 77 20 108/65 91 Room Air 12/29/23 11:07 71 12/29/23 08:04 36.6 C 72 19 106/61 97 Nasal Cannula 12/29/23 08:01 77 18 97 Nasal Cannula 12/29/23 08:00 Nasal Cannula 12/29/23 03:50 36.9 C 74 18 128/68 97 Nasal Cannula O2 Flow Rate 12/29/23 11:24 12/29/23 11:07 12/29/23 08:04 2 12/29/23 08:01 2 12/29/23 08:00 2 12/29/23 03:50 2.5 Laboratory Results Abnormal lab results 12/28/23 12/28/23 12/29/23 Range/Units 16:09 20:59 06:01 WBC 15.06 H (4.8-10.8) K/ul Hgb 12.8 L (14.0-18.0) g/dl Hct 39.8 L (42.0-52.0) % RDW Std Deviation 56.0 H (36.4-46.3) fL RDW Coeff of Megan 19.8 H (11.5-14.5) % Neut # (Auto) 10.17 H (1.40-6.50) K/uL Morgan # (Auto) 0.81 H (0.11-0.59) K/uL Immature Gran # (Auto) 0.27 H (0.01-0.20) K/uL PT 13.9 H (9.0-12.0) Seconds INR 1.3 H (0.9-1.1) ABG HCO3 (19-24) mmol/L ABG O2 Saturation (90-95) % ABG Base Excess (-9-1.8) mEq/L Glucose 167 H (70-99(Fasting)) mg/dl POC Glucose 134 H 206 H (70-99) mg/dl Phosphorus 2.3 L D (2.5-4.9) mg/dl Alkaline Phosphatase 116 H (34-104) U/L 12/29/23 12/29/23 12/29/23 Range/Units 07:38 08:12 11:22 WBC (4.8-10.8) K/ul Hgb (14.0-18.0) g/dl Hct (42.0-52.0) % RDW Std Deviation (36.4-46.3) fL RDW Coeff of Megan (11.5-14.5) % Neut # (Auto) (1.40-6.50) K/uL Morgan # (Auto) (0.11-0.59) K/uL Immature Gran # (Auto) (0.01-0.20) K/uL PT (9.0-12.0) Seconds INR (0.9-1.1) ABG HCO3 29 H (19-24) mmol/L ABG O2 Saturation 97.2 H (90-95) % ABG Base Excess 4.2 H (-9-1.8) mEq/L Glucose (70-99(Fasting)) mg/dl POC Glucose 169 H 205 H (70-99) mg/dl Phosphorus (2.5-4.9) mg/dl Alkaline Phosphatase (34-104) U/L
[2023-12-29] MEDS: ACETAMINOPHEN 1,000 MG/100 ML VIAL IV PRN (15:39)
[2023-12-29] MEDS: WARFARIN SOD 4 MG TAB PO SCH (15:40)
[2023-12-30 06:53] LABS: Base Excess ABG 5.1 mEq/L (-9-1.8); HCO3 ABG 31 mmol/L (19-24); Hematocrit (blood only) 39.9 % (42.0-52.0); Hemoglobin 12.7 g/dl (14.0-18.0); Mean Corpuscular Hemoglobin 26.3 pg (25.0-34.0); Mean Corpuscular Hgb Conc 31.8 g/dL (32.0-36.0); Mean Corpuscular Volume 82.6 fL (80.0-100.0); Oxygen Saturation ABG 96.8 % (90-95); PCO2 ABG 50 mmHg (35-46); PO2 ABG 79 mmHg (80-95); Platelet Count 278 K/uL (130-400); RDW Coefficient of Variation 19.9 % (11.5-14.5); Red Blood Count 4.83 M/uL (4.70-6.10); White Blood Count 12.73 K/ul (4.8-10.8)
[2023-12-30 06:55] LABS: Allen Test Pos (Pos)
[2023-12-30 07:15] LABS: BUN Creatinine Ratio 14.7 (10-20); Calcium 9.7 mg/dl (8.6-10.3); Creatinine Clr Calc Pharmacy 155.4 ml/min; Est GFR (African American) 105.5 ml/min; Magnesium 1.9 mg/dl (1.7-2.4); Potassium 4.6 mmol/L (3.5-5.1)
[2023-12-30 07:26] LABS: INR 1.1 (0.9-1.1); Prothrombin Time 11.9 Seconds (9.0-12.0)
--- NOTE | 2023-12-30 07:36 | XRay Report ---
XR chest 1V portable HISTORY: resp failure COMPARISON: Chest 12/29/2023. FINDINGS: No pneumothorax. No evidence for pulmonary edema. The heart remains enlarged. Bibasilar yoana ear densities favor subsegmental atelectasis. No new focal lung consolidations. Old left clavicular d eformity again noted. Trace bilateral pleural effusions. IMPRESSION: Stable cardiomegaly and trace bilateral pleural effusions. ACT 112: Negative or not required by law. Electronically signed by: Vidal Keller M.D. 12/30/2023 7:35 AM
[2023-12-30] MEDS: TORSEMIDE 100 MG TAB PO SCH (08:54)
--- NOTE | 2023-12-30 10:46 | Discharge Summary ---
Date of Service December 30, 2023 Admission HPI Per Admitting Provider History obtained from patient and records. Medical history significant for chronic diastolic heart failure (EF 60 to 65%, TTE 2022), history CAD/STEMI as per records, history subdural hematoma/subarachnoid hemorrhage as per records (no operative intervention), hypertension, hyperlipidemia, COPD, recurrent PE on Coumadin, DM 2 insulin requiring, recurrent UTIs secondary to BPH/chronic urinary retention indwelling Lloyd catheter, chronic anemia (baseline hemoglobin 12-13), chronic pain on buprenorphine, drug-seeking behavior as per records, ongoing tobacco abuse. Monthly [facility] confinements the last few years. Recent confinement 3 weeks ago for syncope, shingles rash, and Klebsiella UTI status post antibiotic Rx. Patient was not comfortable going home and appealed discharge. Patient still feeling crappy and urine still noted to be cloudy as per patient at home. Denies unusual abdominal or flank pain. No hematuria. Claims to be compliant with home medications. Unanswered calls from outpatient onsite case manager as per documentation. Witnessed syncopal event today while walking which is usually the case as per patient. No head trauma. Patient remembers feeling lightheaded prior to event. Denies unusual chest pain or SOB. No tongue biting or witnessed seizures. Patient brought to ER for evaluation. Medical History as above Surgical History : Foot/toe surgery, nerve repair, hand surgery, scalp neck wound injury Family History : Breast cancer, heart disease, COPD Personal/Social history : One pack daily, no EtOH intake, disabled Admission Exam Per Admitting Provider GENERAL: Comfortable, morbidly obese, looks older than stated age, no respiratory distress SKIN: Pallor, warm HEENT: Alopecia, bespectacled, pale palpebral conjunctivae, no ptosis, moist buccal mucosa NECK : Supple, short neck, no tenderness CHEST : Decreased breath sounds, expiratory wheezes, no tenderness HEART : RRR, no obvious murmurs ABDOMEN: distention, no tenderness EXTREMITIES : Bilateral LE swelling, no LE tenderness, no conspicuous deformities noted NEUROLOGIC : Coherent, no facial asymmetry, gait and stance not assessed Principal Diagnosis Syncope Complicated Urinary Tract infection Respiratory failure Discharge Exam Constitutional + well hydrated and + obese; no acute distress Eyes PERRL, conjunctivae normal, anicteric sclerae ENMT external ear and nose normal, oropharynx normal Respiratory normal respiratory effort, lungs clear to auscultation Cardiovascular Rate/Rhythm: regular rate and regular rhythm S1 S2 Gastrointestinal (Abdomen) normal bowel sounds, soft, nontender, no hepatosplenomegaly Musculoskeletal +pedal edema Neurologic PERRL, EOMI, accommodation nl, no face palsy, no dysarthria Psychiatric A+Ox3, euthymic affect Discharge Data Allergies Allergy/AdvReac Type Severity Reaction Status Date / Time cefepime Allergy Intermediate rash Verified 12/25/23 21:05 daptomycin Allergy Intermediate rash Verified 12/25/23 21:05 fentanyl Allergy Intermediate RASH/HIVES/SKIN Verified 12/25/23 21:05 REDNESS acetaminophen [From Tylenol] AdvReac Intermediate IRRITATES Verified 12/25/23 21:05 & UPSET STOMACH ibuprofen AdvReac Intermediate Nausea Verified 12/25/23 21:05 naloxone AdvReac Intermediate extremely Verified 12/25/23 21:05 sick valproic acid AdvReac Intermediate PANCREATITS Verified 12/25/23 21:05 Consultations 12/25/23 23:20 ED Decision to Admit Stat 12/26/23 04:04 Consult Urology Routine 12/26/23 04:07 Consult Infectious Diseases Routine 12/26/23 14:01 Consult Iron Worker Routine Ordered Studies 12/25/23 21:05 CT cervical spine wo con Stat CT head/brain wo con Stat 12/26/23 13:03 CT abd pelvis IV con only Urgent Hospital Course (1) Complicated UTI (urinary tract infection): Plan 53yoM with PMHx significant for chronic diastolic heart failure (EF 60 to 65%, TTE 2022), history CAD/STEMI as per records, history subdural hematoma/subarachnoid hemorrhage as per records (no operative intervention), hypertension, hyperlipidemia, COPD, recurrent PE on Coumadin, DM 2 insulin requiring, recurrent UTIs secondary to BPH/chronic urinary retention indwelling Lloyd catheter, chronic anemia (baseline hemoglobin 12-13), chronic pain on buprenorphine admitted with recurrent UTI and syncopal episode once more. Pt was completing a CT abd/pelvis on 12/25 when he had a rapid response for respiratory failure in the CT scanner after laying flat. Reportedly was saturating in the 60s and lost color. He was not able to tolerate bipap and was subsequently intubated and transferred to the ICU. He is currently being treated for the following: Acute on Chronic hypoxic and hypercarbic respiratory failure- Was intubated and sedated on 12/25 Extubated on 12/27 and downgraded from the ICU Currently on room air Concern for DARIA/OHS Does not qualify for loaner BIPAP until sleep study based on Noct pulse ox Continue home nocturnal oxygen use PCP needs to refer him to sleep medicine He will need sleep study Recurrent UTI CT abd/pelvis with no acute changes Was on meropenem Urine culture growing pansensitive Citrobacter Discharged on po ciprofloxacin to complete treatment Syncope Has loop recorder Total Time Total Time Spent Total Time Spent (In Minutes): 40 Total Time Includes: Examination of the Patient, Discharge Planning and Medication Reconciliation Discharge Plan Discharge Items Patient Disposition: Home - Self-Care Reason For Visit: SYNCOPE, COMP UTI Discharge Diagnosis: Syncope Complicated Urinary Tract infection Respiratory failure Activity: Resume your previous activity Non-emergency contact: Primary Care Provider Call non-emergency contact if: you have any medication questions Follow-up/Referrals: Kehinde Mc MD [Outside Practitioners] - (Date & Time 01/04/2024 2:00 PM Provider Kehinde Mc MD [facility] ) Diet: Carb Consistent or DM2, Heart Healthy and Low Sodium (2gm) Fluids: 1800ml (7 cups) Addtl Attending Provider Instructions: Mr Milner You came to the hospital after a syncopal episode. You were evaluated and treated for Urinary tract infection. You had respiratory failure and required intubation/ICU stay. You were successfully extubated and doing well. It is very important that you follow up with your Family Doctor and get a referral for Sleep study. Continue to use your oxygen at bedtime. Take the antibiotic for next 4 days to complete treatment. Avoid taking zofran while on the antibiotic. Please ensure follow up with Anticoagulation/Warfarin clinic as we discussed. It was a pleasure taking care of you. Pending Studies at Discharge: No Stand-Alone Forms: My [employer], Smoking Cessation Medications and DC Order Prescriptions: New ciprofloxacin HCl 500 mg Tablet 500 mg PO BID 4 Days Qty: 8 0RF Continued polyethylene glycol 3350 [Miralax] 17 gram powder in packet 17 g PO QAM PRN (Reason: Constipation) nitroglycerin [Nitrostat] 0.4 mg tablet, sublingual 0.4 mg Sublingual DIRECTED PRN (Reason: CHEST PAIN) Rx Instructions: PLACE ONE TABLET UNDER THE TONGUE EVERY 5 MINUTES FOR UP TO 3 DOSES OVER 15 MINUTES IF NEEDED FOR CHEST PAIN nystatin 100,000 unit/gram Powder 1 applic TOPICAL TID PRN (Reason: Skin Irritation) Rx Instructions: APPLY DIRECTED TO ABDOMINAL FOLDS docusate sodium 100 mg Capsule 100 mg PO BID PRN (Reason: Constipation) duloxetine 60 mg capsule,delayed release(DR/EC) 60 mg PO DAILY famotidine 20 mg tablet 20 mg PO DAILY aspirin [Ecotrin Low Strength] 81 mg tablet,delayed release (DR/EC) 81 mg PO QAM finasteride 5 mg tablet 5 mg PO QAM sennosides [senna] 8.6 mg Tablet 8.6 mg PO DAILY PRN (Reason: Constipation) folic acid 1 mg Tablet 1 mg PO QAM glipizide 10 mg tablet 10 mg PO BID urea [Ureacin-20] 20 % Cream 1 applic TOPICAL BID ferrous sulfate 325 mg (65 mg iron) Tablet 325 mg PO QAM Rx Instructions: Take with breakfast hydroxyzine HCl 25 mg Tablet 25 mg PO QID PRN (Reason: Anxiety) ipratropium-albuterol 0.5 mg-3 mg(2.5 mg base)/3 mL Solution For Nebulization 3 ml INHALATION TID fluticasone propionate 93 mcg/actuation Aerosol Breath Activated 2 spray INTRANASAL DAILY Rx Instructions: into each nostril insulin aspart U-100 [Novolog FlexPen U-100 Insulin] 100 unit/mL (3 mL) insulin pen 0 sliding scale dose subcut TIDM Rx Instructions: take before meal buprenorphine HCl 8 mg tablet, sublingual See Rx Instructions .ROUTE .COMPLEX Rx Instructions: 8 mg sublingually ;Pt takes 20mg total a day: 8mg in AM, 4mg at 1400 and 8mg with evening medications atorvastatin 80 mg tablet 80 mg PO QAM Qty: 30 0RF metoprolol succinate 50 mg Tablet Extended Release 24 Hr 75 mg PO BID 30 Days Qty: 180 0RF tamsulosin [Flomax] 0.4 mg capsule 0.8 mg PO QAM Qty: 180 0RF isosorbide dinitrate 30 mg tablet 30 mg PO DAILY Qty: 30 0RF warfarin 2 mg tablet See Rx Instructions .ROUTE .COMPLEX Rx Instructions: TAKES 4 MG ON FRIDAYS ONLY AT 1600, THEN 2 MG SUN, MON, TU, WED, TH, & SAT AT 1600 cyclobenzaprine 10 mg Tablet 10 mg PO BID PRN (Reason: Muscle Spasm) Qty: 15 0RF fluticasone propion-salmeterol [Advair Diskus] 250-50 mcg/dose Blister With Device 1 inh INHALATION BID 30 Days Qty: 1 0RF insulin glargine [Lantus U-100 Insulin] 100 unit/mL solution 50 unit SC HS 30 Days Qty: 15 0RF omeprazole 20 mg Capsule,Delayed Release(Dr/Ec) 20 mg PO DAILYBB 30 Days Qty: 30 0RF budesonide 0.5 mg/2 mL suspension for nebulization 0.5 mg inhalation Q12H 30 Days Qty: 60 0RF albuterol sulfate 90 mcg/actuation Hfa Aerosol Inhaler 2 puff INHALATION Q4 PRN (Reason: Dyspnea) 30 Days Qty: 1 0RF Mucinex DM 30-600 mg Tablet Extended Release 12 Hr 1 tab PO Q12H PRN (Reason: Cough) Lactobacillus acidophilus Tablet,Chewable 1 tab PO DAILY spironolactone 25 mg tablet 25 mg PO QAM potassium chloride 20 mEq tablet,ER particles/crystals 20 meq PO BID magnesium oxide 400 mg (241.3 mg magnesium) tablet 400 mg PO QAM torsemide 100 mg tablet 100 mg PO DAILY ondansetron HCl 4 mg Tablet 4 mg PO Q8H PRN (Reason: NAUSEA/VOMITING) Qty: 12 0RF gabapentin 800 mg tablet 800 mg PO TID Qty: 90 0RF Rx Instructions: MAY INCREASE TO 1,600 MG TID PER GMG. Discharge Orders: Discharge Order (Routine); Ordered 12/30/23 Ordered By: Winnie Lara Admission Data Admit Date/Time: 12/25/23 23:43 Attending Provider: Winnie Lara I. Admit Provider: Waldemar Galarza Primary Care Provider: PCP,NO Other Providers: Waldemar Galarza; Christian Burrows; Huan Oconnell Christopher T.; Tosin Ryder; Franklin Oakley; Louisa Falk; Flory Hart; Nikolai Liang; Cele Lira; Jacob De La Rosa; Winifred Kohler; Harsha Gayle; Peterson Palafox; Luis F Maciel; Flaco Last I.; Jin Olivier II; Liliam Romero; Owen Badillo; Robert De Guzman; Steve Almendarez; Kristian Courtney; Sj Yadav Other Interventions: Discharge Summary Assessment (RN) Last Done: 12/30/23 11:00
--- NOTE | 2024-01-02 15:19 | Coding Query ---
CODING QUERY To promote full compliance with coding requirements relating to patient care, provider participation is requested in all cases of day care attendant uncertainty. Please assist us with the question(s) below: In the record, it states that the patient has an UTI. Please clarify below the cause of the UTI if applicable. Please see Infection Control Consult 12/26 . Thank you. Harry Coronado, MARTHA CCS ( ) The chronic fontaine was the cause of the UTI. ( ) Other urinary cath/device was the cause of the UTI. ( ) UTI, unspecified cause. ( ) Self-catheterization was the cause of the UTI. ( x ) Other (Specify): Chronic fontaine likely cause of UTI Principal Diagnosis: "that condition established after study, to be chiefly responsible for occasioning the admission of the patient to the hospital for care." Co-Existing Principal Diagnosis: "when two or more diagnoses equally meet the criteria for principal diagnosis as determined by the circumstances of admission, diagnostic work up, and/or therapy provided, and the Alphabetic Index, Tabular List, or another coding guideline does not provide sequencing direction, any one of the diagnoses may be sequenced first." "When the physician has documented what appears to be a current diagnosis in the body of the record, but has not included the diagnosis in the final diagnostic statement, the physician should be asked whether the diagnosis should be added." (Source Coding [facility] 2 QTR90. p3-4) [place]
== END 2023-12-30 12:00 | disposition home or self-care (01) | DRG 698 ==
LOC: ED 20:11 → SUATTDRO 23:43 → EDINP 23:43 → 1E 12-26 00:37 → 2S 12-28 19:19

== ENCOUNTER 2024-03-14 09:29 | Inpatient (IN) ==
--- NOTE | 2024-03-14 09:35 | Emergency Department Note ---
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 5% 1 Patch) 2 patch TD DAILY EMPERATRIZ Stop: 04/13/24 17:29 Last Admin: 03/14/24 18:06 Dose: 2 patch Documented By: COTY Nicotine (Nicotine 21 Mg/24 Hr Tdsy) 1 patch TD QAM EMPERATRIZ Stop: 04/13/24 14:44 Last Admin: 03/14/24 15:22 Dose: 1 patch Documented By: ROLANDO Discontinued Medications Albuterol (Albut/Ipratrop 3mg/0.5mg Neb 3 Ml Vial) Confirm Administered Dose 3 ml .ROUTE .STK-MED ONE Stop: 03/14/24 12:07 Last Admin: 03/14/24 12:11 Dose: 3 ml Documented By: ANNEMARIE Albuterol (Albut/Ipratrop 3mg/0.5mg Neb 3 Ml Vial) 12 ml NEB ONE ONE; Protocol Stop: 03/14/24 12:31 Last Admin: 03/14/24 12:40 Dose: 12 ml Documented By: JENNY Buprenorphine HCl (Buprenorphine Hcl 2 Mg Subl) 4 mg SL NOW ONE Stop: 03/14/24 17:46 Last Admin: 03/14/24 18:06 Dose: 4 mg Documented By: COTY Diphenhydramine HCl (Diphenhydramine 50 Mg/Ml Vial) 25 mg IV NOW STA Stop: 03/14/24 12:01 Last Admin: 03/14/24 12:12 Dose: 25 mg Documented By: ANNEMARIE Epinephrine HCl (Epinephrine Inj 1 Mg/Ml Amp) Confirm Administered Dose 1 mg .ROUTE .STK-MED ONE Stop: 03/14/24 12:06 Last Admin: 03/14/24 12:11 Dose: 0.3 mg Documented By: ANNEMARIE Acetaminophen (Ofirmev) 1,000 mg in 100 mls @ 400 mls/hr IV NOW STA Stop: 03/14/24 10:13 Last Infusion: 03/14/24 11:00 Dose: Infused Documented By: Admin: 03/14/24 10:32 Dose: 400 mls/hr Documented By: TEJINDER Famotidine (Pepcid 20mg Iv Push) 20 mg in 5 mls @ 2.5 mls/min IV NOW STA Stop: 03/14/24 12:34 Last Admin: 03/14/24 12:44 Dose: 2.5 mls/min Documented By: ROLANDO Phytonadione 5 mg/ Dextrose 50.5 mls @ 101 mls/hr IV ONE ONE Stop: 03/14/24 13:54 Last Infusion: 03/14/24 14:59 Dose: Infused Documented By: Admin: 03/14/24 14:11 Dose: 101 mls/hr Documented By: ROLANDO Ceftriaxone Sodium (Rocephin) 2,000 mg in 50 mls @ 100 mls/hr IV NOW STA Stop: 03/14/24 14:36 Last Infusion: 03/14/24 15:46 Dose: Infused Documented By: Admin: 03/14/24 14:58 Dose: 100 mls/hr Documented By: ROLANDO Ioversol (Optiray 320 125ml) 120 ml IV ONCE ONE Stop: 03/14/24 11:55 Last Admin: 03/14/24 11:50 Dose: 120 ml Documented By: WENCESLAO Methylprednisolone (Methylprednisolone 125 Mg/2 Ml Vial) Confirm Administered Dose 125 mg .ROUTE .[facility]-MED ONE Stop: 03/14/24 12:06 Last Admin: 03/14/24 12:11 Dose: 125 mg Documented By: ANNEMARIE Methylprednisolone (Methylprednisolone 125 Mg/2 Ml Vial) 125 mg IV NOW STA Stop: 03/14/24 12:34 Last Admin: 03/14/24 12:40 Dose: Not Given Documented By: ROLANDO Ondansetron HCl (Ondansetron Inj 2 Mg/Ml 2 Ml Vial) 4 mg IV NOW STA Stop: 03/14/24 11:04 Last Admin: 03/14/24 11:10 Dose: 4 mg Documented By: ROLANDO Imaging Data Radiologist's Impression: Abdomen/Pelvis CT 03/14/24 09:55 CT SCAN OF THE ABDOMEN AND PELVIS WITH IV CONTRAST CLINICAL HISTORY: Generalized abdominal pain. Hematuria. Fall. COMPARISON STUDY: Abdominal CT dated 12/26/2023 TECHNIQUE: Following the IV administration of 120 cc of Optiray 320, CT scan of the abdomen and pelvis is performed from the lung bases to the proximal femora. Images are reviewed in the axial, sagittal, and coronal planes. IV contrast was administered without complication. A dose lowering technique was utilized adhering to the principles of ALARA. The examination is degraded by large body habitus, and by streak artifact from the body wall abutting the CT gantry. FINDINGS: Lung bases: The heart is normal in size and without pericardial effusion. The lung bases are clear noting bibasilar scarring/atelectasis. Gynecomastia is noted. Liver: The contrast-enhanced liver is normal in size and contour. Attenuation is diffusely diminished indicating steatosis. There is no intrahepatic biliary ductal dilatation. The hepatic veins and portal veins are patent. Gallbladder: Unremarkable. Spleen: Normal in size and attenuation. Pancreas: Moderately atrophic and grossly unremarkable. Adrenal glands: Unremarkable. Kidneys: The contrast enhanced kidneys are normal in size and without hydronephrosis. The kidneys enhance symmetrically. There is a 4 mm nonobstructing right renal calculus. No ureteral stone is seen. Abdominal vasculature: The abdominal aorta is normal in course and caliber. Bowel: No bowel obstruction is seen. There is moderate colonic fecal retention. The appendix is not identified and findings suggest prior appendectomy. Peritoneum: There is no intraperitoneal free air or abdominal ascites. There is a fat-containing umbilical hernia. There is laxity of the ventral abdominal wall with protrusion of abdominal contents. Lymphadenopathy: None. Pelvic viscera: The bladder is decompressed around a Lloyd catheter and could not be evaluated. The prostate gland is diminutive. The seminal vesicles are normal as imaged. Skeletal structures: There is a mild chronic compression deformity of L1. No lytic or blastic lesions are seen. There is mild lumbosacral spondylosis. Sclerotic change is noted in the sacroiliac joints. IMPRESSION: 1. No acute infectious or inflammatory findings are identified in the abdomen or pelvis. 2. Hepatic steatosis. 3. Right-sided nephrolithiasis. 4. Additional findings as above. ACT 112: Negative or not required by law. Electronically signed by: Misael Lopez M.D. 03/14/2024 12:[address] 03/14/24 09:55 CT cervical spine wo con CLINICAL HISTORY: pain fall TECHNIQUE: Multidetector row helical CT of the cervical spine was performed without administration of intravenous contrast. Coronal and sagittal reformations were obtained. Automated dose lowering techniques and/or adjustment according to patient size were utilized for this exam. Comparison: None available at the time of this dictation. FINDINGS: No acute fractures or subluxations are identified. Degenerative changes are seen in the visualized spine. The alignment is normal. Soft tissues are unremarkable. IMPRESSION: Degenerative changes without evidence of acute bony injury. ACT 112: Negative or not required by law. Electronically signed by: Armand Tobar M.D. 03/14/2024 12:29 PM Chest X-Ray 03/14/24 09:55 SINGLE VIEW CHEST CLINICAL HISTORY: Atypical chest pain. Syncope FINDINGS: 2 AP, portable, upright chest radiographs are compared to study dated 12/30/2023. An electronic device projects over the heart. The heart is enlarged. The pulmonary vasculature is not congested. Mild atelectasis is seen at the lung bases. The lungs and pleural spaces are otherwise clear. No pneumothorax is seen. The skeletal structures are osteopenic. There is chronic deformity of the left clavicle. IMPRESSION: Cardiomegaly with no active disease in the chest. ACT 112: Negative or not required by law. Electronically signed by: Misael Lopez M.D. 03/14/2024 10:[address] 03/14/24 09:55 CT SCAN OF THE BRAIN WITHOUT IV CONTRAST CLINICAL HISTORY: Fall. COMPARISON STUDY: CT of the brain dated 12/25/2023. TECHNIQUE: Unenhanced axial CT scan of the brain is performed from the vertex to the skull base. A dose lowering technique was utilized adhering to the principles of ALARA. CT DOSE: 4132.05 mGy.cm FINDINGS: Brain parenchyma: The brain parenchyma is normal in appearance. There is no hemorrhage, mass effect, or evidence of acute territorial ischemia by CT criteria. [place]-white matter differentiation is preserved. No extra-axial fluid collection is seen. Ventricles, sulci, cisterns: Normal in configuration. Intracranial vasculature: The visualized intracranial vasculature at the skull base is normal in appearance. Calvarium: Unremarkable. Sinuses and mastoids: There is subtotal opacification of the maxillary sinuses. Thickening and sclerosis of the sinus subramanian indicates chronicity. Mild mucosal thickening is noted in the ethmoid and sphenoid sinuses. There is a small left mastoid effusion. The right mastoid air cells are well pneumatized. Orbits: The bony orbits are grossly intact. IMPRESSION: 1. No acute intracranial abnormality. 2. Paranasal sinus disease as above. ACT 112: Negative or not required by law. Electronically signed by: Misael Lopez M.D. 03/14/2024 12:09 PM Knee X-Ray 03/14/24 09:55 XR knee RT 1 or 2V routine CLINICAL HISTORY: pain fall TECHNIQUE: 2 views of the right knee were obtained. Comparison: Comparison is made to knee radiographs 11/02/2021 FINDINGS: There is no evidence of an acute fracture. Degenerative changes are seen most prominent in the medial compartment. No joint effusion is seen. No soft tissue abnormality is seen. IMPRESSION: Degenerative changes without evidence of acute injury. ACT 112: Negative or not required by law. Electronically signed by: Armand Tobar M.D. 03/14/2024 10:34 AM Chest X-Ray 03/14/24 12:30 SINGLE VIEW CHEST CLINICAL HISTORY: Hypoxia FINDINGS: An AP, portable, upright chest radiograph is compared to study performed earlier the same day 03/14/2024. The examination is degraded by portable technique and apical lordotic positioning. An electronic device projects over the heart. The heart is enlarged. The pulmonary vasculature is not congested. Mild atelectasis is seen at the lung bases. The lungs and pleural spaces are otherwise clear. No pneumothorax is seen. The skeletal structures are osteopenic. There is chronic deformity of the left clavicle. IMPRESSION: Cardiomegaly with no active disease in the chest. ACT 112: Negative or not required by law. Electronically signed by: Misael Lopez M.D. 03/14/2024 1:37 PM Discharge Plan Visit Data Chief Complaint: Urinary Symptoms Stated Complaint: hematuria ED Provider: Enrike Ayala Discharge Problem: Anaphylaxis, Gross hematuria, Complicated urinary tract infection, Indwelling Lloyd catheter present, Subtherapeutic international normalized ratio (INR), Hypomagnesemia Patient Disposition: Admitted As Inpatient Discharge Instructions Interventions: ED Discharge Assessment Last Done: 03/14/24 16:22 Discharge Problem: Anaphylaxis Qualifiers: Encounter type: initial encounter Qualified Code(s): T78.2XXA - Anaphylactic shock, unspecified, initial encounter
[2024-03-14] MEDS: ACETAMINOPHEN 1,000 MG/100 ML VIAL IV STA (10:32)
--- NOTE | 2024-03-14 10:35 | XRay Report ---
XR knee RT 1 or 2V routine CLINICAL HISTORY: pain fall TECHNIQUE: 2 views of the right knee were obtained. Comparison: Comparison is made to knee radiographs 11/02/2021 FINDINGS: There is no evidence of an acute fracture. Degenerative changes are seen most prominent in the medial compartment. No joint effusion is seen. No soft tissue abnormality is seen. IMPRESSION: Degenerative changes without evidence of acute injury. ACT 112: Negative or not required by law. Electronically signed by: Armand Tobar M.D. 03/14/2024 10:34 AM
--- NOTE | 2024-03-14 10:38 | XRay Report ---
SINGLE VIEW CHEST CLINICAL HISTORY: Atypical chest pain. Syncope FINDINGS: 2 AP, portable, upright chest radiographs are compared to study dated 12/30/2023. An electro mena device projects over the heart. The heart is enlarged. The pulmonary vasculature is not congested . Mild atelectasis is seen at the lung bases. The lungs and pleural spaces are otherwise clear. No pn eumothorax is seen. The skeletal structures are osteopenic. There is chronic deformity of the left cl avicle. IMPRESSION: Cardiomegaly with no active disease in the chest. ACT 112: Negative or not required by law. Electronically signed by: Misael Lopez M.D. 03/14/2024 10:36 AM
[2024-03-14 10:47] LABS: Basophils # (auto) 0.13 K/uL (0.00-0.20); Basophils % (auto) 0.7 %; Eosinophils # (auto) 0.58 K/uL (0.00-0.50); Eosinophils % (auto) 3.3 %; Hematocrit (blood only) 43.2 % (42.0-52.0); Hemoglobin 13.8 g/dl (14.0-18.0); Immature Granulocytes # (auto) 0.08 K/uL (0.01-0.20); Immature Granulocytes % (auto) 0.5 %; Lymphocytes # (auto) 4.19 K/uL (1.20-3.40); Mean Corpuscular Hemoglobin 25.7 pg (25.0-34.0); Mean Corpuscular Hgb Conc 31.9 g/dL (32.0-36.0); Mean Corpuscular Volume 80.3 fL (80.0-100.0); Mean Platelet Volume 11.5 fL (9.4-12.4); Monocytes # (auto) 0.99 K/uL (0.11-0.59); Monocytes % (auto) 5.7 %; Neutrophils # (auto) 11.48 K/uL (1.40-6.50); Neutrophils % (auto) 65.8 %; Platelet Count 256 K/uL (130-400); RDW Coefficient of Variation 18.4 % (11.5-14.5); RDW Standard Deviation 52.2 fL (36.4-46.3); Red Blood Count 5.38 M/uL (4.70-6.10); White Blood Count 17.45 K/ul (4.8-10.8)
[2024-03-14 10:54] LABS: iSTAT Hemoglobin 14.6 g/dl (14.0-18.0); iSTAT Ionized Calcium 1.17 mmol/l (1.12-1.32); iSTAT Potassium 3.7 mmol/L (3.3-5.0)
[2024-03-14 11:01] LABS: Albumin Globulin Ratio 1.1 (0.9-2); Albumin Level 3.5 gm/dl (3.4-5.0); BUN Creatinine Ratio 7.4 (10-20); Bilirubin,Total 0.5 mg/dl (0.2-1.0); Calcium 9.2 mg/dl (8.6-10.3); Est GFR (African American) 105.5 ml/min; Globulin 3.2 gm/dl (2.5-4.0); Magnesium 1.4 mg/dl (1.7-2.4); Potassium 3.7 mmol/L (3.5-5.1); Total Protein 6.7 gm/dl (6.0-8.3)
[2024-03-14 11:05] LABS: Troponin I High Sensitivity 4.8 pg/ml (0-20)
[2024-03-14] MEDS: ONDANSETRON INJ 2 MG/ML 2 ML VIAL IV STA (11:10)
[2024-03-14 11:17] LABS: Prothrombin Time > 90.0 Seconds (9.0-12.0)
[2024-03-14 11:40] LABS: INR > 9.5 (0.9-1.1)
[2024-03-14] MEDS: OPTIRAY 320 125ml IV ONE (11:50)
[2024-03-14] MEDS: EPINEPHrine INJ 1 MG/ML AMP ONE (12:11)
[2024-03-14] MEDS: ALBUT/IPRATROP 3MG/0.5MG NEB 3 ML VIAL ONE (12:11)
[2024-03-14] MEDS: methylPREDNISolone 125 MG/2 ML VIAL ONE (12:11)
[2024-03-14] MEDS: diphenhydrAMINE 50 MG/ML VIAL IV STA (12:12)
--- NOTE | 2024-03-14 12:12 | CT Scan Report ---
CT SCAN OF THE BRAIN WITHOUT IV CONTRAST CLINICAL HISTORY: Fall. COMPARISON STUDY: CT of the brain dated 12/25/2023. TECHNIQUE: Unenhanced axial CT scan of the brain is performed from the vertex to the skull base. A d ose lowering technique was utilized adhering to the principles of ALARA. CT DOSE: 4132.05 mGy.cm FINDINGS: Brain parenchyma: The brain parenchyma is normal in appearance. There is no hemorrhage, mass effect, or evidence of acute territorial ischemia by CT criteria. [place]un[place]-white matter differentiation is preser nani. No extra-axial fluid collection is seen. Ventricles, sulci, cisterns: Normal in configuration. Intracranial vasculature: The visualized intracranial vasculature at the skull base is normal in appe arance. Calvarium: Unremarkable. Sinuses and mastoids: There is subtotal opacification of the maxillary sinuses. Thickening and sclero sis of the sinus subramanian indicates chronicity. Mild mucosal thickening is noted in the ethmoid and sphe noid sinuses. There is a small left mastoid effusion. The right mastoid air cells are well pneumatize d. Orbits: The bony orbits are grossly intact. IMPRESSION: 1. No acute intracranial abnormality. 2. Paranasal sinus disease as above. ACT 112: Negative or not required by law. Electronically signed by: Misael Lopez M.D. 03/14/2024 12:09 PM
--- NOTE | 2024-03-14 12:31 | CT Scan Report ---
CT cervical spine wo con CLINICAL HISTORY: pain fall TECHNIQUE: Multidetector row helical CT of the cervical spine was performed without administration of intravenous contrast. Coronal and sagittal reformations were obtained. Automated dose lowering techn iques and/or adjustment according to patient size were utilized for this exam. Comparison: None available at the time of this dictation. FINDINGS: No acute fractures or subluxations are identified. Degenerative changes are seen in the visualized sp ine. The alignment is normal. Soft tissues are unremarkable. IMPRESSION: Degenerative changes without evidence of acute bony injury. ACT 112: Negative or not required by law. Electronically signed by: Armand Tobar M.D. 03/14/2024 12:29 PM
--- NOTE | 2024-03-14 12:37 | CT Scan Report ---
CT SCAN OF THE ABDOMEN AND PELVIS WITH IV CONTRAST CLINICAL HISTORY: Generalized abdominal pain. Hematuria. Fall. COMPARISON STUDY: Abdominal CT dated 12/26/2023 TECHNIQUE: Following the IV administration of 120 cc of Optiray 320, CT scan of the abdomen and pelv is is performed from the lung bases to the proximal femora. Images are reviewed in the axial, sagitta l, and coronal planes. IV contrast was administered without complication. A dose lowering technique w as utilized adhering to the principles of ALARA. The examination is degraded by large body habitus, a nd by streak artifact from the body wall abutting the CT gantry. FINDINGS: Lung bases: The heart is normal in size and without pericardial effusion. The lung bases are clear no ting bibasilar scarring/atelectasis. Gynecomastia is noted. Liver: The contrast-enhanced liver is normal in size and contour. Attenuation is diffusely diminished indicating steatosis. There is no intrahepatic biliary ductal dilatation. The hepatic veins and port al veins are patent. Gallbladder: Unremarkable. Spleen: Normal in size and attenuation. Pancreas: Moderately atrophic and grossly unremarkable. Adrenal glands: Unremarkable. Kidneys: The contrast enhanced kidneys are normal in size and without hydronephrosis. The kidneys enh ance symmetrically. There is a 4 mm nonobstructing right renal calculus. No ureteral stone is seen. Abdominal vasculature: The abdominal aorta is normal in course and caliber. Bowel: No bowel obstruction is seen. There is moderate colonic fecal retention. The appendix is not identified and findings suggest prior appendectomy. Peritoneum: There is no intraperitoneal free air or abdominal ascites. There is a fat-containing umbi lical hernia. There is laxity of the ventral abdominal wall with protrusion of abdominal contents. Lymphadenopathy: None. Pelvic viscera: The bladder is decompressed around a Lloyd catheter and could not be evaluated. The p rostate gland is diminutive. The seminal vesicles are normal as imaged. Skeletal structures: There is a mild chronic compression deformity of L1. No lytic or blastic lesions are seen. There is mild lumbosacral spondylosis. Sclerotic change is noted in the sacroiliac joints. IMPRESSION: 1. No acute infectious or inflammatory findings are identified in the abdomen or pelvis. 2. Hepatic steatosis. 3. Right-sided nephrolithiasis. 4. Additional findings as above. ACT 112: Negative or not required by law. Electronically signed by: Misael Lopez M.D. 03/14/2024 12:36 PM
[2024-03-14] MEDS: ALBUT/IPRATROP 3MG/0.5MG NEB 3 ML VIAL NEB ONE (12:40)
[2024-03-14] MEDS: methylPREDNISolone 125 MG/2 ML VIAL IV STA (12:40)
[2024-03-14] MEDS: FAMOTIDINE 20MG IV PUSH 20 MG/5 ML SYR IV STA (12:44)
--- NOTE | 2024-03-14 13:39 | XRay Report ---
SINGLE VIEW CHEST CLINICAL HISTORY: Hypoxia FINDINGS: An AP, portable, upright chest radiograph is compared to study performed earlier the same d ay 03/14/2024. The examination is degraded by portable technique and apical lordotic positioning. An e [employer] device projects over the heart. The heart is enlarged. The pulmonary vasculature is not con gested. Mild atelectasis is seen at the lung bases. The lungs and pleural spaces are otherwise clear. No pneumothorax is seen. The skeletal structures are osteopenic. There is chronic deformity of the l eft clavicle. IMPRESSION: Cardiomegaly with no active disease in the chest. ACT 112: Negative or not required by law. Electronically signed by: Misael Lopez M.D. 03/14/2024 1:37 PM
--- OUTSIDE RECORDS SUMMARY | 2024-03-14 13:43 | External Medical Summary | Summary of Care ---
Author Name Unknown Organization [facility] Address [address] [place] [address] Phone [phone] Care Team Providers Care Hand Clerical Verifier Name Role Phone Roberto Askew MD Primary Care Provider + Encounter Details Date Type Department Care Team (Late st Contact Info) Description 03/09/2024 Result Scan Unspecified Department Jacob Penn, DO [address] [place] [address] <No scans attached> Allergies Active Allergy Reactions Criticality Noted Date [...] as of this encounter (statuses as of 03/09/2024) Medications Medication Sig Dispensed Refills Start Date End Date Status polyethylene glycol 3350 (MIRALAX) 255 gram powderIndications:Ob stipation DISSOLVE AND DRINK 1 CAPFUL (17GM) IN LIQUID ONCE DAILY. 527 g 5 09/28/2018 Active Additional Information Patient taking differently: 17 g Oral DAILY PRN, Constipation, (No instructions reported), Reported on 01/22/2021 Aspirin 81 MG Tablet Take 81 mg by mouth daily. Active Urea 20 % CREAIndications:Dry skin dermatitis Apply to affected areas twice daily to dry area Soles, legs 113 g 1 12/14/2019 Active Lactobacillus (LACTINEX) chewable tablet Take by mouth 1 Tablet 3 times a day . 04/19/2022 Active hydrOXYzine HCl 25 MG tablet Take 25 mg by mouth 4 times a day as needed. Active nystatin (NYSTOP) 716044 UNIT/GM powderIndications:Cu taneous candidiasis Apply topically to [...] mg under the tongue. Three times daily Active oxygen IN GAS Use 4 L/min(Oxygen) [...] MG Oral TabletIndications:Co ronary artery disease involving assiniboine and sioux coronary artery of assiniboine and sioux heart without angina pectoris Take by [...] for steroid coverage when warranted 1 Each 03/27/2022 Active Mucinex DM 30-600 MG Oral [...] Solution (Duoneb)Indications: COPD, severity to be determined ([facility]),Wheezing Inhale 3 mL via nebulizer in the morning and 3 mL at noon and 3 mL before bedtime. 360 mL 08/10/2022 Active Fluticasone-Salmeter ol 250-50 MCG/ACT Inhalation Aerosol Powder Breath Activated (Advair Diskus)Indications:C OPD, severity to be determined (HCC),Wheezing,Obesi ty hypoventilation syndrome (HCC) Inhale 1 Puff by mouth in the morning and 1 Puff before bedtime. 1 Each 2 08/10/2022 Active Senna 8.6 MG Oral CapsuleIndications:C onstipation, unspecified constipation type Take 8.6 mg by mouth daily as needed for Constipation. 30 Capsule 09/29/2022 Active LORazepam 0.5 MG Oral Tablet (Ativan)Indications: Depression with anxiety Take 1 Tablet by mouth every 8 hours as needed for Anxiety. 21 Tablet 09/30/2022 Active Ondansetron HCl 4 MG Oral [...] day as needed for Cough. 120 mL 12/25/2022 Active Benzonatate 100 MG Oral Capsule (Tessalon Perles) TAKEONE CAPSULE BY MOUTH EVERY MORNING, ONE AT NOON, AND ONE EVERY EVENING, FOR COUGH. 20 Capsule 12/30/2022 Active Metoprolol Succinate ER 50 MG Oral Tablet Extended Release 24 Hour (toPROL XL)Indications:Coron uziel artery disease involving assiniboine and sioux coronary artery of assiniboine and sioux heart without angina pectoris TAKE 1 [...] THE MORNING 90 Tablet 1 04/21/2023 Active Potassium Chloride Terra ER 20 MEQ Oral Tablet Extended ReleaseIndications:H ypokalemia TAKE ONE TABLET EVERY MORNING AND AT BEDTIME 180 Tablet 2 05/11/2023 Active Lactobacillus Probiotic Oral Tablet Take 3 Billion Cells by mouth in the morning. For 10 days. 05/26/2023 Active Cyclobenzaprine HCl 10 MG Oral [...] BEFORE BEDTIME. 270 Tablet 10 07/07/2023 Active Budesonide 0.25 MG/2ML Inhalation Suspension (Pulmicort) Inhale 0.5 mg via nebulizer in the morning and 0.5 mg in the evening. 07/27/2023 Active predniSONE 10 MG Oral Tablet (Deltasone) Take 1 Tablet by mouth in the morning. Follow taper directions. 08/26/2023 Active Tamsulosin HCl 0.4 MG Oral Capsule (Flomax) TAKE 2 CAPSULES EVERY MORNING 180 Capsule 08/31/2023 Active True Metrix Meter w/Device KitIndications:Type 2 diabetes mellitus with hemoglobin A1c goal of less than 8.0% ([facility]) Use 3 times daily as directed 1 Kit 08/31/2023 Active True Metrix Blood Glucose Test [...] Vitro Solution Use as directed 1 Each 08/31/2023 Active Atorvastatin Calcium 80 MG Oral Tablet (Lipitor) TAKE 1 TABLET BY MOUTH IN THE AFTERNOON. 90 Tablet 1 09/06/2023 Active Warfarin Sodium 4 MG Oral Tablet (Coumadin)Indication s:History of pulmonary embolism TAKE 1/2 TO 1 TABLET EVERY DAY DIRECTED BY COUMADIN CLINIC. 180 Tablet 1 11/10/2023 Active Isosorbide Dinitrate 30 MG Oral TabletIndications:Co ronary artery disease involving assiniboine and sioux coronary artery of assiniboine and sioux heart without angina pectoris TAKE 1 TABLET BY MOUTH IN THE MORNING. IN THE MORNING.. 90 Tablet 12/28/2023 Active Torsemide 100 MG Oral Tablet (Demadex) Take 1 Tablet by mouth in the morning. 12/31/2023 Active Bisacodyl 5 MG Oral Tablet Delayed Release (Dulcolax)Indication s:Chronic constipation Take 2 Tablets by mouth daily as needed for Constipation. do not use for over 1 week. Do not cut, crush or chew 12/31/2023 Active glipiZIDE 10 MG Oral Tablet (Glucotrol)Indicatio ns:Diabetes mellitus with nephropathy (HCC) TAKE ONE TABLET BY MOUTH 2 TIMES A DAY 30 MINUTES BEFORE MEALS 60 Tablet 02/15/2024 Active documented as of this encounter (statuses as of 03/09/2024) Active Problems Problem Noted Date Diagnosed Date [...] 01/24/2021 Opioid dependence, uncomplicated 01/22/2021 History of SC (myocardial infarction) 01/22/2021 Morbid obesity with BMI of 50.0-59.9, adult 09/20 History of subdural hematoma 10/04/2020 Gastroesophageal reflux disease without esophagi tis 10/04/2020 History of subarachnoid hemorrhage 10/04/2020 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 10/04/2020 COPD, [...] as of this encounter (statuses as of 03/09/2024) Resolved Problems Problem Noted Date Diagnosed Date [...] Calculus of kidney 08/20/2015 8 Overview: right, [place] Vitamin D deficiency 01/31/2015 018 Body [...] as of this encounter (statuses as of 03/09/2024) Immunizations Name Administration Dates Next Due COVID-19 mRNA, LNP-s, No Pre serve, 2-Dose Series (Mural.ly) 01/02/2021,12/05/2020 DTP Vaccine 07/19/2017,04/03/2014 Hepatitis B, 20+ [...] Care Team (Late st Contact Info) Description 03/14/2024 7:00 AM EDT Laboratory Lab Mobile Phlebotomy [facility] [address] [place] [address] [facility] Mobile Home Draw [address] [place] [address] 03/15/2024 6:00 AM EDT Anticoagulation Centralized Clinical Pharmacy Services, Ciera Griffin [address] [place] [address] [place] [address] [facility] 58 60 [facility] [place] [address] Health Maintenance Due Date Last Done Comments DISCUSS TOBACCO CESSATION (REFER TO SMARTSET #5796) 1970 HIV Screening 1985 O2 ASSESSMENT COMPLETED IN PAST YEAR FOR COPD 1988 Pneumococcal Vaccine: Pediatrics (0 to 5 Years) and At-Risk Patients (6 to 64 Years) (2 of 2 - PCV) 05/22/2010 05/22/2009 Cologuard 2015 Fecal Occult Blood Test 2015 Sigmoidoscopy 2015 *ADVANCE DIRECTIVE NOT ON FILE 02/03/2020 Lung Cancer Screening 2020 02/10/2019 , 07/19/2017, 05/09/2017, Additional history exists Zoster Vaccines (1 of 2) 2020 Hepatitis B (3 of 3 - 19+ 3-dose series) 10/11/2020 06/05/2020, 04/10/2020 Diabetic Foot Exam 12/13/2020 12/14/2019, 1 11/03/2014, 09/03/2014 Albumin/Creatinine Ratio 04/10/2021 04/10/2020 Depression Monitoring 05/01/2021 05/01/2020 Diabetic Eye Exam 11/19/2021 11/19/2020, 04/10/2020 HbA1c [...] this encounter Medical Devices Implanted Type Area Ceramic Saw Tender Device Identifier Shelf Expiration Date Model / Serial / Lot Tube Flex 3.0x2.5 [id number] - [id number] Implanted:Qty: 1 on 12/07/2014 by Juancarlos Trinidad MD at [place] [facility] [place] Left: Finger LANDON : ORTHOPAEDICS 11/18/2015 [id number] / / [id number] documented as of this encounter Procedures Procedure Name Priority Date/Time Associated Diagnosis Comments CARDIOLOGY SCANNED RESULT 03/09/2024 documented in this encounter Results * CARDIOLOGY SCANNED RESULT (03/09/2024) 03/09/2024 Jacob Penn OTHER documented in this encounter Advance Directives * Full Code (Latest Code Status on File) Date Activated Date Inactivated Comments 01/17/2020 3:57 PM 01/20/2020 8:45 PM This order re flects the patients wishes and were consensually agreed upon. * Full Code Date Activated Date Inactivated Comments 11/18/2019 9:58 AM 12/04/2019 9:49 PM This order r eflects the patients wishes and were consensually agreed upon. Question Answer Comments Discussion of Advance Directives occurred with: Not Discussed * Full Code Date Activated Date Inactivated Comments 11/14/2016 9:52 PM 11/17/2016 10:08 PM This order reflects the patients wishes and were consensually agreed upon. Question Answer Comments Discussion of Advance Directives occurred with: Not Discussed Does the patient have a Living Will? No Does the patient have Health Care Power of Attor kenia? No Healthcare Agents on File Name Relationship Healthcare Agent Relationship Communication Estrella Seth Other - (no specific identity) Health Care Power of Program Medical Director Care Teams Hand Clerical Verifier Relationship Specialty Start Date End Date Roberto Askew MD [address] [facility] [place] [address] PCP - General Internal Medicine 04/10/20 documented as of this encounter
--- OUTSIDE RECORDS SUMMARY | 2024-03-14 13:43 | External Medical Summary ---
Author Name Unknown Address Unknown Organization [facility] [address] [place] [address] Laboratory Report Ordering Provider Test Date Status ABATULIO 02/15/2024 08:15:00 Final Standing order for pt/inr. < br/>Please draw pt/inr every 1 to 4 weeks as requested
Results to [facility]

Warfarin Therapy
INR: 2.0-3.0 conventional anticoagulation
INR: 2.5-3.5 high intensity anticoagulation Observation Date Value Abnormality Reference (Units ) Status PT 02/15/2024 08:15:00 29.7 Above high normal 11 .6-15.2 (seconds) Final INR 02/15/2024 08:15:00 2.8 Above high normal 0. 8-1.2 Final Performing Location [facility] [address] [place] [address]
--- OUTSIDE RECORDS SUMMARY | 2024-03-14 13:43 | External Medical Summary | Summary of Care ---
Author Name Unknown Organization [facility] Address [address] [place] [address] Phone [phone] Care Team Providers Care Professor Of Fine Art Name Role Phone Roberto Askew MD Primary Care Provider + Reason for Visit * Reason Comments Dosage Adjustment Via Phone (anticoag Cl inic) Encounter Details Date Type Department Care Team (Latest Contact Info) Description 03/07/2024 6:00 PM EDT Anticoagulation Centralized Clinical Pharmacy Services, Ciera Griffin [address] [place] [address] [place] [address] [place] [address] [address] [facility] [place] [address] History of pulmonary embolism* Allergies Active Allergy [...] as of this encounter (statuses as of 03/07/2024) Medications Medication Sig Dispensed Refills Start Date [...] a day as needed. Active nystatin (NYSTOP) 634707 UNIT/GM powderIndications:Cu taneous candidiasis Apply topically to [...] COPD, group C, by GOLD 2017 classification ([facility]),COPD, group D, by GOLD 2017 classification ([facility]) USE 2 PUFFS BY MOUTH EVERY 4 HOURS NEEDED SHORT OF BREATH 6.7 g 5 11/24/2021 Active Magnesium Oxide 400 (241.3 Mg) MG Oral TabletIndications:Co ronary artery disease involving swinomish coronary artery of swinomish heart without angina pectoris Take by mouth [...] Hour (toPROL XL)Indications:Coron uziel artery disease involving swinomish coronary artery of swinomish heart without angina pectoris TAKE 1 & [...] hemoglobin A1c goal of less than 8.0% ([facility]) Use 3 times daily as directed 1 Kit 08/31/2023 Active True Metrix Blood Glucose Test In Vitro Strip (Glucose Blood)Indications:Ty pe 2 diabetes mellitus with hemoglobin A1c goal of less than 8.0% ([facility]) Use 3 times daily as directed 300 Strip 3 08/31/2023 Active TRUEplus Lancets 33GIndications:Type 2 diabetes mellitus with hemoglobin A1c goal of less than 8.0% ([facility]) Use 3 times daily as [...] MG Oral TabletIndications:Co ronary artery disease involving swinomish coronary artery of swinomish heart without angina pectoris TAKE 1 TABLET [...] as of this encounter (statuses as of 03/07/2024) Active Problems Problem Noted Date Diagnosed Date [...] hemorrhage 10/04/2020 Coronary artery disease invo lving swinomish heart without angina pectoris 10/04/2020 COPD, group [...] as of this encounter (statuses as of 03/07/2024) Resolved Problems Problem Noted Date Diagnosed Date [...] Calculus of kidney 08/20/2015 8 Overview: right, [place] CT Vitamin D deficiency 01/31/2015 018 Body [...] as of this encounter (statuses as of 03/07/2024) Immunizations Name Administration Dates Next Due COVID-19 mRNA, LNP-s, No Pre serve, 2-Dose Series (Newmerix) 01/02/2021,12/05/2020 DTP Vaccine 07/19/2017,04/03/2014 Hepatitis B, 20+ [...] this encounter Progress Notes * Stephani Soto, plant technical specialist - 03/07/2024 1:07 PM EDT Contacts Type Contact Phone/Fax 03/07/2024 01:05 PM EDT Phone (Outgoing) Stanton Milner (Self) [phone] (H) Subjective Patient Findings Negatives: Signs/symptoms of [...] as noted by Pharmacist: Yes ARTEM TRACY 03/07/2024, 1:07 PM * Keren Sanchez [facility] - 03/07/2024 1:02 PM EDT Images from the original note were not included. Coumadin Clinic (region specific) Objective Current Warfarin Dose As of 03/07/2024 Warfarin maintenance plan: 4 mg (4 mg x 1) every day INR Result As of 03/07/2024 INR goal: 2.0-3.0 INR used for dosin.1 (03/07/2024) Assessment & Plan Warfarin Plan As of 03/07/2024 Full warfarin instructions: 03/07: Hold; 03/08: Hold; Otherwise 4 mg every day Next INR check: 03/14/2024 Repeat PT/INR in 1 week(s) Weekly dose: not changed Additional Dosing Information: Description [facility] Tech to contact patient with dose instructions as noted. Keren Sanchez RPh 03/07/2024, 1:03 PM documented in this encounter Plan of Treatment Health Maintenance Due Date Last Done Comments DISCUSS TOBACCO CESSATION (REFER TO SMARTSET #5074) 1970 HIV Screening 1985 O2 ASSESSMENT COMPLETED [...] this encounter Medical Devices Implanted Type Area Breakdown Mill Operator Device Identifier Shelf Expiration Date Model / Serial / Lot Tube Flex 3.0x2.5 [id number] - [id number] Implanted:Qty: 1 on 12/07/2014 by Juancarlos Trinidad MD at [facility] Left: Finger LANDON : ORTHOPAEDICS 11/18/2015 [id number] / / [id number] documented as of this encounter Visit Diagnoses Diagnosis History of pulmonary embolism- Primary Personal history of pulmonary embolism documented in this encounter Advance Directives * [...] (no specific identity) Health Care Power of Diamond Sander Care Teams Professor Of Fine Art Relationship Specialty Start Date End Date Roberto Askew MD [address] [place] [address] PCP - General Internal Medicine 04/10/20 documented as of this encounter
--- OUTSIDE RECORDS SUMMARY | 2024-03-14 13:43 | External Medical Summary | Summary of Care ---
Author Name Unknown Organization [facility] Address [address] [place] [address] Phone [phone] Care Team Providers Care Furnace Checker Name Role Phone Roberto Askew MD Primary Care Provider + Reason for Visit * Reason Comments Dosage Adjustment Via Phone (anticoag Cl inic) Encounter Details Date Type Department Care Team (Latest Contact Info) Description 02/02/2024 6:00 AM EDT Anticoagulation Pharmacy Call Center [address] [place] [address] [facility] [address] [facility] [place] [address] History of pulmonary embolism* Allergies Active Allergy [...] as of this encounter (statuses as of 02/02/2024) Medications Medication Sig Dispensed Refills Start Date [...] day as needed. 0 Active nystatin (NYSTOP) 758206 UNIT/GM powderIndications:Cu taneous candidiasis Apply topically to [...] MG Oral TabletIndications:Co ronary artery disease involving kaw coronary artery of kaw heart without angina pectoris Take by mouth [...] FOR COUGH. 20 Capsule 0 12/30/2022 Active Metoprolol Succinate ER 50 MG Oral Tablet Extended Release 24 Hour (toPROL XL)Indications:Coron uziel artery disease involving kaw coronary artery of kaw heart without angina pectoris TAKE 1 & [...] than 8.0% ([facility]) Use 3 times daily as directed 1 Kit 0 08/31/2023 Active True Metrix Blood Glucose Test In Vitro Strip (Glucose Blood)Indications:Ty pe 2 diabetes mellitus with hemoglobin A1c goal of less than 8.0% ([facility]) Use 3 times daily as directed 300 Strip 3 08/31/2023 Active TRUEplus Lancets 33GIndications:Type 2 diabetes mellitus with hemoglobin A1c goal of less than 8.0% ([facility]) Use 3 times daily as directed 300 Each 3 08/31/2023 Active BD Swab Single Use Regular Pad Use 3 times daily as directed 300 Each 3 08/31/2023 Active True Metrix Level 1 Low In Vitro Solution Use as directed 1 Each 0 08/31/2023 Active Atorvastatin Calcium 80 MG Oral Tablet (Lipitor) TAKE 1 TABLET BY MOUTH IN THE AFTERNOON. 90 Tablet 1 09/06/2023 Active Warfarin Sodium 4 MG Oral Tablet (Coumadin)Indication s:History of pulmonary embolism TAKE 1/2 TO 1 TABLET EVERY DAY DIRECTED BY COUMADIN CLINIC. 180 Tablet 1 11/10/2023 Active Isosorbide Dinitrate 30 MG Oral TabletIndications:Co ronary artery disease involving kaw coronary artery of kaw heart without angina pectoris TAKE 1 TABLET BY MOUTH IN THE MORNING. IN THE MORNING.. 90 Tablet 0 12/28/2023 Active Torsemide 100 MG Oral Tablet (Demadex) Take 1 Tablet by mouth in the morning. 0 12/31/2023 Active Bisacodyl 5 MG Oral Tablet Delayed Release (Dulcolax)Indication s:Chronic constipation Take 2 Tablets by mouth daily as needed for Constipation. do not use for over 1 week. Do not cut, crush or chew 0 12/31/2023 Active glipiZIDE 10 MG Oral Tablet (Glucotrol)Indicatio ns:Diabetes mellitus with nephropathy (HCC) TAKE ONE TABLET BY MOUTH 2 TIMES A DAY 30 MINUTES BEFORE MEALS 60 Tablet 0 01/14/2024 Active documented as of this encounter (statuses as of 02/02/2024) Active Problems Problem Noted Date Diagnosed Date [...] hemorrhage 10/04/2020 Coronary artery disease invo lving kaw heart without angina pectoris 10/04/2020 COPD, group [...] as of this encounter (statuses as of 02/02/2024) Resolved Problems Problem Noted Date Diagnosed Date [...] Calculus of kidney 08/20/2015 8 Overview: right, [place] CT Vitamin D deficiency 01/31/2015 018 Body [...] as of this encounter (statuses as of 02/02/2024) Immunizations Name Administration Dates Next Due COVID-19 mRNA, LNP-s, No Pre serve, 2-Dose Series (Ofuz) 01/02/2021,12/05/2020 DTP Vaccine 07/19/2017,04/03/2014 Hepatitis B, 20+ [...] as of this encounter Progress Notes * Erika Shipley CPhT - 02/02/2024 9:41 AM EDT Contacts Type Contact Phone/Fax 02/02/2024 09:39 AM EDT Phone (Outgoing) Stanton Milner (Self) [phone] (H) Left Message Subjective Advised patient to contact Anticoagulation Clinic if any unusual bruising or bleeding, recent illness, changes in medication, or questions/concerns. PT/INR results, Coumadin dose instructions, and next PT/INR date communicated as noted by Pharmacist: Yes ERIKA SHIPLEY CPhT 02/02/2024, 9:41 AM * Keren Sanchez RPh - 02/02/2024 8:43 AM EDT Coumadin Clinic (region specific) Objective Current Warfarin Dose As of 02/02/2024 Warfarin maintenance plan: 4 mg (4 mg x 1) every day INR Result As of 02/02/2024 INR goal: 2.0-3.0 INR used for dosin.8 (02/01/2024) Assessment & Plan Warfarin Plan As of 02/02/2024 Full warfarin instructions: 4 mg every day No change documented: Keren Sanchez RPh Next INR check: 02/15/2024 Repeat PT/INR in 2 week(s) Weekly dose: not changed Additional Dosing Information: Description L([facility]) - pt prefers [facility] at this time Tech to contact patient with dose instructions as noted. Keren Sanchez RPh 02/02/2024, 8:43 AM documented in this encounter Plan of Treatment Upcoming Encounters Date Type Department Care Team (Late st Contact Info) Description 02/16/2024 6:00 AM EDT Anticoagulation Pharmacy Call Center [address] [facility] [place] [address] [facility] [address] [facility] [place] [address] Health Maintenance Due Date Last Done Comments DISCUSS TOBACCO CESSATION (REFER TO SMARTSET #4702) 1970 HIV Screening 1985 O2 ASSESSMENT COMPLETED [...] 1 11/03/2014, 09/03/2014 Albumin/Creatinine Ratio 04/10/2021 04/10/2020 Diabetic Eye Exam 11/19/2021 11/19/2020, 04/10/2020 HbA1c [...] encounter Medical Devices Implanted Type Area Manager Corporate Responsibility Device Identifier Shelf Expiration Date Model / Serial / Lot Tube Flex 3.0x2.5 [id number] - [id number] Implanted:Qty: 1 on 12/07/2014 by Juancarlos Trinidad MD at [facility] [place] [facility] Left: Finger LANDON : ORTHOPAEDICS 11/18/2015 [id number] / / [id number] documented as of this encounter Visit Diagnoses [...] the patient have Health Care Power of [place]? No Healthcare Agents on File Name Relationship Healthcare Agent Relationship Communication Estrella Seth Other - (no specific identity) Health Care Power of [place] Care Teams Furnace Checker Relationship Specialty Start Date End Date Roberto Askew MD [address] [place] [address] PCP - General Internal Medicine 04/10/20 documented as of this encounter
--- OUTSIDE RECORDS SUMMARY | 2024-03-14 13:43 | External Medical Summary | Summary of Care ---
Author Name Unknown Organization [facility] Address [address] [place] [address] Phone [phone] Care Team Providers Care Business Systems Architect Name Role Phone Roberto Griffin MD Primary Care Provider + Reason for Visit * Reason Comments eRx-Medication Refill Encounter Details Date Type Department Care Team (Late st Contact Info) Description 02/13/2024 Refill General Internal Medicine [facility] [address] [facility] [place] [address] Roberto Griffin MD [address] [place] [address] Diabetes mellitus with nephropathy (HCC) Allergies Active [...] as of this encounter (statuses as of 02/15/2024) Medications Medication Sig Dispensed Refills Start Date [...] 1 Tablet 3 times a day . 2 Active hydrOXYzine HCl 25 MG tablet Take 25 mg by mouth 4 times a day as needed. Active nystatin (NYSTOP) 664989 UNIT/GM powderIndications:C utaneous candidiasis Apply topically to [...] :COPD, group C, by GOLD 2017 classification ([facility]),COPD, group D, by GOLD 2017 classification ([facility]) USE 2 PUFFS BY MOUTH EVERY 4 HOURS NEEDED SHORT OF BREATH 6.7 g 5 2 Active Magnesium Oxide 400 (241.3 Mg) MG Oral TabletIndications:C oronary artery disease involving spokane coronary artery of [place] heart without angina pectoris Take by mouth [...] for steroid coverage when warranted 1 Each 2 Active Mucinex DM 30-600 MG Oral [...] and 3 mL before bedtime. 360 mL 2 Active Fluticasone-Salmete rol 250-50 MCG/ACT Inhalation Aerosol Powder Breath Activated (Advair Diskus)Indications: COPD, severity to be determined (HCC),Wheezing,Obes ity hypoventilation syndrome (HCC) Inhale 1 Puff by mouth in the morning and 1 Puff before bedtime. 1 Each 2 2 Active Senna 8.6 MG Oral CapsuleIndications: Constipation, unspecified constipation type Take 8.6 mg by mouth daily as needed for Constipation. 30 Capsule 3 Active LORazepam 0.5 MG Oral Tablet (Ativan)Indications :Depression with anxiety Take 1 Tablet by mouth every 8 hours as needed for Anxiety. 21 Tablet 3 Active Ondansetron HCl 4 MG Oral [...] day as needed for Cough. 120 mL 3 Active Benzonatate 100 MG Oral Capsule (Tessalon Gabriel) TAKEONE CAPSULE BY MOUTH EVERY MORNING, ONE AT NOON, AND ONE EVERY EVENING, FOR COUGH. 20 Capsule 3 Active Metoprolol Succinate ER 50 MG Oral Tablet Extended Release 24 Hour (toPROL XL)Indications:Freddie nary artery disease involving spokane coronary artery of sp[place] heart without angina pectoris TAKE 1 & [...] THE MORNING 90 Tablet 1 3 Active Potassium Chloride Terra ER 20 MEQ Oral Tablet Extended ReleaseIndications: Hypokalemia TAKE ONE TABLET EVERY MORNING AND AT BEDTIME 180 Tablet 2 3 Active Lactobacillus Probiotic Oral Tablet Take 3 Billion Cells by mouth in the morning. For 10 days. 3 Active Cyclobenzaprine HCl 10 MG Oral [...] BEFORE BEDTIME. 270 Tablet 10 3 Active Budesonide 0.25 MG/2ML Inhalation Suspension (Pulmicort) Inhale 0.5 mg via nebulizer in the morning and 0.5 mg in the evening. 3 Active predniSONE 10 MG Oral Tablet (Deltasone) Take 1 Tablet by mouth in the morning. Follow taper directions. 3 Active Tamsulosin HCl 0.4 MG Oral Capsule (Flomax) TAKE 2 CAPSULES EVERY MORNING 180 Capsule 3 Active True Metrix Meter w/Device KitIndications:Type 2 diabetes mellitus with hemoglobin A1c goal of less than 8.0% ([facility]) Use 3 times daily as directed 1 Kit 3 Active True Metrix Blood Glucose Test [...] Vitro Solution Use as directed 1 Each 3 Active Atorvastatin Calcium 80 MG Oral Tablet (Lipitor) TAKE 1 TABLET BY MOUTH IN THE AFTERNOON. 90 Tablet 1 3 Active Warfarin Sodium 4 MG Oral Tablet (Coumadin)Indicatio ns:History of pulmonary embolism TAKE 1/2 TO 1 TABLET EVERY DAY DIRECTED BY COUMADIN CLINIC. 180 Tablet 1 4 Active Isosorbide Dinitrate 30 MG Oral TabletIndications:C oronary artery disease involving [place] coronary artery of [place] heart without angina pectoris TAKE 1 TABLET BY MOUTH IN THE MORNING. IN THE MORNING.. 90 Tablet 4 Active Torsemide 100 MG Oral Tablet (Demadex) Take 1 Tablet by mouth in the morning. 4 Active Bisacodyl 5 MG Oral Tablet Delayed Release (Dulcolax)Indicatio ns:Chronic constipation Take 2 Tablets by mouth daily as needed for Constipation. do not use for over 1 week. Do not cut, crush or chew 4 Active glipiZIDE 10 MG Oral Tablet (Glucotrol)Indicati ons:Diabetes mellitus with nephropathy (HCC) TAKE ONE TABLET BY MOUTH 2 TIMES A DAY 30 MINUTES BEFORE MEALS 60 Tablet 4 Active glipiZIDE 10 MG Oral Tablet (Glucotrol)Indicati ons:Diabetes mellitus with nephropathy (HCC) TAKE ONE TABLET BY MOUTH 2 TIMES A DAY 30 MINUTES BEFORE MEALS 60 Tablet 4 024 Discontinued documented as of this encounter (statuses as of 02/15/2024) Active Problems Problem Noted Date Diagnosed Date [...] hemorrhage 10/04/2020 Coronary artery disease invo lving spokane heart without angina pectoris 10/04/2020 COPD, group [...] as of this encounter (statuses as of 02/15/2024) Resolved Problems Problem Noted Date Diagnosed Date [...] Calculus of kidney 08/20/2015 8 Overview: right, [place] CT Vitamin D deficiency 01/31/2015 018 Body [...] as of this encounter (statuses as of 02/15/2024) Immunizations Name Administration Dates Next Due COVID-19 mRNA, LNP-s, No Pre serve, 2-Dose Series ([employer]) 01/02/2021,12/05/2020 DTP Vaccine 07/19/2017,04/03/2014 Hepatitis B, 20+ [...] Telephone Encounter - Roberto Griffin MD - 02/15/2024 12:27 PM EDT Signed Prescriptions: Disp Refills glipiZIDE 10 MG Oral Tablet (Glucotrol) 60 Tab*0 Sig: TAKE ONE TABLET BY MOUTH 2 TIMES A DAY 30 MINUTES BEFORE MEALSAuthorizing Provider: ROBERTO GRIFFIN----- * Telephone Encounter - Siva Banuelos [facility] - 02/15/2024 12:16 PM EDTPending Prescriptions: Disp Refills glipiZIDE 10 MG Oral Tablet [Pharmacy Med *60 Tab*0 Sig: TAKE ONE TABLET BY MOUTH 2 TIMES A DAY 30 MINUTES BEFORE MEALS * Telephone Encounter - Siva Banuelos [facility] - 02/15/2024 12:16 PM EDT Unable to authorize medication refills at this time. Patient did not meet protocol requirements. Patient needs current well office visit and labs. Please approve if appropriate. Thanks, Siva Banuelos, R.Ph. Clinical Pharmacist Telepharmacy [phone] [id number] 02/15/2024,12:16 PM Pending Prescriptions: Disp Refills glipiZIDE 10 MG Oral Tablet [Pharmacy Med *60 Tab*0 Sig: TAKE ONE TABLET BY MOUTH 2 TIMES A DAY 30 MINUTES BEFORE MEALS Last Visit: 08/10/2022 (in office), 12/10/2021 (telemedicine) Next Visit: Visit date not found If no future appointments scheduled, and last appointment is greater than a year ago, please schedule patient for a follow-up appointment Last date the medication was ordered: 01-14-24 Pharmacy: [id number] [id number] [facility] Is this request for a controlled substance?No [...] Pharmacy Call Center [address] [place] [address] [facility] [address] [facility] [place] [address] Health Maintenance Due Date Last Done Comments DISCUSS TOBACCO CESSATION (REFER TO SMARTSET #0925) 1970 HIV Screening 1985 O2 ASSESSMENT COMPLETED [...] encounter Medical Devices Implanted Type Area Firer Tunnel Kiln Device Identifier Shelf Expiration Date Model / Serial / Lot Tube Flex 3.0x2.5 [id number] - [id number] Implanted:Qty: 1 on 12/07/2014 by Juancarlos Trinidad MD at [facility] Left: Finger LANDON : ORTHOPAEDICS 11/18/2015 [id number] / / [id number] documented as of this encounter Visit Diagnoses Diagnosis Diabetes mellitus with nephropathy (HCC) Type II or unspecified type diabetes mellitus with renal manifestations, not stated as uncontrolled documented in this encounter Advance Directives * [...] (no specific identity) Health Care Power of Shovel Oiler Care Teams Business Systems Architect Relationship Specialty Start Date End Date Roberto Griffin MD [address] [place] [address] PCP - General Internal Medicine 04/10/20 documented as of this encounter
--- OUTSIDE RECORDS SUMMARY | 2024-03-14 13:43 | External Medical Summary | Summary of Care ---
Author Name Unknown Organization [facility] Address [address] [place] [address] Phone [phone] Care Team Providers Care Eyelet Riveter Name Role Phone Roberto Askew MD Primary Care Provider + Reason for Visit * Reason Comments Dosage Adjustment Via Phone (anticoag Cl inic) Encounter Details Date Type Department Care Team (Latest Contact Info) Description 02/16/2024 6:00 AM EDT Anticoagulation Pharmacy Call Center [address] [place] [address] [facility] [address] [facility] [address] History of pulmonary embolism* Allergies Active Allergy [...] as of this encounter (statuses as of 02/16/2024) Medications Medication Sig Dispensed Refills Start Date [...] a day as needed. Active nystatin (NYSTOP) 213106 UNIT/GM powderIndications:Cu taneous candidiasis Apply topically to [...] MG Oral TabletIndications:Co ronary artery disease involving [place] coronary artery of [place] heart without angina pectoris Take by mouth [...] Hour (toPROL XL)Indications:Coron uziel artery disease involving [place] coronary artery of [place] heart without angina pectoris TAKE 1 & [...] 8.0% ([facility]) Use 3 times daily as directed 1 Kit 08/31/2023 Active True Metrix Blood Glucose Test In Vitro Strip (Glucose Blood)Indications:Ty pe 2 diabetes mellitus with hemoglobin A1c goal of less than 8.0% ([facility]) Use 3 times daily as directed 300 Strip 3 08/31/2023 Active TRUEplus Lancets 33GIndications:Type 2 diabetes mellitus with hemoglobin A1c goal of less than 8.0% ([facility]) Use 3 times daily as [...] MG Oral TabletIndications:Co ronary artery disease involving [place] coronary artery of [place] heart without angina pectoris TAKE 1 TABLET [...] as of this encounter (statuses as of 02/16/2024) Active Problems Problem Noted Date Diagnosed Date [...] hemorrhage 10/04/2020 Coronary artery disease invo lving tonawanda heart without angina pectoris 10/04/2020 COPD, group [...] as of this encounter (statuses as of 02/16/2024) Resolved Problems Problem Noted Date Diagnosed Date [...] Calculus of kidney 08/20/2015 8 Overview: right, [place] CT Vitamin D deficiency 01/31/2015 018 Body [...] as of this encounter (statuses as of 02/16/2024) Immunizations Name Administration Dates Next Due COVID-19 mRNA, LNP-s, No Pre serve, 2-Dose Series ([employer]) 01/02/2021,12/05/2020 DTP Vaccine 07/19/2017,04/03/2014 Hepatitis B, 20+ [...] as of this encounter Progress Notes * Sarahy Seals, rehab care assistant - 02/16/2024 12:53 PM EDT Contacts Type Contact Phone/Fax 02/16/2024 12:49 PM EDT Phone (Outgoing) Stanton Milner (Self) [phone] (H) Spoke to Patient Subjective Patient Findings [...] date communicated as noted by Pharmacist: Yes SARAHY SEALS CPhT 02/16/2024, 12:53 PM * Becky Goodwin RPh - 02/16/2024 9:50 AM EDT Coumadin Clinic (region specific) Objective Current Warfarin Dose As of 02/16/2024 Warfarin maintenance plan: 4 mg (4 mg x 1) every day INR Result As of 02/16/2024 INR goal: 2.0-3.0 INR used for dosin.8 (02/15/2024) Assessment & Plan Warfarin Plan As of 02/16/2024 Full warfarin instructions: 4 mg every day No change documented: Becky Goodwin RPh Next INR check: 03/07/2024 Repeat PT/INR in 3 week(s) Weekly dose: not changed Additional Dosing Information: Description [facility]) - pt prefers [facility] at this time Tech to contact patient with dose instructions as noted. Becky Goodwin RPh 02/16/2024, 9:50 AM documented in this encounter Plan of Treatment Upcoming Encounters Date Type Department Care Team (Late st Contact Info) Description 03/07/2024 7:00 AM EDT Laboratory Lab Mobile Phlebotomy [facility] [address] [place] [address] [facility] Mobile [facility] Draw [address] [place] [address] 03/08/2024 6:00 AM EDT Anticoagulation Pharmacy Call Center WB [address] [facility] [place] [address] [facility] [address] [facility] [place] [address] Health Maintenance Due Date Last Done Comments DISCUSS TOBACCO CESSATION (REFER TO SMARTSET #0926) 1970 HIV Screening 1985 O2 ASSESSMENT COMPLETED [...] this encounter Medical Devices Implanted Type Area Fiscal Services Director Device Identifier Shelf Expiration Date Model / Serial / Lot Tube Flex 3.0x2.5 [id number] - [id number] Implanted:Qty: 1 on 12/07/2014 by Juancarlos Trinidad MD at [facility] Left: Finger [employer]ON : ORTHOPAEDICS 11/18/2015 [id number] / / [id number] documented as of this encounter Visit Diagnoses [...] (no specific identity) Health Care Power of Meat Manager Care Teams Eyelet Riveter Relationship Specialty Start Date End Date Roberto Askew MD [address] [place] [address] PCP - General Internal Medicine 04/10/20 documented as of this encounter
--- OUTSIDE RECORDS SUMMARY | 2024-03-14 13:43 | External Medical Summary ---
Author Name Unknown Address Unknown Organization [id number] [address] [place] [id number] Laboratory Report Ordering Provider Test Date Status ABADOMENICALIONEL 03/07/2024 08:24:00 Final Standing order for pt/inr. < br/>Please draw pt/inr every 1 to 4 weeks as requested
Results to [facility] Anticoagulation [facility]

Warfarin Therapy
INR: 2.0-3.0 conventional anticoagulation
INR: 2.5-3.5 high intensity anticoagulation Observation Date Value Abnormality Reference (Units ) Status PT 03/07/2024 08:24:00 40.0 Above high normal 11 .6-15.2 (seconds) Final INR 03/07/2024 08:24:00 4.1 Above high normal 0. 8-1.2 Final Performing Location [facility] [address] [place] [id number]
--- OUTSIDE RECORDS SUMMARY | 2024-03-14 13:44 | External Medical Summary | Summary of Care ---
Author Name Unknown Organization [facility] Address [address] [place] [address] Phone [phone] Care Team Providers Care Log Marker Name Role Phone Roberto Askew MD Primary Care Provider + Reason for Visit * Reason Comments eRx-Medication Refill Encounter Details Date Type Department Care Team (Late st Contact Info) Description 01/27/2024 Refill General Internal Medicine [facility] [address] [place] [address] Roberto Askew MD [address] [place] [address] Diabetes mellitus with nephropathy (HCC) Allergies Active [...] as of this encounter (statuses as of 01/28/2024) Medications Medication Sig Dispensed Refills Start Date [...] day as needed. 0 Active nystatin (NYSTOP) 838644 UNIT/GM powderIndications:Cu taneous candidiasis Apply topically to [...] by GOLD 2017 classification ([facility]),COPD, group D, by GOLD 2017 classification ([facility]) USE 2 PUFFS BY MOUTH EVERY 4 HOURS NEEDED SHORT OF BREATH 6.7 g 5 11/24/2021 Active Magnesium Oxide 400 (241.3 Mg) MG Oral TabletIndications:Co ronary artery disease involving viejas coronary artery of viejas heart without angina pectoris Take by mouth [...] Hour (toPROL XL)Indications:Coron uziel artery disease involving viejas coronary artery of viejas heart without angina pectoris TAKE 1 & [...] goal of less than 8.0% ([facility]) Use 3 times daily as directed 1 Kit 0 08/31/2023 Active True Metrix Blood Glucose Test In Vitro Strip (Glucose Blood)Indications:Ty pe 2 diabetes mellitus with hemoglobin A1c goal of less than 8.0% ([facility]) Use 3 times daily as directed 300 Strip 3 08/31/2023 Active TRUEplus Lancets 33GIndications:Type 2 diabetes mellitus with hemoglobin A1c goal of less than 8.0% ([facility]) Use 3 times daily as directed [...] MG Oral TabletIndications:Co ronary artery disease involving viejas coronary artery of viejas heart without angina pectoris TAKE 1 TABLET [...] as of this encounter (statuses as of 01/28/2024) Active Problems Problem Noted Date Diagnosed Date [...] hemorrhage 10/04/2020 Coronary artery disease invo lving viejas heart without angina pectoris 10/04/2020 COPD, group [...] as of this encounter (statuses as of 01/28/2024) Resolved Problems Problem Noted Date Diagnosed Date [...] Calculus of kidney 08/20/2015 8 Overview: right, [place] CT Vitamin D deficiency 01/31/2015 018 Body [...] as of this encounter (statuses as of 01/28/2024) Immunizations Name Administration Dates Next Due COVID-19 mRNA, LNP-s, No Pre serve, 2-Dose Series ([employer]) 01/02/2021,12/05/2020 DTP Vaccine 07/19/2017,04/03/2014 Hepatitis B, 20+ [...] encounter Miscellaneous Notes * Telephone Encounter - Norm Saha [facility] - 01/28/2024 12:51 PM EDT Refused Prescriptions: Disp Refills glipiZIDE 10 MG Oral Tablet (Glucotrol) 60 Tab*0 Sig: TAKE ONE TABLET BY MOUTH 2 TIMES A DAY 30 MINUTES BEFORE MEALSRefused By: NORM SAHA for Refusal: Too soon documented in this encounter Plan of Treatment Upcoming Encounters Date Type Department Care Team (Late st Contact Info) Description 02/01/2024 7:00 AM EDT Laboratory Lab Mobile Phlebotomy [facility] [address] [facility] [place] [address] [facility] Mobile Home Draw [address] [facility] [place] [address] 02/02/2024 6:00 AM EDT Anticoagulation Pharmacy Call Center [address] [facility] [place] [address] [facility], [facility] [address] [facility] [place] [address] Health Maintenance Due Date Last Done Comments DISCUSS TOBACCO CESSATION (REFER TO SMARTSET #7941) 1970 HIV Screening 1985 O2 ASSESSMENT COMPLETED [...] this encounter Medical Devices Implanted Type Area Top Lifter Device Identifier Shelf Expiration Date Model / Serial / Lot Tube Flex 3.0x2.5 [id number] - [id number] Implanted:Qty: 1 on 12/07/2014 by Juancarlos Trinidad MD at [facility] Left: Finger LANDON : ORTHOPAEDICS 11/18/2015 [id number] / / [id number] documented as of this encounter Visit Diagnoses [...] the patient have Health Care Power of Insulation Supervisor? No Healthcare Agents on File Name Relationship Healthcare Agent Relationship Communication Estrella Seth Other - (no specific identity) Health Care Power of Insulation Supervisor Care Teams Log Marker Relationship Specialty Start Date End Date Roberto Askew MD [address] [place] [address] PCP - General Internal Medicine 04/10/20 documented as of this encounter
--- OUTSIDE RECORDS SUMMARY | 2024-03-14 13:44 | External Medical Summary ---
Author Name Unknown Address Unknown Organization [facility] [address] [place] [address] Laboratory Report Ordering Provider Test Date Status ABATULIO 01/24/2024 07:54:00 Final Standing order for pt/inr. < br/>Please draw pt/inr every 1 to 4 weeks as requested
Results to [facility] Anticoagulation Clinic

Warfarin Therapy
INR: 2.0-3.0 conventional anticoagulation
INR: 2.5-3.5 high intensity anticoagulation Observation Date Value Abnormality Reference (Units ) Status PT 01/24/2024 07:54:00 21.6 Above high normal 11 .6-15.2 (seconds) Final INR 01/24/2024 07:54:00 1.9 Above high normal 0. 8-1.2 Final Performing Location [facility] [address] [place] [id number]
--- OUTSIDE RECORDS SUMMARY | 2024-03-14 13:44 | External Medical Summary ---
Author Name Unknown Address Unknown Organization [facility] [address] [place] [address] Laboratory Report Ordering Provider Test Date Status ABATULIO 02/01/2024 08:51:00 Final Standing order for pt/inr. < br/>Please draw pt/inr every 1 to 4 weeks as requested
Results to [facility] Anticoagulation Clinic

Warfarin Therapy
INR: 2.0-3.0 conventional anticoagulation
INR: 2.5-3.5 high intensity anticoagulation Observation Date Value Abnormality Reference (Units ) Status PT 02/01/2024 08:51:00 29.5 Above high normal 11 .6-15.2 (seconds) Final INR 02/01/2024 08:51:00 2.8 Above high normal 0. 8-1.2 Final Performing Location [facility] [address] [place] [address]
--- OUTSIDE RECORDS SUMMARY | 2024-03-14 13:44 | External Medical Summary | Summary of Care ---
Author Name Unknown Organization [facility] Address [address] [place] [address] Phone [phone] Care Team Providers Care Board Of Education Secretary Name Role Phone Roberto Askew MD Primary Care Provider + Reason for Visit * Reason Comments Dosage Adjustment Via Phone (anticoag Cl inic) Encounter Details Date Type Department Care Team (Latest Contact Info) Description 01/25/2024 6:00 AM EDT Anticoagulation Pharmacy Call Center [phone] [facility] [place] [address] [facility] [address] [place] [address] History of pulmonary embolism* Allergies Active Allergy [...] as of this encounter (statuses as of 01/25/2024) Medications Medication Sig Dispensed Refills Start Date [...] day as needed. 0 Active nystatin (NYSTOP) 590709 UNIT/GM powderIndications:Cu taneous candidiasis Apply topically to [...] group C, by GOLD 2017 classification ([facility]),COPD, group D, by GOLD 2017 classification ([facility]) USE 2 PUFFS BY MOUTH EVERY 4 HOURS NEEDED SHORT OF BREATH 6.7 g 5 11/24/2021 Active Magnesium Oxide 400 (241.3 Mg) MG Oral TabletIndications:Co ronary artery disease involving [place] coronary artery of [place] heart without angina pectoris Take by [...] Hour (toPROL XL)Indications:Coron uziel artery disease involving [place] coronary artery of [place] heart without angina pectoris TAKE 1 [...] A1c goal of less than 8.0% ([facility]) Use 3 times daily as directed 1 Kit 0 08/31/2023 Active True Metrix Blood Glucose Test In Vitro Strip (Glucose Blood)Indications:Ty pe 2 diabetes mellitus with hemoglobin A1c goal of less than 8.0% ([facility]) Use 3 times daily as directed 300 Strip 3 08/31/2023 Active TRUEplus Lancets 33GIndications:Type 2 diabetes mellitus with hemoglobin A1c goal of less than 8.0% ([facility]) Use 3 times daily as directed [...] MG Oral TabletIndications:Co ronary artery disease involving [place] coronary artery of [place] heart without angina pectoris TAKE 1 TABLET [...] as of this encounter (statuses as of 01/25/2024) Active Problems Problem Noted Date Diagnosed Date [...] 01/24/2021 Opioid dependence, uncomplicated 01/22/2021 History of [place] (myocardial infarction) 01/22/2021 Morbid obesity with BMI of 50.0-59.9, adult 09/20 History of subdural hematoma 10/04/2020 Gastroesophageal reflux disease without esophagi tis 10/04/2020 History of subarachnoid hemorrhage 10/04/2020 Coronary artery disease invo lving [place] heart without angina pectoris 10/04/2020 COPD, [...] as of this encounter (statuses as of 01/25/2024) Resolved Problems Problem Noted Date Diagnosed Date [...] Calculus of kidney 08/20/2015 8 Overview: right, [place] CT Vitamin D deficiency 01/31/2015 018 Body [...] as of this encounter (statuses as of 01/25/2024) Immunizations Name Administration Dates Next Due COVID-19 mRNA, LNP-s, No Pre serve, 2-Dose Series ([employer]) 01/02/2021,12/05/2020 DTP Vaccine 07/19/2017,04/03/2014 Hepatitis B, 20+ [...] this encounter Progress Notes * Sarahy Seals, [facility] - 01/25/2024 10:05 AM EDT Contacts Type Contact Phone/Fax 01/25/2024 10:02 AM EDT Phone (Outgoing) Stanton Milner (Self) [phone] (H) Spoke to Patient Subjective Patient Findings [...] noted by Pharmacist: Yes SARAHY SEALS CPhT 01/25/2024, 10:05 AM * Keren Sanchez RP - 01/25/2024 8:38 AM EDT Images from the original note were not included. Coumadin Clinic (region specific) Objective Current Warfarin Dose As of 01/25/2024 Warfarin maintenance plan: 2 mg (4 mg x 0.5) every Sat; 4 mg (4 mg x 1) all other days INR Result As of 01/25/2024 INR goal: 2.0-3.0 INR used for dosin.9 (01/24/2024) Assessment & Plan Warfarin Plan As of 01/25/2024 Full warfarin instructions: 01/24: 6 mg; Otherwise 4 mg every day Next INR check: 02/01/2024 Repeat PT/INR in 1 week(s) Weekly dose: increased Additional Dosing Information: Description GML([facility]) - pt prefers Tues GML at this time Tech to contact patient with dose instructions as noted. Keren Sanchez RPh 01/25/2024, 8:39 AM documented in this encounter Plan of Treatment Health Maintenance Due Date Last Done Comments DISCUSS TOBACCO CESSATION (REFER TO SMARTSET #4803) 1970 HIV Screening 1985 O2 ASSESSMENT COMPLETED [...] this encounter Medical Devices Implanted Type Area Client Account Specialist Device Identifier Shelf Expiration Date Model / Serial / Lot Tube Flex 3.0x2.5 [id number] - [id number] Implanted:Qty: 1 on 12/07/2014 by Juancarlos Trinidad MD at [facility] Left: Finger [employer]ON : ORTHOPAEDICS 11/18/2015 [id number] / / [id number] documented as of this encounter Visit Diagnoses [...] the patient have Health Care Power of Fan Runner? No Healthcare Agents on File Name Relationship Healthcare Agent Relationship Communication Estrella Seth Other - (no specific identity) Health Care Power of Fan Runner Care Teams Board Of Education Secretary Relationship Specialty Start Date End Date Roberto Askew MD [address] [place] [address] PCP - General Internal Medicine 04/10/20 documented as of this encounter
--- OUTSIDE RECORDS SUMMARY | 2024-03-14 13:44 | External Medical Summary | Summary of Care ---
Author Name Unknown Organization [facility] Address [address] [place] [address] Phone [phone] Care Team Providers Care Car Repairer Name Role Phone Roberto Askew MD Primary Care Provider + Reason for Visit * Reason Onset Date Comments Health Maintenance 02/01/2024 Encounter Details Date Type Department Care Team ([facility] st Contact Info) Description 02/01/2024 Telephone General Internal Medicine [facility] [address] [place] [address] Roberto Askew MD [address] [place] [address] Health Maintenance Allergies Active Allergy Reactions Criticality Noted Date [...] as of this encounter (statuses as of 02/01/2024) Medications Medication Sig Dispensed Refills Start Date [...] day as needed. 0 Active nystatin (NYSTOP) 645488 UNIT/GM powderIndications:Cu taneous candidiasis Apply topically to [...] MG Oral TabletIndications:Co ronary artery disease involving [place] coronary artery of [...] Hour (toPROL XL)Indications:Coron uziel artery disease involving [place] coronary artery of [...] ([facility]) Use 3 times daily as directed 1 Kit 0 08/31/2023 Active True Metrix Blood Glucose Test In Vitro Strip (Glucose Blood)Indications:Ty pe 2 diabetes mellitus with hemoglobin A1c goal of less than 8.0% ([facility]) Use 3 times daily as directed 300 Strip 3 08/31/2023 Active TRUEplus Lancets 33GIndications:Type 2 diabetes mellitus with hemoglobin A1c goal of less than 8.0% ([facility]) Use 3 times daily as directed 300 [...] MG Oral TabletIndications:Co ronary artery disease involving [place] coronary artery of [place] heart without angina pectoris TAKE 1 TABLET [...] as of this encounter (statuses as of 02/01/2024) Active Problems Problem Noted Date Diagnosed Date [...] hemorrhage 10/04/2020 Coronary artery disease invo lving [place] heart without angina pectoris 10/04/2020 COPD, [...] as of this encounter (statuses as of 02/01/2024) Resolved Problems Problem Noted Date Diagnosed Date [...] Calculus of kidney 08/20/2015 8 Overview: right, [place] CT Vitamin D deficiency 01/31/2015 018 Body [...] as of this encounter (statuses as of 02/01/2024) Immunizations Name Administration Dates Next Due COVID-19 mRNA, LNP-s, No Pre serve, 2-Dose Series ([employer]) 01/02/2021,12/05/2020 DTP Vaccine 07/19/2017,04/03/2014 Hepatitis B, 20+ [...] Telephone Encounter - Carmencita Rdz LPN - 02/01/2024 1:32 PM EDT Care Gaps Comprehensive Care Outreach [...] - [facility] 7.9 (H) 11/19/2019 05:38 AM BP Readings from Last 1 Encounters: 08/11/22 110/62 Reviewed Health Maintenance below: Health Maintenance Topic Date Due DISCUSS TOBACCO CESSATION (REFER TO SMARTSET #3291) Never done HIV Screening Never done O2 ASSESSMENT COMPLETED IN PAST YEAR FOR COPD Never done Pneumococcal Vaccine: Pediatrics (0 to 5 Years) and At-Risk Patients (6 to 64 Years) (2 of 2 - PCV)05/22/2010 *ADVANCE DIRECTIVE NOT ON FILE Never done Lung Cancer Screening 2020 Zoster Vaccines (1 of 2) Never done Hepatitis B (3 of 3 - 19+ 3-dose series) 10/11/2020 Diabetic Foot Exam 12/13/2020 Albumin/Creatinine Ratio 04/10/2021 Diabetic Eye Exam 11/19/2021 HbA1c 09/18/2022 COVID-19 Vaccine (2022- season) 2023 Colorectal Cancer Screening 12/09/2023 Ov Eye Lab Colon Declined HM. He is unable to come in right now due to transportation issues Care Gap Outreach Action Taken: Spoke to patient documented in this encounter Plan of Treatment Upcoming Encounters Date Type Department Care Team (Late st Contact Info) Description 02/02/2024 6:00 AM EDT Anticoagulation Pharmacy Call Center [phone] [place] [address] [facility] [address] [facility] [place] [address] Health Maintenance Due Date Last Done Comments DISCUSS TOBACCO CESSATION (REFER TO SMARTSET #4261) 1970 HIV Screening 1985 O2 ASSESSMENT COMPLETED [...] this encounter Medical Devices Implanted Type Area Barrel Scraper Device Identifier Shelf Expiration Date Model / Serial / Lot Tube Flex 3.0x2.5 [id number] - [id number] Implanted:Qty: 1 on 12/07/2014 by Juancarlos Trinidad MD at [facility] [place] Left: Finger [employer] : ORTHOPAEDICS 11/18/2015 [id number] / / [id number] documented as of this encounter Advance Directives [...] the patient have Health Care Power of Heavy Equipment Rental Manager? No Healthcare Agents on File Name Relationship Healthcare Agent Relationship Communication Estrella Seth Other - (no specific identity) Health Care Power of Heavy Equipment Rental Manager Care Teams Car Repairer Relationship Specialty Start Date End Date Roberto Askew MD [address] [place], [place] [address] PCP - General Internal Medicine 04/10/20 documented as of this encounter
--- OUTSIDE RECORDS SUMMARY | 2024-03-14 13:45 | External Medical Summary | Summary of Care ---
Author Name Unknown Organization [facility] Address [address] [place] [address] Phone [phone] Care Team Providers Care Pressing Machine Tender Name Role Phone Roberto Askew MD Primary Care Provider + Reason for Visit * Reason Onset Date Comments Hospital Follow-Up 10/12/2023 Encounter Details Date Type Department Care Team ([facility] st Contact Info) Description 10/12/2023 Telephone General Internal Medicine [facility] [address] [place] [address] Roberto Askew MD [address] [place] [address] Hospital Follow-Up Allergies Active Allergy Reactions Criticality [...] as of this encounter (statuses as of 01/11/2024) Medications Medication Sig Dispensed Refills Start Date [...] day as needed. 0 Active nystatin (NYSTOP) 042814 UNIT/GM powderIndications:Cu taneous candidiasis Apply topically to [...] MG Oral TabletIndications:Co ronary artery disease involving [place] coronary artery of [place] heart without angina pectoris Take by mouth [...] Hour (toPROL XL)Indications:Coron uziel artery disease involving [place] coronary artery of [place] heart without angina pectoris TAKE 1 & [...] as of this encounter (statuses as of 01/11/2024) Active Problems Problem Noted Date Diagnosed Date [...] 10/04/2020 Coronary artery disease invo lving [place] heart without angina pectoris 10/04/2020 COPD, group [...] as of this encounter (statuses as of 01/11/2024) Resolved Problems Problem Noted Date Diagnosed Date [...] Calculus of kidney 08/20/2015 8 Overview: right, [place] CT Vitamin D deficiency 01/31/2015 018 Body [...] 9 Chews tobacco 09/03/2014 10/04/2017 Bronchitis, complicated 06/29/2014 0511/2014 Acute respiratory failure with hypoxia 06/29/2014 01/30/2015 [...] as of this encounter (statuses as of 01/11/2024) Immunizations Name Administration Dates Next Due COVID-19 mRNA, LNP-s, No Pre serve, 2-Dose Series ([employer]) 01/02/2021,12/05/2020 DTP Vaccine 07/19/2017,04/03/2014 Hepatitis B, 20+ [...] encounter Miscellaneous Notes * Telephone Encounter - Drake Hanson RN - 10/12/2023 10:45 AM EST Patient discharged to home from [facility] 10/12/23. Coumadin changed to 4mg daily upon discharge. INR onadmission (09/19/23) was >9.5. INR on discharge (10/12/23) 2.7 Please follow up with this patient. Thank you documented in this encounter Plan of Treatment Upcoming Encounters Date Type Department Care Team (Late st Contact Info) Description 01/17/2024 7:05 AM EDT Laboratory Lab [facility] [address] [place] [address] [facility] Draw [address] [place] [address] [address] 01/18/2024 6:00 AM EDT Anticoagulation Pharmacy Call Center [phone] [place] [address] [facility] [address] [facility] [place] [address] Health Maintenance Due Date Last Done Comments DISCUSS TOBACCO CESSATION (REFER TO SMARTSET #1630) 1970 HIV Screening 1985 O2 ASSESSMENT COMPLETED [...] this encounter Medical Devices Implanted Type Area Special Assemblies Supervisor Device Identifier Shelf Expiration Date Model / Serial / Lot Tube Flex 3.0x2.5 [id number] - [id number] Implanted:Qty: 1 on 12/07/2014 by Juancarlos Trinidad MD at [facility] Left: Finger [employer] : ORTHOPAEDICS 11/18/2015 [id number] / / [id number] documented as of this encounter Advance Directives [...] the patient have Health Care Power of Edge Runner? No Healthcare Agents on File Name Relationship Healthcare Agent Relationship Communication Estrella Seth Other - (no specific identity) Health Care Power of Edge Runner Care Teams Pressing Machine Tender Relationship Specialty Start Date End Date Roberto Askew MD [address] [facility] [place] [address] PCP - General Internal Medicine 04/10/20 documented as of this encounter
--- OUTSIDE RECORDS SUMMARY | 2024-03-14 13:45 | External Medical Summary | Summary of Care ---
Author Name Unknown Organization [facility] Address [address] [place] [address] Phone [phone] Care Team Providers Care Branch Or Department Chief Librarian Name Role Phone Roberto Askew MD Primary Care Provider + Reason for Visit * Reason Comments Dosage Adjustment Via Phone (anticoag Cl inic) Encounter Details Date Type Department Care Team (Latest Contact Info) Description 01/11/2024 6:00 AM EDT Anticoagulation Pharmacy Call Center [phone] [facility] [place] [address] [facility] [address] [place] [address] History of pulmonary embolism* Allergies Active Allergy [...] day as needed. 0 Active nystatin (NYSTOP) 804822 UNIT/GM powderIndications:Cu taneous candidiasis Apply topically to [...] [place] heart without angina pectoris TAKE 1 TABLET [...] cut, crush or chew 0 12/31/2023 Active documented as of this encounter (statuses [...] Calculus of kidney 08/20/2015 8 Overview: right, [place] CT Vitamin D deficiency 01/31/2015 018 Body [...] mRNA, LNP-s, No Pre serve, 2-Dose Series ([employer]) 01/02/2021,12/05/2020 DTP Vaccine 07/19/2017,04/03/2014 Hepatitis B, 20+ [...] Progress Notes * Keren Sanchez RPh - 01/11/2024 11:28 AM EDT Noted Keren Sanchez Rph, Pharm.D. Clinical Pharmacist [facility] ([facility] (formerly Telepharmacy) [phone] 01/11/2024,11:28 AM * Keren Tipton CPhT - 01/11/2024 11:15 AM EDT Contacts Type Contact Phone/Fax 01/11/2024 11:04 AM EDT Phone (Outgoing) Stanton Milner (Self) [phone] (H) Subjective Patient Findings Positives: Change in medications (Pt has completed all abx since he was in the hospital. He does not remember the names or doses but did want to mention it was for a UTI) Negatives: Signs/symptoms of bleeding, Change in health, Change in activity, Upcoming invasive procedure, Missed doses, Extra doses, Change in diet/appetite, Bruising Advised patient to contact Anticoagulation Clinic if any unusual bruising or bleeding, recent illness, changes in medication, or questions/concerns. PT/INR results, Coumadin dose instructions, and next PT/INR date communicated as noted by Pharmacist: Yes Keren Tipton CPhT 01/11/2024, 11:15 AM * Keren Sanchez RPh - 01/11/2024 8:50 AM EDT Coumadin Clinic (region specific) Objective Current Warfarin Dose As of 01/11/2024 Warfarin maintenance plan: 2 mg (4 mg x 0.5) every Sat; 4 mg (4 mg x 1) all other days INR Result As of 01/11/2024 INR goal: 2.0-3.0 INR used for dosin.1 (01/10/2024) Assessment & Plan Warfarin Plan As of 01/11/2024 Full warfarin instructions: 2 mg every Sat; 4 mg all other days No change documented: Keren Sanchez RPh Next INR check: 01/17/2024 Repeat PT/INR in 1 week(s) Weekly dose: not changed Additional Dosing Information: Description GML([facility]) - pt prefers Tues GML at this time Tech to contact patient with dose instructions as noted. Keren Sanchez RPh 01/11/2024, 8:50 AM documented in this encounter Plan of Treatment Upcoming Encounters Date Type Department Care Team (Late st Contact Info) Description 01/17/2024 7:05 AM EDT Laboratory Lab [facility] [address] [place] [address] [facility], [facility] Mobile Home Draw [address] [place] [address] [address] Health Maintenance Due Date Last Done Comments DISCUSS TOBACCO CESSATION (REFER TO SMARTSET #0777) 1970 HIV Screening 1985 O2 ASSESSMENT COMPLETED [...] this encounter Medical Devices Implanted Type Area Crna Device Identifier Shelf Expiration Date Model / Serial / Lot Tube Flex 3.0x2.5 [id number] - [id number] Implanted:Qty: 1 on 12/07/2014 by Juancarlos Trinidad MD at [facility] Left: Finger [employer] : ORTHOPAEDICS 11/18/2015 [id number] / / [id number] documented as of this encounter Visit Diagnoses [...] the patient have Health Care Power of [place]? No Healthcare Agents on File Name Relationship Healthcare Agent Relationship Communication Estrella Seht Other - (no specific identity) Health Care Power of [place] Care Teams Branch Or Department Chief Librarian Relationship Specialty Start Date End Date Roberto Askew MD [address] [facility] [place] [address] PCP - General Internal Medicine 04/10/20 documented as of this encounter
--- OUTSIDE RECORDS SUMMARY | 2024-03-14 13:45 | External Medical Summary | Summary of Care ---
Author Name Unknown Organization [facility] Address [address] [place] [address] Phone [phone] Care Team Providers Care Home Health Speech Therapist Name Role Phone Roberto Askew MD Primary Care Provider + Reason for Visit * Reason Onset Date Comments Hospital Follow-Up 10/13/2023 Encounter Details Date Type Department Care Team ([facility] st Contact Info) Description 10/13/2023 Telephone General Internal Medicine [facility] [address] [place] [address] Roberto Askew MD [address] [place] [address] Hospital Follow-Up Allergies Active Allergy Reactions Criticality [...] as of this encounter (statuses as of 01/12/2024) Medications Medication Sig Dispensed Refills Start Date [...] day as needed. 0 Active nystatin (NYSTOP) 464635 UNIT/GM powderIndications:C utaneous candidiasis Apply topically to affected area 3 times a day. Apply to AFFECTED AREAS 3 times daily as needed 60 g 5 05/01/20 Active Additional Information Patient taking differently:TopicalTID PRN, [...] MG Oral TabletIndications:C oronary artery disease involving jamul coronary artery of jamul heart without angina pectoris Take by mouth [...] COUGH. 20 Capsule 0 12/31/19 23 Active Metoprolol Succinate ER 50 MG Oral Tablet Extended Release 24 Hour (toPROL XL)Indications:Freddie nary artery disease involving jamul coronary artery of jamul heart without angina pectoris TAKE 1 & [...] MORNING 90 Tablet 1 04/21/20 23 Active Potassium Chloride Terra ER 20 [...] Follow taper directions. 0 08/26/20 23 Active Tamsulosin HCl 0.4 MG Oral Capsule (Flomax) TAKE 2 CAPSULES EVERY MORNING 180 Capsule 0 08/31/20 23 Active True Metrix Meter w/Device KitIndications:Type 2 diabetes mellitus with hemoglobin A1c goal of less than 8.0% ([facility]) Use 3 times daily as directed 1 Kit 0 08/31/20 23 Active True Metrix Blood Glucose Test In Vitro Strip (Glucose Blood)Indications:T ype 2 diabetes mellitus with hemoglobin A1c goal of less than 8.0% ([facility]) Use 3 times daily as directed 300 Strip 3 08/31/20 23 Active TRUEplus Lancets 33GIndications:Type 2 diabetes mellitus with hemoglobin A1c goal of less than 8.0% ([facility]) Use 3 times daily as directed 300 Each 3 08/31/20 23 Active BD Swab Single Use Regular Pad Use 3 times daily as directed 300 Each 3 08/31/20 23 Active True Metrix Level 1 Low In Vitro Solution Use as directed 1 Each 0 08/31/20 23 Active Atorvastatin Calcium 80 MG Oral Tablet (Lipitor) TAKE 1 TABLET BY MOUTH IN THE AFTERNOON. 90 Tablet 1 09/06/20 23 Active Isosorbide Dinitrate 30 MG Oral TabletIndications:C oronary artery disease involving jamul coronary artery of jamul heart without angina pectoris Take 1 Tablet by mouth in the morning. In the morning.. 90 Tablet 1 04/05/20 23 024 Discontinued Warfarin Sodium 5 MG Oral Tablet (Coumadin)Indicatio ns:History of pulmonary embolism TAKE 1/2 TO 1 TABLET EVERY DAY DIRECTED BY COUMADIN CLINIC. 90 Tablet 3 04/23/20 23 024 Discontinued(Re fill) metOLazone 2.5 MG Oral Tablet (Zaroxolyn) TAKE 1 TABLET ONE TIME DAILY ON WEDNESDAY, WEDNESDAY, AND WEDNESDAY ONLY. 39 Tablet 1 05/10/20 23 024 Discontinued(Pa arsh preference/disc ontinuation) Torsemide 100 MG Oral Tablet (Demadex) Take 0.5 Tablets by mouth in the morning. 15 Tablet 1 08/31/20 23 024 Discontinued(Re fill) documented as of this encounter (statuses as of 01/12/2024) Active Problems Problem Noted Date Diagnosed Date [...] hemorrhage 10/04/2020 Coronary artery disease invo lving jamul heart without angina pectoris 10/04/2020 COPD, group [...] as of this encounter (statuses as of 01/12/2024) Resolved Problems Problem Noted Date Diagnosed Date [...] Calculus of kidney 08/20/2015 8 Overview: right, [place] CT Vitamin D deficiency 01/31/2015 018 [...] as of this encounter (statuses as of 01/12/2024) Immunizations Name Administration Dates Next Due COVID-19 mRNA, LNP-s, No Pre serve, 2-Dose Series (BangTango) 01/02/2021,12/05/2020 DTP Vaccine 07/19/2017,04/03/2014 Hepatitis B, 20+ [...] Telephone Encounter - Drake Hanson RN - 10/13/2023 3:29 PM EST Patient discharged to home from [facility] 10/12/23. Nephrology consulted and recommends: nephro hospitald/c visit after d/c given severe MAHAMED > recommend w/ Dr Arizmendi and w/ BMP to be obtained 3-5 daysbefore OV and ordered by renal nurse. Please assist with these recommendations. Thank you documented in this encounter Plan of Treatment Upcoming Encounters Date Type Department Care Team (Late st Contact Info) Description 01/17/2024 7:05 AM EDT Laboratory Lab Mobile Phlebotomy [facility] [address] [facility] [place] [address] [facility], [facility] Mobile Home Draw [address] [place] [address] 01/18/2024 6:00 AM EDT Anticoagulation Pharmacy Call Center [address] [place] [address] Ccps, [facility] [address] [facility] [place] [address] Health Maintenance Due Date Last Done Comments DISCUSS TOBACCO CESSATION (REFER TO SMARTSET #1417) 1970 HIV Screening 1985 O2 ASSESSMENT COMPLETED [...] this encounter Medical Devices Implanted Type Area Biological Technical Officer Device Identifier Shelf Expiration Date Model / Serial / Lot Tube Flex 3.0x2.5 [id number] - [id number] Implanted:Qty: 1 on 12/07/2014 by Juancarlos Trinidad MD at [facility] Left: Finger LANDON : ORTHOPAEDICS 11/18/2015 [id number] / / [id number] documented as of this encounter Advance Directives [...] the patient have Health Care Power of Supervisor Specialty Plant? No Healthcare Agents on File Name Relationship Healthcare Agent Relationship Communication Estrella Seth Other - (no specific identity) Health Care Power of Supervisor Specialty Plant Care Teams Home Health Speech Therapist Relationship Specialty Start Date End Date Roberto Askew MD [address] [place] [place] [address] PCP - General Internal Medicine 04/10/20 documented as of this encounter
--- OUTSIDE RECORDS SUMMARY | 2024-03-14 13:45 | External Medical Summary ---
Author Name Unknown Address Unknown Organization [facility] [address] [place] [address] Laboratory Report Ordering Provider Test Date Status ABADOMENICALIONEL 01/17/2024 08:51:00 Final Standing order for pt/inr. < br/>Please draw pt/inr every 1 to 4 weeks as requested
Results to [facility]

Warfarin Therapy
INR: 2.0-3.0 conventional anticoagulation
INR: 2.5-3.5 high intensity anticoagulation Observation Date Value Abnormality Reference (Units ) Status PT 01/17/2024 08:51:00 20.4 Above high normal 11 .6-15.2 (seconds) Final INR 01/17/2024 08:51:00 1.7 Above high normal 0. 8-1.2 Final Performing Location [facility] [address] [place] [address]
--- OUTSIDE RECORDS SUMMARY | 2024-03-14 13:45 | External Medical Summary ---
Author Name Unknown Address Unknown Organization [facility] [address] [place] [address] Laboratory Report Ordering Provider Test Date Status ABADOMENICALIONEL 01/10/2024 07:58:00 Final Standing order for pt/inr. < br/>Please draw pt/inr every 1 to 4 weeks as requested
Results to [facility]

Warfarin Therapy
INR: 2.0-3.0 conventional anticoagulation
INR: 2.5-3.5 high intensity anticoagulation Observation Date Value Abnormality Reference (Units ) Status PT 01/10/2024 07:58:00 24.2 Above high normal 11 .6-15.2 (seconds) Final INR 01/10/2024 07:58:00 2.1 Above high normal 0. 8-1.2 Final Performing Location [facility] [address] [place] [id number]
--- OUTSIDE RECORDS SUMMARY | 2024-03-14 13:45 | External Medical Summary | Summary of Care ---
Author Name Unknown Organization [facility] Address [address] [place] [address] Phone [phone] Care Team Providers Care Multifocal Button Grinder Name Role Phone Roberto Askew MD Primary Care Provider + Reason for Visit * Reason Comments Dosage Adjustment Via Phone (anticoag Cl inic) Encounter Details Date Type Department Care Team (Latest Contact Info) Description 01/18/2024 6:00 AM EDT Anticoagulation Pharmacy Call Center [phone] [place] [address] [facility] [address] [place] [address] History of pulmonary embolism* Allergies Active Allergy [...] as of this encounter (statuses as of 01/18/2024) Medications Medication Sig Dispensed Refills Start Date [...] day as needed. 0 Active nystatin (NYSTOP) 549979 UNIT/GM powderIndications:Cu taneous candidiasis Apply topically to [...] MG Oral TabletIndications:Co ronary artery disease involving alutiiq coronary artery of alutiiq heart without angina pectoris Take by mouth [...] Hour (toPROL XL)Indications:Coron uziel artery disease involving alutiiq coronary artery of alutiiq heart without angina pectoris TAKE 1 & [...] MG Oral TabletIndications:Co ronary artery disease involving alutiiq coronary artery of alutiiq heart without angina pectoris TAKE 1 TABLET [...] as of this encounter (statuses as of 01/18/2024) Active Problems Problem Noted Date Diagnosed Date [...] hemorrhage 10/04/2020 Coronary artery disease invo lving alutiiq heart without angina pectoris 10/04/2020 COPD, group [...] as of this encounter (statuses as of 01/18/2024) Resolved Problems Problem Noted Date Diagnosed Date [...] Calculus of kidney 08/20/2015 8 Overview: right, [place] CT Vitamin D deficiency 01/31/2015 018 Body [...] as of this encounter (statuses as of 01/18/2024) Immunizations Name Administration Dates Next Due COVID-19 mRNA, LNP-s, No Pre serve, 2-Dose Series (YYzhaoche) 01/02/2021,12/05/2020 DTP Vaccine 07/19/2017,04/03/2014 Hepatitis B, 20+ [...] as of this encounter Progress Notes * Lala Troy CPhT - 01/18/2024 9:32 AM EDT Contacts Type Contact Phone/Fax 01/18/2024 09:31 AM EDT Phone (Outgoing) Stanton Milner (Self) [phone] (H) Left Message Subjective Advised patient to contact Anticoagulation Clinic if any unusual bruising or bleeding, recent illness, changes in medication, or questions/concerns. PT/INR results, Coumadin dose instructions, and next PT/INR date communicated as noted by Pharmacist: Yes LALA TROY CPhT 01/18/2024, 9:32 AM * Keren Sanchez RP - 01/18/2024 8:18 AM EDT Coumadin Clinic (region specific) Objective Current Warfarin Dose As of 01/18/2024 Warfarin maintenance plan: 2 mg (4 mg x 0.5) every Sat; 4 mg (4 mg x 1) all other days INR Result As of 01/18/2024 INR goal: 2.0-3.0 INR used for dosin.7 (01/17/2024) Assessment & Plan Warfarin Plan As of 01/18/2024 Full warfarin instructions: 01/17: 8 mg; Otherwise 2 mg every Sat; 4 mg all other days Next INR check: 01/24/2024 Repeat PT/INR in 1 week(s) Weekly dose: not changed Additional Dosing Information: Description [facility] Tech to contact patient with dose instructions as noted. Keren Sanchez RPh 01/18/2024, 8:18 AM documented in this encounter Plan of Treatment Upcoming Encounters Date Type Department Care Team (Late st Contact Info) Description 01/25/2024 6:00 AM EDT Anticoagulation Pharmacy Call Center [address] [place] [address] [facility] [address] [place] [address] Health Maintenance Due Date Last Done Comments DISCUSS TOBACCO CESSATION (REFER TO SMARTSET #1057) 1970 HIV Screening 1985 O2 ASSESSMENT COMPLETED [...] COVID-19 Vaccine (2022- season) 2023 01/02/2021, 12/05/2020 Colonoscopy 12/09/2023 12/08/2013, [...] this encounter Medical Devices Implanted Type Area Airline Reservationist Device Identifier Shelf Expiration Date Model / Serial / Lot Tube Flex 3.0x2.5 [id number] - [id number] Implanted:Qty: 1 on 12/07/2014 by Juancarlos Trinidad MD at [facility] Left: Finger LANDON : ORTHOPAEDICS 11/18/2015 [id number] / / [id number] documented as of this encounter Visit Diagnoses [...] patient have Health Care Power of Glass Smoother? No Healthcare Agents on File Name Relationship Healthcare Agent Relationship Communication Estrella Seth Other - (no specific identity) Health Care Power of Glass Smoother Care Teams Multifocal Button Grinder Relationship Specialty Start Date End Date Roberto Askew MD [address] [facility] [place] [facility] [address] PCP - General Internal Medicine 04/10/20 documented as of this encounter
--- OUTSIDE RECORDS SUMMARY | 2024-03-14 13:45 | External Medical Summary | Summary of Care ---
Author Name Unknown Organization [facility] Address [address] [place] [address] Phone [phone] Care Team Providers Care Stove Bottom Worker Name Role Phone Roberto Griffin MD Primary Care Provider + Reason for Visit * Reason Onset Date Comments Medication Refill 01/14/2024 Encounter Details Date Type Department Care Team ([facility] st Contact Info) Description 01/14/2024 Telephone General Internal Medicine [facility] [address] [place] [address] Nikolai portillo, [facility] [address] [place] [address] Medication Refill Allergies Active Allergy Reactions Criticality Noted Date [...] as of this encounter (statuses as of 01/14/2024) Medications Medication Sig Dispensed Refills Start Date [...] day as needed. 0 Active nystatin (NYSTOP) 376043 UNIT/GM powderIndications:Cu taneous candidiasis Apply topically to [...] MG Oral TabletIndications:Co ronary artery disease involving ottawa coronary artery of ottawa heart without angina pectoris Take by mouth [...] FOR COUGH. 20 Capsule 0 3 Active Metoprolol Succinate ER 50 MG Oral Tablet Extended Release 24 Hour (toPROL XL)Indications:Coron uziel artery disease involving ottawa coronary artery of ottawa heart without angina pectoris TAKE 1 & [...] as directed 1 Each 0 3 Active Atorvastatin Calcium 80 MG Oral Tablet (Lipitor) TAKE 1 TABLET BY MOUTH IN THE AFTERNOON. 90 Tablet 1 3 Active Warfarin Sodium 4 MG Oral Tablet (Coumadin)Indication s:History of pulmonary embolism TAKE 1/2 TO 1 TABLET EVERY DAY DIRECTED BY COUMADIN CLINIC. 180 Tablet 1 4 Active Isosorbide Dinitrate 30 MG Oral TabletIndications:Co ronary artery disease involving ottawa coronary artery of ottawa heart without angina pectoris TAKE 1 TABLET BY MOUTH IN THE MORNING. IN THE MORNING.. 90 Tablet 0 4 Active Torsemide 100 MG Oral Tablet (Demadex) Take 1 Tablet by mouth in the morning. 0 4 Active Bisacodyl 5 MG Oral Tablet Delayed Release (Dulcolax)Indication s:Chronic constipation Take 2 Tablets by mouth daily as needed for Constipation. do not use for over 1 week. Do not cut, crush or chew 0 4 Active glipiZIDE 10 MG Oral Tablet (Glucotrol)Indicatio ns:Diabetes mellitus with nephropathy (HCC) TAKE ONE TABLET BY MOUTH 2 TIMES A DAY 30 MINUTES BEFORE MEALS 60 Tablet 0 4 Active glipiZIDE 10 MG Oral Tablet (Glucotrol)Indicatio ns:Diabetes mellitus with nephropathy (HCC) TAKE ONE TABLET BY MOUTH 2 TIMES A DAY 30 MINUTES BEFORE MEALS 180 Tablet 1 3 01/14/20 24 Discontinu ed(Refill) documented as of this encounter (statuses as of 01/14/2024) Active Problems Problem Noted Date Diagnosed Date [...] hemorrhage 10/04/2020 Coronary artery disease invo lving ottawa heart without angina pectoris 10/04/2020 COPD, group [...] as of this encounter (statuses as of 01/14/2024) Resolved Problems Problem Noted Date Diagnosed Date [...] Calculus of kidney 08/20/2015 8 Overview: right, [place] CT Vitamin D deficiency 01/31/2015 018 Body [...] as of this encounter (statuses as of 01/14/2024) Immunizations Name Administration Dates Next Due COVID-19 mRNA, LNP-s, No Pre serve, 2-Dose Series ([employer]) 01/02/2021,12/05/2020 DTP Vaccine 07/19/2017,04/03/2014 Hepatitis B, [...] encounter Miscellaneous Notes * Telephone Encounter - Priya James MED ASSIST - 01/14/2024 3:06 PM EDT Patient aware and verbalized understanding Pt has issues with transportation so he will contact us to set up an appointment once that is figured out * Telephone Encounter - Roberto Griffin MD - 01/14/2024 1:48 PM EDTSigned Prescriptions: Disp Refills glipiZIDE 10 MG Oral Tablet (Glucotrol) 60 Tab*0 Sig: TAKE ONE TABLET BY MOUTH 2 TIMES A DAY 30 MINUTES BEFORE MEALS Authorizing Provider: ROBERTO GRIFFIN * Telephone Encounter - Roberto Griffin MD - 01/14/2024 1:48 PM EDT 1 month only needs visit for further meds, [facility] which he is transitioning too . * Telephone Encounter - Jackie Gonzalez [facility] - 01/14/2024 1:30 PM EDT Pending Prescriptions: Disp Refills glipiZIDE 10 MG Oral Tablet (Glucotrol) 180 Ta*0 Sig: TAKE ONE TABLET BY MOUTH 2 TIMES A DAY 30 MINUTES BEFORE MEALS * Telephone Encounter - Lázaro Leos CPhT - 01/14/2024 1:16 PM EDT Pt was unwilling to schedule an appt due to not knowing when his transportation would be available.Pt requesting high priority because he is completely out of medication. Did you pend patient's preferred pharmacy and medication before forwarding?yes Pharmacy: [id number] [address] [facility] Pending Prescriptions: Disp Refills glipiZIDE 10 MG [...] appointment Last date the medication was ordered: 07/22/2023 Is this request for a controlled substance?No [...] Laboratory Lab Mobile Phlebotomy [facility] [address] [place] [address] [address] [facility], Gml Mobile Home Draw [address] [place] [address] [address] 01/18/2024 6:00 AM EDT Anticoagulation Pharmacy Call Center [address] [place] [address] [facility], [facility] [address] [facility] [place] [address] Health Maintenance Due Date Last Done Comments DISCUSS TOBACCO CESSATION (REFER TO SMARTSET #3263) 1970 HIV Screening 1985 O2 ASSESSMENT COMPLETED [...] encounter Medical Devices Implanted Type Area Legal Arbitrator Device Identifier Shelf Expiration Date Model / Serial / Lot Tube Flex 3.0x2.5 [id number] - [id number] Implanted:Qty: 1 on 12/07/2014 by Juancarlos Trinidad MD at [facility] Left: Finger LANDON : ORTHOPAEDICS 11/18/2015 [id number] / / [id number] documented as of this encounter Visit Diagnoses [...] the patient have Health Care Power of Billboard Erector? No Healthcare Agents on File Name Relationship Healthcare Agent Relationship Communication Estrella Seth Other - (no specific identity) Health Care Power of Billboard Erector Care Teams Stove Bottom Worker Relationship Specialty Start Date End Date Roberto Griffin MD [address] [facility] [place] [address] PCP - General Internal Medicine 04/10/20 documented as of this encounter
--- OUTSIDE RECORDS SUMMARY | 2024-03-14 13:46 | External Medical Summary ---
Author Name Unknown Address Unknown Organization [facility] [address] [place] [address] Laboratory Report Ordering Provider Test Date Status ABADOMENICALIONEL 01/03/2024 08:46:00 Final Standing order for pt/inr. < br/>Please draw pt/inr every 1 to 4 weeks as requested
Results to [facility]

Warfarin Therapy
INR: 2.0-3.0 conventional anticoagulation
INR: 2.5-3.5 high intensity anticoagulation Observation Date Value Abnormality Reference (Units ) Status PT 01/03/2024 08:46:00 19.5 Above high normal 11 .6-15.2 (seconds) Final INR 01/03/2024 08:46:00 1.6 Above high normal 0. 8-1.2 Final Performing Location [facility] [address] [place] [address]
--- OUTSIDE RECORDS SUMMARY | 2024-03-14 13:46 | External Medical Summary | Summary of Care ---
Author Name Unknown Organization [facility] Address [address] [place] [address] Phone [phone] Care Team Providers Care Radiology Resident Name Role Phone Roberto Askew MD Primary Care Provider + Reason for Visit * Reason Comments Dosage Adjustment Via Phone (anticoag Cl inic) Encounter Details Date Type Department Care Team (Latest Contact Info) Description 01/03/2024 6:00 PM EDT Anticoagulation Pharmacy Call Center [address] [place] [address] [facility] [address] [place] [address] History of pulmonary embolism* Allergies Active Allergy [...] as of this encounter (statuses as of 01/03/2024) Medications Medication Sig Dispensed Refills Start Date [...] day as needed. 0 Active nystatin (NYSTOP) 850436 UNIT/GM powderIndications:Cu taneous candidiasis Apply topically to [...] MG Oral TabletIndications:Co ronary artery disease involving jackson coronary artery of [...] Hour (toPROL XL)Indications:Coron uziel artery disease involving jackson coronary artery of [...] MG Oral TabletIndications:Co ronary artery disease involving jackson coronary artery of jackson heart without angina pectoris TAKE 1 TABLET [...] as of this encounter (statuses as of 01/03/2024) Active Problems Problem Noted Date Diagnosed Date [...] 01/24/2021 Opioid dependence, uncomplicated 01/22/2021 History of SD (myocardial infarction) 01/22/2021 Morbid obesity with BMI of 50.0-59.9, adult 09/20 History of subdural hematoma 10/04/2020 Gastroesophageal reflux disease without esophagi tis 10/04/2020 History of subarachnoid hemorrhage 10/04/2020 Coronary artery disease invo lving jackson heart without angina pectoris 10/04/2020 COPD, [...] as of this encounter (statuses as of 01/03/2024) Resolved Problems Problem Noted Date Diagnosed Date [...] Calculus of kidney 08/20/2015 8 Overview: right, [place] CT Vitamin D deficiency 01/31/2015 018 Body [...] as of this encounter (statuses as of 01/03/2024) Immunizations Name Administration Dates Next Due COVID-19 mRNA, LNP-s, No Pre serve, 2-Dose Series (Anaphore) 01/02/2021,12/05/2020 DTP Vaccine 07/19/2017,04/03/2014 Hepatitis B, 20+ [...] this encounter Progress Notes * Aarti Caballero, export freight clerk - 01/03/2024 12:32 PM EDT Contacts Type Contact Phone/Fax 01/03/2024 12:27 PM EDT Phone (Outgoing) Stanton Milner (Self) [phone] (H) Subjective Patient Findings Negatives: Signs/symptoms of [...] noted by Pharmacist: Yes ARTEM JEFFRIES Tech 01/03/2024, 12:32 PM * Keren Sanchez [facility] - 01/03/2024 12:11 PM EDT Coumadin Clinic (region specific) Objective Current Warfarin Dose As of 01/03/2024 Warfarin maintenance plan: 2 mg (4 mg x 0.5) every Sat; 4 mg (4 mg x 1) all other days INR Result As of 01/03/2024 INR goal: 2.0-3.0 INR used for dosin.6 (01/03/2024) Assessment & Plan Warfarin Plan As of 01/03/2024 Full warfarin instructions: 01/02: 8 mg; Otherwise 2 mg every Sat; 4 mg all other days Next INR check: 01/10/2024 Repeat PT/INR in 1 week(s) Weekly dose: not changed Additional Dosing Information: Description [facility] - pt prefers Tues GML at this time Tech to contact patient with dose instructions as noted. Keren Sanchez [facility] 01/03/2024, 12:14 PM documented in this encounter Plan of Treatment Upcoming Encounters Date Type Department Care Team (Late st Contact Info) Description 01/04/2024 2:00 PM EDT Office Visit [facility] [address] [place] [address] Kehinde Mc MD [address] [place] [address] Health Maintenance Due Date Last Done Comments DISCUSS TOBACCO CESSATION (REFER TO SMARTSET #6893) 1970 HIV Screening 1985 O2 ASSESSMENT COMPLETED [...] encounter Medical Devices Implanted Type Area Log Snaker Device Identifier Shelf Expiration Date Model / Serial / Lot Tube Flex 3.0x2.5 [id number] - [id number] Implanted:Qty: 1 on 12/07/2014 by Juancarlos Trinidad MD at [facility] Left: Finger LANDON : ORTHOPAEDICS 11/18/2015 [id number] / / [id number] documented as of this encounter Visit Diagnoses [...] the patient have Health Care Power of Sociology Adjunct Instructor? No Healthcare Agents on File Name Relationship Healthcare Agent Relationship Communication Estrella Seth Other - (no specific identity) Health Care Power of Sociology Adjunct Instructor Care Teams Radiology Resident Relationship Specialty Start Date End Date Roberto Askew MD [address] [place] [address] PCP - General Internal Medicine 04/10/20 documented as of this encounter
--- OUTSIDE RECORDS SUMMARY | 2024-03-14 13:46 | External Medical Summary | Summary of Care ---
Author Name Unknown Organization [facility] Address [address] [place] [address] Phone [phone] Care Team Providers Care Assistant Gm Of Content & Delivery Name Role Phone Roberto Askew MD Primary Care Provider + Reason for Visit * Reason Onset Date Comments Hospital Follow-Up 12/31/2023 FARIDA Advice 12/31/2023 Encounter Details Date Type Department Care Team (Late st Contact Info) Description 12/31/2023 Telephone [facility] [address] [place] [address] Sherman Rizo RN Hospital Follow-Up (FARIDA); Advice Allergies Active Allergy Reactions Criticality Noted Date [...] as of this encounter (statuses as of 01/04/2024) Medications Medication Sig Dispensed Refills Start Date [...] day as needed. 0 Active nystatin (NYSTOP) 716851 UNIT/GM powderIndications:Cu taneous candidiasis Apply topically to [...] MG Oral TabletIndications:Co ronary artery disease involving paiute-shoshone coronary artery of paiute-shoshone heart without angina pectoris Take by mouth [...] Hour (toPROL XL)Indications:Coron uziel artery disease involving paiute-shoshone coronary artery of paiute-shoshone heart without angina pectoris TAKE 1 & [...] MG Oral TabletIndications:Co ronary artery disease involving paiute-shoshone coronary artery of paiute-shoshone heart without angina pectoris TAKE 1 TABLET BY MOUTH IN THE MORNING. IN THE MORNING.. 90 Tablet 0 4 Active metOLazone 2.5 MG Oral Tablet (Zaroxolyn) TAKE 1 TABLET ONE TIME DAILY ON WEDNESDAY, WEDNESDAY, AND WEDNESDAY ONLY. 39 Tablet 1 3 12/31/19 24 Discontinu ed(Patient preference /discontin uation) Torsemide 100 MG Oral Tablet (Demadex) Take 0.5 Tablets by mouth in the morning. 15 Tablet 1 3 12/31/19 24 Discontinu ed(Refill) documented as of this encounter (statuses as of 01/04/2024) Active Problems Problem Noted Date Diagnosed Date [...] hemorrhage 10/04/2020 Coronary artery disease invo lving paiute-shoshone heart without angina pectoris 10/04/2020 COPD, group [...] as of this encounter (statuses as of 01/04/2024) Resolved Problems Problem Noted Date Diagnosed Date [...] Calculus of kidney 08/20/2015 8 Overview: right, [place] CT Vitamin D deficiency 01/31/2015 018 Body [...] as of this encounter (statuses as of 01/04/2024) Immunizations Name Administration Dates Next Due COVID-19 mRNA, LNP-s, No Pre serve, 2-Dose Series (Eventifier) 01/02/2021,12/05/2020 DTP Vaccine 07/19/2017,04/03/2014 Hepatitis B, 20+ [...] encounter Miscellaneous Notes * Telephone Encounter - Roman eWaver OSA - 01/04/2024 3:53 PM EDT Patient called in wanting to speak to sherman he spoke with her last week. Please follow up with the patient. Thank you. * Telephone Encounter - Sherman Rizo RN - 12/31/2023 11:37 AM EDT Transitions of Care Note Reason for Referral:Recent Admission Phone visit for follow up: FARIDA #1 Admitted to: [facility], Date: 12/25/2023 Discharged to: Home, Date: 12/30/2023 Diagnosis driving hospitalization: Syncope, Complicated UTI, Respiratory Failure Attempted FARIDA - no answer. Message left to return call [phone] or . Sherman Rizo RN Transitions of Care Note Reason for Referral:Recent Admission Phone visit for follow up: FARIDA #2 Admitted to: [facility], Date: 12/25/2023 Discharged to: Home, Date: 12/30/2023 Diagnosis driving hospitalization: Syncope, Complicated UTI, Respiratory Failure Source/Contact: Patient SUBJECTIVE Consent: Verbal consent for review of hospital discharge: Yes REVIEW OF SYSTEMS Patient/Other Reports: Current patient/caregiver problems or concerns: Patient states he has had more LE swelling since his discharge, feels Lt >Rt. No tenderness or redness. He did not feel this was present in hospital. Also has not had BM since last Wednesday. This sometimes can be normal for him. + flatus, no abdominal pain. Has been taking Miralax and staying hydrated within fluid restriction. Started taking Miralax, and stool softeners. CV: Denies problems Pulmonary: Denies problems Chills/Sweats/Fever:Denies chills/sweats Denies fever Appetite:Denies problems such as nausea, vomiting, burning, decreased appetite Current diet: Carb consistent, Heart healthy, and Low Sodium Bowel: constipation, see above Bladder: denies problems and ostomy/indwelling catheter: Lloyd Wound (If applicable): N/A Pain:Denies Sleep:Difficulty sleeping FUNCTIONAL STATUS: ADL'S: Needs Assistance With:Bathing, Dressing, and Toileting IADL'S: Needs Assistance With:Grocery Shopping, Cooking food, Routine Housework, and Taking medications ( helps with medication) Cognitive and Mental Health: denies problems, alert and oriented x 3, and able to communicate, understand instructions, process information. MEDICATION RECONCILIATION Medications: Discharge med list reviewed with patient or caregiver New medication: Ciprofloxacin No discontinued medications ASSESSMENT Medication Risk Assessment: PolyPharmacy Did patient fail outpatient treatment? No Discharge instructions available for review? Yes PLAN Symptom Monitoring Interventions:Member/caregiver education - signs and symptoms to contact PrimaryCare (DO NOT DELETE-Three vaz symptoms patient is to report to PCP) 1. Chest Pain/SOB 2. Fever/Chills 3. Worsening edema 4. No BM in the next day or so, abdominal pain Personal Insurance AdvisorInformation Assurance Officer of Care interventions/Action Plan: 5 - 7 day follow-up with PCP in place - Date: PCP appointment 01/04/2024 Educated on role of FARIDA completed with patient/caregiver. Educated patient/caregiver on patient right to have input on FARIDA plan of care. Verification of Home Health/DME if indicated: YES Home O2 Identified Care Gaps: No Care Gaps closed this call: Appointment made or confirmed and Transition of Care follow-up communication Re-evaluation of Plan of Care and progress towards goals achievement: Patient education this visit: Verbal, Confirmed PCP appointment, discussed reasons to call sooner as above Plan to instructed to call Primary Care Provider with change in symptoms or as needed before next follow-up, discharge needs met, verbalizes understanding and agrees with plan Dr. Askew notified of LE edema and constipation issues. See Telephone encounter Sherman Rizo RN documented in this encounter Plan of Treatment Upcoming Encounters Date Type Department Care Team (Late st Contact Info) Description 01/10/2024 7:05 AM EDT Laboratory Lab Mobile Phlebotomy [facility] [address] [facility] [place] [address] Mvmg, Gml Mobile Home Draw [address] [facility] [place] [address] 01/11/2024 6:00 AM EDT Anticoagulation Pharmacy Call Center WB [address] [facility] [place] [address] [facility] [address] [facility] [place] [address] 01/11/2024 11:20 AM EDT Office Visit [facility] [address] [facility] [phone] Kehinde Mc MD [address] [facility] [address] Health Maintenance Due Date Last Done Comments DISCUSS TOBACCO CESSATION (REFER TO SMARTSET #4011) 1970 HIV Screening 1985 O2 ASSESSMENT COMPLETED [...] encounter Medical Devices Implanted Type Area Rn Acute Device Identifier Shelf Expiration Date Model / Serial / Lot Tube Flex 3.0x2.5 [id number] - [id number] Implanted:Qty: 1 on 12/07/2014 by Juancarlos Trinidad MD at [facility] Left: Finger LANDON : ORTHOPAEDICS 11/18/2015 [id number] / / [id number] documented as of this encounter Advance Directives [...] the patient have Health Care Power of Grain Grader? No Healthcare Agents on File Name Relationship Healthcare Agent Relationship Communication Estrella Seth Other - (no specific identity) Health Care Power of Grain Grader Care Teams Assistant Gm Of Content & Delivery Relationship Specialty Start Date End Date Roberto Askew MD [address] [place] [address] PCP - General Internal Medicine 04/10/20 documented as of this encounter
--- OUTSIDE RECORDS SUMMARY | 2024-03-14 13:46 | External Medical Summary | Summary of Care ---
Author Name Unknown Organization [facility] Address [address] [place] [address] Phone [phone] Care Team Providers Care Deburr Operator Name Role Phone Roberto Askew MD Primary Care Provider + Reason for Visit * Reason Onset Date Comments Hospital Follow-Up 12/31/2023 FARIDA Encounter Details Date Type Department Care Team (Late st Contact Info) Description 12/31/2023 Telephone [facility] [address] [place] [address] Shahida Rizo RN Hospital Follow-Up (FARIDA) Allergies Active Allergy Reactions [...] as of this encounter (statuses as of 12/31/2023) Medications Medication Sig Dispensed Refills Start Date [...] day as needed. 0 Active nystatin (NYSTOP) 054971 UNIT/GM powderIndications:Cu taneous candidiasis Apply topically to [...] MG Oral TabletIndications:Co ronary artery disease involving venet[place] coronary artery of [...] Solution (Duoneb)Indications: COPD, severity to be determined ([facility]),Wheezing Inhale 3 mL via nebulizer in [...] Hour (toPROL XL)Indications:Coron uziel artery disease involving venetie coronary artery of [...] MG Oral TabletIndications:Co ronary artery disease involving venetie coronary artery of venetie heart without angina pectoris TAKE 1 TABLET [...] as of this encounter (statuses as of 12/31/2023) Active Problems Problem Noted Date Diagnosed Date [...] 01/24/2021 Opioid dependence, uncomplicated 01/22/2021 History of ID (myocardial infarction) 01/22/2021 Morbid obesity with BMI [...] as of this encounter (statuses as of 12/31/2023) Resolved Problems Problem Noted Date Diagnosed Date [...] of kidney 08/20/2015 8 Overview: right, [place] CT Vitamin D deficiency 01/31/2015 018 Body [...] as of this encounter (statuses as of 12/31/2023) Immunizations Name Administration Dates Next Due COVID-19 mRNA, LNP-s, No Pre serve, 2-Dose Series ([employer]icon) 01/02/2021,12/05/2020 DTP Vaccine 07/19/2017,04/03/2014 Hepatitis B, 20+ [...] encounter Miscellaneous Notes * Telephone Encounter - Shahida Rizo RN - 12/31/2023 11:37 AM EDT Transitions of Care Note Reason for Referral:Recent Admission Phone visit for follow up: FARIDA #1 Admitted to: [facility], Date: 12/25/2023 Discharged to: Home, Date: 12/30/2023 Diagnosis driving hospitalization: Syncope, Complicated UTI, Respiratory Failure Attempted FARIDA - no answer. Message left to return call [phone] or . Shahida Rizo RN Transitions of Care Note Reason for Referral:Recent Admission Phone visit for follow up: FARIDA #2 Admitted to: [facility], Date: 12/25/2023 Discharged to: Home, Date: 12/30/2023 [...] the next day or so, abdominal pain Inside Sales AdvisorIntermediate Accountant of Care interventions/Action Plan: 5 - 7 [...] edema and constipation issues. See Telephone encounter Shahida Rizo, RN documented in this encounter Plan of Treatment Upcoming Encounters Date Type Department Care Team (Late st Contact Info) Description 01/03/2024 7:10 AM EDT Laboratory Lab Mobile Phlebotomy [facility] [address] [place] [address] Mvmg, Gml Mobile Home Draw [address] [employer] [place] [address] 01/03/2024 6:00 PM EDT Anticoagulation Pharmacy Call Center [address] [place] [address] Ccps, [facility] [address] [place] [address] 01/04/2024 2:00 PM EDT Office Visit [facility] [address] [place] [phone] Kehinde Mc MD [address] [place] [address] Health Maintenance Due Date Last Done Comments DISCUSS TOBACCO CESSATION (REFER TO SMARTSET #8712) 1970 HIV Screening 1985 O2 ASSESSMENT COMPLETED IN PAST YEAR FOR COPD 1988 Pneumococcal Vaccine: Pediatrics (0 to 5 Years) and At-Risk Patients (6 to 64 Years) (2 of 2 - PCV) 05/22/2010 05/22/2009 Cologuard 2015 Fecal Occult Blood Test 2015 Sigmoidoscopy 2015 *ADVANCE DIRECTIVE NOT ON FILE 02/03/2020 LUNG CANCER SCREENING - USE SMARTSET [id number] 2020 02/10/2019, 07/19/2017, 05/09/2017, Additional history exists [...] encounter Medical Devices Implanted Type Area Clinical Assoc Device Identifier Shelf Expiration Date Model / Serial / Lot Tube Flex 3.0x2.5 [id number] - [id number] Implanted:Qty: 1 on 12/07/2014 by Juancarlos Trinidad MD at [facility] Left: Finger LANDON : ORTHOPAEDICS 11/18/2015 [id number] / / [id number] documented as of this encounter Advance Directives [...] the patient have Health Care Power of Sack Department Supervisor? No Healthcare Agents on File Name Relationship Healthcare Agent Relationship Communication Estrella Seth Other - (no specific identity) Health Care Power of Sack Department Supervisor Care Teams Deburr Operator Relationship Specialty Start Date End Date Roberto Askew MD [address] [place] [address] PCP - General Internal Medicine 04/10/20 documented as of this encounter
--- OUTSIDE RECORDS SUMMARY | 2024-03-14 13:47 | External Medical Summary | Summary of Care ---
Author Name Unknown Organization [facility] Address [address] [place] [address] Phone [phone] Care Team Providers Care Development And Planning Engineer Name Role Phone Roberto Askew MD Primary Care Provider + Reason for Visit * Reason Comments Dosage Adjustment Via Phone (anticoag Cl inic) Encounter Details Date Type Department Care Team (Latest Contact Info) Description 12/30/2023 6:45 AM EDT Anticoagulation Pharmacy Call Center [address] [facility] [place] [address] [facility] [address] [place] [address] History of pulmonary embolism* Allergies Active Allergy [...] as of this encounter (statuses as of 12/30/2023) Medications Medication Sig Dispensed Refills Start Date [...] day as needed. 0 Active nystatin (NYSTOP) 515287 UNIT/GM powderIndications:Cu taneous candidiasis Apply topically to [...] COPD, group C, by GOLD 2017 classification ([facility]),COPD, group D, by GOLD 2017 classification ([facility]) USE 2 PUFFS BY MOUTH EVERY 4 HOURS NEEDED SHORT OF BREATH 6.7 g 5 11/24/2021 Active Magnesium Oxide 400 (241.3 Mg) MG Oral TabletIndications:Co ronary artery disease involving [place] coronary artery of [...] Hour (toPROL XL)Indications:Coron uziel artery disease involving [place] coronary artery of [...] hemoglobin A1c goal of less than 8.0% ([facility]) Use 3 times daily as directed 1 Kit 0 08/31/2023 Active True Metrix Blood Glucose Test In Vitro Strip (Glucose Blood)Indications:Ty pe 2 diabetes mellitus with hemoglobin A1c goal of less than 8.0% ([facility]) Use 3 times daily as directed [...] MG Oral TabletIndications:Co ronary artery disease involving [place] coronary artery of [place] heart without angina pectoris TAKE 1 TABLET BY MOUTH IN THE MORNING. IN THE MORNING.. 90 Tablet 0 12/28/2023 Active documented as of this encounter (statuses as of 12/30/2023) Active Problems Problem Noted Date Diagnosed Date [...] as of this encounter (statuses as of 12/30/2023) Resolved Problems Problem Noted Date Diagnosed Date [...] Calculus of kidney 08/20/2015 8 Overview: right, [place] CT Vitamin D deficiency 01/31/2015 018 Body [...] as of this encounter (statuses as of 12/30/2023) Immunizations Name Administration Dates Next Due COVID-19 mRNA, LNP-s, No Pre serve, 2-Dose Series (51edu) 01/02/2021,12/05/2020 DTP Vaccine 07/19/2017,04/03/2014 Hepatitis B, 20+ [...] this encounter Progress Notes * Keren Sanchez [facility] - 12/30/2023 3:44 PM EDT Medication Therapy Disease Management - Anticoagulation Patient: Stanton Malagon Alf | : 1970 Subjective Contacts Type Contact Phone/Fax 12/30/2023 03:42 PM EDT Phone (Outgoing) OliverBill ravirey Vesna (Self) [phone] (H) Left Message Patient-Reported Symptoms: Patient Findings Comments: Patient discharged to home from [facility]. INR on 12/30/23 is 1.1. Patient discharged on home dosing. [facility] down unable to access d/c info. Advised pt to call back if given different directions or any changes/concerns. Objective Current Warfarin Dose As of 12/30/2023 Warfarin maintenance plan: 2 mg (4 mg x 0.5) every Sat; 4 mg (4 mg x 1) all other days INR Result As of 12/30/2023 INR goal: 2.0-3.0 INR used for dosing: No new INR was available at the time of this encounter. Assessment & Plan Warfarin Plan As of 12/30/2023 Full warfarin instructions: 2 mg every Sat; 4 mg all other days Next INR check: 01/03/2024 Repeat PT/INR in 4 day(s) Weekly dose: not changed Additional Dosing Information: Description GML(MTuTh) - pt prefers Trent Lester at this time Keren Sanchez [facility] Clinical Pharmacist 12/30/2023, 3:50 PM documented in this encounter Plan of Treatment Upcoming Encounters Date Type Department Care Team (Late st Contact Info) Description 01/03/2024 6:00 PM EDT Anticoagulation Pharmacy Call Center [address] [place] [address] Ccp, [facility] [address] [facility] [place] [address] 01/04/2024 2:00 PM EDT Office Visit [facility] [address] [place] [phone] Kehinde Mc MD [address] [place] [address] Health Maintenance Due Date Last Done Comments DISCUSS TOBACCO CESSATION (REFER TO SMARTSET #6030) 1970 HIV Screening 1985 O2 ASSESSMENT COMPLETED IN PAST YEAR FOR COPD 1988 Pneumococcal Vaccine: Pediatrics (0 to 5 Years) and At-Risk Patients (6 to 64 Years) (2 of 2 - PCV) 05/22/2010 05/22/2009 Cologuard 2015 Fecal Occult Blood Test 2015 Sigmoidoscopy 2015 *ADVANCE DIRECTIVE NOT ON FILE 02/03/2020 LUNG CANCER SCREENING - USE SMARTSET [id number] 2020 02/10/2019, 07/19/2017, 05/09/2017, Additional history exists [...] this encounter Medical Devices Implanted Type Area Leader Writer Device Identifier Shelf Expiration Date Model / Serial / Lot Tube Flex 3.0x2.5 [id number] - [id number] Implanted:Qty: 1 on 12/07/2014 by Juancarlos Trinidad MD at [facility] Left: Finger LANDON : ORTHOPAEDICS 11/18/2015 [id number] / / [id number] documented as of this encounter Visit Diagnoses [...] the patient have Health Care Power of Clothes Presser? No Healthcare Agents on File Name Relationship Healthcare Agent Relationship Communication Estrella Seth Other - (no specific identity) Health Care Power of Clothes Presser Care Teams Development And Planning Engineer Relationship Specialty Start Date End Date Roberto Askew MD [address] [place] [address] PCP - General Internal Medicine 04/10/20 documented as of this encounter
--- OUTSIDE RECORDS SUMMARY | 2024-03-14 13:47 | External Medical Summary | Summary of Care ---
Author Name Unknown Organization [facility] Address [address] [place] [address] Phone [phone] Care Team Providers Care Shoe Lay Out Planner Name Role Phone Roberto Askew MD Primary Care Provider + Reason for Visit * Reason Onset Date Comments Hospital Follow-Up 12/31/2023 FARIDA Encounter Details Date Type Department Care Team (Late st Contact Info) Description 12/31/2023 Telephone [facility] [address] [place] [address] Shahida Rizo RN Hospital Follow-Up [...] day as needed. 0 Active nystatin (NYSTOP) 564496 UNIT/GM powderIndications:Cu taneous candidiasis Apply topically to [...] by GOLD 2017 classification ([facility]),COPD, group D, by GOLD 2017 classification ([facility]) USE 2 PUFFS BY MOUTH EVERY [...] Solution (Duoneb)Indications: COPD, severity to be determined ([facility]),Wheezing Inhale 3 mL via nebulizer in [...] division heart without angina pectoris TAKE 1 TABLET [...] hemorrhage 10/04/2020 Coronary artery disease invo lving [place] division heart without angina pectoris [...] Calculus of kidney 08/20/2015 8 Overview: right, [place] CT Vitamin D deficiency 01/31/2015 018 Body [...] mRNA, LNP-s, No Pre serve, 2-Dose Series ([employer]) 01/02/2021,12/05/2020 DTP Vaccine 07/19/2017,04/03/2014 Hepatitis B, 20+ [...] for follow up: FARIDA #1 Admitted to: [facility], Date: 12/25/2023 Discharged to: Home, Date: 12/30/2023 Diagnosis driving hospitalization: Syncope, Complicated UTI, Respiratory Failure Attempted FARIDA - no answer. Message left to return call [phone] or . Shahida Rizo RN Transitions of Care Note Reason for Referral:Recent Admission Phone visit for follow up: FARIDA #2 Admitted to: [facility], Date: 12/25/2023 Discharged to: Home, Date: 12/30/2023 [...] the next day or so, abdominal pain History TutorDeputy Coroner Investigator of Care interventions/Action Plan: 5 - 7 [...] met, verbalizes understanding and agrees with plan. Shahida Rizo, RN documented in this encounter Plan of Treatment Upcoming Encounters Date Type Department Care Team (Late st Contact Info) Description 01/03/2024 7:10 AM EDT Laboratory Lab Mobile Phlebotomy [facility] [address] [place] [address] Mvmg, Gml Mobile Home Draw [address] [place] [address] 01/03/2024 6:00 PM EDT Anticoagulation Pharmacy Call Center [address] [place] [address] Ccps, [facility] [address] [place] [address] 01/04/2024 2:00 PM EDT Office Visit [facility] [address] [place] [phone] Kehinde Mc MD [address] [place] [address] Health Maintenance Due Date Last Done Comments DISCUSS TOBACCO CESSATION (REFER TO SMARTSET #4390) 1970 HIV Screening 1985 O2 ASSESSMENT COMPLETED IN PAST YEAR FOR COPD 1988 Pneumococcal Vaccine: Pediatrics (0 to 5 Years) and At-Risk Patients (6 to 64 Years) (2 of 2 - PCV) 05/22/2010 05/22/2009 Cologuard 2015 Fecal Occult Blood Test 2015 Sigmoidoscopy 2015 *ADVANCE DIRECTIVE NOT ON FILE 02/03/2020 LUNG CANCER SCREENING - USE SMARTSET [id number] 2020 02/10/2019, 07/19/2017, 05/09/2017, Additional history exists [...] this encounter Medical Devices Implanted Type Area Nursing Care Partner Device Identifier Shelf Expiration Date Model / Serial / Lot Tube Flex 3.0x2.5 [id number] - [id number] Implanted:Qty: 1 on 12/07/2014 by Juancarlos Trinidad MD at [facility] Left: Finger LANDON : ORTHOPAEDICS 11/18/2015 [id number] / / [id number] documented as of this encounter Advance Directives [...] the patient have Health Care Power of Bite Block Maker? No Healthcare Agents on File Name Relationship Healthcare Agent Relationship Communication Estrella eSth Other - (no specific identity) Health Care Power of Bite Block Maker Care Teams Shoe Lay Out Planner Relationship Specialty Start Date End Date Roberto Askew MD [address] [place] [address] PCP - General Internal Medicine 04/10/20 documented as of this encounter
--- OUTSIDE RECORDS SUMMARY | 2024-03-14 13:47 | External Medical Summary | Summary of Care ---
Author Name Unknown Organization [facility] Address [address] [place] [address] Phone [phone] Care Team Providers Care Broadcast Traffic Coordinator Name Role Phone Roberto Griffin MD Primary Care Provider + Reason for Visit * Reason Onset Date Comments Advice 12/31/2023 Encounter Details Date Type Department Care Team (Late st Contact Info) Description 12/31/2023 Telephone [facility] [address] [place] [phone] Roberto Griffin MD [address] [place] [address] Advice Allergies Active Allergy Reactions Criticality Noted [...] day as needed. 0 Active nystatin (NYSTOP) 186079 UNIT/GM powderIndications:Cu taneous candidiasis Apply topically to [...] MG Oral TabletIndications:Co ronary artery disease involving mentasta coronary artery of mentasta heart without angina pectoris Take by mouth [...] Hour (toPROL XL)Indications:Coron uziel artery disease involving mentasta coronary artery of mentasta heart without angina pectoris TAKE 1 & [...] MG Oral TabletIndications:Co ronary artery disease involving mentasta coronary artery of mentasta heart without angina pectoris TAKE 1 TABLET [...] cut, crush or chew 0 4 Active metOLazone 2.5 MG Oral [...] 01/24/2021 Opioid dependence, uncomplicated 01/22/2021 History of IA (myocardial infarction) 01/22/2021 Morbid obesity with BMI of 50.0-59.9, adult 09/20 History of subdural hematoma 10/04/2020 Gastroesophageal reflux disease without esophagi tis 10/04/2020 History of subarachnoid hemorrhage 10/04/2020 Coronary artery disease invo lving mentasta heart without angina pectoris 10/04/2020 COPD, group [...] Calculus of kidney 08/20/2015 8 Overview: right, [place] CT Vitamin D deficiency 01/31/2015 018 Body [...] mRNA, LNP-s, No Pre serve, 2-Dose Series ([employer]) 01/02/2021,12/05/2020 DTP Vaccine 07/19/2017,04/03/2014 Hepatitis B, 20+ [...] Encounter - Shahida Rizo RN - 12/31/2023 2:36 PM EDT Called patient and notified of below message. Encouraged heart failure diet, medication and fluid restriction compliance as well as follow up with PCP. Patient verbalized understanding. * Addendum Note - Roberto Griffin MD - 12/31/2023 1:49 PM EDTAddended by: ROBERTO GRIFFIN on: 12/31/2023 01:49 PM Modules accepted: Orders * Telephone Encounter - Roberto Griffin MD - 12/31/2023 1:44 PM EDT Would continue miralax, docusate, senna. Can add dulcolax otc for 2-3 days to see if helps with bm Hard to assess fluid status w/o visit. I updated chart to reflect taking 100 mg torsemide (we had 50 mg). I would try to encourage him to be compliant with fluid restriction, heart failure diet and medicine. Continue to monitor weights, should be seen if fluid/edema worsening. * Telephone Encounter - Shahida Rizo RN - 12/31/2023 1:16 PM EDT Provider to address: Patient returned call for AWV. Discharged form [facility] 12/30/2023 for Syncope, Complicated UTI, Respiratory Failure Please advise: States he has had an increase of LE swelling Lt > Rt. Since discharge. Did not think LE edema was present in hospital. States Metolazone was discontinued at a prior hospitalization, (was not on his discharge summary) and his dose of Torsemide was increased (noted to be 100mg daily on summary) and currently taking 100mg daily. Denies SOB. Wears O2 only at night, does not need during the day. Also states he has not had BM since Wednesday prior to hospitalization. + Flatus. Now taking Miralaxdaily, staying hydrated within fluid restriction. Also taking Senna and docusate sodium. Reason for Call: No chief complaint on file. Contact: Telephone Call Contact Type: Advice Outcome: See above Face to face time spent with Patient (minutes): 0 Total Time including non face to face (minutes): 10 documented in this encounter Plan of Treatment Upcoming Encounters Date Type Department Care Team (Late st Contact Info) Description 01/03/2024 7:10 AM EDT Laboratory Lab Mobile Phlebotomy [facility] [address] [place] [address] [facility], Gml Mobile Home Draw [address] [place] [address] 01/03/2024 6:00 PM EDT Anticoagulation Pharmacy Call Center [address] [place] [address] [facility] [address] [place] [address] 01/04/2024 2:00 PM EDT Office Visit [facility] [address] [place] [address] Kehinde Mc MD [address] [place] [address] Health Maintenance Due Date Last Done Comments DISCUSS TOBACCO CESSATION (REFER TO SMARTSET #7703) 1970 HIV Screening 1985 O2 ASSESSMENT COMPLETED IN PAST YEAR FOR COPD 1988 Pneumococcal Vaccine: Pediatrics (0 to 5 Years) and At-Risk Patients (6 to 64 Years) (2 of 2 - PCV) 05/22/2010 05/22/2009 Cologuard 2015 Fecal Occult Blood Test 2015 Sigmoidoscopy 2015 *ADVANCE DIRECTIVE NOT ON FILE 02/03/2020 LUNG CANCER SCREENING - USE SMARTSET [id number] 2020 02/10/2019, 07/19/2017, 05/09/2017, Additional history exists [...] this encounter Medical Devices Implanted Type Area Driver Guide Device Identifier Shelf Expiration Date Model / Serial / Lot Tube Flex 3.0x2.5 [id number] - [id number] Implanted:Qty: 1 on 12/07/2014 by Juancarlos Trinidad MD at [facility] Left: Finger [employer] : ORTHOPAEDICS 11/18/2015 [id number] / / [id number] documented as of this encounter Visit Diagnoses Diagnosis Chronic constipation- Primary Unspecified constipation documented in this encounter Advance Directives Latest [...] the patient have Health Care Power of Cash Applications Clerk? No Healthcare Agents on File Name Relationship Healthcare Agent Relationship Communication Estrella Seth Other - (no specific identity) Health Care Power of Cash Applications Clerk Care Teams Broadcast Traffic Coordinator Relationship Specialty Start Date End Date Roberto Griffin MD [address] [place] [address] PCP - General Internal Medicine 04/10/20 documented as of this encounter
--- OUTSIDE RECORDS SUMMARY | 2024-03-14 13:47 | External Medical Summary | Summary of Care ---
Author Name Unknown Organization [facility] Address [address] [place] [address] Phone [phone] Care Team Providers Care Program Medical Director Name Role Phone Roberto Askew MD Primary Care Provider + Reason for Visit * Reason Onset Date Comments Hospital Follow-Up 12/31/2023 FARIDA Encounter Details Date Type Department Care Team (Late st Contact Info) Description 12/31/2023 Telephone [facility] [address] [place] [address] Shahida Rizo RN Hospital Follow-Up [...] day as needed. 0 Active nystatin (NYSTOP) 606876 UNIT/GM powderIndications:Cu taneous candidiasis Apply topically to [...] group C, by GOLD 2017 classification ([facility]),COPD, group D, by GOLD 2017 classification ([facility]) USE 2 PUFFS BY MOUTH EVERY 4 HOURS NEEDED SHORT OF BREATH 6.7 g 5 11/24/2021 Active Magnesium Oxide 400 (241.3 Mg) MG Oral TabletIndications:Co ronary artery disease involving [place] coronary artery of lumbee heart without angina pectoris Take by mouth [...] Hour (toPROL XL)Indications:Coron uziel artery disease involving [place] coronary artery of lumbee heart without angina pectoris TAKE 1 & [...] MG Oral TabletIndications:Co ronary artery disease involving [place] coronary artery of lumbee heart without angina pectoris TAKE 1 TABLET [...] 01/24/2021 Opioid dependence, uncomplicated 01/22/2021 History of [place] (myocardial infarction) 01/22/2021 Morbid obesity with BMI of 50.0-59.9, adult 09/20 History of subdural hematoma 10/04/2020 Gastroesophageal reflux disease without esophagi tis 10/04/2020 History of subarachnoid hemorrhage 10/04/2020 Coronary artery disease invo lving lumbee heart without angina pectoris 10/04/2020 COPD, group [...] Calculus of kidney 08/20/2015 8 Overview: right, [place] CT Vitamin D deficiency 01/31/2015 018 Body [...] mRNA, LNP-s, No Pre serve, 2-Dose Series ([employer]) 01/02/2021,12/05/2020 DTP Vaccine 07/19/2017,04/03/2014 Hepatitis B, 20+ [...] visit for follow up: FARIDA Admitted to: [facility], Date: 12/25/2023 Discharged to: Home, Date: 12/30/2023 Diagnosis driving hospitalization: Syncope, Complicated UTI, Respiratory Failure New medication: Ciprofloxacin No discontinued medications Attempted FARIDA - no answer. Message left to return call [phone] or . Shahida Rizo RN documented in this encounter Plan of Treatment Upcoming Encounters Date Type Department Care Team (Late st Contact Info) Description 01/03/2024 7:10 AM EDT Laboratory Lab Mobile Phlebotomy [facility] [address] [place] [address] [address] Mvmg, Gml Mobile Home Draw [address] [facility] [place] [address] 01/03/2024 6:00 PM EDT Anticoagulation Pharmacy Call Center WB [address] [facility] [place] [address] Ccps, [facility] [address] [facility] [place] [address] 01/04/2024 2:00 PM EDT Office Visit Family [facility] [address] [place] [address] Kehinde Mc MD [address] [place] [address] Health Maintenance Due Date Last Done Comments DISCUSS TOBACCO CESSATION (REFER TO SMARTSET #[id number]) 1970 HIV Screening 1985 O2 ASSESSMENT COMPLETED IN PAST YEAR FOR COPD 1988 Pneumococcal Vaccine: Pediatrics (0 to 5 Years) and At-Risk Patients (6 to 64 Years) (2 of 2 - PCV) 05/22/2010 05/22/2009 Cologuard 2015 Fecal Occult Blood Test 2015 Sigmoidoscopy 2015 *ADVANCE DIRECTIVE NOT ON FILE 02/03/2020 LUNG CANCER SCREENING - USE SMARTSET [id number] 2020 02/10/2019, 07/19/2017, 05/09/2017, Additional history exists [...] this encounter Medical Devices Implanted Type Area Last Cleaner Device Identifier Shelf Expiration Date Model / Serial / Lot Tube Flex 3.0x2.5 [id number] - [id number] Implanted:Qty: 1 on 12/07/2014 by Juancarlos Trinidad MD at [facility] Left: Finger [employer] : ORTHOPAEDICS 11/18/2015 [id number] / / [id number] documented as of this encounter Advance Directives [...] the patient have Health Care Power of Water/Wastewater Engineer? No Healthcare Agents on File Name Relationship Healthcare Agent Relationship Communication Estrella Seth Other - (no specific identity) Health Care Power of Water/Wastewater Engineer Care Teams Program Medical Director Relationship Specialty Start Date End Date Roberto Askew MD [address] [facility] [place] [address] PCP - General Internal Medicine 04/10/20 documented as of this encounter
--- OUTSIDE RECORDS SUMMARY | 2024-03-14 13:47 | External Medical Summary | Summary of Care ---
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 [address] [place] [address] Roberto Griffin MD [address] [place] [address] Advice Allergies Active Allergy Reactions Criticality [...] day as needed. 0 Active nystatin (NYSTOP) 549479 UNIT/GM powderIndications:Cu taneous candidiasis Apply topically to [...] MG Oral TabletIndications:Co ronary artery disease involving [place] coronary artery of chilkoot heart without angina pectoris Take by mouth [...] Hour (toPROL XL)Indications:Coron uziel artery disease involving [place] coronary artery of chilkoot heart without angina pectoris TAKE 1 & [...] less than 8.0% ([facility]) Use 3 times daily as directed 1 [...] MG Oral TabletIndications:Co ronary artery disease involving chilkoot coronary artery of chilkoot heart without angina pectoris TAKE 1 TABLET [...] hemorrhage 10/04/2020 Coronary artery disease invo lving chilkoot heart without angina pectoris 10/04/2020 COPD, group [...] Calculus of kidney 08/20/2015 8 Overview: right, [place] CT Vitamin D deficiency 01/31/2015 018 Body [...] mRNA, LNP-s, No Pre serve, 2-Dose Series ([employer]) 01/02/2021,12/05/2020 DTP Vaccine 07/19/2017,04/03/2014 Hepatitis B, 20+ [...] encounter Miscellaneous Notes * Addendum Note - Roberto Griffin MD [...] Patient returned call for AWV. Discharged form [facility] 12/30/2023 for Syncope, Complicated UTI, Respiratory Failure [...] EDT Laboratory Lab Mobile Phlebotomy [facility] [address] [place] [address] Mvmg, Gml Mobile Home Draw [address] [place] [address] [address] 01/03/2024 6:00 PM EDT Anticoagulation Pharmacy Call Center WB [address] [facility] [place] [address] Ccps, [facility] [address] [facility] [place] [address] 01/04/2024 2:00 PM EDT Office Visit Family [facility] [address] [place] [address] Kehinde Mc MD [address] [place] [address] Health Maintenance Due Date Last [...] 02/03/2020 LUNG CANCER SCREENING - USE SMARTSET [id number] 2020 02/10/2019, 07/19/2017, 05/09/2017, Additional history exists [...] this encounter Medical Devices Implanted Type Area Relief Docking Master Device Identifier Shelf Expiration Date Model / Serial / Lot Tube Flex 3.0x2.5 [id number] - [id number] Implanted:Qty: 1 on 12/07/2014 by Juancarlos Trinidad MD at [facility] Left: Finger [employer] : ORTHOPAEDICS 11/18/2015 [id number] / / [id number] documented as of this encounter Visit Diagnoses [...] patient have Health Care Power of Supervisor Home Energy Consultant? No Healthcare Agents on File Name Relationship Healthcare Agent Relationship Communication Estrella Seth Other - (no specific identity) Health Care Power of Supervisor Home Energy Consultant Care Teams Historic Clothing And Costume Maker Relationship Specialty Start Date End Date Roberto Griffin MD [address] [place] [address] PCP - General Internal Medicine 04/10/20 documented as of this encounter
--- OUTSIDE RECORDS SUMMARY | 2024-03-14 13:47 | External Medical Summary | Summary of Care ---
Author Name Unknown Organization [facility] Address [address] [place] [address] Phone [phone] Care Team Providers Care Optometrist Name Role Phone Roberto Askew MD Primary Care Provider + Reason for Visit * Reason Onset Date Comments Advice 12/31/2023 Encounter Details Date Type Department Care Team (Late st Contact Info) Description 12/31/[address] [facility] [address] [place] [phone] Roberto Askew MD [address] [place] [address] Advice Allergies Active Allergy Reactions Criticality [...] day as needed. 0 Active nystatin (NYSTOP) 333328 UNIT/GM powderIndications:Cu taneous candidiasis Apply topically to [...] MG Oral TabletIndications:Co ronary artery disease involving [place] coronary artery of [place] heart without angina pectoris Take by mouth [...] Hour (toPROL XL)Indications:Coron uziel artery disease involving [place] coronary artery of [place] heart without angina pectoris TAKE 1 & [...] MG Oral TabletIndications:Co ronary artery disease involving [place] coronary artery of [place] heart without angina pectoris TAKE 1 TABLET [...] cut, crush or chew 0 4 Active Torsemide 100 MG Oral [...] hemorrhage 10/04/2020 Coronary artery disease invo lving [place] heart without angina pectoris 10/04/2020 COPD, group [...] Calculus of kidney 08/20/2015 8 Overview: right, [place] CT Vitamin D deficiency 01/31/2015 018 Body [...] of inactive term Person feigning illness 04/08/2006 1211/2011 Overview: ER visit Person feigning illness 04/08/200609/20 [...] mRNA, LNP-s, No Pre serve, 2-Dose Series ([employer]) 01/02/2021,12/05/2020 DTP Vaccine 07/19/2017,04/03/2014 Hepatitis B, 20+ [...] encounter Miscellaneous Notes * Telephone Encounter - Roberot Askew MD - 12/31/2023 1:44 PM EDT Would continue miralax, docusate and can add senna * Telephone Encounter - Shahida Rizo RN - 12/31/2023 1:16 PM EDT Provider to address: Patient returned call for AWV. Discharged form [facility] 12/30/2023 for Syncope, Complicated UTI, Respiratory [...] EDT Laboratory Lab Mobile Phlebotomy [facility] [address] [facility] [place] [address] Mvmg, Gml Mobile Home Draw [address] [place] [address] 01/03/2024 6:00 PM EDT Anticoagulation Pharmacy Call Center [address] [place] [address] [facility] [address] [facility] [place] [address] 01/04/2024 2:00 PM EDT [address] [address] Kehinde Mc MD [address] [facility] [place] [address] Health Maintenance Due Date Last Done Comments DISCUSS TOBACCO CESSATION (REFER TO SMARTSET #7884) 1970 HIV Screening 1985 O2 ASSESSMENT COMPLETED IN PAST YEAR FOR COPD 1988 Pneumococcal Vaccine: Pediatrics (0 to 5 Years) and At-Risk Patients (6 to 64 Years) (2 of 2 - PCV) 05/22/2010 05/22/2009 Cologuard 2015 Fecal Occult Blood Test 2015 Sigmoidoscopy 2015 *ADVANCE DIRECTIVE NOT ON FILE 02/03/2020 LUNG CANCER SCREENING - USE SMARTSET [id number] 2020 02/10/2019, 07/19/2017, 05/09/2017, Additional history exists [...] this encounter Medical Devices Implanted Type Area Form Setter Device Identifier Shelf Expiration Date Model / Serial / Lot Tube Flex 3.0x2.5 [id number] - [id number] Implanted:Qty: 1 on 12/07/2014 by Juancarlos Trinidad MD at [facility] Left: Finger [employer] : ORTHOPAEDICS 11/18/2015 [id number] / / [id number] documented as of this encounter Visit Diagnoses [...] the patient have Health Care Power of Arcade Technician? No Healthcare Agents on File Name Relationship Healthcare Agent Relationship Communication Estrella Seth Other - (no specific identity) Health Care Power of Arcade Technician Care Teams Optometrist Relationship Specialty Start Date End Date Roberto Askew MD [address] [place] [address] PCP - General Internal Medicine 04/10/20 documented as of this encounter
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
[2024-03-14] MEDS: PHYTONADIONE 5 MG in DEXTROSE 5% 50 ML IV ONE (14:11)
--- NOTE | 2024-03-14 14:42 | History & Physical Report ---
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 Comparison is made to knee radiographs 11/02/2021 FINDINGS: There is no evidence of an acute fracture. Degenerative changes are seen most prominent in the medial compartment. No joint effusion is seen. No soft tissue abnormality is seen. IMPRESSION: Degenerative changes without evidence of acute injury. ACT 112: Negative or not required by law. Electronically signed by: Armand Tobar M.D. 03/14/2024 10:34 AM Chest X-Ray 03/14/24 12:30 SINGLE VIEW CHEST CLINICAL HISTORY: Hypoxia FINDINGS: An AP, portable, upright chest radiograph is compared to study performed earlier the same day 03/14/2024. The examination is degraded by portable technique and apical lordotic positioning. An electronic device projects over the heart. The heart is enlarged. The pulmonary vasculature is not congested. Mild atelectasis is seen at the lung bases. The lungs and pleural spaces are otherwise clear. No pneumothorax is seen. The skeletal structures are osteopenic. There is chronic deformity of the left clavicle. IMPRESSION: Cardiomegaly with no active disease in the chest. ACT 112: Negative or not required by law. Electronically signed by: Misael Lopez M.D. 03/14/2024 1:37 PM Code Status & VTE Plan VTE Prophylaxis Plan VTE Prophylaxis will be ordered: Yes (3) Hematuria Hematuria type: gross Qualified Code(s): R31.0 - Gross hematuria (5) Syncope Syncope type: unspecified Qualified Code(s): R55 - Syncope and collapse (8) COPD (chronic obstructive pulmonary disease) COPD type: unspecified COPD Qualified Code(s): J44.9 - Chronic obstructive pulmonary disease, unspecified
[2024-03-14] MEDS: cefTRIAXone SODIUM 2,000 MG/50 ML BAG IV STA (14:58)
[2024-03-14] MEDS: NICOTINE 21 MG/24 HR TDSY TD SCH (15:22)
[2024-03-14 15:39] LABS: Appearance Urine Turbid (Clear); Bacteria Urine Automated None Seen (None Seen); Bilirubin Urine Negative (Negative); Blood Urine 3+ (Negative); Color Urine Dark Yellow; Epithelial Cell Urine Auto 0-2 /hpf (0-2); Glucose Urine UA Negative (Negative); Ketones Urine Trace (Negative); Leukocyte Esterase Urine 1+ (Negative); Nitrite Urine Negative (Negative); Protein Urine 3+ (Negative); RBC Urine Automated >20 /hpf (0-2); Specific Gravity Urine > 1.045 (1.000-1.030); Urobilinogen Urine Negative (Negative); WBC Urine Automated >50 /hpf (0-5); pH Urine 5.5 (4.5-7.5)
[2024-03-14] MEDS ORDERED: NITROGLYCERIN SL 0.4 MG/TAB TAB SL PRN (16:52)
[2024-03-14] MEDS ORDERED: GLUCOSE 40% GEL 15 GM TUBE PO PRN (16:52)
[2024-03-14] MEDS ORDERED: ONDANSETRON INJ 2 MG/ML 2 ML VIAL IV PRN (16:52)
[2024-03-14] MEDS ORDERED: hydrOXYzine HCl 25 MG TAB PO PRN (16:52)
[2024-03-14] MEDS ORDERED: CARBOHYDRATES FOR HYPOGLYCEMIA PO PRN (16:52)
[2024-03-14] MEDS ORDERED: NON-FORMULARY MEDICATION (Dextromethorphan-Guaifenesin [Mucinex Dm] 30-600 mg Tablet Exten PO PRN (16:52)
[2024-03-14] MEDS ORDERED: BUDESONIDE 0.5 MG/2 ML VIAL (PULMICORT) INH SCH (16:52)
[2024-03-14] MEDS ORDERED: DEXTROSE 50% 50 ML SYRINGE IV PRN (16:52)
[2024-03-14] MEDS ORDERED: GLUCOSE 10 TAB/TUBE PO PRN (16:52)
[2024-03-14] MEDS ORDERED: GLUCAGON FOR INJ 1 MG VIAL SQ PRN (16:52)
[2024-03-14] MEDS ORDERED: EPINEPHrine ADULT AUTO-INJECT 0.3 MG SYR IM PRN (16:52)
[2024-03-14] MEDS: CYCLOBENZAPRINE HCL 10 MG TAB PO PRN (17:28)
[2024-03-14] MEDS: LIDOCAINE 5% 1 PATCH TD SCH ×2 (17:49→18:06)
[2024-03-14] MEDS: INSULIN ASPART PER UNIT CHARGE SC SCH (18:02)
[2024-03-14] MEDS: buprenorphine HCL 2 MG SUBL SL ONE (18:06)
[2024-03-14] MEDS: MAGNESIUM SULFATE / D5W 1 GM/100 ML BAG IV SCH (18:09)
[2024-03-14] MEDS: BUDESONIDE 0.5 MG/2 ML VIAL (PULMICORT) INH SCH (20:23)
[2024-03-14] MEDS: ALBUT/IPRATROP 3MG/0.5MG NEB 3 ML VIAL INH SCH (20:23)
[2024-03-14] MEDS: LANTUS PER UNIT CHARGE SC SCH (21:39)
[2024-03-14] MEDS: GABAPENTIN 800 MG TAB PO SCH (21:40)
[2024-03-14] MEDS: METOPROLOL SUCC 50MG EXT REL TAB PO SCH (21:40)
[2024-03-14] MEDS: methylPREDNISolone 40 MG in SYRINGE 0 ML IV SCH (21:41)
[2024-03-14] MEDS: buprenorphine HCL 8 MG SUBL SL SCH (21:41)
[2024-03-14] MEDS: LORazepam 0.5 MG TAB PO STA (21:41)
[2024-03-14] MEDS: DICLOFENAC SOD 1% GEL 100 GM TUBE EXT SCH (21:42)
[2024-03-14] MEDS: ACETAMINOPHEN 1,000 MG/100 ML VIAL IV PRN (22:22)
[2024-03-14] MEDS: diphenhydrAMINE 50 MG/ML VIAL IV PRN (22:45)
[2024-03-15] MEDS: PANTOprazole 40 MG TAB PO SCH (06:23)
[2024-03-15 07:21] LABS: Hematocrit (blood only) 41.6 % (42.0-52.0); Hemoglobin 13.6 g/dl (14.0-18.0); Mean Corpuscular Hemoglobin 26.1 pg (25.0-34.0); Mean Corpuscular Hgb Conc 32.7 g/dL (32.0-36.0); Mean Corpuscular Volume 79.8 fL (80.0-100.0); Mean Platelet Volume 11.6 fL (9.4-12.4); Platelet Count 240 K/uL (130-400); RDW Coefficient of Variation 18.2 % (11.5-14.5); RDW Standard Deviation 51.8 fL (36.4-46.3); Red Blood Count 5.21 M/uL (4.70-6.10); White Blood Count 12.84 K/ul (4.8-10.8)
[2024-03-15 07:37] LABS: INR 1.7 (0.9-1.1); Prothrombin Time 17.8 Seconds (9.0-12.0)
[2024-03-15 07:45] LABS: BUN Creatinine Ratio 10.1 (10-20); Creatinine Clr Calc Pharmacy 93.4 ml/min; Est GFR (African American) 72.9 ml/min; Est GFR (Non-African American) 62.9 ml/min; Magnesium 1.8 mg/dl (1.7-2.4); Phosphorus 1.6 mg/dl (2.5-4.9); Potassium 4.2 mmol/L (3.5-5.1)
[2024-03-15] MEDS: INSULIN ASPART PER UNIT CHARGE SC SCH (08:21)
[2024-03-15] MEDS: ASPIRIN 81 MG ECTAB PO SCH (08:22)
[2024-03-15] MEDS: ATORVASTATIN 40 MG TAB PO SCH (08:23)
[2024-03-15] MEDS: FAMOTIDINE 20 MG TAB PO SCH (08:24)
[2024-03-15] MEDS: FINASTERIDE 5 MG TAB PO SCH (08:24)
[2024-03-15] MEDS: DULoxetine HCL 60 MG CAP PO SCH (08:24)
[2024-03-15] MEDS: FLUTICASONE PROPIONATE NA SPR 16 GM BTL SCH (08:25)
[2024-03-15] MEDS: FLUTICASONE/VILANTEROL 200/25MCG 14 PUFFS/INHALER INH SCH (08:25)
[2024-03-15] MEDS: ISOSORBIDE DINITRATE 20 MG TAB PO SCH (08:26)
[2024-03-15] MEDS: MAGNESIUM OXIDE 400 MG TAB PO SCH (08:27)
[2024-03-15] MEDS: LACTOBACILLUS ACIDOPHILUS 1 GM PACK PO SCH (08:27)
[2024-03-15] MEDS: TAMSULOSIN HCL 0.4 MG CAP PO SCH (08:30)
--- NOTE | 2024-03-15 10:10 | Electrocardiogram Report ---
Test Reason : Blood Pressure : / mmHG Vent. Rate : 080 BPM Atrial Rate : 080 BPM P-R Int : 150 ms QRS Dur : 106 ms QT Int : 376 ms P-R-T Axes : 068 037 053 degrees QTc Int : 433 ms Normal sinus rhythm Incomplete right bundle branch block Borderline ECG When compared with ECG of 26-DEC-2023 14:14, ST no longer depressed in Lateral leads Confirmed by Da Browning ([id number]) on 03/15/2024 10:10:24 AM Referred By: REFERRED SELF Confirmed By:Da Browning
[2024-03-15] MEDS ORDERED: HYDROCORTISONE 2.5% OINT 20 GM TUBE EXT PRN (10:44)
[2024-03-15] MEDS: LORazepam 0.5 MG TAB PO PRN (11:11)
[2024-03-15] MEDS: guaiFENesin 600 MG TABCR PO SCH (11:11)
[2024-03-15] MEDS: POT PHOSPHATE MONOBASIC W/ SOD TAB PO SCH (13:44)
[2024-03-15] MEDS: buprenorphine HCL 2 MG SUBL SL SCH (13:44)
[2024-03-15] MEDS: cefTRIAXone SODIUM 2,000 MG/50 ML BAG IV SCH (13:45)
[2024-03-15] MEDS: ACETAMINOPHEN 1,000 MG/100 ML VIAL IV PRN (14:30)
--- NOTE | 2024-03-15 16:43 | Hospitalist Progress Note ---
Date of Service March 15, 2024 Assessment & Plan (1) Allergic reaction: (2) Supratherapeutic INR: (3) Hematuria: (4) UTI (urinary tract infection) due to urinary indwelling catheter: (5) Syncope: (6) Hypomagnesemia: (7) Current use of group home anticoagulation: (8) COPD (chronic obstructive pulmonary disease): (9) 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: (10) Morbid obesity: (11) Tobacco abuse: Plan Allergic reaction Patient had Allergic reaction likely from IV contrast Patient received epinephrine, steroids and nebs in ED Continue IV Solu-Medrol, Pepcid, Benadryl as needed Titrate down steroids as able CAUTI Last Lloyd change was during recent admission in December Lloyd catheter changed in ED on presentation Urine culture growing gram-negative Continue IV Rocephin Hematuria In setting of supratherapeutic INR Hematuria resolved Monitor CBC Right knee pain Secondary to fall Ambulatory dysfunction --Knee X ray:Degenerative changes without evidence of acute injury. Fall precautions PT OT Consulted orthopedics Hypophosphatemia Replace electrolytes as needed Monitor H/O Recurrent PE Supratherapeutic INR due to Coumadin INR reversed with vitamin K Resume Coumadin as able Monitor INR Syncope with Fall Fall precautions PT/OT as able COPD Chronic wheezing Continue nebs, steroids, inhalers Titrate down steroids as able DM II Continue insulin per protocol Monitor BGs Hypomagnesemia replace and monitor Morbid obesity BMI 39.7 Tobacco abuse continues to smoke 1 pack a day Recommended quitting H/o chronic diastolic CHF states he has run out of torsemide euvolemic currently Will resume home diuretics tmw BPH with urinary retention continue flomax and finasteride. GERD continue PPI, pepcid Chronic pain on buprenorphine, duloxetine, gabapentin, flexeril prn. DVT Px: Coumadin CODE STATUS Full code Admission and Anticipated Discharge Date Admission Date: March 14, 2024 Subjective Patient is seen and examined at bedside Hematuria resolved States having right knee and neck pain Denies any chest pain, nausea, vomiting, abdominal pain Feels anxious No other complaints Review of Systems Review of Systems: All systems reviewed & are unremarkable except as noted in Subjective Physical Exam Physical Exam: Physical Exam: Vitals signs as noted above General Appearance:Morbidly Obese, no apparent distress Head: normocephalic, Atraumatic Eyes: normal inspection, EOMI Neck: supple, Trachea midline Respiratory/Chest: Decreased breath sounds, scattered rhonchi, No accessory muscle use Cardiovascular: S1, S2, No murmur Abdomen/GI:Soft, Non tender, Bowel sounds present Extremities/Musculoskeletal:normal inspection, Mild edema, + chronic venous stasis changes, R knee tender Neurologic/Psych:AAOX3, grossly no focal neurological deficits Skin: normal color, warm Results & Data Results & Data Vital Signs (Past 12 Hours) Vital Signs Temp Pulse Pulse Resp BP Pulse Ox O2 Del Method 03/15/24 15:17 36.9 C 75 20 123/66 94 Room Air 03/15/24 13:10 75 16 93 Room Air 03/15/24 11:32 36.8 C 75 18 113/62 96 Room Air 03/15/24 10:36 80 03/15/24 08:38 Room Air 03/15/24 08:00 36.9 C 74 19 102/54 L 92 Room Air 03/15/24 07:18 74 18 94 Laboratory Results Short CBC 03/15/24 Range/Units 06:43 WBC 12.84 H (4.8-10.8) K/ul Hgb 13.6 L (14.0-18.0) g/dl Hct 41.6 L (42.0-52.0) % Plt Count 240 (130-400) K/uL BMP 03/15/24 06:43 Sodium 132 L Potassium 4.2 Chloride 100 Carbon Dioxide 26 BUN 13 Creatinine 1.29 D Glucose 358 H* Calcium 9.0 (3) Hematuria Hematuria type: gross Qualified Code(s): R31.0 - Gross hematuria (5) Syncope Syncope type: unspecified Qualified Code(s): R55 - Syncope and collapse (8) COPD (chronic obstructive pulmonary disease) COPD type: unspecified COPD Qualified Code(s): J44.9 - Chronic obstructive pulmonary disease, unspecified
[2024-03-15] MEDS: WARFARIN SOD 3 MG TAB PO SCH (17:13)
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
[2024-03-16] MEDS: TORSEMIDE 100 MG TAB PO SCH (08:37)
[2024-03-16] MEDS: SPIRONOLACTONE 25 MG TAB PO SCH (08:37)
[2024-03-16] MEDS: SENNA 8.6 MG TAB PO PRN (08:40)
[2024-03-16] MEDS ORDERED: hydrOXYzine HCl 10 MG TAB PO PRN (08:46)
[2024-03-16] MEDS: POLYETHYLENE (MIRALAX) 17 GM PACK PO PRN (08:54)
[2024-03-16 09:00] LABS: Hematocrit (blood only) 39.3 % (42.0-52.0); Hemoglobin 12.7 g/dl (14.0-18.0); Mean Corpuscular Hgb Conc 32.3 g/dL (32.0-36.0); Mean Corpuscular Volume 80.4 fL (80.0-100.0); Mean Platelet Volume 11.2 fL (9.4-12.4); Platelet Count 231 K/uL (130-400); RDW Coefficient of Variation 18.2 % (11.5-14.5); RDW Standard Deviation 53.1 fL (36.4-46.3); Red Blood Count 4.89 M/uL (4.70-6.10); White Blood Count 17.01 K/ul (4.8-10.8)
[2024-03-16 09:18] LABS: INR 1.5 (0.9-1.1)
[2024-03-16 09:23] LABS: BUN Creatinine Ratio 21.6 (10-20); Calcium 9.5 mg/dl (8.6-10.3); Creatinine Clr Calc Pharmacy 139.2 ml/min; Est GFR (African American) 96.8 ml/min; Est GFR (Non-African American) 83.5 ml/min; Potassium 4.5 mmol/L (3.5-5.1)
[2024-03-16] MEDS: methylPREDNISolone 40 MG in SYRINGE 0 ML IV SCH (09:35)
[2024-03-16] MEDS: predniSONE 20 MG TAB PO SCH (09:49)
[2024-03-16] MEDS ORDERED: Nursing to Pharmacy Communication SCH (10:00)
[2024-03-16] MEDS: levoFLOXacin 750 MG TAB PO SCH (10:10)
[2024-03-16] MEDS: INSULIN HUMAN NPH SC SCH (11:40)
--- NOTE | 2024-03-16 14:34 | Magnetic Resonance Report ---
MR knee RT wo con CLINICAL HISTORY: r/o ligamentous injury TECHNIQUE: Multiplanar, multisequence images of the right knee were obtained. Comparison: Comparison is made to knee radiographs 03/14/2024 FINDINGS: Exam is limited by patient motion. The biceps femoris tendon, quadriceps mechanism and patellar tendons are intact. The medial and later al collateral ligaments are intact. The anterior and posterior cruciate ligaments are intact. Thinnin g of the medial meniscus is seen without yeimi tear. There is truncation of the lateral meniscus. Ost eoarthritic changes are seen. There are serpiginous lesions in the tibia and femur compatible with av ascular necrosis. There is a trace joint effusion. IMPRESSION: 1. Highly limited exam due to patient motion. There is possible bucket-handle type tear of the later al meniscus. Degenerative changes are seen in the medial meniscus without yeimi tear. 2. Serpiginous lesions in the tibia and femur compatible with avascular necrosis. 3. Trace joint effusion. ACT 112: Negative or not required by law. Electronically signed by: Armand Tobar M.D. 03/16/2024 2:33 PM
[2024-03-16] MEDS ORDERED: WARFARIN SOD 2 MG TAB PO SCH (16:00)
--- NOTE | 2024-03-16 16:06 | Hospitalist Progress Note ---
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: (10) Morbid obesity: (11) Tobacco abuse: Plan Allergic reaction Patient had Allergic reaction likely from IV contrast Patient received epinephrine, steroids and nebs in ED Continue Pepcid, Benadryl as needed IV Solu-Medrol changed to prednisone Taper down steroids as able CAUTI Last Lloyd change was during recent admission in December Lloyd catheter changed in ED on presentation Urine culture grew Enterobacter cloacae Continue IV Rocephin>> changed to Levaquin Hematuria In setting of supratherapeutic INR Hematuria resolved Monitor CBC Right knee pain Secondary to fall Ambulatory dysfunction ? Lateral meniscal tear Avascular necrosis of R tibia/femur --Knee X ray:Degenerative changes without evidence of acute injury. --R knee MRI:Highly limited exam due to patient motion. There is possible bucket-handle type tear of the lateral meniscus. Degenerative changes are seen in the medial meniscus without yeimi tear. Serpiginous lesions in the tibia and femur compatible with avascular necrosis. Trace joint effusion. -Fall precautions PT OT Appreciate orthopedics input Hypophosphatemia Replace electrolytes as needed Monitor H/O Recurrent PE Supratherapeutic INR due to Coumadin INR reversed with vitamin K Resumed Coumadin Monitor INR:1.5 today Syncope with Fall Fall precautions PT/OT as able COPD Chronic wheezing Continue nebs, steroids, inhalers Titrate down steroids as able DM II Continue insulin per protocol Monitor BGs Hypomagnesemia replace and monitor Morbid obesity BMI 39.7 Tobacco abuse continues to smoke 1 pack a day Recommended quitting H/o chronic diastolic CHF states he has run out of torsemide euvolemic currently Continue home diuretics BPH with urinary retention continue flomax and finasteride. GERD continue PPI, Pepcid Chronic pain on buprenorphine, duloxetine, gabapentin, flexeril prn. DVT Px: Coumadin CODE STATUS Full code Admission and Anticipated Discharge Date Admission Date: March 14, 2024 Subjective Patient is seen and examined at bedside Hematuria resolved States having right knee and neck pain Denies any chest pain, nausea, vomiting, abdominal pain Feels anxious No other complaints Review of Systems Review of Systems: All systems reviewed & are unremarkable except as noted in Subjective Physical Exam Physical Exam: Physical Exam: Vitals signs as noted above General Appearance:Morbidly Obese, no apparent distress Head: normocephalic, Atraumatic Eyes: normal inspection, EOMI Neck: supple, Trachea midline Respiratory/Chest: Decreased breath sounds, scattered rhonchi, No accessory muscle use Cardiovascular: S1, S2, No murmur Abdomen/GI:Soft, Non tender, Bowel sounds present Extremities/Musculoskeletal:normal inspection, Mild edema, + chronic venous stasis changes, R knee tender Neurologic/Psych:AAOX3, grossly no focal neurological deficits Skin: normal color, warm Results & Data Results & Data Vital Signs (Past 12 Hours) Vital Signs Temp Pulse Pulse Pulse Resp BP BP 03/16/24 15:41 36.7 C 64 19 95/51 L 03/16/24 14:05 78 20 03/16/24 11:17 36.6 C 68 22 120/69 03/16/24 08:00 64 03/16/24 08:00 03/16/24 07:20 36.5 C 70 20 116/85 03/16/24 07:12 103 H 20 03/16/24 04:43 72 03/16/24 04:30 117/78 Pulse Ox O2 Del Method 03/16/24 15:41 93 Room Air 03/16/24 14:05 94 Room Air 03/16/24 11:17 94 Room Air 03/16/24 08:00 03/16/24 08:00 Room Air 03/16/24 07:20 95 Nasal Cannula 03/16/24 07:12 96 Room Air 03/16/24 04:43 03/16/24 04:30 Laboratory Results Short CBC 03/16/24 Range/Units 08:31 WBC 17.01 H (4.8-10.8) K/ul Hgb 12.7 L (14.0-18.0) g/dl Hct 39.3 L (42.0-52.0) % Plt Count 231 (130-400) K/uL BMP 03/16/24 08:31 Sodium 132 L Potassium 4.5 Chloride 101 Carbon Dioxide 28 BUN 22 Creatinine 1.02 Glucose 364 H* Calcium 9.5 (3) Hematuria Hematuria type: gross Qualified Code(s): R31.0 - Gross hematuria (5) Syncope Syncope type: unspecified Qualified Code(s): R55 - Syncope and collapse (8) COPD (chronic obstructive pulmonary disease) COPD type: unspecified COPD Qualified Code(s): J44.9 - Chronic obstructive pulmonary disease, unspecified
[2024-03-16] MEDS: diphenhydrAMINE HCL 25 MG/10 ML UDC PO PRN (16:32)
[2024-03-16] MEDS: WARFARIN SOD 3 MG TAB PO SCH (16:33)
[2024-03-16] MEDS: KETOROLAC TROMETHAMINE 15 MG/ML VIAL IV ONE (22:50)
[2024-03-17 07:27] LABS: Hematocrit (blood only) 39.8 % (42.0-52.0); Mean Corpuscular Hemoglobin 26.2 pg (25.0-34.0); Mean Corpuscular Hgb Conc 32.7 g/dL (32.0-36.0); Mean Corpuscular Volume 80.1 fL (80.0-100.0); Mean Platelet Volume 11.7 fL (9.4-12.4); Platelet Count 220 K/uL (130-400); RDW Coefficient of Variation 18.5 % (11.5-14.5); RDW Standard Deviation 52.9 fL (36.4-46.3); Red Blood Count 4.97 M/uL (4.70-6.10); White Blood Count 16.63 K/ul (4.8-10.8)
[2024-03-17 07:56] LABS: INR 1.6 (0.9-1.1); Prothrombin Time 16.8 Seconds (9.0-12.0)
[2024-03-17 08:18] LABS: BUN Creatinine Ratio 24.1 (10-20); Calcium 9.1 mg/dl (8.6-10.3); Creatinine Clr Calc Pharmacy 97.9 ml/min; Est GFR (African American) 63.3 ml/min; Est GFR (Non-African American) 54.6 ml/min; Phosphorus 3.7 mg/dl (2.5-4.9); Potassium 3.6 mmol/L (3.5-5.1)
[2024-03-17] MEDS ORDERED: PHARMACY GLYCEMIC MGMT CONSULT PRN (08:20)
[2024-03-17] MEDS: FERROUS SULFATE 325 MG TAB PO SCH (09:09)
[2024-03-17] MEDS: INSULIN HUMAN NPH SC SCH (09:33)
[2024-03-17] MEDS: SODIUM CHLORIDE 0.9% 500 ML IV ONE (11:14)
--- NOTE | 2024-03-17 13:45 | Pharmacy Report ---
Pharmacy Glycemic Short Note 2 - Date of Service March 17, 2024 - Glycemic Short BSG Results (Last 24 hours): 03/16/24 03/16/24 03/17/24 16:17 20:44 06:29 Glucose 391 H* POC Glucose 314 H* 217 H 03/17/24 03/17/24 03/17/24 07:43 07:45 11:24 Glucose POC Glucose 362 H* 406 H* 366 H* OUTPATIENT ANTIDIABETIC REGIMEN: * Lantus 50 units QPM, aspart TIDM w/steroid use, glipizide 10 mg PO BID, ASSESSMENT: * Consulted this AM for continued hyperglycemia in setting of steroid use. Steroids titrating downward. * [phone] mg/dL yesterday, Fasting 362-409 mg/dL this morning. * BSG remained elevated pre-lunch today however, BSGs taken ~2 hours apart, expect some insulin still active/stacking and therefore will continue w/ current CF * Carb ratio has been tightened similar to previous admission with steroid use * Increased NPH dose to 45 units this morning (0.2 units/kg) with prednisone 40 mg * Will increase basal ~20% this evening PLAN FOR INPATIENT GLYCEMIC CONTROL: * Hold outpatient oral diabetes medications * Basal insulin * Lantus 55 units SQ HS * Bolus insulin * NovoLog per scale ACHS or Q6hrs while NPO * Goal Range: Low 110 mg/dL - High 140 mg/dL * Correction Factor: 12 mg/dL/unit * Nutritional / Prandial insulin per carb ratio of 1 unit per 2.5 grams CHO consumed
--- NOTE | 2024-03-17 16:16 | Hospitalist Progress Note ---
Date of Service March 17, 2024 Assessment & Plan (1) Allergic reaction: (2) Supratherapeutic INR: (3) Hematuria: (4) UTI (urinary tract infection) due to urinary indwelling catheter: (5) Syncope: (6) Hypomagnesemia: (7) Current use of fdc anticoagulation: (8) COPD (chronic obstructive pulmonary disease): (9) 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: (10) Morbid obesity: (11) Tobacco abuse: Plan Allergic reaction Patient had Allergic reaction likely from IV contrast Patient received epinephrine, steroids and nebs in ED Continue Pepcid, Benadryl as needed IV Solu-Medrol transitioned to prednisone Resolved Continue prednisone taper CAUTI Last Lloyd change was during recent admission in December Lloyd catheter changed in ED on presentation Urine culture grew Enterobacter cloacae Continue IV Rocephin>> changed to Levaquin Continue current medications Hematuria In setting of supratherapeutic INR Hematuria resolved Monitor CBC Right knee pain Secondary to fall Ambulatory dysfunction ? Lateral meniscal tear Avascular necrosis of R tibia/femur --Knee X ray:Degenerative changes without evidence of acute injury. --R knee MRI:Highly limited exam due to patient motion. There is possible bucket-handle type tear of the lateral meniscus. Degenerative changes are seen in the medial meniscus without yeimi tear. Serpiginous lesions in the tibia and femur compatible with avascular necrosis. Trace joint effusion. -Fall precautions PT OT: Recommends rehab placement Appreciate orthopedics input: Avoid Knee injection due to uncontrolled blood glucose levels. Likely not a candidate for TKA due to high BMI, medical issues Case management to help with discharge planning Acute kidney injury Cr 1.4 today Avoid nephrotoxic agents as able Hold torsemide for now Hypophosphatemia Replace electrolytes as needed Monitor H/O Recurrent PE Supratherapeutic INR due to Coumadin INR reversed with vitamin K Resumed Coumadin Monitor INR:1.6 today Syncope with Fall Fall precautions PT/OT as able COPD Chronic wheezing Continue nebs, steroids, inhalers Titrate down steroids as able DM II Continue insulin per protocol Monitor BGs Hypomagnesemia replace and monitor Morbid obesity BMI 39.7 Tobacco abuse continues to smoke 1 pack a day Recommended quitting H/o chronic diastolic CHF states he has run out of torsemide euvolemic currently Continue home diuretics BPH with urinary retention continue Flomax and finasteride. GERD continue PPI, Pepcid Chronic pain on buprenorphine, duloxetine, gabapentin, flexeril prn. DVT Px: Coumadin CODE STATUS Full code Admission and Anticipated Discharge Date Admission Date: March 14, 2024 Subjective Patient is seen and examined at bedside Continues to complain of right knee pain Noted rise in creatinine levels Denies any chest pain, nausea, vomiting, abdominal pain No other complaints Discussed with orthopedics today Review of Systems Review of Systems: All systems reviewed & are unremarkable except as noted in Subjective Physical Exam Physical Exam: Physical Exam: Vitals signs as noted above General Appearance:Morbidly Obese, no apparent distress Head: normocephalic, Atraumatic Eyes: normal inspection, EOMI Neck: supple, Trachea midline Respiratory/Chest: Decreased breath sounds, scattered rhonchi, No accessory muscle use Cardiovascular: S1, S2, No murmur Abdomen/GI:Soft, Non tender, Bowel sounds present Extremities/Musculoskeletal:normal inspection, Mild edema, + chronic venous stasis changes, R knee tender Neurologic/Psych:AAOX3, grossly no focal neurological deficits Skin: normal color, warm Results & Data Results & Data Vital Signs (Past 12 Hours) Vital Signs Temp Pulse Pulse Resp BP BP Pulse Ox 03/17/24 14:41 36.7 C 76 18 112/68 94 03/17/24 12:45 16 95 03/17/24 08:00 03/17/24 07:40 36.5 C 71 20 132/69 96 03/17/24 07:15 63 16 96 O2 Del Method 03/17/24 14:41 Room Air 03/17/24 12:45 Room Air 03/17/24 08:00 Room Air 03/17/24 07:40 Room Air 03/17/24 07:15 Room Air Laboratory Results Short CBC 03/17/24 Range/Units 06:29 WBC 16.63 H (4.8-10.8) K/ul Hgb 13.0 L (14.0-18.0) g/dl Hct 39.8 L (42.0-52.0) % Plt Count 220 (130-400) K/uL BMP 03/17/24 06:29 Sodium 134 L Potassium 3.6 Chloride 97 L Carbon Dioxide 32 BUN 35 H Creatinine 1.45 H D Glucose 391 H* Calcium 9.1 (3) Hematuria Hematuria type: gross Qualified Code(s): R31.0 - Gross hematuria (5) Syncope Syncope type: unspecified Qualified Code(s): R55 - Syncope and collapse (8) COPD (chronic obstructive pulmonary disease) COPD type: unspecified COPD Qualified Code(s): J44.9 - Chronic obstructive pulmonary disease, unspecified
[2024-03-17] MEDS: LANTUS PER UNIT CHARGE SC SCH (20:47)
[2024-03-18] MEDS: KETOROLAC TROMETHAMINE 15 MG/ML VIAL IV ONE (00:05)
[2024-03-18] MEDS: ACETAMINOPHEN 1,000 MG/100 ML VIAL IV STA (00:28)
[2024-03-18 07:16] LABS: Hematocrit (blood only) 39.7 % (42.0-52.0); Hemoglobin 12.7 g/dl (14.0-18.0); Mean Corpuscular Hemoglobin 25.6 pg (25.0-34.0); Mean Platelet Volume 11.2 fL (9.4-12.4); Platelet Count 224 K/uL (130-400); RDW Coefficient of Variation 18.4 % (11.5-14.5); RDW Standard Deviation 53.1 fL (36.4-46.3); Red Blood Count 4.96 M/uL (4.70-6.10); White Blood Count 18.43 K/ul (4.8-10.8)
[2024-03-18 07:51] LABS: Calcium 8.6 mg/dl (8.6-10.3); Potassium 3.5 mmol/L (3.5-5.1)
[2024-03-18 07:57] LABS: BUN Creatinine Ratio 28.3 (10-20); Creatinine Clr Calc Pharmacy 102.9 ml/min; Est GFR (African American) 67.2 ml/min; Phosphorus 4.2 mg/dl (2.5-4.9)
[2024-03-18 08:16] LABS: INR 1.6 (0.9-1.1); Prothrombin Time 16.8 Seconds (9.0-12.0)
[2024-03-18] MEDS: predniSONE 10 MG TABLET PO SCH (08:55)
[2024-03-18] MEDS: DOCUSATE SODIUM 100 MG CAP PO PRN (09:23)
[2024-03-18] MEDS: ACETAMINOPHEN 1,000 MG/100 ML VIAL IV PRN (09:23)
--- NOTE | 2024-03-18 10:14 | Communication Note ---
Date of Service: March 18, 2024 Stop by to see the patient this morning who has no improvement in his right knee. Patient still unable to ambulate secondary to pain. Range of motion is limited. X-rays and MRI reviewed with Dr. Obregon today. With the question of the AVN in the distal femur and tibia, concerns arise for further AVN in the right lower extremity. Plans at this time will be to order a full-length femur films as well as obtain MRI of the femur and tibia to make sure this is not ongoing in other places in the right lower extremity. Although patient was having difficulty ambulating secondary to a broken foot, a good majority of his knee pain began after his fall that occurred in the recent past. He states that with his ambulation with his broken foot, he began having knee pain prior to his fall. Will obtain the above-noted studies. Concern for osteomyelitis, avascular necrosis, oncological etiologies?
--- NOTE | 2024-03-18 11:45 | XRay Report ---
XR femur RT 2V routine CLINICAL HISTORY: Lytic lesion. COMPARISON: Right knee radiographs March 14, 2024. MRI of the right knee March 16, 2024. FINDINGS: There are no fractures within the right femur. No suspicious osseous lesions are identifie d by radiography. Subtle subchondral sclerosis within the right femoral head corresponds to avascular necrosis on CT of March 14, 2024. The foci of serpiginous signal abnormality within the distal right femur on MRI of March 16, 2024 are not well visualized on this exam. These favor bone infarcts. IMPRESSION: 1. No fractures within the right femur. 2. Subtle subchondral sclerosis within the right femoral head consistent with avascular necrosis. 3. Distal right femoral bone infarcts/foci of avascular necrosis on MRI of March 16, 2024 not well-vis ualized by radiography. ACT 112: Negative or not required by law. Electronically signed by: Evelio Corbin M.D. 03/18/2024 11:43 AM
--- NOTE | 2024-03-18 11:47 | XRay Report ---
XR tibia fibula RT 2V CLINICAL HISTORY: Lytic lesion. COMPARISON: MRI of the right knee and right knee radiographs March 16, 2024. Right ankle radiographs M 2022. FINDINGS: There are no fractures within the right tibia or fibula. No lesions are identified by radi ography. The bone infarcts/foci of avascular necrosis within the proximal right tibia on MRI of March 16, 2024 are not evident by radiography. IMPRESSION: 1. No fractures within the right tibia or fibula. No suspicious lytic lesions by radiography. 2. The bone infarcts/foci of avascular necrosis within the proximal right tibia on MRI of March 16 24 are not evident by radiography. ACT 112: Negative or not required by law. Electronically signed by: Evelio Corbin M.D. 03/18/2024 11:46 AM
--- NOTE | 2024-03-18 12:58 | Magnetic Resonance Report ---
MRI OF THE RIGHT FEMUR WITHOUT CONTRAST CLINICAL HISTORY: Lytic lesion. Has loop recorder. Please evaluate. COMPARISON STUDY: Right femur radiographs performed earlier today. MRI of the right knee March 16. CT of the abdomen and pelvis March 14, 2024. TECHNIQUE: Utilizing a 1.5 Meredith magnet and dedicated coil, multiplanar, multiecho imaging of the rig ht femur was performed without intravenous contrast. FINDINGS: There are no fractures within the right femur. No suspicious marrow replacement is present. A 3 cm subchondral serpiginous focus of signal abnormality in the right femoral head represents avas cular necrosis. There is no evidence for articular collapse. A partially visualized serpiginous focus of signal abnormality within the distal metadiaphysis of the right femur is partially imaged. This m easures at least 5 cm and corresponds to an abnormality on MRI of the right knee from March 16, 2024. This represents a bone infarct. There is mild increased T2 signal within the vastus lateralis. No flu id collection is present. There is subcutaneous edema of the lateral right thigh. Avascular necrosis of the left femoral head is noted as well. The right hamstring origin is intact. IMPRESSION: 1. No fractures within the right femur. 2. Increased T2 signal within the vastus lateralis suggestive of a grade I muscle sprain. 3. Avascular necrosis of the bilateral femoral heads without articular collapse. 4. Serpiginous signal abnormality within the distal right femur, partially imaged on this exam. This suggests a bone infarct/focus of avascular necrosis. ACT 112: Negative or not required by law. Electronically signed by: Evelio Corbin M.D. 03/18/2024 12:56 PM
--- NOTE | 2024-03-18 13:34 | Pharmacy Report ---
Pharmacy Glycemic Short Note 2 - Date of Service March 18, 2024 - Glycemic Short BSG Results (Last 24 hours): 03/17/24 03/17/24 03/18/24 16:23 20:27 06:30 Glucose 240 H POC Glucose 256 H 161 H 03/18/24 03/18/24 07:41 12:54 Glucose POC Glucose 225 H 75 OUTPATIENT ANTIDIABETIC REGIMEN: * Lantus 50 units QPM, aspart TIDM w/steroid use, glipizide 10 mg PO BID ASSESSMENT: 03/18/24 * Blood sugar dropped from 225 -> 75mg/dl from breakfast to lunch today with prednisone 30mg PO, decreasing to 20mg starting tomorrow, loosen CR and decrease NPH at this time. * Blood sugar tyler overnight last night 161 -> 240mg/dl - continue Lantus at this time since steroids tapering and low BSG prior to lunch today. 03/17/24 * Consulted this AM for continued hyperglycemia in setting of steroid use. Stero ids titrating downward. * [phone] mg/dL yesterday, Fasting 362-409 mg/dL this morning. * BSG remained elevated pre-lunch today however, BSGs taken ~2 hours apart, expect some insulin still active/stacking and therefore will continue w/ current CF * Carb ratio has been tightened similar to previous admission with steroid use * Increased NPH dose to 45 units this morning (0.2 units/kg) with prednisone 40 mg * Will increase basal ~20% this evening PLAN FOR INPATIENT GLYCEMIC CONTROL: * Hold outpatient oral diabetes medications * Basal insulin * Lantus 55 units SQ HS * NPH 40 units Daily * Bolus insulin * NovoLog per scale ACHS or Q6hrs while NPO * Goal Range: Low 110 mg/dL - High 140 mg/dL * Correction Factor: 12 mg/dL/unit * Nutritional / Prandial insulin per carb ratio of 1 unit per 3 grams CHO consumed
[2024-03-18] MEDS: oxyCODONE HCL IR 5 MG TAB (IMMEDIATE RELEASE) PO PRN (14:13)
--- NOTE | 2024-03-18 15:59 | Hospitalist Progress Note ---
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 Lateral meniscal tear Avascular necrosis of R tibia/femur --Knee X ray:Degenerative changes without evidence of acute injury. --R knee MRI:Highly limited exam due to patient motion. There is possible bucket-handle type tear of the lateral meniscus. Degenerative changes are seen in the medial meniscus without yeimi tear. Serpiginous lesions in the tibia and femur compatible with avascular necrosis. Trace joint effusion. --MRI R femur:No fractures within the right femur. Increased T2 signal within the vastus lateralis suggestive of a grade I muscle sprain. Avascular necrosis of the bilateral femoral heads without articular collapse. Serpiginous signal abnormality within the distal right femur, partially imaged on this exam. This suggests a bone infarct/focus of avascular necrosis. --R leg X ray:No fractures within the right tibia or fibula. No suspicious lytic lesions by radiography. The bone infarcts/foci of avascular necrosis within the proximal right tibia on MRI of March 16, 2024 are not evident by radiography. --MRI R leg pending -Fall precautions PT OT: Recommends rehab placement Appreciate orthopedics input Case management to help with discharge planning Orthopedics following Hematuria In setting of supratherapeutic INR Hematuria resolved Monitor CBC Acute kidney injury Cr 1.3 today Avoid nephrotoxic agents as able Hold torsemide for now Hypophosphatemia Replace electrolytes as needed Monitor H/O Recurrent PE Supratherapeutic INR due to Coumadin INR reversed with vitamin K on presentation Monitor INR:1.6 today Adjust Coumadin dose as needed Syncope with Fall Fall precautions PT/OT as able COPD Chronic wheezing Continue nebs, steroids, inhalers Titrate down steroids as able DM II Continue insulin per protocol Monitor BGs Hypomagnesemia replace and monitor Morbid obesity BMI 39.7 Tobacco abuse continues to smoke 1 pack a day Recommended quitting H/o chronic diastolic CHF states he has run out of torsemide euvolemic currently Continue home diuretics BPH with urinary retention continue Flomax and finasteride. GERD continue PPI, Pepcid Chronic pain on buprenorphine, duloxetine, gabapentin, Flexeril prn. DVT Px: Coumadin CODE STATUS Full code Admission and Anticipated Discharge Date Admission Date: March 14, 2024 Subjective Patient is seen and examined at bedside Reports right knee pain associated with difficulty ambulating Also reports constipation Discussed with orthopedics today Denies any chest pain, nausea, vomiting, abdominal pain Review of Systems Review of Systems: All systems reviewed & are unremarkable except as noted in Subjective Physical Exam Physical Exam: Physical Exam: Vitals signs as noted above General Appearance:Morbidly Obese, no apparent distress Head: normocephalic, Atraumatic Eyes: normal inspection, EOMI Neck: supple, Trachea midline Respiratory/Chest: Decreased breath sounds, scattered rhonchi, No accessory muscle use Cardiovascular: S1, S2, No murmur Abdomen/GI:Soft, Non tender, Bowel sounds present Extremities/Musculoskeletal:normal inspection, Mild edema, + chronic venous stasis changes, R knee tender Neurologic/Psych:AAOX3, grossly no focal neurological deficits Skin: normal color, warm Results & Data Results & Data Vital Signs (Past 12 Hours) Vital Signs Temp Pulse Resp BP Pulse Ox O2 Del Method O2 Flow Rate 03/18/24 15:28 36.5 C 77 18 116/71 96 Room Air 03/18/24 15:06 Room Air 03/18/24 07:43 36.4 C L 60 18 113/72 96 Room Air 03/18/24 07:15 78 16 100 Nasal Cannula 4 Laboratory Results Short CBC 03/18/24 Range/Units 06:30 WBC 18.43 H (4.8-10.8) K/ul Hgb 12.7 L (14.0-18.0) g/dl Hct 39.7 L (42.0-52.0) % Plt Count 224 (130-400) K/uL BMP 03/18/24 06:30 Sodium 137 Potassium 3.5 Chloride 98 Carbon Dioxide 31 BUN 39 H Creatinine 1.38 Glucose 240 H Calcium 8.6 (3) Hematuria Hematuria type: gross Qualified Code(s): R31.0 - Gross hematuria (5) Syncope Syncope type: unspecified Qualified Code(s): R55 - Syncope and collapse (8) COPD (chronic obstructive pulmonary disease) COPD type: unspecified COPD Qualified Code(s): J44.9 - Chronic obstructive pulmonary disease, unspecified
[2024-03-18] MEDS: WARFARIN SOD 4 MG TAB PO SCH (17:44)
[2024-03-18] MEDS: NEOMYCIN/POLYMYX/BACITR OINT 15 GM TUBE EXT SCH (18:17)
[2024-03-18] MEDS: DOCUSATE SODIUM 100 MG CAP PO SCH (20:04)
[2024-03-18] MEDS: POLYETHYLENE (MIRALAX) 17 GM PACK PO SCH (20:08)
[2024-03-18] MEDS: LANTUS PER UNIT CHARGE SC SCH (20:56)
[2024-03-19] MEDS: INSULIN ASPART PER UNIT CHARGE SC SCH (00:16)
[2024-03-19 07:21] LABS: BUN Creatinine Ratio 23.2 (10-20); Calcium 9.5 mg/dl (8.6-10.3); Creatinine Clr Calc Pharmacy 143.4 ml/min; Est GFR (African American) 100.4 ml/min; Est GFR (Non-African American) 86.6 ml/min; Potassium 3.2 mmol/L (3.5-5.1)
[2024-03-19 07:33] LABS: INR 1.6 (0.9-1.1); Prothrombin Time 16.2 Seconds (9.0-12.0)
[2024-03-19] MEDS: predniSONE 20 MG TAB PO SCH (08:36)
[2024-03-19] MEDS: INSULIN HUMAN NPH SC SCH (09:03)
[2024-03-19] MEDS: POTASSIUM CHLORIDE CRTAB 20 MEQ TABCR PO ONE (09:41)
[2024-03-19] MEDS ORDERED: bisacodyL 10 MG SUPP PR PRN (11:32)
--- NOTE | 2024-03-19 12:43 | XRay Report ---
KUB CLINICAL HISTORY: Constipation. COMPARISON STUDY: CT of the abdomen and pelvis March 14, 2024. FINDINGS: This exam is compromised by suboptimal hydration. Bowel gas pattern is grossly normal. Mode rate to large amount of stool within the colon and rectum has increased since CT of March 14, 2024. IMPRESSION: 1. Increase in a moderate to large amount of stool within the colon and rectum. 2. No definite evidence for a bowel obstruction. Exam compromised given suboptimal penetration relate d to portable technique. ACT 112: Negative or not required by law. Electronically signed by: Evelio Corbin M.D. 03/19/2024 12:42 PM
--- NOTE | 2024-03-19 13:50 | Hospitalist Progress Note ---
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 Lateral meniscal tear Avascular necrosis of R tibia/femur --Knee X ray:Degenerative changes without evidence of acute injury. --R knee MRI:Highly limited exam due to patient motion. There is possible bucket-handle type tear of the lateral meniscus. Degenerative changes are seen in the medial meniscus without yeimi tear. Serpiginous lesions in the tibia and femur compatible with avascular necrosis. Trace joint effusion. --MRI R femur:No fractures within the right femur. Increased T2 signal within the vastus lateralis suggestive of a grade I muscle sprain. Avascular necrosis of the bilateral femoral heads without articular collapse. Serpiginous signal abnormality within the distal right femur, partially imaged on this exam. This suggests a bone infarct/focus of avascular necrosis. --R leg X ray:No fractures within the right tibia or fibula. No suspicious lytic lesions by radiography. The bone infarcts/foci of avascular necrosis within the proximal right tibia on MRI of March 16, 2024 are not evident by radiography. --MRI R leg pending -Fall precautions PT OT: Recommends rehab placement Appreciate orthopedics input Case management to help with discharge planning Constipation --KUB no definite evidence of bowel obstruction Continue bowel regimen Hematuria In setting of supratherapeutic INR Hematuria resolved Monitor CBC Acute kidney injury Resolved Avoid nephrotoxic agents as able Monitor renal function Hypophosphatemia Replace electrolytes as needed Monitor H/O Recurrent PE Supratherapeutic INR due to Coumadin INR reversed with vitamin K on presentation Monitor INR:1.6 today Adjust Coumadin dose as needed Increased Coumadin to 5 mg today Syncope with Fall Fall precautions PT/OT as able COPD Chronic wheezing Continue nebs, steroids, inhalers Titrate down steroids as able DM II Continue insulin per protocol Monitor BGs Hypomagnesemia replace and monitor Morbid obesity BMI 39.7 Tobacco abuse continues to smoke 1 pack a day Recommended quitting H/o chronic diastolic CHF states he has run out of torsemide euvolemic currently Resume torsemide in 1-2 days BPH with urinary retention continue Flomax and finasteride. GERD continue PPI, Pepcid Chronic pain on buprenorphine, duloxetine, gabapentin, Flexeril prn. DVT Px: Coumadin CODE STATUS Full code Admission and Anticipated Discharge Date Admission Date: March 14, 2024 Subjective Patient is seen and examined at bedside Reports constipation Knee pain is controlled Denies any chest pain, nausea, vomiting, abdominal pain Saturating well on room air Review of Systems Review of Systems: All systems reviewed & are unremarkable except as noted in Subjective Physical Exam Physical Exam: Physical Exam: Vitals signs as noted above General Appearance:Morbidly Obese, no apparent distress Head: normocephalic, Atraumatic Eyes: normal inspection, EOMI Neck: supple, Trachea midline Respiratory/Chest: Decreased breath sounds, scattered rhonchi, No accessory muscle use Cardiovascular: S1, S2, No murmur Abdomen/GI:Soft, Non tender, Bowel sounds present Extremities/Musculoskeletal:normal inspection, Mild edema, + chronic venous stasis changes, R knee tender Neurologic/Psych:AAOX3, grossly no focal neurological deficits Skin: normal color, warm Results & Data Results & Data Vital Signs (Past 12 Hours) Vital Signs Temp Pulse Resp BP Pulse Ox O2 Del Method 03/19/24 09:50 Room Air 03/19/24 07:30 36.4 C L 61 18 131/83 96 Room Air 03/19/24 06:52 82 18 98 Room Air Laboratory Results [facility] 03/19/24 06:32 Sodium 138 Potassium 3.2 L Chloride 101 Carbon Dioxide 32 BUN 23 Creatinine 0.99 D Glucose 186 H Calcium 9.5 (3) Hematuria Hematuria type: gross Qualified Code(s): R31.0 - Gross hematuria (5) Syncope Syncope type: unspecified Qualified Code(s): R55 - Syncope and collapse (8) COPD (chronic obstructive pulmonary disease) COPD type: unspecified COPD Qualified Code(s): J44.9 - Chronic obstructive pulmonary disease, unspecified
--- NOTE | 2024-03-19 15:35 | Magnetic Resonance Report ---
MRI OF THE RIGHT LOWER LEG WITHOUT CONTRAST CLINICAL HISTORY: Lytic lesion. Right leg pain following injury. COMPARISON STUDY: Right tibia and fibula radiographs March 18, 2024. MRI of the right knee March 16. MRI of the right foot May 04, 2021. TECHNIQUE: Utilizing a 1.5 Meredith magnet and dedicated coil, multiplanar, multiecho imaging of the rig lower leg was performed without intravenous contrast. FINDINGS: Multifocal serpiginous signal abnormality within the proximal and distal aspects of the rig ht tibia represents bone infarcts/foci of avascular necrosis. The distal right tibial foci of infarct ion are new since MRI of May 04, 2021. Bone infarcts within the distal right fibular also present. There are no fractures within the right tibia or fibula. No suspicious lesions are identified by MRI . Mild subcutaneous edema of the right lower leg is present. There are no fluid collections. There is mild increased T2 signal within the musculature of the posterior compartment of the right lower leg. No associated fluid collections are present. The distal Achilles is suboptimally assessed on this ex am but appears intact. The anterior lateral compartment musculature is unremarkable. IMPRESSION: 1. Multifocal serpiginous signal abnormality within the right tibia and fibula, as described above. T hese are consistent with bone infarcts/foci of avascular necrosis. 2. No fractures within the right tibia or fibula. 3. Nonspecific mild increased T2 signal within the posterior compartment musculature of the right low er leg. No associated fluid collections. 4. Mild subcutaneous edema of the right lower leg. ACT 112: Negative or not required by law. Electronically signed by: Evelio Corbin M.D. 03/19/2024 3:32 PM
[2024-03-19] MEDS: WARFARIN SOD 5 MG TAB PO SCH (16:29)
[2024-03-19] MEDS: SENNA 8.6 MG TAB PO SCH (19:57)
[2024-03-20] MEDS: COUGH DROP (SUGAR FREE) LOZ 24 LOZ/1 BOX BUCCAL PRN (06:25)
[2024-03-20 06:30] LABS: Hematocrit (blood only) 37.1 % (42.0-52.0); Hemoglobin 11.7 g/dl (14.0-18.0); Mean Corpuscular Hemoglobin 25.9 pg (25.0-34.0); Mean Corpuscular Hgb Conc 31.5 g/dL (32.0-36.0); Mean Corpuscular Volume 82.1 fL (80.0-100.0); Mean Platelet Volume 11.4 fL (9.4-12.4); Platelet Count 226 K/uL (130-400); RDW Coefficient of Variation 18.6 % (11.5-14.5); RDW Standard Deviation 55.5 fL (36.4-46.3); Red Blood Count 4.52 M/uL (4.70-6.10); White Blood Count 15.63 K/ul (4.8-10.8)
[2024-03-20 07:29] LABS: Calcium 8.7 mg/dl (8.6-10.3); Potassium 4.2 mmol/L (3.5-5.1)
[2024-03-20 07:36] LABS: BUN Creatinine Ratio 20.2 (10-20); Creatinine Clr Calc Pharmacy 136.5 ml/min; Est GFR (African American) 94.6 ml/min; Est GFR (Non-African American) 81.6 ml/min
[2024-03-20 07:41] LABS: INR 1.5 (0.9-1.1); Prothrombin Time 15.4 Seconds (9.0-12.0)
--- NOTE | 2024-03-20 08:21 | Pharmacy Report ---
Pharmacy Glycemic Short Note 2 - Date of Service March 20, 2024 - Glycemic Short BSG Results (Last 24 hours): 03/19/24 03/19/24 03/19/24 11:30 16:35 20:15 Glucose POC Glucose 142 H 199 H 206 H 03/20/24 03/20/24 05:38 07:39 Glucose 313 H* POC Glucose 232 H OUTPATIENT ANTIDIABETIC REGIMEN: * Lantus 50 units QPM, aspart TIDM w/steroid use, glipizide 10 mg PO BID HbA1c: 8.6% (11/23/23) ASSESSMENT: 03/20/24: * Last dose of prednisone yesterday morning, no ongoing steroids at this time * Blood sugars elevated yesterday and this morning, but per RN, patient ate ice cream overnight * Will d/c NPH and empirically loosen Novolog this AM in light of steroid discontinuation * Will likely reduce basal insulin as well 03/18/24 * Blood sugar dropped from 225 -> 75mg/dl from breakfast to lunch today with prednisone 30mg PO, decreasing to 20mg starting tomorrow, loosen CR and decrease NPH at this time. * Blood sugar tyler overnight last night 161 -> 240mg/dl - continue Lantus at this time since steroids tapering and low BSG prior to lunch today. 03/17/24 * Consulted this AM for continued hyperglycemia in setting of steroid use. Steroids titrating downward. * [phone] mg/dL yesterday, Fasting 362-409 mg/dL this morning. * BSG remained elevated pre-lunch today however, BSGs taken ~2 hours apart, expect some insulin still active/stacking and therefore will continue w/ current CF * Carb ratio has been tightened similar to previous admission with steroid use * Increased NPH dose to 45 units this morning (0.2 units/kg) with prednisone 40 mg * Will increase basal ~20% this evening PLAN FOR INPATIENT GLYCEMIC CONTROL: * Hold outpatient oral diabetes medications * Basal insulin * Lantus 40 units SC HS * D/C NPH * Bolus insulin - loosen * NovoLog per scale ACHS or Q6hrs while NPO * Goal Range: Low 110 mg/dL - High 140 mg/dL * Correction Factor: 20 mg/dL/unit * Nutritional / Prandial insulin per carb ratio of 1 unit per 6 grams CHO consumed
--- NOTE | 2024-03-20 13:17 | Hospitalist Progress Note ---
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: (8) COPD (chronic obstructive pulmonary disease): (9) 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: (10) Morbid obesity: (11) Tobacco abuse: Plan Allergic reaction Patient had Allergic reaction likely from IV contrast Patient received epinephrine, steroids and nebs in ED Continue Pepcid, Benadryl as needed IV Solu-Medrol transitioned to prednisone Completed prednisone taper course Resolved CAUTI Last Lloyd change was during recent admission in December Lloyd catheter changed in ED on presentation Urine culture grew Enterobacter cloacae Continue IV Rocephin>> changed to Levaquin Continue Levaquin to complete the course Leukocytosis likely secondary to prednisone use WBC count trending down Clinically doing better, afebrile Right knee pain Secondary to fall Ambulatory dysfunction ? Lateral meniscal tear Avascular necrosis of R tibia/femur --Knee X ray:Degenerative changes without evidence of acute injury. --R knee MRI:Highly limited exam due to patient motion. There is possible bucket-handle type tear of the lateral meniscus. Degenerative changes are seen in the medial meniscus without yeimi tear. Serpiginous lesions in the tibia and femur compatible with avascular necrosis. Trace joint effusion. --MRI R femur:No fractures within the right femur. Increased T2 signal within the vastus lateralis suggestive of a grade I muscle sprain. Avascular necrosis of the bilateral femoral heads without articular collapse. Serpiginous signal abnormality within the distal right femur, partially imaged on this exam. This suggests a bone infarct/focus of avascular necrosis. --R leg X ray:No fractures within the right tibia or fibula. No suspicious lytic lesions by radiography. The bone infarcts/foci of avascular necrosis within the proximal right tibia on MRI of March 16, 2024 are not evident by radiography. --MRI R leg:Multifocal serpiginous signal abnormality within the right tibia and fibula, as described above. These are consistent with bone infarcts/foci of avascular necrosis. No fractures within the right tibia or fibula. Nonspecific mild increased T2 signal within the posterior compartment musculature of the right lower leg. No associated fluid collections. Mild subcutaneous edema of the right lower leg. -Fall precautions PT OT: Recommends rehab placement Appreciate orthopedics input Case management to help with discharge planning Patient still complains to have difficulty ambulating Constipation --KUB no definite evidence of bowel obstruction Continue bowel regimen And bowel movement today Hematuria In setting of supratherapeutic INR Hematuria resolved Monitor CBC Acute kidney injury Resolved Avoid nephrotoxic agents as able Monitor renal function Hypophosphatemia Replace electrolytes as needed Monitor H/O Recurrent PE Supratherapeutic INR due to Coumadin INR reversed with vitamin K on presentation Monitor INR:1.5 today Adjust Coumadin dose as needed Syncope with Fall Fall precautions PT/OT as able COPD Chronic wheezing Continue nebs, steroids, inhalers Titrate down steroids as able DM II Continue insulin per protocol Monitor BGs Hypomagnesemia replace and monitor Morbid obesity BMI 39.7 Tobacco abuse continues to smoke 1 pack a day Recommended quitting H/o chronic diastolic CHF states he has run out of torsemide euvolemic currently Continue home torsemide, Aldactone BPH with urinary retention continue Flomax and finasteride. GERD continue PPI, Pepcid Chronic pain on buprenorphine, duloxetine, gabapentin, Flexeril prn. DVT Px: Coumadin CODE STATUS Full code Admission and Anticipated Discharge Date Admission Date: March 14, 2024 Subjective Patient is seen and examined at bedside States having poor sleep overnight secondary to right knee pain Had bowel movement today No other complaints Denies any chest pain, dyspnea, nausea, vomiting, abdominal pain Review of Systems Review of Systems: All systems reviewed & are unremarkable except as noted in Subjective Physical Exam Physical Exam: Physical Exam: Vitals signs as noted above General Appearance:Morbidly Obese, no apparent distress Head: normocephalic, Atraumatic Eyes: normal inspection, EOMI Neck: supple, Trachea midline Respiratory/Chest: Decreased breath sounds, scattered rhonchi, No accessory muscle use Cardiovascular: S1, S2, No murmur Abdomen/GI:Soft, Non tender, Bowel sounds present Extremities/Musculoskeletal:normal inspection, Mild edema, + chronic venous stasis changes, R knee tender Neurologic/Psych:AAOX3, grossly no focal neurological deficits Skin: normal color, warm Results & Data Results & Data Vital Signs (Past 12 Hours) Vital Signs Temp Pulse Resp BP Pulse Ox O2 Del Method 03/20/24 08:00 Room Air 07/01/24 07:28 36.6 C 72 16 137/79 96 Room Air 03/20/24 07:02 78 18 98 Room Air Laboratory Results Short CBC 03/20/24 Range/Units 05:38 WBC 15.63 H (4.8-10.8) K/ul Hgb 11.7 L (14.0-18.0) g/dl Hct 37.1 L (42.0-52.0) % Plt Count 226 (130-400) K/uL BMP 03/20/24 05:38 Sodium 137 Potassium 4.2 D Chloride 102 Carbon Dioxide 31 BUN 21 Creatinine 1.04 Glucose 313 H* Calcium 8.7 (3) Hematuria Hematuria type: gross Qualified Code(s): R31.0 - Gross hematuria (5) Syncope Syncope type: unspecified Qualified Code(s): R55 - Syncope and collapse (8) COPD (chronic obstructive pulmonary disease) COPD type: unspecified COPD Qualified Code(s): J44.9 - Chronic obstructive pu lmonary disease, unspecified
--- NOTE | 2024-03-20 13:40 | Communication Note ---
Date of Service: March 20, 2024 Patient seen today to discuss his current situation. We were considering right knee injection. Dr. Amaro had gone over all of his radiological studies. He noted medial and lateral meniscal tears along with some bone infarcts of the femur and tibia. Possible small area of avascular necrosis in the medial femoral condyle and moderate osteoarthritis of the posterior medial femoral condyle. He also noted bilateral hip avascular necrosis stage I-II without collapse and DJD. With the patient's BMI and comorbidities, as well as concurrent running white counts with his UTI he was initially felt to be too high risk with question of unresolved infection possibly ongoing. Dr. Munroe felt that he would not do any surgery at this point in time which was discussed that could be either a arthroscopy versus the possible need of a total knee arthroplasty down the road with worsening AVN. Patient currently would like a more definitive treatment that is surgical. currently his white count is coming down. I spoke to Dr. Wright today who feels that his white count is more secondary to his steroid use rather than infection. Patient does have a UTI of Enterobacter that has been treated since 03/14/2024. Dr. Wright said that he would note this in his progress note that he feels that there is no ongoing infection. When discussing his injection, we discussed that if there was eventuality of a total knee prosthesis in his near future, he would have to wait at least 3 months after his injection to have this done for risk of infection or complications with the knee. Patient at this time was a bit adamant to have the injection. We discussed this in detail and at this point the patient would like a second opinion to see if there are any other options Dr. Amaro feels that with the patient's BMI and other comorbidities, that he would be better suited to have any surgeries performed at a tertiary facility and that he himself would not recommend surgery at this time. In the interim, the patient states that he was having some instability when getting up along with the pain he is having with weightbearing. We will go ahead and consult orthotics for a hinged knee brace to be fitted to help with stability when he is out of bed. I will also discuss with Dr. Wright to place a consult in for one of the other orthopedic groups here for second opinion of his right knee. Currently we will hold any injection at this time.
[2024-03-20] MEDS: oxyCODONE HCL IR 5 MG TAB (IMMEDIATE RELEASE) PO PRN (14:54)
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
[2024-03-20] MEDS: LANTUS PER UNIT CHARGE SC SCH (21:12)
[2024-03-21 06:56] LABS: INR 1.3 (0.9-1.1); Prothrombin Time 13.5 Seconds (9.0-12.0)
[2024-03-21 07:49] LABS: Calcium 8.6 mg/dl (8.6-10.3); Potassium 3.6 mmol/L (3.5-5.1)
[2024-03-21 07:55] LABS: BUN Creatinine Ratio 27.3 (10-20); Creatinine Clr Calc Pharmacy 117.3 ml/min; Est GFR (African American) 78.7 ml/min; Est GFR (Non-African American) 67.9 ml/min
[2024-03-21] MEDS: ACETAMINOPHEN 1,000 MG/100 ML VIAL IV PRN (12:29)
[2024-03-21] MEDS: HEPARIN SOD 5,000 UNIT/0.5 ML VIAL SQ SCH (14:47)
[2024-03-21] MEDS: WARFARIN SOD 6 MG TAB PO SCH (15:37)
--- NOTE | 2024-03-21 16:04 | Hospitalist Progress Note ---
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: (10) Morbid obesity: (11) Tobacco abuse: Plan Allergic reaction Patient had Allergic reaction likely from IV contrast Patient received epinephrine, steroids and nebs in ED Continue Pepcid, Benadryl as needed IV Solu-Medrol transitioned to prednisone Completed prednisone taper course Resolved CAUTI Last Lloyd change was during recent admission in December Lloyd catheter changed in ED on presentation Urine culture grew Enterobacter cloacae Continue IV Rocephin>> changed to Levaquin Continue Levaquin to complete the course Leukocytosis likely secondary to prednisone use Continue Levaquin to complete the course Right knee pain Secondary to fall Ambulatory dysfunction ? Lateral meniscal tear Avascular necrosis of R tibia/femur --Knee X ray:Degenerative changes without evidence of acute injury. --R knee MRI:Highly limited exam due to patient motion. There is possible bucket-handle type tear of the lateral meniscus. Degenerative changes are seen in the medial meniscus without yeimi tear. Serpiginous lesions in the tibia and femur compatible with avascular necrosis. Trace joint effusion. --MRI R femur:No fractures within the right femur. Increased T2 signal within the vastus lateralis suggestive of a grade I muscle sprain. Avascular necrosis of the bilateral femoral heads without articular collapse. Serpiginous signal abnormality within the distal right femur, partially imaged on this exam. This suggests a bone infarct/focus of avascular necrosis. --R leg X ray:No fractures within the right tibia or fibula. No suspicious lytic lesions by radiography. The bone infarcts/foci of avascular necrosis within the proximal right tibia on MRI of March 16, 2024 are not evident by radiography. --MRI R leg:Multifocal serpiginous signal abnormality within the right tibia and fibula, as described above. These are consistent with bone infarcts/foci of avascular necrosis. No fractures within the right tibia or fibula. Nonspecific mild increased T2 signal within the posterior compartment musculature of the right lower leg. No associated fluid collections. Mild subcutaneous edema of the right lower leg. -Fall precautions PT OT: Recommends rehab placement Appreciate orthopedics input Case management to help with discharge planning Continue brace with activity Will wait for final recommendations from orthopedics Constipation --KUB no definite evidence of bowel obstruction Continue bowel regimen Resolved Hematuria In setting of supratherapeutic INR Hematuria resolved Monitor CBC Acute kidney injury Resolved Avoid nephrotoxic agents as able Monitor renal function Hypophosphatemia Replace electrolytes as needed Monitor H/O Recurrent PE Supratherapeutic INR due to Coumadin INR reversed with vitamin K on presentation Monitor INR:1.3 today Adjust Coumadin dose as needed Increase Coumadin to 6 mg today Also on SQ heparin till INR therapeutic Syncope with Fall Fall precautions PT/OT as able COPD Chronic wheezing Continue nebs, steroids, inhalers Titrate down steroids as able DM II Continue insulin per protocol Monitor BGs Hypomagnesemia replace and monitor Morbid obesity BMI 39.7 Tobacco abuse continues to smoke 1 pack a day Recommended quitting H/o chronic diastolic CHF states he has run out of torsemide euvolemic currently Continue home torsemide, Aldactone Patient refuses to be on fluid restriction. Aware of risks. BPH with urinary retention continue Flomax and finasteride. GERD continue PPI, Pepcid Chronic pain on buprenorphine, duloxetine, gabapentin, Flexeril prn. DVT Px: Coumadin Will discontinue SQ heparin when INR is therapeutic CODE STATUS Full code Disposition To be determined Admission and Anticipated Discharge Date Admission Date: March 14, 2024 Subjective Patient is seen and examined at bedside Continues to have right knee pain Requests removal of fluid restriction No new complaints otherwise Discussed with orthopedics today Denies any chest pain, dyspnea, nausea, vomiting, abdominal pain Review of Systems Review of Systems: All systems reviewed & are unremarkable except as noted in Subjective Physical Exam Physical Exam: Physical Exam: Vitals signs as noted above General Appearance:Morbidly Obese, no apparent distress Head: normocephalic, Atraumatic Eyes: normal inspection, EOMI Neck: supple, Trachea midline Respiratory/Chest: Decreased breath sounds, scattered rhonchi, No accessory muscle use Cardiovascular: S1, S2, No murmur Abdomen/GI:Soft, Non tender, Bowel sounds present Extremities/Musculoskeletal:normal inspection, Mild edema, + chronic venous stasis changes, R knee tender Neurologic/Psych:AAOX3, grossly no focal neurological deficits Skin: normal color, warm Results & Data Results & Data Vital Signs (Past 12 Hours) Vital Signs Temp Pulse Resp BP Pulse Ox O2 Del Method O2 Flow Rate 03/21/24 14:51 36.9 C 86 16 113/69 90 Room Air 03/21/24 13:30 79 18 93 Room Air 03/21/24 08:00 Room Air 03/21/24 07:15 17 98 Nasal Cannula 2 03/21/24 07:11 36.2 C L 68 16 122/76 98 Nasal Cannula 3 Laboratory Results [facility] 03/21/24 05:39 Sodium 139 Potassium 3.6 Chloride 98 Carbon Dioxide 40 H BUN 33 H Creatinine 1.21 Glucose 153 H Calcium 8.6 (3) Hematuria Hematuria type: gross Qualified Code(s): R31.0 - Gross hematuria (5) Syncope Syncope type: unspecified Qualified Code(s): R55 - Syncope and collapse (8) COPD (chronic obstructive pulmonary disease) COPD type: unspecified COPD Qualified Code(s): J44.9 - Chronic obstructive pulmonary disease, unspecified
[2024-03-22 06:25] LABS: Hematocrit (blood only) 37.9 % (42.0-52.0); Mean Corpuscular Hgb Conc 31.7 g/dL (32.0-36.0); Mean Platelet Volume 11.3 fL (9.4-12.4); Platelet Count 243 K/uL (130-400); RDW Coefficient of Variation 19.2 % (11.5-14.5); RDW Standard Deviation 56.6 fL (36.4-46.3); Red Blood Count 4.62 M/uL (4.70-6.10); White Blood Count 14.79 K/ul (4.8-10.8)
[2024-03-22 06:43] LABS: BUN Creatinine Ratio 26.6 (10-20); Calcium 8.8 mg/dl (8.6-10.3); Creatinine Clr Calc Pharmacy 110.9 ml/min; Est GFR (African American) 73.6 ml/min; Est GFR (Non-African American) 63.5 ml/min; Potassium 3.7 mmol/L (3.5-5.1)
[2024-03-22 06:57] LABS: INR 1.1 (0.9-1.1); Prothrombin Time 11.7 Seconds (9.0-12.0)
[2024-03-22] MEDS: ALBUTEROL HFA 8 GM INHALER INH PRN (09:57)
--- NOTE | 2024-03-22 10:06 | Pharmacy Report ---
Pharmacy Glycemic Short Note 2 - Date of Service March 22, 2024 - Glycemic Short BSG Results (Last 24 hours): 03/21/24 03/21/24 03/21/24 11:40 16:26 20:55 Glucose POC Glucose 129 H 141 H 122 H 03/22/24 03/22/24 05:41 07:45 Glucose 191 H POC Glucose 193 H OUTPATIENT ANTIDIABETIC REGIMEN: * Lantus 50 units QPM, aspart TIDM w/steroid use, glipizide 10 mg PO BID HbA1c: 8.6% (11/23/23) ASSESSMENT: 03/22 * BSGs reasonably well controlled over last 24 hrs * No further PO/IV steroids admin or ordered * 89 units SQ insulin admin over last 24 hrs while tolerating a diet * Fasting BSG is elevated this AM. Will not adjust basal at this time however as this is not an established trend. Will follow fasting AM BSGs on current Lantus dose. * Post-prandial BSGs well controlled with current CR/CF - no changes planned today 03/20/24: * Last dose of prednisone yesterday morning, no ongoing steroids at this time * Blood sugars elevated yesterday and this morning, but per RN, patient ate ice cream overnight * Will d/c NPH and empirically loosen Novolog this AM in light of steroid discontinuation * Will likely reduce basal insulin as well 03/18/24 * Blood sugar dropped from 225 -> 75mg/dl from breakfast to lunch today with prednisone 30mg PO, decreasing to 20mg starting tomorrow, loosen CR and decrease NPH at this time. * Blood sugar tyler overnight last night 161 -> 240mg/dl - continue Lantus at thi s time since steroids tapering and low BSG prior to lunch today. 03/17/24 * Consulted this AM for continued hyperglycemia in setting of steroid use. Steroids titrating downward. * [phone] mg/dL yesterday, Fasting 362-409 mg/dL this morning. * BSG remained elevated pre-lunch today however, BSGs taken ~2 hours apart, expect some insulin still active/stacking and therefore will continue w/ cu rrent CF * Carb ratio has been tightened similar to previous admission with steroid use * Increased NPH dose to 45 units this morning (0.2 units/kg) with prednisone 40 mg * Will increase basal ~20% this evening PLAN FOR INPATIENT GLYCEMIC CONTROL: * Hold outpatient oral diabetes medications * Basal insulin * Lantus 40 units SC HS * Bolus insulin - * NovoLog per scale ACHS or Q6hrs while NPO * Goal Range: Low 110 mg/dL - High 140 mg/dL * Correction Factor: 20 mg/dL/unit * Nutritional / Prandial insulin per carb ratio of 1 unit per 6 grams CHO consumed
[2024-03-22] MEDS: oxyCODONE HCL IR 5 MG TAB (IMMEDIATE RELEASE) PO PRN (14:56)
[2024-03-22] MEDS: AMMONIUM LACTATE 12% LOTION 225 GM BTL EXT SCH (15:09)
--- NOTE | 2024-03-22 16:04 | Hospitalist Progress Note ---
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 Milner is a 53 year old gentleman with history of chronic diastolic heart failure (EF 60 to 65%, TTE 2022), history CAD/STEMI as per records, history subdural hematoma/subarachnoid hemorrhage as per records (no operative intervention), hypertension, hyperlipidemia, COPD, recurrent PE on Coumadin, DM 2 insulin requiring, recurrent UTIs secondary to BPH/chronic urinary retention indwelling Fontaine catheter, chronic anemia (baseline hemoglobin 12-13), chronic pain on buprenorphine, drug-seeking behavior as per records, ongoing tobacco abuse who is admitted for management of allergic reaction after CT contrast administration. Patient improved with IV steroids. Course prolonged given pain in right extremity. Ortho was consulted. There was question regarding kneee injection, however declined as it would postpone possible surgical intervention. Surgery would not be pursued at OR given multiple comorbities and high risk for complications; therefore, it was recommended to be performed at a tertiary care center. Discussed with patient that these surgeries are elective and a transfer from inpatient would not be pursued given the elective nature. We discussed his multiple medical conditions and that a trial at rehab with OP follow up is going to be the next necessary steps for patient. Patient agreeable to SNF with plans for dispo Wednesday 65 minutes spent discussing with patient and at bedside. #CAUTI POA Last Fontaine change was during recent admission in December Fontaine catheter changed in ED on presentation Urine culture grew Enterobacter cloacae; initially on CTX Continue Levaquin to complete the course #Hematuria, resolved iso infection and supratherapeutic inr s/p fontaine exchange urine clear on todays exam #Acute on chronic leukocytosis multifactorial, baseline is 11-14, likely exacerbated iso infection/steroids chronic tobacco use likely contributing #Acute on chronic right knee pain s/p mechanical fall #Ambulatory dysfunction #Lateral meniscal tear #Avascular necrosis of R tibia/femur Knee X ray:Degenerative changes without evidence of acute injury. R knee MRI:Highly limited exam due to patient motion. There is possible bucket- handle type tear of the lateral meniscus. Degenerative changes are seen in the medial meniscus without yeimi tear. Serpiginous lesions in the tibia and femur compatible with avascular necrosis. Trace joint effusion. MRI R femur:No fractures within the right femur. Increased T2 signal within the vastus lateralis suggestive of a grade I muscle sprain. Avascular necrosis of the bilateral femoral heads without articular collapse. Serpiginous signal abnormality within the distal right femur, partially imaged on this exam. This suggests a bone infarct/focus of avascular necrosis. R leg X ray:No fractures within the right tibia or fibula. No suspicious lytic lesions by radiography. The bone infarcts/foci of avascular necrosis within the proximal right tibia on MRI of March 16, 2024 are not evident by radiography. MRI R leg:Multifocal serpiginous signal abnormality within the right tibia and fibula, as described above. These are consistent with bone infarcts/foci of avascular necrosis. No fractures within the right tibia or fibula. Nonspecific mild increased T2 signal within the posterior compartment musculature of the right lower leg. No associated fluid collections. Mild subcutaneous edema of the right lower leg. -Fall precautions PT OT: Recommends rehab placement, pending discharge 03/24 Appreciate orthopedics input -elective procedure requires tertiary care -BMI >50, insulin dependence, chronic AC, HF, hx of respiratory arrest Case management to help with discharge planning Continue brace with activity Will wait for final recommendations from orthopedics #Acute kidney injury Resolved Avoid nephrotoxic agents as able Monitor renal function #Hypophosphatemia #Hypomagnesemia Replace electrolytes as needed Monitor #Allergic reaction 2/2 IV contrast, resolved Patient had Allergic reaction likely from IV contrast Patient received epinephrine, steroids and nebs in ED Continue Pepcid, Benadryl as needed IV Solu-Medrol transitioned to prednisone Completed prednisone taper course Resolved #Constipation --KUB no definite evidence of bowel obstruction Continue bowel regimen Resolved #Prior Recurrent PE #Supratherapeutic INR due to Coumadin INR reversed with vitamin K on presentation Monitor INR:1.3 today Adjust Coumadin dose as needed Increase Coumadin to 6 mg today Also on SQ heparin till INR therapeutic #Hx of Syncope with Fall Fall precautions PT/OT as able #COPD Chronic wheezing Continue nebs, steroids, inhalers Titrate down steroids as able #DM II Continue insulin per protocol Monitor BGs #Morbid obesity BMI 53.0 #Tobacco abuse continues to smoke 1 pack a day Recommended quitting #Chronic diastolic CHF states he has run out of torsemide euvolemic currently Continue home torsemide, Aldactone Patient refuses to be on fluid restriction. Aware of risks. #BPH with urinary retention continue Flomax and finasteride. #GERD continue PPI, Pepcid #Chronic pain on buprenorphine, duloxetine, gabapentin, Flexeril prn. DVT Px: Coumadin Will discontinue SQ heparin when INR is therapeutic CODE STATUS Full code Disposition To be determined Admission and Anticipated Discharge Date Admission Date: March 14, 2024 Subjective NAEO Discussed that any procedure would be an elective procedure at this point and does not warrant a transfer He discussed concerns about OP follow up--concerns were addressed and patient agreeable to rehab Physical Exam Constitutional: WD/WN, vitals as above Respiratory: normal respiratory effort, lungs clear to auscultation Cardiovascular: difficult 2/2 habitus Musculoskeletal: right leg in brace Skin: diffuse skin flaking on lower extremities, dusky discoloration Results & Data Results & Data Vital Signs (Past 12 Hours) Vital Signs Temp Pulse Resp BP Pulse Ox O2 Del Method FiO2 03/22/24 15:33 36.8 C 73 20 127/68 92 Room Air 03/22/24 13:13 72 15 94 Room Air 21 03/22/24 08:00 Room Air 03/22/24 07:49 36.5 C 67 16 112/68 96 Room Air 03/22/24 07:31 66 15 98 Room Air 21 Laboratory Results Short CBC 03/22/24 Range/Units 05:41 WBC 14.79 H (4.8-10.8) K/ul Hgb 12.0 L (14.0-18.0) g/dl Hct 37.9 L (42.0-52.0) % Plt Count 243 (130-400) K/uL BMP 03/22/24 05:41 Sodium 138 Potassium 3.7 Chloride 98 Carbon Dioxide 35 H BUN 34 H Creatinine 1.28 Glucose 191 H Calcium 8.8 Medications Administered Home Medications Medication Instructions Recorded Confirmed Last Taken aspirin 81 mg tablet,delayed 81 mg PO QAM 11/17/18 03/14/24 03/13/24 release (Ecotrin Low Strength) nitroglycerin 0.4 mg sublingual 0.4 mg sublingual DIRECTED PRN 12/09/18 03/14/24 11/08/22 tablet (Nitrostat) CHEST PAIN nystatin 100,000 unit/gram topical 1 applic topical TID PRN Skin 12/09/18 03/14/24 01/30/20 powder Irritation polyethylene glycol 3350 17 gram 17 g PO QAM PRN Constipation 12/09/18 03/14/24 07/19/23 oral powder packet (Miralax) finasteride 5 mg tablet 5 mg PO QAM 03/03/19 03/14/24 03/06/24 docusate sodium 100 mg capsule 100 mg PO BID PRN Constipation 08/11/19 03/14/24 07/19/23 folic acid 1 mg tablet 1 mg PO QAM 12/07/19 03/14/24 03/06/24 sennosides 8.6 mg tablet (senna) 8.6 mg PO DAILY PRN Constipation 12/07/19 03/14/24 03/06/24 duloxetine 60 mg capsule,delayed 60 mg PO DAILY 07/05/20 03/14/24 03/13/24 release famotidine 20 mg tablet 20 mg PO DAILY 07/05/20 03/14/24 03/06/24 glipizide 10 mg tablet 10 mg PO BID 01/12/21 03/14/24 03/13/24 ferrous sulfate 325 mg (65 mg 325 mg PO QAM 10/24/21 03/14/24 03/13/24 iron) tablet hydroxyzine HCl 25 mg tablet 25 mg PO QID PRN Anxiety 10/24/21 03/14/24 Unknown urea 20 % topical cream 1 applic topical BID Dry Areas on 10/24/21 03/14/24 03/13/24 (Ureacin-20) Soles and Legs insulin aspart U-100 100 unit/mL 0 sliding scale dose subcut TIDM 04/07/23 03/14/24 03/13/24 (3 mL) subcutaneous pen (Novolog FlexPen U-100 Insulin aspart) buprenorphine HCl 8 mg sublingual See Rx Instructions .Route .COMPLEX 05/04/23 03/14/24 03/13/24 tablet fluticasone propionate 93 2 spray intranasal DAILY 08/22/23 03/14/24 03/13/24 mcg/actuation breath activated aerosol ipratropium 0.5 mg-albuterol 3 mg 3 ml inhalation TID 08/22/23 03/14/24 03/13/24 (2.5 mg base)/3 mL nebulization soln metoprolol succinate 50 mg 75 mg (1.5 x 50 mg) PO BID 30 days 09/26/23 03/14/24 03/13/24 tablet,extended release 24 hr #180 tabs tamsulosin 0.4 mg capsule (Flomax) 0.8 mg (2 x 0.4 mg) PO QAM #180 09/26/23 03/14/24 03/13/24 caps isosorbide dinitrate 30 mg tablet 30 mg PO DAILY #30 tabs 10/11/23 03/14/24 03/13/24 albuterol sulfate 90 mcg/actuation 2 puff inhalation Q4 PRN Dyspnea 11/26/23 03/14/24 Unknown aerosol inhaler 30 days #1 inh budesonide 0.5 mg/2 mL suspension 0.5 mg (2 mL) inhalation Q12H 30 11/26/23 03/14/24 03/06/24 for nebulization days #60 mL cyclobenzaprine 10 mg tablet 10 mg PO BID PRN Muscle Spasm #15 11/26/23 03/14/24 03/06/24 tabs fluticasone 250 mcg-salmeterol 50 1 inh inhalation BID 30 days #1 ea 11/26/23 03/14/24 03/06/24 mcg/dose blistr powdr for inhalation (Advair Diskus) insulin glargine 100 unit/mL 50 unit (0.5 mL) SC HS 30 days #15 11/26/23 03/14/24 03/13/24 subcutaneous solution (Lantus mL U-100 Insulin) omeprazole 20 mg capsule,delayed 20 mg PO DAILYBB 30 days #30 caps 11/26/23 03/14/24 03/06/24 release Lactobacillus acidophilus 1 tab PO DAILY 12/25/23 03/14/24 03/13/24 dextromethorphan-guaifenesin 30 1 tab PO Q12H PRN Cough 12/25/23 03/14/24 Unknown mg-600 mg tablet extended [id number] hr (Mucinex DM) magnesium oxide 400 mg (241.3 mg 400 mg PO QAM 12/25/23 03/14/24 03/06/24 magnesium) tablet potassium chloride 20 mEq 20 meq PO BID 12/25/23 03/14/24 03/13/24 tablet,extended release(part/cryst) spironolactone 25 mg tablet 25 mg PO QAM 12/25/23 03/14/24 03/13/24 torsemide 100 mg tablet 100 mg PO DAILY 12/25/23 03/14/24 03/06/24 gabapentin 800 mg tablet 800 mg PO TID #90 tabs 12/30/23 03/14/24 03/06/24 ondansetron HCl 4 mg tablet 4 mg PO Q8H PRN NAUSEA/VOMITING 12/30/23 03/14/24 03/06/24 #12 tabs atorvastatin 80 mg tablet 80 mg PO QPM 03/14/24 03/14/24 03/13/24 bisacodyl 5 mg tablet 10 mg PO DAILY PRN Constipation 03/14/24 03/14/24 Unknown warfarin 4 mg tablet 2 - 4 mg PO QPM 03/14/24 03/14/24 03/13/24 Active Medications Generic Name Dose Route Start Last Admin Trade Name Freq PRN Reason Stop Dose Admin Albuterol 2 puffs 03/14/24 16:52 03/22/24 09:57 Albuterol Hfa 8 Gm Inhaler INH 04/13/24 16:51 2 puffs Q4 PRN Administration Dyspnea Albuterol 3 ml 03/14/24 19:00 03/22/24 13:12 Albut/Ipratrop 3mg/0.5mg Neb 3 Ml Vial INH 04/13/24 18:59 3 ml TIDR EMPERATRIZ Administration Protocol Aspirin 81 mg 03/15/24 09:00 03/22/24 08:46 Aspirin 81 Mg Ectab PO 04/14/24 08:59 81 mg QAM EMPERATRIZ Administration Atorvastatin Calcium 80 mg 03/15/24 09:00 03/22/24 08:55 Atorvastatin 40 Mg Tab PO 04/14/24 08:59 80 mg QAM EMPERATRIZ Administration Budesonide 0.5 mg 03/14/24 19:00 03/22/24 07:31 Budesonide 0.5 Mg/2 Ml Vial (Pulmicort) INH 04/13/24 18:59 0.5 mg BIDR EMPERATRIZ Administration Buprenorphine HCl 8 mg 03/14/24 21:00 03/22/24 08:42 Buprenorphine Hcl 8 Mg Subl SL 04/13/24 20:59 8 mg BID EMPERATRIZ Administration Buprenorphine HCl 4 mg 03/15/24 14:00 03/22/24 14:54 Buprenorphine Hcl 2 Mg Subl SL 04/14/24 13:59 4 mg DAILY@1400 EMPERATRIZ Administration Cyclobenzaprine HCl 10 mg 03/14/24 16:52 03/22/24 08:43 Cyclobenzaprine Hcl 10 Mg Tab PO 04/13/24 16:51 10 mg BID PRN Administration Muscle Spasm Diclofenac Sodium 2 gm 03/14/24 21:00 03/22/24 14:54 Diclofenac Sod 1% Gel 100 Gm Tube EXT 04/13/24 20:59 2 gm TID EMPERATRIZ Administration Protocol Diphenhydramine HCl 25 mg 03/16/24 15:34 03/16/24 16:32 Diphenhydramine Hcl 25 Mg/10 Ml Udc PO 04/15/24 15:33 25 mg Q6H PRN Administration Allergy Symptoms Docusate Sodium 100 mg 03/18/24 21:00 03/22/24 08:55 Docusate Sodium 100 Mg Cap PO 04/17/24 20:59 100 mg BID EMPERATRIZ Administration Duloxetine HCl 60 mg 03/15/24 09:00 03/22/24 08:57 Duloxetine Hcl 60 Mg Cap PO 04/14/24 08:59 60 mg DAILY EMPERATRIZ Administration Famotidine 20 mg 03/15/24 09:00 03/22/24 08:48 Famotidine 20 Mg Tab PO 04/14/24 08:59 20 mg DAILY EMPERATRIZ Administration Ferrous Sulfate 325 mg 03/17/24 08:00 03/22/24 08:45 Ferrous Sulfate 325 Mg Tab PO 04/16/24 07:59 325 mg DAILY@0800 EMPERATRIZ Administration Finasteride 5 mg 03/15/24 09:00 03/22/24 08:56 Finasteride 5 Mg Tab PO 04/14/24 08:59 5 mg QAM EMPERATRIZ Administration Fluticasone Propionate 2 sprays 03/15/24 09:00 03/22/24 08:55 Fluticasone Propionate Na Spr 16 Gm Btl NA 04/14/24 08:59 2 sprays DAILY EMPERATRIZ Administration Fluticasone/Vilanterol 1 puffs 03/15/24 09:00 03/22/24 08:54 Fluticasone/Vilanterol 200/25mcg 14 Puffs/Inhaler INH 04/14/24 08:59 1 puffs DAILY EMPERATRIZ Administration Gabapentin 800 mg 03/14/24 21:00 03/22/24 08:54 Gabapentin 800 Mg Tab PO 04/13/24 20:59 800 mg TID EMPERATRIZ Administration Guaifenesin 600 mg 03/15/24 10:45 03/22/24 08:54 Guaifenesin 600 Mg Tabcr PO 04/14/24 10:44 600 mg Q12 EMPERATRIZ Administration Heparin Sodium (Porcine) 5,000 units 03/21/24 14:00 03/22/24 14:57 Heparin Sod 5,000 Unit/0.5 Ml Vial SQ 04/20/24 13:59 5,000 units Q8 EMPERATRIZ Administration Acetaminophen 1,000 mg in 100 mls @ 400 mls/hr 03/21/24 11:11 03/22/24 09:57 Ofirmev IV 03/24/24 11:10 Infused Q8H PRN Infusion Moderate Pain (Scale 4, 5, 6) Insulin Aspart 0 units 03/15/24 07:30 03/22/24 12:28 Insulin Aspart Per Unit Charge SC 04/14/24 07:29 16 units ACHS EMPERATRIZ Administration Protocol Insulin Glargine 40 units 03/20/24 21:00 03/21/24 21:43 Lantus Per Unit Charge SC 04/17/24 20:59 40 units HS EMPERATRIZ Administration Isosorbide Dinitrate 30 mg 03/15/24 09:00 03/22/24 08:47 Isosorbide Dinitrate 20 Mg Tab PO 04/14/24 08:59 30 mg DAILY EMPERATRIZ Administration Lactic Acid 1 gm 03/22/24 14:30 03/22/24 15:09 Ammonium Lactate 12% Lotion 225 Gm Btl EXT 04/21/24 14:29 1 gm DAILY EMPERATRIZ Administration Lactobacillus Acidophilus 1 packet 03/15/24 09:00 03/22/24 08:50 Lactobacillus Acidophilus 1 Gm Pack PO 04/14/24 08:59 1 packet DAILY EMPERATRIZ Administration Levofloxacin 750 mg 03/16/24 11:00 03/22/24 12:29 Levofloxacin 750 Mg Tab PO 03/26/24 10:59 750 mg DAILY@1100 EMPERATRIZ Administration Protocol Lidocaine 2 patch 03/14/24 18:00 03/22/24 08:49 Lidocaine 5% 1 Patch TD 04/13/24 17:29 2 patch DAILY EMPERATRIZ Administration Lorazepam 0.5 mg 03/15/24 10:46 03/21/24 15:32 Lorazepam 0.5 Mg Tab PO 04/14/24 10:45 0.5 mg BID PRN Administration Anxiety Magnesium Oxide 400 mg 03/15/24 09:00 03/22/24 08:48 Magnesium Oxide 400 Mg Tab PO 04/14/24 08:59 400 mg QAM EMPERATRIZ Administration Menthol 1 fernie 03/20/24 06:09 03/21/24 15:32 Cough Drop (Sugar Free) Fernie 24 Fernie/1 Box BUCCAL 04/19/24 06:08 1 fernie Q1H PRN Administration Sore Throat Metoprolol Succinate 75 mg 03/14/24 21:00 03/22/24 08:44 Metoprolol Succ 50mg Ext Rel Tab PO 04/13/24 20:59 75 mg BID EMPERATRIZ Administration Miscellaneous 1 each 03/15/24 08:59 03/22/24 08:50 Remove Nicoderm Patch N/A 04/14/24 08:58 1 each DAILY@0859 EMPERATRIZ Administration Miscellaneous 1 each 03/14/24 21:00 03/21/24 21:04 Remove Lidoderm Patch N/A 04/13/24 20:59 1 each DAILY@2100 EMPERATRIZ Administration Neomycin/Polymyxin/Bacitracin 1 appln 03/18/24 17:15 03/22/24 08:56 Neomycin/Polymyx/Bacitr Oint 15 Gm Tube EXT 04/17/24 17:14 1 appln BID EMPERATRIZ Administration Nicotine 1 patch 03/14/24 14:45 03/22/24 08:51 Nicotine 21 Mg/24 Hr Tdsy TD 04/13/24 14:44 1 patch QAM EMPERATRIZ Administration Oxycodone HCl 10 mg 03/22/24 14:23 03/22/24 14:56 Oxycodone Hcl Ir 5 Mg Tab (Immediate Release) PO 04/01/24 13:50 10 mg Q6H PRN Administration Mod-Sev Pain (Scale 4-10) Pantoprazole Sodium 40 mg 03/15/24 06:30 03/22/24 05:29 Pantoprazole 40 Mg Tab PO 04/14/24 06:29 40 mg DAILYBB EMPERATRIZ Administration Polyethylene Glycol 17 gm 03/18/24 21:00 03/22/24 08:53 Polyethylene (Miralax) 17 Gm Pack PO 04/17/24 20:59 17 gm BID EMPERATRIZ Administration Sennosides 8.6 mg 03/19/24 21:00 03/21/24 20:58 Senna 8.6 Mg Tab PO 04/18/24 20:59 8.6 mg HS EMPERATRIZ Administration Spironolactone 25 mg 03/16/24 09:00 03/22/24 08:47 Spironolactone 25 Mg Tab PO 04/15/24 08:59 25 mg QAM EMPERATRIZ Administration Tamsulosin HCl 0.8 mg 03/15/24 09:00 03/22/24 08:53 Tamsulosin Hcl 0.4 Mg Cap PO 04/14/24 08:59 0.8 mg QAM EMPERATRIZ Administration Torsemide 100 mg 03/16/24 09:00 03/22/24 08:46 Torsemide 100 Mg Tab PO 04/15/24 08:59 100 mg DAILY EMPERATRIZ Administration Warfarin Sodium 6 mg 03/21/24 16:00 03/21/24 15:37 Warfarin Sod 6 Mg Tab PO 04/20/24 15:59 6 mg DAILY@1600 EMPERATRIZ Administration (3) Hematuria Hematuria type: gross Qualified Code(s): R31.0 - Gross hematuria (5) Syncope Syncope type: unspecified Qualified Code(s): R55 - Syncope and collapse (8) COPD (chronic obstructive pulmonary disease) COPD type: unspecified COPD Qualified Code(s): J44.9 - Chronic obstructive pulmonary disease, unspecified
--- NOTE | 2024-03-22 17:26 | Orthopedic Progress Note ---
Date of Service March 22, 2024 Assessment & Plan (1) Knee joint injury: Plan: Ongoing right knee pain. His knee pain exceeds that what I would expect from MRI findings which demonstrate osteoarthritis in the knee and medial and lateral degenerative type meniscus tears some extrusion of the medial meniscus. I do not see a obvious large displaced fragment. I do not believe he has a bucket- handle tear. We discussed the injection option again with the patient. I discussed with him that people can improve their symptoms with injection and physical therapy or physical therapy alone can help you with arthritic knee and degenerative meniscus tears. Some risk of osteoarthritis disease progression with arthroscopic surgery and the is currently not a candidate for knee replacement surgery with his obesity and comorbidities. Possibly with the AVN in his hips he could have referred pain to the knee. The MRI findings of the knee with bone infarcts with typically not be a pain generator. The area of possible AVN posterior medial femoral condyle could be. Risks of injection were discussed including infection and elevating blood sugars. His medical physicians believe that his elevated white count is not due to infection and is related to being on steroids. He is going to consider injection possibly we will do this tomorrow morning. He wanted his white cell count checked again to see if there is any movement on that and a downward direction. (2) Osteoarthritis of right knee: Admission and Anticipated Discharge Date Admission Date: March 14, 2024 Subjective Still has ongoing knee pain but he does not pain at rest and the brace is helpful Review of Systems Review of Systems: No fever or chills Physical Exam Physical Exam: Obese right knee and knee brace skin intact venous stasis disease distally. Results & Data Vital Signs (Past 12 Hours) Vital Signs Temp Pulse Resp BP Pulse Ox O2 Del Method FiO2 03/22/24 15:33 36.8 C 73 20 127/68 92 Room Air 03/22/24 13:13 72 15 94 Room Air 21 03/22/24 08:00 Room Air 03/22/24 07:49 36.5 C 67 16 112/68 96 Room Air 03/22/24 07:31 66 15 98 Room Air 21 Diagnostic Findings MRI demonstrates osteoarthritis of the knee with degenerative meniscus tears and medial osteophytes. (1) Knee joint injury Encounter type: initial encounter Laterality: right Qualified Code(s): S89.91XA - Unspecified injury of right lower leg, initial encounter (2) Osteoarthritis of right knee Osteoarthritis type: primary Qualified Code(s): M17.11 - Unilateral primary osteoarthritis, right knee
[2024-03-23 06:30] LABS: Basophils # (auto) 0.06 K/uL (0.00-0.20); Basophils % (auto) 0.5 %; Eosinophils # (auto) 0.56 K/uL (0.00-0.50); Eosinophils % (auto) 4.3 %; Hematocrit (blood only) 36.7 % (42.0-52.0); Hemoglobin 11.6 g/dl (14.0-18.0); Immature Granulocytes # (auto) 0.24 K/uL (0.01-0.20); Immature Granulocytes % (auto) 1.9 %; Lymphocytes # (auto) 3.63 K/uL (1.20-3.40); Lymphocytes % (auto) 28.1 %; Mean Corpuscular Hgb Conc 31.6 g/dL (32.0-36.0); Mean Corpuscular Volume 82.1 fL (80.0-100.0); Mean Platelet Volume 11.4 fL (9.4-12.4); Monocytes # (auto) 0.86 K/uL (0.11-0.59); Monocytes % (auto) 6.7 %; Neutrophils # (auto) 7.56 K/uL (1.40-6.50); Neutrophils % (auto) 58.5 %; Platelet Count 254 K/uL (130-400); RDW Coefficient of Variation 19.1 % (11.5-14.5); Red Blood Count 4.47 M/uL (4.70-6.10); White Blood Count 12.91 K/ul (4.8-10.8)
--- NOTE | 2024-03-23 08:07 | Orthopedic Progress Note ---
Date of Service March 23, 2024 Assessment & Plan (1) Osteoarthritis of right knee: Plan: Grade 3 OA with degenerative meniscus tears right knee knee pain possible AVN area femoral condyle with AVN bilateral hips. Morbid obesity and high risk. Patient discussed condition with his and he wants to hold off on any injection. He can continue with PT bracing and get surgical opinion at tertiary care center. I discussed with him he would benefit from GLP-1 drug weight loss if he is a candidate for that after his infection is treated appropriately. His white blood cell count has decreased and continues to trend downward. Will sign off at this time. (2) Knee joint injury: Admission and Anticipated Discharge Date Admission Date: March 14, 2024 Subjective No change in symptoms Physical Exam Physical Exam: No change in exam Results & Data Vital Signs (Past 12 Hours) Vital Signs Temp Pulse Resp BP Pulse Ox O2 Del Method O2 Flow Rate 03/23/24 07:52 36.9 C 70 18 118/68 96 Room Air 03/23/24 07:42 70 16 95 Room Air 03/22/24 20:26 36.9 C 69 18 97/57 L 96 Nasal Cannula 4 (1) Osteoarthritis of right knee Osteoarthritis type: primary Qualified Code(s): M17.11 - Unilateral primary osteoarthritis, right knee (2) Knee joint injury Encounter type: initial encounter Laterality: right Qualified Code(s): S89.91XA - Unspecified injury of right lower leg, initial encounter
--- NOTE | 2024-03-23 13:50 | Hospitalist Progress Note ---
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 Milner is a 53 year old gentleman with history of chronic diastolic heart failure (EF 60 to 65%, TTE 2022), history CAD/STEMI as per records, history subdural hematoma/subarachnoid hemorrhage as per records (no operative intervention), hypertension, hyperlipidemia, COPD, recurrent PE on Coumadin, DM 2 insulin requiring, recurrent UTIs secondary to BPH/chronic urinary retention indwelling Fontaine catheter, chronic anemia (baseline hemoglobin 12-13), chronic pain on buprenorphine, drug-seeking behavior as per records, ongoing tobacco abuse who is admitted for management of allergic reaction after CT contrast administration. Patient improved with IV steroids. Course prolonged given pain in right extremity. Ortho was consulted. There was question regarding kneee injection, however declined as it would postpone possible surgical intervention. Surgery would not be pursued at [facility] given multiple comorbities and high risk for complications; therefore, it was recommended to be performed at a tertiary care center. On 03/22, discussed with patient that these surgeries are elective and a transfer from inpatient would not be pursued given the elective nature. We discussed his multiple medical conditions and that a trial at rehab with OP foll ow up is going to be the next necessary steps for patient. Patient discussed optimism towards rehab today. No changes in current plan. #CAUTI POA Last Fontaine change was during recent admission in December Fontaine catheter changed in ED on presentation Urine culture grew Enterobacter cloacae; initially on CTX Continue Levaquin to complete the course #Hematuria, resolved iso infection and supratherapeutic inr s/p fontaine exchange urine clear on todays exam #Acute on chronic leukocytosis multifactorial, baseline is 11-14, likely exacerbated iso infection/steroids chronic tobacco use likely contributing #Acute on chronic right knee pain s/p mechanical fall #Ambulatory dysfunction #Lateral meniscal tear #Avascular necrosis of R tibia/femur Knee X ray:Degenerative changes without evidence of acute injury. R knee MRI:Highly limited exam due to patient motion. There is possible bucket- handle type tear of the lateral meniscus. Degenerative changes are seen in the medial meniscus without yeimi tear. Serpiginous lesions in the tibia and femur compatible with avascular necrosis. Trace joint effusion. MRI R femur:No fractures within the right femur. Increased T2 signal within the vastus lateralis suggestive of a grade I muscle sprain. Avascular necrosis of the bilateral femoral heads without articular collapse. Serpiginous signal abnormality within the distal right femur, partially imaged on this exam. This suggests a bone infarct/focus of avascular necrosis. R leg X ray:No fractures within the right tibia or fibula. No suspicious lytic lesions by radiography. The bone infarcts/foci of avascular necrosis within the proximal right tibia on MRI of March 16, 2024 are not evident by radiography. MRI R leg:Multifocal serpiginous signal abnormality within the right tibia and fibula, as described above. These are consistent with bone infarcts/foci of avascular necrosis. No fractures within the right tibia or fibula. Nonspecific mild increased T2 signal within the posterior compartment musculature of the right lower leg. No associated fluid collections. Mild subcutaneous edema of the right lower leg. -Fall precautions PT OT: Recommends rehab placement, pending discharge 03/24 Appreciate orthopedics input -elective procedure requires tertiary care -BMI >50, insulin dependence, chronic AC, HF, hx of respiratory arrest Case management to help with discharge planning Continue brace with activity Hold on steroid injection Plan for OP PCP follow up for referral to provider affiliated with tertiary care center #Acute kidney injury *Resolved Avoid nephrotoxic agents as able Monitor renal function #Hypophosphatemia #Hypomagnesemia Replace electrolytes as needed Monitor #Allergic reaction 2/2 IV contrast, resolved Patient had Allergic reaction likely from IV contrast Patient received epinephrine, steroids and nebs in ED Continue Pepcid, Benadryl as needed IV Solu-Medrol transitioned to prednisone Completed prednisone taper course Resolved #Constipation --KUB no definite evidence of bowel obstruction Continue bowel regimen Resolved #Prior Recurrent PE #Supratherapeutic INR due to Coumadin INR reversed with vitamin K on presentation Monitor INR:1.0 today Adjust Coumadin dose as needed Increase Coumadin to 10 mg today Also on SQ heparin till INR therapeutic #Hx of Syncope with Fall Fall precautions PT/OT as able #COPD Chronic wheezing Continue nebs, steroids, inhalers Titrate down steroids as able #DM II Continue insulin per protocol Monitor BGs #Morbid obesity BMI 53.0 #Tobacco abuse continues to smoke 1 pack a day Recommended quitting #Chronic diastolic CHF states he has run out of torsemide euvolemic currently Continue home torsemide, Aldactone Patient refuses to be on fluid restriction. Aware of risks. #BPH with urinary retention continue Flomax and finasteride. #GERD continue PPI, Pepcid #Chronic pain on buprenorphine, duloxetine, gabapentin, Flexeril prn. DVT Px: Coumadin Will discontinue SQ heparin when INR is therapeutic CODE STATUS Full code Disposition Wednesday to SNF Admission and Anticipated Discharge Date Admission Date: March 14, 2024 Results & Data Results & Data Vital Signs (Past 12 Hours) Vital Signs Temp Pulse Resp BP Pulse Ox O2 Del Method 03/23/24 13:42 73 20 93 Room Air 03/23/24 08:00 Room Air 03/23/24 07:52 36.9 C 70 18 118/68 96 Room Air 03/23/24 07:42 70 16 95 Room Air Laboratory Results Short CBC 03/23/24 Range/Units 05:50 WBC 12.91 H (4.8-10.8) K/ul Hgb 11.6 L (14.0-18.0) g/dl Hct 36.7 L (42.0-52.0) % Plt Count 254 (130-400) K/uL Medications Administered Home Medications Medication Instructions Recorded Confirmed Last Taken aspirin 81 mg tablet,delayed 81 mg PO QAM 11/17/18 03/14/24 03/13/24 release (Ecotrin Low Strength) nitroglycerin 0.4 mg sublingual 0.4 mg sublingual DIRECTED PRN 12/09/18 03/14/24 11/08/22 tablet (Nitrostat) CHEST PAIN nystatin 100,000 unit/gram topical 1 applic topical TID PRN Skin 12/09/1803/1401/30/20 powder Irritation polyethylene glycol 3350 17 gram 17 g PO QAM PRN Constipation 12/09/18 03/14/24 07/19/23 oral powder packet (Miralax) finasteride 5 mg tablet 5 mg PO QAM 03/03/19 03/14/24 03/06/24 docusate sodium 100 mg capsule 100 mg PO BID PRN Constipation 08/11/19 03/14/24 07/19/23 folic acid 1 mg tablet 1 mg PO QAM 12/07/19 03/14/24 03/06/24 sennosides 8.6 mg tablet (senna) 8.6 mg PO DAILY PRN Constipation 12/07/19 03/14/24 03/06/24 duloxetine 60 mg capsule,delayed 60 mg PO DAILY 07/05/20 03/14/24 03/13/24 release famotidine 20 mg tablet 20 mg PO DAILY 07/05/20 03/14/24 03/06/24 glipizide 10 mg tablet 10 mg PO BID 01/12/21 03/14/24 03/13/24 ferrous sulfate 325 mg (65 mg 325 mg PO QAM 10/24/21 03/14/24 03/13/24 iron) tablet hydroxyzine HCl 25 mg tablet 25 mg PO QID PRN Anxiety 10/24/21 03/14/24 Unknown urea 20 % topical cream 1 applic topical BID Dry Areas on 10/24/21 03/14/24 03/13/24 (Ureacin-20) Soles and Legs insulin aspart U-100 100 unit/mL 0 sliding scale dose subcut TIDM 04/07/23 03/14/24 03/13/24 (3 mL) subcutaneous pen (Novolog FlexPen U-100 Insulin aspart) buprenorphine HCl 8 mg sublingual See Rx Instructions .Route .COMPLEX 05/04/23 03/14/24 03/13/24 tablet fluticasone propionate 93 2 spray intranasal DAILY 08/22/23 03/14/24 03/13/24 mcg/actuation breath activated aerosol ipratropium 0.5 mg-albuterol 3 mg 3 ml inhalation TID 08/22/23 03/14/24 03/13/24 (2.5 mg base)/3 mL nebulization soln metoprolol succinate 50 mg 75 mg (1.5 x 50 mg) PO BID 30 days 09/26/23 03/14/24 03/13/24 tablet,extended release 24 hr #180 tabs tamsulosin 0.4 mg capsule (Flomax) 0.8 mg (2 x 0.4 mg) PO QAM #180 01/07/24 06/25/24 06/24/24 caps isosorbide dinitrate 30 mg tablet 30 mg PO DAILY #30 tabs 10/11/23 03/14/24 03/13/24 albuterol sulfate 90 mcg/actuation 2 puff inhalation Q4 PRN Dyspnea 11/26/23 03/14/24 Unknown aerosol inhaler 30 days #1 inh budesonide 0.5 mg/2 mL suspension 0.5 mg (2 mL) inhalation Q12H 30 11/26/23 03/14/24 03/06/24 for nebulization days #60 mL cyclobenzaprine 10 mg tablet 10 mg PO BID PRN Muscle Spasm #15 11/26/23 03/14/24 03/06/24 tabs fluticasone 250 mcg-salmeterol 50 1 inh inhalation BID 30 days #1 ea 11/26/23 03/14/24 03/06/24 mcg/dose blistr powdr for inhalation (Advair Diskus) insulin glargine 100 unit/mL 50 unit (0.5 mL) SC HS 30 days #15 11/26/23 03/14/24 03/13/24 subcutaneous solution (Lantus mL U-100 Insulin) omeprazole 20 mg capsule,delayed 20 mg PO DAILYBB 30 days #30 caps 11/26/23 03/14/24 03/06/24 release Lactobacillus acidophilus 1 tab PO DAILY 12/25/23 03/14/24 03/13/24 dextromethorphan-guaifenesin 30 1 tab PO Q12H PRN Cough 12/25/23 03/14/24 Unknown mg-600 mg tablet extended xtncess19 hr (Mucinex DM) magnesium oxide 400 mg (241.3 mg 400 mg PO QAM 12/25/23 03/14/24 03/06/24 magnesium) tablet potassium chloride 20 mEq 20 meq PO BID 12/25/23 03/14/24 03/13/24 tablet,extended release(part/cryst) spironolactone 25 mg tablet 25 mg PO QAM 12/25/23 03/14/24 03/13/24 torsemide 100 mg tablet 100 mg PO DAILY 12/25/23 03/14/24 03/06/24 gabapentin 800 mg tablet 800 mg PO TID #90 tabs 12/30/23 03/14/24 03/06/24 ondansetron HCl 4 mg tablet 4 mg PO Q8H PRN NAUSEA/VOMITING 12/30/23 03/14/24 03/06/24 #12 tabs atorvastatin 80 mg tablet 80 mg PO QPM 03/14/24 03/14/24 03/13/24 bisacodyl 5 mg tablet 10 mg PO DAILY PRN Constipation 03/14/24 03/14/24 Unknown warfarin 4 mg tablet 2 - 4 mg PO QPM 03/14/24 03/14/24 03/13/24 Active Medications Generic Name Dose Route Start Last Admin Trade Name Ruby PRN Reason Stop Dose Admin Albuterol 2 puffs 03/14/24 16:52 03/22/24 09:57 Albuterol Hfa 8 Gm Inhaler INH 04/13/24 16:51 2 puffs Q4 PRN Administration Dyspnea Albuterol 3 ml 03/14/24 19:00 03/23/24 13:41 Albut/Ipratrop 3mg/0.5mg Neb 3 Ml Vial INH 04/13/24 18:59 3 ml TIDR EMPERATRIZ Administration Protocol Aspirin 81 mg 03/15/24 09:00 03/23/24 08:04 Aspirin 81 Mg Ectab PO 04/14/24 08:59 81 mg QAM EMPERATRIZ Administration Atorvastatin Calcium 80 mg 03/15/24 09:00 03/23/24 08:03 Atorvastatin 40 Mg Tab PO 04/14/24 08:59 80 mg QAM EMPERATRIZ Administration Budesonide 0.5 mg 03/14/24 19:00 03/23/24 07:42 Budesonide 0.5 Mg/2 Ml Vial (Pulmicort) INH 04/13/24 18:59 0.5 mg BIDR EMPERATRIZ Administration Buprenorphine HCl 8 mg 03/14/24 21:00 03/23/24 08:26 Buprenorphine Hcl 8 Mg Subl SL 04/13/24 20:59 8 mg BID EMPERATRIZ Administration Buprenorphine HCl 4 mg 03/15/24 14:00 03/22/24 14:54 Buprenorphine Hcl 2 Mg Subl SL 04/14/24 13:59 4 mg DAILY@1400 EMPERATRIZ Administration Cyclobenzaprine HCl 10 mg 03/14/24 16:52 03/23/24 09:08 Cyclobenzaprine Hcl 10 Mg Tab PO 04/13/24 16:51 10 mg BID PRN Administration Muscle Spasm Diclofenac Sodium 2 gm 03/14/24 21:00 03/23/24 08:04 Diclofenac Sod 1% Gel 100 Gm Tube EXT 04/13/24 20:59 2 gm TID EMPERATRIZ Administration Protocol Diphenhydramine HCl 25 mg 03/16/24 15:34 03/16/24 16:32 Diphenhydramine Hcl 25 Mg/10 Ml Udc PO 04/15/24 15:33 25 mg Q6H PRN Administration Allergy Symptoms Docusate Sodium 100 mg 03/18/24 21:00 03/23/24 08:01 Docusate Sodium 100 Mg Cap PO 04/17/24 20:59 100 mg BID EMPERATRIZ Administration Duloxetine HCl 60 mg 03/15/24 09:00 03/23/24 08:04 Duloxetine Hcl 60 Mg Cap PO 04/14/24 08:59 60 mg DAILY EMPERATRIZ Administration Famotidine 20 mg 03/15/24 09:00 03/23/24 08:04 Famotidine 20 Mg Tab PO 04/14/24 08:59 20 mg DAILY EMPERATRIZ Administration Ferrous Sulfate 325 mg 03/17/24 08:00 03/23/24 08:01 Ferrous Sulfate 325 Mg Tab PO 04/16/24 07:59 325 mg DAILY@0800 EMPERATRIZ Administration Finasteride 5 mg 03/15/24 09:00 03/23/24 08:03 Finasteride 5 Mg Tab PO 04/14/24 08:59 5 mg QAM EMPERATRIZ Administration Fluticasone Propionate 2 sprays 03/15/24 09:00 03/23/24 08:08 Fluticasone Propionate Na Spr 16 Gm Btl NA 04/14/24 08:59 2 sprays DAILY EMPERATRIZ Administration Fluticasone/Vilanterol 1 puffs 03/15/24 09:00 03/23/24 08:08 Fluticasone/Vilanterol 200/25mcg 14 Puffs/Inhaler INH 04/14/24 08:59 1 puffs DAILY EMPERATRIZ Administration Gabapentin 800 mg 03/14/24 21:00 03/23/24 08:03 Gabapentin 800 Mg Tab PO 04/13/24 20:59 800 mg TID EMPERATRIZ Administration Guaifenesin 600 mg 03/15/24 10:45 03/23/24 08:03 Guaifenesin 600 Mg Tabcr PO 04/14/24 10:44 600 mg Q12 EMPERATRIZ Administration Heparin Sodium (Porcine) 5,000 units 03/21/24 14:00 03/23/24 06:01 Heparin Sod 5,000 Unit/0.5 Ml Vial SQ 04/20/24 13:59 5,000 units Q8 EMPERATRIZ Administration Acetaminophen 1,000 mg in 100 mls @ 400 mls/hr 03/21/24 11:11 03/23/24 10:46 Ofirmev IV 03/24/24 11:10 Infused Q8H PRN Infusion Moderate Pain (Scale 4, 5, 6) Insulin Aspart 0 units 03/15/24 07:30 03/23/24 11:59 Insulin Aspart Per Unit Charge SC 04/14/24 07:29 16 units ACHS EMPERATRIZ Administration Protocol Isosorbide Dinitrate 30 mg 03/15/24 09:00 03/23/24 08:05 Isosorbide Dinitrate 20 Mg Tab PO 04/14/24 08:59 30 mg DAILY EMPERATRIZ Administration Lactic Acid 1 gm 03/22/24 14:30 03/23/24 08:06 Ammonium Lactate 12% Lotion 225 Gm Btl EXT 04/21/24 14:29 1 gm DAILY EMPERATRIZ Administration Lactobacillus Acidophilus 1 packet 03/15/24 09:00 03/23/24 08:02 Lactobacillus Acidophilus 1 Gm Pack PO 04/14/24 08:59 1 packet DAILY EMPERATRIZ Administration Levofloxacin 750 mg 03/16/24 11:00 03/23/24 10:32 Levofloxacin 750 Mg Tab PO 03/26/24 10:59 750 mg DAILY@1100 EMPERATRIZ Administration Protocol Lidocaine 2 patch 03/14/24 18:00 03/23/24 08:08 Lidocaine 5% 1 Patch TD 04/13/24 17:29 Not Given DAILY EMPERATRIZ Lorazepam 0.5 mg 03/15/24 10:46 03/22/24 20:33 Lorazepam 0.5 Mg Tab PO 04/14/24 10:45 0.5 mg BID PRN Administration Anxiety Magnesium Oxide 400 mg 03/15/24 09:00 03/23/24 08:07 Magnesium Oxide 400 Mg Tab PO 04/14/24 08:59 400 mg QAM EMPERATRIZ Administration Menthol 1 fernie 03/20/24 06:09 03/21/24 15:32 Cough Drop (Sugar Free) Fernie 24 Fernie/1 Box BUCCAL 04/19/24 06:08 1 fernie Q1H PRN Administration Sore Throat Metoprolol Succinate 75 mg 03/14/24 21:00 03/23/24 08:00 Metoprolol Succ 50mg Ext Rel Tab PO 04/13/24 20:59 75 mg BID EMPERATRIZ Administration Miscellaneous 1 each 03/15/24 08:59 03/23/24 08:08 Remove Nicoderm Patch N/A 04/14/24 08:58 1 each DAILY@0859 EMPERATRIZ Administration Miscellaneous 1 each 03/14/24 21:00 03/22/24 20:22 Remove Lidoderm Patch N/A 04/13/24 20:59 Not Given DAILY@2100 EMPERATRIZ Neomycin/Polymyxin/Bacitracin 1 appln 03/18/24 17:15 03/23/24 08:06 Neomycin/Polymyx/Bacitr Oint 15 Gm Tube EXT 04/17/24 17:14 1 appln BID EMPERATRIZ Administration Nicotine 1 patch 03/14/24 14:45 03/23/24 08:06 Nicotine 21 Mg/24 Hr Tdsy TD 04/13/24 14:44 1 patch QAM EMPERATRIZ Administration Oxycodone HCl 10 mg 03/22/24 14:23 03/23/24 09:09 Oxycodone Hcl Ir 5 Mg Tab (Immediate Release) PO 04/01/24 13:50 10 mg Q6H PRN Administration Mod-Sev Pain (Scale 4-10) Pantoprazole Sodium 40 mg 03/15/24 06:30 03/23/24 06:01 Pantoprazole 40 Mg Tab PO 04/14/24 06:29 40 mg DAILYBB EMPERATRIZ Administration Polyethylene Glycol 17 gm 03/18/24 21:00 03/23/24 08:07 Polyethylene (Miralax) 17 Gm Pack PO 04/17/24 20:59 17 gm BID EMPERATRIZ Administration Sennosides 8.6 mg 03/19/24 21:00 03/22/24 20:20 Senna 8.6 Mg Tab PO 04/18/24 20:59 8.6 mg HS EMPERATRIZ Administration Spironolactone 25 mg 03/16/24 09:00 03/23/24 08:05 Spironolactone 25 Mg Tab PO 04/15/24 08:59 25 mg QAM EMPERATRIZ Administration Tamsulosin HCl 0.8 mg 03/15/24 09:00 03/23/24 08:09 Tamsulosin Hcl 0.4 Mg Cap PO 04/14/24 08:59 0.8 mg QAM EMPERATRIZ Administration Torsemide 100 mg 03/16/24 09:00 03/23/24 08:01 Torsemide 100 Mg Tab PO 04/15/24 08:59 100 mg DAILY EMPERATRIZ Administration (3) Hematuria Hematuria type: gross Qualified Code(s): R31.0 - Gross hematuria (5) Syncope Syncope type: unspecified Qualified Code(s): R55 - Syncope and collapse (8) COPD (chronic obstructive pulmonary disease) COPD type: unspecified COPD Qualified Code(s): J44.9 - Chronic obstructive pulmonary disease, unspecified
[2024-03-23] MEDS: WARFARIN SOD 10 MG TAB PO SCH (17:08)
[2024-03-23] MEDS: LANTUS PER UNIT CHARGE SC SCH (17:16)
[2024-03-23] MEDS: BUPIVACAINE 0.5 % 5 MG/1 ML MPF 30ML VIAL INFIL ONE (19:32)
[2024-03-23] MEDS: ETHYL CHLORIDE AER SPR 100 ML CAN EXT ONE (19:32)
[2024-03-23] MEDS: methylPREDNISolone acetate 80 MG/ML VIAL IA ONE (19:32)
[2024-03-24 06:26] LABS: INR 1.1 (0.9-1.1); Prothrombin Time 11.8 Seconds (9.0-12.0)
[2024-03-24 08:02] VITALS: PULSE 77; RESP 18; TEMP 97.9; O2SAT 98
--- NOTE | 2024-03-24 09:59 | Discharge Summary ---
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 Milner is a 53 year old gentleman with history of chronic diastolic heart failure (EF 60 to 65%, TTE 2022), history CAD/STEMI as per records, his tory subdural hematoma/subarachnoid hemorrhage as per records (no operative intervention), hypertension, hyperlipidemia, COPD, recurrent PE on Coumadin, DM 2 insulin requiring, recurrent UTIs second uziel to BPH/chronic urinary retention indwelling Fontaine catheter, chronic anemia (baseline hemoglobin 12-13), chronic pain on buprenorphine, drug-seeking behavior as per records, ongoing tobacco abuse who is admitted for management of allergic reaction after CT contrast administration. Patient improved with IV steroids. Course prolonged given pain in right extremity. Ortho was consulted. There was question regarding kneee injection, however declined as it would postpone possible surgical intervention. Surgery would not be pursued at CT given multiple comorbities and high risk for complications; therefore, it was recommended to be performed at a tertiary care center. On 03/22, discussed with patient that these surgeries are elective and a transfer from inpatient would not be pursued given the elective nature. We discussed his multiple medical conditions and that a trial at rehab with OP follow up is going to be the next necessary steps for patient. Patient evaluated on day of discharge and denied any acute concerns. Patient reports eagerness for rehab #CAUTI POA Last Fontaine change was during recent admission in December Fontaine catheter changed in ED on presentation Urine culture grew Enterobacter cloacae; initially on CTX Continue Levaquin, 2 more doses #Hematuria, resolved iso infection and supratherapeutic inr s/p fontaine exchange urine remains clear on toda's exam #Acute on chronic leukocytosis multifactorial, baseline is 11-14, likely exacerbated iso infection/steroids chronic tobacco use likely contributing #Acute on chronic right knee pain s/p mechanical fall #Ambulatory dysfunction #Lateral meniscal tear #Avascular necrosis of R tibia/femur Knee X ray:Degenerative changes without evidence of acute injury. R knee MRI:Highly limited exam due to patient motion. There is possible bucket- handle type tear of the lateral meniscus. Degenerative changes are seen in the medial meniscus without yeimi tear. Serpiginous lesions in the tibia and femur compatible with avascular necrosis. Trace joint effusion. MRI R femur:No fractures within the right femur. Increased T2 signal within the vastus lateralis suggestive of a grade I muscle sprain. Avascular necrosis of the bilateral femoral heads without articular collapse. Serpiginous signal abnormality within the distal right femur, partially imaged on this exam. This suggests a bone infarct/focus of avascular necrosis. R leg X ray:No fractures within the right tibia or fibula. No suspicious lytic lesions by radiography. The bone infarcts/foci of avascular necrosis within the proximal right tibia on MRI of March 16, 2024 are not evident by radiography. MRI R leg:Multifocal serpiginous signal abnormality within the right tibia and fibula, as described above. These are consistent with bone infarcts/foci of avascular necrosis. No fractures within the right tibia or fibula. Nonspecific mild increased T2 signal within the posterior compartment musculature of the right lower leg. No associated fluid collections. Mild subcutaneous edema of the right lower leg. -Fall precautions PT OT: Recommends rehab placement, pending discharge 03/24 Appreciate orthopedics input -elective procedure requires tertiary care -BMI >50, insulin dependence, chronic AC, HF, hx of respiratory arrest Case management to help with discharge planning Continue brace with activity Hold on steroid injection Plan for OP PCP follow up for referral to provider affiliated with tertiary care center #Acute kidney injury *Resolved Avoid nephrotoxic agents as able Monitor renal function #Hypophosphatemia resolved #Hypomagnesemia resolved Replace electrolytes as needed Monitor #Allergic reaction 2/2 IV contrast, resolved Patient had Allergic reaction likely from IV contrast Patient received epinephrine, steroids and nebs in ED Continue Pepcid, Benadryl as needed IV Solu-Medrol transitioned to prednisone Completed prednisone taper course #Constipation --KUB no definite evidence of bowel obstruction Continue bowel regimen Resolved #Prior Recurrent PE #Supratherapeutic INR due to Coumadin INR reversed with vitamin K on presentation Monitor INR:1.0 today Adjust Coumadin dose as needed Continue Coumadin to 10 mg today 150mg BID lovenox upon discharge to rehab Follow up INR in 3 days #Hx of Syncope with Fall Fall precautions PT/OT as able #COPD Chronic wheezing Continue nebs, steroids, inhalers Titrate down steroids as able #DM II Continue insulin per protocol Monitor BGs #Morbid obesity BMI 53.0 #Tobacco abuse continues to smoke 1 pack a day Recommended quitting #Chronic diastolic CHF states he has run out of torsemide euvolemic currently Continue home torsemide, Aldactone Patient refuses to be on fluid restriction. Aware of risks. #BPH with urinary retention continue Flomax and finasteride. #GERD continue PPI, Pepcid #Chronic pain on buprenorphine, duloxetine, gabapentin, Flexeril prn. DVT Px: Coumadin Will discontinue SQ heparin when INR is therapeutic CODE STATUS Full code Disposition Wednesday to SNF Notes For Next Care Provider Medication Changes From Visit Continue Coumadin to 10 150mg BID lovenox upon discharge to rehab Follow up INR in 3 days Levofloxacin 750mg daily for 2 more doses Admission HPI Per Admitting Provider Stanton Milner is a 53y/o M with PMHx of DM type II with peripheral neuropathy, COPD, DARIA, chronic diastolic heart failure, hx of CAD/STEMI, hx of subdural hematoma/subarachnoid hemorrhage, HTN, hyperlipidemia, recurrent PE on warfarin, recurrent UTIs 2/2 BPH/chronic urinary retention, indwelling Fontaine catheter, hx of MRSA/VRE, venous insufficiency, CAD, GERD, morbid obesity, chronic pain syndrome on buprenorphine, chronic anemia, tobacco use disorder, depression with anxiety and other problems listed below who presented to the ED via EMS for evaluation secondary to acute hematuria. History obtained from patient and associated chart review. Patient has had multiple admissions at [facility] this year. Most recent admission 12/24-12/29; he was admitted for complicated UTI, syncope and respiratory failure. Of note, patient had to be intubated during his last admission and was discharged on nocturnal supplemental oxygen use. Previous urine culture pansensitive Citrobacter; received IV meropenem while admitted. He was discharged at that time on an oral course of ciprofloxacin. States he feels like he has an UTI. States he hasnot had his fontaine changed since recent hospitalization as he has no means to get to the appointment. Over past few days, he had fever with dirty urine and blood/clots. Yesterday, he had a syncope and fall and has pain in his neck and right knee. He came to the ED. Fontaine was changed in ED. CT were ordered. He was getting CT with iv contrast where he had an allergic reaction with itching, bronchospasm, drop in saturation and was moira efly unresponsive. He was treated with nebs, steroids, epi and had significantly improved during my encounter. He states he has run out of multiple medications over the past couple weeks as he has not been able to go to the office visits. He is complaining of pain in neck and knee. He continues to smoke. He has lost good amount of weight and feels good. Admission Exam Per Admitting Provider General: Sitting comfortably in bed, not in distress, on room air HEENT: EOMI, TIAN, MMM Chest: Fair breath sounds bilaterally with rhonchi CVS: Regular rate and rhythm, normal heart sounds, no murmur Abdomen: Soft, non tender, not distended, normal bowel sounds Neuro: Awake, alert, oriented, conversing well, non focal Extremities: Mild edema Fontaine with johnny urine Discharge Exam Constitutional WD/WN, vitals as above Respiratory diminished 2/2 habitus Cardiovascular RRR, no murmur, no edema Gastrointestinal (Abdomen) normal bowel sounds, soft, nontender, no hepatosplenomegaly Musculoskeletal right leg in straight brace Updated Medication List Medication Instructions Recorded Confirmed Type aspirin 81 mg tablet,delayed 81 mg PO QAM 11/17/18 03/14/24 History release (Ecotrin Low Strength) nitroglycerin 0.4 mg sublingual 0.4 mg sublingual DIRECTED PRN 12/09/18 03/14/24 History tablet (Nitrostat) CHEST PAIN nystatin 100,000 unit/gram topical 1 applic topical TID PRN Skin 12/09/18 03/14/24 History powder Irritation polyethylene glycol 3350 17 gram 17 g PO QAM PRN Constipation 12/09/18 03/14/24 History oral powder packet (Miralax) finasteride 5 mg tablet 5 mg PO QAM 03/03/19 03/14/24 History docusate sodium 100 mg capsule 100 mg PO BID PRN Constipation 08/11/19 03/14/24 History folic acid 1 mg tablet 1 mg PO QAM 12/07/19 03/14/24 History sennosides 8.6 mg tablet (senna) 8.6 mg PO DAILY PRN Constipation 12/07/19 03/14/24 History duloxetine 60 mg capsule,delayed 60 mg PO DAILY 07/05/20 03/14/24 History release famotidine 20 mg tablet 20 mg PO DAILY 07/05/20 03/14/24 History glipizide 10 mg tablet 10 mg PO BID 01/12/21 03/14/24 History ferrous sulfate 325 mg (65 mg 325 mg PO QAM 10/24/21 03/14/24 History iron) tablet hydroxyzine HCl 25 mg tablet 25 mg PO QID PRN Anxiety 10/24/21 03/14/24 History urea 20 % topical cream 1 applic topical BID Dry Areas on 10/24/21 03/14/24 History (Ureacin-20) Soles and Legs insulin aspart U-100 100 unit/mL 0 sliding scale dose subcut TIDM 04/07/23 03/14/24 History (3 mL) subcutaneous pen (Novolog FlexPen U-100 Insulin aspart) buprenorphine HCl 8 mg sublingual See Rx Instructions .Route .COMPLEX 05/04/23 03/14/24 History tablet fluticasone propionate 93 2 spray intranasal DAILY 08/22/23 03/14/24 History mcg/actuation breath activated aerosol ipratropium 0.5 mg-albuterol 3 mg 3 ml inhalation TID 08/22/23 03/14/24 History (2.5 mg base)/3 mL nebulization soln metoprolol succinate 50 mg 75 mg (1.5 x 50 mg) PO BID 30 days 09/26/23 03/14/24 Rx tablet,extended release 24 hr #180 tabs tamsulosin 0.4 mg capsule (Flomax) 0.8 mg (2 x 0.4 mg) PO QAM #180 09/26/23 03/14/24 Rx caps isosorbide dinitrate 30 mg tablet 30 mg PO DAILY #30 tabs 10/11/23 03/14/24 Rx albuterol sulfate 90 mcg/actuation 2 puff inhalation Q4 PRN Dyspnea 11/26/23 03/14/24 Rx aerosol inhaler 30 days #1 inh budesonide 0.5 mg/2 mL suspension 0.5 mg (2 mL) inhalation Q12H 30 11/26/23 03/14/24 Rx for nebulization days #60 mL cyclobenzaprine 10 mg tablet 10 mg PO BID PRN Muscle Spasm #15 11/26/23 03/14/24 Rx tabs fluticasone 250 mcg-salmeterol 50 1 inh inhalation BID 30 days #1 ea 11/26/23 03/14/24 Rx mcg/dose blistr powdr for inhalation (Advair Diskus) insulin glargine 100 unit/mL 50 unit (0.5 mL) SC HS 30 days #15 11/26/23 03/14/24 Rx subcutaneous solution (Lantus mL U-100 Insulin) omeprazole 20 mg capsule,delayed 20 mg PO DAILYBB 30 days #30 caps 11/26/23 03/14/24 Rx release Lactobacillus acidophilus 1 tab PO DAILY 12/25/23 03/14/24 History dextromethorphan-guaifenesin 30 1 tab PO Q12H PRN Cough 12/25/23 03/14/24 History mg-600 mg tablet extended commxst37 hr (Mucinex DM) magnesium oxide 400 mg (241.3 mg 400 mg PO QAM 12/25/23 03/14/24 History magnesium) tablet potassium chloride 20 mEq 20 meq PO BID 12/25/23 03/14/24 History tablet,extended release(part/cryst) spironolactone 25 mg tablet 25 mg PO QAM 12/25/23 03/14/24 History torsemide 100 mg tablet 100 mg PO DAILY 12/25/23 03/14/24 History gabapentin 800 mg tablet 800 mg PO TID #90 tabs 12/30/23 03/14/24 Rx ondansetron HCl 4 mg tablet 4 mg PO Q8H PRN NAUSEA/VOMITING 12/30/23 03/14/24 Rx #12 tabs atorvastatin 80 mg tablet 80 mg PO QPM 03/14/24 03/14/24 History bisacodyl 5 mg tablet 10 mg PO DAILY PRN Constipation 03/14/24 03/14/24 History warfarin 4 mg tablet 2 - 4 mg PO QPM 03/14/24 03/14/24 History enoxaparin 150 mg/mL subcutaneous 150 mg subcut Q12H #10 mL 03/24/24 Rx syringe levofloxacin 750 mg tablet 750 mg PO DAILY@1100 #2 tabs 03/24/24 Rx oxycodone 5 mg tablet 10 mg (2 x 5 mg) PO Q6H PRN pain 03/24/24 Rx (scale score 7-10) #14 tabs warfarin 10 mg tablet 10 mg PO DAILY #30 tabs 03/24/24 Rx Hospital Stay Data Consultations 03/14/24 13:25 ED Decision to Admit Stat 03/15/24 10:42 Consult Orthopedic Surgery Routine 03/20/24 13:54 Consult Orthopedic Surgery Routine Diagnostic Imagining Performed 03/14/24 09:55 CT abd pelvis IV con only Stat CT cervical spine wo con Stat CT head/brain wo con Stat 03/16/24 00:00 MR knee RT wo con Routine 03/18/24 09:55 MRI Femur [MR femur RT wo con] Routine 03/19/24 00:00 MR lower leg RT wo con Routine Pending Results Patient Have Any Pending Studies at Discharge: No Discharge Instructions Given to Patient (Per Discharging Provider) You were noted to have a urinary tract infection for which you were treated with antibiotics. you will have 2 days left of your course. You were noted to have Grade 3 osteoarthritis with degenerative meniscus tears right knee knee pain possible AVN area femoral condyle with AVN bilateral hips. You will need to follow up with an Orthopedics surgeon at a [facility]. Your PCP will arrange this referral. Here is a list of your active problems #Urinary tract infection Fontaine exchanged on 03/15 Continue Levaquin for 2 more doses (03/25 next dose) #Acute on chronic right knee pain after mechanical fall #Ambulatory dysfunction #Lateral meniscal tear #Avascular necrosis of R tibia/femur Knee X ray:Degenerative changes without evidence of acute injury. R knee MRI:Highly limited exam due to patient motion. There is possible bucket- handle type tear of the lateral meniscus. Degenerative changes are seen in the medial meniscus without yeimi tear. Serpiginous lesions in the tibia and femur compatible with avascular necrosis. Trace joint effusion. MRI R femur:No fractures within the right femur. Increased T2 signal within the vastus lateralis suggestive of a grade I muscle sprain. Avascular necrosis of the bilateral femoral heads without articular collapse. Serpiginous signal abnormality within the distal right femur, partially imaged on this exam. This suggests a bone infarct/focus of avascular necrosis. R leg X ray:No fractures within the right tibia or fibula. No suspicious lytic l esions by radiography. The bone infarcts/foci of avascular necrosis within the proximal right tibia on MRI of March 16, 2024 are not evident by radiography. MRI R leg:Multifocal serpiginous signal abnormality within the right tibia and fibula, as described above. These are consistent with bone infarcts/foci of avascular necrosis. No fractures within the right tibia or fibula. Nonspecific mild increased T2 signal within the posterior compartment musculature of the right lower leg. No associated fluid collections. Mild subcutaneous edema of the right lower leg. Rehab will be pivotal to your recovery Ortho Referral from PCP #Constipation Continue bowel regimen #Chronic Anticoagulation #Prior Recurrent PE INR reversed with vitamin K on presentation Monitor INR:1.1 today Coumadin 10mg today Please use lovenox 150mg syringe every 12 hours until iNR therapuetic Follow up INR with 3 days Total Time Total Time Spent Total Time Spent (In Minutes): 45
[2024-03-24] MEDS: ACETAMINOPHEN 1,000 MG/100 ML VIAL IV STA (10:15)
[2024-03-24 10:27] VITALS: BP 108/52
== END 2024-03-24 10:51 | DRG 699 ==
LOC: ED 09:29 → 2E 14:00 → SUATTDRO 14:00 → 2E 16:22 → 3E 03-16 17:20

== ENCOUNTER 2024-07-31 15:44 | Inpatient (IN) ==
--- NOTE | 2024-07-31 16:34 | Emergency Department Note ---
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 particles/crystals 20 meq PO BID magnesium oxide 400 mg (241.3 mg magnesium) tablet 400 mg PO QAM torsemide 100 mg tablet 100 mg PO DAILY ondansetron HCl 4 mg Tablet 4 mg PO Q8H PRN (Reason: NAUSEA/VOMITING) Qty: 12 0RF gabapentin 800 mg tablet 800 mg PO TID Qty: 90 0RF Rx Instructions: MAY INCREASE TO 1,600 MG TID PER [facility]. Referrals Referrals: Roberto Askew MD [Primary Care Provider] -
[2024-07-31 16:59] LABS: Basophils # (auto) 0.08 K/uL (0.00-0.20); Basophils % (auto) 0.5 %; Eosinophils # (auto) 0.27 K/uL (0.00-0.50); Eosinophils % (auto) 1.5 %; Hematocrit (blood only) 44.8 % (42.0-52.0); Hemoglobin 14.3 g/dl (14.0-18.0); Immature Granulocytes # (auto) 0.11 K/uL (0.01-0.20); Immature Granulocytes % (auto) 0.6 %; Lymphocytes # (auto) 3.58 K/uL (1.20-3.40); Lymphocytes % (auto) 20.4 %; Mean Corpuscular Hemoglobin 24.4 pg (25.0-34.0); Mean Corpuscular Hgb Conc 31.9 g/dL (32.0-36.0); Mean Corpuscular Volume 76.3 fL (80.0-100.0); Mean Platelet Volume 10.7 fL (9.4-12.4); Monocytes # (auto) 0.89 K/uL (0.11-0.59); Monocytes % (auto) 5.1 %; Neutrophils # (auto) 12.65 K/uL (1.40-6.50); Neutrophils % (auto) 71.9 %; Platelet Count 295 K/uL (130-400); RDW Coefficient of Variation 19.1 % (11.5-14.5); RDW Standard Deviation 49.6 fL (36.4-46.3); Red Blood Count 5.87 M/uL (4.70-6.10); White Blood Count 17.58 K/ul (4.8-10.8)
[2024-07-31 17:07] LABS: Albumin Globulin Ratio 1.1 (0.9-2); Albumin Level 3.7 gm/dl (3.4-5.0); BUN Creatinine Ratio 13.4 (10-20); Calcium 9.9 mg/dl (8.6-10.3); Creatinine Clr Calc Pharmacy 169.8 ml/min; Globulin 3.4 gm/dl (2.5-4.0); Magnesium 1.6 mg/dl (1.7-2.4); Potassium 3.4 mmol/L (3.5-5.1); Total Protein 7.1 gm/dl (6.0-8.3)
[2024-07-31 17:13] LABS: Troponin I High Sensitivity 8.8 pg/ml (0-20)
--- NOTE | 2024-07-31 17:26 | XRay Report ---
INDICATION: Chest pain. TECHNIQUE: Frontal radiograph of the chest. COMPARISON: Radiograph from 12/12/2018. FINDINGS: Cardiomegaly. Mild pulmonary vascular congestion. No infiltrate, pleural effusion or pneumothorax. No acute osseous abnormality evident. IMPRESSION: Mild pulmonary vascular congestion. Electronically signed by Tank Berg 07-31-2024 5:26 PM
[2024-07-31 17:31] LABS: Adenovirus PCR Not Detected (NotDetected); Bordetella parapertussis PCR Not Detected (NotDetected); Bordetella pertussis PCR Not Detected (NotDetected); Chlamydia pneumoniae PCR Not Detected (NotDetected); Coronavirus 229E PCR Not Detected (NotDetected); Coronavirus CoV-2 (COVID19)PCR Not Detected (NotDetected); Coronavirus HKU1 PCR Not Detected (NotDetected); Coronavirus NL63 PCR Not Detected (NotDetected); Coronavirus OC43PCR Not Detected (NotDetected); Human Metapneumovirus PCR Not Detected (NotDetected); Influenza A PCR Not Detected (NotDetected); Influenza B PCR Not Detected (NotDetected); Mycoplasma pneumoniae PCR Not Detected (NotDetected); Parainfluenza Virus 1 PCR Not Detected (NotDetected); Parainfluenza Virus 2 PCR Not Detected (NotDetected); Parainfluenza Virus 3 PCR Not Detected (NotDetected); Parainfluenza Virus 4 PCR Not Detected (NotDetected); Respiratory Syncytial VirusPCR Not Detected (NotDetected); Rhinovirus/Enterovirus PCR Not Detected (NotDetected)
[2024-07-31] MEDS: ACETAMINOPHEN 1,000 MG/100 ML VIAL IV STA (17:43)
[2024-07-31] MEDS: MAGNESIUM SULFATE / D5W 1 GM/100 ML BAG IV STA (17:58)
[2024-07-31 18:06] LABS: Appearance Urine Cloudy (Clear); Bacteria Urine Automated None Seen (None Seen); Bilirubin Urine Negative (Negative); Blood Urine Negative (Negative); Cast Urine Automated 0-2 /lpf (0-2); Color Urine Yellow; Epithelial Cell Urine Auto 0-2 /hpf (0-2); Glucose Urine UA Negative (Negative); Ketones Urine Negative (Negative); Leukocyte Esterase Urine 3+ (Negative); Nitrite Urine Negative (Negative); Protein Urine Negative (Negative); Specific Gravity Urine 1.011 (1.000-1.030); Urobilinogen Urine Negative (Negative); WBC Urine Automated >50 /hpf (0-5); pH Urine 7.5 (4.5-7.5)
[2024-07-31] MEDS: POTASSIUM CHLORIDE CRTAB 20 MEQ TABCR PO STA (19:53)
[2024-07-31] MEDS: ALBUMIN 25% 25 GM/100 ML VIAL IV ONE (19:54)
[2024-07-31 19:58] LABS: Thyroid Stimulating Hormone 1.026 uIu/ml (0.300-4.500)
[2024-07-31 21:11] LABS: INR 1.7 (0.9-1.1)
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
[2024-07-31] MEDS ORDERED: GLUCOSE 10 TAB/TUBE PO PRN (22:41)
[2024-07-31] MEDS ORDERED: CARBOHYDRATES FOR HYPOGLYCEMIA PO PRN (22:41)
[2024-07-31] MEDS ORDERED: DEXTROSE 50% 50 ML SYRINGE IV PRN (22:41)
[2024-07-31] MEDS ORDERED: GLUCOSE 40% GEL 15 GM TUBE PO PRN (22:41)
[2024-07-31] MEDS ORDERED: GLUCAGON FOR INJ 1 MG VIAL SQ PRN (22:41)
[2024-08-01] MEDS: INSULIN ASPART PER UNIT CHARGE SC SCH (00:13)
[2024-08-01] MEDS: buprenorphine HCL 8 MG SUBL SL SCH (00:18)
[2024-08-01] MEDS: oxyCODONE HCL IR 5 MG TAB (IMMEDIATE RELEASE) PO PRN (00:56)
[2024-08-01] MEDS: GABAPENTIN 600 MG TAB PO SCH (00:57)
[2024-08-01] MEDS: MEROPENEM 500 MG in SYRINGE 0 ML IV STA (00:57)
[2024-08-01] MEDS: METOPROLOL SUCC 25MG EXT REL TAB PO SCH (00:58)
[2024-08-01] MEDS: ATORVASTATIN 40 MG TAB PO SCH (00:58)
--- NOTE | 2024-08-01 01:10 | CT Scan Report ---
Exam(s): CT ABDOMEN + PELVIS Without Contrast EXAM: CT Abdomen and Pelvis Without Intravenous Contrast CLINICAL HISTORY: Reason for exam: flank pain. TECHNIQUE: Axial computed tomography images of the abdomen and pelvis without intravenous contrast. CTDI is 36.23 mGy and DLP is 1786.69 mGy-cm. Automated exposure control was utilized for the study. A dose lowering technique was utilized adhering to the principles of ALARA. COMPARISON: 03/14/24 FINDINGS: Lung bases: Unremarkable. ABDOMEN: Liver: Unremarkable. Gallbladder and bile ducts: Unremarkable. No calcified stones. No ductal dilation. Pancreas: Unremarkable. No ductal dilation. Spleen: Unremarkable. No splenomegaly. Adrenals: Unremarkable. No mass. Kidneys and ureters: Nonobstructing 4 mm right kidney stone. No hydronephrosis of either kidney. Stomach and bowel: Unremarkable. No obstruction. No mucosal thickening. PELVIS: Appendix: Appendectomy. Bladder: Gas in urinary bladder suggesting recent instrumentation. Small bladder dome diverticulum. No stones. Reproductive: Prostate is small in size. ABDOMEN and PELVIS: Intraperitoneal space: Unremarkable. No free air, significant free fluid, or fluid collection. Bones/joints: Mild chronic L1 superior endplate compression fracture. No acute fracture or dislocation. Soft tissues: Fat-containing umbilical hernia, small in size. Vasculature: Unremarkable. No abdominal aortic aneurysm. Lymph nodes: Unremarkable. No enlarged lymph nodes. IMPRESSION: 1. Nonobstructing 4 mm right kidney stone. No hydronephrosis of either kidney. 2. Gas in urinary bladder suggesting recent instrumentation. Correlate clinically. Electronically signed by: Yuliet Lawrence M.D. 08/01/24 01:08 AM
[2024-08-01] MEDS: WARFARIN SOD 5 MG TAB PO ONE ×2 (01:54→21:44)
--- OUTSIDE RECORDS SUMMARY | 2024-08-01 04:30 | External Medical Summary | Summary of Care ---
Author Name Unknown Organization [facility] Address [address] [place] [address] Phone [phone] Care Team Providers Care [facility] Counselor Name Role Phone Kehinde Mc MD Primary Care Provider [phone] Reason for Visit * Reason Onset Date Comments Protime Testing 07/31/2024 Encounter Details Date Type Department Care Team ([facility] st Contact Info) Description 07/31/2024 Telephone Centralized Clinical Pharmacy Services, Ciera Griffin [address] [place] [address] [place] Richardson [address] Keren Sanchez, [facility] [address] [place] [address] Protime Testing (/) Allergies Active Allergy Reactions Criticality Noted Date Comments Adhesive Tape 04/10/2020 Fentanyl patch Cefepime High 05/03/2021 Other reaction(s): rash Daptomycin High 05/03/2021 Other reaction(s): rash Valproic Acid 01/14/2006 pancreatitis Fentanyl 05/01/2009 patch causes rash to skin--can take IV fentanyl Ibuprofen 12/14/2019 ulcers Iodinated Contrast Media Anaphylaxis High 03/28/2024 Naloxone High 03/15/2020 Shortness of breath, sweating, and "very ill" Other Allergy (See Comments) Neuro complications (Please comment) 05/01/2020 Patient states he had a reaction to a steroid injection to his back- had hallucinations Acetaminophen Other (Please comment) 12/14/2019 Ulcer, pills only IV route no problems documented as of this encounter (statuses as of 07/31/2024) Medications polyethylene glycol 3350 (MIRALAX) 255 gram powderIndications:O bstipation DISSOLVE AND DRINK 1 CAPFUL (17GM) IN LIQUID ONCE DAILY. 527 g 5 09/28/19 19 Active Additional Information Patient not taking.Reported on 03/28/2024 Aspirin 81 MG Tablet Take 1 Tablet by mouth in the morning. Active Lactobacillus (LACTINEX) chewable tablet Take 1 Tablet by mouth in the morning and 1 Tablet at noon and 1 Tablet before bedtime. 04/19/20 22 Active nystatin (NYSTOP) 127736 UNIT/GM powderIndications:C utaneous candidiasis Apply topically to affected area 3 times a day. 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 25 Tab 5 06/05/20 20 Active Additional Information Patient not taking.Reported on 03/28/2024 Ferrous Sulfate 325 (65 Fe) MG Oral Tablet (FEOSOL)Indications :Iron deficiency anemia due to chronic blood loss Take 1 Tab by mouth daily with breakfast. 90 Tab 1 06/20/20 20 Active Buprenorphine HCl 8 MG Sublingual Tablet Sublingual (SUBUTEX) Place 1 Tablet under the tongue. Three times daily Active oxygen IN GAS Use 4 L/min(Oxygen) as directed at bedtime as needed for Shortness of Breath. 1 Each 1 08/30/20 20 Active QC Stool Softener 100 MG Oral Capsule (docusate sodium)Indications: Constipation, unspecified constipation type TAKE ONE CAPSULE BY MOUTH 2 TIMES A DAY 60 Cap 5 09/18/20 20 Active Additional Information Patient not taking.Reported on 03/28/2024 Fluticasone Propionate 93 MCG/ACT Nasal Exhaler SuspensionIndicatio [...] MG Oral TabletIndications:C oronary artery disease involving [place] coronary artery of [place] heart without angina pectoris Take by mouth 400 mg in the morning. 30 Tablet 11 12/11/19 Active Insulin Glargine 100 UNIT/ML Subcutaneous Solution Pen-injector (Lantus) Inject under the skin 50 Units before bedtime. 10 Each 5 03/27/20 Active NovoLOG FlexPen 100 UNIT/ML Subcutaneous Solution Pen-injector (insulin aspart) Inject under the skin 1 Units three times a day with meals . Units as per sliding scale as instructed by provider to cover for steroid coverage when warranted 1 Each 03/27/20 22 Active Ipratropium-Albuter ol 0.5-2.5 (3) MG/3ML Inhalation Solution (Duoneb)Indications :COPD, severity to be determined (HCC),Wheezing Inhale 3 mL via nebulizer in the morning and 3 mL at noon and 3 mL before bedtime. 360 mL 08/10/20 22 Active Fluticasone-Salmete rol 250-50 MCG/ACT [...] daily as needed for Constipation. 30 Capsule 09/29/19 23 Active Spironolactone 25 MG Oral Tablet (Aldactone) Take 1 Tablet by mouth in the morning. In the morning.. 90 Tablet 2 12/11/19 23 Active Folic Acid 1 MG Oral Tablet Take 1 Tablet by mouth in the morning. 90 Tablet 2 04/21/20 23 Active Potassium Chloride Terra ER 20 MEQ Oral Tablet Extended ReleaseIndications: Hypokalemia TAKE ONE TABLET EVERY MORNING AND AT BEDTIME 180 Tablet 2 05/11/20 23 Active Budesonide 0.25 MG/2ML Inhalation Suspension (Pulmicort) Inhale 0.5 mg via nebulizer in the morning and 0.5 mg in the evening. 07/27/20 23 Active predniSONE 10 MG Oral Tablet (Deltasone) Take 1 Tablet by mouth in the morning. Follow taper directions. 08/26/20 23 Active Tamsulosin HCl 0.4 MG Oral Capsule (Flomax) TAKE 2 CAPSULES EVERY MORNING 180 Capsule 08/31/20 23 Active True Metrix Meter w/Device KitIndications:Type 2 diabetes mellitus with hemoglobin A1c goal of less than 8.0% ([facility]) Use 3 times daily as directed 1 Kit 08/31/20 23 Active True Metrix Blood Glucose Test In Vitro Strip (Glucose Blood)Indications:T ype 2 diabetes mellitus with hemoglobin A1c goal of less than 8.0% ([facility]) Use 3 times daily as directed 300 Strip 3 08/31/20 23 Active TRUEplus Lancets 33GIndications:Type 2 diabetes mellitus with hemoglobin A1c goal of less than 8.0% ([facility]) Use 3 times daily as directed 300 Each 3 08/31/20 23 Active BD Swab Single Use Regular Pad Use 3 times daily as directed 300 Each 3 08/31/20 23 Active True Metrix Level 1 Low In Vitro Solution Use as directed 1 Each 08/31/20 23 Active Warfarin Sodium 4 MG Oral Tablet (Coumadin)Indicatio ns:History of pulmonary embolism TAKE 1/2 TO 1 TABLET EVERY DAY DIRECTED BY COUMADIN CLINIC. 180 Tablet 1 11/10/19 24 Active Torsemide 100 MG Oral Tablet (Demadex) Take 1 Tablet by mouth in the morning. 12/31/19 24 Active Bisacodyl 5 MG Oral Tablet Delayed Release (Dulcolax)Indicatio ns:Chronic constipation Take 2 Tablets by mouth daily as needed for Constipation. do not use for over 1 week. Do not cut, crush or chew 12/31/19 24 Active Isosorbide Dinitrate 30 MG Oral TabletIndications:C oronary artery disease involving [place] coronary artery of [place] heart without angina pectoris TAKE 1 TABLET BY MOUTH IN THE MORNING. 30 Tablet 5 04/28/20 24 Active glipiZIDE 10 MG Oral Tablet (Glucotrol)Indicati ons:Diabetes mellitus with nephropathy (HCC) TAKE ONE TABLET BY MOUTH 2 TIMES A DAY 30 MINUTES BEFORE MEALS 180 Tablet 3 /27/20 24 Active Atorvastatin Calcium 80 MG Oral Tablet (Lipitor) TAKE 1 TABLET BY MOUTH IN THE AFTERNOON 90 Tablet 05/16/20 24 Active oxyCODONE HCl 10 MG Oral Tablet (Roxicodone)Indicat ions:Chronic pain of right knee Take 1 Tablet by mouth 2 times a day as needed for Pain, Moderate or Pain, Severe. 30 Tablet 05/29/20 24 Active Cyclobenzaprine HCl 10 MG Oral Tablet (Flexeril)Indicatio ns:Chronic pain syndrome TAKE 1 TABLET TWICE DAILY NEEDED FOR MUSCLE SPASM(S) 60 Tablet 05/30/20 24 Active FreeStyle Js 3 Dimock DeviceIndications:T ype 2 diabetes mellitus with hemoglobin A1c goal of less than 8.0% ([facility]) Use as directed. 1 Each 05/30/20 24 Active FreeStyle Js 3 Sensor Use as directed every 14 days. 6 Each 05/30/20 24 Active Ondansetron HCl 4 MG Oral Tablet (Zofran)Indications :Nausea TAKE 1 TABLET BY MOUTH EVERY 8 HOURS NEEDED NAUSEA 20 Tablet 05/30/20 24 Active DULoxetine HCl 60 MG Oral Capsule Delayed Release Particles (Cymbalta)Indicatio ns:Chronic bilateral low back pain without sciatica,DM type 2 with diabetic peripheral neuropathy (HCC) Take 1 Capsule by mouth in the morning. 90 Capsule 05/30/20 24 Active Gabapentin 600 MG Oral Tablet (Neurontin) Take 1 Tablet by mouth in the morning and 1 Tablet at noon and 1 Tablet before bedtime. 270 Tablet 05/30/20 24 Active Metoprolol Succinate ER 50 MG Oral Tablet Extended Release 24 Hour (toPROL XL)Indications:Freddie nary artery disease involving [place] coronary artery of [place] heart without angina pectoris TAKE 1 & 1/2 TABLETS by mouth 2 TIMES A DAY 90 Tablet 06/26/20 24 Active Famotidine 20 MG Oral Tablet (Pepcid)Indications :Gastroesophageal reflux disease without esophagitis Take 1 Tablet by mouth at bedtime. 30 Tablet 06/26/20 24 Active Furosemide 40 MG Oral Tablet (Lasix) Take 1 Tablet by mouth 2 times a day. 60 Tablet 06/26/20 24 Active Finasteride 5 MG Oral Tablet (Proscar)Indication s:BPH with obstruction/lower urinary tract symptoms TAKE ONE TABLET BY MOUTH EVERY DAY IN THE MORNING 30 Tablet 5 06/26/20 24 Active Pantoprazole Sodium 40 MG Oral Tablet Delayed Release (Protonix) Take 1 Tablet by mouth in the morning. 30 Tablet 5 06/26/20 24 Active Omeprazole 20 MG Oral Capsule Delayed Release (PriLOSEC) TAKE ONE CAPSULE BY MOUTH 1 HOUR BEFORE THE 1ST MEAL OF THE DAY 30 Capsule 5 07/25/20 24 Active documented as of this encounter (statuses as of 07/31/2024) Active Problems Problem Noted Date Diagnosed Date Complicated UTI (urinary tract infection) 2023 Supratherapeutic INR 03/28/2024 Leukocytosis 03/28/2024 Chronic pain of right knee 03/28/2024 Bandemia 10/24/2021 Type 2 diabetes mellitus with foot ulcer (CODE) 06/20/2021 Low testosterone 06/20/2021 Diabetic retinopathy of both eyes associated with type 2 diabetes mellitus 06/05/2021 Overview (06/05/2021): 04/10/2020 Retinal Scan Interpretation: There is mild [...] hemorrhage 10/04/2020 Coronary artery disease invo lving [place] heart without angina pectoris 10/04/2020 COPD, group [...] drug overdose 10/04/2017 Tobacco use disorder 11/21/2015 Hematuria 09/02/2015 Depression with anxiety 07/16/2015 Allergic rhinitis 06/29/2014 Do not give narcotics 11/24/2013 Chronic pain syndrome 12/20/2012 documented as of this encounter (statuses as of 07/31/2024) Resolved Problems Problem Noted Date Diagnosed Date [...] protocol #1 BMI 40.0-44.9, adult 10/04/2017 018 Overview (10/04/2017): bmi= 44.48 10/04/16 Opioid dependence on mainten [...] infarction 10/25/2015 10/04/2017 Excessive caffeine intake 09/02/2015 Calculus of kidney 08/20/2015 8 Overview (08/21/2015): right, [place] [facility] Vitamin D deficiency 01/31/2015 018 Body mass index (BMI) of 40.0-44.9 in adult 01/30/2015 06/24/2017 Overview (12/31/2015): bmi= 42.71 01/30/15 ICD-10 update of inactive [...] goal of less than 7.0% 06/29/2014 09/02/2015 Overview (01/14/2016): ICD-10 update of inactive term Chronic pain [...] weight or BMI > 40) 12/17/2009 10/04/2017 Overview (12/09/2015): Per Obesity Taxonomy ICD-10 update of inactive term Person feigning illness 04/08/200611/2011 Overview (05/31/2009): ER visit Person feigning illness 04/08/200609/20 Overview (02/07/2019): ER visit Syncope and collapse 03/21/2006 013 ADVANCE DIRECTIVE INFORMATION 01/14/2006 01/30/2015 Overview (01/14/2006): No, Advance Directive brochure offered , patient declined. Other musculoskeletal sympto ms referable to limbs(729.89) 11/07/2005 01/30/2015 Diverticulosis of colon 09/29/200501/18 Drug dependence 02/12/2005 09/02/2015 Overview (12/24/2022): ICD-10 update of inactive term Abdominal pain, right upper quadrant 01/30/2015 Acute pancreatitis 5 Overview (05/31/2009): adm x 2 diabetes Closed fracture of lumbar vertebra 01/30/2015 Nausea 01/30/2015 Overview (07/13/2017): ICD-10 update of inactive term Other forms of migraine, wit hout mention of intractable migraine without mention of status migrainosus 01/30/2015 Gastritis and gastroduodenitis 01/30/2015 Esophageal reflux 01/30/2015 Obesity, BMI not known 12/17 Overview (12/17/2009): Per Obesity Taxonomy Anxiety state 01/30/2015 Chest pain 08/22/2012 Abnormal electrocardiogram 0 01/30/2015 Major depression, single episode 01/30/2015 Postconcussion syndrome 01/18 Mixed, or nondependent drug abuse 08/22/2012 Overview (05/31/2009): opiates Lumbago 01/30/2015 Calculus of kidney 5 Hyperglycemia 10/04/2017 Anxiety state 11/12/2015 documented as of this encounter (statuses as of 07/31/2024) Immunizations Name Administration Dates Next Due COVID-19 mRNA, LNP-s, No Pre serve, 2-Dose Series (Measureful) 01/02/2021,12/05/2020 DTP Vaccine 07/19/2017,04/03/2014 Hepatitis B, 20+ yrs 06/05/2020,04/10/202010/11 Pneumococcal Conjugate Vaccine, 7 Valent 013 Pneumococcal Polysaccharide PPV23 (Pneumovax) Seasonal Influenza Virus Vac cine, Unspecified Formulation 08/26/2013 TDAP (age 10 and older)(Boostrix) 06/08/2019 documented as of this encounter Social History Tobacco Use Types Packs/Day Years Used Date Smoking Tobacco: Every Day Cigarettes 2 32 Passive Smoke Exposure: Current Smokeless Tobacco: Current Chew Comments:12/18/20 currently smoking [...] in the Last Year Never true 06/08/2019 Personal Safety Answer Date Recorded Do you feel unsafe or have concerns for your saf ety? Yes 03/28/2024 Do you have concerns for you r family's safety? (Household - for ages 0-17 years) Not on file 03/28/2024 Utilities Answer Date Recorded Do you have trouble paying y our heating, water, or electric bill? No 03/28/2024 Is your family able to pay t he heat, water, or electric bill? (Household - for ages 0-17 years) Not on file 03/28/2024 Does your family have access to good internet? (Household - for ages 0-17 years) Not on file 03/28/2024 Transportation Needs Answer Date Record ed Do you have trouble getting a ride to medical visits or work? (Adult - for ages 18 years and over) Not on file 03/28/2024 Does your family have a hard time getting a ride to doctors visits? (Household - for ages 0-17 years) Not on file 03/28/2024 Has lack of transportation k ept you from medical appointments, meetings, work, or from getting things needed for daily living? Check all that apply. Yes, it has kept me from non-medical meetings, appointments, work, or from getting things that I need;Yes, it has kept me from medical appointments 03/28/2024 Do you (or your family) have trouble finding or paying for a ride (transportation)? (Household - for ages 0-17 years) Not on file 03/28/2024 Housing Stability Answer Date Recorded Do you currently live in a s helter or have no steady place to sleep at night? (Adult - for ages 18 years and over) Not on file 03/28/2024 Do you think you are at risk of becoming homeless? (Adult - for ages 18 years and over) Not on file 03/28/2024 Does your family worry about paying for your home or becoming homeless? (Household - for ages 0-17 years) Not on file 0 03/28/2024 Are you homeless or worried that you might be in the future? No 03/28/2024 Are you (or your family) susan eless or worried that you might be in the future? (Household - for ages 0-17 years) Not on file Food Insecurity Answer Date Recorded Do you need food for this week? No 03/28/2024 Are you able to get enough f ood for your family? (Household - for ages 0-17 years) Not on file 03/28/2024 Does your family need food t his week? (Household - for ages 0-17 years) Not on file 03/28/2024 Do you always have enough fo od for your family? (Household - for ages 0-17 years) Not on file 03/28/2024 Sex and Gender Information Value Date Recorded Sex Assigned at Male 02/07/2019 10:56 AM EDT Legal Sex Male 6:03 AM EST Gender Identity Male 02/07/2019 10:56 AM EDT Sexual Orientation Straight 02/07/2019 10 :56 AM EDT Occupation Industry Job Start Date Job End Date disabled Not on file Not on file Not on file documented as of this encounter Functional Status * Are you deaf or do you have serious difficulty hearing? Answer Date of Assessment Author No 03/28/2024 9:07 PM Janice Henry RN * Are you blind or do you have serious difficulty seeing, even when wearing glasses? Answer Date of Assessment Author No 03/28/2024 9:07 PM Janice Henry, ALEXANDER * Do you have serious difficulty walking or climbing stairs? (5 years old or older) Answer Date of Assessment Author Yes 03/28/2024 9:07 PM Janice Henry RN * Do you have difficulty dressing or bathing? (5 years old or older) Answer Date of Assessment Author Yes 03/28/2024 9:07 PM Janice eHnry, ALEXANDER * Because of a physical, mental, or emotional condition, do you have difficulty doing errands alone such as visiting a doctors office or shopping? (15 years old or older) Answer Date of Assessment Author Yes 03/28/2024 9:07 PM Janice Henry RN documented as of this encounter Mental Status * Because of a physical, mental, or emotional condition, do you have serious difficulty concentrating, remembering, or making decisions? (5 years old or older) Answer Entry Date Author No 03/28/2024 9:07 PM EDT Janice Tanner RN documented in this encounter Miscellaneous Notes * Telephone Encounter - Keren Sanchez RPh - 07/31/2024 9:48 AM EST PT/INR order signed Keren Sanchez Rph, Pharm.D. Clinical Pharmacist Centralized Clinical [facility]acy Services ([facility]) [phone] 07/31/2024,9:48 AM documented in this encounter Plan of Treatment Upcoming Encounters Date Type Department Care Team (Late st Contact Info) Description 08/01/2024 7:05 AM EST Laboratory Lab Mobile Phlebotomy [facility] [address] [place] [address] [facility] Mobile Home Draw [address] [place] [address] 08/02/2024 6:00 AM EST Anticoagulation Centralized Clinical Pharmacy Services, Ciera Griffin [address] [place] [address] [place] [address] [place] [address] Scheduled Orders Name Type Priority Associated Diagnoses Orde r Schedule PT INR Lab Routine Anticoagulation management encounter Other, Please specify in Comments field for 26 Occurrences starting 07/31/2024 until 07/31/2025 Health Maintenance Due Date Last Done Comments DISCUSS TOBACCO CESSATION (REFER TO SMARTSET #2111) 1970 HIV Screening 1985 Pneumococcal Vaccine: Pediatrics (0 to 5 Years) and At-Risk Patients (6 to 64 Years) (2 of 2 - PCV) 05/22/2010 05/22/2009 Cologuard 2015 Fecal Occult Blood Test 2015 Sigmoidoscopy 2015 *ADVANCE DIRECTIVE NOT ON FILE 02/03/2020 Lung Cancer Screening 2020 02/10/2019 , 07/19/2017, 05/09/2017, Additional history exists Zoster Vaccines (1 of 2) 2020 Hepatitis B Vaccine (3 of 3 - 19+ 3-dose series) 10/11/2020 06/05/2020, 04/10/2020 Depression Monitoring 05/01/2021 05/01/2020 Diabetic Eye Exam 11/19/2021 11/19/2020, 04/10/2020 Colonoscopy 12/09/2023 12/08/2013, 07/26/2013 Colorectal Cancer Screening 12/09/2023 COVID-19 Vaccine (3 - 2023- season) 2024 01/02/2021, 12/05/2020 Influenza Vaccine (FLU shot) (#1) 2024 08/26/2013 HbA1c 11/15/2024 05/15/2024, 07/0 04/2024, 03/19/2022, Additional history exists Diabetic Foot Exam 03/28/2025 03/28/2024, 0 12/14/2019, 09/02/2015, Additional history exists O2 ASSESSMENT COMPLETED IN PAST YEAR FOR COPD 04/04/2025 04/04/2024 GFR 05/15/2025 05/15/2024, 071 02/2024, 04/03/2024, Additional history exists Albumin/Creatinine Ratio 05/29/2025 05/29/2024, 03/21 DTap/Tdap Vaccines (4 - Td or Tdap) 06/08/2029 06/08/2019, 07/19/2017, 04/03/2014 Alpha-1 Antitrypsin Completed 12/16/2021 HPV (Gardasil) Vaccine Aged Out No lo nger eligible based on patient's age to complete this topic MENINGOCOCCAL (MENACTRA/MENVEO) Aged Out No longer eligible based on patient's age to complete this topic documented as of this encounter Medical Devices Implanted Type Area Associate Store Director Device Identifier Shelf Expiration Date Model / Serial / Lot Tube Flex 3.0x2.5 [id number] - [id number] Implanted:Qty: 1 on 12/07/2014 by Juancarlos Trinidad MD at [facility] Left: Finger [employer]ON : ORTHOPAEDICS 11/18/2015 [id number] / / [id number] documented as of this encounter Visit Diagnoses Diagnosis Anticoagulation management encounter- Primary Encounter for therapeutic drug monitoring documented in this encounter Advance Directives * Full Code (Latest Code Status on File) Date Activated Date Inactivated Comments 03/28/2024 9:05 PM 04/04/2024 7:27 PM This order re flects the patients wishes and were consensually agreed upon. Question Answer Comments Discussion of Advance Directives occurred with: Patient Does the patient have a Living Will? No Does the patient have Health Care Power of Attor kenia? No * Full Code Date Activated Date Inactivated Comments 01/17/2020 3:57 [...] (no specific identity) Health Care Power of Irrigation Manager Care Teams [facility] Counselor Relationship Specialty Start Date End Date Kehinde Mc MD [address] [place] [address] PCP - General Internal Medicine 03/28/24 documented as of this encounter
--- OUTSIDE RECORDS SUMMARY | 2024-08-01 04:30 | External Medical Summary | Summary of Care ---
Author Name Unknown Organization [facility] Address [address] [place] [address] Phone [phone] Care Team Providers Care Manager Express Name Role Phone Kehinde Mc MD Primary Care Provider [phone] Reason for Visit * Reason Onset Date Comments Referral 07/27/2024 [facility] Encounter Details Date Type Department Care Team ([facility] st Contact Info) Description 07/27/2024 Telephone Centralized Clinical Pharmacy Services, Ciera Griffin [address] [place] [address] A[place]LIA Richardson [address] [facility] [address], [place] [id number] Referral ([facility]) Allergies Active Allergy Reactions Criticality Noted Date [...] as of this encounter (statuses as of 07/27/2024) Medications Medication Sig Dispensed Refills Start Date End Date Status polyethylene glycol 3350 (MIRALAX) 255 gram powderIndications:Obs tipation DISSOLVE AND DRINK 1 CAPFUL (17GM) IN LIQUID ONCE DAILY. 527 g 5 09/28/2018 Active Additional Information Patient not taking.Reported on 03/28/2024 Aspirin 81 MG Tablet Take 1 Tablet by mouth in the morning. Active Lactobacillus (LACTINEX) chewable tablet Take 1 Tablet by mouth in the morning and 1 Tablet at noon and 1 Tablet before bedtime. 04/19/2022 Active nystatin (NYSTOP) 204049 UNIT/GM powderIndications:Cut aneous candidiasis Apply topically to affected area 3 times a day. 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 25 Tab 5 06/05/2020 Active Additional Information Patient not taking.Reported on [...] Cap 5 09/18/2020 Active Additional Information Patient not taking.Reported on 03/28/2024 Fluticasone Propionate 93 MCG/ACT Nasal Exhaler SuspensionIndications [...] MG Oral TabletIndications:Cor onary artery disease involving hoopa coronary artery of hoopa heart without angina pectoris Take by mouth [...] coverage when warranted 1 Each 03/27/2022 Active Ipratropium-Albuterol 0.5-2.5 (3) MG/3ML Inhalation Solution (Duoneb)Indications:C OPD, severity to be determined (HCC),Wheezing Inhale 3 mL via nebulizer in the morning and 3 mL at noon and 3 mL before bedtime. 360 mL 08/10/2022 Active Fluticasone-Salmetero l 250-50 MCG/ACT Inhalation [...] needed for Constipation. 30 Capsule 09/29/2022 Active Spironolactone 25 MG Oral Tablet (Aldactone) Take 1 Tablet by mouth in the morning. In the morning.. 90 Tablet 2 12/10/2022 Active Folic Acid 1 MG Oral Tablet Take 1 Tablet by mouth in the morning. 90 Tablet 2 04/21/2023 Active Potassium Chloride Terra ER 20 MEQ Oral Tablet Extended ReleaseIndications:Hy pokalemia TAKE ONE TABLET EVERY MORNING AND AT BEDTIME 180 Tablet 2 05/11/2023 Active Budesonide 0.25 MG/2ML Inhalation Suspension (Pulmicort) [...] Blood Glucose Test In Vitro Strip (Glucose Blood)Indications:Typ e 2 [...] Use as directed 1 Each 08/31/2023 Active Warfarin Sodium 4 MG Oral Tablet (Coumadin)Indications :History of pulmonary embolism TAKE 1/2 TO 1 TABLET EVERY DAY DIRECTED BY COUMADIN CLINIC. 180 Tablet 1 11/10/2023 Active Torsemide 100 MG Oral Tablet (Demadex) Take 1 Tablet by mouth in the morning. 12/31/2023 Active Bisacodyl 5 MG Oral Tablet Delayed Release (Dulcolax)Indications :Chronic constipation Take 2 Tablets by mouth daily as needed for Constipation. do not use for over 1 week. Do not cut, crush or chew 12/31/2023 Active Isosorbide Dinitrate 30 MG Oral TabletIndications:Cor onary artery disease involving hoopa coronary artery of hoopa heart without angina pectoris TAKE 1 TABLET BY MOUTH IN THE MORNING. 30 Tablet 5 04/28/2024 Active glipiZIDE 10 MG Oral Tablet (Glucotrol)Indication s:Diabetes mellitus with nephropathy (HCC) TAKE ONE TABLET BY MOUTH 2 TIMES A DAY 30 MINUTES BEFORE MEALS 180 Tablet 3 05/16/2024 Active Atorvastatin Calcium 80 MG Oral Tablet (Lipitor) TAKE 1 TABLET BY MOUTH IN THE AFTERNOON 90 Tablet 05/16/2024 Active oxyCODONE HCl 10 MG Oral Tablet (Roxicodone)Indicatio ns:Chronic pain of right knee Take 1 Tablet by mouth 2 times a day as needed for Pain, Moderate or Pain, Severe. 30 Tablet 05/29/2024 Active Cyclobenzaprine HCl 10 MG Oral Tablet (Flexeril)Indications :Chronic pain syndrome TAKE 1 TABLET TWICE DAILY NEEDED FOR MUSCLE SPASM(S) 60 Tablet 05/30/2024 Active FreeStyle Js 3 [place] DeviceIndications:Typ e 2 diabetes mellitus with hemoglobin A1c goal of less than 8.0% ([facility]) Use as directed. 1 Each 05/30/2024 Active FreeStyle Js 3 Sensor Use as directed every 14 days. 6 Each 05/30/2024 Active Ondansetron HCl 4 MG Oral Tablet (Zofran)Indications:N ausea TAKE 1 TABLET BY MOUTH EVERY 8 HOURS NEEDED NAUSEA 20 Tablet 05/30/2024 Active DULoxetine HCl 60 MG Oral Capsule Delayed Release Particles (Cymbalta)Indications :Chronic bilateral low back pain without sciatica,DM type 2 with diabetic peripheral neuropathy (HCC) Take 1 Capsule by mouth in the morning. 90 Capsule 05/30/2024 Active Gabapentin 600 MG Oral Tablet (Neurontin) Take 1 Tablet by mouth in the morning and 1 Tablet at noon and 1 Tablet before bedtime. 270 Tablet 05/30/2024 Active Metoprolol Succinate ER 50 MG Oral Tablet Extended Release 24 Hour (toPROL XL)Indications:Harman ry artery disease involving hoopa coronary artery of hoopa heart without angina pectoris TAKE 1 & 1/2 TABLETS by mouth 2 TIMES A DAY 90 Tablet 06/26/2024 Active Famotidine 20 MG Oral Tablet (Pepcid)Indications:G astroesophageal reflux disease without esophagitis Take 1 Tablet by mouth at bedtime. 30 Tablet 06/26/2024 Active Furosemide 40 MG Oral Tablet (Lasix) Take 1 Tablet by mouth 2 times a day. 60 Tablet 5 06/26/2024 Active Finasteride 5 MG Oral Tablet (Proscar)Indications: BPH with obstruction/lower urinary tract symptoms TAKE ONE TABLET BY MOUTH EVERY DAY IN THE MORNING 30 Tablet 5 06/26/2024 Active Pantoprazole Sodium 40 MG Oral Tablet Delayed Release (Protonix) Take 1 Tablet by mouth in the morning. 30 Tablet 5 06/26/2024 Active Nitrofurantoin Monohyd Macro 100 MG Oral Capsule (Macrobid) Take 1 Capsule by mouth in the morning and 1 Capsule before bedtime. Do all this for 7 days. With food until gone. 14 Capsule 07/21/2024 Active Omeprazole 20 MG Oral Capsule Delayed Release (PriLOSEC) TAKE ONE CAPSULE BY MOUTH 1 HOUR BEFORE THE 1ST MEAL OF THE DAY 30 Capsule 5 07/25/2024 Active documented as of this encounter (statuses as of 07/27/2024) Active Problems Problem Noted Date Diagnosed Date [...] hemorrhage 10/04/2020 Coronary artery disease invo lving hoopa heart without angina pectoris 10/04/2020 COPD, group [...] as of this encounter (statuses as of 07/27/2024) Resolved Problems Problem Noted Date Diagnosed Date [...] intake 09/02/2015 Calculus of kidney 08/20/2015 8 Overview: right, [place] Vitamin D deficiency 01/31/2015 018 Body [...] as of this encounter (statuses as of 07/27/2024) Immunizations Name Administration Dates Next Due COVID-19 mRNA, LNP-s, No Pre serve, 2-Dose Series ([employer]) 01/02/2021,12/05/2020 DTP Vaccine 07/19/2017,04/03/2014 Hepatitis B, 20+ [...] you have serious difficulty h earing? No 03/28/2024 Are you blind or do you have serious difficulty seeing, even when wearing glasses? No 03/28/2024 Do you have serious difficul ty walking or climbing stairs? (5 years old or older) Yes 03/28/2024 Do you have difficulty dress ing or bathing? (5 years old or older) Yes 03/28/2024 Because of a physical, menta l, or emotional condition, do you have difficulty doing errands alone such as visiting a doctor s office or shopping? (15 years old or older) Yes 03/28/20 Cognitive Status Response Date of Assessm ent Because of a physical, menta l, or emotional condition, do you have serious difficulty concentrating, remembering, or making decisions? (5 years old or older) No 03/28/2024 documented as of this encounter Miscellaneous Notes * Telephone Encounter - Alysa Srinivasan PHARM Tech - 07/27/2024 2:38 PM EST Umesh has not contacted the clinic to schedule/reschedule an appointment for diabetes management per referral from PCP despite multiple attempts to do so by our team. Patient is discharged from [facility] services at this time. documented in this encounter Plan of Treatment Upcoming Encounters Date Type Department Care Team (Late st Contact Info) Description 08/01/2024 7:05 AM EST Laboratory Lab Mobile Phlebotomy [facility] [address] [place] [address] [facility], [facility] Mobile Home Draw [address] [facility] [place] [address] 08/02/2024 6:00 AM EST Anticoagulation Centralized Clinical Pharmacy Services, Ciera Griffin [address] [place] [address] A[place] Richardson [address] [facility], [address] [place] [address] Health Maintenance Due Date Last Done Comments DISCUSS TOBACCO CESSATION (REFER TO SMARTSET #[id number]) 1970 HIV Screening 1985 Pneumococcal Vaccine: Pediatrics [...] 07/26/2013 Colorectal Cancer Screening 12/09/2023 COVID-19 Vaccine ( season) 2024 01/02/2021, 12/05/2020 Influenza Vaccine (FLU shot) (#1) 2024 08/26/2013 HbA1c 11/15/2024 05/15/2024, 07/0 04/2024, 03/19/2022, Additional history exists Diabetic Foot Exam 03/28/2025 03/28/2024, 0 12/14/2019, 09/02/2015, Additional history exists O2 ASSESSMENT COMPLETED IN PAST YEAR FOR COPD 04/04/2025 04/04/2024 GFR 05/15/2025 05/15/2024, 03/20, 04/03/2024, Additional history exists Albumin/Creatinine Ratio 05/29/2025 [...] this encounter Medical Devices Implanted Type Area Network Management Specialist Device Identifier Shelf Expiration Date Model / Serial / Lot Tube Flex 3.0x2.5 [id number] - [id number] Implanted:Qty: 1 on 12/07/2014 by Juancarlos Trinidad MD at [facility] Left: Finger [employer] : ORTHOPAEDICS 11/18/2015 [id number] / / [id number] documented as of this encounter Advance Directives * Full Code [...] (no specific identity) Health Care Power of Palliative Care Physician Care Teams Manager Express Relationship Specialty Start Date End Date Kehinde Mc MD [address] [place] [address] PCP - General Internal Medicine 03/28/24 documented as of this encounter
--- OUTSIDE RECORDS SUMMARY | 2024-08-01 04:31 | External Medical Summary | Summary of Care ---
Author Name Unknown Organization [facility] Address [address] [place] [address] Phone [phone] Care Team Providers Care Licensing Court Magistrate Name Role Phone Kehinde Mc MD Primary Care Provider [phone] Reason for Visit * Reason Onset Date Comments Advice 07/20/2024 Encounter Details Date Type Department Care Team ([facility] st Contact Info) Description 07/20/[address] [facility] [address] [place] [address] Kehinde Mc MD [address] [place] [address] Advice Allergies Active Allergy Reactions Criticality Noted [...] as of this encounter (statuses as of 07/21/2024) Medications Medication Sig Dispensed Refills Start Date [...] Tablet before bedtime. 04/19/2022 Active nystatin (NYSTOP) 503431 UNIT/GM powderIndications:Cut aneous candidiasis Apply topically to [...] (HCC),COPD, group D, by GOLD 2017 classification ([facility]) USE 2 PUFFS BY MOUTH EVERY 4 HOURS NEEDED SHORT OF BREATH 6.7 g 5 11/24/2021 Active Magnesium Oxide 400 (241.3 Mg) MG Oral TabletIndications:Cor onary artery disease involving atka coronary artery of [...] [place]) Use 3 times daily as directed 300 Strip 3 08/31/2023 Active TRUEplus Lancets 33GIndications:Type 2 diabetes mellitus with hemoglobin A1c goal of less than 8.0% ([facility]) Use 3 times daily as directed 300 [...] MG Oral TabletIndications:Cor onary artery disease involving atka coronary artery of atka heart without angina pectoris TAKE 1 TABLET BY MOUTH IN THE MORNING. 30 Tablet 5 04/28/2024 Active glipiZIDE 10 MG Oral Tablet (Glucotrol)Indication s:Diabetes mellitus with nephropathy (HCC) TAKE ONE TABLET BY MOUTH 2 TIMES A DAY 30 MINUTES BEFORE MEALS 180 Tablet 3 05/16/2024 Active Atorvastatin Calcium 80 MG Oral Tablet (Lipitor) TAKE 1 TABLET BY MOUTH IN THE AFTERNOON 90 Tablet 3 05/16/2024 Active oxyCODONE HCl 10 MG Oral Tablet (Roxicodone)Indicatio ns:Chronic pain of right knee Take 1 Tablet by mouth 2 times a day as needed for Pain, Moderate or Pain, Severe. 30 Tablet 05/29/2024 Active Cyclobenzaprine HCl 10 MG Oral Tablet (Flexeril)Indications :Chronic pain syndrome TAKE 1 TABLET TWICE DAILY NEEDED FOR MUSCLE SPASM(S) 60 Tablet 05/30/2024 Active Omeprazole 20 MG Oral Capsule Delayed Release (PriLOSEC) TAKE ONE CAPSULE BY MOUTH 1 HOUR BEFORE THE 1ST MEAL OF THE DAY 30 Capsule 05/30/2024 Active FreeStyle Js 3 [place] DeviceIndications:Typ e 2 diabetes mellitus with hemoglobin A1c goal of less than 8.0% ([facility]) Use as directed. 1 Each 05/30/2024 Active FreeStyle Js 3 Sensor Use as directed every 14 days. 6 Each 3 05/30/2024 Active Ondansetron HCl 4 MG Oral [...] Hour (toPROL XL)Indications:Harman ry artery disease involving atka coronary artery of [...] mouth 2 times a day. 60 Tablet 06/26/2024 Active Finasteride 5 MG Oral Tablet [...] food until gone. 14 Capsule 07/21/2024 Active documented as of this encounter (statuses as of 07/21/2024) Active Problems Problem Noted Date Diagnosed Date [...] as of this encounter (statuses as of 07/21/2024) Resolved Problems Problem Noted Date Diagnosed Date [...] of kidney 08/20/2015 8 Overview: right, [place] CT Vitamin D deficiency 01/31/2015 018 Body [...] as of this encounter (statuses as of 07/21/2024) Immunizations Name Administration Dates Next Due COVID-19 mRNA, LNP-s, No Pre serve, 2-Dose Series ([employer]) 01/02/2021,12/05/2020 DTP Vaccine 07/19/2017,04/03/2014 Hepatitis B, 20+ [...] encounter Miscellaneous Notes * Telephone Encounter - Ama Patel LPN - 07/21/2024 1:30 PM EDT Patient returned call. Informed of message. Verbalized understanding. * Telephone Encounter - Doreen Perez LPN - 07/21/2024 12:12 PM EDT Attempted to call patient, no answer lm that I was calling in regards to urine culture results and asked for a call back. Attempted to call Sandrita as well with no answer. If either would call back please inform them of the information from Dr. Mc. * Addendum Note - Kehinde Mc MD - 07/21/2024 12:04 PM EDTAddended by: KEHINDE MC on: 07/21/2024 12:04 PM Modules accepted: Orders * Telephone Encounter - Kehinde Mc MD - 07/21/2024 12:03 PM EDT Ordered macrobid for 7 days * Telephone Encounter - Droeen Perez LPN - 07/21/2024 10:20 AM EDT Appears the culture is completed. * Telephone Encounter - Kehinde Mc MD - 07/21/2024 8:28 AM EDT Urine culture sensitivity is pending Will wait for it It should come out soon today * Telephone Encounter - Doreen Perez LPN - 07/21/2024 8:09 AM EDT Please advise, thank you! * Telephone Encounter - Marielena Fitzpatrick OSA - 07/20/2024 4:30 PM EDT Reason for patient's call: ALEXANDER Remy from [facility] called would like to know if provider reviewed patient's urinalysis and if patient will be starting antibiotics.Unable to reach DNL. Sandrita requesting acall back. documented in this encounter Plan of Treatment Upcoming Encounters Date Type Department Care Team (Late st Contact Info) Description 07/25/2024 7:00 AM EST Laboratory Lab Mobile Phlebotomy [facility] [address] [place] [address] [facility], [facility] Mobile Home Draw [address] [place] [address] 07/26/2024 6:00 AM EST Anticoagulation Centralized Clinical Pharmacy Services, Ciera Griffin [address] [place] [address] [place] Richardson [address] [place] [address] Health Maintenance Due Date Last Done Comments DISCUSS TOBACCO CESSATION (REFER TO SMARTSET #6196) 1970 HIV Screening 1985 Pneumococcal Vaccine: Pediatrics [...] this encounter Medical Devices Implanted Type Area [employer] Device Identifier Shelf Expiration Date Model / Serial / Lot Tube Flex 3.0x2.5 [id number] - [id number] Implanted:Qty: 1 on 12/07/2014 by Juancarlos Trinidad MD at [facility] Left: Finger [employer] : ORTHOPAEDICS 11/18/2015 [id number] / / [id number] documented as of this encounter Advance Directives [...] (no specific identity) Health Care Power of Dentistry Professor Care Teams Licensing Court Magistrate Relationship Specialty Start Date End Date Kehinde Mc MD [address] [place] [address] PCP - General Internal Medicine 03/28/24 documented as of this encounter
--- OUTSIDE RECORDS SUMMARY | 2024-08-01 04:31 | External Medical Summary | Summary of Care ---
Author Name Unknown Organization [facility] Address [address] [place] [address] Phone [phone] Care Team Providers Care Church Business Administrator Name Role Phone Kehinde Mc MD Primary Care Provider [phone] Reason for Visit * Reason Onset Date Comments Medication Refill 07/24/2024 Encounter Details Date Type Department Care Team (Late st Contact Info) Description 07/24/2024 Refill [facility] [address] [place] [address] Kehinde Mc MD [address] [place] [address] Allergies Active Allergy Reactions Criticality Noted Date [...] as of this encounter (statuses as of 07/25/2024) Medications Medication Sig Dispensed Refills Start Date End Date Status polyethylene glycol 3350 (MIRALAX) 255 gram powderIndications:Ob stipation DISSOLVE AND DRINK 1 CAPFUL (17GM) IN LIQUID ONCE DAILY. 527 g 5 9 Active Additional Information Patient not taking.Reported on 03/28/2024 Aspirin 81 MG Tablet Take 1 Tablet by mouth in the morning. Active Lactobacillus (LACTINEX) chewable tablet Take 1 Tablet by mouth in the morning and 1 Tablet at noon and 1 Tablet before bedtime. 2 Active nystatin (NYSTOP) 550222 UNIT/GM powderIndications:Cu taneous candidiasis Apply topically to affected area 3 times a day. 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 25 Tab 5 0 Active Additional Information Patient not taking.Reported on [...] Cap 5 0 Active Additional Information Patient not taking.Reported on 03/28/2024 Fluticasone Propionate 93 MCG/ACT Nasal Exhaler SuspensionIndication [...] MG Oral TabletIndications:Co ronary artery disease involving [place] coronary artery of [place] heart without angina pectoris Take by mouth [...] coverage when warranted 1 Each 2 Active Ipratropium-Albutero l 0.5-2.5 (3) MG/3ML Inhalation Solution (Duoneb)Indications: COPD, severity to be determined (HCC),Wheezing Inhale 3 mL via nebulizer in the morning and 3 mL at noon and 3 mL before bedtime. 360 mL 2 Active Fluticasone-Salmeter ol 250-50 MCG/ACT Inhalation [...] needed for Constipation. 30 Capsule 3 Active Spironolactone 25 MG Oral Tablet (Aldactone) Take 1 Tablet by mouth in the morning. In the morning.. 90 Tablet 2 3 Active Folic Acid 1 MG Oral Tablet Take 1 Tablet by mouth in the morning. 90 Tablet 2 3 Active Potassium Chloride Terra ER 20 MEQ Oral Tablet Extended ReleaseIndications:H ypokalemia TAKE ONE TABLET EVERY MORNING AND AT BEDTIME 180 Tablet 2 3 Active Budesonide 0.25 MG/2ML Inhalation Suspension [...] of less than 8.0% ([facility]) Use 3 times daily as directed 1 Kit 3 Active True Metrix Blood Glucose Test In Vitro Strip (Glucose Blood)Indications:Ty pe 2 diabetes mellitus with hemoglobin A1c goal of less than 8.0% ([facility]) Use 3 times daily as directed 300 Strip 3 3 Active TRUEplus Lancets 33GIndications:Type 2 diabetes mellitus with hemoglobin A1c goal of less than 8.0% ([facility]) Use 3 times daily as directed 300 Each 3 3 Active BD Swab Single Use Regular Pad Use 3 times daily as directed 300 Each 3 3 Active True Metrix Level 1 Low In Vitro Solution Use as directed 1 Each 3 Active Warfarin Sodium 4 MG Oral Tablet (Coumadin)Indication s:History of pulmonary embolism TAKE 1/2 TO 1 TABLET EVERY DAY DIRECTED BY COUMADIN CLINIC. 180 Tablet 1 4 Active Torsemide 100 MG Oral Tablet (Demadex) Take 1 Tablet by mouth in the morning. 4 Active Bisacodyl 5 MG Oral Tablet Delayed Release (Dulcolax)Indication s:Chronic constipation Take 2 Tablets by mouth daily as needed for Constipation. do not use for over 1 week. Do not cut, crush or chew 4 Active Isosorbide Dinitrate 30 MG Oral TabletIndications:Co ronary artery disease involving [place] coronary artery of [place] heart without angina pectoris TAKE 1 TABLET BY MOUTH IN THE MORNING. 30 Tablet 5 4 Active glipiZIDE 10 MG Oral Tablet (Glucotrol)Indicatio ns:Diabetes mellitus with nephropathy (HCC) TAKE ONE TABLET BY MOUTH 2 TIMES A DAY 30 MINUTES BEFORE MEALS 180 Tablet 3 4 Active Atorvastatin Calcium 80 MG Oral Tablet (Lipitor) TAKE 1 TABLET BY MOUTH IN THE AFTERNOON 90 Tablet 3 4 Active oxyCODONE HCl 10 MG Oral Tablet (Roxicodone)Indicati ons:Chronic pain of right knee Take 1 Tablet by mouth 2 times a day as needed for Pain, Moderate or Pain, Severe. 30 Tablet 4 Active Cyclobenzaprine HCl 10 MG Oral Tablet (Flexeril)Indication s:Chronic pain syndrome TAKE 1 TABLET TWICE DAILY NEEDED FOR MUSCLE SPASM(S) 60 Tablet 5 4 Active FreeStyle Js 3 [place] DeviceIndications:Ty pe 2 diabetes mellitus with hemoglobin A1c goal of less than 8.0% ([facility]) Use as directed. 1 Each 4 Active FreeStyle Js 3 Sensor Use as directed every 14 days. 6 Each 3 4 Active Ondansetron HCl 4 MG Oral Tablet (Zofran)Indications: Nausea TAKE 1 TABLET BY MOUTH EVERY 8 HOURS NEEDED NAUSEA 20 Tablet 1 4 Active DULoxetine HCl 60 MG Oral Capsule Delayed Release Particles (Cymbalta)Indication s:Chronic bilateral low back pain without sciatica,DM type 2 with diabetic peripheral neuropathy (HCC) Take 1 Capsule by mouth in the morning. 90 Capsule 1 4 Active Gabapentin 600 MG Oral Tablet (Neurontin) Take 1 Tablet by mouth in the morning and 1 Tablet at noon and 1 Tablet before bedtime. 270 Tablet 1 4 Active Metoprolol Succinate ER 50 MG Oral Tablet Extended Release 24 Hour (toPROL XL)Indications:Coron uziel artery disease involving [place] coronary artery of [place] heart without angina pectoris TAKE 1 & 1/2 TABLETS by mouth 2 TIMES A DAY 90 Tablet 5 4 Active Famotidine 20 MG Oral Tablet (Pepcid)Indications: Gastroesophageal reflux disease without esophagitis Take 1 Tablet by mouth at bedtime. 30 Tablet 5 4 Active Furosemide 40 MG Oral Tablet (Lasix) Take 1 Tablet by mouth 2 times a day. 60 Tablet 5 4 Active Finasteride 5 MG Oral Tablet (Proscar)Indications :BPH with obstruction/lower urinary tract symptoms TAKE ONE TABLET BY MOUTH EVERY DAY IN THE MORNING 30 Tablet 5 4 Active Pantoprazole Sodium 40 MG Oral Tablet Delayed Release (Protonix) Take 1 Tablet by mouth in the morning. 30 Tablet 5 4 Active Nitrofurantoin Monohyd Macro 100 MG Oral Capsule (Macrobid) Take 1 Capsule by mouth in the morning and 1 Capsule before bedtime. Do all this for 7 days. With food until gone. 14 Capsule 4 07/28/20 24 Active Omeprazole 20 MG Oral Capsule Delayed Release (PriLOSEC) TAKE ONE CAPSULE BY MOUTH 1 HOUR BEFORE THE 1ST MEAL OF THE DAY 30 Capsule 5 4 Active Omeprazole 20 MG Oral Capsule Delayed Release (PriLOSEC) TAKE ONE CAPSULE BY MOUTH 1 HOUR BEFORE THE 1ST MEAL OF THE DAY 30 Capsule 5 4 07/24/20 24 Discontinu ed(Refill) documented as of this encounter (statuses as of 07/25/2024) Active Problems Problem Noted Date Diagnosed Date [...] hemorrhage 10/04/2020 Coronary artery disease invo lving [place] heart without angina pectoris 10/04/2020 COPD, group [...] as of this encounter (statuses as of 07/25/2024) Resolved Problems Problem Noted Date Diagnosed Date [...] Calculus of kidney 08/20/2015 8 Overview: right, [place] CT Vitamin D deficiency 01/31/2015 018 Body [...] as of this encounter (statuses as of 07/25/2024) Immunizations Name Administration Dates Next Due COVID-19 mRNA, LNP-s, No Pre serve, 2-Dose Series (Cinnamon) 01/02/2021,12/05/2020 DTP Vaccine 07/19/2017,04/03/2014 Hepatitis B, 20+ [...] encounter Miscellaneous Notes * Telephone Encounter - Kehinde Mc MD - 07/25/2024 6:42 AM ESTSigned Prescriptions: Disp Refills Omeprazole 20 MG Oral Capsule Delayed Rele*30 Cap*5 Sig: TAKE ONE CAPSULE BY MOUTH 1 HOUR BEFORE THE 1ST MEAL OF THE DAY Authorizing Provider: KEHINDE MC * Telephone Encounter - Romulo Campbell, DARIA - 07/24/2024 3:25 PM EST Did you pend patient's preferred pharmacy and medication before forwarding?yes Pharmacy: [id number] [address] [facility] Pending Prescriptions: Disp Refills Omeprazole 20 MG Oral Capsule Delayed Rel*30 Cap*5 Sig: TAKE ONE CAPSULE BY MOUTH 1 HOUR BEFORE THE 1ST MEAL OF THE DAY Last Visit: 03/28/2024 (in office), 05/30/2024 (telemedicine) Next Visit: Visit date not found If no future appointments scheduled, and last appointment is greater than a year ago, please schedule patient for a follow-up appointment Last date the medication was ordered: 05/30/24 90 day request Is this request for a controlled substance?No Urine Drug Screen: Results for orders placed or performed in visit on 03/28/24 TOXICOLOGY, URINE SCREEN W/ CONFIRMATION Result Value Amphetamines Screen, U Negative Benzodiazepines Screen, U Negative Cannabinoids Screen, U Negative Cocaine Metabolite Screen, U Negative Fentanyl Screen, U Negative Hydrocodone Screen, U Negative Methadone Metabolite Screen, U Negative Morphine/Codeine Screen, U Negative Oxycodone Screen, U Positive (A) Narrative Cutoff Concentrations: Drug Level Amphetamines 500 ng/mL Benzodiazepines 100 ng/mL Cannabinoids 50 ng/mL Cocaine Metabolite 150 ng/mL Fentanyl 1 ng/mL Hydrocodone / Hydromorphone 300 ng/mL Methadone Metabolite 100 ng/mL Morphine / Codeine 300 ng/mL Oxycodone / Oxymorphone 100 ng/mL Screening results are presumptive and can only be used for medical purposes. Positive screening results are reflexed to confirmatory testing. *Note: Due to a large number of results and/or encounters for the requested time period, some results have not been displayed. A complete set of results can be found in Results Review. Patient Phone Numbers Labs: Lab Results Component Value Date/Time CREAT 1.0 05/15/2024 09:13 AM CREAT 1.05 08/05/2022 12:00 AM CREAT 1.1 10/15/2020 08:46 AM POTASSIUM 4.8 05/15/2024 09:13 AM POTASSIUM 3.7 08/05/2022 12:00 AM POTASSIUM 3.7 10/15/2020 08:46 AM TSH 1.51 12/10/2020 09:50 AM TSH 1.45 10/08/2020 08:05 AM LDL 59 05/15/2024 09:13 AM LDL 71 12/08/2022 08:38 AM LDL 95 10/08/2020 08:05 AM LDL NOT APPLICABLE 10/08/2020 08:05 AM LDLCALC 106 03/17/2016 12:00 AM ALT 12 05/15/2024 09:13 AM ALT 23 10/08/2020 08:05 AM HGBA1C 9.4 (H) 05/15/2024 09:13 AM HGBA1C 8.8 (H) 10/08/2020 08:05 AM documented in this encounter Plan of Treatment Upcoming Encounters Date Type Department Care Team (Late st Contact Info) Description 07/25/2024 7:00 AM EST Laboratory Lab Mobile Phlebot[facility] [address] [place] [address] [facility], [facility] Mobile Home Draw [address] [place] [address] Chronic diastolic heart failure (HCC) 07/26/2024 6:00 AM EST Anticoagulation Centralized Clinical Pharmacy Services, Ciera Griffin [address] [place] [address] A[place]LIA Richardson [address] [facility], [address] [place] [address] Health Maintenance Due Date Last Done Comments DISCUSS TOBACCO CESSATION (REFER TO SMARTSET #5824) 1970 HIV Screening 1985 Pneumococcal Vaccine: Pediatrics [...] this encounter Medical Devices Implanted Type Area Fashion Buyer Device Identifier Shelf Expiration Date Model / Serial / Lot Tube Flex 3.0x2.5 [id number] - [id number] Implanted:Qty: 1 on 12/07/2014 by Juancarlos Trinidad MD at [place] [facility] Left: Finger LANDON : ORTHOPAEDICS 11/18/2015 [id number] / / [id number] documented as of this encounter Advance Directives [...] (no specific identity) Health Care Power of It Assistant Care Teams Church Business Administrator Relationship Specialty Start Date End Date Kehinde Mc MD [address] [place] [address] PCP - General Internal Medicine 03/28/24 documented as of this encounter
--- OUTSIDE RECORDS SUMMARY | 2024-08-01 04:31 | External Medical Summary | Summary of Care ---
Author Name Unknown Organization [facility] Address [address] [place] [address] Phone [phone] Care Team Providers Care Safety Tech Name Role Phone Kehinde Mc MD Primary Care Provider [phone] Reason for Visit * Reason Comments Dosage Adjustment Via Phone (anticoag Cl inic) Encounter Details Date Type Department Care Team ([facility] Contact Info) Description 07/26/2024 6:00 AM EST Anticoagulation Centralized Clinical Pharmacy Services, Ciera Griffin [address] [place] [address] [place] Richardson [address] [place] [address] History of pulmonary embolism* Allergies Active Allergy [...] as of this encounter (statuses as of 07/26/2024) Medications Medication Sig Dispensed Refills Start Date [...] Tablet before bedtime. 04/19/2022 Active nystatin (NYSTOP) 095275 UNIT/GM powderIndications:Cut aneous candidiasis Apply topically to [...] MG Oral TabletIndications:Cor onary artery disease involving [place] coronary artery of [...] than 8.0% ([facility]) Use 3 times daily as directed 1 Kit 08/31/2023 Active True Metrix Blood Glucose Test In Vitro Strip (Glucose Blood)Indications:Typ e 2 diabetes mellitus with hemoglobin A1c goal of less than 8.0% ([facility]) Use 3 times daily as directed 300 Strip 3 08/31/2023 Active TRUEplus Lancets 33GIndications:Type 2 diabetes mellitus with hemoglobin A1c goal of less than 8.0% ([facility]) Use 3 times daily as directed [...] MG Oral TabletIndications:Cor onary artery disease involving [place] coronary artery of [place] heart without angina pectoris TAKE 1 TABLET [...] NEEDED FOR MUSCLE SPASM(S) 60 Tablet 5 05/30/2024 Active FreeStyle Js 3 [place] DeviceIndications:Typ e 2 diabetes mellitus with hemoglobin A1c goal of less than 8.0% ([facility]) Use as directed. 1 Each 1 05/30/2024 Active FreeStyle Js 3 Sensor Use [...] mouth in the morning. 90 Capsule 1 05/30/2024 Active Gabapentin 600 MG Oral Tablet (Neurontin) Take 1 Tablet by mouth in the morning and 1 Tablet at noon and 1 Tablet before bedtime. 270 Tablet 05/30/2024 Active Metoprolol Succinate ER 50 MG Oral Tablet Extended Release 24 Hour (toPROL XL)Indications:Harman ry artery disease involving [place] coronary artery of [place] heart without angina pectoris TAKE 1 & 1/2 TABLETS by mouth 2 TIMES A DAY 90 Tablet 5 06/26/2024 Active Famotidine 20 MG Oral Tablet (Pepcid)Indications:G astroesophageal reflux disease without esophagitis Take 1 Tablet by mouth at bedtime. 30 Tablet 5 06/26/2024 Active Furosemide 40 MG Oral Tablet [...] as of this encounter (statuses as of 07/26/2024) Active Problems Problem Noted Date Diagnosed Date [...] as of this encounter (statuses as of 07/26/2024) Resolved Problems Problem Noted Date Diagnosed Date [...] Calculus of kidney 08/20/2015 8 Overview: right, [place] CT Vitamin D deficiency 01/31/2015 018 Body [...] as of this encounter (statuses as of 07/26/2024) Immunizations Name Administration Dates Next Due COVID-19 mRNA, LNP-s, No Pre serve, 2-Dose Series (Neocleus) 01/02/2021,12/05/2020 DTP Vaccine 07/19/2017,04/03/2014 Hepatitis B, 20+ [...] No 03/28/2024 documented as of this encounter Progress Notes * Delilah Boland, sole splitter - 07/26/2024 8:46 AM EST Contacts Contact Date/Time Type Contact Phone/Fax 07/26/2024 08:43 AM EST Phone (Outgoing) Stanton Milner (Self) [phone] (H) Subjective Patient Findings Positives: Change in medications (started on macrobid 07/21. aware to call [facility] with severe NVD) Negatives: Signs/symptoms of bleeding, Change in health, Change in activity, Upcoming invasive procedure, Missed doses, Extra doses, Change in diet/appetite, Bruising Advised patient to contact Anticoagulation Clinic if any unusual bruising or bleeding, recent illness, changes in medication, or questions/concerns. PT/INR results, Coumadin dose instructions, and next PT/INR date communicated as noted by Pharmacist: Yes DELILAH BOLAND CPhT 07/26/2024, 8:46 AM * Keren Sanchez RPh - 07/26/2024 8:02 AM EST Images from the original note were not included. Coumadin Clinic (region specific) Objective Current Warfarin Dose As of 07/26/2024 Warfarin maintenance plan: 2.5 mg (5 mg x 0.5) every Tue, Micki, Sat; 5 mg (5 mg x 1) all other days INR Result As of 07/26/2024 INR goal: 2.0-3.0 INR used for dosin.9 (07/25/2024) Assessment & Plan Warfarin Plan As of 07/26/2024 Full warfarin instructions: 07/26: Hold; Otherwise 2.5 mg every Tue, Micki, Sat; 5 mg all other days Next INR check: 08/01/2024 Repeat PT/INR in 1 week(s) Weekly dose: not changed Additional Dosing Information: Description GML([facility]) - pt prefers [facility] at this time Tech to contact patient with dose instructions as noted. Keren Sanchez RPh 07/26/2024, 8:02 AM documented in this encounter Plan of Treatment Upcoming Encounters Date Type Department Care Team (Late st Contact Info) Description 08/02/2024 6:00 AM EST Anticoagulation Centralized Clinical Pharmacy Services, Ciera Griffin [address] [place] [address] A[place] Richardson [address] [facility], [address] [place] [address] [phone] (work) Health Maintenance Due Date Last Done Comments DISCUSS TOBACCO CESSATION (REFER TO SMARTSET #6672) 1970 HIV Screening 1985 Pneumococcal Vaccine: Pediatrics [...] encounter Medical Devices Implanted Type Area Tool Dispatcher Device Identifier Shelf Expiration Date Model / Serial / Lot Tube Flex 3.0x2.5 [id number] - [id number] Implanted:Qty: 1 on 12/07/2014 by Juancarlos Trinidad MD at [facility] Left: Finger [employer] : ORTHOPAEDICS 11/18/2015 [id number] / / [id number] documented as of this encounter Visit Diagnoses [...] (no specific identity) Health Care Power of Commercial Mortgage Broker Care Teams Safety Tech Relationship Specialty Start Date End Date Kehinde Mc MD [address] [place] [address] PCP - General Internal Medicine 03/28/24 documented as of this encounter
--- OUTSIDE RECORDS SUMMARY | 2024-08-01 04:31 | External Medical Summary | Summary of Care ---
Author Name Unknown Organization [facility] Address [address] [place] [address] Phone [phone] Care Team Providers Care Pot Room Tapper Name Role Phone Kehinde Mc MD Primary Care Provider [phone] Reason for Visit * Reason Onset Date Comments Order Request 07/24/2024 [facility] Encounter Details Date Type Department Care Team ([facility] st Contact Info) Description 07/24/2024 Telephone [facility] [address] [place] [address] Kehinde Mc MD [address] [place] [address] Order Request ([facility]) Allergies Active Allergy Reactions Criticality Noted Date [...] as of this encounter (statuses as of 07/24/2024) Medications Medication Sig Dispensed Refills Start Date [...] Tablet before bedtime. 04/19/2022 Active nystatin (NYSTOP) 642834 UNIT/GM powderIndications:Cut aneous candidiasis Apply topically to [...] MG Oral TabletIndications:Cor onary artery disease involving [place] coronary artery of [place] heart without angina pectoris Take by mouth [...] MG Oral TabletIndications:Cor onary artery disease involving [place] coronary artery of [place] heart without angina pectoris TAKE 1 TABLET [...] 30 Capsule 05/30/2024 Active FreeStyle Js 3 [place] DeviceIndications:Typ e 2 diabetes mellitus with hemoglobin A1c goal of less than 8.0% ([facility]) Use as directed. 1 Each [...] Hour (toPROL XL)Indications:Harman ry artery disease involving [place] coronary artery of [place] heart without angina pectoris TAKE 1 & [...] as of this encounter (statuses as of 07/24/2024) Active Problems Problem Noted Date Diagnosed Date [...] hemorrhage 10/04/2020 Coronary artery disease invo lving [place] heart without angina pectoris 10/04/2020 COPD, group [...] as of this encounter (statuses as of 07/24/2024) Resolved Problems Problem Noted Date Diagnosed Date [...] Calculus of kidney 08/20/2015 8 Overview: right, [place] CT Vitamin D deficiency 01/31/2015 018 Body [...] as of this encounter (statuses as of 07/24/2024) Immunizations Name Administration Dates Next Due COVID-19 mRNA, LNP-s, No Pre serve, 2-Dose Series ([facility]) 01/02/2021,12/05/2020 DTP Vaccine 07/19/2017,04/03/2014 Hepatitis B, [...] encounter Miscellaneous Notes * Telephone Encounter - Gina Clifford LPN - 07/24/2024 7:22 AM EST Received Fax for BFPROVIDERS: Dr. Kehinde Mc ORDER received from [employer] and FAXED documented in this encounter Plan of Treatment Upcoming Encounters Date Type Department Care Team (Late st Contact Info) Description 07/25/2024 7:00 AM EST Laboratory Lab Mobile Phlebotomy [facility] [address] [place] [address] [facility], Gml Mobile Home Draw [address] [employer] [place] [address] 07/26/2024 6:00 AM EST Anticoagulation Centralized Clinical Pharmacy Services, Ciera Griffin [address] [place] [address] [place] Richardson [address] [facility], [facility] [address] [place] [address] Health Maintenance Due Date Last Done Comments DISCUSS TOBACCO CESSATION (REFER TO SMARTSET #7622) 1970 HIV Screening 1985 Pneumococcal Vaccine: Pediatrics [...] this encounter Medical Devices Implanted Type Area Title Search Manager Device Identifier Shelf Expiration Date Model / Serial / Lot Tube Flex 3.0x2.5 [id number] - [id number] Implanted:Qty: 1 on 12/07/2014 by Juancarlos Trinidad MD at [facility] Left: Finger [employer]ON : ORTHOPAEDICS 11/18/2015 [id number] / / [id number] documented as of this encounter Advance Directives [...] (no specific identity) Health Care Power of Chicken And Fish Butcher Care Teams Pot Room Tapper Relationship Specialty Start Date End Date Kehinde Mc MD [address] [facility] [place] [address] PCP - General Internal Medicine 03/28/24 documented as of this encounter
--- OUTSIDE RECORDS SUMMARY | 2024-08-01 04:31 | External Medical Summary | Summary of Care ---
Author Name Unknown Organization [facility] Address [address] [place] [address] Phone [phone] Care Team Providers Care Data Engineer Name Role Phone Kehinde Mc MD Primary Care Provider [phone] Encounter Details Date Type Department Care Team (Late st Contact Info) Description 07/25/2024 Orders Only Lab Mobile Phlebotomy [facility] [address] [place] [address] Keren Sanchez, [facility] [address] [place] [address] Chronic diastolic heart failure (HCC)* Allergies Active Allergy Reactions Criticality Noted Date [...] Tablet before bedtime. 04/19/2022 Active nystatin (NYSTOP) 110566 UNIT/GM powderIndications:Cut aneous candidiasis Apply topically to affected area 3 times a day. 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 ([facility]) Place 1 Tab under the [...] than 8.0% ([facility]) Use 3 times daily as directed 1 Kit 08/31/2023 Active True Metrix Blood Glucose Test In Vitro Strip (Glucose Blood)Indications:Typ e 2 diabetes mellitus with hemoglobin A1c goal of less than 8.0% ([facility]) Use 3 times daily as directed 300 Strip 3 08/31/2023 Active TRUEplus Lancets 33GIndications:Type 2 diabetes mellitus with hemoglobin A1c goal of less than 8.0% ([facility]) Use 3 times daily [...] shawnee heart without angina pectoris TAKE 1 TABLET [...] 30 Capsule 05/30/2024 Active FreeStyle Js 3 [place] DeviceIndications:Typ e 2 diabetes mellitus with hemoglobin A1c goal of less than 8.0% ([facility]) Use as directed. 1 Each [...] hemorrhage 10/04/2020 Coronary artery disease invo lving shawnee heart without angina pectoris 10/04/2020 COPD, [...] Calculus of kidney 08/20/2015 8 Overview: right, [place] CT Vitamin D deficiency 01/31/2015 018 Body [...] mRNA, LNP-s, No Pre serve, 2-Dose Series ([employer]) 01/02/2021,12/05/2020 DTP Vaccine 07/19/2017,04/03/2014 Hepatitis B, [...] No 03/28/2024 documented as of this encounter Plan of Treatment Upcoming Encounters Date Type Department Care Team (Late st Contact Info) Description 07/25/2024 7:00 AM EST Laboratory Lab Mobile Phlebotomy [facility] [address] [place] [address] [facility], [facility] Mobile Home Draw [address] [place] [address] [address] Chronic diastolic heart failure (HCC) 07/26/2024 6:00 AM EST Anticoagulation Centralized Clinical [facility] Services, Ciera Griffin [address] [place] [address] [place] [address] [place] [address] Scheduled Orders Name Type Priority Associated Diagnoses Orde r Schedule PT INR Lab Routine Chronic diastolic heart failure (HCC) Expected: 07/25/2024, Expires: 07/25/2025 Health Maintenance Due Date Last Done Comments DISCUSS TOBACCO CESSATION (REFER TO SMARTSET #3172) 1970 HIV Screening 1985 Pneumococcal Vaccine: Pediatrics [...] Colorectal Cancer Screening 12/09/2023 COVID-19 Vaccine ( - season) 2024 01/02/2021, 12/05/2020 Influenza Vaccine (FLU shot) (#1) 2024 08/26/2013 HbA1c 11/15/2024 05/15/2024, 07/0 04/2024, 03/19/2022, Additional history exists Diabetic Foot Exam 03/28/2025 03/28/2024, 0 12/14/2019, 09/02/2015, Additional history exists O2 ASSESSMENT COMPLETED IN PAST YEAR FOR COPD 04/04/2025 04/04/2024 GFR 05/15/2025 05/15/2024, 07/1 02/2024, 04/03/2024, Additional history exists Albumin/Creatinine Ratio [...] this encounter Medical Devices Implanted Type Area Web User Experience Strategist Device Identifier Shelf Expiration Date Model / Serial / Lot Tube Flex 3.0x2.5 [id number] - [id number] Implanted:Qty: 1 on 12/07/2014 by Juancarlos Trinidad MD at [facility] Left: Finger [employer]ON : ORTHOPAEDICS 11/18/2015 [id number] / / [id number] documented as of this encounter Visit Diagnoses Diagnosis Chronic diastolic heart failure (HCC) Chronic diastolic heart failure Chronic diastolic heart failure (HCC)- Primary Chronic diastolic heart failure documented in this encounter Advance Directives * [...] specific identity) Health Care Power of Home Health Manager Care Teams Data Engineer Relationship Specialty Start Date End Date Kehinde Mc MD [address] [place] [address] PCP - General Internal Medicine 03/28/24 documented as of this encounter
--- OUTSIDE RECORDS SUMMARY | 2024-08-01 04:31 | External Medical Summary ---
Author Name Unknown Address Unknown Organization [id number]:[facility] [address] [place] [address] Laboratory Report Ordering Provider Test Date Status TULIO TRONCOSO 07/25/2024 07:54:00 Final Warfarin Therapy
INR: 2 .0-3.0 conventional anticoagulation
INR: 2.5- 3.5 high intensity anticoagulation Observation Date Value Abnormality Reference (Units ) Status PT 07/25/2024 07:54:00 38.6 Above high normal 11 .6-15.2 (seconds) Final INR 07/25/2024 07:54:00 3.9 Above high normal 0. 8-1.2 Final [facility]forming Location [facility] [address] [place] [address]
--- OUTSIDE RECORDS SUMMARY | 2024-08-01 04:32 | External Medical Summary | Summary of Care ---
Author Name Unknown Organization [facility] Address [address] [place] [address] Phone [phone] Care Team Providers Care Emergency Management Program Specialist Name Role Phone Kehinde Mc MD Primary Care Provider [phone] Reason for Visit * Reason Onset Date Comments Advice 07/20/2024 Encounter Details Date Type Department Care Team ([facility] st Contact Info) Description 07/20/2024 Telephone [facility] [address] [place] [address] Kehinde Mc MD [address] [place] [address] Advice Allergies Active Allergy Reactions [...] Tablet before bedtime. 04/19/2022 Active nystatin (NYSTOP) 490139 UNIT/GM powderIndications:Cut aneous candidiasis Apply topically to [...] (HCC),COPD, group D, by GOLD 2017 classification ([facility]) USE 2 PUFFS BY MOUTH EVERY 4 HOURS NEEDED SHORT OF BREATH 6.7 g 5 11/24/2021 Active Magnesium Oxide 400 (241.3 Mg) MG Oral TabletIndications:Cor onary artery disease involving [place] coronary artery of [place] heart without angina pectoris Take by [...] goal of less than 8.0% ([facility]) Use 3 times daily as directed 1 Kit 08/31/2023 Active True Metrix Blood Glucose Test In Vitro Strip (Glucose Blood)Indications:Typ e 2 diabetes mellitus with hemoglobin A1c goal of less than 8.0% ([facility]) Use 3 times daily as directed 300 Strip 3 08/31/2023 Active TRUEplus Lancets 33GIndications:Type 2 diabetes mellitus with hemoglobin A1c goal of less than 8.0% ([facility]) Use 3 times daily as directed [...] MG Oral TabletIndications:Cor onary artery disease involving [place] coronary artery of [place] heart without angina pectoris TAKE 1 TABLET [...] 30 Capsule 05/30/2024 Active FreeStyle Js 3 [place] DeviceIndications:Typ e 2 diabetes mellitus with hemoglobin A1c goal of less than 8.0% ([facility]) Use as directed. 1 Each 05/30/2024 Active [...] Hour (toPROL XL)Indications:Harman ry artery disease involving [place] coronary artery of [place] heart without angina pectoris TAKE 1 [...] the morning. 30 Tablet 5 06/26/2024 Active documented as of this encounter (statuses [...] 01/24/2021 Opioid dependence, uncomplicated 01/22/2021 History of [place] (myocardial infarction) 01/22/2021 Morbid obesity with BMI of 50.0-59.9, adult 09/20 History of subdural hematoma 10/04/2020 Gastroesophageal reflux disease without esophagi tis 10/04/2020 History of subarachnoid hemorrhage 10/04/2020 Coronary artery disease invo lving [place] heart without angina pectoris 10/04/2020 COPD, [...] 10/04/2017 Acute pain of both knees 07/20/2016 01/ Pain of left clavicle 07/20/20162017 Pulmonary nodule, [...] Calculus of kidney 08/20/2015 8 Overview: right, [place] CT Vitamin D deficiency 01/31/2015 018 Body [...] mRNA, LNP-s, No Pre serve, 2-Dose Series ([employer]) 01/02/2021,12/05/2020 DTP Vaccine 07/19/2017,04/03/2014 Hepatitis B, 20+ [...] encounter Miscellaneous Notes * Telephone Encounter - Doreen Perez LPN - 07/21/2024 10:20 AM EDT [...] Reason for patient's call: ALEXANDER Remy from [facility] called would like to know if provider reviewed patient's urinalysis and if patient will be starting antibiotics.Unable to reach DNL. Sandrita requesting acall back. documented in this encounter Plan of Treatment Upcoming Encounters Date Type Department Care Team (Late st Contact Info) Description 07/25/2024 7:00 AM EST Laboratory Lab Mobile Phlebotomy [facility] [address] [place] [address] [facility], Gml Mobile Home Draw [address] [place] [address] 07/26/2024 6:00 AM EST Anticoagulation Centralized Clinical Pharmacy Services, Ciera Griffin [address] [place] [address] [place] [address] [place] [address] Health Maintenance Due Date Last Done Comments DISCUSS TOBACCO CESSATION (REFER TO SMARTSET #6183) 1970 HIV Screening 1985 Pneumococcal Vaccine: Pediatrics [...] this encounter Medical Devices Implanted Type Area Parquet Floor Layer Device Identifier Shelf Expiration Date Model / Serial / Lot Tube Flex 3.0x2.5 [id number] - [id number] Implanted:Qty: 1 on 12/07/2014 by Juancarlos Trinidad MD at [facility] Left: Finger [employer]ON : ORTHOPAEDICS 11/18/2015 [id number] / / [id number] documented as of this encounter Advance Directives [...] (no specific identity) Health Care Power of Offset Label Rewinder Care Teams Emergency Management Program Specialist Relationship Specialty Start Date End Date Kehinde Mc MD [address] [facility] [place] [address] PCP - General Internal Medicine 03/28/24 documented as of this encounter
--- OUTSIDE RECORDS SUMMARY | 2024-08-01 04:32 | External Medical Summary | Summary of Care ---
Author Name Unknown Organization [facility] Address [address] [place] [address] Phone [phone] Care Team Providers Care Pest Control Service Technician Name Role Phone Kehinde Mc MD Primary Care Provider [phone] Reason for Visit * Reason Onset Date Comments Advice 07/20/2024 Encounter Details Date Type Department Care Team ([facility] st Contact Info) Description 07/20/2024 Telephone [facility] [address] [place] [address] Kehinde Mc MD [address] [place] [address] Advice Allergies Active Allergy Reactions [...] Tablet before bedtime. 04/19/2022 Active nystatin (NYSTOP) 785293 UNIT/GM powderIndications:Cut aneous candidiasis Apply topically to [...] MG Oral TabletIndications:Cor onary artery disease involving [place]ski coronary artery of [place] heart without angina pectoris Take by mouth [...] MG Oral TabletIndications:Cor onary artery disease involving [place]ski coronary artery of [place] heart without angina pectoris TAKE 1 TABLET [...] 30 Capsule 05/30/2024 Active FreeStyle Js 3 [place] DeviceIndications:Typ e 2 diabetes mellitus with hemoglobin A1c goal of less than 8.0% ([facility]) Use as directed. 1 Each [...] Hour (toPROL XL)Indications:Harman ry artery disease involving [place]ski coronary artery of [place] heart without angina pectoris TAKE 1 & [...] hemorrhage 10/04/2020 Coronary artery disease invo lving belkofski heart without angina pectoris 10/04/2020 COPD, group [...] Calculus of kidney 08/20/2015 8 Overview: right, [place] CT Vitamin D deficiency 01/31/2015 018 Body [...] mRNA, LNP-s, No Pre serve, 2-Dose Series ([facility]) 01/02/2021,12/05/2020 DTP Vaccine 07/19/2017,04/03/2014 Hepatitis B, 20+ [...] encounter Miscellaneous Notes * Addendum Note - Kehinde Mc MD - 07/21/2024 12:04 PM EDTAddended by: KEHINDE MC on: 07/21/2024 12:04 PM Modules accepted: Orders * Telephone Encounter - Kehinde Mc MD - 07/21/2024 12:03 PM EDT Ordered macrobid for 7 days * Telephone Encounter - Doreen Perez LPN [...] Reason for patient's call: ALEXANDER Remy from [facility] called would like to know if provider reviewed patient's urinalysis and if patient will be starting antibiotics.Unable to reach DNL. Sandrita requesting acall back. documented in this encounter Plan of Treatment Upcoming Encounters Date Type Department Care Team (Late st Contact Info) Description 07/25/2024 7:00 AM EST Laboratory Lab Mobile Phlebotomy [facility] [address] [place] [address] [address] [facility], Gml Mobile Home Draw [address] [place] [address] [address] 07/26/2024 6:00 AM EST Anticoagulation Centralized Clinical Pharmacy Services, Ciera Griffin [address] [place] [address] [place] [address] [phone] [place] [address] [place] [address] Health Maintenance Due Date Last Done Comments DISCUSS TOBACCO CESSATION (REFER TO SMARTSET #6362) 1970 HIV Screening 1985 Pneumococcal Vaccine: Pediatrics [...] this encounter Medical Devices Implanted Type Area Medication Aide Device Identifier Shelf Expiration Date Model / Serial / Lot Tube Flex 3.0x2.5 [id number] - [id number] Implanted:Qty: 1 on 12/07/2014 by Juancarlos Trinidad MD at [facility] Left: Finger [employer]ON : ORTHOPAEDICS 11/18/2015 [id number] / / [id number] documented as of this encounter Advance Directives [...] (no specific identity) Health Care Power of Tow Motor Operator Care Teams Pest Control Service Technician Relationship Specialty Start Date End Date Kehinde Mc MD [address] [place] [address] PCP - General Internal Medicine 03/28/24 documented as of this encounter
--- OUTSIDE RECORDS SUMMARY | 2024-08-01 04:32 | External Medical Summary | Summary of Care ---
Author Name Unknown Organization [facility] Address [address] [place] [address] Phone [phone] Care Team Providers Care Cash Applications Representative Name Role Phone Kehinde Mc MD Primary Care Provider [phone] Reason for Visit * Reason Onset Date Comments Advice 07/20/2024 Encounter Details Date Type Department Care Team ([facility] st Contact Info) Description 07/20/2024 Telephone [facility] [address] [place] [address] Kehinde Mc MD [address] [place] [address] Advice Allergies Active Allergy Reactions [...] Tablet before bedtime. 04/19/2022 Active nystatin (NYSTOP) 662169 UNIT/GM powderIndications:Cut aneous candidiasis Apply topically to [...] (HCC),COPD, group D, by GOLD 2017 classification ([facility]) USE 2 PUFFS BY MOUTH EVERY [...] less than 8.0% ([facility]) Use 3 times daily as directed 1 Kit 08/31/2023 Active True Metrix Blood Glucose Test In Vitro Strip (Glucose Blood)Indications:Typ e 2 diabetes mellitus with hemoglobin A1c goal of less than 8.0% ([facility]) Use 3 times daily as directed 300 Strip 3 08/31/2023 Active TRUEplus Lancets 33GIndications:Type 2 diabetes mellitus with hemoglobin A1c goal of less than 8.0% ([facility]) Use 3 times daily as directed [...] [place]op[place] heart without angina pectoris TAKE 1 TABLET [...] 30 Capsule 05/30/2024 Active FreeStyle Js 3 [place] DeviceIndications:Typ e 2 diabetes mellitus with hemoglobin A1c goal of less than 8.0% ([facility]) Use as directed. 1 Each 05/30/2024 Active [...] hemorrhage 10/04/2020 Coronary artery disease invo lving [place]da heart without angina pectoris 10/04/2020 COPD, [...] Calculus of kidney 08/20/2015 8 Overview: right, [place] CT Vitamin D deficiency 01/31/2015 018 Body [...] mRNA, LNP-s, No Pre serve, 2-Dose Series ([employer]) 01/02/2021,12/05/2020 DTP Vaccine 07/19/2017,04/03/2014 Hepatitis B, 20+ [...] 4:30 PM EDT Reason for patient's call: RN Sandrita from [facility] called would like to know if provider reviewed patient's urinalysis and if patient will be starting antibiotics.Unable to reach DNL. Sandrita requesting acall back. documented in this encounter Plan of Treatment Upcoming Encounters Date Type Department Care Team (Late st Contact Info) Description 07/25/2024 7:00 AM EST Laboratory Lab Mobile Phlebotomy [facility] [address] [place] [address] [facility], Gml Mobile Home Draw [address] [place] [address] 07/26/2024 6:00 AM EST Anticoagulation Centralized Clinical Pharmacy Services, Ciera Griffin [address] [place] [address] [place] [address] [place] [address] Health Maintenance Due Date Last Done Comments DISCUSS TOBACCO CESSATION (REFER TO SMARTSET #1926) 1970 HIV Screening 1985 Pneumococcal Vaccine: Pediatrics [...] this encounter Medical Devices Implanted Type Area Chef [place] Device Identifier Shelf Expiration Date Model / Serial / Lot Tube Flex 3.0x2.5 [id number] - [id number] Implanted:Qty: 1 on 12/07/2014 by Juancarlos Trinidad MD at [facility] Left: Finger [employer] : ORTHOPAEDICS 11/18/2015 [id number] / / [id number] documented as of this encounter Advance Directives [...] (no specific identity) Health Care Power of Electric Motor Rebuilder Care Teams Cash Applications Representative Relationship Specialty Start Date End Date Kehinde Mc MD [address] [place] [address] PCP - General Internal Medicine 03/28/24 documented as of this encounter
--- OUTSIDE RECORDS SUMMARY | 2024-08-01 04:32 | External Medical Summary | Summary of Care ---
Author Name Unknown Organization [facility] Address [address] [place] [address] Phone [phone] Care Team Providers Care Amusement Park Entertainer Name Role Phone Kehinde Mc MD Primary Care Provider [phone] Reason for Referral * Evaluate & Treat - Unlimited Visits (Within 30 days (routine)) - Authorized Specialty Diagnoses / Procedures Referred By Contac t Referred To Contact Pharmacist / Pharmacy Diagnoses Type 2 diabetes mellitus with hemoglobin A1c goal of less than 8.0% ([facility]) Kehinde Mc MD [address] [place] [address] Referral ID Status Reason Start Date Expiration Date Visits Requested Visits Authorized [id number] Authorized Specialty Services Required 4 11/18/2024 99 99 Question Answer Referral Priority Within 30 days (routine) Where should this appointment be scheduled? [facility] Referring Provider Role: Primary Care Reason for Referral: DM Target A1c: < 8 Comments Pharmacist Medication Therapy Management: Minimum frequency patient should be seen in person for medication management: as appropriate per clinical condition and patient status By my signature, I understand that my patient Stanton Milner will have his medication therapy managed by the [facility] ([facility]) per established policies, procedures, and protocols. I also certify that this referral may serve as an initiation of service for the management of drug therapy in the above noted patient. [facility] providers will be responsible for scheduling patient visits, obtaining appropriate laboratory studies, and adjusting medication management therapy per patient's need, in addition to those roles spelled out in the clinic policy, procedures, and drug management protocols. I understand that the service provided by the [facility] is voluntary and have informed patient that they can refuse the service at their discretion. I am aware that the [facility] Clinic will provide me with a copy of the patient encounter via my [employer] InForward Talentet. I authorize the [facility] to carry out these activities on my behalf. I consider this program to be a necessary part of the patient's medical care. Kehinde Mc MD Reason for Visit * Reason Onset Date Comments Fax 05/18/2024 Encounter Details Date Type Department Care Team (Late st Contact Info) Description 05/18/2024 Telephone [facility] [address] [place] [address] Kehinde Mc MD [address] [place] [address] Fax Allergies Active Allergy Reactions Criticality Noted Date [...] as of this encounter (statuses as of 07/20/2024) Medications Medication Sig Dispensed Refills Start Date [...] noon and 1 Tablet before bedtime. 04/19/20 Active nystatin (NYSTOP) 495508 UNIT/GM powderIndications:C utaneous candidiasis Apply topically to affected area 3 times a day. 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 25 Tab 5 06/05/20 Active Additional Information Patient not taking.Reported on [...] Shortness of Breath. 1 Each 1 08/30/20 Active QC Stool Softener 100 MG Oral Capsule (docusate sodium)Indications: Constipation, unspecified constipation type TAKE ONE CAPSULE BY MOUTH 2 TIMES A DAY 60 Cap 5 09/18/20 Active Additional Information Patient not taking.Reported on 03/28/2024 Fluticasone Propionate 93 MCG/ACT Nasal Exhaler SuspensionIndicatio ns:Allergic rhinitis due to pollen, unspecified seasonality Administer into nostril 2 Sprays daily . 16 mL 1 11/21/19 22 Active Albuterol Sulfate HFA 108 (90 Base) MCG/ACT Inhalation Aerosol SolutionIndications :COPD, group C, by GOLD 2017 classification ([facility]),COPD, group D, by GOLD 2017 classification ([facility]) USE 2 PUFFS BY MOUTH EVERY 4 HOURS NEEDED SHORT OF BREATH 6.7 g 5 11/25/19 22 Active Magnesium Oxide 400 (241.3 Mg) MG Oral TabletIndications:C oronary artery disease involving [place] coronary artery of [place] heart without angina pectoris Take by mouth [...] MG Oral TabletIndications:C oronary artery disease involving [place] coronary artery of [place] heart without angina pectoris TAKE 1 TABLET BY MOUTH IN THE MORNING. 30 Tablet 5 04/28/20 24 Active glipiZIDE 10 MG Oral Tablet (Glucotrol)Indicati ons:Diabetes mellitus with nephropathy (HCC) TAKE ONE TABLET BY MOUTH 2 TIMES A DAY 30 MINUTES BEFORE MEALS 180 Tablet 3 05/16/20 24 Active Atorvastatin Calcium 80 MG Oral Tablet (Lipitor) TAKE 1 TABLET BY MOUTH IN THE AFTERNOON 90 Tablet 3 05/16/20 24 Active Mucinex DM 30-600 MG Oral Tablet Extended Release 12 Hour Take by mouth 1 Tablet 2 times a day as needed for Cough. Take with plenty of water. Do not cut, crush or chew 40 Tablet 2 04/03/20 22 024 Discontinued Ondansetron HCl 4 MG Oral Tablet (Zofran)Indications :Nausea TAKE 1 TABLET BY MOUTH EVERY 8 HOURS NEEDED NAUSEA 20 Tablet 1 06/15/20 22 024 Discontinued LORazepam 0.5 MG Oral Tablet (Ativan)Indications :Depression with anxiety Take 1 Tablet by mouth every 8 hours as needed for Anxiety. 21 Tablet 09/30/19 23 024 Discontinued Metoprolol Succinate ER 50 MG Oral Tablet Extended Release 24 Hour (toPROL XL)Indications:Freddie nary artery disease involving [place] coronary artery of [place] heart without angina pectoris TAKE 1 & 1/2 TABLETS by mouth 2 TIMES A DAY 270 Tablet 1 04/05/20 23 024 Discontinued(Re fill) Omeprazole 20 MG Oral Capsule Delayed Release (PriLOSEC) TAKE ONE CAPSULE BY MOUTH 1 HOUR BEFORE THE 1ST MEAL OF THE DAY 90 Capsule 1 04/21/20 23 024 Discontinued(Re fill) Famotidine 20 MG Oral Tablet (Pepcid)Indications :Gastroesophageal reflux disease without esophagitis Take 1 Tablet by mouth in the morning. 90 Tablet 1 04/21/20 23 024 Discontinued(Re fill) Finasteride 5 MG Oral Tablet (Proscar)Indication s:BPH with obstruction/lower urinary tract symptoms TAKE ONE TABLET BY MOUTH EVERY DAY IN THE MORNING 90 Tablet 1 04/21/20 23 024 Discontinued(Re fill) Cyclobenzaprine HCl 10 MG Oral Tablet (Flexeril)Indicatio ns:Chronic pain syndrome TAKE 1 TABLET TWICE DAILY NEEDED FOR MUSCLE SPASM(S) 60 Tablet 5 05/28/20 23 024 Discontinued(Re fill) DULoxetine HCl 60 MG Oral Capsule Delayed Release Particles (Cymbalta)Indicatio ns:DM type 2 with diabetic peripheral neuropathy (HCC),Chronic bilateral low back pain without sciatica TAKE 1 CAPSULE BY MOUTH IN THE MORNING. 90 Capsule 1 06/14/20 23 024 Discontinued(Re fill) Gabapentin 800 MG Oral Tablet (Neurontin)Indicati ons:DM type 2 with diabetic peripheral neuropathy (HCC) TAKE 1 TABLET BY MOUTH IN THE MORNING, 1 TABLET AT NOON AND 1 TABLET BEFORE BEDTIME. 270 Tablet 10 07/07/20 23 024 Discontinued oxyCODONE HCl 10 MG Oral Tablet (Roxicodone) Take 1 Tablet by mouth every 6 hours as needed for Pain, Moderate or Pain, Severe. 024 Discontinued(Re fill) documented as of this encounter (statuses as of 07/20/2024) Active Problems Problem Noted Date Diagnosed Date [...] hemorrhage 10/04/2020 Coronary artery disease invo lving [place] heart without angina pectoris 10/04/2020 COPD, group [...] as of this encounter (statuses as of 07/20/2024) Resolved Problems Problem Noted Date Diagnosed Date [...] Calculus of kidney 08/20/2015 8 Overview: right, [place] CT Vitamin D deficiency 01/31/2015 018 Body [...] as of this encounter (statuses as of 07/20/2024) Immunizations Name Administration Dates Next Due COVID-19 mRNA, LNP-s, No Pre serve, 2-Dose Series ([facility]) 01/02/2021,12/05/2020 DTP Vaccine 07/19/2017,04/03/2014 Hepatitis B, [...] (15 years old or older) Yes 03/28/20 24 Cognitive Status Response Date of Assessm ent Because of a physical, menta l, or emotional condition, do you have serious difficulty concentrating, remembering, or making decisions? (5 years old or older) No 03/28/2024 documented as of this encounter Miscellaneous Notes * Telephone Encounter - Stephen Mcpherson OSA - 07/20/2024 11:14 AM EDT LMOM 07/20 * Addendum Note - Kehinde Mc MD - 07/20/2024 7:55 AM EDTAddended by: KEHINDE MC on: 07/20/2024 07:55 AM Modules accepted: Orders * Telephone Encounter - Kehinde Mc MD - 07/20/2024 7:55 AM EDT Yes signed Please schedule * Addendum Note - Joey Saldaña RPh - 05/22/2024 9:19 AM EDTAddended by: JOEY SALDAÑA on: 05/22/2024 09:19 AM Modules accepted: Orders * Telephone Encounter - Joey Saldaña RP - 05/22/2024 9:16 AM EDT Patient was identified by having an A1c >9%. Please sign pended referral to [facility] for diabetes management if appropriate. Given increased A1C (only actively taking Glipizide) pending [facility] referral. Hemoglobin AIC Results: Lab Results Component Value Date/Time HEMOGLOBIN A1C - ISINGER 9.4 (H) 05/15/2024 09:13 AM Joey Saldaña RPh 05/22/2024, 9:16 AM * Telephone Encounter - Giselle Kruger OSA - 05/18/2024 6:23 PM EDT Patient's home health orders were signed and faxed on 05/18/24 at 03:09 pm. documented in this encounter Plan of Treatment Upcoming Encounters Date Type Department Care Team (Late st Contact Info) Description 07/25/2024 7:00 AM EST Laboratory Lab Mobile Phlebotomy [facility] [address] [place] [address] M[facility], Gml Mobile Home Draw [address] [facility] [place] [address] 07/26/2024 6:00 AM EST Anticoagulation Centralized Clinical Pharmacy Services, Ciera Griffin [address] [place] [address] [place] [address] [facility] [place] [address] Scheduled Referrals Name Type Priority Associated Diagnoses Orde r Schedule PHARMACIST MEDS THERAPY MGMT REFERRAL OP Referral Within 30 days (routine) Type 2 diabetes mellitus with hemoglobin A1c goal of less than 8.0% (HCC) Ordered: 07/20/2024 Health Maintenance Due Date Last Done Comments DISCUSS TOBACCO CESSATION (REFER TO SMARTSET #7844) 1970 HIV Screening 1985 Pneumococcal Vaccine: Pediatrics [...] encounter Medical Devices Implanted Type Area Supervisor Respiratory Device Identifier Shelf Expiration Date Model / Serial / Lot Tube Flex 3.0x2.5 [id number] - [id number] Implanted:Qty: 1 on 12/07/2014 by Juancarlos Trinidad MD at OR [facility] [place] Left: Finger LANDON : ORTHOPAEDICS 11/18/2015 [id number] / / [id number] documented as of this encounter Visit Diagnoses Diagnosis Type 2 diabetes mellitus with hemoglobin A1c goal of less than 8.0% ([facility])- Primary documented in this encounter Advance Directives * [...] (no specific identity) Health Care Power of Sprinkler Installer Care Teams Amusement Park Entertainer Relationship Specialty Start Date End Date Kehinde Mc MD [address] [place] [address] PCP - General Internal Medicine 03/28/24 documented as of this encounter
--- OUTSIDE RECORDS SUMMARY | 2024-08-01 04:32 | External Medical Summary | Summary of Care ---
Author Name Unknown Organization [facility] Address [address] [place] [address] Phone [phone] Care Team Providers Care Manager System Name Role Phone Kehinde Mc MD Primary Care Provider [phone] Reason for Referral * Evaluate & Treat - Unlimited Visits (Within 30 days (routine)) - Authorized Specialty Diagnoses / Procedures Referred By Contac t Referred To Contact Pharmacist / Pharmacy Diagnoses Type 2 diabetes mellitus with hemoglobin A1c goal of less than 8.0% ([facility]) Kehinde Mc MD [address] [place] [address] Referral ID Status Reason Start Date Expiration Date Visits Requested Visits Authorized [id number] Authorized Specialty Services Required 4 11/18/2024 99 99 Question Answer Referral Priority Within 30 days (routine) Where should this appointment be scheduled? [facility] Referring Provider Role: Primary Care Reason for Referral: DM Target A1c: < 8 Comments Pharmacist Medication Therapy Management: Minimum frequency patient should be seen in person for medication management: as appropriate per clinical condition and patient status By my signature, I understand that my patient Stanton Milner will have his medication therapy managed by the [facility] ([facility]) per established policies, procedures, and protocols. I also certify that this referral may serve as an initiation of service for the management of drug therapy in the above noted patient. [facility] providers will be responsible for scheduling patient visits, obtaining appropriate laboratory studies, and adjusting medication management therapy per patient's need, in addition to those roles spelled out in the clinic policy, procedures, and drug management protocols. I understand that the service provided by the [facility] is voluntary and have informed patient that they can refuse the service at their discretion. I am aware that the [facility] Clinic will provide me with a copy of the patient encounter via my [employer] InStyleJamet. I authorize the [facility] to carry out these activities on my behalf. I consider this program to be a necessary part of the patient's medical care. Kehinde Mc MD Reason for Visit * Reason Onset Date Comments Fax 05/18/2024 Encounter Details Date Type Department Care Team (Late st Contact Info) Description 05/18/2024 Telephone [facility] [address] [place] [address] Kehinde Mc MD [address] [place] [address] Fax Allergies Active Allergy Reactions [...] Tablet before bedtime. 04/19/20 Active nystatin (NYSTOP) 598080 UNIT/GM powderIndications:C utaneous candidiasis Apply topically to affected area 3 times a day. 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) Place 1 Tab under the tongue every [...] MG Oral TabletIndications:C oronary artery disease involving [place] coronary artery of [place] heart without angina pectoris Take by mouth [...] 8.0% ([facility]) Use 3 times daily as directed 1 Kit 08/31/20 23 Active True Metrix Blood Glucose Test In Vitro Strip (Glucose Blood)Indications:T ype 2 diabetes mellitus with hemoglobin A1c goal of less than 8.0% ([facility]) Use 3 times daily as directed 300 Strip 3 08/31/20 23 Active TRUEplus Lancets 33GIndications:Type 2 diabetes mellitus with hemoglobin A1c goal of less than 8.0% ([facility]) Use 3 times daily as directed [...] MG Oral TabletIndications:C oronary artery disease involving [place] coronary artery of [place] heart without angina pectoris TAKE 1 TABLET [...] Hour (toPROL XL)Indications:Freddie nary artery disease involving [place] coronary artery of [place] heart without angina pectoris TAKE 1 & [...] hemorrhage 10/04/2020 Coronary artery disease invo lving [place] heart without angina pectoris 10/04/2020 COPD, group [...] Calculus of kidney 08/20/2015 8 Overview: right, [place] CT Vitamin D deficiency 01/31/2015 018 Body [...] mRNA, LNP-s, No Pre serve, 2-Dose Series ([facility] [facility] [employer] [facility]) 01/02/2021,12/05/2020 DTP Vaccine 07/19/2017,04/03/2014 Hepatitis [...] Please schedule * Addendum Note - Joey Saldaña, [facility] - 05/22/2024 9:19 AM EDTAddended by: JOEY SALDAÑA on: 05/22/2024 09:19 AM Modules accepted: Orders * Telephone Encounter - Joey Saldaña RPh - 05/22/2024 9:16 AM EDT Patient was identified by having an A1c >9%. Please sign pended referral to [facility] for diabetes management if appropriate. Given increased A1C (only actively taking Glipizide) pending [facility] referral. Hemoglobin AIC Results: Lab Results Component Value Date/Time HEMOGLOBIN A1C - TAYLERER 9.4 (H) 05/15/2024 09:13 AM Joey Saldaña [...] EST Laboratory Lab Mobile Phlebotomy [facility] [address] [address] Mv[facility], Gml Mobile Home Draw [address] [place] [address] 07/26/2024 6:00 AM EST Anticoagulation Centralized Clinical Pharmacy Services, Ciera Griffin [address] [place] [address] [place] [address] [facility] [place] [address] [place] [address] Scheduled Referrals Name Type Priority Associated Diagnoses Orde r Schedule PHARMACIST MEDS THERAPY MGMT REFERRAL OP Referral Within 30 days (routine) Type 2 diabetes mellitus with hemoglobin A1c goal of less than 8.0% (HCC) Ordered: 07/20/2024 Health Maintenance Due Date Last Done Comments DISCUSS TOBACCO CESSATION (REFER TO SMARTSET #3383) 1970 HIV Screening 1985 Pneumococcal Vaccine: Pediatrics [...] Cancer Screening 12/09/2023 COVID-19 Vaccine ( - 2023- season) 2024 01/02/2021, 12/05/2020 Influenza Vaccine (FLU shot) (#1) 2024 08/26/2013 HbA1c 11/15/2024 05/15/2024, 07/0 04/2024, 03/19/2022, Additional history exists Diabetic Foot Exam 03/28/2025 03/28/2024, 0 12/14/2019, 09/02/2015, Additional history exists O2 ASSESSMENT COMPLETED IN PAST YEAR FOR COPD 04/04/2025 04/04/2024 GFR 05/15/2025 05/15/2024, 0702/2024, 04/03/2024, Additional history exists Albumin/Creatinine Ratio 05/29/2025 [...] this encounter Medical Devices Implanted Type Area Youth Teacher Device Identifier Shelf Expiration Date Model / Serial / Lot Tube Flex 3.0x2.5 [id number] - [id number] Implanted:Qty: 1 on 12/07/2014 by Juancarlos Trinidad MD at [place] [facility] [place] [facility] Left: Finger [employer] : ORTHOPAEDICS 11/18/2015 [id number] / / [id number] documented as of this encounter Visit Diagnoses Diagnosis Type 2 diabetes mellitus with hemoglobin A1c goal of less than 8.0% ([facility])- Primary documented in this encounter Advance Directives [...] (no specific identity) Health Care Power of Community Education Specialist Care Teams Manager System Relationship Specialty Start Date End Date Kehinde Mc MD [address] [place] [address] PCP - General Internal Medicine 03/28/24 documented as of this encounter
--- OUTSIDE RECORDS SUMMARY | 2024-08-01 04:32 | External Medical Summary | Summary of Care ---
Author Name Unknown Organization [facility] Address [address] [place] [address] Phone [phone] Care Team Providers Care Overedge Machine Operator Name Role Phone Kehinde Mc MD Primary Care Provider [phone] Reason for Visit * Reason Onset Date Comments Advice 07/20/2024 Encounter Details Date Type Department Care Team ([facility] st Contact Info) Description 07/20/2024 Telephone [facility] [address] [place] [address] Kehinde Mc MD [address] [place] [address] Advice Allergies Active Allergy Reactions [...] Tablet before bedtime. 04/19/2022 Active nystatin (NYSTOP) 662703 UNIT/GM powderIndications:Cut aneous candidiasis Apply topically to [...] (HCC),COPD, group D, by GOLD 2017 classification ([facility]) USE 2 PUFFS BY MOUTH EVERY 4 HOURS NEEDED SHORT OF BREATH 6.7 g 5 11/24/2021 Active Magnesium Oxide 400 (241.3 Mg) MG Oral TabletIndications:Cor onary artery disease involving [place] coronary artery of [place] heart without angina pectoris Take by mouth [...] MG Oral TabletIndications:Cor onary artery disease involving [place] coronary artery of [place] heart without angina pectoris TAKE 1 TABLET [...] 30 Capsule 05/30/2024 Active FreeStyle Js 3 [place] DeviceIndications:Typ e 2 diabetes mellitus with hemoglobin A1c goal of less than 8.0% ([facility]) Use as directed. 1 Each 05/30/2024 [...] Hour (toPROL XL)Indications:Harman ry artery disease involving [place] coronary artery of [place] heart without angina pectoris TAKE 1 & [...] hemorrhage 10/04/2020 Coronary artery disease invo lving [place] heart without angina pectoris 10/04/2020 COPD, group [...] Calculus of kidney 08/20/2015 8 Overview: right, [place] CT Vitamin D deficiency 01/31/2015 018 Body [...] mRNA, LNP-s, No Pre serve, 2-Dose Series ([employer]) 01/02/2021,12/05/2020 DTP Vaccine 07/19/2017,04/03/2014 Hepatitis B, 20+ [...] Reason for patient's call: ALEXANDER Remy from [facility] called would like to know if provider reviewed patient's urinalysis and if patient will be starting antibiotics.Unable to reach DNL. Sandrita requesting acall back. documented in this encounter Plan of Treatment Upcoming Encounters Date Type Department Care Team (Late st Contact Info) Description 07/25/2024 7:00 AM EST Laboratory Lab Mobile Phlebotomy [facility] [address] [place] [address] Mvmg, Gml Mobile Home Draw [address] [employer] [place] [address] 07/26/2024 6:00 AM EST Anticoagulation Centralized Clinical Pharmacy Services, Ciera Griffin [address] [place] [address] [place] [address] [facility] [address] [place] [address] Health Maintenance Due Date Last Done Comments DISCUSS TOBACCO CESSATION (REFER TO SMARTSET #7394) 1970 HIV Screening 1985 Pneumococcal Vaccine: Pediatrics [...] this encounter Medical Devices Implanted Type Area Plodding Operator Device Identifier Shelf Expiration Date Model / Serial / Lot Tube Flex 3.0x2.5 [id number] - [id number] Implanted:Qty: 1 on 12/07/2014 by Juancarlos Trinidad MD at [facility] Left: Finger [employer] : ORTHOPAEDICS 11/18/2015 [id number] / / [id number] documented as of this encounter Advance Directives [...] (no specific identity) Health Care Power of Slps Care Teams Overedge Machine Operator Relationship Specialty Start Date End Date Kehinde Mc MD [address] [place] [address] PCP - General Internal Medicine 03/28/24 documented as of this encounter
--- OUTSIDE RECORDS SUMMARY | 2024-08-01 04:33 | External Medical Summary ---
Author Name Unknown Address Unknown Organization K0G:[facility] [place] [address] [place] [address] Laboratory Report Ordering Provider Test Date Status TULIO TRONCOSO 07/18/2024 08:14:00 Final Warfarin Therapy
INR: 2 .0-3.0 conventional anticoagulation
INR: 2.5- 3.5 high intensity anticoagulation Observation Date Value Abnormality Reference (Units ) Status PT 07/18/2024 08:14:00 21.5 Above high normal 11 .6-15.2 (seconds) Final INR 07/18/2024 08:14:00 1.8 Above high normal 0. 8-1.2 Final Performing Location [facility] [place] [address] [place] [address]
--- OUTSIDE RECORDS SUMMARY | 2024-08-01 04:33 | External Medical Summary | Summary of Care ---
Author Name Unknown Organization [facility] Address [address] [place] [address] Phone [phone] Care Team Providers Care Retail Worker Name Role Phone Kehinde Mc MD Primary Care Provider [phone] Encounter Details Date Type Department Care Team (Late st Contact Info) Description 07/18/2024 Orders Only Lab Mobile Phlebotomy [facility] [address] [place] [address] Keren Sanchez, [facility] [address] [place] [address] Chronic diastolic heart failure (HCC)* Allergies Active [...] as of this encounter (statuses as of 07/18/2024) Medications Medication Sig Dispensed Refills Start Date [...] Tablet before bedtime. 04/19/2022 Active nystatin (NYSTOP) 326334 UNIT/GM powderIndications:Cut aneous candidiasis Apply topically to affected area 3 times a day. 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 ([facility]) Place 1 Tab under the tongue every [...] MG Oral TabletIndications:Cor onary artery disease involving [place] coronary artery of [place] heart without angina pectoris Take by mouth [...] than 8.0% ([facility]) Use 3 times daily as directed 1 Kit 08/31/2023 Active True Metrix Blood Glucose Test In Vitro Strip (Glucose Blood)Indications:Typ e 2 diabetes mellitus with hemoglobin A1c goal of less than 8.0% ([facility]) Use 3 times daily as directed 300 Strip 3 08/31/2023 Active TRUEplus Lancets 33GIndications:Type 2 diabetes mellitus with hemoglobin A1c goal of less than 8.0% ([facility]) Use 3 times daily as directed 300 [...] MG Oral TabletIndications:Cor onary artery disease involving [place] coronary artery of [place] heart without angina pectoris TAKE 1 TABLET [...] 30 Capsule 05/30/2024 Active FreeStyle Js 3 [place] DeviceIndications:Typ e 2 diabetes mellitus with hemoglobin A1c goal of less than 8.0% ([facility]) Use as directed. 1 Each 05/30/2024 Active [...] Hour (toPROL XL)Indications:Harman ry artery disease involving [place] coronary artery of [place] heart without angina pectoris TAKE 1 & [...] as of this encounter (statuses as of 07/18/2024) Active Problems Problem Noted Date Diagnosed Date [...] hemorrhage 10/04/2020 Coronary artery disease invo lving [place] heart without angina pectoris 10/04/2020 COPD, group [...] as of this encounter (statuses as of 07/18/2024) Resolved Problems Problem Noted Date Diagnosed Date [...] Calculus of kidney 08/20/2015 8 Overview: right, [place] CT Vitamin D deficiency 01/31/2015 018 Body [...] as of this encounter (statuses as of 07/18/2024) Immunizations Name Administration Dates Next Due COVID-19 mRNA, LNP-s, No Pre serve, 2-Dose Series (M-SIX) 01/02/2021,12/05/2020 DTP Vaccine 07/19/2017,04/03/2014 Hepatitis B, 20+ [...] Care Team (Late st Contact Info) Description 07/18/2024 7:00 AM EDT Laboratory Lab Mobile Phlebotomy [facility] [address] [place] [address] [facility], [facility] Mobile Home Draw [address] [place] [address] Chronic diastolic heart failure (HCC) 07/19/2024 6:00 AM EDT Anticoagulation Centralized Clinical Pharmacy Services, Ciera Griffin [address] [place] [address] [place] Richardson [address] [place] [address] Scheduled Orders Name Type Priority Associated Diagnoses Orde r Schedule PT INR Lab Routine Chronic diastolic heart failure (HCC) Expected: 07/18/2024, Expires: 07/18/2025 Health Maintenance Due Date Last Done Comments DISCUSS TOBACCO CESSATION (REFER TO SMARTSET #6173) 1970 HIV Screening 1985 Pneumococcal Vaccine: Pediatrics [...] this encounter Medical Devices Implanted Type Area Mica Layer Device Identifier Shelf Expiration Date Model / Serial / Lot Tube Flex 3.0x2.5 [id number] - [id number] Implanted:Qty: 1 on 12/07/2014 by Juancarlos Trinidad MD at [facility] Left: Finger [employer] : ORTHOPAEDICS 11/18/2015 [id number] / / [id number] documented as of this encounter Visit Diagnoses [...] (no specific identity) Health Care Power of Optomechanical Technician Care Teams Retail Worker Relationship Specialty Start Date End Date Kehinde Mc MD [address] [place] [address] PCP - General Internal Medicine 03/28/24 documented as of this encounter
--- OUTSIDE RECORDS SUMMARY | 2024-08-01 04:33 | External Medical Summary | Summary of Care ---
Author Name Unknown Organization [facility] Address [address] [place] [address] Phone [phone] Care Team Providers Care Cement Conveyor Operator Name Role Phone Kehinde Mc MD Primary Care Provider [phone] Reason for Visit * Reason Onset Date Comments Fax 05/18/2024 Encounter Details Date Type Department Care Team (Late st Contact Info) Description 05/18/2024 Telephone [facility] [address] [place] [address] Kehinde Mc MD [address] [place] [address] Fax Allergies Active Allergy Reactions [...] as of this encounter (statuses as of 07/19/2024) Medications Medication Sig Dispensed Refills Start Date [...] before bedtime. 04/19/20 22 Active nystatin (NYSTOP) 439203 UNIT/GM powderIndications:C utaneous candidiasis Apply topically to [...] MG Oral TabletIndications:C oronary artery disease involving [place] coronary artery of [...] Tablet 2 04/21/20 23 Active Potassium Chloride Terar ER 20 MEQ Oral Tablet Extended ReleaseIndications: [...] MG Oral TabletIndications:C oronary artery disease involving [place] coronary artery of [...] Hour (toPROL XL)Indications:Freddie nary artery disease involving [place] coronary artery of [...] fill) Cyclobenzaprine HCl 10 MG Oral Tablet (Flexeril)Juliotio ns:Chronic pain syndrome TAKE 1 TABLET TWICE [...] as of this encounter (statuses as of 07/19/2024) Active Problems Problem Noted Date Diagnosed Date [...] as of this encounter (statuses as of 07/19/2024) Resolved Problems Problem Noted Date Diagnosed Date [...] Calculus of kidney 08/20/2015 8 Overview: right, [place] CT Vitamin D deficiency 01/31/2015 018 Body [...] as of this encounter (statuses as of 07/19/2024) Immunizations Name Administration Dates Next Due COVID-19 mRNA, LNP-s, No Pre serve, 2-Dose Series (Numonyx) 01/02/2021,12/05/2020 DTP Vaccine 07/19/2017,04/03/2014 Hepatitis B, 20+ [...] encounter Miscellaneous Notes * Addendum Note - Joey Saldaña RPh - 05/22/2024 9:19 AM EDTAddended by: JOEY SALDAÑA on: 05/22/2024 09:19 AM Modules accepted: Orders * Telephone Encounter - Joey Saldaña RPh - 05/22/2024 9:16 AM EDT Patient was identified by having an A1c >9%. Please sign pended referral to [facility] for diabetes management if appropriate. Given increased A1C (only actively taking Glipizide) pending [facility] referral. Hemoglobin AIC Results: Lab Results Component Value Date/Time HEMOGLOBIN A1C - AMBIKA 9.4 (H) 05/15/2024 09:13 AM Joey Saldaña [...] EST Laboratory Lab Mobile Phlebotomy [facility] [address] [facility] [place] [address] [facility], Gml Mobile Home Draw [address] [facility] [place] [address] 07/26/2024 6:00 AM EST Anticoagulation Centralized Clinical Pharmacy Services, Ciera Griffin [address] [place] [address] [place] [address] [place] [address] Health Maintenance Due Date Last Done Comments DISCUSS TOBACCO CESSATION (REFER TO SMARTSET #8034) 1970 HIV Screening 1985 Pneumococcal Vaccine: Pediatrics [...] this encounter Medical Devices Implanted Type Area Offset Assistant Press Operator Device Identifier Shelf Expiration Date Model / Serial / Lot Tube Flex 3.0x2.5 [id number] - [id number] Implanted:Qty: 1 on 12/07/2014 by Juancarlos Trinidad MD at [facility] Left: Finger [employer] : ORTHOPAEDICS 11/18/2015 [id number] / / [id number] documented as of this encounter Visit Diagnoses Diagnosis Type 2 diabetes mellitus with hemoglobin A1c goal of less than 8.0% ([facility])- Primary documented in this encounter Advance Directives [...] (no specific identity) Health Care Power of Delivery Room Clerk Care Teams Cement Conveyor Operator Relationship Specialty Start Date End Date Kehinde Mc MD [address] [place] [address] PCP - General Internal Medicine 03/28/24 documented as of this encounter
--- OUTSIDE RECORDS SUMMARY | 2024-08-01 04:33 | External Medical Summary | Summary of Care ---
Author Name Unknown Organization [facility] Address [address] [place] [address] Phone [phone] Care Team Providers Care Usability Architect Name Role Phone Kehinde Mc MD Primary Care Provider Reason for Visit * Reason Onset Date Comments Order Request 07/11/2024 Encounter Details Date Type Department Care Team (Late st Contact Info) Description 07/11/2024 Telephone [facility] [address] [place] [address] Kehinde Mc MD [address] [place] [address] Order Request Allergies Active Allergy Reactions Criticality Noted [...] Tablet before bedtime. 04/19/2022 Active nystatin (NYSTOP) 245562 UNIT/GM powderIndications:Cut aneous candidiasis Apply topically to [...] MG Oral TabletIndications:Cor onary artery disease involving [place] coronary artery of [place] heart without angina pectoris Take by mouth [...] less than 8.0% ([facility]) Use 3 times daily as directed 1 Kit 08/31/2023 Active True Metrix Blood Glucose Test In Vitro Strip (Glucose Blood)Indications:Typ e 2 diabetes mellitus with hemoglobin A1c goal of less than 8.0% ([facility]) Use 3 times daily as directed 300 Strip 3 08/31/2023 Active TRUEplus Lancets 33GIndications:Type 2 diabetes mellitus with hemoglobin A1c goal of less than 8.0% ([facility]) Use 3 times daily as directed 300 [...] MG Oral TabletIndications:Cor onary artery disease involving [place] coronary artery of [place] heart without angina pectoris TAKE 1 TABLET [...] 30 Capsule 05/30/2024 Active FreeStyle Js 3 [place] DeviceIndications:Typ e 2 diabetes mellitus with hemoglobin A1c goal of less than 8.0% ([facility]) Use as directed. 1 Each 1 05/30/2024 Active FreeStyle Js 3 Sensor Use as directed every 14 days. 6 Each 3 05/30/2024 Active Ondansetron HCl 4 MG Oral Tablet (Zofran)Indications:N ausea TAKE 1 TABLET BY MOUTH EVERY 8 HOURS NEEDED NAUSEA 20 Tablet 1 05/30/2024 Active DULoxetine HCl 60 MG Oral [...] Hour (toPROL XL)Indications:Harman ry artery disease involving [place] coronary artery of [place] heart without angina pectoris TAKE 1 & [...] hemorrhage 10/04/2020 Coronary artery disease invo lving [place] heart without angina pectoris 10/04/2020 COPD, group [...] Calculus of kidney 08/20/2015 8 Overview: right, [place] CT Vitamin D deficiency 01/31/2015 018 [...] mRNA, LNP-s, No Pre serve, 2-Dose Series (Element ID) 01/02/2021,12/05/2020 DTP Vaccine 07/19/2017,04/03/2014 Hepatitis B, 20+ [...] encounter Miscellaneous Notes * Telephone Encounter - Zohreh Rome LPN - 07/14/2024 2:05 PM EDT Sandrita from [facility] calling. She is dropping off UA to [facility] today. This is fyi * Telephone Encounter - Kehinde Mc MD - 07/14/2024 11:49 AM EDT If pt has progressing urinary sx, please see a provider anytime soon And advise pt or family can drop the urine sample anytime * Telephone Encounter - Kehinde Mc MD - 07/13/2024 2:55 PM EDT I think someone should just drop off his urine sample Someone should brain picker urine sample cup from clinic * Telephone Encounter - Doreen Perez LPN - 07/13/2024 2:15 PM EDT I called and spoke with patient and he is requesting an order be placed for mobile phlebotomy to come soon than 07/18/2024 so he can get ABX ruel if needed. I asked the patient if he was able to havesomeone come in and get a collection cup and bring it back in with a sample and he states that was not possible and if he can't get the UA taken sooner he should just got to the hospital. Is It possible for someone to go out to him sooner? * Telephone Encounter - Shreya Penn DO - 07/12/2024 3:02 PM EDT Order placed * Telephone Encounter - Keren Carcamo MED ASSIST - 07/12/2024 2:59 PM EDT Please advise, can the order be placed for a UA? * Telephone Encounter - Mattie Waters OSA - 07/11/2024 12:33 PM EDT An order was requested for this patient. Name of Requesting Provider: Patient's home health nurse Order Requested: UA Diagnosis/Reason for Request: UTI symptoms If order request is for Mammogram: Is the patient having any breast symptoms? N/A Is there a chance of ? N/A Has the patient had any breast problems in the past? NA What location AND department does the patient wish to have their order completed at? Mobile lab if possible Fax Number, if applicable: unknown Please let patient know once this is ordered, thank you. If the caller is not a current patient, please advise the patient to call their current PCP to havethe order's prior to being seen in our office. The patient was informed that our providers would not order anything (medication, labs, etc.) prior to being seen. documented in this encounter Plan of Treatment Upcoming Encounters Date Type Department Care Team (Late st Contact Info) Description 07/25/2024 7:00 AM EST Laboratory Lab Mobile Phlebotomy [facility] [address] [place] [address] [facility], Gml Mobile Home Draw [address] [place] [phone] 07/26/2024 6:00 AM EST Anticoagulation Centralized Clinical Pharmacy Services, Ciera Griffin [address] [place] [address] [place] Richardson [address] [facility] [place] [address] Health Maintenance Due Date Last Done Comments DISCUSS TOBACCO CESSATION (REFER TO SMARTSET #3833) 1970 HIV Screening 1985 Pneumococcal Vaccine: Pediatrics [...] FOR COPD 04/04/2025 04/04/2024 GFR 05/15/2025 05/15/2024, 1 02/2024, 04/03/2024, Additional history exists Albumin/Creatinine Ratio [...] this encounter Medical Devices Implanted Type Area Mechanic And Welder Device Identifier Shelf Expiration Date Model / Serial / Lot Tube Flex 3.0x2.5 [id number] - [id number] Implanted:Qty: 1 on 12/07/2014 by Juancarlos Trinidad MD at [facility] Left: Finger [employer] : ORTHOPAEDICS 11/18/2015 [id number] / / [id number] documented as of this encounter Visit Diagnoses Diagnosis Acute cystitis without hematuria- Primary Acute cystitis documented in this encounter Advance Directives * [...] (no specific identity) Health Care Power of Bundles Hanger Care Teams Usability Architect Relationship Specialty Start Date End Date Kehinde Mc MD [address] [place] [address] PCP - General Internal Medicine 03/28/24 documented as of this encounter
--- OUTSIDE RECORDS SUMMARY | 2024-08-01 04:33 | External Medical Summary | Summary of Care ---
Author Name Unknown Organization [facility] Address [address] [place] [address] Phone [phone] Care Team Providers Care Market Developer Name Role Phone Kehinde Mc MD Primary Care Provider [phone] Reason for Visit * Reason Comments Dosage Adjustment Via Phone (anticoag Cl inic) Encounter Details Date Type Department Care Team ([facility] Contact Info) Description 07/19/2024 6:00 AM EDT Anticoagulation Centralized Clinical Pharmacy Services, Cier[facility] Griffin [address] [place] [address] [place] Richardson [address] [place] [address] History of pulmonary embolism* Allergies Active Allergy [...] Tablet before bedtime. 04/19/2022 Active nystatin (NYSTOP) 423500 UNIT/GM powderIndications:Cut aneous candidiasis Apply topically to [...] MG Oral TabletIndications:Cor onary artery disease involving [place] coronary artery of [place] heart without angina pectoris Take by mouth [...] MG Oral TabletIndications:Cor onary artery disease involving [place] coronary artery of [place] heart without angina pectoris TAKE 1 TABLET BY MOUTH IN THE MORNING. 30 Tablet 5 04/28/2024 Active glipiZIDE 10 MG Oral Tablet (Glucotrol)Indication s:Diabetes mellitus with nephropathy ([facility]) TAKE ONE TABLET BY MOUTH 2 TIMES [...] 30 Capsule 05/30/2024 Active FreeStyle Js 3 [place] DeviceIndications:Typ e 2 diabetes mellitus with hemoglobin A1c goal of less than 8.0% ([facility]) Use as directed. 1 Each 1 05/30/2024 [...] Hour (toPROL XL)Indications:Harman ry artery disease involving [place] coronary artery of [place] heart without angina pectoris TAKE 1 & [...] hemorrhage 10/04/2020 Coronary artery disease invo lving [place] heart without angina pectoris 10/04/2020 COPD, group [...] Calculus of kidney 08/20/2015 8 Overview: right, [place] CT Vitamin D deficiency 01/31/2015 018 Body [...] mRNA, LNP-s, No Pre serve, 2-Dose Series (Periscope) 01/02/2021,12/05/2020 DTP Vaccine 07/19/2017,04/03/2014 Hepatitis B, 20+ [...] this encounter Progress Notes * Keren Sanchez, [facility] - 07/19/2024 7:50 AM EDT Images from the original note were not included. Coumadin Clinic (region specific) Objective Current Warfarin Dose As of 07/19/2024 Warfarin maintenance plan: 2.5 mg (5 mg x 0.5) every Wed, Micki, Sat; 5 mg (5 mg x 1) all other days INR Result As of 07/19/2024 INR goal: 2.0-3.0 INR used for dosin.8 (07/18/2024) Assessment & Plan Warfarin Plan As of 07/19/2024 Full warfarin instructions: 07/19: 7.5 mg; Otherwise 2.5 mg every Tue, Micki, Sat; 5 mg all other days Next INR check: 07/25/2024 Repeat PT/INR in 1 week(s) Weekly dose: not changed Additional Dosing Information: [facility] Tues GML at this time Tech to contact patient with dose instructions as noted. Keren Sanchez RPh 07/19/2024, 7:50 AM documented in this encounter Plan of Treatment Upcoming Encounters Date Type Department Care Team (Late st Contact Info) Description 07/25/2024 7:00 AM EST Laboratory Lab Mobile Phlebotomy [facility] [address] [facility] [place] [address] M[facility], Gml Mobile Home Draw [address] [facility] [place] [phone] 07/26/2024 6:00 AM EST Anticoagulation Centralized Clinical Pharmacy Services, Ciera Griffin [address] [place] [address] [place] Richardson [address] [facility], [address] [place] [address] Health Maintenance Due Date Last Done Comments DISCUSS TOBACCO CESSATION (REFER TO SMARTSET #5814) 1970 HIV Screening 1985 Pneumococcal Vaccine: Pediatrics [...] shot) (#1) 2024 08/26/2013 HbA1c 11/15/2024 05/15/2024, 0704/2024, 03/19/2022, Additional history exists Diabetic Foot Exam [...] this encounter Medical Devices Implanted Type Area Valve Mechanic Device Identifier Shelf Expiration Date Model / Serial / Lot Tube Flex 3.0x2.5 [id number] - [id number] Implanted:Qty: 1 on 12/07/2014 by Juancarlos Trinidad MD at [facility] Left: Finger [employer]ON : ORTHOPAEDICS 11/18/2015 [id number] / / [id number] documented as of this encounter Visit Diagnoses [...] (no specific identity) Health Care Power of Timber Treatment Plant Operator Care Teams Market Developer Relationship Specialty Start Date End Date Kehinde Mc MD [address] [place] [address] PCP - General Internal Medicine 03/28/24 documented as of this encounter
--- OUTSIDE RECORDS SUMMARY | 2024-08-01 04:33 | External Medical Summary ---
Author Name Unknown Address Unknown Organization K01:[facility] [place] - [address] [facility] [address] Laboratory Report Ordering Provider Test Date Status STACEY SCHAFER 07/18/2024 08:14:00 Final <10,000 colonies/ml normal f waldemar, one colony type Observation Date Value Abnormality Reference (Units ) Status Bacteria identified in Specimen by Culture 07/18/2024 08:14:00 [id number]^PROVIDE NCIA RETTGERI Abnormal Final >100,000 colonies/mL Provide ncia rettgeri Performing Location [facility] [place] - [address] [facility] [address] Ordering Provider Test Date Status STACEY SCHAFER 07/18/2024 08:14:00 Final Observation Date Value Abnormality Reference (Units ) Status Ampicillin + Sulbactam 07/18/2024 08:14:00 <=2 Susceptible Final Cefepime susceptibility 07/18/2024 08:14:00 <=1 Susceptible Final Ceftriaxone suceptibility 07/18/2024 08:14:00 <=1 Susceptible Final Ciprofloxacin 07/18/2024 08:14:00 <=0.25 Susceptible Final Due to serious side effects, the FDA has advised against using Ciprofloxacin to treat uncomplicated UTIs and respiratory tract infections unless there are no alternative treatment options. Gentamicin susceptibility 07/18/2024 08:14:00 <=1 Susc eptible Final Piperacillin + Tazobactamsusceptibility 07/18/2024 08:14:00 <=4 Susceptible Final TMP-SMZ susceptibility 07/18/2024 08:14:00 <=20 Suscept ible Final Test: Culture, Urine, Quanti tative
Specimen Source: Urine, Catheter
Specimen Type: Urine
Specimen Date: 07/18/2024 0814
Result Date: 07/21/2024 1205
Result Status: Final result
Abnormal: Yes
Resulting Lab: [facility] [place]
[address]
[place] [address]

CULTURE

>100,000 colonies/mL Providencia rettgeri (Abnormal)

<10,000 colonies/ml normal isabel, one colony type

SUSCEPTIBILITY

Providencia
rettgeri
METHOD MICROBROTH
DILUTIONS

AMPICILLIN/SULBACTAM <=2 Susceptible
CEFEPIME <=1 Susceptible
CEFTRIAXONE <=1 Susceptible
CIPROFLOXACIN <=0.25 Susceptible
[1]
GENTAMICIN <=1 Susceptible
PIPERACILLIN TAZOBACTAM <=4 Susceptible
TRIMETH/SULFAMETHOXAZOLE <=20 Susceptible

[1] Due to serious side effects, the FDA has advised against using
Ciprofloxacin to treat uncomplicated UTIs and respiratory tract infections
unless there are no alternative treatment options.

null Performing Location LAB[facility]ORY [facility] – [place] - [address] [facility] [address]
--- OUTSIDE RECORDS SUMMARY | 2024-08-01 04:34 | External Medical Summary | Summary of Care ---
Author Name Unknown Organization [facility] Address [address] [place] [address] Phone [phone] Care Team Providers Care Licensed Final Expense Agents Name Role Phone Kehinde Mc MD Primary Care Provider [phone] Reason for Visit * Reason Comments Outpatient Testing Encounter Details Date Type Department Care Team (Late st Contact Info) Description 07/14/2024 3:10 PM EDT Laboratory Laboratory, [place] [address] [place] [address] [place], [facility] [address] [place] [address] Acute cystitis without hematuria Allergies Active Allergy Reactions Criticality Noted Date [...] as of this encounter (statuses as of 07/14/2024) Medications Medication Sig Dispensed Refills Start Date [...] Tablet before bedtime. 04/19/2022 Active nystatin (NYSTOP) 764891 UNIT/GM powderIndications:Cut aneous candidiasis Apply topically to [...] MG Oral TabletIndications:Cor onary artery disease involving hughes coronary artery of hughes heart without angina pectoris Take by mouth [...] hemoglobin A1c goal of less than 8.0% ([facility]) Use 3 times daily as directed 1 Kit 08/31/2023 Active True Metrix Blood Glucose Test In Vitro Strip (Glucose Blood)Indications:Typ e 2 diabetes mellitus with hemoglobin A1c goal of less than 8.0% ([facility]) Use 3 times daily as directed 300 Strip 3 08/31/2023 Active TRUEplus Lancets 33GIndications:Type 2 diabetes mellitus with hemoglobin A1c goal of less than 8.0% ([facility]) Use 3 times daily as directed 300 [...] MG Oral TabletIndications:Cor onary artery disease involving hughes coronary artery of hughes heart without angina pectoris TAKE 1 TABLET [...] 30 Capsule 05/30/2024 Active FreeStyle Js 3 [place] DeviceIndications:Typ e 2 diabetes mellitus with hemoglobin A1c goal of less than 8.0% ([facility]) Use as directed. 1 Each 05/30/2024 Active [...] Hour (toPROL XL)Indications:Harman ry artery disease involving hughes coronary artery of hughes heart without angina pectoris TAKE 1 & [...] as of this encounter (statuses as of 07/14/2024) Active Problems Problem Noted Date Diagnosed Date [...] hemorrhage 10/04/2020 Coronary artery disease invo lving hughes heart without angina pectoris 10/04/2020 COPD, group [...] as of this encounter (statuses as of 07/14/2024) Resolved Problems Problem Noted Date Diagnosed Date [...] Calculus of kidney 08/20/2015 8 Overview: right, [place] CT Vitamin D deficiency 01/31/2015 018 Body [...] as of this encounter (statuses as of 07/14/2024) Immunizations Name Administration Dates Next Due COVID-19 mRNA, LNP-s, No Pre serve, 2-Dose Series (Instagram) 01/02/2021,12/05/2020 DTP Vaccine 07/19/2017,04/03/2014 Hepatitis B, 20+ [...] AM EDT Laboratory Lab [facility] [address] [place] [address] [facility], [facility] Mobile Home Draw [address] [place] [address] 07/19/2024 6:00 AM EDT Anticoagulation Centralized Clinical Pharmacy Services, Ciera Griffin [address] [place] [address] AURELIA Richardson [address] [facility] [place] [address] Pending Results Name Type Priority Associated Diagnoses Date /Time URINALYSIS, REFLEX TO CULTURE (NOT FOR NEUTROPENIC PATIENTS) Lab Routine Acute cystitis without hematuria 07/14/2024 2:53 PM EDT URINALYSIS, REFLEX TO CULTURE (CUP ONLY) Lab Routine Acute cystitis without hematuria 07/14/2024 2:53 PM EDT URINALYSIS, REFLEX TO CULTURE Lab Routine Acute cystitis without hematuria 07/14/2024 2:53 PM EDT Health Maintenance Due Date Last Done Comments DISCUSS TOBACCO CESSATION (REFER TO SMARTSET #5523) 1970 HIV Screening 1985 Pneumococcal Vaccine: Pediatrics [...] this encounter Medical Devices Implanted Type Area Clinic Mgr Device Identifier Shelf Expiration Date Model / Serial / Lot Tube Flex 3.0x2.5 [id number] - [id number] Implanted:Qty: 1 on 12/07/2014 by Juancarlos Trinidad MD [place] [facility] [place]: Finger [employer]ON : ORTHOPAEDICS 11/18/2015 [id number] / / [id number] documented as of this encounter Visit Diagnoses Diagnosis Acute cystitis without hematuria Acute cystitis documented in this encounter Advance [...] (no specific identity) Health Care Power of V Belt Skiver Care Teams Licensed Final Expense Agents Relationship Specialty Start Date End Date Kehinde Mc MD [address] [facility] [place] [address] PCP - General Internal Medicine 03/28/24 documented as of this encounter
--- OUTSIDE RECORDS SUMMARY | 2024-08-01 04:34 | External Medical Summary | Summary of Care ---
Author Name Unknown Organization [facility] Address [address] [place] [address] Phone [phone] Care Team Providers Care Fire Supervisor Name Role Phone Kehinde Mc MD Primary Care Provider [phone] Reason for Visit * Reason Onset Date Comments Test Results 07/10/2024 Encounter Details Date Type Department Care Team (Late st Contact Info) Description 07/10/2024 Telephone [facility] [address] [place] [address] Kehinde Mc MD [address] [place] [address] Test Results Allergies Active Allergy Reactions Criticality [...] Tablet before bedtime. 04/19/2022 Active nystatin (NYSTOP) 430457 UNIT/GM powderIndications:Cut aneous candidiasis Apply topically to [...] MG Oral TabletIndications:Cor onary artery disease involving de[place] coronary artery of de[place] heart without angina pectoris Take by mouth [...] A1c goal of less than 8.0% ([facility]) Use 3 times daily as directed 1 Kit 08/31/2023 Active True Metrix Blood Glucose Test In Vitro Strip (Glucose Blood)Indications:Typ e 2 diabetes mellitus with hemoglobin A1c goal of less than 8.0% ([facility]) Use 3 times daily as directed 300 Strip 3 08/31/2023 Active TRUEplus Lancets 33GIndications:Type 2 diabetes mellitus with hemoglobin A1c goal of less than 8.0% ([facility]) Use 3 times daily as directed [...] MG Oral TabletIndications:Cor onary artery disease involving [place] coronary artery of de[place] heart without angina pectoris TAKE 1 TABLET [...] 30 Capsule 05/30/2024 Active FreeStyle Js 3 [place] DeviceIndications:Typ e 2 diabetes mellitus with hemoglobin A1c goal of less than 8.0% ([facility]) Use as directed. 1 Each 1 [...] Hour (toPROL XL)Indications:Harman ry artery disease involving [place] coronary artery of deering heart without angina pectoris TAKE 1 & [...] hemorrhage 10/04/2020 Coronary artery disease invo lving deering heart without angina pectoris 10/04/2020 COPD, group [...] Calculus of kidney 08/20/2015 8 Overview: right, [place] CT Vitamin D deficiency 01/31/2015 018 Body [...] mRNA, LNP-s, No Pre serve, 2-Dose Series (Minimally invasive devices) 01/02/2021,12/05/2020 DTP Vaccine 07/19/2017,04/03/2014 Hepatitis B, 20+ [...] Encounter - Zohreh Rome LPN - 07/14/2024 2:03 PM EDT Sandrita from [facility] is dropping off UA today to [facility]. * Telephone Encounter - Zohreh Rome LPN - 07/13/2024 9:35 AM EDT Sandrita from [facility] calling to inquiring about UA results from 07/11. Informed of message below. She verbalized understanding. Sandrita indicates orders will need sent to mobile lab to be repeated. * Telephone Encounter - Kehinde Mc MD - 07/11/2024 12:54 PM EDT Urine culture didn't show one bacteria but possible multiple on medical record Usually contamination but better to repeat Will order U cx Please get it done * Telephone Encounter - Yarely Cuellar LPN - 07/11/2024 10:58 AM EDT Please advise as below. Thank you. * Telephone Encounter - Suzan Espinoza OSA - 07/10/2024 2:37 PM EDT Who is Requesting Test Results: Sandrita Primary Care Provider : Kehinde Mc MD Tests Results Requested : Urine culture Date of Test : 06/30/24 Location of Test: [facility] Ordering Provider: [facility] Patient has been made aware that the turnaround time for test results are typically as follows: Laboratory results = within 2-3 days ([facility]), 3-5 days (Non-[facility], ie. [facility]) Urine Cultures = within 2-3 days depending on growth within the culture Pathology results (biopsy results/PAP) = 1-2 weeks Radiology results = about 1 week Cologuard results = within 2 weeks from the shipment date COVID testing = about 24 hours documented in this encounter Plan of Treatment Upcoming Encounters Date Type Department Care Team (Late st Contact Info) Description 07/18/2024 7:00 AM EDT Laboratory Lab [facility] [address] [place] [address] [facility], Gml Mobile Home Draw [address] [place] [address] [address] 07/19/2024 6:00 AM EDT Anticoagulation Centralized Clinical Pharmacy Services, [facility]iera Griffin [address] [place] [address] A[place] Richardson [address] [facility] [address] [place] [address] Scheduled Orders Name Type Priority Associated Diagnoses Orde r Schedule CULTURE, URINE, QUANTITATIVE Lab Routine Dysuria Expected: 07/11/2024, Expires: 07/11/2025 URINALYSIS, REFLEX TO MICROSCOPIC Lab Routine Dysuria Expected: 07/11/2024, Expires: 07/11/2025 Health Maintenance Due Date Last Done Comments [...] encounter Medical Devices Implanted Type Area Senior Clinician Device Identifier Shelf Expiration Date Model / Serial / Lot Tube Flex 3.0x2.5 [id number] - [id number] Implanted:Qty: 1 on 12/07/2014 by Juancarlos Trinidad MD at [facility] Left: Finger [employer]ON : ORTHOPAEDICS 11/18/2015 [id number] / / [id number] documented as of this encounter Visit Diagnoses Diagnosis Dysuria- Primary documented in this encounter Advance Directives [...] specific identity) Health Care Power of Inspector Integrated Circ[employer] Care Teams Fire Supervisor Relationship Specialty Start Date End Date Kehinde Mc MD [address] [place] [address] PCP - General Internal Medicine 03/28/24 documented as of this encounter
--- OUTSIDE RECORDS SUMMARY | 2024-08-01 04:34 | External Medical Summary | Summary of Care ---
Author Name Unknown Organization [facility] Address [address] [place] [address] Phone [phone] Care Team Providers Care Paper Bag Inspector Name Role Phone Kehinde Mc MD Primary Care Provider [phone] Reason for Visit * Reason Onset Date Comments Order Request 07/11/2024 Encounter Details Date Type Department Care Team (Late st Contact Info) Description 07/11/[address] [facility] [address] [place] [address] Kehinde Mc MD [address] [place] [address] Order Request Allergies Active Allergy [...] Tablet before bedtime. 04/19/2022 Active nystatin (NYSTOP) 767099 UNIT/GM powderIndications:Cut aneous candidiasis Apply topically to [...] MG Oral TabletIndications:Cor onary artery disease involving [place] coronary artery of [place] heart without angina pectoris Take by mouth [...] MG Oral TabletIndications:Cor onary artery disease involving [place] coronary artery of [place] heart without angina pectoris TAKE 1 TABLET [...] 30 Capsule 05/30/2024 Active FreeStyle Js 3 [place] DeviceIndications:Typ e 2 diabetes mellitus with hemoglobin A1c goal of less than 8.0% ([facility]) Use as directed. 1 Each 1 05/30/2024 [...] Hour (toPROL XL)Indications:Harman ry artery disease involving [place] coronary artery of [place] heart without angina pectoris TAKE 1 & [...] 01/24/2021 Opioid dependence, uncomplicated 01/22/2021 History of NH (myocardial infarction) 01/22/2021 Morbid obesity with BMI of 50.0-59.9, adult 09/20 History of subdural hematoma 10/04/2020 Gastroesophageal reflux disease without esophagi tis 10/04/2020 History of subarachnoid hemorrhage 10/04/2020 Coronary artery disease invo lving [place] heart without angina pectoris 10/04/2020 COPD, group [...] Calculus of kidney 08/20/2015 8 Overview: right, [place] CT Vitamin D deficiency 01/31/2015 018 Body [...] mRNA, LNP-s, No Pre serve, 2-Dose Series ([place]) 01/02/2021,12/05/2020 DTP Vaccine 07/19/2017,04/03/2014 Hepatitis B, 20+ [...] drop off his urine sample Someone should picker box operator urine sample cup from clinic * Telephone [...] EDT Laboratory Lab [facility] [address] [place] [address] M[facility], Gml Mobile Home Draw [address] [place] [address] 07/19/2024 6:00 AM EDT Anticoagulation Centralized Clinical Pharmacy Services, Ciera Griffin [address] [place] [address] AURELIA Richardson [address] [facility], [address] [place] [address] Scheduled Orders Name Type Priority Associated Diagnoses Orde r Schedule URINALYSIS, REFLEX TO CULTURE (NOT FOR NEUTROPENIC PATIENTS) Lab Routine Acute cystitis without hematuria Expected: 07/12/2024, Expires: 07/12/2025 Health Maintenance Due Date Last Done Comments DISCUSS TOBACCO CESSATION (REFER TO SMARTSET #7548) 1970 HIV Screening 1985 Pneumococcal Vaccine: Pediatrics [...] this encounter Medical Devices Implanted Type Area Project Development Director Device Identifier Shelf Expiration Date Model / Serial / Lot Tube Flex 3.0x2.5 [id number] - [id number] Implanted:Qty: 1 on 12/07/2014 by Juancarlos Trinidad MD at [facility] Left: Finger [employer]ON : ORTHOPAEDICS 11/18/2015 [id number] / / [id number] documented as of this encounter Visit Diagnoses [...] (no specific identity) Health Care Power of Reactor Operator Care Teams Paper Bag Inspector Relationship Specialty Start Date End Date Kehinde Mc MD [address] [place] [address] PCP - General Internal Medicine 03/28/24 documented as of this encounter
--- OUTSIDE RECORDS SUMMARY | 2024-08-01 04:34 | External Medical Summary | Summary of Care ---
Author Name Unknown Organization [facility] Address [address] [place] [address] Phone [phone] Care Team Providers Care Monitoring And Evaluation Advisor Name Role Phone Kehinde Mc MD Primary Care Provider [phone] Reason for Visit * Reason Comments Outpatient Testing Encounter Details Date Type Department Care Team (Late st Contact Info) Description 07/14/2024 3:10 PM EDT Laboratory Laboratory, [place] [address] [place] [address] [place], [facility] [address] [place] [address] Acute cystitis without hematuria Allergies Active Allergy [...] as of this encounter (statuses as of 2024) Medications Medication Sig Dispensed Refills Start Date [...] Tablet before bedtime. 04/19/2022 Active nystatin (NYSTOP) 269803 UNIT/GM powderIndications:Cut aneous candidiasis Apply topically to [...] MG Oral TabletIndications:Cor onary artery disease involving [place] coronary artery of [place] heart without angina pectoris Take by mouth [...] of less than 8.0% ([facility]) Use 3 times daily as directed 1 Kit 08/31/2023 Active True Metrix Blood Glucose Test In Vitro Strip (Glucose Blood)Indications:Typ e 2 diabetes mellitus with hemoglobin A1c goal of less than 8.0% ([facility]) Use 3 times daily as directed 300 Strip 3 08/31/2023 Active TRUEplus Lancets 33GIndications:Type 2 diabetes mellitus with hemoglobin A1c goal of less than 8.0% ([facility]) Use 3 times daily as directed [...] MG Oral TabletIndications:Cor onary artery disease involving [place] coronary artery of [place] heart without angina pectoris TAKE 1 TABLET [...] 30 Capsule 05/30/2024 Active FreeStyle Js 3 [place] DeviceIndications:Typ e 2 diabetes mellitus with hemoglobin A1c goal of less than 8.0% ([facility]) Use as directed. 1 Each 05/30/2024 [...] Hour (toPROL XL)Indications:Harman ry artery disease involving [place] coronary artery of [place] heart without angina pectoris TAKE 1 & [...] as of this encounter (statuses as of 2024) Active Problems Problem Noted Date Diagnosed Date [...] hemorrhage 10/04/2020 Coronary artery disease invo lving [place] heart without angina pectoris 10/04/2020 COPD, group [...] as of this encounter (statuses as of 2024) Resolved Problems Problem Noted Date Diagnosed Date [...] Calculus of kidney 08/20/2015 8 Overview: right, [place] CT Vitamin D deficiency 01/31/2015 018 Body [...] as of this encounter (statuses as of 2024) Immunizations Name Administration Dates Next Due COVID-19 mRNA, LNP-s, No Pre serve, 2-Dose Series ([place]) 01/02/2021,12/05/2020 DTP Vaccine 07/19/2017,04/03/2014 Hepatitis B, 20+ [...] EDT Laboratory Lab [facility] [address] [place] [address] [facility], Gml Mobile Home Draw [address] [place] [address] 07/19/2024 6:00 AM EDT Anticoagulation Centralized Clinical Pharmacy Services, Ciera Griffin [address] [place] [address] AURELIA Richardson [address] [facility] [place] [address] Pending Results Name Type Priority Associated Diagnoses Date /Time URINALYSIS, REFLEX TO CULTURE (NOT FOR NEUTROPENIC PATIENTS) Lab Routine Acute cystitis without hematuria 07/14/2024 2:53 PM EDT URINALYSIS, REFLEX TO CULTURE Lab Routine Acute cystitis without hematuria 07/14/2024 2:53 PM EDT Health Maintenance Due Date Last Done Comments DISCUSS TOBACCO CESSATION (REFER TO SMARTSET #0252) 1970 HIV Screening 1985 Pneumococcal Vaccine: Pediatrics [...] encounter Medical Devices Implanted Type Area Business Advisor Device Identifier Shelf Expiration Date Model / Serial / Lot Tube Flex 3.0x2.5 [id number] - [id number] Implanted:Qty: 1 on 12/07/2014 [place]ancarlos [place] [facility] [place] Finger [place] : ORTHOPAEDICS 11/18/2015 [id number] / / [id number] documented as of this encounter Procedures Procedure Name Priority Date/Time Associated Diagnosis Comments URINALYSIS, REFLEX TO CULTURE (CUP ONLY) Routine 07/14/2024 2:53 PM EDT Acute cystitis without hematuria documented in this encounter Results * URINALYSIS, REFLEX TO CULTURE (CUP ONLY) (07/14/2024 2:53 PM EDT) Urinalysis, Reflex to Culture Specimen Specimen collected and received 07/14/2024 4:01 PM EDT [facility] [place]rine Urine specimen obtained by clean catch procedure / Unknown Non-blood Collection / Unknown 07/14/2024 2:53 PM EDT 07/14/2024 2:53 PM EDT Shreya Penn DO LAB URINE ORDERABLES [facility] [address] [place] [address] documented in this encounter Visit Diagnoses Diagnosis Acute cystitis [...] (no specific identity) Health Care Power of Carpet Layer Care Teams Monitoring And Evaluation Advisor Relationship Specialty Start Date End Date Kehinde Mc MD [address] [place] [address] PCP - General Internal Medicine 03/28/24 documented as of this encounter
--- OUTSIDE RECORDS SUMMARY | 2024-08-01 04:34 | External Medical Summary | Summary of Care ---
Author Name Unknown Organization [facility] Address [address] [place] [address] Phone [phone] Care Team Providers Care Special Class Welder Name Role Phone Kehinde Mc MD Primary Care Provider [phone] Reason for Visit * Reason Onset Date Comments Order Request 07/11/2024 Encounter Details Date Type Department Care Team (Late st Contact Info) Description 07/11/2024 Telephone [facility] [address] [place] [address] Kehinde Mc MD [address] [place] [address] Order Request Allergies Active Allergy [...] Tablet before bedtime. 04/19/2022 Active nystatin (NYSTOP) 287285 UNIT/GM powderIndications:Cut aneous candidiasis Apply topically to [...] MG Oral TabletIndications:Cor onary artery disease involving [place] coronary artery of sun'[place] heart without angina pectoris Take by mouth [...] hemoglobin A1c goal of less than 8.0% ([facility]) Use 3 times daily as directed 1 Kit 08/31/2023 Active True Metrix Blood Glucose Test In Vitro Strip (Glucose Blood)Indications:Typ e 2 diabetes mellitus with hemoglobin A1c goal of less than 8.0% ([facility]) Use 3 times daily as directed 300 Strip 3 08/31/2023 Active TRUEplus Lancets 33GIndications:Type 2 diabetes mellitus with hemoglobin A1c goal of less than 8.0% ([facility]) Use 3 times daily as directed 300 [...] MG Oral TabletIndications:Cor onary artery disease involving sun'aq coronary artery of sun'[place] heart without angina pectoris TAKE 1 TABLET [...] 30 Capsule 05/30/2024 Active FreeStyle Js 3 [place] DeviceIndications:Typ e 2 diabetes mellitus with hemoglobin A1c goal of less than 8.0% ([facility]) Use as directed. 1 Each 1 05/30/2024 [...] Hour (toPROL XL)Indications:Harman ry artery disease involving sun'[place] coronary artery of sun'[place] heart without angina pectoris TAKE 1 & [...] hemorrhage 10/04/2020 Coronary artery disease invo lving [place] heart without angina pectoris 10/04/2020 COPD, group [...] of kidney 08/20/2015 8 Overview: right, [place] CT Vitamin D deficiency 01/31/2015 018 Body [...] mRNA, LNP-s, No Pre serve, 2-Dose Series ([place]) 01/02/2021,12/05/2020 DTP Vaccine 07/19/2017,04/03/2014 Hepatitis B, 20+ [...] - 07/14/2024 2:05 PM EDT Sandrita from [facility] calling. She is dropping off UA to [facility] lab today. This is fyi * Telephone [...] drop off his urine sample Someone should burr picker urine sample cup from clinic * [...] EDT Laboratory Lab [facility] [address] [place] [address] [facility], Gml Mobile Home Draw [address] [place] [address] 07/19/2024 6:00 AM EDT Anticoagulation Centralized Clinical Pharmacy Services, Ciera Griffin [address] [place] [address] [place] Richardson [address] [facility], [address] [place] [address] Scheduled Orders Name Type Priority Associated Diagnoses Orde r Schedule URINALYSIS, REFLEX TO CULTURE (NOT FOR NEUTROPENIC PATIENTS) Lab Routine Acute cystitis without hematuria Expected: 07/12/2024, Expires: 07/12/2025 Health Maintenance Due Date Last Done Comments DISCUSS TOBACCO CESSATION (REFER TO SMARTSET #8292) 1970 HIV Screening 1985 Pneumococcal Vaccine: Pediatrics [...] this encounter Medical Devices Implanted Type Area Radio Frequency Engineer Device Identifier Shelf Expiration Date Model / Serial / Lot Tube Flex 3.0x2.5 [id number] - [id number] Implanted:Qty: 1 on 12/07/2014 by Juancarlos Trinidad MD at [facility] Left: Finger [employer] : ORTHOPAEDICS 11/18/2015 [id number] / / [id number] documented as of this encounter Visit Diagnoses [...] (no specific identity) Health Care Power of Social Work Instructor Care Teams Special Class Welder Relationship Specialty Start Date End Date Kehinde Mc MD [address] [place] [address] PCP - General Internal Medicine 03/28/24 documented as of this encounter
--- OUTSIDE RECORDS SUMMARY | 2024-08-01 04:35 | External Medical Summary | Summary of Care ---
Author Name Unknown Organization [facility] Address [address] [place] [address] Phone [phone] Care Team Providers Care Web Weaver Name Role Phone Kehinde Mc MD Primary Care Provider [phone] Reason for Visit * Reason Onset Date Comments Order Request 07/11/2024 Encounter Details Date Type Department Care Team (Late st Contact Info) Description 07/11/2024 Telephone [facility] [address] [place] [address] Kehinde Mc MD [address] [place] [address] Order Request Allergies Active Allergy [...] Tablet before bedtime. 04/19/2022 Active nystatin (NYSTOP) 992611 UNIT/GM powderIndications:Cut aneous candidiasis Apply topically to [...] MG Oral TabletIndications:Cor onary artery disease involving [place] coronary artery of [place] heart without angina pectoris Take by mouth [...] MG Oral TabletIndications:Cor onary artery disease involving [place] coronary artery of [place] heart without angina pectoris TAKE 1 TABLET [...] Capsule 05/30/2024 Active FreeStyle Js 3 [place] DeviceIndications:Typ e 2 diabetes mellitus with hemoglobin A1c goal of less than 8.0% ([facility]) Use as directed. 1 Each 1 [...] Hour (toPROL XL)Indications:Harman ry artery disease involving [place] coronary artery of [place] heart without angina pectoris TAKE 1 & [...] hemorrhage 10/04/2020 Coronary artery disease invo lving [place] heart without angina pectoris 10/04/2020 COPD, group [...] Calculus of kidney 08/20/2015 8 Overview: right, [place] CT Vitamin D deficiency 01/31/2015 018 Body [...] mRNA, LNP-s, No Pre serve, 2-Dose Series (Smarty Ants) 01/02/2021,12/05/2020 DTP Vaccine 07/19/2017,04/03/2014 Hepatitis B, 20+ [...] off his urine sample Someone should picker feeder urine sample cup from clinic * Telephone [...] EDT Laboratory Lab Mobile [facility]le[facility] [address] [place] [address] Mvmg, Gml Mobile Home Draw [address] [place] [address] [address] 07/19/2024 6:00 AM EDT Anticoagulation Centralized Clinical Pharmacy Services, Ciera Griffin [address] [place] [address] [place] [address] [facility], [facility] [address] [place] [address] Scheduled Orders Name Type Priority Associated Diagnoses Orde r Schedule URINALYSIS, REFLEX TO CULTURE (NOT FOR NEUTROPENIC PATIENTS) Lab Routine Acute cystitis without hematuria Expected: 07/12/2024, Expires: 07/12/2025 Health Maintenance Due Date Last Done Comments DISCUSS TOBACCO CESSATION (REFER TO SMARTSET #6837) 1970 HIV Screening 1985 Pneumococcal Vaccine: Pediatrics [...] this encounter Medical Devices Implanted Type Area Or Director Device Identifier Shelf Expiration Date Model / Serial / Lot Tube Flex 3.0x2.5 [id number] - [id number] Implanted:Qty: 1 on 12/07/2014 by Juancarlos Trinidad MD at [facility] Left: Finger [employer]ANDON : ORTHOPAEDICS 11/18/2015 [id number] / / [id number] documented as of this encounter Visit Diagnoses [...] specific identity) Health Care Power of Electric Freight Car Operator Care Teams Web Weaver Relationship Specialty Start Date End Date Kehinde Mc MD [address] [place] [address] PCP - General Internal Medicine 03/28/24 documented as of this encounter
--- OUTSIDE RECORDS SUMMARY | 2024-08-01 04:35 | External Medical Summary | Summary of Care ---
Author Name Unknown Organization [facility] Address [address] [place] [address] Phone [phone] Care Team Providers Care Gas Truck Driver Name Role Phone Kehinde Mc MD Primary Care Provider [phone] Reason for Visit * Reason Onset Date Comments Test Results 07/10/2024 Encounter Details Date Type Department Care Team (Late st Contact Info) Description 07/10/2024 Telephone [facility] [address] [place] [address] Kehinde Mc MD [address] [place] [address] Test Results Allergies Active Allergy [...] Tablet before bedtime. 04/19/2022 Active nystatin (NYSTOP) 784731 UNIT/GM powderIndications:Cut aneous candidiasis Apply topically to [...] MG Oral TabletIndications:Cor onary artery disease involving [place] coronary artery of [place] heart without angina pectoris Take by mouth [...] than 8.0% ([facility]) Use 3 times daily as directed 1 Kit 08/31/2023 Active True Metrix Blood Glucose Test In Vitro Strip (Glucose Blood)Indications:Typ e 2 diabetes mellitus with hemoglobin A1c goal of less than 8.0% ([facility]) Use 3 times daily as directed 300 Strip 3 08/31/2023 Active TRUEplus Lancets 33GIndications:Type 2 diabetes mellitus with hemoglobin A1c goal of less than 8.0% ([facility]) Use 3 times daily as [...] MG Oral TabletIndications:Cor onary artery disease involving [place] coronary artery of [place] heart without angina pectoris TAKE 1 TABLET [...] 30 Capsule 05/30/2024 Active FreeStyle Js 3 [place] DeviceIndications:Typ e 2 diabetes mellitus with hemoglobin A1c goal of less than 8.0% ([facility]) Use as directed. 1 Each 1 [...] Hour (toPROL XL)Indications:Harman ry artery disease involving [place] coronary artery of [place] heart without angina pectoris TAKE 1 & [...] hemorrhage 10/04/2020 Coronary artery disease invo lving [place] heart without angina pectoris 10/04/2020 COPD, group [...] mRNA, LNP-s, No Pre serve, 2-Dose Series (VSporto) 01/02/2021,12/05/2020 DTP Vaccine 07/19/2017,04/03/2014 Hepatitis B, 20+ [...] - 07/13/2024 9:35 AM EDT Sandrita from [employer] calling to inquiring about UA results from [...] Results: Sandrita Primary Care Provider : Kehinde cM MD Tests Results Requested : Urine culture Date of Test : 06/30/24 Location of Test: [facility] Ordering Provider: Jose Patient has been made aware that the [...] AM EDT Laboratory Lab Mobile Phlebotomy [facility] [address] [address] Mvmg, Gml Mobile Home Draw [address] [address] 07/19/2024 6:00 AM EDT [facility] Clinical Pharmacy Services, Ciera Griffin [address] [place] [address] [place] [address] [facility] [place] [address] Scheduled Orders Name Type Priority Associated Diagnoses Orde r Schedule CULTURE, URINE, QUANTITATIVE Lab Routine Dysuria Expected: 07/11/2024, Expires: 07/11/2025 URINALYSIS, REFLEX TO MICROSCOPIC Lab Routine Dysuria Expected: 07/11/2024, Expires: 07/11/2025 Health Maintenance Due Date Last Done Comments DISCUSS TOBACCO CESSATION (REFER TO SMARTSET #4059) 1970 HIV Screening 1985 Pneumococcal Vaccine: Pediatrics [...] this encounter Medical Devices Implanted Type Area Aemt Device Identifier Shelf Expiration Date Model / Serial / Lot Tube Flex 3.0x2.5 [id number] - [id number] Implanted:Qty: 1 on 12/07/2014 by Juancarlos Trinidad MD at [facility] Left: Finger [employer] : ORTHOPAEDICS 11/18/2015 [id number] / / [id number] documented as of this encounter Visit Diagnoses [...] (no specific identity) Health Care Power of Investigative Agent Care Teams Gas Truck Driver Relationship Specialty Start Date End Date Kehinde Mc MD [address] [facility] [place] [address] PCP - General Internal Medicine 03/28/24 documented as of this encounter
--- OUTSIDE RECORDS SUMMARY | 2024-08-01 04:35 | External Medical Summary | Summary of Care ---
Author Name Unknown Organization [facility] Address [address] [place] [address] Phone [phone] Care Team Providers Care Gin Inspector Name Role Phone Kehinde Mc MD Primary Care Provider [phone] Reason for Visit * Reason Onset Date Comments Order Request 07/11/2024 Encounter Details Date Type Department Care Team (Late st Contact Info) Description 07/11/2024 Telephone [facility] [address] [place] [address] Kehinde Mc MD [address] [place] [address] Order Request Allergies Active Allergy [...] Tablet before bedtime. 04/19/2022 Active nystatin (NYSTOP) 578252 UNIT/GM powderIndications:Cut aneous candidiasis Apply topically to [...] MG Oral TabletIndications:Cor onary artery disease involving [place] coronary artery of [place] heart without angina pectoris Take by mouth [...] MG Oral TabletIndications:Cor onary artery disease involving [place] coronary artery of [place] heart without angina pectoris TAKE 1 TABLET [...] 30 Capsule 05/30/2024 Active FreeStyle Js 3 [place] DeviceIndications:Typ e 2 diabetes mellitus with hemoglobin A1c goal of less than 8.0% ([facility]) Use as directed. 1 Each 1 [...] Hour (toPROL XL)Indications:Harman ry artery disease involving [place] coronary artery of [place] heart without angina pectoris TAKE 1 & [...] hemorrhage 10/04/2020 Coronary artery disease invo lving [place] heart without angina pectoris 10/04/2020 COPD, group [...] Calculus of kidney 08/20/2015 8 Overview: right, [place] CT Vitamin D deficiency 01/31/2015 018 Body [...] mRNA, LNP-s, No Pre serve, 2-Dose Series (LoraxAg) 01/02/2021,12/05/2020 DTP Vaccine 07/19/2017,04/03/2014 Hepatitis B, 20+ [...] drop off his urine sample Someone should machine pecan picker urine sample cup from clinic * [...] EDT Laboratory Lab Mobile Phlebotomy [facility] [address] [place] [address] [address] Mvmg, Gml Mobile Home Draw [address] [place] [address] [address] 07/19/2024 6:00 AM EDT Anticoagulation Centralized Clinical Pharmacy Services, Ciera Griffin [address] [place] [address] A[place] Richardson [address] [facility], [facility] [address] [place] [address] Scheduled Orders Name Type Priority Associated Diagnoses Orde r Schedule URINALYSIS, REFLEX TO CULTURE (NOT FOR NEUTROPENIC PATIENTS) Lab Routine Acute cystitis without hematuria Expected: 07/12/2024, Expires: 07/12/2025 Health Maintenance Due Date Last Done Comments DISCUSS TOBACCO CESSATION (REFER TO SMARTSET #7223) 1970 HIV Screening 1985 Pneumococcal Vaccine: Pediatrics [...] this encounter Medical Devices Implanted Type Area Distilling Department Supervisor Device Identifier Shelf Expiration Date Model / Serial / Lot Tube Flex 3.0x2.5 [id number] - [id number] Implanted:Qty: 1 on 12/07/2014 by Juancarlos Trinidad MD at [facility] Left: Finger [employer] : ORTHOPAEDICS 11/18/2015 [id number] / / [id number] documented as of this encounter Visit Diagnoses [...] (no specific identity) Health Care Power of Healthcare Business Analyst Care Teams Gin Inspector Relationship Specialty Start Date End Date Kehinde Mc MD [address] [place] [address] PCP - General Internal Medicine 03/28/24 documented as of this encounter
--- OUTSIDE RECORDS SUMMARY | 2024-08-01 04:36 | External Medical Summary | Summary of Care ---
Author Name Unknown Organization [facility] Address [address] [place] [address] Phone [phone] Care Team Providers Care Occupational Therapy Aide Name Role Phone Kehinde Mc MD Primary Care Provider [phone] Reason for Visit * Reason Onset Date Comments Order Request 07/11/2024 Encounter Details Date Type Department Care Team (Late st Contact Info) Description 07/11/2024 Telephone [facility] [address] [place] [address] Kehinde Mc MD [address] [place] [address] Order Request Allergies Active Allergy [...] as of this encounter (statuses as of 07/13/2024) Medications Medication Sig Dispensed Refills Start Date [...] Tablet before bedtime. 04/19/2022 Active nystatin (NYSTOP) 746215 UNIT/GM powderIndications:Cut aneous candidiasis Apply topically to [...] MG Oral TabletIndications:Cor onary artery disease involving hoh coronary artery of [...] goal of less than 8.0% ([facility]) Use 3 times daily as directed 1 Kit 08/31/2023 Active True Metrix Blood Glucose Test In Vitro Strip (Glucose Blood)Indications:Typ e 2 diabetes mellitus with hemoglobin A1c goal of less than 8.0% ([facility]) Use 3 times daily as directed 300 Strip 3 08/31/2023 Active TRUEplus Lancets 33GIndications:Type 2 diabetes mellitus with hemoglobin A1c goal of less than 8.0% ([facility]) Use 3 times daily as [...] MG Oral TabletIndications:Cor onary artery disease involving hoh coronary artery of hoh heart without angina pectoris TAKE 1 TABLET [...] 30 Capsule 05/30/2024 Active FreeStyle Js 3 [place] DeviceIndications:Typ e 2 diabetes mellitus with hemoglobin A1c goal of less than 8.0% ([facility]) Use as directed. 1 Each 1 05/30/2024 Active FreeStyle Sj 3 Sensor Use as directed every 14 [...] Hour (toPROL XL)Indications:Harman ry artery disease involving hoh coronary artery of [...] as of this encounter (statuses as of 07/13/2024) Active Problems Problem Noted Date Diagnosed Date [...] as of this encounter (statuses as of 07/13/2024) Resolved Problems Problem Noted Date Diagnosed Date [...] Calculus of kidney 08/20/2015 8 Overview: right, [place] CT Vitamin D deficiency 01/31/2015 018 Body [...] as of this encounter (statuses as of 07/13/2024) Immunizations Name Administration Dates Next Due COVID-19 mRNA, LNP-s, No Pre serve, 2-Dose Series ([place]) 01/02/2021,12/05/2020 DTP Vaccine 07/19/2017,04/03/2014 Hepatitis B, 20+ [...] AM EDT Laboratory Lab Mobile Phlebotomy [facility] [address] [facility] [place] [address] Mvmg, Gml Mobile Home Draw [email or web address] [place] [address] 07/19/2024 6:00 AM EDT Anticoagulation Centralized Clinical Pharmacy Services, [address] [place] [address] [place] [address] Scheduled Orders Name Type Priority Associated Diagnoses [...] this encounter Medical Devices Implanted Type Area Gill Box Operator Device Identifier Shelf Expiration Date Model / Serial / Lot Tube Flex 3.0x2.5 [id number] - [id number] Implanted:Qty: 1 on 12/07/2014 by Juancarlos Trinidad MD at [facility] Left: Finger [employer]ON : ORTHOPAEDICS 11/18/2015 [id number] / / [id number] documented as of this encounter Visit Diagnoses [...] (no specific identity) Health Care Power of Accounts Payable Analyst Care Teams Occupational Therapy Aide Relationship Specialty Start Date End Date Kehinde Mc MD [address] [place] [address] PCP - General Internal Medicine 03/28/24 documented as of this encounter
--- OUTSIDE RECORDS SUMMARY | 2024-08-01 04:36 | External Medical Summary | Summary of Care ---
Author Name Unknown Organization [facility] Address [address] [place] [address] Phone [phone] Care Team Providers Care Laborer High Density Press Name Role Phone Kehinde Mc MD Primary Care Provider [phone] Reason for Visit * Reason Onset Date Comments Forms Request 07/13/2024 Om[employer] Encounter Details Date Type Department Care Team ([facility] Contact Info) Description 07/13/2024 Telephone [facility] [address] [place] [address] Kehinde Mc MD [address] [place] [address] Forms Request (Omni) Allergies Active Allergy Reactions Criticality Noted Date [...] Tablet before bedtime. 04/19/2022 Active nystatin (NYSTOP) 781784 UNIT/GM powderIndications:Cut aneous candidiasis Apply topically to [...] OPD, group C, by GOLD 2017 classification ([facility]),COPD, group D, by GOLD 2017 classification ([facility]) USE 2 PUFFS BY MOUTH EVERY 4 HOURS NEEDED SHORT OF BREATH 6.7 g 5 11/24/2021 Active Magnesium Oxide 400 (241.3 Mg) MG Oral TabletIndications:Cor onary artery disease involving [place] coronary artery of [place] heart without angina pectoris Take by mouth [...] MG Oral TabletIndications:Cor onary artery disease involving [place] coronary artery of [place] heart without angina pectoris TAKE 1 TABLET [...] 30 Capsule 05/30/2024 Active FreeStyle Js 3 [place] DeviceIndications:Typ e 2 diabetes mellitus with hemoglobin A1c goal of less than 8.0% ([facility]) Use as directed. 1 Each [...] Hour (toPROL XL)Indications:Harman ry artery disease involving [place] coronary artery of [place] heart without angina pectoris TAKE 1 & [...] hemorrhage 10/04/2020 Coronary artery disease invo lving [place] heart without angina pectoris 10/04/2020 COPD, group [...] Calculus of kidney 08/20/2015 8 Overview: right, [place] CT Vitamin D deficiency 01/31/2015 018 Body [...] mRNA, LNP-s, No Pre serve, 2-Dose Series (oragenics) 01/02/2021,12/05/2020 DTP Vaccine 07/19/2017,04/03/2014 Hepatitis B, 20+ [...] Telephone Encounter - Gina Clifford LPN - 07/13/2024 5:21 PM EDT Received Fax for BFPROVIDERS: Dr. Kehinde Mc FORM received from [facility] care [facility] and FAXED documented in this encounter Plan of Treatment Upcoming Encounters Date Type Department Care Team (Late st Contact Info) Description 07/18/2024 7:00 AM EDT Laboratory Lab Mobile Phlebotomy [facility] [address] [place] [address] Mvmg, Gml Mobile Home Draw [address] [place] [address] 07/19/2024 6:00 AM EDT Anticoagulation Centralized Clinical Pharmacy Services, Ciera Griffin [address] [place] [address] [place] [address] [facility], [facility] [address] [place] [address] Health Maintenance Due Date Last Done Comments DISCUSS TOBACCO CESSATION (REFER TO SMARTSET #4726) 1970 HIV Screening 1985 Pneumococcal Vaccine: Pediatrics [...] this encounter Medical Devices Implanted Type Area Prosthetic Aides Teacher Device Identifier Shelf Expiration Date Model / Serial / Lot Tube Flex 3.0x2.5 [id number] - [id number] Implanted:Qty: 1 on 12/07/2014 by Juancarlos Trinidad MD at [facility] Left: Finger [employer]ON : ORTHOPAEDICS 11/18/2015 [id number] / / [id number] documented as of this encounter Advance Directives [...] (no specific identity) Health Care Power of Environmental Monitoring Technician Care Teams Laborer High Density Press Relationship Specialty Start Date End Date Kehinde Mc MD [address] [place] [address] PCP - General Internal Medicine 03/28/24 documented as of this encounter
--- OUTSIDE RECORDS SUMMARY | 2024-08-01 04:36 | External Medical Summary | Summary of Care ---
Author Name Unknown Organization [facility] Address [address] [place] [address] Phone [phone] Care Team Providers Care Chain Maker Machine Name Role Phone Kehinde Mc MD Primary Care Provider [phone] Reason for Visit * Reason Onset Date Comments Order Request 07/11/2024 Encounter Details Date Type Department Care Team (Late st Contact Info) Description 07/11/2024 Telephone [facility] [address] [place] [address] Kehinde Mc MD [address] [place] [address] Order Request Allergies Active Allergy [...] Tablet before bedtime. 04/19/2022 Active nystatin (NYSTOP) 537380 UNIT/GM powderIndications:Cut aneous candidiasis Apply topically to [...] MG Oral TabletIndications:Cor onary artery disease involving [place] coronary artery of [place] heart without angina pectoris Take by mouth [...] MG Oral TabletIndications:Cor onary artery disease involving [place] coronary artery of [place] heart without angina pectoris TAKE 1 TABLET [...] 30 Capsule 05/30/2024 Active FreeStyle Js 3 [place] DeviceIndications:Typ e 2 diabetes mellitus with hemoglobin A1c goal of less than 8.0% ([facility]) Use as directed. 1 Each 1 05/30/2024 [...] Hour (toPROL XL)Indications:Harman ry artery disease involving [place] coronary artery of [place] heart without angina pectoris TAKE 1 & [...] hemorrhage 10/04/2020 Coronary artery disease invo lving [place] heart without angina pectoris 10/04/2020 COPD, group [...] Calculus of kidney 08/20/2015 8 Overview: right, [place] CT Vitamin D deficiency 01/31/2015 018 Body [...] mRNA, LNP-s, No Pre serve, 2-Dose Series ([employer]) 01/02/2021,12/05/2020 DTP Vaccine 07/19/2017,04/03/2014 Hepatitis B, 20+ [...] drop off his urine sample Someone should knot picker cloth urine sample cup from clinic * Telephone [...] EDT Laboratory Lab Mobile Phlebotomy [facility] [address] [place] [address] Mvmg, Gml Mobile Home Draw [address] [place] [address] [address] 07/19/2024 6:00 AM EDT Anticoagulation Centralized Clinical Pharmacy Services, Ciera Griffin [address] [place] [address] [place] [address] [facility], [facility] [address] [place] [address] Scheduled Orders Name Type Priority Associated Diagnoses Orde r Schedule URINALYSIS, REFLEX TO CULTURE (NOT FOR NEUTROPENIC PATIENTS) Lab Routine Acute cystitis without hematuria Expected: 07/12/2024, Expires: 07/12/2025 Health Maintenance Due Date Last Done Comments DISCUSS TOBACCO CESSATION (REFER TO SMARTSET #9882) 1970 HIV Screening 1985 Pneumococcal Vaccine: Pediatrics [...] encounter Medical Devices Implanted Type Area Assistant Media Planner Device Identifier Shelf Expiration Date Model / Serial / Lot Tube Flex 3.0x2.5 [id number] - [id number] Implanted:Qty: 1 on 12/07/2014 by Juancarlos Trinidad MD at [facility] Left: Finger [employer] : ORTHOPAEDICS 11/18/2015 [id number] / / [id number] documented as of this encounter Visit Diagnoses [...] (no specific identity) Health Care Power of Executive Personal Assistant Care Teams Chain Maker Machine Relationship Specialty Start Date End Date Kehinde Mc MD [address] [place] [address] PCP - General Internal Medicine 03/28/24 documented as of this encounter
--- OUTSIDE RECORDS SUMMARY | 2024-08-01 04:36 | External Medical Summary | Summary of Care ---
Author Name Unknown Organization [facility] Address [address] [place] [address] Phone [phone] Care Team Providers Care Skin Installer Name Role Phone Kehinde Mc MD Primary Care Provider [phone] Reason for Visit * Reason Onset Date Comments Test Results 07/10/2024 Encounter Details Date Type Department Care Team (Late st Contact Info) Description 07/10/2024 Telephone [facility] [address] [place] [address] Kehinde Mc MD [address] [place] [address] Test Results Allergies Active Allergy [...] Tablet before bedtime. 04/19/2022 Active nystatin (NYSTOP) 887780 UNIT/GM powderIndications:Cut aneous candidiasis Apply topically to [...] MG Oral TabletIndications:Cor onary artery disease involving [place] coronary artery of [place] heart without angina pectoris Take by mouth [...] goal of less than 8.0% ([facility]) Use 3 times daily as directed 1 Kit 08/31/2023 Active True Metrix Blood Glucose Test In Vitro Strip (Glucose Blood)Indications:Typ e 2 diabetes mellitus with hemoglobin A1c goal of less than 8.0% ([facility]) Use 3 times daily as directed 300 Strip 3 08/31/2023 Active TRUEplus Lancets 33GIndications:Type 2 diabetes mellitus with hemoglobin A1c goal of less than 8.0% ([facility]) Use 3 times daily as directed 300 [...] MG Oral TabletIndications:Cor onary artery disease involving [place] coronary artery of [place] heart without angina pectoris TAKE 1 TABLET [...] 30 Capsule 05/30/2024 Active FreeStyle Js 3 [place] DeviceIndications:Typ e 2 diabetes mellitus with hemoglobin A1c goal of less than 8.0% ([facility]) Use as directed. 1 Each 1 05/30/2024 [...] Hour (toPROL XL)Indications:Harman ry artery disease involving [place] coronary artery of [place] heart without angina pectoris TAKE 1 & [...] 10/04/2020 Coronary artery disease invo lving [place] heart without angina pectoris 10/04/2020 COPD, group [...] Calculus of kidney 08/20/2015 8 Overview: right, [place] CT Vitamin D deficiency 01/31/2015 018 Body [...] mRNA, LNP-s, No Pre serve, 2-Dose Series ([email or web address]) 01/02/2021,12/05/2020 DTP Vaccine 07/19/2017,04/03/2014 Hepatitis B, 20+ [...] - 07/13/2024 9:35 AM EDT Sandrita from [facility] calling to inquiring about UA results from [...] of Test : 06/30/24 Location of Test: [facility] Ordering Provider: Jose Patient has been made [...] AM EDT Laboratory Lab Mobile Phlebotomy [facility] [address] [place] [address] Mvmg, Gml Mobile Home Draw [address] [place] [address] 07/19/2024 6:00 AM EDT [facility] Clinical Pharmacy Services, Ciera Griffin [address] [place] [address] [place] Richardson [address] [facility] [place] [address] Scheduled Orders Name Type Priority Associated Diagnoses Orde r Schedule CULTURE, URINE, QUANTITATIVE Lab Routine Dysuria Expected: 07/11/2024, Expires: 07/11/2025 URINALYSIS, REFLEX TO MICROSCOPIC Lab Routine Dysuria Expected: 07/11/2024, Expires: 07/11/2025 Health Maintenance Due Date Last Done Comments DISCUSS TOBACCO CESSATION (REFER TO SMARTSET #2684) 1970 HIV Screening 1985 Pneumococcal Vaccine: Pediatrics [...] this encounter Medical Devices Implanted Type Area Superintendent Quarry Device Identifier Shelf Expiration Date Model / Serial / Lot Tube Flex 3.0x2.5 [id number] - [id number] Implanted:Qty: 1 on 12/07/2014 by Juancarlos Trinidad MD at [facility] Left: Finger LANDON : ORTHOPAEDICS 11/18/2015 [id number] / / [id number] documented as of this encounter Visit Diagnoses [...] (no specific identity) Health Care Power of Member Of Congress Care Teams Skin Installer Relationship Specialty Start Date End Date Kehinde Mc MD [address] [facility] [place] [address] PCP - General Internal Medicine 03/28/24 documented as of this encounter
--- OUTSIDE RECORDS SUMMARY | 2024-08-01 04:36 | External Medical Summary | Summary of Care ---
Author Name Unknown Organization [facility] Address [address] [place] [address] Phone [phone] Care Team Providers Care Floor Cleaner Name Role Phone Kehinde Mc MD Primary Care Provider [phone] Reason for Visit * Reason Onset Date Comments Advice 07/13/2024 Encounter Details Date Type Department Care Team (Late st Contact Info) Description 07/13/2024 Telephone [facility] [address] [place] [address] Kehinde Mc MD [address] [place] [address] Advice Allergies Active Allergy Reactions [...] Tablet before bedtime. 04/19/2022 Active nystatin (NYSTOP) 102158 UNIT/GM powderIndications:Cut aneous candidiasis Apply topically to [...] (HCC),COPD, group D, by GOLD 2017 classification ([facility]) USE 2 PUFFS BY MOUTH EVERY 4 HOURS NEEDED SHORT OF BREATH 6.7 g 5 11/24/2021 Active Magnesium Oxide 400 (241.3 Mg) MG Oral TabletIndications:Cor onary artery disease involving [place] coronary artery of [place] heart without angina pectoris Take by [...] Oral TabletIndications:Cor onary artery disease involving [place] coronary artery of [place] heart without angina pectoris TAKE 1 TABLET [...] 30 Capsule 05/30/2024 Active FreeStyle Js 3 [place] DeviceIndications:Typ e 2 diabetes mellitus with hemoglobin A1c goal of less than 8.0% ([facility]) Use as directed. 1 Each 05/30/2024 Active [...] (toPROL XL)Indications:Harman ry artery disease involving [place] coronary artery of [place] heart without angina pectoris TAKE 1 [...] 10/04/2020 Coronary artery disease invo lving [place] heart without angina pectoris 10/04/2020 COPD, [...] Calculus of kidney 08/20/2015 8 Overview: right, [place] CT Vitamin D deficiency 01/31/2015 018 Body [...] mRNA, LNP-s, No Pre serve, 2-Dose Series ([employer]) 01/02/2021,12/05/2020 DTP Vaccine 07/19/2017,04/03/2014 Hepatitis B, 20+ [...] Encounter - Zohreh Rome LPN - 07/13/2024 9:31 AM EDT Addressed in another encounter. * Telephone Encounter - Kalee Campbell OSA - 07/13/2024 9:29 AM EDT Reason for patient's call: Home Health Call. Sandrita was looking to speak with a nurse. Caller was transferred to [facility] at the nurse line. documented in this encounter Plan of Treatment Upcoming Encounters Date Type Department Care Team (Late st Contact Info) Description 07/18/2024 7:00 AM EDT Laboratory Lab Mobile Phlebotomy [facility] [address] [place] [address] Mvmg, Gml Mobile Home Draw [address] [employer] [place] [address] 07/19/2024 6:00 AM EDT [facility] Clinical Pharmacy Services, Ciera Griffin [address] [place] [address] [place] [address] [facility], [address] [place] [address] Health Maintenance Due Date Last Done Comments DISCUSS TOBACCO CESSATION (REFER TO SMARTSET #0429) 1970 HIV Screening 1985 Pneumococcal Vaccine: Pediatrics [...] this encounter Medical Devices Implanted Type Area Heavy Machinery Assembler Device Identifier Shelf Expiration Date Model / Serial / Lot Tube Flex 3.0x2.5 [id number] - [id number] Implanted:Qty: 1 on 12/07/2014 by Juancarlos Trinidad MD at [facility] Left: Finger [employer]ON : ORTHOPAEDICS 11/18/2015 [id number] / / [id number] documented as of this encounter Advance Directives [...] (no specific identity) Health Care Power of Checker Product Design Care Teams Floor Cleaner Relationship Specialty Start Date End Date Kehinde Mc MD [address] [place] [address] PCP - General Internal Medicine 03/28/24 documented as of this encounter
--- OUTSIDE RECORDS SUMMARY | 2024-08-01 04:36 | External Medical Summary | Summary of Care ---
Author Name Unknown Organization [facility] Address [address] [place] [address] Phone [phone] Care Team Providers Care Yarn Man Name Role Phone Kehinde Mc MD Primary Care Provider [phone] Reason for Visit * Reason Onset Date Comments Forms Request 07/13/2024 [facility] Encounter Details Date Type Department Care Team ([facility] st Contact Info) Description 07/13/2024 Telephone [facility] [address] [place] [address] Kehinde Mc MD [address] [place] [address] Forms Request ([facility]) Allergies Active Allergy Reactions Criticality [...] Tablet before bedtime. 04/19/2022 Active nystatin (NYSTOP) 066162 UNIT/GM powderIndications:Cut aneous candidiasis Apply topically to [...] MG Oral TabletIndications:Cor onary artery disease involving [place] coronary artery of [place] heart without angina pectoris Take by mouth [...] MG Oral TabletIndications:Cor onary artery disease involving [place] coronary artery of [place] heart without angina pectoris TAKE 1 TABLET [...] 30 Capsule 05/30/2024 Active FreeStyle Js 3 [place] DeviceIndications:Typ e 2 diabetes mellitus with hemoglobin A1c goal of less than 8.0% ([facility]) Use as directed. 1 Each [...] Hour (toPROL XL)Indications:Harman ry artery disease involving [place] coronary artery of [place] heart without angina pectoris TAKE 1 & [...] hemorrhage 10/04/2020 Coronary artery disease invo lving [place] heart without angina pectoris 10/04/2020 COPD, group [...] Calculus of kidney 08/20/2015 8 Overview: right, [place] CT Vitamin D deficiency 01/31/2015 018 Body [...] mRNA, LNP-s, No Pre serve, 2-Dose Series (LFS ([employer])) 01/02/2021,12/05/2020 DTP Vaccine 07/19/2017,04/03/2014 Hepatitis B, 20+ [...] Encounter - Gina Clifford LPN - 07/13/2024 5:16 PM EDT Received Fax for BFPROVIDERS: Dr. Kehinde Mc PT PLAN OF CARE/EVALUATION received from [facility] care [facility] and FAXED documented in this encounter Plan of Treatment Upcoming Encounters Date Type Department Care Team (Late st Contact Info) Description 07/18/2024 7:00 AM EDT Laboratory Lab Mobile Phlebotomy [facility] [address] [place] [address] Mvmg, Gml Mobile Home Draw [address] [place] [address] 07/19/2024 6:00 AM EDT Anticoagulation Centralized Clinical Pharmacy Services, Ciera Griffin [address] [place] [address] [place] Richardson [address] [facility], [facility] [address] [place] [address] Health Maintenance Due Date Last Done Comments DISCUSS TOBACCO CESSATION (REFER TO SMARTSET #8703) 1970 HIV Screening 1985 Pneumococcal Vaccine: Pediatrics [...] this encounter Medical Devices Implanted Type Area Computer Teacher Device Identifier Shelf Expiration Date Model / Serial / Lot Tube Flex 3.0x2.5 [id number] - [id number] Implanted:Qty: 1 on 12/07/2014 by [place]arlos Trinidad [place] [facility] Left: Finger [employer]ON : ORTHOPAEDICS 11/18/2015 [id number] / / [id number] documented as of this encounter Advance Directives [...] (no specific identity) Health Care Power of Sample Washer Care Teams Yarn Man Relationship Specialty Start Date End Date Kehinde Mc MD [address] [place] [address] PCP - General Internal Medicine 03/28/24 documented as of this encounter
--- OUTSIDE RECORDS SUMMARY | 2024-08-01 04:37 | External Medical Summary | Summary of Care ---
Author Name Unknown Organization [facility] Address [address] [place] [address] Phone [phone] Care Team Providers Care Finisher [employer] Name Role Phone Kehinde Mc MD Primary Care Provider [phone] Reason for Visit * Reason Comments Dosage Adjustment Via Phone (anticoag Cl inic) Encounter Details Date Type Department Care Team ([facility] Contact Info) Description 07/12/2024 6:00 AM EDT Anticoagulation Centralized Clinical Pharmacy Services, Cieralavenr Griffin [address] [place] [address] [place] [address] [place] [address] History of pulmonary embolism* Allergies Active Allergy [...] as of this encounter (statuses as of 07/12/2024) Medications Medication Sig Dispensed Refills Start Date [...] Tablet before bedtime. 04/19/2022 Active nystatin (NYSTOP) 156632 UNIT/GM powderIndications:Cut aneous candidiasis Apply topically to [...] [place] heart without angina pectoris TAKE 1 TABLET BY MOUTH IN THE MORNING. 30 Tablet 5 04/28/2024 Active glipiZIDE 10 MG Oral Tablet (Glucotrol)Indication s:Diabetes mellitus with nephropathy ([facility]) TAKE ONE TABLET BY MOUTH 2 [...] 30 Capsule 05/30/2024 Active FreeStyle Js 3 [place] DeviceIndications:Typ e 2 diabetes mellitus with hemoglobin A1c goal of less than 8.0% ([facility]) Use as directed. 1 Each [...] as of this encounter (statuses as of 07/12/2024) Active Problems Problem Noted Date Diagnosed Date [...] hemorrhage 10/04/2020 Coronary artery disease invo lving [place] heart without angina pectoris 10/04/2020 COPD, [...] as of this encounter (statuses as of 07/12/2024) Resolved Problems Problem Noted Date Diagnosed Date [...] Calculus of kidney 08/20/2015 8 Overview: right, [place] CT Vitamin D deficiency 01/31/2015 018 Body [...] as of this encounter (statuses as of 07/12/2024) Immunizations Name Administration Dates Next Due COVID-19 mRNA, LNP-s, No Pre serve, 2-Dose Series ([place]) 01/02/2021,12/05/2020 DTP Vaccine 07/19/2017,04/03/2014 Hepatitis B, 20+ [...] of this encounter Progress Notes * Mala Walsh CPhT - 07/12/2024 8:32 AM EDT Contacts Contact Date/Time Type Contact Phone/Fax 07/12/2024 08:30 AM EDT Phone (Outgoing) Stanton Milner (Self) [phone] (H) Left Message Subjective Advised patient to contact Anticoagulation Clinic if any unusual bruising or bleeding, recent illness, changes in medication, or questions/concerns. PT/INR results, Coumadin dose instructions, and next PT/INR date communicated as noted by Pharmacist: Yes MALA WALSH CPhT 07/12/2024, 8:32 AM * Keren Sanchez RPh - 07/12/2024 8:09 AM EDT Images from the original note were not included. Coumadin Clinic (region specific) Objective Current Warfarin Dose As of 07/12/2024 Warfarin maintenance plan: 2.5 mg (5 mg x 0.5) every Tue, Micki; 5 mg (5 mg x 1) all other days INR Result As of 07/12/2024 INR goal: 2.0-3.0 INR used for dosin.6 (07/11/2024) Assessment & Plan Warfarin Plan As of 07/12/2024 Full warfarin instructions: 07/12: Hold; Otherwise 2.5 mg every Tue, Micki, Sat; 5 mg all other days Next INR check: 07/18/2024 Repeat PT/INR in 1 week(s) Weekly dose: decreased Additional Dosing Information: Description GML([facility]) - pt prefers Tu GML at this time Tech to contact patient with dose instructions as noted. Keren Sanchez RPh 07/12/2024, 8:09 AM documented in this encounter Plan of Treatment Upcoming Encounters Date Type Department Care Team (Late st Contact Info) Description 07/19/2024 6:00 AM EDT Anticoagulation Centralized Clinical Pharmacy Services, Ciera Griffin [address] [place] [address] [place] Richardson [address] [facility], [address] [place] [address] Health Maintenance Due Date Last Done Comments DISCUSS TOBACCO CESSATION (REFER TO SMARTSET #2981) 1970 HIV Screening 1985 Pneumococcal Vaccine: Pediatrics [...] this encounter Medical Devices Implanted Type Area Hospitality Housekeeper Device Identifier Shelf Expiration Date Model / Serial / Lot Tube Flex 3.0x2.5 [id number] - [id number] Implanted:Qty: 1 on 12/07/2014 by Juancarlos Trinidad MD at [facility] Left: Finger LANDON : ORTHOPAEDICS 11/18/2015 [id number] / / [id number] documented as of this encounter Visit Diagnoses [...] patient have Health Care Power of Attor kneia? No * Full Code Date Activated Date [...] (no specific identity) Health Care Power of Tool Design Draftsperson Care Teams Finisher [employer] Relationship Specialty Start Date End Date Kehinde Mc MD [address] [facility] [place] [address] PCP - General Internal Medicine 03/28/24 documented as of this encounter
--- OUTSIDE RECORDS SUMMARY | 2024-08-01 04:37 | External Medical Summary | Summary of Care ---
Author Name Unknown Organization [facility] Address [address] [place] [address] Phone [phone] Care Team Providers Care Manager Hi Name Role Phone Kehinde Mc MD Primary Care Provider [phone] Reason for Visit * Reason Onset Date Comments Test Results 07/10/2024 Encounter Details Date Type Department Care Team (Late st Contact Info) Description 07/10/2024 Telephone [facility] [address] [place] [address] Kehinde Mc MD [address] [place] [address] Test Results Allergies Active Allergy [...] as of this encounter (statuses as of 07/11/2024) Medications Medication Sig Dispensed Refills Start Date [...] Tablet before bedtime. 04/19/2022 Active nystatin (NYSTOP) 963656 UNIT/GM powderIndications:Cut aneous candidiasis Apply topically to [...] TabletIndications:Cor onary artery disease involving [place] coronary artery of [place] heart without angina pectoris Take by mouth [...] TabletIndications:Cor onary artery disease involving [place] coronary artery of [place] heart without angina pectoris TAKE 1 TABLET [...] 30 Capsule 05/30/2024 Active FreeStyle Js 3 [place] DeviceIndications:Typ e 2 diabetes mellitus with hemoglobin A1c goal of less than 8.0% ([facility]) Use as directed. 1 Each [...] XL)Indications:Harman ry artery disease involving [place] coronary artery of [place] heart without angina pectoris TAKE 1 & [...] as of this encounter (statuses as of 07/11/2024) Active Problems Problem Noted Date Diagnosed Date [...] Coronary artery disease invo lving [place] heart without angina pectoris 10/04/2020 COPD, group [...] as of this encounter (statuses as of 07/11/2024) Resolved Problems Problem Noted Date Diagnosed Date [...] Calculus of kidney 08/20/2015 8 Overview: right, [place] CT Vitamin D deficiency 01/31/2015 018 Body [...] as of this encounter (statuses as of 07/11/2024) Immunizations Name Administration Dates Next Due COVID-19 mRNA, LNP-s, No Pre serve, 2-Dose Series ([place]) 01/02/2021,12/05/2020 DTP Vaccine 07/19/2017,04/03/2014 Hepatitis B, 20+ [...] of Test : 06/30/24 Location of Test: [facility] Ordering Provider: Jose Patient has been made [...] Care Team (Late st Contact Info) Description 07/12/2024 6:00 AM EDT Anticoagulation Centralized Clinical Pharmacy Services, Ciera Griffin [address] [place] [address] [place] [address] [place] [address] Scheduled Orders Name Type Priority Associated Diagnoses Orde r Schedule CULTURE, URINE, QUANTITATIVE Lab Routine Dysuria Expected: 07/11/2024, Expires: 07/11/2025 URINALYSIS, REFLEX TO MICROSCOPIC Lab Routine Dysuria Expected: 07/11/2024, Expires: 07/11/2025 Health Maintenance Due Date Last Done Comments DISCUSS TOBACCO CESSATION (REFER TO SMARTSET #3107) 1970 HIV Screening 1985 Pneumococcal Vaccine: Pediatrics [...] encounter Medical Devices Implanted Type Area Junior Copywriter Device Identifier Shelf Expiration Date Model / Serial / Lot Tube Flex 3.0x2.5 [id number] - [id number] Implanted:Qty: 1 on 12/07/2014 by Juancarlos Trinidad MD at [facility] Left: Finger LANDON : ORTHOPAEDICS 11/18/2015 [id number] / / [id number] documented as of this encounter Visit Diagnoses [...] 3:57 PM 01/20/2020 8:45 PM This order r eflects the patients [...] Power of Cancer Genetic Counselor Care Teams Manager Hi Relationship Specialty Start Date End Date Kehinde Mc MD [address] [place] [address] PCP - General Internal Medicine 03/28/24 documented as of this encounter
--- OUTSIDE RECORDS SUMMARY | 2024-08-01 04:37 | External Medical Summary | Summary of Care ---
Author Name Unknown Organization [facility] Address [address] [place] [address] Phone [phone] Care Team Providers Care Surgical Instrument Repair Specialist Name Role Phone Kehinde Mc MD Primary Care Provider [phone] Reason for Visit * Reason Onset Date Comments Order Request 07/11/2024 [facility] Encounter Details Date Type Department Care Team ([facility] st Contact Info) Description 07/11/2024 Telephone [facility] [address] [place] [address] Kehinde Mc MD [address] [place] [address] Order Request ([facility]) [...] Tablet before bedtime. 04/19/2022 Active nystatin (NYSTOP) 275791 UNIT/GM powderIndications:Cut aneous candidiasis Apply topically to [...] MG Oral TabletIndications:Cor onary artery disease involving [place] coronary artery of [place] heart without angina pectoris Take by mouth [...] [facility]) Use 3 times daily as directed 1 Kit 08/31/2023 Active True Metrix Blood Glucose Test In Vitro Strip (Glucose Blood)Indications:Typ e 2 diabetes mellitus with hemoglobin A1c goal of less than 8.0% ([facility]) Use 3 times daily as directed 300 Strip 3 08/31/2023 Active TRUEplus Lancets 33GIndications:Type 2 diabetes mellitus with hemoglobin A1c goal of less than 8.0% ([facility]) Use 3 times daily as [...] MG Oral TabletIndications:Cor onary artery disease involving [place] coronary artery of [place] heart without angina pectoris TAKE 1 TABLET [...] 30 Capsule 05/30/2024 Active FreeStyle Js 3 [place] DeviceIndications:Typ e 2 diabetes mellitus with hemoglobin A1c goal of less than 8.0% ([facility]) Use as directed. 1 Each 05/30/2024 [...] Hour (toPROL XL)Indications:Harman ry artery disease involving [place] coronary artery of [place] heart without angina pectoris TAKE 1 & [...] hemorrhage 10/04/2020 Coronary artery disease invo lving [place] heart without angina pectoris 10/04/2020 COPD, group [...] Calculus of kidney 08/20/2015 8 Overview: right, [place] CT Vitamin D deficiency 01/31/2015 018 Body [...] mRNA, LNP-s, No Pre serve, 2-Dose Series ([employer]) 01/02/2021,12/05/2020 DTP Vaccine 07/19/2017,04/03/2014 Hepatitis B, 20+ [...] Telephone Encounter - Gina Clifford LPN - 07/11/2024 2:14 PM EDT Received Fax for BFPROVIDERS: Dr. Kehinde Mc ORDER received from [facility] and FAXED documented in this encounter Plan of Treatment Upcoming Encounters Date Type Department Care Team (Late st Contact Info) Description 07/12/2024 6:00 AM EDT Anticoagulation Centralized Clinical Pharmacy Services, Ciera Griffin [address] [place] [address] [place] Richardson [address] [phone] [place] [address] [place] [address] Health Maintenance Due Date Last Done Comments DISCUSS TOBACCO CESSATION (REFER TO SMARTSET #6271) 1970 HIV Screening 1985 Pneumococcal Vaccine: Pediatrics [...] this encounter Medical Devices Implanted Type Area Psychiatric Specialist Device Identifier Shelf Expiration Date Model / Serial / Lot Tube Flex 3.0x2.5 [id number] - [id number] Implanted:Qty: 1 on 12/07/2014 by Juancarlos Trinidad MD at [facility] Left: Finger [employer]ANDON : ORTHOPAEDICS 11/18/2015 [id number] / / [id number] documented as of this encounter Advance Directives [...] (no specific identity) Health Care Power of Clinical Trainer Care Teams Surgical Instrument Repair Specialist Relationship Specialty Start Date End Date Kehinde Mc MD [address] [place] [id number] PCP - General Internal Medicine 03/28/24 documented as of this encounter
--- OUTSIDE RECORDS SUMMARY | 2024-08-01 04:37 | External Medical Summary | Summary of Care ---
Author Name Unknown Organization [facility] Address [address] [place] [address] Phone [phone] Care Team Providers Care Cut Roll Machine Operator Name Role Phone Kehinde Mc MD Primary Care Provider [phone] Reason for Visit * Reason Onset Date Comments Order Request 07/11/2024 Encounter Details Date Type Department Care Team (Late st Contact Info) Description 07/11/2024 Telephone [facility] [address] [place] [address] Kehinde Mc MD [address] [place] [address] Order Request Allergies Active Allergy [...] Tablet before bedtime. 04/19/2022 Active nystatin (NYSTOP) 677329 UNIT/GM powderIndications:Cut aneous candidiasis Apply topically to [...] teller heart without angina pectoris TAKE 1 TABLET [...] 30 Capsule 05/30/2024 Active FreeStyle Js 3 [place] DeviceIndications:Typ e 2 diabetes mellitus with hemoglobin A1c goal of less than 8.0% ([facility]) Use as directed. 1 Each 1 [...] hemorrhage 10/04/2020 Coronary artery disease invo lving teller heart without angina pectoris 10/04/2020 COPD, [...] Calculus of kidney 08/20/2015 8 Overview: right, [place] CT Vitamin D deficiency 01/31/2015 018 Body [...] mRNA, LNP-s, No Pre serve, 2-Dose Series ([employer]) 01/02/2021,12/05/2020 DTP Vaccine 07/19/2017,04/03/2014 Hepatitis B, 20+ [...] encounter Miscellaneous Notes * Telephone Encounter - Shreya Penn DO - 07/12/2024 3:02 PM EDT Order placed * Telephone Encounter - Keren Carcamo MED CHEO - 07/12/2024 2:59 PM EDT Please advise, [...] EDT Laboratory Lab Mobile Phlebotomy [facility] [address] [facility] [place] [address] Mvmg, Gml Mobile Home Draw [address] [facility] [place] [address] 07/19/2024 6:00 AM EDT Anticoagulation Centralized Clinical Pharmacy Services, Ciera Griffin [address] [place] [address] [place] [address] [place] [address] Scheduled Orders Name Type Priority Associated Diagnoses Orde r Schedule URINALYSIS, REFLEX TO CULTURE (NOT FOR NEUTROPENIC PATIENTS) Lab Routine Acute cystitis without hematuria Expected: 07/12/2024, Expires: 07/12/2025 Health Maintenance Due Date Last Done Comments DISCUSS TOBACCO CESSATION (REFER TO SMARTSET #8321) 1970 HIV Screening 1985 Pneumococcal Vaccine: Pediatrics [...] encounter Medical Devices Implanted Type Area Telephone Operator Chief Device Identifier Shelf Expiration Date Model / Serial / Lot Tube Flex 3.0x2.5 [id number] - [id number] Implanted:Qty: 1 on 12/07/2014 by Juancarlos Trinidad MD at [facility] Left: Finger LANDON : ORTHOPAEDICS 11/18/2015 [id number] / / [id number] documented as of this encounter Visit Diagnoses [...] (no specific identity) Health Care Power of Dice Dealer Care Teams Cut Roll Machine Operator Relationship Specialty Start Date End Date Kehinde Mc MD [address] [place] [address] PCP - General Internal Medicine 03/28/24 documented as of this encounter
--- OUTSIDE RECORDS SUMMARY | 2024-08-01 04:38 | External Medical Summary ---
Author Name Unknown Address Unknown Organization [facility] [address] [place] [address] Laboratory Report Ordering Provider Test Date Status TULIO TRONCOSO 07/11/2024 08:16:00 Final Standing order for pt/inr. < br/>Please draw pt/inr every 1 to 4 weeks as requested
Results to [facility]

Warfarin Therapy
INR: 2.0-3.0 conventional anticoagulation
INR: 2.5-3.5 high intensity anticoagulation Observation Date Value Abnormality Reference (Units ) Status PT 07/11/2024 08:16:00 36.2 Above high normal 11 .6-15.2 (seconds) Final INR 07/11/2024 08:16:00 3.6 Above high normal 0. 8-1.2 Final Performing Location [facility] [address] [place] [address]
--- OUTSIDE RECORDS SUMMARY | 2024-08-01 04:38 | External Medical Summary | Summary of Care ---
Author Name Unknown Organization [facility] Address [address] [place] [address] Phone [phone] Care Team Providers Care Quill Machine Tender Name Role Phone Kehinde Mc MD Primary Care Provider [phone] Reason for Visit * Reason Onset Date Comments Forms Request 07/10/2024 [facility] Encounter Details Date Type Department Care Team ([facility] st Contact Info) Description 07/10/2024 Telephone [facility] [address] [place] [address] Kehinde Mc MD [address] [place] [address] Forms Request ([facility]) [...] as of this encounter (statuses as of 07/10/2024) Medications Medication Sig Dispensed Refills Start Date [...] Tablet before bedtime. 04/19/2022 Active nystatin (NYSTOP) 299945 UNIT/GM powderIndications:Cut aneous candidiasis Apply topically to [...] 30 Capsule 05/30/2024 Active FreeStyle Js 3 [place] DeviceIndications:Typ e 2 diabetes mellitus with hemoglobin A1c goal of less than 8.0% ([facility]) Use as directed. 1 Each 05/30/2024 [...] as of this encounter (statuses as of 07/10/2024) Active Problems Problem Noted Date Diagnosed Date [...] 01/24/2021 Opioid dependence, uncomplicated 01/22/2021 History of NM (myocardial infarction) 01/22/2021 Morbid obesity with BMI [...] as of this encounter (statuses as of 07/10/2024) Resolved Problems Problem Noted Date Diagnosed Date [...] Calculus of kidney 08/20/2015 8 Overview: right, [place] CT Vitamin D deficiency 01/31/2015 018 Body [...] as of this encounter (statuses as of 07/10/2024) Immunizations Name Administration Dates Next Due COVID-19 mRNA, LNP-s, No Pre serve, 2-Dose Series ([employer] [place]) 01/02/2021,12/05/2020 DTP Vaccine 07/19/2017,04/03/2014 Hepatitis B, 20+ [...] Telephone Encounter - Gina Clifford LPN - 07/10/2024 8:56 AM EDT Received Fax for BFPROVIDERS: Dr. Kehinde Mc ORDER received from [facility] and FAXED documented in this encounter Plan of Treatment Upcoming Encounters Date Type Department Care Team (Late st Contact Info) Description 07/11/2024 7:10 AM EDT Laboratory Lab Mobile Phlebotomy [facility] [address] [facility], [place] [address] Mvmg, Gml Mobile Home Draw [address] [place] [address] 07/12/2024 6:00 AM EDT Anticoagulation Centralized Clinical Pharmacy Services, Ciera Griffin [address] [place] [address] [place] [address] [facility], [facility] [address] [place] [address] Health Maintenance Due Date Last Done Comments DISCUSS TOBACCO CESSATION (REFER TO SMARTSET #7094) 1970 HIV Screening 1985 Pneumococcal Vaccine: Pediatrics [...] 07/26/2013 Colorectal Cancer Screening 12/09/2023 COVID-19 Vaccine (2023- season) 2024 01/02/2021, 12/05/2020 Influenza Vaccine (FLU [...] this encounter Medical Devices Implanted Type Area Funeral Pre Arrangement Counselor Device Identifier Shelf Expiration Date Model / Serial / Lot Tube Flex 3.0x2.5 [id number] - [id number] Implanted:Qty: 1 on 12/07/2014 by Juancarlos Trinidad MD at [facility] Left: Finger LANDON : ORTHOPAEDICS 11/18/2015 [id number] / / [id number] documented as of this encounter Advance Directives [...] Name Relationship Healthcare Agent Relationship Communication Estrella Dorinda Other - (no specific identity) Health Care Power of Heel Boom Operator Care Teams Quill Machine Tender Relationship Specialty Start Date End Date Kehinde Mc MD [address] [place] [address] PCP - General Internal Medicine 03/28/24 documented as of this encounter
--- OUTSIDE RECORDS SUMMARY | 2024-08-01 04:38 | External Medical Summary | Summary of Care ---
Author Name Unknown Organization [facility] Address [address] [place] [address] Phone [phone] Care Team Providers Care Steam Press Operator Name Role Phone Kehinde Mc MD Primary Care Provider [phone] Reason for Visit * Reason Comments Dosage Adjustment Via Phone (anticoag Cl inic) Encounter Details Date Type Department Care Team ([facility] Contact Info) Description 07/05/2024 6:00 AM EDT Anticoagulation Centralized Clinical Pharmacy Services, Cieralavern Griffin [address] [place] [address] [place] [address] [place] [address] History of pulmonary embolism* Allergies Active Allergy [...] as of this encounter (statuses as of 07/05/2024) Medications Medication Sig Dispensed Refills Start Date [...] Tablet before bedtime. 04/19/2022 Active nystatin (NYSTOP) 314404 UNIT/GM powderIndications:Cut aneous candidiasis Apply topically to [...] MG Oral TabletIndications:Cor onary artery disease involving alutiiq coronary artery of [...] less than 8.0% ([facility]) Use 3 times daily as directed 1 Kit 08/31/2023 Active True Metrix Blood Glucose Test In Vitro Strip (Glucose Blood)Indications:Typ e 2 diabetes mellitus with hemoglobin A1c goal of less than 8.0% ([facility]) Use 3 times daily as directed 300 Strip 3 08/31/2023 Active TRUEplus Lancets 33GIndications:Type 2 diabetes mellitus with hemoglobin A1c goal of less than 8.0% ([facility]) Use 3 times daily as [...] MG Oral TabletIndications:Cor onary artery disease involving alutiiq coronary artery of alutiiq heart without angina pectoris TAKE 1 TABLET BY MOUTH IN THE MORNING. 30 Tablet 5 04/28/2024 Active glipiZIDE 10 MG Oral Tablet (Glucotrol)Indication s:Diabetes mellitus with nephropathy ([facility]) TAKE ONE TABLET BY MOUTH [...] 30 Capsule 05/30/2024 Active FreeStyle Js 3 [place] DeviceIndications:Typ e 2 diabetes mellitus with hemoglobin A1c goal of less than 8.0% ([facility]) Use as directed. 1 Each [...] Hour (toPROL XL)Indications:Harman ry artery disease involving alutiiq coronary artery of [...] as of this encounter (statuses as of 07/05/2024) Active Problems Problem Noted Date Diagnosed Date [...] as of this encounter (statuses as of 07/05/2024) Resolved Problems Problem Noted Date Diagnosed Date [...] Calculus of kidney 08/20/2015 8 Overview: right, [place] CT Vitamin D deficiency 01/31/2015 018 Body [...] as of this encounter (statuses as of 07/05/2024) Immunizations Name Administration Dates Next Due COVID-19 mRNA, LNP-s, No Pre serve, 2-Dose Series ([employer]) 01/02/2021,12/05/2020 DTP Vaccine 07/19/2017,04/03/2014 Hepatitis B, [...] this encounter Progress Notes * Waleska Shipley, [facility] - 07/05/2024 8:28 AM EDT Contacts Contact Date/Time Type Contact Phone/Fax 07/05/2024 08:27 AM EDT Phone (Outgoing) Estrella Seth (Emergency Contact) [phone] (M) Spoke to Patient Subjective Patient Findings Negatives: [...] date communicated as noted by Pharmacist: Yes WALESKA SHIPLEY CPhT 07/05/2024, 8:28 AM * Keren Sanchez RPh - 07/05/2024 8:12 AM EDT Images from the original note were not included. Coumadin Clinic (region specific) Objective Current Warfarin Dose As of 07/05/2024 Warfarin maintenance plan: 2.5 mg (5 mg x 0.5) every Tue, Micki; 5 mg (5 mg x 1) all other days INR Result As of 07/05/2024 INR goal: 2.0-3.0 INR used for dosin.8 (07/04/2024) Assessment & Plan Warfarin Plan As of 07/05/2024 Full warfarin instructions: 07/05: Hold; Otherwise 2.5 mg every Tue, Micki; 5 mg all other days Next INR check: 07/11/2024 Repeat PT/INR in 1 week(s) Weekly dose: not changed Additional Dosing Information: Description GML([facility]) - pt prefers Tues GML at this time Tech to contact patient with dose instructions as noted. Keren Sanchez RPh 07/05/2024, 8:12 AM documented in this encounter Plan of Treatment Upcoming Encounters Date Type Department Care Team (Late st Contact Info) Description 07/12/2024 6:00 AM EDT Anticoagulation Centralized Clinical Pharmacy Services, Ciera Griffin [address] [place] [address] [place] [address] [facility], [address] [place] [address] Health Maintenance Due Date Last Done Comments DISCUSS TOBACCO CESSATION (REFER TO SMARTSET #8149) 1970 HIV Screening 1985 Pneumococcal Vaccine: Pediatrics [...] this encounter Medical Devices Implanted Type Area Information Writer Device Identifier Shelf Expiration Date Model / Serial / Lot Tube Flex 3.0x2.5 [id number] - [id number] Implanted:Qty: 1 on 12/07/2014 by Juancarlos Trinidad MD at [facility] Left: Finger LANDON : ORTHOPAEDICS 11/18/2015 [id number] / / [id number] documented as of this encounter Visit Diagnoses [...] (no specific identity) Health Care Power of Tnt Line Supervisor Care Teams Steam Press Operator Relationship Specialty Start Date End Date Kehinde Mc MD [address] [place] [address] PCP - General Internal Medicine 03/28/24 documented as of this encounter
--- OUTSIDE RECORDS SUMMARY | 2024-08-01 04:38 | External Medical Summary | Summary of Care ---
Author Name Unknown Organization [facility] Address [address] [place] [address] Phone [phone] Care Team Providers Care Electrical Panel Builder Name Role Phone Kehinde Mc MD Primary Care Provider [phone] Reason for Visit * Reason Onset Date Comments Forms Request 07/10/2024 [facility] Encounter Details Date Type Department Care Team ([facility] st Contact Info) Description 07/10/2024 Telephone [facility] [address] [place] [address] Kehinde Mc MD [address] [place] [address] Forms Request ([facility]) Allergies Active Allergy [...] Tablet before bedtime. 04/19/2022 Active nystatin (NYSTOP) 254774 UNIT/GM powderIndications:Cut aneous candidiasis Apply topically to [...] A1c goal of less than 8.0% ([facility]) Use 3 times daily as directed 1 Kit 08/31/2023 Active True Metrix Blood Glucose Test In Vitro Strip (Glucose Blood)Indications:Typ e 2 diabetes mellitus with hemoglobin A1c goal of less than 8.0% ([facility]) Use 3 times daily as directed 300 Strip 3 08/31/2023 Active TRUEplus Lancets 33GIndications:Type 2 diabetes mellitus with hemoglobin A1c goal of less than 8.0% ([facility]) Use 3 times daily as [...] 30 Capsule 05/30/2024 Active FreeStyle Js 3 [place] DeviceIndications:Typ e 2 diabetes mellitus with hemoglobin A1c goal of less than 8.0% ([facility]) Use as directed. 1 Each 05/30/2024 [...] Calculus of kidney 08/20/2015 8 Overview: right, [place] CT Vitamin D deficiency 01/31/2015 018 Body [...] mRNA, LNP-s, No Pre serve, 2-Dose Series ([employer]) 01/02/2021,12/05/2020 DTP Vaccine 07/19/2017,04/03/2014 Hepatitis B, 20+ [...] Encounter - Gina Clifford LPN - 07/10/2024 9:02 AM EDT Received Fax for BFPROVIDERS: Dr. Kehinde Mc ORDER received from [facility] and FAXED documented in this encounter Plan of Treatment Upcoming Encounters Date Type Department Care Team (Late st Contact Info) Description 07/11/2024 7:10 AM EDT Laboratory Lab Mobile Phlebotomy [facility] [address] [facility], [place] [address] Mvmg, Gml Mobile Home Draw [address] [place] [address] 07/12/2024 6:00 AM EDT Anticoagulation Centralized Clinical Pharmacy Services, Ciera Griffin [address] [place] [address] [place] [address] [facility], [facility] [address] [place] [address] Health Maintenance Due Date Last Done Comments DISCUSS TOBACCO CESSATION (REFER TO SMARTSET #7620) 1970 HIV Screening 1985 Pneumococcal Vaccine: Pediatrics [...] this encounter Medical Devices Implanted Type Area Hospice Home Health Aide Device Identifier Shelf Expiration Date Model / Serial / Lot Tube Flex 3.0x2.5 [id number] - [id number] Implanted:Qty: 1 on 12/07/2014 by Juancarlos Trinidad MD at [facility] Left: Finger LANDON : ORTHOPAEDICS 11/18/2015 [id number] / / [id number] documented as of this encounter Advance Directives [...] (no specific identity) Health Care Power of Interventional Neuroradiologist Care Teams Electrical Panel Builder Relationship Specialty Start Date End Date eKhinde Mc MD [address] [place] [address] PCP - General Internal Medicine 03/28/24 documented as of this encounter
--- OUTSIDE RECORDS SUMMARY | 2024-08-01 04:39 | External Medical Summary ---
Author Name Unknown Address Unknown Organization [facility] [address] [place] [address] Laboratory Report Ordering Provider Test Date Status TULIO TRONCOSO 07/04/2024 08:40:00 Final Standing order for pt/inr. < br/>Please draw pt/inr every 1 to 4 weeks as requested
Results to [facility] Anticoagulation Clinic

Warfarin Therapy
INR: 2.0-3.0 conventional anticoagulation
INR: 2.5-3.5 high intensity anticoagulation Observation Date Value Abnormality Reference (Units ) Status PT 07/04/2024 08:40:00 38.4 Above high normal 11 .6-15.2 (seconds) Final INR 07/04/2024 08:40:00 3.8 Above high normal 0. 8-1.2 Final Performing Location [facility] [address] [place] [address]
--- OUTSIDE RECORDS SUMMARY | 2024-08-01 04:39 | External Medical Summary | Summary of Care ---
Author Name Unknown Organization [facility] Address [address] [place] [address] Phone [phone] Care Team Providers Care Cardiovascular Or Nurse Name Role Phone Kehinde Mc MD Primary Care Provider [phone] Encounter Details Date Type Department Care Team (Late st Contact Info) Description 06/30/2024 Result Scan Unspecified Department <No scans attached> Allergies Active Allergy Reactions [...] as of this encounter (statuses as of 07/03/2024) Medications Medication Sig Dispensed Refills Start Date [...] Tablet before bedtime. 04/19/2022 Active nystatin (NYSTOP) 607142 UNIT/GM powderIndications:Cut aneous candidiasis Apply topically to affected area 3 times a day. 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 1 Each 05/30/2024 Active [...] EVERY DAY IN THE MORNING 30 Tablet 06/26/2024 Active Pantoprazole Sodium 40 MG Oral Tablet Delayed Release (Protonix) Take 1 Tablet by mouth in the morning. 30 Tablet 06/26/2024 Active documented as of this encounter (statuses as of 07/03/2024) Active Problems Problem Noted Date Diagnosed Date [...] as of this encounter (statuses as of 07/03/2024) Resolved Problems Problem Noted Date Diagnosed Date [...] Calculus of kidney 08/20/2015 8 Overview: right, [place] CT Vitamin D deficiency 01/31/2015 018 Body [...] as of this encounter (statuses as of 07/03/2024) Immunizations Name Administration Dates Next Due COVID-19 mRNA, LNP-s, No Pre serve, 2-Dose Series ([employer]) 01/02/2021,12/05/2020 DTP Vaccine 07/19/2017,04/03/2014 Hepatitis B, 20+ [...] Care Team (Late st Contact Info) Description 07/04/2024 7:20 AM EDT Laboratory Lab Mobile Phlebotomy [facility] [address] [place] [address] Mvmg, Gml Mobile Home Draw [address] [facility] [place] [address] 07/05/2024 6:00 AM EDT Anticoagulation Centralized Clinical Pharmacy Services, Ciera Griffin [address] [place] [address] [place] [address] [place] [address] Health Maintenance Due Date Last Done Comments DISCUSS TOBACCO CESSATION (REFER TO SMARTSET #9208) 1970 HIV Screening 1985 Pneumococcal Vaccine: Pediatrics [...] this encounter Medical Devices Implanted Type Area Chip Frier Device Identifier Shelf Expiration Date Model / Serial / Lot Tube Flex 3.0x2.5 [id number] - [id number] Implanted:Qty: 1 on 12/07/2014 by Juancarlos Trinidad MD at [facility] Left: Finger LANDON : ORTHOPAEDICS 11/18/2015 [id number] / / [id number] documented as of this encounter Procedures Procedure Name Priority Date/Time Associated Diagnosis Comments OUTSIDE LAB RESULTS 06/30/2024 documented in this encounter Results * OUTSIDE LAB RESULTS (06/30/2024) 06/30/2024 No Physician Data Unknown LABORATORY documented in this encounter Advance Directives * [...] (no specific identity) Health Care Power of Mainspring Former Arbor End Care Teams Cardiovascular Or Nurse Relationship Specialty Start Date End Date Kehinde Mc MD [address] [place] [address] PCP - General Internal Medicine 03/28/24 documented as of this encounter
--- OUTSIDE RECORDS SUMMARY | 2024-08-01 04:39 | External Medical Summary | Summary of Care ---
Author Name Unknown Organization [facility] Address [address] [place] [address] Phone [phone] Care Team Providers Care Admitting Representative Name Role Phone Kehinde Mc MD Primary Care Provider [phone] Encounter Details Date Type Department Care Team (Late st Contact Info) Description 06/30/2024 Result Scan Unspecified Department Kehinde Mc MD [address] [place] [address] <No scans attached> Allergies Active Allergy Reactions [...] Tablet before bedtime. 04/19/2022 Active nystatin (NYSTOP) 695636 UNIT/GM powderIndications:Cut aneous candidiasis Apply topically to affected area 3 times a day. 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 ([facility]) Place 1 Tab under the [...] MG Oral TabletIndications:Cor onary artery disease involving tunica-biloxi coronary artery of tunica-biloxi heart without angina pectoris Take by mouth [...] MG Oral TabletIndications:Cor onary artery disease involving tunica-biloxi coronary artery of tunica-biloxi heart without angina pectoris TAKE 1 TABLET [...] 30 Capsule 05/30/2024 Active FreeStyle Js 3 [place] DeviceIndications:Typ e 2 diabetes mellitus with hemoglobin [...] Hour (toPROL XL)Indications:Harman ry artery disease involving tunica-biloxi coronary artery of tunica-biloxi heart without angina pectoris TAKE 1 & [...] hemorrhage 10/04/2020 Coronary artery disease invo lving tunica-biloxi heart without angina pectoris 10/04/2020 COPD, group [...] of kidney 08/20/2015 8 Overview: right, [place] CT Vitamin D deficiency 01/31/2015 018 Body [...] mRNA, LNP-s, No Pre serve, 2-Dose Series ([employer]) 01/02/2021,12/05/2020 DTP Vaccine 07/19/2017,04/03/2014 Hepatitis B, 20+ [...] Mobile Phlebotomy [facility] [address] [place] [address] [address] Mvmg, Gml Mobile Home Draw [address] [place] [address] [address] 07/05/2024 6:00 AM EDT Anticoagulation Centralized Clinical Pharmacy Services, Ciera Griffin [address] [place] [address] [place] [address] [facility] [place] [address] Health Maintenance Due Date Last Done Comments DISCUSS TOBACCO CESSATION (REFER TO SMARTSET #9416) 1970 HIV Screening 1985 Pneumococcal Vaccine: Pediatrics [...] this encounter Medical Devices Implanted Type Area Fondant Machine Operator Device Identifier Shelf Expiration Date Model / Serial / Lot Tube Flex 3.0x2.5 [id number] - [id number] Implanted:Qty: 1 on 12/07/2014 by Juancarlos Trinidad MD at [facility] Left: Finger LANDON : ORTHOPAEDICS 11/18/2015 [id number] / / [id number] documented as of this encounter Procedures Procedure Name Priority Date/Time Associated Diagnosis Comments OUTSIDE LAB RESULTS 06/30/2024 documented in this encounter Results * OUTSIDE LAB RESULTS (06/30/2024) 06/30/2024 Kehinde Mc MD LABORATORY documented in this encounter Advance Directives [...] (no specific identity) Health Care Power of Roll Builder Care Teams Admitting Representative Relationship Specialty Start Date End Date Kehinde Mc MD [address] [place] [address] PCP - General Internal Medicine 03/28/24 documented as of this encounter
[2024-08-01] MEDS: MEROPENEM 500 MG in SYRINGE 0 ML IV SCH (06:04)
[2024-08-01] MEDS: PANTOprazole 40 MG TAB PO SCH (06:04)
[2024-08-01] MEDS: ALBUT/IPRATROP 3MG/0.5MG NEB 3 ML VIAL INH SCH (07:21)
[2024-08-01] MEDS: BUDESONIDE 0.5 MG/2 ML VIAL (PULMICORT) INH SCH (07:21)
[2024-08-01] MEDS: CYCLOBENZAPRINE HCL 10 MG TAB PO PRN (07:44)
[2024-08-01 07:53] LABS: Basophils # (auto) 0.07 K/uL (0.00-0.20); Basophils % (auto) 0.5 %; Eosinophils # (auto) 0.29 K/uL (0.00-0.50); Eosinophils % (auto) 2.2 %; Hematocrit (blood only) 40.2 % (42.0-52.0); Hemoglobin 12.8 g/dl (14.0-18.0); Immature Granulocytes # (auto) 0.09 K/uL (0.01-0.20); Immature Granulocytes % (auto) 0.7 %; Lymphocytes # (auto) 3.71 K/uL (1.20-3.40); Lymphocytes % (auto) 27.5 %; Mean Corpuscular Hemoglobin 24.3 pg (25.0-34.0); Mean Corpuscular Hgb Conc 31.8 g/dL (32.0-36.0); Mean Corpuscular Volume 76.4 fL (80.0-100.0); Mean Platelet Volume 10.4 fL (9.4-12.4); Monocytes # (auto) 0.87 K/uL (0.11-0.59); Monocytes % (auto) 6.5 %; Neutrophils # (auto) 8.45 K/uL (1.40-6.50); Neutrophils % (auto) 62.6 %; Platelet Count 239 K/uL (130-400); RDW Coefficient of Variation 18.9 % (11.5-14.5); RDW Standard Deviation 50.4 fL (36.4-46.3); Red Blood Count 5.26 M/uL (4.70-6.10); White Blood Count 13.48 K/ul (4.8-10.8)
[2024-08-01 08:10] LABS: Calcium 9.3 mg/dl (8.6-10.3); Creatinine Clr Calc Pharmacy 151.3 ml/min; Magnesium 1.8 mg/dl (1.7-2.4)
[2024-08-01 08:16] LABS: INR 1.5 (0.9-1.1)
[2024-08-01] MEDS: FLUTICASONE PROPIONATE NA SPR 16 GM BTL SCH (08:59)
[2024-08-01] MEDS: FLUTICASONE/VILANTEROL 100/25MCG 14 PUFFS/INHALER INH SCH (08:59)
[2024-08-01] MEDS: FERROUS SULFATE 325 MG TAB PO SCH (09:00)
[2024-08-01] MEDS ORDERED: PANTOprazole 40 MG TAB PO SCH (09:00)
[2024-08-01] MEDS: DULoxetine HCL 60 MG CAP PO SCH (09:00)
[2024-08-01] MEDS: TAMSULOSIN HCL 0.4 MG CAP PO SCH (09:00)
[2024-08-01] MEDS ORDERED: NON-FORMULARY MEDICATION (Lactobacillus Acidophilus Tablet,Chewable) PO SCH (09:00)
[2024-08-01] MEDS: FINASTERIDE 5 MG TAB PO SCH (09:00)
[2024-08-01] MEDS: FOLIC ACID 1 MG TAB PO SCH (09:00)
[2024-08-01] MEDS: ASPIRIN 81 MG ECTAB PO SCH (09:00)
[2024-08-01] MEDS: LANTUS PER UNIT CHARGE SQ SCH (09:03)
[2024-08-01] MEDS ORDERED: NICOTINE POLACRILEX 2 MG GUM MT PRN (11:25)
[2024-08-01] MEDS: ACETAMINOPHEN 1,000 MG/100 ML VIAL IV PRN (11:41)
[2024-08-01] MEDS: PROMETHAZINE 12.5 MG/50.5 ML BAG IV PRN (12:46)
[2024-08-01] MEDS: NICOTINE 21 MG/24 HR TDSY TD SCH (12:46)
--- NOTE | 2024-08-01 13:32 | Hospitalist Progress Note ---
Date of Service August 01, 2024 Assessment & Plan (1) Complicated UTI (urinary tract infection): Plan: Complicated UTI (urinary tract infection): hx recurrent UTIs secondary to BPH w chronic indwelling Lloyd catheter Failed outpatient treatment Patient was recently treated with oral antibiotic as outpatient for UTI. Presented to the hospital due to lower abdominal discomfort and chills. Urinalysis shows pyuria, no urine bacteria seen. WBC count elevated Patient currently started on meropenem; follow-up on urine culture results Patient reports history of urethral stricture; reports that he feels some difficulty with Lloyd catheter; requested urology evaluation. Continue PT OT Chronic conditions: chronic diastolic heart failure (EF 55%, TTE 2023)- patient on the dry side given hemoconcentration- Home diuretics currently on hold; history CAD/STEMI as per records history subdural hematoma/subarachnoid hemorrhage as per records hypertension, BP on the lower side- hold imdur, lasix for now hyperlipidemia, on statin Rx COPD, baseline pulmonary symptoms - continue inhalers recurrent PE on Coumadin, INR slightly subtherapeutic - continue coumadin DM 2 on oral medications, well-controlled as of recent hemoglobin A1c of 6.23 June 2024 chronic anemia, hemoglobin better than baseline likely secondary to hemoconcentration chronic pain on buprenorphine- continue Hypokalemia secondary to diuretic/glipizide Rx ongoing tobacco abuse. DVT prophylaxis. Coumadin INR goal between 2 and 3 Full code Time spent evaluating patient, direct bedside care, chart review, placing orders, interpretation of diagnostic studies, discussion with consultants, patient, and family members, as well as other required patient management activities is 50 minutes Please note the above document was generated using voice recognition software. It may contain grammatical, syntax or spelling errors. Any formal questions or concerns about the content, text or information contained within the body of this dictation should be directly addressed to the provider for clarification Admission and Anticipated Discharge Date Admission Date: July 31, 2024 Subjective Patient seen and examined at bedside. He is sitting up at the side of the bed; not in distress He worked with physical therapy and is able to walk in the hallways Review of Systems Review of Systems: All systems reviewed & are unremarkable except as noted in Subjective Physical Exam Physical Exam: GENERAL: Awake, alert oriented x 3; not in distress. Bilateral vesicular breath sound HEART : RRR, no obvious murmurs ABDOMEN: distention, no tenderness EXTREMITIES : Bilateral LE swelling, no LE tenderness, no conspicuous deformities noted. venous discoloration +nt NEUROLOGIC : Coherent, no facial asymmetry, gait and stance not assessed Results & Data Results & Data Vital Signs (Past 12 Hours) Vital Signs Temp Pulse Resp BP Pulse Ox O2 Del Method O2 Flow Rate 08/01/24 07:50 Room Air, Nasal Cannula 08/01/24 07:21 63 18 100 Nasal Cannula 4 08/01/24 07:04 36.7 C 71 18 115/72 100 Nasal Cannula 4
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
[2024-08-01] MEDS: ONDANSETRON INJ 2 MG/ML 2 ML VIAL IV STA (18:07)
--- NOTE | 2024-08-01 19:47 | Communication Note ---
Date of Service: August 01, 2024 Made aware of INR of less than 1.5 this a.m. AP Subtherapeutic INR History PE on anticoagulation IV heparin Coumadin bridge Rx INR goal between 2 and 3
[2024-08-01 21:31] LABS: Partial Thromboplastin Ratio 1.2; Partial Thromboplastin Time 33 Seconds (21-31)
[2024-08-01] MEDS: FAMOTIDINE 20 MG TAB PO SCH (21:46)
[2024-08-01] MEDS: HEPARIN SODIUM/DEXTROSE 25,000 UNITS/500 ML BAG IV SCH (22:46)
[2024-08-01] MEDS: Heparin IV Adult Wt-Based Low-Dose *NO* INITIAL Bolus Protocol IV SCH (22:50)
[2024-08-02 05:56] LABS: Calcium 9.9 mg/dl (8.6-10.3); Creatinine Clr Calc Pharmacy 139.2 ml/min; Potassium 4.3 mmol/L (3.5-5.1)
[2024-08-02 06:05] LABS: ANTI-Xa, UFH(UnfractionatedHep < 0.10 IU/ml (0.3-0.7)
[2024-08-02] MEDS: HEPARIN SOD (PORCINE) 1000 UNIT/ML IV ONE (08:16)
[2024-08-02 10:26] LABS: INR 1.4 (0.9-1.1); Prothrombin Time 14.9 Seconds (9.0-12.0)
[2024-08-02] MEDS: DOCUSATE SODIUM 100 MG CAP PO SCH (11:42)
[2024-08-02] MEDS: POLYETHYLENE (MIRALAX) 17 GM PACK PO PRN (11:42)
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
[2024-08-02 13:40] LABS: ANTI-Xa, UFH(UnfractionatedHep 0.14 IU/ml (0.3-0.7)
[2024-08-02] MEDS: WARFARIN SOD 7.5 MG TAB PO SCH (15:17)
[2024-08-02] MEDS: HEPARIN SOD (PORCINE) 1000 UNIT/ML IV STA (15:54)
--- NOTE | 2024-08-02 15:54 | Hospitalist Progress Note ---
Date of Service August 02, 2024 Assessment & Plan (1) Complicated UTI (urinary tract infection): Plan: Complicated UTI (urinary tract infection): Lloyd catheter associated UTI, POA H/O Recurrent UTIs secondary to BPH/chronic indwelling Lloyd catheter Malpositioned Lloyd catheter--POA Failed outpatient treatment with Macrobid --Urine culture grew providencia -Lolyd catheter changed -Appreciate ID, urology input --IV meropenem changed to Bactrim Patient will eventually need cystoscopy and possible reconstructive urology for ongoing urinary incontinence Constipation Started on bowel regimen Monitor Subtherapeutic INR Continue IV heparin until INR is therapeutic Adjust Coumadin dose as needed INR 1.4 today Chronic conditions: Chronic diastolic heart failure (EF 55%, TTE 2023)- patient on the dry side given hemoconcentration- Home diuretics currently on hold; H/O CAD/STEMI as per records H/O Subdural hematoma/subarachnoid hemorrhage as per records Hypertension, BP on the lower side- Resume imdur, lasix as able Hyperlipidemia, on statin COPD--no signs of exacerbation, continue home inhalers 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 Monitor and replete electrolytes as needed Ongoing tobacco abuse. 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 DVT Px: IV heparin, Coumadin CODE STATUS Full code Admission and Anticipated Discharge Date Admission Date: July 31, 2024 Subjective Patient is seen and examined at bedside States having nausea associated with constipation today No other complaints today Denies any chest pain, dyspnea Review of Systems Review of Systems: All systems reviewed & are unremarkable except as noted in Subjective Physical Exam Physical Exam: Physical Exam: Vitals signs as noted above General Appearance:Obese, no apparent distress Head: normocephalic, Atraumatic Eyes: normal inspection, EOMI Neck: supple, Trachea midline Respiratory/Chest: Decreased breath sounds, CTA, No accessory muscle use Cardiovascular: S1, S2, No murmur Abdomen/GI:Soft, Non tender, Bowel sounds present Extremities/Musculoskeletal:normal inspection, Trace edema, chronic venous stasis changes Neurologic/Psych:AAOX3, grossly no focal neurological deficits Skin: normal color, warm Results & Data Results & Data Vital Signs (Past 12 Hours) Vital Signs Temp Pulse Pulse Resp BP Pulse Ox O2 Del Method 08/02/24 14:48 36.7 C 69 16 110/70 95 Room Air 08/02/24 07:45 36.8 C 59 L 16 121/78 95 Room Air 08/02/24 07:08 61 18 96 Room Air Laboratory Results [facility] 08/02/24 05:21 Sodium 137 Potassium 4.3 Chloride 103 Carbon Dioxide 33 H BUN 13 Creatinine 1.00 Glucose 182 H Calcium 9.9
[2024-08-02] MEDS ORDERED: WARFARIN SOD 5 MG TAB PO SCH (16:00)
[2024-08-02] MEDS: SULFAMETHOXAZOLE/TRIMETHOPRIM DS 800/160MG TAB PO SCH (17:04)
[2024-08-02 21:56] LABS: ANTI-Xa, UFH(UnfractionatedHep 0.23 IU/ml (0.3-0.7)
[2024-08-03 04:53] LABS: Basophils # (auto) 0.09 K/uL (0.00-0.20); Basophils % (auto) 0.7 %; Eosinophils # (auto) 0.27 K/uL (0.00-0.50); Eosinophils % (auto) 2.2 %; Hematocrit (blood only) 40.5 % (42.0-52.0); Hemoglobin 12.7 g/dl (14.0-18.0); Immature Granulocytes # (auto) 0.09 K/uL (0.01-0.20); Immature Granulocytes % (auto) 0.7 %; Lymphocytes # (auto) 3.92 K/uL (1.20-3.40); Lymphocytes % (auto) 31.9 %; Mean Corpuscular Hemoglobin 24.4 pg (25.0-34.0); Mean Corpuscular Hgb Conc 31.4 g/dL (32.0-36.0); Mean Corpuscular Volume 77.7 fL (80.0-100.0); Mean Platelet Volume 10.8 fL (9.4-12.4); Monocytes # (auto) 0.75 K/uL (0.11-0.59); Monocytes % (auto) 6.1 %; Neutrophils # (auto) 7.17 K/uL (1.40-6.50); Neutrophils % (auto) 58.4 %; Platelet Count 236 K/uL (130-400); RDW Coefficient of Variation 18.3 % (11.5-14.5); RDW Standard Deviation 50.8 fL (36.4-46.3); Red Blood Count 5.21 M/uL (4.70-6.10); White Blood Count 12.29 K/ul (4.8-10.8)
[2024-08-03 05:09] LABS: BUN Creatinine Ratio 20.9 (10-20); Calcium 9.8 mg/dl (8.6-10.3); Creatinine Clr Calc Pharmacy 161.9 ml/min; Potassium 4.4 mmol/L (3.5-5.1)
[2024-08-03 05:21] LABS: ANTI-Xa, UFH(UnfractionatedHep 0.19 IU/ml (0.3-0.7); INR 1.6 (0.9-1.1); Prothrombin Time 16.5 Seconds (9.0-12.0)
[2024-08-03] MEDS: HEPARIN SOD (PORCINE) 1000 UNIT/ML IV ONE (07:13)
[2024-08-03 13:47] LABS: ANTI-Xa, UFH(UnfractionatedHep 0.36 IU/ml (0.3-0.7)
--- NOTE | 2024-08-03 15:12 | Electrocardiogram Report ---
Test Reason : Blood Pressure : */* mmHG Vent. Rate : 73 BPM Atrial Rate : 73 BPM P-R Int : 150 ms QRS Dur : 108 ms QT Int : 390 ms P-R-T Axes : 20 27 54 degrees QTcB Int : 429 ms Normal sinus rhythm Incomplete right bundle branch block Diffuse Minor Nonspecific ST abnormality Abnormal ECG When compared with ECG of 14-Mar-2024 10:56, Nonspecific T wave abnormality no longer evident in Anterior leads Confirmed by Da Browning ([id number]) on 08/03/2024 3:12:26 PM Referred By: Confirmed By: Da Browning
--- NOTE | 2024-08-03 15:54 | Hospitalist Progress Note ---
Date of Service August 03, 2024 Assessment & Plan (1) Complicated UTI (urinary tract infection): Plan: Complicated UTI (urinary tract infection): Lloyd catheter associated UTI, POA H/O Recurrent UTIs secondary to BPH/chronic indwelling Lloyd catheter Malpositioned Lloyd catheter--POA Failed outpatient treatment with Macrobid --Urine culture grew providencia -Lloyd catheter changed -Appreciate ID, urology input --IV meropenem changed to Bactrim Patient will eventually need cystoscopy and possible reconstructive urology for ongoing urinary incontinence likely as outpatient Needs follow-up with urology on discharge Continue Bactrim for UTI Constipation Continue Colace, MiraLAX Added senna Monitor Subtherapeutic INR Continue IV heparin until INR is therapeutic Adjust Coumadin dose as needed INR 1.6 today Chronic conditions: Chronic diastolic heart failure (EF 55%, TTE 2023)- patient on the dry side given hemoconcentration- Home diuretics currently on hold; H/O CAD/STEMI as per records H/O Subdural hematoma/subarachnoid hemorrhage as per records Hypertension, BP on the lower side- Resume imdur lasix as able Hyperlipidemia, on statin COPD--no signs of exacerbation, continue home inhalers 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 Monitor and replete electrolytes as needed Ongoing tobacco abuse. 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 DVT Px: IV heparin, Coumadin CODE STATUS Full code Admission and Anticipated Discharge Date Admission Date: July 31, 2024 Subjective Patient is seen and examined at bedside States feeling tired today No bowel movement yet Denies any chest pain, dyspnea, nausea, vomiting, abdominal pain Discussed with urology today Review of Systems Review of Systems: All systems reviewed & are unremarkable except as noted in Subjective Physical Exam Physical Exam: Physical Exam: Vitals signs as noted above General Appearance:Obese, no apparent distress Head: normocephalic, Atraumatic Eyes: normal inspection, EOMI Neck: supple, Trachea midline Respiratory/Chest: Decreased breath sounds, CTA, No accessory muscle use Cardiovascular: S1, S2, No murmur Abdomen/GI:Soft, Non tender, Bowel sounds present Extremities/Musculoskeletal:normal inspection, Trace edema, chronic venous stasis changes Neurologic/Psych:AAOX3, grossly no focal neurological deficits Skin: normal color, warm Results & Data Results & Data Vital Signs (Past 12 Hours) Vital Signs Temp Pulse Pulse Resp BP BP Pulse Ox 08/03/24 13:38 36.7 C 62 16 129/72 97 08/03/24 11:02 08/03/24 07:59 36.6 C 65 16 134/73 97 08/03/24 07:05 66 18 93 O2 Del Method O2 Flow Rate 08/03/24 13:38 Room Air 08/03/24 11:02 Nasal Cannula 4 08/03/24 07:59 Room Air 08/03/24 07:05 Room Air Laboratory Results Short CBC 08/03/24 Range/Units 04:32 WBC 12.29 H (4.8-10.8) K/ul Hgb 12.7 L (14.0-18.0) g/dl Hct 40.5 L (42.0-52.0) % Plt Count 236 (130-400) K/uL BMP 08/03/24 04:32 Sodium 135 L Potassium 4.4 Chloride 102 Carbon Dioxide 30 BUN 18 Creatinine 0.86 Glucose 164 H Calcium 9.8
[2024-08-03] MEDS: LACTULOSE SYRUP 30 GM/45 ML UDP PO STA (20:33)
[2024-08-03] MEDS: METHYLNALTREXONE BROMIDE 12 MG/0.6 ML VIAL SQ STA (20:33)
[2024-08-03] MEDS: DOCUSATE SODIUM/SENNA 50/8.6MG TAB PO SCH (20:33)
[2024-08-03] MEDS: guaiFENesin 600 MG TABCR PO SCH (20:34)
[2024-08-03] MEDS ORDERED: SENNA 8.6 MG TAB PO SCH (21:00)
[2024-08-03] MEDS: ACETAMINOPHEN 1,000 MG/100 ML VIAL IV PRN (21:55)
[2024-08-04 06:58] LABS: BUN Creatinine Ratio 19.4 (10-20); Calcium 9.9 mg/dl (8.6-10.3); Creatinine Clr Calc Pharmacy 135.2 ml/min; Potassium 4.6 mmol/L (3.5-5.1)
[2024-08-04 07:11] LABS: INR 2.2 (0.9-1.1); Prothrombin Time 22.1 Seconds (9.0-12.0)
--- NOTE | 2024-08-04 14:00 | XRay Report ---
KUB HISTORY: Acute onset abdominal pain with constipation constipation COMPARISON: CT 07/31/2024 FINDINGS: Gaseous distention of the stomach. Hepatomegaly. Nonobstructive bowel gas pattern. Limited study secondary to body habitus. Extensive colonic fecal retention appears similar to progressed from prior. 4 mm right renal calcification again noted. No ureteral calculi. No pneumoperitoneum or pneu matosis. No fracture. IMPRESSION: 1. Gaseous distention of the stomach with nonobstructive bowel gas pattern. 2. Extensive colonic fecal retention, progressed from prior CT. ACT 112: Negative or not required by law. The above report was generated using voice recognition software. It may contain grammatical, syntax o r spelling errors. Electronically signed by: Shelton Apodaca M.D. 08/04/2024 1:58 PM
--- NOTE | 2024-08-04 15:02 | Hospitalist Progress Note ---
Date of Service August 04, 2024 Assessment & Plan (1) Complicated UTI (urinary tract infection): Plan: Complicated UTI (urinary tract infection): Lloyd catheter associated UTI, POA H/O Recurrent UTIs secondary to BPH/chronic indwelling Lloyd catheter Malpositioned Lloyd catheter--POA Failed outpatient treatment with Macrobid --Urine culture grew providencia -Lloyd catheter changed -Appreciate ID, urology input --IV meropenem changed to Bactrim Patient will eventually need cystoscopy and possible reconstructive urology for ongoing urinary incontinence likely as outpatient Needs follow-up with urology on discharge Continue Bactrim for UTI Plan to discharge home as able Constipation Continue Colace, MiraLAX Added senna Monitor Reviewed KUB Encouraged to ambulate Enema as needed Subtherapeutic INR--resolved IV heparin discontinued Adjust Coumadin dose as needed INR 2.2 today Chronic conditions: Chronic diastolic heart failure (EF 55%, TTE 2023)- patient on the dry side given hemoconcentration- Home diuretics currently on hold; H/O CAD/STEMI as per records H/O Subdural hematoma/subarachnoid hemorrhage as per records Hypertension, BP on the lower side- Resume imdur, lasix as able Hyperlipidemia, on statin COPD--no signs of exacerbation, continue home inhalers 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 Monitor and replete electrolytes as needed Ongoing tobacco abuse. 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 DVT Px: Coumadin CODE STATUS Full code Admission and Anticipated Discharge Date Admission Date: July 31, 2024 Subjective Patient is seen and examined at bedside Still reports constipation No other specific complaints Feels tired Denies any chest pain, dyspnea, nausea, vomiting, abdominal pain Review of Systems Review of Systems: All systems reviewed & are unremarkable except as noted in Subjective Physical Exam Physical Exam: Physical Exam: Vitals signs as noted above General Appearance:Obese, no apparent distress Head: normocephalic, Atraumatic Eyes: normal inspection, EOMI Neck: supple, Trachea midline Respiratory/Chest: Decreased breath sounds, CTA, No accessory muscle use Cardiovascular: S1, S2, No murmur Abdomen/GI:Soft, Non tender, Bowel sounds present Extremities/Musculoskeletal:normal inspection, Trace edema, chronic venous stasis changes Neurologic/Psych:AAOX3, grossly no focal neurological deficits Skin: normal color, warm Results & Data Results & Data Vital Signs (Past 12 Hours) Vital Signs Temp Pulse Resp BP Pulse Ox O2 Del Method O2 Flow Rate 08/04/24 09:00 Room Air, Nasal Cannula 2 08/04/24 07:38 36.6 C 62 18 128/70 96 Room Air 08/04/24 07:31 62 16 96 Room Air Laboratory Results [facility] 08/04/24 06:21 Sodium 137 Potassium 4.6 Chloride 102 Carbon Dioxide 33 H BUN 20 Creatinine 1.03 Glucose 162 H Calcium 9.9
[2024-08-04] MEDS: WARFARIN SOD 3 MG TAB PO SCH (17:24)
[2024-08-04] MEDS: bisacodyL 5 MG TABEC PO PRN (17:25)
[2024-08-04] MEDS: POLYETHYLENE (MIRALAX) 17 GM PACK PO SCH (21:21)
[2024-08-05 06:12] LABS: Basophils # (auto) 0.08 K/uL (0.00-0.20); Basophils % (auto) 0.7 %; Eosinophils # (auto) 0.43 K/uL (0.00-0.50); Eosinophils % (auto) 3.9 %; Hematocrit (blood only) 39.2 % (42.0-52.0); Hemoglobin 12.2 g/dl (14.0-18.0); Immature Granulocytes # (auto) 0.06 K/uL (0.01-0.20); Immature Granulocytes % (auto) 0.5 %; Lymphocytes # (auto) 3.12 K/uL (1.20-3.40); Lymphocytes % (auto) 28.3 %; Mean Corpuscular Hemoglobin 24.4 pg (25.0-34.0); Mean Corpuscular Hgb Conc 31.1 g/dL (32.0-36.0); Mean Corpuscular Volume 78.6 fL (80.0-100.0); Mean Platelet Volume 11.3 fL (9.4-12.4); Monocytes # (auto) 0.75 K/uL (0.11-0.59); Monocytes % (auto) 6.8 %; Neutrophils % (auto) 59.8 %; Platelet Count 219 K/uL (130-400); RDW Coefficient of Variation 18.9 % (11.5-14.5); RDW Standard Deviation 52.6 fL (36.4-46.3); Red Blood Count 4.99 M/uL (4.70-6.10); White Blood Count 11.04 K/ul (4.8-10.8)
[2024-08-05 06:21] LABS: BUN Creatinine Ratio 18.3 (10-20); Calcium 9.8 mg/dl (8.6-10.3); Creatinine Clr Calc Pharmacy 133.9 ml/min; Potassium 4.8 mmol/L (3.5-5.1)
[2024-08-05 06:34] LABS: ANTI-Xa, UFH(UnfractionatedHep < 0.10 IU/ml (0.3-0.7); INR 2.4 (0.9-1.1); Prothrombin Time 24.5 Seconds (9.0-12.0)
[2024-08-05] MEDS: FUROSEMIDE 40 MG TAB PO SCH (09:44)
[2024-08-05] MEDS: METHYLNALTREXONE BROMIDE 12 MG/0.6 ML VIAL SQ ONE (12:16)
[2024-08-05] MEDS: LACTULOSE SYRUP 10 GM/15 ML BTL 960 ML PO PRN (12:50)
--- NOTE | 2024-08-05 14:03 | Hospitalist Progress Note ---
Date of Service August 05, 2024 Assessment & Plan (1) Complicated UTI (urinary tract infection): Plan: Complicated UTI (urinary tract infection): Lloyd catheter associated UTI, POA H/O Recurrent UTIs secondary to BPH/chronic indwelling Lloyd catheter Malpositioned Lloyd catheter--POA Failed outpatient treatment with Macrobid --Urine culture grew providencia -Lloyd catheter changed -Appreciate ID, urology input --IV meropenem changed to Bactrim Patient will eventually need cystoscopy and possible reconstructive urology for ongoing urinary incontinence likely as outpatient Needs follow-up with urology on discharge Continue Bactrim for 2 more days to complete the course Constipation Continue Colace, MiraLAX Added senna Monitor Reviewed KUB Encouraged to ambulate Enema as needed Minimize narcotic use as able Enema as needed Subtherapeutic INR--resolved IV heparin discontinued Adjust Coumadin dose as needed INR 2.4 today Chronic conditions: Chronic diastolic heart failure (EF 55%, TTE 2023)- patient on the dry side given hemoconcentration- Home diuretics currently on hold; H/O CAD/STEMI as per records H/O Subdural hematoma/subarachnoid hemorrhage as per records Hypertension, BP on the lower side- Resume imdur, lasix as able Hyperlipidemia, on statin COPD--no signs of exacerbation, continue home inhalers 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 Monitor and replete electrolytes as needed Ongoing tobacco abuse. 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 DVT Px: Coumadin CODE STATUS Full code Admission and Anticipated Discharge Date Admission Date: July 31, 2024 Subjective Patient is seen and examined at bedside Reports persistent constipation Denies any nausea, vomiting, chest pain, dyspnea No other complaints Review of Systems Review of Systems: All systems reviewed & are unremarkable except as noted in Subjective Physical Exam Physical Exam: Physical Exam: Vitals signs as noted above General Appearance:Obese, no apparent distress Head: normocephalic, Atraumatic Eyes: normal inspection, EOMI Neck: supple, Trachea midline Respiratory/Chest: Decreased breath sounds, CTA, No accessory muscle use Cardiovascular: S1, S2, No murmur Abdomen/GI:Soft, Non tender, Bowel sounds present Extremities/Musculoskeletal:normal inspection, Trace edema, chronic venous stasis changes Neurologic/Psych:AAOX3, grossly no focal neurological deficits Skin: normal color, warm Results & Data Results & Data Vital Signs (Past 12 Hours) Vital Signs Temp Pulse Pulse Resp BP Pulse Ox O2 Del Method 08/05/24 07:06 57 L 17 100 Nasal Cannula 08/05/24 06:55 36.6 C 61 18 120/72 100 Nasal Cannula O2 Flow Rate 08/05/24 07:06 4 08/05/24 06:55 4.0 Laboratory Results Short CBC 08/05/24 Range/Units 05:44 WBC 11.04 H (4.8-10.8) K/ul Hgb 12.2 L (14.0-18.0) g/dl Hct 39.2 L (42.0-52.0) % Plt Count 219 (130-400) K/uL BMP 08/05/24 05:44 Sodium 136 Potassium 4.8 Chloride 105 Carbon Dioxide 29 BUN 19 Creatinine 1.04 Glucose 181 H Calcium 9.8
[2024-08-05] MEDS: ALBUMIN 25% 12.5 GM/50 ML VIAL IV ONE (21:08)
[2024-08-05] MEDS: oxyCODONE HCL IR 5 MG TAB (IMMEDIATE RELEASE) PO PRN (21:08)
[2024-08-06] MEDS: LACTULOSE SYRUP 20 GM/30 ML UDC PO PRN (06:02)
[2024-08-06 06:11] LABS: BUN Creatinine Ratio 18.6 (10-20); Creatinine Clr Calc Pharmacy 136.5 ml/min; Potassium 4.6 mmol/L (3.5-5.1)
[2024-08-06 06:22] LABS: ANTI-Xa, UFH(UnfractionatedHep < 0.10 IU/ml (0.3-0.7); INR 2.2 (0.9-1.1); Prothrombin Time 22.7 Seconds (9.0-12.0)
[2024-08-06] MEDS: ISOSORBIDE DINITRATE 20 MG TAB PO SCH (08:57)
[2024-08-06] MEDS: SPIRONOLACTONE 25 MG TAB PO SCH (09:14)
[2024-08-06] MEDS: TORSEMIDE 100 MG TAB PO SCH (09:15)
--- NOTE | 2024-08-06 09:58 | XRay Report ---
XR chest 1V portable, XR KUB/Abdomen 1 view HISTORY: 54 years-old Male hypoxia acute hypoxia with chest and abdominal pain COMPARISON: Chest radiograph 07/31/2024, CT abdomen and pelvis 07/31/2024 TECHNIQUE: AP view of the chest with KUB radiograph FINDINGS: CHEST: Cardiomegaly. Left atrial exclusion device. Pulmonary vascular congestion without pneumothorax , pleural effusion or airspace consolidation. Unchanged blunting of the costophrenic angles. Bones ap pear grossly intact. KUB: Limited exam secondary to patient body habitus. 4 mm right renal calculus better seen on prior C T. No ureteral calculi identified by radiography. Hepatomegaly. Moderate colonic fecal retention. Non obstructive bowel gas pattern. No acute fracture. Mild gaseous distention of the stomach. IMPRESSION: 1. Cardiomegaly with pulmonary vascular congestion. 2. Nonobstructive bowel gas pattern. 3. 4 mm right renal calculus is better seen on comparison CT exam. 4. Moderate colonic fecal retention. ACT 112: Negative or not required by law. The above report was generated using voice recognition software. It may contain grammatical, syntax o r spelling errors. Electronically signed by: Shelton Apodaca M.D. 08/06/2024 9:56 AM
[2024-08-06] MEDS: LACTULOSE SYRUP 20 GM/30 ML UDC PO SCH (11:19)
--- NOTE | 2024-08-06 13:09 | Hospitalist Progress Note ---
Date of Service August 06, 2024 Assessment & Plan (1) Complicated UTI (urinary tract infection): Plan: Complicated UTI (urinary tract infection): Lloyd catheter associated UTI, POA H/O Recurrent UTIs secondary to BPH/chronic indwelling Lloyd catheter Malpositioned Lloyd catheter--POA Failed outpatient treatment with Macrobid --Urine culture grew providencia -Lloyd catheter changed -Appreciate ID, urology input --IV meropenem changed to Bactrim Patient will eventually need cystoscopy and possible reconstructive urology for ongoing urinary incontinence likely as outpatient Needs follow-up with urology on discharge Will complete Bactrim course tomorrow Recheck CBC tomorrow Constipation Continue Colace, MiraLAX Added senna Monitor Encouraged to ambulate Enema as needed Minimize narcotic use as able Enema as needed KUB today showed no signs of obstruction Subtherapeutic INR--resolved IV heparin discontinued Adjust Coumadin dose as needed INR 2.2 today Hypertension Blood pressure relatively low Isosorbide on hold Monitor blood pressure closely Adjust diuretics as needed Chronic conditions: Chronic diastolic heart failure (EF 55%, TTE 2023)- patient on the dry side given hemoconcentration- Home diuretics currently on hold; H/O CAD/STEMI as per records H/O Subdural hematoma/subarachnoid hemorrhage as per records Hyperlipidemia, on statin COPD--no signs of exacerbation, continue home inhalers 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 Monitor and replete electrolytes as needed Ongoing tobacco abuse. 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 DVT Px: Coumadin CODE STATUS Full code Admission and Anticipated Discharge Date Admission Date: July 31, 2024 Subjective Patient is seen and examined at bedside Reports nausea and constipation States feeling tired Denies any vomiting, chest pain, dyspnea Review of Systems Review of Systems: All systems reviewed & are unremarkable except as noted in Subjective Physical Exam Physical Exam: Physical Exam: Vitals signs as noted above General Appearance:Obese, no apparent distress Head: normocephalic, Atraumatic Eyes: normal inspection, EOMI Neck: supple, Trachea midline Respiratory/Chest: Decreased breath sounds, CTA, No accessory muscle use Cardiovascular: S1, S2, No murmur Abdomen/GI:Soft, Non tender, Bowel sounds present Extremities/Musculoskeletal:normal inspection, Trace edema, chronic venous stasis changes Neurologic/Psych:AAOX3, grossly no focal neurological deficits Skin: normal color, warm Results & Data Results & Data Vital Signs (Past 12 Hours) Vital Signs Temp Pulse Resp BP BP Pulse Ox O2 Del Method 08/06/24 11:24 60 104/66 97 Room Air 08/06/24 09:11 98/60 L 08/06/24 08:35 59 L 100/60 93 Room Air 08/06/24 07:46 36.4 C L 67 16 117/72 100 Room Air 08/06/24 07:35 71 16 100 Nasal Cannula O2 Flow Rate 08/06/24 11:24 08/06/24 09:11 08/06/24 08:35 08/06/24 07:46 08/06/24 07:35 4 Laboratory Results [facility] 08/06/24 05:18 Sodium 138 Potassium 4.6 Chloride 103 Carbon Dioxide 30 BUN 19 Creatinine 1.02 Glucose 199 H Calcium 10.0
[2024-08-06] MEDS: SOD PHOSPHATE/SOD BIPHOSPHATE ENEMA 132 ML BTL PR ONE (17:31)
[2024-08-06] MEDS: ALBUT/IPRATROP 3MG/0.5MG NEB 3 ML VIAL INH SCH (19:47)
[2024-08-06] MEDS: oxyCODONE HCL IR 5 MG TAB (IMMEDIATE RELEASE) PO PRN (21:11)
[2024-08-06] MEDS: ACETAMINOPHEN 1,000 MG/100 ML VIAL IV PRN (23:10)
[2024-08-07 06:14] LABS: Basophils # (auto) 0.09 K/uL (0.00-0.20); Basophils % (auto) 0.7 %; Eosinophils # (auto) 0.57 K/uL (0.00-0.50); Eosinophils % (auto) 4.4 %; Hematocrit (blood only) 40.2 % (42.0-52.0); Hemoglobin 12.8 g/dl (14.0-18.0); Immature Granulocytes # (auto) 0.08 K/uL (0.01-0.20); Immature Granulocytes % (auto) 0.6 %; Lymphocytes % (auto) 24.5 %; Mean Corpuscular Hemoglobin 24.6 pg (25.0-34.0); Mean Corpuscular Hgb Conc 31.8 g/dL (32.0-36.0); Mean Corpuscular Volume 77.2 fL (80.0-100.0); Monocytes # (auto) 0.83 K/uL (0.11-0.59); Monocytes % (auto) 6.4 %; Neutrophils % (auto) 63.4 %; Platelet Count 218 K/uL (130-400); RDW Coefficient of Variation 18.8 % (11.5-14.5); RDW Standard Deviation 50.4 fL (36.4-46.3); Red Blood Count 5.21 M/uL (4.70-6.10); White Blood Count 13.07 K/ul (4.8-10.8)
[2024-08-07 06:26] LABS: BUN Creatinine Ratio 18.7 (10-20); Calcium 9.7 mg/dl (8.6-10.3); Creatinine Clr Calc Pharmacy 113.2 ml/min; Magnesium 1.8 mg/dl (1.7-2.4); Potassium 3.9 mmol/L (3.5-5.1)
[2024-08-07 07:00] LABS: ANTI-Xa, UFH(UnfractionatedHep < 0.10 IU/ml (0.3-0.7); INR 1.9 (0.9-1.1); Prothrombin Time 19.2 Seconds (9.0-12.0)
[2024-08-07 07:11] VITALS: RESP 16
[2024-08-07] MEDS: TORSEMIDE 10 MG TAB PO SCH (10:14)
[2024-08-07 12:11] VITALS: BP 133/73; PULSE 72; TEMP 98.1; O2SAT 95
--- NOTE | 2024-08-07 12:50 | Hospitalist Progress Note ---
Date of Service August 07, 2024 Assessment & Plan (1) Complicated UTI (urinary tract infection): Plan: Complicated UTI (urinary tract infection): Lloyd catheter associated UTI, POA H/O Recurrent UTIs secondary to BPH/chronic indwelling Lloyd catheter Malpositioned Lloyd catheter--POA Failed outpatient treatment with Macrobid --Urine culture grew providencia -Lloyd catheter changed -Appreciate ID, urology input --IV meropenem changed to Bactrim Patient will eventually need cystoscopy and possible reconstructive urology for ongoing urinary incontinence likely as outpatient Completed Bactrim course as recommended by infectious disease Advised to follow-up with urology on discharge Plan to discharge home today Constipation Continue Colace, MiraLAX Added senna Monitor Encouraged to ambulate Enema as needed Minimize narcotic use as able Enema as needed KUB today showed no signs of obstruction Resolved with bowel regimen Subtherapeutic INR--resolved IV heparin discontinued Adjust Coumadin dose as needed INR 1.9 today Hypertension Blood pressure relatively low Isosorbide on hold Monitor blood pressure closely Adjust diuretics as needed Blood pressure better today Chronic conditions: Chronic diastolic heart failure (EF 55%, TTE 2023)- patient on the dry side given hemoconcentration- Home diuretics currently on hold; H/O CAD/STEMI as per records H/O Subdural hematoma/subarachnoid hemorrhage as per records Hyperlipidemia, on statin COPD--no signs of exacerbation, continue home inhalers 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 Monitor and replete electrolytes as needed Ongoing tobacco abuse. 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 DVT Px: Coumadin CODE STATUS Full code Disposition Home with home health Admission and Anticipated Discharge Date Admission Date: July 31, 2024 Subjective Patient is seen and examined at bedside No new complaints Constipation resolved Denies any nausea, vomiting, chest pain, dyspnea, dizziness Review of Systems Review of Systems: All systems reviewed & are unremarkable except as noted in Subjective Physical Exam Physical Exam: Physical Exam: Vitals signs as noted above General Appearance:Obese, no apparent distress Head: normocephalic, Atraumatic Eyes: normal inspection, EOMI Neck: supple, Trachea midline Respiratory/Chest: Decreased breath sounds, CTA, No accessory muscle use Cardiovascular: S1, S2, No murmur Abdomen/GI:Soft, Non tender, Bowel sounds present Extremities/Musculoskeletal:normal inspection, Trace edema, chronic venous stasis changes Neurologic/Psych:AAOX3, grossly no focal neurological deficits Skin: normal color, warm Results & Data Results & Data Vital Signs (Past 12 Hours) Vital Signs Temp Pulse Pulse Resp BP Pulse Ox O2 Del Method 08/07/24 12:07 36.7 C 72 72 16 133/73 95 Room Air 08/07/24 10:24 90/48 L 08/07/24 07:37 36.4 C L 60 16 100/66 96 Room Air 08/07/24 07:11 68 16 98 Nasal Cannula O2 Flow Rate 08/07/24 12:07 08/07/24 10:24 08/07/24 07:37 08/07/24 07:11 4 Laboratory Results Short CBC 08/07/24 Range/Units 05:53 WBC 13.07 H (4.8-10.8) K/ul Hgb 12.8 L (14.0-18.0) g/dl Hct 40.2 L (42.0-52.0) % Plt Count 218 (130-400) K/uL BMP 08/07/24 05:53 Sodium 133 L Potassium 3.9 Chloride 95 L Carbon Dioxide 32 BUN 23 Creatinine 1.23 Glucose 180 H Calcium 9.7
[2024-08-07] MEDS ORDERED: TAMSULOSIN HCL 0.4 MG CAP PO SCH (12:52)
--- NOTE | 2024-08-07 13:05 | Discharge Summary ---
Date of Service August 07, 2024 Admission HPI Per Admitting Provider History obtained from patient and records. Medical history significant for chronic diastolic heart failure (EF 55%, TTE 2023), history CAD/STEMI as per records, history subdural hematoma/subarachnoid hemorrhage as per records (no operative intervention), hypertension, hyperlipidemia, COPD, recurrent PE on Coumadin, DM 2 on oral medications, recurrent UTIs secondary to BPH/chronic urinary retention indwelling Lloyd catheter, chronic anemia (baseline hemoglobin 11-12), personality disorder as per records, chronic pain on buprenorphine, drug-seeking behavior as per records, hx MRSA/VRE, ongoing tobacco abuse. Last confinement February 2024 for catheter associated UTI. Urine CS grew Enterobacter. Patient discharged on Levaquin course. Patient with UTI symptoms a few weeks ago. Outpatient urine CS grew Providentia. Patient prescribed Macrodantin course. Persistent discomfort despite completing antibiotic Rx. Achy abdominal and flank pain without hematuria symptoms. Some chills at home. No headache, no unusual chest pain, no SOB. Medical History as above Surgical History : Foot/toe surgery, nerve repair, hand surgery, scalp neck wound injury Family History : Breast cancer, heart disease, COPD Personal/Social history : One pack daily, no EtOH intake, disabled Principal Diagnosis Complicated UTI Constipation Supratherapeutic INR Hypertension Discharge Data Allergies Allergy/AdvReac Type Severity Reaction Status Date / Time Iodinated Contrast Media Allergy Severe Itching, Verified 03/14/24 15:50 hypoxia, bronchospasm cefepime Allergy Intermediate rash Verified 03/14/24 15:43 daptomycin Allergy Intermediate rash Verified 03/14/24 15:43 fentanyl Allergy Intermediate RASH/HIVES/SKIN Verified 03/14/24 15:43 REDNESS acetaminophen [From Tylenol] AdvReac Intermediate IRRITATES Verified 03/14/24 15:43 & UPSET STOMACH ibuprofen AdvReac Intermediate Nausea Verified 03/14/24 15:43 naloxone AdvReac Intermediate extremely Verified 03/14/24 15:43 sick valproic acid AdvReac Intermediate PANCREATITS Verified 03/14/24 15:43 Consultations 07/31/24 19:12 ED Decision to Admit Stat 08/01/24 10:22 Consult Urology Routine 08/01/24 16:16 Consult Infectious Diseases Routine Procedures Performed Laboratory Results WBC 13.07 K/ul (4.8-10.8) H 08/07/24 05:53 RBC 5.21 M/uL (4.70-6.10) 08/07/24 05:53 Hgb 12.8 g/dl (14.0-18.0) L 08/07/24 05:53 Hct 40.2 % (42.0-52.0) L 08/07/24 05:53 MCV 77.2 fL (80.0-100.0) L 08/07/24 05:53 MCH 24.6 pg (25.0-34.0) L 08/07/24 05:53 MCHC 31.8 g/dL (32.0-36.0) L 08/07/24 05:53 RDW Std Deviation 50.4 fL (36.4-46.3) H 08/07/24 05:53 RDW Coeff of Megan 18.8 % (11.5-14.5) H 08/07/24 05:53 Plt Count 218 K/uL (130-400) 08/07/24 05:53 MPV 11.0 fL (9.4-12.4) 08/07/24 05:53 Immature Gran % (Auto) 0.6 % 08/07/24 05:53 Neut % (Auto) 63.4 % 08/07/24 05:53 Lymph % (Auto) 24.5 % 08/07/24 05:53 [place] % (Auto) 6.4 % 08/07/24 05:53 Eos % (Auto) 4.4 % 08/07/24 05:53 Baso % (Auto) 0.7 % 08/07/24 05:53 Neut # (Auto) 8.30 K/uL (1.40-6.50) H 08/07/24 05:53 Lymph # (Auto) 3.20 K/uL (1.20-3.40) 08/07/24 05:53 [place] # (Auto) 0.83 K/uL (0.11-0.59) H 08/07/24 05:53 Eos # (Auto) 0.57 K/uL (0.00-0.50) H 08/07/24 05:53 Baso # (Auto) 0.09 K/uL (0.00-0.20) 08/07/24 05:53 Immature Gran # (Auto) 0.08 K/uL (0.01-0.20) 08/07/24 05:53 PT 19.2 Seconds (9.0-12.0) H 08/07/24 05:53 INR 1.9 (0.9-1.1) H 08/07/24 05:53 APTT 33 Seconds (21-31) H 08/01/24 20:48 PTT Ratio 1.2 08/01/24 20:48 Heparin Anti-Xa, Unfract < 0.10 IU/ml (0.3-0.7) L 08/07/24 05:53 Sodium 133 mmol/L (136-145) L 08/07/24 05:53 Potassium 3.9 mmol/L (3.5-5.1) 08/07/24 05:53 Chloride 95 mmol/L (98-107) L 08/07/24 05:53 Carbon Dioxide 32 mmol/L (21-32) 08/07/24 05:53 Anion Gap 6 (3-11) 08/07/24 05:53 BUN 23 mg/dl (6-23) 08/07/24 05:53 Creatinine 1.23 mg/dl (0.6-1.4) 08/07/24 05:53 Est Cr Clr Drug Dosing 113.2 ml/min 08/07/24 05:53 eGFR 69.77 08/07/24 05:53 BUN/Creatinine Ratio 18.7 (10-20) 08/07/24 05:53 Glucose 180 mg/dl (70-99(Fasting)) H 08/07/24 05:53 POC Glucose 165 mg/dl (70-99) H 08/07/24 11:44 Lactate 1.4 mmol/L (0.4-2.0) 07/31/24 17:20 Calcium 9.7 mg/dl (8.6-10.3) 08/07/24 05:53 Magnesium 1.8 mg/dl (1.7-2.4) 08/07/24 05:53 Total Bilirubin 1.0 mg/dl (0.2-1.0) 07/31/24 16:15 AST 13 U/L (13-39) 07/31/24 16:15 ALT 17 U/L (7-52) 07/31/24 16:15 Alkaline Phosphatase 118 U/L (34-104) H 07/31/24 16:15 Troponin I High Sens 8.8 pg/ml (0-20) 07/31/24 16:15 Total Protein 7.1 gm/dl (6.0-8.3) 07/31/24 16:15 Albumin 3.7 gm/dl (3.4-5.0) 07/31/24 16:15 Globulin 3.4 gm/dl (2.5-4.0) 07/31/24 16:15 Albumin/Globulin Ratio 1.1 (0.9-2) 07/31/24 16:15 Procalcitonin 0.07 ng/ml (0-0.5) 07/31/24 16:15 TSH 1.026 uIu/ml (0.300-4.500) 07/31/24 16:15 Urine Color Yellow 07/31/24 15:45 Urine Appearance Cloudy (Clear) A 07/31/24 15:45 Urine pH 7.5 (4.5-7.5) 07/31/24 15:45 Ur Specific [place] 1.011 (1.000-1.030) 07/31/24 15:45 Urine Protein Negative (Negative) 07/31/24 15:45 Urine Glucose (UA) Negative (Negative) 07/31/24 15:45 Urine Ketones Negative (Negative) 07/31/24 15:45 Urine Blood Negative (Negative) 07/31/24 15:45 Urine Nitrite Negative (Negative) 07/31/24 15:45 Urine Bilirubin Negative (Negative) 07/31/24 15:45 Urine Urobilinogen Negative (Negative) 07/31/24 15:45 Ur Leukocyte Esterase 3+ (Negative) H 07/31/24 15:45 Urine WBC (Auto) >50 /hpf (0-5) H 07/31/24 15:45 Urine RBC (Auto) 3-5 /hpf (0-2) H 07/31/24 15:45 U Hyaline Cast (Auto) 0-2 /lpf (0-2) 07/31/24 15:45 U Epithel Cells (Auto) 0-2 /hpf (0-2) 07/31/24 15:45 Urine Bacteria (Auto) None Seen (None Seen) 07/31/24 15:45 Adenovirus (PCR) Not Detected (NotDetected) 07/31/24 16:15 B. pertussis DNA (PCR) Not Detected (NotDetected) 07/31/24 16:15 B.parapertussis DNA PCR Not Detected (NotDetected) 07/31/24 16:15 C. pneumoniae DNA (PCR) Not Detected (NotDetected) 07/31/24 16:15 Coronavirus OC43 (PCR) Not Detected (NotDetected) 07/31/24 16:15 Coronavirus HKU1 (PCR) Not Detected (NotDetected) 07/31/24 16:15 Coronavirus 229E (PCR) Not Detected (NotDetected) 07/31/24 16:15 SARS-CoV-2 (PCR) Not Detected (NotDetected) 07/31/24 16:15 Coronavirus NL63 (PCR) Not Detected (NotDetected) 07/31/24 16:15 Human Metapneumovir PCR Not Detected (NotDetected) 07/31/24 16:15 Influenza Type A (PCR) Not Detected (NotDetected) 07/31/24 16:15 Influenza Type B (PCR) Not Detected (NotDetected) 07/31/24 16:15 M. pneumoniae (PCR) Not Detected (NotDetected) 07/31/24 16:15 Parainfluenza 1 (PCR) Not Detected (NotDetected) 07/31/24 16:15 Parainfluenza 2 (PCR) Not Detected (NotDetected) 07/31/24 16:15 Parainfluenza 3 (PCR) Not Detected (NotDetected) 07/31/24 16:15 Parainfluenza 4 (PCR) Not Detected (NotDetected) 07/31/24 16:15 RSV (PCR) Not Detected (NotDetected) 07/31/24 16:15 Entero/Rhino (PCR) Not Detected (NotDetected) 07/31/24 16:15 Impressions Abdomen/Pelvis CT 07/31/24 21:31 Exam(s): CT ABDOMEN + PELVIS Without Contrast EXAM: CT Abdomen and Pelvis Without Intravenous Contrast CLINICAL HISTORY: Reason for exam: flank pain. TECHNIQUE: Axial computed tomography images of the abdomen and pelvis without intravenous contrast. CTDI is 36.23 mGy and DLP is 1786.69 mGy-cm. Automated exposure control was utilized for the study. A dose lowering technique was utilized adhering to the principles of ALARA. COMPARISON: 03/14/24 FINDINGS: Lung bases: Unremarkable. ABDOMEN: Liver: Unremarkable. Gallbladder and bile ducts: Unremarkable. No calcified stones. No ductal dilation. Pancreas: Unremarkable. No ductal dilation. Spleen: Unremarkable. No splenomegaly. Adrenals: Unremarkable. No mass. Kidneys and ureters: Nonobstructing 4 mm right kidney stone. No hydronephrosis of either kidney. Stomach and bowel: Unremarkable. No obstruction. No mucosal thickening. PELVIS: Appendix: Appendectomy. Bladder: Gas in urinary bladder suggesting recent instrumentation. Small bladder dome diverticulum. No stones. Reproductive: Prostate is small in size. ABDOMEN and PELVIS: Intraperitoneal space: Unremarkable. No free air, significant free fluid, or fluid collection. Bones/joints: Mild chronic L1 superior endplate compression fracture. No acute fracture or dislocation. Soft tissues: Fat-containing umbilical hernia, small in size. Vasculature: Unremarkable. No abdominal aortic aneurysm. Lymph nodes: Unremarkable. No enlarged lymph nodes. IMPRESSION: 1. Nonobstructing 4 mm right kidney stone. No hydronephrosis of either kidney. 2. Gas in urinary bladder suggesting recent instrumentation. Correlate clinically. Electronically signed by: Yuliet Lawrence M.D. 08/01/24 01:08 AM Chest X-Ray 08/06/24 09:24 XR chest 1V portable, XR KUB/Abdomen 1 view HISTORY: 54 years-old Male hypoxia acute hypoxia with chest and abdominal pain COMPARISON: Chest radiograph 07/31/2024, CT abdomen and pelvis 07/31/2024 TECHNIQUE: AP view of the chest with KUB radiograph FINDINGS: CHEST: Cardiomegaly. Left atrial exclusion device. Pulmonary vascular congestion without pneumothorax, pleural effusion or airspace consolidation. Unchanged blunting of the costophrenic angles. Bones appear grossly intact. KUB: Limited exam secondary to patient body habitus. 4 mm right renal calculus better seen on prior CT. No ureteral calculi identified by radiography. Hepatomegaly. Moderate colonic fecal retention. Nonobstructive bowel gas pattern. No acute fracture. Mild gaseous distention of the stomach. IMPRESSION: 1. Cardiomegaly with pulmonary vascular congestion. 2. Nonobstructive bowel gas pattern. 3. 4 mm right renal calculus is better seen on comparison CT exam. 4. Moderate colonic fecal retention. ACT 112: Negative or not required by law. The above report was generated using voice recognition software. It may contain grammatical, syntax or spelling errors. Electronically signed by: Shelton Apodaca M.D. 08/06/2024 9:56 AM KUB X-Ray 08/06/24 09:24 XR chest 1V portable, XR KUB/Abdomen 1 view HISTORY: 54 years-old Male hypoxia acute hypoxia with chest and abdominal pain COMPARISON: Chest radiograph 07/31/2024, CT abdomen and pelvis 07/31/2024 TECHNIQUE: AP view of the chest with KUB radiograph FINDINGS: CHEST: Cardiomegaly. Left atrial exclusion device. Pulmonary vascular congestion without pneumothorax, pleural effusion or airspace consolidation. Unchanged blunting of the costophrenic angles. Bones appear grossly intact. KUB: Limited exam secondary to patient body habitus. 4 mm right renal calculus better seen on prior CT. No ureteral calculi identified by radiography. Hepatomegaly. Moderate colonic fecal retention. Nonobstructive bowel gas pattern. No acute fracture. Mild gaseous distention of the stomach. IMPRESSION: 1. Cardiomegaly with pulmonary vascular congestion. 2. Nonobstructive bowel gas pattern. 3. 4 mm right renal calculus is better seen on comparison CT exam. 4. Moderate colonic fecal retention. ACT 112: Negative or not required by law. The above report was generated using voice recognition software. It may contain grammatical, syntax or spelling errors. Electronically signed by: Shelton Apodaca M.D. 08/06/2024 9:56 AM Ordered Studies 07/31/24 21:31 CT abd pelvis wo con Stat Hospital Course (1) Complicated UTI (urinary tract infection): Complicated UTI (urinary tract infection): Lloyd catheter associated UTI, POA H/O Recurrent UTIs secondary to BPH/chronic indwelling Lloyd catheter Malpositioned Lloyd catheter--POA Failed outpatient treatment with Macrobid --Urine culture grew providencia -Lloyd catheter changed -Appreciate ID, urology input --IV meropenem changed to Bactrim Patient will eventually need cystoscopy and possible reconstructive urology for ongoing urinary incontinence likely as outpatient Completed Bactrim course as recommended by infectious disease Advised to follow-up with urology on discharge Plan to discharge home today Constipation Continue Colace, MiraLAX Added senna Monitor Encouraged to ambulate Enema as needed Minimize narcotic use as able Enema as needed KUB today showed no signs of obstruction Resolved with bowel regimen Subtherapeutic INR--resolved IV heparin discontinued Adjust Coumadin dose as needed INR 1.9 today Hypertension Blood pressure relatively low Isosorbide on hold Monitor blood pressure closely Adjust diuretics as needed Blood pressure better today Chronic conditions: Chronic diastolic heart failure (EF 55%, TTE 2023)- patient on the dry side given hemoconcentration- Home diuretics currently on hold; H/O CAD/STEMI as per records H/O Subdural hematoma/subarachnoid hemorrhage as per records Hyperlipidemia, on statin COPD--no signs of exacerbation, continue home inhalers 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 Monitor and replete electrolytes as needed Ongoing tobacco abuse. [employer] to quit smoking DVT Px: Coumadin CODE STATUS Full code Disposition Home with home health Total Time Total Time Spent Total Time Spent (In Minutes): 44 minutes Discharge Plan Discharge Items Patient Disposition: Home - Self-Care Reason For Visit: COMP UTI Discharge Diagnosis: Complicated UTI Constipation Supratherapeutic INR Hypertension Activity: Per Instructions section Exercise/Sports: Gradually increase as tolerated Non-emergency contact: Primary Care Provider and Urologist Call non-emergency contact if: you have any medication questions, your symptoms worsen, your pain is concerning for you and you have a fever Follow-up/Referrals: Kehinde Mc MD [Outside Practitioners] - ( Date & Time 08/10/2024 11:20 AM Provider Kehinde Mc MD Department [facility] will call you to schedule follow up appointment. ) Diet: Carb Consistent or DM2 Addtl Attending Provider Instructions: Follow-up with your primary care physician as scheduled Follow-up with your urologist Dr. Barth as recommended Follow-up with Coumadin clinic in 1 week for monitoring your PT/INR and adj usting Coumadin dose as needed --Monitor your blood pressure regularly. Discuss with your physician for further adjustment of medications as needed. -- Your tamsulosin dose is decreased to 0.4 mg from 0.8 mg as your blood pressure has been low. Seek immediate medical attention if your symptoms reoccur or worsen Please take all medications as instructed on discharge list below. Please call if you have any questions or problems. You can reach a [facility] hospitalist on duty at [facility] 24 hours a day by calling [phone] Pending Studies at Discharge: No Stand-Alone Forms: [facility], Smoking Cessation Medications and DC Order Prescriptions: New polyethylene glycol 3350 [Miralax] 17 gram Powder In Packet 17 g PO BID PRN (Reason: Constipation) Qty: 30 0RF Continued nitroglycerin [Nitrostat] 0.4 mg tablet, sublingual 0.4 mg Sublingual DIRECTED PRN (Reason: CHEST PAIN) Rx Instructions: PLACE ONE TABLET UNDER THE TONGUE EVERY 5 MINUTES FOR UP TO 3 DOSES OVER 15 MINUTES IF NEEDED FOR CHEST PAIN nystatin 100,000 unit/gram Powder 1 applic TOPICAL TID PRN (Reason: Skin Irritation) Rx Instructions: APPLY DIRECTED TO ABDOMINAL FOLDS duloxetine 60 mg capsule,delayed release(DR/EC) 60 mg PO DAILY famotidine 20 mg tablet 20 mg PO HS aspirin [Ecotrin Low Strength] 81 mg tablet,delayed release (DR/EC) 81 mg PO QAM finasteride 5 mg tablet 5 mg PO QAM folic acid 1 mg Tablet 1 mg PO QAM glipizide 10 mg tablet 10 mg PO DIRECTED Rx Instructions: Take one tablet by mouth 2 times a day 30 minutes before meals ferrous sulfate 325 mg (65 mg iron) Tablet 325 mg PO QAM Rx Instructions: Take with breakfast ipratropium-albuterol 0.5 mg-3 mg(2.5 mg base)/3 mL Solution For Nebulization 3 ml INHALATION TID fluticasone propionate 93 mcg/actuation Aerosol Breath Activated 2 spray INTRANASAL DAILY Rx Instructions: into each nostril buprenorphine HCl 8 mg tablet, sublingual See Rx Instructions .ROUTE .COMPLEX Rx Instructions: 8 mg sublingually ;Pt takes 20mg total a day: 8mg in AM, 4mg at 1400 and 8mg with evening medications metoprolol succinate 50 mg Tablet Extended Release 24 Hr 75 mg PO BID 30 Days Qty: 180 0RF isosorbide dinitrate 30 mg tablet 30 mg PO DAILY Qty: 30 0RF cyclobenzaprine 10 mg Tablet 10 mg PO BID PRN (Reason: Muscle Spasm) Qty: 15 0RF fluticasone propion-salmeterol [Advair Diskus] 250-50 mcg/dose Blister With Device 1 inh INHALATION BID 30 Days Qty: 1 0RF omeprazole 20 mg Capsule,Delayed Release(Dr/Ec) 20 mg PO DAILYBB 30 Days Qty: 30 0RF budesonide 0.5 mg/2 mL suspension for nebulization 0.5 mg inhalation Q12H 30 Days Qty: 60 0RF albuterol sulfate 90 mcg/actuation Hfa Aerosol Inhaler 2 puff INHALATION Q4 PRN (Reason: Dyspnea) 30 Days Qty: 1 0RF warfarin 4 mg tablet 2 - 4 mg PO QPM Hold Instructions: Continue on increased doses of warfarin until therapeutic per Anticoagulation clinic Rx Instructions: DIRECTED PER ANTICOAG. atorvastatin 80 mg tablet 80 mg PO QPM Rx Instructions: TAKES Q AFTERNOON Lactobacillus acidophilus Tablet,Chewable 1 tab PO TID spironolactone 25 mg tablet 25 mg PO QAM potassium chloride 20 mEq tablet,ER particles/crystals 20 meq PO BID magnesium oxide 400 mg (241.3 mg magnesium) tablet 400 mg PO QAM torsemide 100 mg tablet 100 mg PO DAILY ondansetron HCl 4 mg Tablet 4 mg PO Q8H PRN (Reason: NAUSEA/VOMITING) Qty: 12 0RF pantoprazole 40 mg Tablet,Delayed Release (Dr/Ec) 40 mg PO DAILY docusate sodium [Stool Softener] 100 mg Tablet 100 mg PO BID gabapentin 800 mg tablet 600 mg PO TID Rx Instructions: MAY INCREASE TO 1,600 MG TID PER GMG. oxycodone 5 mg tablet 10 mg PO BID PRN (Reason: pain (scale score 7-10)) Changed tamsulosin [Flomax] 0.4 mg capsule 0.4 mg PO QAM Qty: 180 0RF Discontinued levofloxacin 750 mg Tablet 750 mg PO DAILY@1100 Qty: 2 0RF Discharge Orders: Discharge Order (Routine); Ordered 08/07/24 Ordered By: Dipesh Wright Admission Data Admit Date/Time: 07/31/24 21:29 Attending Provider: Dipesh Wright Admit Provider: Armando Rojas Primary Care Provider: Roberto Askew Other Providers: Waldemar Galarza; Kehinde Mc; Peterson Palafox; Luis F Maciel; Flaco Last I.; Jin Olivier II; Liliam Romero; Owen Badillo; Robert De Guzman; Steve Almendarez
[2024-08-07] MEDS: oxyCODONE HCL IR 5 MG TAB (IMMEDIATE RELEASE) PO ONE (13:15)
[2024-08-07] MEDS ORDERED: WARFARIN SOD 5 MG TAB PO SCH (16:00)
[2024-08-08] MEDS ORDERED: TORSEMIDE 100 MG TAB PO SCH (09:00)
== END 2024-08-07 13:35 | disposition home or self-care (01) | DRG 699 ==
LOC: ED 15:44 → 3E 21:29 → SUATTDRO 21:29 → 3E 22:37

== ENCOUNTER 2024-08-28 17:44 | Observation (INO) ==
--- NOTE | 2024-08-28 18:54 | XRay Report ---
EXAM: Radiograph of the Chest 1 View INDICATION: Vomiting and abdominal pain. TECHNIQUE: Frontal view of the chest. COMPARISON: 07/31/2024 FINDINGS: Lungs and pleural spaces: Stable small pleural effusions and mild pulmonary vascular congestion. No confluent consolidation. No pneumothorax. Heart: Stable cardiomegaly. Loop recorder present. Mediastinum: Normal contour. Bones/joints: Degenerative changes noted throughout the spine. No acute osseous abnormality seen. Soft tissues: No abnormality noted. No radiopaque foreign body noted. Upper abdomen: No free intraperitoneal air subjacent to the diaphragms. IMPRESSION: Stable small pleural effusions and mild pulmonary vascular congestion. ACT 112: Negative or not required by law. Electronically signed by Rachel Morgan 08-28-2024 6:54 PM
[2024-08-28 19:13] LABS: Basophils # (auto) 0.09 K/uL (0.00-0.20); Basophils % (auto) 0.5 %; Eosinophils # (auto) 0.22 K/uL (0.00-0.50); Eosinophils % (auto) 1.1 %; Hematocrit (blood only) 45.7 % (42.0-52.0); Hemoglobin 14.6 g/dl (14.0-18.0); Immature Granulocytes % (auto) 0.5 %; Lymphocytes # (auto) 2.75 K/uL (1.20-3.40); Lymphocytes % (auto) 13.9 %; Mean Corpuscular Hemoglobin 24.1 pg (25.0-34.0); Mean Corpuscular Hgb Conc 31.9 g/dL (32.0-36.0); Mean Corpuscular Volume 75.5 fL (80.0-100.0); Mean Platelet Volume 9.8 fL (9.4-12.4); Monocytes # (auto) 1.24 K/uL (0.11-0.59); Monocytes % (auto) 6.3 %; Neutrophils # (auto) 15.43 K/uL (1.40-6.50); Neutrophils % (auto) 77.7 %; Platelet Count 266 K/uL (130-400); RDW Coefficient of Variation 20.5 % (11.5-14.5); RDW Standard Deviation 51.8 fL (36.4-46.3); Red Blood Count 6.05 M/uL (4.70-6.10); White Blood Count 19.83 K/ul (4.8-10.8)
[2024-08-28 19:32] LABS: Albumin Level 3.9 gm/dl (3.4-5.0); BUN Creatinine Ratio 15.5 (10-20); Bilirubin,Total 1.3 mg/dl (0.2-1.0); Creatinine Clr Calc Pharmacy 125.7 ml/min; Globulin 3.9 gm/dl (2.5-4.0); Total Protein 7.8 gm/dl (6.0-8.3)
[2024-08-28 19:39] LABS: Troponin I High Sensitivity 4.7 pg/ml (0-20)
[2024-08-28] MEDS: PANTOprazole 40 MG/10 ML SYR IV ONE (19:47)
[2024-08-28] MEDS: ONDANSETRON INJ 2 MG/ML 2 ML VIAL IV STA (19:47)
[2024-08-28 19:52] LABS: Anisocytosis Present; Ovalocytes 1+
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
[2024-08-28 20:07] LABS: INR 2.2 (0.9-1.1); Prothrombin Time 21.9 Seconds (9.0-12.0)
[2024-08-28 20:18] LABS: Appearance Urine Cloudy (Clear); Bilirubin Urine Negative (Negative); Blood Urine 2+ (Negative); Color Urine Yellow; Glucose Urine UA Negative (Negative); Ketones Urine Negative (Negative); Leukocyte Esterase Urine Trace (Negative); Nitrite Urine Positive (Negative); Protein Urine 1+ (Negative); Urobilinogen Urine Negative (Negative); pH Urine 5.5 (4.5-7.5)
[2024-08-28 20:56] LABS: Renal Epithelial Cells Urine Present /lpf (None Presnt)
[2024-08-28 20:57] LABS: Bacteria Urine 1+ (None Seen)
[2024-08-28] MEDS: MoRPHine SULFATE 4 MG/ML 1 ML CARP\\VIAL IV STA (22:51)
--- NOTE | 2024-08-28 22:52 | CT Scan Report ---
Exam(s): CT ABDOMEN + PELVIS Without Contrast EXAM: CT Abdomen and Pelvis Without Intravenous Contrast CLINICAL HISTORY: Reason for exam: abd pain, vomiting dark material. TECHNIQUE: Axial computed tomography images of the abdomen and pelvis without intravenous contrast. CTDI is 34 mGy and DLP is 1736 mGy-cm. Automated exposure control was utilized for the study. A dose lowering technique was utilized adhering to the principles of ALARA. COMPARISON: No relevant prior studies available. FINDINGS: ABDOMEN: Liver: Unremarkable. Gallbladder and bile ducts: Unremarkable. Pancreas: Unremarkable. Spleen: Unremarkable. Adrenals: Unremarkable. Kidneys and ureters: Unremarkable. No obstructing stones. No hydronephrosis. Stomach and bowel: No bowel obstruction. No inflammatory changes. PELVIS: Appendix: Status post appendectomy. Bladder: Lloyd catheter within the bladder. Reproductive: Unremarkable as visualized. ABDOMEN and PELVIS: Intraperitoneal space: Unremarkable. No free air. No significant fluid collection. Bones/joints: No acute fracture. Soft tissues: Small fat-containing umbilical hernia. Vasculature: Unremarkable. Lymph nodes: Unremarkable. IMPRESSION: No acute findings in the abdomen or pelvis. Electronically signed by: Jovon Almanzar MD 08/28/24 22:51 PM
[2024-08-29] MEDS: cefTRIAXone SODIUM 1,000 MG/50 ML BAG IV STA (00:24)
[2024-08-29] MEDS: POTASSIUM CHLORIDE / WTR 10 MEQ/100 ML PLCT IV SCH (00:56)
[2024-08-29] MEDS: POTASSIUM CHLORIDE CRTAB 20 MEQ TABCR PO STA (00:56)
[2024-08-29] MEDS ORDERED: PANTOPRAZOLE BOLUS/DRIP IV STA (01:32)
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
[2024-08-29] MEDS: SODIUM CHLORIDE 0.9% 1,000 ML IV SCH (01:49)
[2024-08-29] MEDS: oxyCODONE HCL IR 5 MG TAB (IMMEDIATE RELEASE) PO STA (02:16)
[2024-08-29] MEDS: PHYTONADIONE 2.5 MG in DEXTROSE 5% 50 ML IV STA (02:18)
[2024-08-29] MEDS: PANTOprazole 80 MG in DEXTROSE 5% 100 ML IV STA (03:05)
[2024-08-29] MEDS: PANTOprazole 40 MG in DEXTROSE 5% MINI-B 100 ML IV SCH (03:50)
[2024-08-29] MEDS ORDERED: NITROGLYCERIN SL 0.4 MG/TAB TAB SL PRN (05:39)
[2024-08-29] MEDS ORDERED: GLUCAGON FOR INJ 1 MG VIAL SQ PRN (05:39)
[2024-08-29] MEDS ORDERED: GLUCOSE 40% GEL 15 GM TUBE PO PRN (05:39)
[2024-08-29] MEDS ORDERED: ALBUTEROL HFA 8 GM INHALER INH PRN (05:39)
[2024-08-29] MEDS ORDERED: CARBOHYDRATES FOR HYPOGLYCEMIA PO PRN (05:39)
[2024-08-29] MEDS ORDERED: DEXTROSE 50% 50 ML SYRINGE IV PRN (05:39)
[2024-08-29] MEDS ORDERED: GLUCOSE 10 TAB/TUBE PO PRN (05:39)
[2024-08-29 06:11] LABS: Basophils # (auto) 0.13 K/uL (0.00-0.20); Basophils % (auto) 0.8 %; Eosinophils # (auto) 0.33 K/uL (0.00-0.50); Eosinophils % (auto) 1.9 %; Hematocrit (blood only) 46.6 % (42.0-52.0); Immature Granulocytes # (auto) 0.08 K/uL (0.01-0.20); Immature Granulocytes % (auto) 0.5 %; Lymphocytes # (auto) 3.64 K/uL (1.20-3.40); Lymphocytes % (auto) 21.3 %; Mean Corpuscular Hemoglobin 24.1 pg (25.0-34.0); Mean Corpuscular Hgb Conc 32.2 g/dL (32.0-36.0); Mean Corpuscular Volume 74.9 fL (80.0-100.0); Mean Platelet Volume 10.2 fL (9.4-12.4); Monocytes # (auto) 1.21 K/uL (0.11-0.59); Monocytes % (auto) 7.1 %; Neutrophils # (auto) 11.71 K/uL (1.40-6.50); Neutrophils % (auto) 68.4 %; Platelet Count 274 K/uL (130-400); RDW Coefficient of Variation 20.4 % (11.5-14.5); RDW Standard Deviation 51.5 fL (36.4-46.3); Red Blood Count 6.22 M/uL (4.70-6.10)
[2024-08-29 06:25] LABS: BUN Creatinine Ratio 15.2 (10-20); Calcium 10.2 mg/dl (8.6-10.3); Creatinine Clr Calc Pharmacy 131.7 ml/min; Magnesium 1.7 mg/dl (1.7-2.4); Potassium 3.3 mmol/L (3.5-5.1)
[2024-08-29] MEDS: INSULIN ASPART PER UNIT CHARGE SC SCH ×2 (06:35→12:34)
[2024-08-29 06:39] LABS: Anisocytosis Present; Polychromasia 1+
[2024-08-29] MEDS: BUDESONIDE 0.5 MG/2 ML VIAL (PULMICORT) INH SCH (07:22)
[2024-08-29] MEDS: ALBUT/IPRATROP 3MG/0.5MG NEB 3 ML VIAL INH SCH (07:24)
[2024-08-29 07:34] LABS: Estimated Average Glucose 186 mg/dl; Hemoglobin A1C 8.1 % (4.5-5.6)
--- NOTE | 2024-08-29 07:59 | Electrocardiogram Report ---
Test Reason : Blood Pressure : */* mmHG Vent. Rate : 83 BPM Atrial Rate : 83 BPM P-R Int : 154 ms QRS Dur : 112 ms QT Int : 424 ms P-R-T Axes : -5 32 83 degrees QTcB Int : 498 ms Normal sinus rhythm Incomplete right bundle branch block Diffuse Nonspecific ST abnormality T-wave inversion in Anterolateral leads , consider ischemia Abnormal ECG When compared with ECG of 31-Jul-2024 15:59, T wave inversion now evident in Anterolateral leads QT has lengthened Confirmed by Da Browning ([id number]) on 08/29/2024 7:59:14 AM Referred By: Kehinde Mc Confirmed By: Da Browning
[2024-08-29] MEDS ORDERED: BILLION CELL PO SCH (09:00)
[2024-08-29] MEDS ORDERED: LACTOBACILLUS ACIDOPHILUS PO SCH (09:00)
[2024-08-29] MEDS: TORSEMIDE 100 MG TAB PO SCH (09:29)
[2024-08-29] MEDS: FLUTICASONE/VILANTEROL 100/25MCG 14 PUFFS/INHALER INH SCH (09:29)
[2024-08-29] MEDS: GABAPENTIN 600 MG TAB PO SCH (09:30)
[2024-08-29] MEDS: METOPROLOL SUCC 25MG EXT REL TAB PO SCH (09:30)
[2024-08-29] MEDS: buprenorphine HCL 8 MG SUBL SL SCH ×2 (09:30→15:14)
[2024-08-29] MEDS: DULoxetine HCL 60 MG CAP PO SCH (09:30)
[2024-08-29] MEDS: DOCUSATE SODIUM 100 MG CAP PO SCH (09:30)
[2024-08-29] MEDS: MAGNESIUM OXIDE 400 MG TAB PO SCH (09:30)
[2024-08-29] MEDS: TAMSULOSIN HCL 0.4 MG CAP PO SCH (09:30)
[2024-08-29] MEDS: FOLIC ACID 1 MG TAB PO SCH (09:31)
[2024-08-29] MEDS: FERROUS SULFATE 325 MG TAB PO SCH (09:31)
[2024-08-29] MEDS: SPIRONOLACTONE 25 MG TAB PO SCH (09:31)
[2024-08-29] MEDS: FAMOTIDINE 20 MG TAB PO SCH (09:31)
[2024-08-29] MEDS: POTASSIUM CHLORIDE CRTAB 20 MEQ TABCR PO SCH (09:31)
[2024-08-29] MEDS: FINASTERIDE 5 MG TAB PO SCH (09:31)
[2024-08-29] MEDS: UMECLIDINIUM BROMIDE 62.5MCG/BLISTER 7 PUFFS/INHALER INH SCH (09:32)
[2024-08-29] MEDS: ISOSORBIDE DINITRATE 20 MG TAB PO SCH (09:33)
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
[2024-08-29] MEDS ORDERED: Nursing to Pharmacy Communication SCH (11:15)
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
[2024-08-29 12:03] LABS: Hematocrit (blood only) 42.2 % (42.0-52.0); Hemoglobin 13.7 g/dl (14.0-18.0)
[2024-08-29] MEDS: oxyCODONE HCL IR 5 MG TAB (IMMEDIATE RELEASE) PO PRN (12:35)
[2024-08-29] MEDS: NICOTINE 14 MG/24 HR PATCH TD SCH (13:33)
--- NOTE | 2024-08-29 13:47 | Electrocardiogram Report ---
Test Reason : Blood Pressure : */* mmHG Vent. Rate : 91 BPM Atrial Rate : 91 BPM P-R Int : 156 ms QRS Dur : 106 ms QT Int : 392 ms P-R-T Axes : 34 28 80 degrees QTcB Int : 482 ms Normal sinus rhythm Incomplete right bundle branch block Diffuse Nonspecific ST abnormality Prolonged QT Abnormal ECG When compared with ECG of 28-Aug-2024 17:53, No significant change Confirmed by Da Browning ([id number]) on 08/29/2024 1:47:14 PM Referred By: Kehinde Mc Confirmed By: Da Browning
[2024-08-29 18:13] LABS: Hemoglobin 14.2 g/dl (14.0-18.0)
--- OUTSIDE RECORDS SUMMARY | 2024-08-29 18:31 | External Medical Summary ---
Author Name Unknown Address Unknown Organization [id number] [address] [place] [id number] Laboratory Report Ordering Provider Test Date Status ABADOMENICALIONEL 08/28/2024 07:58:00 Final Standing order for pt/inr. < br/>Please draw pt/inr every 1 to 4 weeks as requested
Results to [facility]

Warfarin Therapy
INR: 2.0-3.0 conventional anticoagulation
INR: 2.5-3.5 high intensity anticoagulation Observation Date Value Abnormality Reference (Units ) Status PT 08/28/2024 07:58:00 22.6 Above high normal 11 .6-15.2 (seconds) Final INR 08/28/2024 07:58:00 2.0 Above high normal 0. 8-1.2 Final Performing Location [facility] [address] [place] [id number]
--- OUTSIDE RECORDS SUMMARY | 2024-08-29 18:31 | External Medical Summary ---
Author Name Unknown Address Unknown Organization [id number] [place] [address] Laboratory Report Ordering Provider Test Date Status INGRIS BISHOP 08/28/2024 07:58:00 Final Observation Date Value Abnormality Reference (Units ) Status BUN 08/28/2024 07:58:00 16 6-20 (mg/dL) Final Creatinine 08/28/2024 07:58:00 1.2 0.6-1.2 (mg/dL) Final Glomerular filtration rate/1.73 sq M.predicted [Volume Rate/Area] in Serum, Plasma or Blood by Creatinine-based formula (CKD-EPI) 08/28/2024 07:58:00 75 >=60 (mL/min) Final eGFR is calculated based on the CKD-EPI 2020 equation. Sodium 08/28/2024 07:58:00 141 135-146 (m mol/L) Final Potassium 08/28/2024 07:58:00 3.4 Below low normal 3.5 -5.1 (mmol/L) Final Cl 08/28/2024 07:58:00 93 Below low normal 98- 107 (mmol/L) Final CO2 08/28/2024 07:58:00 39 Above high normal 22 -32 (mmol/L) Final Anion gap 08/28/2024 07:58:00 9 7-15 (mmol /L) Final Glucose 08/28/2024 07:58:00 145 Above high normal 70 -120 (mg/dL) Final Calcium 08/28/2024 07:58:00 10.1 8.4-10.2 ( mg/dL) Final Performing Location LABORATORY [facility] [address] [place] [id number]
--- OUTSIDE RECORDS SUMMARY | 2024-08-29 18:31 | External Medical Summary ---
Author Name Unknown Address Unknown Organization K0G:LABORATORY [facility] [address] [place] [id number] Laboratory Report Ordering Provider Test Date Status INGRIS BISHOP 08/28/2024 07:58:00 Final Observation Date Value Abnormality Reference (Units ) Status WBC, Total 08/28/2024 07:58:00 14.44 Above high normal 4 .00-10.80 (K/uL) Final RBC 08/28/2024 07:58:00 6.02 4.50-5.25 (M/uL) Final Hemoglobin 08/28/2024 07:58:00 14.7 14.0-16.8 (g/dL) Final HCT 08/28/2024 07:58:00 46.0 40.0-48.4 (%) Final MCV 08/28/2024 07:58:00 76.4 82.0-99.5 (fL) Final MCH 08/28/2024 07:58:00 24.4 27.0-34.0 (pg) Final MCHC 08/28/2024 07:58:00 32.0 32.0-36.0 (g/dL) Final RDW 08/28/2024 07:58:00 21.3 11.5-15.5 (%) Final Platelets 08/28/2024 07:58:00 254 140-400 (K /uL) Final MPV 08/28/2024 07:58:00 10.6 6.6-11.1 ( fL) Final Performing Location LAB[facility]ATORY [facility] [place] [address] [place] [id number]
--- OUTSIDE RECORDS SUMMARY | 2024-08-29 18:31 | External Medical Summary | Summary of Care ---
Author Name Unknown Organization [facility] Address [address] [place] [address] Phone [phone] Care Team Providers Care Derrick Boat Operator Name Role Phone Kehinde Mc MD Primary Care Provider [phone] Reason for Visit * Reason Onset Date Comments Advice 08/15/2024 Encounter Details Date Type Department Care Team (Late st Contact Info) Description 08/15/2024 Telephone [facility] [address] [place] [address] Kehinde Mc MD [address] [place] [address] Advice Allergies Active Allergy Reactions [...] as of this encounter (statuses as of 08/28/2024) Medications polyethylene glycol 3350 (MIRALAX) 255 gram [...] before bedtime. 04/19/20 22 Active nystatin (NYSTOP) 492379 UNIT/GM powderIndications:C utaneous candidiasis Apply topically to affected area 3 times a day. 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 25 Tab 5 06/05/20 20 Active Additional Information Patient not taking.Reported on 03/28/2024 Buprenorphine HCl 8 MG Sublingual Tablet Sublingual [...] :COPD, group C, by GOLD 2017 classification ([facility]),COPD, group D, by GOLD 2017 classification ([facility]) USE 2 PUFFS BY MOUTH EVERY 4 HOURS NEEDED SHORT OF BREATH 6.7 g 5 11/25/19 Active Magnesium Oxide 400 (241.3 Mg) MG Oral TabletIndications:C oronary artery disease involving shawnee coronary artery of [...] Puff before bedtime. 1 Each 2 08/10/20 Active Senna 8.6 MG Oral CapsuleIndications: Constipation, unspecified constipation type Take 8.6 mg by mouth daily as needed for Constipation. 30 Capsule 09/29/19 23 Active Spironolactone 25 MG Oral Tablet (Aldactone) Take 1 Tablet by mouth in the morning. In the morning.. 90 Tablet 2 12/11/19 23 Active Budesonide 0.25 MG/2ML Inhalation Suspension [...] hemoglobin A1c goal of less than 8.0% ([facility]) Use 3 times daily as directed 1 Kit 08/31/20 23 Active True Metrix Blood Glucose Test In Vitro Strip (Glucose Blood)Indications:T ype 2 diabetes mellitus with hemoglobin A1c goal of less than 8.0% (HCC) Use 3 times daily as directed 300 Strip 3 08/31/20 23 Active TRUEplus Lancets 33GIndications:Type 2 diabetes mellitus with hemoglobin A1c goal of less than 8.0% ([facility]) Use 3 times daily [...] CLINIC. 180 Tablet 1 11/10/19 24 Active Bisacodyl 5 MG Oral Tablet Delayed Release (Dulcolax)Indicatio ns:Chronic constipation Take 2 Tablets by mouth daily as needed for Constipation. do not use for over 1 week. Do not cut, crush or chew 12/31/19 24 Active Isosorbide Dinitrate 30 MG Oral TabletIndications:C oronary artery disease involving shawnee coronary artery of [...] AFTERNOON 90 Tablet 3 05/16/20 24 Active Cyclobenzaprine HCl 10 MG Oral Tablet (Flexeril)Indicatio ns:Chronic pain syndrome TAKE 1 TABLET TWICE DAILY NEEDED FOR MUSCLE SPASM(S) 60 Tablet 5 05/30/20 24 Active FreeStyle Js 3 [place] DeviceIndications:T ype 2 diabetes mellitus with hemoglobin A1c goal of less than 8.0% ([facility]) Use as directed. 1 Each 1 05/30/20 24 Active FreeStyle Js 3 Sensor Use as directed every 14 days. 6 Each 3 05/30/20 24 Active DULoxetine HCl 60 MG Oral Capsule Delayed Release Particles (Cymbalta)Indicatio ns:Chronic bilateral low back pain without sciatica,DM type 2 with diabetic peripheral neuropathy (HCC) Take 1 Capsule by mouth in the morning. 90 Capsule 1 05/30/20 24 Active Gabapentin 600 MG Oral Tablet (Neurontin) Take 1 Tablet by mouth in the morning and 1 Tablet at noon and 1 Tablet before bedtime. 270 Tablet 1 05/30/20 24 Active Metoprolol Succinate ER 50 MG Oral Tablet Extended Release 24 Hour (toPROL XL)Indications:Freddie nary artery disease involving shawnee coronary artery of shawnee heart without angina pectoris TAKE 1 & 1/2 TABLETS by mouth 2 TIMES A DAY 90 Tablet 5 06/26/20 24 Active Famotidine 20 MG Oral Tablet (Pepcid)Indications :Gastroesophageal reflux disease without esophagitis Take 1 Tablet by mouth at bedtime. 30 Tablet 5 06/26/20 24 Active Furosemide 40 MG Oral Tablet (Lasix) Take 1 Tablet by mouth 2 times a day. 60 Tablet 5 06/26/20 24 Active Finasteride 5 MG Oral [...] DAY 30 Capsule 5 07/25/20 24 Active Folic Acid 1 MG Oral Tablet Take 1 Tablet by mouth in the morning. 90 Tablet 2 08/10/20 24 Active Ferrous Sulfate 325 (65 Fe) MG Oral Tablet (Feosol)Indications :Iron deficiency anemia due to chronic blood loss Take 1 Tablet by mouth daily with breakfast. 90 Tablet 1 08/10/20 24 Active Semaglutide(0.25 or 0.5MG/DOS) 2 MG/3ML Solution Pen-injector (Ozempic)Indication s:DM type 2 with diabetic peripheral neuropathy (HCC),Diabetes mellitus with nephropathy (HCC) Inject 0.25 mg under the skin once a week for 14 days, THEN 0.5 mg once a week. 9.75 mL 08/10/20 24 025 Active oxyCODONE HCl 10 MG Oral Tablet (Roxicodone)Indicat ions:Chronic pain of right knee Take 1 Tablet by mouth 2 times a day as needed for Pain, Moderate or Pain, Severe. 30 Tablet 08/10/20 24 Active Potassium Chloride Terra ER 20 MEQ Oral Tablet Extended ReleaseIndications: Hypokalemia Take 1 Tablet by mouth in the morning and 1 Tablet at noon and 1 Tablet before bedtime. TAKE ONE TABLET EVERY MORNING AND AT BEDTIME. 270 Tablet 3 08/14/20 24 Active Dextromethorphan-gu aiFENesin 10-100 MG/5ML Oral Liquid (Robitussin DM) Take 5 mL by mouth every 6 hours as needed for Cough. 120 mL 5 08/14/20 24 Active Incruse Ellipta 62.5 MCG/ACT Inhalation Aerosol Powder Breath Activated (umeclidinium [place]) Inhale 1 Puff by mouth in the morning. 30 Each 11 08/21/20 24 Active Azithromycin 250 MG Oral Tablet (Zithromax Z-Hector) Take two tablets by mouth on first day, then 1 tablet daily until gone 6 Tablet 08/21/20 24 Active Ondansetron HCl 4 MG Oral Tablet (Zofran)Indications :Nausea TAKE 1 TABLET BY MOUTH EVERY 8 HOURS NEEDED NAUSEA 20 Tablet 1 08/28/20 24 Active Ondansetron HCl 4 MG Oral Tablet (Zofran)Indications :Nausea TAKE 1 TABLET BY MOUTH EVERY 8 HOURS NEEDED NAUSEA 20 Tablet 1 05/30/20 24 024 Discontin ued(Refil l) Azithromycin 250 MG Oral Tablet (Zithromax Z-Hector) Take two tablets by mouth on first day, then 1 tablet daily until gone 6 Tablet 08/10/20 24 024 Discontin ued(Refil l) documented as of this encounter (statuses as of 08/28/2024) Active Problems Problem Noted Date Diagnosed Date [...] as of this encounter (statuses as of 08/28/2024) Resolved Problems Problem Noted Date Diagnosed Date [...] of kidney 08/20/2015 8 Overview (08/21/2015): right, [place] Vitamin D deficiency 01/31/2015 018 Body [...] inactive term Person feigning illness 04/08/2006 1211/2011 Overview (05/31/2009): ER visit Person feigning illness [...] as of this encounter (statuses as of 08/28/2024) Immunizations Name Administration Dates Next Due COVID-19 [...] of Assessment Author No 03/28/2024 9:07 PM EDT Janice Tanner RN * Are you blind or do you have serious difficulty seeing, even when wearing glasses? Answer Date of Assessment Author No 03/28/2024 9:07 PM EDT Janice Tanner RN * Do you have serious difficulty walking or climbing stairs? (5 years old or older) Answer Date of Assessment Author Yes 03/28/2024 9:07 PM EDT Janice Tanner RN * Do you have difficulty dressing or bathing? (5 years old or older) Answer Date of Assessment Author Yes 03/28/2024 9:07 PM EDT Janice Tanner RN * Because of a physical, mental, or emotional condition, do you have difficulty doing errands alone such as visiting a doctors office or shopping? (15 years old or older) Answer Date of Assessment Author Yes 03/28/2024 9:07 PM EMYT Janice Tanner RN documented as of this encounter Mental Status * Because of a physical, mental, or emotional condition, do you have serious difficulty concentrating, remembering, or making decisions? (5 years old or older) Answer Entry Date Author No 03/28/2024 9:07 PM EMYT Janice Tanner RN documented in this encounter Miscellaneous Notes * Addendum Note - Kehinde Mc MD - 08/28/2024 12:05 PM ESTAddended by: KEHINDE MC on: 08/28/2024 12:05 PM Modules accepted: Orders * Telephone Encounter - Kehinde Mc MD - 08/28/2024 12:04 PM EST Ordered zofran But lab is still pending If general sx is getting worse, please go to ER ruel * Telephone Encounter - Yeni Antonio LPN - 08/28/2024 10:10 AM EST Patient is aware and verbalizes understanding of the message from Dr. Mc. He stated that he is not feeling well at all and thinks he needs to go to the ER. He stated that hehas slept the last 3 days, his was not able to get him up. He has not been able to keep anything down either. He stated that he started with some confusion this morning. He also stated that he has been burping which smells like sulfur. He stated that the last time he felt like this he has a sto mach ulcer. Discussed that with his lack of fluid PO intake that he possibly is dehydrated and should have an evaluation. He agreed and stated that he will go to the ER and wanted to let Kehinde Mc MD aware. Patient stated that mobile lab was at his house earlier and patrick his labs. He is asking if PCP would prescribed Zofran due. Please advise * Telephone Encounter - Lisa Poe LPN - 08/23/2024 12:08 PM EST Attempted to call patient, there was no answer, left voicemail. When patient returns call, ok for DARIA to relay message, please refer to below documentation. If needed, can transfer to dedicated nurse line. * Telephone Encounter - Kehinde Mc MD - 08/21/2024 8:07 AM EST Will do 2nd round zpak again Since he has several allergies And also adding 2nd inhaler , called incruse 1 puff daily for his COPD Take with advair too And please no smoking * Telephone Encounter - Zohreh Rome LPN - 08/15/2024 3:12 PM EST HH Concerns Tracey RN, Calling from: [facility] [employer] Report/Concerns of: URI wheezing Symptoms: see narrative Vitals: T98.6 P87 RR18 BP 125/78 SP O2 94% RA Lung sounds wheezing Narrative: pt was prescribed z-hector last week for URI. His sx continue, he still has has wheezing. He is using his neb tx and inhalers. Tracey inquiring if additional meds should be prescribed? Call back Stanton with any advice or orders at [phone] * Telephone Encounter - Coco Escoto OSA - 08/15/2024 3:10 PM EST Reason for patient's call: Tracey bay RN from [facility] Caller was transferred to Zohreh at the nurse line. documented in this encounter Plan of Treatment Upcoming Encounters Date Type Department Care Team (Late st Contact Info) Description 08/29/2024 6:00 AM EST Anticoagulation Centralized Clinical Pharm[facility] Services, [facility] [address] [place] [address] [place] [address] [facility], [address] [place] [address] Health Maintenance Due Date Last Done Comments DISCUSS TOBACCO CESSATION (REFER TO SMARTSET #3134) 1970 HIV Screening 1985 Pneumococcal Vaccine: Pediatrics [...] Vaccine (FLU shot) (#1) 2024 08/26/2013 HbA1c 02/11/2025 08/14/2024, 04/21, 03/27/2024, Additional history exists Diabetic Foot Exam 03/28/2025 03/28/2024, 0 12/14/2019, 09/02/2015, Additional history exists O2 ASSESSMENT COMPLETED IN PAST YEAR FOR COPD 04/04/2025 04/04/2024 Albumin/Creatinine Ratio 05/29/2025 05/29/2024, 03/21 GFR 08/14/2025 08/14/2024, 2 02/2024, 04/04/2024, Additional history exists DTap/Tdap Vaccines (4 - Td or Tdap) 06/08/2029 06/08/2019, 07/19/2017, 04/03/2014 Alpha-1 Antitrypsin Completed 12/16/2021 HPV (Gardasil) Vaccine Aged Out No lo nger eligible based on patient's age to complete this topic MENINGOCOCCAL (MENACTRA/MENVEO) Aged Out No longer eligible based on patient's age to complete this topic documented as of this encounter Medical Devices Implanted Type Area Tool And Gauge Inspector Device Identifier Shelf Expiration Date Model / Serial / Lot Tube Flex 3.0x2.5 [id number] - [id number] Implanted:Qty: 1 on 12/07/2014 by Juancarlos Trinidad MD at [facility] Left: Finger LANDON : ORTHOPAEDICS 11/18/2015 [id number] / / [id number] documented as of this encounter Visit Diagnoses Diagnosis Nausea Nausea alone documented in this encounter Advance Directives * [...] (no specific identity) Health Care Power of Industrial Gas Production Operator Care Teams Derrick Boat Operator Relationship Specialty Start Date End Date Kehinde Mc MD [address] [place] [address] PCP - General Internal Medicine 03/28/24 documented as of this encounter
--- OUTSIDE RECORDS SUMMARY | 2024-08-29 18:31 | External Medical Summary | Summary of Care ---
Author Name Unknown Organization [facility] Address [address] [place] [address] Phone [phone] Care Team Providers Care Drier Helper Name Role Phone Kehinde Mc MD Primary Care Provider [phone] Reason for Visit * Reason Onset Date Comments Advice 08/15/2024 Encounter Details Date Type Department Care Team (Late st Contact Info) Description 08/15/2024 Telephone [facility] [address] [facility] [place] [address] Kehinde Mc MD [address] [place] [address] Advice Allergies Active Allergy Reactions [...] before bedtime. 04/19/20 22 Active nystatin (NYSTOP) 000984 UNIT/GM powderIndications:C utaneous candidiasis Apply topically to affected area 3 times a day. 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 1 Each 1 05/30/20 24 Active FreeStyle Js 3 Sensor Use as directed every 14 days. 6 Each 3 05/30/20 24 Active Ondansetron HCl 4 MG Oral Tablet (Zofran)Indications :Nausea TAKE 1 TABLET BY MOUTH EVERY 8 HOURS NEEDED NAUSEA 20 Tablet 1 05/30/20 24 Active DULoxetine HCl 60 MG [...] MCG/ACT Inhalation Aerosol Powder Breath Activated (umeclidinium [place]) Inhale 1 Puff by mouth in the morning. 30 Each 11 08/21/20 24 Active Azithromycin 250 MG Oral Tablet (Zithromax Z-Hector) Take two tablets by mouth on first day, then 1 tablet daily until gone 6 Tablet 08/21/20 24 Active Azithromycin 250 MG Oral [...] of kidney 08/20/2015 8 Overview (08/21/2015): right, [place] CT Vitamin D deficiency 01/31/2015 018 Body [...] of Assessment Author Yes 03/28/2024 9:07 PM MEYT Janice Tanner RN * Do you have difficulty dressing or bathing? (5 years old or older) Answer Date of Assessment Author Yes 03/28/2024 9:07 PM EDJanice Buckley RN * Because of a physical, mental, [...] Entry Date Author No 03/28/2024 9:07 PM Janice Henry RN documented in this encounter Miscellaneous Notes * Telephone Encounter - Yeni Antonio, DEEPIKA - 08/28/2024 10:10 AM EST Patient is [...] EST HH Concerns Tracey RN, Calling from: [employer] Report/Concerns of: URI wheezing Symptoms: see narrative Vitals: T98.6 P87 RR18 BP 125/78 SP O2 94% RA Lung sounds wheezing Narrative: pt was prescribed z-hector last week for URI. His sx continue, he still has has wheezing. He is using his neb tx and inhalers. Tracey inquiring if additional meds should be prescribed? Call back Stanton with any advice or orders at [phone] * Telephone Encounter - Coco Escoto, DARIA - 08/15/2024 3:10 PM EST Reason for patient's call: Tracey bay [facility] from [facility] Caller was transferred to [place] at the nurse line. documented in this encounter Plan of Treatment Upcoming Encounters Date Type Department Care Team (Late st Contact Info) Description 08/29/2024 6:00 AM EST Anticoagulation Centralized Clinical Pharmacy Services, [facility] [address] [place] [address] [place] [address] [place] [address] Health Maintenance Due Date Last Done Comments DISCUSS TOBACCO CESSATION (REFER TO SMARTSET #9349) 1970 HIV Screening 1985 Pneumococcal Vaccine: Pediatrics [...] shot) (#1) 2024 08/26/2013 HbA1c 02/11/2025 08/14/2024, 08/2 02/2024, 03/27/2024, Additional history exists Diabetic Foot Exam 03/28/2025 03/28/2024, 0 12/14/2019, 09/02/2015, Additional history exists O2 ASSESSMENT COMPLETED IN PAST YEAR FOR COPD 04/04/2025 04/04/2024 Albumin/Creatinine Ratio 05/29/2025 05/29/2024, 03/21 GFR 08/14/2025 08/14/2024, 04/21, 04/04/2024, Additional history exists DTap/Tdap Vaccines (4 - Td or Tdap) 06/08/2029 06/08/2019, 07/19/2017, 04/03/2014 Alpha-1 Antitrypsin Completed 12/16/2021 HPV (Gardasil) Vaccine Aged Out No lo nger eligible based on patient's age to complete this topic MENINGOCOCCAL (MENACTRA/MENVEO) Aged Out No longer eligible based on patient's age to complete this topic documented as of this encounter Medical Devices Implanted Type Area Transitional Living Specialist Device Identifier Shelf Expiration Date Model / Serial / Lot Tube Flex 3.0x2.5 [id number] - [id number] Implanted:Qty: 1 on 12/07/2014 by Juancarlos Trinidad MD at [facility] Left: Finger [employer] : ORTHOPAEDICS 11/18/2015 [id number] / / [id number] documented as of this encounter Advance Directives [...] (no specific identity) Health Care Power of Automatic Door Mechanic Care Teams Drier Helper Relationship Specialty Start Date End Date Kehinde Mc MD [address] [place] [address] PCP - General Internal Medicine 03/28/24 documented as of this encounter
--- OUTSIDE RECORDS SUMMARY | 2024-08-29 18:31 | External Medical Summary | Summary of Care ---
Author Name Unknown Organization [facility] Address [address] [place] [address] Phone [phone] Care Team Providers Care Validation Technician Name Role Phone Kehinde Mc MD Primary Care Provider [phone] Reason for Visit * Reason Onset Date Comments Fax 08/25/2024 [facility] Encounter Details Date Type Department Care Team ([facility] st Contact Info) Description 08/25/2024 Telephone [facility] [address] [place] [address] Kehinde Mc MD [address] [place], [place] [phone] Fax ([facility]) Allergies Active Allergy Reactions [...] as of this encounter (statuses as of 08/25/2024) Medications polyethylene glycol 3350 (MIRALAX) 255 gram [...] before bedtime. 04/19/20 22 Active nystatin (NYSTOP) 373590 UNIT/GM powderIndications:C utaneous candidiasis Apply topically to affected area 3 times a day. 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 ([facility]) Place 1 Tab under the tongue every [...] HEALTH),COPD, group D, by GOLD 2017 classification (HCC) USE 2 PUFFS BY MOUTH EVERY 4 HOURS NEEDED SHORT OF BREATH 6.7 g 5 11/25/19 22 Active Magnesium Oxide 400 (241.3 Mg) MG Oral TabletIndications:C oronary artery disease involving [place] coronary [...] MG Oral TabletIndications:C oronary artery disease involving [place] coronary artery of [place] heart without angina pectoris TAKE 1 TABLET [...] 5 05/30/20 24 Active FreeStyle Js 3 [place] DeviceIndications:T ype 2 diabetes mellitus with hemoglobin A1c goal of less than 8.0% ([facility]) Use as directed. 1 Each 1 05/30/20 [...] Hour (toPROL XL)Indications:Freddie nary artery disease involving [place] coronary [...] MCG/ACT Inhalation Aerosol Powder Breath Activated (umeclidinium [place]) Inhale 1 Puff by mouth in the morning. 30 Each 11 08/21/20 24 Active Azithromycin 250 MG Oral Tablet (Zithromax Z-Hector) Take two tablets by mouth on first day, then 1 tablet daily until gone 6 Tablet 08/21/20 24 Active documented as of this encounter (statuses as of 08/25/2024) Active Problems Problem Noted Date Diagnosed Date [...] hemorrhage 10/04/2020 Coronary artery disease invo lving [place] heart without angina pectoris [...] as of this encounter (statuses as of 08/25/2024) Resolved Problems Problem Noted Date Diagnosed Date [...] of kidney 08/20/2015 8 Overview (08/21/2015): right, [place] CT Vitamin D deficiency 01/31/2015 018 Body [...] as of this encounter (statuses as of 08/25/2024) Immunizations Name Administration Dates Next Due COVID-19 mRNA, LNP-s, No Pre serve, 2-Dose Series ([place]) 01/02/2021,12/05/2020 DTP Vaccine 07/19/2017,04/03/2014 Hepatitis B, 20+ [...] Janice Henry RN * Do you have serious difficulty walking or climbing stairs? (5 years old or older) Answer Date of Assessment Author Yes 03/28/2024 9:07 PM Janice Henry RN * Do you have difficulty dressing or bathing? (5 years old or older) Answer Date of Assessment Author Yes 03/28/2024 9:07 PM Janice Henry RN * Because of a physical, mental, [...] Telephone Encounter - Gina Clifford LPN - 08/25/2024 12:52 PM EST Received Fax for BFPROVIDERS: Dr. Kehinde Mc ORDER received from [facility] and FAXED documented in this encounter Plan of Treatment Upcoming Encounters Date Type Department Care Team (Late st Contact Info) Description 08/28/2024 7:00 AM EST Laboratory Lab [facility] [address] [place] [address] [address] [facility], Gml Mobile Home Draw [address] [place] [address] [address] 08/29/2024 6:00 AM EST Anticoagulation Centralized Clinical Pharmacy Services, Ciera Griffin [address] [place] [address] [place] [address] [place] [address] Health Maintenance Due Date Last Done Comments DISCUSS TOBACCO CESSATION (REFER TO SMARTSET #7938) 1970 HIV Screening 1985 Pneumococcal Vaccine: Pediatrics [...] this encounter Medical Devices Implanted Type Area Coke Worker Device Identifier Shelf Expiration Date Model / Serial / Lot Tube Flex 3.0x2.5 [id number] - [id number] Implanted:Qty: 1 on 12/07/2014 by Juancarlos Trinidad MD at [facility] Left: Finger [employer]ANDON : ORTHOPAEDICS 11/18/2015 [id number] / / [id number] documented as of this encounter Advance Directives [...] (no specific identity) Health Care Power of Historiographer Care Teams Validation Technician Relationship Specialty Start Date End Date Kehinde Mc MD [address] [place] [address] [place] [id number] PCP - General Internal Medicine 03/28/24 documented as of this encounter
--- OUTSIDE RECORDS SUMMARY | 2024-08-29 18:31 | External Medical Summary ---
Author Name Unknown Address Unknown Organization [id number]:[facility] [address] [place] [id number] Laboratory Report Ordering Provider Test Date Status INGRIS BISHOP 08/28/2024 07:58:00 Final Observation Date Value Abnormality Reference (Units ) Status SYNC LEUKOCYTES IN BLOOD BY AUTOMATED COUNT 08/28/2024 07:58:00 14.44 Above high normal 4.00-10.80 (K/uL) Final Segs 08/28/2024 07:58:00 67.3 40.0-75.0 (%) Final Lymphs % 08/28/2024 07:58:00 22.6 18.0-42.0 (%) Final Monos 08/28/2024 07:58:00 8.1 1.0-11.0 (%) Final Eosinophils 08/28/2024 07:58:00 1.7 0.0-6.0 (%) Final Basos 08/28/2024 07:58:00 0.3 0.0-2.0 (%) Final Absolute Segs 08/28/2024 07:58:00 9.71 Above high normal 1.80-7.70 (K/uL) Final Lymphs, absolute 08/28/2024 07:58:00 3.26 1.00-4.80 (K/ul) Final Monos, Abs 08/28/2024 07:58:00 1.17 Above high normal 0.00-1.10 (K/uL) Final Eos, Abs 08/28/2024 07:58:00 0.25 0.00-0.70 (K/uL) Final Basos, Abs 08/28/2024 07:58:00 0.05 0.00-0.20 (K/uL) Final Performing Location [facility] [address] [place] [id number]
--- OUTSIDE RECORDS SUMMARY | 2024-08-29 18:32 | External Medical Summary | Summary of Care ---
Author Name Unknown Organization [facility] Address [address] [place] [address] Phone [phone] Care Team Providers Care Work Environment Safety Inspector Name Role Phone Kehinde Mc MD Primary Care Provider [phone] Reason for Visit * Reason Onset Date Comments Advice 08/15/2024 Encounter Details Date Type Department Care Team (Late st Contact Info) Description 08/15/[address] [facility] [address] [facility] [place] [address] Kehinde Mc MD [address] [place] [address] Advice Allergies Active Allergy Reactions [...] as of this encounter (statuses as of 08/23/2024) Medications polyethylene glycol 3350 (MIRALAX) 255 gram [...] before bedtime. 04/19/20 22 Active nystatin (NYSTOP) 730685 UNIT/GM powderIndications:C utaneous candidiasis Apply topically to affected area 3 times a day. 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 ([facility]) Place 1 Tab under the tongue every [...] MG Oral TabletIndications:C oronary artery disease involving [place] coronary artery of [place] heart without angina pectoris Take by [...] [facility]) Use 3 times daily as directed 1 [...] MG Oral TabletIndications:C oronary artery disease involving [place] coronary artery of [place] heart without angina pectoris TAKE 1 TABLET [...] 5 05/30/20 24 Active FreeStyle Js 3 [place] DeviceIndications:T ype 2 diabetes mellitus with hemoglobin A1c goal of less than 8.0% ([facility]) Use as directed. 1 Each 1 05/30/20 [...] Hour (toPROL XL)Indications:Freddie nary artery disease involving [place] coronary artery of [place] heart without angina pectoris TAKE 1 [...] MCG/ACT Inhalation Aerosol Powder Breath Activated (umeclidinium [place]) Inhale 1 Puff by mouth in the [...] as of this encounter (statuses as of 08/23/2024) Active Problems Problem Noted Date Diagnosed Date [...] 10/04/2020 Coronary artery disease invo lving [place] heart without angina pectoris 10/04/2020 COPD, [...] as of this encounter (statuses as of 08/23/2024) Resolved Problems Problem Noted Date Diagnosed Date [...] of kidney 08/20/2015 8 Overview (08/21/2015): right, [place] CT Vitamin D deficiency 01/31/2015 018 Body [...] as of this encounter (statuses as of 08/23/2024) Immunizations Name Administration Dates Next Due COVID-19 [...] 9:07 PM EDT Janice Tanner RN documented as of this encounter Mental Status * Because of a physical, mental, or emotional condition, do you have serious difficulty concentrating, remembering, or making decisions? (5 years old or older) Answer Entry Date Author No 03/28/2024 9:07 PM EDT Janice Tanner RN documented in this encounter Miscellaneous Notes * Telephone Encounter - Lisa Poe LPN [...] EST HH Concerns Tracey RN, Calling from: [facility]/Concerns of: URI wheezing Symptoms: see narrative Vitals: T98.6 P87 RR18 BP 125/78 SP O2 94% RA Lung sounds wheezing Narrative: pt was prescribed z-hector last week for URI. His sx continue, he still has has wheezing. He is using his neb tx and inhalers. Tracey inquiring if additional meds should be prescribed? Call back Stanton with any advice or orders at [phone] * Telephone Encounter - Coco Escoto OSA - 08/15/2024 3:10 PM EST Reason for patient's call: Tracey bay RN from [facility] Caller was transferred to Zohreh at the nurse line. documented in this encounter Plan of Treatment Upcoming Encounters Date Type Department Care Team (Late st Contact Info) Description 08/23/2024 2:20 PM EST Telemedicine Pulmonary Medicine, [facility] [address] [facility] [place] [address] Arthur Jansen MD [facility] [address] [facility] [place] [address] 08/28/2024 7:00 AM EST Laboratory Lab [facility] [address] [facility] [place] [address] [facility], Gml Mobile Home Draw [address] [place] [address] 08/29/2024 6:00 AM EST Anticoagulation Centralized Clinical Pharmacy Services, Ciera Griffin [address] [place] [address] [place] [address] [place] [address] Health Maintenance Due Date Last Done Comments DISCUSS TOBACCO CESSATION (REFER TO SMARTSET #7435) 1970 HIV Screening 1985 Pneumococcal Vaccine: Pediatrics [...] this encounter Medical Devices Implanted Type Area Dye Expert Device Identifier Shelf Expiration Date Model / Serial / Lot Tube Flex 3.0x2.5 [id number] - [id number] Implanted:Qty: 1 on 12/07/2014 by Juancarlos Trinidad MD at [facility] Left: Finger [employer] : ORTHOPAEDICS 11/18/2015 [id number] / / [id number] documented as of this encounter Advance Directives [...] (no specific identity) Health Care Power of Clerk General Office Care Teams Work Environment Safety Inspector Relationship Specialty Start Date End Date Kehinde Mc MD [address] [place] [address] PCP - General Internal Medicine 03/28/24 documented as of this encounter
--- OUTSIDE RECORDS SUMMARY | 2024-08-29 18:32 | External Medical Summary | Summary of Care ---
Author Name Unknown Organization [facility] Address [address] [place] [address] Phone [phone] Care Team Providers Care Or Nurse Manager Name Role Phone Kehinde Mc MD Primary Care Provider [phone] Reason for Visit * Reason Comments Dosage Adjustment Via Phone (anticoag Cl inic) Encounter Details Date Type Department Care Team ([facility] Contact Info) Description 08/15/2024 6:00 AM EST Anticoagulation Centralized Clinical Pharmacy Services, Ciera Griffin [address] [place] [address] [place] [address] [place] [address] History of pulmonary embolism* Allergies Active Allergy [...] as of this encounter (statuses as of 08/15/2024) Medications polyethylene glycol 3350 (MIRALAX) 255 gram [...] before bedtime. 04/19/20 22 Active nystatin (NYSTOP) 407739 UNIT/GM powderIndications:C utaneous candidiasis Apply topically to affected area 3 times a day. 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 1 Each [...] Hour (toPROL XL)Indications:Freddie nary artery disease involving [place] coronary artery of [place] heart without angina pectoris TAKE 1 & [...] Pain, Severe. 30 Tablet 08/10/20 24 Active Azithromycin 250 MG Oral Tablet (Zithromax Z-Hector) Take two tablets by mouth on first day, then 1 tablet daily until gone 6 Tablet 08/10/20 24 Active Potassium Chloride Terra [...] Cough. 120 mL 5 08/14/20 24 Active documented as of this encounter (statuses as of 08/15/2024) Active Problems Problem Noted Date Diagnosed Date [...] hemorrhage 10/04/2020 Coronary artery disease invo lving [place] heart without angina pectoris 10/04/2020 COPD, group [...] as of this encounter (statuses as of 08/15/2024) Resolved Problems Problem Noted Date Diagnosed Date [...] of kidney 08/20/2015 8 Overview (08/21/2015): right, [place] CT Vitamin D deficiency 01/31/2015 018 Body [...] of inactive term Person feigning illness 04/08/2006 12/0 11/2011 Overview (05/31/2009): ER visit Person feigning illness [...] as of this encounter (statuses as of 08/15/2024) Immunizations Name Administration Dates Next Due COVID-19 mRNA, LNP-s, No Pre serve, 2-Dose Series (Ardelyx) 01/02/2021,12/05/2020 DTP Vaccine 07/19/2017,04/03/2014 Hepatitis B, 20+ [...] Author No 03/28/2024 9:07 PM EDT Janice Tanner, ALEXANDER * Are you blind or do you have serious difficulty seeing, even when wearing glasses? Answer Date of Assessment Author No 03/28/2024 9:07 PM EDT Janice Tanner RN * Do you have serious difficulty walking or climbing stairs? (5 years old or older) Answer Date of Assessment Author Yes 03/28/2024 9:07 PM EDJanice Buckley RN * Do you have difficulty dressing [...] Janice Henry RN documented in this encounter Progress Notes * Vanesa Pittman PHARM Tech - 08/15/2024 9:26 AM EST Contacts Contact Date/Time Type Contact Phone/Fax 08/15/2024 09:24 AM EST Phone (Outgoing) Stanton Milner (Self) [phone] (H) Spoke to Patient Subjective Patient Findings [...] communicated as noted by Pharmacist: Yes ARTEM Bone 08/15/2024, 9:26 AM * Keren Sanchez RP - 08/15/2024 8:54 AM EST Coumadin Clinic (region specific) Objective Current Warfarin Dose As of 08/15/2024 Warfarin maintenance plan: 2.5 mg (5 mg x 0.5) every Tue, Micki, Sat; 5 mg (5 mg x 1) all other days INR Result As of 08/15/2024 INR goal: 2.0-3.0 INR used for dosin.0 (08/14/2024) Assessment & Plan Warfarin Plan As of 08/15/2024 Full warfarin instructions: 2.5 mg every Tue, Micki, Sat; 5 mg all other days No change documented: Keren Sanchez RPh Next INR check: 08/28/2024 Repeat PT/INR in 2 week(s) Weekly dose: not changed Additional Dosing Information: Description GML([facility]) - pt prefers Tues GML at this time Tech to contact patient with dose instructions as noted. Keren Sanchez RPh 08/15/2024, 8:55 AM documented in this encounter Plan of Treatment Health Maintenance Due Date Last Done Comments DISCUSS TOBACCO CESSATION (REFER TO SMARTSET #4568) 1970 HIV Screening 1985 Pneumococcal Vaccine: Pediatrics [...] encounter Medical Devices Implanted Type Area Clinical Resource Coordinator Device Identifier Shelf Expiration Date Model / Serial / Lot Tube Flex 3.0x2.5 [id number] - [id number] Implanted:Qty: 1 on 12/07/2014 by Juancarlos Trinidad MD at [facility] Left: Finger [employer]ANDON : ORTHOPAEDICS 11/18/2015 [id number] / / [id number] documented as of this encounter Visit Diagnoses [...] (no specific identity) Health Care Power of Track Liner Operator Care Teams Or Nurse Manager Relationship Specialty Start Date End Date Kehinde Mc MD [address] [place] [address] PCP - General Internal Medicine 03/28/24 documented as of this encounter
--- OUTSIDE RECORDS SUMMARY | 2024-08-29 18:32 | External Medical Summary | Summary of Care ---
Author Name Unknown Organization [facility] Address [address] [place] [address] Phone [phone] Care Team Providers Care Relief Pharmacist Name Role Phone Kehinde Mc MD Primary Care Provider Reason for Referral * Evaluate & Treat - Unlimited Visits (Within 10 days (routine)) - Authorized Specialty Diagnoses / Procedures Referred By Lamar mcconnell Referred To Contact Pulmonary Diseases / Pulmonary Diagnoses 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 (HCC) COPD, group D, by GOLD 2017 classification (HCC) Kehinde Mc MD [address] [place] [address] Phone: tel: fax: Referral ID Status Reason Start Date Expiration Date Visits Requested Visits Authorized [id number] Authorized Specialty Services Required [phone] Question Answer Referral Priority Within 10 days (routine) Where should this appointment be scheduled? [facility] Primary Reason for Referral? Asthma/COPD Encounter Details Date Type Department Care Team (Late st Contact Info) Description 08/14/2024 Telephone [facility] [address] [place] [address] Kehinde Mc MD [address] [place], [place] [id number] Allergies Active Allergy Reactions Criticality Noted Date [...] as of this encounter (statuses as of 08/18/2024) Medications polyethylene glycol 3350 (MIRALAX) 255 gram powderIndications: Obstipation DISSOLVE AND DRINK 1 CAPFUL (17GM) IN LIQUID ONCE DAILY. 527 g 5 019 Active Additional Information Patient not taking.Reported on 03/28/2024 Aspirin 81 MG Tablet Take 1 Tablet by mouth in the morning. Active Lactobacillus (LACTINEX) chewable tablet Take 1 Tablet by mouth in the morning and 1 Tablet at noon and 1 Tablet before bedtime. 022 Active nystatin (NYSTOP) 691133 UNIT/GM powderIndications: Cutaneous candidiasis Apply topically to affected area 3 times a day. 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 25 Tab 5 020 Active Additional Information Patient not taking.Reported on 03/28/2024 Buprenorphine HCl 8 MG Sublingual Tablet Sublingual (SUBUTEX) Place 1 Tablet under the tongue. Three times daily Active oxygen IN GAS Use 4 L/min(Oxygen) as directed at bedtime as needed for Shortness of Breath. 1 Each 1 Active QC Stool Softener 100 MG Oral Capsule (docusate sodium)Indications :Constipation, unspecified constipation type TAKE ONE CAPSULE BY MOUTH 2 TIMES A DAY 60 Cap 5 Active Additional Information Patient not taking.Reported on 03/28/2024 Fluticasone Propionate 93 MCG/ACT Nasal Exhaler SuspensionIndicati ons:Allergic rhinitis due to pollen, unspecified seasonality Administer into nostril 2 Sprays daily . 16 mL 1 Active Albuterol Sulfate HFA 108 (90 Base) MCG/ACT Inhalation Aerosol SolutionIndication s:COPD, group C, by GOLD 2017 classification ([facility]),COPD, group D, by GOLD 2017 classification ([facility]) USE 2 PUFFS BY MOUTH EVERY 4 HOURS NEEDED SHORT OF BREATH 6.7 g 5 Active Magnesium Oxide 400 (241.3 Mg) MG Oral TabletIndications: Coronary artery disease involving nome coronary artery of nome heart without angina pectoris Take by mouth 400 mg in the morning. 30 Tablet 11 Active Insulin Glargine 100 UNIT/ML Subcutaneous Solution Pen-injector (Lantus) Inject under the skin 50 Units before bedtime. 10 Each 5 Active NovoLOG FlexPen 100 UNIT/ML Subcutaneous Solution Pen-injector (insulin aspart) Inject under the skin 1 Units three times a day with meals . Units as per sliding scale as instructed by provider to cover for steroid coverage when warranted 1 Each 022 Active Ipratropium-Albute rol 0.5-2.5 (3) MG/3ML Inhalation Solution (Duoneb)Indication s:COPD, severity to be determined (HCC),Wheezing Inhale 3 mL via nebulizer in the morning and 3 mL at noon and 3 mL before bedtime. 360 mL Active Fluticasone-Salmet aristeo 250-50 MCG/ACT Inhalation Aerosol Powder Breath Activated (Advair Diskus)Indications :COPD, severity to be determined (HCC),Wheezing,Obe sity hypoventilation syndrome (HCC) Inhale 1 Puff by mouth in the morning and 1 Puff before bedtime. 1 Each 2 Active Senna 8.6 MG Oral CapsuleIndications :Constipation, unspecified constipation type Take 8.6 mg by mouth daily as needed for Constipation. 30 Capsule 023 Active Spironolactone 25 MG Oral Tablet (Aldactone) Take 1 Tablet by mouth in the morning. In the morning.. 90 Tablet 2 023 Active Budesonide 0.25 MG/2ML Inhalation Suspension (Pulmicort) Inhale 0.5 mg via nebulizer in the morning and 0.5 mg in the evening. 023 Active predniSONE 10 MG Oral Tablet (Deltasone) Take 1 Tablet by mouth in the morning. Follow taper directions. 023 Active Tamsulosin HCl 0.4 MG Oral Capsule (Flomax) TAKE 2 CAPSULES EVERY MORNING 180 Capsule 023 Active True Metrix Meter w/Device KitIndications:Typ e 2 diabetes mellitus with hemoglobin A1c goal of less than 8.0% ([facility]) Use 3 times daily as directed 1 Kit 023 Active True Metrix Blood Glucose Test In Vitro Strip (Glucose Blood)Indications: Type 2 diabetes mellitus with hemoglobin A1c goal of less than 8.0% ([facility]) Use 3 times daily as directed 300 Strip 3 023 Active TRUEplus Lancets 33GIndications:Typ e 2 diabetes mellitus with hemoglobin A1c goal of less than 8.0% (HCC) Use 3 times daily as directed 300 Each 3 023 Active BD Swab Single Use Regular Pad Use 3 times daily as directed 300 Each 3 023 Active True Metrix Level 1 Low In Vitro Solution Use as directed 1 Each 023 Active Warfarin Sodium 4 MG Oral Tablet (Coumadin)Indicati ons:History of pulmonary embolism TAKE 1/2 TO 1 TABLET EVERY DAY DIRECTED BY COUMADIN CLINIC. 180 Tablet 1 024 Active Bisacodyl 5 MG Oral Tablet Delayed Release (Dulcolax)Indicati ons:Chronic constipation Take 2 Tablets by mouth daily as needed for Constipation. do not use for over 1 week. Do not cut, crush or chew 024 Active Isosorbide Dinitrate 30 MG Oral TabletIndications: Coronary artery disease involving nome coronary artery of nome heart without angina pectoris TAKE 1 TABLET BY MOUTH IN THE MORNING. 30 Tablet 5 024 Active glipiZIDE 10 MG Oral Tablet (Glucotrol)Indicat ions:Diabetes mellitus with nephropathy (HCC) TAKE ONE TABLET BY MOUTH 2 TIMES A DAY 30 MINUTES BEFORE MEALS 180 Tablet Active Atorvastatin Calcium 80 MG Oral Tablet (Lipitor) TAKE 1 TABLET BY MOUTH IN THE AFTERNOON 90 Tablet Active Cyclobenzaprine HCl 10 MG Oral Tablet (Flexeril)Indicati ons:Chronic pain syndrome TAKE 1 TABLET TWICE DAILY NEEDED FOR MUSCLE SPASM(S) 60 Tablet Active FreeStyle Js 3 [place] DeviceIndications: Type 2 diabetes mellitus with hemoglobin A1c goal of less than 8.0% ([facility]) Use as directed. 1 Each Active FreeStyle Js 3 Sensor Use as directed every 14 days. 6 Each Active Ondansetron HCl 4 MG Oral Tablet (Zofran)Indication s:Nausea TAKE 1 TABLET BY MOUTH EVERY 8 HOURS NEEDED NAUSEA 20 Tablet Active DULoxetine HCl 60 MG Oral Capsule Delayed Release Particles (Cymbalta)Indicati ons:Chronic bilateral low back pain without sciatica,DM type 2 with diabetic peripheral neuropathy (HCC) Take 1 Capsule by mouth in the morning. 90 Capsule Active Gabapentin 600 MG Oral Tablet (Neurontin) Take 1 Tablet by mouth in the morning and 1 Tablet at noon and 1 Tablet before bedtime. 270 Tablet Active Metoprolol Succinate ER 50 MG Oral Tablet Extended Release 24 Hour (toPROL XL)Indications:Cor onary artery disease involving nome coronary artery of nome heart without angina pectoris TAKE 1 & 1/2 TABLETS by mouth 2 TIMES A DAY 90 Tablet Active Famotidine 20 MG Oral Tablet (Pepcid)Indication s:Gastroesophageal reflux disease without esophagitis Take 1 Tablet by mouth at bedtime. 30 Tablet Active Furosemide 40 MG Oral Tablet (Lasix) Take 1 Tablet by mouth 2 times a day. 60 Tablet Active Finasteride 5 MG Oral Tablet (Proscar)Indicatio ns:BPH with obstruction/lower urinary tract symptoms TAKE ONE TABLET BY MOUTH EVERY DAY IN THE MORNING 30 Tablet Active Pantoprazole Sodium 40 MG Oral Tablet Delayed Release (Protonix) Take 1 Tablet by mouth in the morning. 30 Tablet 5 Active Omeprazole 20 MG Oral Capsule Delayed Release (PriLOSEC) TAKE ONE CAPSULE BY MOUTH 1 HOUR BEFORE THE 1ST MEAL OF THE DAY 30 Capsule 5 Active Folic Acid 1 MG Oral Tablet Take 1 Tablet by mouth in the morning. 90 Tablet 2 Active Ferrous Sulfate 325 (65 Fe) MG Oral Tablet (Feosol)Indication s:Iron deficiency anemia due to chronic blood loss Take 1 Tablet by mouth daily with breakfast. 90 Tablet 1 Active Semaglutide(0.25 or 0.5MG/DOS) 2 MG/3ML Solution Pen-injector (Ozempic)Indicatio ns:DM type 2 with diabetic peripheral neuropathy (HCC),Diabetes mellitus with nephropathy (HCC) Inject 0.25 mg under the skin once a week for 14 days, THEN 0.5 mg once a week. 9.75 mL 2024 Active oxyCODONE HCl 10 MG Oral Tablet (Roxicodone)Indica tions:Chronic pain of right knee Take 1 Tablet by mouth 2 times a day as needed for Pain, Moderate or Pain, Severe. 30 Tablet Active Azithromycin 250 MG Oral Tablet (Zithromax Z-Hector) Take two tablets by mouth on first day, then 1 tablet daily until gone 6 Tablet Active Potassium Chloride Terra ER 20 MEQ Oral Tablet Extended ReleaseIndications :Hypokalemia Take 1 Tablet by mouth in the morning and 1 Tablet at noon and 1 Tablet before bedtime. TAKE ONE TABLET EVERY MORNING AND AT BEDTIME. 270 Tablet 3 Active Dextromethorphan-g uaiFENesin 10-100 MG/5ML Oral Liquid (Robitussin DM) Take 5 mL by mouth every 6 hours as needed for Cough. 120 mL 5 Active Torsemide 100 MG Oral Tablet (Demadex) Take 1 Tablet by mouth in the morning. 024 2023 Discontinued Potassium Chloride Terra ER 20 MEQ Oral Tablet Extended ReleaseIndications :Hypokalemia TAKE ONE TABLET EVERY MORNING AND AT BEDTIME 180 Tablet 2 024 2023 Discontinued(R efill) documented as of this encounter (statuses as of 08/18/2024) Active Problems Problem Noted Date Diagnosed Date [...] hemorrhage 10/04/2020 Coronary artery disease invo lving nome heart without angina pectoris 10/04/2020 COPD, group [...] as of this encounter (statuses as of 08/18/2024) Resolved Problems Problem Noted Date Diagnosed Date [...] of kidney 08/20/2015 8 Overview (08/21/2015): right, [place] Vitamin D deficiency 01/31/2015 018 Body [...] pain, right upper quadrant 01/30/2015 Acute pancreatitis Overview (05/31/2009): adm x 2 diabetes Closed [...] as of this encounter (statuses as of 08/18/2024) Immunizations Name Administration Dates Next Due COVID-19 mRNA, LNP-s, No Pre serve, 2-Dose Series ([employer]) 01/02/2021,12/05/2020 DTP Vaccine 07/19/2017,04/03/2014 Hepatitis B, 20+ [...] Telephone Encounter - Stephen Mcpherson OSA - 08/18/2024 2:07 PM EST Patient scheduled * Telephone Encounter - Kehinde Mc MD - 08/14/2024 12:06 PM EST Talked to pt already Increasing potasssium 20 tid to take Please set up mobile lab again for blood test next Wednesday to follow up And please schedule with pulmo for COPD Sent cough syrup too documented in this encounter Plan of Treatment Upcoming Encounters Date Type Department Care Team (Late st Contact Info) Description 08/23/2024 2:20 PM EST Telemedicine Pulmonary Medicine, [facility] [address] [facility] [place] [address] Arthur Jansen MD [address] [facility] [place] [address] 08/28/2024 7:00 AM EST Laboratory Lab [facility] [address] [facility] [address] [facility] Mobile Home Draw [address] [facility] [place] [address] 08/29/2024 6:00 AM EST Anticoagulation Centralized Clinical Pharmacy Services, Ciera Griffin [address] [place] [address] [place] [address] [place] [address] Scheduled Orders Name Type Priority Associated Diagnoses Orde r Schedule BASIC METABOLIC PANEL Lab Routine Hypokalemia Expected: 08/21/2024 (Approximate), Expires: 08/14/2025 CBC WITH WBC DIFFERENTIAL Lab Routine Hypokalemia 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 (HCC) COPD, group D, by GOLD 2017 classification (HCC) Expected: 08/21/2024 (Approximate), Expires: 08/14/2025 Scheduled Referrals Name Type Priority Associated Diagnoses Orde r Schedule PULMONARY REFERRAL OP Referral Within 10 days (routine) 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 (HCC) COPD, group D, by GOLD 2017 classification (HCC) Ordered: 08/14/2024 Health Maintenance Due Date Last Done Comments [...] this encounter Medical Devices Implanted Type Area Material Inspector Device Identifier Shelf Expiration Date Model / Serial / Lot Tube Flex 3.0x2.5 [id number] - [id number] Implanted:Qty: 1 on 12/07/2014 by Juancarlos Trinidad MD at [facility] Left: Finger [employer] : ORTHOPAEDICS 11/18/2015 [id number] / / [id number] documented as of this encounter Visit Diagnoses Diagnosis 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 (HCC)- Primary Hypokalemia Hypopotassemia COPD, group D, by GOLD 2017 classification (HCC) documented in this encounter Advance Directives * [...] (no specific identity) Health Care Power of Tip Tester Care Teams Relief Pharmacist Relationship Specialty Start Date End Date Kehinde Mc MD [address] [place] [address] PCP - General Internal Medicine 03/28/24 documented as of this encounter
--- OUTSIDE RECORDS SUMMARY | 2024-08-29 18:32 | External Medical Summary | Summary of Care ---
Author Name Unknown Organization [facility] Address [address] [place] [address] Phone [phone] Care Team Providers Care Automotive Parts Counterperson Name Role Phone Kehinde Mc MD Primary Care Provider [phone] Encounter Details Date Type Department Care Team (Late st Contact Info) Description 08/15/2024 Telephone [facility] [address] [place] [address] Kehinde Mc MD [address] [place] [address] Allergies Active Allergy Reactions Criticality Noted [...] LIQUID ONCE DAILY. 527 g 5 09/28/19 Active Additional Information Patient not taking.Reported on 03/28/2024 Aspirin 81 MG Tablet Take 1 Tablet by mouth in the morning. Active Lactobacillus (LACTINEX) chewable tablet Take 1 Tablet by mouth in the morning and 1 Tablet at noon and 1 Tablet before bedtime. 04/19/20 Active nystatin (NYSTOP) 812383 UNIT/GM powderIndications:C utaneous candidiasis Apply topically to affected area 3 times a day. Apply to AFFECTED AREAS 3 times daily as needed 60 g 05/01/20 Active Additional Information Patient not taking.Reported on 03/28/2024 nitroglycerin (NITROSTAT) 0.4 MG SUBLIndications:Cor onary artery disease of autologous vein bypass graft with stable angina pectoris ([facility]) Place 1 Tab under the tongue every [...] group C, by GOLD 2017 classification ([facility]),COPD, group D, by GOLD 2017 classification ([facility]) USE 2 PUFFS BY MOUTH EVERY [...] A1c goal of less than 8.0% ([facility]) Use 3 times daily as directed [...] 5 05/30/20 24 Active FreeStyle Js 3 [place] DeviceIndications:T ype 2 diabetes mellitus with hemoglobin A1c goal of less than 8.0% ([facility]) Use as directed. 1 Each 1 05/30/20 [...] of kidney 08/20/2015 8 Overview (08/21/2015): right, [place] CT Vitamin D deficiency 01/31/2015 018 Body [...] LNP-s, No Pre serve, 2-Dose Series ([employer]) 01/02/2021,12/05/2020 DTP Vaccine 07/19/2017,04/03/2014 Hepatitis B, [...] 03/28/2024 9:07 PM Janice Henry, ALEXANDER * Are you blind or do [...] Telephone Encounter - Kehinde Mc MD - 08/15/2024 9:25 AM EST Hba1c was much better , down to 7.9 from 9.4 For future procedure, goal of hba1c is less than 7 Pt started ozempic , so it should help And still should keep diet change as discussed documented in this encounter Plan of Treatment Health Maintenance Due Date Last Done Comments DISCUSS TOBACCO CESSATION (REFER TO SMARTSET #3299) 1970 HIV Screening 1985 Pneumococcal Vaccine: Pediatrics [...] this encounter Medical Devices Implanted Type Area Meat Manager Device Identifier Shelf Expiration Date Model / Serial / Lot Tube Flex 3.0x2.5 [id number] - [id number] Implanted:Qty: 1 on 12/07/2014 by Juancarlos Trinidad MD at [facility] Left: Finger [employer] : ORTHOPAEDICS 11/18/2015 [id number] / / [id number] documented as of this encounter Advance Directives [...] (no specific identity) Health Care Power of Team Guide Care Teams Automotive Parts Counterperson Relationship Specialty Start Date End Date Kehinde Mc MD [address] [place] [address] PCP - General Internal Medicine 03/28/24 documented as of this encounter
--- OUTSIDE RECORDS SUMMARY | 2024-08-29 18:32 | External Medical Summary | Summary of Care ---
Author Name Unknown Organization [facility] Address [address] [place] [address] Phone [phone] Care Team Providers Care Invertebrate Paleontologist Name Role Phone Kehinde Mc MD Primary Care Provider [phone] Reason for Visit * Reason Comments Dosage Adjustment Via Phone (anticoag Cl inic) Encounter Details Date Type Department Care Team ([facility] Contact Info) Description 08/15/2024 6:00 AM EST Anticoagulation Centralized Clinical Pharmacy Services, [facility] [address] [place] [address] [place] [address] [place] [address] History of pulmonary embolism* Allergies Active Allergy [...] before bedtime. 04/19/20 22 Active nystatin (NYSTOP) 225081 UNIT/GM powderIndications:C utaneous candidiasis Apply topically to affected area 3 times a day. 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 ([facility]) Place 1 Tab under the tongue [...] MG Oral TabletIndications:C oronary artery disease involving kiowa tribe coronary artery [...] A1c goal of less than 8.0% ([facility]) Use 3 times daily as directed 1 Kit 08/31/20 23 Active True Metrix Blood Glucose Test In Vitro Strip (Glucose Blood)Indications:T ype 2 diabetes mellitus with hemoglobin A1c goal of less than 8.0% (HCC) Use 3 times daily as directed 300 Strip 3 08/31/20 23 Active TRUEplus Lancets 33GIndications:Type 2 diabetes mellitus with hemoglobin A1c goal of less than 8.0% ([facility]) Use 3 times daily as [...] MG Oral TabletIndications:C oronary artery disease involving kiowa tribe coronary artery [...] 5 05/30/20 24 Active FreeStyle Js 3 [place] DeviceIndications:T ype 2 diabetes mellitus with hemoglobin A1c goal of less than 8.0% ([facility]) Use as directed. 1 Each [...] Hour (toPROL XL)Indications:Freddie nary artery disease involving kiowa tribe coronary artery [...] hemorrhage 10/04/2020 Coronary artery disease invo lving kiowa tribe heart without angina pectoris 10/04/2020 [...] of kidney 08/20/2015 8 Overview (08/21/2015): right, [place] CT Vitamin D deficiency 01/31/2015 018 Body [...] mRNA, LNP-s, No Pre serve, 2-Dose Series ([email or web address]) 01/02/2021,12/05/2020 DTP Vaccine 07/19/2017,04/03/2014 Hepatitis B, 20+ [...] AM EST Phone (Outgoing) Stanton Milner (Self) [phone] (H) Spoke to Patient Subjective Patient Findings [...] changed Additional Dosing Information: Description GML([facility]) - pt prefers Tues GML at this time Tech to contact patient with dose instructions as noted. Keren Sanchez RPh 08/15/2024, 8:55 AM documented in this encounter Plan of Treatment Health Maintenance Due Date Last Done Comments DISCUSS TOBACCO CESSATION (REFER TO SMARTSET #3766) 1970 HIV Screening 1985 Pneumococcal Vaccine: Pediatrics [...] this encounter Medical Devices Implanted Type Area Gas Meter Mechanic Device Identifier Shelf Expiration Date Model / Serial / Lot Tube Flex 3.0x2.5 [id number] - [id number] Implanted:Qty: 1 on 12/07/2014 by Juancarlos Trinidad MD at [facility] Left: Finger [employer] : ORTHOPAEDICS 11/18/2015 [id number] / / [id number] documented as of this encounter Visit Diagnoses [...] (no specific identity) Health Care Power of Distiller Care Teams Invertebrate Paleontologist Relationship Specialty Start Date End Date Kehinde Mc MD [address] [place] [address] PCP - General Internal Medicine 03/28/24 documented as of this encounter
--- OUTSIDE RECORDS SUMMARY | 2024-08-29 18:32 | External Medical Summary | Summary of Care ---
Author Name Unknown Organization [facility] Address [address] [place] [address] Phone [phone] Care Team Providers Care Claim Examiner Name Role Phone Kehinde Mc MD Primary Care Provider [phone] Encounter Details Date Type Department Care Team (Late st Contact Info) Description 08/15/2024 Telephone [facility] [address] [place] [address] Kehinde Mc MD [address] [place] [address] Allergies Active Allergy Reactions Criticality Noted [...] as of this encounter (statuses as of 08/16/2024) Medications polyethylene glycol 3350 (MIRALAX) 255 gram [...] Tablet before bedtime. 04/19/20 Active nystatin (NYSTOP) 207645 UNIT/GM powderIndications:C utaneous candidiasis Apply topically to affected area 3 times a day. Apply to AFFECTED AREAS 3 times daily as needed 60 g 05/01/20 Active Additional Information Patient not taking.Reported on 03/28/2024 nitroglycerin (NITROSTAT) 0.4 MG SUBLIndications:Cor onary artery disease of autologous vein bypass graft with stable angina pectoris ([facility]) Place 1 Tab under the [...] :COPD, group C, by GOLD 2017 classification ([facility] [...] than 8.0% ([facility]) Use 3 times daily as [...] [place] heart without angina pectoris TAKE 1 TABLET [...] 5 05/30/20 24 Active FreeStyle Js 3 [place] DeviceIndications:T ype 2 diabetes mellitus with hemoglobin A1c goal of less than 8.0% ([facility]) Use as directed. 1 Each [...] as of this encounter (statuses as of 08/16/2024) Active Problems Problem Noted Date Diagnosed Date [...] as of this encounter (statuses as of 08/16/2024) Resolved Problems Problem Noted Date Diagnosed Date [...] of kidney 08/20/2015 8 Overview (08/21/2015): right, [place] CT Vitamin D deficiency 01/31/2015 018 Body [...] as of this encounter (statuses as of 08/16/2024) Immunizations Name Administration Dates Next Due COVID-19 mRNA, LNP-s, No Pre serve, 2-Dose Series ([employer]) 01/02/2021,12/05/2020 DTP Vaccine 07/19/2017,04/03/2014 Hepatitis B, [...] Author Yes 03/28/2024 9:07 PM EDT Janice Tanner, ALEXANDER * Do you have difficulty dressing or [...] Telephone Encounter - Lisa Poe LPN - 08/16/2024 3:11 PM EST Attempted to call patient, there [...] EST Laboratory Lab Mobile Phlebotomy [facility] [address] [place] [address] [facility], Gml Mobile Home Draw [address] [place] [address] 08/29/2024 6:00 AM EST Anticoagulation Centralized Clinical Pharmacy Services, [facility]iera Griffin [address] [place] [address] [place] [address] [facility] [address] [place] [address] Health Maintenance Due Date Last Done Comments DISCUSS TOBACCO CESSATION (REFER TO SMARTSET #2030) 1970 HIV Screening 1985 Pneumococcal Vaccine: Pediatrics [...] this encounter Medical Devices Implanted Type Area Recreation Activities Coordinator Device Identifier Shelf Expiration Date Model / Serial / Lot Tube Flex 3.0x2.5 [id number] - [id number] Implanted:Qty: 1 on 12/07/2014 by Juancarlos Trinidad MD at [facility] Left: Finger [employer] : ORTHOPAEDICS 11/18/2015 [id number] / / [id number] documented as of this encounter Advance Directives [...] (no specific identity) Health Care Power of International Logistics Coordinator Care Teams Claim Examiner Relationship Specialty Start Date End Date Kehinde Mc MD [address] [place] [address] PCP - General Internal Medicine 03/28/24 documented as of this encounter
--- OUTSIDE RECORDS SUMMARY | 2024-08-29 18:32 | External Medical Summary | Summary of Care ---
Author Name Unknown Organization [facility] Address [address] [place] [address] Phone [phone] Care Team Providers Care Used Car Sales Manager Name Role Phone Kehinde Mc MD Primary Care Provider [phone] Reason for Visit * Reason Onset Date Comments Advice 08/15/2024 Encounter Details Date Type Department Care Team (Late st Contact Info) Description 08/15/2024 Telephone [facility] [address] [facility] [place] [address] Kehinde Mc MD [address] [place] [address] Advice Allergies Active Allergy Reactions [...] as of this encounter (statuses as of 08/21/2024) Medications polyethylene glycol 3350 (MIRALAX) 255 gram [...] before bedtime. 04/19/20 22 Active nystatin (NYSTOP) 500896 UNIT/GM powderIndications:C utaneous candidiasis Apply topically to affected area 3 times a day. 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 ([facility]) Place 1 Tab under the [...] :COPD, group C, by GOLD 2017 classification ([facility]),COPD, group D, by GOLD 2017 classification ([facility]) USE 2 PUFFS BY MOUTH EVERY 4 HOURS NEEDED SHORT OF BREATH 6.7 g 5 11/25/19 Active Magnesium Oxide 400 (241.3 Mg) MG Oral TabletIndications:C oronary artery disease involving gulkana coronary artery of gulkana heart without angina pectoris Take by mouth [...] hemoglobin A1c goal of less than 8.0% ([facility]) Use 3 times daily as directed 1 Kit 08/31/20 23 Active True Metrix Blood Glucose Test In Vitro Strip (Glucose Blood)Indications:T ype 2 diabetes mellitus with hemoglobin A1c goal of less than 8.0% (HCC) Use 3 times daily as directed 300 Strip 3 08/31/20 23 Active TRUEplus Lancets 33GIndications:Type 2 diabetes mellitus with hemoglobin A1c goal of less than 8.0% ([facility]) Use 3 times daily as [...] MG Oral TabletIndications:C oronary artery disease involving gulkana coronary artery of gulkana heart without angina pectoris TAKE 1 TABLET [...] 5 05/30/20 24 Active FreeStyle Js 3 [place] DeviceIndications:T ype 2 diabetes mellitus with hemoglobin A1c goal of less than 8.0% ([facility]) Use as directed. 1 Each [...] Hour (toPROL XL)Indications:Freddie nary artery disease involving gulkana coronary artery of gulkana heart without angina pectoris TAKE 1 & [...] MCG/ACT Inhalation Aerosol Powder Breath Activated (umeclidinium [place]) Inhale 1 Puff by mouth in the [...] as of this encounter (statuses as of 08/21/2024) Active Problems Problem Noted Date Diagnosed Date [...] hemorrhage 10/04/2020 Coronary artery disease invo lving gulkana heart without angina pectoris 10/04/2020 COPD, group [...] as of this encounter (statuses as of 08/21/2024) Resolved Problems Problem Noted Date Diagnosed Date [...] of kidney 08/20/2015 8 Overview (08/21/2015): right, [place] CT Vitamin D deficiency 01/31/2015 018 Body [...] as of this encounter (statuses as of 08/21/2024) Immunizations Name Administration Dates Next Due COVID-19 [...] 08/15/2024 3:12 PM EST HH Concerns Tracey MUNOZ, Calling from: [facility] Report/Concerns of: URI wheezing Symptoms: see narrative Vitals: T98.6 P87 RR18 BP 125/78 SP O2 94% RA Lung sounds wheezing Narrative: pt was prescribed z-hector last week for URI. His sx continue, he still has has wheezing. He is using his neb tx and inhalers. Tracey inquiring if additional meds should be prescribed? Call back Stanton with any advice or orders at [phone] * Telephone Encounter - Coco Escoto OSA - 08/15/2024 3:10 PM EST Reason for patient's call: Tracey an RN from [facility] Caller was transferred to Zohreh at the nurse line. documented in this encounter Plan of Treatment Upcoming Encounters Date Type Department Care Team (Late st Contact Info) Description 08/23/2024 2:20 PM EST Telemedicine Pulmonary Medicine, [facility] [address] [facility] [place] [address] Arthur Jansen MD [address] [facility] [place] [address] 08/28/2024 7:00 AM EST Laboratory Lab Mobile Phlebotomy [facility] [address] [facility] [place] [address] [facility], [facility] Mobile Home Draw [address] [employer] [place] [address] 08/29/2024 6:00 AM EST Anticoagulation Centralized Clinical Pharmacy Services, Ciera Griffin [address] [place] [address] [place] [address] [facility], [address] [place] [address] Health Maintenance Due Date Last Done Comments DISCUSS TOBACCO CESSATION (REFER TO SMARTSET #3146) 1970 HIV Screening 1985 Pneumococcal Vaccine: Pediatrics [...] this encounter Medical Devices Implanted Type Area Cigar Making Machine Supervisor Device Identifier Shelf Expiration Date Model / Serial / Lot Tube Flex 3.0x2.5 [id number] - [id number] Implanted:Qty: 1 on 12/07/2014 by Juancarlos Trinidad MD at [facility] Left: Finger LANDON : ORTHOPAEDICS 11/18/2015 [id number] / / [id number] documented as of this encounter Advance Directives [...] (no specific identity) Health Care Power of Chiropractor Assistant Care Teams Used Car Sales Manager Relationship Specialty Start Date End Date Kehinde Mc MD [address] [place] [address] PCP - General Internal Medicine 03/28/24 documented as of this encounter
--- OUTSIDE RECORDS SUMMARY | 2024-08-29 18:33 | External Medical Summary ---
Author Name Unknown Address Unknown Organization [id number] [address] [place] [address] Laboratory Report Ordering Provider Test Date Status YESENIACHRISTOPHINGRIS 08/14/2024 09:10:00 Final Observation Date Value Abnormality Reference (Units ) Status Nucleated erythrocytes/100 leukocytes [Ratio] in Blood by Automated count 08/14/2024 09:10:00 Final Performing Location [facility] [address] [place] [address]
--- OUTSIDE RECORDS SUMMARY | 2024-08-29 18:33 | External Medical Summary ---
Author Name Unknown Address Unknown Organization [id number] [address] [place] [address] Laboratory Report Ordering Provider Test Date Status ABATULIO 08/14/2024 09:10:00 Final Standing order for pt/inr. < br/>Please draw pt/inr every 1 to 4 weeks as requested
Results to [facility]

Warfarin Therapy
INR: 2.0-3.0 conventional anticoagulation
INR: 2.5-3.5 high intensity anticoagulation Observation Date Value Abnormality Reference (Units ) Status PT 08/14/2024 09:10:00 23.0 Above high normal 11 .6-15.2 (seconds) Final INR 08/14/2024 09:10:00 2.0 Above high normal 0. 8-1.2 Final Performing Location [facility] [address] [place] [address]
--- OUTSIDE RECORDS SUMMARY | 2024-08-29 18:33 | External Medical Summary ---
Author Name Unknown Address Unknown Organization [id number] [address] [place] [address] Laboratory Report Ordering Provider Test Date Status INGRIS BISHOP 08/14/2024 09:10:00 Final Observation Date Value Abnormality Reference (Units ) Status WBC, Total 08/14/2024 09:10:00 14.82 Above high normal 4 .00-10.80 (K/uL) Final RBC 08/14/2024 09:10:00 4.71 4.50-5.25 (M/uL) Final Hemoglobin 08/14/2024 09:10:00 11.8 Below low normal 14 .0-16.8 (g/dL) Final HCT 08/14/2024 09:10:00 37.2 Below low normal 40. 0-48.4 (%) Final MCV 08/14/2024 09:10:00 79.0 82.0-99.5 (fL) Final MCH 08/14/2024 09:10:00 25.1 27.0-34.0 (pg) Final MCHC 08/14/2024 09:10:00 31.7 32.0-36.0 (g/dL) Final RDW 08/14/2024 09:10:00 19.4 11.5-15.5 (%) Final Platelets 08/14/2024 09:10:00 259 140-400 (K /uL) Final MPV 08/14/2024 09:10:00 11.4 6.6-11.1 ( fL) Final Performing Location [facility] [address] [place] [address]
--- OUTSIDE RECORDS SUMMARY | 2024-08-29 18:33 | External Medical Summary ---
Author Name Unknown Address Unknown Organization [id number]:[facility] [address] [place] [address] Laboratory Report Ordering Provider Test Date Status INGRIS BISHOP 08/14/2024 09:10:00 Final Observation Date Value Abnormality Reference (Units ) Status BUN 08/14/2024 09:10:00 10 6-20 (mg/dL) Final Creatinine 08/14/2024 09:10:00 0.8 0.6-1.2 (mg/dL) Final Glomerular filtration rate/1.73 sq M.predicted [Volume Rate/Area] in Serum, Plasma or Blood by Creatinine-based formula (CKD-EPI) 08/14/2024 09:10:00 >90 >=60 (mL/min) Final eGFR is calculated based on the CKD-EPI 2020 equation. Sodium 08/14/2024 09:10:00 141 135-146 (m mol/L) Final Potassium 08/14/2024 09:10:00 3.0 Below low normal 3.5 -5.1 (mmol/L) Final Cl 08/14/2024 09:10:00 94 Below low normal 98- 107 (mmol/L) Final CO2 08/14/2024 09:10:00 40 Above high normal 22 -32 (mmol/L) Final Anion gap 08/14/2024 09:10:00 7 7-15 (mmol /L) Final Glucose 08/14/2024 09:10:00 157 Above high normal 70 -120 (mg/dL) Final Albumin 08/14/2024 09:10:00 3.2 Below low normal 3.8 -5.0 (g/dL) Final AST (Aspartate aminotransferase) 08/14/2024 09:10:00 29 10-50 (U/L) Fin al Alk Phos 08/14/2024 09:10:00 125 35-130 (U/ L) Final Bilirubin, Total 08/14/2024 09:10:00 0.6 <=1 .2 (mg/dL) Final Calcium 08/14/2024 09:10:00 9.5 8.4-10.2 ( mg/dL) Final Protein 08/14/2024 09:10:00 5.9 Below low normal 6.0 -8.3 (g/dL) Final ALT (Alanine aminotransferase) 08/14/2024 09:10:00 29 10-50 (U/L) Hugh mcnamara Performing Location [facility] [address] [facility] [address]
--- OUTSIDE RECORDS SUMMARY | 2024-08-29 18:33 | External Medical Summary ---
Author Name Unknown Address Unknown Organization K01:[facility] - [facility] [address] [facility] [address] Laboratory Report Ordering Provider Test Date Status INGRIS BSIHOP 08/14/2024 09:10:00 Final Observation Date Value Abnormality Reference (Units ) Status HbA1C 08/14/2024 09:10:00 7.9 Above high normal 4. 0-5.6 (%) Final The use of HbA1c to monitor glycemic status is based on normal hemoglobin and HbA composition. This test should not be used in patients with abnormal hemoglobin that affects the half life of the red blood cell or the in vivo glycation rates. Glucose, estimated average 08/14/2024 09:10:00 180 Above high normal <126 (mg/dL) Hugh mcnamara Performing Location [facility] - [address] [facility] [address]
--- OUTSIDE RECORDS SUMMARY | 2024-08-29 18:33 | External Medical Summary ---
Author Name Unknown Address Unknown Organization [id number] [address] [place] [address] Laboratory Report Ordering Provider Test Date Status INGRIS BISHOP 08/14/2024 09:10:00 Final Observation Date Value Abnormality Reference (Units ) Status SYNC LEUKOCYTES IN BLOOD BY AUTOMATED COUNT 08/14/2024 09:10:00 14.82 Above high normal 4.00-10.80 (K/uL) Final Segs 08/14/2024 09:10:00 69.5 40.0-75.0 (%) Final Lymphs % 08/14/2024 09:10:00 22.9 18.0-42.0 (%) Final Monos 08/14/2024 09:10:00 5.4 1.0-11.0 (%) Final Eosinophils 08/14/2024 09:10:00 2.1 0.0-6.0 (%) Final Basos 08/14/2024 09:10:00 0.1 0.0-2.0 (%) Final Absolute Segs 08/14/2024 09:10:00 10.29 Above high normal 1.80-7.70 (K/uL) Final Lymphs, absolute 08/14/2024 09:10:00 3.40 1.00-4.80 (K/ul) Final Monos, Abs 08/14/2024 09:10:00 0.80 0.00-1.10 (K/uL) Final Eos, Abs 08/14/2024 09:10:00 0.31 0.00-0.70 (K/uL) Final Basos, Abs 08/14/2024 09:10:00 0.02 0.00-0.20 (K/uL) Final Performing Location [facility] [address] [place] [address]
--- OUTSIDE RECORDS SUMMARY | 2024-08-29 18:33 | External Medical Summary | Summary of Care ---
Author Name Unknown Organization [facility] Address [address] [place] [address] Phone [phone] Care Team Providers Care Water Quality Analyst Name Role Phone Kehinde Mc MD Primary Care Provider [phone] Reason for Referral * Evaluate & Treat - Unlimited Visits (Within 10 days (routine)) - Authorized Specialty Diagnoses / Procedures Referred By Lamar mcconnell Referred To Contact Pulmonary Diseases / Pulmonary Diagnoses 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 (HCC) COPD, group D, by GOLD 2017 classification (HCC) Kehinde Mc MD [address] [place] [address] Phone: tel: fax: Referral ID Status Reason Start Date Expiration Date Visits Requested Visits Authorized [id number] Authorized Specialty Services Required 4 [phone] Question Answer Referral Priority Within 10 days (routine) Where should this appointment be scheduled? [facility] Primary Reason for Referral? Asthma/COPD Encounter Details Date Type Department Care Team (Late st Contact Info) Description 08/14/2024 Telephone [facility] [address] [place] [address] Kehinde Mc MD [address] [place], [place] [id number] Allergies Active Allergy Reactions Criticality Noted Date [...] as of this encounter (statuses as of 08/14/2024) Medications polyethylene glycol 3350 (MIRALAX) 255 gram [...] Tablet before bedtime. 022 Active nystatin (NYSTOP) 478530 UNIT/GM powderIndications: Cutaneous candidiasis Apply topically to [...] MG Oral TabletIndications: Coronary artery disease involving samish coronary artery of samish heart without angina pectoris Take by mouth [...] MG Oral TabletIndications: Coronary artery disease involving samish coronary artery of samish heart without angina pectoris TAKE 1 TABLET [...] SPASM(S) 60 Tablet Active FreeStyle Js 3 [place] DeviceIndications: Type 2 diabetes mellitus with hemoglobin A1c goal of less than 8.0% ([facility]) Use as directed. 1 Each Active [...] Hour (toPROL XL)Indications:Cor onary artery disease involving samish coronary artery of samish heart without angina pectoris TAKE 1 & [...] as of this encounter (statuses as of 08/14/2024) Active Problems Problem Noted Date Diagnosed Date [...] hemorrhage 10/04/2020 Coronary artery disease invo lving samish heart without angina pectoris 10/04/2020 COPD, group [...] as of this encounter (statuses as of 08/14/2024) Resolved Problems Problem Noted Date Diagnosed Date [...] of kidney 08/20/2015 8 Overview (08/21/2015): right, [place] CT Vitamin D deficiency 01/31/2015 018 Body [...] of inactive term Other forms of migraine, rsuh ruiz mention of intractable migraine without mention [...] as of this encounter (statuses as of 08/14/2024) Immunizations Name Administration Dates Next Due COVID-19 mRNA, LNP-s, No Pre serve, 2-Dose Series (mon.ki) 01/02/2021,12/05/2020 DTP Vaccine 07/19/2017,04/03/2014 Hepatitis B, 20+ [...] Team (Late st Contact Info) Description 08/15/2024 6:00 AM EST Anticoagulation Centralized Clinical Pharmacy Services, Ciera Griffin [address] [place] [address] [place] [address] [facility], [address] [place] [address] Scheduled Orders Name Type Priority Associated Diagnoses [...] COPD 04/04/2025 04/04/2024 Albumin/Creatinine Ratio 05/29/2025 05/29/2024, 072 10/2019 GFR 08/14/2025 08/14/2024, 082 02/2024, 04/04/2024, Additional history exists DTap/Tdap Vaccines (4 - Td or Tdap) 06/08/2029 06/08/2019, 07/19/2017, 04/03/2014 Alpha-1 Antitrypsin Completed 12/16/2021 HPV (Gardasil) Vaccine Aged Out No lo nger eligible based on patient's age to complete this topic MENINGOCOCCAL (MENACTRA/MENVEO) Aged Out No longer eligible based on patient's age to complete this topic documented as of this encounter Medical Devices Implanted Type Area Fish House Worker Device Identifier Shelf Expiration Date Model / Serial / Lot Tube Flex 3.0x2.5 [id number] - [id number] Implanted:Qty: 1 on 12/07/2014 by Juancarlos Trinidad MD at [facility] Left: Finger LANDON : ORTHOPAEDICS 11/18/2015 [id number] / / [id number] documented as of this encounter Visit Diagnoses [...] (no specific identity) Health Care Power of Emissions Testing And Repair Technician Care Teams Water Quality Analyst Relationship Specialty Start Date End Date Kehinde Mc MD [address] [place] [address] PCP - General Internal Medicine 03/28/24 documented as of this encounter
--- OUTSIDE RECORDS SUMMARY | 2024-08-29 18:34 | External Medical Summary | Summary of Care ---
Author Name Unknown Organization [facility] Address [address] [place] [address] Phone [phone] Care Team Providers Care Relish Blender Name Role Phone Kehinde Mc MD Primary Care Provider [phone] Reason for Visit * Reason Onset Date Comments Hospital Follow-Up 08/09/2024 [facility] ([facility]) Encounter Details Date Type Department Care Team (Late st Contact Info) Description 08/09/2024 Telephone [facility] [address] [place] [address] Shahida Rizo RN Hospital Follow-Up ([facility] ([facility])) Allergies Active Allergy Reactions Criticality Noted Date [...] as of this encounter (statuses as of 08/09/2024) Medications polyethylene glycol 3350 (MIRALAX) 255 gram [...] Tablet before bedtime. 04/19/20 Active nystatin (NYSTOP) 505052 UNIT/GM powderIndications:C utaneous candidiasis Apply topically to [...] (HCC),COPD, group D, by GOLD 2017 classification ([facility]) USE 2 PUFFS BY MOUTH EVERY 4 HOURS NEEDED SHORT OF BREATH 6.7 g 5 11/25/19 Active Magnesium Oxide 400 (241.3 Mg) MG Oral TabletIndications:C oronary artery disease involving kaw coronary artery of [...] in the morning. Follow taper directions. 08/26/20 Active Tamsulosin HCl 0.4 MG Oral Capsule (Flomax) TAKE 2 CAPSULES EVERY MORNING 180 Capsule 08/31/20 Active True Metrix Meter w/Device KitIndications:Type 2 diabetes mellitus with hemoglobin A1c goal of less than 8.0% ([facility]) Use 3 times daily as directed 1 Kit 08/31/20 Active True Metrix Blood Glucose Test In [...] MG Oral TabletIndications:C oronary artery disease involving kaw coronary artery of [...] AFTERNOON 90 Tablet 3 05/16/20 24 Active oxyCODONE HCl 10 MG [...] Tablet 05/30/20 24 Active FreeStyle Js 3 [place] DeviceIndications:T ype 2 diabetes mellitus with hemoglobin A1c goal of less than 8.0% ([facility]) Use as directed. 1 Each 05/30/20 24 [...] Hour (toPROL XL)Indications:Freddie nary artery disease involving kaw coronary artery of [...] EVERY DAY IN THE MORNING 30 Tablet 06/26/20 24 Active Pantoprazole Sodium 40 MG Oral Tablet Delayed Release (Protonix) Take 1 Tablet by mouth in the morning. 30 Tablet 5 06/26/20 24 Active Omeprazole 20 MG Oral Capsule Delayed Release (PriLOSEC) TAKE ONE CAPSULE BY MOUTH 1 HOUR BEFORE THE 1ST MEAL OF THE DAY 30 Capsule 5 07/25/20 24 Active documented as of this encounter (statuses as of 08/09/2024) Active Problems Problem Noted Date Diagnosed Date [...] as of this encounter (statuses as of 08/09/2024) Resolved Problems Problem Noted Date Diagnosed Date [...] of kidney 08/20/2015 8 Overview (08/21/2015): right, [place] CT Vitamin D deficiency 01/31/2015 018 Body [...] as of this encounter (statuses as of 08/09/2024) Immunizations Name Administration Dates Next Due COVID-19 mRNA, LNP-s, No Pre serve, 2-Dose Series ([email or web address]) 01/02/2021,12/05/2020 DTP Vaccine 07/19/2017,04/03/2014 Hepatitis B, 20+ [...] Telephone Encounter - Shahida Rizo RN - 08/09/2024 9:59 AM EST Transitions of Care Note Reason for Referral:Recent Admission Phone visit for follow up: FARIDA #1 Admitted to: [facility], Date: 07/31/2024 Discharged to: Home with Home services, Date: 08/07/2024 Diagnosis driving hospitalization: Complicated UTI, Constipation, Supratherapeutic INR, Hypertension Attempted Phone Call First Attempt Call Outcome Left Voicemail/Message Shahida Rizo RN Transitions of Care Note Reason for Referral:Recent Admission Phone visit for follow up: FARIDA #2 Admitted to: [facility], Date: 07/31/2024 Discharged to: Home with Home services, Date: 08/07/2024 Diagnosis driving hospitalization: Complicated UTI, Constipation, Supratherapeutic INR, Hypertension Source/Contact: Patient/Estrella SUBJECTIVE Consent: Verbal consent for review of hospital discharge: Yes REVIEW OF SYSTEMS Patient/Other Reports: Current patient/caregiver problems or concerns: No concerns, [facility] has visited CV: Denies problems Pulmonary: Denies problems Chills/Sweats/Fever:Denies chills/sweats Denies fever Appetite:Denies problems such as nausea, vomiting, burning, decreased appetite Current diet: Carb consistent Bowel: denies problems date of last BM: today Bladder: denies problems and ostomy/indwelling catheter: Lloyd Wound (If applicable): N/A Pain:Denies Sleep:Denies problems FUNCTIONAL STATUS: ADL'S: Needs Assistance With:Toileting, uses cane IADL'S: Needs Assistance With:Grocery Shopping, Cooking food, Routine Housework, and Taking medications Cognitive and Mental Health: denies problems, alert and oriented x 3, and able to communicate, understand instructions, process information. MEDICATION RECONCILIATION Medications: Discharge med list reviewed with patient or caregiver New medication: Polyethylene glycol Changed medication: Tamsulosin Discontinued medication: Levofloxacin ASSESSMENT Medication Risk Assessment: Missing Refills Did patient fail outpatient treatment? Yes Discharge instructions available for review? Yes PLAN Symptom Monitoring Interventions:Member/caregiver education - signs and symptoms to contact PrimaryCare (DO NOT DELETE-Three vaz symptoms patient is to report to PCP) 1. Chest Pain/SOB 2. Fever/chills 3. Any worsening symptoms PolicemanDirector Of Patient Care of Care interventions/Action Plan: 5 - 7 day follow-up with PCP in place - Date: PCP appointment 08/10/2024, requesting a video visit Educated on role of FARIDA completed with patient/caregiver. Educated patient/caregiver on patient right to have input on FARIDA plan of care. Verification of Home Health/DME if indicated: YES [facility], O2 4L/NC HS and PRN Identified Care Gaps: Yes Care Gaps closed this call: Appointment made or confirmed and Transition of Care follow-up communication Re-evaluation of Plan of Care and progress towards goals achievement: Patient education this visit: Verbal, Confirmed PCP appointment 08/10/2024, discussed reasons to call sooner as above Plan to instructed to call Primary Care Provider with change in symptoms or as needed before next follow-up, discharge needs met, verbalizes understanding and agrees with plan. Shahida Rizo RN documented in this encounter Plan of Treatment Upcoming Encounters Date Type Department Care Team (Late st Contact Info) Description 08/10/2024 11:20 AM EST Office Visit [address] [address] Kehinde Mc MD [address] [place] [address] 08/14/2024 7:10 AM EST Laboratory Lab Mobile Phlebotomy [facility] [address] [place] [address] M[facility], G[facility] Mobile Home Draw [address] [place] [address] [address] 08/15/2024 6:00 AM EST Anticoagulation Centralized Clinical Pharmacy Services, Ciera Griffin [address] [place] [address] [place] [address] [place] [address] Health Maintenance Due Date Last Done Comments DISCUSS TOBACCO CESSATION (REFER TO SMARTSET #0024) 1970 HIV Screening 1985 Pneumococcal Vaccine: Pediatrics [...] this encounter Medical Devices Implanted Type Area Resourcing Advisor Device Identifier Shelf Expiration Date Model / Serial / Lot Tube Flex 3.0x2.5 [id number] - [id number] Implanted:Qty: 1 on 12/07/2014 by Juancarlos Trinidad MD at [facility] Left: Finger LANDON : ORTHOPAEDICS 11/18/2015 [id number] / / [id number] documented as of this encounter Advance Directives [...] specific identity) Health Care Power of Sales Assistant Entertainment And Media Care Teams Relish Blender Relationship Specialty Start Date End Date Kehinde Mc MD [address] [place] [address] PCP - General Internal Medicine 03/28/24 documented as of this encounter
--- OUTSIDE RECORDS SUMMARY | 2024-08-29 18:34 | External Medical Summary | Summary of Care ---
Author Name Unknown Organization [facility] Address [address] [place] [address] Phone [phone] Care Team Providers Care [employer] Lead Name Role Phone Kehinde Mc MD Primary Care Provider [phone] Encounter Details Date Type Department Care Team (Latest Contact Info) Description 08/10/2024 11:20 AM EST Telemedicine [facility] [address] [place] [phone] Kehinde Mc MD [address] [place] [address] Complicated UTI (urinary tract infection)*; Chronic pain of right knee; DM type 2 with diabetic peripheral neuropathy ([facility]); Diabetes mellitus with nephropathy ([facility]); Supratherapeutic INR; Chronic diastolic heart failure ([facility]); Type 2 diabetes mellitus with hemoglobin A1c goal of less than 8.0% ([facility]); Bronchitis, complicated; COPD, group D, by GOLD 2017 classification ([facility]); Opioid dependence, uncomplicated ([facility]) Allergies Active Allergy Reactions Criticality Noted [...] as of this encounter (statuses as of 08/10/2024) Medications polyethylene glycol 3350 (MIRALAX) 255 gram [...] before bedtime. 04/19/20 22 Active nystatin (NYSTOP) 023739 UNIT/GM powderIndications:C utaneous candidiasis Apply topically to [...] MG Oral TabletIndications:C oronary artery disease involving [place] coronary artery of [place] heart without angina pectoris Take by mouth [...] MG Oral TabletIndications:C oronary artery disease involving [place] coronary artery of [place] heart without angina pectoris TAKE 1 TABLET [...] Tablet 05/30/20 24 Active FreeStyle Js 3 [place] DeviceIndications:T ype 2 diabetes mellitus with hemoglobin A1c goal of less than 8.0% (HCC) Use as directed. 1 Each 1 05/30/20 [...] Hour (toPROL XL)Indications:Freddie nary artery disease involving [place] coronary artery of [place] heart without angina pectoris TAKE 1 & [...] DAY 30 Capsule 5 07/25/20 24 Active Potassium Chloride Terra ER 20 MEQ Oral Tablet Extended ReleaseIndications: Hypokalemia TAKE ONE TABLET EVERY MORNING AND AT BEDTIME 180 Tablet 2 08/10/20 24 Active Folic Acid 1 MG Oral [...] until gone 6 Tablet 08/10/20 24 Active oxyCODONE HCl 10 MG Oral Tablet (Roxicodone)Indicat ions:Chronic pain of right knee Take 1 Tablet by mouth 2 times a day as needed for Pain, Moderate or Pain, Severe. 30 Tablet 05/29/20 24 024 Discontin ued(Refil l) documented as of this encounter (statuses as of 08/10/2024) Active Problems Problem Noted Date Diagnosed Date [...] Coronary artery disease invo lving [place] heart without angina pectoris 10/04/2020 COPD, group [...] as of this encounter (statuses as of 08/10/2024) Resolved Problems Problem Noted Date Diagnosed Date Resolved Date Hyperlipidemia, unspecified 01/24/2021 03/14/2021 Indwelling Llyod catheter present 06/05/2020 12/10/2021 Coronary artery disease [...] of kidney 08/20/2015 8 Overview (08/21/2015): right, [place] Vitamin D deficiency 01/31/2015 018 Body [...] as of this encounter (statuses as of 08/10/2024) Immunizations Name Administration Dates Next Due COVID-19 [...] on file documented as of this encounter Last Filed Vital Signs Vital Sign Reading Time Taken Comments Blood Pressure - - Pulse - - Temperature - - Respiratory Rate - - Oxygen Saturation - - Inhaled Oxygen Concentration - - Weight 174.6 kg (385 lb) 08/10/2024 11:41 AM EST Height - - Body Mass Index 52.22 04/03/2024 12:00 PM EDT documented in this encounter Functional Status * Are you [...] Janice Tanner RN documented in this encounter Progress Notes * Kehinde Mc MD - 08/10/2024 11:20 AM EST Attila Milner is a 54 year old male. No chief complaint on file. HPI: Patient location: HOME. I was in a hospital or clinic location. After connecting through televideo,patient was verified with two unique identifiers. Patient (or authorized legal architectural representative) was then informed that this was a Telemedicine visit and being conducted confidentially over secure lines. Methods to assure confidentiality were taken. Patient acknowledged consent and understanding of pr ivacy and security of the Telemedicine visit. The patient agreed to participate. Here for hospital f/u Admission Jul 31 Discharge aug 07 Dx : complicated UTI Hx of known recurrent UTI, indwelling catheter Finished Abx for UTI At hospital he was giving insulin but does not know the dose Today morning fasting glucose was 180 now , using CGM Known COPD, using advair Has cough now , occ drainage PMH: Patient Active Problem List Diagnosis Chronic pain syndrome Do not give narcotics Allergic rhinitis Depression with anxiety Hematuria Tobacco use disorder History of pulmonary embolism History of drug overdose Venous insufficiency Chronic diastolic heart failure ([facility]) Unspecified mood (affective) disorder ([facility]) Personality disorder, unspecified ([facility]) Type 2 diabetes mellitus with hemoglobin A1c goal of less than 8.0% ([facility]) Iron deficiency anemia due to chronic blood loss Type 2 diabetes mellitus with diabetic dermatitis ([facility]) Supraventricular tachycardia ([facility]) DM type 2 with diabetic peripheral neuropathy ([facility]) Diabetes mellitus with nephropathy ([facility]) COPD, group D, by GOLD 2017 classification ([facility]) Morbid obesity with BMI of 50.0-59.9, adult ([facility]) History of subdural hematoma Gastroesophageal reflux disease without esophagitis History of subarachnoid hemorrhage Coronary artery disease involving [place] heart without angina pectoris Opioid dependence, uncomplicated ([facility]) History of [place] (myocardial infarction) History of leukocytosis 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 ([facility]) Chronic bilateral low back pain without sciatica Diabetic retinopathy of both eyes associated with type 2 diabetes mellitus ([facility]) Type 2 diabetes mellitus with foot ulcer (CODE) ([facility]) Low testosterone Bandemia Complicated UTI (urinary tract infection) Supratherapeutic INR Leukocytosis Chronic pain of right knee Current Outpatient Medications Medication Sig Dispense Refill Semaglutide(0.25 or 0.5MG/DOS) 2 MG/3ML Solution Pen-injector (Ozempic) Inject 0.25 mg under the skin once a week for 14 days, THEN 0.5 mg once a week. 9.75 mL 0 oxyCODONE HCl 10 MG Oral Tablet (Roxicodone) Take 1 Tablet by mouth 2 times a day as needed for Pain, Moderate or Pain, Severe. 30 Tablet 0 Azithromycin 250 MG Oral Tablet (Zithromax Z-Hector) Take two tablets by mouth on first day, then 1 tablet daily until gone 6 Tablet 0 polyethylene glycol 3350 (MIRALAX) 255 gram powder DISSOLVE AND DRINK 1 CAPFUL (17GM) IN LIQUID ONCE DAILY. (Patient not taking: Reported on 03/28/2024) 527 g 5 Aspirin 81 MG Tablet Take 1 Tablet by mouth in the morning. Lactobacillus (LACTINEX) chewable tablet Take 1 Tablet by mouth in the morning and 1 Tablet at noonand 1 Tablet before bedtime. nystatin (NYSTOP) 799119 UNIT/GM powder Apply topically to affected area 3 times a day. Apply to AFFECTED AREAS 3 times daily as needed (Patient not taking: Reported on 03/28/2024) 60 g 5 nitroglycerin (NITROSTAT) 0.[address] 1 Tab under the tongue every 5 minutes as needed for Pain, Chest. (Patient not taking: Reported on 03/28/2024) 25 Tab 5 Buprenorphine HCl 8 MG Sublingual Tablet Sublingual (SUBUTEX) Place 1 Tablet under the tongue. Three times daily oxygen IN GAS Use 4 L/min(Oxygen) as directed at bedtime as needed for Shortness of Breath. 1 Each 1 QC Stool Softener 100 MG Oral Capsule (docusate sodium) TAKE ONE CAPSULE BY MOUTH 2 TIMES A DAY (Patient not taking: Reported on 03/28/2024) 60 Cap 5 Fluticasone Propionate 93 MCG/ACT Nasal Exhaler Suspension Administer into nostril 2 Sprays daily .16 mL 1 Albuterol Sulfate HFA 108 (90 Base) MCG/ACT Inhalation Aerosol Solution USE 2 PUFFS BY MOUTH EVERY 4 HOURS NEEDED SHORT OF BREATH 6.7 g 5 Magnesium Oxide 400 (241.3 Mg) MG Oral Tablet Take by mouth 400 mg in the morning. 30 Tablet 11 Insulin Glargine 100 UNIT/ML Subcutaneous Solution Pen-injector (Lantus) Inject under the skin 50 Units before bedtime. 10 Each 5 NovoLOG FlexPen 100 UNIT/ML Subcutaneous Solution Pen-injector (insulin aspart) Inject under the skin 1 Units three times a day with meals . Units as per sliding scale as instructed by provider to cover for steroid coverage when warranted 1 Each 0 Ipratropium-Albuterol 0.5-2.5 (3) MG/3ML Inhalation Solution (Duoneb) Inhale 3 mL via nebulizer in the morning and 3 mL at noon and 3 mL before bedtime. 360 mL 0 Fluticasone-Salmeterol 250-50 MCG/ACT Inhalation Aerosol Powder Breath Activated (Advair Diskus) Inhale 1 Puff by mouth in the morning and 1 Puff before bedtime. 1 Each 2 Senna 8.6 MG Oral Capsule Take 8.6 mg by mouth daily as needed for Constipation. 30 Capsule 0 Spironolactone 25 MG Oral Tablet (Aldactone) Take 1 Tablet by mouth in the morning. In the morning.. 90 Tablet 2 Budesonide 0.25 MG/2ML Inhalation Suspension (Pulmicort) Inhale 0.5 mg via nebulizer in the morningand 0.5 mg in the evening. predniSONE 10 MG Oral Tablet (Deltasone) Take 1 Tablet by mouth in the morning. Follow taper directions. (Patient not taking: Reported on 03/28/2024) Tamsulosin HCl 0.4 MG Oral Capsule (Flomax) TAKE 2 CAPSULES EVERY MORNING 180 Capsule 0 True Metrix Meter w/Device Kit Use 3 times daily as directed 1 Kit 0 True Metrix Blood Glucose Test In Vitro Strip (Glucose Blood) Use 3 times daily as directed 300 Strip 3 TRUEplus Lancets 33G Use 3 times daily as directed 300 Each 3 BD Swab Single Use Regular Pad Use 3 times daily as directed 300 Each 3 True Metrix Level 1 Low In Vitro Solution Use as directed 1 Each 0 Warfarin Sodium 4 MG Oral Tablet (Coumadin) TAKE 1/2 TO 1 TABLET EVERY DAY DIRECTED BY COUMADIN CLINIC. 180 Tablet 1 Torsemide 100 MG Oral Tablet (Demadex) Take 1 Tablet by mouth in the morning. Bisacodyl 5 MG Oral Tablet Delayed Release (Dulcolax) Take 2 Tablets by mouth daily as needed for Constipation. do not use for over 1 week. Do not cut, crush or chew (Patient not taking: Reported on 03/28/2024) Isosorbide Dinitrate 30 MG Oral Tablet TAKE 1 TABLET BY MOUTH IN THE MORNING. 30 Tablet 5 glipiZIDE 10 MG Oral Tablet (Glucotrol) TAKE ONE TABLET BY MOUTH 2 TIMES A DAY 30 MINUTES BEFORE MEALS 180 Tablet 3 Atorvastatin Calcium 80 MG Oral Tablet (Lipitor) TAKE 1 TABLET BY MOUTH IN THE AFTERNOON 90 Tablet 3 Cyclobenzaprine HCl 10 MG Oral Tablet (Flexeril) TAKE 1 TABLET TWICE DAILY NEEDED FOR MUSCLE SPASM(S) 60 Tablet 5 FreeStyle Js 3 [place] Device Use as directed. 1 Each 1 FreeStyle Js 3 Sensor Use as directed every 14 days. 6 Each 3 Ondansetron HCl 4 MG Oral Tablet (Zofran) TAKE 1 TABLET BY MOUTH EVERY 8 HOURS NEEDED NAUSEA 20 Tablet 1 DULoxetine HCl 60 MG Oral Capsule Delayed Release Particles (Cymbalta) Take 1 Capsule by mouth in the morning. 90 Capsule 1 Gabapentin 600 MG Oral Tablet (Neurontin) Take 1 Tablet by mouth in the morning and 1 Tablet at noon and 1 Tablet before bedtime. 270 Tablet 1 Metoprolol Succinate ER 50 MG Oral Tablet Extended Release 24 Hour (toPROL XL) TAKE 1 & 1/2 TABLETS by mouth 2 TIMES A DAY 90 Tablet 5 Famotidine 20 MG Oral Tablet (Pepcid) Take 1 Tablet by mouth at bedtime. 30 Tablet 5 Furosemide 40 MG Oral Tablet (Lasix) Take 1 Tablet by mouth 2 times a day. 60 Tablet 5 Finasteride 5 MG Oral Tablet (Proscar) TAKE ONE TABLET BY MOUTH EVERY DAY IN THE MORNING 30 Tablet 5 Pantoprazole Sodium 40 MG Oral Tablet Delayed Release (Protonix) Take 1 Tablet by mouth in the morning. 30 Tablet 5 Omeprazole 20 MG Oral Capsule Delayed Release (PriLOSEC) TAKE ONE CAPSULE BY MOUTH 1 HOUR BEFORE THE 1ST MEAL OF THE DAY 30 Capsule 5 Potassium Chloride Terra ER 20 MEQ Oral Tablet Extended Release TAKE ONE TABLET EVERY MORNING AND ATBEDTIME 180 Tablet 2 Folic Acid 1 MG Oral Tablet Take 1 Tablet by mouth in the morning. 90 Tablet 2 Ferrous Sulfate 325 (65 Fe) MG Oral Tablet (Feosol) Take 1 Tablet by mouth daily with breakfast. 90Tablet 1 No current facility-administered medications for this visit. Past Medical History: Diagnosis Date Abnormal electrocardiogram Acute pancreatitis adm x 2 d/t depakote reaction Acute ST elevation myocardial infarction (STEMI) of inferior wall ([facility]) 11/18/2019 Anxiety state Calculus of kidney 08/2015 right, [place] Chest pain Closed fracture of lumbar vertebra ([facility]) COPD (chronic obstructive pulmonary disease) ([facility]) Diabetes mellitus with nephropathy ([facility]) 04/12/2020 Diverticulosis of colon 09/29/05 DM type 2 with diabetic peripheral neuropathy ([facility]) 04/10/2020 Esophageal reflux Gastritis and gastroduodenitis History of subarachnoid hemorrhage 10/04/2020 Hyperglycemia Low testosterone 06/20/2021 Lumbago Major depression, single episode Mixed, or nondependent drug abuse opiates Moderate COPD (chronic obstructive pulmonary disease) ([facility]) 11/2014 Other forms of migraine, without mention of intractable migraine without mention of status migrainosus Other musculoskeletal symptoms referable to limbs(479.89) 11/07/05 Person feigning illness 04/08/06 ER visit Postconcussion syndrome Syncope and collapse 03/21/06 Unspecified drug dependence, unspecified 02/12/05 Past Surgical History: Procedure Laterality Date COLONOSCOPY 07/26/13 biopsies normal EGD, FLEXIBLE, DIAGNOSTIC 07/26/13 biopsies normal EGD, W/ENDOSCOPIC US 06/27/09 done pancreatic parenchymal abnormalities consisting of hyperechoic strands and shadowing s foci in the pancreatic body, very limited exam large amount of food residue in stomach and duodenal bulb FOOT/TOE SURGERY NEC NERVE RPR W/SYNTH CONDUIT OR VEIN ALLOGRAFT Left 12/07/2014 NERVE REPAIR SYNTHETIC CONDUIT OR VEIN ALLOGRAFT EACH NERVE performed by Juancarlos Trinidad MD at OR [facility] OTHER back surgery REPAIR FINGER TENDON, EACH Left 12/07/2014 REPAIR EXTENSOR TENDON FINGER WITHOUT GRAFT performed by Juancarlos Trinidad MD at OR [facility] REPAIR HAND JOINT Left 12/07/2014 REPAIR COLLATERAL LIGAMENT FINGER performed by Juanacrlos Trinidad MD at OR [facility] RPR SPRF WNDS, 7.6 TO 12.6 CM Left 12/07/2014 SIMPLE REPAIR SCALP NECK ETC 7.6 TO 12.6CM performed by Juancarlos Trinidad MD at OR [facility] SPIROMETRY B/A BRONCHODILATOR 11/2014 moderate COPD Review of patient's allergies indicates: Allergen Reactions Cefepime Other reaction(s): rash Daptomycin Other reaction(s): rash Iodinated Contrast Media Anaphylaxis Naloxone Shortness of breath, sweating, and "very ill" Adhesive Tape Fentanyl patch Depakote [Valproic Acid] pancreatitis Fentanyl patch causes rash to skin--can take IV fentanyl Ibuprofen ulcers Other Allergy (See Comments) Neuro complications (Please comment) Patient states he had a reaction to a steroid injection to his back- had hallucinations Tylenol [Acetaminophen] Other (Please comment) Ulcer, pills only IV route no problems Family History Problem Relation Name Age of Onset Musculo-skeletal Disorder Mother back Other (Other) Father anuerysm Other (Natural causes) Father age 79 Breast Cancer Sister Breast Cancer Sister No Known Problems Sister No Known Problems Sister No Known Problems Brother Heart Disorder Grandmother (Maternal) [place] - 80's Heart Disorder Grandfather (Maternal) [place] - 50's Lung Disorder Grandfather (Paternal) COPD Family Status Relation Status Mo Alive Fa Sis Alive Sis Alive Sis Alive Sis Alive Bro Alive MGMA (Not Specified) MGFA (Not Specified) PGFA (Not Specified) Social History Socioeconomic History Marital status: Spouse name: Not on file Number of children: Not on file Years of education: Not on file Highest education level: Not on file Occupational History Occupation: disabled Tobacco Use Smoking status: Every Day Current packs/day: 2.00 Average packs/day: 2.0 packs/day for 32.0 years (64.0 ttl pk-yrs) Types: Cigarettes Passive exposure: Current Smokeless tobacco: Current Types: Chew Tobacco comments: 12/18/20 currently smoking 1 ppd Vaping Use Vaping status: Never Used Substance and Sexual Activity Alcohol use: Not Currently Comment: Hx of DUIs Drug use: Never Comment: opiate dependence Sexual activity: Yes Partners: Female Other Topics Concern Service Not Asked Blood Transfusions No Caffeine Concern Not Asked Occupational Exposure Not Asked Hobby Hazards Not Asked Sleep Concern Not Asked Stress Concern Not Asked Weight Concern Not Asked Special Diet No Back Care Not Asked Exercise Not Asked Bike Helmet Not Asked Seat Belt Yes Comment: most of the time Self-Exams Not Asked Social History Narrative Merged History Encounter disabled Social Needs Financial Resource Strain: Not on file Food Insecurity: No Food Insecurity (03/28/2024) Food Insecurity Do you need food for this week? (Adult - for ages 18 years and over): No Are you able to get enough food for your family? (Household - for ages 0-17 years): Not on file Does your family need food this week? (Household - for ages 0-17 years): Not on file Do you always have enough food for your family? (Household - for ages 0-17 years): Not on file Transportation Needs: Unmet Transportation Needs (03/28/2024) Transportation Needs Do you have trouble getting a ride to medical visits or work? (Adult - for ages 18 years and over):Not on file Does your family have a hard time getting a ride to doctors visits? (Household - for ages 0-17 years): Not on file Has lack of transportation kept you from medical appointments, meetings, work, or from getting things needed for daily living? Check all that apply. (Adult - for ages 18 years and over): Yes, it has kept me from non-medical meetings, appointments, work, or from getting things that I need;Yes, it has kept me from medical appointments Do you (or your family) have trouble finding or paying for a ride (transportation)? (Household - for ages 0-17 years): Not on file Social Connections: Not on file Housing Stability: Low Risk (03/28/2024) Housing Stability Do you currently live in a fdc or have no steady place to sleep at night? (Adult - for ages 18 years and over): Not on file Do you think you are at risk of becoming homeless? (Adult - for ages 18 years and over): Not on file Does your family worry about paying for your home or becoming homeless? (Household - for ages 0-17 years): Not on file Are you homeless or worried that you might be in the future? (Adult - for ages 18 years and over): No Are you (or your family) homeless or worried that you might be in the future? (Household - for ages0-17 years): Not on file Review of Systems Constitutional: Positive for fatigue. Negative for activity change, appetite change, chills, diaphoresis, fever and unexpected weight change. HENT: Positive for congestion (mild occ). Respiratory: Positive for cough. Negative for shortness of breath and wheezing. Cardiovascular: Positive for leg swelling (mild chronic). Negative for chest pain and palpitations. Gastrointestinal: Positive for constipation. Negative for abdominal distention, abdominal pain, diarrhea, nausea and vomiting. Endocrine: Negative. Genitourinary: Negative for dysuria. Musculoskeletal: Positive for arthralgias (knee), back pain, gait problem and joint swelling. Allergic/Immunologic: Positive for environmental allergies. Neurological: Negative for dizziness, weakness and light-headedness. Psychiatric/Behavioral: Positive for sleep disturbance. Negative for agitation, behavioral problemsand dysphoric mood. The patient is nervous/anxious. Objective Wt (!) 385 lb (174.6 kg) | BMI 52.22 kg/m | BSA 2.98 m Physical Exam Constitutional: General: He is not in acute distress. Appearance: Normal appearance. He is obese. He is not ill-appearing, toxic- appearing or diaphoretic. HENT: Head: Normocephalic and atraumatic. Nose: Nose normal. Eyes: Extraocular Movements: Extraocular movements intact. Pulmonary: Effort: Pulmonary effort is normal. No respiratory distress. Breath sounds: Rhonchi present. Neurological: Mental Status: He is alert and oriented to person, place, and time. Psychiatric: Behavior: Behavior normal. ASSESSMENT/PLAN: Complicated UTI (urinary tract infection) (Primary) - CBC WITH WBC DIFFERENTIAL; Future; Expected date: 08/10/2024 - COMPREHENSIVE METABOLIC PANEL; Future; Expected date: 08/10/2024 Chronic pain of right knee - oxyCODONE HCl 10 MG Oral Tablet (Roxicodone); Take 1 Tablet by mouth 2 times a day as needed for Pain, Moderate or Pain, Severe. DM type 2 with diabetic peripheral neuropathy (HCC) - COMPREHENSIVE METABOLIC PANEL; Future; Expected date: 08/10/2024 - Semaglutide(0.25 or 0.5MG/DOS) 2 MG/3ML Solution Pen-injector (Ozempic); Inject 0.25 mg under theskin once a week for 14 days, THEN 0.5 mg once a week. - HEMOGLOBIN A1C; Future; Expected date: 08/10/2024 Diabetes mellitus with nephropathy (HCC) - Semaglutide(0.25 or 0.5MG/DOS) 2 MG/3ML Solution Pen-injector (Ozempic); Inject 0.25 mg under theskin once a week for 14 days, THEN 0.5 mg once a week. Supratherapeutic INR Chronic diastolic heart failure (HCC) Type 2 diabetes mellitus with hemoglobin A1c goal of less than 8.0% ([facility]) - HEMOGLOBIN A1C; Future; Expected date: 08/10/2024 Bronchitis, complicated COPD, group D, by GOLD 2017 classification (HCC) Opioid dependence, uncomplicated (HCC) Other orders - Azithromycin 250 MG Oral Tablet (Zithromax Z-Hector); Take two tablets by mouth on first day, then 1tablet daily until gone Follow Up: Return in about 1 month (around 09/09/2024) for Clinic Visit, Video to Clinic. | For: Clinic Visit, Video to Clinic | Check-out note: Please fax lab orders to mobile lab Pt is scheduled for INR on Aug 14 To get all the blood tests together Lantus 10 unit daily for now Cont all other meds Hydration enough Diet Refilled oxycodone Bronchi - zpak Start ozempic for DM, weight loss Kehinde Mc MD documented in this encounter Plan of Treatment Upcoming Encounters Date Type Department Care Team (Late st Contact Info) Description 08/14/2024 7:10 AM EST Laboratory Lab Mobile Phlebotomy [facility] [address] [place] [address] [facility] Draw [address] [place] [address] 08/15/2024 6:00 AM EST Anticoagulation [facility], [facility] [address] [place] [address] AURELIA Richardson [address] [place] [address] Scheduled Orders Name Type Priority Associated Diagnoses Orde r Schedule CBC WITH WBC DIFFERENTIAL Lab Routine Complicated UTI (urinary tract infection) Expected: 08/10/2024 (Approximate), Expires: 08/10/2025 COMPREHENSIVE METABOLIC PANEL Lab Routine Complicated UTI (urinary tract infection) DM type 2 with diabetic peripheral neuropathy (HCC) Expected: 08/10/2024 (Approximate), Expires: 08/10/2025 HEMOGLOBIN A1C Lab Routine DM type 2 with diabetic peripheral neuropathy (HCC) Type 2 diabetes mellitus with hemoglobin A1c goal of less than 8.0% (HCC) Expected: 08/10/2024 (Approximate), Expires: 08/10/2025 Health Maintenance Due Date Last Done Comments DISCUSS TOBACCO CESSATION (REFER TO SMARTSET #1632) 1970 HIV Screening 1985 Pneumococcal Vaccine: Pediatrics [...] this encounter Medical Devices Implanted Type Area Attending Physician Device Identifier Shelf Expiration Date Model / Serial / Lot Tube Flex 3.0x2.5 [id number] - [id number] Implanted:Qty: 1 on 12/07/2014 by Juancarlos Trinidad MD at [facility] Left: Finger LANDON : ORTHOPAEDICS 11/18/2015 [id number] / / [id number] documented as of this encounter Visit Diagnoses Diagnosis Complicated UTI (urinary tract infection)- Primary Urinary tract infection, site not specified Chronic pain of right knee DM type 2 with diabetic peripheral neuropathy (HCC) Type II or unspecified type diabetes mellitus with neurological manifestations, not stated as uncontrolled Diabetes mellitus with nephropathy (HCC) Type II or unspecified type diabetes mellitus with renal manifestations, not stated as uncontrolled Supratherapeutic INR Abnormal coagulation profile Chronic diastolic heart failure (HCC) Chronic diastolic heart failure Type 2 diabetes mellitus with hemoglobin A1c goal of less than 8.0% (HCC) Bronchitis, complicated Bronchitis, not specified as acute or chronic COPD, group D, by GOLD 2017 classification (HCC) Opioid dependence, uncomplicated (HCC) documented in this encounter Advance Directives [...] (no specific identity) Health Care Power of Electronic Wirer Care Teams Strategic Insights Lead Relationship Specialty Start Date End Date Kehinde Mc MD [address] [place] [address] PCP - General Internal Medicine 03/28/24 documented as of this encounter
--- OUTSIDE RECORDS SUMMARY | 2024-08-29 18:34 | External Medical Summary | Summary of Care ---
Author Name Unknown Organization [facility] Address [address] [place] [address] Phone [phone] Care Team Providers Care Tire Specialist Name Role Phone Kehinde Mc MD Primary Care Provider [phone] Reason for Visit * Reason Onset Date Comments Hospital Follow-Up 08/09/2024 [facility] ([facility]) Encounter Details Date Type Department Care Team (Late st Contact Info) Description 08/09/2024 Telephone [facility] [address] [place] [address] Shahida Rizo RN Hospital Follow-Up ([facility] ([facility])) Allergies Active Allergy Reactions Criticality Noted Date [...] Tablet before bedtime. 04/19/20 Active nystatin (NYSTOP) 188378 UNIT/GM powderIndications:C utaneous candidiasis Apply topically to [...] (HCC),COPD, group D, by GOLD 2017 classification ([facility]) USE 2 PUFFS BY MOUTH EVERY 4 HOURS NEEDED SHORT OF BREATH 6.7 g 5 11/25/19 Active Magnesium Oxide 400 (241.3 Mg) MG Oral TabletIndications:C oronary artery disease involving [place] coronary artery of [place] heart without angina pectoris Take by mouth [...] MG Oral TabletIndications:C oronary artery disease involving [place] coronary artery of [place] heart without angina pectoris TAKE 1 TABLET [...] Tablet 05/30/20 24 Active FreeStyle Js [address] [place] DeviceIndications:T ype 2 diabetes mellitus with hemoglobin [...] Hour (toPROL XL)Indications:Freddie nary artery disease involving [place] coronary artery of [place] heart without angina pectoris TAKE 1 & [...] hemorrhage 10/04/2020 Coronary artery disease invo lving [place] heart without angina pectoris 10/04/2020 COPD, group [...] of kidney 08/20/2015 8 Overview (08/21/2015): right, [place] CT Vitamin D deficiency 01/31/2015 018 Body [...] mRNA, LNP-s, No Pre serve, 2-Dose Series (musiXmatch) 01/02/2021,12/05/2020 DTP Vaccine 07/19/2017,04/03/2014 Hepatitis B, 20+ [...] 03/28/2024 9:07 PM EDT Janice Tanner, ALEXANDER documented in this encounter Miscellaneous Notes * Telephone Encounter - Shahida Rizo, RN - 08/09/2024 9:59 AM EST Transitions of Care Note Reason for Referral:Recent Admission Phone visit for follow up: FARIDA Admitted to: [facility], Date: 07/31/2024 Discharged to: Home with Home services, Date: 08/07/2024 Diagnosis driving hospitalization: Complicated UTI, Constipation, Supratherapeutic INR, Hypertension New medication: Polyethylene glycol Changed medication: Tamsulosin Discontinued medication: Levofloxacin Attempted Phone Call First Attempt Call Outcome Left Voicemail/Message Shahida Rizo RN documented in this encounter Plan of Treatment Upcoming Encounters Date Type Department Care Team (Late st Contact Info) Description 08/10/2024 11:20 AM EST Office Visit [facility] [address] [place] [address] Kehinde Mc MD [address] [place] [address] 08/15/2024 6:00 AM EST Anticoagulation [facility] Services, [address] [place] [address] [place] [address] Health Maintenance Due Date Last Done Comments DISCUSS TOBACCO CESSATION (REFER TO SMARTSET #1435) 1970 HIV Screening 1985 Pneumococcal Vaccine: Pediatrics [...] this encounter Medical Devices Implanted Type Area Bleaching Machine Operator Device Identifier Shelf Expiration Date Model / Serial / Lot Tube Flex 3.0x2.5 [id number] - [id number] Implanted:Qty: 1 on 12/07/2014 by Juancarlos Trinidad MD at [facility] Left: Finger LANDON : ORTHOPAEDICS 11/18/2015 [id number] / / [id number] documented as of this encounter Advance Directives * Full Code (Latest Code Status on File) Date Activated Date Inactivated Comments 03/28/2024 9:05 PM 04/04/2024 7:27 PM This order r eflects the patients [...] (no specific identity) Health Care Power of Managed Services Sales Consultant Care Teams Tire Specialist Relationship Specialty Start Date End Date Kehinde Mc MD [address] [place] [address] PCP - General Internal Medicine 03/28/24 documented as of this encounter
--- OUTSIDE RECORDS SUMMARY | 2024-08-29 18:34 | External Medical Summary | Summary of Care ---
Author Name Unknown Organization [facility] Address [address] [place] [address] Phone [phone] Care Team Providers Care Gamma Operator Name Role Phone Kehinde Mc MD Primary Care Provider [phone] Reason for Visit * Reason Comments Dosage Adjustment Via Phone (anticoag Cl inic) Encounter Details Date Type Department Care Team ([facility] Contact Info) Description 08/08/2024 6:45 AM EST Anticoagulation [facility], Ciera Griffin [address] [place] [address] [place] [address] [place] [address] History of pulmonary embolism* Allergies Active Allergy [...] as of this encounter (statuses as of 08/08/2024) Medications polyethylene glycol 3350 (MIRALAX) 255 gram [...] Tablet before bedtime. 04/19/20 Active nystatin (NYSTOP) 453842 UNIT/GM powderIndications:C utaneous candidiasis Apply topically to [...] MG Oral TabletIndications:C oronary artery disease involving [place] coronary artery of [place] heart without angina pectoris Take by mouth [...] MG Oral TabletIndications:C oronary artery disease involving [place] coronary artery of [place] heart without angina pectoris TAKE 1 TABLET [...] Tablet 05/30/20 24 Active FreeStyle Js 3 [place] DeviceIndications:T ype 2 diabetes mellitus with hemoglobin [...] Hour (toPROL XL)Indications:Freddie nary artery disease involving [place] coronary artery of [place] heart without angina pectoris TAKE 1 & [...] as of this encounter (statuses as of 08/08/2024) Active Problems Problem Noted Date Diagnosed Date [...] hemorrhage 10/04/2020 Coronary artery disease invo lving [place] heart without angina pectoris 10/04/2020 COPD, group [...] as of this encounter (statuses as of 08/08/2024) Resolved Problems Problem Noted Date Diagnosed Date [...] of kidney 08/20/2015 8 Overview (08/21/2015): right, [place] CT Vitamin D deficiency 01/31/2015 018 Body [...] as of this encounter (statuses as of 08/08/2024) Immunizations Name Administration Dates Next Due COVID-19 mRNA, LNP-s, No Pre serve, 2-Dose Series ([employer]) 01/02/2021,12/05/2020 DTP Vaccine 07/19/2017,04/03/2014 Hepatitis B, 20+ [...] Assessment Author Yes 03/28/2024 9:07 PM Janice Henry, ALEXANDER * Because of a physical, mental, [...] documented in this encounter Progress Notes * Keren Sanchez RPh - 08/08/2024 2:19 PM EST Medication Therapy Disease Management - Anticoagulation Patient: Stanton Milner | : 1970 Subjective Contacts Contact Date/Time Type Contact Phone/Fax 08/08/2024 02:19 PM EST Phone (Outgoing) Stanton Milner (Self) [phone] (H) Left Message Patient-Reported Symptoms: Patient Findings Positives: Hospital admission Comments: Pt was discharged from [facility] to home. Pt was admitted for complicated UTI. Pertinent medications changes completed course of Bactrim towards admission. INR at discharge was 1.9. Pt was provided the following directions at discharge: 2-4mg daily as directed Objective Current Warfarin Dose As of 08/08/2024 Warfarin maintenance plan: 2.5 mg (5 mg x 0.5) every Tue, Micki, Sat; 5 mg (5 mg x 1) all other days INR Result As of 08/08/2024 INR goal: 2.0-3.0 INR used for dosing: No new INR was available at the time of this encounter. Assessment & Plan Warfarin Plan As of 08/08/2024 Full warfarin instructions: 2.5 mg every Tue, Micki, Sat; 5 mg all other days Next INR check: 08/14/2024 Repeat PT/INR in 1 week(s) Weekly dose: not changed Additional Dosing Information: Description GML(MTuTh) - pt prefers Tues GML at this time Keren Sanchez RPh Clinical Pharmacist 08/08/2024, 2:19 PM documented in this encounter Plan of Treatment Upcoming Encounters Date Type Department Care Team ([facility] st Contact Info) Description 08/10/2024 11:20 AM EST Office Visit [address] [address] [facility]e Mc [facility] [address] [facility] [address] 08/15/2024 6:00 AM EST Anticoagulation [facility] Clinical [facility], Ciera Griffin [address] [place] [address] [place] [address] [facility], [address] [place] [address] Health Maintenance Due Date Last Done Comments DISCUSS TOBACCO CESSATION (REFER TO SMARTSET #6979) 1970 HIV Screening 1985 Pneumococcal Vaccine: Pediatrics [...] this encounter Medical Devices Implanted Type Area Leather Cleaner Device Identifier Shelf Expiration Date Model / Serial / Lot Tube Flex 3.0x2.5 [id number] - [id number] Implanted:Qty: 1 on 12/07/2014 by Juancarlos Trinidad MD at [facility] Left: Finger LANDON : ORTHOPAEDICS 11/18/2015 [id number] / / [id number] documented as of this encounter Visit Diagnoses [...] specific identity) Health Care Power of Environmental Field Office Manager Care Teams Gamma Operator Relationship Specialty Start Date End Date Kehinde Mc MD [address] [place] [address] PCP - General Internal Medicine 03/28/24 documented as of this encounter
--- OUTSIDE RECORDS SUMMARY | 2024-08-29 18:34 | External Medical Summary | Summary of Care ---
Author Name Unknown Organization [facility] Address [address] [place] [address] Phone [phone] Care Team Providers Care Correction Warden Name Role Phone Kehinde Mc MD Primary Care Provider [phone] Reason for Visit * Reason Onset Date Comments Med Request 08/09/2024 Encounter Details Date Type Department Care Team (Late st Contact Info) Description 08/09/[address] [facility] [address] [place] [address] Kehinde Mc MD [address] [place] [address] Hypokalemia; Iron deficiency anemia due to chronic blood loss Allergies Active Allergy Reactions Criticality Noted Date [...] before bedtime. 04/19/20 22 Active nystatin (NYSTOP) 945124 UNIT/GM powderIndications:C utaneous candidiasis Apply topically to affected area 3 times a day. 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 ([facility]) Place 1 Tab under the [...] MG Oral TabletIndications:C oronary artery disease involving [place] coronary artery of [place] heart without angina pectoris Take [...] less than 8.0% ([facility]) Use 3 times daily as directed 1 Kit 08/31/20 23 Active True Metrix Blood Glucose Test In Vitro Strip (Glucose Blood)Indications:T ype 2 diabetes mellitus with hemoglobin A1c goal of less than 8.0% ([facility]) Use 3 times daily as directed 300 Strip 3 08/31/20 23 Active TRUEplus Lancets 33GIndications:Type 2 diabetes mellitus with hemoglobin A1c goal of less than 8.0% ([facility]) Use 3 times daily as [...] MG Oral TabletIndications:C oronary artery disease involving [place] coronary artery of [place] heart without angina pectoris TAKE [...] Tablet 05/30/20 24 Active FreeStyle Js 3 [place] DeviceIndications:T ype 2 diabetes mellitus with hemoglobin A1c goal of less than 8.0% ([facility]) Use as directed. 1 Each [...] Hour (toPROL XL)Indications:Freddie nary artery disease involving [place] coronary artery of [place] heart without angina pectoris TAKE [...] by mouth in the morning. 30 Tablet 06/26/20 24 Active Omeprazole 20 MG Oral Capsule Delayed Release (PriLOSEC) TAKE ONE CAPSULE BY MOUTH 1 HOUR BEFORE THE 1ST MEAL OF THE DAY 30 Capsule 07/25/20 24 Active Potassium Chloride Terra ER [...] breakfast. 90 Tablet 1 08/10/20 24 Active Ferrous Sulfate 325 (65 Fe) MG Oral Tablet (FEOSOL)Indications :Iron deficiency anemia due to chronic blood loss Take 1 Tab by mouth daily with breakfast. 90 Tab 1 06/20/20 20 024 Discontin ued(Refil l) Folic Acid 1 MG Oral Tablet Take 1 Tablet by mouth in the morning. 90 Tablet 2 04/21/20 23 024 Discontin ued(Refil l) Potassium Chloride Terra ER 20 MEQ Oral Tablet Extended ReleaseIndications: Hypokalemia TAKE ONE TABLET EVERY MORNING AND AT BEDTIME 180 Tablet 2 05/11/20 23 024 Discontin ued(Refil l) documented as of [...] hemorrhage 10/04/2020 Coronary artery disease invo lving [place] heart without angina pectoris 10/04/2020 [...] of kidney 08/20/2015 8 Overview (08/21/2015): right, [place] CT Vitamin D deficiency 01/31/2015 018 Body [...] mRNA, LNP-s, No Pre serve, 2-Dose Series (FanGager (MyBrandz)) 01/02/2021,12/05/2020 DTP Vaccine 07/19/2017,04/03/2014 Hepatitis B, 20+ [...] Telephone Encounter - Kehinde Mc MD - 08/10/2024 7:31 AM ESTSigned Prescriptions: Disp Refills Potassium Chloride Terra ER 20 MEQ Oral Tab*180 Ta*2 Sig: TAKE ONE TABLET EVERY MORNING AND AT BEDTIME Authorizing Provider: KEHINDE MC Folic Acid 1 MG Oral Tablet 90 Tab*2 Sig: Take 1 Tablet by mouth in the morning. Authorizing Provider: KEHINDE MC Ferrous Sulfate 325 (65 Fe) MG Oral Tablet*90 Tab*1 Sig: Take 1 Ta blet by mouth daily with breakfast. Authorizing Provider: KEHINDE MC * Telephone Encounter - Shahida Rizo RN - 08/09/2024 2:19 PM EST Provider to address: Patient called for FARIDA. Discharged from [facility] 08/07/2024 with Complicated UTI Patient requesting refills for Potassium, Magnesium, Folic Acid and Ferrous Sulfate FYI - Patient is taking Furosemide 40 mg BID noted on epic med list, and is not taking the Torsemide noted on [facility] Discharge med list. Patient is also asking if his dose of Gabapentin can be increased, feet have pins and needles at night. Patient has PCP follow up visit 08/10/2024 Reason for Call: Med Request Contact: Telephone Call Contact Type: Medication Provider In-Basket: No Outcome: See above Face to face time spent with Patient (minutes): 0 Total Time including non face to face (minutes): 10 documented in this encounter Plan of Treatment Upcoming Encounters Date Type Department Care Team (Late st Contact Info) Description 08/10/2024 11:20 AM EST Telemedicine [place] [address] [place] [address] Kehinde Mc MD [address] [place] [address] 08/14/2024 7:10 AM EST Laboratory Lab Mobile Phlebotomy [facility] [address] [facility] [place] [address] Mvmg, Gml Mobile Home Draw [address] [facility] [place] [address] 08/15/2024 6:00 AM EST Anticoagulation Central[facility] Clinical Pharmacy Services, Ciera Griffin [address] [place] [address] [place] [address] [place] [address] Health Maintenance Due Date Last Done Comments DISCUSS TOBACCO CESSATION (REFER TO SMARTSET #2447) 1970 HIV Screening 1985 Pneumococcal Vaccine: Pediatrics [...] this encounter Medical Devices Implanted Type Area Auctioneer Automobile Device Identifier Shelf Expiration Date Model / Serial / Lot Tube Flex 3.0x2.5 [id number] - [id number] Implanted:Qty: 1 on 12/07/2014 by Juancarlos Trinidad MD at [facility] Left: Finger LANDON : ORTHOPAEDICS 11/18/2015 [id number] / / [id number] documented as of this encounter Visit Diagnoses Diagnosis Hypokalemia Hypopotassemia Iron deficiency anemia due to chronic blood loss Iron deficiency anemia secondary to blood loss (chronic) documented in this encounter Advance Directives * [...] (no specific identity) Health Care Power of Statistics Professor Care Teams Correction Warden Relationship Specialty Start Date End Date Kehinde Mc MD [address] [facility] [place] [address] PCP - General Internal Medicine 03/28/24 documented as of this encounter
--- OUTSIDE RECORDS SUMMARY | 2024-08-29 18:35 | External Medical Summary | Summary of Care ---
Author Name Unknown Organization [facility] Address [address] [place] [address] Phone [phone] Care Team Providers Care Telecommunications Engineer Name Role Phone Kehinde Mc MD Primary Care Provider [phone] Reason for Visit * Reason Onset Date Comments No Show 05/07/2024 [facility] No Show Auto mation Encounter Details Date Type Department Care Team (Late st Contact Info) Description 05/07/2024 Telephone [facility] [address] [place] [address] Kehinde Mc MD [address] [place] [address] No Show ([place] No Show Automation) Allergies Active Allergy Reactions Criticality Noted Date [...] as of this encounter (statuses as of 08/06/2024) Medications polyethylene glycol 3350 (MIRALAX) 255 gram [...] before bedtime. 04/19/20 22 Active nystatin (NYSTOP) 436867 UNIT/GM powderIndications:C utaneous candidiasis Apply topically to [...] MG Oral TabletIndications:C oronary artery disease involving [place] coronary artery of [place] heart without angina pectoris Take by [...] Solution (Duoneb)Indications :COPD, severity to be determined ([facility]),Wheezing Inhale 3 mL via nebulizer [...] MG Oral TabletIndications:C oronary artery disease involving [place] coronary artery of [place] heart without angina pectoris TAKE 1 TABLET BY MOUTH IN THE MORNING. 30 Tablet 5 04/28/20 24 Active documented as of this encounter (statuses as of 08/06/2024) Active Problems Problem Noted Date Diagnosed Date [...] hemorrhage 10/04/2020 Coronary artery disease invo lving [place] heart without angina pectoris 10/04/2020 COPD, [...] as of this encounter (statuses as of 08/06/2024) Resolved Problems Problem Noted Date Diagnosed Date [...] of kidney 08/20/2015 8 Overview (08/21/2015): right, [place] CT Vitamin D deficiency 01/31/2015 018 Body [...] as of this encounter (statuses as of 08/06/2024) Immunizations Name Administration Dates Next Due COVID-19 mRNA, LNP-s, No Pre serve, 2-Dose Series (Tenrox) 01/02/2021,12/05/2020 DTP Vaccine 07/19/2017,04/03/2014 Hepatitis B, 20+ [...] encounter Miscellaneous Notes * Telephone Encounter - [place], No Show - 05/07/2024 2:45 PM EDT Dear Stanton Milner, Looks like you missed an appointment with KEHINDE INGRIS on 05/04/2024 at 02:00 PM. If you haven't already rescheduled, you have a couple of options: Reschedule in [employer]scheduling Call us at [phone] Can't make a future appointment? Cancel and let someone else have your spot! It's easy to do via AwoX or by calling us. Thanks for trusting [facility] with your care. We hope to see you back in our office soon. Sincerely, YESENIACHRISTOPH INGRIS Electronically signed by [facility], No Show at 05/07/2024 2:46 PM EDT documented in this encounter Plan of Treatment Upcoming Encounters Date Type Department Care Team (Late st Contact Info) Description 08/07/2024 6:45 AM EST Anticoagulation [facility] Clinical Pharm[facility] Services, Ciera Griffin [address] [place] [address] [place] [address] [place] [address] 08/07/2024 11:40 AM EST Office Visit [facility] [address] [place] [address] Kehinde Mc MD [address] [place] [address] Health Maintenance Due Date Last Done Comments DISCUSS TOBACCO CESSATION (REFER TO SMARTSET #7776) 1970 HIV Screening 1985 Pneumococcal Vaccine: Pediatrics [...] this encounter Medical Devices Implanted Type Area Rubber Mold Maker Device Identifier Shelf Expiration Date Model / Serial / Lot Tube Flex 3.0x2.5 [id number] - [id number] Implanted:Qty: 1 on 12/07/2014 by Juancarlos Trinidad MD at [facility] Left: Finger LANDON : ORTHOPAEDICS 11/18/2015 [id number] / / [id number] documented as of this encounter Advance Directives [...] (no specific identity) Health Care Power of Inside Technical Sales Representative Care Teams Telecommunications Engineer Relationship Specialty Start Date End Date Kehinde Mc MD [address] [place] [address] PCP - General Internal Medicine 03/28/24 documented as of this encounter
--- OUTSIDE RECORDS SUMMARY | 2024-08-29 18:35 | External Medical Summary | Summary of Care ---
Author Name Unknown Organization [facility] Address [address] [place] [address] Phone [phone] Care Team Providers Care Senior Web Designer Name Role Phone Kehinde Mc MD Primary Care Provider [phone] Reason for Visit * Reason Comments Dosage Adjustment Via Phone (anticoag Cl inic) Encounter Details Date Type Department Care Team ([facility] Contact Info) Description 08/07/2024 6:45 AM EST Anticoagulation [facility], Ciera Griffin [address] [place] [address] [place] Richardson [id number] [place] [address] History of pulmonary embolism* Allergies Active Allergy [...] as of this encounter (statuses as of 08/07/2024) Medications polyethylene glycol 3350 (MIRALAX) 255 gram [...] before bedtime. 04/19/20 22 Active nystatin (NYSTOP) 861331 UNIT/GM powderIndications:C utaneous candidiasis Apply topically to [...] MG Oral TabletIndications:C oronary artery disease involving ramona coronary artery of ramona heart without angina pectoris Take by mouth [...] MG Oral TabletIndications:C oronary artery disease involving ramona coronary artery of ramona heart without angina pectoris TAKE 1 TABLET [...] Tablet 05/30/20 24 Active FreeStyle Js 3 [place] DeviceIndications:T ype 2 diabetes mellitus with hemoglobin [...] Hour (toPROL XL)Indications:Freddie nary artery disease involving ramona coronary artery of ramona heart without angina pectoris TAKE 1 & [...] as of this encounter (statuses as of 08/07/2024) Active Problems Problem Noted Date Diagnosed Date [...] hemorrhage 10/04/2020 Coronary artery disease invo lving ramona heart without angina pectoris 10/04/2020 COPD, group [...] as of this encounter (statuses as of 08/07/2024) Resolved Problems Problem Noted Date Diagnosed Date [...] of kidney 08/20/2015 8 Overview (08/21/2015): right, [place] CT Vitamin D deficiency 01/31/2015 018 Body [...] as of this encounter (statuses as of 08/07/2024) Immunizations Name Administration Dates Next Due COVID-19 mRNA, LNP-s, No Pre serve, 2-Dose Series ([employer]) 01/02/2021,12/05/2020 DTP Vaccine 07/19/2017,04/03/2014 Hepatitis B, 20+ [...] Progress Notes * Keren Sanchez RPh - 08/07/2024 4:14 PM EST Pt in process of discharging from [facility]. Will follow up tomorrow once home. Keren Sanchez Rph, Pharm.D. Clinical Pharmacist [facility] ([facility]) [phone] 08/07/2024,4:15 PM documented in this encounter Plan of Treatment Upcoming Encounters Date Type Department Care Team (Late st Contact Info) Description 08/08/2024 6:45 AM EST Anticoagulation [facility] Clinical Pharmacy Services, [address] [place] [address] [facility], [address] [place] [address] 08/10/2024 11:20 AM EST Office Visit [place] [address] [place] [id number] Kehinde Mc MD [address] [place] [address] Health Maintenance Due Date Last Done Comments DISCUSS TOBACCO CESSATION (REFER TO SMARTSET #8003) 1970 HIV Screening 1985 Pneumococcal Vaccine: Pediatrics [...] this encounter Medical Devices Implanted Type Area Process Design Engineer Device Identifier Shelf Expiration Date Model / Serial / Lot Tube Flex 3.0x2.5 [id number] - [id number] Implanted:Qty: 1 on 12/07/2014 by Juancarlos Trinidad MD at [facility] Left: Finger [employer]ANDON : ORTHOPAEDICS 11/18/2015 [id number] / / [id number] documented as of this encounter Visit Diagnoses [...] (no specific identity) Health Care Power of Coder Care Teams Senior Web Designer Relationship Specialty Start Date End Date Kehinde Mc MD [address] [place] [address] PCP - General Internal Medicine 03/28/24 documented as of this encounter
--- OUTSIDE RECORDS SUMMARY | 2024-08-29 18:36 | External Medical Summary | Summary of Care ---
Author Name Unknown Organization [facility] Address [address] [place] [address] Phone [phone] Care Team Providers Care Workday Senior Associate Name Role Phone Kehinde Mc MD Primary Care Provider [phone] Reason for Visit * Reason Comments Dosage Adjustment Via Phone (anticoag Cl inic) Encounter Details Date Type Department Care Team ([facility] Contact Info) Description 08/02/2024 6:00 AM EST Anticoagulation [facility], Ciera Griffin [address] [place] [address] [place] Richardson [address] [facility] [place] [address] Anticoagulation management encounter*; History of pulmonary embolism [...] as of this encounter (statuses as of 08/02/2024) Medications polyethylene glycol 3350 (MIRALAX) 255 gram [...] Tablet before bedtime. 04/19/20 Active nystatin (NYSTOP) 205953 UNIT/GM powderIndications:C utaneous candidiasis Apply topically to [...] MG Oral TabletIndications:C oronary artery disease involving [place] coronary artery of [place] heart without angina pectoris Take by mouth [...] MG Oral TabletIndications:C oronary artery disease involving [place] coronary artery of [place] heart without angina pectoris TAKE 1 TABLET BY MOUTH IN THE MORNING. 30 Tablet 5 04/28/20 24 Active glipiZIDE 10 MG Oral Tablet (Glucotrol)Indicati ons:Diabetes mellitus with nephropathy (HCC) TAKE ONE TABLET BY MOUTH 2 TIMES A DAY 30 MINUTES BEFORE MEALS 180 Tablet 05/16/20 24 Active Atorvastatin Calcium 80 MG [...] Tablet 05/30/20 24 Active FreeStyle Js 3 [place] DeviceIndications:T ype 2 diabetes mellitus with hemoglobin A1c goal of less than 8.0% ([facility]) Use as directed. 1 Each 05/30/20 24 [...] Hour (toPROL XL)Indications:Freddie nary artery disease involving [place] coronary artery of [place] heart without angina pectoris TAKE 1 & [...] as of this encounter (statuses as of 08/02/2024) Active Problems Problem Noted Date Diagnosed Date [...] hemorrhage 10/04/2020 Coronary artery disease invo lving k[place] heart without angina pectoris 10/04/2020 COPD, group [...] as of this encounter (statuses as of 08/02/2024) Resolved Problems Problem Noted Date Diagnosed Date [...] of kidney 08/20/2015 8 Overview (08/21/2015): right, [place] CT Vitamin D deficiency 01/31/2015 018 Body [...] as of this encounter (statuses as of 08/02/2024) Immunizations Name Administration Dates Next Due COVID-19 mRNA, LNP-s, No Pre serve, 2-Dose Series ([employer]) 01/02/2021,12/05/2020 DTP Vaccine 07/19/2017,04/03/2014 Hepatitis B, 20+ [...] Progress Notes * Keren Sanchez RPh - 08/02/2024 10:53 AM EST Noted, pt currently admitted to [facility]. ACC will follow up at discharge Keren Sanchez Rph, Pharm.D. Clinical Pharmacist [facility] ([facility]) [phone] 08/02/2024,10:53 AM * Delilah Boland CPhT - 08/01/2024 3:16 PM EST Patient marked no show by GML, with a note stating he is currently admitted. Please advise. KEVIN MENDOZA 08/01/2024 5:46 AM admitted Thank you, Delilah Boland CPhT Special Effects Makeup Artist II [facility] ([facility]) 08/01/2024,3:17 PM documented in this encounter Plan of [...] this encounter Medical Devices Implanted Type Area Sound Recording Technician Device Identifier Shelf Expiration Date Model / Serial / Lot Tube Flex 3.0x2.5 [id number] - [id number] Implanted:Qty: 1 on 12/07/2014 by Juancarlos Trinidad MD at [facility] Left: Finger [employer]NADON : ORTHOPAEDICS 11/18/2015 [id number] / / [id number] documented as of this encounter Visit Diagnoses [...] (no specific identity) Health Care Power of Personal Service Representative Care Teams Workday Senior Associate Relationship Specialty Start Date End Date Kehinde Mc MD [address] [place] [facility] [place] [address] PCP - General Internal Medicine 03/28/24 documented as of this encounter
--- OUTSIDE RECORDS SUMMARY | 2024-08-29 18:36 | External Medical Summary | Summary of Care ---
Author Name Unknown Organization [facility] Address [address] [place] [address] Phone [phone] Care Team Providers Care Local Government Legislator Name Role Phone Kehinde Mc MD Primary Care Provider Reason for Visit * Reason Comments Dosage Adjustment Via Phone (anticoag Cl inic) Encounter Details Date Type Department Care Team ([facility] Contact Info) Description 08/04/2024 6:45 AM EST Anticoagulation [facility], Ciera Griffin [address] [place] [address] [place] [address] [place] [address] History of pulmonary embolism* Allergies Active Allergy [...] as of this encounter (statuses as of 08/04/2024) Medications polyethylene glycol 3350 (MIRALAX) 255 gram [...] before bedtime. 04/19/20 22 Active nystatin (NYSTOP) 160349 UNIT/GM powderIndications:C utaneous candidiasis Apply topically to [...] MG Oral TabletIndications:C oronary artery disease involving cherokee coronary artery of cherokee heart without angina pectoris Take by mouth [...] MG Oral TabletIndications:C oronary artery disease involving cherokee coronary artery of cherokee heart without angina pectoris TAKE 1 TABLET [...] Tablet 05/30/20 24 Active FreeStyle Js 3 [place] DeviceIndications:T ype 2 diabetes mellitus with hemoglobin A1c goal of less than 8.0% ([facility]) Use as directed. 1 Each 05/30/20 [...] Hour (toPROL XL)Indications:Freddie nary artery disease involving cherokee coronary artery of cherokee heart without angina pectoris TAKE 1 & [...] as of this encounter (statuses as of 08/04/2024) Active Problems Problem Noted Date Diagnosed Date [...] 01/24/2021 Opioid dependence, uncomplicated 01/22/2021 History of [place] (myocardial infarction) 01/22/2021 Morbid obesity with BMI of 50.0-59.9, adult 09/20 History of subdural hematoma 10/04/2020 Gastroesophageal reflux disease without esophagi tis 10/04/2020 History of subarachnoid hemorrhage 10/04/2020 Coronary artery disease invo lving cherokee heart without angina pectoris 10/04/2020 COPD, group [...] as of this encounter (statuses as of 08/04/2024) Resolved Problems Problem Noted Date Diagnosed Date [...] of kidney 08/20/2015 8 Overview (08/21/2015): right, [place] CT Vitamin D deficiency 01/31/2015 [...] as of this encounter (statuses as of 08/04/2024) Immunizations Name Administration Dates Next Due COVID-19 mRNA, LNP-s, No Pre serve, 2-Dose Series ([employer]) 01/02/2021,12/05/2020 DTP Vaccine 07/19/2017,04/03/2014 Hepatitis B, 20+ [...] Progress Notes * Keren Sanchez RPh - 08/04/2024 12:21 PM EST Pt remains admitted to [facility]. Per CM notes, possible d/c this . ACC will follow up Wednesday. Keren Sanchez Rph, Pharm.D. Clinical Pharmacist [facility] ([facility]) [phone] 08/04/2024,12:21 PM documented in this encounter Plan of Treatment Upcoming Encounters Date Type Department Care Team (Late st Contact Info) Description 08/07/2024 11:40 AM EST Office Visit [facility] [address] [place] [address] Kehinde Mc MD [address] [place] [address] Health Maintenance Due Date Last Done Comments DISCUSS TOBACCO CESSATION (REFER TO SMARTSET #0044) 1970 HIV Screening 1985 Pneumococcal Vaccine: Pediatrics [...] shot) (#1) 2024 08/26/2013 HbA1c 11/15/2024 05/15/2024, 07/04/2024, 03/19/2022, Additional history exists Diabetic Foot Exam [...] this encounter Medical Devices Implanted Type Area Prop Setter Device Identifier Shelf Expiration Date Model / Serial / Lot Tube Flex 3.0x2.5 [id number] - [id number] Implanted:Qty: 1 on 12/07/2014 by Juancarlos Trinidad MD at [facility] Left: Finger LANDON : ORTHOPAEDICS 11/18/2015 [id number] / / [id number] documented as of this encounter Visit Diagnoses [...] specific identity) Health Care Power of Production Tech Care Teams Local Government Legislator Relationship Specialty Start Date End Date Kehinde Mc MD [address] [place] [address] PCP - General Internal Medicine 03/28/24 documented as of this encounter
[2024-08-29] MEDS: CYCLOBENZAPRINE HCL 10 MG TAB PO PRN (21:18)
[2024-08-29] MEDS: ATORVASTATIN 40 MG TAB PO SCH (21:18)
[2024-08-29] MEDS: POLYETHYLENE (MIRALAX) 17 GM PACK PO PRN (22:03)
[2024-08-29] MEDS: cefTRIAXone SODIUM 2,000 MG/50 ML BAG IV SCH (22:12)
[2024-08-29] MEDS: ACETAMINOPHEN 1,000 MG/100 ML VIAL IV STA (23:47)
[2024-08-30] MEDS: DICLOFENAC SOD 1% GEL 100 GM TUBE EXT PRN (01:39)
[2024-08-30 07:52] LABS: Hematocrit (blood only) 42.3 % (42.0-52.0); Hemoglobin 13.5 g/dl (14.0-18.0); Mean Corpuscular Hemoglobin 24.5 pg (25.0-34.0); Mean Corpuscular Hgb Conc 31.9 g/dL (32.0-36.0); Mean Corpuscular Volume 76.8 fL (80.0-100.0); Mean Platelet Volume 10.5 fL (9.4-12.4); Platelet Count 239 K/uL (130-400); RDW Coefficient of Variation 19.9 % (11.5-14.5); RDW Standard Deviation 52.6 fL (36.4-46.3); Red Blood Count 5.51 M/uL (4.70-6.10)
[2024-08-30 08:04] LABS: BUN Creatinine Ratio 13.2 (10-20); Calcium 9.6 mg/dl (8.6-10.3); Creatinine Clr Calc Pharmacy 107.3 ml/min; Magnesium 1.8 mg/dl (1.7-2.4); Phosphorus 3.3 mg/dl (2.5-4.9); Potassium 3.2 mmol/L (3.5-5.1)
[2024-08-30 08:18] LABS: INR 1.1 (0.9-1.1); Prothrombin Time 11.6 Seconds (9.0-12.0)
[2024-08-30] MEDS: POTASSIUM CHLORIDE CRTAB 20 MEQ TABCR PO STA (08:40)
[2024-08-30] MEDS: METOCLOPRAMIDE HCL INJ 5 MG/ML 2 ML VIAL IV ONE (08:57)
--- NOTE | 2024-08-30 10:58 | Gastroenterology Progress Note ---
Date of Service August 30, 2024 Assessment & Plan (1) Vomiting: Plan: Patient has had no further vomiting. - Will stop protonix drip at this time and transition to 40mg bid. - He was taking two different PPIs as an outpatient. we discussed on discharged that he should stop omeprazole and just start protonix 40mg po bid. Admission and Anticipated Discharge Date Admission Date: August 29, 2024 Supervising Physician Co-Signing Physician Notes I examined the patient and reviewed patient's chart , laboratory data and imaging studies. I agree with with assessment and plan of care as suggested by advanced practice provider. Will sign off and see as needed. Subjective He has not had further vomiting and he feels the vomiting he did have was secondary to his UTI. he has not had any melena/brbpr. he tells me that he overall feels well from a GI standpoint. His main concern is his frequent UTIs. Review of Systems Review of Systems: All systems reviewed & are unremarkable except as noted in HPI & below Physical Exam Constitutional: WD/WN, vitals as above Respiratory: normal respiratory effort, lungs clear to auscultation Cardiovascular: Rate/Rhythm: regular rate and regular rhythm Gastrointestinal (Abdomen): normal bowel sounds, soft, nontender, no hepatosplenomegaly Psychiatric: Orientation: alert and oriented x 3 Affect: euthymic affect Results & Data Results & Data Vital Signs (Past 12 Hours) Vital Signs Temp Pulse Pulse Resp BP Pulse Ox O2 Del Method 08/30/24 07:32 98.1 F 77 18 110/68 96 Room Air 08/30/24 07:18 72 15 94 Room Air 08/30/24 06:10 58 L 08/30/24 04:04 97.5 F L 70 18 113/63 92 Nasal Cannula 08/29/24 23:17 98.4 F 21 123/70 94 Room Air O2 Flow Rate FiO2 08/30/24 07:32 08/30/24 07:18 21 08/30/24 06:10 08/30/24 04:04 4 08/29/24 23:17 Coding Level of Care Code 59855 SUB INP/OBS CARE 2/35MIN Diagnoses Vomiting R11.10
--- NOTE | 2024-08-30 11:36 | Cardiology Progress Note ---
Date of Service August 30, 2024 Assessment & Plan (1) Coffee ground emesis: (2) Acute UTI: Plan: 54-year-old morbidly obese male with history of chronic indwelling Lloyd catheter and chronic right heart failure presents with concerns of recent lethargy and coffee-ground emesis. EKG performed on arrival yesterday revealed heart rate which was mildly elevated compared to his usual baseline, chronic findings of incomplete right bundle branch block, and T wave inversions in the anterior leads, subtle ST segment depression in the lateral leads. He had a nonischemic dobutamine stress echocardiogram in 2018. The patient is on chronic anticoagulation with Coumadin due to his history of pulmonary embolism and Coumadin is on hold at present. GI input noted and appreciated. Agree with Protonix infusion and observation. Serial troponin levels negative x 3. Repeat EKG on 08/29/24 reveals RBBB and non specific repolarization changes. Will supplement potassium. Volume status is well controlled. No additional cardiac testing indicated. Admission and Anticipated Discharge Date Admission Date: August 29, 2024 Subjective Patient seen in cardiology follow up. Denies cardiac complaints, no chest pain, no shortness of breath. Volume status stable. No additional emesis. Mental status back to baseline. Telemetry reveals SR in the 70s. Average resting HR improved compared to admission , had been 80s to 90s. Physical Exam Constitutional: WD/WN, vitals as above Eyes: PERRL, conjunctivae normal, anicteric sclerae Respiratory: normal respiratory effort, lungs clear to auscultation Cardiovascular: Rate/Rhythm: regular rate and regular rhythm Heart Sounds: no murmur Vessels: no JVD Extremities: + edema (trace chronic LE edema, chronic venous stasis changes ) Gastrointestinal (Abdomen): normal bowel sounds, soft, nontender, no hepatosplenomegaly Neurologic: PERRL, EOMI, accommodation nl, no face palsy, no dysarthria Results & Data Vital Signs (Past 12 Hours) Vital Signs Temp Pulse Pulse Resp BP Pulse Ox O2 Del Method 08/30/24 11:00 Room Air 08/30/24 07:32 36.7 C 77 18 110/68 96 Room Air 08/30/24 07:18 72 15 94 Room Air 08/30/24 06:10 58 L 08/30/24 04:04 36.4 C L 70 18 113/63 92 Nasal Cannula O2 Flow Rate FiO2 08/30/24 11:00 08/30/24 07:32 08/30/24 07:18 21 08/30/24 06:10 08/30/24 04:04 4
--- NOTE | 2024-08-30 15:33 | Hospitalist Progress Note ---
Date of Service August 30, 2024 Assessment & Plan (1) Coffee ground emesis: Plan: 54-year-old male with past medical history significant for COPD, morbid obesity, type 2 diabetes, chronic diastolic heart failure, History of CAD/STEMI per records,hypertension, hyperlipidemia, history of PE on Coumadin, mood disorder, medication noncompliance, current active smoker, chronic opioid abuse, chronic indwelling Lloyd catheter, history of subdural hematoma, history of subarachnoid hemorrhage, history of iron deficiency anemia, depression with anxiety, venous insufficiency, Chronic pain on buprenorphine, drug-seeking behavior per records, history of MRSA/VRE and multiple recurrent admissions presents with coffee- ground emesis. Patient states last 3 to 4 days he was very drowsy and family found difficult to arouse him possibly from UTI per patient and finally woke up yesterday. Did not eat much. Today had multiple episodes of coffee-ground emesis which prompted him to come to the ER. Has some abdominal discomfort. Did not moved his bowels for last few days. Still has some nausea. Denies chest pain or shortness of breath. Denies fevers. Denies headache. Vision is okay. No runny nose or sore throat. No cough. Ambulating with a cane. Curr ently resting comfortably and hemodynamically stable. Coffee-ground emesis Hemoglobin stable, 14.6 on admission Patient on Coumadin and INR was 2.2 on admission Held Coumadin, s/p one dose of vitamin K 2.5 mg IV ppi initially currently on po GI consulted, recommended/stated the following: "Patient has had no further vomiting. Will stop protonix drip at this time and transition to 40mg bid. He was taking two different PPIs as an outpatient. we discussed on discharged that he should stop omeprazole and just start protonix 40mg po bid. " Continue to monitor H/H Currently stable Abnormal EKG EKG on admission with noted normal sinus rhythm, RBBB, diffuse nonspecific ST elevations as well as T wave inversions Troponinx3 normal/ unremarkable Echo was technically difficult. However it noted no pericardial effusion and that the left ventricle size and EF was normal. Right ventricle was not seen and no comment could be made on the valves or their function Serial EKGs Cardiology consulted, recommended/stated the following: - no cardiac testing warranted at this time. Continue to monitor on telemetry CAUTI UTI complicated Chronic indwelling Lloyd catheter History of recurrent UTIs UA repeated, urine Cx from admission recommending repeat collection Continue IV Rocephin Will follow cultures Follow-up with urology- patient requesting to have catheter replaced. States that it was last placed by nursing incorrectly and had to be replaced at the last admission by urology. Nose lesion patient notes a recent history of trauma to the nose Notes persistent erythematous area on bridge of nose on the right where his glasses sits Concern for infection, as needed mupirocin ordered Concern for inflammation, as needed hydrocortisone ordered Patient notes that he is concerned about using the topical treatments as they can smear his glasses Morbid obesity DARIA Use oxygen 4 L in the nighttime States currently on Ozempic for the last 3 weeks History of COPD Continue home inhalers and nebs Chronic diastolic CHF Continue home diuretics with potassium and magnesium supplements Getting gentle fluids Monitor for volume overload History of CAD Holding aspirin for GI bleed and restart as soon as possible Continue beta-nasim, Imdur and statin aspirin resumed to restart on 08/31/2024 History of PE Held Coumadin for above given GI recs, warfarin scheduled to resume on 08/31/2024 Chronic pain On buprenorphine And oxycodone as needed given patient tolerating p.o., will defer on IV Tylenol at this time Hypertension On beta-nasim and Imdur and diuretics We will monitor Diabetes Hold p.o. medications Insulin sliding scale We will monitor Ongoing tobacco abuse Encourage cessation Diet: DMII DVT prophylaxis: SCDs for now, to reume warfarin on 08/31 Dispo: Home once medically stable Admission and Anticipated Discharge Date Admission Date: August 29, 2024 Subjective Patient was seen sitting up in bed extensive discussion about his use of Ozempic and current weight loss Concerned about lesion on his nose where his glasses sits. Discussion of treatment, concerned that he might get his glasses smeared Also asking about IV Tylenol would like to take a shower Denies any further episodes of coffee-ground emesis 1 episode of nausea this morning Review of Systems Review of Systems: All systems reviewed & are unremarkable except as noted in Subjective Physical Exam Physical Exam: General: Alert, oriented. No acute distress Psych: Appropriate mood and affect HEENT: NC/AT, red area on nose CV: RRR Resp: Breath sounds clear bilaterally, no increased effort of breathing Abdomen: Soft, nontender Extremities: chronic skin changes noted on lower extremities bilaterally. Results & Data Results & Data Vital Signs (Past 12 Hours) Vital Signs Temp Pulse Pulse Resp BP Pulse Ox O2 Del Method 08/30/24 13:00 93 H 08/30/24 11:33 37.1 C 78 19 155/75 H 94 Room Air 08/30/24 11:00 Room Air 08/30/24 07:32 36.7 C 77 18 110/68 96 Room Air 08/30/24 07:18 72 15 94 Room Air 08/30/24 06:10 58 L 08/30/24 04:04 36.4 C L 70 18 113/63 92 Nasal Cannula O2 Flow Rate FiO2 08/30/24 13:00 08/30/24 11:33 08/30/24 11:00 08/30/24 07:32 08/30/24 07:18 21 08/30/24 06:10 08/30/24 04:04 4 Diagnostic Findings Abdomen/Pelvis CT 08/28/24 18:31 Exam(s): CT ABDOMEN + PELVIS Without Contrast EXAM: CT Abdomen and Pelvis Without Intravenous Contrast CLINICAL HISTORY: Reason for exam: abd pain, vomiting dark material. TECHNIQUE: Axial computed tomography images of the abdomen and pelvis without intravenous contrast. CTDI is 34 mGy and DLP is 1736 mGy-cm. Automated exposure control was utilized for the study. A dose lowering technique was utilized adhering to the principles of ALARA. COMPARISON: No relevant prior studies available. FINDINGS: ABDOMEN: Liver: Unremarkable. Gallbladder and bile ducts: Unremarkable. Pancreas: Unremarkable. Spleen: Unremarkable. Adrenals: Unremarkable. Kidneys and ureters: Unremarkable. No obstructing stones. No hydronephrosis. Stomach and bowel: No bowel obstruction. No inflammatory changes. PELVIS: Appendix: Status post appendectomy. Bladder: Llyod catheter within the bladder. Reproductive: Unremarkable as visualized. ABDOMEN and PELVIS: Intraperitoneal space: Unremarkable. No free air. No significant fluid collection. Bones/joints: No acute fracture. Soft tissues: Small fat-containing umbilical hernia. Vasculature: Unremarkable. Lymph nodes: Unremarkable. IMPRESSION: No acute findings in the abdomen or pelvis. Electronically signed by: Jovon Almanzar MD 08/28/24 22:51 PM Chest X-Ray 08/28/24 18:31 EXAM: Radiograph of the Chest 1 View INDICATION: Vomiting and abdominal pain. TECHNIQUE: Frontal view of the chest. COMPARISON: 07/31/2024 FINDINGS: Lungs and pleural spaces: Stable small pleural effusions and mild pulmonary vascular congestion. No confluent consolidation. No pneumothorax. Heart: Stable cardiomegaly. Loop recorder present. Mediastinum: Normal contour. Bones/joints: Degenerative changes noted throughout the spine. No acute osseous abnormality seen. Soft tissues: No abnormality noted. No radiopaque foreign body noted. Upper abdomen: No free intraperitoneal air subjacent to the diaphragms. IMPRESSION: Stable small pleural effusions and mild pulmonary vascular congestion. ACT 112: Negative or not required by law. Electronically signed by Rachel Morgan 08-28-2024 6:54 PM
[2024-08-30] MEDS ORDERED: MUPIROCIN 2% OINT 22 GM TUBE EXT PRN (17:24)
[2024-08-30] MEDS: HYDROCORTISONE 1% CRM 30 GM TUBE EXT PRN (17:55)
[2024-08-30 19:40] LABS: Appearance Urine Clear (Clear); Bacteria Urine Automated 1+ (None Seen); Bilirubin Urine Negative (Negative); Blood Urine Trace (Negative); Color Urine Yellow; Epithelial Cell Urine Auto 0-2 /hpf (0-2); Glucose Urine UA Negative (Negative); Ketones Urine Negative (Negative); Leukocyte Esterase Urine 1+ (Negative); Nitrite Urine Negative (Negative); Protein Urine Negative (Negative); Specific Gravity Urine 1.014 (1.000-1.030); Urobilinogen Urine Negative (Negative)
[2024-08-30] MEDS: guaiFENesin 600 MG TABCR PO SCH (21:31)
[2024-08-30] MEDS: PANTOprazole 40 MG TAB PO SCH (22:41)
[2024-08-31 07:41] LABS: Basophils # (auto) 0.11 K/uL (0.00-0.20); Basophils % (auto) 0.8 %; Eosinophils # (auto) 0.34 K/uL (0.00-0.50); Eosinophils % (auto) 2.5 %; Hematocrit (blood only) 39.9 % (42.0-52.0); Hemoglobin 12.8 g/dl (14.0-18.0); Immature Granulocytes # (auto) 0.07 K/uL (0.01-0.20); Immature Granulocytes % (auto) 0.5 %; Lymphocytes # (auto) 3.97 K/uL (1.20-3.40); Lymphocytes % (auto) 29.3 %; Mean Corpuscular Hemoglobin 24.4 pg (25.0-34.0); Mean Corpuscular Hgb Conc 32.1 g/dL (32.0-36.0); Mean Corpuscular Volume 76.1 fL (80.0-100.0); Mean Platelet Volume 11.3 fL (9.4-12.4); Monocytes # (auto) 1.11 K/uL (0.11-0.59); Monocytes % (auto) 8.2 %; Neutrophils # (auto) 7.97 K/uL (1.40-6.50); Neutrophils % (auto) 58.7 %; Platelet Count 237 K/uL (130-400); RDW Coefficient of Variation 19.7 % (11.5-14.5); RDW Standard Deviation 52.5 fL (36.4-46.3); Red Blood Count 5.24 M/uL (4.70-6.10); White Blood Count 13.57 K/ul (4.8-10.8)
[2024-08-31 07:57] LABS: Prothrombin Time 10.9 Seconds (9.0-12.0)
[2024-08-31 07:59] LABS: Albumin Level 3.3 gm/dl (3.4-5.0); BUN Creatinine Ratio 16.9 (10-20); Bilirubin,Total 0.7 mg/dl (0.2-1.0); Calcium 9.4 mg/dl (8.6-10.3); Creatinine Clr Calc Pharmacy 107.1 ml/min; Globulin 3.4 gm/dl (2.5-4.0); Magnesium 1.7 mg/dl (1.7-2.4); Potassium 3.5 mmol/L (3.5-5.1); Total Protein 6.7 gm/dl (6.0-8.3)
[2024-08-31] MEDS: DICLOFENAC SOD 1% GEL 100 GM TUBE EXT PRN (08:48)
[2024-08-31] MEDS: ASPIRIN 81 MG ECTAB PO SCH (08:52)
--- NOTE | 2024-08-31 11:01 | Hospitalist Progress Note ---
Date of Service August 31, 2024 Assessment & Plan (1) Coffee ground emesis: Plan 54-year-old male with past medical history significant for COPD, morbid obesity, type 2 diabetes, chronic diastolic heart failure, History of CAD/STEMI per records,hypertension, hyperlipidemia, history of PE on Coumadin, mood disorder, medication noncompliance, current active smoker, chronic opioid abuse currently on oxycodone, chronic indwelling Lloyd catheter, history of subdural hematoma, history of subarachnoid hemorrhage, history of iron deficiency anemia, depression with anxiety, venous insufficiency, Chronic pain on buprenorphine, drug-seeking behavior per records, history of MRSA/VRE and multiple recurrent admissions who presented with episodes of coffee-ground emesis. Patient stated he was very drowsy and family found it difficult to arouse him (p ossibly from UTI per patient) and finally woke up the day [employer]. Did not eat much. On day of arrival had multiple episodes of coffee-ground emesis which prompted him to come to the ER. Has some abdominal discomfort. Did not moved his bowels for last few days. Still had some nausea. Coffee-ground emesis Hemoglobin stable, 14.6 on admission Patient on Coumadin and INR was 2.2 on admission Held Coumadin, s/p one dose of vitamin K 2.5 mg IV ppi initially currently on po GI consulted, recommended/stated the following: "Patient has had no further vomiting. Will stop protonix drip at this time and transition to 40mg bid. He was taking two different PPIs as an outpatient. we discussed on discharged that he should stop omeprazole and just start protonix 40mg po bid. " Continue to monitor H/H Currently stable from this aspect for discharge on pantoprazole 40 mg twice daily Abnormal EKG EKG on admission with noted normal sinus rhythm, RBBB, diffuse nonspecific ST elevations as well as T wave inversions Troponinx3 normal/ unremarkable Echo was technically difficult. However it noted no pericardial effusion and that the left ventricle size and EF was normal. Right ventricle was not seen and no comment could be made on the valves or their function Serial EKGs Cardiology consulted, recommended/stated the following: - no cardiac testing warranted at this time. Continue to monitor on telemetry Patient currently stable from this aspect for discharge CAUTI UTI complicated Chronic indwelling Lloyd catheter Chronic leukocytosis History of recurrent UTIs with chronic leukocytosis during each admission UA on admission unremarkable and recommended repeat. Repeat UA unremarkable at this time On IV Rocephin, continue. Anticipate need to discontinue antibiotic treatment if urine culture remains unremarkable Will follow cultures Patient requesting to have urinary catheter replaced. States that it was last placed by home nursing incorrectly and had to be replaced at the last admission by urology. Urology consult was placed with urology advising that nursing can have the catheter changed. This was communicated to nursing staff who agreed to change the catheter on 08/31/2024. At this time patient is stable for discharge from this aspect with close PCP follow-up Nose lesion Patient notes a recent history of trauma to the nose Notes persistent erythematous area on bridge of nose on the right where his glasses sits Concern for infection, as needed mupirocin ordered Concern for inflammation, as needed hydrocortisone ordered Patient notes that he is concerned about using the topical treatments as they can smear his glasses Patient noted improvement with as needed treatments on 08/31/2024 Patient stable for discharge at this time from this aspect Morbid obesity DARIA Use oxygen 4L in the nighttime PCP follow-up for possible underlying DARIA States currently on Ozempic for the last 3 weeks PCP follow-up History of COPD Continue home inhalers and nebs Chronic diastolic CHF Continue home diuretics with potassium and magnesium supplements Was on gentle fluids Monitor for volume overload History of CAD Held aspirin for GI bleed and restart as soon as possible Continue beta-nasim, Imdur and statin Aspirin resumed to restart on 08/31/2024 History of PE Held Coumadin for above presentation Given GI recs, warfarin scheduled to resume on 08/31/2024 Chronic pain On buprenorphine And oxycodone as needed Also on gabapentin and Cymbalta Discussion with patient about institutional/pharmacy requirements for IV Tylenol such as n.p.o. status or inability to tolerate oral intake. Patient has been tolerating oral intake quite well for the past 2 days. Will defer on IV Tylenol at this time. Hypertension On beta-nasim and Imdur and diuretics We will monitor Diabetes Holding p.o. medications Insulin sliding scale We will monitor Ongoing tobacco abuse Encourage cessation Diet: DMII DVT prophylaxis: SCDs for now, to resume warfarin on 08/31 Dispo: Home once medically stable Admission and Anticipated Discharge Date Admission Date: August 29, 2024 Subjective Patient was seen in the AM States he is concerned about documentation in the chart noting that he has a history of chronic opioid use and drug-seeking behavior as well as medication noncompliance. States he would like this removed from the chart. States that he believes that he is no longer drug-seeking and medically compliant. Extensive discussion with patient that the notes note a "past medical history of" in his medical record and it is medically necessary to document his past medical history. Patient states that he will be contacting service excellence as he believes that this past medical history of drug-seeking behavior and chronic opioid use as well as medication noncompliance should not be included anymore in his chart or notes. He notes that the lesion on his nose has improved. Upon discussion of anticipated discharge, patient states that he does not feel ready for discharge, states he "still does not feel well". When questioned further, he notes that his white blood cell count is still elevated and his urine culture was drawn again yesterday. Discussion with patient that he has a chronic leukocytosis and that the urine culturex2 has been reassuring at this time. Review of Systems Review of Systems: All systems reviewed & are unremarkable except as noted in Subjective Physical Exam Physical Exam: General: Alert, oriented. No acute distress Psych: frustrated and at times angry mood and affect HEENT: NC/AT, red area on nose CV: RRR Resp: Breath sounds clear bilaterally, no increased effort of breathing Abdomen: Soft, tender in RUQ Extremities: chronic skin changes noted on lower extremities bilaterally. Results & Data Results & Data Vital Signs (Past 12 Hours) Vital Signs Temp Pulse Pulse Resp BP Pulse Ox O2 Del Method 08/31/24 10:58 36.8 C 69 17 122/75 95 Room Air 08/31/24 09:28 Room Air 08/31/24 07:22 36.2 C L 66 20 124/78 98 Nasal Cannula 08/31/24 07:16 78 20 96 Room Air 08/31/24 06:15 62 08/31/24 02:46 36.9 C 75 18 160/69 H 92 Room Air 08/31/24 01:20 95 H 08/30/24 23:24 36.8 C 85 18 137/71 93 Room Air O2 Flow Rate 08/31/24 10:58 08/31/24 09:28 08/31/24 07:22 2 08/31/24 07:16 08/31/24 06:15 12/12/24 02:46 08/31/24 01:20 08/30/24 23:24 Diagnostic Findings Abdomen/Pelvis CT 08/28/24 18:31 Exam(s): CT ABDOMEN + PELVIS Without Contrast EXAM: CT Abdomen and Pelvis Without Intravenous Contrast CLINICAL HISTORY: Reason for exam: abd pain, vomiting dark material. TECHNIQUE: Axial computed tomography images of the abdomen and pelvis without intravenous contrast. CTDI is 34 mGy and DLP is 1736 mGy-cm. Automated exposure control was utilized for the study. A dose lowering technique was utilized adhering to the principles of ALARA. COMPARISON: No relevant prior studies available. FINDINGS: ABDOMEN: Liver: Unremarkable. Gallbladder and bile ducts: Unremarkable. Pancreas: Unremarkable. Spleen: Unremarkable. Adrenals: Unremarkable. Kidneys and ureters: Unremarkable. No obstructing stones. No hydronephrosis. Stomach and bowel: No bowel obstruction. No inflammatory changes. PELVIS: Appendix: Status post appendectomy. Bladder: Lloyd catheter within the bladder. Reproductive: Unremarkable as visualized. ABDOMEN and PELVIS: Intraperitoneal space: Unremarkable. No free air. No significant fluid collection. Bones/joints: No acute fracture. Soft tissues: Small fat-containing umbilical hernia. Vasculature: Unremarkable. Lymph nodes: Unremarkable. IMPRESSION: No acute findings in the abdomen or pelvis. Electronically signed by: Jvoon Almanzar MD 08/28/24 22:51 PM Chest X-Ray 08/28/24 18:31 EXAM: Radiograph of the Chest 1 View INDICATION: Vomiting and abdominal pain. TECHNIQUE: Frontal view of the chest. COMPARISON: 07/31/2024 FINDINGS: Lungs and pleural spaces: Stable small pleural effusions and mild pulmonary vascular congestion. No confluent consolidation. No pneumothorax. Heart: Stable cardiomegaly. Loop recorder present. Mediastinum: Normal contour. Bones/joints: Degenerative changes noted throughout the spine. No acute osseous abnormality seen. Soft tissues: No abnormality noted. No radiopaque foreign body noted. Upper abdomen: No free intraperitoneal air subjacent to the diaphragms. IMPRESSION: Stable small pleural effusions and mild pulmonary vascular congestion. ACT 112: Negative or not required by law. Electronically signed by Rachel Morgan 08-28-2024 6:54 PM
[2024-08-31] MEDS: POTASSIUM CHLORIDE CRTAB 20 MEQ TABCR PO STA (14:59)
--- NOTE | 2024-08-31 15:08 | Cardiology Progress Note ---
Date of Service August 31, 2024 Assessment & Plan (1) Coffee ground emesis: (2) Acute UTI: Plan: 54-year-old morbidly obese male with history of chronic indwelling Lloyd catheter and chronic right heart failure presents with concerns of recent lethargy and coffee-ground emesis. EKG performed on arrival yesterday revealed heart rate which was mildly elevated compared to his usual baseline, chronic findings of incomplete right bundle branch block, and T wave inversions in the anterior leads, subtle ST segment depression in the lateral leads. He had a nonischemic dobutamine stress echocardiogram in 2018. The patient is on chronic anticoagulation with Coumadin due to his history of pulmonary embolism and Coumadin is on hold at present. GI input noted and appreciated. Patient has been transitioned to oral Protonix. Serial troponin levels negative x 3. Repeat EKG on 08/29/24 reveals RBBB and non specific repolarization changes. Volume status well-controlled on outpatient diuretic therapy. Continue outpatient dose of torsemide and spironolactone. Increase potassium supplementation to 40 mill equivalents every morning, 20 meq p.m. Agree with plan to resume coumadin with caution. Monitor Hgb /Hct. Admission and Anticipated Discharge Date Admission Date: August 29, 2024 Subjective Patient feeling well. Denies cardiac complaints. Denies chest discomfort or shortness of breath. Almost 5 L of urine output noted in the last 24 hours. Physical Exam Constitutional: WD/WN, vitals as above Eyes: PERRL, conjunctivae normal, anicteric sclerae Respiratory: normal respiratory effort, lungs clear to auscultation Cardiovascular: Rate/Rhythm: regular rate and regular rhythm Heart Sounds: no murmur Vessels: no JVD Extremities: + edema (trace chronic LE edema, chronic venous stasis changes ) Gastrointestinal (Abdomen): normal bowel sounds, soft, nontender, no hepatosplenomegaly Neurologic: PERRL, EOMI, accommodation nl, no face palsy, no dysarthria Results & Data Vital Signs (Past 12 Hours) Vital Signs Temp Pulse Pulse Resp BP Pulse Ox O2 Del Method 08/31/24 14:36 36.4 C L 74 19 132/78 97 Room Air 08/31/24 10:58 36.8 C 69 17 122/75 95 Room Air 08/31/24 09:28 Room Air 08/31/24 07:22 36.2 C L 66 20 124/78 98 Nasal Cannula 08/31/24 07:16 78 20 96 Room Air 08/31/24 06:15 62 O2 Flow Rate 08/31/24 14:36 08/31/24 10:58 08/31/24 09:28 08/31/24 07:22 2 08/31/24 07:16 08/31/24 06:15 Laboratory Results Cardiac Enzymes 08/31/24 Range/Units 06:28 AST 20 (13-39) U/L Coagulation 08/31/24 Range/Units 06:28 PT 10.9 (9.0-12.0) Seconds CBC 08/31/24 Range/Units 06:28 WBC 13.57 H (4.8-10.8) K/ul RBC 5.24 (4.70-6.10) M/uL Hgb 12.8 L (14.0-18.0) g/dl Hct 39.9 L (42.0-52.0) % Plt Count 237 (130-400) K/uL Neut # (Auto) 7.97 H (1.40-6.50) K/uL Lymph # (Auto) 3.97 H (1.20-3.40) K/uL Heard # (Auto) 1.11 H (0.11-0.59) K/uL Eos # (Auto) 0.34 (0.00-0.50) K/uL Baso # (Auto) 0.11 (0.00-0.20) K/uL Comprehensive Metabolic Panel 08/31/24 Range/Units 06:28 Sodium 137 (136-145) mmol/L Potassium 3.5 (3.5-5.1) mmol/L Chloride 94 L (98-107) mmol/L Carbon Dioxide 36 H (21-32) mmol/L BUN 22 (6-23) mg/dl Creatinine 1.30 (0.6-1.4) mg/dl Glucose 136 H (70-99(Fasting)) mg/dl Calcium 9.4 (8.6-10.3) mg/dl AST 20 (13-39) U/L ALT 14 (7-52) U/L Alkaline Phosphatase 92 (34-104) U/L Total Protein 6.7 (6.0-8.3) gm/dl Albumin 3.3 L (3.4-5.0) gm/dl Intake and Output 08/31/24 08/31/24 08/31/24 06:59 14:59 22:59 Intake Total 625 / 2803.667 178 / 1780 Output Total 700 / 3350 1500 / 1500 Balance -75 / -546.333 280 / 280 Intake: IV 50 / 178.667 cefTRIAXone SODIUM 2,000 mg In 50 / 50 50 ml @ 100 mls/hr IV Q24H [facility] Rx#:[id number] Oral 575 / 2625 178 / 1780 Output: Urine Amount (Catheter) 700 / 3350 1500 / 1500 Lloyd/Indwelling 700 / 3350 1500 / 1500 Other: Weight 175 kg Weight Measurement Method Standing Scale
[2024-08-31] MEDS: WARFARIN SOD 2.5 MG TAB PO SCH (16:44)
[2024-08-31] MEDS: NICOTINE 14 MG/24 HR PATCH TD SCH (20:12)
[2024-08-31] MEDS: POTASSIUM CHLORIDE CRTAB 20 MEQ TABCR PO SCH (20:29)
[2024-09-01 06:25] LABS: Basophils # (auto) 0.08 K/uL (0.00-0.20); Basophils % (auto) 0.7 %; Eosinophils # (auto) 0.44 K/uL (0.00-0.50); Eosinophils % (auto) 3.7 %; Hemoglobin 13.2 g/dl (14.0-18.0); Immature Granulocytes # (auto) 0.06 K/uL (0.01-0.20); Immature Granulocytes % (auto) 0.5 %; Lymphocytes % (auto) 27.3 %; Mean Corpuscular Hgb Conc 31.4 g/dL (32.0-36.0); Mean Corpuscular Volume 76.2 fL (80.0-100.0); Mean Platelet Volume 10.8 fL (9.4-12.4); Monocytes # (auto) 0.94 K/uL (0.11-0.59); Neutrophils # (auto) 7.02 K/uL (1.40-6.50); Neutrophils % (auto) 59.8 %; Platelet Count 223 K/uL (130-400); RDW Coefficient of Variation 20.2 % (11.5-14.5); RDW Standard Deviation 52.5 fL (36.4-46.3); Red Blood Count 5.51 M/uL (4.70-6.10); White Blood Count 11.74 K/ul (4.8-10.8)
[2024-09-01 06:50] LABS: Albumin Level 3.4 gm/dl (3.4-5.0); BUN Creatinine Ratio 15.8 (10-20); Bilirubin,Total 0.6 mg/dl (0.2-1.0); Calcium 9.5 mg/dl (8.6-10.3); Creatinine Clr Calc Pharmacy 115.9 ml/min; Globulin 3.3 gm/dl (2.5-4.0); Magnesium 1.7 mg/dl (1.7-2.4); Phosphorus 3.2 mg/dl (2.5-4.9); Potassium 3.1 mmol/L (3.5-5.1); Total Protein 6.7 gm/dl (6.0-8.3)
[2024-09-01 06:52] LABS: Prothrombin Time 10.8 Seconds (9.0-12.0)
[2024-09-01 07:16] LABS: Ovalocytes 1+; Polychromasia 1+
[2024-09-01] MEDS: POTASSIUM CHLORIDE CRTAB 20 MEQ TABCR PO SCH (08:14)
--- NOTE | 2024-09-01 09:54 | Hospitalist Progress Note ---
Date of Service September 01, 2024 Assessment & Plan (1) Coffee ground emesis: Plan 54-year-old male with past medical history significant for COPD, morbid obesity, type 2 diabetes, chronic diastolic heart failure, History of CAD/STEMI per records,hypertension, hyperlipidemia, history of PE on Coumadin, mood disorder, medication noncompliance, current active smoker, chronic opioid abuse currently on oxycodone, chronic indwelling Lloyd catheter, history of subdural hematoma, history of subarachnoid hemorrhage, history of iron deficiency anemia, depression with anxiety, venous insufficiency, Chronic pain on buprenorphine, drug-seeking behavior per records, history of MRSA/VRE and multiple recurrent admissions who presented with episodes of coffee-ground emesis. Patient stated he was very drowsy and family found it difficult to arouse him (p ossibly from UTI per patient) and finally woke up the day [employer]. Did not eat much. On day of arrival had multiple episodes of coffee-ground emesis which prompted him to come to the ER. Has some abdominal discomfort. Did not move his bowels for last few days. Still had some nausea. Coffee-ground emesis Hemoglobin stable, 14.6 on admission, currently stable at 13.2 Patient on Coumadin and INR was 2.2 on admission Held Coumadin, s/p one dose of vitamin K 2.5 mg IV ppi initially currently on po GI consulted, recommended/stated the following: "Patient has had no further vomiting. Will stop protonix drip at this time and transition to 40mg bid. He was taking two different PPIs as an outpatient. we discussed on discharged that he should stop omeprazole and just start protonix 40mg po bid. " Continue to monitor H/H, INR- warfarin has since been resumed Currently stable from this aspect for discharge on pantoprazole 40 mg twice daily Abnormal EKG EKG on admission with noted normal sinus rhythm, RBBB, diffuse nonspecific ST elevations as well as T wave inversions Troponinx3 normal/ unremarkable Echo was technically difficult. However it noted no pericardial effusion and that the left ventricle size and EF was normal. Right ventricle was not seen and no comment could be made on the valves or their function Serial EKGs Cardiology consulted, recommended/stated the following: - no cardiac testing warranted at this time. Continue to monitor on telemetry Patient currently stable from this aspect for discharge CAUTI UTI complicated Chronic indwelling Lloyd catheter Chronic leukocytosis History of recurrent UTIs with chronic leukocytosis during each admission UA on admission unremarkable and recommended repeat. Repeat UA unremarkable at this time On IV Rocephin, continue. Anticipate need to discontinue antibiotic treatment if urine culture remains unremarkable Will follow cultures Patient requesting to have urinary catheter replaced. States that it was last placed by home nursing incorrectly and had to be replaced at the last admission by urology. Urology consult was placed with urology advising that nursing can have the catheter changed. This was communicated to nursing staff who agreed to change the catheter on 08/31/2024. At this time patient is stable for discharge from this aspect with close PCP follow-up Nose lesion Patient notes a recent history of trauma to the nose Notes persistent erythematous area on bridge of nose on the right where his glasses sits Concern for infection, as needed mupirocin ordered Concern for inflammation, as needed hydrocortisone ordered Patient notes that he is concerned about using the topical treatments as they can smear his glasses Patient noted improvement with as needed treatments on 08/31/2024 Patient stable for discharge at this time from this aspect Malaise URI Symptoms Resp Viral panel on 09/01 negative Chest XRAY with no acute changes Symptomatic treatment at this time PCP followup after discharge RUQ Pain patient noting persistent right upper quadrant pain CT abdomen pelvis from 08/28 noting no acute pathology PCP follow-up Morbid obesity DARIA Use oxygen 4L in the nighttime PCP follow-up for possible underlying DARIA States currently on Ozempic for the last 3 weeks PCP follow-up History of COPD Continue home inhalers and nebs Chronic diastolic CHF Continue home diuretics with potassium and magnesium supplements Was on gentle fluids Monitor for volume overload History of CAD Held aspirin for GI bleed and restart as soon as possible Continue beta-nasim, Imdur and statin Aspirin resumed to restart on 08/31/2024 History of PE Held Coumadin for above presentation Given GI recs, warfarin scheduled to resume on 08/31/2024 Monitor INR Will need coumadin clinic followup on discharge Chronic pain On buprenorphine And oxycodone as needed Also on gabapentin and Cymbalta Discussion with patient about institutional/pharmacy requirements for IV Tylenol such as n.p.o. status or inability to tolerate oral intake. Patient has been tolerating oral intake quite well for the past 2 days. Will defer on IV Tylenol at this time. Hypertension On beta-nasim and Imdur and diuretics We will monitor Diabetes Holding p.o. medications Insulin sliding scale We will monitor Constipation PRN laxatives, stool softeners and enemas Chronic Nausea PRN phenergan Ongoing tobacco abuse Encourage cessation Nicotine patch Diet: DMII DVT prophylaxis: SCDs for now, to resume warfarin on 08/31 Dispo: Home once medically stable Admission and Anticipated Discharge Date Admission Date: August 29, 2024 Subjective Patient was seen in the a.m. about 945. Stated that he did not feel well. States he feels like he is coming down with viral illness. States that he does not feel ready to go home as he would need to get his grandchild sick at home. Notes some shortness of breath but states it is not as severe as it has been in the past. Discussion with patient no need to order respiratory viral panel and chest x-ray to further evaluate, and if negative can be discharged with close PCP follow-up Notes that he does not have a ride to get home today States that he will likely have 1 tomorrow Discussion of urine culture results having pinpoint growth at this time States that the nose lesion is improving discussion of need to follow-up with Coumadin clinic on discharge Review of Systems Review of Systems: All systems reviewed & are unremarkable except as noted in Subjective Physical Exam Physical Exam: General: Alert, oriented. No acute distress Psych: frustrated and at times angry mood and affect HEENT: NC/AT, red area on nose CV: RRR Resp: Breath sounds clear bilaterally, no increased effort of breathing Abdomen: Soft, tender in RUQ Extremities: chronic skin changes noted on lower extremities bilaterally. Results & Data Results & Data Vital Signs (Past 12 Hours) Vital Signs Temp Pulse Pulse Resp BP Pulse Ox Pulse Ox 09/01/24 07:26 36.3 C L 66 19 100/65 91 09/01/24 07:22 55 L 09/01/24 07:22 09/01/24 07:10 64 16 96 09/01/24 05:00 100 09/01/24 02:29 36.5 C 60 18 113/69 100 08/31/24 23:19 36.5 C 75 18 120/75 100 08/31/24 23:00 70 08/31/24 22:30 O2 Del Method O2 Del Method O2 Flow Rate O2 Flow Rate 09/01/24 07:26 Room Air 09/01/24 07:22 09/01/24 07:22 Room Air 09/01/24 07:10 Room Air 09/01/24 05:00 Nasal Cannula 4 09/01/24 02:29 Nasal Cannula 4 08/31/24 23:19 Nasal Cannula 4 08/31/24 23:00 08/31/24 22:30 Room Air
--- NOTE | 2024-09-01 10:21 | XRay Report ---
XR chest 1V portable CLINICAL HISTORY: SOB TECHNIQUE: Single frontal radiograph of the chest was obtained. Comparison: Comparison is made to chest radiograph 08/28/2024 FINDINGS: Exam is limited by underpenetration. Stable battery-powered device. The cardiomediastinal silhouette is normal. The lungs are clear. No evidence of pleural effusion or pneumothorax. IMPRESSION: No acute abnormalities and in particular no radiographic evidence of pneumonia. ACT 112: Negative or not required by law. Electronically signed by: Armand Tobar M.D. 09/01/2024 10:20 AM
--- NOTE | 2024-09-01 10:54 | Cardiology Progress Note ---
Date of Service September 01, 2024 Assessment & Plan (1) (HFpEF) heart failure with preserved ejection fraction: (2) Coffee ground emesis: (3) Acute UTI: Plan: 54-year-old morbidly obese male with history of chronic indwelling Lloyd catheter and chronic right heart failure presents with concerns of recent lethargy and coffee-ground emesis. EKG performed on arrival yesterday revealed heart rate which was mildly elevated compared to his usual baseline, chronic findings of incomplete right bundle branch block, and T wave inversions in the anterior leads, subtle ST segment depression in the lateral leads. He had a nonischemic dobutamine stress echocardiogram in 2018. The patient is on chronic anticoagulation with Coumadin due to his history of pulmonary embolism and Coumadin is on hold at present. GI input noted and appreciated. Patient has been transitioned to oral Protonix. Serial troponin levels negative x 3. Repeat EKG on 08/29/24 reveals RBBB and non specific repolarization changes. Volume status well-controlled on outpatient diuretic therapy. Continue outpatient dose of torsemide and spironolactone. Increase potassium supplementation to 40 mill equivalents every morning, 20 meq p.m. Agree with plan to resume coumadin with caution. Monitor Hgb /Hct. No further cardiac testing planned. Cardiology to sign off. Call with questions or concerns. Admission and Anticipated Discharge Date Admission Date: August 29, 2024 Subjective Patient seen in cardiology follow-up. Notes vague epigastric discomfort today and generalized illness. He states he feels like he is getting "the flu ". Telemetry reveals sinus rhythm in the 60s. Physical Exam Constitutional: WD/WN, vitals as above Eyes: PERRL, conjunctivae normal, anicteric sclerae Respiratory: normal respiratory effort, lungs clear to auscultation Cardiovascular: Rate/Rhythm: regular rate and regular rhythm Heart Sounds: no murmur Vessels: no JVD Extremities: + edema (trace chronic LE edema, chronic venous stasis changes ) Gastrointestinal (Abdomen): normal bowel sounds, soft, nontender, no hepatosplenomegaly Neurologic: PERRL, EOMI, accommodation nl, no face palsy, no dysarthria Results & Data Vital Signs (Past 12 Hours) Vital Signs Temp Pulse Pulse Resp BP Pulse Ox Pulse Ox 09/01/24 10:17 36.4 C L 59 L 19 109/71 94 09/01/24 07:26 36.3 C L 66 19 100/65 91 09/01/24 07:22 55 L 09/01/24 07:22 09/01/24 07:10 64 16 96 09/01/24 05:00 100 09/01/24 02:29 36.5 C 60 18 113/69 100 08/31/24 23:19 36.5 C 75 18 120/75 100 08/31/24 23:00 70 O2 Del Method O2 Del Method O2 Flow Rate O2 Flow Rate 09/01/24 10:17 Room Air 09/01/24 07:26 Room Air 09/01/24 07:22 09/01/24 07:22 Room Air 09/01/24 07:10 Room Air 09/01/24 05:00 Nasal Cannula 4 09/01/24 02:29 Nasal Cannula 4 08/31/24 23:19 Nasal Cannula 4 08/31/24 23:00
[2024-09-01 12:21] LABS: Adenovirus PCR Not Detected (NotDetected); Bordetella parapertussis PCR Not Detected (NotDetected); Bordetella pertussis PCR Not Detected (NotDetected); Chlamydia pneumoniae PCR Not Detected (NotDetected); Coronavirus 229E PCR Not Detected (NotDetected); Coronavirus CoV-2 (COVID19)PCR Not Detected (NotDetected); Coronavirus HKU1 PCR Not Detected (NotDetected); Coronavirus NL63 PCR Not Detected (NotDetected); Coronavirus OC43PCR Not Detected (NotDetected); Human Metapneumovirus PCR Not Detected (NotDetected); Influenza A PCR Not Detected (NotDetected); Influenza B PCR Not Detected (NotDetected); Mycoplasma pneumoniae PCR Not Detected (NotDetected); Parainfluenza Virus 1 PCR Not Detected (NotDetected); Parainfluenza Virus 2 PCR Not Detected (NotDetected); Parainfluenza Virus 3 PCR Not Detected (NotDetected); Parainfluenza Virus 4 PCR Not Detected (NotDetected); Respiratory Syncytial VirusPCR Not Detected (NotDetected); Rhinovirus/Enterovirus PCR Not Detected (NotDetected)
[2024-09-01] MEDS: POLYETHYLENE (MIRALAX) 17 GM PACK PO PRN (16:36)
[2024-09-01] MEDS: MAGNESIUM HYDROXIDE SUSP 30 ML UDC PO PRN (16:36)
[2024-09-01] MEDS: WARFARIN SOD 5 MG TAB PO SCH (16:39)
[2024-09-01] MEDS: PROMETHAZINE 6.25 MG/50.25 ML BAG IV PRN (17:39)
[2024-09-02 08:00] LABS: Basophils # (auto) 0.08 K/uL (0.00-0.20); Basophils % (auto) 0.7 %; Eosinophils # (auto) 0.43 K/uL (0.00-0.50); Eosinophils % (auto) 3.9 %; Hematocrit (blood only) 41.9 % (42.0-52.0); Immature Granulocytes # (auto) 0.05 K/uL (0.01-0.20); Immature Granulocytes % (auto) 0.5 %; Lymphocytes # (auto) 3.24 K/uL (1.20-3.40); Lymphocytes % (auto) 29.6 %; Mean Corpuscular Hemoglobin 24.1 pg (25.0-34.0); Mean Corpuscular Volume 77.6 fL (80.0-100.0); Monocytes # (auto) 0.75 K/uL (0.11-0.59); Monocytes % (auto) 6.8 %; Neutrophils % (auto) 58.5 %; Platelet Count 238 K/uL (130-400); RDW Coefficient of Variation 20.4 % (11.5-14.5); RDW Standard Deviation 54.2 fL (36.4-46.3); White Blood Count 10.95 K/ul (4.8-10.8)
[2024-09-02 08:21] LABS: Anisocytosis Present
[2024-09-02 08:29] LABS: Albumin Level 3.4 gm/dl (3.4-5.0); BUN Creatinine Ratio 17.2 (10-20); Bilirubin,Total 0.5 mg/dl (0.2-1.0); Calcium 9.9 mg/dl (8.6-10.3); Creatinine Clr Calc Pharmacy 121.9 ml/min; Globulin 3.4 gm/dl (2.5-4.0); Phosphorus 3.3 mg/dl (2.5-4.9); Potassium 3.7 mmol/L (3.5-5.1); Total Protein 6.8 gm/dl (6.0-8.3)
[2024-09-02 08:31] LABS: Prothrombin Time 10.7 Seconds (9.0-12.0)
--- NOTE | 2024-09-02 10:30 | Hospitalist Progress Note ---
Date of Service September 02, 2024 Assessment & Plan (1) Coffee ground emesis: Plan 54-year-old male with past medical history significant for COPD, morbid obesity, type 2 diabetes, chronic diastolic heart failure, History of CAD/STEMI per records,hypertension, hyperlipidemia, history of PE on Coumadin, mood disorder, medication noncompliance, current active smoker, chronic opioid abuse currently on oxycodone, chronic indwelling Lloyd catheter, history of subdural hematoma, history of subarachnoid hemorrhage, history of iron deficiency anemia, depression with anxiety, venous insufficiency, Chronic pain on buprenorphine, drug-seeking behavior per records, history of MRSA/VRE and multiple recurrent admissions who presented with episodes of coffee-ground emesis. Patient stated he was very drowsy and family found it difficult to arouse him (p ossibly from UTI per patient) and finally woke up the day [employer]. Did not eat much. On day of arrival had multiple episodes of coffee-ground emesis which prompted him to come to the ER. Has some abdominal discomfort. Did not move his bowels for last few days. Still had some nausea. Coffee-ground emesis Hemoglobin stable, 14.6 on admission, currently stable at 13.2 Patient on Coumadin and INR was 2.2 on admission Held Coumadin, s/p one dose of vitamin K 2.5 mg IV ppi initially currently on po GI consulted, recommended/stated the following: "Patient has had no further vomiting. Will stop protonix drip at this time and transition to 40mg bid. He was taking two different PPIs as an outpatient. we discussed on discharged that he should stop omeprazole and just start protonix 40mg po bid. " Continue to monitor H/H, INR- warfarin has since been resumed Currently stable from this aspect for discharge on pantoprazole 40 mg twice daily Abnormal EKG EKG on admission with noted normal sinus rhythm, RBBB, diffuse nonspecific ST elevations as well as T wave inversions Troponinx3 normal/ unremarkable Echo was technically difficult. However it noted no pericardial effusion and that the left ventricle size and EF was normal. Right ventricle was not seen and no comment could be made on the valves or their function Serial EKGs Cardiology consulted, recommended/stated the following: - no cardiac testing warranted at this time. Continue to monitor on telemetry Patient currently stable from this aspect for discharge CAUTI UTI complicated Chronic indwelling Lloyd catheter Chronic leukocytosis History of recurrent UTIs with chronic leukocytosis during each admission UA on admission unremarkable and recommended repeat. Repeat UA growing contaminant Corynebacterium On IV Rocephin, we will discontinue given unremarkable urine culture without significant growth Patient requesting to have urinary catheter replaced. States that it was last placed by home nursing incorrectly and had to be replaced at the last admission by urology. Urology consult was placed with urology advising that nursing can have the catheter changed. This was communicated to nursing staff who agreed to change the catheter on 08/31/2024. At this time patient is stable for discharge from this aspect with close PCP follow-up Nose lesion Patient notes a recent history of trauma to the nose Notes persistent erythematous area on bridge of nose on the right where his glasses sits Concern for infection, as needed mupirocin ordered Concern for inflammation, as needed hydrocortisone ordered Patient notes that he is concerned about using the topical treatments as they can smear his glasses Patient noted improvement with as needed treatments on 08/31/2024 Patient stable for discharge at this time from this aspect Malaise URI Symptoms Resp Viral panel on 09/01 negative Chest XRAY with no acute changes Symptomatic treatment at this time PCP followup after discharge RUQ Pain patient noting persistent right upper quadrant pain CT abdomen pelvis from 08/28 noting no acute pathology PCP follow-up Morbid obesity DARIA Use oxygen 4L in the nighttime PCP follow-up for possible underlying DARIA States currently on Ozempic for the last 3 weeks PCP follow-up History of COPD Continue home inhalers and nebs Chronic diastolic CHF Continue home diuretics with potassium and magnesium supplements Was on gentle fluids Monitor for volume overload History of CAD Held aspirin for GI bleed and restart as soon as possible Continue beta-nasim, Imdur and statin Aspirin resumed to restart on 08/31/2024 History of PE Held Coumadin for above presentation Given GI recs, warfarin scheduled to resume on 08/31/2024 Monitor INR Will need coumadin clinic followup on discharge Chronic pain On buprenorphine And oxycodone as needed Also on gabapentin and Cymbalta Discussion with patient about institutional/pharmacy requirements for IV Tylenol such as n.p.o. status or inability to tolerate oral intake. Patient has been tolerating oral intake quite well for the past 2 days. Will defer on IV Tylenol at this time. Hypertension On beta-nasim and Imdur and diuretics We will monitor Diabetes Holding p.o. medications Insulin sliding scale We will monitor Constipation PRN laxatives, stool softeners and enemas scheduled Colace and scheduled enema today. also scheduled MiraLAX CT abdomen pelvis done on admission with no noted acute bowel pathology or significant stool burden. Patient is passing gas and tolerating diet without issue. Chronic Nausea PRN phenergan Ongoing tobacco abuse Encourage cessation Nicotine patch Diet: DMII DVT prophylaxis: SCDs for now, to resume warfarin on 08/31 Dispo: Home once medically stable Admission and Anticipated Discharge Date Admission Date: August 29, 2024 Subjective Patient was seen in the a.m. Concerned about his CO2 which is chronic Also concerned about having a bowel movement, states he wants to have a bowel movement before he leaves. Patient currently is on as stool softener and has as needed MiraLAX ordered 3 times daily, milk of magnesia every 6h as needed, glycerin suppository daily as needed. CT abdomen pelvis done on admission with no noted acute bowel pathology or significant stool burden. Patient is passing gas and tolerating diet without issue. States that he is not ready to leave today but will definitely have a ride tomorrow. Patient agreeable to discharge order being placed tomorrow. Review of Systems Review of Systems: All systems reviewed & are unremarkable except as noted in Subjective Physical Exam Physical Exam: General: Alert, oriented. No acute distress Psych: frustrated and at times angry mood and affect HEENT: NC/AT, red area on nose CV: RRR Resp: Breath sounds clear bilaterally, no increased effort of breathing Abdomen: Soft, tender in RUQ Extremities: chronic skin changes noted on lower extremities bilaterally. Results & Data Results & Data Vital Signs (Past 12 Hours) Vital Signs Temp Pulse Pulse Resp BP Pulse Ox Pulse Ox 09/02/24 08:50 09/02/24 07:48 53 L 09/02/24 07:46 36.7 C 78 18 138/79 97 09/02/24 05:00 99 09/02/24 03:21 36.8 C 68 17 112/74 99 09/01/24 23:23 65 09/01/24 22:43 36.7 C 67 17 117/72 98 O2 Del Method O2 Del Method O2 Flow Rate 09/02/24 08:50 Room Air 09/02/24 07:48 09/02/24 07:46 Nasal Cannula 09/02/24 05:00 Nasal Cannula 4 09/02/24 03:21 Nasal Cannula 09/01/24 23:23 09/01/24 22:43 Nasal Cannula
[2024-09-02] MEDS ORDERED: SOD PHOSPHATE/SOD BIPHOSPHATE ENEMA 132 ML BTL PR SCH (19:00)
[2024-09-02] MEDS: POLYETHYLENE (MIRALAX) 17 GM PACK PO SCH (20:49)
[2024-09-02] MEDS: GLYCERIN ADULT 12 SUPP/BOX SUPP PR PRN (22:20)
[2024-09-03 07:28] LABS: Basophils # (auto) 0.09 K/uL (0.00-0.20); Basophils % (auto) 0.7 %; Eosinophils # (auto) 0.52 K/uL (0.00-0.50); Eosinophils % (auto) 3.9 %; Hematocrit (blood only) 41.8 % (42.0-52.0); Hemoglobin 13.2 g/dl (14.0-18.0); Immature Granulocytes # (auto) 0.05 K/uL (0.01-0.20); Immature Granulocytes % (auto) 0.4 %; Lymphocytes # (auto) 3.48 K/uL (1.20-3.40); Lymphocytes % (auto) 25.9 %; Mean Corpuscular Hemoglobin 24.3 pg (25.0-34.0); Mean Corpuscular Hgb Conc 31.6 g/dL (32.0-36.0); Mean Platelet Volume 11.4 fL (9.4-12.4); Monocytes # (auto) 0.95 K/uL (0.11-0.59); Monocytes % (auto) 7.1 %; Neutrophils # (auto) 8.37 K/uL (1.40-6.50); Platelet Count 255 K/uL (130-400); RDW Coefficient of Variation 20.2 % (11.5-14.5); RDW Standard Deviation 53.8 fL (36.4-46.3); Red Blood Count 5.43 M/uL (4.70-6.10); White Blood Count 13.46 K/ul (4.8-10.8)
[2024-09-03 07:37] LABS: Albumin Level 3.5 gm/dl (3.4-5.0); BUN Creatinine Ratio 18.8 (10-20); Bilirubin,Total 0.5 mg/dl (0.2-1.0); Calcium 9.9 mg/dl (8.6-10.3); Creatinine Clr Calc Pharmacy 120.5 ml/min; Globulin 3.5 gm/dl (2.5-4.0); Magnesium 1.7 mg/dl (1.7-2.4); Phosphorus 3.3 mg/dl (2.5-4.9); Potassium 3.8 mmol/L (3.5-5.1)
[2024-09-03 07:50] LABS: Anisocytosis Present
[2024-09-03 08:06] LABS: Prothrombin Time 10.9 Seconds (9.0-12.0)
[2024-09-03] MEDS: ACETAMINOPHEN 325 MG TAB PO PRN (08:46)
[2024-09-03] MEDS: WARFARIN SOD 2.5 MG TAB PO STA (09:26)
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
--- NOTE | 2024-09-04 06:01 | Electrocardiogram Report ---
Test Reason : Blood Pressure : */* mmHG Vent. Rate : 67 BPM Atrial Rate : 67 BPM P-R Int : 180 ms QRS Dur : 118 ms QT Int : 416 ms P-R-T Axes : 1 21 63 degrees QTcB Int : 439 ms Normal sinus rhythm Incomplete right bundle branch block Nonspecific T wave abnormality Abnormal ECG When compared with ECG of 29-Aug-2024 11:54, No significant change was found Confirmed by Shaquille Canales ([id number]) on 09/04/2024 6:00:56 AM Referred By: Kehinde Mc Confirmed By: Shaquille Canales
[2024-09-04 08:36] LABS: Basophils # (auto) 0.09 K/uL (0.00-0.20); Basophils % (auto) 0.8 %; Eosinophils # (auto) 0.51 K/uL (0.00-0.50); Eosinophils % (auto) 4.5 %; Immature Granulocytes # (auto) 0.06 K/uL (0.01-0.20); Immature Granulocytes % (auto) 0.5 %; Lymphocytes # (auto) 3.37 K/uL (1.20-3.40); Lymphocytes % (auto) 29.6 %; Mean Corpuscular Hgb Conc 31.8 g/dL (32.0-36.0); Mean Corpuscular Volume 78.4 fL (80.0-100.0); Mean Platelet Volume 11.5 fL (9.4-12.4); Monocytes # (auto) 0.74 K/uL (0.11-0.59); Monocytes % (auto) 6.5 %; Neutrophils % (auto) 58.1 %; Platelet Count 271 K/uL (130-400); RDW Coefficient of Variation 20.6 % (11.5-14.5); RDW Standard Deviation 56.1 fL (36.4-46.3); Red Blood Count 5.61 M/uL (4.70-6.10); White Blood Count 11.37 K/ul (4.8-10.8)
[2024-09-04 08:48] LABS: Albumin Globulin Ratio 1.1 (0.9-2); Albumin Level 3.7 gm/dl (3.4-5.0); BUN Creatinine Ratio 23.5 (10-20); Bilirubin,Total 0.4 mg/dl (0.2-1.0); Calcium 9.9 mg/dl (8.6-10.3); Creatinine Clr Calc Pharmacy 139.8 ml/min; Globulin 3.4 gm/dl (2.5-4.0); Magnesium 1.9 mg/dl (1.7-2.4); Phosphorus 3.5 mg/dl (2.5-4.9); Potassium 3.7 mmol/L (3.5-5.1); Total Protein 7.1 gm/dl (6.0-8.3)
[2024-09-04 08:57] LABS: Anisocytosis Present
[2024-09-04 09:00] LABS: Prothrombin Time 11.3 Seconds (9.0-12.0)
--- NOTE | 2024-09-04 11:08 | Discharge Summary ---
Discharge Summary Date of Service September 04, 2024 Principal Dx & Hospital Course #1 = Principal Diagnosis (1) Coffee ground emesis: Plan 54-year-old male with past medical history significant for COPD, morbid obesity, type 2 diabetes, chronic diastolic heart failure, History of CAD/STEMI per records,hypertension, hyperlipidemia, history of PE on Coumadin, mood disorder, medication noncompliance, current active smoker, chronic opioid abuse currently on oxycodone, chronic indwelling Lloyd catheter, history of subdural hematoma, history of subarachnoid hemorrhage, history of iron deficiency anemia, depression with anxiety, venous insufficiency, Chronic pain on buprenorphine, drug-seeking behavior per records, history of MRSA/VRE and multiple recurrent admissions who presented with episodes of coffee-ground emesis. 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 Did not eat much. On day of arrival had multiple episodes of coffee-ground emesis which prompted him to come to the ER. Has some abdominal discomfort. Did not move his bowels for last few days. Still had some nausea. Coffee-ground emesis Hemoglobin stable, 14.6 on admission, currently stable at 13.2 Patient on Coumadin and INR was 2.2 on admission Held Coumadin, s/p one dose of vitamin K 2.5 mg IV ppi initially currently on po GI consulted, recommended/stated the following: "Patient has had no further vomiting. Will stop protonix drip at this time and transition to 40mg bid. He was taking two different PPIs as an outpatient. we discussed on discharged that he should stop omeprazole and just start protonix 40mg po bid. " Continue to monitor H/H, INR- warfarin has since been resumed. INR has remained in normal limits despite resumption of warfarin on 08/31. Extra dose of warfarin 2.5mg given on 09/03/24 Discharged with home pantoprazole 40 mg twice daily. Patient advised to discontinue omeprazole INR still subtherapeutic Abnormal EKG EKG on admission with noted normal sinus rhythm, RBBB, diffuse nonspecific ST elevations as well as T wave inversions Troponinx3 normal/ unremarkable Echo was technically difficult. However it noted no pericardial effusion and that the left ventricle size and EF was normal. Right ventricle was not seen and no comment could be made on the valves or their function Serial EKGs Cardiology consulted, recommended/stated the following: - no cardiac testing warranted at this time. Continue to monitor on telemetry Patient currently stable from this aspect for discharge CAUTI UTI complicated Chronic indwelling Lloyd catheter Chronic leukocytosis History of recurrent UTIs with chronic leukocytosis during each admission UA on admission unremarkable and recommended repeat. Repeat UA growing contaminant Corynebacterium On IV Rocephin, we will discontinue given unremarkable urine culture without significant growth Patient requesting to have urinary catheter replaced. States that it was last placed by home nursing incorrectly and had to be replaced at the last admission by urology. Urology consult was placed with urology advising that nursing can have the catheter changed. This was communicated to nursing staff who agreed to change the catheter on 08/31/2024. At this time patient is stable for discharge from this aspect with close PCP follow-up Nose lesion Patient notes a recent history of trauma to the nose Notes persistent erythematous area on bridge of nose on the right where his glasses sits Concern for infection, as needed mupirocin ordered Concern for inflammation, as needed hydrocortisone ordered Patient notes that he is concerned about using the topical treatments as they can smear his glasses Patient noted improvement with as needed treatments on 08/31/2024 Patient stable for discharge at this time from this aspect Malaise URI Symptoms Resp Viral panel on 09/01 negative Chest XRAY with no acute changes Symptomatic treatment at this time PCP followup after discharge RUQ Pain patient noting persistent right upper quadrant pain CT abdomen pelvis from 08/28 noting no acute pathology PCP follow-up Morbid obesity DARIA Use oxygen 4L in the nighttime PCP follow-up for possible underlying DARIA States currently on Ozempic for the last 3 weeks PCP follow-up History of COPD Continue home inhalers and nebs Chronic diastolic CHF Continue home diuretics with potassium and magnesium supplements Was on gentle fluids Monitor for volume overload History of CAD Held aspirin for GI bleed and restart as soon as possible Continue beta-nasim, Imdur and statin Aspirin resumed to restart on 08/31/2024 History of PE Held Coumadin for above presentation Given GI recs, warfarin scheduled to resume on 08/31/2024 INR has remained in normal limits despite resumption on 08/31. Extra dose of warfarin 2.5mg given on 09/03/24 Monitor INR Will need coumadin clinic followup on discharge Chronic pain On buprenorphine And oxycodone as needed Also on gabapentin and Cymbalta Discussion with patient about institutional/pharmacy requirements for IV Tylenol such as n.p.o. status or inability to tolerate oral intake. Patient has been tolerating oral intake quite well for the past 2 days. Will defer on IV Tylenol at this time. Hypertension On beta-nasim and Imdur and diuretics We will monitor Diabetes Holding p.o. medications Insulin sliding scale We will monitor Constipation PRN laxatives, stool softeners and enemas scheduled Colace and scheduled enema today. also scheduled MiraLAX CT abdomen pelvis done on admission with no noted acute bowel pathology or significant stool burden. Patient is passing gas and tolerating diet without issue. pt with bowel movement on 09/02/24 Chronic Nausea PRN phenergan Ongoing tobacco abuse Encourage cessation Nicotine patch Chest Pain Pt with episode of chest pain on 09/03, noting he can't go home EKG unremarkable for acute ischemia Urgent trop normal, even lower than previous PRN pain meds as above Continue ppi and famotidine Continue to monitor Diet: DMII DVT prophylaxis: SCDs for now, to resume warfarin on 08/31 Dispo: Home once medically stable Notes For Next Care Provider Needs Coumadin Clinic Follow up 1-2 days after discharge for INR monitoring and warfarin adjustments as needed. Pt received Vit K when he presented with concern for hematemesis. Medication Changes From Visit Per Cardiology: KCl 40mEq in AM, 20mEq qhs Per GI: pantoprazole 40mg BID, STOP omeprazole Admission HPI Per Admitting Provider 54-year-old male with past medical history significant for COPD, morbid obesity, type 2 diabetes, chronic diastolic heart failure, History of CAD/STEMI per records,hypertension, hyperlipidemia, history of PE on Coumadin, mood disorder, medication noncompliance, current active smoker, chronic opioid abuse, chronic indwelling Lloyd catheter, history of subdural hematoma, history of subarachnoid hemorrhage, history of iron deficiency anemia, depression with anxiety, venous insufficiency, Chronic pain on buprenorphine, drug-seeking behavior per records, history of MRSA/VRE and multiple recurrent admissions presents with coffee- ground emesis. Patient states last 3 to 4 days he was very drowsy and family found difficult to arouse him possibly from UTI per patient and finally woke up yesterday. Did not eat much. Today had multiple episodes of coffee-ground emesis which prompted him to come to the ER. Has some abdominal discomfort. Did not moved his bowels for last few days. Still has some nausea. Denies chest pain or shortness of breath. Denies fevers. Denies headache. Vision is okay. No runny nose or sore throat. No cough. Ambulating with a cane. Currently resting comfortably and hemodynamically stable. Past medical history. As mentioned above. Past surgical history. Colonoscopy. EGD. EGD with endoscopic ultrasound. Foot surgery. Repair of extension tendon finger left side. Repair of left hand joint. Social history. Smokes 2 packs a day for last 32 years. No current use of alcohol. History of DUIs. Opioid dependence. Family history. Sister had breast cancer. Father aneurysm. Maternal grandfather had ID in his 50s. Maternal grandmother ID in 80s. Paternal grandfather had COPD. Admission Exam Per Admitting Provider General-Not in distress Head- atraumatic Eyes- PERRL. ENT- oropharynx clear Neck- supple, no JVD. Lungs- clear to auscultation no wheezing or crackles Heart- regular rate and rhythm; no murmur, no gallop. Abdomen- normal bowel sounds, soft, nontender, no distension Extremities-b/l lower extremity edema present,no erythema seen. Neuro- alert, oriented PERRL, no facial palsy; no dysarthria; moves extremities Discharge Exam General: Alert, oriented. No acute distress HEENT: NC/AT, improved erythematous lesion on nose CV: RRR Resp: Breath sounds clear but decreased bilaterally, no increased effort of breathing Abdomen: Soft, tender in RUQ Extremities: chronic skin changes noted on lower extremities bilaterally. Updated Medication List Medication Instructions Recorded Confirmed Type Lactobacillus acidophilus 1 1,000 mmu cells PO DAILY 08/29/24 08/29/24 History billion cell tablet albuterol sulfate 90 mcg/actuation 2 inh inhalation Q4H PRN Shortness 08/29/24 08/29/24 History aerosol inhaler Of Breath Or Wheezing aspirin 81 mg tablet,delayed 81 mg PO DAILY 08/29/24 08/29/24 History release atorvastatin 80 mg tablet 80 mg PO PM 08/29/24 08/29/24 History budesonide 0.5 mg/2 mL suspension 0.5 mg inhalation BID 08/29/24 08/29/24 History for nebulization buprenorphine HCl 8 mg sublingual 8 mg sublingual UD 08/29/24 08/29/24 History tablet cyclobenzaprine 10 mg tablet 10 mg PO BID PRN muscle spasms 08/29/24 08/29/24 History docusate sodium 100 mg capsule 100 mg PO BID 08/29/24 08/29/24 History (Colace) duloxetine 60 mg capsule,delayed 60 mg PO DAILY 08/29/24 08/29/24 History release famotidine 20 mg tablet 20 mg PO DAILY 08/29/24 08/29/24 History ferrous sulfate 325 mg (65 mg 325 mg PO DAILY 08/29/24 08/29/24 History iron) tablet finasteride 5 mg tablet 5 mg PO DAILY 08/29/24 08/29/24 History fluticasone 250 mcg-salmeterol 50 1 inh inhalation BID 08/29/24 08/29/24 History mcg/dose blistr powdr for inhalation folic acid 1 mg tablet 1 mg PO DAILY 08/29/24 08/29/24 History gabapentin 600 mg tablet 600 mg PO TID 08/29/24 08/29/24 History glipizide 10 mg tablet 10 mg PO UD 08/29/24 08/29/24 History ipratropium 0.5 mg-albuterol 3 mg 3 ml inhalation TID 08/29/24 08/29/24 History (2.5 mg base)/3 mL nebulization soln isosorbide dinitrate 30 mg tablet 30 mg PO DAILY 08/29/24 08/29/24 History magnesium oxide 400 mg (241.3 mg 400 mg PO DAILY 08/29/24 08/29/24 History magnesium) tablet metoprolol succinate 50 mg 75 mg PO BID 08/29/24 08/29/24 History tablet,extended release 24 hr omeprazole 20 mg capsule,delayed 20 mg PO DAILY 08/29/24 08/29/24 History release ondansetron HCl 4 mg tablet 4 mg PO TID PRN Nausea And Vomiting 08/29/24 08/29/24 History oxycodone 10 mg tablet 10 mg PO BID PRN Pain, Severe 08/29/24 08/29/24 History pantoprazole 40 mg tablet,delayed 40 mg PO DAILY 08/29/24 08/29/24 History release potassium chloride 20 mEq 20 meq PO BID 08/29/24 08/29/24 History tablet,extended release spironolactone 25 mg tablet 25 mg PO DAILY 08/29/24 08/29/24 History tamsulosin 0.4 mg capsule 0.4 mg PO DAILY 08/29/24 08/29/24 History torsemide 100 mg tablet 100 mg PO DAILY 08/29/24 08/29/24 History umeclidinium 62.5 mcg/actuation 1 inh inhalation DAILY 08/29/24 08/29/24 History blister powder for inhalation (Incruse Ellipta) warfarin 4 mg tablet 4 mg PO UD 08/29/24 08/29/24 History pantoprazole 40 mg tablet,delayed 40 mg PO BID #60 tabs 09/04/24 Rx release potassium chloride 20 mEq 20 meq PO HS #30 tabs 09/04/24 Rx tablet,extended release(part/cryst) potassium chloride 20 mEq 40 meq (2 x 20 mEq) PO QAM #60 tabs 09/04/24 Rx tablet,extended release(part/cryst) Hospital Stay Data Consultations 08/29/24 00:14 ED Decision to Admit Stat 08/29/24 08:00 Consult Cardiology Routine Consult Gastroenterology Routine Diagnostic Imagining Performed 08/28/24 18:31 CT abd pelvis wo con Stat Abdomen/Pelvis CT 08/28/24 18:31 Exam(s): CT ABDOMEN + PELVIS Without Contrast EXAM: CT Abdomen and Pelvis Without Intravenous Contrast CLINICAL HISTORY: Reason for exam: abd pain, vomiting dark material. TECHNIQUE: Axial computed tomography images of the abdomen and pelvis without intravenous contrast. CTDI is 34 mGy and DLP is 1736 mGy-cm. Automated exposure control was utilized for the study. A dose lowering technique was utilized adhering to the principles of ALARA. COMPARISON: No relevant prior studies available. FINDINGS: ABDOMEN: Liver: Unremarkable. Gallbladder and bile ducts: Unremarkable. Pancreas: Unremarkable. Spleen: Unremarkable. Adrenals: Unremarkable. Kidneys and ureters: Unremarkable. No obstructing stones. No hydronephrosis. Stomach and bowel: No bowel obstruction. No inflammatory changes. PELVIS: Appendix: Status post appendectomy. Bladder: Lloyd catheter within the bladder. Reproductive: Unremarkable as visualized. ABDOMEN and PELVIS: Intraperitoneal space: Unremarkable. No free air. No significant fluid collection. Bones/joints: No acute fracture. Soft tissues: Small fat-containing umbilical hernia. Vasculature: Unremarkable. Lymph nodes: Unremarkable. IMPRESSION: No acute findings in the abdomen or pelvis. Electronically signed by: Jovon Almanzar MD 08/28/24 22:51 PM Chest X-Ray 08/28/24 18:31 EXAM: Radiograph of the Chest 1 View INDICATION: Vomiting and abdominal pain. TECHNIQUE: Frontal view of the chest. COMPARISON: 07/31/2024 FINDINGS: Lungs and pleural spaces: Stable small pleural effusions and mild pulmonary vascular congestion. No confluent consolidation. No pneumothorax. Heart: Stable cardiomegaly. Loop recorder present. Mediastinum: Normal contour. Bones/joints: Degenerative changes noted throughout the spine. No acute osseous abnormality seen. Soft tissues: No abnormality noted. No radiopaque foreign body noted. Upper abdomen: No free intraperitoneal air subjacent to the diaphragms. IMPRESSION: Stable small pleural effusions and mild pulmonary vascular congestion. ACT 112: Negative or not required by law. Electronically signed by Rachel Morgan 08-28-2024 6:54 PM Chest X-Ray 09/01/24 09:54 XR chest 1V portable CLINICAL HISTORY: SOB TECHNIQUE: Single frontal radiograph of the chest was obtained. Comparison: Comparison is made to chest radiograph 08/28/2024 FINDINGS: Exam is limited by underpenetration. Stable battery-powered device. The cardiomediastinal silhouette is normal. The lungs are clear. No evidence of pleural effusion or pneumothorax. IMPRESSION: No acute abnormalities and in particular no radiographic evidence of pneumonia. ACT 112: Negative or not required by law. Electronically signed by: Armand Tobar M.D. 09/01/2024 10:20 AM Discharge Instructions Given to Patient (Per Discharging Provider) Sharad Eid were seen by the screening tech who recommends that you continue with pantoprazole 40 mg twice a day at home. Stop taking you omeprazole that you have at home. You were also seen by the insulation worker furnace installer who made changes to your potassium regimen. Please continue taking it as prescribed listed below. You will need very close follow-up with the Coumadin clinic to ensure that your INR is back to therapeutic levels. You received antibiotics while in the hospital for a presumed urinary tract infection but your urine culture did not have any significant growth. Therefore you do not need antibiotics on discharge. Please keep close follow-up with your primary care provider and specialists after discharge. Please keep close follow up with your primary care provider after discharge. Please do not hesitate to come back to the emergency room if your symptoms worsen or return. It was a pleasure taking care of you while you were here. Total Time Total Time Spent Total Time Spent (In Minutes): 60
--- NOTE | 2024-09-04 12:02 | Hospitalist Progress Note ---
Date of Service September 04, 2024 Assessment & Plan (1) Coffee ground emesis: Plan 54-year-old male with past medical history significant for COPD, morbid obesity, type 2 diabetes, chronic diastolic heart failure, History of CAD/STEMI per records,hypertension, hyperlipidemia, history of PE on Coumadin, mood disorder, medication noncompliance, current active smoker, chronic opioid abuse currently on oxycodone, chronic indwelling Lloyd catheter, history of subdural hematoma, history of subarachnoid hemorrhage, history of iron deficiency anemia, depression with anxiety, venous insufficiency, Chronic pain on buprenorphine, drug-seeking behavior per records, history of MRSA/VRE and multiple recurrent admissions who presented with episodes of coffee-ground emesis. 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 Did not eat much. On day of arrival had multiple episodes of coffee-ground emesis which prompted him to come to the ER. Has some abdominal discomfort. Did not move his bowels for last few days. Still had some nausea. Coffee-ground emesis Hemoglobin stable, 14.6 on admission, currently stable at 13.2 Patient on Coumadin and INR was 2.2 on admission Held Coumadin, s/p one dose of vitamin K 2.5 mg IV ppi initially currently on po GI consulted, recommended/stated the following: "Patient has had no further vomiting. Will stop protonix drip at this time and transition to 40mg bid. He was taking two different PPIs as an outpatient. we discussed on discharged that he should stop omeprazole and just start protonix 40mg po bid. " Continue to monitor H/H, INR- warfarin has since been resumed. INR has remained in normal limits despite resumption of warfarin on 08/31. Extra dose of warfarin 2.5mg given on 09/03/24. Pantoprazole 40 mg twice daily on discharge. Patient advised to discontinue omeprazole INR still subtherapeutic at 1.0, started on Lovenox bridge on 09/04, to be discharged with bridge which pt states he has used in the past Will need coumadin clinic followup on discharge Abnormal EKG EKG on admission with noted normal sinus rhythm, RBBB, diffuse nonspecific ST elevations as well as T wave inversions Troponinx3 normal/ unremarkable Echo was technically difficult. However it noted no pericardial effusion and that the left ventricle size and EF was normal. Right ventricle was not seen and no comment could be made on the valves or their function Serial EKGs Cardiology consulted, recommended/stated the following: - no cardiac testing warranted at this time. Continue to monitor on telemetry Patient currently stable from this aspect for discharge CAUTI UTI complicated Chronic indwelling Lloyd catheter Chronic leukocytosis History of recurrent UTIs with chronic leukocytosis during each admission UA on admission unremarkable and recommended repeat. Repeat UA growing contaminant Corynebacterium On IV Rocephin, we will discontinue given unremarkable urine culture without significant growth. Patient requesting to have urinary catheter replaced. States that it was last placed by home nursing incorrectly and had to be replaced at the last admission by urology. Urology consult was placed with urology advising that nursing can have the catheter changed. This was communicated to nursing staff who agreed to change the catheter on 08/31/2024. At this time patient is stable for discharge from this aspect with close PCP follow-up Nose lesion Patient notes a recent history of trauma to the nose Notes persistent erythematous area on bridge of nose on the right where his glasses sits Concern for infection, as needed mupirocin ordered Concern for inflammation, as needed hydrocortisone ordered Patient notes that he is concerned about using the topical treatments as they can smear his glasses Patient noted improvement with as needed treatments on 08/31/2024 Patient stable for discharge at this time from this aspect Malaise URI Symptoms Resp Viral panel on 09/01 negative Chest XRAY with no acute changes Symptomatic treatment at this time PCP followup after discharge RUQ Pain patient noting persistent right upper quadrant pain CT abdomen pelvis from 08/28 noting no acute pathology PCP follow-up History of PE Held Coumadin for above presentation Given GI recs, warfarin resumed on 08/31/2024 INR has remained in normal limits despite resumption on 08/31. Extra dose of w arfarin 2.5mg given on 09/03/24. INR remains persistently at 1.0 started on Lovenox bridge on 09/04, to be discharged with bridge which pt states he has used in the past Will need coumadin clinic followup on discharge Morbid obesity DARIA Use oxygen 4L in the nighttime PCP follow-up for possible underlying DARIA States currently on Ozempic for the last 3 weeks PCP follow-up History of COPD Continue home inhalers and nebs Chronic diastolic CHF Continue home diuretics with potassium and magnesium supplements Was on gentle fluids Monitor for volume overload History of CAD Held aspirin for GI bleed and restart as soon as possible Continue beta-nasim, Imdur and statin Aspirin resumed on 08/31/2024 Chronic pain On buprenorphine And oxycodone as needed Also on gabapentin and Cymbalta Discussion with patient about institutional/pharmacy requirements for IV Tylenol such as n.p.o. status or inability to tolerate oral intake. Patient has been tolerating oral intake quite well for the past 2 days. Will defer on IV Tylenol at this time. Hypertension On beta-nasim and Imdur and diuretics We will monitor Diabetes Holding p.o. medications Insulin sliding scale We will monitor Constipation PRN laxatives, stool softeners and enemas scheduled Colace and scheduled enema today. also scheduled MiraLAX CT abdomen pelvis done on admission with no noted acute bowel pathology or significant stool burden. Patient is passing gas and tolerating diet without issue. pt with bowel movement on 09/02/24 Chronic Nausea PRN phenergan Ongoing tobacco abuse Encourage cessation Nicotine patch Chest Pain Pt with episode of chest pain on 09/03, noting he can't go home EKG unremarkable for acute ischemia Urgent trop normal, even lower than previous PRN pain meds as above Continue ppi and famotidine Continue to monitor Improved Diet: DMII DVT prophylaxis:Resumed warfarin on 08/31, lovenox bridge added on 09/04 for persistent INR at 1.0 Dispo: Home once medically stable Admission and Anticipated Discharge Date Admission Date: August 29, 2024 Subjective patient was seen in the a.m. downgraded and states he is ready to be discharged today requesting enema before he left but does not he had a bowel movement in the last 2 days Later after discharge was in, patient stating that his could not get out of garage due to the snowstorm Review of Systems Review of Systems: All systems reviewed & are unremarkable except as noted in Subjective Physical Exam Physical Exam: General: Alert, oriented. No acute distress HEENT: NC/AT, improved erythematous lesion on nose CV: RRR Resp: Breath sounds clear but decreased bilaterally, no increased effort of breathing Abdomen: Soft, tender in RUQ Extremities: chronic skin changes noted on lower extremities bilaterally. Results & Data Results & Data Vital Signs (Past 12 Hours) Vital Signs Temp Pulse Pulse Resp BP BP Pulse Ox 12/16/24 09:09 09/04/24 09:08 36.5 C 73 16 131/71 96 09/04/24 07:16 36.8 C 77 16 128/69 96 09/04/24 05:00 09/04/24 02:39 36.6 C 64 18 119/68 95 09/04/24 00:15 63 Pulse Ox O2 Del Method O2 Del Method 09/04/24 09:09 Room Air 09/04/24 09:08 Room Air 09/04/24 07:16 Room Air 09/04/24 05:00 95 Room Air 09/04/24 02:39 Room Air 09/04/24 00:15
[2024-09-04] MEDS ORDERED: ENOXAPARIN 1 MG/KG SC SCH (12:15)
[2024-09-04] MEDS: SOD PHOSPHATE/SOD BIPHOSPHATE ENEMA 132 ML BTL PR STA (13:04)
[2024-09-04] MEDS: ENOXAPARIN 150 MG/ML SYR SQ SCH (15:07)
[2024-09-05 00:14] VITALS: RESP 18
[2024-09-05 06:36] LABS: Basophils # (auto) 0.09 K/uL (0.00-0.20); Basophils % (auto) 0.8 %; Eosinophils # (auto) 0.58 K/uL (0.00-0.50); Eosinophils % (auto) 5.4 %; Hematocrit (blood only) 39.8 % (42.0-52.0); Hemoglobin 12.6 g/dl (14.0-18.0); Immature Granulocytes # (auto) 0.07 K/uL (0.01-0.20); Immature Granulocytes % (auto) 0.6 %; Lymphocytes # (auto) 3.58 K/uL (1.20-3.40); Lymphocytes % (auto) 33.1 %; Mean Corpuscular Hemoglobin 24.4 pg (25.0-34.0); Mean Corpuscular Hgb Conc 31.7 g/dL (32.0-36.0); Mean Corpuscular Volume 77.1 fL (80.0-100.0); Mean Platelet Volume 11.6 fL (9.4-12.4); Monocytes # (auto) 0.69 K/uL (0.11-0.59); Monocytes % (auto) 6.4 %; Neutrophils # (auto) 5.82 K/uL (1.40-6.50); Neutrophils % (auto) 53.7 %; Platelet Count 240 K/uL (130-400); RDW Coefficient of Variation 20.2 % (11.5-14.5); RDW Standard Deviation 54.8 fL (36.4-46.3); Red Blood Count 5.16 M/uL (4.70-6.10); White Blood Count 10.83 K/ul (4.8-10.8)
[2024-09-05 06:55] LABS: Albumin Level 3.5 gm/dl (3.4-5.0); BUN Creatinine Ratio 21.9 (10-20); Bilirubin,Total 0.5 mg/dl (0.2-1.0); Calcium 9.5 mg/dl (8.6-10.3); Creatinine Clr Calc Pharmacy 148.6 ml/min; Globulin 3.4 gm/dl (2.5-4.0); Magnesium 1.7 mg/dl (1.7-2.4); Phosphorus 3.4 mg/dl (2.5-4.9); Potassium 3.8 mmol/L (3.5-5.1); Total Protein 6.9 gm/dl (6.0-8.3)
[2024-09-05 06:57] LABS: Anisocytosis Present
[2024-09-05 07:04] LABS: INR 1.2 (0.9-1.1); Prothrombin Time 12.7 Seconds (9.0-12.0)
--- NOTE | 2024-09-05 11:26 | Discharge Summary ---
Discharge Summary Date of Service September 05, 2024 Principal Dx & Hospital Course #1 = Principal Diagnosis (1) Coffee ground emesis: Plan 54-year-old male with past medical history significant for COPD, morbid obesity, type 2 diabetes, chronic diastolic heart failure, History of CAD/STEMI per records,hypertension, hyperlipidemia, history of PE on Coumadin, mood disorder, medication noncompliance, current active smoker, chronic opioid abuse currently on oxycodone, chronic indwelling Lloyd catheter, history of subdural hematoma, history of subarachnoid hemorrhage, history of iron deficiency anemia, depression with anxiety, venous insufficiency, Chronic pain on buprenorphine, drug-seeking behavior per records, history of MRSA/VRE and multiple recurrent admissions who presented with episodes of coffee-ground emesis. Patient stated he was very drowsy and family found it difficult to arouse him (possibly from UTI per patient) and finally woke up the day [employer]. Did not eat much. On day of arrival had multiple episodes of coffee-ground emesis which prompted him to come to the ER. Has some abdominal discomfort. Did not move his bowels for last few days. Still had some nausea. Coffee-ground emesis Hemoglobin stable, 14.6 on admission, currently stable at 13.2 Patient on Coumadin and INR was 2.2 on admission Held Coumadin, s/p one dose of vitamin K 2.5 mg IV ppi initially currently on po GI consulted, recommended/stated the following: "Patient has had no further vomiting. Will stop protonix drip at this time and transition to 40mg bid. He was taking two different PPIs as an outpatient. we discussed on discharged that he should stop omeprazole and just start protonix 40mg po bid. " Continue to monitor H/H, INR- warfarin has since been resumed. INR has remained in normal limits despite resumption of warfarin on 08/31. Extra dose of warfarin 2.5mg given on 09/03/24. Pantoprazole 40 mg twice daily on discharge. Patient advised to discontinue omeprazole INR still subtherapeutic at 1.0, started on Lovenox bridge on 09/04, to be discharged with bridge which pt states he has used in the past. INR 1.2 on discharge Will need coumadin clinic followup on discharge PCP followup as well Abnormal EKG EKG on admission with noted normal sinus rhythm, RBBB, diffuse nonspecific ST elevations as well as T wave inversions Troponinx3 normal/ unremarkable Echo was technically difficult. However it noted no pericardial effusion and that the left ventricle size and EF was normal. Right ventricle was not seen and no comment could be made on the valves or their function Serial EKGs Cardiology consulted, recommended/stated the following: - no cardiac testing warranted at this time. PCP followup CAUTI UTI complicated Chronic indwelling Lloyd catheter Chronic leukocytosis History of recurrent UTIs with chronic leukocytosis during each admission UA on admission unremarkable and recommended repeat. Repeat UA growing contaminant Corynebacterium On IV Rocephin, we will discontinue given unremarkable urine culture without significant growth. Patient requesting to have urinary catheter replaced. States that it was last placed by home nursing incorrectly and had to be replaced at the last admission by urology. Urology consult was placed with urology advising that nursing can have the catheter changed. This was communicated to nursing staff who agreed to change the catheter on 08/31/2024. PCP and Urology followup after discharge Nose lesion Patient notes a recent history of trauma to the nose Notes persistent erythematous area on bridge of nose on the right where his glasses sits Concern for infection, as needed mupirocin ordered Concern for inflammation, as needed hydrocortisone ordered Patient notes that he is concerned about using the topical treatments as they can smear his glasses Patient noted improvement with as needed treatments on 08/31/2024 Improved on discharge- pt declines prn meds for home use Malaise URI Symptoms Resp Viral panel on 09/01 negative Chest XRAY with no acute changes Symptomatic treatment at this time PCP followup after discharge RUQ Pain patient noting persistent right upper quadrant pain CT abdomen pelvis from 08/28 noting no acute pathology PCP follow-up History of PE Held Coumadin for above presentation Given GI recs, warfarin resumed on 08/31/2024 INR has remained in normal limits despite resumption on 08/31. Extra dose of warfarin 2.5mg given on 09/03/24. INR remains persistently at 1.0 started on Lovenox bridge on 09/04, to be discharged with bridge which pt states he has used in the past Will need coumadin clinic followup on discharge PCP followup as well Morbid obesity DARIA Use oxygen 4L in the nighttime PCP follow-up for possible underlying DARIA States currently on Ozempic for the last 3 weeks PCP follow-up History of COPD Continue home inhalers and nebs Chronic diastolic CHF Continue home diuretics with potassium and magnesium supplements Was on gentle fluids Monitor for volume overload History of CAD Held aspirin for GI bleed and restart as soon as possible Continue beta-nasim, Imdur and statin Aspirin resumed on 08/31/2024 Chronic pain On buprenorphine And oxycodone as needed Also on gabapentin and Cymbalta Discussion with patient about institutional/pharmacy requirements for IV Tylenol such as n.p.o. status or inability to tolerate oral intake. Patient has been tolerating oral intake quite well for the past 2 days. Will defer on IV Tylenol at this time. Hypertension On beta-nasim and Imdur and diuretics PCP followup Diabetes Holding p.o. medications Insulin sliding scale resume home meds of discharge with pcp f/u Constipation PRN laxatives, stool softeners and enemas scheduled Colace and scheduled enema today. also scheduled MiraLAX CT abdomen pelvis done on admission with no noted acute bowel pathology or significant stool burden. Patient is passing gas and tolerating diet without issue. pt with bowel movement on 09/02/24, 09/04/24 Chronic Nausea PRN phenergan Ongoing tobacco abuse Encourage cessation Nicotine patch Chest Pain Pt with episode of chest pain on 09/03, noting he can't go home EKG unremarkable for acute ischemia Urgent trop normal, even lower than previous PRN pain meds as above Continue ppi and famotidine Continue to monitor Improved Notes For Next Care Provider Needs Coumadin Clinic Follow up 1-2 days after discharge for INR monitoring and warfarin adjustments as needed. Pt received Vit K when he presented with concern for hematemesis. Medication Changes From Visit Per Cardiology: KCl 40mEq in AM, 20mEq qhs Per GI: pantoprazole 40mg BID, STOP omeprazole Admission HPI Per Admitting Provider 54-year-old male with past medical history significant for COPD, morbid obesity, type 2 diabetes, chronic diastolic heart failure, History of CAD/STEMI per records,hypertension, hyperlipidemia, history of PE on Coumadin, mood disorder, medication noncompliance, current active smoker, chronic opioid abuse, chronic indwelling Lloyd catheter, history of subdural hematoma, history of subarachnoid hemorrhage, history of iron deficiency anemia, depression with anxiety, venous insufficiency, Chronic pain on buprenorphine, drug-seeking behavior per records, history of MRSA/VRE and multiple recurrent admissions presents with coffee- ground emesis. Patient states last 3 to 4 days he was very drowsy and family found difficult to arouse him possibly from UTI per patient and finally woke up yesterday. Did not eat much. Today had multiple episodes of coffee-ground emesis which prompted him to come to the ER. Has some abdominal discomfort. Did not moved his bowels for last few days. Still has some nausea. Denies chest pain or shortness of breath. Denies fevers. Denies headache. Vision is okay. No runny nose or sore throat. No cough. Ambulating with a cane. Currently resting comfortably and hemodynamically stable. Past medical history. As mentioned above. Past surgical history. Colonoscopy. EGD. EGD with endoscopic ultrasound. Foot surgery. Repair of extension tendon finger left side. Repair of left hand joint. Social history. Smokes 2 packs a day for last 32 years. No current use of alcohol. History of DUIs. Opioid dependence. Family history. Sister had breast cancer. Father aneurysm. Maternal grandfather had AZ in his 50s. Maternal grandmother AZ in 80s. Paternal grandfather had COPD. Admission Exam Per Admitting Provider General-Not in distress Head- atraumatic Eyes- PERRL. ENT- oropharynx clear Neck- supple, no JVD. Lungs- clear to auscultation no wheezing or crackles Heart- regular rate and rhythm; no murmur, no gallop. Abdomen- normal bowel sounds, soft, nontender, no distension Extremities-b/l lower extremity edema present,no erythema seen. Neuro- alert, oriented PERRL, no facial palsy; no dysarthria; moves extremities Discharge Exam General: Alert, oriented. No acute distress HEENT: NC/AT, improved erythematous lesion on nose CV: RRR Resp: Breath sounds clear but decreased bilaterally, no increased effort of breathing Abdomen: Soft, tender in RUQ Extremities: chronic skin changes noted on lower extremities bilaterally. Updated Medication List Medication Instructions Recorded Confirmed Type Lactobacillus acidophilus 1 1,000 mmu cells PO DAILY 08/29/24 08/29/24 History billion cell tablet albuterol sulfate 90 mcg/actuation 2 inh inhalation Q4H PRN Shortness 08/29/24 1 10/30/23 History aerosol inhaler Of Breath Or Wheezing aspirin 81 mg tablet,delayed 81 mg PO DAILY 08/29/24 08/29/24 History release atorvastatin 80 mg tablet 80 mg PO PM 08/29/24 08/29/24 History budesonide 0.5 mg/2 mL suspension 0.5 mg inhalation BID 08/29/24 08/29/24 History for nebulization buprenorphine HCl 8 mg sublingual 8 mg sublingual UD 08/29/24 08/29/24 History tablet cyclobenzaprine 10 mg tablet 10 mg PO BID PRN muscle spasms 08/29/24 08/29/24 History docusate sodium 100 mg capsule 100 mg PO BID 08/29/24 08/29/24 History (Colace) duloxetine 60 mg capsule,delayed 60 mg PO DAILY 08/29/24 08/29/24 History release famotidine 20 mg tablet 20 mg PO DAILY 08/29/24 08/29/24 History ferrous sulfate 325 mg (65 mg 325 mg PO DAILY 08/29/24 08/29/24 History iron) tablet finasteride 5 mg tablet 5 mg PO DAILY 08/29/24 08/29/24 History fluticasone 250 mcg-salmeterol 50 1 inh inhalation BID 08/29/24 08/29/24 History mcg/dose blistr powdr for inhalation folic acid 1 mg tablet 1 mg PO DAILY 08/29/24 08/29/24 History gabapentin 600 mg tablet 600 mg PO TID 08/29/24 08/29/24 History glipizide 10 mg tablet 10 mg PO UD 08/29/24 08/29/24 History ipratropium 0.5 mg-albuterol 3 mg 3 ml inhalation TID 08/29/24 08/29/24 History (2.5 mg base)/3 mL nebulization soln isosorbide dinitrate 30 mg tablet 30 mg PO DAILY 08/29/24 08/29/24 History magnesium oxide 400 mg (241.3 mg 400 mg PO DAILY 08/29/24 08/29/24 History magnesium) tablet metoprolol succinate 50 mg 75 mg PO BID 08/29/24 08/29/24 History tablet,extended release 24 hr omeprazole 20 mg capsule,delayed 20 mg PO DAILY 08/29/24 08/29/24 History release ondansetron HCl 4 mg tablet 4 mg PO TID PRN Nausea And Vomiting 08/29/2408/29 History oxycodone 10 mg tablet 10 mg PO BID PRN Pain, Severe 08/29/24 08/29/24 History pantoprazole 40 mg tablet,delayed 40 mg PO DAILY 08/29/24 08/29/24 History release potassium chloride 20 mEq 20 meq PO BID 08/29/24 08/29/24 History tablet,extended release spironolactone 25 mg tablet 25 mg PO DAILY 08/29/24 08/29/24 History tamsulosin 0.4 mg capsule 0.4 mg PO DAILY 08/29/24 08/29/24 History torsemide 100 mg tablet 100 mg PO DAILY 08/29/24 08/29/24 History umeclidinium 62.5 mcg/actuation 1 inh inhalation DAILY 08/29/24 08/29/24 History blister powder for inhalation (Incruse Ellipta) warfarin 4 mg tablet 4 mg PO UD 08/29/24 08/29/24 History pantoprazole 40 mg tablet,delayed 40 mg PO BID #60 tabs 09/04/24 Rx release potassium chloride 20 mEq 20 meq PO HS #30 tabs 09/04/24 Rx tablet,extended release(part/cryst) potassium chloride 20 mEq 40 meq (2 x 20 mEq) PO QAM #60 tabs 09/04/24 Rx tablet,extended release(part/cryst) enoxaparin 150 mg/mL subcutaneous 150 mg subcut Q12H #10 mL 09/05/24 Rx syringe (Lovenox) Hospital Stay Data Consultations 08/29/24 00:14 ED Decision to Admit Stat 08/29/24 08:00 Consult Cardiology Routine Consult Gastroenterology Routine Diagnostic Imagining Performed 08/28/24 18:31 CT abd pelvis wo con Stat Abdomen/Pelvis CT 08/28/24 18:31 Exam(s): CT ABDOMEN + PELVIS Without Contrast EXAM: CT Abdomen and Pelvis Without Intravenous Contrast CLINICAL HISTORY: Reason for exam: abd pain, vomiting dark material. TECHNIQUE: Axial computed tomography images of the abdomen and pelvis without intravenous contrast. CTDI is 34 mGy and DLP is 1736 mGy-cm. Automated exposure control was utilized for the study. A dose lowering technique was utilized adhering to the principles of ALARA. COMPARISON: No relevant prior studies available. FINDINGS: ABDOMEN: Liver: Unremarkable. Gallbladder and bile ducts: Unremarkable. Pancreas: Unremarkable. Spleen: Unremarkable. Adrenals: Unremarkable. Kidneys and ureters: Unremarkable. No obstructing stones. No hydronephrosis. Stomach and bowel: No bowel obstruction. No inflammatory changes. PELVIS: Appendix: Status post appendectomy. Bladder: Lloyd catheter within the bladder. Reproductive: Unremarkable as visualized. ABDOMEN and PELVIS: Intraperitoneal space: Unremarkable. No free air. No significant fluid collection. Bones/joints: No acute fracture. Soft tissues: Small fat-containing umbilical hernia. Vasculature: Unremarkable. Lymph nodes: Unremarkable. IMPRESSION: No acute findings in the abdomen or pelvis. Electronically signed by: Jovon Almanzar MD 08/28/24 22:51 PM Chest X-Ray 08/28/24 18:31 EXAM: Radiograph of the Chest 1 View INDICATION: Vomiting and abdominal pain. TECHNIQUE: Frontal view of the chest. COMPARISON: 07/31/2024 FINDINGS: Lungs and pleural spaces: Stable small pleural effusions and mild pulmonary vascular congestion. No confluent consolidation. No pneumothorax. Heart: Stable cardiomegaly. Loop recorder present. Mediastinum: Normal contour. Bones/joints: Degenerative changes noted throughout the spine. No acute osseous abnormality seen. Soft tissues: No abnormality noted. No radiopaque foreign body noted. Upper abdomen: No free intraperitoneal air subjacent to the diaphragms. IMPRESSION: Stable small pleural effusions and mild pulmonary vascular congestion. ACT 112: Negative or not required by law. Electronically signed by Rachel Morgan 08-28-2024 6:54 PM Chest X-Ray 09/01/24 09:54 XR chest 1V portable CLINICAL HISTORY: SOB TECHNIQUE: Single frontal radiograph of the chest was obtained. Comparison: Comparison is made to chest radiograph 08/28/2024 FINDINGS: Exam is limited by underpenetration. Stable battery-powered device. The cardiomediastinal silhouette is normal. The lungs are clear. No evidence of pleural effusion or pneumothorax. IMPRESSION: No acute abnormalities and in particular no radiographic evidence of pneumonia. ACT 112: Negative or not required by law. Electronically signed by: Armand Tobar M.D. 09/01/2024 10:20 AM Pending Results Patient Have Any Pending Studies at Discharge: No Discharge Instructions Given to Patient (Per Discharging Provider) Sharad Eid were seen by the respiratory care specialist who recommends that you continue with pantoprazole 40 mg twice a day at home. Stop taking you omeprazole that you have at home. You were also seen by the machine edge bander who made changes to your potassium regimen. Please continue taking it as prescribed listed below. You will need very close follow-up with the Coumadin clinic to ensure that your INR is back to therapeutic levels. We ae discharging you home with Lovenox to take with your warfarin until your INR is in the therapeutic range. Your primary care provider will be able to help you with that. You received antibiotics while in the hospital for a presumed urinary tract infection but your urine culture did not have any significant growth. Therefore you do not need antibiotics on discharge. Please keep close follow-up with your primary care provider and specialists after discharge. Please keep close follow up with your primary care provider after discharge. Please do not hesitate to come back to the emergency room if your symptoms worsen or return. It was a pleasure taking care of you while you were here. Total Time Total Time Spent Total Time Spent (In Minutes): 65
[2024-09-05 11:45] VITALS: TEMP 98.4; O2SAT 95
[2024-09-05 11:55] VITALS: BP 107/62; PULSE 73
== END 2024-09-05 12:15 | disposition home health service (06) | DRG 699 ==
LOC: ED 17:44 → EDINP 08-29 01:39 → INTOOBSV 08-29 01:39 → SUATTDRO 08-29 01:39 → 2S 08-29 05:39 → 2W 09-04 09:05
DX: I45.10 Unspecified right bundle-branch block; Z88.1 Allergy status to other antibiotic agents; F17.210 Nicotine dependence, cigarettes, uncomplicated; Y92.019 Unspecified place in single-family (private) house as the place of occurrence of the external cause; Z91.041 Radiographic dye allergy status; F11.10 Opioid abuse, uncomplicated; G47.33 Obstructive sleep apnea (adult) (pediatric); Z91.148 Patient's other noncompliance with medication regimen for other reason; K92.0 Hematemesis; Y74.2 Prosthetic and other implants, materials and accessory general hospital and personal-use devices associated with adverse incidents; T83.511A Infection and inflammatory reaction due to indwelling urethral catheter, initial encounter; E78.5 Hyperlipidemia, unspecified; I50.32 Chronic diastolic (congestive) heart failure; Z79.899 Other long term (current) drug therapy; E11.9 Type 2 diabetes mellitus without complications; Z86.72 Personal history of thrombophlebitis; Z79.82 Long term (current) use of aspirin; Z79.01 Long term (current) use of anticoagulants; I11.0 Hypertensive heart disease with heart failure; N39.0 Urinary tract infection, site not specified; E66.01 Morbid (severe) obesity due to excess calories; Z79.84 Long term (current) use of oral hypoglycemic drugs; J96.11 Chronic respiratory failure with hypoxia

== ENCOUNTER 2024-10-11 17:45 | Inpatient (IN) ==
--- NOTE | 2024-10-11 17:59 | Emergency Department Note ---
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 lowering technique was utilized adhering to the principles of ALARA. COMPARISON: Prior head CT from March 14, 2024. FINDINGS: Brain: Unremarkable. No hemorrhage. No significant white matter disease. No edema. Ventricles: Unremarkable. No ventriculomegaly. Bones/joints: Unremarkable. No acute fracture. Soft tissues: Unremarkable. Sinuses: Unremarkable as visualized. No acute sinusitis. Mastoid air cells: Unremarkable as visualized. No mastoid effusion. IMPRESSION: No evidence of acute intracranial pathology. Electronically signed by: Akanksha Hernandez MD 10/11/24 22:33 PM Discharge Plan Visit Data Chief Complaint: Confusion Stated Complaint: Confusion x4 days / 30lb weight gain in 3 days ED Provider: Bladimir Portillo Discharge Problem: Weakness, Leukocytosis, Acute UTI, Shortness of breath Forms Stand Alone Forms: My [facility] [place] [employer] Prescriptions Prescriptions: No Action furosemide 40 mg tablet 40 mg PO BID gabapentin 800 mg tablet 800 mg PO TID cyclobenzaprine 10 mg tablet 10 mg PO BID PRN (Reason: muscle spasms) fluticasone propion-salmeterol 250-50 mcg/dose blister with device 1 inh INHALATION BID atorvastatin 80 mg tablet 80 mg PO PM metoprolol succinate 50 mg tablet extended release 24 hr 75 mg PO BID ondansetron HCl 4 mg tablet 4 mg PO TID PRN (Reason: Nausea And Vomiting) glipizide 10 mg tablet 10 mg PO BID Rx Instructions: one tab bid 30minutes before meals spironolactone 25 mg tablet 25 mg PO QAM warfarin 4 mg tablet 4 mg PO UD Rx Instructions: 2.5mg on Wednesday, and Wednesday and 5mg on rest of the days per anticoagulation clinic isosorbide dinitrate 30 mg tablet 30 mg PO QAM famotidine 20 mg tablet 20 mg PO HS magnesium oxide 400 mg (241.3 mg magnesium) tablet 400 mg PO QAM ferrous sulfate 325 mg (65 mg iron) tablet 325 mg PO QAM budesonide 0.5 mg/2 mL suspension for nebulization 0.5 mg inhalation BID folic acid 1 mg tablet 1 mg PO QAM albuterol sulfate 90 mcg/actuation HFA aerosol inhaler 2 inh INHALATION Q4H PRN (Reason: Shortness Of Breath Or Wheezing) finasteride 5 mg tablet 5 mg PO QAM buprenorphine HCl 8 mg tablet, sublingual 8 mg SUBLINGUAL UD Rx Instructions: (take 8mg in the morning,at 1400 take 4 mg then at night take 8mg) duloxetine 60 mg capsule,delayed release(DR/EC) 60 mg PO QAM tamsulosin 0.4 mg capsule 0.4 mg PO QAM oxycodone 10 mg tablet 10 mg PO BID PRN (Reason: Pain, Severe) aspirin 81 mg Tablet,Delayed Release (Dr/Ec) 81 mg PO QAM docusate sodium [Colace] 100 mg Capsule 100 mg PO BID Lactobacillus acidophilus 1 billion cell Tablet 1,000 mmu cells PO QAM potassium chloride 20 mEq Tablet,Er Particles/Crystals 20 meq PO HS Qty: 30 0RF potassium chloride 20 mEq Tablet,Er Particles/Crystals 40 meq PO QAM Qty: 60 0RF pantoprazole 40 mg Tablet,Delayed Release (Dr/Ec) 40 mg PO BID Qty: 60 0RF Referrals Referrals: Kehinde Mc MD [Primary Care Provider] - Discharge Problem: Leukocytosis Qualifiers: Leukocytosis type: unspecified Qualified Code(s): D72.829 - Elevated white blood cell count, unspecified
[2024-10-11] MEDS: methylPREDNISolone 125 MG/2 ML VIAL IV STA (18:42)
[2024-10-11 18:44] LABS: Basophils # (auto) 0.12 K/uL (0.00-0.20); Basophils % (auto) 0.6 %; Eosinophils # (auto) 0.48 K/uL (0.00-0.50); Eosinophils % (auto) 2.4 %; Hemoglobin 11.5 g/dl (14.0-18.0); Immature Granulocytes # (auto) 0.45 K/uL (0.01-0.20); Immature Granulocytes % (auto) 2.3 %; Lymphocytes # (auto) 3.82 K/uL (1.20-3.40); Lymphocytes % (auto) 19.3 %; Mean Corpuscular Hgb Conc 32.9 g/dL (32.0-36.0); Mean Platelet Volume 10.4 fL (9.4-12.4); Monocytes # (auto) 1.03 K/uL (0.11-0.59); Monocytes % (auto) 5.2 %; Neutrophils # (auto) 13.86 K/uL (1.40-6.50); Neutrophils % (auto) 70.2 %; Platelet Count 295 K/uL (130-400); RDW Coefficient of Variation 21.4 % (11.5-14.5); RDW Standard Deviation 60.9 fL (36.4-46.3); Red Blood Count 4.43 M/uL (4.70-6.10); White Blood Count 19.76 K/ul (4.8-10.8)
[2024-10-11] MEDS: oxyCODONE HCL IR 5 MG TAB (IMMEDIATE RELEASE) PO STA (18:45)
--- NOTE | 2024-10-11 18:45 | XRay Report ---
Technique: 2 frontal views of the chest were obtained Comparison is made with the parents have dated 08/28/2024 Findings: There is worsened diffuse interstitial prominence, concerning for pulmonary edema. The heart is mildly enlarged. A cardiac device is again seen. No pleural effusion or pneumothorax is seen. There is no definite pulmonary nodule. No fracture is noted. No foreign body is seen Impression: Cardiomegaly and pulmonary edema Electronically signed by Leodan Cristobal 10-11-2024 6:44 PM
[2024-10-11] MEDS: ALBUT/IPRATROP 3MG/0.5MG NEB 3 ML VIAL NEB STA (18:50)
[2024-10-11 19:01] LABS: Anisocytosis Present
[2024-10-11 19:02] LABS: Albumin Globulin Ratio 1.2 (0.9-2); Albumin Level 3.2 gm/dl (3.4-5.0); BUN Creatinine Ratio 9.4 (10-20); Bilirubin,Total 0.4 mg/dl (0.2-1.0); Calcium 8.6 mg/dl (8.6-10.3); Creatinine Clr Calc Pharmacy 139.3 ml/min; Globulin 2.7 gm/dl (2.5-4.0); Potassium 3.7 mmol/L (3.5-5.1); Total Protein 5.9 gm/dl (6.0-8.3)
[2024-10-11 19:08] LABS: Troponin I High Sensitivity 3.8 pg/ml (0-20)
[2024-10-11 19:10] LABS: INR 2.8 (0.9-1.1); Prothrombin Time 27.7 Seconds (9.0-12.0)
[2024-10-11 19:52] LABS: Adenovirus PCR Not Detected (NotDetected); Bordetella parapertussis PCR Not Detected (NotDetected); Bordetella pertussis PCR Not Detected (NotDetected); Chlamydia pneumoniae PCR Not Detected (NotDetected); Coronavirus 229E PCR Not Detected (NotDetected); Coronavirus CoV-2 (COVID19)PCR Not Detected (NotDetected); Coronavirus HKU1 PCR Not Detected (NotDetected); Coronavirus NL63 PCR Not Detected (NotDetected); Coronavirus OC43PCR Not Detected (NotDetected); Human Metapneumovirus PCR Not Detected (NotDetected); Influenza A PCR Not Detected (NotDetected); Influenza B PCR Not Detected (NotDetected); Mycoplasma pneumoniae PCR Not Detected (NotDetected); Parainfluenza Virus 1 PCR Not Detected (NotDetected); Parainfluenza Virus 2 PCR Not Detected (NotDetected); Parainfluenza Virus 3 PCR Not Detected (NotDetected); Parainfluenza Virus 4 PCR Not Detected (NotDetected); Respiratory Syncytial VirusPCR Not Detected (NotDetected); Rhinovirus/Enterovirus PCR Not Detected (NotDetected)
[2024-10-11] MEDS ORDERED: GLUCAGON FOR INJ 1 MG VIAL SQ PRN (20:22)
[2024-10-11] MEDS ORDERED: CARBOHYDRATES FOR HYPOGLYCEMIA PO PRN (20:22)
[2024-10-11] MEDS ORDERED: GLUCOSE 10 TAB/TUBE PO PRN (20:22)
[2024-10-11] MEDS ORDERED: ACETAMINOPHEN 325 MG TAB PO PRN (20:22)
[2024-10-11] MEDS ORDERED: POLYETHYLENE (MIRALAX) 17 GM PACK PO PRN (20:22)
[2024-10-11] MEDS ORDERED: MAGNESIUM HYDROXIDE SUSP 30 ML UDC PO PRN (20:22)
[2024-10-11] MEDS ORDERED: PHARMACY GLYCEMIC MGMT CONSULT PRN (20:22)
[2024-10-11] MEDS ORDERED: DEXTROSE 50% 50 ML SYRINGE IV PRN (20:22)
[2024-10-11] MEDS ORDERED: GLUCOSE 40% GEL 15 GM TUBE PO PRN (20:22)
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
[2024-10-11] MEDS: cefTRIAXone SODIUM 2,000 MG/50 ML BAG IV STA (22:02)
[2024-10-11] MEDS: NICOTINE 21 MG/24 HR TDSY TD SCH (22:02)
[2024-10-11] MEDS: FUROSEMIDE 40 MG/4 ML VIAL IV STA (22:02)
[2024-10-11] MEDS: INSULIN ASPART PER UNIT CHARGE SC SCH (22:02)
[2024-10-11] MEDS: LANTUS PER UNIT CHARGE SQ ONE (22:31)
--- NOTE | 2024-10-11 22:33 | CT Scan Report ---
Exam(s): CT HEAD Without Contrast EXAM: CT Head Without Intravenous Contrast CLINICAL HISTORY: Reason for exam: confusion. TECHNIQUE: Axial computed tomography images of the head/brain without intravenous contrast. CTDI is 38 mGy and DLP is 702.46 mGy-cm. Automated exposure control was utilized for the study. A dose lowering technique was utilized adhering to the principles of ALARA. COMPARISON: Prior head CT from March 14, 2024. FINDINGS: Brain: Unremarkable. No hemorrhage. No significant white matter disease. No edema. Ventricles: Unremarkable. No ventriculomegaly. Bones/joints: Unremarkable. No acute fracture. Soft tissues: Unremarkable. Sinuses: Unremarkable as visualized. No acute sinusitis. Mastoid air cells: Unremarkable as visualized. No mastoid effusion. IMPRESSION: No evidence of acute intracranial pathology. Electronically signed by: Akanksha Hernandez MD 10/11/24 22:33 PM
[2024-10-11 22:52] LABS: Appearance Urine Clear (Clear); Bacteria Urine Automated None Seen (None Seen); Bilirubin Urine Negative (Negative); Blood Urine 2+ (Negative); Color Urine Yellow; Epithelial Cell Urine Auto 0-2 /hpf (0-2); Glucose Urine UA Negative (Negative); Ketones Urine Trace (Negative); Leukocyte Esterase Urine 2+ (Negative); Nitrite Urine Negative (Negative); Protein Urine Trace (Negative); RBC Urine Automated >20 /hpf (0-2); Specific Gravity Urine 1.016 (1.000-1.030); Urobilinogen Urine Negative (Negative); WBC Urine Automated 21-50 /hpf (0-5)
[2024-10-12] MEDS ORDERED: ALBUT/IPRATROP 3MG/0.5MG NEB 3 ML VIAL NEB PRN (00:32)
--- OUTSIDE RECORDS SUMMARY | 2024-10-12 00:41 | External Medical Summary ---
Author Name Unknown Address Unknown Organization [id number] [id number] [place] [id number] Laboratory Report Ordering Provider Test Date Status ABATULIO 10/10/2024 08:05:00 Final Standing order for pt/inr. < br/>Please draw pt/inr every 1 to 4 weeks as requested
Results to [facility]

Warfarin Therapy
INR: 2.0-3.0 conventional anticoagulation
INR: 2.5-3.5 high intensity anticoagulation Observation Date Value Abnormality Reference (Units ) Status PT 10/10/2024 08:05:00 23.0 Above high normal 11 .6-15.2 (seconds) Final INR 10/10/2024 08:05:00 2.0 Above high normal 0. 8-1.2 Final Performing Location [facility] [address] [place] [id number]
--- OUTSIDE RECORDS SUMMARY | 2024-10-12 00:41 | External Medical Summary | Summary of Care ---
Author Name Unknown Organization [facility] Address [address] [place] [address] Phone [phone] Care Team Providers Care Data Warehouse Manager Name Role Phone Kehinde Mc MD Primary Care Provider [phone] Reason for Visit * Reason Onset Date Comments Fax 07/05/2024 Encounter Details Date Type Department Care Team ([facility] st Contact Info) Description 07/05/2024 Telephone [facility] DEPT CLOSED - 09/07/24 [address] [place] [id number] Kehinde Mc MD [address] [place] [address] Fax Allergies Active Allergy Reactions Criticality Noted [...] as of this encounter (statuses as of 10/04/2024) Medications polyethylene glycol 3350 (MIRALAX) 255 gram [...] Tablet before bedtime. 022 Active nystatin (NYSTOP) 937596 UNIT/GM powderIndications: Cutaneous candidiasis Apply topically to affected area 3 times a day. 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 25 Tab 5 Active Additional Information Patient not taking.Reported [...] 2 Sprays daily . 16 mL 1 022 Active Albuterol Sulfate HFA 108 (90 Base) MCG/ACT Inhalation Aerosol SolutionIndication s:COPD, group C, by GOLD 2017 classification ([facility]),COPD, group D, by GOLD 2017 classification ([facility]) USE 2 PUFFS BY MOUTH EVERY 4 HOURS NEEDED SHORT OF BREATH 6.7 g 5 Active Magnesium Oxide 400 (241.3 Mg) MG Oral TabletIndications: Coronary artery disease involving muckleshoot coronary artery of [...] for steroid coverage when warranted 1 Each Active Ipratropium-Albute rol 0.5-2.5 (3) MG/3ML Inhalation [...] daily as needed for Constipation. 30 Capsule Active Budesonide 0.25 MG/2ML Inhalation Suspension (Pulmicort) Inhale 0.5 mg via nebulizer in the morning and 0.5 mg in the evening. Active predniSONE 10 MG Oral Tablet (Deltasone) Take 1 Tablet by mouth in the morning. Follow taper directions. Active Tamsulosin HCl 0.4 MG Oral Capsule (Flomax) TAKE 2 CAPSULES EVERY MORNING 180 Capsule Active True Metrix Meter w/Device KitIndications:Typ e 2 diabetes mellitus with hemoglobin A1c goal of less than 8.0% ([facility]) Use 3 times daily as directed 1 Kit 023 Active True Metrix Blood Glucose Test In Vitro Strip (Glucose Blood)Indications: Type 2 diabetes mellitus with hemoglobin A1c goal of less than 8.0% ([facility]) Use 3 times daily as directed 300 Strip 3 023 Active TRUEplus Lancets 33GIndications:Typ e 2 diabetes mellitus with hemoglobin A1c goal of less than 8.0% ([facility]) Use 3 times daily as [...] MG Oral TabletIndications: Coronary artery disease involving muckleshoot coronary artery of muckleshoot heart without angina pectoris TAKE 1 TABLET BY MOUTH IN THE MORNING. 30 Tablet 5 024 Active glipiZIDE 10 MG Oral Tablet (Glucotrol)Indicat ions:Diabetes mellitus with nephropathy (HCC) TAKE ONE TABLET BY MOUTH 2 TIMES A DAY 30 MINUTES BEFORE MEALS 180 Tablet 3 024 Active Atorvastatin Calcium 80 MG Oral Tablet (Lipitor) TAKE 1 TABLET BY MOUTH IN THE AFTERNOON 90 Tablet 3 024 Active Cyclobenzaprine HCl 10 MG Oral Tablet (Flexeril)Indicati ons:Chronic pain syndrome TAKE 1 TABLET TWICE DAILY NEEDED FOR MUSCLE SPASM(S) 60 Tablet 5 024 Active FreeStyle Js 3 Daisy DeviceIndications: Type 2 diabetes mellitus with hemoglobin A1c goal of less than 8.0% ([facility]) Use as directed. 1 Each 1 024 Active DULoxetine HCl 60 MG Oral Capsule Delayed Release Particles (Cymbalta)Indicati ons:Chronic bilateral low back pain without sciatica,DM type 2 with diabetic peripheral neuropathy (HCC) Take 1 Capsule by mouth in the morning. 90 Capsule 1 024 Active Metoprolol Succinate ER 50 MG Oral Tablet Extended Release 24 Hour (toPROL XL)Indications:Cor onary artery disease involving muckleshoot coronary artery of muckleshoot heart without angina pectoris TAKE 1 & 1/2 TABLETS by mouth 2 TIMES A DAY 90 Tablet 5 024 Active Famotidine 20 MG Oral Tablet (Pepcid)Indication s:Gastroesophageal reflux disease without esophagitis Take 1 Tablet by mouth at bedtime. 30 Tablet 5 024 Active Furosemide 40 MG Oral Tablet (Lasix) Take 1 Tablet by mouth 2 times a day. 60 Tablet 5 024 Active Finasteride 5 MG Oral Tablet (Proscar)Indicatio ns:BPH with obstruction/lower urinary tract symptoms TAKE ONE TABLET BY MOUTH EVERY DAY IN THE MORNING 30 Tablet 5 024 Active Pantoprazole Sodium 40 MG Oral Tablet Delayed Release (Protonix) Take 1 Tablet by mouth in the morning. 30 Tablet 5 024 Active Ferrous Sulfate 325 (65 Fe) MG Oral Tablet (FEOSOL)Indication s:Iron deficiency anemia due to chronic blood loss Take 1 Tab by mouth daily with breakfast. 90 Tab 1 020 2023 Discontinued(R efill) Spironolactone 25 MG Oral Tablet (Aldactone) Take 1 Tablet by mouth in the morning. In the morning.. 90 Tablet 2 023 2024 Discontinued(R efill) Folic Acid 1 MG Oral Tablet Take 1 Tablet by mouth in the morning. 90 Tablet 2 023 2023 Discontinued(R efill) Potassium Chloride Terra ER 20 MEQ Oral Tablet Extended ReleaseIndications :Hypokalemia TAKE ONE TABLET EVERY MORNING AND AT BEDTIME 180 Tablet 2 023 2023 Discontinued(R efill) Torsemide 100 MG Oral Tablet (Demadex) Take 1 Tablet by mouth in the morning. 024 2023 Discontinued oxyCODONE HCl 10 MG Oral Tablet (Roxicodone)Indica tions:Chronic pain of right knee Take 1 Tablet by mouth 2 times a day as needed for Pain, Moderate or Pain, Severe. 30 Tablet 024 2023 Discontinued(R efill) Omeprazole 20 MG Oral Capsule Delayed Release (PriLOSEC) TAKE ONE CAPSULE BY MOUTH 1 HOUR BEFORE THE 1ST MEAL OF THE DAY 30 Capsule 5 024 2023 Discontinued(R efill) FreeStyle Sj 3 Sensor Use as directed every 14 days. 6 Each 3 024 2024 Discontinued(R efill) Ondansetron HCl 4 MG Oral Tablet (Zofran)Indication s:Nausea TAKE 1 TABLET BY MOUTH EVERY 8 HOURS NEEDED NAUSEA 20 Tablet 1 024 2023 Discontinued(R efill) Gabapentin 600 MG Oral Tablet (Neurontin) Take 1 Tablet by mouth in the morning and 1 Tablet at noon and 1 Tablet before bedtime. 270 Tablet 1 024 2023 Discontinued documented as of this encounter (statuses as of 10/04/2024) Active Problems Problem Noted Date Diagnosed Date [...] hemorrhage 10/04/2020 Coronary artery disease invo lving muckleshoot heart without angina pectoris 10/04/2020 COPD, [...] as of this encounter (statuses as of 10/04/2024) Resolved Problems Problem Noted Date Diagnosed Date [...] of kidney 08/20/2015 8 Overview (08/21/2015): right, [place] CT Vitamin D deficiency 01/31/2015 018 Body [...] as of this encounter (statuses as of 10/04/2024) Immunizations Name Administration Dates Next Due COVID-19 mRNA, LNP-s, No Pre serve, 2-Dose Series (G[employer]uch[employer]) 01/02/2021,12/05/2020 DTP Vaccine 07/19/2017,04/03/2014 Hepatitis B, 20+ [...] of Assessment Author No 03/28/2024 9:07 PM EMYT Janice Tanner, RN * Are you blind or do you have serious difficulty seeing, even when wearing glasses? Answer Date of Assessment Author No 03/28/2024 9:07 PM EMYT Janice Tanner, RN * Do you have serious difficulty walking or climbing stairs? (5 years old or older) Answer Date of Assessment Author Yes 03/28/2024 9:07 PM EMYT Janice Tanner, RN * Do you have difficulty dressing or bathing? (5 years old or older) Answer Date of Assessment Author Yes 03/28/2024 9:07 PM EDT Janice Tanner, RN * Because of a physical, mental, or emotional condition, do you have difficulty doing errands alone such as visiting a doctors office or shopping? (15 years old or older) Answer Date of Assessment Author Yes 03/28/2024 9:07 PM EDT Janice Tanner, RN documented as of this encounter Mental Status * Because of a physical, mental, or emotional condition, do you have serious difficulty concentrating, remembering, or making decisions? (5 years old or older) Answer Entry Date Author No 03/28/2024 9:07 PM EDT Janice Tanner, RN documented in this encounter Miscellaneous Notes * Telephone Encounter - [facility] - 07/05/2024 4:46 PM EDT Renae from [employer] called they will be faxing over a form that needs filled out for pt's free style js. Ref # [id number] documented in this encounter Plan of Treatment Upcoming Encounters Date Type Department Care Team (Late st Contact Info) Description 10/10/2024 7:00 AM EST Laboratory Lab Mobile Phlebotomy [facility] [address] [facility] [place] [address] Mvmg, Gml Mobile Home Draw [address] [facility] [place] [address] 10/11/2024 6:00 AM EST Anticoagulation Centralized Clinical Pharmacy Services, Ciera Griffin [address] [place] [address] [place] [address] [place] [address] Health Maintenance Due Date Last Done Comments DISCUSS TOBACCO CESSATION (REFER TO SMARTSET #[id number]) 1970 HIV Screening 1985 Pneumococcal Vaccine: 50+ Years (2 of 2 - PCV) 05/22/2010 05/22/2009 [...] 04/04/2024 Albumin/Creatinine Ratio 05/29/2025 05/29/2024, 03/21 GFR 08/28/2025 08/28/2024, 07/22, 05/15/2024, Additional history exists DTap/Tdap Vaccines (4 - Td or Tdap) 06/08/2029 06/08/2019, 07/19/2017, 04/03/2014 Alpha-1 Antitrypsin Completed 12/16/2021 HPV (Gardasil) Vaccine Aged Out No lo nger eligible based on patient's age to complete this topic MENINGOCOCCAL (MENACTRA/MENVEO) Aged Out No longer eligible based on patient's age to complete this topic documented as of this encounter Medical Devices Implanted Type Area Body Cleaner Device Identifier Shelf Expiration Date Model / Serial / Lot Tube Flex 3.0x2.5 [id number] - [id number] Implanted:Qty: 1 on 12/07/2014 by Juancarlos Trinidad MD at [facility] Left: Finger LANDON : ORTHOPAEDICS 11/18/2015 [id number] / / [id number] documented as of this encounter Advance Directives [...] (no specific identity) Health Care Power of Resource Conservation Specialist Care Teams Data Warehouse Manager Relationship Specialty Start Date End Date Kehinde Mc MD PCP - General Internal Medicine 03/28/24 documented as of this encounter
--- OUTSIDE RECORDS SUMMARY | 2024-10-12 00:42 | External Medical Summary ---
Author Name Unknown Address Unknown Organization [id number] [address] [place] [id number] Laboratory Report Ordering Provider Test Date Status ABATULIO 10/03/2024 07:56:00 Final Standing order for pt/inr. < br/>Please draw pt/inr every 1 to 4 weeks as requested
Results to [facility] Anticoagulation Clinic

Warfarin Therapy
INR: 2.0-3.0 conventional anticoagulation
INR: 2.5-3.5 high intensity anticoagulation Observation Date Value Abnormality Reference (Units ) Status PT 10/03/2024 07:56:00 21.5 Above high normal 11 .6-15.2 (seconds) Final INR 10/03/2024 07:56:00 1.8 Above high normal 0. 8-1.2 Final Performing Location [facility] [address] [place] [id number]
--- OUTSIDE RECORDS SUMMARY | 2024-10-12 00:42 | External Medical Summary ---
Author Name Unknown Address Unknown Organization [facility] [address] [place] [id number] Laboratory Report Ordering Provider Test Date Status ABADOMENICALIONEL 09/26/2024 08:33:00 Final Standing order for pt/inr. < br/>Please draw pt/inr every 1 to 4 weeks as requested
Results to [facility] Anticoagulation Clinic

Warfarin Therapy
INR: 2.0-3.0 conventional anticoagulation
INR: 2.5-3.5 high intensity anticoagulation Observation Date Value Abnormality Reference (Units ) Status PT 09/26/2024 08:33:00 15.7 Above high normal 11 .6-15.2 (seconds) Final INR 09/26/2024 08:33:00 1.2 0.8-1.2 Final Performing Location [facility] [address] [place] [id number]
--- OUTSIDE RECORDS SUMMARY | 2024-10-12 00:42 | External Medical Summary | Summary of Care ---
Author Name Unknown Organization [facility] Address [address] [place] [address] Phone [phone] Care Team Providers Care Hogshead Hand Name Role Phone Kehinde Mc MD Primary Care Provider [phone] Reason for Visit * Reason Comments Dosage Adjustment Via Phone (anticoag Cl inic) Encounter Details Date Type Department Care Team ([facility] st Contact Info) Description 09/26/2024 6:00 PM EST Anticoagulation Centralized Clinical Pharmacy Services, Ciera Griffin [address] [place] [address] [place] [address] [place] [address] History of pulmonary embolism* Allergies Active Allergy [...] as of this encounter (statuses as of 09/26/2024) Medications polyethylene glycol 3350 (MIRALAX) 255 gram [...] before bedtime. 04/19/20 22 Active nystatin (NYSTOP) 452787 UNIT/GM powderIndications:C utaneous candidiasis Apply topically to [...] MG Oral TabletIndications:C oronary artery disease involving bois forte coronary artery [...] for Constipation. 30 Capsule 09/29/19 23 Active Budesonide 0.25 MG/2ML Inhalation Suspension [...] MG Oral TabletIndications:C oronary artery disease involving bois forte coronary artery of bois forte heart without angina pectoris TAKE 1 TABLET [...] 5 05/30/20 24 Active FreeStyle Js 3 Manvel DeviceIndications:T ype 2 diabetes mellitus with hemoglobin A1c goal of less than 8.0% ([facility]) Use as directed. 1 Each 1 05/30/20 24 Active DULoxetine HCl 60 MG Oral Capsule Delayed Release Particles (Cymbalta)Indicatio ns:Chronic bilateral low back pain without sciatica,DM type 2 with diabetic peripheral neuropathy (HCC) Take 1 Capsule by mouth in the morning. 90 Capsule 1 05/30/20 24 Active Metoprolol Succinate ER 50 MG Oral Tablet Extended Release 24 Hour (toPROL XL)Indications:Freddie nary artery disease involving bois forte coronary artery [...] morning. 30 Tablet 5 06/26/20 24 Active Folic Acid 1 MG Oral Tablet Take 1 Tablet by mouth in the morning. 90 Tablet 2 08/10/20 24 Active Ferrous Sulfate 325 (65 Fe) MG Oral Tablet (Feosol)Indications :Iron deficiency anemia due to chronic blood loss Take 1 Tablet by mouth daily with breakfast. 90 Tablet 1 08/10/20 24 Active oxyCODONE HCl 10 MG Oral Tablet (Roxicodone)Indicat ions:Chronic pain of right knee Take 1 Tablet by mouth 2 times a day as needed for Pain, Moderate or Pain, Severe. 30 Tablet 08/10/20 24 Active Dextromethorphan-gu aiFENesin 10-100 MG/5ML Oral Liquid (Robitussin DM) Take 5 mL by mouth every 6 hours as needed for Cough. 120 mL 5 08/14/20 24 Active Incruse Ellipta 62.5 MCG/ACT Inhalation Aerosol Powder Breath Activated (umeclidinium Darby) Inhale 1 Puff by mouth in the [...] NAUSEA 20 Tablet 1 08/28/20 24 Active Potassium Chloride ER 20 MEQ Oral Tablet Extended Release Take 1 Tablet by mouth in the morning. Active Enoxaparin Sodium 150 MG/ML Injection Solution Prefilled Syringe (Lovenox) Inject 150 mg under the skin in the morning and 150 mg before bedtime. 09/05/20 24 Active Gabapentin 800 MG Oral Tablet (Neurontin) Take 1 Tablet by mouth in the morning and 1 Tablet at noon and 1 Tablet before bedtime. 90 Tablet 5 09/07/20 24 Active FreeStyle Js 3 SensorIndications:T ype 2 diabetes mellitus with hemoglobin A1c goal of less than 8.0% ([facility]) Use as directed every 14 days. 6 Each 3 09/22/19 25 Active Spironolactone 25 MG Oral Tablet (Aldactone) Take 1 Tablet by mouth in the morning. In the morning.. 90 Tablet 3 09/22/19 25 Active documented as of this encounter (statuses as of 09/26/2024) Active Problems Problem Noted Date Diagnosed Date [...] hemorrhage 10/04/2020 Coronary artery disease invo lving bois forte heart without angina pectoris 10/04/2020 [...] as of this encounter (statuses as of 09/26/2024) Resolved Problems Problem Noted Date Diagnosed Date [...] of kidney 08/20/2015 8 Overview (08/21/2015): right, [place] CT Vitamin D deficiency 01/31/2015 018 Body [...] as of this encounter (statuses as of 09/26/2024) Immunizations Name Administration Dates Next Due COVID-19 mRNA, LNP-s, No Pre serve, 2-Dose Series ([employer]) 01/02/2021,12/05/2020 DTP Vaccine 07/19/2017,04/03/2014 Hepatitis B, 20+ [...] documented in this encounter Progress Notes * Aarti Caballero CPhT - 09/26/2024 2:38 PM EST Contacts Contact Date/Time Type Contact Phone/Fax 09/26/2024 02:35 PM EST Phone (Outgoing) Stanton Milner (Self) [phone] (H) Spoke to Patient Subjective Patient Findings [...] date communicated as noted by Pharmacist: Yes AARTI CABALLERO CPhT 09/26/2024, 2:38 PM * Keren Sanchez [facility] - 09/26/2024 2:30 PM EST Images from the original note were not included. Coumadin Clinic (region specific) Objective Current Warfarin Dose As of 09/26/2024 Warfarin maintenance plan: 2.5 mg (5 mg x 0.5) every Tue, Micki, Sat; 5 mg (5 mg x 1) all other days INR Result As of 09/26/2024 INR goal: 2.0-3.0 INR used for dosin.2 (09/26/2024) Assessment & Plan Warfarin Plan As of 09/26/2024 Full warfarin instructions: 09/26: 5 mg; Otherwise 2.5 mg every Tue, Micki, Sat; 5 mg all other days Next INR check: 10/03/2024 Repeat PT/INR in 1 week(s) Weekly dose: not changed Additional Dosing Information: Description L([facility]) - pt prefers Tues L at this time Tech to contact patient with dose instructions as noted. Keren Sanchez RPh 09/26/2024, 2:31 PM documented in this encounter Plan of Treatment Upcoming Encounters Date Type Department Care Team (Late st Contact Info) Description 10/03/2024 7:10 AM EST Laboratory Lab Mobile Phlebotomy [facility] [address] [employer] [facility] [place] [address] [facility], Gml Mobile Home Draw [address] [place] [address] 10/04/2024 6:00 AM EST Anticoagulation Centralized Clinical Pharmacy Services, Ciera Griffin [address] [place] [address] [place] [address] [place] [address] Health Maintenance Due Date Last Done Comments DISCUSS TOBACCO CESSATION (REFER TO SMARTSET #0145) 1970 HIV Screening 1985 Pneumococcal Vaccine: 50+ [...] this encounter Medical Devices Implanted Type Area Racing Driver Device Identifier Shelf Expiration Date Model / Serial / Lot Tube Flex 3.0x2.5 [id number] - [id number] Implanted:Qty: 1 on 12/07/2014 by Juancarlos Trinidad MD at [facility] Left: Finger LANDON : ORTHOPAEDICS 11/18/2015 [id number] / / [id number] documented as of this encounter Visit Diagnoses [...] (no specific identity) Health Care Power of Plumbing Drafter Care Teams Hogshead Hand Relationship Specialty Start Date End Date Kehinde Mc MD PCP - General Internal Medicine 03/28/24 documented as of this encounter
--- OUTSIDE RECORDS SUMMARY | 2024-10-12 00:42 | External Medical Summary | Summary of Care ---
Author Name Unknown Organization [facility] Address [address] [place] [address] Phone [phone] Care Team Providers Care Timber Trimmer Name Role Phone Kehinde Mc MD Primary Care Provider [phone] Reason for Visit * Reason Comments Dosage Adjustment Via Phone (anticoag Cl inic) Encounter Details Date Type Department Care Team ([facility] Contact Info) Description 10/04/2024 6:00 AM EST Anticoagulation Centralized Clinical Pharmacy Services, Ciera Griffin [address] [place] [address] [place] [address] [place] [address] History of pulmonary embolism* Allergies Active Allergy [...] before bedtime. 04/19/20 22 Active nystatin (NYSTOP) 564737 UNIT/GM powderIndications:C utaneous candidiasis Apply topically to [...] MG Oral TabletIndications:C oronary artery disease involving northway coronary artery of northway heart without angina pectoris Take by mouth [...] MG Oral TabletIndications:C oronary artery disease involving northway coronary artery of northway heart without angina pectoris TAKE 1 TABLET [...] 5 05/30/20 24 Active FreeStyle Js 3 Bailey DeviceIndications:T ype 2 diabetes mellitus with hemoglobin [...] Hour (toPROL XL)Indications:Freddie nary artery disease involving northway coronary artery of northway heart without angina pectoris TAKE 1 & [...] MCG/ACT Inhalation Aerosol Powder Breath Activated (umeclidinium [place]) Inhale 1 Puff by mouth in the [...] than 8.0% ([facility]) Use as directed every 14 days. 6 [...] hemorrhage 10/04/2020 Coronary artery disease invo lving northway heart without angina pectoris 10/04/2020 COPD, group [...] of kidney 08/20/2015 8 Overview (08/21/2015): right, [place] CT Vitamin D deficiency 01/31/2015 018 Body [...] mRNA, LNP-s, No Pre serve, 2-Dose Series ([employer]) 01/02/2021,12/05/2020 DTP Vaccine 07/19/2017,04/03/2014 Hepatitis B, 20+ [...] documented in this encounter Progress Notes * Alysa Srinivasan visitor services representative - 10/04/2024 9:28 AM EST Contacts Contact Date/Time Type Contact Phone/Fax 10/04/2024 09:25 AM EST Phone (Outgoing) Stanton Milner (Self) [phone] (H) spoke to Estrella Subjective Patient Findings Negatives: Signs/symptoms of bleeding, Change in health, Change in activity, Upcoming invasive procedure, Missed doses, Extra doses, Change in medications, Change in diet/appetite, Bruising Advised patient to contact Anticoagulation Clinic if any unusual bruising or bleeding, recent illness, changes in medication, or questions/concerns. PT/INR results, Coumadin dose instructions, and next PT/INR date communicated as noted by Pharmacist: Yes ARTEM Boone 10/04/2024, 9:28 AM * Keren Sanchez [facility] - 10/04/2024 9:15 AM EST Images from the original note were not included. Coumadin Clinic (region specific) Objective Current Warfarin Dose As of 10/04/2024 Warfarin maintenance plan: 2.5 mg (5 mg x 0.5) every e, Micki, Sat; 5 mg (5 mg x 1) all other days INR Result As of 10/04/2024 INR goal: 2.0-3.0 INR used for dosin.8 (10/03/2024) Assessment & Plan Warfarin Plan As of 10/04/2024 Full warfarin instructions: 10/04: 10 mg; Otherwise 2.5 mg every Tue, Micki, Sat; 5 mg all other days Next INR check: 10/10/2024 Repeat PT/INR in 1 week(s) Weekly dose: not changed Additional Dosing Information: Description GML([facility]) - pt prefers Tues GML at this time Tech to contact patient with dose instructions as noted. Keren Sanchez RPh 10/04/2024, 9:16 AM documented in this encounter Plan of Treatment Upcoming Encounters Date Type Department Care Team (Late st Contact Info) Description 10/11/2024 6:00 AM EST Anticoagulation Centralized Clinical Pharmacy Services, Ciera Griffin [address] [place] [address] [place] [address] [facility], [address] [place] [address] Health Maintenance Due Date Last Done Comments DISCUSS TOBACCO CESSATION (REFER TO SMARTSET #0875) 1970 HIV Screening 1985 Pneumococcal Vaccine: 50+ [...] this encounter Medical Devices Implanted Type Area Gravel Inspector Device Identifier Shelf Expiration Date Model / Serial / Lot Tube Flex 3.0x2.5 [id number] - [id number] Implanted:Qty: 1 on 12/07/2014 by Juancarlos Trinidad MD at [facility] Left: Finger [employer]ON : ORTHOPAEDICS 11/18/2015 [id number] / / [id number] documented as of this encounter Visit Diagnoses [...] (no specific identity) Health Care Power of Bank Secrecy Act Officer Care Teams Timber Trimmer Relationship Specialty Start Date End Date Kehinde Mc MD PCP - General Internal Medicine 03/28/24 documented as of this encounter
--- OUTSIDE RECORDS SUMMARY | 2024-10-12 00:43 | External Medical Summary | Summary of Care ---
Author Name Unknown Organization [facility] Address [address] [place] [address] Phone [phone] Care Team Providers Care Relay Telegrapher Name Role Phone Kehinde Mc MD Primary Care Provider [phone] Reason for Visit * Reason Onset Date Comments Advice 09/22/2024 Encounter Details Date Type Department Care Team (Late st Contact Info) Description 09/22/2024 Refill [facility] [address] [place] [address] Kehinde Mc MD [address] [place] [address] Type 2 diabetes mellitus with hemoglobin A1c goal of less than 8.0% ([facility])* Allergies Active Allergy Reactions Criticality Noted Date [...] as of this encounter (statuses as of 09/22/2024) Medications polyethylene glycol 3350 (MIRALAX) 255 gram [...] at noon and 1 Tablet before bedtime. Active nystatin (NYSTOP) 727664 UNIT/GM powderIndications: Cutaneous candidiasis Apply topically to affected area 3 times a day. 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 ([facility]) Place 1 Tab under the tongue every [...] s:COPD, group C, by GOLD 2017 classification ([facility]),COPD, group D, by GOLD 2017 classification (HCC) USE 2 PUFFS BY MOUTH EVERY 4 HOURS NEEDED SHORT OF BREATH 6.7 g 5 Active Magnesium Oxide 400 (241.3 Mg) MG Oral TabletIndications: Coronary artery disease involving [place] coronary artery of [place] heart without angina pectoris Take by mouth [...] less than 8.0% ([facility]) Use 3 times daily as directed 1 Kit 023 Active True Metrix Blood Glucose Test In Vitro Strip (Glucose Blood)Indications: Type 2 diabetes mellitus with hemoglobin A1c goal of less than 8.0% ([facility]) Use 3 times daily as directed 300 Strip 3 023 Active TRUEplus Lancets 33GIndications:Typ e 2 diabetes mellitus with hemoglobin A1c goal of less than 8.0% ([facility]) Use 3 times daily as directed 300 [...] MG Oral TabletIndications: Coronary artery disease involving [place] coronary artery of [place] heart without angina pectoris TAKE 1 TABLET [...] Tablet 5 024 Active FreeStyle Js 3 [place] DeviceIndications: Type 2 diabetes mellitus with hemoglobin A1c goal of less than 8.0% ([facility]) Use as directed. 1 Each 1 024 Active DULoxetine HCl 60 MG Oral Capsule Delayed Release Particles (Cymbalta)Indicati ons:Chronic bilateral low back pain without sciatica,DM type 2 with diabetic peripheral neuropathy (HCC) Take 1 Capsule by mouth in the morning. 90 Capsule 1 024 Active Metoprolol Succinate ER 50 MG Oral Tablet Extended Release 24 Hour (toPROL XL)Indications:Cor onary artery disease involving [place] coronary artery of [place] heart without angina pectoris TAKE 1 & [...] DAY IN THE MORNING 30 Tablet 5 Active Pantoprazole Sodium 40 MG Oral Tablet Delayed Release (Protonix) Take 1 Tablet by mouth in the morning. 30 Tablet 5 024 Active Folic Acid 1 MG Oral Tablet Take 1 Tablet by mouth in the morning. 90 Tablet 2 Active Ferrous Sulfate 325 (65 Fe) MG Oral Tablet (Feosol)Indication s:Iron deficiency anemia due to chronic blood loss Take 1 Tablet by mouth daily with breakfast. 90 Tablet 1 Active oxyCODONE HCl 10 MG Oral Tablet (Roxicodone)Indica tions:Chronic pain of right knee Take 1 Tablet by mouth 2 times a day as needed for Pain, Moderate or Pain, Severe. 30 Tablet 024 Active Dextromethorphan-g uaiFENesin 10-100 MG/5ML Oral Liquid (Robitussin DM) Take 5 mL by mouth every 6 hours as needed for Cough. 120 mL 5 024 Active Incruse Ellipta 62.5 MCG/ACT Inhalation Aerosol Powder Breath Activated (umeclidinium [place]) Inhale 1 Puff by mouth in the morning. 30 Each Active Azithromycin 250 MG Oral Tablet (Zithromax Z-Hector) Take two tablets by mouth on first day, then 1 tablet daily until gone 6 Tablet Active Ondansetron HCl 4 MG Oral Tablet (Zofran)Indication s:Nausea TAKE 1 TABLET BY MOUTH EVERY 8 HOURS NEEDED NAUSEA 20 Tablet 1 Active Potassium Chloride ER 20 MEQ Oral Tablet Extended Release Take 1 Tablet by mouth in the morning. Active Enoxaparin Sodium 150 MG/ML Injection Solution Prefilled Syringe (Lovenox) Inject 150 mg under the skin in the morning and 150 mg before bedtime. Active Gabapentin 800 MG Oral Tablet (Neurontin) Take 1 Tablet by mouth in the morning and 1 Tablet at noon and 1 Tablet before bedtime. 90 Tablet 5 Active FreeStyle Js 3 SensorIndications: Type 2 diabetes mellitus with hemoglobin A1c goal of less than 8.0% (HCC) Use as directed every 14 days. 6 Each 3 Active FreeStyle Js 3 Sensor Use as directed every 14 days. 6 Each 3 024 2024 Discontinued(R efill) Semaglutide(0.25 or 0.5MG/DOS) 2 MG/3ML Solution Pen-injector (Ozempic)Indicatio ns:DM type 2 with diabetic peripheral neuropathy (HCC),Diabetes mellitus with nephropathy (HCC) Inject 0.25 mg under the skin once a week for 14 days, THEN 0.5 mg once a week. 9.75 mL 024 2024 Discontinued documented as of this encounter (statuses as of 09/22/2024) Active Problems Problem Noted Date Diagnosed Date [...] hemorrhage 10/04/2020 Coronary artery disease invo lving [place]ki heart without angina pectoris 10/04/2020 COPD, group [...] as of this encounter (statuses as of 09/22/2024) Resolved Problems Problem Noted Date Diagnosed Date [...] of kidney 08/20/2015 8 Overview (08/21/2015): right, [place] Vitamin D deficiency 01/31/2015 018 Body [...] as of this encounter (statuses as of 09/22/2024) Immunizations Name Administration Dates Next Due COVID-19 [...] encounter Miscellaneous Notes * Addendum Note - Yarely Cuellar LPN - 09/22/2024 11:13 AM ESTAddended by: YARELY CUELLAR on: 09/22/2024 11:13 AM Modules accepted: Orders * Telephone Encounter - Yarely Cuellar LPN - 09/22/2024 11:09 AM EST Called pt. He states he is not longer taking the ozempic. Pt states that he needs a refill for Magnesium Oxide 400 (241.3 Mg) MG Oral Tablet and spironolactone 25 mg, order is pending. Please advise. * Telephone Encounter - Kehinde Mc MD - 09/22/2024 10:19 AM EST If he couldn't tolerate low dose ozempic, should not take it Ordered sensor * Telephone Encounter - Yeni Antonio LPN - 09/22/2024 10:08 AM EST Patient calling in stating that he is on Ozempic. He stated that when he first started taking the medication that he became sick, he ended up going to the hospital and was off the medication for a little bit and when he tried to take the medication again he became sick. He stated that his had symptoms since Wednesday, he is experiencing confusion and wants to discontinuethe medication as he does not like the way that it is making him feel. He stated that his Weight is 377lb. He said that he continues to lose weight as he has not seen below 400 lbs in years. He also needs a refill on his FreeStyle Js Sensor's, Pended for approval. Please advise * Telephone Encounter - Christie Rodriguez OSA - 09/22/2024 10:05 AM EST Reason for patient's call: Patient has questions about Ozempic & if he has any refills left forhis CGM sensors. Caller was transferred to Yeni at the nurse line. documented in this encounter Plan of Treatment Upcoming Encounters Date Type Department Care Team (Late st Contact Info) Description 09/26/2024 7:00 AM EST Laboratory Lab Mobile Phlebotomy [facility] [address] [place] [address] Mvmg, Gml Mobile Home Draw [address] [place] [address] 09/27/2024 6:00 AM EST Anticoagulation Centralized Clinical Pharmacy Services, Ciera Griffin [address] [place] [address] [facility], [facility] [address] [place] [address] Health Maintenance Due Date Last Done Comments DISCUSS TOBACCO CESSATION (REFER TO SMARTSET #2934) 1970 HIV Screening 1985 Pneumococcal Vaccine: 50+ [...] this encounter Medical Devices Implanted Type Area Patient Ombudsperson Device Identifier Shelf Expiration Date Model / Serial / Lot Tube Flex 3.0x2.5 [id number] - [id number] Implanted:Qty: 1 on 12/07/2014 by Juancarlos Trinidad MD at [facility] Left: Finger [employer]ANDON : ORTHOPAEDICS 11/18/2015 [id number] / / [id number] documented as of this encounter Visit Diagnoses Diagnosis Type 2 diabetes mellitus with hemoglobin A1c goal of less than 8.0% ([facility])- Primary documented in this encounter Advance Directives [...] (no specific identity) Health Care Power of Toy Parts Former Supervisor Care Teams Relay Telegrapher Relationship Specialty Start Date End Date Kehinde Mc MD PCP - General Internal Medicine 03/28/24 documented as of this encounter
--- OUTSIDE RECORDS SUMMARY | 2024-10-12 00:43 | External Medical Summary | Summary of Care ---
Author Name Unknown Organization [facility] Address [address] [place] [address] Phone [phone] Care Team Providers Care Database Analyst Name Role Phone Kehinde Mc MD Primary Care Provider [phone] Reason for Visit * Reason Onset Date Comments Pre Cert/Prior Auth 09/25/2024 Anderson sesay 3 Encounter Details Date Type Department Care Team (Late st Contact Info) Description 09/25/2024 Telephone [facility] [address] [facility] [place] [address] Kehinde Mc MD [address] [place] [address] Pre Cert/Prior Auth (Anderson ugarte 3) Allergies Active Allergy Reactions Criticality Noted Date [...] as of this encounter (statuses as of 09/25/2024) Medications polyethylene glycol 3350 (MIRALAX) 255 gram [...] before bedtime. 04/19/20 22 Active nystatin (NYSTOP) 076717 UNIT/GM powderIndications:C utaneous candidiasis Apply topically to affected area 3 times a day. 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 6 Each 3 09/22/19 25 Active Spironolactone 25 MG Oral Tablet (Aldactone) Take 1 Tablet by mouth in the morning. In the morning.. 90 Tablet 3 09/22/19 25 Active documented as of this encounter (statuses as of 09/25/2024) Active Problems Problem Noted Date Diagnosed Date [...] 01/24/2021 Opioid dependence, uncomplicated 01/22/2021 History of [place] (myocardial infarction) 01/22/2021 Morbid obesity with BMI [...] as of this encounter (statuses as of 09/25/2024) Resolved Problems Problem Noted Date Diagnosed Date [...] of kidney 08/20/2015 8 Overview (08/21/2015): right, [place] CT Vitamin D deficiency 01/31/2015 018 Body [...] as of this encounter (statuses as of 09/25/2024) Immunizations Name Administration Dates Next Due COVID-19 mRNA, LNP-s, No Pre serve, 2-Dose Series ([employer] 01/02/2021,12/05/2020 DTP Vaccine 07/19/2017,04/03/2014 Hepatitis B, [...] Telephone Encounter - Gina Clifford LPN - 09/25/2024 11:00 AM EST Prior auth started for [employer] 3 plus Sensor with [facility]'s Sylvester# [id number] documented in this encounter Plan of Treatment Upcoming Encounters Date Type Department Care Team (Late st Contact Info) Description 09/26/2024 7:00 AM EST Laboratory Lab Mobile Phlebotomy [facility] [address] [facility] [place] [employer], [place] [address] Mvmg, Gml Mobile Home Draw [address] [facility] [place] [employer], [place] [address] 09/27/2024 6:00 AM EST Anticoagulation Centralized Clinical Pharmacy Services, Ciera Griffin [address] [place] [address] [place] [address] [facility], [address] [place] [address] Health Maintenance Due Date Last Done Comments DISCUSS TOBACCO CESSATION (REFER TO SMARTSET #1155) 1970 HIV Screening 1985 Pneumococcal Vaccine: 50+ [...] this encounter Medical Devices Implanted Type Area [place] Device Identifier Shelf Expiration Date Model / Serial / Lot Tube Flex 3.0x2.5 [id number] - [id number] Implanted:Qty: 1 on 12/07/2014 by Juancarlos Trinidad MD at [facility] Left: Finger [employer]ON : ORTHOPAEDICS 11/18/2015 [id number] / / [id number] documented as of this encounter Advance Directives [...] (no specific identity) Health Care Power of Banking Teacher Care Teams Database Analyst Relationship Specialty Start Date End Date Kehinde Mc MD PCP - General Internal Medicine 03/28/24 documented as of this encounter
--- OUTSIDE RECORDS SUMMARY | 2024-10-12 00:43 | External Medical Summary | Summary of Care ---
Author Name Unknown Organization [facility] Address [address] [place] [address] Phone [phone] Care Team Providers Care Mechanical Drawing Teacher Name Role Phone Kehinde Mc MD Primary Care Provider [phone] Reason for Visit * Reason Onset Date Comments Advice 09/22/2024 Encounter Details Date Type Department Care Team (Late st Contact Info) Description 09/22/2024 Telephone [facility] [address] [place] [address] Kehinde Mc MD [address] [place] [address] Advice Allergies Active Allergy Reactions [...] 1 Tablet before bedtime. Active nystatin (NYSTOP) 548824 UNIT/GM powderIndications: Cutaneous candidiasis Apply topically to affected area 3 times a day. 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 1 Each 1 024 Active DULoxetine HCl 60 MG Oral Capsule Delayed Release Particles (Cymbalta)Indicati ons:Chronic bilateral low back pain without sciatica,DM type 2 with diabetic peripheral neuropathy (HCC) Take 1 Capsule by mouth in the morning. 90 Capsule 1 Active Metoprolol Succinate ER 50 MG Oral Tablet Extended Release 24 Hour (toPROL XL)Indications:Cor onary artery disease involving [place] coronary artery of [place] heart without angina pectoris TAKE 1 & 1/2 TABLETS by mouth 2 TIMES A DAY 90 Tablet 5 Active Famotidine 20 MG Oral Tablet (Pepcid)Indication s:Gastroesophageal reflux disease without esophagitis Take 1 Tablet by mouth at bedtime. 30 Tablet 5 Active Furosemide 40 MG Oral Tablet (Lasix) Take 1 Tablet by mouth 2 times a day. 60 Tablet 5 Active Finasteride 5 MG Oral Tablet (Proscar)Indicatio ns:BPH with obstruction/lower urinary tract symptoms TAKE ONE TABLET BY MOUTH EVERY DAY IN THE MORNING 30 Tablet 5 Active Pantoprazole Sodium 40 MG Oral Tablet Delayed Release (Protonix) Take 1 Tablet by mouth in the morning. 30 Tablet 5 Active Folic Acid 1 MG Oral [...] Moderate or Pain, Severe. 30 Tablet Active Dextromethorphan-g uaiFENesin 10-100 MG/5ML Oral Liquid (Robitussin DM) Take 5 mL by mouth every 6 hours as needed for Cough. 120 mL 5 Active Incruse Ellipta 62.5 MCG/ACT Inhalation Aerosol Powder Breath Activated (umeclidinium [place]) Inhale 1 Puff by mouth in the morning. 30 Each 11 Active Azithromycin 250 MG Oral Tablet (Zithromax [...] ([facility]) Use as directed every 14 days. [...] 01/24/2021 Opioid dependence, uncomplicated 01/22/2021 History of [place] (myocardial infarction) 01/22/2021 Morbid obesity with BMI [...] of kidney 08/20/2015 8 Overview (08/21/2015): right, [place] CT Vitamin D deficiency 01/31/2015 018 Body [...] EST Laboratory Lab Mobile Phlebotomy [facility] [address] [place] [address] Mvmg, Gml Mobile Home Draw [address] [place] [place] [address] 09/27/2024 6:00 AM EST Anticoagulation Centralized Clinical Pharmacy Services, Ciera Griffin [address] [place] [address] [place] [address] [place] [address] Health Maintenance Due Date Last Done Comments DISCUSS TOBACCO CESSATION (REFER TO SMARTSET #9366) 1970 HIV Screening 1985 Pneumococcal Vaccine: 50+ [...] this encounter Medical Devices Implanted Type Area Flight Engineer Helicopter Device Identifier Shelf Expiration Date Model / Serial / Lot Tube Flex 3.0x2.5 [id number] - [id number] Implanted:Qty: 1 on 12/07/2014 by Juancarlos Trinidad MD at [facility] Left: Finger LANDON : ORTHOPAEDICS 11/18/2015 [id number] / / [id number] documented as of this encounter Visit Diagnoses Diagnosis Type 2 diabetes mellitus with hemoglobin A1c goal of less than 8.0% (HCC)- Primary documented in this encounter Advance Directives [...] (no specific identity) Health Care Power of Intensive Care Nurse Care Teams Mechanical Drawing Teacher Relationship Specialty Start Date End Date Kehinde Mc MD PCP - General Internal Medicine 03/28/24 documented as of this encounter
--- OUTSIDE RECORDS SUMMARY | 2024-10-12 00:44 | External Medical Summary ---
Author Name Unknown Address Unknown Organization [facility] [address] [place] [address] Laboratory Report Ordering Provider Test Date Status TULIO TRONCOSO 09/11/2024 07:58:00 Final Standing order for pt/inr. < br/>Please draw pt/inr every 1 to 4 weeks as requested
Results to [facility]

Warfarin Therapy
INR: 2.0-3.0 conventional anticoagulation
INR: 2.5-3.5 high intensity anticoagulation Observation Date Value Abnormality Reference (Units ) Status PT 09/11/2024 07:58:00 23.3 Above high normal 11 .6-15.2 (seconds) Final INR 09/11/2024 07:58:00 2.0 Above high normal 0. 8-1.2 Final Performing Location [facility] [address] [place] [id number]
--- OUTSIDE RECORDS SUMMARY | 2024-10-12 00:44 | External Medical Summary | Summary of Care ---
Author Name Unknown Organization [facility] Address [address] [place] [address] Phone [phone] Care Team Providers Care Stationary Engineer Apprentice Name Role Phone Kehinde Mc MD Primary Care Provider [phone] Reason for Visit * Reason Comments Dosage Adjustment Via Phone (anticoag Cl inic) Encounter Details Date Type Department Care Team ([facility] Contact Info) Description 09/19/2024 6:00 AM EST Anticoagulation Centralized Clinical Pharmacy Services, Ciera Griffin [address] [place] [address] [place] [address] [place] [address] History of pulmonary embolism* Allergies Active Allergy [...] as of this encounter (statuses as of 09/19/2024) Medications polyethylene glycol 3350 (MIRALAX) 255 gram [...] before bedtime. 04/19/20 22 Active nystatin (NYSTOP) 240614 UNIT/GM powderIndications:C utaneous candidiasis Apply topically to affected area 3 times a day. 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 ([facility]) Place 1 Tab under the tongue every [...] MG Oral TabletIndications:C oronary artery disease involving [place] coronary artery of [place] heart without angina pectoris Take by [...] than 8.0% ([facility]) Use 3 times daily as directed 1 [...] than 8.0% ([facility]) Use 3 times daily as directed 300 [...] MG Oral TabletIndications:C oronary artery disease involving [place] coronary artery of [place] heart without angina pectoris TAKE 1 [...] 5 05/30/20 24 Active FreeStyle Js 3 [place] DeviceIndications:T ype 2 diabetes mellitus with hemoglobin A1c goal of less than 8.0% ([facility]) Use as directed. 1 Each 1 05/30/20 [...] Hour (toPROL XL)Indications:Freddie nary artery disease involving [place] coronary artery of [place] heart without angina pectoris TAKE 1 [...] MCG/ACT Inhalation Aerosol Powder Breath Activated (umeclidinium [place]) Inhale 1 Puff by mouth in the [...] bedtime. 90 Tablet 5 09/07/20 24 Active documented as of this encounter (statuses as of 09/19/2024) Active Problems Problem Noted Date Diagnosed Date [...] hemorrhage 10/04/2020 Coronary artery disease invo lving [place] heart without angina pectoris 10/04/2020 COPD, [...] as of this encounter (statuses as of 09/19/2024) Resolved Problems Problem Noted Date Diagnosed Date [...] of kidney 08/20/2015 8 Overview (08/21/2015): right, [place] CT Vitamin D deficiency 01/31/2015 018 Body [...] as of this encounter (statuses as of 09/19/2024) Immunizations Name Administration Dates Next Due COVID-19 mRNA, LNP-s, No Pre serve, 2-Dose Series ([employer]) 01/02/2021,12/05/2020 DTP Vaccine 07/19/2017,04/03/2014 Hepatitis B, 20+ [...] this encounter Progress Notes * Vanesa Pittman CPhT - 09/19/2024 9:45 AM EST Contacts Contact Date/Time Type Contact Phone/Fax 09/19/2024 09:44 AM EST Phone (Outgoing) Estrella Seth (Emergency Contact) [phone] (M) Spoke to Patient Subjective Patient Findings [...] date communicated as noted by Pharmacist: Yes Vanesa Pittman CPhT 09/19/2024, 9:45 AM * Keren Sanchez [facility] - 09/19/2024 8:47 AM EST Coumadin Clinic (region specific) Objective Current Warfarin Dose As of 09/19/2024 Warfarin maintenance plan: 2.5 mg (5 mg x 0.5) every Tue, Micki, Sat; 5 mg (5 mg x 1) all other days INR Result As of 09/19/2024 INR goal: 2.0-3.0 INR used for dosin.1 (09/18/2024) Assessment & Plan Warfarin Plan As of 09/19/2024 Full warfarin instructions: 2.5 mg every Tue, Micki, Sat; 5 mg all other days No change documented: Keren Sanchez RPh Next INR check: 09/26/2024 Repeat PT/INR in 1 week(s) Weekly dose: not changed Additional Dosing Information: Description GML(MTuTh) - pt prefers Tues GML at this time Tech to contact patient with dose instructions as noted. Keren Sanchez RPh 09/19/2024, 8:47 AM documented in this encounter Plan of Treatment Health Maintenance Due Date Last Done Comments DISCUSS TOBACCO CESSATION (REFER TO SMARTSET #9138) 1970 HIV Screening 1985 Pneumococcal Vaccine: 50+ [...] this encounter Medical Devices Implanted Type Area Peanut Separator Device Identifier Shelf Expiration Date Model / Serial / Lot Tube Flex 3.0x2.5 [id number] - [id number] Implanted:Qty: 1 on 12/07/2014 by Juancarlos Trinidad MD at [facility] Left: Finger [employer]ANDON : ORTHOPAEDICS 11/18/2015 [id number] / / [id number] documented as of this encounter Visit Diagnoses [...] (no specific identity) Health Care Power of Canoe Maker Care Teams Stationary Engineer Apprentice Relationship Specialty Start Date End Date Kehinde Mc MD PCP - General Internal Medicine 03/28/24 documented as of this encounter
--- OUTSIDE RECORDS SUMMARY | 2024-10-12 00:44 | External Medical Summary | Summary of Care ---
Author Name Unknown Organization [facility] Address [address] [place] [address] Phone [phone] Care Team Providers Care Commercial Project Manager Name Role Phone Kehinde Mc MD Primary Care Provider [phone] Reason for Visit * Reason Comments Dosage Adjustment Via Phone (anticoag Cl inic) Encounter Details Date Type Department Care Team ([facility] Contact Info) Description 09/07/2024 6:00 PM EST Anticoagulation Centralized Clinical Pharmacy Services, Ciear Griffin [address] [place] [address] [place] [address] [place] [address] History of pulmonary embolism* Allergies Active Allergy [...] as of this encounter (statuses as of 09/07/2024) Medications polyethylene glycol 3350 (MIRALAX) 255 gram [...] before bedtime. 04/19/20 22 Active nystatin (NYSTOP) 940981 UNIT/GM powderIndications:C utaneous candidiasis Apply topically to affected area 3 times a day. 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 ([facility]) Place 1 Tab under the tongue every [...] :COPD, group C, by GOLD 2017 classification ([facility]),COPD, group D, by GOLD 2017 classification ([facility]) USE 2 PUFFS BY MOUTH EVERY 4 HOURS NEEDED SHORT OF BREATH 6.7 g 5 11/25/19 Active Magnesium Oxide 400 (241.3 Mg) MG Oral TabletIndications:C oronary artery disease involving anvik coronary artery of anvik heart without angina pectoris Take by mouth [...] MG Oral TabletIndications:C oronary artery disease involving anvik coronary artery of anvik heart without angina pectoris TAKE 1 TABLET [...] 5 05/30/20 24 Active FreeStyle Js 3 Lutsen DeviceIndications:T ype 2 diabetes mellitus with hemoglobin A1c goal of less than 8.0% ([facility]) Use as directed. 1 Each 1 05/30/20 [...] Hour (toPROL XL)Indications:Freddie nary artery disease involving anvik coronary artery of anvik heart without angina pectoris TAKE 1 & [...] MCG/ACT Inhalation Aerosol Powder Breath Activated (umeclidinium [place]) Inhale 1 Puff by mouth in the [...] as of this encounter (statuses as of 09/07/2024) Active Problems Problem Noted Date Diagnosed Date [...] hemorrhage 10/04/2020 Coronary artery disease invo lving anvik heart without angina pectoris 10/04/2020 COPD, group [...] as of this encounter (statuses as of 09/07/2024) Resolved Problems Problem Noted Date Diagnosed Date [...] of kidney 08/20/2015 8 Overview (08/21/2015): right, [place] [facility] Vitamin D deficiency 01/31/2015 018 Body [...] as of this encounter (statuses as of 09/07/2024) Immunizations Name Administration Dates Next Due COVID-19 mRNA, LNP-s, No Pre serve, 2-Dose Series (Yipit) 01/02/2021,12/05/2020 DTP Vaccine 07/19/2017,04/03/2014 Hepatitis B, 20+ [...] in this encounter Progress Notes * Keren Sanchez, [facility] - 09/07/2024 12:35 PM EST Images from the original note were not included. Medication Therapy Disease Management - Anticoagulation Patient: Stanton Milner | : 1970 Subjective Contacts Contact Date/Time Type Contact Phone/Fax 09/07/2024 12:39 PM EST Phone (Outgoing) Stanton Milner (Self) [phone] (H) Left Message Patient-Reported Symptoms: Patient Findings Positives: Change in medications Comments: Pt recently discharge from [facility] on Lovenox bridge. Advised if pt still has Lovenox to continue injections today and tomorrow. Objective Current Warfarin Dose As of 09/07/2024 Warfarin maintenance plan: 2.5 mg (5 mg x 0.5) every e, Micki, Sat; 5 mg (5 mg x 1) all other days INR Result As of 09/07/2024 INR goal: 2.0-3.0 INR used for dosin.4 (09/07/2024) Assessment & Plan Warfarin Plan As of 09/07/2024 Full warfarin instructions: 09/07: 5 mg; Otherwise 2.5 mg every Tue, Micki, Sat; 5 mg all other days Next INR check: 09/11/2024 Repeat PT/INR in 4 day(s) Weekly dose: not changed Additional Dosing Information: Description 09/05- Lovenox bridge at [facility] D/C GML(MTuTh) - pt prefers Tues GML at this time Keren Sanchez RPh Clinical Pharmacist 09/07/2024, 12:39 PM documented in this encounter Plan of Treatment Upcoming Encounters Date Type Department Care Team (Late st Contact Info) Description 09/12/2024 6:00 AM EST Anticoagulation Centralized Clinical Pharmacy Services, Ciera Griffin [address] [place] [address] [place] [address] [facility], [address] [place] [address] Health Maintenance Due Date Last Done Comments DISCUSS TOBACCO CESSATION (REFER TO SMARTSET #9375) 1970 HIV Screening 1985 Pneumococcal Vaccine: Pediatrics [...] this encounter Medical Devices Implanted Type Area Latin Professor Device Identifier Shelf Expiration Date Model / Serial / Lot Tube Flex 3.0x2.5 [id number] - [id number] Implanted:Qty: 1 on 12/07/2014 by Juancarlos Trinidad MD at [place] [facility] [place] Left: Finger LANDON : ORTHOPAEDICS 11/18/2015 [id number] / / [id number] documented as of this encounter Visit Diagnoses [...] (no specific identity) Health Care Power of Business Administrator Care Teams Commercial Project Manager Relationship Specialty Start Date End Date Kehinde Mc MD PCP - General Internal Medicine 03/28/24 documented as of this encounter
--- OUTSIDE RECORDS SUMMARY | 2024-10-12 00:44 | External Medical Summary ---
Author Name Unknown Address Unknown Organization K0G[facility] [address] [place] [id number] Laboratory Report Ordering Provider Test Date Status TULIO TRONCOSO 09/18/2024 08:08:00 Final Standing order for pt/inr. < br/>Please draw pt/inr every 1 to 4 weeks as requested
Results to [facility]

Warfarin Therapy
INR: 2.0-3.0 conventional anticoagulation
INR: 2.5-3.5 high intensity anticoagulation Observation Date Value Abnormality Reference (Units ) Status PT 09/18/2024 08:08:00 23.8 Above high normal 11 .6-15.2 (seconds) Final INR 09/18/2024 08:08:00 2.1 Above high normal 0. 8-1.2 Final Performing Location [facility] [address] [place] [id number]
--- OUTSIDE RECORDS SUMMARY | 2024-10-12 00:44 | External Medical Summary | Summary of Care ---
Author Name Unknown Organization [facility] Address [address] [place] [address] Phone [phone] Care Team Providers Care Nascar Racer Name Role Phone Kehinde Mc MD Primary Care Provider [phone] Encounter Details Date Type Department Care Team (Late st Contact Info) Description 09/07/2024 11:20 AM EST Telemedicine [facility] [address] [place] [id number] Kehinde Mc MD [address] [place], [place] [id number] Hematemesis with nausea*; Gastroesophageal reflux disease without esophagitis; Chronic diastolic heart failure ([facility]); Type 2 diabetes mellitus with hemoglobin A1c goal of less than 8.0% ([facility]); Morbid obesity with BMI of 50.0-59.9, adult ([facility]); Opioid dependence, uncomplicated ([facility]); Complicated UTI (urinary tract infection); Diabetes mellitus with nephropathy ([facility]); Chronic pain syndrome; Chronic pain of right knee; Chronic bilateral low back pain without sciatica Allergies Active Allergy Reactions Criticality Noted Date [...] IN LIQUID ONCE DAILY. 527 g 5 Active Additional Information Patient not taking.Reported on 03/28/2024 Aspirin 81 MG Tablet Take 1 Tablet by mouth in the morning. Active Lactobacillus (LACTINEX) chewable tablet Take 1 Tablet by mouth in the morning and 1 Tablet at noon and 1 Tablet before bedtime. Active nystatin (NYSTOP) 099713 UNIT/GM powderIndications: Cutaneous candidiasis Apply topically to [...] s:COPD, group C, by GOLD 2017 classification ([facility]),COPD, group D, by GOLD 2017 classification ([facility]) USE 2 PUFFS BY MOUTH EVERY 4 HOURS NEEDED SHORT OF BREATH 6.7 g 5 022 Active Magnesium Oxide 400 (241.3 Mg) MG Oral TabletIndications: Coronary artery disease involving crow coronary artery of crow heart without angina pectoris Take by mouth [...] and 3 mL before bedtime. 360 mL 022 Active Fluticasone-Salmet aristeo 250-50 MCG/ACT Inhalation Aerosol Powder Breath Activated (Advair Diskus)Indications :COPD, severity to be determined (HCC),Wheezing,Obe sity hypoventilation syndrome (HCC) Inhale 1 Puff by mouth in the morning and 1 Puff before bedtime. 1 Each 2 022 Active Senna 8.6 MG Oral CapsuleIndications :Constipation, [...] MG Oral TabletIndications: Coronary artery disease involving crow coronary artery of crow heart without angina pectoris TAKE 1 TABLET [...] Tablet 5 024 Active FreeStyle Js 3 Greenwood DeviceIndications: Type 2 diabetes mellitus with hemoglobin A1c goal of less than 8.0% ([facility]) Use as directed. 1 Each 1 Active FreeStyle Js 3 Sensor Use as directed every 14 days. 6 Each 3 024 Active DULoxetine HCl 60 MG Oral Capsule Delayed Release Particles (Cymbalta)Indicati ons:Chronic bilateral low back pain without sciatica,DM type 2 with diabetic peripheral neuropathy (HCC) Take 1 Capsule by mouth in the morning. 90 Capsule 1 024 Active Metoprolol Succinate ER 50 MG Oral Tablet Extended Release 24 Hour (toPROL XL)Indications:Cor onary artery disease involving crow coronary artery of crow heart without angina pectoris TAKE 1 & [...] mouth in the morning. 90 Tablet 2 024 Active Ferrous Sulfate 325 (65 Fe) MG Oral Tablet (Feosol)Indication s:Iron deficiency anemia due to chronic blood loss Take 1 Tablet by mouth daily with breakfast. 90 Tablet 1 024 Active Semaglutide(0.25 or 0.5MG/DOS) 2 MG/3ML Solution Pen-injector (Ozempic)Indicatio ns:DM type 2 with diabetic peripheral neuropathy (HCC),Diabetes mellitus with nephropathy (HCC) Inject 0.25 mg under the skin once a week for 14 days, THEN 0.5 mg once a week. 9.75 mL 024 2024 Active oxyCODONE HCl 10 MG Oral [...] MCG/ACT Inhalation Aerosol Powder Breath Activated (umeclidinium [place]) Inhale 1 Puff by mouth in the [...] Tablet before bedtime. 90 Tablet 5 Active Gabapentin 600 MG Oral Tablet (Neurontin) [...] hemorrhage 10/04/2020 Coronary artery disease invo lving crow heart without angina pectoris 10/04/2020 COPD, group [...] of kidney 08/20/2015 8 Overview (08/21/2015): right, [place] [facility] Vitamin D deficiency 01/31/2015 018 Body [...] mRNA, LNP-s, No Pre serve, 2-Dose Series (Masterseek) 01/02/2021,12/05/2020 DTP Vaccine 07/19/2017,04/03/2014 Hepatitis B, 20+ [...] - Inhaled Oxygen Concentration - - Weight 172.4 kg (380 lb) 09/07/2024 11:31 AM EST Height - - Body Mass Index 51.54 04/03/2024 12:00 PM EDT documented in this [...] Progress Notes * Kehinde Mc MD - 09/07/2024 11:24 AM EST Attila Milner is a 54 year old male. No chief complaint on file. HPI: Patient location: HOME. I was in a hospital or clinic location. After connecting through [employer],patient was verified with two unique identifiers. 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 Methods to assure confidentiality were taken. Patient acknowledged consent and understanding of pr ivacy and security of the Telemedicine visit. The patient agreed to participate. Here for hospital f/u Admission Aug 29 Discharge Sep 05 Dx : hematemesis , on coumadin( hx of PE, morbid obesity BMI more than 50 ) N/V, hematemesis , has stopped Constipation , chronic, taking OTC daily And also was taking ozempic 0.25 mg weekly for type 2 DM, and morbid obesity Will resume Currently stomach sx is good Complicated UTI, chronic indwelling fontaine catheter Losing some weight , diet exercise - encouraged again INR check up every 2 wks, done today Known CH, CAD, HTN , has been stable Leg swelling, much less with diet change Chronic pain, taking opioid pain med, prn , exercise Neurontin for nerve pain, would like to increase dose , back to 800 mg since his CHF, leg swelling has been much better PMH: Patient Active Problem List Diagnosis Chronic pain syndrome Do not give narcotics Allergic rhinitis Depression with anxiety Hematuria Tobacco use disorder History of pulmonary embolism History of drug overdose Venous insufficiency Chronic diastolic heart failure (HCC) Unspecified mood (affective) disorder ([facility]) Personality disorder, unspecified ([facility]) Type 2 diabetes mellitus with hemoglobin A1c goal of less than 8.0% ([facility]) Iron deficiency anemia due to chronic blood loss Type 2 diabetes mellitus with diabetic dermatitis ([facility]) Supraventricular tachycardia ([facility]) DM type 2 with diabetic peripheral neuropathy ([facility]) Diabetes mellitus with nephropathy ([facility]) COPD, group D, by GOLD 2017 classification ([facility]) Morbid obesity with BMI of 50.0-59.9, adult ([facility]) History of subdural hematoma Gastroesophageal reflux disease without esophagitis History of subarachnoid hemorrhage Coronary artery disease involving crow heart without angina pectoris Opioid dependence, uncomplicated ([facility]) History of KS (myocardial infarction) History of leukocytosis 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 ([facility]) Chronic bilateral low back pain without sciatica Diabetic retinopathy of both eyes associated with type 2 diabetes mellitus (HCC) Type 2 diabetes mellitus with foot ulcer (CODE) ([facility]) Low testosterone Bandemia Complicated UTI (urinary tract infection) Supratherapeutic INR Leukocytosis Chronic pain of right knee Current Outpatient Medications Medication Sig Dispense Refill Gabapentin 800 MG Oral Tablet (Neurontin) Take 1 Tablet by mouth in the morning and 1 Tablet at noon and 1 Tablet before bedtime. 90 Tablet 5 polyethylene glycol 3350 (MIRALAX) 255 gram powder DISSOLVE AND DRINK 1 CAPFUL (17GM) IN LIQUID ONCE DAILY. (Patient not taking: Reported on 03/28/2024) 527 g 5 Aspirin 81 MG Tablet Take 1 Tablet by mouth in the morning. Lactobacillus (LACTINEX) chewable tablet Take 1 Tablet by mouth in the morning and 1 Tablet at noonand 1 Tablet before bedtime. nystatin (NYSTOP) 447408 UNIT/GM powder Apply topically to affected area [...] DIRECTED BY COUMADIN CLINIC. 180 Tablet 1 Bisacodyl 5 MG Oral Tablet Delayed Release [...] SPASM(S) 60 Tablet 5 FreeStyle Js 3 Greenwood Device Use as directed. 1 Each 1 FreeStyle Js 3 Sensor Use as directed every 14 days. 6 Each 3 DULoxetine HCl 60 MG Oral Capsule Delayed Release Particles (Cymbalta) Take 1 Capsule by mouth in the morning. 90 Capsule 1 Metoprolol Succinate ER 50 MG Oral [...] mouth in the morning. 30 Tablet 5 Folic Acid 1 MG Oral Tablet Take 1 Tablet by mouth in the morning. 90 Tablet 2 Ferrous Sulfate 325 (65 Fe) MG Oral Tablet (Feosol) Take 1 Tablet by mouth daily with breakfast. 90Tablet 1 Semaglutide(0.25 or 0.5MG/DOS) 2 MG/3ML Solution Pen-injector (Ozempic) Inject 0.25 mg under the skin once a week for 14 days, THEN 0.5 mg once a week. 9.75 mL 0 oxyCODONE HCl 10 MG Oral Tablet (Roxicodone) Take 1 Tablet by mouth 2 times a day as needed for Pain, Moderate or Pain, Severe. 30 Tablet 0 Dextromethorphan-guaiFENesin 10-100 MG/5ML Oral Liquid (Robitussin DM) Take 5 mL by mouth every 6 hours as needed for Cough. 120 mL 5 Incruse Ellipta 62.5 MCG/ACT Inhalation Aerosol Powder Breath Activated (umeclidinium [place]) Inhale 1 Puff by mouth in the morning. 30 Each 11 Azithromycin 250 MG Oral Tablet (Zithromax Z-Hector) Take two tablets by mouth on first day, then 1 tablet daily until gone 6 Tablet 0 Ondansetron HCl 4 MG Oral Tablet (Zofran) TAKE 1 TABLET BY MOUTH EVERY 8 HOURS NEEDED NAUSEA 20 Tablet 1 Potassium Chloride ER 20 MEQ Oral Tablet Extended Release Take 1 Tablet by mouth in the morning. Enoxaparin Sodium 150 MG/ML Injection Solution Prefilled Syringe (Lovenox) Inject 150 mg under the skin in the morning and 150 mg before bedtime. No current facility-administered medications for this visit. Past Medical History: Diagnosis Date Abnormal electrocardiogram Acute pancreatitis adm x 2 d/t depakote reaction Acute ST elevation myocardial infarction (STEMI) of inferior wall ([facility]) 11/18/2019 Anxiety state Calculus of kidney 08/2015 right, [facility] Chest pain Closed fracture of lumbar vertebra ([facility]) COPD (chronic obstructive pulmonary disease) ([facility]) Diabetes mellitus with nephropathy ([facility]) 04/12/2020 Diverticulosis of colon 09/29/05 DM type 2 with diabetic peripheral neuropathy ([facility]) 04/10/2020 Esophageal reflux Gastritis and gastroduodenitis History of subarachnoid hemorrhage 10/04/2020 Hyperglycemia Low testosterone 06/20/2021 Lumbago Major depression, single episode Mixed, or nondependent drug abuse opiates Moderate COPD (chronic obstructive pulmonary disease) ([facility]) 11/2014 Other forms of migraine, without mention of intractable migraine without mention of status migrainosus Other musculoskeletal symptoms referable to limbs(729.89) 11/07/05 Person feigning illness 04/08/06 ER visit [...] performed by Juancarlos Trinidad MD at [place] [facility] [place] OTHER back surgery REPAIR FINGER TENDON, EACH Left 12/07/2014 REPAIR EXTENSOR TENDON FINGER WITHOUT GRAFT performed by Juancarlos Trinidad MD at [facility] [place] REPAIR HAND JOINT Left 12/07/2014 REPAIR COLLATERAL LIGAMENT FINGER performed by Juancarlos Trinidad MD at [facility] [place] RPR SPRF WNDS, 7.6 TO 12.6 CM Left 12/07/2014 SIMPLE REPAIR SCALP NECK ETC 7.6 TO 12.6CM performed by Juancarlos Trinidad MD at [facility] [place] SPIROMETRY B/A BRONCHODILATOR 11/2014 moderate COPD Review [...] Known Problems Brother Heart Disorder Grandmother (Maternal) KS - 80's Heart Disorder Grandfather (Maternal) KS - 50's Lung Disorder Grandfather (Paternal) COPD [...] Stability Do you currently live in a group home or have no steady place to sleep [...] file Review of Systems Constitutional: Positive for activity change and fatigue. Negative for appetite change, chills, diaphoresis, fever and unexpected weight change. HENT: Negative for hearing loss. Respiratory: Positive for shortness of breath (on exertion). Negative for cough, chest tightness and wheezing. Cardiovascular: Negative for chest pain, palpitations and leg swelling. Gastrointestinal: Positive for constipation. Negative for abdominal distention, abdominal pain, blood in stool, nausea and vomiting. Endocrine: Negative. Genitourinary: Positive for difficulty urinating. Negative for dysuria. Musculoskeletal: Positive for arthralgias, back pain, gait problem and joint swelling. Skin: Negative for rash. Neurological: Positive for weakness (legs) and numbness. Negative for dizziness and light-headedness. Psychiatric/Behavioral: Positive for dysphoric mood and sleep disturbance. Negative for agitation and behavioral problems. The patient is nervous/anxious. Objective Wt (!) 380 lb (172.4 kg) | BMI 51.54 kg/m | BSA 2.96 m Physical Exam Constitutional: General: He is not in acute distress. Appearance: Normal appearance. He is obese. He is not ill-appearing, toxic- appearing or diaphoretic. HENT: Head: Normocephalic and atraumatic. Nose: Nose normal. Eyes: Extraocular Movements: Extraocular movements intact. Pulmonary: Effort: Pulmonary effort is normal. No respiratory distress. Musculoskeletal: General: Tenderness present. Neurological: Mental Status: He is alert and oriented to person, place, and time. Psychiatric: Behavior: Behavior normal. ASSESSMENT/PLAN: Hematemesis with nausea (Primary) Gastroesophageal reflux disease without esophagitis Chronic diastolic heart failure (HCC) Type 2 diabetes mellitus with hemoglobin A1c goal of less than 8.0% (HCC) Morbid obesity with BMI of 50.0-59.9, adult (HCC) Opioid dependence, uncomplicated (HCC) Complicated UTI (urinary tract infection) Diabetes mellitus with nephropathy (HCC) Chronic pain syndrome Chronic pain of right knee Chronic bilateral low back pain without sciatica Other orders - Gabapentin 800 MG Oral Tablet (Neurontin); Take 1 Tablet by mouth in the morning and 1 Tablet at noon and 1 Tablet before bedtime. Follow Up: Return in about 1 month (around 10/08/2024) for Video to Clinic. | For: Video to Clinic Cont all meds Ozempic 0.25 mg weekly for at least 2-4 more wks to make sure that it does not cause N/B Constipation med daily F/u INR Diet Gabapentin Kehinde Mc MD documented in this encounter Plan of Treatment Upcoming Encounters Date Type Department Care Team (Late st Contact Info) Description 09/07/2024 6:00 PM EST Anticoagulation Centralized Clinical Pharmacy Services, [address] [place] [address] [place] [address] 09/12/2024 6:00 AM EST Anticoagulation Centralized Clinical Pharmacy Services, [address] [place] [address] [facility], [address] [place] [address] Health Maintenance Due Date Last Done Comments DISCUSS TOBACCO CESSATION (REFER TO SMARTSET #0601) 1970 HIV Screening 1985 Pneumococcal Vaccine: Pediatrics [...] this encounter Medical Devices Implanted Type Area Oxygen Equipment Preparer Device Identifier Shelf Expiration Date Model / Serial / Lot Tube Flex 3.0x2.5 [id number] - [id number] Implanted:Qty: 1 on 12/07/2014 by Juancarlos Trinidad MD at [place] [facility] [place] Left: Finger LANDON : ORTHOPAEDICS 11/18/2015 [id number] / / [id number] documented as of this encounter Visit Diagnoses Diagnosis Hematemesis with nausea- Primary Gastroesophageal reflux disease without esophagitis Esophageal reflux Chronic diastolic heart failure (HCC) Chronic diastolic heart failure Type 2 diabetes mellitus with hemoglobin A1c goal of less than 8.0% (HCC) Morbid obesity with BMI of 50.0-59.9, adult (HCC) Morbid obesity Opioid dependence, uncomplicated (HCC) Complicated UTI (urinary tract infection) Urinary tract infection, site not specified Diabetes mellitus with nephropathy (HCC) Type II or unspecified type diabetes mellitus with renal manifestations, not stated as uncontrolled Chronic pain syndrome Chronic pain of right knee Chronic bilateral low back pain without sciatica documented in this encounter Advance Directives * [...] (no specific identity) Health Care Power of General Studies Program Chair Care Teams Nascar Racer Relationship Specialty Start Date End Date Kehinde Mc MD PCP - General Internal Medicine 03/28/24 documented as of this encounter
--- OUTSIDE RECORDS SUMMARY | 2024-10-12 00:44 | External Medical Summary | Summary of Care ---
Author Name Unknown Organization [facility] Address [address] [place] [address] Phone [phone] Care Team Providers Care Knocker Out Name Role Phone Kehinde Mc MD Primary Care Provider [phone] Reason for Visit * Reason Comments Dosage Adjustment Via Phone (anticoag Cl inic) Encounter Details Date Type Department Care Team ([facility] Contact Info) Description 09/11/2024 6:00 PM EST Anticoagulation Centralized Clinical Pharmacy Services, Ciera Griffin [address] [place] [address] [place] Richardson [address] [place] [address] History of pulmonary embolism* Allergies Active Allergy [...] as of this encounter (statuses as of 09/11/2024) Medications polyethylene glycol 3350 (MIRALAX) 255 gram [...] before bedtime. 04/19/20 22 Active nystatin (NYSTOP) 711717 UNIT/GM powderIndications:C utaneous candidiasis Apply topically to affected area 3 times a day. 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 ([facility]) Place 1 Tab under the tongue [...] :COPD, group C, by GOLD 2017 classification ([facility]),COPD, group D, by GOLD 2017 classification ([facility]) USE 2 PUFFS BY MOUTH EVERY 4 HOURS NEEDED SHORT OF BREATH 6.7 g 5 11/25/19 Active Magnesium Oxide 400 (241.3 Mg) MG Oral TabletIndications:C oronary artery disease involving [place] coronary artery [...] MG Oral TabletIndications:C oronary artery disease involving [place] coronary artery [...] 5 05/30/20 24 Active FreeStyle Js 3 [place] DeviceIndications:T ype 2 diabetes mellitus with hemoglobin A1c goal of less than 8.0% ([facility]) Use as directed. 1 Each 1 [...] Hour (toPROL XL)Indications:Freddie nary artery disease involving [place] coronary artery [...] MCG/ACT Inhalation Aerosol Powder Breath Activated (umeclidinium [place]) Inhale 1 Puff by mouth in the [...] as of this encounter (statuses as of 09/11/2024) Active Problems Problem Noted Date Diagnosed Date [...] as of this encounter (statuses as of 09/11/2024) Resolved Problems Problem Noted Date Diagnosed Date [...] of kidney 08/20/2015 8 Overview (08/21/2015): right, [place] Vitamin D deficiency 01/31/2015 018 Body [...] as of this encounter (statuses as of 09/11/2024) Immunizations Name Administration Dates Next Due COVID-19 mRNA, LNP-s, No Pre serve, 2-Dose Series (Vivocha) 01/02/2021,12/05/2020 DTP Vaccine 07/19/2017,04/03/2014 Hepatitis B, 20+ [...] Progress Notes * Keren Sanchez RPh - 09/11/2024 2:18 PM EST Noted Keren Sanchez Rph, Pharm.D. Clinical Pharmacist [facility] ([facility]) [phone] 09/11/2024,2:18 PM * Gely Brito PHARM Tech - 09/11/2024 2:14 PM EST Contacts Contact Date/Time Type Contact Phone/Fax 09/11/2024 02:05 PM EST Phone (Outgoing) Stanton Milner (Self) [phone] (H) Spoke to Patient Subjective Patient Findings Positives: Change in medications (Patient states he started taking Ozempic on 08/10.) Negatives: Signs/symptoms of bleeding, Change in health, Change in activity, Upcoming invasive procedure, Missed doses, Extra doses, Change in diet/appetite, Bruising Comments: Patient stated he stopped the Lovenox already. Advised patient to contact Anticoagulation Clinic if any unusual bruising or bleeding, recent illness, changes in medication, or questions/concerns. PT/INR results, Coumadin dose instructions, and next PT/INR date communicated as noted by Pharmacist: Yes ARTEM Whelan 09/11/2024, 2:14 PM * Keren Sanchez RPh - 09/11/2024 2:00 PM EST Coumadin Clinic (region specific) Objective Current Warfarin Dose As of 09/11/2024 Warfarin maintenance plan: 2.5 mg (5 mg x 0.5) every Tue, Micki, Sat; 5 mg (5 mg x 1) all other days INR Result As of 09/11/2024 INR goal: 2.0-3.0 INR used for dosin.0 (09/11/2024) Assessment & Plan Warfarin Plan As of 09/11/2024 Full warfarin instructions: 09/11: 7.5 mg; Otherwise 2.5 mg every Tue, Micki, Sat; 5 mg all other days Next INR check: 09/18/2024 STOP Lovenox if not already complete Repeat PT/INR in 1 week(s) Weekly dose: not changed Additional Dosing Information: Description 09/05- Lovenox bridge at [facility] D/C GML([facility]) - pt prefers [facility] at this time Tech to contact patient with dose instructions as noted. Keren Sanchez RPh 09/11/2024, 2:01 PM documented in this encounter Plan of Treatment Upcoming Encounters Date Type Department Care Team (Late st Contact Info) Description 09/19/2024 6:00 AM EST Anticoagulation Centralized Clinical Pharmacy Services, Ciera Griffin [address] [place] [address] [place] [address] [place] [address] Health Maintenance Due Date Last Done Comments DISCUSS TOBACCO CESSATION (REFER TO SMARTSET #[id number]) 1970 HIV Screening 1985 Pneumococcal Vaccine: Pediatrics [...] this encounter Medical Devices Implanted Type Area Night Manager Device Identifier Shelf Expiration Date Model / Serial / Lot Tube Flex 3.0x2.5 [id number] - [id number] Implanted:Qty: 1 on 12/07/2014 by Juancarlos Trinidad MD at [facility] Left: Finger [employer]ANDON : ORTHOPAEDICS 11/18/2015 [id number] / / [id number] documented as of this encounter Visit Diagnoses [...] (no specific identity) Health Care Power of Continuous Miner Operator Care Teams Knocker Out Relationship Specialty Start Date End Date Kehinde Mc MD PCP - General Internal Medicine 03/28/24 documented as of this encounter
--- OUTSIDE RECORDS SUMMARY | 2024-10-12 00:45 | External Medical Summary | Summary of Care ---
Author Name Unknown Organization [facility] Address [address] [place] [address] Phone [phone] Care Team Providers Care Naval [employer]cre[employer] Name Role Phone Kehinde Mc MD Primary Care Provider Reason for Visit * Reason Comments Dosage Adjustment Via Phone (anticoag Cl inic) Encounter Details Date Type Department Care Team ([facility] Contact Info) Description 09/04/2024 6:45 AM EST Anticoagulation Centralized Clinical Pharmacy Services, Ciera Griffin [address] [place] [address] [place] [address] [place] [address] History of pulmonary embolism* Allergies Active Allergy [...] as of this encounter (statuses as of 09/04/2024) Medications polyethylene glycol 3350 (MIRALAX) 255 gram [...] before bedtime. 04/19/20 22 Active nystatin (NYSTOP) 440120 UNIT/GM powderIndications:C utaneous candidiasis Apply topically to [...] MG Oral TabletIndications:C oronary artery disease involving [place] coronary artery of [...] MG Oral TabletIndications:C oronary artery disease involving [place] coronary artery of [...] 5 05/30/20 24 Active FreeStyle Js 3 [place] DeviceIndications:T ype 2 diabetes mellitus with hemoglobin [...] Hour (toPROL XL)Indications:Freddie nary artery disease involving [place] coronary artery of [...] MCG/ACT Inhalation Aerosol Powder Breath Activated (umeclidinium [place]) Inhale 1 Puff by mouth in the [...] NAUSEA 20 Tablet 1 08/28/20 24 Active documented as of this encounter (statuses as of 09/04/2024) Active Problems Problem Noted Date Diagnosed Date [...] as of this encounter (statuses as of 09/04/2024) Resolved Problems Problem Noted Date Diagnosed Date [...] of kidney 08/20/2015 8 Overview (08/21/2015): right, [place] CT Vitamin D deficiency 01/31/2015 018 Body [...] as of this encounter (statuses as of 09/04/2024) Immunizations Name Administration Dates Next Due COVID-19 [...] Progress Notes * Keren Sanchez RPh - 09/04/2024 4:21 PM EST Pt remains admitted to [facility] at this time. [facility] will follow up at discharge. Keren Sanchez Rph, Pharm.D. Clinical Pharmacist [facility] ([facility]) [phone] 09/04/2024,4:22 PM documented in this encounter Plan of Treatment Upcoming Encounters Date Type Department Care Team (Late st Contact Info) Description 09/05/2024 6:45 AM EST Anticoagulation Centralized Clinical Pharmacy Services, Ciera Griffin [address] [place] [address] [place] [address] [facility], [address] [place] [address] 09/07/2024 11:20 AM EST Office Visit [facility] [place] [address] [place] [phone] Kehinde Mc MD [address] [place] [address] 09/11/2024 7:00 AM EST Laboratory Lab Mobile Phlebotomy [facility] [address] [facility] [place] [address] [facility], Gml Mobile Home Draw [address] [place] [address] 09/12/2024 6:00 AM EST Anticoagulation Centralized Clinical Pharmacy Services, Ciera Griffin [address] [place] [address] [place] [address] [place] [address] Health Maintenance Due Date Last Done Comments DISCUSS TOBACCO CESSATION (REFER TO SMARTSET #7672) 1970 HIV Screening 1985 Pneumococcal Vaccine: Pediatrics [...] this encounter Medical Devices Implanted Type Area Hop Sorter Device Identifier Shelf Expiration Date Model / Serial / Lot Tube Flex 3.0x2.5 [id number] - [id number] Implanted:Qty: 1 on 12/07/2014 by Juancarlos Trinidad MD at [facility] Left: Finger [employer] : ORTHOPAEDICS 11/18/2015 [id number] / / [id number] documented as of this encounter Visit Diagnoses [...] specific identity) Health Care Power of Environmental Compliance Officer Care Teams [employer] Relationship Specialty Start Date End Date Kehinde Mc MD [address] [place] [address] PCP - General Internal Medicine 03/28/24 documented as of this encounter
--- OUTSIDE RECORDS SUMMARY | 2024-10-12 00:45 | External Medical Summary | Summary of Care ---
Author Name Unknown Organization [facility] Address [address] [place] [address] Phone [phone] Care Team Providers Care Railroad Firer Name Role Phone Kehinde Mc MD Primary Care Provider [phone] Reason for Visit * Reason Onset Date Comments Hospital Follow-Up 09/06/2024 [facility] ([facility]) Encounter Details Date Type Department Care Team (Late st Contact Info) Description 09/06/2024 Telephone [facility] [address] [place] [address] Shahida Rizo RN Hospital Follow-Up ([facility] ([facility])) Allergies Active Allergy Reactions Criticality Noted Date [...] as of this encounter (statuses as of 09/06/2024) Medications polyethylene glycol 3350 (MIRALAX) 255 gram [...] Tablet before bedtime. 04/19/20 Active nystatin (NYSTOP) 132158 UNIT/GM powderIndications:C utaneous candidiasis Apply topically to affected area 3 times a day. 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 ([facility]) Place 1 Tab under the tongue [...] MG Oral TabletIndications:C oronary artery disease involving [place] coronary artery of [place] heart without angina pectoris Take by [...] than 8.0% ([facility]) Use 3 times daily as directed [...] than 8.0% ([facility]) Use 3 times daily as directed [...] MG Oral TabletIndications:C oronary artery disease involving [place] coronary artery of [place] heart without angina pectoris TAKE 1 [...] 5 05/30/20 24 Active FreeStyle Js 3 [place] DeviceIndications:T ype 2 diabetes mellitus with hemoglobin A1c goal of less than 8.0% ([facility]) Use as directed. 1 Each 1 [...] Hour (toPROL XL)Indications:Freddie nary artery disease involving [place] coronary artery of [place] heart without angina pectoris TAKE 1 [...] MCG/ACT Inhalation Aerosol Powder Breath Activated (umeclidinium [place]) Inhale 1 Puff by mouth in the [...] Sodium 150 MG/ML Injection Solution Prefilled Syringe (LovenoMarro.ws) Inject 150 mg under the skin in the morning and 150 mg before bedtime. 09/05/20 24 Active Omeprazole 20 MG Oral Capsule Delayed Release (PriLOSEC) TAKE ONE CAPSULE BY MOUTH 1 HOUR BEFORE THE 1ST MEAL OF THE DAY 30 Capsule 5 07/25/20 24 024 Discontin ued(Disch arged) Potassium Chloride Terra ER 20 MEQ Oral Tablet Extended ReleaseIndications: Hypokalemia Take 1 Tablet by mouth in the morning and 1 Tablet at noon and 1 Tablet before bedtime. TAKE ONE TABLET EVERY MORNING AND AT BEDTIME. 270 Tablet 3 08/14/20 24 024 Discontin ued(Disch arged) documented as of this encounter (statuses as of 09/06/2024) Active Problems Problem Noted Date Diagnosed Date [...] hemorrhage 10/04/2020 Coronary artery disease invo lving [place] heart without angina pectoris 10/04/2020 COPD, [...] as of this encounter (statuses as of 09/06/2024) Resolved Problems Problem Noted Date Diagnosed Date [...] of kidney 08/20/2015 8 Overview (08/21/2015): right, [place] CT Vitamin D deficiency 01/31/2015 018 Body [...] situational 06/06/2014 01/30/2015 Syncope and collapse 12/20/2012 01/15/2 018 Prolonged QT interval 12/20/20122017 Obesity, morbid (more than 1 00 lbs over ideal weight or BMI > 40) 12/17/2009 10/04/2017 Overview (12/09/2015): Per Obesity Taxonomy ICD-10 update of inactive term Person feigning illness 04/08/2006 120 11/2011 Overview (05/31/2009): ER visit Person feigning [...] as of this encounter (statuses as of 09/06/2024) Immunizations Name Administration Dates Next Due COVID-19 mRNA, LNP-s, No Pre serve, 2-Dose Series (PPTV) 01/02/2021,12/05/2020 DTP Vaccine 07/19/2017,04/03/2014 Hepatitis B, 20+ [...] Entry Date Author No 03/28/2024 9:07 PM Jaince Henry RN documented in this encounter Miscellaneous Notes * Telephone Encounter - Shahida Rizo RN - 09/06/2024 1:55 PM EST Transitions of Care Note Reason for Referral:Recent Admission Phone visit for follow up: FARIDA Admitted to: [facility], Date: 08/29/2024 Discharged to: Home with Home Services, Date: 09/05/2024 Diagnosis driving hospitalization: Hematemesis, Recurrent UTIs Source/Contact: Patient SUBJECTIVE Consent: Verbal consent for review of hospital discharge: Yes REVIEW OF SYSTEMS Patient/Other Reports: Current patient/caregiver problems or concerns: No concerns at this time CV: Denies problems Pulmonary: Denies problems Chills/Sweats/Fever:Denies chills/sweats Denies fever Appetite:Denies problems such as nausea, vomiting, burning, decreased appetite Current diet: Carb consistent Bowel: denies problems date of last BM: today Bladder: denies problems and ostomy/indwelling catheter: Chronic Lloyd catheter Wound (If applicable): N/A Pain:Denies Sleep:Denies problems FUNCTIONAL STATUS: ADL'S: Needs Assistance With:Bathing, Dressing, and Toileting IADL'S: Needs Assistance With:Grocery Shopping, Cooking food, Routine Housework, and Taking medications Cognitive and Mental Health: denies problems, alert and oriented x 3, and able to communicate, understand instructions, process information. MEDICATION RECONCILIATION Medications: Discussed new and discontinued medications, patient and unable to go over complete med list, declined at this time New medications: Lovenox, Pantoprazole BID, Potassium 40meq AM, 20meq PM Discontinued medications: Omeprazole, Pantoprazole QD, Potassium 20meq BID ASSESSMENT Medication Risk Assessment: No risks identified going to pharmacy today to get new scripts, did not have Lovenox yet since discharge Discussed with MTM/Coag pharmacist in clinic, to have INR checked as scheduled tomorrow Did patient fail outpatient treatment? No Discharge instructions available for review? Yes PLAN Symptom Monitoring Interventions:Member/caregiver education - signs and symptoms to contact PrimaryCare (DO NOT DELETE-Three vaz symptoms patient is to report to PCP) 1. Chest Pain/SOB 2. Fever/chills 3. Any worsening symptoms Electric Drill OperatorNurse Informaticist of Care interventions/Action Plan: 5 - 7 day follow-up with PCP in place - Date: PCP appointment in AM, 09/07/2024. Patient requestingVideo visit Educated on role of FARIDA completed with patient/caregiver. Educated patient/caregiver on patient right to have input on FARIDA plan of care. Verification of Home Health/DME if indicated: YES [facility] scheduled to come 09/08/2024. Patient uses cane, Home O2 4L/NC at HS Identified Care Gaps: Yes Care Gaps closed this call: Appointment made or confirmed and Transition of Care follow-up communication Re-evaluation of Plan of Care and progress towards goals achievement: Patient education this visit: Verbal, Confirmed PCP appointment, changed to video, addressed reasons to call sooner as above Plan to instructed to call Primary Care Provider with change in symptoms or as needed before next follow-up, discharge needs met, verbalizes understanding and agrees with plan. Shahida Rizo, RN documented in this encounter Plan of Treatment Upcoming Encounters Date Type Department Care Team (Late st Contact Info) Description 09/07/2024 7:10 AM EST Laboratory Lab Mobile Phlebotomy [facility] [address] [place] [address] Mvmg, Gml Mobile Home Draw [address] [place] [address] 09/07/2024 11:20 AM EST Telemedicine [facility] [address] [facility] [phone] Kehinde Mc MD [address] [facility] [phone] 09/07/2024 6:00 PM EST Anticoagulation Central[facility] Clinical Pharmacy Services, [address] [place] [address] [place] [address] 09/12/2024 6:00 AM EST Anticoagulation Centralized Clinical Pharmacy Services, Ciera Griffin [address] [place] [address] [place] [address] [place] [address] Health Maintenance Due Date Last Done Comments [...] this encounter Medical Devices Implanted Type Area Warehouse Technician Device Identifier Shelf Expiration Date Model / Serial / Lot Tube Flex 3.0x2.5 [id number] - [id number] Implanted:Qty: 1 on 12/07/2014 by Juancarlos Trinidad MD at [facility] Left: Finger LANDON : ORTHOPAEDICS 11/18/2015 [id number] / / [id number] documented as of this encounter Advance Directives [...] (no specific identity) Health Care Power of Compliance Administrator Care Teams Railroad Firer Relationship Specialty Start Date End Date Kehinde Mc MD PCP - General Internal Medicine 03/28/24 documented as of this encounter
--- OUTSIDE RECORDS SUMMARY | 2024-10-12 00:45 | External Medical Summary | Summary of Care ---
Author Name Unknown Organization [facility] Address [address] [place] [address] Phone [phone] Care Team Providers Care Piece Dyeing Machine Tender Name Role Phone Kehinde Mc MD Primary Care Provider [phone] Reason for Visit * Reason Comments Dosage Adjustment Via Phone (anticoag Cl inic) Encounter Details Date Type Department Care Team ([facility] Contact Info) Description 09/05/2024 6:45 AM EST Anticoagulation Centralized Clinical Pharmacy Services, Ciera Griffin [address] [place] [address] [place] Richardson [address] [place] [address] History of pulmonary embolism* Allergies Active Allergy [...] as of this encounter (statuses as of 09/05/2024) Medications polyethylene glycol 3350 (MIRALAX) 255 gram [...] before bedtime. 04/19/20 22 Active nystatin (NYSTOP) 975260 UNIT/GM powderIndications:C utaneous candidiasis Apply topically to [...] MG Oral TabletIndications:C oronary artery disease involving [place] coronary artery of [place] heart without angina pectoris Take by mouth [...] MG Oral TabletIndications:C oronary artery disease involving [place] coronary artery of [place] heart without angina pectoris TAKE 1 TABLET [...] 5 05/30/20 24 Active FreeStyle Js 3 [place] DeviceIndications:T ype 2 diabetes mellitus with hemoglobin [...] Hour (toPROL XL)Indications:Freddie nary artery disease involving [place] coronary artery of [place] heart without angina pectoris TAKE 1 & [...] MCG/ACT Inhalation Aerosol Powder Breath Activated (umeclidinium [place]) Inhale 1 Puff by mouth in the [...] as of this encounter (statuses as of 09/05/2024) Active Problems Problem Noted Date Diagnosed Date [...] hemorrhage 10/04/2020 Coronary artery disease invo lving [place] heart without angina pectoris 10/04/2020 COPD, group [...] as of this encounter (statuses as of 09/05/2024) Resolved Problems Problem Noted Date Diagnosed Date [...] of kidney 08/20/2015 8 Overview (08/21/2015): right, [place] CT Vitamin D deficiency 01/31/2015 018 Body [...] as of this encounter (statuses as of 09/05/2024) Immunizations Name Administration Dates Next Due COVID-19 [...] this encounter Progress Notes * Keren Sanchez, [facility] - 09/05/2024 2:56 PM EST Medication Therapy Disease Management - Anticoagulation Patient: Stantonnat Milner | : 1970 Subjective Contacts Contact Date/Time Type Contact Phone/Fax 09/05/2024 03:24 PM EST Phone (Outgoing) Stanton Milner (Self) [phone] (H) Left Message Patient-Reported Symptoms: Patient Findings Positives: Hospital admission Comments: Pt was discharged from [facility] to home. Pt was admitted for coffee ground emesis. Pertinent medications changes given Vit K during admission, INR and Hgb in range. Discharge on Lovenox bridge,150mg every 12 hours started 09/04. INR at discharge was 1.2 (09/05/24). Pt was provided the following directions at discharge: extra dose of Warfarin 2.5mg given on 09/03 Objective Current Warfarin Dose As of 09/05/2024 Warfarin maintenance plan: 2.5 mg (5 mg x 0.5) every Tue, Micki, Sat; 5 mg (5 mg x 1) all other days INR Result As of 09/05/2024 INR goal: 2.0-3.0 INR used for dosing: No new INR was available at the time of this encounter. Assessment & Plan Warfarin Plan As of 09/05/2024 Full warfarin instructions: 09/05: 5 mg; Otherwise 2.5 mg every Tue, Micki, Sat; 5 mg all other days Next INR check: 09/07/2024 Repeat PT/INR in 2 day(s)ON Lovenox bridge until INR in range Weekly dose: not changed Additional Dosing Information: Description 09/05- Lovenox bridge at [facility] D/C GML([facility]) - pt prefers Tues GML at this time Keren Sanchez RP Clinical Pharmacist 09/05/2024, 3:22 PM documented in this encounter Plan of Treatment Upcoming Encounters Date Type Department Care Team (Late st Contact Info) Description 09/07/2024 11:20 AM EST [facility] [address] [place] [id number] Kehinde Mc MD [address] [place] [address] 09/07/2024 6:00 PM EST Anticoagulation Centralized Clinical Pharmacy Services, Ciera Griffin [address] [place] [address] [place] Richardson [address] [place] [address] 09/11/2024 7:00 AM EST Laboratory Lab Mobile Phlebotomy [facility] [place] [address] Mvmg, Gml Mobile Home Draw [address] [place] [address] 09/12/2024 6:00 AM EST Anticoagulation Centralized Clinical Pharmacy Services, Ciera Griffin [address] [place] [address] [place] Richardson [address] [facility] [address] [place] [address] Health Maintenance Due Date Last Done Comments DISCUSS TOBACCO CESSATION (REFER TO SMARTSET #9153) 1970 HIV Screening 1985 Pneumococcal Vaccine: Pediatrics [...] this encounter Medical Devices Implanted Type Area Digital Field Service Technician Device Identifier Shelf Expiration Date Model / Serial / Lot Tube Flex 3.0x2.5 [id number] - [id number] Implanted:Qty: 1 on 12/07/2014 by Juancarlos Trinidad MD at [facility] Left: Finger LANDON : ORTHOPAEDICS 11/18/2015 [id number] / / [id number] documented as of this encounter Visit Diagnoses [...] (no specific identity) Health Care Power of Borough Coordinator Care Teams Piece Dyeing Machine Tender Relationship Specialty Start Date End Date Kehinde Mc MD [address] [place] [address] PCP - General Internal Medicine 03/28/24 documented as of this encounter
--- OUTSIDE RECORDS SUMMARY | 2024-10-12 00:45 | External Medical Summary ---
Author Name Unknown Address Unknown Organization K0G[facility] [address] [place] [id number] Laboratory Report Ordering Provider Test Date Status TULIO TRONCOSO 09/07/2024 08:23:00 Final Standing order for pt/inr. < br/>Please draw pt/inr every 1 to 4 weeks as requested
Results to [facility]

Warfarin Therapy
INR: 2.0-3.0 conventional anticoagulation
INR: 2.5-3.5 high intensity anticoagulation Observation Date Value Abnormality Reference (Units ) Status PT 09/07/2024 08:23:00 17.1 Above high normal 11 .6-15.2 (seconds) Final INR 09/07/2024 08:23:00 1.4 Above high normal 0. 8-1.2 Final Performing Location [facility] [address] [place] [address]
--- OUTSIDE RECORDS SUMMARY | 2024-10-12 00:45 | External Medical Summary | Summary of Care ---
Author Name Unknown Organization [facility] Address [address] [place] [address] Phone [phone] Care Team Providers Care Director Non Profit Name Role Phone Kehinde Mc MD Primary Care Provider [phone] Reason for Visit * Reason Onset Date Comments Fax 09/05/2024 [facility] Encounter Details Date Type Department Care Team ([facility] st Contact Info) Description 09/05/2024 Telephone [facility] [address] [facility] [place] [address] Kehinde Mc MD [address] [place], [place] [phone] Fax ([facility]) Allergies Active Allergy [...] before bedtime. 04/19/20 22 Active nystatin (NYSTOP) 884085 UNIT/GM powderIndications:C utaneous candidiasis Apply topically to [...] [place]),COPD, group D, by GOLD 2017 classification (HCC) USE 2 PUFFS BY MOUTH EVERY 4 HOURS NEEDED SHORT OF BREATH 6.7 g 5 11/25/19 22 Active Magnesium Oxide 400 (241.3 Mg) MG Oral TabletIndications:C oronary artery disease involving [place] coronary artery of [place] heart without angina pectoris Take by mouth [...] MG Oral TabletIndications:C oronary artery disease involving [place] coronary artery of [place] heart without angina pectoris TAKE 1 TABLET [...] 5 05/30/20 24 Active FreeStyle Js 3 [place] DeviceIndications:T ype 2 diabetes mellitus with hemoglobin [...] Hour (toPROL XL)Indications:Freddie nary artery disease involving [place] coronary artery of [place] heart without angina pectoris TAKE 1 & [...] MCG/ACT Inhalation Aerosol Powder Breath Activated (umeclidinium [place]) Inhale 1 Puff by mouth in the [...] hemorrhage 10/04/2020 Coronary artery disease invo lving [place] heart without angina pectoris 10/04/2020 COPD, group [...] of kidney 08/20/2015 8 Overview (08/21/2015): right, [place] CT Vitamin D deficiency 01/31/2015 018 Body [...] mRNA, LNP-s, No Pre serve, 2-Dose Series ([employer] Security) 01/02/2021,12/05/2020 DTP Vaccine 07/19/2017,04/03/2014 Hepatitis B, 20+ [...] of Assessment Author No 03/28/2024 9:07 PM EDJanice Buckley RN * Are you blind or do [...] Telephone Encounter - Gina Clifford LPN - 09/05/2024 12:35 PM EST Received Fax for BFPROVIDERS: Dr. Kehinde Mc ORDER received from [facility] and FAXED documented in this encounter Plan of Treatment Upcoming Encounters Date Type Department Care Team (Late st Contact Info) Description 09/07/2024 11:20 AM EST [facility] [address] [place] [phone] Kehinde Mc MD [address] [place] [address] 09/11/2024 7:00 AM EST Laboratory Lab Mobile Phlebotomy [place] [id number] [place] [address] Mvmg, Gml Mobile Home Draw [address] [place] [address] [address] 09/12/2024 6:00 AM EST Anticoagulation Centralized Clinical Pharmacy Services, Ciera Griffin [address] [place] [address] [place] Richardson [address] [facility], [address] [place] [address] Health Maintenance Due Date Last Done Comments DISCUSS TOBACCO CESSATION (REFER TO SMARTSET #4080) 1970 HIV Screening 1985 Pneumococcal Vaccine: Pediatrics [...] shot) (#1) 2024 08/26/2013 HbA1c 02/11/2025 08/14/2024, 0802/2024, 03/27/2024, Additional history exists Diabetic Foot Exam [...] encounter Medical Devices Implanted Type Area Architectural Design Lecturer Device Identifier Shelf Expiration Date Model / Serial / Lot Tube Flex 3.0x2.5 [id number] - [id number] Implanted:Qty: 1 on 12/07/2014 by Juancarlos Trinidad MD at [facility] Left: Finger [employer]ON : ORTHOPAEDICS 11/18/2015 [id number] / / [id number] documented as of this encounter Advance Directives [...] specific identity) Health Care Power of Project Accountant Care Teams Director Non Profit Relationship Specialty Start Date End Date Kehinde Mc MD [address] [place] [address] PCP - General Internal Medicine 03/28/24 documented as of this encounter
--- OUTSIDE RECORDS SUMMARY | 2024-10-12 00:46 | External Medical Summary | Summary of Care ---
Author Name Unknown Organization [facility] Address [address] [place] [address] Phone [phone] Care Team Providers Care Cytology Supervisor Name Role Phone Kehinde Mc MD Primary Care Provider [phone] Reason for Visit * Reason Comments Dosage Adjustment Via Phone (anticoag Cl inic) Encounter Details Date Type Department Care Team ([facility] Contact Info) Description 08/29/2024 6:00 AM EST Anticoagulation Centralized Clinical Pharmacy Services, Ciera Griffin [address] [place] [address] [place] [address] [place] [address] History of pulmonary embolism* Allergies Active Allergy [...] as of this encounter (statuses as of 08/29/2024) Medications polyethylene glycol 3350 (MIRALAX) 255 gram [...] before bedtime. 04/19/20 22 Active nystatin (NYSTOP) 613641 UNIT/GM powderIndications:C utaneous candidiasis Apply topically to affected area 3 times a day. 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) Place 1 Tab under the tongue every [...] :COPD, group C, by GOLD 2017 classification ([facility]),COPD, group D, by GOLD 2017 classification ([facility]) USE 2 PUFFS BY MOUTH EVERY 4 HOURS NEEDED SHORT OF BREATH 6.7 g 5 11/25/19 Active Magnesium Oxide 400 (241.3 Mg) MG Oral TabletIndications:C oronary artery disease involving [place] coronary artery of [place] heart without angina pectoris Take by mouth [...] MG Oral TabletIndications:C oronary artery disease involving [place] coronary artery of [place] heart without angina pectoris TAKE 1 TABLET [...] 5 05/30/20 24 Active FreeStyle Js 3 [place] DeviceIndications:T ype 2 diabetes mellitus with hemoglobin A1c goal of less than 8.0% ([facility]) Use as directed. 1 Each 1 05/30/20 [...] Hour (toPROL XL)Indications:Freddie nary artery disease involving [place] coronary artery of [place] heart without angina pectoris TAKE 1 & [...] MCG/ACT Inhalation Aerosol Powder Breath Activated (umeclidinium [place]) Inhale 1 Puff by mouth in the [...] as of this encounter (statuses as of 08/29/2024) Active Problems Problem Noted Date Diagnosed Date [...] hemorrhage 10/04/2020 Coronary artery disease invo lving [place] heart without angina pectoris 10/04/2020 COPD, group [...] as of this encounter (statuses as of 08/29/2024) Resolved Problems Problem Noted Date Diagnosed Date [...] of kidney 08/20/2015 8 Overview (08/21/2015): right, [place] CT Vitamin D deficiency 01/31/2015 018 Body [...] as of this encounter (statuses as of 08/29/2024) Immunizations Name Administration Dates Next Due COVID-19 [...] documented in this encounter Progress Notes * Waleska Shipley CPhT - 08/29/2024 8:55 AM EST Contacts Contact Date/Time Type Contact Phone/Fax 08/29/2024 08:54 AM EST Phone (Outgoing) Stanton Milner (Self) [phone] (H) Left Message Subjective Advised patient to contact Anticoagulation Clinic if any unusual bruising or bleeding, recent illness, changes in medication, or questions/concerns. PT/INR results, Coumadin dose instructions, and next PT/INR date communicated as noted by Pharmacist: Yes WALESKA SHIPLEY CPhT 08/29/2024, 8:55 AM * Keren Sanchez [facility] - 08/29/2024 8:44 AM EST Coumadin Clinic (region specific) Objective Current Warfarin Dose As of 08/29/2024 Warfarin maintenance plan: 2.5 mg (5 mg x 0.5) every Tue, Micki, Sat; 5 mg (5 mg x 1) all other days INR Result As of 08/29/2024 INR goal: 2.0-3.0 INR used for dosin.0 (08/28/2024) Assessment & Plan Warfarin Plan As of 08/29/2024 Full warfarin instructions: 2.5 mg every Tue, Micki, Sat; 5 mg all other days No change documented: Keren Sanchez RPh Next INR check: 09/11/2024 Repeat PT/INR in 2 week(s) Weekly dose: not changed Additional Dosing Information: Description GML([facility]) - pt prefers Tues GML at this time Tech to contact patient with dose instructions as noted. Keren Sanchez RPh 08/29/2024, 8:44 AM documented in this encounter Plan of Treatment Health Maintenance Due Date Last Done Comments DISCUSS TOBACCO CESSATION (REFER TO SMARTSET #1600) 1970 HIV Screening 1985 Pneumococcal Vaccine: Pediatrics [...] encounter Medical Devices Implanted Type Area Rn Clinical Device Identifier Shelf Expiration Date Model / Serial / Lot Tube Flex 3.0x2.5 [id number] - [id number] Implanted:Qty: 1 on 12/07/2014 by Juancarlos Trinidad MD at [facility] Left: Finger LANDON : ORTHOPAEDICS 11/18/2015 [id number] / / [id number] documented as of this encounter Visit Diagnoses [...] (no specific identity) Health Care Power of Chart Reader Care Teams Cytology Supervisor Relationship Specialty Start Date End Date Kehinde Mc MD [address] [place] [facility] [place] [address] PCP - General Internal Medicine 03/28/24 documented as of this encounter
--- OUTSIDE RECORDS SUMMARY | 2024-10-12 00:46 | External Medical Summary | Summary of Care ---
Author Name Unknown Organization [facility] Address [address] [place] [address] Phone [phone] Care Team Providers Care Avid Editor Name Role Phone Kehinde Mc MD Primary Care Provider [phone] Reason for Visit * Reason Onset Date Comments Advice 08/15/2024 Encounter Details Date Type Department Care Team (Late st Contact Info) Description 08/15/2024 Telephone [facility] [address] [facility] [place] [address] Kehinde Mc MD [address] [place] [address] Advice Allergies Active Allergy Reactions [...] before bedtime. 04/19/20 22 Active nystatin (NYSTOP) 905966 UNIT/GM powderIndications:C utaneous candidiasis Apply topically to affected area 3 times a day. 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 ([facility]) Place 1 Tab under the tongue [...] :COPD, group C, by GOLD 2017 classification ([facility]),COPD, group D, by GOLD 2017 classification ([facility]) USE 2 PUFFS BY MOUTH EVERY 4 HOURS NEEDED SHORT OF BREATH 6.7 g 5 11/25/19 Active Magnesium Oxide 400 (241.3 Mg) MG Oral TabletIndications:C oronary artery disease involving [place] coronary artery of [place] heart without angina pectoris Take by mouth [...] MG Oral TabletIndications:C oronary artery disease involving [place] coronary artery of [place] heart without angina pectoris TAKE 1 TABLET [...] 5 05/30/20 24 Active FreeStyle Js 3 [place] DeviceIndications:T ype 2 diabetes mellitus with hemoglobin [...] Hour (toPROL XL)Indications:Freddie nary artery disease involving [place] coronary artery of [place] heart without angina pectoris TAKE 1 & [...] MCG/ACT Inhalation Aerosol Powder Breath Activated (umeclidinium [place]) Inhale 1 Puff by mouth in the [...] hemorrhage 10/04/2020 Coronary artery disease invo lving [place] heart without angina pectoris 10/04/2020 COPD, group [...] of kidney 08/20/2015 8 Overview (08/21/2015): right, [place] CT Vitamin D deficiency 01/31/2015 018 Body [...] 03/28/2024 9:07 PM EMYT Janice Tanner RN * Do you have [...] Assessment Author Yes 03/28/2024 9:07 PM Janice Hnery RN documented as of this encounter Mental Status * Because of a physical, mental, or emotional condition, do you have serious difficulty concentrating, remembering, or making decisions? (5 years old or older) Answer Entry Date Author No 03/28/2024 9:07 PM Janice Henry RN documented in this encounter Miscellaneous Notes * Telephone Encounter - Christina Godinez LPN - 08/28/2024 2:18 PM EST Patient aware and verbalized understanding. Believes that he is going to end up going to the ER. Is vomiting. FYI. * Telephone Encounter - Gina Clifford LPN - 08/28/2024 12:44 PM EST Attempted to call patient, there was no answer, left voicemail. When patient returns call, ok for DARIA to relay message, please refer to below documentation. If needed, can transfer to dedicated nurse line. * Addendum Note - Kehinde Mc MD [...] EST HH Concerns Tracey RN, Calling from: [facility] Report/Concerns of: URI wheezing Symptoms: see narrative Vitals: T98.6 P87 RR18 BP 125/78 SP O2 94% RA Lung sounds wheezing Narrative: pt was prescribed z-hector last week for URI. His sx continue, he still has has wheezing. He is using his neb tx and inhalers. Tracey inquiring if additional meds should be prescribed? Call back Stanton with any advice or orders at [phone] * Telephone Encounter - Coco Escoto OSA - 08/15/2024 3:10 PM EST Reason for patient's call: Tracey bay RN from [facility] home care Caller was transferred to Zohreh at the nurse line. documented in this encounter Plan of Treatment Upcoming Encounters Date Type Department Care Team (Late st Contact Info) Description 08/29/2024 6:00 AM EST Anticoagulation [facility] Clinical Pharmacy Services, Ciera Griffin [address] [place] [address] [place] [address] [place] [address] Health Maintenance Due Date Last Done Comments DISCUSS TOBACCO CESSATION (REFER TO SMARTSET #0027) 1970 HIV Screening 1985 Pneumococcal Vaccine: Pediatrics [...] this encounter Medical Devices Implanted Type Area Pleat Taper Device Identifier Shelf Expiration Date Model / Serial / Lot Tube Flex 3.0x2.5 [id number] - [id number] Implanted:Qty: 1 on 12/07/2014 by Juancarlos Trinidad MD at [facility] Left: Finger LANDON : ORTHOPAEDICS 11/18/2015 [id number] / / [id number] documented as of this encounter Visit Diagnoses [...] (no specific identity) Health Care Power of Customer Support Analyst Care Teams Avid Editor Relationship Specialty Start Date End Date Kehinde Mc MD [address] [place] [address] [address] PCP - General Internal Medicine 03/28/24 documented as of this encounter
--- OUTSIDE RECORDS SUMMARY | 2024-10-12 00:46 | External Medical Summary | Summary of Care ---
Author Name Unknown Organization [facility] Address [address] [place] [address] Phone [phone] Care Team Providers Care Sales Promotion Officer Name Role Phone Kehinde Mc MD Primary Care Provider Reason for Visit * Reason Onset Date Comments Hospital Follow-Up 09/04/2024 Encounter Details Date Type Department Care Team ([facility] Contact Info) Description 09/04/[address] [facility] Medicine [address], [place] [id number] Kehinde Mc MD [address] [place] [address] Hospital Follow-Up Allergies Active Allergy Reactions Criticality [...] before bedtime. 04/19/20 22 Active nystatin (NYSTOP) 308157 UNIT/GM powderIndications:C utaneous candidiasis Apply topically to affected area 3 times a day. 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 1 [...] MCG/ACT Inhalation Aerosol Powder Breath Activated (umeclidinium [place]) Inhale 1 Puff by mouth in the [...] Excessive caffeine intake 09/02/2015 Calculus of kidney 08/20/2015201 8 Overview (08/21/2015): right, [place] CT Vitamin D deficiency 01/31/2015 018 Body [...] Yes 03/28/2024 9:07 PM EDJanice Buckley RN documented as of this encounter Mental Status * Because of a physical, mental, or emotional condition, do you have serious difficulty concentrating, remembering, or making decisions? (5 years old or older) Answer Entry Date Author No 03/28/2024 9:07 PM Janice Henry RN documented in this encounter Miscellaneous Notes * Telephone Encounter - Janice Bernal LPN - 09/04/2024 2:52 PM EST Stanton Milner discharged to home from [facility]. Dr. Victor, hospitalist at [facility] is recommending a follow up with the coumadin [facility] clinic as soon as possible. Please reach out to the patient to schedule. Thank you! documented in this encounter Plan of Treatment Upcoming Encounters Date Type Department Care Team (Late st Contact Info) Description 09/07/2024 11:20 AM EST Office Visit [facility] [address] [phone] Kehinde Mc MD [address] [address] 09/11/2024 7:00 AM EST Laboratory Lab Mobile Phlebotomy [facility] [address] [place] [address] [facility] Home Draw [address] [place] [address] 09/12/2024 6:00 AM EST Anticoagulation Centralized Clinical Pharmacy Services, Ciera Griffin [address] [place] [address] [place] [address] [facility], [facility] [address] [place] [address] Health Maintenance Due Date Last Done Comments DISCUSS TOBACCO CESSATION (REFER TO SMARTSET #8663) 1970 HIV Screening 1985 Pneumococcal Vaccine: Pediatrics [...] this encounter Medical Devices Implanted Type Area Retail Operations Manager Device Identifier Shelf Expiration Date Model / Serial / Lot Tube Flex 3.0x2.5 [id number] - [id number] Implanted:Qty: 1 on 12/07/2014 by Juancarlos Trinidad MD at [facility] Left: Finger LANDON : ORTHOPAEDICS 11/18/2015 [id number] / / [id number] documented as of this encounter Advance Directives [...] (no specific identity) Health Care Power of Aqua Ammonia Operator Care Teams Sales Promotion Officer Relationship Specialty Start Date End Date Kehinde Mc MD [address] [place] [address] PCP - General Internal Medicine 03/28/24 documented as of this encounter
--- OUTSIDE RECORDS SUMMARY | 2024-10-12 00:47 | External Medical Summary | Summary of Care ---
Author Name Unknown Organization [facility] Address [address] [place] [address] Phone [phone] Care Team Providers Care Professor Of Physical Education Name Role Phone Kehinde Mc MD Primary Care Provider [phone] Reason for Visit * Reason Onset Date Comments Advice 08/15/2024 Encounter Details Date Type Department Care Team (Late st Contact Info) Description 08/15/2024 Telephone [facility] [address] [facility] [place] [address] Kehinde Mc MD [address] [place] [address] Advice Allergies Active Allergy Reactions [...] before bedtime. 04/19/20 22 Active nystatin (NYSTOP) 061275 UNIT/GM powderIndications:C utaneous candidiasis Apply topically to affected area 3 times a day. 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 1 Each 1 [...] Hour (toPROL XL)Indications:Freddie nary artery disease involving ewiiaapaayp coronary artery of ewiiaapaayp heart without angina pectoris TAKE 1 & [...] MCG/ACT Inhalation Aerosol Powder Breath Activated (umeclidinium [place]) Inhale 1 Puff by mouth in the [...] hemorrhage 10/04/2020 Coronary artery disease invo lving ewiiaapaayp heart without angina pectoris 10/04/2020 COPD, group [...] of kidney 08/20/2015 8 Overview (08/21/2015): right, [place] CT Vitamin D deficiency 01/31/2015 018 Body [...] [place] LPN - 08/15/2024 3:12 PM EST Concerns Tracey RN, Calling from: [email or web address] Report/Concerns of: URI wheezing Symptoms: see narrative Vitals: T98.6 P87 RR18 BP 125/78 SP O2 94% RA Lung sounds wheezing Narrative: pt was prescribed z-hector last week for URI. His sx continue, he still has has wheezing. He is using his neb tx and inhalers. Tracey inquiring if additional meds should be prescribed? Call back Stanton with any advice or orders at [phone] * Telephone Encounter - Coco Escoto OSA - 08/15/2024 3:10 PM EST Reason for patient's call: Tracey bay RN from [facility] Caller was transferred to [place] at the nurse line. documented in this encounter Plan of Treatment Upcoming Encounters Date Type Department Care Team (Late st Contact Info) Description 08/29/2024 6:00 AM EST Anticoagulation Centralized Clinical Pharmacy Services, Ciera Griffin [address] [place] [address] [place] [address] [facility], [address] [place] [address] Health Maintenance Due Date Last Done Comments DISCUSS TOBACCO CESSATION (REFER TO SMARTSET #0938) 1970 HIV Screening 1985 Pneumococcal Vaccine: Pediatrics [...] this encounter Medical Devices Implanted Type Area Leak Operator Paraffin [employer] Device Identifier Shelf Expiration Date Model / Serial / Lot Tube Flex 3.0x2.5 [id number] - [id number] Implanted:Qty: 1 on 12/07/2014 by Juancarlos Trinidad MD at [facility] Left: Finger [employer]ON : ORTHOPAEDICS 11/18/2015 [id number] / / [id number] documented as of this encounter Visit Diagnoses [...] (no specific identity) Health Care Power of Nip Wrapper Care Teams Professor Of Physical Education Relationship Specialty Start Date End Date Kehinde Mc MD [address] [place] [address] PCP - General Internal Medicine 03/28/24 documented as of this encounter
[2024-10-12] MEDS: ATORVASTATIN 40 MG TAB PO SCH (01:53)
[2024-10-12] MEDS: buprenorphine HCL 8 MG SUBL SL SCH ×2 (01:53→14:13)
[2024-10-12] MEDS: PANTOprazole 40 MG TAB PO SCH (01:54)
[2024-10-12] MEDS: GABAPENTIN 800 MG TAB PO SCH (01:54)
[2024-10-12] MEDS: METOPROLOL SUCC 25MG EXT REL TAB PO SCH (01:54)
[2024-10-12] MEDS: FAMOTIDINE 20 MG TAB PO SCH (01:54)
[2024-10-12] MEDS: POTASSIUM CHLORIDE CRTAB 20 MEQ TABCR PO SCH ×2 (01:55→09:23)
[2024-10-12] MEDS: FUROSEMIDE 40 MG/4 ML VIAL IV SCH (01:55)
[2024-10-12] MEDS: WARFARIN SOD 5 MG TAB PO SCH (01:55)
[2024-10-12] MEDS: DOCUSATE SODIUM 100 MG CAP PO SCH (01:58)
[2024-10-12] MEDS: BUDESONIDE 0.5 MG/2 ML VIAL (PULMICORT) INH SCH (02:00)
[2024-10-12] MEDS: CYCLOBENZAPRINE HCL 10 MG TAB PO PRN (02:55)
[2024-10-12 03:57] LABS: Basophils # (auto) 0.08 K/uL (0.00-0.20); Basophils % (auto) 0.5 %; Eosinophils # (auto) 0.01 K/uL (0.00-0.50); Eosinophils % (auto) 0.1 %; Hematocrit (blood only) 37.6 % (42.0-52.0); Hemoglobin 12.1 g/dl (14.0-18.0); Immature Granulocytes # (auto) 0.45 K/uL (0.01-0.20); Immature Granulocytes % (auto) 2.6 %; Lymphocytes % (auto) 8.7 %; Mean Corpuscular Hemoglobin 25.5 pg (25.0-34.0); Mean Corpuscular Hgb Conc 32.2 g/dL (32.0-36.0); Mean Corpuscular Volume 79.2 fL (80.0-100.0); Mean Platelet Volume 10.6 fL (9.4-12.4); Monocytes # (auto) 0.28 K/uL (0.11-0.59); Monocytes % (auto) 1.6 %; Neutrophils # (auto) 14.99 K/uL (1.40-6.50); Neutrophils % (auto) 86.5 %; Platelet Count 272 K/uL (130-400); RDW Coefficient of Variation 21.9 % (11.5-14.5); RDW Standard Deviation 62.2 fL (36.4-46.3); Red Blood Count 4.75 M/uL (4.70-6.10); White Blood Count 17.31 K/ul (4.8-10.8)
[2024-10-12 04:13] LABS: Anisocytosis Present
[2024-10-12 04:27] LABS: INR 3.1 (0.9-1.1); Prothrombin Time 30.7 Seconds (9.0-12.0)
[2024-10-12] MEDS ORDERED: INSULIN ASPART PER UNIT CHARGE SC STA (04:36)
[2024-10-12 04:38] LABS: BUN Creatinine Ratio 16.2 (10-20); Calcium 8.5 mg/dl (8.6-10.3); Creatinine Clr Calc Pharmacy 133.1 ml/min; Potassium 4.1 mmol/L (3.5-5.1)
[2024-10-12] MEDS: FINASTERIDE 5 MG TAB PO SCH (09:15)
[2024-10-12] MEDS: ASPIRIN 81 MG ECTAB PO SCH (09:15)
[2024-10-12] MEDS: SPIRONOLACTONE 25 MG TAB PO SCH (09:16)
[2024-10-12] MEDS: FLUTICASONE/VILANTEROL 200/25MCG 14 PUFFS/INHALER INH SCH (09:18)
[2024-10-12] MEDS: TAMSULOSIN HCL 0.4 MG CAP PO SCH (09:21)
[2024-10-12] MEDS: FERROUS SULFATE 325 MG TAB PO SCH (09:22)
[2024-10-12] MEDS: ISOSORBIDE DINITRATE 20 MG TAB PO SCH (09:22)
[2024-10-12] MEDS: FOLIC ACID 1 MG TAB PO SCH (09:25)
[2024-10-12] MEDS: MAGNESIUM OXIDE 400 MG TAB PO SCH (09:25)
[2024-10-12] MEDS: ADVANCED PROBIOTIC 625 MG CAPSULE PO SCH (09:26)
[2024-10-12] MEDS: DULoxetine HCL 60 MG CAP PO SCH (09:26)
[2024-10-12] MEDS: oxyCODONE HCL IR 5 MG TAB (IMMEDIATE RELEASE) PO PRN (11:42)
--- NOTE | 2024-10-12 12:31 | Hospitalist Progress Note ---
Date of Service October 12, 2024 Assessment & Plan (1) Acute on chronic diastolic (congestive) heart failure: (2) UTI (urinary tract infection) due to urinary indwelling catheter: (3) Viral upper respiratory infection: (4) COPD (chronic obstructive pulmonary disease): (5) Obesity hypoventilation syndrome: (6) Current use of care home anticoagulation: (7) Chronic indwelling Lloyd catheter: (8) Morbid obesity: Plan Patient with acute decompensated heart failure most likely in the setting of possible catheter associated UTI and viral upper respiratory infection. Continue IV diuresis, patient is responded well Continue to monitor electrolytes and renal functionContinue to monitor INR and dose warfarin daily Continue nebulizer treatments Patient with chronic pain due to avascular necrosis, continue his home pain medications Therapies Continue to monitor glucose and cover with insulin. Patient states he struggles with his insulin dosing at home. Requesting clinical systems educator, consulted Admission and Anticipated Discharge Date Admission Date: October 12, 2024 Subjective Patient is feeling better after some diuresis. Still complains about scratchy throat and a little bit of a cough. Physical Exam Physical Exam: Constitutional: Alert, morbidly obese, nontoxic in appearance HEENT: Mucous membranes moist. Lungs: Decreased breath sounds, few expiratory wheezes CV: S1-S2, regular Abdomen: Soft, nontender, nondistended Extremities: Hard 2-3+ pitting edema lower extremity Neuro: No focal deficits Psych: Cooperative, normal mood Results & Data Results & Data Vital Signs (Past 12 Hours) Vital Signs Pulse Pulse Pulse Resp BP BP Pulse Ox 10/12/24 10:03 64 13 92 10/12/24 09:00 62 10/12/24 08:12 66 10/12/24 07:25 64 10/12/24 07:00 63 13 90 10/12/24 06:12 65 16 10/12/24 06:00 66 18 10/12/24 05:51 66 14 94 10/12/24 05:45 66 15 10/12/24 05:39 66 16 10/12/24 05:24 69 14 10/12/24 05:12 67 16 10/12/24 05:03 74 14 10/12/24 04:54 67 16 10/12/24 04:48 110/57 L 10/12/24 04:48 110/57 L 10/12/24 04:27 69 19 10/12/24 04:15 68 16 10/12/24 04:03 69 12 10/12/24 03:51 70 15 10/12/24 03:42 69 12 10/12/24 03:30 71 12 10/12/24 03:21 78 16 10/12/24 03:12 74 13 10/12/24 03:00 79 16 10/12/24 02:51 73 18 10/12/24 02:41 85 17 141/88 H 98 10/12/24 02:21 69 14 10/12/24 02:18 74 20 10/12/24 02:01 66 17 96 10/12/24 02:00 67 13 94 10/12/24 02:00 66 10/12/24 01:54 74 14 10/12/24 01:48 69 12 10/12/24 01:30 69 15 10/12/24 01:21 73 16 10/12/24 01:18 75 13 10/12/24 01:08 80 18 141/77 H 91 10/12/24 01:00 77 13 10/12/24 00:51 71 18 10/12/24 00:30 73 16 O2 Del Method 10/12/24 10:03 10/12/24 09:00 10/12/24 08:12 10/12/24 07:25 10/12/24 07:00 10/12/24 06:12 10/12/24 06:00 10/12/24 05:51 Nasal Cannula 10/12/24 05:45 10/12/24 05:39 10/12/24 05:24 10/12/24 05:12 10/12/24 05:03 10/12/24 04:54 10/12/24 04:48 10/12/24 04:48 10/12/24 04:27 10/12/24 04:15 10/12/24 04:03 10/12/24 03:51 10/12/24 03:42 10/12/24 03:30 10/12/24 03:21 10/12/24 03:12 10/12/24 03:00 10/12/24 02:51 10/12/24 02:41 Room Air 10/12/24 02:21 10/12/24 02:18 10/12/24 02:01 Room Air 10/12/24 02:00 10/12/24 02:00 10/12/24 01:54 10/12/24 01:48 10/12/24 01:30 10/12/24 01:21 10/12/24 01:18 10/12/24 01:08 Room Air 10/12/24 01:00 10/12/24 00:51 10/12/24 00:30 Diagnostic Findings Reviewed imaging, laboratory and diagnostic studies. Pertinent findings as below. Intake and output -5 L WBC 17.3 Hemoglobin 12.1 INR 3.1 Sodium 134 Potassium 4.1 Creatinine 0.99 (4) COPD (chronic obstructive pulmonary disease) COPD type: unspecified COPD Qualified Code(s): J44.9 - Chronic obstructive pulmonary disease, unspecified
[2024-10-12] MEDS: AZITHROMYCIN 250 MG TAB PO SCH (13:02)
--- NOTE | 2024-10-12 14:50 | Pharmacy Report ---
Pharmacy Glycemic Short Note 2 - Date of Service October 12, 2024 - Glycemic Short BSG Results (Last 24 hours): 10/11/24 10/11/24 10/12/24 18:31 20:38 00:21 Glucose 160 H POC Glucose 203 H 377 H* 10/12/24 10/12/24 10/12/24 00:23 03:37 09:11 Glucose 400 H* POC Glucose 361 H* 343 H* 10/12/24 12:07 Glucose POC Glucose 321 H* OUTPATIENT ANTIDIABETIC REGIMEN: * GLIPIZIDE 10 mg PO BID * Insulin Lispro (Admelog SoloStar) - unknown dose * Ozempic SC HbA1c: 8.1% on 08/29/24 ASSESSMENT: * 54 y/o M admitted for acute CHF symptoms, UTI and viral respiratory infection. Patient is known to pharmacy glycemic service from recent admissions. * Based on data from recent admission, basal insulin 40 units given last night and continued for HS today. * Patient had received one dose of IV solu medrol yesterday evening. BSG trended up to 400 mg/dl early today AM. He received 14 units of insulin at that time. * BSG continued to be high above 300 mg/dl this morning. Patient is being held in the ED inpatient side. I called and requested insulin to be given this morning with breakfast but this was omitted. * Pre-lunch BSG still high at 321 mg/dl, this was covered. Expect BSGs to trend down by this evening. * Overnight checks added. PLAN FOR INPATIENT GLYCEMIC CONTROL: * Hold outpatient oral diabetes medications * Basal insulin * Lantus 40 units SQ HS * Bolus insulin * NovoLog per scale ACHS or Q6hrs while NPO. Added 00 and 04 checks * Goal Range: Low 110 mg/dL - High 140 mg/dL * Correction Factor: 20 mg/dL/unit * Nutritional / Prandial insulin per carb ratio of 1 unit per 7 grams CHO consumed
[2024-10-12] MEDS ORDERED: WARFARIN SOD 2.5 MG TAB PO SCH (16:00)
[2024-10-12] MEDS ORDERED: WARFARIN SOD 4 MG TAB PO SCH (16:00)
[2024-10-12] MEDS: WARFARIN SOD 2.5 MG TAB PO ONE (18:52)
[2024-10-12] MEDS: cefTRIAXone SODIUM 2,000 MG/50 ML BAG IV SCH (19:26)
[2024-10-12] MEDS: COUGH DROP (SUGAR FREE) LOZ 24 LOZ/1 BOX BUCCAL ONE (21:30)
[2024-10-12] MEDS: LANTUS PER UNIT CHARGE SQ SCH (21:39)
[2024-10-12] MEDS ORDERED: CHLORASEPTIC (PHENOL) 1.4% SOLN 180 ML BTL MT PRN (23:16)
[2024-10-13] MEDS: INSULIN ASPART PER UNIT CHARGE SC SCH (00:52)
[2024-10-13 09:48] LABS: Hematocrit (blood only) 38.6 % (42.0-52.0); Hemoglobin 12.2 g/dl (14.0-18.0); Mean Corpuscular Hemoglobin 25.2 pg (25.0-34.0); Mean Corpuscular Hgb Conc 31.6 g/dL (32.0-36.0); Mean Corpuscular Volume 79.6 fL (80.0-100.0); Platelet Count 252 K/uL (130-400); RDW Coefficient of Variation 22.6 % (11.5-14.5); RDW Standard Deviation 63.4 fL (36.4-46.3); Red Blood Count 4.85 M/uL (4.70-6.10); White Blood Count 14.68 K/ul (4.8-10.8)
[2024-10-13 10:00] LABS: Calcium 9.1 mg/dl (8.6-10.3); Creatinine Clr Calc Pharmacy 139.9 ml/min
[2024-10-13 10:13] LABS: INR 3.5 (0.9-1.1); Prothrombin Time 33.6 Seconds (9.0-12.0)
--- NOTE | 2024-10-13 10:44 | Pharmacy Report ---
Pharmacy Glycemic Short Note 2 - Date of Service October 13, 2024 - Glycemic Short BSG Results (Last 24 hours): 10/12/24 10/12/24 10/12/24 12:07 17:52 20:23 Glucose POC Glucose 321 H* 190 H 168 H 10/13/24 10/13/24 10/13/24 00:36 02:58 08:08 Glucose POC Glucose 261 H 230 H 207 H 10/13/24 09:29 Glucose 223 H POC Glucose OUTPATIENT ANTIDIABETIC REGIMEN: * GLIPIZIDE 10 mg PO BID * Insulin Lispro (Admelog SoloStar) - unknown dose * Ozempic SC HbA1c: 8.1% on 08/29/24 ASSESSMENT: 10/13 * Patient received a total of 101 units of insulin yesterday (40 units were basal and 61 units were bolus). * Despite BSGs trending down yesterday, they still all remained above goal. Fasting BSG was 207mg/dL this morning. Will increase lantus dose by ~10% (to 45 units q HS.) * Will tighten CR as lunch BSG still remained elevated at 207mg/dL. 10/12 * 54 y/o M admitted for acute CHF symptoms, UTI and viral respiratory infection. Patient is known to pharmacy glycemic service from recent admissions. * Based on data from recent admission, basal insulin 40 units given last night and continued for HS today. * Patient had received one dose of IV solu medrol yesterday evening. BSG trended up to 400 mg/dl early today AM. He received 14 units of insulin at that time. * BSG continued to be high above 300 mg/dl this morning. Patient is being held in the ED inpatient side. I called and requested insulin to be given this morning with breakfast but this was omitted. * Pre-lunch BSG still high at 321 mg/dl, this was covered. Expect BSGs to trend down by this evening. * Overnight checks added. PLAN FOR INPATIENT GLYCEMIC CONTROL: * Hold outpatient oral diabetes medications * Basal insulin * Lantus 45 units SQ HS * Bolus insulin * NovoLog per scale ACHS or Q6hrs while NPO. Added 00 and 04 checks * Goal Range: Low 110 mg/dL - High 140 mg/dL * Correction Factor: 20 mg/dL/unit * Nutritional / Prandial insulin per carb ratio of 1 unit per 6 grams CHO consumed
--- NOTE | 2024-10-13 11:45 | Hospitalist Progress Note ---
Date of Service October 13, 2024 Assessment & Plan (1) Acute on chronic diastolic (congestive) heart failure: (2) UTI (urinary tract infection) due to urinary indwelling catheter: (3) Viral upper respiratory infection: (4) COPD (chronic obstructive pulmonary disease): (5) Obesity hypoventilation syndrome: (6) Current use of office director anticoagulation: (7) Chronic indwelling Lloyd catheter: (8) Morbid obesity: Plan Patient with acute on chronic heart failure responding to IV diuresis Continue IV Lasix Dose warfarin daily, INR increased a bit today. Suspect this is a effect of the Zithromax. Will hold warfarin today Continue Rocephin for presumed urinary tract infection, culture no growth, however patient did take antibiotics prior to coming into the hospital and getting culture obtained Monitor renal function and electrolytes Discussed the patient the importance of sodium and fluid restriction. He is insistent on having these dietary restrictions lifted. He states he will self monitor. Admission and Anticipated Discharge Date Admission Date: October 11, 2024 Subjective Patient requesting withdrawal of salt and fluid restriction diet. He also shared that he did take some antibiotics at home prior to coming to the hospital which may impact his urine culture. Overall he is pleased with progress made on diuresis. Physical Exam Physical Exam: Constitutional: Alert, morbidly obese HEENT: Mucous membranes moist. Lungs: Decreased CV: S1-S2, regular Abdomen: Soft, nontender, nondistended Extremities: Decreased edema lower extremity Neuro: No focal deficits Psych: Cooperative, normal mood Results & Data Results & Data Vital Signs (Past 12 Hours) Vital Signs Temp Pulse Pulse Resp BP Pulse Ox O2 Del Method 10/13/24 07:54 36.5 C 61 16 128/67 99 Nasal Cannula 10/13/24 07:37 65 10/13/24 02:55 36.6 C 66 20 125/62 98 Nasal Cannula O2 Flow Rate 10/13/24 07:54 4 10/13/24 07:37 10/13/24 02:55 4 Diagnostic Findings Reviewed imaging, laboratory and diagnostic studies. Pertinent findings as below. WBCs 14.6, improved Hemoglobin 12.2 INR 3.5 Potassium 4.0 Creatinine 1.0 Glucose reviewed Reviewed intake and output. -4.5 L. Weight does not match. Trust intake and output overweight given the fact that he has a Lloyd catheter (4) COPD (chronic obstructive pulmonary disease) COPD type: unspecified COPD Qualified Code(s): J44.9 - Chronic obstructive pulmonary disease, unspecified
[2024-10-13] MEDS: guaiFENesin 600 MG TABCR PO PRN (19:55)
[2024-10-13] MEDS: LANTUS PER UNIT CHARGE SQ SCH (20:40)
[2024-10-14 06:46] LABS: Hematocrit (blood only) 37.7 % (42.0-52.0); Hemoglobin 12.1 g/dl (14.0-18.0); Mean Corpuscular Hemoglobin 25.4 pg (25.0-34.0); Mean Corpuscular Hgb Conc 32.1 g/dL (32.0-36.0); Mean Corpuscular Volume 79.2 fL (80.0-100.0); Mean Platelet Volume 10.6 fL (9.4-12.4); Platelet Count 285 K/uL (130-400); RDW Coefficient of Variation 22.4 % (11.5-14.5); RDW Standard Deviation 61.9 fL (36.4-46.3); Red Blood Count 4.76 M/uL (4.70-6.10); White Blood Count 17.48 K/ul (4.8-10.8)
[2024-10-14 07:00] LABS: INR 2.9 (0.9-1.1); Prothrombin Time 28.4 Seconds (9.0-12.0)
[2024-10-14 07:03] LABS: BUN Creatinine Ratio 21.7 (10-20); Calcium 9.2 mg/dl (8.6-10.3)
--- NOTE | 2024-10-14 12:25 | Hospitalist Progress Note ---
Date of Service October 14, 2024 Assessment & Plan (1) Acute on chronic diastolic (congestive) heart failure: (2) UTI (urinary tract infection) due to urinary indwelling catheter: (3) Viral upper respiratory infection: (4) COPD (chronic obstructive pulmonary disease): (5) Obesity hypoventilation syndrome: (6) Current use of [facility] anticoagulation: (7) Chronic indwelling Lloyd catheter: (8) Morbid obesity: (9) Neutrophilic leukocytosis: Plan Patient continues to respond to diuresis s will transition to oral diuretics Completed course of Rocephin for suspected UTI. Observe off antibiotics Suspect this is a noninfectious leukocytosis. Cultures have been negative. Suspected may be due to chronic inflammation. Continue to monitor electrolytes and renal function Procalcitonin was low on admission, decreasing suspicion for bacterial infection Check CRP and ESR May benefit from outpatient hematology eval Daily dose warfarin Admission and Anticipated Discharge Date Admission Date: October 11, 2024 Subjective Patient concerned about his WBCs. However he reports he is continuing to feel better each day. Reports Lloyd catheter has been in for years now Physical Exam Physical Exam: Constitutional: Alert, morbidly obese HEENT: Mucous membranes moist. Lungs: Clear to auscultation, decreased, no wheezes rales or rhonchi CV: S1-S2, regular Abdomen: Soft, nontender, nondistended Extremities: Edema significantly decreased in lower extremities, skin is loose and will wrinkle Neuro: No focal deficits Psych: Cooperative, normal mood Results & Data Results & Data Vital Signs (Past 12 Hours) Vital Signs Temp Pulse Resp BP Pulse Ox O2 Del Method 10/14/24 11:00 36.5 C 74 18 125/72 98 Room Air 10/14/24 08:00 Room Air 10/14/24 07:00 36.5 C 62 18 142/69 H 98 Room Air 10/14/24 03:07 36.5 C 65 20 126/78 96 Room Air Diagnostic Findings Reviewed imaging, laboratory and diagnostic studies. Pertinent findings as below. WBCs 17.4 reviewed his WBCs over the past year year and a half, has been chronically elevated, fluctuating anywhere from 11-19. INR 2.9 Creatinine 0.92 (4) COPD (chronic obstructive pulmonary disease) COPD type: unspecified COPD Qualified Code(s): J44.9 - Chronic obstructive pulmonary disease, unspecified
[2024-10-14] MEDS: WARFARIN SOD 4 MG TAB PO SCH (15:35)
[2024-10-14] MEDS: FUROSEMIDE 80 MG TAB PO SCH (16:59)
[2024-10-14] MEDS: ALBUTEROL HFA 8 GM INHALER INH PRN (19:55)
[2024-10-15 07:30] LABS: Basophils # (auto) 0.13 K/uL (0.00-0.20); Basophils % (auto) 0.8 %; Eosinophils # (auto) 0.32 K/uL (0.00-0.50); Eosinophils % (auto) 1.9 %; Hemoglobin 11.7 g/dl (14.0-18.0); Immature Granulocytes # (auto) 0.44 K/uL (0.01-0.20); Immature Granulocytes % (auto) 2.7 %; Lymphocytes # (auto) 3.55 K/uL (1.20-3.40); Lymphocytes % (auto) 21.6 %; Mean Corpuscular Hemoglobin 25.4 pg (25.0-34.0); Mean Corpuscular Hgb Conc 32.5 g/dL (32.0-36.0); Mean Corpuscular Volume 78.3 fL (80.0-100.0); Mean Platelet Volume 10.7 fL (9.4-12.4); Monocytes # (auto) 0.73 K/uL (0.11-0.59); Monocytes % (auto) 4.4 %; Neutrophils # (auto) 11.29 K/uL (1.40-6.50); Neutrophils % (auto) 68.6 %; Platelet Count 269 K/uL (130-400); RDW Coefficient of Variation 22.2 % (11.5-14.5); RDW Standard Deviation 61.5 fL (36.4-46.3); White Blood Count 16.46 K/ul (4.8-10.8)
[2024-10-15 07:55] LABS: BUN Creatinine Ratio 22.7 (10-20); C Reactive Protein 1.21 mg/dl (0-0.5); Calcium 9.2 mg/dl (8.6-10.3); Creatinine Clr Calc Pharmacy 145.2 ml/min; Potassium 4.1 mmol/L (3.5-5.1)
[2024-10-15 08:06] LABS: Anisocytosis Present
[2024-10-15 08:10] LABS: INR 1.9 (0.9-1.1); Prothrombin Time 19.3 Seconds (9.0-12.0)
[2024-10-15] MEDS: ONDANSETRON 4 MG OD TAB PO PRN (09:41)
--- NOTE | 2024-10-15 13:19 | Hospitalist Progress Note ---
Date of Service October 15, 2024 Assessment & Plan (1) Acute on chronic diastolic (congestive) heart failure: (2) UTI (urinary tract infection) due to urinary indwelling catheter: (3) Viral upper respiratory infection: (4) COPD (chronic obstructive pulmonary disease): (5) Obesity hypoventilation syndrome: (6) Current use of group home anticoagulation: (7) Chronic indwelling Lloyd catheter: (8) Morbid obesity: (9) Neutrophilic leukocytosis: Plan Patient admitted for decompensated heart failure. Has responded well to diuresis and is in essentially is compensated state. On oral diuretics. Initial plan was for him to be discharged tomorrow when he had a ride. Now with patient's new complaints may need to consider rehab. Will need therapy evaluation Repeat viral respiratory panel, Throat culture with patient's complaint of sore throat and congestion Continue current dose warfarin, this is higher than what he would been at home. Continue to monitor off antibiotics. Patient with persistent leukocytosis may need outpatient hematology evaluation after discharge Admission and Anticipated Discharge Date Admission Date: October 11, 2024 Subjective Patient reports that he is feeling "terrible" today seems to have more of a sore throat and congestion. Also states now is very difficult for him to ambulate due to his chronic right leg issues including hip and knee. Very concerned that he might not be able to go home. He states his cannot take care of him at home if he cannot ambulate very well Physical Exam Physical Exam: Constitutional: Alert, nontoxic, morbidly obese HEENT: Mucous membranes moist. Lungs: Clear to auscultation, decreased, no wheezes rales or rhonchi CV: S1-S2, regular Abdomen: Soft, nontender, nondistended Extremities: Edema in lower extremities significantly improved Neuro: No focal deficits Psych: Cooperative, normal mood Results & Data Results & Data Vital Signs (Past 12 Hours) Vital Signs Temp Pulse Resp BP Pulse Ox O2 Del Method 10/15/24 07:17 36.5 C 62 20 115/68 98 Room Air Diagnostic Findings Reviewed imaging, laboratory and diagnostic studies. Pertinent findings as below. WBCs 16.4 Hemoglobin 11.7 ESR 22 INR 1.9 Electrolytes stable C-reactive protein 1.2 (4) COPD (chronic obstructive pulmonary disease) COPD type: unspecified COPD Qualified Code(s): J44.9 - Chronic obstructive pulmonary disease, unspecified
[2024-10-15 16:21] LABS: Adenovirus PCR Not Detected (NotDetected); Bordetella parapertussis PCR Not Detected (NotDetected); Bordetella pertussis PCR Not Detected (NotDetected); Chlamydia pneumoniae PCR Not Detected (NotDetected); Coronavirus 229E PCR Not Detected (NotDetected); Coronavirus CoV-2 (COVID19)PCR Not Detected (NotDetected); Coronavirus HKU1 PCR Not Detected (NotDetected); Coronavirus NL63 PCR Not Detected (NotDetected); Coronavirus OC43PCR Not Detected (NotDetected); Human Metapneumovirus PCR Not Detected (NotDetected); Influenza A PCR Not Detected (NotDetected); Influenza B PCR Not Detected (NotDetected); Mycoplasma pneumoniae PCR Not Detected (NotDetected); Parainfluenza Virus 1 PCR Not Detected (NotDetected); Parainfluenza Virus 2 PCR Not Detected (NotDetected); Parainfluenza Virus 3 PCR Not Detected (NotDetected); Parainfluenza Virus 4 PCR Not Detected (NotDetected); Respiratory Syncytial VirusPCR Not Detected (NotDetected); Rhinovirus/Enterovirus PCR Not Detected (NotDetected)
[2024-10-15] MEDS: LANTUS PER UNIT CHARGE SQ SCH (21:19)
[2024-10-15] MEDS: COUGH DROP (SUGAR FREE) LOZ 24 LOZ/1 BOX BUCCAL PRN (21:22)
[2024-10-16] MEDS ORDERED: COUGH DROP (SUGAR FREE) LOZ 24 LOZ/1 BOX BUCCAL PRN (03:10)
[2024-10-16] MEDS: guaiFENesin SUGAR FREE 200 MG/10 ML UDC PO STA (03:23)
[2024-10-16 07:10] LABS: Basophils # (auto) 0.11 K/uL (0.00-0.20); Basophils % (auto) 0.7 %; Eosinophils # (auto) 0.41 K/uL (0.00-0.50); Eosinophils % (auto) 2.5 %; Hemoglobin 11.7 g/dl (14.0-18.0); Immature Granulocytes # (auto) 0.32 K/uL (0.01-0.20); Lymphocytes # (auto) 3.56 K/uL (1.20-3.40); Mean Corpuscular Hemoglobin 25.2 pg (25.0-34.0); Mean Corpuscular Hgb Conc 31.6 g/dL (32.0-36.0); Mean Corpuscular Volume 79.7 fL (80.0-100.0); Mean Platelet Volume 10.3 fL (9.4-12.4); Monocytes # (auto) 0.75 K/uL (0.11-0.59); Monocytes % (auto) 4.6 %; Neutrophils # (auto) 11.03 K/uL (1.40-6.50); Neutrophils % (auto) 68.2 %; Platelet Count 262 K/uL (130-400); RDW Coefficient of Variation 22.3 % (11.5-14.5); RDW Standard Deviation 63.2 fL (36.4-46.3); Red Blood Count 4.64 M/uL (4.70-6.10); White Blood Count 16.18 K/ul (4.8-10.8)
[2024-10-16 07:32] LABS: INR 1.7 (0.9-1.1); Prothrombin Time 17.6 Seconds (9.0-12.0)
[2024-10-16 08:04] LABS: Anisocytosis Present; Ovalocytes 1+
--- NOTE | 2024-10-16 09:21 | Hospitalist Progress Note ---
Date of Service October 16, 2024 Assessment & Plan (1) Acute on chronic diastolic (congestive) heart failure: (2) UTI (urinary tract infection) due to urinary indwelling catheter: (3) Viral upper respiratory infection: (4) COPD (chronic obstructive pulmonary disease): (5) Obesity hypoventilation syndrome: (6) Current use of [facility] anticoagulation: (7) Chronic indwelling Fontaine catheter: (8) Morbid obesity: (9) Neutrophilic leukocytosis: Plan Mr. Milner is a 54-year-old gentleman with past medical history significant for COPD, morbid obesity, type 2 diabetes, chronic diastolic heart failure, prior CAD/STEMI per records,hypertension, hyperlipidemia, prior PE on Coumadin, mood disorder, medication noncompliance, current active smoker, chronic indwelling fontaine catheter, prior subdural hematoma/subarachnoid hemorrhage, iron deficiency anemia, depression with anxiety, venous insufficiency, chronic pain on buprenorphine, prior MRSA/VRE who is admitted for acute decompensated heart failure. Patient responded to IV lasix, trans itioned to PO lasix. Patient with pain overall and working to improve ambultion. PT reports patient is at PLOF and to d/c home. Will encourage symptom management and perhaps OP PT/OT #congestion #postnasal drip resp panel negative supportive management start flonase #Right leg pain start Voltaren gel encourage ambulation #Urethral burning topical urojet #Acute on chronic heart failure with preserved EF #Chronic RBBB ECHO 08/2024 limited 2/2 habitus but gross appearance of EF normal continue imdur, metoprolol XL BID continue lasix and kcl, increased to 80 BID continue spironolactone #chronic indwelling fontaine #BPH continue finasteride #history of PE on 2.5mg Tu, Micki, 5 mg all other days as of AC OP recommendations 10/11 Start 6 mg Coumadin while inpatient INR in am #tobacco use nicotine patch #Chronic pain On buprenorphine oxycodone prn Also on gabapentin 800mg tid and Cymbalta 60mg dailly #Hypertension On beta-nasim and Imdur and diuretics #Diabetes Holding p.o. medications Insulin sliding scale We will monitor Dvt warfarin PT/OT home given PLOF Admission and Anticipated Discharge Date Admission Date: October 11, 2024 Subjective Patient reports feeling rough overall given RLE pain since fall sustained month ago, reports some improvement with voltaren Patient notes burning around the tip of his penis where the fontaine enters--noting it only happens when he "flexes" and it is quite uncomfortable--not persistent, no discharge, no lesions Patient reports sore throat, states he is on flonase at home usually to help Reports not feeling safe yet for d/c Physical Exam Constitutional: WD/WN, vitals as above Respiratory: nonlabored, conversational Skin: assess area of glans and fontaine insertion site, no lesions, discharge, erythema noted Results & Data Results & Data Vital Signs (Past 12 Hours) Vital Signs Temp Pulse Resp BP Pulse Ox O2 Del Method O2 Flow Rate 10/16/24 07:06 36.7 C 63 20 104/66 100 Nasal Cannula 4 10/15/24 21:10 Room Air, Nasal Cannula 2 Laboratory Results Short CBC 10/16/24 Range/Units 06:49 WBC 16.18 H (4.8-10.8) K/ul Hgb 11.7 L (14.0-18.0) g/dl Hct 37.0 L (42.0-52.0) % Plt Count 262 (130-400) K/uL Medications Administered Home Medications Medication Instructions Recorded Confirmed Last Taken Lactobacillus acidophilus 1 1,000 mmu cells PO QAM 08/29/24 10/11/24 10/11/24 billion cell tablet albuterol sulfate 90 mcg/actuation 2 inh inhalation Q4H PRN Shortness 08/29/24 10/11/24 Unknown aerosol inhaler Of Breath Or Wheezing aspirin 81 mg tablet,delayed 81 mg PO QAM 08/29/24 10/11/24 10/11/24 release atorvastatin 80 mg tablet 80 mg PO PM 08/29/24 10/11/24 10/10/24 budesonide 0.5 mg/2 mL suspension 0.5 mg inhalation BID 08/29/24 10/11/24 0 10/11/24 for nebulization am buprenorphine HCl 8 mg sublingual 8 mg sublingual UD 08/29/24 10/11/24 10/11/24 tablet am only cyclobenzaprine 10 mg tablet 10 mg PO BID PRN muscle spasms 08/29/24 10/11/24 Unknown docusate sodium 100 mg capsule 100 mg PO BID 08/29/24 10/11/24 10/11/24 (Colace) am duloxetine 60 mg capsule,delayed 60 mg PO QAM 08/29/24 10/11/24 10/11/24 release famotidine 20 mg tablet 20 mg PO HS 08/29/24 10/11/24 10/10/24 ferrous sulfate 325 mg (65 mg 325 mg PO QAM 08/29/24 10/11/24 10/11/24 iron) tablet finasteride 5 mg tablet 5 mg PO QAM 08/29/24 10/11/24 10/11/24 fluticasone 250 mcg-salmeterol 50 1 inh inhalation BID 08/29/24 10/11/24 10/11/24 mcg/dose blistr powdr for am inhalation folic acid 1 mg tablet 1 mg PO QAM 08/29/24 10/11/24 10/11/24 glipizide 10 mg tablet 10 mg PO BID 08/29/24 10/11/24 10/11/24 isosorbide dinitrate 30 mg tablet 30 mg PO QAM 08/29/24 10/11/24 10/11/24 magnesium oxide 400 mg (241.3 mg 400 mg PO QAM 08/29/24 10/11/24 10/11/24 magnesium) tablet metoprolol succinate 50 mg 75 mg PO BID 08/29/24 10/11/24 10/11/24 tablet,extended release 24 hr am dose ondansetron HCl 4 mg tablet 4 mg PO TID PRN Nausea And Vomiting 08/29/24 10/11/24 Unknown oxycodone 10 mg tablet 10 mg PO BID PRN Pain, Severe 08/29/24 10/11/24 Unknown spironolactone 25 mg tablet 25 mg PO QAM 08/29/24 10/11/24 10/11/24 tamsulosin 0.4 mg capsule 0.4 mg PO QAM 08/29/24 10/11/24 10/11/24 warfarin 4 mg tablet 4 mg PO UD 08/29/24 10/11/24 Unknown pantoprazole 40 mg tablet,delayed 40 mg PO BID #60 tabs 09/04/24 10/11/24 10/11/24 release am potassium chloride 20 mEq 20 meq PO HS #30 tabs 09/04/24 10/11/24 10/10/24 tablet,extended release(part/cryst) potassium chloride 20 mEq 40 meq (2 x 20 mEq) PO QAM #60 tabs 09/04/24 10/11/24 10/11/24 tablet,extended release(part/cryst) furosemide 40 mg tablet 40 mg PO BID 10/11/24 10/11/24 10/11/24 am dose gabapentin 800 mg tablet 800 mg PO TID 10/11/24 10/11/24 10/11/24 am furosemide 80 mg tablet 80 mg PO [id number] #60 tabs 10/15/24 Unknown guaifenesin 600 mg tablet, 1,200 mg (2 x 600 mg) PO Q12 PRN 10/15/24 Unknown extended release 12 hr (Mucinex) congestion #30 tabs Active Medications Generic Name Dose Route Start Last Admin Trade Name Freq PRN Reason Stop Dose Admin Albuterol 2 puffs 10/12/24 00:32 10/14/24 19:55 Albuterol Hfa 8 Gm Inhaler INH 11/11/24 00:31 2 puffs Q4H PRN Administration Shortness Of Breath Or Wheezing Aspirin 81 mg 10/12/24 09:00 10/16/24 08:42 Aspirin 81 Mg Ectab PO 11/11/24 08:59 81 mg QAM EMPERATRIZ Administration Atorvastatin Calcium 80 mg 10/12/24 00:32 10/15/24 21:06 Atorvastatin 40 Mg Tab PO 11/11/24 00:31 80 mg PM EMPERATRIZ Administration Budesonide 0.5 mg 10/12/24 00:45 10/16/24 07:08 Budesonide 0.5 Mg/2 Ml Vial (Pulmicort) INH 11/11/24 00:44 Not Given BIDR EMPERATRIZ Buprenorphine HCl 8 mg 10/12/24 00:32 10/16/24 09:06 Buprenorphine Hcl 8 Mg Subl SL 11/11/24 00:31 8 mg BID EMPERATRIZ Administration Buprenorphine HCl 4 mg 10/12/24 14:00 10/16/24 12:18 Buprenorphine Hcl 8 Mg Subl SL 11/11/24 13:59 4 mg 1400 EMPERATRIZ Administration Cyclobenzaprine HCl 10 mg 10/12/24 00:32 10/16/24 08:59 Cyclobenzaprine Hcl 10 Mg Tab PO 11/11/24 00:31 10 mg BID PRN Administration muscle spasms Docusate Sodium 100 mg 10/12/24 00:32 10/16/24 08:59 Docusate Sodium 100 Mg Cap PO 11/11/24 00:31 100 mg BID EMPERATRIZ Administration Duloxetine HCl 60 mg 10/12/24 09:00 10/16/24 08:42 Duloxetine Hcl 60 Mg Cap PO 11/11/24 08:59 60 mg QAM EMPERATRIZ Administration Famotidine 20 mg 10/12/24 00:32 10/15/24 21:07 Famotidine 20 Mg Tab PO 11/11/24 00:31 20 mg HS EMPERATRIZ Administration Ferrous Sulfate 325 mg 10/12/24 09:00 10/16/24 08:43 Ferrous Sulfate 325 Mg Tab PO 11/11/24 08:59 325 mg QAM EMPERATRIZ Administration Finasteride 5 mg 10/12/24 09:00 10/16/24 08:38 Finasteride 5 Mg Tab PO 11/11/24 08:59 5 mg QAM EMPERATRIZ Administration Fluticasone/Vilanterol 1 puffs 10/12/24 09:00 10/16/24 08:39 Fluticasone/Vilanterol 200/25mcg 14 Puffs/Inhaler INH 11/11/24 08:59 1 puffs DAILY EMPERATRIZ Administration Folic Acid 1 mg 10/12/24 09:00 10/16/24 08:42 Folic Acid 1 Mg Tab PO 11/11/24 08:59 1 mg QAM EMPERATRIZ Administration Furosemide 80 mg 10/14/24 17:00 10/16/24 08:49 Furosemide 80 Mg Tab PO 11/13/24 16:59 80 mg [id number] EMPERATRIZ Administration Gabapentin 800 mg 10/12/24 00:32 10/16/24 12:18 Gabapentin 800 Mg Tab PO 11/11/24 00:31 800 mg TID EMPERATRIZ Administration Guaifenesin 1,200 mg 10/13/24 17:58 10/16/24 08:41 Guaifenesin 600 Mg Tabcr PO 11/12/24 20:59 1,200 mg Q12 PRN Administration Congestion Insulin Aspart 0 units 10/11/24 21:00 10/16/24 12:22 Insulin Aspart Per Unit Charge SC 11/10/24 20:59 9 units ACHS EMPERATRIZ Administration Isosorbide Dinitrate 30 mg 10/12/24 09:00 10/16/24 08:43 Isosorbide Dinitrate 20 Mg Tab PO 11/11/24 08:59 30 mg QAM EMPERATRIZ Administration Lactobacillus Acidophilus 625 mg 10/12/24 09:00 10/16/24 08:41 Advanced Probiotic 625 Mg Capsule PO 11/11/24 08:59 625 mg QAM EMPERATRIZ Administration Magnesium Oxide 400 mg 10/12/24 09:00 10/16/24 08:38 Magnesium Oxide 400 Mg Tab PO 11/11/24 08:59 400 mg QAM EMPERATRIZ Administration Metoprolol Succinate 75 mg 10/12/24 00:32 10/16/24 08:50 Metoprolol Succ 25mg Ext Rel Tab PO 11/11/24 00:31 75 mg BID EMPERATRIZ Administration Miscellaneous 1 each 10/12/24 08:59 10/16/24 08:51 Remove Nicoderm Patch N/A 11/11/24 08:58 1 each DAILY@0859 EMPERATRIZ Administration Nicotine 1 patch 10/11/24 21:15 10/16/24 08:51 Nicotine 21 Mg/24 Hr Tdsy TD 11/10/24 21:14 1 patch [facility] [place] Administration Ondansetron HCl 4 mg 10/12/24 00:43 10/15/24 09:41 Ondansetron 4 Mg Od Tab PO 11/11/24 00:42 4 mg TID PRN Administration Nausea And Vomiting Oxycodone HCl 10 mg 10/12/24 11:34 10/16/24 08:58 Oxycodone Hcl Ir 5 Mg Tab (Immediate Release) PO 10/26/24 11:33 10 mg BID PRN Administration Pain, Severe Pantoprazole Sodium 40 mg 10/12/24 00:32 10/16/24 08:38 Pantoprazole 40 Mg Tab PO 11/11/24 00:31 40 mg BID EMPERATRIZ Administration Potassium Chloride 20 meq 10/12/24 00:32 10/15/24 21:06 Potassium Chloride Crtab 20 Meq Tabcr PO 11/11/24 00:31 20 meq HS EMPERATRIZ Administration Potassium Chloride 40 meq 10/12/24 09:00 10/16/24 08:59 Potassium Chloride Crtab 20 Meq Tabcr PO 11/11/24 08:59 40 meq QAM EMPERATRIZ Administration Spironolactone 25 mg 10/12/24 09:00 10/16/24 08:41 Spironolactone 25 Mg Tab PO 11/11/24 08:59 25 mg QAM EMPERATRIZ Administration Tamsulosin HCl 0.4 mg 10/12/24 09:00 10/16/24 08:43 Tamsulosin Hcl 0.4 Mg Cap PO 11/11/24 08:59 0.4 mg QAM EMPERATRIZ Administration (4) COPD (chronic obstructive pulmonary disease) COPD type: unspecified COPD Qualified Code(s): J44.9 - Chronic obstructive pulmonary disease, unspecified
--- NOTE | 2024-10-16 12:21 | Pharmacy Report ---
Pharmacy Glycemic Short Note 2 - Date of Service October 16, 2024 - Glycemic Short BSG Results (Last 24 hours): 10/15/24 10/15/24 10/16/24 16:34 19:56 07:17 POC Glucose 147 H 149 H 184 H 10/16/24 11:19 POC Glucose 129 H OUTPATIENT ANTIDIABETIC REGIMEN: * GLIPIZIDE 10 mg PO BID * Insulin Lispro (Admelog SoloStar) - unknown dose * Ozempic SC HbA1c: 8.1% on 08/29/24 ASSESSMENT: 10/16: * BSGs 016-090-470-129mg/dl the last 24h. Received 45 units of basal and 37units of bolus insulin yesterday. * Tolerating diet, other stressors stable. * Given fasting BSGs elevated the last 2 days, will increase basal to 50 units. No change to Novolog. 10/13 * Patient received a total of 101 units of insulin yesterday (40 units were basal and 61 units were bolus). * Despite BSGs trending down yesterday, they still all remained above goal. Fasting BSG was 207mg/dL this morning. Will increase lantus dose by ~10% (to 45 units q HS.) * Will tighten CR as lunch BSG still remained elevated at 207mg/dL. 10/12 * 54 y/o M admitted for acute CHF symptoms, UTI and viral respiratory infection. Patient is known to pharmacy glycemic service from recent admissions. * Based on data from recent admission, basal insulin 40 units given last night and continued for HS today. * Patient had received one dose of IV solu medrol yesterday evening. BSG trended up to 400 mg/dl early today AM. He received 14 units of insulin at that time. * BSG continued to be high above 300 mg/dl this morning. Patient is being held in the ED inpatient side. I called and requested insulin to be given this morning with breakfast but this was omitted. * Pre-lunch BSG still high at 321 mg/dl, this was covered. Expect BSGs to trend down by this evening. * Overnight checks added. PLAN FOR INPATIENT GLYCEMIC CONTROL: * Hold outpatient oral diabetes medications * Basal insulin * Lantus 50 units SQ HS * Bolus insulin * NovoLog per scale ACHS or Q6hrs while NPO. Added 00 and 04 checks * Goal Range: Low 110 mg/dL - High 140 mg/dL * Correction Factor: 20 mg/dL/unit * Nutritional / Prandial insulin per carb ratio of 1 unit per 6 grams CHO consumed
[2024-10-16] MEDS: FLUTICASONE PROPIONATE NA SPR 16 GM BTL SCH (16:12)
[2024-10-16] MEDS: DICLOFENAC SOD 1% GEL 100 GM TUBE EXT SCH (16:12)
[2024-10-16] MEDS: WARFARIN SOD 6 MG TAB PO SCH (16:14)
[2024-10-16] MEDS: LIDOCAINE 2% JELLY 5 ML TUBE EXT SCH (16:18)
[2024-10-16] MEDS: LANTUS PER UNIT CHARGE SQ SCH (20:45)
[2024-10-17 10:17] LABS: Hematocrit (blood only) 36.5 % (42.0-52.0); Hemoglobin 11.9 g/dl (14.0-18.0); Mean Corpuscular Hgb Conc 32.6 g/dL (32.0-36.0); Mean Corpuscular Volume 79.9 fL (80.0-100.0); Mean Platelet Volume 10.5 fL (9.4-12.4); Platelet Count 285 K/uL (130-400); RDW Coefficient of Variation 22.1 % (11.5-14.5); RDW Standard Deviation 62.5 fL (36.4-46.3); Red Blood Count 4.57 M/uL (4.70-6.10); White Blood Count 17.56 K/ul (4.8-10.8)
[2024-10-17 10:41] LABS: INR 1.8 (0.9-1.1); Prothrombin Time 18.7 Seconds (9.0-12.0)
[2024-10-17] MEDS: ACETAMINOPHEN 1,000 MG/100 ML VIAL IV STA (11:54)
[2024-10-17] MEDS: oxyBUTYnin chloride 5 MG TAB PO STA (12:33)
[2024-10-17] MEDS: PHENAZOPYRIDINE HCL 100 MG TAB PO SCH (13:52)
--- NOTE | 2024-10-17 15:40 | Hospitalist Progress Note ---
Date of Service October 17, 2024 Assessment & Plan (1) Acute on chronic diastolic (congestive) heart failure: (2) UTI (urinary tract infection) due to urinary indwelling catheter: (3) Viral upper respiratory infection: (4) COPD (chronic obstructive pulmonary disease): (5) Obesity hypoventilation syndrome: (6) Current use of [facility] anticoagulation: (7) Chronic indwelling Fontaine catheter: (8) Morbid obesity: (9) Neutrophilic leukocytosis: Plan Mr. Milner is a 54-year-old gentleman with past medical history significant for COPD, morbid obesity, type 2 diabetes, chronic diastolic heart failure, prior CAD/STEMI per records,hypertension, hyperlipidemia, prior PE on Coumadin, mood disorder, medication noncompliance, current active smoker, chronic indwelling fontaine catheter, prior subdural hematoma/subarachnoid hemorrhage, iron deficiency anemia, depression with anxiety, venous insufficiency, chronic pain on buprenorphine, prior MRSA/VRE who is admitted for acute decompensated heart failure. Patient responded to IV lasix, trans itioned to PO lasix. Patient with pain overall and working to improve ambultion. PT reports patient is at PLOF and to d/c home. Will encourage symptom management and perhaps OP PT/OT #congestion #postnasal drip resp panel negative supportive management start flonase #Right leg pain start Voltaren gel encourage ambulation #Urethral burning topical urojet Discussed with urology start Pyridium start oxybutynin Follow up OP #Acute on chronic heart failure with preserved EF #Chronic RBBB ECHO 08/2024 limited 2/2 habitus but gross appearance of EF normal continue imdur, metoprolol XL BID continue lasix and kcl, increased to 80 BID continue spironolactone #chronic indwelling fontaine #BPH continue finasteride #history of PE on 2.5mg Tu, Micki, 5 mg all other days as of AC OP recommendations 10/11 continue 6 mg Coumadin while inpatient INR in am #tobacco use nicotine patch #Chronic pain On buprenorphine oxycodone prn Also on gabapentin 800mg tid and Cymbalta 60mg dailly #Hypertension On beta-nasim and Imdur and diuretics #Diabetes Holding p.o. medications Insulin sliding scale We will monitor Dvt warfarin PT/OT home given PLOF discharge tomorrow Admission and Anticipated Discharge Date Admission Date: October 11, 2024 Subjective Reports of perineum pain and fontaine discomfort Reports ongoing RLE discomfort discussed follow up with pcp and ortho to establish a baseline goal for weight loss to tolerate future surgeries Physical Exam Constitutional: WD/WN, vitals as above Respiratory: normal respiratory effort, lungs clear to auscultation Cardiovascular: RRR, no murmur, no edema Gastrointestinal (Abdomen): : no erythema or lesions of glans, no skin maceration, urine clear Results & Data Results & Data Vital Signs (Past 12 Hours) Vital Signs Temp Pulse Pulse Resp BP Pulse Ox O2 Del Method 10/17/24 15:25 36.8 C 68 16 131/64 96 Nasal Cannula 10/17/24 11:50 36.8 C 67 16 124/66 95 Room Air 10/17/24 08:20 Room Air, Nasal Cannula 10/17/24 07:34 36.5 C 66 17 119/66 97 Nasal Cannula O2 Flow Rate 10/17/24 15:25 4 10/17/24 11:50 10/17/24 08:20 10/17/24 07:34 4 Laboratory Results Short CBC 10/17/24 Range/Units 09:42 WBC 17.56 H (4.8-10.8) K/ul Hgb 11.9 L (14.0-18.0) g/dl Hct 36.5 L (42.0-52.0) % Plt Count 285 (130-400) K/uL Medications Administered Home Medications Medication Instructions Recorded Confirmed Last Taken Lactobacillus acidophilus 1 1,000 mmu cells PO QAM 08/29/24 10/11/24 10/11/24 billion cell tablet albuterol sulfate 90 mcg/actuation 2 inh inhalation Q4H PRN Shortness 08/29/24 10/11/24 Unknown aerosol inhaler Of Breath Or Wheezing aspirin 81 mg tablet,delayed 81 mg PO QAM 08/29/24 10/11/24 10/11/24 release atorvastatin 80 mg tablet 80 mg PO PM 08/29/24 10/11/24 10/10/24 budesonide 0.5 mg/2 mL suspension 0.5 mg inhalation BID 08/29/24 10/11/24 10/11/24 for nebulization am buprenorphine HCl 8 mg sublingual 8 mg sublingual UD 08/29/24 10/11/24 10/11/24 tablet am only cyclobenzaprine 10 mg tablet 10 mg PO BID PRN muscle spasms 08/29/24 10/11/24 Unknown docusate sodium 100 mg capsule 100 mg PO BID 08/29/24 10/11/24 10/11/24 (Colace) am duloxetine 60 mg capsule,delayed 60 mg PO QAM 08/29/24 10/11/24 10/11/24 release famotidine 20 mg tablet 20 mg PO HS 08/29/24 10/11/24 10/10/24 ferrous sulfate 325 mg (65 mg 325 mg PO QAM 08/29/24 10/11/24 10/11/24 iron) tablet finasteride 5 mg tablet 5 mg PO QAM 08/29/24 10/11/24 10/11/24 fluticasone 250 mcg-salmeterol 50 1 inh inhalation BID 08/29/24 10/11/24 10/11/24 mcg/dose blistr powdr for am inhalation folic acid 1 mg tablet 1 mg PO QAM 08/29/24 10/11/24 10/11/24 glipizide 10 mg tablet 10 mg PO BID 08/29/24 10/11/24 10/11/24 isosorbide dinitrate 30 mg tablet 30 mg PO QAM 08/29/24 10/11/24 10/11/24 magnesium oxide 400 mg (241.3 mg 400 mg PO QAM 08/29/24 10/11/24 10/11/24 magnesium) tablet metoprolol succinate 50 mg 75 mg PO BID 08/29/24 10/11/24 10/11/24 tablet,extended release 24 hr am dose ondansetron HCl 4 mg tablet 4 mg PO TID PRN Nausea And Vomiting 08/29/2410/11 Unknown oxycodone 10 mg tablet 10 mg PO BID PRN Pain, Severe 08/29/24 10/11/24 Unknown spironolactone 25 mg tablet 25 mg PO QAM 08/29/24 10/11/24 10/11/24 tamsulosin 0.4 mg capsule 0.4 mg PO QAM 08/29/24 10/11/24 10/11/24 warfarin 4 mg tablet 4 mg PO UD 08/29/24 10/11/24 Unknown pantoprazole 40 mg tablet,delayed 40 mg PO BID #60 tabs 09/04/24 10/11/24 10/11/24 release am potassium chloride 20 mEq 20 meq PO HS #30 tabs 09/04/24 10/11/24 10/10/24 tablet,extended release(part/cryst) potassium chloride 20 mEq 40 meq (2 x 20 mEq) PO QAM #60 tabs 09/04/24 10/11/24 10/11/24 tablet,extended release(part/cryst) furosemide 40 mg tablet 40 mg PO BID 10/11/24 10/11/24 10/11/24 am dose gabapentin 800 mg tablet 800 mg PO TID 10/11/24 10/11/24 10/11/24 am furosemide 80 mg tablet 80 mg PO BID17 #60 tabs 10/15/24 Unknown guaifenesin 600 mg tablet, 1,200 mg (2 x 600 mg) PO Q12 PRN 10/15/24 Unknown extended release 12 hr (Mucinex) congestion #30 tabs Active Medications Generic Name Dose Route Start Last Admin Trade Name Freq PRN Reason Stop Dose Admin Albuterol 2 puffs 10/12/24 00:32 10/17/24 08:54 Albuterol Hfa 8 Gm Inhaler INH 11/11/24 00:31 2 puffs Q4H PRN Administration Shortness Of Breath Or Wheezing Aspirin 81 mg 10/12/24 09:00 10/17/24 08:56 Aspirin 81 Mg Ectab PO 11/11/24 08:59 81 mg QAM EMPERATRIZ Administration Atorvastatin Calcium 80 mg 10/12/24 00:32 10/16/24 20:28 Atorvastatin 40 Mg Tab PO 11/11/24 00:31 80 mg PM EMPERATRIZ Administration Budesonide 0.5 mg 10/12/24 00:45 10/17/24 07:31 Budesonide 0.5 Mg/2 Ml Vial (Pulmicort) INH 11/11/24 00:44 Not Given BIDR EMPERATRIZ Buprenorphine HCl 8 mg 10/12/24 00:32 10/17/24 09:19 Buprenorphine Hcl 8 Mg Subl SL 11/11/24 00:31 8 mg BID EMPERATRIZ Administration Buprenorphine HCl 4 mg 10/12/24 14:00 10/17/24 14:42 Buprenorphine Hcl 8 Mg Subl SL 11/11/24 13:59 4 mg 1400 EMPERATRIZ Administration Cyclobenzaprine HCl 10 mg 10/12/24 00:32 10/17/24 09:15 Cyclobenzaprine Hcl 10 Mg Tab PO 11/11/24 00:31 10 mg BID PRN Administration muscle spasms Diclofenac Sodium 2 gm 10/16/24 14:30 10/17/24 13:53 Diclofenac Sod 1% Gel 100 Gm Tube EXT 11/15/24 14:29 2 gm Q8H EMPERATRIZ Administration Protocol Docusate Sodium 100 mg 10/12/24 00:32 10/17/24 09:08 Docusate Sodium 100 Mg Cap PO 11/11/24 00:31 100 mg BID EMPERATRIZ Administration Duloxetine HCl 60 mg 10/12/24 09:00 10/17/24 08:56 Duloxetine Hcl 60 Mg Cap PO 11/11/24 08:59 60 mg QAM EMPERATRIZ Administration Famotidine 20 mg 10/12/24 00:32 10/16/24 20:37 Famotidine 20 Mg Tab PO 11/11/24 00:31 20 mg HS EMPERATRIZ Administration Ferrous Sulfate 325 mg 10/12/24 09:00 10/17/24 08:56 Ferrous Sulfate 325 Mg Tab PO 11/11/24 08:59 325 mg QAM EMPERATRIZ Administration Finasteride 5 mg 10/12/24 09:00 10/17/24 08:50 Finasteride 5 Mg Tab PO 11/11/24 08:59 5 mg QAM EMPERATRIZ Administration Fluticasone Propionate 1 sprays 10/16/24 14:30 10/17/24 08:51 Fluticasone Propionate Na Spr 16 Gm Btl NA 11/15/24 14:29 1 sprays DAILY EMPERATRIZ Administration Fluticasone/Vilanterol 1 puffs 10/12/24 09:00 10/17/24 08:54 Fluticasone/Vilanterol 200/25mcg 14 Puffs/Inhaler INH 11/11/24 08:59 1 puffs DAILY EMPERATRIZ Administration Folic Acid 1 mg 10/12/24 09:00 10/17/24 08:57 Folic Acid 1 Mg Tab PO 11/11/24 08:59 1 mg QAM EMPERATRIZ Administration Furosemide 80 mg 10/14/24 17:00 10/17/24 08:51 Furosemide 80 Mg Tab PO 11/13/24 16:59 80 mg BID17 EMPERATRIZ Administration Gabapentin 800 mg 10/12/24 00:32 10/17/24 13:52 Gabapentin 800 Mg Tab PO 11/11/24 00:31 800 mg TID EMPERATRIZ Administration Guaifenesin 1,200 mg 10/13/24 17:58 10/17/24 08:52 Guaifenesin 600 Mg Tabcr PO 11/12/24 20:59 1,200 mg Q12 PRN Administration Congestion Insulin Aspart 0 units 10/11/24 21:00 10/17/24 12:25 Insulin Aspart Per Unit Charge SC 11/10/24 20:59 9 units ACHS EMPERATRIZ Administration Insulin Glargine 50 units 10/16/24 21:00 10/16/24 20:45 Lantus Per Unit Charge SQ 11/12/24 20:59 50 units HS EMPERATRIZ Administration Isosorbide Dinitrate 30 mg 10/12/24 09:00 10/17/24 08:55 Isosorbide Dinitrate 20 Mg Tab PO 11/11/24 08:59 30 mg QAM EMPERATRIZ Administration Lactobacillus Acidophilus 625 mg 10/12/24 09:00 10/17/24 08:51 Advanced Probiotic 625 Mg Capsule PO 11/11/24 08:59 625 mg QAM EMPERATRIZ Administration Lidocaine HCl 1 ml 10/16/24 14:30 10/17/24 13:54 Lidocaine 2% Jelly 5 Ml Tube EXT 11/15/24 14:29 Not Given Q24H EMPERATRIZ Magnesium Oxide 400 mg 10/12/24 09:00 10/17/24 08:56 Magnesium Oxide 400 Mg Tab PO 11/11/24 08:59 400 mg QAM EMPERATRIZ Administration Metoprolol Succinate 75 mg 10/12/24 00:32 10/17/24 08:50 Metoprolol Succ 25mg Ext Rel Tab PO 11/11/24 00:31 75 mg BID EMPERATRIZ Administration Miscellaneous 1 each 10/12/24 08:59 10/17/24 08:50 Remove Nicoderm Patch N/A 11/11/24 08:58 1 each DAILY@0859 EMPERATRIZ Administration Nicotine 1 patch 10/11/24 21:15 10/17/24 08:54 Nicotine 21 Mg/24 Hr Tdsy TD 11/10/24 21:14 1 patch QAM EMPERATRIZ Administration Ondansetron HCl 4 mg 10/12/24 00:43 10/15/24 09:41 Ondansetron 4 Mg Od Tab PO 11/11/24 00:42 4 mg TID PRN Administration Nausea And Vomiting Oxycodone HCl 10 mg 10/12/24 11:34 10/17/24 09:15 Oxycodone Hcl Ir 5 Mg Tab (Immediate Release) PO 10/26/24 11:33 10 mg BID PRN Administration Pain, Severe Pantoprazole Sodium 40 mg 10/12/24 00:32 10/17/24 08:56 Pantoprazole 40 Mg Tab PO 11/11/24 00:31 40 mg BID EMPERATRIZ Administration Phenazopyridine HCl 100 mg 10/17/24 14:00 10/17/24 13:52 Phenazopyridine Hcl 100 Mg Tab PO 11/16/24 13:59 100 mg TID EMPERATRIZ Administration Potassium Chloride 20 meq 10/12/24 00:32 10/16/24 20:29 Potassium Chloride Crtab 20 Meq Tabcr PO 11/11/24 00:31 20 meq HS EMPERATRIZ Administration Potassium Chloride 40 meq 10/12/24 09:00 10/17/24 09:08 Potassium Chloride Crtab 20 Meq Tabcr PO 11/11/24 08:59 40 meq QAM EMPERATRIZ Administration Spironolactone 25 mg 10/12/24 09:00 10/17/24 08:52 Spironolactone 25 Mg Tab PO 11/11/24 08:59 25 mg QAM EMPERATRIZ Administration Tamsulosin HCl 0.4 mg 10/12/24 09:00 10/17/24 08:56 Tamsulosin Hcl 0.4 Mg Cap PO 11/11/24 08:59 0.4 mg QAM EMPERATRIZ Administration Warfarin Sodium 6 mg 10/16/24 16:00 10/16/24 16:14 Warfarin Sod 6 Mg Tab PO 11/15/24 15:59 6 mg DAILY@1600 EMPERATRIZ Administration (4) COPD (chronic obstructive pulmonary disease) COPD type: unspecified COPD Qualified Code(s): J44.9 - Chronic obstructive pulmonary disease, unspecified
[2024-10-18 09:24] LABS: INR 1.8 (0.9-1.1); Prothrombin Time 18.2 Seconds (9.0-12.0)
[2024-10-18 10:01] LABS: Basophils # (auto) 0.06 K/uL (0.00-0.20); Basophils % (auto) 0.4 %; Eosinophils # (auto) 0.47 K/uL (0.00-0.50); Eosinophils % (auto) 3.3 %; Hematocrit (blood only) 38.1 % (42.0-52.0); Immature Granulocytes # (auto) 0.24 K/uL (0.01-0.20); Immature Granulocytes % (auto) 1.7 %; Lymphocytes # (auto) 3.07 K/uL (1.20-3.40); Lymphocytes % (auto) 21.5 %; Mean Corpuscular Hemoglobin 25.6 pg (25.0-34.0); Mean Corpuscular Hgb Conc 31.5 g/dL (32.0-36.0); Mean Corpuscular Volume 81.4 fL (80.0-100.0); Mean Platelet Volume 10.9 fL (9.4-12.4); Monocytes % (auto) 5.6 %; Neutrophils # (auto) 9.62 K/uL (1.40-6.50); Neutrophils % (auto) 67.5 %; Platelet Count 275 K/uL (130-400); RDW Coefficient of Variation 22.4 % (11.5-14.5); RDW Standard Deviation 64.9 fL (36.4-46.3); Red Blood Count 4.68 M/uL (4.70-6.10); White Blood Count 14.26 K/ul (4.8-10.8)
[2024-10-18 10:05] LABS: BUN Creatinine Ratio 22.2 (10-20); Calcium 9.4 mg/dl (8.6-10.3); Potassium 3.7 mmol/L (3.5-5.1)
[2024-10-18 10:38] LABS: Anisocytosis Present; Ovalocytes 1+; Polychromasia 1+
--- NOTE | 2024-10-18 13:03 | Hospitalist Progress Note ---
Date of Service October 18, 2024 Assessment & Plan (1) Acute on chronic diastolic (congestive) heart failure: (2) UTI (urinary tract infection) due to urinary indwelling catheter: (3) Viral upper respiratory infection: (4) COPD (chronic obstructive pulmonary disease): (5) Obesity hypoventilation syndrome: (6) Current use of fdc anticoagulation: (7) Chronic indwelling Fontaine catheter: (8) Morbid obesity: (9) Neutrophilic leukocytosis: Plan Mr. Milner is a 54-year-old gentleman with past medical history significant for COPD, morbid obesity, type 2 diabetes, chronic diastolic heart failure, prior CAD/STEMI per records,hypertension, hyperlipidemia, prior PE on Coumadin, mood disorder, medication noncompliance, current active smoker, chronic indwelling fontaine catheter, prior subdural hematoma/subarachnoid hemorrhage, iron deficiency anemia, depression with anxiety, venous insufficiency, chronic pain on buprenorphine, prior MRSA/VRE who is admitted for acute decompensated heart failure. Patient responded to IV lasix, trans itioned to PO lasix. Patient with pain overall and working to improve ambulation. PT reports patient is at PLOF and to d/c home. Will encourage symptom management and perhaps OP PT/OT PT note from 10/13 and 10/16 reports patient at PLOF however note from 10/17 as continue pt before returning home. Discussed that patient needs to be active and continue routine exercises. Discussed with PT patient's case and noted that there is nothing further to be offered from an inpatient standpoint. Will encourage further mobility today with plans for firm noon discharge tomorrow. #congestion #postnasal drip resp panel negative supportive management start flonase #Right leg pain start Voltaren gel encourage ambulation #Urethral burning topical urojet Discussed with urology start Pyridium start oxybutynin Follow up OP #Acute on chronic heart failure with preserved EF #Chronic RBBB ECHO 08/2024 limited 2/2 habitus but gross appearance of EF normal continue imdur, metoprolol XL BID continue lasix and kcl, increased to 80 BID continue spironolactone #chronic indwelling fontaine #BPH continue finasteride #Chronic leukocytosis peripheral smear historically unrevealing last 2022, repeat ordered suspect 2/2 chronic tobacco use #history of PE on 2.5mg Tu, Micki, 5 mg all other days as of AC OP recommendations 10/11 continue 6 mg Coumadin while inpatient INR in am #tobacco use nicotine patch #Chronic pain On buprenorphine oxycodone prn Also on gabapentin 800mg tid and Cymbalta 60mg dailly #Hypertension On beta-nasim and Imdur and diuretics #Diabetes Holding p.o. medications Insulin sliding scale We will monitor Dvt warfarin PT/OT home given PLOF, write PT/OT OP script tomorrow at noon Admission and Anticipated Discharge Date Admission Date: October 11, 2024 Subjective Perineum pain improved with Pyridium/oxybutynin Patient states that his RLE is in pain limiting mobility--notably pt note changed from PLOF to likely need more sessions to get to baseline Discussed with patient that medically patient is stable for discharge and that rehab is not recommended; stated will give additional day with emphasis on mobility and planned discharge tomorrow at noon Physical Exam 2 Constitutional: WD/WN, vitals as above Respiratory: CTAB in peripherally with rhonchi cleared with cough Cardiovascular: RRR, no murmur, no edema Gastrointestinal (Abdomen): clear, slight orange hue iso pyridium Results & Data Results & Data Vital Signs (Past 12 Hours) Vital Signs Temp Pulse Resp BP Pulse Ox O2 Del Method O2 Flow Rate 10/18/24 08:03 36.9 C 72 18 101/66 92 Nasal Cannula 4 10/18/24 08:00 Nasal Cannula 2 Laboratory Results Short CBC 10/18/24 Range/Units 08:37 WBC 14.26 H (4.8-10.8) K/ul Hgb 12.0 L (14.0-18.0) g/dl Hct 38.1 L (42.0-52.0) % Plt Count 275 (130-400) K/uL BMP 10/18/24 08:37 Sodium 135 L Potassium 3.7 Chloride 96 L Carbon Dioxide 32 BUN 22 Creatinine 0.99 Glucose 204 H Calcium 9.4 Medications Administered Home Medications Medication Instructions Recorded Confirmed Last Taken Lactobacillus acidophilus 1 1,000 mmu cells PO QAM 08/29/24 10/11/24 10/11/24 billion cell tablet albuterol sulfate 90 mcg/actuation 2 inh inhalation Q4H PRN Shortness 08/29/24 10/11/24 Unknown aerosol inhaler Of Breath Or Wheezing aspirin 81 mg tablet,delayed 81 mg PO QAM 08/29/24 10/11/24 10/11/24 release atorvastatin 80 mg tablet 80 mg PO PM 08/29/24 10/11/24 10/10/24 budesonide 0.5 mg/2 mL suspension 0.5 mg inhalation BID 08/29/24 10/11/24 10/11/24 for nebulization am buprenorphine HCl 8 mg sublingual 8 mg sublingual UD 08/29/24 10/11/24 10/11/24 tablet am only cyclobenzaprine 10 mg tablet 10 mg PO BID PRN muscle spasms 08/29/24 10/11/24 Unknown docusate sodium 100 mg capsule 100 mg PO BID 08/29/24 10/11/24 10/11/24 (Colace) am duloxetine 60 mg capsule,delayed 60 mg PO QAM 08/29/24 10/11/24 10/11/24 release famotidine 20 mg tablet 20 mg PO HS 08/29/24 10/11/24 10/10/24 ferrous sulfate 325 mg (65 mg 325 mg PO QAM 08/29/24 10/11/24 10/11/24 iron) tablet finasteride 5 mg tablet 5 mg PO QAM 08/29/24 10/11/24 10/11/24 fluticasone 250 mcg-salmeterol 50 1 inh inhalation BID 08/29/24 10/11/24 10/11/24 mcg/dose blistr powdr for am inhalation folic acid 1 mg tablet 1 mg PO QAM 08/29/24 10/11/24 10/11/24 glipizide 10 mg tablet 10 mg PO BID 08/29/24 10/11/24 10/11/24 isosorbide dinitrate 30 mg tablet 30 mg PO QAM 08/29/24 10/11/24 10/11/24 magnesium oxide 400 mg (241.3 mg 400 mg PO QAM 08/29/24 10/11/24 10/11/24 magnesium) tablet metoprolol succinate 50 mg 75 mg PO BID 08/29/24 10/11/24 10/11/24 tablet,extended release 24 hr am dose ondansetron HCl 4 mg tablet 4 mg PO TID PRN Nausea And Vomiting 08/29/24 10/11/24 Unknown oxycodone 10 mg tablet 10 mg PO BID PRN Pain, Severe 08/29/24 10/11/24 Unknown spironolactone 25 mg tablet 25 mg PO QAM 08/29/24 10/11/24 10/11/24 tamsulosin 0.4 mg capsule 0.4 mg PO QAM 08/29/24 10/11/24 10/11/24 warfarin 4 mg tablet 4 mg PO UD 08/29/24 10/11/24 Unknown pantoprazole 40 mg tablet,delayed 40 mg PO BID #60 tabs 09/04/24 10/11/24 10/11/24 release am potassium chloride 20 mEq 20 meq PO HS #30 tabs 09/04/24 10/11/24 10/10/24 tablet,extended release(part/cryst) potassium chloride 20 mEq 40 meq (2 x 20 mEq) PO QAM #60 tabs 09/04/24 10/11/24 10/11/24 tablet,extended release(part/cryst) furosemide 40 mg tablet 40 mg PO BID 10/11/24 10/11/24 10/11/24 am dose gabapentin 800 mg tablet 800 mg PO TID 10/11/24 10/11/24 10/11/24 am furosemide 80 mg tablet 80 mg PO BID17 #60 tabs 10/15/24 Unknown guaifenesin 600 mg tablet, 1,200 mg (2 x 600 mg) PO Q12 PRN 10/15/24 Unknown extended release 12 hr (Mucinex) congestion #30 tabs Active Medications Generic Name Dose Route Start Last Admin Trade Name Freq PRN Reason Stop Dose Admin Albuterol 2 puffs 10/12/24 00:32 10/17/24 08:54 Albuterol Hfa 8 Gm Inhaler INH 11/11/24 00:31 2 puffs Q4H PRN Administration Shortness Of Breath Or Wheezing Aspirin 81 mg 10/12/24 09:00 10/18/24 09:04 Aspirin 81 Mg Ectab PO 11/11/24 08:59 81 mg QAM EMPERATRIZ Administration Atorvastatin Calcium 80 mg 10/12/24 00:32 10/17/24 20:21 Atorvastatin 40 Mg Tab PO 11/11/24 00:31 80 mg PM EMPERATRIZ Administration Budesonide 0.5 mg 10/12/24 00:45 10/18/24 07:16 Budesonide 0.5 Mg/2 Ml Vial (Pulmicort) INH 11/11/24 00:44 Not Given BIDR EMPERATRIZ Buprenorphine HCl 8 mg 10/12/24 00:32 10/18/24 09:25 Buprenorphine Hcl 8 Mg Subl SL 11/11/24 00:31 8 mg BID EMPERATRIZ Administration Buprenorphine HCl 4 mg 10/12/24 14:00 10/17/24 14:42 Buprenorphine Hcl 8 Mg Subl SL 11/11/24 13:59 4 mg 1400 EMPERATRIZ Administration Cyclobenzaprine HCl 10 mg 10/12/24 00:32 10/18/24 09:25 Cyclobenzaprine Hcl 10 Mg Tab PO 11/11/24 00:31 10 mg BID PRN Administration muscle spasms Diclofenac Sodium 2 gm 10/16/24 14:30 10/18/24 06:06 Diclofenac Sod 1% Gel 100 Gm Tube EXT 11/15/24 14:29 2 gm Q8H EMPERATRIZ Administration Protocol Docusate Sodium 100 mg 10/12/24 00:32 10/18/24 09:25 Docusate Sodium 100 Mg Cap PO 11/11/24 00:31 100 mg BID EMPERATRIZ Administration Duloxetine HCl 60 mg 10/12/24 09:00 10/18/24 09:06 Duloxetine Hcl 60 Mg Cap PO 11/11/24 08:59 60 mg QAM EMPERATRIZ Administration Famotidine 20 mg 10/12/24 00:32 10/17/24 20:22 Famotidine 20 Mg Tab PO 11/11/24 00:31 20 mg HS EMPERATRIZ Administration Ferrous Sulfate 325 mg 10/12/24 09:00 10/18/24 09:06 Ferrous Sulfate 325 Mg Tab PO 11/11/24 08:59 325 mg QAM EMPERATRIZ Administration Finasteride 5 mg 10/12/24 09:00 10/18/24 09:14 Finasteride 5 Mg Tab PO 11/11/24 08:59 5 mg QAM EMPERATRIZ Administration Fluticasone Propionate 1 sprays 10/16/24 14:30 10/18/24 09:12 Fluticasone Propionate Na Spr 16 Gm Btl NA 11/15/24 14:29 1 sprays DAILY EMPERATRIZ Administration Fluticasone/Vilanterol 1 puffs 10/12/24 09:00 10/18/24 09:13 Fluticasone/Vilanterol 200/25mcg 14 Puffs/Inhaler INH 11/11/24 08:59 1 puffs DAILY EMPERATRIZ Administration Folic Acid 1 mg 10/12/24 09:00 10/18/24 09:15 Folic Acid 1 Mg Tab PO 11/11/24 08:59 1 mg QAM EMPERATRIZ Administration Furosemide 80 mg 10/14/24 17:00 10/18/24 09:11 Furosemide 80 Mg Tab PO 11/13/24 16:59 80 mg BID17 EMPERATRIZ Administration Gabapentin 800 mg 10/12/24 00:32 10/18/24 09:12 Gabapentin 800 Mg Tab PO 11/11/24 00:31 800 mg TID EMPERATRIZ Administration Guaifenesin 1,200 mg 10/13/24 17:58 10/18/24 09:06 Guaifenesin 600 Mg Tabcr PO 11/12/24 20:59 1,200 mg Q12 PRN Administration Congestion Insulin Aspart 0 units 10/11/24 21:00 10/18/24 09:24 Insulin Aspart Per Unit Charge SC 11/10/24 20:59 14 units ACHS EMPERATRIZ Administration Insulin Glargine 50 units 10/16/24 21:00 10/17/24 21:25 Lantus Per Unit Charge SQ 11/12/24 20:59 50 units HS EMPERATRIZ Administration Isosorbide Dinitrate 30 mg 10/12/24 09:00 10/18/24 09:07 Isosorbide Dinitrate 20 Mg Tab PO 11/11/24 08:59 30 mg QAM EMPERATRIZ Administration Lactobacillus Acidophilus 625 mg 10/12/24 09:00 10/18/24 09:04 Advanced Probiotic 625 Mg Capsule PO 11/11/24 08:59 625 mg QAM EMPERATRIZ Administration Lidocaine HCl 1 ml 10/16/24 14:30 10/17/24 13:54 Lidocaine 2% Jelly 5 Ml Tube EXT 11/15/24 14:29 Not Given Q24H EMPERATRIZ Magnesium Oxide 400 mg 10/12/24 09:00 10/18/24 09:05 Magnesium Oxide 400 Mg Tab PO 11/11/24 08:59 400 mg QAM EMPERATRIZ Administration Metoprolol Succinate 75 mg 10/12/24 00:32 10/18/24 09:04 Metoprolol Succ 25mg Ext Rel Tab PO 11/11/24 00:31 75 mg BID EMPERATRIZ Administration Miscellaneous 1 each 10/12/24 08:59 10/18/24 09:13 Remove Nicoderm Patch N/A 11/11/24 08:58 1 each DAILY@0859 EMPERATRIZ Administration Nicotine 1 patch 10/11/24 21:15 10/18/24 09:03 Nicotine 21 Mg/24 Hr Tdsy TD 11/10/24 21:14 1 patch QAM EMPERATRIZ Administration Ondansetron HCl 4 mg 10/12/24 00:43 10/18/24 09:01 Ondansetron 4 Mg Od Tab PO 11/11/24 00:42 4 mg TID PRN Administration Nausea And Vomiting Oxycodone HCl 10 mg 10/12/24 11:34 10/18/24 09:30 Oxycodone Hcl Ir 5 Mg Tab (Immediate Release) PO 10/26/24 11:33 10 mg BID PRN Administration Pain, Severe Pantoprazole Sodium 40 mg 10/12/24 00:32 10/18/24 09:05 Pantoprazole 40 Mg Tab PO 11/11/24 00:31 40 mg BID EMPERATRIZ Administration Phenazopyridine HCl 100 mg 10/17/24 14:00 10/18/24 09:14 Phenazopyridine Hcl 100 Mg Tab PO 11/16/24 13:59 100 mg TID EMPERATRIZ Administration Potassium Chloride 20 meq 10/12/24 00:32 10/17/24 20:25 Potassium Chloride Crtab 20 Meq Tabcr PO 11/11/24 00:31 20 meq HS EMPERATRIZ Administration Potassium Chloride 40 meq 10/12/24 09:00 10/18/24 09:25 Potassium Chloride Crtab 20 Meq Tabcr PO 11/11/24 08:59 40 meq QAM EMPERATRIZ Administration Spironolactone 25 mg 10/12/24 09:00 10/18/24 09:02 Spironolactone 25 Mg Tab PO 11/11/24 08:59 25 mg QAM EMPERATRIZ Administration Tamsulosin HCl 0.4 mg 10/12/24 09:00 10/18/24 09:07 Tamsulosin Hcl 0.4 Mg Cap PO 11/11/24 08:59 0.4 mg QAM EMPERATRIZ Administration Warfarin Sodium 6 mg 10/16/24 16:00 10/17/24 17:25 Warfarin Sod 6 Mg Tab PO 11/15/24 15:59 6 mg DAILY@1600 EMPERATRIZ Administration (4) COPD (chronic obstructive pulmonary disease) COPD type: unspecified COPD Qualified Code(s): J44.9 - Chronic obstructive pulmonary disease, unspecified
[2024-10-18] MEDS: ACETAMINOPHEN 1,000 MG/100 ML VIAL IV STA (13:15)
[2024-10-18] MEDS: LANTUS PER UNIT CHARGE SQ SCH (21:12)
[2024-10-19 06:52] LABS: INR 1.9 (0.9-1.1); Prothrombin Time 19.7 Seconds (9.0-12.0)
--- NOTE | 2024-10-19 09:04 | Discharge Summary ---
Discharge Summary Date of Service October 19, 2024 Principal Dx & Hospital Course #1 = Principal Diagnosis (1) Acute on chronic diastolic (congestive) heart failure: (2) UTI (urinary tract infection) due to urinary indwelling catheter: (3) Viral upper respiratory infection: (4) COPD (chronic obstructive pulmonary disease): (5) Obesity hypoventilation syndrome: (6) Current use of custodial anticoagulation: (7) Chronic indwelling Lloyd catheter: (8) Morbid obesity: (9) Neutrophilic leukocytosis: Plan Patient presented to the emergency room with multiple complaints including symptoms associated with upper respiratory viral infection, possible catheter associated UTI and 30 pound weight gain and edema. Patient report he already taken some Zithromax at home for a day or 2 prior to coming in. Patient was admitted to the hospital for decompensated heart failure. He was diuresed with IV Lasix and responded well. His edema and shortness of breath associated with his decompensated heart failure resolved. He was treated for his URI symptoms with antitussives and mucolytics. The patient's electrolytes and renal function were monitored closely during his hospitalization and stabilized. He was transition to oral diuretics and continue to tolerate this well. Blood and urine cultures were monitored. There was no growth in blood culture or urine culture. Patient was treated with antibiotics to complete a course of therapy for suspected catheter associated UTI. Suspect urine culture may be negative due to the fact that he started on some antibiotics outpatient. Patient also had throat culture that did not show any significant growth. Patient has chronic issues with ambulation. He was seen by therapy. Overall therapy assessment was that he was at his prior level of functioning. He is at his baseline oxygen requirements. Patient was interested in some rehab. Case management was involved in his care. Unfortunately not a candidate for any type of skilled rehab. Also patient had unfortunately burned some his bridges with home health agencies and unable to find a health agency that was willing to work with him at home. The patient was given multiple days here in the hospital to recover and improve his ambulation. He had declined physical therapy, per their notes on 10/18/2024. It was made quite clear to the patient that he had improved and no longer needed hospital, acute level care. He reports that he is doing his exercises on his own. He was informed that he will be discharged today. Anticipate based on conversation that patient will appeal the discharge. Notes For Next Care Provider Consider outpatient hematology consultation for chronic leukocytosis Medication Changes From Visit Lasix dose increased Admission HPI Per Admitting Provider History obtained from interview with the patient and chart review. Past medical history of COPD, morbid obesity, type 2 diabetes, chronic diastolic heart failure,,hypertension, hyperlipidemia, history of PE on Coumadin, mood disorder, current active smoker,chronic indwelling Lloyd catheter, history of subdural hematoma, history of subarachnoid hemorrhage, history of iron deficiency anemia, depression with anxiety, venous insufficiency, Chronic pain on buprenorphine. Last admission in August 2024 with coffee-ground emesis; evaluated by GI and is started on Protonix 40 mg twice daily. Patient presents to the hospital with multiple complaints. He reports that he has sore throat, congestion for last 3 to 4 days along with shortness of breath, increased bilateral lower extremity swelling and periods of confusion. Reports weight gain of 30 pounds since admission He denies fever, chills, chest pain, abdominal pain, new joint pain or rash. He has some scratch herrera on his right thigh from his dog. Lloyd catheter has not been exchanged since last admission( 08/31/2024. It was exchanged in the ED On presentation to the ED, he was normotensive, afebrile and saturating well on room air. CBC remarkable for leukocytosis, BMP within normal limits. Mildly elevated BNP to 177; elevated compared to August 2024. Respiratory viral panel negative along with group A strep. Chest x-ray reviewed shows pulm congestion. Patient was referred for admission. Admission Exam Per Admitting Provider See H&P Discharge Exam Constitutional: Alert, nontoxic, no acute distress, morbidly obese HEENT: Mucous membranes moist. Lungs: Clear to auscultation, decreased, CV: S1-S2, regular Abdomen: Soft, nontender, nondistended Extremities: Edema lower extremities significantly improved, skin loose and wrinkly Neuro: No focal deficits Musculoskeletal: Chronic right lower extremity pain and dysfunction Psych: Cooperative, normal mood Updated Medication List Medication Instructions Recorded Confirmed Type Lactobacillus acidophilus 1 1,000 mmu cells PO QAM 08/29/24 10/11/24 History billion cell tablet albuterol sulfate 90 mcg/actuation 2 inh inhalation Q4H PRN Shortness 08/29/24 10/11/24 History aerosol inhaler Of Breath Or Wheezing aspirin 81 mg tablet,delayed 81 mg PO QAM 08/29/24 10/11/24 History release atorvastatin 80 mg tablet 80 mg PO PM 08/29/24 10/11/24 History budesonide 0.5 mg/2 mL suspension 0.5 mg inhalation BID 08/29/24 10/11/24 History for nebulization buprenorphine HCl 8 mg sublingual 8 mg sublingual UD 08/29/24 10/11/24 History tablet cyclobenzaprine 10 mg tablet 10 mg PO BID PRN muscle spasms 08/29/24 10/11/24 History docusate sodium 100 mg capsule 100 mg PO BID 08/29/24 10/11/24 History (Colace) duloxetine 60 mg capsule,delayed 60 mg PO QAM 08/29/24 10/11/24 History release famotidine 20 mg tablet 20 mg PO HS 08/29/24 10/11/24 History ferrous sulfate 325 mg (65 mg 325 mg PO QAM 08/29/24 10/11/24 History iron) tablet finasteride 5 mg tablet 5 mg PO QAM 08/29/24 10/11/24 History fluticasone 250 mcg-salmeterol 50 1 inh inhalation BID 08/29/24 10/11/24 History mcg/dose blistr powdr for inhalation folic acid 1 mg tablet 1 mg PO QAM 08/29/24 10/11/24 History glipizide 10 mg tablet 10 mg PO BID 08/29/24 10/11/24 History isosorbide dinitrate 30 mg tablet 30 mg PO QAM 08/29/24 10/11/24 History magnesium oxide 400 mg (241.3 mg 400 mg PO QAM 08/29/24 10/11/24 History magnesium) tablet metoprolol succinate 50 mg 75 mg PO BID 08/29/24 10/11/24 History tablet,extended release 24 hr ondansetron HCl 4 mg tablet 4 mg PO TID PRN Nausea And Vomiting 08/29/24 10/11/24 History oxycodone 10 mg tablet 10 mg PO BID PRN Pain, Severe 08/29/24 10/11/24 History spironolactone 25 mg tablet 25 mg PO QAM 08/29/24 10/11/24 History tamsulosin 0.4 mg capsule 0.4 mg PO QAM 08/29/24 10/11/24 History pantoprazole 40 mg tablet,delayed 40 mg PO BID #60 tabs 09/04/24 10/11/24 Rx release potassium chloride 20 mEq 20 meq PO HS #30 tabs 09/04/24 10/11/24 Rx tablet,extended release(part/cryst) potassium chloride 20 mEq 40 meq (2 x 20 mEq) PO QAM #60 tabs 09/04/24 10/11/24 Rx tablet,extended release(part/cryst) furosemide 40 mg tablet 40 mg PO BID 10/11/24 10/11/24 History gabapentin 800 mg tablet 800 mg PO TID 10/11/24 10/11/24 History furosemide 80 mg tablet 80 mg PO BID17 #60 tabs 10/15/24 Rx guaifenesin 600 mg tablet, 1,200 mg (2 x 600 mg) PO Q12 PRN 10/15/24 Rx extended release 12 hr (Mucinex) congestion #30 tabs warfarin 4 mg tablet 4 mg PO UD #30 tabs 10/19/24 Rx Hospital Stay Data Consultations 10/11/24 19:29 ED Decision to Admit Stat Diagnostic Imagining Performed 10/11/24 21:02 CT head/brain wo con Stat Reviewed imaging, laboratory and diagnostic studies. Pertinent findings as below. INR 1.9 WBCs 14.2, WBCs have been chronically elevated, suspect may be chronic inflammatory response from his Lloyd catheter Hemoglobin 12.0 Electrolytes stable Creatinine 0.99 Glucoses overall fair control Urine culture no growth Blood cultures no growth Throat culture no growth Respiratory viral panel negative Pending Results Patient Have Any Pending Studies at Discharge: No Discharge Instructions Given to Patient (Per Discharging Provider) Call 911 and go to the Emergency Room if: * You have tightness or pain in your chest that does not go away with rest or Nitroglycerin * You are very short of breath even with rest Call your doctor if any of the following symptoms or problems start or get worse: * Shortness of breath or difficulty breathing * Wake up at night short of breath * Chest pain * Cough * Swelling of your hands, fee, or legs * More fatigued or tired with your normal activity * Palpitations - sudden fast heart beats WEIGHT * Weigh yourself every morning after using the bathroom. * Use the same scale. * Wear the same amount of clothing. * Write your weight down on your chart. * Call your doctor if you gain more than 2-3 pounds in 1-2 days. MEDICATIONS * Use this discharge instruction sheet for instructions. * Take your medications at the time your doctor ordered. * Do not skip a dose of your medicines. * If you miss a dose of medicine, take as soon as possible, but DO NOT DOUBLE A DOSE. * Read your medicine information when you get home. * Know all of the side effects of your medicine. * Call your doctor's office if you have any side effects. * Be sure all of your doctors know what medicine and herbs you take (including cold, flu, and herbal medicine). * Pain Medicine: If you do not get relief from your pain, please call your doctor for help. Take the following with you to your follow-up doctor appointments: * Weight Chart * Medication List * List of questions Do not drink excessive alcohol, beer or wine. Total Time Total Time Spent Total Time Spent (In Minutes): 36
[2024-10-19] MEDS: WARFARIN SOD 5 MG TAB PO SCH (17:21)
--- NOTE | 2024-10-20 12:24 | Hospitalist Progress Note ---
Date of Service October 20, 2024 Assessment & Plan (1) Acute on chronic diastolic (congestive) heart failure: (2) UTI (urinary tract infection) due to urinary indwelling catheter: (3) Viral upper respiratory infection: (4) COPD (chronic obstructive pulmonary disease): (5) Obesity hypoventilation syndrome: (6) Current use of senior living anticoagulation: (7) Chronic indwelling Lloyd catheter: (8) Morbid obesity: (9) Neutrophilic leukocytosis: Plan Patient has significantly improved from the time of his admission. He is at his baseline compensated state. Continue current medical regimen Continue to encourage mobility Explained to patient that there is no indication for IV Tylenol in someone who is taking pills orally and eating normally. Awaiting appeal process response through Medicare Admission and Anticipated Discharge Date Admission Date: October 11, 2024 Subjective No acute issues overnight. Patient had asked for IV Tylenol a few times yesterday. Patient reports that he is trying to do more ambulating in his room. Patient states that he will go home tomorrow whether we hear from Medicare or not. Physical Exam Physical Exam: Constitutional: Alert, in bed, morbidly obese, nontoxic, no acute distress Lungs: No tachypnea, no respiratory distress i CV: Regular Abdomen: Soft, chronic Lloyd catheter Extremities: Significantly decreased edema from admission Psych: Cooperative, normal mood Results & Data Results & Data Vital Signs (Past 12 Hours) Vital Signs Temp Pulse Resp BP Pulse Ox O2 Del Method 10/20/24 07:09 36.4 C L 65 18 111/75 93 Room Air (4) COPD (chronic obstructive pulmonary disease) COPD type: unspecified COPD Qualified Code(s): J44.9 - Chronic obstructive pulmonary disease, unspecified
--- NOTE | 2024-10-20 16:05 | Pharmacy Report ---
Pharmacy Glycemic Short Note 2 - Date of Service October 20, 2024 - Glycemic Short BSG Results (Last 24 hours): 10/19/24 10/19/24 10/20/24 16:43 20:18 07:54 POC Glucose 186 H 173 H 158 H 10/20/24 11:52 POC Glucose 157 H OUTPATIENT ANTIDIABETIC REGIMEN: * GLIPIZIDE 10 mg PO BID * Insulin Lispro (Admelog SoloStar) - unknown dose * Ozempic SC * HbA1c: 8.1% on 08/29/24 ASSESSMENT: 10/20: * BSGs remain stable on current regimen. * No changes required at this time. 10/16: * BSGs [phone]/dl the last 24h. Received 45 units of basal and 37units of bolus insulin yesterday. * Tolerating diet, other stressors stable. * Given fasting BSGs elevated the last 2 days, will increase basal to 50 units. No change to Novolog. 10/13 * Patient received a total of 101 units of insulin yesterday (40 units were basal and 61 units were bolus). * Despite BSGs trending down yesterday, they still all remained above goal. Fasting BSG was 207mg/dL this morning. Will increase lantus dose by ~10% (to 45 units q HS.) * Will tighten CR as lunch BSG still remained elevated at 207mg/dL. 10/12 * 54 y/o M admitted for acute CHF symptoms, UTI and viral respiratory infection. Patient is known to pharmacy glycemic service from recent admissions. * Based on data from recent admission, basal insulin 40 units given last night and continued for HS today. * Patient had received one dose of IV solu medrol yesterday evening. BSG trended up to 400 mg/dl early today AM. He received 14 units of insulin at that time. * BSG continued to be high above 300 mg/dl this morning. Patient is being held in the ED inpatient side. I called and requested insulin to be given this morning with breakfast but this was omitted. * Pre-lunch BSG still high at 321 mg/dl, this was covered. Expect BSGs to trend down by this evening. * Overnight checks added. PLAN FOR INPATIENT GLYCEMIC CONTROL: * Hold outpatient oral diabetes medications * Basal insulin * Lantus 50 units SQ HS * Bolus insulin * NovoLog per scale ACHS or Q6hrs while NPO. Added 00 and 04 checks * Goal Range: Low 110 mg/dL - High 140 mg/dL * Correction Factor: 20 mg/dL/unit * Nutritional / Prandial insulin per carb ratio of 1 unit per 6 grams CHO consumed
[2024-10-20] MEDS: BUDESONIDE 0.5 MG/2 ML VIAL (PULMICORT) INH SCH (20:19)
[2024-10-20 20:21] VITALS: RESP 18
[2024-10-21 07:16] VITALS: BP 130/76; TEMP 98.1; O2SAT 93
[2024-10-21 10:25] VITALS: PULSE 72
[2024-10-21] MEDS ORDERED: LANTUS PER UNIT CHARGE SQ SCH (21:00)
== END 2024-10-21 11:52 | disposition home or self-care (01) | DRG 291 ==
LOC: ED 17:45 → SUATTDRO 20:22 → EDINP 10-12 → 2W 10-12 19:57 → 3W 10-14 17:13

== ENCOUNTER 2024-12-04 14:59 | Observation (INO) ==
[2024-12-04] MEDS: oxyCODONE HCL IR 5 MG TAB (IMMEDIATE RELEASE) PO STA (15:41)
--- NOTE | 2024-12-04 15:44 | Emergency Department Note ---
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 Dose: Infused Documented By: Admin: 12/04/24 17:41 Dose: 100 mls/hr Documented By: ASW Insulin Aspart (Insulin Aspart Per Unit Charge) 0 units SC ONE STA Stop: 12/04/24 18:41 Last Admin: 12/04/24 19:11 Dose: 2 units Documented By: EMB Co-signed By: CHIP Oxycodone HCl (Oxycodone Hcl Ir 5 Mg Tab (Immediate Release)) 10 mg PO NOW STA Stop: 12/04/24 15:32 Last Admin: 12/04/24 15:41 Dose: 10 mg Documented By: ASW Imaging Data Radiologist's Impression: Chest X-Ray 12/04/24 15:30 EXAM: XR chest 1V portable CLINICAL HISTORY: Chest pain, nonspecific TECHNIQUE: An X-ray image of the chest is obtained in AP projection. COMPARISON: 10/11/2024 [facility] FINDINGS: Pulmonary Parenchyma: Lungs are clear bilaterally. No evidence of consolidation, collapse, or focal opacities. No pulmonary nodules are identified. No pleural effusion. Heart and Mediastinum: Mild cardiomegaly, with congested hilar regions. An implantable loop recorder is noted. Bony Thorax: Old left calvicular fracture. Soft Tissues: Soft tissues overlying the chest wall are unremarkable. IMPRESSION: 1. No acute cardiopulmonary abnormality. 2. No significant change since the last study. 3. Old left clavicular fracture. Electronically signed by Carter Gu 12-04-2024 5:28 PM Pelvis X-Ray 12/04/24 15:31 EXAM: XR pelvis 1-2V routine CLINICAL HISTORY: Pain, fall TECHNIQUE: X-ray images of the pelvis were obtained in anteroposterior (AP) projection. COMPARISON: No prior studies available for comparison. FINDINGS: Hip Joints: No defintie osseous fractures. No subluxation or dislocation. Acetabulum: Acetabular structures appear normal and intact. No signs of acetabular fracture or dysplasia. Symphysis Pubis: Symphysis pubis is normal and intact. No evidence of separation or widening. A urinary catheter is noted. IMPRESSION: No definite osseous fractures or dislocation. Disclaimer: A subtle bone abnormality or fracture may not be readily apparent on X-rays, thus clinical correlation and further imaging including follow-up CT, MRI, or follow-up X-rays are advised as needed. Electronically signed by Carter Gu 12-04-2024 5:28 PM Discharge Plan Visit Data Chief Complaint: Chest Pain ED Provider: Stan Aguero Discharge Problem: Acute UTI, Chest pain, Hypokalemia Patient Disposition: Being Evaluated by Hospitalist Forms Stand Alone Forms: [facility] Prescriptions Prescriptions: No Action gabapentin 800 mg tablet 800 mg PO TID guaifenesin [Mucinex] 600 mg Tablet Extended Release 12hr 1,200 mg PO Q12 PRN (Reason: congestion) Qty: 30 0RF warfarin 4 mg tablet 4 mg PO UD Qty: 30 0RF Rx Instructions: per pt, and he thinks 2.5mg; rest of days are 5mg? pt wasn't real clear on his dosing schedule. Last filled 10/19 30 day supply insulin glargine-yfgn [Semglee(insulin glarg-yfgn)Pen] 100 unit/mL (3 mL) insulin pen 50 unit SUBCUT UD Rx Instructions: per pt, he does sort of a sliding scale. last filled 11/02 30 day supply potassium chloride 20 mEq tablet,ER particles/crystals 40 meq PO UD Rx Instructions: no fill history for 40 meq po qam. Fill history date 10/12 90 day supply has directions of 20 meq po bid potassium chloride 20 mEq tablet,ER particles/crystals 20 meq PO UD Rx Instructions: 20 meq po hs. Fill history date 10/12 90 day supply has directions of 20 meq po bid furosemide 80 mg tablet 40 mg PO BID17 cyclobenzaprine 10 mg tablet 10 mg PO BID PRN (Reason: muscle spasms) fluticasone propion-salmeterol 250-50 mcg/dose blister with device 1 inh INHALATION BID atorvastatin 80 mg tablet 80 mg PO PM metoprolol succinate 50 mg tablet extended release 24 hr 75 mg PO BID ondansetron HCl 4 mg tablet 4 mg PO TID PRN (Reason: Nausea And Vomiting) glipizide 10 mg tablet 10 mg PO BID Rx Instructions: one tab bid 30minutes before meals spironolactone 25 mg tablet 25 mg PO QAM isosorbide dinitrate 30 mg tablet 30 mg PO UD Rx Instructions: 30 mg po qam. last filled 10/04 30 day supply famotidine 20 mg tablet 20 mg PO HS magnesium oxide 400 mg (241.3 mg magnesium) tablet 400 mg PO QAM ferrous sulfate 325 mg (65 mg iron) tablet 325 mg PO QAM budesonide 0.5 mg/2 mL suspension for nebulization 0.5 mg inhalation UD Rx Instructions: 0.5 mg inhalation bid. No fill history available folic acid 1 mg tablet 1 mg PO UD Rx Instructions: 1 mg po qam. last filled 08/10 90 day supply albuterol sulfate 90 mcg/actuation HFA aerosol inhaler 2 inh INHALATION Q4H PRN (Reason: Shortness Of Breath Or Wheezing) finasteride 5 mg tablet 5 mg PO QAM buprenorphine HCl 8 mg tablet, sublingual 8 mg SUBLINGUAL UD Rx Instructions: (take 8mg in the morning,at 1400 take 4 mg then at night take 8mg) duloxetine 60 mg capsule,delayed release(DR/EC) 60 mg PO QAM tamsulosin 0.4 mg capsule 0.4 mg PO UD Rx Instructions: 0.4 mg po qam. No fill history available, per pt he's had no changes. oxycodone 10 mg tablet 10 mg PO BID PRN (Reason: Pain, Severe) aspirin 81 mg Tablet,Delayed Release (Dr/Ec) 81 mg PO QAM docusate sodium [Colace] 100 mg Capsule 100 mg PO BID Lactobacillus acidophilus 1 billion cell Tablet 1,000 mmu cells PO QAM pantoprazole 40 mg Tablet,Delayed Release (Dr/Ec) 40 mg PO BID Qty: 60 0RF Referrals Referrals: PCP,NO [Primary Care Provider] -
[2024-12-04 15:50] LABS: Basophils # (auto) 0.11 K/uL (0.00-0.20); Basophils % (auto) 0.5 %; Eosinophils % (auto) 1.9 %; Hematocrit (blood only) 40.9 % (42.0-52.0); Hemoglobin 13.7 g/dl (14.0-18.0); Immature Granulocytes # (auto) 0.14 K/uL (0.01-0.20); Immature Granulocytes % (auto) 0.7 %; Lymphocytes # (auto) 3.99 K/uL (1.20-3.40); Lymphocytes % (auto) 18.8 %; Mean Corpuscular Hemoglobin 26.4 pg (25.0-34.0); Mean Corpuscular Hgb Conc 33.5 g/dL (32.0-36.0); Mean Corpuscular Volume 78.8 fL (80.0-100.0); Mean Platelet Volume 11.1 fL (9.4-12.4); Monocytes # (auto) 1.28 K/uL (0.11-0.59); Neutrophils # (auto) 15.27 K/uL (1.40-6.50); Neutrophils % (auto) 72.1 %; Platelet Count 264 K/uL (130-400); RDW Coefficient of Variation 18.3 % (11.5-14.5); RDW Standard Deviation 50.7 fL (36.4-46.3); Red Blood Count 5.19 M/uL (4.70-6.10); White Blood Count 21.19 K/ul (4.8-10.8)
[2024-12-04 15:56] LABS: HCO3 VBG 40 mmol/L; Oxygen Saturation VBG 88.6 %; PCO2 VBG 52 mmHg (38-50); PO2 VBG 55 mmHg; pH VBG 7.49 (7.36-7.41)
[2024-12-04 16:07] LABS: Albumin Level 3.9 gm/dl (3.4-5.0); Anion Gap 12 (3-11); Bilirubin,Total 0.8 mg/dl (0.2-1.0); Calcium 9.6 mg/dl (8.6-10.3); Carbon Dioxide 36 mmol/L (21-32); Chloride 88 mmol/L (98-107); Potassium 2.6 mmol/L (3.5-5.1); Sodium 136 mmol/L (136-145)
[2024-12-04 16:13] LABS: Alanine Aminotransferase 21 U/L (7-52); Albumin Globulin Ratio 1.1 (0.9-2); Alkaline Phosphatase 133 U/L (34-104); Aspartate Aminotransferase 20 U/L (13-39); BUN Creatinine Ratio 18.5 (10-20); Blood Urea Nitrogen 29 mg/dl (6-23); Globulin 3.5 gm/dl (2.5-4.0); Glucose 182 mg/dl (70-99(Fasting)); Lipase 19 U/L (11-82); Total Protein 7.4 gm/dl (6.0-8.3)
[2024-12-04 16:18] LABS: Amorphous Sediment Urine Present (None Prsent); Appearance Urine Cloudy (Clear); Bacteria Urine Automated 4+ (None Seen); Bilirubin Urine Negative (Negative); Blood Urine 2+ (Negative); Cast Urine Automated >20 /lpf (0-2); Color Urine Yellow; Glucose Urine UA Negative (Negative); Ketones Urine Negative (Negative); Leukocyte Esterase Urine 2+ (Negative); Nitrite Urine Positive (Negative); Protein Urine 1+ (Negative); RBC Urine Automated >20 /hpf (0-2); Specific Gravity Urine 1.013 (1.000-1.030); Urobilinogen Urine Negative (Negative); WBC Urine Automated >50 /hpf (0-5); pH Urine 6.5 (4.5-7.5)
[2024-12-04 16:31] LABS: INR 3.5 (0.9-1.1); Partial Thromboplastin Ratio 1.7; Partial Thromboplastin Time 47 Seconds (21-31); Prothrombin Time 34.1 Seconds (9.0-12.0)
[2024-12-04] MEDS: SODIUM CHLORIDE 0.9% 500 ML IV ONE (16:58)
[2024-12-04] MEDS: cefTRIAXone SODIUM 2,000 MG/50 ML BAG IV STA (16:58)
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
--- NOTE | 2024-12-04 17:28 | XRay Report ---
EXAM: XR pelvis 1-2V routine CLINICAL HISTORY: Pain, fall TECHNIQUE: X-ray images of the pelvis were obtained in anteroposterior (AP) projection. COMPARISON: No prior studies available for comparison. FINDINGS: Hip Joints: No defintie osseous fractures. No subluxation or dislocation. Acetabulum: Acetabular structures appear normal and intact. No signs of acetabular fracture or dysplasia. Symphysis Pubis: Symphysis pubis is normal and intact. No evidence of separation or widening. A urinary catheter is noted. IMPRESSION: No definite osseous fractures or dislocation. Disclaimer: A subtle bone abnormality or fracture may not be readily apparent on X-rays, thus clinical correlation and further imaging including follow-up CT, MRI, or follow-up X-rays are advised as needed. Electronically signed by Carter Gu 12-04-2024 5:28 PM
--- NOTE | 2024-12-04 17:30 | XRay Report ---
EXAM: XR chest 1V portable CLINICAL HISTORY: Chest pain, nonspecific TECHNIQUE: An X-ray image of the chest is obtained in AP projection. COMPARISON: 10/11/2024 CR FINDINGS: Pulmonary Parenchyma: Lungs are clear bilaterally. No evidence of consolidation, collapse, or focal opacities. No pulmonary nodules are identified. No pleural effusion. Heart and Mediastinum: Mild cardiomegaly, with congested hilar regions. An implantable loop recorder is noted. Bony Thorax: Old left calvicular fracture. Soft Tissues: Soft tissues overlying the chest wall are unremarkable. IMPRESSION: 1. No acute cardiopulmonary abnormality. 2. No significant change since the last study. 3. Old left clavicular fracture. Electronically signed by Carter Gu 12-04-2024 5:28 PM
[2024-12-04] MEDS: POTASSIUM CHLORIDE / WTR 10 MEQ/100 ML PLCT IV ONE (17:41)
[2024-12-04] MEDS ORDERED: DEXTROSE 50% 50 ML SYRINGE IV PRN (18:14)
[2024-12-04] MEDS ORDERED: GLUCOSE 10 TAB/TUBE PO PRN (18:14)
[2024-12-04] MEDS ORDERED: GLUCOSE 40% GEL 15 GM TUBE PO PRN (18:14)
[2024-12-04] MEDS ORDERED: CARBOHYDRATES FOR HYPOGLYCEMIA PO PRN (18:14)
[2024-12-04] MEDS ORDERED: PHARMACY GLYCEMIC MGMT CONSULT PRN (18:14)
[2024-12-04] MEDS ORDERED: GLUCAGON FOR INJ 1 MG VIAL SQ PRN (18:14)
[2024-12-04 18:17] LABS: Troponin I High Sensitivity 7.4 pg/ml (0-20)
[2024-12-04] MEDS: INSULIN ASPART PER UNIT CHARGE SC STA (19:11)
[2024-12-04] MEDS: LACTATED RINGER'S 500 ML IV ONE (21:52)
[2024-12-04] MEDS ORDERED: VANCOMYCIN CONSULT ACTIVE PRN (22:11)
[2024-12-04] MEDS ORDERED: NON-FORMULARY MEDICATION (Insulin Glargine-Yfgn [Semglee(Insulin Glarg-Yfgn)Pen] 100 unit/ SQ SCH (22:13)
[2024-12-04] MEDS ORDERED: ALBUTEROL HFA 8 GM INHALER INH PRN (22:13)
[2024-12-04] MEDS: VANCOMYCIN HCL 2,500 MG in SODIUM CHLORIDE 0.9% 500 ML IV ONE (22:15)
[2024-12-04 22:35] LABS: Magnesium 1.6 mg/dl (1.7-2.4)
[2024-12-04] MEDS: Patient's HEIGHT &/or WEIGHT Needed STA (23:17)
[2024-12-04] MEDS: ERTAPENEM 1000MG 1,000 MG/10 ML SYR IV SCH (23:18)
[2024-12-04] MEDS: INSULIN ASPART PER UNIT CHARGE SC SCH (23:18)
[2024-12-04] MEDS: LANTUS PER UNIT CHARGE SQ SCH (23:19)
[2024-12-04] MEDS: ATORVASTATIN 40 MG TAB PO SCH (23:20)
[2024-12-04] MEDS: POTASSIUM CHLORIDE CRTAB 20 MEQ TABCR PO STA (23:20)
[2024-12-04] MEDS: GABAPENTIN 800 MG TAB PO SCH (23:21)
[2024-12-04] MEDS: METOPROLOL SUCC 25MG EXT REL TAB PO SCH (23:21)
[2024-12-04] MEDS: PANTOprazole 40 MG TAB PO SCH (23:22)
[2024-12-04] MEDS: FLUTICASONE/VILANTEROL 100/25MCG 14 PUFFS/INHALER INH SCH (23:22)
[2024-12-04] MEDS: buprenorphine HCL 8 MG SUBL SL SCH (23:30)
[2024-12-04] MEDS: POTASSIUM CHLORIDE / WTR 10 MEQ/100 ML PLCT IV SCH (23:30)
[2024-12-04] MEDS: MELATONIN 3 MG TAB PO PRN (23:30)
[2024-12-04] MEDS: oxyCODONE HCL IR 5 MG TAB (IMMEDIATE RELEASE) PO PRN (23:31)
[2024-12-04] MEDS: BUDESONIDE 0.5 MG/2 ML VIAL (PULMICORT) INH SCH (23:36)
--- OUTSIDE RECORDS SUMMARY | 2024-12-05 00:42 | External Medical Summary ---
Author Name Unknown Address Unknown Organization [id number]:[facility] [address] [place] [id number] Laboratory Report Ordering Provider Test Date Status ABATULIO 11/28/2024 07:57:00 Final Standing order for pt/inr. < br/>Please draw pt/inr every 1 to 4 weeks as requested
Results to [facility]

Warfarin Therapy
INR: 2.0-3.0 conventional anticoagulation
INR: 2.5-3.5 high intensity anticoagulation Observation Date Value Abnormality Reference (Units ) Status PT 11/28/2024 07:57:00 21.2 Above high normal 11 .6-15.2 (seconds) Final INR 11/28/2024 07:57:00 1.8 Above high normal 0. 8-1.2 Final Performing Location [facility] [address] [place] [id number]
--- OUTSIDE RECORDS SUMMARY | 2024-12-05 00:42 | External Medical Summary | Summary of Care ---
Author Name Unknown Organization [facility] Address [address] [place] [address] Phone [phone] Care Team Providers Care Administrative Services Specialist Name Role Phone Kehinde Mc MD Primary Care Provider [phone] Reason for Visit * Reason Onset Date Comments Medication Refill 11/28/2024 Encounter Details Date Type Department Care Team (Late st Contact Info) Description 11/28/[address] [facility] [address] [facility] [place] [address] Kehinde Mc MD [address] [place], [place] [id number] Chronic pain of right knee Allergies Active Allergy Reactions Criticality Noted Date [...] as of this encounter (statuses as of 12/04/2024) Medications polyethylene glycol 3350 (MIRALAX) 255 gram [...] 1 Tablet before bedtime. Active nystatin (NYSTOP) 679231 UNIT/GM powderIndications: Cutaneous candidiasis Apply topically to affected area 3 times a day. 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 30 Tablet 11 Active NovoLOG FlexPen 100 UNIT/ML Subcutaneous Solution Pen-injector (insulin aspart) Inject under the skin 1 Units three times a day with meals . Units as per sliding scale as instructed by provider to cover for steroid coverage when warranted 1 Each Active Ipratropium-Albute rol 0.5-2.5 (3) MG/3ML Inhalation Solution (Duoneb)Indication s:COPD, severity to be determined ([facility]),Wheezing Inhale 3 mL via nebulizer in the morning and 3 mL at noon and 3 mL before bedtime. 360 mL Active Fluticasone-Salmet aristeo 250-50 MCG/ACT Inhalation Aerosol Powder Breath Activated (Advair Diskus)Indications :COPD, severity to be determined ([facility]),Wheezing,Obe sity hypoventilation syndrome (HCC) Inhale 1 Puff [...] 8.0% ([facility]) Use 3 times daily as directed 1 Kit Active True Metrix Blood Glucose Test In Vitro Strip (Glucose Blood)Indications: Type 2 diabetes mellitus with hemoglobin A1c goal of less than 8.0% ([facility]) Use 3 times daily as directed 300 Strip 3 023 Active TRUEplus Lancets 33GIndications:Typ e 2 diabetes mellitus with hemoglobin A1c goal of less than 8.0% ([facility]) Use 3 times daily [...] MG Oral TabletIndications: Coronary artery disease involving sun'aq coronary artery of [...] THE AFTERNOON 90 Tablet 3 024 Active FreeStyle Js 3 [place] DeviceIndications: Type 2 diabetes mellitus with hemoglobin A1c goal of less than 8.0% ([facility]) Use as directed. 1 Each 1 024 Active Metoprolol Succinate ER 50 MG Oral Tablet Extended Release 24 Hour (toPROL XL)Indications:Cor onary artery disease involving sun'aq coronary artery of sun'aq heart without angina pectoris TAKE 1 & 1/2 TABLETS by mouth 2 TIMES A DAY 90 Tablet 5 024 Active Famotidine 20 MG Oral Tablet (Pepcid)Indication s:Gastroesophageal reflux disease without esophagitis Take 1 Tablet by mouth at bedtime. 30 Tablet 5 024 Active Finasteride 5 MG [...] the morning. 90 Tablet 2 024 Active Dextromethorphan-g uaiFENesin 10-100 MG/5ML Oral Liquid (Robitussin DM) Take 5 mL by mouth every 6 hours as needed for Cough. 120 mL 5 024 Active Incruse Ellipta 62.5 MCG/ACT Inhalation Aerosol Powder Breath Activated (umeclidinium [place]) Inhale 1 Puff by mouth in the morning. 30 Each 11 Active Azithromycin 250 MG Oral Tablet (Zithromax Z-Hector) Take two tablets by mouth on first day, then 1 tablet daily until gone 6 Tablet Active Ondansetron HCl 4 MG Oral Tablet (Zofran)Indication s:Nausea TAKE 1 TABLET BY MOUTH EVERY 8 HOURS NEEDED NAUSEA 20 Tablet 1 024 Active Potassium Chloride ER 20 MEQ Oral Tablet Extended Release Take 1 Tablet by mouth in the morning. Active Enoxaparin Sodium 150 MG/ML Injection Solution Prefilled Syringe (Lovenox) Inject 150 mg under the skin in the morning and 150 mg before bedtime. 024 Active Gabapentin 800 MG Oral Tablet (Neurontin) Take 1 Tablet by mouth in the morning and 1 Tablet at noon and 1 Tablet before bedtime. 90 Tablet 5 024 Active FreeStyle Js 3 SensorIndications: Type 2 diabetes mellitus with hemoglobin A1c goal of less than 8.0% ([facility]) Use as directed every 14 days. 6 Each 3 025 Active Spironolactone 25 MG Oral Tablet (Aldactone) Take 1 Tablet by mouth in the morning. In the morning.. 90 Tablet 3 025 Active Furosemide 80 MG Oral Tablet (Lasix) Take 1 Tablet by mouth in the morning and 1 Tablet before bedtime. Active Potassium Chloride Terra ER 20 MEQ Oral Tablet Extended Release Take 1 Tablet by mouth in the morning and 1 Tablet before bedtime. 60 Tablet 025 Active DULoxetine HCl 60 MG Oral Capsule Delayed Release Particles (Cymbalta)Indicati ons:Chronic bilateral low back pain without sciatica,DM type 2 with diabetic peripheral neuropathy (HCC) TAKE 1 CAPSULE BY MOUTH EVERY MORNING 90 Capsule 1 025 Active Ferrous Sulfate 325 (65 Fe) MG Oral Tablet (Feosol)Indication s:Iron deficiency anemia due to chronic blood loss TAKE 1 TABLET BY MOUTH EVERY DAY WITH BREAKFAST 90 Tablet 1 025 Active Cyclobenzaprine HCl 10 MG Oral Tablet (Flexeril)Indicati ons:Chronic pain syndrome TAKE 1 TABLET TWICE DAILY NEEDED FOR MUSCLE SPASM(S) 60 Tablet 5 025 Active oxyCODONE HCl 10 MG Oral Tablet (Roxicodone)Indica tions:Chronic pain of right knee Take 1 Tablet by mouth 2 times a day as needed for Pain, Moderate or Pain, Severe. 30 Tablet 025 Active oxyCODONE HCl 10 MG Oral Tablet (Roxicodone)Indica tions:Chronic pain of right knee Take 1 Tablet by mouth 2 times a day as needed for Pain, Moderate or Pain, Severe. 30 Tablet 025 2024 Discontinued(R efill) Insulin Glargine 100 UNIT/ML Subcutaneous Solution Pen-injector (Lantus) Inject 50 Units under the skin at bedtime. 10 Each 5 025 2024 Discontinued documented as of this encounter (statuses as of 12/04/2024) Active Problems Problem Noted Date Diagnosed Date Complicated UTI (urinary tract infection) 2023 Supratherapeutic INR 03/28/2024 Leukocytosis 03/28/2024 Chronic pain of right knee 03/28/2024 Bandemia 10/24/2021 Low testosterone 06/20/2021 Diabetic retinopathy of both [...] as of this encounter (statuses as of 12/04/2024) Resolved Problems Problem Noted Date Diagnosed Date Resolved Date Type 2 diabetes mellitus wit h foot ulcer (CODE) 06/20/2021 10/27/2024 Hyperlipidemia, unspecified 01/24/2021 03/14/2021 Indwelling Lloyd catheter [...] of kidney 08/20/2015 8 Overview (08/21/2015): right, [place] Vitamin D deficiency 01/31/2015 018 Body [...] as of this encounter (statuses as of 12/04/2024) Immunizations Name Administration Dates Next Due COVID-19 mRNA, LNP-s, No Pre serve, 2-Dose Series ([employer]) 01/02/2021,12/05/2020 DTP Vaccine 07/19/2017,04/03/2014 Hepatitis B, 20+ [...] ages 0-17 years) Not on file 03/28/2024 Food Insecurity Answer Date Recorded Worried About Running Out of Food in the Last Ye ar Not on file 03/28/2024 Ran Out of Food in the Last Year Not on file 03/28/2024 Do you need food for this week? No 03/28/2024 Sex and Gender Information Value Date [...] doing errands alone such as visiting a doctor’s office or shopping? (15 years old or [...] Telephone Encounter - Kehinde Mc MD - 12/04/2024 10:57 AM EDTSigned Prescriptions: Disp Refills oxyCODONE HCl 10 MG Oral Tablet (Roxicodon*30 Tab*0 Sig: Take 1 Tablet by mouth 2 times a day as needed for Pain, Moderate or Pain, Severe. Authorizing Provider: KEHINDE MC * Telephone Encounter - Kathy Estrada, [facility] - 11/28/2024 2:21 PM EDT Pending Prescriptions: Disp Refills oxyCODONE HCl 10 MG Oral Tablet (Roxicodon*30 Tab*0 Sig: Take 1 Tablet by mouth 2 times a day as needed for Pain, Moderate or Pain, Severe. * Telephone Encounter - Kathy Estrada, [facility] - 11/28/2024 2:17 PM EDT I have reviewed the patient’s controlled substance dispensing history in the Prescription Drug Monitoring Program in compliance with the [facility] regulations before prescribing a controlled substance. PDMP checked on 11/28/2024. Pending Prescriptions: Disp Refills oxyCODONE HCl 10 MG Oral Tablet (Roxicodo*30 Tab*0 Sig: Take 1 Tablet by mouth 2 times a day as needed for Pain, Moderate or Pain, Severe. Last Visit: Visit date not found (in office), 10/27/2024 (telemedicine) Next Visit: Visit date not found Date medication was last filled: 10/24/24 Date medication is due for refill: 11/06/24 Pharmacy: He [id number] Is this request for a controlled substance? Yes and Urine Drug Screen was completed Toxicology results: Results for orders placed or performed in [...] results can be found in Results Review. Please approve if appropriate. Thanks, Kathy Estrada [facility] Clinical Pharmacist Centralized Clinical Pharmacy Services ([facility]) [phone] * Telephone Encounter - Viola Liang [facility] - 11/28/2024 1:11 PM EDT Pt asking high priority as he is out of medication. Did you pend patient's preferred pharmacy and medication before forwarding?yes Pharmacy: E [id number] [id number] [facility] Pending Prescriptions: Disp Refills oxyCODONE HCl 10 MG Oral Tablet (Roxicodo*30 Tab*0 Sig: Take 1 Tablet by mouth 2 times a day as needed for Pain, Moderate or Pain, Severe. Last Visit: Visit date not found (in office), 10/27/2024 (telemedicine) Next Visit: Visit date not found If no future appointments scheduled, and last appointment is greater than a year ago, please schedule patient for a follow-up appointment Last date the medication was ordered: 10/24/24 Is this request for a controlled substance?Yes, What was the last refill date 10/24/24 w/ quantity 30 and dosage 10 mg and Urine Drug Screen was completed Urine Drug Screen: Results for orders placed [...] Lab Results Component Value Date/Time CREAT 1.0 11/09/2024 08:27 AM CREAT 1.05 08/05/2022 12:00 AM CREAT 1.1 10/15/2020 08:46 AM POTASSIUM 3.0 (L) 11/09/2024 08:27 AM POTASSIUM 3.7 08/05/2022 12:00 AM POTASSIUM 3.7 10/15/2020 08:46 AM TSH 1.51 12/10/2020 09:50 AM TSH 1.45 10/08/2020 08:05 AM LDL 59 05/15/2024 09:13 AM LDL 71 12/08/2022 08:38 AM LDL 95 10/08/2020 08:05 AM LDL NOT APPLICABLE 10/08/2020 08:05 AM LDLCALC 106 03/17/2016 12:00 AM ALT 18 10/26/2024 11:18 AM ALT 23 10/08/2020 08:05 AM HGBA1C 8.2 (H) 10/26/2024 11:18 AM HGBA1C 8.8 (H) 10/08/2020 08:05 AM documented in this encounter Plan of Treatment Upcoming Encounters Date Type Department Care Team (Late st Contact Info) Description 12/05/2024 7:15 AM EDT Laboratory Lab Mobile Phlebotomy [address] [place] [address] [facility] Mobile Home Draw [address] [place] [address] 12/06/2024 6:00 AM EDT Anticoagulation [facility], [facility] Griffin [address] [place] [address] [place] [address] [facility], [facility] [address] [place] [address] Health Maintenance Due Date Last Done Comments DISCUSS TOBACCO CESSATION (REFER TO SMARTSET #4733) 1970 HIV Screening 1985 Pneumococcal Vaccine: 50+ [...] Influenza Vaccine (FLU shot) (#1) 2024 08/26/2013 Diabetic Foot Exam 03/28/2025 03/28/2024, 0 12/14/2019, 09/02/2015, Additional history exists O2 ASSESSMENT COMPLETED IN PAST YEAR FOR COPD 04/04/2025 04/04/2024 HbA1c 04/25/2025 10/26/2024, 07/22, 05/15/2024, Additional history exists Albumin/Creatinine Ratio 05/29/2025 05/29/2024, 03/21 GFR 11/09/2025 11/09/2024, 10/21, 10/26/2024, Additional history exists DTap/Tdap Vaccines (4 - Td or Tdap) 06/08/2029 06/08/2019, 07/19/2017, 04/03/2014 Alpha-1 Antitrypsin Completed 12/16/2021 HPV (Gardasil) Vaccine Aged Out No lo nger eligible based on patient's age to complete this topic MENINGOCOCCAL (MENACTRA/MENVEO) Aged Out No longer eligible based on patient's age to complete this topic Meningitis B Vaccine (Bexsero/Trumemba) Aged Out No longer eligible based on patient's age to complete this topic documented as of this encounter Medical Devices Implanted Type Area Fish Frog Or Oyster Farmer Device Identifier Shelf Expiration Date Model / Serial / Lot Tube Flex 3.0x2.5 [id number] - [id number] Implanted:Qty: 1 on 12/07/2014 by Juancarlos Trinidad MD at [facility] Left: Finger [employer] : ORTHOPAEDICS 11/18/2015 [id number] / / [id number] documented as of this encounter Visit Diagnoses Diagnosis Chronic pain of right knee documented in this encounter Advance Directives * [...] (no specific identity) Health Care Power of Golf Course Ranger Care Teams Administrative Services Specialist Relationship Specialty Start Date End Date Kehinde Mc MD PCP - General Internal Medicine 03/28/24 documented as of this encounter
--- OUTSIDE RECORDS SUMMARY | 2024-12-05 00:42 | External Medical Summary | Summary of Care ---
Author Name Unknown Organization [facility] Address [address] [place] [address] Phone [phone] Care Team Providers Care Boat Builder Name Role Phone Kehinde Mc MD Primary Care Provider [phone] Reason for Visit * Reason Comments Dosage Adjustment Via Phone (anticoag Cl inic) Encounter Details Date Type Department Care Team ([facility] st Contact Info) Description 11/29/2024 6:00 AM EDT Anticoagulation Central[facility] Clinical Pharmacy Services, [facility] [address] [place] [address] [place] [address] [place] [address] History of pulmonary embolism* Allergies Active Allergy [...] as of this encounter (statuses as of 11/29/2024) Medications polyethylene glycol 3350 (MIRALAX) 255 gram [...] before bedtime. 04/19/20 22 Active nystatin (NYSTOP) 779854 UNIT/GM powderIndications:C utaneous candidiasis Apply topically to affected area 3 times a day. 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 30 Tablet 11 12/11/19 22 Active NovoLOG FlexPen 100 UNIT/ML Subcutaneous [...] MG Oral TabletIndications:C oronary artery disease involving chipewwa coronary artery of chipewwa heart without angina pectoris TAKE 1 TABLET [...] AFTERNOON 90 Tablet 3 05/16/20 24 Active FreeStyle Js 3 [place] DeviceIndications:T ype 2 diabetes mellitus with hemoglobin A1c goal of less than 8.0% ([facility]) Use as directed. 1 Each 1 05/30/20 24 Active Metoprolol Succinate ER 50 MG Oral Tablet Extended Release 24 Hour (toPROL XL)Indications:Freddie nary artery disease involving chipewwa coronary artery of chipewwa heart without angina pectoris TAKE 1 & 1/2 TABLETS by mouth 2 TIMES A DAY 90 Tablet 5 06/26/20 24 Active Famotidine 20 MG Oral Tablet (Pepcid)Indications :Gastroesophageal reflux disease without esophagitis Take 1 Tablet by mouth at bedtime. 30 Tablet 5 06/26/20 24 Active Finasteride 5 [...] morning. 90 Tablet 2 08/10/20 24 Active Dextromethorphan-gu aiFENesin 10-100 MG/5ML Oral Liquid (Robitussin DM) Take 5 mL by mouth every 6 hours as needed for Cough. 120 mL 5 08/14/20 24 Active Incruse Ellipta 62.5 MCG/ACT Inhalation Aerosol Powder Breath Activated (umeclidinium [place]) Inhale 1 Puff by mouth in the [...] than 8.0% ([facility]) Use as directed every 14 days. 6 Each 3 09/22/19 25 Active Spironolactone 25 MG Oral Tablet (Aldactone) Take 1 Tablet by mouth in the morning. In the morning.. 90 Tablet 3 09/22/19 25 Active Furosemide 80 MG Oral Tablet (Lasix) Take 1 Tablet by mouth in the morning and 1 Tablet before bedtime. 10/15/19 25 Active oxyCODONE HCl 10 MG Oral Tablet (Roxicodone)Indicat ions:Chronic pain of right knee Take 1 Tablet by mouth 2 times a day as needed for Pain, Moderate or Pain, Severe. 30 Tablet 10/24/19 25 Active Insulin Glargine 100 UNIT/ML Subcutaneous Solution Pen-injector (Lantus) Inject 50 Units under the skin at bedtime. 10 Each 5 11/02/19 25 Active Potassium Chloride Terra ER 20 MEQ Oral Tablet Extended Release Take 1 Tablet by mouth in the morning and 1 Tablet before bedtime. 60 Tablet 11/02/19 25 Active DULoxetine HCl 60 MG Oral Capsule Delayed Release Particles (Cymbalta)Indicatio ns:Chronic bilateral low back pain without sciatica,DM type 2 with diabetic peripheral neuropathy (HCC) TAKE 1 CAPSULE BY MOUTH EVERY MORNING 90 Capsule 1 11/10/19 25 Active Ferrous Sulfate 325 (65 Fe) MG Oral Tablet (Feosol)Indications :Iron deficiency anemia due to chronic blood loss TAKE 1 TABLET BY MOUTH EVERY DAY WITH BREAKFAST 90 Tablet 11/10/19 25 Active Cyclobenzaprine HCl 10 MG Oral Tablet (Flexeril)Indicatio ns:Chronic pain syndrome TAKE 1 TABLET TWICE DAILY NEEDED FOR MUSCLE SPASM(S) 60 Tablet 11/13/19 25 Active documented as of this encounter (statuses as of 11/29/2024) Active Problems Problem Noted Date Diagnosed Date [...] hemorrhage 10/04/2020 Coronary artery disease invo lving chipewwa heart without angina pectoris 10/04/2020 COPD, group [...] as of this encounter (statuses as of 11/29/2024) Resolved Problems Problem Noted Date Diagnosed Date [...] of kidney 08/20/2015 8 Overview (08/21/2015): right, [place] CT Vitamin D deficiency 01/31/2015 018 Body [...] as of this encounter (statuses as of 11/29/2024) Immunizations Name Administration Dates Next Due COVID-19 mRNA, LNP-s, No Pre serve, 2-Dose Series ([employer]) 01/02/2021,12/05/2020 DTP Vaccine 07/19/2017,04/03/2014 Hepatitis B, [...] Progress Notes * Waleska Shipley CPhT - 11/29/2024 8:09 AM EDT Contacts Contact Date/Time Type Contact Phone/Fax 11/29/2024 04:00 AM EDT Email SMS () [phone] Patient not accepting updates 11/29/2024 08:08 AM EDT Phone (Outgoing) Stanton Milner (Self) [phone] (H) Left Message Subjective Advised patient to contact Anticoagulation Clinic if any unusual bruising or bleeding, recent illness, changes in medication, or questions/concerns. PT/INR results, Coumadin dose instructions, and next PT/INR date communicated as noted by Pharmacist: Yes WALESKA SHIPLEY CPhT 11/29/2024, 8:09 AM * Keren Sanchez [facility] - 11/29/2024 7:55 AM EDT Images from the original note were not included. Coumadin Clinic (region specific) Objective Current Warfarin Dose As of 11/29/2024 Warfarin maintenance plan: 2.5 mg (5 mg x 0.5) every Tue, Micki, Sat; 5 mg (5 mg x 1) all other days INR Result As of 11/29/2024 INR goal: 2.0-3.0 INR used for dosin.8 (11/28/2024) Assessment & Plan Warfarin Plan As of 11/29/2024 Full warfarin instructions: 11/29: 10 mg; Otherwise 2.5 mg every Tue, Micki; 5 mg all other days Next INR check: 12/05/2024 Repeat PT/INR in 1 week(s) Weekly dose: increased Additional Dosing Information: Description GML(Count includes the [facility]) - pt prefers Tu GML at this time Tech to contact patient with dose instructions as noted. Keren Sanchez RPh 11/29/2024, 7:55 AM documented in this encounter Plan of Treatment Upcoming Encounters Date Type Department Care Team (Late st Contact Info) Description 12/06/2024 6:00 AM EDT Anticoagulation Centralized Clinical Pharmacy Services, [facility] [address] [place] [address] [place] Richardson [address] [facility], [address] [place] [address] Health Maintenance Due Date Last Done Comments DISCUSS TOBACCO CESSATION (REFER TO SMARTSET #4516) 1970 HIV Screening 1985 Pneumococcal Vaccine: 50+ [...] this encounter Medical Devices Implanted Type Area Crayon Sorting Machine Feeder Device Identifier Shelf Expiration Date Model / Serial / Lot Tube Flex 3.0x2.5 [id number] - [id number] Implanted:Qty: 1 on 12/07/2014 by Juancarlos Trinidad MD [place] [facility] [place] Finger [employer] : ORTHOPAEDICS 11/18/2015 [id number] / / [id number] documented as of this encounter Visit Diagnoses [...] (no specific identity) Health Care Power of Hospice Spiritual Care Coordinator Care Teams Boat Builder Relationship Specialty Start Date End Date Kehinde Mc MD PCP - General Internal Medicine 03/28/24 documented as of this encounter
--- OUTSIDE RECORDS SUMMARY | 2024-12-05 00:42 | External Medical Summary | Summary of Care ---
Author Name Unknown Organization [facility] Address [address] [place] [address] Phone [phone] Care Team Providers Care Cardiology Nurse Name Role Phone Kehinde Mc MD Primary Care Provider [phone] Reason for Visit * Reason Onset Date Comments Medication Question 11/21/2024 Encounter Details Date Type Department Care Team ([facility] st Contact Info) Description 11/21/2024 Telephone Centralized Clinical Pharmacy Services, Ciera Griffin [address] [place] [address] [place] [address] Keren Sanchez, [facility] [address] [place] [address] Medication Question Allergies Active Allergy Reactions Criticality Noted Date [...] as of this encounter (statuses as of 12/01/2024) Medications polyethylene glycol 3350 (MIRALAX) 255 gram [...] before bedtime. 04/19/20 22 Active nystatin (NYSTOP) 559781 UNIT/GM powderIndications:C utaneous candidiasis Apply topically to affected area 3 times a day. 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 ([facility]) Place 1 Tab under the tongue [...] :COPD, group C, by GOLD 2017 classification ([facility]),COPD, group D, by GOLD 2017 classification ([facility]) USE 2 PUFFS BY MOUTH EVERY 4 HOURS NEEDED SHORT OF BREATH 6.7 g 5 11/25/19 22 Active Magnesium Oxide 400 (241.3 Mg) MG Oral TabletIndications:C oronary artery disease involving [place] coronary artery of [place] heart without angina pectoris Take by mouth [...] MG Oral TabletIndications:C oronary artery disease involving [place] coronary artery of [place] heart without angina pectoris TAKE 1 TABLET BY MOUTH IN THE MORNING. 30 Tablet 5 04/28/20 24 Active glipiZIDE 10 MG Oral Tablet (Glucotrol)Indicati ons:Diabetes mellitus with nephropathy ([facility]) TAKE ONE TABLET BY MOUTH 2 TIMES A DAY 30 MINUTES BEFORE MEALS 180 Tablet 3 05/16/20 24 Active Atorvastatin Calcium 80 MG Oral Tablet (Lipitor) TAKE 1 TABLET BY MOUTH IN THE AFTERNOON 90 Tablet 3 05/16/20 24 Active FreeStyle Js 3 [place] DeviceIndications:T ype 2 diabetes mellitus with hemoglobin A1c goal of less than 8.0% ([facility]) Use as directed. 1 Each 1 05/30/20 24 Active Metoprolol Succinate ER 50 MG Oral Tablet Extended Release 24 Hour (toPROL XL)Indications:Freddie nary artery disease involving [place] coronary artery of [place] heart without angina pectoris TAKE 1 & [...] MCG/ACT Inhalation Aerosol Powder Breath Activated (umeclidinium [place]) Inhale 1 Puff by mouth in the [...] than 8.0% ([facility]) Use as directed every 14 days. [...] as of this encounter (statuses as of 12/01/2024) Active Problems Problem Noted Date Diagnosed Date [...] hemorrhage 10/04/2020 Coronary artery disease invo lving [place] heart without angina pectoris 10/04/2020 COPD, group [...] as of this encounter (statuses as of 12/01/2024) Resolved Problems Problem Noted Date Diagnosed Date [...] of kidney 08/20/2015 8 Overview (08/21/2015): right, [place] CT Vitamin D deficiency 01/31/2015 018 Body [...] as of this encounter (statuses as of 12/01/2024) Immunizations Name Administration Dates Next Due COVID-19 mRNA, LNP-s, No Pre serve, 2-Dose Series ([email or web address]) 01/02/2021,12/05/2020 DTP Vaccine 07/19/2017,04/03/2014 Hepatitis B, 20+ [...] encounter Miscellaneous Notes * Telephone Encounter - Cailin Bright LPN - 12/01/2024 2:01 PM EDT Patient seen in ED 11/28/24 * Telephone Encounter - Meredith Carroll LPN - 11/24/2024 2:56 PM EST Left message for pt to call back. * Telephone Encounter - Kehinde Mc MD - 11/23/2024 2:00 PM EST Due to his medical complexity and current conditions, if he is getting worse, should go to ER ruel * Telephone Encounter - Kehinde Mc MD - 11/23/2024 8:03 AM EST Would he like to do Urine test and repeat cbc at least now ? * Telephone Encounter - Keren Sanchez RPh - 11/21/2024 3:06 PM EST Please advise. During [facility] call today, pt with concerns and suspects a UTI. He did have CBC w/ diff done on 11/02 which showed WBC significantly elevated at 17.10. He does report malodorous urine, that is cloudy and dark rust-colored in appearance. Also reports lower flank pain that is atypical from his nerve pain and being lightheaded to the point where he goes to be hours earlier than he usually does around 5-6PM. Informed patient that this could be a sign that he has a kidney infection and should go to the ED or it can lead to sepsis. Patient said he would, but "he doesn't really care right now due to mother passing away" and knows that, if he goes to the hospital, they will admit him and then will miss his viewing for his mother on Wednesday. I empathized with the patient but reiterated the importanceof seeking medical help to prevent this from turning into a worsening kidney infection and/or sepsis. They stated that they will take this into consideration, but will need to think about it. His is aware as well and would like him to go to the hospital as well. I informed both of them to monitor for s/sx of sepsis included hypothermia/fever, tachycardia, SOB, and lightheadedness that progresses into syncope. Keren Sanchez Rph, Pharm.D. Clinical Pharmacist Centralized Clinical Pharmacy Services ([facility]) [phone] 11/21/2024,3:07 PM documented in this encounter Plan of Treatment Upcoming Encounters Date Type Department Care Team (Late st Contact Info) Description 12/05/2024 7:15 AM EDT Laboratory Lab Mobile Phlebotomy [address], [place] [address] [facility] Mobile Home Draw [address] [facility] [place], [place] [address] 12/06/2024 6:00 AM EDT Anticoagulation Centralized Clinical Pharmacy Services, Ciera Griffin [address] [place] [address] [place] [address] Ccps, [facility] [address] [place] [address] Health Maintenance Due Date Last Done Comments DISCUSS TOBACCO CESSATION (REFER TO SMARTSET #4811) 1970 HIV Screening 1985 Pneumococcal Vaccine: 50+ [...] this encounter Medical Devices Implanted Type Area High School Professional Device Identifier Shelf Expiration Date Model / Serial / Lot Tube Flex 3.0x2.5 [id number] - [id number] Implanted:Qty: 1 on 12/07/2014 by Juancarlos Trinidad MD at [facility] Left: Finger [employer] : ORTHOPAEDICS 11/18/2015 [id number] / / [id number] documented as of this encounter Advance Directives [...] (no specific identity) Health Care Power of Small Parts Assembler Care Teams Cardiology Nurse Relationship Specialty Start Date End Date Kehinde Mc MD PCP - General Internal Medicine 03/28/24 documented as of this encounter
--- OUTSIDE RECORDS SUMMARY | 2024-12-05 00:42 | External Medical Summary | Summary of Care ---
Author Name Unknown Organization [facility] Address [address] [place] [address] Phone [phone] Care Team Providers Care Summer Internship Name Role Phone Kehinde Mc MD Primary Care Provider [phone] Reason for Visit * Reason Onset Date Comments Medication Question 11/21/2024 Encounter Details Date Type Department Care Team ([facility] st Contact Info) Description 11/21/2024 Telephone Centralized Clinical Pharmacy Services, Ciera Griffin [address] [place] [address] [place] [address] Keren Sanchez, [facility] [address] [place] [address] Medication Question Allergies Active Allergy Reactions Criticality [...] before bedtime. 04/19/20 22 Active nystatin (NYSTOP) 916027 UNIT/GM powderIndications:C utaneous candidiasis Apply topically to [...] Oral TabletIndications:C oronary artery disease involving [place] coronary artery of [place] heart without angina pectoris Take by mouth [...] Oral TabletIndications:C oronary artery disease involving [place] coronary artery of [place] heart without angina pectoris TAKE 1 TABLET BY MOUTH IN THE MORNING. 30 Tablet 5 04/28/20 24 Active glipiZIDE 10 MG Oral Tablet (Glucotrol)Indicati ons:Diabetes mellitus with nephropathy ([facility]) TAKE ONE TABLET BY MOUTH 2 TIMES A DAY 30 MINUTES BEFORE MEALS 180 Tablet 3 05/16/20 24 Active Atorvastatin Calcium 80 MG Oral Tablet (Lipitor) TAKE 1 TABLET BY MOUTH IN THE AFTERNOON 90 Tablet 3 05/16/20 24 Active FreeStyle Js 3 [place] DeviceIndications:T ype 2 diabetes mellitus with hemoglobin A1c goal of less than 8.0% ([facility]) Use as directed. 1 Each 1 05/30/20 24 Active Metoprolol Succinate ER 50 MG Oral Tablet Extended Release 24 Hour (toPROL XL)Indications:Freddie nary artery disease involving [place] coronary artery of [place] heart without angina pectoris TAKE 1 & [...] MCG/ACT Inhalation Aerosol Powder Breath Activated (umeclidinium [place]) Inhale 1 Puff by mouth in the [...] 10/04/2020 Coronary artery disease invo lving [place] heart without angina pectoris 10/04/2020 COPD, group [...] of kidney 08/20/2015 8 Overview (08/21/2015): right, [place] CT Vitamin D deficiency 01/31/2015 018 Body [...] mRNA, LNP-s, No Pre serve, 2-Dose Series ([employer]) 01/02/2021,12/05/2020 DTP Vaccine 07/19/2017,04/03/2014 Hepatitis B, 20+ [...] Clinical Pharmacist [facility]ized Clinical Pharmacy [facility] ([facility]) [phone] 11/21/2024,3:07 PM documented in this encounter Plan of Treatment Upcoming Encounters Date Type Department Care Team (Late st Contact Info) Description 12/05/2024 7:15 AM EDT Laboratory Lab Mobile Phlebotomy [address], [place] [address] [facility] Mobile Home Draw [address] [facility] [place], [place] [address] 12/06/2024 6:00 AM EDT Anticoagulation Centralized Clinical Pharmacy Services, Ciera Griffin [address] [place] [address] [place] [address] Ccps, [facility] [address] [place] [address] Health Maintenance Due Date Last Done Comments DISCUSS TOBACCO CESSATION (REFER TO SMARTSET #3323) 1970 HIV Screening 1985 Pneumococcal Vaccine: 50+ [...] this encounter Medical Devices Implanted Type Area Resp Ther Device Identifier Shelf Expiration Date Model / Serial / Lot Tube Flex 3.0x2.5 [id number] - [id number] Implanted:Qty: 1 on 12/07/2014 by Juancarlos Trinidad MD at [facility] Left: Finger [employer] : ORTHOPAEDICS 11/18/2015 [id number] / / [id number] documented as of this encounter Advance Directives [...] (no specific identity) Health Care Power of Pe Teacher Care Teams Summer Internship Relationship Specialty Start Date End Date Kehinde Mc MD PCP - General Internal Medicine 03/28/24 documented as of this encounter
--- NOTE | 2024-12-05 00:47 | XRay Report ---
Exam(s): XR RIGHT KNEE, 3 views EXAM: XR Right Knee, 3 Views CLINICAL HISTORY: Reason for exam: knee pain. TECHNIQUE: Three views of the right knee. COMPARISON: No relevant prior studies available. FINDINGS: Bones/joints: Degenerative loss of joint space in the medial knee compartment. No acute fracture. No dislocation. No joint effusion. Soft tissues: Unremarkable. IMPRESSION: No acute findings in the right knee. Electronically signed by: Robert Khan MD 12/05/24 00:46 AM
[2024-12-05] MEDS: MAGNESIUM SULFATE / D5W 1 GM/100 ML BAG IV SCH (02:15)
[2024-12-05] MEDS: POTASSIUM CHLORIDE CRTAB 20 MEQ TABCR PO ONE (02:28)
[2024-12-05] MEDS: CYCLOBENZAPRINE HCL 10 MG TAB PO PRN (02:29)
--- OUTSIDE RECORDS SUMMARY | 2024-12-05 05:51 | External Medical Summary | Summary of Care ---
Author Name Unknown Organization [facility] Address [address] [place] [address] Phone [phone] Care Team Providers Care Custodian Athletic Equipment Name Role Phone Kehinde Mc MD Primary Care Provider [phone] Encounter Details Date Type Department Care Team (Late st Contact Info) Description 12/01/2024 Telephone [facility] [address] [place] [address] Kehinde Mc MD [address] [place], [place] [id number] Allergies Active Allergy Reactions Criticality Noted Date [...] 1 Tablet before bedtime. Active nystatin (NYSTOP) 367398 UNIT/GM powderIndications: Cutaneous candidiasis Apply topically to [...] s:COPD, group C, by GOLD 2017 classification ([facility]),COPD, group D, by GOLD 2017 classification ([facility]) USE 2 PUFFS BY MOUTH EVERY 4 HOURS NEEDED SHORT OF BREATH 6.7 g 5 Active Magnesium Oxide 400 (241.3 Mg) MG Oral TabletIndications: Coronary artery disease involving [place] coronary artery of [place] heart without angina pectoris Take by mouth [...] times daily as directed 300 Strip 3 12/12/2 023 Active TRUEplus Lancets 33GIndications:Typ e 2 [...] MG Oral TabletIndications: Coronary artery disease involving [place] coronary artery of [place] heart without angina pectoris TAKE 1 TABLET [...] Tablet 3 024 Active FreeStyle Js 3 [place] DeviceIndications: Type 2 diabetes mellitus with hemoglobin A1c goal of less than 8.0% ([facility]) Use as directed. 1 Each 1 024 Active Metoprolol Succinate ER 50 MG Oral Tablet Extended Release 24 Hour (toPROL XL)Indications:Cor onary artery disease involving [place] coronary artery of [place] heart without angina pectoris TAKE 1 & [...] MCG/ACT Inhalation Aerosol Powder Breath Activated (umeclidinium [place]) Inhale 1 Puff by mouth in the morning. 30 Each 11 024 Active Azithromycin 250 MG Oral Tablet (Zithromax Z-Hector) Take two tablets by mouth on first day, then 1 tablet daily until gone 6 Tablet 024 Active Ondansetron HCl 4 MG Oral Tablet [...] 8.0% ([facility]) Use as directed every 14 days. 6 Each 3 025 Active Spironolactone 25 MG Oral Tablet (Aldactone) Take 1 Tablet by mouth in the morning. In the morning.. 90 Tablet 3 025 Active Furosemide 80 MG Oral Tablet (Lasix) Take 1 Tablet by mouth in the morning and 1 Tablet before bedtime. 025 Active Potassium Chloride Terra ER 20 MEQ [...] MUSCLE SPASM(S) 60 Tablet 5 025 Active Toujeo Max SoloStar 300 UNIT/ML Subcutaneous Solution Pen-injector (Insulin Glargine (2 Unit Dial)) Inject 50 Units under the skin at bedtime. 15 mL 3 025 Active Insulin Glargine 100 UNIT/ML Subcutaneous Solution [...] hemorrhage 10/04/2020 Coronary artery disease invo lving [place] heart without angina pectoris 10/04/2020 COPD, group [...] of kidney 08/20/2015 8 Overview (08/21/2015): right, [place] CT Vitamin D deficiency 01/31/2015 018 Body [...] mRNA, LNP-s, No Pre serve, 2-Dose Series ([employer]) 01/02/2021,12/05/2020 DTP Vaccine 07/19/2017,04/03/2014 Hepatitis B, 20+ [...] Encounter - Kehinde Mc MD - 12/04/2024 11:01 AM EDT Sent cortney ivoryastar * Telephone Encounter - Brandie Haas OSA - 12/01/2024 10:41 AM EDT Received fax from [facility] pharmacy for an alternative requested. Drug: Insulin GlARGINE-YFGN U100 PEN Sig: Inject 50 units under the skin at bedtime Reason for request: alternative requested Pharmacy comments: The prescribed medication is not covered by insurance. Please consider changing to one of the suggested covered alternatives Suggested alternatives: Lantus 100UNIT/ML VIAL, Toujeo SOLOSTART 300 UNIT/ML, Toujeo MAX SOLOSTR 300 UNIT/ML, Tresiba 100 UNIT/ML VIAL, Tresiba Flextouch 100 UNIT/ML documented in this encounter Plan of Treatment Upcoming Encounters Date Type Department Care Team (Late st Contact Info) Description 12/05/2024 7:15 AM EDT Laboratory Lab Mobile Phlebotomy [address] [place] [address] [facility] Mobile Home Draw [address] [place] [address] [place] [address] 12/06/2024 6:00 AM EDT Anticoagulation Centralized Clinical Pharmacy Services, Ciera Griffin [address] [place] [address] [place] [address] C[facility]ps, [address] [place] [address] Health Maintenance Due Date Last Done Comments DISCUSS TOBACCO CESSATION (REFER TO SMARTSET #6314) 1970 HIV Screening 1985 Pneumococcal Vaccine: 50+ [...] this encounter Medical Devices Implanted Type Area Wire Communications Engineer Device Identifier Shelf Expiration Date Model / Serial / Lot Tube Flex 3.0x2.5 [id number] - [id number] Implanted:Qty: 1 on 12/07/2014 by Juancarlos Trinidad MD at [facility] Left: Finger [employer] : ORTHOPAEDICS 11/18/2015 [id number] / / [id number] documented as of this encounter Advance Directives [...] (no specific identity) Health Care Power of Solar Energy Installation Manager Care Teams Custodian Athletic Equipment Relationship Specialty Start Date End Date Kehinde Mc MD PCP - General Internal Medicine 03/28/24 documented as of this encounter
[2024-12-05 08:22] LABS: Hematocrit (blood only) 37.3 % (42.0-52.0); Hemoglobin 12.1 g/dl (14.0-18.0); Mean Corpuscular Hemoglobin 26.1 pg (25.0-34.0); Mean Corpuscular Hgb Conc 32.4 g/dL (32.0-36.0); Mean Corpuscular Volume 80.6 fL (80.0-100.0); Mean Platelet Volume 11.5 fL (9.4-12.4); Platelet Count 211 K/uL (130-400); RDW Coefficient of Variation 17.8 % (11.5-14.5); RDW Standard Deviation 51.8 fL (36.4-46.3); Red Blood Count 4.63 M/uL (4.70-6.10); White Blood Count 12.53 K/ul (4.8-10.8)
[2024-12-05 08:42] LABS: BUN Creatinine Ratio 21.4 (10-20); Creatinine Clr Calc Pharmacy 132.3 ml/min; Magnesium 2.2 mg/dl (1.7-2.4); Potassium 2.5 mmol/L (3.5-5.1)
[2024-12-05] MEDS: FINASTERIDE 5 MG TAB PO SCH (08:51)
[2024-12-05] MEDS: SPIRONOLACTONE 25 MG TAB PO SCH (08:51)
[2024-12-05] MEDS: ISOSORBIDE DINITRATE 20 MG TAB PO SCH (08:52)
[2024-12-05] MEDS: DULoxetine HCL 60 MG CAP PO SCH (08:53)
[2024-12-05] MEDS: TAMSULOSIN HCL 0.4 MG CAP PO SCH (08:53)
[2024-12-05] MEDS: guaiFENesin 600 MG TABCR PO PRN (08:54)
[2024-12-05] MEDS: NICOTINE 14 MG/24 HR PATCH TD SCH (08:56)
[2024-12-05] MEDS: DICLOFENAC SOD 1% GEL 100 GM TUBE EXT SCH (08:56)
[2024-12-05] MEDS: buprenorphine HCL 8 MG SUBL SL SCH ×2 (09:15→14:16)
[2024-12-05] MEDS: POTASSIUM CHLORIDE CRTAB 20 MEQ TABCR PO SCH ×3 (09:20→17:50)
--- NOTE | 2024-12-05 10:09 | Hospitalist Progress Note ---
Date of Service December 05, 2024 Assessment & Plan (1) Sepsis: (2) Catheter-associated urinary tract infection: Plan: -as indicated by leukocytosis and tachycardia on arrival -likely 2/2 UTI, -has grown in past year: Morganella, Providencia, MRSA, enterobacter, Proteus, Klebsiella Plan: -vancomycin/ertapenem for now, -f/u culture results -replace catheter for source control (3) MAHAMED (acute kidney injury): Plan: -Creatinine of 1.57 on admission, downtrended. (4) Hypokalemia: Plan: -continue replacement (5) Supratherapeutic INR: Plan: -hold warfarin (6) Weakness: Plan: -chronic -PT/OT ordered (7) Osteoarthritis of right knee: Plan: -voltaren cream -needs f/u outpatient for consideration of knee replacement (8) Obesity hypoventilation syndrome: (9) (HFpEF) heart failure with preserved ejection fraction: Plan: -hold lasix given MAHAMED -likely needs less lasix on discharge given electrolytes (10) Smoking: Plan: -nicotine patch (11) Chronic pain: Plan: -ordered home medications (12) Morbid obesity: Plan: -would benefit from GLP-1 in outpatient setting (13) Grief: Plan: -patient struggling from recent of mother Plan: -pastoral care consult (14) DM2 (diabetes mellitus, type 2): Plan: -pharmacy consult -insulin protocol -wound culture swab of right anterior leg, wound care consulted Plan Full code dvt prophylaxis couamadin Time spent evaluating patient, direct bedside care, chart review, placing ord ers, interpretation of diagnostic studies, discussion with consultants, patient, and family members, as well as other required patient management activities is 50 minutes Please note the above document was generated using voice recognition software. It may contain grammatical, syntax or spelling errors. Any formal questions or concerns about the content, text or information contained within the body of this dictation should be directly addressed to the provider for clarification Admission and Anticipated Discharge Date Admission Date: December 04, 2024 Subjective Patient seen and examined at bedside. Comfortable; not in distress. Denies fever, chills, chest pain, shortness of breath, abdominal pain or urinary symptoms. No significant overnight events Review of Systems Review of Systems: All systems reviewed & are unremarkable except as noted in Subjective Physical Exam Physical Exam: Constitutional: Awake, alert oriented x 3. Not in distress. Respiratory: Bilateral vesicular breath sound. Cardiovascular: RRR, no murmur, no edema Vessels: no JVD or carotid bruit Chest: normal inspection of chest Abdomen: Soft, nontender. Musculoskeletal: Superficial wound on anterior sandhu on right leg Neurologic: PERRL, EOMI, accommodation nl, no face palsy, no dysarthria CN's II- XI intact bilaterally and moves all extremities Psychiatric: A+Ox3, euthymic affect Results & Data Results & Data Vital Signs (Past 12 Hours) Vital Signs Temp Pulse Resp BP Pulse Ox O2 Del Method O2 Flow Rate 12/05/24 09:20 62 20 138/75 95 Room Air 12/05/24 07:29 58 L 16 99 Nasal Cannula 5 12/05/24 07:22 36.6 C 55 L 16 114/64 97 Nasal Cannula 5 (1) Sepsis Acute renal failure type: unspecified Sepsis acute organ dysfunction status: with acute organ dysfunction Sepsis type: sepsis due to unspecified organism Severe sepsis acute organ dysfunction type: acute renal failure Severe sepsis shock status: without septic shock Qualified Code(s): A41.9 - Sepsis, unspecified organism; R65.20 - Severe sepsis without septic shock; N17.9 - Acute kidney failure, unspecified (2) Catheter-associated urinary tract infection Encounter type: initial encounter Indwelling urinary catheter type: unspecified Qualified Code(s): T83.511A - Infection and inflammatory reaction due to indwelling urethral catheter, initial encounter; N39.0 - Urinary tract infection, site not specified (7) Osteoarthritis of right knee Osteoarthritis type: primary Qualified Code(s): M17.11 - Unilateral primary osteoarthritis, right knee (9) (HFpEF) heart failure with preserved ejection fraction Heart failure chronicity: chronic Qualified Code(s): I50.32 - Chronic diastolic (congestive) heart failure (11) Chronic pain Chronic pain type: chronic pain syndrome Qualified Code(s): G89.4 - Chronic pain syndrome (14) DM2 (diabetes mellitus, type 2) Diabetes mellitus complication detail: with peripheral angiopathy without gangrene Diabetes mellitus complication status: with circulatory complication Diabetes mellitus local company intermodal truck driver insulin use: with local company intermodal truck driver use Qualified Code(s): E11.51 - Type 2 diabetes mellitus with diabetic peripheral angiopathy without gangrene; Z79.4 - [facility]CI (current) use of insulin
[2024-12-05] MEDS: POTASSIUM CHLORIDE / WTR 10 MEQ/100 ML PLCT IV SCH (10:26)
[2024-12-05] MEDS: VANCOMYCIN HCL 1,250 MG in SODIUM CHLORIDE 0.9% 250 ML IV SCH (12:42)
--- NOTE | 2024-12-05 13:45 | Pharmacy Report ---
Pharmacy PK ABX Note - Date of Service December 05, 2024 - Assessment and Plan Assessment 54 year old M receiving vancomycin/ertapenem for treatment of sepsis/catheter associated urinary tract infection. Pertinent microbiologic data includes: Current urine culture growing Morganella (sensitivities pending). Blood cultures pending. Initially with elevated SCr is now downtrending Plan Vancomycin * Loading dose: 2500 mg IV x 1 * Maintenance dose: 1250 mg IV every 8 hours * Regimen is predicted to achieve target AUC/JERONIMO of 400-600 mg/L.hr * Random level to be ordered for 12/06@ 1000 Pharmacy will continue to follow and will adjust dose/frequency as necessary. Thank you. Pharmacy has transitioned to AUC monitoring for vancomycin. AUC/JERONIMO is the preferred PK/PD target and is associated with decreased risk of nephrotoxicity compared to traditional trough targets.
--- NOTE | 2024-12-05 13:47 | Pharmacy Report ---
Pharmacy Glycemic Short Note 2 - Date of Service December 05, 2024 - Glycemic Short BSG Results (Last 24 hours): 12/04/24 12/04/24 12/04/24 15:15 19:01 22:53 Glucose 182 H POC Glucose 168 H 218 H 12/05/24 12/05/24 12/05/24 07:16 07:45 07:46 Glucose 401 H* POC Glucose 402 H* 416 H* 12/05/24 11:38 Glucose POC Glucose 200 H OUTPATIENT ANTIDIABETIC REGIMEN: * Semglee 50 units HS- (taking scale) * glipizide * A1c pending; 08/2024 8.1% ASSESSMENT: * 54 y/o male admitted with possible urosepsis, currently being treated with ertapenem/vancomycin * Patient arrived to floor last PM, uncertain if patient had uncovered food, regular diet ordered * Received 50 units of lantus HS (~0000), BSG this morning in the 400s, potassium 2.5, will utilize SQ insulin for now given hypokalemia * BSG improved to 200 mg/dL with lunch, will continue current novolog parameters PLAN FOR INPATIENT GLYCEMIC CONTROL: * Hold outpatient oral diabetes medications * Basal insulin * Lantus 45-50-55 units SQ per scale * Bolus insulin * NovoLog per scale ACHS or Q6hrs while NPO * Goal Range: Low 110 mg/dL - High 140 mg/dL * Correction Factor: 15 mg/dL/unit * Nutritional / Prandial insulin per carb ratio of 1 unit per 5 grams CHO consumed
[2024-12-05] MEDS ORDERED: VANCOMYCIN HCL 1,000 MG/270 ML BAG IV SCH (14:00)
--- NOTE | 2024-12-05 14:47 | Electrocardiogram Report ---
Test Reason : Blood Pressure : */* mmHG Vent. Rate : 83 BPM Atrial Rate : 83 BPM P-R Int : 174 ms QRS Dur : 124 ms QT Int : 366 ms P-R-T Axes : 65 30 86 degrees QTcB Int : 430 ms Normal sinus rhythm Right bundle branch block Abnormal ECG When compared with ECG of 03-Sep-2024 10:27, Non-specific change in ST segment in Inferior leads ST now depressed in Lateral leads T wave inversion now evident in Lateral leads Confirmed by Luan Escalante ([id number]) on 12/05/2024 2:47:18 PM Referred By: REFERRED SELF Confirmed By: Luan Escalante
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
[2024-12-05 15:47] LABS: BUN Creatinine Ratio 19.1 (10-20); Calcium 9.6 mg/dl (8.6-10.3); Potassium 2.8 mmol/L (3.5-5.1)
[2024-12-05] MEDS: ACETAMINOPHEN 1,000 MG/100 ML VIAL IV PRN (17:50)
[2024-12-06 00:04] LABS: BUN Creatinine Ratio 14.5 (10-20); Calcium 9.5 mg/dl (8.6-10.3); Creatinine Clr Calc Pharmacy 123.9 ml/min; Potassium 3.3 mmol/L (3.5-5.1)
[2024-12-06] MEDS: POTASSIUM CHLORIDE CRTAB 20 MEQ TABCR PO STA (00:50)
[2024-12-06 07:29] LABS: Base Excess VBG 15.9 mEq/L; HCO3 VBG 43 mmol/L; PCO2 VBG 62 mmHg (38-50); PO2 VBG 46 mmHg; pH VBG 7.45 (7.36-7.41)
[2024-12-06 07:35] LABS: Hematocrit (blood only) 39.4 % (42.0-52.0); Hemoglobin 12.7 g/dl (14.0-18.0); Mean Corpuscular Hemoglobin 26.3 pg (25.0-34.0); Mean Corpuscular Hgb Conc 32.2 g/dL (32.0-36.0); Mean Corpuscular Volume 81.6 fL (80.0-100.0); Mean Platelet Volume 10.7 fL (9.4-12.4); Platelet Count 210 K/uL (130-400); RDW Standard Deviation 53.1 fL (36.4-46.3); Red Blood Count 4.83 M/uL (4.70-6.10); White Blood Count 9.78 K/ul (4.8-10.8)
[2024-12-06 07:54] LABS: BUN Creatinine Ratio 15.2 (10-20); Calcium 9.5 mg/dl (8.6-10.3); Creatinine Clr Calc Pharmacy 148.1 ml/min; Magnesium 1.8 mg/dl (1.7-2.4); Potassium 3.7 mmol/L (3.5-5.1)
[2024-12-06] MEDS: POLYETHYLENE (MIRALAX) 17 GM PACK PO PRN (08:50)
--- NOTE | 2024-12-06 10:15 | Hospitalist Progress Note ---
Date of Service December 06, 2024 Assessment & Plan (1) Sepsis: (2) Catheter-associated urinary tract infection: Plan: -as indicated by leukocytosis and tachycardia on arrival -likely 2/2 UTI, Urine culture growing Morganella morganii; sensitive to Zosyn and ciprofloxacin. Blood cultureno growth Stop vancomycin and ertapenem. Switch over to Zosyn for now. Plan to switch over to ciprofloxacin at the time of the discharge to provide 7-day course. Status post Lloyd catheter exchange (3) MAHAMED (acute kidney injury): Plan: -Creatinine of 1.57 on admission, downtrended. -Lasix resumed on December 06 (4) Hypokalemia: Plan: -Potassium of 2.4 on admission -continue replacement, currently on Kcl 40meq bid (5) Supratherapeutic INR: Plan: -hold warfarin -PT/INR daily (6) Weakness: Plan: -chronic -PT/OT ordered (7) Osteoarthritis of right knee: Plan: -voltaren cream -needs f/u outpatient for consideration of knee replacement (8) Obesity hypoventilation syndrome: (9) (HFpEF) heart failure with preserved ejection fraction: Plan: -Continue lasix (10) Smoking: Plan: -nicotine patch (11) Chronic pain: Plan: -ordered home medications (12) Morbid obesity: Plan: -would benefit from GLP-1 in outpatient setting (13) Grief: Plan: -patient struggling from recent of mother Plan: -pastoral care consult (14) DM2 (diabetes mellitus, type 2): Plan: -pharmacy consult -insulin protocol Plan Full code dvt prophylaxis nicolas Time spent evaluating patient, direct bedside care, chart review, placing orders, interpretation of diagnostic studies, discussion with consultants, patient, and family members, as well as other required patient management activities is 50 minutes Please note the above document was generated using voice recognition software. It may contain grammatical, syntax or spelling errors. Any formal questions or concerns about the content, text or information contained within the body of this dictation should be directly addressed to the provider for clarification Admission and Anticipated Discharge Date Admission Date: December 04, 2024 Subjective Patient seen and examined at bedside. Comfortable; not in distress. Reports that he is still fatigued. Review of Systems Review of Systems: All systems reviewed & are unremarkable except as noted in Subjective Physical Exam Physical Exam: Constitutional: Awake, alert oriented x 3. Not in distress. Respiratory: Bilateral vesicular breath sound. Cardiovascular: RRR, no murmur, no edema Vessels: no JVD or carotid bruit Chest: normal inspection of chest Abdomen: Soft, nontender. Musculoskeletal: Superficial wound on anterior sandhu on right leg Neurologic: PERRL, EOMI, accommodation nl, no face palsy, no dysarthria CN's II- XI intact bilaterally and moves all extremities Psychiatric: A+Ox3, euthymic affect Results & Data Results & Data Vital Signs (Past 12 Hours) Vital Signs Temp Pulse Resp BP Pulse Ox O2 Del Method O2 Flow Rate 12/06/24 08:36 59 L 18 117/66 95 Room Air 12/06/24 07:02 36.6 C 56 L 16 122/70 100 Nasal Cannula 5 (1) Sepsis Acute renal failure type: unspecified Sepsis acute organ dysfunction status: with acute organ dysfunction Sepsis type: sepsis due to unspecified organism Severe sepsis acute organ dysfunction type: acute renal failure Severe sepsis shock status: without septic shock Qualified Code(s): A41.9 - Sepsis, unspecified organism; R65.20 - Severe sepsis without septic shock; N17.9 - Acute kidney failure, unspecified (2) Catheter-associated urinary tract infection Encounter type: initial encounter Indwelling urinary catheter type: unspecified Qualified Code(s): T83.511A - Infection and inflammatory reaction due to indwelling urethral catheter, initial encounter; N39.0 - Urinary tract infection, site not specified (7) Osteoarthritis of right knee Osteoarthritis type: primary Qualified Code(s): M17.11 - Unilateral primary osteoarthritis, right knee (9) (HFpEF) heart failure with preserved ejection fraction Heart failure chronicity: chronic Qualified Code(s): I50.32 - Chronic diastolic (congestive) heart failure (11) Chronic pain Chronic pain type: chronic pain syndrome Qualified Code(s): G89.4 - Chronic pain syndrome (14) DM2 (diabetes mellitus, type 2) Diabetes mellitus complication detail: with peripheral angiopathy without gangrene Diabetes mellitus complication status: with circulatory complication Diabetes mellitus exterminator helper insulin use: with exterminator helper use Qualified Code(s): E11.51 - Type 2 diabetes mellitus with diabetic peripheral angiopathy without gangrene; Z79.4 - care home (current) use of insulin
[2024-12-06] MEDS: 4.5GM X1 IV ONE (11:14)
[2024-12-06] MEDS: ASPIRIN 81 MG ECTAB PO SCH (11:14)
[2024-12-06] MEDS: LACTOBACILLUS ACIDOPHILUS 1 GM PACK PO SCH (11:15)
[2024-12-06] MEDS: MAGNESIUM OXIDE 400 MG TAB PO SCH (11:15)
[2024-12-06] MEDS: POTASSIUM CHLORIDE CRTAB 20 MEQ TABCR PO SCH (11:15)
[2024-12-06 12:03] LABS: Prothrombin Time 20.7 Seconds (9.0-12.0)
[2024-12-06] MEDS: PIPERACILLIN/TAZOBACTAM 4.5 GM/100 ML BAG IV SCH (15:01)
[2024-12-06 15:15] LABS: Estimated Average Glucose 203 mg/dl; Hemoglobin A1C 8.7 % (4.5-5.6)
[2024-12-06] MEDS: FUROSEMIDE 40 MG TAB PO SCH (17:47)
[2024-12-06] MEDS: FAMOTIDINE 20 MG TAB PO SCH (20:17)
[2024-12-07 07:23] LABS: Hematocrit (blood only) 38.3 % (42.0-52.0); Hemoglobin 12.2 g/dl (14.0-18.0); Mean Corpuscular Hemoglobin 26.3 pg (25.0-34.0); Mean Corpuscular Hgb Conc 31.9 g/dL (32.0-36.0); Mean Corpuscular Volume 82.7 fL (80.0-100.0); Mean Platelet Volume 11.3 fL (9.4-12.4); Platelet Count 224 K/uL (130-400); RDW Coefficient of Variation 18.1 % (11.5-14.5); RDW Standard Deviation 54.1 fL (36.4-46.3); Red Blood Count 4.63 M/uL (4.70-6.10); White Blood Count 10.12 K/ul (4.8-10.8)
[2024-12-07 07:45] LABS: INR 1.4 (0.9-1.1); Prothrombin Time 14.6 Seconds (9.0-12.0)
[2024-12-07 08:20] LABS: BUN Creatinine Ratio 14.8 (10-20); Calcium 8.7 mg/dl (8.6-10.3); Creatinine Clr Calc Pharmacy 154.8 ml/min; Magnesium 1.4 mg/dl (1.7-2.4); Potassium 4.1 mmol/L (3.5-5.1)
[2024-12-07] MEDS: LANTUS PER UNIT CHARGE SQ ONE (09:00)
[2024-12-07] MEDS: MAGNESIUM SULFATE / D5W 1 GM/100 ML BAG IV SCH (11:48)
--- NOTE | 2024-12-07 13:52 | Pharmacy Report ---
Pharmacy Glycemic Short Note 2 - Date of Service December 07, 2024 - Glycemic Short BSG Results (Last 24 hours): 12/06/24 12/06/24 12/07/24 17:05 20:40 06:51 Glucose 354 H* POC Glucose 197 H 206 H 12/07/24 12/07/24 12/07/24 07:44 07:45 11:47 Glucose POC Glucose 330 H* 353 H* 110 H OUTPATIENT ANTIDIABETIC REGIMEN: * Semglee 50 units HS- (taking scale) * glipizide * A1c 8.7% ASSESSMENT: 12/07: * Stanton received 112 units of SC insulin yesterday (50 units basal + 62 units bolus) * Fasting BSG of 353 mg/dL. Unsure if this is true fasting. Current ordered dose of basal insulin has worked well for patient during past. Will schedule an additional 10 units for this morning and continue current basal scale. * Novolog parameters were tightened to CF/CR: 12/4 last evening due to persisten t hyperglycemia. Today BSG corrected from 353 at breakfast to 110 mg/dL at lunch. Will resume previous parameters of CF/CR: 115/5 now that hyperglycemia has resolved. 12/06: * 54 y/o male admitted with possible urosepsis, currently being treated with ertapenem/vancomycin * Patient arrived to floor last PM, uncertain if patient had uncovered food, regular diet ordered * Received 50 units of lantus HS (~0000), BSG this morning in the 400s, potassium 2.5, will utilize SQ insulin for now given hypokalemia * BSG improved to 200 mg/dL with lunch, will continue current novolog parameters PLAN FOR INPATIENT GLYCEMIC CONTROL: * Hold outpatient oral diabetes medications * Basal insulin * Lantus 10 units SQ x1 this AM * Lantus 45-50-55 units SQ per scale * Bolus insulin * NovoLog per scale ACHS or Q6hrs while NPO * Goal Range: Low 110 mg/dL - High 140 mg/dL * Correction Factor: 15 mg/dL/unit * Nutritional / Prandial insulin per carb ratio of 1 unit per 5 grams CHO consumed
--- NOTE | 2024-12-07 15:29 | Hospitalist Progress Note ---
Date of Service December 07, 2024 Assessment & Plan (1) Complicated UTI (urinary tract infection): Plan Sepsis: Catheter-associated urinary tract infection: -as indicated by leukocytosis and tachycardia on arrival -likely 2/2 UTI, Urine culture growing Morganella morganii; sensitive to Zosyn and ciprofloxacin. Blood cultureno growth Ertapenem 12/04 --> switched to zosyn 12/06, c/w zosyn for now. Plan to switch over to ciprofloxacin at the time of the discharge to provide 7-day course. Status post Lloyd catheter exchange this admission. MAHAMED (acute kidney injury): Creatinine of 1.57 on admission, downtrended. Lasix resumed on December 06, 2024 Hypokalemia: Potassium of 2.4 on admission. continue replacement, currently on Kcl 40meq bid, monitor. Constipation: pt reports not moving bowels for 1-2 weeks at presentation, is m oving gas, has been eating greatly w/ no discomfort. will put him on jaci bowel regimen, hold for loose stool. Supratherapeutic INR: INR at presentation 3.5, today 1.4, resume home warfarin, pt/inr in AM. Weakness: chronic, PT/OT ordered Osteoarthritis of right knee: voltaren cream. needs f/u outpatient for consideration of knee replacement Obesity hypoventilation syndrome: (HFpEF) heart failure with preserved ejection fraction: -Continue lasix Smoking: nicotine patch Chronic pain: ordered home medications Morbid obesity: would benefit from GLP-1 in outpatient setting Grief: patient struggling from recent of mother. pastoral care consult DM2 (diabetes mellitus, type 2): pharmacy consult. insulin protocol [facility] Admission and Anticipated Discharge Date Admission Date: December 04, 2024 Subjective Patient seen and examined at bedside. Comfortable; not in distress. Reports that he is still fatigued. Reports he has not moved bowels in 1-2 weeks, but is moving gas, denies belly pain and has been able to eat without problem Physical Exam Physical Exam: Constitutional: Awake, alert oriented x 3. Not in distress. Respiratory: Bilateral vesicular breath sound. Cardiovascular: RRR, no murmur, no edema Vessels: no JVD or carotid bruit Chest: normal inspection of chest Abdomen: Soft, nontender. Musculoskeletal: Superficial wound on anterior sandhu on right leg Neurologic: PERRL, EOMI, accommodation nl, no face palsy, no dysarthria CN's II- XI intact bilaterally and moves all extremities Psychiatric: A+Ox3, euthymic affect Results & Data Results & Data Vital Signs (Past 12 Hours) Vital Signs Temp Pulse Resp BP Pulse Ox O2 Del Method 12/07/24 09:13 63 20 106/50 L 95 Room Air 12/07/24 07:49 36.6 C 70 18 103/67 97 Room Air
[2024-12-07] MEDS: LACTULOSE SYRUP 20 GM/30 ML UDC PO ONE (15:35)
[2024-12-07] MEDS: WARFARIN SOD 2.5 MG TAB PO SCH (16:31)
[2024-12-07] MEDS: DOCUSATE SODIUM 100 MG CAP PO SCH (20:41)
[2024-12-08 08:23] LABS: Hematocrit (blood only) 40.8 % (42.0-52.0); Hemoglobin 12.8 g/dl (14.0-18.0); Mean Corpuscular Hemoglobin 26.2 pg (25.0-34.0); Mean Corpuscular Hgb Conc 31.4 g/dL (32.0-36.0); Mean Corpuscular Volume 83.4 fL (80.0-100.0); Mean Platelet Volume 10.7 fL (9.4-12.4); Platelet Count 242 K/uL (130-400); RDW Coefficient of Variation 18.2 % (11.5-14.5); RDW Standard Deviation 54.4 fL (36.4-46.3); Red Blood Count 4.89 M/uL (4.70-6.10); White Blood Count 11.76 K/ul (4.8-10.8)
[2024-12-08 08:34] LABS: BUN Creatinine Ratio 13.8 (10-20); Calcium 9.2 mg/dl (8.6-10.3); Magnesium 1.8 mg/dl (1.7-2.4); Potassium 4.4 mmol/L (3.5-5.1)
[2024-12-08] MEDS: POLYETHYLENE (MIRALAX) 17 GM PACK PO SCH (08:40)
[2024-12-08 08:41] LABS: INR 1.2 (0.9-1.1); Prothrombin Time 12.5 Seconds (9.0-12.0)
--- NOTE | 2024-12-08 10:41 | Pharmacy Report ---
Pharmacy Glycemic Short Note 2 - Date of Service December 08, 2024 - Glycemic Short BSG Results (Last 24 hours): 12/07/24 12/07/24 12/07/24 11:47 16:54 20:25 Glucose POC Glucose 110 H 266 H 145 H 12/08/24 12/08/24 07:56 07:58 Glucose 216 H POC Glucose 238 H OUTPATIENT ANTIDIABETIC REGIMEN: * Semglee 50 units HS- (taking scale) * glipizide * A1c 8.7% ASSESSMENT: 12/08: * BSGs [phone]/dL the last 24h. Received 55 units of basal and 81 units of bolus insulin yesterday. * Tolerating diet, continues on Zosyn. * Lantus HS scale increased slightly for tonight to 50/55/60 units depending on BSG. Continue same Novolog parameters for now. 12/07: * Stanton received 112 units of SC insulin yesterday (50 units basal + 62 units bolus) * Fasting BSG of 353 mg/dL. Unsure if this is true fasting. Current ordered dose of basal insulin has worked well for patient during past. Will schedule an additional 10 units for this morning and continue current basal scale. * Novolog parameters were tightened to CF/CR: 12/4 last evening due to persistent hyperglycemia. Today BSG corrected from 353 at breakfast to 110 mg/dL at lunch. Will resume previous parameters of CF/CR: 115/5 now that hyperglycemia has resolved. 12/06: * 54 y/o male admitted with possible urosepsis, currently being treated with ertapenem/vancomycin * Patient arrived to floor last PM, uncertain if patient had uncovered food, regular diet ordered * Received 50 units of lantus HS (~0000), BSG this morning in the 400s, potassium 2.5, will utilize SQ insulin for now given hypokalemia * BSG improved to 200 mg/dL with lunch, will continue current novolog parameters PLAN FOR INPATIENT GLYCEMIC CONTROL: * Hold outpatient oral diabetes medications * Basal insulin * Lantus 50-55-60 units SQ per scale depending on BSG * Bolus insulin * NovoLog per scale ACHS or Q6hrs while NPO * Goal Range: Low 110 mg/dL - High 140 mg/dL * Correction Factor: 15 mg/dL/unit * Nutritional / Prandial insulin per carb ratio of 1 unit per 5 grams CHO consumed
[2024-12-08] MEDS: HEPARIN SOD 5,000 UNIT/0.5 ML VIAL SQ SCH (14:08)
[2024-12-08] MEDS ORDERED: POLYETHYLENE (MIRALAX) 17 GM PACK PO PRN (14:49)
--- NOTE | 2024-12-08 14:52 | Hospitalist Progress Note ---
Date of Service December 08, 2024 Assessment & Plan (1) Complicated UTI (urinary tract infection): Plan Sepsis: Catheter-associated urinary tract infection: -as indicated by leukocytosis and tachycardia on arrival -likely 2/2 UTI, Urine culture growing Morganella morganii; sensitive to Zosyn and ciprofloxacin. Blood cultureno growth Ertapenem 12/04 --> switched to zosyn 12/06, c/w zosyn for now. Plan to switch over to ciprofloxacin at the time of the discharge to provide 7-day course. Status post Lloyd catheter exchange this admission. MAHAMED (acute kidney injury): Creatinine of 1.57 on admission, downtrended. Lasix resumed on December 06, 2024 Hypokalemia: Potassium of 2.4 on admission. continue replacement, currently on Kcl 40meq bid, monitor. Constipation: pt reports not moving bowels for 1-2 weeks at presentation, is m oving gas, has been eating greatly w/ no discomfort. will put him on jaci bowel regimen, hold for loose stool. Supratherapeutic INR: INR at presentation 3.5, resumed home warfarin 12/07, pt/inr in AM. Weakness: chronic, PT/OT ordered Osteoarthritis of right knee: voltaren cream. needs f/u outpatient for consideration of knee replacement Obesity hypoventilation syndrome: (HFpEF) heart failure with preserved ejection fraction: -Continue lasix Smoking: nicotine patch Chronic pain: ordered home medications Morbid obesity: would benefit from GLP-1 in outpatient setting Grief: patient struggling from recent of mother. pastoral care consult DM2 (diabetes mellitus, type 2): pharmacy consult. insulin protocol Full code dvt prophylaxis Coumadin Admission and Anticipated Discharge Date Admission Date: December 04, 2024 Subjective Patient seen and examined at bedside. Comfortable; not in distress. Reports that he is still fatigued and doesn't feel he is ready to go home today, he states he will speak to his tomorrow and will let me know. Pt is now moving bowels ok. Physical Exam Physical Exam: Constitutional: Awake, alert oriented x 3. Not in distress. Respiratory: Bilateral vesicular breath sound. Cardiovascular: RRR, no murmur, no edema Vessels: no JVD or carotid bruit Chest: normal inspection of chest Abdomen: Soft, nontender. Musculoskeletal: Superficial wound on anterior sandhu on right leg Neurologic: PERRL, EOMI, accommodation nl, no face palsy, no dysarthria CN's II- XI intact bilaterally and moves all extremities Psychiatric: A+Ox3, euthymic affect Results & Data Results & Data Vital Signs (Past 12 Hours) Vital Signs Temp Pulse Resp BP Pulse Ox O2 Del Method 12/08/24 08:00 Room Air 12/08/24 07:18 36.6 C 69 20 125/83 94 Room Air
[2024-12-08] MEDS: WARFARIN SOD 5 MG TAB PO SCH (17:01)
[2024-12-08] MEDS ORDERED: ACETAMINOPHEN 325 MG TAB PO PRN (17:46)
[2024-12-08] MEDS ORDERED: DICLOFENAC SOD 1% GEL 100 GM TUBE EXT PRN (23:09)
[2024-12-09 07:18] LABS: INR 1.1 (0.9-1.1); Prothrombin Time 11.4 Seconds (9.0-12.0)
[2024-12-09 07:58] VITALS: RESP 18
[2024-12-09 08:09] LABS: BUN Creatinine Ratio 17.2 (10-20); Calcium 9.2 mg/dl (8.6-10.3); Creatinine Clr Calc Pharmacy 146.5 ml/min; Potassium 4.3 mmol/L (3.5-5.1)
[2024-12-09] MEDS: WARFARIN SOD 3 MG TAB PO ONE (10:36)
[2024-12-09] MEDS: LOPERAMIDE HCL 2 MG CAP PO PRN (10:37)
[2024-12-09] MEDS: ONDANSETRON INJ 2 MG/ML 2 ML VIAL IV PRN (11:38)
--- NOTE | 2024-12-09 15:36 | Hospitalist Progress Note ---
Date of Service December 09, 2024 Assessment & Plan (1) Complicated UTI (urinary tract infection): Plan Sepsis: Catheter-associated urinary tract infection: -as indicated by leukocytosis and tachycardia on arrival -likely 2/2 UTI, Urine culture growing Morganella morganii; sensitive to Zosyn and ciprofloxacin. Blood cultureno growth Ertapenem 12/04 --> switched to zosyn 12/06, --to cipro 12/09. provide 7-day course. Status post Lloyd catheter exchange this admission. MAHAMED (acute kidney injury): Creatinine of 1.57 on admission, downtrended. Lasix resumed on December 06, 2024 Hypokalemia: Potassium of 2.4 on admission. continue replacement, currently on Kcl 40meq bid, monitor. Constipation: pt reports not moving bowels for 1-2 weeks at presentation, is m oving gas, has been eating greatly w/ no discomfort. will put him on jaci bowel regimen, hold for loose stool. Supratherapeutic INR: INR at presentation 3.5, resumed home warfarin 12/07, pt/ inr in AM. Weakness: chronic, PT/OT ordered Osteoarthritis of right knee: voltaren cream. needs f/u outpatient for consideration of knee replacement Obesity hypoventilation syndrome: (HFpEF) heart failure with preserved ejection fraction: -Continue lasix Smoking: nicotine patch Chronic pain: ordered home medications Morbid obesity: would benefit from GLP-1 in outpatient setting Grief: patient struggling from recent of mother. pastoral care consult DM2 (diabetes mellitus, type 2): pharmacy consult. insulin protocol Full code dvt prophylaxis Coumadin Admission and Anticipated Discharge Date Admission Date: December 04, 2024 Subjective Patient seen and examined at bedside. Comfortable; not in distress. Reports multiple runny stools (about 4 today). Per RN, 1 loose stool was noted in AM. Pt states he would like to go home rj as he has multiple runny stools today. will send stool for c diff. Physical Exam Physical Exam: Constitutional: Awake, alert oriented x 3. Not in distress. Respiratory: Bilateral vesicular breath sound. Cardiovascular: RRR, no murmur, no edema Vessels: no JVD or carotid bruit Chest: normal inspection of chest Abdomen: Soft, nontender. Musculoskeletal: Superficial wound on anterior sandhu on right leg Neurologic: PERRL, EOMI, accommodation nl, no face palsy, no dysarthria CN's II- XI intact bilaterally and moves all extremities Psychiatric: A+Ox3, euthymic affect Results & Data Results & Data Vital Signs (Past 12 Hours) Vital Signs Temp Pulse Resp BP Pulse Ox O2 Del Method 12/09/24 08:00 Room Air 12/09/24 07:57 36.4 C L 59 L 18 159/78 H 99 Room Air
[2024-12-09] MEDS: CIPROFLOXACIN 500 MG TAB PO SCH (20:31)
[2024-12-09] MEDS: LANTUS PER UNIT CHARGE SQ SCH (20:57)
[2024-12-10 07:26] LABS: BUN Creatinine Ratio 17.4 (10-20); Calcium 9.5 mg/dl (8.6-10.3); Potassium 4.5 mmol/L (3.5-5.1)
[2024-12-10 07:40] LABS: INR 1.1 (0.9-1.1); Prothrombin Time 12.1 Seconds (9.0-12.0)
[2024-12-10 08:13] VITALS: PULSE 53; TEMP 97.9; O2SAT 95
[2024-12-10] MEDS: WARFARIN SOD 5 MG TAB PO ONE (10:29)
[2024-12-10] MEDS ORDERED: ONDANSETRON 4 MG OD TAB PO PRN (12:36)
[2024-12-10 13:26] VITALS: BP 122/66
[2024-12-10] MEDS ORDERED: Nursing to Pharmacy Communication SCH (13:30)
--- NOTE | 2024-12-10 13:42 | Discharge Summary ---
Date of Service December 10, 2024 Admission HPI Per Admitting Provider Stanton Milner is a medically complex 54y/o M with extensive PMHx of morbid obesity, 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, allergic rhinitis, DMII, diabetic peripheral neuropathy, diabetic retinopathy of both eyes, chronic diastolic heart failure, HTN, HLD, history of PE anticoagulated on warfarin, venous insufficiency, history of SVT, chronic RBBB, CAD/STEMI per records, GERD without esophagitis, chronic pain of right knee, chronic pain syndrome on buprenorphine, iron deficiency anemia, tobacco use disorder, chronic indwelling Fontaine catheter, prior subdural hematoma/subarachnoid hemorrhage per records, history of MRSA/VRE infection, depression with anxiety, mood disorder who presented to the ED via EMS with complaints of chest pain and possible UTI with mild confusion. History obtained from the patient, discussion with ED provider and associated chart review. Patient seen and examined at bedside. Patient states he is pretty sure he has had a UTI for 2 weeks. States that he has been feeling confused, and some pain in his sides. States he has chronic pain in his right knee. He has been having issues with his chronic fontaine, and per patient needs a urologic surgery to fix his constant incontinence. Patients mother recently and he has been struggling with grief. He has issues getting to his appointments with transportation which makes following up difficult. Had bleeding from his right ear today that resolved on its own. Current tobacco use, no alcohol use, no drug use, full code. Admission Exam Per Admitting Provider Gen: A&O 3 NAD HEENT: perforated ear drum, right, crusted blood, no active bleed Neck: Supple, full range of motion, no observable masses, No meningeal sign. Lungs: No Respiratory distress. CV: RRR, no edema. Abdomen: Soft, nondistended, No rebound tenderness. MSK: tenderness to palpation right knee, right anterior sandhu wound with purulent drainage Skin: No rashes, petechiae, lesions. Neuro: Normal Gait, Grossly intact. Psych: suffering from grief, sadness Principal Diagnosis Sepsis: Catheter-associated urinary tract infection: Subtherapeutic INR MAHAMED, resolved Discharge Exam Constitutional: Awake, alert oriented x 3. Not in distress. Respiratory: Bilateral vesicular breath sound. Cardiovascular: RRR, no murmur, no edema Vessels: no JVD or carotid bruit Chest: normal inspection of chest Abdomen: Soft, nontender. Musculoskeletal: Superficial wound on anterior sandhu on right leg Neurologic: PERRL, EOMI, accommodation nl, no face palsy, no dysarthria CN's II- XI intact bilaterally and moves all extremities Psychiatric: A+Ox3, euthymic affect Discharge Data Allergies Allergy/AdvReac Type Severity Reaction Status Date / Time Iodinated Contrast Media Allergy Severe Itching, Verified 03/14/24 15:50 hypoxia, bronchospasm cefepime Allergy Intermediate rash Verified 03/14/24 15:43 daptomycin Allergy Intermediate rash Verified 03/14/24 15:43 fentanyl Allergy Intermediate RASH/HIVES/SKIN Verified 03/14/24 15:43 REDNESS acetaminophen [From Tylenol] AdvReac Intermediate IRRITATES Verified 03/14/24 15:43 & UPSET STOMACH ibuprofen AdvReac Intermediate Nausea Verified 03/14/24 15:43 naloxone AdvReac Intermediate extremely Verified 03/14/24 15:43 sick valproic acid AdvReac Intermediate PANCREATITS Verified 03/14/24 15:43 Consultations 12/04/24 16:58 ED Decision to Admit Stat 12/04/24 21:56 Consult Urology Routine Hospital Course (1) Complicated UTI (urinary tract infection): Plan Sepsis: Catheter-associated urinary tract infection: -as indicated by leukocytosis and tachycardia on arrival -likely 2/2 UTI, Urine culture growing Morganella morganii; sensitive to Zosyn and ciprofloxacin. Blood cultureno growth Ertapenem 12/04 --> switched to zosyn 12/06, --to cipro 12/09. provide 7-day course. Status post Fontaine catheter exchange this admission. MAHAMED (acute kidney injury): Creatinine of 1.57 on admission, downtrended. Lasix resumed on December 06, 2024 Hypokalemia: Potassium of 2.4 on admission. continue replacement, currently on Kcl 40meq bid, will do 40 meq AM/20 meq PM on DC. Constipation: pt reports not moving bowels for 1-2 weeks at presentation, resolved, now has 1-2 loose stools a day. Supratherapeutic INR: INR at presentation 3.5, resumed home warfarin 12/07, pt/inr 1.1 despite 3 day of coumadin, will dc him on lovenox bridge and advised pt to f/u w/ Coumadin clinic in 2 days of discharge for appropriate blood thinner monitoring/management. Weakness: chronic, PT/OT ordered Osteoarthritis of right knee: voltaren cream. needs f/u outpatient for consideration of knee replacement Obesity hypoventilation syndrome: (HFpEF) heart failure with preserved ejection fraction: -Continue lasix Smoking: nicotine patch Chronic pain: ordered home medications Morbid obesity: would benefit from GLP-1 in outpatient setting Grief: patient struggling from recent of mother. pastoral care consult DM2 (diabetes mellitus, type 2): pharmacy consult. insulin protocol Full code dvt prophylaxis Coumadin Patient stated that he would like to go home today and now. Patient is being discharged with following instructions at the point of discharge: Follow-up with your primary care physician within a week time and likely you will need labs CBC/CMP/magnesium/phosphorus. You were evaluated for catheter associated urinary tract infection, you will be discharged on oral antibiotic to complete total of 7-day course. Continue your Fontaine catheter care as prior. Follow up with your urology as prior. Since you have chronic elevation in your white blood cell count, I recommend that you establish with hematology as an outpatient. Coordinate with your PCP office to set up the referral. Since your PT/INR number was subtherapeutic, you will be discharged on Lovenox twice a day for next 2 days. It is very important that you follow-up with coumadin clinic in 2 days and further decision on Coumadin dose and whether to continue Lovenox based on those results. Take your medications as prescribed. Please make sure that you are able to get your medications today by calling your pharmacy before you leave the hospital so that your treatment continuity is not broken. Home Health Attestation I certify that this patient is under my care and that I, or a physicians hermes tapia working with me, had a face to-face encounter that meets the home health [id number] encounter requirements with this patient. The encounter with the patient was in whole, or in part, for the following medical condition, which is the primary reason for home health care (list medical condition): I certify that, based on my findings, the following services are medically necessary home health services: My clinical findings support the need for the above services because: Further, I certify that my clinical findings support that this patient is homebound (i.e. absences from home require considerable and taxing effort and are for medical reasons or jewish services or infrequently or of short duration when for other reasons) because: Certification for Home Health Services: Based on the above findings, I certify that this patient is confined to the home and needs intermittent shelter care, physical therapy and/or speech therapy or continues to need occupational therapy. The patient is under my care, and I have initiated the establishment of the plan of care. This patient will be followed by a physician who will periodically review the plan of care. Total Time Total Time Spent Total Time Spent (In Minutes): 45 Discharge Plan Discharge Items Patient Disposition: Home - Self-Care Reason For Visit: UROSEPSIS Discharge Diagnosis: Sepsis: Catheter-associated urinary tract infection: Subtherapeutic INR MAHAMED, resolved Activity: Resume your previous activity Non-emergency contact: Primary Care Provider Call non-emergency contact if: you have any medication questions and your symptoms worsen Follow-up/Referrals: PCP,NO [Primary Care Provider] - Diet: Carb Consistent or DM2 Fluids: 1800ml (7 cups) Addtl Attending Provider Instructions: Follow-up with your primary care physician within a week time and likely you will need labs CBC/CMP/magnesium/phosphorus. You were evaluated for catheter associated urinary tract infection, you will be discharged on oral antibiotic to complete total of 7-day course. Continue your Fontaine catheter care as prior. Follow up with your urology as prior. Since you have chronic elevation in your white blood cell count, I recommend that you establish with hematology as an outpatient. Coordinate with your PCP office to set up the referral. Since your PT/INR number was subtherapeutic, you will be discharged on Lovenox twice a day for next 2 days. It is very important that you follow-up with Coumadin clinic in 2 days and further decision on Coumadin dose and whether to continue Lovenox based on those results. Take your medications as prescribed. Please make sure that you are able to get your medications today by calling your pharmacy before you leave the hospital so that your treatment continuity is not broken. Pending Studies at Discharge: No Stand-Alone Forms: [facility], Smoking Cessation Medications and DC Order Prescriptions: New ciprofloxacin HCl 500 mg Tablet 500 mg PO BID 2 Days Qty: 4 0RF loperamide 2 mg Capsule 2 mg PO Q4H PRN (Reason: loose stool) Qty: 10 0RF enoxaparin [Lovenox] 100 mg/mL syringe 180 mg subcut BID 2 Days Qty: 7.2 0RF Continued gabapentin 800 mg tablet 800 mg PO TID guaifenesin [Mucinex] 600 mg Tablet Extended Release 12hr 1,200 mg PO Q12 PRN (Reason: congestion) Qty: 30 0RF warfarin 4 mg tablet 4 mg PO UD Qty: 30 0RF Rx Instructions: per pt, and he thinks 2.5mg; rest of days are 5mg? pt wasn't real clear on his dosing schedule. Last filled 10/19 30 day supply insulin glargine-yfgn [Semglee(insulin glarg-yfgn)Pen] 100 unit/mL (3 mL) insulin pen 50 unit SUBCUT UD Rx Instructions: per pt, he does sort of a sliding scale. last filled 11/02 30 day supply furosemide 80 mg tablet 40 mg PO BID17 cyclobenzaprine 10 mg tablet 10 mg PO BID PRN (Reason: muscle spasms) fluticasone propion-salmeterol 250-50 mcg/dose blister with device 1 inh INHALATION BID atorvastatin 80 mg tablet 80 mg PO PM metoprolol succinate 50 mg tablet extended release 24 hr 75 mg PO BID ondansetron HCl 4 mg tablet 4 mg PO TID PRN (Reason: Nausea And Vomiting) glipizide 10 mg tablet 10 mg PO BID Rx Instructions: one tab bid 30minutes before meals spironolactone 25 mg tablet 25 mg PO QAM isosorbide dinitrate 30 mg tablet 30 mg PO UD Rx Instructions: 30 mg po qam. last filled 10/04 30 day supply famotidine 20 mg tablet 20 mg PO HS magnesium oxide 400 mg (241.3 mg magnesium) tablet 400 mg PO QAM ferrous sulfate 325 mg (65 mg iron) tablet 325 mg PO QAM budesonide 0.5 mg/2 mL suspension for nebulization 0.5 mg inhalation UD Rx Instructions: 0.5 mg inhalation bid. No fill history available folic acid 1 mg tablet 1 mg PO UD Rx Instructions: 1 mg po qam. last filled 08/10 90 day supply albuterol sulfate 90 mcg/actuation HFA aerosol inhaler 2 inh INHALATION Q4H PRN (Reason: Shortness Of Breath Or Wheezing) finasteride 5 mg tablet 5 mg PO QAM buprenorphine HCl 8 mg tablet, sublingual 8 mg SUBLINGUAL UD Rx Instructions: (take 8mg in the morning,at 1400 take 4 mg then at night take 8mg) duloxetine 60 mg capsule,delayed release(DR/EC) 60 mg PO QAM tamsulosin 0.4 mg capsule 0.4 mg PO UD Rx Instructions: 0.4 mg po qam. No fill history available, per pt he's had no changes. oxycodone 10 mg tablet 10 mg PO BID PRN (Reason: Pain, Severe) aspirin 81 mg Tablet,Delayed Release (Dr/Ec) 81 mg PO QAM Lactobacillus acidophilus 1 billion cell Tablet 1,000 mmu cells PO QAM pantoprazole 40 mg Tablet,Delayed Release (Dr/Ec) 40 mg PO BID Qty: 60 0RF Changed potassium chloride 20 mEq tablet,ER particles/crystals 40 meq PO UD Qty: 90 0RF Rx Instructions: 2 tabs in AM and 1 tab in PM Held docusate sodium [Colace] 100 mg Capsule 100 mg PO BID Hold Instructions: Resume on 12/13/24. Discontinued potassium chloride 20 mEq tablet,ER particles/crystals 20 meq PO UD Rx Instructions: 20 meq po hs. Fill history date 10/12 90 day supply has directions of 20 meq po bid Discharge Orders: Discharge Order (Routine); Ordered 12/10/24 Ordered By: Henrietta Gomez Admission Data Admit Date/Time: 12/04/24 18:13 Attending Provider: Henrietta Gomez Admit Provider: Antonio Thompson Primary Care Provider: PCP,NO Other Providers: Antonio Thompson; Luan Barth
[2024-12-10] MEDS ORDERED: LANTUS PER UNIT CHARGE SQ SCH (21:00)
== END 2024-12-10 14:04 | disposition home or self-care (01) | DRG 698 ==
LOC: ED 14:59 → INTOOBSV 18:13 → EDINP 18:13 → SUATTDRO 18:13 → 3W 21:21

== ENCOUNTER 2025-03-13 13:17 | Inpatient (IN) ==
--- NOTE | 2025-03-13 13:33 | Emergency Department Note ---
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 Plan Visit Data Chief Complaint: Altered Mental Status ED Provider: Bialas,Owen A. Discharge Problem: Encephalopathy Patient Disposition: Admitted As Inpatient Condition: Fair Forms Stand Alone Forms: My [facility], Suicide Prevention Resources Prescriptions Prescriptions: No Action furosemide 80 mg tablet 40 mg PO BID17 potassium chloride 20 mEq tablet,ER particles/crystals 40 meq PO UD Qty: 90 0RF Rx Instructions: original:40 meq po ud: 2 tabs in AM and 1 tab in PM 03/13-per fill history 01/18/25 90 day supply #180 directions are 1 tab po bid cyclobenzaprine 10 mg tablet 10 mg PO BID PRN (Reason: muscle spasms) fluticasone propion-salmeterol 250-50 mcg/dose blister with device 1 inh INHALATION BID atorvastatin 80 mg tablet 80 mg PO PM metoprolol succinate 50 mg tablet extended release 24 hr 75 mg PO BID ondansetron HCl 4 mg tablet 4 mg PO TID PRN (Reason: Nausea And Vomiting) glipizide 10 mg tablet 10 mg PO BID Rx Instructions: one tab bid 30minutes before meals spironolactone 25 mg tablet 25 mg PO QAM isosorbide dinitrate 30 mg tablet 30 mg PO QAM famotidine 20 mg tablet 20 mg PO HS magnesium oxide 400 mg (241.3 mg magnesium) tablet 400 mg PO QAM ferrous sulfate 325 mg (65 mg iron) tablet 325 mg PO QAM folic acid 1 mg tablet 1 mg PO QAM albuterol sulfate 90 mcg/actuation HFA aerosol inhaler 2 inh INHALATION Q4H PRN (Reason: Shortness Of Breath Or Wheezing) finasteride 5 mg tablet 5 mg PO QAM buprenorphine HCl 8 mg tablet, sublingual 8 mg SUBLINGUAL DIRECTED Rx Instructions: (take 8mg in the morning,at 1400 take 4 mg then at night take 8mg) duloxetine 60 mg capsule,delayed release(DR/EC) 60 mg PO QAM tamsulosin 0.4 mg capsule 0.4 mg PO DAILY oxycodone 10 mg tablet 10 mg PO BID PRN (Reason: Pain, Severe) aspirin 81 mg Tablet,Delayed Release (Dr/Ec) 81 mg PO QAM pantoprazole 40 mg Tablet,Delayed Release (Dr/Ec) 40 mg PO BID Qty: 60 0RF sennosides [senna] 8.6 mg Tablet 8.6 mg PO DAILY PRN (Reason: Constipation) ipratropium-albuterol 0.5 mg-3 mg(2.5 mg base)/3 mL Solution For Nebulization 3 ml INHALATION TID dextromethorphan-guaifenesin 10-100 mg/5 mL Syrup 5 ml PO Q6H PRN (Reason: Cough) Incruse Ellipta 62.5 mcg/actuation Blister With Device 1 inh INHALATION DAILY fluticasone propionate 93 mcg/actuation Aerosol Breath Activated 2 spray INTRANASAL DAILY Rx Instructions: into each nostril insulin glargine U-300 conc [Toujeo Max U-300 SoloStar] 300 unit/mL (3 mL) insulin pen 50 unit SUBCUT HS gabapentin 800 mg tablet 800 mg PO TID Qty: 60 0RF budesonide 0.5 mg/2 mL suspension for nebulization 0.5 mg inhalation BID Qty: 60 0RF warfarin 4 mg tablet 5 mg PO UD Rx Instructions: original: PT STATES "5 MG EVERY DAY EXCEPT TUESDAYS, TAKES 2.5 MG". last filled 03/07/25 90 day supply #90 Referrals Referrals: Kehinde Mc MD [Primary Care Provider] -
[2025-03-13 13:45] LABS: Basophils # (auto) 0.06 K/uL (0.00-0.20); Basophils % (auto) 0.5 %; Eosinophils # (auto) 0.26 K/uL (0.00-0.50); Eosinophils % (auto) 2.1 %; Hematocrit (blood only) 41.3 % (42.0-52.0); Hemoglobin 13.8 g/dl (14.0-18.0); Immature Granulocytes % (auto) 0.8 %; Lymphocytes # (auto) 2.75 K/uL (1.20-3.40); Lymphocytes % (auto) 22.4 %; Mean Corpuscular Hemoglobin 26.7 pg (25.0-34.0); Mean Corpuscular Hgb Conc 33.4 g/dL (32.0-36.0); Mean Platelet Volume 10.6 fL (9.4-12.4); Monocytes # (auto) 0.66 K/uL (0.11-0.59); Monocytes % (auto) 5.4 %; Neutrophils # (auto) 8.42 K/uL (1.40-6.50); Neutrophils % (auto) 68.8 %; Platelet Count 252 K/uL (130-400); RDW Coefficient of Variation 18.6 % (11.5-14.5); RDW Standard Deviation 51.5 fL (36.4-46.3); Red Blood Count 5.16 M/uL (4.70-6.10); White Blood Count 12.25 K/ul (4.8-10.8)
[2025-03-13 14:02] LABS: Albumin Globulin Ratio 0.9 (0.9-2); Albumin Level 2.9 gm/dl (3.4-5.0); BUN Creatinine Ratio 7.9 (10-20); Bilirubin,Total 0.8 mg/dl (0.2-1.0); Calcium 8.4 mg/dl (8.6-10.3); Globulin 3.3 gm/dl (2.5-4.0); Total Protein 6.2 gm/dl (6.0-8.3)
[2025-03-13 14:09] LABS: Troponin I High Sensitivity 6.2 pg/ml (0-20)
[2025-03-13 14:11] LABS: Base Excess VBG 13.3 mEq/L; HCO3 VBG 38 mmol/L; Oxygen Saturation VBG < 60.0 %; PCO2 VBG 48 mmHg (38-50); PO2 VBG 22 mmHg; pH VBG 7.51 (7.36-7.41)
[2025-03-13 14:17] LABS: Thyroid Stimulating Hormone 1.565 uIu/ml (0.300-4.500)
[2025-03-13 14:19] LABS: INR 4.9 (0.9-1.1); Prothrombin Time 46.1 Seconds (9.0-12.0)
[2025-03-13 14:59] LABS: Adenovirus PCR Not Detected (NotDetected); Bordetella parapertussis PCR Not Detected (NotDetected); Bordetella pertussis PCR Not Detected (NotDetected); Chlamydia pneumoniae PCR Not Detected (NotDetected); Coronavirus 229E PCR Not Detected (NotDetected); Coronavirus CoV-2 (COVID19)PCR Not Detected (NotDetected); Coronavirus HKU1 PCR Not Detected (NotDetected); Coronavirus NL63 PCR Not Detected (NotDetected); Coronavirus OC43PCR Not Detected (NotDetected); Human Metapneumovirus PCR Not Detected (NotDetected); Influenza A PCR Not Detected (NotDetected); Influenza B PCR Not Detected (NotDetected); Mycoplasma pneumoniae PCR Not Detected (NotDetected); Parainfluenza Virus 1 PCR Not Detected (NotDetected); Parainfluenza Virus 2 PCR Not Detected (NotDetected); Parainfluenza Virus 3 PCR Not Detected (NotDetected); Parainfluenza Virus 4 PCR Not Detected (NotDetected); Respiratory Syncytial VirusPCR Not Detected (NotDetected); Rhinovirus/Enterovirus PCR Not Detected (NotDetected)
--- NOTE | 2025-03-13 15:35 | XRay Report ---
XR chest 1V portable CLINICAL HISTORY: weakness COMPARISON STUDY: 02/06/2025 FINDINGS: Stable mild cardiomegaly without pulmonary vascular congestion. Inspiration is shallow. No effusion, consolidation, or pneumothorax. IMPRESSION: No acute findings. ACT 112: Negative or not required by law. Electronically signed by: Yvon Wilkerson M.D. 03/13/2025 3:34 PM
--- NOTE | 2025-03-13 15:35 | CT Scan Report ---
CT head/brain wo con CLINICAL HISTORY: 54 years-old Male with AMS. Acutely altered mental status TECHNIQUE: Multiple axial CT images of the head were obtained without contrast. A dose lowering tech nique was utilized adhering to the principles of ALARA. CT DOSE: 1719.9 mGy.cm COMPARISON: October 11, 2024 FINDINGS: No acute intracranial hemorrhage, midline shift, intracranial mass, hydrocephalus, territorial ischem ia or abnormal extra-axial collection. Motion degraded exam. Involutional changes redemonstrated. The calvarium is intact. Mild to moderate mucosal thickening of the paranasal sinuses. Mastoid air c ells are clear. IMPRESSION: Motion degraded exam. No acute intracranial abnormality identified on this limited study . ACT 112: Negative or not required by law. The above report was generated using voice recognition software. It may contain grammatical, syntax o r spelling errors. Electronically signed by: Shelton Apodaca M.D. 03/13/2025 3:34 PM
[2025-03-13 16:01] LABS: Appearance Urine Cloudy (Clear); Bacteria Urine Automated 3+ (None Seen); Bilirubin Urine Negative (Negative); Blood Urine 3+ (Negative); Color Urine Orange; Glucose Urine UA Negative (Negative); Ketones Urine Trace (Negative); Leukocyte Esterase Urine 3+ (Negative); Nitrite Urine Negative (Negative); Protein Urine 3+ (Negative); RBC Urine Automated >20 /hpf (0-2); Urobilinogen Urine Positive (Negative); WBC Urine Automated >50 /hpf (0-5); pH Urine >= 9.0 (4.5-7.5)
[2025-03-13] MEDS: SODIUM CHLORIDE 0.9% 500 ML IV ONE (16:13)
[2025-03-13] MEDS: CEFEPIME 2000MG 2,000 MG/20 ML SYR IV STA (16:36)
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
[2025-03-13] MEDS: POTASSIUM CHLORIDE CRTAB 20 MEQ TABCR PO STA (20:41)
[2025-03-13] MEDS ORDERED: PHARMACY GLYCEMIC MGMT CONSULT PRN ×2 (20:45→22:31)
[2025-03-13] MEDS ORDERED: CARBOHYDRATES FOR HYPOGLYCEMIA PO PRN ×2 (21:45→22:31)
[2025-03-13] MEDS ORDERED: DEXTROSE 50% 50 ML SYRINGE IV PRN ×2 (21:45→22:31)
[2025-03-13] MEDS ORDERED: GLUCOSE 40% GEL 15 GM TUBE PO PRN ×2 (21:45→22:31)
[2025-03-13] MEDS ORDERED: GLUCOSE 10 TAB/TUBE PO PRN ×2 (21:45→22:31)
[2025-03-13] MEDS ORDERED: GLUCAGON FOR INJ 1 MG VIAL SQ PRN ×2 (21:45→22:31)
[2025-03-13] MEDS: INSULIN ASPART PER UNIT CHARGE SC SCH (21:46)
[2025-03-13] MEDS ORDERED: ALBUTEROL HFA 8 GM INHALER INH PRN (22:31)
[2025-03-13] MEDS ORDERED: INSULIN ASPART PER UNIT CHARGE SC SCH (22:31)
[2025-03-13] MEDS ORDERED: ACETAMINOPHEN 325 MG TAB PO PRN (22:31)
[2025-03-13] MEDS: ALBUT/IPRATROP 3MG/0.5MG NEB 3 ML VIAL INH SCH (22:51)
[2025-03-13] MEDS: BUDESONIDE 0.5 MG/2 ML VIAL (PULMICORT) INH SCH (22:51)
[2025-03-13] MEDS: LANTUS PER UNIT CHARGE SC SCH (22:58)
[2025-03-14] MEDS: FAMOTIDINE 20 MG TAB PO SCH (00:03)
[2025-03-14] MEDS: PANTOprazole 40 MG TAB PO SCH (00:04)
[2025-03-14] MEDS: METOPROLOL SUCC 25MG EXT REL TAB PO SCH (00:05)
[2025-03-14] MEDS: ATORVASTATIN 40 MG TAB PO SCH (00:07)
[2025-03-14] MEDS: GABAPENTIN 800 MG TAB PO SCH (00:08)
[2025-03-14] MEDS: POTASSIUM CHLORIDE CRTAB 20 MEQ TABCR PO SCH (00:14)
[2025-03-14] MEDS: CEFEPIME 2000MG 2,000 MG/20 ML SYR IV SCH ×2 (00:17→21:40)
--- NOTE | 2025-03-14 00:28 | Communication Note ---
Date of Service: March 14, 2025 Patient noted to be lethargic. Admitted earlier for altered mental status/UTI status post cefepime Rx at the ER. BSG 170s AP Persistent encephalopathy Complicated UTI currently on cefepime Rx (hx MDR UTI, cefepime resistant Proteus, history of VRE on review of records) Home medications contributory Follow urine CS Zerbaxa in place of cefepime Zyvox 1 dose for now given history of VRE Hold maintenance gabapentin for now. Hold Subutex for sedation confusion
[2025-03-14] MEDS: buprenorphine HCL 8 MG SUBL SL SCH (00:32)
[2025-03-14] MEDS: CEFTOLOZANE/TAZOBACTAM 3,000 MG in DEXTROSE 5% 100 ML IV SCH (05:42)
[2025-03-14] MEDS: LINEZOLID 600 MG/300 ML BAG IV ONE (05:43)
[2025-03-14 05:54] LABS: Hematocrit (blood only) 40.1 % (42.0-52.0); Hemoglobin 13.5 g/dl (14.0-18.0); Mean Corpuscular Hemoglobin 26.9 pg (25.0-34.0); Mean Corpuscular Hgb Conc 33.7 g/dL (32.0-36.0); Mean Corpuscular Volume 79.9 fL (80.0-100.0); Mean Platelet Volume 10.4 fL (9.4-12.4); Platelet Count 240 K/uL (130-400); RDW Standard Deviation 52.7 fL (36.4-46.3); Red Blood Count 5.02 M/uL (4.70-6.10)
[2025-03-14] MEDS: INSULIN ASPART PER UNIT CHARGE SC SCH ×2 (06:00→12:51)
[2025-03-14 06:12] LABS: BUN Creatinine Ratio 8.1 (10-20); Calcium 8.1 mg/dl (8.6-10.3); Creatinine Clr Calc Pharmacy 193.3 ml/min; Potassium 2.9 mmol/L (3.5-5.1)
[2025-03-14 06:16] LABS: Amphetamines+Metham, Urine Neg (Neg); Barbiturates, Urine Neg (Neg); Benzodiazepine, Urine Neg (Neg); Cocaine, Urine Neg (Neg); Fentanyl, Urine Neg (Neg); MDMA (Ecstacy), Urine Neg (Neg); Marijuana, Urine Pos (Neg); Methadone, Urine Neg (Neg); Opiate, Urine Neg (Neg); Phencyclidine, Urine Neg (Neg)
[2025-03-14 06:27] LABS: INR 3.6 (0.9-1.1); Prothrombin Time 34.5 Seconds (9.0-12.0)
[2025-03-14 07:15] LABS: Estimated Average Glucose 243 mg/dl; Hemoglobin A1C 10.1 % (4.5-5.6)
[2025-03-14] MEDS ORDERED: DULoxetine HCL 60 MG CAP PO SCH (09:00)
[2025-03-14 09:09] LABS: Magnesium 1.4 mg/dl (1.7-2.4)
[2025-03-14] MEDS: FOLIC ACID 1 MG TAB PO SCH (10:04)
[2025-03-14] MEDS: MAGNESIUM OXIDE 400 MG TAB PO SCH (10:04)
[2025-03-14] MEDS: FINASTERIDE 5 MG TAB PO SCH (10:04)
[2025-03-14] MEDS: FUROSEMIDE 40 MG TAB PO SCH (10:04)
[2025-03-14] MEDS: ASPIRIN 81 MG ECTAB PO SCH (10:05)
[2025-03-14] MEDS: TAMSULOSIN HCL 0.4 MG CAP PO SCH (10:05)
[2025-03-14] MEDS: SENNA 8.6 MG TAB PO PRN (10:05)
[2025-03-14] MEDS: SPIRONOLACTONE 25 MG TAB PO SCH (10:05)
[2025-03-14] MEDS: NICOTINE 21 MG/24 HR TDSY TD SCH (10:06)
[2025-03-14] MEDS: ISOSORBIDE DINITRATE 20 MG TAB PO SCH (10:06)
[2025-03-14] MEDS: FLUTICASONE PROPIONATE NA SPR 16 GM BTL SCH (10:07)
[2025-03-14] MEDS: FLUTICASONE/VILANTEROL 100/25MCG 14 PUFFS/INHALER INH SCH (10:07)
[2025-03-14] MEDS: FERROUS SULFATE 325 MG TAB PO SCH (10:08)
[2025-03-14] MEDS: UMECLIDINIUM BROMIDE 62.5MCG/BLISTER 7 PUFFS/INHALER INH SCH (10:08)
--- NOTE | 2025-03-14 11:29 | Pharmacy Report ---
Pharmacy Glycemic Short Note 2 - Date of Service March 14, 2025 - Glycemic Short BSG Results (Last 24 hours): 03/13/25 03/13/25 03/13/25 13:29 14:10 21:32 Glucose 251 H POC Glucose 241 H 210 H 03/13/25 03/14/25 03/14/25 22:33 00:34 05:22 Glucose 150 H POC Glucose 200 H 175 H 03/14/25 03/14/25 05:54 08:11 Glucose POC Glucose 156 H 177 H OUTPATIENT ANTIDIABETIC REGIMEN: * Toujeo 50 units SQ HS * glipizide 10mg PO BID * HbA1c 10.1% (03/14/25), 8.7% (12/06/24) ASSESSMENT: * Stanton is a 54 year old male admitted with UTI and a history of T2DM. Pharmacy is consulted for glycemic management while inpatient. Stanton is well known to the glycemic service from previous admissions. * Fasting BSG this AM acceptable, Lantus dose reduced yesterday evening per therapeutic conversion from Toujeo, will continue home dosage of Lantus tonight. * NovoLog at parameters from previous admissions. He is receiving Zerbaxa (mixed in D5W) for UTI treatment currently. PLAN FOR INPATIENT GLYCEMIC CONTROL: * Hold outpatient oral diabetes medications * Basal insulin * Lantus 50 units SQ HS * Bolus insulin * NovoLog per scale ACHS or Q6hrs while NPO * Goal Range: Low 110 mg/dL - High 140 mg/dL * Correction Factor: 20 mg/dL/unit * Nutritional / Prandial insulin per carb ratio of 1 unit per 5 grams CHO consumed
[2025-03-14] MEDS: oxyCODONE HCL IR 5 MG TAB (IMMEDIATE RELEASE) PO PRN (12:56)
[2025-03-14] MEDS: buprenorphine HCL 2 MG SUBL SL SCH (12:57)
[2025-03-14] MEDS: ONDANSETRON 4 MG OD TAB PO PRN (15:13)
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
[2025-03-14] MEDS: MAGNESIUM SULFATE / D5W 1 GM/100 ML BAG IV SCH (16:10)
--- NOTE | 2025-03-14 16:29 | Electrocardiogram Report ---
Test Reason : Blood Pressure : */* mmHG Vent. Rate : 77 BPM Atrial Rate : 77 BPM P-R Int : 144 ms QRS Dur : 106 ms QT Int : 396 ms P-R-T Axes : -28 27 48 degrees QTcB Int : 448 ms Normal sinus rhythm Nonspecific ST abnormality Abnormal ECG When compared with ECG of 06-Feb-2025 19:08, Criteria for Inferior infarct are no longer Present T wave inversion no longer evident in Inferior leads Confirmed by Christian Cunningham ([id number]) on 03/14/2025 4:29:00 PM Referred By: Confirmed By: Christian Cunningham
[2025-03-14] MEDS: LANTUS PER UNIT CHARGE SC SCH (21:39)
[2025-03-14] MEDS: PROMETHAZINE 12.5 MG/50.5 ML BAG IV PRN (21:44)
[2025-03-14] MEDS: CYCLOBENZAPRINE HCL 10 MG TAB PO PRN (23:53)
[2025-03-15] MEDS: DULoxetine HCL 60 MG CAP PO SCH (07:49)
[2025-03-15 07:57] LABS: INR 2.6 (0.9-1.1); Prothrombin Time 26.1 Seconds (9.0-12.0)
[2025-03-15 10:02] LABS: BUN Creatinine Ratio 8.5 (10-20); Calcium 8.3 mg/dl (8.6-10.3); Magnesium 1.8 mg/dl (1.7-2.4); Potassium 3.2 mmol/L (3.5-5.1)
[2025-03-15] MEDS: ADVANCED PROBIOTIC 625 MG CAPSULE PO SCH (10:43)
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
--- NOTE | 2025-03-15 12:50 | Pharmacy Report ---
Pharmacy Glycemic Short Note 2 - Date of Service March 15, 2025 - Glycemic Short BSG Results (Last 24 hours): 03/14/25 03/14/25 03/14/25 15:03 15:05 17:06 Glucose POC Glucose 254 H 248 H 205 H 03/14/25 03/15/25 03/15/25 20:58 06:55 07:41 Glucose 246 H POC Glucose 209 H 261 H 03/15/25 11:53 Glucose POC Glucose 239 H OUTPATIENT ANTIDIABETIC REGIMEN: * Toujeo 50 units SQ HS * glipizide 10mg PO BID * HbA1c 10.1% (03/14/25), 8.7% (12/06/24) ASSESSMENT: 03/15 * Stanton received a total of 84 units of insulin yesterday (50 units were basal and 34 units were bolus). BSGs were all above goal yesterday. * Fasting BSG was 261mg/dL this morning. Lantus was just increased to 50 units last evening so will not make further adjustments to that today. * Tightened correction factor of bolus insulin. * He continues on cefepime for a UTI. 03/14 * Stanton is a 54 year old male admitted with UTI and a history of T2DM. Pharmacy is consulted for glycemic management while inpatient. Stanton is well known to the glycemic service from previous admissions. * Fasting BSG this AM acceptable, Lantus dose reduced yesterday evening per therapeutic conversion from Toujeo, will continue home dosage of Lantus tonight. * NovoLog at parameters from previous admissions. He is receiving Zerbaxa (mixed in D5W) for UTI treatment currently. PLAN FOR INPATIENT GLYCEMIC CONTROL: * Hold outpatient oral diabetes medications * Basal insulin * Lantus 50 units SQ HS * Bolus insulin * NovoLog per scale ACHS or Q6hrs while NPO * Goal Range: Low 110 mg/dL - High 140 mg/dL * Correction Factor: 15 mg/dL/unit * Nutritional / Prandial insulin per carb ratio of 1 unit per 5 grams CHO consumed
[2025-03-15] MEDS: WARFARIN SOD 5 MG TAB PO SCH (16:02)
[2025-03-15] MEDS: POTASSIUM CHLORIDE 10 MEQ TABCR PO STA (16:02)
[2025-03-15] MEDS: MELATONIN 3 MG TAB PO PRN (21:27)
[2025-03-16 08:13] LABS: INR 2.3 (0.9-1.1)
[2025-03-16] MEDS ORDERED: PHARMACY GLYCEMIC MGMT CONSULT PRN (08:23)
[2025-03-16 10:41] LABS: BUN Creatinine Ratio 12.8 (10-20); Calcium 8.3 mg/dl (8.6-10.3); Creatinine Clr Calc Pharmacy 169.3 ml/min; Potassium 4.2 mmol/L (3.5-5.1)
[2025-03-16 12:17] LABS: Hematocrit (blood only) 38.8 % (42.0-52.0); Hemoglobin 12.5 g/dl (14.0-18.0); Mean Corpuscular Hemoglobin 26.9 pg (25.0-34.0); Mean Corpuscular Hgb Conc 32.2 g/dL (32.0-36.0); Mean Corpuscular Volume 83.4 fL (80.0-100.0); Mean Platelet Volume 11.1 fL (9.4-12.4); Platelet Count 218 K/uL (130-400); RDW Coefficient of Variation 18.9 % (11.5-14.5); RDW Standard Deviation 55.8 fL (36.4-46.3); Red Blood Count 4.65 M/uL (4.70-6.10); White Blood Count 9.95 K/ul (4.8-10.8)
[2025-03-16 12:18] LABS: Basophils # (auto) 0.09 K/uL (0.00-0.20); Basophils % (auto) 0.9 %; Eosinophils # (auto) 0.57 K/uL (0.00-0.50); Eosinophils % (auto) 5.7 %; Immature Granulocytes # (auto) 0.11 K/uL (0.01-0.20); Immature Granulocytes % (auto) 1.1 %; Lymphocytes # (auto) 2.52 K/uL (1.20-3.40); Lymphocytes % (auto) 25.3 %; Monocytes # (auto) 0.71 K/uL (0.11-0.59); Monocytes % (auto) 7.1 %; Neutrophils # (auto) 5.95 K/uL (1.40-6.50); Neutrophils % (auto) 59.9 %
[2025-03-16 14:15] VITALS: BP 125/68; RESP 18; TEMP 97.7; O2SAT 93
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
--- NOTE | 2025-03-16 15:46 | Pharmacy Report ---
Pharmacy Glycemic Short Note 2 - Date of Service March 16, 2025 - Glycemic Short BSG Results (Last 24 hours): 03/15/25 03/15/25 03/16/25 16:54 20:46 07:02 Glucose 325 H* POC Glucose 155 H 160 H 03/16/25 03/16/25 03/16/25 07:42 07:42 11:47 Glucose POC Glucose 364 H* 347 H* 180 H OUTPATIENT ANTIDIABETIC REGIMEN: * Toujeo 50 units SQ HS * glipizide 10mg PO BID * HbA1c 10.1% (03/14/25), 8.7% (12/06/24) ASSESSMENT: 03/16 * Umesh received 109 units of insulin yesterday (50 were basal) * Fasting BSG this AM elevated, basal insulin increased by ~20% * Will tighten carbohydrate ratio and loosen correction factor to prevent BSG spikes and overcorrection with elevated BSGs. 03/15: * Stanton received a total of 84 units of insulin yesterday (50 units were basal and 34 units were bolus). BSGs were all above goal yesterday. * Fasting BSG was 261mg/dL this morning. Lantus was just increased to 50 units last evening so will not make further adjustments to that today. * Tightened correction factor of bolus insulin. * He continues on cefepime for a UTI. 03/14 * Stanton is a 54 year old male admitted with UTI and a history of T2DM. Pharmacy is consulted for glycemic management while inpatient. Stanton is well known to the glycemic service from previous admissions. * Fasting BSG this AM acceptable, Lantus dose reduced yesterday evening per therapeutic conversion from Toujeo, will continue home dosage of Lantus tonight. * NovoLog at parameters from previous admissions. He is receiving Zerbaxa (mixed in D5W) for UTI treatment currently. PLAN FOR INPATIENT GLYCEMIC CONTROL: * Hold outpatient oral diabetes medications * Basal insulin * Lantus 60 units SQ HS * Bolus insulin * NovoLog per scale ACHS or Q6hrs while NPO * Goal Range: Low 110 mg/dL - High 140 mg/dL * Correction Factor: 20 mg/dL/unit * Nutritional / Prandial insulin per carb ratio of 1 unit per 4 grams CHO consumed
[2025-03-16 15:51] VITALS: PULSE 82
--- NOTE | 2025-03-16 17:04 | Discharge Summary ---
Discharge Summary Date of Service March 16, 2025 delayed entry date of service noted above Principal Dx & Hospital Course #1 = Principal Diagnosis (1) Complicated UTI (urinary tract infection): (2) AMS (altered mental status): (3) Hypokalemia: (4) History of pulmonary embolism: (5) (HFpEF) heart failure with preserved ejection fraction: (6) DM type 2 (diabetes mellitus, type 2): (7) Hyperlipidemia: (8) COPD (chronic obstructive pulmonary disease): (9) GERD (gastroesophageal reflux disease): (10) BPH (benign prostatic hyperplasia): (11) Iron deficiency anemia: (12) Tobacco use disorder: (13) Opioid dependence: Plan per admitting service notes: 54 year old male with PMH significant for chronic diastolic heart failure (EF 55%, TTE 2023), venous insufficiency, history of SVT, history CAD/STEMI, history subdural hematoma/subarachnoid hemorrhage (no operative intervention), hypertension, hyperlipidemia, COPD, DARIA, history of PE on Coumadin, DM 2 requiring insulin with peripheral neuropathy, GERD, ARNOLD, recurrent UTIs secondary to BPH/chronic urinary retention indwelling Fontaine catheter, mood disorder, chronic pain syndrome and opioid dependence on buprenorphine, low testosterone, hx MRSA/VRE, ongoing tobacco abuse who presented to the ED on 03/13/2025 with altered mental status who is admitted for encephalopathy secondary to complicated UTI. Complicated UTI UTI due to indwelling fontaine catheter (CAUTI) Patient with chronic indwelling catheter Fontaine exchanged in ED and urine sample obtained UA revealed orange urine and +leuk esterase, WBC, bacteria Leukocytosis of 12K but patient afebrile, vitals stable IV cefepime q8hr Follow urine culture 03/15 afebrile Mental status back to baseline ff up cultures continue Cefepime urology inpatient consult reviewed from November 2024 Recommend outpatient cystoscopy, and possible referral to reconstructive surgeryFor sphincter placement Strongly encouraged patient to follow-up as soon as possible as outpatient with the urology clinic 03/16 clinically improved back to baseline mental status Urine culture: COrynebacterium striatum Blood cultures: negative x 48 hours in light of patient's clinical presentation, will prescribe a course of Cefuroxime PO strongly emphasized to take probiotics daily x at least 1 month given history of C diff Urology service also consulted- recommend outpatient ff up at Urology office for outpatient cystoscopy, referral to [facility] urology per his request also made, for consideration of a sphincter to address his incontinence and ideally allow him to go catheter free. patient strongly encouraged to make it to his PCP and Urology outpatient ff up for continuity of care, patient verbalized understanding and agreement Altered mental status Metabolic Encephalopathy Likely secondary to UTI Head CT negative Patient does not meet criteria for sepsis on admission Labs demonstrated leukocytosis but otherwise unremarkable including normal TSH, lactate, ammonia - resolved back to baseline mental status Hypokalemia resolved History of PE on warfarin Supratherapeutic INR On warfarin with INR 4.9 Hold warfarin -- INR 2.3 upon discharge continue coumadin HFpEF CXR negative Patient appears euvolemic Continue furosemide and spironolactone Type 2 DM patient noted to be hyperglycemic DM educator recommendations: 1.) Increase Lantus 20% --> 60 units daily. 2.) Continue to increase dose by 5 units every 7 days until fasting blood sugar levels are ~100-150. Max dose: 90 units. 3.) If reaches set max dose of Lantus or fasting BG values are reasonable but post-prandial BG values are elevated, follow-up with primary provider as most likely would benefit from discontinuing Glipizide and adding set dose of Admelog with meals while also reducing Lantus dose to help better balance BG values thru day. 4.) Check with insurance to see if Trulicity or Mounjaro are covered and what your cost is. Hypertension Monitor BPs Continue diuretics and metoprolol Hyperlipidemia Continue statin History of CAD Continue baby aspirin and isosorbide COPD CXR negative VBG around baseline Biofire negative Continue inhalers BPH Continue tamsulosin and finasteride GERD Continue pantoprazole and famotidine ARNOLD Hemoglobin around baseline Continue ferrous sulfate Tobacco use disorder Nicotine patch Chronic pain syndrome Opioid dependence Continue buprenorphine and duloxetine, oxycodone Disposition: d/c home ff up with PCP in 1 week plan of care discussed with patient in detail and at length all questions answered he is understanding, agreeable, comfortable with the plan of care Romulo Clark MD Notes For Next Care Provider Medication Changes From Visit Cefuroxime BID x 5 more days Admission HPI Per Admitting Provider 54 year old male with PMH significant for chronic diastolic heart failure (EF 55%, TTE 2023), venous insufficiency, history of SVT, history CAD/STEMI, history subdural hematoma/subarachnoid hemorrhage (no operative intervention), hypertension, hyperlipidemia, COPD, DARIA, history of PE on Coumadin, DM 2 requiring insulin with peripheral neuropathy, GERD, ARNOLD, recurrent UTIs secondary to BPH/chronic urinary retention indwelling Fontaine catheter, mood disorder, chronic pain syndrome and opioid dependence on buprenorphine, low testosterone, hx MRSA/VRE, ongoing tobacco abuse who presented to the ED on 03/13/2025 with altered mental status . Per EMS, patient's family stated patient has had altered mental status for the last four days and has been extremely lethargic. EMS reported foul smelling and johnny colored urine in indwelling urinary catheter. Patient is unable to provide history due to lethargy and unwilling to answer questions. Stated his name and noted he is not in any pain but will not answer any further questions. Admission Exam Per Admitting Provider General/Psych: WD/WN, sitting up in chair, lethargic, looking down and avoiding eye contact Head: normocephalic, atraumatic Eyes: normal inspection, PERRL, conjunctivae pink, anicteric sclerae ENT: external ear and nose normal, oropharynx normal Neck: normal visual inspection, trachea midline, Respiratory: normal respiratory effort, lungs clear to auscultation, no wheeze/rales/rhonchi, no accessory muscle use Cardiovascular: regular rate and rhythm, no murmur/rub/gallop, Extremities: no cyanosis or clubbing, normal peripheral pulses, 1+ BLE edema Abdomen/GI: normal bowel sounds, soft, nontender Neurologic/MSK: A+Ox1, moves all extremities Skin: no rashes, normal color, warm and dry, dependent rubor to BLE Discharge Exam General- oriented x 3, not in distress, speaks in sentences with no effort or accessory muscle use Eyes- anicteric Neck- no JVD Lungs- clear breath sounds bilaterally, no rales/wheezes Heart- normal rate, regular rhythm; no murmurs Abdomen- normal bowel sounds, nondistended, soft, nontender Fontaine catheter in place: Draining yellow urine Clear Extremities- no pretibial edema, no calf tenderness Neuro- alert, oriented x 3; no gross focal neurologic deficits Skin- warm & dry Updated Medication List Medication Instructions Recorded Confirmed Type albuterol sulfate 90 mcg/actuation 2 inh inhalation Q4H PRN Shortness 08/29/24 03/13/25 History aerosol inhaler Of Breath Or Wheezing aspirin 81 mg tablet,delayed 81 mg PO QAM 08/29/24 03/13/25 History release atorvastatin 80 mg tablet 80 mg PO PM 08/29/24 03/13/25 History buprenorphine HCl 8 mg sublingual 8 mg sublingual DIRECTED 08/29/24 03/13/25 History tablet cyclobenzaprine 10 mg tablet 10 mg PO BID PRN muscle spasms 08/29/24 03/13/25 History duloxetine 60 mg capsule,delayed 60 mg PO QAM 08/29/24 03/13/25 History release famotidine 20 mg tablet 20 mg PO HS 08/29/24 03/13/25 History ferrous sulfate 325 mg (65 mg 325 mg PO QAM 08/29/24 03/13/25 History iron) tablet finasteride 5 mg tablet 5 mg PO QAM 08/29/24 03/13/25 History fluticasone 250 mcg-salmeterol 50 1 inh inhalation BID 08/29/24 03/13/25 History mcg/dose blistr powdr for inhalation folic acid 1 mg tablet 1 mg PO QAM 08/29/24 03/13/25 History glipizide 10 mg tablet 10 mg PO BID 08/29/24 03/13/25 History isosorbide dinitrate 30 mg tablet 30 mg PO QAM 08/29/24 03/13/25 History magnesium oxide 400 mg (241.3 mg 400 mg PO QAM 08/29/24 03/13/25 History magnesium) tablet metoprolol succinate 50 mg 75 mg PO BID 08/29/24 03/13/25 History tablet,extended release 24 hr ondansetron HCl 4 mg tablet 4 mg PO TID PRN Nausea And Vomiting 08/29/24 03/13/25 History oxycodone 10 mg tablet 10 mg PO BID PRN Pain, Severe 08/29/24 03/13/25 History spironolactone 25 mg tablet 25 mg PO QAM 08/29/24 03/13/25 History tamsulosin 0.4 mg capsule 0.4 mg PO DAILY 08/29/24 03/13/25 History pantoprazole 40 mg tablet,delayed 40 mg PO BID #60 tabs 09/04/24 03/13/25 Rx release furosemide 80 mg tablet 40 mg PO BID17 12/04/24 03/13/25 History potassium chloride 20 mEq 40 meq (2 x 20 mEq) PO UD #90 tabs 12/10/24 03/13/25 Rx tablet,extended release(part/cryst) dextromethorphan-guaifenesin 10 5 ml PO Q6H PRN Cough 02/06/25 03/13/25 History mg-100 mg/5 mL oral syrup fluticasone propionate 93 2 spray intranasal DAILY 02/06/25 03/13/25 History mcg/actuation breath activated aerosol insulin glargine U-300 conc 300 50 unit subcut HS 02/06/25 03/13/25 History unit/mL (3 mL) subcutaneous pen (Toujeo Max U-300 SoloStar) ipratropium 0.5 mg-albuterol 3 mg 3 ml inhalation TID 02/06/25 03/13/25 History (2.5 mg base)/3 mL nebulization soln sennosides 8.6 mg tablet (senna) 8.6 mg PO DAILY PRN Constipation 02/06/25 03/13/25 History umeclidinium 62.5 mcg/actuation 1 inh inhalation DAILY 02/06/25 03/13/25 History blister powder for inhalation (Incruse Ellipta) budesonide 0.5 mg/2 mL suspension 0.5 mg (2 mL) inhalation BID #60 mL 02/11/25 03/13/25 Rx for nebulization gabapentin 800 mg tablet 800 mg PO TID #60 tabs 02/11/25 03/13/25 Rx warfarin 4 mg tablet 5 mg PO UD 03/13/25 03/13/25 History L.acidop,casei,lactis,rham-B.lact,neisha 1 cap PO DAILY 30 days #30 caps 03/16/25 Rx 625 mg (10 billion cell) capsule (Advanced Probiotic) cefuroxime axetil 250 mg tablet 250 mg PO BID 5 days #10 tabs 03/16/25 Rx Hospital Stay Data Consultations 03/13/25 16:24 ED Decision to Admit Stat Diagnostic Imagining Performed Laboratory Results WBC 9.95 K/ul (4.8-10.8) 03/16/25 07:02 RBC 4.65 M/uL (4.70-6.10) L 03/16/25 07:02 Hgb 12.5 g/dl (14.0-18.0) L 03/16/25 07:02 Hct 38.8 % (42.0-52.0) L 03/16/25 07:02 MCV 83.4 fL (80.0-100.0) 03/16/25 07:02 MCH 26.9 pg (25.0-34.0) 03/16/25 07:02 MCHC 32.2 g/dL (32.0-36.0) 03/16/25 07:02 RDW Std Deviation 55.8 fL (36.4-46.3) H 03/16/25 07:02 RDW Coeff of Megan 18.9 % (11.5-14.5) H 03/16/25 07:02 Plt Count 218 K/uL (130-400) 03/16/25 07:02 MPV 11.1 fL (9.4-12.4) 03/16/25 07:02 Immature Gran % (Auto) 1.1 % 03/16/25 07:02 Neut % (Auto) 59.9 % 03/16/25 07:02 Lymph % (Auto) 25.3 % 03/16/25 07:02 [place] % (Auto) 7.1 % 03/16/25 07:02 Eos % (Auto) 5.7 % 03/16/25 07:02 Baso % (Auto) 0.9 % 03/16/25 07:02 Neut # (Auto) 5.95 K/uL (1.40-6.50) 03/16/25 07:02 Lymph # (Auto) 2.52 K/uL (1.20-3.40) 03/16/25 07:02 [place] # (Auto) 0.71 K/uL (0.11-0.59) H 03/16/25 07:02 Eos # (Auto) 0.57 K/uL (0.00-0.50) H 03/16/25 07:02 Baso # (Auto) 0.09 K/uL (0.00-0.20) 03/16/25 07:02 Immature Gran # (Auto) 0.11 K/uL (0.01-0.20) 03/16/25 07:02 PT 23.0 Seconds (9.0-12.0) H 03/16/25 06:57 INR 2.3 (0.9-1.1) H 03/16/25 06:57 VBG pH 7.51 (7.36-7.41) H 03/13/25 14:02 VBG pCO2 48 mmHg (38-50) 03/13/25 14:02 VBG pO2 22 mmHg 03/13/25 14:02 VBG HCO3 38 mmol/L 03/13/25 14:02 VBG O2 Saturation < 60.0 % 03/13/25 14:02 VBG Base Excess 13.3 mEq/L 03/13/25 14:02 Sodium 135 mmol/L (136-145) L 03/16/25 07:02 Potassium 4.2 mmol/L (3.5-5.1) D 03/16/25 07:02 Chloride 100 mmol/L (98-107) 03/16/25 07:02 Carbon Dioxide 33 mmol/L (21-32) H 03/16/25 07:02 Anion Gap 2 (3-11) L 03/16/25 07:02 BUN 11 mg/dl (6-23) 03/16/25 07:02 Creatinine 0.86 mg/dl (0.6-1.4) 03/16/25 07:02 Est Cr Clr Drug Dosing 169.3 ml/min 03/16/25 07:02 eGFR 102.90 03/16/25 07:02 BUN/Creatinine Ratio 12.8 (10-20) 03/16/25 07:02 Glucose 325 mg/dl (70-99(Fasting)) H* 03/16/25 07:02 POC Glucose 180 mg/dl (70-99) H 03/16/25 11:47 Estimat Average Glucose 243 mg/dl 03/14/25 05:22 Hemoglobin A1c 10.1 % (4.5-5.6) H 03/14/25 05:22 Lactate 1.7 mmol/L (0.4-2.0) 03/13/25 13:29 Calcium 8.3 mg/dl (8.6-10.3) L 03/16/25 07:02 Magnesium 1.8 mg/dl (1.7-2.4) 03/15/25 06:55 Total Bilirubin 0.8 mg/dl (0.2-1.0) 03/13/25 13:29 AST 16 U/L (13-39) 03/13/25 13:29 ALT 15 U/L (7-52) 03/13/25 13:29 Alkaline Phosphatase 124 U/L (34-104) H 03/13/25 13:29 Ammonia 26.0 umol/L (18-72) 03/13/25 14:02 Troponin I High Sens 6.2 pg/ml (0-20) 03/13/25 13:29 Total Protein 6.2 gm/dl (6.0-8.3) 03/13/25 13:29 Albumin 2.9 gm/dl (3.4-5.0) L 03/13/25 13:29 Globulin 3.3 gm/dl (2.5-4.0) 03/13/25 13:29 Albumin/Globulin Ratio 0.9 (0.9-2) 03/13/25 13:29 TSH 1.565 uIu/ml (0.300-4.500) 03/13/25 13:29 Urine Color [place] 03/13/25 15:25 Urine Appearance Cloudy (Clear) A 03/13/25 15:25 Urine pH >= 9.0 (4.5-7.5) H 03/13/25 15:25 Ur Specific [place] 1.020 (1.000-1.030) 03/13/25 15:25 Urine Protein 3+ (Negative) H 03/13/25 15:25 Urine Glucose (UA) Negative (Negative) 03/13/25 15:25 Urine Ketones Trace (Negative) H 03/13/25 15:25 Urine Blood 3+ (Negative) H 03/13/25 15:25 Urine Nitrite Negative (Negative) 03/13/25 15:25 Urine Bilirubin Negative (Negative) 03/13/25 15:25 Urine Urobilinogen Positive (Negative) H 03/13/25 15:25 Ur Leukocyte Esterase 3+ (Negative) H 03/13/25 15:25 Urine WBC (Auto) >50 /hpf (0-5) H 03/13/25 15:25 Urine RBC (Auto) >20 /hpf (0-2) H 03/13/25 15:25 U Hyaline Cast (Auto) 6-10 /lpf (0-2) H 03/13/25 15:25 U Epithel Cells (Auto) 6-10 /hpf (0-2) H 03/13/25 15:25 Urine Bacteria (Auto) 3+ (None Seen) H 03/13/25 15:25 Urine Comment 03/13/25 15:25 Urine Opiates Screen Neg (Neg) 03/13/25 15:25 Ur Methadone, Qual Neg (Neg) 03/13/25 15:25 Urine Fentanyl Screen Neg (Neg) 03/13/25 15:25 Urine Barbiturates Neg (Neg) 03/13/25 15:25 Ur Phencyclidine (PCP) Neg (Neg) 03/13/25 15:25 U Amphetamin/Meth Scrn Neg (Neg) 03/13/25 15:25 MDMA (Ecstasy) Screen Neg (Neg) 03/13/25 15:25 U Benzodiazepines Scrn Neg (Neg) 03/13/25 15:25 Ur Cocaine Metabolite Neg (Neg) 03/13/25 15:25 U Marijuana (THC) Screen Pos (Neg) H 03/13/25 15:25 Adenovirus (PCR) Not Detected (NotDetected) 03/13/25 14:00 B. pertussis DNA (PCR) Not Detected (NotDetected) 03/13/25 14:00 B.parapertussis DNA PCR Not Detected (NotDetected) 03/13/25 14:00 C. pneumoniae DNA (PCR) Not Detected (NotDetected) 03/13/25 14:00 Coronavirus OC43 (PCR) Not Detected (NotDetected) 03/13/25 14:00 Coronavirus HKU1 (PCR) Not Detected (NotDetected) 03/13/25 14:00 Coronavirus 229E (PCR) Not Detected (NotDetected) 03/13/25 14:00 SARS-CoV-2 (PCR) Not Detected (NotDetected) 03/13/25 14:00 Coronavirus NL63 (PCR) Not Detected (NotDetected) 03/13/25 14:00 Human Metapneumovir PCR Not Detected (NotDetected) 03/13/25 14:00 Influenza Type A (PCR) Not Detected (NotDetected) 03/13/25 14:00 Influenza Type B (PCR) Not Detected (NotDetected) 03/13/25 14:00 M. pneumoniae (PCR) Not Detected (NotDetected) 03/13/25 14:00 Parainfluenza 1 (PCR) Not Detected (NotDetected) 03/13/25 14:00 Parainfluenza 2 (PCR) Not Detected (NotDetected) 03/13/25 14:00 Parainfluenza 3 (PCR) Not Detected (NotDetected) 03/13/25 14:00 Parainfluenza 4 (PCR) Not Detected (NotDetected) 03/13/25 14:00 RSV (PCR) Not Detected (NotDetected) 03/13/25 14:00 Entero/Rhino (PCR) Not Detected (NotDetected) 03/13/25 14:00 Impressions Chest X-Ray 03/13/25 13:28 XR chest 1V portable CLINICAL HISTORY: weakness COMPARISON STUDY: 02/06/2025 FINDINGS: Stable mild cardiomegaly without pulmonary vascular congestion. Inspiration is shallow. No effusion, consolidation, or pneumothorax. IMPRESSION: No acute findings. ACT 112: Negative or not required by law. Electronically signed by: Yvon Wilkerson M.D. 03/13/2025 3:[address] 03/13/25 13:28 CT head/brain wo con CLINICAL HISTORY: 54 years-old Male with AMS. Acutely altered mental status TECHNIQUE: Multiple axial CT images of the head were obtained without contrast. A dose lowering technique was utilized adhering to the principles of ALARA. CT DOSE: 1719.9 mGy.cm COMPARISON: October 11, 2024 FINDINGS: No acute intracranial hemorrhage, midline shift, intracranial mass, hydrocephalus, territorial ischemia or abnormal extra-axial collection. Motion degraded exam. Involutional changes redemonstrated. The calvarium is intact. Mild to moderate mucosal thickening of the paranasal sinuses. Mastoid air cells are clear. IMPRESSION: Motion degraded exam. No acute intracranial abnormality identified on this limited study. ACT 112: Negative or not required by law. The above report was generated using voice recognition software. It may contain grammatical, syntax or spelling errors. Electronically signed by: Shelton Apodaca M.D. 03/13/2025 3:34 PM 03/13/25 13:28 CT head/brain wo con Stat Pending Results Patient Have Any Pending Studies at Discharge: No Discharge Instructions Given to Patient (Per Discharging Provider) PLEASE REFER TO YOUR NEW MEDICATION LIST AND FOLLOW INSTRUCTIONS CAREFULLY. YOUR NEW MEDICATIONS INCLUDE: Cefuroxime- antibiotic for possible urinary tract infection Please take a probiotic daily x 1 month at least. Eat probiotic-rich food such as yogurt, etc daily as well. Call your primary care physician or return to the ER if you develop diarrhea to be evaluated for C diff diarrhea. PLEASE CALL YOUR PRIMARY CARE PHYSICIAN OR RETURN TO THE ER IF WITH WORSENING OF SYMPTOMS, INCLUDING confusion, change in mental status, fever/chills, etc FOLLOW UP WITH PRIMARY CARE PHYSICIAN OUTLINED ABOVE. FOLLOW UP WITH UROLOGIST SCHEDULED. Total Time Total Time Spent Total Time Spent (In Minutes): 40 minutes
[2025-03-16] MEDS ORDERED: LANTUS PER UNIT CHARGE SC SCH (21:00)
[2025-03-18 13:07] LABS: Marijuana Quant, GCMS Urine 21 ng/mL (<5)
== END 2025-03-16 16:16 | disposition home or self-care (01) | DRG 698 ==
LOC: ED 13:17 → EDINP 17:37 → SUATTDRO 17:37 → 2W 22:03

== ENCOUNTER 2025-04-05 12:17 | Inpatient (IN) ==
--- NOTE | 2025-04-05 12:33 | Emergency Department Note ---
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 release(DR/EC) 60 mg PO QAM tamsulosin 0.4 mg capsule 0.4 mg PO DAILY oxycodone 10 mg tablet 10 mg PO BID PRN (Reason: Pain, Severe) aspirin 81 mg Tablet,Delayed Release (Dr/Ec) 81 mg PO QAM pantoprazole 40 mg Tablet,Delayed Release (Dr/Ec) 40 mg PO BID Qty: 60 0RF sennosides [senna] 8.6 mg Tablet 8.6 mg PO DAILY PRN (Reason: Constipation) ipratropium-albuterol 0.5 mg-3 mg(2.5 mg base)/3 mL Solution For Nebulization 3 ml INHALATION TID Incruse Ellipta 62.5 mcg/actuation Blister With Device 1 inh INHALATION DAILY fluticasone propionate 93 mcg/actuation Aerosol Breath Activated 2 spray INTRANASAL DAILY Rx Instructions: into each nostril insulin glargine U-300 conc [Toujeo Max U-300 SoloStar] 300 unit/mL (3 mL) insulin pen 60 unit SUBCUT HS gabapentin 800 mg tablet 800 mg PO TID Qty: 60 0RF budesonide 0.5 mg/2 mL suspension for nebulization 0.5 mg inhalation BID Qty: 60 0RF Advanced Probiotic 625 mg (10 billion cell) Capsule 1 cap PO DAILY 30 Days Qty: 30 0RF fluconazole 200 mg tablet 200 mg PO QAM Rx Instructions: STARTED 03/29/25 FOR 14 DAYS sulfamethoxazole-trimethoprim 800-160 mg tablet 1 tab PO BID Rx Instructions: STARTED 03/29/25 FOR 10 DAYS. warfarin 5 mg tablet 2.5 - 5 mg PO DAILY Rx Instructions: LAST REPORTED: 2.5 MG THURSDAYS, THEN 5 MG ALL OTHER DAYS. potassium chloride 20 mEq tablet,ER particles/crystals 20 meq PO BID Referrals Referrals: Kehinde Mc MD [Primary Care Provider] -
--- NOTE | 2025-04-05 12:48 | XRay Report ---
XR chest 1V portable CLINICAL HISTORY: Sepsis COMPARISON STUDY: 03/13/2025 FINDINGS: Single view portable chest and is unchanged allowing for technical differences and body hab itus. No acute cardiopulmonary process identified. No air space opacity or sizable pleural effusion h as developed. Cardiomegaly and pulmonary vascular congestion are persistent. IMPRESSION: Stable exam; no acute findings ACT 112: Negative or not required by law. Electronically signed by: Jana Medina M.D. 04/05/2025 12:47 PM
[2025-04-05 13:23] LABS: Base Excess VBG 8.0 mEq/L; HCO3 VBG 35 mmol/L; Oxygen Saturation VBG < 60.0 %; PCO2 VBG 56 mmHg (38-50); PO2 VBG < 20 mmHg; pH VBG 7.40 (7.36-7.41)
[2025-04-05 13:27] LABS: Hematocrit (blood only) 40.0 % (42.0-52.0); Hemoglobin 12.9 g/dl (14.0-18.0); Immature Granulocytes # (auto) 0.06 K/uL (0.01-0.20); Immature Granulocytes % (auto) 0.5 %; Mean Corpuscular Hemoglobin 27.0 pg (25.0-34.0); Mean Corpuscular Volume 83.7 fL (80.0-100.0); Platelet Count 230 K/uL (130-400); RDW Standard Deviation 56.8 fL (36.4-46.3); Red Blood Count 4.78 M/uL (4.70-6.10); White Blood Count 13.06 K/ul (4.8-10.8)
--- NOTE | 2025-04-05 13:43 | CT Scan Report ---
CT SCAN OF THE BRAIN WITHOUT IV CONTRAST CLINICAL HISTORY: Change in mental status. COMPARISON STUDY: CT of the brain dated 03/13/2005. TECHNIQUE: Unenhanced axial CT scan of the brain is performed from the vertex to the skull base. Imag es are reviewed in the axial, sagittal, and coronal planes. A dose lowering technique was utilized a dhering to the principles of ALARA. The patient was scanned twice due to motion artifact. The examina tion is motion compromised. CT DOSE: 1250.21 mGy.cm FINDINGS: Brain parenchyma: The brain parenchyma is normal in appearance. There is no hemorrhage, mass effect, or evidence of acute territorial ischemia by CT criteria. [place]-white matter differentiation is preser nani. No extra-axial fluid collection is seen. Ventricles, sulci, cisterns: Normal in configuration. Intracranial vasculature: The visualized intracranial vasculature at the skull base is normal in appe arance. Calvarium: Unremarkable. Sinuses and mastoids: There is moderate mucosal thickening and fluid in the left maxillary sinus. Mil d mucosal thickening is seen in the right maxillary antrum. Thickening and sclerosis of the sinus wal ls indicates chronicity. There is mild/moderate mucosal thickening in the right ethmoid sinuses. Mild mucosal thickening is seen in the right sphenoid sinus and the right frontal sinus. There is a left mastoid effusion. The right mastoid air cells are well pneumatized. Orbits: The bony orbits are grossly intact. IMPRESSION: There is no hemorrhage, mass effect, or evidence of acute territorial ischemia by CT cesar valentino noting a motion degraded examination. ACT 112: Negative or not required by law. Electronically signed by: Misael Lopez M.D. 04/05/2025 1:42 PM
[2025-04-05 13:44] LABS: Alanine Aminotransferase 11.0 U/L (7-52); Alkaline Phosphatase 118.0 U/L (34-104); Anion Gap 4.0 (3-11); Bilirubin,Total 0.8 mg/dl (0.2-1.0); Blood Urea Nitrogen 7.0 mg/dl (6-23); Calcium 8.7 mg/dl (8.6-10.3); Carbon Dioxide 35.0 mmol/L (21-32); Chloride 100.0 mmol/L (98-107); Creatinine Clr Calc Pharmacy 188.0 ml/min; Glucose 208.0 mg/dl (70-99(Fasting)); Magnesium 1.5 mg/dl (1.7-2.4); Potassium 3.8 mmol/L (3.5-5.1); Sodium 139.0 mmol/L (136-145); Total Protein 6.6 gm/dl (6.0-8.3)
[2025-04-05 13:55] LABS: INR 2.5 (0.9-1.1); Partial Thromboplastin Time 46 Seconds (21-31); Prothrombin Time 25.1 Seconds (9.0-12.0)
[2025-04-05] MEDS: MAGNESIUM SULFATE / D5W 1 GM/100 ML BAG IV STA ×2 (14:42→17:42)
--- NOTE | 2025-04-05 14:55 | Electrocardiogram Report ---
Test Reason : Blood Pressure : */* mmHG Vent. Rate : 62 BPM Atrial Rate : 62 BPM P-R Int : 166 ms QRS Dur : 106 ms QT Int : 438 ms P-R-T Axes : 84 18 31 degrees QTcB Int : 444 ms Normal sinus rhythm Normal ECG When compared with ECG of 13-Mar-2025 13:25, Nonspecific T wave abnormality no longer evident in Lateral leads Confirmed by Stanton Porter ([id number]) on 04/05/2025 2:54:32 PM Referred By: REFERRED SELF Confirmed By: Stanton Porter
[2025-04-05 15:03] LABS: Appearance Urine Turbid (Clear); Bacteria Urine Automated 4+ (None Seen); Epithelial Cell Urine Auto >20 /hpf (0-2); Glucose Urine UA Negative (Negative); RBC Urine Automated >20 /hpf (0-2); WBC Urine Automated >50 /hpf (0-5)
[2025-04-05 15:05] LABS: Cast Urine Automated 0-2 /lpf (0-2)
--- NOTE | 2025-04-05 15:09 | History & Physical Report ---
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 status) Altered mental status type: unspecified Qualified Code(s): R41.82 - Altered mental status, unspecified (3) Catheter-associated urinary tract infection Encounter type: initial encounter Indwelling urinary catheter type: unspecified Qualified Code(s): T83.511A - Infection and inflammatory reaction due to indwelling urethral catheter, initial encounter; N39.0 - Urinary tract infection, site not specified
[2025-04-05 15:43] LABS: Amphetamines+Metham, Urine Neg (Neg); MDMA (Ecstacy), Urine Neg (Neg); Marijuana, Urine Neg (Neg)
[2025-04-05] MEDS: CEFEPIME 2000MG 2,000 MG/20 ML SYR IV STA (15:52)
[2025-04-05] MEDS ORDERED: ACETAMINOPHEN 325 MG TAB PO PRN (16:56)
[2025-04-05] MEDS ORDERED: GLUCAGON FOR INJ 1 MG VIAL SQ PRN (16:56)
[2025-04-05] MEDS ORDERED: DEXTROSE 50% 50 ML SYRINGE IV PRN (16:56)
[2025-04-05] MEDS ORDERED: PHARMACY GLYCEMIC MGMT CONSULT PRN (16:56)
[2025-04-05] MEDS ORDERED: ONDANSETRON INJ 2 MG/ML 2 ML VIAL IV PRN (16:56)
[2025-04-05] MEDS ORDERED: GLUCOSE 10 TAB/TUBE PO PRN (16:56)
[2025-04-05] MEDS ORDERED: CARBOHYDRATES FOR HYPOGLYCEMIA PO PRN (16:56)
[2025-04-05] MEDS ORDERED: GLUCOSE 40% GEL 15 GM TUBE PO PRN (16:56)
[2025-04-05] MEDS: PIPERACILLIN/TAZOBACTAM 4.5 GM/100 ML BAG IV STA ×2 (18:11→18:49)
[2025-04-05] MEDS: Nursing to Pharmacy Communication SCH (18:12)
[2025-04-05] MEDS: INSULIN ASPART PER UNIT CHARGE SC SCH (18:50)
[2025-04-05] MEDS: NICOTINE 21 MG/24 HR TDSY TD SCH (18:50)
[2025-04-05] MEDS: WARFARIN SOD 2.5 MG TAB PO SCH (19:45)
[2025-04-05] MEDS: ALBUT/IPRATROP 3MG/0.5MG NEB 3 ML VIAL INH SCH (20:40)
[2025-04-05] MEDS: BUDESONIDE 0.5 MG/2 ML VIAL (PULMICORT) INH SCH (20:40)
[2025-04-05] MEDS: ATORVASTATIN 40 MG TAB PO SCH (21:17)
[2025-04-05] MEDS: POTASSIUM CHLORIDE CRTAB 20 MEQ TABCR PO SCH (21:18)
[2025-04-05] MEDS: FUROSEMIDE 40 MG TAB PO SCH (21:18)
[2025-04-05] MEDS: METOPROLOL SUCC 25MG EXT REL TAB PO SCH (21:18)
[2025-04-05] MEDS: FAMOTIDINE 20 MG TAB PO SCH (21:18)
[2025-04-05] MEDS: LANTUS PER UNIT CHARGE SQ SCH (21:18)
[2025-04-06] MEDS: PIPERACILLIN/TAZOBACTAM 4.5 GM/100 ML BAG IV SCH (00:08)
[2025-04-06] MEDS: INSULIN ASPART PER UNIT CHARGE SC SCH (00:09)
[2025-04-06 06:47] LABS: Base Excess VBG 8.5 mEq/L; HCO3 VBG 35 mmol/L; Oxygen Saturation VBG < 60.0 %; PCO2 VBG 52 mmHg (38-50); PO2 VBG 27 mmHg; pH VBG 7.43 (7.36-7.41)
[2025-04-06 06:54] LABS: Hematocrit (blood only) 39.0 % (42.0-52.0); Hemoglobin 12.9 g/dl (14.0-18.0); Immature Granulocytes # (auto) 0.09 K/uL (0.01-0.20); Immature Granulocytes % (auto) 0.6 %; Mean Corpuscular Hemoglobin 27.4 pg (25.0-34.0); Mean Corpuscular Volume 83.0 fL (80.0-100.0); Platelet Count 244 K/uL (130-400); RDW Standard Deviation 55.4 fL (36.4-46.3); Red Blood Count 4.70 M/uL (4.70-6.10); White Blood Count 14.65 K/ul (4.8-10.8)
[2025-04-06 07:23] LABS: Anion Gap 8.0 (3-11); Bilirubin,Total 1.1 mg/dl (0.2-1.0); Calcium 8.9 mg/dl (8.6-10.3); Carbon Dioxide 30.0 mmol/L (21-32); Chloride 102.0 mmol/L (98-107); Magnesium 1.8 mg/dl (1.7-2.4); Potassium 3.4 mmol/L (3.5-5.1); Sodium 140.0 mmol/L (136-145)
[2025-04-06 07:29] LABS: Alanine Aminotransferase 8.0 U/L (7-52); Albumin Globulin Ratio 1.0 (0.9-2); Alkaline Phosphatase 115.0 U/L (34-104); Blood Urea Nitrogen 7.0 mg/dl (6-23); Creatinine Clr Calc Pharmacy 173.9 ml/min; Globulin 3.3 gm/dl (2.5-4.0); Glucose 133.0 mg/dl (70-99(Fasting)); Total Protein 6.6 gm/dl (6.0-8.3)
[2025-04-06 07:41] LABS: Thyroid Stimulating Hormone 2.545 uIu/ml (0.300-4.500)
[2025-04-06 07:44] LABS: INR 2.1 (0.9-1.1); Prothrombin Time 21.2 Seconds (9.0-12.0)
--- NOTE | 2025-04-06 08:07 | Hospitalist Progress Note ---
Date of Service April 06, 2025 Assessment & Plan (1) AMS (altered mental status): (2) Metabolic encephalopathy: (3) Catheter-associated urinary tract infection: (4) Hypomagnesemia: Plan Patient is a medically complex 54-year-old male with past medical history significant for chronic diastolic heart failure [EF = 55-59%; TTE 03/2024], chronic venous insufficiency, history of SVT, CAD, history of STEMI, history of subdural hematoma/subarachnoid hemorrhage with no operative intervention, HTN, HLD, COPD, DARIA intolerant to CPAP, history of PE on Coumadin, insulin-requiring DMII with diabetic peripheral neuropathy, GERD, ARNOLD, BPH/chronic urinary retention with chronic indwelling Lloyd catheter placement c/b recurrent UTIs, mood disorder, chronic pain syndrome, opioid dependence with history of drug overdose on buprenorphine, low testosterone, tobacco use disorder and other problems listed below who presented to the ED via EMS due to worsening confusion/AMS. Poor historian. Patient is very drowsy and lethargic in the ED - difficult to obtain much history because of this. However, patient able to communicate that he has "not been feeling well" over the past several days. #AMS #Metabolic encephalopathy Likely 2/[address]: no hemorrhage, mass effect or evidence of acute territorial ischemia VBG c/w chronic hypercapnia --> likely related to obesity hypoventilation syndrome given body habitus Urine tox negative EtOH level undetectable Blood, urine cxs pending Hold gabapentin for now Repeat VBG this AM TSH wnl /vit B12 level Avoid sedating agents as able Neurochecks Q4H for now #CAUTI #H/o recurrent UTIs #Chronic indwelling Lloyd catheter 2/2 chronic urinary retention WBC 13-14k Urine cx - posit. for Enterococcus faecium - discussed w/ pharm. and started on linezolid Lactate negative Procal pending S/p dose of IV cefepime in ED -Pt noted to have allergy to cefepime --> could not confirm w/ pt -D/w ED pharmacist, December --> based on prior urine cx/ABX allergies, will c/w IV Zosyn for now pending cx results Lloyd cath exchanged on admission #Hypomagnesemia Mag 1.5 replete and monitor #HLD #CAD, h/o STEMI Continue statin, ASA Continue Imdur #Neuropathy Continue Cymbalta Hold gabapentin for now, as per above, given AMS #GERD Continue PPI, Pepcid #H/o PE INR therapeutic Continue Coumadin w/ daily INR monitoring --> adjust dose PRN #DMII, uncontrolled Hgb A1c 10.1 as of 03/14/25 Hold home reg Basal/bolus reg while inpt Appreciate glycemic pharm assistance Follow BSG checks ACHS #ARNOLD Hgb stable Continue iron supplementation #BPH Continue Proscar, Flomax #COPD No s/sx of acute exacerbation CXR: stable exam, no acute findings Continue home inhalers/nebs #HTN Continue BB w/ hold parameters #Chronic diastolic HF Appears euvolemic on exam Continue home diuretic regimen/K+ supplementation #Chronic pain syndrome Pt previously on oxy -Pt states he stopped taking this --> oxy was removed from med list Continue buprenorphine #Tobacco use disorder Nicotine patch ordered #Chronically elevated of alk phos --> appears around baseline, continue to monitor LFTs #DARIA Prev intolerant to CPAP Will trial CPAP again while inpt DVT Prophylaxis: Coumadin Code Status: FULL CODE Disposition: med/tele Admission and Anticipated Discharge Date Admission Date: April 05, 2025 Subjective Pt seen in follow up of AMS, likely secondary to UTI, chronic Lloyd Currently sitting up in bed in NAD, appears comfortable Pt is awake, eyes open, but is not talking much. He is following commands, nods as understanding. Sits up easily by himself when asked to do physical exam. OT and RN present at the bedside. Discussed change of abx to linezolid with the pt and staff. After being contacted by the pharmacist about his prelim urine cultx results. No chest pain, shortness of breath, no abd. pain Review of Systems Review of Systems: All systems reviewed & are unremarkable except as noted in Subjective Physical Exam Physical Exam: General Appearance:Morbidly Obese M in NAD Head: normocephalic, Atraumatic Eyes: normal inspection, EOMI Neck: supple Respiratory/Chest: Decreased breath sounds, clear to auscultation, No accessory muscle use Cardiovascular: S1, S2, No murmur Abdomen/GI:Soft, Non tender, Bowel sounds present, + obese abdomen Extremities/Musculoskeletal:normal inspection, LE edema, + chronic venous stasis changes Neurologic/Psych:AAOX3, awake, interacts and follows simple commands but does not talk much, EOMI, no facial asymmetry, moves extremities Skin: normal color, warm Results & Data Results & Data Vital Signs (Past 12 Hours) Vital Signs Temp Pulse Pulse Resp BP Pulse Ox O2 Del Method 04/06/25 07:33 36.9 C 59 L 18 103/66 95 Room Air 04/06/25 07:33 59 L 04/06/25 07:09 63 16 92 Room Air 04/06/25 02:12 37.1 C 63 18 117/67 91 Room Air 04/05/25 22:36 37.3 C 65 16 175/65 H 92 Room Air 04/05/25 22:04 64 04/05/25 20:40 63 18 91 Room Air 04/05/25 20:32 37.3 C 67 18 164/66 H 94 Room Air Laboratory Results 04/06/25 04/06/25 04/06/25 Range/Units 07:55 05:46 04:31 WBC 14.65 H (4.8-10.8) K/ul RBC 4.70 (4.70-6.10) M/uL Hgb 12.9 L (14.0-18.0) g/dl Hct 39.0 L (42.0-52.0) % MCV 83.0 (80.0-100.0) fL MCH 27.4 (25.0-34.0) pg MCHC 33.1 (32.0-36.0) g/dL RDW Std Deviation 55.4 H (36.4-46.3) fL RDW Coeff of Megan 18.8 H (11.5-14.5) % Plt Count 244 (130-400) K/uL MPV 11.4 (9.4-12.4) fL Immature Gran % (Auto) 0.6 % Neut % (Auto) 70.9 % Lymph % (Auto) 19.0 % Morris % (Auto) 4.6 % Eos % (Auto) 4.4 % Baso % (Auto) 0.5 % Neut # (Auto) 10.39 H (1.40-6.50) K/uL Lymph # (Auto) 2.78 (1.20-3.40) K/uL Morris # (Auto) 0.68 H (0.11-0.59) K/uL Eos # (Auto) 0.64 H (0.00-0.50) K/uL Baso # (Auto) 0.07 (0.00-0.20) K/uL Immature Gran # (Auto) 0.09 (0.01-0.20) K/uL PT 21.2 H (9.0-12.0) Seconds INR 2.1 H (0.9-1.1) APTT (21-31) Seconds PTT Ratio VBG pH 7.43 H (7.36-7.41) VBG pCO2 52 H (38-50) mmHg VBG pO2 27 mmHg VBG HCO3 35 mmol/L VBG O2 Saturation < 60.0 % VBG Base Excess 8.5 mEq/L Sodium 140 (136-145) mmol/L Potassium 3.4 L (3.5-5.1) mmol/L Chloride 102 (98-107) mmol/L Carbon Dioxide 30 (21-32) mmol/L Anion Gap 8 (3-11) BUN 7 (6-23) mg/dl Creatinine 0.84 (0.6-1.4) mg/dl Est Cr Clr Drug Dosing 173.9 ml/min eGFR 103.63 BUN/Creatinine Ratio 8.3 L (10-20) Glucose 133 H (70-99(Fasting)) mg/dl POC Glucose 157 H 140 H (70-99) mg/dl Lactate (0.4-2.0) mmol/L Calcium 8.9 (8.6-10.3) mg/dl Phosphorus 2.5 (2.5-4.9) mg/dl Magnesium 1.8 (1.7-2.4) mg/dl Total Bilirubin 1.1 H (0.2-1.0) mg/dl Direct Bilirubin (0-0.2) mg/dl AST 17 (13-39) U/L ALT 8 (7-52) U/L Alkaline Phosphatase 115 H (34-104) U/L Ammonia (18-72) umol/L Troponin I High Sens (0-20) pg/ml C-Reactive Protein (0-0.5) mg/dl Total Protein 6.6 (6.0-8.3) gm/dl Albumin 3.3 L (3.4-5.0) gm/dl Globulin 3.3 (2.5-4.0) gm/dl Albumin/Globulin Ratio 1.0 (0.9-2) Vitamin B12 344 (180-914) pg/ml Procalcitonin (0-0.5) ng/ml TSH 2.545 (0.300-4.500) uIu/ml Urine Color Urine Appearance (Clear) Urine pH (4.5-7.5) Ur Specific [place] (1.000-1.030) Urine Protein (Negative) Urine Glucose (UA) (Negative) Urine Ketones (Negative) Urine Blood (Negative) Urine Nitrite (Negative) Urine Bilirubin (Negative) Urine Urobilinogen (Negative) Ur Leukocyte Esterase (Negative) Urine WBC (Auto) (0-5) /hpf Urine RBC (Auto) (0-2) /hpf U Hyaline Cast (Auto) (0-2) /lpf U Epithel Cells (Auto) (0-2) /hpf Urine Bacteria (Auto) (None Seen) Urine Comment Urine Opiates Screen (Neg) Ur Methadone, Qual (Neg) Urine Fentanyl Screen (Neg) Urine Barbiturates (Neg) Ur Phencyclidine (PCP) (Neg) U Amphetamin/Meth Scrn (Neg) MDMA (Ecstasy) Screen (Neg) U Benzodiazepines Scrn (Neg) Ur Cocaine Metabolite (Neg) U Marijuana (THC) Screen (Neg) Ethyl Alcohol mg/dL (<10.0) mg/dl 04/06/25 04/05/25 04/05/25 Range/Units 00:01 20:16 16:51 WBC (4.8-10.8) K/ul RBC (4.70-6.10) M/uL Hgb (14.0-18.0) g/dl Hct (42.0-52.0) % MCV (80.0-100.0) fL MCH (25.0-34.0) pg MCHC (32.0-36.0) g/dL RDW Std Deviation (36.4-46.3) fL RDW Coeff of [place] (11.5-14.5) % Plt Count (130-400) K/uL MPV (9.4-12.4) fL Immature Gran % (Auto) % Neut % (Auto) % Lymph % (Auto) % Morris % (Auto) % Eos % (Auto) % Baso % (Auto) % Neut # (Auto) (1.40-6.50) K/uL Lymph # (Auto) (1.20-3.40) K/uL Morris # (Auto) (0.11-0.59) K/uL Eos # (Auto) (0.00-0.50) K/uL Baso # (Auto) (0.00-0.20) K/uL Immature Gran # (Auto) (0.01-0.20) K/uL PT (9.0-12.0) Seconds INR (0.9-1.1) APTT (21-31) Seconds PTT Ratio VBG pH (7.36-7.41) VBG pCO2 (38-50) mmHg VBG pO2 mmHg VBG HCO3 mmol/L VBG O2 Saturation % VBG Base Excess mEq/L Sodium (136-145) mmol/L Potassium (3.5-5.1) mmol/L Chloride (98-107) mmol/L Carbon Dioxide (21-32) mmol/L Anion Gap (3-11) BUN (6-23) mg/dl Creatinine (0.6-1.4) mg/dl Est Cr Clr Drug Dosing ml/min eGFR BUN/Creatinine Ratio (10-20) Glucose (70-99(Fasting)) mg/dl POC Glucose 124 H 179 H 193 H (70-99) mg/dl Lactate (0.4-2.0) mmol/L Calcium (8.6-10.3) mg/dl Phosphorus (2.5-4.9) mg/dl Magnesium (1.7-2.4) mg/dl Total Bilirubin (0.2-1.0) mg/dl Direct Bilirubin (0-0.2) mg/dl AST (13-39) U/L ALT (7-52) U/L Alkaline Phosphatase (34-104) U/L Ammonia (18-72) umol/L Troponin I High Sens (0-20) pg/ml C-Reactive Protein (0-0.5) mg/dl Total Protein (6.0-8.3) gm/dl Albumin (3.4-5.0) gm/dl Globulin (2.5-4.0) gm/dl Albumin/Globulin Ratio (0.9-2) Vitamin B12 (180-914) pg/ml Procalcitonin (0-0.5) ng/ml TSH (0.300-4.500) uIu/ml Urine Color Urine Appearance (Clear) Urine pH (4.5-7.5) Ur Specific [place] (1.000-1.030) Urine Protein (Negative) Urine Glucose (UA) (Negative) Urine Ketones (Negative) Urine Blood (Negative) Urine Nitrite (Negative) Urine Bilirubin (Negative) Urine Urobilinogen (Negative) Ur Leukocyte Esterase (Negative) Urine WBC (Auto) (0-5) /hpf Urine RBC (Auto) (0-2) /hpf U Hyaline Cast (Auto) (0-2) /lpf U Epithel Cells (Auto) (0-2) /hpf Urine Bacteria (Auto) (None Seen) Urine Comment Urine Opiates Screen (Neg) Ur Methadone, Qual (Neg) Urine Fentanyl Screen (Neg) Urine Barbiturates (Neg) Ur Phencyclidine (PCP) (Neg) U Amphetamin/Meth Scrn (Neg) MDMA (Ecstasy) Screen (Neg) U Benzodiazepines Scrn (Neg) Ur Cocaine Metabolite (Neg) U Marijuana (THC) Screen (Neg) Ethyl Alcohol mg/dL (<10.0) mg/dl 04/05/25 04/05/25 Range/Units 13:59 13:14 WBC 13.06 H (4.8-10.8) K/ul RBC 4.78 (4.70-6.10) M/uL Hgb 12.9 L (14.0-18.0) g/dl Hct 40.0 L (42.0-52.0) % MCV 83.7 (80.0-100.0) fL MCH 27.0 (25.0-34.0) pg MCHC 32.3 (32.0-36.0) g/dL RDW Std Deviation 56.8 H (36.4-46.3) fL RDW Coeff of Megan 19.3 H (11.5-14.5) % Plt Count 230 (130-400) K/uL MPV 11.0 (9.4-12.4) fL Immature Gran % (Auto) 0.5 % Neut % (Auto) 70.8 % Lymph % (Auto) 18.7 % Morris % (Auto) 4.4 % Eos % (Auto) 5.1 % Baso % (Auto) 0.5 % Neut # (Auto) 9.25 H (1.40-6.50) K/uL Lymph # (Auto) 2.44 (1.20-3.40) K/uL Morris # (Auto) 0.58 (0.11-0.59) K/uL Eos # (Auto) 0.67 H (0.00-0.50) K/uL Baso # (Auto) 0.06 (0.00-0.20) K/uL Immature Gran # (Auto) 0.06 (0.01-0.20) K/uL PT 25.1 H (9.0-12.0) Seconds INR 2.5 H (0.9-1.1) APTT 46 H (21-31) Seconds PTT Ratio 1.7 VBG pH 7.40 (7.36-7.41) VBG pCO2 56 H (38-50) mmHg VBG pO2 < 20 mmHg VBG HCO3 35 mmol/L VBG O2 Saturation < 60.0 % VBG Base Excess 8.0 mEq/L Sodium 139 (136-145) mmol/L Potassium 3.8 (3.5-5.1) mmol/L Chloride 100 (98-107) mmol/L Carbon Dioxide 35 H (21-32) mmol/L Anion Gap 4 (3-11) BUN 7 (6-23) mg/dl Creatinine 0.78 (0.6-1.4) mg/dl Est Cr Clr Drug Dosing 188.0 ml/min eGFR 105.98 BUN/Creatinine Ratio 9.0 L (10-20) Glucose 208 H (70-99(Fasting)) mg/dl POC Glucose (70-99) mg/dl Lactate 1.5 (0.4-2.0) mmol/L Calcium 8.7 (8.6-10.3) mg/dl Phosphorus (2.5-4.9) mg/dl Magnesium 1.5 L (1.7-2.4) mg/dl Total Bilirubin 0.8 (0.2-1.0) mg/dl Direct Bilirubin 0.1 (0-0.2) mg/dl AST 15 (13-39) U/L ALT 11 (7-52) U/L Alkaline Phosphatase 118 H (34-104) U/L Ammonia 20.0 (18-72) umol/L Troponin I High Sens 4.1 (0-20) pg/ml C-Reactive Protein 3.05 H (0-0.5) mg/dl Total Protein 6.6 (6.0-8.3) gm/dl Albumin 3.2 L (3.4-5.0) gm/dl Globulin (2.5-4.0) gm/dl Albumin/Globulin Ratio (0.9-2) Vitamin B12 (180-914) pg/ml Procalcitonin 0.03 (0-0.5) ng/ml TSH (0.300-4.500) uIu/ml Urine Color [place] Urine Appearance Turbid A (Clear) Urine pH 6.0 (4.5-7.5) Ur Specific [place] 1.014 (1.000-1.030) Urine Protein 2+ H (Negative) Urine Glucose (UA) Negative (Negative) Urine Ketones Negative (Negative) Urine Blood 3+ H (Negative) Urine Nitrite Negative (Negative) Urine Bilirubin Negative (Negative) Urine Urobilinogen Negative (Negative) Ur Leukocyte Esterase 3+ H (Negative) Urine WBC (Auto) >50 H (0-5) /hpf Urine RBC (Auto) >20 H (0-2) /hpf U Hyaline Cast (Auto) 0-2 (0-2) /lpf U Epithel Cells (Auto) >20 H (0-2) /hpf Urine Bacteria (Auto) 4+ H (None Seen) Urine Comment Urine Opiates Screen Neg (Neg) Ur Methadone, Qual Neg (Neg) Urine Fentanyl Screen Neg (Neg) Urine Barbiturates Neg (Neg) Ur Phencyclidine (PCP) Neg (Neg) U Amphetamin/Meth Scrn Neg (Neg) MDMA (Ecstasy) Screen Neg (Neg) U Benzodiazepines Scrn Neg (Neg) Ur Cocaine Metabolite Neg (Neg) U Marijuana (THC) Screen Neg (Neg) Ethyl Alcohol mg/dL < 10.0 (<10.0) mg/dl Medications Administered Current Inpatient Medications Acetaminophen (Acetaminophen 325 Mg Tab) 650 mg PO Q4H PRN PRN Reason: Pain or Fever Stop: 05/05/25 16:55 Albuterol (Albut/Ipratrop 3mg/0.5mg Neb 3 Ml Vial) 3 ml INH TIDR [facility]; Protocol Stop: 05/05/25 18:59 Last Admin: 04/06/25 07:08 Dose: 3 ml Aspirin (Aspirin 81 Mg Ectab) 81 mg PO QAM [facility] Stop: 05/06/25 08:59 Atorvastatin Calcium (Atorvastatin 40 Mg Tab) 80 mg PO PM [facility] Stop: 05/05/25 20:59 Last Admin: 04/05/25 21:17 Dose: 80 mg Budesonide (Budesonide 0.5 Mg/2 Ml Vial (Pulmicort)) 0.5 mg INH BIDR [facility] Stop: 05/05/25 18:59 Last Admin: 04/06/25 07:08 Dose: 0.5 mg Buprenorphine HCl (Buprenorphine Hcl 8 Mg Subl) 8 mg SL TID [facility] Stop: 05/05/25 20:59 Last Admin: 04/05/25 21:18 Dose: 8 mg Dextrose (Dextrose 50% 50 Ml Syringe) 25 - 50 ml IV UD PRN; Protocol PRN Reason: Hypoglycemia Protocol Stop: 05/05/25 16:55 Duloxetine HCl (Duloxetine Hcl 60 Mg Cap) 60 mg PO QAM [facility] Stop: 05/06/25 08:59 Famotidine (Famotidine 20 Mg Tab) 20 mg PO HS [facility] Stop: 05/05/25 20:59 Last Admin: 04/05/25 21:18 Dose: 20 mg Ferrous Sulfate (Ferrous Sulfate 325 Mg Tab) 325 mg PO QAM [facility] Stop: 05/06/25 08:59 Finasteride (Finasteride 5 Mg Tab) 5 mg PO QAM [facility] Stop: 05/06/25 08:59 Fluticasone Propionate (Fluticasone Propionate Na Spr 16 Gm Btl) 2 sprays HANSA DAILY [facility] Stop: 05/06/25 08:59 Fluticasone/Vilanterol (Fluticasone/Vilanterol 100/25mcg 14 Puffs/Inhaler) 1 puffs INH DAILY [facility] Stop: 05/06/25 08:59 Folic Acid (Folic Acid 1 Mg Tab) 1 mg PO QAM [facility] Stop: 05/06/25 08:59 Furosemide (Furosemide 40 Mg Tab) 40 mg PO BID [facility] Stop: 05/05/25 20:59 Last Admin: 04/05/25 21:18 Dose: 40 mg Glucagon (Glucagon For Inj 1 Mg Vial) 1 mg SQ UD PRN; Protocol PRN Reason: Hypoglycemia Protocol Stop: 05/05/25 16:55 Glucose (Glucose 40% Gel 15 Gm Tube) 15 - 30 gm PO UD PRN; Protocol PRN Reason: Hypoglycemia Protocol Stop: 05/05/25 16:55 Glucose (Glucose 10 Tab/Tube) 4 - 8 tab PO UD PRN; Protocol PRN Reason: Hypoglycemia Protocol Stop: 05/05/25 16:55 Piperacillin Sod/Tazobactam Sod (Zosyn) 4.5 gm in 100 mls @ 25 mls/hr IV Q8H [facility]; Protocol Stop: 04/15/25 22:59 Last Admin: 04/06/25 06:20 Dose: 25 mls/hr Insulin Aspart (Insulin Aspart Per Unit Charge) 0 units SC ACHS [facility] Stop: 05/05/25 16:55 Last Admin: 04/05/25 21:18 Dose: 2 units Insulin Glargine (Lantus Per Unit Charge) 60 units SQ HS [facility] Stop: 05/05/25 20:59 Last Admin: 04/05/25 21:18 Dose: 60 units Isosorbide Dinitrate (Isosorbide Dinitrate 20 Mg Tab) 30 mg PO QAM [facility] Stop: 05/06/25 08:59 Lactobacillus Acidophilus (Advanced Probiotic 625 Mg Capsule) 625 mg PO DAILY [facility] Stop: 05/06/25 08:59 Magnesium Hydroxide (Magnesium Hydroxide Susp 30 Ml Udc) 30 ml PO Q12H PRN PRN Reason: Constipation Stop: 05/05/25 16:55 Magnesium Oxide (Magnesium Oxide 400 Mg Tab) 400 mg PO QAM [facility] Stop: 05/06/25 08:59 Metoprolol Succinate (Metoprolol Succ 25mg Ext Rel Tab) 75 mg PO BID [facility] Stop: 05/05/25 20:59 Last Admin: 04/05/25 21:18 Dose: 75 mg Miscellaneous (Remove Nicoderm Patch) 1 each N/A DAILY@0859 [facility] Stop: 05/06/25 08:58 Miscellaneous (Carbohydrates For Hypoglycemia ) 15 - 30 gm PO UD PRN PRN Reason: Hypoglycemia Protocol Stop: 05/05/25 16:55 Miscellaneous Information (Pharmacy Glycemic Mgmt Consult) 1 each N/A UD PRN PRN Reason: Consult Stop: 05/05/25 16:55 Nicotine (Nicotine 21 Mg/24 Hr Tdsy) 1 patch TD QAM [facility] Stop: 05/05/25 15:59 Last Admin: 04/05/25 18:50 Dose: 1 patch Ondansetron HCl (Ondansetron Inj 2 Mg/Ml 2 Ml Vial) 4 mg IV Q6H PRN PRN Reason: Nausea Stop: 05/05/25 16:55 Pantoprazole Sodium (Pantoprazole 40 Mg Tab) 40 mg PO BID [facility] Stop: 05/05/25 20:59 Last Admin: 04/05/25 21:18 Dose: 40 mg Polyethylene Glycol (Polyethylene (Miralax) 17 Gm Pack) 17 gm PO DAILY PRN PRN Reason: Constipation Stop: 05/05/25 16:55 Potassium Chloride (Potassium Chloride Crtab 20 Meq Tabcr) 20 meq PO BID [facility] Stop: 05/05/25 20:59 Last Admin: 04/05/25 21:18 Dose: 20 meq Spironolactone (Spironolactone 25 Mg Tab) 25 mg PO QAM [facility] Stop: 05/06/25 08:59 Tamsulosin HCl (Tamsulosin Hcl 0.4 Mg Cap) 0.4 mg PO DAILY [facility] Stop: 05/06/25 08:59 Umeclidinium Burns (Umeclidinium Burns 62.5mcg/Blister 7 Puffs/Inhaler) 1 puffs INH DAILY [facility] Stop: 05/06/25 08:59 Warfarin Sodium (Warfarin Sod 5 Mg Tab) 5 mg PO [id number]@1600 [facility] Stop: 05/06/25 15:59 Warfarin Sodium (Warfarin Sod 2.5 Mg Tab) 2.5 mg PO Th@1600 [facility] Stop: 05/05/25 18:59 Last Admin: 04/05/25 19:45 Dose: 2.5 mg (1) AMS (altered mental status) Altered mental status type: unspecified Qualified Code(s): R41.82 - Altered mental status, unspecified (3) Catheter-associated urinary tract infection Encounter type: initial encounter Indwelling urinary catheter type: unspecified Qualified Code(s): T83.511A - Infection and inflammatory reaction due to indwelling urethral catheter, initial encounter; N39.0 - Urinary tract infection, site not specified
--- NOTE | 2025-04-06 10:35 | Pharmacy Report ---
Pharmacy Glycemic Short Note 2 - Date of Service April 06, 2025 - Glycemic Short BSG Results (Last 24 hours): 04/05/25 04/05/25 04/05/25 13:14 16:51 20:16 Glucose 208 H POC Glucose 193 H 179 H 04/06/25 04/06/25 04/06/25 00:01 04:31 05:46 Glucose 133 H POC Glucose 124 H 140 H 04/06/25 07:55 Glucose POC Glucose 157 H OUTPATIENT ANTIDIABETIC REGIMEN: * Toujeo (U-300) 60 units SC qHS * Glipizide 10 mg PO BID Alc = 10.1% (03/14/25) ASSESSMENT: * Bill is a 54 yo T2DM with a complex PMH admitted last evening due to worsening confusion/AMS, concern for UTI in the setting of chronic fontaine. * He is well known to the Pharmacy glycemic consult service from past admissions. Typically requires ~80-100 units of SC insulin per day while admitted. Will continue current insulin orders as similar doses were well tolerated during February 2025 admission. PLAN FOR INPATIENT GLYCEMIC CONTROL: * Hold outpatient oral diabetes medications * Basal insulin * Lantus 60 units SQ HS * Bolus insulin * NovoLog per scale ACHS or Q6hrs while NPO * Goal Range: Low 110 mg/dL - High 140 mg/dL * Correction Factor: 20 mg/dL/unit * Nutritional / Prandial insulin per carb ratio of 1 unit per 4 grams CHO consumed
[2025-04-06] MEDS: LINEZOLID 600 MG TAB PO SCH (11:10)
[2025-04-06] MEDS: MAGNESIUM OXIDE 400 MG TAB PO SCH (11:11)
[2025-04-06] MEDS: FERROUS SULFATE 325 MG TAB PO SCH (11:11)
[2025-04-06] MEDS: ADVANCED PROBIOTIC 625 MG CAPSULE PO SCH (11:11)
[2025-04-06] MEDS: TAMSULOSIN HCL 0.4 MG CAP PO SCH (11:11)
[2025-04-06] MEDS: FLUTICASONE/VILANTEROL 100/25MCG 14 PUFFS/INHALER INH SCH (11:12)
[2025-04-06] MEDS: FLUTICASONE PROPIONATE NA SPR 16 GM BTL NAE SCH (11:12)
[2025-04-06] MEDS: SPIRONOLACTONE 25 MG TAB PO SCH (11:12)
[2025-04-06] MEDS: ISOSORBIDE DINITRATE 20 MG TAB PO SCH (11:13)
[2025-04-06] MEDS: UMECLIDINIUM BROMIDE 62.5MCG/BLISTER 7 PUFFS/INHALER INH SCH (11:14)
[2025-04-06] MEDS: FOLIC ACID 1 MG TAB PO SCH (11:14)
[2025-04-06] MEDS: FINASTERIDE 5 MG TAB PO SCH (11:16)
[2025-04-06] MEDS: ASPIRIN 81 MG ECTAB PO SCH (11:16)
[2025-04-06] MEDS: REMOVE NICODERM PATCH SCH (11:25)
[2025-04-06] MEDS: WARFARIN SOD 5 MG TAB PO SCH (18:16)
[2025-04-06] MEDS: CYANOCOBALAMIN (B-12) 500 MCG TABLET PO SCH (18:17)
[2025-04-07 07:25] LABS: INR 2.0 (0.9-1.1); Prothrombin Time 20.8 Seconds (9.0-12.0)
[2025-04-07 07:29] LABS: Hematocrit (blood only) 37.2 % (42.0-52.0); Hemoglobin 12.8 g/dl (14.0-18.0); Mean Corpuscular Hemoglobin 28.3 pg (25.0-34.0); Mean Corpuscular Volume 82.3 fL (80.0-100.0); Platelet Count 235 K/uL (130-400); RDW Standard Deviation 55.1 fL (36.4-46.3); Red Blood Count 4.52 M/uL (4.70-6.10); White Blood Count 11.91 K/ul (4.8-10.8)
--- NOTE | 2025-04-07 07:48 | Hospitalist Progress Note ---
Date of Service April 07, 2025 Assessment & Plan (1) AMS (altered mental status): (2) Metabolic encephalopathy: (3) Catheter-associated urinary tract infection: (4) Hypomagnesemia: Plan Patient is a medically complex 54-year-old male with past medical history significant for chronic diastolic heart failure [EF = 55-59%; TTE 03/2024], chronic venous insufficiency, history of SVT, CAD, history of STEMI, history of subdural hematoma/subarachnoid hemorrhage with no operative intervention, HTN, HLD, COPD, DARIA intolerant to CPAP, history of PE on Coumadin, insulin-requiring DMII with diabetic peripheral neuropathy, GERD, ARNOLD, BPH/chronic urinary retention with chronic indwelling Lloyd catheter placement c/b recurrent UTIs, mood disorder, chronic pain syndrome, opioid dependence with history of drug overdose on buprenorphine, low testosterone, tobacco use disorder and other problems listed below who presented to the ED via EMS due to worsening confusion/AMS. Poor historian. Patient is very drowsy and lethargic in the ED - difficult to obtain much history because of this. However, patient able to communicate that he has "not been feeling well" over the past several days. #AMS #Metabolic encephalopathy Likely 2/[address]: no hemorrhage, mass effect or evidence of acute territorial ischemia VBG c/w chronic hypercapnia --> likely related to obesity hypoventilation syndrome given body habitus Urine tox negative EtOH level undetectable Blood cultx pending Urine cultx positive for Enterococcus faecium VRE -> abx was changed to linezolid Hold gabapentin for now TSH wnl /vit B12 level Avoid sedating agents as able Neurochecks Q4H for now 04/07 Pt is sitting up, awake, eating by himself. Sometimes answers questions , sometimes does not. Sometime makes eye contact and sometimes does not. Answers appropriately. Appears depressed, asked about psychiatry consult and pt shakes his head no - as not interested. Will cont. to monitor and re-evaluate. #CAUTI #H/o recurrent UTIs #Chronic indwelling Lloyd catheter 2/2 chronic urinary retention WBC 13-14k -> down to 11K Urine cx - posit. for Enterococcus faecium - discussed w/ pharm. and started on linezolid Lactate negative Procal pending S/p dose of IV cefepime in ED -Pt noted to have allergy to cefepime --> could not confirm w/ pt - per admitting provider -D/w ED pharmacist, December --> based on prior urine cx/ABX allergies, will c/w IV Zosyn for now pending cx results -> changed to linezolid as above Lloyd cath exchanged on admission #Hypomagnesemia Mag 1.5 replete and monitor #HLD #CAD, h/o STEMI Continue statin, ASA Continue Imdur #Neuropathy Continue Cymbalta Hold gabapentin for now, as per above, given AMS #GERD Continue PPI, Pepcid #H/o PE INR therapeutic Continue Coumadin w/ daily INR monitoring --> adjust dose PRN #DMII, uncontrolled Hgb A1c 10.1 as of 03/14/25 Hold home reg Basal/bolus reg while inpt Appreciate glycemic pharm assistance Follow BSG checks ACHS #ARNOLD Hgb stable Continue iron supplementation #BPH Continue Proscar, Flomax #COPD No s/sx of acute exacerbation CXR: stable exam, no acute findings Continue home inhalers/nebs #HTN Continue BB w/ hold parameters #Chronic diastolic HF Appears euvolemic on exam Continue home diuretic regimen/K+ supplementation #Chronic pain syndrome Pt previously on oxy -Pt states he stopped taking this --> oxy was removed from med list Continue buprenorphine #Tobacco use disorder Nicotine patch ordered #Chronically elevated of alk phos --> appears around baseline, continue to monitor LFTs #DARIA Prev intolerant to CPAP Will trial CPAP again while inpt DVT Prophylaxis: Coumadin Code Status: FULL CODE Disposition: med/tele Admission and Anticipated Discharge Date Admission Date: April 05, 2025 Subjective Pt seen in follow up of AMS, likely secondary to UTI, chronic Lloyd Currently sitting up on the edge of the bed in NAD, appears comfortable. Pt is awake, eyes open, but is not talking much. He answers most questions appropriately though. He is following commands, also nods as yes, and shakes his head no. Did not eat breakfast and did not take AM meds. Pt seen again later and ate all of his lunch (chicken, potatoes and vegetable salad, applied dressing on the salad as well by himself, and watching construction outside of his window. Tells me he is feeling fine. Denies having any complaints. Denies having any issues with staff. Denies having any issues / reaction to medications but does not elaborate why he did not take his meds in the morning. Pt later took meds after lunch. Per RN required persuation, however yesterday took his medications without any issues. Pt chooses to answer some questions and some not, again does not elaborate much. Sometimes makes an eye contact and answers clearly and sometimes not. he does not appear in any distress, appears depressed. Vital signs normal, afebrile. Mild edema noted on R hand where IV is placed, pt shows me his left hand without any hesitation when prompted, and L hand does not show any edema. Asked if he would like something else to eat, as yesterday he was having ice cream and soda. He was ok with ice cream today again. Review of Systems Review of Systems: All systems reviewed & are unremarkable except as noted in Subjective Physical Exam Physical Exam: General Appearance:Morbidly Obese M in NAD Head: normocephalic, Atraumatic Eyes: normal inspection, EOMI Neck: supple Respiratory/Chest: Decreased breath sounds, clear to auscultation, No accessory muscle use Cardiovascular: S1, S2, No murmur Abdomen/GI:Soft, Non tender, Bowel sounds present, + obese abdomen Extremities/Musculoskeletal:normal inspection, LE edema, + chronic venous stasis changes Neurologic/Psych:AAOX3, awake, interacts and follows simple commands but does not talk much, EOMI, no facial asymmetry, moves extremities Skin: normal color, warm Results & Data Results & Data Vital Signs (Past 12 Hours) Vital Signs Temp Pulse Pulse Resp BP Pulse Ox Pulse Ox 04/07/25 07:21 36.5 C 65 18 115/75 93 04/07/25 03:41 36.6 C 65 18 92/52 L 93 04/07/25 02:32 56 L 04/06/25 23:29 95 04/06/25 23:22 36.7 C 59 L 16 86/59 L 95 04/06/25 20:38 O2 Del Method O2 Del Method 04/07/25 07:21 Room Air 04/07/25 03:41 Room Air 04/07/25 02:32 04/06/25 23:29 Room Air 04/06/25 23:22 Room Air 04/06/25 20:38 Room Air, Nasal Cannula Laboratory Results 04/07/25 04/06/25 04/06/25 Range/Units 06:25 20:22 17:09 WBC 11.91 H (4.8-10.8) K/ul RBC 4.52 L (4.70-6.10) M/uL Hgb 12.8 L (14.0-18.0) g/dl Hct 37.2 L (42.0-52.0) % MCV 82.3 (80.0-100.0) fL MCH 28.3 (25.0-34.0) pg MCHC 34.4 (32.0-36.0) g/dL RDW Std Deviation 55.1 H (36.4-46.3) fL RDW Coeff of Megan 18.6 H (11.5-14.5) % Plt Count 235 (130-400) K/uL MPV 11.2 (9.4-12.4) fL PT 20.8 H (9.0-12.0) Seconds INR 2.0 H (0.9-1.1) Sodium Pending Potassium Pending Chloride Pending Carbon Dioxide Pending Anion Gap Pending BUN Pending Creatinine Pending Est Cr Clr Drug Dosing Pending eGFR Pending BUN/Creatinine Ratio Pending Glucose Pending POC Glucose 195 H 170 H (70-99) mg/dl Calcium Pending Phosphorus Pending Magnesium Pending 04/06/25 04/06/25 Range/Units 11:58 07:55 WBC (4.8-10.8) K/ul RBC (4.70-6.10) M/uL Hgb (14.0-18.0) g/dl Hct (42.0-52.0) % MCV (80.0-100.0) fL MCH (25.0-34.0) pg MCHC (32.0-36.0) g/dL RDW Std Deviation (36.4-46.3) fL RDW Coeff of Megan (11.5-14.5) % Plt Count (130-400) K/uL MPV (9.4-12.4) fL PT (9.0-12.0) Seconds INR (0.9-1.1) Sodium Potassium Chloride Carbon Dioxide Anion Gap BUN Creatinine Est Cr Clr Drug Dosing eGFR BUN/Creatinine Ratio Glucose POC Glucose 191 H 157 H (70-99) mg/dl Calcium Phosphorus Magnesium Medications Administered Current Inpatient Medications Acetaminophen (Acetaminophen 325 Mg Tab) 650 mg PO Q4H PRN PRN Reason: Pain or Fever Stop: 05/05/25 16:55 Albuterol (Albut/Ipratrop 3mg/0.5mg Neb 3 Ml Vial) 3 ml INH TIDR EMPERATRIZ; Protocol Stop: 05/05/25 18:59 Last Admin: 04/07/25 07:38 Dose: Not Given Aspirin (Aspirin 81 Mg Ectab) 81 mg PO QAM [facility] Stop: 05/06/25 08:59 Last Admin: 04/06/25 11:16 Dose: 81 mg Atorvastatin Calcium (Atorvastatin 40 Mg Tab) 80 mg PO PM EMPERATRIZ Stop: 05/05/25 20:59 Last Admin: 04/06/25 21:31 Dose: 80 mg Budesonide (Budesonide 0.5 Mg/2 Ml Vial (Pulmicort)) 0.5 mg INH BIDR [facility]MPERATRIZ Stop: 05/05/25 18:59 Last Admin: 04/07/25 07:38 Dose: Not Given Buprenorphine HCl (Buprenorphine Hcl 8 Mg Subl) 8 mg SL TID EMPERATRIZ Stop: 05/05/25 20:59 Last Admin: 04/06/25 21:32 Dose: Not Given Cyanocobalamin (Cyanocobalamin (B-12) 500 Mcg Tablet) 500 mcg PO QAM [facility] Stop: 05/06/25 14:14 Last Admin: 04/06/25 18:17 Dose: 500 mcg Dextrose (Dextrose 50% 50 Ml Syringe) 25 - 50 ml IV UD PRN; Protocol PRN Reason: Hypoglycemia Protocol Stop: 05/05/25 16:55 Duloxetine HCl (Duloxetine Hcl 60 Mg Cap) 60 mg PO QAM [facility] Stop: 05/06/25 08:59 Last Admin: 04/06/25 11:15 Dose: 60 mg Famotidine (Famotidine 20 Mg Tab) 20 mg PO HS EMPERATRIZ Stop: 05/05/25 20:59 Last Admin: 04/06/25 21:31 Dose: 20 mg Ferrous Sulfate (Ferrous Sulfate 325 Mg Tab) 325 mg PO QAM [facility] Stop: 05/06/25 08:59 Last Admin: 04/06/25 11:11 Dose: 325 mg Finasteride (Finasteride 5 Mg Tab) 5 mg PO QAM [facility] Stop: 05/06/25 08:59 Last Admin: 04/06/25 11:16 Dose: 5 mg Fluticasone Propionate (Fluticasone Propionate Na Spr 16 Gm Btl) 2 sprays HANSA DAILY [facility] Stop: 05/06/25 08:59 Last Admin: 04/06/25 11:12 Dose: 2 sprays Fluticasone/Vilanterol (Fluticasone/Vilanterol 100/25mcg 14 Puffs/Inhaler) 1 puffs INH DAILY [facility] Stop: 05/06/25 08:59 Last Admin: 04/06/25 11:12 Dose: 1 puffs Folic Acid (Folic Acid 1 Mg Tab) 1 mg PO QAM [facility] Stop: 05/06/25 08:59 Last Admin: 04/06/25 11:14 Dose: 1 mg Furosemide (Furosemide 40 Mg Tab) 40 mg PO BID [facility] Stop: 05/05/25 20:59 Last Admin: 04/06/25 21:33 Dose: Not Given Glucagon (Glucagon For Inj 1 Mg Vial) 1 mg SQ UD PRN; Protocol PRN Reason: Hypoglycemia Protocol Stop: 05/05/25 16:55 Glucose (Glucose 40% Gel 15 Gm Tube) 15 - 30 gm PO UD PRN; Protocol PRN Reason: Hypoglycemia Protocol Stop: 05/05/25 16:55 Glucose (Glucose 10 Tab/Tube) 4 - 8 tab PO UD PRN; Protocol PRN Reason: Hypoglycemia Protocol Stop: 05/05/25 16:55 Insulin Aspart (Insulin Aspart Per Unit Charge) 0 units SC ACHS [facility] Stop: 05/05/25 16:55 Last Admin: 04/06/25 21:27 Dose: 3 units Insulin Glargine (Lantus Per Unit Charge) 60 units SQ HS [facility] Stop: 05/05/25 20:59 Last Admin: 04/06/25 21:28 Dose: 60 units Isosorbide Dinitrate (Isosorbide Dinitrate 20 Mg Tab) 30 mg PO QAM [facility] Stop: 05/06/25 08:59 Last Admin: 04/06/25 11:13 Dose: 30 mg Lactobacillus Acidophilus (Advanced Probiotic 625 Mg Capsule) 625 mg PO DAILY [facility] Stop: 05/06/25 08:59 Last Admin: 04/06/25 11:11 Dose: 625 mg Linezolid (Linezolid 600 Mg Tab) 600 mg PO BID [facility] Stop: 04/12/25 23:59 Last Admin: 04/06/25 21:34 Dose: 600 mg Magnesium Hydroxide (Magnesium Hydroxide Susp 30 Ml Udc) 30 ml PO Q12H PRN PRN Reason: Constipation Stop: 05/05/25 16:55 Magnesium Oxide (Magnesium Oxide 400 Mg Tab) 400 mg PO QAM [facility] Stop: 05/06/25 08:59 Last Admin: 04/06/25 11:11 Dose: 400 mg Metoprolol Succinate (Metoprolol Succ 25mg Ext Rel Tab) 75 mg PO BID [facility] Stop: 05/05/25 20:59 Last Admin: 04/06/25 21:34 Dose: Not Given Miscellaneous (Remove Nicoderm Patch) 1 each N/A DAILY@0859 [facility] Stop: 05/06/25 08:58 Last Admin: 04/06/25 11:25 Dose: 1 each Miscellaneous (Carbohydrates For Hypoglycemia ) 15 - 30 gm PO UD PRN PRN Reason: Hypoglycemia Protocol Stop: 05/05/25 16:55 Miscellaneous Information (Pharmacy Glycemic Mgmt Consult) 1 each N/A UD PRN PRN Reason: Consult Stop: 05/05/25 16:55 Nicotine (Nicotine 21 Mg/24 Hr Tdsy) 1 patch TD QAM [facility] Stop: 05/05/25 15:59 Last Admin: 04/06/25 11:15 Dose: 1 patch Ondansetron HCl (Ondansetron Inj 2 Mg/Ml 2 Ml Vial) 4 mg IV Q6H PRN PRN Reason: Nausea Stop: 05/05/25 16:55 Pantoprazole Sodium (Pantoprazole 40 Mg Tab) 40 mg PO BID [facility] Stop: 05/05/25 20:59 Last Admin: 04/06/25 21:34 Dose: 40 mg Polyethylene Glycol (Polyethylene (Miralax) 17 Gm Pack) 17 gm PO DAILY PRN PRN Reason: Constipation Stop: 05/05/25 16:55 Potassium Chloride (Potassium Chloride Crtab 20 Meq Tabcr) 20 meq PO BID [facility] Stop: 05/05/25 20:59 Last Admin: 04/06/25 21:34 Dose: Not Given Spironolactone (Spironolactone 25 Mg Tab) 25 mg PO QAM [facility] Stop: 05/06/25 08:59 Last Admin: 04/06/25 11:12 Dose: 25 mg Tamsulosin HCl (Tamsulosin Hcl 0.4 Mg Cap) 0.4 mg PO DAILY [facility] Stop: 05/06/25 08:59 Last Admin: 04/06/25 11:11 Dose: 0.4 mg Umeclidinium [place] (Umeclidinium [place] 62.5mcg/Blister 7 Puffs/Inhaler) 1 puffs INH DAILY [facility] Stop: 05/06/25 08:59 Last Admin: 04/06/25 11:14 Dose: 1 puffs Warfarin Sodium (Warfarin Sod 5 Mg Tab) 5 mg PO [id number]@1600 [facility] Stop: 05/06/25 15:59 Last Admin: 04/06/25 18:16 Dose: 5 mg Warfarin Sodium (Warfarin Sod 2.5 Mg Tab) 2.5 mg PO Th@1600 [facility] Stop: 05/05/25 18:59 Last Admin: 04/05/25 19:45 Dose: 2.5 mg (1) AMS (altered mental status) Altered mental status type: unspecified Qualified Code(s): R41.82 - Altered mental status, unspecified (3) Catheter-associated urinary tract infection Encounter type: initial encounter Indwelling urinary catheter type: unspeci fied Qualified Code(s): T83.511A - Infection and inflammatory reaction due to indwelling urethral catheter, initial encounter; N39.0 - Urinary tract i nfection, site not specified
[2025-04-07 07:49] LABS: Anion Gap 6.0 (3-11); Blood Urea Nitrogen 7.0 mg/dl (6-23); Calcium 8.8 mg/dl (8.6-10.3); Carbon Dioxide 32.0 mmol/L (21-32); Chloride 103.0 mmol/L (98-107); Creatinine Clr Calc Pharmacy 173.1 ml/min; Glucose 162.0 mg/dl (70-99(Fasting)); Magnesium 1.8 mg/dl (1.7-2.4); Potassium 3.3 mmol/L (3.5-5.1); Sodium 141.0 mmol/L (136-145)
[2025-04-07] MEDS ORDERED: SODIUM CHLORIDE 0.65% NA SOLN 45 ML (OCEAN) PRN (10:29)
[2025-04-07] MEDS: POTASSIUM CHLORIDE / WTR 10 MEQ/100 ML PLCT IV SCH (11:27)
[2025-04-07] MEDS: POTASSIUM CHLORIDE CRTAB 20 MEQ TABCR PO STA (11:33)
[2025-04-07] MEDS: FUROSEMIDE INJ 20 MG/2 ML VIAL IV ONE (17:53)
[2025-04-08] MEDS: POTASSIUM CHLORIDE CRTAB 20 MEQ TABCR PO STA (01:15)
[2025-04-08 07:01] LABS: Hematocrit (blood only) 38.5 % (42.0-52.0); Hemoglobin 12.7 g/dl (14.0-18.0); INR 2.7 (0.9-1.1); Mean Corpuscular Hemoglobin 27.3 pg (25.0-34.0); Mean Corpuscular Volume 82.8 fL (80.0-100.0); Platelet Count 228 K/uL (130-400); Prothrombin Time 26.5 Seconds (9.0-12.0); RDW Standard Deviation 55.8 fL (36.4-46.3); Red Blood Count 4.65 M/uL (4.70-6.10); White Blood Count 11.57 K/ul (4.8-10.8)
[2025-04-08 07:38] LABS: Anion Gap 5.0 (3-11); Blood Urea Nitrogen 9.0 mg/dl (6-23); Calcium 9.0 mg/dl (8.6-10.3); Carbon Dioxide 32.0 mmol/L (21-32); Chloride 103.0 mmol/L (98-107); Creatinine Clr Calc Pharmacy 169.2 ml/min; Glucose 168.0 mg/dl (70-99(Fasting)); Magnesium 1.8 mg/dl (1.7-2.4); Potassium 3.8 mmol/L (3.5-5.1); Sodium 140.0 mmol/L (136-145)
[2025-04-08] MEDS ORDERED: BUDESONIDE 0.5 MG/2 ML VIAL (PULMICORT) INH PRN (11:07)
[2025-04-08] MEDS ORDERED: ALBUT/IPRATROP 3MG/0.5MG NEB 3 ML VIAL INH PRN (11:08)
--- NOTE | 2025-04-08 14:21 | Hospitalist Progress Note ---
Date of Service April 08, 2025 Assessment & Plan (1) AMS (altered mental status): (2) Metabolic encephalopathy: (3) Catheter-associated urinary tract infection: (4) Hypomagnesemia: Plan Patient is a medically complex 54-year-old male with past medical history significant for chronic diastolic heart failure [EF = 55-59%; TTE 03/2024], chronic venous insufficiency, history of SVT, CAD, history of STEMI, history of subdural hematoma/subarachnoid hemorrhage with no operative intervention, HTN, HLD, COPD, DARIA intolerant to CPAP, history of PE on Coumadin, insulin-requiring DMII with diabetic peripheral neuropathy, GERD, ARNOLD, BPH/chronic urinary retention with chronic indwelling Lloyd catheter placement c/b recurrent UTIs, mood disorder, chronic pain syndrome, opioid dependence with history of drug overdose on buprenorphine, low testosterone, tobacco use disorder and other problems listed below who presented to the ED via EMS due to worsening confusion/AMS. Poor historian. Patient is very drowsy and lethargic in the ED - difficult to obtain much history because of this. However, patient able to communicate that he has "not been feeling well" over the past several days. #AMS - resolved #Metabolic encephalopathy - resolved Likely 2/[address]: no hemorrhage, mass effect or evidence of acute territorial ischemia VBG c/w chronic hypercapnia --> likely related to obesity hypoventilation syndrome given body habitus Urine tox negative EtOH level undetectable Blood cultx pending Urine cultx positive for Enterococcus faecium VRE -> abx was changed to linezolid Hold gabapentin for now TSH wnl /vit B12 level Avoid sedating agents as able Neurochecks Q4H for now 04/07 Pt is sitting up, awake, eating by himself. Sometimes answers questions , sometimes does not. Sometime makes eye contact and sometimes does not. Answers appropriately. Appears depressed, asked about psychiatry consult and pt shakes his head no - as not interested. Will cont. to monitor and re-evaluate. 04/08 Pt is sitting up in chair in NAD, awake, alert, answering appropriately. He is reading medical notes on his phone and questions information in them. Reports feeling much improved but not yet to his baseline. #CAUTI #H/o recurrent UTIs #Chronic indwelling Lloyd catheter 2/2 chronic urinary retention WBC 13-14k -> down to 11K Urine cx - posit. for Enterococcus faecium - discussed w/ pharm. and started on linezolid Lactate negative Procal negative S/p dose of IV cefepime in ED -Pt noted to have allergy to cefepime --> could not confirm w/ pt - per admitting provider -D/w ED pharmacist, December --> based on prior urine cx/ABX allergies, was started on IV Zosyn on admission -> changed to linezolid as above, given cultx Lloyd cath exchanged on admission #Hypomagnesemia Mag 1.5 replete and monitor #HLD #CAD, h/o STEMI Continue statin, ASA Continue Imdur #Neuropathy Continue Cymbalta Hold gabapentin for now, as per above, given AMS Pt's mental status back to baseline and he wishes his gabapentin to be resumed - agreed to resume at lower dose 300 tid #GERD Continue PPI, Pepcid #H/o PE INR therapeutic Continue Coumadin w/ daily INR monitoring --> adjust dose PRN #DMII, uncontrolled Hgb A1c 10.1 as of 03/14/25 Hold home reg Basal/bolus reg while inpt Appreciate glycemic pharm assistance Follow BSG checks ACHS #ARNOLD Hgb stable Continue iron supplementation #BPH Continue Proscar, Flomax #COPD No s/sx of acute exacerbation CXR: stable exam, no acute findings Continue home inhalers/nebs #HTN Continue BB w/ hold parameters #Chronic diastolic HF Appears euvolemic on exam Continue home diuretic regimen/K+ supplementation #Chronic pain syndrome Pt previously on oxy -Pt stated on admission that he stopped taking this --> oxy was removed from med list on admission -> now he says he takes 10 mg bid Continue buprenorphine #Tobacco use disorder Nicotine patch ordered #Chronically elevated of alk phos --> appears around baseline, continue to monitor LFTs #DARIA Prev intolerant to CPAP Will trial CPAP again while inpt DVT Prophylaxis: Coumadin Code Status: FULL CODE Disposition: med/tele Admission and Anticipated Discharge Date Admission Date: April 05, 2025 Subjective Pt seen in follow up of AMS, likely secondary to UTI, chronic Lloyd Currently sitting up in chair in NAD, feeling well, awake,alert oriented, conversing easily. He is reading medical notes on his phone and questions information in them. Says he remembers talking to me yesterday but does not rem ember everything. Reports feeling much improved but not yet to his baseline. Review of Systems Review of Systems: All systems reviewed & are unremarkable except as noted in Subjective Physical Exam Physical Exam: General Appearance:Morbidly Obese M in NAD Head: normocephalic, Atraumatic Eyes: normal inspection, EOMI Neck: supple Respiratory/Chest: Decreased breath sounds, clear to auscultation, No accessory muscle use Cardiovascular: S1, S2, No murmur Abdomen/GI:Soft, Non tender, Bowel sounds present, + obese abdomen Extremities/Musculoskeletal:normal inspection, LE edema, + chronic venous stasis changes Neurologic/Psych:AAOX3, awake, interacts and follows simple commands but does not talk much, EOMI, no facial asymmetry, moves extremities Skin: normal color, warm Results & Data Results & Data Vital Signs (Past 12 Hours) Vital Signs Temp Pulse Pulse Resp BP Pulse Ox O2 Del Method 04/08/25 12:38 36.8 C 82 18 124/69 94 Room Air 04/08/25 07:53 36.6 C 71 18 116/73 93 Room Air 04/08/25 07:29 60 04/08/25 03:31 36.6 C 74 16 99/50 L 94 Room Air Laboratory Results 04/08/25 04/08/25 04/08/25 Range/Units 12:09 08:08 06:38 WBC 11.57 H (4.8-10.8) K/ul RBC 4.65 L (4.70-6.10) M/uL Hgb 12.7 L (14.0-18.0) g/dl Hct 38.5 L (42.0-52.0) % MCV 82.8 (80.0-100.0) fL MCH 27.3 (25.0-34.0) pg MCHC 33.0 (32.0-36.0) g/dL RDW Std Deviation 55.8 H (36.4-46.3) fL RDW Coeff of Megan 18.9 H (11.5-14.5) % Plt Count 228 (130-400) K/uL MPV 11.0 (9.4-12.4) fL PT 26.5 H (9.0-12.0) Seconds INR 2.7 H (0.9-1.1) Sodium 140 (136-145) mmol/L Potassium 3.8 (3.5-5.1) mmol/L Chloride 103 (98-107) mmol/L Carbon Dioxide 32 (21-32) mmol/L Anion Gap 5 (3-11) BUN 9 (6-23) mg/dl Creatinine 0.84 (0.6-1.4) mg/dl Est Cr Clr Drug Dosing 169.2 ml/min eGFR 103.63 BUN/Creatinine Ratio 10.7 (10-20) Glucose 168 H (70-99(Fasting)) mg/dl POC Glucose 202 H 158 H (70-99) mg/dl Calcium 9.0 (8.6-10.3) mg/dl Phosphorus 3.6 (2.5-4.9) mg/dl Magnesium 1.8 (1.7-2.4) mg/dl 04/07/25 04/07/25 Range/Units 20:07 17:01 WBC (4.8-10.8) K/ul RBC (4.70-6.10) M/uL Hgb (14.0-18.0) g/dl Hct (42.0-52.0) % MCV (80.0-100.0) fL MCH (25.0-34.0) pg MCHC (32.0-36.0) g/dL RDW Std Deviation (36.4-46.3) fL RDW Coeff of Megan (11.5-14.5) % Plt Count (130-400) K/uL MPV (9.4-12.4) fL PT (9.0-12.0) Seconds INR (0.9-1.1) Sodium (136-145) mmol/L Potassium (3.5-5.1) mmol/L Chloride (98-107) mmol/L Carbon Dioxide (21-32) mmol/L Anion Gap (3-11) BUN (6-23) mg/dl Creatinine (0.6-1.4) mg/dl Est Cr Clr Drug Dosing ml/min eGFR BUN/Creatinine Ratio (10-20) Glucose (70-99(Fasting)) mg/dl POC Glucose 172 H 164 H (70-99) mg/dl Calcium (8.6-10.3) mg/dl Phosphorus (2.5-4.9) mg/dl Magnesium (1.7-2.4) mg/dl Medications Administered Current Inpatient Medications Acetaminophen (Acetaminophen 325 Mg Tab) 650 mg PO Q4H PRN PRN Reason: Pain or Fever Stop: 05/05/25 16:55 Albuterol (Albut/Ipratrop 3mg/0.5mg Neb 3 Ml Vial) 3 ml INH TIDR PRN; Protocol PRN Reason: Shortness Of Breath Or Wheezing Stop: 05/05/25 18:59 Aspirin (Aspirin 81 Mg Ectab) 81 mg PO QAM EMPERATRIZ Stop: 05/06/25 08:59 Last Admin: 04/08/25 11:26 Dose: 81 mg Atorvastatin Calcium (Atorvastatin 40 Mg Tab) 80 mg PO PM EMPERATRIZ Stop: 05/05/25 20:59 Last Admin: 04/07/25 21:20 Dose: 80 mg Budesonide (Budesonide 0.5 Mg/2 Ml Vial (Pulmicort)) 0.5 mg INH BIDR PRN PRN Reason: Shortness Of Breath Or Wheezing Stop: 05/05/25 18:59 Buprenorphine HCl (Buprenorphine Hcl 8 Mg Subl) 8 mg SL TID EMPERATRIZ Stop: 05/05/25 20:59 Last Admin: 04/08/25 11:23 Dose: 8 mg Cyanocobalamin (Cyanocobalamin (B-12) 500 Mcg Tablet) 500 mcg PO QAM EMPERATRIZ Stop: 05/06/25 14:14 Last Admin: 04/08/25 11:26 Dose: 500 mcg Dextrose (Dextrose 50% 50 Ml Syringe) 25 - 50 ml IV UD PRN; Protocol PRN Reason: Hypoglycemia Protocol Stop: 05/05/25 16:55 Duloxetine HCl (Duloxetine Hcl 60 Mg Cap) 60 mg PO QAM EMPERATRIZ Stop: 05/06/25 08:59 Last Admin: 04/08/25 11:26 Dose: 60 mg Famotidine (Famotidine 20 Mg Tab) 20 mg PO HS EMPERATRIZ Stop: 05/05/25 20:59 Last Admin: 04/07/25 21:18 Dose: 20 mg Ferrous Sulfate (Ferrous Sulfate 325 Mg Tab) 325 mg PO QAM [facility]MPERATRIZ Stop: 05/06/25 08:59 Last Admin: 04/08/25 11:25 Dose: 325 mg Finasteride (Finasteride 5 Mg Tab) 5 mg PO QAM [facility] Stop: 05/06/25 08:59 Last Admin: 04/08/25 11:27 Dose: 5 mg Fluticasone Propionate (Fluticasone Propionate Na Spr 16 Gm Btl) 2 sprays HANSA DAILY EMPERATRIZ Stop: 05/06/25 08:59 Last Admin: 04/08/25 11:28 Dose: 2 sprays Fluticasone/Vilanterol (Fluticasone/Vilanterol 100/25mcg 14 Puffs/Inhaler) 1 puffs INH DAILY EMPERATRIZ Stop: 05/06/25 08:59 Last Admin: 04/08/25 11:27 Dose: 1 puffs Folic Acid (Folic Acid 1 Mg Tab) 1 mg PO QAM [facility]MPERATRIZ Stop: 05/06/25 08:59 Last Admin: 04/08/25 11:25 Dose: 1 mg Furosemide (Furosemide 40 Mg Tab) 40 mg PO BID EMPERATRIZ Stop: 05/05/25 20:59 Last Admin: 04/08/25 11:25 Dose: 40 mg Glucagon (Glucagon For Inj 1 Mg Vial) 1 mg SQ UD PRN; Protocol PRN Reason: Hypoglycemia Protocol Stop: 05/05/25 16:55 Glucose (Glucose 40% Gel 15 Gm Tube) 15 - 30 gm PO UD PRN; Protocol PRN Reason: Hypoglycemia Protocol Stop: 05/05/25 16:55 Glucose (Glucose 10 Tab/Tube) 4 - 8 tab PO UD PRN; Protocol PRN Reason: Hypoglycemia Protocol Stop: 05/05/25 16:55 Insulin Aspart (Insulin Aspart Per Unit Charge) 0 units SC ACHS EMPERATRIZ Stop: 05/05/25 16:55 Last Admin: 04/08/25 11:29 Dose: 7 units Insulin Glargine (Lantus Per Unit Charge) 65 units SQ HS [facility] Stop: 05/08/25 20:59 Isosorbide Dinitrate (Isosorbide Dinitrate 20 Mg Tab) 30 mg PO QAM [facility] Stop: 05/06/25 08:59 Last Admin: 04/08/25 11:25 Dose: 30 mg Lactobacillus Acidophilus (Advanced Probiotic 625 Mg Capsule) 625 mg PO DAILY [facility] Stop: 05/06/25 08:59 Last Admin: 04/08/25 11:26 Dose: 625 mg Linezolid (Linezolid 600 Mg Tab) 600 mg PO BID [facility] Stop: 04/12/25 23:59 Last Admin: 04/08/25 11:27 Dose: 600 mg Magnesium Hydroxide (Magnesium Hydroxide Susp 30 Ml Udc) 30 ml PO Q12H PRN PRN Reason: Constipation Stop: 05/05/25 16:55 Magnesium Oxide (Magnesium Oxide 400 Mg Tab) 400 mg PO QAM [facility] Stop: 05/06/25 08:59 Last Admin: 04/08/25 11:25 Dose: 400 mg Metoprolol Succinate (Metoprolol Succ 25mg Ext Rel Tab) 75 mg PO BID [facility] Stop: 05/05/25 20:59 Last Admin: 04/08/25 11:24 Dose: 75 mg Miscellaneous (Remove Nicoderm Patch) 1 each N/A DAILY@0859 [facility] Stop: 05/06/25 08:58 Last Admin: 04/08/25 11:28 Dose: 1 each Miscellaneous (Carbohydrates For Hypoglycemia ) 15 - 30 gm PO UD PRN PRN Reason: Hypoglycemia Protocol Stop: 05/05/25 16:55 Miscellaneous Information (Pharmacy Glycemic Mgmt Consult) 1 each N/A UD PRN PRN Reason: Consult Stop: 05/05/25 16:55 Nicotine (Nicotine 21 Mg/24 Hr Tdsy) 1 patch TD [facility] Stop: 05/05/25 15:59 Last Admin: 04/08/25 11:28 Dose: 1 patch Ondansetron HCl (Ondansetron Inj 2 Mg/Ml 2 Ml Vial) 4 mg IV Q6H PRN PRN Reason: Nausea Stop: 05/05/25 16:55 Pantoprazole Sodium (Pantoprazole 40 Mg Tab) 40 mg PO BID [facility] Stop: 05/05/25 20:59 Last Admin: 04/08/25 11:25 Dose: 40 mg Polyethylene Glycol (Polyethylene (Miralax) 17 Gm Pack) 17 gm PO DAILY PRN PRN Reason: Constipation Stop: 05/05/25 16:55 Potassium Chloride (Potassium Chloride Crtab 20 Meq Tabcr) 20 meq PO BID [facility] Stop: 05/05/25 20:59 Last Admin: 04/08/25 11:23 Dose: 20 meq Sodium Chloride (Sodium Chloride 0.65% Na Soln 45 Ml ([place])) 1 sprays NA QID PRN PRN Reason: Nasal Congestion Stop: 05/07/25 10:28 Spironolactone (Spironolactone 25 Mg Tab) 25 mg PO QAM [facility] Stop: 05/06/25 08:59 Last Admin: 04/08/25 11:27 Dose: 25 mg Tamsulosin HCl (Tamsulosin Hcl 0.4 Mg Cap) 0.4 mg PO DAILY [facility] Stop: 05/06/25 08:59 Last Admin: 04/08/25 11:25 Dose: 0.4 mg Umeclidinium Lenora (Umeclidinium Lenora 62.5mcg/Blister 7 Puffs/Inhaler) 1 puffs INH DAILY [facility] Stop: 05/06/25 08:59 Last Admin: 04/08/25 11:27 Dose: 1 puffs Warfarin Sodium (Warfarin Sod 5 Mg Tab) 5 mg PO [id number]@1600 [facility] Stop: 05/06/25 15:59 Last Admin: 04/07/25 17:53 Dose: 5 mg Warfarin Sodium (Warfarin Sod 2.5 Mg Tab) 2.5 mg PO Th@1600 [facility] Stop: 05/05/25 18:59 Last Admin: 04/05/25 19:45 Dose: 2.5 mg (1) AMS (altered mental status) Altered mental status type: unspecified Qualified Code(s): R41.82 - Altered mental status, unspecified (3) Catheter-associated urinary tract infection Encounter type: initial encounter Indwelling urinary catheter type: unspecified Qualified Code(s): T83.511A - Infection and inflammatory reaction due to indwelling urethral catheter, initial encounter; N39.0 - Urinary tract infection, site not specified
[2025-04-08] MEDS: GABAPENTIN 300 MG CAP PO SCH (16:57)
[2025-04-08] MEDS: LANTUS PER UNIT CHARGE SQ SCH (21:43)
--- NOTE | 2025-04-09 11:00 | Pharmacy Report ---
Pharmacy Glycemic Short Note 2 - Date of Service April 09, 2025 - Glycemic Short BSG Results (Last 24 hours): 04/08/25 04/08/25 04/08/25 12:09 16:54 20:09 POC Glucose 202 H 120 H 145 H 04/09/25 07:57 POC Glucose 191 H OUTPATIENT ANTIDIABETIC REGIMEN: * Toujeo (U-300) 60 units SC qHS * Glipizide 10 mg PO BID Alc = 10.1% (03/14/25) ASSESSMENT: 04/09 * Bill received 105 units of insulin yesterday (65 were basal) * Fasting BSG this AM elevated, Lantus increased yesterday, will continue to trend and adjust tomorrow if fasting still trending high. * No changes to NovoLog at this time. He is on oral linezolid at this time. 04/06: * Bill is a 54 yo T2DM with a complex PMH admitted last evening due to worsening confusion/AMS, concern for UTI in the setting of chronic fontaine. * He is well known to the Pharmacy glycemic consult service from past admissions. Typically requires ~80-100 units of SC insulin per day while admitted. Will continue current insulin orders as similar doses were well tolerated during February 2025 admission. PLAN FOR INPATIENT GLYCEMIC CONTROL: * Hold outpatient oral diabetes medications * Basal insulin * Lantus 65 units SQ HS * Bolus insulin * NovoLog per scale ACHS or Q6hrs while NPO * Goal Range: Low 110 mg/dL - High 140 mg/dL * Correction Factor: 20 mg/dL/unit * Nutritional / Prandial insulin per carb ratio of 1 unit per 4 grams CHO consumed
[2025-04-09] MEDS: POLYETHYLENE (MIRALAX) 17 GM PACK PO PRN (15:40)
--- NOTE | 2025-04-09 18:08 | Hospitalist Progress Note ---
Date of Service April 09, 2025 Assessment & Plan (1) AMS (altered mental status): (2) Metabolic encephalopathy: (3) Catheter-associated urinary tract infection: (4) Hypomagnesemia: Plan Patient is a medically complex 54-year-old male with past medical history significant for chronic diastolic heart failure [EF = 55-59%; TTE 03/2024], chronic venous insufficiency, history of SVT, CAD, history of STEMI, history of subdural hematoma/subarachnoid hemorrhage with no operative intervention, HTN, HLD, COPD, DARIA intolerant to CPAP, history of PE on Coumadin, insulin-requiring DMII with diabetic peripheral neuropathy, GERD, ARNOLD, BPH/chronic urinary retention with chronic indwelling Lloyd catheter placement c/b recurrent UTIs, mood disorder, chronic pain syndrome, opioid dependence with history of drug overdose on buprenorphine, low testosterone, tobacco use disorder and other problems listed below who presented to the ED via EMS due to worsening confusion/AMS. Poor historian. Patient is very drowsy and lethargic in the ED - difficult to obtain much history because of this. However, patient able to communicate that he has "not been feeling well" over the past several days. #AMS - resolved #Metabolic encephalopathy - resolved Likely 2/[address]: no hemorrhage, mass effect or evidence of acute territorial ischemia VBG c/w chronic hypercapnia --> likely related to obesity hypoventilation syndrome given body habitus Urine tox negative EtOH level undetectable Blood cultx pending Urine cultx positive for Enterococcus faecium VRE -> abx was changed to linezolid Hold gabapentin for now TSH wnl /vit B12 level Avoid sedating agents as able Neurochecks Q4H for now 04/07 Pt is sitting up, awake, eating by himself. Sometimes answers questions , sometimes does not. Sometime makes eye contact and sometimes does not. Answers appropriately. Appears depressed, asked about psychiatry consult and pt shakes his head no - as not interested. Will cont. to monitor and re-evaluate. 04/08 Pt is sitting up in chair in NAD, awake, alert, answering appropriately. He is reading medical notes on his phone and questions information in them. Reports feeling much improved but not yet to his baseline. 04/09 Pt feeling well. Mental status back to baseline. Wants to see elementary educator. #CAUTI #H/o recurrent UTIs #Chronic indwelling Lloyd catheter 2/2 chronic urinary retention WBC 13-14k -> down to 11K Urine cx - posit. for Enterococcus faecium - discussed w/ pharm. and started on linezolid Lactate negative Procal negative S/p dose of IV cefepime in ED -Pt noted to have allergy to cefepime --> could not confirm w/ pt - per admitting provider -D/w ED pharmacist, December --> based on prior urine cx/ABX allergies, was started on IV Zosyn on admission -> changed to linezolid as above, given cultx Lloyd cath exchanged on admission #Hypomagnesemia Mag 1.5 replete and monitor #HLD #CAD, h/o STEMI Continue statin, ASA Continue Imdur #Neuropathy Continue Cymbalta Hold gabapentin for now, as per above, given AMS Pt's mental status back to baseline and he wishes his gabapentin to be resumed - agreed to resume at lower dose 300 tid #GERD Continue PPI, Pepcid #H/o PE INR therapeutic Continue Coumadin w/ daily INR monitoring --> adjust dose PRN #DMII, uncontrolled Hgb A1c 10.1 as of 03/14/25 Hold home reg Basal/bolus reg while inpt Appreciate glycemic pharm assistance Follow BSG checks ACHS #ARNOLD Hgb stable Continue iron supplementation #BPH Continue Proscar, Flomax #COPD No s/sx of acute exacerbation CXR: stable exam, no acute findings Continue home inhalers/nebs #HTN Continue BB w/ hold parameters #Chronic diastolic HF Appears euvolemic on exam Continue home diuretic regimen/K+ supplementation #Chronic pain syndrome Pt previously on oxy -Pt stated on admission that he stopped taking this --> oxy was removed from med list on admission -> now he says he takes 10 mg bid Continue buprenorphine #Tobacco use disorder Nicotine patch ordered #Chronically elevated of alk phos --> appears around baseline, continue to monitor LFTs #DARIA Prev intolerant to CPAP Will trial CPAP again while inpt - pt declined DVT Prophylaxis: Coumadin Code Status: FULL CODE Disposition: med/tele Admission and Anticipated Discharge Date Admission Date: April 05, 2025 Subjective Pt seen in follow up of AMS, likely secondary to UTI, chronic Lloyd Currently sitting up in chair in NAD, feeling well, awake,alert oriented, conversing easily. He would like to see elementary educator. Review of Systems Review of Systems: All systems reviewed & are unremarkable except as noted in Subjective Physical Exam Physical Exam: General Appearance: Morbidly Obese M in NAD Head: normocephalic, Atraumatic Eyes: normal inspection, EOMI Neck: supple Respiratory/Chest: Decreased breath sounds, clear to auscultation, No accessory muscle use Cardiovascular: S1, S2, No murmur Abdomen/GI: Soft, Non tender, Bowel sounds present, + obese abdomen Extremities/Musculoskeletal: normal inspection, LE edema, + chronic venous stasis changes Neurologic/Psych:AAOX3, awake, alert, oriented, answers appropriately, EOMI, no facial asymmetry, speech fluent, moves extremities Skin: normal color, warm Results & Data Results & Data Vital Signs (Past 12 Hours) Vital Signs Temp Pulse Pulse Resp BP Pulse Ox O2 Del Method 04/09/25 16:15 36.7 C 83 20 113/71 91 Room Air 04/09/25 14:28 Room Air 04/09/25 13:09 91 H 04/09/25 11:27 36.7 C 87 18 123/69 95 Room Air 04/09/25 08:35 36.5 C 72 20 103/71 93 Room Air Laboratory Results 04/09/25 04/09/25 04/09/25 Range/Units 16:50 11:46 07:57 POC Glucose 148 H 154 H 191 H (70-99) mg/dl 04/08/25 Range/Units 20:09 POC Glucose 145 H (70-99) mg/dl Medications Administered Current Inpatient Medications Acetaminophen (Acetaminophen 325 Mg Tab) 650 mg PO Q4H PRN PRN Reason: Pain or Fever Stop: 05/05/25 16:55 Albuterol (Albut/Ipratrop 3mg/0.5mg Neb 3 Ml Vial) 3 ml INH TIDR PRN; Protocol PRN Reason: Shortness Of Breath Or Wheezing Stop: 05/05/25 18:59 Aspirin (Aspirin 81 Mg Ectab) 81 mg PO QAM [facility] Stop: 05/06/25 08:59 Last Admin: 04/09/25 09:49 Dose: 81 mg Atorvastatin Calcium (Atorvastatin 40 Mg Tab) 80 mg PO PM [facility] Stop: 05/05/25 20:59 Last Admin: 04/08/25 21:42 Dose: 80 mg Budesonide (Budesonide 0.5 Mg/2 Ml Vial (Pulmicort)) 0.5 mg INH BIDR PRN PRN Reason: Shortness Of Breath Or Wheezing Stop: 05/05/25 18:59 Buprenorphine HCl (Buprenorphine Hcl 8 Mg Subl) 8 mg SL BID [facility] Stop: 05/08/25 20:59 Last Admin: 04/09/25 09:57 Dose: 8 mg Buprenorphine HCl (Buprenorphine Hcl 2 Mg Subl) 4 mg SL DAILY@1400 [facility] Stop: 05/08/25 15:29 Last Admin: 04/09/25 13:19 Dose: 4 mg Cyanocobalamin (Cyanocobalamin (B-12) 500 Mcg Tablet) 500 mcg PO QAM [facility] Stop: 05/06/25 14:14 Last Admin: 04/09/25 09:49 Dose: 500 mcg Dextrose (Dextrose 50% 50 Ml Syringe) 25 - 50 ml IV UD PRN; Protocol PRN Reason: Hypoglycemia Protocol Stop: 05/05/25 16:55 Duloxetine HCl (Duloxetine Hcl 60 Mg Cap) 60 mg PO QAM [facility] Stop: 05/06/25 08:59 Last Admin: 04/09/25 09:45 Dose: 60 mg Famotidine (Famotidine 20 Mg Tab) 20 mg PO HS [facility] Stop: 05/05/25 20:59 Last Admin: 04/08/25 21:42 Dose: 20 mg Ferrous Sulfate (Ferrous Sulfate 325 Mg Tab) 325 mg PO QAM [facility] Stop: 05/06/25 08:59 Last Admin: 04/09/25 09:49 Dose: 325 mg Finasteride (Finasteride 5 Mg Tab) 5 mg PO QAM [facility] Stop: 05/06/25 08:59 Last Admin: 04/09/25 09:57 Dose: 5 mg Fluticasone Propionate (Fluticasone Propionate Na Spr 16 Gm Btl) 2 sprays HANSA DAILY [facility] Stop: 05/06/25 08:59 Last Admin: 04/09/25 09:50 Dose: 2 sprays Fluticasone/Vilanterol (Fluticasone/Vilanterol 100/25mcg 14 Puffs/Inhaler) 1 puffs INH DAILY [facility] Stop: 05/06/25 08:59 Last Admin: 04/09/25 09:50 Dose: 1 puffs Folic Acid (Folic Acid 1 Mg Tab) 1 mg PO QAM [facility] Stop: 05/06/25 08:59 Last Admin: 04/09/25 09:49 Dose: 1 mg Furosemide (Furosemide 40 Mg Tab) 40 mg PO BID [facility] Stop: 05/05/25 20:59 Last Admin: 04/09/25 09:49 Dose: 40 mg Gabapentin (Gabapentin 300 Mg Cap) 300 mg PO TID [facility] Stop: 05/08/25 16:34 Last Admin: 04/09/25 13:19 Dose: 300 mg Glucagon (Glucagon For Inj 1 Mg Vial) 1 mg SQ UD PRN; Protocol PRN Reason: Hypoglycemia Protocol Stop: 05/05/25 16:55 Glucose (Glucose 40% Gel 15 Gm Tube) 15 - 30 gm PO UD PRN; Protocol PRN Reason: Hypoglycemia Protocol Stop: 05/05/25 16:55 Glucose (Glucose 10 Tab/Tube) 4 - 8 tab PO UD PRN; Protocol PRN Reason: Hypoglycemia Protocol Stop: 05/05/25 16:55 Insulin Aspart (Insulin Aspart Per Unit Charge) 0 units SC ACHS [facility] Stop: 05/05/25 16:55 Last Admin: 04/09/25 12:32 Dose: 15 units Insulin Glargine (Lantus Per Unit Charge) 65 units SQ HS [facility] Stop: 05/08/25 20:59 Last Admin: 04/08/25 21:43 Dose: 65 units Isosorbide Dinitrate (Isosorbide Dinitrate 20 Mg Tab) 30 mg PO QAM [facility] Stop: 05/06/25 08:59 Last Admin: 04/09/25 09:45 Dose: 30 mg Lactobacillus Acidophilus (Advanced Probiotic 625 Mg Capsule) 625 mg PO DAILY [facility] Stop: 05/06/25 08:59 Last Admin: 04/09/25 09:48 Dose: 625 mg Linezolid (Linezolid 600 Mg Tab) 600 mg PO BID [facility] Stop: 04/12/25 23:59 Last Admin: 04/09/25 09:57 Dose: 600 mg Magnesium Hydroxide (Magnesium Hydroxide Susp 30 Ml Udc) 30 ml PO Q12H PRN PRN Reason: Constipation Stop: 05/05/25 16:55 Magnesium Oxide (Magnesium Oxide 400 Mg Tab) 400 mg PO QAM [facility] Stop: 05/06/25 08:59 Last Admin: 04/09/25 09:45 Dose: 400 mg Metoprolol Succinate (Metoprolol Succ 25mg Ext Rel Tab) 75 mg PO BID [facility] Stop: 05/05/25 20:59 Last Admin: 04/09/25 09:44 Dose: 75 mg Miscellaneous (Remove Nicoderm Patch) 1 each N/A DAILY@0859 [facility] Stop: 05/06/25 08:58 Last Admin: 04/09/25 09:56 Dose: 1 each Miscellaneous (Carbohydrates For Hypoglycemia ) 15 - 30 gm PO UD PRN PRN Reason: Hypoglycemia Protocol Stop: 05/05/25 16:55 Miscellaneous Information (Pharmacy Glycemic Mgmt Consult) 1 each N/A UD PRN PRN Reason: Consult Stop: 05/05/25 16:55 Nicotine (Nicotine 21 Mg/24 Hr Tdsy) 1 patch TD QAM [facility] Stop: 05/05/25 15:59 Last Admin: 04/09/25 09:49 Dose: 1 patch Ondansetron HCl (Ondansetron Inj 2 Mg/Ml 2 Ml Vial) 4 mg IV Q6H PRN PRN Reason: Nausea Stop: 05/05/25 16:55 Oxycodone HCl (Oxycodone Hcl Ir 5 Mg Tab (Immediate Release)) 5 mg PO BID [facility] Stop: 04/22/25 20:59 Last Admin: 04/09/25 09:42 Dose: 5 mg Pantoprazole Sodium (Pantoprazole 40 Mg Tab) 40 mg PO BID [facility] Stop: 05/05/25 20:59 Last Admin: 04/09/25 09:45 Dose: 40 mg Polyethylene Glycol (Polyethylene (Miralax) 17 Gm Pack) 17 gm PO DAILY PRN PRN Reason: Constipation Stop: 05/05/25 16:55 Last Admin: 04/09/25 15:40 Dose: 17 gm Potassium Chloride (Potassium Chloride Crtab 20 Meq Tabcr) 20 meq PO BID [facility] Stop: 05/05/25 20:59 Last Admin: 04/09/25 10:04 Dose: 20 meq Sodium Chloride (Sodium Chloride 0.65% Na Soln 45 Ml (Toluca)) 1 sprays NA QID PRN PRN Reason: Nasal Congestion Stop: 05/07/25 10:28 Spironolactone (Spironolactone 25 Mg Tab) 25 mg PO QAM [facility] Stop: 05/06/25 08:59 Last Admin: 04/09/25 09:57 Dose: 25 mg Tamsulosin HCl (Tamsulosin Hcl 0.4 Mg Cap) 0.4 mg PO DAILY [facility] Stop: 05/06/25 08:59 Last Admin: 04/09/25 09:45 Dose: 0.4 mg Umeclidinium Elaine (Umeclidinium Elaine 62.5mcg/Blister 7 Puffs/Inhaler) 1 puffs INH DAILY [facility] Stop: 05/06/25 08:59 Last Admin: 04/09/25 09:50 Dose: 1 puffs Warfarin Sodium (Warfarin Sod 5 Mg Tab) 5 mg PO [id number]@1600 [facility] Stop: 05/06/25 15:59 Last Admin: 04/09/25 16:43 Dose: 5 mg Warfarin Sodium (Warfarin Sod 2.5 Mg Tab) 2.5 mg PO Th@1600 [facility] Stop: 05/05/25 18:59 Last Admin: 04/05/25 19:45 Dose: 2.5 mg (1) AMS (altered mental status) Altered mental status type: unspecified Qualified Code(s): R41.82 - Altered mental status, unspecified (3) Catheter-associated urinary tract infection Encounter type: initial encounter Indwelling urinary catheter type: unspecified Qualified Code(s): T83.511A - Infection and inflammatory reaction due to indwelling urethral catheter, initial encounter; N39.0 - Urinary tract infection, site not specified
[2025-04-09] MEDS: MAGNESIUM HYDROXIDE SUSP 30 ML UDC PO PRN (20:58)
[2025-04-10 08:05] VITALS: RESP 12
--- NOTE | 2025-04-10 11:53 | Discharge Summary ---
Date of Service April 10, 2025 Admission HPI Per Admitting Provider Patient is a medically complex 54-year-old male with past medical history significant for chronic diastolic heart failure [EF = 55-59%; TTE 03/2024], chronic venous insufficiency, history of SVT, CAD, history of STEMI, history of subdural hematoma/subarachnoid hemorrhage with no operative intervention, HTN, HLD, COPD, DARIA intolerant to CPAP, history of PE on Coumadin, insulin-requiring DMII with diabetic peripheral neuropathy, GERD, ARNOLD, BPH/chronic urinary retention with chronic indwelling Lloyd catheter placement c/b recurrent UTIs, mood disorder, chronic pain syndrome, opioid dependence with history of drug ov erdose on buprenorphine, low testosterone, tobacco use disorder and other problems listed below who presented to the ED via EMS due to worsening confusion/AMS. History obtained from the patient, discussion with ED provider and associated chart review. Patient seen in the ED with Dr. Wright. Poor historian. Patient is very drowsy and lethargic in the ED - difficult to obtain much history because of this. However, patient able to communicate that he has "not been feeling well" over the past several days. Denies any chest pain, cough, SOB, abdominal pain, dysuria, fever, chills, diarrhea or headaches. Notes compliance with his medications. Intolerant to CPAP for DARIA. No known trauma or injury. Unsure of when Lloyd catheter was most recently exchanged. Longtime cigarette smoker, typically smokes 1ppd. Denies any alcohol use. Prior chronic oxycodone use - patient reports he no longer takes this however. Remains on chronic buprenorphine therapy. History of recurrent UTIs in setting of chronic indwelling Lloyd catheter placement due to chronic urinary retention. Has previously grown Morganella morganii in November 2024, Providencia rettgeri in July 2024, Enterobacter cloacae in February 2024 and Citrobacter freundii in December 2023. Admission Exam Per Admitting Provider General Appearance:Morbidly Obese, no apparent distress Head: normocephalic, Atraumatic Eyes: normal inspection, EOMI Neck: supple, Trachea midline Respiratory/Chest: Decreased breath sounds, clear to auscultation, No accessory muscle use Cardiovascular: S1, S2, No murmur Abdomen/GI:Soft, Non tender, Bowel sounds present Extremities/Musculoskeletal:normal inspection, LE edema, + chronic venous stasis changes Neurologic/Psych:AAOX3, grossly no focal neurological deficits, lethargic Skin: normal color, warm Principal Diagnosis Altered mental status, encephalopathy Complicated UTI, hx of Lloyd catheter Discharge Exam General Appearance: Morbidly Obese M in NAD Head: normocephalic, Atraumatic Eyes: normal inspection, EOMI Neck: supple Respiratory/Chest: Decreased breath sounds, clear to auscultation, No accessory muscle use Cardiovascular: S1, S2, No murmur Abdomen/GI: Soft, Non tender, Bowel sounds present, + obese abdomen Extremities/Musculoskeletal: normal inspection, LE edema, + chronic venous stasis changes Neurologic/Psych:AAOX3, awake, alert, oriented, answers appropriately, EOMI, no facial asymmetry, speech fluent, moves extremities Skin: normal color, warm Discharge Data Allergies Allergy/AdvReac Type Severity Reaction Status Date / Time Iodinated Contrast Media Allergy Severe Itching, Verified 04/05/25 15:12 hypoxia, bronchospasm cefepime Allergy Intermediate Rash Verified 04/05/25 15:12 daptomycin Allergy Intermediate rash Verified 04/05/25 15:12 fentanyl Allergy Intermediate RASH/HIVES/SKIN Verified 04/05/25 15:12 REDNESS acetaminophen [From Tylenol] AdvReac Intermediate IRRITATES Verified 04/05/25 15:12 & UPSET STOMACH ibuprofen AdvReac Intermediate CAUSED Verified 04/05/25 15:12 ULCERS naloxone AdvReac Intermediate extremely Verified 04/05/25 15:12 sick valproic acid AdvReac Intermediate PANCREATITS Verified 04/05/25 15:12 STERIOD AdvReac Intermediate HALLUCINATIONS Uncoded 04/05/25 15:12 WITH STERIOD INJ IN BACK. Consultations 04/05/25 15:25 ED Decision to Admit Stat Ordered Studies 04/05/25 12:29 CT head/brain wo con Stat IMPRESSION: There is no hemorrhage, mass effect, or evidence of acute territorial ischemia by CT criteria noting a motion degraded examination. Hospital Course (1) AMS (altered mental status): (2) Metabolic encephalopathy: (3) Catheter-associated urinary tract infection: (4) Hypomagnesemia: Plan Patient is a medically complex 54-year-old male with past medical history significant for chronic diastolic heart failure [EF = 55-59%; TTE 03/2024], chronic venous insufficiency, history of SVT, CAD, history of STEMI, history of subdural hematoma/subarachnoid hemorrhage with no operative intervention, HTN, HLD, COPD, DARIA intolerant to CPAP, history of PE on Coumadin, insulin-requiring DMII with diabetic peripheral neuropathy, GERD, ARNOLD, BPH/chronic urinary retention with chronic indwelling Lloyd catheter placement c/b recurrent UTIs, mood disorder, chronic pain syndrome, opioid dependence with history of drug overdose on buprenorphine, low testosterone, tobacco use disorder and other problems listed below who presented to the ED via EMS due to worsening confusion/AMS. Poor historian. Patient is very drowsy and lethargic in the ED - difficult to obtain much history because of this. However, patient able to communicate that he has "not been feeling well" over the past several days. #AMS - resolved #Metabolic encephalopathy - resolved Likely 2/[address]: no hemorrhage, mass effect or evidence of acute territorial ischemia VBG c/w chronic hypercapnia --> likely related to obesity hypoventilation syndrome given body habitus Urine tox negative EtOH level undetectable Blood cultx pending Urine cultx positive for Enterococcus faecium VRE -> abx was changed to linezolid Hold gabapentin for now TSH wnl /vit B12 level Avoid sedating agents as able Neurochecks Q4H for now 04/07 Pt is sitting up, awake, eating by himself. Sometimes answers questions , sometimes does not. Sometime makes eye contact and sometimes does not. Answers appropriately. Appears depressed, asked about psychiatry consult and pt shakes his head no - as not interested. Will cont. to monitor and re-evaluate. 04/08 Pt is sitting up in chair in NAD, awake, alert, answering appropriately. He is reading medical notes on his phone and questions information in them. Reports feeling much improved but not yet to his baseline. 04/09 Pt feeling well. Mental status back to baseline. Wants to see parent educator. #CAUTI #H/o recurrent UTIs #Chronic indwelling Lloyd catheter 2/2 chronic urinary retention WBC 13-14k -> down to 11K Urine cx - posit. for Enterococcus faecium VRE - discussed w/ pharm. and started on linezolid Lactate negative Procal negative S/p dose of IV cefepime in ED -Pt noted to have allergy to cefepime --> could not confirm w/ pt - per admitting provider -D/w ED pharmacist, December --> based on prior urine cx/ABX allergies, was started on IV Zosyn on admission -> changed to linezolid as above, given cultx Lloyd cath exchanged on admission #Hypomagnesemia Mag 1.5 replete and monitor #HLD #CAD, h/o STEMI Continue statin, ASA Continue Imdur #Neuropathy Continue Cymbalta Hold gabapentin for now, as per above, given AMS Pt's mental status back to baseline and he wishes his gabapentin to be resumed - agreed to resume at lower dose 300 tid - pt is doing well on this dose #GERD Continue PPI, Pepcid #H/o PE INR therapeutic Continue Coumadin w/ daily INR monitoring --> adjust dose PRN Follow up w/ anticoag. clinic on DC #DMII, uncontrolled Hgb A1c 10.1 as of 03/14/25 Held home reg while inpt -> resume on DC Basal/bolus reg while inpt Appreciate glycemic pharm assistance, and parent educator (free glucometer provided) #ARNOLD Hgb stable Continue iron supplementation #BPH Continue Proscar, Flomax #COPD No s/sx of acute exacerbation CXR: stable exam, no acute findings Continue home inhalers/nebs #HTN Continue BB w/ hold parameters #Chronic diastolic HF Appears euvolemic on exam Continue home diuretic regimen/K+ supplementation #Chronic pain syndrome Pt previously on oxy -Pt stated on admission that he stopped taking this --> oxy was removed from med list on admission -> now he says he takes 10 mg bid Continue buprenorphine #Tobacco use disorder Nicotine patch ordered #Chronically elevated of alk phos --> appears around baseline, continue to monitor LFTs #DARIA Prev intolerant to CPAP Will trial CPAP again while inpt - pt declined Total Time Total Time Spent Total Time Spent (In Minutes): 40 Discharge Plan Discharge Items Patient Disposition: Home - Self-Care Reason For Visit: AMS, COMPLICATED UTI Discharge Diagnosis: Altered mental status, encephalopathy Complicated UTI, hx of Lloyd catheter Condition on Discharge: Fair Activity: Per Instructions section Non-emergency contact: Primary Care Provider Call non-emergency contact if: you have any medication questions and your symptoms worsen Follow-up/Referrals: Kehinde Mc MD [Primary Care Provider] - (Date & Time 04/13/2025 1:20 PM Provider: Kehinde Mc MD Family Practice, [facility] [place] Michele *Video Visit*) Diet: Carb Consistent or DM2 and Heart Healthy Addtl Attending Provider Instructions: Follow up with your primary care doctor within 1-2 weeks. The appointment was scheduled for you for 04/13/2025. Finish antibiotic treatment with linezolid, as prescribed. Your gabapentin dose was decreased to 300 mg three times a day. Discuss with your primary care doctor if this works for you better. Your oxycodone dose was decreased here to 5 mg twice a day. As discussed, you have 10 mg tablets at home, so could cut them in half. Discuss with your primary care doctor if this works for you better. Pending Studies at Discharge: Yes Studies:: sputum cultx Stand-Alone Forms: My [email or web address], Smoking Cessation Medications and DC Order Prescriptions: New gabapentin 300 mg Capsule 300 mg PO TID 10 Days Qty: 30 0RF linezolid 600 mg Tablet 600 mg PO BID 3 Days Qty: 6 0RF Continued furosemide 80 mg tablet 40 mg PO BID cyclobenzaprine 10 mg tablet 10 mg PO BID PRN (Reason: muscle spasms) fluticasone propion-salmeterol 250-50 mcg/dose blister with device 1 inh INHALATION BID atorvastatin 80 mg tablet 80 mg PO PM Rx Instructions: AFTERNOON metoprolol succinate 50 mg tablet extended release 24 hr 75 mg PO BID ondansetron HCl 4 mg tablet 4 mg PO TID PRN (Reason: Nausea And Vomiting) glipizide 10 mg tablet 10 mg PO BID Rx Instructions: one tab bid 30minutes before meals spironolactone 25 mg tablet 25 mg PO QAM isosorbide dinitrate 30 mg tablet 30 mg PO QAM famotidine 20 mg tablet 20 mg PO HS magnesium oxide 400 mg (241.3 mg magnesium) tablet 400 mg PO QAM ferrous sulfate 325 mg (65 mg iron) tablet 325 mg PO QAM folic acid 1 mg tablet 1 mg PO QAM albuterol sulfate 90 mcg/actuation HFA aerosol inhaler 2 inh INHALATION Q4H PRN (Reason: Shortness Of Breath Or Wheezing) finasteride 5 mg tablet 5 mg PO QAM buprenorphine HCl 8 mg tablet, sublingual 8 mg SUBLINGUAL TID Rx Instructions: (take 8mg in the morning,at 1400 take 4 mg then at night take 8mg) duloxetine 60 mg capsule,delayed release(DR/EC) 60 mg PO QAM tamsulosin 0.4 mg capsule 0.4 mg PO DAILY aspirin 81 mg Tablet,Delayed Release (Dr/Ec) 81 mg PO QAM pantoprazole 40 mg Tablet,Delayed Release (Dr/Ec) 40 mg PO BID Qty: 60 0RF sennosides [senna] 8.6 mg Tablet 8.6 mg PO DAILY PRN (Reason: Constipation) ipratropium-albuterol 0.5 mg-3 mg(2.5 mg base)/3 mL Solution For Nebulization 3 ml INHALATION TID Incruse Ellipta 62.5 mcg/actuation Blister With Device 1 inh INHALATION DAILY fluticasone propionate 93 mcg/actuation Aerosol Breath Activated 2 spray INTRANASAL DAILY Rx Instructions: into each nostril insulin glargine U-300 conc [Toujeo Max U-300 SoloStar] 300 unit/mL (3 mL) insulin pen 60 unit SUBCUT HS budesonide 0.5 mg/2 mL suspension for nebulization 0.5 mg inhalation BID Qty: 60 0RF Advanced Probiotic 625 mg (10 billion cell) Capsule 1 cap PO DAILY 30 Days Qty: 30 0RF warfarin 5 mg tablet 2.5 - 5 mg PO DAILY Rx Instructions: LAST REPORTED: 2.5 MG THURSDAYS, THEN 5 MG ALL OTHER DAYS. potassium chloride 20 mEq tablet,ER particles/crystals 20 meq PO BID Held gabapentin 800 mg tablet 800 mg PO TID Qty: 60 0RF Hold Instructions: Resume on 04/16/25. discuss w/ your primary care physician if/when to resume Discontinued fluconazole 200 mg tablet 200 mg PO QAM Rx Instructions: STARTED 03/29/25 FOR 14 DAYS sulfamethoxazole-trimethoprim 800-160 mg tablet 1 tab PO BID Rx Instructions: STARTED 03/29/25 FOR 10 DAYS. Discharge Orders: Discharge Order (Routine); Ordered 04/10/25 Ordered By: Derrell Whitley Admission Data Admit Date/Time: 04/05/25 15:31 Attending Provider: Derrell Whitley Admit Provider: Dipesh Wright Primary Care Provider: Kehinde Mc Other Providers: Dipesh Wright Other Interventions: Discharge Summary Assessment (RN) Last Done: 04/10/25 11:59
[2025-04-10 12:17] VITALS: BP 144/69; PULSE 68; TEMP 97.9; O2SAT 98
== END 2025-04-10 14:07 | disposition home or self-care (01) | DRG 947 ==
LOC: ED 12:17 → 2W 15:31 → SUATTDRO 15:31 → 2W 16:14

== ENCOUNTER 2025-05-04 15:58 | Inpatient (IN) ==
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
[2025-05-04 17:10] LABS: Hematocrit (blood only) 39.8 % (42.0-52.0); Hemoglobin 13.1 g/dl (14.0-18.0); Immature Granulocytes # (auto) 0.05 K/uL (0.01-0.20); Immature Granulocytes % (auto) 0.4 %; Mean Corpuscular Hemoglobin 27.2 pg (25.0-34.0); Mean Corpuscular Volume 82.6 fL (80.0-100.0); Platelet Count 332 K/uL (130-400); RDW Standard Deviation 54.4 fL (36.4-46.3); Red Blood Count 4.82 M/uL (4.70-6.10); White Blood Count 13.64 K/ul (4.8-10.8)
--- NOTE | 2025-05-04 17:12 | XRay Report ---
Clinical History: Dyspnea Technique: 2 frontal views of the chest were obtained Comparison is made to the prior examination dated 12/04/2024 Findings: There are no definite pulmonary infiltrates. The heart size is at the upper limit of normal. No pleural effusion or pneumothorax is seen. There is suspected mild pulmonary vascular congestion No fracture is noted. A device is again seen projecting over the left heart Impression: Suspected mild pulmonary vascular congestion Electronically signed by Leodan Cristobal 05-04-2025 5:12 PM
[2025-05-04 17:26] LABS: Alanine Aminotransferase 16.0 U/L (7-52); Albumin Globulin Ratio 1.0 (0.9-2); Alkaline Phosphatase 121.0 U/L (34-104); Anion Gap 9.0 (3-11); Bilirubin,Total 1.2 mg/dl (0.2-1.0); Blood Urea Nitrogen 8.0 mg/dl (6-23); Calcium 9.3 mg/dl (8.6-10.3); Carbon Dioxide 30.0 mmol/L (21-32); Chloride 95.0 mmol/L (98-107); Creatinine Clr Calc Pharmacy 134.3 ml/min; Globulin 3.5 gm/dl (2.5-4.0); Glucose 187.0 mg/dl (70-99(Fasting)); Potassium 2.8 mmol/L (3.5-5.1); Sodium 134.0 mmol/L (136-145); Total Protein 7.0 gm/dl (6.0-8.3)
[2025-05-04 17:36] LABS: INR 3.5 (0.9-1.1); Prothrombin Time 34.0 Seconds (9.0-12.0)
[2025-05-04] MEDS: POTASSIUM CHLORIDE CRTAB 20 MEQ TABCR PO STA ×2 (17:40→19:09)
[2025-05-04 17:53] LABS: Chlamydia pneumoniae PCR Not Detected (NotDetected); Coronavirus 229E PCR Not Detected (NotDetected); Coronavirus CoV-2 (COVID19)PCR Not Detected (NotDetected); Coronavirus HKU1 PCR Not Detected (NotDetected); Coronavirus NL63 PCR Not Detected (NotDetected); Coronavirus OC43PCR Not Detected (NotDetected); Human Metapneumovirus PCR Not Detected (NotDetected); Parainfluenza Virus 1 PCR Not Detected (NotDetected); Parainfluenza Virus 2 PCR Not Detected (NotDetected); Parainfluenza Virus 3 PCR Not Detected (NotDetected); Parainfluenza Virus 4 PCR Not Detected (NotDetected); Respiratory Syncytial VirusPCR Not Detected (NotDetected); Rhinovirus/Enterovirus PCR Not Detected (NotDetected)
[2025-05-04] MEDS: FUROSEMIDE 40 MG/4 ML VIAL IV ONE (19:08)
[2025-05-04 19:09] LABS: Base Excess VBG 10.0 mEq/L; HCO3 VBG 37 mmol/L; Oxygen Saturation VBG < 60.0 %; PCO2 VBG 60 mmHg (38-50); PO2 VBG < 20 mmHg; pH VBG 7.40 (7.36-7.41)
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
[2025-05-04 20:22] LABS: Magnesium 1.5 mg/dl (1.7-2.4)
[2025-05-04] MEDS ORDERED: MAGNESIUM HYDROXIDE SUSP 30 ML UDC PO PRN (20:47)
[2025-05-04] MEDS ORDERED: ACETAMINOPHEN 325 MG TAB PO PRN (20:47)
[2025-05-04] MEDS ORDERED: DEXTROSE 50% 50 ML SYRINGE IV PRN (21:10)
[2025-05-04] MEDS ORDERED: GLUCOSE 10 TAB/TUBE PO PRN (21:10)
[2025-05-04] MEDS ORDERED: CARBOHYDRATES FOR HYPOGLYCEMIA PO PRN (21:10)
[2025-05-04] MEDS ORDERED: GLUCAGON FOR INJ 1 MG VIAL SQ PRN (21:10)
[2025-05-04] MEDS ORDERED: GLUCOSE 40% GEL 15 GM TUBE PO PRN (21:10)
[2025-05-04] MEDS: POTASSIUM CHLORIDE / WTR 10 MEQ/100 ML PLCT IV ONE (21:46)
[2025-05-04] MEDS: FAMOTIDINE 20 MG TAB PO SCH (21:47)
[2025-05-04 22:07] LABS: Appearance Urine Clear (Clear); Bacteria Urine Automated 1+ (None Seen); Cast Urine Automated 0-2 /lpf (0-2); Epithelial Cell Urine Auto 0-2 /hpf (0-2); Glucose Urine UA Negative (Negative); WBC Urine Automated 0-5 /hpf (0-5)
[2025-05-04] MEDS: BUDESONIDE 0.5 MG/2 ML VIAL (PULMICORT) NEB SCH (22:12)
[2025-05-04] MEDS: MAGNESIUM SULFATE / D5W 1 GM/100 ML BAG IV ONE (23:00)
[2025-05-05] MEDS: ALBUT/IPRATROP 3MG/0.5MG NEB 3 ML VIAL NEB SCH (07:20)
[2025-05-05 08:16] LABS: Hematocrit (blood only) 38.5 % (42.0-52.0); Hemoglobin 12.8 g/dl (14.0-18.0); Immature Granulocytes # (auto) 0.04 K/uL (0.01-0.20); Immature Granulocytes % (auto) 0.4 %; Mean Corpuscular Hemoglobin 27.6 pg (25.0-34.0); Mean Corpuscular Volume 83.0 fL (80.0-100.0); Platelet Count 283 K/uL (130-400); RDW Standard Deviation 54.9 fL (36.4-46.3); Red Blood Count 4.64 M/uL (4.70-6.10); White Blood Count 9.42 K/ul (4.8-10.8)
[2025-05-05 08:49] LABS: INR 3.1 (0.9-1.1); Prothrombin Time 30.0 Seconds (9.0-12.0)
[2025-05-05 08:56] LABS: Alanine Aminotransferase 13.0 U/L (7-52); Albumin Globulin Ratio 1.0 (0.9-2); Alkaline Phosphatase 104.0 U/L (34-104); Anion Gap 6.0 (3-11); Bilirubin,Total 1.2 mg/dl (0.2-1.0); Blood Urea Nitrogen 6.0 mg/dl (6-23); Calcium 8.9 mg/dl (8.6-10.3); Carbon Dioxide 36.0 mmol/L (21-32); Chloride 96.0 mmol/L (98-107); Creatinine Clr Calc Pharmacy 144.9 ml/min; Globulin 3.1 gm/dl (2.5-4.0); Glucose 182.0 mg/dl (70-99(Fasting)); Magnesium 1.7 mg/dl (1.7-2.4); Potassium 2.9 mmol/L (3.5-5.1); Sodium 138.0 mmol/L (136-145); Total Protein 6.3 gm/dl (6.0-8.3)
[2025-05-05] MEDS ORDERED: FERROUS SULFATE 325 MG TAB PO SCH (09:00)
[2025-05-05] MEDS: NICOTINE 21 MG/24 HR TDSY TD SCH (09:25)
[2025-05-05] MEDS: FLUTICASONE/VILANTEROL 200/25MCG 14 PUFFS/INHALER INH SCH (09:26)
[2025-05-05] MEDS: UMECLIDINIUM BROMIDE 62.5MCG/BLISTER 7 PUFFS/INHALER INH SCH (09:27)
[2025-05-05] MEDS: FINASTERIDE 5 MG TAB PO SCH (09:27)
[2025-05-05] MEDS: SPIRONOLACTONE 25 MG TAB PO SCH (09:28)
[2025-05-05] MEDS: METOPROLOL SUCC 25MG EXT REL TAB PO SCH (09:28)
[2025-05-05] MEDS: GABAPENTIN 300 MG CAP PO SCH (09:28)
[2025-05-05] MEDS: ASPIRIN 81 MG ECTAB PO SCH (09:29)
[2025-05-05] MEDS: FOLIC ACID 1 MG TAB PO SCH (09:29)
[2025-05-05] MEDS: REMOVE NICODERM PATCH SCH (09:29)
[2025-05-05] MEDS: FUROSEMIDE 40 MG/4 ML VIAL IV SCH (09:30)
[2025-05-05] MEDS: INSULIN ASPART PER UNIT CHARGE SC SCH (09:38)
[2025-05-05] MEDS: POTASSIUM CHLORIDE 10 MEQ TABCR PO SCH (09:38)
[2025-05-05] MEDS: LANTUS PER UNIT CHARGE SQ SCH (09:38)
[2025-05-05] MEDS: POTASSIUM CHLORIDE CRTAB 20 MEQ TABCR PO SCH (10:02)
[2025-05-05] MEDS ORDERED: ALBUT/IPRATROP 3MG/0.5MG NEB 3 ML VIAL NEB PRN (11:39)
[2025-05-05] MEDS: PROMETHAZINE 12.5 MG/50.5 ML BAG IV PRN (12:07)
[2025-05-05] MEDS: ATORVASTATIN 40 MG TAB PO SCH (12:08)
--- NOTE | 2025-05-05 13:21 | Electrocardiogram Report ---
Test Reason : Blood Pressure : */* mmHG Vent. Rate : 84 BPM Atrial Rate : 84 BPM P-R Int : 170 ms QRS Dur : 124 ms QT Int : 394 ms P-R-T Axes : 102 42 92 degrees QTcB Int : 465 ms Poor data quality, interpretation may be adversely affected Normal sinus rhythm Right bundle branch block Abnormal ECG When compared with ECG of 05-Apr-2025 12:25, No significant change was found Confirmed by Christian Cunningham ([id number]) on 05/05/2025 1:21:02 PM Referred By: REFERRED SELF Confirmed By: Christian Cunningham
--- NOTE | 2025-05-05 13:52 | Electrocardiogram Report ---
Test Reason : Blood Pressure : */* mmHG Vent. Rate : 66 BPM Atrial Rate : 66 BPM P-R Int : 160 ms QRS Dur : 124 ms QT Int : 460 ms P-R-T Axes : * 27 84 degrees QTcB Int : 482 ms Normal sinus rhythm Right bundle branch block Abnormal ECG When compared with ECG of 04-May-2025 16:48, (unconfirmed) T wave inversion more evident in Lateral leads Confirmed by Christian Cunningham ([id number] on 05/05/2025 1:51:39 PM Referred By: REFERRED SELF Confirmed By: Christian Cunningham
[2025-05-05] MEDS: ACETAMINOPHEN 1,000 MG/100 ML VIAL IV PRN (14:46)
--- NOTE | 2025-05-05 15:26 | Hospitalist Progress Note ---
Date of Service May 05, 2025 delayed entry date of service noted above Assessment & Plan (1) Shortness of breath: Plan: Patient is 54 year old male with PMH chronic diastolic heart failure [EF = 55- 59%; TTE 03/2024], chronic venous insufficiency, history of SVT, CAD, history of STEMI, history of subdural hematoma/subarachnoid hemorrhage with no operative intervention, HTN, HLD, COPD, DARIA intolerant to CPAP, history of PE on Coumadin, insulin-requiring DM II with diabetic peripheral neuropathy, GERD, ARNOLD, BPH/chronic urinary retention with chronic indwelling Lloyd catheter placement c/b recurrent UTIs, mood disorder, chronic pain syndrome, opioid dependence with history of drug overdose on buprenorphine, low testosterone, tobacco use disorder and other problems listed below presented to ER with c/o SOB today and nonproductive cough Acute on chronic HFpEF CXR: suspected mild pulmonary congestion In ER given 80 mg Lasix IV Monitor I&O's, daily weight, low sodium diet Will plan for lasix 40mg IV daily and monitor response Continue spironolactone CBC, BMP in am DDx: COPD exacerbation Negative respiratory biofire panel Currently not hypoxic on RA Will diurese and trial of nebulizers and reassess SOB and wheezing. Hold on antibiotics currently. Continue home inhalers 05/05 (+) volume overload Lasix 40mg IV daily replete potassium monitor I&O #Hypokalemia K: 2.8 In ER given Total 60meq potassium chloride p.o. Replace and monitor Pt taking KCl once daily at home and in past been on BID. Will need to monitor and possibly further adjust --K 40meq BID for now #Hypomagnesemia Magnesium: 1.5 Replace and Monitor #H/O Lloyd catheter #H/O recurrent UTI Pt concern may have another UTI reports fever/chills at home -- Urine Cx: (+) Klebsiella ff up sensitivities Lloyd Cath exchange ordered #HTN #HLD #CAD, h/o STEMI Continue statin, aspirin, metoprolol Previously on isosorbide. Pt unsure if taking. last filled 09/2024. #Neuropathy #Chronic pain Continue Cymbalta, gabapentin, buprenorphine #H/o PE Anticoagulated on Coumadin INR: 3.1 Continue Coumadin w/ daily INR monitoring #Insulin DM II, uncontrolled Hgb A1c 10.1 as of 03/14/25 Basal/bolus insulin Hold home Stephanie #Iron deficiency anemia Hgb stable Continue iron supplementation #BPH Continue finasteride #GERD Continue PPI, Pepcid #Tobacco use disorder Nicotine patch ordered #DARIA Intolerant to CPAP DVT Prophylaxis On Coumadin, INR therapeutic Admit telemetry Full Code as per discussion with pt Follows with Dr Mc for routine care Admission and Anticipated Discharge Date Admission Date: May 04, 2025 Subjective ff up for volume overload, etc seen resting in bed, sleeping in bed but easily awakened oriented x 3 states he feels tired, weak breathing is somewhat improving, no cough no chest pain, palpitations, dizziness, fever/chills no other symptoms Review of Systems Review of Systems: all noted and negative except for above Physical Exam Physical Exam: General- oriented x 3, not in distress, speaks in sentences with no effort or accessory muscle use Eyes- anicteric Neck- no JVD Lungs- mild rhonchi BL, no wheezing Heart- normal rate, regular rhythm; no murmurs Abdomen- normal bowel sounds, nondistended, soft, nontender Extremities- mild pretibial edema, no calf tenderness no erythema/warmth Neuro- alert, oriented x 3; no gross focal neurologic deficits Skin- warm & dry Results & Data Results & Data Vital Signs (Past 12 Hours) Vital Signs Temp Pulse Pulse Resp BP Pulse Ox O2 Del Method 05/05/25 14:57 68 05/05/25 11:28 36.3 C L 67 18 146/73 H 91 Room Air 05/05/25 08:00 69 05/05/25 08:00 Room Air 05/05/25 07:43 36.4 C L 67 18 122/71 93 Room Air all noted and reviewed including below
[2025-05-05] MEDS: cefTRIAXone SODIUM 2,000 MG/50 ML BAG IV SCH (16:15)
[2025-05-05] MEDS: ADVANCED PROBIOTIC 625 MG CAPSULE PO SCH ×2 (16:18→16:38)
[2025-05-05] MEDS: WARFARIN SOD 5 MG TAB PO SCH (16:22)
[2025-05-05] MEDS: CYCLOBENZAPRINE HCL 10 MG TAB PO PRN (23:14)
[2025-05-06] MEDS ORDERED: PHARMACY GLYCEMIC MGMT CONSULT PRN (08:17)
[2025-05-06 09:14] LABS: Hematocrit (blood only) 39.0 % (42.0-52.0); Hemoglobin 13.2 g/dl (14.0-18.0); Immature Granulocytes # (auto) 0.03 K/uL (0.01-0.20); Immature Granulocytes % (auto) 0.4 %; Mean Corpuscular Hemoglobin 28.4 pg (25.0-34.0); Mean Corpuscular Volume 83.9 fL (80.0-100.0); Platelet Count 268 K/uL (130-400); RDW Standard Deviation 55.1 fL (36.4-46.3); Red Blood Count 4.65 M/uL (4.70-6.10); White Blood Count 7.30 K/ul (4.8-10.8)
[2025-05-06 09:54] LABS: INR 2.4 (0.9-1.1); Prothrombin Time 24.1 Seconds (9.0-12.0)
[2025-05-06 10:05] LABS: Bilirubin,Total 0.6 mg/dl (0.2-1.0)
[2025-05-06 10:06] LABS: Alanine Aminotransferase 15.0 U/L (7-52); Albumin Globulin Ratio 1.1 (0.9-2); Alkaline Phosphatase 104.0 U/L (34-104); Anion Gap 5.0 (3-11); Blood Urea Nitrogen 6.0 mg/dl (6-23); Calcium 9.2 mg/dl (8.6-10.3); Carbon Dioxide 36.0 mmol/L (21-32); Chloride 95.0 mmol/L (98-107); Creatinine Clr Calc Pharmacy 151.3 ml/min; Globulin 3.0 gm/dl (2.5-4.0); Glucose 358.0 mg/dl (70-99(Fasting)); Potassium 3.5 mmol/L (3.5-5.1); Sodium 136.0 mmol/L (136-145); Total Protein 6.2 gm/dl (6.0-8.3)
[2025-05-06] MEDS ORDERED: LANTUS PER UNIT CHARGE SQ STA (11:14)
[2025-05-06 12:12] LABS: Hemoglobin A1C 8.8 % (4.5-5.6)
--- NOTE | 2025-05-06 13:49 | Pharmacy Report ---
Pharmacy Glycemic Short Note 2 - Date of Service May 06, 2025 - Glycemic Short BSG Results (Last 24 hours): 05/05/25 05/05/25 05/06/25 16:59 20:01 08:09 Glucose POC Glucose 251 H 200 H 395 H* 05/06/25 05/06/25 05/06/25 08:09 08:29 12:04 Glucose 358 H* POC Glucose 412 H* 298 H OUTPATIENT ANTIDIABETIC REGIMEN: * Toujeo 60 units SC HS * Mounjaro 2.5 mg SC weekly HbA1c: 8.8% (05/06/25) ASSESSMENT: * AISLINN is a 54 year old male known to pharmacy glycemic service due to prior admissions/consultations * Consulted on 05/06/25 due to hyperglycemia this AM * Patient presented with shortness of breath w/ acute on chronic HFpEF * Will utilize past inpatient glycemic data to guide initial insulin dosing PLAN FOR INPATIENT GLYCEMIC CONTROL: * Basal insulin * Lantus 30 units SQ BID * Bolus insulin * NovoLog per scale ACHS or Q6hrs while NPO * Goal Range: Low 110 mg/dL - High 140 mg/dL * Correction Factor: 20 mg/dL/unit * Nutritional / Prandial insulin per carb ratio of 1 unit per 4 grams CHO consumed
--- NOTE | 2025-05-06 15:38 | Hospitalist Progress Note ---
Date of Service May 06, 2025 Assessment & Plan (1) Shortness of breath: Plan: Mr Milner is a 54 year old male with PMH chronic diastolic heart failure [EF = 55-59%; TTE 03/2024], chronic venous insufficiency, history of SVT, CAD, history of STEMI, history of subdural hematoma/subarachnoid hemorrhage with no operative intervention, HTN, HLD, COPD, DARIA intolerant to CPAP, history of PE on Coumadin, insulin-requiring DM II with diabetic peripheral neuropathy, GERD, ARNOLD, BPH/chronic urinary retention with chronic indwelling Lloyd catheter placement c/b recurrent UTIs, mood disorder, chronic pain syndrome, prior opioid on buprenorphine, low testosterone, tobacco use disorder admitted for management of acute on chronic HFpEF exacerbation #Acute on chronic HFpEF CXR: suspected mild pulmonary congestion In ER given 80 mg Lasix IV Monitor I&O's, daily weight, low sodium diet Continue spironolactone CBC, BMP in am DDx: COPD exacerbation Negative respiratory biofire panel Currently not hypoxic on RA Increased lasix to 40mg bid IV will likely transition to PO in 1-2 days #COPD Continue home inhalers Pulmicort and budesonide bid mucinex scheduled #Hypokalemia K: 2.8 In ER given Total 60meq potassium chloride p.o. Replace and monitor Pt taking KCl once daily at home and in past been on BID. Will need to monitor and possibly further adjust continue K 40meq BID for now #Hypomagnesemia Magnesium: 1.5 Replace and Monitor #Abnormal UA, acute complicated cystitis/CAUTI POA #H/O Lloyd catheter #H/O recurrent UTI Pt concern may have another UTI reports fever/chills at home -- Urine Cx: (+) Klebsiella Lloyd Cath exchange ordered continue CTX #HTN #HLD #CAD, h/o STEMI Continue statin, aspirin, metoprolol #Neuropathy #Chronic pain Continue Cymbalta, gabapentin, buprenorphine #Prior PE Anticoagulated on Coumadin INR: 3.1 Continue Coumadin w/ daily INR monitoring #Insulin DM II, uncontrolled Hgb A1c 10.1 as of 03/14/25 Improved to 8.8% Basal/bolus insulin Hold home [place] #Iron deficiency anemia Hgb stable Continue iron supplementation #BPH Continue finasteride #GERD Continue PPI, Pepcid #Tobacco use disorder Nicotine patch ordered #DARIA Intolerant to CPAP DVT Prophylaxis On Coumadin, INR therapeutic Admit telemetry Full Code as per discussion with pt Follows with Dr Mc for routine care Admission and Anticipated Discharge Date Admission Date: May 04, 2025 Subjective NAEO reports slow improvement today no acute concerns Physical Exam Constitutional: WD/WN, vitals as above Respiratory: expiratory wheezing scattered bilaterally Cardiovascular: RRR, no murmur, no edema Skin: scatter excoriations on BLE forearms, few on left thigh, no signs of superimposed infection Results & Data Results & Data Vital Signs (Past 12 Hours) Vital Signs Temp Pulse Resp BP Pulse Ox O2 Del Method O2 Flow Rate 05/06/25 11:42 36.5 C 61 18 134/71 96 Nasal Cannula 2 05/06/25 08:00 Room Air, Nasal Cannula 4 05/06/25 07:34 36.5 C 68 18 108/51 L 97 Nasal Cannula 2 Laboratory Results Short CBC 05/06/25 Range/Units 08:29 WBC 7.30 (4.8-10.8) K/ul Hgb 13.2 L (14.0-18.0) g/dl Hct 39.0 L (42.0-52.0) % Plt Count 268 (130-400) K/uL BMP 05/06/25 08:29 Sodium 136 Potassium 3.5 D Chloride 95 L Carbon Dioxide 36 H BUN 6 Creatinine 0.95 Glucose 358 H* Calcium 9.2 Liver Function 05/06/25 Range/Units 08:29 Total Bilirubin 0.6 D (0.2-1.0) mg/dl AST 22 (13-39) U/L ALT 15 (7-52) U/L Alkaline Phosphatase 104 (34-104) U/L Albumin 3.2 L (3.4-5.0) gm/dl Medications Administered Home Medications Medication Instructions Recorded Confirmed Last Taken albuterol sulfate 90 mcg/actuation 2 inh inhalation Q4H PRN Shortness 08/29/24 05/04/25 Unknown aerosol inhaler Of Breath Or Wheezing aspirin 81 mg tablet,delayed 81 mg PO QAM 08/29/24 05/04/25 04/05/25 release atorvastatin 80 mg tablet 80 mg PO PM 08/29/24 05/04/25 04/04/25 buprenorphine HCl 8 mg sublingual 8 mg sublingual TID 08/29/24 05/04/2504/05/25 08:00 tablet cyclobenzaprine 10 mg tablet 10 mg PO BID PRN muscle spasms 08/29/24 05/04/25 Unknown duloxetine 60 mg capsule,delayed 60 mg PO QAM 08/29/24 05/04/25 04/05/25 release famotidine 20 mg tablet 20 mg PO HS 08/29/24 05/04/25 04/04/25 ferrous sulfate 325 mg (65 mg 325 mg PO QAM 08/29/24 05/04/25 04/05/25 iron) tablet finasteride 5 mg tablet 5 mg PO QAM 08/29/24 05/04/25 04/05/25 fluticasone 250 mcg-salmeterol 50 1 inh inhalation BID 08/29/24 05/04/25 04/05/25 08:00 mcg/dose blistr powdr for inhalation folic acid 1 mg tablet 1 mg PO QAM 08/29/24 05/04/25 04/05/25 isosorbide dinitrate 30 mg tablet 30 mg PO QAM 08/29/24 05/04/25 04/05/25 metoprolol succinate 50 mg 75 mg PO BID 08/29/24 05/04/25 04/05/25 08:00 tablet,extended release 24 hr ondansetron HCl 4 mg tablet 4 mg PO TID PRN Nausea And Vomiting 08/29/24 05/04/25 Unknown spironolactone 25 mg tablet 25 mg PO QAM 08/29/24 05/04/25 04/05/25 pantoprazole 40 mg tablet,delayed 40 mg PO BID #60 tabs 09/04/24 05/04/25 04/05/25 08:00 release insulin glargine U-300 conc 300 60 unit subcut HS 02/06/25 05/04/25 04/04/25 unit/mL (3 mL) subcutaneous pen (Toujeo Max U-300 SoloStar) ipratropium 0.5 mg-albuterol 3 mg 3 ml inhalation TID 02/06/25 05/04/25 04/05/25 08:00 (2.5 mg base)/3 mL nebulization soln sennosides 8.6 mg tablet (senna) 8.6 mg PO DAILY PRN Constipation 02/06/25 05/04/25 Unknown umeclidinium 62.5 mcg/actuation 1 inh inhalation DAILY 02/06/25 05/04/25 04/05/25 blister powder for inhalation (Incruse Ellipta) potassium chloride 20 mEq 20 meq PO DAILY 04/05/25 05/04/25 04/05/25 tablet,extended release(part/cryst) warfarin 5 mg tablet 2.5 - 5 mg PO DAILY 04/05/25 05/04/25 04/04/25 furosemide 40 mg tablet 40 mg PO BID 05/04/25 05/04/25 Unknown gabapentin 300 mg capsule 300 mg PO QID 05/04/25 05/04/25 Unknown tirzepatide 2.5 mg/0.5 mL 2.5 mg subcut WK 05/04/25 05/04/25 Unknown subcutaneous pen injector (Stephanie) Active Medications Generic Name Dose Route Start Last Admin Trade Name Freq PRN Reason Stop Dose Admin Aspirin 81 mg 05/05/25 09:00 05/06/25 09:08 Aspirin 81 Mg Ectab PO 06/04/25 08:59 81 mg QAM EMPERATIRZ Administration Atorvastatin Calcium 80 mg 05/05/25 12:00 05/06/25 13:10 Atorvastatin 40 Mg Tab PO 06/04/25 11:59 80 mg DAILY@1200 EMPERATRIZ Administration Budesonide 0.5 mg 05/04/25 21:00 05/06/25 07:11 Budesonide 0.5 Mg/2 Ml Vial (Pulmicort) NEB 06/03/25 20:59 Not Given BIDR EMPERATRIZ Buprenorphine HCl 8 mg 05/04/25 21:05 05/06/25 09:07 Buprenorphine Hcl 8 Mg Subl SL 06/03/25 21:04 8 mg BID EMPERATRIZ Administration Buprenorphine HCl 4 mg 05/05/25 14:00 05/06/25 13:15 Buprenorphine Hcl 8 Mg Subl SL 06/04/25 13:59 4 mg DAILY@1400 EMPERATRIZ Administration Cyclobenzaprine HCl 10 mg 05/04/25 21:05 05/05/25 23:14 Cyclobenzaprine Hcl 10 Mg Tab PO 06/03/25 21:04 10 mg BID PRN Administration muscle spasms Duloxetine HCl 60 mg 05/05/25 09:00 05/06/25 09:08 Duloxetine Hcl 60 Mg Cap PO 06/04/25 08:59 60 mg QAM EMPERATRIZ Administration Famotidine 20 mg 05/04/25 21:10 05/05/25 21:39 Famotidine 20 Mg Tab PO 06/03/25 21:09 20 mg HS EMPERATRIZ Administration Finasteride 5 mg 05/05/25 09:00 05/06/25 09:08 Finasteride 5 Mg Tab PO 06/04/25 08:59 5 mg QAM EMPERATRIZ Administration Fluticasone/Vilanterol 1 puffs 05/05/25 09:00 05/06/25 09:09 Fluticasone/Vilanterol 200/25mcg 14 Puffs/Inhaler INH 06/04/25 08:59 1 puffs DAILY EMPERATRIZ Administration Folic Acid 1 mg 05/05/25 09:00 05/06/25 09:08 Folic Acid 1 Mg Tab PO 06/04/25 08:59 1 mg QAM EMPERATRIZ Administration Gabapentin 300 mg 05/05/25 09:00 05/06/25 13:10 Gabapentin 300 Mg Cap PO 06/04/25 08:59 300 mg QID EMPERATRIZ Administration Promethazine HCl 12.5 mg in 50.5 mls @ 202 mls/hr 05/05/25 11:37 05/05/25 12:22 Phenergan IV 06/04/25 11:36 Infused Q6H PRN Infusion Nausea And Vomiting Acetaminophen 1,000 mg in 100 mls @ 400 mls/hr 05/05/25 14:05 05/06/25 10:06 Ofirmev IV 05/08/25 14:04 Infused Q12H PRN Infusion Pain Ceftriaxone Sodium 2,000 mg in 50 mls @ 100 mls/hr 05/05/25 16:00 05/05/25 16:45 Rocephin IV 05/15/25 15:59 Infused Q24H EMPERATRIZ Infusion Insulin Aspart 0 units 05/05/25 07:30 05/06/25 13:16 Insulin Aspart Per Unit Charge SC 06/04/25 07:29 26 units ACHS EMPERATRIZ Administration Lactobacillus Acidophilus 1,250 mg 05/05/25 16:15 05/06/25 09:08 Advanced Probiotic 625 Mg Capsule PO 06/04/25 16:14 1,250 mg DAILY EMPERATRIZ Administration Metoprolol Succinate 75 mg 05/05/25 09:00 05/06/25 09:08 Metoprolol Succ 25mg Ext Rel Tab PO 06/04/25 08:59 75 mg BID EMPERATRIZ Administration Miscellaneous 1 each 05/05/25 08:59 05/06/25 09:09 Remove Nicoderm Patch N/A 06/04/25 08:58 1 each DAILY@0859 EMPERATRIZ Administration Nicotine 1 patch 05/05/25 09:00 05/06/25 09:10 Nicotine 21 Mg/24 Hr Tdsy TD 06/04/25 08:59 1 patch QAM EMPERATRIZ Administration Pantoprazole Sodium 40 mg 05/05/25 09:00 05/06/25 09:08 Pantoprazole 40 Mg Tab PO 06/04/25 08:59 40 mg BID EMPERATRIZ Administration Potassium Chloride 40 meq 05/05/25 09:10 05/06/25 09:08 Potassium Chloride 10 Meq Tabcr PO 06/04/25 09:09 40 meq BID EMPERATRIZ Administration Spironolactone 25 mg 05/05/25 09:00 05/06/25 09:08 Spironolactone 25 Mg Tab PO 06/04/25 08:59 25 mg QAM EMPERATRIZ Administration Umeclidinium [place] 1 puffs 05/05/25 09:00 05/06/25 09:09 Umeclidinium [place] 62.5mcg/Blister 7 Puffs/Inhaler INH 06/04/25 08:59 1 puffs DAILY EMPERATRIZ Administration Warfarin Sodium 5 mg 05/05/25 16:00 05/05/25 16:22 Warfarin Sod 5 Mg Tab PO 06/04/25 15:59 5 mg [id number]@1600 EMPERATRIZ Administration
[2025-05-06] MEDS: FUROSEMIDE 40 MG/4 ML VIAL IV SCH (16:02)
[2025-05-06] MEDS: POLYETHYLENE (MIRALAX) 17 GM PACK PO PRN (16:10)
[2025-05-06] MEDS: guaiFENesin 600 MG TABCR PO SCH (16:47)
[2025-05-06] MEDS: FORMOTEROL 20 MCG/2 ML VIAL NEB SCH (19:27)
[2025-05-06] MEDS: ACETIC AC/HYDROCORTISONE OTIC 10ML BTL OT SCH (20:34)
[2025-05-06] MEDS: LANTUS PER UNIT CHARGE SQ SCH (20:36)
[2025-05-06] MEDS ORDERED: LANTUS PER UNIT CHARGE SQ SCH (21:00)
[2025-05-06] MEDS ORDERED: Nursing to Pharmacy Communication SCH (21:45)
[2025-05-07 07:49] LABS: Hematocrit (blood only) 38.9 % (42.0-52.0); Hemoglobin 13.0 g/dl (14.0-18.0); Mean Corpuscular Hemoglobin 28.4 pg (25.0-34.0); Mean Corpuscular Volume 85.1 fL (80.0-100.0); Platelet Count 262 K/uL (130-400); RDW Standard Deviation 55.8 fL (36.4-46.3); Red Blood Count 4.57 M/uL (4.70-6.10); White Blood Count 8.76 K/ul (4.8-10.8)
[2025-05-07 08:05] LABS: Anion Gap 3.0 (3-11); Blood Urea Nitrogen 8.0 mg/dl (6-23); Calcium 9.3 mg/dl (8.6-10.3); Carbon Dioxide 38.0 mmol/L (21-32); Chloride 95.0 mmol/L (98-107); Creatinine Clr Calc Pharmacy 149.1 ml/min; Glucose 268.0 mg/dl (70-99(Fasting)); Magnesium 1.6 mg/dl (1.7-2.4); Potassium 3.7 mmol/L (3.5-5.1); Sodium 136.0 mmol/L (136-145)
[2025-05-07 08:20] LABS: INR 3.3 (0.9-1.1); Prothrombin Time 32.1 Seconds (9.0-12.0)
[2025-05-07] MEDS: ACETIC AC/HYDROCORTISONE OTIC 10ML BTL OT SCH (09:00)
--- NOTE | 2025-05-07 10:22 | Pharmacy Report ---
Pharmacy Glycemic Short Note 2 - Date of Service May 07, 2025 - Glycemic Short BSG Results (Last 24 hours): 05/06/25 05/06/25 05/06/25 12:04 16:23 20:02 Glucose POC Glucose 298 H 125 H 118 H 05/07/25 05/07/25 07:31 08:15 Glucose 268 H POC Glucose 249 H OUTPATIENT ANTIDIABETIC REGIMEN: * Toujeo 60 units SC HS * Mounjaro 2.5 mg SC weekly HbA1c: 8.8% (05/06/25) ASSESSMENT: 05/07: * Stanton received 145 units of insulin yesterday (60 were basal) * Fasting BSG this AM elevated, only glycemic stressor noted is ceftriaxone. Historically without steroids, 60-70 units of basal daily has been sufficient. Also typically does well with full HS basal dosing, potentially michael phenomenon occurring with split dosing? Will continue current dosing and this time and trend. * NovoLog at historic parameters, no adjustments at this time. 05/06: * AISLINN is a 54 year old male known to pharmacy glycemic service due to prior admissions/consultations * Consulted on 05/06/25 due to hyperglycemia this AM * Patient presented with shortness of breath w/ acute on chronic HFpEF * Will utilize past inpatient glycemic data to guide initial insulin dosing PLAN FOR INPATIENT GLYCEMIC CONTROL: * Basal insulin * Lantus 30 units SQ BID * Bolus insulin * NovoLog per scale ACHS or Q6hrs while NPO * Goal Range: Low 110 mg/dL - High 140 mg/dL * Correction Factor: 20 mg/dL/unit * Nutritional / Prandial insulin per carb ratio of 1 unit per 4 grams CHO consumed
[2025-05-07] MEDS: LORATADINE 10 MG TAB PO ONE (12:59)
[2025-05-07] MEDS: PSEUDOEPHEDRINE HCL 30 MG TAB PO STA (12:59)
--- NOTE | 2025-05-07 13:53 | Hospitalist Progress Note ---
Date of Service May 07, 2025 Assessment & Plan (1) Shortness of breath: Plan: Mr Milner is a 54 year old male with PMH chronic diastolic heart failure [EF = 55-59%; TTE 03/2024], chronic venous insufficiency, history of SVT, CAD, history of STEMI, history of subdural hematoma/subarachnoid hemorrhage with no operative intervention, HTN, HLD, COPD, DARIA intolerant to CPAP, history of PE on Coumadin, insulin-requiring DM II with diabetic peripheral neuropathy, GERD, ARNOLD, BPH/chronic urinary retention with chronic indwelling Lloyd catheter placement c/b recurrent UTIs, mood disorder, chronic pain syndrome, prior opioid on buprenorphine, low testosterone, tobacco use disorder admitted for management of acute on chronic HFpEF exacerbation Patient reporting more congestion and cold-like symptoms today, as well as right ear discomfort. #Right ear discomfort #Congestion no drainage, swelling or erythema trial of antihistamine and pseudophed continue acetic acid drops #Acute on chronic HFpEF CXR: suspected mild pulmonary congestion In ER given 80 mg Lasix IV Monitor I&O's, daily weight, low sodium diet Continue spironolactone CBC, BMP in am DDx: COPD exacerbation Negative respiratory biofire panel Currently not hypoxic on RA continue lasix to 40mg bid IV will likely transition to PO in 1-2 days #COPD Continue home inhalers Pulmicort and budesonide bid mucinex scheduled #Hypokalemia K: 2.8 In ER given Total 60meq potassium chloride p.o. Replace and monitor Pt taking KCl once daily at home and in past been on BID. Will need to monitor and possibly further adjust continue K 40meq BID for now #Hypomagnesemia Magnesium: 1.5 Replace and Monitor #Abnormal UA, acute complicated cystitis/CAUTI POA #H/O Lloyd catheter #H/O recurrent UTI Pt concern may have another UTI reports fever/chills at home -- Urine Cx: (+) Klebsiella Lloyd Cath exchange ordered continue CTX #HTN #HLD #CAD, h/o STEMI Continue statin, aspirin, metoprolol #Neuropathy #Chronic pain Continue Cymbalta, gabapentin, buprenorphine #Prior PE Anticoagulated on Coumadin INR: 3.1 Continue Coumadin w/ daily INR monitoring #Insulin DM II, uncontrolled Hgb A1c 10.1 as of 03/14/25 Improved to 8.8% Basal/bolus insulin Hold home Stephanie #Iron deficiency anemia Hgb stable Continue iron supplementation #BPH Continue finasteride #GERD Continue PPI, Pepcid #Tobacco use disorder Nicotine patch ordered #DARIA Intolerant to CPAP DVT Prophylaxis On Coumadin, INR therapeutic continue telemetry Full Code as per discussion with pt Follows with Dr Mc for routine care Admission and Anticipated Discharge Date Admission Date: May 04, 2025 Subjective reports increased sinus congestion and some discomfort in right ear reports minor relief with acetic acid otic drops agreeable to trial antihistamine and pseudophed at this time Physical Exam Constitutional: WD/WN, vitals as above Cardiovascular: RRR, no murmur, no edema Gastrointestinal (Abdomen): normal bowel sounds, soft, nontender, no hepatosplenomegaly Results & Data Results & Data Vital Signs (Past 12 Hours) Vital Signs Temp Pulse Resp BP Pulse Ox O2 Del Method O2 Flow Rate 05/07/25 11:30 36.5 C 60 18 143/70 H 93 Nasal Cannula 3 05/07/25 08:00 Room Air 05/07/25 07:49 36.5 C 61 18 111/64 97 Nasal Cannula 3 05/07/25 06:57 71 18 96 Nasal Cannula 3 05/07/25 03:09 36.5 C 61 18 96/59 L 95 Room Air Laboratory Results Short CBC 05/07/25 Range/Units 07:31 WBC 8.76 (4.8-10.8) K/ul Hgb 13.0 L (14.0-18.0) g/dl Hct 38.9 L (42.0-52.0) % Plt Count 262 (130-400) K/uL BMP 05/07/25 07:31 Sodium 136 Potassium 3.7 Chloride 95 L Carbon Dioxide 38 H BUN 8 Creatinine 0.96 Glucose 268 H Calcium 9.3 Medications Administered Home Medications Medication Instructions Recorded Confirmed Last Taken albuterol sulfate 90 mcg/actuation 2 inh inhalation Q4H PRN Shortness 08/29/24 05/04/25 Unknown aerosol inhaler Of Breath Or Wheezing aspirin 81 mg tablet,delayed 81 mg PO QAM 08/29/24 05/04/25 04/05/25 release atorvastatin 80 mg tablet 80 mg PO PM 08/29/24 05/04/25 04/04/25 buprenorphine HCl 8 mg sublingual 8 mg sublingual TID 08/29/24 05/04/25 04/05/25 08:00 tablet cyclobenzaprine 10 mg tablet 10 mg PO BID PRN muscle spasms 08/29/24 05/04/25 Unknown duloxetine 60 mg capsule,delayed 60 mg PO QAM 08/29/24 05/04/25 04/05/25 release famotidine 20 mg tablet 20 mg PO HS 08/29/24 05/04/25 04/04/25 ferrous sulfate 325 mg (65 mg 325 mg PO QAM 08/29/24 05/04/25 04/05/25 iron) tablet finasteride 5 mg tablet 5 mg PO QAM 08/29/24 05/04/25 04/05/25 fluticasone 250 mcg-salmeterol 50 1 inh inhalation BID 08/29/24 05/04/25 04/05/25 08:00 mcg/dose blistr powdr for inhalation folic acid 1 mg tablet 1 mg PO QAM 08/29/24 05/04/25 04/05/25 isosorbide dinitrate 30 mg tablet 30 mg PO QAM 08/29/24 05/04/25 04/05/25 metoprolol succinate 50 mg 75 mg PO BID 08/29/24 05/04/25 04/05/25 08:00 tablet,extended release 24 hr ondansetron HCl 4 mg tablet 4 mg PO TID PRN Nausea And Vomiting 08/29/24 05/04/25 Unknown spironolactone 25 mg tablet 25 mg PO QAM 08/29/24 05/04/25 04/05/25 pantoprazole 40 mg tablet,delayed 40 mg PO BID #60 tabs 09/04/24 05/04/25 04/05/25 08:00 release insulin glargine U-300 conc 300 60 unit subcut HS 02/06/25 05/04/25 04/04/25 unit/mL (3 mL) subcutaneous pen (Toujeo Max U-300 SoloStar) ipratropium 0.5 mg-albuterol 3 mg 3 ml inhalation TID 02/06/25 05/04/25 04/05/25 08:00 (2.5 mg base)/3 mL nebulization soln sennosides 8.6 mg tablet (senna) 8.6 mg PO DAILY PRN Constipation 02/06/25 05/04/25 Unknown umeclidinium 62.5 mcg/actuation 1 inh inhalation DAILY 02/06/25 05/04/25 04/05/25 blister powder for inhalation (Incruse Ellipta) potassium chloride 20 mEq 20 meq PO DAILY 04/05/25 05/04/25 04/05/25 tablet,extended release(part/cryst) warfarin 5 mg tablet 2.5 - 5 mg PO DAILY 04/05/25 05/04/25 04/04/25 furosemide 40 mg tablet 40 mg PO BID 05/04/25 05/04/25 Unknown gabapentin 300 mg capsule 300 mg PO QID 05/04/25 05/04/25 Unknown tirzepatide 2.5 mg/0.5 mL 2.5 mg subcut WK 05/04/25 05/04/25 Unknown subcutaneous pen injector (Stephanie) Active Medications Generic Name Dose Route Start Last Admin Trade Name Freq PRN Reason Stop Dose Admin Acetic Acid/Hydrocortisone 4 drops 05/07/25 09:00 05/07/25 09:00 Acetic Ac/Hydrocortisone Otic 10ml Btl OT 06/05/25 18:59 4 drops Q6H EMPERATRIZ Administration Aspirin 81 mg 05/05/25 09:00 05/07/25 09:02 Aspirin 81 Mg Ectab PO 06/04/25 08:59 81 mg QAM EMPERATRIZ Administration Atorvastatin Calcium 80 mg 05/05/25 12:00 05/07/25 13:00 Atorvastatin 40 Mg Tab PO 06/04/25 11:59 80 mg DAILY@1200 EMPERATRIZ Administration Budesonide 0.5 mg 05/04/25 21:00 05/07/25 06:57 Budesonide 0.5 Mg/2 Ml Vial (Pulmicort) NEB 06/03/25 20:59 0.5 mg BIDR EMPERATRIZ Administration Buprenorphine HCl 8 mg 05/04/25 21:05 05/07/25 09:12 Buprenorphine Hcl 8 Mg Subl SL 06/03/25 21:04 8 mg BID EMPERATRIZ Administration Buprenorphine HCl 4 mg 05/05/25 14:00 05/07/25 13:31 Buprenorphine Hcl 8 Mg Subl SL 06/04/25 13:59 4 mg DAILY@1400 EMPERATRIZ Administration Cyclobenzaprine HCl 10 mg 05/04/25 21:05 05/07/25 08:57 Cyclobenzaprine Hcl 10 Mg Tab PO 06/03/25 21:04 10 mg BID PRN Administration muscle spasms Duloxetine HCl 60 mg 05/05/25 09:00 05/07/25 09:01 Duloxetine Hcl 60 Mg Cap PO 06/04/25 08:59 60 mg QAM EMPERATRIZ Administration Famotidine 20 mg 05/04/25 21:10 05/06/25 20:34 Famotidine 20 Mg Tab PO 06/03/25 21:09 20 mg HS EMPERATRIZ Administration Finasteride 5 mg 05/05/25 09:00 05/07/25 09:02 Finasteride 5 Mg Tab PO 06/04/25 08:59 5 mg QAM EMPERATRIZ Administration Fluticasone/Vilanterol 1 puffs 05/05/25 09:00 05/07/25 09:01 Fluticasone/Vilanterol 200/25mcg 14 Puffs/Inhaler INH 06/04/25 08:59 1 puffs DAILY EMPERATRIZ Administration Folic Acid 1 mg 05/05/25 09:00 05/07/25 09:02 Folic Acid 1 Mg Tab PO 06/04/25 08:59 1 mg QAM EMPERATRIZ Administration Formoterol Fumarate 20 mcg 05/06/25 19:00 05/07/25 06:57 Formoterol 20 Mcg/2 Ml Vial NEB 06/05/25 18:59 Not Given BIDR EMPERATRIZ Furosemide 40 mg 05/06/25 17:00 05/07/25 09:01 Furosemide 40 Mg/4 Ml Vial IV 06/05/25 16:59 40 mg [id number] EMPERATRIZ Administration Gabapentin 300 mg 05/05/25 09:00 05/07/25 13:00 Gabapentin 300 Mg Cap PO 06/04/25 08:59 300 mg QID EMPERATRIZ Administration Guaifenesin 600 mg 05/06/25 15:45 05/07/25 08:59 Guaifenesin 600 Mg Tabcr PO 06/05/25 15:44 600 mg Q12 EMPERATRIZ Administration Promethazine HCl 12.5 mg in 50.5 mls @ 202 mls/hr 05/05/25 11:37 05/05/25 12:22 Phenergan IV 06/04/25 11:36 Infused Q6H PRN Infusion Nausea And Vomiting Acetaminophen 1,000 mg in 100 mls @ 400 mls/hr 05/05/25 14:05 05/07/25 13:32 Ofirmev IV 05/08/25 14:04 400 mls/hr Q12H PRN Administration Pain Ceftriaxone Sodium 2,000 mg in 50 mls @ 100 mls/hr 05/05/25 16:00 05/06/25 16:35 Rocephin IV 05/15/25 15:59 Infused Q24H EMPERATRIZ Infusion Insulin Aspart 0 units 05/05/25 07:30 05/07/25 12:57 Insulin Aspart Per Unit Charge SC 06/04/25 07:29 22 units ACHS EMPERATRIZ Administration Insulin Glargine 30 units 05/06/25 21:00 05/07/25 08:57 Lantus Per Unit Charge SQ 06/05/25 20:59 30 units BID EMPERATRIZ Administration Lactobacillus Acidophilus 1,250 mg 05/05/25 16:15 05/07/25 08:59 Advanced Probiotic 625 Mg Capsule PO 06/04/25 16:14 1,250 mg DAILY EMPERATRIZ Administration Metoprolol Succinate 75 mg 05/05/25 09:00 05/07/25 09:00 Metoprolol Succ 25mg Ext Rel Tab PO 06/04/25 08:59 75 mg BID EMPERATRIZ Administration Miscellaneous 1 each 05/05/25 08:59 05/07/25 08:38 Remove Nicoderm Patch N/A 06/04/25 08:58 1 each DAILY@0859 EMPERATRIZ Administration Nicotine 1 patch 05/05/25 09:00 05/07/25 08:59 Nicotine 21 Mg/24 Hr Tdsy TD 06/04/25 08:59 1 patch QAM EMPERATRIZ Administration Pantoprazole Sodium 40 mg 05/05/25 09:00 05/07/25 09:03 Pantoprazole 40 Mg Tab PO 06/04/25 08:59 40 mg BID EMPERATRIZ Administration Polyethylene Glycol 17 gm 05/04/25 20:47 05/07/25 08:57 Polyethylene (Miralax) 17 Gm Pack PO 06/03/25 20:46 17 gm DAILY PRN Administration Constipation Potassium Chloride 40 meq 05/05/25 09:10 05/07/25 08:57 Potassium Chloride 10 Meq Tabcr PO 06/04/25 09:09 40 meq BID EMPERATRIZ Administration Spironolactone 25 mg 05/05/25 09:00 05/07/25 09:03 Spironolactone 25 Mg Tab PO 06/04/25 08:59 25 mg QAM EMPERATRIZ Administration Umeclidinium [place] 1 puffs 05/05/25 09:00 05/07/25 09:01 Umeclidinium [place] 62.5mcg/Blister 7 Puffs/Inhaler INH 06/04/25 08:59 1 puffs DAILY EMPERATRIZ Administration Warfarin Sodium 5 mg 05/05/25 16:00 05/06/25 16:01 Warfarin Sod 5 Mg Tab PO 06/04/25 15:59 5 mg [id number]@1600 EMPERATRIZ Administration
[2025-05-07] MEDS: POTASSIUM CHLORIDE CRTAB 20 MEQ TABCR PO STA (13:56)
[2025-05-07] MEDS: MAGNESIUM SULFATE / D5W 1 GM/100 ML BAG IV SCH (13:56)
[2025-05-08 06:56] LABS: Hematocrit (blood only) 40.3 % (42.0-52.0); Hemoglobin 13.3 g/dl (14.0-18.0); Mean Corpuscular Hemoglobin 27.9 pg (25.0-34.0); Mean Corpuscular Volume 84.7 fL (80.0-100.0); Platelet Count 280 K/uL (130-400); RDW Standard Deviation 54.4 fL (36.4-46.3); Red Blood Count 4.76 M/uL (4.70-6.10); White Blood Count 9.68 K/ul (4.8-10.8)
[2025-05-08 07:12] LABS: Anion Gap 5.0 (3-11); Blood Urea Nitrogen 9.0 mg/dl (6-23); Calcium 9.4 mg/dl (8.6-10.3); Carbon Dioxide 35.0 mmol/L (21-32); Chloride 95.0 mmol/L (98-107); Creatinine Clr Calc Pharmacy 159.2 ml/min; Glucose 256.0 mg/dl (70-99(Fasting)); Potassium 3.8 mmol/L (3.5-5.1); Sodium 135.0 mmol/L (136-145)
[2025-05-08 07:33] LABS: INR 3.5 (0.9-1.1); Prothrombin Time 34.2 Seconds (9.0-12.0)
[2025-05-08] MEDS: MAGNESIUM SULFATE / D5W 1 GM/100 ML BAG IV SCH (08:37)
[2025-05-08] MEDS: PSEUDOEPHEDRINE HCL 30 MG TAB PO STA (09:35)
[2025-05-08] MEDS: LORATADINE 10 MG TAB PO SCH (09:35)
--- NOTE | 2025-05-08 10:10 | Hospitalist Progress Note ---
Date of Service May 08, 2025 Assessment & Plan (1) Shortness of breath: Plan: Mr Milner is a 54 year old male with PMH chronic diastolic heart failure [EF = 55-59%; TTE 03/2024], chronic venous insufficiency, history of SVT, CAD, history of STEMI, history of subdural hematoma/subarachnoid hemorrhage with no operative intervention, HTN, HLD, COPD, DARIA intolerant to CPAP, history of PE on Coumadin, insulin-requiring DM II with diabetic peripheral neuropathy, GERD, ARNOLD, BPH/chronic urinary retention with chronic indwelling Lloyd catheter placement c/b recurrent UTIs, mood disorder, chronic pain syndrome, prior opioid on buprenorphine, low testosterone, tobacco use disorder admitted for management of acute on chronic HFpEF exacerbation Patient reporting resdiual congestion still. Patient diuersising well, net negative ~1.5 L. Anticipate possible transition to PO in 1-2days #Right ear discomfort #Congestion no drainage, swelling or erythema trial of antihistamine and pseudophed continue acetic acid drops #Acute on chronic HFpEF CXR: suspected mild pulmonary congestion In ER given 80 mg Lasix IV Monitor I&O's, daily weight, low sodium diet Continue spironolactone CBC, BMP in am DDx: COPD exacerbation Negative respiratory biofire panel remains on RA continue lasix to 40mg bid IV will likely transition to PO tomorrow #COPD Continue home inhalers Pulmicort and budesonide bid mucinex scheduled #Hypokalemia K: 2.8 In ER given Total 60meq potassium chloride p.o. Replace and monitor Pt taking KCl once daily at home and in past been on BID. Will need to monitor and possibly further adjust continue K 40meq BID for now #Hypomagnesemia Magnesium: 1.5 Replace and Monitor #Abnormal UA, acute complicated cystitis/CAUTI POA #H/O Lloyd catheter #H/O recurrent UTI Pt concern may have another UTI reports fever/chills at home -- Urine Cx: (+) Klebsiella Lloyd Cath exchanged continue CTX #HTN #HLD #CAD, h/o STEMI Continue statin, aspirin, metoprolol #Neuropathy #Chronic pain Continue Cymbalta, gabapentin, buprenorphine #Prior PE Anticoagulated on Coumadin INR: 3.1 Continue Coumadin w/ daily INR monitoring #Insulin DM II, uncontrolled Hgb A1c 10.1 as of 03/14/25 Improved to 8.8% Basal/bolus insulin Hold home Stephanie #Iron deficiency anemia Hgb stable Continue iron supplementation #BPH Continue finasteride #GERD Continue PPI, Pepcid #Tobacco use disorder Nicotine patch ordered #DARIA Intolerant to CPAP DVT Prophylaxis On Coumadin, INR therapeutic continue telemetry Full Code Follows with Dr Mc for routine care Admission and Anticipated Discharge Date Admission Date: May 04, 2025 Subjective Patient reports continued discomfort "all over" including congestion and sob endorses some subjective relief however in comparison to yesterday, would like to trial pseudophed/claritin one more time Physical Exam Constitutional: WD/WN, vitals as above Cardiovascular: rrr, improved edema ble Gastrointestinal (Abdomen): normal bowel sounds, soft, nontender, no hepatosplenomegaly Results & Data Results & Data Vital Signs (Past 12 Hours) Vital Signs Temp Pulse Pulse Resp BP Pulse Ox O2 Del Method 05/08/25 07:53 36.4 C L 57 L 18 132/80 96 Room Air 05/08/25 07:22 59 L 18 98 Nasal Cannula 05/08/25 07:15 54 L 05/08/25 03:11 36.5 C 59 L 16 127/81 96 Room Air 05/07/25 23:27 36.5 C 72 18 125/75 94 Nasal Cannula 05/07/25 23:17 Nasal Cannula O2 Flow Rate 05/08/25 07:53 05/08/25 07:22 3 05/08/25 07:15 05/08/25 03:11 05/07/25 23:27 3 05/07/25 23:17 3 Laboratory Results Short CBC 05/08/25 Range/Units 06:28 WBC 9.68 (4.8-10.8) K/ul Hgb 13.3 L (14.0-18.0) g/dl Hct 40.3 L (42.0-52.0) % Plt Count 280 (130-400) K/uL BMP 05/08/25 06:28 Sodium 135 L Potassium 3.8 Chloride 95 L Carbon Dioxide 35 H BUN 9 Creatinine 0.90 Glucose 256 H Calcium 9.4 Medications Administered Home Medications Medication Instructions Recorded Confirmed Last Taken albuterol sulfate 90 mcg/actuation 2 inh inhalation Q4H PRN Shortness 08/29/24 05/04/25 Unknown aerosol inhaler Of Breath Or Wheezing aspirin 81 mg tablet,delayed 81 mg PO QAM 08/29/24 05/04/25 04/05/25 release atorvastatin 80 mg tablet 80 mg PO PM 08/29/24 05/04/25 04/04/25 buprenorphine HCl 8 mg sublingual 8 mg sublingual TID 08/29/24 05/04/25 04/05/25 08:00 tablet cyclobenzaprine 10 mg tablet 10 mg PO BID PRN muscle spasms 08/29/24 05/04/25 Unknown duloxetine 60 mg capsule,delayed 60 mg PO QAM 08/29/24 05/04/25 04/05/25 release famotidine 20 mg tablet 20 mg PO HS 08/29/24 05/04/25 04/04/25 ferrous sulfate 325 mg (65 mg 325 mg PO QAM 08/29/24 05/04/25 04/05/25 iron) tablet finasteride 5 mg tablet 5 mg PO QAM 08/29/24 05/04/25 04/05/25 fluticasone 250 mcg-salmeterol 50 1 inh inhalation BID 08/29/24 05/04/25 04/05/25 08:00 mcg/dose blistr powdr for inhalation folic acid 1 mg tablet 1 mg PO QAM 08/29/24 05/04/25 04/05/25 isosorbide dinitrate 30 mg tablet 30 mg PO QAM 08/29/24 05/04/25 04/05/25 metoprolol succinate 50 mg 75 mg PO BID 08/29/24 05/04/25 04/05/25 08:00 tablet,extended release 24 hr ondansetron HCl 4 mg tablet 4 mg PO TID PRN Nausea And Vomiting 08/29/24 05/04/25 Unknown spironolactone 25 mg tablet 25 mg PO QAM 08/29/24 05/04/25 04/05/25 pantoprazole 40 mg tablet,delayed 40 mg PO BID #60 tabs 09/04/24 05/04/25 04/05/25 08:00 release insulin glargine U-300 conc 300 60 unit subcut HS 02/06/25 05/04/25 04/04/25 unit/mL (3 mL) subcutaneous pen (Toujeo Max U-300 SoloStar) ipratropium 0.5 mg-albuterol 3 mg 3 ml inhalation TID 02/06/25 05/04/25 04/05/25 08:00 (2.5 mg base)/3 mL nebulization soln sennosides 8.6 mg tablet (senna) 8.6 mg PO DAILY PRN Constipation 02/06/25 05/04/25 Unknown umeclidinium 62.5 mcg/actuation 1 inh inhalation DAILY 02/06/25 05/04/25 04/05/25 blister powder for inhalation (Incruse Ellipta) potassium chloride 20 mEq 20 meq PO DAILY 04/05/25 05/04/25 04/05/25 tablet,extended release(part/cryst) warfarin 5 mg tablet 2.5 - 5 mg PO DAILY 04/05/25 05/04/25 04/04/25 furosemide 40 mg tablet 40 mg PO BID 05/04/25 05/04/25 Unknown gabapentin 300 mg capsule 300 mg PO QID 05/04/25 05/04/25 Unknown tirzepatide 2.5 mg/0.5 mL 2.5 mg subcut WK 05/04/25 05/04/25 Unknown subcutaneous pen injector (Stephanie) Active Medications Generic Name Dose Route Start Last Admin Trade Name Freq PRN Reason Stop Dose Admin Acetic Acid/Hydrocortisone 4 drops 05/07/25 09:00 05/08/25 08:23 Acetic Ac/Hydrocortisone Otic 10ml Btl OT 06/05/25 18:59 4 drops Q6H EMPERATRIZ Administration Aspirin 81 mg 05/05/25 09:00 05/08/25 08:27 Aspirin 81 Mg Ectab PO 06/04/25 08:59 81 mg QAM EMPERATRIZ Administration Atorvastatin Calcium 80 mg 05/05/25 12:00 05/07/25 13:00 Atorvastatin 40 Mg Tab PO 06/04/25 11:59 80 mg DAILY@1200 EMPERATRIZ Administration Budesonide 0.5 mg 05/04/25 21:00 05/08/25 07:21 Budesonide 0.5 Mg/2 Ml Vial (Pulmicort) NEB 06/03/25 20:59 0.5 mg BIDR EMPERATRIZ Administration Buprenorphine HCl 8 mg 05/04/25 21:05 05/08/25 08:38 Buprenorphine Hcl 8 Mg Subl SL 06/03/25 21:04 8 mg BID EMPERATRIZ Administration Buprenorphine HCl 4 mg 05/05/25 14:00 05/07/25 13:31 Buprenorphine Hcl 8 Mg Subl SL 06/04/25 13:59 4 mg DAILY@1400 EMPERATRIZ Administration Cyclobenzaprine HCl 10 mg 05/04/25 21:05 05/08/25 08:37 Cyclobenzaprine Hcl 10 Mg Tab PO 06/03/25 21:04 10 mg BID PRN Administration muscle spasms Duloxetine HCl 60 mg 05/05/25 09:00 05/08/25 08:27 Duloxetine Hcl 60 Mg Cap PO 06/04/25 08:59 60 mg QAM EMPERATRIZ Administration Famotidine 20 mg 05/04/25 21:10 05/07/25 21:42 Famotidine 20 Mg Tab PO 06/03/25 21:09 20 mg HS EMPERATRIZ Administration Finasteride 5 mg 05/05/25 09:00 05/08/25 08:24 Finasteride 5 Mg Tab PO 06/04/25 08:59 5 mg QAM EMPERATRIZ Administration Fluticasone/Vilanterol 1 puffs 05/05/25 09:00 05/08/25 08:28 Fluticasone/Vilanterol 200/25mcg 14 Puffs/Inhaler INH 06/04/25 08:59 1 puffs DAILY EMPERATRIZ Administration Folic Acid 1 mg 05/05/25 09:00 05/08/25 08:27 Folic Acid 1 Mg Tab PO 06/04/25 08:59 1 mg QAM EMPERATRIZ Administration Furosemide 40 mg 05/06/25 17:00 05/08/25 08:23 Furosemide 40 Mg/4 Ml Vial IV 06/05/25 16:59 40 mg [id number] EMPERATRIZ Administration Gabapentin 300 mg 05/05/25 09:00 05/08/25 08:25 Gabapentin 300 Mg Cap PO 06/04/25 08:59 300 mg QID EMPERATRIZ Administration Guaifenesin 600 mg 05/06/25 15:45 05/08/25 08:27 Guaifenesin 600 Mg Tabcr PO 06/05/25 15:44 600 mg Q12 EMPERATRIZ Administration Promethazine HCl 12.5 mg in 50.5 mls @ 202 mls/hr 05/05/25 11:37 05/05/25 12:22 Phenergan IV 06/04/25 11:36 Infused Q6H PRN Infusion Nausea And Vomiting Acetaminophen 1,000 mg in 100 mls @ 400 mls/hr 05/05/25 14:05 05/08/25 03:43 Ofirmev IV 05/08/25 14:04 Infused Q12H PRN Infusion Pain Ceftriaxone Sodium 2,000 mg in 50 mls @ 100 mls/hr 05/05/25 16:00 05/07/25 16:20 Rocephin IV 05/15/25 15:59 Infused Q24H EMPERATRIZ Infusion Magnesium Sulfate/Dextrose 1 gm in 100 mls @ 50 mls/hr 05/08/25 07:30 05/08/25 08:37 Magnesium Sulfate / D5w IV 05/08/25 11:29 50 mls/hr Q2H EMPERATRIZ Administration Insulin Aspart 0 units 05/05/25 07:30 05/08/25 08:38 Insulin Aspart Per Unit Charge SC 06/04/25 07:29 24 units ACHS EMPERATRIZ Administration Lactobacillus Acidophilus 1,250 mg 05/05/25 16:15 05/08/25 08:24 Advanced Probiotic 625 Mg Capsule PO 06/04/25 16:14 1,250 mg DAILY EMPERATRIZ Administration Loratadine 10 mg 05/08/25 09:00 05/08/25 09:35 Loratadine 10 Mg Tab PO 06/07/25 08:59 10 mg QAM EMPERATRIZ Administration Metoprolol Succinate 75 mg 05/05/25 09:00 05/08/25 08:25 Metoprolol Succ 25mg Ext Rel Tab PO 06/04/25 08:59 75 mg BID EMPERATRIZ Administration Miscellaneous 1 each 05/05/25 08:59 05/08/25 08:29 Remove Nicoderm Patch N/A 06/04/25 08:58 1 each DAILY@0859 EMPERATRIZ Administration Nicotine 1 patch 05/05/25 09:00 05/08/25 08:27 Nicotine 21 Mg/24 Hr Tdsy TD 06/04/25 08:59 1 patch QAM EMPREATRIZ Administration Pantoprazole Sodium 40 mg 05/05/25 09:00 05/08/25 08:28 Pantoprazole 40 Mg Tab PO 06/04/25 08:59 40 mg BID EMPERATRIZ Administration Polyethylene Glycol 17 gm 05/04/25 20:47 05/08/25 08:38 Polyethylene (Miralax) 17 Gm Pack PO 06/03/25 20:46 17 gm DAILY PRN Administration Constipation Potassium Chloride 40 meq 05/05/25 09:10 05/08/25 08:37 Potassium Chloride 10 Meq Tabcr PO 06/04/25 09:09 40 meq BID EMPERATRIZ Administration Spironolactone 25 mg 05/05/25 09:00 05/08/25 08:24 Spironolactone 25 Mg Tab PO 06/04/25 08:59 25 mg QAM EMPERATRIZ Administration Umeclidinium [place] 1 puffs 05/05/25 09:00 05/08/25 08:28 Umeclidinium [place] 62.5mcg/Blister 7 Puffs/Inhaler INH 06/04/25 08:59 1 puffs DAILY EMPERATRIZ Administration Warfarin Sodium 5 mg 05/05/25 16:00 05/07/25 15:42 Warfarin Sod 5 Mg Tab PO 06/04/25 15:59 5 mg [id number]@1600 EMPERATRIZ Administration
[2025-05-08] MEDS ORDERED: WARFARIN SOD 2.5 MG TAB PO SCH (16:00)
[2025-05-08] MEDS: ACETAMINOPHEN 1,000 MG/100 ML VIAL IV PRN (16:38)
[2025-05-08] MEDS: LANTUS PER UNIT CHARGE SQ SCH (22:00)
[2025-05-09] MEDS: ONDANSETRON INJ 2 MG/ML 2 ML VIAL IV STA ×2 (06:43→10:08)
[2025-05-09 07:54] LABS: Anion Gap 5.0 (3-11); Blood Urea Nitrogen 11.0 mg/dl (6-23); Calcium 9.4 mg/dl (8.6-10.3); Carbon Dioxide 34.0 mmol/L (21-32); Chloride 96.0 mmol/L (98-107); Creatinine Clr Calc Pharmacy 148.6 ml/min; Glucose 276.0 mg/dl (70-99(Fasting)); Magnesium 2.0 mg/dl (1.7-2.4); Potassium 3.9 mmol/L (3.5-5.1); Sodium 135.0 mmol/L (136-145)
[2025-05-09 08:07] VITALS: RESP 20
[2025-05-09 08:19] LABS: INR 3.5 (0.9-1.1); Prothrombin Time 34.0 Seconds (9.0-12.0)
[2025-05-09] MEDS ORDERED: ONDANSETRON INJ 2 MG/ML 2 ML VIAL IV PRN (09:36)
[2025-05-09] MEDS: LANTUS PER UNIT CHARGE SQ ONE (10:54)
--- NOTE | 2025-05-09 11:08 | CT Scan Report ---
ABDOMEN AND PELVIS CT WITHOUT CONTRAST CT DOSE: 2093.14 mGy.cm HISTORY: nausea/vomiting, contrast allergy TECHNIQUE: Multiaxial CT images of the abdomen and pelvis were performed without contrast. A dose lo wering technique was utilized adhering to the principles of ALARA. COMPARISON STUDY: 08/28/2024 FINDINGS: There is atelectasis in the lung bases, moderate on the left and mild on the right. ABDOMEN: There is interval portal venous gas within the liver. There is pneumatosis at the wall of th e stomach and there is a small amount of venous gas adjacent to the stomach. Otherwise the liver, gal lbladder, spleen, pancreas, and adrenal glands have an unremarkable noncontrast appearance. There is a small nonobstructing calculus at the right kidney. There is no hydronephrosis bilaterally. No abdom inal aortic aneurysm. No significant atherosclerotic calcifications seen. Pelvis: Lloyd catheter is present in the urinary bladder is decompressed. There is moderate retained stool. No bowel inflammation or obstruction seen. No free fluid, free air, or abscess. No enlarged ad enopathy. Osseous structures: There is mild mixed sclerosis and lucency superiorly at the femoral heads consist ent with early AVN. There are mild degenerative changes at the hips and spine. Stable mild height los s at the L1 vertebral body. No acute osseous findings. IMPRESSION: 1. Pneumatosis at the stomach with venous gas adjacent to the stomach and portal venous gas within th e liver. Differential diagnosis includes ischemia/infarction of the stomach versus benign pneumatosis . 2. No other acute findings seen. ACT 112: Positive. There are findings on this exam that require communication between the performing entity and the patient following Patient Test Result Information Act ([place] Act 112) guidelines. The above report was generated using voice recognition software. It may contain grammatical, syntax o r spelling errors. Electronically signed by: Yvon Wilkerson M.D. 05/09/2025 11:06 AM
[2025-05-09 11:24] VITALS: O2SAT 98
[2025-05-09] MEDS: MoRPHine SULFATE 4 MG/ML 1 ML CARP\\VIAL IV STA (13:24)
[2025-05-09] MEDS: LACTATED RINGER'S 500 ML IV ONE (13:28)
[2025-05-09] MEDS: LACTATED RINGER'S 1,000 ML IV SCH (13:32)
[2025-05-09 13:35] LABS: Base Excess VBG 11.1 mEq/L; HCO3 VBG 39 mmol/L; Oxygen Saturation VBG < 60.0 %; PCO2 VBG 65 mmHg (38-50); PO2 VBG 29 mmHg; pH VBG 7.39 (7.36-7.41)
[2025-05-09 13:40] LABS: Hematocrit (blood only) 46.5 % (42.0-52.0); Hemoglobin 15.0 g/dl (14.0-18.0); Immature Granulocytes # (auto) 0.05 K/uL (0.01-0.20); Immature Granulocytes % (auto) 0.4 %; Mean Corpuscular Hemoglobin 27.6 pg (25.0-34.0); Mean Corpuscular Volume 85.5 fL (80.0-100.0); Platelet Count 263 K/uL (130-400); RDW Standard Deviation 55.8 fL (36.4-46.3); Red Blood Count 5.44 M/uL (4.70-6.10); White Blood Count 13.32 K/ul (4.8-10.8)
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
[2025-05-09 13:55] LABS: Anion Gap 5.0 (3-11); Blood Urea Nitrogen 12.0 mg/dl (6-23); Calcium 9.7 mg/dl (8.6-10.3); Carbon Dioxide 36.0 mmol/L (21-32); Chloride 93.0 mmol/L (98-107); Creatinine Clr Calc Pharmacy 147.0 ml/min; Glucose 270.0 mg/dl (70-99(Fasting)); Potassium 4.1 mmol/L (3.5-5.1); Sodium 134.0 mmol/L (136-145)
[2025-05-09 14:09] LABS: INR 3.2 (0.9-1.1); Prothrombin Time 31.0 Seconds (9.0-12.0)
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
[2025-05-09] MEDS ORDERED: INSULIN ASPART PER UNIT CHARGE SC ONE (14:30)
--- NOTE | 2025-05-09 15:06 | Pharmacy Report ---
Pharmacy Glycemic Short Note 2 - Date of Service May 09, 2025 - Glycemic Short BSG Results (Last 24 hours): 05/08/25 05/08/25 05/09/25 17:17 20:20 07:02 Glucose 276 H POC Glucose 224 H 199 H 05/09/25 05/09/25 05/09/25 07:53 11:54 13:21 Glucose 270 H POC Glucose 280 H 279 H OUTPATIENT ANTIDIABETIC REGIMEN: * Toujeo 60 units SC HS * Mounjaro 2.5 mg SC weekly HbA1c: 8.8% (05/06/25) ASSESSMENT: 05/09: * Patient received 151 units of insulin yesterday with variable BSG control (65 units Lantus + 86 units Novolog) * Fasting BSG of 280 mg/dL this AM despite increase in basal yesterday. Initial plan was to further increase today -additional 10 units ordered for AM. However, patient with multiple episodes of N/V throughout the day. Abnormal CT findings. Patient made NPO. GI consulted and recommending transfer to tertiary center for further evaluation. Because of this, will reduce HS Lantus to dose per BSG scale with max of 50 units. * Novolog has been held thus far today (per MD order). Persistent hyperglycemia; 280, 279, 270 mg/dL. Ordered one time dose of Novolog 6 units. 05/07: * Stanton received 145 units of insulin yesterday (60 were basal) * Fasting BSG this AM elevated, only glycemic stressor noted is ceftriaxone. Historically without steroids, 60-70 units of basal daily has been sufficient. Also typically does well with full HS basal dosing, potentially michael phenomenon occurring with split dosing? Will continue current dosing and this time and trend. * NovoLog at historic parameters, no adjustments at this time. 05/06: * AISLINN is a 54 year old male known to pharmacy glycemic service due to prior admissions/consultations * Consulted on 05/06/25 due to hyperglycemia this AM * Patient presented with shortness of breath w/ acute on chronic HFpEF * Will utilize past inpatient glycemic data to guide initial insulin dosing PLAN FOR INPATIENT GLYCEMIC CONTROL: * Basal insulin * Lantus 10 units SC this AM * Lantus 40-45-50 units SC HS (see eMAR for details) * Bolus insulin * NovoLog per scale ACHS or Q6hrs while NPO * Goal Range: Low 110 mg/dL - High 140 mg/dL * Correction Factor: 20 mg/dL/unit * Nutritional / Prandial insulin per carb ratio of 1 unit per 3 grams CHO consumed
[2025-05-09 15:21] VITALS: BP 143/80; PULSE 66; TEMP 97.5
[2025-05-09] MEDS ORDERED: PANTOPRAZOLE BOLUS/DRIP IV STA (15:46)
[2025-05-09] MEDS: HYDROmorphone INJ 0.5 MG/0.5 ML SYR IV STA (15:51)
--- NOTE | 2025-05-09 16:18 | Discharge Summary ---
Discharge Summary Date of Service May 09, 2025 Principal Dx & Hospital Course #1 = Principal Diagnosis (1) Shortness of breath: Mr Milner is a 54 year old male with PMH chronic diastolic heart failure [EF = 55-59%; TTE 03/2024], chronic venous insufficiency, history of SVT, CAD, history of STEMI, history of subdural hematoma/subarachnoid hemorrhage with no operative intervention, HTN, HLD, COPD, DARIA intolerant to CPAP, history of PE on Coumadin, insulin-requiring DM II with diabetic peripheral neuropathy, GERD, ARNOLD, BPH/chronic urinary retention with chronic indwelling Lloyd catheter placement c/b recurrent UTIs, mood disorder, chronic pain syndrome, prior opioid on buprenorphine, low testosterone, tobacco use disorder admitted for management of acute on chronic HFpEF exacerbation Patient reporting resdiual congestion still. Patient diuersising well, net negative ~1.5 L. Anticipate possible transition to PO in 1-2days #Right ear discomfort #Congestion no drainage, swelling or erythema trial of antihistamine and pseudophed continue acetic acid drops #Acute on chronic HFpEF CXR: suspected mild pulmonary congestion In ER given 80 mg Lasix IV Monitor I&O's, daily weight, low sodium diet Continue spironolactone CBC, BMP in am DDx: COPD exacerbation Negative respiratory biofire panel remains on RA continue lasix to 40mg bid IV will likely transition to PO tomorrow #COPD Continue home inhalers Pulmicort and budesonide bid mucinex scheduled #Hypokalemia K: 2.8 In ER given Total 60meq potassium chloride p.o. Replace and monitor Pt taking KCl once daily at home and in past been on BID. Will need to monitor and possibly further adjust continue K 40meq BID for now #Hypomagnesemia Magnesium: 1.5 Replace and Monitor #Abnormal UA, acute complicated cystitis/CAUTI POA #H/O Lloyd catheter #H/O recurrent UTI Pt concern may have another UTI reports fever/chills at home -- Urine Cx: (+) Klebsiella Lloyd Cath exchanged continue CTX #HTN #HLD #CAD, h/o STEMI Continue statin, aspirin, metoprolol #Neuropathy #Chronic pain Continue Cymbalta, gabapentin, buprenorphine #Prior PE Anticoagulated on Coumadin INR: 3.1 Continue Coumadin w/ daily INR monitoring #Insulin DM II, uncontrolled Hgb A1c 10.1 as of 03/14/25 Improved to 8.8% Basal/bolus insulin Hold home Max[place] #Iron deficiency anemia Hgb stable Continue iron supplementation #BPH Continue finasteride #GERD Continue PPI, Pepcid #Tobacco use disorder Nicotine patch ordered #DARIA Intolerant to CPAP DVT Prophylaxis On Coumadin, INR therapeutic continue telemetry Full Code Follows with Dr Mc for routine care Notes For Next Care Provider Patient is 54 year old male with PMH chronic diastolic heart failure [EF = 55- 59%; TTE 03/2024], chronic venous insufficiency, history of SVT, CAD, history of STEMI, history of subdural hematoma/subarachnoid hemorrhage with no operative intervention, HTN, HLD, COPD, DARIA intolerant to CPAP, history of PE on Coumadin, insulin-requiring DM II with diabetic peripheral neuropathy, GERD, ARNOLD, BPH/chronic urinary retention with chronic indwelling Lloyd catheter placement c/b recurrent UTIs, mood disorder, chronic pain syndrome, opioid dependence with history of drug overdose on buprenorphine, low testosterone, tobacco use disorder and other problems listed below presented to ER with c/o SOB. On medicine, given IV bid lasix for fluid overload with improvement. On 05/09/2025 patient with abrupt abdominal pain followed by nausea and vomiting. CT abdomen/pelvis with pneumatosis in stomach. GI and surgery consulted, recommended transfer due to pneumatosis. Talked to emergency surgery at [facility], recommended immediate transfer for consideration of intervention. Accepted to SICU for likely emergent intervention. Of note, patient would like sister and girlfriend (of 25 years) jointly to make decisions on his behalf if he is unable to, confirmed by this provider at bedside. Patient is full code. Medication Changes From Visit -see below Admission HPI Per Admitting Provider Patient is 54 year old male with PMH chronic diastolic heart failure [EF = 55- 59%; TTE 03/2024], chronic venous insufficiency, history of SVT, CAD, history of STEMI, history of subdural hematoma/subarachnoid hemorrhage with no operative intervention, HTN, HLD, COPD, DARIA intolerant to CPAP, history of PE on Coumadin, insulin-requiring DM II with diabetic peripheral neuropathy, GERD, ARNOLD, BPH/chronic urinary retention with chronic indwelling Lloyd catheter placement c/b recurrent UTIs, mood disorder, chronic pain syndrome, opioid dependence with history of drug overdose on buprenorphine, low testosterone, tobacco use disorder and other problems listed below presented to ER with c/o SOB. Per inpatient chart review most recent hospitalization 04/05/2025-04/10/2025 for metabolic encephalopathy, complicated UTI initially treated with IV Zosyn transition to linezolid. Urine culture + enterococcus faecium VRE. His gabapentin was held during admission. Presents today reporting feeling SOB today. Denies chest pain. Reports nonproductive cough. Denies fever or chills, rhinorrhea or sick contacts. Reportedly EMS gave patient nebulizer treatment and patient reports some improvement. Patient reports he feels has increased BLE edema. Patient states his weight has been 410-415 pounds and tells this provider he has not noticed much change in his weight. Per ER physician patient stated he had gained 20 p ounds. Patient states concerned he has another UTI as he states he gets UTI's often but but is unable to describe if having any symptoms. Denies abdominal pain, hematuria. Patient reports took his last dose of Lasix today and is out of his prescription and called for a refill today. Denies fever/chills, diaphoresis, N/V/D/C, BURNETTE, dizziness, syncope, palpitations, hemoptysis, sore throat, abdominal pain, paresthesias, increased weakness, exremity erythema, rashes. Per PCP note on 04/14/2025 gabapentin was decreased to 300 mg 4 times daily. Was switched from Ozempic to Mounjaro. Was given prescription for oxycodone 10 tablets. Home insulin was to be decreased to 60-65 units daily Discharge Exam Gen: A&O 3 NAD, class III obesity HEENT: NCAT, EOMI, not icteric. External ears normal. No rhinorrhea. Moist mucous membranes. Neck: Supple, full range of motion, no observable masses, No meningeal sign. Lungs: No Respiratory distress. CV: RRR, no edema. Abdomen: diffuse tenderness to palpation, no peritonitis MSK: No joint swelling, no redness. Skin: No rashes, petechiae, lesions. Normal color per patient. Neuro: Normal Gait, Grossly intact. Psych: Appropriate for situation. Updated Medication List Medication Instructions Recorded Confirmed Type albuterol sulfate 90 mcg/actuation 2 inh inhalation Q4H PRN Shortness 08/29/24 05/04/25 History aerosol inhaler Of Breath Or Wheezing aspirin 81 mg tablet,delayed 81 mg PO QAM 08/29/24 05/04/25 History release atorvastatin 80 mg tablet 80 mg PO PM 08/29/24 05/04/25 History buprenorphine HCl 8 mg sublingual 8 mg sublingual TID 08/29/24 05/04/25 History tablet cyclobenzaprine 10 mg tablet 10 mg PO BID PRN muscle spasms 08/29/24 05/04/25 History duloxetine 60 mg capsule,delayed 60 mg PO QAM 08/29/24 05/04/25 History release famotidine 20 mg tablet 20 mg PO HS 08/29/24 05/04/25 History ferrous sulfate 325 mg (65 mg 325 mg PO QAM 08/29/24 05/04/25 History iron) tablet finasteride 5 mg tablet 5 mg PO QAM 08/29/24 05/04/25 History fluticasone 250 mcg-salmeterol 50 1 inh inhalation BID 08/29/24 05/04/25 History mcg/dose blistr powdr for inhalation folic acid 1 mg tablet 1 mg PO QAM 08/29/24 05/04/25 History isosorbide dinitrate 30 mg tablet 30 mg PO QAM 08/29/24 05/04/25 History metoprolol succinate 50 mg 75 mg PO BID 08/29/24 05/04/25 History tablet,extended release 24 hr ondansetron HCl 4 mg tablet 4 mg PO TID PRN Nausea And Vomiting 08/29/24 05/04/25 History spironolactone 25 mg tablet 25 mg PO QAM 08/29/24 05/04/25 History pantoprazole 40 mg tablet,delayed 40 mg PO BID #60 tabs 09/04/24 05/04/25 Rx release insulin glargine U-300 conc 300 60 unit subcut HS 02/06/25 05/04/25 History unit/mL (3 mL) subcutaneous pen (Toujeo Max U-300 SoloStar) ipratropium 0.5 mg-albuterol 3 mg 3 ml inhalation TID 02/06/25 05/04/25 History (2.5 mg base)/3 mL nebulization soln sennosides 8.6 mg tablet (senna) 8.6 mg PO DAILY PRN Constipation 02/06/25 05/04/25 History umeclidinium 62.5 mcg/actuation 1 inh inhalation DAILY 02/06/25 05/04/25 History blister powder for inhalation (Incruse Ellipta) potassium chloride 20 mEq 20 meq PO DAILY 04/05/25 05/04/25 History tablet,extended release(part/cryst) warfarin 5 mg tablet 2.5 - 5 mg PO DAILY 04/05/25 05/04/25 History furosemide 40 mg tablet 40 mg PO BID 05/04/25 05/04/25 History gabapentin 300 mg capsule 300 mg PO QID 05/04/25 05/04/25 History tirzepatide 2.5 mg/0.5 mL 2.5 mg subcut WK 05/04/25 05/04/25 History subcutaneous pen injector (Mounjaro) Hospital Stay Data Consultations 05/04/25 18:32 ED Decision to Admit Stat 05/09/25 12:46 Consult General Surgery Routine 05/09/25 13:25 Consult Gastroenterology Stat Diagnostic Imagining Performed 05/09/25 08:01 CT abd pelvis wo con Urgent Pending Results Patient Have Any Pending Studies at Discharge: Yes Discharge Instructions Given to Patient (Per Discharging Provider) Diagnosis: pneumatosis (air) in stomach and liver Follow Up: transfer to [facility] 1. Transfer to [facility]. Total Time Total Time Spent Total Time Spent (In Minutes): I spent a total of 65 minutes in direct patient care, including [id number] time with the patient and/or family, reviewing medical records, ordering and reviewing diagnostic tests, and coordinating care with other healthcare providers. This time includes: history taking, physical examination, medical decision making, counseling, ECG interpretation, imaging interpretation, lab interpretation, orders, and education, excluding time spent in the performance of separately billed services.
[2025-05-09] MEDS: 4.5GM X1 IV ONE (16:28)
[2025-05-09] MEDS: LACTATED RINGER'S 1,000 ML IV ONE (16:30)
[2025-05-09] MEDS: PANTOprazole 40 MG in DEXTROSE 5% MINI-B 100 ML IV SCH (16:39)
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
[2025-05-09] MEDS ORDERED: INSULIN ASPART PER UNIT CHARGE SC SCH (18:00)
[2025-05-09] MEDS ORDERED: PIPERACILLIN/TAZOBACTAM 4.5 GM/100 ML BAG IV SCH (21:00)
[2025-05-09] MEDS ORDERED: LANTUS PER UNIT CHARGE SQ SCH (21:00)
--- NOTE | 2025-05-10 06:48 | Coding Query ---
CODING QUERY FOR UNCONTROLLED DIABETES To promote full compliance with coding requirements relating to patient care, provider participation is requested in all cases of seal extrusion operator uncertainty. Please assist us with the question(s) below: Coding Question: The term uncontrolled Diabetes was used throughout the record. To be able to code this diagnosis properly, could you please clarify the diagnosis below: ( ) Uncontrolled Diabetes meaning hypoglycemia ( x ) Uncontrolled Diabetes meaning hyperglycemia ( ) Other (please specify) Principal Diagnosis: "that condition established after study, to be chiefly responsible for occasioning the admission of the patient to the hospital for care." Co-Existing Principal Diagnosis: "when two or more diagnoses equally meet the criteria for principal diagnosis as determined by the circumstances of admission, diagnostic work up, and/or therapy provided, and the Alphabetic Index, Tabular List, or another coding guideline does not provide sequencing direction, any one of the diagnoses may be sequenced first." "When the physician has documented what appears to be a current diagnosis in the body of the record, but has not included the diagnosis in the final diagnostic statement, the physician should be asked whether the diagnosis should be added." (Source Coding [facility] 2 QTR90. p3-4) [place]
== END 2025-05-09 17:30 | disposition short-term general hospital (02) | DRG 291 ==
LOC: ED 15:58 → 2W 19:15 → SUATTDRO 19:15 → 2W 20:18 → 1E 05-09 16:09

== ENCOUNTER 2025-06-22 17:32 | Observation (INO) ==
[2025-06-22 18:24] LABS: Hematocrit (blood only) 44.4 % (42.0-52.0); Hemoglobin 14.8 g/dl (14.0-18.0); Immature Granulocytes # (auto) 0.07 K/uL (0.01-0.20); Immature Granulocytes % (auto) 0.5 %; Mean Corpuscular Hemoglobin 28.1 pg (25.0-34.0); Mean Corpuscular Volume 84.4 fL (80.0-100.0); Platelet Count 296 K/uL (130-400); RDW Standard Deviation 51.4 fL (36.4-46.3); Red Blood Count 5.26 M/uL (4.70-6.10); White Blood Count 14.80 K/ul (4.8-10.8)
[2025-06-22 18:42] LABS: Alanine Aminotransferase 19 U/L (7-52); Albumin Globulin Ratio 0.9 (0.9-2); Albumin Level 3.5 gm/dl (3.4-5.0); Alkaline Phosphatase 129 U/L (34-104); Anion Gap 7 (3-11); Bilirubin,Total 0.6 mg/dl (0.2-1.0); Blood Urea Nitrogen 6 mg/dl (6-23); Calcium 9.4 mg/dl (8.6-10.3); Carbon Dioxide 29 mmol/L (21-32); Chloride 99 mmol/L (98-107); Globulin 4.1 gm/dl (2.5-4.0); Glucose 179 mg/dl (70-99(Fasting)); Lipase 7 U/L (11-82); Potassium 4.3 mmol/L (3.5-5.1); Sodium 135 mmol/L (136-145); Total Protein 7.6 gm/dl (6.0-8.3)
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
[2025-06-22] MEDS: KETOROLAC TROMETHAMINE 15 MG/ML VIAL IV ONE (19:01)
[2025-06-22 19:25] LABS: Appearance Urine Cloudy (Clear); Bacteria Urine Automated 2+ (None Seen); Glucose Urine UA Negative (Negative); RBC Urine Automated >20 /hpf (0-2); WBC Urine Automated >50 /hpf (0-5)
--- NOTE | 2025-06-22 19:37 | XRay Report ---
Clinical History: Shortness of breath Technique: 2 frontal views of the chest were obtained Comparison is made to the prior examination dated 05/04/2015 Findings: There are no confluent pulmonary infiltrates. The heart size is within normal limits. No pleural effusion or pneumothorax is seen. There is no definite pulmonary nodule. No fracture is noted. A cardiac device is present Impression: No active disease Electronically signed by Leodan Cristobal 06-22-2025 7:36 PM
[2025-06-22] MEDS: CIPROFLOXACIN / D5W 400 MG/200 ML BAG IV STA (20:09)
[2025-06-22 20:29] LABS: Magnesium 1.7 mg/dl (1.7-2.4)
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
[2025-06-22] MEDS ORDERED: ACETAMINOPHEN 500 MG TAB PO PRN (20:50)
[2025-06-22] MEDS: MEROPENEM 500 MG in SYRINGE 0 ML IV SCH (21:03)
[2025-06-22 21:09] LABS: INR 3.0 (0.9-1.1); Prothrombin Time 30.0 Seconds (9.0-12.0)
[2025-06-22] MEDS ORDERED: GLUCOSE 40% GEL 15 GM TUBE PO PRN (22:20)
[2025-06-22] MEDS ORDERED: CARBOHYDRATES FOR HYPOGLYCEMIA PO PRN (22:20)
[2025-06-22] MEDS ORDERED: GLUCOSE 10 TAB/TUBE PO PRN (22:20)
[2025-06-22] MEDS ORDERED: DEXTROSE 50% 50 ML SYRINGE IV PRN (22:20)
[2025-06-22] MEDS ORDERED: GLUCAGON FOR INJ 1 MG VIAL SQ PRN (22:20)
[2025-06-22] MEDS: CYCLOBENZAPRINE HCL 10 MG TAB PO PRN (22:26)
[2025-06-22] MEDS: DOCUSATE SODIUM 100 MG CAP PO SCH (22:26)
[2025-06-22 23:01] LABS: Chlamydia pneumoniae PCR Not Detected (NotDetected); Coronavirus 229E PCR Not Detected (NotDetected); Coronavirus CoV-2 (COVID19)PCR Not Detected (NotDetected); Coronavirus HKU1 PCR Not Detected (NotDetected); Coronavirus NL63 PCR Not Detected (NotDetected); Coronavirus OC43PCR Not Detected (NotDetected); Human Metapneumovirus PCR Not Detected (NotDetected); Parainfluenza Virus 1 PCR Not Detected (NotDetected); Parainfluenza Virus 2 PCR Not Detected (NotDetected); Parainfluenza Virus 3 PCR Not Detected (NotDetected); Parainfluenza Virus 4 PCR Not Detected (NotDetected); Respiratory Syncytial VirusPCR Not Detected (NotDetected); Rhinovirus/Enterovirus PCR Not Detected (NotDetected)
[2025-06-22] MEDS: ATORVASTATIN 40 MG TAB PO SCH (23:12)
[2025-06-22] MEDS: METOPROLOL SUCC 25MG EXT REL TAB PO SCH (23:13)
[2025-06-22] MEDS: FLUTICASONE/VILANTEROL 200/25MCG 14 PUFFS/INHALER INH SCH (23:13)
[2025-06-22] MEDS: GABAPENTIN 300 MG CAP PO SCH (23:13)
[2025-06-22] MEDS: INSULIN ASPART PER UNIT CHARGE SC SCH (23:14)
[2025-06-22] MEDS: FAMOTIDINE 20 MG TAB PO SCH (23:16)
[2025-06-23] MEDS: guaiFENesin 600 MG TABCR PO SCH (00:26)
[2025-06-23] MEDS: NICOTINE 21 MG/24 HR TDSY TD SCH (00:26)
[2025-06-23 06:46] LABS: Hematocrit (blood only) 41.7 % (42.0-52.0); Hemoglobin 13.9 g/dl (14.0-18.0); Immature Granulocytes # (auto) 0.06 K/uL (0.01-0.20); Immature Granulocytes % (auto) 0.5 %; Mean Corpuscular Hemoglobin 28.4 pg (25.0-34.0); Mean Corpuscular Volume 85.3 fL (80.0-100.0); Platelet Count 268 K/uL (130-400); RDW Standard Deviation 51.7 fL (36.4-46.3); Red Blood Count 4.89 M/uL (4.70-6.10); White Blood Count 12.76 K/ul (4.8-10.8)
[2025-06-23 07:22] LABS: Anion Gap 7.0 (3-11); Blood Urea Nitrogen 8.0 mg/dl (6-23); Calcium 9.0 mg/dl (8.6-10.3); Carbon Dioxide 30.0 mmol/L (21-32); Chloride 98.0 mmol/L (98-107); Creatinine Clr Calc Pharmacy 164.7 ml/min; Glucose 204.0 mg/dl (70-99(Fasting)); Potassium 3.9 mmol/L (3.5-5.1); Sodium 135.0 mmol/L (136-145)
[2025-06-23 07:48] LABS: INR 2.7 (0.9-1.1); Prothrombin Time 26.7 Seconds (9.0-12.0)
[2025-06-23] MEDS: POTASSIUM CHLORIDE CRTAB 20 MEQ TABCR PO SCH (08:39)
[2025-06-23] MEDS: FUROSEMIDE 40 MG TAB PO SCH (08:40)
[2025-06-23] MEDS: FINASTERIDE 5 MG TAB PO SCH (08:40)
[2025-06-23] MEDS: FERROUS SULFATE 325 MG TAB PO SCH (08:41)
[2025-06-23] MEDS: FOLIC ACID 1 MG TAB PO SCH (08:41)
[2025-06-23] MEDS: UMECLIDINIUM BROMIDE 62.5MCG/BLISTER 7 PUFFS/INHALER INH SCH (08:42)
--- NOTE | 2025-06-23 10:20 | Hospitalist Progress Note ---
Date of Service June 23, 2025 Assessment & Plan (1) Complicated UTI (urinary tract infection): Plan: 54 yo M w/ PMH of chronic diastolic heart failure (EF 55%, TTE 2023), CAD/STEMI, subdural hematoma/subarachnoid hemorrhage, hypertension, hyperlipidemia, COPD, recurrent PE on Coumadin, DM 2 insulin requiring, recurrent UTIs secondary to BPH/chronic urinary retention indwelling Lloyd catheter, urolithiasis, gastric pneumatosis, anxiety/mood/personality, chronic pain on buprenorphine, drug- seeking behavior as per records, hx MRSA/VRE, ongoing tobacco abuse. He comes in w/ few days history of not feeling well and having chills. Patient feeling weaker and thinks his partner might not be able to care for him at home anymore. IV ciprofloxacin administered at the ER. He is being managed for the following: Complicated UTI CAUTI hx recurrent UTIs secondary to BPH w chronic indwelling Lloyd catheter No overt sepsis for now Lloyd exchanged in the ED 06/22 Follow urine CS, Meropenem 06/22 (given microbiologic history) ID consult contingent on final CS results Other chronic medical conditions: c/w or resume home meds as and when able. chronic diastolic heart failure (EF 55%, TTE 2023), patient euvolemic history CAD/STEMI as per records history subdural hematoma/subarachnoid hemorrhage as per records hypertension, stable hyperlipidemia on statin Rx COPD, chronic exertional SOB symptoms recurrent PE on Coumadin, INR therapeutic DM 2 insulin requiring, suboptimal control as of recent hemoglobin A1c of 8.8 last April 2025. basal bolus insulin, ISS BG goal 110-140, carb count coverage anxiety/mood/personality disorder as per records, at baseline chronic pain on buprenorphine/drug-seeking behavior as per records: Judicious narcotic use given drug-seeking behavior history, IV Tylenol only if patient strictly n.p.o. hx MRSA/VRE functional disability ongoing tobacco abuse: Nicotine patch PT OT eval Social service re: placement DVT prophylaxis. Coumadin INR goal between 2 and 3, c/w home coumadin Full code Text document was generated using [employer] voice recognition software. It may contain grammatical or spelling errors. Kindly contact undersigned for clarification of any documentation item in question. Admission and Anticipated Discharge Date Admission Date: June 22, 2025 Subjective Patient was seen and examined at bedside. Patient was lying in bed, on room air, NAD, resting comfortably. Patient reports feeling better gradually, reports no other complaints. Physical Exam Physical Exam: GENERAL: Comfortable, morbidly obese, pleasant, looks older than stated age, no respiratory distress SKIN: Normal color, warm HEENT: Alopecia, bespectacled, pale palpebral conjunctivae, no ptosis, moist buccal mucosa NECK : Supple, short neck, no tenderness CHEST : Decreased breath sounds, no tenderness HEART : RRR, no obvious murmurs ABDOMEN: distention, no tenderness EXTREMITIES : Minimal LE swelling, no LE tenderness, no conspicuous deformities noted NEUROLOGIC : Coherent, no facial asymmetry, gait and stance not assessed UC w/ light yellow urine collection noted. Results & Data Results & Data Vital Signs (Past 12 Hours) Vital Signs Temp Pulse Resp BP Pulse Ox O2 Del Method O2 Flow Rate 06/23/25 08:18 36.8 C 60 18 161/73 H 94 Nasal Cannula 4 06/22/25 23:11 68 118/59 L 06/22/25 22:30 Nasal Cannula 4 06/22/25 22:30 36.7 C 20 122/56 L 97 Nasal Cannula 4
[2025-06-23] MEDS ORDERED: ALBUTEROL HFA 8 GM INHALER INH PRN (11:19)
[2025-06-23] MEDS ORDERED: WARFARIN SOD 5 MG TAB PO SCH (11:30)
[2025-06-23] MEDS: WARFARIN SOD 5 MG TAB PO SCH (16:28)
[2025-06-23] MEDS: SENNA 8.6 MG TAB PO PRN (19:50)
[2025-06-23] MEDS: POLYETHYLENE (MIRALAX) 17 GM PACK PO PRN (20:20)
[2025-06-23] MEDS: REMOVE NICODERM PATCH SCH (20:21)
[2025-06-23] MEDS ORDERED: LANTUS PER UNIT CHARGE SQ SCH (21:00)
[2025-06-23] MEDS: LANTUS PER UNIT CHARGE SQ ONE (21:15)
[2025-06-23] MEDS ORDERED: ACETAMINOPHEN 500 MG TAB PO PRN (21:17)
[2025-06-24 08:04] LABS: Hematocrit (blood only) 41.5 % (42.0-52.0); Hemoglobin 13.4 g/dl (14.0-18.0); Mean Corpuscular Hemoglobin 27.8 pg (25.0-34.0); Mean Corpuscular Volume 86.1 fL (80.0-100.0); Platelet Count 235 K/uL (130-400); RDW Standard Deviation 52.4 fL (36.4-46.3); Red Blood Count 4.82 M/uL (4.70-6.10); White Blood Count 11.66 K/ul (4.8-10.8)
[2025-06-24 08:20] LABS: Anion Gap 3.0 (3-11); Blood Urea Nitrogen 12.0 mg/dl (6-23); Calcium 9.4 mg/dl (8.6-10.3); Carbon Dioxide 35.0 mmol/L (21-32); Chloride 98.0 mmol/L (98-107); Creatinine Clr Calc Pharmacy 148.9 ml/min; Glucose 270.0 mg/dl (70-99(Fasting)); Magnesium 2.0 mg/dl (1.7-2.4); Potassium 4.0 mmol/L (3.5-5.1); Sodium 136.0 mmol/L (136-145)
[2025-06-24 08:30] LABS: INR 1.6 (0.9-1.1); Prothrombin Time 16.7 Seconds (9.0-12.0)
[2025-06-24] MEDS: ASPIRIN 81 MG ECTAB PO SCH (08:56)
[2025-06-24] MEDS: SPIRONOLACTONE 25 MG TAB PO SCH (08:58)
[2025-06-24] MEDS ORDERED: POTASSIUM CHLORIDE CRTAB 20 MEQ TABCR PO SCH (09:00)
[2025-06-24] MEDS: PROMETHAZINE 12.5 MG/50.5 ML BAG IV PRN (09:09)
[2025-06-24] MEDS ORDERED: ALBUT/IPRATROP 3MG/0.5MG NEB 3 ML VIAL INH PRN (09:58)
[2025-06-24] MEDS: FLUTICASONE PROPIONATE NA SPR 16 GM BTL SCH (11:35)
--- NOTE | 2025-06-24 12:05 | Hospitalist Progress Note ---
Date of Service June 24, 2025 Assessment & Plan (1) Complicated UTI (urinary tract infection): Plan: 54 yo M w/ PMH of chronic diastolic heart failure (EF 55%, TTE 2023), CAD/STEMI, subdural hematoma/subarachnoid hemorrhage, hypertension, hyperlipidemia, COPD, recurrent PE on Coumadin, DM 2 insulin requiring, recurrent UTIs secondary to BPH/chronic urinary retention indwelling Lloyd catheter, urolithiasis, gastric pneumatosis, anxiety/mood/personality, chronic pain on buprenorphine, drug- seeking behavior as per records, hx MRSA/VRE, ongoing tobacco abuse. He comes in w/ few days history of not feeling well and having chills. Patient feeling weaker and thinks his partner might not be able to care for him at home anymore. IV ciprofloxacin administered at the ER. He is being managed for the following: Complicated UTI CAUTI hx recurrent UTIs secondary to BPH w chronic indwelling Lloyd catheter No overt sepsis for now Lloyd exchanged in the ED 06/22 Follow urine CS, Meropenem 06/22 (given microbiologic history) UCx contaminant, plan for 5-7 d Rx. Other chronic medical conditions: c/w or resume home meds as and when able. chronic diastolic heart failure (EF 55%, TTE 2023), patient euvolemic history CAD/STEMI as per records history subdural hematoma/subarachnoid hemorrhage as per records hypertension, stable hyperlipidemia on statin Rx COPD, chronic exertional SOB symptoms recurrent PE on Coumadin, INR INR 1.6, give additional coumadin 1 mg today. DM 2 insulin requiring, suboptimal control as of recent hemoglobin A1c of 8.8 last April 2025. basal bolus insulin, ISS BG goal 110-140, carb count coverage anxiety/mood/personality disorder as per records, at baseline chronic pain on buprenorphine/drug-seeking behavior as per records: Judicious narcotic use given drug-seeking behavior history, IV Tylenol only if patient strictly n.p.o. hx MRSA/VRE functional disability ongoing tobacco abuse: Nicotine patch PT OT eval Social service re: placement DVT prophylaxis. c/w home coumadin Full code Text document was generated using [employer] voice recognition software. It may contain grammatical or spelling errors. Kindly contact undersigned for clarification of any documentation item in question. Admission and Anticipated Discharge Date Admission Date: June 22, 2025 Subjective Patient was seen and examined at bedside. Patient was lying in bed, on room air, NAD, resting comfortably. Reports moving bowel on 2nd, able to willy diet w/ no belly pain, is moving gas, denies nausea, vomiting. c/w prn bowel regimen, both rn and pt educated. Physical Exam Physical Exam: GENERAL: Comfortable, morbidly obese, pleasant, looks older than stated age, no respiratory distress SKIN: Normal color, warm HEENT: Alopecia, bespectacled, pale palpebral conjunctivae, no ptosis, moist buccal mucosa NECK : Supple, short neck, no tenderness CHEST : Decreased breath sounds, no tenderness HEART : RRR, no obvious murmurs ABDOMEN: distention, no tenderness EXTREMITIES : Minimal LE swelling, no LE tenderness, no conspicuous deformities noted NEUROLOGIC : Coherent, no facial asymmetry, gait and stance not assessed UC w/ light yellow urine collection noted. Results & Data Results & Data Vital Signs (Past 12 Hours) Vital Signs Temp Pulse Resp BP Pulse Ox O2 Del Method 06/24/25 07:00 36.5 C 59 L 18 123/75 99 Room Air
[2025-06-24] MEDS: WARFARIN SOD 1 MG TAB PO STA (13:28)
[2025-06-24] MEDS: LANTUS PER UNIT CHARGE SQ SCH (20:36)
[2025-06-25 06:11] LABS: Hematocrit (blood only) 42.3 % (42.0-52.0); Hemoglobin 13.3 g/dl (14.0-18.0); Mean Corpuscular Hemoglobin 27.1 pg (25.0-34.0); Mean Corpuscular Volume 86.3 fL (80.0-100.0); Platelet Count 236 K/uL (130-400); RDW Standard Deviation 52.5 fL (36.4-46.3); Red Blood Count 4.90 M/uL (4.70-6.10); White Blood Count 11.16 K/ul (4.8-10.8)
[2025-06-25 06:29] LABS: Anion Gap 2.0 (3-11); Blood Urea Nitrogen 14.0 mg/dl (6-23); Calcium 9.5 mg/dl (8.6-10.3); Carbon Dioxide 34.0 mmol/L (21-32); Chloride 100.0 mmol/L (98-107); Creatinine Clr Calc Pharmacy 133.3 ml/min; Glucose 238.0 mg/dl (70-99(Fasting)); Potassium 3.9 mmol/L (3.5-5.1); Sodium 136.0 mmol/L (136-145)
[2025-06-25 06:55] LABS: INR 1.4 (0.9-1.1); Prothrombin Time 14.9 Seconds (9.0-12.0)
[2025-06-25] MEDS: WARFARIN SOD 2.5 MG TAB PO ONE (08:40)
--- NOTE | 2025-06-25 10:32 | Hospitalist Progress Note ---
Date of Service June 25, 2025 Assessment & Plan (1) Complicated UTI (urinary tract infection): Plan: 54 yo M w/ PMH of chronic diastolic heart failure (EF 55%, TTE 2023), CAD/STEMI, subdural hematoma/subarachnoid hemorrhage, hypertension, hyperlipidemia, COPD, recurrent PE on Coumadin, DM 2 insulin requiring, recurrent UTIs secondary to BPH/chronic urinary retention indwelling Lloyd catheter, urolithiasis, gastric pneumatosis, anxiety/mood/personality, chronic pain on buprenorphine, drug- seeking behavior as per records, hx MRSA/VRE, ongoing tobacco abuse. He comes in w/ few days history of not feeling well and having chills. Patient feeling weaker and thinks his partner might not be able to care for him at home anymore. IV ciprofloxacin administered at the ER. He is being managed for the following: Complicated UTI CAUTI hx recurrent UTIs secondary to BPH w chronic indwelling Lloyd catheter No overt sepsis for now Lloyd exchanged in the ED 06/22 Follow urine CS, Meropenem 06/22 (given microbiologic history). UCx contaminant, plan for 5 d Rx. Other chronic medical conditions: c/w or resume home meds as and when able. chronic diastolic heart failure (EF 55%, TTE 2023), patient euvolemic history CAD/STEMI as per records history subdural hematoma/subarachnoid hemorrhage as per records hypertension, stable hyperlipidemia on statin Rx COPD, chronic exertional SOB symptoms recurrent PE on Coumadin, INR INR 1.4, give additional coumadin 2.5 mg today. DM 2 insulin requiring, suboptimal control as of recent hemoglobin A1c of 8.8 last April 2025. basal bolus insulin, ISS BG goal 110-140, carb count coverage anxiety/mood/personality disorder as per records, at baseline chronic pain on buprenorphine/drug-seeking behavior as per records: Judicious narcotic use given drug-seeking behavior history, IV Tylenol only if patient strictly n.p.o. hx MRSA/VRE functional disability ongoing tobacco abuse: Nicotine patch PT OT eval Social service re: placement DVT prophylaxis. c/w home coumadin Full code Text document was generated using [email or web address] voice recognition software. It may contain grammatical or spelling errors. Kindly contact undersigned for clarification of any documentation item in question. Admission and Anticipated Discharge Date Admission Date: June 22, 2025 Subjective Patient was seen and examined at bedside. Patient was lying in bed, on room air, NAD, resting comfortably. Reports moving bowel on 2nd, able to willy diet w/ no belly pain, is moving gas, denies nausea, vomiting. c/w jaci and prn bowel regimen. Physical Exam Physical Exam: GENERAL: Comfortable, morbidly obese, pleasant, looks older than stated age, no respiratory distress SKIN: Normal color, warm HEENT: Alopecia, bespectacled, pale palpebral conjunctivae, no ptosis, moist buccal mucosa NECK : Supple, short neck, no tenderness CHEST : Decreased breath sounds, no tenderness HEART : RRR, no obvious murmurs ABDOMEN: chronic distended appearance, no tenderness EXTREMITIES : Minimal LE swelling, no LE tenderness, no conspicuous deformities noted NEUROLOGIC : Coherent, no facial asymmetry, gait and stance not assessed UC w/ light yellow urine collection noted. Results & Data Results & Data Vital Signs (Past 12 Hours) Vital Signs Temp Pulse Resp BP Pulse Ox O2 Del Method 06/25/25 07:21 36.7 C 70 18 119/73 97 Room Air
[2025-06-26 07:29] LABS: INR 1.6 (0.9-1.1); Prothrombin Time 16.9 Seconds (9.0-12.0)
[2025-06-26] MEDS: WARFARIN SOD 2 MG TAB PO ONE (09:58)
--- NOTE | 2025-06-26 14:49 | Hospitalist Progress Note ---
Date of Service June 26, 2025 Assessment & Plan (1) Complicated UTI (urinary tract infection): Plan: 54 yo M w/ PMH of chronic diastolic heart failure (EF 55%, TTE 2023), CAD/STEMI, subdural hematoma/subarachnoid hemorrhage, hypertension, hyperlipidemia, COPD, recurrent PE on Coumadin, DM 2 insulin requiring, recurrent UTIs secondary to BPH/chronic urinary retention indwelling Lloyd catheter, urolithiasis, gastric pneumatosis, anxiety/mood/personality, chronic pain on buprenorphine, drug- seeking behavior as per records, hx MRSA/VRE, ongoing tobacco abuse. He comes in w/ few days history of not feeling well and having chills. Patient feeling weaker and thinks his partner might not be able to care for him at home anymore. IV ciprofloxacin administered at the ER. He is being managed for the following: Complicated UTI CAUTI hx recurrent UTIs secondary to BPH w chronic indwelling Lolyd catheter No overt sepsis for now Lloyd exchanged in the ED 06/22 Follow urine CS, Meropenem 06/22 (given microbiologic history). UCx contaminant, plan for 5 d Rx. dc atb rj. Other chronic medical conditions: c/w or resume home meds as and when able. chronic diastolic heart failure (EF 55%, TTE 2023), patient euvolemic history CAD/STEMI as per records history subdural hematoma/subarachnoid hemorrhage as per records hypertension, stable hyperlipidemia on statin Rx COPD, chronic exertional SOB symptoms recurrent PE on Coumadin, INR INR 1.4, give additional coumadin 2 mg today. DM 2 insulin requiring, suboptimal control as of recent hemoglobin A1c of 8.8 last April 2025. basal bolus insulin, ISS BG goal 110-140, carb count coverage anxiety/mood/personality disorder as per records, at baseline chronic pain on buprenorphine/drug-seeking behavior as per records: Judicious narcotic use given drug-seeking behavior history, IV Tylenol only if patient strictly n.p.o. hx MRSA/VRE functional disability ongoing tobacco abuse: Nicotine patch PT OT eval, recs is rehab, given call for P2P, awaiting call back. Social service re: placement DVT prophylaxis. c/w home coumadin Full code Text document was generated using [employer] voice recognition software. It may contain grammatical or spelling errors. Kindly contact undersigned for clarification of any documentation item in question. Admission and Anticipated Discharge Date Admission Date: June 22, 2025 Subjective Patient was seen and examined at bedside. Patient was lying in bed, on room air, NAD, resting comfortably. Reports moving bowel on 2nd, able to willy diet w/ no belly pain, is moving gas, denies nausea, vomiting. Pt would like to wait for enema until rj. c/w jaci and prn bowel regimen. Physical Exam Physical Exam: GENERAL: Comfortable, morbidly obese, pleasant, looks older than stated age, no respiratory distress SKIN: Normal color, warm HEENT: Alopecia, bespectacled, pale palpebral conjunctivae, no ptosis, moist buccal mucosa NECK : Supple, short neck, no tenderness CHEST : Decreased breath sounds, no tenderness HEART : RRR, no obvious murmurs ABDOMEN: chronic distended appearance, no tenderness EXTREMITIES : Minimal LE swelling, no LE tenderness, no conspicuous deformities noted NEUROLOGIC : Coherent, no facial asymmetry, gait and stance not assessed UC w/ light yellow urine collection noted. Results & Data Results & Data Vital Signs (Past 12 Hours) Vital Signs Temp Pulse Resp BP Pulse Ox O2 Del Method 06/26/25 07:40 36.3 C L 64 16 144/85 H 97 Room Air 06/26/25 07:26 Room Air
[2025-06-26] MEDS: DICLOFENAC SOD 1% GEL 100 GM TUBE EXT PRN (15:47)
[2025-06-26] MEDS: WARFARIN SOD 2.5 MG TAB PO SCH (16:08)
[2025-06-27 06:33] LABS: Hematocrit (blood only) 40.8 % (42.0-52.0); Hemoglobin 13.3 g/dl (14.0-18.0); Mean Corpuscular Hemoglobin 28.0 pg (25.0-34.0); Mean Corpuscular Volume 85.9 fL (80.0-100.0); Platelet Count 234 K/uL (130-400); RDW Standard Deviation 52.0 fL (36.4-46.3); Red Blood Count 4.75 M/uL (4.70-6.10); White Blood Count 11.40 K/ul (4.8-10.8)
[2025-06-27 07:12] LABS: INR 2.1 (0.9-1.1); Prothrombin Time 21.1 Seconds (9.0-12.0)
[2025-06-27 07:55] LABS: Anion Gap 6.0 (3-11); Blood Urea Nitrogen 17.0 mg/dl (6-23); Calcium 9.4 mg/dl (8.6-10.3); Carbon Dioxide 30.0 mmol/L (21-32); Chloride 100.0 mmol/L (98-107); Creatinine Clr Calc Pharmacy 132.1 ml/min; Glucose 237.0 mg/dl (70-99(Fasting)); Potassium 4.0 mmol/L (3.5-5.1); Sodium 136.0 mmol/L (136-145)
--- NOTE | 2025-06-27 14:42 | Hospitalist Progress Note ---
Date of Service June 27, 2025 Assessment & Plan (1) Complicated UTI (urinary tract infection): Plan: 54 yo M w/ PMH of chronic diastolic heart failure (EF 55%, TTE 2023), CAD/STEMI, subdural hematoma/subarachnoid hemorrhage, hypertension, hyperlipidemia, COPD, recurrent PE on Coumadin, DM 2 insulin requiring, recurrent UTIs secondary to BPH/chronic urinary retention indwelling Lloyd catheter, urolithiasis, gastric pneumatosis, anxiety/mood/personality, chronic pain on buprenorphine, drug- seeking behavior as per records, hx MRSA/VRE, ongoing tobacco abuse. He comes in w/ few days history of not feeling well and having chills. Patient feeling weaker and thinks his partner might not be able to care for him at home anymore. IV ciprofloxacin administered at the ER. He is being managed for the following: Complicated UTI CAUTI hx recurrent UTIs secondary to BPH w chronic indwelling Lloyd catheter No overt sepsis for now Lloyd exchanged in the ED 06/22 Follow urine CS, Meropenem 06/22 (given microbiologic history). UCx contaminant, plan for 5 d Rx. dc atb rj. Denies any neurological symptoms in the drained urine seems to be normal in color Antibiotic course will be finished tomorrow Constipation Complains of abdominal bloating with discomfort Receiving laxatives Will try glycerin suppository tomorrow and if no improvement will give Fleet enema Other chronic medical conditions: c/w or resume home meds as and when able. chronic diastolic heart failure (EF 55%, TTE 2023), patient euvolemic history CAD/STEMI as per records history subdural hematoma/subarachnoid hemorrhage as per records hypertension, stable hyperlipidemia on statin Rx COPD, chronic exertional SOB symptoms recurrent PE on Coumadin, INR INR 1.4, give additional coumadin 2 mg today. DM 2 insulin requiring, suboptimal control as of recent hemoglobin A1c of 8.8 last April 2025. basal bolus insulin, ISS BG goal 110-140, carb count coverage anxiety/mood/personality disorder as per records, at baseline chronic pain on buprenorphine/drug-seeking behavior as per records: Judicious narcotic use given drug-seeking behavior history, IV Tylenol only if patient strictly n.p.o. hx MRSA/VRE functional disability ongoing tobacco abuse: Nicotine patch PT OT eval, recs is rehab, given call for P2P, awaiting call back.Awaiting placement Social service re: placement DVT prophylaxis. c/w home coumadin Full code Text document was generated using [email or web address] voice recognition software. It may contain grammatical or spelling errors. Kindly contact undersigned for clarification of any documentation item in question. Admission and Anticipated Discharge Date Admission Date: June 22, 2025 Subjective 06/27/2025 The patient was seen and examined in medical floor He has been complaining of constipation and has not bowel movement for the last 3 or 4 days Minimal abdominal distention and discomfort but no pain and no nausea no vomiting Denies any other significant symptoms Review of Systems Review of Systems: All systems reviewed and unremarkable except as noted below Physical Exam Physical Exam: Lying in bed without any acute distress Constitutional: well developed, well nourished, + ill appearing and + obese Eyes: PERRL, conjunctivae normal, anicteric sclerae ENMT: external ear and nose normal, oropharynx normal Neck: trachea midline, no thyromegaly Respiratory: no respiratory distress Auscultation: lungs clear to auscultation bilaterally Cardiovascular: Rate/Rhythm: regular rate and regular rhythm; not tachycardic Heart Sounds: normal S1 and normal S2; no murmur Extremities: + edema (Trace edema bilaterally with chronic skin changes) Gastrointestinal (Abdomen): Inspection/Auscultation: + abdomen distended (Minimally distended but soft) and normal bowel sounds Percussion/Palpation: abdomen soft; abdomen nontender Musculoskeletal: No acute arthritis involving any of the joint Neurologic: normal touch/pain/proprioception and moves all extremities; no focal motor deficits Lymphatic: no cervical or axillary lymphadenopathy Results & Data Results & Data Vital Signs (Past 12 Hours) Vital Signs Temp Pulse Resp BP Pulse Ox O2 Del Method O2 Flow Rate 06/27/25 14:26 36.4 C L 71 17 135/79 96 Room Air 06/27/25 07:40 Room Air 06/27/25 07:16 36.4 C L 60 15 124/67 99 Nasal Cannula 4 Laboratory Results Short CBC 06/27/25 Range/Units 05:50 WBC 11.40 H (4.8-10.8) K/ul Hgb 13.3 L (14.0-18.0) g/dl Hct 40.8 L (42.0-52.0) % Plt Count 234 (130-400) K/uL [facility] 06/27/25 05:50 Sodium 136 Potassium 4.0 Chloride 100 Carbon Dioxide 30 BUN 17 Creatinine 1.06 Glucose 237 H Calcium 9.4 Medications Administered Current Inpatient Medications Acetaminophen (Acetaminophen 500 Mg Tab) 1,000 mg PO TID PRN PRN Reason: pain/fever Stop: 07/23/25 21:16 Albuterol (Albuterol Hfa 8 Gm Inhaler) 2 puffs INH Q4H PRN PRN Reason: Shortness Of Breath Or Wheezing Stop: 07/23/25 11:18 Albuterol (Albut/Ipratrop 3mg/0.5mg Neb 3 Ml Vial) 3 ml INH TID PRN; Protocol PRN Reason: Wheezing Stop: 07/24/25 09:57 Aspirin (Aspirin 81 Mg Ectab) 81 mg PO QAM [facility] Stop: 07/24/25 08:59 Last Admin: 06/27/25 08:40 Dose: 81 mg Atorvastatin Calcium (Atorvastatin 40 Mg Tab) 80 mg PO PM [facility] Stop: 07/22/25 20:59 Last Admin: 06/26/25 20:29 Dose: 80 mg Buprenorphine HCl (Buprenorphine Hcl 8 Mg Subl) 8 mg SL TID [facility] Stop: 07/22/25 20:59 Last Admin: 06/27/25 13:41 Dose: 8 mg Cyclobenzaprine HCl (Cyclobenzaprine Hcl 10 Mg Tab) 10 mg PO BID PRN PRN Reason: Muscle Spasm Stop: 07/22/25 20:46 Last Admin: 06/27/25 08:40 Dose: 10 mg Dextrose (Dextrose 50% 50 Ml Syringe) 25 - 50 ml IV UD PRN; Protocol PRN Reason: Hypoglycemia Protocol Stop: 07/22/25 22:19 Diclofenac Sodium (Diclofenac Sod 1% Gel 100 Gm Tube) 2 gm EXT Q6H PRN; Protocol PRN Reason: right knee pain Stop: 07/26/25 15:14 Last Admin: 06/26/25 15:47 Dose: 2 gm Docusate Sodium (Docusate Sodium 100 Mg Cap) 100 mg PO BID [facility] Stop: 07/22/25 20:59 Last Admin: 06/27/25 08:39 Dose: 100 mg Duloxetine HCl (Duloxetine Hcl 60 Mg Cap) 60 mg PO QAM [facility] Stop: 07/23/25 08:59 Last Admin: 06/27/25 08:41 Dose: 60 mg Famotidine (Famotidine 20 Mg Tab) 20 mg PO HS [facility] Stop: 07/22/25 20:59 Last Admin: 06/26/25 20:30 Dose: 20 mg Ferrous Sulfate (Ferrous Sulfate 325 Mg Tab) 325 mg PO DAILY [facility] Stop: 07/23/25 08:59 Last Admin: 06/27/25 08:41 Dose: 325 mg Finasteride (Finasteride 5 Mg Tab) 5 mg PO QAM [facility] Stop: 07/23/25 08:59 Last Admin: 06/27/25 08:42 Dose: 5 mg Fluticasone Propionate (Fluticasone Propionate Na Spr 16 Gm Btl) 2 sprays NA QAM [facility] Stop: 07/24/25 10:29 Last Admin: 06/27/25 08:42 Dose: 2 sprays Fluticasone/Vilanterol (Fluticasone/Vilanterol 200/25mcg 14 Puffs/Inhaler) 1 puffs INH DAILY [facility] Stop: 07/22/25 22:29 Last Admin: 06/27/25 08:43 Dose: 1 puffs Folic Acid (Folic Acid 1 Mg Tab) 1 mg PO QAM [facility] Stop: 07/23/25 08:59 Last Admin: 06/27/25 08:40 Dose: 1 mg Furosemide (Furosemide 40 Mg Tab) 40 mg PO BID17 [facility] Stop: 07/23/25 08:59 Last Admin: 06/27/25 08:41 Dose: 40 mg Gabapentin (Gabapentin 300 Mg Cap) 300 mg PO QID [facility] Stop: 07/22/25 20:59 Last Admin: 06/27/25 13:41 Dose: 300 mg Glucagon (Glucagon For Inj 1 Mg Vial) 1 mg SQ UD PRN; Protocol PRN Reason: Hypoglycemia Protocol Stop: 07/22/25 22:19 Glucose (Glucose 40% Gel 15 Gm Tube) 15 - 30 gm PO UD PRN; Protocol PRN Reason: Hypoglycemia Protocol Stop: 07/22/25 22:19 Glucose (Glucose 10 Tab/Tube) 4 - 8 tab PO UD PRN; Protocol PRN Reason: Hypoglycemia Protocol Stop: 07/22/25 22:19 Guaifenesin (Guaifenesin 600 Mg Tabcr) 600 mg PO Q12 [facility] Stop: 07/23/25 00:04 Last Admin: 06/27/25 08:40 Dose: 600 mg Meropenem 500 mg/ Syringe 10 mls @ 2 mls/min IV Q6H [facility]; Protocol Stop: 07/02/25 20:29 Last Admin: 06/27/25 13:41 Dose: 2 mls/min Promethazine HCl (Phenergan) 12.5 mg in 50.5 mls @ 202 mls/hr IV Q6H PRN PRN Reason: Nausea And Vomiting Stop: 07/22/25 20:49 Last Infusion: 06/27/25 12:07 Dose: Infused Insulin Aspart (Insulin Aspart Per Unit Charge) 0 units SC ACHS [facility] Stop: 07/22/25 22:19 Last Admin: 06/27/25 12:32 Dose: 9 units Insulin Glargine (Lantus Per Unit Charge) 40 units SQ HS [facility] Stop: 07/24/25 20:59 Last Admin: 06/26/25 20:30 Dose: 40 units Metoprolol Succinate (Metoprolol Succ 25mg Ext Rel Tab) 25 mg PO BID [facility] Stop: 07/22/25 20:59 Last Admin: 06/27/25 08:41 Dose: 25 mg Miscellaneous (Remove Nicoderm Patch) 1 each N/A DAILY@2058 [facility] Stop: 07/23/25 20:58 Last Admin: 06/26/25 20:32 Dose: 1 each Miscellaneous (Carbohydrates For Hypoglycemia ) 15 - 30 gm PO UD PRN PRN Reason: Hypoglycemia Protocol Stop: 07/22/25 22:19 Nicotine (Nicotine 21 Mg/24 Hr Tdsy) 1 patch TD HS [facility] Stop: 07/22/25 21:39 Last Admin: 06/26/25 20:30 Dose: 1 patch Oxycodone HCl (Oxycodone Hcl Ir 5 Mg Tab (Immediate Release)) 10 mg PO Q8H PRN PRN Reason: Pain Stop: 07/06/25 20:46 Last Admin: 06/27/25 10:09 Dose: 10 mg Pantoprazole Sodium (Pantoprazole 40 Mg Tab) 40 mg PO BID [facility] Stop: 07/22/25 20:59 Last Admin: 06/27/25 08:41 Dose: 40 mg Polyethylene Glycol (Polyethylene (Miralax) 17 Gm Pack) 17 gm PO DAILY PRN PRN Reason: Constipation Stop: 07/23/25 19:58 Last Admin: 06/27/25 08:38 Dose: 17 gm Potassium Chloride (Potassium Chloride Crtab 20 Meq Tabcr) 20 meq PO BID [facility] Stop: 07/23/25 08:59 Last Admin: 06/27/25 08:40 Dose: 20 meq Sennosides (Senna 8.6 Mg Tab) 8.6 mg PO DAILY PRN PRN Reason: Constipation Stop: 07/22/25 20:46 Last Admin: 06/26/25 08:38 Dose: 8.6 mg Spironolactone (Spironolactone 25 Mg Tab) 25 mg PO DAILY [facility] Stop: 07/24/25 08:59 Last Admin: 06/27/25 08:42 Dose: 25 mg Umeclidinium Marshall (Umeclidinium Marshall 62.5mcg/Blister 7 Puffs/Inhaler) 1 puffs INH DAILY [facility] Stop: 07/23/25 08:59 Last Admin: 06/27/25 08:43 Dose: 1 puffs Warfarin Sodium (Warfarin Sod 2.5 Mg Tab) 2.5 mg PO Tu@1600 [facility] Stop: 07/26/25 15:59 Last Admin: 06/26/25 16:08 Dose: 2.5 mg Warfarin Sodium (Warfarin Sod 5 Mg Tab) 5 mg PO [id number]@1600 [facility] Stop: 07/23/25 15:59 Last Admin: 06/25/25 16:25 Dose: 5 mg Follow urine culture
[2025-06-27] MEDS: POLYETHYLENE (MIRALAX) 17 GM PACK PO ONE (15:23)
[2025-06-27] MEDS: ACETAMINOPHEN 1,000 MG/100 ML VIAL IV STA (20:07)
[2025-06-28 03:59] LABS: Hematocrit (blood only) 40.8 % (42.0-52.0); Hemoglobin 12.8 g/dl (14.0-18.0); Immature Granulocytes # (auto) 0.06 K/uL (0.01-0.20); Immature Granulocytes % (auto) 0.5 %; Mean Corpuscular Hemoglobin 27.0 pg (25.0-34.0); Mean Corpuscular Volume 86.1 fL (80.0-100.0); Platelet Count 228 K/uL (130-400); RDW Standard Deviation 52.7 fL (36.4-46.3); Red Blood Count 4.74 M/uL (4.70-6.10); White Blood Count 10.96 K/ul (4.8-10.8)
[2025-06-28 04:19] LABS: Anion Gap 6.0 (3-11); Blood Urea Nitrogen 17.0 mg/dl (6-23); Calcium 9.4 mg/dl (8.6-10.3); Carbon Dioxide 31.0 mmol/L (21-32); Chloride 99.0 mmol/L (98-107); Creatinine Clr Calc Pharmacy 164.7 ml/min; Glucose 318.0 mg/dl (70-99(Fasting)); Potassium 4.2 mmol/L (3.5-5.1); Sodium 136.0 mmol/L (136-145)
[2025-06-28 04:26] LABS: INR 2.0 (0.9-1.1); Prothrombin Time 20.7 Seconds (9.0-12.0)
[2025-06-28] MEDS: INSULIN ASPART PER UNIT CHARGE SC STA (04:48)
[2025-06-28] MEDS: ACETAMINOPHEN 1,000 MG/100 ML VIAL IV STA ×2 (13:43→20:50)
[2025-06-28] MEDS: POLYETHYLENE (MIRALAX) 17 GM PACK PO ONE (13:49)
[2025-06-28] MEDS: DOCUSATE SODIUM/SENNA 50/8.6MG TAB PO ONE (13:49)
--- NOTE | 2025-06-28 14:17 | Hospitalist Progress Note ---
Date of Service June 28, 2025 Assessment & Plan (1) Complicated UTI (urinary tract infection): Plan: 54 yo M w/ PMH of chronic diastolic heart failure (EF 55%, TTE 2023), CAD/STEMI, subdural hematoma/subarachnoid hemorrhage, hypertension, hyperlipidemia, COPD, recurrent PE on Coumadin, DM 2 insulin requiring, recurrent UTIs secondary to BPH/chronic urinary retention indwelling Lloyd catheter, urolithiasis, gastric pneumatosis, anxiety/mood/personality, chronic pain on buprenorphine, drug- seeking behavior as per records, hx MRSA/VRE, ongoing tobacco abuse. He comes in w/ few days history of not feeling well and having chills. Patient feeling weaker and thinks his partner might not be able to care for him at home anymore. IV ciprofloxacin administered at the ER. He is being managed for the following: Complicated UTI CAUTI hx recurrent UTIs secondary to BPH w chronic indwelling Lloyd catheter No overt sepsis for now Lloyd exchanged in the ED 06/22 Follow urine CS, Meropenem 06/22 (given microbiologic history). UCx contaminant, plan for 5 d Rx. dc atb rj. Denies any neurological symptoms in the drained urine seems to be normal in color Antibiotic course will be finished tomorrow Antibiotic course is done by today and he remains free from any urological symptoms Constipation Complains of abdominal bloating with discomfort Receiving laxatives Will try glycerin suppository tomorrow and if no improvement will give Fleet enema Does not want to try any suppository today but wants to take additional dose of senna and MiraLAX If there is no bowel movement by tomorrow morning you will receive glycerin suppository and Fleet enema thereafter Discharge to a facility when approved Other chronic medical conditions: c/w or resume home meds as and when able. chronic diastolic heart failure (EF 55%, TTE 2023), patient euvolemic history CAD/STEMI as per records history subdural hematoma/subarachnoid hemorrhage as per records hypertension, stable hyperlipidemia on statin Rx COPD, chronic exertional SOB symptoms recurrent PE on Coumadin, INR INR 1.4, give additional coumadin 2 mg today. DM 2 insulin requiring, suboptimal control as of recent hemoglobin A1c of 8.8 last April 2025. basal bolus insulin, ISS BG goal 110-140, carb count coverage anxiety/mood/personality disorder as per records, at baseline chronic pain on buprenorphine/drug-seeking behavior as per records: Judicious narcotic use given drug-seeking behavior history, IV Tylenol only if patient strictly n.p.o. hx MRSA/VRE functional disability ongoing tobacco abuse: Nicotine patch PT OT shawna, recs is rehab, given call for P2P, awaiting call back.Awaiting placement Social service re: placement DVT prophylaxis. c/w home coumadin Full code Text document was generated using [employer] voice recognition software. It may contain grammatical or spelling errors. Kindly contact undersigned for clarification of any documentation item in question. Admission and Anticipated Discharge Date Admission Date: June 22, 2025 Subjective 06/27/2025 The patient was seen and examined in medical floor He has been complaining of constipation and has not bowel movement for the last 3 or 4 days Minimal abdominal distention and discomfort but no pain and no nausea no vomiting Denies any other significant symptoms 06/28/2025 The patient was seen and examined in medical floor He has not had a bowel movement but passing gas Complains to pain in the right knee and right ankle and awaiting PT Denies any other significant symptoms except minimal wheezing Review of Systems Review of Systems: All systems reviewed and unremarkable except as noted below Physical Exam Physical Exam: Lying in bed without any acute distress Constitutional: well developed, well nourished, + ill appearing and + obese Eyes: PERRL, conjunctivae normal, anicteric sclerae ENMT: external ear and nose normal, oropharynx normal Neck: trachea midline, no thyromegaly Respiratory: no respiratory distress Auscultation: lungs clear to auscultation bilaterally Cardiovascular: Rate/Rhythm: regular rate and regular rhythm; not tachycardic Heart Sounds: normal S1 and normal S2; no murmur Extremities: + edema (Trace edema bilaterally with chronic skin changes) Gastrointestinal (Abdomen): Inspection/Auscultation: + abdomen distended (Minimally distended but soft) and normal bowel sounds Percussion/Palpation: abdomen soft; abdomen nontender Neurologic: normal touch/pain/proprioception and moves all extremities; no focal motor deficits Lymphatic: no cervical or axillary lymphadenopathy Results & Data Results & Data Vital Signs (Past 12 Hours) Vital Signs Temp Pulse Resp BP Pulse Ox O2 Del Method 06/28/25 07:38 36.4 C L 60 17 135/84 95 Room Air Laboratory Results Short CBC 06/28/25 Range/Units 03:28 WBC 10.96 H (4.8-10.8) K/ul Hgb 12.8 L (14.0-18.0) g/dl Hct 40.8 L (42.0-52.0) % Plt Count 228 (130-400) K/uL BMP 06/28/25 03:28 Sodium 136 Potassium 4.2 Chloride 99 Carbon Dioxide 31 BUN 17 Creatinine 0.85 Glucose 318 H* Calcium 9.4 Medications Administered Current Inpatient Medications Acetaminophen (Acetaminophen 500 Mg Tab) 1,000 mg PO TID PRN PRN Reason: pain/fever Stop: 07/23/25 21:16 Albuterol (Albuterol Hfa 8 Gm Inhaler) 2 puffs INH Q4H PRN PRN Reason: Shortness Of Breath Or Wheezing Stop: 07/23/25 11:18 Albuterol (Albut/Ipratrop 3mg/0.5mg Neb 3 Ml Vial) 3 ml INH TID PRN; Protocol PRN Reason: Wheezing Stop: 07/24/25 09:57 Aspirin (Aspirin 81 Mg Ectab) 81 mg PO QAM [facility] Stop: 07/24/25 08:59 Last Admin: 06/28/25 09:25 Dose: 81 mg Atorvastatin Calcium (Atorvastatin 40 Mg Tab) 80 mg PO PM [facility] Stop: 07/22/25 20:59 Last Admin: 06/27/25 20:37 Dose: 80 mg Buprenorphine HCl (Buprenorphine Hcl 8 Mg Subl) 8 mg SL TID [facility] Stop: 07/22/25 20:59 Last Admin: 06/28/25 13:44 Dose: 8 mg Cyclobenzaprine HCl (Cyclobenzaprine Hcl 10 Mg Tab) 10 mg PO BID PRN PRN Reason: Muscle Spasm Stop: 07/22/25 20:46 Last Admin: 06/28/25 09:23 Dose: 10 mg Dextrose (Dextrose 50% 50 Ml Syringe) 25 - 50 ml IV UD PRN; Protocol PRN Reason: Hypoglycemia Protocol Stop: 07/22/25 22:19 Diclofenac Sodium (Diclofenac Sod 1% Gel 100 Gm Tube) 2 gm EXT Q6H PRN; Protocol PRN Reason: right knee pain Stop: 07/26/25 15:14 Last Admin: 06/28/25 12:32 Dose: 2 gm Docusate Sodium (Docusate Sodium 100 Mg Cap) 100 mg PO BID [facility] Stop: 07/22/25 20:59 Last Admin: 06/28/25 09:24 Dose: 100 mg Duloxetine HCl (Duloxetine Hcl 60 Mg Cap) 60 mg PO QAM [facility] Stop: 07/23/25 08:59 Last Admin: 06/28/25 09:24 Dose: 60 mg Famotidine (Famotidine 20 Mg Tab) 20 mg PO HS [facility] Stop: 07/22/25 20:59 Last Admin: 06/27/25 20:34 Dose: 20 mg Ferrous Sulfate (Ferrous Sulfate 325 Mg Tab) 325 mg PO DAILY [facility] Stop: 07/23/25 08:59 Last Admin: 06/28/25 09:24 Dose: 325 mg Finasteride (Finasteride 5 Mg Tab) 5 mg PO QAM [facility] Stop: 07/23/25 08:59 Last Admin: 06/28/25 09:24 Dose: 5 mg Fluticasone Propionate (Fluticasone Propionate Na Spr 16 Gm Btl) 2 sprays NA QAM [facility] Stop: 07/24/25 10:29 Last Admin: 06/28/25 09:23 Dose: 2 sprays Fluticasone/Vilanterol (Fluticasone/Vilanterol 200/25mcg 14 Puffs/Inhaler) 1 puffs INH DAILY [facility] Stop: 07/22/25 22:29 Last Admin: 06/28/25 09:23 Dose: 1 puffs Folic Acid (Folic Acid 1 Mg Tab) 1 mg PO QAM [facility] Stop: 07/23/25 08:59 Last Admin: 06/28/25 09:25 Dose: 1 mg Furosemide (Furosemide 40 Mg Tab) 40 mg PO BID17 [facility] Stop: 07/23/25 08:59 Last Admin: 06/28/25 09:24 Dose: 40 mg Gabapentin (Gabapentin 300 Mg Cap) 300 mg PO QID [facility] Stop: 07/22/25 20:59 Last Admin: 06/28/25 13:44 Dose: 300 mg Glucagon (Glucagon For Inj 1 Mg Vial) 1 mg SQ UD PRN; Protocol PRN Reason: Hypoglycemia Protocol Stop: 07/22/25 22:19 Glucose (Glucose 40% Gel 15 Gm Tube) 15 - 30 gm PO UD PRN; Protocol PRN Reason: Hypoglycemia Protocol Stop: 07/22/25 22:19 Glucose (Glucose 10 Tab/Tube) 4 - 8 tab PO UD PRN; Protocol PRN Reason: Hypoglycemia Protocol Stop: 07/22/25 22:19 Guaifenesin (Guaifenesin 600 Mg Tabcr) 600 mg PO Q12 [facility] Stop: 07/23/25 00:04 Last Admin: 06/28/25 09:25 Dose: 600 mg Meropenem 500 mg/ Syringe 10 mls @ 2 mls/min IV Q6H EMPERATRIZ; Protocol Stop: 07/02/25 20:29 Last Admin: 06/28/25 09:20 Dose: 2 mls/min Promethazine HCl (Phenergan) 12.5 mg in 50.5 mls @ 202 mls/hr IV Q6H PRN PRN Reason: Nausea And Vomiting Stop: 07/22/25 20:49 Last Infusion: 06/28/25 09:57 Dose: Infused Insulin Aspart (Insulin Aspart Per Unit Charge) 0 units SC ACHS [facility] Stop: 07/22/25 22:19 Last Admin: 06/28/25 12:33 Dose: 9 units Insulin Glargine (Lantus Per Unit Charge) 40 units SQ HS [facility] Stop: 07/24/25 20:59 Last Admin: 06/27/25 20:36 Dose: 40 units Lactic Acid (Ammonium Lactate 12% Lotion 225 Gm Btl) 1 gm EXT BID [facility] Stop: 07/28/25 20:59 Metoprolol Succinate (Metoprolol Succ 25mg Ext Rel Tab) 25 mg PO BID [facility] Stop: 07/22/25 20:59 Last Admin: 06/28/25 09:25 Dose: 25 mg Miscellaneous (Remove Nicoderm Patch) 1 each N/A DAILY@2058 [facility] Stop: 07/23/25 20:58 Last Admin: 06/27/25 20:37 Dose: 1 each Miscellaneous (Carbohydrates For Hypoglycemia ) 15 - 30 gm PO UD PRN PRN Reason: Hypoglycemia Protocol Stop: 07/22/25 22:19 Nicotine (Nicotine 21 Mg/24 Hr Tdsy) 1 patch TD HS [facility] Stop: 07/22/25 21:39 Last Admin: 06/27/25 20:34 Dose: 1 patch Oxycodone HCl (Oxycodone Hcl Ir 5 Mg Tab (Immediate Release)) 10 mg PO Q8H PRN PRN Reason: Pain Stop: 07/06/25 20:46 Last Admin: 06/28/25 10:41 Dose: 10 mg Pantoprazole Sodium (Pantoprazole 40 Mg Tab) 40 mg PO BID [facility] Stop: 07/22/25 20:59 Last Admin: 06/28/25 09:24 Dose: 40 mg Polyethylene Glycol (Polyethylene (Miralax) 17 Gm Pack) 17 gm PO DAILY PRN PRN Reason: Constipation Stop: 07/23/25 19:58 Last Admin: 06/28/25 09:18 Dose: 17 gm Potassium Chloride (Potassium Chloride Crtab 20 Meq Tabcr) 20 meq PO BID [facility] Stop: 07/23/25 08:59 Last Admin: 06/28/25 09:24 Dose: 20 meq Sennosides (Senna 8.6 Mg Tab) 8.6 mg PO DAILY PRN PRN Reason: Constipation Stop: 07/22/25 20:46 Last Admin: 06/28/25 09:23 Dose: 8.6 mg Spironolactone (Spironolactone 25 Mg Tab) 25 mg PO DAILY [facility] Stop: 07/24/25 08:59 Last Admin: 06/28/25 09:24 Dose: 25 mg Umeclidinium [place] (Umeclidinium [place] 62.5mcg/Blister 7 Puffs/Inhaler) 1 puffs INH DAILY [facility] Stop: 07/23/25 08:59 Last Admin: 06/28/25 09:23 Dose: 1 puffs Warfarin Sodium (Warfarin Sod 2.5 Mg Tab) 2.5 mg PO Tu@1600 [facility] Stop: 07/26/25 15:59 Last Admin: 06/26/25 16:08 Dose: 2.5 mg Warfarin Sodium (Warfarin Sod 5 Mg Tab) 5 mg PO SuMoWeThFrSa@1600 [facility] Stop: 07/23/25 15:59 Last Admin: 06/27/25 16:03 Dose: 5 mg
[2025-06-28] MEDS: AMMONIUM LACTATE 12% LOTION 225 GM BTL EXT SCH (20:28)
[2025-06-29 06:45] LABS: INR 2.0 (0.9-1.1); Prothrombin Time 20.3 Seconds (9.0-12.0)
--- NOTE | 2025-06-29 12:48 | Hospitalist Progress Note ---
Date of Service June 29, 2025 Assessment & Plan (1) Complicated UTI (urinary tract infection): Plan: 54 yo M w/ PMH of chronic diastolic heart failure (EF 55%, TTE 2023), CAD/STEMI, subdural hematoma/subarachnoid hemorrhage, hypertension, hyperlipidemia, COPD, recurrent PE on Coumadin, DM 2 insulin requiring, recurrent UTIs secondary to BPH/chronic urinary retention indwelling Lloyd catheter, urolithiasis, gastric pneumatosis, anxiety/mood/personality, chronic pain on buprenorphine, drug- seeking behavior as per records, hx MRSA/VRE, ongoing tobacco abuse. He comes in w/ few days history of not feeling well and having chills. Patient feeling weaker and thinks his partner might not be able to care for him at home anymore. IV ciprofloxacin administered at the ER. He is being managed for the following: Complicated UTI CAUTI hx recurrent UTIs secondary to BPH w chronic indwelling Lloyd catheter No overt sepsis for now Lloyd exchanged in the ED 06/22 Follow urine CS, Meropenem 06/22 (given microbiologic history). UCx contaminant, plan for 5 d Rx. dc atb rj. Denies any neurological symptoms in the drained urine seems to be normal in color Antibiotic course will be finished tomorrow Antibiotic course is done by today and he remains free from any urological symptoms Still on antibiotic and will continue for the next few days Constipation Complains of abdominal bloating with discomfort Receiving laxatives Will try glycerin suppository tomorrow and if no improvement will give Fleet enema Does not want to try any suppository today but wants to take additional dose of senna and MiraLAX If there is no bowel movement by tomorrow morning you will receive glycerin suppository and Fleet enema thereafter Discharge to a facility when approved He is already smoked and denies any abdominal complaints Right hip pain Minimal swelling of the right hip around the greater trochanteric area noted Minimally tender with movement of the hip did not produce much pain Will apply local diclofenac sodium Will get an x-ray tomorrow if there is no improvement Other chronic medical conditions: c/w or resume home meds as and when able. chronic diastolic heart failure (EF 55%, TTE 2023), patient euvolemic history CAD/STEMI as per records history subdural hematoma/subarachnoid hemorrhage as per records hypertension, stable hyperlipidemia on statin Rx COPD, chronic exertional SOB symptoms recurrent PE on Coumadin, INR INR 1.4, give additional coumadin 2 mg today. DM 2 insulin requiring, suboptimal control as of recent hemoglobin A1c of 8.8 last April 2025. basal bolus insulin, ISS BG goal 110-140, carb count coverage anxiety/mood/personality disorder as per records, at baseline chronic pain on buprenorphine/drug-seeking behavior as per records: Judicious narcotic use given drug-seeking behavior history, IV Tylenol only if patient strictly n.p.o. hx MRSA/VRE functional disability ongoing tobacco abuse: Nicotine patch PT OT eval, recs is rehab, given call for P2P, awaiting call back.Awaiting placement Social service re: placement DVT prophylaxis. c/w home coumadin Full code Text document was generated using [employer] voice recognition software. It may contain grammatical or spelling errors. Kindly contact undersigned for clarification of any documentation item in question. Admission and Anticipated Discharge Date Admission Date: June 22, 2025 Subjective 06/27/2025 The patient was seen and examined in medical floor He has been complaining of constipation and has not bowel movement for the last 3 or 4 days Minimal abdominal distention and discomfort but no pain and no nausea no vomiting Denies any other significant symptoms 06/28/2025 The patient was seen and examined in medical floor He has not had a bowel movement but passing gas Complains to pain in the right knee and right ankle and awaiting PT Denies any other significant symptoms except minimal wheezing 06/29/2025 The patient was seen and examined in medical floor He has been complaining of pain in the right hip during physical therapy and feels that his right hip is a little protruded outwardly He denies any other significant symptoms Review of Systems Review of Systems: All systems reviewed and unremarkable except as noted below Physical Exam Physical Exam: Lying in bed without any acute distress Constitutional: well developed, well nourished, + ill appearing and + obese Eyes: PERRL, conjunctivae normal, anicteric sclerae ENMT: external ear and nose normal, oropharynx normal Neck: trachea midline, no thyromegaly Respiratory: no respiratory distress Auscultation: lungs clear to auscultation bilaterally Cardiovascular: Rate/Rhythm: regular rate and regular rhythm; not tachycardic Heart Sounds: normal S1 and normal S2; no murmur Extremities: + edema (Trace edema bilaterally with chronic skin changes) Gastrointestinal (Abdomen): Inspection/Auscultation: + abdomen distended (Minimally distended but soft) and normal bowel sounds Percussion/Palpation: abdomen soft; abdomen nontender Musculoskeletal: Examination of the right hip area did not show lipomatous thickening of the skin with minimal tenderness. Movement of the right hip is limited and minimally painful Neurologic: normal touch/pain/proprioception and moves all extremities; no focal motor deficits Lymphatic: no cervical or axillary lymphadenopathy Results & Data Results & Data Vital Signs (Past 12 Hours) Vital Signs Temp Pulse Resp BP Pulse Ox O2 Del Method O2 Flow Rate 06/29/25 07:22 36.4 C L 57 L 18 116/69 100 Nasal Cannula 4 Medications Administered Current Inpatient Medications Acetaminophen (Acetaminophen 500 Mg Tab) 1,000 mg PO TID PRN PRN Reason: pain/fever Stop: 07/23/25 21:16 Albuterol (Albuterol Hfa 8 Gm Inhaler) 2 puffs INH Q4H PRN PRN Reason: Shortness Of Breath Or Wheezing Stop: 07/23/25 11:18 Albuterol (Albut/Ipratrop 3mg/0.5mg Neb 3 Ml Vial) 3 ml INH TID PRN; Protocol PRN Reason: Wheezing Stop: 07/24/25 09:57 Aspirin (Aspirin 81 Mg Ectab) 81 mg PO QAM [facility] Stop: 07/24/25 08:59 Last Admin: 06/29/25 08:25 Dose: 81 mg Atorvastatin Calcium (Atorvastatin 40 Mg Tab) 80 mg PO PM [facility] Stop: 07/22/25 20:59 Last Admin: 06/28/25 20:26 Dose: 80 mg Buprenorphine HCl (Buprenorphine Hcl 8 Mg Subl) 8 mg SL TID [facility] Stop: 07/22/25 20:59 Last Admin: 06/29/25 13:16 Dose: 8 mg Cyclobenzaprine HCl (Cyclobenzaprine Hcl 10 Mg Tab) 10 mg PO BID PRN PRN Reason: Muscle Spasm Stop: 07/22/25 20:46 Last Admin: 06/29/25 08:24 Dose: 10 mg Dextrose (Dextrose 50% 50 Ml Syringe) 25 - 50 ml IV UD PRN; Protocol PRN Reason: Hypoglycemia Protocol Stop: 07/22/25 22:19 Diclofenac Sodium (Diclofenac Sod 1% Gel 100 Gm Tube) 2 gm EXT Q6H PRN; Protocol PRN Reason: right knee pain Stop: 07/26/25 15:14 Last Admin: 06/28/25 12:32 Dose: 2 gm Docusate Sodium (Docusate Sodium 100 Mg Cap) 100 mg PO BID [facility] Stop: 07/22/25 20:59 Last Admin: 06/29/25 08:24 Dose: 100 mg Duloxetine HCl (Duloxetine Hcl 60 Mg Cap) 60 mg PO QAM [facility] Stop: 07/23/25 08:59 Last Admin: 06/29/25 08:26 Dose: 60 mg Famotidine (Famotidine 20 Mg Tab) 20 mg PO HS [facility] Stop: 07/22/25 20:59 Last Admin: 06/28/25 20:26 Dose: 20 mg Ferrous Sulfate (Ferrous Sulfate 325 Mg Tab) 325 mg PO DAILY [facility] Stop: 07/23/25 08:59 Last Admin: 06/29/25 08:24 Dose: 325 mg Finasteride (Finasteride 5 Mg Tab) 5 mg PO QAM [facility] Stop: 07/23/25 08:59 Last Admin: 06/29/25 08:26 Dose: 5 mg Fluticasone Propionate (Fluticasone Propionate Na Spr 16 Gm Btl) 2 sprays NA QAM [facility] Stop: 07/24/25 10:29 Last Admin: 06/29/25 08:26 Dose: 2 sprays Fluticasone/Vilanterol (Fluticasone/Vilanterol 200/25mcg 14 Puffs/Inhaler) 1 puffs INH DAILY [facility] Stop: 07/22/25 22:29 Last Admin: 06/29/25 08:26 Dose: 1 puffs Folic Acid (Folic Acid 1 Mg Tab) 1 mg PO QAM [facility] Stop: 07/23/25 08:59 Last Admin: 06/29/25 08:24 Dose: 1 mg Furosemide (Furosemide 40 Mg Tab) 40 mg PO BID17 [facility] Stop: 07/23/25 08:59 Last Admin: 06/29/25 08:24 Dose: 40 mg Gabapentin (Gabapentin 300 Mg Cap) 300 mg PO QID [facility] Stop: 07/22/25 20:59 Last Admin: 06/29/25 13:18 Dose: 300 mg Glucagon (Glucagon For Inj 1 Mg Vial) 1 mg SQ UD PRN; Protocol PRN Reason: Hypoglycemia Protocol Stop: 07/22/25 22:19 Glucose (Glucose 40% Gel 15 Gm Tube) 15 - 30 gm PO UD PRN; Protocol PRN Reason: Hypoglycemia Protocol Stop: 07/22/25 22:19 Glucose (Glucose 10 Tab/Tube) 4 - 8 tab PO UD PRN; Protocol PRN Reason: Hypoglycemia Protocol Stop: 07/22/25 22:19 Guaifenesin (Guaifenesin 600 Mg Tabcr) 600 mg PO Q12 [facility] Stop: 07/23/25 00:04 Last Admin: 06/29/25 08:24 Dose: 600 mg Meropenem 500 mg/ Syringe 10 mls @ 2 mls/min IV Q6H [facility]; Protocol Stop: 07/02/25 20:29 Last Admin: 06/29/25 13:37 Dose: 2 mls/min Promethazine HCl (Phenergan) 12.5 mg in 50.5 mls @ 202 mls/hr IV Q6H PRN PRN Reason: Nausea And Vomiting Stop: 07/22/25 20:49 Last Infusion: 06/29/25 08:03 Dose: Infused Insulin Aspart (Insulin Aspart Per Unit Charge) 0 units SC ACHS [facility] Stop: 07/22/25 22:19 Last Admin: 06/29/25 11:51 Dose: 10 units Insulin Glargine (Lantus Per Unit Charge) 40 units SQ HS [facility] [place] Stop: 07/24/25 20:59 Last Admin: 06/28/25 20:56 Dose: 40 units Lactic Acid (Ammonium Lactate 12% Lotion 225 Gm Btl) 1 gm EXT BID [facility] [place] Stop: 07/28/25 20:59 Last Admin: 06/29/25 08:25 Dose: 1 gm Metoprolol Succinate (Metoprolol Succ 25mg Ext Rel Tab) 25 mg PO BID [facility] [place] Stop: 07/22/25 20:59 Last Admin: 06/29/25 08:25 Dose: Not Given Miscellaneous (Remove Nicoderm Patch) 1 each N/A DAILY@2058 [facility] [place] Stop: 07/23/25 20:58 Last Admin: 06/28/25 20:24 Dose: 1 each Miscellaneous (Carbohydrates For Hypoglycemia ) 15 - 30 gm PO UD PRN PRN Reason: Hypoglycemia Protocol Stop: 07/22/25 22:19 Nicotine (Nicotine 21 Mg/24 Hr Tdsy) 1 patch TD HS [facility] [place] Stop: 07/22/25 21:39 Last Admin: 06/28/25 20:25 Dose: 1 patch Oxycodone HCl (Oxycodone Hcl Ir 5 Mg Tab (Immediate Release)) 10 mg PO Q8H PRN PRN Reason: Pain Stop: 07/06/25 20:46 Last Admin: 06/29/25 10:28 Dose: 10 mg Pantoprazole Sodium (Pantoprazole 40 Mg Tab) 40 mg PO BID [facility] Stop: 07/22/25 20:59 Last Admin: 06/29/25 08:25 Dose: 40 mg Polyethylene Glycol (Polyethylene (Miralax) 17 Gm Pack) 17 gm PO DAILY PRN PRN Reason: Constipation Stop: 07/23/25 19:58 Last Admin: 06/29/25 08:23 Dose: 17 gm Potassium Chloride (Potassium Chloride Crtab 20 Meq Tabcr) 20 meq PO BID [facility] Stop: 07/23/25 08:59 Last Admin: 06/29/25 08:24 Dose: 20 meq Sennosides (Senna 8.6 Mg Tab) 8.6 mg PO DAILY PRN PRN Reason: Constipation Stop: 07/22/25 20:46 Last Admin: 06/29/25 08:23 Dose: 8.6 mg Spironolactone (Spironolactone 25 Mg Tab) 25 mg PO DAILY [facility] [place] Stop: 07/24/25 08:59 Last Admin: 06/29/25 08:27 Dose: 25 mg Umeclidinium [place] (Umeclidinium [place] 62.5mcg/Blister 7 Puffs/Inhaler) 1 puffs INH DAILY [facility] [place] Stop: 07/23/25 08:59 Last Admin: 06/29/25 08:27 Dose: 1 puffs Warfarin Sodium (Warfarin Sod 2.5 Mg Tab) 2.5 mg PO Tu@1600 [facility] [place] Stop: 07/26/25 15:59 Last Admin: 06/26/25 16:08 Dose: 2.5 mg Warfarin Sodium (Warfarin Sod 5 Mg Tab) 5 mg PO SuMoWeThFrSa@1600 [facility] [place] [place] Stop: 07/23/25 15:59 Last Admin: 06/28/25 16:44 Dose: 5 mg
[2025-06-29] MEDS: ACETAMINOPHEN 1,000 MG/100 ML VIAL IV STA ×2 (13:16→20:47)
[2025-06-30 05:51] LABS: Hematocrit (blood only) 40.7 % (42.0-52.0); Hemoglobin 13.1 g/dl (14.0-18.0); Immature Granulocytes # (auto) 0.05 K/uL (0.01-0.20); Immature Granulocytes % (auto) 0.5 %; Mean Corpuscular Hemoglobin 27.9 pg (25.0-34.0); Mean Corpuscular Volume 86.8 fL (80.0-100.0); Platelet Count 218 K/uL (130-400); RDW Standard Deviation 51.8 fL (36.4-46.3); Red Blood Count 4.69 M/uL (4.70-6.10); White Blood Count 10.34 K/ul (4.8-10.8)
[2025-06-30 06:07] LABS: Anion Gap 3.0 (3-11); Blood Urea Nitrogen 21.0 mg/dl (6-23); Calcium 9.4 mg/dl (8.6-10.3); Carbon Dioxide 34.0 mmol/L (21-32); Chloride 99.0 mmol/L (98-107); Creatinine Clr Calc Pharmacy 172.8 ml/min; Glucose 258.0 mg/dl (70-99(Fasting)); Potassium 4.1 mmol/L (3.5-5.1); Sodium 136.0 mmol/L (136-145)
[2025-06-30 06:20] LABS: INR 1.8 (0.9-1.1); Prothrombin Time 18.4 Seconds (9.0-12.0)
--- NOTE | 2025-06-30 12:54 | Hospitalist Progress Note ---
Date of Service June 30, 2025 Assessment & Plan (1) Complicated UTI (urinary tract infection): Plan: 54 yo M w/ PMH of chronic diastolic heart failure (EF 55%, TTE 2023), CAD/STEMI, subdural hematoma/subarachnoid hemorrhage, hypertension, hyperlipidemia, COPD, recurrent PE on Coumadin, DM 2 insulin requiring, recurrent UTIs secondary to BPH/chronic urinary retention indwelling Lloyd catheter, urolithiasis, gastric pneumatosis, anxiety/mood/personality, chronic pain on buprenorphine, drug- seeking behavior as per records, hx MRSA/VRE, ongoing tobacco abuse. He comes in w/ few days history of not feeling well and having chills. Patient feeling weaker and thinks his partner might not be able to care for him at home anymore. IV ciprofloxacin administered at the ER. He is being managed for the following: Complicated UTI CAUTI hx recurrent UTIs secondary to BPH w chronic indwelling Lloyd catheter No overt sepsis for now Lloyd exchanged in the ED 06/22 Follow urine CS, Meropenem 06/22 (given microbiologic history). UCx contaminant, plan for 5 d Rx. dc atb rj. Denies any neurological symptoms in the drained urine seems to be normal in color Antibiotic course will be finished tomorrow Antibiotic course is done by today and he remains free from any urological symptoms Still on antibiotic and will continue for the next few days Denies any urinary symptoms and no other signs and symptoms of infection Constipation Complains of abdominal bloating with discomfort Receiving laxatives Will try glycerin suppository tomorrow and if no improvement will give Fleet enema Does not want to try any suppository today but wants to take additional dose of senna and MiraLAX If there is no bowel movement by tomorrow morning you will receive glycerin suppository and Fleet enema thereafter Discharge to a facility when approved He is already smoked and denies any abdominal complaints bowel has been moving Right hip pain Minimal swelling of the right hip around the greater trochanteric area noted Minimally tender with movement of the hip did not produce much pain Will apply local diclofenac sodium Further examination of the right lateral hip showed significant swelling over lateral aspect of right hip no fluctuation but mildly tender on palpation Will get a CT of the right to document the soft tissue swelling and try to find the nature of the swelling CT scan of the right did not show any significant abnormality, mild arthritis but no soft tissue swelling and/or bleeding or fluid accumulation Other chronic medical conditions: c/w or resume home meds as and when able. chronic diastolic heart failure (EF 55%, TTE 2023), patient euvolemic history CAD/STEMI as per records history subdural hematoma/subarachnoid hemorrhage as per records hypertension, stable hyperlipidemia on statin Rx COPD, chronic exertional SOB symptoms recurrent PE on Coumadin, INR INR 1.4, give additional coumadin 2 mg today. DM 2 insulin requiring, suboptimal control as of recent hemoglobin A1c of 8.8 last April 2025. basal bolus insulin, ISS BG goal 110-140, carb count coverage anxiety/mood/personality disorder as per records, at baseline chronic pain on buprenorphine/drug-seeking behavior as per records: Judicious narcotic use given drug-seeking behavior history, IV Tylenol only if patient strictly n.p.o. hx MRSA/VRE functional disability ongoing tobacco abuse: Nicotine patch PT OT eval, recs is rehab, given call for P2P, awaiting call back.Awaiting placement Social service re: placement DVT prophylaxis. c/w home coumadin Full code Text document was generated using [employer] voice recognition software. It may contain grammatical or spelling errors. Kindly contact undersigned for clarification of any documentation item in question. Admission and Anticipated Discharge Date Admission Date: June 22, 2025 Subjective 06/27/2025 The patient was seen and examined in medical floor He has been complaining of constipation and has not bowel movement for the last 3 or 4 days Minimal abdominal distention and discomfort but no pain and no nausea no vomiting Denies any other significant symptoms 06/28/2025 The patient was seen and examined in medical floor He has not had a bowel movement but passing gas Complains to pain in the right knee and right ankle and awaiting PT Denies any other significant symptoms except minimal wheezing 06/29/2025 The patient was seen and examined in medical floor He has been complaining of pain in the right hip during physical therapy and feels that his right hip is a little protruded outwardly He denies any other significant symptoms 06/30/2025 Patient was seen and examined in medical floor He complains today of swelling in the right lateral area of hip which is painful and russ at times He denies any other significant symptoms Review of Systems Review of Systems: All systems reviewed and unremarkable except as noted below Physical Exam Physical Exam: Lying in bed without any acute distress Constitutional: well developed, well nourished, + ill appearing and + obese Eyes: PERRL, conjunctivae normal, anicteric sclerae ENMT: external ear and nose normal, oropharynx normal Neck: trachea midline, no thyromegaly Respiratory: no respiratory distress Auscultation: lungs clear to auscultation bilaterally Cardiovascular: Rate/Rhythm: regular rate and regular rhythm; not tachycardic Heart Sounds: normal S1 and normal S2; no murmur Extremities: + edema (Trace edema bilaterally with chronic skin changes) Gastrointestinal (Abdomen): Inspection/Auscultation: + abdomen distended (Minimally distended but soft) and normal bowel sounds Percussion/Palpation: abdomen soft; abdomen nontender Neurologic: normal touch/pain/proprioception and moves all extremities; no focal motor deficits Lymphatic: no cervical or axillary lymphadenopathy Results & Data Results & Data Vital Signs (Past 12 Hours) Vital Signs Temp Pulse Resp BP Pulse Ox O2 Del Method O2 Flow Rate 06/30/25 09:30 Room Air 06/30/25 07:30 36.4 C L 63 16 137/70 99 Nasal Cannula 4 Laboratory Results Short CBC 06/30/25 Range/Units 05:26 WBC 10.34 (4.8-10.8) K/ul Hgb 13.1 L (14.0-18.0) g/dl Hct 40.7 L (42.0-52.0) % Plt Count 218 (130-400) K/uL BMP 06/30/25 05:26 Sodium 136 Potassium 4.1 Chloride 99 Carbon Dioxide 34 H BUN 21 Creatinine 0.81 Glucose 258 H Calcium 9.4 Medications Administered Current Inpatient Medications Acetaminophen (Acetaminophen 500 Mg Tab) 1,000 mg PO TID PRN PRN Reason: pain/fever Stop: 07/23/25 21:16 Albuterol (Albuterol Hfa 8 Gm Inhaler) 2 puffs INH Q4H PRN PRN Reason: Shortness Of Breath Or Wheezing Stop: 07/23/25 11:18 Albuterol (Albut/Ipratrop 3mg/0.5mg Neb 3 Ml Vial) 3 ml INH TID PRN; Protocol PRN Reason: Wheezing Stop: 07/24/25 09:57 Aspirin (Aspirin 81 Mg Ectab) 81 mg PO QAM EMPERATRIZ Stop: 07/24/25 08:59 Last Admin: 06/30/25 09:44 Dose: 81 mg Atorvastatin Calcium (Atorvastatin 40 Mg Tab) 80 mg PO PM EMPERATRIZ Stop: 07/22/25 20:59 Last Admin: 06/29/25 20:51 Dose: 80 mg Buprenorphine HCl (Buprenorphine Hcl 8 Mg Subl) 8 mg SL TID EMPERATRIZ Stop: 07/22/25 20:59 Last Admin: 06/30/25 09:43 Dose: 8 mg Cyclobenzaprine HCl (Cyclobenzaprine Hcl 10 Mg Tab) 10 mg PO BID PRN PRN Reason: Muscle Spasm Stop: 07/22/25 20:46 Last Admin: 06/30/25 09:50 Dose: 10 mg Dextrose (Dextrose 50% 50 Ml Syringe) 25 - 50 ml IV UD PRN; Protocol PRN Reason: Hypoglycemia Protocol Stop: 07/22/25 22:19 Diclofenac Sodium (Diclofenac Sod 1% Gel 100 Gm Tube) 2 gm EXT Q6H PRN; Protocol PRN Reason: right knee pain Stop: 07/26/25 15:14 Last Admin: 06/28/25 12:32 Dose: 2 gm Docusate Sodium (Docusate Sodium 100 Mg Cap) 100 mg PO BID EMPERATRIZ Stop: 07/22/25 20:59 Last Admin: 06/30/25 09:43 Dose: 100 mg Duloxetine HCl (Duloxetine Hcl 60 Mg Cap) 60 mg PO QAM [facility] Stop: 07/23/25 08:59 Last Admin: 06/30/25 09:43 Dose: 60 mg Famotidine (Famotidine 20 Mg Tab) 20 mg PO HS EMPERATRIZ Stop: 07/22/25 20:59 Last Admin: 06/29/25 20:52 Dose: 20 mg Ferrous Sulfate (Ferrous Sulfate 325 Mg Tab) 325 mg PO DAILY EMPERATRIZ Stop: 07/23/25 08:59 Last Admin: 06/30/25 09:44 Dose: 325 mg Finasteride (Finasteride 5 Mg Tab) 5 mg PO QAM [facility] Stop: 07/23/25 08:59 Last Admin: 06/30/25 09:43 Dose: 5 mg Fluticasone Propionate (Fluticasone Propionate Na Spr 16 Gm Btl) 2 sprays NA QAM [facility] Stop: 07/24/25 10:29 Last Admin: 06/30/25 09:48 Dose: 2 sprays Fluticasone/Vilanterol (Fluticasone/Vilanterol 200/25mcg 14 Puffs/Inhaler) 1 puffs INH DAILY EMPERATRIZ Stop: 07/22/25 22:29 Last Admin: 06/30/25 09:49 Dose: 1 puffs Folic Acid (Folic Acid 1 Mg Tab) 1 mg PO QAM EMPERATRIZ Stop: 07/23/25 08:59 Last Admin: 06/30/25 09:44 Dose: 1 mg Furosemide (Furosemide 40 Mg Tab) 40 mg PO BID17 EMPERATRIZ Stop: 07/23/25 08:59 Last Admin: 06/30/25 09:44 Dose: 40 mg Gabapentin (Gabapentin 300 Mg Cap) 300 mg PO QID EMPERATRIZ Stop: 07/22/25 20:59 Last Admin: 06/30/25 09:44 Dose: 300 mg Glucagon (Glucagon For Inj 1 Mg Vial) 1 mg SQ UD PRN; Protocol PRN Reason: Hypoglycemia Protocol Stop: 07/22/25 22:19 Glucose (Glucose 40% Gel 15 Gm Tube) 15 - 30 gm PO UD PRN; Protocol PRN Reason: Hypoglycemia Protocol Stop: 07/22/25 22:19 Glucose (Glucose 10 Tab/Tube) 4 - 8 tab PO UD PRN; Protocol PRN Reason: Hypoglycemia Protocol Stop: 07/22/25 22:19 Guaifenesin (Guaifenesin 600 Mg Tabcr) 600 mg PO Q12 EMPERATRIZ Stop: 07/23/25 00:04 Last Admin: 06/30/25 09:44 Dose: 600 mg Meropenem 500 mg/ Syringe 10 mls @ 2 mls/min IV Q6H EMPERATRIZ; Protocol Stop: 07/02/25 20:29 Last Admin: 06/30/25 09:43 Dose: 2 mls/min Promethazine HCl (Phenergan) 12.5 mg in 50.5 mls @ 202 mls/hr IV Q6H PRN PRN Reason: Nausea And Vomiting Stop: 07/22/25 20:49 Last Infusion: 06/30/25 10:46 Dose: Infused Insulin Aspart (Insulin Aspart Per Unit Charge) 0 units SC ACHS [facility] Stop: 07/22/25 22:19 Last Admin: 06/30/25 11:47 Dose: 11 units Insulin Glargine (Lantus Per Unit Charge) 40 units SQ HS [facility] Stop: 07/24/25 20:59 Last Admin: 06/29/25 21:16 Dose: 40 units Lactic Acid (Ammonium Lactate 12% Lotion 225 Gm Btl) 1 gm EXT BID EMPERATRIZ Stop: 07/28/25 20:59 Last Admin: 06/30/25 09:37 Dose: 1 gm Metoprolol Succinate (Metoprolol Succ 25mg Ext Rel Tab) 25 mg PO BID EMPERATRIZ Stop: 07/22/25 20:59 Last Admin: 06/30/25 09:44 Dose: 25 mg Miscellaneous (Remove Nicoderm Patch) 1 each N/A DAILY@2058 EMPERATRIZ Stop: 07/23/25 20:58 Last Admin: 06/29/25 20:56 Dose: 1 each Miscellaneous (Carbohydrates For Hypoglycemia ) 15 - 30 gm PO UD PRN PRN Reason: Hypoglycemia Protocol Stop: 07/22/25 22:19 Nicotine (Nicotine 21 Mg/24 Hr Tdsy) 1 patch TD HS EMPERATRIZ Stop: 07/22/25 21:39 Last Admin: 06/29/25 20:52 Dose: 1 patch Oxycodone HCl (Oxycodone Hcl Ir 5 Mg Tab (Immediate Release)) 10 mg PO Q8H PRN PRN Reason: Pain Stop: 07/06/25 20:46 Last Admin: 06/30/25 10:30 Dose: 10 mg Pantoprazole Sodium (Pantoprazole 40 Mg Tab) 40 mg PO BID EMPERATRIZ Stop: 07/22/25 20:59 Last Admin: 06/30/25 09:44 Dose: 40 mg Polyethylene Glycol (Polyethylene (Miralax) 17 Gm Pack) 17 gm PO DAILY PRN PRN Reason: Constipation Stop: 07/23/25 19:58 Last Admin: 06/30/25 09:43 Dose: 17 gm Potassium Chloride (Potassium Chloride Crtab 20 Meq Tabcr) 20 meq PO BID EMPERATRIZ Stop: 07/23/25 08:59 Last Admin: 06/30/25 09:43 Dose: 20 meq Sennosides (Senna 8.6 Mg Tab) 8.6 mg PO DAILY PRN PRN Reason: Constipation Stop: 07/22/25 20:46 Last Admin: 06/30/25 09:43 Dose: 8.6 mg Spironolactone (Spironolactone 25 Mg Tab) 25 mg PO DAILY EMPERATRIZ Stop: 07/24/25 08:59 Last Admin: 06/30/25 09:43 Dose: 25 mg Umeclidinium Carnegie (Umeclidinium Carnegie 62.5mcg/Blister 7 Puffs/Inhaler) 1 puffs INH DAILY [facility] Stop: 07/23/25 08:59 Last Admin: 06/30/25 10:30 Dose: 1 puffs Warfarin Sodium (Warfarin Sod 2.5 Mg Tab) 2.5 mg PO Tu@1600 [facility] Stop: 07/26/25 15:59 Last Admin: 06/26/25 16:08 Dose: 2.5 mg Warfarin Sodium (Warfarin Sod 5 Mg Tab) 5 mg PO SuMoWeThFrSa@1600 [facility] Stop: 07/23/25 15:59 Last Admin: 06/29/25 17:04 Dose: 5 mg
--- NOTE | 2025-06-30 13:49 | CT Scan Report ---
Technique: Axial computed tomography images were obtained of the right hip without intravenous contrast. Sagittal and coronal reconstructions were obtained Findings: No fracture is identified. No subluxation or dislocation is seen. There is mild right hip osteoarthritis. No focal osseous lesion is evident The visualized musculature appears unremarkable. No soft tissue mass or fluid collection is seen. No foreign body is evident The bladder is decompressed, containing a Lloyd catheter Impression: 1. No definite fracture 2. Mild right hip osteoarthritis Electronically signed by Leodan Cristobal 06-30-2025 13:48 PM
[2025-06-30] MEDS: ACETAMINOPHEN 1,000 MG/100 ML VIAL IV STA ×2 (14:27→21:35)
[2025-07-01 06:29] LABS: INR 2.1 (0.9-1.1); Prothrombin Time 21.0 Seconds (9.0-12.0)
[2025-07-01] MEDS: ACETAMINOPHEN 1,000 MG/100 ML VIAL IV STA ×2 (11:11→23:29)
--- NOTE | 2025-07-01 12:51 | Hospitalist Progress Note ---
Date of Service July 01, 2025 Assessment & Plan (1) Complicated UTI (urinary tract infection): Plan: 54 yo M w/ PMH of chronic diastolic heart failure (EF 55%, TTE 2023), CAD/STEMI, subdural hematoma/subarachnoid hemorrhage, hypertension, hyperlipidemia, COPD, recurrent PE on Coumadin, DM 2 insulin requiring, recurrent UTIs secondary to BPH/chronic urinary retention indwelling Lloyd catheter, urolithiasis, gastric pneumatosis, anxiety/mood/personality, chronic pain on buprenorphine, drug- seeking behavior as per records, hx MRSA/VRE, ongoing tobacco abuse. He comes in w/ few days history of not feeling well and having chills. Patient feeling weaker and thinks his partner might not be able to care for him at home anymore. IV ciprofloxacin administered at the ER. He is being managed for the following: Complicated UTI CAUTI hx recurrent UTIs secondary to BPH w chronic indwelling Lloyd catheter No overt sepsis for now Lloyd exchanged in the ED 06/22 Follow urine CS, Meropenem 06/22 (given microbiologic history). UCx contaminant, plan for 5 d Rx. dc atb rj. Denies any neurological symptoms in the drained urine seems to be normal in color Antibiotic course will be finished tomorrow Antibiotic course is done by today and he remains free from any urological symptoms Still on antibiotic and will continue for the next few days Denies any urinary symptoms and no other signs and symptoms of infection Remains stable without any signs and or symptoms of infection and will finish the course of meropenem tomorrow Awaiting placement Constipation Complains of abdominal bloating with discomfort Receiving laxatives Will try glycerin suppository tomorrow and if no improvement will give Fleet enema Does not want to try any suppository today but wants to take additional dose of senna and MiraLAX If there is no bowel movement by tomorrow morning you will receive glycerin suppository and Fleet enema thereafter Discharge to a facility when approved He is already smoked and denies any abdominal complaints bowel has been moving Bowel has been moving Right hip pain Minimal swelling of the right hip around the greater trochanteric area noted Minimally tender with movement of the hip did not produce much pain Will apply local diclofenac sodium Further examination of the right lateral hip showed significant swelling over lateral aspect of right hip no fluctuation but mildly tender on palpation Will get a CT of the right to document the soft tissue swelling and try to find the nature of the swelling CT scan of the right did did not show any mass or hematoma or any significant findings in right hip He will be given lidocaine patch locally to help the pain Other chronic medical conditions: c/w or resume home meds as and when able. chronic diastolic heart failure (EF 55%, TTE 2023), patient euvolemic history CAD/STEMI as per records history subdural hematoma/subarachnoid hemorrhage as per records hypertension, stable hyperlipidemia on statin Rx COPD, chronic exertional SOB symptoms recurrent PE on Coumadin, INR INR 1.4, give additional coumadin 2 mg today. DM 2 insulin requiring, suboptimal control as of recent hemoglobin A1c of 8.8 last April 2025. basal bolus insulin, ISS BG goal 110-140, carb count coverage anxiety/mood/personality disorder as per records, at baseline chronic pain on buprenorphine/drug-seeking behavior as per records: Judicious narcotic use given drug-seeking behavior history, IV Tylenol only if patient strictly n.p.o. hx MRSA/VRE functional disability ongoing tobacco abuse: Nicotine patch PT OT eval, recs is rehab, given call for P2P, awaiting call back.Awaiting placement Social service re: placement DVT prophylaxis. c/w home coumadin Full code Text document was generated using [employer] voice recognition software. It may contain grammatical or spelling errors. Kindly contact undersigned for clarification of any documentation item in question. Admission and Anticipated Discharge Date Admission Date: June 22, 2025 Subjective 06/27/2025 The patient was seen and examined in medical floor He has been complaining of constipation and has not bowel movement for the last 3 or 4 days Minimal abdominal distention and discomfort but no pain and no nausea no vomiting Denies any other significant symptoms 06/28/2025 The patient was seen and examined in medical floor He has not had a bowel movement but passing gas Complains to pain in the right knee and right ankle and awaiting PT Denies any other significant symptoms except minimal wheezing 06/29/2025 The patient was seen and examined in medical floor He has been complaining of pain in the right hip during physical therapy and feels that his right hip is a little protruded outwardly He denies any other significant symptoms 06/30/2025 Patient was seen and examined in medical floor He complains today of swelling in the right lateral area of hip which is painful and russ at times He denies any other significant symptoms 07/01/2025 The patient was seen and examined in medical floor He complains of pain and swelling of the right lateral Denies any other significant symptoms Review of Systems Review of Systems: All systems reviewed and unremarkable except as noted below Physical Exam Physical Exam: Lying in bed without any acute distress Constitutional: well developed, well nourished, + ill appearing and + obese Eyes: PERRL, conjunctivae normal, anicteric sclerae ENMT: external ear and nose normal, oropharynx normal Neck: trachea midline, no thyromegaly Respiratory: no respiratory distress Auscultation: lungs clear to auscultation bilaterally Cardiovascular: Rate/Rhythm: regular rate and regular rhythm; not tachycardic Heart Sounds: normal S1 and normal S2; no murmur Extremities: + edema (Trace edema bilaterally with chronic skin changes) Gastrointestinal (Abdomen): Inspection/Auscultation: + abdomen distended (Mi nimally distended but soft) and normal bowel sounds Percussion/Palpation: abdomen soft; abdomen nontender Neurologic: normal touch/pain/proprioception and moves all extremities; no focal motor deficits Lymphatic: no cervical or axillary lymphadenopathy Results & Data Results & Data Vital Signs (Past 12 Hours) Vital Signs Temp Pulse Resp BP Pulse Ox O2 Del Method 07/01/25 08:08 36.9 C 68 17 152/67 H 97 Room Air Medications Administered Current Inpatient Medications Acetaminophen (Acetaminophen 500 Mg Tab) 1,000 mg PO TID PRN PRN Reason: pain/fever Stop: 07/23/25 21:16 Albuterol (Albuterol Hfa 8 Gm Inhaler) 2 puffs INH Q4H PRN PRN Reason: Shortness Of Breath Or Wheezing Stop: 07/23/25 11:18 Albuterol (Albut/Ipratrop 3mg/0.5mg Neb 3 Ml Vial) 3 ml INH TID PRN; Protocol PRN Reason: Wheezing Stop: 07/24/25 09:57 Aspirin (Aspirin 81 Mg Ectab) 81 mg PO QAM [facility] Stop: 07/24/25 08:59 Last Admin: 07/01/25 08:08 Dose: 81 mg Atorvastatin Calcium (Atorvastatin 40 Mg Tab) 80 mg PO PM [facility] Stop: 07/22/25 20:59 Last Admin: 06/30/25 21:14 Dose: 80 mg Buprenorphine HCl (Buprenorphine Hcl 8 Mg Subl) 8 mg SL TID [facility] Stop: 07/22/25 20:59 Last Admin: 07/01/25 08:15 Dose: 8 mg Cyclobenzaprine HCl (Cyclobenzaprine Hcl 10 Mg Tab) 10 mg PO BID PRN PRN Reason: Muscle Spasm Stop: 07/22/25 20:46 Last Admin: 07/01/25 08:15 Dose: 10 mg Dextrose (Dextrose 50% 50 Ml Syringe) 25 - 50 ml IV UD PRN; Protocol PRN Reason: Hypoglycemia Protocol Stop: 07/22/25 22:19 Diclofenac Sodium (Diclofenac Sod 1% Gel 100 Gm Tube) 2 gm EXT Q6H PRN; Protocol PRN Reason: right knee pain Stop: 07/26/25 15:14 Last Admin: 07/01/25 08:07 Dose: 2 gm Docusate Sodium (Docusate Sodium 100 Mg Cap) 100 mg PO BID [facility] Stop: 07/22/25 20:59 Last Admin: 07/01/25 08:15 Dose: 100 mg Duloxetine HCl (Duloxetine Hcl 60 Mg Cap) 60 mg PO QAM [facility] Stop: 07/23/25 08:59 Last Admin: 07/01/25 08:07 Dose: 60 mg Famotidine (Famotidine 20 Mg Tab) 20 mg PO HS [facility] Stop: 07/22/25 20:59 Last Admin: 06/30/25 21:14 Dose: 20 mg Ferrous Sulfate (Ferrous Sulfate 325 Mg Tab) 325 mg PO DAILY [facility] Stop: 07/23/25 08:59 Last Admin: 07/01/25 08:07 Dose: 325 mg Finasteride (Finasteride 5 Mg Tab) 5 mg PO QAM [facility] Stop: 07/23/25 08:59 Last Admin: 07/01/25 08:11 Dose: 5 mg Fluticasone Propionate (Fluticasone Propionate Na Spr 16 Gm Btl) 2 sprays NA QAM [facility] Stop: 07/24/25 10:29 Last Admin: 07/01/25 08:10 Dose: 2 sprays Fluticasone/Vilanterol (Fluticasone/Vilanterol 200/25mcg 14 Puffs/Inhaler) 1 puffs INH DAILY [facility] Stop: 07/22/25 22:29 Last Admin: 07/01/25 08:06 Dose: 1 puffs Folic Acid (Folic Acid 1 Mg Tab) 1 mg PO QAM [facility] Stop: 07/23/25 08:59 Last Admin: 07/01/25 08:08 Dose: 1 mg Furosemide (Furosemide 40 Mg Tab) 40 mg PO BID17 [facility] Stop: 07/23/25 08:59 Last Admin: 07/01/25 08:08 Dose: 40 mg Gabapentin (Gabapentin 300 Mg Cap) 300 mg PO QID [facility] Stop: 07/22/25 20:59 Last Admin: 07/01/25 12:01 Dose: 300 mg Glucagon (Glucagon For Inj 1 Mg Vial) 1 mg SQ UD PRN; Protocol PRN Reason: Hypoglycemia Protocol Stop: 07/22/25 22:19 Glucose (Glucose 40% Gel 15 Gm Tube) 15 - 30 gm PO UD PRN; Protocol PRN Reason: Hypoglycemia Protocol Stop: 07/22/25 22:19 Glucose (Glucose 10 Tab/Tube) 4 - 8 tab PO UD PRN; Protocol PRN Reason: Hypoglycemia Protocol Stop: 07/22/25 22:19 Guaifenesin (Guaifenesin 600 Mg Tabcr) 600 mg PO Q12 [facility] Stop: 07/23/25 00:04 Last Admin: 07/01/25 08:08 Dose: 600 mg Meropenem 500 mg/ Syringe 10 mls @ 2 mls/min IV Q6H [facility]; Protocol Stop: 07/02/25 20:29 Last Admin: 07/01/25 08:16 Dose: 2 mls/min Promethazine HCl (Phenergan) 12.5 mg in 50.5 mls @ 202 mls/hr IV Q6H PRN PRN Reason: Nausea And Vomiting Stop: 07/22/25 20:49 Last Infusion: 07/01/25 11:06 Dose: Infused Insulin Aspart (Insulin Aspart Per Unit Charge) 0 units SC ACHS [facility] Stop: 07/22/25 22:19 Last Admin: 07/01/25 12:03 Dose: 10 units Insulin Glargine (Lantus Per Unit Charge) 40 units SQ HS [facility] Stop: 07/24/25 20:59 Last Admin: 06/30/25 21:37 Dose: 40 units Lactic Acid (Ammonium Lactate 12% Lotion 225 Gm Btl) 1 gm EXT BID [facility] Stop: 07/28/25 20:59 Last Admin: 07/01/25 08:07 Dose: 1 gm Lidocaine (Lidocaine 5% 1 Patch) 1 patch TD QAM [facility] Stop: 07/31/25 12:59 Metoprolol Succinate (Metoprolol Succ 25mg Ext Rel Tab) 25 mg PO BID [facility] Stop: 07/22/25 20:59 Last Admin: 07/01/25 08:08 Dose: 25 mg Miscellaneous (Remove Nicoderm Patch) 1 each N/A DAILY@2058 [facility] Stop: 07/23/25 20:58 Last Admin: 06/30/25 21:17 Dose: 1 each Miscellaneous (Carbohydrates For Hypoglycemia ) 15 - 30 gm PO UD PRN PRN Reason: Hypoglycemia Protocol Stop: 07/22/25 22:19 Miscellaneous (Remove Lidoderm Patch) 1 each N/A DAILY@2099 [facility] Stop: 07/31/25 20:59 Nicotine (Nicotine 21 Mg/24 Hr Tdsy) 1 patch TD HS [facility] Stop: 07/22/25 21:39 Last Admin: 06/30/25 21:17 Dose: 1 patch Oxycodone HCl (Oxycodone Hcl Ir 5 Mg Tab (Immediate Release)) 10 mg PO Q8H PRN PRN Reason: Pain Stop: 07/06/25 20:46 Last Admin: 07/01/25 10:51 Dose: 10 mg Pantoprazole Sodium (Pantoprazole 40 Mg Tab) 40 mg PO BID [facility] Stop: 07/22/25 20:59 Last Admin: 07/01/25 08:08 Dose: 40 mg Polyethylene Glycol (Polyethylene (Miralax) 17 Gm Pack) 17 gm PO DAILY PRN PRN Reason: Constipation Stop: 07/23/25 19:58 Last Admin: 06/30/25 09:43 Dose: 17 gm Potassium Chloride (Potassium Chloride Crtab 20 Meq Tabcr) 20 meq PO BID [facility] Stop: 07/23/25 08:59 Last Admin: 07/01/25 08:15 Dose: 20 meq Sennosides (Senna 8.6 Mg Tab) 8.6 mg PO DAILY PRN PRN Reason: Constipation Stop: 07/22/25 20:46 Last Admin: 06/30/25 09:43 Dose: 8.6 mg Spironolactone (Spironolactone 25 Mg Tab) 25 mg PO DAILY [facility] Stop: 07/24/25 08:59 Last Admin: 07/01/25 08:10 Dose: 25 mg Umeclidinium Callaway (Umeclidinium Callaway 62.5mcg/Blister 7 Puffs/Inhaler) 1 puffs INH DAILY [facility] Stop: 07/23/25 08:59 Last Admin: 07/01/25 08:06 Dose: 1 puffs Warfarin Sodium (Warfarin Sod 2.5 Mg Tab) 2.5 mg PO Tu@1600 [facility] Stop: 07/26/25 15:59 Last Admin: 06/26/25 16:08 Dose: 2.5 mg Warfarin Sodium (Warfarin Sod 5 Mg Tab) 5 mg PO [id number]@1600 [facility] Stop: 07/23/25 15:59 Last Admin: 06/30/25 17:12 Dose: 5 mg
[2025-07-01] MEDS: LIDOCAINE 5% 1 PATCH TD SCH (16:38)
[2025-07-01] MEDS: REMOVE LIDODERM PATCH SCH (21:38)
[2025-07-02 06:01] LABS: Hematocrit (blood only) 39.2 % (42.0-52.0); Hemoglobin 12.2 g/dl (14.0-18.0); Immature Granulocytes # (auto) 0.06 K/uL (0.01-0.20); Immature Granulocytes % (auto) 0.5 %; Mean Corpuscular Hemoglobin 27.1 pg (25.0-34.0); Mean Corpuscular Volume 86.9 fL (80.0-100.0); Platelet Count 216 K/uL (130-400); RDW Standard Deviation 52.2 fL (36.4-46.3); Red Blood Count 4.51 M/uL (4.70-6.10); White Blood Count 11.66 K/ul (4.8-10.8)
[2025-07-02 06:21] LABS: Anion Gap 4.0 (3-11); Blood Urea Nitrogen 22.0 mg/dl (6-23); Calcium 9.3 mg/dl (8.6-10.3); Carbon Dioxide 33.0 mmol/L (21-32); Chloride 100.0 mmol/L (98-107); Creatinine Clr Calc Pharmacy 150.5 ml/min; Glucose 243.0 mg/dl (70-99(Fasting)); Potassium 4.1 mmol/L (3.5-5.1); Sodium 137.0 mmol/L (136-145)
[2025-07-02 06:33] LABS: INR 2.2 (0.9-1.1); Prothrombin Time 22.3 Seconds (9.0-12.0)
[2025-07-02] MEDS: ACETAMINOPHEN 1,000 MG/100 ML VIAL IV STA ×2 (13:52→21:55)
--- NOTE | 2025-07-02 15:25 | Hospitalist Progress Note ---
Date of Service July 02, 2025 Assessment & Plan (1) Complicated UTI (urinary tract infection): Plan: 54 yo M w/ PMH of chronic diastolic heart failure (EF 55%, TTE 2023), CAD/STEMI, subdural hematoma/subarachnoid hemorrhage, hypertension, hyperlipidemia, COPD, recurrent PE on Coumadin, DM 2 insulin requiring, recurrent UTIs secondary to BPH/chronic urinary retention indwelling Lloyd catheter, urolithiasis, gastric pneumatosis, anxiety/mood/personality, chronic pain on buprenorphine, drug- seeking behavior as per records, hx MRSA/VRE, ongoing tobacco abuse. He comes in w/ few days history of not feeling well and having chills. Patient feeling weaker and thinks his partner might not be able to care for him at home anymore. IV ciprofloxacin administered at the ER. He is being managed for the following: Complicated UTI CAUTI hx recurrent UTIs secondary to BPH w chronic indwelling Lloyd catheter No overt sepsis for now Lloyd exchanged in the ED 06/22 Follow urine CS, Meropenem 06/22 (given microbiologic history). UCx contaminant, plan for 5 d Rx. dc atb rj. Denies any neurological symptoms in the drained urine seems to be normal in color Antibiotic course will be finished tomorrow Antibiotic course is done by today and he remains free from any urological symptoms Still on antibiotic and will continue for the next few days Denies any urinary symptoms and no other signs and symptoms of infection Remains stable without any signs and or symptoms of infection and will finish the course of meropenem tomorrow Antibiotic course is finished and he remains asymptomatic Awaiting placementso far no acceptance yet Complaint chest pain with Radiation to left upper extremity Troponin remains negative and awaiting EKG No recurrence of the pain Constipation Complains of abdominal bloating with discomfort Receiving laxatives Will try glycerin suppository tomorrow and if no improvement will give Fleet enema Does not want to try any suppository today but wants to take additional dose of senna and MiraLAX If there is no bowel movement by tomorrow morning you will receive glycerin suppository and Fleet enema thereafter Discharge to a facility when approved He is already smoked and denies any abdominal complaints bowel has been moving Bowel has been moving Right hip pain Minimal swelling of the right hip around the greater trochanteric area noted Minimally tender with movement of the hip did not produce much pain Will apply local diclofenac sodium Further examination of the right lateral hip showed significant swelling over lateral aspect of right hip no fluctuation but mildly tender on palpation Will get a CT of the right to document the soft tissue swelling and try to find the nature of the swelling CT scan of the right did did not show any mass or hematoma or any significant findings in right hip He will be given lidocaine patch locally to help the pain Has been getting intravenous Tylenol occasionally for pain control Will need to continue PT and OT in the hospital as he has been not been accepted to go to SNF to continue rehab May need to go home with home PT on improvement Other chronic medical conditions: c/w or resume home meds as and when able. chronic diastolic heart failure (EF 55%, TTE 2023), patient euvolemic history CAD/STEMI as per records history subdural hematoma/subarachnoid hemorrhage as per records hypertension, stable hyperlipidemia on statin Rx COPD, chronic exertional SOB symptoms recurrent PE on Coumadin, INR INR 1.4, give additional coumadin 2 mg today. DM 2 insulin requiring, suboptimal control as of recent hemoglobin A1c of 8.8 last April 2025. basal bolus insulin, ISS BG goal 110-140, carb count coverage anxiety/mood/personality disorder as per records, at baseline chronic pain on buprenorphine/drug-seeking behavior as per records: Judicious narcotic use given drug-seeking behavior history, IV Tylenol only if patient strictly n.p.o. hx MRSA/VRE functional disability ongoing tobacco abuse: Nicotine patch PT OT eval, recs is rehab, given call for P2P, awaiting call back.Awaiting placement Social service re: placement DVT prophylaxis. c/w home coumadin Full code Text document was generated using [employer] voice recognition software. It may contain grammatical or spelling errors. Kindly contact undersigned for clarification of any documentation item in que luison. Admission and Anticipated Discharge Date Admission Date: June 22, 2025 Subjective 06/27/2025 The patient was seen and examined in medical floor He has been complaining of constipation and has not bowel movement for the last 3 or 4 days Minimal abdominal distention and discomfort but no pain and no nausea no vomiting Denies any other significant symptoms 06/28/2025 The patient was seen and examined in medical floor He has not had a bowel movement but passing gas Complains to pain in the right knee and right ankle and awaiting PT Denies any other significant symptoms except minimal wheezing 06/29/2025 The patient was seen and examined in medical floor He has been complaining of pain in the right hip during physical therapy and feels that his right hip is a little protruded outwardly He denies any other significant symptoms 06/30/2025 Patient was seen and examined in medical floor He complains today of swelling in the right lateral area of hip which is painful and russ at times He denies any other significant symptoms 07/01/2025 The patient was seen and examined in medical floor He complains of pain and swelling of the right lateral Denies any other significant symptoms 07/02/2025 The patient was seen and examined in medical floor He complained of some chest pain and pain in the left upper extremity without any shortness of breath or sweating His pain in the right hip and also right knee has been persisting Review of Systems Review of Systems: All systems reviewed and unremarkable except as noted below Physical Exam Physical Exam: Lying in bed without any acute distress Constitutional: well developed, well nourished, + ill appearing and + obese Eyes: PERRL, conjunctivae normal, anicteric sclerae ENMT: external ear and nose normal, oropharynx normal Neck: trachea midline, no thyromegaly Respiratory: no respiratory distress Auscultation: lungs clear to auscultation bilaterally Cardiovascular: Rate/Rhythm: regular rate and regular rhythm; not tachycardic Heart Sounds: normal S1 and normal S2; no murmur Extremities: + edema (Trace edema bilaterally with chronic skin changes) Gastrointestinal (Abdomen): Inspection/Auscultation: + abdomen distended (Minimally distended but soft) and normal bowel sounds Percussion/Palpation: abdomen soft; abdomen nontender Neurologic: normal touch/pain/proprioception and moves all extremities; no focal motor deficits Lymphatic: no cervical or axillary lymphadenopathy Results & Data Results & Data Vital Signs (Past 12 Hours) Vital Signs Temp Pulse Resp BP Pulse Ox O2 Del Method O2 Flow Rate 07/02/25 07:42 36.5 C 72 18 145/74 H 95 Nasal Cannula 3 07/02/25 07:35 Room Air Laboratory Results Short CBC 07/02/25 Range/Units 05:34 WBC 11.66 H (4.8-10.8) K/ul Hgb 12.2 L (14.0-18.0) g/dl Hct 39.2 L (42.0-52.0) % Plt Count 216 (130-400) K/uL BMP 07/02/25 05:34 Sodium 137 Potassium 4.1 Chloride 100 Carbon Dioxide 33 H BUN 22 Creatinine 0.93 Glucose 243 H Calcium 9.3 Medications Administered Current Inpatient Medications Acetaminophen (Acetaminophen 500 Mg Tab) 1,000 mg PO TID PRN PRN Reason: pain/fever Stop: 07/23/25 21:16 Albuterol (Albuterol Hfa 8 Gm Inhaler) 2 puffs INH Q4H PRN PRN Reason: Shortness Of Breath Or Wheezing Stop: 07/23/25 11:18 Albuterol (Albut/Ipratrop 3mg/0.5mg Neb 3 Ml Vial) 3 ml INH TID PRN; Protocol PRN Reason: Wheezing Stop: 07/24/25 09:57 Aspirin (Aspirin 81 Mg Ectab) [facility] [place] Stop: 07/24/25 08:59 Last Admin: 07/02/25 07:41 Dose: 81 mg Atorvastatin Calcium (Atorvastatin 40 Mg Tab) 80 mg PO PM [facility] Stop: 07/22/25 20:59 Last Admin: 07/01/25 21:34 Dose: 80 mg Buprenorphine HCl (Buprenorphine Hcl 8 Mg Subl) 8 mg SL TID [facility] Stop: 07/22/25 20:59 Last Admin: 07/02/25 13:51 Dose: 8 mg Cyclobenzaprine HCl (Cyclobenzaprine Hcl 10 Mg Tab) 10 mg PO BID PRN PRN Reason: Muscle Spasm Stop: 07/22/25 20:46 Last Admin: 07/01/25 23:14 Dose: 10 mg Dextrose (Dextrose 50% 50 Ml Syringe) 25 - 50 ml IV UD PRN; Protocol PRN Reason: Hypoglycemia Protocol Stop: 07/22/25 22:19 Diclofenac Sodium (Diclofenac Sod 1% Gel 100 Gm Tube) 2 gm EXT Q6H PRN; Protocol PRN Reason: right knee pain Stop: 07/26/25 15:14 Last Admin: 07/01/25 08:07 Dose: 2 gm Docusate Sodium (Docusate Sodium 100 Mg Cap) 100 mg PO BID [facility] Stop: 07/22/25 20:59 Last Admin: 07/02/25 07:49 Dose: 100 mg Duloxetine HCl (Duloxetine Hcl 60 Mg Cap) 60 mg PO QAM [facility] Stop: 07/23/25 08:59 Last Admin: 07/02/25 07:42 Dose: 60 mg Famotidine (Famotidine 20 Mg Tab) 20 mg PO HS [facility] Stop: 07/22/25 20:59 Last Admin: 07/02/25 07:49 Dose: 20 mg Ferrous Sulfate (Ferrous Sulfate 325 Mg Tab) 325 mg PO DAILY [facility] Stop: 07/23/25 08:59 Last Admin: 07/02/25 07:41 Dose: 325 mg Finasteride (Finasteride 5 Mg Tab) 5 mg PO QAM [facility] Stop: 07/23/25 08:59 Last Admin: 07/02/25 07:42 Dose: 5 mg Fluticasone Propionate (Fluticasone Propionate Na Spr 16 Gm Btl) 2 sprays NA QAM [facility] Stop: 07/24/25 10:29 Last Admin: 07/02/25 07:42 Dose: 2 sprays Fluticasone/Vilanterol (Fluticasone/Vilanterol 200/25mcg 14 Puffs/Inhaler) 1 puffs INH DAILY [facility] Stop: 07/22/25 22:29 Last Admin: 07/02/25 09:14 Dose: 1 puffs Folic Acid (Folic Acid 1 Mg Tab) 1 mg PO QAM [facility] Stop: 07/23/25 08:59 Last Admin: 07/02/25 07:41 Dose: 1 mg Furosemide (Furosemide 40 Mg Tab) 40 mg PO BID17 [facility] Stop: 07/23/25 08:59 Last Admin: 07/02/25 07:41 Dose: 40 mg Gabapentin (Gabapentin 300 Mg Cap) 300 mg PO QID [facility] Stop: 07/22/25 20:59 Last Admin: 07/02/25 11:41 Dose: 300 mg Glucagon (Glucagon For Inj 1 Mg Vial) 1 mg SQ UD PRN; Protocol PRN Reason: Hypoglycemia Protocol Stop: 07/22/25 22:19 Glucose (Glucose 40% Gel 15 Gm Tube) 15 - 30 gm PO UD PRN; Protocol PRN Reason: Hypoglycemia Protocol Stop: 07/22/25 22:19 Glucose (Glucose 10 Tab/Tube) 4 - 8 tab PO UD PRN; Protocol PRN Reason: Hypoglycemia Protocol Stop: 07/22/25 22:19 Guaifenesin (Guaifenesin 600 Mg Tabcr) 600 mg PO Q12 [facility] Stop: 07/23/25 00:04 Last Admin: 07/02/25 07:40 Dose: 600 mg Meropenem 500 mg/ Syringe 10 mls @ 2 mls/min IV Q6H [facility]; Protocol Stop: 07/02/25 20:29 Last Admin: 07/02/25 13:52 Dose: 2 mls/min Promethazine HCl (Phenergan) 12.5 mg in 50.5 mls @ 202 mls/hr IV Q6H PRN PRN Reason: Nausea And Vomiting Stop: 07/22/25 20:49 Last Infusion: 07/02/25 09:45 Dose: Infused Insulin Aspart (Insulin Aspart Per Unit Charge) 0 units SC ACHS [facility] Stop: 07/22/25 22:19 Last Admin: 07/02/25 12:34 Dose: 11 units Insulin Glargine (Lantus Per Unit Charge) 40 units SQ HS [facility] Stop: 07/24/25 20:59 Last Admin: 07/01/25 21:37 Dose: 40 units Lactic Acid (Ammonium Lactate 12% Lotion 225 Gm Btl) 1 gm EXT BID [facility] Stop: 07/28/25 20:59 Last Admin: 07/02/25 09:14 Dose: 1 gm Lidocaine (Lidocaine 5% 1 Patch) 1 patch TD QAM [facility] Stop: 07/31/25 12:59 Last Admin: 07/02/25 07:43 Dose: 1 patch Metoprolol Succinate (Metoprolol Succ 25mg Ext Rel Tab) 25 mg PO BID [facility] Stop: 07/22/25 20:59 Last Admin: 07/02/25 07:41 Dose: 25 mg Miscellaneous (Remove Nicoderm Patch) 1 each N/A DAILY@2058 [facility] Stop: 07/23/25 20:58 Last Admin: 07/01/25 21:33 Dose: 1 each Miscellaneous (Carbohydrates For Hypoglycemia ) 15 - 30 gm PO UD PRN PRN Reason: Hypoglycemia Protocol Stop: 07/22/25 22:19 Miscellaneous (Remove Lidoderm Patch) 1 each N/A DAILY@2100 [facility] Stop: 07/31/25 20:59 Last Admin: 07/01/25 21:38 Dose: 1 each Nicotine (Nicotine 21 Mg/24 Hr Tdsy) 1 patch TD HS [facility] Stop: 07/22/25 21:39 Last Admin: 07/01/25 21:38 Dose: 1 patch Oxycodone HCl (Oxycodone Hcl Ir 5 Mg Tab (Immediate Release)) 10 mg PO Q8H PRN PRN Reason: Pain Stop: 07/06/25 20:46 Last Admin: 07/02/25 11:40 Dose: 10 mg Pantoprazole Sodium (Pantoprazole 40 Mg Tab) 40 mg PO BID [facility] Stop: 07/22/25 20:59 Last Admin: 07/02/25 09:14 Dose: 40 mg Polyethylene Glycol (Polyethylene (Miralax) 17 Gm Pack) 17 gm PO DAILY PRN PRN Reason: Constipation Stop: 07/23/25 19:58 Last Admin: 06/30/25 09:43 Dose: 17 gm Potassium Chloride (Potassium Chloride Crtab 20 Meq Tabcr) 20 meq PO BID [facility] Stop: 07/23/25 08:59 Last Admin: 07/02/25 07:49 Dose: 20 meq Sennosides (Senna 8.6 Mg Tab) 8.6 mg PO DAILY PRN PRN Reason: Constipation Stop: 07/22/25 20:46 Last Admin: 07/02/25 07:49 Dose: 8.6 mg Spironolactone (Spironolactone 25 Mg Tab) 25 mg PO DAILY [facility] Stop: 07/24/25 08:59 Last Admin: 07/02/25 07:42 Dose: 25 mg Umeclidinium [place] (Umeclidinium [place] 62.5mcg/Blister 7 Puffs/Inhaler) 1 puffs INH DAILY [facility] Stop: 07/23/25 08:59 Last Admin: 07/02/25 07:50 Dose: 1 puffs Warfarin Sodium (Warfarin Sod 2.5 Mg Tab) 2.5 mg PO Tu@1600 [facility] Stop: 07/26/25 15:59 Last Admin: 06/26/25 16:08 Dose: 2.5 mg Warfarin Sodium (Warfarin Sod 5 Mg Tab) 5 mg PO SuMoWeThFrSa@1600 [facility] Stop: 07/23/25 15:59 Last Admin: 07/01/25 16:39 Dose: 5 mg
[2025-07-03] MEDS: UMECLIDINIUM BROMIDE 62.5MCG/BLISTER 7 PUFFS/INHALER INH SCH (11:25)
--- NOTE | 2025-07-03 13:22 | Hospitalist Progress Note ---
Date of Service July 03, 2025 Assessment & Plan (1) Complicated UTI (urinary tract infection): Plan: 54 yo M w/ PMH of chronic diastolic heart failure (EF 55%, TTE 2023), CAD/STEMI, subdural hematoma/subarachnoid hemorrhage, hypertension, hyperlipidemia, COPD, recurrent PE on Coumadin, DM 2 insulin requiring, recurrent UTIs secondary to BPH/chronic urinary retention indwelling Lloyd catheter, urolithiasis, gastric pneumatosis, anxiety/mood/personality, chronic pain on buprenorphine, drug- seeking behavior as per records, hx MRSA/VRE, ongoing tobacco abuse. He comes in w/ few days history of not feeling well and having chills. Patient feeling weaker and thinks his partner might not be able to care for him at home anymore. IV ciprofloxacin administered at the ER. He is being managed for the following: Complicated UTI CAUTI hx recurrent UTIs secondary to BPH w chronic indwelling Lloyd catheter No overt sepsis for now Lloyd exchanged in the ED 06/22 Follow urine CS, Meropenem 06/22 (given microbiologic history). UCx contaminant, plan for 5 d Rx. dc atb rj. Denies any neurological symptoms in the drained urine seems to be normal in color Antibiotic course will be finished tomorrow Antibiotic course is done by today and he remains free from any urological symptoms Still on antibiotic and will continue for the next few days Denies any urinary symptoms and no other signs and symptoms of infection Remains stable without any signs and or symptoms of infection and will finish the course of meropenem tomorrow Antibiotic course is finished and he remains asymptomatic He has been declined from a number of SNF He is thinking of continuing physical therapy in the hospital and likely discharge home in 2 to 3 days His symptoms remained stable on current medications Complaint chest pain with Radiation to left upper extremity Troponin remains negative and awaiting EKG No recurrence of the pain Does not have any more chest pain and/or cardiac issues Constipation Complains of abdominal bloating with discomfort Receiving laxatives Will try glycerin suppository tomorrow and if no improvement will give Fleet enema Does not want to try any suppository today but wants to take additional dose of senna and MiraLAX If there is no bowel movement by tomorrow morning you will receive glycerin suppository and Fleet enema thereafter Discharge to a facility when approved He is already smoked and denies any abdominal complaints bowel has been moving Bowel has been moving Right hip pain Minimal swelling of the right hip around the greater trochanteric area noted Minimally tender with movement of the hip did not produce much pain Will apply local diclofenac sodium Further examination of the right lateral hip showed significant swelling over lateral aspect of right hip no fluctuation but mildly tender on palpation Will get a CT of the right to document the soft tissue swelling and try to find the nature of the swelling CT scan of the right did did not show any mass or hematoma or any significant findings in right hip He will be given lidocaine patch locally to help the pain Has been getting intravenous Tylenol occasionally for pain control Will need to continue PT and OT in the hospital as he has been not been accepted to go to SNF to continue rehab May need to go home with home PT on improvement Continue with PT and OT and possible discharge in a day or 2 and he is agreeable with the plan Other chronic medical conditions: c/w or resume home meds as and when able. chronic diastolic heart failure (EF 55%, TTE 2023), patient euvolemic history CAD/STEMI as per records history subdural hematoma/subarachnoid hemorrhage as per records hypertension, stable hyperlipidemia on statin Rx COPD, chronic exertional SOB symptoms recurrent PE on Coumadin, INR INR 1.4, give additional coumadin 2 mg today. DM 2 insulin requiring, suboptimal control as of recent hemoglobin A1c of 8.8 last April 2025. basal bolus insulin, ISS BG goal 110-140, carb count coverage anxiety/mood/personality disorder as per records, at baseline chronic pain on buprenorphine/drug-seeking behavior as per records: Judicious narcotic use given drug-seeking behavior history, IV Tylenol only if patient strictly n.p.o. hx MRSA/VRE functional disability ongoing tobacco abuse: Nicotine patch PT OT eval, recs is rehab, given call for P2P, awaiting call back.Awaiting placement Social service re: placement DVT prophylaxis. c/w home coumadin Full code Text document was generated using [employer] voice recognition software. It may contain grammatical or spelling errors. Kindly contact undersigned for clarification of any documentation item in question. Admission and Anticipated Discharge Date Admission Date: June 22, 2025 Subjective 06/27/2025 The patient was seen and examined in medical floor He has been complaining of constipation and has not bowel movement for the last 3 or 4 days Minimal abdominal distention and discomfort but no pain and no nausea no vomiting Denies any other significant symptoms 06/28/2025 The patient was seen and examined in medical floor He has not had a bowel movement but passing gas Complains to pain in the right knee and right ankle and awaiting PT Denies any other significant symptoms except minimal wheezing 06/29/2025 The patient was seen and examined in medical floor He has been complaining of pain in the right hip during physical therapy and feels that his right hip is a little protruded outwardly He denies any other significant symptoms 06/30/2025 Patient was seen and examined in medical floor He complains today of swelling in the right lateral area of hip which is painful and russ at times He denies any other significant symptoms 07/01/2025 The patient was seen and examined in medical floor He complains of pain and swelling of the right lateral Denies any other significant symptoms 07/02/2025 The patient was seen and examined in medical floor He complained of some chest pain and pain in the left upper extremity without any shortness of breath or sweating His pain in the right hip and also right knee has been persisting 07/03/2025 The patient was seen and examined in medical floor He has been complaining of epigastric discomfort and awaiting for Phenergan Still has the pain in the right knee and right hip joint Expecting physical therapy to be continued for the next day or 2 and plan to go home on or Wednesday Review of Systems Review of Systems: All systems reviewed and unremarkable except as noted below Physical Exam Physical Exam: Lying in bed without any acute distress Constitutional: well developed, well nourished, + ill appearing and + obese Eyes: PERRL, conjunctivae normal, anicteric sclerae ENMT: external ear and nose normal, oropharynx normal Neck: trachea midline, no thyromegaly Respiratory: no respiratory distress Auscultation: lungs clear to auscultation bilaterally Cardiovascular: Rate/Rhythm: regular rate and regular rhythm; not tachycardic Heart Sounds: normal S1 and normal S2; no murmur Extremities: + edema (Trace edema bilaterally with chronic skin changes) Gastrointestinal (Abdomen): Inspection/Auscultation: + abdomen distended (Minimally distended but soft) and normal bowel sounds Percussion/Palpation: abdomen soft; abdomen nontender Neurologic: normal touch/pain/proprioception and moves all extremities; no focal motor deficits Lymphatic: no cervical or axillary lymphadenopathy Results & Data Results & Data Vital Signs (Past 12 Hours) Vital Signs Temp Pulse Resp BP Pulse Ox O2 Del Method O2 Flow Rate 07/03/25 07:40 36.5 C 64 16 142/79 H 99 Nasal Cannula 4 07/03/25 07:30 Nasal Cannula 2 Medications Administered Current Inpatient Medications Acetaminophen (Acetaminophen 500 Mg Tab) 1,000 mg PO TID PRN PRN Reason: pain/fever Stop: 07/23/25 21:16 Albuterol (Albuterol Hfa 8 Gm Inhaler) 2 puffs INH Q4H PRN PRN Reason: Shortness Of Breath Or Wheezing Stop: 07/23/25 11:18 Albuterol (Albut/Ipratrop 3mg/0.5mg Neb 3 Ml Vial) 3 ml INH TID PRN; Protocol PRN Reason: Wheezing Stop: 07/24/25 09:57 Aspirin (Aspirin 81 Mg Ectab) 81 mg PO QAM EMPERATRIZ Stop: 07/24/25 08:59 Last Admin: 07/03/25 09:03 Dose: 81 mg Atorvastatin Calcium (Atorvastatin 40 Mg Tab) 80 mg PO PM EMPERATRIZ Stop: 07/22/25 20:59 Last Admin: 07/02/25 21:58 Dose: 80 mg Buprenorphine HCl (Buprenorphine Hcl 8 Mg Subl) 8 mg SL TID EMPERATRIZ Stop: 07/22/25 20:59 Last Admin: 07/03/25 13:22 Dose: 8 mg Cyclobenzaprine HCl (Cyclobenzaprine Hcl 10 Mg Tab) 10 mg PO BID PRN PRN Reason: Muscle Spasm Stop: 07/22/25 20:46 Last Admin: 07/02/25 22:00 Dose: 10 mg Dextrose (Dextrose 50% 50 Ml Syringe) 25 - 50 ml IV UD PRN; Protocol PRN Reason: Hypoglycemia Protocol Stop: 07/22/25 22:19 Diclofenac Sodium (Diclofenac Sod 1% Gel 100 Gm Tube) 2 gm EXT Q6H PRN; Pr otocol PRN Reason: right knee pain Stop: 07/26/25 15:14 Last Admin: 07/01/25 08:07 Dose: 2 gm Docusate Sodium (Docusate Sodium 100 Mg Cap) 100 mg PO BID EMPERATRIZ Stop: 07/22/25 20:59 Last Admin: 07/03/25 09:11 Dose: 100 mg Duloxetine HCl (Duloxetine Hcl 60 Mg Cap) 60 mg PO QAM [facility] Stop: 07/23/25 08:59 Last Admin: 07/03/25 09:06 Dose: 60 mg Famotidine (Famotidine 20 Mg Tab) 20 mg PO HS [facility] Stop: 07/22/25 20:59 Last Admin: 07/02/25 07:49 Dose: 20 mg Ferrous Sulfate (Ferrous Sulfate 325 Mg Tab) 325 mg PO DAILY EMPERATRIZ Stop: 07/23/25 08:59 Last Admin: 07/03/25 09:04 Dose: 325 mg Finasteride (Finasteride 5 Mg Tab) 5 mg PO QAM [facility] Stop: 07/23/25 08:59 Last Admin: 07/03/25 09:04 Dose: 5 mg Fluticasone Propionate (Fluticasone Propionate Na Spr 16 Gm Btl) 2 sprays NA QAM [facility] Stop: 07/24/25 10:29 Last Admin: 07/03/25 09:06 Dose: 2 sprays Fluticasone/Vilanterol (Fluticasone/Vilanterol 200/25mcg 14 Puffs/Inhaler) 1 puffs INH DAILY EMPERATRIZ Stop: 07/22/25 22:29 Last Admin: 07/03/25 09:05 Dose: 1 puffs Folic Acid (Folic Acid 1 Mg Tab) 1 mg PO QAM [facility] Stop: 07/23/25 08:59 Last Admin: 07/03/25 09:04 Dose: 1 mg Furosemide (Furosemide 40 Mg Tab) 40 mg PO BID17 EMPERATRIZ Stop: 07/23/25 08:59 Last Admin: 07/03/25 09:00 Dose: 40 mg Gabapentin (Gabapentin 300 Mg Cap) 300 mg PO QID EMPERATRIZ Stop: 07/22/25 20:59 Last Admin: 07/03/25 13:22 Dose: 300 mg Glucagon (Glucagon For Inj 1 Mg Vial) 1 mg SQ UD PRN; Protocol PRN Reason: Hypoglycemia Protocol Stop: 07/22/25 22:19 Glucose (Glucose 40% Gel 15 Gm Tube) 15 - 30 gm PO UD PRN; Protocol PRN Reason: Hypoglycemia Protocol Stop: 07/22/25 22:19 Glucose (Glucose 10 Tab/Tube) 4 - 8 tab PO UD PRN; Protocol PRN Reason: Hypoglycemia Protocol Stop: 07/22/25 22:19 Guaifenesin (Guaifenesin 600 Mg Tabcr) 600 mg PO Q12 EMPERATRIZ Stop: 07/23/25 00:04 Last Admin: 07/03/25 09:04 Dose: 600 mg Promethazine HCl (Phenergan) 12.5 mg in 50.5 mls @ 202 mls/hr IV Q6H PRN PRN Reason: Nausea And Vomiting Stop: 07/22/25 20:49 Last Infusion: 07/03/25 12:20 Dose: Infused Insulin Aspart (Insulin Aspart Per Unit Charge) 0 units SC ACHS EMPERATRIZ Stop: 07/22/25 22:19 Last Admin: 07/03/25 12:55 Dose: 6 units Insulin Glargine (Lantus Per Unit Charge) 40 units SQ HS [facility] Stop: 07/24/25 20:59 Last Admin: 07/02/25 22:08 Dose: 40 units Lactic Acid (Ammonium Lactate 12% Lotion 225 Gm Btl) 1 gm EXT BID EMPERATRIZ Stop: 07/28/25 20:59 Last Admin: 07/03/25 09:05 Dose: 1 gm Lidocaine (Lidocaine 5% 1 Patch) 1 patch TD QAM [facility] Stop: 07/31/25 12:59 Last Admin: 07/03/25 09:06 Dose: 1 patch Metoprolol Succinate (Metoprolol Succ 25mg Ext Rel Tab) 25 mg PO BID EMPERATRIZ Stop: 07/22/25 20:59 Last Admin: 07/03/25 09:03 Dose: 25 mg Miscellaneous (Remove Nicoderm Patch) 1 each N/A DAILY@2058 [facility] Stop: 07/23/25 20:58 Last Admin: 07/02/25 21:58 Dose: 1 each Miscellaneous (Carbohydrates For Hypoglycemia ) 15 - 30 gm PO UD PRN PRN Reason: Hypoglycemia Protocol Stop: 07/22/25 22:19 Miscellaneous (Remove Lidoderm Patch) 1 each N/A DAILY@2100 [facility] Stop: 07/31/25 20:59 Last Admin: 07/02/25 22:03 Dose: 1 each Nicotine (Nicotine 21 Mg/24 Hr Tdsy) 1 patch TD HS EMPERATRIZ Stop: 07/22/25 21:39 Last Admin: 07/02/25 22:01 Dose: 1 patch Oxycodone HCl (Oxycodone Hcl Ir 5 Mg Tab (Immediate Release)) 10 mg PO Q8H PRN PRN Reason: Pain Stop: 07/06/25 20:46 Last Admin: 07/03/25 12:06 Dose: 10 mg Pantoprazole Sodium (Pantoprazole 40 Mg Tab) 40 mg PO BID [facility] Stop: 07/22/25 20:59 Last Admin: 07/03/25 09:00 Dose: 40 mg Polyethylene Glycol (Polyethylene (Miralax) 17 Gm Pack) 17 gm PO DAILY PRN PRN Reason: Constipation Stop: 07/23/25 19:58 Last Admin: 06/30/25 09:43 Dose: 17 gm Potassium Chloride (Potassium Chloride Crtab 20 Meq Tabcr) 20 meq PO BID [facility] Stop: 07/23/25 08:59 Last Admin: 07/03/25 09:00 Dose: 20 meq Sennosides (Senna 8.6 Mg Tab) 8.6 mg PO DAILY PRN PRN Reason: Constipation Stop: 07/22/25 20:46 Last Admin: 07/02/25 07:49 Dose: 8.6 mg Spironolactone (Spironolactone 25 Mg Tab) 25 mg PO DAILY [facility] Stop: 07/24/25 08:59 Last Admin: 07/03/25 09:05 Dose: 25 mg Umeclidinium Colora (Umeclidinium Colora 62.5mcg/Blister 7 Puffs/Inhaler) 1 puffs INH DAILY [facility] Stop: 08/02/25 11:14 Last Admin: 07/03/25 11:25 Dose: 1 puffs Warfarin Sodium (Warfarin Sod 2.5 Mg Tab) 2.5 mg PO Tu@1600 [facility] Stop: 07/26/25 15:59 Last Admin: 06/26/25 16:08 Dose: 2.5 mg Warfarin Sodium (Warfarin Sod 5 Mg Tab) 5 mg PO SuMoWeThFrSa@1600 [facility] Stop: 07/23/25 15:59 Last Admin: 07/02/25 16:34 Dose: 5 mg
[2025-07-03] MEDS: ACETAMINOPHEN 1,000 MG/100 ML VIAL IV STA ×2 (17:04→23:31)
[2025-07-03] MEDS: PROMETHAZINE 12.5 MG/50.5 ML BAG IV STA (23:48)
[2025-07-04 07:16] LABS: Hematocrit (blood only) 37.8 % (42.0-52.0); Hemoglobin 12.3 g/dl (14.0-18.0); Immature Granulocytes # (auto) 0.04 K/uL (0.01-0.20); Immature Granulocytes % (auto) 0.4 %; Mean Corpuscular Hemoglobin 28.0 pg (25.0-34.0); Mean Corpuscular Volume 85.9 fL (80.0-100.0); Platelet Count 208 K/uL (130-400); RDW Standard Deviation 50.9 fL (36.4-46.3); Red Blood Count 4.40 M/uL (4.70-6.10); White Blood Count 10.33 K/ul (4.8-10.8)
[2025-07-04 07:38] LABS: Anion Gap 3.0 (3-11); Blood Urea Nitrogen 21.0 mg/dl (6-23); Calcium 9.2 mg/dl (8.6-10.3); Carbon Dioxide 33.0 mmol/L (21-32); Chloride 100.0 mmol/L (98-107); Creatinine Clr Calc Pharmacy 179.5 ml/min; Glucose 281.0 mg/dl (70-99(Fasting)); Potassium 4.3 mmol/L (3.5-5.1); Sodium 136.0 mmol/L (136-145)
[2025-07-04 07:52] LABS: INR 2.1 (0.9-1.1); Prothrombin Time 21.7 Seconds (9.0-12.0)
--- NOTE | 2025-07-04 14:02 | Hospitalist Progress Note ---
Date of Service July 04, 2025 Assessment & Plan (1) Complicated UTI (urinary tract infection): Plan: 54 yo M w/ PMH of chronic diastolic heart failure (EF 55%, TTE 2023), CAD/STEMI, subdural hematoma/subarachnoid hemorrhage, hypertension, hyperlipidemia, COPD, recurrent PE on Coumadin, DM 2 insulin requiring, recurrent UTIs secondary to BPH/chronic urinary retention indwelling Lloyd catheter, urolithiasis, gastric pneumatosis, anxiety/mood/personality, chronic pain on buprenorphine, drug- seeking behavior as per records, hx MRSA/VRE, ongoing tobacco abuse. He comes in w/ few days history of not feeling well and having chills. Patient feeling weaker and thinks his partner might not be able to care for him at home anymore. IV ciprofloxacin administered at the ER. He is being managed for the following: Complicated UTI CAUTI H/O recurrent UTIs secondary to BPH w chronic indwelling Lloyd catheter Lloyd exchanged in the ED 06/22 Urine culture noncontributory Completed IV meropenem course Continue PT OT Case management to help with discharge plan Atypical chest pain Troponin negative No recurrence of chest pain Monitor Constipation Continue bowel regimen as needed Monitor Right hip pain likely musculoskeletal --Hip CT:No definite fracture. Mild right hip osteoarthritis Continue PT OT Other chronic medical conditions: c/w or resume home meds as and when able. Chronic diastolic heart failure (EF 55%, TTE 2023), patient euvolemic H/O CAD/STEMI as per records H/O Subdural hematoma/subarachnoid hemorrhage as per records Hypertension, stable Hyperlipidemia on statin Rx COPD, chronic exertional SOB symptoms Recurrent PE on Coumadin--monitor INR : 2.1 today DM 2 insulin requiring, suboptimal control as of recent hemoglobin A1c of 8.8 last April 2025. basal bolus insulin, ISS BG goal 110-140, carb count coverage Anxiety/mood/personality disorder as per records, at baseline chronic pain on buprenorphine/drug-seeking behavior as per records: Judicious narcotic use hx MRSA/VRE Functional disability ongoing tobacco abuse: Nicotine patch DVT Px: Coumadin CODE STATUS Full code Admission and Anticipated Discharge Date Admission Date: June 22, 2025 Subjective Patient is seen and examined at bedside States having right hip burning-like sensation Also reports intermittent nausea No other complaints today Review of Systems Review of Systems: All systems reviewed & are unremarkable except as noted in Subjective Physical Exam Physical Exam: Physical Exam: Vitals signs as noted above General Appearance:Morbidly obese, no apparent distress Head: normocephalic, Atraumatic Eyes: normal inspection, EOMI Neck: supple, Trachea midline Respiratory/Chest: Decreased breath sounds, CTA, No accessory muscle use Cardiovascular: S1, S2, No murmur Abdomen/GI:Soft, Non tender, protuberant, Bowel sounds present Extremities/Musculoskeletal:normal inspection, Trace LE edema Neurologic/Psych:AAOX3, grossly no focal neurological deficits Skin: normal color, warm Results & Data Results & Data Vital Signs (Past 12 Hours) Vital Signs Temp Pulse Resp BP Pulse Ox O2 Del Method O2 Flow Rate 07/04/25 07:28 36.7 C 67 16 148/76 H 98 Nasal Cannula 4 Laboratory Results Short CBC 07/04/25 Range/Units 06:49 WBC 10.33 (4.8-10.8) K/ul Hgb 12.3 L (14.0-18.0) g/dl Hct 37.8 L (42.0-52.0) % Plt Count 208 (130-400) K/uL BMP 07/04/25 06:49 Sodium 136 Potassium 4.3 Chloride 100 Carbon Dioxide 33 H BUN 21 Creatinine 0.78 Glucose 281 H Calcium 9.2
[2025-07-04] MEDS: ACETAMINOPHEN 1,000 MG/100 ML VIAL IV ONE (14:20)
[2025-07-05 07:08] LABS: INR 2.0 (0.9-1.1); Prothrombin Time 20.6 Seconds (9.0-12.0)
[2025-07-05] MEDS: ACETAMINOPHEN 1,000 MG/100 ML VIAL IV ONE (13:18)
--- NOTE | 2025-07-05 16:18 | Hospitalist Progress Note ---
Date of Service July 05, 2025 Assessment & Plan (1) Complicated UTI (urinary tract infection): Plan: 54 yo M w/ PMH of chronic diastolic heart failure (EF 55%, TTE 2023), CAD/STEMI, subdural hematoma/subarachnoid hemorrhage, hypertension, hyperlipidemia, COPD, recurrent PE on Coumadin, DM 2 insulin requiring, recurrent UTIs secondary to BPH/chronic urinary retention indwelling Lloyd catheter, urolithiasis, gastric pneumatosis, anxiety/mood/personality, chronic pain on buprenorphine, drug- seeking behavior as per records, hx MRSA/VRE, ongoing tobacco abuse. He comes in w/ few days history of not feeling well and having chills. Patient feeling weaker and thinks his partner might not be able to care for him at home anymore. IV ciprofloxacin administered at the ER. He is being managed for the following: Complicated UTI CAUTI H/O recurrent UTIs secondary to BPH w chronic indwelling Lloyd catheter Lloyd exchanged in the ED 06/22 Urine culture noncontributory Completed IV meropenem course Continue PT OT Case management to help with discharge plan Left foot callus Patient reports having pain with ambulation No signs of infection currently Consult podiatry Atypical chest pain Troponin negative No recurrence of chest pain Monitor Constipation Continue bowel regimen as needed Monitor Right hip pain likely musculoskeletal --Hip CT:No definite fracture. Mild right hip osteoarthritis Continue PT OT Other chronic medical conditions: c/w or resume home meds as and when able. Chronic diastolic heart failure (EF 55%, TTE 2023), patient euvolemic H/O CAD/STEMI as per records H/O Subdural hematoma/subarachnoid hemorrhage as per records Hypertension, stable Hyperlipidemia on statin Rx COPD, chronic exertional SOB symptoms Recurrent PE on Coumadin--monitor INR : 2.1 today DM 2 insulin requiring, suboptimal control as of recent hemoglobin A1c of 8.8 last April 2025. basal bolus insulin, ISS BG goal 110-140, carb count coverage Anxiety/mood/personality disorder as per records, at baseline chronic pain on buprenorphine/drug-seeking behavior as per records: Judicious narcotic use hx MRSA/VRE Functional disability ongoing tobacco abuse: Nicotine patch DVT Px: Coumadin CODE STATUS Full code Admission and Anticipated Discharge Date Admission Date: June 22, 2025 Subjective Patient is seen and examined at bedside Complains of chronic right hip/knee pain Also reports left foot discomfort No other complaints today Review of Systems Review of Systems: All systems reviewed & are unremarkable except as noted in Subjective Physical Exam Physical Exam: Physical Exam: Vitals signs as noted above General Appearance:Morbidly obese, no apparent distress Head: normocephalic, Atraumatic Eyes: normal inspection, EOMI Neck: supple, Trachea midline Respiratory/Chest: Decreased breath sounds, CTA, No accessory muscle use Cardiovascular: S1, S2, No murmur Abdomen/GI:Soft, Non tender, protuberant, Bowel sounds present Extremities/Musculoskeletal:normal inspection, Trace LE edema Neurologic/Psych:AAOX3, grossly no focal neurological deficits Skin: normal color, warm Results & Data Results & Data Vital Signs (Past 12 Hours) Vital Signs Temp Pulse Resp BP Pulse Ox O2 Del Method O2 Flow Rate 07/05/25 14:55 Room Air 07/05/25 14:39 36.6 C 86 16 145/72 H 94 Room Air 07/05/25 07:33 36.4 C L 61 16 134/78 99 Nasal Cannula 4
[2025-07-06 07:12] LABS: INR 1.9 (0.9-1.1); Prothrombin Time 19.2 Seconds (9.0-12.0)
[2025-07-06] MEDS: ACETAMINOPHEN 1,000 MG/100 ML VIAL IV ONE (09:22)
--- NOTE | 2025-07-06 14:02 | Electrocardiogram Report ---
Test Reason : Blood Pressure : */* mmHG Vent. Rate : 65 BPM Atrial Rate : 65 BPM P-R Int : 154 ms QRS Dur : 108 ms QT Int : 374 ms P-R-T Axes : 73 26 50 degrees QTcB Int : 388 ms Normal sinus rhythm Low voltage QRS Borderline ECG When compared with ECG of 05-May-2025 06:21, T wave inversion no longer evident in Anterolateral leads QT has shortened Confirmed by Christian Cunningham ([id number]) on 07/06/2025 2:02:27 PM Referred By: REFERRED SELF Confirmed By: Christian Cunningham
--- NOTE | 2025-07-06 15:18 | Hospitalist Progress Note ---
Date of Service July 06, 2025 Assessment & Plan (1) Complicated UTI (urinary tract infection): Plan: 54 yo M w/ PMH of chronic diastolic heart failure (EF 55%, TTE 2023), CAD/STEMI, subdural hematoma/subarachnoid hemorrhage, hypertension, hyperlipidemia, COPD, recurrent PE on Coumadin, DM 2 insulin requiring, recurrent UTIs secondary to BPH/chronic urinary retention indwelling Lloyd catheter, urolithiasis, gastric pneumatosis, anxiety/mood/personality, chronic pain on buprenorphine, drug- seeking behavior as per records, hx MRSA/VRE, ongoing tobacco abuse. He comes in w/ few days history of not feeling well and having chills. Patient feeling weaker and thinks his partner might not be able to care for him at home anymore. IV ciprofloxacin administered at the ER. He is being managed for the following: Complicated UTI CAUTI H/O recurrent UTIs secondary to BPH w chronic indwelling Lloyd catheter Lloyd exchanged in the ED 06/22 Urine culture noncontributory Completed IV meropenem course Continue PT OT Case management to help with discharge plan Left foot callus--likely chronic Patient reports having pain with ambulation No signs of infection currently Consulted podiatry--pending input Atypical chest pain Troponin negative No recurrence of chest pain Monitor Constipation Continue bowel regimen as needed Monitor Right hip pain likely musculoskeletal --Hip CT:No definite fracture. Mild right hip osteoarthritis Continue PT OT Other chronic medical conditions: c/w or resume home meds as and when able. Chronic diastolic heart failure (EF 55%, TTE 2023), patient euvolemic H/O CAD/STEMI as per records H/O Subdural hematoma/subarachnoid hemorrhage as per records Hypertension, stable Hyperlipidemia on statin Rx COPD, chronic exertional SOB symptoms Recurrent PE on Coumadin--monitor INR : 2.1 today DM 2 insulin requiring, suboptimal control as of recent hemoglobin A1c of 8.8 last April 2025. basal bolus insulin, ISS BG goal 110-140, carb count coverage Anxiety/mood/personality disorder as per records, at baseline chronic pain on buprenorphine/drug-seeking behavior as per records: Judicious narcotic use hx MRSA/VRE Functional disability ongoing tobacco abuse: Nicotine patch DVT Px: Coumadin CODE STATUS Full code Admission and Anticipated Discharge Date Admission Date: June 22, 2025 Subjective Patient is seen and examined at bedside States feeling tired Chronic right hip/knee pain Denies any chest pain, dyspnea, nausea, vomiting, abdominal pain Review of Systems Review of Systems: All systems reviewed & are unremarkable except as noted in Subjective Physical Exam Physical Exam: Physical Exam: Vitals signs as noted above General Appearance:Morbidly obese, no apparent distress Head: normocephalic, Atraumatic Eyes: normal inspection, EOMI Neck: supple, Trachea midline Respiratory/Chest: Decreased breath sounds, CTA, No accessory muscle use Cardiovascular: S1, S2, No murmur Abdomen/GI:Soft, Non tender, protuberant, Bowel sounds present Extremities/Musculoskeletal:normal inspection, Trace LE edema Neurologic/Psych:AAOX3, grossly no focal neurological deficits Skin: normal color, warm Results & Data Results & Data Vital Signs (Past 12 Hours) Vital Signs Temp Pulse Resp BP Pulse Ox O2 Del Method O2 Flow Rate 07/06/25 10:16 Room Air, Nasal Cannula 4 07/06/25 07:31 36.8 C 70 16 136/73 95 Room Air
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
[2025-07-07 00:16] VITALS: RESP 18
[2025-07-07 06:54] LABS: INR 1.9 (0.9-1.1); Prothrombin Time 19.8 Seconds (9.0-12.0)
[2025-07-07 07:17] VITALS: BP 125/72; PULSE 66; TEMP 97.7; O2SAT 93
--- NOTE | 2025-07-07 11:56 | Hospitalist Progress Note ---
Date of Service July 07, 2025 Assessment & Plan (1) Complicated UTI (urinary tract infection): Plan: 54 yo M w/ PMH of chronic diastolic heart failure (EF 55%, TTE 2023), CAD/STEMI, subdural hematoma/subarachnoid hemorrhage, hypertension, hyperlipidemia, COPD, recurrent PE on Coumadin, DM 2 insulin requiring, recurrent UTIs secondary to BPH/chronic urinary retention indwelling Lloyd catheter, urolithiasis, gastric pneumatosis, anxiety/mood/personality, chronic pain on buprenorphine, drug- seeking behavior as per records, hx MRSA/VRE, ongoing tobacco abuse. He comes in w/ few days history of not feeling well and having chills. Patient feeling weaker and thinks his partner might not be able to care for him at home anymore. IV ciprofloxacin administered at the ER. He is being managed for the following: Complicated UTI CAUTI H/O recurrent UTIs secondary to BPH w chronic indwelling Lloyd catheter Lloyd exchanged in the ED 06/22 Urine culture noncontributory Completed IV meropenem course Continue PT OT Case management to help with discharge plan Plan to be discharged home today Left foot callus--likely chronic Patient reports having pain with ambulation No signs of infection currently --S/P debridement Appreciate Podiatry input Continue wound care Advised to follow-up with wound clinic on discharge Weightbearing as tolerated Postoperative boot with any activity Atypical chest pain Troponin negative No recurrence of chest pain Monitor Constipation Continue bowel regimen as needed Monitor Right hip pain likely musculoskeletal --Hip CT:No definite fracture. Mild right hip osteoarthritis Continue PT OT Other chronic medical conditions: c/w or resume home meds as and when able. Chronic diastolic heart failure (EF 55%, TTE 2023), patient euvolemic H/O CAD/STEMI as per records H/O Subdural hematoma/subarachnoid hemorrhage as per records Hypertension, stable Hyperlipidemia on statin Rx COPD, chronic exertional SOB symptoms Recurrent PE on Coumadin--monitor INR : 2.1 today DM 2 insulin requiring, suboptimal control as of recent hemoglobin A1c of 8.8 last April 2025. basal bolus insulin, ISS BG goal 110-140, carb count coverage Anxiety/mood/personality disorder as per records, at baseline chronic pain on buprenorphine/drug-seeking behavior as per records: Judicious narcotic use hx MRSA/VRE Functional disability ongoing tobacco abuse: Nicotine patch DVT Px: Coumadin CODE STATUS Full code Disposition Home Admission and Anticipated Discharge Date Admission Date: June 22, 2025 Subjective Patient is seen and examined at bedside Offers no complaints today Prefers to be discharged home today Denies any chest pain, dyspnea, nausea, vomiting, abdominal pain Review of Systems Review of Systems: All systems reviewed & are unremarkable except as noted in Subjective Physical Exam Physical Exam: Physical Exam: Vitals signs as noted above General Appearance:Morbidly obese, no apparent distress Head: normocephalic, Atraumatic Eyes: normal inspection, EOMI Neck: supple, Trachea midline Respiratory/Chest: Decreased breath sounds, CTA, No accessory muscle use Cardiovascular: S1, S2, No murmur Abdomen/GI:Soft, Non tender, protuberant, Bowel sounds present Extremities/Musculoskeletal:normal inspection, Trace LE edema Neurologic/Psych:AAOX3, grossly no focal neurological deficits Skin: normal color, warm Results & Data Results & Data Vital Signs (Past 12 Hours) Vital Signs Temp Pulse Resp BP Pulse Ox O2 Del Method O2 Flow Rate 07/07/25 09:33 Nasal Cannula 4 07/07/25 07:15 36.5 C 66 18 125/72 93 Room Air 07/07/25 00:15 36.7 C 69 18 110/67 98 Nasal Cannula 4
--- NOTE | 2025-07-07 14:58 | Discharge Summary ---
Date of Service July 07, 2025 Admission HPI Per Admitting Provider History obtained from patient and records. Medical history significant for chronic diastolic heart failure (EF 55%, TTE 2023), history CAD/STEMI as per records, history subdural hematoma/subarachnoid hemorrhage as per records, hypertension, hyperlipidemia, COPD, recurrent PE on Coumadin, DM 2 insulin requiring, recurrent UTIs secondary to BPH/chronic urinary retention indwelling Lloyd catheter, urolithiasis, history gastric pneumatosis, anxiety/mood/personality disorder as per records, chronic pain on buprenorphine, drug-seeking behavior as per records, hx MRSA/VRE, ongoing tobacco abuse. [place] [facility] [place] following [facility] transfer for gastric pneumatosis. EGD showed focal mucosal ischemia without evidence of necrosis. NGT decompression, diagnostic laparoscopy, and antibiotic/antifungal Rx administered during confinement. Few days history of not feeling well and having chills. Congestion symptoms without unusual chest pain or SOB. Not sure about sick contacts. Urine noted to be dark and with occasional passage of clots. Patient worried about UTI. No unusual abdominal or flank pain. No headache. Patient feeling weaker and thinks his partner might not be able to care for him at home anymore. EMS called to patient's home. IV ciprofloxacin administered at the ER. Medical History as above Surgical History : Foot/toe surgery, nerve repair, hand surgery, scalp neck wound injury Family History : Breast cancer, heart disease, COPD Personal/Social history : One pack daily, no EtOH intake, disabled Admission Exam Per Admitting Provider GENERAL: Comfortable, morbidly obese, pleasant, looks older than stated age, no respiratory distress SKIN: Normal color, warm HEENT: Alopecia, bespectacled, pale palpebral conjunctivae, no ptosis, moist buccal mucosa NECK : Supple, short neck, no tenderness CHEST : Decreased breath sounds, no tenderness HEART : RRR, no obvious murmurs ABDOMEN: distention, no tenderness EXTREMITIES : Minimal LE swelling, no LE tenderness, no conspicuous deformities noted NEUROLOGIC : Coherent, no facial asymmetry, gait and stance not assessed Principal Diagnosis Complicated urinary tract infection Left foot callus Discharge Data Allergies Allergy/AdvReac Type Severity Reaction Status Date / Time Iodinated Contrast Media Allergy Severe Itching, Verified 04/05/25 15:12 hypoxia, bronchospasm cefepime Allergy Intermediate Rash Verified 04/05/25 15:12 daptomycin Allergy Intermediate rash Verified 04/05/25 15:12 fentanyl Allergy Intermediate RASH/HIVES/SKIN Verified 04/05/25 15:12 REDNESS acetaminophen [From Tylenol] AdvReac Intermediate IRRITATES Verified 04/05/25 15:12 & UPSET STOMACH Corticosteroids AdvReac Intermediate HALLUCINATIONS Verified 06/28/25 13:48 (Glucocorticoids) WITH STERIOD INJ IN BACK. ibuprofen AdvReac Intermediate CAUSED Verified 04/05/25 15:12 ULCERS naloxone AdvReac Intermediate extremely Verified 04/05/25 15:12 sick valproic acid AdvReac Intermediate PANCREATITS Verified 04/05/25 15:12 Consultations 06/22/25 20:23 ED Decision to Admit Stat 07/05/25 16:17 Consult Podiatry Routine Procedures Performed Laboratory Results WBC 10.33 K/ul (4.8-10.8) 07/04/25 06:49 RBC 4.40 M/uL (4.70-6.10) L 07/04/25 06:49 Hgb 12.3 g/dl (14.0-18.0) L 07/04/25 06:49 Hct 37.8 % (42.0-52.0) L 07/04/25 06:49 MCV 85.9 fL (80.0-100.0) 07/04/25 06:49 MCH 28.0 pg (25.0-34.0) 07/04/25 06:49 MCHC 32.5 g/dL (32.0-36.0) 07/04/25 06:49 RDW Std Deviation 50.9 fL (36.4-46.3) H 07/04/25 06:49 RDW Coeff of Megan 16.0 % (11.5-14.5) H 07/04/25 06:49 Plt Count 208 K/uL (130-400) 07/04/25 06:49 MPV 11.1 fL (9.4-12.4) 07/04/25 06:49 Immature Gran % (Auto) 0.4 % 07/04/25 06:49 Neut % (Auto) 54.4 % 07/04/25 06:49 Lymph % (Auto) 30.7 % 07/04/25 06:49 [place] % (Auto) 7.3 % 07/04/25 06:49 Eos % (Auto) 6.4 % 07/04/25 06:49 Baso % (Auto) 0.8 % 07/04/25 06:49 Neut # (Auto) 5.63 K/uL (1.40-6.50) 07/04/25 06:49 Lymph # (Auto) 3.17 K/uL (1.20-3.40) 07/04/25 06:49 [place] # (Auto) 0.75 K/uL (0.11-0.59) H 07/04/25 06:49 Eos # (Auto) 0.66 K/uL (0.00-0.50) H 07/04/25 06:49 Baso # (Auto) 0.08 K/uL (0.00-0.20) 07/04/25 06:49 Immature Gran # (Auto) 0.04 K/uL (0.01-0.20) 07/04/25 06:49 PT 19.8 Seconds (9.0-12.0) H 07/07/25 05:58 INR 1.9 (0.9-1.1) H 07/07/25 05:58 Sodium 136 mmol/L (136-145) 07/04/25 06:49 Potassium 4.3 mmol/L (3.5-5.1) 07/04/25 06:49 Chloride 100 mmol/L (98-107) 07/04/25 06:49 Carbon Dioxide 33 mmol/L (21-32) H 07/04/25 06:49 Anion Gap 3 (3-11) 07/04/25 06:49 BUN 21 mg/dl (6-23) 07/04/25 06:49 Creatinine 0.78 mg/dl (0.6-1.4) 07/04/25 06:49 Est Cr Clr Drug Dosing 179.5 ml/min 07/04/25 06:49 eGFR 105.98 07/04/25 06:49 BUN/Creatinine Ratio 26.9 (10-20) H 07/04/25 06:49 Glucose 281 mg/dl (70-99(Fasting)) H 07/04/25 06:49 POC Glucose 158 mg/dl (70-99) H 07/07/25 11:22 Calcium 9.2 mg/dl (8.6-10.3) 07/04/25 06:49 Phosphorus 3.9 mg/dl (2.5-4.9) 06/24/25 07:44 Magnesium 2.0 mg/dl (1.7-2.4) 06/24/25 07:44 Total Bilirubin 0.6 mg/dl (0.2-1.0) 06/22/25 18:11 AST 25 U/L (13-39) 06/22/25 18:11 ALT 19 U/L (7-52) 06/22/25 18:11 Alkaline Phosphatase 129 U/L (34-104) H 06/22/25 18:11 Troponin I High Sens 3.4 pg/ml (0-20) 07/02/25 05:34 Total Protein 7.6 gm/dl (6.0-8.3) 06/22/25 18:11 Albumin 3.5 gm/dl (3.4-5.0) 06/22/25 18:11 Globulin 4.1 gm/dl (2.5-4.0) H 06/22/25 18:11 Albumin/Globulin Ratio 0.9 (0.9-2) 06/22/25 18:11 Lipase 7 U/L (11-82) L 06/22/25 18:11 Urine Color Yellow 06/22/25 18:55 Urine Appearance Cloudy (Clear) A 06/22/25 18:55 Urine pH 7.5 (4.5-7.5) 06/22/25 18:55 Ur Specific [place] 1.012 (1.000-1.030) 06/22/25 18:55 Urine Protein 1+ (Negative) H 06/22/25 18:55 Urine Glucose (UA) Negative (Negative) 06/22/25 18:55 Urine Ketones Negative (Negative) 06/22/25 18:55 Urine Blood 2+ (Negative) H 06/22/25 18:55 Urine Nitrite Negative (Negative) 06/22/25 18:55 Urine Bilirubin Negative (Negative) 06/22/25 18:55 Urine Urobilinogen Negative (Negative) 06/22/25 18:55 Ur Leukocyte Esterase 3+ (Negative) H 06/22/25 18:55 Urine WBC (Auto) >50 /hpf (0-5) H 06/22/25 18:55 Urine RBC (Auto) >20 /hpf (0-2) H 06/22/25 18:55 U Hyaline Cast (Auto) 11-20 /lpf (0-2) H 06/22/25 18:55 U Epithel Cells (Auto) 3-5 /hpf (0-2) H 06/22/25 18:55 Urine Bacteria (Auto) 2+ (None Seen) H 06/22/25 18:55 Urine Comment 06/22/25 18:55 Adenovirus (PCR) Not Detected (NotDetected) 06/22/25 21:54 B. pertussis DNA (PCR) Not Detected (NotDetected) 06/22/25 21:54 B.parapertussis DNA PCR Not Detected (NotDetected) 06/22/25 21:54 C. pneumoniae DNA (PCR) Not Detected (NotDetected) 06/22/25 21:54 Coronavirus OC43 (PCR) Not Detected (NotDetected) 06/22/25 21:54 Coronavirus HKU1 (PCR) Not Detected (NotDetected) 06/22/25 21:54 Coronavirus 229E (PCR) Not Detected (NotDetected) 06/22/25 21:54 SARS-CoV-2 (PCR) Not Detected (NotDetected) 06/22/25 21:54 Coronavirus NL63 (PCR) Not Detected (NotDetected) 06/22/25 21:54 Human Metapneumovir PCR Not Detected (NotDetected) 06/22/25 21:54 Influenza Type A (PCR) Not Detected (NotDetected) 06/22/25 21:54 Influenza Type B (PCR) Not Detected (NotDetected) 06/22/25 21:54 M. pneumoniae (PCR) Not Detected (NotDetected) 06/22/25 21:54 Parainfluenza 1 (PCR) Not Detected (NotDetected) 06/22/25 21:54 Parainfluenza 2 (PCR) Not Detected (NotDetected) 06/22/25 21:54 Parainfluenza 3 (PCR) Not Detected (NotDetected) 06/22/25 21:54 Parainfluenza 4 (PCR) Not Detected (NotDetected) 06/22/25 21:54 RSV (PCR) Not Detected (NotDetected) 06/22/25 21:54 Entero/Rhino (PCR) Not Detected (NotDetected) 06/22/25 21:54 Impressions Chest X-Ray 06/22/25 18:52 Clinical History: Shortness of breath Technique: 2 frontal views of the chest were obtained Comparison is made to the prior examination dated 05/04/2015 Findings: There are no confluent pulmonary infiltrates. The heart size is within normal limits. No pleural effusion or pneumothorax is seen. There is no definite pulmonary nodule. No fracture is noted. A cardiac device is present Impression: No active disease Electronically signed by Leodan Cristobal 06-22-2025 7:[address] 06/30/25 12:27 Technique: Axial computed tomography images were obtained of the right hip without intravenous contrast. Sagittal and coronal reconstructions were obtained Findings: No fracture is identified. No subluxation or dislocation is seen. There is mild right hip osteoarthritis. No focal osseous lesion is evident The visualized musculature appears unremarkable. No soft tissue mass or fluid collection is seen. No foreign body is evident The bladder is decompressed, containing a Lloyd catheter Impression: 1. No definite fracture 2. Mild right hip osteoarthritis Electronically signed by Leodan Cristobal 06-30-2025 13:48 PM Ordered Studies 06/30/25 12:27 CT hip RT wo con Urgent Hospital Course (1) Complicated UTI (urinary tract infection): 54 yo M w/ PMH of chronic diastolic heart failure (EF 55%, TTE 2023), CAD/STEMI, subdural hematoma/subarachnoid hemorrhage, hypertension, hyperlipidemia, COPD, recurrent PE on Coumadin, DM 2 insulin requiring, recurrent UTIs secondary to BPH/chronic urinary retention indwelling Lloyd catheter, urolithiasis, gastric pneumatosis, anxiety/mood/personality, chronic pain on buprenorphine, drug- seeking behavior as per records, hx MRSA/VRE, ongoing tobacco abuse. He comes in w/ few days history of not feeling well and having chills. Patient feeling weaker and thinks his partner might not be able to care for him at home anymore. IV ciprofloxacin administered at the ER. He is being managed for the following: Complicated UTI CAUTI H/O recurrent UTIs secondary to BPH w chronic indwelling Lloyd catheter Lloyd exchanged in the ED 06/22 Urine culture noncontributory Completed IV meropenem course Continue PT OT Case management to help with discharge plan Plan to be discharged home today Left foot callus--likely chronic Patient reports having pain with ambulation No signs of infection currently --S/P debridement Appreciate Podiatry input Continue wound care Advised to follow-up with wound clinic on discharge Weightbearing as tolerated Postoperative boot with any activity Atypical chest pain Troponin negative No recurrence of chest pain Monitor Constipation Continue bowel regimen as needed Monitor Right hip pain likely musculoskeletal --Hip CT:No definite fracture. Mild right hip osteoarthritis Continue PT OT Other chronic medical conditions: c/w or resume home meds as and when able. Chronic diastolic heart failure (EF 55%, TTE 2023), patient euvolemic H/O CAD/STEMI as per records H/O Subdural hematoma/subarachnoid hemorrhage as per records Hypertension, stable Hyperlipidemia on statin Rx COPD, chronic exertional SOB symptoms Recurrent PE on Coumadin--monitor INR : 2.1 today DM 2 insulin requiring, suboptimal control as of recent hemoglobin A1c of 8.8 last April 2025. basal bolus insulin, ISS BG goal 110-140, carb count coverage Anxiety/mood/personality disorder as per records, at baseline chronic pain on buprenorphine/drug-seeking behavior as per records: Judicious narcotic use hx MRSA/VRE Functional disability ongoing tobacco abuse: Nicotine patch DVT Px: Coumadin CODE STATUS Full code Disposition Home Total Time Total Time Spent Total Time Spent (In Minutes): 48 minutes Discharge Plan Discharge Items Patient Disposition: Home - Self-Care Reason For Visit: COMP UTI Discharge Diagnosis: Complicated urinary tract infection Left foot callus Condition on Discharge: Fair Activity: Per Instructions section Weightbearing Comment: Left lower extremity weightbearing as tolerated Non-emergency contact: Primary Care Provider and Specialist Call non-emergency contact if: you have any medication questions, your symptoms worsen, your pain is concerning for you and you have a fever Follow-up/Referrals: Kehinde Mc MD [Primary Care Provider] - (Date & Time 07/13/2025 9:00 AM Provider: Kehinde Mc MD [facility], [facility] ) Diet: Carb Consistent or DM2 and Heart Healthy Addtl Attending Provider Instructions: -- Follow-up with your primary care physician Dr. Mc on 07/13/2025 9:00 AM -- Follow-up with your foot drill operator/diabetic foot clinic in 1-2 week as recommended by -- Use postoperative boot with all activity until further instructions by your foot drill operator. --You can weight-bear left foot as tolerated but avoid any barefoot walking until follow-up for further recommendations. -- Continue daily wound dressing as recommended by your foot drill operator. Seek immediate medical attention if your symptoms reoccur or worsen Please review medication list provided on discharge for any medication changes as instructed. Please call if you have any questions or problems. You can reach a [facility] hospitalist on duty at [facility] 24 hours a day by calling [phone] Pending Studies at Discharge: No Stand-Alone Forms: My [facility] [employer], Smoking Cessation Medications and DC Order Prescriptions: Continued gabapentin 300 mg capsule 300 mg PO QID Hold Instructions: Resume on 05/16/25. furosemide 40 mg tablet 40 mg PO BID Hold Instructions: Resume on 05/16/25. cyclobenzaprine 10 mg tablet 10 mg PO BID PRN (Reason: Muscle Spasm) Patient Comments: PT REPORTS TAKING 10MG EVERY NIGHT AT BEDTIME metolazone 2.5 mg tablet 2.5 mg PO [id number] Patient Comments: PATIENT TAKING NEEDED spironolactone 25 mg tablet 25 mg PO DAILY potassium chloride 20 mEq tablet,ER particles/crystals 20 meq PO DAILY ferrous sulfate 325 mg (65 mg iron) tablet 325 mg PO DAILY docusate sodium 100 mg Capsule 100 mg PO BID oxycodone 10 mg tablet 10 mg PO Q8H PRN (Reason: Pain) fluticasone propion-salmeterol 250-50 mcg/dose blister with device 1 inh INHALATION BID atorvastatin 80 mg tablet 80 mg PO PM Rx Instructions: AFTERNOON metoprolol succinate 50 mg tablet extended release 24 hr 75 mg PO BID Hold Instructions: Resume on 05/16/25. Rx Instructions: PT STATES HE TAKES ACCORDING TO HIS BLOOD PRESSURE ondansetron HCl 4 mg tablet 4 mg PO TID PRN (Reason: Nausea And Vomiting) famotidine 20 mg tablet 20 mg PO HS folic acid 1 mg tablet 1 mg PO QAM albuterol sulfate 90 mcg/actuation HFA aerosol inhaler 2 inh INHALATION Q4H PRN (Reason: Shortness Of Breath Or Wheezing) finasteride 5 mg tablet 5 mg PO QAM Hold Instructions: Resume on 05/16/25. buprenorphine HCl 8 mg tablet, sublingual 8 mg SUBLINGUAL TID Hold Instructions: Resume on 05/16/25. Rx Instructions: (take 8mg in the morning,at 1400 take 4 mg then at night take 8mg) duloxetine 60 mg capsule,delayed release(DR/EC) 60 mg PO QAM Hold Instructions: Resume on 05/16/25. aspirin 81 mg Tablet,Delayed Release (Dr/Ec) 81 mg PO QAM Hold Instructions: Resume on 05/16/25. pantoprazole 40 mg Tablet,Delayed Release (Dr/Ec) 40 mg PO BID Qty: 60 0RF sennosides [senna] 8.6 mg Tablet 8.6 mg PO DAILY PRN (Reason: Constipation) ipratropium-albuterol 0.5 mg-3 mg(2.5 mg base)/3 mL Solution For Nebulization 3 ml INHALATION TID PRN (Reason: Wheezing) Incruse Ellipta 62.5 mcg/actuation Blister With Device 1 inh INHALATION DAILY insulin glargine U-300 conc [Toujeo Max U-300 SoloStar] 300 unit/mL (3 mL) insulin pen 60 unit SUBCUT HS warfarin 5 mg tablet 2.5 - 5 mg PO DAILY Hold Instructions: Resume on 05/16/25. Rx Instructions: 2.5 MG Wednesday, THEN 5 MG ALL OTHER DAYS. Discharge Orders: Discharge Order (Routine); Ordered 07/07/25 Ordered By: Dipesh Wright Admission Data Admit Date/Time: 06/22/25 20:46 Attending Provider: Dipesh Wright Admit Provider: Waldemar Galarza Primary Care Provider: Kehinde Mc Other Providers: Waldemar Galarza; [facility]; Henrietta Gomez; [place]; Porfirio Beasley [facility]; Amari Olivera Other Interventions: Discharge Summary Assessment (RN) Last Done: 07/07/25 12:16
== END 2025-07-07 12:34 | disposition home or self-care (01) | DRG 699 ==
LOC: ED 17:32 → INTOOBSV 20:46 → SUATTDRO 20:46 → 2W 20:46 → 3E 06-23 22:55

== ENCOUNTER 2025-08-22 14:06 | Observation (INO) ==
--- NOTE | 2025-08-22 14:23 | Emergency Department Note ---
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 08/24/25 14:52 Dose: 202 mls/hr Documented By: cruz Infusion: 08/23/25 14:49 Dose: Infused Documented By: cdc Admin: 08/23/25 14:20 Dose: 202 mls/hr Documented By: [facility] Insulin Aspart (Insulin Aspart Per Unit Charge) 0 units SC ACHS EMPERATRIZ Stop: 09/21/25 21:47 Last Admin: 08/24/25 12:57 Dose: 11 units Documented By: cruz Co-signed By: JUAN LUIS Admin: 08/24/25 09:45 Dose: 8 units Documented By: cruz Co-signed By: JUAN LUIS Admin: 08/23/25 21:58 Dose: 1 units Documented By: PUNEET Co-signed By: ADELA Admin: 08/23/25 18:03 Dose: 11 units Documented By: cdc Co-signed By: georgie Admin: 08/23/25 12:51 Dose: 10 units Documented By: cdc Co-signed By: AURELIO Admin: 08/23/25 09:32 Dose: 3 units Documented By: cdc Co-signed By: GREGOR Admin: 08/22/25 22:31 Dose: Not Given Documented By: ADELA Insulin Glargine (Lantus Per Unit Charge) 50 units SQ HS EMPERATRIZ Stop: 09/21/25 21:47 Last Admin: 08/23/25 21:58 Dose: 50 units Documented By: PUNEET Co-signed By: ADELA Admin: 08/22/25 22:51 Dose: 50 units Documented By: ADELA Co-signed By: EFK Lactic Acid (Ammonium Lactate 12% Lotion 225 Gm Btl) 1 gm EXT BID [facility] Stop: 09/21/25 21:47 Last Admin: 08/24/25 09:19 Dose: 1 gm Documented By: cruz Admin: 08/23/25 21:57 Dose: 1 gm Documented By: Admin: 08/23/25 09:29 Dose: 1 gm Documented By: filippo Admin: 08/22/25 22:35 Dose: 1 gm Documented By: ADELA Magnesium Oxide (Magnesium Oxide 400 Mg Tab) 400 mg PO BID [facility] Stop: 09/22/25 11:59 Last Admin: 08/24/25 09:15 Dose: 400 mg Documented By: cruz Admin: 08/23/25 22:28 Dose: 400 mg Documented By: Admin: 08/23/25 12:31 Dose: 400 mg Documented By: filippo Metolazone (Metolazone 2.5 Mg Tablet) 2.5 mg PO MoWeFr@0900 [facility] Stop: 09/23/25 08:59 Last Admin: 08/24/25 09:16 Dose: 2.5 mg Documented By: cruz Metoprolol Succinate (Metoprolol Succ 25mg Ext Rel Tab) 75 mg PO BID [facility] Stop: 09/21/25 21:47 Last Admin: 08/24/25 09:17 Dose: 75 mg Documented By: cruz Admin: 08/23/25 21:57 Dose: 75 mg Documented By: Admin: 08/23/25 09:37 Dose: Not Given Documented By: filippo Admin: 08/22/25 22:43 Dose: 75 mg Documented By: ADELA Miscellaneous (Remove Nicoderm Patch) 1 each N/A DAILY@0859 [facility] Stop: 09/22/25 08:58 Last Admin: 08/24/25 09:36 Dose: 1 each Documented By: cruz Admin: 08/23/25 09:35 Dose: 1 each Documented By: filippo Nicotine (Nicotine 21 Mg/24 Hr Tdsy) 1 patch TD QAM [facility] Stop: 09/21/25 21:47 Last Admin: 08/24/25 09:17 Dose: 1 patch Documented By: cruz Admin: 08/23/25 09:38 Dose: 1 patch Documented By: filippo Admin: 08/22/25 22:43 Dose: 1 patch Documented By: ADELA Pantoprazole Sodium (Pantoprazole 40 Mg Tab) 40 mg PO QAM [facility] Stop: 09/22/25 08:59 Last Admin: 08/24/25 09:18 Dose: 40 mg Documented By: cruz Admin: 08/23/25 09:28 Dose: 40 mg Documented By: filippo Potassium Chloride (Potassium Chloride Crtab 20 Meq Tabcr) 20 meq PO DAILY EMPERATRIZ Stop: 09/22/25 08:59 Last Admin: 08/24/25 09:18 Dose: 20 meq Documented By: cruz Admin: 08/23/25 09:28 Dose: 20 meq Documented By: filippo Spironolactone (Spironolactone 25 Mg Tab) 25 mg PO DAILY [facility] Stop: 09/22/25 08:59 Last Admin: 08/24/25 09:19 Dose: 25 mg Documented By: cruz Admin: 08/23/25 09:28 Dose: 25 mg Documented By: filippo Umeclidinium [place] (Umeclidinium [place] 62.5mcg/Blister 7 Puffs/Inhaler) 1 puffs INH DAILY EMPERATRIZ Stop: 09/22/25 08:59 Last Admin: 08/24/25 09:12 Dose: 1 puffs Documented By: cruz Admin: 08/23/25 09:24 Dose: 1 puffs Documented By: filippo Warfarin Sodium (Warfarin Sod 5 Mg Tab) 5 mg PO SuMoWeThFrSa@1600 [facility] Stop: 09/22/25 15:59 Last Admin: 08/23/25 17:21 Dose: 5 mg Documented By: filippo Discontinued Medications Magnesium Sulfate/Dextrose (Magnesium Sulfate / D5w) 1 gm in 100 mls @ 100 mls/hr IV NOW STA Stop: 08/22/25 16:42 Last Infusion: 08/22/25 17:27 Dose: Infused Documented By: vega Admin: 08/22/25 16:27 Dose: 100 mls/hr Documented By: vega Acetaminophen (Ofirmev) 1,000 mg in 100 mls @ 400 mls/hr IV NOW STA Stop: 08/22/25 18:26 Last Infusion: 08/22/25 19:19 Dose: Infused Documented By: Admin: 08/22/25 19:04 Dose: 400 mls/hr Documented By: vega Meropenem 500 mg/ Syringe 10 mls @ 2 mls/min IV Q8H EMPERATRIZ; Protocol Stop: 09/01/25 18:59 Last Admin: 08/23/25 12:31 Dose: 2 mls/min Documented By: cdc Admin: 08/23/25 03:47 Dose: 2 mls/min Documented By: Admin: 08/22/25 20:45 Dose: 2 mls/min Documented By: JANAE Ceftriaxone Sodium (Rocephin) 2,000 mg in 50 mls @ 100 mls/hr IV Q24H EMPERATRIZ Stop: 08/30/25 17:59 Last Infusion: 08/23/25 18:05 Dose: Infused Documented By: cdc Admin: 08/23/25 17:16 Dose: 100 mls/hr Documented By: [facility] Oxycodone HCl (Oxycodone Hcl Ir 5 Mg Tab (Immediate Release)) 10 mg PO Q8H PRN PRN Reason: Severe Pain (Scale Score 7-10) Stop: 09/05/25 22:33 Last Admin: 08/24/25 12:48 Dose: 10 mg Documented By: cruz Admin: 08/24/25 04:23 Dose: 10 mg Documented By: Admin: 08/23/25 18:50 Dose: 10 mg Documented By: cdc Admin: 08/23/25 10:51 Dose: 10 mg Documented By: cdc Admin: 08/22/25 22:44 Dose: 10 mg Documented By: ADELA Discharge Plan Visit Data Chief Complaint: Urinary Symptoms Stated Complaint: foot ulcer, cath not changed, confusion x1 month ED Provider: Reji Dyer ED Midlevel Provider: Neris Boland Discharge Problem: UTI (urinary tract infection), Ambulatory dysfunction, Cellulitis of right foot, Chronic wound Patient Disposition: Admitted As Inpatient Condition: Good Discharge Instructions Interventions: ED Discharge Assessment Last Done: 08/22/25 21:18 Discharge Problem: UTI (urinary tract infection) Qualifiers: Urinary tract infection type: acute cystitis Hematuria presence: with hematuria Qualified Code(s): N30.01 - Acute cystitis with hematuria
[2025-08-22 15:11] LABS: Hematocrit (blood only) 43.7 % (42.0-52.0); Hemoglobin 14.4 g/dL (14.0-18.0); Immature Granulocytes # (auto) 0.04 K/uL (0.01-0.20); Immature Granulocytes % (auto) 0.4 %; Mean Corpuscular Hemoglobin 26.8 pg (25.0-34.0); Mean Corpuscular Volume 81.2 fL (80.0-100.0); Platelet Count 294 K/uL (130-400); RDW Standard Deviation 48.0 fL (36.4-46.3); Red Blood Count 5.38 M/uL (4.70-6.10); White Blood Count 10.81 K/ul (4.8-10.8)
[2025-08-22 15:30] LABS: Alanine Aminotransferase 11.0 U/L (7-52); Albumin Globulin Ratio 0.7 (0.9-2); Albumin Level 3.2 gm/dl (3.4-5.0); Alkaline Phosphatase 126.0 U/L (34-104); Anion Gap 7.0 (3-11); Bilirubin,Total 0.6 mg/dl (0.2-1.0); Blood Urea Nitrogen 7.0 mg/dl (6-23); Calcium 9.2 mg/dl (8.6-10.3); Carbon Dioxide 30.0 mmol/L (21-32); Chloride 99.0 mmol/L (98-107); Creatinine Clr Calc Pharmacy 155.0 ml/min; Globulin 4.3 gm/dl (2.5-4.0); Glucose 180.0 mg/dl (70-99(Fasting)); Lipase 14.0 U/L (11-82); Magnesium 1.5 mg/dl (1.7-2.4); Potassium 3.7 mmol/L (3.5-5.1); Sodium 136.0 mmol/L (136-145); Total Protein 7.5 gm/dl (6.0-8.3)
[2025-08-22 15:48] LABS: INR 3.8 (0.9-1.1); Partial Thromboplastin Time 51 Seconds (21-31); Prothrombin Time 37.3 Seconds (9.0-12.0)
--- NOTE | 2025-08-22 16:01 | XRay Report ---
XR foot RT min 3V routine CLINICAL HISTORY: Wound, pain. COMPARISON: Right foot radiographs November 26, 2022. Right foot CT May 02, 2021. MRI of the right laura t May 04, 2021. FINDINGS: Old, healed fracture of the right fifth proximal phalanx is again noted. There is also a n onunited fracture of the right third metatarsal with associated metallic fragments. No acute fracture s within the right foot are noted. There is subtle cortical erosion of the distal tuft of the distal phalanx of the right second toe. No additional sites of bony erosion are identified. IMPRESSION: 1. Subtle cortical erosion of the distal tuft of the distal phalanx of the right second toe. This may represent acute osteomyelitis and could be correlated with site of wound. 2. Otherwise, unchanged appearance of the right foot. ACT 112: Negative or not required by law. Electronically signed by: Evelio Corbin M.D. 08/22/2025 3:59 PM
--- NOTE | 2025-08-22 16:12 | XRay Report ---
XR chest 1V portable CLINICAL HISTORY: SOB COMPARISON STUDY: 06/22/2025 FINDINGS: The heart is the upper limits of normal in size. An apparent loop recorder projects over th e left cardiac border. There is no failure. There is no focal pulmonary consolidation. There is later al shouldering of the right hemidiaphragm. This could indicate a right pleural effusion. No pneumotho rax is visualized. There is an old healed left clavicular fracture. IMPRESSION: 1. Lateral shouldering of the right hemidiaphragm possibly indicating a subpulmonic right pleural eff usion 2. No evidence of lobar consolidation. ACT 112: Negative or not required by law. Electronically signed by: Luis Castro M.D. 08/22/2025 4:10 PM
[2025-08-22] MEDS: MAGNESIUM SULFATE / D5W 1 GM/100 ML BAG IV STA (16:27)
--- NOTE | 2025-08-22 17:22 | XRay Report ---
History: Pain Comparison: None Findings: There is no acute fracture or dislocation. Alignment is anatomic. Joint spaces are well maintained. 1.5 cm soft tissue wound seen adjacent to the fifth MTP joint. No underlying bony abnormality or destruction. No foreign body. Impression: No acute bony abnormality. Soft tissue wound as above. Electronically signed by Luan Boland 08-22-2025 5:21 PM
--- NOTE | 2025-08-22 18:26 | Emergency Department Note ---
ED Visit Note I was consulted by the Advanced Practice Provider, Neris Boland PA-C. I personally made/approved the management plan and take responsibility for the patient management. I performed a substantive portion of the visit. This includes the aspects of: -History/Physical/Personally seeing the patient -MDM .
[2025-08-22 18:44] LABS: Appearance Urine Cloudy (Clear); Bacteria Urine Automated 1+ (None Seen); Epithelial Cell Urine Auto 0-2 /hpf (0-2); Glucose Urine UA Negative (Negative); RBC Urine Automated >20 /hpf (0-2); WBC Urine Automated >50 /hpf (0-5)
[2025-08-22] MEDS: ACETAMINOPHEN 1,000 MG/100 ML VIAL IV STA (19:04)
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
[2025-08-22] MEDS: MEROPENEM 500 MG in SYRINGE 0 ML IV SCH (20:45)
[2025-08-22] MEDS ORDERED: ONDANSETRON INJ 2 MG/ML 2 ML VIAL IV PRN (21:48)
[2025-08-22] MEDS ORDERED: ACETAMINOPHEN 325 MG TAB PO PRN (21:48)
[2025-08-22] MEDS ORDERED: GLUCAGON FOR INJ 1 MG VIAL SQ PRN (21:48)
[2025-08-22] MEDS ORDERED: GLUCOSE 10 TAB/TUBE PO PRN (21:48)
[2025-08-22] MEDS ORDERED: CARBOHYDRATES FOR HYPOGLYCEMIA PO PRN (21:48)
[2025-08-22] MEDS ORDERED: ALBUTEROL 0.083% NEBU SOLN 3 ML VIAL NEB PRN (21:48)
[2025-08-22] MEDS ORDERED: GLUCOSE 40% GEL 15 GM TUBE PO PRN (21:48)
[2025-08-22] MEDS ORDERED: DEXTROSE 50% 50 ML SYRINGE IV PRN (21:48)
--- NOTE | 2025-08-22 22:06 | Ultrasound Report ---
Exam(s): US ARTERIAL BILATERAL LOWER EXTREMITIES EXAM: US Duplex Bilateral Lower Extremities Arteries CLINICAL HISTORY: foot wound. OTHER: Other Notes: Foot wounds. Pt is diabetic. TECHNIQUE: Real-time duplex ultrasound scan of the bilateral lower extremity arteries integrating B-mode two-dimensional vascular structure, Doppler spectral analysis and color flow Doppler imaging. COMPARISON: No relevant prior studies available. FINDINGS: Right common femoral artery: Peak systolic velocity in the right common femoral artery is 130 cm/s. Multiphasic waveform. Right deep femoral artery: Peak systolic velocity in the right deep femoral artery is 112 cm/s. Biphasic waveform. Right superficial femoral artery: Peak systolic velocity in the right superficial femoral artery is 114 cm/s. Multiphasic waveform. Right popliteal artery: Peak systolic velocity in the right popliteal artery is 70 cm/s. Biphasic waveform. Right calf/foot arteries: Peak systolic velocity in the right posterior tibial artery is 66 cm/s. Biphasic waveform. Peak systolic velocity in the right peroneal artery is 52 cm/s. Biphasic waveform. Peak systolic velocity in the right anterior tibial artery is 152 cm/s consistent with a 30-49% stenosis. Biphasic waveform. Peak systolic velocity in the right dorsalis pedis artery is 131 cm/s. Biphasic waveform. Left common femoral artery: Peak systolic velocity in the left common femoral artery is 151 cm/s consistent with a 30-49% stenosis. Multiphasic waveform. Left deep femoral artery: Peak systolic velocity in the left deep femoral artery is 57 cm/s. Biphasic waveform. Left superficial femoral artery: Peak systolic velocity in the left superficial femoral artery is 130 cm/s. Multiphasic waveform. Left popliteal artery: Peak systolic velocity in the left popliteal artery is 61 cm/s. Biphasic waveform. Left calf/foot arteries: Peak systolic velocity in the left posterior tibial artery is 45 cm/s. Biphasic waveform. Peak systolic velocity in the left peroneal artery is 82 cm/s. Biphasic waveform. Peak systolic velocity in the left anterior tibial artery is 74 cm/s. Biphasic waveform. Peak systolic velocity in the left dorsalis pedis artery is 73 cm/s. Biphasic waveform. Soft tissues: No significant abnormality. IMPRESSION: 1. No evidence for arterial occlusion involving the bilateral lower extremities. 2. Relative elevated velocities involving the right anterior tibial artery suggesting a 30-49% luminal stenosis. However, the anterior tibial and dorsalis pedis arteries demonstrate biphasic waveforms. Electronically signed by: Michael Mahmood MD 08/22/25 22:05 PM
[2025-08-22] MEDS: INSULIN ASPART PER UNIT CHARGE SC SCH (22:31)
[2025-08-22] MEDS: AMMONIUM LACTATE 12% LOTION 225 GM BTL EXT SCH (22:35)
[2025-08-22] MEDS: ATORVASTATIN 40 MG TAB PO SCH (22:42)
[2025-08-22] MEDS: METOPROLOL SUCC 25MG EXT REL TAB PO SCH (22:43)
[2025-08-22] MEDS: NICOTINE 21 MG/24 HR TDSY TD SCH (22:43)
[2025-08-22] MEDS: FUROSEMIDE 40 MG TAB PO SCH (22:43)
[2025-08-22] MEDS: CYCLOBENZAPRINE HCL 10 MG TAB PO PRN (22:43)
[2025-08-22] MEDS: GABAPENTIN 300 MG CAP PO SCH (22:43)
[2025-08-22] MEDS: FAMOTIDINE 20 MG TAB PO SCH (22:44)
[2025-08-22] MEDS: LANTUS PER UNIT CHARGE SQ SCH (22:51)
[2025-08-23] MEDS: guaiFENesin 600 MG TABCR PO SCH (01:36)
[2025-08-23 06:40] LABS: Hematocrit (blood only) 42.1 % (42.0-52.0); Hemoglobin 13.9 g/dL (14.0-18.0); Immature Granulocytes # (auto) 0.04 K/uL (0.01-0.20); Immature Granulocytes % (auto) 0.3 %; Mean Corpuscular Hemoglobin 26.9 pg (25.0-34.0); Mean Corpuscular Volume 81.4 fL (80.0-100.0); Platelet Count 264 K/uL (130-400); RDW Standard Deviation 48.5 fL (36.4-46.3); Red Blood Count 5.17 M/uL (4.70-6.10); White Blood Count 11.60 K/ul (4.8-10.8)
[2025-08-23 07:14] LABS: Anion Gap 6.0 (3-11); Blood Urea Nitrogen 7.0 mg/dl (6-23); Calcium 9.0 mg/dl (8.6-10.3); Carbon Dioxide 32.0 mmol/L (21-32); Chloride 99.0 mmol/L (98-107); Creatinine Clr Calc Pharmacy 168.4 ml/min; Glucose 128.0 mg/dl (70-99(Fasting)); Potassium 3.5 mmol/L (3.5-5.1); Sodium 137.0 mmol/L (136-145)
[2025-08-23 07:28] LABS: INR 3.0 (0.9-1.1); Prothrombin Time 29.9 Seconds (9.0-12.0)
[2025-08-23 07:45] LABS: Hemoglobin A1C 8.4 % (4.5-5.6)
[2025-08-23] MEDS: FLUTICASONE/VILANTEROL 100/25MCG 14 PUFFS/INHALER INH SCH (09:24)
[2025-08-23] MEDS: UMECLIDINIUM BROMIDE 62.5MCG/BLISTER 7 PUFFS/INHALER INH SCH (09:24)
[2025-08-23] MEDS: FERROUS SULFATE 325 MG TAB PO SCH (09:27)
[2025-08-23] MEDS: FOLIC ACID 1 MG TAB PO SCH (09:27)
[2025-08-23] MEDS: POTASSIUM CHLORIDE CRTAB 20 MEQ TABCR PO SCH (09:28)
[2025-08-23] MEDS: SPIRONOLACTONE 25 MG TAB PO SCH (09:28)
[2025-08-23] MEDS: FINASTERIDE 5 MG TAB PO SCH (09:28)
[2025-08-23] MEDS: ASPIRIN 81 MG ECTAB PO SCH (09:28)
[2025-08-23] MEDS: REMOVE NICODERM PATCH SCH (09:35)
[2025-08-23] MEDS: MAGNESIUM OXIDE 400 MG TAB PO SCH (12:31)
[2025-08-23] MEDS: FLUTICASONE PROPIONATE NA SPR 16 GM BTL SCH (12:32)
--- NOTE | 2025-08-23 13:01 | Hospitalist Progress Note ---
Date of Service August 23, 2025 Assessment & Plan (1) Foot ulcer: (2) Urinary tract infection due to indwelling Lloyd catheter: Plan: Suspected (3) Loss of protective sensation of skin of foot: (4) Ambulatory dysfunction: (5) Morbid obesity with BMI of 50.0-59.9, adult: (6) Warfarin anticoagulation: (7) Chronic diastolic CHF (congestive heart failure): (8) Hypomagnesemia: (9) Diabetes mellitus type 2, insulin dependent: (10) COPD (chronic obstructive pulmonary disease): Plan Patient 55-year-old gentleman with numerous chronic medical issues that does not get the regular retention required due to multiple reasons. Patient back in the ED due to the fact that his Lloyd catheter had not been changed for a couple months and was starting to irritate him. Lloyd catheter exchanged in the ED Follow urine culture Continue antibiotics Follow wound cultures and blood cultures Podiatry consultation pending for evaluation of foot ulcerations and wounds Continue monitor glucose cover with insulin Continue to monitor INR and dose warfarin daily Case management Therapies Admission and Anticipated Discharge Date Admission Date: August 22, 2025 Subjective Patient offers no new complaints. Most of issues are chronic and exacerbated due to his inability to have coordinated outpatient care. He did mention that he feels like he might be getting a little bit of a sore throat and a cough Physical Exam Physical Exam: Constitutional: Alert, nontoxic, sitting in bed, morbidly obese HEENT: Mucous membranes moist. Lungs: Clear to auscultation, decreased, no wheezes rales or rhonchi CV: S1-S2, regular Abdomen: Soft, nontender, nondistended Extremities: No significant edema, ulceration left fifth metatarsal joint. Some fluctuance, some tenderness. Abrasion injury anterior right foot with some mild surrounding erythema Derm: Multiple excoriations on legs, patient reports from his dog, excoriations and eschars on forearms, patient states he picks at his skin often. Patch of nummular eczema on left medial upper arm Neuro: No focal deficits Psych: Cooperative, normal mood Results & Data Results & Data Vital Signs (Past 12 Hours) Vital Signs Temp Pulse Resp BP Pulse Ox O2 Del Method O2 Flow Rate 08/23/25 11:18 37.0 C 73 20 126/80 93 Room Air 08/23/25 08:18 36.9 C 59 L 18 132/79 97 Room Air 08/23/25 03:01 36.6 C 63 18 129/70 92 Nasal Cannula 4.5 Diagnostic Findings Reviewed imaging, laboratory and diagnostic studies. Pertinent findings as below. WBCs 11.6 Hemothirteen 0.9 Electrolytes stable Glucoses reviewed Hemoglobin A1c 8.4% Magnesium 1.5 Wound culture growing Staph aureus Urine culture pinpoint growth (10) COPD (chronic obstructive pulmonary disease) COPD type: unspecified COPD Qualified Code(s): J44.9 - Chronic obstructive pulmonary disease, unspecified
[2025-08-23] MEDS: PROMETHAZINE 12.5 MG/50.5 ML BAG IV PRN (14:20)
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
[2025-08-23] MEDS: cefTRIAXone SODIUM 2,000 MG/50 ML BAG IV SCH (17:16)
[2025-08-23] MEDS: WARFARIN SOD 5 MG TAB PO SCH (17:21)
[2025-08-24 07:15] LABS: INR 2.0 (0.9-1.1); Prothrombin Time 20.7 Seconds (9.0-12.0)
[2025-08-24 07:58] LABS: Anion Gap 5.0 (3-11); Blood Urea Nitrogen 9.0 mg/dl (6-23); Calcium 8.7 mg/dl (8.6-10.3); Carbon Dioxide 31.0 mmol/L (21-32); Chloride 101.0 mmol/L (98-107); Creatinine Clr Calc Pharmacy 156.9 ml/min; Glucose 183.0 mg/dl (70-99(Fasting)); Magnesium 1.9 mg/dl (1.7-2.4); Potassium 3.6 mmol/L (3.5-5.1); Sodium 137.0 mmol/L (136-145)
--- NOTE | 2025-08-24 12:40 | Podiatry Progress Note ---
Date of Service August 24, 2025 Assessment & Plan (1) Diabetes mellitus type 2, insulin dependent: (2) Foot ulcer: (3) Personal history of diabetic foot ulcer: (4) Cellulitis of left foot: Plan Patient was examined and evaluated. We discussed at length etiology and treatment of his bilateral foot ulcerations. - Both wounds cleaned, redressed with optifoam border gauze and betadine. - Would benefit from daily betadine wet to dry dressings or similar. - Can d/c home whenever logistics of d/c are established. Will require wound care follow-up, either with home care or at [facility] center. - States he will have difficulty with transfer/transport so wants to minimize outpatient follow-up as much as possible - Will continue to check on until discharge. No further surgical intervention currently planned. Admission and Anticipated Discharge Date Admission Date: August 22, 2025 Subjective Seen at bedside. Good appetite, eating lunch. No new concerns. Interested in discharge plans, wound care plans. States that he does have significant pain to both feet, worse on the left but also to the right. Wanted this noted as my prior note states he had no pain on exam. Otherwise improving. Review of Systems Constitutional: + fever and + weakness; no chills and no fatigue Eyes: no problem reported Ear, Nose, Mouth, Throat: no problem reported Respiratory: no problem reported Cardiovascular: + edema; no problem reported Gastrointestinal: no nausea, no vomiting and no problem reported Genitourinary: + as per Subjective / HPI and + dysuria Musculoskeletal: no problem reported Integumentary: + skin ulcer, + wounds and + erythema Neurologic: + loss of sensation, + numbness and + pa resthesia; no generalized weakness Psychiatric: no problem reported Physical Exam Physical Exam: Lower extremity focused exam: DP/PT pulses nonpalpable, likely secondary to edema and body habitus. Protective sensation, pain sensation both absent to bilateral foot. Erythema noted to left fifth toe, fifth metatarsal. Well circumscribed dry ulceration noted underlying 5th MTPj. This is a neuropathic ulceration measuring 2cm in diameter. Wound is 20% fibrotic, 80% granular. No deep extension is noted, no deep probing or tracking along tendons. No ascending cellulitis appreciated. Scant serosanguineous drainage noted. Right dorsal foot has superficial neuropathic ulceration noted, more consistent with an abrasion. No evidence of local infection noted here. Constitutional: WD/WN, vitals as above + ill appearing and + morbidly obese Eyes: PERRL, conjunctivae normal, anicteric sclerae ENMT: external ear and nose normal, oropharynx normal Mouth: + poor dentition Neck: trachea midline, no thyromegaly normal visual inspection Respiratory: normal respiratory effort; no respiratory distress Cardiovascular: Rate/Rhythm: regular rate and regular rhythm Vessels: + posterior tibial pulses abnormal and + dorsalis pedis pulses abnormal Chest (Breasts): Chest: normal inspection of chest Gastrointestinal (Abdomen): Inspection/Auscultation: abdomen normal to inspection Percussion/Palpation: + abdomen tender and abdomen soft Musculoskeletal: no cyanosis or clubbing, extremities motor strength 5/5 Head/Neck/Chest: normocephalic and head atraumatic Extremities: extremities normal to inspection Skin: + ulcer, + wound, + skin atrophy and + e rythema Neurologic: awake; no focal motor deficits Psychiatric: A+Ox3, euthymic affect Results & Data Results & Data Vital Signs (Past 12 Hours) Vital Signs Temp Pulse Resp BP Pulse Ox O2 Del Method 08/24/25 07:27 36.6 C 60 18 144/75 H 96 Room Air (2) Foot ulcer Laterality: bilateral Non-pressure ulcer stage: with fat layer exposed Qualified Code(s): L97.512 - Non-pressure chronic ulcer of other part of right foot with fat layer exposed; L97.522 - Non-pressure chronic ulcer of other part of left foot with fat layer exposed
--- NOTE | 2025-08-24 14:58 | Hospitalist Progress Note ---
Date of Service August 24, 2025 Assessment & Plan (1) Foot ulcer: (2) Urinary tract infection due to indwelling Lloyd catheter: Plan: Suspected (3) Loss of protective sensation of skin of foot: (4) Ambulatory dysfunction: (5) Morbid obesity with BMI of 50.0-59.9, adult: (6) Warfarin anticoagulation: (7) Chronic diastolic CHF (congestive heart failure): (8) Hypomagnesemia: (9) Diabetes mellitus type 2, insulin dependent: (10) COPD (chronic obstructive pulmonary disease): Plan 55-year-old gentleman with foot ulceration with infection, debrided by podiatry at bedside. Based on sensitivities, transition to oral clindamycin, treat for total 2 weeks Communication with podiatry, continue Betadine dressing daily and outpatient wound care Communication with case management attempting to arrange a home, mobile wound care clinic to follow with the patient's wound. If unable to arrange for home wound care, instructed patient that his would need to learn how to do wound care. She should be here tomorrow morning to learn how to do the dressing changes and he we will need to coordinate transportation to wound clinic proxy once a week. He should anticipate discharge tomorrow Continue other medications Anticipate discharge tomorrow Admission and Anticipated Discharge Date Admission Date: August 22, 2025 Subjective Patient had bedside debridement of his toe yesterday by by podiatry. He does admit to feeling some pain in his feet. Understands need for ongoing wound care Physical Exam Physical Exam: Constitutional: Alert, nontoxic, morbidly obese HEENT: Mucous membranes moist. Lungs: Clear to auscultation, decreased, no wheezes rales or rhonchi CV: S1-S2, regular Abdomen: Soft, nontender, nondistended Extremities: No significant edema, dressings bilateral feet clean and dry Neuro: No focal deficits Psych: Cooperative, normal mood Results & Data Results & Data Vital Signs (Past 12 Hours) Vital Signs Temp Pulse Resp BP Pulse Ox O2 Del Method 08/24/25 07:27 36.6 C 60 18 144/75 H 96 Room Air Diagnostic Findings Reviewed imaging, laboratory and diagnostic studies. Pertinent findings as below. Wound culture growing MRSA Electrolytes stable Creatinine 0.88 Urine culture less than 50,000 organisms (10) COPD (chronic obstructive pulmonary disease) COPD type: unspecified COPD Qualified Code(s): J44.9 - Chronic obstructive pulmonary disease, unspecified
[2025-08-25] MEDS: POLYETHYLENE (MIRALAX) 17 GM PACK PO PRN (08:08)
[2025-08-25 08:21] LABS: INR 1.7 (0.9-1.1); Prothrombin Time 17.2 Seconds (9.0-12.0)
--- NOTE | 2025-08-25 09:27 | XRay Report ---
XR chest 1V portable HISTORY: 55 years-old Male chest pain acute chest pain COMPARISON: 08/22/2025 TECHNIQUE: AP view of the chest FINDINGS: Electronic device projects over the left heart border. The heart is again enlarged. Chronic blunting of the costophrenic angles with mild bibasilar atelectasis. No large pleural effusion. No pneumothora x. Healed chronic left clavicular fracture. Bones appear grossly intact. IMPRESSION: 1. Cardiomegaly without overt pulmonary edema. 2. Mild bibasilar atelectasis. ACT 112: Negative or not required by law. The above report was generated using voice recognition software. It may contain grammatical, syntax o r spelling errors. Electronically signed by: Shelton Apodaca M.D. 08/25/2025 9:26 AM
[2025-08-25] MEDS: ADVANCED PROBIOTIC 625 MG CAPSULE PO SCH (10:01)
--- NOTE | 2025-08-25 11:08 | Hospitalist Progress Note ---
Date of Service August 25, 2025 Assessment & Plan (1) Foot ulcer: (2) Urinary tract infection due to indwelling Lloyd catheter: Plan: Suspected (3) Loss of protective sensation of skin of foot: (4) Ambulatory dysfunction: (5) Morbid obesity with BMI of 50.0-59.9, adult: (6) Warfarin anticoagulation: (7) Chronic diastolic CHF (congestive heart failure): (8) Hypomagnesemia: (9) Diabetes mellitus type 2, insulin dependent: (10) COPD (chronic obstructive pulmonary disease): Plan Per previous hospitalist w/ addendum: 55-year-old gentleman with foot ulceration with infection, debrided by podiatry at bedside. Based on sensitivities, transition to oral clindamycin, treat for total 2 weeks Communication with podiatry, continue Betadine dressing daily and outpatient wound care Communication with case management attempting to arrange a home, mobile wound care clinic to follow with the patient's wound. If unable to arrange for home wound care, instructed patient that his would need to learn how to do wound care. She should be here tomorrow morning to learn how to do the dressing changes and he we will need to coordinate transportation to wound clinic proxy once a week. He should anticipate discharge tomorrow Continue other medications 08/25 Pt says his will be able to come tmrw Pt also reports feeling unwell and reports having recurrent chest pains. Started at first at home around thanksgiving. He had several yesterday and this AM, seems more frequent per pt. Currently pt is in NAD. He appears comfortable, in no resp. distress. he has no CP at this time. He is awake, alert, oriented, answers appropriately. His vital signs are normal, he is on RA. Reports some radiation to left arm and nausea associated with his CP. CXR obtained - normal, Troponin normal, ECG obtained as well. Will obtain echo and will discuss with cardiology. Admission and Anticipated Discharge Date Admission Date: August 22, 2025 Subjective Pt seen in follow up Reports not feeling well Reports recurrent chest pains, says he had some yesterday and also today. Sometimes radiating to his left arm. Reports nausea associated with it. Currently he is sitting up in bed in NAD. He is awake, alert, oriented, answers appropriately, has no respiratory distress, currently no chest pain. Reports having occasional chest pains at home that would come and go, started around thanksgiving currently no fevers, no abd. pain, foot feels ok, pt understands he will need to take care of the wound, and it's a process to heal Pt says his can't come today and she will will be available tomorrow for discharge Review of Systems Review of Systems: All systems reviewed & are unremarkable except as noted in Subjective Physical Exam Physical Exam: Constitutional: Alert, nontoxic, morbidly obese HEENT: Mucous membranes moist. Lungs: Clear to auscultation, decreased, no wheezes rales or rhonchi CV: S1-S2, regular Abdomen: Soft, nontender, nondistended Extremities: No significant edema, dressings bilateral feet clean and dry Neuro: No focal deficits Psych: Cooperative, normal mood Results & Data Results & Data Vital Signs (Past 12 Hours) Vital Signs Temp Pulse Resp BP Pulse Ox O2 Del Method O2 Flow Rate 08/25/25 07:50 36.6 C 61 18 127/77 95 Nasal Cannula 4 08/25/25 01:00 36.7 C 67 20 148/82 H 96 Nasal Cannula Laboratory Results 08/25/25 08/25/25 08/25/25 Range/Units 08:52 07:58 07:27 PT 17.2 H (9.0-12.0) Seconds INR 1.7 H (0.9-1.1) POC Glucose 189 H (70-99) mg/dl Troponin I High Sens 2.4 (0-20) pg/ml 08/24/25 08/24/25 08/24/25 Range/Units 20:46 17:11 11:56 PT (9.0-12.0) Seconds INR (0.9-1.1) POC Glucose 164 H 181 H 206 H (70-99) mg/dl Troponin I High Sens (0-20) pg/ml Medications Administered Current Inpatient Medications Acetaminophen (Acetaminophen 325 Mg Tab) 650 mg PO Q4H PRN PRN Reason: Pain or Fever Stop: 09/21/25 21:47 Albuterol (Albuterol 0.083% Nebu Soln 3 Ml Vial) 2.5 mg NEB Q6R PRN; Protocol PRN Reason: Shortness Of Breath Or Wheezing Stop: 09/21/25 21:47 Aspirin (Aspirin 81 Mg Ectab) 81 mg PO QAM [facility] Stop: 09/22/25 08:59 Last Admin: 08/25/25 08:09 Dose: 81 mg Atorvastatin Calcium (Atorvastatin 40 Mg Tab) 80 mg PO PM EMPERATRIZ Stop: 09/21/25 21:47 Last Admin: 08/24/25 21:24 Dose: 80 mg Buprenorphine HCl (Buprenorphine Hcl 8 Mg Subl) 8 mg SL TID EMPERATRIZ Stop: 09/21/25 21:47 Last Admin: 08/25/25 08:26 Dose: 8 mg Clindamycin HCl (Clindamycin Hcl 300 Mg Cap) 300 mg PO Q6 EMPERATRIZ Stop: 08/31/25 11:59 Last Admin: 08/25/25 06:32 Dose: 300 mg Cyclobenzaprine HCl (Cyclobenzaprine Hcl 10 Mg Tab) 10 mg PO BID PRN PRN Reason: Muscle Spasm Stop: 09/21/25 21:47 Last Admin: 08/25/25 08:08 Dose: 10 mg Dextrose (Dextrose 50% 50 Ml Syringe) 25 - 50 ml IV UD PRN; Protocol PRN Reason: Hypoglycemia Protocol Stop: 09/21/25 21:47 Duloxetine HCl (Duloxetine Hcl 60 Mg Cap) 60 mg PO QAM [facility] Stop: 09/22/25 08:59 Last Admin: 08/25/25 08:10 Dose: 60 mg Famotidine (Famotidine 20 Mg Tab) 20 mg PO HS [facility] Stop: 09/21/25 21:47 Last Admin: 08/24/25 21:24 Dose: 20 mg Ferrous Sulfate (Ferrous Sulfate 325 Mg Tab) 325 mg PO DAILY [facility] Stop: 09/22/25 08:59 Last Admin: 08/25/25 08:09 Dose: 325 mg Finasteride (Finasteride 5 Mg Tab) 5 mg PO QAM [facility] Stop: 09/22/25 08:59 Last Admin: 08/25/25 08:11 Dose: 5 mg Fluticasone Propionate (Fluticasone Propionate Na Spr 16 Gm Btl) 1 sprays NA DAILY [facility] Stop: 09/22/25 11:59 Last Admin: 08/25/25 08:11 Dose: 1 sprays Fluticasone/Vilanterol (Fluticasone/Vilanterol 100/25mcg 14 Puffs/Inhaler) 1 puffs INH DAILY [facility] Stop: 09/22/25 22:14 Last Admin: 08/25/25 08:10 Dose: 1 puffs Folic Acid (Folic Acid 1 Mg Tab) 1 mg PO QAM [facility] Stop: 09/22/25 08:59 Last Admin: 08/25/25 08:09 Dose: 1 mg Furosemide (Furosemide 40 Mg Tab) 40 mg PO BID [facility] Stop: 09/21/25 21:47 Last Admin: 08/25/25 08:10 Dose: 40 mg Gabapentin (Gabapentin 300 Mg Cap) 300 mg PO QID [facility] Stop: 09/21/25 21:59 Last Admin: 08/25/25 08:10 Dose: 300 mg Glucagon (Glucagon For Inj 1 Mg Vial) 1 mg SQ UD PRN; Protocol PRN Reason: Hypoglycemia Protocol Stop: 09/21/25 21:47 Glucose (Glucose 40% Gel 15 Gm Tube) 15 - 30 gm PO UD PRN; Protocol PRN Reason: Hypoglycemia Protocol Stop: 09/21/25 21:47 Glucose (Glucose 10 Tab/Tube) 4 - 8 tab PO UD PRN; Protocol PRN Reason: Hypoglycemia Protocol Stop: 09/21/25 21:47 Guaifenesin (Guaifenesin 600 Mg Tabcr) 600 mg PO Q12 [facility] Stop: 09/22/25 00:59 Last Admin: 08/25/25 08:09 Dose: 600 mg Promethazine HCl (Phenergan) 12.5 mg in 50.5 mls @ 202 mls/hr IV Q6H PRN PRN Reason: Nausea And Vomiting Stop: 09/22/25 11:47 Last Infusion: 08/25/25 10:52 Dose: Infused Insulin Aspart (Insulin Aspart Per Unit Charge) 0 units SC ACHS [facility] Stop: 09/21/25 21:47 Last Admin: 08/25/25 10:04 Dose: 7 units Insulin Glargine (Lantus Per Unit Charge) 50 units SQ HS [facility] Stop: 09/21/25 21:47 Last Admin: 08/24/25 21:25 Dose: 50 units Lactic Acid (Ammonium Lactate 12% Lotion 225 Gm Btl) 1 gm EXT BID [facility] Stop: 09/21/25 21:47 Last Admin: 08/25/25 08:12 Dose: 1 gm Lactobacillus Acidophilus (Advanced Probiotic 625 Mg Capsule) 1,250 mg PO DAILY [facility] Stop: 09/24/25 08:59 Last Admin: 08/25/25 10:01 Dose: 1,250 mg Magnesium Oxide (Magnesium Oxide 400 Mg Tab) 400 mg PO BID [facility] Stop: 09/22/25 11:59 Last Admin: 08/25/25 08:10 Dose: 400 mg Metolazone (Metolazone 2.5 Mg Tablet) 2.5 mg PO MoWeFr@0900 [facility] Stop: 09/23/25 08:59 Last Admin: 08/24/25 09:16 Dose: 2.5 mg Metoprolol Succinate (Metoprolol Succ 25mg Ext Rel Tab) 75 mg PO BID [facility] Stop: 09/21/25 21:47 Last Admin: 08/25/25 08:08 Dose: 75 mg Miscellaneous (Remove Nicoderm Patch) 1 each N/A DAILY@0859 [facility] Stop: 09/22/25 08:58 Last Admin: 08/25/25 08:12 Dose: 1 each Miscellaneous (Carbohydrates For Hypoglycemia ) 15 - 30 gm PO UD PRN PRN Reason: Hypoglycemia Protocol Stop: 09/21/25 21:47 Nicotine (Nicotine 21 Mg/24 Hr Tdsy) 1 patch TD QAM [facility] Stop: 09/21/25 21:47 Last Admin: 08/25/25 08:12 Dose: 1 patch Ondansetron HCl (Ondansetron Inj 2 Mg/Ml 2 Ml Vial) 4 mg IV Q6H PRN PRN Reason: Nausea Stop: 09/21/25 21:47 Oxycodone HCl (Oxycodone Hcl Ir 5 Mg Tab (Immediate Release)) 10 mg PO Q6H PRN PRN Reason: Severe Pain (Scale Score 7-10) Stop: 09/05/25 22:33 Last Admin: 08/25/25 08:07 Dose: 10 mg Pantoprazole Sodium (Pantoprazole 40 Mg Tab) 40 mg PO QAM [facility] Stop: 09/22/25 08:59 Last Admin: 08/25/25 08:10 Dose: 40 mg Polyethylene Glycol (Polyethylene (Miralax) 17 Gm Pack) 17 gm PO DAILY PRN PRN Reason: Constipation Stop: 09/21/25 21:47 Last Admin: 08/25/25 08:08 Dose: 17 gm Potassium Chloride (Potassium Chloride Crtab 20 Meq Tabcr) 20 meq PO DAILY [facility] Stop: 09/22/25 08:59 Last Admin: 08/25/25 08:07 Dose: 20 meq Spironolactone (Spironolactone 25 Mg Tab) 25 mg PO DAILY [facility] Stop: 09/22/25 08:59 Last Admin: 08/25/25 08:11 Dose: 25 mg Umeclidinium Ehrhardt (Umeclidinium Ehrhardt 62.5mcg/Blister 7 Puffs/Inhaler) 1 puffs INH DAILY [facility] Stop: 09/22/25 08:59 Last Admin: 08/25/25 08:10 Dose: 1 puffs Warfarin Sodium (Warfarin Sod 5 Mg Tab) 5 mg PO SuMoWeThFrSa@1600 [facility] Stop: 09/22/25 15:59 Last Admin: 08/24/25 17:59 Dose: 5 mg Warfarin Sodium (Warfarin Sod 2.5 Mg Tab) 2.5 mg PO Tu@1600 [facility] Stop: 09/27/25 15:59 (1) Foot ulcer Laterality: bilateral Non-pressure ulcer stage: with fat layer exposed Qualified Code(s): L97.512 - Non-pressure chronic ulcer of other part of right foot with fat layer exposed; L97.522 - Non-pressure chronic ulcer of other part of left foot with fat layer exposed (10) COPD (chronic obstructive pulmonary disease) COPD type: unspecified COPD Qualified Code(s): J44.9 - Chronic obstructive pulmonary disease, unspecified
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
--- NOTE | 2025-08-25 15:23 | XCELERA ---
[id number] [id number]___[id number]
--- NOTE | 2025-08-25 15:29 | Electrocardiogram Report ---
Test Reason : Blood Pressure : */* mmHG Vent. Rate : 69 BPM Atrial Rate : 69 BPM P-R Int : 178 ms QRS Dur : 112 ms QT Int : 404 ms P-R-T Axes : 8 24 66 degrees QTcB Int : 432 ms Normal sinus rhythm RSR' or QR pattern in V1 suggests right ventricular conduction delay Abnormal ECG When compared with ECG of 02-Jul-2025 10:25, T wave inversion now evident in Anterior leads Confirmed by Janice Hauser (Harika) on 08/25/2025 3:29:05 PM Referred By: REFERRED SELF Confirmed By: Janice Hauser
[2025-08-25] MEDS: ACETAMINOPHEN 1,000 MG/100 ML VIAL IV STA (22:22)
[2025-08-26 06:41] LABS: Hematocrit (blood only) 45.8 % (42.0-52.0); Hemoglobin 14.7 g/dL (14.0-18.0); Mean Corpuscular Hemoglobin 26.5 pg (25.0-34.0); Mean Corpuscular Volume 82.7 fL (80.0-100.0); Platelet Count 307 K/uL (130-400); RDW Standard Deviation 49.2 fL (36.4-46.3); Red Blood Count 5.54 M/uL (4.70-6.10); White Blood Count 13.01 K/ul (4.8-10.8)
[2025-08-26 07:02] LABS: INR 1.8 (0.9-1.1); Prothrombin Time 18.4 Seconds (9.0-12.0)
[2025-08-26 07:49] LABS: Anion Gap 10.0 (3-11); Blood Urea Nitrogen 16.0 mg/dl (6-23); Calcium 10.0 mg/dl (8.6-10.3); Carbon Dioxide 34.0 mmol/L (21-32); Chloride 91.0 mmol/L (98-107); Creatinine Clr Calc Pharmacy 140.9 ml/min; Glucose 187.0 mg/dl (70-99(Fasting)); Magnesium 1.9 mg/dl (1.7-2.4); Potassium 2.9 mmol/L (3.5-5.1); Sodium 135.0 mmol/L (136-145)
[2025-08-26 08:14] VITALS: BP 138/83; PULSE 64; RESP 16; TEMP 97.7; O2SAT 98
--- NOTE | 2025-08-26 09:52 | Discharge Summary ---
Date of Service August 26, 2025 Admission HPI Per Admitting Provider Patient is 55 year old male with PMH chronic diastolic heart failure, chronic venous insufficiency, history of SVT, CAD, history of STEMI, history of subdural hematoma/subarachnoid hemorrhage with no operative intervention, HTN, HLD, COPD, DARIA intolerant to CPAP, history of PE on Coumadin, insulin-requiring DM II with diabetic peripheral neuropathy, GERD, ARNOLD, BPH/chronic urinary retention with chronic indwelling Lloyd catheter placement c/b recurrent UTIs, mood disorder, chronic pain syndrome, on buprenorphine, tobacco use disorder and other problems listed below presented to ER with c/o foot wound and needing his Lloyd catheter replaced. Patient reports presented to ER today because he has not had his Lloyd catheter changed since admission in June. He states he is having itching around catheter site. He states he has been intermittently confused at home which he reports typically happens when he has UTI. He also states has wound to left foot and new wound to top of right foot which he is unsure how developed. He reports having a boot for his foot which he uses, however does state he rests his foot on floor or his recliner chair in the area of the ulceration. He denies noting any discharge. Reports chronic paresthesias and decreased sensation to bilateral legs and feet. Denies any noted redness. He states he has been unable to leave his house for his follow-up appointments. He states he does have a wheelchair but his is unable to push him in wheelchair. He reports he is not interested in considering SNF placement. He states he has lost 15 pounds over the last several months. He feels he has not had any increased edema and feels the volume status he is "doing well".He reports some intermittent nausea however states he is consuming normal diet. Denies vomiting. He reports taking stool softeners for chronic constipation in which he has softer stools. Denies fever/chills, diaphoresis, BURNETTE, dizziness, syncope, CP, SOB, palpitations, cough, sore throat, rhinorrhea, abdominal pain, other rashes, hematuria. Admission Exam Per Admitting Provider General Appearance: obese, apathetic/depressed mood Head: normocephalic, Atraumatic Eyes: normal inspection, EOMI Neck: supple, Trachea midline Respiratory/Chest: Decreased breath sounds 2/2 habitus no wheezes/crackles CTAB Cardiovascular: RRR Abdomen/GI:Soft, Non tender Extremities/Musculoskeletal:volume status appears euvolemic, BLE with venous stasis changes Neurologic/Psych:AAOX3, grossly no focal neurological deficits Skin: multi scattered excoriations from picking behavior as well as pet scratches Wound on left lateral metatarsal head with soft, hemorrhagic blister appears larger and potentially deeper ulceration; right dorsum foot with ulceration that appears to have been from perhaps malfitting footwear based upon location of band like rubbing, no signs of superimposed infection no apparent lesions on the right second toe corresponding to imaging findings Principal Diagnosis (1) Foot ulcer: (2) Urinary tract infection due to indwelling Lloyd catheter: Plan: Suspected (3) Loss of protective sensation of skin of foot: (4) Ambulatory dysfunction: (5) Morbid obesity with BMI of 50.0-59.9, adult: (6) Warfarin anticoagulation: (7) Chronic diastolic CHF (congestive heart failure): (8) Hypomagnesemia: (9) Diabetes mellitus type 2, insulin dependent: (10) COPD (chronic obstructive pulmonary disease): Discharge Exam Constitutional: Alert, nontoxic, morbidly obese HEENT: Mucous membranes moist. Lungs: Clear to auscultation, decreased, no wheezes rales or rhonchi CV: S1-S2, regular Abdomen: Soft, nontender, nondistended Extremities: No significant edema, dressings bilateral feet clean and dry Neuro: No focal deficits Psych: Cooperative, normal mood Discharge Data Allergies Allergy/AdvReac Type Severity Reaction Status Date / Time Iodinated Contrast Media Allergy Severe Itching, Verified 08/22/25 17:50 hypoxia, bronchospasm cefepime Allergy Intermediate Rash Verified 08/22/25 17:50 daptomycin Allergy Intermediate rash Verified 08/22/25 17:50 fentanyl Allergy Intermediate RASH/HIVES/SKIN Verified 08/22/25 17:50 REDNESS acetaminophen [From Tylenol] AdvReac Intermediate IRRITATES Verified 08/22/25 17:50 & UPSET STOMACH Corticosteroids AdvReac Intermediate HALLUCINATIONS Verified 08/22/25 17:50 (Glucocorticoids) WITH STERIOD INJ IN BACK. ibuprofen AdvReac Intermediate CAUSED Verified 08/22/25 17:50 ULCERS naloxone AdvReac Intermediate SHORT OF Verified 08/22/25 17:50 BREATH/SWEATING/extremely sick valproic acid AdvReac Intermediate PANCREATITS Verified 08/22/25 17:50 Consultations 08/22/25 18:00 ED Decision to Admit Stat 08/22/25 21:48 Consult Podiatry Routine 08/25/25 10:57 Consult Cardiology Routine Ordered Studies 08/22/25 18:55 US doppler leg [US arterial duplex LE BI] Routine IMPRESSION: 1. No evidence for arterial occlusion involving the bilateral lower extremities. 2. Relative elevated velocities involving the right anterior tibial artery suggesting a 30-49% luminal stenosis. However, the anterior tibial and dorsalis pedis arteries demonstrate biphasic waveforms. Hospital Course (1) Foot ulcer: (2) Urinary tract infection due to indwelling Lloyd catheter: Suspected (3) Loss of protective sensation of skin of foot: (4) Ambulatory dysfunction: (5) Morbid obesity with BMI of 50.0-59.9, adult: (6) Warfarin anticoagulation: (7) Chronic diastolic CHF (congestive heart failure): (8) Hypomagnesemia: (9) Diabetes mellitus type 2, insulin dependent: (10) COPD (chronic obstructive pulmonary disease): Plan 55-year-old gentleman with foot ulceration with infection, debrided by podiatry at bedside. Based on sensitivities, transitioned to oral clindamycin, treat for total 2 weeks Communication with podiatry, continue Betadine dressing daily and outpatient wound care Communication with case management attempting to arrange a home, mobile wound care clinic to follow with the patient's wound. If unable to arrange for home wound care, instructed patient that his would need to learn how to do wound care. Pt feels comfortable with his doing any dressing changes. RN at the bedside and communicated with (08/26) - will provide supplies for dressing changes as well on discharge. Continue other medications Recurrent chest pain Pt also reported having recurrent chest pains yesterday. Started at first at home around [facility]. He had several during this hosp. stay he reports. no resp. distress, Reports some radiation to left arm and nausea associated with his CP. CXR obtained - normal, Troponin normal, ECG obtained as well. obtained echo and discussed with cardiology. Per cardiology - ECG demonstrating sinus rhy thm with right bundle branch block which is a chronic finding. High-sensitivity troponin within normal limits x2. Echocardiogram demonstrated preserved LV function without regional wall motion abnormality or pericardial effusion. Continue current cardiovascular medications including low-dose aspirin, atorvastatin, Toprol-XL, furosemide, spironolactone, warfarin, and metolazone. Consider outpatient pharmacologic stress testing for further evaluation. Total Time Total Time Spent Total Time Spent (In Minutes): 40 Discharge Plan Discharge Items Patient Disposition: Home - Home Health Services Reason For Visit: FOOT WOUND Discharge Diagnosis: (1) Foot ulcer: (2) Urinary tract infection due to indwelling Lloyd catheter: Plan: Suspected (3) Loss of protective sensation of skin of foot: (4) Ambulatory dysfunction: (5) Morbid obesity with BMI of 50.0-59.9, adult: (6) Warfarin anticoagulation: (7) Chronic diastolic CHF (congestive heart failure): (8) Hypomagnesemia: (9) Diabetes mellitus type 2, insulin dependent: (10) COPD (chronic obstructive pulmonary disease): Condition on Discharge: Good Activity: As commented below Activity Comment: As tolerated Non-emergency contact: Primary Care Provider Call non-emergency contact if: your temperature is above 101 Follow-up/Referrals: Kehinde Mc MD [Primary Care Provider] - (Date & Time 08/30/2025 11:20 AM Provider: Kehinde Mc MD [facility] ) Stan Fuentes DPM [Physician] - Diet: Carb Consistent or DM2 Addtl Attending Provider Instructions: Complete course of antibiotics Continue with diligent wound care Addtl Shirt Marker Provider Instructions: DIABETES RECOMMENDATIONS: 1.) Long-Acting Insulin. - If all blood sugar levels are above 150 x several days, need to restart your long-acting insulin. - Can start at a low dose (10-20 units). - Slowly increase dose until any blood sugar levels/fasting blood sugar levels are below 150. 2.) Quick-Acting Insulin. - If your morning blood sugar levels are below 150 but blood sugar levels increase thru day, need to restart sliding scale. 3.) Monitoring. - Aim to maintain blood sugar levels below 180 (ideally below 150 before meals) to support healing/continued recovery. 4.) Meals. - Aim for regular/balanced meals thru day. - Increase protein intake to support healing. Pending Studies at Discharge: No Stand-Alone Forms: My [employer], Smoking Cessation Medications and DC Order Prescriptions: New clindamycin HCl [Cleocin HCl] 300 mg Capsule 300 mg PO Q6 12 Days Qty: 48 0RF Culturelle 10 billion cell capsule 1 cap PO BID Qty: 60 0RF Continued gabapentin 300 mg capsule 300 mg PO QID Hold Instructions: Resume on 05/16/25. furosemide 40 mg tablet 40 mg PO BID Hold Instructions: Resume on 05/16/25. cyclobenzaprine 10 mg tablet 10 mg PO BID PRN (Reason: Muscle Spasm) Patient Comments: PT REPORTS TAKING 10MG EVERY NIGHT AT BEDTIME metolazone 2.5 mg tablet 2.5 mg PO [id number] Patient Comments: PATIENT TAKING NEEDED Rx Instructions: MON, WED, & FRI spironolactone 25 mg tablet 25 mg PO DAILY potassium chloride 20 mEq tablet,ER particles/crystals 20 meq PO DAILY ferrous sulfate 325 mg (65 mg iron) tablet 325 mg PO DAILY fluticasone propion-salmeterol 250-50 mcg/dose blister with device 1 inh INHALATION BID Rx Instructions: NOT ON [facility] MED LIST, UNABLE TO VERIFY WITH EXT MED HX. atorvastatin 80 mg tablet 80 mg PO PM Rx Instructions: AFTERNOON metoprolol succinate 50 mg tablet extended release 24 hr 75 mg PO BID Hold Instructions: Resume on 05/16/25. Rx Instructions: PT STATES HE TAKES ACCORDING TO HIS BLOOD PRESSURE ondansetron HCl 4 mg tablet 4 mg PO TID PRN (Reason: Nausea And Vomiting) famotidine 20 mg tablet 20 mg PO HS folic acid 1 mg tablet 1 mg PO QAM albuterol sulfate 90 mcg/actuation HFA aerosol inhaler 2 inh INHALATION Q4H PRN (Reason: Shortness Of Breath Or Wheezing) Rx Instructions: NOT ON [facility] MED LIST, UNABLE TO VERIFY WITH EXT MED HX. finasteride 5 mg tablet 5 mg PO QAM Hold Instructions: Resume on 05/16/25. buprenorphine HCl 8 mg tablet, sublingual 8 mg SUBLINGUAL TID Hold Instructions: Resume on 05/16/25. Rx Instructions: (take 8mg in the morning,at 1400 take 4 mg then at night take 8mg) duloxetine 60 mg capsule,delayed release(DR/EC) 60 mg PO QAM Hold Instructions: Resume on 05/16/25. aspirin 81 mg Tablet,Delayed Release (Dr/Ec) 81 mg PO QAM Hold Instructions: Resume on 05/16/25. ipratropium-albuterol 0.5 mg-3 mg(2.5 mg base)/3 mL Solution For Nebulization 3 ml INHALATION TID PRN (Reason: Wheezing) Rx Instructions: NOT ON [facility] MED LIST, UNABLE TO VERIFY WITH EXT MED HX. Incruse Ellipta 62.5 mcg/actuation Blister With Device 1 inh INHALATION DAILY Rx Instructions: NOT ON [facility] MED LIST, UNABLE TO VERIFY WITH EXT MED HX. insulin glargine U-300 conc [Toujeo Max U-300 SoloStar] 300 unit/mL (3 mL) insulin pen 60 unit SUBCUT HS warfarin 5 mg tablet 2.5 - 5 mg PO DAILY Hold Instructions: Resume on 05/16/25. Rx Instructions: 2.5 MG Wednesday, THEN 5 MG ALL OTHER DAYS pantoprazole 40 mg tablet,delayed release (DR/EC) 40 mg PO QAM oxycodone 10 mg tablet 10 mg PO Q8 PRN (Reason: Severe Pain (Scale Score 7-10)) Discharge Orders: Discharge Order (Routine); Ordered 08/26/25 Ordered By: Derrell Whitley Admission Data Admit Date/Time: 08/22/25 18:43 Attending Provider: Derrell Whitley Admit Provider: Catherine Saenz Primary Care Provider: Kehinde Mc Other Providers: Stan Fuentes; Catherine Saenz; [facility]; [facility]; Forrets Badillo; Jacob Penn
[2025-08-28] MEDS ORDERED: WARFARIN SOD 2.5 MG TAB PO SCH (16:00)
== END 2025-08-26 11:03 | disposition home health service (06) | DRG 699 ==
LOC: ED 14:06 → SUATTDRO 18:43 → INTOOBSV 18:43 → 2W 18:43 → 3E 08-26 00:27